=== PATIENT | male | born 1965 | race Caucasian/White ===

== ENCOUNTER 2019-10-28 17:57 | Emergency (ER) | payer MEDICARE, MEDICAID, SELFPAY ==
[2019-10-28] VITALS (8 sets, daily range): BP systolic 111–158; BP diastolic 80–90; PULSE 99–117; RESP 14–28; TEMP 37.2; O2SAT 93–99
--- NOTE | ~2019-10-28 | XR_ITS ---
EXAMINATION: XR chest 2V EXAM DATE: 10/28/2019 18:32 INDICATION: Shortness of breath, COPD, emphysema. TECHNIQUE: Frontal and lateral projections of the chest obtained and reviewed. Comparison is made to prior examination from 10/14/2019. FINDINGS: Near resolution of right middle lobe atelectasis previously seen. Lungs are moderately hype rinflated. No acute airspace disease, pneumothorax or pleural effusion. Cardiomediastinal silhouette is normal. IMPRESSION: Interval improvement of right middle lobe atelectasis. Hyperinflation. Reviewed, dictated and finalized at location A. MAKER IMPRESSION: Interval improvement of right middle lobe atelectasis. Hyperinflat ion.
--- NOTE | 2019-10-28 18:01 | ECG_ITS ---
Measurements Intervals [place] Rate: 116 P: 70 [place]: 116 QRS: 80 QRSD: 82 T: -60 QT: 302 QTc: 420 Interpretive Statements SINUS TACHYCARDIA WITH SHORT [place] INTERVAL DELAYED PRECORDIAL R/S TRANSITION NONSPECIFIC ST & T-WAVE ABNORMALITY- INF/LAT LEADS BASELINE ARTIFACT- I, II, III, AVR, AVL, AVF, V1-V2, V6 ABNORMAL ECG Electronically Signed On 10-29-2019 7:02:12 BUSINESS INTELLIGENCE DEVELOPER by Cal Carranza D.O.
[2019-10-28 18:25] LABS: Hematocrit 41.4 % (42.0-52.0); Hemoglobin 13.3 g/dL (14.0-18.0); Mean Corpuscular HGB Conc 32.1 g/dl (32-36); Mean Corpuscular Hemoglobin 34.6 pg (26-34); Mean Corpuscular Volume 107.8 fl (80-100); Mean Platelet Volume 11.1 fl (7.4-10.4); Platelet Count Result 127 k/mm3 (150-375); Red Blood Count 3.84 M/mm3 (4.6-6.20); Red Cell Distribution Width 15.7 % (11.5-14.5); White Blood Count 21.4 K/mm3 (4.5-10.0)
[2019-10-28 18:32] LABS: INR 0.9; Prothrombin Time 11.4 Seconds (11.1-14.7)
[2019-10-28 18:43] LABS: Band Neutrophils Percent 3 % (0-6); Lymphocytes Absolute Manual 1.07 K/mm3 (1.1-4.5); Monocytes Absolute Manual 0.21 K/mm3 (0.1-0.90); Monocytes Percent Manual 1 % (3-9); Neutrophils Absolute Manual 20.11 K/mm3 (1.3-6.7); Neutrophils Percent Manual 91 % (46-73); Nucleated Red Blood Cells 14 %; Total Cells Counted 100
[2019-10-28 18:44] LABS: Anisocytosis 2+ (NORMAL)
--- NOTE | 2019-10-28 18:47 | ED.SOB ---
HPI - SOB/Dyspnea General Chief Complaint: Shortness of Breath/Dyspnea Stated Complaint: SOB Time Seen by Provider: 10/28/19 18:34 Source: patient Mode of arrival: EMS Limitations: no limitations History of Present Illness HPI Narrative: A 54 y/o male presents to the ED, via EMS, with c/o SOB. Pt states that his lungs were not expanding at home today so he called EMS. He has a PMHx of COPD, emphysema, stem cell transplant, and home O2. Pt notes that he is on 3L home O2 during the day, 1-2L home O2 at night, and 5L home O2 during exertion. He was given 15L O2 en route and the patient states that his lungs now want to expand in the ED. Pt rates the SOB a 3/10 in severity in the ED. Dr. Khan is his as400 programmer. He reports BLE edema and urinary frequency. Pt takes Xarelto and Furosemide 20mg daily. He reports that he took double his dose of Furosemide today due to the BLE edema. MD elicited complaint: shortness of breath Pertinent past history: COPD and other (Emphysema, home O2) Timing: improved Relieving factors: oxygen Known history of: COPD and other (Emphysema, home O2) Associated symptoms: other (BLE edema, urinary frequency) Treatment prior to arrival: oxygen Related Data Home Medications Medication Instructions Recorded Confirmed Basaglar KwikPen U-100 Insulin 30 unit SUBCUT DAILY 09/17/19 10/15/19 Novolog Flexpen U-100 Insulin 9 unit SUBCUT TID 09/17/19 10/15/19 Xarelto 20 mg PO DAILY 09/17/19 10/15/19 acyclovir [Zovirax] 400 mg PO TID 09/17/19 10/15/19 albuterol sulfate 2.5 mg INHALATION Q6H PRN 09/17/19 10/15/19 albuterol sulfate [Ventolin HFA] 18 inh INHALATION QID 09/17/19 10/15/19 atorvastatin [Lipitor] 40 mg PO DAILY 09/17/19 10/15/19 furosemide [Lasix] 20 mg PO DAILY 09/17/19 10/15/19 gabapentin 100 mg PO DAILY PRN 09/17/19 10/15/19 gabapentin [Neurontin] 300 mg PO QID 09/17/19 10/15/19 guaifenesin 1,200 mg PO BID 09/17/19 10/15/19 insulin lispro [Humalog KwikPen 10 - 16 unit SUBCUT TID 09/17/19 10/15/19 Insulin] magnesium oxide [MagOx] 400 mg PO DAILY 09/17/19 10/15/19 montelukast [Singulair] 10 mg PO HS 09/17/19 10/15/19 mycophenolate mofetil [CellCept] 1,000 mg PO Q12H 09/17/19 10/15/19 ofloxacin [Ocuflox] 1 - 2 drp OPHTHALMIC (EYE) TID PRN 09/17/19 10/15/19 prednisone 20 mg PO DAILY 09/17/19 10/15/19 tacrolimus [Prograf] 0.5 mg PO EVERY OTHER DAY 09/17/19 10/15/19 sodium chloride 0.65 % nasal spray 2 spray NASAL QID PRN 10/06/19 10/15/19 aerosol Trelegy Ellipta See Rx Instructions .ROUTE .COMPLEX 10/15/19 10/15/19 nicotine [Nicoderm CQ] 1 patch TRANSDERMAL DAILY 10/15/19 10/15/19 tramadol 50 mg PO Q6H PRN MDD 3 10/15/19 10/15/19 Allergies Allergy/AdvReac Type Severity Reaction Status Date / Time adhesive Allergy Unknown Hives Verified 10/28/19 18:06 adhesive tape AdvReac Mild REDNESS Verified 10/28/19 18:06 AND IRRITATION Review of Systems Review of Systems: All systems reviewed & are unremarkable except as noted in HPI and below Cardiovascular: Cardiovascular: Reports edema (BLE) Respiratory: Respiratory: Reports dyspnea Genitourinary: Genitourinary: Reports urinary frequency [facility] Past Medical History Medical History (Updated 10/28/19 @ 20:49 by Wilbert Ayoub MD) Acute exacerbation of chronic obstructive airways disease Acute myeloid leukemia AML (acute myeloblastic leukemia) Anemia Anxiety Bilateral cataracts COPD (chronic obstructive pulmonary disease) Depression Diabetes 1.5, managed as type 2 DVT (deep venous thrombosis) Dysphagia Eczema Emphysema/COPD History of blood transfusion History of chemotherapy History of radiation therapy Hyperglycemia Hyperlipidemia Hypoxemic respiratory failure, chronic Left tibial fracture Liver failure MRSA (methicillin resistant staph aureus) culture positive On home O2 Peripheral neuropathy Peyronie's disease Pneumonia Pulmonary emboli Renal disease Renal failure Right middle lobe pulmonary infiltrate Tibia fracture Venous thr
[2019-10-28 18:55] LABS: Blood Urea Nitrogen 27 mg/dL (9-20); Calcium 8.1 mg/dL (8.4-10.2); Carbon Dioxide 31 mmol/L (22-30); Chloride 98 mmol/L (98-107); Estimated Glomerular Filt Rate > 60; Glucose 372 mg/dL (75-110); Potassium 3.7 mmol/L (3.4-5.0); Sodium 137 mmol/L (137-145)
[2019-10-28 19:05] LABS: NT Pro B Type Natriuretic Pept 526 PG/ML (5-100); Troponin I 0.022 ng/mL (0.000-0.034)
[2019-10-28] MEDS: BUMETANIDE INJ 1 MG/4 ML VIAL 2 MG IV PUSH (19:17)
[2019-10-28 19:20] LABS: Alveolar/Arterial O2 Gradient 77.7 mmHg; Base Excess ABG 6.5 mEq/l (+/-2.0); Device NASAL CANNULA; Fractional Inspired Oxygen 28 %; HCO3 ABG 32.5 mEq/l (22.0-26.0); Modified Allen's Test Pass; Oxygen Content ABG 17.7 %vol (16.0-22.0); Oxygen Saturation ABG 91.4 % (95.0-100.0); Oxyhemoglobin 88.9 % THb (90.0-100.0); PCO2 ABG 51.7 mmHg (35.0-45.0); PO2 ABG 60.9 mmHg (80.0-100.0); PO2 FiO2 Ratio Arterial Blood 2.17 %; Site Drawn RIGHT RADIAL; Total Hemoglobin 14.2 g/dL (12.0-18.0); pH ABG 7.416 (7.350-7.450)
[2019-10-28] MEDS: ALBUTEROL SULFATE NEB 2.5 MG/0.5 ML INH 5 MG INHALATION (19:24)
[2019-10-28] MEDS: IPRATROPIUM BR 0.02% INH SOLN 0.5 MG/2.5 ML VIAL INHALATION (19:24)
[2019-10-28 19:26] LABS: Hepatitis B Surface Antigen Negative (Negative)
[2019-10-28 19:43] LABS: HIV 1/2 Ab P24 Ag Result Negative (Negative); Hepatitis C Virus Antibody Negative (Negative)
[2019-10-28] MEDS: INSULIN HUMAN REGULAR (*BKC) 100 UNITS/ML 10 UNITS IV PUSH (21:01)
== END 2019-10-28 21:26 | disposition home or self-care (01) ==
PROVIDERS: Emergency Medicine; Emergency Provider Emergency Medicine; PCP Internal Medicine
DX: J44.9 Chronic obstructive pulmonary disease, unspecified (principal); E11.65 Type 2 diabetes mellitus with hyperglycemia; I27.81 Cor pulmonale (chronic); F17.210 Nicotine dependence, cigarettes, uncomplicated; Z94.84 Stem cells transplant status; Z99.81 Dependence on supplemental oxygen
CPT/HCPCS: 36415; 36600; 71046; 80048; 82805; 83880; 84484; 85025; 85610; 85730; 86703; 86803; 87340; 93005; 94640; 96374; 96375; 99284; G0432; J1815

== ENCOUNTER 2020-09-07 08:03 | Outpatient (CLI) | payer MEDICARE, MEDICAID, SELFPAY ==
[2020-09-07 08:45] VITALS: PULSE 96; O2SAT 93
[2020-09-07 08:50] VITALS: PULSE 137; O2SAT 92
[2020-09-07 09:15] VITALS: PULSE 98; O2SAT 93
--- NOTE | 2020-09-07 11:38 | HOMEO2EVAL ---
Home Oxygen Evaluation RC: Home Oxygen (O2) Evaluation Start: 09/07/20 11:33 Freq: Status: Active Protocol: RPE Activity Type Activity Date Activity User E-Sign Co-Sign Detail Recorded Client Recorded Date Recorded By Document 09/07/20 08:45 [email or web address] [email or web address] 09/07/20 11:37 DJO Document 09/07/20 08:50 [email or web address] [email or web address] 09/07/20 11:37 DJO Document 09/07/20 09:15 [email or web address] [email or web address] 09/07/20 11:37 DJO 09/07/20 09/07/20 09/07/20 08:45 08:50 09:15 Home O2 Evaluation Test Phase Resting Exercise Resting Oxygen Delivery Room Air Room Air Pulse Oximetry (90-100 %) 93 92 93 Pulse Rate (60-100 beats/min) 96 137 H 98 Ambulation Distance (feet) 1,000 Treatment Charges O2 Evaluation
== END 2020-09-07 08:04 | disposition home or self-care (01) ==
PROVIDERS: PCP Internal Medicine; Visit Provider Internal Medicine Critical Care Medicine
DX: J96.10 Chronic respiratory failure, unspecified whether with hypoxia or hypercapnia (principal)
CPT/HCPCS: 94618

== ENCOUNTER 2020-09-23 09:40 | Outpatient (CLI) | payer MEDICARE, MEDICAID, SELFPAY ==
[2020-09-23 10:22] VITALS: PULSE 96; O2SAT 98
[2020-09-23 10:26] VITALS: PULSE 115; O2SAT 92
[2020-09-23 10:35] VITALS: PULSE 103; O2SAT 98
--- NOTE | 2020-09-23 11:35 | HOMEO2EVAL ---
Home Oxygen Evaluation RC: Home Oxygen (O2) Evaluation Start: 09/23/20 11:29 Freq: Status: Active Protocol: RPE Activity Type Activity Date Activity User E-Sign Co-Sign Detail Recorded Client Recorded Date Recorded By Document 09/23/20 10:22 [email or web address] [email or web address] 09/23/20 11:30 KLA Document 09/23/20 10:26 [email or web address] [email or web address] 09/23/20 11:33 KLA Document 09/23/20 10:35 KLA [email or web address] 09/23/20 11:33 KLA 09/23/20 09/23/20 09/23/20 10:22 10:26 10:35 Home O2 Evaluation Test Phase Resting Exercise Resting Oxygen Delivery Room Air Room Air Room Air Pulse Oximetry (90-100 %) 98 92 98 Pulse Rate (60-100 beats/min) 96 115 H 103 H Ambulation Distance (feet) 400 Treatment Charges O2 Evaluation
== END 2020-09-23 09:41 | disposition home or self-care (01) ==
LOC: ANHPFT 09:41
PROVIDERS: PCP Internal Medicine; Visit Provider Nurse Practitioner Family
DX: J96.11 Chronic respiratory failure with hypoxia (principal)
CPT/HCPCS: 94618

== ENCOUNTER 2020-11-14 13:01 | Emergency (ER) | payer MEDICARE, MEDICAID, SELFPAY ==
--- NOTE | ~2020-11-14 | XR_ITS ---
XR chest 1V portable DATE: 11/14/2020 14:01 INDICATION: Palpitations TECHNIQUE: Portable upright AP views on 11/14/2020 at 1351 hours COMPARISON: AP and lateral views FINDINGS: Bilateral hyperinflation consistent with COPD. Minimal bilateral apical capping. No pulmona ry infiltrate or consolidation, pleural effusion or pulmonary vascular congestion or pneumothorax. No hilar or mediastinal enlargement. Aortic arch calcification. There is levoscoliosis of the upper thoracic spine. Diffuse osteopenia. IMPRESSION: COPD Reviewed, dictated and finalized at location A. AYS CONTROL SPECIALIST IMPRESSION: COPD
--- NOTE | 2020-11-14 13:15 | PC.NURSE ---
patient brought back to ED room 7 with c/o chest pressure and palpitations. HR 160's. alert. oriented. hx of COPD.
[2020-11-14 13:18] VITALS: BP 96/72; PULSE 101; RESP 20; TEMP 36.2; O2SAT 97
--- NOTE | 2020-11-14 13:28 | PC.NURSE ---
2nd EKG performed 1323, shown to CRYSTAL
--- NOTE | 2020-11-14 13:30 | PC.NURSE ---
patient converted to SR after valsalva maneuver per provider. NS continues. patient on quality assurance monitor body. alert. oriented. denies pain. aware of plan to monitor his heart rate and then plan for discharge. see provider notes for description of procedure.
--- NOTE | 2020-11-14 13:32 | ED.ARRPALP ---
HPI - Arrhythmia/Palpitations General Chief Complaint: Arrhythmia/Palpitations Stated Complaint: my heart rate is 165 Time Seen by Provider: 11/14/20 13:21 Source: patient Limitations: no limitations History of Present Illness HPI narrative: Patient is 55 years old white male was sitting on his bed this morning and suddenly noticed that his heart is running fast. Patient denies any fever, chills, nausea, vomiting, chest pain, shortness of breath, lightheadedness, back pain or headache. Patient had similar symptoms probably 2 years ago with a diagnosis of paroxysmal SVT. Patient denies any new medications. Patient did not take his regular medication in the morning prior to arrival. History of stem cell transplant over 10 years ago scheduled to see his oncologist next month for regular checkup. Related Data Home Medications Medication Instructions Recorded Confirmed Basaglar KwikPen U-100 Insulin 30 unit SUBCUT DAILY 09/17/19 08/08/20 Xarelto 20 mg PO DAILY 09/17/19 08/08/20 acyclovir [Zovirax] 400 mg PO TID 09/17/19 08/08/20 albuterol sulfate 2.5 mg INHALATION Q6H PRN 09/17/19 08/08/20 albuterol sulfate [Ventolin HFA] 18 inh INHALATION QID PRN 09/17/19 08/08/20 atorvastatin [Lipitor] 40 mg PO DAILY 09/17/19 08/08/20 gabapentin 100 mg PO DAILY PRN 09/17/19 08/08/20 gabapentin [Neurontin] 300 mg PO HS PRN 09/17/19 08/08/20 insulin lispro [Humalog KwikPen 10 - 16 unit SUBCUT TIDWM 09/17/19 08/08/20 Insulin] montelukast [Singulair] 10 mg PO HS 09/17/19 08/08/20 ofloxacin [Ocuflox] 1 - 2 drp OPHTHALMIC (EYE) BID PRN 09/17/19 08/08/20 tacrolimus [Prograf] 0.5 mg PO DAILY 09/17/19 08/08/20 sodium chloride 0.65 % nasal spray 2 spray NASAL QID PRN 10/06/19 08/08/20 aerosol Trelegy Ellipta See Rx Instructions .ROUTE .COMPLEX 10/15/19 08/08/20 Allergies Allergy/AdvReac Type Severity Reaction Status Date / Time adhesive Allergy Unknown Hives Verified 10/28/19 18:06 adhesive tape AdvReac Mild REDNESS Verified 10/28/19 18:06 AND IRRITATION Review of Systems Review of Systems: Narrative: CONSTITUTIONAL: Denies fever, chills, or sweats. EYES: Denies visual changes, redness, or discharge. ENT: Denies rhinorrhea, congestion, sore throat, or otalgia. CARDIOVASCULAR: Denies chest pain, palpitations, or edema. RESPIRATORY: Denies cough or dyspnea. GASTROINTESTINAL: Denies abdominal pain, nausea, vomiting, or diarrhea. GENITOURINARY: Denies dysuria or hematuria. SKIN: Denies rash or itching. MUSCULOSKELETAL: Denies back pain, joint pain, or myalgia. NEUROLOGIC: Denies headache, numbness, or weakness. PSYCHIATRIC: Denies anxiety or depression. [facility] Past Medical History Medical History (Updated 11/14/20 @ 13:50 by Desi Chambers MD) Acute exacerbation of chronic obstructive airways disease Acute myeloid leukemia AML (acute myeloblastic leukemia) Anemia Anxiety Bilateral cataracts COPD (chronic obstructive pulmonary disease) Depression Diabetes 1.5, managed as type 2 DVT (deep venous thrombosis) Dysphagia Eczema Emphysema/COPD History of blood transfusion History of chemotherapy History of radiation therapy Hyperglycemia Hyperlipidemia Hypoxemic respiratory failure, chronic Left tibial fracture Liver failure MRSA (methicillin resistant staph aureus) culture positive On home O2 Peripheral neuropathy Peyronie's disease Pneumonia Pulmonary emboli Renal disease Renal failure Right middle lobe pulmonary infiltrate Tibia fracture Venous thromboembolism Surgical History Surgical History History of orthopedic surgery Left tibia liz placement History of stem cell transplant Family History Family History Mother Acute myocardial infarction Father COPD (chronic obstructive pulmonary disease) Diabetes mellitus Alcohol abuse Social History Social History (Reviewed 11/14/20 @ 13:46 by Desi Chambers
[2020-11-14] MEDS: SODIUM CHLORIDE 0.9% IV 1,000 ML 999 ML (13:39)
[2020-11-14 13:40] LABS: Basophils Absolute Auto 0.1 K/mm3 (0.0-0.1); Basophils Percent Auto 1.1 % (0.2-1.2); Eosinophils Absolute Auto 0.6 K/mm3 (0-0.3); Eosinophils Percent Auto 6.5 % (0-4.4); Hematocrit 45.3 % (42.0-52.0); Hemoglobin 15.9 g/dL (14.0-18.0); Immature Granulocyte Absolute 0.03 K/mm3 (0.00-0.031); Immature Granulocyte Percent A 0.3 % (0-0.5); Lymphocytes Absolute Auto 4.87 K/mm3 (0.9-3.2); Lymphocytes Percent Auto 50.8 % (18.3-44.2); Mean Corpuscular HGB Conc 35.1 g/dl (32-36); Mean Corpuscular Hemoglobin 34.4 pg (26-34); Mean Corpuscular Volume 98.1 fl (80-100); Mean Platelet Volume 10.6 fl (7.4-10.4); Monocytes Absolute Auto 0.8 K/mm3 (0.1-0.6); Monocytes Percent Auto 8.4 % (2.6-8.5); Neutrophils Absolute Auto 3.2 K/mm3 (1.3-6.7); Neutrophils Percent Auto 32.9 % (45.5-73.1); Nucleated Red Blood Cells Perc 0.3 % (0.0-0.2); Platelet Count Result 321 k/mm3 (150-375); Red Blood Count 4.62 M/mm3 (4.6-6.20); Red Cell Distribution Width 13.5 % (11.5-14.5); White Blood Count 9.6 K/mm3 (4.5-10.0)
[2020-11-14 13:53] LABS: Alanine Aminotransferase 52 U/L (4-50); Albumin Level 4.1 g/dL (3.5-5.1); Alkaline Phosphatase 244 U/L (38-126); Anion Gap 8 mmol/L (8-16); Aspartate Amino Transferase 38 U/L (17-59); Bilirubin,Total 0.6 mg/dL (0.2-1.3); Blood Urea Nitrogen 15 mg/dL (9-20); Calcium 9.7 mg/dL (8.4-10.2); Carbon Dioxide 29 mmol/L (22-30); Chloride 96 mmol/L (98-107); Estimated CRCL calculation 88 ml/min; Estimated Glomerular Filt Rate > 60; Glucose 368 mg/dL (75-110); Potassium 4.7 mmol/L (3.4-5.0); Sodium 133 mmol/L (137-145)
[2020-11-14 14:05] LABS: Troponin I < 0.012 ng/mL (0.000-0.034)
--- NOTE | 2020-11-14 14:05 | ECG_ITS ---
Measurements Intervals [place] Rate: 169 P: [place]: 0 QRS: 95 QRSD: 104 T: 66 QT: 262 QTc: 439 Interpretive Statements SUPRAVENTRICULAR TACHYCARDIA RIGHT AXIS DEVIATION DELAYED PRECORDIAL R/S TRANSITION ST-T WAVE ABNORMALITY IN ANTEROLAT/INF LEADS- CONSIDER ISCHEMIA BASELINE ARTIFACT- V3 ABNORMAL ECG Electronically Signed On 11-14-2020 14:07:27 PAINT FORMULATOR by Cal Carranza D.O.
--- NOTE | 2020-11-14 14:06 | ECG_ITS ---
Measurements Intervals [place] Rate: 86 P: 89 [place]: 144 QRS: 99 QRSD: 90 T: 80 QT: 345 QTc: 414 Interpretive Statements SINUS RHYTHM RIGHT AXIS DEVIATION DELAYED PRECORDIAL R/S TRANSITION BASELINE ARTIFACT- I, III BORDERLINE ECG Electronically Signed On 11-14-2020 14:07:51 WILD LIFE PHOTOGRAPHER by Cal Carranza D.O.
--- NOTE | 2020-11-14 14:45 | PC.NURSE ---
repeat EKG done and given to provider. sitting on stretcher. on surveillance monitor. denies needs.
== END 2020-11-14 14:53 | disposition home or self-care (01) ==
PROVIDERS: Emergency Provider Emergency Medicine; PCP Internal Medicine
DX: I47.1 Supraventricular tachycardia (principal); E13.42 Other specified diabetes mellitus with diabetic polyneuropathy; Z79.4 Long term (current) use of insulin; Z85.6 Personal history of leukemia; Z92.21 Personal history of antineoplastic chemotherapy; Z92.3 Personal history of irradiation; E78.5 Hyperlipidemia, unspecified; J96.11 Chronic respiratory failure with hypoxia; K72.90 Hepatic failure, unspecified 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; N48.6 Induration penis plastica; J44.9 Chronic obstructive pulmonary disease, unspecified; Z86.718 Personal history of other venous thrombosis and embolism; Z86.2 Personal history of diseases of the blood and blood-forming organs and certain disorders involving the immune mechanism; R94.31 Abnormal electrocardiogram [ECG] [EKG]
CPT/HCPCS: 36415; 71045; 80053; 84484; 85025; 93005; 96360; 99284; J0153; J7030

== ENCOUNTER 2021-06-12 13:55 | Outpatient (CLI) | payer MEDICARE, MEDICAID, SELFPAY ==
--- NOTE | 2021-06-12 16:32 | WPDPFTINT ---
PFT Procedure Performed PFT Procedure Performed Spirometry with Pre/Post Bronchodilator Plethysmography (Lung Vol) Diffusing Cap (DLCO) Flow Vol Loop PFT Interpretation This is a pulmonary function test with pre and post-bronchodilator spirometry, plethysmography and diffusing capacity. The test was performed and results interpreted in accordance with the 2019 and 2005 ATS/ERS Task Force guidelines respectively using the Global Lung Function Initiative-2012 reference equations. Patient demonstrated good effort and cooperation. Reproducibility criteria were met. The quality of the pre bronchodilator spirometry maneuver was Grade A and post bronchodilator spirometry maneuver was Grade B. Findings: Spirometry: there is decreased maximal expiratory airflow at all lung volumes with a concave expiratory flow tracing. The contour the inspiratory flow tracing is normal. The pre bronchodilator FVC is 4.30 L, 86% predicted. The pre bronchodilator FEV1 is 1.24 L, 32% predicted. The FEV1: FVC ratio was 29%. The post bronchodilator FVC is 3.95 L, representing an 8% decrease. The post bronchodilator FEV1 is 1.29 L, representing a 5% increase. Plethysmography: The total lung capacity is 7.80 L, 109% predicted. Functional residual capacity is 6.76 L, 183% predicted. The residual volume is 3.51 L, 162% predicted. Diffusing capacity: The absolute diffusion capacity is 8.9, 29% predicted. The diffusing capacity corrected for alveolar volume is 1.80, 41% predicted. Impression: There is a very severe obstructive abnormality without significant improvement after inhaling a single dose of albuterol. The increase in residual volume is consistent with air trapping from an obstructive abnormality. Hyperinflation is present is demonstrated by the increase in functional residual capacity and is consistent with an obstructive abnormality. The absolute diffusing capacity is severely decreased and remains moderately decreased when corrected for alveolar volume. There are no prior studies for comparison
== END 2021-06-12 13:56 | disposition home or self-care (01) ==
LOC: ANHPFT 13:58
PROVIDERS: PCP Internal Medicine; Visit Provider Internal Medicine Pulmonary Disease
DX: R06.00 Dyspnea, unspecified (principal); R94.2 Abnormal results of pulmonary function studies
CPT/HCPCS: 94060; 94726; 94729

== ENCOUNTER 2021-08-30 20:41 | Emergency (ER) | payer MEDICARE, MEDICAID, SELFPAY ==
--- NOTE | ~2021-08-30 | XR_ITS ---
EXAMINATION: XR chest 2V DATE: 08/30/2021 22:03 INDICATION: Shortness of breath. TECHNIQUE: Frontal and lateral views of the chest were obtained. COMPARISON: Chest single view 11/06/2020, chest CT 07/14/2018 FINDINGS: The lungs are hyperexpanded with lucencies, consistent with emphysema. There is mild scarri ng at the lung apices. There is chronic atelectasis in right middle lobe. No pleural effusion or pneu mothorax. The heart size is normal. IMPRESSION: 1. Mild scarring at the lung apices. 2. Chronic atelectasis in right middle lobe. 3. Emphysema. Reviewed, dictated and finalized at location A.
--- NOTE | ~2021-08-30 | XR_ITS ---
EXAMINATION: XR chest 1V portable EXAM DATE: 08/31/2021 00:57 INDICATION: Shortness Of Breath TECHNIQUE: Portable AP frontal chest x-ray was obtained. Comparison is made to prior examination from 08/30/2021. FINDINGS: The lungs are hyperinflated which can be seen with chronic obstructive pulmonary disease (a clinical diagnosis of functional impairment), but is not diagnostic of it. The lungs are clear. The re are no pleural effusions. The cardiomediastinal silhouette silhouette narrowed from the hyperinfl ated lungs. There is no pneumothorax suspected. There is mild thoracic dextroscoliosis. IMPRESSION: 1. No acute cardiopulmonary findings. 2. Hyperinflation. Reviewed, dictated and finalized at location A.
[2021-08-30 21:26] VITALS: BP 120/95; PULSE 83; RESP 16; TEMP 36.1; O2SAT 98
--- NOTE | 2021-08-30 21:30 | ECG_ITS ---
Measurements Intervals [place] Rate: 85 P: 86 [place]: 137 QRS: 121 QRSD: 94 T: 76 QT: 362 QTc: 433 Interpretive Statements SINUS RHYTHM LIMB LEAD REVERSAL POSSIBLE RIGHT ATRIAL ENLARGEMENT POOR R WAVE PROGRESSION, ANTERIOR LEADS BASELINE ARTIFACT- I, III, AVF, V1 BORDERLINE ECG Electronically Signed On 08-31-2021 6:28:58 CDT by Cal Carranza D.O.
[2021-08-30 21:47] LABS: Basophils Absolute Auto 0.1 K/mm3 (0.0-0.1); Basophils Percent Auto 0.7 % (0.2-1.2); Eosinophils Absolute Auto 0.3 K/mm3 (0-0.3); Eosinophils Percent Auto 2.6 % (0-4.4); Hematocrit 42.9 % (42.0-52.0); Hemoglobin 14.7 g/dL (14.0-18.0); Immature Granulocyte Absolute 0.04 K/mm3 (0.00-0.031); Immature Granulocyte Percent A 0.3 % (0-0.5); Lymphocytes Percent Auto 49.6 % (18.3-44.2); Mean Corpuscular HGB Conc 34.3 g/dl (32-36); Mean Corpuscular Hemoglobin 34.5 pg (26-34); Mean Corpuscular Volume 100.7 fl (80-100); Mean Platelet Volume 9.9 fl (7.4-10.4); Monocytes Absolute Auto 1.1 K/mm3 (0.1-0.6); Monocytes Percent Auto 8.8 % (2.6-8.5); Neutrophils Absolute Auto 4.9 K/mm3 (1.3-6.7); Platelet Count Result 269 k/mm3 (150-375); Red Blood Count 4.26 M/mm3 (4.6-6.20); Red Cell Distribution Width 14.2 % (11.5-14.5); White Blood Count 12.9 K/mm3 (4.5-10.0)
[2021-08-30 22:29] LABS: Anion Gap 6 mmol/L (8-16); Blood Urea Nitrogen 14 mg/dL (9-20); Calcium 9.6 mg/dL (8.4-10.2); Carbon Dioxide 33 mmol/L (22-30); Chloride 98 mmol/L (98-107); Estimated CRCL calculation 82 ml/min; Estimated Glomerular Filt Rate > 60; Glucose 143 mg/dL (65-110); Potassium 4.4 mmol/L (3.4-5.0); Sodium 137 mmol/L (137-145)
[2021-08-30 23:44] VITALS: BP 117/85; PULSE 56; RESP 17; O2SAT 100
[2021-08-30 23:45] VITALS: O2SAT 99
--- NOTE | 2021-08-31 00:20 | ED.SOB ---
HPI - SOB/Dyspnea General Chief Complaint: Shortness of Breath/Dyspnea Stated Complaint: SOB/COPD Time Seen by Provider: 08/30/21 23:32 Source: patient Mode of arrival: ambulatory Limitations: no limitations History of Present Illness HPI Narrative: Patient is a 55-year-old male with a history of AML s/p stem cell transplant in 2008, COPD, chronic respiratory failure on 2 to 3 L home oxygen, DVT, anticoagulated on Xarelto, presenting for evaluation of shortness of breath. Patient states that he has felt short of breath over the past 36 hours with audible wheezing, productive cough. Patient states his oxygen requirement has been at baseline. He denies fever, chills, chest pain. He denies palpitations or pleuritic pain. No lower extremity edema, no calf pain, bruising, tenderness. Patient is compliant with his Xarelto. Has not missed any doses. Patient is still smoking. Patient's oncology patient navigator is Dr. Del Valle. States he tried 2 nebulizer treatments at home without much improvement in his symptoms. He has been congested as well. He denies recent sick contacts. He is vaccinated for COVID. Related Data Home Medications Medication Instructions Recorded Confirmed Basaglar KwikPen U-100 Insulin 30 unit SUBCUT DAILY 09/17/19 05/23/21 albuterol sulfate 2.5 mg INHALATION Q6H PRN 09/17/19 05/23/21 albuterol sulfate [Ventolin HFA] 18 inh INHALATION QID PRN 09/17/19 05/23/21 atorvastatin [Lipitor] 40 mg PO DAILY 09/17/19 05/23/21 gabapentin 100 mg PO DAILY PRN 09/17/19 05/23/21 gabapentin [Neurontin] 300 mg PO HS PRN 09/17/19 05/23/21 insulin lispro [Humalog KwikPen 10 - 16 unit SUBCUT TIDWM 09/17/19 05/23/21 Insulin] montelukast [Singulair] 10 mg PO HS 09/17/19 05/23/21 ofloxacin [Ocuflox] 1 - 2 drp OPHTHALMIC (EYE) BID PRN 09/17/19 05/23/21 tacrolimus [Prograf] 0.5 mg PO DAILY 09/17/19 05/23/21 sodium chloride 0.65 % nasal spray 2 spray NASAL QID PRN 10/06/19 05/23/21 aerosol Allergies Allergy/AdvReac Type Severity Reaction Status Date / Time adhesive Allergy Unknown Hives Verified 05/23/21 13:36 adhesive tape AdvReac Mild REDNESS Verified 05/23/21 13:36 AND IRRITATION Review of Systems Review of Systems: CONSTITUTIONAL: Denies fever, chills, or sweats. EYES: Denies visual changes, redness, or discharge. ENT: Reports rhinorrhea and congestion CARDIOVASCULAR: Denies chest pain, palpitations, or edema. RESPIRATORY: Reports cough and shortness of breath GASTROINTESTINAL: Denies abdominal pain, nausea, vomiting, or diarrhea. GENITOURINARY: Denies dysuria or hematuria. SKIN: Denies rash or itching. MUSCULOSKELETAL: Denies back pain, joint pain, or myalgia. NEUROLOGIC: Denies headache, numbness, or weakness. [facility] Past Medical History Medical History Acute exacerbation of chronic obstructive airways disease Acute myeloblastic leukemia, in remission Acute myeloid leukemia AML (acute myeloblastic leukemia) Anemia Anxiety Bilateral cataracts COPD (chronic obstructive pulmonary disease) Depression Diabetes 1.5, managed as type 2 DVT (deep venous thrombosis) Dysphagia Eczema Emphysema/COPD History of blood transfusion History of chemotherapy History of radiation therapy Hyperglycemia Hyperlipidemia Hypoxemic respiratory failure, chronic Left tibial fracture Liver failure MRSA (methicillin resistant staph aureus) culture positive On home O2 Peripheral neuropathy Peyronie's disease Pneumonia Pulmonary emboli Renal disease Renal failure Right middle lobe pulmonary infiltrate Tibia fracture Venous thromboembolism Surgical History Surgical History History of orthopedic surgery Left tibia liz placement History of stem cell transplant Family History Family History Mother Acute myocardial infarction Father COPD (chronic obstructive pu
[2021-08-31] MEDS: ALBUTEROL SULFATE NEB 2.5 MG/0.5 ML INH 5 MG INHALATION (00:54)
[2021-08-31] MEDS: IPRATROPIUM BR 0.02% INH SOLN 0.5 MG/2.5 ML VIAL INHALATION (00:54)
[2021-08-31 01:07] VITALS: PULSE 64; RESP 18
[2021-08-31 01:12] LABS: Alveolar/Arterial O2 Gradient 7.9 mmHg; Base Excess ABG 0.8 mEq/l (+/-2.0); Carboxyhemoglobin 1.4 % THb (0-2.0); Device NASAL CANNULA; Fractional Inspired Oxygen 24 %; Modified Allen's Test Pass; Oxygen Content ABG 19.8 %vol (16.0-22.0); Oxyhemoglobin 96.5 % THb (90.0-100.0); PCO2 ABG 43.6 mmHg (35.0-45.0); PO2 ABG 111.3 mmHg (80.0-100.0); PO2 FiO2 Ratio Arterial Blood 4.64 %; Reduced Hemoglobin 2.1 %THb (0-5.0); Site Drawn LEFT RADIAL; Total Hemoglobin 14.5 g/dL (12.0-18.0); pH ABG 7.393 (7.350-7.450)
[2021-08-31 01:14] VITALS: PULSE 65; RESP 18
[2021-08-31 01:49] VITALS: BP 129/80; PULSE 55; RESP 19; O2SAT 99
[2021-08-31] MEDS: SODIUM CHLORIDE 0.9% IV 500 ML 999 ML IV CONT (01:51)
[2021-08-31] MEDS: methylPREDNISolone SOD SUCC 125 MG VIAL IV PUSH (01:52)
[2021-08-31] MEDS: MAGNESIUM SULF 2 GM/WATER 50ML 2 GM/50 ML BAG IVPB (01:56)
[2021-08-31 03:14] VITALS: BP 134/70; PULSE 67; RESP 20; O2SAT 97
[2021-08-31 18:09] LABS: SARS-CoV-2 RNA PCR Negative
== END 2021-08-31 03:18 | disposition home or self-care (01) ==
PROVIDERS: Emergency Provider Emergency Medicine; PCP Internal Medicine
DX: J44.1 Chronic obstructive pulmonary disease with (acute) exacerbation (principal); J96.11 Chronic respiratory failure with hypoxia; Z99.81 Dependence on supplemental oxygen; C92.01 Acute myeloblastic leukemia, in remission; E78.5 Hyperlipidemia, unspecified; E11.42 Type 2 diabetes mellitus with diabetic polyneuropathy; N19 Unspecified kidney failure; K72.90 Hepatic failure, unspecified 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; Z86.2 Personal history of diseases of the blood and blood-forming organs and certain disorders involving the immune mechanism; Z79.4 Long term (current) use of insulin; Z86.718 Personal history of other venous thrombosis and embolism; Z92.3 Personal history of irradiation; Z92.21 Personal history of antineoplastic chemotherapy; Z86.14 Personal history of Methicillin resistant Staphylococcus aureus infection; Z86.711 Personal history of pulmonary embolism; Z87.01 Personal history of pneumonia (recurrent); Z94.84 Stem cells transplant status; Z87.891 Personal history of nicotine dependence; Z20.822 Contact with and (suspected) exposure to COVID-19
CPT/HCPCS: 36415; 36600; 71045; 71046; 80048; 82375; 82805; 83050; 85025; 93005; 94640; 96365; 96375; 99285; C9803; J2930; J3475; J7040; U0003; U0005

== ENCOUNTER 2021-09-03 18:18 | Emergency (ER) | payer MEDICARE, MEDICAID, SELFPAY ==
--- NOTE | ~2021-09-03 | XR_ITS ---
EXAMINATION: XR shoulder LT min 2V DATE: 09/03/2021 19:17 INDICATION: Left shoulder pain. TECHNIQUE: 6 views of left shoulder were obtained. COMPARISON: None. FINDINGS: Bone alignment is normal. No fracture. There is mild osteoarthritis of glenohumeral joint a nd acromioclavicular joint. IMPRESSION: 1. Mild polyarticular osteoarthritis. Reviewed, dictated and finalized at location A.
[2021-09-03 18:39] VITALS: BP 166/89; PULSE 56; RESP 18; TEMP 36.6; O2SAT 92
--- NOTE | 2021-09-03 20:32 | ED.GENADULT ---
HPI - General Adult General Chief complaint: Extremity Injury, Upper Stated complaint: L shoulder pain Time Seen by Provider: 09/03/21 19:02 Source: patient Mode of arrival: ambulatory Limitations: no limitations History of Present Illness HPI narrative: Patient with leukemia reports pain and tightness in the muscle to the left of his neck and shoulder which began when opening a soda. He states he took a tylenol which didn't help. He states he also took ibuprofen and it didn't help. He denies any falls or any other injuries. Related Data Home Medications Medication Instructions Recorded Confirmed Basaglar KwikPen U-100 Insulin 30 unit SUBCUT DAILY 09/17/19 05/23/21 albuterol sulfate 2.5 mg INHALATION Q6H PRN 09/17/19 05/23/21 albuterol sulfate [Ventolin HFA] 18 inh INHALATION QID PRN 09/17/19 05/23/21 atorvastatin [Lipitor] 40 mg PO DAILY 09/17/19 05/23/21 gabapentin 100 mg PO DAILY PRN 09/17/19 05/23/21 gabapentin [Neurontin] 300 mg PO HS PRN 09/17/19 05/23/21 insulin lispro [Humalog KwikPen 10 - 16 unit SUBCUT TIDWM 09/17/19 05/23/21 Insulin] montelukast [Singulair] 10 mg PO HS 09/17/19 05/23/21 ofloxacin [Ocuflox] 1 - 2 drp OPHTHALMIC (EYE) BID PRN 09/17/19 05/23/21 tacrolimus [Prograf] 0.5 mg PO DAILY 09/17/19 05/23/21 sodium chloride 0.65 % nasal spray 2 spray NASAL QID PRN 10/06/19 05/23/21 aerosol Allergies Allergy/AdvReac Type Severity Reaction Status Date / Time adhesive Allergy Unknown Hives Verified 05/23/21 13:36 adhesive tape AdvReac Mild REDNESS Verified 05/23/21 13:36 AND IRRITATION Review of Systems Review of Systems: CONSTITUTIONAL: Denies fever, chills, or sweats. EYES: Denies visual changes, redness, or discharge. ENT: Denies rhinorrhea, congestion, sore throat, or otalgia. CARDIOVASCULAR: Denies chest pain, palpitations, or edema. RESPIRATORY: Denies cough or dyspnea. GASTROINTESTINAL: Denies abdominal pain, nausea, vomiting, or diarrhea. GENITOURINARY: Denies dysuria or hematuria. SKIN: Denies rash or itching. MUSCULOSKELETAL: Reports muscle and shoulder pain Denies back pain, myalgia, or joint pain NEUROLOGIC: Denies headache, numbness, dizziness, or weakness. PSYCHIATRIC: Denies anxiety or depression. [facility] Past Medical History Medical History Acute exacerbation of chronic obstructive airways disease Acute myeloblastic leukemia, in remission Acute myeloid leukemia AML (acute myeloblastic leukemia) Anemia Anxiety Bilateral cataracts COPD (chronic obstructive pulmonary disease) Depression Diabetes 1.5, managed as type 2 DVT (deep venous thrombosis) Dysphagia Eczema Emphysema/COPD History of blood transfusion History of chemotherapy History of radiation therapy Hyperglycemia Hyperlipidemia Hypoxemic respiratory failure, chronic Left tibial fracture Liver failure MRSA (methicillin resistant staph aureus) culture positive On home O2 Peripheral neuropathy Peyronie's disease Pneumonia Pulmonary emboli Renal disease Renal failure Right middle lobe pulmonary infiltrate Tibia fracture Venous thromboembolism Surgical History Surgical History History of orthopedic surgery Left tibia liz placement History of stem cell transplant Family History Family History Mother Acute myocardial infarction Father COPD (chronic obstructive pulmonary disease) Diabetes mellitus Alcohol abuse Social History Social History Social History: Quit Smoking 09/29/2019 Smoking packs per day: 1 Smoking cigarettes per day: 20.0 Years smoked: 43 Smoking pack-years: 43.00 Smoking status: Current every day smoker Tobacco type: cigarettes Smoking end date: 09/29/19 Additional smoking assessment comments: has been trying to quit. Using ther patch
[2021-09-03 20:46] VITALS: BP 167/102; PULSE 48; RESP 16; TEMP 36.6; O2SAT 100
--- NOTE | 2021-09-03 21:02 | PC.NURSE ---
Pt here for c/o left shoulder pain after opening a bottle of soda this am. no obvious injury or deformity. wears 2L home O2. d/c in wc to wr by this RN. Pt verbalized understanding of d/c instructions, but needs reinforcement RE: tylenol/ibuprofen use - pt stated They don't work , warm/cold packs and gentle stretching/massage.
== END 2021-09-03 21:07 | disposition home or self-care (01) ==
PROVIDERS: Emergency Provider Emergency Medicine; PCP Internal Medicine
DX: M62.838 Other muscle spasm (principal); J43.9 Emphysema, unspecified; E11.9 Type 2 diabetes mellitus without complications; E78.5 Hyperlipidemia, unspecified; Z85.6 Personal history of leukemia; Z86.718 Personal history of other venous thrombosis and embolism; Z99.81 Dependence on supplemental oxygen; Z79.4 Long term (current) use of insulin; Z87.891 Personal history of nicotine dependence
CPT/HCPCS: 73030; 99283

== ENCOUNTER 2021-09-06 17:02 | Emergency (ER) | payer MEDICARE, MEDICAID, SELFPAY ==
[2021-09-06 17:31] VITALS: BP 144/77; PULSE 99; RESP 20; TEMP 35.9; O2SAT 98
[2021-09-06 17:50] LABS: Hematocrit 45.4 % (42.0-52.0); Hemoglobin 16.1 g/dL (14.0-18.0); Mean Corpuscular HGB Conc 35.5 g/dl (32-36); Mean Corpuscular Hemoglobin 34.6 pg (26-34); Mean Corpuscular Volume 97.6 fl (80-100); Mean Platelet Volume 10.5 fl (7.4-10.4); Platelet Count Result 183 k/mm3 (150-375); Red Blood Count 4.65 M/mm3 (4.6-6.20); White Blood Count 11.9 K/mm3 (4.5-10.0)
[2021-09-06 18:03] LABS: Albumin Level 3.9 g/dL (3.5-5.1); Alkaline Phosphatase 217 U/L (38-126); Anion Gap 13 mmol/L (8-16); Bilirubin,Total 3.5 mg/dL (0.2-1.3); Blood Urea Nitrogen 27 mg/dL (9-20); Calcium 9.5 mg/dL (8.4-10.2); Carbon Dioxide 22 mmol/L (22-30); Chloride 102 mmol/L (98-107); Estimated CRCL calculation 93 ml/min; Estimated Glomerular Filt Rate > 60; Glucose 127 mg/dL (65-110); Lipase 85 U/L (23-300); Potassium 4.2 mmol/L (3.4-5.0); Sodium 137 mmol/L (137-145)
[2021-09-06 18:14] LABS: Band Neutrophils Percent 3 % (0-6); Lymphocytes Absolute Manual 0.95 K/mm3 (1.1-4.5); Monocytes Absolute Manual 0.11 K/mm3 (0.1-0.90); Monocytes Percent Manual 1 % (3-9); Neutrophils Absolute Manual 10.82 K/mm3 (1.3-6.7); Neutrophils Percent Manual 88 % (46-73); Platelet Estimate Adequate (Adequate); Total Cells Counted 100
[2021-09-06 18:21] LABS: Alanine Aminotransferase > 3750 U/L (4-50); Aspartate Amino Transferase 2376 U/L (17-59)
== END 2021-09-07 02:31 | disposition left against medical advice (07) ==
PROVIDERS: Family Medicine; PCP Internal Medicine
DX: R11.2 Nausea with vomiting, unspecified (principal)
CPT/HCPCS: 36415; 80053; 83690; 85025; 99199

== ENCOUNTER 2021-09-19 13:07 | Outpatient (CLI) | payer MEDICARE, MEDICAID, SELFPAY ==
--- NOTE | ~2021-09-19 | XR_ITS ---
EXAMINATION: XR abdomen/kub 1V INDICATION: History of biliary duct stent placement TECHNIQUE: Supine views of the abdomen were obtained on 2 radiographs. COMPARISON: CT, 11/23/2017 FINDINGS: A right upper quadrant stent is present which may be in the common bile duct. There are no dilated loops of bowel. The visualized lung bases are clear. Lucencies in the bilateral sacral iliac wings likely reflect the sites of prior orthopedic hardware. IMPRESSION: 1. Right upper quadrant stent, otherwise unremarkable examination. Reviewed, dictated and finalized at location B.
[2021-09-19 15:07] LABS: Alanine Aminotransferase 91 U/L (4-50); Albumin Level 3.6 g/dL (3.5-5.1); Alkaline Phosphatase 334 U/L (38-126); Anion Gap 3 mmol/L (8-16); Aspartate Amino Transferase 34 U/L (17-59); Bilirubin,Total 0.9 mg/dL (0.2-1.3); Blood Urea Nitrogen 13 mg/dL (9-20); Calcium 8.4 mg/dL (8.4-10.2); Carbon Dioxide 39 mmol/L (22-30); Chloride 93 mmol/L (98-107); Estimated Glomerular Filt Rate > 60; Glucose 278 mg/dL (65-110); Potassium 3.9 mmol/L (3.4-5.0); Sodium 135 mmol/L (137-145)
== END 2021-09-19 13:08 | disposition home or self-care (01) ==
LOC: ANHIMG 13:13
PROVIDERS: PCP Internal Medicine
DX: Z98.890 Other specified postprocedural states (principal)
CPT/HCPCS: 36415; 74018; 80053

== ENCOUNTER 2021-11-27 00:18 | Emergency (ER) | payer MEDICARE, MEDICAID, SELFPAY ==
--- NOTE | ~2021-11-27 | CT_ITS ---
EXAMINATION: CT abdomen pelvis wo con DATE: 11/27/2021 03:23 INDICATION: Right flank pain. TECHNIQUE: Computed tomography (CT) of the abdomen and pelvis was performed without intravenous contr ast. Automated exposure control and iterative reconstruction technique were employed. The dose-length product was 248.62 mGy-cm. COMPARISON: CT abdomen and pelvis 11/23/2017 FINDINGS: The visualized portions of the lung bases demonstrate severe emphysema and mild atelectasis and scarring. No pleural effusion. The heart size is normal. There are coronary artery calcification s. No pericardial effusion. There is wall thickening of the distal esophagus. The liver is normal. Th e gallbladder is normal in size and contains gallstones. The spleen is small. The pancreas, adrenal g lands, and kidneys are normal. There is an umbilical hernia containing fat. There is diverticulosis o f the colon without evidence of diverticulitis. There are no dilated loops of bowel. The appendix is normal. There are no pathologically enlarged lymph nodes. There is no free intraperitoneal fluid. The re is a benign bone island in left ilium. There is mild lumbar spondylosis. IMPRESSION: 1. No urolithiasis. 2. Cholelithiasis. 3. Umbilical hernia containing fat. 4. Wall thickening of the distal esophagus, likely esophagitis. Reviewed, dictated and finalized at location B. T ORDER COOK
[2021-11-27 00:45] VITALS: BP 129/62; PULSE 91; RESP 18; TEMP 36.4; O2SAT 100
[2021-11-27] MEDS: CYCLOBENZAPRINE HCL 10 MG TABLET PO (03:38)
[2021-11-27] MEDS: KETOROLAC 30 MG/ML VIAL (*BKC) 15 MG IV PUSH (03:38)
[2021-11-27] MEDS: ONDANSETRON INJ 4 MG/2 ML VIAL (03:39)
[2021-11-27 03:42] VITALS: BP 157/75; PULSE 71; RESP 18; O2SAT 100
[2021-11-27 03:53] LABS: Basophils Absolute Auto 0.1 K/mm3 (0.0-0.1); Basophils Percent Auto 0.4 % (0.2-1.2); Eosinophils Absolute Auto 0.2 K/mm3 (0-0.3); Eosinophils Percent Auto 1.2 % (0-4.4); Hematocrit 40.9 % (42.0-52.0); Hemoglobin 14.2 g/dL (14.0-18.0); Immature Granulocyte Absolute 0.08 K/mm3 (0.00-0.031); Immature Granulocyte Percent A 0.5 % (0-0.5); Lymphocytes Absolute Auto 3.66 K/mm3 (0.9-3.2); Lymphocytes Percent Auto 22.7 % (18.3-44.2); Mean Corpuscular HGB Conc 34.7 g/dl (32-36); Mean Corpuscular Hemoglobin 36.5 pg (26-34); Mean Corpuscular Volume 105.1 fl (80-100); Mean Platelet Volume 10.3 fl (7.4-10.4); Monocytes Percent Auto 6.3 % (2.6-8.5); Neutrophils Absolute Auto 11.1 K/mm3 (1.3-6.7); Neutrophils Percent Auto 68.9 % (45.5-73.1); Platelet Count Result 255 k/mm3 (150-375); Red Blood Count 3.89 M/mm3 (4.6-6.20); Red Cell Distribution Width 13.5 % (11.5-14.5); White Blood Count 16.1 K/mm3 (4.5-10.0)
[2021-11-27 04:07] LABS: Alanine Aminotransferase 48 U/L (4-50); Albumin Level 4.2 g/dL (3.5-5.1); Alkaline Phosphatase 137 U/L (38-126); Anion Gap 8 mmol/L (8-16); Aspartate Amino Transferase 49 U/L (17-59); Blood Urea Nitrogen 22 mg/dL (9-20); Calcium 9.2 mg/dL (8.4-10.2); Carbon Dioxide 30 mmol/L (22-30); Chloride 96 mmol/L (98-107); Estimated CRCL calculation 87 ml/min; Estimated Glomerular Filt Rate > 60; Glucose 125 mg/dL (65-110); Potassium 3.8 mmol/L (3.4-5.0); Sodium 134 mmol/L (137-145)
--- NOTE | 2021-11-27 04:15 | ED.GENADULT ---
HPI - General Adult General Chief complaint: Back Pain/Injury Stated complaint: back, hip and leg pain Time Seen by Provider: 11/27/21 02:54 History of Present Illness HPI narrative: Patient is a 36-year-old gentleman who presents emerged from chief complaint of right flank pain and right sciatic area pain. The patient states pain began this evening states that sharp radiates down his right leg patient denies any bowel or bladder dysfunction denies foot drop denies paresthesias. Patient states the pain is a sharp type pain worse with movement. Related Data Home Medications Medication Instructions Recorded Confirmed Basaglar KwikPen U-100 Insulin 30 unit SUBCUT DAILY 09/17/19 05/23/21 albuterol sulfate 2.5 mg INHALATION Q6H PRN 09/17/19 05/23/21 albuterol sulfate [Ventolin HFA] 18 inh INHALATION QID PRN 09/17/19 05/23/21 atorvastatin [Lipitor] 40 mg PO DAILY 09/17/19 05/23/21 gabapentin 100 mg PO DAILY PRN 09/17/19 05/23/21 gabapentin [Neurontin] 300 mg PO HS PRN 09/17/19 05/23/21 insulin lispro [Humalog KwikPen 10 - 16 unit SUBCUT TIDWM 09/17/19 05/23/21 Insulin] montelukast [Singulair] 10 mg PO HS 09/17/19 05/23/21 ofloxacin [Ocuflox] 1 - 2 drp OPHTHALMIC (EYE) BID PRN 09/17/19 05/23/21 tacrolimus [Prograf] 0.5 mg PO DAILY 09/17/19 05/23/21 sodium chloride 0.65 % nasal spray 2 spray NASAL QID PRN 10/06/19 05/23/21 aerosol Allergies Allergy/AdvReac Type Severity Reaction Status Date / Time adhesive Allergy Unknown Hives Verified 05/23/21 13:36 adhesive tape AdvReac Mild REDNESS Verified 05/23/21 13:36 AND IRRITATION Review of Systems Review of Systems: A 10 system review of systems was completed on the patient and is negative except for what is stated in the HPI. Nursing and ancillary documentation was reviewed. [facility] Past Medical History Medical History Acute exacerbation of chronic obstructive airways disease Acute myeloblastic leukemia, in remission Acute myeloid leukemia AML (acute myeloblastic leukemia) Anemia Anxiety Bilateral cataracts COPD (chronic obstructive pulmonary disease) Depression Diabetes 1.5, managed as type 2 DVT (deep venous thrombosis) Dysphagia Eczema Emphysema/COPD History of blood transfusion History of chemotherapy History of radiation therapy Hyperglycemia Hyperlipidemia Hypoxemic respiratory failure, chronic Left tibial fracture Liver failure MRSA (methicillin resistant staph aureus) culture positive On home O2 Peripheral neuropathy Peyronie's disease Pneumonia Pulmonary emboli Renal disease Renal failure Right middle lobe pulmonary infiltrate Tibia fracture Venous thromboembolism Surgical History Surgical History History of orthopedic surgery Left tibia liz placement History of stem cell transplant Family History Family History Mother Acute myocardial infarction Father COPD (chronic obstructive pulmonary disease) Diabetes mellitus Alcohol abuse Social History Social History Social History: Quit Smoking 09/29/2019 Smoking packs per day: 1 Smoking cigarettes per day: 20.0 Years smoked: 43 Smoking pack-years: 43.00 Smoking status: Current every day smoker Tobacco type: cigarettes Smoking end date: 09/29/19 Additional smoking assessment comments: has been trying to quit. Using ther patch but smoked a few cigreetes the Alcohol intake: never Substance use: never Additional living arrangements comments: He lives with his roommate in [place]. Gender identity (if verbalized by the patient): Male Spiritual care concerns: No Agree to blood products: Yes Exam Narrative: GENERAL: Well-appearing, well-nourished, and in no acute distress. HEAD: Normoceph
[2021-11-27 05:47] LABS: Add Urine Microscopic? YES; Appearance Urine Clear (Clear); Bilirubin Urine Negative (Negative); Blood Urine 1+ (Negative); Color Urine Straw (Yellow); Glucose Urine UA Negative (Negative); Ketones Urine 1+ mg/dL (Negative); Leukocyte Esterase Ur Negative LEU/UL (Negative); Mucus Urine Rare /lpf; Nitrate Urine Negative (Negative); Protein Urine Negative (Negative); Specific Grav Ur 1.012 (1.001-1.035); Urobilinogen Urine Negative mg/dL (<2.0); WBC Urine 0-3 /hpf
[2021-11-27 07:19] VITALS: BP 140/75; PULSE 84; RESP 18; O2SAT 97
== END 2021-11-27 07:19 | disposition home or self-care (01) ==
PROVIDERS: Emergency Provider Emergency Medicine; PCP Internal Medicine
DX: M54.31 Sciatica, right side (principal); C92.01 Acute myeloblastic leukemia, in remission; D64.9 Anemia, unspecified; J43.9 Emphysema, unspecified; E78.5 Hyperlipidemia, unspecified; J96.11 Chronic respiratory failure with hypoxia; E11.42 Type 2 diabetes mellitus with diabetic polyneuropathy; N19 Unspecified kidney failure; N48.6 Induration penis plastica; H26.9 Unspecified cataract; F17.210 Nicotine dependence, cigarettes, uncomplicated; Z79.4 Long term (current) use of insulin; Z92.21 Personal history of antineoplastic chemotherapy; Z92.3 Personal history of irradiation; Z86.14 Personal history of Methicillin resistant Staphylococcus aureus infection; Z99.81 Dependence on supplemental oxygen; Z87.01 Personal history of pneumonia (recurrent); Z86.711 Personal history of pulmonary embolism; Z94.84 Stem cells transplant status
CPT/HCPCS: 36415; 74176; 80053; 81001; 85025; 96374; 96375; 99284; A9270; J1885; J2405

== ENCOUNTER 2022-01-25 13:14 | Emergency (ER) | payer MEDICARE, MEDICAID, SELFPAY ==
--- NOTE | ~2022-01-25 | XR_ITS ---
EXAMINATION: XR hip RT min 2V EXAM DATE: 01/25/2022 13:43 INDICATION: Initial encounter following injury, with pain of the right hip. TECHNIQUE: Right hip frontal, 'frog leg' projections for interpretation. Comparison is made to prior examination from 11/14/2016. FINDINGS: Smooth right hip femoral head contour, no radiographic evidence of avascular necrosis. The re is mild primary osteoarthritis. There are no acute fractures or dislocations identified. There is no subcutaneous gas. The soft tissue is unremarkable. There are no radiopaque foreign bodies. IMPRESSION: Mild right hip osteoarthritis. Reviewed, dictated and finalized at location A. WRITER
--- NOTE | ~2022-01-25 | XR_ITS ---
EXAMINATION: XR lumbar spine 2-3V, XR sacrum coccyx min 2V EXAM DATE: 01/25/2022 13:43 INDICATION: Initial encounter following injury, with pain of the lumbosacral region. TECHNIQUE: Frontal and lateral projections of the lumbar spine. Frontal, inlet, lateral projections of the sacrum/coccyx.. There is no prior study for comparison. FINDINGS: No acute lumbosacral fracture identified. Lumbar vertebral body heights are maintained. Mi ld to moderate disc disease L4-S1, mild at the other thoracolumbar levels. Small Schmorl's nodes. Mil d to moderate lumbar facet arthropathy. Mild aortic arterial sclerosis. Small metallic foreign body r ight midabdomen, could be something ingested. IMPRESSION: Mild to moderate lumbar spondylosis. Reviewed, dictated and finalized at location A. CLERK IMPRESSION: Mild to moderate lumbar spondylosis.
[2022-01-25 13:17] VITALS: BP 96/72; PULSE 64; RESP 14; TEMP 36.2; O2SAT 97
--- NOTE | 2022-01-25 13:45 | ED.FALL ---
HPI - Fall General Chief Complaint: Fall Stated Complaint: Right hip pain Time Seen by Provider: 01/25/22 13:26 Source: patient Mode of arrival: ambulatory Limitations: no limitations History of Present Illness HPI Narrative: Patient is a 56-year-old male complaining of right hip and tailbone pain, 8 out of 10, dull, worse with palpation movement after he fell off trying to sit on a barstool at home. Patient denies any head, neck, chest, abdomen, back or any other extremity pain/injury. Patient denies any loss of consciousness. Patient denies any symptoms prior to the fall. Related Data Home Medications Medication Instructions Recorded Confirmed atorvastatin [Lipitor] 40 mg PO DAILY 09/17/19 01/02/22 insulin lispro [Humalog KwikPen 10 - 16 unit SUBCUT TIDWM 09/17/19 01/02/22 Insulin] montelukast [Singulair] 10 mg PO HS 09/17/19 01/02/22 ofloxacin [Ocuflox] 1 - 2 drp OPHTHALMIC (EYE) BID PRN 09/17/19 01/02/22 gabapentin 300 mg capsule 300 mg PO QID PRN cap 12/25/21 01/02/22 acyclovir 400 mg tablet 400 mg PO TID 01/01/22 01/02/22 cholecalciferol (vitamin D3) 50 2,000 unit PO DAILY cap 01/01/22 01/02/22 mcg (2,000 unit) capsule ergocalciferol (vitamin D2) 1,250 50,000 unit PO WEEKLY cap 01/01/22 01/02/22 mcg (50,000 unit) capsule furosemide 20 mg tablet 10 mg PO QAM PRN 01/01/22 01/02/22 furosemide 40 mg tablet 40 mg PO QAM PRN 01/01/22 01/02/22 insulin glargine 100 unit/mL (3 30 unit SUBCUT QPM ml 01/01/22 01/02/22 mL) subcutaneous pen mycophenolate mofetil 500 mg tablet 1,000 mg PO Q12H 01/01/22 01/02/22 omega 5-atx-kkp-fish oil 100 2 cap PO DAILY cap 01/01/22 01/02/22 mg-160 mg-1,000 mg capsule rivaroxaban 20 mg tablet 20 mg PO DAILY 01/01/22 01/02/22 tacrolimus 0.5 mg capsule, 0.5 mg PO .qod cap 01/01/22 01/02/22 immediate-release voriconazole 200 mg tablet 200 mg PO Q12H 01/01/22 01/02/22 Allergies Allergy/AdvReac Type Severity Reaction Status Date / Time adhesive Allergy Unknown Hives Verified 01/02/22 09:28 adhesive tape AdvReac Mild REDNESS Verified 01/02/22 09:28 AND IRRITATION Review of Systems Review of Systems: Per HPI All systems reviewed & are unremarkable except as noted in HPI and below Constitutional: Constitutional: Denies body ache(s), Denies chills, Denies excessive sweating, Denies fatigue, Denies fever(s), Denies headache(s), Denies lethargy, Denies malaise, Denies weakness and Denies weight loss Eyes: Eyes: Denies blurry vision, Denies change in vision and Denies loss of vision ENT: Denies dizziness, Denies ear discharge, Denies headache(s), Denies lip swelling, Denies epistaxis, Denies nasal congestion, Denies neck pain, Denies throat swelling and Denies tongue swelling Cardiovascular: Cardiovascular: Denies chest pain, Denies chest pain at rest, Denies chest pain with activity, Denies diaphoresis, Denies rapid heart rate, Denies edema, Denies irregular heart rhythm, Denies lightheadedness, Denies palpitations, Denies dyspnea and Denies dyspnea on exertion Respiratory: Respiratory: Denies chest congestion, Denies cough, Denies hemoptysis, Denies dyspnea and Denies dyspnea on exertion Gastrointestinal: Gastrointestinal: Denies abdominal pain, Denies melena, Denies hematochezia, Denies diarrhea, Denies nausea, Denies vomiting and Denies hematemesis Musculoskeletal: Musculoskeletal: Denies abnormal gait, Denies deformity, Denies joint swelling, Denies neck pain and Denies numbness Neurologic: Denies Abnormal speech present, Denies abnormal gait, Denies confusion, Denies dizziness, Denies headache(s), Denies focal weakness, Denies loss of vision, Denies numbness, Denies Other visual disturbances, Denies Sensory deficit (Neuro) and Denies weakness Psychiatric: Psychiatric: Denies confusion, Denies depression, Denies auditory hallucinations, Denies homicidal ideation and Denies suicidal ideation Endocrine: Endocrine: Denies cold intolerance, Denies excessive sweating, Denies fa
[2022-01-25] MEDS: KETOROLAC 30 MG/ML VIAL (*BKC) IM (16:02)
[2022-01-25] MEDS: HYDROcodone/acetaminophen (*CRX) 7.5-325 MG TABLET 1 TAB PO (16:03)
== END 2022-01-25 16:18 | disposition home or self-care (01) ==
PROVIDERS: Emergency Provider Emergency Medicine; PCP Internal Medicine
DX: S76.011A Strain of muscle, fascia and tendon of right hip, initial encounter (principal); S30.0XXA Contusion of lower back and pelvis, initial encounter; C92.01 Acute myeloblastic leukemia, in remission; E13.42 Other specified diabetes mellitus with diabetic polyneuropathy; J43.9 Emphysema, unspecified; E78.5 Hyperlipidemia, unspecified; N19 Unspecified kidney failure; Z92.3 Personal history of irradiation; Z92.21 Personal history of antineoplastic chemotherapy; Z98.42 Cataract extraction status, left eye; Z98.41 Cataract extraction status, right eye; Z86.14 Personal history of Methicillin resistant Staphylococcus aureus infection; Z99.81 Dependence on supplemental oxygen; Z86.718 Personal history of other venous thrombosis and embolism; Z87.01 Personal history of pneumonia (recurrent); Z86.711 Personal history of pulmonary embolism; Z79.4 Long term (current) use of insulin; Z94.84 Stem cells transplant status; Z87.891 Personal history of nicotine dependence; M16.11 Unilateral primary osteoarthritis, right hip; M47.816 Spondylosis without myelopathy or radiculopathy, lumbar region; W08.XXXA Fall from other furniture, initial encounter
CPT/HCPCS: 72100; 72220; 73502; 96372; 99284; A9270; J1885

== ENCOUNTER 2022-02-05 15:33 | Emergency (ER) | payer MEDICARE, MEDICAID, SELFPAY ==
[2022-02-05] VITALS (7 sets, daily range): BP systolic 86–103; BP diastolic 63–72; PULSE 66–167; RESP 16–19; TEMP 36.7; O2SAT 97–100
--- NOTE | ~2022-02-05 | XR_ITS ---
EXAMINATION: XR chest 1V portable INDICATION: Shortness of breath TECHNIQUE: Portable AP chest at 1625 hours COMPARISON: 08/31/2021 FINDINGS: The lungs are hyperinflated but free of acute opacities. There is no pleural effusion or pn eumothorax. The cardiomediastinal silhouette is normal. IMPRESSION: 1. Hyperinflation without acute cardiopulmonary abnormality. Reviewed, dictated and finalized at location B.
--- NOTE | 2022-02-05 15:59 | ECG_ITS ---
Measurements Intervals [place] Rate: 168 P: MS: 0 QRS: 84 QRSD: 91 T: 64 QT: 255 QTc: 427 Interpretive Statements SUPRAVENTRICULAR TACHYCARDIA MODERATE ST DEPRESSION [0.05+ mV ST DEPRESSION] ABNORMAL ECG COMPARED TO ECG 08/30/2021 21:40:20 SUPRAVENTRICULAR TACHYCARDIA NOW PRESENT ST (T WAVE) DEVIATION NOW PRESENT Electronically Signed On 02-06-2022 17:09:19 CDT by Mark Simmons M.D.
--- NOTE | 2022-02-05 16:16 | ECG_ITS ---
Measurements Intervals [place] Rate: 98 P: 84 MN: 138 QRS: 85 QRSD: 94 T: 78 QT: 308 QTc: 393 Interpretive Statements SINUS RHYTHM POOR R-WAVE PROGRESSION ABNORMAL ECG COMPARED TO ECG 02/05/2022 16:07:00 SINUS RHYTHM NOW PRESENT Electronically Signed On 02-06-2022 17:09:59 CDT by Mark Simmons M.D.
[2022-02-05] MEDS: ADENOSINE IV SOLN 6 MG/2 ML VIAL IV PUSH (16:20)
[2022-02-05 16:40] LABS: Basophils Absolute Auto 0.1 K/mm3 (0.0-0.1); Basophils Percent Auto 0.6 % (0.2-1.2); Eosinophils Absolute Auto 0.2 K/mm3 (0-0.3); Eosinophils Percent Auto 1.6 % (0-4.4); Hematocrit 39.2 % (42.0-52.0); Hemoglobin 13.4 g/dL (14.0-18.0); Immature Granulocyte Absolute 0.03 K/mm3 (0.00-0.031); Immature Granulocyte Percent A 0.3 % (0-0.5); Lymphocytes Absolute Auto 2.71 K/mm3 (0.9-3.2); Lymphocytes Percent Auto 27.8 % (18.3-44.2); Mean Corpuscular HGB Conc 34.2 g/dl (32-36); Mean Corpuscular Hemoglobin 35.1 pg (26-34); Mean Corpuscular Volume 102.6 fl (80-100); Mean Platelet Volume 10.2 fl (7.4-10.4); Monocytes Absolute Auto 0.7 K/mm3 (0.1-0.6); Monocytes Percent Auto 7.3 % (2.6-8.5); Neutrophils Absolute Auto 6.1 K/mm3 (1.3-6.7); Neutrophils Percent Auto 62.4 % (45.5-73.1); Platelet Count Result 291 k/mm3 (150-375); Red Blood Count 3.82 M/mm3 (4.6-6.20); Red Cell Distribution Width 13.7 % (11.5-14.5); White Blood Count 9.8 K/mm3 (4.5-10.0)
[2022-02-05 16:48] LABS: Alanine Aminotransferase 55 U/L (4-50); Alkaline Phosphatase 161 U/L (38-126); Anion Gap 6 mmol/L (8-16); Aspartate Amino Transferase 59 U/L (17-59); Bilirubin,Total 0.7 mg/dL (0.2-1.3); Blood Urea Nitrogen 13 mg/dL (9-20); Carbon Dioxide 25 mmol/L (22-30); Chloride 101 mmol/L (98-107); Estimated CRCL calculation 67 ml/min; Estimated Glomerular Filt Rate > 60; Glucose 146 mg/dL (65-110); Potassium 4.2 mmol/L (3.4-5.0); Sodium 132 mmol/L (137-145)
--- NOTE | 2022-02-05 18:23 | ED.GENADULT ---
HPI - General Adult General Chief complaint: Shortness of Breath/Dyspnea Stated complaint: dyspnea Time Seen by Provider: 02/05/22 17:22 Source: patient Mode of arrival: ambulatory Limitations: no limitations History of Present Illness HPI narrative: Patient is 56 years old white male presented to the ED with fast heartbeat started 4 AM, patient had numerous similar symptoms, patient not on any medication for that, patient on chronic 2 L of oxygen for COPD. Patient also on Xarelto for deep vein thrombosis history of diabetes, smoking, deep vein thrombosis. Patient denies any fever, chills,, vomiting, chest pain or shortness of breath Related Data Home Medications Medication Instructions Recorded Confirmed atorvastatin [Lipitor] 40 mg PO DAILY 09/17/19 01/02/22 insulin lispro [Humalog KwikPen 10 - 16 unit SUBCUT TIDWM 09/17/19 01/02/22 Insulin] montelukast [Singulair] 10 mg PO HS 09/17/19 01/02/22 ofloxacin [Ocuflox] 1 - 2 drp OPHTHALMIC (EYE) BID PRN 09/17/19 01/02/22 gabapentin 300 mg capsule 300 mg PO QID PRN cap 12/25/21 01/02/22 acyclovir 400 mg tablet 400 mg PO TID 01/01/22 01/02/22 cholecalciferol (vitamin D3) 50 2,000 unit PO DAILY cap 01/01/22 01/02/22 mcg (2,000 unit) capsule ergocalciferol (vitamin D2) 1,250 50,000 unit PO WEEKLY cap 01/01/22 01/02/22 mcg (50,000 unit) capsule furosemide 20 mg tablet 10 mg PO QAM PRN 01/01/22 01/02/22 furosemide 40 mg tablet 40 mg PO QAM PRN 01/01/22 01/02/22 insulin glargine 100 unit/mL (3 30 unit SUBCUT QPM ml 01/01/22 01/02/22 mL) subcutaneous pen mycophenolate mofetil 500 mg tablet 1,000 mg PO Q12H 01/01/22 01/02/22 omega 7-aum-wrf-fish oil 100 2 cap PO DAILY cap 01/01/22 01/02/22 mg-160 mg-1,000 mg capsule rivaroxaban 20 mg tablet 20 mg PO DAILY 01/01/22 01/02/22 tacrolimus 0.5 mg capsule, 0.5 mg PO .qod cap 01/01/22 01/02/22 immediate-release voriconazole 200 mg tablet 200 mg PO Q12H 01/01/22 01/02/22 Allergies Allergy/AdvReac Type Severity Reaction Status Date / Time adhesive Allergy Unknown Hives Verified 02/05/22 16:28 adhesive tape AdvReac Mild REDNESS Verified 02/05/22 16:28 AND IRRITATION Review of Systems Review of Systems: CONSTITUTIONAL: Denies fever, chills, or sweats. EYES: Denies visual changes, redness, or discharge. ENT: Denies rhinorrhea, congestion, sore throat, or otalgia. CARDIOVASCULAR: Denies chest pain, palpitations, or edema. RESPIRATORY: Denies cough or dyspnea. GASTROINTESTINAL: Denies abdominal pain, nausea, vomiting, or diarrhea. GENITOURINARY: Denies dysuria or hematuria. SKIN: Denies rash or itching. MUSCULOSKELETAL: Denies back pain, joint pain, or myalgia. NEUROLOGIC: Denies headache, numbness, or weakness. PSYCHIATRIC: Denies anxiety or depression. [facility] Past Medical History Medical History Acute exacerbation of chronic obstructive airways disease Acute myeloblastic leukemia, in remission Acute myeloid leukemia AML (acute myeloblastic leukemia) Anemia Anxiety Bilateral cataracts Surgery 06/2021 and 07/2021 COPD (chronic obstructive pulmonary disease) Depression Diabetes 1.5, managed as type 2 DVT (deep venous thrombosis) Dysphagia Eczema Emphysema/COPD History of blood transfusion History of chemotherapy History of radiation therapy Hyperglycemia Hyperlipidemia Hypoxemic respiratory failure, chronic Left tibial fracture Liver failure MRSA (methicillin resistant staph aureus) culture positive On home O2 Peripheral neuropathy Peyronie's disease Pneumonia Pulmonary emboli Renal disease Renal failure Right middle lobe pulmonary infiltrate Sciatica Tibia fracture Venous thromboembolism Surgical History Surgical History History of orthopedic surgery Left tibia liz placement History of stem cell transplant Family History Family History (Reviewed 01/25/22 @ 13:47 by Brady Anaya
[2022-02-05 19:44] LABS: Troponin I < 0.012 ng/mL (0.000-0.034)
== END 2022-02-05 20:12 | disposition home or self-care (01) ==
PROVIDERS: Emergency Medicine; Emergency Provider Emergency Medicine; PCP Internal Medicine
DX: I47.1 Supraventricular tachycardia (principal); J43.9 Emphysema, unspecified; J96.11 Chronic respiratory failure with hypoxia; C92.01 Acute myeloblastic leukemia, in remission; E13.42 Other specified diabetes mellitus with diabetic polyneuropathy; N19 Unspecified kidney failure; N48.6 Induration penis plastica; Z98.42 Cataract extraction status, left eye; Z98.41 Cataract extraction status, right eye; Z86.718 Personal history of other venous thrombosis and embolism; Z99.81 Dependence on supplemental oxygen; Z92.3 Personal history of irradiation; Z92.21 Personal history of antineoplastic chemotherapy; Z86.14 Personal history of Methicillin resistant Staphylococcus aureus infection; Z87.01 Personal history of pneumonia (recurrent); Z86.711 Personal history of pulmonary embolism; Z79.4 Long term (current) use of insulin; Z79.01 Long term (current) use of 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
CPT/HCPCS: 36415; 71045; 80053; 84484; 85025; 93005; 96374; 99284; J0153

== ENCOUNTER 2022-09-23 10:42 | Observation (INO) | payer MEDICARE, MEDICAID, SELFPAY ==
[2022-09-23] VITALS (10 sets, daily range): BP systolic 94–135; BP diastolic 58–99; PULSE 73–104; RESP 14–20; TEMP 36.6–36.8; O2SAT 94–100; BMI 19.3; BMI 19.5
--- NOTE | ~2022-09-23 | XR_ITS ---
XR chest 2V DATE: 09/23/2022 11:53 INDICATION: Shortness of breath. History of COPD. TECHNIQUE: AP and lateral views COMPARISON: 02/05/2022 portable AP chest 08/30/2021 2 view chest 2 view chest FINDINGS: There is bilateral hyperinflation and flattening the diaphragm, consistent with COPD. There is chronic middle lobe atelectasis and/or scarring, present on 08/30/2021 as well is 11/13/2019 . No pulmonary infiltrate or consolidation, pleural effusion or pulmonary vascular congestion or pneumo thorax is noted otherwise. Osteopenia Mild thoracic scoliosis. IMPRESSION: COPD Chronic middle lobe atelectasis and/or scarring Aortic atherosclerosis Osteopenia Reviewed, dictated and finalized at location A. [facility] LOCATION
--- NOTE | 2022-09-23 10:59 | ECG_ITS ---
Measurements Intervals [place] Rate: 103 P: 87 LA: 125 QRS: 129 QRSD: 94 T: 77 QT: 345 QTc: 453 Interpretive Statements SINUS TACHYCARDIA ATRIAL PREMATURE COMPLEX RIGHT AXIS DEVIATION RIGHT ATRIAL ENLARGEMENT POOR R WAVE PROGRESSION, ANTERIOR LEADS BASELINE ARTIFACT- I, AVL ABNORMAL ECG COMPARED TO ECG 02/05/2022 16:21:05 SINUS TACHYCARDIA NOW PRESENT Electronically Signed On 09-23-2022 13:59:51 EQUIPMENT WORKER by Cal Carranza D.O.
[2022-09-23 11:18] LABS: Basophils Percent Auto 0.3 % (0.2-1.2); Eosinophils Absolute Auto 0.6 K/mm3 (0-0.3); Eosinophils Percent Auto 4.7 % (0-4.4); Hematocrit 43.3 % (42.0-52.0); Hemoglobin 14.9 g/dL (14.0-18.0); Immature Granulocyte Absolute 0.06 K/mm3 (0.00-0.031); Immature Granulocyte Percent A 0.5 % (0-0.5); Lymphocytes Absolute Auto 0.82 K/mm3 (0.9-3.2); Mean Corpuscular HGB Conc 34.4 g/dl (32-36); Mean Corpuscular Hemoglobin 35.4 pg (26-34); Mean Corpuscular Volume 102.9 fl (80-100); Mean Platelet Volume 9.7 fl (7.4-10.4); Monocytes Absolute Auto 0.5 K/mm3 (0.1-0.6); Monocytes Percent Auto 4.5 % (2.6-8.5); Neutrophils Absolute Auto 9.7 K/mm3 (1.3-6.7); Nucleated Red Blood Cells Perc 0.2 % (0.0-0.2); Platelet Count Result 244 k/mm3 (150-375); Red Blood Count 4.21 M/mm3 (4.6-6.20); Red Cell Distribution Width 13.2 % (11.5-14.5); White Blood Count 11.7 K/mm3 (4.5-10.0)
[2022-09-23 11:36] LABS: Alanine Aminotransferase 61 U/L (6-50); Albumin Level 4.5 g/dL (3.5-5.1); Alkaline Phosphatase 256 U/L (38-126); Anion Gap 19 mmol/L (8-16); Aspartate Amino Transferase 96 U/L (17-59); Bilirubin,Total 0.7 mg/dL (0.2-1.3); Blood Urea Nitrogen 33 mg/dL (9-20); Calcium 8.2 mg/dL (8.4-10.2); Carbon Dioxide 22 mmol/L (22-30); Chloride 93 mmol/L (98-107); Estimated CRCL calculation 60 ml/min; Estimated Glomerular Filt Rate > 60; Glucose 150 mg/dL (65-110); Potassium 3.7 mmol/L (3.4-5.0); Sodium 134 mmol/L (137-145)
--- NOTE | 2022-09-23 12:47 | ED.SOB ---
HPI - SOB/Dyspnea General Chief Complaint: Shortness of Breath/Dyspnea Stated Complaint: SOB Time Seen by Provider: 09/23/22 12:18 History of Present Illness HPI Narrative: Patient is a 56-year-old male with a history of COPD, diabetes, CHF, hyperlipidemia presenting with shortness of breath. Patient states that he has had a runny nose for the last several days. States that he has had worsening shortness of breath over the last week associated with chest tightness. He has tried his nebulizer several times with minimal relief. Reports a cough productive of clear sputum. He denies chest pain, lightheadedness, palpitations, fevers or chills, abdominal pain, nausea or vomiting, diarrhea, leg swelling. Related Data Home Medications Medication Instructions Recorded Confirmed atorvastatin 40 mg tablet (Lipitor) 40 mg PO DAILY 09/17/19 09/23/22 montelukast 10 mg tablet 10 mg PO HS 09/17/19 09/23/22 (Singulair) ofloxacin 0.3 % eye drops (Ocuflox) 1 - 2 drp ophthalmic (eye) BID PRN 09/17/19 09/23/22 SCRATCHED CORNEA pain gabapentin 300 mg capsule 300 mg PO QID PRN neuropathy pain 12/25/21 09/23/22 (Neurontin) acyclovir 400 mg tablet 400 mg PO TID 01/01/22 09/23/22 cholecalciferol (vitamin D3) 50 2,000 unit PO DAILY 01/01/22 09/23/22 mcg (2,000 unit) capsule ergocalciferol (vitamin D2) 1,250 50,000 unit PO WEEKLY 01/01/22 09/23/22 mcg (50,000 unit) capsule furosemide 20 mg tablet 10 mg PO QAM PRN Shortness Of 01/01/22 09/23/22 Breath mycophenolate mofetil 500 mg tablet 1,000 mg PO Q12H 01/01/22 09/23/22 omega 1-qme-zng-fish oil 100 2 cap PO DAILY 01/01/22 09/23/22 mg-160 mg-1,000 mg capsule (Fish Oil) rivaroxaban 20 mg tablet (Xarelto) 20 mg PO DAILY 01/01/22 09/23/22 tacrolimus 0.5 mg capsule, 0.5 mg PO .qod 01/01/22 09/23/22 immediate-release (Prograf) voriconazole 200 mg tablet 200 mg PO Q12H 01/01/22 09/23/22 Allergies Allergy/AdvReac Type Severity Reaction Status Date / Time adhesive Allergy Unknown Hives Verified 09/23/22 12:10 adhesive tape AdvReac Mild REDNESS Verified 09/23/22 12:10 AND IRRITATION Review of Systems Review of Systems: All systems reviewed & are unremarkable except as noted in HPI and below PMFSH Past Medical History Medical History (Updated 10/02/22 @ 12:14 by Bonnie Walker MD) Acute myeloid leukemia 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 Anemia Anxiety Chronic anticoagulation Chronic obstructive pulmonary disease Chronic respiratory failure with hypoxia On 5 liters nasal cannula at nighttime. Deep venous thrombosis Depression Eczema Emphysema/COPD Hyperglycemia Hyperlipidemia Immunocompromised patient Patient on anti rejection medications. Insulin dependent type 2 diabetes mellitus Peripheral neuropathy Peyronie's disease Positive nasal culture for methicillin resistant Staphylococcus aureus Pulmonary emboli Sciatica Surgical History Surgical History (Updated 09/23/22 @ 23:04 by Leyda Davila PA-C) History of bilateral cataract extraction History of orthopedic surgery Left tibia liz placement History of stem cell transplant Family History Family History Mother Acute myocardial infarction Father COPD (chronic obstructive pulmonary disease) Diabetes mellitus Alcohol abuse Social History Social History (Updated 09/23/22 @ 23:05 by Leyda Davila PA-C) Social History: Surrogate medical decision maker: Lissy Kaiser, friend/roommate. Code status: Full code. Smoking packs per day: 0.5 Smoking cigarettes per day: 10.0 Years smoked: 43 Smoking pack-years: 21.50 Smoking status: Current some day smoker Tobacco type: cigarettes Smoking end date: 08/07/22 Additional smoking assessment comments: on nicotine patches Alcohol intake: never Substance use: never Lack of Transportation: No L
[2022-09-23] MEDS: methylPREDNISolone SOD SUCC 125 MG VIAL IV PUSH (13:10)
[2022-09-23] MEDS: ALBUTEROL SULFATE NEB 2.5 MG/3 ML INH 10 MG INHALATION (13:12)
[2022-09-23] MEDS: IPRATROPIUM BR 0.02% INH SOLN 0.5 MG/2.5 ML VIAL INHALATION ×2 (13:13→21:34)
[2022-09-23 13:30] LABS: Troponin I 0.013 ng/mL (0.000-0.034)
[2022-09-23 13:52] LABS: Influenza A QL RT-PCR Negative (Negative); Influenza B QL RT-PCR Negative (Negative); SARS-CoV-2 RNA PCR Negative
[2022-09-23 14:39] LABS: Troponin I < 0.012 ng/mL (0.000-0.034)
--- NOTE | 2022-09-23 18:00 | PM.IMHP ---
H&P: HPI History of Present Illness Date/Time: 09/23/22 18:00 Chief Complaint: Shortness of breath. Narrative: This is a pleasant 56-year-old male smoker with COPD, diabetes, DVT/PE, and history of AML status post bone marrow transplant with chronic cyiql-rgeevt-dzre disease who presented to the emergency department from home for evaluation of shortness of breath. He has a chronic smoker's cough and dyspnea on exertion however over the last couple of days he has had an increasing cough productive of clear phlegm and worsening shortness of breath on lesser and lesser exertion. Last night he had chest tightness and felt as though he could not get in a deep breath. He did a continuous nebulizer and a 3rd nebulizer not long thereafter without much relief and he decided to come in today. Upon arrival he was given Solu-Medrol 125 milligrams IV push x1 and a nebulizer and he reports feeling a lot better. His wheezing has improved significantly any no longer has chest tightness. He still not moving a whole lot of air however and he is being admitted in this setting for further treatment. In addition to the cough and shortness of breath he has also had mild rhinorrhea. He denies fever, chills, sweats, exertional chest pain, pleuritic pain, palpitations, nausea, vomiting, and diarrhea. He has no known sick contacts. Review of Systems Review of Systems: Twelve systems were reviewed and are negative except for as per HPI. 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 Anemia Anxiety Chronic anticoagulation Chronic obstructive pulmonary disease Chronic respiratory failure with hypoxia On 5 liters nasal cannula at nighttime. Deep venous thrombosis Depression Eczema Emphysema/COPD Hyperglycemia Hyperlipidemia Immunocompromised patient Patient on anti rejection medications. Insulin dependent type 2 diabetes mellitus Peripheral neuropathy Peyronie's disease Positive nasal culture for methicillin resistant Staphylococcus aureus Pulmonary emboli Sciatica Surgical History Surgical History (Updated 09/23/22 @ 23:04 by Leyda Davila PA-C) History of bilateral cataract extraction History of orthopedic surgery Left tibia liz placement History of stem cell transplant Family History Family History Mother Acute myocardial infarction Father COPD (chronic obstructive pulmonary disease) Diabetes mellitus Alcohol abuse Social History Social History (Updated 09/23/22 @ 23:05 by Leyda Davila PA-C) Social History: Surrogate medical decision maker: Lissy Job, friend/roommate. Code status: Full code. Smoking packs per day: 0.5 Smoking cigarettes per day: 10.0 Years smoked: 43 Smoking pack-years: 21.50 Smoking status: Current some day smoker Tobacco type: cigarettes Smoking end date: 08/07/22 Additional smoking assessment comments: on nicotine patches Alcohol intake: never Substance use: never Has the Lack of Transportation Kept You From Medical Appointments or From Getting Medications?: No Within the Past 12 Months, Were You Worried Whether Your Food Would Run Out Before You Got Money to Buy More?: Never True What is Your Housing Situation Today?: I Have Housing Are You Worried That in the Next 2 Months, You May Not Have Your Own Housing to Live In?: No Do You Have Trouble Paying Your Heating Or Electricity Bill?: No Do You Have Trouble Paying For Medicines?: No Are You Currently Unemployed and Looking for Work?: No Highest Level of Education Completed: Decline to Answer Do You Have Trouble With Childcare or the Care of a Family Member?: No Additional living arrangements comments: He lives with his roommate in [place]. Spiritual care concerns: No Agree t
[2022-09-23 21:29] LABS: Glucose Point of Care 367 mg/dl (65-105)
[2022-09-23] MEDS: ALBUTEROL SULFATE NEB 2.5 MG/3 ML INH 5 MG INHALATION (21:34)
[2022-09-24] VITALS (10 sets, daily range): BP systolic 125–134; BP diastolic 71–79; PULSE 66–88; RESP 16–20; TEMP 36.5–36.7; O2SAT 93–96
[2022-09-24] MEDS: ALBUTEROL SULFATE NEB 2.5 MG/3 ML INH 5 MG INHALATION ×3 (02:53→21:07)
[2022-09-24] MEDS: IPRATROPIUM BR 0.02% INH SOLN 0.5 MG/2.5 ML VIAL INHALATION ×2 (02:53→21:07)
[2022-09-24] MEDS: GABAPENTIN 300 MG CAPSULE PO ×2 (03:05→21:31)
[2022-09-24 06:29] LABS: Hematocrit 38.8 % (42.0-52.0); Hemoglobin 13.4 g/dL (14.0-18.0); Mean Corpuscular HGB Conc 34.5 g/dl (32-36); Mean Corpuscular Hemoglobin 35.1 pg (26-34); Mean Corpuscular Volume 101.6 fl (80-100); Mean Platelet Volume 10.4 fl (7.4-10.4); Platelet Count Result 223 k/mm3 (150-375); Red Blood Count 3.82 M/mm3 (4.6-6.20); Red Cell Distribution Width 13.1 % (11.5-14.5); White Blood Count 5.9 K/mm3 (4.5-10.0)
[2022-09-24 06:37] LABS: Alanine Aminotransferase 47 U/L (6-50); Alkaline Phosphatase 207 U/L (38-126); Anion Gap 15 mmol/L (8-16); Aspartate Amino Transferase 57 U/L (17-59); Bilirubin,Total 0.4 mg/dL (0.2-1.3); Blood Urea Nitrogen 34 mg/dL (9-20); Calcium 8.2 mg/dL (8.4-10.2); Carbon Dioxide 26 mmol/L (22-30); Chloride 96 mmol/L (98-107); Estimated CRCL calculation 82 ml/min; Estimated Glomerular Filt Rate > 60; Glucose 286 mg/dL (65-110); Magnesium 2.2 mg/dL (1.6-2.3); Potassium 3.6 mmol/L (3.4-5.0); Sodium 137 mmol/L (137-145)
[2022-09-24 08:25] LABS: Hemoglobin A1C 7.2 % (<5.7)
[2022-09-24 08:39] LABS: Glucose Point of Care 223 mg/dl (65-105)
[2022-09-24] MEDS: mycophenolate mofetiL 250 MG CAPSULE 1000 MG PO ×2 (09:06→20:34)
[2022-09-24] MEDS: CHOLECALCIFEROL 1,000 UNITS TABLET 2000 UNITS PO (09:06)
[2022-09-24] MEDS: predniSONE 20 MG TABLET 40 MG PO (09:06)
[2022-09-24] MEDS: OMEGA 3 POLYUNSAT FATTY ACIDS 1 GM CAP 2 GM PO (09:06)
[2022-09-24] MEDS: AMOXICILLIN/CLAVULANATE K 875-125 MG TAB 1 TABLET PO ×2 (09:06→20:34)
[2022-09-24] MEDS: RIVAROXABAN 20 MG TABLET PO (09:06)
[2022-09-24] MEDS: TACROLIMUS 0.5 MG CAPSULE PO (09:06)
[2022-09-24] MEDS: INSULIN ASPART (*BKC) 100 UNITS/ML SUB-Q ×3 (09:08→17:09)
[2022-09-24 11:49] LABS: Glucose Point of Care 373 mg/dl (65-105)
[2022-09-24] MEDS: FLUTICASONE/UMECLIDIN/VILANTER 100-62.5-25 MCG ELLIPTA 1 PUFF INHALATION (13:53)
--- NOTE | 2022-09-24 14:57 | PM.IMPN ---
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 influenza and sars covid negative. received bronchodilators and steroid. improved. # acute copd exaceberbation: Steroid bronchodilators antibiotics as ordered # acute hypoxic respiratory failure on 4 L nasal cannula continued improve. Try to taper off oxygen. # history of bone marrow transplant with resultant chronic vwjas-abhuou-tmqu disease on immunosuppressant which is continued # insulin-dependent type 2 diabetes mellitus: Continue home medication adjust doses required on SSI . A1c at 7.2 # hyperlipidemia # hypertension # peripheral neuropathy # history of PE / DVT on rivaroxaban it is continue # long-term anticoagulant use # anxiety depression # chronic respiratory failure with hypoxia on 5 L nasal cannula at nighttime # DVT prophylaxis on Xarelto # code status full code Subjective Date/time seen: 09/24/22 14:57 Interval history: This is a pleasant 56-year-old male smoker with COPD, diabetes, DVT/PE, and history of AML status post bone marrow transplant with chronic ameqm-nmuthc-dpak disease who presented to the emergency department from home for evaluation of shortness of breath. He has a chronic smoker's cough and dyspnea on exertion however over the last couple of days he has had an increasing cough productive of clear phlegm and worsening shortness of breath on lesser and lesser exertion. Last night he had chest tightness and felt as though he could not get in a deep breath. He did a continuous nebulizer and a 3rd nebulizer not long thereafter without much relief and he decided to come in today. Upon arrival he was given Solu-Medrol 125 milligrams IV push x1 and a nebulizer and he reports feeling a lot better. His wheezing has improved significantly any no longer has chest tightness. He still not moving a whole lot of air however and he is being admitted in this setting for further treatment. In addition to the cough and shortness of breath he has also had mild rhinorrhea.? He denies fever, chills, sweats, exertional chest pain, pleuritic pain, palpitations, nausea, vomiting, and diarrhea. He has no known sick contacts. 09/24/2022: doing well. breathig is better. mild cough. denies any wheezing or sob. up and about. remains on oxygen. Review of Systems Review of Systems: All systems reviewed & are unremarkable except as noted in HPI and below Exam Narrative: General: Chronically ill-appearing gentleman sitting up in bed in no distress. HEENT: PERRL, EOMI. Sclera anicteric. Oral mucosa moist. Edentulous. Neck: Supple. No lymphadenopathy or JVD. Respiratory: Respirations are nonlabored and he is able to speak in full sentences. Lung sounds are diminished throughout without any wheezes today. Cardiovascular: Regular rate and rhythm with S1-S2. Gastrointestinal: Abdomen is soft, nontender, and nondistended with positive bowel sounds. Skin: Warm and dry. Faint hyperpigmentation of the lower legs bilaterally. Extremities: No cyanosis, clubbing, or edema. Radial and pedal pulses intact. Negative Karina sign bilaterally. Neurological: Alert. Cranial nerves 2-12 are grossly intact. No gross focal deficits to casual conversation. Psychiatric: Pleasant and coopera
--- NOTE | 2022-09-24 16:04 | PCRCNOTE ---
Home O2 on hold. Due to O2 requirements RN wants to titrate O2 before doing Home O2 eval.
[2022-09-24 17:04] LABS: Glucose Point of Care 314 mg/dl (65-105)
[2022-09-24 20:23] LABS: Glucose Point of Care 256 mg/dl (65-105)
[2022-09-24] MEDS: MONTELUKAST SODIUM 10 MG TABLET PO (20:34)
[2022-09-25] VITALS (10 sets, daily range): BP systolic 134; BP diastolic 79; PULSE 82–115; RESP 16–20; TEMP 36.4; O2SAT 85–95
[2022-09-25] MEDS: IPRATROPIUM BR 0.02% INH SOLN 0.5 MG/2.5 ML VIAL INHALATION ×2 (03:30→08:55)
[2022-09-25] MEDS: ALBUTEROL SULFATE NEB 2.5 MG/3 ML INH 5 MG INHALATION ×2 (03:30→08:55)
[2022-09-25 06:13] LABS: Basophils Percent Auto 0.3 % (0.2-1.2); Hematocrit 42.8 % (42.0-52.0); Hemoglobin 14.6 g/dL (14.0-18.0); Immature Granulocyte Absolute 0.25 K/mm3 (0.00-0.031); Immature Granulocyte Percent A 1.7 % (0-0.5); Lymphocytes Absolute Auto 1.85 K/mm3 (0.9-3.2); Lymphocytes Percent Auto 12.9 % (18.3-44.2); Mean Corpuscular HGB Conc 34.1 g/dl (32-36); Mean Corpuscular Hemoglobin 35.4 pg (26-34); Mean Corpuscular Volume 103.6 fl (80-100); Mean Platelet Volume 10.6 fl (7.4-10.4); Monocytes Absolute Auto 1.2 K/mm3 (0.1-0.6); Neutrophils Percent Auto 77.1 % (45.5-73.1); Nucleated Red Blood Cells Perc 0.3 % (0.0-0.2); Platelet Count Result 242 k/mm3 (150-375); Red Blood Count 4.13 M/mm3 (4.6-6.20); Red Cell Distribution Width 13.5 % (11.5-14.5); White Blood Count 14.3 K/mm3 (4.5-10.0)
[2022-09-25 06:27] LABS: Alanine Aminotransferase 39 U/L (6-50); Albumin Level 4.4 g/dL (3.5-5.1); Alkaline Phosphatase 210 U/L (38-126); Anion Gap 14 mmol/L (8-16); Aspartate Amino Transferase 44 U/L (17-59); Bilirubin,Total 0.6 mg/dL (0.2-1.3); Blood Urea Nitrogen 27 mg/dL (9-20); Calcium 8.7 mg/dL (8.4-10.2); Carbon Dioxide 30 mmol/L (22-30); Chloride 96 mmol/L (98-107); Estimated CRCL calculation 94 ml/min; Estimated Glomerular Filt Rate > 60; Glucose 309 mg/dL (65-110); Magnesium 2.2 mg/dL (1.6-2.3); Potassium 3.7 mmol/L (3.4-5.0); Sodium 140 mmol/L (137-145)
[2022-09-25 07:56] LABS: Glucose Point of Care 295 mg/dl (65-105)
[2022-09-25] MEDS: FLUTICASONE/UMECLIDIN/VILANTER 100-62.5-25 MCG ELLIPTA 1 PUFF INHALATION (08:56)
[2022-09-25] MEDS: predniSONE 20 MG TABLET 40 MG PO (09:31)
[2022-09-25] MEDS: AMOXICILLIN/CLAVULANATE K 875-125 MG TAB 1 TABLET PO (09:32)
[2022-09-25] MEDS: OMEGA 3 POLYUNSAT FATTY ACIDS 1 GM CAP 2 GM PO (09:32)
[2022-09-25] MEDS: RIVAROXABAN 20 MG TABLET PO (09:32)
[2022-09-25] MEDS: mycophenolate mofetiL 250 MG CAPSULE 1000 MG PO (09:32)
[2022-09-25] MEDS: CHOLECALCIFEROL 1,000 UNITS TABLET 2000 UNITS PO (09:32)
--- NOTE | 2022-09-25 10:50 | PM.DS ---
DS: Admitting Diagnosis Discharge Date 09/25/2022 Admitting Diagnosis shortness of breath DS: Summary Hospital Course Reason for hospitalization: This is a pleasant 56-year-old male smoker with COPD, diabetes, DVT/PE, and history of AML status post bone marrow transplant with chronic koqqz-folvyn-phlv disease who presented to the emergency department from home for evaluation of shortness of breath. He has a chronic smoker's cough and dyspnea on exertion however over the last couple of days he has had an increasing cough productive of clear phlegm and worsening shortness of breath on lesser and lesser exertion. Last night he had chest tightness and felt as though he could not get in a deep breath. He did a continuous nebulizer and a 3rd nebulizer not long thereafter without much relief and he decided to come in today. Upon arrival he was given Solu-Medrol 125 milligrams IV push x1 and a nebulizer and he reports feeling a lot better. His wheezing has improved significantly any no longer has chest tightness. He still not moving a whole lot of air however and he is being admitted in this setting for further treatment. In addition to the cough and shortness of breath he has also had mild rhinorrhea.? He denies fever, chills, sweats, exertional chest pain, pleuritic pain, palpitations, nausea, vomiting, and diarrhea. He has no known sick contacts. Hospital Course: # sob: cxr with chorinc findings no pna. influenza and sars covid negative. received bronchodilators and steroid. improved.sterodi tpaer at discharge. he had pseudomonas in the past. will send on levuin for copd exacerbation and possible resp infection. # acute copd exaceberbation: Steroid bronchodilators antibiotics as ordered. improved. still required oxygen at discharge. home oxygen eval was done at discharge. he rquired 2 l with activity. he already wears 5 l at night. # acute hypoxic respiratory failure on 4 L nasal cannula continued improve.? Try to taper off oxygen.? # history of bone marrow transplant with resultant chronic efcrt-dbjrww-bjoz disease on immunosuppressant which is continued # insulin-dependent type 2 diabetes mellitus:? Continue home medication adjust doses required on SSI .? A1c at 7.2 # hyperlipidemia # hypertension # peripheral neuropathy # history of PE / DVT on rivaroxaban it is continue # long-term anticoagulant use # anxiety depression # chronic respiratory failure with hypoxia on 5 L nasal cannula at nighttime # DVT prophylaxis on Xarelto # code status full code Time Spent with Patient Time attestation: Total time spent providing and/or coordinating discharge services:45 mins DS: Data Data Completed and Pending Labs on day of discharge: Labs from last 24 hours 09/25/22 09/25/22 09/25/22 07:37 05:32 05:32 WBC 14.3 H RBC 4.13 L Hgb 14.6 Hct 42.8 MCV 103.6 H MCH 35.4 H MCHC 34.1 RDW 13.5 Plt Count 242 MPV 10.6 H Immature Gran % (Auto) 1.7 H Neut % (Auto) 77.1 H Lymph % (Auto) 12.9 L Harris % (Auto) 8.0 Eos % (Auto) 0.0 Baso % (Auto) 0.3 Lymph # (Auto) 1.85 Harris # (Auto) 1.2 H Eos # (Auto) 0.0 Baso # (Auto) 0.0 Abs Immat Gran (auto) 0.25 H Absolute Neuts (auto) 11.0 H Absolute Nucleated RBC 0.0 Nucleated RBC % 0.3 H Sodium 140 Potassium 3.7 Chloride 96 L Carbon Dioxide 30 Anion Gap 14 BUN 27 H Creatinine 0.70 Estim Creat Clear Calc 94 Estimated GFR > 60 Glucose 309 H POC Capillary Glucose 295 H Calcium 8.7 Magnesium 2.2 Total Bilirubin 0.6 AST 44 ALT 39 Alkaline Phosphatase 210 H Total Protein 8.0 Albumin 4.4 09/24/22 09/24/22 09/24/22 20:21 16:53 11:34 WBC RBC Hgb Hct MCV MCH MCHC RDW Plt Count MPV Immature Gran % (Auto) Neut % (Auto) Lymph % (Auto) Harris % (Auto) Eos % (Auto) Baso % (Auto) Lymph # (Auto) Harris # (Auto) Eos # (Auto)
[2022-09-25 11:55] LABS: Glucose Point of Care 370 mg/dl (65-105)
[2022-09-25] MEDS: INSULIN ASPART (*BKC) 100 UNITS/ML SUB-Q (12:23)
--- NOTE | 2022-09-25 12:45 | HOMEO2EVAL ---
Evaluation was performed at [facility] Home Oxygen Evaluation RC: Home Oxygen (O2) Evaluation Start: 09/24/22 14:57 Freq: ONCE Status: Active Protocol: RPE Activity Type Activity Date Activity User E-sign Co-sign Detail Recorded Client Recorded Date Recorded By Document 09/25/22 12:30 FELIPE [email or web address] 09/25/22 12:45 FELIPE Document 09/25/22 12:33 FELIPE [email or web address] 09/25/22 12:45 FELIPE Document 09/25/22 12:34 FELIPE [email or web address] 09/25/22 12:45 FELIPE Document 09/25/22 12:35 FELIPE [email or web address] 09/25/22 12:45 FELIPE Document 09/25/22 12:45 FELIPE [email or web address] 09/25/22 12:45 FELIPE 09/25/22 09/25/22 09/25/22 12:30 12:33 12:34 Home O2 Evaluation [Oxygen] -Test Phase Resting Exercise Exercise -Oxygen Delivery Room Air Room Air Nasal Cannula -Oxygen Flow Rate (L/min) 1 [Pulse Oximetry] -Pulse Oximetry (90-100 %) 90 85 L 87 L [Pulse Rate] -Pulse Rate (60-100 beats/min) 88 115 H [Comments] -Home Oxygen Evaluation Comments [Charges] -Treatment Charges O2 Evaluation - Inpatient 09/25/22 09/25/22 12:35 12:45 Home O2 Evaluation [Oxygen] -Test Phase Exercise Resting -Oxygen Delivery Nasal Cannula Room Air -Oxygen Flow Rate (L/min) 2 [Pulse Oximetry] -Pulse Oximetry (90-100 %) 90 92 [Pulse Rate] -Pulse Rate (60-100 beats/min) 110 H 93 [Comments] -Home Oxygen Evaluation Comments PT REQUIRES 2 L WITH ACTIVITY [Charges] -Treatment Charges
--- NOTE | 2022-09-25 12:46 | PCRCNOTE ---
HOME O2 EVAL DONE, PT HAS HOME O2 WITH [facility]. REQUIRES 2 L WITH ACTIVITY. ALSO WEARS 5 L WITH SLEEP. PT HAS PORTABLE O2 TANKS AND IS READY FOR DISCHARGE
== END 2022-09-25 15:09 | disposition home or self-care (01) ==
LOC: ANHED 12:18 → ANH3MEDSUR 19:39
PROVIDERS: Emergency Medicine; Physician Assistant; Admitting Provider Internal Medicine; Emergency Provider Emergency Medicine; PCP Internal Medicine; Visit Provider Internal Medicine
DX: J44.1 Chronic obstructive pulmonary disease with (acute) exacerbation (principal); E11.9 Type 2 diabetes mellitus without complications; I50.9 Heart failure, unspecified; E78.5 Hyperlipidemia, unspecified; C92.01 Acute myeloblastic leukemia, in remission; F41.9 Anxiety disorder, unspecified; F32.A Depression, unspecified; J96.11 Chronic respiratory failure with hypoxia; J98.11 Atelectasis; Z20.822 Contact with and (suspected) exposure to COVID-19; I70.0 Atherosclerosis of aorta; D84.9 Immunodeficiency, unspecified; Z99.81 Dependence on supplemental oxygen; R94.31 Abnormal electrocardiogram [ECG] [EKG]; M85.80 Other specified disorders of bone density and structure, unspecified site; Z87.891 Personal history of nicotine dependence; Z86.718 Personal history of other venous thrombosis and embolism; Z92.21 Personal history of antineoplastic chemotherapy; Z92.3 Personal history of irradiation; Z79.4 Long term (current) use of insulin; Z79.899 Other long term (current) drug therapy; Z82.49 Family history of ischemic heart disease and other diseases of the circulatory system; Z83.6 Family history of other diseases of the respiratory system
CPT/HCPCS: 36415; 71046; 80053; 82948; 83036; 83735; 84484; 85025; 85027; 87636; 93005; 94618; 94640; 96374; 97161; 97165; 99285; A9270; G0378; J1815; J2930; J7512; J7517

== ENCOUNTER 2022-10-16 10:20 | Emergency (ER) | payer MEDICARE, MEDICAID, SELFPAY ==
--- NOTE | ~2022-10-16 | XR_ITS ---
XR chest 1V 10/16/2022 13:00 Indication: Dyspnea. COPD. Procedure: PA and lateral views of the chest Comparison: Comparison to multiple prior studies sequentially, with oldest reviewed study dated 08/18. Findings: There is emphysema. Heart size normal. No focal air space disease, pulmonary edema, pleural effusion or suspected pneumothorax. There are developing nodular densities in the lung bases. Impression: 1: No acute cardiopulmonary disease. 2: Developing nodular densities lower lung bases bilaterally. Recommend further evaluation with CT o n nonemergent basis. Reviewed, dictated and finalized at location A. BED WORKER Impression: 1: No acute cardiopulmonary disease. 2: Developing nodular densities lower lung bases bilaterally. Recommend furthe r evaluation with CT on nonemergent basis.
[2022-10-16 10:22] VITALS: BP 134/108; PULSE 87; RESP 20; TEMP 36.1; O2SAT 94
[2022-10-16 12:35] VITALS: BP 151/87; PULSE 80; TEMP 36.3; O2SAT 96
--- NOTE | 2022-10-16 12:43 | ECG_ITS ---
Measurements Intervals [place] Rate: 80 P: 89 MA: 120 QRS: 98 QRSD: 98 T: 81 QT: 384 QTc: 445 Interpretive Statements SINUS RHYTHM RIGHT AXIS DEVIATION BORDERLINE R WAVE PROGRESSION, ANTERIOR LEADS BASELINE ARTIFACT- I, II, III, AVR, AVL, AVF, V1-V6 BORDERLINE ECG COMPARED TO ECG 09/23/2022 11:03:14 SINUS RHYTHM NOW PRESENT Electronically Signed On 10-16-2022 14:09:26 NURSE ASSISTANT by Cal Carranza D.O.
[2022-10-16 12:46] LABS: Glucose Point of Care 117 mg/dl (65-105)
[2022-10-16 13:57] LABS: Basophils Percent Auto 0.3 % (0.2-1.2); Eosinophils Absolute Auto 0.2 K/mm3 (0-0.3); Eosinophils Percent Auto 2.6 % (0-4.4); Hematocrit 41.7 % (42.0-52.0); Immature Granulocyte Absolute 0.03 K/mm3 (0.00-0.031); Immature Granulocyte Percent A 0.3 % (0-0.5); Lymphocytes Absolute Auto 4.48 K/mm3 (0.9-3.2); Lymphocytes Percent Auto 48.6 % (18.3-44.2); Mean Corpuscular HGB Conc 33.6 g/dl (32-36); Mean Corpuscular Hemoglobin 35.4 pg (26-34); Mean Corpuscular Volume 105.6 fl (80-100); Mean Platelet Volume 10.5 fl (7.4-10.4); Monocytes Absolute Auto 0.7 K/mm3 (0.1-0.6); Monocytes Percent Auto 7.2 % (2.6-8.5); Neutrophils Absolute Auto 3.8 K/mm3 (1.3-6.7); Platelet Count Result 300 k/mm3 (150-375); Red Blood Count 3.95 M/mm3 (4.6-6.20); Red Cell Distribution Width 13.7 % (11.5-14.5); White Blood Count 9.2 K/mm3 (4.5-10.0)
[2022-10-16] MEDS: ALBUTEROL SULFATE NEB 2.5 MG/3 ML INH 15 MG INHALATION (14:04)
[2022-10-16] MEDS: IPRATROPIUM BR 0.02% INH SOLN 0.5 MG/2.5 ML VIAL 1.5 MG INHALATION (14:05)
--- NOTE | 2022-10-16 14:06 | ED.GENADULT ---
HPI - General Adult General Chief complaint: Shortness of Breath/Dyspnea Stated complaint: COPD Exacerbation again Time Seen by Provider: 10/16/22 13:36 History of Present Illness HPI narrative: This is a 56-year-old male with history of COPD On 5 L of oxygen at nightpresenting ED with difficulty breathing. Patient was DC from the hospital last week on a short course of steroids. He has been doing well since then however 4-5 days ago he noticed that his breathing was getting worse. He has had some increased sputum production and sputum has gone from clear to yellow. Patient denies fever, chills, chest pain, abdominal pain, nausea vomiting or diarrhea. patient denies sick contacts at home. Related Data Home Medications Medication Instructions Recorded Confirmed atorvastatin 40 mg tablet (Lipitor) 40 mg PO DAILY 09/17/19 09/23/22 montelukast 10 mg tablet 10 mg PO HS 09/17/19 09/23/22 (Singulair) ofloxacin 0.3 % eye drops (Ocuflox) 1 - 2 drp ophthalmic (eye) BID PRN 09/17/19 09/23/22 SCRATCHED CORNEA pain gabapentin 300 mg capsule 300 mg PO QID PRN neuropathy pain 12/25/21 09/23/22 (Neurontin) acyclovir 400 mg tablet 400 mg PO TID 01/01/22 09/23/22 cholecalciferol (vitamin D3) 50 2,000 unit PO DAILY 01/01/22 09/23/22 mcg (2,000 unit) capsule ergocalciferol (vitamin D2) 1,250 50,000 unit PO WEEKLY 01/01/22 09/23/22 mcg (50,000 unit) capsule furosemide 20 mg tablet 10 mg PO QAM PRN Shortness Of 01/01/22 09/23/22 Breath mycophenolate mofetil 500 mg tablet 1,000 mg PO Q12H 01/01/22 09/23/22 omega 4-zkj-avo-fish oil 100 2 cap PO DAILY 01/01/22 09/23/22 mg-160 mg-1,000 mg capsule (Fish Oil) rivaroxaban 20 mg tablet (Xarelto) 20 mg PO DAILY 01/01/22 09/23/22 tacrolimus 0.5 mg capsule, 0.5 mg PO .qod 01/01/22 09/23/22 immediate-release (Prograf) voriconazole 200 mg tablet 200 mg PO Q12H 01/01/22 09/23/22 Allergies Allergy/AdvReac Type Severity Reaction Status Date / Time adhesive Allergy Unknown Hives Verified 09/23/22 12:10 adhesive tape AdvReac Mild REDNESS Verified 09/23/22 12:10 AND IRRITATION Review of Systems Review of Systems: CONSTITUTIONAL: Denies night sweats. EYES: No eye pain ENT: Denies rhinorrhea CARDIOVASCULAR: Denies palpitations RESPIRATORY: Denies hemoptysis GASTROINTESTINAL: Denies hematemesis GENITOURINARY: Denies hematuria. SKIN: Denies rash MUSCULOSKELETAL: Denies myalgia. NEUROLOGIC: Denies weakness. 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 Anemia Anxiety Chronic anticoagulation Chronic obstructive pulmonary disease Chronic respiratory failure with hypoxia On 5 liters nasal cannula at nighttime. Deep venous thrombosis Depression Eczema Emphysema/COPD Hyperglycemia Hyperlipidemia Immunocompromised patient Patient on anti rejection medications. Insulin dependent type 2 diabetes mellitus Peripheral neuropathy Peyronie's disease Positive nasal culture for methicillin resistant Staphylococcus aureus Pulmonary emboli Sciatica Surgical History Surgical History History of bilateral cataract extraction History of orthopedic surgery Left tibia liz placement History of stem cell transplant Family History Family History Mother Acute myocardial infarction Father COPD (chronic obstructive pulmonary disease) Diabetes mellitus Alcohol abuse Social History Social History Social History: Surrogate medical decision maker: Lissy Kaiser, friend/roommate. Code status: Full code. Smoking packs per day: 0.5 Smoking cigarettes per day: 10.0 Years smoked: 43 Smoking pack-years: 21.
[2022-10-16 14:10] VITALS: PULSE 83; RESP 19
[2022-10-16 14:18] LABS: Anion Gap 8 mmol/L (8-16); Blood Urea Nitrogen 16 mg/dL (9-20); Calcium 8.5 mg/dL (8.4-10.2); Carbon Dioxide 30 mmol/L (22-30); Chloride 103 mmol/L (98-107); Estimated CRCL calculation 86 ml/min; Estimated Glomerular Filt Rate > 60; Glucose 155 mg/dL (65-110); Platelet Estimate Adequate (Adequate); Potassium 4.8 mmol/L (3.4-5.0); Sodium 141 mmol/L (137-145); Target Cells 1+ (NORMAL)
[2022-10-16 14:19] LABS: Anisocytosis 1+ (NORMAL)
[2022-10-16 14:20] LABS: Schistocytes None Seen (NORMAL); Tear Drop Cells 1+ (NORMAL)
[2022-10-16] MEDS: methylPREDNISolone SOD SUCC 125 MG VIAL IV PUSH (14:23)
[2022-10-16] MEDS: MAGNESIUM SULF 2 GM/WATER 50ML 2 GM/50 ML BAG IVPB (14:23)
[2022-10-16 14:26] LABS: NT Pro B Type Natriuretic Pept 218 pg/mL (5-100); Troponin I < 0.012 ng/mL (0.000-0.034)
[2022-10-16 14:34] LABS: Troponin I < 0.012 ng/mL (0.000-0.034)
[2022-10-16 14:46] LABS: Influenza A QL RT-PCR Negative (Negative); Influenza B QL RT-PCR Negative (Negative); SARS-CoV-2 RNA PCR Negative
[2022-10-16 15:14] VITALS: PULSE 88; RESP 24
[2022-10-16 15:22] VITALS: BP 151/96; PULSE 90; RESP 20; O2SAT 97
[2022-10-16 15:47] VITALS: BP 150/87; PULSE 85; RESP 18; O2SAT 97
== END 2022-10-16 15:52 | disposition home or self-care (01) ==
PROVIDERS: Emergency Provider Emergency Medicine; PCP Internal Medicine
DX: J43.9 Emphysema, unspecified (principal); Z20.822 Contact with and (suspected) exposure to COVID-19; J96.11 Chronic respiratory failure with hypoxia; C92.01 Acute myeloblastic leukemia, in remission; D64.9 Anemia, unspecified; E78.5 Hyperlipidemia, unspecified; E11.42 Type 2 diabetes mellitus with diabetic polyneuropathy; N48.6 Induration penis plastica; Z99.81 Dependence on supplemental oxygen; Z94.81 Bone marrow transplant status; Z94.84 Stem cells transplant status; Z98.42 Cataract extraction status, left eye; Z98.41 Cataract extraction status, right eye; Z86.718 Personal history of other venous thrombosis and embolism; Z86.711 Personal history of pulmonary embolism; Z87.891 Personal history of nicotine dependence; Z79.01 Long term (current) use of 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
CPT/HCPCS: 36415; 71045; 80048; 82948; 83880; 84484; 85025; 87636; 93005; 94640; 96365; 96375; 99284; J2930; J3475

== ENCOUNTER 2022-12-30 20:06 | Inpatient (IN) | payer MEDICARE, MEDICAID, SELFPAY ==
[2022-12-30] VITALS (7 sets, daily range): BP systolic 107–132; BP diastolic 73–109; PULSE 50–65; RESP 11–20; TEMP 36.4; O2SAT 96–100; BMI 22.3
--- NOTE | ~2022-12-30 | XR_ITS ---
EXAMINATION: XR chest 1V portable Exam Date/Time: 12/30/2022 20:25 COAT JOINER LOCKSTITCH HISTORY: chest pain. STEMI Comparison: 10/16/2022. RESULT: Lines, tubes, and devices: None. Lungs and pleura: Clear. Cardiomediastinal silhouette: Stable. Other: No acute osseous or upper abdominal finding. IMPRESSION: No acute cardiopulmonary process. Reviewed, dictated and finalized at location K. JOINER LOCKSTITCH
--- NOTE | 2022-12-30 20:10 | ECG_ITS ---
Measurements Intervals [place] Rate: 56 P: 87 MA: 153 QRS: 104 QRSD: 114 T: 84 QT: 426 QTc: 412 Interpretive Statements SINUS BRADYCARDIA POSSIBLE RIGHT VENTRICULAR HYPERTROPHY [SOME/ALL OF: PROMINENT R IN V1, LATE TRANSITION, RAD, ASYA, SSS] INFERIOR MYOCARDIAL INFARCTION , POSSIBLY ACUTE [40+ ms Q WAVE AND/OR ST/T ABNORMALITY IN II/aVF] ACUTE CO WARNING: DATA QUALITY MAY AFFECT INTERPRETATION COMPARED TO ECG 10/16/2022 13:59:04 ACUTE INFERIOR WALL CURRENT OF INJURY IS NOW EVIDENT Electronically Signed On 12-31-2022 12:04:25 SERGEANT AT ARMS by Cruz Breen M.D.
--- NOTE | 2022-12-30 20:19 | ED.CHESTPAIN ---
HPI - Chest Pain General Chief Complaint: Chest Pain Stated Complaint: Chest pains Time Seen by Provider: 12/30/22 20:14 History of Present Illness HPI narrative: Patient is a 57-year-old male who presents ER with chest pain. Began around 1 PM in the afternoon. He was emptying what a box that occurred. It was a throbbing pain at the time. Currently sharp and stabbing. No radiation. Cannot describe alleviating factors nor aggravating factors. Currently rates 04/27. No history of coronary disease or coronary stenting. He is on Xarelto due to history of PE/DVT. Patient has history of stem cell transplant in the past due to leukemia but is not currently getting treatment. Related Data Home Medications Medication Instructions Recorded Confirmed atorvastatin 40 mg tablet (Lipitor) 40 mg PO DAILY 09/17/19 11/06/22 montelukast 10 mg tablet 10 mg PO HS 09/17/19 11/06/22 (Singulair) ofloxacin 0.3 % eye drops (Ocuflox) 1 - 2 drp ophthalmic (eye) BID PRN 09/17/19 11/06/22 SCRATCHED CORNEA pain gabapentin 300 mg capsule 300 mg PO QID PRN neuropathy pain 12/25/21 11/06/22 (Neurontin) acyclovir 400 mg tablet 400 mg PO TID 01/01/22 11/06/22 cholecalciferol (vitamin D3) 50 2,000 unit PO DAILY 01/01/22 11/06/22 mcg (2,000 unit) capsule ergocalciferol (vitamin D2) 1,250 50,000 unit PO WEEKLY 01/01/22 11/06/22 mcg (50,000 unit) capsule furosemide 20 mg tablet 10 mg PO QAM PRN Shortness Of 01/01/22 11/06/22 Breath mycophenolate mofetil 500 mg tablet 1,000 mg PO Q12H 01/01/22 11/06/22 omega 2-dzv-txa-fish oil 100 2 cap PO DAILY 01/01/22 11/06/22 mg-160 mg-1,000 mg capsule (Fish Oil) rivaroxaban 20 mg tablet (Xarelto) 20 mg PO DAILY 01/01/22 11/06/22 tacrolimus 0.5 mg capsule, 0.5 mg PO .qod 01/01/22 11/06/22 immediate-release (Prograf) voriconazole 200 mg tablet 200 mg PO Q12H 01/01/22 11/06/22 Allergies Allergy/AdvReac Type Severity Reaction Status Date / Time adhesive Allergy Unknown Hives Verified 12/30/22 20:14 adhesive tape AdvReac Mild REDNESS Verified 12/30/22 20:14 AND IRRITATION Review of Systems Review of Systems: All systems reviewed & are unremarkable except as noted in HPI and below Constitutional: Constitutional: Denies chills, Denies fatigue and Denies fever(s) ENT: Denies nasal congestion and Denies sore throat Cardiovascular: Cardiovascular: Reports chest pain, Denies radiating jaw, neck or arm pain and Denies slow heart rate Respiratory: Respiratory: Reports cough (chronic) and Denies dyspnea Gastrointestinal: Gastrointestinal: Denies abdominal pain, Denies nausea and Denies vomiting PMFSH Past Medical History Medical History 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 Anemia Anxiety Chronic anticoagulation Chronic obstructive pulmonary disease Chronic respiratory failure with hypoxia On 5 liters nasal cannula at nighttime. Deep venous thrombosis Depression Eczema Emphysema/COPD Hyperglycemia Hyperlipidemia Immunocompromised patient Patient on anti rejection medications. Insulin dependent type 2 diabetes mellitus Peripheral neuropathy Peyronie's disease Positive nasal culture for methicillin resistant Staphylococcus aureus Pulmonary emboli Sciatica Surgical History Surgical History History of bilateral cataract extraction History of orthopedic surgery Left tibia liz placement History of stem cell transplant Family History Family History Mother Acute myocardial infarction Father COPD (chronic obstructive pulmonary disease) Diabetes mellitus Alcohol abuse Social History Social History Social History: Surrogate medical decision maker: Lissy Kaiser, friend/roomm
[2022-12-30] MEDS: ASPIRIN 81 MG CHEWABLE TABLET 324 MG PO (20:25)
[2022-12-30 20:27] LABS: Basophils Absolute Auto 0.1 K/mm3 (0.0-0.1); Basophils Percent Auto 0.8 % (0.2-1.2); Eosinophils Absolute Auto 0.3 K/mm3 (0-0.3); Eosinophils Percent Auto 2.5 % (0-4.4); Hemoglobin 14.8 g/dL (14.0-18.0); Immature Granulocyte Absolute 0.02 K/mm3 (0.00-0.031); Immature Granulocyte Percent A 0.2 % (0-0.5); Lymphocytes Absolute Auto 5.86 K/mm3 (0.9-3.2); Lymphocytes Percent Auto 56.4 % (18.3-44.2); Mean Corpuscular HGB Conc 33.6 g/dl (32-36); Mean Corpuscular Hemoglobin 35.6 pg (26-34); Mean Corpuscular Volume 105.8 fl (80-100); Mean Platelet Volume 9.7 fl (7.4-10.4); Monocytes Absolute Auto 0.9 K/mm3 (0.1-0.6); Monocytes Percent Auto 8.3 % (2.6-8.5); Neutrophils Absolute Auto 3.3 K/mm3 (1.3-6.7); Neutrophils Percent Auto 31.8 % (45.5-73.1); Platelet Count Result 300 k/mm3 (150-375); Red Blood Count 4.16 M/mm3 (4.6-6.20); White Blood Count 10.4 K/mm3 (4.5-10.0)
[2022-12-30] MEDS: TICAGRELOR 90 MG TABLET 180 MG PO (20:32)
[2022-12-30 20:35] LABS: Glucose Point of Care 210 mg/dl (65-105)
[2022-12-30] MEDS: HEPARIN SODIUM 5,000 UNITS/ML VIAL 4000 UNITS IV PUSH (20:35)
[2022-12-30] MEDS: MORPHINE SULFATE (*CRX) 4 MG/ML INJ IV PUSH (20:41)
[2022-12-30 20:44] LABS: Atypical Lymphocytes Present; Macrocytosis 1+ (NORMAL); Platelet Estimate Adequate (Adequate); Schistocytes None Seen (NORMAL)
[2022-12-30 20:45] LABS: Prothrombin Time 12.7 Seconds (11.1-14.7)
[2022-12-30 20:46] LABS: Partial Thromboplastin Time 32.1 SECONDS (22.3-36.8)
[2022-12-30 21:06] LABS: Alanine Aminotransferase 39 U/L (6-50); Albumin Level 4.2 g/dL (3.5-5.1); Alkaline Phosphatase 143 U/L (38-126); Anion Gap 4 mmol/L (8-16); Aspartate Amino Transferase 61 U/L (17-59); Bilirubin,Total 0.5 mg/dL (0.2-1.3); Blood Urea Nitrogen 11 mg/dL (9-20); Calcium 8.5 mg/dL (8.4-10.2); Carbon Dioxide 29 mmol/L (22-30); Chloride 101 mmol/L (98-107); Estimated CRCL calculation 86 ml/min; Estimated Glomerular Filt Rate > 60; Glucose 214 mg/dL (65-110); Lipase 253 U/L (23-300); Potassium 4.1 mmol/L (3.4-5.0); Sodium 134 mmol/L (137-145)
[2022-12-30 21:46] LABS: Activated Clotting Time 354 SEC (74-137)
--- NOTE | 2022-12-30 22:07 | PM.IMHP ---
H&P: HPI History of Present Illness Date/Time: 12/30/22 22:07 Chief Complaint: Chest pain Narrative: Patient is a 57-year-old male with COPD, diabetes, DVT/PE, and history of AML status post bone marrow transplant with chronic etcms-kwnygn-qkgg disease who presented to the ER with chest pain. Found to have inferior STEMI. cardiac cath lab technologist activated. Patient with active chest pain. Hemodynamically stable. Review of Systems Review of Systems: 12 point ROS obtained. Negative, unless stated in HPI. 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 Anemia Anxiety Chronic anticoagulation Chronic obstructive pulmonary disease Chronic respiratory failure with hypoxia On 5 liters nasal cannula at nighttime. Deep venous thrombosis Depression Eczema Emphysema/COPD Hyperglycemia Hyperlipidemia Immunocompromised patient Patient on anti rejection medications. Insulin dependent type 2 diabetes mellitus Peripheral neuropathy Peyronie's disease Positive nasal culture for methicillin resistant Staphylococcus aureus Pulmonary emboli Sciatica Surgical History Surgical History History of bilateral cataract extraction History of orthopedic surgery Left tibia liz placement History of stem cell transplant Family History Family History Mother Acute myocardial infarction Father COPD (chronic obstructive pulmonary disease) Diabetes mellitus Alcohol abuse Social History Social History Social History: Surrogate medical decision maker: Lissy Kaiser, friend/roommate. Code status: Full code. Smoking packs per day: 0.5 Smoking cigarettes per day: 10.0 Years smoked: 43 Smoking pack-years: 21.50 Smoking status: Current some day smoker Tobacco type: cigarettes Smoking end date: 08/07/22 Additional smoking assessment comments: on nicotine patches Alcohol intake: never Substance use: never Lack of Transportation: No Lack of Food: Never True Current Housing: I Have Housing Concerned About Future Housing: No Difficulty Paying Gas/Electric Bills: No Difficulty Paying for Meds: No Currently Unemployed: No Education: Decline to Answer Difficulty w/ Childcare or Family Care: No Living arrangements: with friend(s) Additional living arrangements comments: He lives with his roommate in [place]. Occupation/Education: unemployed Spiritual care concerns: No Agree to blood products: Yes Meds Home Medications and Allergies Home Medications Medication Instructions Recorded Confirmed Type atorvastatin 40 mg tablet (Lipitor) 40 mg PO DAILY 09/17/19 11/06/22 History montelukast 10 mg tablet 10 mg PO HS 09/17/19 11/06/22 History (Singulair) ofloxacin 0.3 % eye drops (Ocuflox) 1 - 2 drp ophthalmic (eye) BID PRN 09/17/19 11/06/22 History SCRATCHED CORNEA pain albuterol sulfate 90 mcg/actuation 1 inhalation inhalation Q4-6H PRN 08/31/21 11/06/22 Rx breath activated powder shortness of breath or wheezing #1 inhaler,sensor ea gabapentin 300 mg capsule 300 mg PO QID PRN neuropathy pain 12/25/21 11/06/22 History (Neurontin) acyclovir 400 mg tablet 400 mg PO TID 01/01/22 11/06/22 History cholecalciferol (vitamin D3) 50 2,000 unit PO DAILY 01/01/22 11/06/22 History mcg (2,000 unit) capsule ergocalciferol (vitamin D2) 1,250 50,000 unit PO WEEKLY 01/01/22 11/06/22 History mcg (50,000 unit) capsule furosemide 20 mg tablet 10 mg PO QAM PRN Shortness Of 01/01/22 11/06/22 History Breath mycophenolate mofetil 500 mg tablet 1,000 mg PO Q12H 01/01/22 11/06/22 History omega 2-tom-tac-fish oil 100 2 cap PO DAILY 01/01/22 11/06/22 History mg-160 mg-1,000 mg capsule (Fish
--- NOTE | 2022-12-30 22:15 | PC.NURSE ---
This patient, Brady Jones, was admitted to Intensive Care Unit-9. Patient/family oriented to hospital policies and general routines including ID bracelet, bed and alarms, visiting hours, pain management, procedures, bathroom and other care routines, personal items, smoking policy, room service/diet, and visiting hours. Information on how to activate the Rapid Response Team has been discussed. Patient/Family are encouraged to report perceived risks to care and to ask questions if they do not understand what they are told or what they should do.
--- NOTE | 2022-12-30 22:17 | WPDMODSED ---
Moderate Sedation Note-Pt Data Patient Data Diagnosis: STEMI Present Complaint: STEMI Procedure to be performed/Plan: Primary PCI Allergies Allergy/AdvReac Type Severity Reaction Status Date / Time adhesive Allergy Unknown Hives Verified 12/30/22 20:14 adhesive tape AdvReac Mild REDNESS Verified 12/30/22 20:14 AND IRRITATION Home Medications Medication Instructions Recorded Confirmed Type atorvastatin 40 mg tablet (Lipitor) 40 mg PO DAILY 09/17/19 11/06/22 History montelukast 10 mg tablet 10 mg PO HS 09/17/19 11/06/22 History (Singulair) ofloxacin 0.3 % eye drops (Ocuflox) 1 - 2 drp ophthalmic (eye) BID PRN 09/17/19 11/06/22 History SCRATCHED CORNEA pain albuterol sulfate 90 mcg/actuation 1 inhalation inhalation Q4-6H PRN 08/31/21 11/06/22 Rx breath activated powder shortness of breath or wheezing #1 inhaler,sensor ea gabapentin 300 mg capsule 300 mg PO QID PRN neuropathy pain 12/25/21 11/06/22 History (Neurontin) acyclovir 400 mg tablet 400 mg PO TID 01/01/22 11/06/22 History cholecalciferol (vitamin D3) 50 2,000 unit PO DAILY 01/01/22 11/06/22 History mcg (2,000 unit) capsule ergocalciferol (vitamin D2) 1,250 50,000 unit PO WEEKLY 01/01/22 11/06/22 History mcg (50,000 unit) capsule furosemide 20 mg tablet 10 mg PO QAM PRN Shortness Of 01/01/22 11/06/22 History Breath mycophenolate mofetil 500 mg tablet 1,000 mg PO Q12H 01/01/22 11/06/22 History omega 7-tox-wqj-fish oil 100 2 cap PO DAILY 01/01/22 11/06/22 History mg-160 mg-1,000 mg capsule (Fish Oil) rivaroxaban 20 mg tablet (Xarelto) 20 mg PO DAILY 01/01/22 11/06/22 History tacrolimus 0.5 mg capsule, 0.5 mg PO .qod 01/01/22 11/06/22 History immediate-release (Prograf) voriconazole 200 mg tablet 200 mg PO Q12H 01/01/22 11/06/22 History fluticasone fur. 100 mcg-umeclid 1 inh .Route DAILY 1 month #60 ea 08/21/22 11/06/22 Rx 62.5 mcg-vilant 25 mcg inhalat.powder (Trelegy Ellipta) albuterol sulfate 2.5 mg/3 mL See Rx Instructions .Route 10/08/22 11/06/22 Rx (0.083 %) solution for nebulization .COMPLEX #75 mL prednisone 10 mg tablet 10 mg PO DIRECTED #34 tabs 10/19/22 11/06/22 Rx Current Medications: Active Medications Aspirin (Aspirin 81 Mg Enteric Tablet) 81 mg PO QAM ROSA MARIA Atorvastatin Calcium (Atorvastatin 40 Mg Tablet) 80 mg PO DAILY ROSA MARIA Perflutren Lipid Microsphere (Perflutren Lipid Microspheres 1.5 Ml Vial Diluted To 10 Ml Total Volume) 0 ml IV PUSH ONCE PRN; Protocol PRN Reason: adequate visualization Stop: 01/01/23 22:04 Ticagrelor (Ticagrelor 90 Mg Tablet) 90 mg PO Q12HR ROSA MARIA Sedation/Anesthesia: No previous sedation/anesthesia problems (including family history). 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 Anemia Anxiety Chronic anticoagulation Chronic obstructive pulmonary disease Chronic respiratory failure with hypoxia On 5 liters nasal cannula at nighttime. Deep venous thrombosis Depression Eczema Emphysema/COPD Hyperglycemia Hyperlipidemia Immunocompromised patient Patient on anti rejection medications. Insulin dependent type 2 diabetes mellitus Peripheral neuropathy Peyronie's disease Positive nasal culture for methicillin resistant Staphylococcus aureus Pulmonary emboli Sciatica Surgical History Surgical History History of bilateral cataract extraction History of orthopedic surgery Left tibia liz placement History of stem cell transplant Family History Family History Mother Acute myocardial infarction Father COPD (chronic obstructive pulmonary disease) Diabetes mellitus Alcohol abuse Social History Social History Social History: S
--- NOTE | 2022-12-30 22:18 | WPDCARDPROC ---
Cardiac Cath Procedure Note Date of procedure:: 12/30/22 Performing physician:: CATHETERIZATION LABORATORY REPORT Procedure Date: 12/30/2022 Director Of Architecture: Chin La M.D., [facility]? Referring Physician: Dr. Alexander ([facility]) ? Anesthesia: Versed and Fentanyl were ordered and given in my presence at 21:17, procedure ended at 21:53. Supervision of nurse monitored moderate sedation with Versed and Fentanyl was provided for 46 minutes. Total of Versed 1mg and Fentanyl 25mcg were administered by the Credit Administration Specialist RN Claritza. Pre-op Diagnosis: Inferior STEMI Post-op Diagnosis: 1. Acute thrombotic 100% occlusion of the mid RCA s/p successful PCI with RACHEL x 1. Left coronary system with mild-moderate disease. 2. Left ventricular end-diastolic pressure of 11mmHg Procedure(s): 1. Moderate sedation 2. Ultrasound-guided access of the right common femoral artery 3. Coronary angiography 4. PCI of the RCA with placement of RACHEL x 1 5. Left heart cath 6. Angioseal closure of the right common femoral artery Access Site: Right common femoral artery. Of note, radial access was not pursued because we are out of TR bands and they are on back order. Brief History and Clinical Indications: Patient is a 57 year old male referred for emergent cardiac cath for inferior STEMI. All risks, benefits and alternatives to left heart catheterization with or without percutaneous coronary intervention was discussed at length with the patient. Risk of complications including but not limited to bleeding, infection, arrhythmia, stroke, worsening kidney function, blood loss, groin hematoma, limb loss, emergency coronary artery bypass grafting, and even were discussed with the patient and all questions were answered. The patient understood and wished to proceed. Time out called, patient name, date of , medical record number, allergies, procedure performed, identify Director Of Architecture, patient and staff member concurred with accurate data, procedure carried on. Findings: LEFT HEART CATHETERIZATION FINDINGS: 1. Left main: The left main coronary artery is widely patent without any significant obstructive disease. 2. Left anterior descending: The LAD has mild-moderate diffuse disease of the proximal-mid LAD. The remainder of the LAD has mild luminal irregularities. Diagonal branch is a very small vessel without obstructive disease. 3. Ramus: There is a large caliber Ramus branch with mild diffuse disease in its proximal portion. Remainder of the vessel has mild luminal irregularities. 4. Left circumflex: The left circumflex has mild diffuse disease with a focal 30-40% stenosis in its mid portion. 5. Right coronary artery: The RCA is the dominant vessel. There is an acute thrombotic 100% occlusion of the mid RCA. 6. Left ventricle: A. End-diastolic pressure 11mmHg. B. LV gram deferred. C. No significant gradient across aortic valve on catheter pullback. Description of Procedure and PCI: Informed consent signed and placed in the chart. Patient transferred to specialist employee labor relations room. Prepped and draped in usual sterile fashion. 2% lidocaine in right groin area. Micropuncture needle used to access right common femoral artery with Seldinger technique under fluoroscopic and ultrasound guidance. J wire advanced, micropuncture cannula placed. Right iliofemoral angiogram performed, access confirmed and micropuncture cannula exchanged for 6-FR sheath. 5F FL4 diagnostic catheter engaged Left Main Coronary Artery. Multiple orthogonal angiograms obtained and reviewed. Heparin was used for anticoagulation (ACT maintained above 250) Patient loaded with heparin at 70 units/kg. 6F JR 4 guide catheter was used to intubate the RCA 0.014 Kipp coronary wire was passed in to the distal RPLV The lesion was pre-dilated with a 2.5mm x 15mm balloon inflated to high DORIAN. Multiple balloon inflations done. The lesion was again pre-dilated with a 3.0mm x 15mm balloon inflated
--- NOTE | 2022-12-30 22:29 | ECG_ITS ---
Measurements Intervals [place] Rate: 49 P: 70 CA: 146 QRS: 75 QRSD: 104 T: 46 QT: 462 QTc: 417 Interpretive Statements SINUS BRADYCARDIA WITH OCCASIONAL VENTRICULAR PREMATURE COMPLEXES RECENT INFERIOR WALL HI BY PREVIOUS ECG REVIEW ABNORMAL ECG COMPARED TO ECG 12/30/2022 20:17:58 MARKED IMPROVEMENT IN ACUTE CURRENT OF INJURY FOLLOWING PCI Electronically Signed On 12-31-2022 12:06:06 CUT TO LENGTH OPERATOR by Cruz Breen M.D.
[2022-12-30] MEDS: NICOTINE (*PBKC) 21 MG PATCH 1 PATCH TRANSDERM (23:02)
--- NOTE | 2022-12-30 23:27 | PM.IMCN ---
Assessment and Plan Assessment and plan (1) ST elevation (STEMI) myocardial infarction: Code(s): I21.3 - ST elevation (STEMI) myocardial infarction of unspecified site Status: Acute Assessment and Plan: Status post left heart catheterization Admit to ICU Supportive care Continue to monitor Follow cardiology recommendations (2) Excwi-txkgpq-aldq disease: Code(s): D89.813 - Ojsvx-emobwp-ojgz disease, unspecified Status: Acute Assessment and Plan: Stable (3) Immunocompromised patient: Code(s): D84.9 - Immunodeficiency, unspecified Status: Acute Assessment and Plan: Continue tacrolimus and mycophenolate Continue to monitor (4) Insulin dependent type 2 diabetes mellitus: Code(s): E11.9 - Type 2 diabetes mellitus without complications; Z79.4 - prison (current) use of insulin Status: Acute Assessment and Plan: Accu-Cheks AC and HS Carb consistent diet Continue home meds (5) Acute myeloblastic leukemia, in remission: Code(s): C92.01 - Acute myeloblastic leukemia, in remission Status: Acute Assessment and Plan: Status post bone marrow transplant In remission Follow-up in outpatient setting (6) COPD (chronic obstructive pulmonary disease): Code(s): J44.9 - Chronic obstructive pulmonary disease, unspecified Status: Acute Assessment and Plan: Patient not actively wheezing Breathing treatments Q 6 hours p.r.n. (7) Tobacco dependence: Code(s): F17.200 - Nicotine dependence, unspecified, uncomplicated Status: Acute Assessment and Plan: Nicotine patch as needed (8) Acute myeloid leukemia: Code(s): C92.00 - Acute myeloblastic leukemia, not having achieved remission Status: Acute Assessment and Plan: In remission Follow-up in outpatient setting HPI Data of Consult Consult date: 12/31/22 Requesting Physician: Chin La MD Primary Care Provider: Kirt Lindsay, Consult Narrative Narrative: Brady Jones is a 57 year old male who is status post left heart catheterization with stent placement to RCA, AML status post bone transplant, khznm-uaiqfg-cbbf disease, chronic immunosuppressant therapy, whom the hospitalist group has been requested to see in consult. Patient initially came to the hospital with chest pain in the precordial area that lasted for several hours before deciding to come to the emergency room, patient denies any fevers, rigors, chills, cough, sputum production, nausea, vomiting states that his appetite her fluctuates, denies any syncope, near syncope, lightheadedness, diaphoresis had low blood sugar in the middle of the night at 69 which resolved after taking orange juice. Pain was localized to the precordial area he took Tylenol and went to rest in bed however pain was worse upon waking up and was brought to the emergency room by his significant other. Patient underwent left heart catheterization please see report elsewhere in this chart. Patient is now in intensive care unit. At the time of my visit patient denied any discomfort. Preliminary workup was significant for: Initial troponin was 1.270 repeat troponin was 12,500 Patient tested negative for influenza type A, influenza type B and COVID-19 A chest x-ray was reported as: IMPRESSION: No acute cardiopulmonary process. Initial EKG: SINUS BRADYCARDIA POSSIBLE RIGHT VENTRICULAR HYPERTROPHY [SOME/ALL OF: PROMINENT R IN V1, LATE TRANSITION, RAD, ASYA, SSS] POSSIBLE ANTERIOR MYOCARDIAL INFARCTION , PROBABLY OLD [30 ms Q WAVE IN V3/V4, OR R < 0.2 mV IN V4] INFERIOR MYOCARDIAL INFARCTION , POSSIBLY ACUTE [40+ ms Q WAVE AND/OR ST/T ABNORMALITY IN II/aVF] ACUTE VT WARNING: DATA QUALITY MAY AFFECT INTERPRETATION COMPARED TO ECG 10/16/2022 13:59:04 SINUS BRADYCARDIA NOW PRESENT MYOCARDIAL INFARCT FINDING NOW PRESENT Review of Systems Review of Systems: Chest pain, low blood sugars C
[2022-12-31] VITALS (21 sets, daily range): BP systolic 109–145; BP diastolic 71–92; PULSE 48–73; RESP 11–23; TEMP 36.4–36.6; O2SAT 95–100
--- NOTE | 2022-12-31 | ECHO_ITS ---
Patient Info Name: Brady Jones Age: 57 years : 1965 Gender: Male Ht: 70 in Wt: 150 lbs BSA: 1.83 m2 HR: 60 bpm BP: 111 / 71 mmHg Heart Rhythm: Sinus Rhythm Technical Quality: Fair Exam Date: 12/31/2022 9:49 AM Exam Location: [facility] Patient Status: Inpatient Admit Date: 12/30/2022 Staff Ordering Physician: Chin La MD (vashti/gilberto) Cash Processing Specialist: Taina Jefferson RDCS Attending Provider: Chin La MD (vashti/gilberto) Referring Physician: Abhinav VILLAVICENCIO; Exam Type: CA echo dop color flow w con Study Info Indications - stemi Complete two-dimensional, color flow and Doppler transthoracic echocardiogram is performed with contrast to opacify the left ventricle and to improve the deliniation of the left ventricle endocardial borders. Contrast/Agitated Saline Contrast/Ag. Saline: Definity Amount: 3.00 ml Administered By: Taina Jefferson RDCS Existing IV Access: Yes IV Access Condition: patent with no signs of infiltration Summary 1. Definity contrast injected to improve visualization. 2. Inferior akinesia with inferoseptal hypokinesia. 3. Mildly reduced overall ejection fraction. 4. No valvular dysfunction. 5. Normal appearing RV with normal RV function. Left Ventricle Left ventricular chamber dimension is mildly enlarged. Left ventricular systolic function is mildly reduced, estimated at 45-50%. The left ventricular diastolic function is grade I diastolic dysfunction. Right Ventricle Right ventricular chamber dimension is normal. Left Atria Left atrial chamber dimension is normal. Right Atria Right atrial chamber dimension is normal. Aortic Valve The aortic valve is normal. Pulmonic Valve The pulmonic valve is not well visualized. Mitral Valve The mitral valve has normal leaflets. There is no mitral valve regurgitation. Tricuspid Valve The tricuspid valve leaflets are normal. Pericardium/Pleural The pericardium appears normal. Aorta The aortic root size at the sinus of Valsalva is normal. Left Ventricular Outflow Tract Name Value Normal LVOT 2D LVOT Diameter 2.04 cm LVOT Doppler LVOT Peak Gradient 2 mmHg LVOT Mean Gradient 1 mmHg LVOT VTI 12.95 cm LVOT VTI/AV VTI Ratio 1.05 LVOT Stroke Volume 42.51 ml LVOT CO 2.56 l/min LVOT CI 1.40 L/min/m2 Pulmonic Valve Name Value Normal RVOT Doppler RVOT Peak Gradient 2 mmHg PV Doppler PV Peak Gradient 2 mmHg Mitral Valve
[2022-12-31 00:37] LABS: Alanine Aminotransferase 47 U/L (6-50); Albumin Level 3.8 g/dL (3.5-5.1); Alkaline Phosphatase 119 U/L (38-126); Anion Gap 2 mmol/L (8-16); Aspartate Amino Transferase 145 U/L (17-59); Bilirubin,Total 0.6 mg/dL (0.2-1.3); Blood Urea Nitrogen 11 mg/dL (9-20); Calcium 8.3 mg/dL (8.4-10.2); Carbon Dioxide 27 mmol/L (22-30); Chloride 100 mmol/L (98-107); Cholesterol 167 mg/dL (0-200); Estimated CRCL calculation 101 ml/min; Estimated Glomerular Filt Rate > 60; Glucose 167 mg/dL (65-110); HDL Direct 48 mg/dL; Potassium 3.8 mmol/L (3.4-5.0); Sodium 129 mmol/L (137-145); Triglycerides 77 mg/dL (<150)
[2022-12-31 00:47] LABS: LDL Cholesterol Direct 77 mg/dL
[2022-12-31 01:01] LABS: Hemoglobin A1C 8.2 % (<5.7)
[2022-12-31 03:20] LABS: Basophils Absolute Auto 0.1 K/mm3 (0.0-0.1); Basophils Percent Auto 0.7 % (0.2-1.2); Eosinophils Absolute Auto 0.2 K/mm3 (0-0.3); Eosinophils Percent Auto 2.2 % (0-4.4); Hematocrit 39.5 % (42.0-52.0); Hemoglobin 13.5 g/dL (14.0-18.0); Immature Granulocyte Absolute 0.04 K/mm3 (0.00-0.031); Immature Granulocyte Percent A 0.4 % (0-0.5); Lymphocytes Absolute Auto 4.66 K/mm3 (0.9-3.2); Mean Corpuscular HGB Conc 34.2 g/dl (32-36); Mean Corpuscular Hemoglobin 35.9 pg (26-34); Mean Corpuscular Volume 105.1 fl (80-100); Mean Platelet Volume 10.1 fl (7.4-10.4); Monocytes Absolute Auto 0.9 K/mm3 (0.1-0.6); Monocytes Percent Auto 8.8 % (2.6-8.5); Neutrophils Absolute Auto 4.2 K/mm3 (1.3-6.7); Neutrophils Percent Auto 41.9 % (45.5-73.1); Platelet Count Result 275 k/mm3 (150-375); Red Blood Count 3.76 M/mm3 (4.6-6.20); White Blood Count 10.1 K/mm3 (4.5-10.0)
[2022-12-31 03:37] LABS: Alanine Aminotransferase 53 U/L (6-50); Albumin Level 3.8 g/dL (3.5-5.1); Alkaline Phosphatase 118 U/L (38-126); Anion Gap 2 mmol/L (8-16); Aspartate Amino Transferase 200 U/L (17-59); Bilirubin,Total 0.5 mg/dL (0.2-1.3); Blood Urea Nitrogen 11 mg/dL (9-20); Calcium 8.2 mg/dL (8.4-10.2); Carbon Dioxide 30 mmol/L (22-30); Chloride 104 mmol/L (98-107); Estimated CRCL calculation 101 ml/min; Estimated Glomerular Filt Rate > 60; Glucose 197 mg/dL (65-110); Potassium 3.8 mmol/L (3.4-5.0); Sodium 136 mmol/L (137-145)
[2022-12-31] MEDS: FLUTICASONE/UMECLIDIN/VILANTER 100-62.5-25 MCG ELLIPTA 1 PUFF INHALATION (07:00)
[2022-12-31] MEDS: INSULIN ASPART (*BKC) 100 UNITS/ML SUB-Q ×2 (08:07→18:01)
[2022-12-31 08:18] LABS: Glucose Point of Care 224 mg/dl (65-105)
[2022-12-31] MEDS: OMEGA 3 POLYUNSAT FATTY ACIDS 1 GM CAP 2 GM PO (08:24)
[2022-12-31] MEDS: mycophenolate mofetiL 250 MG CAPSULE 500 MG PO ×2 (08:24→20:29)
[2022-12-31] MEDS: ACYCLOVIR 400 MG TABLET PO ×2 (08:24→20:29)
[2022-12-31] MEDS: CHOLECALCIFEROL 1,000 UNITS TABLET 2000 UNITS PO (08:24)
[2022-12-31] MEDS: TICAGRELOR 90 MG TABLET PO ×2 (08:25→20:30)
[2022-12-31] MEDS: TACROLIMUS 0.5 MG CAPSULE PO (08:25)
[2022-12-31] MEDS: ASPIRIN 81 MG ENTERIC TABLET PO (08:25)
[2022-12-31] MEDS: GABAPENTIN 300 MG CAPSULE PO ×2 (08:25→20:36)
--- NOTE | 2022-12-31 08:38 | WPDCNINT ---
Assessment and Plan Assessment and plan (1) ST elevation (STEMI) myocardial infarction: Code(s): I21.3 - ST elevation (STEMI) myocardial infarction of unspecified site Status: Acute Assessment and Plan: Status post PCI 1. Acute thrombotic 100% occlusion of the mid RCA s/p successful PCI with RACHEL x 1. Left coronary system with mild-moderate disease. 2. Left ventricular end-diastolic pressure of 11mmHg Currently chest pain-free Check echocardiogram Continue telemetry monitoring Continue aspirin statin Brilinta Beta-alyssa was not started due to bradycardia He is already on anticoagulation (2) COPD (chronic obstructive pulmonary disease): Code(s): J44.9 - Chronic obstructive pulmonary disease, unspecified Status: Acute Assessment and Plan: Continue p.r.n. albuterol and trelegy Oxygen as needed (3) Diabetes mellitus: Qualifiers: Diabetes mellitus type: type 2 Diabetes mellitus remote computer terminal operator insulin use: with remote computer terminal operator use Diabetes mellitus complication status: with other specified complication Qualified Code(s): E11.69 - Type 2 diabetes mellitus with other specified complication; Z79.4 - penitentiary (current) use of insulin Code(s): E11.9 - Type 2 diabetes mellitus without complications Status: Acute Assessment and Plan: Continue with meal insulin sliding scale Patient states that he has discontinued taking Lantus as per his discussion with his software developer consultant Continue home dose Neurontin for neuropathy (4) Chronic anticoagulation: Code(s): Z79.01 - long term care administrator (current) use of 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 Status: Acute Assessment and Plan: Continue Xarelto (5) Rmepq-xdvrhc-ptcc disease: Code(s): D89.813 - Zdjuh-cbzzdd-rqzc disease, unspecified Status: Acute Assessment and Plan: Continue tacrolimus, voriconazolet mycophenolate mofetil and acyclovir (6) Acute myeloblastic leukemia, in remission: Code(s): C92.01 - Acute myeloblastic leukemia, in remission Status: Acute Assessment and Plan: See above Plan DVT prophylaxis -Xarelto Nutrition -heart healthy diet Code Status - Full Code Transfer out of ICU today Expediter Service Order Consult Note Consult date: 12/31/22 Reason for consult: STEMI HPI: Brady Jones is a 57 year old male with past medical history of COPD, diabetes, DVT/PE, and history of AML status post bone marrow transplant with chronic kpbzc-bgnxgh-ltyh disease and on immunosuppressant who presented to the ER with chest pain last night. Patient states that he was feeling fine prior to that and rhythm middle of night he started having pain in left side of his chest. Pain was 9 out 10 severe and felt like someone poking a sharp needle into his chest. No radiation. No aggravating or relieving factors. No associated nausea vomiting shortness of breath palpitation dizziness or lightheadedness. During evaluation patient was found to be having inferior STEMI. Patient underwent emergent cardiac catheterization which showed 1. Acute thrombotic 100% occlusion of the mid RCA s/p successful PCI with RACHEL x 1. Left coronary system with mild-moderate disease. 2. Left ventricular end-diastolic pressure of 11mmHg Patient admitted to ICU postprocedure for further evaluation management. Currently denies any complaints and states his chest pain is resolved. Normal sinus rhythm on the monitor blood pressure except. Sheath has been removed Review of system is positive for chronic neuropathic pain in his feet and chronic cough from his COPD which he states is unchanged. 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
[2022-12-31] MEDS: ATORVASTATIN 40 MG TABLET 80 MG PO (08:55)
[2022-12-31] MEDS: PERFLUTREN LIPID MICROSPHERES 1.5 ML VIAL DILUTED TO 10 ML TOTAL VOLUME IV PUSH (10:25)
--- NOTE | 2022-12-31 10:26 | IVDEFINITY ---
Prior to administration of IV Definity the patient was educated on the risks and benefits of the imaging enhancing agent including potential adverse side effects. The patient verbalized understanding. Allergies were verified. No exclusion criteria were identified and at least one of the following inclusion criteria were met: 1) physician request, 2) patient technically difficult to image (per the [place] [employer] guidelines of two or more segments not discernable within the apical view), or 3) questionable left ventricular function. ?
--- NOTE | 2022-12-31 11:04 | PM.IMPN ---
Progress Note: A&P Assessment and Plan (1) ST elevation (STEMI) myocardial infarction: Code(s): I21.3 - ST elevation (STEMI) myocardial infarction of unspecified site Status: Acute Assessment and Plan: Status post PCI 1. Acute thrombotic 100% occlusion of the mid RCA s/p successful PCI with RACHEL x 1. Left coronary system with mild-moderate disease. 2. Left ventricular end-diastolic pressure of 11mmHg Currently chest pain-free Check echocardiogram Continue telemetry monitoring Continue aspirin statin Brilinta Beta-alyssa was not started due to bradycardia He is already on anticoagulation (2) COPD (chronic obstructive pulmonary disease): Code(s): J44.9 - Chronic obstructive pulmonary disease, unspecified Status: Acute Assessment and Plan: Continue p.r.n. albuterol and trelegy Oxygen as needed (3) Diabetes mellitus: Qualifiers: Diabetes mellitus type: type 2 Diabetes mellitus longterm insulin use: with intermission coordinator use Diabetes mellitus complication status: with other specified complication Qualified Code(s): E11.69 - Type 2 diabetes mellitus with other specified complication; Z79.4 - snf (current) use of insulin Code(s): E11.9 - Type 2 diabetes mellitus without complications Status: Acute Assessment and Plan: Continue with meal insulin sliding scale Patient states that he has discontinued taking Lantus as per his discussion with his digital art director Continue home dose Neurontin for neuropathy (4) Chronic anticoagulation: Code(s): Z79.01 - snf (current) use of 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 Status: Acute Assessment and Plan: Continue Xarelto (5) Mzfyx-wbvfmw-lzfg disease: Code(s): D89.813 - Nnmwy-cvepzw-eaec disease, unspecified Status: Acute Assessment and Plan: Continue tacrolimus, voriconazolet mycophenolate mofetil and acyclovir (6) Acute myeloblastic leukemia, in remission: Code(s): C92.01 - Acute myeloblastic leukemia, in remission Status: Acute Assessment and Plan: See above Plan DVT prophylaxis -Xarelto Nutrition -heart healthy diet Code Status - Full Code Transfer out of ICU today Subjective Date/time seen: 12/31/22 11:04 No new complaints Exam Narrative: General: Pt is alert awake and in NAD Lungs/Chest: Trachea central overall decreased air entry throughout likely from patient's COPD but no significant wheezing or crackles heard Cardiac: RRR. Normal S1 S2. No murmurs Circulation: Pedal pulses are intact and symmetrical. Abdomen: Normal bowel sounds.. Soft. NT. ND. Extremities: No clubbing, cyanosis or edema. Warm right groin at the site of cardiac catheterization the dressing is slightly bloody but otherwise no bruising tenderness or redness in that area : Llamas in place Neurologic: Follows commands. Moves all 4 extremities PERRL AO x3 Skin: No Rash Objective Data Vital Signs Vital Signs: Vital Signs - 24 hr 12/30/22 20:07 12/30/22 20:14 12/30/22 20:36 Temperature 97.5 F L Pulse Rate 65 65 55 L Respiratory Rate 16 20 Blood Pressure 107/73 121/77 Pulse Oximetry 96 96 Oxygen Delivery 12/30/22 21:00 12/30/22 22:30 12/30/22 23:00 Temperature Pulse Rate 56 L 50 L 50 L Respiratory Rate 12 11 L 15 Blood Pressure 123/109 H 120/81 118/83 Pulse Oximetry 97 99 99 Oxygen Delivery 12/30/22 23:30 12/30/22 22:30 12/31/22 00:00 Temperature Pulse Rate 50 L Respiratory Rate 13 Blood Pressure 132/84 Pulse Oximetry 100 Oxygen Delivery Room Air Room Air 12/31/22 00:30 12/31/22 00:00 12/31/22 00:01 Temperature 97.8 F Pulse Rate 68 48 L 48 L Respiratory Rate 17 15 Blood Pressure 134/92 H 131/80 Pulse Oximetry 100 100 Oxygen Delivery 12/31/22 01:30 12/31/22 02:30 12/31/22 03:30 Temperature Pulse Rate 61 64 53 L Respiratory Rate 13 21 H 15 Blood Pressure 137/86 115/71 109/71 Pulse Oximetry 99 99 98 Oxygen Delivery
[2022-12-31 11:41] LABS: Glucose Point of Care 83 mg/dl (65-105)
[2022-12-31 13:52] LABS: Glucose Point of Care 251 mg/dl (65-105)
--- NOTE | 2022-12-31 14:46 | PM.PNCARD ---
Progress Note: A&P Assessment and Plan (1) ST elevation (STEMI) myocardial infarction: Code(s): I21.3 - ST elevation (STEMI) myocardial infarction of unspecified site Status: Acute Assessment and Plan: S/p PCI to the RCA with 1 RACHEL. Remained hemodynamically stable overnight. Continue DAPT with ASA, Brilinta Continue high intensity statin Will start low dose beta alyssa, he has not had any significant bradycardia thus far today As patient is on Xarelto, can consider switching his Brilinta to Plavix later. Will plan to resume Xarelto tomorrow evening since he did have some oozing from arterial access site. TTE showed mildly reduced LVSF with EF 45-50%, inferior akinesia with inferoseptal hypokinesia Given his STEMI, recommend that patient be on triple therapy for at least 1 month (ASA + P2Y12 inhibitor + NOAC). After 1 month, can consider dropping the ASA and continue with P2Y12 inhibitor and NOAC. He can downgrade to IMU status Subjective Date/time seen: 12/31/22 11:46 Doing well this morning. Had some mild bleeding from groin arterial access site, pressure held for 10 min with no further oozing. No chest pain or shortness of breath. Exam Const: General: no acute distress HENMT: Mouth: Yes moist mucous membranes Eyes: General: appearance normal, both eyes and all related structures Sclera: sclerae normal Neck: Neck: supple Resp: Effort & Inspection: normal respiratory effort Auscultation: diminished lung sounds Cardio: Rate: bradycardic Rhythm: regular rhythm Heart sounds: no murmurs Skin: General skin exam: normal color Other: R groin arterial access site free from bleeding, hematoma, bruit. Neuro: Speech: normal speech Extrem: General: normal to inspection Psych: Mental Status: mental status grossly normal Affect: normal affect Objective Data Vital Signs Vital Signs: Vital Signs - 24 hr 12/30/22 20:07 12/30/22 20:14 12/30/22 20:36 Temperature 36.4 C L Pulse Rate 65 65 55 L Respiratory Rate 16 20 Blood Pressure 107/73 121/77 Pulse Oximetry 96 96 Oxygen Delivery 12/30/22 21:00 12/30/22 22:30 12/30/22 23:00 Temperature Pulse Rate 56 L 50 L 50 L Respiratory Rate 12 11 L 15 Blood Pressure 123/109 H 120/81 118/83 Pulse Oximetry 97 99 99 Oxygen Delivery 12/30/22 23:30 12/30/22 22:30 12/31/22 00:00 Temperature Pulse Rate 50 L Respiratory Rate 13 Blood Pressure 132/84 Pulse Oximetry 100 Oxygen Delivery Room Air Room Air 12/31/22 00:30 12/31/22 00:00 12/31/22 00:01 Temperature 36.6 C Pulse Rate 68 48 L 48 L Respiratory Rate 17 15 Blood Pressure 134/92 H 131/80 Pulse Oximetry 100 100 Oxygen Delivery 12/31/22 01:30 12/31/22 02:30 12/31/22 03:30 Temperature Pulse Rate 61 64 53 L Respiratory Rate 13 21 H 15 Blood Pressure 137/86 115/71 109/71 Pulse Oximetry 99 99 98 Oxygen Delivery 12/31/22 02:00 12/31/22 02:01 12/31/22 04:01 Temperature 36.4 C L Pulse Rate 50 L 50 L 65 Respiratory Rate 11 L 13 Blood Pressure 124/74 117/76 Pulse Oximetry 100 97 Oxygen Delivery 12/31/22 04:00 12/31/22 04:00 12/31/22 06:00 Temperature Pulse Rate 67 60 Respiratory Rate Blood Pressure Pulse Oximetry Oxygen Delivery Room Air 12/31/22 06:01 12/31/22 07:00 12/31/22 07:00 Temperature Pulse Rate 60 54 L 54 L Respiratory Rate 17 18 18 Blood Pressure 111/71 Pulse Oximetry 98 98 Oxygen Delivery Room Air 12/31/22 08:00 12/31/22 08:00 12/31/22 08:00 Temperature Pulse Rate 62 66 Respiratory Rate 17 Blood Pressure 130/82 Pulse Oximetry 100 Oxygen Delivery Room Air 12/31/22 10:00 12/31/22 10:00 12/31/22 12:00 Temperature Pulse Rate 60 57 L Respiratory Rate 17 Blood Pressure 130/82 Pulse Oximetry 97 Oxygen Delivery Room Air 12/31/22 12:00 12/31/22 12:00 12/31/22 14:00 Temperature 36.6 C Pulse Rate 73 68 69 Respiratory Rate 20 Blo
[2022-12-31 17:13] LABS: Glucose Point of Care 218 mg/dl (65-105)
[2022-12-31] MEDS: RIVAROXABAN 20 MG TABLET PO (18:02)
[2022-12-31] MEDS: NICOTINE (*PBKC) 21 MG PATCH 1 PATCH TRANSDERM (20:29)
[2022-12-31] MEDS: MONTELUKAST SODIUM 10 MG TABLET PO (20:29)
[2022-12-31 20:38] LABS: Glucose Point of Care 181 mg/dl (65-105)
[2023-01-01] VITALS (10 sets, daily range): BP systolic 117–129; BP diastolic 63–75; PULSE 58–93; RESP 18–23; TEMP 36.4–36.7; O2SAT 95–99
--- NOTE | 2023-01-01 02:03 | PC.NURSE ---
This patient, Brady Jones, was received from ICU 9 on 01/01/23 at 0203. Report received from BECKI Barnes. Patient/family oriented to unit policies and routines.
[2023-01-01] MEDS: FLUTICASONE/UMECLIDIN/VILANTER 100-62.5-25 MCG ELLIPTA 1 PUFF INHALATION (07:00)
[2023-01-01] MEDS: ATORVASTATIN 40 MG TABLET 80 MG PO (08:23)
[2023-01-01] MEDS: GABAPENTIN 300 MG CAPSULE PO (08:23)
[2023-01-01] MEDS: CHOLECALCIFEROL 1,000 UNITS TABLET 2000 UNITS PO (08:24)
[2023-01-01] MEDS: ACYCLOVIR 400 MG TABLET PO (08:26)
[2023-01-01] MEDS: OMEGA 3 POLYUNSAT FATTY ACIDS 1 GM CAP 2 GM PO (08:26)
[2023-01-01] MEDS: mycophenolate mofetiL 250 MG CAPSULE 500 MG PO (08:26)
[2023-01-01] MEDS: ASPIRIN 81 MG ENTERIC TABLET PO (08:26)
[2023-01-01] MEDS: TICAGRELOR 90 MG TABLET PO (08:26)
[2023-01-01] MEDS: METOPROLOL SUCCINATE EXT REL 12.5 MG TABCR PO (08:27)
--- NOTE | 2023-01-01 09:46 | PM.DS ---
DS: Admitting Diagnosis Discharge Date 01/01/23 Admitting Diagnosis Chest pain DS: Discharge Diagnosis Discharge Diagnosis (1) ST elevation (STEMI) myocardial infarction: Code(s): I21.3 - ST elevation (STEMI) myocardial infarction of unspecified site Status: Acute Assessment and Plan: S/p PCI to the RCA with 1 RACHEL. Remained hemodynamically stable overnight. Continue DAPT with ASA, Plavix Continue high intensity statin Will start low dose beta alyssa, he has not had any significant bradycardia thus far today As patient is on Xarelto, I am going to switch him to Plavix starting tomorrow with a loading dose of 600mg tomorrow, then 75mg daily thereafter Will plan to resume Xarelto tonight TTE showed mildly reduced LVSF with EF 45-50%, inferior akinesia with inferoseptal hypokinesia Given his STEMI, recommend that patient be on triple therapy for at least 1 month (ASA + P2Y12 inhibitor + NOAC). After 1 month, can consider dropping the ASA and continue with P2Y12 inhibitor and NOAC. OK for discharge home today DS: Summary Hospital Course Hospital Course: 12/30/22 presented to the ED with chest pain and was found to have an inferior STEMI. He was taken to the [facility] emerg[facility] where he was found to have a 100% occluded RCA. This was treated with standard balloon angioplasty and placement of RACHEL x1. Aside from some minor oozing from the arterial access site his recovery was unremarkable and he recovered as expected. He is stable and appropriate for discharge home today. Time Spent with Patient Time attestation: Total time spent providing and/or coordinating discharge services: Exam Const: General: no acute distress HENMT: Mouth: Yes moist mucous membranes Eyes: General: appearance normal, both eyes and all related structures Sclera: sclerae normal Neck: Neck: supple Resp: Effort & Inspection: normal respiratory effort Auscultation: diminished lung sounds Cardio: Rate: bradycardic Rhythm: regular rhythm Heart sounds: no murmurs Skin: General skin exam: normal color Other: R groin arterial access site free from bleeding, hematoma, bruit. Neuro: Speech: normal speech Extrem: General: normal to inspection Psych: Mental Status: mental status grossly normal Affect: normal affect DS: Data Data Completed and Pending Labs on day of discharge: Labs from last 24 hours 12/31/22 12/31/22 12/31/22 20:25 17:10 13:49 POC Capillary Glucose 181 H 218 H 251 H 12/31/22 11:38 POC Capillary Glucose 83 Discharge Plan Discharge Consulting providers: Say Del Cid V. Discharging Clinician: Manuela Olmedo Patient Disposition: Home, Self-Care Activity: other - see discharge instructions Diet: heart healthy Wound Care Instructions: other - see discharge instructions Discharge Instructions: [facility] [address] [facility] [address] [place] [id number] DISCHARGE INSTRUCTIONS - POST CARDIAC CATH Activity Restriction 1. No Driving for 24 hours 2. No lifting, pushing or pulling more than 10 LBS for 1 week 3. No strenuous activity or exercising for 1 week 4. Shower after 24 hours, do not soak in any water such as hot tubs or bath tubs Wound Care 1. Remove dressing 24 hours after your procedure prior to showering 2. Lather soap and water to puncture site and rinse then pat dry 3. You may apply a new band aid to the site
[2023-01-01 09:49] LABS: Glucose Point of Care 157 mg/dl (65-105)
--- NOTE | 2023-01-01 11:16 | PM.IMPN ---
Progress Note: A&P Assessment and Plan (1) ST elevation (STEMI) myocardial infarction: Code(s): I21.3 - ST elevation (STEMI) myocardial infarction of unspecified site Status: Acute Assessment and Plan: Status post PCI 1. Acute thrombotic 100% occlusion of the mid RCA s/p successful PCI with RACHEL x 1. Left coronary system with mild-moderate disease. 2. Left ventricular end-diastolic pressure of 11mmHg Currently chest pain-free Check echocardiogram Continue telemetry monitoring Continue aspirin statin Brilinta Beta-alyssa was not started due to bradycardia He is already on anticoagulation (2) COPD (chronic obstructive pulmonary disease): Code(s): J44.9 - Chronic obstructive pulmonary disease, unspecified Status: Acute Assessment and Plan: Continue p.r.n. albuterol and trelegy Oxygen as needed (3) Diabetes mellitus: Qualifiers: Diabetes mellitus type: type 2 Diabetes mellitus penitentiary insulin use: with buttermaker helper use Diabetes mellitus complication status: with other specified complication Qualified Code(s): E11.69 - Type 2 diabetes mellitus with other specified complication; Z79.4 - residential (current) use of insulin Code(s): E11.9 - Type 2 diabetes mellitus without complications Status: Acute Assessment and Plan: Continue with meal insulin sliding scale Patient states that he has discontinued taking Lantus as per his discussion with his senior treasury analyst Continue home dose Neurontin for neuropathy (4) Chronic anticoagulation: Code(s): Z79.01 - residential (current) use of 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 Status: Acute Assessment and Plan: Continue Xarelto (5) Hmmmd-hnqpcd-ugam disease: Code(s): D89.813 - Bomwy-vunnjo-epix disease, unspecified Status: Acute Assessment and Plan: Continue tacrolimus, voriconazolet mycophenolate mofetil and acyclovir (6) Acute myeloblastic leukemia, in remission: Code(s): C92.01 - Acute myeloblastic leukemia, in remission Status: Acute Assessment and Plan: See above Plan DVT prophylaxis -Xarelto Nutrition -heart healthy diet Code Status - Full Code Transfer out of ICU today Subjective Date/time seen: 01/01/23 11:16 No new complaints Exam Narrative: General: Pt is alert awake and in NAD Lungs/Chest: Trachea central overall decreased air entry throughout likely from patient's COPD but no significant wheezing or crackles heard Cardiac: RRR. Normal S1 S2. No murmurs Circulation: Pedal pulses are intact and symmetrical. Abdomen: Normal bowel sounds.. Soft. NT. ND. Extremities: No clubbing, cyanosis or edema. Warm right groin at the site of cardiac catheterization the dressing is slightly bloody but otherwise no bruising tenderness or redness in that area : Llamas in place Neurologic: Follows commands. Moves all 4 extremities PERRL AO x3 Skin: No Rash Objective Data Vital Signs Vital Signs: Vital Signs - 24 hr 12/31/22 12:00 12/31/22 12:00 12/31/22 12:00 Temperature 97.8 F Pulse Rate 73 68 Respiratory Rate 20 Blood Pressure 145/79 H Pulse Oximetry 95 Oxygen Delivery Room Air 12/31/22 14:00 12/31/22 16:00 12/31/22 16:00 Temperature Pulse Rate 69 62 Respiratory Rate Blood Pressure Pulse Oximetry Oxygen Delivery Room Air 12/31/22 18:00 12/31/22 16:00 12/31/22 20:00 Temperature 97.9 F 98 F Pulse Rate 62 69 65 Respiratory Rate 21 H 23 H Blood Pressure 119/75 136/78 Pulse Oximetry 98 97 Oxygen Delivery 12/31/22 20:00 12/31/22 20:00 12/31/22 22:00 Temperature Pulse Rate 70 70 61 Respiratory Rate 23 H Blood Pressure Pulse Oximetry 97 Oxygen Delivery Room Air 01/01/23 00:00 01/01/23 00:00 01/01/23 00:00 Temperature 98.1 F Pulse Rate 61 61 64 Respiratory Rate 23 H 20 Blood Pressure 117/63 Pulse Oximetry 97 95 Oxygen Delivery Room Air 01/01/23 02:05 01/01/23 03:26 01/01/23 04:00 Shaunna
[2023-01-01] MEDS: INSULIN ASPART (*BKC) 100 UNITS/ML SUB-Q (11:43)
[2023-01-01 16:26] LABS: Glucose Point of Care 270 mg/dl (65-105)
== END 2023-01-01 13:50 | disposition home or self-care (01) | DRG 247 ==
LOC: ANHED 20:42 → ANHICU 22:10 → ANHIMU 01-01 10:43 → ANHICU 01-02 15:41 → ANHIMU 01-02 15:41
PROVIDERS: Admitting Provider Internal Medicine; Emergency Provider Emergency Medicine; PCP Internal Medicine; Visit Provider Nurse Practitioner
PROC: 4A023N7 Measurement of Cardiac Sampling and Pressure, Left Heart, Percutaneous Approach (ICD-10-PCS; CPT 93452; principal; 2022-12-30 20:40)
PROC: 4A023N7 Measurement of Cardiac Sampling and Pressure, Left Heart, Percutaneous Approach (ICD-10-PCS; 2022-12-30 20:40)
PROC: 4A023N7 Measurement of Cardiac Sampling and Pressure, Left Heart, Percutaneous Approach (ICD-10-PCS; 2022-12-30 20:40)
DX: I21.3 ST elevation (STEMI) myocardial infarction of unspecified site (principal); C92.01 Acute myeloblastic leukemia, in remission; Z94.84 Stem cells transplant status; J96.11 Chronic respiratory failure with hypoxia; D89.811 Chronic graft-versus-host disease; D84.9 Immunodeficiency, unspecified; E11.42 Type 2 diabetes mellitus with diabetic polyneuropathy; E78.5 Hyperlipidemia, unspecified; F17.210 Nicotine dependence, cigarettes, uncomplicated; F32.9 Major depressive disorder, single episode, unspecified; F41.9 Anxiety disorder, unspecified; J43.9 Emphysema, unspecified; Z99.81 Dependence on supplemental oxygen; Z86.718 Personal history of other venous thrombosis and embolism; Z79.4 Long term (current) use of insulin; Z79.01 Long term (current) use of 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; Z86.711 Personal history of pulmonary embolism; Z86.14 Personal history of Methicillin resistant Staphylococcus aureus infection; Z98.41 Cataract extraction status, right eye; Z98.42 Cataract extraction status, left eye
CPT/HCPCS: 36415; 71045; 80053; 80061; 82948; 83036; 83690; 84443; 84484; 85025; 85610; 85730; 86850; 86900; 86901; 93005; 93458; 94640; 99291; A9270; C1725; C1760; C1769; C1874; C1887; C1894; C8929; C9606; G0269; J1644; J1815; J2250; J2270; J2370; J3010; J7040; J7517; Q9957

== ENCOUNTER 2023-01-24 11:38 | Outpatient (CLI) | payer MEDICARE, MEDICAID, SELFPAY ==
[2023-01-24 20:22] LABS: Basophils Absolute Auto 0.1 K/mm3 (0.0-0.1); Basophils Percent Auto 0.8 % (0.2-1.2); Eosinophils Absolute Auto 0.3 K/mm3 (0-0.3); Eosinophils Percent Auto 2.6 % (0-4.4); Hematocrit 43.6 % (42.0-52.0); Hemoglobin 14.5 g/dL (14.0-18.0); Immature Granulocyte Absolute 0.02 K/mm3 (0.00-0.031); Immature Granulocyte Percent A 0.2 % (0-0.5); Lymphocytes Absolute Auto 4.99 K/mm3 (0.9-3.2); Lymphocytes Percent Auto 45.5 % (18.3-44.2); Mean Corpuscular HGB Conc 33.3 g/dl (32-36); Mean Corpuscular Hemoglobin 35.7 pg (26-34); Mean Corpuscular Volume 107.4 fl (80-100); Mean Platelet Volume 10.3 fl (7.4-10.4); Monocytes Percent Auto 8.7 % (2.6-8.5); Neutrophils Absolute Auto 4.6 K/mm3 (1.3-6.7); Neutrophils Percent Auto 42.2 % (45.5-73.1); Platelet Count Result 302 k/mm3 (150-375); Red Blood Count 4.06 M/mm3 (4.6-6.20); Red Cell Distribution Width 13.6 % (11.5-14.5)
[2023-01-24 20:29] LABS: Alanine Aminotransferase 53 U/L (6-50); Albumin Level 4.5 g/dL (3.5-5.1); Alkaline Phosphatase 154 U/L (38-126); Anion Gap 7 mmol/L (8-16); Aspartate Amino Transferase 79 U/L (17-59); Bilirubin,Total 0.6 mg/dL (0.2-1.3); Blood Urea Nitrogen 21 mg/dL (9-20); Calcium 9.2 mg/dL (8.4-10.2); Carbon Dioxide 29 mmol/L (22-30); Chloride 104 mmol/L (98-107); Estimated Glomerular Filt Rate > 60; Glucose 105 mg/dL (65-110); Potassium 4.9 mmol/L (3.4-5.0); Sodium 140 mmol/L (137-145)
[2023-01-24 20:52] LABS: Prostate Specific Antigen 0.8 ng/mL (< OR = 4.0)
[2023-01-24 20:56] LABS: Anisocytosis 1+ (NORMAL); Macrocytosis 1+ (NORMAL); Platelet Estimate Adequate (Adequate); Schistocytes None Seen (NORMAL); Target Cells 1+ (NORMAL)
== END 2023-01-24 11:39 | disposition home or self-care (01) ==
LOC: ANHGOSHLAB 11:40
PROVIDERS: PCP Internal Medicine; Visit Provider Nurse Practitioner
DX: R74.01 Elevation of levels of liver transaminase levels (principal); Z12.5 Encounter for screening for malignant neoplasm of prostate; D64.9 Anemia, unspecified
CPT/HCPCS: 36415; 80053; 84153; 85025; G0103

== ENCOUNTER 2023-05-13 08:35 | Outpatient (CLI) | payer MEDICARE, MEDICAID, SELFPAY ==
--- NOTE | 2023-05-13 12:53 | WPDSIXMINUTE ---
Six Minute Walk Procedure Procedure Performed Pulmonary Stress Test (6 min walk) Six Minute Walk Six Minute Walk: This is a 6 minute walk test. The test was performed and interpreted in accordance with the 2014 ERS/ATS task force guidelines. Of note the patient used a walker for stability. Findings: The patient's resting room air oxygen saturation measured by pulse oximetry was 94% and heart rate was 72 bpm. Patient ambulated for 305 meters and oxygen saturation remained 93 to 94%. Heart rate at the end of the study was 103 bpm. The patient did not qualify for supplemental oxygen at rest or with ambulation. There are no prior studies for comparison.
== END 2023-05-13 08:36 | disposition home or self-care (01) ==
LOC: ANHPFT 08:36
PROVIDERS: PCP Internal Medicine; Visit Provider Internal Medicine Pulmonary Disease
DX: J44.9 Chronic obstructive pulmonary disease, unspecified (principal)
CPT/HCPCS: 94618

== ENCOUNTER 2023-07-11 11:00 | Outpatient (RCR) | payer MEDICARE, MEDICAID, SELFPAY ==
[2023-07-01 12:29] LABS: Glucose Point of Care 94 mg/dl (65-105)
== END 2023-07-25 11:11 | disposition home or self-care (01) ==
LOC: ANHCPREHAB 11:00
PROVIDERS: PCP Internal Medicine; Visit Provider Internal Medicine Cardiovascular Disease
DX: Z95.5 Presence of coronary angioplasty implant and graft (principal)
CPT/HCPCS: 93798

== ENCOUNTER 2023-07-26 10:51 | Emergency (ER) | payer MEDICARE, MEDICAID, SELFPAY ==
[2023-07-26] VITALS (20 sets, daily range): BP systolic 101–144; BP diastolic 63–85; PULSE 57–80; RESP 10–18; TEMP 36.3; O2SAT 95–100
--- NOTE | ~2023-07-26 | XR_ITS ---
EXAMINATION: XR chest 2V DATE: 07/26/2023 12:55 INDICATION: Shortness of breath. TECHNIQUE: Frontal and lateral views of the chest were obtained. COMPARISON: Chest single view 12/30/2022, CT abdomen and pelvis 11/27/2021, chest CT 07/14/2018 FINDINGS: The lungs are hyperexpanded, consistent with emphysema. There is mild scarring at the lung bases and in right upper lobe. Again seen is atelectasis in right middle lobe. No pleural effusion or pneumothorax. The heart size is normal. IMPRESSION: 1. Emphysema. 2. Mild scarring at the lung bases and in right upper lobe. 3. Atelectasis again seen in right middle lobe. Reviewed, dictated and finalized at location A.
--- NOTE | 2023-07-26 11:35 | ECG_ITS ---
Measurements Intervals [place] Rate: 73 P: 82 [place]: 130 QRS: 86 QRSD: 98 T: 95 QT: 399 QTc: 441 Interpretive Statements SINUS RHYTHM POSSIBLE LEFT ATRIAL ENLARGEMENT BORDERLINE R WAVE PROGRESSION, ANTERIOR LEADS BORDERLINE T WAVE ABNORMALITY- HIGH LATERAL LEADS BASELINE WANDER- V6 BORDERLINE ECG COMPARED TO ECG 12/30/2022 22:29:44 SINUS RHYTHM NOW PRESENT Electronically Signed On 07-26-2023 11:45:59 CDT by Cal Carranza D.O.
[2023-07-26 11:55] LABS: Basophils Absolute Auto 0.1 K/mm3 (0.0-0.1); Basophils Percent Auto 0.8 % (0.2-1.2); Hematocrit 43.7 % (42.0-52.0); Hemoglobin 14.6 g/dL (14.0-18.0); Immature Granulocyte Absolute 0.03 K/mm3 (0.00-0.031); Immature Granulocyte Percent A 0.5 % (0-0.5); Lymphocytes Absolute Auto 2.45 K/mm3 (0.9-3.2); Lymphocytes Percent Auto 40.1 % (18.3-44.2); Mean Corpuscular HGB Conc 33.4 g/dl (32-36); Mean Corpuscular Volume 104.8 fl (80-100); Monocytes Absolute Auto 0.4 K/mm3 (0.1-0.6); Monocytes Percent Auto 6.7 % (2.6-8.5); Neutrophils Absolute Auto 3.2 K/mm3 (1.3-6.7); Neutrophils Percent Auto 51.9 % (45.5-73.1); Platelet Count Result 287 k/mm3 (150-375); Red Blood Count 4.17 M/mm3 (4.6-6.20); White Blood Count 6.1 K/mm3 (4.5-10.0)
[2023-07-26 12:08] LABS: Alanine Aminotransferase 75 U/L (6-50); Albumin Level 4.2 g/dL (3.5-5.1); Alkaline Phosphatase 286 U/L (38-126); Anion Gap 7 mmol/L (8-16); Aspartate Amino Transferase 127 U/L (17-59); Bilirubin,Total 0.6 mg/dL (0.2-1.3); Blood Urea Nitrogen 18 mg/dL (9-20); Calcium 8.7 mg/dL (8.4-10.2); Carbon Dioxide 29 mmol/L (22-30); Chloride 97 mmol/L (98-107); Estimated Glomerular Filt Rate > 60; Glucose 159 mg/dL (65-110); Potassium 4.3 mmol/L (3.4-5.0); Sodium 133 mmol/L (137-145)
[2023-07-26] MEDS: IPRATROPIUM BR 0.02% INH SOLN 0.5 MG/2.5 ML VIAL INHALATION (12:20)
[2023-07-26] MEDS: ALBUTEROL SULFATE NEB 2.5 MG/3 ML INH INHALATION (12:21)
--- NOTE | 2023-07-26 12:40 | ED.GENADULT ---
HPI - General Adult General Chief complaint: Shortness of Breath/Dyspnea Stated complaint: shortness of breath - COPD on O2 Time Seen by Provider: 07/26/23 12:01 History of Present Illness HPI narrative: Patient is a 57-year-old male who presents ER with shortness of breath. Began last night. Used albuterol to improve his symptoms but he is currently out. No runny nose or sore throat or productive cough. No fevers or chills. No chest pain or chest pressure. Reports he wears oxygen chronically. Currently not wearing O2 and satting 95-100% on RA. No known sick contacts. No additional concerns. Has increased short of breath with exertion but has portable oxygen. Related Data Home Medications Medication Instructions Recorded Confirmed montelukast 10 mg tablet 10 mg PO HS 09/17/19 07/18/23 (Singulair) gabapentin 300 mg capsule 300 mg PO QID PRN muscle spasms 12/25/21 07/18/23 (Neurontin) acyclovir 400 mg tablet 400 mg PO Q12H 01/01/22 07/18/23 furosemide 20 mg tablet 10 - 20 mg PO QAM PRN Shortness Of 01/01/22 07/18/23 Breath mycophenolate mofetil 500 mg tablet 500 mg PO Q12H 01/01/22 07/18/23 tacrolimus 0.5 mg capsule, 0.5 mg PO EVERY OTHER DAY 01/01/22 07/18/23 immediate-release (Prograf) voriconazole 200 mg tablet 200 mg PO Q12H 01/01/22 07/18/23 albuterol sulfate 2.5 mg/3 mL See Rx Instructions .Route 12/30/22 07/18/23 (0.083 %) solution for nebulization .COMPLEX PRN Shortness Of Breath fluticasone fur. 100 mcg-umeclid 1 inh inhalation DAILY 12/30/22 07/18/23 62.5 mcg-vilant 25 mcg inhalat.powder (Trelegy Ellipta) insulin lispro 100 unit/mL 5 - 10 unit subcut TIDWM 12/31/22 07/18/23 subcutaneous pen (Humalog KwikPen (U-100) Insulin) rivaroxaban 20 mg tablet (Xarelto) 20 mg PO QPM 02/06/23 07/18/23 Allergies Allergy/AdvReac Type Severity Reaction Status Date / Time adhesive Allergy Unknown Hives Verified 07/26/23 10:51 adhesive tape AdvReac Mild REDNESS Verified 07/26/23 10:51 AND IRRITATION Review of Systems Review of Systems: All systems reviewed & are unremarkable except as noted in HPI and below Constitutional: Constitutional: Denies chills, Denies fatigue and Denies fever(s) ENT: Denies nasal congestion and Denies sore throat Cardiovascular: Cardiovascular: Denies chest pain, Denies rapid heart rate and Denies radiating jaw, neck or arm pain Respiratory: Respiratory: Denies cough, Reports dyspnea and Denies wheezing Gastrointestinal: Gastrointestinal: Denies abdominal pain, Denies diarrhea, Denies nausea and Denies vomiting Genitourinary: Genitourinary: Reports no additional male genitourinary complaints Musculoskeletal: Musculoskeletal: Reports no additional musculoskeletal complaints [facility] Past Medical History Medical History Acute myeloid leukemia 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 Anxiety Chronic anticoagulation Chronic obstructive pulmonary disease Chronic respiratory failure with hypoxia On 5 liters nasal cannula at nighttime. Deep venous thrombosis Depression Eczema Emphysema/COPD Hyperglycemia Hyperlipidemia Immunocompromised patient Patient on anti rejection medications. 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
== END 2023-07-26 14:13 | disposition home or self-care (01) ==
PROVIDERS: General Practice; Emergency Provider Emergency Medicine; PCP Internal Medicine
DX: J43.9 Emphysema, unspecified (principal); J96.11 Chronic respiratory failure with hypoxia; C92.00 Acute myeloblastic leukemia, not having achieved remission; D89.811 Chronic graft-versus-host disease; E11.42 Type 2 diabetes mellitus with diabetic polyneuropathy; E78.5 Hyperlipidemia, unspecified; N48.6 Induration penis plastica; Z94.81 Bone marrow transplant status; Z99.81 Dependence on supplemental oxygen; Z86.711 Personal history of pulmonary embolism; Z86.718 Personal history of other venous thrombosis and embolism; Z79.4 Long term (current) use of insulin; Z79.01 Long term (current) use of 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; Z79.02 Long term (current) use of antithrombotics/antiplatelets; R94.31 Abnormal electrocardiogram [ECG] [EKG]
CPT/HCPCS: 36415; 71046; 80053; 85025; 93005; 94640; 99283

== ENCOUNTER 2023-08-03 20:33 | Emergency (ER) | payer MEDICARE, MEDICAID, SELFPAY ==
[2023-08-03] VITALS (8 sets, daily range): BP systolic 157–188; BP diastolic 76–98; PULSE 60–80; RESP 15–22; TEMP 36.8; O2SAT 98–100
--- NOTE | ~2023-08-03 | CT_ITS ---
EXAMINATION: CT abdomen pelvis w con DATE: 08/04/2023 00:41 INDICATION: Upper abdominal pain. Nausea and vomiting. TECHNIQUE: Computed tomography (CT) of the abdomen and pelvis was performed with 100 mL Omnipaque 350 intravenous contrast. Automated exposure control and iterative reconstruction technique were employe d. The dose-length product was 303.54 mGy-cm. COMPARISON: CT abdomen and pelvis 11/27/21, 11/23/17 FINDINGS: The visualized portions of the lung bases demonstrate emphysema and chronic lung disease. T here are peripheral airspace opacities in the lower lobes. No pleural effusion. There is wall thicken ing of distal esophagus. The heart size is normal. There are coronary artery calcifications. No peric ardial effusion. The liver is normal. The gallbladder is absent. There is a 3.8 x 1.6 cm hypodense ma ss at the tail of the pancreas that measured 4.8 x 1.5 cm on 11/23/2017. There is a 1.8 x 1.1 cm hypode nse mass with hyperdense periphery adjacent to the head of the pancreas that measured 2.2 x 1.4 cm on 11/23/2017. The adrenal glands are normal. There is cortical thinning in the kidneys. There is a 5 mm cyst in left kidney. There is an umbilical hernia containing fat. There is calcified atherosclerosis of the aorta and many of the other arteries. There are no dilated loops of bowel. There is diverticul osis of the colon without evidence of diverticulitis. The appendix is normal. There are no pathologic ally enlarged lymph nodes. There is no free intraperitoneal fluid. There is severe lower lumbar spond ylosis. There is a benign bone island in L4 vertebral body. IMPRESSION: 1. Wall thickening of the distal esophagus, likely esophagitis. 2. Peripheral airspace opacities in the lower lobes, likely pneumonia. 3. Emphysema. 4. Umbilical hernia containing fat. 5. Peripancreatic masses with improvement from 11/23/2017, which may be chronic pancreatitis or treated malignancy (such as lymphoma if the patient has that clinical history). Reviewed, dictated and finalized at location E. IMPRESSION: 1. Wall thickening of the distal esophagus, likely esophagitis. 2. Peripheral airspace opacities in the lower lobes, likely pneumonia. 3. Emphysema. 4. Umbilical hernia containing fat. 5. Peripancreatic masses with improvement from 11/23/2017, which may be chronic p ancreatitis or treated malignancy (such as lymphoma if the patient has that cli nical history).
[2023-08-03 20:52] LABS: Basophils Percent Auto 0.5 % (0.2-1.2); Eosinophils Absolute Auto 0.1 K/mm3 (0-0.3); Hematocrit 40.3 % (42.0-52.0); Hemoglobin 14.2 g/dL (14.0-18.0); Immature Granulocyte Absolute 0.08 K/mm3 (0.00-0.031); Immature Granulocyte Percent A 1.3 % (0-0.5); Lymphocytes Percent Auto 38.6 % (18.3-44.2); Mean Corpuscular HGB Conc 35.2 g/dl (32-36); Mean Corpuscular Hemoglobin 35.1 pg (26-34); Mean Corpuscular Volume 99.5 fl (80-100); Mean Platelet Volume 11.9 fl (7.4-10.4); Monocytes Absolute Auto 0.2 K/mm3 (0.1-0.6); Monocytes Percent Auto 3.5 % (2.6-8.5); Neutrophils Absolute Auto 3.2 K/mm3 (1.3-6.7); Neutrophils Percent Auto 54.1 % (45.5-73.1); Nucleated Red Blood Cells Absolute Auto 0.1 K/mm3 (0.0-0.012); Nucleated Red Blood Cells Perc 1.2 % (0.0-0.2); Platelet Count Result 122 k/mm3 (150-375); Red Blood Count 4.05 M/mm3 (4.6-6.20); Red Cell Distribution Width 15.2 % (11.5-14.5)
[2023-08-03 21:02] LABS: Alanine Aminotransferase 85 U/L (6-50); Albumin Level 3.7 g/dL (3.5-5.1); Alkaline Phosphatase 466 U/L (38-126); Anion Gap 3 mmol/L (8-16); Aspartate Amino Transferase 56 U/L (17-59); Blood Urea Nitrogen 21 mg/dL (9-20); Calcium 8.8 mg/dL (8.4-10.2); Carbon Dioxide 34 mmol/L (22-30); Chloride 98 mmol/L (98-107); Estimated CRCL calculation 128 ml/min; Estimated Glomerular Filt Rate > 60; Glucose 328 mg/dL (65-110); Lipase 45 U/L (23-300); Potassium 4.5 mmol/L (3.4-5.0); Sodium 135 mmol/L (137-145)
[2023-08-04 00:01] VITALS: BP 173/92; PULSE 71; RESP 21; O2SAT 100
[2023-08-04] MEDS: BELLADONNA ALK/PHENOB ELIX 10 ML, MAG HYDROX/ALUMINUM HYD/SIMETH 30 ML, LIDOCAINE HCL 2... PO (00:15)
[2023-08-04] MEDS: MORPHINE SULFATE (*CRX) 2 MG/ML INJ IV PUSH (00:15)
[2023-08-04] MEDS: SODIUM CHLORIDE 0.9% IV 1,000 ML 999 ML IV CONT (00:15)
[2023-08-04] MEDS: ONDANSETRON INJ 4 MG/2 ML VIAL IV PUSH (00:15)
--- NOTE | 2023-08-04 00:20 | ED.NAVMDI ---
HPI - Nausea/Vomiting/Diarrhea General Chief complaint: Nausea/Vomiting/Diarrhea Stated complaint: Fever, nausea Time Seen by Provider: 08/03/23 23:01 Source: patient and old records reviewed Mode of arrival: ambulatory Limitations: no limitations History of Present Illness HPI Narrative: Patient is a 57-year-old male who presents to the ED with report of nausea and vomiting, upper abdominal pain. Patient reports he developed upper abdominal pain several hours ago. He states he feels extremely full. He began feeling nauseous and had several episodes of emesis, but states the fullness sensation has persisted. He has not tried anything for pain. He does still feel nauseous currently. He also reports increased belching, denies diarrhea, constipation, fevers, chest pain, shortness of breath. He does report having a fever several days ago, but none today. Patient chronically wears 5 L nasal cannula with exertion and at night. He denies worsening of this recently. He was recently seen in our facility for a COPD exacerbation and is currently on steroids. He has had a cough. Related Data Home Medications Medication Instructions Recorded Confirmed montelukast 10 mg tablet 10 mg PO HS 09/17/19 07/18/23 (Singulair) gabapentin 300 mg capsule 300 mg PO QID PRN muscle spasms 12/25/21 07/18/23 (Neurontin) acyclovir 400 mg tablet 400 mg PO Q12H 01/01/22 07/18/23 furosemide 20 mg tablet 10 - 20 mg PO QAM PRN Shortness Of 01/01/22 07/18/23 Breath mycophenolate mofetil 500 mg tablet 500 mg PO Q12H 01/01/22 07/18/23 tacrolimus 0.5 mg capsule, 0.5 mg PO EVERY OTHER DAY 01/01/22 07/18/23 immediate-release (Prograf) voriconazole 200 mg tablet 200 mg PO Q12H 01/01/22 07/18/23 albuterol sulfate 2.5 mg/3 mL See Rx Instructions .Route 12/30/22 07/18/23 (0.083 %) solution for nebulization .COMPLEX PRN Shortness Of Breath fluticasone fur. 100 mcg-umeclid 1 inh inhalation DAILY 12/30/22 07/18/23 62.5 mcg-vilant 25 mcg inhalat.powder (Trelegy Ellipta) insulin lispro 100 unit/mL 5 - 10 unit subcut TIDWM 12/31/22 07/18/23 subcutaneous pen (Humalog KwikPen (U-100) Insulin) rivaroxaban 20 mg tablet (Xarelto) 20 mg PO QPM 02/06/23 07/18/23 Allergies Allergy/AdvReac Type Severity Reaction Status Date / Time adhesive Allergy Unknown Hives Verified 07/26/23 10:51 adhesive tape AdvReac Mild REDNESS Verified 07/26/23 10:51 AND IRRITATION Review of Systems Review of Systems: CONSTITUTIONAL: Denies fever, chills, or sweats. CARDIOVASCULAR: Denies chest pain. RESPIRATORY: See HPI. GASTROINTESTINAL: See HPI. GENITOURINARY: Denies dysuria or hematuria. SKIN: Denies rash or itching. MUSCULOSKELETAL: Denies back pain, joint pain, or myalgia. NEUROLOGIC: Denies headache, numbness, or weakness. 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 Anxiety Chronic anticoagulation Chronic obstructive pulmonary disease Chronic respiratory failure with hypoxia On 5 liters nasal cannula at nighttime. Deep venous thrombosis Depression Eczema Emphysema/COPD Hyperglycemia Hyperlipidemia Immunocompromised patient Patient on anti rejection medications. 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
[2023-08-04 00:45] VITALS: BP 179/90; PULSE 78; RESP 20; O2SAT 100
[2023-08-04 00:54] LABS: Appearance Urine Clear (Clear); Bacteria Urine None Seen /hpf; Bilirubin Urine Negative (Negative); Blood Urine Negative (Negative); Color Urine Yellow (Yellow); Glucose Urine UA 3+ mg/dL (Negative); Ketones Urine Trace mg/dL (Negative); Leukocyte Esterase Ur Negative LEU/UL (Negative); Nitrate Urine Negative (Negative); Non Pathogenic Casts 0-2; Protein Urine 1+ mg/dL (Negative); RBC Urine 0-2 /hpf (0-2); Specific Grav Ur 1.029 (1.001-1.035); Squamous Epithelial Cell Urine None seen /hpf (Few); WBC Urine 0-5 /hpf; pH Urine 6.5 (5.0-9.0)
[2023-08-04 01:01] VITALS: BP 183/94; PULSE 81; RESP 16; O2SAT 100
[2023-08-04 01:15] LABS: Add Urine Microscopic? YES
[2023-08-04 01:59] VITALS: BP 140/84; PULSE 89; RESP 21; O2SAT 99
== END 2023-08-04 02:07 | disposition home or self-care (01) ==
PROVIDERS: Emergency Medicine; Emergency Provider Physician Assistant; PCP Internal Medicine
DX: J18.9 Pneumonia, unspecified organism (principal); E11.65 Type 2 diabetes mellitus with hyperglycemia; R11.2 Nausea with vomiting, unspecified; K20.90 Esophagitis, unspecified without bleeding; J96.11 Chronic respiratory failure with hypoxia; Z99.81 Dependence on supplemental oxygen; F17.210 Nicotine dependence, cigarettes, uncomplicated; F41.9 Anxiety disorder, unspecified; F32.A Depression, unspecified; Z79.4 Long term (current) use of insulin; J44.9 Chronic obstructive pulmonary disease, unspecified
CPT/HCPCS: 36415; 74177; 80053; 81001; 83690; 85025; 96361; 96374; 96375; 99284; A9270; J2270; J2405; J7030; Q9967

== ENCOUNTER 2023-08-15 10:03 | Outpatient (CLI) | payer MEDICARE, MEDICAID, SELFPAY ==
--- NOTE | ~2023-08-15 | CT_ITS ---
CT Scan of the Chest without Contrast: Clinical Indication: Lung cancer screening, personal history of nicotine dependence Technique: Contiguous sections were acquired throughout the chest without intravenous contrast. Dose reduction technique was used on this scan by utilizing automated exposure control and iterative recon struction technique. The dose-length product (DLP) was 73.18 mGy-cm. Findings: There is no evidence of any significant mediastinal, hilar or axillary lymphadenopathy. The mediastin al soft tissues appear normal. There is no evidence of pleural or pericardial effusion. There is advanced emphysema with right apical scarring. There is a 6 mm somewhat spiculated right upp er lobe nodule (axial image 64, sagittal image 37). There is a 6 mm right lower lobe pulmonary nodule (axial image 113). There are peripheral somewhat interstitial opacities at the right lung base. Ther e is probable left basilar focal scarring or atelectasis. There is a 4 mm left basilar pulmonary nodu le. There is a 7 mm left upper lobe pulmonary nodule (axial image 45). Images through the upper abdomen reveal no abnormalities. Impression: Lung RADS 3: Probably benign. Six-month follow-up screening CT advised. Advanced emphysema with biapical scarring. Reviewed, dictated and finalized at location . Impression: Lung RADS 3: Probably benign. Six-month follow-up screening CT advised. Advanced emphysema with biapical scarring.
--- NOTE | 2023-08-15 12:21 | WPDPFTINT ---
PFT Procedure Performed PFT Procedure Performed Spirometry with Pre/Post Bronchodilator Plethysmography (Lung Vol) Diffusing Cap (DLCO) Flow Vol Loop PFT Interpretation This is a pulmonary function test with pre and post-bronchodilator spirometry, plethysmography and diffusing capacity. The test was performed and results interpreted in accordance with the 2019 and 2005 ATS/ERS Task Force guidelines respectively using the Global Lung Function Initiative-2012 reference equations. Patient demonstrated good effort and cooperation. Reproducibility criteria were met. The quality of the pre bronchodilator spirometry maneuver was Grade A and post bronchodilator spirometry maneuver was Grade A. Of note, patient was only able to perform 1 plethysmography maneuver despite 3 attempts in good coaching. Findings: Spirometry: There is decreased maximal expiratory airflow at all lung volumes with concave expiratory flow tracing. The contour the inspiratory flow tracing is normal. The pre bronchodilator FVC is 3.62 L, 75% predicted. The pre bronchodilator FEV1 is 1.32 L, 35% predicted. The pre bronchodilator FEV1: FVC ratio is 36%. The post bronchodilator FVC is 3.90 L, representing an 8% increase. The post bronchodilator FEV1 is 1.32 L, representing no change. The post bronchodilator FEV1: FVC ratio is 34%. Plethysmography: The total lung capacity is 10.39 L, 148% predicted. The functional residual capacity is 7.47 L, 207% predicted. The residual volume is 6.77 L, 313% predicted. Diffusing capacity: The diffusing capacity unadjusted for hemoglobin and carboxyhemoglobin is 10.5, 36% predicted. The diffusing capacity adjusted for alveolar volume is 1.96, 45% predicted. In comparison to previous pulmonary function testing performed on 06/12/2021 the post bronchodilator FVC is unchanged from 3.95 L to 3.90 L. The post bronchodilator FEV1 is unchanged from 1.29 L to 1.32 L. The total lung capacity is increased from 7.80 L to 10.39 L. The functional residual capacity is unchanged from 6.76 L to 7.47 L. The residual volume is increased from 3.51 L to 6.77 L. The diffusing capacity unadjusted for hemoglobin and carboxyhemoglobin is increased from 8.9 to 10.5. The diffusing capacity adjusted for alveolar volume is unchanged from 1.80 to 1.96. Impression: There is a severe obstructive abnormality without significant improvement after inhaling a single dose of albuterol. The increase in residual volume is consistent with air trapping from an obstructive abnormality. Hyperinflation is present as demonstrated by the increase in functional residual capacity and total lung capacity and is consistent with an obstructive abnormality. The diffusing capacity unadjusted for hemoglobin and carboxyhemoglobin is severely decreased and remains moderately decreased when adjusted for alveolar volume. In comparison to previous pulmonary function testing on 06/12/2021 there has been a greater than anticipated time dependent increase in the total lung capacity, residual volume and diffusing capacity unadjusted for hemoglobin and carboxyhemoglobin with no significant change in the FVC, FEV1, functional residual capacity and diffusing capacity adjusted for alveolar volume. Clinical correlation is recommended.
== END 2023-08-15 10:04 | disposition home or self-care (01) ==
PROVIDERS: PCP Internal Medicine; Visit Provider Internal Medicine Pulmonary Disease
DX: Z12.2 Encounter for screening for malignant neoplasm of respiratory organs (principal); J43.9 Emphysema, unspecified; Z87.891 Personal history of nicotine dependence
CPT/HCPCS: 71271; 94060; 94726; 94729

== ENCOUNTER 2023-09-22 02:28 | Emergency (ER) | payer MEDICARE, MEDICAID, SELFPAY ==
--- NOTE | ~2023-09-22 | XR_ITS ---
EXAMINATION: XR chest 2V DATE: 09/22/2023 03:21 INDICATION: Shortness of breath TECHNIQUE: Frontal and lateral views of the chest are obtained COMPARISON: 07/26/2023 FINDINGS: The lungs are free of acute opacities. There is chronic atelectasis of the right middle lob e. Lucencies in the upper lung zones are consistent with emphysema. No pleural effusion or pneumothor ax. The cardiomediastinal silhouette is normal. The visualized bones and soft tissues are unremarkabl e. IMPRESSION: 1. No acute cardiopulmonary abnormality. Reviewed, dictated and finalized at location F. RANCE POLICY ISSUE CLERK
[2023-09-22 02:29] VITALS: BP 137/91; PULSE 105; RESP 22; O2SAT 96
--- NOTE | 2023-09-22 02:39 | ECG_ITS ---
Measurements Intervals [place] Rate: 104 P: 73 UT: 145 QRS: 94 QRSD: 96 T: 65 QT: 342 QTc: 450 Interpretive Statements SINUS TACHYCARDIA RIGHT AXIS DEVIATION BORDERLINE R WAVE PROGRESSION, ANTERIOR LEADS BASELINE ARTIFACT- I, II, III, AVR, AVL, V1 BORDERLINE ECG COMPARED TO ECG 07/26/2023 11:36:55 SINUS TACHYCARDIA NOW PRESENT Electronically Signed On 09-22-2023 6:53:38 BUS AND TROLLEY DISPATCHER by Cal Carranza D.O.
[2023-09-22] MEDS: ALBUTEROL SULFATE NEB 2.5 MG/3 ML INH INHALATION (02:45)
[2023-09-22] MEDS: IPRATROPIUM BR 0.02% INH SOLN 0.5 MG/2.5 ML VIAL INHALATION (02:45)
[2023-09-22 02:46] VITALS: PULSE 98; RESP 13
[2023-09-22 02:52] LABS: Basophils Absolute Auto 0.1 K/mm3 (0.0-0.1); Basophils Percent Auto 0.5 % (0.2-1.2); Eosinophils Absolute Auto 0.4 K/mm3 (0-0.3); Eosinophils Percent Auto 2.7 % (0-4.4); Hematocrit 36.9 % (42.0-52.0); Hemoglobin 11.9 g/dL (14.0-18.0); Immature Granulocyte Absolute 0.02 K/mm3 (0.00-0.031); Immature Granulocyte Percent A 0.2 % (0-0.5); Lymphocytes Absolute Auto 8.18 K/mm3 (0.9-3.2); Mean Corpuscular HGB Conc 32.2 g/dl (32-36); Mean Corpuscular Hemoglobin 35.2 pg (26-34); Mean Corpuscular Volume 109.2 fl (80-100); Mean Platelet Volume 9.6 fl (7.4-10.4); Monocytes Absolute Auto 1.2 K/mm3 (0.1-0.6); Monocytes Percent Auto 8.8 % (2.6-8.5); Neutrophils Absolute Auto 3.4 K/mm3 (1.3-6.7); Neutrophils Percent Auto 25.8 % (45.5-73.1); Nucleated Red Blood Cells Perc 0.2 % (0.0-0.2); Platelet Count Result 387 k/mm3 (150-375); Red Blood Count 3.38 M/mm3 (4.6-6.20); Red Cell Distribution Width 15.6 % (11.5-14.5); White Blood Count 13.2 K/mm3 (4.5-10.0)
--- NOTE | 2023-09-22 02:57 | ED.SOB ---
HPI - SOB/Dyspnea General Chief Complaint: Shortness of Breath/Dyspnea Stated Complaint: resp distress Time Seen by Provider: 09/22/23 02:45 History of Present Illness HPI Narrative: Patient is a 57-year-old male with history of COPD, on 3 L of oxygen at night, CAD, PE on Xarelto here with shortness of breath. Patient states that he felt well yesterday. Overnight tonight he woke up and felt sudden onset of worsened shortness of breath and wheezing. He states he ambulated to his living room and turned and oxygen tank up to 10 L and placed it on himself. He noted continued shortness of breath and an ambulance was called by his roommate. He notes that this feels very similar to his prior COPD exacerbations. He does continue to occasionally smoke cigarettes. He denies any associated chest pain. He has not missed any doses of his Xarelto. He denies any cough, congestion, fever, chills. No sick contacts. He has never been intubated for COPD in the past but he has been hospitalized. EMS started him on a continuous albuterol nebulizer and brought him into the emergency department. Related Data Home Medications Medication Instructions Recorded Confirmed montelukast 10 mg tablet 10 mg PO HS 09/17/19 07/18/23 (Singulair) gabapentin 300 mg capsule 300 mg PO QID PRN muscle spasms 12/25/21 07/18/23 (Neurontin) acyclovir 400 mg tablet 400 mg PO Q12H 01/01/22 07/18/23 furosemide 20 mg tablet 10 - 20 mg PO QAM PRN Shortness Of 01/01/22 07/18/23 Breath mycophenolate mofetil 500 mg tablet 500 mg PO Q12H 01/01/22 07/18/23 tacrolimus 0.5 mg capsule, 0.5 mg PO EVERY OTHER DAY 01/01/22 07/18/23 immediate-release (Prograf) voriconazole 200 mg tablet 200 mg PO Q12H 01/01/22 07/18/23 albuterol sulfate 2.5 mg/3 mL See Rx Instructions .Route 12/30/22 07/18/23 (0.083 %) solution for nebulization .COMPLEX PRN Shortness Of Breath fluticasone fur. 100 mcg-umeclid 1 inh inhalation DAILY 12/30/22 07/18/23 62.5 mcg-vilant 25 mcg inhalat.powder (Trelegy Ellipta) insulin lispro 100 unit/mL 5 - 10 unit subcut TIDWM 12/31/22 07/18/23 subcutaneous pen (Humalog KwikPen (U-100) Insulin) rivaroxaban 20 mg tablet (Xarelto) 20 mg PO QPM 02/06/23 07/18/23 Allergies Allergy/AdvReac Type Severity Reaction Status Date / Time adhesive Allergy Unknown Hives Verified 07/26/23 10:51 adhesive tape AdvReac Mild REDNESS Verified 07/26/23 10:51 AND IRRITATION Review of Systems Review of Systems: All systems reviewed & are unremarkable except as noted in HPI and below PMFSH Past Medical History Medical History 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 Anxiety Chronic anticoagulation Chronic obstructive pulmonary disease Chronic respiratory failure with hypoxia On 5 liters nasal cannula at nighttime. Deep venous thrombosis Depression Eczema Emphysema/COPD Hyperglycemia Hyperlipidemia Immunocompromised patient Patient on anti rejection medications. Infectious disease of immune system Insulin dependent type 2 diabetes mellitus Peripheral neuropathy Peyronie's disease Positive nasal culture for methicillin resistant Staphylococcus aureus Pulmonary emboli Sciatica Surgical History Surgical History History of bilateral cataract extraction History of orthopedic surgery Left tibia liz placement History of stem cell transplant Family History Family History Mother Acute myocardial infarction Father COPD (chronic obstructive pulmonary disease) Diabetes mellitus Alcohol abuse Social History Social History (Updated 07/18/23 @ 10:38 by Viv Akers MA) Social History: Surrogate medical decision maker: Lissy Kaiser, friend/roommate. Code status: Full code. Ye
[2023-09-22 02:58] VITALS: PULSE 96; RESP 20
[2023-09-22 03:16] LABS: Alanine Aminotransferase 16 U/L (6-50); Albumin Level 3.7 g/dL (3.5-5.1); Alkaline Phosphatase 127 U/L (38-126); Anion Gap 7 mmol/L (8-16); Aspartate Amino Transferase 27 U/L (17-59); Bilirubin,Total 0.5 mg/dL (0.2-1.3); Blood Urea Nitrogen 11 mg/dL (9-20); Calcium 8.4 mg/dL (8.4-10.2); Carbon Dioxide 28 mmol/L (22-30); Chloride 105 mmol/L (98-107); Estimated CRCL calculation 98 ml/min; Estimated Glomerular Filt Rate > 60; Glucose 156 mg/dL (65-110); Sodium 140 mmol/L (137-145)
[2023-09-22] MEDS: methylPREDNISolone SOD SUCC 125 MG VIAL IV PUSH (03:31)
[2023-09-22 03:34] VITALS: BP 142/84; PULSE 91; RESP 16; O2SAT 94
[2023-09-22 03:38] VITALS: O2SAT 95
[2023-09-22 03:40] LABS: Influenza A QL RT-PCR Negative (Negative); Influenza B QL RT-PCR Negative (Negative); RSV RNA, RT-PCR Negative (Negative); SARS-CoV-2 RNA PCR Negative (Negative)
[2023-09-22 04:22] LABS: Troponin I < 0.012 ng/mL (0.000-0.034)
[2023-09-22] MEDS: AMOXICILLIN/CLAVULANATE K 875-125 MG TAB 1 TABLET PO (04:47)
== END 2023-09-22 05:45 | disposition home or self-care (01) ==
PROVIDERS: Emergency Provider Student in an Organized Health Care Education/Training Program; PCP Internal Medicine
DX: J44.1 Chronic obstructive pulmonary disease with (acute) exacerbation (principal); I25.10 Atherosclerotic heart disease of native coronary artery without angina pectoris; E78.5 Hyperlipidemia, unspecified; E11.9 Type 2 diabetes mellitus without complications; F17.210 Nicotine dependence, cigarettes, uncomplicated; Z86.711 Personal history of pulmonary embolism; Z99.81 Dependence on supplemental oxygen; Z20.822 Contact with and (suspected) exposure to COVID-19
CPT/HCPCS: 36415; 71046; 80053; 84484; 85025; 87637; 93005; 94640; 96374; 99284; A9270; J2930

== ENCOUNTER 2023-10-25 07:48 | Outpatient (CLI) | payer MEDICARE, MEDICAID, SELFPAY ==
--- NOTE | 2023-10-29 10:11 | WPDSIXMINUTE ---
Six Minute Walk Procedure Procedure Performed Pulmonary Stress Test (6 min walk) Six Minute Walk Six Minute Walk: DATE OF SERVICE: 10/25/2023 REQUESTING: Dr. Cruz Del Valle REASON FOR TESTING: COPD SIX MINUTE WALK This test was conducted per ATS guidelines. The initial saturation was 96%, and initial heart rate was 81 beats per minute. The patient walked without stopping, completing 1000 ft/304.8 m. The saturation at the end of testing was 93%, and the heart rate was 120 beats per minute. IMPRESSION: This is a normal study. The patient did not require supplemental oxygen with exertion. the patient had sustained tachycardia over 100 beats per minute 5 minutes after resting. Clinical correlation recommended. Halie Khan MD
== END 2023-10-25 07:49 | disposition home or self-care (01) ==
LOC: ANHPFT 07:49
PROVIDERS: PCP Internal Medicine; Visit Provider Internal Medicine Pulmonary Disease
DX: J44.9 Chronic obstructive pulmonary disease, unspecified (principal)
CPT/HCPCS: 94618

== ENCOUNTER 2023-11-14 07:53 | Outpatient (CLI) | payer MEDICARE, MEDICAID, SELFPAY ==
--- NOTE | ~2023-11-14 | CT_ITS ---
EXAMINATION:CT diagnostic chest wo con DATE: 11/14/2023 08:18 INDICATION: Solitary pulmonary nodule. TECHNIQUE: Computed tomography (CT) of the chest was performed without intravenous contrast. Automate d exposure control and iterative reconstruction technique were employed. The dose-length product (DLP ) was 96.76 mGy-cm. COMPARISON: Chest CT 08/15/2023, 04/03/22 FINDINGS: There is severe emphysema. There are new peripheral airspace opacities in right lower lobe. There is chronic collapse of right middle lobe. There are worsened peripheral airspace opacities in right upper lobe with volume loss. There are a few scattered nodules in the lungs measuring up to 6 m m in left upper lobe. Many of these nodules are new. There is mild bronchiectasis in the upper lungs. No pleural effusion. The heart size is normal. There are coronary artery calcifications. There is a chronic small pericardial effusion. There are changes of cholecystectomy. There is mild thoracic spon dylosis. IMPRESSION: 1. Mild multifocal pneumonia. 2. Severe emphysema. Reviewed, dictated and finalized at location A. OR APPLICATION SOFTWARE ENGINEER
== END 2023-11-14 07:54 | disposition home or self-care (01) ==
PROVIDERS: PCP Internal Medicine; Visit Provider Internal Medicine Pulmonary Disease
DX: J43.9 Emphysema, unspecified (principal); J18.9 Pneumonia, unspecified organism
CPT/HCPCS: 71250

== ENCOUNTER 2024-01-15 18:03 | Inpatient (IN) | payer MEDICARE, MEDICAID, SELFPAY ==
[2024-01-15] VITALS (9 sets, daily range): BP systolic 79–153; BP diastolic 58–86; PULSE 95–131; RESP 16–23; TEMP 36.6; O2SAT 94–100
--- NOTE | ~2024-01-15 | CT_ITS ---
EXAMINATION: CT abdomen pelvis w con DATE: 01/16/2024 10:20 INDICATION: Abdominal pain TECHNIQUE: Computed tomography (CT) of the abdomen and pelvis was performed with 100 mL Omnipaque-350 intravenous contrast. Automated exposure control and iterative reconstruction technique were employe d. The dose-length product was 277.47 mGy-cm. COMPARISON: 08/04/2023 FINDINGS: Severe emphysema in the visualized lower lungs along with scattered mild atelectasis. There are few s mall nodular groundglass opacities in the bilateral lower lobes suspicious for pneumonia. Atelectasis in the visualized portion of the right middle lobe. Small right and trace left pleural effusions. He art size is normal. Atherosclerotic coronary artery calcifications and/or stenting. Minimal pericardi al effusion. Small sliding-type hiatal hernia. There is prominent circumferential low attenuation north matous wall thickening of the distal esophagus consistent with esophagitis. Small region of focal hep atic steatosis along the ligamentum teres. Status post cholecystectomy. Spleen is chronically small. Interval decrease in size of a previously 3.9 x 1.5 cm hypodense lesion along the tail of the pancrea s currently measuring 3.0 x 1.3 cm . Unchanged 1.7 x 1.1 cm hypodense lesion with thin peripheral cur vilinear calcification on the anterior margin of the head of the pancreas. Bilateral adrenal glands a re normal. Small region of mild cortical scarring at both kidneys likely sequela prior infection or i nfarction. There is residual oral contrast material scattered throughout the colon and distal small b owel. No bowel obstruction. There is moderate colonic diverticulosis with a sigmoid and descending co ofelia predominance and without adjacent inflammatory change to suggest diverticulitis. Normal appendix. Excreted oral contrast material within the normal bladder. No free intraperitoneal gas or fluid. No pathologically enlarged abdominal or pelvic lymphadenopathy. Small fat-containing umbilical hernia. M ild lumbar levocurvature with moderate to severe disc height loss at L5-S1 and mild to moderate spond ylosis and more cephalad lumbar and lower thoracic spine. IMPRESSION: 1. Severe emphysema with scattered small nodular and groundglass opacities at the bilateral lung base s with appearance versus patient for pneumonia or aspiration. 2. Small right and trace left pleural effusions. 3. Prominent edematous-appearing wall thickening of the distal esophagus consistent with esophagitis which may relate to reflux given the presence of a small sliding-type hiatal hernia. 4. A couple hypodense peripancreatic lesions, one at the tail the pancreas which is decreased slightl y since the prior study and the second at the head of the pancreas without interval change. Both have been present since 2018 which favors a benign etiology most likely sequela of chronic pancreatitis. 5. Diverticulosis. 6. Small fat-containing umbilical hernia. Reviewed, dictated and finalized at location L. OR TECHNICAL RECRUITER IMPRESSION: 1. Severe emphysema with scattered small nodular and groundglass opacities at t he bilateral lung bases with appearance versus patient for pneumonia or aspirat ion. 2. Small right and trace left pleural effusions. 3. Prominent edematous-appearing wall thickening of the distal esophagus consis tent with esophagitis which may relate to reflux given the presence of a small sliding-type hiatal hernia. 4. A couple hypodense peripancreatic lesions, one at the tail the pancreas whic h is decreased slightly since the prior study and the second at the head of the pancreas without interval change. Both have been present since 2018 which favo rs a benign etiology most likely sequela of chronic pancreatitis. 5. Diverticulosis. 6. Small fat-containing umbilical hernia.
--- NOTE | ~2024-01-15 | XR_ITS ---
EXAMINATION: XR chest 1V portable INDICATION: Hypoxia and shortness of breath TECHNIQUE: Portable AP chest at 1858 hours COMPARISON: 09/22/2023 FINDINGS: There is severe emphysema. There is a 7 mm nodule of the right upper lobe. No pleural effus ion or pneumothorax. The cardiac mediastinal silhouette is normal. IMPRESSION: 1. 7 mm nodule of the right upper lobe. Follow-up with nonemergent CT of the chest is recommended. Reviewed, dictated and finalized at location F. HAUL OR FARM CHARTER BUS DRIVER IMPRESSION: 1. 7 mm nodule of the right upper lobe. Follow-up with nonemergent CT of the ch est is recommended.
--- NOTE | ~2024-01-15 | CT_ITS ---
EXAMINATION: CTA chest PE protocol DATE: 01/15/2024 19:19 INDICATION: Shortness of breath, tachycardia TECHNIQUE: Computed tomography angiography (CTA) of the chest was performed with 100 mL Omnipaque-350 intravenous contrast timed to evaluate the pulmonary arteries. Coronal maximum intensity projection 3D-reconstructions were created by the technologist. The dose-length product (DLP) was 220.67 mGy-cm. Automated exposure control and iterative reconstruction technique were employed. COMPARISON: 11/14/2023 FINDINGS: The pulmonary arteries are well-opacified. No pulmonary embolism is identified. There is se jailyn emphysema. There is chronic collapse of the right middle lobe. There is an area of chronic scarr ing in the right lung apex. There are chronic peripheral airspace opacities laterally in the right lo wer lobe. There multiple new nodular airspace opacities in the upper lobes and left lower lobe. No pl eural effusion or pneumothorax. There is diffuse circumferential wall thickening of the esophagus. Th e heart size is normal. There are no pathologically enlarged thoracic lymph nodes. There is mild thor acic spondylosis. Changes of cholecystectomy are noted. IMPRESSION: 1. Multifocal pneumonia. 2. Severe emphysema. 3. Diffuse wall thickening of the esophagus which could reflect esophagitis. Reviewed, dictated and finalized at location F. GRAILS DEVELOPER
--- NOTE | 2024-01-15 18:05 | ECG_ITS ---
Measurements Intervals [place] Rate: 117 P: 87 SD: 125 QRS: 86 QRSD: 92 T: 84 QT: 340 QTc: 476 Interpretive Statements SINUS TACHYCARDIA POSSIBLE LEFT ATRIAL ENLARGEMENT [-0.1mV P WAVE IN V1/V2] POSSIBLE INFERIOR MYOCARDIAL INFARCTION , PROBABLY OLD [30 ms Q WAVE IN II/aVF] ABNORMAL RHYTHM ECG COMPARED TO ECG 09/22/2023 02:32:39 NO SIGNIFICANT CHANGES Electronically Signed On 01-16-2024 15:37:25 TUBE ROOM CASHIER by Chin La M.D.
--- NOTE | 2024-01-15 18:19 | ED.GENADULT ---
HPI - General Adult General Chief complaint: Shortness of Breath/Dyspnea <Willam Alexander MD - Last Filed: 01/15/24 18:31> Stated complaint: DYSPNEA <Willam Alexander MD - Last Filed: 01/15/24 18:31> Time Seen by Provider: 01/15/24 18:18 <Willam Alexander MD - Last Filed: 01/15/24 18:31> History of Present Illness HPI narrative: patient is a 58-year-old male with history of CHF and leukemia who presents ER with shortness of breath and weakness. Reports he has been feeling short of breath over last 2 days. Today he was unable stand up and walk because he was so short of breath he thought he is going to pass out. Patient has had no dark black stools. Reports he has not taken any of his medications for 2 days but does have history of Xarelto and Plavix use. No chest pain or chest pressure. Reports chronic cough that is unchanged. Patient wears 3 L of oxygen at night but does not require any oxygen when he exerts himself. Patient initial blood pressure is normal around 113 mmHg. He is tachycardic in the 130s. His blood pressure then dropped into the 60s for multiple tests. <Willam Alexander MD - Last Filed: 01/15/24 18:31> Related Data Home medications: Home Medications Medication Instructions Recorded Confirmed montelukast 10 mg tablet 10 mg PO HS 09/17/19 07/18/23 (Singulair) gabapentin 300 mg capsule 300 mg PO QID PRN muscle spasms 12/25/21 07/18/23 (Neurontin) acyclovir 400 mg tablet 400 mg PO Q12H 01/01/22 07/18/23 furosemide 20 mg tablet 10 - 20 mg PO QAM PRN Shortness Of 01/01/22 07/18/23 Breath mycophenolate mofetil 500 mg tablet 500 mg PO Q12H 01/01/22 07/18/23 tacrolimus 0.5 mg capsule, 0.5 mg PO EVERY OTHER DAY 01/01/22 07/18/23 immediate-release (Prograf) voriconazole 200 mg tablet 200 mg PO Q12H 01/01/22 07/18/23 fluticasone fur. 100 mcg-umeclid 1 inh inhalation DAILY 12/30/22 07/18/23 62.5 mcg-vilant 25 mcg inhalat.powder (Trelegy Ellipta) insulin lispro 100 unit/mL 5 - 10 unit subcut TIDWM 12/31/22 07/18/23 subcutaneous pen (Humalog KwikPen (U-100) Insulin) rivaroxaban 20 mg tablet (Xarelto) 20 mg PO QPM 02/06/23 07/18/23 <Willam Alexander MD - Last Filed: 01/15/24 18:31> Allergies/adverse reactions: Allergies Allergy/AdvReac Type Severity Reaction Status Date / Time adhesive Allergy Unknown Hives Verified 07/26/23 10:51 adhesive tape AdvReac Mild REDNESS Verified 07/26/23 10:51 AND IRRITATION <Willam Alexander MD - Last Filed: 01/15/24 18:31> Review of Systems Review of Systems: All systems reviewed & are unremarkable except as noted in HPI and below <Willam Alexander MD - Last Filed: 01/15/24 18:31> Constitutional: Constitutional: Denies chills, Reports fatigue and Denies fever(s) <Willam Alexander MD - Last Filed: 01/15/24 18:31> ENT: Reports system reviewed and no additional complaints, except as documented <Willam Alexander MD - Last Filed: 01/15/24 18:31> Cardiovascular: Cardiovascular: Reports no additional cardiovascular complaints <Willam Alexander MD - Last Filed: 01/15/24 18:31> Respiratory: Respiratory: Reports chest congestion, Reports cough, Reports dyspnea and Denies wheezing <Willam Alexander MD - Last Filed: 01/15/24 18:31> Gastrointestinal: Gastrointestinal: Reports no additional gastrointestinal complaints <Willam Alexander MD - Last Filed: 01/15/24 18:31> Musculoskeletal: Musculoskeletal: Reports no additional musculoskeletal complaints <Willam Alexander MD - Last Filed: 01/15/24 18:31> Integumentary/Breasts: Skin/Breast: Reports system reviewed and no additional complaints, except as docu <Willam Alexander MD - Last Filed: 01/15/24 18:31> PMFSH Past Medical History Medical History: Medical History (Updated 01/15/24 @ 20:28 by Marcos Burkett MD) 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
[2024-01-15] MEDS: SODIUM CHLORIDE 0.9% IV 1,000 ML 999 ML (18:21)
[2024-01-15 18:25] LABS: Hematocrit 37.1 % (42.0-52.0); Hemoglobin 12.4 g/dL (14.0-18.0); Mean Corpuscular HGB Conc 33.4 g/dl (32-36); Mean Corpuscular Hemoglobin 34.5 pg (26-34); Mean Corpuscular Volume 103.3 fl (80-100); Mean Platelet Volume 10.1 fl (7.4-10.4); Platelet Count Result 394 k/mm3 (150-375); Red Blood Count 3.59 M/mm3 (4.6-6.20); Red Cell Distribution Width 13.4 % (11.5-14.5); White Blood Count 21.1 K/mm3 (4.5-10.0)
[2024-01-15 18:35] LABS: Alanine Aminotransferase 59 U/L (6-50); Albumin Level 4.1 g/dL (3.5-5.1); Alkaline Phosphatase 128 U/L (38-126); Anion Gap 10 mmol/L (8-16); Aspartate Amino Transferase 33 U/L (17-59); Bilirubin,Total 0.8 mg/dL (0.2-1.3); Blood Urea Nitrogen 22 mg/dL (9-20); Calcium 12.2 mg/dL (8.4-10.2); Carbon Dioxide 32 mmol/L (22-30); Chloride 85 mmol/L (98-107); Estimated CRCL calculation 76 ml/min; Estimated Glomerular Filt Rate > 60; Glucose 193 mg/dL (65-110); Potassium 3.6 mmol/L (3.4-5.0); Prothrombin Time 13.3 Seconds (11.1-14.7); Sodium 127 mmol/L (137-145)
[2024-01-15 18:36] LABS: Partial Thromboplastin Time 42.2 SECONDS (22.3-36.8)
[2024-01-15 18:44] LABS: Lactic Acid Reflex 3.3 mmol/L (0.7-2.0)
[2024-01-15 18:45] LABS: Troponin I 0.013 ng/mL (0.000-0.034)
[2024-01-15 18:50] LABS: Alveolar/Arterial O2 Gradient 51.8 mmHg; Fractional Inspired Oxygen 21 %; HCO3 ABG 30.7 mEq/l (22.0-26.0); Oxygen Content ABG 15.3 %vol (16.0-22.0); Oxygen Saturation ABG 88.3 % (95.0-100.0); PCO2 ABG 40.3 mmHg (35.0-45.0); PO2 FiO2 Ratio Arterial Blood 2.37 %; Total Hemoglobin 12.7 g/dL (12.0-18.0)
[2024-01-15 18:52] LABS: PO2 ABG 49.7 mmHg (80.0-100.0)
[2024-01-15 18:53] LABS: Device ROOM AIR; Oxyhemoglobin 85.8 % THb (90.0-100.0); Site Drawn RIGHT BRACHIAL
[2024-01-15 18:54] LABS: Band Neutrophils Percent 1 % (0-6); Lymphocytes Absolute Manual 5.27 K/mm3 (1.1-4.5); Monocytes Absolute Manual 1.68 K/mm3 (0.1-0.90); Monocytes Percent Manual 8 % (3-9); Neutrophils Absolute Manual 14.13 K/mm3 (1.3-6.7); Neutrophils Percent Manual 66 % (46-73); Total Cells Counted 100
[2024-01-15 18:55] LABS: Platelet Estimate Increased (Adequate); Schistocytes None Seen (NORMAL)
[2024-01-15 18:56] LABS: Anisocytosis 1+ (NORMAL); Microcytosis 1+ (NORMAL)
[2024-01-15 19:23] LABS: Influenza A QL RT-PCR Negative (Negative); Influenza B QL RT-PCR Negative (Negative); RSV RNA, RT-PCR Negative (Negative); SARS-CoV-2 RNA PCR Negative (Negative)
[2024-01-15] MEDS: AZITHROMYCIN 500 MG/NS 250 ML 500 MG/250 ML BAG 250 MG IVPB (20:07)
[2024-01-15] MEDS: SODIUM CHLORIDE 0.9% IV 2,000 ML/1,000 ML BAG 999 ML IV CONT (20:07)
[2024-01-15] MEDS: CEFEPIME 2 GM/NS 50 ML 2 GM/50 ML BAG IVPB (21:08)
[2024-01-15] MEDS: diphenhydrAMINE HCl INJ 50 MG/ML VIAL IV PUSH (21:08)
[2024-01-15 21:28] LABS: Reflex Lactic Acid Yes or No Add Lactic
--- NOTE | 2024-01-15 21:55 | ADMGEN ---
This patient, Brady Jones, was admitted to IMU Room 231-01. Patient/family oriented to hospital policies and general routines including ID bracelet, bed and alarms, visiting hours, pain management, procedures, bathroom and other care routines, personal items, smoking policy, room service/diet, and visiting hours. Information on how to activate the Rapid Response Team has been discussed. Patient/Family are encouraged to report perceived risks to care and to ask questions if they do not understand what they are told or what they should do.
[2024-01-15] MEDS: SODIUM CHLORIDE 0.9% IV 1,000 ML 500 ML IV CONT (22:10)
[2024-01-15] MEDS: VANCOMYCIN 1,750 MG/NS 500 ML 1,750 MG/500 ML BAG 250 MG IVPB (22:12)
[2024-01-15 23:18] LABS: Lactic Acid 1.5 mmol/L (0.7-2.0)
--- NOTE | 2024-01-15 23:33 | PM.IMHP ---
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 The patient reports that he has had a cough productive of brown to greenish sputum for approximately 1 month. He had a follow-up with his livestock commission agent scheduled 01/14/2024 which he missed due to having loose stools. His symptoms have progressively worsened with increasing cough and shortness of breath. He is usually on 4 L nasal cannula at night and does not use oxygen during the day and less his as needed. He reports that he woke up this morning more short of breath and had increased his oxygen requirement. He took 2 of his home nebulizer treatments which briefly improved his symptoms. He then got up to go to the bathroom and whenever he went to stand up he reported that everything went white and he almost passed out. At that time his friend called EMS. He reports that his chest feels tight but denies any chest pain. He denies any fevers or chills. She has had decreased appetite. He reports that his weight is stable. He denies any urinary or bowel symptoms. He has not had any recent changes in his chronic immunosuppressive therapy. Review of Systems Review of Systems: 12 systems were reviewed with pertinent positives and negatives per HPI. Except as documented in the HPI, all other systems were reviewed and are negative. [facility] Past Medical History Medical History (Updated 01/16/24 @ 01:04 by Grecia Clifton DO) Acute myeloid leukemia (~2008) Status post bone marrow transplant with resultant chronic kkyyg-ksjwup-jcpz disease. Anxiety CAD (coronary artery disease) Chronic anticoagulation Chronic obstructive pulmonary disease Chronic respiratory failure with hypoxia On 5 liters nasal cannula at nighttime. Deep venous thrombosis Depression Eczema Emphysema/COPD Hyperglycemia Hyperlipidemia Immunocompromised patient Patient on anti rejection medications. 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 Peripheral neuropathy Peyronie's disease Peyronie's disease Positive nasal culture for methicillin resistant Staphylococcus aureus Pulmonary emboli Sciatica ST elevation (STEMI) myocardial infarction (12/30/22) Surgical History Surgical History (Updated 01/16/24 @ 00:59 by Grecia Clifton DO) History of heart artery stent 12/30/2022 100% occlusion mid RCA with drug-eluting stent, left coronary system with [id number] disease History of orthopedic surgery Left tibia liz placement History of stem cell transplant Status post cataract extraction of both eyes with insertion of intraocular lens Family History Family History (Updated 01/16/24 @ 00:57 by Grecia Clifton DO) Mother Acute myocardial infarction, Onset Age: 42 Father COPD (chronic obstructive pulmonary disease) Diabetes mellitus Alcohol abuse Social History Social History Social History: Surrogate medical decision maker: Lissy Kaiser, friend/roommate. Code status: Full code. Years smoked: 44 Smoking status: Current some day smoker Tobacco type: cigarettes Smoking end date: 08/07/22 Additional smoking assessment comments: on nicotine patches, states he is currently on patches Alcohol intake: never Substance use: never Do You Feel Safe in your Home?: Yes Lack of Transportation: No Lack of Food: Never True Current Housing: I Have Housing Concerned About Future Housing: No Difficulty Paying Gas/Electric Bills: No Difficulty Paying for Meds: No Currently Unemployed: No Education: Decline to Answ
[2024-01-15 23:59] LABS: MRSA (PCR) NOT DETECTED (NOT DETECTE)
[2024-01-15] MEDS: SODIUM CHLORIDE 0.9% IV 1,000 ML 125 ML IV CONT (23:59)
[2024-01-16] VITALS (21 sets, daily range): BP systolic 113–177; BP diastolic 67–86; PULSE 80–119; RESP 16–22; TEMP 36.1–37.4; O2SAT 94–100
[2024-01-16] MEDS: ONDANSETRON INJ 4 MG/2 ML VIAL IV PUSH (00:42)
[2024-01-16] MEDS: diphenhydrAMINE HCl CAP 25 MG CAPSULE PO ×2 (00:43→21:20)
[2024-01-16] MEDS: mycophenolate mofetiL 250 MG CAPSULE 1000 MG PO ×3 (00:43→21:20)
[2024-01-16] MEDS: TACROLIMUS 0.5 MG CAPSULE PO (00:43)
[2024-01-16] MEDS: ACETAMINOPHEN 500 MG TABLET PO ×2 (00:43→21:20)
[2024-01-16] MEDS: VORICONAZOLE 200 MG TABLET PO ×3 (00:43→21:20)
[2024-01-16] MEDS: ALBUTEROL SULFATE NEB 2.5 MG/3 ML INH 5 MG INHALATION ×4 (01:41→21:58)
[2024-01-16] MEDS: IPRATROPIUM BR 0.02% INH SOLN 0.5 MG/2.5 ML VIAL INHALATION ×4 (01:42→21:58)
[2024-01-16] MEDS: SODIUM CHLOR 3% 15 ML NEB (RESPIRATORY THERAPY) 6 ML INHALATION (05:12)
[2024-01-16 07:22] LABS: Basophils Absolute Auto 0.1 K/mm3 (0.0-0.1); Basophils Percent Auto 0.2 % (0.2-1.2); Hemoglobin 10.7 g/dL (14.0-18.0); Immature Granulocyte Absolute 0.14 K/mm3 (0.00-0.031); Immature Granulocyte Percent A 0.7 % (0-0.5); Lymphocytes Absolute Auto 2.63 K/mm3 (0.9-3.2); Lymphocytes Percent Auto 12.9 % (18.3-44.2); Mean Corpuscular HGB Conc 32.4 g/dl (32-36); Mean Corpuscular Hemoglobin 34.3 pg (26-34); Mean Corpuscular Volume 105.8 fl (80-100); Mean Platelet Volume 9.9 fl (7.4-10.4); Monocytes Absolute Auto 1.2 K/mm3 (0.1-0.6); Monocytes Percent Auto 5.7 % (2.6-8.5); Neutrophils Absolute Auto 16.4 K/mm3 (1.3-6.7); Neutrophils Percent Auto 80.5 % (45.5-73.1); Nucleated Red Blood Cells Perc 0.2 % (0.0-0.2); Platelet Count Result 345 k/mm3 (150-375); Red Blood Count 3.12 M/mm3 (4.6-6.20); Red Cell Distribution Width 13.7 % (11.5-14.5); White Blood Count 20.4 K/mm3 (4.5-10.0)
[2024-01-16 07:30] LABS: Glucose Point of Care 129 mg/dl (65-105)
[2024-01-16 07:34] LABS: Anion Gap 7 mmol/L (8-16); Blood Urea Nitrogen 18 mg/dL (9-20); Calcium 10.5 mg/dL (8.4-10.2); Carbon Dioxide 27 mmol/L (22-30); Chloride 98 mmol/L (98-107); Estimated CRCL calculation 90 ml/min; Estimated Glomerular Filt Rate > 60; Glucose 137 mg/dL (65-110); Potassium 3.6 mmol/L (3.4-5.0); Sodium 132 mmol/L (137-145)
[2024-01-16] MEDS: ATORVASTATIN 40 MG TABLET PO (08:45)
[2024-01-16] MEDS: METOPROLOL SUCCINATE EXT REL 25 MG TABCR PO (08:45)
[2024-01-16] MEDS: CEFEPIME 2 GM/NS 50 ML 2 GM/50 ML BAG IVPB ×2 (08:45→21:19)
[2024-01-16] MEDS: OMEGA 3 POLYUNSAT FATTY ACIDS 1 GM CAP 2 GM PO (08:46)
[2024-01-16] MEDS: CLOPIDOGREL BISULFATE 75 MG TABLET PO (08:46)
[2024-01-16] MEDS: FLUTICASONE/UMECLIDIN/VILANTER 100-62.5-25 MCG ELLIPTA 1 PUFF INHALATION (08:47)
[2024-01-16] MEDS: VANCOMYCIN 1,250 MG/NS 250 ML 1,250 MG/250 ML BAG 166.67 MG IVPB ×2 (09:02→22:42)
[2024-01-16 11:46] LABS: Glucose Point of Care 84 mg/dl (65-105)
[2024-01-16] MEDS: ACETAMINOPHEN 325 MG TABLET 650 MG PO (12:01)
[2024-01-16] MEDS: GABAPENTIN 300 MG CAPSULE PO (12:02)
--- NOTE | 2024-01-16 14:04 | PDONCCN ---
HPI - Date of Consult Date/Time: 01/16/24 14:04 Requesting Physician: Rob Schulz MD Primary Care Provider: Kirt Lindsay DO - Consult Narrative Reason for consult: AML Narrative: Brady Jones is a 58 year old male with a past medical history of CAD, COPD, DVT/PE, DM, and AML s/o BMT in 2008. He has been following with Dr. Del Valle's office at [facility] every 3 months. He was last seen by them in May 2023 and was supposed to follow up in Aug 2023, but states he was in the hospital during that time and missed his appt. He has a history of GVHD of lungs and eyes and remains on cellcept, tacrolimus every other day, and prednisone when he is wheezing or SOB. He is supposed to be on acyclovir TID and Voriconazole BID for infectious prophylaxis. He reports he was having shortness of breath, brown intermittent sputum production, and almost passed out yesterday before being admitted. CT shows multifactorial PNA, severe emphysema, and diffuse wall thickening consistent with esophagitis. He is refusing to eat because of abdominal pain. He is trying to make himself throw up to clear the brown sputum, but denies nausea. He is also requesting to have his beltran bag put back on for convenience to urinate. He is currently on 3L-4L NC which is his baseline. Denies bleeding. Denies blood in his stool, urine, or sputum. Denies any weight loss, frequent infections, or night sweats. 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 Anxiety CAD (coronary artery disease) Chronic anticoagulation Chronic obstructive pulmonary disease Chronic respiratory failure with hypoxia On 5 liters nasal cannula at nighttime. Deep venous thrombosis Depression Eczema Emphysema/COPD Hyperglycemia Hyperlipidemia Immunocompromised patient Patient on anti rejection medications. Infectious disease of immune system Onset Date: ~10/02/23 Insulin dependent type 2 diabetes mellitus Peripheral neuropathy Peyronie's disease Peyronie's disease Positive nasal culture for methicillin resistant Staphylococcus aureus Pulmonary emboli Sciatica ST elevation (STEMI) myocardial infarction Onset Date: 12/30/22 Surgical History: Surgical History (Last Updated 01/16/24 @ 00:59 by Grecia Clifton DO) History of heart artery stent 12/30/2022 100% occlusion mid RCA with drug-eluting stent, left coronary system with nsqd-oz-cetsvsmg disease History of orthopedic surgery Left tibia liz placement History of stem cell transplant Status post cataract extraction of both eyes with insertion of intraocular lens Family History: Family History (Last Updated 01/16/24 @ 00:58 by Grecia Clifton DO) Mother Acute myocardial infarction, Onset Age: 42 Father COPD (chronic obstructive pulmonary disease) Diabetes mellitus Alcohol abuse - Social History Social History: Social History (Last Reviewed 01/16/24 @ 00:59 by Grecia Clifton DO) Alcohol Use: Alcohol intake: never Substance Use: Substance use: never Others: Spiritual care concerns: No Agree to blood products: Yes Living Arrangements: Living arrangements: with friend(s) Oppucation/Education: Occupation/Education: unemployed Smoking Status: Smoking status: Current some day smoker Tobacco type: cigarettes Smoking end date: 08/07/22 Smoking Pack-years: Years smoked: 44 Comments: Additional smoking assessment comments: on nicotine patches, states he is currently on patches Social Determinants of Health: Do You Feel Safe in your Home?: Yes Has the Lack of Transportation Kept You From Medical Appointments or From Getting Medications?: No W
[2024-01-16 15:27] LABS: Lactate Dehydrogenase 130 U/L (120-246)
[2024-01-16 15:51] LABS: Iron 31 ug/dL (49-181)
[2024-01-16 16:00] LABS: Percent Iron Saturation 16 % (20-50)
[2024-01-16 16:27] LABS: Glucose Point of Care 114 mg/dl (65-105)
[2024-01-16 16:35] LABS: Folic Acid 5.3 ng/mL (2.76->20)
[2024-01-16] MEDS: RIVAROXABAN 20 MG TABLET PO (17:10)
[2024-01-16] MEDS: PANTOPRAZOLE 40 MG TABLET PO (17:10)
--- NOTE | 2024-01-16 18:08 | PM.IMPN ---
Progress Note: A&P Assessment and Plan (1) COPD exacerbation: Code(s): J44.1 - Chronic obstructive pulmonary disease with (acute) exacerbation Status: Acute (2) Hypercalcemia: Code(s): E83.52 - Hypercalcemia Status: Acute (3) Sepsis: Qualifiers: Sepsis type: sepsis due to unspecified organism Sepsis acute organ dysfunction status: with acute organ dysfunction Severe sepsis acute organ dysfunction type: acute respiratory failure Acute respiratory failure type: with hypoxia Severe sepsis shock status: without septic shock Qualified Code(s): A41.9 - Sepsis, unspecified organism; R65.20 - Severe sepsis without septic shock; J96.01 - Acute respiratory failure with hypoxia Code(s): A41.9 - Sepsis, unspecified organism Status: Acute (4) Acute hyponatremia: Code(s): E87.1 - Hypo-osmolality and hyponatremia Status: Acute (5) Pneumonia: Qualifiers: Laterality: bilateral Lung location: lower lobe of lung Pneumonia type: due to unspecified organism Qualified Code(s): J18.9 - Pneumonia, unspecified organism Code(s): J18.9 - Pneumonia, unspecified organism Status: Acute (6) Acute hypoxic respiratory failure: Code(s): J96.01 - Acute respiratory failure with hypoxia Status: Acute (7) Hypertension: Qualifiers: Hypertension type: primary hypertension Qualified Code(s): I10 - Essential (primary) hypertension Code(s): I10 - Essential (primary) hypertension Status: Acute (8) Infectious disease of immune system: Onset Date: ~10/02/23 Code(s): D89.89 - Other specified disorders involving the immune mechanism, not elsewhere classified; B99.9 - Unspecified infectious disease Status: Acute (9) Hyperlipidemia associated with type 2 diabetes mellitus: Code(s): E11.69 - Type 2 diabetes mellitus with other specified complication; E78.5 - Hyperlipidemia, unspecified Status: Acute (10) Diabetic peripheral neuropathy associated with type 2 diabetes mellitus: Code(s): E11.42 - Type 2 diabetes mellitus with diabetic polyneuropathy Status: Acute (11) Vasaz-kxhfup-mpxi disease: Code(s): D89.813 - Idpkh-wjravr-zlxh disease, unspecified Status: Acute (12) Chronic anticoagulation: Code(s): Z79.01 - buttermaker helper (current) use of 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 Status: Acute (13) Immunocompromised patient: Code(s): D84.9 - Immunodeficiency, unspecified Status: Acute (14) Insulin dependent type 2 diabetes mellitus: Code(s): E11.9 - Type 2 diabetes mellitus without complications; Z79.4 - buttermaker helper (current) use of insulin Status: Acute (15) Acute myeloblastic leukemia, in remission: Code(s): C92.01 - Acute myeloblastic leukemia, in remission Status: Acute (16) Chronic pain syndrome: Code(s): G89.4 - Chronic pain syndrome Status: Acute (17) Chronic anticoagulation: Code(s): Z79.01 - buttermaker helper (current) use of 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 Status: Acute (18) Leukocytosis: Code(s): D72.829 - Elevated white blood cell count, unspecified Status: Acute (19) Hyperlipidemia: Code(s): E78.5 - Hyperlipidemia, unspecified Status: Chronic (20) Right middle lobe pulmonary infiltrate: Code(s): R91.8 - Other nonspecific abnormal finding of lung field Status: Acute (21) Anxiety and depression: Code(s): F41.9 - Anxiety disorder, unspecified; F32.9 - Major depressive disorder, single episode, unspecified Status: Chronic (22) Tobacco dependence: Code(s): F17.200 - Nicotine dependence, unspecified, uncomplicated Status: Acute Plan Admit patient to IMU under full inpatient status He has history of GVHD of lungs and eyes prompting him to take CellCept, tacrolimus and prednisone on a regular basis Patient admitted with sepsis caused by multifocal pneumonia Patient received aggressive IV
--- NOTE | 2024-01-16 18:33 | PC.NURSE ---
patient arrived to the floor from IMU at 1816, got report from Genoveva CONNELL in IMU. patient is alert and oriented x4, denies pain. changed dressings on all 3 IV's, is in bed with urinal at bedside, bed alarm on. call light in reach. assessment completed.
[2024-01-16 21:09] LABS: Glucose Point of Care 130 mg/dl (65-105)
[2024-01-16] MEDS: guaiFENesin 600 MG/DEXTROMETHORPHAN 30 MG SR TAB 12 HR 1 TAB PO (21:20)
[2024-01-16] MEDS: ACYCLOVIR 400 MG TABLET PO (21:20)
[2024-01-16] MEDS: MONTELUKAST SODIUM 10 MG TABLET PO (21:20)
[2024-01-17] VITALS (15 sets, daily range): BP systolic 112–120; BP diastolic 69–89; PULSE 74–120; RESP 14–20; TEMP 36.4–36.6; O2SAT 91–99
[2024-01-17] MEDS: IPRATROPIUM BR 0.02% INH SOLN 0.5 MG/2.5 ML VIAL INHALATION ×4 (02:07→20:09)
[2024-01-17] MEDS: ALBUTEROL SULFATE NEB 2.5 MG/3 ML INH 5 MG INHALATION ×4 (02:07→20:09)
[2024-01-17] MEDS: SODIUM CHLOR 3% 15 ML NEB (RESPIRATORY THERAPY) 6 ML INHALATION (05:06)
[2024-01-17] MEDS: ACYCLOVIR 400 MG TABLET PO ×3 (06:54→20:48)
[2024-01-17] MEDS: FLUTICASONE/UMECLIDIN/VILANTER 100-62.5-25 MCG ELLIPTA 1 PUFF INHALATION (07:08)
[2024-01-17 08:07] LABS: Glucose Point of Care 101 mg/dl (65-105)
[2024-01-17] MEDS: CEFEPIME 2 GM/NS 50 ML 2 GM/50 ML BAG IVPB ×2 (09:27→20:50)
[2024-01-17] MEDS: CLOPIDOGREL BISULFATE 75 MG TABLET PO (09:27)
[2024-01-17] MEDS: guaiFENesin 600 MG/DEXTROMETHORPHAN 30 MG SR TAB 12 HR 1 TAB PO ×2 (09:28→20:48)
[2024-01-17] MEDS: METOPROLOL SUCCINATE EXT REL 25 MG TABCR PO (09:28)
[2024-01-17] MEDS: ATORVASTATIN 40 MG TABLET PO (09:30)
[2024-01-17] MEDS: IRON SUCROSE COMPLEX 500 MG in SODIUM CHLORIDE 0.9% IV 250 ML 79 MG IVPB (09:30)
[2024-01-17] MEDS: mycophenolate mofetiL 250 MG CAPSULE 1000 MG PO ×2 (09:31→20:48)
[2024-01-17] MEDS: OMEGA 3 POLYUNSAT FATTY ACIDS 1 GM CAP 2 GM PO (09:32)
[2024-01-17] MEDS: VORICONAZOLE 200 MG TABLET PO ×2 (09:32→20:48)
[2024-01-17 09:34] LABS: Basophils Absolute Auto 0.1 K/mm3 (0.0-0.1); Basophils Percent Auto 0.4 % (0.2-1.2); Eosinophils Absolute Auto 0.1 K/mm3 (0-0.3); Eosinophils Percent Auto 0.3 % (0-4.4); Hematocrit 30.2 % (42.0-52.0); Hemoglobin 9.7 g/dL (14.0-18.0); Immature Granulocyte Absolute 0.17 K/mm3 (0.00-0.031); Lymphocytes Absolute Auto 2.29 K/mm3 (0.9-3.2); Lymphocytes Percent Auto 13.7 % (18.3-44.2); Mean Corpuscular HGB Conc 32.1 g/dl (32-36); Mean Corpuscular Hemoglobin 34.3 pg (26-34); Mean Corpuscular Volume 106.7 fl (80-100); Mean Platelet Volume 9.7 fl (7.4-10.4); Monocytes Absolute Auto 1.2 K/mm3 (0.1-0.6); Neutrophils Percent Auto 77.6 % (45.5-73.1); Nucleated Red Blood Cells Perc 0.2 % (0.0-0.2); Platelet Count Result 314 k/mm3 (150-375); Red Blood Count 2.83 M/mm3 (4.6-6.20); Red Cell Distribution Width 14.1 % (11.5-14.5); White Blood Count 16.8 K/mm3 (4.5-10.0)
[2024-01-17] MEDS: FERROUS SULFATE 325 MG TABLET DR PO ×2 (09:35→17:16)
[2024-01-17 09:41] LABS: Anion Gap 8 mmol/L (8-16); Blood Urea Nitrogen 13 mg/dL (9-20); Calcium 9.3 mg/dL (8.4-10.2); Carbon Dioxide 25 mmol/L (22-30); Chloride 104 mmol/L (98-107); Estimated CRCL calculation 90 ml/min; Estimated Glomerular Filt Rate > 60; Glucose 115 mg/dL (65-110); Magnesium 1.5 mg/dL (1.6-2.3); Phosphorus 1.6 mg/dL (2.5-4.5); Potassium 3.3 mmol/L (3.4-5.0); Sodium 137 mmol/L (137-145)
[2024-01-17 10:03] LABS: Hypochromasia 1+ (NORMAL); Macrocytosis 1+ (NORMAL); Platelet Estimate Adequate (Adequate); Schistocytes None Seen (NORMAL)
[2024-01-17 10:46] LABS: Vancomycin Trough 21.5 ug/mL (10.0-20.0)
--- NOTE | 2024-01-17 11:19 | PM.CNPUL ---
Assessment and Plan Assessment and plan (1) COPD exacerbation: Code(s): J44.1 - Chronic obstructive pulmonary disease with (acute) exacerbation Status: Acute (2) Pneumonia: Qualifiers: Laterality: bilateral Lung location: lower lobe of lung Pneumonia type: due to unspecified organism Qualified Code(s): J18.9 - Pneumonia, unspecified organism Code(s): J18.9 - Pneumonia, unspecified organism Status: Acute Assessment and Plan: This 58-year-old male patient, who has a history of Acute Myeloid Leukemia and has been on immunosuppressive therapy after undergoing a bone marrow transplant years ago, suffers from graft versus host disease affecting his lungs. He has a history of severe centrilobular emphysema, as confirmed by a chest CT scan, and severe obstructive airway disease with a Forced Expiratory Volume in the first second of 1.32 L. His last Pulmonary Function Test conducted several months ago, showed severe air trapping and lung hyperinflation. He has been consistently using bronchodilators for his COPD exacerbations and requires oxygen at night. He recently presented with a one-day history of chest tightness. Diagnostic studies revealed new infiltrates, particularly in the posterior segments of the bilateral upper lobes. The patient is currently on antibiotics to cover potential cocci, as indicated by preliminary blood and sputum cultures. Considering his medical history and diagnostic results, especially the chest CT scan showing the distribution of new infiltrates and esophageal thickening, it's likely that the patient has aspiration pneumonia, which likely occurred while in a supine position. His physical exam showed no wheezing, and he has not been administered any IV steroids for COPD exacerbation. At this point, the treatment plan includes continuing the current regimen of short-acting bronchodilators and the patient's maintenance triple inhaler without the addition of steroids. Given the distribution of new infiltrates, it's likely he has aspiration pneumonia, and coverage for anaerobes should be considered. If final reports of blood and sputum cultures do not indicate the presence of Staphylococcus aureus, I recommend adding anaerobe coverage and discontinue vancomycin. MRSA screening is negative. I will continue to monitor the patient's condition closely in collaboration with you. (3) Acute hypoxic respiratory failure: Code(s): J96.01 - Acute respiratory failure with hypoxia Status: Acute Assessment and Plan: The patient is suffering from chronic hypoxemic respiratory failure, a condition linked to advanced emphysema. Both chest CT scans and pulmonary function tests confirm the presence of severe emphysema, characterized by hyperinflation of the lungs and air trapping. The patient has also been diagnosed with graft versus host disease, a condition that often presents as bronchiolitis obliterans. However, it's uncertain to what extent bronchiolitis obliterans is contributing to the patient's condition in addition to the advanced emphysema. This is because both diseases cause similar symptoms and can result in an obstructive pattern on pulmonary function testing. (4) Diabetic peripheral neuropathy associated with type 2 diabetes mellitus: Code(s): E11.42 - Type 2 diabetes mellitus with diabetic polyneuropathy Status: Acute (5) Anemia: Code(s): D64.9 - Anemia, unspecified Status: Acute (6) Dyeob-emqdam-ruvd disease: Code(s): D89.813 - Gzboi-nqndcq-tmdc disease, unspecified Status: Acute (7) Immunocompromised patient: Code(s): D84.9 - Immunodeficiency, unspecified Status: Acute (8) Tobacco dependence: Code(s): F17.200 - Nicotine dependence, unspecified, uncomplicated Status: Acute History of Present Illness History of Present Illness Consult date: 01/17/24 Chief complaint: Pneumonia,Hypoxic Respiratory Failure
[2024-01-17] MEDS: VANCOMYCIN 1,000 MG/NS 250 ML 1,000 MG/250 ML BAG 250 MG IVPB (14:06)
[2024-01-17] MEDS: RIVAROXABAN 20 MG TABLET PO (17:16)
--- NOTE | 2024-01-17 18:10 | PM.IMPN ---
Progress Note: A&P Assessment and Plan (1) COPD exacerbation: Code(s): J44.1 - Chronic obstructive pulmonary disease with (acute) exacerbation Status: Acute (2) Hypercalcemia: Code(s): E83.52 - Hypercalcemia Status: Acute (3) Sepsis: Qualifiers: Sepsis type: sepsis due to unspecified organism Sepsis acute organ dysfunction status: with acute organ dysfunction Severe sepsis acute organ dysfunction type: acute respiratory failure Acute respiratory failure type: with hypoxia Severe sepsis shock status: without septic shock Qualified Code(s): A41.9 - Sepsis, unspecified organism; R65.20 - Severe sepsis without septic shock; J96.01 - Acute respiratory failure with hypoxia Code(s): A41.9 - Sepsis, unspecified organism Status: Acute (4) Acute hyponatremia: Code(s): E87.1 - Hypo-osmolality and hyponatremia Status: Acute (5) Pneumonia: Qualifiers: Laterality: bilateral Lung location: lower lobe of lung Pneumonia type: due to unspecified organism Qualified Code(s): J18.9 - Pneumonia, unspecified organism Code(s): J18.9 - Pneumonia, unspecified organism Status: Acute (6) Acute hypoxic respiratory failure: Code(s): J96.01 - Acute respiratory failure with hypoxia Status: Acute (7) Hypertension: Qualifiers: Hypertension type: primary hypertension Qualified Code(s): I10 - Essential (primary) hypertension Code(s): I10 - Essential (primary) hypertension Status: Acute (8) Infectious disease of immune system: Onset Date: ~10/02/23 Code(s): D89.89 - Other specified disorders involving the immune mechanism, not elsewhere classified; B99.9 - Unspecified infectious disease Status: Acute (9) Hyperlipidemia associated with type 2 diabetes mellitus: Code(s): E11.69 - Type 2 diabetes mellitus with other specified complication; E78.5 - Hyperlipidemia, unspecified Status: Acute (10) Diabetic peripheral neuropathy associated with type 2 diabetes mellitus: Code(s): E11.42 - Type 2 diabetes mellitus with diabetic polyneuropathy Status: Acute (11) Qbfbd-djkqkw-lggr disease: Code(s): D89.813 - Kprzu-hqtwnz-mrhc disease, unspecified Status: Acute (12) Chronic anticoagulation: Code(s): Z79.01 - 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 Status: Acute (13) Immunocompromised patient: Code(s): D84.9 - Immunodeficiency, unspecified Status: Acute (14) Insulin dependent type 2 diabetes mellitus: Code(s): E11.9 - Type 2 diabetes mellitus without complications; Z79.4 - 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 Status: Acute (15) Acute myeloblastic leukemia, in remission: Code(s): C92.01 - Acute myeloblastic leukemia, in remission Status: Acute (16) Chronic pain syndrome: Code(s): G89.4 - Chronic pain syndrome Status: Acute (17) Leukocytosis: Code(s): D72.829 - Elevated white blood cell count, unspecified Status: Acute (18) Hyperlipidemia: Code(s): E78.5 - Hyperlipidemia, unspecified Status: Chronic (19) Right middle lobe pulmonary infiltrate: Code(s): R91.8 - Other nonspecific abnormal finding of lung field Status: Acute (20) Anxiety and depression: Code(s): F41.9 - Anxiety disorder, unspecified; F32.9 - Major depressive disorder, single episode, unspecified Status: Chronic (21) Tobacco dependence: Code(s): F17.200 - Nicotine dependence, unspecified, uncomplicated Status: Acute Plan Admit patient to IMU under full inpatient status He has history of GVHD of lungs and eyes prompting him to take CellCept, tacrolimus and prednisone on a regular basis Patient admitted with sepsis caused by multifocal pneumonia Patient received aggressive IV hydration 30 milligrams/kg based on sepsis protocol Patient received 1 dose of IV azithromycin in ED Continue with IV
[2024-01-17] MEDS: POTASSIUM CHLORIDE 20 MEQ ER TABLET 40 MEQ PO (18:18)
[2024-01-17] MEDS: ONDANSETRON INJ 4 MG/2 ML VIAL IV PUSH (20:43)
[2024-01-17] MEDS: MONTELUKAST SODIUM 10 MG TABLET PO (20:48)
[2024-01-17] MEDS: TACROLIMUS 0.5 MG CAPSULE PO (20:48)
[2024-01-17] MEDS: ACETAMINOPHEN 500 MG TABLET PO (20:48)
[2024-01-17] MEDS: diphenhydrAMINE HCl CAP 25 MG CAPSULE PO (20:48)
[2024-01-17 20:57] LABS: Glucose Point of Care 135 mg/dl (65-105)
[2024-01-18] VITALS (14 sets, daily range): BP systolic 115–135; BP diastolic 58–77; PULSE 67–86; RESP 16–20; TEMP 36.4–36.8; O2SAT 96–100
[2024-01-18] MEDS: ALBUTEROL SULFATE NEB 2.5 MG/3 ML INH 5 MG INHALATION ×4 (02:00→20:57)
[2024-01-18] MEDS: IPRATROPIUM BR 0.02% INH SOLN 0.5 MG/2.5 ML VIAL INHALATION ×4 (02:00→20:54)
[2024-01-18] MEDS: VANCOMYCIN 1,000 MG/NS 250 ML 1,000 MG/250 ML BAG 250 MG IVPB ×2 (03:59→14:38)
[2024-01-18] MEDS: SODIUM CHLORIDE 0.9% IV 100 ML (03:59)
[2024-01-18] MEDS: SODIUM CHLOR 3% 15 ML NEB (RESPIRATORY THERAPY) 6 ML INHALATION (05:14)
[2024-01-18] MEDS: ACYCLOVIR 400 MG TABLET PO ×3 (05:44→21:20)
[2024-01-18 06:27] LABS: Basophils Absolute Auto 0.1 K/mm3 (0.0-0.1); Basophils Percent Auto 0.6 % (0.2-1.2); Eosinophils Absolute Auto 0.3 K/mm3 (0-0.3); Eosinophils Percent Auto 2.3 % (0-4.4); Hematocrit 30.6 % (42.0-52.0); Hemoglobin 9.9 g/dL (14.0-18.0); Immature Granulocyte Absolute 0.04 K/mm3 (0.00-0.031); Immature Granulocyte Percent A 0.4 % (0-0.5); Lymphocytes Absolute Auto 4.53 K/mm3 (0.9-3.2); Lymphocytes Percent Auto 41.9 % (18.3-44.2); Mean Corpuscular HGB Conc 32.4 g/dl (32-36); Mean Corpuscular Hemoglobin 34.7 pg (26-34); Mean Corpuscular Volume 107.4 fl (80-100); Mean Platelet Volume 10.1 fl (7.4-10.4); Monocytes Absolute Auto 1.3 K/mm3 (0.1-0.6); Monocytes Percent Auto 11.7 % (2.6-8.5); Neutrophils Absolute Auto 4.7 K/mm3 (1.3-6.7); Neutrophils Percent Auto 43.1 % (45.5-73.1); Nucleated Red Blood Cells Absolute Auto 0.1 K/mm3 (0.0-0.012); Nucleated Red Blood Cells Perc 0.7 % (0.0-0.2); Platelet Count Result 353 k/mm3 (150-375); Red Blood Count 2.85 M/mm3 (4.6-6.20); Red Cell Distribution Width 14.2 % (11.5-14.5); White Blood Count 10.8 K/mm3 (4.5-10.0)
[2024-01-18 06:38] LABS: Anion Gap 4 mmol/L (8-16); Blood Urea Nitrogen 12 mg/dL (9-20); Calcium 8.9 mg/dL (8.4-10.2); Carbon Dioxide 29 mmol/L (22-30); Chloride 107 mmol/L (98-107); Estimated CRCL calculation 90 ml/min; Estimated Glomerular Filt Rate > 60; Glucose 182 mg/dL (65-110); Potassium 3.5 mmol/L (3.4-5.0); Sodium 140 mmol/L (137-145)
[2024-01-18] MEDS: FLUTICASONE/UMECLIDIN/VILANTER 100-62.5-25 MCG ELLIPTA 1 PUFF INHALATION (07:19)
[2024-01-18] MEDS: CEFEPIME 2 GM/NS 50 ML 2 GM/50 ML BAG IVPB ×2 (08:41→21:20)
[2024-01-18] MEDS: OMEGA 3 POLYUNSAT FATTY ACIDS 1 GM CAP 2 GM PO (08:42)
[2024-01-18] MEDS: CLOPIDOGREL BISULFATE 75 MG TABLET PO (08:43)
[2024-01-18] MEDS: guaiFENesin 600 MG/DEXTROMETHORPHAN 30 MG SR TAB 12 HR 1 TAB PO ×2 (08:43→21:20)
[2024-01-18] MEDS: METOPROLOL SUCCINATE EXT REL 25 MG TABCR PO (08:43)
[2024-01-18] MEDS: VORICONAZOLE 200 MG TABLET PO ×2 (08:43→21:20)
[2024-01-18] MEDS: ATORVASTATIN 40 MG TABLET PO (08:43)
[2024-01-18] MEDS: mycophenolate mofetiL 250 MG CAPSULE 1000 MG PO ×2 (08:43→21:20)
[2024-01-18] MEDS: FERROUS SULFATE 325 MG TABLET DR PO ×2 (08:44→17:03)
[2024-01-18] MEDS: MAGNESIUM SULF 2 GM/WATER 50ML 2 GM/50 ML BAG IVPB (09:25)
[2024-01-18] MEDS: POTASSIUM PHOS,M-BASIC-D-BASIC 20 MMOL in SODIUM CHLORIDE 0.9% IV 250 ML 64.17 MMOL IVPB (11:24)
[2024-01-18 11:44] LABS: Glucose Point of Care 270 mg/dl (65-105)
[2024-01-18] MEDS: INSULIN ASPART (*BKC) 100 UNITS/ML SUB-Q (11:58)
[2024-01-18 15:04] LABS: Glucose Point of Care 59 mg/dl (65-105)
[2024-01-18 15:05] LABS: Glucose Point of Care 89 mg/dl (65-105)
--- NOTE | 2024-01-18 15:26 | PC.NURSE ---
Patient complained of not feeling well. Checked blood sugar and it read 59. Gave patient apple juice and recheck sugar approximately 15 min later. Blood sugar was 89. Notified Dr. Schulz of readings. Offered patient another apple juice to which he drank. Will continue to monitor patient.
[2024-01-18 16:17] LABS: Glucose Point of Care 113 mg/dl (65-105)
[2024-01-18] MEDS: RIVAROXABAN 20 MG TABLET PO (17:03)
--- NOTE | 2024-01-18 18:05 | PM.IMPN ---
Progress Note: A&P Assessment and Plan (1) COPD exacerbation: Code(s): J44.1 - Chronic obstructive pulmonary disease with (acute) exacerbation Status: Acute (2) Hypercalcemia: Code(s): E83.52 - Hypercalcemia Status: Acute (3) Sepsis: Qualifiers: Sepsis type: sepsis due to unspecified organism Sepsis acute organ dysfunction status: with acute organ dysfunction Severe sepsis acute organ dysfunction type: acute respiratory failure Acute respiratory failure type: with hypoxia Severe sepsis shock status: without septic shock Qualified Code(s): A41.9 - Sepsis, unspecified organism; R65.20 - Severe sepsis without septic shock; J96.01 - Acute respiratory failure with hypoxia Code(s): A41.9 - Sepsis, unspecified organism Status: Acute (4) Acute hyponatremia: Code(s): E87.1 - Hypo-osmolality and hyponatremia Status: Acute (5) Pneumonia: Qualifiers: Laterality: bilateral Lung location: lower lobe of lung Pneumonia type: due to unspecified organism Qualified Code(s): J18.9 - Pneumonia, unspecified organism Code(s): J18.9 - Pneumonia, unspecified organism Status: Acute (6) Acute hypoxic respiratory failure: Code(s): J96.01 - Acute respiratory failure with hypoxia Status: Acute (7) Hypertension: Qualifiers: Hypertension type: primary hypertension Qualified Code(s): I10 - Essential (primary) hypertension Code(s): I10 - Essential (primary) hypertension Status: Acute (8) Infectious disease of immune system: Onset Date: ~10/02/23 Code(s): D89.89 - Other specified disorders involving the immune mechanism, not elsewhere classified; B99.9 - Unspecified infectious disease Status: Acute (9) Hyperlipidemia associated with type 2 diabetes mellitus: Code(s): E11.69 - Type 2 diabetes mellitus with other specified complication; E78.5 - Hyperlipidemia, unspecified Status: Acute (10) Diabetic peripheral neuropathy associated with type 2 diabetes mellitus: Code(s): E11.42 - Type 2 diabetes mellitus with diabetic polyneuropathy Status: Acute (11) Qckyz-mbeoxd-ogrd disease: Code(s): D89.813 - Hyybd-zasvkm-fjfu disease, unspecified Status: Acute (12) Chronic anticoagulation: Code(s): Z79.01 - superintendent container 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) 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 of 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 Status: Acute (13) Immunocompromised patient: Code(s): D84.9 - Immunodeficiency, unspecified Status: Acute (14) Insulin dependent type 2 diabetes mellitus: Code(s): E11.9 - Type 2 diabetes mellitus without complications; Z79.4 - superintendent container 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) use of insulin Status: Acute (15) Acute myeloblastic leukemia, in remission: Code(s): C92.01 - Acute myeloblastic leukemia, in remission Status: Acute (16) Chronic pain syndrome: Code(s): G89.4 - Chronic pain syndrome Status: Acute (17) Leukocytosis: Code(s): D72.829 - Elevated white blood cell count, unspecified Status: Acute (18) Hyperlipidemia: Code(s): E78.5 - Hyperlipidemia, unspecified Status: Chronic (19) Right middle lobe pulmonary infiltrate: Code(s): R91.8 - Other nonspecific abnormal finding of lung field Status: Acute (20) Anxiety and depression: Code(s): F41.9 - Anxiety disorder, unspecified; F32.9 - Major depressive disorder, single episode, unspecified Status: Chronic (21) Tobacco dependence: Code(s): F17.200 - Nicotine dependence, unspecified, uncomplicated Status: Acute Plan Admit patient to IMU under full inpatient status He has history of GVHD of lungs and eyes prompting him to take CellCept, tacrolimus and prednisone on a regular basis Patient admitted with sepsis caused by multifocal pneumonia Patient received aggressive IV hydration 30 milligrams/kg based on sepsis protocol Patient received 1 dose of IV azithromycin in ED Continue with IV
[2024-01-18] MEDS: POTASSIUM CHLORIDE 20 MEQ PACKET (FOR LIQUID) 40 MEQ PO (18:25)
--- NOTE | 2024-01-18 18:29 | PC.NURSE ---
Patient denied glucose monitoring for breakfast. Educated patient on importance of allowing staff to check his blood sugar. Patient stated his device was the most accurate way to check his sugar and refused the accu check. At lunch time his implanted device read 209, I discussed with the patient that I would need to use the hospital device in order to see the appropriate insulin dose. Patient agreed and allowed us to check his blood sugar. The glucometer read 270. Due to the large range the patient has agreed to allowing staff to continue with glucose checks using our glucometer. Dr Schulz aware that patient denied the glucose monitoring at 0800. Will continue to educate patient.
[2024-01-18 19:31] LABS: Toxigenic C. Diff NEGATIVE (NEGATIVE)
[2024-01-18 21:04] LABS: Glucose Point of Care 108 mg/dl (65-105)
[2024-01-18] MEDS: MONTELUKAST SODIUM 10 MG TABLET PO (21:20)
[2024-01-18] MEDS: ACETAMINOPHEN 500 MG TABLET PO (21:20)
[2024-01-18] MEDS: diphenhydrAMINE HCl CAP 25 MG CAPSULE PO (21:20)
[2024-01-19] VITALS (11 sets, daily range): BP systolic 100–143; BP diastolic 56–78; PULSE 77–152; RESP 16–20; TEMP 36.4–36.9; O2SAT 96–100
[2024-01-19 02:22] LABS: Basophils Absolute Auto 0.1 K/mm3 (0.0-0.1); Basophils Percent Auto 0.7 % (0.2-1.2); Eosinophils Absolute Auto 0.3 K/mm3 (0-0.3); Hematocrit 30.3 % (42.0-52.0); Hemoglobin 9.8 g/dL (14.0-18.0); Immature Granulocyte Absolute 0.05 K/mm3 (0.00-0.031); Immature Granulocyte Percent A 0.5 % (0-0.5); Lymphocytes Absolute Auto 3.73 K/mm3 (0.9-3.2); Lymphocytes Percent Auto 34.8 % (18.3-44.2); Mean Corpuscular HGB Conc 32.3 g/dl (32-36); Mean Corpuscular Hemoglobin 34.9 pg (26-34); Mean Corpuscular Volume 107.8 fl (80-100); Mean Platelet Volume 9.5 fl (7.4-10.4); Monocytes Absolute Auto 0.9 K/mm3 (0.1-0.6); Monocytes Percent Auto 8.1 % (2.6-8.5); Neutrophils Absolute Auto 5.7 K/mm3 (1.3-6.7); Neutrophils Percent Auto 52.9 % (45.5-73.1); Nucleated Red Blood Cells Absolute Auto 0.2 K/mm3 (0.0-0.012); Nucleated Red Blood Cells Perc 2.1 % (0.0-0.2); Platelet Count Result 343 k/mm3 (150-375); Red Blood Count 2.81 M/mm3 (4.6-6.20); Red Cell Distribution Width 14.8 % (11.5-14.5); White Blood Count 10.7 K/mm3 (4.5-10.0)
[2024-01-19 02:24] LABS: Methylmalonic Acid 138 nmol/L (87-318)
[2024-01-19 02:40] LABS: Platelet Estimate Adequate (Adequate)
[2024-01-19 02:42] LABS: Anion Gap 6 mmol/L (8-16); Anisocytosis 1+ (NORMAL); Blood Urea Nitrogen 10 mg/dL (9-20); Calcium 8.3 mg/dL (8.4-10.2); Carbon Dioxide 30 mmol/L (22-30); Chloride 103 mmol/L (98-107); Estimated CRCL calculation 90 ml/min; Estimated Glomerular Filt Rate > 60; Glucose 125 mg/dL (65-110); Magnesium 1.7 mg/dL (1.6-2.3); Phosphorus 1.8 mg/dL (2.5-4.5); Potassium 3.7 mmol/L (3.4-5.0); Schistocytes None Seen (NORMAL); Sodium 139 mmol/L (137-145); Target Cells 1+ (NORMAL)
[2024-01-19 02:49] LABS: Vancomycin Trough 16.9 ug/mL (10.0-20.0)
[2024-01-19] MEDS: IPRATROPIUM BR 0.02% INH SOLN 0.5 MG/2.5 ML VIAL INHALATION ×3 (03:01→20:19)
[2024-01-19] MEDS: ALBUTEROL SULFATE NEB 2.5 MG/3 ML INH 5 MG INHALATION ×3 (03:04→20:19)
[2024-01-19] MEDS: VANCOMYCIN 1,000 MG/NS 250 ML 1,000 MG/250 ML BAG 250 MG IVPB ×2 (04:06→16:05)
[2024-01-19] MEDS: ACYCLOVIR 400 MG TABLET PO ×3 (06:29→20:06)
[2024-01-19 07:48] LABS: Glucose Point of Care 150 mg/dl (65-105)
[2024-01-19] MEDS: POTASSIUM CHLORIDE 20 MEQ PACKET (FOR LIQUID) 40 MEQ PO (08:09)
[2024-01-19] MEDS: METOPROLOL SUCCINATE EXT REL 25 MG TABCR PO (08:10)
[2024-01-19] MEDS: OMEGA 3 POLYUNSAT FATTY ACIDS 1 GM CAP 2 GM PO (08:10)
[2024-01-19] MEDS: VORICONAZOLE 200 MG TABLET PO ×2 (08:10→20:06)
[2024-01-19] MEDS: mycophenolate mofetiL 250 MG CAPSULE 1000 MG PO ×2 (08:10→20:15)
[2024-01-19] MEDS: guaiFENesin 600 MG/DEXTROMETHORPHAN 30 MG SR TAB 12 HR 1 TAB PO ×2 (08:10→20:05)
[2024-01-19] MEDS: FERROUS SULFATE 325 MG TABLET DR PO ×2 (08:10→16:05)
[2024-01-19] MEDS: CEFEPIME 2 GM/NS 50 ML 2 GM/50 ML BAG IVPB ×2 (08:10→20:05)
[2024-01-19] MEDS: ATORVASTATIN 40 MG TABLET PO (08:12)
[2024-01-19] MEDS: CLOPIDOGREL BISULFATE 75 MG TABLET PO (08:12)
--- NOTE | 2024-01-19 08:49 | PCRCNOTE ---
MORNING NEB TX HELD DUE TO ELEVATED HEART RATE. R.N. NOTIFIED OF THE HEART RATE. INHALER NOT AVAILABLE; PHARMACY CALLED FOR A REFILL.
[2024-01-19] MEDS: MAGNESIUM OXIDE 400 MG TABLET PO (10:33)
[2024-01-19] MEDS: POTASSIUM PHOS,M-BASIC-D-BASIC 40 MMOL in SODIUM CHLORIDE 0.9% IV 250 ML 43.89 MMOL IVPB (10:43)
[2024-01-19 11:21] LABS: Glucose Point of Care 173 mg/dl (65-105)
--- NOTE | 2024-01-19 13:47 | PC.NURSE ---
Patient very cooperative and friendly. He is compliant with medications. HR slightly elevated at 102 with palpation during morning assessment. RT concerned and will not give treatment. HR checked again mid morning and it was 84. Trio rounds with MD and concerns were addressed. Patient to possibly DC tomorrow.
[2024-01-19] MEDS: FLUTICASONE/UMECLIDIN/VILANTER 100-62.5-25 MCG ELLIPTA 1 PUFF INHALATION (14:11)
[2024-01-19] MEDS: LOPERAMIDE HCL 2 MG CAPSULE PO (15:10)
--- NOTE | 2024-01-19 15:45 | P.PNIM_ITS ---
Progress Note: A&P Assessment and Plan (1) COPD exacerbation: Code(s): J44.1 - Chronic obstructive pulmonary disease with (acute) exacerbation Status: Acute (2) Hypercalcemia: Code(s): E83.52 - Hypercalcemia Status: Acute (3) Sepsis: Qualifiers: Sepsis type: sepsis due to unspecified organism Sepsis acute organ dysfunction status: with acute organ dysfunction Severe sepsis acute organ dysfunction type: acute respiratory failure Acute respiratory failure type: with hypoxia Severe sepsis shock status: without septic shock Qualified Code(s): A41.9 - Sepsis, unspecified organism; R65.20 - Severe sepsis without septic shock; J96.01 - Acute respiratory failure with hypoxia Code(s): A41.9 - Sepsis, unspecified organism Status: Acute (4) Acute hyponatremia: Code(s): E87.1 - Hypo-osmolality and hyponatremia Status: Acute (5) Pneumonia: Qualifiers: Laterality: bilateral Lung location: lower lobe of lung Pneumonia type: due to unspecified organism Qualified Code(s): J18.9 - Pneumonia, unspecified organism Code(s): J18.9 - Pneumonia, unspecified organism Status: Acute (6) Acute hypoxic respiratory failure: Code(s): J96.01 - Acute respiratory failure with hypoxia Status: Acute (7) Hypertension: Qualifiers: Hypertension type: primary hypertension Qualified Code(s): I10 - Essential (primary) hypertension Code(s): I10 - Essential (primary) hypertension Status: Acute (8) Infectious disease of immune system: Onset Date: ~10/02/23 Code(s): D89.89 - Other specified disorders involving the immune mechanism, not elsewhere classified; B99.9 - Unspecified infectious disease Status: Acute (9) Hyperlipidemia associated with type 2 diabetes mellitus: Code(s): E11.69 - Type 2 diabetes mellitus with other specified complication; E78.5 - Hyperlipidemia, unspecified Status: Acute (10) Diabetic peripheral neuropathy associated with type 2 diabetes mellitus: Code(s): E11.42 - Type 2 diabetes mellitus with diabetic polyneuropathy Status: Acute (11) Hxuys-zhpqrp-bmor disease: Code(s): D89.813 - Djqgt-ezxzeg-bigu disease, unspecified Status: Acute (12) Chronic anticoagulation: Code(s): 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 - 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 Status: Acute (13) Immunocompromised patient: Code(s): D84.9 - Immunodeficiency, unspecified Status: Acute (14) Insulin dependent type 2 diabetes mellitus: Code(s): E11.9 - Type 2 diabetes mellitus without complications; Z79.4 - bed bug exterminator (current) use of insulin Status: Acute (15) Acute myeloblastic leukemia, in remission: Code(s): C92.01 - Acute myeloblastic leukemia, in remission Status: Acute (16) Chronic pain syndrome: Code(s): G89.4 - Chronic pain syndrome Status: Acute (17) Leukocytosis: Code(s): D72.829 - Elevated white blood cell count, unspecified Status: Acute (18) Hyperlipidemia: Code(s): E78.5 - Hyperlipidemia, unspecified Status: Chronic (19) Right middle lobe pulmonary infiltrate: Code(s): R91.8 - Other nonspecific abnormal finding of lung field Status: Acute (20) Anxiety and depression: Code(s): F41.9 - Anxiety disorder, unspecified; F32.9 - Major depressive disorder, single episode, unspecified Status: Chronic (21) Tobacco dependence: Code(s): F17.200 - Nicotine dependence, unspecified, uncomplicated
[2024-01-19 16:48] LABS: Glucose Point of Care 128 mg/dl (65-105)
[2024-01-19] MEDS: CYANOCOBALAMIN INJ 1,000 MCG/ML VIAL 1000 MCG IM (17:24)
[2024-01-19] MEDS: RIVAROXABAN 20 MG TABLET PO (17:24)
[2024-01-19 18:55] LABS: Pneumococcal Antigen Urine Not Detected (Not Detected)
[2024-01-19] MEDS: ACETAMINOPHEN 500 MG TABLET PO (20:05)
[2024-01-19] MEDS: MONTELUKAST SODIUM 10 MG TABLET PO (20:05)
[2024-01-19] MEDS: diphenhydrAMINE HCl CAP 25 MG CAPSULE PO (20:06)
[2024-01-19 20:49] LABS: Glucose Point of Care 127 mg/dl (65-105)
[2024-01-19] MEDS: TACROLIMUS 0.5 MG CAPSULE PO (22:21)
[2024-01-20] VITALS (14 sets, daily range): BP systolic 119–126; BP diastolic 69–74; PULSE 78–104; RESP 16–18; TEMP 36.4–37.1; O2SAT 92–100
[2024-01-20] MEDS: ALBUTEROL SULFATE NEB 2.5 MG/3 ML INH 5 MG INHALATION ×2 (02:10→07:56)
[2024-01-20] MEDS: IPRATROPIUM BR 0.02% INH SOLN 0.5 MG/2.5 ML VIAL INHALATION ×2 (02:10→07:56)
[2024-01-20 02:37] LABS: Legionella pneumophila Ag Ur Not Detected (Not Detected)
[2024-01-20] MEDS: VANCOMYCIN 1,000 MG/NS 250 ML 1,000 MG/250 ML BAG 250 MG IVPB (02:45)
[2024-01-20] MEDS: ACYCLOVIR 400 MG TABLET PO ×3 (05:20→20:56)
[2024-01-20 07:33] LABS: Estimated CRCL calculation 92 ml/min; Estimated Glomerular Filt Rate > 60; Magnesium 1.7 mg/dL (1.6-2.3); Phosphorus 2.1 mg/dL (2.5-4.5)
[2024-01-20] MEDS: FLUTICASONE/UMECLIDIN/VILANTER 100-62.5-25 MCG ELLIPTA 1 PUFF INHALATION (07:57)
[2024-01-20 08:05] LABS: Glucose Point of Care 136 mg/dl (65-105)
[2024-01-20] MEDS: CEFEPIME 2 GM/NS 50 ML 2 GM/50 ML BAG IVPB ×2 (09:08→20:44)
[2024-01-20] MEDS: mycophenolate mofetiL 250 MG CAPSULE 1000 MG PO ×2 (09:08→20:43)
[2024-01-20] MEDS: CLOPIDOGREL BISULFATE 75 MG TABLET PO (09:09)
[2024-01-20] MEDS: VORICONAZOLE 200 MG TABLET PO ×2 (09:09→20:43)
[2024-01-20] MEDS: guaiFENesin 600 MG/DEXTROMETHORPHAN 30 MG SR TAB 12 HR 1 TAB PO ×2 (09:09→20:44)
[2024-01-20] MEDS: ATORVASTATIN 40 MG TABLET PO (09:09)
[2024-01-20] MEDS: OMEGA 3 POLYUNSAT FATTY ACIDS 1 GM CAP 2 GM PO (09:09)
[2024-01-20] MEDS: METOPROLOL SUCCINATE EXT REL 25 MG TABCR PO (09:09)
[2024-01-20] MEDS: POTASSIUM CHLORIDE 20 MEQ PACKET (FOR LIQUID) 40 MEQ PO (09:09)
[2024-01-20] MEDS: CYANOCOBALAMIN 1,000 MCG TABLET 1000 MCG PO (09:09)
[2024-01-20] MEDS: FERROUS SULFATE 325 MG TABLET DR PO ×2 (09:09→17:20)
[2024-01-20] MEDS: MAGNESIUM OXIDE 400 MG TABLET PO (09:09)
--- NOTE | 2024-01-20 09:15 | P.PNIM_ITS ---
Progress Note: A&P Assessment and Plan (1) COPD exacerbation: Code(s): J44.1 - Chronic obstructive pulmonary disease with (acute) exacerbation Status: Acute (2) Hypercalcemia: Code(s): E83.52 - Hypercalcemia Status: Acute (3) Sepsis: Qualifiers: Sepsis type: sepsis due to unspecified organism Sepsis acute organ dysfunction status: with acute organ dysfunction Severe sepsis acute organ dysfunction type: acute respiratory failure Acute respiratory failure type: with hypoxia Severe sepsis shock status: without septic shock Qualified Code(s): A41.9 - Sepsis, unspecified organism; R65.20 - Severe sepsis without septic shock; J96.01 - Acute respiratory failure with hypoxia Code(s): A41.9 - Sepsis, unspecified organism Status: Acute (4) Acute hyponatremia: Code(s): E87.1 - Hypo-osmolality and hyponatremia Status: Acute (5) Pneumonia: Qualifiers: Laterality: bilateral Lung location: lower lobe of lung Pneumonia type: due to unspecified organism Qualified Code(s): J18.9 - Pneumonia, unspecified organism Code(s): J18.9 - Pneumonia, unspecified organism Status: Acute (6) Acute hypoxic respiratory failure: Code(s): J96.01 - Acute respiratory failure with hypoxia Status: Acute (7) Hypertension: Qualifiers: Hypertension type: primary hypertension Qualified Code(s): I10 - Essential (primary) hypertension Code(s): I10 - Essential (primary) hypertension Status: Acute (8) Infectious disease of immune system: Onset Date: ~10/02/23 Code(s): D89.89 - Other specified disorders involving the immune mechanism, not elsewhere classified; B99.9 - Unspecified infectious disease Status: Acute (9) Hyperlipidemia associated with type 2 diabetes mellitus: Code(s): E11.69 - Type 2 diabetes mellitus with other specified complication; E78.5 - Hyperlipidemia, unspecified Status: Acute (10) Diabetic peripheral neuropathy associated with type 2 diabetes mellitus: Code(s): E11.42 - Type 2 diabetes mellitus with diabetic polyneuropathy Status: Acute (11) Wbnua-nasnwc-hcug disease: Code(s): D89.813 - Gnflb-viifjz-aprr disease, unspecified Status: Acute (12) Chronic anticoagulation: Code(s): Z79.01 - 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 Status: Acute (13) Immunocompromised patient: Code(s): D84.9 - Immunodeficiency, unspecified Status: Acute (14) Insulin dependent type 2 diabetes mellitus: Code(s): E11.9 - Type 2 diabetes mellitus without complications; Z79.4 - termite renewal inspector (current) use of insulin Status: Acute (15) Acute myeloblastic leukemia, in remission: Code(s): C92.01 - Acute myeloblastic leukemia, in remission Status: Acute (16) Chronic pain syndrome: Code(s): G89.4 - Chronic pain syndrome Status: Acute (17) Leukocytosis: Code(s): D72.829 - Elevated white blood cell count, unspecified Status: Acute (18) Hyperlipidemia: Code(s): E78.5 - Hyperlipidemia, unspecified Status: Chronic (19) Right middle lobe pulmonary infiltrate: Code(s): R91.8 - Other nonspecific abnormal finding of lung field Status: Acute (20) Anxiety and depression: Code(s): F41.9 - Anxiety disorder, unspecified; F32.9 - Major depressive disorder, single episode, unspecified Status: Chronic (21) Tobacco dependence: Code(s): F17.200 - Nicotine dependence, unspecified, uncomplicated
--- NOTE | 2024-01-20 10:21 | PCRCNOTE ---
Home O2 eval complete. Patient does not require Day time Home O2. RN notified.
[2024-01-20 11:35] LABS: Glucose Point of Care 159 mg/dl (65-105)
--- NOTE | 2024-01-20 12:58 | PM.PNPUL ---
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 He has a history of severe centrilobular emphysema, as confirmed by a chest CT scan, and severe obstructive airway disease with a Forced Expiratory Volume in the first second of 1.32 L. His last Pulmonary Function Test? conducted several months ago, showed severe air trapping and lung hyperinflation. He has been consistently using bronchodilators for his COPD exacerbations and requires oxygen at night. 01/17/24: He recently presented with a one-day history of chest tightness. Diagnostic studies revealed new infiltrates, particularly in the posterior segments of the bilateral upper lobes. The patient is currently on antibiotics to cover potential cocci, as indicated by preliminary blood and sputum cultures. Considering his medical history and diagnostic results, especially the chest CT scan showing the distribution of new infiltrates and esophageal thickening, it's likely that the patient has aspiration pneumonia, which likely occurred while in a supine position. His physical exam showed no wheezing, and he has not been administered any IV steroids for COPD exacerbation. Plan: At this point, the treatment plan includes continuing the current regimen of short-acting bronchodilators and the patient's maintenance triple inhaler without the addition of steroids.? Given the distribution of new infiltrates, it's likely he has aspiration pneumonia, and coverage for anaerobes should be considered. If final reports of blood and sputum cultures do not indicate the presence of Staphylococcus aureus, I recommend adding anaerobe coverage and discontinue vancomycin.? MRSA screening is negative.? I will continue to monitor the patient's condition closely in collaboration with you. 01/20/24: the patient tells me he is breathing near normal. He denies any phlegm production. No wheezing. White blood cell count 10.7, creatinine 0.7, saturations on 4 L nasal cannula oxygen 95%. Blood with staff will coccus epidermidis. Sputum on 01/16/2024 with pansensitive Pseudomonas. Sputum on 01/17/2024 with pansensitive Pseudomonas aeruginosa. Of note the patient had pansensitive Pseudomonas from 09/28/2019. Repeat blood cultures on 01/18/2024 no growth. he tells me is smoking 1-2 cigarettes a day. Plan: Patient has improved on day 6 vancomycin and cefepime. Will continue to complete 7 days with plan on discharge on 01/21/24 with Augmentin 875-125 at 1 b.i.d. X 3 days and levofloxacin 750 mg p.o. q.day x3 days. continue current trelegy 100, montelukast 10. home O2 assessment today demonstrated no supplemental oxygen needed at rest or with ambulation. [facility] If the patient remains clinically stable will plan for discharge on 01/21/2024 on these pulmonary medications: Augmentin 875-125 at 1 tablet b.i.d. x3 days. Levofloxacin 750 mg p.o. q.day x3 days. Trelegy 100- 62.5-25 at 1 puff q.day Albuterol 2 puffs q.4 hours p.r.n. shortness of breath or wheezing Montelukast 10 mg p.o. q.day No oxygen at rest or with ambulation Oxygen at night per nocturnal oximetry which I have ordered. Smoking cessation was provided. Discussed with Dr. Drake, will follow with you. Subjective Date/time seen: 01/20/24 12:58 Interval history: 01/17/24 New pulmonary consult for Pneumonia,Hypoxic Respiratory Failure Narrative: This 58-year-old male came in with a one-day history of
[2024-01-20] MEDS: metroNIDAZOLE 500 MG TABLET PO ×2 (14:16→20:56)
[2024-01-20 17:04] LABS: Glucose Point of Care 189 mg/dl (65-105)
[2024-01-20] MEDS: RIVAROXABAN 20 MG TABLET PO (17:19)
[2024-01-20] MEDS: diphenhydrAMINE HCl CAP 25 MG CAPSULE PO (20:44)
[2024-01-20] MEDS: ACETAMINOPHEN 500 MG TABLET PO (20:44)
[2024-01-20] MEDS: MONTELUKAST SODIUM 10 MG TABLET PO (20:44)
[2024-01-20 20:59] LABS: Glucose Point of Care 154 mg/dl (65-105)
[2024-01-21] MEDS: metroNIDAZOLE 500 MG TABLET PO (06:34)
[2024-01-21] MEDS: ACYCLOVIR 400 MG TABLET PO (06:34)
[2024-01-21 07:50] LABS: Glucose Point of Care 120 mg/dl (65-105)
[2024-01-21] MEDS: FLUTICASONE/UMECLIDIN/VILANTER 100-62.5-25 MCG ELLIPTA 1 PUFF INHALATION (07:50)
[2024-01-21 07:55] VITALS: O2SAT 94
--- NOTE | 2024-01-21 08:48 | PM.PNPUL ---
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 He has a history of severe centrilobular emphysema, as confirmed by a chest CT scan, and severe obstructive airway disease with a Forced Expiratory Volume in the first second of 1.32 L. His last Pulmonary Function Test? conducted several months ago, showed severe air trapping and lung hyperinflation. He has been consistently using bronchodilators for his COPD exacerbations and requires oxygen at night. 01/17/24: He recently presented with a one-day history of chest tightness. Diagnostic studies revealed new infiltrates, particularly in the posterior segments of the bilateral upper lobes. The patient is currently on antibiotics to cover potential cocci, as indicated by preliminary blood and sputum cultures. Considering his medical history and diagnostic results, especially the chest CT scan showing the distribution of new infiltrates and esophageal thickening, it's likely that the patient has aspiration pneumonia, which likely occurred while in a supine position. His physical exam showed no wheezing, and he has not been administered any IV steroids for COPD exacerbation. Plan: At this point, the treatment plan includes continuing the current regimen of short-acting bronchodilators and the patient's maintenance triple inhaler without the addition of steroids.? Given the distribution of new infiltrates, it's likely he has aspiration pneumonia, and coverage for anaerobes should be considered. If final reports of blood and sputum cultures do not indicate the presence of Staphylococcus aureus, I recommend adding anaerobe coverage and discontinue vancomycin.? MRSA screening is negative.? I will continue to monitor the patient's condition closely in collaboration with you. 01/20/24: the patient tells me he is breathing near normal. He denies any phlegm production. No wheezing. White blood cell count 10.7, creatinine 0.7, saturations on 4 L nasal cannula oxygen 95%. Blood with staff will coccus epidermidis. Sputum on 01/16/2024 with pansensitive Pseudomonas. Sputum on 01/17/2024 with pansensitive Pseudomonas aeruginosa. Of note the patient had pansensitive Pseudomonas from 09/28/2019. Repeat blood cultures on 01/18/2024 no growth. he tells me is smoking 1-2 cigarettes a day. Plan: Patient has improved on day 6 vancomycin and cefepime. Will continue to complete 7 days with plan on discharge on 01/21/24 with Augmentin 875-125 at 1 b.i.d. X 3 days and levofloxacin 750 mg p.o. q.day x3 days. continue current trelegy 100, montelukast 10. home O2 assessment today demonstrated no supplemental oxygen needed at rest or with ambulation. [facility] 01[facility]: patient tells me he feels good today is breathing back to his baseline he has no wheezing. Currently is on room air with saturations 93%. Patient wore overnight oximetry on 4 L last night with a recording duration of 5 hours and 44 minutes. Average saturation 99%. Low saturation 96%. Time with saturation less than or equal to 88% was 0 minutes. Oxygen desaturation index 0.2. If the patient remains clinically stable will plan for discharge on 01/21/2024 on these pulmonary medications: Augmentin 875-125 at 1 tablet b.i.d. x3 days. Levofloxacin 750 mg p.o. q.day x3 days. Trelegy 100- 62.5-25 at 1 puff q.day Albuterol 2 puffs q.4 hours p.r.n. shortness of breath or wheezing Montelukast 10 mg p.o. q.day No oxygen
--- NOTE | 2024-01-21 09:11 | PM.DS ---
DS: Admitting Diagnosis Discharge Date 01/21/2024 Admitting Diagnosis Shortness of breath DS: Discharge Diagnosis Discharge Diagnosis Plan Assessment and Plan (1) COPD exacerbation: ?Code(s): J44.1 - Chronic obstructive pulmonary disease with (acute) exacerbation ?Status:?Acute (2) Hypercalcemia: ?Code(s): E83.52 - Hypercalcemia ?Status:?Acute (3) Sepsis: ?Qualifiers: ?Sepsis type:?sepsis due to unspecified organism??Sepsis acute organ dysfunction status:?with acute organ dysfunction??Severe sepsis acute organ dysfunction type:?acute respiratory failure??Acute respiratory failure type:?with hypoxia??Severe sepsis shock status:?without septic shock? Qualified Code(s):?A41.9 - Sepsis, unspecified organism; R65.20 - Severe sepsis without septic shock; J96.01 - Acute respiratory failure with hypoxia ?Code(s): A41.9 - Sepsis, unspecified organism ?Status:?Acute (4) Acute hyponatremia: ?Code(s): E87.1 - Hypo-osmolality and hyponatremia ?Status:?Acute (5) Pneumonia: ?Qualifiers: ?Laterality:?bilateral??Lung location:?lower lobe of lung??Pneumonia type:?due to unspecified organism? Qualified Code(s):?J18.9 - Pneumonia, unspecified organism ?Code(s): J18.9 - Pneumonia, unspecified organism ?Status:?Acute (6) Acute hypoxic respiratory failure: ?Code(s): J96.01 - Acute respiratory failure with hypoxia ?Status:?Acute (7) Hypertension: ?Qualifiers: ?Hypertension type:?primary hypertension? Qualified Code(s):?I10 - Essential (primary) hypertension ?Code(s): I10 - Essential (primary) hypertension ?Status:?Acute (8) Infectious disease of immune system: ?Onset Date:?~10/02/23 ?Code(s): D89.89 - Other specified disorders involving the immune mechanism, not elsewhere classified; B99.9 - Unspecified infectious disease ?Status:?Acute (9) Hyperlipidemia associated with type 2 diabetes mellitus: ?Code(s): E11.69 - Type 2 diabetes mellitus with other specified complication; E78.5 - Hyperlipidemia, unspecified ?Status:?Acute (10) Diabetic peripheral neuropathy associated with type 2 diabetes mellitus: ?Code(s): E11.42 - Type 2 diabetes mellitus with diabetic polyneuropathy ?Status:?Acute (11) Ottgc-oupjlo-odwz disease: ?Code(s): D89.813 - Hvett-suwfra-qojz disease, unspecified ?Status:?Acute (12) Chronic anticoagulation: ?Code(s): 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Acute (18) Hyperlipidemia: ?Code(s): E78.5 - Hyperlipidemia, unspecified ?Status:?Chronic (19) Right middle lobe pulmonary infiltrate: ?Code(s): R91.8 - Other nonspecific abnormal finding of lung field ?Status:?Acute (20) Anxiety and depression: ?Code(s): F41.9 - Anxiety disorder, unspecified; F32.9 - Major depressive disorder, single episode, unspecified ?Status:?Chronic (21) Tobacco dependence: ?Code(s): F17.200 - Nicotine dependence, unspecified, uncomplicated ?Status:?Acute Plan Admit patient to IMU under full inpatient status He has history of GVHD of lungs and eyes prompting him to take CellCept, tacrolimus and prednisone on a regular basis Patient admitted with sepsis caused by multifocal pneumonia Patient received aggressive IV hydration
[2024-01-21] MEDS: VORICONAZOLE 200 MG TABLET PO (09:31)
[2024-01-21] MEDS: mycophenolate mofetiL 250 MG CAPSULE 1000 MG PO (09:31)
[2024-01-21] MEDS: OMEGA 3 POLYUNSAT FATTY ACIDS 1 GM CAP 2 GM PO (09:31)
[2024-01-21 09:32] VITALS: PULSE 96
[2024-01-21] MEDS: CYANOCOBALAMIN 1,000 MCG TABLET 1000 MCG PO (09:32)
[2024-01-21] MEDS: guaiFENesin 600 MG/DEXTROMETHORPHAN 30 MG SR TAB 12 HR 1 TAB PO (09:32)
[2024-01-21] MEDS: CLOPIDOGREL BISULFATE 75 MG TABLET PO (09:32)
[2024-01-21] MEDS: POTASSIUM CHLORIDE 20 MEQ PACKET (FOR LIQUID) 40 MEQ PO (09:32)
[2024-01-21] MEDS: METOPROLOL SUCCINATE EXT REL 25 MG TABCR PO (09:32)
[2024-01-21] MEDS: ATORVASTATIN 40 MG TABLET PO (09:32)
[2024-01-21] MEDS: MAGNESIUM OXIDE 400 MG TABLET PO (09:32)
[2024-01-21] MEDS: FERROUS SULFATE 325 MG TABLET DR PO (09:33)
[2024-01-21] MEDS: CEFEPIME 2 GM/NS 50 ML 2 GM/50 ML BAG IVPB (09:37)
[2024-01-21 11:25] LABS: Glucose Point of Care 156 mg/dl (65-105)
[2024-01-22 12:22] LABS: Soluble Transferrin Receptor 0.89 mg/L (0.76-1.76)
== END 2024-01-21 11:45 | disposition home health service (06) | DRG 871 ==
LOC: ANHED 20:28 → ANHIMU 21:04 → ANH3MEDSUR 01-17 16:19 → ANHIMU 01-22 15:58
PROVIDERS: Emergency Medicine; Family Medicine; Nurse Practitioner Family; Student in an Organized Health Care Education/Training Program; Admitting Provider Internal Medicine; Emergency Provider Emergency Medicine; PCP Internal Medicine; Visit Provider Internal Medicine
DX: A41.1 Sepsis due to other specified staphylococcus (principal); J69.0 Pneumonitis due to inhalation of food and vomit; J96.21 Acute and chronic respiratory failure with hypoxia; J44.0 Chronic obstructive pulmonary disease with (acute) lower respiratory infection; J44.1 Chronic obstructive pulmonary disease with (acute) exacerbation; E87.1 Hypo-osmolality and hyponatremia; C92.01 Acute myeloblastic leukemia, in remission; Z94.81 Bone marrow transplant status; D89.813 Graft-versus-host disease, unspecified; D84.821 Immunodeficiency due to drugs; R65.20 Severe sepsis without septic shock; I11.0 Hypertensive heart disease with heart failure; I50.9 Heart failure, unspecified; I95.9 Hypotension, unspecified; E83.52 Hypercalcemia; E83.42 Hypomagnesemia; E11.42 Type 2 diabetes mellitus with diabetic polyneuropathy; F32.A Depression, unspecified; F41.9 Anxiety disorder, unspecified; F17.210 Nicotine dependence, cigarettes, uncomplicated; I25.2 Old myocardial infarction; Z20.822 Contact with and (suspected) exposure to COVID-19; Z79.01 Long term (current) use of 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; Z99.81 Dependence on supplemental oxygen; Z86.718 Personal history of other venous thrombosis and embolism; Z79.4 Long term (current) use of insulin; Z86.711 Personal history of pulmonary embolism; Z95.5 Presence of coronary angioplasty implant and graft
CPT/HCPCS: 36415; 36600; 71045; 71275; 74177; 80048; 80053; 80202; 82565; 82607; 82728; 82746; 82805; 82948; 83540; 83550; 83605; 83615; 83735; 83921; 84100; 84238; 84484; 85025; 85610; 85730; 87040; 87070; 87077; 87181; 87184; 87186; 87205; 87449; 87493; 87637; 87641; 87899; 93005; 94618; 94640; 94762; 96361; 96365; 96368; 99285; A9270; J0456; J0692; J0696; J1200; J1756; J1815; J2405; J3370; J3420; J3475; J7030; J7050; J7517; Q9967

== ENCOUNTER 2024-01-27 12:10 | Outpatient (NON) | payer MEDICARE, MEDICAID, SELFPAY ==
[2024-01-27 13:09] LABS: Basophils Absolute Auto 0.1 K/mm3 (0.0-0.1); Basophils Percent Auto 0.6 % (0.2-1.2); Eosinophils Absolute Auto 0.2 K/mm3 (0-0.3); Hematocrit 31.9 % (42.0-52.0); Hemoglobin 10.2 g/dL (14.0-18.0); Immature Granulocyte Absolute 0.05 K/mm3 (0.00-0.031); Immature Granulocyte Percent A 0.5 % (0-0.5); Lymphocytes Absolute Auto 3.04 K/mm3 (0.9-3.2); Lymphocytes Percent Auto 30.9 % (18.3-44.2); Mean Corpuscular Hemoglobin 34.7 pg (26-34); Mean Corpuscular Volume 108.5 fl (80-100); Mean Platelet Volume 9.8 fl (7.4-10.4); Monocytes Absolute Auto 1.4 K/mm3 (0.1-0.6); Monocytes Percent Auto 14.2 % (2.6-8.5); Neutrophils Absolute Auto 5.1 K/mm3 (1.3-6.7); Neutrophils Percent Auto 51.8 % (45.5-73.1); Nucleated Red Blood Cells Perc 0.3 % (0.0-0.2); Platelet Count Result 387 k/mm3 (150-375); Red Blood Count 2.94 M/mm3 (4.6-6.20); Red Cell Distribution Width 14.9 % (11.5-14.5); White Blood Count 9.8 K/mm3 (4.5-10.0)
[2024-01-27 13:26] LABS: Alanine Aminotransferase 22 U/L (6-50); Albumin Level 3.5 g/dL (3.5-5.1); Alkaline Phosphatase 115 U/L (38-126); Anion Gap 3 mmol/L (8-16); Aspartate Amino Transferase 54 U/L (17-59); Bilirubin,Total 0.3 mg/dL (0.2-1.3); Blood Urea Nitrogen 17 mg/dL (9-20); Calcium 8.9 mg/dL (8.4-10.2); Carbon Dioxide 31 mmol/L (22-30); Chloride 99 mmol/L (98-107); Estimated Glomerular Filt Rate > 60; Glucose 169 mg/dL (65-110); Potassium 3.7 mmol/L (3.4-5.0); Sodium 133 mmol/L (137-145)
[2024-01-27 14:11] LABS: Hypochromasia 1+ (NORMAL); Platelet Estimate Adequate (Adequate); Schistocytes None Seen (NORMAL); Target Cells 1+ (NORMAL)
== END 2024-01-27 12:11 | disposition home or self-care (01) ==
PROVIDERS: PCP Internal Medicine; Visit Provider Internal Medicine
DX: A41.9 Sepsis, unspecified organism (principal); J44.1 Chronic obstructive pulmonary disease with (acute) exacerbation
CPT/HCPCS: 80053; 85025

== ENCOUNTER 2024-02-19 22:09 | Emergency (ER) | payer MEDICARE, MEDICAID, SELFPAY ==
[2024-02-19] VITALS (8 sets, daily range): BP systolic 106–174; BP diastolic 72–101; PULSE 108; RESP 22; TEMP 36.9; O2SAT 95–100
[2024-02-20] VITALS (32 sets, daily range): BP systolic 139–172; BP diastolic 75–111; PULSE 74; RESP 14; O2SAT 95–100
[2024-02-20] MEDS: ONDANSETRON INJ 4 MG/2 ML VIAL IV PUSH (00:27)
[2024-02-20] MEDS: FAMOTIDINE 20 MG/2 ML VIAL IV PUSH (00:27)
[2024-02-20] MEDS: GLUCAGON FOR INJ 1 MG VIAL IV PUSH (00:27)
[2024-02-20 00:53] LABS: Alanine Aminotransferase 20 U/L (6-50); Albumin Level 3.9 g/dL (3.5-5.1); Alkaline Phosphatase 128 U/L (38-126); Anion Gap 4 mmol/L (4-12); Aspartate Amino Transferase 43 U/L (17-59); Bilirubin,Total 0.6 mg/dL (0.2-1.3); Blood Urea Nitrogen 19 mg/dL (9-20); Calcium 9.2 mg/dL (8.4-10.2); Carbon Dioxide 33 mmol/L (22-30); Chloride 101 mmol/L (98-107); Estimated CRCL calculation 108 ml/min; Estimated Glomerular Filt Rate > 60; Glucose 136 mg/dL (65-110); Sodium 138 mmol/L (137-145)
--- NOTE | 2024-02-20 00:53 | ED.GENADULT ---
HPI - General Adult General Chief complaint: Unspecified <MARTITA Allen Last Filed: 02/20/24 17:16> Stated complaint: food bolus <MARTITA Allen Last Filed: 02/20/24 17:16> Time Seen by Provider: 02/20/24 00:12 <MARTITA Allen Last Filed: 02/20/24 17:16> Source: patient <MARTITA Allen Last Filed: 02/20/24 17:16> Mode of arrival: ambulatory <MARTITA Allen Last Filed: 02/20/24 17:16> Limitations: no limitations <MARTITA Allen Last Filed: 02/20/24 17:16> History of Present Illness HPI narrative: Patient presents to the emergency department for food bolus. Reports he was eating steak and felt like it got stuck. He has been vomiting since. Unable to tolerate p.o. intake. Reports some epigastric discomfort. <Delmy Smith PA-C - Last Filed: 02/20/24 17:16> Related Data Home medications: Home Medications Medication Instructions Recorded Confirmed rivaroxaban 20 mg tablet (Xarelto) 20 mg PO QPM 02/06/23 01/15/24 Oxygen 4 l Not Applicable 01/28/24 carbamide peroxide 6.5 % ear drops 5 drp EACH EAR Q12H 01/28/24 (Debrox) guaifenesin 1,200 mg tablet, 1,200 mg PO BID 01/28/24 extended release 12 hr (Mucinex) nicotine 21 mg/24 hr daily 1 patch transdermal DAILY 01/28/24 transdermal patch <MARTITA Allen Last Filed: 02/20/24 17:16> Allergies/adverse reactions: Allergies Allergy/AdvReac Type Severity Reaction Status Date / Time adhesive Allergy Unknown Hives Verified 07/26/23 10:51 adhesive tape Allergy Unknown PAPER Unverified 01/21/24 12:20 TAPE,REDNESS AND IRRITATION <MARTITA Allen Last Filed: 02/20/24 17:16> Review of Systems Review of Systems: CONSTITUTIONAL: Denies fever GASTROINTESTINAL: Reports abdominal pain, nausea, vomiting <Delmy Smith PA-C - Last Filed: 02/20/24 17:16> All systems reviewed & are unremarkable except as noted in HPI and below <Delmy Smith PA-C - Last Filed: 02/20/24 17:16> [facility] Past Medical History Medical History: Medical History (Updated 02/20/24 @ 03:02 by Delmy Smith PA-C) 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 Anxiety CAD (coronary artery disease) Chronic anticoagulation Chronic obstructive pulmonary disease Chronic respiratory failure with hypoxia On 5 liters nasal cannula at nighttime. Deep venous thrombosis Depression Eczema Emphysema/COPD Hyperglycemia Hyperlipidemia Immunocompromised patient Patient on anti rejection medications. 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 Peripheral neuropathy Peyronie's disease Peyronie's disease Positive nasal culture for methicillin resistant Staphylococcus aureus Pulmonary emboli Sciatica ST elevation (STEMI) myocardial infarction (12/30/22) <Delmy Smith PA-C - Last Filed: 02/20/24 17:16> Surgical History Surgical History: Surgical History (Updated 01/16/24 @ 14:08 by Betty Loyd APRN) History of heart artery stent 12/30/2022 100% occlusion mid RCA with drug-eluting stent, left coronary system with dnur-qp-gjnyihgt disease History of orthopedic surgery Left tibia liz placement History of stem cell transplant Status post cataract extraction of both eyes with insertion of intraocular lens <Delmy Smith PA-C - Last Filed: 02/20/24 17:16> Family History Family History: Family History (Updated 01/16/24 @ 00:58 by Grecia Clifton DO) Mother Acute myocardial infarction, Onset Age: 42 Father COPD (chronic obstructive pulmonary disease) Diabetes mellitus Alcohol abuse <Delmy Smith PA-C - Last Filed: 02/20/24 17:16> Social History Social History: Social History Social History: Surrogate medical decision
[2024-02-20 02:12] LABS: Basophils Absolute Auto 0.1 K/mm3 (0.0-0.1); Basophils Percent Auto 0.3 % (0.2-1.2); Eosinophils Absolute Auto 0.1 K/mm3 (0-0.3); Eosinophils Percent Auto 0.4 % (0-4.4); Hematocrit 35.5 % (42.0-52.0); Hemoglobin 11.7 g/dL (14.0-18.0); Immature Granulocyte Percent A 0.5 % (0-0.5); Lymphocytes Absolute Auto 4.77 K/mm3 (0.9-3.2); Lymphocytes Percent Auto 24.8 % (18.3-44.2); Mean Corpuscular Hemoglobin 34.8 pg (26-34); Mean Corpuscular Volume 105.7 fl (80-100); Monocytes Absolute Auto 1.3 K/mm3 (0.1-0.6); Monocytes Percent Auto 6.8 % (2.6-8.5); Neutrophils Percent Auto 67.2 % (45.5-73.1); Platelet Count Result 373 k/mm3 (150-375); Red Blood Count 3.36 M/mm3 (4.6-6.20); Red Cell Distribution Width 15.9 % (11.5-14.5); White Blood Count 19.3 K/mm3 (4.5-10.0)
[2024-02-20 02:30] LABS: Platelet Estimate Adequate (Adequate)
[2024-02-20 02:31] LABS: Anisocytosis 1+; Schistocytes None Seen; Target Cells 1+
--- NOTE | 2024-02-20 03:11 | PC.NURSE ---
Dr. Deleon [place] Hospitalist will accept transfer of pt. Pt will wait for a bed.
--- NOTE | 2024-02-20 03:15 | PC.NURSE ---
[facility] transfer line updated on vs, sliv.
--- NOTE | 2024-02-20 03:56 | PC.NURSE ---
Melissa kinney - 2mg morphine iv
[2024-02-20] MEDS: MORPHINE SULFATE (*CRX) 2 MG/ML INJ IV PUSH (04:05)
--- NOTE | 2024-02-20 05:04 | PC.NURSE ---
[facility] Disc [place] [id number] Bed A [phone] Nurse to Nurse report RN to RN called to [facility] Cama[facility]
--- NOTE | 2024-02-20 05:49 | PC.NURSE ---
EMS report given to [facility] at this time.
== END 2024-02-20 05:55 | disposition short-term general hospital (02) ==
PROVIDERS: Emergency Provider Physician Assistant; PCP Internal Medicine
DX: T18.8XXA Foreign body in other parts of alimentary tract, initial encounter (principal); I25.10 Atherosclerotic heart disease of native coronary artery without angina pectoris; I25.2 Old myocardial infarction; J43.9 Emphysema, unspecified; J96.11 Chronic respiratory failure with hypoxia; Z99.81 Dependence on supplemental oxygen; E78.5 Hyperlipidemia, unspecified; E11.42 Type 2 diabetes mellitus with diabetic polyneuropathy; N48.6 Induration penis plastica; Z94.81 Bone marrow transplant status; Z94.84 Stem cells transplant status; Z95.5 Presence of coronary angioplasty implant and graft; Z85.6 Personal history of leukemia; Z86.718 Personal history of other venous thrombosis and embolism; Z86.711 Personal history of pulmonary embolism; Z87.891 Personal history of nicotine dependence; Z96.1 Presence of intraocular lens; Z98.42 Cataract extraction status, left eye; Z98.41 Cataract extraction status, right eye; Z79.01 Long term (current) use of 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; Z79.4 Long term (current) use of insulin; W44.F3XA Food entering into or through a natural orifice, initial encounter
CPT/HCPCS: 36415; 80053; 85025; 96374; 96375; 99285; J1610; J2270; J2405

== ENCOUNTER 2024-05-28 11:28 | Outpatient (CLI) | payer MEDICARE, SELFPAY ==
--- NOTE | ~2024-05-28 | CT_ITS ---
CT Scan of the Chest without Contrast: Clinical Indication: Pulmonary nodule Technique: Contiguous sections were acquired throughout the chest without intravenous contrast. Dose reduction technique was used on this scan by utilizing automated exposure control and iterative recon struction technique. The dose-length product (DLP) was 136.75 mGy-cm. COMPARISON: 01/15/2024 Findings: There is no evidence of any significant mediastinal, hilar or axillary lymphadenopathy. The mediastin al soft tissues appear normal. There is no evidence of pleural or pericardial effusion. There is much more extensive right apical/right upper lobe consolidation, with areas of internal cavi tation or necrosis now present. There are 5 mm irregular lingular pulmonary nodules (axial images 116 , 113). There are additional scattered subcentimeter left upper lobe pulmonary nodules, largest measu ring 8-9 mm (axial image 54). There is an irregular area of consolidation in the posterior medial lef t upper lobe measuring 3.0 x 1.9 cm (axial image 38), new from prior exam. There is a 6 mm irregular nodule in the right middle lobe. Underlying advanced emphysema present. Images through the upper abdomen reveal no abnormalities. Impression: Much more extensive right apical/right upper lobe consolidation, now with internal cavitation or necr osis. Findings could reflect worsening necrotizing pneumonia versus possibly cavitating neoplasm. Cor relate clinically. Consider tissue sampling as indicated. New pleural-based irregular consolidation at the posterior medial left upper lobe, as detailed above, which could reflect additional pneumonia versus possibly atelectatic change, or even neoplasm. Additional irregular subcentimeter pulmonary nodules, as above, some of which are new as compared to prior exam, which could reflect infectious/inflammatory process versus neoplastic lesions. Advanced emphysema. Reviewed, dictated and finalized at [facility]. Impression: Much more extensive right apical/right upper lobe consolidation, now with inter nal cavitation or necrosis. Findings could reflect worsening necrotizing pneumo tanya versus possibly cavitating neoplasm. Correlate clinically. Consider tissue sampling as indicated. New pleural-based irregular consolidation at the posterior medial left upper lo be, as detailed above, which could reflect additional pneumonia versus possibly atelectatic change, or even neoplasm. Additional irregular subcentimeter pulmonary nodules, as above, some of which a re new as compared to prior exam, which could reflect infectious/inflammatory p rocess versus neoplastic lesions. Advanced emphysema.
== END 2024-05-28 11:29 | disposition home or self-care (01) ==
PROVIDERS: PCP Internal Medicine; Visit Provider Internal Medicine Pulmonary Disease
DX: R91.1 Solitary pulmonary nodule (principal); J43.9 Emphysema, unspecified; R91.8 Other nonspecific abnormal finding of lung field
CPT/HCPCS: 71250

== ENCOUNTER 2024-07-21 17:32 | Emergency (ER) | payer MEDICARE, SELFPAY ==
[2024-07-21] VITALS (31 sets, daily range): BP systolic 122–148; BP diastolic 79–99; PULSE 104–129; RESP 14–28; TEMP 36.6; O2SAT 99–100
--- NOTE | ~2024-07-21 | XR_ITS ---
EXAMINATION: XR chest 1V portable DATE: 07/22/2024 19:53 INDICATION: Dyspnea. TECHNIQUE: A single frontal view of the chest was obtained on 2 radiographs. COMPARISON: Chest single view 07/21/2024 FINDINGS: There are lucencies in the lungs, consistent with emphysema. There are airspace opacities w ith volume loss and cavitation in right upper lobe. There are mild airspace opacities in all of the o ther lung zones. No pleural effusion or pneumothorax. The heart size is normal. IMPRESSION: 1. Diffuse lung disease, worst in right upper lobe and stable from 07/21/2024, consistent with pneumoni a. 2. Emphysema. Reviewed, dictated and finalized at location A. IMPRESSION: 1. Diffuse lung disease, worst in right upper lobe and stable from 07/21/2024, co nsistent with pneumonia. 2. Emphysema.
--- NOTE | ~2024-07-21 | XR_ITS ---
EXAMINATION: XR chest 1V portable DATE: 07/21/2024 18:43 INDICATION: Shortness of breath. TECHNIQUE: A single frontal view of the chest was obtained on 2 radiographs. COMPARISON: Chest single view 01/15/2024, chest CT 05/28/2024 FINDINGS: There are lucencies in the lungs, consistent with emphysema. There are airspace opacities i n right upper lobe with cavitation and volume loss. There are airspace opacities in left upper lobe. No pleural effusion or pneumothorax. The heart size is normal. IMPRESSION: 1. Airspace opacities in the upper lobes, right worse than left with cavitation on the right, stable from 05/28/2024, consistent with pneumonia. 2. Emphysema. Reviewed, dictated and finalized at location A.
--- NOTE | ~2024-07-21 | CT_ITS ---
EXAMINATION: CTA chest PE protocol DATE: 07/21/2024 21:53 INDICATION: Shortness of breath. TECHNIQUE: Computed tomography angiography (CTA) of the chest was performed with 100 mL Omnipaque-350 intravenous contrast timed to evaluate the pulmonary arteries. Coronal maximum intensity projection 3D-reconstructions were created by the technologist. Automated exposure control and iterative reconst ruction technique were employed. The dose-length product was 501.49 mGy-cm. COMPARISON: Chest CT 05/28/2024 FINDINGS: There is moderate emphysema. There are airspace opacities with cavitation in right upper lo be. There are scattered smaller airspace opacities in the upper lobes and lower lobes. There is mucou s plugging in the left lower lobe. There is partial collapse of right middle lobe. No pleural effusio n. The heart size is normal. There are coronary artery calcifications. No pericardial effusion. There is no pulmonary embolus. There is mild thoracic spondylosis. IMPRESSION: 1. No pulmonary embolus. 2. Multifocal pneumonia, worsened from 05/28/2024. 3. Moderate emphysema. Reviewed, dictated and finalized at location A.
--- NOTE | 2024-07-21 17:51 | ECG_ITS ---
Test Date: 2024-07-21 22:39:07 Measurements Intervals [place] Rate: 110 P: 78 AL: 137 QRS: 97 QRSD: 93 T: 0 QT: 358 QTc: 485 Interpretive Statements SINUS TACHYCARDIA RIGHT AXIS DEVIATION DELAYED PRECORDIAL R/S TRANSITION NONSPECIFIC ST & T-WAVE ABNORMALITY- DIFFUSE LEADS ABNORMAL ECG No previous ECG available for comparison Electronically Signed On 07-22-2024 06:36:46 CDT by Cal Carranza D.O.
[2024-07-21] MEDS: ALBUTEROL SULFATE NEB 2.5 MG/3 ML INH 10 MG INHALATION (18:05)
[2024-07-21] MEDS: ALBUTEROL SULFATE NEB 2.5 MG/3 ML INH 10 MG (18:05)
[2024-07-21] MEDS: IPRATROPIUM BR 0.02% INH SOLN 0.5 MG/2.5 ML VIAL 1 MG INHALATION (18:05)
[2024-07-21] MEDS: IPRATROPIUM BR 0.02% INH SOLN 0.5 MG/2.5 ML VIAL 1 MG (18:05)
[2024-07-21 18:09] LABS: Hematocrit 29.4 % (42.0-52.0); Hemoglobin 9.2 g/dL (14.0-18.0); Mean Corpuscular HGB Conc 31.3 g/dl (32-36); Mean Corpuscular Hemoglobin 33.6 pg (26-34); Mean Corpuscular Volume 107.3 fl (80-100); Mean Platelet Volume 10.7 fl (7.4-10.4); Platelet Count Result 389 k/mm3 (150-375); Red Blood Count 2.74 M/mm3 (4.6-6.20); Red Cell Distribution Width 18.8 % (11.5-14.5); White Blood Count 14.9 K/mm3 (4.5-10.0)
[2024-07-21 18:14] LABS: Band Neutrophils Percent 4 % (0-6); Lymphocytes Absolute Manual 0.14 K/mm3 (1.1-4.5); Lymphocytes Percent Manual 1 % (18-44); Monocytes Absolute Manual 0.44 K/mm3 (0.1-0.90); Monocytes Percent Manual 3 % (3-9); Neutrophils Percent Manual 92 % (46-73); Total Cells Counted 100
[2024-07-21 18:15] LABS: Large Platelets Present; Ovalocytes 1+; Platelet Estimate Increased (Adequate); Schistocytes None Seen; Target Cells 1+
--- NOTE | 2024-07-21 18:17 | ED.SOB ---
HPI - SOB/Dyspnea General Chief Complaint: Shortness of Breath/Dyspnea <Delmy Smith PA-C - Last Filed: 07/24/24 09:31> Stated Complaint: SOB, recent pna dx <MARTITA Allen Last Filed: 07/24/24 09:31> Time Seen by Provider: 07/21/24 17:54 <Delmy Smith PA-C - Last Filed: 07/24/24 09:31> Source: patient <MARTITA Allen Last Filed: 07/24/24 09:31> Mode of arrival: EMS <MARTITA Allen Last Filed: 07/24/24 09:31> Limitations: no limitations <MARTITA Allen Last Filed: 07/24/24 09:31> History of Present Illness HPI Narrative: This is a 58 year old male that presents to the ER for shortness of breath. Worsening over the last 3 days. Reports recently being discharged from another ER with oral steroids without relief. History of COPD and CHF. Reports a chronic cough. Denies fevers. <Delmy Smith PA-C - Last Filed: 07/24/24 09:31> Related Data Home Medications: Home Medications Medication Instructions Recorded Confirmed rivaroxaban 20 mg tablet (Xarelto) 20 mg PO QAM 02/06/23 01/15/24 Oxygen 4 l Not Applicable 01/28/24 carbamide peroxide 6.5 % ear drops 5 drp EACH EAR Q12H 01/28/24 (Debrox) guaifenesin 1,200 mg tablet, 1,200 mg PO BID 01/28/24 extended release 12 hr (Mucinex) nicotine 21 mg/24 hr daily 1 patch transdermal DAILY PRN 01/28/24 transdermal patch Nicotine Cravings gabapentin 300 mg capsule 300 mg PO TID PRN muscle spasms 07/22/24 (Neurontin) <MARTITA Allen Last Filed: 07/24/24 09:31> Allergies/Adverse Reactions: Allergies Allergy/AdvReac Type Severity Reaction Status Date / Time adhesive Allergy Unknown Hives Verified 07/21/24 18:59 adhesive tape Allergy Unknown PAPER Verified 07/21/24 18:59 TAPE,REDNESS AND IRRITATION <Delmy Smith PA-C - Last Filed: 07/24/24 09:31> Review of Systems Review of Systems: CONSTITUTIONAL: Denies fever CARDIOVASCULAR: Reports edema. Denies chest pain RESPIRATORY: Reports cough and dyspnea. 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 Anxiety CAD (coronary artery disease) Chronic anticoagulation Chronic obstructive pulmonary disease Chronic respiratory failure with hypoxia On 5 liters nasal cannula at nighttime. Deep venous thrombosis Depression Eczema Emphysema/COPD Hyperglycemia Hyperlipidemia Immunocompromised patient Patient on anti rejection medications. 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 Peripheral neuropathy Peyronie's disease Peyronie's disease Positive nasal culture for methicillin resistant Staphylococcus aureus Pulmonary emboli Sciatica ST elevation (STEMI) myocardial infarction (12/30/22) <MARTITA Allen Last Filed: 07/24/24 09:31> Surgical History Surgical History: Surgical History (Updated 01/16/24 @ 14:08 by Betty Loyd APRN) History of heart artery stent 12/30/2022 100% occlusion mid RCA with drug-eluting stent, left coronary system with rxaa-ux-pevhleye disease History of orthopedic surgery Left tibia liz placement History of stem cell transplant Status post cataract extraction of both eyes with insertion of intraocular lens <MARTITA Allen Last Filed: 07/24/24 09:31> Family History Family History: Family History (Updated 01/16/24 @ 00:58 by Grecia Clifton DO) Mother Acute myocardial infarction, Onset Age: 42 Father COPD (chronic obstructive pulmonary disease) Diabetes mellitus Alcohol abuse <UMAIR Allen
[2024-07-21 18:24] LABS: Alanine Aminotransferase 26 U/L (6-50); Albumin Level 3.5 g/dL (3.5-5.1); Alkaline Phosphatase 139 U/L (38-126); Anion Gap 10 mmol/L (4-12); Aspartate Amino Transferase 56 U/L (17-59); Bilirubin,Total 0.3 mg/dL (0.2-1.3); Blood Urea Nitrogen 24 mg/dL (9-20); Calcium 8.2 mg/dL (8.4-10.2); Carbon Dioxide 31 mmol/L (22-30); Chloride 97 mmol/L (98-107); Estimated CRCL calculation 87 ml/min; Estimated Glomerular Filt Rate > 60; Glucose 387 mg/dL (65-110); Potassium 4.9 mmol/L (3.4-5.0); Sodium 138 mmol/L (137-145)
[2024-07-21] MEDS: MAGNESIUM SULF 2 GM/WATER 50ML 2 GM/50 ML BAG IVPB (18:29)
[2024-07-21] MEDS: methylPREDNISolone SOD SUCC 125 MG VIAL IV PUSH (18:29)
[2024-07-21 18:37] LABS: NT Pro B Type Natriuretic Pept > 30000 pg/mL (19.9-100)
[2024-07-21 18:38] LABS: CRP 3.9 mg/dL (<1.0)
[2024-07-21 18:43] LABS: Influenza A QL RT-PCR Negative (Negative); Influenza B QL RT-PCR Negative (Negative); RSV RNA, RT-PCR Negative (Negative); SARS-CoV-2 RNA PCR Negative (Negative)
[2024-07-21 18:59] LABS: Beta-Hydroxybutyrate/Acetoacetate 0.17 mmol/L (0.02-0.27)
[2024-07-21] MEDS: FUROSEMIDE INJ 40 MG/4 ML VIAL IV PUSH (19:10)
[2024-07-21 19:12] LABS: Magnesium 1.6 mg/dL (1.6-2.3); Phosphorus 3.9 mg/dL (2.5-4.5)
[2024-07-21 19:27] LABS: D Dimer 2.35 ug/mL (<0.48)
[2024-07-21 19:31] LABS: Lactic Acid Reflex 3.1 mmol/L (0.7-2.0)
[2024-07-21 19:37] LABS: Alveolar/Arterial O2 Gradient 164.5 mmHg; Carboxyhemoglobin 0.2 % THb (0-2.0); Fractional Inspired Oxygen 50 %; Methemoglobin ABG 0.1 %THb (0-1.5); Oxygen Content ABG 13.9 %vol (16.0-22.0); Oxygen Saturation ABG 98.6 % (95.0-100.0); Oxyhemoglobin 98.8 % THb (90.0-100.0); PCO2 ABG 52.4 mmHg (35.0-45.0); PO2 ABG 133.1 mmHg (80.0-100.0); PO2 FiO2 Ratio Arterial Blood 2.66 %; Reduced Hemoglobin 0.9 %THb (0-5.0); Total Hemoglobin 9.8 g/dL (12.0-18.0); pH ABG 7.375 (7.350-7.450)
[2024-07-21 19:38] LABS: Device NON-INVASIVE VENT; Modified Allen's Test Pass
[2024-07-21 19:39] LABS: Non-Invasive Expiratory Pressure 7 CMH2O; Non-Invasive Inspiratory Pressure 14 CMH2O; Non-Invasive Vent Rate 16 /MIN; Site Drawn LEFT RADIAL
[2024-07-21] MEDS: cefTRIAXone 2 GM/NS 100 ML 2 GM/100 ML BAG IVPB (19:43)
[2024-07-21 19:48] LABS: Troponin I 0.063 ng/mL (0.000-0.034)
--- NOTE | 2024-07-21 19:57 | PCRCNOTE ---
Pt was placed on a continuous nebulizer at 1813. ABG ordered while patient was on this treatment. RT waited until patient was completed with nebulizer treatment before drawing ABG. Pt on bipap at this time. MARTITA Smith, aware.
[2024-07-21] MEDS: AZITHROMYCIN 500 MG/NS 250 ML 500 MG/250 ML BAG 250 MG IVPB (20:11)
[2024-07-21 20:34] LABS: MRSA (PCR) NOT DETECTED (NOT DETECTE)
[2024-07-21] MEDS: VANCOMYCIN 1,500 MG/NS 500 ML 1,500 MG/500 ML BAG 250 MG IVPB (21:21)
--- NOTE | 2024-07-21 22:10 | ECG_ITS ---
Test Date: 2024-07-21 17:42:32 Measurements Intervals [place] Rate: 121 P: 71 CT: 141 QRS: 97 QRSD: 90 T: -85 QT: 338 QTc: 480 Interpretive Statements SINUS TACHYCARDIA RIGHT AXIS DEVIATION DELAYED PRECORDIAL R/S TRANSITION NONSPECIFIC ST-T WAVE ABNORMALITY- ANTEROLAT/INF LEADS BASELINE ARTIFACT- I, III, AVR, AVL, AVF, V1-V6 ABNORMAL ECG No previous ECG available for comparison Electronically Signed On 07-22-2024 08:27:25 CDT by Cal Carranza D.O.
[2024-07-21 22:20] LABS: Reflex Lactic Acid Yes or No Add Lactic
[2024-07-21] MEDS: ONDANSETRON INJ 4 MG/2 ML VIAL IV PUSH (22:25)
[2024-07-21] MEDS: PANTOPRAZOLE SODIUM IV 40 MG VIAL IV PUSH (22:25)
[2024-07-21 23:28] LABS: Lactic Acid 3.4 mmol/L (0.7-2.0)
[2024-07-21 23:48] LABS: Troponin I 0.069 ng/mL (0.000-0.034)
[2024-07-22] VITALS (67 sets, daily range): BP systolic 115–148; BP diastolic 74–99; PULSE 107–124; RESP 11–24; TEMP 36.7–37.1; O2SAT 18–100
--- NOTE | 2024-07-22 00:24 | PC.NURSE ---
[facility] access line states that pt is on [facility] wait list and will call back in the morning with a bed update.
[2024-07-22] MEDS: MORPHINE SULFATE (*CRX) 2 MG/ML INJ IV PUSH (00:45)
[2024-07-22 00:46] LABS: Lipase 286 U/L (23-300)
[2024-07-22] MEDS: IPRATROPIUM 0.5 MG/ALBUTEROL SULFATE 2.5 MG AMPUL.NEB 3 ML INHALATION ×3 (01:27→18:55)
--- NOTE | 2024-07-22 05:53 | ECG_ITS ---
Test Date: 2024-07-22 05:53:50 Measurements Intervals [place] Rate: 113 P: 76 NE: 133 QRS: 90 QRSD: 94 T: 0 QT: 270 QTc: 370 Interpretive Statements SINUS TACHYCARDIA DELAYED PRECORDIAL R/S TRANSITION NONSPECIFIC ST & T-WAVE ABNORMALITY- DIFFUSE LEADS BASELINE ARTIFACT- V4-V6 ABNORMAL ECG Compared to ECG 07/21/2024 22:39:07 NO SIGNIFICANT CHANGE Electronically Signed On 07-22-2024 08:26:07 CDT by Cal Carranza D.O.
[2024-07-22 06:20] LABS: Estimated CRCL calculation 87 ml/min; Estimated Glomerular Filt Rate > 60
[2024-07-22 06:36] LABS: Troponin I 0.059 ng/mL (0.000-0.034)
[2024-07-22] MEDS: ALBUTEROL SULFATE NEB 2.5 MG/3 ML INH INHALATION ×2 (07:53→14:10)
[2024-07-22] MEDS: FLUTICASONE/UMECLIDIN/VILANTER 200-62.5-25 MCG ELLIPTA 1 PUFF INHALATION (08:03)
[2024-07-22] MEDS: predniSONE 20 MG TABLET 60 MG PO (08:07)
[2024-07-22] MEDS: PANTOPRAZOLE 40 MG TABLET PO (08:08)
[2024-07-22] MEDS: CLOPIDOGREL BISULFATE 75 MG TABLET PO (08:08)
[2024-07-22] MEDS: ETHAMBUTOL HCL 400 MG TABLET 1200 MG PO (08:08)
[2024-07-22] MEDS: mycophenolate mofetiL 250 MG CAPSULE 1000 MG PO ×2 (08:08→21:26)
[2024-07-22] MEDS: VANCOMYCIN 1,250 MG/NS 250 ML 1,250 MG/250 ML BAG 166.67 MG IVPB ×2 (08:09→21:29)
[2024-07-22] MEDS: TACROLIMUS 0.5 MG CAPSULE PO (08:09)
[2024-07-22] MEDS: VORICONAZOLE 200 MG TABLET PO ×2 (08:09→21:26)
[2024-07-22] MEDS: CEFEPIME 2 GM/NS 50 ML 2 GM/50 ML BAG IVPB ×2 (11:13→18:47)
[2024-07-22] MEDS: ATORVASTATIN 40 MG TABLET PO (11:13)
[2024-07-22 12:44] LABS: Glucose Point of Care 414 mg/dl (65-105)
[2024-07-22] MEDS: FUROSEMIDE INJ 40 MG/4 ML VIAL IV PUSH (13:19)
--- NOTE | 2024-07-22 16:49 | PC.NURSE ---
pt blood sugar taken at this time. pt sugar in the 500s
[2024-07-22 16:50] LABS: Glucose Point of Care > 500 mg/dl (65-105)
[2024-07-22] MEDS: INSULIN HUMAN REGULAR (*BKC) 100 UNITS/ML 9 UNITS IV PUSH (16:58)
[2024-07-22] MEDS: RIVAROXABAN 20 MG TABLET PO (17:00)
[2024-07-22 18:04] LABS: Glucose Point of Care 456 mg/dl (65-105)
[2024-07-22] MEDS: NICOTINE (*PBKC) 21 MG PATCH 1 PATCH TRANSDERM (18:46)
[2024-07-22] MEDS: AZITHROMYCIN 500 MG/NS 250 ML 500 MG/250 ML BAG 250 MG IVPB (20:15)
[2024-07-22 20:53] LABS: Hematocrit 25.7 % (42.0-52.0); Hemoglobin 8.5 g/dL (14.0-18.0); Mean Corpuscular HGB Conc 33.1 g/dl (32-36); Mean Corpuscular Volume 102.8 fl (80-100); Mean Platelet Volume 10.9 fl (7.4-10.4); Platelet Count Result 347 k/mm3 (150-375); Red Cell Distribution Width 18.4 % (11.5-14.5); White Blood Count 14.6 K/mm3 (4.5-10.0)
[2024-07-22 21:07] LABS: Lymphocytes Absolute Manual 0.14 K/mm3 (1.1-4.5); Monocytes Absolute Manual 0.87 K/mm3 (0.1-0.90); Monocytes Percent Manual 6 % (3-9); Neutrophils Percent Manual 93 % (46-73); Nucleated Red Blood Cells 10 %; Total Cells Counted 100
[2024-07-22 21:08] LABS: Platelet Estimate Adequate (Adequate)
[2024-07-22 21:09] LABS: Anisocytosis 2+; Polychromasia 1+; Schistocytes None Seen
[2024-07-22 21:10] LABS: Macrocytosis 1+ (NORMAL)
[2024-07-22 21:13] LABS: Alanine Aminotransferase 26 U/L (6-50); Alkaline Phosphatase 120 U/L (38-126); Anion Gap 7 mmol/L (4-12); Aspartate Amino Transferase 37 U/L (17-59); Bilirubin,Total 0.3 mg/dL (0.2-1.3); Blood Urea Nitrogen 29 mg/dL (9-20); Calcium 7.4 mg/dL (8.4-10.2); Carbon Dioxide 37 mmol/L (22-30); Chloride 89 mmol/L (98-107); Estimated CRCL calculation 87 ml/min; Estimated Glomerular Filt Rate > 60; Glucose 363 mg/dL (65-110); Potassium 3.4 mmol/L (3.4-5.0); Sodium 133 mmol/L (137-145)
[2024-07-22 21:39] LABS: Glucose Point of Care 379 mg/dl (65-105)
--- NOTE | 2024-07-22 21:46 | PC.NURSE ---
talked to Tiffanie at [facility] transfer center. there is no bed yet. updated on pt status
[2024-07-22] MEDS: methylPREDNISolone SOD SUCC 125 MG VIAL 60 MG IV PUSH (22:54)
[2024-07-23] VITALS (30 sets, daily range): BP systolic 113–158; BP diastolic 76–97; PULSE 100–142; RESP 15–25; TEMP 36.4–36.9; O2SAT 91–100
[2024-07-23 00:30] LABS: Glucose Point of Care 360 mg/dl (65-105)
--- NOTE | 2024-07-23 00:33 | PC.NURSE ---
moody ray - order insulin sliding scale.
[2024-07-23] MEDS: INSULIN ASPART (*BKC) 100 UNITS/ML SUB-Q ×2 (00:48→12:24)
[2024-07-23] MEDS: IPRATROPIUM 0.5 MG/ALBUTEROL SULFATE 2.5 MG AMPUL.NEB 3 ML INHALATION ×3 (01:30→13:26)
--- NOTE | 2024-07-23 02:21 | PC.NURSE ---
ed RT notified pt wants to come off bipap.
--- NOTE | 2024-07-23 03:03 | PC.NURSE ---
Addendum entered by Fadia Gonzalez RN 07/23/24 03:04: dr ray Original Note: vrbo seroquel 50mg now
[2024-07-23] MEDS: CEFEPIME 2 GM/NS 50 ML 2 GM/50 ML BAG IVPB ×3 (03:07→17:30)
[2024-07-23] MEDS: QUEtiapine FUMARATE 25 MG TABLET 50 MG PO (03:09)
[2024-07-23] MEDS: methylPREDNISolone SOD SUCC 125 MG VIAL 60 MG IV PUSH ×3 (06:56→17:31)
--- NOTE | 2024-07-23 08:26 | PCRCNOTE ---
DPI NOT GIVEN AT THIS TIME, PT. ON CONT. BIPAP AT THE MOMENT.
[2024-07-23] MEDS: NICOTINE (*PBKC) 21 MG PATCH 1 PATCH TRANSDERM (08:31)
[2024-07-23] MEDS: PANTOPRAZOLE 40 MG TABLET PO (08:31)
[2024-07-23] MEDS: mycophenolate mofetiL 250 MG CAPSULE 1000 MG PO (08:31)
[2024-07-23] MEDS: VORICONAZOLE 200 MG TABLET PO (08:31)
[2024-07-23] MEDS: CLOPIDOGREL BISULFATE 75 MG TABLET PO (08:31)
[2024-07-23] MEDS: ATORVASTATIN 40 MG TABLET PO (08:31)
[2024-07-23] MEDS: ETHAMBUTOL HCL 400 MG TABLET 1200 MG PO (08:32)
[2024-07-23] MEDS: predniSONE 20 MG TABLET 60 MG PO (08:32)
--- NOTE | 2024-07-23 08:32 | ECG_ITS ---
Test Date: 2024-07-23 09:47:26 Measurements Intervals [place] Rate: 117 P: 89 [place]: 126 QRS: 96 QRSD: 97 T: -90 QT: 322 QTc: 450 Interpretive Statements SINUS TACHYCARDIA RIGHT AXIS DEVIATION DELAYED PRECORDIAL R/S TRANSITION BORDERLINE ST-T WAVE ABNORMALITY- DIFFUSE LEADS BASELINE ARTIFACT- I, II, III, AVR, AVL, AVF, V4 ABNORMAL ECG Compared to ECG 07/22/2024 05:53:50 NO SIGNIFICANT CHANGE Electronically Signed On 07-23-2024 11:04:59 CDT by Cal Carranza D.O.
[2024-07-23] MEDS: INSULIN HUMAN REGULAR (*BKC) 100 UNITS/ML 10 UNITS IV PUSH ×2 (08:43→10:48)
[2024-07-23 08:48] LABS: Glucose Point of Care 453 mg/dl (65-105)
[2024-07-23 08:56] LABS: Estimated CRCL calculation 100 ml/min; Estimated Glomerular Filt Rate > 60
--- NOTE | 2024-07-23 08:58 | PC.NURSE ---
ordered food tray at [phone]
--- NOTE | 2024-07-23 09:21 | PC.NURSE ---
pt given breakfast tray
--- NOTE | 2024-07-23 09:41 | PC.NURSE ---
934 called [facility] still waiting on bed could take a few days
[2024-07-23 09:53] LABS: Vancomycin Trough 22.5 ug/mL (10.0-20.0)
[2024-07-23 10:29] LABS: Glucose Point of Care 404 mg/dl (65-105)
--- NOTE | 2024-07-23 10:39 | PC.NURSE ---
pt blood glucose checked, result of [address] Osorio, verbal order of 10 units regular insulin IV given by Dr. Osorio
--- NOTE | 2024-07-23 11:18 | PC.NURSE ---
ordered lunch tray [id number]
[2024-07-23 12:09] LABS: Glucose Point of Care 357 mg/dl (65-105)
[2024-07-23] MEDS: INSULIN ASPART (*BKC) 100 UNITS/ML 6 UNITS SUB-Q ×2 (12:24→17:31)
--- NOTE | 2024-07-23 12:30 | PC.NURSE ---
pt given 11 units of Novolog subq pt had 6 units due t had 5 units for corrective dose
--- NOTE | 2024-07-23 12:32 | PC.NURSE ---
called dietary for update on pts tray. dietary states tray was never ordered, tray then ordered by this RN.
[2024-07-23 14:35] LABS: Glucose Point of Care 269 mg/dl (65-105)
--- NOTE | 2024-07-23 17:21 | PC.NURSE ---
order food tray at [phone]
[2024-07-23] MEDS: RIVAROXABAN 20 MG TABLET PO (17:31)
[2024-07-23 17:38] LABS: Glucose Point of Care 188 mg/dl (65-105)
--- NOTE | 2024-07-23 18:54 | PC.NURSE ---
1849 [facility] called with a bed 1852 called house moving supervisor for house truck to transfer [facility]
--- NOTE | 2024-07-23 19:32 | PC.NURSE ---
Yessenia Staton from [facility] transfer center states pt will be going to room 6232 at [facility]
--- NOTE | 2024-07-23 21:01 | PC.NURSE ---
EMS arrives to pickup patient
== END 2024-07-23 21:17 | disposition short-term general hospital (02) ==
PROVIDERS: Emergency Medicine; Emergency Provider Physician Assistant; PCP Internal Medicine
DX: J96.21 Acute and chronic respiratory failure with hypoxia (principal); J96.22 Acute and chronic respiratory failure with hypercapnia; J18.9 Pneumonia, unspecified organism; Z20.822 Contact with and (suspected) exposure to COVID-19; J43.9 Emphysema, unspecified; I50.9 Heart failure, unspecified; I25.2 Old myocardial infarction; I25.10 Atherosclerotic heart disease of native coronary artery without angina pectoris; Z99.81 Dependence on supplemental oxygen; E78.5 Hyperlipidemia, unspecified; E11.42 Type 2 diabetes mellitus with diabetic polyneuropathy; N48.6 Induration penis plastica; Z94.84 Stem cells transplant status; Z86.718 Personal history of other venous thrombosis and embolism; Z85.6 Personal history of leukemia; Z86.711 Personal history of pulmonary embolism; Z95.5 Presence of coronary angioplasty implant and graft; Z96.1 Presence of intraocular lens; Z98.42 Cataract extraction status, left eye; Z98.41 Cataract extraction status, right eye; Z87.891 Personal history of nicotine dependence; Z79.01 Long term (current) use of 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; R00.0 Tachycardia, unspecified; R94.31 Abnormal electrocardiogram [ECG] [EKG]
CPT/HCPCS: 36415; 36600; 71045; 71275; 80053; 80202; 82010; 82375; 82565; 82805; 82948; 83050; 83605; 83690; 83735; 83880; 84100; 84484; 85025; 85380; 86140; 87040; 87070; 87077; 87186; 87205; 87637; 87641; 93005; 94002; 94003; 94640; 96365; 96366; 96367; 96368; 96375; 96376; 99285; A9270; J0456; J0692; J0696; J1815; J1940; J2270; J2405; J2470; J2919; J3370; J3475; J7512; J7517; Q9967

== ENCOUNTER 2024-10-23 00:08 | Inpatient (IN) | payer MEDICARE, SELFPAY ==
[2024-10-23] VITALS (26 sets, daily range): BP systolic 111–156; BP diastolic 60–88; PULSE 68–120; RESP 12–26; TEMP 36.6–36.8; O2SAT 92–100; BMI 17.5; BMI 18.7
--- NOTE | ~2024-10-23 | XR_ITS ---
Portable chest x-ray Comparison: 07/22/2024 Clinical History: Dyspnea, COPD Findings: Stable right apical scarring and pleural thickening. COPD pattern of the lungs unchanged. Probable mild interstitial prominence left lung base, unchanged. Stable irregular focal opacity later al right midlung. Cardiomediastinal silhouette is stable. Bones and soft tissues are unremarkable. Impression: No interval change. COPD with stable extensive right apical consolidation and scarring/pleural thicke ceasar. Additional focal airspace opacity peripheral right midlung. Stable mild interstitial prominence left lung base, nonspecific. Reviewed, dictated and finalized at location [facility] Impression: No interval change. COPD with stable extensive right apical consolidation and s carring/pleural thickening. Additional focal airspace opacity peripheral right midlung. Stable mild interstitial prominence left lung base, nonspecific.
--- NOTE | ~2024-10-23 | CT_ITS ---
Clinical Indication: Pneumonia CT Scan of the Chest with Contrast: Technique: Contiguous sections were acquired throughout the chest after intravenous administration of 75 cc of Omnipaque 350. Dose reduction technique was used on this scan by utilizing automated exposu re control and iterative reconstruction technique. The dose-length product (DLP) was 177.42 mGy-cm. COMPARISON: 07/21/2024 Findings: There is no evidence of any significant mediastinal, hilar or axillary lymphadenopathy. There is no f illing defect in the pulmonary arterial tree to suggest pulmonary embolus. There is no evidence of ao rtic dissection or aneurysm. There is no evidence of pleural or pericardial effusion. Extensive irregular right apical consolidation with areas of cavitation versus bronchiectasis versus necrotic change are similar to prior exam. Stable focal pleural-based irregular consolidation in the posterior left lung apex. Stable small probable irregular pulmonary nodules more inferiorly in the ri ght upper lobe patchy airspace consolidation/opacities in the superior segment left lower lobe are st able to minimally improved. Stable focal scarring the posterior aspect of the right lower lobe (axial image 92). There is increased airspace consolidation at the left lung base posteriorly, which could reflect pneumonia versus atelectasis or scarring. Stable airspace consolidation at the right lung bas e. Additional scattered subcentimeter nodules in the lingula and left lower lobe are unchanged. There is advanced emphysema. Small amount of debris present dependently in the trachea. Images through the upper abdomen reveal no abnormalities. Impression: Extensive irregular right apical consolidation with areas of cavitation versus bronchiectasis or poss ibly necrotic change are similar to prior exam. Multiple additional areas of irregular consolidation and/or nodularity throughout the lungs, largely stable from prior exam, but with focal worsening at the left lung base. Vascular fact chronic postinf lammatory change with additional new infection or atelectasis or scarring at the left lung base. Clin ical correlation advised. Underlying advanced emphysema. Reviewed, dictated and finalized at location [facility]. [facility] Impression: Extensive irregular right apical consolidation with areas of cavitation versus bronchiectasis or possibly necrotic change are similar to prior exam. Multiple additional areas of irregular consolidation and/or nodularity througho ut the lungs, largely stable from prior exam, but with focal worsening at the l eft lung base. Vascular fact chronic postinflammatory change with additional ne w infection or atelectasis or scarring at the left lung base. Clinical correlat ion advised. Underlying advanced emphysema.
--- NOTE | 2024-10-23 00:14 | ECG_ITS ---
Test Date: 2024-10-23 00:15:29 Measurements Intervals [place] Rate: 110 P: 81 [place]: 139 QRS: 109 QRSD: 93 T: 102 QT: 378 QTc: 512 Interpretive Statements SINUS TACHYCARDIA WITH FREQUENT PVCs MARKED RIGHT AXIS DEVIATION [QRS AXIS > 100] BASELINE ARTIFACT LIMITS INTERPRETATION Compared to ECG 07/23/2024 09:47:26 PVCS NOW PRESENT Electronically Signed On 10-23-2024 12:44:30 [employer] by Chin La M.D.
--- NOTE | 2024-10-23 00:14 | ED_ITS ---
HPI - SOB/Dyspnea General Chief Complaint: Shortness of Breath/Dyspnea Stated Complaint: SOB Time Seen by Provider: 10/23/24 00:10 Source: patient Mode of arrival: EMS Limitations: no limitations History of Present Illness HPI Narrative: This is a 58-year-old male with COPD, diabetes type 2, leukemia who presents to the ED via EMS for chief complaint of sudden-onset shortness of breath this started this evening. Patient was getting up from bed to go to the restroom and started to feel extremely winded. He has been out of his albuterol for nebulizers for the past 2+ weeks. States that he has been dealing with a little bit of shortness of breath, however tonight it got much worse. Reports that he is normally on 3 L but will have to move up to 5 L O2 ever once in a while. He comes to the ER saturating 92% on 3 L. he was given DuoNeb and Decadron en route Related Data Home Medications Medication Instructions Recorded Confirmed rivaroxaban 20 mg tablet (Xarelto) 20 mg PO QAM 02/06/23 10/23/24 Oxygen 4 l Not Applicable 01/28/24 gabapentin 300 mg capsule 300 mg PO QID 07/22/24 10/23/24 (Neurontin) albuterol sulfate 2.5 mg/3 mL 2.5 mg inhalation Q6H PRN 10/23/24 10/23/24 (0.083 %) solution for nebulization Shortness Of Breath albuterol sulfate 90 mcg/actuation 1 puff inhalation Q4-6H PRN 10/23/24 10/23/24 aerosol inhaler Shortness Of Breath Or Wheezing atorvastatin 40 mg tablet (Lipitor) 40 mg PO HS 10/23/24 10/23/24 cholecalciferol (vitamin D3) 25 50 mcg PO DAILY 10/23/24 10/23/24 mcg (1,000 unit) tablet clofazimine 50 mg capsule 100 mg PO DAILY 10/23/24 10/23/24 cyanocobalamin (vitamin B-12) 1,000 mcg PO DAILY 10/23/24 10/23/24 1,000 mcg tablet empagliflozin 10 mg tablet 10 mg PO DAILY 10/23/24 10/23/24 (Jardiance) fluticasone fur. 200 mcg-umeclid 1 inh inhalation DAILY 10/23/24 10/23/24 62.5 mcg-vilant 25 mcg inhalat.powder (Trelegy Ellipta) guaifenesin 600 mg tablet, 600 mg PO Q12H 10/23/24 10/23/24 extended release 12 hr (Mucinex) metoprolol succinate 25 mg 12.5 mg PO DAILY 10/23/24 10/23/24 tablet,extended release 24 hr nicotine 21 mg/24 hr daily 1 patch transdermal DAILY 10/23/24 10/23/24 transdermal patch omega-3 acid ethyl esters 1 gram 1 cap PO DAILY 10/23/24 10/23/24 capsule (Lovaza) ondansetron 4 mg disintegrating 4 mg PO Q8H PRN Nausea And Vomiting 10/23/24 10/23/24 tablet pantoprazole 40 mg tablet,delayed 40 mg PO Q12H 10/23/24 10/23/24 release voriconazole 200 mg tablet 200 mg PO Q12H 10/23/24 10/23/24 Allergies Allergy/AdvReac Type Severity Reaction Status Date / Time adhesive tape AdvReac Unknown PAPER Verified 10/23/24 05:58 TAPE,REDNESS AND IRRITATION Review of Systems Review of Systems: All systems as dictated in [facility] Past Medical History Medical History 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 Anxiety CAD (coronary artery disease) Chronic anticoagulation Chronic obstructive pulmonary disease Chronic respiratory failure with hypoxia On 5 liters nasal cannula at nighttime. Deep venous thrombosis Depression Eczema Emphysema/COPD Hyperglycemia Hyperlipidemia Immunocompromised patient Patient on anti rejection medications. 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 Peripheral neuropathy Peyronie's disease Peyronie's disease Positive nasal culture for methicillin resistant Staphylococcus aureus Pulmonary emboli Sciatica ST elevation (STEMI) myocardial infarction (12/30/22) Surgical History Surgical History History of heart artery stent 12/30/2022 100% occlusion mid RCA with drug-eluting stent, left coronary system with siqk-th-xtzewmfb disease History of orthopedic surgery Left tibia liz placement History of stem cell transplant Status post cataract extraction of both eyes with insertion of intraocular lens Family History Family History Mother Acute myocardial infarction, Onset Age: 42 Father COPD (chronic obstructive pulmonary disease) Diabetes mellitus Alcohol abuse Social History Social History Social History: Surrogate medical decision maker: Lissy Kasier, friend/roommate. Code status: Full code. Years smoked: 44 Smoking status: Current some day smoker Tobacco type: cigarettes Smoking end date: 08/07/22 Additional smoking assessment comments: on nicotine patches, states he is currently on patches Alcohol intake: never Substance use: never Substance use type: does not use Do You Feel Safe in your Home?: Yes Lack of Transportation: No Lack of Food: Never True Current Housing: I Have Housing Concerned About Future Housing: No Difficulty Paying Gas/Electric Bills: YES Difficulty Paying for Meds: No Currently Unemployed: No Education: High School Diploma/GED Difficulty w/ Childcare or Family Care: No Living arrangements: with friend(s) Additional living arrangements comments: He lives with his roommate in [place]. Occupation/Education: unemployed Spiritual care concerns: No Agree to blood products: Yes Exam Narrative: GENERAL: Appears chronically ill. HEAD: Normocephalic, atraumatic. EYES: PERRLA and EOMI. ENT: Nares clear, no rhinorrhea or epistaxis. Mucous membranes moist. Oropharynx without tonsillar hypertrophy exudate or other lesions. NECK: Supple. No adenopathy or masses. CHEST: Increased work of breathing present. Abdominal muscle use and accessory muscle use present. Speaking in 2-3 word sentences. Bilateral wheezes heard. Prolonged expiratory phase HEART: Regular rate and rhythm. No murmur heard. Normal peripheral pulses. ABDOMEN: Soft, nontender, nondistended, normal active bowel sounds. MSK: Normal range of motion. No edema. SKIN: Warm, dry, no rash. NEURO: Alert and oriented x4. No focal deficits. PSYCH: Normal mood and affect. Course Reevaluation(s) Reevaluation #1: Patient is feeling slightly improved on the BiPAP. His work of breathing does seem decreased. He is now ventilating more. Date: 10/23/24 Time: 02:35 Vital Signs Vital signs: Vital Signs Temperature 98.1 F 10/23/24 00:08 Pulse Rate 68 10/23/24 00:08 Respiratory Rate 18 10/23/24 00:08 Blood Pressure 134/88 10/23/24 00:08 Pulse Oximetry 92 10/23/24 00:08 Oxygen Delivery Nasal Cannula 10/23/24 00:08 Oxygen Flow Rate 2 10/23/24 00:08 Temperature 97.9 F 10/24/24 00:00 Pulse Rate 87 10/24/24 02:38 Respiratory Rate 20 10/24/24 02:38 Blood Pressure 108/63 10/24/24 00:00 Pulse Oximetry 96 10/24/24 00:00 Oxygen Delivery Nasal Cannula 10/23/24 21:13 Oxygen Flow Rate 2 10/23/24 21:13 MDM - SOB/Dyspnea MDM Narrative Medical decision making narrative: This is a 58-year-old male who presents to the ED for COPD exacerbation. Vitals show initial tachycardia and hypoxia on room air. Exam shows labored breathing with accessory muscle use but maintaining saturations. Patient was started on BiPAP due to the increased work of breathing. Hour long nebulizers started. Lab work shows mildly elevated white count of 11.7. ABG shows some CO2 retention but no severe findings. CMP unremarkable overall. BNP unremarkable. Chest x-ray I initially showing some patchy infiltrate to the right upper lung. CT chest was added on and is pending stat read read. Discussed the patient with the hospitalist to recommends admission for observation to the IMU. Patient is understanding and agreeable with this plan. Admitted in stable condition. Lab Data 10/23/24 10:01 10/23/24 10:01 Labs: Lab Results 10/23/24 10/23/24 Range/Units 00:28 00:51 WBC 11.7 H (4.5-10.0) K/mm3 RBC 3.40 L (4.6-6.20) M/mm3 Hgb 11.9 L D (14.0-18.0) g/dL Hct 36.3 L (42.0-52.0) % MCV 106.8 H (80-100) fl MCH 35.0 H (26-34) pg MCHC 32.8 (32-36) g/dl RDW 13.6 (11.5-14.5) % Plt Count 415 H (150-375) k/mm3 MPV 10.4 (7.4-10.4) fl Immature Gran % (Auto) 0.4 (0-0.5) % Neut % (Auto) 58.8 (45.5-73.1) % Lymph % (Auto) 30.4 (18.3-44.2) % [place] % (Auto) 6.8 (2.6-8.5) % Eos % (Auto) 2.8 (0-4.4) % Baso % (Auto) 0.8 (0.2-1.2) % Lymph # (Auto) 3.55 H (0.9-3.2) K/mm3 [place] # (Auto) 0.8 H (0.1-0.6) K/mm3 Eos # (Auto) 0.3 (0-0.3) K/mm3 Baso # (Auto) 0.1 (0.0-0.1) K/mm3 Abs Immat Gran (auto) 0.05 H (0.00-0.031) K/mm3 Absolute Neuts (auto) 6.9 H (1.3-6.7) K/mm3 Absolute Nucleated RBC 0.000 (0.0-0.012) K/mm3 Nucleated RBC % 0.0 (0.0-0.2) % Expiratory Pressure 5 CMH2O Inspiratory Pressure 10 CMH2O Sodium 138 (137-145) mmol/L Potassium 4.2 (3.4-5.0) mmol/L Chloride 102 (98-107) mmol/L Carbon Dioxide 33 H (22-30) mmol/L Anion Gap 3 L (4-12) mmol/L BUN 16 D (9-20) mg/dL Creatinine 0.70 (0.7-1.3) mg/dL Estim Creat Clear Calc 68 ml/min Estimated GFR > 60 (59 - ) Glucose 189 H (65-110) mg/dL Calcium 9.4 (8.4-10.2) mg/dL Total Bilirubin 0.5 (0.2-1.3) mg/dL AST 48 (17-59) U/L ALT 26 (6-50) U/L Alkaline Phosphatase 182 H (38-126) U/L Troponin I < 0.012 (0.000-0.034) ng/mL NT-Pro-B Natriuret Pep 769 H (19.9-100) pg/mL Total Protein 8.0 (6.3-8.2) g/dL Albumin 4.0 (3.5-5.1) g/dL ABG Data ABG results: 10/23/24 00:28 Puncture Site Right brachial ABG pH 7.372 ABG pCO2 51.5 H ABG pO2 87.4 ABG PO2/FiO2 Ratio 2.50 ABG HCO3 29.2 H ABG O2 Saturation 96.3 ABG O2 Content 16.0 ABG Base Excess 3.1 A-a Gradient 102.3 Oxyhemoglobin 96.1 Total Hemoglobin 11.8 L O2 Delivery Device Non-invasive vent O2 Liters/Min Not Reportable Vent Rate 16 FiO2 35 Discharge Plan Discharge Clinical Impression: Acute exacerbation of chronic obstructive pulmonary disease Patient Disposition: Still a Patient Condition: Stable
[2024-10-23] MEDS: ALBUTEROL SULFATE NEB 2.5 MG/3 ML INH 10 MG INHALATION (00:38)
[2024-10-23] MEDS: IPRATROPIUM BR 0.02% INH SOLN 0.5 MG/2.5 ML VIAL 1 MG INHALATION (00:39)
[2024-10-23 00:46] LABS: Alveolar/Arterial O2 Gradient 102.3 mmHg; Base Excess ABG 3.1 mEq/l (+/-2.0); Fractional Inspired Oxygen 35 %; HCO3 ABG 29.2 mEq/l (22.0-26.0); Oxygen Saturation ABG 96.3 % (95.0-100.0); Oxyhemoglobin 96.1 % THb (90.0-100.0); PCO2 ABG 51.5 mmHg (35.0-45.0); PO2 ABG 87.4 mmHg (80.0-100.0); Site Drawn RIGHT BRACHIAL; Total Hemoglobin 11.8 g/dL (12.0-18.0); pH ABG 7.372 (7.350-7.450)
[2024-10-23 00:47] LABS: Device NON-INVASIVE VENT; Non-Invasive Expiratory Pressure 5 CMH2O; Non-Invasive Inspiratory Pressure 10 CMH2O; Non-Invasive Vent Rate 16 /MIN
[2024-10-23 01:20] LABS: Alanine Aminotransferase 26 U/L (6-50); Alkaline Phosphatase 182 U/L (38-126); Anion Gap 3 mmol/L (4-12); Aspartate Amino Transferase 48 U/L (17-59); Bilirubin,Total 0.5 mg/dL (0.2-1.3); Blood Urea Nitrogen 16 mg/dL (9-20); Calcium 9.4 mg/dL (8.4-10.2); Carbon Dioxide 33 mmol/L (22-30); Chloride 102 mmol/L (98-107); Estimated CRCL calculation 68 ml/min; Estimated Glomerular Filt Rate > 60; Glucose 189 mg/dL (65-110); Potassium 4.2 mmol/L (3.4-5.0); Sodium 138 mmol/L (137-145)
[2024-10-23 01:29] LABS: NT Pro B Type Natriuretic Pept 769 pg/mL (19.9-100); Troponin I < 0.012 ng/mL (0.000-0.034)
[2024-10-23 01:31] LABS: Basophils Absolute Auto 0.1 K/mm3 (0.0-0.1); Basophils Percent Auto 0.8 % (0.2-1.2); Eosinophils Absolute Auto 0.3 K/mm3 (0-0.3); Eosinophils Percent Auto 2.8 % (0-4.4); Hematocrit 36.3 % (42.0-52.0); Hemoglobin 11.9 g/dL (14.0-18.0); Immature Granulocyte Absolute 0.05 K/mm3 (0.00-0.031); Immature Granulocyte Percent A 0.4 % (0-0.5); Lymphocytes Absolute Auto 3.55 K/mm3 (0.9-3.2); Lymphocytes Percent Auto 30.4 % (18.3-44.2); Mean Corpuscular HGB Conc 32.8 g/dl (32-36); Mean Corpuscular Volume 106.8 fl (80-100); Mean Platelet Volume 10.4 fl (7.4-10.4); Monocytes Absolute Auto 0.8 K/mm3 (0.1-0.6); Monocytes Percent Auto 6.8 % (2.6-8.5); Neutrophils Absolute Auto 6.9 K/mm3 (1.3-6.7); Neutrophils Percent Auto 58.8 % (45.5-73.1); Platelet Count Result 415 k/mm3 (150-375); Red Cell Distribution Width 13.6 % (11.5-14.5); White Blood Count 11.7 K/mm3 (4.5-10.0)
[2024-10-23] MEDS: AZITHROMYCIN 500 MG/NS 250 ML 500 MG/250 ML BAG 250 MG IVPB (03:03)
[2024-10-23] MEDS: methylPREDNISolone SOD SUCC 125 MG VIAL 80 MG IV PUSH ×3 (03:32→21:11)
[2024-10-23 04:09] LABS: Influenza A QL RT-PCR Negative (Negative); Influenza B QL RT-PCR Negative (Negative); RSV RNA, RT-PCR Negative (Negative); SARS-CoV-2 RNA PCR Negative (Negative)
--- NOTE | 2024-10-23 04:39 | PM.IMHP ---
H&P: HPI History of Present Illness Date/Time: 10/23/24 04:39 Chief Complaint: Acute worsening shortness of breath Narrative: 58-year-old male well known to me from prior hospitalization with past medical coronary artery disease with STEMI December 2022, AML status post bone marrow transplant (2008) with chronic dqrhi-rroppg-jmrm disease, COPD with chronic hypoxic respiratory failure, DVT/PE and diabetes who presented to the ER from home via EMS due to increasing shortness of breath. The patient reported to ER staff they have been out of his nebulizer treatments for a couple of weeks. Tonight he became more short of breath when he was trying to ambulate from the restroom back to his bed. He received DuoNeb treatment and Decadron in the field. Patient's oxygen saturations were in the 60s initially on presentations patient's residence but improved up to the 80s with increasing oxygen up to 5 L nasal cannula. He reports that he has been out of his nebulizer treatments for a week or so. He reports that he last had is DuoNeb filled 3 months ago and he was waiting for the refill to be ready where his insurance would pay for it. He states that he will uses nebulizer treatment anywhere from once a day up to 3 or 4 times a day. He has not noticed any increased cough from baseline. He denies fevers or chills. He denies any nausea or vomiting. His weight is down about 3 kg compared to his hospital stay and July. He reports that his appetite is good and request food now. He reports that shortness of breath improved significantly after received nebulizer treatment and steroids in the ER. He has not been on any recent antibiotic therapy. Review of Systems Review of Systems: 12 systems were reviewed with pertinent positives and negatives per HPI. Except as documented in the HPI, all other systems were reviewed and are negative. 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 Anxiety CAD (coronary artery disease) Chronic anticoagulation Chronic obstructive pulmonary disease Chronic respiratory failure with hypoxia On 5 liters nasal cannula at nighttime. Deep venous thrombosis Depression Eczema Emphysema/COPD Hyperglycemia Hyperlipidemia Immunocompromised patient Patient on anti rejection medications. 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 Peripheral neuropathy Peyronie's disease Peyronie's disease Positive nasal culture for methicillin resistant Staphylococcus aureus Pulmonary emboli Sciatica ST elevation (STEMI) myocardial infarction (12/30/22) Surgical History Surgical History History of heart artery stent 12/30/2022 100% occlusion mid RCA with drug-eluting stent, left coronary system with mhfq-tz-txijjazh disease History of orthopedic surgery Left tibia liz placement History of stem cell transplant Status post cataract extraction of both eyes with insertion of intraocular lens Family History Family History Mother Acute myocardial infarction, Onset Age: 42 Father COPD (chronic obstructive pulmonary disease) Diabetes mellitus Alcohol abuse Social History Social History Social History: Surrogate medical decision maker: Lissy Kaiser, friend/roommate. Code status: Full code. Years smoked: 44 Smoking status: Current some day smoker Tobacco type: cigarettes Smoking end date: 08/07/22 Additional smoking assessment comments: on nicotine patches, states he is currently on patches Alcohol intake: never Substance use: never Substance use type: does not use Do You Feel Safe in your Home?: Yes Lack of Transportation: No Lack of Food: Never True Current Housing: I Have Housing Concerned About Future Housing: No Difficulty Paying Gas/Electric Bills: YES Difficulty Paying for Meds: No Currently Unemployed: No Education: High School Diploma/GED Difficulty w/ Childcare or Family Care: No Living arrangements: with friend(s) Additional living arrangements comments: He lives with his roommate in [place]. Occupation/Education: unemployed Spiritual care concerns: No Agree to blood products: Yes Meds Home Medications and Allergies Home Medications Medication Instructions Recorded Confirmed Type rivaroxaban 20 mg tablet (Xarelto) 20 mg PO QAM 02/06/23 10/23/24 History Oxygen 4 l Not Applicable 01/28/24 History acyclovir 400 mg tablet 400 mg PO TID #90 tabs 01/28/24 10/23/24 Rx clopidogrel 75 mg tablet 75 mg PO DAILY #90 tabs 01/28/24 10/23/24 Rx insulin lispro 100 unit/mL 5 - 10 unit (0.05 - 0.1 mL) subcut 01/28/24 10/23/24 Rx subcutaneous pen (Humalog KwikPen TIDWM #15 mL (U-100) Insulin) montelukast 10 mg tablet 10 mg PO HS #30 tabs 01/28/24 10/23/24 Rx (Singulair) mycophenolate mofetil 500 mg tablet 1,000 mg PO Q12H #10 tabs 01/28/24 10/23/24 Rx tacrolimus 0.5 mg capsule, 0.5 mg PO EVERY OTHER DAY #30 caps 01/28/24 10/23/24 Rx immediate-release (Prograf) gabapentin 300 mg capsule 300 mg PO QID 07/22/24 10/23/24 History (Neurontin) albuterol sulfate 2.5 mg/3 mL 2.5 mg inhalation Q6H PRN 10/23/24 10/23/24 History (0.083 %) solution for nebulization Shortness Of Breath albuterol sulfate 90 mcg/actuation 1 puff inhalation Q4-6H PRN 10/23/24 10/23/24 History aerosol inhaler Shortness Of Breath Or Wheezing atorvastatin 40 mg tablet (Lipitor) 40 mg PO HS 10/23/24 10/23/24 History cholecalciferol (vitamin D3) 25 50 mcg PO DAILY 10/23/24 10/23/24 History mcg (1,000 unit) tablet clofazimine 50 mg capsule 100 mg PO DAILY 10/23/24 10/23/24 History cyanocobalamin (vitamin B-12) 1,000 mcg PO DAILY 10/23/24 10/23/24 History 1,000 mcg tablet empagliflozin 10 mg tablet 10 mg PO DAILY 10/23/24 10/23/24 History (Jardiance) fluticasone fur. 200 mcg-umeclid 1 inh inhalation DAILY 10/23/24 10/23/24 History 62.5 mcg-vilant 25 mcg inhalat.powder (Trelegy Ellipta) guaifenesin 600 mg tablet, 600 mg PO Q12H 10/23/24 10/23/24 History extended release 12 hr (Mucinex) metoprolol succinate 25 mg 12.5 mg PO DAILY 10/23/24 10/23/24 History tablet,extended release 24 hr nicotine 21 mg/24 hr daily 1 patch transdermal DAILY 10/23/24 10/23/24 History transdermal patch omega-3 acid ethyl esters 1 gram 1 cap PO DAILY 10/23/24 10/23/24 History capsule (Lovaza) ondansetron 4 mg disintegrating 4 mg PO Q8H PRN Nausea And Vomiting 10/23/24 10/23/24 History tablet pantoprazole 40 mg tablet,delayed 40 mg PO Q12H 10/23/24 10/23/24 History release voriconazole 200 mg tablet 200 mg PO Q12H 10/23/24 10/23/24 History Allergies Allergy/AdvReac Type Severity Reaction Status Date / Time adhesive tape AdvReac Unknown PAPER Verified 10/23/24 05:58 TAPE,REDNESS AND IRRITATION Vital Signs Vital Signs - 24 hr 10/23/24 00:08 10/23/24 00:39 10/23/24 00:13 Temperature 98.1 F Pulse Rate 68 114 H 120 H Respiratory Rate 18 24 H 26 H Blood Pressure 134/88 Pulse Oximetry 92 95 Oxygen Delivery Nasal Cannula BiPAP Oxygen Flow Rate 2 10/23/24 02:29 10/23/24 02:35 10/23/24 02:05 Temperature Pulse Rate 102 H 103 H 103 H Respiratory Rate 18 19 19 Blood Pressure 138/82 Pulse Oximetry 99 96 Oxygen Delivery BiPAP Oxygen Flow Rate Exam Narrative: Weight 57 kg BMI 17.5 Const: Other: Chronically ill-appearing, thin body habitus, no acute distress, appears much older than stated age HENMT: Other: Mucous membranes are moist, edentulous in upper and lower jaw, head is normocephalic atraumatic Eyes: Other: Positive conjunctival pallor, no scleral icterus Neck: Other: No JVD, no thyromegaly, supple Resp: Other: Decreased breath sounds bilateral posterior lung leger, faint expiratory wheezing anterior leger Cardio: Other: Mildly tachycardic, regular rhythm, 2+ bilateral radial pedal pulses, no murmur GI: Other: Soft, nontender, nondistended, positive bowel sounds Back/Spine/Pelvis: Other: Normal alignment, no crepitus Skin: Other: Generalized pallor, non jaundice Neuro: Other: Alert oriented x4, speech is clear, no facial asymmetry, moves all extremities equally, no localizing neurologic deficits noted during the course of conversation Extrem: Other: No cyanosis, no edema, staining to the fingernails that her overgrown on both hands Psych: Other: Appropriate mood and affect, pleasant and cooperative, fair judgment and insight H&P: Results Labs Labs: Laboratory Tests 10/23/24 00:51 10/23/24 00:51 10/23/24 10/23/24 10/23/24 00:28 00:51 03:27 WBC 11.7 H RBC 3.40 L Hgb 11.9 L D Hct 36.3 L MCV 106.8 H MCH 35.0 H MCHC 32.8 RDW 13.6 Plt Count 415 H MPV 10.4 Immature Gran % (Auto) 0.4 Neut % (Auto) 58.8 Lymph % (Auto) 30.4 [place] % (Auto) 6.8 Eos % (Auto) 2.8 Baso % (Auto) 0.8 Lymph # (Auto) 3.55 H [place] # (Auto) 0.8 H Eos # (Auto) 0.3 Baso # (Auto) 0.1 Abs Immat Gran (auto) 0.05 H Absolute Neuts (auto) 6.9 H Absolute Nucleated RBC 0.000 Nucleated RBC % 0.0 Puncture Site Right brachial ABG pH 7.372 ABG pCO2 51.5 H ABG pO2 87.4 ABG PO2/FiO2 Ratio 2.50 ABG HCO3 29.2 H ABG O2 Saturation 96.3 ABG O2 Content 16.0 ABG Base Excess 3.1 A-a Gradient 102.3 Oxyhemoglobin 96.1 Total Hemoglobin 11.8 L O2 Delivery Device Non-invasive vent O2 Liters/Min Not Reportable Vent Rate 16 FiO2 35 Expiratory Pressure 5 Inspiratory Pressure 10 Sodium 138 Potassium 4.2 Chloride 102 Carbon Dioxide 33 H Anion Gap 3 L BUN 16 D Creatinine 0.70 Estim Creat Clear Calc 68 Estimated GFR > 60 Glucose 189 H Calcium 9.4 Total Bilirubin 0.5 AST 48 ALT 26 Alkaline Phosphatase 182 H Troponin I < 0.012 NT-Pro-B Natriuret Pep 769 H Total Protein 8.0 Albumin 4.0 Influenza A (RT-PCR) Negative Influenza B (RT-PCR) Negative RSV (RT-PCR) Negative SARS-CoV-2 RNA (RT-PCR) Negative Chest x-ray personally reviewed and interpreted radiologic interpretation pending. Demonstrated chronic right upper lobe infiltrate similar to prior imaging from July 2024. CT of the chest with contrast on my review demonstrated right upper lobe infiltrate similar to prior imaging at which time that imaging was worse than the imaging from December 2023. There is also few scattered opacities in the left lower lobe. 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 Likely due to COPD exacerbation. Cannot completely exclude underlying pneumonia. CT of the chest with contrast has been ordered and is pending. Patient was mildly tachycardic and is a acute on chronic hypoxia but patient is compliant with his Eliquis so pulmonary embolism is less likely. Patient's oxygen requirement has decreased after steroids and nebulizers. Will wean to home oxygen level and monitor. Will place patient on empiric antibiotic therapy with Rocephin and azithromycin until further imaging has returned. Patient does have some mild leukocytosis which could be acute or chronic. However given the patient's immunocompromised state I would prefer to cover for possible bacterial source. Will continue home anti rejection medications and antivirals as well as antifungals per patient's home baseline. Patient was requiring BiPAP in the ER but appears quite comfortable now on room air. Will continue nasal cannula oxygen with BiPAP as needed. The patient has type 2 diabetes with mild hyperglycemia. He reports that he takes 5 units of Lantus at home nightly and sliding scale insulin. Will continue patient's home Lantus and will place patient on low-dose sliding scale insulin with Accu-Cheks a.c. HS and continue home Jardiance. Will place patient on a consistent carbohydrate diet. Patient's blood pressure is stable. Will continue home id separate to a and anti-platelet medications with his history of coronary disease. He is not having any chest pain or acute cardiac symptoms. Will monitor on telemetry Patient has been admitted as observation status. Quality VTE Prophylaxis VTE prophylaxis: pharmacologic ordered (Continue home Xarelto.) Hospitalist MIPS Advance Care Plan I have confirmed that the patient's Advanced Care Plan is present, code status is documented, or surrogate decision maker is listed in patient medical record.: Yes Medication Reconciliation I have utilized all available resources to obtain, update and review the patients current medications (includes all prescriptions, OTC, herbals, cannabis, and nutritional supplements).: Yes
--- NOTE | 2024-10-23 04:44 | PC.NURSE ---
Report received from Radha CONNELL.
[2024-10-23] MEDS: IPRATROPIUM 0.5 MG/ALBUTEROL SULFATE 2.5 MG AMPUL.NEB 3 ML INHALATION ×3 (06:48→21:05)
[2024-10-23 08:06] LABS: Glucose Point of Care 283 mg/dl (65-105)
[2024-10-23] MEDS: mycophenolate mofetiL 250 MG CAPSULE 1000 MG PO ×2 (09:11→21:14)
[2024-10-23] MEDS: VORICONAZOLE 200 MG TABLET PO ×2 (09:12→21:11)
[2024-10-23] MEDS: TACROLIMUS 0.5 MG CAPSULE PO (09:12)
[2024-10-23] MEDS: PANTOPRAZOLE 40 MG TABLET PO ×2 (09:16→21:12)
[2024-10-23] MEDS: GABAPENTIN 300 MG CAPSULE PO ×4 (09:16→21:12)
[2024-10-23] MEDS: EMPAGLIFLOZIN 10 MG TABLET PO (09:16)
[2024-10-23] MEDS: guaiFENesin 12 HR 600 MG TABCR PO ×2 (09:16→21:12)
[2024-10-23] MEDS: METOPROLOL SUCCINATE EXT REL 12.5 MG TABCR PO (09:16)
[2024-10-23] MEDS: CHOLECALCIFEROL 1,000 UNITS TABLET 2000 UNITS PO (09:16)
[2024-10-23] MEDS: CYANOCOBALAMIN 1,000 MCG TABLET 1000 MCG PO (09:16)
[2024-10-23] MEDS: CLOPIDOGREL BISULFATE 75 MG TABLET PO (09:16)
[2024-10-23] MEDS: NICOTINE (*PBKC) 21 MG PATCH 1 PATCH TRANSDERM (09:17)
[2024-10-23] MEDS: OMEGA 3 POLYUNSAT FATTY ACIDS 1 GM CAP PO (09:17)
[2024-10-23] MEDS: ACYCLOVIR 400 MG TABLET PO ×3 (09:17→16:11)
[2024-10-23 10:07] LABS: Hematocrit 30.9 % (42.0-52.0); Mean Corpuscular HGB Conc 32.4 g/dl (32-36); Mean Corpuscular Hemoglobin 34.2 pg (26-34); Mean Corpuscular Volume 105.8 fl (80-100); Mean Platelet Volume 9.8 fl (7.4-10.4); Platelet Count Result 370 k/mm3 (150-375); Red Blood Count 2.92 M/mm3 (4.6-6.20); Red Cell Distribution Width 13.5 % (11.5-14.5); White Blood Count 4.4 K/mm3 (4.5-10.0)
[2024-10-23 10:34] LABS: Alanine Aminotransferase 32 U/L (6-50); Albumin Level 3.7 g/dL (3.5-5.1); Alkaline Phosphatase 133 U/L (38-126); Anion Gap 11 mmol/L (4-12); Aspartate Amino Transferase 45 U/L (17-59); Bilirubin,Total 0.4 mg/dL (0.2-1.3); Blood Urea Nitrogen 16 mg/dL (9-20); Calcium 9.1 mg/dL (8.4-10.2); Carbon Dioxide 23 mmol/L (22-30); Chloride 102 mmol/L (98-107); Estimated CRCL calculation 93 ml/min; Estimated Glomerular Filt Rate > 60; Glucose 403 mg/dL (65-110); Potassium 4.5 mmol/L (3.4-5.0); Sodium 136 mmol/L (137-145)
[2024-10-23] MEDS: INSULIN ASPART (*BKC) 100 UNITS/ML SUB-Q ×2 (11:41→16:11)
[2024-10-23 11:49] LABS: Glucose Point of Care 321 mg/dl (65-105)
--- NOTE | 2024-10-23 15:21 | PM.EVENT ---
Event Note Event Note Event Note: Patient seen and assessed by previous provider same day. Follow-up assessment patient in no acute distress weaned back to home oxygen of 2L NC with a oxygen saturation of 100. Patient denied any further CP, SOB, dizziness, N/V, fever, Chills, or palpitations. Patient did report he has been having difficulty swallowing food and having to vomit it back up because it feels like its getting stuck. Patient stated he had a EGD he thinks years ago. Will have GI evaluate can likely have scope outpatient if respiratory status stable tomorrow. Will continue with current treatment can down grade to med/tele.
[2024-10-23 16:04] LABS: Glucose Point of Care 212 mg/dl (65-105)
[2024-10-23] MEDS: RIVAROXABAN 20 MG TABLET PO (16:11)
--- NOTE | 2024-10-23 16:15 | P.CONGI_ITS ---
Assessment and Plan Assessment and plan (1) Dysphagia: Code(s): R13.10 - Dysphagia, unspecified Status: Acute Assessment and Plan: we can do egd Saturday if he stays in hospital to assess if ring, esophagitis, etc he is having difficulty with solids (2) Acute on chronic respiratory failure with hypoxia and hypercapnia: Code(s): J96.21 - Acute and chronic respiratory failure with hypoxia; J96.22 - Acute and chronic respiratory failure with hypercapnia Status: Acute Assessment and Plan: better with medical management (3) Acute exacerbation of chronic obstructive airways disease: Code(s): J44.1 - Chronic obstructive pulmonary disease with (acute) exacerbation Status: Acute (4) Type 2 diabetes mellitus with hyperglycemia, with long-term current use of insulin: Code(s): E11.65 - Type 2 diabetes mellitus with hyperglycemia; Z79.4 - care home (current) use of insulin Status: Acute (5) Immunocompromised patient: Code(s): D84.9 - Immunodeficiency, unspecified Status: Acute (6) Chronic anticoagulation: Code(s): Z79.01 - 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 He was diagnosed with copd exacerbation and he is slowly feeling better after treatment by primary team. Also he says that at least for last year notes that food sometimes will get stuck in chest and have to drink water in order to go down, recently even having more problem and few occassions had to bring up food. He thinks that had EGD in the past but unsure about result. Review of Systems Constitutional: Constitutional: Denies headache(s) Eyes: Eyes: Denies blurry vision ENT: Reports Normal hearing present, Denies headache(s) and Denies neck pain Cardiovascular: Cardiovascular: Reports dyspnea Respiratory: Respiratory: Reports cough and Reports dyspnea Gastrointestinal: Comments: dysphagia Genitourinary: Genitourinary: Denies dysuria Musculoskeletal: Musculoskeletal: Denies neck pain Integumentary/Breasts: Skin/Breast: Denies dry skin Neurologic: Reports Normal hearing present, Denies headache(s) and Denies weakness Psychiatric: Psychiatric: Denies behavioral changes [facility] Past Medical History Medical History Acute myeloid leukemia (~2008) Status post bone marrow transplant with resultant chronic deonl-cxzkqp-eplu disease. Anxiety CAD (coronary artery disease) Chronic anticoagulation Chronic obstructive pulmonary disease Chronic respiratory failure with hypoxia On 5 liters nasal cannula at nighttime. Deep venous thrombosis Depression Eczema Emphysema/COPD Hyperglycemia Hyperlipidemia Immunocompromised patient Patient on anti rejection medications. 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 Peripheral neuropathy Peyronie's disease Peyronie's disease Positive nasal culture for methicillin resistant Staphylococcus aureus Pulmonary emboli Sciatica ST elevation (STEMI) myocardial infarction (12/30/22) Surgical History Surgical History History of heart artery stent 12/30/2022 100% occlusion mid RCA with drug-eluting stent, left coronary system with brgl-tw-wyklyojy disease History of orthopedic surgery Left tibia liz placement History of stem cell transplant Status post cataract extraction of both eyes with insertion of intraocular lens Family History Family History Mother Acute myocardial infarction, Onset Age: 42 Father COPD (chronic obstructive pulmonary disease) Diabetes mellitus Alcohol abuse Social History Social History Social History: Surrogate medical decision maker: Lissy Kaiser, friend/roommate. Code status: Full code. Years smoked: 44 Smoking status: Current some day smoker Tobacco type: cigarettes Smoking end date: 08/07/22 Additional smoking assessment comments: on nicotine patches, states he is currently on patches Alcohol intake: never Substance use: never Substance use type: does not use Do You Feel Safe in your Home?: Yes Lack of Transportation: No Lack of Food: Never True Current Housing: I Have Housing Concerned About Future Housing: No Difficulty Paying Gas/Electric Bills: YES Difficulty Paying for Meds: No Currently Unemployed: No Education: High School Diploma/GED Difficulty w/ Childcare or Family Care: No Living arrangements: with friend(s) Additional living arrangements comments: He lives with his roommate in [place]. Occupation/Education: unemployed Spiritual care concerns: No Agree to blood products: Yes Meds Home Medications and Allergies Home Medications Medication Instructions Recorded Confirmed Type rivaroxaban 20 mg tablet (Xarelto) 20 mg PO QAM 02/06/23 10/23/24 History Oxygen 4 l Not Applicable 01/28/24 History acyclovir 400 mg tablet 400 mg PO TID #90 tabs 01/28/24 10/23/24 Rx clopidogrel 75 mg tablet 75 mg PO DAILY #90 tabs 01/28/24 10/23/24 Rx insulin lispro 100 unit/mL 5 - 10 unit (0.05 - 0.1 mL) subcut 01/28/24 10/23/24 Rx subcutaneous pen (Humalog KwikPen TIDWM #15 mL (U-100) Insulin) montelukast 10 mg tablet 10 mg PO HS #30 tabs 01/28/24 10/23/24 Rx (Singulair) mycophenolate mofetil 500 mg tablet 1,000 mg PO Q12H #10 tabs 01/28/24 10/23/24 Rx tacrolimus 0.5 mg capsule, 0.5 mg PO EVERY OTHER DAY #30 caps 01/28/24 10/23/24 Rx immediate-release (Prograf) gabapentin 300 mg capsule 300 mg PO QID 07/22/24 10/23/24 History (Neurontin) albuterol sulfate 2.5 mg/3 mL 2.5 mg inhalation Q6H PRN 10/23/24 10/23/24 History (0.083 %) solution for nebulization Shortness Of Breath albuterol sulfate 90 mcg/actuation 1 puff inhalation Q4-6H PRN 10/23/24 10/23/24 History aerosol inhaler Shortness Of Breath Or Wheezing atorvastatin 40 mg tablet (Lipitor) 40 mg PO HS 10/23/24 10/23/24 History cholecalciferol (vitamin D3) 25 50 mcg PO DAILY 10/23/24 10/23/24 History mcg (1,000 unit) tablet clofazimine 50 mg capsule 100 mg PO DAILY 10/23/24 10/23/24 History cyanocobalamin (vitamin B-12) 1,000 mcg PO DAILY 10/23/24 10/23/24 History 1,000 mcg tablet empagliflozin 10 mg tablet 10 mg PO DAILY 10/23/24 10/23/24 History (Jardiance) fluticasone fur. 200 mcg-umeclid 1 inh inhalation DAILY 10/23/24 10/23/24 History 62.5 mcg-vilant 25 mcg inhalat.powder (Trelegy Ellipta) guaifenesin 600 mg tablet, 600 mg PO Q12H 10/23/24 10/23/24 History extended release 12 hr (Mucinex) metoprolol succinate 25 mg 12.5 mg PO DAILY 10/23/24 10/23/24 History tablet,extended release 24 hr nicotine 21 mg/24 hr daily 1 patch transdermal DAILY 10/23/24 10/23/24 History transdermal patch omega-3 acid ethyl esters 1 gram 1 cap PO DAILY 10/23/24 10/23/24 History capsule (Lovaza) ondansetron 4 mg disintegrating 4 mg PO Q8H PRN Nausea And Vomiting 10/23/24 10/23/24 History tablet pantoprazole 40 mg tablet,delayed 40 mg PO Q12H 10/23/24 10/23/24 History release voriconazole 200 mg tablet 200 mg PO Q12H 10/23/24 10/23/24 History Allergies Allergy/AdvReac Type Severity Reaction Status Date / Time adhesive tape AdvReac Unknown PAPER Verified 10/23/24 05:58 TAPE,REDNESS AND IRRITATION Vital Signs Vital Signs - 24 hr 10/23/24 00:08 10/23/24 00:39 10/23/24 00:13 Temperature 98.1 F Pulse Rate 68 114 H 120 H Respiratory Rate 18 24 H 26 H Blood Pressure 134/88 Pulse Oximetry 92 95 Oxygen Delivery Nasal Cannula BiPAP Oxygen Flow Rate 2 10/23/24 02:29 10/23/24 02:35 10/23/24 02:05 Temperature Pulse Rate 102 H 103 H 103 H Respiratory Rate 18 19 19 Blood Pressure 138/82 Pulse Oximetry 99 96 Oxygen Delivery BiPAP Oxygen Flow Rate 10/23/24 04:43 10/23/24 05:00 10/23/24 06:00 Temperature 98.3 F Pulse Rate 100 100 100 Respiratory Rate 16 16 Blood Pressure 120/74 121/72 Pulse Oximetry 99 100 Oxygen Delivery Oxygen Flow Rate 10/23/24 05:00 10/23/24 07:14 10/23/24 06:45 Temperature 98.0 F Pulse Rate 108 H 72 Respiratory Rate 20 18 Blood Pressure 119/60 Pulse Oximetry 100 99 100 Oxygen Delivery Nasal Cannula Nasal Cannula Oxygen Flow Rate 2 2 10/23/24 06:45 10/23/24 06:55 10/23/24 09:16 Temperature Pulse Rate 72 75 104 H Respiratory Rate 18 18 Blood Pressure Pulse Oximetry Oxygen Delivery Oxygen Flow Rate 10/23/24 11:24 10/23/24 08:00 10/23/24 10:00 Temperature 98.3 F Pulse Rate 101 H 100 98 Respiratory Rate 20 Blood Pressure 111/61 Pulse Oximetry 99 Oxygen Delivery Oxygen Flow Rate 10/23/24 12:00 10/23/24 13:00 10/23/24 13:10 Temperature Pulse Rate 104 H 80 79 Respiratory Rate 20 18 Blood Pressure Pulse Oximetry Oxygen Delivery Oxygen Flow Rate 10/23/24 14:00 10/23/24 15:47 Temperature 98.0 F Pulse Rate 99 86 Respiratory Rate 20 Blood Pressure 122/69 Pulse Oximetry 100 Oxygen Delivery Oxygen Flow Rate Exam Const: Other: Chronically ill-appearing, thin body habitus, no acute distress HENMT: Face/Nose/Sinus: Normal nares present Eyes: Other: Positive conjunctival pallor, no scleral icterus Neck: Neck: no JVD Resp: Other: Decreased breath sounds bilateral posterior lung leger, faint expiratory wheezing anterior leger Cardio: Rhythm: regular rhythm GI: Other: Soft, nontender, nondistended, positive bowel sounds Back/Spine/Pelvis: Other: Normal alignment, no crepitus Skin: Other: Generalized pallor, non jaundice Neuro: Other: Alert oriented x4, speech is clear, no facial asymmetry, moves all extremities equally, no localizing neurologic deficits noted during the course of conversation Extrem: Other: No cyanosis, no edema Psych: Other: Appropriate mood and affect, pleasant and cooperative, fair judgment and insight Results Labs 10/23/24 10:01 10/23/24 10:01 Labs: Short CBC 10/23/24 10/23/24 Range/Units 00:51 10:01 WBC 11.7 H 4.4 L (4.5-10.0) K/mm3 Hgb 11.9 L D 10.0 L (14.0-18.0) g/dL Hct 36.3 L 30.9 L (42.0-52.0) % Plt Count 415 H 370 (150-375) k/mm3 BMP 10/23/24 10/23/24 00:51 10:01 Sodium 138 136 L Potassium 4.2 4.5 Chloride 102 102 Carbon Dioxide 33 H 23 BUN 16 D 16 Creatinine 0.70 0.60 L Glucose 189 H 403 H Calcium 9.4 9.1 Cardiac Enzymes 10/23/24 Range/Units 00:51 Troponin I < 0.012 (0.000-0.034) ng/mL Liver Function 10/23/24 10/23/24 Range/Units 00:51 10:01 Total Bilirubin 0.5 0.4 (0.2-1.3) mg/dL AST 48 45 (17-59) U/L ALT 26 32 (6-50) U/L Alkaline Phosphatase 182 H 133 H (38-126) U/L Albumin 4.0 3.7 (3.5-5.1) g/dL
[2024-10-23 17:19] LABS: Glucose Point of Care 193 mg/dl (65-105)
[2024-10-23 20:43] LABS: Glucose Point of Care 297 mg/dl (65-105)
[2024-10-23] MEDS: MONTELUKAST SODIUM 10 MG TABLET PO (21:13)
[2024-10-23] MEDS: ATORVASTATIN 40 MG TABLET PO (21:14)
[2024-10-23] MEDS: INSULIN GLARGINE (*BKC) 100 UNITS/ML SUB-Q (21:14)
--- NOTE | 2024-10-23 22:04 | PC.NURSE ---
Spoke with Juvenal Saucedo, regarding about location of patient's home medications. She states she will send up via tube system.
[2024-10-23] MEDS: MELATONIN 5 MG TABLET 10 MG PO (23:33)
[2024-10-24] VITALS (16 sets, daily range): BP systolic 101–132; BP diastolic 61–75; PULSE 60–110; RESP 12–20; TEMP 36.2–36.6; O2SAT 91–100
[2024-10-24] MEDS: INSULIN ASPART (*BKC) 100 UNITS/ML SUB-Q ×4 (00:11→20:59)
[2024-10-24] MEDS: IPRATROPIUM 0.5 MG/ALBUTEROL SULFATE 2.5 MG AMPUL.NEB 3 ML INHALATION ×4 (02:31→20:42)
[2024-10-24] MEDS: methylPREDNISolone SOD SUCC 125 MG VIAL 80 MG IV PUSH (04:11)
[2024-10-24 05:32] LABS: Glucose Point of Care 360 mg/dl (65-105)
[2024-10-24 06:12] LABS: Hematocrit 32.7 % (42.0-52.0); Hemoglobin 10.9 g/dL (14.0-18.0); Mean Corpuscular HGB Conc 33.3 g/dl (32-36); Mean Corpuscular Hemoglobin 35.6 pg (26-34); Mean Corpuscular Volume 106.9 fl (80-100); Mean Platelet Volume 10.2 fl (7.4-10.4); Platelet Count Result 399 k/mm3 (150-375); Red Blood Count 3.06 M/mm3 (4.6-6.20); Red Cell Distribution Width 14.2 % (11.5-14.5); White Blood Count 27.1 K/mm3 (4.5-10.0)
[2024-10-24 06:23] LABS: Alanine Aminotransferase 24 U/L (6-50); Alkaline Phosphatase 154 U/L (38-126); Anion Gap 6 mmol/L (4-12); Aspartate Amino Transferase 32 U/L (17-59); Bilirubin,Total 0.4 mg/dL (0.2-1.3); Blood Urea Nitrogen 24 mg/dL (9-20); Calcium 9.4 mg/dL (8.4-10.2); Carbon Dioxide 30 mmol/L (22-30); Chloride 102 mmol/L (98-107); Estimated CRCL calculation 83 ml/min; Estimated Glomerular Filt Rate > 60; Glucose 270 mg/dL (65-110); Potassium 3.6 mmol/L (3.4-5.0); Sodium 138 mmol/L (137-145)
[2024-10-24] MEDS: FLUTICASONE/UMECLIDIN/VILANTER 200-62.5-25 MCG ELLIPTA 1 PUFF INHALATION (07:28)
[2024-10-24 08:26] LABS: Glucose Point of Care 286 mg/dl (65-105)
[2024-10-24] MEDS: NICOTINE (*PBKC) 21 MG PATCH 1 PATCH TRANSDERM (08:58)
[2024-10-24] MEDS: EMPAGLIFLOZIN 10 MG TABLET PO (08:59)
[2024-10-24] MEDS: predniSONE 20 MG TABLET 40 MG PO (08:59)
[2024-10-24] MEDS: CHOLECALCIFEROL 1,000 UNITS TABLET 2000 UNITS PO (08:59)
[2024-10-24] MEDS: VORICONAZOLE 200 MG TABLET PO ×2 (08:59→20:58)
[2024-10-24] MEDS: CLOPIDOGREL BISULFATE 75 MG TABLET PO (08:59)
[2024-10-24] MEDS: OMEGA 3 POLYUNSAT FATTY ACIDS 1 GM CAP PO (08:59)
[2024-10-24] MEDS: mycophenolate mofetiL 250 MG CAPSULE 1000 MG PO ×2 (08:59→20:58)
[2024-10-24] MEDS: AZITHROMYCIN 250 MG TABLET PO (08:59)
[2024-10-24] MEDS: CYANOCOBALAMIN 1,000 MCG TABLET 1000 MCG PO (09:00)
[2024-10-24] MEDS: guaiFENesin 12 HR 600 MG TABCR PO ×2 (09:00→20:58)
[2024-10-24] MEDS: GABAPENTIN 300 MG CAPSULE PO ×4 (09:00→20:57)
[2024-10-24] MEDS: PANTOPRAZOLE 40 MG TABLET PO ×2 (09:00→20:57)
[2024-10-24] MEDS: METOPROLOL SUCCINATE EXT REL 12.5 MG TABCR PO (09:03)
[2024-10-24] MEDS: ACYCLOVIR 400 MG TABLET PO ×3 (09:08→17:04)
[2024-10-24 12:30] LABS: Glucose Point of Care 234 mg/dl (65-105)
--- NOTE | 2024-10-24 12:57 | P.PNGI_ITS ---
Progress Note: A&P Assessment and Plan (1) Dysphagia: Code(s): R13.10 - Dysphagia, unspecified Status: Acute Assessment and Plan: plan for egd saturday to assess esophagus given dysphagia to solids, ? 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 Status: Acute (5) Immunocompromised patient: Code(s): D84.9 - Immunodeficiency, unspecified Status: Acute Subjective Date/time seen: 10/24/24 12:57 Interval history: still hard to swallow solids meals, no major changes otherwise Review of Systems Review of Systems: All systems reviewed & are unremarkable except as noted in HPI and below Exam Const: Other: Chronically ill-appearing, thin body habitus, no acute distress HENMT: Face/Nose/Sinus: Normal nares present Eyes: Other: Positive conjunctival pallor, no scleral icterus Neck: Neck: no JVD Resp: Auscultation: no wheezes Cardio: Rhythm: regular rhythm GI: GI Palp: Yes Soft to palpation and No Tenderness to palpation present (GI) Auscultation: normal bowel sounds Back/Spine/Pelvis: Other: Normal alignment, no crepitus Skin: Other: Generalized pallor, non jaundice Neuro: Speech: normal speech Motor exam (neuro): 5/5 motor strength present throughout Extrem: Other: No cyanosis, no edema Psych: Other: Appropriate mood and affect, pleasant and cooperative, fair judgment and insight Objective Data Vital Signs Vital Signs: Vital Signs - 24 hr 10/23/24 13:00 10/23/24 13:10 10/23/24 14:00 Temperature Pulse Rate 80 79 99 Respiratory Rate 20 18 Blood Pressure Pulse Oximetry Oxygen Delivery Oxygen Flow Rate Fraction of Inspired Oxygen 10/23/24 15:47 10/23/24 16:00 10/23/24 20:00 Temperature 98.0 F 97.9 F Pulse Rate 86 87 96 Respiratory Rate 20 12 Blood Pressure 122/69 156/78 H Pulse Oximetry 100 100 Oxygen Delivery Oxygen Flow Rate Fraction of Inspired Oxygen 10/23/24 21:05 10/23/24 21:13 10/24/24 00:00 Temperature 97.9 F Pulse Rate 82 89 Respiratory Rate 20 12 Blood Pressure 108/63 Pulse Oximetry 98 96 Oxygen Delivery Nasal Cannula Oxygen Flow Rate 2 Fraction of Inspired Oxygen 10/23/24 20:00 10/24/24 02:31 10/23/24 21:15 Temperature Pulse Rate 91 83 Respiratory Rate 18 20 Blood Pressure Pulse Oximetry 96 Oxygen Delivery Nasal Cannula Oxygen Flow Rate 1 Fraction of Inspired Oxygen 10/24/24 02:38 10/24/24 04:00 10/24/24 07:24 Temperature 97.1 F L Pulse Rate 87 93 Respiratory Rate 20 12 Blood Pressure 112/61 Pulse Oximetry 99 96 Oxygen Delivery Nasal Cannula Oxygen Flow Rate 2 Fraction of Inspired Oxygen 28 10/24/24 07:24 10/24/24 07:38 10/24/24 09:03 Temperature Pulse Rate 91 93 105 H Respiratory Rate 20 20 Blood Pressure Pulse Oximetry Oxygen Delivery Oxygen Flow Rate Fraction of Inspired Oxygen 10/24/24 09:23 Temperature 97.3 F L Pulse Rate 100 Respiratory Rate 18 Blood Pressure 101/67 Pulse Oximetry 95 Oxygen Delivery Oxygen Flow Rate Fraction of Inspired Oxygen Intake/Output Intake/Output: Intake & Output 10/21/24 10/22/24 10/23/24 10/24/24 23:59 23:59 23:59 23:59 Intake Total 1380 830 Output Total 550 1900 Balance 830 -1070 Meds/Results Medications: Active Medications Generic Name Dose Route Start Last Admin Trade Name Freq PRN Reason Stop Dose Admin Acyclovir 400 mg 10/23/24 09:00 10/24/24 09:08 Acyclovir 400 Mg Tablet PO 400 mg TID ROSA MARIA Administration Albuterol/Ipratropium 3 ml 10/23/24 08:00 10/24/24 07:24 Ipratropium 0.5 Mg/Albuterol Sulfate 2.5 Mg Ampul.Neb 3 Ml INHALATION 3 ml Q6HRT ROSA MARIA Administration Atorvastatin Calcium 40 mg 10/23/24 21:00 10/23/24 21:14 Atorvastatin 40 Mg Tablet PO 40 mg HS ROSA MARIA Administration Azithromycin 250 mg 10/24/24 09:00 10/24/24 08:59 Azithromycin 250 Mg Tablet PO 10/27/24 09:01 250 mg DAILY ROSA MARIA Administration Clopidogrel Bisulfate 75 mg 10/23/24 09:00 10/24/24 08:59 Clopidogrel Bisulfate 75 Mg Tablet PO 75 mg DAILY ROSA MARIA Administration Cyanocobalamin 1,000 mcg 10/23/24 09:00 10/24/24 09:00 Cyanocobalamin 1,000 Mcg Tablet PO 1,000 mcg DAILY ROSA MARIA Administration Dextrose 12.5 gm 10/23/24 08:01 Dextrose 50% 25 Gm/50 Ml Syringe IV PUSH PRN PRN Hypoglycemia Protocol Empagliflozin 10 mg 10/23/24 09:00 10/24/24 08:59 Empagliflozin 10 Mg Tablet PO 10 mg DAILY ROSA MARIA Administration Fish Oil 1 gm 10/23/24 09:00 10/24/24 08:59 Coy 3 Polyunsat Fatty Acids 1 Gm Cap PO 1 gm DAILY ROSA MARIA Administration Fluticasone/Umeclidinium/Vilanterol 1 puff 10/23/24 08:00 10/24/24 07:28 Fluticasone/Umeclidin/Vilanter 200-62.5-25 Mcg Ellipta INHALATION 1 puff DAILYRT ROSA MARIA Administration Gabapentin 300 mg 10/23/24 09:00 10/24/24 09:00 Gabapentin 300 Mg Capsule PO 300 mg QID ROSA MARIA Administration Glucagon 1 mg 10/23/24 08:01 Glucagon For Inj 1 Mg Vial IM PRN PRN Hypoglycemia Protocol Glucose 15 gm 10/23/24 08:01 Glucose Oral Gel 15 Gm Of Glucse In 37.5 Gm Tube PO PRN PRN Hypoglycemia Protocol Guaifenesin 600 mg 10/23/24 09:00 10/24/24 09:00 Guaifenesin 12 Hr 600 Mg Tabcr PO 600 mg Q12HR ROSA MARIA Administration Dextrose 1,000 mls @ 100 mls/hr 10/23/24 08:01 Dextrose 5% 1,000 Ml IVPB PRN PRN Hypoglycemia Protocol Insulin Aspart 4 - 8 units 10/24/24 08:00 10/24/24 09:01 Insulin Aspart (*Bkc) 100 Units/Ml SUB-Q 5 units TIDWM ROSA MARIA Administration Protocol Insulin Aspart 2 - 4 units 10/24/24 21:00 Insulin Aspart (*Bkc) 100 Units/Ml SUB-Q HS ROSA MARIA Protocol Insulin Glargine 5 units 10/23/24 21:00 10/23/24 21:14 Insulin Glargine (*Bkc) 100 Units/Ml SUB-Q 5 units HS ROSA MARIA Administration Melatonin 10 mg 10/23/24 22:55 10/23/24 23:33 Melatonin 5 Mg Tablet PO 10 mg HS PRN Administration Insomnia Metoprolol Succinate 12.5 mg 10/23/24 09:00 10/24/24 09:03 Metoprolol Succinate Ext Rel 12.5 Mg Tabcr PO 12.5 mg DAILY ROSA MARIA Administration Montelukast Sodium 10 mg 10/23/24 21:00 10/23/24 21:13 Montelukast Sodium 10 Mg Tablet PO 10 mg HS ROSA MARIA Administration Mycophenolate Mofetil 1,000 mg 10/23/24 09:00 10/24/24 08:59 Mycophenolate Mofetil 250 Mg Capsule PO 1,000 mg Q12HR ROSA MARIA Administration Nicotine 1 patch 10/23/24 09:00 10/24/24 08:58 Nicotine (*Pbkc) 21 Mg Patch TRANSDERM 1 patch DAILY ROSA MARIA Administration Ondansetron HCl 4 mg 10/23/24 03:12 Ondansetron Inj 4 Mg/2 Ml Vial IV PUSH Q4H PRN Nausea Pantoprazole Sodium 40 mg 10/23/24 09:00 10/24/24 09:00 Pantoprazole 40 Mg Tablet PO 40 mg Q12HR ROSA MARIA Administration Prednisone 40 mg 10/24/24 08:00 10/24/24 08:59 Prednisone 20 Mg Tablet PO 40 mg DAILY@0800 ROSA MARIA Administration Rivaroxaban 20 mg 10/23/24 17:00 10/23/24 16:11 Rivaroxaban 20 Mg Tablet PO 20 mg DAILY@1700 ROSA MARIA Administration Tacrolimus 0.5 mg 10/23/24 09:00 10/23/24 09:12 Tacrolimus 0.5 Mg Capsule PO 0.5 mg Q48HR ROSA MARIA Administration Vitamin D 2,000 units 10/23/24 09:00 10/24/24 08:59 Cholecalciferol 1,000 Units Tablet PO 2,000 units DAILY ROSA MARIA Administration Voriconazole 200 mg 10/23/24 09:00 10/24/24 08:59 Voriconazole 200 Mg Tablet PO 200 mg Q12HR ROSA MARIA Administration Radiology Results: ITS Impressions Chest CT 10/23/24 06:04 Impression: Extensive irregular right apical consolidation with areas of cavitation versus bronchiectasis or possibly necrotic change are similar to prior exam. Multiple additional areas of irregular consolidation and/or nodularity throughout the lungs, largely stable from prior exam, but with focal worsening at the left lung base. Vascular fact chronic postinflammatory change with additional new infection or atelectasis or scarring at the left lung base. Clinical correlation advised. Underlying advanced emphysema. Chest X-Ray 10/23/24 06:15 Impression: No interval change. COPD with stable extensive right apical consolidation and scarring/pleural thickening. Additional focal airspace opacity peripheral right midlung. Stable mild interstitial prominence left lung base, nonspecific. Labs Labs: Laboratory Results - last 24 hr 10/23/24 10/23/24 10/23/24 15:46 17:08 20:34 WBC RBC Hgb Hct MCV MCH MCHC RDW Plt Count MPV Sodium Potassium Chloride Carbon Dioxide Anion Gap BUN Creatinine Estim Creat Clear Calc Estimated GFR Glucose POC Capillary Glucose 212 H 193 H 297 H Calcium Total Bilirubin AST ALT Alkaline Phosphatase Total Protein Albumin 10/23/24 10/24/24 10/24/24 23:36 05:39 08:21 WBC 27.1 H RBC 3.06 L Hgb 10.9 L Hct 32.7 L MCV 106.9 H MCH 35.6 H MCHC 33.3 RDW 14.2 Plt Count 399 H MPV 10.2 Sodium 138 Potassium 3.6 Chloride 102 Carbon Dioxide 30 Anion Gap 6 BUN 24 H Creatinine 0.70 Estim Creat Clear Calc 83 Estimated GFR > 60 Glucose 270 H POC Capillary Glucose 360 H 286 H Calcium 9.4 Total Bilirubin 0.4 AST 32 ALT 24 Alkaline Phosphatase 154 H Total Protein 8.0 Albumin 4.0 10/24/24 12:24 WBC RBC Hgb Hct MCV MCH MCHC RDW Plt Count MPV Sodium Potassium Chloride Carbon Dioxide Anion Gap BUN Creatinine Estim Creat Clear Calc Estimated GFR Glucose POC Capillary Glucose 234 H Calcium Total Bilirubin AST ALT Alkaline Phosphatase Total Protein Albumin
--- NOTE | 2024-10-24 13:33 | P.PNIM_ITS ---
Progress Note: A&P Assessment and Plan (1) COPD exacerbation: Code(s): J44.1 - Chronic obstructive pulmonary disease with (acute) exacerbation Status: Acute Assessment and Plan: Patient states he had been out of his inhalers and nebulizers for the last 2 weeks has had increased worsening shortness of breath patient is still currently smoking * Bronchodilators. * Chest x-ray/Chest CT reviewed stable from previous * incentive spirometry while awake. * steroids initiated transitioned to PO * azithromycin 500 x 1 day/250 daily/Rocephin * supplemental oxygen therapy to maintain oxygen 92%/Wears 3L NC at home * Smoking cessation counseling done * Follow-up with laboratory clerk as an outpatient (2) Acute on chronic respiratory failure with hypoxia and hypercapnia: Code(s): J96.21 - Acute and chronic respiratory failure with hypoxia; J96.22 - Acute and chronic respiratory failure with hypercapnia Status: Acute Assessment and Plan: * Likely secondary to COPD exacerbation * weaned 02 to 3L home oxygen * Bipap Prn * Encourage smoking cessation (3) Leukocytosis: Code(s): D72.829 - Elevated white blood cell count, unspecified Status: Acute Assessment and Plan: * WBC bumped from 4.4 to 27.1 overnight * likely reactive to 80mg IV steroids rather than infectious * has been on azithromycin and Rocephin * Trend his steroids to p.o. 40 days * Stat repeat CBC * Follow-up CBC in the a.m. (4) Dysphagia: Code(s): R13.10 - Dysphagia, unspecified Status: Acute Assessment and Plan: * Patient reports food getting stuck and he has to really regurgitate at times * Has weight loss in loss 2 months * Has had previous difficulties states he believes he had an EGD but did not results a few years ago * GI was consulted * Plan for EGD 10/26 evaluate for any esophageal strictures, mass, esophagitis * Soft diet (5) Type 2 diabetes mellitus with hyperglycemia, with long-term current use of insulin: Code(s): E11.65 - Type 2 diabetes mellitus with hyperglycemia; Z79.4 - nursing home (current) use of insulin Status: Acute Assessment and Plan: * Accu-Cheks a.c. 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 He is ambulatory own and plan is return discharge. Time Spent With Patient Time with patient: 15 - 25 minutes Subjective Date/time seen: 10/24/24 13:33 Interval history: Patient is a 58-year-old male who was admitted to IMU initially for acute on chronic respiratory failure with hypoxia who required BiPAP on admission wears chronic supplemental oxygen at home. 10/24/2024: Patient breathing better today has been weaned back to his home oxygen but still has complaints of dyspnea with excretion and difficulty swallowing his food without have to regurgitate it back up. Plan for EGD 10/26/24. Afebrile but WBC jump to 24 from 4.4 stat repeat pending could be reactive to the IV steroids. Review of Systems Review of Systems: 12 systems were reviewed with pertinent positives and negatives per HPI. Except as documented in the HPI, all other systems were reviewed and are negative. All systems reviewed & are unremarkable except as noted in HPI and below Exam Narrative: Weight 57 kg BMI 17.5 Const: Other: Chronically ill-appearing, thin body habitus, no acute distress, appears much older than stated age HENMT: Other: Mucous membranes are moist, edentulous in upper and lower jaw, head is normocephalic atraumatic Eyes: Other: Positive conjunctival pallor, no scleral icterus Neck: Other: No JVD, no thyromegaly, supple Resp: Other: Decreased breath sounds bilateral posterior lung leger, faint expiratory wheezing anterior leger Cardio: Other: Mildly tachycardic, regular rhythm, 2+ bilateral radial pedal pulses, no murmur GI: Other: Soft, nontender, nondistended, positive bowel sounds Back/Spine/Pelvis: Other: Normal alignment, no crepitus Skin: Other: Generalized pallor, non jaundice Neuro: Other: Alert oriented x4, speech is clear, no facial asymmetry, moves all extremities equally, no localizing neurologic deficits noted during the course of conversation Extrem: Other: No cyanosis, no edema, staining to the fingernails that her overgrown on both hands Psych: Other: Appropriate mood and affect, pleasant and cooperative, fair judgment and insight Objective Data Vital Signs Vital Signs: Vital Signs - 24 hr 10/23/24 14:00 10/23/24 15:47 10/23/24 16:00 Temperature 98.0 F Pulse Rate 99 86 87 Respiratory Rate 20 Blood Pressure 122/69 Pulse Oximetry 100 Oxygen Delivery Oxygen Flow Rate Fraction of Inspired Oxygen 10/23/24 20:00 10/23/24 21:05 10/23/24 21:13 Temperature 97.9 F Pulse Rate 96 82 Respiratory Rate 12 20 Blood Pressure 156/78 H Pulse Oximetry 100 98 Oxygen Delivery Nasal Cannula Oxygen Flow Rate 2 Fraction of Inspired Oxygen 10/24/24 00:00 10/23/24 20:00 10/24/24 02:31 Temperature 97.9 F Pulse Rate 89 91 Respiratory Rate 12 18 Blood Pressure 108/63 Pulse Oximetry 96 96 Oxygen Delivery Nasal Cannula Oxygen Flow Rate 1 Fraction of Inspired Oxygen 10/23/24 21:15 10/24/24 02:38 10/24/24 04:00 Temperature 97.1 F L Pulse Rate 83 87 93 Respiratory Rate 20 20 12 Blood Pressure 112/61 Pulse Oximetry 99 Oxygen Delivery Oxygen Flow Rate Fraction of Inspired Oxygen 10/24/24 07:24 10/24/24 07:24 10/24/24 07:38 Temperature Pulse Rate 91 93 Respiratory Rate 20 20 Blood Pressure Pulse Oximetry 96 Oxygen Delivery Nasal Cannula Oxygen Flow Rate 2 Fraction of Inspired Oxygen 28 10/24/24 09:03 10/24/24 09:23 Temperature 97.3 F L Pulse Rate 105 H 100 Respiratory Rate 18 Blood Pressure 101/67 Pulse Oximetry 95 Oxygen Delivery Oxygen Flow Rate Fraction of Inspired Oxygen Intake/Output Intake/Output: Intake & Output 10/21/24 10/22/24 10/23/24 10/24/24 23:59 23:59 23:59 23:59 Intake Total 1380 830 Output Total 550 1900 Balance 830 -1070 Meds/Results Medications: Active Medications Generic Name Dose Route Start Last Admin Trade Name Freq PRN Reason Stop Dose Admin Acyclovir 400 mg 10/23/24 09:00 10/24/24 13:18 Acyclovir 400 Mg Tablet PO 400 mg TID ROSA MARIA Administration Albuterol/Ipratropium 3 ml 10/23/24 08:00 10/24/24 07:24 Ipratropium 0.5 Mg/Albuterol Sulfate 2.5 Mg Ampul.Neb 3 Ml INHALATION 3 ml Q6HRT ROSA MARIA Administration Atorvastatin Calcium 40 mg 10/23/24 21:00 10/23/24 21:14 Atorvastatin 40 Mg Tablet PO 40 mg HS ROSA MARIA Administration Azithromycin 250 mg 10/24/24 09:00 10/24/24 08:59 Azithromycin 250 Mg Tablet PO 10/27/24 09:01 250 mg DAILY ROSA MARIA Administration Clopidogrel Bisulfate 75 mg 10/23/24 09:00 10/24/24 08:59 Clopidogrel Bisulfate 75 Mg Tablet PO 75 mg DAILY ROSA MARIA Administration Cyanocobalamin 1,000 mcg 10/23/24 09:00 10/24/24 09:00 Cyanocobalamin 1,000 Mcg Tablet PO 1,000 mcg DAILY ROSA MARIA Administration Dextrose 12.5 gm 10/23/24 08:01 Dextrose 50% 25 Gm/50 Ml Syringe IV PUSH PRN PRN Hypoglycemia Protocol Empagliflozin 10 mg 10/23/24 09:00 10/24/24 08:59 Empagliflozin 10 Mg Tablet PO 10 mg DAILY ROSA MARIA Administration Fish Oil 1 gm 10/23/24 09:00 10/24/24 08:59 Garrochales 3 Polyunsat Fatty Acids 1 Gm Cap PO 1 gm DAILY ROSA MARIA Administration Fluticasone/Umeclidinium/Vilanterol 1 puff 10/23/24 08:00 10/24/24 07:28 Fluticasone/Umeclidin/Vilanter 200-62.5-25 Mcg Ellipta INHALATION 1 puff DAILYRT ROSA MARIA Administration Gabapentin 300 mg 10/23/24 09:00 10/24/24 13:18 Gabapentin 300 Mg Capsule PO 300 mg QID ROSA MARIA Administration Glucagon 1 mg 10/23/24 08:01 Glucagon For Inj 1 Mg Vial IM PRN PRN Hypoglycemia Protocol Glucose 15 gm 10/23/24 08:01 Glucose Oral Gel 15 Gm Of Glucse In 37.5 Gm Tube PO PRN PRN Hypoglycemia Protocol Guaifenesin 600 mg 10/23/24 09:00 10/24/24 09:00 Guaifenesin 12 Hr 600 Mg Tabcr PO 600 mg Q12HR ROSA MARIA Administration Dextrose 1,000 mls @ 100 mls/hr 10/23/24 08:01 Dextrose 5% 1,000 Ml IVPB PRN PRN Hypoglycemia Protocol Insulin Aspart 4 - 8 units 10/24/24 08:00 10/24/24 13:17 Insulin Aspart (*Bkc) 100 Units/Ml SUB-Q 4 units TIDWM ROSA MARIA Administration Protocol Insulin Aspart 2 - 4 units 10/24/24 21:00 Insulin Aspart (*Bkc) 100 Units/Ml SUB-Q HS ROSA MARIA Protocol Insulin Glargine 5 units 10/23/24 21:00 10/23/24 21:14 Insulin Glargine (*Bkc) 100 Units/Ml SUB-Q 5 units HS ROSA MARIA Administration Melatonin 10 mg 10/23/24 22:55 10/23/24 23:33 Melatonin 5 Mg Tablet PO 10 mg HS PRN Administration Insomnia Metoprolol Succinate 12.5 mg 10/23/24 09:00 10/24/24 09:03 Metoprolol Succinate Ext Rel 12.5 Mg Tabcr PO 12.5 mg DAILY ROSA MARIA Administration Montelukast Sodium 10 mg 10/23/24 21:00 10/23/24 21:13 Montelukast Sodium 10 Mg Tablet PO 10 mg HS ROSA MARIA Administration Mycophenolate Mofetil 1,000 mg 10/23/24 09:00 10/24/24 08:59 Mycophenolate Mofetil 250 Mg Capsule PO 1,000 mg Q12HR ROSA MARIA Administration Nicotine 1 patch 10/23/24 09:00 10/24/24 08:58 Nicotine (*Pbkc) 21 Mg Patch TRANSDERM 1 patch DAILY ROSA MARIA Administration Ondansetron HCl 4 mg 10/23/24 03:12 Ondansetron Inj 4 Mg/2 Ml Vial IV PUSH Q4H PRN Nausea Pantoprazole Sodium 40 mg 10/23/24 09:00 10/24/24 09:00 Pantoprazole 40 Mg Tablet PO 40 mg Q12HR ROSA MARIA Administration Prednisone 40 mg 10/24/24 08:00 10/24/24 08:59 Prednisone 20 Mg Tablet PO 40 mg DAILY@0800 ROSA MARIA Administration Rivaroxaban 20 mg 10/23/24 17:00 10/23/24 16:11 Rivaroxaban 20 Mg Tablet PO 20 mg DAILY@1700 ROSA MARIA Administration Tacrolimus 0.5 mg 10/23/24 09:00 10/23/24 09:12 Tacrolimus 0.5 Mg Capsule PO 0.5 mg Q48HR ROSA MARIA Administration Vitamin D 2,000 units 10/23/24 09:00 10/24/24 08:59 Cholecalciferol 1,000 Units Tablet PO 2,000 units DAILY ROSA MARIA Administration Voriconazole 200 mg 10/23/24 09:00 10/24/24 08:59 Voriconazole 200 Mg Tablet PO 200 mg Q12HR ROSA MARIA Administration Radiology Results: ITS Impressions Chest CT 10/23/24 06:04 Impression: Extensive irregular right apical consolidation with areas of cavitation versus bronchiectasis or possibly necrotic change are similar to prior exam. Multiple additional areas of irregular consolidation and/or nodularity throughout the lungs, largely stable from prior exam, but with focal worsening at the left lung base. Vascular fact chronic postinflammatory change with additional new infection or atelectasis or scarring at the left lung base. Clinical correlation advised. Underlying advanced emphysema. Chest X-Ray 10/23/24 06:15 Impression: No interval change. COPD with stable extensive right apical consolidation and scarring/pleural thickening. Additional focal airspace opacity peripheral right midlung. Stable mild interstitial prominence left lung base, nonspecific. Labs Labs: Laboratory Results - last 24 hr 10/23/24 10/23/24 10/23/24 15:46 17:08 20:34 WBC RBC Hgb Hct MCV MCH MCHC RDW Plt Count MPV Sodium Potassium Chloride Carbon Dioxide Anion Gap BUN Creatinine Estim Creat Clear Calc Estimated GFR Glucose POC Capillary Glucose 212 H 193 H 297 H Calcium Total Bilirubin AST ALT Alkaline Phosphatase Total Protein Albumin 10/23/24 10/24/24 10/24/24 23:36 05:39 08:21 WBC 27.1 H RBC 3.06 L Hgb 10.9 L Hct 32.7 L MCV 106.9 H MCH 35.6 H MCHC 33.3 RDW 14.2 Plt Count 399 H MPV 10.2 Sodium 138 Potassium 3.6 Chloride 102 Carbon Dioxide 30 Anion Gap 6 BUN 24 H Creatinine 0.70 Estim Creat Clear Calc 83 Estimated GFR > 60 Glucose 270 H POC Capillary Glucose 360 H 286 H Calcium 9.4 Total Bilirubin 0.4 AST 32 ALT 24 Alkaline Phosphatase 154 H Total Protein 8.0 Albumin 4.0 10/24/24 12:24 WBC RBC Hgb Hct MCV MCH MCHC RDW Plt Count MPV Sodium Potassium Chloride Carbon Dioxide Anion Gap BUN Creatinine Estim Creat Clear Calc Estimated GFR Glucose POC Capillary Glucose 234 H Calcium Total Bilirubin AST ALT Alkaline Phosphatase Total Protein Albumin Quality VTE Prophylaxis VTE prophylaxis: pharmacologic ordered (Continue home Xarelto.) -Patient's previous records reviewed on admission -ER notes reviewed in detail on admission -discussed all findings and current treatment plan with patient/Family/POA -Consultations reviewed for recommendations -Patient's disposition for safe discharge discussed with trimming caser Dictation performed by [employer] direct speech recognition software, therefore sidehand variants and typographical errors may occur. Hospitalist MIPS Advance Care Plan I have confirmed that the patient's Advanced Care Plan is present, code status is documented, or surrogate decision maker is listed in patient medical record.: Yes Medication Reconciliation I have utilized all available resources to obtain, update and review the patients current medications (includes all prescriptions, OTC, herbals, cannabis, and nutritional supplements).: Yes The patient is not eligible for med reconciliation; the patient is in a emergent medical situation where delaying treatment would jeopardize the patients health.: No
[2024-10-24 14:08] LABS: Hematocrit 30.1 % (42.0-52.0); Hemoglobin 10.1 g/dL (14.0-18.0); Mean Corpuscular HGB Conc 33.6 g/dl (32-36); Mean Corpuscular Hemoglobin 35.3 pg (26-34); Mean Corpuscular Volume 105.2 fl (80-100); Mean Platelet Volume 9.8 fl (7.4-10.4); Platelet Count Result 389 k/mm3 (150-375); Red Blood Count 2.86 M/mm3 (4.6-6.20); Red Cell Distribution Width 14.4 % (11.5-14.5); White Blood Count 26.8 K/mm3 (4.5-10.0)
[2024-10-24 17:10] LABS: Glucose Point of Care 157 mg/dl (65-105)
[2024-10-24] MEDS: ATORVASTATIN 40 MG TABLET PO (20:58)
[2024-10-24] MEDS: MONTELUKAST SODIUM 10 MG TABLET PO (20:58)
[2024-10-24] MEDS: INSULIN GLARGINE (*BKC) 100 UNITS/ML SUB-Q (20:59)
[2024-10-24 21:38] LABS: Glucose Point of Care 272 mg/dl (65-105)
[2024-10-25] VITALS (14 sets, daily range): BP systolic 109–133; BP diastolic 67–77; PULSE 81–105; RESP 14–20; TEMP 36.3–36.6; O2SAT 93–100
[2024-10-25] MEDS: IPRATROPIUM 0.5 MG/ALBUTEROL SULFATE 2.5 MG AMPUL.NEB 3 ML INHALATION ×4 (02:20→20:13)
[2024-10-25 06:40] LABS: Hematocrit 30.4 % (42.0-52.0); Hemoglobin 10.1 g/dL (14.0-18.0); Mean Corpuscular HGB Conc 33.2 g/dl (32-36); Mean Corpuscular Hemoglobin 34.9 pg (26-34); Mean Corpuscular Volume 105.2 fl (80-100); Mean Platelet Volume 10.3 fl (7.4-10.4); Platelet Count Result 398 k/mm3 (150-375); Red Blood Count 2.89 M/mm3 (4.6-6.20); Red Cell Distribution Width 14.4 % (11.5-14.5); White Blood Count 22.7 K/mm3 (4.5-10.0)
[2024-10-25 06:46] LABS: Alanine Aminotransferase 21 U/L (6-50); Albumin Level 3.8 g/dL (3.5-5.1); Alkaline Phosphatase 137 U/L (38-126); Anion Gap 6 mmol/L (4-12); Aspartate Amino Transferase 31 U/L (17-59); Bilirubin,Total 0.4 mg/dL (0.2-1.3); Blood Urea Nitrogen 35 mg/dL (9-20); Calcium 8.9 mg/dL (8.4-10.2); Carbon Dioxide 30 mmol/L (22-30); Chloride 101 mmol/L (98-107); Estimated CRCL calculation 61 ml/min; Estimated Glomerular Filt Rate > 60; Glucose 228 mg/dL (65-110); Potassium 3.9 mmol/L (3.4-5.0); Sodium 137 mmol/L (137-145)
[2024-10-25 09:01] LABS: Glucose Point of Care 252 mg/dl (65-105)
[2024-10-25] MEDS: INSULIN ASPART (*BKC) 100 UNITS/ML SUB-Q ×2 (09:12→12:33)
[2024-10-25] MEDS: OMEGA 3 POLYUNSAT FATTY ACIDS 1 GM CAP PO (09:15)
[2024-10-25] MEDS: NICOTINE (*PBKC) 21 MG PATCH 1 PATCH TRANSDERM (09:15)
[2024-10-25] MEDS: predniSONE 20 MG TABLET 40 MG PO (09:15)
[2024-10-25] MEDS: CYANOCOBALAMIN 1,000 MCG TABLET 1000 MCG PO (09:15)
[2024-10-25] MEDS: CHOLECALCIFEROL 1,000 UNITS TABLET 2000 UNITS PO (09:15)
[2024-10-25] MEDS: GABAPENTIN 300 MG CAPSULE PO ×4 (09:15→20:28)
[2024-10-25] MEDS: mycophenolate mofetiL 250 MG CAPSULE 1000 MG PO ×2 (09:15→20:28)
[2024-10-25] MEDS: VORICONAZOLE 200 MG TABLET PO ×2 (09:16→20:28)
[2024-10-25] MEDS: METOPROLOL SUCCINATE EXT REL 12.5 MG TABCR PO (09:16)
[2024-10-25] MEDS: guaiFENesin 12 HR 600 MG TABCR PO ×2 (09:16→20:28)
[2024-10-25] MEDS: TACROLIMUS 0.5 MG CAPSULE PO (09:16)
[2024-10-25] MEDS: CLOPIDOGREL BISULFATE 75 MG TABLET PO (09:16)
[2024-10-25] MEDS: AZITHROMYCIN 250 MG TABLET PO (09:17)
[2024-10-25] MEDS: PANTOPRAZOLE 40 MG TABLET PO ×2 (09:17→20:28)
[2024-10-25] MEDS: ACYCLOVIR 400 MG TABLET PO ×3 (09:17→18:25)
[2024-10-25] MEDS: EMPAGLIFLOZIN 10 MG TABLET PO (09:18)
[2024-10-25 12:15] LABS: Glucose Point of Care 232 mg/dl (65-105)
--- NOTE | 2024-10-25 12:16 | P.PNIM_ITS ---
Progress Note: A&P Assessment and Plan (1) COPD exacerbation: Code(s): J44.1 - Chronic obstructive pulmonary disease with (acute) exacerbation Status: Acute Assessment and Plan: Patient states he had been out of his inhalers and nebulizers for the last 2 weeks has had increased worsening shortness of breath patient is still currently smoking * Bronchodilators. * Chest x-ray/Chest CT reviewed stable from previous * incentive spirometry while awake. * steroids initiated transitioned to PO * azithromycin 500 x 1 day/250 daily/Rocephin * supplemental oxygen therapy to maintain oxygen 92%/Wears 3L NC at home * Smoking cessation counseling done * Follow-up with shift superintendent caustic cresylate as an outpatient (2) Acute on chronic respiratory failure with hypoxia and hypercapnia: Code(s): J96.21 - Acute and chronic respiratory failure with hypoxia; J96.22 - Acute and chronic respiratory failure with hypercapnia Status: Acute Assessment and Plan: Patient last treated at [facility] of cavitary lesions and refractory infection was positive for Mycobacterium avium and stenotrophomonas patient received IV azithromycin, FM albuterol and Amikacin last sputum here at [place] grew Pseudomonas resistant to Levaquin 07/23/2024 time of transfer * follow-up CT cavitation lesion similar to prior exam but did show focal worsening of the left lung base could be post inflammatory change or possible new infection * WBC peaked at 27 * started on azithromycin and cefepime based off previous culture of Pseudomonas * Likely secondary to COPD exacerbation * weaned 02 to 3L home oxygen * Bipap Prn * Encourage smoking cessation (3) Leukocytosis: Code(s): D72.829 - Elevated white blood cell count, unspecified Status: Acute Assessment and Plan: * WBC bumped from 4.4 to 27.1 overnight * likely reactive to 80mg IV steroids rather than infectious * has been on azithromycin and Rocephin * Trend his steroids to p.o. 40 days * Stat repeat CBC * Follow-up CBC in the a.m. 10/25/2024: * added IV cefepime based on previous sputum of Pseudomonas resistant to Levaquin * CT with Vascular fact chronic postinflammatory change with additional new infection or atelectasis * Sputum culture pending * WBC 22 (4) Dysphagia: Code(s): R13.10 - Dysphagia, unspecified Status: Acute Assessment and Plan: * Patient reports food getting stuck and he has to really regurgitate at times * Has weight loss in loss 2 months * Has had previous difficulties states he believes he had an EGD but did not results a few years ago * GI was consulted * Plan for EGD 10/26 evaluate for any esophageal strictures, mass, esophagitis * Soft diet 10/25/2024: * NPO at midnight (5) Type 2 diabetes mellitus with hyperglycemia, with long-term current use of insulin: Code(s): E11.65 - Type 2 diabetes mellitus with hyperglycemia; Z79.4 - long term care pharmacist (current) use of insulin Status: Acute Assessment and Plan: * Accu-Cheks a.c. 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 He is ambulatory own and plan is return discharge. Time Spent With Patient Time with patient: 15 - 25 minutes Subjective Date/time seen: 10/25/24 12:16 Interval history: Patient is a 58-year-old male who was admitted to IMU initially for acute on chronic respiratory failure with hypoxia who required BiPAP on admission wears chronic supplemental oxygen at home. 10/25/2024: Patient feeling well today still with difficulty swallowing and now reports a productive cough. Denied CP, N/V, fever or chills. WBC slowly trending down started IV cefepime based on previous sputum. Review of Systems Review of Systems: 12 systems were reviewed with pertinent positives and negatives per HPI. Except as documented in the HPI, all other systems were reviewed and are negative. All systems reviewed & are unremarkable except as noted in HPI and below Exam Narrative: Weight 57 kg BMI 17.5 Const: Other: Chronically ill-appearing, thin body habitus, no acute distress, appears much older than stated age HENMT: Other: Mucous membranes are moist, edentulous in upper and lower jaw, head is normocephalic atraumatic Eyes: Other: Positive conjunctival pallor, no scleral icterus Neck: Other: No JVD, no thyromegaly, supple Resp: Other: Decreased breath sounds bilateral posterior lung leger, faint expiratory wheezing anterior leger Cardio: Other: Mildly tachycardic, regular rhythm, 2+ bilateral radial pedal pulses, no murmur GI: Other: Soft, nontender, nondistended, positive bowel sounds Back/Spine/Pelvis: Other: Normal alignment, no crepitus Skin: Other: Generalized pallor, non jaundice Neuro: Other: Alert oriented x4, speech is clear, no facial asymmetry, moves all extremities equally, no localizing neurologic deficits noted during the course of conversation Extrem: Other: No cyanosis, no edema, staining to the fingernails that her overgrown on both hands Psych: Other: Appropriate mood and affect, pleasant and cooperative, fair judgment and insight Objective Data Vital Signs Vital Signs: Vital Signs - 24 hr 10/24/24 13:37 10/24/24 14:05 10/24/24 14:05 Temperature 97.5 F L Pulse Rate 85 92 Respiratory Rate 18 20 Blood Pressure 110/65 Pulse Oximetry 94 93 Oxygen Delivery Room Air Oxygen Flow Rate Fraction of Inspired Oxygen 21 10/24/24 14:15 10/24/24 17:54 10/24/24 20:42 Temperature 97.5 F L Pulse Rate 94 82 Respiratory Rate 20 18 Blood Pressure 118/75 Pulse Oximetry 91 92 Oxygen Delivery Room Air Oxygen Flow Rate Fraction of Inspired Oxygen 10/24/24 20:42 10/24/24 20:53 10/24/24 20:00 Temperature 97.2 F L Pulse Rate 62 60 110 H Respiratory Rate 16 16 20 Blood Pressure 132/71 Pulse Oximetry 100 Oxygen Delivery Oxygen Flow Rate Fraction of Inspired Oxygen 10/24/24 20:00 10/25/24 02:20 10/25/24 02:25 Temperature Pulse Rate 84 94 Respiratory Rate 16 16 Blood Pressure Pulse Oximetry 96 Oxygen Delivery Nasal Cannula Oxygen Flow Rate 3 Fraction of Inspired Oxygen 10/25/24 02:40 10/25/24 06:00 10/25/24 07:51 Temperature 97.4 F L Pulse Rate 89 Respiratory Rate 20 Blood Pressure 109/67 Pulse Oximetry 96 98 94 Oxygen Delivery Nasal Cannula Room Air Oxygen Flow Rate 2 Fraction of Inspired Oxygen 10/25/24 07:51 10/25/24 08:09 10/25/24 09:16 Temperature Pulse Rate 88 81 105 H Respiratory Rate 16 16 Blood Pressure Pulse Oximetry Oxygen Delivery Oxygen Flow Rate Fraction of Inspired Oxygen Intake/Output Intake/Output: Intake & Output 10/22/24 10/23/24 10/24/24 10/25/24 23:59 23:59 23:59 23:59 Intake Total 1380 1850 790 Output Total 550 2600 1100 Balance 149 -984 -187 Meds/Results Medications: Active Medications Generic Name Dose Route Start Last Admin Trade Name Freq PRN Reason Stop Dose Admin Acyclovir 400 mg 10/23/24 09:00 10/25/24 09:17 Acyclovir 400 Mg Tablet PO 400 mg TID ROSA MARIA Administration Albuterol/Ipratropium 3 ml 10/23/24 08:00 10/25/24 07:51 Ipratropium 0.5 Mg/Albuterol Sulfate 2.5 Mg Ampul.Neb 3 Ml INHALATION 3 ml Q6HRT ROSA MARIA Administration Atorvastatin Calcium 40 mg 10/23/24 21:00 10/24/24 20:58 Atorvastatin 40 Mg Tablet PO 40 mg HS ROSA MARIA Administration Azithromycin 250 mg 10/24/24 09:00 10/25/24 09:17 Azithromycin 250 Mg Tablet PO 10/27/24 09:01 250 mg DAILY ROSA MARIA Administration Clopidogrel Bisulfate 75 mg 10/23/24 09:00 10/25/24 09:16 Clopidogrel Bisulfate 75 Mg Tablet PO 75 mg DAILY ROSA MARIA Administration Cyanocobalamin 1,000 mcg 10/23/24 09:00 10/25/24 09:15 Cyanocobalamin 1,000 Mcg Tablet PO 1,000 mcg DAILY ROSA MARIA Administration Dextrose 12.5 gm 10/23/24 08:01 Dextrose 50% 25 Gm/50 Ml Syringe IV PUSH PRN PRN Hypoglycemia Protocol Empagliflozin 10 mg 10/23/24 09:00 10/25/24 09:18 Empagliflozin 10 Mg Tablet PO 10 mg DAILY ROSA MARIA Administration Fish Oil 1 gm 10/23/24 09:00 10/25/24 09:15 [place] 3 Polyunsat Fatty Acids 1 Gm Cap PO 1 gm DAILY ROSA MARIA Administration Fluticasone/Umeclidinium/Vilanterol 1 puff 10/23/24 08:00 10/25/24 12:03 Fluticasone/Umeclidin/Vilanter 200-62.5-25 Mcg Ellipta INHALATION Not Given DAILYRT ROSA MARIA Gabapentin 300 mg 10/23/24 09:00 10/25/24 09:15 Gabapentin 300 Mg Capsule PO 300 mg QID ROSA MARIA Administration Glucagon 1 mg 10/23/24 08:01 Glucagon For Inj 1 Mg Vial IM PRN PRN Hypoglycemia Protocol Glucose 15 gm 10/23/24 08:01 Glucose Oral Gel 15 Gm Of Glucse In 37.5 Gm Tube PO PRN PRN Hypoglycemia Protocol Guaifenesin 600 mg 10/23/24 09:00 10/25/24 09:16 Guaifenesin 12 Hr 600 Mg Tabcr PO 600 mg Q12HR ROSA MARIA Administration Dextrose 1,000 mls @ 100 mls/hr 10/23/24 08:01 Dextrose 5% 1,000 Ml IVPB PRN PRN Hypoglycemia Protocol Insulin Aspart 4 - 8 units 10/24/24 08:00 10/25/24 09:12 Insulin Aspart (*Bkc) 100 Units/Ml SUB-Q 5 units TIDWM ROSA MARIA Administration Protocol Insulin Aspart 2 - 4 units 10/24/24 21:00 10/24/24 20:59 Insulin Aspart (*Bkc) 100 Units/Ml SUB-Q 2 units HS ROSA MARIA Administration Protocol Insulin Glargine 5 units 10/23/24 21:00 10/24/24 20:59 Insulin Glargine (*Bkc) 100 Units/Ml SUB-Q 5 units HS ROSA MARIA Administration Melatonin 10 mg 10/23/24 22:55 10/23/24 23:33 Melatonin 5 Mg Tablet PO 10 mg HS PRN Administration Insomnia Metoprolol Succinate 12.5 mg 10/23/24 09:00 10/25/24 09:16 Metoprolol Succinate Ext Rel 12.5 Mg Tabcr PO 12.5 mg DAILY ROSA MARIA Administration Montelukast Sodium 10 mg 10/23/24 21:00 10/24/24 20:58 Montelukast Sodium 10 Mg Tablet PO 10 mg HS ROSA MARIA Administration Mycophenolate Mofetil 1,000 mg 10/23/24 09:00 10/25/24 09:15 Mycophenolate Mofetil 250 Mg Capsule PO 1,000 mg Q12HR ROSA MARIA Administration Nicotine 1 patch 10/23/24 09:00 10/25/24 09:15 Nicotine (*Pbkc) 21 Mg Patch TRANSDERM 1 patch DAILY ROSA MARIA Administration Ondansetron HCl 4 mg 10/23/24 03:12 Ondansetron Inj 4 Mg/2 Ml Vial IV PUSH Q4H PRN Nausea Pantoprazole Sodium 40 mg 10/23/24 09:00 10/25/24 09:17 Pantoprazole 40 Mg Tablet PO 40 mg Q12HR ROSA MARIA Administration Prednisone 40 mg 10/24/24 08:00 10/25/24 09:15 Prednisone 20 Mg Tablet PO 40 mg DAILY@0800 ROSA MARIA Administration Rivaroxaban 20 mg 10/23/24 17:00 10/23/24 16:11 Rivaroxaban 20 Mg Tablet PO 20 mg DAILY@1700 ROSA MARIA Administration Tacrolimus 0.5 mg 10/23/24 09:00 10/25/24 09:16 Tacrolimus 0.5 Mg Capsule PO 0.5 mg Q48HR ROSA MARIA Administration Vitamin D 2,000 units 10/23/24 09:00 10/25/24 09:15 Cholecalciferol 1,000 Units Tablet PO 2,000 units DAILY ROSA MARIA Administration Voriconazole 200 mg 10/23/24 09:00 10/25/24 09:16 Voriconazole 200 Mg Tablet PO 200 mg Q12HR ROSA MARIA Administration Radiology Results: ITS Impressions Chest CT 10/23/24 06:04 Impression: Extensive irregular right apical consolidation with areas of cavitation versus bronchiectasis or possibly necrotic change are similar to prior exam. Multiple additional areas of irregular consolidation and/or nodularity throughout the lungs, largely stable from prior exam, but with focal worsening at the left lung base. Vascular fact chronic postinflammatory change with additional new infection or atelectasis or scarring at the left lung base. Clinical correlation advised. Underlying advanced emphysema. Chest X-Ray 10/23/24 06:15 Impression: No interval change. COPD with stable extensive right apical consolidation and scarring/pleural thickening. Additional focal airspace opacity peripheral right midlung. Stable mild interstitial prominence left lung base, nonspecific. Labs Labs: Laboratory Results - last 24 hr 10/24/24 10/24/24 10/24/24 12:24 13:55 17:00 WBC 26.8 H RBC 2.86 L Hgb 10.1 L Hct 30.1 L MCV 105.2 H MCH 35.3 H MCHC 33.6 RDW 14.4 Plt Count 389 H MPV 9.8 Sodium Potassium Chloride Carbon Dioxide Anion Gap BUN Creatinine Estim Creat Clear Calc Estimated GFR Glucose POC Capillary Glucose 234 H 157 H Calcium Total Bilirubin AST ALT Alkaline Phosphatase Total Protein Albumin 10/24/24 10/25/24 10/25/24 20:26 05:54 08:50 WBC 22.7 H RBC 2.89 L Hgb 10.1 L Hct 30.4 L MCV 105.2 H MCH 34.9 H MCHC 33.2 RDW 14.4 Plt Count 398 H MPV 10.3 Sodium 137 Potassium 3.9 Chloride 101 Carbon Dioxide 30 Anion Gap 6 BUN 35 H D Creatinine 1.00 Estim Creat Clear Calc 61 Estimated GFR > 60 Glucose 228 H POC Capillary Glucose 272 H 252 H Calcium 8.9 Total Bilirubin 0.4 AST 31 ALT 21 Alkaline Phosphatase 137 H Total Protein 7.0 Albumin 3.8 10/25/24 12:06 WBC RBC Hgb Hct MCV MCH MCHC RDW Plt Count MPV Sodium Potassium Chloride Carbon Dioxide Anion Gap BUN Creatinine Estim Creat Clear Calc Estimated GFR Glucose POC Capillary Glucose 232 H Calcium Total Bilirubin AST ALT Alkaline Phosphatase Total Protein Albumin Quality VTE Prophylaxis VTE prophylaxis: pharmacologic ordered (Continue home Xarelto.) -Patient's previous records reviewed on admission -ER notes reviewed in detail on admission -discussed all findings and current treatment plan with patient/Family/POA -Consultations reviewed for recommendations -Patient's disposition for safe discharge discussed with family preservation caseworker Dictation performed by [employer] direct speech recognition software, therefore filemaker developer variants and typographical errors may occur. Hospitalist MIPS Advance Care Plan I have confirmed that the patient's Advanced Care Plan is present, code status is documented, or surrogate decision maker is listed in patient medical record.: Yes Medication Reconciliation I have utilized all available resources to obtain, update and review the patients current medications (includes all prescriptions, OTC, herbals, cannabis, and nutritional supplements).: Yes The patient is not eligible for med reconciliation; the patient is in a emergent medical situation where delaying treatment would jeopardize the patients health.: No
[2024-10-25] MEDS: FLUTICASONE/UMECLIDIN/VILANTER 200-62.5-25 MCG ELLIPTA 1 PUFF INHALATION (13:52)
[2024-10-25] MEDS: CEFEPIME 1 GM/NS 50 ML 1 GM/50 ML BAG IVPB ×2 (14:52→20:28)
--- NOTE | 2024-10-25 15:28 | WPDGIPROGNO ---
Progress Note: A&P Assessment and Plan (1) Dysphagia: Code(s): R13.10 - Dysphagia, unspecified Status: Acute Assessment and Plan: EGD tomorrow to assess esophagus given dysphagia to solids, ? esophagitis/ring (2) Acute on chronic respiratory failure with hypoxia and hypercapnia: Code(s): J96.21 - Acute and chronic respiratory failure with hypoxia; J96.22 - Acute and chronic respiratory failure with hypercapnia Status: Acute Assessment and Plan: improved, he is breathing much better without oxygen (3) Acute exacerbation of chronic obstructive pulmonary disease: Code(s): J44.1 - Chronic obstructive pulmonary disease with (acute) exacerbation Status: Acute (4) Insulin dependent type 2 diabetes mellitus: Code(s): E11.9 - Type 2 diabetes mellitus without complications; Z79.4 - termite renewal inspector (current) use of insulin Status: Acute (5) Immunocompromised patient: Code(s): D84.9 - Immunodeficiency, unspecified Status: Acute Subjective Date/time seen: 10/25/24 15:28 Interval history: similar dysphagia, no changes, he is comfortable Review of Systems Review of Systems: All systems reviewed & are unremarkable except as noted in HPI and below Exam Const: Other: Chronically ill-appearing, thin body habitus, no acute distress good spirits HENMT: Face/Nose/Sinus: Normal nares present Eyes: Other: Positive conjunctival pallor, no scleral icterus Neck: Neck: no JVD Resp: Auscultation: no wheezes Cardio: Rhythm: regular rhythm GI: GI Palp: Yes Soft to palpation and No Tenderness to palpation present (GI) Auscultation: normal bowel sounds Back/Spine/Pelvis: Other: Normal alignment, no crepitus Skin: Other: Generalized pallor, non jaundice Neuro: Speech: normal speech Motor exam (neuro): 5/5 motor strength present throughout Extrem: Other: No cyanosis, no edema Psych: Other: Appropriate mood and affect, pleasant and cooperative, fair judgment and insight Objective Data Vital Signs Vital Signs: Vital Signs - 24 hr 10/24/24 17:54 10/24/24 20:42 10/24/24 20:42 Temperature 97.5 F L Pulse Rate 82 62 Respiratory Rate 18 16 Blood Pressure 118/75 Pulse Oximetry 91 92 Oxygen Delivery Room Air Oxygen Flow Rate 10/24/24 20:53 10/24/24 20:00 10/24/24 20:00 Temperature 97.2 F L Pulse Rate 60 110 H Respiratory Rate 16 20 Blood Pressure 132/71 Pulse Oximetry 100 96 Oxygen Delivery Nasal Cannula Oxygen Flow Rate 3 10/25/24 02:20 10/25/24 02:25 10/25/24 02:40 Temperature Pulse Rate 84 94 Respiratory Rate 16 16 Blood Pressure Pulse Oximetry 96 Oxygen Delivery Nasal Cannula Oxygen Flow Rate 2 10/25/24 06:00 10/25/24 07:51 10/25/24 07:51 Temperature 97.4 F L Pulse Rate 89 88 Respiratory Rate 20 16 Blood Pressure 109/67 Pulse Oximetry 98 94 Oxygen Delivery Room Air Oxygen Flow Rate 10/25/24 08:09 10/25/24 09:16 10/25/24 09:16 Temperature Pulse Rate 81 105 H Respiratory Rate 16 Blood Pressure Pulse Oximetry 98 Oxygen Delivery Room Air Oxygen Flow Rate 10/25/24 13:52 10/25/24 14:01 10/25/24 14:00 Temperature 97.8 F Pulse Rate 84 85 97 Respiratory Rate 16 16 16 Blood Pressure 133/76 Pulse Oximetry 98 Oxygen Delivery Oxygen Flow Rate Intake/Output Intake/Output: Intake & Output 10/22/24 10/23/24 10/24/24 10/25/24 23:59 23:59 23:59 23:59 Intake Total 1380 1850 1030 Output Total 550 2600 1615 Balance 244 -176 -385 Meds/Results Medications: Active Medications Generic Name Dose Route Start Last Admin Trade Name Freq PRN Reason Stop Dose Admin Acyclovir 400 mg 10/23/24 09:00 10/25/24 12:36 Acyclovir 400 Mg Tablet PO 400 mg TID ROSA MARIA Administration Albuterol/Ipratropium 3 ml 10/23/24 08:00 10/25/24 13:52 Ipratropium 0.5 Mg/Albuterol Sulfate 2.5 Mg Ampul.Neb 3 Ml INHALATION 3 ml Q6HRT ROSA MARIA Administration Atorvastatin Calcium 40 mg 10/23/24 21:00 10/24/24 20:58 Atorvastatin 40 Mg Tablet PO 40 mg HS ROSA MARIA Administration Azithromycin 250 mg 10/24/24 09:00 10/25/24 09:17 Azithromycin 250 Mg Tablet PO 10/27/24 09:01 250 mg DAILY ROSA MARIA Administration Clopidogrel Bisulfate 75 mg 10/23/24 09:00 10/25/24 09:16 Clopidogrel Bisulfate 75 Mg Tablet PO 75 mg DAILY ROSA MARIA Administration Cyanocobalamin 1,000 mcg 10/23/24 09:00 10/25/24 09:15 Cyanocobalamin 1,000 Mcg Tablet PO 1,000 mcg DAILY ROSA MARIA Administration Dextrose 12.5 gm 10/23/24 08:01 Dextrose 50% 25 Gm/50 Ml Syringe IV PUSH PRN PRN Hypoglycemia Protocol Empagliflozin 10 mg 10/23/24 09:00 10/25/24 09:18 Empagliflozin 10 Mg Tablet PO 10 mg DAILY ROSA MARIA Administration Fish Oil 1 gm 10/23/24 09:00 10/25/24 09:15 [place] 3 Polyunsat Fatty Acids 1 Gm Cap PO 1 gm DAILY ROSA MARIA Administration Fluticasone/Umeclidinium/Vilanterol 1 puff 10/23/24 08:00 10/25/24 13:52 Fluticasone/Umeclidin/Vilanter 200-62.5-25 Mcg Ellipta INHALATION 1 puff DAILYRT ROSA MARIA Administration Gabapentin 300 mg 10/23/24 09:00 10/25/24 12:36 Gabapentin 300 Mg Capsule PO 300 mg QID ROSA MARIA Administration Glucagon 1 mg 10/23/24 08:01 Glucagon For Inj 1 Mg Vial IM PRN PRN Hypoglycemia Protocol Glucose 15 gm 10/23/24 08:01 Glucose Oral Gel 15 Gm Of Glucse In 37.5 Gm Tube PO PRN PRN Hypoglycemia Protocol Guaifenesin 600 mg 10/23/24 09:00 10/25/24 09:16 Guaifenesin 12 Hr 600 Mg Tabcr PO 600 mg Q12HR ROSA MARIA Administration Dextrose 1,000 mls @ 100 mls/hr 10/23/24 08:01 Dextrose 5% 1,000 Ml IVPB PRN PRN Hypoglycemia Protocol Cefepime HCl 1 gm in 50 mls @ 100 mls/hr 10/25/24 13:00 10/25/24 14:52 Maxipime 1 Gm/Ns 50 Ml IVPB 100 mls/hr Q8HR ROSA MARIA Administration Insulin Aspart 4 - 8 units 10/24/24 08:00 10/25/24 12:33 Insulin Aspart (*Bkc) 100 Units/Ml SUB-Q 4 units TIDWM ROSA MARIA Administration Protocol Insulin Aspart 2 - 4 units 10/24/24 21:00 10/24/24 20:59 Insulin Aspart (*Bkc) 100 Units/Ml SUB-Q 2 units HS ROSA MARIA Administration Protocol Insulin Glargine 5 units 10/23/24 21:00 10/24/24 20:59 Insulin Glargine (*Bkc) 100 Units/Ml SUB-Q 5 units HS ROSA MARIA Administration Melatonin 10 mg 10/23/24 22:55 10/23/24 23:33 Melatonin 5 Mg Tablet PO 10 mg HS PRN Administration Insomnia Metoprolol Succinate 12.5 mg 10/23/24 09:00 10/25/24 09:16 Metoprolol Succinate Ext Rel 12.5 Mg Tabcr PO 12.5 mg DAILY ROSA MARIA Administration Montelukast Sodium 10 mg 10/23/24 21:00 10/24/24 20:58 Montelukast Sodium 10 Mg Tablet PO 10 mg HS ROSA MARIA Administration Mycophenolate Mofetil 1,000 mg 10/23/24 09:00 10/25/24 09:15 Mycophenolate Mofetil 250 Mg Capsule PO 1,000 mg Q12HR ROSA MARIA Administration Nicotine 1 patch 10/23/24 09:00 10/25/24 09:15 Nicotine (*Pbkc) 21 Mg Patch TRANSDERM 1 patch DAILY ROSA MARIA Administration Ondansetron HCl 4 mg 10/23/24 03:12 Ondansetron Inj 4 Mg/2 Ml Vial IV PUSH Q4H PRN Nausea Pantoprazole Sodium 40 mg 10/23/24 09:00 10/25/24 09:17 Pantoprazole 40 Mg Tablet PO 40 mg Q12HR ROSA MARIA Administration Prednisone 40 mg 10/24/24 08:00 10/25/24 09:15 Prednisone 20 Mg Tablet PO 40 mg DAILY@0800 ROSA MARIA Administration Rivaroxaban 20 mg 10/23/24 17:00 10/23/24 16:11 Rivaroxaban 20 Mg Tablet PO 20 mg DAILY@1700 ROSA MARIA Administration Tacrolimus 0.5 mg 10/23/24 09:00 10/25/24 09:16 Tacrolimus 0.5 Mg Capsule PO 0.5 mg Q48HR ROSA MARIA Administration Vitamin D 2,000 units 10/23/24 09:00 10/25/24 09:15 Cholecalciferol 1,000 Units Tablet PO 2,000 units DAILY ROSA MARIA Administration Voriconazole 200 mg 10/23/24 09:00 10/25/24 09:16 Voriconazole 200 Mg Tablet PO 200 mg Q12HR ROSA MARIA Administration Radiology Results: ITS Impressions Chest CT 10/23/24 06:04 Impression: Extensive irregular right apical consolidation with areas of cavitation versus bronchiectasis or possibly necrotic change are similar to prior exam. Multiple additional areas of irregular consolidation and/or nodularity throughout the lungs, largely stable from prior exam, but with focal worsening at the left lung base. Vascular fact chronic postinflammatory change with additional new infection or atelectasis or scarring at the left lung base. Clinical correlation advised. Underlying advanced emphysema. Chest X-Ray 10/23/24 06:15 Impression: No interval change. COPD with stable extensive right apical consolidation and scarring/pleural thickening. Additional focal airspace opacity peripheral right midlung. Stable mild interstitial prominence left lung base, nonspecific. Labs Labs: Laboratory Results - last 24 hr 10/24/24 10/24/24 10/25/24 17:00 20:26 05:54 WBC 22.7 H RBC 2.89 L Hgb 10.1 L Hct 30.4 L MCV 105.2 H MCH 34.9 H MCHC 33.2 RDW 14.4 Plt Count 398 H MPV 10.3 Sodium 137 Potassium 3.9 Chloride 101 Carbon Dioxide 30 Anion Gap 6 BUN 35 H D Creatinine 1.00 Estim Creat Clear Calc 61 Estimated GFR > 60 Glucose 228 H POC Capillary Glucose 157 H 272 H Calcium 8.9 Total Bilirubin 0.4 AST 31 ALT 21 Alkaline Phosphatase 137 H Total Protein 7.0 Albumin 3.8 10/25/24 10/25/24 08:50 12:06 WBC RBC Hgb Hct MCV MCH MCHC RDW Plt Count MPV Sodium Potassium Chloride Carbon Dioxide Anion Gap BUN Creatinine Estim Creat Clear Calc Estimated GFR Glucose POC Capillary Glucose 252 H 232 H Calcium Total Bilirubin AST ALT Alkaline Phosphatase Total Protein Albumin
[2024-10-25 17:20] LABS: Glucose Point of Care 135 mg/dl (65-105)
[2024-10-25] MEDS: MONTELUKAST SODIUM 10 MG TABLET PO (20:28)
[2024-10-25] MEDS: ATORVASTATIN 40 MG TABLET PO (20:28)
[2024-10-25] MEDS: MELATONIN 5 MG TABLET 10 MG PO (20:29)
[2024-10-25] MEDS: INSULIN GLARGINE (*BKC) 100 UNITS/ML 12 UNITS SUB-Q (20:31)
[2024-10-25 21:18] LABS: Glucose Point of Care 328 mg/dl (65-105)
[2024-10-26] VITALS (16 sets, daily range): BP systolic 75–146; BP diastolic 43–88; PULSE 52–95; RESP 14–23; TEMP 36.2–36.9; O2SAT 92–100
[2024-10-26] MEDS: IPRATROPIUM 0.5 MG/ALBUTEROL SULFATE 2.5 MG AMPUL.NEB 3 ML INHALATION ×4 (02:33→20:05)
[2024-10-26] MEDS: CEFEPIME 1 GM/NS 50 ML 1 GM/50 ML BAG IVPB (05:07)
[2024-10-26 05:46] LABS: Hematocrit 30.9 % (42.0-52.0); Hemoglobin 10.1 g/dL (14.0-18.0); Mean Corpuscular HGB Conc 32.7 g/dl (32-36); Mean Corpuscular Hemoglobin 34.6 pg (26-34); Mean Corpuscular Volume 105.8 fl (80-100); Mean Platelet Volume 9.9 fl (7.4-10.4); Platelet Count Result 378 k/mm3 (150-375); Red Blood Count 2.92 M/mm3 (4.6-6.20); Red Cell Distribution Width 14.5 % (11.5-14.5); White Blood Count 18.5 K/mm3 (4.5-10.0)
[2024-10-26 06:00] LABS: Alanine Aminotransferase 25 U/L (6-50); Albumin Level 3.5 g/dL (3.5-5.1); Alkaline Phosphatase 130 U/L (38-126); Anion Gap 5 mmol/L (4-12); Aspartate Amino Transferase 36 U/L (17-59); Bilirubin,Total 0.4 mg/dL (0.2-1.3); Blood Urea Nitrogen 38 mg/dL (9-20); Calcium 8.6 mg/dL (8.4-10.2); Carbon Dioxide 30 mmol/L (22-30); Chloride 102 mmol/L (98-107); Estimated CRCL calculation 75 ml/min; Estimated Glomerular Filt Rate > 60; Glucose 163 mg/dL (65-110); Potassium 3.6 mmol/L (3.4-5.0); Sodium 137 mmol/L (137-145)
[2024-10-26] MEDS: FLUTICASONE/UMECLIDIN/VILANTER 200-62.5-25 MCG ELLIPTA 1 PUFF INHALATION (07:20)
[2024-10-26 07:44] LABS: Hemoglobin A1C 6.3 % (<5.7)
--- NOTE | 2024-10-26 08:57 | P.PNIM_ITS ---
Progress Note: A&P Assessment and Plan (1) Pseudomonas pneumonia: Code(s): J15.1 - Pneumonia due to Pseudomonas Status: Acute Assessment and Plan: Patient last treated at [facility] of cavitary lesions and refractory infection was positive for Mycobacterium avium and stenotrophomonas patient received IV azithromycin, FM albuterol and Amikacin last sputum here at [place] grew Pseudomonas resistant to Levaquin 07/23/2024 time of transfer was never treated for a Pseudomonas at [place] * WBC bumped from 4.4 to 27.1 overnight * has been on azithromycin and Rocephin * transitioned his steroids to p.o. 40 days in case reactive * Stat repeat CBC * Follow-up CBC in the a.m. * Last sputum culture in 07/2024 Pseudomonas resistant to Levaquin 10/25/2024: * added IV cefepime based on previous sputum of Pseudomonas resistant to Levaquin * CT with Vascular fact chronic postinflammatory change with additional new infection or atelectasis * Sputum culture pending * WBC 22 10/26/2024: * WBC trending down * sputum pending * continue cefepime pending culture (2) COPD exacerbation: Code(s): J44.1 - Chronic obstructive pulmonary disease with (acute) exacerbation Status: Acute Assessment and Plan: Patient states he had been out of his inhalers and nebulizers for the last 2 weeks has had increased worsening shortness of breath patient is still currently smoking * Bronchodilators. * Chest x-ray/Chest CT reviewed stable from previous * incentive spirometry while awake. * steroids initiated transitioned to PO * azithromycin 500 x 1 day/250 daily/Rocephin * supplemental oxygen therapy to maintain oxygen 92%/Wears 3L NC at home * Smoking cessation counseling done * Follow-up with semiconductor technician as an outpatient (3) Acute on chronic respiratory failure with hypoxia and hypercapnia: Code(s): J96.21 - Acute and chronic respiratory failure with hypoxia; J96.22 - Acute and chronic respiratory failure with hypercapnia Status: Acute Assessment and Plan: Patient last treated at [facility] of cavitary lesions and refractory infection was positive for Mycobacterium avium and stenotrophomonas patient received IV azithromycin, FM albuterol and Amikacin last sputum here at [place] grew Pseudomonas resistant to Levaquin 07/23/2024 time of transfer * follow-up CT cavitation lesion similar to prior exam but did show focal worsening of the left lung base could be post inflammatory change or possible new infection * WBC peaked at 27 * started on azithromycin and cefepime based off previous culture of Pseudomona s * Likely secondary to COPD exacerbation * weaned 02 to 3L home oxygen * Bipap Prn * Encourage smoking cessation (4) Dysphagia: Code(s): R13.10 - Dysphagia, unspecified Status: Acute Assessment and Plan: * Patient reports food getting stuck and he has to really regurgitate at times * Has weight loss in loss 2 months * Has had previous difficulties states he believes he had an EGD but did not results a few years ago * GI was consulted * Plan for EGD 10/26 evaluate for any esophageal strictures, mass, esophagitis * Soft diet 10/25/2024: * NPO at midnight 10/26/2024 * EGD today (5) Type 2 diabetes mellitus with hyperglycemia, with long-term current use of insulin: Code(s): E11.65 - Type 2 diabetes mellitus with hyperglycemia; Z79.4 - superintendent 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) use of insulin Status: Acute Assessment and Plan: * Accu-Cheks a.c. 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 (7) Malnutrition of moderate degree: Code(s): E44.0 - Moderate protein-calorie malnutrition Status: Acute Assessment and Plan: * Dietitian consulted * Likely secondary to patient's dysphagia and recent hospitalizations * Add dietary supplements Plan Code status: Full code per patient DVT prophylaxis: Xarelto Stress ulcer prophylaxis: Protonix 40 daily PT/OT notes: Ambulatory Disposition: Patient continues admission to medical unit for acute on chronic respiratory failure with hypoxia will treat for possible new infection of the left lung base as well as dysphagia plan for EGD Friday 10/26 patient has been weaned back to his 3 L supplemental home oxygen. Treating for possible pneumonia with cefepime pending sputum culture He is ambulatory own and plan is return discharge. Time Spent With Patient Time with patient: 15 - 25 minutes Subjective Date/time seen: 10/26/24 1300 Interval history: Patient is a 58-year-old male who was admitted to IMU initially for acute on chronic respiratory failure with hypoxia who required BiPAP on admission wears chronic supplemental oxygen at home. 10/26/2024: Patient seen after his EGD tolerated well showing gastritis. Patient still reports some SOB with exertion but improving, also reports a more productive cough sputum pending. Denied any fevers, chills, CP, or N/V. tolerating oral intake will continue with soft diet. WBC improving Review of Systems Review of Systems: 12 systems were reviewed with pertinent positives and negatives per HPI. Except as documented in the HPI, all other systems were reviewed and are negative. All systems reviewed & are unremarkable except as noted in HPI and below Exam Narrative: Weight 57 kg BMI 17.5 Const: Other: Chronically ill-appearing, thin body habitus, no acute distress, appears much older than stated age HENMT: Other: Mucous membranes are moist, edentulous in upper and lower jaw, head is normocephalic atraumatic Eyes: Other: Positive conjunctival pallor, no scleral icterus Neck: Other: No JVD, no thyromegaly, supple Resp: Other: Decreased breath sounds bilateral posterior lung leger, faint expiratory wheezing anterior leger Cardio: Other: Mildly tachycardic, regular rhythm, 2+ bilateral radial pedal pulses, no murmur GI: Other: Soft, nontender, nondistended, positive bowel sounds Back/Spine/Pelvis: Other: Normal alignment, no crepitus Skin: Other: Generalized pallor, non jaundice Neuro: Other: Alert oriented x4, speech is clear, no facial asymmetry, moves all extremities equally, no localizing neurologic deficits noted during the course of conversation Extrem: Other: No cyanosis, no edema, staining to the fingernails that her overgrown on both hands Psych: Other: Appropriate mood and affect, pleasant and cooperative, fair judgment and insight Objective Data Vital Signs Vital Signs: Vital Signs - 24 hr 10/25/24 09:16 10/25/24 09:16 10/25/24 13:52 Temperature Pulse Rate 105 H 84 Respiratory Rate 16 Blood Pressure Pulse Oximetry 98 Oxygen Delivery Room Air Oxygen Flow Rate Fraction of Inspired Oxygen 10/25/24 14:01 10/25/24 14:00 10/25/24 19:54 Temperature 97.8 F 97.5 F L Pulse Rate 85 97 97 Respiratory Rate 16 16 18 Blood Pressure 133/76 128/77 Pulse Oximetry 98 95 Oxygen Delivery Oxygen Flow Rate Fraction of Inspired Oxygen 10/25/24 20:14 10/25/24 20:14 10/25/24 20:19 Temperature Pulse Rate 91 94 Respiratory Rate 14 14 Blood Pressure Pulse Oximetry 93 Oxygen Delivery Room Air Oxygen Flow Rate Fraction of Inspired Oxygen 10/25/24 20:00 10/26/24 02:34 10/26/24 02:34 Temperature Pulse Rate 82 Respiratory Rate 14 Blood Pressure Pulse Oximetry 100 98 Oxygen Delivery Room Air Nasal Cannula Oxygen Flow Rate 2 Fraction of Inspired Oxygen 10/26/24 02:40 10/26/24 03:35 10/26/24 07:18 Temperature 97.8 F Pulse Rate 80 83 Respiratory Rate 14 18 Blood Pressure 111/57 L Pulse Oximetry 100 93 Oxygen Delivery Room Air Oxygen Flow Rate Fraction of Inspired Oxygen 21 10/26/24 07:18 10/26/24 07:33 Temperature Pulse Rate 91 90 Respiratory Rate 18 18 Blood Pressure Pulse Oximetry Oxygen Delivery Oxygen Flow Rate Fraction of Inspired Oxygen Intake/Output Intake/Output: Intake & Output 10/23/24 10/24/24 10/25/24 10/26/24 23:59 23:59 23:59 23:59 Intake Total 1380 1850 1470 50 Output Total 550 2600 1865 800 Balance 900 -293 -367 -144 Meds/Results Medications: Active Medications Generic Name Dose Route Start Last Admin Trade Name Freq PRN Reason Stop Dose Admin Acyclovir 400 mg 10/23/24 09:00 10/26/24 08:01 Acyclovir 400 Mg Tablet PO Not Given TID ROSA MARIA Albuterol/Ipratropium 3 ml 10/23/24 08:00 10/26/24 07:18 Ipratropium 0.5 Mg/Albuterol Sulfate 2.5 Mg Ampul.Neb 3 Ml INHALATION 3 ml Q6HRT ROSA MARIA Administration Atorvastatin Calcium 40 mg 10/23/24 21:00 10/25/24 20:28 Atorvastatin 40 Mg Tablet PO 40 mg HS ROSA MARIA Administration Azithromycin 250 mg 10/24/24 09:00 10/26/24 08:01 Azithromycin 250 Mg Tablet PO 10/27/24 09:01 Not Given DAILY ROSA MARIA Clopidogrel Bisulfate 75 mg 10/23/24 09:00 10/26/24 08:01 Clopidogrel Bisulfate 75 Mg Tablet PO Not Given DAILY ROSA MARIA Cyanocobalamin 1,000 mcg 10/23/24 09:00 10/26/24 08:01 Cyanocobalamin 1,000 Mcg Tablet PO Not Given DAILY ROSA MARIA Dextrose 12.5 gm 10/23/24 08:01 Dextrose 50% 25 Gm/50 Ml Syringe IV PUSH PRN PRN Hypoglycemia Protocol Empagliflozin 10 mg 10/23/24 09:00 10/26/24 08:01 Empagliflozin 10 Mg Tablet PO Not Given DAILY ORSA MARIA Fish Oil 1 gm 10/23/24 09:00 10/26/24 08:02 Plain 3 Polyunsat Fatty Acids 1 Gm Cap PO Not Given DAILY ROSA MARIA Fluticasone/Umeclidinium/Vilanterol 1 puff 10/23/24 08:00 10/26/24 07:20 Fluticasone/Umeclidin/Vilanter 200-62.5-25 Mcg Ellipta INHALATION 1 puff DAILYRT [facility] Administration Gabapentin 300 mg 10/23/24 09:00 10/26/24 08:01 Gabapentin 300 Mg Capsule PO Not Given QID ROSA MARIA Glucagon 1 mg 10/23/24 08:01 Glucagon For Inj 1 Mg Vial IM PRN PRN Hypoglycemia Protocol Glucose 15 gm 10/23/24 08:01 Glucose Oral Gel 15 Gm Of Glucse In 37.5 Gm Tube PO PRN PRN Hypoglycemia Protocol Guaifenesin 600 mg 10/23/24 09:00 10/26/24 08:01 Guaifenesin 12 Hr 600 Mg Tabcr PO Not Given Q12HR ROSA MARIA Dextrose 1,000 mls @ 100 mls/hr 10/23/24 08:01 Dextrose 5% 1,000 Ml IVPB PRN PRN Hypoglycemia Protocol Cefepime HCl 1 gm in 50 mls @ 100 mls/hr 10/25/24 13:00 10/26/24 05:37 Maxipime 1 Gm/Ns 50 Ml IVPB Infused Q8HR [facility] Infusion Insulin Aspart 4 - 8 units 10/24/24 08:00 10/26/24 08:51 Insulin Aspart (*Bkc) 100 Units/Ml SUB-Q Not Given TIDWM ROSA MARIA Protocol Insulin Glargine 5 units 10/23/24 21:00 10/25/24 20:32 Insulin Glargine (*Bkc) 100 Units/Ml SUB-Q Not Given HS ROSA MARIA Insulin Glargine 12 units 10/25/24 21:00 10/25/24 20:31 Insulin Glargine (*Bkc) 100 Units/Ml 0.2 units/kg (12 units) 12 units SUB-Q Administration HS ROSA MARIA Melatonin 10 mg 10/23/24 22:55 10/25/24 20:29 Melatonin 5 Mg Tablet PO 10 mg HS PRN Administration Insomnia Metoprolol Succinate 12.5 mg 10/23/24 09:00 10/26/24 08:01 Metoprolol Succinate Ext Rel 12.5 Mg Tabcr PO Not Given DAILY ROSA MARIA Montelukast Sodium 10 mg 10/23/24 21:00 10/25/24 20:28 Montelukast Sodium 10 Mg Tablet PO 10 mg HS ROSA MARIA Administration Mycophenolate Mofetil 1,000 mg 10/23/24 09:00 10/26/24 08:02 Mycophenolate Mofetil 250 Mg Capsule PO Not Given Q12HR [facility] Nicotine 1 patch 10/23/24 09:00 10/25/24 09:15 Nicotine (*Pbkc) 21 Mg Patch TRANSDERM 1 patch DAILY ROSA MARIA Administration Ondansetron HCl 4 mg 10/23/24 03:12 Ondansetron Inj 4 Mg/2 Ml Vial IV PUSH Q4H PRN Nausea Pantoprazole Sodium 40 mg 10/23/24 09:00 10/26/24 08:02 Pantoprazole 40 Mg Tablet PO Not Given Q12HR ROSA MARIA Prednisone 40 mg 10/24/24 08:00 10/26/24 08:01 Prednisone 20 Mg Tablet PO Not Given DAILY@0800 [facility] Rivaroxaban 20 mg 10/23/24 17:00 10/23/24 16:11 Rivaroxaban 20 Mg Tablet PO 20 mg DAILY@1700 ROSA MARIA Administration Tacrolimus 0.5 mg 10/23/24 09:00 10/25/24 09:16 Tacrolimus 0.5 Mg Capsule PO 0.5 mg Q48HR ROSA MARIA Administration Vitamin D 2,000 units 10/23/24 09:00 10/26/24 08:01 Cholecalciferol 1,000 Units Tablet PO Not Given DAILY ROSA MARIA Voriconazole 200 mg 10/23/24 09:00 10/26/24 08:02 Voriconazole 200 Mg Tablet PO Not Given Q12HR ROSA MARIA Radiology Results: ITS Impressions Chest CT 10/23/24 06:04 Impression: Extensive irregular right apical consolidation with areas of cavitation versus bronchiectasis or possibly necrotic change are similar to prior exam. Multiple additional areas of irregular consolidation and/or nodularity throughout the lungs, largely stable from prior exam, but with focal worsening at the left lung base. Vascular fact chronic postinflammatory change with additional new infection or atelectasis or scarring at the left lung base. Clinical correlation advised. Underlying advanced emphysema. Chest X-Ray 10/23/24 06:15 Impression: No interval change. COPD with stable extensive right apical consolidation and scarring/pleural thickening. Additional focal airspace opacity peripheral right midlung. Stable mild interstitial prominence left lung base, nonspecific. Labs Labs: Laboratory Results - last 24 hr 10/25/24 10/25/24 10/25/24 08:50 12:06 17:06 WBC RBC Hgb Hct MCV MCH MCHC RDW Plt Count MPV Sodium Potassium Chloride Carbon Dioxide Anion Gap BUN Creatinine Estim Creat Clear Calc Estimated GFR Glucose POC Capillary Glucose 252 H 232 H 135 H Hemoglobin A1c Calcium Total Bilirubin AST ALT Alkaline Phosphatase Total Protein Albumin 10/25/24 10/26/24 19:58 05:19 WBC 18.5 H RBC 2.92 L Hgb 10.1 L Hct 30.9 L MCV 105.8 H MCH 34.6 H MCHC 32.7 RDW 14.5 Plt Count 378 H MPV 9.9 Sodium 137 Potassium 3.6 Chloride 102 Carbon Dioxide 30 Anion Gap 5 BUN 38 H Creatinine 0.80 Estim Creat Clear Calc 75 Estimated GFR > 60 Glucose 163 H POC Capillary Glucose 328 H Hemoglobin A1c 6.3 H Calcium 8.6 Total Bilirubin 0.4 AST 36 ALT 25 Alkaline Phosphatase 130 H Total Protein 7.0 Albumin 3.5 Quality VTE Prophylaxis VTE prophylaxis: pharmacologic ordered (Continue home Xarelto.) -Patient's previous records reviewed on admission -ER notes reviewed in detail on admission -discussed all findings and current treatment plan with patient/Family/POA -Consultations reviewed for recommendations -Patient's disposition for safe discharge discussed with bilingual patient support caseworker Dictation performed by [employer] direct speech recognition software, therefore dedicated regional driver variants and typographical errors may occur. Hospitalist [facility] Advance Care Plan I have confirmed that the patient's Advanced Care Plan is present, code status is documented, or surrogate decision maker is listed in patient medical record.: Yes Medication Reconciliation I have utilized all available resources to obtain, update and review the patients current medications (includes all prescriptions, OTC, herbals, cannabis, and nutritional supplements).: Yes The patient is not eligible for med reconciliation; the patient is in a emergent medical situation where delaying treatment would jeopardize the patients health.: No
[2024-10-26 09:01] LABS: Glucose Point of Care 193 mg/dl (65-105)
[2024-10-26] MEDS: NICOTINE (*PBKC) 21 MG PATCH 1 PATCH TRANSDERM (09:14)
[2024-10-26] MEDS: LACTATED RINGERS 1,000 ML 150 ML IV CONT (09:21)
--- NOTE | 2024-10-26 09:22 | PC.NURSE ---
Patient off of unit to GI lab
[2024-10-26 09:31] LABS: Glucose Point of Care 171 mg/dl (65-105)
--- NOTE | 2024-10-26 09:48 | WPDANESEPPF ---
Anes - Initial Pre Proc Eval Procedure: Operation Date: 10/26/24 12:30 Proposed Procedures p Esophagogastroduodenoscopy - Raymon Lambert MD Date/Time: 10/26/24 09:48 Surgeon: Fadia Willams APRN Pre Op Diagnosis: acute on chronic COPD exacerbations Patient Data Age: 58 Gender: M Height: 1.78 m Weight: 60.1 kg Last Vital Signs Temp 98.5 F 10/26/24 09:24 Pulse 90 10/26/24 09:24 Resp 20 10/26/24 09:24 BP 125/84 10/26/24 09:24 Pulse Ox 97 10/26/24 09:24 O2 Del Method Room Air 10/26/24 09:24 O2 Flow Rate 2 10/26/24 02:34 FiO2 21 10/26/24 07:18 Allergies Allergy/AdvReac Type Severity Reaction Status Date / Time adhesive tape AdvReac Unknown PAPER Verified 10/23/24 05:58 TAPE,REDNESS AND IRRITATION Home Medications Medication Instructions Recorded Confirmed Type rivaroxaban 20 mg tablet (Xarelto) 20 mg PO QAM 02/06/23 10/23/24 History acyclovir 400 mg tablet 400 mg PO TID #90 tabs 01/28/24 10/23/24 Rx clopidogrel 75 mg tablet 75 mg PO DAILY #90 tabs 01/28/24 10/23/24 Rx insulin lispro 100 unit/mL 5 - 10 unit (0.05 - 0.1 mL) subcut 01/28/24 10/23/24 Rx subcutaneous pen (Humalog KwikPen TIDWM #15 mL (U-100) Insulin) montelukast 10 mg tablet 10 mg PO HS #30 tabs 01/28/24 10/23/24 Rx (Singulair) mycophenolate mofetil 500 mg tablet 1,000 mg PO Q12H #10 tabs 01/28/24 10/23/24 Rx tacrolimus 0.5 mg capsule, 0.5 mg PO EVERY OTHER DAY #30 caps 01/28/24 10/23/24 Rx immediate-release (Prograf) gabapentin 300 mg capsule 300 mg PO QID 07/22/24 10/23/24 History (Neurontin) albuterol sulfate 2.5 mg/3 mL 2.5 mg inhalation Q6H PRN 10/23/24 10/23/24 History (0.083 %) solution for nebulization Shortness Of Breath albuterol sulfate 90 mcg/actuation 1 puff inhalation Q4-6H PRN 10/23/24 10/23/24 History aerosol inhaler Shortness Of Breath Or Wheezing atorvastatin 40 mg tablet (Lipitor) 40 mg PO HS 10/23/24 10/23/24 History cholecalciferol (vitamin D3) 25 50 mcg PO DAILY 10/23/24 10/23/24 History mcg (1,000 unit) tablet clofazimine 50 mg capsule 100 mg PO DAILY 10/23/24 10/23/24 History cyanocobalamin (vitamin B-12) 1,000 mcg PO DAILY 10/23/24 10/23/24 History 1,000 mcg tablet empagliflozin 10 mg tablet 10 mg PO DAILY 10/23/24 10/23/24 History (Jardiance) fluticasone fur. 200 mcg-umeclid 1 inh inhalation DAILY 10/23/24 10/23/24 History 62.5 mcg-vilant 25 mcg inhalat.powder (Trelegy Ellipta) guaifenesin 600 mg tablet, 600 mg PO Q12H 10/23/24 10/23/24 History extended release 12 hr (Mucinex) metoprolol succinate 25 mg 12.5 mg PO DAILY 10/23/24 10/23/24 History tablet,extended release 24 hr nicotine 21 mg/24 hr daily 1 patch transdermal DAILY 10/23/24 10/23/24 History transdermal patch omega-3 acid ethyl esters 1 gram 1 cap PO DAILY 10/23/24 10/23/24 History capsule (Lovaza) ondansetron 4 mg disintegrating 4 mg PO Q8H PRN Nausea And Vomiting 10/23/24 10/23/24 History tablet pantoprazole 40 mg tablet,delayed 40 mg PO Q12H 10/23/24 10/23/24 History release voriconazole 200 mg tablet 200 mg PO Q12H 10/23/24 10/23/24 History Laboratory Tests 10/25/24 10/25/24 10/25/24 12:06 17:06 19:58 WBC RBC Hgb Hct MCV MCH MCHC RDW Plt Count MPV Sodium Potassium Chloride Carbon Dioxide Anion Gap BUN Creatinine Estim Creat Clear Calc Estimated GFR Glucose POC Capillary Glucose 232 H mg/dl 135 H mg/dl 328 H mg/dl (65-105) (65-105) (65-105) Hemoglobin A1c Calcium Total Bilirubin AST ALT Alkaline Phosphatase Total Protein Albumin 10/26/24 10/26/24 10/26/24 05:19 08:45 09:27 WBC 18.5 H K/mm3 (4.5-10.0) RBC 2.92 L M/mm3 (4.6-6.20) Hgb 10.1 L g/dL (14.0-18.0) Hct 30.9 L % (42.0-52.0) MCV 105.8 H fl (80-100) MCH 34.6 H pg (26-34) MCHC 32.7 g/dl (32-36) RDW 14.5 % (11.5-14.5) Plt Count 378 H k/mm3 (150-375) MPV 9.9 fl (7.4-10.4) Sodium 137 mmol/L (137-145) Potassium 3.6 mmol/L (3.4-5.0) Chloride 102 mmol/L (98-107) Carbon Dioxide 30 mmol/L (22-30) Anion Gap 5 mmol/L (4-12) BUN 38 H mg/dL (9-20) Creatinine 0.80 mg/dL (0.7-1.3) Estim Creat Clear Calc 75 ml/min Estimated GFR > 60 (59 - ) Glucose 163 H mg/dL (65-110) POC Capillary Glucose 193 H mg/dl 171 H mg/dl (65-105) (65-105) Hemoglobin A1c 6.3 H % (<5.7) Calcium 8.6 mg/dL (8.4-10.2) Total Bilirubin 0.4 mg/dL (0.2-1.3) AST 36 U/L (17-59) ALT 25 U/L (6-50) Alkaline Phosphatase 130 H U/L (38-126) Total Protein 7.0 g/dL (6.3-8.2) Albumin 3.5 g/dL (3.5-5.1) Patient hx anesthesia problems: none Family hx anesthesia problems: none Results Review: All pre-operative results and documents have been reviewed as part of the pre-operative evaluation. 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 Anxiety CAD (coronary artery disease) Chronic anticoagulation Chronic obstructive pulmonary disease Chronic respiratory failure with hypoxia On 5 liters nasal cannula at nighttime. Deep venous thrombosis Depression Eczema Emphysema/COPD Hyperglycemia Hyperlipidemia Immunocompromised patient Patient on anti rejection medications. 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 Peripheral neuropathy Peyronie's disease Peyronie's disease Positive nasal culture for methicillin resistant Staphylococcus aureus Pulmonary emboli Sciatica ST elevation (STEMI) myocardial infarction (12/30/22) Surgical History Surgical History History of heart artery stent 12/30/2022 100% occlusion mid RCA with drug-eluting stent, left coronary system with [id number] disease History of orthopedic surgery Left tibia liz placement History of stem cell transplant Status post cataract extraction of both eyes with insertion of intraocular lens Family History Family History Mother Acute myocardial infarction, Onset Age: 42 Father COPD (chronic obstructive pulmonary disease) Diabetes mellitus Alcohol abuse Social History Social History Social History: Surrogate medical decision maker: Lissy Kaiser, friend/roommate. Code status: Full code. Years smoked: 44 Smoking status: Current some day smoker Tobacco type: cigarettes Smoking end date: 08/07/22 Additional smoking assessment comments: on nicotine patches, states he is currently on patches Alcohol intake: never Substance use: never Substance use type: does not use Do You Feel Safe in your Home?: Yes Lack of Transportation: No Lack of Food: Never True Current Housing: I Have Housing Concerned About Future Housing: No Difficulty Paying Gas/Electric Bills: YES Difficulty Paying for Meds: No Currently Unemployed: No Education: High School Diploma/GED Difficulty w/ Childcare or Family Care: No Living arrangements: with friend(s) Additional living arrangements comments: He lives with his roommate in [place]. Occupation/Education: unemployed Spiritual care concerns: No Agree to blood products: Yes Anes - Eval Final PreProcedure Day of Procedure 10/26/24 09:48 Patient weight: normal Heart: regular rate and rhythm Lungs: clear to auscultation Airway: Mallampati scale class III Neurological: alert and oriented Last oral intake: >/= 8 hours ASA classification: IV Emergent: no Anesthetic plan: proceed Anesthesia type and monitoring: general GIVS and standard monitoring Results Review: All pre-operative results and documents have been reviewed as part of the pre-operative evaluation. Informed Consent: The patient's anesthetic plan and its attendant risks and benefits were discussed with the patient/family/POA. Questions were solicited and answers provided to the satisfaction of the patient/family/POA.
--- NOTE | 2024-10-26 10:00 | S_PTH ---
PATIENT: Brady Jones LOC: [id number] U#:[id number] AGE/SX: 59/M ROOM: 342 RE10/25/[address]: Kimberly Santa APRN : 1965 BED: 01 DIS: 10/30/2024 SPEC #: [id number] RECD: 10/26/24 10:52 STATUS: MIHAELA REQ #: [id number] BEREKET: 10/26/24 10:[address]: Raymon Lambert DEPT: [facility] Surgical RECD BY: Carmen Kaiser ENTERED: 10/26/24 10:52 SP TYPE: Surgical OTHR DR: ARJUN Fay DO David B. Yablonsky, DO Tissues: A - Esophageal Biopsy Procedures: Hematoxylin and Eosin Stain Gross and Microscopic Level 4
[2024-10-26 10:23] LABS: Glucose Point of Care 160 mg/dl (65-105)
[2024-10-26 12:18] LABS: Glucose Point of Care 173 mg/dl (65-105)
[2024-10-26] MEDS: GABAPENTIN 300 MG CAPSULE PO ×3 (15:10→20:18)
[2024-10-26] MEDS: ACYCLOVIR 400 MG TABLET PO ×2 (15:10→18:09)
[2024-10-26] MEDS: CEFEPIME 2 GM/NS 50 ML 2 GM/50 ML BAG IVPB ×2 (15:10→20:25)
[2024-10-26 17:47] LABS: Glucose Point of Care 198 mg/dl (65-105)
[2024-10-26] MEDS: SUCRALFATE SUSP 100 MG/ML 10 ML UDC 1000 MG PO ×2 (18:09→20:16)
[2024-10-26] MEDS: RIVAROXABAN 20 MG TABLET PO (18:09)
[2024-10-26] MEDS: mycophenolate mofetiL 250 MG CAPSULE 1000 MG PO (20:16)
[2024-10-26] MEDS: MONTELUKAST SODIUM 10 MG TABLET PO (20:17)
[2024-10-26] MEDS: PANTOPRAZOLE 40 MG TABLET PO (20:18)
[2024-10-26] MEDS: MELATONIN 5 MG TABLET 10 MG PO (20:18)
[2024-10-26] MEDS: ATORVASTATIN 40 MG TABLET PO (20:18)
[2024-10-26] MEDS: guaiFENesin 12 HR 600 MG TABCR PO (20:18)
[2024-10-26] MEDS: VORICONAZOLE 200 MG TABLET PO (20:18)
[2024-10-26] MEDS: INSULIN GLARGINE (*BKC) 100 UNITS/ML 12 UNITS SUB-Q (20:19)
[2024-10-26 21:06] LABS: Glucose Point of Care 184 mg/dl (65-105)
[2024-10-27] VITALS (12 sets, daily range): BP systolic 115–121; BP diastolic 72–84; PULSE 85–105; RESP 18–20; TEMP 36.6–37.1; O2SAT 94–100
[2024-10-27] MEDS: IPRATROPIUM 0.5 MG/ALBUTEROL SULFATE 2.5 MG AMPUL.NEB 3 ML INHALATION ×4 (01:28→19:15)
[2024-10-27] MEDS: SUCRALFATE SUSP 100 MG/ML 10 ML UDC 1000 MG PO ×4 (05:59→20:53)
[2024-10-27] MEDS: CEFEPIME 2 GM/NS 50 ML 2 GM/50 ML BAG IVPB ×3 (05:59→21:11)
[2024-10-27 07:27] LABS: Hematocrit 35.5 % (42.0-52.0); Hemoglobin 11.6 g/dL (14.0-18.0); Mean Corpuscular HGB Conc 32.7 g/dl (32-36); Mean Corpuscular Hemoglobin 34.6 pg (26-34); Mean Platelet Volume 10.5 fl (7.4-10.4); Platelet Count Result 418 k/mm3 (150-375); Red Blood Count 3.35 M/mm3 (4.6-6.20); Red Cell Distribution Width 14.4 % (11.5-14.5); White Blood Count 16.5 K/mm3 (4.5-10.0)
[2024-10-27 08:16] LABS: Glucose Point of Care 113 mg/dl (65-105)
[2024-10-27 09:46] LABS: Alanine Aminotransferase 25 U/L (6-50); Albumin Level 3.7 g/dL (3.5-5.1); Alkaline Phosphatase 117 U/L (38-126); Anion Gap 4 mmol/L (4-12); Aspartate Amino Transferase 37 U/L (17-59); Bilirubin,Total 0.5 mg/dL (0.2-1.3); Blood Urea Nitrogen 30 mg/dL (9-20); Calcium 8.6 mg/dL (8.4-10.2); Carbon Dioxide 31 mmol/L (22-30); Chloride 102 mmol/L (98-107); Estimated CRCL calculation 84 ml/min; Estimated Glomerular Filt Rate > 60; Glucose 58 mg/dL (65-110); Potassium 3.9 mmol/L (3.4-5.0); Sodium 137 mmol/L (137-145)
[2024-10-27] MEDS: guaiFENesin 12 HR 600 MG TABCR PO ×2 (10:03→20:54)
[2024-10-27] MEDS: NICOTINE (*PBKC) 21 MG PATCH 1 PATCH TRANSDERM (10:03)
[2024-10-27] MEDS: AZITHROMYCIN 250 MG TABLET PO (10:03)
[2024-10-27] MEDS: mycophenolate mofetiL 250 MG CAPSULE 1000 MG PO ×2 (10:03→20:53)
[2024-10-27] MEDS: CYANOCOBALAMIN 1,000 MCG TABLET 1000 MCG PO (10:04)
[2024-10-27] MEDS: TACROLIMUS 0.5 MG CAPSULE PO (10:04)
[2024-10-27] MEDS: OMEGA 3 POLYUNSAT FATTY ACIDS 1 GM CAP PO (10:04)
[2024-10-27] MEDS: VORICONAZOLE 200 MG TABLET PO ×2 (10:04→20:54)
[2024-10-27] MEDS: PANTOPRAZOLE 40 MG TABLET PO ×2 (10:04→20:54)
[2024-10-27] MEDS: ACYCLOVIR 400 MG TABLET PO ×3 (10:04→17:45)
[2024-10-27] MEDS: GABAPENTIN 300 MG CAPSULE PO ×4 (10:04→20:54)
[2024-10-27] MEDS: predniSONE 20 MG TABLET 40 MG PO (10:04)
[2024-10-27] MEDS: CHOLECALCIFEROL 1,000 UNITS TABLET 2000 UNITS PO (10:04)
[2024-10-27] MEDS: EMPAGLIFLOZIN 10 MG TABLET PO (10:04)
[2024-10-27] MEDS: CLOPIDOGREL BISULFATE 75 MG TABLET PO (10:05)
[2024-10-27] MEDS: METOPROLOL SUCCINATE EXT REL 12.5 MG TABCR PO (10:05)
[2024-10-27 11:58] LABS: Glucose Point of Care 135 mg/dl (65-105)
--- NOTE | 2024-10-27 13:00 | P.PNIM_ITS ---
Progress Note: A&P Assessment and Plan (1) Pseudomonas pneumonia: Code(s): J15.1 - Pneumonia due to Pseudomonas Status: Acute Assessment and Plan: Patient last treated at [facility] of cavitary lesions and refractory infection was positive for Mycobacterium avium and stenotrophomonas patient received IV azithromycin, FM albuterol and Amikacin last sputum here at [place] grew Pseudomonas resistant to Levaquin 07/23/2024 time of transfer was never treated for a Pseudomonas at [place] * WBC bumped from 4.4 to 27.1 overnight * has been on azithromycin and Rocephin * transitioned his steroids to p.o. 40 days in case reactive * Stat repeat CBC * Follow-up CBC in the a.m. * Last sputum culture in 07/2024 Pseudomonas resistant to Levaquin likely colonized previous sputum 12/2023 Pseudomonas but will treat for acute infection 10/25/2024: * added IV cefepime based on previous sputum of Pseudomonas resistant to Levaquin * CT with Vascular fact chronic postinflammatory change with additional new infection or atelectasis * Sputum culture pending * WBC 22 10/26/2024: * WBC trending down * sputum pending * continue cefepime pending culture (2) COPD exacerbation: Code(s): J44.1 - Chronic obstructive pulmonary disease with (acute) exacerbation Status: Acute Assessment and Plan: Patient states he had been out of his inhalers and nebulizers for the last 2 weeks has had increased worsening shortness of breath patient is still currently smoking * Bronchodilators. * Chest x-ray/Chest CT reviewed stable from previous * incentive spirometry while awake. * steroids initiated transitioned to PO * azithromycin 500 x 1 day/250 daily/Rocephin * supplemental oxygen therapy to maintain oxygen 92%/Wears 3L NC at home * Smoking cessation counseling done * Follow-up with [facility] as an outpatient (3) Acute on chronic respiratory failure with hypoxia and hypercapnia: Code(s): J96.21 - Acute and chronic respiratory failure with hypoxia; J96.22 - Acute and chronic respiratory failure with hypercapnia Status: Acute Assessment and Plan: Patient last treated at [facility] of cavitary lesions and refractory infection was positive for Mycobacterium avium and stenotrophomonas patient received IV azithromycin, FM albuterol and Amikacin last sputum here at [place] grew Pseu domonas resistant to Levaquin 07/23/2024 time of transfer * follow-up CT cavitation lesion similar to prior exam but did show focal worsening of the left lung base could be post inflammatory change or possible new infection * WBC peaked at 27 * started on azithromycin and cefepime based off previous culture of Pseudomonas * Likely secondary to COPD exacerbation * weaned 02 to 3L home oxygen * Bipap Prn * Encourage smoking cessation (4) Dysphagia: Code(s): R13.10 - Dysphagia, unspecified Status: Acute Assessment and Plan: * Patient reports food getting stuck and he has to really regurgitate at times * Has weight loss in loss 2 months * Has had previous difficulties states he believes he had an EGD but did not results a few years ago * GI was consulted * Plan for EGD 10/26 evaluate for any esophageal strictures, mass, esophagitis * Soft diet 10/25/2024: * NPO at midnight 10/26/2024 * EGD today 10/27/24: * EGD report shows severe gastritis * continue with PPI * added Carafate (5) Type 2 diabetes mellitus with hyperglycemia, with long-term current use of insulin: Code(s): E11.65 - Type 2 diabetes mellitus with hyperglycemia; Z79.4 - detention (current) use of insulin Status: Acute Assessment and Plan: * Accu-Cheks a.c. 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 (7) Malnutrition of moderate degree: Code(s): E44.0 - Moderate protein-calorie malnutrition Status: Acute Assessment and Plan: * Dietitian consulted * Likely secondary to patient's dysphagia and recent hospitalizations * Add dietary supplements Plan Code status: Full code per patient DVT prophylaxis: Xarelto Stress ulcer prophylaxis: Protonix 40 daily PT/OT notes: Ambulatory Disposition: Patient continues admission to medical unit for acute on chronic respiratory failure with hypoxia will treat for possible new infection of the left lung base as well as dysphagia plan for EGD Friday 10/26 patient has been weaned back to his 3 L supplemental home oxygen. Treating for possible pneumonia Pseudomonas with cefepime pending sputum culture He is ambulatory own and plan is return home at discharge. can likely discharge home on oral Cipro pending sputum Time Spent With Patient Time with patient: 15 - 25 minutes Subjective Date/time seen: 10/27/24 13:00 Interval history: Patient is a 58-year-old male who was admitted to IMU initially for acute on chronic respiratory failure with hypoxia who required BiPAP on admission wears chronic supplemental oxygen at home. 10/27/2024: Patient doing well today states breathing has improved and he is swallowing easier with the addition of the Carafate. Denied any CP, Fever, chills, N/V but still with productive cough. Review of Systems Review of Systems: 12 systems were reviewed with pertinent positives and negatives per HPI. Except as documented in the HPI, all other systems were reviewed and are negative. All systems reviewed & are unremarkable except as noted in HPI and below Exam Narrative: Weight 57 kg BMI 17.5 Const: Other: Chronically ill-appearing, thin body habitus, no acute distress, appears much older than stated age HENMT: Other: Mucous membranes are moist, edentulous in upper and lower jaw, head is normocephalic atraumatic Eyes: Other: Positive conjunctival pallor, no scleral icterus Neck: Other: No JVD, no thyromegaly, supple Resp: Other: Decreased breath sounds bilateral posterior lung leger, faint expiratory wheezing anterior leger Cardio: Other: Mildly tachycardic, regular rhythm, 2+ bilateral radial pedal pulses, no murmur GI: Other: Soft, nontender, nondistended, positive bowel sounds Back/Spine/Pelvis: Other: Normal alignment, no crepitus Skin: Other: Generalized pallor, non jaundice Neuro: Other: Alert oriented x4, speech is clear, no facial asymmetry, moves all extremities equally, no localizing neurologic deficits noted during the course of conversation Extrem: Other: No cyanosis, no edema, staining to the fingernails that her overgrown on both hands Psych: Other: Appropriate mood and affect, pleasant and cooperative, fair judgment and insight Objective Data Vital Signs Vital Signs: Vital Signs - 24 hr 10/26/24 14:00 10/26/24 14:03 10/26/24 14:12 Temperature 97.2 F L Pulse Rate 52 L 87 86 Respiratory Rate 18 18 18 Blood Pressure 138/78 Pulse Oximetry 92 Oxygen Delivery Fraction of Inspired Oxygen 10/26/24 19:48 10/26/24 20:00 10/26/24 20:05 Temperature 97.7 F Pulse Rate 89 95 Respiratory Rate 18 Blood Pressure 146/88 H Pulse Oximetry 100 100 98 Oxygen Delivery Room Air Room Air Fraction of Inspired Oxygen 10/26/24 20:05 10/26/24 20:16 10/27/24 01:29 Temperature Pulse Rate 95 95 92 Respiratory Rate 20 20 20 Blood Pressure Pulse Oximetry Oxygen Delivery Fraction of Inspired Oxygen 10/27/24 01:39 10/27/24 07:19 10/27/24 07:19 Temperature Pulse Rate 95 96 Respiratory Rate 20 20 Blood Pressure Pulse Oximetry 94 Oxygen Delivery Room Air Fraction of Inspired Oxygen 21 10/27/24 07:28 10/27/24 10:04 10/27/24 10:05 Temperature Pulse Rate 94 105 H Respiratory Rate 20 Blood Pressure Pulse Oximetry Oxygen Delivery Room Air Fraction of Inspired Oxygen Intake/Output Intake/Output: Intake & Output 10/24/24 10/25/24 10/26/24 10/27/24 23:59 23:59 23:59 23:59 Intake Total 1850 1470 1420 530 Output Total 2600 1865 2450 Balance -578 -129 -1841 530 Meds/Results Medications: Active Medications Generic Name Dose Route Start Last Admin Trade Name Freq PRN Reason Stop Dose Admin Acyclovir 400 mg 10/23/24 09:00 10/27/24 10:04 Acyclovir 400 Mg Tablet PO 400 mg TID ROSA MARIA Administration Albuterol/Ipratropium 3 ml 10/23/24 08:00 10/27/24 07:16 Ipratropium 0.5 Mg/Albuterol Sulfate 2.5 Mg Ampul.Neb 3 Ml INHALATION 3 ml Q6HRT ROSA MARIA Administration Atorvastatin Calcium 40 mg 10/23/24 21:00 10/26/24 20:18 Atorvastatin 40 Mg Tablet PO 40 mg HS ROSA MARIA Administration Clopidogrel Bisulfate 75 mg 10/23/24 09:00 10/27/24 10:05 Clopidogrel Bisulfate 75 Mg Tablet PO 75 mg DAILY ROSA MARIA Administration Cyanocobalamin 1,000 mcg 10/23/24 09:00 10/27/24 10:04 Cyanocobalamin 1,000 Mcg Tablet PO 1,000 mcg DAILY ROSA MARIA Administration Dextrose 12.5 gm 10/23/24 08:01 Dextrose 50% 25 Gm/50 Ml Syringe IV PUSH PRN PRN Hypoglycemia Protocol Empagliflozin 10 mg 10/23/24 09:00 10/27/24 10:04 Empagliflozin 10 Mg Tablet PO 10 mg DAILY ROSA MARIA Administration Fish Oil 1 gm 10/23/24 09:00 10/27/24 10:04 [place] 3 Polyunsat Fatty Acids 1 Gm Cap PO 1 gm DAILY ROSA MARIA Administration Fluticasone/Umeclidinium/Vilanterol 1 puff 10/23/24 08:00 10/26/24 07:20 Fluticasone/Umeclidin/Vilanter 200-62.5-25 Mcg Ellipta INHALATION 1 puff DAILYRT ROSA MARIA Administration Gabapentin 300 mg 10/23/24 09:00 10/27/24 10:04 Gabapentin 300 Mg Capsule PO 300 mg QID ROSA MARIA Administration Glucagon 1 mg 10/23/24 08:01 Glucagon For Inj 1 Mg Vial IM PRN PRN Hypoglycemia Protocol Glucose 15 gm 10/23/24 08:01 Glucose Oral Gel 15 Gm Of Glucse In 37.5 Gm Tube PO PRN PRN Hypoglycemia Protocol Guaifenesin 600 mg 10/23/24 09:00 10/27/24 10:03 Guaifenesin 12 Hr 600 Mg Tabcr PO 600 mg Q12HR ROSA MARIA Administration Dextrose 1,000 mls @ 100 mls/hr 10/23/24 08:01 Dextrose 5% 1,000 Ml IVPB PRN PRN Hypoglycemia Protocol Cefepime HCl 2 gm in 50 mls @ 100 mls/hr 10/26/24 14:00 10/27/24 07:16 Maxipime 2 Gm/Ns 50 Ml IVPB Infused Q8HR ROSA MARIA Infusion Insulin Aspart 4 - 8 units 10/24/24 08:00 10/27/24 12:00 Insulin Aspart (*Bkc) 100 Units/Ml SUB-Q Not Given TIDWM [facility] Protocol Insulin Glargine 5 units 10/23/24 21:00 10/26/24 20:19 Insulin Glargine (*Bkc) 100 Units/Ml SUB-Q Not Given HS ROSA MARIA Insulin Glargine 12 units 10/25/24 21:00 10/26/24 20:19 Insulin Glargine (*Bkc) 100 Units/Ml 0.2 units/kg (12 units) 12 units SUB-Q Administration HS ROSA MARIA Melatonin 10 mg 10/23/24 22:55 10/26/24 20:18 Melatonin 5 Mg Tablet PO 10 mg HS PRN Administration Insomnia Metoprolol Succinate 12.5 mg 10/23/24 09:00 10/27/24 10:05 Metoprolol Succinate Ext Rel 12.5 Mg Tabcr PO 12.5 mg DAILY ROSA MARIA Administration Montelukast Sodium 10 mg 10/23/24 21:00 10/26/24 20:17 Montelukast Sodium 10 Mg Tablet PO 10 mg HS ROSA MARIA Administration Mycophenolate Mofetil 1,000 mg 10/23/24 09:00 10/27/24 10:03 Mycophenolate Mofetil 250 Mg Capsule PO 1,000 mg Q12HR ROSA MARIA Administration Nicotine 1 patch 10/23/24 09:00 10/27/24 10:03 Nicotine (*Pbkc) 21 Mg Patch TRANSDERM 1 patch DAILY ROSA MARIA Administration Ondansetron HCl 4 mg 10/23/24 03:12 Ondansetron Inj 4 Mg/2 Ml Vial IV PUSH Q4H PRN Nausea Pantoprazole Sodium 40 mg 10/23/24 09:00 10/27/24 10:04 Pantoprazole 40 Mg Tablet PO 40 mg Q12HR ROSA MARIA Administration Prednisone 40 mg 10/24/24 08:00 10/27/24 10:04 Prednisone 20 Mg Tablet PO 40 mg DAILY@0800 ROSA MARIA Administration Rivaroxaban 20 mg 10/23/24 17:00 10/26/24 18:09 Rivaroxaban 20 Mg Tablet PO 20 mg DAILY@1700 ROSA MARIA Administration Sucralfate 1,000 mg 10/26/24 16:30 10/27/24 10:09 Sucralfate Susp 100 Mg/Ml 10 Ml Udc PO 1,000 mg ACHS ROSA MARIA Administration Tacrolimus 0.5 mg 10/23/24 09:00 10/27/24 10:04 Tacrolimus 0.5 Mg Capsule PO 0.5 mg Q48HR ROSA MARIA Administration Vitamin D 2,000 units 10/23/24 09:00 10/27/24 10:04 Cholecalciferol 1,000 Units Tablet PO 2,000 units DAILY ROSA MARIA Administration Voriconazole 200 mg 10/23/24 09:00 10/27/24 10:04 Voriconazole 200 Mg Tablet PO 200 mg Q12HR ROSA MARIA Administration Radiology Results: ITS Impressions Chest CT 10/23/24 06:04 Impression: Extensive irregular right apical consolidation with areas of cavitation versus bronchiectasis or possibly necrotic change are similar to prior exam. Multiple additional areas of irregular consolidation and/or nodularity t hroughout the lungs, largely stable from prior exam, but with focal worsening at the left lung base. Vascular fact chronic postinflammatory change with additional new infection or atelectasis or scarring at the left lung base. Clinical correlation advised. Underlying advanced emphysema. Chest X-Ray 10/23/24 06:15 Impression: No interval change. COPD with stable extensive right apical consolidation and scarring/pleural thickening. Additional focal airspace opacity peripheral right midlung. Stable mild interstitial prominence left lung base, nonspecific. Labs Labs: Laboratory Results - last 24 hr 10/26/24 10/26/24 10/27/24 17:41 19:50 05:33 WBC 16.5 H RBC 3.35 L Hgb 11.6 L Hct 35.5 L MCV 106.0 H MCH 34.6 H MCHC 32.7 RDW 14.4 Plt Count 418 H MPV 10.5 H Sodium 137 Potassium 3.9 Chloride 102 Carbon Dioxide 31 H Anion Gap 4 BUN 30 H Creatinine 0.70 Estim Creat Clear Calc 84 Estimated GFR > 60 Glucose 58 L* POC Capillary Glucose 198 H 184 H Calcium 8.6 Total Bilirubin 0.5 AST 37 ALT 25 Alkaline Phosphatase 117 Total Protein 7.0 Albumin 3.7 10/27/24 10/27/24 08:14 11:53 WBC RBC Hgb Hct MCV MCH MCHC RDW Plt Count MPV Sodium Potassium Chloride Carbon Dioxide Anion Gap BUN Creatinine Estim Creat Clear Calc Estimated GFR Glucose POC Capillary Glucose 113 H 135 H Calcium Total Bilirubin AST ALT Alkaline Phosphatase Total Protein Albumin Quality VTE Prophylaxis VTE prophylaxis: pharmacologic ordered (Continue home Xarelto.) -Patient's previous records reviewed on admission -ER notes reviewed in detail on admission -discussed all findings and current treatment plan with patient/Family/POA -Consultations reviewed for recommendations -Patient's disposition for safe discharge discussed with case planner Dictation performed by [employer] direct speech recognition software, therefore production manager variants and typographical errors may occur. Hospitalist MIPS Advance Care Plan I have confirmed that the patient's Advanced Care Plan is present, code status is documented, or surrogate decision maker is listed in patient medical record.: Yes Medication Reconciliation I have utilized all available resources to obtain, update and review the patients current medications (includes all prescriptions, OTC, herbals, cannabis , and nutritional supplements).: Yes The patient is not eligible for med reconciliation; the patient is in a emergent medical situation where delaying treatment would jeopardize the patients health.: No
--- NOTE | 2024-10-27 13:50 | WPDANESPN ---
Anes - Prog Note Post-Op Date/Time: 10/27/24 13:50 Cardiovascular status: normal Respiratory status: normal Airway patency: baseline Mental status: baseline Post-Op hydration status: normal Vital Signs: Last Vital Signs Temp 97.7 F 10/26/24 19:48 Pulse 105 H 10/27/24 10:05 Resp 20 10/27/24 07:28 BP 146/88 H 10/26/24 19:48 Pulse Ox 94 10/27/24 07:19 O2 Del Method Room Air 10/27/24 10:04 O2 Flow Rate 2 10/26/24 02:34 FiO2 21 10/27/24 07:19 Pain Score (VAS): 0/10 I/O: Intake & Output 10/26/24 10/27/24 10/27/24 23:59 07:59 15:59 Intake Total 680 50 530 Output Total 400 Balance 280 50 530 Laboratory Tests 10/27/24 05:33 10/27/24 05:33 10/26/24 10/26/24 10/27/24 17:41 19:50 05:33 WBC 16.5 H RBC 3.35 L Hgb 11.6 L Hct 35.5 L MCV 106.0 H MCH 34.6 H MCHC 32.7 RDW 14.4 Plt Count 418 H MPV 10.5 H Sodium 137 Potassium 3.9 Chloride 102 Carbon Dioxide 31 H Anion Gap 4 BUN 30 H Creatinine 0.70 Estim Creat Clear Calc 84 Estimated GFR > 60 Glucose 58 L* POC Capillary Glucose 198 H 184 H Calcium 8.6 Total Bilirubin 0.5 AST 37 ALT 25 Alkaline Phosphatase 117 Total Protein 7.0 Albumin 3.7 10/27/24 10/27/24 08:14 11:53 WBC RBC Hgb Hct MCV MCH MCHC RDW Plt Count MPV Sodium Potassium Chloride Carbon Dioxide Anion Gap BUN Creatinine Estim Creat Clear Calc Estimated GFR Glucose POC Capillary Glucose 113 H 135 H Calcium Total Bilirubin AST ALT Alkaline Phosphatase Total Protein Albumin Microbiology 10/25/24 21:00 Sputum Sputum Culture - Preliminary Post-procedural complaints: none Patient Feedback: Patient satisfied with anesthetic care.
[2024-10-27 16:55] LABS: Glucose Point of Care 258 mg/dl (65-105)
--- NOTE | 2024-10-27 17:00 | WPDGIPROGNO ---
Progress Note: A&P Assessment and Plan (1) Dysphagia: Code(s): R13.10 - Dysphagia, unspecified Status: Acute Assessment and Plan: egd c/w pill esophagitis- confirmed with bx ppi daily he is eating will follow as needed (2) Pill esophagitis: Code(s): K20.80 - Other esophagitis without bleeding; T50.755Z - Adverse effect of unspecified drugs, medicaments and biological substances, initial encounter Status: Acute (3) Chronic anticoagulation: Code(s): Z79.01 - manager intermediate (current) use of 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 Status: Acute Assessment and Plan: ok to resume blood thinners (4) Hypertension: Qualifiers: Hypertension type: primary hypertension Qualified Code(s): I10 - Essential (primary) hypertension Code(s): I10 - Essential (primary) hypertension Status: Acute (5) Acute on chronic respiratory failure with hypoxia and hypercapnia: Code(s): J96.21 - Acute and chronic respiratory failure with hypoxia; J96.22 - Acute and chronic respiratory failure with hypercapnia Status: Acute (6) COPD exacerbation: Code(s): J44.1 - Chronic obstructive pulmonary disease with (acute) exacerbation Status: Acute Subjective Date/time seen: 10/27/24 17:00 Interval history: eating better egd c/w pill esophagitis, no stricture Review of Systems Review of Systems: All systems reviewed & are unremarkable except as noted in HPI and below Exam Const: Other: Chronically ill-appearing, thin body habitus, no acute distress good spirits HENMT: Face/Nose/Sinus: Normal nares present Eyes: Other: Positive conjunctival pallor, no scleral icterus Neck: Neck: no JVD Resp: Auscultation: no wheezes Cardio: Rhythm: regular rhythm GI: GI Palp: Yes Soft to palpation and No Tenderness to palpation present (GI) Auscultation: normal bowel sounds Back/Spine/Pelvis: Other: Normal alignment, no crepitus Skin: Other: Generalized pallor, non jaundice Neuro: Speech: normal speech Motor exam (neuro): 5/5 motor strength present throughout Extrem: Other: No cyanosis, no edema Psych: Other: Appropriate mood and affect, pleasant and cooperative, fair judgment and insight Objective Data Vital Signs Vital Signs: Vital Signs - 24 hr 10/26/24 19:48 10/26/24 20:00 10/26/24 20:05 Temperature 97.7 F Pulse Rate 89 95 Respiratory Rate 18 Blood Pressure 146/88 H Pulse Oximetry 100 100 98 Oxygen Delivery Room Air Room Air Fraction of Inspired Oxygen 10/26/24 20:05 10/26/24 20:16 10/27/24 01:29 Temperature Pulse Rate 95 95 92 Respiratory Rate 20 20 20 Blood Pressure Pulse Oximetry Oxygen Delivery Fraction of Inspired Oxygen 10/27/24 01:39 10/27/24 07:19 10/27/24 07:19 Temperature Pulse Rate 95 96 Respiratory Rate 20 20 Blood Pressure Pulse Oximetry 94 Oxygen Delivery Room Air Fraction of Inspired Oxygen 21 10/27/24 07:28 10/27/24 10:04 10/27/24 10:05 Temperature Pulse Rate 94 105 H Respiratory Rate 20 Blood Pressure Pulse Oximetry Oxygen Delivery Room Air Fraction of Inspired Oxygen 10/27/24 14:00 10/27/24 14:00 10/27/24 14:10 Temperature 97.9 F Pulse Rate 95 95 96 Respiratory Rate 20 18 20 Blood Pressure 115/72 Pulse Oximetry 100 Oxygen Delivery Fraction of Inspired Oxygen Intake/Output Intake/Output: Intake & Output 10/24/24 10/25/24 10/26/24 10/27/24 23:59 23:59 23:59 23:59 Intake Total 1850 1470 1420 820 Output Total 2600 1865 2450 Balance -750 395 1034 820 Meds/Results Medications: Active Medications Generic Name Dose Route Start Last Admin Trade Name Freq PRN Reason Stop Dose Admin Acyclovir 400 mg 10/23/24 09:00 10/27/24 13:03 Acyclovir 400 Mg Tablet PO 400 mg TID ROSA MARIA Administration Albuterol/Ipratropium 3 ml 10/23/24 08:00 10/27/24 14:00 Ipratropium 0.5 Mg/Albuterol Sulfate 2.5 Mg Ampul.Neb 3 Ml INHALATION 3 ml Q6HRT ROSA MARIA Administration Atorvastatin Calcium 40 mg 10/23/24 21:00 10/26/24 20:18 Atorvastatin 40 Mg Tablet PO 40 mg HS ROSA MARIA Administration Clopidogrel Bisulfate 75 mg 10/23/24 09:00 10/27/24 10:05 Clopidogrel Bisulfate 75 Mg Tablet PO 75 mg DAILY ROSA MARIA Administration Cyanocobalamin 1,000 mcg 10/23/24 09:00 10/27/24 10:04 Cyanocobalamin 1,000 Mcg Tablet PO 1,000 mcg DAILY ROSA MARIA Administration Dextrose 12.5 gm 10/23/24 08:01 Dextrose 50% 25 Gm/50 Ml Syringe IV PUSH PRN PRN Hypoglycemia Protocol Empagliflozin 10 mg 10/23/24 09:00 10/27/24 10:04 Empagliflozin 10 Mg Tablet PO 10 mg DAILY ROSA MARIA Administration Fish Oil 1 gm 10/23/24 09:00 10/27/24 10:04 [place] 3 Polyunsat Fatty Acids 1 Gm Cap PO 1 gm DAILY ROSA MARIA Administration Fluticasone/Umeclidinium/Vilanterol 1 puff 10/23/24 08:00 10/26/24 07:20 Fluticasone/Umeclidin/Vilanter 200-62.5-25 Mcg Ellipta INHALATION 1 puff DAILYRT ROSA MARIA Administration Gabapentin 300 mg 10/23/24 09:00 10/27/24 13:03 Gabapentin 300 Mg Capsule PO 300 mg QID ROSA MARIA Administration Glucagon 1 mg 10/23/24 08:01 Glucagon For Inj 1 Mg Vial IM PRN PRN Hypoglycemia Protocol Glucose 15 gm 10/23/24 08:01 Glucose Oral Gel 15 Gm Of Glucse In 37.5 Gm Tube PO PRN PRN Hypoglycemia Protocol Guaifenesin 600 mg 10/23/24 09:00 10/27/24 10:03 Guaifenesin 12 Hr 600 Mg Tabcr PO 600 mg Q12HR ROSA MARIA Administration Dextrose 1,000 mls @ 100 mls/hr 10/23/24 08:01 Dextrose 5% 1,000 Ml IVPB PRN PRN Hypoglycemia Protocol Cefepime HCl 2 gm in 50 mls @ 100 mls/hr 10/26/24 14:00 10/27/24 13:33 Maxipime 2 Gm/Ns 50 Ml IVPB Infused Q8HR ROSA MARIA Infusion Insulin Aspart 4 - 8 units 10/24/24 08:00 10/27/24 12:00 Insulin Aspart (*Bkc) 100 Units/Ml SUB-Q Not Given TIDWM [facility] Protocol Insulin Glargine 5 units 10/23/24 21:00 10/26/24 20:19 Insulin Glargine (*Bkc) 100 Units/Ml SUB-Q Not Given HS [facility] Insulin Glargine 12 units 10/25/24 21:00 10/26/24 20:19 Insulin Glargine (*Bkc) 100 Units/Ml 0.2 units/kg (12 units) 12 units SUB-Q Administration HS ROSA MARIA Melatonin 10 mg 10/23/24 22:55 10/26/24 20:18 Melatonin 5 Mg Tablet PO 10 mg HS PRN Administration Insomnia Metoprolol Succinate 12.5 mg 10/23/24 09:00 10/27/24 10:05 Metoprolol Succinate Ext Rel 12.5 Mg Tabcr PO 12.5 mg DAILY ROSA MARIA Administration Montelukast Sodium 10 mg 10/23/24 21:00 10/26/24 20:17 Montelukast Sodium 10 Mg Tablet PO 10 mg HS ROSA MARIA Administration Mycophenolate Mofetil 1,000 mg 10/23/24 09:00 10/27/24 10:03 Mycophenolate Mofetil 250 Mg Capsule PO 1,000 mg Q12HR ROSA MARIA Administration Nicotine 1 patch 10/23/24 09:00 10/27/24 10:03 Nicotine (*Pbkc) 21 Mg Patch TRANSDERM 1 patch DAILY ROSA MARIA Administration Ondansetron HCl 4 mg 10/23/24 03:12 Ondansetron Inj 4 Mg/2 Ml Vial IV PUSH Q4H PRN Nausea Pantoprazole Sodium 40 mg 10/23/24 09:00 10/27/24 10:04 Pantoprazole 40 Mg Tablet PO 40 mg Q12HR ROSA MARIA Administration Prednisone 40 mg 10/24/24 08:00 10/27/24 10:04 Prednisone 20 Mg Tablet PO 40 mg DAILY@0800 ROSA MARIA Administration Rivaroxaban 20 mg 10/23/24 17:00 10/26/24 18:09 Rivaroxaban 20 Mg Tablet PO 20 mg DAILY@1700 ROSA MARIA Administration Sucralfate 1,000 mg 10/26/24 16:30 10/27/24 10:09 Sucralfate Susp 100 Mg/Ml 10 Ml Udc PO 1,000 mg ACHS ROSA MARIA Administration Tacrolimus 0.5 mg 10/23/24 09:00 10/27/24 10:04 Tacrolimus 0.5 Mg Capsule PO 0.5 mg Q48HR ROSA MARIA Administration Vitamin D 2,000 units 10/23/24 09:00 10/27/24 10:04 Cholecalciferol 1,000 Units Tablet PO 2,000 units DAILY ROSA MARIA Administration Voriconazole 200 mg 10/23/24 09:00 10/27/24 10:04 Voriconazole 200 Mg Tablet PO 200 mg Q12HR ROSA MARIA Administration Radiology Results: ITS Impressions Chest CT 10/23/24 06:04 Impression: Extensive irregular right apical consolidation with areas of cavitation versus bronchiectasis or possibly necrotic change are similar to prior exam. Multiple additional areas of irregular consolidation and/or nodularity throughout the lungs, largely stable from prior exam, but with focal worsening at the left lung base. Vascular fact chronic postinflammatory change with additional new infection or atelectasis or scarring at the left lung base. Clinical correlation advised. Underlying advanced emphysema. Chest X-Ray 10/23/24 06:15 Impression: No interval change. COPD with stable extensive right apical consolidation and scarring/pleural thickening. Additional focal airspace opacity peripheral right midlung. Stable mild interstitial prominence left lung base, nonspecific. Labs Labs: Laboratory Results - last 24 hr 10/26/24 10/26/24 10/27/24 17:41 19:50 05:33 WBC 16.5 H RBC 3.35 L Hgb 11.6 L Hct 35.5 L MCV 106.0 H MCH 34.6 H MCHC 32.7 RDW 14.4 Plt Count 418 H MPV 10.5 H Sodium 137 Potassium 3.9 Chloride 102 Carbon Dioxide 31 H Anion Gap 4 BUN 30 H Creatinine 0.70 Estim Creat Clear Calc 84 Estimated GFR > 60 Glucose 58 L* POC Capillary Glucose 198 H 184 H Calcium 8.6 Total Bilirubin 0.5 AST 37 ALT 25 Alkaline Phosphatase 117 Total Protein 7.0 Albumin 3.7 10/27/24 10/27/24 10/27/24 08:14 11:53 16:52 WBC RBC Hgb Hct MCV MCH MCHC RDW Plt Count MPV Sodium Potassium Chloride Carbon Dioxide Anion Gap BUN Creatinine Estim Creat Clear Calc Estimated GFR Glucose POC Capillary Glucose 113 H 135 H 258 H Calcium Total Bilirubin AST ALT Alkaline Phosphatase Total Protein Albumin
--- NOTE | 2024-10-27 17:02 | PC.NURSE ---
RN was given a critical lab value at 0945 via telephone when the lab value was resulted in the computer at 0533. Critically low glucose was never treated due to lab not reporting it to mine shifter RN. Day shift RN had IT ADMIN take blood sugar before breakfast and it resulted as 113. call center agent and Hospitalist Fadia Willams aware.
[2024-10-27] MEDS: RIVAROXABAN 20 MG TABLET PO (17:44)
[2024-10-27] MEDS: INSULIN ASPART (*BKC) 100 UNITS/ML SUB-Q (17:46)
[2024-10-27] MEDS: ATORVASTATIN 40 MG TABLET PO (20:53)
[2024-10-27] MEDS: MONTELUKAST SODIUM 10 MG TABLET PO (20:54)
[2024-10-27] MEDS: MELATONIN 5 MG TABLET 10 MG PO (20:54)
[2024-10-27] MEDS: INSULIN GLARGINE (*BKC) 100 UNITS/ML 12 UNITS SUB-Q (21:04)
[2024-10-27 23:38] LABS: Glucose Point of Care 200 mg/dl (65-105)
[2024-10-28] VITALS (13 sets, daily range): BP systolic 121–142; BP diastolic 76–82; PULSE 75–91; RESP 16–20; TEMP 36.2–36.6; O2SAT 95–98
[2024-10-28] MEDS: IPRATROPIUM 0.5 MG/ALBUTEROL SULFATE 2.5 MG AMPUL.NEB 3 ML INHALATION ×4 (02:59→21:42)
[2024-10-28] MEDS: SUCRALFATE SUSP 100 MG/ML 10 ML UDC 1000 MG PO ×4 (05:48→20:56)
[2024-10-28] MEDS: CEFEPIME 2 GM/NS 50 ML 2 GM/50 ML BAG IVPB ×3 (05:48→21:02)
[2024-10-28 06:19] LABS: Hematocrit 34.6 % (42.0-52.0); Hemoglobin 11.5 g/dL (14.0-18.0); Mean Corpuscular HGB Conc 33.2 g/dl (32-36); Mean Corpuscular Hemoglobin 34.4 pg (26-34); Mean Corpuscular Volume 103.6 fl (80-100); Mean Platelet Volume 10.1 fl (7.4-10.4); Platelet Count Result 404 k/mm3 (150-375); Red Blood Count 3.34 M/mm3 (4.6-6.20); Red Cell Distribution Width 14.1 % (11.5-14.5); White Blood Count 10.1 K/mm3 (4.5-10.0)
[2024-10-28 06:32] LABS: Alanine Aminotransferase 27 U/L (6-50); Albumin Level 3.9 g/dL (3.5-5.1); Alkaline Phosphatase 121 U/L (38-126); Anion Gap 6 mmol/L (4-12); Aspartate Amino Transferase 36 U/L (17-59); Bilirubin,Total 0.5 mg/dL (0.2-1.3); Blood Urea Nitrogen 33 mg/dL (9-20); Calcium 9.1 mg/dL (8.4-10.2); Carbon Dioxide 28 mmol/L (22-30); Chloride 102 mmol/L (98-107); Estimated CRCL calculation 84 ml/min; Estimated Glomerular Filt Rate > 60; Glucose 158 mg/dL (65-110); Potassium 4.2 mmol/L (3.4-5.0); Sodium 136 mmol/L (137-145)
[2024-10-28 07:58] LABS: Glucose Point of Care 154 mg/dl (65-105)
[2024-10-28] MEDS: GABAPENTIN 300 MG CAPSULE PO ×4 (08:14→20:57)
[2024-10-28] MEDS: mycophenolate mofetiL 250 MG CAPSULE 1000 MG PO ×2 (08:14→20:56)
[2024-10-28] MEDS: EMPAGLIFLOZIN 10 MG TABLET PO (08:14)
[2024-10-28] MEDS: CHOLECALCIFEROL 1,000 UNITS TABLET 2000 UNITS PO (08:14)
[2024-10-28] MEDS: ACYCLOVIR 400 MG TABLET PO ×3 (08:14→17:58)
[2024-10-28] MEDS: CLOPIDOGREL BISULFATE 75 MG TABLET PO (08:15)
[2024-10-28] MEDS: VORICONAZOLE 200 MG TABLET PO ×2 (08:15→20:57)
[2024-10-28] MEDS: METOPROLOL SUCCINATE EXT REL 12.5 MG TABCR PO (08:15)
[2024-10-28] MEDS: PANTOPRAZOLE 40 MG TABLET PO ×2 (08:15→20:57)
[2024-10-28] MEDS: predniSONE 20 MG TABLET 40 MG PO (08:15)
[2024-10-28] MEDS: guaiFENesin 12 HR 600 MG TABCR PO ×2 (08:15→20:57)
[2024-10-28] MEDS: OMEGA 3 POLYUNSAT FATTY ACIDS 1 GM CAP PO (08:15)
[2024-10-28] MEDS: CYANOCOBALAMIN 1,000 MCG TABLET 1000 MCG PO (08:16)
[2024-10-28] MEDS: NICOTINE (*PBKC) 21 MG PATCH 1 PATCH TRANSDERM (08:16)
[2024-10-28] MEDS: FLUTICASONE/UMECLIDIN/VILANTER 200-62.5-25 MCG ELLIPTA 1 PUFF INHALATION (08:19)
--- NOTE | 2024-10-28 09:22 | PCNFU ---
Nutrition Follow-Up Complete: Moderate malnutrition related to swallowing difficulties as evidenced by weight loss 14%/8 months (not significant); intakes <75% needs >1 month; moderate muscle wasting; severe fat loss Goal: Adequate PO intake 75% or greater Patient is meeting goal. No new goal. Pt current nutrition is DBCC with Glucerna shakes BID. Last recorded weight is 60.1 kg, up from 57 kg on admit. Bowel Motility: Last reported BM 10/27 Labs Reviewed:Glu 158, Na 136, Hct 34.6, Hgb 11.5 Meds Noted: NovoLog, Prednisone, Jardiance, Vit D, Vit B12. Skin: WNL Additional Notes: Patient remains on a DBCC diet with Glucerna shakes BID. Intake has been > 75% of meals. Agree with diet orders. Monitoring intakes, weights, labs, supplement tolerance, plan of care Follow up in 7 days
--- NOTE | 2024-10-28 11:58 | ECG_ITS ---
Test Date: 2024-10-28 12:39:19 Measurements Intervals Alligator Rate: 67 P: 85 [place]: 147 QRS: 87 QRSD: 97 T: 123 QT: 412 QTc: 437 Interpretive Statements SINUS RHYTHM ST DEVIATION AND MODERATE T-WAVE ABNORMALITY, CONSIDER ANTEROLATERAL ISCHEMIA [-0.1+ mV T-WAVE IN V3-V6] Compared to ECG 10/23/2024 00:15:29 T-wave abnormality now present Possible ischemia now present Sinus tachycardia no longer present Ventricular premature complex(es) no longer present Right-axis deviation no longer present Electronically Signed On 10-28-2024 19:00:41 EMPLOYMENT INTERVIEWER by Michael Sapp
[2024-10-28 12:17] LABS: Glucose Point of Care 192 mg/dl (65-105)
--- NOTE | 2024-10-28 13:00 | P.PNIM_ITS ---
Progress Note: A&P Assessment and Plan (1) Pseudomonas pneumonia: Code(s): J15.1 - Pneumonia due to Pseudomonas Status: Acute Assessment and Plan: Patient last treated at [facility] of cavitary lesions and refractory infection was positive for Mycobacterium avium and Stenotrophomonas patient received IV azithromycin, FM albuterol and Amikacin last sputum here at [facility] grew Pseudomonas resistant to Levaquin 07/23/2024 time of transfer was never treated for a Pseudomonas at [facility] * WBC trending down * sputum culture pending * continue cefepime pending culture * Last sputum culture showed a Pseudomonas which was read resistant to Levaquin * Continue prednisone (2) COPD exacerbation: Code(s): J44.1 - Chronic obstructive pulmonary disease with (acute) exacerbation Status: Acute Assessment and Plan: Patient states he had been out of his inhalers and nebulizers for the last 2 weeks has had increased worsening shortness of breath patient is still currently smoking * Continue nebulizer breathing treatments * Chest x-ray/Chest CT reviewed stable from previous * incentive spirometry while awake. * Continue prednisone taper--long duration * Continue cefepime * supplemental oxygen therapy to maintain oxygen 92%/Wears 3L NC at home at night * Smoking cessation * Follow-up with delinquent tax collection assistant as an outpatient (3) Acute on chronic respiratory failure with hypoxia and hypercapnia: Code(s): J96.21 - Acute and chronic respiratory failure with hypoxia; J96.22 - Acute and chronic respiratory failure with hypercapnia Status: Acute Assessment and Plan: * Continue BiPAP at night (4) Dysphagia: Code(s): R13.10 - Dysphagia, unspecified Status: Acute Assessment and Plan: * EGD report shows severe gastritis * continue with PPI * Continue Carafate * GI has signed off (5) Type 2 diabetes mellitus with hyperglycemia, with long-term current use of insulin: Code(s): E11.65 - Type 2 diabetes mellitus with hyperglycemia; Z79.4 - custodial (current) use of insulin Status: Acute Assessment and Plan: * Blood sugars ranging 154-258 * Hgb A1C 6.3 * Accu checks AC/HS * High-dose SSI ordered * hypoglycemic protocol in place * Diabetic diet ordered (6) Immunocompromised patient: Code(s): D84.9 - Immunodeficiency, unspecified Status: Acute Assessment and Plan: * 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 Workup in the hospital included a chest CT which shown the extensive irregular right apical consolidation with areas of cavitation versus bronchiectasis or possible necrotic change, multiple additional areas of irregular consolidation and/or nodularity throughout the lungs, multiple additional areas of irregular consolidation and or nodularity throughout the lungs, large loose stable from prior exam but with focal worsening at the left lung base. Chest x-ray showed COPD with stable extensive right apical consolidation and scarring pleural thickness, stable mild interstitial prominent left lung base. Initial white blood cell count 27.1, hemoglobin 10.9, blood sugars 234-270, alkaline phosphate 154. Sputum culture obtained and pending. Previous sputum cultures showing Pseudomonas aeruginosa. Currently on Cefepime. Subjective: Patient denies any fever, chills, nausea, vomiting, diarrhea, abdominal pain, chest pain, or shortness of breath. Labs and imaging reviewed. Review of Systems Review of Systems: All systems reviewed & are unremarkable except as noted in HPI and below Constitutional: Constitutional: Reports as per HPI and Reports no additional constitutional complaints Eyes: Eyes: Reports as per HPI and Reports no additional eye complaints ENT: Reports system reviewed and no additional complaints, except as documented and Reports as per HPI Cardiovascular: Cardiovascular: Reports as per HPI and Reports no additional cardiovascular complaints Respiratory: Respiratory: Reports as per HPI and Reports no additional res piratory complaints Gastrointestinal: Gastrointestinal: Reports as per HPI and Reports no additional gastrointestinal complaints Genitourinary: Genitourinary: Reports no additional male genitourinary complaints and Reports as per HPI Musculoskeletal: Musculoskeletal: Reports no additional musculoskeletal complaints and Reports as per HPI Integumentary/Breasts: Skin/Breast: Reports system reviewed and no additional complaints, except as docu and Reports as per HPI Neurologic: Reports system reviewed and no additional complaints, except as documented and Reports as per HPI Psychiatric: Psychiatric: Reports no additional psychiatric complaints and Reports as per HPI Exam Narrative: General: In no acute distress, well nourished Head: atraumatic, no encephalopathy Eyes: PERRLA, sclera clear ENT: moist mucous membranes, nasal passages clear Neck: supple, no JVD, no adenopathy, trachea midline Cardiac: Normal S1 and S2. No murmur, gallops or friction rubs, peripheral pulses intact. Respiratory: Lungs clear to auscultation, diminished in bases, no adventitious lung sounds, currently on room air Gastrointestinal: soft, non-distended, non-tender, normoactive bowel sounds. : voiding without difficulty. Extremities: moves all extremities well, no edema, good ROM, strength 5/5 Skin: clean, dry, intact. No wounds or lesions. Neuro: Alert and oriented x4, cranial nerves intact, no neuro deficits. Psych: normal mood, normal affect, interactive Objective Data Vital Signs Vital Signs: Vital Signs - 24 hr 10/27/24 14:00 10/27/24 14:00 10/27/24 14:10 Temperature 97.9 F Pulse Rate 95 95 96 Respiratory Rate 20 18 20 Blood Pressure 115/72 Pulse Oximetry 100 Oxygen Delivery 10/27/24 19:16 10/27/24 19:20 10/27/24 19:26 Temperature Pulse Rate 85 86 Respiratory Rate 18 18 Blood Pressure Pulse Oximetry 96 Oxygen Delivery Room Air 10/27/24 20:00 10/27/24 20:54 10/28/24 03:00 Temperature 98.8 F Pulse Rate 86 86 Respiratory Rate 18 18 Blood Pressure 121/84 Pulse Oximetry 100 99 Oxygen Delivery Room Air 10/28/24 03:08 10/28/24 06:00 10/28/24 08:06 Temperature 97.9 F Pulse Rate 86 91 Respiratory Rate 18 16 Blood Pressure 142/82 H Pulse Oximetry 98 Oxygen Delivery Room Air 10/28/24 08:20 10/28/24 08:21 10/28/24 08:35 Temperature Pulse Rate 79 85 Respiratory Rate 18 18 Blood Pressure Pulse Oximetry 97 Oxygen Delivery Room Air Intake/Output Intake/Output: Intake & Output 10/25/24 10/26/24 10/27/24 10/28/24 23:59 23:59 23:59 23:59 Intake Total 1470 1420 2020 1340 Output Total 1865 2450 3000 1800 Balance -395 -1030 -980 -460 Meds/Results Medications: Active Medications Generic Name Dose Route Start Last Admin Trade Name Freq PRN Reason Stop Dose Admin Acyclovir 400 mg 10/23/24 09:00 10/28/24 12:29 Acyclovir 400 Mg Tablet PO 400 mg TID ROSA MARIA Administration Albuterol/Ipratropium 3 ml 10/23/24 08:00 10/28/24 08:19 Ipratropium 0.5 Mg/Albuterol Sulfate 2.5 Mg Ampul.Neb 3 Ml INHALATION 3 ml Q6HRT ROSA MARIA Administration Atorvastatin Calcium 40 mg 10/23/24 21:00 10/27/24 20:53 Atorvastatin 40 Mg Tablet PO 40 mg HS ROSA MARIA Administration Clopidogrel Bisulfate 75 mg 10/23/24 09:00 10/28/24 08:15 Clopidogrel Bisulfate 75 Mg Tablet PO 75 mg DAILY ROSA MARIA Administration Cyanocobalamin 1,000 mcg 10/23/24 09:00 10/28/24 08:16 Cyanocobalamin 1,000 Mcg Tablet PO 1,000 mcg DAILY ROSA MARIA Administration Dextrose 12.5 gm 10/23/24 08:01 Dextrose 50% 25 Gm/50 Ml Syringe IV PUSH PRN PRN Hypoglycemia Protocol Empagliflozin 10 mg 10/23/24 09:00 10/28/24 08:14 Empagliflozin 10 Mg Tablet PO 10 mg DAILY ROSA MARIA Administration Fish Oil 1 gm 10/23/24 09:00 10/28/24 08:15 [place] 3 Polyunsat Fatty Acids 1 Gm Cap PO 1 gm DAILY ROSA MARIA Administration Fluticasone/Umeclidinium/Vilanterol 1 puff 10/23/24 08:00 10/28/24 08:19 Fluticasone/Umeclidin/Vilanter 200-62.5-25 Mcg Ellipta INHALATION 1 puff DAILYRT ROSA MARIA Administration Gabapentin 300 mg 10/23/24 09:00 10/28/24 12:29 Gabapentin 300 Mg Capsule PO 300 mg QID ROSA MARIA Administration Glucagon 1 mg 10/23/24 08:01 Glucagon For Inj 1 Mg Vial IM PRN PRN Hypoglycemia Protocol Glucose 15 gm 10/23/24 08:01 Glucose Oral Gel 15 Gm Of Glucse In 37.5 Gm Tube PO PRN PRN Hypoglycemia Protocol Guaifenesin 600 mg 10/23/24 09:00 10/28/24 08:15 Guaifenesin 12 Hr 600 Mg Tabcr PO 600 mg Q12HR ROSA MARIA Administration Dextrose 1,000 mls @ 100 mls/hr 10/23/24 08:01 Dextrose 5% 1,000 Ml IVPB PRN PRN Hypoglycemia Protocol Cefepime HCl 2 gm in 50 mls @ 100 mls/hr 10/26/24 14:00 10/28/24 05:48 Maxipime 2 Gm/Ns 50 Ml IVPB 100 mls/hr Q8HR ROSA MARIA Administration Insulin Aspart 4 - 8 units 10/24/24 08:00 10/28/24 12:30 Insulin Aspart (*Bkc) 100 Units/Ml SUB-Q Not Given TIDWM [facility] Protocol Insulin Glargine 5 units 10/23/24 21:00 10/27/24 21:11 Insulin Glargine (*Bkc) 100 Units/Ml SUB-Q Not Given HS [facility] Insulin Glargine 12 units 10/25/24 21:00 10/27/24 21:04 Insulin Glargine (*Bkc) 100 Units/Ml 0.2 units/kg (12 units) 12 units SUB-Q Administration HS ROSA MARIA Melatonin 10 mg 10/23/24 22:55 10/27/24 20:54 Melatonin 5 Mg Tablet PO 10 mg HS PRN Administration Insomnia Metoprolol Succinate 12.5 mg 10/23/24 09:00 10/28/24 08:15 Metoprolol Succinate Ext Rel 12.5 Mg Tabcr PO 12.5 mg DAILY ROSA MARIA Administration Montelukast Sodium 10 mg 10/23/24 21:00 10/27/24 20:54 Montelukast Sodium 10 Mg Tablet PO 10 mg HS ROSA MARIA Administration Mycophenolate Mofetil 1,000 mg 10/23/24 09:00 10/28/24 08:14 Mycophenolate Mofetil 250 Mg Capsule PO 1,000 mg Q12HR ROSA MARIA Administration Nicotine 1 patch 10/23/24 09:00 10/28/24 08:16 Nicotine (*Pbkc) 21 Mg Patch TRANSDERM 1 patch DAILY ROSA MARIA Administration Ondansetron HCl 4 mg 10/23/24 03:12 Ondansetron Inj 4 Mg/2 Ml Vial IV PUSH Q4H PRN Nausea Pantoprazole Sodium 40 mg 10/23/24 09:00 10/28/24 08:15 Pantoprazole 40 Mg Tablet PO 40 mg Q12HR ROSA MARIA Administration Prednisone 40 mg 10/24/24 08:00 10/28/24 08:15 Prednisone 20 Mg Tablet PO 40 mg DAILY@0800 ROSA MARIA Administration Rivaroxaban 20 mg 10/23/24 17:00 10/27/24 17:44 Rivaroxaban 20 Mg Tablet PO 20 mg DAILY@1700 ROSA MARIA Administration Sucralfate 1,000 mg 10/26/24 16:30 10/28/24 12:29 Sucralfate Susp 100 Mg/Ml 10 Ml Udc PO 1,000 mg ACHS ROSA MARIA Administration Tacrolimus 0.5 mg 10/23/24 09:00 10/27/24 10:04 Tacrolimus 0.5 Mg Capsule PO 0.5 mg Q48HR ROSA MARIA Administration Vitamin D 2,000 units 10/23/24 09:00 10/28/24 08:14 Cholecalciferol 1,000 Units Tablet PO 2,000 units DAILY ROSA MARIA Administration Voriconazole 200 mg 10/23/24 09:00 10/28/24 08:15 Voriconazole 200 Mg Tablet PO 200 mg Q12HR ROSA MARIA Administration Radiology Results: ITS Impressions Chest CT 10/23/24 06:04 Impression: Extensive irregular right apical consolidation with areas of cavitation versus bronchiectasis or possibly necrotic change are similar to prior exam. Multiple additional areas of irregular consolidation and/or nodularity throughout the lungs, largely stable from prior exam, but with focal worsening at the left lung base. Vascular fact chronic postinflammatory change with additional new infection or atelectasis or scarring at the left lung base. Clinical correlation advised. Underlying advanced emphysema. Chest X-Ray 10/23/24 06:15 Impression: No interval change. COPD with stable extensive right apical consolidation and scarring/pleural thickening. Additional focal airspace opacity peripheral right midlung. Stable mild interstitial prominence left lung base, nonspecific. Labs Labs: Laboratory Results - last 24 hr 10/27/24 10/27/24 10/28/24 16:52 20:53 05:49 WBC 10.1 H RBC 3.34 L Hgb 11.5 L Hct 34.6 L MCV 103.6 H MCH 34.4 H MCHC 33.2 RDW 14.1 Plt Count 404 H MPV 10.1 Sodium 136 L Potassium 4.2 Chloride 102 Carbon Dioxide 28 Anion Gap 6 BUN 33 H Creatinine 0.70 Estim Creat Clear Calc 84 Estimated GFR > 60 Glucose 158 H POC Capillary Glucose 258 H 200 H Calcium 9.1 Total Bilirubin 0.5 AST 36 ALT 27 Alkaline Phosphatase 121 Total Protein 8.0 Albumin 3.9 10/28/24 10/28/24 07:55 12:11 WBC RBC Hgb Hct MCV MCH MCHC RDW Plt Count MPV Sodium Potassium Chloride Carbon Dioxide Anion Gap BUN Creatinine Estim Creat Clear Calc Estimated GFR Glucose POC Capillary Glucose 154 H 192 H Calcium Total Bilirubin AST ALT Alkaline Phosphatase Total Protein Albumin Quality VTE Prophylaxis VTE prophylaxis: pharmacologic ordered (Continue home Xarelto.)
[2024-10-28 16:22] LABS: Cholesterol 157 mg/dL (0-200); HDL Direct 63 mg/dL; Triglycerides 149 mg/dL (<150)
[2024-10-28 16:32] LABS: LDL Cholesterol Direct 59 mg/dL
[2024-10-28 16:54] LABS: Thyroid Stimulating Hormone 0.191 uIU/mL (0.465-4.680)
[2024-10-28 16:57] LABS: Glucose Point of Care 318 mg/dl (65-105)
[2024-10-28] MEDS: RIVAROXABAN 20 MG TABLET PO (17:58)
[2024-10-28] MEDS: INSULIN ASPART (*BKC) 100 UNITS/ML SUB-Q (17:58)
[2024-10-28 18:15] LABS: Hemoglobin A1C 6.4 % (<5.7)
[2024-10-28] MEDS: MONTELUKAST SODIUM 10 MG TABLET PO (20:57)
[2024-10-28] MEDS: ATORVASTATIN 40 MG TABLET PO (20:57)
[2024-10-28] MEDS: MELATONIN 5 MG TABLET 10 MG PO (20:57)
[2024-10-28 21:30] LABS: Glucose Point of Care 224 mg/dl (65-105)
[2024-10-28] MEDS: INSULIN GLARGINE (*BKC) 100 UNITS/ML 12 UNITS SUB-Q (22:40)
[2024-10-29] VITALS (12 sets, daily range): BP systolic 115–136; BP diastolic 51–84; PULSE 69–82; RESP 16–18; TEMP 36.1–36.4; O2SAT 94–100
[2024-10-29] MEDS: IPRATROPIUM 0.5 MG/ALBUTEROL SULFATE 2.5 MG AMPUL.NEB 3 ML INHALATION ×4 (03:30→22:37)
[2024-10-29 03:47] LABS: Glucose Point of Care 111 mg/dl (65-105)
[2024-10-29] MEDS: SUCRALFATE SUSP 100 MG/ML 10 ML UDC 1000 MG PO ×4 (06:32→23:56)
[2024-10-29] MEDS: CEFEPIME 2 GM/NS 50 ML 2 GM/50 ML BAG IVPB (06:33)
[2024-10-29 06:36] LABS: Hematocrit 31.5 % (42.0-52.0); Hemoglobin 10.4 g/dL (14.0-18.0); Mean Corpuscular Hemoglobin 34.4 pg (26-34); Mean Corpuscular Volume 104.3 fl (80-100); Mean Platelet Volume 9.6 fl (7.4-10.4); Platelet Count Result 371 k/mm3 (150-375); Red Blood Count 3.02 M/mm3 (4.6-6.20); Red Cell Distribution Width 14.4 % (11.5-14.5); White Blood Count 13.1 K/mm3 (4.5-10.0)
[2024-10-29 06:48] LABS: Alanine Aminotransferase 22 U/L (6-50); Albumin Level 3.4 g/dL (3.5-5.1); Alkaline Phosphatase 98 U/L (38-126); Anion Gap 4 mmol/L (4-12); Aspartate Amino Transferase 26 U/L (17-59); Bilirubin,Total 0.3 mg/dL (0.2-1.3); Blood Urea Nitrogen 36 mg/dL (9-20); Calcium 8.6 mg/dL (8.4-10.2); Carbon Dioxide 29 mmol/L (22-30); Chloride 104 mmol/L (98-107); Estimated CRCL calculation 59 ml/min; Estimated Glomerular Filt Rate > 60; Glucose 172 mg/dL (65-110); Potassium 3.8 mmol/L (3.4-5.0); Sodium 137 mmol/L (137-145)
[2024-10-29] MEDS: FLUTICASONE/UMECLIDIN/VILANTER 200-62.5-25 MCG ELLIPTA 1 PUFF INHALATION (07:43)
[2024-10-29 08:24] LABS: Glucose Point of Care 172 mg/dl (65-105)
[2024-10-29] MEDS: mycophenolate mofetiL 250 MG CAPSULE 1000 MG PO ×2 (08:34→23:55)
[2024-10-29] MEDS: GABAPENTIN 300 MG CAPSULE PO ×4 (08:34→23:59)
[2024-10-29] MEDS: CYANOCOBALAMIN 1,000 MCG TABLET 1000 MCG PO (08:34)
[2024-10-29] MEDS: CLOPIDOGREL BISULFATE 75 MG TABLET PO (08:35)
[2024-10-29] MEDS: NICOTINE (*PBKC) 21 MG PATCH 1 PATCH TRANSDERM (08:35)
[2024-10-29] MEDS: OMEGA 3 POLYUNSAT FATTY ACIDS 1 GM CAP PO (08:35)
[2024-10-29] MEDS: CHOLECALCIFEROL 1,000 UNITS TABLET 2000 UNITS PO (08:35)
[2024-10-29] MEDS: TACROLIMUS 0.5 MG CAPSULE PO (08:35)
[2024-10-29] MEDS: METOPROLOL SUCCINATE EXT REL 12.5 MG TABCR PO (08:35)
[2024-10-29] MEDS: ACYCLOVIR 400 MG TABLET PO ×3 (08:35→16:42)
[2024-10-29] MEDS: predniSONE 20 MG TABLET 40 MG PO (08:35)
[2024-10-29] MEDS: PANTOPRAZOLE 40 MG TABLET PO ×2 (08:35→23:55)
[2024-10-29] MEDS: EMPAGLIFLOZIN 10 MG TABLET PO (08:35)
[2024-10-29] MEDS: VORICONAZOLE 200 MG TABLET PO ×2 (08:35→23:55)
[2024-10-29] MEDS: guaiFENesin 12 HR 600 MG TABCR PO ×2 (08:35→23:55)
[2024-10-29 11:53] LABS: Glucose Point of Care 222 mg/dl (65-105)
[2024-10-29] MEDS: INSULIN ASPART (*BKC) 100 UNITS/ML SUB-Q ×2 (12:35→17:31)
--- NOTE | 2024-10-29 12:38 | P.PNIM_ITS ---
Progress Note: A&P Assessment and Plan (1) Pseudomonas pneumonia: Code(s): J15.1 - Pneumonia due to Pseudomonas Status: Acute Assessment and Plan: Patient last treated at [facility] of cavitary lesions and refractory infection was positive for Mycobacterium avium and Stenotrophomonas patient received IV azithromycin, FM albuterol and Amikacin last sputum here at [facility] grew Pseudomonas resistant to Levaquin 07/23/2024 time of transfer was never treated for a Pseudomonas at [facility] * WBC trending down * sputum culture pending * continue cefepime pending culture * Last sputum culture showed a Pseudomonas which was read resistant to Levaquin * Continue prednisone (2) COPD exacerbation: Code(s): J44.1 - Chronic obstructive pulmonary disease with (acute) exacerbation Status: Acute Assessment and Plan: Patient states he had been out of his inhalers and nebulizers for the last 2 weeks has had increased worsening shortness of breath patient is still currently smoking * Continue nebulizer breathing treatments * Chest x-ray/Chest CT reviewed stable from previous * incentive spirometry while awake. * Continue prednisone taper--long duration * Continue cefepime * supplemental oxygen therapy to maintain oxygen 92%/Wears 3L NC at home at night * Smoking cessation * Follow-up with clinical trial coordinator as an outpatient (3) Acute on chronic respiratory failure with hypoxia and hypercapnia: Code(s): J96.21 - Acute and chronic respiratory failure with hypoxia; J96.22 - Acute and chronic respiratory failure with hypercapnia Status: Acute Assessment and Plan: * Continue BiPAP at night (4) Dysphagia: Code(s): R13.10 - Dysphagia, unspecified Status: Acute Assessment and Plan: * EGD report shows severe gastritis * continue with PPI * Continue Carafate * GI has signed off (5) Type 2 diabetes mellitus with hyperglycemia, with long-term current use of insulin: Code(s): E11.65 - Type 2 diabetes mellitus with hyperglycemia; Z79.4 - long-term (current) use of insulin Status: Acute Assessment and Plan: * Blood sugars ranging 154-258 * Hgb A1C 6.3 * Accu checks AC/HS * High-dose SSI ordered * hypoglycemic protocol in place * Diabetic diet ordered (6) Immunocompromised patient: Code(s): D84.9 - Immunodeficiency, unspecified Status: Acute Assessment and Plan: * 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 Workup in the hospital included a chest CT which shown the extensive irregular right apical consolidation with areas of cavitation versus bronchiectasis or possible necrotic change, multiple additional areas of irre gular consolidation and/or nodularity throughout the lungs, multiple additional areas of irregular consolidation and or nodularity throughout the lungs, large loose stable from prior exam but with focal worsening at the left lung base. Chest x-ray showed COPD with stable extensive right apical consolidation and scarring pleural thickness, stable mild interstitial prominent left lung base. Initial white blood cell count 27.1, hemoglobin 10.9, blood sugars 234-270, alkaline phosphate 154. Sputum culture obtained and pending. Previous sputum cultures showing Pseudomonas aeruginosa. Currently on Cefepime. Subjective: Patient denies any fever, chills, nausea, vomiting, diarrhea, abdominal pain, chest pain, or shortness of breath. Labs and imaging reviewed. Review of Systems Review of Systems: 12 systems were reviewed with pertinent positives and negatives per HPI. Except as documented in the HPI, all other systems were reviewed and are negative. All systems reviewed & are unremarkable except as noted in HPI and below Constitutional: Constitutional: Reports as per HPI and Reports no additional constitutional complaints Eyes: Eyes: Reports as per HPI and Reports no additional eye complaints ENT: Reports system reviewed and no additional complaints, except as documented and Reports as per HPI Cardiovascular: Cardiovascular: Reports as per HPI and Reports no additional cardiovascular complaints Respiratory: Respiratory: Reports as per HPI and Reports no additional respiratory complaints Gastrointestinal: Gastrointestinal: Reports as per HPI and Reports no additional gastrointestinal complaints Genitourinary: Genitourinary: Reports no additional male genitourinary complaints and Reports as per HPI Musculoskeletal: Musculoskeletal: Reports no additional musculoskeletal complaints and Reports as per HPI Integumentary/Breasts: Skin/Breast: Reports system reviewed and no additional complaints, except as docu and Reports as per HPI Neurologic: Reports system reviewed and no additional complaints, except as documented and Reports as per HPI Psychiatric: Psychiatric: Reports no additional psychiatric complaints and Reports as per HPI Exam Narrative: General: In no acute distress, well nourished Head: atraumatic, no encephalopathy Eyes: PERRLA, sclera clear ENT: moist mucous membranes, nasal passages clear Neck: supple, no JVD, no adenopathy, trachea midline Cardiac: Normal S1 and S2. No murmur, gallops or friction rubs, peripheral pulses intact. Respiratory: Lungs clear to auscultation, diminished in bases, no adventitious lung sounds, currently on room air Gastrointestinal: soft, non-distended, non-tender, normoactive bowel sounds. : voiding without difficulty. Extremities: moves all extremities well, no edema, good ROM, strength 5/5 Skin: clean, dry, intact. No wounds or lesions. Neuro: Alert and oriented x4, cranial nerves intact, no neuro deficits. Psych: normal mood, normal affect, interactive Objective Data Vital Signs Vital Signs: Vital Signs - 24 hr 10/28/24 13:19 10/28/24 13:31 10/28/24 14:00 Temperature 97.9 F Pulse Rate 84 88 85 Respiratory Rate 20 20 18 Blood Pressure 121/81 Pulse Oximetry 98 Oxygen Delivery Oxygen Flow Rate Fraction of Inspired Oxygen 10/28/24 20:00 10/28/24 20:05 10/28/24 21:46 Temperature 97.2 F L Pulse Rate 75 83 Respiratory Rate 18 18 Blood Pressure 124/76 Pulse Oximetry 95 Oxygen Delivery Room Air Oxygen Flow Rate Fraction of Inspired Oxygen 10/28/24 21:48 10/28/24 21:55 10/29/24 03:32 Temperature Pulse Rate 89 80 Respiratory Rate 19 18 Blood Pressure Pulse Oximetry 98 Oxygen Delivery Nasal Cannula Oxygen Flow Rate 2 Fraction of Inspired Oxygen 10/29/24 03:42 10/29/24 04:12 10/29/24 07:43 Temperature 97.6 F Pulse Rate 82 78 Respiratory Rate 18 16 Blood Pressure 122/76 Pulse Oximetry 100 98 Oxygen Delivery Nasal Cannula Oxygen Flow Rate 2.5 Fraction of Inspired Oxygen 30 10/29/24 07:43 10/29/24 07:57 10/29/24 08:45 Temperature Pulse Rate 80 77 Respiratory Rate 16 16 Blood Pressure Pulse Oximetry Oxygen Delivery Room Air Oxygen Flow Rate Fraction of Inspired Oxygen Intake/Output Intake/Output: Intake & Output 10/26/24 10/27/24 10/28/2410/29/24 23:59 23:59 23:59 23:59 Intake Total 1420 2019 3270 440 Output Total 2450 3000 1800 1500 Balance -1030 -980 1470 -1060 Meds/Results Medications: Active Medications Generic Name Dose Route Start Last Admin Trade Name Freq PRN Reason Stop Dose Admin Acyclovir 400 mg 10/23/24 09:00 10/29/24 12:35 Acyclovir 400 Mg Tablet PO 400 mg TID ROSA MARIA Administration Albuterol/Ipratropium 3 ml 10/23/24 08:00 10/29/24 07:41 Ipratropium 0.5 Mg/Albuterol Sulfate 2.5 Mg Ampul.Neb 3 Ml INHALATION 3 ml Q6HRT ROSA MARIA Administration Atorvastatin Calcium 40 mg 10/23/24 21:00 10/28/24 20:57 Atorvastatin 40 Mg Tablet PO 40 mg HS ROSA MARIA Administration Clopidogrel Bisulfate 75 mg 10/23/24 09:00 10/29/24 08:35 Clopidogrel Bisulfate 75 Mg Tablet PO 75 mg DAILY ROSA MARIA Administration Cyanocobalamin 1,000 mcg 10/23/24 09:00 10/29/24 08:34 Cyanocobalamin 1,000 Mcg Tablet PO 1,000 mcg DAILY ROSA MARIA Administration Dextrose 12.5 gm 10/23/24 08:01 Dextrose 50% 25 Gm/50 Ml Syringe IV PUSH PRN PRN Hypoglycemia Protocol Empagliflozin 10 mg 10/23/24 09:00 10/29/24 08:35 Empagliflozin 10 Mg Tablet PO 10 mg DAILY ROSA MARIA Administration Fish Oil 1 gm 10/23/24 09:00 10/29/24 08:35 Willis 3 Polyunsat Fatty Acids 1 Gm Cap PO 1 gm DAILY ROSA MARIA Administration Fluticasone/Umeclidinium/Vilanterol 1 puff 10/23/24 08:00 10/29/24 07:43 Fluticasone/Umeclidin/Vilanter 200-62.5-25 Mcg Ellipta INHALATION 1 puff DAILYRT ROSA MARIA Administration Gabapentin 300 mg 10/23/24 09:00 10/29/24 12:35 Gabapentin 300 Mg Capsule PO 300 mg QID ROSA MARIA Administration Glucagon 1 mg 10/23/24 08:01 Glucagon For Inj 1 Mg Vial IM PRN PRN Hypoglycemia Protocol Glucose 15 gm 10/23/24 08:01 Glucose Oral Gel 15 Gm Of Glucse In 37.5 Gm Tube PO PRN PRN Hypoglycemia Protocol Guaifenesin 600 mg 10/23/24 09:00 10/29/24 08:35 Guaifenesin 12 Hr 600 Mg Tabcr PO 600 mg Q12HR ROSA MARIA Administration Dextrose 1,000 mls @ 100 mls/hr 10/23/24 08:01 Dextrose 5% 1,000 Ml IVPB PRN PRN Hypoglycemia Protocol Cefepime HCl 2 gm in 50 mls @ 100 mls/hr 10/26/24 14:00 10/29/24 06:33 Maxipime 2 Gm/Ns 50 Ml IVPB 100 mls/hr Q8HR ROSA MARIA Administration Insulin Aspart 4 - 8 units 10/24/24 08:00 10/29/24 12:35 Insulin Aspart (*Bkc) 100 Units/Ml SUB-Q 4 units TIDWM ROSA MARIA Administration Protocol Insulin Glargine 12 units 10/28/24 22:40 10/28/24 22:40 Insulin Glargine (*Bkc) 100 Units/Ml SUB-Q 12 units HS ROSA MARIA Administration Melatonin 10 mg 10/23/24 22:55 10/28/24 20:57 Melatonin 5 Mg Tablet PO 10 mg HS PRN Administration Insomnia Metoprolol Succinate 12.5 mg 10/23/24 09:00 10/29/24 08:35 Metoprolol Succinate Ext Rel 12.5 Mg Tabcr PO 12.5 mg DAILY ROSA MARIA Administration Montelukast Sodium 10 mg 10/23/24 21:00 10/28/24 20:57 Montelukast Sodium 10 Mg Tablet PO 10 mg HS ROSA MARIA Administration Mycophenolate Mofetil 1,000 mg 10/23/24 09:00 10/29/24 08:34 Mycophenolate Mofetil 250 Mg Capsule PO 1,000 mg Q12HR ROSA MARIA Administration Nicotine 1 patch 10/23/24 09:00 10/29/24 08:35 Nicotine (*Pbkc) 21 Mg Patch TRANSDERM 1 patch DAILY ROSA MARIA Administration Ondansetron HCl 4 mg 10/23/24 03:12 Ondansetron Inj 4 Mg/2 Ml Vial IV PUSH Q4H PRN Nausea Pantoprazole Sodium 40 mg 10/23/24 09:00 10/29/24 08:35 Pantoprazole 40 Mg Tablet PO 40 mg Q12HR ROSA MARIA Administration Prednisone 30 mg 10/30/24 08:00 Prednisone 10 Mg Tablet PO DAILY@0800 [facility] Rivaroxaban 20 mg 10/23/24 17:00 10/28/24 17:58 Rivaroxaban 20 Mg Tablet PO 20 mg DAILY@1700 ROSA MARIA Administration Sucralfate 1,000 mg 10/26/24 16:30 10/29/24 11:42 Sucralfate Susp 100 Mg/Ml 10 Ml Udc PO 1,000 mg ACHS ROSA MARIA Administration Tacrolimus 0.5 mg 10/23/24 09:00 10/29/24 08:35 Tacrolimus 0.5 Mg Capsule PO 0.5 mg Q48HR ROSA MARIA Administration Vitamin D 2,000 units 10/23/24 09:00 10/29/24 08:35 Cholecalciferol 1,000 Units Tablet PO 2,000 units DAILY ROSA MARIA Administration Voriconazole 200 mg 10/23/24 09:00 10/29/24 08:35 Voriconazole 200 Mg Tablet PO 200 mg Q12HR ROSA MARIA Administration Radiology Results: ITS Impressions Chest CT 10/23/24 06:04 Impression: Extensive irregular right apical consolidation with areas of cavitation versus bronchiectasis or possibly necrotic change are similar to prior exam. Multiple additional areas of irregular consolidation and/or nodularity throughout the lungs, largely stable from prior exam, but with focal worsening at the left lung base. Vascular fact chronic postinflammatory change with additional new infection or atelectasis or scarring at the left lung base. Clinical correlation advised. Underlying advanced emphysema. Chest X-Ray 10/23/24 06:15 Impression: No interval change. COPD with stable extensive right apical consolidation and scarring/pleural thickening. Additional focal airspace opacity peripheral right midlung. Stable mild interstitial prominence left lung base, nonspecific. Labs Labs: Laboratory Results - last 24 hr 10/28/24 10/28/24 10/28/24 14:16 16:54 20:11 WBC RBC Hgb Hct MCV MCH MCHC RDW Plt Count MPV Sodium Potassium Chloride Carbon Dioxide Anion Gap BUN Creatinine Estim Creat Clear Calc Estimated GFR Glucose POC Capillary Glucose 318 H 224 H Hemoglobin A1c 6.4 H Calcium Total Bilirubin AST ALT Alkaline Phosphatase Total Protein Albumin Triglycerides 149 Cholesterol 157 LDL Cholesterol Direct 59 HDL Direct 63 TSH 0.191 L 10/29/24 10/29/24 10/29/24 03:39 06:16 08:19 WBC 13.1 H RBC 3.02 L Hgb 10.4 L Hct 31.5 L MCV 104.3 H MCH 34.4 H MCHC 33.0 RDW 14.4 Plt Count 371 MPV 9.6 Sodium 137 Potassium 3.8 Chloride 104 Carbon Dioxide 29 Anion Gap 4 BUN 36 H Creatinine 1.00 Estim Creat Clear Calc 59 Estimated GFR > 60 Glucose 172 H POC Capillary Glucose 111 H 172 H Hemoglobin A1c Calcium 8.6 Total Bilirubin 0.3 AST 26 ALT 22 Alkaline Phosphatase 98 Total Protein 7.0 Albumin 3.4 L Triglycerides Cholesterol LDL Cholesterol Direct HDL Direct TSH 10/29/24 11:50 WBC RBC Hgb Hct MCV MCH MCHC RDW Plt Count MPV Sodium Potassium Chloride Carbon Dioxide Anion Gap BUN Creatinine Estim Creat Clear Calc Estimated GFR Glucose POC Capillary Glucose 222 H Hemoglobin A1c Calcium Total Bilirubin AST ALT Alkaline Phosphatase Total Protein Albumin Triglycerides Cholesterol LDL Cholesterol Direct HDL Direct TSH Quality VTE Prophylaxis VTE prophylaxis: pharmacologic ordered (Continue home Xarelto.)
--- NOTE | 2024-10-29 16:25 | P.DS_ITS ---
DS: Admitting Diagnosis Discharge Date 10/30/24 Admitting Diagnosis COPD exacerbation Acute on chronic respiratory failure with hypoxia hypercapnia Type 2 diabetes mellitus with hyper glycemia Immuno compromised patient DS: Discharge Diagnosis Discharge Diagnosis (1) Pseudomonas pneumonia: Code(s): J15.1 - Pneumonia due to Pseudomonas Status: Acute (2) COPD exacerbation: Code(s): J44.1 - Chronic obstructive pulmonary disease with (acute) exacerbation Status: Acute (3) Acute on chronic respiratory failure with hypoxia and hypercapnia: Code(s): J96.21 - Acute and chronic respiratory failure with hypoxia; J96.22 - Acute and chronic respiratory failure with hypercapnia Status: Acute (4) Dysphagia: Code(s): R13.10 - Dysphagia, unspecified Status: Acute (5) Type 2 diabetes mellitus with hyperglycemia, with long-term current use of insulin: Code(s): E11.65 - Type 2 diabetes mellitus with hyperglycemia; Z79.4 - long-term (current) use of insulin Status: Acute (6) Immunocompromised patient: Code(s): D84.9 - Immunodeficiency, unspecified Status: Acute (7) Malnutrition of moderate degree: Code(s): E44.0 - Moderate protein-calorie malnutrition Status: Acute DS: Summary Hospital Course Reason for hospitalization: COPD exacerbation Acute on chronic respiratory failure with hypoxia hypercapnia Type 2 diabetes mellitus with hyper glycemia Immuno compromised patient Hospital Course: This is 58 year old male who presented to the hospital with acute worsening shortness of breath. Workup in the hospital included a chest CT which shown the extensive irregular right apical consolidation with areas of cavitation versus bronchiectasis or possible necrotic change, multiple additional areas of irregular consolidation and/or nodularity throughout the lungs, multiple additional areas of irregular consolidation and or nodularity throughout the lungs, large loose stable from prior exam but with focal worsening at the left lung base. Chest x-ray showed COPD with stable extensive right apical consolidation and scarring pleural thickness, stable mild interstitial prominent left lung base. Initial white blood cell count 27.1, hemoglobin 10.9, blood sugars 234-270, alkaline phosphate 154. Sputum culture obtained and pending. Previous sputum cultures showing Pseudomonas aeruginosa. Patient was started on cefepime and then transitioned to Cipro. We will continue to watch this sputum culture as this can take upwards of 21 days according to [facility]. He is stable for discharge at this time. He will need to follow up with his supervisor riprap placing in 1-2 weeks. He would benefit from an allergy test if he has not had this previously. Final diagnosis: Acute on chronic respiratory failure with hypoxia and hypercapnia, COPD exacerbation, Pseudomonas pneumonia Status at Discharge Cognitive/behavioral status at discharge: Alert oriented x4 Functional status at discharge: independent ambulation Overall status at discharge: patient is progressing back to baseline Time Spent with Patient Time attestation: Total time spent providing and/or coordinating discharge services: Time spent: Greater than 30 minutes Exam Narrative: General: In no acute distress Cardiac: Normal S1 and S2. No murmur, gallops or friction rubs, peripheral pulses intact. Respiratory: Lungs clear to auscultation, diminished in bases, no adventitious lung sounds, currently on room air Gastrointestinal: soft, non-distended, non-tender, normoactive bowel sounds. : voiding without difficulty. Neuro: Alert and oriented x4 DS: Data Data Completed and Pending Completed studies during hospitalization: Pending at discharge Chest x-ray Chest CT Pending studies at discharge: Sputum culture 10/26/24 10:00 Surgical [PTH] Routine Labs on day of discharge: Labs from last 24 hours 10/29/24 10/29/24 10/29/24 11:50 08:19 06:16 WBC 13.1 H RBC 3.02 L Hgb 10.4 L Hct 31.5 L MCV 104.3 H MCH 34.4 H MCHC 33.0 RDW 14.4 Plt Count 371 MPV 9.6 Sodium 137 Potassium 3.8 Chloride 104 Carbon Dioxide 29 Anion Gap 4 BUN 36 H Creatinine 1.00 Estim Creat Clear Calc 59 Estimated GFR > 60 Glucose 172 H POC Capillary Glucose 222 H 172 H Hemoglobin A1c Calcium 8.6 Total Bilirubin 0.3 AST 26 ALT 22 Alkaline Phosphatase 98 Total Protein 7.0 Albumin 3.4 L LDL Cholesterol Direct TSH 10/29/24 10/28/24 10/28/24 03:39 20:11 16:54 WBC RBC Hgb Hct MCV MCH MCHC RDW Plt Count MPV Sodium Potassium Chloride Carbon Dioxide Anion Gap BUN Creatinine Estim Creat Clear Calc Estimated GFR Glucose POC Capillary Glucose 111 H 224 H 318 H Hemoglobin A1c Calcium Total Bilirubin AST ALT Alkaline Phosphatase Total Protein Albumin LDL Cholesterol Direct TSH 10/28/24 14:16 WBC RBC Hgb Hct MCV MCH MCHC RDW Plt Count MPV Sodium Potassium Chloride Carbon Dioxide Anion Gap BUN Creatinine Estim Creat Clear Calc Estimated GFR Glucose POC Capillary Glucose Hemoglobin A1c 6.4 H Calcium Total Bilirubin AST ALT Alkaline Phosphatase Total Protein Albumin LDL Cholesterol Direct 59 TSH 0.191 L Preliminary micro results at discharge 10/25/24 21:00 Sputum Culture - Preliminary Sputum Procedures/Treatments: None Discharge Plan Discharge Attending physician on discharge: Osito Carlos Consulting providers: Raymon Lambert Discharging Clinician: Kimberly Santa Anticipated Discharge Date/Time: 10/30/24 08:11 Patient Disposition: Home, Self-Care Activity: as tolerated Diet: as tolerated Discharge Instructions: * Continue Cipro for next 5 days. * Finish Steroid taper as directed * Follow up with primary care doctor in 2 weeks. * You would benefit from allergy testing, talk this over with your supervisor riprap placing Dr. Del Valle. Follow up with him in 2 weeks. Phone number listed below. [phone] Specialty: Pulmonology Office Address: [address] [place] [address] [address] Add'l Address Info: [place] [address] Patient Instructions: Antibiotic Form, Rivaroxaban (By mouth), Heart Failure (DC), How to Stop Smoking (DC) Patient Language: Romanian Stand Alone Forms: General Discharge Information Follow-up/Referrals: Kirt Lindsay DO [Primary Care Provider] - 2 Weeks Discharge Medications: New sucralfate 100 mg/mL Suspension 1,000 mg PO ACHS Qty: 300 0RF ciprofloxacin HCl [Cipro] 500 mg tablet 500 mg PO Q12H Qty: 10 0RF prednisone 10 mg tablet 10 mg PO DAILY Qty: 18 0RF Rx Instructions: Take 30 mg (3 tabs) daily for next 3 days, start tomorrow Then decrease to 20 mg (2 tabs) for next 3 days, Then decrease to 10 mg (1 tab) daily for next 3 days Then discontinue Continued Xarelto 20 mg tablet 20 mg PO QAM Rx Instructions: must administer with evening meal gabapentin [Neurontin] 300 mg capsule 300 mg PO QID cyanocobalamin (vitamin B-12) 1,000 mcg Tablet 1,000 mcg PO DAILY pantoprazole 40 mg tablet,delayed release (DR/EC) 40 mg PO Q12H nicotine 21 mg/24 hr Patch 24 Hour 1 patch TRANSDERMAL DAILY clofazimine 50 mg Capsule 100 mg PO DAILY metoprolol succinate 25 mg tablet extended release 24 hr 12.5 mg PO DAILY ondansetron 4 mg tablet,disintegrating 4 mg PO Q8H PRN (Reason: Nausea And Vomiting) omega-3 acid ethyl esters [Lovaza] 1 gram Capsule 1 cap PO DAILY cholecalciferol (vitamin D3) 25 mcg (1,000 unit) Tablet 50 mcg PO DAILY guaifenesin [Mucinex] 600 mg Tablet Extended Release 12hr 600 mg PO Q12H Jardiance 10 mg tablet 10 mg PO DAILY Trelegy Ellipta 200-62.5-25 mcg blister with device 1 inh INHALATION DAILY atorvastatin [Lipitor] 40 mg tablet 40 mg PO HS Rx Instructions: LAST REFILL UNTIL SEEN albuterol sulfate 2.5 mg /3 mL (0.083 %) solution for nebulization 2.5 mg inhalation Q6H PRN (Reason: Shortness Of Breath) albuterol sulfate 90 mcg/actuation HFA aerosol inhaler 1 puff INHALATION Q4-6H PRN (Reason: Shortness Of Breath Or Wheezing) voriconazole 200 mg tablet 200 mg PO Q12H acyclovir 400 mg tablet 400 mg PO TID Qty: 90 0RF clopidogrel 75 mg tablet 75 mg PO DAILY Qty: 90 0RF insulin lispro [Humalog KwikPen Insulin] 100 unit/mL insulin pen 5 - 10 unit SUBCUT TIDWM Qty: 15 0RF montelukast [Singulair] 10 mg tablet 10 mg PO HS Qty: 30 0RF mycophenolate mofetil 500 mg tablet 1,000 mg PO Q12H Qty: 10 0RF Rx Instructions: Please call your Oncology to send prescription for this medication and adjust the dose tacrolimus [Prograf] 0.5 mg capsule 0.5 mg PO EVERY OTHER DAY Qty: 30 0RF Date of admission: 10/25/24 15:24 Primary Care Provider: Kirt Lindsay Admitting Provider: Grecia Clifton Attending physician on admission: Kimberly Santa Condition: Improved Quality VTE Prophylaxis VTE prophylaxis: pharmacologic ordered (Continue home Xarelto.) Hospitalist MIPS Heart Failure (Exclusion) Patient has history of Heart Transplant or Left Ventricular Assistive Device?: No IF YES, STOP HERE Heart Failure (Qualifier) Patient has current or prior documentation of LVEF less than or equal to 40%, or mod/servere depressed LVSF?: No IF NO, STOP HERE
[2024-10-29] MEDS: RIVAROXABAN 20 MG TABLET PO (16:42)
[2024-10-29 16:45] LABS: Glucose Point of Care 306 mg/dl (65-105)
[2024-10-29 21:46] LABS: Glucose Point of Care 105 mg/dl (65-105)
--- NOTE | 2024-10-29 22:01 | PC.NURSE ---
Manager Protein arrived at shift change, patient was refusing discharge , stating he felt dinner food was stuck somewhere in throat. No distress noted, breathing and all vitals WNL. Hospitalist made aware and discharge canceled for this evening. Manager Protein will continue to monitor.
[2024-10-29] MEDS: ATORVASTATIN 40 MG TABLET PO (23:55)
[2024-10-29] MEDS: MONTELUKAST SODIUM 10 MG TABLET PO (23:55)
[2024-10-30 02:50] VITALS: PULSE 77; RESP 18
[2024-10-30] MEDS: IPRATROPIUM 0.5 MG/ALBUTEROL SULFATE 2.5 MG AMPUL.NEB 3 ML INHALATION ×2 (02:55→07:01)
[2024-10-30 03:00] VITALS: PULSE 75; RESP 18
[2024-10-30] MEDS: SUCRALFATE SUSP 100 MG/ML 10 ML UDC 1000 MG PO ×2 (05:21→10:55)
[2024-10-30 05:54] LABS: Hematocrit 34.9 % (42.0-52.0); Hemoglobin 11.4 g/dL (14.0-18.0); Mean Corpuscular HGB Conc 32.7 g/dl (32-36); Mean Corpuscular Hemoglobin 35.3 pg (26-34); Mean Platelet Volume 10.1 fl (7.4-10.4); Platelet Count Result 383 k/mm3 (150-375); Red Blood Count 3.23 M/mm3 (4.6-6.20); Red Cell Distribution Width 14.8 % (11.5-14.5); White Blood Count 16.7 K/mm3 (4.5-10.0)
[2024-10-30 06:00] VITALS: BP 141/72; PULSE 68; RESP 18; TEMP 36.6; O2SAT 94
[2024-10-30 06:03] LABS: Alanine Aminotransferase 47 U/L (6-50); Alkaline Phosphatase 122 U/L (38-126); Anion Gap 7 mmol/L (4-12); Aspartate Amino Transferase 52 U/L (17-59); Bilirubin,Total 0.5 mg/dL (0.2-1.3); Blood Urea Nitrogen 41 mg/dL (9-20); Carbon Dioxide 28 mmol/L (22-30); Chloride 101 mmol/L (98-107); Estimated CRCL calculation 82 ml/min; Estimated Glomerular Filt Rate > 60; Glucose 185 mg/dL (65-110); Potassium 3.8 mmol/L (3.4-5.0); Sodium 136 mmol/L (137-145)
[2024-10-30 07:00] VITALS: PULSE 67; RESP 18; O2SAT 99
[2024-10-30] MEDS: FLUTICASONE/UMECLIDIN/VILANTER 200-62.5-25 MCG ELLIPTA 1 PUFF INHALATION ×2 (07:01)
[2024-10-30 07:10] VITALS: PULSE 70; RESP 18
--- NOTE | 2024-10-30 08:08 | P.PNIM_ITS ---
Progress Note: A&P Assessment and Plan (1) Pseudomonas pneumonia: Code(s): J15.1 - Pneumonia due to Pseudomonas Status: Acute Assessment and Plan: Patient last treated at [facility] of cavitary lesions and refractory infection was positive for Mycobacterium avium and Stenotrophomonas patient received IV azithromycin, FM albuterol and Amikacin last sputum here at [facility] grew Pseudomonas resistant to Levaquin 07/23/2024 time of transfer was never treated for a Pseudomonas at [place] * WBC trending down * sputum culture pending * continue cefepime pending culture * Last sputum culture showed a Pseudomonas which was read resistant to Levaquin * Continue prednisone (2) COPD exacerbation: Code(s): J44.1 - Chronic obstructive pulmonary disease with (acute) exacerbation Status: Acute Assessment and Plan: Patient states he had been out of his inhalers and nebulizers for the last 2 weeks has had increased worsening shortness of breath patient is still currently smoking * Continue nebulizer breathing treatments * Chest x-ray/Chest CT reviewed stable from previous * incentive spirometry while awake. 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 (3) Acute on chronic respiratory failure with hypoxia and hypercapnia: Code(s): J96.21 - Acute and chronic respiratory failure with hypoxia; J96.22 - Acute and chronic respiratory failure with hypercapnia Status: Acute Assessment and Plan: * Continue BiPAP at night (4) Dysphagia: Code(s): R13.10 - Dysphagia, unspecified Status: Acute Assessment and Plan: * EGD report shows severe gastritis * continue with PPI * Continue Carafate * GI has signed off (5) Type 2 diabetes mellitus with hyperglycemia, with long-term current use of insulin: Code(s): E11.65 - Type 2 diabetes mellitus with hyperglycemia; Z79.4 - senior living (current) use of insulin Status: Acute Assessment and Plan: * Blood sugars ranging 154-258 * Hgb A1C 6.3 * Accu checks AC/HS * High-dose SSI ordered * hypoglycemic protocol in place * Diabetic diet ordered (6) Immunocompromised patient: Code(s): D84.9 - Immunodeficiency, unspecified Status: Acute Assessment and Plan: * 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 Workup in the hospital included a chest CT which shown the extensive irregular right apical consolidation with areas of cavitation versus bronchiectasis or possible necrotic change, multiple additional areas of irregular consolidation and/or nodularity throughout the lungs, multiple additional areas of irregular consolidation and or nodularity throughout the lungs, large loose stable from prior exam but with focal worsening at the left lung base. Chest x-ray showed COPD with stable extensive right apical consolidation and scarring pleural thickness, stable mild interstitial prominent left lung base. Initial white blood cell count 27.1, hemoglobin 10.9, blood sugars 234-270, alkaline phosphate 154. Sputum culture obtained and pending. Previous sputum cultures showing Pseudomonas aeruginosa. Currently on Cefepime. Subjective: Patient denies any new complaints overnight. Labs and imaging reviewed. Review of Systems Review of Systems: 12 systems were reviewed with pertinent positives and negatives per HPI. Except as documented in the HPI, all other systems were reviewed and are negative. Exam Narrative: General: In no acute distress Cardiac: Normal S1 and S2. No murmur, gallops or friction rubs, peripheral pulses intact. Respiratory: Lungs clear to auscultation, diminished in bases, no adventitious lung sounds, currently on room air Gastrointestinal: soft, non-distended, non-tender, normoactive bowel sounds. : voiding without difficulty. Neuro: Alert and oriented x4 Objective Data Vital Signs Vital Signs: Vital Signs - 24 hr 10/29/24 08:45 10/29/24 14:00 10/29/24 14:11 Temperature 97.2 F L Pulse Rate 69 78 Respiratory Rate 16 18 Blood Pressure 136/84 Pulse Oximetry 94 Oxygen Delivery Room Air Oxygen Flow Rate 10/29/24 14:20 10/29/24 20:38 10/29/24 22:39 Temperature 97 F L Pulse Rate 76 80 77 Respiratory Rate 18 18 18 Blood Pressure 115/51 L Pulse Oximetry 96 Oxygen Delivery Oxygen Flow Rate 10/29/24 22:45 10/29/24 22:51 10/30/24 02:50 Temperature Pulse Rate 75 77 Respiratory Rate 18 18 Blood Pressure Pulse Oximetry 98 Oxygen Delivery Nasal Cannula Oxygen Flow Rate 2.5 10/30/24 03:00 10/30/24 06:00 10/30/24 07:00 Temperature 97.8 F Pulse Rate 75 68 67 Respiratory Rate 18 18 18 Blood Pressure 141/72 H Pulse Oximetry 94 99 Oxygen Delivery Nasal Cannula Oxygen Flow Rate 2 10/30/24 07:00 10/30/24 07:10 Temperature Pulse Rate 67 70 Respiratory Rate 18 18 Blood Pressure Pulse Oximetry Oxygen Delivery Oxygen Flow Rate Intake/Output Intake/Output: Intake & Output 10/27/24 10/28/24 10/29/24 10/30/24 23:59 23:59 23:59 23:59 Intake Total 2019 3270 1760 550 Output Total 3000 1800 3500 Balance -980 1470 -1740 550 Meds/Results Medications: Active Medications Generic Name Dose Route Start Last Admin Trade Name Freq PRN Reason Stop Dose Admin Acyclovir 400 mg 10/23/24 09:00 10/29/24 16:42 Acyclovir 400 Mg Tablet PO 400 mg TID ROSA MARIA Administration Albuterol/Ipratropium 3 ml 10/23/24 08:00 10/30/24 07:01 Ipratropium 0.5 Mg/Albuterol Sulfate 2.5 Mg Ampul.Neb 3 Ml INHALATION 3 ml Q6HRT ROSA MARIA Administration Atorvastatin Calcium 40 mg 10/23/24 21:00 10/29/24 23:55 Atorvastatin 40 Mg Tablet PO 40 mg HS ROSA MARIA Administration Ciprofloxacin 500 mg 10/30/24 09:00 Ciprofloxacin 500 Mg Tab PO Q12HR ROSA MARIA Clopidogrel Bisulfate 75 mg 10/23/24 09:00 10/29/24 08:35 Clopidogrel Bisulfate 75 Mg Tablet PO 75 mg DAILY ROSA MARIA Administration Cyanocobalamin 1,000 mcg 10/23/24 09:00 10/29/24 08:34 Cyanocobalamin 1,000 Mcg Tablet PO 1,000 mcg DAILY ROSA MARIA Administration Dextrose 12.5 gm 10/23/24 08:01 Dextrose 50% 25 Gm/50 Ml Syringe IV PUSH PRN PRN Hypoglycemia Protocol Empagliflozin 10 mg 10/23/24 09:00 10/29/24 08:35 Empagliflozin 10 Mg Tablet PO 10 mg DAILY ROSA MARIA Administration Fish Oil 1 gm 10/23/24 09:00 10/29/24 08:35 Bruno 3 Polyunsat Fatty Acids 1 Gm Cap PO 1 gm DAILY ROSA MARIA Administration Fluticasone/Umeclidinium/Vilanterol 1 puff 10/23/24 08:00 10/30/24 07:01 Fluticasone/Umeclidin/Vilanter 200-62.5-25 Mcg Ellipta INHALATION 1 puff DAILYRT ROSA MARIA Administration Gabapentin 300 mg 10/23/24 09:00 10/29/24 23:59 Gabapentin 300 Mg Capsule PO 300 mg QID ROSA MARIA Administration Glucagon 1 mg 10/23/24 08:01 Glucagon For Inj 1 Mg Vial IM PRN PRN Hypoglycemia Protocol Glucose 15 gm 10/23/24 08:01 Glucose Oral Gel 15 Gm Of Glucse In 37.5 Gm Tube PO PRN PRN Hypoglycemia Protocol Guaifenesin 600 mg 10/23/24 09:00 10/29/24 23:55 Guaifenesin 12 Hr 600 Mg Tabcr PO 600 mg Q12HR ROSA MARIA Administration Dextrose 1,000 mls @ 100 mls/hr 10/23/24 08:01 Dextrose 5% 1,000 Ml IVPB PRN PRN Hypoglycemia Protocol Insulin Aspart 4 - 8 units 10/24/24 08:00 10/29/24 17:31 Insulin Aspart (*Bkc) 100 Units/Ml SUB-Q 6 units TIDWM ROSA MARIA Administration Protocol Insulin Glargine 12 units 10/28/24 22:40 10/29/24 20:46 Insulin Glargine (*Bkc) 100 Units/Ml SUB-Q Not Given HS ROSA MARIA Melatonin 10 mg 10/23/24 22:55 10/28/24 20:57 Melatonin 5 Mg Tablet PO 10 mg HS PRN Administration Insomnia Metoprolol Succinate 12.5 mg 10/23/24 09:00 10/29/24 08:35 Metoprolol Succinate Ext Rel 12.5 Mg Tabcr PO 12.5 mg DAILY ROSA MARIA Administration Montelukast Sodium 10 mg 10/23/24 21:00 10/29/24 23:55 Montelukast Sodium 10 Mg Tablet PO 10 mg HS ROSA MARIA Administration Mycophenolate Mofetil 1,000 mg 10/23/24 09:00 10/29/24 23:55 Mycophenolate Mofetil 250 Mg Capsule PO 1,000 mg Q12HR ROSA MARIA Administration Nicotine 1 patch 10/23/24 09:00 10/29/24 08:35 Nicotine (*Pbkc) 21 Mg Patch TRANSDERM 1 patch DAILY ROSA MARIA Administration Ondansetron HCl 4 mg 10/23/24 03:12 Ondansetron Inj 4 Mg/2 Ml Vial IV PUSH Q4H PRN Nausea Pantoprazole Sodium 40 mg 10/23/24 09:00 10/29/24 23:55 Pantoprazole 40 Mg Tablet PO 40 mg Q12HR ROSA MARIA Administration Prednisone 30 mg 10/30/24 08:00 Prednisone 10 Mg Tablet PO DAILY@0800 ROSA MARIA Rivaroxaban 20 mg 10/23/24 17:00 10/29/24 16:42 Rivaroxaban 20 Mg Tablet PO 20 mg DAILY@1700 ROSA MARIA Administration Sucralfate 1,000 mg 10/26/24 16:30 10/30/24 05:21 Sucralfate Susp 100 Mg/Ml 10 Ml Udc PO 1,000 mg ACHS ROSA MARIA Administration Tacrolimus 0.5 mg 10/23/24 09:00 10/29/24 08:35 Tacrolimus 0.5 Mg Capsule PO 0.5 mg Q48HR ROSA MARIA Administration Vitamin D 2,000 units 10/23/24 09:00 10/29/24 08:35 Cholecalciferol 1,000 Units Tablet PO 2,000 units DAILY ROSA MARIA Administration Voriconazole 200 mg 10/23/24 09:00 10/29/24 23:55 Voriconazole 200 Mg Tablet PO 200 mg Q12HR ROSA MARIA Administration Radiology Results: ITS Impressions Chest CT 10/23/24 06:04 Impression: Extensive irregular right apical consolidation with areas of cavitation versus bronchiectasis or possibly necrotic change are similar to prior exam. Multiple additional areas of irregular consolidation and/or nodularity throughout the lungs, largely stable from prior exam, but with focal worsening at the left lung base. Vascular fact chronic postinflammatory change with additional new infection or atelectasis or scarring at the left lung base. Clinical correlation advised. Underlying advanced emphysema. Chest X-Ray 10/23/24 06:15 Impression: No interval change. COPD with stable extensive right apical consolidation and scarring/pleural thickening. Additional focal airspace opacity peripheral right midlung. Stable mild interstitial prominence left lung base, nonspecific. Labs Labs: Laboratory Results - last 24 hr 10/29/24 10/29/24 10/29/24 08:19 11:50 16:42 WBC RBC Hgb Hct MCV MCH MCHC RDW Plt Count MPV Sodium Potassium Chloride Carbon Dioxide Anion Gap BUN Creatinine Estim Creat Clear Calc Estimated GFR Glucose POC Capillary Glucose 172 H 222 H 306 H Calcium Total Bilirubin AST ALT Alkaline Phosphatase Total Protein Albumin 10/29/24 10/30/24 20:45 05:21 WBC 16.7 H RBC 3.23 L Hgb 11.4 L Hct 34.9 L MCV 108.0 H MCH 35.3 H MCHC 32.7 RDW 14.8 H Plt Count 383 H MPV 10.1 Sodium 136 L Potassium 3.8 Chloride 101 Carbon Dioxide 28 Anion Gap 7 BUN 41 H Creatinine 0.70 Estim Creat Clear Calc 82 Estimated GFR > 60 Glucose 185 H POC Capillary Glucose 105 Calcium 9.0 Total Bilirubin 0.5 AST 52 ALT 47 Alkaline Phosphatase 122 Total Protein 8.0 Albumin 4.0 Quality VTE Prophylaxis VTE prophylaxis: pharmacologic ordered (Continue home Xarelto.)
[2024-10-30 08:57] LABS: Glucose Point of Care 149 mg/dl (65-105)
[2024-10-30] MEDS: GABAPENTIN 300 MG CAPSULE PO (09:06)
[2024-10-30] MEDS: OMEGA 3 POLYUNSAT FATTY ACIDS 1 GM CAP PO (09:06)
[2024-10-30] MEDS: CIPROFLOXACIN 500 MG TAB PO (09:06)
[2024-10-30] MEDS: PANTOPRAZOLE 40 MG TABLET PO (09:07)
[2024-10-30] MEDS: NICOTINE (*PBKC) 21 MG PATCH 1 PATCH TRANSDERM (09:07)
[2024-10-30] MEDS: CLOPIDOGREL BISULFATE 75 MG TABLET PO (09:07)
[2024-10-30] MEDS: predniSONE 10 MG TABLET 30 MG PO (09:07)
[2024-10-30] MEDS: METOPROLOL SUCCINATE EXT REL 12.5 MG TABCR PO (09:07)
[2024-10-30] MEDS: CHOLECALCIFEROL 1,000 UNITS TABLET 2000 UNITS PO (09:07)
[2024-10-30] MEDS: ACYCLOVIR 400 MG TABLET PO (09:07)
[2024-10-30] MEDS: CYANOCOBALAMIN 1,000 MCG TABLET 1000 MCG PO (09:08)
[2024-10-30] MEDS: VORICONAZOLE 200 MG TABLET PO (09:08)
[2024-10-30] MEDS: guaiFENesin 12 HR 600 MG TABCR PO (09:08)
[2024-10-30] MEDS: EMPAGLIFLOZIN 10 MG TABLET PO (09:08)
[2024-10-30] MEDS: mycophenolate mofetiL 250 MG CAPSULE 1000 MG PO (10:29)
== END 2024-10-30 10:55 | disposition home or self-care (01) | DRG 178 ==
LOC: ANHED 00:14 → ANHIMU 04:24 → ANH3MED 16:53
PROVIDERS: Internal Medicine Gastroenterology; Nurse Practitioner Family; Admitting Provider Internal Medicine; Emergency Provider Physician Assistant; PCP Internal Medicine; Visit Provider Nurse Practitioner Acute Care
PROC: 0DJ08ZZ Inspection of Upper Intestinal Tract, Via Natural or Artificial Opening Endoscopic (ICD-10-PCS; principal; 2024-10-26 12:30)
DX: J15.1 Pneumonia due to Pseudomonas (principal); C95.90 Leukemia, unspecified not having achieved remission; J44.1 Chronic obstructive pulmonary disease with (acute) exacerbation; D84.821 Immunodeficiency due to drugs; D89.813 Graft-versus-host disease, unspecified; Z94.81 Bone marrow transplant status; J44.0 Chronic obstructive pulmonary disease with (acute) lower respiratory infection; E44.0 Moderate protein-calorie malnutrition; I25.10 Atherosclerotic heart disease of native coronary artery without angina pectoris; E11.65 Type 2 diabetes mellitus with hyperglycemia; E11.42 Type 2 diabetes mellitus with diabetic polyneuropathy; E78.5 Hyperlipidemia, unspecified; K20.80 Other esophagitis without bleeding; K31.89 Other diseases of stomach and duodenum; R13.10 Dysphagia, unspecified; T50.905A Adverse effect of unspecified drugs, medicaments and biological substances, initial encounter; F32.A Depression, unspecified; Z20.822 Contact with and (suspected) exposure to COVID-19; Z99.81 Dependence on supplemental oxygen; Z79.01 Long term (current) use of 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; Z86.718 Personal history of other venous thrombosis and embolism; Z86.711 Personal history of pulmonary embolism; I25.2 Old myocardial infarction; Z95.5 Presence of coronary angioplasty implant and graft; Z72.0 Tobacco use
CPT/HCPCS: 36415; 36600; 71045; 71260; 80053; 80061; 82805; 82948; 83036; 83880; 84443; 84484; 85018; 85025; 85027; 87070; 87186; 87205; 87637; 88305; 93005; 94002; 94640; 96365; 96367; 96375; 99285; A9270; G0378; J0456; J0692; J0696; J1815; J2003; J2704; J2919; J7120; J7512; J7517; Q9967

== ENCOUNTER 2024-11-15 11:52 | Emergency (ER) | payer MEDICARE, MEDICAID, SELFPAY ==
[2024-11-15] VITALS (9 sets, daily range): BP systolic 103–132; BP diastolic 75–105; PULSE 67–99; RESP 15–19; TEMP 36.3; O2SAT 100
--- NOTE | 2024-11-15 12:26 | ECG_ITS ---
Test Date: 2024-11-15 12:37:09 Measurements Intervals [place] Rate: 93 P: 88 MO: 142 QRS: 115 QRSD: 84 T: 88 QT: 330 QTc: 411 Interpretive Statements SINUS RHYTHM POSSIBLE RIGHT ATRIAL ENLARGEMENT [0.25mV P WAVE] RIGHT VENTRICULAR HYPERTROPHY [SOME/ALL OF: PROMINENT R IN V1, LATE TRANSITION, RAD, ASYA, SSS] POSSIBLE ANTERIOR MYOCARDIAL INFARCTION , PROBABLY OLD [30 ms Q WAVE IN V3/V4, OR R < 0.2 mV IN V4] ABNORMAL ECG Electronically Signed On 11-15-2024 13:50:31 CLINICAL SERVICES DIRECTOR by Mark Simmons M.D.
--- NOTE | 2024-11-15 12:44 | ED.GENADULT ---
HPI - General Adult General Chief complaint: Abdominal Pain Stated complaint: there's food stuck in my throat Time Seen by Provider: 11/15/24 12:16 Source: patient, RN notes reviewed and old records reviewed Mode of arrival: ambulatory Limitations: no limitations History of Present Illness HPI narrative: THis is a 59 year old male with history of chronic respiratory failure on 3 L NC oxygen, leukemia who presents for evaluation of a food bolus. HE states he was eating chicken yesterday when he felt it get stuck. He states he feels like it is stuck at epigastrium. He denies abdominal pain. He reports he is unable to eat, or drink without vomiting . He reports he is unable to tolerate his secretions as well.He denies any worsening shortness of breath. Related Data Home Medications ?Medication ?Instructions ?Recorded ?Confirmed ?Last Taken ?Type rivaroxaban 20 mg tablet (Xarelto) 20 mg PO QAM 02/06/23 10/23/24 10/21/24 History gabapentin 300 mg capsule 300 mg PO QID 07/22/24 10/23/24 10/21/24 History (Neurontin) albuterol sulfate 90 mcg/actuation 1 puff inhalation Q4-6H PRN 10/23/24 10/23/24 Unknown History aerosol inhaler Shortness Of Breath Or Wheezing atorvastatin 40 mg tablet (Lipitor) 40 mg PO HS 10/23/24 10/23/24 10/21/24 History cholecalciferol (vitamin D3) 25 50 mcg PO DAILY 10/23/24 10/23/24 10/21/24 History mcg (1,000 unit) tablet clofazimine 50 mg capsule 100 mg PO DAILY 10/23/24 10/23/24 10/21/24 History cyanocobalamin (vitamin B-12) 1,000 mcg PO DAILY 10/23/24 10/23/24 10/21/24 History 1,000 mcg tablet empagliflozin 10 mg tablet 10 mg PO DAILY 10/23/24 10/23/24 10/21/24 History (Jardiance) fluticasone fur. 200 mcg-umeclid 1 inh inhalation DAILY 10/23/24 10/23/24 10/22/24 09:00 History 62.5 mcg-vilant 25 mcg inhalat.powder (Trelegy Ellipta) guaifenesin 600 mg tablet, 600 mg PO Q12H 10/23/24 10/23/24 10/21/24 History extended release 12 hr (Mucinex) metoprolol succinate 25 mg 12.5 mg PO DAILY 10/23/24 10/23/24 10/21/24 History tablet,extended release 24 hr nicotine 21 mg/24 hr daily 1 patch transdermal DAILY 10/23/24 10/23/24 Unknown History transdermal patch omega-3 acid ethyl esters 1 gram 1 cap PO DAILY 10/23/24 10/23/24 10/21/24 History capsule (Lovaza) ondansetron 4 mg disintegrating 4 mg PO Q8H PRN Nausea And Vomiting 10/23/24 10/23/24 Unknown History tablet pantoprazole 40 mg tablet,delayed 40 mg PO Q12H 10/23/24 10/23/24 Unknown History release voriconazole 200 mg tablet 200 mg PO Q12H 10/23/24 10/23/24 10/21/24 History Allergies Allergy/AdvReac Type Severity Reaction Status Date / Time adhesive tape AdvReac Unknown PAPER Verified 10/23/24 05:58 TAPE,REDNESS AND IRRITATION PMF Past Medical History Medical History Pill esophagitis Peyronie's disease CAD (coronary artery disease) Infectious disease of immune system (~10/02/23) ST elevation (STEMI) myocardial infarction (12/30/22) Chronic anticoagulation Immunocompromised patient Patient on anti rejection medications. Positive nasal culture for methicillin resistant Staphylococcus aureus Deep venous thrombosis Insulin dependent type 2 diabetes mellitus Chronic respiratory failure with hypoxia On 5 liters nasal cannula at nighttime. 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 Peripheral neuropathy Pulmonary emboli Hyperlipidemia Hyperglycemia Surgical History Surgical History Status post cataract extraction of both eyes with insertion of intraocular lens History of heart artery stent 12/30/2022 100% occlusion mid RCA with drug-eluting stent, left coronary system with [id number] disease History of stem cell transplant History of orthopedic surgery Left tibia liz placement Family History Family History Mother Acute myocardial infarction, Onset Age: 42 Father COPD (chronic obstructive pulmonary disease) Diabetes mellitus Alcohol abuse Social History Social History Social History: Surrogate medical decision maker: Lissy Kaiser, friend/roommate. Code status: Full code. Years smoked: 44 Smoking status: Current some day smoker Tobacco type: cigarettes Smoking end date: 08/07/22 Additional smoking assessment comments: on nicotine patches, states he is currently on patches Alcohol intake: never Substance use: never Substance use type: does not use Do You Feel Safe in your Home?: Yes Lack of Transportation: No Lack of Food: Never True Current Housing: I Have Housing Concerned About Future Housing: No Difficulty Paying Gas/Electric Bills: YES Difficulty Paying for Meds: No Currently Unemployed: No Education: High School Diploma/GED Difficulty w/ Childcare or Family Care: No Living arrangements: with friend(s) Additional living arrangements comments: He lives with his roommate in [place]. Occupation/Education: unemployed Spiritual care concerns: No Agree to blood products: Yes Exam Const: General: alert and ill appearing chronically Nutritional Appearance: thin Orientation/consciousness: patient oriented x3 HENMT: Head: normal to inspection Eyes: EOM: EOMs intact bilaterally Resp: Effort & Inspection: normal respiratory effort Auscultation: clear to auscultation bilaterally Cardio: Rate: regular rate Rhythm: regular rhythm Heart sounds: no murmurs GI: GI Palp: Yes Soft to palpation, No Tenderness to palpation present (GI), No Guarding due to palpation present (GI) and No Rigid due to palpation Auscultation: normal bowel sounds Skin: General skin exam: normal color Rashes: no rashes Neuro: General: patient oriented x3 and moves all extremities Course Reevaluation(s) Reevaluation #1: Patient was given glucagon 1 mg but still unable to eat or drink. Vomited after drinking water. Date: 11/15/24 Time: 15:30 Consultations Consultation #1: I spoke with GI Dr. Trevino who accepts patient to [facility] . I Spoke with EDP in [facility] ER. Date: 11/15/24 Time: 15:45 Vital Signs Vital signs: Vital Signs Temperature 97.3 F L 11/15/24 11:55 Pulse Rate 93 11/15/24 11:55 Respiratory Rate 16 11/15/24 11:55 Blood Pressure 125/105 H 11/15/24 11:55 Pulse Oximetry 100 11/15/24 11:55 Oxygen Delivery Nasal Cannula 11/15/24 11:55 Oxygen Flow Rate 3 11/15/24 11:55 Temperature 97.3 F L 11/15/24 11:55 Pulse Rate 95 11/15/24 16:00 Respiratory Rate 16 11/15/24 16:00 Blood Pressure 132/75 11/15/24 15:46 Pulse Oximetry 100 11/15/24 16:00 Oxygen Delivery Nasal Cannula 11/15/24 12:00 Oxygen Flow Rate 3 11/15/24 12:00 Medical Decision Making Medical Records Medical records reviewed: Yes I reviewed the external patient's medical records. Vital Signs Vital Signs: Vital Signs Temperature 97.3 F L 11/15/24 11:55 Pulse Rate 93 11/15/24 11:55 Respiratory Rate 16 11/15/24 11:55 Blood Pressure 125/105 H 11/15/24 11:55 Pulse Oximetry 100 11/15/24 11:55 Oxygen Delivery Nasal Cannula 11/15/24 11:55 Oxygen Flow Rate 3 11/15/24 11:55 Temperature 97.3 F L 11/15/24 11:55 Pulse Rate 95 11/15/24 16:00 Respiratory Rate 16 11/15/24 16:00 Blood Pressure 132/75 11/15/24 15:46 Pulse Oximetry 100 11/15/24 16:00 Oxygen Delivery Nasal Cannula 11/15/24 12:00 Oxygen Flow Rate 3 11/15/24 12:00 Lab Data Lab results reviewed: Yes I reviewed the patient's lab results. 11/15/24 12:57 11/15/24 12:57 Labs: Lab Results 11/15/24 Range/Units 12:57 WBC 7.8 (4.5-10.0) K/mm3 RBC 3.58 L (4.6-6.20) M/mm3 Hgb 12.8 L (14.0-18.0) g/dL Hct 39.1 L (42.0-52.0) % MCV 109.2 H (80-100) fl MCH 35.8 H (26-34) pg MCHC 32.7 (32-36) g/dl RDW 15.3 H (11.5-14.5) % Plt Count 311 (150-375) k/mm3 MPV 10.1 (7.4-10.4) fl Immature Gran % (Auto) 0.3 (0-0.5) % Neut % (Auto) 49.2 (45.5-73.1) % Lymph % (Auto) 35.9 (18.3-44.2) % [place] % (Auto) 9.7 H (2.6-8.5) % Eos % (Auto) 4.3 (0-4.4) % Baso % (Auto) 0.6 (0.2-1.2) % Lymph # (Auto) 2.78 (0.9-3.2) K/mm3 [place] # (Auto) 0.8 H (0.1-0.6) K/mm3 Eos # (Auto) 0.3 (0-0.3) K/mm3 Baso # (Auto) 0.1 (0.0-0.1) K/mm3 Abs Immat Gran (auto) 0.02 (0.00-0.031) K/mm3 Absolute Neuts (auto) 3.8 (1.3-6.7) K/mm3 Absolute Nucleated RBC 0.000 (0.0-0.012) K/mm3 Nucleated RBC % 0.0 (0.0-0.2) % Platelet Estimate Adequate (Adequate) Anisocytosis 1+ Schistocytes None seen PT 12.1 (11.1-14.7) Seconds INR 0.9 APTT 35.0 (22.3-36.8) Seconds Sodium 138 (137-145) mmol/L Potassium 4.5 (3.4-5.0) mmol/L Chloride 100 (98-107) mmol/L Carbon Dioxide 37 H (22-30) mmol/L Anion Gap 1 L (4-12) mmol/L BUN 20 D (9-20) mg/dL Creatinine 0.60 L (0.7-1.3) mg/dL Estim Creat Clear Calc 95 ml/min Estimated GFR > 60 (59 - ) Glucose 152 H (65-110) mg/dL Calcium 9.6 (8.4-10.2) mg/dL Magnesium 1.7 (1.6-2.3) mg/dL Total Bilirubin 0.8 (0.2-1.3) mg/dL AST 36 (17-59) U/L ALT 76 H (6-50) U/L Alkaline Phosphatase 180 H (38-126) U/L Total Protein 8.0 (6.3-8.2) g/dL Albumin 4.1 (3.5-5.1) g/dL Lipase 43 (23-300) U/L Critical Care Time Critical Care Time Critical Care Time: Yes Total Critical Care Time: 35 Discharge Plan Discharge Clinical Impression: Food impaction of esophagus Patient Disposition: Acute Care Hospital Condition: Stable Instructions: Antibiotic Form Patient Language: Indonesian Prescriptions: No Action Xarelto 20 mg tablet 20 mg PO QAM Rx Instructions: must administer with evening meal gabapentin [Neurontin] 300 mg capsule 300 mg PO QID cyanocobalamin (vitamin B-12) 1,000 mcg Tablet 1,000 mcg PO DAILY pantoprazole 40 mg tablet,delayed release (DR/EC) 40 mg PO Q12H nicotine 21 mg/24 hr Patch 24 Hour 1 patch TRANSDERMAL DAILY clofazimine 50 mg Capsule 100 mg PO DAILY metoprolol succinate 25 mg tablet extended release 24 hr 12.5 mg PO DAILY ondansetron 4 mg tablet,disintegrating 4 mg PO Q8H PRN (Reason: Nausea And Vomiting) omega-3 acid ethyl esters [Lovaza] 1 gram Capsule 1 cap PO DAILY cholecalciferol (vitamin D3) 25 mcg (1,000 unit) Tablet 50 mcg PO DAILY guaifenesin [Mucinex] 600 mg Tablet Extended Release 12hr 600 mg PO Q12H Jardiance 10 mg tablet 10 mg PO DAILY Trelegy Ellipta 200-62.5-25 mcg blister with device 1 inh INHALATION DAILY atorvastatin [Lipitor] 40 mg tablet 40 mg PO HS Rx Instructions: LAST REFILL UNTIL SEEN albuterol sulfate 90 mcg/actuation HFA aerosol inhaler 1 puff INHALATION Q4-6H PRN (Reason: Shortness Of Breath Or Wheezing) voriconazole 200 mg tablet 200 mg PO Q12H sucralfate 100 mg/mL Suspension 1,000 mg PO ACHS Qty: 300 0RF ciprofloxacin HCl [Cipro] 500 mg tablet 500 mg PO Q12H Qty: 10 0RF prednisone 10 mg tablet 10 mg PO DAILY Qty: 18 0RF Rx Instructions: Take 30 mg (3 tabs) daily for next 3 days, start tomorrow Then decrease to 20 mg (2 tabs) for next 3 days, Then decrease to 10 mg (1 tab) daily for next 3 days Then discontinue acyclovir 400 mg tablet 400 mg PO TID Qty: 90 0RF clopidogrel 75 mg tablet 75 mg PO DAILY Qty: 90 0RF insulin lispro [Humalog KwikPen Insulin] 100 unit/mL insulin pen 5 - 10 unit SUBCUT TIDWM Qty: 15 0RF montelukast [Singulair] 10 mg tablet 10 mg PO HS Qty: 30 0RF mycophenolate mofetil 500 mg tablet 1,000 mg PO Q12H Qty: 10 0RF Rx Instructions: Please call your Oncology to send prescription for this medication and adjust the dose tacrolimus [Prograf] 0.5 mg capsule 0.5 mg PO EVERY OTHER DAY Qty: 30 0RF albuterol sulfate 2.5 mg /3 mL (0.083 %) solution for nebulization 2.5 mg inhalation Q6H PRN (Reason: Shortness Of Breath) Qty: 180 0RF Follow-up/Referrals: Kirt Lindsay, [Primary Care Provider] -
[2024-11-15 13:02] LABS: Basophils Absolute Auto 0.1 K/mm3 (0.0-0.1); Basophils Percent Auto 0.6 % (0.2-1.2); Eosinophils Absolute Auto 0.3 K/mm3 (0-0.3); Eosinophils Percent Auto 4.3 % (0-4.4); Hematocrit 39.1 % (42.0-52.0); Hemoglobin 12.8 g/dL (14.0-18.0); Immature Granulocyte Absolute 0.02 K/mm3 (0.00-0.031); Immature Granulocyte Percent A 0.3 % (0-0.5); Lymphocytes Absolute Auto 2.78 K/mm3 (0.9-3.2); Lymphocytes Percent Auto 35.9 % (18.3-44.2); Mean Corpuscular HGB Conc 32.7 g/dl (32-36); Mean Corpuscular Hemoglobin 35.8 pg (26-34); Mean Corpuscular Volume 109.2 fl (80-100); Mean Platelet Volume 10.1 fl (7.4-10.4); Monocytes Absolute Auto 0.8 K/mm3 (0.1-0.6); Monocytes Percent Auto 9.7 % (2.6-8.5); Neutrophils Absolute Auto 3.8 K/mm3 (1.3-6.7); Neutrophils Percent Auto 49.2 % (45.5-73.1); Platelet Count Result 311 k/mm3 (150-375); Red Blood Count 3.58 M/mm3 (4.6-6.20); Red Cell Distribution Width 15.3 % (11.5-14.5); White Blood Count 7.8 K/mm3 (4.5-10.0)
[2024-11-15 13:12] LABS: Alanine Aminotransferase 76 U/L (6-50); Albumin Level 4.1 g/dL (3.5-5.1); Alkaline Phosphatase 180 U/L (38-126); Anion Gap 1 mmol/L (4-12); Aspartate Amino Transferase 36 U/L (17-59); Bilirubin,Total 0.8 mg/dL (0.2-1.3); Blood Urea Nitrogen 20 mg/dL (9-20); Calcium 9.6 mg/dL (8.4-10.2); Carbon Dioxide 37 mmol/L (22-30); Chloride 100 mmol/L (98-107); Estimated CRCL calculation 95 ml/min; Estimated Glomerular Filt Rate > 60; Glucose 152 mg/dL (65-110); Lipase 43 U/L (23-300); Magnesium 1.7 mg/dL (1.6-2.3); Potassium 4.5 mmol/L (3.4-5.0); Sodium 138 mmol/L (137-145)
[2024-11-15 13:14] LABS: INR 0.9; Prothrombin Time 12.1 Seconds (11.1-14.7)
[2024-11-15 13:23] LABS: Anisocytosis 1+; Platelet Estimate Adequate (Adequate); Schistocytes None Seen
[2024-11-15] MEDS: SODIUM CHLORIDE 0.9% IV 500 ML 999 ML IV CONT (14:37)
[2024-11-15] MEDS: GLUCAGON FOR INJ 1 MG VIAL IV PUSH (14:37)
--- NOTE | 2024-11-15 16:01 | PC.NURSE ---
report given to BECKI Turner at [facility] ER
--- NOTE | 2024-11-15 16:17 | PC.NURSE ---
[facility] ems arrives at 1610 to transfer pt. pt leaves on stretcher with belongings, chart, and on 3L O2
--- OUTSIDE RECORDS SUMMARY | 2024-11-22 10:43 | XMS_ITS | Clinical Summary ---
Author Organization [facility] Address [address] [place] [address] Care Team Providers Care Gluer Machine Setup Operator Name Role Phone Josué Del Valle MD PhD Unavailable [phone] Kirt Lindsay DO Primary Care Provider [phone] Cal Carranza DO Unavailable [phone] Halie Khan MD Unavailable [phone] Wilfred Kinsey MD Unavailable Allergies Active Allergy Reactions Criticality Noted Date Comments Adhesive Redness Low burn Medications omega-3 fatty acids (LOVAZA) 1 gram capsule Take 1 capsule (1 g total) by mouth daily 2020 Active oxygen Administer 2 L/min into each nostril nightly Nightly and PRN Active cholecalciferol (VITAMIN D-3) 25 mcg (1,000 unit) tablet Take 2 tablets (2,000 Units total) by mouth every morning 2020 Active flash glucose scanning reader (FreeStyle Evaristo 2 [place] [facility] [place] blood glucose continuously 1 each 1 2022 Active flash glucose sensor (FreeStyle Evaristo 2 Sensor) kitIndications:Type 2 diabetes mellitus with hyperosmolarity 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, with long-term current use of insulin ([facility]) Change sensor every 14 days 2 kit 2023 Active cyanocobalamin (Vitamin B-12) 1,000 mcg tablet Take 1 tablet (1,000 mcg total) by mouth every morning 2023 Active guaiFENesin ER (MUCINEX) 600 mg 12 hr tablet Take 1 tablet (600 mg total) by mouth 2 (two) times a day Active albuterol 2.5 mg /3 mL (0.083 %) nebulizer solution Take 3 mL (2.5 mg total) by nebulization every 6 (six) hours as needed for wheezing or shortness of breath Active Xarelto 20 mg tabletIndications:Acut e myeloblastic leukemia, in remission ([facility]) TAKE ONE TABLET BY MOUTH DAILY AT 9 AM 30 tablet 11 2023 Active tacrolimus 0.5 mg immediate-release capsuleIndications:Acu te myeloblastic leukemia, in remission ([facility]) TAKE ONE CAPSULE BY MOUTH EVERY OTHER DAY 15 capsule 2023 Active acyclovir (ZOVIRAX) 400 mg tabletIndications:Prop hylaxis, Medical Take 1 tablet (400 mg total) by mouth 3 (three) times a day 2023 Active empagliflozin (JARDIANCE) 10 mg tabletIndications:hear t failure associated with type 2 diabetes mellitus Take 1 tablet (10 mg total) by mouth daily 30 tablet 2023 Active metoprolol XL (TOPROL-XL) 25 mg extended release tablet Take 0.5 tablets (12.5 mg total) by mouth daily 15 tablet 2023 Active clopidogreL (PLAVIX) 75 mg tablet Take 1 tablet (75 mg total) by mouth daily 30 tablet 2023 Active atorvastatin (LIPITOR) 40 mg tabletIndications:AML (acute myeloid leukemia) in remission ([facility]),Type 2 diabetes mellitus with hyperglycemia, with long-term current use of insulin ([facility]),Hrunj-uklkrb-dze t disease ([facility]),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[facility]),Pure hypercholesterolemia TAKE ONE TABLET (40MG) BY MOUTH DAILY AT 5 PM LAST REFILL UNTIL SEEN 30 tablet 11 2023 Active mycophenolate mofetil (CELLCEPT) 500 mg tabletIndications:Haim i-kvjbjv-ysyv disease, unspecified (HCC),Acute myeloblastic leukemia, in remission (HCC) TAKE TWO TABLETS BY MOUTH TWICE DAILY 180 tablet 11 2023 Active INV-[facility] clofazimine, LAMPRENE, (2017-11-147) 50 mg capsule capsule Take 2 capsules (100 mg total) by mouth daily 2023 Active fluticasone-umeclidin- vilanter (Trelegy Ellipta) 200-62.5-25 mcg inhalerIndications:Chr onic obstructive pulmonary disease, unspecified (HCC) INHALE 1 PUFF BY MOUTH DAILY (BULK) 1 each 11 2023 Active montelukast (SINGULAIR) 10 mg tabletIndications:Acut e myeloblastic leukemia, in remission (HCC) Take 1 tablet (10 mg total) by mouth nightly 30 tablet 3 2023 Active ondansetron ODT (ZOFRAN-ODT) 4 mg disintegrating tablet Take 1 tablet (4 mg total) by mouth every 8 (eight) hours as needed for nausea or vomiting 20 tablet 2024 Active omeprazole (PriLOSEC) 40 mg capsule Take 1 capsule (40 mg total) by mouth 2 (two) times a day 60 capsule 2024 Active oxyCODONE (ROXICODONE) 5 mg immediate release tabletIndications:Pain Take 1 tablet (5 mg total) by mouth every 4 (four) hours as needed for pain 20 tablet 2024 Active sucralfate (CARAFATE) 1 gram tablet Take 1 tablet (1 g total) by mouth 4 (four) times a day (with meals and nightly) 11/18 Active isavuconazonium (Cresemba) 186 mg capsuleIndications:Pro phylaxis, Medical Take 2 capsules (372 mg total) by mouth daily 2024 Active gabapentin (NEURONTIN) 300 mg capsuleIndications:Acu te myeloblastic leukemia, in remission (HCC) Take 1 capsule (300 mg total) by mouth 4 (four) times a day as needed (pain) 2024 Active azithromycin (ZITHROMAX) 500 mg tabletIndications:Myco bacteriosis Take 1 tablet (500 mg total) by mouth daily 2024 Active ethambutoL (MYAMBUTOL) 400 mg tabletIndications:Myco bacteriosis Take 3 tablets (1,200 mg total) by mouth daily 2024 Active insulin aspart (NovoLOG) 100 unit/mL (3 mL) pen for injection Resume home sliding scale 2024 Active montelukast (SINGULAIR) 10 mg tablet Take 1 tablet (10 mg total) by mouth nightly 11/02 Discontinued( Reorder) nicotine (NICODERM CQ) [address] 1 patch on the skin daily 30 patch 1 11/18 Discontinued( Stop Taking at Discharge) gabapentin (NEURONTIN) 300 mg capsuleIndications:Acu te myeloblastic leukemia, in remission (HCC) TAKE ONE CAPSULE BY MOUTH FOUR TIMES DAILY @ [id number] M 120 capsule 11 11/18 Discontinued sodium chloride 3 % nebulizer solutionIndications:ai rway clearanc Take 4 mL by nebulization 2 (two) times a day Use albuterol in nebulizer first, then saline, then Aerobika 240 mL 3 11/04 ondansetron ODT (ZOFRAN-ODT) 4 mg disintegrating tablet Take 1 tablet (4 mg total) by mouth every 8 (eight) hours as needed for nausea or vomiting 20 tablet 11/[address] (PROTONIX) 40 mg EC tablet TAKE 1 TABLET(40 MG) BY MOUTH TWICE DAILY 180 tablet 11/18 Discontinued( Stop Taking at Discharge) Active Problems Patient Care Coordination No te Formatting of this note is d ifferent from the original. BMT Inpatient Care Coordination Overview Diagnosis AML Floor [address] Treatment Plan Clinical Trial Reason for Admission Food impaction of esophagus Transplant/IEC Planning BMT/IEC Plan S/p sib allo 11/09/2009- gvhd to eyes HLA typing/IDMs Insurance Approvals/Issues Discharge Planning Anticipated Discharge Date 08/03 Patient Education Completed Issue to be Resolved Before Discharge Discharge Disposition Home Requests Sent to Case Management and/or Medical Assistants CM: for IV amicasin Post-Discharge Follow-Up Living Situation/Distance from [facility] [place] (local) Caregiver Lab/Transfusion Frequency Phone: Fax: Venous Access & Care peripheral Local Oncologist Contact Phone: Fax: Post-Discharge Office Visit (H30) CASSANDRA 12/09 w/ UTILITY PIPE LAYER Jame Miscellaneous Notes: Problem Noted Date Diagnosed Date 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 CAD (coronary artery disease) 11/16/2024 Assessment & Plan (11/18/2024 10:42 AM ONLINE FACILITATOR): S/p PCI to RCA in 2022 -cont plavix, atorvastatin Food bolus obstruction of intestine 11/15/2024 Hypocalcemia 07/25/2024 Assessment & Plan (07/25/2024 12:05 PM CDT): Ca 8.1. Due to hypoalbumin, Ca is wnl with hypoalbuminemia correction. -continue to monitor and treat as indicated History of esophagitis 07/24/2024 Assessment & Plan (07/24/2024 12:18 AM CDT): - Continue protonix. Has a chronic globus sensation and mech soft diet at baseline per pt. Appears was seen by speech during last OSH stay Acute on chronic respiratory failure (CMS/HCC) 0 07/23/2024 Assessment & Plan (07/26/2024 11:51 AM CDT): Hx Mycoplasma avium and cavitary lung disease, hx Stenotrophamonas PNA 05/2024, HFpEF, COPD on chronic O2. Presenting for 4d of worsening SOB. Presented to [facility] ED 07/19 for SOB and treated for COPD exac with pred course. Presented to [place] on 07/21 for worsening SOB. CXR and CTPE with cf worsening mulifocal PNA prompting transfer. Was needing bipap but now has been weaned to home oxygen requirements. Ddx includes infectious, COPD, CHF, GVHD though was remote. Has had ~5d of steroids without much improvement. No wheezing on exam. Echo 07/24 with worsening LVEF to 30%. RVP neg. - Nominated OSH CT with reading: c/w cavitary mycobacterial disease superimposed on emphysema appear worse than 05/28, Lower lob mucus plugging with nodularity suspicious for aspiration pneumonia. - seen by speech at OSH, okay for soft diet - sputum culture ordered, has not been obtained - on home oxygen requirements - ID: more likely progression of MAC, COPD, and CHF over new infection. See separate problems for further management. 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 On NTM therapy since 07/07/24 NTMLD regimen as of 08/18/24: ---Azithromycin 500 mg PO daily [07/07/24- ---Ethambutol 1200 mg PO daily [07/07/24- ---Amikacin 700 mg IV on MWF [07/22/24- ?] -Baker ct 11/16 showed non TB mycobacterial infection in lung, slightly improved since jul. -It appears patient was getting Amikacin infusions with ID; last note said to continue azithromycin and ethambutol; however these are not on patient's dispense report and he was not a great historian regarding his ID meds. Also he was supposed to receive clofazimine via mail which he says he has not. -In addition; he was previously on voriconazole ppx however this was stopped due to QTc (switched to isavuconazole) -- however voriconazole is on his dispense report 10/29/24; so we need to clarify which antifungal he should be on as well - hold these ID medications; recommend sending staff message to his ID doctor (Kimberly Frazier, [place]) regarding his actual current regimen - alternatively can discuss with pharmacy to confirm Assessment & Plan (07/26/2024 11:52 AM CDT): - Dx 05/2024 admission with cavitary RUL mass. S/p BAL. Cx with M avium - follows with Dr. Nova in ED - currently on Azithro/Ethambutol. Plan has been for amikacin MWF x6 weeks and clofazimine when able - ID consulted: increase azith to 500, continue ethambutol, start amikacin MWF (likely 4-6 weeks), amikacin trough after 3rd dose - consulted audiology - check EKG iso h/o QTc prolongation, check mag daily Assessment & Plan (07/08/2024 4:01 PM CDT): Cavitary RUL disease with M avium. Susceptibilities are pending. Spoke with laboratory who states that these will take ~3wks to return once submitted. Organism is being subcultured now with expectation of submitting this to [facility] lab on ~07/13. Beginning empiric therapy therapy pending susceptibilities given these delays and severity of disease. Avoiding rifamycin because of need for voriconazole prophylaxis. Evaluations and interventions as noted above. Follow up in 1 month here (or in combined ID/Pulm NTM clinic depending on scheduling availability). Assessment & Plan (06/19/2024 6:09 PM CDT): Immunocompromised man with history of COPD, numerous respiratory infections with progressive scarring of the lungs on imaging, and low body mass index; all of which are risk factors for development of non tuberculosis mycobacterial disease of the lung. AFB smear was positive after BAL. PCR for Mycobacterium tuberculosis was negative. Progression of disease on lung imaging is concerning for a rapidly growing mycobacterium (abscessus, chelonae, fortuitum). He has no signs of more disseminated disease at this time. If there is a rapidly growing mycobacterium, would expect cultures to start growing within the next week. However, it may take several weeks for susceptibility testing. While NTMB is a series disease, there is no need for emergent treatment. We recommend this patient follow-up in our NTMB clinic. There is no need to remain hospitalized for this condition. He does not need to quarantine at home, and there is no risk of spreading this to his cohabitants. Recommendations: - ID will follow-up culture and susceptibility testing - ID will set up follow-up in our NTMB clinic (Dr. Pinzon) Protein-calorie malnutrition, severe (CMS/HCC) 0 06/16/2024 Assessment & Plan (11/17/2024 12:22 PM ONLINE FACILITATOR): RD following Assessment & Plan (07/24/2024 1:02 PM CDT): BMI 18.14, appears malnourished. RD to evaluate with recommendations Right sided lung infiltrate 06/15/2024 Assessment & Plan (06/18/2024 12:55 PM CDT): Likely secondary to non-TB mycobacterial infection and Steno -Infectious work up with 06/16 BAL with + AFB, negative TB PCR, Steno+, RVP neg -F/u sensitivities -Receiving Vancomycin (06/16-06/18, MRSA neg), Zosyn (06/16- ), and Azithromycin (06/16- ) Assessment & Plan (06/16/2024 2:33 PM CDT): Concerning for infectious pneumonia with radiographic appearance and recent MSSA bacteremia Status post bronch with BAL 06/16 and doing well post-procedure Pulmonary will sign off. I defer antimicrobials to primary service so initiation of broad-spectrum antibiotics including anaerobic coverage is reasonable pending results of bronchoscopy Please call if other issues/questions during hospitalization He does not require outpatient pulmonary follow up with us after discharge Assessment & Plan (06/16/2024 3:01 PM CDT): Persistent/worsening lung infiltrate since 04/10,a after being treated for multifocal pneumonia with underlying h/o AlloSCT and GVHD on immunosuppressants. Differentials include cryptogenic pna, but can also be related to Pulmonary GVHD ( though taking Cellcept and tacro and unilateral picture favour against worsening Pulmonary GVHD). Other possibility includes pneumonia form Viral bacterial or fungal etiology (given his immunosuppressed status) and malignancy Plan: Follow histo ag/ab, Blast, crypto, aspergillus Ab, MRSA swab Follow RSV Pneumonia PCR Duonebs nebulization QID Pulmonology consultation, and recommendations on steroid dose and imaging if needed and or bronchoscopy. Underwent bronch on 06/16 on which parent material seen concern for infection. Started on broad-spectrum antibiotics with vanco and Zosyn 06/16 COPD with Pulmonary emphysema 06/15/2024 Assessment & Plan (06/18/2024 12:56 PM CDT): H/O COPD with emphysema, continues to smoke. Treat for exacerbation -Continue trelegy ellipta -Duo nebs QID -Continue prednisone 40mg for 5 days and azithromycin 500mg Assessment & Plan (06/15/2024 12:48 PM CDT): H/O COPD with emphysema, continues to smoke. Continue trelegy ellipta or alternative Duo nebs QID Respiratory therapy protocol Acute on chronic hypoxic respiratory failure Assessment & Plan (06/18/2024 12:45 PM CDT): 2/2 mucus plugging, worsening infection vs COPD exacerbation -Transferred to ICU on BiPap for resp distress -Off BiPAP 06/17 am -Currently on NC 2L, titrate to keep sats > 92% -Continue prednisone 40mg PO for 5 days and azithromycin 500mg PO for possible COPD exacerbation -Continue bronchodilators Assessment & Plan (06/15/2024 12:50 PM CDT): Likely in the setting of COPD, H/O PE and now worsening lung disease. Uses 3l of oxygen at rest and uotp 5L on exertion Continue o2 supplementation with goal O2: >90% History of leukemia 04/02/2024 Hypotension 04/02/2024 Multifocal pneumonia 03/28/2024 MSSA bacteremia 03/28/2024 Pericardial effusion 03/28/2024 Hyponatremia 03/28/2024 Dysphagia 02/20/2024 Food impaction of esophagus 02/20/2024 Assessment & Plan (11/18/2024 10:43 AM ONLINE FACILITATOR): After eating chicken/spaghetti on 11/14 felt pressure/stuck sensation in his lower esophagus and was unable to tolerate further PO intake (including liquids). Prior EGDs during a similar presentation showed esophagitis (02/2024) and no food bolus in the esophagus -S/p EGD 11/16, chicken and beans in middle third of esophagus, removed. Had stasis esophagitis. Also nodular mucosa at GEJ, biopsied showing intestinal metaplasia, no dysplasia -high dose PPI BID, caralfate, small bites, esophageal soft diet. -repeat EGD in 3mo to check healing and consider empiric dilation as patient experiences dysphagia intermittently. Possible smooth muscle GVHD causing this problem repeatedly; will try to schedule outpt with Dr. Centeno. CAP (community acquired pneumonia) 02/13/2022 COPD (chronic obstructive pulmonary disease) Assessment & Plan (11/17/2024 12:17 PM ONLINE FACILITATOR): He has Ventolin inhaler, Trelegy inhaler, albuterol inhaler, and Singulair 10 a day. On 3L oxygen at home Biliary sludge 12/20/2021 Overview (12/20/2021): Added automatically from request for surgery [id number] Other osteoporosis without current pathological fracture 11/23/2021 Encounter for removal of biliary stent Overview (10/03/2021): Added automatically from request for surgery [id number] Elevated LFTs 09/08/2021 Assessment & Plan (09/10/2021 9:19 AM CDT): -acute hepatitis panel negative/Improving after ERCP -ERCP findings as above -status post biliary stent placement. -ALk getting worse sent GGT to investigate contributory etiology -monitor LFTs: AST and ALT improving -trend lipase: normalized -IV fluids History of DVT (deep vein thrombosis) 09/08/2021 Assessment & Plan (09/08/2021 12:13 PM CDT): History of PE/DVT -history of DVT 2012, 2017, PE in 2012 -hold Xarelto due to GI bleed History of pulmonary embolism 09/08/2021 Assessment & Plan (07/24/2024 12:13 AM CDT): - DVT and PE in 2013. Had IJ DVT 2018 - Continues on Xarelto Assessment & Plan (09/08/2021 12:16 PM CDT): History of PE/DVT -history of DVT 2012, 2018, PE in 2012 -hold Xarelto due to GI bleed Abdominal pain 09/07/2021 Overview (09/07/2021): Added automatically from request for surgery [id number] Assessment & Plan (07/25/2024 12:01 PM CDT): - Recent hx pancreatitis admission without obvious source. Pain was slowly recurring in the last few days. Lipase was WNL at LFTs wnl at OSH and wnl on repeat here. Improving. - Pain control. - Tolerating mechanical soft diet Upper GI bleed 09/07/2021 Overview (09/07/2021): Added automatically from request for surgery [id number] Assessment & Plan (09/10/2021 9:18 AM CDT): Endoscopy showed nonbleeding duodenal ulcer, esophagitis, coffee-ground like material in the entire stomach. -IV PPI b.i.d. -hold Xarelto -monitor blood counts -H.pylori was not send, ordered another one as positive results confirm the diagnosis regardless of PPI -Will advance diet accordingly: soft mechanical advanced to full for this noon s/p CE/IOL OS 08/01/21 08/02/2021 Assessment & Plan (08/09/2021 10:26 AM CDT): POW #1 s/p CE/PCIOL - Doing well, vision and IOP as expected - Stop ofloxacin - Slow taper of PF given had likely rebound OD. - Reviewed signs/symptoms endophthalmitis, RT/RD; patient to call immediately if any worsening vision, pain, redness, flashes/floaters/curtains - No lifting/bending/swimming. Champagne shield while sleeping, protective eyewear during day. - Restrictions released. - RTC 3 week Assessment & Plan (08/02/2021 8:39 AM CDT): POD #1 s/p CE/PCIOL - Doing well, vision and IOP as expected - Prednisolone QID - Ofloxacin QID - Reviewed signs/symptoms endophthalmitis, RT/RD; patient to call immediately if any worsening vision, pain, redness, flashes/floaters/curtains - No lifting/bending/swimming. Champagne shield while sleeping, protective eyewear during day. - RTC 1 week s/p CE/PCIOL OD 05/12/21 03/30/2021 Overview (03/30/2021): Added automatically from request for surgery [id number] Assessment & Plan (08/09/2021 10:27 AM CDT): POM#3 status post (s/p) cataract extraction (CE)/IOL right eye (OD) 05/12/21 TODAY: -Doing well, central PCO present. 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 -Overall looks quiet Plan: - Continue PF BID x 3 weeks then stop Assessment & Plan (08/02/2021 8:40 AM CDT): POM#3 status post (s/p) cataract extraction (CE)/IOL right eye (OD) 05/12/21 TODAY: -Doing well, BCVA much improved 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 -Overall looks quiet Plan: -Ok to stop Ofloxacin -Decrease PF to BID x 1 month then stop Assessment & Plan (06/14/2021 11:36 AM CDT): POM#1 status post (s/p) cataract extraction (CE)/IOL right eye (OD) 05/12/21 TODAY: -Doing well, BCVA much improved 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 -Overall looks quiet Plan: -Ok to stop Ofloxacin -Start pred forte (PF) taper TIDx 1 week, BID x 1 week, daily x 1week, then stop -Consider cataract extraction (CE)/IOL left eye in near future Assessment & Plan (05/17/2021 1:46 PM CDT): POW1 s/p CE/PCIOL right eye (OD) Dense NS OS Doing well, with less k edema and AC cells Better vision and stable IOP No sig wound edema Start ?? PF QID OD ?? Ofloxacin QID OD ?? [place] QID OD RTC 1 month Assessment & Plan (05/13/2021 8:28 AM CDT): POD1 s/p CE/PCIOL OD Doing well, with moderate k edema and AC cell No sig wound edema Start ?? PF QID OD ?? Ofloxacin QID OD ?? 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 Bronch with BAL growing stenotrophomonas susceptible to minocycline. Infection with this bacteria is often found setting of dysbiosis due to disruption of normal lalito with history of antibiotic exposure. Recommend continuing minocycline for a 10 day course given severity of lung disease. Also being treated with piperacillin-tazobactam. No other organisms identified in BAL, which was done prior to the initiation of antibiotics. It would be reasonable to finish a 5 day course of this antibiotic. Recommendations: - minocycline 10 days (06/16-06/25) - piperacillin-tazobactam 5 days (06/16-06/20) Assessment & Plan (11/26/2019 10:45 AM ONLINE FACILITATOR): POA. Possibly community-acquired and/or 2/[address] Strep pneumoniae pos sputum cx. See SOB problem. Shortness of breath 11/20/2019 Assessment & Plan (11/27/2019 12:14 PM ONLINE FACILITATOR): Concern for poss GVHD and/or poss COPD exacerbation, HF, infection. - Recently admitted to OSH with similar symptoms, discharged on pred taper, home O2. Admitted with increased O2 requirement, increased MILLER. - TTE (09/2019) EF 55%. - RVP neg. Bld Cx NGTD - Rpt TTE w/ EF 65% - CT chest 11/20/19: Scattered tree-in-bud and nodular opacities throughout both lungs suggestive of an acute infectious process. ??Thickened and debris-filled bronchi which are focally worse in the left lower lobe may indicate superimposed aspiration pneumonitis. - Sputum cx 11/21: strep pneumoniae, susceptible to Azithro, Ceftriaxone, pcn, vanc - On Cefe/Vanc (11/20 - 11/27), change to augmentin 11/27 to continue through 12/04 to complete 14-day course - Continue immunosuppresives. - Pulm toilet?? - Walking O2 assessment CHF (congestive heart failure) ([facility]) 020 Assessment & Plan (11/16/2024 3:06 AM ONLINE FACILITATOR): Euvolemic on exam currently; no new SOB - continue metop, jardiance Assessment & Plan (07/26/2024 11:49 AM CDT): TTE 03/2024 with LVEF 50-55%. Pro BNP at OSH >30k. Last adm here 1012. Appears euvolemic. S/p Lasix at OSH and [place] [address] - repeat TTE 07/24: LVEF 30%, moderate global hypokinesis, mild RV enlargement, grade 2 diastolic dysfunction, PA systolic pressure 33, dilated inferior vena cava - BP around 120-80s, HR 80s-90s. - initiate GDMT: carvedilol 3.125 bid, aldactone 25 every day, lasix 20 every day - monitor BP and HR closely, BP soft overnight, hold off on further addition or titration today - if continues to be stable will start low dose lisinopril and further titrations Assessment & Plan (06/18/2024 12:57 PM CDT): TTE: 03/28/24: EF: 50-55%, low normal Systolic function, small pericardial effusion, BNP 1012 -Monitor volume status, appears euvolemic on exam Assessment & Plan (06/16/2024 2:53 PM CDT): TTE: 03/28/24: EF: 50-55%, low normal Systolic function, small pericardial effusion On examination, euvolemic Nt-PROBNP 1012 Assessment & Plan (11/28/2019 10:27 AM ONLINE FACILITATOR): Closely monitor blood sugar to avoid hypoglycemia Assessment & Plan (11/27/2019 1:35 PM ONLINE FACILITATOR): Closely monitor blood sugar to avoid hypoglycemia Assessment & Plan (11/26/2019 5:32 PM ONLINE FACILITATOR): Closely monitor blood sugar to avoid hypoglycemia Assessment & Plan (11/25/2019 4:51 PM ONLINE FACILITATOR): Closely monitor blood sugar to avoid hypoglycemia Assessment & Plan (11/24/2019 4:57 PM ONLINE FACILITATOR): Closely monitor blood sugar to avoid hypoglycemia Assessment & Plan (11/23/2019 2:01 PM ONLINE FACILITATOR): Closely monitor blood sugar to avoid hypoglycemia Assessment & Plan (11/24/2019 10:51 AM ONLINE FACILITATOR): With diastolic dysfunction, new diagnosis. -Continue Lasix. -(11/23) Rpt TTE showed EF 65%, unable to measure PA pressure, normal diastolic function. Peripheral neuropathy 11/20/2019 Assessment & Plan (07/24/2024 12:13 AM CDT): - Continue gabapentin Assessment & Plan (06/16/2024 6:39 PM CDT): Continue gabapentin Assessment & Plan (06/15/2024 1:01 PM CDT): Continue gabapentin Assessment & Plan (02/12/2022 6:44 AM CDT): - Continue home dose gabapentin 300 mg TID Assessment & Plan (11/20/2019 4:17 PM ONLINE FACILITATOR): Continue gabapentin Tobacco abuse 11/20/2019 Assessment & Plan (06/16/2024 6:44 PM CDT): Encourage cessation Assessment & Plan (11/20/2019 4:18 PM ONLINE FACILITATOR): Nicotine patch Depressed mood 11/24/2018 Assessment & Plan (11/24/2018 4:56 PM ONLINE FACILITATOR): With feelings of depressed mood prior to admission. Outpt team with concerns for pt's wellbeing as he was more noncompliant and down over the phone prior to admit. -Consulted [facility] 11/24, will plan to see him on AM of 11/25 at 0900. -Also consulted psychiatry, but felt that counseling service was appropriate first step and would only see him if they recommended pharm therapy. DVT (deep venous thrombosis) ([facility]) 9 Assessment & Plan (11/18/2024 10:42 AM ONLINE FACILITATOR): DVT lower ext 2012, DVT IJ 2017, PE 02/02/2013. - He is on Xarelto 20 mg a day Assessment & Plan (06/18/2024 12:57 PM CDT): DVT lower ext 2012, DVT IJ 2017, PE 02/02/2013. -Continue Xarelto 20 mg a day Assessment & Plan (06/16/2024 2:52 PM CDT): DVT lower ext 2012, DVT IJ 2017, PE 02/02/2013. He remains on Xarelto 20 mg a day (Last dose 06/14). On hold for bronch. Distant hx of DVT/PE. Continue to hold for now till no procedure anticipated Assessment & Plan (02/12/2022 6:46 AM CDT): - History of DVT 2012, 2017, PE??in 2012. He takes Xaralto at home - Continue to take Xaralto 20 mg Po daily. Assessment & Plan (08/17/2021 12:28 PM CDT): 2 events of PE/DVT and only DVT in 2012 and 2017 Resume home Xeralto Assessment & Plan (11/20/2019 3:57 PM ONLINE FACILITATOR): Continue xarelto Assessment & Plan (11/23/2018 11:32 AM ONLINE FACILITATOR): Cont Xarelto. Sinusitis 11/22/2018 Assessment & Plan (11/24/2018 4:48 PM ONLINE FACILITATOR): Chronic issue over last 2 months. -With improved symptoms. Previous to admit, had some frontal sinus pain and subjective fevers -s/p cefe/vanco (11/22-11/24), transitioned to Levaquin for 10d. -Low risk of fungal sinusitis in s/o multiple immunosuppressants, but ENT consulted. Saw no e/o acute sinusitis, bedside scope revealed no c/f fungal infection. Recommended nasal saline irrigations, f/u ENT clinic. -Also with cerumen impaction, and ENT rec disimpaction in clinic. -To note, Sinus CT 11/22 shows maxillary, sphenoid sinusitis. Head CT 11/22 shows no PE-->no pneumonia. COPD with exacerbation ([facility]) 11/22/2018 Assessment & Plan (07/24/2024 1:00 PM CDT): - Hx COPD on trelegy and albuterol at home. Intermittent ongoing smoking - Reports exacerbation starting ~07/19. Now s/p 5d steroids - No wheezing at present - Continue nebs as PRN. Hold further steroids for now Assessment & Plan (02/12/2022 6:45 AM CDT): - Patient is being admitted for COPD exacerbation. On 3-5 L of oxygen at home at baseline - Received prednisone 60 mg and azithromycin once in ED once. Continue albuterol and Atrovent inhaler - Started on ceftriaxone with concern for possible CAP pneumonia. Once symptoms improve can deescalate. - CT chest showed No acute pulmonary embolism. New indeterminate subcentimeter nodule concerning for neoplastic process. Recommend further evaluation with tissue sampling or short-term interval follow-up. Ground glass opacification in the right upper lobe and tree-in-bud nodularity is noted in the bilateral lungs which are favored to be infectious or inflammatory in etiology. Possible mild thickening of the esophagus which may represent esophagitis. Assessment & Plan (09/08/2021 12:12 PM CDT): -history of chronic hypoxic respiratory failure -on 3-5 L of oxygen at home at baseline -O2 requirements at baseline -continue home dose of bronchodilator therapy. Albuterol p.r.n., Trelegy Ellipta -continue home dose of montelukast ?? Assessment & Plan (08/19/2021 9:48 AM CDT): On albuterol prn, trelegy Ellipta and LTOT at 3 lpm via NC at night and during exertion at home RPP is + rhino/entero virus BCx neg UA neg Afebrile here Started 5 days pred 08/17 - DuaNeb Azithromycin and cefepime 08/17 - Mucinex Last TTE from 11/2019 is unremarkable, pt denies any PND, chest pain, + BL le swelling is chronic and probably related to venous insufficiency==> no indication to repeat given improvement in his breathing with the current regimen Much better now Back to baseline O2, on RA at rest and 2-3 lpm at night and during exertion Assessment & Plan (11/20/2019 4:16 PM ONLINE FACILITATOR): Continue inhalers Assessment & Plan (11/23/2018 11:29 AM ONLINE FACILITATOR): Continues to smoke >1 ppd. -Cont steroids at current dose. -Cont Advair diskus BID, cont albuterol inh QID. -Encourage smoking cessation. Cont nicotine patch. Cough 10/17/2018 Pure hypercholesterolemia 08/04/2018 Assessment & Plan (02/12/2022 6:02 AM CDT): - continue home dose atorvastatin 40 mg PO daily Assessment & Plan (01/15/2020 3:22 PM ONLINE FACILITATOR): -LDL at goal -will continue atorvastatin 40 mg daily Assessment & Plan (11/28/2019 10:27 AM ONLINE FACILITATOR): On atorvastatin 40 mg daily Assessment & Plan (11/27/2019 1:35 PM ONLINE FACILITATOR): On atorvastatin 40 mg daily Assessment & Plan (11/26/2019 5:32 PM ONLINE FACILITATOR): On atorvastatin 40 mg daily Assessment & Plan (11/25/2019 4:50 PM ONLINE FACILITATOR): On atorvastatin 40 mg daily Assessment & Plan (11/24/2019 4:57 PM ONLINE FACILITATOR): On atorvastatin 40 mg daily Assessment & Plan (11/23/2019 2:02 PM ONLINE FACILITATOR): On atorvastatin 40 mg daily Assessment & Plan (11/20/2019 4:18 PM ONLINE FACILITATOR): Continue statin Assessment & Plan (08/07/2019 1:35 PM CDT): -LDL at goal -will continue atorvastatin 40 mg daily Assessment & Plan (06/01/2019 4:14 PM CDT): -LDL at goal -will continue atorvastatin 40 mg daily Assessment & Plan (08/04/2018 3:36 PM CDT): -LDL at goal -will continue atorvastatin 40 mg daily Vitamin D deficiency 08/04/2018 Assessment & Plan (08/18/2021 2:04 PM CDT): Apparently has been on 50 units/weeks for a while - will switch to maintenance and check level Assessment & Plan (01/15/2020 3:22 PM ONLINE FACILITATOR): -vitamin D levels still low, unclear compliance -will continue current regimen Assessment & Plan (11/28/2019 10:29 AM ONLINE FACILITATOR): Last vitamin-D level low at 16. Continue vitamin D2 46669 units weekly and vitamin D3 2000 units daily Assessment & Plan (11/27/2019 1:35 PM ONLINE FACILITATOR): Last vitamin-D level low at 16. Continue vitamin D2 09554 units weekly and vitamin D3 2000 units daily Assessment & Plan (11/26/2019 5:32 PM ONLINE FACILITATOR): Last vitamin-D level low at 16. Continue vitamin D2 54602 units weekly and vitamin D3 2000 units daily Assessment & Plan (11/25/2019 4:51 PM ONLINE FACILITATOR): Last vitamin-D level low at 16. Continue vitamin D2 82134 units weekly and vitamin D3 2000 units daily Assessment & Plan (11/24/2019 4:57 PM ONLINE FACILITATOR): Last vitamin-D level low at 16. Continue vitamin D2 08190 units weekly and vitamin D3 2000 units daily Assessment & Plan (11/23/2019 2:02 PM ONLINE FACILITATOR): Last vitamin-D level low at 16. Continue vitamin D2 60393 units weekly and vitamin D3 2000 units daily Assessment & Plan (08/07/2019 1:34 PM CDT): -vitamin D levels improving -will continue current regimen Assessment & Plan (06/01/2019 4:11 PM CDT): -vitamin D levels very low -will order weekly ergocalciferol and ask him to start vitamin D3 2000 IU daily Assessment & Plan (08/04/2018 3:39 PM CDT): -vitamin D level still below normal - I asked him to restart and be compliant with vitamin D3 1000 IU daily AML s/p Allo SCT in 200805/06/2018 Assessment & Plan (11/18/2024 10:41 AM ONLINE FACILITATOR): AML. S/p 7+3 and hidac consolidation x3, decitabine [place] [address] protocol. Had relapse s/p AMD/MEC. 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 -Last seen by Dr. Del Valle 06/12/23, in remission - acyclovir 400 t.i.d and antifungal ppx with voriconazole vs cresemba. Plan med rec w Business Analyst Consultant today Assessment & Plan (06/17/2024 3:28 PM CDT): Follows Dr. Bauman, last seen in clinic on 06/09/2023 -AML diagnosed in 2008 s/p 7+3 and HiDAC consolidation x3 followed by Decitabine maintenance on the [place] 57695 protocol. -Followed by Relapsed disease, status post alloSCT sister 08/27 match D): 11/09/2009. 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 voriconazole 200 b.i.d -BMT following Assessment & Plan (06/15/2024 12:57 PM CDT): Follows Dr. Bauman Last seen in clinic on 06/09/2023 S/pO Allo sibling SCT in 2008 AML diagnosed in 2008 s/p 7+3 and HiDAC consolidation x3 followed by Decitabine maintenance on the [place]GB 32592 protocol. 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 voriconazole 200 b.i.d Assessment & Plan (09/10/2021 9:20 AM CDT): -S/p Busulfan and Cytoxan on the [facility] allogeneic study with his sister, 08/27 match; with day 0 on 11/09/2009??after induction with 7+3 and HiDAC consolidation x3.??Followed by??Decitabine maintenance on the [place]GB 29435 protocol??and relapsed disease, status post AMD/MEC. -??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Most recent BMBx in our records is from 12/12/2017 with neg path and flow -OI prophylaxis, acyclovir Assessment & Plan (08/17/2021 3:45 PM CDT): S/p Busulfan and Cytoxan on the [facility] allogeneic study with his sister, 08/27 match; with day 0 on 11/09/2009 after induction with 7+3 and HiDAC consolidation x3. Followed by Decitabine maintenance on the CALGB 07990 protocol and relapsed disease, status post AMD/MEC. 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 -??Relapsed disease,??status post an allogeneic transplant with busulfan and Cytoxan on the [facility] allogeneic study with his sister, 08/27 match; with day 0 on 11/09/2009.?? - Currently in remission. Follows with Dr. Del Valle - On tacro, cellcept - OI ppx: Cont acyclovir. Added vori and bactrim (pt stated he was no longer taking at home). Assessment & Plan (11/23/2018 11:24 AM ONLINE FACILITATOR): -s/p sibling allo SCT on 11/09/09, now in CR with no e/o recurrence. 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 -Cont OI ppx with Bactrim, acyclovir. Type 2 diabetes mellitus 05/06/2018 Assessment & Plan (11/18/2024 10:43 AM ONLINE FACILITATOR): On lantus/humalog at home (he reports taking 12 units of lantus and SSI) - will give lantus 4 units now + SSI; titrate as needed - continue gabapentin - pt takes tid prn Assessment & Plan (07/26/2024 11:47 AM CDT): reports only a sliding scale at home. Hyperglycemic at OSH with steroid - euglycemic overnights, hyperglycemic during the day - Continue SSI for now per pt request as he believes it will improve now that he is off steroids - strongly consider adding basal/bolus if continues to be hyperglycemic Assessment & Plan (06/17/2024 3:30 PM CDT): -A1c checked 6.7 -NPO, start accuchecks and SSI Q4H Assessment & Plan (06/16/2024 2:51 PM CDT): At home he uses humalog sliding scale only Plan: A1c checked 6.7 Start ISS and adjust according to need Assessment & Plan (02/12/2022 6:02 AM CDT): - Continue Lantus 10 units and Sliding scale for diabetic control. Assessment & Plan (09/09/2021 8:52 AM CDT): Insulin-dependent diabetes mellitus -patient's home doses 15 units of Lantus nightly, 10 units of lispro pre meal and sliding scale insulin. -patient is on mechanical soft diet, dose reduced Lantus to 10 units due to pervious diet; Will increase accordingly -lispro 5 units t.i.d. pre meal -sliding scale insulin. -frequent point of care glucose checks. Assessment & Plan (08/19/2021 9:47 AM CDT): Resume home insulin regimen Will increase his long acting and short acting insulin given worsening glycemia in setting of steroids Assessment & Plan (01/15/2020 3:24 PM ONLINE FACILITATOR): -poorly controlled, exacerbated by prednisone use -Hgb A1C very high; difficult to manage due to noncompliance -prednisone decreased to 10 mg daily -will increase Basaglar to 40 units QAM -will take Ademlog 20 units with meals + ISS -monofilament exam 05/2019: absent sensation in 2nd and 3rd toes of R foot, normal sensation in L foot -no retinopathy, has cataracts -BP at goal Assessment & Plan (11/28/2019 10:29 AM ONLINE FACILITATOR): Patient has uncontrolled type 2 diabetes with an A1c of 13.5%. At home he takes Basaglar 30 units in the morning and NovoLog 10 units with meals. His diabetes control is complicated by high doses of steroids. His prednisone is reduced to 20 mg once daily. Anticipate improved glycemic control with reduced steroids. Over the past 24 hours his blood sugar has ranged 201-312 He received 126 units of insulin yesterday. Discharge Recommendations: - Increase Lantus 40 units at night -> 45U QHS - Humalog 15 units with meals -> 20U TID meals - Discontinue NPH to 15 units with prednisone 20 mg on discharge (to be covered with additional Lantus and Humalog) - HDSSI with meals, bedtime - Carb consistent diet - Continue Humalog 6 units every 6 hours PRN snacks - we have requested follow up with Dr. Elizondo and diabetes education. Assessment & Plan (11/27/2019 1:35 PM ONLINE FACILITATOR): Patient has uncontrolled type 2 diabetes with an A1c of 13.5%. At home he takes Basaglar 30 units in the morning and NovoLog 10 units with meals. His diabetes control is complicated by high doses of steroids. His prednisone is reduced to 20 mg once daily. Anticipate improved glycemic control with reduced steroids. Over the past 24 hours his blood sugar has ranged 201-312 He received 126 units of insulin yesterday. Recommend: - Lantus 40 units at night - Humalog 15 units with meals - NPH to 15 units with prednisone 20 mg - HDSSI with meals, bedtime and 2 am - Carb consistent diet - Continue Humalog 6 units every 6 hours PRN snacks - Please have diabetes education see patient. Discharge: We will see how he does today with this regimen. If he does well, anticipate discharge with: Lantus 40 units daily Humalog 20 units with meals (adding meal time coverage instead of discharging with NPH) Mid dose sliding scale *This regimen is for prednisone 20 mg daily. If the prednisone is changed, he will need to discuss the insulin doses with Dr. Elizondo. I requested follow up with Dr. Elizondo and diabetes education. Assessment & Plan (11/26/2019 5:32 PM ONLINE FACILITATOR): Patient has uncontrolled type 2 diabetes with an A1c of 13.5%. At home he takes Basaglar 30 units in the morning and NovoLog 10 units with meals. His diabetes control is complicated by high doses of steroids. His prednisone is reduced to 20 mg twice daily. Anticipate improved glycemic control with reduced steroids. Over the past 24 hours his blood sugar has ranged 121-312. He received 126 units of insulin yesterday. Recommend: - Lantus 40 units at night - Humalog 15 units with meals - Increase NPH to 15 units with prednisone 20 mg - please hold if prednisone is being held - HDSSI with meals, bedtime and 2 am - Carb consistent diet - Continue Humalog 6 units every 6 hours PRN snacks Discharge: basal/bolus, doses pending. Follows with endocrinology here. Assessment & Plan (11/25/2019 4:50 PM ONLINE FACILITATOR): Patient has uncontrolled type 2 diabetes with an A1c of 13.5%. At home he takes Basaglar 30 units in the morning and NovoLog 10 units with meals. His diabetes control is complicated by high doses of steroids. His prednisone is reduced to 20 mg twice daily. Anticipate improved glycemic control with reduced steroids. Over the past 24 hours his blood sugar has ranged 121-528. He received 187 units of insulin yesterday. His elevated BG overnight was likely from snacking on high carb foods. Recommend: - Lantus 40 units at night - Humalog 15 units with meals - NPH 10 units twice daily to be given WITH prednisone 20 mg - please hold if prednisone is held - HDSSI with meals, bedtime and 2 am - Carb consistent diet - Please add Humalog 6 units every 6 hours PRN snacks Discharge: basal/bolus, doses pending. Follows with endocrinology here. Assessment & Plan (11/24/2019 4:57 PM ONLINE FACILITATOR): Patient has uncontrolled type 2 diabetes with an A1c of 13.5%. At home he takes Basaglar 30 units in the morning and NovoLog 10 units with meals. His diabetes control is complicated by high doses of steroids. His prednisone is reduced to 20 mg twice daily today. Anticipate improved glycemic control with reduced steroids. Over the past 24 hours his blood sugar has ranged 211-473. He received 127 units of insulin yesterday. Recommend: - Lantus 40 units at night - Humalog 15 units with meals - NPH 10 units twice daily to be given WITH prednisone 20 mg - please hold if prednisone is held - HDSSI - Carb consistent diet Discharge: basal/bolus, doses pending. Follows with endocrinology here. Assessment & Plan (11/23/2019 2:01 PM ONLINE FACILITATOR): Patient has uncontrolled type 2 diabetes with an A1c of 13.5%. At home he takes Basaglar 30 units in the morning and NovoLog 10 units with meals. His diabetes control is complicated by high doses of steroids. Today, his prednisone will be decreased to 20 mg twice daily. His blood sugar has been quite elevated to the 400s and started on an insulin drip today. While on high doses of steroids were start with a weight based regimen of around 1 unit/kilogram. We will then add additional NPH coverage for prednisone. Recommend: - NPH 15 units x 1 now and can stop the insulin drip in 2 hours - this will be basal coverage to bridge to Lantus tonight - Lantus 40 units starting tonight - Humalog 15 units with meals - NPH 15 units twice daily to be given WITH prednisone 20 mg - please hold if prednisone is held - HDSSI - Carb consistent diet Discharge: basal/bolus, doses pending. Follows with endocrinology here. Assessment & Plan (11/28/2019 9:33 AM ONLINE FACILITATOR): On basaglar 30 units AM and novolog 10 units TID with meals and SSI at home. No longer taking metformin at home. Follows with endocrine outpatient, however he has missed multiple appointments. - BG >400 on admit (pt stated he did not take his AM insulin). - Required Insulin gtt on 11/23, transitioned to 40U Lantus qHS, 15U NPH w/ steroids, 15U Lispro with meals, HD SSI. - Discharge regimen: 45U lantus qHs + 20U TID AC + HD SSI - Endocrine following, appreciate recs - Hgb A1C 13 on admit. Assessment & Plan (08/07/2019 1:33 PM CDT): -poorly controlled, exacerbated by prednisone use -Hgb A1C very high; difficult to manage due to noncompliance -prednisone remains at 20 mg BID -will increase Basaglar to 30 units QAM -will take Novolog 10 units with meals + ISS -monofilament exam 05/2019: absent sensation in 2nd and 3rd toes of R foot, normal sensation in L foot - no retinopathy, has cataracts -BP at goal Assessment & Plan (06/02/2019 10:52 AM CDT): -poorly controlled, exacerbated by prednisone use -Hgb A1C very high; difficult to manage due to noncompliance -prednisone decreased to 20 mg daily -will start NPH 15 units daily with prednsione -will continue metformin 1000 mg BID -monofilament exam 05/2019: absent sensation in 2nd and 3rd toes of R foot, normal sensation in L foot - no retinopathy, has cataracts -BP at goal Assessment & Plan (11/24/2018 4:59 PM ONLINE FACILITATOR): -Poorly controlled, recently stopped checking glucose as ran out of strip per pt. -HgbA1c 14.2 on 11/23. -At home, was taking metformin 500 mg BID and Novolog pen PRN , and pt states he was not using insulin often. -Recommend increasing metformin 1000 mg BID and prescribing Novolog pen with mid range SSI. Will ask pt to record glucose levels and bring to office when he sees Michaell this month. Set up appt for 12/16/18. States previously he was on Lantus and became hypoglycemic. -In house, metformin on hold, on Lantus 13u daily, Lispro 5 u TID, Lispro SSI. -Consulted diabetes education. Will meet with pt in AM of 11/25. -Prescribed extra Novolog pen, increased dose metformin, pen needles and sent e-script to [facility] in [place] on 11/24. Pt has script for glucose strips waiting there as well. 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 Currently takes tacrolimus 0.5 mg every 48 hours and Cellcept 1000 mg BID. - tacrolimus levels random ordered. Last dose received was 02/10. Patient also takes acyclovir and voriconazole for medical ppx [id number] disease 07/08/2012 Assessment & Plan (06/18/2024 12:56 PM CDT): -Continue cellcept 100mg BID and tacrolimus 0.5 mg every other day. Assessment & Plan (06/15/2024 12:51 PM CDT): Continue cellcept 100mg BID and tacrolimus 0,5 mg every other day. Assessment & Plan (02/12/2022 6:30 AM CDT): - Continue home dose tacrolimus and Cellcept. - Follow tarco level random Assessment & Plan (09/10/2021 9:20 AM CDT): Of the eyes and lung Resume??Cellcept 1 g b.i.d. and tacro 2.5 mg every other day, Tacrolimus level in a.m. normal range Continue PF eye drops Assessment & Plan (08/17/2021 3:50 PM CDT): Of the eyes and lung Resume Cellcept and tactro Continue PF eye drops Assessment & Plan (06/14/2021 11:37 AM CDT): Hx GVHD without current disease activitiy TODAY: -Exam quiet, no new disease activity Plan: -Continue Cellcept 500 BID and tacrolimus 0.5 mg daily Assessment & Plan (11/28/2019 10:27 AM ONLINE FACILITATOR): Prednisone decreased to 20 mg daily Assessment & Plan (11/27/2019 1:32 PM ONLINE FACILITATOR):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 random glucose >/= 200 mg/dl is diagnostic for diabetes. In the absence of unequivocal hyperglycemia, results should be confirmed by repeat testing. The classification and Diagnosis of Diabetes Diabetes Care 2021; 46: S19-S40. Current interpretive data was last revised 2022. Calcium 8.3(L) 8.5 - 10.3 mg/dL [facility] Blood 11/18/2024 2:38 AM ONLINE FACILITATOR 11/18/2024 3:24 AM ONLINE FACILITATOR Narrative [facility] - 11/18/2024 3:55 AM ONLINE FACILITATOR Daily except Saturday and . Morning draw. Josué Del Valle MD PhD LAB BLOOD ORDERABLES Fin al Result Performing Organization Address [facility] Co de Phone Number [facility] [place] [address] * POCT glucose (11/18/2024 12:47 AM ONLINE FACILITATOR) Glucose, POC 125 70 - 199 mg/dL Blood 11/18/2024 12:4 7 AM ONLINE FACILITATOR 11/18/2024 12:47 AM ONLINE FACILITATOR Cruz Redding MD PhD LAB POCT ORDERABLES - DEVICE Final Result Performing Organization Address [facility] de Phone Number [facility] [place] [address] * POCT glucose (11/17/2024 8:11 PM ONLINE FACILITATOR) Glucose, POC 135 70 - 199 mg/dL Blood 11/17/2024 8:11 PM ONLINE FACILITATOR 11/17/2024 8:11 PM ONLINE FACILITATOR Cruz Redding MD PhD LAB POCT ORDERABLES - DEVICE Final Result Performing Organization Address [facility] de Phone Number [facility] [employer] [place] [address] * (ABNORMAL) POCT glucose (11/17/2024 5:32 PM ONLINE FACILITATOR) Glucose, POC 229(H) 70 - 199 mg/dL Blood 11/17/2024 5:32 PM ONLINE FACILITATOR 11/17/2024 5:32 PM ONLINE FACILITATOR Cruz Redding MD PhD LAB POCT ORDERABLES - DEVICE Final Result Performing Organization Address City/[facility] Co de Phone Number [facility] [employer] [place] [address] * POCT glucose (11/17/2024 12:03 PM ONLINE FACILITATOR) Glucose, POC 156 70 - 199 mg/dL Blood 11/17/2024 12:0 3 PM ONLINE FACILITATOR 11/17/2024 12:03 PM ONLINE FACILITATOR Cruz Redding MD PhD LAB POCT ORDERABLES - DEVICE Final Result Performing Organization Address [facility] [place] [address] * POCT glucose (11/17/2024 11:14 AM ONLINE FACILITATOR) Glucose, POC 174 70 - 199 mg/dL Blood 11/17/2024 11:1 4 AM ONLINE FACILITATOR 11/17/2024 11:14 AM ONLINE FACILITATOR us Cruz Redding MD PhD LAB POCT ORDERABLES - DEVICE Final Result Performing Organization Address [facility] Co de Phone Number [facility] [employer] [place] [address] * POCT glucose (11/17/2024 7:19 AM ONLINE FACILITATOR) Glucose, POC 126 70 - 199 mg/dL Blood 11/17/2024 7:19 AM ONLINE FACILITATOR 11/17/2024 7:19 AM ONLINE FACILITATOR Cruz Redding MD PhD LAB POCT ORDERABLES - DEVICE Final Result Performing Organization Address City/[facility]/ZIP Co de Phone Number [facility] [employer] [place] [address] * POCT glucose (11/17/2024 4:32 AM ONLINE FACILITATOR) Glucose, POC 159 70 - 199 mg/dL Blood 11/17/2024 4:32 AM ONLINE FACILITATOR 11/17/2024 4:32 AM ONLINE FACILITATOR Cruz Redding MD PhD LAB POCT ORDERABLES - DEVICE Final Result Performing Organization Address [facility] de Phone Number [facility] Department [place] [address] * POCT glucose (11/17/2024 12:33 AM ONLINE FACILITATOR) Glucose, POC 178 70 - 199 mg/dL Blood 11/17/2024 12:3 3 AM ONLINE FACILITATOR 11/17/2024 12:33 AM ONLINE FACILITATOR Cruz Redding MD PhD LAB POCT ORDERABLES - DEVICE Final Result Performing Organization Address [facility] de Phone Number [facility] Department [place] [address] * eGFR (11/17/2024 12:31 AM ONLINE FACILITATOR) Pathologist [facility] eGFR >90 >=60 mL/min/1. 73 m2 Comment: Interpretive Data Reference Interval Normal ?>/= 90 mL/min/1.73m2 Mildly decreased* ? 60 - 89 mL/min/1.73m2 Mildly to moderately decreased ?45 - 59 mL/min/1.73m2 Moderately to severely decreased ??30 - 44 mL/min/1.73m2 Severely decreased ?15 - 29 mL/min/1.73m2 Kidney Failure ?< 15 ??mL/min/1.73m2 *Relative to young adult level Estimated glomerular filtration rate is determined by the 2020 CKD-EPI equation recommended by the National Kidney Foundation (A Unifying Approach to GFR Estimation: Recommendations of the NKF-ASK Task Force on Reassessing the Inclusion of Race in Diagnosing Kidney Disease, JASN 2020). The CKD-EPI equation should not be used for patients with unstable renal function and has not been validated in children and those over 70. Current interpretive data was last reviewed 2021. Blood 11/17/2024 12:3 1 AM ONLINE FACILITATOR 11/17/2024 12:53 AM ONLINE FACILITATOR us Josué Del Valle MD PhD LAB BLOOD ORDERABLES Fin al Result [facility] Department [place] [address] * (ABNORMAL) Manual Differential (11/17/2024 12:31 AM ONLINE FACILITATOR) Differential Manual [facility] Neutrophil abs 3.4 1.5 - 6.5 K/cumm [facility] Imm gran abs 0.1 0.0 - 0.1 K/cumm [facility] Lymphocyte abs 2.3 0.8 - 3.3 K/cumm [facility] Monocyte abs 0.6 0.2 - 0.8 K/cumm [facility] Eosinophil abs 0.2 0.0 - 0.5 K/cumm [facility] Neutrophil pct 50.9 % [facility] Comment: Interpretive Data Percent cell count reference ranges are not reported, since discordance with absolute values may lead to misinterpretation of CBC data. Current Interpretive Data was last revised on 2018. Lymphocyte pct 35.1 % [facility] Comment: Interpretive Data Percent cell count reference ranges are not reported, since discordance with absolute values may lead to misinterpretation of CBC data. Current Interpretive Data was last revised on 2018. Monocyte pct 9.6 % [facility] Comment: Interpretive Data Percent cell count reference ranges are not reported, since discordance with absolute values may lead to misinterpretation of CBC data. Current Interpretive Data was last revised on 2018. Eosinophil pct 3.5 % [facility] Comment: Interpretive Data Percent cell count reference ranges are not reported, since discordance with absolute values may lead to misinterpretation of CBC data. Current Interpretive Data was last revised on 2018. Promyelocyte pct 0.9 % [facility] RBC morphology Present(A) [facility] Anisocytosis Marked(A) [facility] Macrocytes > 15/HPF(A) [facility] Platelet estimate Adequate [facility] Blood 11/17/2024 12:3 1 AM ONLINE FACILITATOR 11/17/2024 12:49 AM ONLINE FACILITATOR us Josué Del Valle MD PhD LAB BLOOD ORDERABLES Arun tamiko Result - Final [facility] One [facility] Department [place] [address] * (ABNORMAL) CBC without differential (11/17/2024 12:31 AM ONLINE FACILITATOR) WBC 6.6 3.8 - 9.9 K/cumm Hgb 11.6(L) 13.0 - 17.5 g/dL [facility] Hct 35.3(L) 38.9 - 50.3 % [facility] Plt 307 150 - 400 K/cumm [facility] MPV 10.5 9.1 - 12.3 fL [facility] RBC 3.38(L) 4.30 - 5.80 M/cumm [facility] MCV 104.4(H) 81.3 - 96.4 fL [facility] MCH 34.3(H) 27.1 - 33.3 pg [facility] MCHC 32.9 32.3 - 35.7 g/dL [facility] RDW CV 14.7 11.1 - 14.9 % [facility] RDW SD 56.7(H) 35.7 - 48.1 fL [facility] NRBC abs 0.00 0.00 - 0.01 K/cumm [facility] Blood 11/17/2024 12:3 1 AM ONLINE FACILITATOR 11/17/2024 12:49 AM ONLINE FACILITATOR Josué Del Valle MD PhD LAB BLOOD ORDERABLES Fin al Result Performing Organization Address City/[facility] Co de Phone Number [facility] [employer] [place] [address] * Uric acid (11/17/2024 12:31 AM ONLINE FACILITATOR) Uric acid 6.0 3.0 - 8.0 mg/dL Blood 11/17/2024 12:3 1 AM ONLINE FACILITATOR 11/17/2024 12:46 AM ONLINE FACILITATOR us Cruz Redding MD PhD LAB BLOOD ORDERABLE S Final Result Performing Organization Address [facility] [place] [address] * Phosphorus (11/17/2024 12:31 AM ONLINE FACILITATOR) Phosphorus, pl 2.7 2.3 - 4.5 mg/dL Blood 11/17/2024 12:3 1 AM ONLINE FACILITATOR 11/17/2024 12:46 AM ONLINE FACILITATOR Josué Del Valle MD PhD LAB BLOOD ORDERABLES Fin al Result Performing Organization Address [facility] de Phone Number [facility] Department [place] [address] * Magnesium (11/17/2024 12:31 AM ONLINE FACILITATOR) Magnesium 1.9 1.4 - 2.5 mg/dL Blood 11/17/2024 12:3 1 AM ONLINE FACILITATOR 11/17/2024 12:46 AM ONLINE FACILITATOR Josué Del Valle MD PhD LAB BLOOD ORDERABLES Fin al Result Performing Organization Address City/[facility] Co de Phone Number [facility] Department [place] [address] * Lactate dehydrogenase (LD) (11/17/2024 12:31 AM ONLINE FACILITATOR) Pathologist [facility] Lactate dehydrogenase (LDH) 220 100 - 250 Units/L Blood 11/17/2024 12:3 1 AM ONLINE FACILITATOR 11/17/2024 12:46 AM ONLINE FACILITATOR Cruz Redding MD PhD LAB BLOOD ORDERABLE S Final Result Performing Organization Address [facility] Co de Phone Number [facility] [place] [address] * (ABNORMAL) Hemoglobin A1c (11/17/2024 12:31 AM ONLINE FACILITATOR) [facility] Hgb A1C 6.0(H) 4.0 - 5.6 % Estimated Average Glucose 126 mg/dL [facility] Comment: The ADA recommends reporting an estimated Average Glucose (eAG) with all Hemoglobin A1c results using the equation derived from a study of 507 normal and diabetic adults. ??Minority populations were underrepresented and children were not included. ?? (Diabetes Care 2020; 43(S1): S66-S76). ??The eAG is not equivalent to a fasting glucose. Blood 11/17/2024 12:3 1 AM ONLINE FACILITATOR 11/17/2024 12:52 AM ONLINE FACILITATOR Narrative [facility] - 11/17/2024 5:28 PM ONLINE FACILITATOR Reflex Cruz Redding MD PhD LAB BLOOD ORDERABLE S Final Result Performing Organization Address [facility] Co de Phone Number [facility] Department [place] [address] * (ABNORMAL) Basic metabolic panel (11/17/2024 12:31 AM ONLINE FACILITATOR) Pathologist [facility] Sodium 142 135 - 145 mmol/L Potassium, pl 3.9 3.3 - 4.9 mmol/L [facility] Chloride 101 97 - 110 mmol/L [facility] CO2 33(H) 22 - 32 mmol/L [facility] Anion gap 8 2 - 15 mmol/L [facility] BUN 20 6 - 25 mg/dL [facility] Creatinine 0.66(L) 0.80 - 1.30 mg/dL [facility] Glucose 166 70 - 199 mg/dL [facility] Comment: Interpretive Data Fasting glucose >/= 126 mg/dl is diagnostic for diabetes. ?? Fasting is defined as no caloric intake for at least 8 hours. Fasting glucose between 100 mg/dl to 125 mg/dl is diagnostic of prediabetes. In a patient with classic symptoms of hyperglycemia or hyperglycemic crisis, a random glucose >/= 200 mg/dl is diagnostic for diabetes. In the absence of unequivocal hyperglycemia, results should be confirmed by repeat testing. The classification and Diagnosis of Diabetes Diabetes Care 2021; 46: S19-S40. Current interpretive data was last revised 2022. Calcium 9.4 8.5 - 10.3 mg/dL [facility] Blood 11/17/2024 12:3 1 AM ONLINE FACILITATOR 11/17/2024 12:46 AM ONLINE FACILITATOR Narrative [facility] - 11/17/2024 1:32 AM ONLINE FACILITATOR Daily except Saturday and . Morning draw. us Josué Del Valle MD PhD LAB BLOOD ORDERABLES Fin al Result Performing Organization Address City/[facility]/ZIP Co de Phone Number [facility] Department [place] [employer] [place] [address] * (ABNORMAL) POCT glucose (11/16/2024 8:43 PM ONLINE FACILITATOR) [facility] Glucose, POC 231(H) 70 - 199 mg/dL Blood 11/16/2024 8:43 PM ONLINE FACILITATOR 11/16/2024 8:43 PM ONLINE FACILITATOR us Cruz Redding MD PhD LAB POCT ORDERABLES - DEVICE Final Result Performing Organization Address [facility] Co de Phone Number [facility] Department [place] [address] * POCT glucose (11/16/2024 5:06 PM ONLINE FACILITATOR) Glucose, POC 120 70 - 199 mg/dL Blood 11/16/2024 5:06 PM ONLINE FACILITATOR 11/16/2024 5:06 PM ONLINE FACILITATOR us Cruz Redding MD PhD LAB POCT ORDERABLES - DEVICE Final Result [facility] Department [place] [address] * Surgical pathology (11/16/2024 4:53 PM ONLINE FACILITATOR) Tissue (Esophageal biopsy) 11/16/2024 4:53 PM ONLINE FACILITATOR Narrative PATHOLOGY [facility] - 11/17/2024 3:51 PM ONLINE FACILITATOR EPIC results best viewed via link to PDF [facility] [place] [address] Note to Patients: This report may contain a detailed description of human tissue sent by a health care provider to the laboratory for pathologic evaluation. The content of this report is essential for diagnosis and may provide important critical findings. This information may be unfamiliar to patients to review without a medical professional present. It is advised that the patient review this report in the presence of a health care provider who can answer questions and explain the details. SURGICAL PATHOLOGY REPORT FINAL Patient Name: ?? BRI JONES Gender: ??M : ??1965 (Age: 59) Address: ??[address] [place], [place] ??[address] Hospital #: ??[id number] Taken:11/16/2024 Received:11/16/2024 Reported: 11/17/2024 Patient Type: BJ Inpatient ?? Service: Gastroenterology Location: [facility] ??[address] Physician(s): ??MD Kirt Romero, Casi Fernandez.D. Diagnosis: A. ??Esophagus, distal, biopsy ? - Cardia-type gastric mucosa with intestinal metaplasia ? - Negative for dysplasia clma/11/17/2024 13:31 By this signature, I attest that the above diagnosis is based upon my personal examination of the slides(and/or other material indicated in the diagnosis). Reno Redd M.D. Report Electronically Reviewed and Signed Out By ??Reno Redd M.D. 11/17/2024 15:51:18 Ajay Arvizu D.O. History: The patient is a 59-year-old man presenting with food impaction of esophagus, initial encounter. ??Operative procedure: ??Upper endoscopy with removal foreign body and biopsy. Specimen(s) Received: A: Distal esophageal nodule bxs Gross Description: Received in formalin, labeled with the patient? ? s identifiers and distal esophageal nodule ??and consists of a single freed-pink fragment(s) of soft tissue measuring 0.6 cm in greatest dimension. ?Labeled A1. Jar 0. ?? sxst/11/16/2024 18:50 PA(s): Dora Hsu By this signature, I attest that the above diagnosis is based upon my personal examination of the slides(and/or other material). Addenda/Procedures The performance characteristics of some immunohistochemical stains, fluorescence in-situ hybridization tests and immunophenotyping by flow cytometry cited in this report (if any) were determined by the Surgical Pathology and Flow Cytometry Departments at [facility] as part of an ongoing quality control head program and in compliance with federally mandated regulations drawn from the Clinical Laboratory Improvement Act of 1988 (CLIA '88). ??Some of these tests rely on the use of analyte specific reagents and are subject to specific labeling requirements by the US Food and Drug Administration. ??Such diagnostic tests may only be performed in a facility that is certified by the Department of Health and Human Services as a high complexity laboratory under CLIA '88. ??The FDA has determined that such clearance or approval is not necessary. ??This test is used for clinical purposes. ??It should not be regarded as investigational or for research. ??Nevertheless, federal rules concerning the medical use of analyte specific reagents require that the following disclaimer be attached to the report: This test was developed and its performance characteristics determined by the Surgical Pathology and Flow Cytometry Departments of [facility]. ??It has not been cleared or approved by the U. S. Food and Drug Administration. IMAGES AND SCANNED DOCUMENTS, IF INCLUDED, ONLY VIEWABLE IN PDF VERSION OF REPORT Hany Martinez MD LAB PATHOLOGY ORDERABLES Final Result PATHOLOGY [facility] 3rd Floor [place], [place] [phone] * EGD (11/16/2024 4:05 PM ONLINE FACILITATOR) Anatomical Region Laterality Modality Other Narrative Procedure Note Hany Martinez MD - 11/16/2024 4:05 PM [facility] Patient Name: Bri Jones Procedure Date: 11/16/2024 4:05 PM Date of : 1965 Admit Type: Outpatient Age: 59 Gender: Male Attending MD: Hany Martinez M.D. Room: [facility] ENDOSCOPY Note Status: Finalized Procedure: Upper GI endoscopy Indications: Foreign body in the esophagus, (food impaction) Referring MD: Oksana Meyers, Cruz Redding M.D. Providers: Hany Martinez M.D., Mark Bates M.D. Medicines: Monitored Anesthesia Care Complications: No immediate complications. Estimated Blood Loss: Estimated blood loss: none. Procedure: Pre-Anesthesia Assessment: - Prior to the procedure, a History and Physicalwas performed, and patient medications, allergies and sensitivities were reviewed. The patient'stolerance of previous anesthesia was reviewed. The benefits, risks, and alternatives to theprocedure and sedation were discussed and informed consentwas obtained. The scope was passed under direct vision. The [id number] [id number] endoscope was introduced through the mouth, and advanced to the second partof duodenum. The upper GI endoscopy was accomplished without difficulty. The patient tolerated the procedure well. Findings: Food (chicken and beans) was found in the middle third of theesophagus. The endoscope was removed, and an overtube with cap was fitted. The scope and overtube were then reinserted via the mouth and advanced to the esophagus to aid in foreign body removal. Removal wasaccomplished with a three prong grasper. Stasis esophagitis with no bleeding was found 35 cm from theincisors. No strictures were noted in the esophagus. Nodular mucosa was found at the gastroesophageal junction. Biopsieswere taken with a cold forceps for histology. The entire examined stomach was normal. The examined duodenum was normal. Impression: - Food in the middle third of the esophagus.Removal was successful. - Stasis esophagitis in the mid esophagus. - Nodular mucosa at the GE junction. Biopsied. - Normal stomach. - Normal examined duodenum. - An overtube with cap was used to aid in foreignbody removal. Recommendation: - [facility]. - Use a proton pump inhibitor PO BID. - Use sucralfate suspension 1 gram PO BID. - Repeat upper endoscopy in 3 months to checkhealing and consider empiric dilation as patientexperiences dysphagia intermittently. - Await pathology results. Electronically signed by Hany Martinez MD Hany Martinez M.D. 11/16/2024 5:05:44 PM Number of Addenda: 0 Note Initiated On: 11/16/2024 4:05 PM us Hany Martinez MD ENDOSCOPY PROCEDURES Final Res ult * POCT glucose (11/16/2024 3:54 PM ONLINE FACILITATOR) Glucose, POC 118 70 - 199 mg/dL Blood 11/16/2024 3:54 PM ONLINE FACILITATOR 11/16/2024 3:54 PM ONLINE FACILITATOR Cruz Redding MD PhD LAB POCT ORDERABLES - DEVICE Final Result Performing Organization Address [facility] Co de Phone Number [facility] [place] [employer] [place] [address] * POCT glucose (11/16/2024 11:37 AM ONLINE FACILITATOR) Glucose, POC 129 70 - 199 mg/dL Blood 11/16/2024 11:3 7 AM ONLINE FACILITATOR 11/16/2024 11:37 AM ONLINE FACILITATOR Cruz Redding MD PhD LAB POCT ORDERABLES - DEVICE Final Result Performing Organization Address [facility] Co de Phone Number [facility] [place] [employer] [place] [address] * CT Chest Abdomen W Contrast (11/16/2024 10:32 AM ONLINE FACILITATOR) Anatomical Region Laterality Modality Body N/A Computed Tomogra phy 11/16/2024 11:0 1 AM ONLINE FACILITATOR Impressions 11/16/2024 11:01 AM ONLINE FACILITATOR 1. ??Two areas of segmental thickening of the midthoracic and lower thoracic esophagus, with areas of fluid/debris above the levels of thickened esophagus, likely corresponding to the reported symptoms of impaction in setting of esophagitis. ??There is also a large amount of debris in the midthoracic trachea, which places the patient at risk for aspiration. 2. ??Redemonstrated findings of nontuberculous mycobacterial infection with cavitary changes in the right upper lobe and multiple additional areas of scarring, consolidation and tree-in-bud nodularity. ??The consolidation in the right upper lobe and superior segment of the left lower lobe are slightly improved compared to 07/21/2024. 3. ??No acute findings in the abdomen. Electronically signed by: Dominique Richmond M.D. 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 ??Patient has erosive esophagitis presenting with food impaction. ?? TECHNIQUE: ??Transaxial computed tomographic images of the chest and abdomen were obtained with intravenous contrast according to the standard protocol after the uneventful administration of 70 mL Opti-Ray 350 intravenous contrast. COMPARISON: CT 07/21/2024, 12/12/2021 FINDINGS: ?? There is scarring in the right upper lobe with multiple thick-walled cavities in the posterior right upper lobe, which is similar to 07/21/2024. ??There is slightly decreased consolidation in the right upper lobe compared to 07/21/2024 (series 4, image 55). ??A spiculated 6 mm right upper lobe nodule is unchanged (series 3, image 58). There are slightly increased tree-in-bud nodularity in the lateral right upper lobe (series 3, image 64). ??Chronic partial right middle lobe collapse is unchanged. ??Pulmonary nodules in the right lower lobe are stable to slightly decreased in size. ??Spiculated nodules and scarring in the right lung base is unchanged. ??Scarring in the posterior left upper lobe is unchanged. ??A spiculated 7 mm left upper lobe nodule is unchanged (series 3, image 58). ??A cavitary 1 cm left upper lobe nodule is unchanged (series 3, image 79). ??Tree-in-bud nodularity in the lingula is unchanged. ??Multiple areas of scarring and tree-in-bud nodularity in the posterior left lower lobe are stable, with slight improvement in the superior segment of the left lower lobe. There is debris seen in the trachea (series 3, image 29). ??There is a fluid-filled and patulous esophagus, which placed the patient at risk for aspiration. ??There is mild thickening of the mid thoracic esophagus and a 2nd area of mild thickening of the distal thoracic esophagus. The thyroid is normal. ??No supraclavicular or axillary lymphadenopathy. ??Subcentimeter mediastinal lymph nodes are unchanged and likely reactive. ??No hilar lymphadenopathy. ??The thoracic aorta is normal in caliber with conventional three-vessel arch. ??Heart size is normal without pericardial effusion. ??Mild calcified atherosclerosis of the coronary arteries. ??Bilateral gynecomastia. Focal fat deposition adjacent to the falciform ligament. ??No suspicious liver lesion. ??No biliary duct dilation. ??Cholecystectomy. Portal vein, superior mesenteric vein and splenic vein are patent. High attenuation material in the cystic duct remnant is unchanged. 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 ??There is unchanged splenic atrophy with small size of the spleen. Normal adrenal glands. ??Right upper pole renal cortical scarring. Left renal cortical scarring. ??Multiple hypoattenuating renal lesions are too small to characterize but likely represent cysts. ??No hydronephrosis. ??Subcentimeter mesenteric and retroperitoneal lymph nodes are unchanged and likely reactive. ??Circumaortic left renal vein. ??There is a replaced left hepatic artery from the left gastric. Abdominal aorta is normal caliber with mild calcified atherosclerosis. ??Normal appendix. ??Colonic diverticulosis. ??No bowel obstruction. ??Small bowel is normal in caliber. ??Stomach and duodenal sweep are normal. ??No acute fracture or suspicious osseous lesion. 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 Patient has erosive esophagitis presenting with food impaction. TECHNIQUE: Transaxial computed tomographic images of the chest and abdomen were obtained with intravenous contrast according to the standard protocol after the uneventful administration of 70 mL Opti-Ray 350 intravenous contrast. COMPARISON: CT 07/21/2024, 12/12/2021 FINDINGS: There is scarring in the right upper lobe with multiple thick-walled cavities in the posterior right upper lobe, which is similar to 07/21/2024. There is slightly decreased consolidation in the right upper lobe compared to 07/21/2024 (series 4, image 55). A spiculated 6 mm right upper lobe nodule is unchanged (series 3, image 58). There are slightly increased tree-in-bud nodularity in the lateral right upper lobe (series 3, image 64). Chronic partial right middle lobe collapse is unchanged. Pulmonary nodules in the right lower lobe are stable to slightly decreased in size. Spiculated nodules and scarring in the right lung base is unchanged. Scarring in the posterior left upper lobe is unchanged. A spiculated 7 mm left upper lobe nodule is unchanged (series 3, image 58). A cavitary 1 cm left upper lobe nodule is unchanged (series 3, image 79). Tree-in-bud nodularity in the lingula is unchanged. Multiple areas of scarring and tree-in-bud nodularity in the posterior left lower lobe are stable, with slight improvement in the superior segment of the left lower lobe. There is debris seen in the trachea (series 3, image 29). There is a fluid-filled and patulous esophagus, which placed the patient at risk for aspiration. There is mild thickening of the mid thoracic esophagus and a 2nd area of mild thickening of the distal thoracic esophagus. The thyroid is normal. No supraclavicular or axillary lymphadenopathy. Subcentimeter mediastinal lymph nodes are unchanged and likely reactive. No hilar lymphadenopathy. The thoracic aorta is normal in caliber with conventional three-vessel arch. Heart size is normal without pericardial effusion. Mild calcified atherosclerosis of the coronary arteries. Bilateral gynecomastia. Focal fat deposition adjacent to the falciform ligament. No suspicious liver lesion. No biliary duct dilation. Cholecystectomy. Portal vein, superior mesenteric vein and splenic vein are patent. High attenuation material in the cystic duct remnant is unchanged. 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 There is unchanged splenic atrophy with small size of the spleen. Normal adrenal glands. Right upper pole renal cortical scarring. Left renal cortical scarring. Multiple hypoattenuating renal lesions are too small to characterize but likely represent cysts. No hydronephrosis. Subcentimeter mesenteric and retroperitoneal lymph nodes are unchanged and likely reactive. Circumaortic left renal vein. There is a replaced left hepatic artery from the left gastric. Abdominal aorta is normal caliber with mild calcified atherosclerosis. Normal appendix. Colonic diverticulosis. No bowel obstruction. Small bowel is normal in caliber. Stomach and duodenal sweep are normal. No acute fracture or suspicious osseous lesion. IMPRESSION: 1. Two areas of segmental thickening of the midthoracic and lower thoracic esophagus, with areas of fluid/debris above the levels of thickened esophagus, likely corresponding to the reported symptoms of impaction in setting of esophagitis. There is also a large amount of debris in the midthoracic trachea, which places the patient at risk for aspiration. 2. 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 The consolidation in the right upper lobe and superior segment of the left lower lobe are slightly improved compared to 07/21/2024. 3. No acute findings in the abdomen. Electronically signed by: Dominique Richmond M.D. Ron Weinberg MD IMG CT PROCEDURES Final Resul t * POCT glucose (11/16/2024 7:57 AM ONLINE FACILITATOR) Glucose, POC 118 70 - 199 mg/dL Blood 11/16/2024 7:57 AM ONLINE FACILITATOR 11/16/2024 7:57 AM ONLINE FACILITATOR Cruz Redding MD PhD LAB POCT ORDERABLES - DEVICE Final Result ZULEMA DENT [facility] [place] [address] * POCT glucose (11/16/2024 3:55 AM ONLINE FACILITATOR) Glucose, POC 123 70 - 199 mg/dL Blood 11/16/2024 3:55 AM ONLINE FACILITATOR 11/16/2024 3:55 AM ONLINE FACILITATOR us Josué Del Valle MD PhD LAB POCT ORDERABLES - DE VICE Final Result Performing Organization Address [facility] de Phone Number ZULEMA DENT [facility] Department [place] [address] * eGFR (11/16/2024 3:38 AM ONLINE FACILITATOR) eGFR >90 >=60 mL/min/1. 73 m2 Comment: Interpretive Data Reference Interval Normal ?>/= 90 mL/min/1.73m2 Mildly decreased* ? 60 - 89 mL/min/1.73m2 Mildly to moderately decreased ?45 - 59 mL/min/1.73m2 Moderately to severely decreased ??30 - 44 mL/min/1.73m2 Severely decreased ?15 - 29 mL/min/1.73m2 Kidney Failure ?< 15 ??mL/min/1.73m2 *Relative to young adult level Estimated glomerular filtration rate is determined by the 2020 CKD-EPI equation recommended by the National Kidney Foundation (A Unifying Approach to GFR Estimation: Recommendations of the NKF-ASK Task Force on Reassessing the Inclusion of Race in Diagnosing Kidney Disease, JASN 2020). The CKD-EPI equation should not be used for patients with unstable renal function and has not been validated in children and those over 70. Current interpretive data was last reviewed 2021. Blood 11/16/2024 3:38 AM ONLINE FACILITATOR 11/16/2024 4:26 AM ONLINE FACILITATOR us Josué Del Valle MD PhD LAB BLOOD ORDERABLES Fin al Result Performing Organization Address [facility] [place] [address] * aPTT (11/16/2024 3:38 AM ONLINE FACILITATOR) aPTT 36 28 - 38 sec Comment: Interpretive Data Heparin therapeutic range: 66.0 - 100.0 seconds. Range based on correlation with therapeutic heparin activity range of 0.3 - 0.7 Units/mL. Current interpretive data was last revised on 2023. Blood 11/16/2024 3:38 AM ONLINE FACILITATOR 11/16/2024 4:24 AM ONLINE FACILITATOR Josué Del Valle MD PhD LAB BLOOD ORDERABLES Fin al Result Performing Organization Address [facility] [place] [address] * (ABNORMAL) Fibrinogen (11/16/2024 3:38 AM ONLINE FACILITATOR) Fibrinogen 771(H) 170 - 400 mg/dL Blood 11/16/2024 3:38 AM ONLINE FACILITATOR 11/16/2024 4:24 AM ONLINE FACILITATOR Josué Del Valle MD PhD LAB BLOOD ORDERABLES Fin al Result Performing Organization Address [facility] Co de Phone Number [facility] [place] [address] * Type and screen (11/16/2024 3:38 AM ONLINE FACILITATOR) Ursula, indirect Negative ABO Rh A Positive [facility] Blood 11/16/2024 3:38 AM ONLINE FACILITATOR 11/16/2024 4:18 AM ONLINE FACILITATOR Narrative [facility] - 11/16/2024 5:10 AM ONLINE FACILITATOR Has the patient had Daratumumab or Isatuximab in the past 6 months?->Unknown Josué Del Valle MD PhD LAB BLOOD BANK TEST ORDRoxanne VILLEGAS Final Result Performing Organization Address [facility] Co de Phone Number [facility] [employer] [place] [address] * Uric acid (11/16/2024 3:38 AM ONLINE FACILITATOR) Uric acid 5.8 3.0 - 8.0 mg/dL Blood 11/16/2024 3:38 AM ONLINE FACILITATOR 11/16/2024 4:26 AM ONLINE FACILITATOR Josué Del Valle MD PhD LAB BLOOD ORDERABLES Fin al Result Performing Organization Address [facility] Co de Phone Number [facility] [employer] [place] [address] * Phosphorus (11/16/2024 3:38 AM ONLINE FACILITATOR) Phosphorus, pl 2.9 2.3 - 4.5 mg/dL Blood 11/16/2024 3:38 AM ONLINE FACILITATOR 11/16/2024 4:26 AM ONLINE FACILITATOR Josué Del Valle MD PhD LAB BLOOD ORDERABLES Fin al Result Performing Organization Address [facility] de Phone Number [facility] [employer] [place] [address] * Magnesium (11/16/2024 3:38 AM ONLINE FACILITATOR) Magnesium 1.9 1.4 - 2.5 mg/dL Blood 11/16/2024 3:38 AM ONLINE FACILITATOR 11/16/2024 4:26 AM ONLINE FACILITATOR Josué Del Valle MD PhD LAB BLOOD ORDERABLES Fin al Result Performing Organization Address [facility] Co de Phone Number [facility] [place] [address] * Lactate dehydrogenase (LD) (11/16/2024 3:38 AM ONLINE FACILITATOR) Lactate dehydrogenase (LDH) 205 100 - 250 Units/L Blood 11/16/2024 3:38 AM ONLINE FACILITATOR 11/16/2024 4:26 AM ONLINE FACILITATOR Josué Del Valle MD PhD LAB BLOOD ORDERABLES Fin al Result [facility] Department [place] [address] * (ABNORMAL) Comprehensive metabolic panel (11/16/2024 3:38 AM ONLINE FACILITATOR) Pathologist [facility] Sodium 142 135 - 145 mmol/L Potassium, pl 4.1 3.3 - 4.9 mmol/L [facility] Chloride 100 97 - 110 mmol/L [facility] CO2 32 22 - 32 mmol/L [facility] Anion gap 10 2 - 15 mmol/L [facility] BUN 20 6 - 25 mg/dL [facility] Creatinine 0.67(L) 0.80 - 1.30 mg/dL [facility] Glucose 129 70 - 199 mg/dL [facility] Comment: Interpretive Data Fasting glucose >/= 126 mg/dl is diagnostic for diabetes. ?? Fasting is defined as no caloric intake for at least 8 hours. Fasting glucose between 100 mg/dl to 125 mg/dl is diagnostic of prediabetes. In a patient with classic symptoms of hyperglycemia or hyperglycemic crisis, a random glucose >/= 200 mg/dl is diagnostic for diabetes. In the absence of unequivocal hyperglycemia, results should be confirmed by repeat testing. The classification and Diagnosis of Diabetes Diabetes Care 202; 46: S19-S40. Current interpretive data was last revised 2022. Calcium 9.9 8.5 - 10.3 mg/dL [facility] Bilirubin, total 0.4 0.1 - 1.2 mg/dL [facility] Protein, pl 7.7 6.5 - 8.5 g/dL [facility] Albumin 4.0 3.5 - 5.0 g/dL [facility] Alk phos 180(H) 40 - 130 Units/L [facility] ALT 54 7 - 55 Units/L [facility] AST 30 10 - 50 Units/L [facility] Blood 11/16/2024 3:38 AM ONLINE FACILITATOR 11/16/2024 4:26 AM ONLINE FACILITATOR Narrative ZULE[facility] DENT - 11/16/2024 4:58 AM ONLINE FACILITATOR Saturday and only. Morning draw. us Josué Del Valle MD PhD LAB BLOOD ORDERABLES Fin al Result [facility] Department [place] [address] * eGFR (11/16/2024 12:13 AM ONLINE FACILITATOR) eGFR >90 >=60 mL/min/1. 73 m2 Comment: Interpretive Data Reference Interval Normal ?>/= 90 mL/min/1.73m2 Mildly decreased* ? 60 - 89 mL/min/1.73m2 Mildly to moderately decreased ?45 - 59 mL/min/1.73m2 Moderately to severely decreased ??30 - 44 mL/min/1.73m2 Severely decreased ?15 - 29 mL/min/1.73m2 Kidney Failure ?< 15 ??mL/min/1.73m2 *Relative to young adult level Estimated glomerular filtration rate is determined by the 2020 CKD-EPI equation recommended by the National Kidney Foundation (A Unifying Approach to GFR Estimation: Recommendations of the NKF-ASK Task Force on Reassessing the Inclusion of Race in Diagnosing Kidney Disease, JASN 2020). The CKD-EPI equation should not be used for patients with unstable renal function and has not been validated in children and those over 70. Current interpretive data was last reviewed 2021. Blood 11/16/2024 12:1 3 AM ONLINE FACILITATOR 11/16/2024 12:32 AM ONLINE FACILITATOR us Mark Figueroa MD PhD LAB BLOOD ORDERABLE S Final Result [facility] Department [place] [address] * Differential, auto (11/16/2024 12:13 AM ONLINE FACILITATOR) Neutrophil abs 3.6 1.5 - 6.5 K/cumm Imm gran abs 0.0 0.0 - 0.1 K/cumm [facility] Lymphocyte abs 2.8 0.8 - 3.3 K/cumm [facility] Monocyte abs 0.7 0.2 - 0.8 K/cumm [facility] Eosinophil abs 0.2 0.0 - 0.5 K/cumm [facility] Basophil abs 0.1 0.0 - 0.1 K/cumm [facility] Neutrophil pct 49.1 % [facility] Comment: Interpretive Data Percent cell count reference ranges are not reported, since discordance with absolute values may lead to misinterpretation of CBC data. Current Interpretive Data was last revised on 2018. Imm gran pct 0.4 % [facility] Comment: Interpretive Data Percent cell count reference ranges are not reported, since discordance with absolute values may lead to misinterpretation of CBC data. Current Interpretive Data was last revised on 2018. Lymphocyte pct 37.9 % [facility] Comment: Interpretive Data Percent cell count reference ranges are not reported, since discordance with absolute values may lead to misinterpretation of CBC data. Current Interpretive Data was last revised on 2018. Monocyte pct 8.9 % [facility] Comment: Interpretive Data Percent cell count reference ranges are not reported, since discordance with absolute values may lead to misinterpretation of CBC data. Current Interpretive Data was last revised on 2018. Eosinophil pct 3.0 % [facility] Comment: Interpretive Data Percent cell count reference ranges are not reported, since discordance with absolute values may lead to misinterpretation of CBC data. Current Interpretive Data was last revised on 2018. Basophil pct 0.7 % [facility] Comment: Interpretive Data Percent cell count reference ranges are not reported, since discordance with absolute values may lead to misinterpretation of CBC data. Current Interpretive Data was last revised on 2018. Blood 11/16/2024 12:1 3 AM ONLINE FACILITATOR 11/16/2024 12:32 AM ONLINE FACILITATOR us Mark Figueroa MD PhD LAB BLOOD ORDERABLE S Final Result Performing Organization Address City/[facility]/ZIP Co de Phone Number [facility] Department [place] [address] * (ABNORMAL) CBC with auto differential (11/16/2024 12:13 AM ONLINE FACILITATOR) WBC 7.3 3.8 - 9.9 K/cumm Hgb 13.1 13.0 - 17.5 g/dL [facility] Hct 39.0 38.9 - 50.3 % [facility] Plt 314 150 - 400 K/cumm [facility] MPV 10.4 9.1 - 12.3 fL [facility] RBC 3.69(L) 4.30 - 5.80 M/cumm [facility] MCV 105.7(H) 81.3 - 96.4 fL [facility] MCH 35.5(H) 27.1 - 33.3 pg [facility] MCHC 33.6 32.3 - 35.7 g/dL [facility] RDW CV 15.1(H) 11.1 - 14.9 % [facility] RDW SD 58.9(H) 35.7 - 48.1 fL [facility] NRBC abs 0.02(H) 0.00 - 0.01 K/cumm [facility] Blood 11/16/2024 12:1 3 AM ONLINE FACILITATOR 11/16/2024 12:32 AM ONLINE FACILITATOR us Mark Figueroa MD PhD LAB BLOOD ORDERABLE S Final Result Performing Organization Address [facility]/ZIP Co de Phone Number [facility] Department [place] [address] * Protime-INR (11/16/2024 12:13 AM ONLINE FACILITATOR) PT 10.6 9.7 - 13.0 sec INR 0.98 0.90 - 1.20 [facility] Comment: Interpretive data Oral anticoagulant therapeutic ranges: Venous thromboembolism prophylaxis or treatment: 2.0-3.0 CARDIOLOGY Standard range: 2.0-3.0 High-intensity range: 2.5-3.5 Refer to indication-specific guidelines for appropriate target ranges for prosthetic heart valve replacement. Current interpretive data was last revised on 2019. Blood 11/16/2024 12:1 3 AM ONLINE FACILITATOR 11/16/2024 12:35 AM ONLINE FACILITATOR us Mark Figueroa MD PhD LAB BLOOD ORDERABLE S Final Result [facility] Department [place] [address] * (ABNORMAL) Basic metabolic panel (11/16/2024 12:13 AM ONLINE FACILITATOR) Pathologist [facility] Sodium 140 135 - 145 mmol/L Potassium, pl 4.8 3.3 - 4.9 mmol/L [facility] Comment:Hemolyzed; Potassium value may be falsely elevated by as much as 0.3-0.5 mmol/L. Suggest redraw and reanalysis. Chloride 100 97 - 110 mmol/L [facility] CO2 28 22 - 32 mmol/L [facility] Anion gap 12 2 - 15 mmol/L [facility] BUN 19 6 - 25 mg/dL [facility] Creatinine 0.63(L) 0.80 - 1.30 mg/dL [facility] Glucose 133 70 - 199 mg/dL [facility] Comment: Interpretive Data Fasting glucose >/= 126 mg/dl is diagnostic for diabetes. ?? Fasting is defined as no caloric intake for at least 8 hours. Fasting glucose between 100 mg/dl to 125 mg/dl is diagnostic of prediabetes. In a patient with classic symptoms of hyperglycemia or hyperglycemic crisis, a random glucose >/= 200 mg/dl is diagnostic for diabetes. In the absence of unequivocal hyperglycemia, results should be confirmed by repeat testing. The classification and Diagnosis of Diabetes Diabetes Care 202; 46: S19-S40. Current interpretive data was last revised 2022. Calcium 9.9 8.5 - 10.3 mg/dL [facility] Blood 11/16/2024 12:1 3 AM ONLINE FACILITATOR 11/16/2024 12:32 AM ONLINE FACILITATOR us Mark Figueroa MD PhD LAB BLOOD ORDERABLE S Final Result Performing Organization Address [facility] Co de Phone Number [facility] Department [place] [employer] [place] [address] * POCT glucose (11/16/2024 12:12 AM ONLINE FACILITATOR) Glucose, POC 130 70 - 199 mg/dL Blood 11/16/2024 12:1 2 AM ONLINE FACILITATOR 11/16/2024 12:12 AM ONLINE FACILITATOR Josué Del Valle MD PhD LAB POCT ORDERABLES - DE VICE Final Result Performing Organization Address [facility] Co de Phone Number [facility] Department [place] [employer] [place] [address] * Lipid panel (07/14/2024 6:22 PM CDT) Cholesterol 89 30 - 199 mg/dL Comment: Interpretive Data Ages < or = 19 years ??Acceptable: ? <170 mg/dL ??Borderline high: ??170-199 mg/dL ??High: ? >or= 200 mg/dL Ages > or = 20 years ??Desirable: ?<200 mg/dL ??Borderline high: ??200-239 mg/dL ??High: ? >or= 240 mg/dL Literature References: 1. Expert Panel on Integrated Guidelines for Cardiovascular Health and Risk Reduction in Children and Adolescents. Pediatrics 2011;128:S213 2. NCEP Expert Panel. Circulation 2004;110:227 Current Interpretive Data was last revised on 2018. Triglycerides 89 <=149 mg/dL [facility] Comment: Interpretive Data Ages < or = 9 years ??Acceptable: ? <75 mg/dL ??Borderline high: ??75-99 mg/dL ??High: ? >or= 100 mg/dL Ages 10 to 20 years ??Acceptable: ? <90 mg/dL ??Borderline high: ??90-129 mg/dL ??High: ? >or= 130 mg/dL Ages > or = 20 years ??Desirable: ?<150 mg/dL ??Borderline high: ??150-199 mg/dL ??High: ? 200-499 mg/dL ?Very high: ?? >or= 499 mg/dL Literature References: 1. Expert Panel on Integrated Guidelines for Cardiovascular Health and Risk Reduction in Children and Adolescents. Pediatrics 2011;128:S213 2. NCEP Expert Panel. Circulation 2004;110:227 Current Interpretive Data was last revised on 2018. HDL 48 >=40 mg/dL [facility] Comment: Interpretive Data Ages < or = 19 years ??Acceptable: ? >45 mg/dL ??Borderline low: ?? 40-45 mg/dL ??Low: ? <40 mg/dL Ages > or = 20 years ??Desirable: ?>or= 60 mg/dL ??Low: ? <40 mg/dL Literature References: 1. Expert Panel on Integrated Guidelines for Cardiovascular Health and Risk Reduction in Children and Adolescents. Pediatrics 2011;128:S213 2. NCEP Expert Panel. Circulation 2004;110:227 Current Interpretive Data was last revised on 2018. LDL, calculated 23 <=129 mg/dL [facility] Comment: Interpretive Data Ages < or = 19 years ??Acceptable: ? <110 mg/dL ??Borderline high: ??110-129 mg/dL ??High: ?>or= 130 mg/dL Ages > or = 20 years ??Optimal: ? <100 mg/dL ??Near optimal: ?100-129 mg/dL ??Borderline high: ?? 130-159 mg/dL ??High: ?>160 mg/dL Calculated using the Pedro Luis LDL-C estimating equation. This equation was implemented on 2024. Prior to this date LDL-C was estimated using the Friedewald equation. Literature References: 1. Expert Panel on Integrated Guidelines for Cardiovascular Health and Risk Reduction in Children and Adolescents. Pediatrics 2011;128:S213 2. NCEP Expert Panel. Circulation 2004;110:227 3. Pedro Luis Lance et al. CÉSAR Cardiol. 2020 March 18;5(5):540-548. doi: 10.1001/jamacardio.2020.0013 Current Interpretive Data was last revised on 2024. Non-HDL Cholesterol 41 mg/dL [facility] Comment: Interpretive Data Ages < or = 19 years ??Acceptable: ?<120 mg/dL ??Borderline high: ??120-144 mg/dL ??High: ?>145 mg/dL Ages > or = 20 years ??When triglycerides are >200 mg/dL, Non-HDL cholesterol is a secondary target of ? therapy with treatment goals that are 30 mg/dL greater than the LDL cholesterol target. ? Literature References: 1. Expert Panel on Integrated Guidelines for Cardiovascular Health and Risk Reduction in Children and Adolescents. Pediatrics 2011;128:S213 2. NCEP Expert Panel. Circulation 2004;110:227 Current Interpretive Data was last revised on 2018. Chol/HDL ratio 2 [facility] Blood 07/14/2024 6:22 PM CDT 07/14/2024 9:07 PM CDT Cameron Pierce PA LAB BLOOD ORDERABLES Final R esult Performing Organization Address [facility] Co de Phone Number [facility] [address] [facility] Department [place] [address] * Albumin Creatinine Ratio, Urine (02/28/2022 8:57 AM CDT) Albumin Ur <12.0 mg/L [facility] Comment: Interpretive Data No reference range established. Current interpretive data was last revised 2019. Creatinine Ur 42.0 mg/dL [facility] Comment: Interpretive Data No reference range established. Current interpretive data was last revised 2019. Albumin Creatinine Ratio, Ur <29 1 - 29 mg/g [facility] Urine 02/28/2022 8:57 AM CDT 02/28/2022 1:[address] Montejo MD LAB URINE ORDERABLES Final Resu lt Performing Organization Address [facility] de Phone Number [facility] [address] [facility] Department [place] [address] * Hepatitis panel, acute (09/07/2021 4:28 AM CDT) Pathologist [facility] Hep A IgM Nonreactive Nonreactive [facility] Comment: Interpretive Data: If Hep A IgM Ab is reported as Equivocal, a new sample should be drawn in two weeks for testing. Current interpretive data was last revised on 20. Hep B core IgM Nonreactive Nonreactive [facility] Comment: Interpretive Data If HepB Core IgM Ab is reported as Equivocal, a new sample should be drawn in two weeks for testing. Current interpretive data was last revised on 20. Hep C Ab Nonreactive Nonreactive [facility] Comment:Antibodies to HCV no t detected. Does NOT exclude the possibility of recent exposure to HCV. HepBsAg Nonreactive Nonreactive [facility] Blood 09/07/2021 4:28 AM CDT 09/07/2021 4:44 AM CDT us Anaid Kruse MD LAB MICROBIOL OGY - GENERAL ORDERABLES Edited Result - Final [facility] Department [place] [address] * PSA screen (02/04/2017 8:36 AM CDT) PSA-Total 0.7 0.1 - 4.0 ng/mL [facility] Blood specimen (specimen) 02/04/2017 8:36 AM CDT 02/04/2017 9:05 AM CDT us Josué Del Valle MD PhD LAB BLOOD ORDERABLES Fin al Result Performing Organization Address [facility] Co de Phone Number [facility] Department [place] [address] from Last 3 Months or Most Recently Relevant to Health Maintenance Additional Health Concerns Infection Onset 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 Insurance MEDICARE [employer] MEDICARE [employer] Advance Directives For more information, please contact: [phone] * Full Code (Latest Code Status on File) Date Activated Date Inactivated Comments 11/16/2024 3:43 PM 11/18/2024 6:47 PM * Full Code Date Activated Date Inactivated Comments 11/16/2024 2:30 AM 11/16/2024 3:43 PM * Full Code Date Activated Date Inactivated Comments 07/23/2024 11:09 PM 08/02/2024 3:41 PM * Full Code Date Activated Date Inactivated Comments 07/15/2024 1:59 AM 07/17/2024 6:22 PM * Full Code Date Activated Date Inactivated Comments 06/15/2024 11:29 AM 06/24/2024 11:01 PM Care Teams Gluer Machine Setup Operator Relationship Specialty Start Date End Date Kirt Lindsay DO PCP - General Internal Medicine 02/02/21 Josué Del Valle MD PhD Medical Oncologist/Clearance Coordinator Medical Oncology 08/26/19 Cal Carranza DO [address] [address] Wood Setter Internal Medicine 06/12/23 Halie Khan MD [address] [facility] [address] [place] [address] Hearing Healthcare Practitioner Critical Care Med 06/12/23 Wilfred Kinsey MD [address] [address] Consulting Physician Gastroenterology 03/02/24
--- OUTSIDE RECORDS SUMMARY | 2024-11-22 10:43 | XMS_ITS | Referral Summary ---
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 Procedures Procedure Name Priority Date/Time Associated Diagnosis Comments POCT GLUCOSE DEVICE Routine 11/18/2024 11:20 AM INSURANCE CLAIMS SUPERVISOR POCT GLUCOSE DEVICE Routine 11/18/2024 7:30 AM INSURANCE CLAIMS SUPERVISOR POCT GLUCOSE DEVICE Routine 11/18/2024 4:25 AM INSURANCE CLAIMS SUPERVISOR EGFR Routine 11/18/2024 2:38 AM INSURANCE CLAIMS SUPERVISOR MANUAL DIFFERENTIAL Routine 11/18/2024 2:38 AM INSURANCE CLAIMS SUPERVISOR CBC WITHOUT DIFFERENTIAL Routine 2:38 AM INSURANCE CLAIMS SUPERVISOR BASIC METABOLIC PANEL Routine 11/18/2024 2:38 AM INSURANCE CLAIMS SUPERVISOR PHOSPHORUS Routine 11/18/2024 2:38 AM INSURANCE CLAIMS SUPERVISOR MAGNESIUM Routine 11/18/2024 2:38 AM INSURANCE CLAIMS SUPERVISOR BMT CBC Routine 11/18/2024 2:38 AM INSURANCE CLAIMS SUPERVISOR POCT GLUCOSE DEVICE Routine 11/18/2024 12:47 AM INSURANCE CLAIMS SUPERVISOR POCT GLUCOSE DEVICE Routine 11/17/2024 8:11 PM INSURANCE CLAIMS SUPERVISOR POCT GLUCOSE DEVICE Routine 11/17/2024 5:32 PM INSURANCE CLAIMS SUPERVISOR POCT GLUCOSE DEVICE Routine 11/17/2024 12:03 PM INSURANCE CLAIMS SUPERVISOR POCT GLUCOSE DEVICE Routine 11/17/2024 11:14 AM INSURANCE CLAIMS SUPERVISOR POCT GLUCOSE DEVICE Routine 11/17/2024 7:19 AM INSURANCE CLAIMS SUPERVISOR POCT GLUCOSE DEVICE Routine 11/17/2024 4:32 AM INSURANCE CLAIMS SUPERVISOR POCT GLUCOSE DEVICE Routine 11/17/2024 12:33 AM INSURANCE CLAIMS SUPERVISOR HEMOGLOBIN A1C Routine 11/17/2024 12:31 AM INSURANCE CLAIMS SUPERVISOR URIC ACID Routine 11/17/2024 12:31 AM INSURANCE CLAIMS SUPERVISOR EGFR Routine 11/17/2024 12:31 AM INSURANCE CLAIMS SUPERVISOR LACTATE DEHYDROGENASE Routine 11/17/2024 12:31 AM INSURANCE CLAIMS SUPERVISOR MANUAL DIFFERENTIAL Routine 11/17/2024 12:31 AM INSURANCE CLAIMS SUPERVISOR CBC WITHOUT DIFFERENTIAL Routine 12:31 AM INSURANCE CLAIMS SUPERVISOR BASIC METABOLIC PANEL Routine 11/17/2024 12:31 AM INSURANCE CLAIMS SUPERVISOR PHOSPHORUS Routine 11/17/2024 12:31 AM INSURANCE CLAIMS SUPERVISOR MAGNESIUM Routine 11/17/2024 12:31 AM INSURANCE CLAIMS SUPERVISOR BMT CBC Routine 11/17/2024 12:31 AM INSURANCE CLAIMS SUPERVISOR POCT GLUCOSE DEVICE Routine 11/16/2024 8:43 PM INSURANCE CLAIMS SUPERVISOR POCT GLUCOSE DEVICE Routine 11/16/2024 5:06 PM INSURANCE CLAIMS SUPERVISOR SURGICAL PATHOLOGY Routine 11/16/2024 4:53 PM INSURANCE CLAIMS SUPERVISOR Food impaction of esophagus, initial encounter ENDO ADD ON ESOPHAGOGASTRODUODENOSCOPY BIOPSY 11/16/2024 4:15 PM INSURANCE CLAIMS SUPERVISOR Food impaction of esophagus, initial encounter ESOPHAGOGASTRODUODENOSCOPY WITH REMOVAL FOREIGN BODY 11/16/2024 4:15 PM INSURANCE CLAIMS SUPERVISOR Food impaction of esophagus, initial encounter EGD 11/16/2024 4:05 PM INSURANCE CLAIMS SUPERVISOR POCT GLUCOSE DEVICE Routine 11/16/2024 3:54 PM INSURANCE CLAIMS SUPERVISOR POCT GLUCOSE DEVICE Routine 11/16/2024 11:[address] INSURANCE CLAIMS SUPERVISOR CT CHEST ABDOMEN W CONTRAST ED Urgent/IP Urgent 11/16/2024 10:32 AM INSURANCE CLAIMS SUPERVISOR POCT GLUCOSE DEVICE Routine 11/16/2024 7:57 AM INSURANCE CLAIMS SUPERVISOR POCT GLUCOSE DEVICE Routine 11/16/2024 3:55 AM INSURANCE CLAIMS SUPERVISOR EGFR Routine 11/16/2024 3:38 AM INSURANCE CLAIMS SUPERVISOR URIC ACID STAT 11/16/2024 3:38 AM INSURANCE CLAIMS SUPERVISOR LACTATE DEHYDROGENASE STAT 11/16/2024 3:38 AM INSURANCE CLAIMS SUPERVISOR PHOSPHORUS STAT 11/16/2024 3:38 AM INSURANCE CLAIMS SUPERVISOR MAGNESIUM STAT 11/16/2024 3:38 AM INSURANCE CLAIMS SUPERVISOR APTT Routine 11/16/2024 3:38 AM INSURANCE CLAIMS SUPERVISOR COMPREHENSIVE METABOLIC PANEL Routine 3:38 AM INSURANCE CLAIMS SUPERVISOR FIBRINOGEN STAT 11/16/2024 3:38 AM INSURANCE CLAIMS SUPERVISOR TYPE AND SCREEN STAT 11/16/2024 3:38 AM INSURANCE CLAIMS SUPERVISOR EGFR STAT 11/16/2024 12:13 AM INSURANCE CLAIMS SUPERVISOR DIFFERENTIAL AUTO STAT 11/16/2024 12:13 AM INSURANCE CLAIMS SUPERVISOR PROTIME-INR STAT 11/16/2024 12:13 AM INSURANCE CLAIMS SUPERVISOR BASIC METABOLIC PANEL STAT 11/16/2024 12:13 AM INSURANCE CLAIMS SUPERVISOR CBC WITH AUTO DIFFERENTIAL STAT 11/16 12:13 AM INSURANCE CLAIMS SUPERVISOR POCT GLUCOSE DEVICE Routine 11/16/2024 12:12 AM INSURANCE CLAIMS SUPERVISOR LIPID PANEL Add-On 07/14/2024 6:22 PM CDT ALBUMIN CREATININE RATIO, URINE STAT 02/28/2022 8:57 AM CDT Type 2 diabetes mellitus with hyperosmolarity 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, with long-term current use of insulin (CMS/HCC) (HCC) Vitamin D deficiency Icsbq-ccxqkm-nsgz disease (HCC) Other osteoporosis without current pathological fracture Screening for thyroid disorder HEPATITIS PANEL, ACUTE STAT 4:28 AM CDT PSA SCREEN Routine Gen Lab 02/04/2017 8:36 AM CDT from Last 3 Months or Most Recently Relevant to Health Maintenance Results * (ABNORMAL) POCT glucose (11/18/2024 11:20 AM INSURANCE CLAIMS SUPERVISOR) Glucose, POC 201(H) 70 - 199 mg/dL Comment:Glu2: RN/ Notified Glucose comment 1 Glu2: BECKI/ Notified [facility] Blood 11/18/2024 11:2 0 AM INSURANCE CLAIMS SUPERVISOR 11/18/2024 11:20 AM INSURANCE CLAIMS SUPERVISOR us Cruz Redding MD PhD LAB POCT ORDERABLES - DEVICE Final Result Performing Organization Address [facility] de Phone Number [facility] [address] [place] [address] * POCT glucose (11/18/2024 7:30 AM INSURANCE CLAIMS SUPERVISOR) Glucose, POC 148 70 - 199 mg/dL Blood 11/18/2024 7:30 AM INSURANCE CLAIMS SUPERVISOR 11/18/2024 7:30 AM INSURANCE CLAIMS SUPERVISOR us Cruz Redding MD PhD LAB POCT ORDERABLES - DEVICE Final Result Performing Organization Address [facility] de Phone Number [facility] Department [place] [address] [place] [address] * POCT glucose (11/18/2024 4:25 AM INSURANCE CLAIMS SUPERVISOR) Glucose, POC 146 70 - 199 mg/dL Blood 11/18/2024 4:25 AM INSURANCE CLAIMS SUPERVISOR 11/18/2024 4:25 AM INSURANCE CLAIMS SUPERVISOR us Cruz Redding MD PhD LAB POCT ORDERABLES - DEVICE Final Result Performing Organization Address [facility] Phone Number [facility] [place] [address] [place] [address] * eGFR (11/18/2024 2:38 AM INSURANCE CLAIMS SUPERVISOR) eGFR >90 >=60 mL/min/1. 73 m2 Comment: [...] last reviewed 2021. Blood 11/18/2024 2:38 AM INSURANCE CLAIMS SUPERVISOR 11/18/2024 3:24 AM INSURANCE CLAIMS SUPERVISOR us Josué Del Valle MD PhD LAB BLOOD ORDERABLES Fin al Result [facility] [place] [address] * (ABNORMAL) Manual Differential (11/18/2024 2:38 AM INSURANCE CLAIMS SUPERVISOR) Differential Manual Cells Counted 116 [facility] Neutrophil abs 3.4 1.5 - 6.5 K/cumm [facility] Imm gran abs 0.0 0.0 - 0.1 K/cumm [facility] Lymphocyte abs 2.2 0.8 - 3.3 K/cumm [facility] Monocyte abs 0.3 0.2 - 0.8 K/cumm [facility] Eosinophil abs 0.5 0.0 - 0.5 K/cumm [facility] Basophil abs 0.1 0.0 - 0.1 K/cumm [facility] Neutrophil pct 52.6 % [facility] Comment: Interpretive Data Percent cell count reference ranges are not reported, since discordance with absolute values may lead to misinterpretation of CBC data. Current Interpretive Data was last revised on 2018. Lymphocyte pct 33.6 % [facility] Comment: Interpretive Data Percent cell count reference ranges are not reported, since discordance with absolute values may lead to misinterpretation of CBC data. Current Interpretive Data was last revised on 2018. Monocyte pct 4.3 % [facility] Comment: Interpretive Data Percent cell count reference ranges are not reported, since discordance with absolute values may lead to misinterpretation of CBC data. Current Interpretive Data was last revised on 2018. Eosinophil pct 7.8 % [facility] Comment: Interpretive Data Percent cell count reference ranges are not reported, since discordance with absolute values may lead to misinterpretation of CBC data. Current Interpretive Data was last revised on 2018. Basophil pct 1.7 % [facility] Comment: Interpretive Data Percent cell count reference ranges are not reported, since discordance with absolute values may lead to misinterpretation of CBC data. Current Interpretive Data was last revised on 2018. RBC morphology Present(A) [facility] Anisocytosis Slight(A) [facility] Macrocytes 3-7/HPF(A) [facility] Platelet estimate Adequate [facility] Blood 11/18/2024 2:38 AM INSURANCE CLAIMS SUPERVISOR 11/18/2024 3:24 AM INSURANCE CLAIMS SUPERVISOR us Josué Del Valle MD PhD LAB BLOOD ORDERABLES Fin al Result [facility] [place] [address] * (ABNORMAL) CBC without differential (11/18/2024 2:38 AM INSURANCE CLAIMS SUPERVISOR) WBC 6.4 3.8 - 9.9 K/cumm Hgb 9.9(L) 13.0 - 17.5 g/dL [facility] Hct 30.0(L) 38.9 - 50.3 % [facility] Plt 254 150 - 400 K/cumm [facility] MPV 10.5 9.1 - 12.3 fL [facility] RBC 2.83(L) 4.30 - 5.80 M/cumm [facility] MCV 106.0(H) 81.3 - 96.4 fL [facility] MCH 35.0(H) 27.1 - 33.3 pg [facility] MCHC 33.0 32.3 - 35.7 g/dL [facility] RDW CV 14.8 11.1 - 14.9 % [facility] RDW SD 58.4(H) 35.7 - 48.1 fL [facility] NRBC abs 0.00 0.00 - 0.01 K/cumm [facility] Blood 11/18/2024 2:38 AM INSURANCE CLAIMS SUPERVISOR 11/18/2024 3:24 AM INSURANCE CLAIMS SUPERVISOR Josué Del Valle MD PhD LAB BLOOD ORDERABLES Fin al Result Performing Organization Address [facility] Co de Phone Number [facility] [place] [address] [place] [address] * Phosphorus (11/18/2024 2:38 AM INSURANCE CLAIMS SUPERVISOR) Phosphorus, pl 3.2 2.3 - 4.5 mg/dL Blood 11/18/2024 2:38 AM INSURANCE CLAIMS SUPERVISOR 11/18/2024 3:24 AM INSURANCE CLAIMS SUPERVISOR Josué Del Valle MD PhD LAB BLOOD ORDERABLES Fin al Result Performing Organization Address [facility] de Phone Number [facility] Department [place] [address] [place] [address] * Magnesium (11/18/2024 2:38 AM INSURANCE CLAIMS SUPERVISOR) Magnesium 1.9 1.4 - 2.5 mg/dL Blood 11/18/2024 2:38 AM INSURANCE CLAIMS SUPERVISOR 11/18/2024 3:24 AM INSURANCE CLAIMS SUPERVISOR Josué Del Valle MD PhD LAB BLOOD ORDERABLES Fin al Result Performing Organization Address [facility] Co de Phone Number [facility] [place] [address] * (ABNORMAL) Basic metabolic panel (11/18/2024 2:38 AM INSURANCE CLAIMS SUPERVISOR) Sodium 143 135 - 145 mmol/L Potassium, pl 4.1 3.3 - 4.9 mmol/L [facility] Chloride 104 97 - 110 mmol/L [facility] CO2 32 22 - 32 mmol/L [facility] Anion gap 7 2 - 15 mmol/L [facility] BUN 20 6 - 25 mg/dL [facility] Creatinine 0.78(L) 0.80 - 1.30 mg/dL [facility] Glucose 117 70 - 199 mg/dL [facility] Comment: Interpretive Data Fasting glucose >/= 126 [...] 2022. Calcium 8.3(L) 8.5 - 10.3 mg/dL [facility] Blood 11/18/2024 2:38 AM INSURANCE CLAIMS SUPERVISOR 11/18/2024 3:24 AM INSURANCE CLAIMS SUPERVISOR Narrative [facility] - 11/18/2024 3:55 AM INSURANCE CLAIMS SUPERVISOR Daily except Saturday and . Morning draw. us Josué Del Valle MD PhD LAB BLOOD ORDERABLES Fin al Result [facility] Department [place] [address] * POCT glucose (11/18/2024 12:47 AM INSURANCE CLAIMS SUPERVISOR) Glucose, POC 125 70 - 199 mg/dL Blood 11/18/2024 12:4 7 AM INSURANCE CLAIMS SUPERVISOR 11/18/2024 12:47 AM INSURANCE CLAIMS SUPERVISOR us Cruz Redding MD PhD LAB POCT ORDERABLES - DEVICE Final Result Performing Organization Address [facility] Co de Phone Number [facility] [address] [place] [address] * POCT glucose (11/17/2024 8:11 PM INSURANCE CLAIMS SUPERVISOR) Glucose, POC 135 70 - 199 mg/dL Blood 11/17/2024 8:11 PM INSURANCE CLAIMS SUPERVISOR 11/17/2024 8:11 PM INSURANCE CLAIMS SUPERVISOR us Cruz Redding MD PhD LAB POCT ORDERABLES - DEVICE Final Result Performing Organization Address [facility] Co de Phone Number [facility] [address] [place] [address] * (ABNORMAL) POCT glucose (11/17/2024 5:32 PM INSURANCE CLAIMS SUPERVISOR) Glucose, POC 229(H) 70 - 199 mg/dL Blood 11/17/2024 5:32 PM INSURANCE CLAIMS SUPERVISOR 11/17/2024 5:32 PM INSURANCE CLAIMS SUPERVISOR Cruz Redding MD PhD LAB POCT ORDERABLES - DEVICE Final Result Performing Organization Address [facility] Co de Phone Number [facility] [address] [place] [address] * POCT glucose (11/17/2024 12:03 PM INSURANCE CLAIMS SUPERVISOR) Glucose, POC 156 70 - 199 mg/dL Blood 11/17/2024 12:0 3 PM INSURANCE CLAIMS SUPERVISOR 11/17/2024 12:03 PM INSURANCE CLAIMS SUPERVISOR Cruz Redding MD PhD LAB POCT ORDERABLES - DEVICE Final Result Performing Organization Address [facility] Co de Phone Number [facility] [address] [place] [address] * POCT glucose (11/17/2024 11:14 AM INSURANCE CLAIMS SUPERVISOR) Glucose, POC 174 70 - 199 mg/dL Blood 11/17/2024 11:1 4 AM INSURANCE CLAIMS SUPERVISOR 11/17/2024 11:14 AM INSURANCE CLAIMS SUPERVISOR Cruz Redding MD PhD LAB POCT ORDERABLES - DEVICE Final Result Performing Organization Address [facility] de Phone Number [facility] Department [place] [address] [place] [address] * POCT glucose (11/17/2024 7:19 AM INSURANCE CLAIMS SUPERVISOR) Glucose, POC 126 70 - 199 mg/dL Blood 11/17/2024 7:19 AM INSURANCE CLAIMS SUPERVISOR 11/17/2024 7:19 AM INSURANCE CLAIMS SUPERVISOR Cruz Redding MD PhD LAB POCT ORDERABLES - DEVICE Final Result Performing Organization Address [facility] de Phone Number [facility] [place] [address] [place] [address] * POCT glucose (11/17/2024 4:32 AM INSURANCE CLAIMS SUPERVISOR) Glucose, POC 159 70 - 199 mg/dL Blood 11/17/2024 4:32 AM INSURANCE CLAIMS SUPERVISOR 11/17/2024 4:32 AM INSURANCE CLAIMS SUPERVISOR Cruz Redding MD PhD LAB POCT ORDERABLES - DEVICE Final Result Performing Organization Address [facility] de Phone Number [facility] [address] [place] [address] * POCT glucose (11/17/2024 12:33 AM INSURANCE CLAIMS SUPERVISOR) Glucose, POC 178 70 - 199 mg/dL Blood 11/17/2024 12:3 3 AM INSURANCE CLAIMS SUPERVISOR 11/17/2024 12:33 AM INSURANCE CLAIMS SUPERVISOR us Cruz Redding MD PhD LAB POCT ORDERABLES - DEVICE Final Result Performing Organization Address [facility] Co de Phone Number [facility] Department [place] [address] [place] [address] * eGFR (11/17/2024 12:31 AM INSURANCE CLAIMS SUPERVISOR) eGFR >90 >=60 mL/min/1. 73 m2 Comment: [...] of Race in Diagnosing Kidney Disease, JASN 202). The CKD-EPI equation should not be used for patients with unstable renal function and has not been validated in children and those over 70. Current interpretive data was last reviewed 2021. Blood 11/17/2024 12:3 1 AM INSURANCE CLAIMS SUPERVISOR 11/17/2024 12:53 AM INSURANCE CLAIMS SUPERVISOR us Josué Del Valle MD PhD LAB BLOOD ORDERABLES Fin al Result Performing Organization Address [facility]/ZIP Co de Phone Number [facility]LEMA [facility] [place] [address] * (ABNORMAL) Manual Differential (11/17/2024 12:31 AM INSURANCE CLAIMS SUPERVISOR) Differential Manual Cells Counted 114 [facility] Neutrophil abs 3.4 1.5 - 6.5 K/cumm [facility] Imm gran abs 0.1 0.0 - 0.1 K/cumm [facility] Lymphocyte abs 2.3 0.8 - 3.3 K/cumm [facility] Monocyte abs 0.6 0.2 - 0.8 K/cumm [facility] Eosinophil abs 0.2 0.0 - 0.5 K/cumm [facility] Neutrophil pct 50.9 % [facility] Comment: Interpretive Data Percent cell count reference ranges are not reported, since discordance with absolute values may lead to misinterpretation of CBC data. Current Interpretive Data was last revised on 2018. Lymphocyte pct 35.1 % [facility] Comment: Interpretive Data Percent cell count reference ranges are not reported, since discordance with absolute values may lead to misinterpretation of CBC data. Current Interpretive Data was last revised on 2018. Monocyte pct 9.6 % [facility] Comment: Interpretive Data Percent cell count reference ranges are not reported, since discordance with absolute values may lead to misinterpretation of CBC data. Current Interpretive Data was last revised on 2018. Eosinophil pct 3.5 % [facility] Comment: Interpretive Data Percent cell count reference ranges are not reported, since discordance with absolute values may lead to misinterpretation of CBC data. Current Interpretive Data was last revised on 2018. Promyelocyte pct 0.9 % [facility] RBC morphology Present(A) [facility] Anisocytosis Marked(A) [facility] Macrocytes > 15/HPF(A) [facility] Platelet estimate Adequate [facility] Blood 11/17/2024 12:3 1 AM INSURANCE CLAIMS SUPERVISOR 11/17/2024 12:49 AM INSURANCE CLAIMS SUPERVISOR us Josué Del Valle MD PhD LAB BLOOD ORDERABLES Arun tamiko Result - Final [facility] [place] [address] * (ABNORMAL) CBC without differential (11/17/2024 12:31 AM INSURANCE CLAIMS SUPERVISOR) WBC 6.6 3.8 - 9.9 K/cumm Hgb 11.6(L) 13.0 - 17.5 g/dL [facility] Hct 35.3(L) 38.9 - 50.3 % [facility] Plt 307 150 - 400 K/cumm [facility] MPV 10.5 9.1 - 12.3 fL [facility] RBC 3.38(L) 4.30 - 5.80 M/cumm [facility] MCV 104.4(H) 81.3 - 96.4 fL [facility] MCH 34.3(H) 27.1 - 33.3 pg [facility] MCHC 32.9 32.3 - 35.7 g/dL [facility] RDW CV 14.7 11.1 - 14.9 % [facility] RDW SD 56.7(H) 35.7 - 48.1 fL [facility] NRBC abs 0.00 0.00 - 0.01 K/cumm [facility] Blood 11/17/2024 12:3 1 AM INSURANCE CLAIMS SUPERVISOR 11/17/2024 12:49 AM INSURANCE CLAIMS SUPERVISOR us Josué Del Valle MD PhD LAB BLOOD ORDERABLES Fin al Result Performing Organization Address City/[facility]/ZIP Co de Phone Number [facility] Department [place] [address] [place] [address] * Uric acid (11/17/2024 12:31 AM INSURANCE CLAIMS SUPERVISOR) Pathologist [facility] Uric acid 6.0 3.0 - 8.0 mg/dL Blood 11/17/2024 12:3 1 AM INSURANCE CLAIMS SUPERVISOR 11/17/2024 12:46 AM INSURANCE CLAIMS SUPERVISOR us Cruz Redding MD PhD LAB BLOOD ORDERABLE S Final Result Performing Organization Address [facility]/ZIP Co de Phone Number [facility] [place] [address] * Phosphorus (11/17/2024 12:31 AM INSURANCE CLAIMS SUPERVISOR) Pathologist [facility] Phosphorus, pl 2.7 2.3 - 4.5 mg/dL Blood 11/17/2024 12:3 1 AM INSURANCE CLAIMS SUPERVISOR 11/17/2024 12:46 AM INSURANCE CLAIMS SUPERVISOR Josué Del Valle MD PhD LAB BLOOD ORDERABLES Fin al Result Performing Organization Address [facility] Co de Phone Number [facility] [address] [place] [address] * Magnesium (11/17/2024 12:31 AM INSURANCE CLAIMS SUPERVISOR) [facility] Magnesium 1.9 1.4 - 2.5 mg/dL Blood 11/17/2024 12:3 1 AM INSURANCE CLAIMS SUPERVISOR 11/17/2024 12:46 AM INSURANCE CLAIMS SUPERVISOR Josué Del Valle MD PhD LAB BLOOD ORDERABLES Fin al Result Performing Organization Address [facility] de Phone Number [facility] [address] [place] [address] * Lactate dehydrogenase (LD) (11/17/2024 12:31 AM INSURANCE CLAIMS SUPERVISOR) [facility] Lactate dehydrogenase (LDH) 220 100 - 250 Units/L Blood 11/17/2024 12:3 1 AM INSURANCE CLAIMS SUPERVISOR 11/17/2024 12:46 AM INSURANCE CLAIMS SUPERVISOR Cruz Redding MD PhD LAB BLOOD ORDERABLE S Final Result Performing Organization Address [facility] Co de Phone Number [facility] [address] [place] [address] * (ABNORMAL) Hemoglobin A1c (11/17/2024 12:31 AM INSURANCE CLAIMS SUPERVISOR) [facility] Hgb A1C 6.0(H) 4.0 - 5.6 % Estimated Average Glucose 126 mg/dL [facility] Comment: The ADA recommends reporting an estimated Average Glucose (eAG) with all Hemoglobin A1c results using the equation derived from a study of 507 normal and diabetic adults. ??Minority populations were underrepresented and children were not included. ?? (Diabetes Care 2020; 43(S1): S66-S76). ??The eAG is not equivalent to a fasting glucose. Blood 11/17/2024 12:3 1 AM INSURANCE CLAIMS SUPERVISOR 11/17/2024 12:52 AM INSURANCE CLAIMS SUPERVISOR Narrative [facility] - 11/17/2024 5:28 PM INSURANCE CLAIMS SUPERVISOR Reflex us Cruz Redding MD PhD LAB BLOOD ORDERABLE S Final Result [facility] [place] [address] * (ABNORMAL) Basic metabolic panel (11/17/2024 12:31 AM INSURANCE CLAIMS SUPERVISOR) Sodium 142 135 - 145 mmol/L Potassium, pl 3.9 3.3 - 4.9 mmol/L [facility] Chloride 101 97 - 110 mmol/L [facility] CO2 33(H) 22 - 32 mmol/L [facility] Anion gap 8 2 - 15 mmol/L [facility] BUN 20 6 - 25 mg/dL [facility] Creatinine 0.66(L) 0.80 - 1.30 mg/dL [facility] Glucose 166 70 - 199 mg/dL [facility] Comment: Interpretive Data Fasting glucose >/= 126 [...] 2022. Calcium 9.4 8.5 - 10.3 mg/dL [facility] Blood 11/17/2024 12:3 1 AM INSURANCE CLAIMS SUPERVISOR 11/17/2024 12:46 AM INSURANCE CLAIMS SUPERVISOR Narrative [facility] - 11/17/2024 1:32 AM INSURANCE CLAIMS SUPERVISOR Daily except Saturday and . Morning draw. us Josué Del Valle MD PhD LAB BLOOD ORDERABLES Fin al Result Performing Organization Address [facility] Co de Phone Number [facility] Department [place] [address] * (ABNORMAL) POCT glucose (11/16/2024 8:43 PM INSURANCE CLAIMS SUPERVISOR) Glucose, POC 231(H) 70 - 199 mg/dL Blood 11/16/2024 8:43 PM INSURANCE CLAIMS SUPERVISOR 11/16/2024 8:43 PM INSURANCE CLAIMS SUPERVISOR Cruz Redding MD PhD LAB POCT ORDERABLES - DEVICE Final Result Performing Organization Address [facility] de Phone Number [facility] [place] [address] * POCT glucose (11/16/2024 5:06 PM INSURANCE CLAIMS SUPERVISOR) Glucose, POC 120 70 - 199 mg/dL Blood 11/16/2024 5:06 PM INSURANCE CLAIMS SUPERVISOR 11/16/2024 5:06 PM INSURANCE CLAIMS SUPERVISOR Cruz Redding MD PhD LAB POCT ORDERABLES - DEVICE Final Result Performing Organization Address [facility] de Phone Number [place] [address] * Surgical pathology (11/16/2024 4:53 PM INSURANCE CLAIMS SUPERVISOR) Tissue (Esophageal biopsy) 11/16/2024 4:53 PM INSURANCE CLAIMS SUPERVISOR Narrative PATHOLOGY [facility] - 11/17/2024 3:51 PM INSURANCE CLAIMS SUPERVISOR EPIC results best viewed via link to PDF [facility] Ramonita Jaramillo Laboratory of Surgical Pathology [facility], [place] [address] Note to Patients: This report may contain [...] ??1965 (Age: 59) Address: ??[address] [place], [place] ??[address] Hospital #: ??[id number] Taken:11/16/2024 Received:11/16/2024 Reported: 11/17/2024 Patient Type: [facility] Inpatient ?? Service: Gastroenterology Location: [facility] ??[id number] Physician(s): ??MD Kirt Romero DO Kellie Hughes, M.D. Diagnosis: A. ??Esophagus, distal, biopsy ? - [...] Surgical Pathology and Flow Cytometry Departments at [facility] as part of an ongoing quality technician fiberglass program and in compliance with federally mandated [...] Surgical Pathology and Flow Cytometry Departments of [facility]. ??It has not been cleared or approved by the U. S. Food and Drug Administration. IMAGES AND SCANNED DOCUMENTS, IF INCLUDED, ONLY VIEWABLE IN PDF VERSION OF REPORT us Hany Martinez MD LAB PATHOLOGY ORDERABLES Final Result [facility] 3rd Floor [place], [place] [phone] * EGD (11/16/2024 4:05 PM INSURANCE CLAIMS SUPERVISOR) Anatomical Region Laterality Modality Other Narrative Procedure Note Hany Martinez MD - 11/16/2024 4:05 PM [facility] Patient Name: Bri Jones Procedure Date: 11/16/2024 4:05 PM Date of : 1965 Admit Type: Outpatient Age: 59 Gender: Male Attending MD: Hany Martinez M.D. Room: [facility] ENDOSCOPY Note Status: Finalized Procedure: Upper GI endoscopy Indications: Foreign body in the esophagus, (food impaction) Referring MD: Cruz Cordero M.D. Providers: Hany Martinez M.D., Mark Bates [...] passed under direct vision. The [id number] [id number] endoscope was introduced through the mouth, and [...] ult * POCT glucose (11/16/2024 3:54 PM INSURANCE CLAIMS SUPERVISOR) Glucose, POC 118 70 - 199 mg/dL Blood 11/16/2024 3:54 PM INSURANCE CLAIMS SUPERVISOR 11/16/2024 3:54 PM INSURANCE CLAIMS SUPERVISOR us Cruz Redding MD PhD LAB POCT ORDERABLES - DEVICE Final Result [facility] Department [place] [address] * POCT glucose (11/16/2024 11:37 AM INSURANCE CLAIMS SUPERVISOR) Glucose, POC 129 70 - 199 mg/dL Blood 11/16/2024 11:3 7 AM INSURANCE CLAIMS SUPERVISOR 11/16/2024 11:37 AM INSURANCE CLAIMS SUPERVISOR us Cruz Redding MD PhD LAB POCT ORDERABLES - DEVICE Final Result [facility] [place] [address] * CT Chest Abdomen W Contrast (11/16/2024 10:32 AM INSURANCE CLAIMS SUPERVISOR) Anatomical Region Laterality Modality Body N/A Computed Tomogra phy 11/16/2024 11:0 1 AM INSURANCE CLAIMS SUPERVISOR Impressions 11/16/2024 11:01 AM INSURANCE CLAIMS SUPERVISOR 1. ??Two areas of segmental thickening of [...] Dominique Richmond M.D. 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 ??Patient has erosive esophagitis presenting with [...] post stem cell transplant in 2008 with uxswf-dvdevq-ktxh disease. Patient has erosive esophagitis presenting with [...] unchanged from 2022 (series 2, image 22). There is unchanged [...] t * POCT glucose (11/16/2024 7:57 AM INSURANCE CLAIMS SUPERVISOR) Glucose, POC 118 70 - 199 mg/dL Blood 11/16/2024 7:57 AM INSURANCE CLAIMS SUPERVISOR 11/16/2024 7:57 AM INSURANCE CLAIMS SUPERVISOR Cruz Redding MD PhD LAB POCT ORDERABLES - DEVICE Final Result Performing Organization Address [facility] de Phone Number [facility] Department [place] [address] [place] [address] * POCT glucose (11/16/2024 3:55 AM INSURANCE CLAIMS SUPERVISOR) [facility] Signature Glucose, POC 123 70 - 199 mg/dL Blood 11/16/2024 3:55 AM INSURANCE CLAIMS SUPERVISOR 11/16/2024 3:55 AM INSURANCE CLAIMS SUPERVISOR Josué Del Valle MD PhD LAB POCT ORDERABLES - DE VICE Final Result Performing Organization Address [facility] de Phone Number [facility] [place] [address] [place] [address] * eGFR (11/16/2024 3:38 AM INSURANCE CLAIMS SUPERVISOR) eGFR >90 >=60 mL/min/1. 73 m2 Comment: [...] last reviewed 2021. Blood 11/16/2024 3:38 AM INSURANCE CLAIMS SUPERVISOR 11/16/2024 4:26 AM INSURANCE CLAIMS SUPERVISOR us Josué Del Valle MD PhD LAB BLOOD ORDERABLES Fin al Result Performing Organization Address [facility] de Phone Number [facility] [place] [address] * aPTT (11/16/2024 3:38 AM INSURANCE CLAIMS SUPERVISOR) aPTT 36 28 - 38 sec Comment: Interpretive Data Heparin therapeutic range: 66.0 - 100.0 seconds. Range based on correlation with therapeutic heparin activity range of 0.3 - 0.7 Units/mL. Current interpretive data was last revised on 2023. Blood 11/16/2024 3:38 AM INSURANCE CLAIMS SUPERVISOR 11/16/2024 4:24 AM INSURANCE CLAIMS SUPERVISOR Josué Del Valle MD PhD LAB BLOOD ORDERABLES Fin al Result Performing Organization Address [facility] Co de Phone Number [facility] [place] [address] [place] [address] * (ABNORMAL) Fibrinogen (11/16/2024 3:38 AM INSURANCE CLAIMS SUPERVISOR) Pathologist [facility] Fibrinogen 771(H) 170 - 400 mg/dL Blood 11/16/2024 3:38 AM INSURANCE CLAIMS SUPERVISOR 11/16/2024 4:24 AM INSURANCE CLAIMS SUPERVISOR Josué Del Valle MD PhD LAB BLOOD ORDERABLES Fin al Result Performing Organization Address [facility] Co de Phone Number [facility] [place] [address] * Type and screen (11/16/2024 3:38 AM INSURANCE CLAIMS SUPERVISOR) Pathologist [facility] Ursula, indirect Negative ABO Rh A Positive [facility] Blood 11/16/2024 3:38 AM INSURANCE CLAIMS SUPERVISOR 11/16/2024 4:18 AM INSURANCE CLAIMS SUPERVISOR Narrative [facility] - 11/16/2024 5:10 AM INSURANCE CLAIMS SUPERVISOR Has the patient had Daratumumab or Isatuximab in the past 6 months?->Unknown Josué Del Valle MD PhD LAB BLOOD BANK TEST ORDE RABLES Final Result Performing Organization Address [facility] de Phone Number [facility] [place] [address] * Uric acid (11/16/2024 3:38 AM INSURANCE CLAIMS SUPERVISOR) [facility] Uric acid 5.8 3.0 - 8.0 mg/dL Blood 11/16/2024 3:38 AM INSURANCE CLAIMS SUPERVISOR 11/16/2024 4:26 AM INSURANCE CLAIMS SUPERVISOR Josué Del Valle MD PhD LAB BLOOD ORDERABLES Fin al Result Performing Organization Address [facility] Co de Phone Number [facility] [place] [address] * Phosphorus (11/16/2024 3:38 AM INSURANCE CLAIMS SUPERVISOR) [facility] Phosphorus, pl 2.9 2.3 - 4.5 mg/dL Blood 11/16/2024 3:38 AM INSURANCE CLAIMS SUPERVISOR 11/16/2024 4:26 AM INSURANCE CLAIMS SUPERVISOR Josué Del Valle MD PhD LAB BLOOD ORDERABLES Fin al Result Performing Organization Address [facility] de Phone Number [facility] [place] [address] [place] [address] * Magnesium (11/16/2024 3:38 AM INSURANCE CLAIMS SUPERVISOR) [facility] Magnesium 1.9 1.4 - 2.5 mg/dL Blood 11/16/2024 3:38 AM INSURANCE CLAIMS SUPERVISOR 11/16/2024 4:26 AM INSURANCE CLAIMS SUPERVISOR Josué Del Valle MD PhD LAB BLOOD ORDERABLES Fin al Result Performing Organization Address [facility] de Phone Number [facility] [place] [address] [place] [address] * Lactate dehydrogenase (LD) (11/16/2024 3:38 AM INSURANCE CLAIMS SUPERVISOR) [facility] Lactate dehydrogenase (LDH) 205 100 - 250 Units/L Blood 11/16/2024 3:38 AM INSURANCE CLAIMS SUPERVISOR 11/16/2024 4:26 AM INSURANCE CLAIMS SUPERVISOR Josué Del Valle MD PhD LAB BLOOD ORDERABLES Fin al Result Performing Organization Address [facility] de Phone Number [facility] [address] [place] [address] * (ABNORMAL) Comprehensive metabolic panel (11/16/2024 3:38 AM INSURANCE CLAIMS SUPERVISOR) [facility] Sodium 142 135 - 145 mmol/L Potassium, pl 4.1 3.3 - 4.9 mmol/L [facility] Chloride 100 97 - 110 mmol/L [facility] CO2 32 22 - 32 mmol/L [facility] Anion gap 10 2 - 15 mmol/L [facility] BUN 20 6 - 25 mg/dL [facility] Creatinine 0.67(L) 0.80 - 1.30 mg/dL [facility] Glucose 129 70 - 199 mg/dL [facility] Comment: Interpretive Data Fasting glucose >/= 126 [...] 2022. Calcium 9.9 8.5 - 10.3 mg/dL [facility] Bilirubin, total 0.4 0.1 - 1.2 mg/dL [facility] Protein, pl 7.7 6.5 - 8.5 g/dL [facility] Albumin 4.0 3.5 - 5.0 g/dL [facility] Alk phos 180(H) 40 - 130 Units/L [facility] ALT 54 7 - 55 Units/L [facility] AST 30 10 - 50 Units/L [facility] Blood 11/16/2024 3:38 AM INSURANCE CLAIMS SUPERVISOR 11/16/2024 4:26 AM INSURANCE CLAIMS SUPERVISOR Narrative [facility] - 11/16/2024 4:58 AM INSURANCE CLAIMS SUPERVISOR Saturday and only. Morning draw. us Josué DelV alle MD PhD LAB BLOOD ORDERABLES Fin al Result [facility] Department [place] [address] * eGFR (11/16/2024 12:13 AM INSURANCE CLAIMS SUPERVISOR) eGFR >90 >=60 mL/min/1. 73 m2 Comment: [...] reviewed 2021. Blood 11/16/2024 12:1 3 AM INSURANCE CLAIMS SUPERVISOR 11/16/2024 12:32 AM INSURANCE CLAIMS SUPERVISOR us Mark Figueroa MD PhD LAB BLOOD ORDERABLE S Final Result Performing Organization Address City/[facility] Co de Phone Number [facility] [place] [address] * Differential, auto (11/16/2024 12:13 AM INSURANCE CLAIMS SUPERVISOR) Neutrophil abs 3.6 1.5 - 6.5 K/cumm Imm gran abs 0.0 0.0 - 0.1 K/cumm [facility] Lymphocyte abs 2.8 0.8 - 3.3 K/cumm [facility] Monocyte abs 0.7 0.2 - 0.8 K/cumm [facility] Eosinophil abs 0.2 0.0 - 0.5 K/cumm [facility] Basophil abs 0.1 0.0 - 0.1 K/cumm [facility] Neutrophil pct 49.1 % [facility] Comment: Interpretive Data Percent cell count reference ranges are not reported, since discordance with absolute values may lead to misinterpretation of CBC data. Current Interpretive Data was last revised on 2018. Imm gran pct 0.4 % [facility] Comment: Interpretive Data Percent cell count reference ranges are not reported, since discordance with absolute values may lead to misinterpretation of CBC data. Current Interpretive Data was last revised on 2018. Lymphocyte pct 37.9 % [facility] Comment: Interpretive Data Percent cell count reference ranges are not reported, since discordance with absolute values may lead to misinterpretation of CBC data. Current Interpretive Data was last revised on 2018. Monocyte pct 8.9 % [facility] Comment: Interpretive Data Percent cell count reference ranges are not reported, since discordance with absolute values may lead to misinterpretation of CBC data. Current Interpretive Data was last revised on 2018. Eosinophil pct 3.0 % [facility] Comment: Interpretive Data Percent cell count reference ranges are not reported, since discordance with absolute values may lead to misinterpretation of CBC data. Current Interpretive Data was last revised on 2018. Basophil pct 0.7 % [facility] Comment: Interpretive Data Percent cell count reference ranges are not reported, since discordance with absolute values may lead to misinterpretation of CBC data. Current Interpretive Data was last revised on 2018. Blood 11/16/2024 12:1 3 AM INSURANCE CLAIMS SUPERVISOR 11/16/2024 12:32 AM INSURANCE CLAIMS SUPERVISOR us Mark Figueroa MD PhD LAB BLOOD ORDERABLE S Final Result [facility] Department of Laboratories [place], [place] [id number] * (ABNORMAL) CBC with auto differential (11/16/2024 12:13 AM INSURANCE CLAIMS SUPERVISOR) WBC 7.3 3.8 - 9.9 K/cumm Hgb 13.1 13.0 - 17.5 g/dL [facility] Hct 39.0 38.9 - 50.3 % [facility] Plt 314 150 - 400 K/cumm [facility] MPV 10.4 9.1 - 12.3 fL [facility] RBC 3.69(L) 4.30 - 5.80 M/cumm [facility] MCV 105.7(H) 81.3 - 96.4 fL [facility] MCH 35.5(H) 27.1 - 33.3 pg [facility] MCHC 33.6 32.3 - 35.7 g/dL [facility] RDW CV 15.1(H) 11.1 - 14.9 % [facility] RDW SD 58.9(H) 35.7 - 48.1 fL [facility] NRBC abs 0.02(H) 0.00 - 0.01 K/cumm [facility] Blood 11/16/2024 12:1 3 AM INSURANCE CLAIMS SUPERVISOR 11/16/2024 12:32 AM INSURANCE CLAIMS SUPERVISOR us Mark Figueroa MD PhD LAB BLOOD ORDERABLE S Final Result Performing Organization Address City/State/[facility] Co de Phone Number [facility] [place] [address] * Protime-INR (11/16/2024 12:13 AM INSURANCE CLAIMS SUPERVISOR) PT 10.6 9.7 - 13.0 sec INR 0.98 0.90 - 1.20 [facility] Comment: Interpretive data Oral anticoagulant therapeutic ranges: Venous thromboembolism prophylaxis or treatment: 2.0-3.0 CARDIOLOGY Standard range: 2.0-3.0 High-intensity range: 2.5-3.5 Refer to indication-specific guidelines for appropriate target ranges for prosthetic heart valve replacement. Current interpretive data was last revised on 2019. Blood 11/16/2024 12:1 3 AM INSURANCE CLAIMS SUPERVISOR 11/16/2024 12:35 AM INSURANCE CLAIMS SUPERVISOR Mark Figueroa MD PhD LAB BLOOD ORDERABLE S Final Result [facility] [place] [address] * (ABNORMAL) Basic metabolic panel (11/16/2024 12:13 AM INSURANCE CLAIMS SUPERVISOR) Pathologist [facility] Sodium 140 135 - 145 mmol/L Potassium, pl 4.8 3.3 - 4.9 mmol/L [facility] Comment:Hemolyzed; Potassium value may be falsely elevated by as much as 0.3-0.5 mmol/L. Suggest redraw and reanalysis. Chloride 100 97 - 110 mmol/L [facility] CO2 28 22 - 32 mmol/L [facility] Anion gap 12 2 - 15 mmol/L [facility] BUN 19 6 - 25 mg/dL [facility] Creatinine 0.63(L) 0.80 - 1.30 mg/dL [facility] Glucose 133 70 - 199 mg/dL [facility] Comment: Interpretive Data Fasting glucose >/= 126 [...] 2022. Calcium 9.9 8.5 - 10.3 mg/dL [facility] Blood 11/16/2024 12:1 3 AM INSURANCE CLAIMS SUPERVISOR 11/16/2024 12:32 AM INSURANCE CLAIMS SUPERVISOR us Mark Figueroa MD PhD LAB BLOOD ORDERABLE S Final Result [facility] [place] [address] * POCT glucose (11/16/2024 12:12 AM INSURANCE CLAIMS SUPERVISOR) Glucose, POC 130 70 - 199 mg/dL Blood 11/16/2024 12:1 2 AM INSURANCE CLAIMS SUPERVISOR 11/16/2024 12:12 AM INSURANCE CLAIMS SUPERVISOR us Josué Del Valle MD PhD LAB POCT ORDERABLES - DE VICE Final Result [facility] [place] [address] * Lipid panel (07/14/2024 6:22 PM CDT) Pathologist [facility] Cholesterol 89 30 - 199 mg/dL Comment: [...] on 2018. Triglycerides 89 <=149 mg/dL [facility] Comment: Interpretive Data Ages [...] Lance et al. CÉSAR Cardiol. 2020 March 18;5(5):540545. doi: 10.1001/jamacardio.2020.0013 Current Interpretive Data was last revised on 2024. Non-HDL Cholesterol 41 mg/dL [facility] Comment: Interpretive Data Ages < [...] revised on 2018. Chol/HDL ratio 2 [facility] Blood 07/14/2024 6:22 PM CDT 07/14/2024 9:07 PM CDT us Cameron BERNAL LAB BLOOD ORDERABLES Final R esult [facility] [address] [facility] Department of Laboratories [place], [place] [id number] * Albumin Creatinine Ratio, Urine (02/28/2022 8:57 AM CDT) Albumin Ur <12.0 mg/L [facility] Comment: Interpretive Data No reference range established. Current interpretive data was last revised 2019. Creatinine Ur 42.0 mg/dL [facility] Comment: Interpretive Data No reference range established. Current interpretive data was last revised 2019. Albumin Creatinine Ratio, Ur <29 1 - 29 mg/g [facility] Urine 02/28/2022 8:57 AM CDT 02/28/2022 1:[address] Montejo MD LAB URINE ORDERABLES Final Resu lt Performing Organization Address [facility]/ZIP Co de Phone Number [facility] [place] [address] [place] [address] * Hepatitis panel, acute (09/07/2021 4:28 AM CDT) Hep A IgM Nonreactive Nonreactive [facility] Comment: Interpretive Data: If Hep A IgM [...] on 20. Hep C Ab Nonreactive Nonreactive [facility] Comment:Antibodies to HCV no t detected. Does NOT exclude the possibility of recent exposure to HCV. HepBsAg Nonreactive Nonreactive [facility] Blood 09/07/2021 4:28 AM CDT 09/07/2021 4:44 AM CDT Anaid Kruse MD LAB MICROBIOL OGY - GENERAL ORDERABLES Edited Result - Final Performing Organization Address [facility] Co de Phone Number [facility] [address] [place] [address] * PSA screen (02/04/2017 8:36 AM CDT) PSA-Total 0.7 0.1 - 4.0 ng/mL [facility] Blood specimen (specimen) 02/04/2017 8:36 AM CDT 02/04/2017 9:05 AM CDT Josué Del Valle MD PhD LAB BLOOD ORDERABLES Fin al Result Performing Organization Address [facility] Co de Phone Number [facility] [place] [address] from Last 3 Months or Most Recently Relevant to Health Maintenance Additional Health Concerns Infection Onset 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 Insurance MEDICARE [employer] MEDICARE SOLUTIONS [facility] MEDICARE SOLUTIONS MEDICARE SOLUTIONS IDPA Advance Directives For more information, please contact: [phone] * Full Code (Latest Code Status on [...] 11:29 AM 06/24/2024 11:01 PM Care Teams Compliance Representative Relationship Specialty Start Date End Date Kirt Lindsay, PCP - General Internal Medicine 02/02/21 Josué Del Valle MD PhD Medical Oncologist/Oncology Rep Specialist Medical Oncology 08/26/19 Cal Carranza DO [address] [place] [address] [id number] Artificial Stone Applicator Internal Medicine 06/12/23 Halie Khan MD [address] [place] [address] Inspection And Testing Supervisor Critical Care Med 06/12/23 Wilfred Kinsey MD [address] [address] Consulting Physician Gastroenterology 03/02/24
--- OUTSIDE RECORDS SUMMARY | 2024-11-22 10:44 | XMS_ITS | Encounter Summary ---
Author Organization [facility] Address [address] [facility] [address] [place] [address] Phone Care Team Providers Care Almond Grinder Name Role Phone Josué Del Valle MD PhD Unavailable [phone] Kirt Lindsay DO Primary Care Provider [phone] Cal Carranza DO Unavailable Halie Khan MD Unavailable [phone] Wilfred Kinsey MD Unavailable Encounter Details Date Type Department Care Team (Late st Contact Info) Description 08/24/[address] [facility] Infectious Diseases [address] [place] [id number] aPge Marsh Social History Tobacco Use Types Packs/Day Years Used Date Smoking Tobacco: Some Days Cigarettes 0.5 40.4 Started: 1985 Smokeless Tobacco: Never Comments:pt states tried to quit; smoking 5 cigs/wk [facility] Utilities Answer Date Recorded In the past 12 months has [employer] electric, gas, oil, or water company threatened to shut off services in your home? No 07/24/2024 Social Connection and Isolation Panel [NHANES] A nswer Date Recorded In a typical week, how many times do you talk on the phone with family, friends, or neighbors? Twice a week 07/24/2024 How often do you get together with friends or re latives? Once a week 07/24/2024 How often do you attend bahai or evangelical serv ices? Never 07/24/2024 Do you belong to any clubs o r organizations such as bahai groups, unions, fraternal or athletic groups, or school groups? No 07/24/2024 How often do you attend meet ings of the clubs or organizations you belong to? Never 07/24/2024 Are you , , di vorced, , never , or living with a partner? 07/24/2024 AUDIT-C Answer Date Recorded Q1: How often [...] medical care, and heating? Not very hard 07/24/2024 PHQ-2 Answer Date Recorded PHQ-2 Total Score 0 07/24/2024 Hunger Vital Sign Answer Date Recorded Within the past 12 months, y ou worried that your food would run out before you got the money to buy more. Never true 07/24/20 24 Within the past 12 months, t he food you bought just didn't last and you didn't have money to get more. Never true 07/24/2024 PRAPARE - Transportation Answer Date Re corded In the past 12 months, has l ack of transportation kept you from medical appointments or from getting medications? No 04/2024 In the past 12 months, has l ack of transportation kept you from meetings, work, or from getting things needed for daily living? No 07/24/2024 Housing Stability Vital Sign Answer [place] [...] place to sleep or slept in a nursing home (including now)? No 03/30/2024 Housing Stability Vital Sign Answer [place] e Recorded In the last 12 months, was t here a time when you were not able to pay the mortgage or rent on time? No 07/24/2024 In the past 12 months, how m any times have you moved where you were living? 0 07/24/2024 At any time in the past 12 m ont, were you homeless or living in a nursing home (including now)? No 07/24/2024 Personal Safety Answer Date Recorded Have you ever been in or are you currently in a harmful physical or emotional relationship or is someone making you feel afraid or unsafe? 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 documented as of this encounter Care Teams Almond Grinder Relationship Specialty Start Date End Date Kirt Lindsay DO PCP - General Internal Medicine 02/02/21 Josué Del Valle MD PhD Medical Oncologist/Cylinder Valve Repairer Medical Oncology 08/26/19 Cal Carranza DO [address] [address] Sales Driver Internal Medicine 06/12/23 Halie Khan MD [address] [facility] [address] [address] Allocation Analyst Critical Care Med 06/12/23 Wilfred Kinsey MD [address] [address] Consulting Physician Gastroenterology 03/02/24 documented as of this encounter
--- OUTSIDE RECORDS SUMMARY | 2024-11-22 10:44 | XMS_ITS | Encounter Summary ---
Author Organization [facility] Address [address] [facility] [address] [place] [address] Phone Care Team Providers Care Neck Band Setter Name Role Phone Josué Del Valle MD PhD Unavailable Kirt Lindsay DO Primary Care Provider [phone] Cal Carranza DO Unavailable [phone] Halie Khan MD Unavailable [phone] Wilfred Kinsey MD Unavailable Encounter Details Date Type Department Care Team (Late st Contact Info) Description 08/24/2024 Documentation [facility] Infectious Diseases [address] [place] [id number] Page Marsh Social History Tobacco Use Types Packs/Day Years Used Date Smoking Tobacco: Some Days Cigarettes 0.5 40.4 Started: 1985 Smokeless Tobacco: Never Comments:pt states tried to quit; smoking 5 cigs/wk [facility] Utilities Answer Date Recorded In the past 12 months has [employer] electric, gas, oil, or water company threatened [...] week 07/24/2024 How often do you attend catholic or christianity serv ices? Never 07/24/2024 Do you belong to any clubs o r organizations such as catholic groups, unions, fraternal or athletic groups, or [...] place to sleep or slept in a skilled nursing (including now)? No 03/30/2024 Housing Stability Vital [...] were you homeless or living in a skilled nursing (including now)? No 07/24/2024 Personal Safety Answer Date Recorded Have you ever been in or are you currently in a harmful physical or emotional relationship or is someone making you feel afraid or unsafe? 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 Gender Identity Not on file Sexual Orientation Not on file documented as of this encounter Progress Notes * Page Marsh - 08/24/2024 11:23 AM CDT ID OPAT Progress/Monitoring Note Antimicrobials Care Coordination Monitoring/Events Comments OPAT Comments 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
--- OUTSIDE RECORDS SUMMARY | 2024-11-22 10:44 | XMS_ITS | Encounter Summary ---
Author Organization [facility] Address [address] [place] [address] Phone Care Team Providers Care Marble Chip Terrazzo Worker Name Role Phone Josué Del Valle MD PhD Unavailable Kirt Lindsay DO Primary Care Provider [phone] Cal Carranza DO Unavailable [phone] Halie Khan MD Unavailable [phone] Wilfred Kinsey MD Unavailable Encounter Details Date Type Department Care Team (Late st Contact Info) Description 08/19/2024 Telephone [facility] Bone Marrow Transplant [address] [facility] Advanced Medicine 7th Floor, [place] [address] Josué Del Valle MD PhD [address] DIV IM BONE MARROW TRANSPLANT, [address] [place] [address] Social History Tobacco Use Types Packs/Day Years Used Date Smoking Tobacco: Some Days Cigarettes 0.5 40.4 Started: 1985 Smokeless Tobacco: Never Comments:pt states tried to quit; smoking 5 cigs/wk [facility] Utilities Answer Date Recorded In the past 12 months has th e electric, gas, oil, or water company threatened [...] week 07/24/2024 How often do you attend congregation or pentecostal serv ices? Never 07/24/2024 Do you belong to any clubs o r organizations such as congregation groups, unions, fraternal or athletic groups, or [...] place to sleep or slept in a detention (including now)? No 03/30/2024 Housing Stability Vital Sign Answer Mor[place] e Recorded In the last 12 months, was t here a time when you were not able to pay the mortgage or rent on time? No 07/24/2024 In the past 12 months, how m any times have you moved where you were living? 0 07/24/2024 At any time in the past 12 m [facility], were you homeless or living in a detention (including now)? No 07/24/2024 Personal Safety Answer Date Recorded Have you ever been in or are you currently in a harmful physical or emotional relationship or is someone making you feel afraid or unsafe? 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 Please call to reschedule. 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 documented as of this encounter Care Teams Marble Chip Terrazzo Worker Relationship Specialty Start Date End Date Kirt Lindsay DO PCP - General Internal Medicine 02/02/21 Josué Del Valle MD PhD Medical Oncologist/Slp Teacher Medical Oncology 08/26/19 Cal Carranza DO [address] [id number] Mixer Foam Rubber Internal Medicine 06/12/23 Halie Khan MD [address] [id number] Dumpling Machine Operator Critical Care Med 06/12/23 Wilfred Kinsey MD [address] [address] Consulting Physician Gastroenterology 03/02/24 documented as of this encounter
--- OUTSIDE RECORDS SUMMARY | 2024-11-22 10:44 | XMS_ITS ---
Author Organization [facility] Address [address] [place] [address] Care Team Providers Care Resp Therapist Name Role Phone Josué Del Valle MD PhD Unavailable Kirt Lindsay DO Primary Care Provider [phone] Cal Carranza DO Unavailable [phone] Halie Khan MD Unavailable [phone] Wilfred Kinsey MD Unavailable Active Problems Patient Care Coordination No te Formatting of this note is d ifferent from the original. 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 HLA typing/IDMs Insurance Approvals/Issues Discharge Planning Anticipated Discharge Date 08/03 Patient Education Completed Issue to be Resolved Before Discharge Discharge Disposition Home Requests Sent to Case Management and/or Medical Assistants CM: for IV amicasin Post-Discharge Follow-Up Living Situation/Distance from [place], [place] (local) Caregiver Lab/Transfusion Frequency Phone: Fax: Venous Access & Care peripheral Local Oncologist Contact Phone: Fax: Post-Discharge Office Visit (H30) JFD 12/09 w/ WATCH AND CLOCK MAKER AND REPAIRER Jame Miscellaneous Notes: Problem Noted Date Diagnosed Date 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 CAD (coronary artery disease) 11/16/2024 Assessment & Plan (11/18/2024 10:42 AM MANAGER CRITICAL CARE UNIT): S/p PCI to RCA in 2022 -cont [...] for 4d of worsening SOB. Presented to [facility] ED 07/19 for SOB and treated for COPD exac with pred course. Presented to [place] on 07/21 for worsening SOB. CXR and [...] 06/19/2024 Assessment & Plan (11/17/2024 12:22 PM MANAGER CRITICAL CARE UNIT): Follows with ID; last seen in clinic [...] staff message to his ID doctor (Kimberly Frazier NP) regarding his actual current regimen - alternatively [...] now with expectation of submitting this to [facility] lab on ~07/13. Beginning empiric therapy therapy [...] 06/16/2024 Assessment & Plan (11/17/2024 12:22 PM MANAGER CRITICAL CARE UNIT): RD following Assessment & Plan (07/24/2024 1:02 [...] 02/20/2024 Assessment & Plan (11/18/2024 10:43 AM MANAGER CRITICAL CARE UNIT): After eating chicken/spaghetti on 11/14 felt pressure/stuck [...] disease) Assessment & Plan (11/17/2024 12:17 PM MANAGER CRITICAL CARE UNIT): He has Ventolin inhaler, Trelegy inhaler, albuterol inhaler, and Singulair 10 a day. On 3L oxygen at home Biliary sludge 12/20/2021 Overview (12/20/2021): Added automatically from request for surgery [id number] Other osteoporosis without current pathological fracture 11/23/2021 Encounter for removal of biliary stent Overview (10/03/2021): Added automatically from request for surgery [id number] Elevated LFTs 09/08/2021 Assessment & Plan (09/10/2021 [...] and PE in 2012. Had IJ DVT 2018 - Continues on Xarelto Assessment & Plan (09/08/2021 12:16 PM CDT): History of PE/DVT -history of DVT 2012, 2018, PE in 2012 -hold Xarelto due to GI bleed Abdominal pain 09/07/2021 Overview (09/07/2021): Added automatically from request for surgery [id number] Assessment & Plan (07/25/2024 12:01 PM CDT): - Recent hx pancreatitis admission without obvious source. Pain was slowly recurring in the last few days. Lipase was WNL at LFTs wnl at OSH and wnl on repeat here. Improving. - Pain control. - Tolerating mechanical soft diet Upper GI bleed 09/07/2021 Overview (09/07/2021): Added automatically from request for surgery [id number] Assessment & Plan (09/10/2021 9:18 AM CDT): [...] (03/30/2021): Added automatically from request for surgery [id number] Assessment & Plan (08/09/2021 10:27 AM CDT): [...] (06/16-06/20) Assessment & Plan (11/26/2019 10:45 AM MANAGER CRITICAL CARE UNIT): POA. Possibly community-acquired and/or 2/[address] Strep pneumoniae pos sputum cx. See SOB problem. Shortness of breath 11/20/2019 Assessment & Plan (11/27/2019 12:14 PM MANAGER CRITICAL CARE UNIT): Concern for poss GVHD and/or poss COPD [...] Walking O2 assessment CHF (congestive heart failure) ([facility]) 020 Assessment & Plan (11/16/2024 3:06 AM MANAGER CRITICAL CARE UNIT): Euvolemic on exam currently; no new SOB - continue metop, jardiance Assessment & Plan (07/26/2024 11:49 AM CDT): TTE 03/2024 with LVEF 50-55%. Pro BNP at OSH >30k. Last adm here 1012. Appears euvolemic. S/p Lasix at OSH and [place] [address] - repeat TTE 07/24: LVEF 30%, moderate [...] 1012 Assessment & Plan (11/28/2019 10:27 AM MANAGER CRITICAL CARE UNIT): Closely monitor blood sugar to avoid hypoglycemia Assessment & Plan (11/27/2019 1:35 PM MANAGER CRITICAL CARE UNIT): Closely monitor blood sugar to avoid hypoglycemia Assessment & Plan (11/26/2019 5:32 PM MANAGER CRITICAL CARE UNIT): Closely monitor blood sugar to avoid hypoglycemia Assessment & Plan (11/25/2019 4:51 PM MANAGER CRITICAL CARE UNIT): Closely monitor blood sugar to avoid hypoglycemia Assessment & Plan (11/24/2019 4:57 PM MANAGER CRITICAL CARE UNIT): Closely monitor blood sugar to avoid hypoglycemia Assessment & Plan (11/23/2019 2:01 PM MANAGER CRITICAL CARE UNIT): Closely monitor blood sugar to avoid hypoglycemia Assessment & Plan (11/24/2019 10:51 AM MANAGER CRITICAL CARE UNIT): With diastolic dysfunction, new diagnosis. -Continue Lasix. [...] TID Assessment & Plan (11/20/2019 4:17 PM MANAGER CRITICAL CARE UNIT): Continue gabapentin Tobacco abuse 11/20/2019 Assessment & Plan (06/16/2024 6:44 PM CDT): Encourage cessation Assessment & Plan (11/20/2019 4:18 PM MANAGER CRITICAL CARE UNIT): Nicotine patch Depressed mood 11/24/2018 Assessment & Plan (11/24/2018 4:56 PM MANAGER CRITICAL CARE UNIT): With feelings of depressed mood prior to [...] recommended pharm therapy. DVT (deep venous thrombosis) ([facility]) 9 Assessment & Plan (11/18/2024 10:42 AM MANAGER CRITICAL CARE UNIT): DVT lower ext 2012, DVT IJ 2018, PE 02/02/2013. - He is on Xarelto [...] Xeralto Assessment & Plan (11/20/2019 3:57 PM MANAGER CRITICAL CARE UNIT): Continue xarelto Assessment & Plan (11/23/2018 11:32 AM MANAGER CRITICAL CARE UNIT): Cont Xarelto. Sinusitis 11/22/2018 Assessment & Plan (11/24/2018 4:48 PM MANAGER CRITICAL CARE UNIT): Chronic issue over last 2 months. -With [...] shows no PE-->no pneumonia. COPD with exacerbation ([facility]) 11/22/2018 Assessment & Plan (07/24/2024 1:00 [...] exertion Assessment & Plan (11/20/2019 4:16 PM MANAGER CRITICAL CARE UNIT): Continue inhalers Assessment & Plan (11/23/2018 11:29 AM MANAGER CRITICAL CARE UNIT): Continues to smoke >1 ppd. -Cont steroids at current dose. -Cont Advair diskus BID, cont albuterol inh QID. -Encourage smoking cessation. Cont nicotine patch. Cough 10/17/2018 Pure hypercholesterolemia 08/04/2018 Assessment & Plan (02/12/2022 6:02 AM CDT): - continue home dose atorvastatin 40 mg PO daily Assessment & Plan (01/15/2020 3:22 PM MANAGER CRITICAL CARE UNIT): -LDL at goal -will continue atorvastatin 40 mg daily Assessment & Plan (11/28/2019 10:27 AM MANAGER CRITICAL CARE UNIT): On atorvastatin 40 mg daily Assessment & Plan (11/27/2019 1:35 PM MANAGER CRITICAL CARE UNIT): On atorvastatin 40 mg daily Assessment & Plan (11/26/2019 5:32 PM MANAGER CRITICAL CARE UNIT): On atorvastatin 40 mg daily Assessment & Plan (11/25/2019 4:50 PM MANAGER CRITICAL CARE UNIT): On atorvastatin 40 mg daily Assessment & Plan (11/24/2019 4:57 PM MANAGER CRITICAL CARE UNIT): On atorvastatin 40 mg daily Assessment & Plan (11/23/2019 2:02 PM MANAGER CRITICAL CARE UNIT): On atorvastatin 40 mg daily Assessment & Plan (11/20/2019 4:18 PM MANAGER CRITICAL CARE UNIT): Continue statin Assessment & Plan (08/07/2019 1:35 [...] level Assessment & Plan (01/15/2020 3:22 PM MANAGER CRITICAL CARE UNIT): -vitamin D levels still low, unclear compliance -will continue current regimen Assessment & Plan (11/28/2019 10:29 AM MANAGER CRITICAL CARE UNIT): Last vitamin-D level low at 16. Continue vitamin D2 07745 units weekly and vitamin D3 2000 units daily Assessment & Plan (11/27/2019 1:35 PM MANAGER CRITICAL CARE UNIT): Last vitamin-D level low at 16. Continue vitamin D2 18335 units weekly and vitamin D3 2000 units daily Assessment & Plan (11/26/2019 5:32 PM MANAGER CRITICAL CARE UNIT): Last vitamin-D level low at 16. Continue vitamin D2 52288 units weekly and vitamin D3 2000 units daily Assessment & Plan (11/25/2019 4:51 PM MANAGER CRITICAL CARE UNIT): Last vitamin-D level low at 16. Continue vitamin D2 92690 units weekly and vitamin D3 2000 units daily Assessment & Plan (11/24/2019 4:57 PM MANAGER CRITICAL CARE UNIT): Last vitamin-D level low at 16. Continue vitamin D2 45313 units weekly and vitamin D3 2000 units daily Assessment & Plan (11/23/2019 2:02 PM MANAGER CRITICAL CARE UNIT): Last vitamin-D level low at 16. Continue vitamin D2 72495 units weekly and vitamin D3 2000 units [...] 200805/06/2018 Assessment & Plan (11/18/2024 10:41 AM MANAGER CRITICAL CARE UNIT): AML. S/p 7+3 and hidac consolidation x3, decitabine maintenance on [place] [address]148 protocol. Had relapse s/p AMD/MEC. 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 -Last seen by Dr. Del Valle 06/12/23, in remission - acyclovir 400 t.i.d and antifungal ppx with voriconazole vs cresemba. Plan med rec w Coordinate Measuring Machine Technician today Assessment & Plan (06/17/2024 3:28 PM CDT): Follows Dr. Bauman, last seen in clinic on 06/09/2023 -AML diagnosed in 2008 s/p 7+3 and HiDAC consolidation x3 followed by Decitabine maintenance on the CALGB [address]6030 protocol. -Followed by Relapsed disease, status post [...] followed by Decitabine maintenance on the CALGB [address]27[address] protocol. 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 voriconazole 200 b.i.d Assessment & Plan (09/10/2021 9:20 AM CDT): -S/p Busulfan and Cytoxan on the AMD allogeneic study with his sister, 10 match; with day 0 on 11/09/2009??after induction with 7+3 and HiDAC consolidation x3.??Followed by??Decitabine maintenance on the CALGB 98296 protocol??and relapsed disease, status post AMD/MEC. -??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Most recent BMBx in our records is from 12/12/2017 with neg path and flow -OI prophylaxis, acyclovir Assessment & Plan (08/17/2021 3:45 PM CDT): S/p Busulfan and Cytoxan on the [facility] allogeneic study with his sister, 08/27 match; with day 0 on 11/09/2009 after induction with 7+3 and HiDAC consolidation x3. Followed by Decitabine maintenance on the CALGB 34595 protocol and relapsed disease, status post AMD/MEC. 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 -??Relapsed disease,??status post an allogeneic transplant with busulfan and Cytoxan on the [facility] allogeneic study with his sister, 08/27 match; with day 0 on 11/09/2009.?? - Currently in remission. Follows with Dr. Del Valle - On tacro, cellcept - OI ppx: Cont acyclovir. Added vori and bactrim (pt stated he was no longer taking at home). Assessment & Plan (11/23/2018 11:24 AM MANAGER CRITICAL CARE UNIT): -s/p sibling allo SCT on 11/09/09, now in CR with no e/o recurrence. 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 -Cont OI ppx with Bactrim, acyclovir. Type 2 diabetes mellitus 05/06/2018 Assessment & Plan (11/18/2024 10:43 AM MANAGER CRITICAL CARE UNIT): On lantus/humalog at home (he reports taking [...] steroids Assessment & Plan (01/15/2020 3:24 PM MANAGER CRITICAL CARE UNIT): -poorly controlled, exacerbated by prednisone use -Hgb [...] goal Assessment & Plan (11/28/2019 10:29 AM MANAGER CRITICAL CARE UNIT): Patient has uncontrolled type 2 diabetes with [...] education. Assessment & Plan (11/27/2019 1:35 PM MANAGER CRITICAL CARE UNIT): Patient has uncontrolled type 2 diabetes with [...] education. Assessment & Plan (11/26/2019 5:32 PM MANAGER CRITICAL CARE UNIT): Patient has uncontrolled type 2 diabetes with [...] here. Assessment & Plan (11/25/2019 4:50 PM MANAGER CRITICAL CARE UNIT): Patient has uncontrolled type 2 diabetes with [...] here. Assessment & Plan (11/24/2019 4:57 PM MANAGER CRITICAL CARE UNIT): Patient has uncontrolled type 2 diabetes with [...] here. Assessment & Plan (11/23/2019 2:01 PM MANAGER CRITICAL CARE UNIT): Patient has uncontrolled type 2 diabetes with [...] here. Assessment & Plan (11/28/2019 9:33 AM MANAGER CRITICAL CARE UNIT): On basaglar 30 units AM and novolog [...] goal Assessment & Plan (11/24/2018 4:59 PM MANAGER CRITICAL CARE UNIT): -Poorly controlled, recently stopped checking glucose as [...] needles and sent e-script to [facility] in [place] on 11/24. Pt has script for glucose [...] takes acyclovir and voriconazole for medical ppx Qhyth-ljwqzl-vavp disease 07/08/2012 Assessment & Plan (06/18/2024 12:56 [...] daily Assessment & Plan (11/28/2019 10:27 AM MANAGER CRITICAL CARE UNIT): Prednisone decreased to 20 mg daily Assessment & Plan (11/27/2019 1:32 PM MANAGER CRITICAL CARE UNIT): Prednisone decreased to 20 mg daily Assessment & Plan (11/26/2019 5:31 PM MANAGER CRITICAL CARE UNIT): Plan to taper prednisone to 20 mg daily Assessment & Plan (11/25/2019 4:49 PM MANAGER CRITICAL CARE UNIT): He is on prednisone 20 mg BID Assessment & Plan (11/24/2019 4:54 PM MANAGER CRITICAL CARE UNIT): He is on prednisone 20 mg BID Assessment & Plan (11/23/2019 2:01 PM MANAGER CRITICAL CARE UNIT): Starting on prednisone 20 twice daily today Assessment & Plan (11/27/2019 12:13 PM MANAGER CRITICAL CARE UNIT): Continue cellcept 1 g BID and tacrolimus??0.5 [...] 3x/weekly Assessment & Plan (11/24/2018 11:50 AM MANAGER CRITICAL CARE UNIT): cGVHD of eyes, mouth, 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 -Cont pred 10 mg BID, MMF 1g BID, tacrolimus 0.5 mg QOD. -F/u tac trough (due 1/8 AM). Osteopenia 11/27/2011 Assessment & Plan (01/15/2020 3:23 PM MANAGER CRITICAL CARE UNIT): -DEXA scan done 07/2019 revealed stable BMD -will continue vitamin D supplementation and dietary calcium Assessment & Plan (11/20/2019 3:55 PM MANAGER CRITICAL CARE UNIT): Continue home vitamin D and dietary calcium [...] the importance of smoking cessation and exercise Current Oncology Plans BMT Adult Blood and Platelet Administration for Inpatient* Plan Start Date: 11/16/2024 Plan Provider:Brina Gandara MD Linked Problems 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) Treatment Medications No medications scheduled. Past Plans Line Care Plan Name Start Date Discontinue Date Treatment Medications Discontinue Reason Plan Provider IV MAINTENANCE THERAPY PLAN 08/22/2019 01/28/2024 No medications scheduled. Automatic discontinuation of dormant plans Josué Del Valle MD PhD Radiation Treatments * No radiation treatments are documented for this patient in [facility]. Treatments may have been administered in another system. Lifetime Dose Tracking * Chemical Lifetime Dose Automatic Entry Manual Entr y Radiation 190 mSv 190 mSv 0 mSv Fluoro Time 4.4 minutes 4.4 minutes 0 minutes Air kerma at the reference point (Ka,r) 145 mGy 1 45 mGy 0 mGy DLP 4,795 mGycm 4,795 mGycm 0 mGycm Resolved Problems Problem Noted Date Diagnosed Date Resolved Date Beltran catheter in place 07/24/202405/2024 Assessment & Plan (07/24/2024 1:14 PM CDT): Noted beltran catheter in place. Unsure of reason of beltran placement overnight. Without urinary retention or incomplete emptying. No beltran cath placement order found. -remove beltran today with voiding trial
--- OUTSIDE RECORDS SUMMARY | 2024-11-22 10:44 | XMS_ITS | Encounter Summary ---
Author Organization [facility] Healthcare Address [address] [place] [address] Care Team Providers Care Landscape Designer Name Role Phone Josué Del Valle MD PhD Unavailable [phone] Kirt Lindsay DO Primary Care Provider [phone] Cal Carranza DO Unavailable [phone] Halie Khan MD Unavailable [phone] Wilfred Kinsey MD Unavailable Encounter Details Date Type Department Care Team (Late st Contact Info) Description 09/01/2024 Orders Only [facility] Home Care Services [address] [place] [address] Birgit Waldron, [facility] Social History Tobacco Use Types Packs/Day Years Used Date Smoking Tobacco: Some Days Cigarettes 0.5 40.4 Started: 1985 Smokeless Tobacco: Never Comments:pt states tried to quit; smoking 5 cigs/wk [facility] Utilities Answer Date Recorded In the past [...] week 07/24/2024 How often do you attend buddhist or druze serv ices? Never 07/24/2024 Do you belong to any clubs o r organizations such as buddhist groups, unions, fraternal or athletic groups, or [...] place to sleep or slept in a chcf (including now)? No 03/30/2024 Housing Stability Vital [...] were you homeless or living in a chcf (including now)? No 07/24/2024 Personal Safety Answer Date Recorded Have you ever been in or are you currently in a harmful physical or emotional relationship or is someone making you feel afraid or unsafe? 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 documented as of this encounter Care Teams Landscape Designer Relationship Specialty Start Date End Date Kirt Lindsay DO PCP - General Internal Medicine 02/02/21 Josué Del Valle MD PhD Medical Oncologist/Cut Off Saw Operator Metal Medical Oncology 08/26/19 Cal Carranza DO [address] [address] Body Trimmer Upholsterer Internal Medicine 06/12/23 Halie Khan MD [address] [facility] [address] [place] [address] Human Resource Management Instructor Critical Care Med 06/12/23 Wilfred Kinsey MD [address] [address] Consulting Physician Gastroenterology 03/02/24 documented as of this encounter
--- OUTSIDE RECORDS SUMMARY | 2024-11-22 10:44 | XMS_ITS | Encounter Summary ---
Author Organization [facility] Healthcare Address [address] [place] [address] Care Team Providers Care Advice Clerk Name Role Phone Josué Del Valle MD PhD Unavailable [phone] Kirt Lindsay DO Primary Care Provider [phone] Cal Carranza DO Unavailable [phone] Halie Khan MD Unavailable [phone] Wilfred Kinsey MD Unavailable Encounter Details Date Type Department Care Team (Latest Contact Info) Description 08/18/2024 10:57 AM CDT - 08/18/2024 11:59 PM CDT Hospital Encounter [address] [address] AML s/p Allo SCT in 2009 Discharge Disposition: Discharge to home or self care Social History Tobacco Use Types Packs/Day Years Used Date Smoking Tobacco: Some Days Cigarettes 0.5 40.4 Started: 1985 Smokeless Tobacco: Never Comments:pt states tried to quit; smoking 5 cigs/wk [facility] Utilities Answer Date Recorded In the past 12 months has [employer], gas, oil, or water company threatened to [...] week 07/24/2024 How often do you attend gnosticism or anabaptist serv ices? Never 07/24/2024 Do you belong to any clubs o r organizations such as gnosticism groups, unions, fraternal or athletic groups, or [...] place to sleep or slept in a halfway (including now)? No 03/30/2024 Housing Stability Vital Sign Answer Morro e Recorded In the last 12 months, was t here a time when you were not able to pay the mortgage or rent on time? No 07/24/2024 In the past 12 months, how m any times have you moved where you were living? 0 07/24/2024 At any time in the past 12 m [facility], were you homeless or living in a halfway (including now)? No 07/24/2024 Personal Safety Answer Date Recorded Have you ever been in or are you currently in a harmful physical or emotional relationship or is someone making you feel afraid or unsafe? 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 Gender Identity Not on file Sexual Orientation Not on file documented as of this encounter Medications at Time of Discharge acyclovir (ZOVIRAX) 400 mg tabletIndications:Prophy laxis, Medical Take 1 tablet (400 mg total) by mouth 3 (three) times a day 07/31/20 24 albuterol 2.5 mg /3 mL (0.083 %) nebulizer solution Take 3 mL (2.5 mg total) by nebulization every 6 (six) hours as needed for wheezing or shortness of breath atorvastatin (LIPITOR) 40 mg tabletIndications: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),Type 2 diabetes mellitus with hyperglycemia, with long-term current use of insulin (HCC),Vzlfr-tzvkvs-yncq disease (HCC),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HCC),Pure hypercholesterolemia TAKE ONE TABLET (40MG) BY MOUTH DAILY AT 5 PM LAST REFILL UNTIL SEEN 30 tablet 11 08/07/20 24 cholecalciferol (VITAMIN D-3) 25 mcg (1,000 unit) tablet Take 2 tablets (2,000 Units total) by mouth every morning 11/13/20 21 clopidogreL (PLAVIX) 75 mg tablet Take 1 tablet (75 mg total) by mouth daily 30 tablet 08/02/20 24 cyanocobalamin (Vitamin B-12) 1,000 mcg tablet Take 1 tablet (1,000 mcg total) by mouth every morning 01/31/20 24 empagliflozin (JARDIANCE) 10 mg tabletIndications:heart failure associated with type 2 diabetes mellitus Take 1 tablet (10 mg total) by mouth daily 30 tablet 07/31/20 24 flash glucose scanning reader (FreeStyle Evaristo 2 [place]) [facility] Use to test blood glucose continuously 1 each 1 03/17/20 23 flash glucose sensor (FreeStyle Evaristo 2 Sensor) kitIndications:Type 2 diabetes mellitus with hyperosmolarity 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, with long-term current use of insulin ([facility]) Change sensor every 14 days 2 kit 02/10/20 24 guaiFENesin ER (MUCINEX) 600 mg 12 hr tablet Take 1 tablet (600 mg total) by mouth 2 (two) times a day metoprolol XL (TOPROL-XL) 25 mg extended release tablet Take 0.5 tablets (12.5 mg total) by mouth daily 15 tablet 07/31/20 24 mycophenolate mofetil (CELLCEPT) 500 mg tabletIndications: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, unspecified (HCC),Acute myeloblastic leukemia, in remission (HCC) TAKE TWO TABLETS BY MOUTH TWICE DAILY 180 tablet 11 08/17/20 24 omega-3 fatty acids (LOVAZA) 1 gram capsule Take 1 capsule (1 g total) by mouth daily 02/10/20 21 oxygen Administer 2 L/min into each nostril nightly Nightly and PRN tacrolimus 0.5 mg immediate-release capsuleIndications:Acute myeloblastic leukemia, in remission (HCC) TAKE ONE CAPSULE BY MOUTH EVERY OTHER DAY 15 capsule 11 07/03/20 24 Xarelto 20 mg tabletIndications:Acute myeloblastic leukemia, in remission (HCC) TAKE ONE TABLET BY MOUTH DAILY AT 9 AM 30 tablet 11 06/09/20 24 azithromycin (ZITHROMAX) 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 Take 1 tablet (500 mg total) by mouth daily for 30 doses 30 tablet 08/02/20 24 024 ethambutoL (MYAMBUTOL) 400 mg tabletIndications:Mycoba cteriosis Take 3 tablets (1,200 mg total) by mouth daily 90 tablet 08/02/20 24 024 isavuconazonium (CRESEMBA) 186 mg capsuleIndications:Proph ylaxis, Medical Take 2 capsules (372 mg total) by mouth daily 60 capsule 08/02/20 24 024 sodium chloride 3 % nebulizer solutionIndications:airw ay clearanc Take 4 mL by nebulization 2 (two) times a day Use albuterol in nebulizer first, then saline, then Aerobika 240 mL 3 07/07/20 24 024 amikacin IV syringe 25 mg/mLIndications:Upper Respiratory/HEENT Infection Infuse 28 mL (700 mg total) into a venous catheter 3 (three) times a week 07/31/20 24 024 nnqwnnnzhmn-ghbdasrpb-tv lanter (Trelegy Ellipta) 200-62.5-25 mcg inhaler Inhale 1 puff daily 024 gabapentin (NEURONTIN) 300 mg capsuleIndications:Acute myeloblastic leukemia, in remission (HCC) TAKE ONE CAPSULE BY MOUTH FOUR TIMES DAILY @ [id number]-9PM 120 capsule 11 05/13/20 24 025 heparin 10 unit/mL syringeIndications:Maint ain Patency of Indwelling Vascular Catheter Administer 5 mL (50 Units total) into catheter daily For each lumen 200 mL 08/02/20 24 024 montelukast (SINGULAIR) 10 mg tablet Take 1 tablet (10 mg total) by mouth nightly 024 nicotine (NICODERM CQ) [address] 1 patch on the skin daily 30 patch 1 03/02/20 24 025 ondansetron ODT (ZOFRAN-ODT) 4 mg disintegrating tablet Take 1 tablet (4 mg total) by mouth every 8 (eight) hours as needed for nausea or vomiting 20 tablet 07/17/[address] (PROTONIX) 40 mg EC tablet TAKE 1 TABLET(40 MG) BY MOUTH TWICE DAILY 180 tablet 07/17/20 24 025 sodium chloride 0.9% injection Administer 5-10 mL into catheter daily For each lumen 200 mL 08/02/20 24 024 documented as of this encounter Discharge Disposition Disposition Code Departure Means Destination Discharge to home or self care documented in this encounter Plan of Treatment Not on file documented as of this encounter Procedures Procedure Name Priority Date/Time Associated Diagnosis Comments GLUCOSE, RANDOM (OUTREACH) Routine 08/18/2024 9:46 AM CDT EGFR Routine 08/18/2024 9:46 AM CDT COMPREHENSIVE METABOLIC PANEL WITHOUT GLUCOSE (OUTREACH) Routine 08/18/2024 9:46 AM CDT documented in this encounter Results * eGFR (08/18/2024 9:46 AM CDT) eGFR >90 >=60 mL/min/1. 73 m2 Comment: [...] interpretive data was last reviewed 2021. Blood 08/18/2024 9:46 AM CDT 08/18/2024 12:41 PM CDT Josué Del Valle MD PhD LAB BLOOD ORDERABLES Fin al Result Performing Organization Address [facility] Co de Phone Number [facility] [place] [address] * Glucose, random (Outreach) (08/18/2024 9:46 AM CDT) Glucose 137 70 - 199 mg/dL Comment: Interpretive Data Fasting glucose >/= 126 [...] Current interpretive data was last revised 2022. Blood 08/18/2024 9:46 AM CDT 08/18/2024 12:29 PM CDT Josué Del Valle MD PhD LAB BLOOD ORDERABLES Fin al Result Performing Organization Address [facility] de Phone Number [facility] [place] [address] * (ABNORMAL) Comprehensive metabolic panel, without glucose (Outreach) (08/18/2024 9:46 AM CDT) Sodium 140 135 - 145 mmol/L Potassium, pl 4.4 3.3 - 4.9 mmol/L [facility] Chloride 103 97 - 110 mmol/L [facility] CO2 26 22 - 32 mmol/L [facility] Anion gap 11 2 - 15 mmol/L [facility] BUN 11 6 - 25 mg/dL [facility] Creatinine 0.78(L) 0.80 - 1.30 mg/dL [facility] Calcium 9.2 8.5 - 10.3 mg/dL [facility] Protein, pl 7.0 6.5 - 8.5 g/dL [facility] Albumin 3.1(L) 3.5 - 5.0 g/dL [facility] Bilirubin, total 0.2 0.1 - 1.2 mg/dL [facility] Alk phos 192(H) 40 - 130 Units/L [facility] AST 32 10 - 50 Units/L [facility] ALT 24 7 - 55 Units/L [facility] Blood 08/18/2024 9:46 AM CDT 08/18/2024 12:29 PM CDT Josué Del Valle MD PhD LAB BLOOD ORDERABLES Fin al Result [facility] [place] [address] documented in this encounter Visit Diagnoses Diagnosis AML s/p Allo SCT in 2008 documented in this encounter Additional Health Concerns Infection Onset Date 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 documented as of this encounter Care Teams Advice Clerk Relationship Specialty Start Date End Date Kirt Lindsay DO PCP - General Internal Medicine 02/02/21 Josué Del Valle MD PhD Medical Oncologist/Event Promoter Medical Oncology 08/26/19 Cal Carranza DO [address] [place] [address] Consultant In Ergonomics And Safety Internal Medicine 06/12/23 Halie Khan MD [address] [place] [address] Technical Stenographer Critical Care Med 06/12/23 Wilfred Kinsey MD [address] [facility] [address] [place] [id number] Consulting Physician Gastroenterology 03/02/24 documented as of this encounter
--- OUTSIDE RECORDS SUMMARY | 2024-11-22 10:44 | XMS_ITS | Encounter Summary ---
Author Organization [facility] Address [address] [facility] [address] [place] [address] Phone Care Team Providers Care Chemical Worker Name Role Phone Josué Del Valle MD PhD Unavailable [phone] Kirt Lindsay DO Primary Care Provider [phone] Cal Carranza DO Unavailable [phone] Halie Khan MD Unavailable [phone] Wilfred Kinsey MD Unavailable Encounter Details Date Type Department Care Team (Late st Contact Info) Description 08/26/2024 Documentation [facility] Infectious Diseases [address] [place] [id number] Page Marsh Social History Tobacco Use Types Packs/Day Years Used Date Smoking Tobacco: Some Days Cigarettes 0.5 40.4 Started: 1985 Smokeless Tobacco: Never Comments:pt states tried to quit; smoking 5 cigs/wk [facility] Utilities Answer Date Recorded In the past 12 months has [employer], gas, oil, or water company threatened [...] week 07/24/2024 How often do you attend baptism or mandaeism serv ices? Never 07/24/2024 Do you belong to any clubs o r organizations such as baptism groups, unions, fraternal or athletic groups, or [...] place to sleep or slept in a custodial (including now)? No 03/30/2024 Housing Stability Vital Sign Answer [place] e Recorded In the last 12 months, was t here a time when you were not able to pay the mortgage or rent on time? No 07/24/2024 In the past 12 months, how m any times have you moved where you were living? 0 07/24/2024 At any time in the past 12 m [facility], were you homeless or living in a custodial (including now)? No 07/24/2024 Personal Safety Answer Date Recorded Have you ever been in or are you currently in a harmful physical or emotional relationship or is someone making you feel afraid or unsafe? 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 Gender Identity Not on file Sexual Orientation Not on file documented as of this encounter Progress Notes * Page Marsh - 08/26/2024 9:59 AM CDT ID OPAT Progress/Monitoring Note Antimicrobials Care Coordination Monitoring/Events Adverse Events Antibiotic adverse event requiring action: High aminoglycoside peak/trough Action: contacted Comments OPAT Comments Comments: Amikacin PK 35.2 Time Spent Time Spent Time Spent: 20 Time Spent Role : RN documented in this encounter Miscellaneous Notes * Summary of Treatment Recommendations Non-Billable - Page Marsh - 08/26/2024 9:59 AM CDT ID OPAT Progress/Monitoring Note Monitoring/Events Adverse Events Antibiotic adverse event requiring action: High aminoglycoside peak/trough Action: contacted Comments OPAT Comments Comments: Amikacin PK 35.2 Time Spent Time Spent Time Spent: 20 Time Spent Role : RN 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 documented as of this encounter Care Teams Chemical Worker Relationship Specialty Start Date End Date Kirt Lindsay DO PCP - General Internal Medicine 02/02/21 Josué Del Valle MD PhD Medical Oncologist/Camp Boss Medical Oncology 08/26/19 Cal Carranza DO [address] [place] [address] Watch Train Assembler Internal Medicine 06/12/23 Halie Khan MD [address] [place], [place] [id number] Aircrewman Critical Care Med 06/12/23 Wilfred Kinsey MD [address] [facility] [place] [address] Consulting Physician Gastroenterology 03/02/24 documented as of this encounter
--- OUTSIDE RECORDS SUMMARY | 2024-11-22 10:44 | XMS_ITS | Encounter Summary ---
Author Organization [facility] Address [address] [facility] [address] [place] [address] Phone Care Team Providers Care Director Of Flight Operations Name Role Phone Josué Del Valle MD PhD Unavailable [phone] Kirt Lindsay DO Primary Care Provider [phone] Cal Carranza DO Unavailable [phone] Halie Khan MD Unavailable [phone] Wilfred Kinsey MD Unavailable Reason for Visit * Reason Onset Date Comments OPAT Sign-Off 08/19/2024 Encounter Details Date Type Department Care Team (Late st Contact Info) Description 08/19/2024 Telephone [facility] Infectious Diseases [address] [place] [address] [address] [place] [address] Kimberly Frazier, ARM[facility] [address] [address] [address] [place] [address] OPAT Sign-Off Social History Tobacco Use Types Packs/Day Years Used Date Smoking Tobacco: Some Days Cigarettes 0.5 40.4 Started: 1985 Smokeless Tobacco: Never Comments:pt states tried to quit; smoking 5 cigs/wk [facility] Utilities Answer Date Recorded In the past [...] week 07/24/2024 How often do you attend evangelical or mormon serv ices? Never 07/24/2024 Do you belong to any clubs o r organizations such as evangelical groups, unions, fraternal or athletic groups, or [...] place to sleep or slept in a longterm (including now)? No 03/30/2024 Housing Stability Vital Sign Answer [place] e Recorded In the last 12 months, was t here a time when you were not able to pay the mortgage or rent on time? No 07/24/2024 In the past 12 months, how m any times have you moved where you were living? 0 07/24/2024 At any time in the past 12 m [facility], were you homeless or living in a longterm (including now)? No 07/24/2024 Personal Safety Answer Date Recorded Have you ever been in or are you currently in a harmful physical or emotional relationship or is someone making you feel afraid or unsafe? 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 Trough before dose PEAK is most important 30 min after infusion completed on Saturday Please see restart order Thanks Ashley * Telephone Encounter - Kimberly Frazier NP - 08/19/2024 8:58 AM CDT Labs from yesterday show creatinine has returned to baseline. 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
--- OUTSIDE RECORDS SUMMARY | 2024-11-22 10:44 | XMS_ITS | Encounter Summary ---
Author Organization [facility] Address [address] [facility] [address] [place] [address] Phone Care Team Providers Care Convention Services Manager Name Role Phone Josué Del Valle MD PhD Unavailable [phone] Kirt Lindsay DO Primary Care Provider [phone] Cal Carranza DO Unavailable [phone] Halie Khan MD Unavailable [phone] Wilfred Kinsey MD Unavailable Reason for Visit * Reason Onset Date Comments opat monitoring note 08/31/2024 Encounter Details Date Type Department Care Team (Late st Contact Info) Description 08/31/2024 Documentation [facility] Infectious Diseases [address] [place] [address] [address] [place] [address] Page Marsh opat monitoring note Social History Tobacco Use Types Packs/Day Years Used Date Smoking Tobacco: Some Days Cigarettes 0.5 40.4 Started: 1985 Smokeless Tobacco: Never Comments:pt states tried to quit; smoking 5 cigs/wk [facility] Utilities Answer Date Recorded In the past 12 months has [employer], gas, oil, or water [employer] threatened to shut off services in your home? No 07/24/2024 Social Connection and Isolation Panel [NHANES] A nswer Date Recorded In a typical week, how many times do you talk on the phone with family, friends, or neighbors? Twice a week 07/24/2024 How often do you get together with friends or re latives? Once a week 07/24/2024 How often do you attend scientology or latter-day serv ices? Never 07/24/2024 Do you belong to any clubs o r organizations such as scientology groups, unions, fraternal or athletic groups, or [...] place to sleep or slept in a jail (including now)? No 03/30/2024 Housing Stability Vital Sign Answer Morro e Recorded In the last 12 months, was t here a time when you were not able to pay the mortgage or rent on time? No 07/24/2024 In the past 12 months, how m any times have you moved where you were living? 0 07/24/2024 At any time in the past 12 m [facility], were you homeless or living in a jail (including now)? No 07/24/2024 Personal Safety Answer Date Recorded Have you ever been in or are you currently in a harmful physical or emotional relationship or is someone making you feel afraid or unsafe? 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 Gender Identity Not on file Sexual Orientation Not on file documented as of this encounter Progress Notes * Page Marsh - 08/31/2024 3:20 PM CDT OPAT Monitoring NOTE Seen 10/ MM/DD/YY : [Y/N] ID appt 12/3 MM/DD/YY: Tx END Inpt [facility] IDENTITY MANAGEMENT CONSULTANT/Attg: AshleyP - Sonia Pina / Bharti Outpt: [place]: [facility] ([phone]) HH: Dx: Mycobacterial disease Abx: Amikacin 700mg MWF Labs: CBC with diff, CMP, and Amik PK/TR Imaging: none Access: PICC FYI: Events: Labs: Date WBC ANC Eos Plt SCr AST/ALT Assessment/Plan: - DATE Time spent: documented in this encounter Miscellaneous Notes * Summary of Treatment Recommendations Non-Billable - Page Marsh - 08/31/2024 3:20 PM CDT Images from the original note were not included. Attempted to reach pt, unable to leave vm, mailbox is full ----- Message from Kimberly Frazier NP sent at 08/31/2024 4:11 PM CDT ----- Regarding: RE: amikacin level Yes hold amikacin, make sure he doesn???t have any hearing changes ----- Message ----- From: Page Marsh Sent: 08/31/2024 3:48 PM CDT To: Martín Pinzon MD; Kimberly Frazier NP; # Subject: FW: amikacin level It looks like this was drawn on time. Dr Pinzon/Kimberly I assume we are holding the Amikacin, any other recs? His Scr 0.79 ----- Message ----- From: Cinthia Garcia Sent: 08/31/2024 3:21 PM CDT To: Page Marsh Subject: FW: amikacin level ----- Message ----- From: Birgit Waldron [facility] Sent: 08/31/2024 3:17 PM CDT To: Joni Coates Id Nurse Pool Subject: amikacin level Fyi, amikacin level from 08/28 was 49.2 Infectious Diseases ID OPAT Progress/Monitoring Note External Labs 08/28 Lab Monitoring WBC: 10 ANC: 3890 Abs Eos: 450 Plt: 422 Potassium: 4.5 CR: 0.79 AST: 35 ALT: 25 Other: Normal (amikacin trough <2.5) Monitoring/Events Adverse Events Antibiotic adverse event requiring action: No adverse event requiring action Action: No action taken (no abnormality) Comments OPAT Comments Time Spent Time Spent Time Spent: 10 Time Spent Role : RN 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 documented as of this encounter Care Teams Convention Services Manager Relationship Specialty Start Date End Date Kirt Lindsay DO PCP - General Internal Medicine 02/02/21 Josué Del Valle MD PhD Medical Oncologist/Blending Supervisor Medical Oncology 08/26/19 Cal Carranza DO [address] [facility] 202 [place], [place] [id number] Seasonal Sales Associate Internal Medicine 06/12/23 Halie Khan MD [address] [facility] [address] [place], [place] [id number] Area Mechanic Critical Care Med 06/12/23 Wilfred Kinsey MD [address] [address] Consulting Physician Gastroenterology 03/02/24 documented as of this encounter
--- OUTSIDE RECORDS SUMMARY | 2024-11-22 10:44 | XMS_ITS | Encounter Summary ---
Author Organization [facility] Address [address] [place] [address] Phone Care Team Providers Care Mine Safety Manager Name Role Phone Josué Del Valle MD PhD Unavailable [phone] Kirt Lindsay DO Primary Care Provider [phone] Cal Carranza DO Unavailable Halie Khan MD Unavailable [phone] Wilfred Kinsey MD Unavailable Reason for Visit * Reason Onset Date Comments Follow-up 10/30/2024 Encounter Details Date Type Department Care Team (Late st Contact Info) Description 10/30/2024 Telephone [facility] Endocrinology Metabolism and Lipid [address] [facility] Medicine 13th [place] [address] [place] [address] Bela Orellana, BECKI Follow-up Social History Tobacco Use Types Packs/Day Years Used Date Smoking Tobacco: Some Days Cigarettes 0.5 40.4 Started: 1985 Smokeless Tobacco: Never Comments:pt states tried to quit; smoking 5 cigs/wk [facility] Utilities Answer Date Recorded In the past 12 months has th e electric, gas, oil, or water [employer] threatened to shut off services in your home? No 07/24/2024 Social Connection and Isolation Panel [NHANES] A nswer Date Recorded In a typical week, how many times do you talk on the phone with family, friends, or neighbors? Twice a week 07/24/2024 How often do you get together with friends or re latives? Once a week 07/24/2024 How often do you attend orthodoxy or baptist serv ices? Never 07/24/2024 Do you belong to any clubs o r organizations such as orthodoxy groups, unions, fraternal or athletic groups, or [...] any time in the past 12 m [facility], were you homeless or living in a halfway (including now)? No 07/24/2024 Personal Safety Answer Date Recorded Have you ever been in or are you currently in a harmful physical or emotional relationship or is someone making you feel afraid or unsafe? 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 Male 10:48 AM HAND GLASS CUTTER Gender Identity Not on file Sexual Orientation Not on file documented as of this encounter Miscellaneous Notes * Telephone Encounter - Bela Orellana RN - 10/30/2024 2:45 PM HAND GLASS CUTTER Patient left voicemail to catch up with Dr. Montejo, recently discharged from hospital and states he has had a lot going on. Attempted to call back, no answer and VM box full. Hands message sent. 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 documented as of this encounter Care Teams Mine Safety Manager Relationship Specialty Start Date End Date Kirt Lindsay DO PCP - General Internal Medicine 3/18/21 Josué Del Valle MD PhD Medical Oncologist/Elementary School Tutor Medical Oncology 08/26/[address] [address] Box Sealing Machine Catcher Internal Medicine 06/12/23 Halie Khan MD [address] [address] Roofing Technician Critical Care Med 06/12/23 Wilfred Kinsey MD [address] [address] Consulting Physician Gastroenterology 03/02/24 documented as of this encounter
--- OUTSIDE RECORDS SUMMARY | 2024-11-22 10:44 | XMS_ITS | Encounter Summary ---
Author Organization [facility] Address [address] [facility] [address] [place] [address] Phone Care Team Providers Care Telemarketing Representative Name Role Phone Josué Del Valle MD PhD Unavailable [phone] Kirt Lindsay DO Primary Care Provider [phone] Cal Carranza DO Unavailable [phone] Halie Khan MD Unavailable [phone] Wilfred Kinsey MD Unavailable Encounter Details Date Type Department Care Team (Late st Contact Info) Description 11/12/2024 Telephone [facility] Infectious Diseases [address] [place] [address] Anjana Waller LCSW Social History Tobacco Use Types Packs/Day Years Used Date Smoking Tobacco: Some Days Cigarettes 0.5 40.4 Started: 1985 Smokeless Tobacco: Never Comments:pt states tried to quit; smoking 5 cigs/wk [facility] Utilities Answer Date Recorded In the past 12 months has [employer] electric, gas, oil, or water company threatened [...] week 07/24/2024 How often do you attend christian or moravian serv ices? Never 07/24/2024 Do you belong to any clubs o r organizations such as christian groups, unions, fraternal or athletic groups, or [...] place to sleep or slept in a intermediate (including now)? No 03/30/2024 Housing Stability Vital [...] time in the past 12 m [facility], were you homeless or living in a intermediate (including now)? No 07/24/2024 Personal Safety Answer Date Recorded Have you ever been in or are you currently in a harmful physical or emotional relationship or is someone making you feel afraid or unsafe? 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 Male 10:48 AM PANEL 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 Gender Identity Not on file Sexual Orientation Not on file documented as of this encounter Miscellaneous Notes * Telephone Encounter - Page Marsh - 11/12/2024 1:36 PM CST Return call, lvm L 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 * Telephone Encounter - Anjana Waller LCSW - 11/12/2024 10:28 AM PANEL 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 Patient is asking about his nebulizer medication(?). 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 documented as of this encounter Care Teams Telemarketing Representative Relationship Specialty Start Date End Date Kirt Lindsay DO PCP - General Internal Medicine 02/02/21 Josué Del Valle MD PhD Medical Oncologist/Processing Spec Medical Oncology 08/26/19 Cal Carranza DO [address] [facility] [address] [place] [address] Die Sinking Machine Operator Internal Medicine 06/12/23 Halie Khan MD [address] [facility] [address] [place] [address] Web Marketing Coordinator Critical Care Med 06/12/23 Wilfred Kinsey MD [address] [address] Consulting Physician Gastroenterology 03/02/24 documented as of this encounter
--- OUTSIDE RECORDS SUMMARY | 2024-11-22 10:44 | XMS_ITS | Encounter Summary ---
Author Organization [facility] Address [address] [facility] [address] [place] [address] Phone Care Team Providers Care Zinc Plate Cutter Name Role Phone Josué Del Valle MD PhD Unavailable [phone] Kirt Lindsay DO Primary Care Provider [phone] Cal Carranza DO Unavailable [phone] Halie Khan MD Unavailable [phone] Wilfred Kinsey MD Unavailable Encounter Details Date Type Department Care Team (Late st Contact Info) Description 09/01/2024 Orders Only [facility] Infectious Diseases [address] [place] [address] Page Marsh Social History Tobacco Use Types Packs/Day Years Used Date Smoking Tobacco: Some Days Cigarettes 0.5 40.4 Started: 1985 Smokeless Tobacco: Never Comments:pt states tried to quit; smoking 5 cigs/wk [facility] Utilities Answer Date Recorded In the past 12 months has [employer] electric, gas, oil, or water company threatened [...] week 07/24/2024 How often do you attend roman catholic or taoism serv ices? Never 07/24/2024 Do you belong to any clubs o r organizations such as roman catholic groups, unions, fraternal or athletic groups, [...] any time in the past 12 m [facility], were you homeless or living in a alf (including now)? No 07/24/2024 Personal Safety Answer Date Recorded Have you ever been in or are you currently in a harmful physical or emotional relationship or is someone making you feel afraid or unsafe? 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 Male 10:48 AM DOCUMENT REVIEWER Gender Identity Not on file Sexual Orientation Not on file documented as of this encounter Plan of Treatment Not on file documented as of this encounter Visit Diagnoses Not on filedocumented in this encounter Discontinued Medications Medication Sig Discontinue Reason Start Date End Da te amikacin IV syringe 25 mg/mLIndications:Upper Respiratory/HEENT Infection Infuse 28 mL (700 mg total) into a venous catheter 3 (three) times a week Therapy completed 07/31/2024 09/01/2024 sodium chloride 0.9% injection Administer 5-10 mL into catheter daily For each lumen Therapy completed 08/02/2024 09/01/2024 heparin 10 unit/mL syringeIndications:Evelin ntain Patency of Indwelling Vascular Catheter Administer 5 mL (50 Units total) into catheter daily For each lumen Therapy completed 08/02/2024 09/01/2024 documented as of this encounter Additional Health Concerns Infection Onset Date 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 documented as of this encounter Care Teams Zinc Plate Cutter Relationship Specialty Start Date End Date Kirt Lindsay DO PCP - General Internal Medicine 02/02/21 Josué Del Valle MD PhD Medical Oncologist/Infantry Officer Medical Oncology 08/26/19 Dillon Calreed Dorado DO [address] [id number] Station Manager Internal Medicine 06/12/23 Halie Khan MD [address] [facility] [address] [place], [place] [id number] Wireless Telegrapher Critical Care Med 06/12/23 Wilfred Kinsey MD [address] [address] Consulting Physician Gastroenterology 03/02/24 documented as of this encounter
--- OUTSIDE RECORDS SUMMARY | 2024-11-22 10:44 | XMS_ITS | Encounter Summary ---
Author Organization [facility] Address [address] [place] [address] Phone Care Team Providers Care Marketing Manager Health Communications Name Role Phone Josué Del Valle MD PhD Unavailable [phone] Kirt Lindsay DO Primary Care Provider [phone] Cal Carranza DO Unavailable Halie Khan MD Unavailable [phone] Wilfred Kinsey MD Unavailable Reason for Referral * Consultation (Routine) - Pending Review Specialty Diagnoses / Procedures Referred By Contac t Referred To Contact Pulmonary Disease / Pulmonology Diagnoses Acute myeloblastic leukemia, in remission (HCC) COPD exacerbation (HCC) Josué Del Valle MD PhD [address] DIV IM BONE MARROW TRANSPLANT, [address] [place] [address] Phone: tel: fax: Michael Garner MD [address] [facility] [place] [address] [place] [address] Phone: tel: fax: Referral ID Status Reason Start Date Expiration Date Visits Requested Visits Authorized [id number] Pending Review Specialty Services Required 12/03/2025 1 1 Question Answer Please select the performing region: [facility] (All Locations) [167] # of visits: 1 Comments [employer] ISH PROFESSOR Encounter Details Date Type Department Care Team (Late st Contact Info) Description 11/03/2024 Telephone [facility] Bone Marrow Transplant [address] [facility] Floor 6 [place] [address] Josué Del Valle MD PhD [address] DIV IM BONE MARROW TRANSPLANT[address] [place] [address] Social History Tobacco Use Types Packs/Day Years Used Date Smoking Tobacco: Some Days Cigarettes 0.5 40.4 Started: 1985 Smokeless Tobacco: Never Comments:pt states tried to quit; smoking 5 cigs/wk [facility] Utilities Answer Date Recorded In the past 12 months has [employer] electric, gas, oil, or water [employer] threatened to shut off services in your [...] How often do you attend bahai or scientology serv ices? Never 07/24/2024 Do you belong [...] place to sleep or slept in a retirement (including now)? No 03/30/2024 Housing Stability Vital Sign Answer Morro e Recorded In the last 12 months, was t here a time when you were not able to pay the mortgage or rent on time? No 07/24/2024 In the past 12 months, how m any times have you moved where you were living? 0 07/24/2024 At any time in the past 12 m [facility], were you homeless or living in a retirement (including now)? No 07/24/2024 Personal Safety Answer Date Recorded Have you ever been in or are you currently in a harmful physical or emotional relationship or is someone making you feel afraid or unsafe? 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 Male 10:48 AM ENGLISH PROFESSOR Gender Identity Not on file Sexual Orientation Not on file documented as of this encounter Miscellaneous Notes * Telephone Encounter - Marisa Mcdermott - 11/03/2024 2:59 PM CST Patient calling for a referral to a assistant office manager at [facility] ISH PROFESSOR documented in this encounter Plan of Treatment Scheduled Referrals Name Type Priority Associated Diagnoses Orde r Schedule Ambulatory referral to Pulmonology Outpatient Referral Routine Acute myeloblastic leukemia, in remission (HCC) COPD exacerbation (HCC) Expected: 11/17/2024 (Approximate), Expires: 11/03/2025 documented as of this encounter Visit Diagnoses Diagnosis Acute myeloblastic leukemia, in remission (HCC)- Primary COPD exacerbation (HCC) Obstructive chronic bronchitis with exacerbation documented in this encounter Additional Health Concerns Infection Onset Date 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 documented as of this encounter Care Teams Marketing Manager Health Communications Relationship Specialty Start Date End Date Kirt Lindsay DO PCP - General Internal Medicine 02/02/21 Josué Del Valle MD PhD Medical Oncologist/Retail Business Manager Medical Oncology 08/26/19 Cal Carranza DO [address] [place] [address] [employer] Internal Medicine 06/12/23 Halie Khan MD [address] [facility] [address] [place] [address] Mine Geologist Critical Care Med 06/12/23 Wilfred Kinsey MD [address] [address] Consulting Physician Gastroenterology 03/02/24 documented as of this encounter
--- OUTSIDE RECORDS SUMMARY | 2024-11-22 10:44 | XMS_ITS | Encounter Summary ---
Author Organization [facility] Address [address] [facility] [address] [place] [address] Phone Care Team Providers Care Dry Mill Operator Name Role Phone Josué Del Valle MD PhD Unavailable [phone] Kirt Lindsay DO Primary Care Provider [phone] Cal Carranza DO Unavailable [phone] Halie Khan MD Unavailable [phone] Wilfred Kinsey MD Unavailable Reason for Visit * Reason Onset Date Comments opat monitoring note 09/01/2024 Encounter Details Date Type Department Care Team (Late st Contact Info) Description 09/01/2024 Documentation [facility] Infectious Diseases [address] [place] [address] [address] [place] [address] Page Marsh opat monitoring note Social History Tobacco Use Types Packs/Day Years Used Date Smoking Tobacco: Some Days Cigarettes 0.5 40.4 Started: 1985 Smokeless Tobacco: Never Comments:pt states tried to quit; smoking 5 cigs/wk [facility] Utilities Answer Date Recorded In the past 12 months has [employer], gas, oil, or water [employer] threatened to shut off services in your home? No 07/24/2024 Social Connection and Isolation Panel [NHANES] A nswer Date Recorded In a typical week, how many times do you talk on the phone with family, friends, or neighbors? Twice a week 07/24/2024 How often do you get together with friends or re latives? Once a week 07/24/2024 How often do you attend hindu or voodoo serv ices? Never 07/24/2024 Do you belong to any clubs o r organizations such as hindu groups, unions, fraternal or athletic groups, or [...] any time in the past 12 m [facility], were you homeless or living in [...] on file Legal Sex Male 10:48 AM TRAINING CONSULTANT Gender Identity Not on file Sexual Orientation Not on file documented as of this encounter Progress Notes * Page Marsh - 09/01/2024 10:49 AM CDT OPAT Monitor note Stopped IV Amikacin, will dc PICC pt will continue on oral medications 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 documented as of this encounter Care Teams Dry Mill Operator Relationship Specialty Start Date End Date Kirt Lindsay DO PCP - General Internal Medicine 02/02/21 Josué Del Valle MD PhD Medical Oncologist/Db2 Developer Medical Oncology 08/26/19 Cal Carranza DO [address] [facility] [address] [place] [address] Variety Performer Internal Medicine 06/12/23 Halie Khan MD [address] [facility] [address] [place] [address] Sweatband Maker Critical Care Med 06/12/23 Wilfred Kinsey MD [address] [address] Consulting Physician Gastroenterology 03/02/24 documented as of this encounter
--- OUTSIDE RECORDS SUMMARY | 2024-11-22 10:44 | XMS_ITS | Encounter Summary ---
Author Organization [facility] Address [address] [facility] [address] [place] [address] Phone Care Team Providers Care Apprentice Photographer Name Role Phone Josué Del Valle MD PhD Unavailable Kirt Lindsay DO Primary Care Provider [phone] Cal Carranza DO Unavailable [phone] Halie Khan MD Unavailable [phone] Wilfred Kinsey MD Unavailable Encounter Details Date Type Department Care Team (Late st Contact Info) Description 08/24/2024 Telephone [facility] Infectious Diseases [address] [place] [phone] Page Marsh Social History Tobacco Use Types Packs/Day Years Used Date Smoking Tobacco: Some Days Cigarettes 0.5 40.4 Started: 1985 Smokeless Tobacco: Never Comments:pt states tried to quit; smoking 5 cigs/wk [facility] Utilities Answer Date Recorded In the past 12 months has [employer] electric, gas, oil, or water company threatened [...] week 07/24/2024 How often do you attend taoism or mormonism serv ices? Never 07/24/2024 Do you belong to any clubs o r organizations such as taoism groups, unions, fraternal or athletic groups, or [...] place to sleep or slept in a senior care (including now)? No 03/30/2024 Housing Stability Vital [...] were you homeless or living in a senior care (including now)? No 07/24/2024 Personal Safety Answer Date Recorded Have you ever been in or are you currently in a harmful physical or emotional relationship or is someone making you feel afraid or unsafe? 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 Male 10:48 AM IN STORE DEMONSTRATOR Gender Identity Not on file Sexual Orientation Not on file documented as of this encounter Miscellaneous Notes * Telephone Encounter - Page Marsh - 08/24/2024 8:28 AM CDT Mailed clofazimine to pt with instructions. 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 documented as of this encounter Care Teams Apprentice Photographer Relationship Specialty Start Date End Date Kirt Lindsay DO PCP - General Internal Medicine 02/02/21 Josué Del Valle MD PhD Medical Oncologist/Integrated Circuit Design Engineer Medical Oncology 08/26/19 Cal Carranza DO [address] [address] Rn Building Internal Medicine 06/12/23 Halie Khan MD [address] [address] Steward/Stewardess Lounge Critical Care Med 06/12/23 Wilfred Kinsey MD [address] [address] Consulting Physician Gastroenterology 03/02/24 documented as of this encounter
--- OUTSIDE RECORDS SUMMARY | 2024-11-22 10:44 | XMS_ITS | Encounter Summary ---
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) Procedures ECG 12 lead Kimberly Frazier NP [address] [place] [address] Phone: tel: fax: [facility] (All Locations) Referral ID Status Reason Start Date Expiration Date V isits Requested Visits Authorized [id number] Authorized 08/18/2024 09/17/2025 1 1 Reason for Visit * Reason Comments Follow-up * Consultation (Routine) - Authorized Specialty Diagnoses / Procedures Referred By Ana M anderson Referred To Contact Infectious Diseases Diagnoses 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[facility]) Krista Hay DO [address] [facility] [address] [place] [address] Phone: tel: fax: [facility] (All Locations) Referral ID Status Reason Start Date Expiration Date Visits Requested Visits Authorized [id number] Authorized Specialty Services Required 07/28/2024 08/27/2025 3 3 Encounter Details Date Type Department Care Team (Latest Contact Info) Description 08/18/2024 9:00 AM CDT Office Visit [facility] Infectious Diseases [address] [place] [phone] Kimberly Frazier NP [address] [address] 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[facility]) Social History Tobacco Use Types Packs/Day Years Used Date Smoking Tobacco: Some Days Cigarettes 0.5 40.4 Started: 1985 Smokeless Tobacco: Never Comments:pt states tried to quit; smoking 5 cigs/wk [facility] Utilities Answer Date Recorded In the past 12 months has [employer], gas, oil, or water [employer] threatened to shut off services in your home? No 07/24/2024 Social Connection and Isolation Panel [NHANES] A nswer Date Recorded In a typical week, how many times do you talk on the phone with family, friends, or neighbors? Twice a week 07/24/2024 How often do you get together with friends or re latives? Once a week 07/24/2024 How often do you attend uatsdin or jainism serv ices? Never 07/24/2024 Do you belong to any clubs o r organizations such as uatsdin groups, unions, fraternal or athletic groups, or [...] any time in the past 12 m [facility], were you homeless or living in a custodial (including now)? No 07/24/2024 Personal Safety Answer Date Recorded Have you ever been in or are you currently in a harmful physical or emotional relationship or is someone making you feel afraid or unsafe? 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 Gender Identity Not on file Sexual Orientation Not on file documented as of this encounter Last Filed Vital Signs Vital Sign Reading Time Taken Comments Blood Pressure 93/70 08/18/2024 9:31 AM CDT Pulse 99 08/18/2024 9:01 AM CDT Temperature 36.4 ??C (97.5 ??F) 08/18/2024 9:01 AM CD T Respiratory Rate - - Oxygen Saturation 99% 08/18/2024 9:01 AM CDT Inhaled Oxygen Concentration - - Weight - - Height 180.3 cm (5' 10.98 ) 08/18/2024 9:01 AM C DT Body Mass Index - - documented in this encounter Progress Notes * Kimberly Frazier, ARMEN - 08/18/2024 9:00 AM CDT Images from the original note were not included. General Infectious Diseases Post Hospital Visit Patient Name: Brady Jones [facility] INFECTIOUS DISEASES [address] [place] [phone] Subjective Chief complaint of pulmonary mycobacterial infection HPI: Brady Jones is a 58 y.o. 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 He also has a hx of MSSA bacteremia 02/2024, felt to be either from pulmonary or intravascular source s/p 6 weeks of IV cefazolin. He has had tree-in-bud changes on chest imaging since 11/2019. CT chest 05/2024 noted worsening cavitary changes to R lung therefore he underwent BAL 06/16/24 which showed +MAC. Fungal serologies and fungal cultures negative. BAL culture also grew Stenotrophomonas for which he received a course of minocycline. He followed up in ID clinic on 07/07/24 and was started on azithromycin 500 mg daily and ethambutol 1200 mg daily. He was also consented for clofazimine. IV amikacin also recommended due to cavitary disease which was started during admission 07/24/24 with plans for 4-6 week course. He was noted to have prolonged QTc therefore voriconazole prophylaxis was switched to isavuconazole. Baseline a udiology exam showed mild to moderate hearing loss in R ear, mild to severe loss in L ear. Interval History: Patent presents to ID clinic today for post hospital follow up. His amikacin has been on hold (lastdose on Saturday) due to increase in his creatinine. Home health has not drawn amikacin peaks or troughs since discharge home. He reports no hearing changes. He remains on azithromycin and ethambutol. Denies any vision changes. He reports no fevers, chills, or night sweats. Has chronics shortness of breath that is at his baseline. He has a good appetite and is eating well. Review of systems: Review of Systems Constitutional: Negative for chills, fatigue and fever. Eyes: Negative for visual disturbance. Respiratory: Positive for cough (chronic) and shortness of breath (at baseline). Gastrointestinal: Negative for abdominal pain, diarrhea, nausea and vomiting. Skin: Negative for rash and wound. Psychiatric/Behavioral: Negative for confusion. Objective Medical Conditions Diagnosis Osteopenia Ybdfo-bnteqx-oqxp disease (HCC) 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HCC) AML s/p Allo SCT in 2008 Type 2 diabetes mellitus ([facility]) Pure hypercholesterolemia Vitamin D deficiency Cough Sinusitis COPD with exacerbation ([facility]/HCC) ([facility]) DVT (deep venous thrombosis) ([facility]/HCC) ([facility]) Depressed mood Shortness of breath CHF (congestive heart failure) ([facility]) ([facility]) Peripheral neuropathy Tobacco abuse Pneumonia due to stenotrophomonas Combined form of senile cataract of both eyes s/p CE/PCIOL OD 05/12/21 s/p CE/IOL OS 08/01/21 Abdominal pain Upper GI bleed Elevated LFTs History of DVT (deep vein thrombosis) History of pulmonary embolism Encounter for removal of biliary stent Other osteoporosis without current pathological fracture Biliary sludge COPD exacerbation (HCC) CAP (community acquired pneumonia) Dysphagia Food impaction of esophagus Multifocal pneumonia MSSA bacteremia Pericardial effusion Hyponatremia History of leukemia Hypotension Right sided lung infiltrate COPD with Pulmonary emphysema (HCC) Acute on chronic hypoxic respiratory failure (HCC) Severe protein-calorie malnutrition (CMS/HCC) (HCC) 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) Acute pancreatitis without infection or necrosis, unspecified pancreatitis type Pulmonary nodules Gastroduodenitis Troponin level elevated Acute on chronic respiratory failure (CMS/HCC) (HCC) History of esophagitis Hypocalcemia Allergies: Adhesive HOME MEDICATIONS : acyclovir (ZOVIRAX) 400 mg tablet albuterol 2.5 mg /3 mL (0.083 %) nebulizer solution amikacin IV syringe 25 mg/mL atorvastatin (LIPITOR) 40 mg tablet azithromycin (ZITHROMAX) 500 mg tablet cholecalciferol (VITAMIN D-3) 25 mcg (1,000 unit) tablet clopidogreL (PLAVIX) 75 mg tablet cyanocobalamin (Vitamin B-12) 1,000 mcg tablet empagliflozin (JARDIANCE) 10 mg tablet ethambutoL (MYAMBUTOL) 400 mg tablet flash glucose scanning reader ([employer] Evaristo 2 Alexander) [facility] flash glucose sensor ([employer] Evaristo 2 Sensor) kit xmtersefxiz-odwvwlltw-xnynbuxt (Trelegy Ellipta) 200-62.5-25 mcg inhaler gabapentin (NEURONTIN) 300 mg capsule guaiFENesin ER (MUCINEX) 600 mg 12 hr tablet heparin 10 unit/mL syringe isavuconazonium (CRESEMBA) 186 mg capsule metoprolol XL (TOPROL-XL) 25 mg extended release tablet montelukast (SINGULAIR) 10 mg tablet mycophenolate mofetil (CELLCEPT) 500 mg tablet nicotine (NICODERM CQ) 21 mg omega-3 fatty acids (LOVAZA) 1 gram capsule ondansetron ODT (ZOFRAN-ODT) 4 mg disintegrating tablet oxygen pantoprazole DR (PROTONIX) 40 mg EC tablet sodium chloride 0.9% injection sodium chloride 3 % nebulizer solution tacrolimus 0.5 mg immediate-release capsule Xarelto 20 mg tablet Vitals: Most Recent : Vitals BP 93/70 (BP Location: Left arm) Pulse 99 Temp 36.4 ??C (97.5 ??F) (Oral) Ht 180.3 cm (5' 10.98 ) SpO2 99% BMI 17.57 kg/m?? Physical Exam Constitutional: General: He is not in acute distress. Appearance: He is underweight. He is ill-appearing (chronic). HENT: Head: Normocephalic and atraumatic. Eyes: Extraocular Movements: Extraocular movements intact. Cardiovascular: Rate and Rhythm: Normal rate and regular rhythm. Heart sounds: Normal heart sounds. No murmur heard. Pulmonary: Effort: Pulmonary effort is normal. No respiratory distress. Breath sounds: Decreased breath sounds present. Skin: General: Skin is warm and dry. Findings: No rash. Comments: PICC to RUE without abnormality at insertion site Neurological: General: No focal deficit present. Mental Status: He is alert and oriented to person, place, and time. Mental status is at baseline. Psychiatric: Mood and Affect: Mood normal. Behavior: Behavior normal. Thought Content: Thought content normal. Judgment: Judgment normal. Lab/Microbiology/Radiology/Diagnostic Review Lab Results Component Value Date WBC 11.0 (H) 08/02/2024 HGB 9.3 (L) 08/02/2024 HCT 28.3 (L) 08/02/2024 MCV 102.5 (H) 08/02/2024 LABPLAT 308 08/02/2024 Lab Results Component Value Date GLUCOSE 137 08/18/2024 CALCIUM 9.2 08/18/2024 SODIUM 140 08/18/2024 POTASSIUM 4.4 08/18/2024 CO2 26 08/18/2024 CHLORIDE 103 08/18/2024 BUNSER 11 08/18/2024 CREATININE 0.78 (L) 08/18/2024 Lab Results Component Value Date ALT 24 08/18/2024 AST 32 08/18/2024 ALKPHOS 192 (H) 08/18/2024 BILITOT 0.2 08/18/2024 Lab Results Component Value Date CRP 82.8 (H) 07/15/2024 Lab Results Component Value Date SEDRATE 115 (H) 07/17/2024 Routine ID screening: Lab Results Component Value Date [id number] Nonreactive 03/04/2024 HEPCAB Nonreactive 09/07/2021 Micro: 06/16/24 BAL culture: Assessment/Plan Summary: 58 y.o. male with a hx of AML s/p sib-allo SCT 2008 c/b GVHD and severe COPD along with cavitary pulmonary MAC. Chest CT: 05/28/24- cavitary RUL 07/14/24- large R apex cavity, scatted coarse nodular opacities throughout First/last positive AFB culture: 06/16/24---> First negative AFB culture: n/a AFB-susceptibility: 06/16/24- susceptible to clarithromycin and amikacin (IV and inhaled) PFTs: no recent study On NTM therapy since 07/07/24 Current NTMLD regimen: ---Azithromycin 500 mg PO daily [07/07/24- ---Ethambutol 1200 mg PO daily [07/07/24- ---Amikacin 700 mg IV on MWF [07/22/24- (currently on hold) Recommendations: - Clinically doing well on exam today. His amikacin is currently on hold due to elevated creatinine. His respiratory symptoms are currently at his baseline. He is still smoking but states only a fewpuffs a day . - Will recheck labs today (CBC and CMP). If creatinine has returned to baseline will restart IV amikacin. Home health notified that we will need peak levels drawn 30 minutes after completing amikacininfusion with target peak of 30-35. Also recommend troughs be drawn just prior to infusion with goal of <1. Plan for at least 2-3 more weeks of IV amikacin - Continue ethambutol and azithromycin - EKG today with significant improvement in QTc, now at 373. Prolonged QTc likely due to voriconazole since improvement after switching to isavuconazole - Plan to start clofazimine given normal QTc. Clofazimine has been ordered but has not yet arrived.He was previously consented by Dr. Pinzon at visit in June. Will plan to repeat EKG after starting clofazimine - Follow up with audiology regularly while on IV amikacin given potential for ototoxicity. Call with any hearing changes. - Ishihara test normal today. Call with vision changes - Continue airway clearance at least once daily. He is using Aerobika but not hypertonic saline. I asked him to use hypertonic saline prior to Aerobika to assist with airway clearance - F/u with pulmonology on 08/24 as scheduled Follow up: - Return in about 8 weeks (around 10/13/2024). Visit Diagnosis: 1. 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 Pinzon. 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 documented as of this encounter Care Teams Airline Dispatcher Relationship Specialty Start Date End Date Kirt Lindsay DO PCP - General Internal Medicine 02/02/21 Josué Del Valle MD PhD Medical Oncologist/Therapist Physical Medical Oncology 08/26/19 Cal Carranza DO [address] [place] [address] Speech Language Pathologist Travel Internal Medicine 06/12/23 Halie Khan MD [address] [place] [address] Timber Hand Critical Care Med 06/12/23 Wilfred Kinsey MD [address] [facility] [address] [place] [phone] Consulting Physician Gastroenterology 03/02/24 documented as of this encounter
--- OUTSIDE RECORDS SUMMARY | 2024-11-22 10:44 | XMS_ITS | Encounter Summary ---
Author Organization [facility] Address [address] [place] [address] Phone Care Team Providers Care Operational Risk Analyst Name Role Phone Josué Del Valle MD PhD Unavailable [phone] Kirt Lindsay DO Primary Care Provider [phone] Cal Carranza DO Unavailable [phone] Halie Khan MD Unavailable [phone] Wilfred Kinsey MD Unavailable Reason for Visit * Reason Onset Date Comments OPAT Sign-Off 08/27/2024 Encounter Details Date Type Department Care Team (Late st Contact Info) Description 08/27/2024 Documentation [facility] Infectious Diseases [address] [place] [phone] Page Marsh OPAT Sign-Off Social History Tobacco Use Types Packs/Day Years Used Date Smoking Tobacco: Some Days Cigarettes 0.5 40.4 Started: 1985 Smokeless Tobacco: Never Comments:pt states tried to quit; smoking 5 cigs/wk [facility] Utilities Answer Date Recorded In the past 12 months has [employer], gas, oil, or water company threatened to [...] week 07/24/2024 How often do you attend yazdanism or scientology serv ices? Never 07/24/2024 Do you belong to any clubs o r organizations such as yazdanism groups, unions, fraternal or athletic groups, or [...] to sleep or slept in a senior living (including now)? No 03/30/2024 Housing Stability Vital Sign Answer [place] Recorded In the last 12 months, was t here a time when you were not able to pay the mortgage or rent on time? No 07/24/2024 In the past 12 months, how m any times have you moved where you were living? 0 07/24/2024 At any time in the past 12 m [facility], were you homeless or living in a senior living (including now)? No 07/24/2024 Personal Safety Answer Date Recorded Have you ever been in or are you currently in a harmful physical or emotional relationship or is someone making you feel afraid or unsafe? 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 Infectious Diseases ID OPAT Progress/Monitoring Note Monitoring/Events Comments OPAT Comments Comments: Will continue amikacin at current dose. Will repeat levels with next lab draw. 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 documented as of this encounter Care Teams Operational Risk Analyst Relationship Specialty Start Date End Date Kirt Lindsay DO PCP - General Internal Medicine 02/02/21 Josué Del Valle MD PhD Medical Oncologist/Pinsetter Mechanic Helper Medical Oncology 08/26/19 Cal Carranza DO [address] [facility] [address] [place] [address] Foot Doctor Internal Medicine 06/12/23 Halie Khan MD [address] [address] Cripple Cutter Critical Care Med 06/12/23 Wilfred Kinsey MD [address] [address] Consulting Physician Gastroenterology 03/02/24 documented as of this encounter
--- OUTSIDE RECORDS SUMMARY | 2024-11-22 10:44 | XMS_ITS | Encounter Summary ---
Author Organization [facility] [place] Address [address] [facility] [address] [place] [address] Phone Care Team Providers Care Air Grinder Name Role Phone Josué Del Valle MD PhD Unavailable [phone] Kirt Lindsay DO Primary Care Provider [phone] Cal Carranza DO Unavailable Halie Khan MD Unavailable [phone] Wilfred Kinsey MD Unavailable Encounter Details Date Type Department Care Team (Late st Contact Info) Description 08/31/2024 Telephone [facility] Infectious Diseases [address] [place] [address] Page Marsh Social History Tobacco Use Types Packs/Day Years Used Date Smoking Tobacco: Some Days Cigarettes 0.5 40.4 Started: 1985 Smokeless Tobacco: Never Comments:pt states tried to quit; smoking 5 cigs/wk [facility] Utilities Answer Date Recorded In the past 12 months has [employer] electric, gas, oil, or water company threatened [...] week 07/24/2024 How often do you attend restorationism or orthodoxy serv ices? Never 07/24/2024 Do you belong to any clubs o r organizations such as restorationism groups, unions, fraternal or athletic groups, or [...] place to sleep or slept in a usp (including now)? No 03/30/2024 Housing Stability Vital [...] were you homeless or living in a usp (including now)? No 07/24/2024 Personal Safety Answer Date Recorded Have you ever been in or are you currently in a harmful physical or emotional relationship or is someone making you feel afraid or unsafe? 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 Gender Identity Not on file Sexual Orientation Not on file documented as of this encounter Miscellaneous Notes * Telephone Encounter - Page Marsh - 08/31/2024 4:19 PM CDT Attempted to reach pt, unable to leave , mailbox is full ----- Message from Kimberly [...] amikacin level ----- Message ----- From: Birgit Waldron, [facility] Sent: 08/31/2024 3:17 PM CDT To: Joni Dennis Nurse Pool Subject: amikacin level Brian, amikacin level from 08/28 was 49.2 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 documented as of this encounter Care Teams Air Grinder Relationship Specialty Start Date End Date Kirt Lindsay DO PCP - General Internal Medicine 02/02/21 Josué Del Valle MD PhD Medical Oncologist/Automotive Parts Counterperson Medical Oncology 08/26/19 Cal Carranza DO [address] [address] Aircraft Systems Repairer Internal Medicine 06/12/23 Halie Khan MD [address] [facility] [address] [place] [address] Pharmacoepidemiologist Critical Care Med 06/12/23 Wilfred Kinsey MD [address] [address] Consulting Physician Gastroenterology 03/02/24 documented as of this encounter
--- OUTSIDE RECORDS SUMMARY | 2024-11-22 10:44 | XMS_ITS | Encounter Summary ---
Author Organization [facility] Address [address] [facility] [address] [place] [address] Phone Care Team Providers Care Transfusion Aide Name Role Phone Josué Del Valle MD PhD Unavailable [phone] Kirt Lindsay DO Primary Care Provider [phone] Cal Carranza DO Unavailable [phone] Halie Khan MD Unavailable [phone] Wilfred Kinsey MD Unavailable Reason for Visit * Reason Onset Date Comments OPAT Sign-Off 08/17/2024 Encounter Details Date Type Department Care Team (Late st Contact Info) Description 08/17/2024 Telephone [facility] Infectious Diseases [address] [place] [address] [address] [place] [address] Page Marsh OPAT Sign-Off Social History Tobacco Use Types Packs/Day Years Used Date Smoking Tobacco: Some Days Cigarettes 0.5 40.4 Started: 1985 Smokeless Tobacco: Never Comments:pt states tried to quit; smoking 5 cigs/wk [facility] Utilities Answer Date Recorded In the past 12 months has [employer], gas, oil, or water company threatened to [...] week 07/24/2024 How often do you attend taoist or hoahaoism serv ices? Never 07/24/2024 Do you belong to any clubs o r organizations such as taoist groups, unions, fraternal or athletic groups, or [...] in the past 12 m [facility], were you homeless or living in a alf (including now)? No 07/24/2024 Personal Safety Answer Date Recorded Have you ever been in or are you currently in a harmful physical or emotional relationship or is someone making you feel afraid or unsafe? 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0 6.6 0.3 308 0.82 43/28 08/10 9.6 6240 374 405 1.43 69/86 08/13 9.5 4969 656 414 0.93 Assessment/Plan: - 08/07/24 - no change in abx plan -08/13 labs received from [facility] and sent to Dr Pinzon, will hold amikacin. Requested serum lactate level. 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 documented as of this encounter Care Teams Transfusion Aide Relationship Specialty Start Date End Date Kirt Lindsay DO PCP - General Internal Medicine 02/02/21 Josué Del Valle MD PhD Medical Oncologist/Filling Layer Up Medical Oncology 08/26/19 Cal Carranza DO [address] [facility] [address] [place] [address] Assistant Paralegal Internal Medicine 06/12/23 Halie Khan MD [address] [facility] [address] [place], [place] [id number] Window And Door Installer Critical Care Med 06/12/23 Wilfred Kinsey MD [address] [facility] [address] [address] Consulting Physician Gastroenterology 03/02/24 documented as of this encounter
--- OUTSIDE RECORDS SUMMARY | 2024-11-22 10:44 | XMS_ITS | Encounter Summary ---
Author Organization [facility] Address [address] [facility] [address] [place] [address] Phone Care Team Providers Care Pump Machine Operator Name Role Phone Josué Del Valle MD PhD Unavailable [phone] Kirt Lindsay DO Primary Care Provider [phone] Cal Carranza DO Unavailable [phone] Halie Khan MD Unavailable [phone] Wilfred Kinsey MD Unavailable Encounter Details Date Type Department Care Team (Late st Contact Info) Description 08/13/2024 Telephone [facility] Infectious Diseases [address] [place] [address] Page Marsh Social History Tobacco Use Types Packs/Day Years Used Date Smoking Tobacco: Some Days Cigarettes 0.5 40.4 Started: 1985 Smokeless Tobacco: Never Comments:pt states tried to quit; smoking 5 cigs/wk [facility] Utilities Answer Date Recorded In the past 12 months has [employer] electric, gas, oil, or water company threatened [...] week 07/24/2024 How often do you attend yazidi or pentecostal serv ices? Never 07/24/2024 Do you belong to any clubs o r organizations such as yazidi groups, unions, fraternal or athletic groups, or [...] any time in the past 12 m [facility], were you homeless or living in a group home (including now)? No 07/24/2024 Personal Safety Answer Date Recorded Have you ever been in or are you currently in a harmful physical or emotional relationship or is someone making you feel afraid or unsafe? 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 Male 10:48 AM PIN SORTER AND BAGGER Gender Identity Not on file Sexual Orientation Not on file documented as of this encounter Miscellaneous Notes * Telephone Encounter - Page Marsh - 08/13/2024 1:11 PM CDT Attempted to reach pt and caregiver to discuss. Lvm at both numbers ----- Message from Birgit Goodman sent at 08/13/2024 9:44 AM CDT ----- Regarding: RE: Labs I have faxed over the labs we have, see below the labs that were ordered on the referral to home health. No amikacin peak? Added the amikacin peak. Infusion Services: Labs (Infusion) Labs: CMP Labs: CBC with Differential CBC frequency: Once a week (on Mondays) CMP frequency: Once a week (on Mondays) Date to Start Labs: 08/03/2024 ----- Message ----- From: Page Marsh Sent: 08/13/2024 7:53 AM CDT To: Martín Pinzon MD; Page Marsh; # Subject: RE: Labs Shawn Please see below from Dr Pinzon ----- Message ----- From: Martín Pinzon MD Sent: 08/12/2024 10:37 PM CDT To: Page Marsh Subject: RE: Labs Where are these labs? I don't see anything since 08/02. What is the bicarb and albumin? Hold the amikacin. Please check a serum lactate level. How often are we checking labs? Should be atleast twice weekly. ----- Message ----- From: Page Marsh Sent: 08/12/2024 4:13 PM CDT To: Martín Pinzon MD; Page Marsh Subject: FW: Labs Increase in Scr from 08/02 0.82 Increase in liver enzymes too Please advise if any changes, amikacin level not drawn with these labs ----- Message ----- From: Bassem Hernandez Jr., RN Sent: 08/12/2024 4:09 PM CDT To: Page Marsh Subject: FW: Labs ----- Message ----- From: Birgit Waldron RPh Sent: 08/12/2024 4:07 PM CDT To: Joni Id Nurse Pool Subject: Labs Fyi, labs from 08/10/24 Scr 1.43, bun 26, na 132, Cl 96, alk phos 185, ast/alt 69/86, plt 405 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 documented as of this encounter Care Teams Pump Machine Operator Relationship Specialty Start Date End Date Kirt Lindsay DO PCP - General Internal Medicine 02/02/21 Josué Del Valle MD PhD Medical Oncologist/B2B Managed Service Sales Exec Medical Oncology 08/26/19 Cal Carranza DO [address] [facility] [address] [place], [place] [id number] Repairer General Internal Medicine 06/12/23 Halie Khan MD [address] [facility] [address] [place] [address] History Instructor Critical Care Med 06/12/23 Wilfred Kinsey MD [address] [address] Consulting Physician Gastroenterology 03/02/24 documented as of this encounter
--- OUTSIDE RECORDS SUMMARY | 2024-11-22 10:44 | XMS_ITS | Encounter Summary ---
Author Organization [facility] Address [address] [facility] [address] [place] [address] Phone Care Team Providers Care Performance Improvement Analyst Name Role Phone Josué Del Valle MD PhD Unavailable [phone] Kirt Lindsay DO Primary Care Provider [phone] Cal Carranza DO Unavailable [phone] Halie Khan MD Unavailable [phone] Wilfred Kinsey MD Unavailable Encounter Details Date Type Department Care Team (Late st Contact Info) Description 08/24/2024 Documentation [facility] Infectious Diseases [address] [place] [phone] Page Marsh Social History Tobacco Use Types Packs/Day Years Used Date Smoking Tobacco: Some Days Cigarettes 0.5 40.4 Started: 1985 Smokeless Tobacco: Never Comments:pt states tried to quit; smoking 5 cigs/wk [facility] Utilities Answer Date Recorded In the past 12 months has [employer] electric, gas, oil, or water company threatened [...] How often do you attend orthodoxy or advent serv ices? Never 07/24/2024 Do you belong [...] place to sleep or slept in a long term (including now)? No 03/30/2024 Housing Stability Vital [...] were you homeless or living in a long term (including now)? No 07/24/2024 Personal Safety Answer Date Recorded Have you ever been in or are you currently in a harmful physical or emotional relationship or is someone making you feel afraid or unsafe? 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 documented as of this encounter Care Teams Performance Improvement Analyst Relationship Specialty Start Date End Date Kirt Lindsay DO PCP - General Internal Medicine 02/02/21 Josué Del Valle MD PhD Medical Oncologist/Lab Support Technician Medical Oncology 08/26/19 Cal Carranza DO [address] [place] [address] Cooler Service Supervisor Internal Medicine 06/12/23 Halie Khan MD [address] [facility] [address] [place] [address] Dairy Manufacturing Technologist Critical Care Med 06/12/23 Wilfred Kinsey MD [address] [address] Consulting Physician Gastroenterology 03/02/24 documented as of this encounter
--- OUTSIDE RECORDS SUMMARY | 2024-11-22 10:44 | XMS_ITS | Encounter Summary ---
Author Organization [facility] Address [address] [place] [address] Phone Care Team Providers Care Manager Long Term Care Name Role Phone Josué Del Valle MD PhD Unavailable Kirt Lindsay DO Primary Care Provider [phone] Cal Carranza DO Unavailable [phone] Halie Khan MD Unavailable [phone] Wilfred Kinsey MD Unavailable Encounter Details Date Type Department Care Team (Late st Contact Info) Description 11/02/2024 Telephone [facility] Bone Marrow Transplant [address] [facility] [address] [place] [address] Josué Del Valle MD PhD [address] DIV IM BONE MARROW TRANSPLANT, [address] [place] [address] Social History Tobacco Use Types Packs/Day Years Used Date Smoking Tobacco: Some Days Cigarettes 0.5 40.4 Started: 1985 Smokeless Tobacco: Never Comments:pt states tried to quit; smoking 5 cigs/wk [facility] Utilities Answer Date Recorded In the [...] How often do you attend hindu or buddhist serv ices? Never 07/24/2024 Do you belong [...] any time in the past 12 m [facility], were you homeless or living in a usp (including now)? No 07/24/2024 Personal Safety Answer Date Recorded Have you ever been in or are you currently in a harmful physical or emotional relationship or is someone making you feel afraid or unsafe? 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 Male 10:48 AM HOSPITAL RECEPTIONIST Gender Identity Not on file Sexual Orientation Not on file documented as of this encounter Ordered Prescriptions Prescription Sig Dispense Quantity Refills Last Filled Start Date End Date montelukast (SINGULAIR) 10 mg tabletIndications: Acute myeloblastic leukemia, in remission (HCC) Take 1 tablet (10 mg total) by mouth nightly 30 tablet 3 11/02/2024 documented in this encounter Miscellaneous Notes * Telephone Encounter - Josué Rice RN - 11/02/2024 11:40 AM CST Refill sent ITAL RECEPTIONIST * Telephone Encounter - Marisa Mcdermott - 11/02/2024 11:23 AM CST Patient calling for a refill for his [facility] to [facility] ITAL RECEPTIONIST documented in this encounter Plan of Treatment Not on file documented as of this encounter Visit Diagnoses Diagnosis Acute myeloblastic leukemia, in remission (HCC)- Primary documented in this encounter Discontinued Medications Medication Sig Discontinue Reason Start Date End Da te montelukast (SINGULAIR) 10 mg tablet Take 1 tablet (10 mg total) by mouth nightly Reorder 11/02/2024 documented as of this encounter Additional Health Concerns Infection Onset Date 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 documented as of this encounter Care Teams Manager Long Term Care Relationship Specialty Start Date End Date Kirt Lindsay DO PCP - General Internal Medicine 02/02/21 Josué Del Valle MD PhD Medical Oncologist/Waxing Machine Operator Helper Medical Oncology 08/26/19 Cal Carranza DO [address] [place] [address] Coal Digger Internal Medicine 06/12/23 Halie Khan MD [address] [facility] [address] [place] [address] Movement Assembler Critical Care Med 06/12/23 Wilfred Kinsey MD [address] [address] Consulting Physician Gastroenterology 03/02/24 documented as of this encounter
--- OUTSIDE RECORDS SUMMARY | 2024-11-22 10:44 | XMS_ITS | Encounter Summary ---
Author Organization [facility] Address [address] [place] [address] Phone Care Team Providers Care Welding Machine Operator Thermit Name Role Phone Josué Del Valle MD PhD Unavailable [phone] Kirt Lindsay DO Primary Care Provider [phone] Cal Carranza DO Unavailable [phone] Halie Khan MD Unavailable [phone] Wilfred Kinsey MD Unavailable Encounter Details Date Type Department Care Team (Late st Contact Info) Description 08/24/2024 Orders Only [facility] Infectious Diseases [address] [place] [address] [address] [place] [address] Martín Pinzon MD [address] [place] [address] Social History Tobacco Use Types Packs/Day Years Used Date Smoking Tobacco: Some Days Cigarettes 0.5 40.4 Started: 1985 Smokeless Tobacco: Never Comments:pt states tried to quit; smoking 5 cigs/wk [facility] Utilities Answer Date Recorded In the past 12 months has th e electric, gas, oil, or water [employer] threatened to shut off services in your home? No 07/24/2024 Social Connection and Isolation Panel [NHANES] A nswer Date Recorded In a typical week, how many times do you talk on the phone with family, friends, or neighbors? Twice a week 07/24/2024 How often do you get together with friends or re latives? Once a week 07/24/2024 How often do you attend buddhism or alevism serv ices? Never 07/24/2024 Do you belong to any clubs o r organizations such as buddhism groups, unions, fraternal or athletic groups, or [...] place to sleep or slept in a mcfp (including now)? No 03/30/2024 Housing Stability Vital Sign Answer [place] Recorded In the last 12 months, was t here a time when you were not able to pay the mortgage or rent on time? No 07/24/2024 In the past 12 months, how m any times have you moved where you were living? 0 07/24/2024 At any time in the past 12 m [facility], were you homeless or living in a mcfp (including now)? No 07/24/2024 Personal Safety Answer Date Recorded Have you ever been in or are you currently in a harmful physical or emotional relationship or is someone making you feel afraid or unsafe? 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 Male 10:48 AM MUSHROOM PICKER Gender Identity Not on file Sexual Orientation Not on file documented as of this encounter Ordered Prescriptions Prescription Sig Dispense Quantity Refills Last Filled Start Date End Date [facility] clobirdieziVICTORINA barron, (2017-11-147) 50 mg capsule capsule Take 2 capsules (100 mg total) by mouth daily 08/24/2024 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 documented as of this encounter Care Teams Welding Machine Operator Thermit Relationship Specialty Start Date End Date Kirt Lindsay DO PCP - General Internal Medicine 02/02/21 Josué Del Valle MD PhD Medical Oncologist/Advertising Production Manager Medical Oncology 08/26/19 Cal Carranza DO [address] [facility] [address] [place] [address] Bag Adjuster Internal Medicine 06/12/23 Halie Khan MD [address] [facility] [address] [place] [address] Claim Agent Critical Care Med 06/12/23 Wilfred Kinsey MD [address] [address] Consulting Physician Gastroenterology 03/02/24 documented as of this encounter
--- OUTSIDE RECORDS SUMMARY | 2024-11-22 10:45 | XMS_ITS | Encounter Summary ---
Author Organization [facility] Address [address] [facility] [address] [place] [address] Phone Care Team Providers Care Disbursing Officer Name Role Phone Josué Del Valle MD PhD Unavailable [phone] Kirt Lindsay DO Primary Care Provider [phone] Cal Carranza DO Unavailable [phone] Halie Khan MD Unavailable [phone] Wilfred Kinsey MD Unavailable Encounter Details Date Type Department Care Team (Late st Contact Info) Description 08/11/2024 Telephone [facility] Infectious Diseases [address] [place] [address] Page Marsh Social History Tobacco Use Types Packs/Day Years Used Date Smoking Tobacco: Some Days Cigarettes 0.5 40.4 Started: 1985 Smokeless Tobacco: Never Comments:pt states tried to quit; smoking 5 cigs/wk [facility] Utilities Answer Date Recorded In the past 12 months has [employer], gas, oil, or water company threatened [...] week 07/24/2024 How often do you attend amish or roman catholic serv ices? Never 07/24/2024 Do you belong to any clubs o r organizations such as amish groups, unions, fraternal or athletic groups, or [...] place to sleep or slept in a mcc (including now)? No 03/30/2024 Housing Stability Vital [...] were you homeless or living in a mcc (including now)? No 07/24/2024 Personal Safety Answer Date Recorded Have you ever been in or are you currently in a harmful physical or emotional relationship or is someone making you feel afraid or unsafe? 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 Male 10:48 AM CABLE ENGINEER OUTSIDE PLANT Gender Identity Not on file Sexual Orientation Not on file documented as of this encounter Miscellaneous Notes * Telephone Encounter - Page Marsh - 08/11/2024 8:26 AM CDT [facility] Can we please add amikacin pk to his lab orders? 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 documented as of this encounter Care Teams Disbursing Officer Relationship Specialty Start Date End Date Kirt Lindsay DO PCP - General Internal Medicine 02/02/21 Josué Del Valle MD PhD Medical Oncologist/Supplier Engineer Medical Oncology 08/26/19 Cal Carranza DO [address] [facility] [address] [place], [place] [id number] Intraoperative Neuro Tech Internal Medicine 06/12/23 Halie Khan MD [address] [facility] [address] [place], [place] [id number] Refractory Furnace Designer Critical Care Med 06/12/23 Wilfred Kinsey MD [address] [address] Consulting Physician Gastroenterology 03/02/24 documented as of this encounter
--- OUTSIDE RECORDS SUMMARY | 2024-11-22 10:45 | XMS_ITS | Encounter Summary ---
Author Organization [facility] Healthcare Address [address] [place] [address] Care Team Providers Care Machinist General Name Role Phone Josué Del Valle MD PhD Unavailable [phone] Kirt Lindsay DO Primary Care Provider [phone] Cal Carranza DO Unavailable [phone] Halie Khan MD Unavailable [phone] Wilfred Kinsey MD Unavailable Encounter Details Date Type Department Care Team (Late st Contact Info) Description 08/11/2024 Orders Only [facility] Home Care Services [address] [place] [address] Birgit Waldron, [facility] Social History Tobacco Use Types Packs/Day Years Used Date Smoking Tobacco: Some Days Cigarettes 0.5 40.4 Started: 1985 Smokeless Tobacco: Never Comments:pt states tried to quit; smoking 5 cigs/wk [facility] Utilities Answer Date Recorded In the [...] How often do you attend restorationism or jewish serv ices? Never 07/24/2024 Do you belong [...] any time in the past 12 m [facility], were you homeless or living in a chcf (including now)? No 07/24/2024 Personal Safety Answer Date Recorded Have you ever been in or are you currently in a harmful physical or emotional relationship or is someone making you feel afraid or unsafe? 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 Male 10:48 AM LIGHT BULB REPLACER Gender Identity Not on file Sexual Orientation Not on file documented as of this encounter Progress Notes * Birgit Waldron RPh - 08/11/2024 10:02 AM CDT Updated orders. FOC Dr Martín Pinzon/ Sonia Pina, ARMEN/ Alejandro KhalilD Following pharmacist: Shawn Waldron Maintain IV access PICC Line with 10ml normal saline and 5ml heparin 50units/5ml for patency per established protocol. Amikacin 700mg (100mL) IV over 60 minutes three times per week on Saturday, Saturday and by Elastomeric device at 100mL/hr. Labs: CBC with diff, CMP and amikacin peak weekly Please fax labs to ID [phone] and [facility] Homecare [phone] LOT: indef? 1 SNV every week for 7 weeks for patient assessment, teaching, IV catheter care, lab work. 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
--- OUTSIDE RECORDS SUMMARY | 2024-11-22 10:45 | XMS_ITS | Encounter Summary ---
Author Organization [facility] Healthcare Address [address] [place] [address] Care Team Providers Care Makeup Editor Name Role Phone Josué Del Valle MD PhD Unavailable Kirt Lindsay DO Primary Care Provider [phone] Cal Carranza DO Unavailable [phone] Halie Khan MD Unavailable [phone] Wilfred Kinsey MD Unavailable Encounter Details Date Type Department Care Team (Late st Contact Info) Description 08/07/2024 Documentation [facility] Isolation Infection [address] [place] [address] Sonia Pina, DIGITAL INTERN [address] [place] [address] Social History Tobacco Use Types Packs/Day Years Used Date Smoking Tobacco: Some Days Cigarettes 0.5 40.4 Started: 1985 Smokeless Tobacco: Never Comments:pt states tried to quit; smoking 5 cigs/wk [facility] Utilities Answer Date Recorded In the past 12 months has [employer], gas, oil, or water [employer] threatened to shut off services in your home? No 07/24/2024 Social Connection and Isolation Panel [NHANES] A nswer Date Recorded In a typical week, how many times do you talk on the phone with family, friends, or neighbors? Twice a week 07/24/2024 How often do you get together with friends or re latives? Once a week 07/24/2024 How often do you attend alevism or episcopalian serv ices? Never 07/24/2024 Do you belong to any clubs o r organizations such as alevism groups, unions, fraternal or athletic groups, or [...] time in the past 12 m [facility], were you homeless or living in a alf (including now)? No 07/24/2024 Personal Safety Answer Date Recorded Have you ever been in or are you currently in a harmful physical or emotional relationship or is someone making you feel afraid or unsafe? 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 Male 10:48 AM MUNICIPAL BOND TRADER Gender Identity Not on file Sexual Orientation Not on file documented as of this encounter Progress Notes * Sonia Pina NP - 08/07/2024 11:17 AM CDT OPAT Monitoring NOTE 08/18 : ID appt TBD: Tx END Inpt DIGITAL INTERN/Attg: AshleyP - Sonia Pina / Carlos Outpt: [place] HI: [facility] Home Infusion ([phone]) HH: Justin WALDRON Dx: Mycobacterial disease Abx: Amikacin , Ethambutol, Azithro Labs: CBC with diff and CMP Imaging: none Access: PICC FYI: Events: Labs: Date WBC ANC Eos Plt SCr AST/ALT 08/02 11.0 6.6 0.3 308 0.82 Assessment/Plan: - 08/07/24 - no change in abx plan Time spent: 10 minutes 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 documented as of this encounter Care Teams Makeup Editor Relationship Specialty Start Date End Date Kirt Lindsay DO PCP - General Internal Medicine 02/02/21 Josué Del Valle MD PhD Medical Oncologist/Facilities Maintenance Supervisor Medical Oncology 08/26/19 Cal Carranza DO [address] [place] [address] Red Leader Internal Medicine 06/12/23 Halie Khan MD [address] [place] [address] Research Soil Scientist Critical Care Med 06/12/23 Wilfred Kinsey MD [address] [address] Consulting Physician Gastroenterology 03/02/24 documented as of this encounter
--- OUTSIDE RECORDS SUMMARY | 2024-11-22 10:45 | XMS_ITS | Encounter Summary ---
Author Organization [facility] Address [address] [facility] [address] [place] [address] Phone Care Team Providers Care Carpet Installation Specialist Name Role Phone Josué Del Valle MD PhD Unavailable [phone] Kirt Lindsay DO Primary Care Provider [phone] Cal Carranza DO Unavailable Halie Khan MD Unavailable [phone] Wilfred Kinsey MD Unavailable Reason for Visit * Reason Onset Date Comments OPAT Sign-Off 08/13/2024 Encounter Details Date Type Department Care Team (Late st Contact Info) Description 08/13/2024 Telephone [facility] Infectious Diseases [address] [place] [address] [address] [place] [address] Page Marsh OPAT Sign-Off Social History Tobacco Use Types Packs/Day Years Used Date Smoking Tobacco: Some Days Cigarettes 0.5 40.4 Started: 1985 Smokeless Tobacco: Never Comments:pt states tried to quit; smoking 5 cigs/wk [facility] Utilities Answer Date Recorded In the past 12 months has [employer], gas, oil, or water company threatened to [...] week 07/24/2024 How often do you attend holiness or restorationism serv ices? Never 07/24/2024 Do you belong to any clubs o r organizations such as holiness groups, unions, fraternal or athletic groups, or [...] place to sleep or slept in a assisted (including now)? No 03/30/2024 Housing Stability Vital [...] time in the past 12 m [facility], were you homeless or living in a assisted (including now)? No 07/24/2024 Personal Safety Answer Date Recorded Have you ever been in or are you currently in a harmful physical or emotional relationship or is someone making you feel afraid or unsafe? 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 Male 10:48 AM CREDIT ADMINISTRATION MANAGER Gender Identity Not on file Sexual Orientation Not on file documented as of this encounter Miscellaneous Notes * Telephone Encounter - Page Marsh - 08/13/2024 1:07 PM CDT OPAT Monitoring NOTE 08/18 : ID appt TBD: Tx END Inpt SOLAR FABRICATION TECHNICIAN/Attg: AshleyP - Sonia Pina / Carlos Outpt: [place] HI: [facility] Home Infusion ([phone]) HH: Justin WALDRON Dx: Mycobacterial disease Abx: Amikacin , Ethambutol, Azithro Labs: CBC with diff and CMP amikacin pk Imaging: none Access: PICC FYI: Events:08/12 amikacin on hold Labs: Date WBC ANC Eos Plt SCr AST/ALT Amik Pk 08/02 11.0 6.6 0.3 308 0.82 43/28 08/10 9.6 6240 374 405 1.43 69/86 Assessment/Plan: - 08/07/24 - no change in abx plan -08/13 labs received from [facility] and sent to Dr Pinzon, will hold amikacin. Requested serum lactate level. 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
--- OUTSIDE RECORDS SUMMARY | 2024-11-22 10:45 | XMS_ITS | Encounter Summary ---
Author Organization [facility] Address [address] [facility] [address] [place] [address] Phone Care Team Providers Care Health Promotion Specialist Name Role Phone Josué Del Valle MD PhD Unavailable [phone] Kirt Lindsay DO Primary Care Provider [phone] Cal Carranza DO Unavailable [phone] Halie Khan MD Unavailable [phone] Wilfred Kinsey MD Unavailable Encounter Details Date Type Department Care Team (Late st Contact Info) Description 08/13/2024 Telephone [facility] Infectious Diseases [address] [place] [address] Page Marsh Social History Tobacco Use Types Packs/Day Years Used Date Smoking Tobacco: Some Days Cigarettes 0.5 40.4 Started: 1985 Smokeless Tobacco: Never Comments:pt states tried to quit; smoking 5 cigs/wk [facility] Utilities Answer Date Recorded In the past 12 months has [employer], gas, oil, or water company threatened [...] week 07/24/2024 How often do you attend mu-ism or cheondoism serv ices? Never 07/24/2024 Do you belong to any clubs o r organizations such as mu-ism groups, unions, fraternal or athletic groups, or [...] any time in the past 12 m onths, were you homeless or living in a mcc (including now)? No 07/24/2024 Personal Safety Answer Date Recorded Have you ever been in or are you currently in a harmful physical or emotional relationship or is someone making you feel afraid or unsafe? 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 Gender Identity Not on file Sexual Orientation Not on file documented as of this encounter Miscellaneous Notes * Telephone Encounter - Page Marsh - 08/13/2024 8:39 AM CDT ----- Message from Nurse Page Perkins sent at 08/13/2024 7:52 AM CDT ----- Regarding: RE: Labs Shawn Please see below from Dr Pinzon ----- Message ----- From: Martín Pinozn MD Sent: 08/12/2024 10:37 PM CDT To: [...] Labs ----- Message ----- From: Birgit Waldron [facility] Sent: 08/12/2024 4:07 PM CDT To: Joni Coates Id Nurse Pool Subject: Labs Fyi, labs [...] documented as of this encounter Care Teams Health Promotion Specialist Relationship Specialty Start Date End Date Kirt Lindsay DO PCP - General Internal Medicine 02/02/21 Josué Del Valle MD PhD Medical Oncologist/Dial Buffer Medical Oncology 08/26/19 Cal Carranza DO [address] [address] Mobile Heavy Equipment Mechanic Internal Medicine 06/12/23 Halie Khan MD [address] [address] Electrician Third Critical Care Med 06/12/23 Wilfred Kinsey MD [address] [address] Consulting Physician Gastroenterology 03/02/24 documented as of this encounter
--- OUTSIDE RECORDS SUMMARY | 2024-11-22 10:45 | XMS_ITS | Encounter Summary ---
Author Organization [facility] Address [address] [place] [address] Phone Care Team Providers Care Manager Of Selection And Assessment Name Role Phone Josué Del Valle MD PhD Unavailable [phone] Kirt Lindsay DO Primary Care Provider [phone] Cal Carranza DO Unavailable [phone] Halie Khan MD Unavailable [phone] Wilfred Kinsey MD Unavailable Encounter Details Date Type Department Care Team (Late st Contact Info) Description 08/04/2024 Telephone [facility] Bone Marrow Transplant [address] [facility] 7th Floor, [place] [address] Josué Rice RN Social History Tobacco Use Types Packs/Day Years Used Date Smoking Tobacco: Some Days Cigarettes 0.5 40.4 Started: 1985 Smokeless Tobacco: Never Comments:pt states tried to quit; smoking 5 cigs/wk [facility] Utilities Answer Date Recorded In the past 12 months has [employer] electric, gas, oil, or water company threatened [...] week 07/24/2024 How often do you attend pentecostal or uatsdin serv ices? Never 07/24/2024 Do you belong to any clubs o r organizations such as pentecostal groups, unions, fraternal or athletic groups, or [...] place to sleep or slept in a half-way (including now)? No 03/30/2024 Housing Stability Vital Sign Answer [place] Recorded In the last 12 months, was t here a time when you were not able to pay the mortgage or rent on time? No 07/24/2024 In the past 12 months, how m any times have you moved where you were living? 0 07/24/2024 At any time in the past 12 m [facility], were you homeless or living in a half-way (including now)? No 07/24/2024 Personal Safety Answer Date Recorded Have you ever been in or are you currently in a harmful physical or emotional relationship or is someone making you feel afraid or unsafe? 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 Male 10:48 AM PROCUREMENT INTERNSHIP Gender Identity Not on file Sexual Orientation Not on file documented as of this encounter Miscellaneous Notes * Telephone Encounter - Josué Rice RN - 08/04/2024 10:20 AM CDT Transitional Care Management Discharged from [facility] on 08/02/24 to Home. Contact: Attempted 2 contacts (phone, EverySignalhart message) Current Outpatient Medications Medication Sig Dispense Refill acyclovir (ZOVIRAX) 400 mg tablet Take 1 tablet (400 mg total) by mouth 3 (three) times a day albuterol 2.5 mg /3 mL (0.083 %) nebulizer solution Take 3 mL (2.5 mg total) by nebulization every 6 (six) hours as needed for wheezing or shortness of breath amikacin IV syringe 25 mg/mL Infuse 28 mL (700 mg total) into a venous catheter 3 (three) times a week atorvastatin (LIPITOR) 40 mg tablet TAKE ONE TABLET (40 MG) BY MOUTH DAILY AT 5 PM LAST REFILL UNTIL SEEN 30 tablet 0 azithromycin (ZITHROMAX) 500 mg tablet Take 1 tablet (500 mg total) by mouth daily for 30 doses 30 tablet 0 cholecalciferol (VITAMIN D-3) 25 mcg (1,000 unit) tablet Take 2 tablets (2,000 Units total) by mouth every morning clopidogreL (PLAVIX) 75 mg tablet Take 1 tablet (75 mg total) by mouth daily 30 tablet 0 cyanocobalamin (Vitamin B-12) 1,000 mcg tablet Take 1 tablet (1,000 mcg total) by mouth every morning empagliflozin (JARDIANCE) 10 mg tablet Take 1 tablet (10 mg total) by mouth daily 30 tablet 0 ethambutoL (MYAMBUTOL) 400 mg tablet Take 3 tablets (1,200 mg total) by mouth daily 90 tablet 0 flash glucose scanning reader (Bagels and BeanStyle Evaristo 2 [place]) [facility] Use to test blood glucose continuously 1 each 1 flash glucose sensor (FreeStyle Evaristo 2 Sensor) kit Change sensor every 14 days 2 kit 0 tfecckepddo-esryteove-rdcpzibp (Trelegy Ellipta) 200-62.5-25 mcg inhaler Inhale 1 puff daily gabapentin (NEURONTIN) 300 mg capsule TAKE ONE CAPSULE BY MOUTH FOUR TIMES DAILY @ [id number] 120 capsule 11 guaiFENesin ER (MUCINEX) 600 mg 12 hr tablet Take 1 tablet (600 mg total) by mouth 2 (two) times a day heparin 10 unit/mL syringe Administer 5 mL (50 Units total) into catheter daily For each lumen 200 mL 0 isavuconazonium (CRESEMBA) 186 mg capsule Take 2 capsules (372 mg total) by mouth daily 60 capsule 0 metoprolol XL (TOPROL-XL) 25 mg extended release tablet Take 0.5 tablets (12.5 mg total) by mouth daily 15 tablet 0 montelukast (SINGULAIR) 10 mg tablet Take 1 tablet (10 mg total) by mouth nightly mycophenolate mofetil (CELLCEPT) 500 mg tablet Take 2 tablets (1,000 mg total) by mouth 2 (two) times a day nicotine (NICODERM CQ) [address] 1 patch on the skin daily 30 patch 1 omega-3 fatty acids (LOVAZA) 1 gram capsule Take 1 capsule (1 g total) by mouth daily ondansetron ODT (ZOFRAN-ODT) 4 mg disintegrating tablet Take 1 tablet (4 mg total) by mouth every 8(eight) hours as needed for nausea or vomiting 20 tablet 0 oxyCODONE (ROXICODONE) 5 mg immediate release tablet Take 1 tablet (5 mg total) by mouth every 4 (four) hours as needed for pain for up to 5 days 30 tablet 0 oxygen Administer 2 L/min into each nostril nightly Nightly and PRN pantoprazole DR (PROTONIX) 40 mg EC tablet TAKE 1 TABLET(40 MG) BY MOUTH TWICE DAILY 180 tablet 0 sodium chloride 0.9% injection Administer 5-10 mL into catheter daily For each lumen 200 mL 0 sodium chloride 3 % nebulizer solution Take 4 mL by nebulization 2 (two) times a day Use albuterol in nebulizer first, then saline, then Aerobika 240 mL 3 tacrolimus 0.5 mg immediate-release capsule TAKE ONE CAPSULE BY MOUTH EVERY OTHER DAY 15 capsule 11 Xarelto 20 mg tablet TAKE ONE TABLET BY MOUTH DAILY AT 9 AM 30 tablet 11 No current facility-administered medications for this visit. 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 documented as of this encounter Care Teams Manager Of Selection And Assessment Relationship Specialty Start Date End Date Kirt Lindsay DO PCP - General Internal Medicine 02/02/21 Josué Del Valle MD PhD Medical Oncologist/Patent Lawyer Medical Oncology 08/26/19 Cal Carranza DO [address] [place] [address] Investigator Utility Bill Complaints Internal Medicine 06/12/23 Halie Khan MD [address] [place] [address] Senior Software Development Manager Critical Care Med 06/12/23 Wilfred Kinsey MD [address] [facility] [address] [address] Consulting Physician Gastroenterology 03/02/24 documented as of this encounter
--- OUTSIDE RECORDS SUMMARY | 2024-11-22 10:45 | XMS_ITS | Encounter Summary ---
Author Organization [facility] Address [address] [facility] [address] [place] [address] Phone Care Team Providers Care Retort Condenser Attendant Name Role Phone Josué Del Valle MD PhD Unavailable [phone] Kirt Lindsay DO Primary Care Provider [phone] Cal Carranza DO Unavailable [phone] Halie Khan MD Unavailable [phone] Wilfred Kinsey MD Unavailable Encounter Details Date Type Department Care Team (Late st Contact Info) Description 08/12/2024 Telephone [facility] Scheduling [address] [place] [address] Irina Conrad Social History Tobacco Use Types Packs/Day Years Used Date Smoking Tobacco: Some Days Cigarettes 0.5 40.4 Started: 1985 Smokeless Tobacco: Never Comments:pt states tried to quit; smoking 5 cigs/wk [facility] Utilities Answer Date Recorded In the past 12 months has e electric, gas, oil, or water company [...] How often do you attend amish or evangelical serv ices? Never 07/24/2024 Do [...] place to sleep or slept in a correction (including now)? No 03/30/2024 Housing Stability Vital [...] in the past 12 m [facility], were you homeless or living in a correction (including now)? No 07/24/2024 Personal Safety Answer Date Recorded Have you ever been in or are you currently in a harmful physical or emotional relationship or is someone making you feel afraid or unsafe? 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 documented as of this encounter Care Teams Retort Condenser Attendant Relationship Specialty Start Date End Date Kirt Lindsay DO PCP - General Internal Medicine 02/02/21 Josué Del Valle MD PhD Medical Oncologist/Anesthesiology Crna Medical Oncology 08/26/19 Cal Carranza DO [address] [address] Waiter And Cashier Internal Medicine 06/12/23 Halie Khan MD [address] [facility] [address] [place] [address] Drink Waiter Critical Care Med 06/12/23 Wilfred Kinsey MD [address] [facility] [address] [id number] Consulting Physician Gastroenterology 03/02/24 documented as of this encounter
--- OUTSIDE RECORDS SUMMARY | 2024-11-22 10:46 | XMS_ITS | Encounter Summary ---
Author Organization [facility] Address [address] [facility] [address] [place] [address] Phone Care Team Providers Care Digital Marketing Coordinator Name Role Phone Josué Del Valle MD PhD Unavailable [phone] Kirt Lindsay DO Primary Care Provider [phone] Cal Carranza DO Unavailable [phone] Halie Khan MD Unavailable [phone] Wilfred Kinsey MD Unavailable Encounter Details Date Type Department Care Team (Late st Contact Info) Description 07/14/2024 Telephone [facility] Infectious Diseases [address] [place] [address] Page Marsh Social History Tobacco Use Types Packs/Day Years Used Date Smoking Tobacco: Some Days Cigarettes 0.5 40.4 Started: 1985 Smokeless Tobacco: Never Comments:pt states tried to quit [facility] Utilities Answer Date Recorded In the past 12 months has th e electric, gas, oil, or water company threatened to shut off services in your home? No 07/15/2024 Social Connection and Isolation Panel [NHANES] A nswer Date Recorded In a typical week, how many times do you talk on the phone with family, friends, or neighbors? Twice a week 07/15/2024 How often do you get together with friends or re latives? Once a week 07/15/2024 How often do you attend jainism or orthodox serv ices? Never 07/15/2024 Do you belong to any clubs o r organizations such as jainism groups, unions, fraternal or athletic groups, or school groups? Yes 07/15/2024 How often do you attend meet ings of the clubs or organizations you belong to? Never 07/15/2024 Are you , , di vorced, , never , or living with a partner? 07/15/2024 AUDIT-C Answer Date Recorded Q1: How often [...] medical care, and heating? Not very hard 07/15/2024 PHQ-2 Answer Date Recorded PHQ-2 Total Score 0 06/16/2024 Hunger Vital Sign Answer Date Recorded Within the past 12 months, y ou worried that your food would run out before you got the money to buy more. Never true 07/15/20 24 Within the past 12 months, t he food you bought just didn't last and you didn't have money to get more. Never true 07/15/2024 PRAPARE - Transportation Answer Date Re corded In the past 12 months, has l ack of transportation kept you from medical appointments or from getting medications? No 06/19 In the past 12 months, has l ack of transportation kept you from meetings, work, or from getting things needed for daily living? No 07/15/2024 Housing Stability Vital Sign Answer Morro e [...] the mortgage or rent on time? No 07/15/2024 In the past 12 months, how m any times have you moved where you were living? 0 07/15/2024 At any time in the past 12 m [facility], were you homeless or living in a mcc (including now)? No 07/15/2024 Personal Safety Answer Date Recorded Have you ever been in or are you currently in a harmful physical or emotional relationship or is someone making you feel afraid or unsafe? Denies 06/15/2024 Sex and Gender Information Value Date Recorded Sex Assigned at Not on file Legal Sex Male 10:48 AM ARMOURED CAR ESCORT Gender Identity Not on file Sexual Orientation Not on file documented as of this encounter Miscellaneous Notes * Telephone Encounter - Page Marsh - 07/14/2024 9:38 AM CDT Letter sent via #waywire and mailed to patient regarding scheduling appts. 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 documented as of this encounter Care Teams Digital Marketing Coordinator Relationship Specialty Start Date End Date Kirt Lindsay DO PCP - General Internal Medicine 02/02/21 Josué Del Valle MD PhD Medical Oncologist/Micro Lab Analyst Medical Oncology 08/26/19 Cal Carranza DO [address] [address] Procurement Inspector Internal Medicine 06/12/23 Halie Khan MD [address] [facility] [address] [address] Excavator Backhoe Operator Critical Care Med 06/12/23 Wilfred Kinsey MD [address] [address] Consulting Physician Gastroenterology 03/02/24 documented as of this encounter
--- OUTSIDE RECORDS SUMMARY | 2024-11-22 10:46 | XMS_ITS | Encounter Summary ---
Author Organization [facility] Address [address] [facility] [address] [place] [address] Phone Care Team Providers Care Water Resource Engineer Name Role Phone Josué Del Valle MD PhD Unavailable [phone] Kirt Lindsay DO Primary Care Provider [phone] Cal Carranza DO Unavailable [phone] Halie Khan MD Unavailable [phone] Wilfred Kinsey MD Unavailable Encounter Details Date Type Department Care Team (Late st Contact Info) Description 07/13/2024 Telephone [facility] Infectious Diseases [address] [place] [phone] Page Marsh Social History Tobacco Use Types Packs/Day Years Used Date Smoking Tobacco: Some Days Cigarettes 0.5 40.4 Started: 1985 Smokeless Tobacco: Never Comments:pt states tried to quit [facility] Utilities Answer Date Recorded In the past 12 months has th e electric, gas, oil, or water company threatened to shut off services in your home? No 06/16/2024 Social Connection and Isolation Panel [NHANES] A nswer Date Recorded In a typical week, how many times do you talk on the phone with family, friends, or neighbors? Twice a week 06/16/2024 How often do you get together with friends or re latives? Once a week 06/16/2024 How often do you attend judaism or taoist serv ices? Never 06/16/2024 Do you belong to any clubs o r organizations such as judaism groups, unions, fraternal or athletic groups, or school groups? Yes 06/16/2024 How often do you attend meet ings of the clubs or organizations you belong to? Never 06/16/2024 Are you , , di vorced, , never , or living with a partner? 06/16/2024 AUDIT-C Answer Date Recorded Q1: How often do you have a drink containing alc ohol? Never 01/12/2022 Average Number of Drinks Not on file 022 Frequency of Binge Drinking Not on file 12/20 Overall Financial Resource Strain (CARDIA) Answe r Date Recorded How hard is it for you to pa y for the very basics like food, housing, medical care, and heating? Not very hard 06/16/2024 PHQ-2 Answer Date Recorded PHQ-2 Total Score 0 06/16/2024 Hunger Vital Sign Answer Date Recorded Within the past 12 months, y ou worried that your food would run out before you got the money to buy more. Never true 06/16/20 24 Within the past 12 months, t he food you bought just didn't last and you didn't have money to get more. Never true 06/16/2024 PRAPARE - Transportation Answer Date Re corded In the past 12 months, has l ack of transportation kept you from medical appointments or from getting medications? No 05/20 In the past 12 months, has l ack of transportation kept you from meetings, work, or from getting things needed for daily living? No 06/16/2024 Housing Stability Vital Sign Answer Morro e [...] the mortgage or rent on time? No 06/16/2024 In the past 12 months, how m any times have you moved where you were living? 0 06/16/2024 At any time in the past 12 m [facility], were you homeless or living in a intermediate (including now)? No 06/16/2024 Personal Safety Answer Date Recorded Have you ever been in or are you currently in a harmful physical or emotional relationship or is someone making you feel afraid or unsafe? Denies 06/15/2024 Sex and Gender Information Value Date Recorded Sex Assigned at Not on file Legal Sex Male 10:48 AM MEDICAL LAB SPECIALIST Gender Identity Not on file Sexual Orientation Not on file documented as of this encounter Miscellaneous Notes * Telephone Encounter - Page Marsh - 07/13/2024 10:33 AM CDT Lvm with pt, requesting call back to discuss setting up IV amikacin. 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 documented as of this encounter Care Teams Water Resource Engineer Relationship Specialty Start Date End Date Kirt Lindsay DO PCP - General Internal Medicine 02/02/21 Josué Del Valle MD PhD Medical Oncologist/Pitch Gatherer Medical Oncology 08/26/19 Cal Carranza DO [address] [place] [address] Back Order Clerk Internal Medicine 06/12/23 Halie Khan MD [address] [facility] [address] [place] [address] Semiconductor Wafer Inspector Critical Care Med 06/12/23 Wilfred Kinsey MD [address] [address] Consulting Physician Gastroenterology 03/02/24 documented as of this encounter
--- OUTSIDE RECORDS SUMMARY | 2024-11-22 10:46 | XMS_ITS | Encounter Summary ---
Author Organization [facility] Address [address] [place] [address] Phone Care Team Providers Care Sugar Refinery Supervisor Name Role Phone Josué Del Valle MD PhD Unavailable [phone] Kirt Lindsay DO Primary Care Provider [phone] Cal Carranza DO Unavailable [phone] Halie Khan MD Unavailable Wilfred Kinsey MD Unavailable Encounter Details Date Type Department Care Team (Late st Contact Info) Description 07/08/2024 Orders Only [facility] Infectious Diseases [address] [place] [phone] Page Marsh Social History Tobacco Use Types Packs/Day Years Used Date Smoking Tobacco: Some Days Cigarettes 0.5 40.4 Started: 1985 Smokeless Tobacco: Never Comments:pt states tried to quit [facility] Utilities Answer Date Recorded In the past [...] week 06/16/2024 How often do you attend yazdanism or muslim serv ices? Never 06/16/2024 Do you belong [...] any time in the past 12 m [facility], were you homeless or living in a [facility] (including now)? No 06/16/2024 Personal Safety Answer Date Recorded Have you ever been in or are you currently in a harmful physical or emotional relationship or is someone making you feel afraid or unsafe? 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 documented as of this encounter Care Teams Sugar Refinery Supervisor Relationship Specialty Start Date End Date Kirt Lindsay DO PCP - General Internal Medicine 02/02/21 Josué Del Valle MD PhD Medical Oncologist/Sawmill Production Worker Medical Oncology 08/26/19 Cal Carranza DO [address] [place] [address] Diesel Electrician Internal Medicine 06/12/23 Halie Khan MD [address] [place] [address] Used Car Salesperson Critical Care Med 06/12/23 Wilfred Kinsey MD [address] [facility] [place] [address] Consulting Physician Gastroenterology 03/02/24 documented as of this encounter
--- OUTSIDE RECORDS SUMMARY | 2024-11-22 10:46 | XMS_ITS | Encounter Summary ---
Author Organization [facility] Address [address] [place] [address] Phone Care Team Providers Care Supplier Quality Specialist Name Role Phone Josué Del Valle MD PhD Unavailable Kirt Lindsay DO Primary Care Provider [phone] Cal Carranza DO Unavailable [phone] Halie Khan MD Unavailable [phone] Wilfred Kinsey MD Unavailable Encounter Details Date Type Department Care Team (Late st Contact Info) Description 07/31/[address] 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 Never 07/24/2024 Do you belong to any clubs o r organizations such as caodaism groups, unions, fraternal or athletic groups, or [...] any time in the past 12 m [facility], were you homeless or living in a halfway (including now)? No 07/24/2024 Personal Safety Answer Date Recorded Have you ever been in or are you currently in a harmful physical or emotional relationship or is someone making you feel afraid or unsafe? 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 Gender Identity Not on file Sexual Orientation Not on file documented as of this encounter Miscellaneous Notes * Addendum Note - Gregorio Lee RMA - 07/31/2024 12:53 PM CDTAddended by: GREGORIO LEE on: 08/18/2024 09:46 AM Modules accepted: Orders * Addendum Note - Gregorio Lee RMA - 07/31/2024 12:53 PM CDTAddended by: GREGORIO LEE on: 08/18/2024 09:46 AM Modules accepted: Orders * Addendum Note - Gregorio Lee RMA - 07/31/2024 12:53 PM CDTAddended by: GREGORIO LEE on: 08/18/2024 09:47 AM Modules accepted: Orders documented in this encounter Plan of Treatment Scheduled Orders Name Type Priority Associated Diagnoses Orde r Schedule Lactate dehydrogenase (LD) Lab STAT AML s/p Allo SCT in 2008 Expected: 09/09/2024, Expires: 07/31/2025 Type and screen Lab STAT AML s/p Allo SCT in 2008 Expected: 09/09/2024, Expires: 07/31/2025 CBC with auto differential Lab STAT AML s/p Allo SCT in 2008 Expected: 09/09/2024, Expires: 07/31/2025 documented as of this encounter Visit Diagnoses Diagnosis AML s/p Allo SCT in 2008- Primary documented in this encounter Additional Health Concerns Infection Onset Date 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 documented as of this encounter Care Teams Supplier Quality Specialist Relationship Specialty Start Date End Date Kirt Lindsay DO PCP - General Internal Medicine 02/02/21 Josué Del Valle MD PhD Medical Oncologist/Glass Ribbon Machine Operator Assistant Medical Oncology 08/26/19 Cal Carranza DO [address] [address] Shading Painter Internal Medicine 06/12/23 Halie Khan MD [address] [id number] Special Education Associate Critical Care Med 06/12/23 Wilfred Kinsey MD [address] [address] Consulting Physician Gastroenterology 03/02/24 documented as of this encounter
--- OUTSIDE RECORDS SUMMARY | 2024-11-22 10:46 | XMS_ITS | Encounter Summary ---
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 33.[address] [facility] MCHC 32.5 32.3 - 35.7 g/dL [facility] RDW CV 16.9(H) 11.1 - 14.9 % [facility] RDW SD 60.6(H) 35.7 - 48.[address] [facility] NRBC abs 0.07(H) 0.00 - 0.01 K/cumm [facility] Blood (Blood, Venous) 07/19/2024 2:23 AM CDT 07/19/2024 2:33 AM CDT Jordan Colby DO LAB BLOOD ORDERABLES Final Res ult [facility] [address] [facility] Department [place] [address] documented in this encounter Visit Diagnoses Diagnosis COPD exacerbation (HCC)- Primary Obstructive chronic bronchitis with exacerbation Abdominal pain, generalized documented in this encounter Administered Medications Inactive Administered Medications - up to 3 most recent administrations Medication Order MAR Action Action Date Dose Rate Site amoxicillin-clavulanate (AUGMENTIN) 875-125 mg per tablet 875 mg of amoxicillin 875 mg of amoxicillin, oral, 2 times daily, First dose on 07/19/24 at 0900, Indications: PneumoniaIndications:Pneu monia Given 07/19/2024 7:18 AM CDT 875 mg of amoxicillin ipratropium-albuteroL (DUO-NEB) 0.5-2.5 mg/3 mL nebulizer solution 3 mL 3 mL, nebulization, Once, On 07/19/24 at 0648, For 1 dose, Indications: Chronic Obstructive Pulmonary Disease with BronchospasmsIndications: Chronic Obstructive Pulmonary Disease with Bronchospasms Given 07/19/2024 6:54 AM CDT 3 mL oxyCODONE (ROXICODONE) tablet 5 mg 5 mg, oral, Once, On 07/19/24 at 0648, For 1 dose, Indications: PainIndications:Pain Given 07/19/2024 6:51 AM CDT 5 mg documented in this encounter Active and Recently Administered Medications Times are shown in CDT. Scheduled Medication Order 07/17/2024 07/18/2024 07/19/2024 amoxicillin-clavulanate (AUGMENTIN) 875-125 mg per tablet 875 mg of amoxicillin 875 mg of amoxicillin, oral, 2 times daily, First dose on 07/19/24 at 0900, Indications: Pneumonia 0718 (Given - Provid er: Fadia Neff RN - Comment: Pt up for discharge, giving meds prior to discharge.) ipratropium-albuteroL (DUO-NEB) 0.5-2.5 mg/3 mL nebulizer solution 3 mL (COMPLETED) 3 mL, nebulization, Once, On 07/19/24 at 0648, For 1 dose, Indications: Chronic Obstructive Pulmonary Disease with Bronchospasms 0654 (Given - Provid er: Court Neff, BRANDEN) oxyCODONE (ROXICODONE) tablet 5 mg (COMPLETED) 5 mg, oral, Once, On 07/19/24 at 0648, For 1 dose, Indications: Pain 0651 (Given - Provid er: Gurinder Scott RN) documented in this encounter Orders Nursing Count Last Ordered Date First Orde red Date MISCELLANEOUS NURSING CARE ORDER (SPECIFY) 07/19/2024 IV Count Last Ordered Date First Orde red Date SALINE LOCK IV 1 07/19/2024 documented in this encounter Additional Health Concerns Infection Onset Date 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 documented as of this encounter Care Teams Talent Development Specialist Relationship Specialty Start Date End Date Kirt Lindsay DO PCP - General Internal Medicine 02/02/21 Josué Del Valle MD PhD Medical Oncologist/Technology Architect Medical Oncology 08/26/19 Cal Carranza DO [address] [facility] [address] [place] [address] Welcome [facility] Agent Internal Medicine 06/12/23 Halie Khan MD [address] [facility] [address] [place] [address] Sofa Cover Inspector Critical Care Med 06/12/23 Wilfred Kinsey MD [address] [address] Consulting Physician Gastroenterology 03/02/24 documented as of this encounter
--- OUTSIDE RECORDS SUMMARY | 2024-11-22 10:46 | XMS_ITS | Encounter Summary ---
Author Organization [facility] Address [address] [place] [address] Phone Care Team Providers Care Garage Mechanic Name Role Phone Josué Del Valle MD PhD Unavailable [phone] Kirt Lindsay DO Primary Care Provider [phone] Cal Carranza DO Unavailable [phone] Halie Khan MD Unavailable [phone] Wilfred Kinsey MD Unavailable Reason for Referral * Consultation (Routine) - Authorized Specialty Diagnoses / Procedures Referred By Contac t Referred To Contact Audiology Diagnoses 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 No # of visits: 1 Comments Amikacin monitoring * Cardiology (Routine) - Pending Review Specialty Diagnoses / Procedures Referred By Ana M anderson Referred To Contact Diagnoses 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) Procedures ECG 12 lead Martín Pinzon MD [address] [place] [address] Phone: tel: fax: [facility] (All Locations) Referral ID Status Reason Start Date Expiration Date V isits Requested Visits Authorized [id number] Pending Review 07/07/2024 08/06/2025 1 1 Reason for Visit * Consultation (Routine) - Pending Review Specialty Diagnoses / Procedures Referred By Ana M anderson Referred To Contact Infectious Diseases Diagnoses 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) Pneumonia due to other aerobic gram-negative bacteria, unspecified laterality, unspecified part of lung ([facility]) Martín Pinzon MD [address] [place] [address] Phone: tel: fax: [facility] (All Locations) Referral ID Status Reason Start Date Expiration Date Visits Requested Visits Authorized [id number] Pending Review Specialty Services Required 06/23/2024 07/23/2025 6 6 Encounter Details Date Type Department Care Team (Latest Contact Info) Description 07/07/2024 10:40 AM CDT Office Visit [facility] Infectious Diseases [address] [place] [address] [address] [place] [address] Martín Pinzon MD [address] [place] [address] 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) (Primary Dx); Tobacco abuse; Panlobular emphysema (HCC); Moderate malnutrition (CMS/HCC); AML s/p Allo SCT in 2008; History of pulmonary embolism; Gastroesophageal reflux disease, unspecified whether esophagitis present; Pneumonia due to other aerobic gram-negative bacteria, unspecified laterality, unspecified part of lung (HCC) Social History Tobacco Use Types Packs/Day Years Used Date Smoking Tobacco: Some Days Cigarettes 0.5 40.4 Started: 1985 Smokeless Tobacco: Never Tobacco Cessation:Ready to Q uit: Not Asked; Counseling Given: Not Answered Comments:pt states tried to quit [facility] Utilities Answer Date Recorded In the past 12 months has th e Wattpad, gas, oil, or water [employer] threatened to shut off services in your home? No 06/16/2024 Social Connection and Isolation Panel [NHANES] A nswer Date Recorded In a typical week, how many times do you talk on the phone with family, friends, or neighbors? Twice a week 06/16/2024 How often do you get together with friends or re latives? Once a week 06/16/2024 How often do you attend buddhism or jainism serv ices? Never 06/16/2024 Do you belong [...] any time in the past 12 m [facility], were you homeless or living in a assisted (including now)? No 06/16/2024 Personal Safety Answer Date Recorded Have you ever been in or are you currently in a harmful physical or emotional relationship or is someone making you feel afraid or unsafe? Denies 06/15/2024 Sex and Gender Information Value Date Recorded Sex Assigned at Not on file Legal Sex Male 10:48 AM [employer] CONSULT[employer] Gender Identity Not on file Sexual Orientation Not on file documented as of this encounter Last Filed Vital Signs Vital Sign Reading Time Taken Comments Blood Pressure 100/65 07/07/2024 10:45 AM CDT Pulse 110 07/07/2024 10:45 AM CDT Temperature - - Respiratory Rate 18 07/07/2024 10:45 AM CDT Oxygen Saturation 97% 07/07/2024 10:45 AM CDT Inhaled Oxygen Concentration - - Weight 58.2 kg (128 lb 4.8 oz) 07/07/2024 10:45 AM CDT Height - - Body Mass Index 17.89 06/16/2024 3:00 PM CDT documented in this encounter Patient Instructions * Patient Instructions* Martín Pinzon MD - 07/07/2024 10:40 AM CDT Start azithromycin 250 mg po daily. If tolerated, we will increase to 500 mg po daily. Start ethambutol 1200 mg po daily. We have ordered a PICC line for amikacin 800 mg IV -- x 6 weeks We have ordered clofazimine 100 mg daily from [employer]. This will take a couple weeks. Consent signed today. Will need baseline audiometry and again at end of amikacin therapy Check color vision once monthly while on ethambutol [email or web address] We will order clofazimine 100 mg po daily (consent signed today) Use your nebulizer for airway clearance: albuterol-->3% saline (ordered)-->Aerobika twice daily Continue working on achieving total abstinence from smoking (good progress so far) We have made a referral to the combined ID/Pulmonary ID Clinic (Where Dr Pinzon will also follow you). Until that appt is established, we will follow you in the ID clinic. Call us with any questions or concerns, or contact through [employer]. documented in this encounter Ordered Prescriptions Prescription Sig Dispense Quantity Refills Last Filled Start Date End Date ethambutoL (MYAMBUTOL) 400 mg tabletIndications :Mycobacteriosis Take 3 tablets (1,200 mg total) by mouth daily 90 tablet 11 07/07/2024 4 azithromycin (ZITHROMAX) 250 mg tablet Take 1 tablet (250 mg total) by mouth daily 30 tablet 11 07/07/2024 4 sodium chloride 3 % nebulizer solutionIndicatio ns:airway clearanc Take 4 mL by nebulization 2 (two) times a day Use albuterol in nebulizer first, then saline, then Aerobika 240 mL 3 07/07/2024 4 documented in this encounter Progress Notes * Martín Pinzon MD - 07/07/2024 10:40 AM CDT Infectious Disease Outpatient Follow Up Note Subjective Chief Complaint: Cavitary pulmonary M avium infection HPI: The patient is a 58 y.o. male Medically complicated with smear positive,cavitary pulmonary M avium disease documented by bronchoscopy with BAL and BW cultures on 06/16/24, in setting of 02 requiring (at night) severe COPD, current smoking (down to a few puffs a week ), GERD w/HH and erosive esophagitis, possible aspiration, HSCT for AML (2008) in remission, Hx of GVHD, insulin requiring DM. Hx ofazithromycin monotherapy for prophylaxis in setting of GVHD. Josué Del Valle follows him for the oncology issues. Hx of MSSA bacteremia in February 2024 felt to be either pulmonary or intravascular source, treated with 6 wks of cefazolin. Recent hospitalization for Stenotrophomonas pneumonia. Has chronic productive cough w/o hemoptysis. Not using airway clearance, but has a home nebulizer for albuterol and an Aerobika that he isn't using. Chronically underweight, which he states has been the case since high school. Previously followed by Halie Khan, but now is follwed by Cruz Molina. The patient states that Dr Molina told him to come here for M avium treatment. He is on voriconazole for antifungal prophylaxis. Wants to proceed with treatment for M avium with pending susceptibilities, which will likely not be available for 3-4 weeks due to need for subculturing before sending out, anticipated to be 07/13 per the lab. Objective Vitals: Most Recent : BP 100/65 Pulse 110 Resp 18 Wt 58.2 kg (128 lb 4.8 oz) SpO2 97% BMI 17.89 kg/m?? Physical Exam: Physical Exam Vitals reviewed. Constitutional: General: He is not in acute distress. Appearance: He is ill-appearing. He is not toxic-appearing. Comments: Chronically ill appearing. Cachectic. Coughing. HENT: Mouth/Throat: Pharynx: Oropharynx is clear. Eyes: General: No scleral icterus. Cardiovascular: Rate and Rhythm: Tachycardia present. Heart sounds: Normal heart sounds. No murmur heard. Pulmonary: Comments: Decreased BS bilaterally. No wheezes. Abdominal: General: Abdomen is flat. Palpations: Abdomen is soft. Tenderness: There is no abdominal tenderness. Musculoskeletal: General: No swelling. Right lower leg: No edema. Left lower leg: No edema. Skin: Coloration: Skin is not jaundiced. Findings: No rash. Neurological: General: No focal deficit present. Mental Status: He is oriented to person, place, and time. Psychiatric: Mood and Affect: Mood normal. Lab/Radiology/Diagnostic Review: I reviewed the following laboratory and imaging result(s). Micro: Lab Results Component Value Date MICROBIOLOGY (.) 06/19/2024 Final Report: Enterococcus species, vancomycin resistant MICROBIOLOGY Final Report: No growth 06/16/2024 MICROBIOLOGY Final Report: No growth 06/16/2024 MICROBIOLOGY (.) 06/16/2024 Preliminary Report: Growth in broth only Mycobacterium avium Susceptibility testing performed only upon physician request. Please contact the laboratory at [phone] if susceptibility testing is needed. MICROBIOLOGY Preliminary Report: No growth of fungus to date 06/16/2024 MICROBIOLOGY 06/16/2024 Direct Stain Examination - Final: Negative for: Pneumocystis jirovecii MICROBIOLOGY (.) 06/16/2024 Final Report: Greater than or equal to 1,000 colonies/ml of Stenotrophomonas maltophilia For susceptibility results, refer to accession number [id number] on the bronch wash culture from06/16/24 Plus growth of clinically insignificant bacterial lalito. MICROBIOLOGY Final Report: Target not detected 06/16/2024 MICROBIOLOGY (.) 06/16/2024 Preliminary Report: Growth in broth only Mycobacterium avium Susceptibility testing results to follow. MICROBIOLOGY Preliminary Report: No growth of fungus to date 06/16/2024 MICROBIOLOGY (.) 06/16/2024 Final Report: 10,000 to 100,000 colonies/mL of Stenotrophomonas maltophilia Plus growth of clinically insignificant bacterial lalito. MICROBIOLOGY Final Report: Target not detected 06/16/2024 MICROBIOLOGY Final Report: Target not detected 06/16/2024 MICROBIOLOGY Final Report: Target not detected 06/16/2024 Urinalysis: Resulted in the Past 12 Months 06/16/24 1603 COLORU Straw CLARITYU Clear SPECGRAVU 1.019 PHURINE 6.0 PROTURQL Negative GLUCOSEUR Negative KETONESU Negative BLOODUR Negative NITRITEU Negative LEUKESTUR Negative Hematology/Chemistry: CBC: Lab Results Component Value Date WBC 15.7 (H) 06/24/2024 HGB 10.7 (L) 06/24/2024 HCT 32.8 (L) 06/24/2024 LABPLAT 395 06/24/2024 NEUTOPHILPCT 55.1 06/24/2024 LYMPHOPCT 27.6 06/24/2024 MONOPCT 14.7 06/24/2024 EOSPCT 2.6 06/24/2024 CMP: Lab Results Component Value Date SODIUM 140 06/24/2024 POTASSIUM 4.7 06/24/2024 CHLORIDE 98 06/24/2024 CO2 34 (H) 06/24/2024 ANIONGAP 8 06/24/2024 GLUCOSE 139 06/24/2024 BUNSER 30 (H) 06/24/2024 CREATININE 0.71 (L) 06/24/2024 BCR NOT APPLICABLE 04/05/2016 CALCIUM 9.1 06/24/2024 PROTEIN 7.2 12/14/2016 ALBUMIN 3.0 (L) 06/22/2024 ALKPHOS 170 (H) 06/22/2024 ALT 65 (H) 06/22/2024 AST 57 (H) 06/22/2024 BILITOT 0.2 06/22/2024 Creatinine:Estimated Creatinine Clearance: 108.8 mL/min (A) (by Cockcroft-Gault based on SCr of 0.71 mg/dL (L)). Resulted in the Past 12 Months 06/24/24 0356 06/23/24 0334 06/22/24 0439 CREATININE 0.71* 0.79* 0.79* Inflammatory Markers: No results for input(s): SEDRATE , CRP in the last 8736 hours. Screening Results RPR:No results found for: LABRPR GC: No results found for: CTRACHOMATIS , NGONORRHOEAE Hepatitis Serologies: Lab Results Component Value Date HEPAIGM Nonreactive 09/07/2021 HEPBSAG Nonreactive 09/07/2021 HEPBCAB Nonreactive 09/07/2021 HEPCAB Nonreactive 09/07/2021 Virologic Testing: HIV Screen: Lab Results Component Value Date [id number] Nonreactive 03/04/2024 CD4: Lab Results Component Value Date CD4ABS 1,435 (H) 02/28/2022 CD4PCT 35 02/28/2022 Common Virologic Results: Lab Results Component Value Date CD4ABS 1,435 (H) 02/28/2022 CD4PCT 35 02/28/2022 Diagnostics: EKG: Lab Results Component Value Date VR 97 06/15/2024 AR 97 06/15/2024 PRIMSEC 138 06/15/2024 QRSIMSEC 78 06/15/2024 QTIMSEC 350 06/15/2024 QT 444 06/15/2024 PA 85 06/15/2024 RA 88 06/15/2024 TA 10 06/15/2024 DIAG 06/15/2024 Normal sinus rhythm Possible Inferior infarct , age undetermined Nonspecific ST and T wave abnormality Abnormal ECG When compared with ECG of 15-JUN-2024 17:16, (unconfirmed) Vent. rate has decreased BY 60 BPM Borderline criteria for Inferior infarct are now Present ST no longer elevated in Inferior leads T wave inversion no longer evident in Anterior leads Confirmed by SOHAM WINTERS M.D ([id number]) on 06/17/2024 11:43:02 AM Echo:Results for orders placed during the hospital encounter of 03/27/24 Transthoracic Echo (TTE) Limited/Followup Narrative Adult Echocardiogram + + :Name: BRI JONES Study Date: 03/28/2024 Status: MHB : : Patient Location: [address]^[id number]^MHBHeight: 71 in : : Weight: 134 lbBP: 118/73 mmHg: :: 1965 Gender: Male BSA: 1.8 m2 : :Reason For Study: pericardial effusion : :Ordering Physician: : :ADY NEAL : : : :Performed By: Ashley : :ZAFAR Hutton : + + Procedure A two-dimensional transthoracic echocardiogram with color flow and Doppler was performed in limited views only. Limited echo for Pericardial effusion. Left Ventricle The left ventricle is normal in size. There is normal left ventricular wall thickness. Left ventricular systolic function is low normal. Ejection Fraction = 50-55%. Mitral Valve There is no mitral valve stenosis. Aortic Valve The aortic valve opens well. Great Vessels IVC appears normal in size. IVC collapses normally with inspiration. Pericardium Small pericardial effusion. The echo/Doppler findings are inconclusive for cardiac tamponade. Pleural effusion noted. Interpretation Summary The left ventricle is normal in size. There is normal left ventricular wall thickness. Left ventricular systolic function is low normal. Ejection Fraction = 50-55%. Small pericardial effusion. The echo/Doppler findings are inconclusive for cardiac tamponade. Pleural effusion noted. + + :Measurements with Normals : :IVSd: 0.82 cm (0.6-1.2 cm)LVIDd: 4.8 cm(3.5-5.7 cm) : :LVPWd: 0.86 cm(0.6-1.1 cm)LVIDs: 3.5 cm(3.1-4.6 cm) : + + MMode/2D Measurements & Calculations FS: 26.5 % EDV(Teich): 107.0 ml ESV(Teich): 51.6 ml Doppler Measurements & Calculations RAP systole: 3.0 mmHg Electronically signed by: Rico Duff MD 03/28/2024 07:18 PM Imaging: My review of the image reference below: RUL cavitary infiltrate, progressed from 03/27/24. Will discuss with radiology. Results for orders placed during the hospital encounter of 06/12/24 CT Body Outside Consult Narrative EXAMINATION: RADIOLOGY CONSULTATION ON OUTSIDE IMAGING STUDY STUDY INITIALLY PERFORMED: 05/28/2024 at [facility]. TYPE OF STUDY: Multiple CT images of the chest without contrast are provided at the time of this interpretation. CONTRAST ROUTE: No contrast was administered. The protocol was adequate to address the clinical question. The outside final report was not available at the time of this second opinion interpretation. TYPE OF CONSULTATION: Consult on outside imaging study with images submitted through Outside Image Sharing Service DATE OF CONSULTATION: 06/13/2024 10:36 AM HISTORY: History of AML status post allogenic stem cell transplant 2009 complicated by [id number]. Diagnosed with pneumonia 03/27/2024 and completed antibiotic therapy. COMPARISON: CT chest with contrast 03/27/2024. FINDINGS: Centrilobular emphysema with dominant blebs in the anterior right hemithorax. Consolidation within the apices of the right lobe are stable to mildly improved from CT 03/27/2024. Left upper lobe posterior consolidation is mildly improved from 03/27/2024. New focal area of consolidation within the left upper lobe (table position -75.0). Previously imaged nodules in the left upper lobe measuring 0.8 centimeters (table position -32.5), right middle lobe measuring 0.7 cm (table position -65.0), and right lower lobe measuring 0.4 cm (table position 100.0) are stable. Subcentimeter right supra clavicular lymphadenopathy. No mediastinal or axillary lymphadenopathy. Heart size is normal. Pericardial effusion present. Mild multivessel coronary artery disease. Thoracic aorta is normal caliber. No acute processes within the imaged portion of the noncontrast evaluated upper abdomen. No suspicious osseous lesions. Impression 1. Stable to mild improvement in previously imaged bilateral upper lobe pulmonary consolidations; however, there is a new consolidation in the left upper lobe. Imaging appearance could be consistent with organizing pneumonia. 2. Stable pulmonary nodules. The findings, conclusions and recommendations within this report do not replace the initial findings, conclusions and recommendations made at the facility where the study was performed based upon the imaging and clinical condition at that time. Comparison with the prior report and clinical history is necessary. The provided images may or may not represent the [place] source data set and thus may contain changes that may lower the accuracy of this second-opinion interpretation. Dictated by: Carlos Eduardo Ma M.D. The radiology attending physician has personally reviewed this study, and had reviewed and/or edited this written report and agrees with it. Electronically signed by: John Paul Crenshaw M.D. FVC PRE Date Value Ref Range Status 2018 3.85 0 - 12 Liters Final FVC %PRE PRED Date Value Ref Range Status 2018 78 0 - 300 % Final FEV1 PRE Date Value Ref Range Status 2018 1.17 0 - 12 Liters Final FEV1 %PRE PRED Date Value Ref Range Status 2018 30 0 - 300 % Final Summary: Medically complicated 58 yo man with smear positive,cavitary pulmonary M avium disease is setting of 02 requiring severe COPD, current smoking, GERD w/HH and erosive esophagitis, possible aspiration, HSCT for AML (2008) in remission, Hx of GVHD, insulin requiring DM. Hx of MSSA bacteremia and Stenotrophomomas pneumonia. Hx of azithromycin monotherapy for prophylaxis in setting of GVHD. Chest CT: 05/28/24 Cavitary RUL (note reading appears to be in error. Have contacted radiology to revisit this) First/last positive AFB culture: 06/16/24 First negative AFB culture: Not achieved AFB-susceptibility: pending PFTs: None on record here since 2018 On NTM therapy since Not started Current NTMLD regimen: None Recommendations: Further evaluations: Baseline Ishihara (100%) Baseline EKG (Qtc 442) Quantitative immunoglobulins (last checked 3 years ago) Pneumococcal type specific abs Baseline audiometry and at end of amikacin Review May [address] in multidisciplinary conference on 07/08/24 (canceled due to technical issues) NC Chest CT in 4 months Monthly sputum exams for AFB stain and culture Interventions: Airway clearance measures with nebulized albuterol-->nebulized 3% saline and PEP device twice daily [id number] Smoking cessation Place PICC for amikacin (800 mg M-W-F x 6 wks) Amikacin peak/trough after 3rd dose Azithromycin 250 mg po daily. Increase to 500 mg daily if tolerated. Clofazimine 100 mg po daily (consented today. Request submitted to [facility] Ethambutol 1200 mg po daily Discuss non-steroid or low dose steroid inhaler with pulmonary Referral to combined Pulmonary/ID NTM clinic Assessment/Plan Diagnoses and all orders for this visit: 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) (A31.0) (Primary) Assessment & Plan: Cavitary RUL disease with M avium. Susceptibilities are pending. Spoke with laboratory who states that these will take ~3wks to return once submitted. Organism is being subcultured now with expectation of submitting this to [facility] lab on ~07/13. Beginning empiric therapy therapy pending susceptibilities given these delays and severity of disease. Avoiding rifamycin because of need for voriconazole prophylaxis. Evaluations and interventions as noted above. Follow up in 1 month here (or in combined ID/Pulm NTM clinic. Tobacco abuse (Z72.0) Panlobular emphysema (HCC) (J43.1) Moderate malnutrition (CMS/HCC) (E44.0) AML s/p Allo SCT in 2008 (C92.01) History of pulmonary embolism (Z86.711) Gastroesophageal reflux disease, unspecified whether esophagitis present (K21.9) Return in about 4 weeks (around 08/04/2024). documented in this encounter Miscellaneous Notes * Assessment & Plan Note - Martín Pinzon MD - 07/06/2024 11:57 AM CDT Associated Problem(s): Nontuberculous mycobacterial disease of lung ([facility]) ([facility]) Cavitary RUL disease with M avium. Susceptibilities are pending. Spoke with laboratory who states that these will take ~3wks to return once submitted. Organism is being subcultured now with expectation of submitting this to [facility] lab on ~07/13. Beginning empiric therapy therapy pending susceptibilities given these delays and severity of disease. Avoiding rifamycin because of need for voriconazole prophylaxis. Evaluations and interventions as noted above. Follow up in 1 month here (or in combined ID/Pulm NTM clinic depending on scheduling availability). documented in this encounter Plan of Treatment Scheduled Orders Name Type Priority Associated Diagnoses Orde r Schedule ECG 12 lead ECG Routine 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) ([facility]) Expected: 07/07/2024, Expires: 07/07/2025 Scheduled Referrals Name Type Priority Associated Diagnoses Orde r Schedule Ambulatory referral to Audiology (ADULT) Outpatient Referral Routine Nontuberculous mycobacterial disease of lung ([facility]) ([facility]) Expected: 07/21/2024 (Approximate), Expires: 07/07/2025 documented as of this encounter Visit Diagnoses Diagnosis 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) ([facility])- Primary Tobacco abuse Tobacco use disorder Panlobular emphysema ([facility]) Other emphysema Moderate malnutrition ([facility]) AML s/p Allo SCT in 2008 History of pulmonary embolism Personal history of venous thrombosis and embolism Gastroesophageal reflux disease, unspecified whether esophagitis present Pneumonia due to other aerobic gram-negative bacteria, unspecified laterality, unspecified part of lung ([facility]) documented in this encounter Orders Outpatient Referral Count Last Ordered Date Fir st Ordered Date AMB REFERRAL TO INFECTIOUS DISEASE 1 2023 documented in this encounter Additional Health Concerns Infection Onset Date 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 documented as of this encounter Care Teams Garage Mechanic Relationship Specialty Start Date End Date Kirt Lindsay DO PCP - General Internal Medicine 02/02/21 Josué Del Valle MD PhD Medical Oncologist/Auto Salvage Worker Medical Oncology 08/26/19 Cal Carranza DO [address] [place] [address] [employer] Internal Medicine 06/12/23 Halie Khan MD [address] [place], [place] [id number] Jewel Waxer Critical Care Med 06/12/23 Wilfred Kinsey MD [address] [address] Consulting Physician Gastroenterology 03/02/24 documented as of this encounter
--- OUTSIDE RECORDS SUMMARY | 2024-11-22 10:46 | XMS_ITS | Encounter Summary ---
Author Organization [facility] Address [address] [place] [address] Phone Care Team Providers Care Digital Content Specialist Name Role Phone Josué Del Valle MD PhD Unavailable [phone] Kirt Lindsay DO Primary Care Provider [phone] Cal Carranza DO Unavailable [phone] Halie Khan MD Unavailable [phone] Wilfred Kinsey MD Unavailable Encounter Details Date Type Department Care Team (Late st Contact Info) Description 07/29/2024 Telephone [facility] Infectious Diseases [address] [place] [phone] Justine Raygoza BS Social History Tobacco Use Types Packs/Day Years Used Date Smoking Tobacco: Some Days Cigarettes 0.5 40.4 Started: 1985 Smokeless Tobacco: Never Comments:pt states tried to quit; smoking 5 cigs/wk [facility] Utilities Answer Date Recorded In the past 12 months has th [employer] electric, gas, oil, or water company threatened [...] week 07/24/2024 How often do you attend tenriism or synagogue serv ices? Never 07/24/2024 Do you belong to any clubs o r organizations such as tenriism groups, unions, fraternal or athletic groups, or [...] any time in the past 12 m [facility], were you homeless or living in [...] on file Legal Sex Male 10:48 AM [employer] Gender Identity Not on file Sexual Orientation Not on file documented as of this encounter Miscellaneous Notes * Telephone Encounter - Ashley Mccarthy - 07/29/2024 3:09 PM CDT Advised that I am not sure if ID is following at this time since he has not discharged * Telephone Encounter - Justine Raygoza BS - 07/29/2024 1:02 PM CDT Mildred from [facility] visiting nurses calling to confirm Kimberly will be following pt for iv abx Mildred @ [phone] 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 documented as of this encounter Care Teams Digital Content Specialist Relationship Specialty Start Date End Date Kirt Lindsay, DO PCP - General Internal Medicine 02/02/21 Josué Del Valle MD PhD Medical Oncologist/Institutional Commodity Analyst Medical Oncology 08/26/19 Cal Carranza DO [address] [place] [address] Monorail Operator Internal Medicine 06/12/23 Halie Khan MD [address] [place] [address] Black Powder Glazing Operator Critical Care Med 06/12/23 Wilfred Kinsey MD [address] [address] Consulting Physician Gastroenterology 03/02/24 documented as of this encounter
--- OUTSIDE RECORDS SUMMARY | 2024-11-22 10:46 | XMS_ITS | Encounter Summary ---
Author Organization [facility] Address [address] [facility] [address] [place] [address] Phone Care Team Providers Care Boating Safety Officer Name Role Phone Josué Del Valle MD PhD Unavailable Kirt Lindsay DO Primary Care Provider [phone] Cal Carranza DO Unavailable [phone] Halie Khan MD Unavailable [phone] Wilfred Kinsey MD Unavailable Encounter Details Date Type Department Care Team (Late st Contact Info) Description 07/31/2024 Telephone [facility] Infectious Diseases [address] [place] [phone] Lenka Baez, [facility] Social History Tobacco Use Types Packs/Day Years Used Date Smoking Tobacco: Some Days Cigarettes 0.5 40.4 Started: 1985 Smokeless Tobacco: Never Comments:pt states tried to quit; smoking 5 cigs/wk [facility] Utilities Answer Date Recorded In the past 12 months has [employer] electric, gas, oil, or water company threatened [...] How often do you attend buddhism or baptism serv ices? 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 Pinzon will continue to place orders * Telephone Encounter - Lenka Baez CMA - 07/31/2024 2:[address] Martín Pinzon follow this patient for IV Therapy at Home? Please call Ms. Hunt and confirm please. The contact number is [phone]. 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 documented as of this encounter Care Teams Boating Safety Officer Relationship Specialty Start Date End Date Kirt Lindsay DO PCP - General Internal Medicine 02/02/21 Josué Del Valle MD PhD Medical Oncologist/Electrocardiographic Technician Medical Oncology 08/26/19 Cal Carranza DO [address] [place] [address] Can Cutter Internal Medicine 06/12/23 Halie Khan MD [address] [address] Sports Manager Critical Care Med 06/12/23 Wilfred Kinsey MD [address] [address] Consulting Physician Gastroenterology 03/02/24 documented as of this encounter
--- OUTSIDE RECORDS SUMMARY | 2024-11-22 10:46 | XMS_ITS | Encounter Summary ---
Author Organization [facility] Address [address] [facility] [address] [place] [address] Phone Care Team Providers Care Junior Programmer Analyst Name Role Phone Josué Del Valle MD PhD Unavailable [phone] Kirt Lindsay DO Primary Care Provider [phone] Cal Carranza DO Unavailable [phone] Halie Khan MD Unavailable [phone] Wilfred Kinsey MD Unavailable Encounter Details Date Type Department Care Team (Late st Contact Info) Description 07/08/2024 Telephone [facility] Infectious Diseases [address] [place] [phone] Page Marsh Social History Tobacco Use Types Packs/Day Years Used Date Smoking Tobacco: Some Days Cigarettes 0.5 40.4 Started: 1985 Smokeless Tobacco: Never Comments:pt states tried to quit [facility] Utilities Answer Date Recorded In the past [...] week 06/16/2024 How often do you attend bahai or hindu serv ices? Never 06/16/2024 Do you belong [...] any time in the past 12 m [facility], were you homeless or living in a [facility] (including now)? No 06/16/2024 Personal Safety Answer Date Recorded Have you ever been in or are you currently in a harmful physical or emotional relationship or is someone making you feel afraid or unsafe? 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 Need to discuss with pt setting up PICC and IV Amikacin, labs and other testing. 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
--- OUTSIDE RECORDS SUMMARY | 2024-11-22 10:46 | XMS_ITS | Encounter Summary ---
Author Organization [facility] Address [address] [place] [address] Phone Care Team Providers Care Margin Analyst Name Role Phone Josué Del Valle MD PhD Unavailable [phone] Kirt Lindsay DO Primary Care Provider [phone] Cal Carranza DO Unavailable [phone] Halie Khan MD Unavailable [phone] Wilfred Kinsey MD Unavailable Encounter Details Date Type Department Care Team (Late st Contact Info) Description 07/15/2024 Telephone [facility] Infectious Diseases [address] [place] [phone] Justine Raygoza BS Social History Tobacco Use Types Packs/Day Years Used Date Smoking Tobacco: Some Days Cigarettes 0.5 40.4 Started: 1985 Smokeless Tobacco: Never Comments:pt states tried to quit; smoking 5 cigs/wk [facility] Utilities Answer Date Recorded In the past 12 months has th [employer] electric, gas, oil, or water company threatened [...] week 07/15/2024 How often do you attend episcopal or jain serv ices? Never 07/15/2024 Do you belong to any clubs o r organizations such as episcopal groups, unions, fraternal or athletic groups, or [...] place to sleep or slept in a prison (including now)? No 03/30/2024 Housing Stability Vital [...] were you homeless or living in a prison (including now)? No 07/15/2024 Personal Safety Answer Date Recorded Have you ever been in or are you currently in a harmful physical or emotional relationship or is someone making you feel afraid or unsafe? 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 documented as of this encounter Care Teams Margin Analyst Relationship Specialty Start Date End Date Kirt Lindsay DO PCP - General Internal Medicine 02/02/21 Josué Del Valle MD PhD Medical Oncologist/Knitting Machine Operator Medical Oncology 08/26/19 Dillon Calreed Dorado DO [address] [address] Environmental Analyst Internal Medicine 06/12/23 Halie Khan MD [address] [address] Developmental Mathematics Professor Critical Care Med 06/12/23 Wilfred Kinsey MD [address] [address] Consulting Physician Gastroenterology 03/02/24 documented as of this encounter
--- OUTSIDE RECORDS SUMMARY | 2024-11-22 10:46 | XMS_ITS | Encounter Summary ---
Author Organization [facility] Address [address] [facility] [address] [place] [address] Phone Care Team Providers Care Yarn Dyer Name Role Phone Josué Del Valle MD PhD Unavailable [phone] Kirt Lindsay DO Primary Care Provider [phone] Cal Carranza DO Unavailable Halie Khan MD Unavailable [phone] Wilfred Kinsey MD Unavailable Encounter Details Date Type Department Care Team (Late st Contact Info) Description 07/08/2024 Telephone [facility] Infectious Diseases [address] [place] [phone] Page Marsh Social History Tobacco Use Types Packs/Day Years Used Date Smoking Tobacco: Some Days Cigarettes 0.5 40.4 Started: 1985 Smokeless Tobacco: Never Comments:pt states tried to quit [facility] Utilities Answer Date Recorded In the [...] week 06/16/2024 How often do you attend hindu or mandaen serv ices? Never 06/16/2024 Do you belong [...] place to sleep or slept in a [place] (including now)? No 03/30/2024 Housing Stability Vital Sign Answer [place] Recorded In the last 12 months, was t here a time when you were not able to pay the mortgage or rent on time? No 06/16/2024 In the past 12 months, how m any times have you moved where you were living? 0 06/16/2024 At any time in the past 12 m [facility], were you homeless or living in a [place] [facility] [place] (including now)? No 06/16/2024 Personal Safety Answer Date Recorded Have you ever been in or are you currently in a harmful physical or emotional relationship or is someone making you feel afraid or unsafe? 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
--- OUTSIDE RECORDS SUMMARY | 2024-11-22 10:46 | XMS_ITS | Encounter Summary ---
Author Organization [facility] Healthcare Address [address] [place] [address] Care Team Providers Care Career Services Coordinator Name Role Phone Josué Del Valle MD PhD Unavailable [phone] Kirt Lindsay DO Primary Care Provider [phone] Cal Carranza DO Unavailable [phone] Halie Khan MD Unavailable [phone] Wilfred Kinsey MD Unavailable Reason for Referral * Home Health (Routine) - Closed Specialty Diagnoses / Procedures Referred By Controberta t Referred To Contact Home Health Services / Home Health and Hospice Diagnoses Mycobacterium avium infection (HCC) Francis Gordon MD [address] [place] [address] Phone: tel: fax: [facility] [address] [place] [address] Phone: tel: fax: Referral ID Status Reason Start Date Expiration Date V isits Requested Visits Authorized [id number] Closed Specialty Services Required 07/28/2024 08/27/2025 1 1 Question Answer [id number] Home Health and Infusion Primary disciplines requested: [facility] IV Catheter Maintenance IV Catheter Types: Non-Tunneled Central Line Number of Lumens: 2 IV Catheter Flush Care Instructions: Evaluate and manage the IV catheter to maintain patency IV Catheter Dressing Change Instructions: Evaluate, manage, and change the dressing weekly Infusion Services Infusion Therapy, IV Catheter Maintenance (Infusion), Labs (Infusion) Labs: CMP, CBC with Differential CBC frequency: Once a week - on Mondays CMP frequency: Once a week - on Mondays Date to Start Labs: 08/03/2024 Infusion Therapy: Antibiotic Therapy How many antibiotic therapies: 1 ABX Medication 1: amikacin ABX Dose 1: 700 mg ABX Route 1: IV ABX Frequency 1: once a day on Saturday, Saturday, Saturday ABX Therapy Duration 1: 6 weeks (07/24 - 09/04) Physician to follow patient's care (the person listed here will be responsible for signing ongoing orders): Other Comment: Martín Pinzon (infectious disease) Requested Start of Care Date: 24-48 hours I certify that, based on my findings, the following services are medically necessary skilled home health services: IV Catheter Maintenance I certify that, based on my findings, the following services are medically necessary skilled home infusion services: IV Catheter Maintenance (Infusion), Infusion Therapy, Labs (Infusion) I attest that I or another qualified licensed provider saw the patient 90 days prior to or 30 days post admission and this face to face encounter meets the necessary Home Health requirements. The face to face encounter occurred on (date): 07/28/2024 The encounter with the patient was in whole, or in part, for the following medical condition, which is the primary reason for home health care. (List medical condition): mycobacterium avium infection Clinical findings that support the need for home care: Medical condition requiring skilled assessment/education I certify that my clinical findings support patient's homebound status. Homebound criteria met because: Requires assistance of another to leave home safely Referral/ Patient Comments fax lab results to [phone] (address to Dr. Martín Nova, infectious disease) Reason for Visit * Auth/Cert Specialty Diagnoses / Procedures Referred By Contac t Referred To Contact Diagnoses pneumonia- MED POOL Procedures na Referral ID Status Reason Start Date Expiration Date Visits Re quested Visits Authorized [id number] 1 1 Encounter Details Date Type Department Care Team (Latest Contact Info) Description 07/23/2024 10:00 PM CDT - 08/02/2024 11:36 AM CDT Hospital Encounter [facility] [address] [place] [address] Brittny Escalera MD [address] [place] [address] Octavia Lemus MD [address] [place] [address] Lee Morales MD [address] [employer] [place] [address] Cruz Pederson MD [address] [place] [address] Wilbert Strickland MD [address] [place] [address] Chronic systolic congestive heart failure (CMS/HCC) (HCC) (Primary Dx); Mycobacterium avium infection (HCC) Discharge Disposition: Discharge to home, home health skilled care Social History Tobacco Use Types Packs/Day Years Used Date Smoking Tobacco: Some Days Cigarettes 0.5 40.4 Started: 1985 Smokeless Tobacco: Never Comments:pt states tried to quit; smoking 5 cigs/wk [facility] Utilities Answer Date Recorded In the past 12 months has th [employer], gas, oil, or water [employer] threatened to shut off services in your home? No 07/24/2024 Social Connection and Isolation Panel [NHANES] A nswer Date Recorded In a typical week, how many times do you talk on the phone with family, friends, or neighbors? Twice a week 07/24/2024 How often do you get together with friends or re latives? Once a week 07/24/2024 How often do you attend sabianist or mu-ism serv ices? Never 07/24/2024 Do you belong to any clubs o r organizations such as sabianist groups, unions, fraternal or athletic groups, or [...] in the past 12 m [facility], were you homeless or living [...] on file Legal Sex Male 10:48 AM [employer]. [employer] Gender Identity Not on file Sexual Orientation Not on file documented as of this encounter Last Filed Vital Signs Vital Sign Reading Time Taken Comments Blood Pressure 99/68 08/02/2024 8:16 AM CDT Pulse 69 08/02/2024 8:16 AM CDT Temperature 36.9 ??C (98.4 ??F) 08/02/2024 8:16 AM CD T Respiratory Rate 18 08/02/2024 5:50 AM CDT Oxygen Saturation 97% 08/02/2024 8:16 AM CDT Inhaled Oxygen Concentration - - Weight 57.1 kg (125 lb 14.4 oz) 08/01/2024 8:34 PM CDT Height 180.3 cm (5' 11 ) 07/23/2024 10: 25 PM CDT Body Mass Index 17.56 07/23/2024 10:25 PM CDT documented in this encounter Discharge Summaries * Francis Gordon MD - 07/31/2024 10:00 AM CDT Inpatient Discharge Summary BRIEF OVERVIEW Admitting Provider: Wilbert Strickland MD Discharge Provider: No att. 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 Strickland: Bri Jones is a 58 y.o. 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 for worsening SOB. He was last adm to [facility] 06/15. He was found to have a RUL cavitary lesion. Underwent BAL that was + for M avium and Stenotrophomonas. He was reported baseline 2L at that point and walk test prior to DCwithout requirement. He was treated with A combination of abx and ultimately 10d course of minocycline for the Steno. Dc with plans to follow up in ID clinic for treatment of non-TB mycobacterial infection. He was seen in ID clinic on 07/07 and started on Azithromycin and ethambutol with plans for Amikacin MWF x6 weeks and clofazimine when approved. He was admitted to [facility] 07/14-07/16 for acute pancreatitis tx with IVF and Prn pain meds. CT at that time with increase since march of nodular opacities and was prescribed a course of augmentin for possible superimposed PNA. Was seen in the ED on 07/19 at [facility] for worsening SOB and continued abdominal pain. Was treated for COPD exacerbation and dc with pred 20 BID x5 days. Current presentation originated with ED visit to [facility] in [place], [place] on 07/21. He presented for worsening SOB since the 07/19 ED visit. He noted an ongoing chronic, non-productive cough. No significant improvement with the steroid course. No fevers, edema, coughing/choking. Has been using 3L at night and 3L rest/5L exertion during the day. He has had continued abd pain in the last few days after being nearly resolved since the 07/14 admission. Denies recent alcohol use. Notes intermittent cigarette smoking. 1x N/V episode last week. Intermittent loose stools with the antibiotics, but had a more formed on today. In the [facility] ED was placed on bipap initially for increased WOB then later weaned to 3-6L. BP normotensive and had tachycardia to 120s. Lab workup with WBC 14.9 (ANC 14.3), hgb 9.2, plt 389. CRP 3.9 (nml <1). Lactate 3.1 -> 3.4. Normal T bili/AST/ALT. Lipase 286 (23-300). Flu/RSV/COVID negative. BSG 200->500. Scr wnl. Troponin 0.063 -> 0.069 -> 0.059. Pro BNP >30,000. Abg 7.375/52.4/133 on BiPAP. CXR with airspace opacities in upper lobes R>L with cavitation on R stable from 05/28/24 consistent with PNA. CTPE with no PE, multifocal PNA worsened from 05/28/24, and moderate emphysema. MAR of meds not in the OSH records, but per report was given solumedrol, mag, nebs, CTX, azithro, Vanc, and lasix. He was subsequently transferred to [facility] for further management. Hospital Course: MAC infection: Patient noted to have bilateral R>L cavitary lung consolidation in May 2024. Previous bronch 06/16/24 was positive for mycobacterium avium and Stenotrophomonas. Stenotrophomonas was previously treated with minocycline. Patient was started on ethambutol on azithromycin 07/07/24 by ID prior to admis [facility]. Patient presented this admission with complaints of shortness of breath. CT chest 07/24/24 showed similar appearing cavitary lesions c/f refractory infection. ID was consulted. Patient was started on IV amikacin as well as continued on azithro + ethambutol. Amikacin was adjusted to 700 mg basedon peak levels. EKG 07/27/24 monitoring showed Qtc 517 on amikacin + vori, which patient was taking for mold prophylaxis. Vori was switched to cresemba 07/29/24 given prolonged QT. Baseline audiology exam performed 07/27/24. ID recommended 6 weeks of IV amikacin. PICC line placed 07/29/24 for amikacin access OP. Patient received bedside teaching performed by nurses for PICC flushes. Patient will continue OP follow-up with ID. Patient was discharged on his home baseline 3L O2 requirement. Acute systolic heart failure: TTE 07/24/24 showed new depressed EF of 30% as part of dyspnea work-up. Cards was consulted. Patient was noted to have prior STEMI in Dec 2022 w/ PCI to RCA thought to be possible cause. Cardiology recommended medical management. Due to intermittent low BP coreg was switched to metoprolol. Losartan and aldactone were trialed but stopped due to intermittent low blood pressure and hyperkalemia. Cardiology recommended continuing plavix and xarelto for CAD. Patient was started on jardiance for GDMT (0$ copay) AML: S/p matched sib allo (D0 = 11/09/2009) w/ remission. C/b chronic GVHD eyes and lungs. Patient was continued on GVHD ppx w/ tacro and cellcept. As above, vori prophylaxis was switched to cresemba due to prolonged QT w/ vori + amikacin. History of PE: DVT and PE in 2012. Had IJ DVT 2017. Patient continued on xarelto at discharge. COPD: continue trelegy ellipta & PRN albuterol Diabetes: A1c 6.7%. Jardiance at discharge Active Issues Requiring Follow-up: -MAC -heart failure & CAD -post-transplant care Test Results Pending at Discharge: Pending Labs Order Current Status Phosphorus In process Miscellaneous Test Sendout Chemistry Preliminary result Operative Procedures Performed: none Pertinent Test Results: EXAMINATION: RADIOLOGY CONSULTATION ON OUTSIDE IMAGING STUDY STUDY INITIALLY PERFORMED: 07/21/2024 at unknown. TYPE OF STUDY: Multiple CTA images of the chest with PE protocol are provided at the time of this interpretation. CONTRAST ROUTE: Contrast was administered via the intravenous route. The protocol was adequate to address the clinical question. The outside final report was not available at the time of this second opinion interpretation. 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 COMPARISON: CT chest with contrast dated 07/14/2024. FINDINGS: No central, segmental, or subsegmental pulmonary embolism. Mild coronary artery calcifications. There is mucous plugging and debris throughout the bilateral tracheobronchial trees, likely aspiration. There is a large cavity in the right lung apex with internal frond-like contents, not significantly changed. There is a general background of emphysema throughout the lungs. There are additional peribronchial vascular opacities, some of which are slightly improved from CT dated 07/14/2024, for instance in the medial right upper lobe, but remain persistent. There are additional irregular nodules throughout the lungs, which are predominantly new when compared with the 05/28/2024 exam. There are no new pulmonary nodule seen. No pleural effusion or pneumothorax. No acute CT findings in the imaged upper abdomen. Severe atherosclerosis of the upper abdominal aorta. No suspicious osseous lesions. Impression: 1. 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 These findings are not significant changed from CT dated 07/14/2024, but remain worse than CT dated 05/28/2024. 2. Lower lobe mucus plugging with nodularity suspicious for superimposed aspiration pneumonia, which is new from CT dated 05/28/2024. Discharge Details Physical Exam at Discharge: Discharge Condition: fair Pulse: 69 Resp: 18 BP: 99/68 Temp: 36.9 ??C (98.4 ??F) Weight: 57.1 kg (125 lb 14.4 oz) Pertinent Exam Findings at Discharge: see daily progress note Discharge Disposition: Discharge to home, home health skilled care Code Status at Discharge: full code Discharge Instructions: Activity Instructions Discharge activity: Resume normal activity Discharge activity: Resume normal activity Diet Instructions Adult Discharge Diet Diet Type: Return to previous diet Adult Discharge Diet Diet Type: Return to previous diet Malnutrition is an imbalance between the nutrients your body needs to function and the nutrients itgets. Nutrients include protein, fat, carbohydrates, vitamins, and minerals. The following recommendations can help you take in more calories every day to stop the weight loss and restore your appetite. Calorie-Boosting Tips: Eat 3 meals and 3 snacks a daily. Drink only small amounts of liquids at meals, which can make you feel full faster. Drink supplements or shakes if you do not eat at least half of your meal or with a snack between meals. Consider drinking nutrition supplements, such as Ensure or Boost to provide additional calories andprotein. Drink supplements or shakes with a snack between meals instead of at meals. Set up schedule of times to eat or set timer for reminders to eat. Eat largest meal when appetite is strongest. Increase the portion of milk to drink and change to whole milk if able for more calories. Eat small meals more frequently throughout the day. Have favorite snacks available at all times and keep visual for reminders to eat. Make the meal experience pleasant--for example, eat with others, increase aesthetic appeal. Add butter or margarine to soups, veggies, potatoes, cooked cereal, pasta, bread, and crackers. Spread cream cheese on bread, rolls, bagels, or use it as a fruit dip. Add raisins, dates, or chopped nuts to hot cereal and desserts. Top meat, vegetables, or bread with gravy. Mix fruit, nuts, granola, honey, or dry cereal with yogurt. Protein-Boosting Tips: Add dry milk powder to milk, cereal, soup, gravy, casseroles, and desserts. Use milk to replace water in recipes. Add meat to soups, casseroles, pasta dishes, or vegetables. Mix cheese in sauces, soups, or vegetables. Melt cheese over bread, vegetables, potatoes, on sandwiches. Add shredded cheese to soups and salads. Eat peanut butter on crackers, bread, toast, waffles, or celery sticks. May also add to milkshakes or desserts. Add nuts to desserts or eat as snacks. Have yogurt and/or cottage cheese as a snack or paired with fruit. Consider drinking nutrition supplements, such as Ensure or Boost to provide additional calories andprotein. Mix protein powder, nut butter, almond/nut milk, non-fat dry milk, or Marshallese yogurt to shakes and smoothies. Eat a well-balanced diet. A well-balanced diet helps you get the vitamins and minerals that your body needs. Include grains, fruit and vegetables, dairy and protein servings at every meal. Your health care provider may prescribe a multivitamin/mineral supplement if nutritional deficiencies are suspected. If so, make sure you take them as prescribed. Consider drinking an oral nutrition supplement such as Ensure, Glucerna, or Boost 1-2 times daily as able to increase calories and protein intake. Oral nutrition supplements can be bought online, at grocery stores, and pharmacies. Find support. If you cannot buy or prepare the right kinds of foods, talk to your healthcare provider. Ask for information about community programs that can help you. [facility] a Registered Dietitian. Other Instructions Ambulatory referral to Home Health Service Line: Home Health and Infusion Primary disciplines requested: [facility]: IV Catheter Maintenance IV Catheter Types: Non-Tunneled Central Line Number of Lumens: 2 IV Catheter Flush Care Instructions: Evaluate and manage the IV catheter to maintain patency IV Catheter Dressing Change Instructions: Evaluate, manage, and change the dressing weekly Infusion Services: Infusion Therapy IV Catheter Maintenance (Infusion) Labs (Infusion) Labs: CMP CBC with Differential CBC frequency: Once a week Comment - on Mondays CMP frequency: Once a week Comment - on Mondays Date to Start Labs: 08/03/2024 Infusion Therapy: Antibiotic Therapy How many antibiotic therapies: 1 ABX Medication 1: amikacin ABX Dose 1: 700 mg ABX Route 1: IV ABX Frequency 1: once a day on Saturday, Saturday, Saturday ABX Therapy Duration 1: 6 weeks (07/24 - 09/04) Physician to follow patient's care (the person listed here will be responsible for signing ongoing orders): Other Comment: Martín Pinzon (infectious disease) Requested Start of Care Date: 24-48 hours I certify that, based on my findings, the following services are medically necessary skilled home health services: IV Catheter Maintenance I certify that, based on my findings, the following services are medically necessary skilled home infusion services: IV Catheter Maintenance (Infusion) Infusion Therapy Labs (Infusion) I attest that I or another qualified licensed provider saw the patient 90 days prior to or 30 days post admission and this face to face encounter meets the necessary Home Health requirements. The face to face encounter occurred on (date): 07/28/2024 The encounter with the patient was in whole, or in part, for the following medical condition, whichis the primary reason for home health care. (List medical condition): mycobacterium avium infection Clinical findings that support the need for home care: Medical condition requiring skilled assessment/education I certify that my clinical findings support patient's homebound status. Homebound criteria met because: Requires assistance of another to leave home safely Referral/ Patient Comments: fax lab results to [phone] (address to Dr. Martín Nova, infectious disease) Call provider for: Temperature -Temperature greater than 101 degrees F Call provider for: Temperature -Temperature greater than 101 degrees F Call provider for: difficulty breathing or chest pain Call provider for: difficulty breathing or chest pain Call provider for: extreme fatigue Call provider for: extreme fatigue Call provider for: hives Call provider for: hives Call provider for: persistent dizziness or light-headedness Call provider for: persistent dizziness or light-headedness Call provider for: persistent nausea or vomiting Call provider for: persistent nausea or vomiting Call provider for: redness, tenderness, or signs of infection (pain, swelling, redness, odor or green/yellow discharge around incision site) Call provider for: redness, tenderness, or signs of infection (pain, swelling, redness, odor or green/yellow discharge around incision site) Call provider for: severe uncontrolled pain Call provider for: severe uncontrolled pain Call provider for: headache, visual disturbances, weakness and speech changes Call provider for: headache, visual disturbances, weakness and speech changes [facility] Home Infusion will supply IV medication and supplies, if any questions [phone] [facility] will provide residential. If you are not contacted by your nurse within 24 Hours from your hospital discharge, please call [phone] Discharge Medications: Current Medications TAKE these medications acyclovir 400 mg tablet Take 1 tablet (400 mg total) by mouth 3 (three) times a day For: Prophylaxis, Medical Commonly known as: ZOVIRAX albuterol 2.5 mg /3 mL (0.083 %) nebulizer solution Take 3 mL (2.5 mg total) by nebulization every 6 (six) hours as needed for wheezing or shortness of breath amikacin IV syringe 25 mg/mL Infuse 28 mL (700 mg total) into a venous catheter 3 (three) times a week For: Upper Respiratory/HEENT Infection atorvastatin 40 mg tablet TAKE ONE TABLET (40 MG) BY MOUTH DAILY AT 5 PM LAST REFILL UNTIL SEEN Commonly known as: LIPITOR azithromycin 500 mg tablet Take 1 tablet (500 mg total) by mouth daily for 30 doses For: an infection by Mycobacteria Commonly known as: ZITHROMAX cholecalciferol 25 mcg (1,000 unit) tablet Take 2 tablets (2,000 Units total) by mouth every morning Commonly known as: VITAMIN D-3 clopidogreL 75 mg tablet Take 1 tablet (75 mg total) by mouth daily Commonly known as: PLAVIX cyanocobalamin 1,000 mcg tablet Take 1 tablet (1,000 mcg total) by mouth every morning Commonly known as: Vitamin B-12 empagliflozin 10 mg tablet Take 1 tablet (10 mg total) by mouth daily For: heart failure associated with type 2 diabetes mellitus Commonly known as: JARDIANCE ethambutoL 400 mg tablet Take 3 tablets (1,200 mg total) by mouth daily For: an infection by Mycobacteria Commonly known as: MYAMBUTOL FreeStyle Evaristo 2 [facility] Use to test blood glucose continuously Generic drug: flash glucose scanning reader FreeStyle Evaristo 2 Sensor kit Change sensor every 14 days Generic drug: flash glucose sensor gabapentin 300 mg capsule TAKE ONE CAPSULE BY MOUTH FOUR TIMES DAILY @ [id number] Commonly known as: NEURONTIN guaiFENesin ER 600 mg 12 hr tablet Take 1 tablet (600 mg total) by mouth 2 (two) times a day Commonly known as: MUCINEX heparin 10 unit/mL syringe Administer 5 mL (50 Units total) into catheter daily For each lumen For: prevent clot from blocking an intravenous catheter isavuconazonium 186 mg capsule Take 2 capsules (372 mg total) by mouth daily For: Prophylaxis, Medical Commonly known as: CRESEMBA metoprolol XL 25 mg extended release tablet Take 0.5 tablets (12.5 mg total) by mouth daily Commonly known as: TOPROL-XL montelukast 10 mg tablet Take 1 tablet (10 mg total) by mouth nightly Commonly known as: SINGULAIR mycophenolate mofetil 500 mg tablet Take 2 tablets (1,000 mg total) by mouth 2 (two) times a day Commonly known as: CELLCEPT nicotine [address] 1 patch on the skin daily Commonly known as: NICODERM CQ omega-3 fatty acids 1 gram capsule Take 1 capsule (1 g total) by mouth daily Commonly known as: LOVAZA ondansetron ODT 4 mg disintegrating tablet Take 1 tablet (4 mg total) by mouth every 8 (eight) hours as needed for nausea or vomiting Commonly known as: ZOFRAN-ODT oxyCODONE 5 mg immediate release tablet Take 1 tablet (5 mg total) by mouth every 4 (four) hours as needed for pain for up to 5 days For: pain Commonly known as: ROXICODONE oxygen Administer 2 L/min into each nostril nightly Nightly and PRN pantoprazole DR 40 mg EC tablet TAKE 1 TABLET(40 MG) BY MOUTH TWICE DAILY Commonly known as: PROTONIX sodium chloride 0.9% injection Administer 5-10 mL into catheter daily For each lumen sodium chloride 3 % nebulizer solution Take 4 mL by nebulization 2 (two) times a day Use albuterol in nebulizer first, then saline, then Aerobika For: airway clearanc tacrolimus 0.5 mg immediate-release capsule TAKE ONE CAPSULE BY MOUTH EVERY OTHER DAY Trelegy Ellipta 200-62.5-25 mcg inhaler Inhale 1 puff daily Generic drug: tgofbjouitb-xanpuwkkf-lihqezhd Xarelto 20 mg tablet TAKE ONE TABLET BY MOUTH DAILY AT 9 AM Generic drug: rivaroxaban Outpatient Follow-Up: Future Appointments Date Time Provider Department Center 08/12/2024 10:30 AM LAB, [facility] ON[facility] 7 ONC LAB CAM7 [facility] ONC LAB 08/12/2024 11:40 AM Narcisa Kilgore NP BMT CAM 7 BMT 08/18/2024 9:00 AM Kimberly Frazier NP ID TABEX 100 [facility] Inf Dis 08/24/2024 1:45 PM Brenda Callahan MD MG PLM 200 [facility] Specialty Contact Information for Follow-ups [facility] (All Locations) Next Steps: Follow up Comments: Heart failure clinic Questions: Please select the performing region: [facility] (All Locations) Is this referral for the Valve Clinic?: No # of visits: 1 Referral Status: Do Not Schedule [facility] Home Care Services Specialty: Home Health and Hospice [id number] [facility] [id number] Next Steps: Follow up Questions: Service Line: Home Health and Infusion Primary disciplines requested: [facility] Services: IV Catheter Maintenance IV Catheter Types: Non-Tunneled Central Line Number of Lumens: 2 IV Catheter Flush Care Instructions: Evaluate and manage the IV catheter to maintain patency IV Catheter Dressing Change Instructions: Evaluate, manage, and change the dressing weekly Infusion Services: Infusion Therapy IV Catheter Maintenance (Infusion) Labs (Infusion) Labs: CMP CBC with Differential CBC frequency: Once a week Comment - on Mondays CMP frequency: Once a week Comment - on Mondays Date to Start Labs: 08/03/2024 Infusion Therapy: Antibiotic Therapy How many antibiotic therapies: 1 ABX Medication 1: amikacin ABX Dose 1: 700 mg ABX Route 1: IV ABX Frequency 1: once a day on Saturday, Saturday, Saturday ABX Therapy Duration 1: 6 weeks (07/24 - 09/04) Physician to follow patient's care (the person listed here will be responsible for signing ongoing orders): Other Comment: Martín Pinzon (infectious disease) Requested Start of Care Date: 24-48 hours I certify that, based on my findings, the following services are medically necessary skilled home health services: IV Catheter Maintenance I certify that, based on my findings, the following services are medically necessary skilled home infusion services: IV Catheter Maintenance (Infusion) Infusion Therapy Labs (Infusion) I attest that I or another qualified licensed provider saw the patient 90 days prior to or 30 days post admission and this face to face encounter meets the necessary Home Health requirements. The face to face encounter occurred on (date): 07/28/2024 The encounter with the patient was in whole, or in part, for the following medical condition, whichis the primary reason for home health care. (List medical condition): mycobacterium avium infection Clinical findings that support the need for home care: Medical condition requiring skilled assessment/education I certify that my clinical findings support patient's homebound status. Homebound criteria met because: Requires assistance of another to leave home safely Referral/ Patient Comments: fax lab results to [phone] (address to Dr. Martín Nova, infectious disease) Referral Status: Pending Authorization Kirt Lindsay DO Specialty: Internal Medicine Relationship: PCP - General [address] [address] [place] [address] Next Steps: Follow up Home O2: documented in this encounter Discharge Instructions * Discharge Instr - Diet* Silva Dominguez, RD - 07/24/2024 12:32 PM CDT Malnutrition is an imbalance between the nutrients your body needs to function and the nutrients itgets. Nutrients include protein, fat, carbohydrates, vitamins, and minerals. The following recommendations can help you take in more calories every day to stop the weight loss and restore your appetite. Calorie-Boosting Tips: Eat 3 meals and 3 snacks a daily. Drink only small amounts of liquids at meals, which can make you feel full faster. Drink supplements or shakes if you do not eat at least half of your meal or with a snack between meals. Consider drinking nutrition supplements, such as Ensure or Boost to provide additional calories andprotein. Drink supplements or shakes with a snack between meals instead of at meals. Set up schedule of times to eat or set timer for reminders to eat. Eat largest meal when appetite is strongest. Increase the portion of milk to drink and change to whole milk if able for more calories. Eat small meals more frequently throughout the day. Have favorite snacks available at all times and keep visual for reminders to eat. Make the meal experience pleasant--for example, eat with others, increase aesthetic appeal. Add butter or margarine to soups, veggies, potatoes, cooked cereal, pasta, bread, and crackers. Spread cream cheese on bread, rolls, bagels, or use it as a fruit dip. Add raisins, dates, or chopped nuts to hot cereal and desserts. Top meat, vegetables, or bread with gravy. Mix fruit, nuts, granola, honey, or dry cereal with yogurt. Protein-Boosting Tips: Add dry milk powder to milk, cereal, soup, gravy, casseroles, and desserts. Use milk to replace water in recipes. Add meat to soups, casseroles, pasta dishes, or vegetables. Mix cheese in sauces, soups, or vegetables. Melt cheese over bread, vegetables, potatoes, on sandwiches. Add shredded cheese to soups and salads. Eat peanut butter on crackers, bread, toast, waffles, or celery sticks. May also add to milkshakes or desserts. Add nuts to desserts or eat as snacks. Have yogurt and/or cottage cheese as a snack or paired with fruit. Consider drinking nutrition supplements, such as Ensure or Boost to provide additional calories andprotein. Mix protein powder, nut butter, almond/nut milk, non-fat dry milk, or Marshallese yogurt to shakes and smoothies. Eat a well-balanced diet. A well-balanced diet helps you get the vitamins and minerals that your body needs. Include grains, fruit and vegetables, dairy and protein servings at every meal. Your health care provider may prescribe a multivitamin/mineral supplement if nutritional deficiencies are suspected. If so, make sure you take them as prescribed. Consider drinking an oral nutrition supplement such as Ensure, Glucerna, or Boost 1-2 times daily as able to increase calories and protein intake. Oral nutrition supplements can be bought online, at grocery stores, and pharmacies. Find support. If you cannot buy or prepare the right kinds of foods, talk to your healthcare provider. Ask for information about community programs that can help you. [facility] ask about seeing a Registered Dietitian. * Discharge Instr - Other Orders* Brittany Lagos RN - 07/29/2024 3:45 PM CDT [facility] Home Infusion will supply IV medication and supplies, if any questions [phone] [facility] will provide residential. If you are not contacted by your nurse within 24 Hours from your hospital discharge, please call [phone] documented in this encounter Medications at Time [...] flash glucose scanning reader (FreeStyle Evaristo 2 [place] [facility] [place] test blood glucose continuously 1 each 1 03/17/20 23 flash glucose sensor (FreeStyle Evaristo 2 Sensor) kitIndications:Type 2 diabetes mellitus with hyperosmolarity 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, with long-term current use of insulin (HCC) Change sensor every 14 days 2 kit 02/10/20 24 guaiFENesin ER (MUCINEX) 600 mg 12 hr tablet Take 1 tablet (600 mg total) by mouth 2 (two) times a day metoprolol XL (TOPROL-XL) 25 mg extended release tablet Take 0.5 tablets (12.5 mg total) by mouth daily 15 tablet 07/31/20 24 omega-3 fatty acids (LOVAZA) 1 gram capsule Take 1 capsule (1 g total) by mouth daily 02/10/20 21 oxygen Administer 2 L/min into each nostril nightly Nightly and PRN tacrolimus 0.5 mg immediate-release capsuleIndications:Acute myeloblastic leukemia, in remission (HCC) TAKE ONE CAPSULE BY MOUTH EVERY OTHER DAY 15 capsule 07/03/20 24 Xarelto 20 mg tabletIndications:Acute myeloblastic [...] mouth daily 60 capsule 08/02/20 24 024 oxyCODONE (ROXICODONE) 5 mg immediate release tabletIndications:Pain Take 1 tablet (5 mg total) by mouth every 4 (four) hours as needed for pain for up to 5 days 30 tablet 08/02/20 24 024 sodium chloride 3 % nebulizer solutionIndications:airw ay clearanc Take 4 mL by nebulization 2 (two) times a day Use albuterol in nebulizer first, then saline, then Aerobika 240 mL 3 07/07/20 24 024 amikacin IV syringe 25 mg/mLIndications:Upper Respiratory/HEENT Infection Infuse 28 mL (700 mg total) into a venous catheter 3 (three) times a week 07/31/20 24 024 atorvastatin (LIPITOR) 40 mg tabletIndications:AML (acute myeloid leukemia) in remission ([facility]),Type 2 diabetes mellitus with hyperglycemia, with long-term current use of insulin ([facility]),Bxsyv-ijcrre-edwh disease (HCC),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[facility]),Pure hypercholesterolemia TAKE ONE TABLET (40 MG) BY MOUTH DAILY AT 5 PM LAST REFILL UNTIL SEEN 30 tablet 07/30/20 24 024 hsbugoelmvd-jckfugdux-bq lanter (Trelegy Ellipta) 200-62.5-25 mcg inhaler Inhale 1 puff daily 024 gabapentin (NEURONTIN) 300 mg capsuleIndications:Acute myeloblastic leukemia, in remission (HCC) TAKE ONE CAPSULE BY MOUTH FOUR TIMES DAILY @ [id number] 120 capsule 11 05/13/20 24 025 heparin [...] daily For each lumen 200 mL 08/02/20 024 documented as of this encounter Ordered Prescriptions Prescription Sig Dispense Quantity Refills Last Filled Start Date End Date clopidogreL (PLAVIX) 75 mg tablet Take 1 tablet (75 mg total) by mouth daily 30 tablet 08/02/2024 metoprolol XL (TOPROL-XL) 25 mg extended release tablet Take 0.5 tablets (12.5 mg total) by mouth daily 15 tablet 07/31/2024 empagliflozin (JARDIANCE) 10 mg tabletIndications: heart failure associated with type 2 diabetes mellitus Take 1 tablet (10 mg total) by mouth daily 30 tablet 07/31/2024 acyclovir (ZOVIRAX) 400 mg tabletIndications: Prophylaxis, Medical Take 1 tablet (400 mg total) by mouth 3 (three) times a day 07/31/2024 azithromycin (ZITHROMAX) 500 mg tabletIndications: Mycobacteriosis Take 1 tablet (500 mg total) by mouth daily for 30 doses 30 tablet 08/02/2024 4 ethambutoL (MYAMBUTOL) 400 mg tabletIndications: Mycobacteriosis Take 3 tablets (1,200 mg total) by mouth daily 90 tablet 08/02/2024 4 oxyCODONE (ROXICODONE) 5 mg immediate release tabletIndications: Pain Take 1 tablet (5 mg total) by mouth every 4 (four) hours as needed for pain for up to 5 days 30 tablet 08/02/2024 4 heparin 10 unit/mL syringeIndications :Maintain Patency of Indwelling Vascular Catheter Administer 5 mL (50 Units total) into catheter daily For each lumen 200 mL 08/02/2024 4 sodium chloride 0.9% injection Administer 5-10 mL into catheter daily For each lumen 200 mL 08/02/2024 4 isavuconazonium (CRESEMBA) 186 mg capsuleIndications :Prophylaxis, Medical Take 2 capsules (372 mg total) by mouth daily 60 capsule 08/02/2024 4 heparin 10 unit/mL syringeIndications :Maintain Patency of Indwelling Vascular Catheter Administer 5 mL (50 Units total) into catheter daily For each lumen 200 mL 07/31/2024 4 sodium chloride 0.9% injection Administer 5-10 mL into catheter daily For each lumen 200 mL 07/31/2024 4 metoprolol tartrate (LOPRESSOR) 25 mg immediate release tablet Take 0.25 tablets (6.25 mg total) by mouth 2 (two) times a day 15 tablet 07/31/2024 4 isavuconazonium (CRESEMBA) 186 mg capsuleIndications :Prophylaxis, Medical Take 2 capsules (372 mg total) by mouth daily 60 capsule 08/01/2024 4 clopidogreL (PLAVIX) 75 mg tablet Take 1 tablet (75 mg total) by mouth daily 30 tablet 08/01/2024 4 amikacin IV syringe 25 mg/mLIndications:U pper Respiratory/HEENT Infection Infuse 28 mL (700 mg total) into a venous catheter 3 (three) times a week 07/31/2024 4 ethambutoL (MYAMBUTOL) 400 mg tabletIndications: Mycobacteriosis Take 3 tablets (1,200 mg total) by mouth daily 07/31/2024 4 azithromycin (ZITHROMAX) 500 mg tabletIndications: Mycobacteriosis Take 1 tablet (500 mg total) by mouth daily for 30 doses 30 tablet 08/01/2024 4 empagliflozin (JARDIANCE) 10 mg tabletIndications: heart failure associated with type 2 diabetes mellitus Take 1 tablet (10 mg total) by mouth daily 30 tablet 07/30/2024 4 dapagliflozin propanediol (Farxiga) 5 mg tabletIndications: heart failure associated with type 2 diabetes mellitus Take 2 tablets (10 mg total) by mouth daily 60 tablet 07/30/2024 4 isavuconazonium (CRESEMBA) 186 mg capsuleIndications :Prophylaxis, Medical Take 2 capsules (372 mg total) by mouth daily 60 capsule 07/29/2024 4 dapagliflozin propanediol (Farxiga) 5 mg tabletIndications: heart failure associated with type 2 diabetes mellitus Take 2 tablets (10 mg total) by mouth daily 60 tablet 07/28/2024 4 empagliflozin (JARDIANCE) 10 mg tabletIndications: heart failure associated with type 2 diabetes mellitus Take 1 tablet (10 mg total) by mouth daily 30 tablet 07/28/2024 4 documented in this encounter Discharge Disposition Disposition Code Departure Means Destination Comment s Discharge to home, home health skilled care documented in this encounter Progress Notes * Francis Gordon MD - 08/02/2024 11:36 AM CDT Hospitalist Consult Daily Progress Note as requested by BMT Physician Division of Hospital Medicine Name: Bri Jones : 1965 Today's Date: August 02, 2024 Age: 58 y.o. male Admission: 07/23/2024 Bed: [id number] LOS: 10 days BMT Day: Subjective Chief complaint: Patient states pain is controlled and dyspnea feels unchanged. We discussed that home infusion is set up to deliver amikacin tomorrow and that it could take significant time for symptoms to improve. Roommate Lissy was present in room this morning. Interval History No acute events overnight Objective Scheduled Meds PRN Meds Infusions No current facility-administered medications for this encounter. Vitals Most Recent Vitals: T 36.9 ??C (98.4 ??F), HR 69, BP 99/68, RR 18, SpO2 97 %. 24hr Min/Max: Temp Min: 36.7 ??C (98.1 ??F) Max: 37 ??C (98.6 ??F) Pulse Min: 69 Max: 88 BP Min: 99/68 Max: 117/80 Resp Min: 18 Max: 18 SpO2 Min: 95 % Max: 100 % Intake/Output Summary (Last 24 hours) at 08/02/2024 1718 Last data filed at 08/02/2024 0550 Gross per 24 hour Intake 250 ml Output 450 ml Net -200 ml ICE Score: No data found. Baseline ICE Score: CRS and ICANS Grading: No data found. Physical Exam Vitals reviewed. Constitutional: General: He is not in acute distress. Appearance: Normal appearance. HENT: Head: Normocephalic. Mouth/Throat: Mouth: Mucous membranes are moist. Eyes: General: No scleral icterus. Extraocular Movements: Extraocular movements intact. Conjunctiva/sclera: Conjunctivae normal. Cardiovascular: Rate and Rhythm: Normal rate and regular rhythm. Pulses: Normal pulses. Heart sounds: Normal heart sounds. Pulmonary: Effort: Pulmonary effort is normal. Comments: Coarse breath sound Abdominal: General: Abdomen is flat. There is no distension. Palpations: Abdomen is soft. Tenderness: There is no abdominal tenderness. Musculoskeletal: Right lower leg: No edema. Left lower leg: No edema. Skin: General: Skin is warm and dry. Neurological: General: No focal deficit present. Mental Status: He is alert and oriented to person, place, and time. Mental status is at baseline. Psychiatric: Mood and Affect: Mood normal. Behavior: Behavior normal. Judgment: Judgment normal. Lines, Drains, Airways PICC Double Lumen 07/29/24 Non-tunneled Power #1 Red, Right Basilic;Upper arm (Active) Labs/Diagnostic Review CBC: Recent Labs Lab Units 08/02/24 0126 WBC K/cumm 11.0* HEMOGLOBIN g/dL 9.3* HEMATOCRIT % 28.3* MCV fL 102.5* MCH pg 33.7* MCHC g/dL 32.9 RDW CV % 20.6* RDWSD fL 74.6* MPV fL 10.7 NEUTROS ABS K/cumm 6.6* LYMPHS PCT % 19.4 CMP: Recent Labs Lab Units 08/02/24 0802 08/02/24 0549 08/02/24 0126 SODIUM mmol/L -- -- 133* POTASSIUM PLASMA mmol/L -- -- 4.6 CO2 mmol/L -- -- 34* BUN SERUM mg/dL -- -- 24 GLUCOSE mg/dL -- -- 234* POC GLUCOSE MONITOR mg/dL 200* < > -- CREATININE mg/dL -- -- 0.82 CALCIUM mg/dL -- -- 8.8 CHLORIDE mmol/L -- -- 95* ALBUMIN g/dL -- -- 3.0* AST Units/L -- -- 43 ALT Units/L -- -- 28 ALK PHOS Units/L -- -- 178* BILIRUBIN TOTAL mg/dL -- -- <0.2 TOTAL PROTEIN g/dL -- -- 6.5 ANIONGAP mmol/L -- -- 4 < > = values in this interval not displayed. LDH: INR - Uric Acid:- Tacrolimus level:- Sirolimus level: - Cyclosporine level: - (Labs above are the most recent result obtained in the last 24 hours unless otherwise specified. For additional labs/trends, see Epic.) I have reviewed the laboratory results. Imaging Review No results found. Assessment/Plan MAC infection: Noted to have bilateral R>L cavitary lung consolidation in May 2024. Bronch 06/16/24 was positive for mycobacterium avium and Stenotrophomonas. Stenotrophomonas was treated with minocycline. Patient started on ethambutol on azithromycin 07/07/24. -CT chest 07/24/24 showed similar appearing cavitary lesions c/f refractory infection -ID consulted. Continue amikacin, azithro, ethambutol. Amikacin adjusted to 700 mg based on peak levels. -EKG 07/27/24 showed Qtc 517 on amikacin + vori. Vori was switched to cresemba 07/29/24 -baseline audiology exam performed 07/27/24 -PICC placed 07/29/24 for amikacin access OP -bedside teaching performed by nurses for PICC flushes Hypoxemia: -secondary to MAC infection -patient is on baseline 3L O2 Acute systolic heart failure: new depressed EF of 30% seen on TTE 07/24/24 -Cards consulted. Patient noted to have prior STEMI in Dec 2022 w/ PCI to RCA thought to be possible cause. Recommended for medical management -coreg switched to metop due to borderline low BP -losartan & aldactone held for hyperkalemia & borderline low BP -jardiance prescribed at discharge for GDMT w/ 0$ co-pay -continue plavix for history of RCA STEMI AML: S/p matched sib allo (D0 = 11/09/2009) w/ remission. C/b chronic GVHD eyes and lungs. -GVHD ppx: tacro every other day, mycophenolate -OI px: cresemba (prolonged QT on vori + amikacin), acyclovir History of PE: DVT and PE in 2012. Had IJ DVT 2017 -resume xarelto 08/02 COPD: -continue trelegy ellipta & PRN duonebs Diabetes: -A1c 6.7%. Jardiance at discharge Hyponatremia Code status : Prior Diet : Adult Discharge Diet Adult Discharge Diet PT/OT Dispo Rec : PT Recommendation/Plan: Home Health PT, Home with intermittent assist / OT Recommendation: (S) Home with intermittent assist Supplementary Attestation Today, I am treating the patient for MAC which is in severe exacerbation, progression, or experiencing treatment side effects as evidenced by CT scan, as described in the note. Independently interpreted CBC which shows stable anemia. Discussed management of MAC with ID & Dr. Pederson. The patient is being intensively monitored for drug toxicity from ethambutol & amikacin by checking drug levels. Francis Gordon MD * Cruz Pederson MD - 08/01/2024 9:06 PM CDT BMT Progress Note BMT Day: Chief Complaint: Patient is a 58 y.o. male with chief complaint of worsening SOB. Subjective Patient is now on 3L and feels close to baseline. Patient asking to go home tomorrow. Otherwise stable. Active Treatment & Therapy Plans for Bri Jones Robert A does not have any active plans of the following types: Oncology Chemotherapy Treatment, Oncology Treatment (2), Oncology Treatment (3), Oncology Supportive Care, Specialty InfusionTreatment, Blood Products, BMT, Hematology Allergies Allergen Reactions Adhesive Redness burn Current Facility-Administered Medications: acetaminophen (TYLENOL) tablet 650 mg, 650 mg, oral, Q4H PRN, Wilbert Strickland MD acyclovir (ZOVIRAX) tablet 400 mg, 400 mg, oral, TID, Francis Gordon MD, 400 mg at 08/01/24 1530 amikacin (AMIKIN) 700 mg in sodium chloride 0.9% 28 mL (25 mg/mL) IV syringe, 700 mg, intravenous, Once per day on Saturday, Francis Gordon MD, Stopped at 07/31/24 1000 ascorbic acid (VITAMIN C) tablet 500 mg, 500 mg, oral, Daily, Wilbert Strickland MD, 500 mg at 08/01/24826 atorvastatin (LIPITOR) tablet 40 mg, 40 mg, oral, Daily, Wilbert Strickland MD, 40 mg at 08/01/24826 azithromycin (ZITHROMAX) tablet 500 mg, 500 mg, oral, Daily, Caroline Marai PA, 500 mg at 08/01/24826 cholecalciferol (VITAMIN D-3) capsule 2,000 Units, 2,000 Units, oral, DENNIS, Wilbert Strickland MD, 2,000 Units at 08/01/24826 clopidogreL (PLAVIX) tablet 75 mg, 75 mg, oral, Daily, Francis Gordon MD, 75 mg at 08/01/24827 cyanocobalamin (Vitamin B-12) tablet 1,000 mcg, 1,000 mcg, oral, DENNIS, Wilbert Strickland MD, 1,000 mcg at 08/01/24825 dextrose gel in packet 15 g, 15 g, oral, Q15 Min PRN OR dextrose (D10W) 10% bolus 250 mL, 250 mL, intravenous, Q15 Min PRN, Wilbert Strickland MD ethambutoL (MYAMBUTOL) tablet 1,200 mg, 1,200 mg, oral, Daily, Wilbert Strickland MD, 1,200 mg at 08/01/24826 frqibwhnwgp-iqfqvalty-qbehckha (TRELEGY ELLIPTA) 200-62.5-25 mcg inhaler 1 puff, 1 puff, inhalation, Daily, Octavia Lemus MD, 1 puff at 08/01/24827 gabapentin (NEURONTIN) capsule 400 mg, 400 mg, oral, TID, Francis Gordon MD, 400 mg at 08/01/24 152 glucagon injection 1 mg, 1 mg, intramuscular, Q30 Min PRN, Wilbert Strickland MD guaiFENesin ER (MUCINEX) extended release tablet 600 mg, 600 mg, oral, BID, Wilbert Strickland MD, 600 mg at 08/01/24 0828 heparin 10 unit/mL flush 50 Units, 5 mL, intra-catheter, Q12H ROSA MARIA, Francis Gordon MD, 50 Units at 07/31/242111 HYDROmorphone (DILAUDID) injection 0.5 mg, 0.5 mg, intravenous, Q4H PRN, Wilbert Strickland MD, 0.5 mg at 07/24/24 0411 insulin glargine (LANTUS, SEMGLEE) 100 unit/mL injection 9 Units, 0.15 Units/kg, subcutaneous, Nightly, Stephani Reddy MD, 9 Units at 07/31/242110 insulin lispro (HumaLOG, ADMELOG) 100 unit/mL injection 0-4 Units, 0-4 Units, subcutaneous, Nightly, Stephani Reddy MD, 1 Units at 07/30/242155 insulin lispro (HumaLOG, ADMELOG) 100 unit/mL injection 0-5 Units, 0-5 Units, subcutaneous, TID with meals, Stephani Reddy MD, 2 Units at 08/01/241714 insulin lispro (HumaLOG, ADMELOG) 100 unit/mL injection 3 Units, 0.05 Units/kg, subcutaneous, TID with meals, Stephani Reddy MD, 3 Units at 08/01/24 171 ipratropium-albuteroL (DUO-NEB) 0.5-2.5 mg/3 mL nebulizer solution 3 mL, 3 mL, nebulization, Q4H PRN (RT), Wilbert Strickland MD, 3 mL at 07/31/24 0618 isavuconazonium (CRESEMBA) capsule 372 mg, 372 mg, oral, Daily, Francis Gordon MD, 372 mg at 08/01/24 0826 metoprolol tartrate immediate release capsule 6.25 mg, 6.25 mg, oral, BID, Francis Gordon MD, 6.25 mg at 08/01/24826 montelukast (SINGULAIR) tablet 10 mg, 10 mg, oral, Nightly, Wilbert Strickland MD, 10 mg at 07/31/242110 mycophenolate mofetil (CELLCEPT) tablet 1,000 mg, 1,000 mg, oral, BID, Caroline Maria PA, 1,000 mg at 08/01/24826 nicotine (NICODERM CQ) 21 mg patch 24 hour 1 patch, 1 patch, transdermal, Daily, Wilbert Strickland MD, 1 patch at 08/01/24826 ondansetron (ZOFRAN) injection 4 mg, 4 mg, intravenous, Q6H PRN, Wilbert Strickland MD oxyCODONE (ROXICODONE) tablet 5 mg, 5 mg, oral, Q4H PRN, Wilbert Strickland MD, [address] (PROTONIX) extended release tablet 40 mg, 40 mg, oral, BID, Wilbert Strickland MD, 40 mg at 08/01/24827 polyvinyl alcohol-povidone (REFRESH CLASSIC) 1.4-0.6 % ophthalmic solution 2 drop, 2 drop, each eye, TID PRN, Papi Muir MD, 2 drop at 08/01/24312 ramelteon (ROZEREM) tablet 8 mg, 8 mg, oral, Nightly PRN, Wilbert Strickland MD, 8 mg at 07/31/242110 rivaroxaban (XARELTO) tablet 20 mg, 20 mg, oral, Daily, Francis Gordon MD, 20 mg at 07/31/2453 sodium chloride 0.9% flush 5-10 mL, 5-10 mL, intra-catheter, Q12H ROSA MARIA, Francis Gordon MD, 10 mL at 07/31/242112 sodium chloride 0.9% flush 5-20 mL, 5-20 mL, intra-catheter, PRN, Francis Gordon MD tacrolimus immediate-release capsule 0.5 mg, 0.5 mg, oral, Every other day, Wilbert Strickland MD, 0.5 mg at 08/01/24 0829 Objective Vitals: 24hr Min/Max: Temp Min: 36.4 ??C (97.5 ??F) Max: 36.9 ??C (98.4 ??F) Pulse Min: 60 Max: 82 BP Min: 93/68 Max: 119/67 Resp Min: 16 Max: 20 SpO2 Min: 91 % Max: 100 % Most Recent : Vitals: 08/01/242034 BP: 105/48 BP Location: Patient Position: Pulse: 75 Resp: Temp: 36.9 ??C (98.4 ??F) TempSrc: SpO2: 100% Weight: I/O last 2 completed shifts: In: 600 [P.O.:590; I.V.:10] Out: 1600 [Urine:1600] Physical exam: Unless otherwise noted above General: Well appearing, NAD, appears stated age Skin: no rash, normal color and turgor HEENT: normocephalic, PERRLA, EOMI, no mucositis Abdomen: Soft, NTND, +BS Extremities: Atraumatic, acyanotic, no TTP, no edema Neuro: AAOx3, CN II-XI grossly intact, normal speech Psych: Appropriate mood, affect, and judgement. Lab/Radiology/Diagnostic Review: I have reviewed and interpreted the laboratory, radiologic, and diagnostic results from today. CBC: Recent Labs Lab Units 08/01/24 0054 WBC K/cumm 10.6* HEMOGLOBIN g/dL 9.1* HEMATOCRIT % 28.5* MCV fL 103.6* MCH pg 33.1 MCHC g/dL 31.9* RDW CV % 21.0* RDWSD fL 78.4* MPV fL 11.0 NEUTROS ABS K/cumm 5.5 LYMPHS PCT % 26.5 CMP: Recent Labs Lab Units 08/01/24203508/01/24 0712 08/01/24 0054 SODIUM mmol/L -- -- 134* POTASSIUM PLASMA mmol/L -- -- 5.4* CO2 mmol/L -- -- 34* BUN SERUM mg/dL -- -- 25 GLUCOSE mg/dL -- -- 166 POC GLUCOSE MONITOR mg/dL 70 < > -- CREATININE mg/dL -- -- 0.92 CALCIUM mg/dL -- -- 8.8 CHLORIDE mmol/L -- -- 95* ALBUMIN g/dL -- -- 3.2* AST Units/L -- -- 36 ALT Units/L -- -- 28 ALK PHOS Units/L -- -- 138* BILIRUBIN TOTAL mg/dL -- -- 0.2 TOTAL PROTEIN g/dL -- -- 6.4* ANIONGAP mmol/L -- -- 5 < > = values in this interval not displayed. LDH: Uric Acid: Tacrolimus level: Recent Labs Lab Units 07/30/24 0802 TACROLIMUS RANDOM ng/mL 1.2 Sirolimus level: Cyclosporine level: PT: PTT: Radiology: XR Chest 1 View Narrative: EXAMINATION: 1 view chest radiograph Impression: The current study is compared with the prior radiograph dated 07/19/2024. Unchanged hyperinflated lungs. There is relatively unchanged appearance of right upper lobe consolidation and cavitation consistent with previously noted atypical mycobacterial infection, better seen on CT dated 07/21/2024. Unchanged mild bibasilar atelectasis. No pleural effusion or pneumothorax. Cardiomediastinal silhouette is stable. Dictated by: Josué Jones M.D. The radiology attending physician has personally reviewed this study, and had reviewed and/or edited this written report and agrees with it. Electronically signed by: Derrell Ochoa M.D. Assessment/Plan #cGVHD -continue tacrolimus, MMF -OI ppx with acyclovir. Switch voriconazole to isavuconazonium givne prolonged QTc #MAC pulmonary infection -transplant ID on board -on amicakin (peak on 07/29/2024), azithromycin, ethambutol -needs ID follow up on discharge -PICC today, HH to start on Saturday for home infusion #New HFrEF - EF 30% -gentle diuresis -cardiology consulted -uptitrate GDMT as able #Chest pain - reportedly chronic but only mentioned to team on 07/31 -EKG with T wave changes, present since admission -Troponin WNL -Monitor symptoms overnight The patient was directly discussed with hospital medicine x ray consultant caring for patient and I personally reviewed their note. Cruz Pederson MD, [employer] Division of Oncology, Section of Leukemia and Bone Marrow Transplant [facility] in [place] * Francis Gordon MD - 08/01/2024 12:36 PM CDT Hospitalist Consult Daily Progress Note as requested by BMT Physician Division of Hospital Medicine Name: Bri Jones : 1965 Today's Date: August 01, 2024 Age: 58 y.o. male Admission: 07/23/2024 Bed: [id number] LOS: 9 days BMT Day: Subjective Chief complaint: Patient reports feeling okay this morning. No changes in dyspnea. Patient okay with discharge today. Does not have ride until after 6 pm. Interval History No acute events overnight Objective Scheduled Meds PRN Meds Infusions acyclovir, 400 mg, oral, TID amikacin, 700 mg, intravenous, Once per day on Saturday ascorbic acid, 500 mg, oral, Daily atorvastatin, 40 mg, oral, Daily azithromycin, 500 mg, oral, Daily cholecalciferol, 2,000 Units, oral, QAM clopidogreL, 75 mg, oral, Daily cyanocobalamin, 1,000 mcg, oral, QAM ethambutoL, 1,200 mg, oral, Daily hxngobjsgph-mhafxidul-rpkowrjf, 1 puff, inhalation, Daily gabapentin, 400 mg, oral, TID guaiFENesin ER, 600 mg, oral, BID heparin flush (porcine), 5 mL, intra-catheter, Q12H ROSA MARIA insulin glargine, 0.15 Units/kg, subcutaneous, Nightly insulin lispro, 0-4 Units, subcutaneous, Nightly insulin lispro, 0-5 Units, subcutaneous, TID with meals insulin lispro, 0.05 Units/kg, subcutaneous, TID with meals isavuconazonium, 372 mg, oral, Daily metoprolol tartrate, 6.25 mg, oral, BID montelukast, 10 mg, oral, Nightly mycophenolate mofetil, 1,000 mg, oral, BID nicotine, 1 patch, transdermal, Daily pantoprazole DR, 40 mg, oral, BID [Held by Provider] rivaroxaban, 20 mg, oral, Daily sodium chloride 0.9%, 5-10 mL, intra-catheter, Q12H ROSA MARIA tacrolimus, 0.5 mg, oral, Every other day acetaminophen, 650 mg, oral, Q4H PRN dextrose, 15 g, oral, Q15 Min PRN OR dextrose, 250 mL, intravenous, Q15 Min PRN glucagon, 1 mg, intramuscular, Q30 Min PRN HYDROmorphone, 0.5 mg, intravenous, Q4H PRN ipratropium-albuteroL, 3 mL, nebulization, Q4H PRN (RT) ondansetron, 4 mg, intravenous, Q6H PRN oxyCODONE, 5 mg, oral, Q4H PRN polyvinyl alcohol-povidone, 2 drop, each eye, TID PRN ramelteon, 8 mg, oral, Nightly PRN sodium chloride 0.9%, 5-20 mL, intra-catheter, PRN Vitals Most Recent Vitals: T 36.5 ??C (97.7 ??F), HR 61, BP 107/63, RR 18, SpO2 94 %. 24hr Min/Max: Temp Min: 36.4 ??C (97.5 ??F) Max: 37.1 ??C (98.7 ??F) Pulse Min: 60 Max: 89 BP Min: 90/60 Max: 119/67 Resp Min: 16 Max: 20 SpO2 Min: 91 % Max: 100 % Intake/Output Summary (Last 24 hours) at 08/01/2024 1236 Last data filed at 08/01/2024 0622 Gross per 24 hour Intake 900 ml Output 1500 ml Net -600 ml ICE Score: No data found. Baseline ICE Score: CRS and ICANS Grading: No data found. Physical Exam Vitals reviewed. Constitutional: General: He is not in acute distress. Appearance: Normal appearance. HENT: Head: Normocephalic. Mouth/Throat: Mouth: Mucous membranes are moist. Eyes: General: No scleral icterus. Extraocular Movements: Extraocular movements intact. Conjunctiva/sclera: Conjunctivae normal. Cardiovascular: Rate and Rhythm: Normal rate and regular rhythm. Pulses: Normal pulses. Heart sounds: Normal heart sounds. Pulmonary: Effort: Pulmonary effort is normal. Comments: Coarse breath sound Abdominal: General: Abdomen is flat. There is no distension. Palpations: Abdomen is soft. Tenderness: There is no abdominal tenderness. Musculoskeletal: Right lower leg: No edema. Left lower leg: No edema. Skin: General: Skin is warm and dry. Neurological: General: No focal deficit present. Mental Status: He is alert and oriented to person, place, and time. Mental status is at baseline. Psychiatric: Mood and Affect: Mood normal. Behavior: Behavior normal. Judgment: Judgment normal. Lines, Drains, Airways PICC Double Lumen 07/29/24 Non-tunneled Power #1 Red, Right Basilic;Upper arm (Active) Labs/Diagnostic Review CBC: Recent Labs Lab Units 08/01/24 0054 WBC K/cumm 10.6* HEMOGLOBIN g/dL 9.1* HEMATOCRIT % 28.5* MCV fL 103.6* MCH pg 33.1 MCHC g/dL 31.9* RDW CV % 21.0* RDWSD fL 78.4* MPV fL 11.0 NEUTROS ABS K/cumm 5.5 LYMPHS PCT % 26.5 CMP: Recent Labs Lab Units 08/01/24 0712 08/01/24 0054 SODIUM mmol/L -- 134* POTASSIUM PLASMA mmol/L -- 5.4* CO2 mmol/L -- 34* BUN SERUM mg/dL -- 25 GLUCOSE mg/dL -- 166 POC GLUCOSE MONITOR mg/dL 204* -- CREATININE mg/dL -- 0.92 CALCIUM mg/dL -- 8.8 CHLORIDE mmol/L -- 95* ALBUMIN g/dL -- 3.2* AST Units/L -- 36 ALT Units/L -- 28 ALK PHOS Units/L -- 138* BILIRUBIN TOTAL mg/dL -- 0.2 TOTAL PROTEIN g/dL -- 6.4* ANIONGAP mmol/L -- 5 LDH: INR - Uric Acid:- Tacrolimus level:- Sirolimus level: - Cyclosporine level: - (Labs above are the most recent result obtained in the last 24 hours unless otherwise specified. For additional labs/trends, see Epic.) I have reviewed the laboratory results. Imaging Review XR Chest 1 View Result Date: 07/31/2024 The current study is compared with the prior radiograph dated 07/19/2024. Unchanged hyperinflated lungs. There is relatively unchanged appearance of right upper lobe consolidation and cavitation consistent with previously noted atypical mycobacterial infection, better seen on CT dated 07/21/2024. Unchanged mild bibasilar atelectasis. No pleural effusion or pneumothorax. Cardiomediastinal silhouette is stable. Dictated by: Josué Jones M.D. The radiology attending physician has personally reviewed this study, and had reviewed and/or edited this written report and agrees with it. Electronically signed by: Derrell Ochoa M.D. Assessment/Plan MAC infection: Noted to have bilateral R>L cavitary lung consolidation in May 2024. Bronch 06/16/24 was positive for mycobacterium avium and Stenotrophomonas. Stenotrophomonas was treated with minocycline. Patient started on ethambutol on azithromycin 07/07/24. -CT chest 07/24/24 showed similar appearing cavitary lesions c/f refractory infection -ID consulted. Continue amikacin, azithro, ethambutol. Amikacin adjusted to 700 mg based on peak levels. -EKG 07/27/24 showed Qtc 517 on amikacin + vori. Vori was switched to cresemba 07/29/24 -baseline audiology exam performed 07/27/24 -PICC placed 07/29/24 for amikacin access OP Hypoxemia: -secondary to MAC infection Acute systolic heart failure: new depressed EF of 30% seen on TTE 07/24/24 -Cards consulted. Patient noted to have prior STEMI in Dec 2022 w/ PCI to RCA thought to be possible cause. Recommended for medical management -coreg switched to metop due to borderline low BP -losartan & aldactone held for hyperkalemia & borderline low BP -jardiance prescribed at discharge for GDMT w/ 0$ co-pay -continue plavix for history of RCA STEMI AML: S/p matched sib allo (D0 = 11/09/2009) w/ remission. C/b chronic GVHD eyes and lungs. -GVHD ppx: tacro every other day, mycophenolate -OI px: cresemba (prolonged QT on vori + amikacin), acyclovir History of PE: DVT and PE in 2012. Had IJ DVT 2017 -resume xarelto 08/02 COPD: -continue trelegy ellipta & PRN duonebs Diabetes: -A1c 6.7%. Jardiance at discharge Hyperkalemia Code status : Full Code Diet : Adult Diet Restricted; Mechanical Soft; Consistent Carbohydrate Adult Discharge Diet PT/OT Dispo Rec : PT Recommendation/Plan: Home Health PT, Home with intermittent assist / OT Recommendation: (S) Home with intermittent assist Supplementary Attestation Today, I am treating the patient for MAC which is in severe exacerbation, progression, or experiencing treatment side effects as evidenced by CT scan, as described in the note. Independently interpreted BMP which shows hyperkalemia. Discussed management of MAC with ID & Dr. Pederson. The patient is being intensively monitored for drug toxicity from ethambutol & amikacin by checking drug levels. Francis Gordon MD * Cruz Pederson MD - 07/31/2024 9:42 PM CDT BMT Progress Note BMT Day: Chief Complaint: Patient is a 58 y.o. male with chief complaint of worsening SOB. Subjective Patient is now on 3L and feels close to baseline. Plan was for discharge today, but near time of discharge patient reported chest pain that is worse with inspiration and not worse with exertion. Stated this has been present for several days, but not previously mentioned the clinical team. Dischargedelayed for evaluation. Active Treatment & Therapy Plans for Bri Jones Robert A does not have any active plans of the following types: Oncology Chemotherapy Treatment, Oncology Treatment (2), Oncology Treatment (3), Oncology Supportive Care, Specialty InfusionTreatment, Blood Products, BMT, Hematology Allergies Allergen Reactions Adhesive Redness burn Current Facility-Administered Medications: acetaminophen (TYLENOL) tablet 650 mg, 650 mg, oral, Q4H PRN, Wilbert Strickland MD acyclovir (ZOVIRAX) tablet 400 mg, 400 mg, oral, TID, Francis Gordon MD, 400 mg at 07/31/24 2111 amikacin (AMIKIN) 700 mg in sodium chloride 0.9% 28 mL (25 mg/mL) IV syringe, 700 mg, intravenous, Once per day on Saturday, Francis Gordon MD, Stopped at 07/31/24 1000 ascorbic acid (VITAMIN C) tablet 500 mg, 500 mg, oral, Daily, Wilbert Strickland MD, 500 mg at 07/31/24 0853 atorvastatin (LIPITOR) tablet 40 mg, 40 mg, oral, Daily, Wilbert Strickland MD, 40 mg at 07/31/24 08 azithromycin (ZITHROMAX) tablet 500 mg, 500 mg, oral, Daily, Caroline Maria PA, 500 mg at 07/31/24 08 cholecalciferol (VITAMIN D-3) capsule 2,000 Units, 2,000 Units, oral, QACasi, Wilbert Strickland MD, 2,000 Units at 07/31/24 08 clopidogreL (PLAVIX) tablet 75 mg, 75 mg, oral, Daily, Francis Gordon MD, 75 mg at 07/31/24852 cyanocobalamin (Vitamin B-12) tablet 1,000 mcg, 1,000 mcg, oral, QACasi, Wilbert Strickland MD, 1,000 mcg at 07/31/24852 dextrose gel in packet 15 g, 15 g, oral, Q15 Min PRN OR dextrose (D10W) 10% bolus 250 mL, 250 mL, intravenous, Q15 Min PRN, Wilbert Strickland MD ethambutoL (MYAMBUTOL) tablet 1,200 mg, 1,200 mg, oral, Daily, Wilbert Strickland MD, 1,200 mg at 07/31/24 08 wcjuhzbujhz-qcedeuooo-hcrtkiul (TRELEGY ELLIPTA) 200-62.5-25 mcg inhaler 1 puff, 1 puff, inhalation, Daily, Octavia Leums MD, 1 puff at 07/31/24 08 gabapentin (NEURONTIN) capsule 400 mg, 400 mg, oral, TID, Francis Gordon MD, 400 mg at 07/31/242110 glucagon injection 1 mg, 1 mg, intramuscular, Q30 Min PRN, Wilbert Strickland MD guaiFENesin ER (MUCINEX) extended release tablet 600 mg, 600 mg, oral, BID, Wilbert Strickland MD, 600 mg at 07/31/242110 heparin 10 unit/mL flush 50 Units, 5 mL, intra-catheter, Q12H ROSA MARIA, Francis Gordon MD, 50 Units at 07/31/242111 HYDROmorphone (DILAUDID) injection 0.5 mg, 0.5 mg, intravenous, Q4H PRN, Wilbert Strickland MD, 0.5 mg at 07/24/241 insulin glargine (LANTUS, SEMGLEE) 100 unit/mL injection 9 Units, 0.15 Units/kg, subcutaneous, Nightly, Stephani Reddy MD, 9 Units at 07/31/242110 insulin lispro (HumaLOG, ADMELOG) 100 unit/mL injection 0-4 Units, 0-4 Units, subcutaneous, Nightly, Stephani Reddy MD, 1 Units at 07/30/242155 insulin lispro (HumaLOG, ADMELOG) 100 unit/mL injection 0-5 Units, 0-5 Units, subcutaneous, TID with meals, Stephani Reddy MD, 2 Units at 07/31/241840 insulin lispro (HumaLOG, ADMELOG) 100 unit/mL injection 3 Units, 0.05 Units/kg, subcutaneous, TID with meals, Stephani Reddy MD, 3 Units at 07/31/241840 ipratropium-albuteroL (DUO-NEB) 0.5-2.5 mg/3 mL nebulizer solution 3 mL, 3 mL, nebulization, Q4H PRN (RT), Wilbert Strickland MD, 3 mL at 07/31/24 0618 isavuconazonium (CRESEMBA) capsule 372 mg, 372 mg, oral, Daily, Francis Gordon MD, 372 mg at 07/31/24 0853 metoprolol tartrate immediate release capsule 6.25 mg, 6.25 mg, oral, BID, Francis Gordon MD, 6.25 mg at 07/31/242110 montelukast (SINGULAIR) tablet 10 mg, 10 mg, oral, Nightly, Wilbert Strickland MD, 10 mg at 07/31/242110 mycophenolate mofetil (CELLCEPT) tablet 1,000 mg, 1,000 mg, oral, BID, Caroline Maria PA, 1,000 mg at 07/31/242110 nicotine (NICODERM CQ) 21 mg patch 24 hour 1 patch, 1 patch, transdermal, Daily, Wilbert Strickland MD, 1 patch at 07/31/24 0856 ondansetron (ZOFRAN) injection 4 mg, 4 mg, intravenous, Q6H PRN, Wilbert Strickland MD oxyCODONE (ROXICODONE) tablet 5 mg, 5 mg, oral, Q4H PRN, Wilbert Strickland MD, 5 mg at [address] (PROTONIX) extended release tablet 40 mg, 40 mg, oral, BID, Wilbert Strickland MD, 40 mg at 07/31/242110 ramelteon (ROZEREM) tablet 8 mg, 8 mg, oral, Nightly PRN, Wilbert Strickland MD, 8 mg at 07/31/242110 [Held by Provider] rivaroxaban (XARELTO) tablet 20 mg, 20 mg, oral, Daily, Francis Gordon MD, 20mg at 07/31/24 0853 sodium chloride 0.9% flush 5-10 mL, 5-10 mL, intra-catheter, Q12H ROSA MARIA, Francis Gordon MD, 10 mL at 07/31/242112 sodium chloride 0.9% flush 5-20 mL, 5-20 mL, intra-catheter, PRN, Francis Gordon MD tacrolimus immediate-release capsule 0.5 mg, 0.5 mg, oral, Every other day, Wilbert Strickland MD, 0.5 mg at 07/30/24 0745 Objective Vitals: 24hr Min/Max: Temp Min: 36.2 ??C (97.2 ??F) Max: 37.1 ??C (98.8 ??F) Pulse Min: 56 Max: 89 BP Min: 90/60 Max: 117/57 Resp Min: 16 Max: 20 SpO2 Min: 92 % Max: 100 % Most Recent : Vitals: 07/31/242110 BP: 93/68 BP Location: Patient Position: Pulse: 82 Resp: Temp: TempSrc: SpO2: Weight: I/O last 2 completed shifts: In: 790 [P.O.:790] Out: 2024 [Urine:2024] Physical exam: Unless otherwise noted above General: Well appearing, NAD, appears stated age Skin: no rash, normal color and turgor HEENT: normocephalic, PERRLA, EOMI, no mucositis Abdomen: Soft, NTND, +BS Extremities: Atraumatic, acyanotic, no TTP, no edema Neuro: AAOx3, CN II-XI grossly intact, normal speech Psych: Appropriate mood, affect, and judgement. Lab/Radiology/Diagnostic Review: I have reviewed and interpreted the laboratory, radiologic, and diagnostic results from today. CBC: Recent Labs Lab Units 07/31/24 0056 WBC K/cumm 10.4* HEMOGLOBIN g/dL 8.9* HEMATOCRIT % 27.0* MCV fL 103.4* MCH pg 34.1* MCHC g/dL 33.0 RDW CV % 20.4* RDWSD fL 77.3* MPV fL 11.1 NEUTROS ABS K/cumm 5.6 LYMPHS PCT % 25.9 CMP: Recent Labs Lab Units 07/31/24 2124 07/31/24 0723 07/31/24 0056 SODIUM mmol/L -- -- 134* POTASSIUM PLASMA mmol/L -- -- 5.1* CO2 mmol/L -- -- 35* BUN SERUM mg/dL -- -- 23 GLUCOSE mg/dL -- -- 146 POC GLUCOSE MONITOR mg/dL 171 < > -- CREATININE mg/dL -- -- 0.86 CALCIUM mg/dL -- -- 9.0 CHLORIDE mmol/L -- -- 92* ALBUMIN g/dL -- -- 3.3* AST Units/L -- -- 35 ALT Units/L -- -- 24 ALK PHOS Units/L -- -- 116 BILIRUBIN TOTAL mg/dL -- -- 0.2 TOTAL PROTEIN g/dL -- -- 6.4* ANIONGAP mmol/L -- -- 7 < > = values in this interval not displayed. LDH: Uric Acid: Tacrolimus level: Recent Labs Lab Units 07/30/24 0802 TACROLIMUS RANDOM ng/mL 1.2 Sirolimus level: Cyclosporine level: PT: PTT: Radiology: XR Chest 1 View Narrative: EXAMINATION: 1 view chest radiograph Impression: The current study is compared with the prior radiograph dated 07/19/2024. Unchanged hyperinflated lungs. There is relatively unchanged appearance of right upper lobe consolidation and cavitation consistent with previously noted atypical mycobacterial infection, better seen on CT dated 07/21/2024. Unchanged mild bibasilar atelectasis. No pleural effusion or pneumothorax. Cardiomediastinal silhouette is stable. Dictated by: Josué Jones M.D. The radiology attending physician has personally reviewed this study, and had reviewed and/or edited this written report and agrees with it. Electronically signed by: Derrell Ochoa M.D. Assessment/Plan #cGVHD -continue tacrolimus, MMF -OI ppx with acyclovir. Switch voriconazole to isavuconazonium givne prolonged QTc #MAC pulmonary infection -transplant ID on board -on amicakin (peak on 07/29/2024), azithromycin, ethambutol -needs ID follow up on discharge -PICC today, HH to start on Saturday for home infusion #New HFrEF - EF 30% -gentle diuresis -cardiology consulted -uptitrate GDMT as able #Chest pain - reportedly chronic but only mentioned to team on 07/31 -EKG with T wave changes, present since admission -Troponin WNL -Monitor symptoms overnight The patient was directly discussed with hospital medicine x ray consultant caring for patient and I personally reviewed their note. Cruz Pederson MD, [employer] Division of Oncology, Section of Leukemia and Bone Marrow Transplant [facility] in [place] * Francis Gordon MD - 07/31/2024 2:06 PM CDT Hospitalist Consult Daily Progress Note as requested by BMT Physician Division of Hospital Medicine Name: Bri Jones : 1965 Today's Date: July 31, 2024 Age: 58 y.o. male Admission: 07/23/2024 Bed: [id number] LOS: 8 days BMT Day: Subjective Chief complaint: Patient reports feeling okay this morning. No changes in dyspnea. Patient okay with discharge today. Does not have ride until after 6 pm. Interval History No acute events overnight Objective Scheduled Meds PRN Meds Infusions acyclovir, 400 mg, oral, TID amikacin, 700 mg, intravenous, Once per day on Saturday ascorbic acid, 500 mg, oral, Daily atorvastatin, 40 mg, oral, Daily azithromycin, 500 mg, oral, Daily cholecalciferol, 2,000 Units, oral, QAM clopidogreL, 75 mg, oral, Daily cyanocobalamin, 1,000 mcg, oral, QAM ethambutoL, 1,200 mg, oral, Daily juectsytskz-zxatusbvi-lnklills, 1 puff, inhalation, Daily gabapentin, 400 mg, oral, TID guaiFENesin ER, 600 mg, oral, BID heparin flush (porcine), 5 mL, intra-catheter, Q12H ROSA MARIA insulin glargine, 0.15 Units/kg, subcutaneous, Nightly insulin lispro, 0-4 Units, subcutaneous, Nightly insulin lispro, 0-5 Units, subcutaneous, TID with meals insulin lispro, 0.05 Units/kg, subcutaneous, TID with meals isavuconazonium, 372 mg, oral, Daily metoprolol tartrate, 6.25 mg, oral, BID montelukast, 10 mg, oral, Nightly mycophenolate mofetil, 1,000 mg, oral, BID nicotine, 1 patch, transdermal, Daily pantoprazole DR, 40 mg, oral, BID rivaroxaban, 20 mg, oral, Daily sodium chloride 0.9%, 5-10 mL, intra-catheter, Q12H ROSA MARIA tacrolimus, 0.5 mg, oral, Every other day acetaminophen, 650 mg, oral, Q4H PRN dextrose, 15 g, oral, Q15 Min PRN OR dextrose, 250 mL, intravenous, Q15 Min PRN glucagon, 1 mg, intramuscular, Q30 Min PRN HYDROmorphone, 0.5 mg, intravenous, Q4H PRN ipratropium-albuteroL, 3 mL, nebulization, Q4H PRN (RT) ondansetron, 4 mg, intravenous, Q6H PRN oxyCODONE, 5 mg, oral, Q4H PRN ramelteon, 8 mg, oral, Nightly PRN sodium chloride 0.9%, 5-20 mL, intra-catheter, PRN Vitals Most Recent Vitals: T 36.2 ??C (97.2 ??F), HR 67, BP 117/57, RR 16, SpO2 99 %. 24hr Min/Max: Temp Min: 36.2 ??C (97.2 ??F) Max: 37.1 ??C (98.8 ??F) Pulse Min: 56 Max: 78 BP Min: 92/55 Max: 117/57 Resp Min: 16 Max: 20 SpO2 Min: 92 % Max: 100 % Intake/Output Summary (Last 24 hours) at 07/31/2024 1406 Last data filed at 07/31/2024 0943 Gross per 24 hour Intake 1470 ml Output 3075 ml Net -1605 ml ICE Score: No data found. Baseline ICE Score: CRS and ICANS Grading: No data found. Physical Exam Vitals reviewed. Constitutional: General: He is not in acute distress. Appearance: Normal appearance. HENT: Head: Normocephalic. Mouth/Throat: Mouth: Mucous membranes are moist. Eyes: General: No scleral icterus. Extraocular Movements: Extraocular movements intact. Conjunctiva/sclera: Conjunctivae normal. Cardiovascular: Rate and Rhythm: Normal rate and regular rhythm. Pulses: Normal pulses. Heart sounds: Normal heart sounds. Pulmonary: Effort: Pulmonary effort is normal. Comments: Coarse breath sound Abdominal: General: Abdomen is flat. There is no distension. Palpations: Abdomen is soft. Tenderness: There is no abdominal tenderness. Musculoskeletal: Right lower leg: No edema. Left lower leg: No edema. Skin: General: Skin is warm and dry. Neurological: General: No focal deficit present. Mental Status: He is alert and oriented to person, place, and time. Mental status is at baseline. Psychiatric: Mood and Affect: Mood normal. Behavior: Behavior normal. Judgment: Judgment normal. Lines, Drains, Airways PICC Double Lumen 07/29/24 Non-tunneled Power #1 Red, Right Basilic;Upper arm (Active) Labs/Diagnostic Review CBC: Recent Labs Lab Units 07/31/24 0056 WBC K/cumm 10.4* HEMOGLOBIN g/dL 8.9* HEMATOCRIT % 27.0* MCV fL 103.4* MCH pg 34.1* MCHC g/dL 33.0 RDW CV % 20.4* RDWSD fL 77.3* MPV fL 11.1 NEUTROS ABS K/cumm 5.6 LYMPHS PCT % 25.9 CMP: Recent Labs Lab Units 07/31/24 1227 07/31/24 0723 07/31/24 0056 SODIUM mmol/L -- -- 134* POTASSIUM PLASMA mmol/L -- -- 5.1* CO2 mmol/L -- -- 35* BUN SERUM mg/dL -- -- 23 GLUCOSE mg/dL -- -- 146 POC GLUCOSE MONITOR mg/dL 105 < > -- CREATININE mg/dL -- -- 0.86 CALCIUM mg/dL -- -- 9.0 CHLORIDE mmol/L -- -- 92* ALBUMIN g/dL -- -- 3.3* AST Units/L -- -- 35 ALT Units/L -- -- 24 ALK PHOS Units/L -- -- 116 BILIRUBIN TOTAL mg/dL -- -- 0.2 TOTAL PROTEIN g/dL -- -- 6.4* ANIONGAP mmol/L -- -- 7 < > = values in this interval not displayed. LDH: INR - Uric Acid:- Tacrolimus level:1.2 Sirolimus level: - Cyclosporine level: - (Labs above are the most recent result obtained in the last 24 hours unless otherwise specified. For additional labs/trends, see Epic.) I have reviewed the laboratory results. Imaging Review No results found. Assessment/Plan MAC infection: Noted to have bilateral R>L cavitary lung consolidation in May 2024. Bronch 06/16/24 was positive for mycobacterium avium and Stenotrophomonas. Stenotrophomonas was treated with minocycline. Patient started on ethambutol on azithromycin 07/07/24. -CT chest 07/24/24 showed similar appearing cavitary lesions c/f refractory infection -ID consulted. Continue amikacin, azithro, ethambutol. Amikacin adjusted to 700 mg based on peak levels. -EKG 07/27/24 showed Qtc 517 on amikacin + vori. Vori was switched to cresemba 07/29/24 -baseline audiology exam performed 07/27/24 -PICC placed 07/29/24 for amikacin access OP Hypoxemia: -secondary to MAC infection Acute systolic heart failure: new depressed EF of 30% seen on TTE 07/24/24 -Cards consulted. Patient noted to have prior STEMI in Dec 2022 w/ PCI to RCA thought to be possible cause. Recommended for medical management -coreg switched to metop due to borderline low BP -losartan & aldactone held for hyperkalemia & borderline low BP -jardiance prescribed at discharge for GDMT w/ 0$ co-pay -continue plavix for history of RCA STEMI AML: in remission -GVHD ppx: tacro every other day, mycophenolate -OI px: cresemba (prolonged QT on vori + amikacin), acyclovir History of PE: DVT and PE in 2012. Had IJ DVT 2017 -continue xarelto COPD: -continue trelegy ellipta & PRN duonebs Hyperkalemia Code status : Full Code Diet : Adult Diet Restricted; Mechanical Soft; Consistent Carbohydrate Adult Discharge Diet PT/OT Dispo Rec : PT Recommendation/Plan: Home Health PT, Home with intermittent assist / OT Recommendation: (S) Home with intermittent assist Supplementary Attestation Today, I am treating the patient for MAC which is in severe exacerbation, progression, or experiencing treatment side effects as evidenced by CT scan, as described in the note. Independently interpreted BMP which shows hyperkalemia. Discussed management of MAC with ID & Dr. Pederson. The patient is being intensively monitored for drug toxicity from ethambutol & amikacin by checking drug levels. 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Part D will need drug to run for copay Send AOB with delivery * Cruz Pederson MD - 07/30/2024 9:52 PM CDT BMT Progress Note BMT Day: Chief Complaint: Patient is a 58 y.o. male with chief complaint of worsening SOB. Subjective Patient is now on 3L and feels close to baseline. Doing okay. Active Treatment & Therapy Plans for Bri Jones Robert A does not have any active plans of the following types: Oncology Chemotherapy Treatment, Oncology Treatment (2), Oncology Treatment (3), Oncology Supportive Care, Specialty InfusionTreatment, Blood Products, BMT, Hematology Allergies Allergen Reactions Adhesive Redness burn Current Facility-Administered Medications: acetaminophen (TYLENOL) tablet 650 mg, 650 mg, oral, Q4H PRN, Wilbert Strickland MD acyclovir (ZOVIRAX) tablet 400 mg, 400 mg, oral, TID, Francis Gordon MD, 400 mg at 07/30/24 1731 [START ON 07/31/2024] amikacin (AMIKIN) 700 mg in sodium chloride 0.9% 28 mL (25 mg/mL) IV syringe, 700 mg, intravenous, Once per day on Saturday, Francis Gordon MD ascorbic acid (VITAMIN C) tablet 500 mg, 500 mg, oral, Daily, Wilbert Strickland MD, 500 mg at 07/30/24 0747 atorvastatin (LIPITOR) tablet 40 mg, 40 mg, oral, Daily, Wilbert Strickland MD, 40 mg at 07/30/24 0745 azithromycin (ZITHROMAX) tablet 500 mg, 500 mg, oral, Daily, Caroline Maria PA, 500 mg at 07/30/24 0745 cholecalciferol (VITAMIN D-3) capsule 2,000 Units, 2,000 Units, oral, QACasi, Wilbert Strickland MD, 2,000 Units at 07/30/24 0745 clopidogreL (PLAVIX) tablet 75 mg, 75 mg, oral, Daily, Francis Gordon MD, 75 mg at 07/30/24 0745 cyanocobalamin (Vitamin B-12) tablet 1,000 mcg, 1,000 mcg, oral, DENNIS, Wilbert Strickland MD, 1,000 mcg at 07/30/24 0747 dextrose gel in packet 15 g, 15 g, oral, Q15 Min PRN OR dextrose (D10W) 10% bolus 250 mL, 250 mL, intravenous, Q15 Min PRN, Wilbert Strickland MD ethambutoL (MYAMBUTOL) tablet 1,200 mg, 1,200 mg, oral, Daily, Wilbert Strickland MD, 1,200 mg at 07/30/24 0747 uvagvgbkyaw-qfjzszaip-tglxdgau (TRELEGY ELLIPTA) 200-62.5-25 mcg inhaler 1 puff, 1 puff, inhalation, Daily, Octavia Lemus MD, 1 puff at 07/30/24 0748 gabapentin (NEURONTIN) capsule 400 mg, 400 mg, oral, TID, Francis Gordon MD, 400 mg at 07/30/24 1731 glucagon injection 1 mg, 1 mg, intramuscular, Q30 Min PRN, Wilbert Strickland MD guaiFENesin ER (MUCINEX) extended release tablet 600 mg, 600 mg, oral, BID, Wilbert Strickland MD, 600 mg at 07/30/24 0745 HYDROmorphone (DILAUDID) injection 0.5 mg, 0.5 mg, intravenous, Q4H PRN, Wilbert Strickland MD, 0.5 mg at 07/24/24 0411 insulin glargine (LANTUS, SEMGLEE) 100 unit/mL injection 9 Units, 0.15 Units/kg, subcutaneous, Nightly, Stephani Reddy MD, 9 Units at 07/29/242042 insulin lispro (HumaLOG, ADMELOG) 100 unit/mL injection 0-4 Units, 0-4 Units, subcutaneous, Nightly, Stephani Reddy MD insulin lispro (HumaLOG, ADMELOG) 100 unit/mL injection 0-5 Units, 0-5 Units, subcutaneous, TID with meals, Stephani Reddy MD, 2 Units at 07/30/24 183 insulin lispro (HumaLOG, ADMELOG) 100 unit/mL injection 3 Units, 0.05 Units/kg, subcutaneous, TID with meals, Stephani Reddy MD, 3 Units at 07/30/24 1840 ipratropium-albuteroL (DUO-NEB) 0.5-2.5 mg/3 mL nebulizer solution 3 mL, 3 mL, nebulization, Q4H PRN (RT), Wilbert Strickland MD, 3 mL at 07/29/24 1412 isavuconazonium (CRESEMBA) capsule 372 mg, 372 mg, oral, TID, Francis Gordon MD, 372 mg at 07/30/24 1731 [START ON 07/31/2024] isavuconazonium (CRESEMBA) capsule 372 mg, 372 mg, oral, Daily, Francis Gordon MD metoprolol tartrate immediate release capsule 6.25 mg, 6.25 mg, oral, BID, Francis Gordon MD, 6.25 mg at 07/30/24 1027 montelukast (SINGULAIR) tablet 10 mg, 10 mg, oral, Nightly, Wilbert Strickland MD, 10 mg at 07/29/24 204 mycophenolate mofetil (CELLCEPT) tablet 1,000 mg, 1,000 mg, oral, BID, Caroline Maria PA, 1,000 mg at 07/30/24 0747 nicotine (NICODERM CQ) 21 mg patch 24 hour 1 patch, 1 patch, transdermal, Daily, Wilbert Strickland MD, 1 patch at 07/30/24 0900 ondansetron (ZOFRAN) injection 4 mg, 4 mg, intravenous, Q6H PRN, Wilbert Strickland MD oxyCODONE (ROXICODONE) tablet 5 mg, 5 mg, oral, Q4H PRN, Wilbert Strickland MD, 5 mg at [address] (PROTONIX) extended release tablet 40 mg, 40 mg, oral, BID, Wilbert Strickland MD, 40 mg at 07/30/24 0745 ramelteon (ROZEREM) tablet 8 mg, 8 mg, oral, Nightly PRN, Wilbert Strickland MD, 8 mg at 07/29/24 2352 rivaroxaban (XARELTO) tablet 20 mg, 20 mg, oral, Daily, Francis Gordon MD, 20 mg at 07/30/24 1027 sodium chloride 0.9% flush 5-10 mL, 5-10 mL, intra-catheter, Q12H ROSA MARIA, Francis Gordon MD, 10 mL at 07/30/24 1027 sodium chloride 0.9% flush 5-20 mL, 5-20 mL, intra-catheter, PRN, Francis Gordon MD tacrolimus immediate-release capsule 0.5 mg, 0.5 mg, oral, Every other day, Wilbert Strickland MD, 0.5 mg at 07/30/24 0745 Objective Vitals: 24hr Min/Max: Temp Min: 36.2 ??C (97.2 ??F) Max: 37 ??C (98.6 ??F) Pulse Min: 69 Max: 89 BP Min: 95/50 Max: 119/65 Resp Min: 20 Max: 20 SpO2 Min: 96 % Max: 99 % Most Recent : Vitals: 07/30/242012 BP: 105/58 BP Location: Left arm Patient Position: HOB 30 degrees Pulse: 77 Resp: 20 Temp: 36.2 ??C (97.2 ??F) TempSrc: Oral SpO2: 98% Weight: 59 kg (130 lb 1.6 oz) I/O last 2 completed shifts: In: 1999 [P.O.:1960; I.V.:40] Out: 3155 [Urine:3155] Physical exam: Unless otherwise noted above General: Well appearing, NAD, appears stated age Skin: no rash, normal color and turgor HEENT: normocephalic, PERRLA, EOMI, no mucositis Abdomen: Soft, NTND, +BS Extremities: Atraumatic, acyanotic, no TTP, no edema Neuro: AAOx3, CN II-XI grossly intact, normal speech Psych: Appropriate mood, affect, and judgement. Lab/Radiology/Diagnostic Review: I have reviewed and interpreted the laboratory, radiologic, and diagnostic results from today. CBC: Recent Labs Lab Units 07/29/24 2357 WBC K/cumm 12.3* HEMOGLOBIN g/dL 8.7* HEMATOCRIT % 26.7* MCV fL 101.5* MCH pg 33.1 MCHC g/dL 32.6 RDW CV % 20.7* RDWSD fL 76.9* MPV fL 11.2 NEUTROS ABS K/cumm 7.1* LYMPHS PCT % 23.5 CMP: Recent Labs Lab Units 07/30/24 2105 07/30/24 0714 07/29/24 2357 SODIUM mmol/L -- -- 135 POTASSIUM PLASMA mmol/L -- -- 5.3* CO2 mmol/L -- -- 36* BUN SERUM mg/dL -- -- 23 GLUCOSE mg/dL -- -- 233* POC GLUCOSE MONITOR mg/dL 230* < > -- CREATININE mg/dL -- -- 0.78* CALCIUM mg/dL -- -- 8.6 CHLORIDE mmol/L -- -- 93* ALBUMIN g/dL -- -- 3.0* AST Units/L -- -- 34 ALT Units/L -- -- 23 ALK PHOS Units/L -- -- 108 BILIRUBIN TOTAL mg/dL -- -- 0.2 TOTAL PROTEIN g/dL -- -- 6.0* ANIONGAP mmol/L -- -- 6 < > = values in this interval not displayed. LDH: Uric Acid: Tacrolimus level: Recent Labs Lab Units 07/30/24 0802 TACROLIMUS RANDOM ng/mL 1.2 Sirolimus level: Cyclosporine level: PT: Recent Labs Lab Units 07/24/24 0028 PROTIME (PT) sec 36.7* PTT: Recent Labs Lab Units 07/24/2427 APTT sec 36 Radiology: Transthoracic Echo (TTE) Complete W Doppler/CF Patient name: Bri Jones Date of test: 07/24/2024 Type of test: TTE w/Doppler Hospital #: 0 Date of : 1965 (M) Plastic Surgery Coordinator: Mariah Peters RDCS, RCCS Referring Physician: CAROLINE MARIA MD Contrast Agent: 0.8 ml Optison Administered, (2.2 ml wasted). Contrast Administered by: Sidra Garcia RN Supervised/Interpreted by: Bladimir Henao MD Diagnosis: Location: [facility] Reason for test: H/o CHF, worsening BNP and SOB MV Structure: Normal, MV Motion: Normal, Mitral Annulus: Normal AV Structure: tricuspid and is Normal, AV Motion: Normal Aotic root: Normal, TM: Normal, PV: Normal Valvular Vegetations: none seen, Mass/Thrombi: none seen RA: Normal Measurements: M-Mode Normal Aotic Root: <3.8 LA: <4.0 RV: <2.8 LV(ED): <5.7 LV(ES): Variable 2D Linear Normal Aotic Root: 3.1 cm <4.0 Ao Indexed: 1.8 cm/M2 <2.0 LA: <4.0 RV: 5.0 cm <4.2 LV(ED): 4.4 cm <5.9 LV(ES): 3.5 cm <4.0 2D Vol. Normal Indexed Indexed Normal RA: 30.0 ml 17.1 ml/M2 11-39 LA: 43.0 ml 24.5 ml/M2 16-34 RV: <12.7 LV(ED): 114.0 ml 62-150 64.9 ml/M2 <75 LV(ES): 21-61 <32 3D Vol. Indexed Normal LV(ED): <75 LV(ES): <32 LV EF: 30 % (Normal: >=52%) LV Septum: 0.9 cm (Normal: <1.0 cm) Wall Motion Scoring (1=Normal 2=Hypo 3=Akinetic 4=Dyskin./Aneurysm 0=Not visualized) Parasternal Long [place]:MAS=2 BAS=2 MIL=2 KEN=2 Parasternal Short [place]:MAS=2 MIS=2 TN=2 MIL=2 MAL=2 MA=2 Apical 4 Chambers:=2 MIS=2 BIS=2 BAL=2 MAL=2 AL=2 AC=2 Apical 2 Chambers:AI=2 TN=2 BI=2 BA=2 MA=2 AA=2 AC=2 LV Global Longitudinal Strain: -8.8% (Normal <-17%) RV Global Longitudinal Strain: -12% (Normal <-17%) LV Function: Moderate Global reduction in LV Ejection Fraction (EF=30-40%); EF 30%via visual assessment RV Function: mild global hypokinesis Septal Motion: Normal Pericardial Effusion: Trivial Atrial Septum: Normal DOPPLER/COLOR FLOW DOPPLER RESULTS: Diastolic Function: Grade II, increased mean LA pres. Tricuspid Valve: normal TV Pulmonic Valve: normal PV AV Regurgitation: No AR seen AV Stenosis: no AV Area: cm2 AV Pressure Gradient (mmHg): Mean: 0, Peak:0 MV Regurgitation: Mild-moderate MR MV Stenosis: no MS MV Area: cm2 MV Pressure Gradient (mmHg): Mean: 0 MV ERO: cm Regurg. Vol.: ml/beat Regurg. Frac.: % PA Pressure: 33+RA mmHg DOPPLER/COLOR FOLOW DOPPLER COMMENTS: No AR seen, Mild-moderate MR, no , no MS, normal TV, normal PV. Diastolic function: Grade II, increased mean LA pres. CONTRAST: 0.8 ml Optison Administered, (2.2 ml wasted). SUMMARY: TDS. Poor acoustic window. LV cavity size is normal with moderate global hypokinesis. LVEF visually estimated 30%. CI 1.07 l/min/m2. LA is normal. Mild RV cavity enlargement with moderate dysfunction. Mild-moderate MR. Grade II diastolic function characterized by elevated mean LA pressure. Estimated PA systolic pressure 33+RA(15) mmHg. Dilated inferior vena cava. Reduced global LV strain (-8.8%). Normal aorta. Changes noted. Confirmed on 07/24/2024 - 18:22:00 by Bladimir Henao MD By signing this report, the attending supervisor assembly room certifies that he or she has personally supervised and interpreted the echocardiogram and has reviewed and or edited and agrees with the written comments contained within the report. CT Body Outside Consult Narrative: EXAMINATION: RADIOLOGY CONSULTATION ON OUTSIDE IMAGING STUDY STUDY INITIALLY PERFORMED: 07/21/2024 at unknown. TYPE OF STUDY: Multiple CTA images of the chest with PE protocol are provided at the time of this interpretation. CONTRAST ROUTE: Contrast was administered via the intravenous route. The protocol was adequate to address the clinical question. The outside final report was not available at the time of this second opinion interpretation. 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 COMPARISON: CT chest with contrast dated 07/14/2024. FINDINGS: No central, segmental, or subsegmental pulmonary embolism. Mild coronary artery calcifications. There is mucous plugging and debris throughout the bilateral tracheobronchial trees, likely aspiration. There is a large cavity in the right lung apex with internal frond-like contents, not significantly changed. There is a general background of emphysema throughout the lungs. There are additional peribronchial vascular opacities, some of which are slightly improved from CT dated 07/14/2024, for instance in the medial right upper lobe, but remain persistent. There are additional irregular nodules throughout the lungs, which are predominantly new when compared with the 05/28/2024 exam. There are no new pulmonary nodule seen. No pleural effusion or pneumothorax. No acute CT findings in the imaged upper abdomen. Severe atherosclerosis of the upper abdominal aorta. No suspicious osseous lesions. Impression: 1. 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 These findings are not significant changed from CT dated 07/14/2024, but remain worse than CT dated 05/28/2024. 2. Lower lobe mucus plugging with nodularity suspicious for superimposed aspiration pneumonia, which is new from CT dated 05/28/2024. The findings, conclusions and recommendations within this report do not replace the initial findings, conclusions and recommendations made at the facility where the study was performed based upon the imaging and clinical condition at that time. Comparison with the prior report and clinical history is necessary. The provided images may or may not represent the [employer] source data set and thus may contain changes that may lower the accuracy of this second-opinion interpretation. Dictated by: Slick Guzman M.D. The radiology attending physician has personally reviewed this study, and had reviewed and/or edited this written report and agrees with it. Electronically signed by: Cameron Lenz M.D. XR Outside Reference Narrative: EXAMINATION: Images For Reference Purposes Only Impression: These images are for Reference purposes only and have not been reviewed by [facility] Radiology. There will be no report generated by a [facility] Radiologist. Assessment/Plan #cGVHD -continue tacrolimus, MMF -OI ppx with acyclovir. Switch voriconazole to isavuconazonium givne prolonged QTc #MAC pulmonary infection -transplant ID on board -on amicakin (peak on 07/29/2024), azithromycin, ethambutol -needs ID follow up on discharge -PICC today, HH to start on Saturday for home infusion #New HFrEF - EF 30% -gentle diuresis -cardiology consulted -uptitrate GDMT as able The patient was directly discussed with hospital medicine x ray consultant caring for patient and I personally reviewed their note. Cruz Pederson MD, [employer] Division of Oncology, Section of Leukemia and Bone Marrow Transplant [facility] [employer] [facility] in [place] * Francis Gordon MD - 07/30/2024 3:39 PM CDT Hospitalist Consult Daily Progress Note as requested by BMT Physician Division of Hospital Medicine Name: Bri Jones : 1965 Today's Date: July 30, 2024 Age: 58 y.o. male Admission: 07/23/2024 Bed: [id number] LOS: 7 days BMT Day: Subjective Chief complaint: Patient reports feeling okay. Reports no improvement in breathing. Interval History BP improved today. Metop started for GDMT Objective Scheduled Meds PRN Meds Infusions acyclovir, 400 mg, oral, TID [START ON 07/31/2024] amikacin, 700 mg, intravenous, Once per day on Saturday ascorbic acid, 500 mg, oral, Daily atorvastatin, 40 mg, oral, Daily azithromycin, 500 mg, oral, Daily cholecalciferol, 2,000 Units, oral, QAM clopidogreL, 75 mg, oral, Daily cyanocobalamin, 1,000 mcg, oral, QAM ethambutoL, 1,200 mg, oral, Daily idnttmxpzub-ynpncsnya-namgagrx, 1 puff, inhalation, Daily gabapentin, 400 mg, oral, TID guaiFENesin ER, 600 mg, oral, BID insulin glargine, 0.15 Units/kg, subcutaneous, Nightly insulin lispro, 0-4 Units, subcutaneous, Nightly insulin lispro, 0-5 Units, subcutaneous, TID with meals insulin lispro, 0.05 Units/kg, subcutaneous, TID with meals isavuconazonium, 372 mg, oral, TID [START ON 07/31/2024] isavuconazonium, 372 mg, oral, Daily metoprolol tartrate, 6.25 mg, oral, BID montelukast, 10 mg, oral, Nightly mycophenolate mofetil, 1,000 mg, oral, BID nicotine, 1 patch, transdermal, Daily pantoprazole DR, 40 mg, oral, BID rivaroxaban, 20 mg, oral, Daily sodium chloride 0.9%, 5-10 mL, intra-catheter, Q12H ROSA MARIA tacrolimus, 0.5 mg, oral, Every other day acetaminophen, 650 mg, oral, Q4H PRN dextrose, 15 g, oral, Q15 Min PRN OR dextrose, 250 mL, intravenous, Q15 Min PRN glucagon, 1 mg, intramuscular, Q30 Min PRN HYDROmorphone, 0.5 mg, intravenous, Q4H PRN ipratropium-albuteroL, 3 mL, nebulization, Q4H PRN (RT) ondansetron, 4 mg, intravenous, Q6H PRN oxyCODONE, 5 mg, oral, Q4H PRN ramelteon, 8 mg, oral, Nightly PRN sodium chloride 0.9%, 5-20 mL, intra-catheter, PRN Vitals Most Recent Vitals: T 36.8 ??C (98.2 ??F), HR 74, BP 95/50, RR 20, SpO2 99 %. 24hr Min/Max: Temp Min: 36.7 ??C (98.1 ??F) Max: 37.2 ??C (99 ??F) Pulse Min: 72 Max: 89 BP Min: 95/50 Max: 119/65 Resp Min: 20 Max: 20 SpO2 Min: 96 % Max: 99 % Intake/Output Summary (Last 24 hours) at 07/30/2024 1539 Last data filed at 07/30/2024 1210 Gross per 24 hour Intake 1520 ml Output 2355 ml Net -835 ml ICE Score: No data found. Baseline ICE Score: CRS and ICANS Grading: No data found. Physical Exam Vitals reviewed. Constitutional: General: He is not in acute distress. Appearance: Normal appearance. HENT: Head: Normocephalic. Mouth/Throat: Mouth: Mucous membranes are moist. Eyes: General: No scleral icterus. Extraocular Movements: Extraocular movements intact. Conjunctiva/sclera: Conjunctivae normal. Cardiovascular: Rate and Rhythm: Normal rate and regular rhythm. Pulses: Normal pulses. Heart sounds: Normal heart sounds. Pulmonary: Effort: Pulmonary effort is normal. Comments: Coarse breath sound Abdominal: General: Abdomen is flat. There is no distension. Palpations: Abdomen is soft. Tenderness: There is no abdominal tenderness. Musculoskeletal: Right lower leg: No edema. Left lower leg: No edema. Skin: General: Skin is warm and dry. Neurological: General: No focal deficit present. Mental Status: He is alert and oriented to person, place, and time. Mental status is at baseline. Psychiatric: Mood and Affect: Mood normal. Behavior: Behavior normal. Judgment: Judgment normal. Lines, Drains, Airways PICC Double Lumen 07/29/24 Non-tunneled Power #1 Red, Right Basilic;Upper arm (Active) Labs/Diagnostic Review CBC: Recent Labs Lab Units 07/29/24 2357 WBC K/cumm 12.3* HEMOGLOBIN g/dL 8.7* HEMATOCRIT % 26.7* MCV fL 101.5* MCH pg 33.1 MCHC g/dL 32.6 RDW CV % 20.7* RDWSD fL 76.9* MPV fL 11.2 NEUTROS ABS K/cumm 7.1* LYMPHS PCT % 23.5 CMP: Recent Labs Lab Units 07/30/24 1156 07/30/24 0714 07/29/24 2357 SODIUM mmol/L -- -- 135 POTASSIUM PLASMA mmol/L -- -- 5.3* CO2 mmol/L -- -- 36* BUN SERUM mg/dL -- -- 23 GLUCOSE mg/dL -- -- 233* POC GLUCOSE MONITOR mg/dL 164 < > -- CREATININE mg/dL -- -- 0.78* CALCIUM mg/dL -- -- 8.6 CHLORIDE mmol/L -- -- 93* ALBUMIN g/dL -- -- 3.0* AST Units/L -- -- 34 ALT Units/L -- -- 23 ALK PHOS Units/L -- -- 108 BILIRUBIN TOTAL mg/dL -- -- 0.2 TOTAL PROTEIN g/dL -- -- 6.0* ANIONGAP mmol/L -- -- 6 < > = values in this interval not displayed. LDH: INR - Uric Acid:- Tacrolimus level:1.2 Sirolimus level: - Cyclosporine level: - (Labs above are the most recent result obtained in the last 24 hours unless otherwise specified. For additional labs/trends, see Epic.) I have reviewed the laboratory results. Imaging Review No results found. Assessment/Plan MAC infection: Noted to have bilateral R>L cavitary lung consolidation in May 2024. Bronch 06/16/24 was positive for mycobacterium avium and Stenotrophomonas. Stenotrophomonas was treated with minocycline. Patient started on ethambutol on azithromycin 07/07/24. -CT chest 07/24/24 showed similar appearing cavitary lesions c/f refractory infection -ID consulted. Continue amikacin, azithro, ethambutol. Amikacin adjusted to 700 mg based on peak levels. -EKG 07/27/24 showed Qtc 517 on amikacin + vori. Vori was switched to cresemba 07/29/24 -baseline audiology exam performed 07/27/24 -PICC placed 07/29/24 for amikacin access OP Hypoxemia: -secondary to MAC infection Acute systolic heart failure: new depressed EF of 30% seen on TTE 07/24/24 -Cards consulted. Patient noted to have prior STEMI in Dec 2022 w/ PCI to RCA thought to be possible cause. Recommended for medical management -coreg switched to metop due to borderline low BP -losartan & aldactone held for hyperkalemia & borderline low BP -continue plavix for history of RCA STEMI AML: in remission -GVHD ppx: tacro every other day, mycophenolate -OI px: cresemba (prolonged QT on vori + amikacin), acyclovir History of PE: DVT and PE in 2012. Had IJ DVT 2017 -continue xarelto COPD: -continue trelegy ellipta & PRN duonebs Code status : Full Code Diet : Adult Diet Restricted; Mechanical Soft; Consistent Carbohydrate PT/OT Dispo Rec : PT Recommendation/Plan: Home Health PT, Home with intermittent assist / OT Recommendation: (S) Home with intermittent assist Supplementary Attestation Today, I am treating the patient for MAC which is in severe exacerbation, progression, or experiencing treatment side effects as evidenced by CT scan, as described in the note. Independently interpreted CT scan which shows cavitary lung consolidation. Discussed management of MAC with ID & Dr. Pederson. The patient is being intensively monitored for drug toxicity from ethambutol & amikacin by checking drug levels. Francis Gordon MD * Cruz Pederson MD - 07/29/2024 8:48 PM CDT BMT Progress Note BMT Day: Chief Complaint: Patient is a 58 y.o. male with chief complaint of worsening SOB. Subjective Patient is now on 3L and feels close to baseline. Pressure soft today, held BP medications. Active Treatment & Therapy Plans for Jones Bri Bertin Jones Bri Denton does not have any active plans of the following types: Oncology Chemotherapy Treatment, Oncology Treatment (2), Oncology Treatment (3), Oncology Supportive Care, Specialty InfusionTreatment, Blood Products, BMT, Hematology Allergies Allergen Reactions Adhesive Redness burn Current Facility-Administered Medications: acetaminophen (TYLENOL) tablet 650 mg, 650 mg, oral, Q4H PRN, Wilbert Strickland MD acyclovir (ZOVIRAX) tablet 400 mg, 400 mg, oral, TID, Francis Gordon MD, 400 mg at 07/29/242040 amikacin (AMIKIN) 900 mg in sodium chloride 0.9% 36 mL (25 mg/mL) IV syringe, 15 mg/kg, intravenous, Once per day on Saturday, Caroline Maria PA, Stopped at 07/29/24 1040 ascorbic acid (VITAMIN C) tablet 500 mg, 500 mg, oral, Daily, Wilbert Strickland MD, 500 mg at 07/29/24908 atorvastatin (LIPITOR) tablet 40 mg, 40 mg, oral, Daily, Wilbert Strickland MD, 40 mg at 07/29/24909 azithromycin (ZITHROMAX) tablet 500 mg, 500 mg, oral, Daily, Caroline Maria PA, 500 mg at 07/29/24908 [Held by Provider] carvediloL (COREG) tablet 3.125 mg, 3.125 mg, oral, BID with meals (bkfst, dinner), Caroline Maria PA, 3.125 mg at 07/28/24 1734 cholecalciferol (VITAMIN D-3) capsule 2,000 Units, 2,000 Units, oral, Marco A COLLINS Mark Alan, MD, 2,000 Units at 07/29/24908 clopidogreL (PLAVIX) tablet 75 mg, 75 mg, oral, Daily, Francis Gordon MD, 75 mg at 07/29/24909 cyanocobalamin (Vitamin B-12) tablet 1,000 mcg, 1,000 mcg, oral, QAM, Wilbert Strickland MD, 1,000 mcg at 07/29/24 09 dextrose gel in packet 15 g, 15 g, oral, Q15 Min PRN OR dextrose (D10W) 10% bolus 250 mL, 250 mL, intravenous, Q15 Min PRN, Wilbert Strickland MD ethambutoL (MYAMBUTOL) tablet 1,200 mg, 1,200 mg, oral, Daily, Wilbert Strickland MD, 1,200 mg at 07/29/24 0909 wmnbnugnwcn-tdcxczdll-bfzhaxrd (TRELEGY ELLIPTA) 200-62.5-25 mcg inhaler 1 puff, 1 puff, inhalation, Daily, Octavia Lemus MD, 1 puff at 07/29/24 09 [Held by Provider] furosemide (LASIX) tablet 20 mg, 20 mg, oral, Daily, Caroline Maria PA,20 mg at 07/28/24 08 gabapentin (NEURONTIN) capsule 400 mg, 400 mg, oral, TID, Francis Gordon MD, 400 mg at 07/29/242039 glucagon injection 1 mg, 1 mg, intramuscular, Q30 Min PRN, Wilbert Strickland MD guaiFENesin ER (MUCINEX) extended release tablet 600 mg, 600 mg, oral, BID, Wilbert Strickland MD, 600 mg at 07/29/242039 HYDROmorphone (DILAUDID) injection 0.5 mg, 0.5 mg, intravenous, Q4H PRN, Wilbert Strickland MD, 0.5 mg at 07/24/24410 insulin glargine (LANTUS, SEMGLEE) 100 unit/mL injection 9 Units, 0.15 Units/kg, subcutaneous, Nightly, Stephani Reddy MD, 9 Units at 07/29/242042 insulin lispro (HumaLOG, ADMELOG) 100 unit/mL injection 0-4 Units, 0-4 Units, subcutaneous, Nightly, Stephani Reddy MD insulin lispro (HumaLOG, ADMELOG) 100 unit/mL injection 0-5 Units, 0-5 Units, subcutaneous, TID with meals, Stephani Reddy MD, 1 Units at 07/29/24 182 insulin lispro (HumaLOG, ADMELOG) 100 unit/mL injection 3 Units, 0.05 Units/kg, subcutaneous, TID with meals, Stephani Reddy MD, 3 Units at 07/29/24 182 ipratropium-albuteroL (DUO-NEB) 0.5-2.5 mg/3 mL nebulizer solution 3 mL, 3 mL, nebulization, Q4H PRN (RT), Wilbert Strickland MD, 3 mL at 07/29/24 1412 isavuconazonium (CRESEMBA) capsule 372 mg, 372 mg, oral, TID, Francis Gordon MD, 372 mg at 07/29/242040 [START ON 07/31/2024] isavuconazonium (CRESEMBA) capsule 372 mg, 372 mg, oral, Daily, Francis Gordon MD lidocaine (PF) (XYLOCAINE) 10 mg/mL (1 %) preservative free injection 10-20 mg, 1-2 mL, subcutaneous, Once, Francis Gordon MD [Held by Provider] losartan (COZAAR) tablet 12.5 mg, 12.5 mg, oral, Daily, Francis Gordon MD, 12.5 mg at 07/28/24 173 montelukast (SINGULAIR) tablet 10 mg, 10 mg, oral, Nightly, Wilbert Strickland MD, 10 mg at 07/29/242040 mycophenolate mofetil (CELLCEPT) tablet 1,000 mg, 1,000 mg, oral, BID, Caroline Maria PA, 1,000 mg at 07/29/242039 nicotine (NICODERM CQ) 21 mg patch 24 hour 1 patch, 1 patch, transdermal, Daily, Wilbert Strickland MD, 1 patch at 07/29/24 09 ondansetron (ZOFRAN) injection 4 mg, 4 mg, intravenous, Q6H PRN, Wilbert Strickland MD oxyCODONE (ROXICODONE) tablet 5 mg, 5 mg, oral, Q4H PRN, Wilbert Strickland MD, [address] (PROTONIX) extended release tablet 40 mg, 40 mg, oral, BID, Wilbert Strickland MD, 40 mg at 07/29/242040 ramelteon (ROZEREM) tablet 8 mg, 8 mg, oral, Nightly PRN, Wilbert Strickland MD, 8 mg at 07/28/242106 [Held by Provider] rivaroxaban (XARELTO) tablet 20 mg, 20 mg, oral, Daily, Wilbert Strickland MD, 20 mg at 07/28/24 08 sodium chloride 0.9% flush 5-10 mL, 5-10 mL, intra-catheter, Q12H ROSA MARIA, Francis Gordon MD, 10 mL at 07/29/242041 sodium chloride 0.9% flush 5-20 mL, 5-20 mL, intra-catheter, PRN, Francis Gordon MD [Held by Provider] spironolactone (ALDACTONE) tablet 25 mg, 25 mg, oral, Daily, Caroline Maria PA, 25 mg at 07/28/24 0807 tacrolimus immediate-release capsule 0.5 mg, 0.5 mg, oral, Every other day, Wilbert Strickland MD, 0.5 mg at 07/28/24 0806 Objective Vitals: 24hr Min/Max: Temp Min: 36.8 ??C (98.2 ??F) Max: 37.7 ??C (99.9 ??F) Pulse Min: 76 Max: 97 BP Min: 64/34 Max: 100/36 Resp Min: 16 Max: 20 SpO2 Min: 89 % Max: 100 % Most Recent : Vitals: 07/29/241954 BP: 97/54 BP Location: Right arm Patient Position: Sitting Pulse: 88 Resp: 20 Temp: 37.2 ??C (99 ??F) TempSrc: Oral SpO2: 96% Weight: 61.6 kg (135 lb 11.2 oz) I/O last 2 completed shifts: In: 1571 [P.O.:1535; IV Piggyback:36] Out: 3300 [Urine:3300] Physical exam: Unless otherwise noted above General: Well appearing, NAD, appears stated age Skin: no rash, normal color and turgor HEENT: normocephalic, PERRLA, EOMI, no mucositis Abdomen: Soft, NTND, +BS Extremities: Atraumatic, acyanotic, no TTP, no edema Neuro: AAOx3, CN II-XI grossly intact, normal speech Psych: Appropriate mood, affect, and judgement. Lab/Radiology/Diagnostic Review: I have reviewed and interpreted the laboratory, radiologic, and diagnostic results from today. CBC: Recent Labs Lab Units 07/28/24 2221 WBC K/cumm 15.0* HEMOGLOBIN g/dL 10.2* HEMATOCRIT % 31.7* MCV fL 103.6* MCH pg 33.3 MCHC g/dL 32.2* RDW CV % 20.3* RDWSD fL 76.8* MPV fL 10.9 NEUTROS ABS K/cumm 10.4* LYMPHS PCT % 14.9 CMP: Recent Labs Lab Units 07/29/24 1705 07/29/24 0729 07/28/24 2221 SODIUM mmol/L -- -- 137 POTASSIUM PLASMA mmol/L -- -- 5.4* CO2 mmol/L -- -- 41* BUN SERUM mg/dL -- -- 20 GLUCOSE mg/dL -- -- 178 POC GLUCOSE MONITOR mg/dL 198 < > -- CREATININE mg/dL -- -- 0.70* CALCIUM mg/dL -- -- 9.1 CHLORIDE mmol/L -- -- 91* ALBUMIN g/dL -- -- 3.1* AST Units/L -- -- 44 ALT Units/L -- -- 28 ALK PHOS Units/L -- -- 113 BILIRUBIN TOTAL mg/dL -- -- 0.2 TOTAL PROTEIN g/dL -- -- 6.8 ANIONGAP mmol/L -- -- 5 < > = values in this interval not displayed. LDH: Uric Acid: Tacrolimus level: Recent Labs Lab Units 07/28/24 0740 TACROLIMUS RANDOM ng/mL 1.6 Sirolimus level: Cyclosporine level: PT: Recent Labs Lab Units 07/24/24 0028 PROTIME (PT) sec 36.7* PTT: Recent Labs Lab Units 07/24/24 0028 APTT sec 36 Radiology: Transthoracic Echo (TTE) Complete W Doppler/CF Patient name: Bri Jones Date of test: 07/24/2024 Type of test: TTE w/Doppler Hospital #: 0 Date of : 1965 (M) Plastic Surgery Coordinator: Mariah Peters RDCS, [facility] Referring Physician: CAROLINE MARIA MD Contrast Agent: 0.8 ml Optison Administered, (2.2 ml wasted). Contrast Administered by: Sidra Garcia RN Supervised/Interpreted by: Bladimir Henao MD Diagnosis: Location: [facility] Reason for test: H/o CHF, worsening BNP and SOB MV Structure: Normal, MV Motion: Normal, Mitral Annulus: Normal AV Structure: tricuspid and is Normal, AV Motion: Normal Aotic root: Normal, TM: Normal, PV: Normal Valvular Vegetations: none seen, Mass/Thrombi: none seen RA: Normal Measurements: M-Mode Normal Aotic Root: <3.8 LA: <4.0 RV: <2.8 LV(ED): <5.7 LV(ES): Variable 2D Linear Normal Aotic Root: 3.1 cm <4.0 Ao Indexed: 1.8 cm/M2 <2.0 LA: <4.0 RV: 5.0 cm <4.2 LV(ED): 4.4 cm <5.9 LV(ES): 3.5 cm <4.0 2D Vol. Normal Indexed Indexed Normal RA: 30.0 ml 17.1 ml/M2 11-39 LA: 43.0 ml 24.5 ml/M2 16-34 RV: <12.7 LV(ED): 114.0 ml 62-150 64.9 ml/M2 <75 LV(ES): 21-61 <32 3D Vol. Indexed Normal LV(ED): <75 LV(ES): <32 LV EF: 30 % (Normal: >=52%) LV Septum: 0.9 cm (Normal: <1.0 cm) Wall Motion Scoring (1=Normal 2=Hypo 3=Akinetic 4=Dyskin./Aneurysm 0=Not visualized) Parasternal Long [place]:MAS=2 BAS=2 MIL=2 KEN=2 Parasternal Short [place]:MAS=2 MIS=2 TN=2 MIL=2 MAL=2 MA=2 Apical 4 Chambers:=2 MIS=2 BIS=2 BAL=2 MAL=2 AL=2 AC=2 Apical 2 Chambers:AI=2 TN=2 BI=2 BA=2 MA=2 AA=2 AC=2 LV Global Longitudinal Strain: -8.8% (Normal <-17%) RV Global Longitudinal Strain: -12% (Normal <-17%) LV Function: Moderate Global reduction in LV Ejection Fraction (EF=30-40%); EF 30%via visual assessment RV Function: mild global hypokinesis Septal Motion: Normal Pericardial Effusion: Trivial Atrial Septum: Normal DOPPLER/COLOR FLOW DOPPLER RESULTS: Diastolic Function: Grade II, increased mean LA pres. Tricuspid Valve: normal TV Pulmonic Valve: normal PV AV Regurgitation: No AR seen AV Stenosis: no AV Area: cm2 AV Pressure Gradient (mmHg): Mean: 0, Peak:0 MV Regurgitation: Mild-moderate MR MV Stenosis: no MS MV Area: cm2 MV Pressure Gradient (mmHg): Mean: 0 MV ERO: cm Regurg. Vol.: ml/beat Regurg. Frac.: % PA Pressure: 33+RA mmHg DOPPLER/COLOR FOLOW DOPPLER COMMENTS: No AR seen, Mild-moderate MR, no , no MS, normal TV, normal PV. Diastolic function: Grade II, increased mean LA pres. CONTRAST: 0.8 ml Optison Administered, (2.2 ml wasted). SUMMARY: TDS. Poor acoustic window. LV cavity size is normal with moderate global hypokinesis. LVEF visually estimated 30%. CI 1.07 l/min/m2. LA is normal. Mild RV cavity enlargement with moderate dysfunction. Mild-moderate MR. Grade II diastolic function characterized by elevated mean LA pressure. Estimated PA systolic pressure 33+RA(15) mmHg. Dilated inferior vena cava. Reduced global LV strain (-8.8%). Normal aorta. Changes noted. Confirmed on 07/24/2024 - 18:22:00 by Bladimir Henao MD By signing this report, the attending supervisor assembly room certifies that he or she has personally supervised and interpreted the echocardiogram and has reviewed and or edited and agrees with the written comments contained within the report. CT Body Outside Consult Narrative: EXAMINATION: RADIOLOGY CONSULTATION ON OUTSIDE IMAGING STUDY STUDY INITIALLY PERFORMED: 07/21/2024 at unknown. TYPE OF STUDY: Multiple CTA images of the chest with PE protocol are provided at the time of this interpretation. CONTRAST ROUTE: Contrast was administered via the intravenous route. The protocol was adequate to address the clinical question. The outside final report was not available at the time of this second opinion interpretation. 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 COMPARISON: CT chest with contrast dated 07/14/2024. FINDINGS: No central, segmental, or subsegmental pulmonary embolism. Mild coronary artery calcifications. There is mucous plugging and debris throughout the bilateral tracheobronchial trees, likely aspiration. There is a large cavity in the right lung apex with internal frond-like contents, not significantly changed. There is a general background of emphysema throughout the lungs. There are additional peribronchial vascular opacities, some of which are slightly improved from CT dated 07/14/2024, for instance in the medial right upper lobe, but remain persistent. There are additional irregular nodules throughout the lungs, which are predominantly new when compared with the 05/28/2024 exam. There are no new pulmonary nodule seen. No pleural effusion or pneumothorax. No acute CT findings in the imaged upper abdomen. Severe atherosclerosis of the upper abdominal aorta. No suspicious osseous lesions. Impression: 1. 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 These findings are not significant changed from CT dated 07/14/2024, but remain worse than CT dated 05/28/2024. 2. Lower lobe mucus plugging with nodularity suspicious for superimposed aspiration pneumonia, which is new from CT dated 05/28/2024. The findings, conclusions and recommendations within this report do not replace the initial findings, conclusions and recommendations made at the facility where the study was performed based upon the imaging and clinical condition at that time. Comparison with the prior report and clinical history is necessary. The provided images may or may not represent the [employer] source data set and thus may contain changes that may lower the accuracy of this second-opinion interpretation. Dictated by: Slick Guzman M.D. The radiology attending physician has personally reviewed this study, and had reviewed and/or edited this written report and agrees with it. Electronically signed by: Cameron Lenz M.D. XR Outside Reference Narrative: EXAMINATION: Images For Reference Purposes Only Impression: These images are for Reference purposes only and have not been reviewed by [facility] Radiology. There will be no report generated by a [facility] Radiologist. Assessment/Plan #cGVHD -continue tacrolimus, MMF -OI ppx with acyclovir. Switch voriconazole to isavuconazonium givne prolonged QTc #MAC pulmonary infection -transplant ID on board -on amicakin (peak on 07/29/2024), azithromycin, ethambutol -needs ID follow up on discharge -PICC today, HH to start on Saturday for home infusion #New HFrEF - EF 30% -gentle diuresis -cardiology consulted -uptitrate GDMT as able The patient was directly discussed with hospital medicine x ray consultant caring for patient and I personally reviewed their note. Cruz Pederson MD, [employer] Division of Oncology, Section of Leukemia and Bone Marrow Transplant [facility] [employer] in [place] * Francis Gordon MD - 07/29/2024 4:14 PM CDT Hospitalist Consult Daily Progress Note as requested by BMT Physician Division of Hospital Medicine Name: Bri Jones : 1965 Today's Date: July 29, 2024 Age: 58 y.o. male Admission: 07/23/2024 Bed: [id number] LOS: 6 days BMT Day: Subjective Chief complaint: BP noted 90/40 today after starting losartan yesterday in addition to aldactone, coreg, lasix. Patient denied any light-headedness or dizziness. No fevers. Interval History Coreg, losartan, aldactone, lasix were held this AM Objective Scheduled Meds PRN Meds Infusions acyclovir, 400 mg, oral, TID amikacin, 15 mg/kg, intravenous, Once per day on Saturday ascorbic acid, 500 mg, oral, Daily atorvastatin, 40 mg, oral, Daily azithromycin, 500 mg, oral, Daily [Held by Provider] carvediloL, 3.125 mg, oral, BID with meals (bkfst, dinner) cholecalciferol, 2,000 Units, oral, QAM clopidogreL, 75 mg, oral, Daily cyanocobalamin, 1,000 mcg, oral, QAM ethambutoL, 1,200 mg, oral, Daily lwojdflwjho-dfvjmsrvg-nwrqfqnk, 1 puff, inhalation, Daily [Held by Provider] furosemide, 20 mg, oral, Daily gabapentin, 300 mg, oral, QID guaiFENesin ER, 600 mg, oral, BID insulin glargine, 0.15 Units/kg, subcutaneous, Nightly insulin lispro, 0-4 Units, subcutaneous, Nightly insulin lispro, 0-5 Units, subcutaneous, TID with meals insulin lispro, 0.05 Units/kg, subcutaneous, TID with meals isavuconazonium, 372 mg, oral, TID [START ON 07/31/2024] isavuconazonium, 372 mg, oral, Daily lidocaine, 1-2 mL, subcutaneous, Once [Held by Provider] losartan, 12.5 mg, oral, Daily montelukast, 10 mg, oral, Nightly mycophenolate mofetil, 1,000 mg, oral, BID nicotine, 1 patch, transdermal, Daily pantoprazole DR, 40 mg, oral, BID [Held by Provider] rivaroxaban, 20 mg, oral, Daily sodium chloride 0.9%, 5-10 mL, intra-catheter, Q12H ROSA MARIA [Held by Provider] spironolactone, 25 mg, oral, Daily tacrolimus, 0.5 mg, oral, Every other day acetaminophen, 650 mg, oral, Q4H PRN dextrose, 15 g, oral, Q15 Min PRN OR dextrose, 250 mL, intravenous, Q15 Min PRN glucagon, 1 mg, intramuscular, Q30 Min PRN HYDROmorphone, 0.5 mg, intravenous, Q4H PRN ipratropium-albuteroL, 3 mL, nebulization, Q4H PRN (RT) ondansetron, 4 mg, intravenous, Q6H PRN oxyCODONE, 5 mg, oral, Q4H PRN ramelteon, 8 mg, oral, Nightly PRN sodium chloride 0.9%, 5-20 mL, intra-catheter, PRN Vitals Most Recent Vitals: T 37.1 ??C (98.7 ??F), HR 85, BP 94/53, RR 16, SpO2 96 %. 24hr Min/Max: Temp Min: 37 ??C (98.6 ??F) Max: 37.7 ??C (99.9 ??F) Pulse Min: 76 Max: 97 BP Min: 64/34 Max: 103/56 Resp Min: 16 Max: 16 SpO2 Min: 89 % Max: 100 % Intake/Output Summary (Last 24 hours) at 07/29/2024 1614 Last data filed at 07/29/2024 1345 Gross per 24 hour Intake 1071 ml Output 3050 ml Net -1979 ml ICE Score: No data found. Baseline ICE Score: CRS and ICANS Grading: No data found. Physical Exam Vitals reviewed. Constitutional: General: He is not in acute distress. Appearance: Normal appearance. HENT: Head: Normocephalic. Mouth/Throat: Mouth: Mucous membranes are moist. Eyes: General: No scleral icterus. Extraocular Movements: Extraocular movements intact. Conjunctiva/sclera: Conjunctivae normal. Cardiovascular: Rate and Rhythm: Normal rate and regular rhythm. Pulses: Normal pulses. Heart sounds: Normal heart sounds. Pulmonary: Effort: Pulmonary effort is normal. Breath sounds: Normal breath sounds. Abdominal: General: Abdomen is flat. There is no distension. Palpations: Abdomen is soft. Tenderness: There is no abdominal tenderness. Musculoskeletal: Right lower leg: No edema. Left lower leg: No edema. Skin: General: Skin is warm and dry. Neurological: General: No focal deficit present. Mental Status: He is alert and oriented to person, place, and time. Mental status is at baseline. Psychiatric: Mood and Affect: Mood normal. Behavior: Behavior normal. Judgment: Judgment normal. Lines, Drains, Airways PICC Double Lumen 07/29/24 Non-tunneled Power #1 Red, Right Basilic;Upper arm (Active) Labs/Diagnostic Review CBC: Recent Labs Lab Units 07/28/24 2221 WBC K/cumm 15.0* HEMOGLOBIN g/dL 10.2* HEMATOCRIT % 31.7* MCV fL 103.6* MCH pg 33.3 MCHC g/dL 32.2* RDW CV % 20.3* RDWSD fL 76.8* MPV fL 10.9 NEUTROS ABS K/cumm 10.4* LYMPHS PCT % 14.9 CMP: Recent Labs Lab Units 07/29/24 1140 07/29/24 0729 07/28/24 2221 SODIUM mmol/L -- -- 137 POTASSIUM PLASMA mmol/L -- -- 5.4* CO2 mmol/L -- -- 41* BUN SERUM mg/dL -- -- 20 GLUCOSE mg/dL -- -- 178 POC GLUCOSE MONITOR mg/dL 170 < > -- CREATININE mg/dL -- -- 0.70* CALCIUM mg/dL -- -- 9.1 CHLORIDE mmol/L -- -- 91* ALBUMIN g/dL -- -- 3.1* AST Units/L -- -- 44 ALT Units/L -- -- 28 ALK PHOS Units/L -- -- 113 BILIRUBIN TOTAL mg/dL -- -- 0.2 TOTAL PROTEIN g/dL -- -- 6.8 ANIONGAP mmol/L -- -- 5 < > = values in this interval not displayed. LDH: INR - Uric Acid:- Tacrolimus level:1.6 Sirolimus level: - Cyclosporine level: - (Labs above are the most recent result obtained in the last 24 hours unless otherwise specified. For additional labs/trends, see Epic.) I have reviewed the laboratory results. Imaging Review No results found. Assessment/Plan MAC infection: Noted to have bilateral R>L cavitary lung consolidation in May 2024. Bronch 06/16/24 was positive for mycobacterium avium and Stenotrophomonas. Stenotrophomonas was treated with minocycline. Patient started on ethambutol on azithromycin 07/07/24. -CT chest 07/24/24 with concern for refractory infection and progression -ID consulted. Continue amikacin, azithro, ethambutol. Amikacin adjusted to 700 mg based on peak levels. -EKG 07/27/24 showed Qtc 517 on amikacin + vori. Vori was switched to cresemba 07/29/24 -baseline audiology exam performed 07/27/24 -PICC placement 07/29/24 for amikacin access Hypoxemia: -secondary to MAC infection Acute systolic heart failure: new depressed EF of 30% seen on TTE 07/24/24 -Cards consulted. Appreciate recs -Losartan, coreg, aldactone, lasix held for hypotension -continue plavix for history of RCA STEMI -resume xarelto after PICC placement AML: in remission -GVHD ppx: tacro every other day, mycophenolate -OI px: cresemba (prolonged QT on vori + amikacin), acyclovir History of PE: DVT and PE in 2012. Had IJ DVT 2017 -resume xarelto after PICC placement COPD: -continue trelegy ellipta & PRN duonebs Code status : Full Code Diet : Adult Diet Restricted; Mechanical Soft; Consistent Carbohydrate PT/OT Dispo Rec : PT Recommendation/Plan: Home Health PT, Home with intermittent assist / OT Recommendation: (S) Home with intermittent assist Supplementary Attestation Today, I am treating the patient for MAC which is in severe exacerbation, progression, or experiencing treatment side effects as evidenced by CT scan, as described in the note. Independently interpreted CT scan which shows cavitary lung consolidation. Discussed management of MAC with ID & Dr. Pederson. The patient is being intensively monitored for drug toxicity from amikacin by checking drug levels. Francis Gordon MD * Marry Abreu RN - 07/29/2024 1:18 PM CDT Prior authorization requested for cresemba 186 mg capsules - Take 2 capsules = 372 mg by mouth daily QTY 60 for 30 day supply, 0 refills. [employer] Rx ID [id number]. Diagnosis: C92.01 AMLin remission and prophylaxis of choice due to QT prolongation I45.81 with voriconazole. Faxed at 1:50 PM to [employer] appeals department at pending response. Reference # [id number]. * Zita Teixeira OT - 07/29/2024 9:51 AM CDT Occupational Therapy Progress Note NOTE: This is a summary note of the feliz components of the treatment session. For full details, review chart for all flowsheets documented on by this occupational therapy clinician on this date. Vitalsigns documented in vital signs flowsheet. Care plan progress documented in Care Plan Activity. For questions, please review the treatment team and contact the occupational therapist currently assigned to this patient. If an occupational therapist is not assigned to this patient, please call [phone]. 07/29/24 0951 General Session Type Treatment OT Received On 07/29/24 Safe Environment Arm band checked;Patient found in supine;Session completed bedside;Gait belt utilized for all out of bed mobility Subjective Agreeable to Therapy Family/Caregiver Present No Precautions Precautions Fall risk Pain Assessment Pain Assessment No/denies pain Static Sitting Balance Static Sitting-Balance Support No upper extremity supported;Feet supported Static Sitting-Sitting Surface Bed Static Sitting-Level of Assistance Independent Dynamic Sitting Balance Dynamic Sitting-Balance Support No upper extremity supported;Feet supported Dynamic Sitting-Balance Lateral lean;Forward lean Dynamic Sitting-Sitting Surface (toilet) Dynamic Sitting-Level of Assistance Close supervision Static Standing Balance Static Standing-Balance Support No upper extremity supported Static Standing-Standing Surface Floor Static Standing-Level of Assistance Contact guard Dynamic Standing Balance Dynamic Standing-Balance Support No upper extremity supported Dynamic Standing-Balance Lateral lean;Forward lean Dynamic Standing-Standing Surface Floor Dynamic Standing-Level of Assistance Contact guard ADL ADLS (WDL) X Grooming Grooming: Where assessed Edge of bed (d/t orthostatic hypertension) Grooming: Level of assistance Moderate Assist (set-up sitting EOB, mod A balacne) Toileting Toileting: Where assessed Bedside Commode Toileting: Level of assistance Standby Assist Toileting: Assistance with Perineal hygiene;Balance (pt completed chris-cares seated on toilet) Bed Mobility 1 Bed Mobility From 1 Supine Bed Mobility Type 1 To and from Bed Mobility to 1 Edge of bed Level of Assistance 1 Standby Assist Transfer 1 Transfer From 1 Sit Transfer Type 1 To and from Transfer to 1 Stand Technique 1 Sit to stand;Stand to sit Transfer Device 1 Hand held assist Transfer Level of Assistance 1 Contact Guard Assist Toilet Transfers Toilet Transfer From Bed Toilet Transfer Type To and from Toilet Transfer to Standard bedside commode Toilet Transfer Technique Stand pivot Toilet Transfer: Equipment Hand hold Toilet Transfers Contact guard Cognition Arousal/Alertness Alert;Appropriate responses to stimuli Attention Span Age appropriate;Appears intact Memory Appears intact Current communication Appears Intact Orientation Oriented X4 (person, place, time, situation) Following Commands Follows all commands and directions without difficulty Safety Judgment Good awareness of safety precautions Awareness of Errors Good awareness of errors made Insight Fully aware of deficits Problem Solving Able to problem solve independently Compliance/Behavior Easy to engage Perseveration Not present Other Comments Comments Bri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 - Ribs, Lower Back, Midaxillary Line: Patient not able to participate Muscle Loss [place] - Temporalis Muscle: Hollowing, scooping, depression Clavicle Bone Region - Pectoralis Major, Deltoid, Trapezius Muscles: Visible in male, some protrusion in female Clavicle and Acromion Bone Region - Deltoid Muscle: Acromion process may slightly protrude Scapular Bone Region - Trapezius, Supraspinus, Infraspinus Muscles: Patient not able to participate Dorsal Hand - Interosseous Muscle: Slightly depressed Anterior Thigh and Patellar Region - Quadricep Muscle: Minimal to no muscle tone/resistance Posterior Calf Region - Gastrocnemius Muscle: Not well developed NUTRITION DIAGNOSIS: Nutrition Diagnosis 1: Protein-Calorie Malnutrition - Severe Related to: Chronic illness/injury Evidenced by: Physical finding, Weight loss INTERVENTION(S): Summary: Assess for nutrition changes, Education, nutrition, Encouragement, Initial assessment, Meals and snacks, Follow up per policy, Medical food supplement, NFPE, Regular weights Discussed the importance of consuming adequate calories and protein to help prevent weight loss andpreserve lean body mass. Encouraged continued intake as tolerated. Encouraged continued use of Glucerna to improve protein/calorie intake. RD following. Hannah Ennis RD GOAL(S): Adequate nutrition to meet estimated needs by next assessment MONITORING/EVALUATION: Appetite, PO intake, Blood glucoses, Diet advancement, Diet-related questions, Labs, Plan of care, Supplement tolerance, Weight changes Diet Instructions Malnutrition is an imbalance between the nutrients your body needs to function and the nutrients itgets. Nutrients include protein, fat, carbohydrates, vitamins, and minerals. The following recommendations can help you take in more calories every day to stop the weight loss and restore your appetite. Calorie-Boosting Tips: Eat 3 meals and 3 snacks a daily. Drink only small amounts of liquids at meals, which can make you feel full faster. Drink supplements or shakes if you do not eat at least half of your meal or with a snack between meals. Consider drinking nutrition supplements, such as Ensure or Boost to provide additional calories andprotein. Drink supplements or shakes with a snack between meals instead of at meals. Set up schedule of times to eat or set timer for reminders to eat. Eat largest meal when appetite is strongest. Increase the portion of milk to drink and change to whole milk if able for more calories. Eat small meals more frequently throughout the day. Have favorite snacks available at all times and keep visual for reminders to eat. Make the meal experience pleasant--for example, eat with others, increase aesthetic appeal. Add butter or margarine to soups, veggies, potatoes, cooked cereal, pasta, bread, and crackers. Spread cream cheese on bread, rolls, bagels, or use it as a fruit dip. Add raisins, dates, or chopped nuts to hot cereal and desserts. Top meat, vegetables, or bread with gravy. Mix fruit, nuts, granola, honey, or dry cereal with yogurt. Protein-Boosting Tips: Add dry milk powder to milk, cereal, soup, gravy, casseroles, and desserts. Use milk to replace water in recipes. Add meat to soups, casseroles, pasta dishes, or vegetables. Mix cheese in sauces, soups, or vegetables. Melt cheese over bread, vegetables, potatoes, on sandwiches. Add shredded cheese to soups and salads. Eat peanut butter on crackers, bread, toast, waffles, or celery sticks. May also add to milkshakes or desserts. Add nuts to desserts or eat as snacks. Have yogurt and/or cottage cheese as a snack or paired with fruit. Consider drinking nutrition supplements, such as Ensure or Boost to provide additional calories andprotein. Mix protein powder, nut butter, almond/nut milk, non-fat dry milk, or [place] yogurt to shakes and smoothies. Eat a well-balanced diet. A well-balanced diet helps you get the vitamins and minerals that your body needs. Include grains, fruit and vegetables, dairy and protein servings at every meal. Your health care provider may prescribe a multivitamin/mineral supplement if nutritional deficiencies are suspected. If so, make sure you take them as prescribed. Consider drinking an oral nutrition supplement such as Ensure, Glucerna, or Boost 1-2 times daily as able to increase calories and protein intake. Oral nutrition supplements can be bought online, at grocery stores, and pharmacies. Find support. If you cannot buy or prepare the right kinds of foods, talk to your healthcare provider. Ask for information about community programs that can help you. [facility] ask about seeing a Registered Dietitian. * Francis Gordon MD - 07/28/2024 4:37 PM CDT Hospitalist Consult Daily Progress Note as requested by [facility] Physician Division of Hospital Medicine Name: Bri Jones : 1965 Today's Date: July 28, 2024 Age: 58 y.o. male Admission: 07/23/2024 Bed: [id number] LOS: 5 days BMT Day: Subjective Chief complaint: Patient reports breathing feels okay. Interval History No acute events overnight Objective Scheduled Meds PRN Meds Infusions acyclovir, 400 mg, oral, Q8H amikacin, 15 mg/kg, intravenous, Once per day on Saturday ascorbic acid, 500 mg, oral, Daily atorvastatin, 40 mg, oral, Daily azithromycin, 500 mg, oral, Daily carvediloL, 3.125 mg, oral, BID with meals (bkfst, dinner) cholecalciferol, 2,000 Units, oral, QAM cyanocobalamin, 1,000 mcg, oral, QAM ethambutoL, 1,200 mg, oral, Daily pwivgaswrxt-ofjxulpwa-mggqncrq, 1 puff, inhalation, Daily furosemide, 20 mg, oral, Daily gabapentin, 300 mg, oral, QID guaiFENesin ER, 600 mg, oral, BID insulin glargine, 0.15 Units/kg, subcutaneous, Nightly insulin lispro, 0-4 Units, subcutaneous, Nightly insulin lispro, 0-5 Units, subcutaneous, TID with meals insulin lispro, 0.05 Units/kg, subcutaneous, TID with meals montelukast, 10 mg, oral, Nightly mycophenolate mofetil, 1,000 mg, oral, BID nicotine, 1 patch, transdermal, Daily pantoprazole DR, 40 mg, oral, BID rivaroxaban, 20 mg, oral, Daily spironolactone, 25 mg, oral, Daily tacrolimus, 0.5 mg, oral, Every other day voriCONAZOLE, 200 mg, oral, BID acetaminophen, 650 mg, oral, Q4H PRN dextrose, 15 g, oral, Q15 Min PRN OR dextrose, 250 mL, intravenous, Q15 Min PRN glucagon, 1 mg, intramuscular, Q30 Min PRN HYDROmorphone, 0.5 mg, intravenous, Q4H PRN ipratropium-albuteroL, 3 mL, nebulization, Q4H PRN (RT) ondansetron, 4 mg, intravenous, Q6H PRN oxyCODONE, 5 mg, oral, Q4H PRN ramelteon, 8 mg, oral, Nightly PRN Vitals Most Recent Vitals: T 36.8 ??C (98.2 ??F), HR 73, BP 102/56, RR 16, SpO2 98 %. 24hr Min/Max: Temp Min: 36.3 ??C (97.4 ??F) Max: 36.8 ??C (98.2 ??F) Pulse Min: 69 Max: 90 BP Min: 100/61 Max: 131/86 Resp Min: 16 Max: 20 SpO2 Min: 97 % Max: 100 % Intake/Output Summary (Last 24 hours) at 07/28/2024 1637 Last data filed at 07/28/2024 1627 Gross per 24 hour Intake 1540 ml Output 3080 ml Net -1540 ml ICE Score: No data found. Baseline ICE Score: CRS and ICANS Grading: No data found. Physical Exam Vitals reviewed. Constitutional: General: He is not in acute distress. Appearance: Normal appearance. HENT: Head: Normocephalic. Mouth/Throat: Mouth: Mucous membranes are moist. Eyes: General: No scleral icterus. Extraocular Movements: Extraocular movements intact. Conjunctiva/sclera: Conjunctivae normal. Cardiovascular: Rate and Rhythm: Normal rate and regular rhythm. Pulses: Normal pulses. Heart sounds: Normal heart sounds. Pulmonary: Effort: Pulmonary effort is normal. Breath sounds: Normal breath sounds. Abdominal: General: Abdomen is flat. There is no distension. Palpations: Abdomen is soft. Tenderness: There is no abdominal tenderness. Musculoskeletal: Right lower leg: No edema. Left lower leg: No edema. Skin: General: Skin is warm and dry. Neurological: General: No focal deficit present. Mental Status: He is alert and oriented to person, place, and time. Mental status is at baseline. Psychiatric: Mood and Affect: Mood normal. Behavior: Behavior normal. Judgment: Judgment normal. Lines, Drains, Airways Peripheral IV 07/26/24 22 G Anterior;Proximal;Right Forearm (Active) Labs/Diagnostic Review CBC: Recent Labs Lab Units 07/27/242027 WBC K/cumm 12.0* HEMOGLOBIN g/dL 10.2* HEMATOCRIT % 31.6* MCV fL 102.6* MCH pg 33.1 MCHC g/dL 32.3 RDW CV % 19.4* RDWSD fL 71.3* MPV fL 11.3 NEUTROS ABS K/cumm 9.4* LYMPHS PCT % 10.0 CMP: Recent Labs Lab Units 07/28/24 1146 07/28/24 0731 07/27/248 SODIUM mmol/L -- -- 138 POTASSIUM PLASMA mmol/L -- -- 4.7 CO2 mmol/L -- -- 42* BUN SERUM mg/dL -- -- 17 GLUCOSE mg/dL -- -- 93 POC GLUCOSE MONITOR mg/dL 263* < > 129 CREATININE mg/dL -- -- 0.72* CALCIUM mg/dL -- -- 9.3 CHLORIDE mmol/L -- -- 90* ALBUMIN g/dL -- -- 3.7 AST Units/L -- -- 38 ALT Units/L -- -- 30 ALK PHOS Units/L -- -- 127 BILIRUBIN TOTAL mg/dL -- -- 0.2 TOTAL PROTEIN g/dL -- -- 7.3 ANIONGAP mmol/L -- -- 6 < > = values in this interval not displayed. LDH: INR - Uric Acid:- Tacrolimus level:1.6 Sirolimus level: - Cyclosporine level: - (Labs above are the most recent result obtained in the last 24 hours unless otherwise specified. For additional labs/trends, see Epic.) I have reviewed the laboratory results. Imaging Review No results found. Assessment/Plan MAC infection: -ID consulted. Continue amikacin, azithro, ethambutol. Monitoring amikacin peaks. 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 Appreciate recs -Losartan, coreg, aldactone, lasix -continue plavix for history of RCA STEMI -hold xarelto for need for line placement for antibiotics AML: in remission -GVHD ppx: tacro every other day, mycophenolate -OI px: vori, acyclovir History of PE: in 2012 -hold xarelto for need for line placement for antibiotics Code status : Full Code Diet : Adult Diet Restricted; Mechanical Soft; Consistent Carbohydrate PT/OT Dispo Rec : PT Recommendation/Plan: Home Health PT, Home with intermittent assist / OT Recommendation: [facility] (pending further evaluation of mobility) Supplementary Attestation Today, I am treating the patient for MAC which is in severe exacerbation, progression, or experiencing treatment side effects as evidenced by CT scan, as described in the note. Independently interpreted CT scan which shows cavitary lung consolidation. Discussed management of MAC with ID & Dr. Pederson. The patient is being intensively monitored for drug toxicity from amikacin by checking drug levels. Francis Gordon MD * Cruz Pederson MD - 07/27/2024 9:24 PM CDT BMT Progress Note BMT Day: Chief Complaint: Patient is a 58 y.o. male with chief complaint of worsening SOB. Subjective Patient reports that he still feels not quite at his baseline and is on 4L now at rest, with 3L being his baseline at home. Chest still feels abnormal and wet and he feels SOB when he lies down, but no LE swelling. Appetite okay. Dry mouth today. Active Treatment & Therapy Plans for Bri Jones Robert A does not have any active plans of the following types: Oncology Chemotherapy Treatment, Oncology Treatment (2), Oncology Treatment (3), Oncology Supportive Care, Specialty InfusionTreatment, Blood Products, BMT, Hematology Allergies Allergen Reactions Adhesive Redness burn Current Facility-Administered Medications: acetaminophen (TYLENOL) tablet 650 mg, 650 mg, oral, Q4H PRN, Wilbert Strickland MD acyclovir (ZOVIRAX) tablet 400 mg, 400 mg, oral, Q8H, Wilbert Strickland MD, 400 mg at 07/27/24 1610 amikacin (AMIKIN) 900 mg in sodium chloride 0.9% 36 mL (25 mg/mL) IV syringe, 15 mg/kg, intravenous, Once per day on Saturday, Caroline Maria PA, Stopped at 07/27/24 0937 ascorbic acid (VITAMIN C) tablet 500 mg, 500 mg, oral, Daily, Wilbert Strickland MD, 500 mg at 07/27/24 0808 atorvastatin (LIPITOR) tablet 40 mg, 40 mg, oral, Daily, Wilbert Strickland MD, 40 mg at 07/27/24 0808 azithromycin (ZITHROMAX) tablet 500 mg, 500 mg, oral, Daily, Caroline Maria PA, 500 mg at 07/27/24 0808 carvediloL (COREG) tablet 3.125 mg, 3.125 mg, oral, BID with meals (bkfst, dinner), Caroline Maria PA, 3.125 mg at 07/27/24 1714 cholecalciferol (VITAMIN D-3) capsule 2,000 Units, 2,000 Units, oral, QACasi, Wilbert Strickland MD, 2,000 Units at 07/27/24 0808 cyanocobalamin (Vitamin B-12) tablet 1,000 mcg, 1,000 mcg, oral, QAM, Wilbert Strickland MD, 1,000 mcg at 07/27/24 0812 dextrose gel in packet 15 g, 15 g, oral, Q15 Min PRN OR dextrose (D10W) 10% bolus 250 mL, 250 mL, intravenous, Q15 Min PRN, Wilbert Strickland MD ethambutoL (MYAMBUTOL) tablet 1,200 mg, 1,200 mg, oral, Daily, Wilbert Strickland MD, 1,200 mg at 07/27/24 0808 jwozwlutyhd-mrvxmbyiv-ggbxcwgb (TRELEGY ELLIPTA) 200-62.5-25 mcg inhaler 1 puff, 1 puff, inhalation, Daily, Octavia Lemus MD, 1 puff at 07/27/24 0813 furosemide (LASIX) tablet 20 mg, 20 mg, oral, Daily, Caroline Maria PA, 20 mg at 07/27/24 0809 gabapentin (NEURONTIN) capsule 300 mg, 300 mg, oral, QID, Wilbert Strickland MD, 300 mg at 07/27/24 2030 glucagon injection 1 mg, 1 mg, intramuscular, Q30 Min PRN, Wilbert Strickland MD guaiFENesin ER (MUCINEX) extended release tablet 600 mg, 600 mg, oral, BID, Wilbert Strickland MD, 600 mg at 07/27/242029 HYDROmorphone (DILAUDID) injection 0.5 mg, 0.5 mg, intravenous, Q4H PRN, Wilbert Strickland MD, 0.5 mg at 07/24/24 0411 insulin glargine (LANTUS, SEMGLEE) 100 unit/mL injection 9 Units, 0.15 Units/kg, subcutaneous, Nightly, Stephani Reddy MD, 9 Units at 07/27/242029 insulin lispro (HumaLOG, ADMELOG) 100 unit/mL injection 0-4 Units, 0-4 Units, subcutaneous, Nightly, Stephani Reddy MD insulin lispro (HumaLOG, ADMELOG) 100 unit/mL injection 0-5 Units, 0-5 Units, subcutaneous, TID with meals, Stephani Reddy MD insulin lispro (HumaLOG, ADMELOG) 100 unit/mL injection 3 Units, 0.05 Units/kg, subcutaneous, TID with meals, Stephani Reddy MD, 3 Units at 07/27/24 1714 ipratropium-albuteroL (DUO-NEB) 0.5-2.5 mg/3 mL nebulizer solution 3 mL, 3 mL, nebulization, Q4H PRN (RT), Wilbert Strickland MD, 3 mL at 07/26/242204 montelukast (SINGULAIR) tablet 10 mg, 10 mg, oral, Nightly, Wilbert Strickland MD, 10 mg at 07/27/242029 mycophenolate mofetil (CELLCEPT) tablet 1,000 mg, 1,000 mg, oral, BID, Caroline Maria PA, 1,000 mg at 07/27/242029 nicotine (NICODERM CQ) 21 mg patch 24 hour 1 patch, 1 patch, transdermal, Daily, Wilbert Strickland MD, 1 patch at 07/27/24 0813 ondansetron (ZOFRAN) injection 4 mg, 4 mg, intravenous, Q6H PRN, Wilbert Strickland MD oxyCODONE (ROXICODONE) tablet 5 mg, 5 mg, oral, Q4H PRN, Wilbert Strickland MD, [address] (PROTONIX) extended release tablet 40 mg, 40 mg, oral, BID, Wilbert Strickland MD, 40 mg at 07/27/242029 ramelteon (ROZEREM) tablet 8 mg, 8 mg, oral, Nightly PRN, Wilbert Strickland MD, 8 mg at 07/26/242001 rivaroxaban (XARELTO) tablet 20 mg, 20 mg, oral, Daily, Wilbert Strickland MD, 20 mg at spironolactone (ALDACTONE) tablet 25 mg, 25 mg, oral, Daily, Caroline Maria PA, 25 mg at 07/27/24811 tacrolimus immediate-release capsule 0.5 mg, 0.5 mg, oral, Every other day, Wilbert Strickland MD, 0.5 mg at 07/26/2438 voriCONAZOLE (VFEND) tablet 200 mg, 200 mg, oral, BID, Wilbert Strickland MD, 200 mg at Objective Vitals: 24hr Min/Max: Temp Min: 36.5 ??C (97.7 ??F) Max: 36.7 ??C (98.1 ??F) Pulse Min: 64 Max: 90 BP Min: 81/52 Max: 116/77 Resp Min: 18 Max: 18 SpO2 Min: 96 % Max: 100 % Most Recent : Vitals: 07/27/242024 BP: BP Location: Patient Position: Pulse: Resp: Temp: TempSrc: SpO2: Weight: 62.9 kg (138 lb 9.6 oz) I/O last 2 completed shifts: In: 1410 [P.O.:1410] Out: 2200 [Urine:2200] Physical exam: Unless otherwise noted above General: Well appearing, NAD, appears stated age Skin: no rash, normal color and turgor HEENT: normocephalic, PERRLA, EOMI, no mucositis Abdomen: Soft, NTND, +BS Extremities: Atraumatic, acyanotic, no TTP, no edema Neuro: AAOx3, CN II-XI grossly intact, normal speech Psych: Appropriate mood, affect, and judgement. Lab/Radiology/Diagnostic Review: I have reviewed and interpreted the laboratory, radiologic, and diagnostic results from today. CBC: Recent Labs Lab Units 07/27/242027 WBC K/cumm 12.0* HEMOGLOBIN g/dL 10.2* HEMATOCRIT % 31.6* MCV fL 102.6* MCH pg 33.1 MCHC g/dL 32.3 RDW CV % 19.4* RDWSD fL 71.3* MPV fL 11.3 NEUTROS ABS K/cumm 9.4* LYMPHS PCT % 10.0 CMP: Recent Labs Lab Units 07/27/242027 SODIUM mmol/L 138 POTASSIUM PLASMA mmol/L 4.7 CO2 mmol/L 42* BUN SERUM mg/dL 17 GLUCOSE mg/dL 93 POC GLUCOSE MONITOR mg/dL 129 CREATININE mg/dL 0.72* CALCIUM mg/dL 9.3 CHLORIDE mmol/L 90* ALBUMIN g/dL 3.7 AST Units/L 38 ALT Units/L 30 ALK PHOS Units/L 127 BILIRUBIN TOTAL mg/dL 0.2 TOTAL PROTEIN g/dL 7.3 ANIONGAP mmol/L 6 LDH: Uric Acid: Tacrolimus level: Recent Labs Lab Units 07/24/24 0028 TACROLIMUS RANDOM ng/mL 1.7 Sirolimus level: Cyclosporine level: PT: Recent Labs Lab Units 07/24/24 0028 PROTIME (PT) sec 36.7* PTT: Recent Labs Lab Units 07/24/24 0028 APTT sec 36 Radiology: Transthoracic Echo (TTE) Complete W Doppler/CF Patient name: Bri Jones Date of test: 07/24/2024 Type of test: TTE w/Doppler Hospital #: 0 Date of : 1965 (M) Plastic Surgery Coordinator: Mariah Peters RDCS, RCCS Referring Physician: CAROLINE MARIA MD Contrast Agent: 0.8 ml Optison Administered, (2.2 ml wasted). Contrast Administered by: Sidra Garcia RN Supervised/Interpreted by: Bladimir Henao MD Diagnosis: Location: [facility] Reason for test: H/o CHF, worsening BNP and SOB MV Structure: Normal, MV Motion: Normal, Mitral Annulus: Normal AV Structure: tricuspid and is Normal, AV Motion: Normal Aotic root: Normal, TM: Normal, PV: Normal Valvular Vegetations: none seen, Mass/Thrombi: none seen RA: Normal Measurements: M-Mode Normal Aotic Root: <3.8 LA: <4.0 RV: <2.8 LV(ED): <5.7 LV(ES): Variable 2D Linear Normal Aotic Root: 3.1 cm <4.0 Ao Indexed: 1.8 cm/M2 <2.0 LA: <4.0 RV: 5.0 cm <4.2 LV(ED): 4.4 cm <5.9 LV(ES): 3.5 cm <4.0 2D Vol. Normal Indexed Indexed Normal RA: 30.0 ml 17.1 ml/M2 11-39 LA: 43.0 ml 24.5 ml/M2 16-34 RV: <12.7 LV(ED): 114.0 ml 62-150 64.9 ml/M2 <75 LV(ES): 21-61 <32 3D Vol. Indexed Normal LV(ED): <75 LV(ES): <32 LV EF: 30 % (Normal: >=52%) LV Septum: 0.9 cm (Normal: <1.0 cm) Wall Motion Scoring (1=Normal 2=Hypo 3=Akinetic 4=Dyskin./Aneurysm 0=Not visualized) Parasternal Long [place]:MAS=2 BAS=2 MIL=2 KEN=2 Parasternal Short [place]:MAS=2 MIS=2 TN=2 MIL=2 MAL=2 MA=2 Apical 4 Chambers:=2 MIS=2 BIS=2 BAL=2 MAL=2 AL=2 AC=2 Apical 2 Chambers:AI=2 TN=2 BI=2 BA=2 MA=2 AA=2 AC=2 LV Global Longitudinal Strain: -8.8% (Normal <-17%) RV Global Longitudinal Strain: -12% (Normal <-17%) LV Function: Moderate Global reduction in LV Ejection Fraction (EF=30-40%); EF 30%via visual assessment RV Function: mild global hypokinesis Septal Motion: Normal Pericardial Effusion: Trivial Atrial Septum: Normal DOPPLER/COLOR FLOW DOPPLER RESULTS: Diastolic Function: Grade II, increased mean LA pres. Tricuspid Valve: normal TV Pulmonic Valve: normal PV AV Regurgitation: No AR seen AV Stenosis: no AV Area: cm2 AV Pressure Gradient (mmHg): Mean: 0, Peak:0 MV Regurgitation: Mild-moderate MR MV Stenosis: no MS MV Area: cm2 MV Pressure Gradient (mmHg): Mean: 0 MV ERO: cm Regurg. Vol.: ml/beat Regurg. Frac.: % PA Pressure: 33+RA mmHg DOPPLER/COLOR FOLOW DOPPLER COMMENTS: No AR seen, Mild-moderate MR, no , no MS, normal TV, normal PV. Diastolic function: Grade II, increased mean LA pres. CONTRAST: 0.8 ml Optison Administered, (2.2 ml wasted). SUMMARY: TDS. Poor acoustic window. LV cavity size is normal with moderate global hypokinesis. LVEF visually estimated 30%. CI 1.07 l/min/m2. LA is normal. Mild RV cavity enlargement with moderate dysfunction. Mild-moderate MR. Grade II diastolic function characterized by elevated mean LA pressure. Estimated PA systolic pressure 33+RA(15) mmHg. Dilated inferior vena cava. Reduced global LV strain (-8.8%). Normal aorta. Changes noted. Confirmed on 07/24/2024 - 18:22:00 by Bladimir Henao MD By signing this report, the attending supervisor assembly room certifies that he or she has personally supervised and interpreted the echocardiogram and has reviewed and or edited and agrees with the written comments contained within the report. CT Body Outside Consult Narrative: EXAMINATION: RADIOLOGY CONSULTATION ON OUTSIDE IMAGING STUDY STUDY INITIALLY PERFORMED: 07/21/2024 at unknown. TYPE OF STUDY: Multiple CTA images of the chest with PE protocol are provided at the time of this interpretation. CONTRAST ROUTE: Contrast was administered via the intravenous route. The protocol was adequate to address the clinical question. The outside final report was not available at the time of this second opinion interpretation. 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 COMPARISON: CT chest with contrast dated 07/14/2024. FINDINGS: No central, segmental, or subsegmental pulmonary embolism. Mild coronary artery calcifications. There is mucous plugging and debris throughout the bilateral tracheobronchial trees, likely aspiration. There is a large cavity in the right lung apex with internal frond-like contents, not significantly changed. There is a general background of emphysema throughout the lungs. There are additional peribronchial vascular opacities, some of which are slightly improved from CT dated 07/14/2024, for instance in the medial right upper lobe, but remain persistent. There are additional irregular nodules throughout the lungs, which are predominantly new when compared with the 05/28/2024 exam. There are no new pulmonary nodule seen. No pleural effusion or pneumothorax. No acute CT findings in the imaged upper abdomen. Severe atherosclerosis of the upper abdominal aorta. No suspicious osseous lesions. Impression: 1. 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 These findings are not significant changed from CT dated 07/14/2024, but remain worse than CT dated 05/28/2024. 2. Lower lobe mucus plugging with nodularity suspicious for superimposed aspiration pneumonia, which is new from CT dated 05/28/2024. The findings, conclusions and recommendations within this report do not replace the initial findings, conclusions and recommendations made at the facility where the study was performed based upon the imaging and clinical condition at that time. Comparison with the prior report and clinical history is necessary. The provided images may or may not represent the [employer] source data set and thus may contain changes that may lower the accuracy of this second-opinion interpretation. Dictated by: Slick Guzman M.D. The radiology attending physician has personally reviewed this study, and had reviewed and/or edited this written report and agrees with it. Electronically signed by: Cameron Lenz M.D. XR Outside Reference Narrative: EXAMINATION: Images For Reference Purposes Only Impression: These images are for Reference purposes only and have not been reviewed by [facility] Radiology. There will be no report generated by a [facility] Radiologist. Assessment/Plan #cGVHD -continue tacrolimus, MMF -OI ppx with acyclovir, voriconazole #MAC pulmonary infection -transplant ID on board -on amicakin (peak on 07/29/2024), azithromycin, ethambutol -needs ID follow up on discharge #New HFrEF - EF 30% -gentle diuresis -cardiology consult -uptitrated GDMT as able The patient was directly discussed with hospital medicine x ray consultant caring for patient and I personally reviewed their note. Cruz Pederson MD, [facility] [employer] Division of Oncology, Section of Leukemia and Bone Marrow Transplant [facility] in [place] * J Carlos Frazier, OT - 07/27/2024 9:51 AM CDT Occupational Therapy Occupational Therapy Evaluation Note NOTE: This is a summary note of the feliz components of the evaluation session. For full details, review chart for all flowsheets documented on by this occupational therapy clinician on this date. Vital signs are documented in vital signs flowsheet. For questions, please review the treatment team and contact the occupational therapist currently assigned to this patient. If an occupational therapist is not assigned to this patient, please call [phone]. 07/27/24 0958 General Chart Reviewed Yes Session Type Evaluation OT Received On 07/27/24 Safe Environment Arm band checked;Session completed bedside;Patient found sitting at edge of bed;Gait belt utilized for all out of bed mobility Subjective Agreeable to Therapy Family/Caregiver Present No Occupational Therapy-Patient Goal Pt is agreeable to goals set by OT in the acute care setting Precautions Precautions Fall risk;Safety Home Living Type of Home Mobile Home Home Layout One level;Performs ADLs on one level;Able to live on main level with bedroom/bathroom (laundry on the main floor) Home Access Stairs to enter with rails Entrance Stairs-Rails Both Entrance Stairs-Number of Steps 5 Bathroom Shower/Tub Tub/shower unit Bathroom Toilet Standard Bathroom Equipment Shower chair Bathroom Accessibility Accessible via walker Home Mobility Equipment-Available 4-Wheeled walker Home Mobility Equipment-Currently Using 4-Wheeled walker (prn use when I feel weak ) Prior Function Level of [place] Independent with ambulation;Independent functional transfers;Independent withADLs Lives With Other (Comment) (Roomate (Lissy Kaiser)) Receives Help From Friend(s) (forming department end finder care from roommate Lissy ) Driving No Mode of Transportation Driven by others;Friends (or medical transport) ADL Assistance Independent Instrumental ADL (IADL) Assistance Needs assistance Meal Prep Independent Laundry Independent Cleaning Independent Shopping (Roommate completes task) Block Cleaner Independent Medical Management Independent Vocational/Occupation On disability Fall within the last 6 months Yes Fall within the last 6 months comment 1 due to tripping ADL ADLS (WDL) X Grooming Grooming: Where assessed Edge of bed Grooming: Level of assistance Moderate Assist Grooming: Assistance with Balance (set up for task; total for balance) LE Dressing LE Dressing: Where assessed Edge of bed LE Dressing: Level of assistance Standby Assist LE Dressing: Assistance with Balance Toileting Toileting: Where assessed (use of urinal EOB) Toileting: Level of assistance Standby Assist Toileting: Assistance with Balance Room Mobility Room Mobility comment Unable to safely assess 2/2 [place] Toilet Transfers Toilet Transfers Comments Unable to safely assess 2/2 OH Pain Assessment Pain Assessment 0-10 Pain Score 9 Pain Location Chest Pain Orientation Generalized Pain Interventions (RN present and aware) Activity Tolerance Endurance Tolerates 10 - 20 min activity with multiple rests Vision-Basic Assessment Current Vision Wears glasses only for reading Cognition Arousal/Alertness Alert;Appropriate responses to stimuli Attention Span Appears intact Memory Decreased short term memory (as observed via SBT results.) Current communication Appears Intact Orientation Oriented X4 (person, place, time, situation) Following Commands Follows all commands and directions without difficulty Safety Judgment Good awareness of safety precautions Awareness of Errors Good awareness of errors made Insight Fully aware of deficits Problem Solving Able to problem solve independently Compliance/Behavior Easy to engage Perseveration Not present Cognitive Tests Cognitive Tests Yes Short Blessed Test What year is it now? 0 What month is it now? 0 Repeat this name and address after me Josué Neff [address] [place] [address] Without looking at the clock, tell me what time it is 3 Count aloud backwards from 20-1 0 Say the months of the year backwards in reverse order 0 Repeat the name and address I asked you to remember 4 Short Blessed Total Score 7 Short Blessed Comments Scores of 7 and higher indicate need for further cognitive testing to rule out a dementing disorder. Sensation Light Touch WFL Numbness/Tingling Yes (reports numbness in b/l feet) Sensation Comments 1+ edema noted in pt's BLE/BUEs Motor Planning Motor Planning Appears intact Coordination Movements Are Fluid and Coordinated 1 Fine Motor WFL Serial Opposition WFL Hand Preference Hand Preference Right Hand Function Coordination Functional Gross Grasp Functional Reach/Grasp RUE Grasp Gross grasp (5/5) LUE Grasp Gross grasp (5/5) Balance Tests Balance Tests Yes Tinetti Sitting Balance 1 Arises 0 Attempts to Arise 0 Immediate Standing Balance (First 5 Seconds) 0 Standing Balance 1 Nudged 0 Eyes Closed 0 Turned 360 Degrees: Steadiness 0 Turned 360 Degrees: Continuity of Steps 0 Sitting Down 0 Balance Score 2 Balance Balance Yes Static Sitting Balance Static Sitting-Balance Support Feet supported;No upper extremity supported Static Sitting-Sitting Surface Bed Static Sitting-Level of Assistance Independent Dynamic Sitting Balance Dynamic Sitting-Balance Support Feet supported;No upper extremity supported Dynamic Sitting-Balance Lateral lean;Forward lean;Reaching for objects;Reaching across midline Dynamic Sitting-Sitting Surface Bed Dynamic Sitting-Level of Assistance Distant supervision Static Standing Balance Static Standing-Balance Support No upper extremity supported Static Standing-Standing Surface Floor Static Standing-Level of Assistance Close supervision Dynamic Standing Balance Dynamic Standing-Balance Support No upper extremity supported Dynamic Standing-Balance Lateral lean;Forward lean;Reaching for objects;Reaching across midline Dynamic Standing-Standing Surface Floor Dynamic Standing-Level of Assistance Close supervision Bed Mobility Bed Mobility Yes Bed Mobility 1 Bed Mobility From 1 Edge of bed Bed Mobility Type 1 To and from Bed Mobility to 1 Supine Level of Assistance 1 Modified Independent Bed Mobility Comments 1 HOB elevated Transfers Transfer Yes Transfer 1 Transfer From 1 Sit Transfer Type 1 To and from Transfer to 1 Stand Technique 1 Sit to stand;Stand to sit Transfer Device 1 No device Transfer Level of Assistance 1 Standby Assist Trials/Comments 1 Pt required assistance due to impaired balance, decreased force production, to block knees to prevent buckling, and to control descent. RUE Assessment RUE Assessment WFL LUE Assessment LUE Assessment WFL Other Comments Comments Pt educated on discharge recommendations of home with supervision and intermittent assistance as well as the OT POC for while in the acute care setting. Pt is agreeable to recommendaitons atthis time. Daily Activity - 6 Clicks Putting on and taking off regular lower body clothing 3 Bathing 3 Toileting 3 Putting on and taking off upper body clothing 3 Personal Grooming 3 Eating Meals 4 Total Score (range 6-24) 19 Score Interpretation 40.22 Safe Environment End of Therapy Session Safe Environment End of Therapy Session Call light within reach;Overbed table within reach;RN notified;Patient left supine in bed Assessment Problem List Decreased endurance;Decreased fine motor control;Decreased functional mobility;Decreased ADL independence;Decreased IADL independence;Pain Barriers to Discharge Current Mobility Status;Current ADL Status Barrier Comments Pt is a fall risk Plan Plan If this is the last note, consider this the discharge summary;Plan of care initiated Recommendation/Plan OT Recommendation [facility] Facility (pending further evaluation of mobility) Patient at high risk for Falls;Readmission;Injury due to balance deficits;Prolonged dependence for self care tasks;Developing secondary complications: poor health management;Injury due to decreased ability to care for self;Injury due to reduced functional status;Injury at home as patient has not returned to prior level of function Recommend SNF due to Risk of injury at home;Unable to safely care for self in the home;Skilled therapy needed to address care for self in the home;Skilled therapy needed to address functional deficits;Skilled therapy needed for patient to return to prior level of independence OT Frequency during current admission 2-3x/wk Treatment/Interventions during current admission ADL/IADL retraining;Balance Training;Bed mobility;Compensatory technique education;Endurance training;Functional activity;Functional mobility training;Functional transfer training;Therapeutic activity;Strengthening;Therapeutic exercise;Transfer traini ng;Parent/caregiver training and education OT - Next Appointment 07/29/24 OT - OK to Discharge No OT Evaluation Complete Yes Time Calculation Start Time 0951 Stop Time 1020 Time Calculation (min) 29 min Multi-Disciplinary Problems (from Occupational Therapy) Active Problems Problem: Dressings Lower Extremities Start Date: 07/27/24 Goal Start Date Expected End Date End Date STG - Patient to complete lower body dressing with modified independence 07/27/24 08/10/24 -- Problem: Grooming Start Date: 07/27/24 Goal Start Date Expected End Date End Date STG - Patient will complete grooming with modified independence standing at the sink 07/27/24 08/10/24 -- Problem: Toileting Start Date: 07/27/24 Goal Start Date Expected End Date End Date STG - Patient will complete toileting tasks with modified independence 07/27/24 08/10/24 -- Problem: Transfers Start Date: 07/27/24 Goal Start Date Expected End Date End Date STG - Patient will perform toilet transfer with modified independence 07/27/24 08/10/24 -- Problem: OT Misc Start Date: 07/27/24 Goal Start Date Expected End Date End Date OT LTG - Pt will complete ADLs/functional mobility with independence. 07/27/24 08/26/24 -- * Estefani Dolan, PT - 07/27/2024 8:58 AM CDT Physical Therapy Evaluation Note NOTE: This is a summary note of the feliz components of the evaluation session. For full details, review chart for all flowsheets documented on by this physical therapy clinician on this date. Vital signs are documented in the vital signs flowsheet. For questions, please review the treatment team and contact the PT or SALES DEMONSTRATOR currently assigned to this patient. If a physical therapy clinician is not assigned to this patient, please call [phone]. 07/27/24 0858 General Chart Reviewed Yes Session Type Evaluation PT Received On 07/27/24 Safe Environment Arm band checked;Patient found in supine;Gait belt utilized for all out of bed mobility Subjective Agreeable to Therapy Family/Caregiver Present No Physical Therapy-Patient Goal to go home Home Living Type of Home Mobile Home Home Layout One level Home Access Stairs to enter with rails Entrance Stairs-Rails Both Entrance Stairs-Number of Steps 5 Home Mobility Equipment-Available 4-Wheeled walker;Wheeled walker Home Mobility Equipment-Currently Using 4-Wheeled walker (in community only) Prior Function Level of [place] Independent functional transfers;Independent with ambulation Lives With Other (Comment) (Roommate) Receives Help From Friend(s) (Roommate available forming department end finder) Fall within the last 6 months Yes Fall within the last 6 months comment pt reports a few falls due to tripping Activity Tolerance Activity Tolerance Comments marci rated somewhat hard Cognition Arousal/Alertness Alert;Appropriate responses to stimuli Orientation Oriented X4 (person, place, time, situation) Following Commands Follows all commands and directions without difficulty Bed Mobility 1 Bed Mobility From 1 Supine Bed Mobility Type 1 To Bed Mobility to 1 Edge of bed Level of Assistance 1 Modified Independent Bed Mobility Comments 1 increased time required Transfer 1 Transfer From 1 Sit Transfer Type 1 To and from Transfer to 1 Stand Technique 1 Sit to stand;Stand to sit Transfer Device 1 4 wheeled walker Transfer Level of Assistance 1 Standby Assist Trials/Comments 1 increased time required Ambulation 1 Distance (ft) 1 130 Surface 1 Level tile Device 1 Wheeled walker Assistance 1 Standby Assist Gait: Requires verbal cues to 1 Pace activity;Improve upright posture Gait Deviations 1 Base of support - decreased;Harini - decreased;Heel strike - decreased;Step length - decreased RLE Assessment RLE Assessment WFL LLE Assessment LLE Assessment WFL Basic Mobility - 6 Click How much difficulty does the patient have: Turning over in bed 4 How much difficulty does the patient currently have: Sitting down and standing up from a chair witharms? 3 How much difficulty does the patient have: Moving from lying on back to sitting on the side of the bed? 4 How much difficulty does the patient have: Moving to and from a bed to a chair including wheelchair? 3 How much help does the patient currently need: Walk in hospital room? 3 How much help from another person does the patient currently need: Climbing 3-5 steps with a railing? 3 Total 6 Click Score (range 6-24) 20 Score Interpretation 41.05 Safe Environment End of Therapy Session Safe Environment End of Therapy Session RN notified;Call light within reach;Overbed table within reach;Patient left sitting at edge of bed Assessment Prognosis Good Problem List Gait deviations;Decreased strength;Decreased endurance;Impaired balance;Decreased mobility Problem List Comments PT Diagnosis: Pt's SOB, VRE results in above listed activity deficits and impairments which prevent full participation in home and community mobility Plan Plan Plan of care initiated;If this is the last note, consider this the discharge summary Recommendation/Plan PT Recommendation/Plan Home Health PT;Home with intermittent assist Patient at high risk for Falls;Readmission PT Frequency during current admission 3-5x/wk Treatment/Interventions during current admission Balance Training;Bed mobility;Endurance training;Gait training;Stair training PT Equipment Recommended None PT - Next Appointment 07/28/24 PT Evaluation Complete Yes Time Calculation Start Time 857 Stop Time 935 Time Calculation (min) 38 min Multi-Disciplinary Problems (from Physical Therapy) Active Problems Problem: Mobility Start Date: 07/27/24 Goal Start Date Expected End Date End Date STG - Patient will ambulate 300 feet with rollator and modified independence 07/27/24 08/10/24 -- Goal Start Date Expected End Date End Date STG - Patient will ascend and descend four to six stairs With stand by assist 07/27/24 08/10/24 -- Problem: Transfers Start Date: 07/27/24 Goal Start Date Expected End Date End Date STG - Patient will transfer sit to and from stand With modified independence 07/27/24 08/10/24 -- * Stephani Reddy MD - 07/27/2024 7:43 AM CDT Hospitalist Consult Daily Progress Note as requested by BMT Physician Division of Hospital Medicine Name: Bri Jones : 1965 Today's Date: July 27, 2024 Age: 58 y.o. male Admission: 07/23/2024 Bed: [id number] LOS: 4 days BMT Day: Subjective Chief complaint: MAC pneumonia Interval History Blood sugars elevated overnight. Received IV insulin Seen and examined at bedside. Reports doing well this a.m.. Denies any shortness of breath, chest pain, fever, chills. Remains on 4 L via nasal cannula. WBC 12.1<< 16.7, hemoglobin 9.2, creatinine 0.79, Mag 1.4 Objective Scheduled Meds PRN Meds Infusions acyclovir, 400 mg, oral, Q8H amikacin, 15 mg/kg, intravenous, Once per day on Saturday ascorbic acid, 500 mg, oral, Daily atorvastatin, 40 mg, oral, Daily azithromycin, 500 mg, oral, Daily carvediloL, 3.125 mg, oral, BID with meals (bkfst, dinner) cholecalciferol, 2,000 Units, oral, QAM cyanocobalamin, 1,000 mcg, oral, QAM ethambutoL, 1,200 mg, oral, Daily jozekpsopim-riaplisvl-nahvsngo, 1 puff, inhalation, Daily furosemide, 20 mg, oral, Daily gabapentin, 300 mg, oral, QID guaiFENesin ER, 600 mg, oral, BID insulin lispro, 0-10 Units, subcutaneous, TID with meals insulin lispro, 0-5 Units, subcutaneous, Nightly insulin regular, 5 Units, intravenous, Once montelukast, 10 mg, oral, Nightly mycophenolate mofetil, 1,000 mg, oral, BID nicotine, 1 patch, transdermal, Daily pantoprazole DR, 40 mg, oral, BID rivaroxaban, 20 mg, oral, Daily spironolactone, 25 mg, oral, Daily tacrolimus, 0.5 mg, oral, Every other day voriCONAZOLE, 200 mg, oral, BID acetaminophen, 650 mg, oral, Q4H PRN dextrose, 15 g, oral, Q15 Min PRN OR dextrose, 250 mL, intravenous, Q15 Min PRN glucagon, 1 mg, intramuscular, Q30 Min PRN HYDROmorphone, 0.5 mg, intravenous, Q4H PRN ipratropium-albuteroL, 3 mL, nebulization, Q4H PRN (RT) ondansetron, 4 mg, intravenous, Q6H PRN oxyCODONE, 5 mg, oral, Q4H PRN ramelteon, 8 mg, oral, Nightly PRN Vitals Most Recent Vitals: T 36.7 ??C (98.1 ??F), HR 89, BP 116/77, RR 18, SpO2 100 %. 24hr Min/Max: Temp Min: 36.6 ??C (97.9 ??F) Max: 36.7 ??C (98.1 ??F) Pulse Min: 65 Max: 93 BP Min: 94/57 Max: 116/77 Resp Min: 18 Max: 18 SpO2 Min: 99 % Max: 100 % Intake/Output Summary (Last 24 hours) at 07/27/2024 0743 Last data filed at 07/26/2024 2200 Gross per 24 hour Intake 420 ml Output 2050 ml Net -1630 ml ICE Score: No data found. Baseline ICE Score: CRS and ICANS Grading: No data found. Physical Exam Constitutional: NAD Pulmonary: Diminished air entry bilaterally with expiratory rales/crackles Cardiovascular: RRR, normal S1 and S2, no murmurs GI: Soft, non-tender, non-distended Skin: No new rashes, lesions or bruises on visible skin Extremities: Normal without edema or cyanosis Neurologic: AOx4, speech normal, follows commands Psychiatric: Normal affect and mood I have reviewed the patient's vital signs. Lines, Drains, Airways Peripheral IV 07/26/24 22 G Anterior;Proximal;Right Forearm (Active) Labs/Diagnostic Review CBC: Recent Labs Lab Units 07/26/24 2142 WBC K/cumm 12.1* HEMOGLOBIN g/dL 9.2* HEMATOCRIT % 28.5* MCV fL 105.9* MCH pg 34.2* MCHC g/dL 32.3 RDW CV % 19.7* RDWSD fL 75.8* MPV fL 11.1 NEUTROS ABS K/cumm 8.7* LYMPHS PCT % 15.9 CMP: Recent Labs Lab Units 07/27/24 0722 07/26/24 2142 SODIUM mmol/L -- 134* POTASSIUM PLASMA mmol/L -- 4.2 CO2 mmol/L -- 41* BUN SERUM mg/dL -- 18 GLUCOSE mg/dL -- 288* POC GLUCOSE MONITOR mg/dL 389* -- CREATININE mg/dL -- 0.79* CALCIUM mg/dL -- 7.9* CHLORIDE mmol/L -- 90* ALBUMIN g/dL -- 2.7* AST Units/L -- 25 ALT Units/L -- 24 ALK PHOS Units/L -- 106 BILIRUBIN TOTAL mg/dL -- 0.2 TOTAL PROTEIN g/dL -- 5.6* ANIONGAP mmol/L -- 3 LDH: INR - Uric Acid:- Tacrolimus level:- Sirolimus level: - Cyclosporine level: - (Labs above are the most recent result obtained in the last 24 hours unless otherwise specified. For additional labs/trends, see Epic.) I have reviewed the laboratory results. Imaging Review No results found. Assessment/Plan Acute on chronic respiratory failure ([facility]) ([facility]) Assessment & Plan Hx Mycoplasma avium and cavitary lung disease, hx Stenotrophamonas PNA 05/2024, HFpEF, COPD on chronic O2. Presented to [facility] ED 07/19 for SOB and treated for COPD exac with pred course. Presented to [facility] on 07/21 for worsening SOB. CXR and CTPE with cf worsening mulifocal PNA prompting transfer. Was needing bipap but now has been weaned to home oxygen requirements. Ddx includes infectious, COPD, CHF, GVHD though was remote. Has had ~5d of steroids without much improvement. Echo 07/24 with worsening LVEF to 30%. RVP neg. -Nominated OSH CT with reading: c/w cavitary mycobacterial disease superimposed on emphysema appearworse than 05/28, Lower lob mucus plugging with nodularity suspicious for aspiration pneumonia. -seen by speech at OSH, okay for soft diet -on home oxygen requirements -ID: more likely progression of MAC, COPD, and CHF over new infection. See separate problems for further management. -continue supplemental oxygen as needed to maintain oxygen sats > 88%, currently on 4 L Nontuberculous mycobacterial disease of lung ([facility]) ([facility]) Assessment & Plan -Dx 05/2024 admission with cavitary RUL mass. S/p BAL. Cx with M avium -follows with Dr. Nova in ED -currently on Azithro/Ethambutol. Plan has been for amikacin MWF x6 weeks and clofazimine when able -ID consulted: increased azith to 500, continue ethambutol, started amikacin (07/24-) MWF (likely 4-6weeks), amikacin trough after 3rd dose -consulted audiology -check EKG iso h/o QTc prolongation(EKG 07/27: Qtc 438) ,check mag daily Abdominal pain Assessment & Plan -Recent hx pancreatitis admission without obvious source. Pain was slowly recurring in the last fewdays. Lipase was WNL at LFTs wnl at OSH and wnl on repeat here. -Improving. -Tolerating mechanical soft diet CHF (congestive heart failure) ([facility]) ([facility]) Assessment & Plan TTE 03/2024 with LVEF 50-55%. Pro BNP at OSH >30k. Last adm here 1012. Appears euvolemic. S/p Lasix at OSH and [place] [address] -repeat TTE 07/24: LVEF 30%, moderate global hypokinesis, mild RV enlargement, grade 2 diastolic dysfunction, PA systolic pressure 33, dilated inferior vena cava -initiated GDMT: carvedilol 3.125 bid, aldactone 25 every day, lasix 20 every day -monitor BP and HR closely, BP soft overnight, hold off on further addition or titration today -if continues to be stable will start low dose lisinopril and further titrations COPD with exacerbation ([facility]) ([facility]) Assessment & Plan -Hx COPD on trelegy and albuterol at home. Intermittent ongoing smoking -Reports exacerbation starting ~07/19. Now s/p 5d steroids -No wheezing at present -Continue Trelegy Ellipta daily, nebs as PRN. 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 Has a chronic globus sensation and mech soft diet at baseline per pt. Severe protein-calorie malnutrition ([facility]) ([facility]) Assessment & Plan BMI 18.14, appears malnourished. RD to evaluate with recommendations History of pulmonary embolism Assessment & Plan -DVT and PE in 2012. Had IJ DVT 2017 -Continues on Xarelto Peripheral neuropathy Assessment & Plan -Continue gabapentin Type 2 diabetes mellitus ([facility]) Assessment & Plan Reports only a sliding scale at home. Hyperglycemic at OSH with steroid Elevated blood sugars requiring IV insulin and lispro pushes Start basal/bolus insulin, continue sliding scale insulin, low carb diet HbA1c 6.7(06/15/24) Service: Bone Marrow Transplant Code status : Full Code Diet : Adult Diet Restricted; Mechanical Soft; Consistent Carbohydrate PT/OT Dispo Rec : / Supplementary Attestation My total encounter time on this service date was 40 minutes which was spent performing a cuul-wl-jryl encounter and personally completing the provider-level activities documented in the note. This includes time spent prior to the visit and after the visit in direct care of the patient. This time does not include time spent in any separately reportable services. Stephani Reddy MD * Caroline Maria PA - 07/26/2024 7:32 AM CDT Daily Progress Note Division of Hospital Medicine Name: Bri Jones : 1965 Today's Date: July 26, 2024 Age: 58 y.o. male Admission: 07/23/2024 Bed: [id number] LOS: 3 days Subjective Interval History BP overnight noted to be 92/57 and on recheck was 107/69, patient asymptomatic. Afebrile, HDS on 3-4L of NCO2. Glucose overnight wnl, hyperglycemia during the day, patient wants to continue sliding scale for now. WBC 17.4->16.7. Hgb 9.1- >9.4. Mag wnl. Patient reports significantly improved abdominal pain, shortness of breath mildly improves. Continues to have productive cough and coarse breath sounds. Patient reports that he follows with a supervisor assembly room in [place]. Plan: check EKG, hold off on further GDMT addition and titration with blood pressure, audiology to see patient, Abx per ID, BMT following still has active transfer order to BMT Objective Scheduled Meds PRN Meds Infusions acyclovir, 400 mg, oral, Q8H amikacin, 15 mg/kg, intravenous, Once per day on Saturday ascorbic acid, 500 mg, oral, Daily atorvastatin, 40 mg, oral, Daily azithromycin, 500 mg, oral, Daily carvediloL, 3.125 mg, oral, BID with meals (bkfst, dinner) cholecalciferol, 2,000 Units, oral, QAM cyanocobalamin, 1,000 mcg, oral, QAM ethambutoL, 1,200 mg, oral, Daily girqqmzgvsf-evdiodgyr-kmdlfene, 1 puff, inhalation, Daily furosemide, 20 mg, oral, Daily gabapentin, 300 mg, oral, QID guaiFENesin ER, 600 mg, oral, BID insulin lispro, 0-10 Units,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 possible DC home, safety [employer] Patient Centered Goal for Treatment: d/c Summary: * Plan of Care - Laly Olivas RN - 08/02/2024 2:40 AM CDT Goals: Clinical Goals for the Shift: VSS, safety, rest Mcfp Patient Centered Goal for Treatment: d/c Summary: Problem: Lack of Knowledge Goal: Ability to describe self care measures that may prevent or decrease complications related to Type 1 Diabetes will improve Outcome: Progressing Goal: Ability to describe self care measures that may prevent or decrease complications related to Type 2 Diabetes will improve Outcome: Progressing Problem: Infection Goal: Absence of infection during hospitalization Outcome: Progressing Problem: Discharge Planning Goal: Understanding discharge needs will improve Outcome: Progressing Problem: Isolation Lack of Knowledge Goal: Knowledge of risk factors and measures for prevention of condition will improve Outcome: Progressing Problem: Isolation Physical Regulation Goal: Isolation- Spread of further infection will be prevented Outcome: Progressing Goal: Isolation- Complications related to the disease process, condition, or treatment will be avoided or minimized. Outcome: Progressing Problem: Fall Risk Goal: Ability to state ways to decrease the risk of falls will improve Outcome: Progressing Goal: Will remain free from falls Outcome: Progressing Goal: Will remain free from injury from falls Outcome: Progressing Problem: Lack of Knowledge Goal: Ability to develop a pain control plan will improve Outcome: Progressing Problem: Medication Goal: Satisfaction with pain management medication regimen will improve Outcome: Progressing Problem: Sensory Goal: Ability to identify factors that increase pain levels will improve while working to decrease the patient's pain levels Outcome: Progressing Problem: Coping Goal: Ability to cope will improve Outcome: Progressing Problem: Health Behavior Goal: Identification of resources available to assist in meeting health care needs will improve Outcome: Progressing Problem: Skin Integrity Impairment Risk Goal: Mobility will improve Outcome: Progressing Goal: Understanding of ways to prevent future skin breakdown will improve Outcome: Progressing Goal: Nutritional status will improve Outcome: Progressing Goal: Risk for impaired skin integrity will decrease Outcome: Progressing Problem: Respiratory Goal: Achieves optimal ventilation and oxygenation Outcome: Progressing Goal: Ability to maintain a clear airway will improve Outcome: Progressing Problem: Cardiovascular Goal: Cardiovascular status will improve Outcome: Progressing Problem: Skin/Tissue Integrity Goal: Skin integrity remains intact Outcome: Progressing Goal: Oral mucous membranes remain intact Description: Outcome: Progressing Problem: Musculoskeletal Goal: Return ADL status to a safe level of function Outcome: Progressing Goal: Ability to perform activities at highest level will improve Outcome: Progressing Problem: Genitourinary Goal: Urinary catheter remains patent Outcome: Progressing Problem: Neurosensory Goal: Achieves stable or improved neurological status Outcome: Progressing Goal: Achieves maximal functionality and self care Outcome: Progressing * Plan of [place] - Halie Hoskins RN - 08/01/2024 12:08 PM CDT Discharge plan discussed with Dr Gordon. Patient is not medically ready for discharge today. Weekend [facility] Home Infusion coordinator notified. CM will continue to follow for discharge needs. For weekend assistance, please contact the on-call weekend case managers. * Plan of Care - Anaid Burrell RN - 08/01/2024 8:57 AM CDT Problem: Lack of Knowledge Goal: Ability to describe self care measures that may prevent or decrease complications related to Type 1 Diabetes will improve Outcome: Progressing Goal: Ability to describe self care measures that may prevent or decrease complications related to Type 2 Diabetes will improve Outcome: Progressing Problem: Infection Goal: Absence of infection during hospitalization Outcome: Progressing Problem: Discharge Planning Goal: Understanding discharge needs will improve Outcome: Progressing Problem: Isolation Lack of Knowledge Goal: Knowledge of risk factors and measures for prevention of condition will improve Outcome: Progressing Problem: Isolation Physical Regulation Goal: Isolation- Spread of further infection will be prevented Outcome: Progressing Goal: Isolation- Complications related to the disease process, condition, or treatment will be avoided or minimized. Outcome: Progressing Problem: Fall Risk Goal: Ability to state ways to decrease the risk of falls will improve Outcome: Progressing Goal: Will remain free from falls Outcome: Progressing Goal: Will remain free from injury from falls Outcome: Progressing Problem: Lack of Knowledge Goal: Ability to develop a pain control plan will improve Outcome: Progressing Problem: Medication Goal: Satisfaction with pain management medication regimen will improve Outcome: Progressing Problem: Sensory Goal: Ability to identify factors that increase pain levels will improve while working to decrease the patient's pain levels Outcome: Progressing Problem: Coping Goal: Ability to cope will improve Outcome: Progressing Problem: Health Behavior Goal: Identification of resources available to assist in meeting health care needs will improve Outcome: Progressing Problem: Skin Integrity Impairment Risk Goal: Mobility will improve Outcome: Progressing Goal: Understanding of ways to prevent future skin breakdown will improve Outcome: Progressing Goal: Nutritional status will improve Outcome: Progressing Goal: Risk for impaired skin integrity will decrease Outcome: Progressing Problem: Respiratory Goal: Achieves optimal ventilation and oxygenation Outcome: Progressing Goal: Ability to maintain a clear airway will improve Outcome: Progressing Problem: Cardiovascular Goal: Cardiovascular status will improve Outcome: Progressing Problem: Skin/Tissue Integrity Goal: Skin integrity remains intact Outcome: Progressing Goal: Oral mucous membranes remain intact Description: Outcome: Progressing Problem: Musculoskeletal Goal: Return ADL status to a safe level of function Outcome: Progressing Goal: Ability to perform activities at highest level will improve Outcome: Progressing Problem: Genitourinary Goal: Urinary catheter remains patent Outcome: Progressing Problem: Neurosensory Goal: Achieves stable or improved neurological status Outcome: Progressing Goal: Achieves maximal functionality and self care Outcome: Progressing Goals: Clinical Goals for the Shift: patient remains safe, vss Mcfp Patient Centered Goal for Treatment: d/c Summary: * Plan of Care - Esther Ayala RN - 07/31/2024 10:31 PM CDT Goals: Clinical Goals for the Shift: VSS, rest, BG management, pain control Mcfp Patient Centered Goal for Treatment: d/c Problem: Lack of Knowledge Goal: Ability to describe self care measures that may prevent or decrease complications related to Type 1 Diabetes will improve Outcome: Progressing Goal: Ability to describe self care measures that may prevent or decrease complications related to Type 2 Diabetes will improve Outcome: Progressing Problem: Infection Goal: Absence of infection during hospitalization Outcome: Progressing Problem: Discharge Planning Goal: Understanding discharge needs will improve Outcome: Progressing Problem: Isolation Lack of Knowledge Goal: Knowledge of risk factors and measures for prevention of condition will improve Outcome: Progressing Problem: Isolation Physical Regulation Goal: Isolation- Spread of further infection will be prevented Outcome: Progressing Goal: Isolation- Complications related to the disease process, condition, or treatment will be avoided or minimized. Outcome: Progressing Problem: Fall Risk Goal: Ability to state ways to decrease the risk of falls will improve Outcome: Progressing Goal: Will remain free from falls Outcome: Progressing Goal: Will remain free from injury from falls Outcome: Progressing Problem: Lack of Knowledge Goal: Ability to develop a pain control plan will improve Outcome: Progressing Problem: Medication Goal: Satisfaction with pain management medication regimen will improve Outcome: Progressing Problem: Sensory Goal: Ability to identify factors that increase pain levels will improve while working to decrease the patient's pain levels Outcome: Progressing Problem: Coping Goal: Ability to cope will improve Outcome: Progressing Problem: Health Behavior Goal: Identification of resources available to assist in meeting health care needs will improve Outcome: Progressing Problem: Skin Integrity Impairment Risk Goal: Mobility will improve Outcome: Progressing Goal: Understanding of ways to prevent future skin breakdown will improve Outcome: Progressing Goal: Nutritional status will improve Outcome: Progressing Goal: Risk for impaired skin integrity will decrease Outcome: Progressing Problem: Respiratory Goal: Achieves optimal ventilation and oxygenation Outcome: Progressing Goal: Ability to maintain a clear airway will improve Outcome: Progressing Problem: Cardiovascular Goal: Cardiovascular status will improve Outcome: Progressing Problem: Skin/Tissue Integrity Goal: Skin integrity remains intact Outcome: Progressing Goal: Oral mucous membranes remain intact Description: Outcome: Progressing Problem: Musculoskeletal Goal: Return ADL status to a safe level of function Outcome: Progressing Goal: Ability to perform activities at highest level will improve Outcome: Progressing Problem: Genitourinary Goal: Urinary catheter remains patent Outcome: Progressing Problem: Neurosensory Goal: Achieves stable or improved neurological status Outcome: Progressing Goal: Achieves maximal functionality and self care Outcome: Progressing * Plan of [place] - Anaid Miranda RN - 07/31/2024 4:22 PM CDT Per Medical Chart/Rounds/IDR: Not medically ready for discharge. ADD: 08/01/24 Plan/referrals made/in place: [facility] Home Infusion Agency: [facility] Following Pharmacist: [facility] Home Health Agency (phone/fax): [facility] [phone] [Type of line/Active LDAs/Wounds and ORDERS: DL PICC Support following discharge: Cannot discharge until 6:30 pm as needs roommate to be at home to assist him into the home. Transportation: Will Need MTM transport set up for 6:30pm F/U Appointments: Scheduled by nurse coordinator. Plan for weekend discharge: Will discharge on 08/01 will need MTM transport. Portable oxygen tank atbedside for transport. For weekend assistance, please check the treatment team in [facility] for the assigned case managers or contact the weekend Case Management phone. * Plan of Care - Anaid Miranda, RN - 07/31/2024 3:47 PM CDT 07/31/24 7017 Communications Important Message from Medicare notice given to patient? Yes IM letter completed with patient/phlebotomy services representative at bedside. Patient/phlebotomy services representative were informed ofthe planned discharge date, the date the beneficiary's financial liability begins, the beneficiary's appeal rights, and how and when to initiate an appeal. Patient/phlebotomy services representative were provided a copy of the IM letter and IM letter was placed in unit???s designated medical record bin to be uploaded into the patient???s chart. E. Dori Miranda, MSN, RN, [employer] [phone]. * Plan of Care - Brittany Lagos RN - 07/31/2024 12:03 PM CDT Spoke with patient and had discussion regarding home infusion patient/caregiver responsibilities. Patient verbalizes understanding and agreeable to managing infusions at home again. Benefits discussed and agreeable to cost. Waiting final recommendations. [facility] has accepted the patient. [facility] accepted for residential with soc 08/03 Brittany/Milana Lagos piercing artistHole Filler, [facility] home care [phone] * Plan of Care - Esther Ayala RN - 07/31/2024 12:23 AM CDT Goals: Clinical Goals for the Shift: VSS, BG management, rest Mcfp Patient Centered Goal for Treatment: d/c Problem: Lack of Knowledge Goal: Ability to describe self care measures that may prevent or decrease complications related to Type 1 Diabetes will improve Outcome: Progressing Goal: Ability to describe self care measures that may prevent or decrease complications related to Type 2 Diabetes will improve Outcome: Progressing Problem: Infection Goal: Absence of infection during hospitalization Outcome: Progressing Problem: Discharge Planning Goal: Understanding discharge needs will improve Outcome: Progressing Problem: Isolation Lack of Knowledge Goal: Knowledge of risk factors and measures for prevention of condition will improve Outcome: Progressing Problem: Isolation Physical Regulation Goal: Isolation- Spread of further infection will be prevented Outcome: Progressing Goal: Isolation- Complications related to the disease process, condition, or treatment will be avoided or minimized. Outcome: Progressing Problem: Fall Risk Goal: Ability to state ways to decrease the risk of falls will improve Outcome: Progressing Goal: Will remain free from falls Outcome: Progressing Goal: Will remain free from injury from falls Outcome: Progressing Problem: Lack of Knowledge Goal: Ability to develop a pain control plan will improve Outcome: Progressing Problem: Medication Goal: Satisfaction with pain management medication regimen will improve Outcome: Progressing Problem: Sensory Goal: Ability to identify factors that increase pain levels will improve while working to decrease the patient's pain levels Outcome: Progressing Problem: Coping Goal: Ability to cope will improve Outcome: Progressing Problem: Health Behavior Goal: Identification of resources available to assist in meeting health care needs will improve Outcome: Progressing Problem: Skin Integrity Impairment Risk Goal: Mobility will improve Outcome: Progressing Goal: Understanding of ways to prevent future skin breakdown will improve Outcome: Progressing Goal: Nutritional status will improve Outcome: Progressing Goal: Risk for impaired skin integrity will decrease Outcome: Progressing Problem: Respiratory Goal: Achieves optimal ventilation and oxygenation Outcome: Progressing Goal: Ability to maintain a clear airway will improve Outcome: Progressing Problem: Cardiovascular Goal: Cardiovascular status will improve Outcome: Progressing Problem: Skin/Tissue Integrity Goal: Skin integrity remains intact Outcome: Progressing Goal: Oral mucous membranes remain intact Description: Outcome: Progressing Problem: Musculoskeletal Goal: Return ADL status to a safe level of function Outcome: Progressing Goal: Ability to perform activities at highest level will improve Outcome: Progressing Problem: Genitourinary Goal: Urinary catheter remains patent Outcome: Progressing Problem: Neurosensory Goal: Achieves stable or improved neurological status Outcome: Progressing Goal: Achieves maximal functionality and self care Outcome: Progressing * Plan of Care - Zoe Oneil RN - 07/30/2024 5:49 PM CDT Problem: Respiratory Goal: Achieves optimal ventilation and oxygenation Outcome: Progressing Flowsheets (Taken 07/30/2024 1556) Achieves optimal ventilation and oxygenation: Assess for changes in respiratory status Manage oxygen therapy Goals: Clinical Goals for the Shift: Maintain stable vitals , adequate oxygenation, promote safety and comfort. Stacker Straightener Patient Centered Goal for Treatment: d/c Summary: pt. Has maintained good sats on 3L of o2 per [place]. Pt. Ready for DC home tomorrow. * Plan of Care - Anaid Miranda RN - 07/30/2024 3:56 PM CDT 07/30/24 1555 Discharge Planning Support System Friends/neighbors Anticipated discharge level of long term health care Type of Transportation Private vehicle Private Vehicle Information Friend Has discharge transport been arranged? No Post Acute Care Plan Home Care Services Yes Type of Home Care Services Home infusion;Home therapies Home Care Services Name and Phone Number [facility] HI OP Services N/A DME N/A Post Acute Care Facility N/A CM Progression of Care Update Per Medical Chart/Rounds/IDR: Patient not medically ready for discharge. ADD: 07/31/24 Discharge Barriers: None noted at this time. Education Needs Identified (plan): Nurse coordinator will educate patient on s/s of infection, complications, necessity of scheduled lab draws, and when to call BMT & Cellular Therapy. Patient isexpected to discharge to home with family. If throughout hospitalization additional needs arise, CMwill assist with discharge needs as necessary to ensure a safe discharge. F/U Appointments: Will be scheduled by nurse coordinator. Patient's Identified Problem/Goal Problem:?Ensure acute medical needs are met and that patient has a safe discharge plan. Goal:?Secure a discharge plan that patient/family are agreeable with?and ensure patient has continuum of care. Patient and/or family are agreeable with plan. lift manager will continue to follow and assist with discharge planning as needed. If any further discharge needs arise, please contact the covering case managers. Dori Miranda, MSN, RN [facility], [facility] [employer] [phone] * Plan of Care - Matilde Burnett RN - 07/30/2024 5:12 AM CDT Problem: Lack of Knowledge Goal: Ability to describe self care measures that may prevent or decrease complications related to Type 1 Diabetes will improve Outcome: Progressing Goal: Ability to describe self care measures that may prevent or decrease complications related to Type 2 Diabetes will improve Outcome: Progressing Problem: Infection Goal: Absence of infection during hospitalization Outcome: Progressing Problem: Respiratory Goal: Achieves optimal ventilation and oxygenation Outcome: Progressing Goal: Ability to maintain a clear airway will improve Outcome: Progressing Problem: Cardiovascular Goal: Cardiovascular status will improve Outcome: Progressing Problem: Skin/Tissue Integrity Goal: Skin integrity remains intact Outcome: Progressing Goal: Oral mucous membranes remain intact Description: Outcome: Progressing Problem: Musculoskeletal Goal: Return ADL status to a safe level of function Outcome: Progressing Goal: Ability to perform activities at highest level will improve Outcome: Progressing Problem: Genitourinary Goal: Urinary catheter remains patent Outcome: Progressing Problem: Neurosensory Goal: Achieves stable or improved neurological status Outcome: Progressing Goal: Achieves maximal functionality and self care Outcome: Progressing Problem: Discharge Planning Goal: Understanding discharge needs will improve Outcome: Progressing Problem: Isolation Physical Regulation Goal: Isolation- Spread of further infection will be prevented Outcome: Progressing Goal: Isolation- Complications related to the disease process, condition, or treatment will be avoided or minimized. Outcome: Progressing Problem: Skin Integrity Impairment Risk Goal: Mobility will improve Outcome: Progressing Goal: Understanding of ways to prevent future skin breakdown will improve Outcome: Progressing Goal: Nutritional status will improve Outcome: Progressing Goal: Risk for impaired skin integrity will decrease Outcome: Progressing Problem: Lack of Knowledge Goal: Ability to develop a pain control plan will improve Outcome: Progressing Problem: Medication Goal: Satisfaction with pain management medication regimen will improve Outcome: Progressing Problem: Sensory Goal: Ability to identify factors that increase pain levels will improve while working to decrease the patient's pain levels Outcome: Progressing Problem: Coping Goal: Ability to cope will improve Outcome: Progressing Problem: Health Behavior Goal: Identification of resources available to assist in meeting health care needs will improve Outcome: Progressing Goals: Clinical Goals for the Shift: Maintain stable vitals , adequate oxygenation, promote safety and comfort. Stacker Straightener Patient Centered Goal for Treatment: d/c Summary: Vital signs stable, on 4L of Oxyggen via NC , pain well controlled * Plan of Care - Anahi Ruff RRT - 07/29/2024 2:17 PM CDT Respiratory Medication Plan Situation: Patient is currently scheduled to receive Duo-Neb (Albuterol/Ipratropium), Q4 PRN. Home Medications: Current Outpatient Medications Medication Instructions acyclovir (ZOVIRAX) 400 mg, oral, Every 8 hours albuterol HFA (PROVENTIL HFA,VENTOLIN HFA,PROAIR HFA) 90 mcg/actuation inhaler 2 puffs, inhalation,Every 6 hours PRN albuterol 2.5 mg, nebulization, Every 6 hours PRN ascorbic acid (VITAMIN C) 500 mg, oral, Daily atorvastatin (LIPITOR) 40 mg, oral, Daily azithromycin (ZITHROMAX) 250 mg, oral, Daily cholecalciferol (VITAMIN D-3) 2,000 Units, oral, Every morning cyanocobalamin (VITAMIN B-12) 1,000 mcg, oral, Every morning dapagliflozin propanediol (FARXIGA) 10 mg, oral, Daily empagliflozin (JARDIANCE) 10 mg, oral, Daily ethambutoL (MYAMBUTOL) 1,200 mg, oral, Daily flash glucose scanning reader (BenchlingStyle Evaristo 2 [place]) [facility] [place] test blood glucose continuously flash glucose sensor (FreeStyle Evaristo 2 Sensor) kit Change sensor every 14 days qyfsenfugpm-ciijpxtkk-rvhiyoot (Trelegy Ellipta) 200-62.5-25 mcg inhaler 1 puff, inhalation, Daily gabapentin (NEURONTIN) 300 mg capsule TAKE ONE CAPSULE BY MOUTH FOUR TIMES DAILY @ [id number] guaiFENesin ER (MUCINEX) 600 mg, oral, 2 times daily isavuconazonium (CRESEMBA) 372 mg, oral, Daily magnesium oxide (MAG-OX) 250 mg, oral, Every other day montelukast (SINGULAIR) 10 mg, oral, Nightly mycophenolate mofetil (CELLCEPT) 1,000 mg, oral, 2 times daily nicotine (NICODERM CQ) 21 mg 1 patch, transdermal, Daily omega-3 fatty acids (LOVAZA) 1 g, oral, Daily ondansetron ODT (ZOFRAN-ODT) 4 mg, oral, Every 8 hours PRN oxyCODONE (ROXICODONE) 5 mg, oral, Every 4 hours PRN oxygen 2 L/min, each nostril, Nightly, Nightly and PRN pantoprazole DR (PROTONIX) 40 mg, oral, 2 times daily sodium chloride 3 % nebulizer solution 4 mL, nebulization, 2 times daily, Use albuterol in nebulizer first, then saline, then Aerobika sucralfate (CARAFATE) 1 g, oral, 4 times daily (with meals and nightly) tacrolimus 0.5 mg immediate-release capsule TAKE ONE CAPSULE BY MOUTH EVERY OTHER DAY voriCONAZOLE (VFEND) 200 mg, oral, 2 times daily Xarelto 20 mg tablet TAKE ONE TABLET BY MOUTH DAILY AT 9 AM zinc gluconate 50 mg, oral, Daily Bronchodilator Assessment Score: 8 Pulmonary Status Pulmonary Impairment (Acute or Chronic) Surgical Status No Surgery Chest X-Ray Infiltrates, Lung Mass, Atelectasis, Pleural Effusion, CHF, Pulm Edema Resp Pattern Regular, Respiratory Rate less than or equal to 20 Mental Status Alert, Oriented, Cooperative Cough Strong, Non-Productive Breath Sounds Decreased Bilaterally/Coarse Level of Activity Ambulatory O2 Requirement 1-3 Liters or < 35% Oxygen therapy: SpO2 96 % O2 Therapy Supplemental oxygen Pulse Rate: Pre Treatment 62 bpm Post Treatment 60 Respiratory Rate: Pre Treatment 18 bpm Post Treatment 18 Respiratory Assessment: Resp Effort Unlabored Depth & Rhythm Regular Assessment Symmetrical BRONCHODILATOR EVALUATION /ASSESSMENT SCORE 0-6 Q4 PRN Therapy* or Home Regimen, Intermittent wheezing, or SOB 7-13 QID Therapy Wheezing or periodic SOB 14-19 Q6 Therapy Increased wheezing and/or SOB 20-26 Q4 Therapy Increased wheezing and/or SOB, Difficulty sleeping >26 Contact MD/SAJI Severe Wheezing, SOB, Difficulty sleeping Note: Score gives a general indication of pulmonary risk. Clinical judgement may yield a different recommended frequency. Toleration: Patient tolerated treatment well. Plan: I have spoken with the patient, and we have agreed to keep the current orders, without change. RT will continue to monitor the patient's progress. * Plan of Care - Quiana Rai, BECKI - 07/29/2024 11:35 AM CDT Goals: Clinical Goals for the Shift: vss, safety Mcfp Patient Centered Goal for Treatment: d/c Problem: Infection Goal: Absence of infection during hospitalization Outcome: Progressing Flowsheets (Taken 07/29/2024 1135) Absence of infection during hospitalization: Assess and monitor for signs and symptoms of infection Monitor lab/diagnostic results Monitor all insertion sites i.e., indwelling lines, tubes and drains and evaluate for need daily Administer medications as ordered Summary: * Plan of Care - Brittany Lagos RN - 07/29/2024 11:17 AM CDT Infusion referral received. Will need to assess patient and/or family for home infusion appropriateness, verify benefits for home infusion, and educate patient/family on home infusion process. Referrals are processed between 8am - 4:30pm Saturday - Saturday. For after hour emergencies please call [phone]. Any referrals received after 4pm will be processed the next day. For discharge planning purposes please keep in mind that referrals can take 24 or more hours to process. Thank You Brittany/Milana Lagos piercing artistHole Filler, [facility] home care [phone] * Plan of Care - Celso Teran - 07/29/2024 4:41 AM CDT Problem: Infection Goal: Absence of infection during hospitalization Outcome: Progressing Problem: Cardiovascular Goal: Cardiovascular status will improve Outcome: Progressing Goals: Clinical Goals for the Shift: vss, safety Mcfp Patient Centered Goal for Treatment: d/c Summary: * Provider Query - Stephani Reddy MD - 07/28/2024 8:31 PM CDT THIS IS A VALIDATION QUERY - ADDITIONAL CLINICAL INFORMATION REQUESTED Based on the [facility] approved criteria for respiratory failure (see below), verify if this documented diagnosis is still accurate. ___ Acute hypoxic Respiratory Failure ruled out ___ Acute Hypoxic Respiratory Failure present and treated, document detailed rationale and clinicalimpression in provider response below _X__ Hypoxemia on admit with chr.hypoxic resp failure poa ___ Chronic Respiratory Failure only poa ___ Other- specify below Additional Provider Response: Clinical Indicators/Treatments: O2 sat 96-100 since admit to [facility] H/P 6 L O2 in ED at admit, 4 L @home 07/23-07/27 Acute on chronic respiratory failure (Hx Mycoplasma avium and cavitary lung disease, on home oxygen requirements 07/24 ID: more likely progression of MAC, COPD, and CHF over new infection. per vs graph O2 [id number] on 07/23, RR range 16-19, no documented BIPAP @ [facility] References: Respiratory Failure Screening Criteria Acute Respiratory Failure PATIENT DOES NOT NEED TO MEET ALL CRITERIA, INTUBATION IS NOT REQUIRED. Supplemental Oxygen New supplemental O2 greater than or equal to 40 percent (5 liters/minute per nasal cannula) or New oxygen requirement in setting of 1 or more of the below results or vitals, Results or Vitals (1 or more of the following) pCO2 greater than 50 and pH less than 7.35 pO2 at or below 55 mmHg or SpO2 (pulse oximetry) less than 88% on RA pO2 decrease or pCO2 increase by 10 mmHg from baseline if known P/F ratio (pO2/FiO2) less than 300 Other signs and symptoms may include: Tachypnea, dyspnea, shortness of breath, wheezing Air hunger Use of accessory muscles of respiration Inability to speak in full sentences Cyanosis or pallor Anxiety or restlessness Positioning of the patient???s body (for example, tripod breathing) Chronic Respiratory Failure Dependence on continuous (24 hours a day) home O2 or non-invasive mechanical ventilation (BiPAP, AVAPS, etc.) Acute on Chronic Respiratory Failure Exacerbation or decompensation of chronic respiratory failure recognized by any of the following: pCO2 greater than 50 mmHg + pH less than 7.35 Increase in baseline pCO2 (if known) by 10 mmHg or more pO2 less than 55 mmHg or SpO2 less than 88% on patient???s baseline oxygen rate or higher Worsening dyspnea requiring an increase in chronic supplemental oxygen Greater hypoxemia (decreased pO2 or SpO2 from baseline, if known) If provider believes patient has respiratory failure in the absence of above clinical indicators, please document rationale and clinical impression in detail Respiratory Failure References [employer] Hospitalist Sep 2013 Coding Clinics: 3rd Q 1987, p 7 and 2nd Q 1989, p.20 [email or web address]-[email or web address] [email or web address]-[email or web address]-[email or web address]-text-only.[email or web address] From the ICD-10-CM Coding Guidelines, use of terms such as likely, suspected, possible, or probable(associated with a specific diagnosis that is being evaluated, monitored, or treated as if it exists) are acceptable and can be coded in the inpatient setting when documented at the time of discharge. This documentation will become part of the patient's medical record. Thank you! Ernestine Pardo RN CDIS Clinical Documentation Integrity [phone] [email or web address] * Plan of Care - Sudha Chowdhury RN - 07/28/2024 3:55 PM CDT Neuro: x4. Resp: 3L NC. Cardiac: VSS. Skin: Generalized bruising. GI/: Voiding in urinal. BM on shift in BSC. Activity:SBA. Pain: Denies pain on shift. * [facility]IN Note - Anaid Miranda RN - 07/28/2024 3:38 PM CDT Images from the original note were not included. Patient Information: OT Eval and Treat Last 72 Hours OT Evaluation Row Name 07/27/24 1000 07/27/24 0958 Chart Reviewed -- Yes -CO Session Type -- Evaluation -CO OT Received On -- 07/27/24 -CO Safe Environment -- Arm band checked;Session completed bedside;Patient found sitting at edge of bed;Gait belt utilized for all out of bed mobility -CO Subjective -- Agreeable to Therapy -CO Family/Caregiver Present -- No -CO Occupational Therapy-Patient Goal -- Pt is agreeable to goals set by OT in the acute care setting -CO Precautions -- Fall risk;Safety -CO Type of Home -- Mobile Home -CO Home Layout -- One level;Performs ADLs on one level;Able to live on main level with bedroom/bathroom laundry on the main floor -CO Home Access -- Stairs to enter with rails -CO Entrance Stairs-Rails -- Both -CO Entrance Stairs-Number of Steps -- 5 -CO Bathroom Shower/Tub -- Tub/shower unit -CO Bathroom Toilet -- Standard -CO Bathroom Equipment -- Shower chair -CO Bathroom Accessibility -- Accessible via walker -CO Home Mobility Equipment-Available -- 4-Wheeled walker -CO Home Mobility Equipment-Currently Using -- 4-Wheeled walker prn use when I feel weak -CO Level of [place] -- Independent with ambulation;Independent functional transfers;Independent with ADLs -CO Lives With -- Other (Comment) Roomate (Lissy Job) -CO Receives Help From -- Friend(s) forming department end finder care from roommate Lissy -CO Driving -- No -CO Mode of Transportation -- Driven by others;Friends or medical transport -CO ADL Assistance -- Independent -CO Instrumental ADL (IADL) Assistance -- Needs assistance -CO Meal Prep -- Independent -CO Laundry -- Independent -CO Cleaning -- Independent -CO Shopping -- -- Roommate completes task -CO Block Cleaner -- Independent -CO Medical Management -- Independent -CO Vocational/Occupation -- On disability -CO Fall within the last 6 months -- Yes -CO Fall within the last 6 months comment -- 1 due to tripping -CO ADLS (WDL) -- X -CO Grooming: Where assessed -- Edge of bed -CO Grooming: Level of assistance -- Moderate Assist -CO Grooming: Assistance with -- Balance set up for task; total for balance -CO LE Dressing: Where assessed -- Edge of bed -CO LE Dressing: Level of assistance -- Standby Assist -CO LE Dressing: Assistance with -- Balance -CO Toileting: Where assessed -- -- use of urinal EOB -CO Toileting: Level of assistance -- Standby Assist -CO Toileting: Assistance with -- Balance -CO Room Mobility comment -- Unable to safely assess 2/2 [place] -CO Toilet Transfers Comments -- Unable to safely assess 2/2 [place] -CO Pain Assessment -- 0-10 -CO Pain Score -- 9 -CO Pain Location -- Chest -CO Pain Orientation -- Generalized -CO Pain Interventions -- -- RN present and aware -CO Endurance -- Tolerates 10 - 20 min activity with multiple rests -CO Current Vision -- Wears glasses only for reading -CO Arousal/Alertness -- Alert;Appropriate responses to stimuli -CO Attention Span -- Appears intact -CO Memory -- Decreased short term memory as observed via SBT results. -CO Current communication -- Appears Intact -CO Orientation -- Oriented X4 (person, place, time, situation) -CO Following Commands -- Follows all commands and directions without difficulty -CO Safety Judgment -- Good awareness of safety precautions -CO Awareness of Errors -- Good awareness of errors made -CO Insight -- Fully aware of deficits -CO Problem Solving -- Able to problem solve independently -CO Compliance/Behavior -- Easy to engage -CO Perseveration -- Not present -CO Cognitive Tests -- Yes -CO What year is it now? -- 0 -CO What month is it now? -- 0 -CO Repeat this name and address after me -- Josué Neff [address] [place] [address] -CO Without looking at the clock, tell me what time it is -- 3 -CO Count aloud backwards from 20-1 -- 0 -CO Say the months of the year backwards in reverse order -- 0 -CO Repeat the name and address I asked you to remember -- 4 -CO Short Blessed Total Score -- 7 -CO Short Blessed Comments -- Scores of 7 and higher indicate need for further cognitive testing to rule out a dementing disorder. -CO Light Touch -- WFL -CO Numbness/Tingling -- Yes reports numbness in b/l feet -CO Sensation Comments -- 1+ edema noted in pt's BLE/BUEs -CO Motor Planning -- Appears intact -CO Movements Are Fluid and Coordinated -- 1 -CO Fine Motor -- WFL -CO Serial Opposition -- WFL -CO Hand Preference -- Right -CO Coordination -- Functional -CO Gross Grasp -- Functional -CO RUE Grasp -- Gross grasp 5/5 -CO LUE Grasp -- Gross grasp 5/5 -CO Balance Tests -- Yes -CO Sitting Balance -- 1 -CO Arises -- 0 -CO Attempts to Arise -- 0 -CO Immediate Standing Balance (First 5 Seconds) -- 0 -CO Standing Balance -- 1 -CO Nudged -- 0 -CO Eyes Closed -- 0 -CO Turned 360 Degrees: Steadiness -- 0 -CO Turned 360 Degrees: Continuity of Steps -- 0 -CO Sitting Down -- 0 -CO Balance Score -- 2 -CO Balance -- Yes -CO Static Sitting-Balance Support -- Feet supported;No upper extremity supported -CO Static Sitting-Sitting Surface -- Bed -CO Static Sitting-Level of Assistance -- Independent -CO Dynamic Sitting-Balance Support -- Feet supported;No upper extremity supported -CO Dynamic Sitting-Balance -- Lateral lean;Forward lean;Reaching for objects;Reaching across midline -CO Dynamic Sitting-Sitting Surface -- Bed -CO Dynamic Sitting-Level of Assistance -- Distant supervision -CO Static Standing-Balance Support -- No upper extremity supported -CO Static Standing-Standing Surface -- Floor -CO Static Standing-Level of Assistance -- Close supervision -CO Dynamic Standing-Balance Support -- No upper extremity supported -CO Dynamic Standing-Balance -- Lateral lean;Forward lean;Reaching for objects;Reaching across midline -CO Dynamic Standing-Standing Surface -- Floor -CO Dynamic Standing-Level of Assistance -- Close supervision -CO Bed Mobility -- Yes -CO Bed Mobility From 1 -- -CO Edge of bed -CO Bed Mobility Type 1 -- -CO To and from -CO Bed Mobility to 1 -- -CO Supine -CO Level of Assistance 1 -- -CO Modified Independent -CO Bed Mobility Comments 1 -- -CO HOB elevated -CO Transfer -- -CO Yes -CO Transfer From 1 -- -CO Sit -CO Transfer Type 1 -- -CO To and from -CO Transfer to 1 -- -CO Stand -CO Technique 1 -- -CO Sit to stand;Stand to sit -CO Transfer Device 1 -- -CO No device -CO Transfer Level of Assistance 1 -- -CO Standby Assist -CO Trials/Comments 1 -- -CO Pt required assistance due to impaired balance, decreased force production, to block knees to prevent buckling, and to control descent. -CO RUE Assessment WFL -CO WFL -CO LUE Assessment WFL -CO WFL -CO Comments -- Pt educated on discharge recommendations of home with supervision and intermittent assistance as well as the OT POC for while in the acute care setting. Pt is agreeable to recommendaitonsat this time. -CO Putting on and taking off regular lower body clothing -- 3 -CO Bathing -- 3 -CO Toileting -- 3 -CO Putting on and taking off upper body clothing -- 3 -CO Personal Grooming -- 3 -CO Eating Meals -- 4 -CO Total Score (range 6-24) -- 19 -CO Score Interpretation -- 40.22 -CO Safe Environment End of Therapy Session -- Call light within reach;Overbed table within reach;RN notified;Patient left supine in bed -CO Problem List -- Decreased endurance;Decreased fine motor control;Decreased functional mobility;Decreased ADL independence;Decreased IADL independence;Pain -CO Barriers to Discharge -- Current Mobility Status;Current ADL Status -CO Barrier Comments -- Pt is a fall risk -CO Plan -- If this is the last note, consider this the discharge summary;Plan of care initiated -CO OT Recommendation -- [facility] Facility pending further evaluation of mobility -CO Patient at high risk for -- Falls;Readmission;Injury due to balance deficits;Prolonged dependence for self care tasks;Developing secondary complications: poor health management;Injury due to decreased ability to care for self;Injury due to reduced functional status;Injury at home as patient has notreturned to prior level of function -CO Recommend SNF due to -- Risk of injury at home;Unable to safely care for self in the home;Skilled therapy needed to address care for self in the home;Skilled therapy needed to address functional deficits;Skilled therapy needed for patient to return to prior level of independence -CO OT Frequency during current admission -- 2-3x/wk -CO Treatment/Interventions during current admission -- ADL/IADL retraining;Balance Training;Bed mobility;Compensatory technique education;Endurance training;Functional activity;Functional mobility training;Functional transfer training;Therapeutic activity;Strengthening;Therapeutic exercise;Transfer tra ining;Parent/caregiver training and education -CO OT - Next Appointment -- 07/29/24 -CO OT - OK to Discharge -- No -CO OT Evaluation Complete -- Yes -CO Start Time -- 950 -CO Stop Time -- 1020 -CO Time Calculation (min) -- 29 min -CO User Feliz (r) = Recorded By, (t) = Taken By, (c) = Cosigned By Initials Name Effective Dates CO J Carlos Frazier, OT 08/10/19 - OT Treatment No documentation. OT Notes 07/27/2024 12:02 PM Progress Notes signed by J Carlos Frazier, OT , OT Eval and Treat Last Documented OT ASSESSMENT FLOWSHEET LAST DOCUMENTED (most recent) OT Evaluation - 07/28/24 1514 Bathing Bath Bathed/showered with chlorhexidine (CHG) OT TREATMENT FLOWSHEET LAST DOCUMENTED (most recent) OT Treatment - 07/28/24 1514 Bathing Bath Bathed/showered with chlorhexidine (CHG) OT Notes 07/27/2024 12:02 PM Progress Notes signed by J Carlos Frazier, OT , PT Eval and Treat Last 72 Hours PT Evaluation Row Name 07/27/24 0832 Chart Reviewed Yes -KD Session Type Evaluation -KD Safe Environment Arm band checked;Patient found in supine;Gait belt utilized for all out of bed mobility -KD Subjective Agreeable to Therapy -KD Family/Caregiver Present No -KD Physical Therapy-Patient Goal to go home -KD Type of Home Mobile Home -KD Home Layout One level -KD Home Access Stairs to enter with rails -KD Entrance Stairs-Rails Both -KD Entrance Stairs-Number of Steps 5 -KD Home Mobility Equipment-Available 4-Wheeled walker;Wheeled walker -KD Home Mobility Equipment-Currently Using 4-Wheeled walker in community only -KD Level of [place] Independent functional transfers;Independent with ambulation -KD Lives With Other (Comment) Roommate -KD Receives Help From Friend(s) Roommate available forming department end finder -KD Fall within the last 6 months Yes -KD Fall within the last 6 months comment pt reports a few falls due to tripping -KD Activity Tolerance Comments marci rated somewhat hard -KD Arousal/Alertness Alert;Appropriate responses to stimuli -KD Orientation Oriented X4 (person, place, time, situation) -KD Following Commands Follows all commands and directions without difficulty -KD Bed Mobility From 1 Supine -KD Bed Mobility Type 1 To -KD Bed Mobility to 1 Edge of bed -KD Level of Assistance 1 Modified Independent -KD Bed Mobility Comments 1 increased time required -KD Transfer From 1 Sit -KD Transfer Type 1 To and from -KD Transfer to 1 Stand -KD Technique 1 Sit to stand;Stand to sit -KD Transfer Device 1 4 wheeled walker -KD Transfer Level of Assistance 1 Standby Assist -KD Trials/Comments 1 increased time required -KD Distance (ft) 1 130 -KD Surface 1 Level tile -KD Device 1 Wheeled walker -KD Assistance 1 Standby Assist -KD Gait: Requires verbal cues to 1 Pace activity;Improve upright posture -KD Gait Deviations 1 Base of support - decreased;Harini - decreased;Heel strike - decreased;Step length - decreased -KD RLE Assessment WFL -KD LLE Assessment WFL -KD How much difficulty does the patient have: Turning over in bed 4 -KD How much difficulty does the patient currently have: Sitting down and standing up from a chair witharms? 3 -KD How much difficulty does the patient have: Moving from lying on back to sitting on the side of the bed? 4 -KD How much difficulty does the patient have: Moving to and from a bed to a chair including wheelchair? 3 -KD How much help does the patient currently need: Walk in hospital room? 3 -KD How much help from another person does the patient currently need: Climbing 3-5 steps with a railing? 3 -KD Total 6 Click Score (range 6-24) 20 -KD Score Interpretation 41.05 -KD Safe Environment End of Therapy Session RN notified;Call light within reach;Overbed table within reach;Patient left sitting at edge of bed -KD Prognosis Good -KD Problem List Gait deviations;Decreased strength;Decreased endurance;Impaired balance;Decreased mobility -KD Problem List Comments PT Diagnosis: Pt's SOB, VRE results in above listed activity deficits and impairments which prevent full participation in home and community mobility -KD Plan Plan of care initiated;If this is the last note, consider this the discharge summary -KD PT Recommendation/Plan Home Health PT;Home with intermittent assist -KD Patient at high risk for Falls;Readmission -KD PT Frequency during current admission 3-5x/wk -KD Treatment/Interventions during current admission Balance Training;Bed mobility;Endurance training;Gait training;Stair training -KD PT Equipment Recommended None -KD PT Evaluation Complete Yes -KD Start Time 857 -KD Stop Time 935 -KD Time Calculation (min) 38 min -KD User Feliz (r) = Recorded By, (t) = Taken By, (c) = Cosigned By Initials Name Effective Dates KD Estefani Dolan, PT 10/19/19 - PT TREATMENT (Last 168 Hours) PT Treatment No documentation. PT Notes 07/27/2024 11:47 AM Progress Notes signed by Estefani Dolan, PT , PT Eval and Treat Last Documented OT ASSESSMENT FLOWSHEET LAST DOCUMENTED (most recent) PT Evaluation - 07/28/24 1514 Bathing Bath Bathed/showered with chlorhexidine (CHG) PT TREATMENT (most recent) PT Treatment - 07/28/24 0905 Pain Assessment Pain Assessment No/denies pain PT Notes 07/27/2024 11:47 AM Progress Notes signed by Estefani Dolan PT * Plan of Care - Anaid Miranda RN - 07/28/2024 3:23 PM CDT 07/28/24 1522 Discharge Planning Support System Friends/neighbors Anticipated discharge level of long term health care Does the patient need discharge transport arranged? No Type of Transportation Private vehicle Private Vehicle Information Friend Has discharge transport been arranged? No Post Acute Care Plan Home Care Services Yes Type of Home Care Services Home therapies Home Care Services Name and Phone Number Patient has not chosen agency at this time. OP Services N/A DME N/A Post Acute Care Facility N/A CM Progression of Care Update Per Medical Chart/Rounds/IDR: Patient not medically ready for discharge. ADD: 07/30/24 Discharge Barriers: None noted at this time. Education Needs Identified (plan): Nurse coordinator will educate patient on s/s of infection, complications, necessity of scheduled lab draws, and when to call BMT & Cellular Therapy. Patient isexpected to discharge to home with family. If throughout hospitalization additional needs arise, CMwill assist with discharge needs as necessary to ensure a safe discharge. Has PT rec for PT. List provided to patient. Currently under review. CM will continue to follow to place referrals. F/U Appointments: Will be scheduled by nurse coordinator. Patient's Identified Problem/Goal Problem:?Ensure acute medical needs are met and that patient has a safe discharge plan. Goal:?Secure a discharge plan that patient/family are agreeable with?and ensure patient has continuum of care. Patient and/or family are agreeable with plan. lift manager will continue to follow and assist with discharge planning as needed. If any further discharge needs arise, please contact the covering case managers. Dori Miranda, MSN, RN [facility], [facility] [employer] [phone] * Summary of Treatment Recommendations Non-Billable - Sonia Pina, VAMP STITCHER - 07/28/2024 12:17 PM CDT Images from the original note were not included. Infectious Diseases Sign Off Recommendations for Patients on Stacker Straightener IV Antibiotics Diagnosis: M. Avium pneumonia Retained Infected Hardware: No Site of Infection(s): lung Organism(s): M. 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 Pt was recently started on tx for M. Avium lung infection. Bronch (06/16) grewStenotroph and M. Avium. Pt was treated for Stenotroph with Brian x 10 days. Was seen in ID clinic (07/17) & was started on Azithro & Ethambutol (07/08), planned Amikacin & clofazimine. CT (07/21) showed unchanged cavitary mycobacterial disease and lower lobe mucus plugging with nodularity suspicious for superimposed aspiration pneumonia. Pt has been afebrile but did have leukocytosis(though he was started on Pred 20mg BID x 5 days on 07/19 for COPD exacerbation). Pt was continued on Azithro and Ethambutol. Amikacin was started (07/24). Audiology evaluation was performed for baseline measures - Mild-mod hearing loss in R ear, mild-severe loss in L ear. Clofazimine being investigated by outpt ID clinic. Awaiting M. Avium susceptibilities. Ethambutol peak drawn (07/28) - f/u results. QTc (07/26) 514. Follow Up Plan: fax results to [phone], follow up with Dr. Pinzon in 3 wks, After discharge additional questions can be directed to the clinic at [phone], Patient has been educated about the risks and benefits of IV antibiotics (OPAT), and ID clinic will arrange f/u. Important Information for Healthcare Providers: Antibiotic Plan: Antibiotics: Amikacin IV Ethambutol Azithromycin Anticipated stop date for IV antibiotics: indefinite at present Infectious disease physician that saw the patient during hospital admission: Jigar Hay Recommended Laboratory Monitoring: Weekly CBC, CMP ALL RESULTS SHOULD BE FAXED TO INFECTIOUS DISEASE CLINIC AT: [phone] PLEASE CALL THE INFECTIOUS DISEASES CLINIC WITH ANY QUESTIONS AT: [phone] Leaving the Hospital on IV Antibiotics Information for Patients and Families Infectious Diseases Because of your infection, you must be treated with antibiotics by vein (IV). Timing is important! You should receive antibiotics on a regular schedule and not skip doses. This will give your body enough antibiotic to fight your infection. Finishing is important! You must finish all antibiotics unless told otherwise by your doctor. Taking all of your antibiotics will help get rid of your infection and prevent resistance to antibiotics. What to expect Labs: A nurse will draw your blood about 1-2 times each week. Labs help us monitor your infection and watch out for antibiotic side effects. Telephone calls: You will be receiving lots of phone calls! People who will need to contact you include the infectious disease clinic, home health nurses, home infusion team (antibiotic providers), pharmacists, and doctors. Please make sure we have a working phone number for you so you can receive these calls that are important for your health Please make sure your voicemail is set up AND has space for us to leave a message (just in case we miss you!) Catheter and Wound care Always wash hands with antibacterial soap and use alcohol-based hand cytogenetics technologist before touching yourcatheter or changing wound dressings. When drying hands, only use a clean paper towel. Don't forget to scrub the ???hub?? (tip of your catheter)! Do this with an alcohol wipe before each use. Scrub for 30 seconds (minimum) and allow to dry without blowing on it or waving your hand across it. Refer to your home care service's instructions for taking care of your IV line and hooking up your antibiotics. Follow-up Appointment Keeping your follow-up appointment is very important! Below are things that may happen or be decided at your infectious diseases clinic appointment. Look at the infection site and IV to look for problems Determine how long you need to be on IV antibiotics Prescribe oral (pill) antibiotics after finishing IV antibiotics if needed Depending on how you are doing, we may order additional blood work or imaging tests to evaluate your infection Arrange for your IV line to be removed when the IV antibiotics are completed Questions or Concerns?? Below are reasons to call the Infectious Diseases Clinic RIGHT AWAY! 1. Watery diarrhea more than 3 times in 24 hours. 2. Nausea, vomiting, and/or belly pain 3. Rash and/or itching 4. Chills 5. Drenching night sweats 6. Fever >100.3 7. Increasing redness and/or drainage from a wound 8. Confusion or personality changes 9. Antibiotic catheter problems. Based on your symptoms, we may be able to help you over the phone or have your home health nurse help you. In some cases, you may need to go to the Emergency Room. Contact Infectious Diseases Clinic: Toll-free: [phone] Hospital ID Doctor: Bharti Whitley [facility] Infectious Diseases Offices [facility] [place] [facility] [address], [address] [place] [address] Patient parking available north of [facility] General Infectious Diseases and [facility] Offices [facility] ID Clinic [address] [place] [address] [facility] ID Clinic [address], [address] [place] [address] * Plan of Care - Snow Alfonso RN - 07/27/2024 10:49 PM CDT Problem: Lack of Knowledge Goal: Ability to describe self care measures that may prevent or decrease complications related to Type 1 Diabetes will improve Outcome: Progressing Goal: Ability to describe self care measures that may prevent or decrease complications related to Type 2 Diabetes will improve Outcome: Progressing Problem: Infection Goal: Absence of infection during hospitalization Outcome: Progressing Problem: Discharge Planning Goal: Understanding discharge needs will improve Outcome: Progressing Problem: Isolation Lack of Knowledge Goal: Knowledge of risk factors and measures for prevention of condition will improve Outcome: Progressing Problem: Isolation Physical Regulation Goal: Isolation- Spread of further infection will be prevented Outcome: Progressing Goal: Isolation- Complications related to the disease process, condition, or treatment will be avoided or minimized. Outcome: Progressing Problem: Fall Risk Goal: Ability to state ways to decrease the risk of falls will improve Outcome: Progressing Goal: Will remain free from falls Outcome: Progressing Goal: Will remain free from injury from falls Outcome: Progressing Problem: Lack of Knowledge Goal: Ability to develop a pain control plan will improve Outcome: Progressing Problem: Medication Goal: Satisfaction with pain management medication regimen will improve Outcome: Progressing Problem: Sensory Goal: Ability to identify factors that increase pain levels will improve while working to decrease the patient's pain levels Outcome: Progressing Problem: Coping Goal: Ability to cope will improve Outcome: Progressing Problem: Health Behavior Goal: Identification of resources available to assist in meeting health care needs will improve Outcome: Progressing Problem: Skin Integrity Impairment Risk Goal: Mobility will improve Outcome: Progressing Goal: Understanding of ways to prevent future skin breakdown will improve Outcome: Progressing Goal: Nutritional status will improve Outcome: Progressing Goal: Risk for impaired skin integrity will decrease Outcome: Progressing Problem: Respiratory Goal: Achieves optimal ventilation and oxygenation Outcome: Progressing Goal: Ability to maintain a clear airway will improve Outcome: Progressing Problem: Cardiovascular Goal: Cardiovascular status will improve Outcome: Progressing Problem: Skin/Tissue Integrity Goal: Skin integrity remains intact Outcome: Progressing Goal: Oral mucous membranes remain intact Description: Outcome: Progressing Problem: Musculoskeletal Goal: Return ADL status to a safe level of function Outcome: Progressing Goal: Ability to perform activities at highest level will improve Outcome: Progressing Problem: Genitourinary Goal: Urinary catheter remains patent Outcome: Progressing Problem: Neurosensory Goal: Achieves stable or improved neurological status Outcome: Progressing Goal: Achieves maximal functionality and self care Outcome: Progressing Goals: Clinical Goals for the Shift: VSS, remain free from falls/injury Summary: * Consults, Subsequent - Krista Hay DO - 07/27/2024 7:31 PM CDT Infectious Disease Subsequent Consult Note Infectious Disease Team: Transplant Contact Information: Please see [facility] Treatment Team listing for up-to-date contact information. Subjective Chief complaint: Pulmonary MAC Interval History: - NAEO. AFVSS on 4L NC. - WBC 12.1, Hgb 9.2, Plt 305 - QTc 484 on 07/26 - Baseline hearing exam completed today with Audiology. Mild-mod hearing loss in R ear, mild-severeloss in L ear. - No complaints this morning. Objective Anti-infectives (From admission, onward) Start Dose/Rate Route Frequency Ordered Stop 07/25/24 09 azithromycin (ZITHROMAX) tablet 500 mg 500 mg oral Daily 07/24/24 1616 07/03/25 0859 07/24/24 1700 amikacin (AMIKIN) 900 mg in sodium chloride 0.9% 36 mL (25 mg/mL) IV syringe 15 mg/kg ?? 59 kg 36 mL/hr over 60 Minutes intravenous Once per day on Saturday07/24/24 16207/24/24 0900 ethambutoL (MYAMBUTOL) tablet 1,200 mg 1,200 mg oral Daily 07/23/249 07/03/25 0859 07/24/24 0000 acyclovir (ZOVIRAX) tablet 400 mg 400 mg oral Every 8 hours 07/23/24231807/24/24 0000 voriCONAZOLE (VFEND) tablet 200 mg 200 mg oral 2 times daily 07/23/24 2319 Vitals: 24hr Min/Max: Temp Min: 36.5 ??C (97.7 ??F) Max: 36.7 ??C (98.1 ??F) Pulse Min: 64 Max: 93 BP Min: 81/52 Max: 116/77 Resp Min: 18 Max: 18 SpO2 Min: 96 % Max: 100 % Most Recent : Vitals: 07/27/24 1714 BP: Pulse: 69 Resp: Temp: SpO2: I/O last 2 completed shifts: In: 1410 [P.O.:1410] Out: 2200 [Urine:2200] Active LDAs: Peripheral IV 07/24/24 20 G Anterior;Left Brachial (Active) Number of days: 1 Physical Exam: Constitutional: NAD, thin appearing Eyes: EOMI, anicteric. HENT: NCAT. Lungs: Decreased air movement bilaterally, unlabored, no expiratory wheezes, respiring comfortably on 4L NC Cardiovascular: RRR, normal S1 and S2, no murmurs GI: Soft, non-tender, non-distended, bowel sounds positive Skin: No rashes, lesions or bruises Extremities: Normal without edema or cyanosis Neurologic: AOx4, no gross neurologic deficits Psychiatric: Appropriate affect and mood. Pleasant and conversational. Lab/Radiology/Diagnostic Review: Lab Results Component Value Date MICROBIOLOGY (.) 07/15/2024 Final Report: Growth indicates upper respiratory lalito. MICROBIOLOGY Final Report: No growth 07/14/2024 MICROBIOLOGY Final Report: No growth 07/14/2024 MICROBIOLOGY (.) 06/19/2024 Final Report: Enterococcus species, vancomycin resistant MICROBIOLOGY Final Report: No growth 06/16/2024 MICROBIOLOGY Final Report: No growth 06/16/2024 Radiology results were reviewed. CT Body Outside Consult Result Date: 07/24/2024 1. 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 These findings are not significant changed from CT dated 07/14/2024, but remain worse than CT dated 05/28/2024. 2. Lower lobe mucus plugging with nodularity suspicious for superimposed aspiration pneumonia, which is new from CT dated 05/28/2024. The findings, conclusions and recommendations within thisreport do not replace the initial findings, conclusions and recommendations made at the facility where the study was performed based upon the imaging and clinical condition at that time. Comparison with the prior report and clinical history is necessary. The provided images may or may not representthe match-e-be-nash-she-wish band source data set and thus may contain changes that may lower the accuracy of this second-opinion interpretation. Dictated by: Slick Guzman M.D. The radiology attending physician has personally reviewed this study, and had reviewed and/or edited this written report and agrees with it.Electronically signed by: Cameron Lenz M.D. XR Outside Reference Result Date: 07/24/2024 These images are for Reference purposes only and have not been reviewed by [facility] Radiology. There will be no report generated by a [facility] Radiologist. No results found. Assessment/Plan Patient is a 58 y.o. male with severe emphysematous COPD requiring oxygen support, intermittent tobacco use, malnutrition, AML s/p alloHSCT (2008) in remission, and recent smear-proven pulmonary MAC infection (dx'd 06/16/2024) on azithromycin and ethambutol, here for acute on chronic respiratory failure with worsening pulmonary disease on CT imaging. ID is consulted for management recommendations. 1) Pulmonary Mycobacterium avium infection - CT chest wo (05/28): stable bilateral upper lobe consolidations and new JASEN consolidation - Bronchoscosopy with BAL (06/16): culture positive for abundant Mycobacterium avium (sensitivities pending) - Established care with Dr. Pinzon on 07/07. Started on Azithromycin + Ethambutol with plan to startamikacin and clofazimine pending follow up. Rifamycin deferred due to voriconazole ddi. - CT-PE (07/21): progressive cavitary mycobacterial disease compared to prior (05/28) imaging - QTc (07/26) 484, following increased azithromycin dose Recommendations: - Continue ethambutol 1200mg daily. Please obtain 2-3 hr peak level. - Continue azithromcyin 500mg daily - Continue amikacin 15 mg/kg on -- with target peak of 30-35. Check trough/peak level after third dose (07/29). Anticipate 4-6 week course. - Will consider adding clofazimine while outpatient since QTc <500 - Baseline audiology exam completed 07/27. Will need recheck every two weeks while on amikacin. Thank you for the opportunity to participate in the care of your patient. We will continue to follow. Please contact the Transplant ID fellow as listed on Dread with any questions or concerns. Patient was seen and discussed with Dr. Hay who helped formulate above plan. Today, I am treating the patient for pulmonary mycobacterial avium infection which can cause respiratory failure, sepsis, and in the short-term future in the absence of appropriate treatment, as described in the note. Bony Ochoa MD PhD Infectious Diseases Fellow I have seen and examined the patient on 07/27/24. I agree with the findings and plan of care as documented in the resident's/fellow's note.. Krista Hay DO * Plan of Care - Iza Beltran RN - 07/27/2024 4:17 PM CDT Problem: Lack of Knowledge Goal: Ability to describe self care measures that may prevent or decrease complications related to Type 1 Diabetes will improve Outcome: Progressing Goal: Ability to describe self care measures that may prevent or decrease complications related to Type 2 Diabetes will improve Outcome: Progressing Problem: Infection Goal: Absence of infection during hospitalization Outcome: Progressing Problem: Respiratory Goal: Achieves optimal ventilation and oxygenation Outcome: Progressing Goal: Ability to maintain a clear airway will improve Outcome: Progressing Problem: Cardiovascular Goal: Cardiovascular status will improve Outcome: Progressing Problem: Skin/Tissue Integrity Goal: Skin integrity remains intact Outcome: Progressing Goal: Oral mucous membranes remain intact Description: Outcome: Progressing Problem: Musculoskeletal Goal: Return ADL status to a safe level of function Outcome: Progressing Goal: Ability to perform activities at highest level will improve Outcome: Progressing Problem: Genitourinary Goal: Urinary catheter remains patent Outcome: Progressing Problem: Neurosensory Goal: Achieves stable or improved neurological status Outcome: Progressing Goal: Achieves maximal functionality and self care Outcome: Progressing Problem: Discharge Planning Goal: Understanding discharge needs will improve Outcome: Progressing Problem: Isolation Lack of Knowledge Goal: Knowledge of risk factors and measures for prevention of condition will improve Outcome: Progressing Problem: Isolation Physical Regulation Goal: Isolation- Spread of further infection will be prevented Outcome: Progressing Goal: Isolation- Complications related to the disease process, condition, or treatment will be avoided or minimized. Outcome: Progressing Problem: Fall Risk Goal: Ability to state ways to decrease the risk of falls will improve Outcome: Progressing Goal: Will remain free from falls Outcome: Progressing Goal: Will remain free from injury from falls Outcome: Progressing Problem: Skin Integrity Impairment Risk Goal: Mobility will improve Outcome: Progressing Goal: Understanding of ways to prevent future skin breakdown will improve Outcome: Progressing Goal: Nutritional status will improve Outcome: Progressing Goal: Risk for impaired skin integrity will decrease Outcome: Progressing Problem: Lack of Knowledge Goal: Ability to develop a pain control plan will improve Outcome: Progressing Problem: Medication Goal: Satisfaction with pain management medication regimen will improve Outcome: Progressing Summary: VSS. BP soft side, + orthos. BG and diet orders adjusted d/t hyperglycemia. Remains 4L NC.Audiology seen. Pain control w/ PRN's. Pt updated on plan of care. Iso maintained. WCTM. * Initial Assessments - Anaid Miranda, RN - 07/27/2024 3:56 PM CDT CM Initial Assessment Interview Note Information Obtained From: Patient (07/27/241550) In person assessment conducted in patient room. Admission Source: Home Impression: 58 yo male with mycoplasma avium and cavitary lung disease, hx Stenotrophamonas PNA 05/2024, HFpEF, COPD on chronic O2. Plan Includes: Evaluation by medical team and in coordination with PT/OT and any other appropriate disciplines. Anticipate patient will discharge to home when medically stable. CM to follow for d/c planning and referrals as needed. Primary Source of Transportation: Does the patient need discharge transport arranged?: No Has discharge transport been arranged?: No (07/27/24 1551) Health Insurance Coverage: [facility] Medicare Solutions and [place] Medicaid Prescription Coverage: Yes Pharmacy: [facility] #[id number] - [place] - [address] AT [address] [place] [id number] [facility] [place] - [facility] [place] - [address] [id number] Primary Care Provider: Kirt Lindsay DO Prior to Admission: Functional Status: Minimal assist with ADLs Primary Caregiver: Self Support System: Other (Comment) (Room mate Billy Kaiser provides support [phone]) Home Care Services: No Outpatient Services: No Durable Medical Equipment: Walker (wheeled), Oxygen Oxygen Detail: 4L/NC Provider is [facility] Patient Living Arrangements: Friends Type of Residence: Private residence Steps in home?: Yes, Outside of home Number of steps outside: 5 steps Medication management: Independent (07/27/24 155) Potential discharge needs include: Home Health: None (07/27/24 155) OP Services: No Dialysis: No Behavioral Health Services: Behavioral Health Services: No (07/27/24 155) Anticipated Level of Care: Anticipated discharge level of care: Private residence Pt/Family agrees with Anticipated Level of Care: Yes (07/27/24 155) Patient expects to be Discharged to: Private residence, (07/24/24 0100) Additional Information: Address, , Insurance and PCP verified to face sheet. Patient's Identified Problem/Goal Problem: Ensure acute medical needs are met and that patient has a safe discharge plan. Goal: Secure a discharge plan that patient/family are agreeable with and ensure patient has continuum of care. Case management will follow for discharge planning and send referrals as needed. Goals include: To assure continuity of care, To maximize coping skills, To assure patient is in a safe environment and To assure access to community resources. Plan includes: 1. Collaboration with Patient, Provider, Direct Care Nurse, Health Analytics Consultant, and other members of theHealth Care Team to assure needed interventions completed. 2. Return patient to optimal level of self-care post discharge. 3. [employer] will follow for Discharge Planning - interventions as needed 4. Anticipated level of care at discharge 5. Planned Discharge Disposition Anaid D. Upshur, RN * Plan of Care - Aaron Reyes RN - 07/26/2024 9:39 PM CDT Problem: Lack of Knowledge Goal: Ability to describe self care measures that may prevent or decrease complications related to Type 1 Diabetes will improve Outcome: Progressing Goal: Ability to describe self care measures that may prevent or decrease complications related to Type 2 Diabetes will improve Outcome: Progressing Problem: Infection Goal: Absence of infection during hospitalization Outcome: Progressing Flowsheets (Taken 07/26/20242008) Absence of infection during hospitalization: Assess and monitor for signs and symptoms of infection Monitor lab/diagnostic results Identify and instruct in appropriate isolation precautions for identified infection/condition Problem: Discharge Planning Goal: Understanding discharge needs will improve Outcome: Progressing Problem: Isolation Lack of Knowledge Goal: Knowledge of risk factors and measures for prevention of condition will improve Outcome: Progressing Problem: Isolation Physical Regulation Goal: Isolation- Spread of further infection will be prevented Outcome: Progressing Goal: Isolation- Complications related to the disease process, condition, or treatment will be avoided or minimized. Outcome: Progressing Problem: Fall Risk Goal: Ability to state ways to decrease the risk of falls will improve Outcome: Progressing Flowsheets (Taken 07/26/20242008) Ability to state ways to decrease the risk of falls will improve: Teach fall prevention measures Teach information regarding appropriate enviornmental changes Goal: Will remain free from falls Outcome: Progressing Flowsheets (Taken 07/26/20242008) Will remain free from falls: Assess risk factors for falls Implement fall prevention measures Collaborate with other disciplines Goal: Will remain free from injury from falls Outcome: Progressing Flowsheets (Taken 07/26/20242008) Will remain free from injury from falls: Provide safe environment for conduction of activities of daily living in hospital environment Problem: Lack of Knowledge Goal: Ability to develop a pain control plan will improve Outcome: Progressing Flowsheets (Taken 07/26/20242008) Ability to develop a pain control plan will improve: Explain causes of pain and how long pain can be expected to last Teach information regarding pain management Educate pain scale for assessing level of pain Teach notification to healthcare provider of episodes of pain Problem: Medication Goal: Satisfaction with pain management medication regimen will improve Outcome: Progressing Flowsheets (Taken 07/26/20242008) Satisfaction with pain management medication regimen will improve: Assess satisfaction with pain management regimen Problem: Sensory Goal: Ability to identify factors that increase pain levels will improve while working to decrease the patient's pain levels Outcome: Progressing Flowsheets (Taken 07/26/20242008) Ability to identify factors that increase pain levels will improve while working to decrease patients pain levels: Assess pain status Explore factors that precipitate, worsens, or relieves pain or discomfort Assess effects of pain control measures Problem: Coping Goal: Ability to cope will improve Outcome: Progressing Problem: Health Behavior Goal: Identification of resources available to assist in meeting health care needs will improve Outcome: Progressing Problem: Skin Integrity Impairment Risk Goal: Mobility will improve Outcome: Progressing Goal: Understanding of ways to prevent future skin breakdown will improve Outcome: Progressing Goal: Nutritional status will improve Outcome: Progressing Goal: Risk for impaired skin integrity will decrease Outcome: Progressing Problem: Respiratory Goal: Achieves optimal ventilation and oxygenation Outcome: Progressing Flowsheets (Taken 07/26/20242008) Achieves optimal ventilation and oxygenation: Assess for changes in respiratory status Position to facilitate oxygenation and minimize respiratory effort Oxygen supplementation based on oxygen saturation or arterial blood gases Encourage broncho-pulmonary hygiene including cough, deep breathing, incentive spirometry Assess and instruct to report shortness of breath or any respiratory difficulty Manage oxygen therapy Goal: Ability to maintain a clear airway will improve Outcome: Progressing Flowsheets (Taken 07/26/20242008) Ability to maintain a clear airway will improve: Evaluate breath sounds Problem: Cardiovascular Goal: Cardiovascular status will improve Outcome: Progressing Flowsheets (Taken 07/26/20242008) Cardiovascular status will improve: Monitor for signs and symptoms of chest pain Problem: Skin/Tissue Integrity Goal: Skin integrity remains intact Outcome: Progressing Flowsheets (Taken 07/26/20242008) Skin integrity remains intact: Assess and document skin integrity Goal: Oral mucous membranes remain intact Description: Outcome: Progressing Flowsheets (Taken 07/26/20242008) Oral mucous membranes remain intact: Assess oral mucosa and hygiene practices Problem: Musculoskeletal Goal: Return ADL status to a safe level of function Outcome: Progressing Flowsheets (Taken 07/26/20242008) Return activities of daily living status to a safe level of function: Assess patient's activities of daily living deficits and provide assistive devices as needed Goal: Ability to perform activities at highest level will improve Outcome: Progressing Problem: Genitourinary Goal: Urinary catheter remains patent Outcome: Progressing Goals: Clinical Goals for the Shift: vital signs, medications, labs, comfort and safety, breathing treatment, free from fall and injury Summary: monitored vital signs all throughout the shift. Blood sugar monitored and insulin given asper sliding scale. All due medications given as per MAR. Provided comfort and safety. Remained freefrom fall and injury. Report was given to the [facility] [place]note 2[place] nurse. Transferred the patient to [facility] [place]note 2[place] via stretcher with all his belongings in stable condition for continuity of care. * Plan of Care - Dee Dee Ramírez RN - 07/26/2024 10:25 AM CDT Problem: Lack of Knowledge Goal: Ability to describe self care measures that may prevent or decrease complications related to Type 2 Diabetes will improve Outcome: Progressing Flowsheets (Taken 07/25/2024 1036) Ability to describe self care measures that may prevent or decrease complications related to Type 2Diabetes will improve: Discuss diabetic foot care Teach signs and symptoms of hyperglycemia Teach signs and symptoms of hypoglycemia Teach risks of complications of diabetes Teach blood glucose measurement Discuss diabetes sick day management Problem: Fall Risk Goal: Will remain free from falls Outcome: Progressing Flowsheets (Taken 07/26/2024 1023) Will remain free from falls: Implement fall prevention measures Assess risk factors for falls Collaborate with other disciplines Problem: Health Behavior Goal: Identification of resources available to assist in meeting health care needs will improve Outcome: Progressing Flowsheets (Taken 07/26/2024 1023) Identification of resources available to assist in meeting health care needs will improve: Collaborate with all therapies Problem: Skin Integrity Impairment Risk Goal: Understanding of ways to prevent future skin breakdown will improve Outcome: Progressing Flowsheets (Taken 07/26/2024 1023) Understanding of ways to prevent future skin breakdown will improve: Discuss treatment plan for related conditions Discuss treatments to protect skin integrity Goal: Nutritional status will improve Outcome: Progressing Flowsheets (Taken 07/26/2024 1023) Nutritional status will improve: Assess nutritional status Assist with appropriate dietary choices Encourage nutritional intake Monitor intake and output Encourage fluid intake * Hospital Course - Francis Gordon MD - 07/25/2024 7:54 PM CDT MAC infection: Patient noted to have bilateral R>L cavitary lung consolidation in May 2024. Previous bronch 06/16/24 was positive for mycobacterium avium and Stenotrophomonas. Stenotrophomonas was previously treated with minocycline. Patient was started on ethambutol on azithromycin 07/07/24 by ID prior to admis [facility]. Patient presented this admission with complaints of shortness of breath. CT chest 07/24/24 showed similar appearing cavitary lesions c/f refractory infection. ID was consulted. Patient was started on IV amikacin as well as continued on azithro + ethambutol. Amikacin was adjusted to 700 mg basedon peak levels. EKG 07/27/24 monitoring showed Qtc 517 on amikacin + vori, which patient was taking for mold prophylaxis. Vori was switched to cresemba 07/29/24 given prolonged QT. Baseline audiology exam performed 07/27/24. ID recommended 6 weeks of IV amikacin. PICC line placed 07/29/24 for amikacin access OP. Patient received bedside teaching performed by nurses for PICC flushes. Patient will continue OP follow-up with ID. Patient was discharged on his home baseline 3L O2 requirement. Acute systolic heart failure: TTE 07/24/24 showed new depressed EF of 30% as part of dyspnea work-up. Cards was consulted. Patient was noted to have prior STEMI in Dec 2022 w/ PCI to RCA thought to be possible cause. Cardiology recommended medical management. Due to intermittent low BP coreg was switched to metoprolol. Losartan and aldactone were trialed but stopped due to intermittent low blood pressure and hyperkalemia. Cardiology recommended continuing plavix and xarelto for CAD. Patient was started on jardiance for GDMT (0$ copay) AML: S/p matched sib allo (D0 = 11/09/2009) w/ remission. C/b chronic GVHD eyes and lungs. Patient was continued on GVHD ppx w/ tacro and cellcept. As above, vori prophylaxis was switched to cresemba due to prolonged QT w/ vori + amikacin. History of PE: DVT and PE in 2012. Had IJ DVT 2017. Patient continued on xarelto at discharge. COPD: continue trelegy ellipta & PRN albuterol Diabetes: A1c 6.7%. Jardiance at discharge * Assessment & Plan Note - Caroline Maria PA - 07/25/2024 12:05 PM CDT Associated Problem(s): Hypocalcemia Ca 8.1. Due to hypoalbumin, Ca is wnl with hypoalbuminemia correction. -continue to monitor and treat as indicated * Consults, Subsequent - Bony Ochoa MD - 07/25/2024 11:33 AM CDT Infectious Disease Subsequent Consult Note Infectious Disease Team: Transplant Contact Information: Please see EPIC Treatment Team listing for up-to-date contact information. Subjective Chief complaint: Pulmonary MAC Interval History: - NAEO. AFVSS on 3L NC. - WBC 17.4, Hgb 9.1, Plt 338 - Azithromycin increased to 500mg daily - Received first dose of Amikacin - Audiology attempted to see yesterday but not in room - TTE with EF 30%, no vegetations, poor acoustic windows - No active complaints this morning. Still having some mild chest tightness but much improved. Objective Anti-infectives (From admission, onward) Start Dose/Rate Route Frequency Ordered Stop 07/25/24 09 azithromycin (ZITHROMAX) tablet 500 mg 500 mg oral Daily 07/24/24 1616 07/03/25 0859 07/24/24 1700 amikacin (AMIKIN) 900 mg in sodium chloride 0.9% 36 mL (25 mg/mL) IV syringe 15 mg/kg ?? 59 kg 36 mL/hr over 60 Minutes intravenous Once per day on Saturday07/24/24 1621 07/24/24 0900 ethambutoL (MYAMBUTOL) tablet 1,200 mg 1,200 mg oral Daily 07/23/249 07/03/25 0859 07/24/24 0000 acyclovir (ZOVIRAX) tablet 400 mg 400 mg oral Every 8 hours 07/23/249 07/24/24 0000 voriCONAZOLE (VFEND) tablet 200 mg 200 mg oral 2 times daily 07/23/249 Vitals: 24hr Min/Max: Temp Min: 36.4 ??C (97.6 ??F) Max: 36.8 ??C (98.2 ??F) Pulse Min: 82 Max: 94 BP Min: 122/77 Max: 128/79 Resp Min: 17 Max: 18 SpO2 Min: 97 % Max: 100 % Most Recent : Vitals: 07/25/24 0800 BP: 122/77 Pulse: 94 Resp: 17 Temp: 36.4 ??C (97.6 ??F) SpO2: 97% I/O last 2 completed shifts: In: 910 [P.O.:910] Out: 1600 [Urine:1600] Active LDAs: Peripheral IV 07/24/24 20 G Anterior;Left Brachial (Active) Number of days: 1 Physical Exam: Constitutional: NAD, thin appearing Eyes: EOMI, anicteric. HENT: NCAT. Lungs: Clear to auscultation in all lung leger, unlabored, no wheezes, respiring comfortably on 3LNC Cardiovascular: RRR, normal S1 and S2, no murmurs GI: Soft, non-tender, non-distended, bowel sounds positive Skin: No rashes, lesions or bruises Extremities: Normal without edema or cyanosis Neurologic: AOx4, no gross neurologic deficits Psychiatric: Appropriate affect and mood. Pleasant and conversational. Lab/Radiology/Diagnostic Review: Lab Results Component Value Date MICROBIOLOGY (.) 07/15/2024 Final Report: Growth indicates upper respiratory lalito. MICROBIOLOGY Final Report: No growth 07/14/2024 MICROBIOLOGY Final Report: No growth 07/14/2024 MICROBIOLOGY (.) 06/19/2024 Final Report: Enterococcus species, vancomycin resistant MICROBIOLOGY Final Report: No growth 06/16/2024 MICROBIOLOGY Final Report: No growth 06/16/2024 Radiology results were reviewed. CT Body Outside Consult Result Date: 07/24/2024 1. 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 These findings are not significant changed from CT dated 07/14/2024, but remain worse than CT dated 05/28/2024. 2. Lower lobe mucus plugging with nodularity suspicious for superimposed aspiration pneumonia, which is new from CT dated 05/28/2024. The findings, conclusions and recommendations within thisreport do not replace the initial findings, conclusions and recommendations made at the facility where the study was performed based upon the imaging and clinical condition at that time. Comparison with the prior report and clinical history is necessary. The provided images may or may not representthe [employer] source data set and thus may contain changes that may lower the accuracy of this second-opinion interpretation. Dictated by: Slick Guzman M.D. The radiology attending physician has personally reviewed this study, and had reviewed and/or edited this written report and agrees with it.Electronically signed by: Cameron Lenz M.D. XR Outside Reference Result Date: 07/24/2024 These images are for Reference purposes only and have not been reviewed by [facility] Radiology. There will be no report generated by a [facility] Radiologist. CT Body Outside Consult Result Date: 07/24/2024 1. 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 These findings are not significant changed from CT dated 07/14/2024, but remain worse than CT dated 05/28/2024. 2. Lower lobe mucus plugging with nodularity suspicious for superimposed aspiration pneumonia, which is new from CT dated 05/28/2024. The findings, conclusions and recommendations within thisreport do not replace the initial findings, conclusions and recommendations made at the facility where the study was performed based upon the imaging and clinical condition at that time. Comparison with the prior report and clinical history is necessary. The provided images may or may not representthe [employer] source data set and thus may contain changes that may lower the accuracy of this second-opinion interpretation. Dictated by: Slick Guzman M.D. The radiology attending physician has personally reviewed this study, and had reviewed and/or edited this written report and agrees with it.Electronically signed by: Cameron Lenz M.D. XR Outside Reference Result Date: 07/24/2024 These images are for Reference purposes only and have not been reviewed by [facility] Radiology. There will be no report generated by a [facility] Radiologist. Assessment/Plan Patient is a 58 y.o. male with severe emphysematous COPD requiring oxygen support, intermittent tobacco use, malnutrition, AML s/p alloHSCT (2008) in remission, and recent smear-proven pulmonary MAC infection (dx'd 06/16/2024) on azithromycin and ethambutol, here for acute on chronic respiratory failure with worsening pulmonary disease on CT imaging. ID is consulted for management recommendations. 1) Pulmonary Mycobacterium avium infection - CT chest wo (05/28): stable bilateral upper lobe consolidations and new JASEN consolidation - Bronchoscosopy with BAL (06/16): culture positive for abundant Mycobacterium avium (sensitivities pending) - Established care with Dr. Pinzon on 07/07. Started on Azithromycin + Ethambutol with plan to startamikacin and clofazimine pending follow up. Rifamycin deferred due to voriconazole ddi. - CT-PE (07/21): progressive cavitary mycobacterial disease compared to prior (05/28) imaging Recommendations: - Continue ethambutol 1200mg daily and azithromcyin 500mg daily - Continue amikacin 15 mg/kg on with target peak of 30-35. Check trough/peak level after third dose. Anticipate 4-6 week course. - Please obtain EKG this afternoon/evening. If QTc <500 on higher azithromycin dose, will consider addition of clofazimine. If high could consider switching fungal ppx to isavuconazole. - Pending baseline audiology exam. Will need recheck every two weeks while on amikacin. Thank you for the opportunity to participate in the care of your patient. We will continue to follow. Please contact the Transplant ID fellow as listed on Amion with any questions or concerns. Patient was seen and discussed with Dr. Gonzalez who helped formulate above plan. Today, I am treating the patient for pulmonary mycobacterial avium infection which can cause respiratory failure, sepsis, and in the short-term future in the absence of appropriate treatment, as described in the note. Bony Ochoa MD PhD Infectious Diseases Fellow Cosigned by Ga Gonzalez MD at 07/26/2024 12:28 PM CDT Associated attestation - Ga Gonzalez MD - 07/26/2024 12:28 PM CDT The resident/fellow saw and examined the patient, we discussed their findings, and I am in agreement with the plan based on the discussion with the resident/fellow. I did not personally examine the patient. * Plan of Care - Dee Dee Ramírez RN - 07/25/2024 10:38 AM CDT Problem: Lack of Knowledge Goal: Ability to describe self care measures that may prevent or decrease complications related to Type 1 Diabetes will improve Outcome: Progressing Goal: Ability to describe self care measures that may prevent or decrease complications related to Type 2 Diabetes will improve Outcome: Progressing Flowsheets (Taken 07/25/2024 1036) Ability to describe self care measures that may prevent or decrease complications related to Type 2Diabetes will improve: Discuss diabetic foot care Teach signs and symptoms of hyperglycemia Teach signs and symptoms of hypoglycemia Teach risks of complications of diabetes Teach blood glucose measurement Discuss diabetes sick day management Problem: Infection Goal: Absence of infection during hospitalization Outcome: Progressing Flowsheets (Taken 07/24/2024 1440) Absence of infection during hospitalization: Assess and monitor for signs and symptoms of infection Monitor lab/diagnostic results Instruct and encourage patient and family to use good hand hygiene technique Identify and instruct in appropriate isolation precautions for identified infection/condition Problem: Fall Risk Goal: Ability to state ways to decrease the risk of falls will improve Outcome: Progressing Flowsheets (Taken 07/25/2024 1036) Ability to state ways to decrease the risk of falls will improve: Teach information regarding appropriate enviornmental changes Teach fall prevention measures Goal: Will remain free from falls Outcome: Progressing Flowsheets (Taken 07/25/2024 1036) Will remain free from falls: Implement fall prevention measures Assess risk factors for falls Collaborate with other disciplines Problem: Medication Goal: Satisfaction with pain management medication regimen will improve Outcome: Progressing Flowsheets (Taken 07/25/2024 1036) Satisfaction with pain management medication regimen will improve: Evaluate medication effects Report inadequate pain control to healthcare provider Provide administration of medications prior to painful activities Assess satisfaction with pain management regimen Problem: Sensory Goal: Ability to identify factors that increase pain levels will improve while working to decrease the patient's pain levels Outcome: Progressing Flowsheets (Taken 07/25/2024 1036) Ability to identify factors that increase pain levels will improve while working to decrease patients pain levels: Assess pain status Explore factors that precipitate, worsens, or relieves pain or discomfort Encourage distraction activities Observe non-verbal cues of discomfort, such as restlessness, muscle tension, or altered vital signs Assess effects of pain control measures Explore alternative treatments for pain from the patient's culture Problem: Respiratory Goal: Achieves optimal ventilation and oxygenation Outcome: Progressing Flowsheets (Taken 07/24/2024 1440) Achieves optimal ventilation and oxygenation: Assess for changes in respiratory status Assess for changes in mentation and behavior Position to facilitate oxygenation and minimize respiratory effort Initiate smoking cessation protocol as indicated Manage oxygen therapy Goal: Ability to maintain a clear airway will improve Outcome: Progressing Flowsheets (Taken 07/24/2024 1440) Ability to maintain a clear airway will improve: Implement actions to maintain a patent airway Evaluate breath sounds Problem: Cardiovascular Goal: Cardiovascular status will improve Outcome: Progressing * Plan of Care - Maren Godoy - 07/24/2024 11:26 PM CDT Problem: Lack of Knowledge Goal: Ability to describe self care measures that may prevent or decrease complications related to Type 1 Diabetes will improve Outcome: Progressing Goal: Ability to describe self care measures that may prevent or decrease complications related to Type 2 Diabetes will improve Outcome: Progressing Problem: Infection Goal: Absence of infection during hospitalization Outcome: Progressing Problem: Discharge Planning Goal: Understanding discharge needs will improve Outcome: Progressing Problem: Isolation Lack of Knowledge Goal: Knowledge of risk factors and measures for prevention of condition will improve Outcome: Progressing Problem: Isolation Physical Regulation Goal: Isolation- Spread of further infection will be prevented Outcome: Progressing Goal: Isolation- Complications related to the disease process, condition, or treatment will be avoided or minimized. Outcome: Progressing Problem: Fall Risk Goal: Ability to state ways to decrease the risk of falls will improve Outcome: Progressing Goal: Will remain free from falls Outcome: Progressing Goal: Will remain free from injury from falls Outcome: Progressing Problem: Lack of Knowledge Goal: Ability to develop a pain control plan will improve Outcome: Progressing Problem: Medication Goal: Satisfaction with pain management medication regimen will improve Outcome: Progressing Problem: Sensory Goal: Ability to identify factors that increase pain levels will improve while working to decrease the patient's pain levels Outcome: Progressing Problem: Coping Goal: Ability to cope will improve Outcome: Progressing Problem: Health Behavior Goal: Identification of resources available to assist in meeting health care needs will improve Outcome: Progressing Problem: Skin Integrity Impairment Risk Goal: Mobility will improve Outcome: Progressing Goal: Understanding of ways to prevent future skin breakdown will improve Outcome: Progressing Goal: Nutritional status will improve Outcome: Progressing Goal: Risk for impaired skin integrity will decrease Outcome: Progressing Problem: Respiratory Goal: Achieves optimal ventilation and oxygenation Outcome: Progressing Goal: Ability to maintain a clear airway will improve Outcome: Progressing Problem: Cardiovascular Goal: Cardiovascular status will improve Outcome: Progressing Problem: Skin/Tissue Integrity Goal: Skin integrity remains intact Outcome: Progressing Goal: Oral mucous membranes remain intact Description: Outcome: Progressing Problem: Musculoskeletal Goal: Return ADL status to a safe level of function Outcome: Progressing Goal: Ability to perform activities at highest level will improve Outcome: Progressing Problem: Genitourinary Goal: Urinary catheter remains patent Outcome: Progressing Goals: Clinical Goals for the Shift: Monitor: Perfusion, Medication, Labs, Vitals and Safety Summary: Pt Alert and oriented x4. Denies SOB, chest pain, nausea or vomiting. BG monitored insulingiven per ordered. Vital sign taken on RA. Uses call light appropriately. Call light within reach. * Plan of Care - Dee Dee Ramírez RN - 07/24/2024 2:42 PM CDT Problem: Lack of Knowledge Goal: Ability to describe self care measures that may prevent or decrease complications related to Type 1 Diabetes will improve Outcome: Progressing Flowsheets (Taken 07/24/2024 1440) Ability to describe self care measures that may prevent or decrease complications related to Type 1Diabetes will improve: Teach risks of complications of diabetes Teach blood glucose measurement Teach/demonstrate insulin injections Discuss signs/symptoms/risks of Diabetic Ketoacidosis (DKA) Problem: Infection Goal: Absence of infection during hospitalization Outcome: Progressing Flowsheets (Taken 07/24/2024 1440) Absence of infection during hospitalization: Assess and monitor for signs and symptoms of infection Monitor lab/diagnostic results Instruct and encourage patient and family to use good hand hygiene technique Identify and instruct in appropriate isolation precautions for identified infection/condition Problem: Respiratory Goal: Achieves optimal ventilation and oxygenation Outcome: Progressing Flowsheets (Taken 07/24/2024 1440) Achieves optimal ventilation and oxygenation: Assess for changes in respiratory status Assess for changes in mentation and behavior Position to facilitate oxygenation and minimize respiratory effort Initiate smoking cessation protocol as indicated Manage oxygen therapy Goal: Ability to maintain a clear airway will improve Outcome: Progressing Flowsheets (Taken 07/24/2024 1440) Ability to maintain a clear airway will improve: Implement actions to maintain a patent airway Evaluate breath sounds Problem: Musculoskeletal Goal: Return ADL status to a safe level of function Outcome: Progressing Flowsheets (Taken 07/24/2024 1440) Return activities of daily living status to a safe level of function: Obtain PT/OT consults as needed Assess patient's activities of daily living deficits and provide assistive devices as needed * Initial Assessments - Katherine DomMS tiaraW - 07/24/2024 2:39 PM CDT Social Work Assessment Clinical Dx: No primary diagnosis found. Past Medical History: Date of last inpatient admission: Previous admit date: 07/15/2024 Number of inpatient admissions in past year: 7 Reason for Current Hospitalization (Pt/Caregiver Stated): Pneumonia (07/24/241429) Patient Information: Information Obtained From: Patient Marital Status: Does Pt have Legal Guardian, Surrogate Decision Maker or Healthcare Agent? 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 (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/241429) Legal History: Legal History Legal Information : No legal issues (07/24/241429) Support Systems and Spirituality: Support Systems and Spirituality Support System: Children, Life partner Life Partner Name/Contact Information: (Partner) Lissy Job ([phone]) Children Name/Contact Information: (Son) Bri Robert Bowman (#UNKNOWN) Participation from Patient's Support System: Patient lives with Lissy who provides support as needed Do you have a Jain Preference or Affiliation?: Yes Preference/Affiliation : Christaian Are there any Jain Practices that are important to maintain while admitted?: No Do you have Cultural Factors that are important to you?: No Description of Childhood: [place] History of physical abuse? : No History of physically abusing others? : No History of sexual abuse?: No History of sexually abusing others? : No History of Mental/Emotional Abuse? 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 Hope and Strength during Difficult Times: Good food Does Pt have access to Employee Assistance Program: No Patient Barriers : Dependent on others for completion of ADL's, Poor physical health Current Stressors: Chronic illness (07/24/24 1430) SDOH Transportation Needs: No Transportation Needs (07/24/2024) PRAPARE - Transportation Lack of Transportation (Medical): No Lack of Transportation (Non-Medical): No Financial Resource Strain: Low Risk (07/24/2024) Overall Financial Resource Strain (CARDIA) Difficulty of Paying Living Expenses: Not very hard Housing Stability: Low Risk (07/24/2024) Housing Stability Vital Sign Unable to Pay for Housing in the Last Year: No Number of Times Moved in the Last Year: 0 Homeless in the Last Year: No Social Connections: Socially Isolated (07/24/2024) Social Connection and Isolation Panel [NHANES] Frequency of Communication with Friends and Family: Twice a week Frequency of Social Gatherings with Friends and Family: Once a week Attends Jain Services: Never Active Member of Clubs or Organizations: No Attends Club or Organization Meetings: Never Marital Status: Food Insecurity: No Food Insecurity (07/24/2024) Hunger Vital Sign Worried About Running Out of Food in the Last Year: Never true Ran Out of Food in the Last Year: Never true Tobacco Use: High Risk (07/19/2024) Patient History Smoking Tobacco Use: Some Days Smokeless Tobacco Use: Never Passive Exposure: Not on file Alcohol Use: Not At Risk (07/15/2024) AUDIT-C Frequency of Alcohol Consumption: Monthly or less Average Number of Drinks: 1 or 2 Frequency of Binge Drinking: Never PHQ Screening Over the last 2 weeks, how often have you been bothered by any of the following problems? Little Interest or Pleasure in Doing Things: Not at all Feeling Down, Depressed, or Hopeless: Not at all PHQ-2 Total Score (If total score is 3 or more points, staff should administer the PHQ-9): 0 Over the past 2 weeks, how often have you been bothered by any of the following problems? Little Interest or Pleasure in Doing Things: Not at all Feeling Down, Depressed, or Hopeless: Not at all PHQ-2 Total Score (If total score is 3 or more points, staff should administer the PHQ-9): 0 If you checked off any problems, how difficult have these problems made it for you to do your work,take care of things at home, or get along with other people?: Not difficult at all Current/Former Smokers - Passive Exposure Questions Responses Current/Former Smoker - passive exposure (e.g., household member smoking)? Yes E-Cigarette/Vaping Questions Responses E-cigarette/Vaping Use Never User Substance Abuse, Mental Health, and Trauma History: Chemical Dependency, Mental Health & Trauma History Chemical Dependency: No detail provided of history Mental Health: No detail provided of history (07/24/24 1430) Risk to Self and Others: Risk to Self and Others Violence risk to self in past 6 months? : No Self Harm/Suicidal Ideation Plan: No Previous Self Harm/Suicidal Attempts: No Violence risk to others in past 6 months? : No Any lifetime risk of violence to others? : No Current Plans to Harm Another: No Previous Plans to Harm Another: No (07/24/24 1430) Impressions and Recommendations: Social Work was consulted due to high readmission risk (38%), readmission within 30 days, number ofinpatient admissions (#7) within the year. Pt (Bri Jones) (1965) is a male, who was admitted to [facility] on 07/23/2024 for Acute on chronic respiratory failure (CMS/HCC) (HCC) [J96.20]. Current address is [address] [facility] [address]. Current phone number is [phone] (home) . SW informed patient of chart review and asked patient to confirm information. SW met with patient at bedside. Patient amenable to assessment and presented as A&Ox4 with appropriate affect. Patient had appropriate eye contact and was good historian. Pt identified his partner Lissy as a strong support systems and acting senior physician at home. Pt reported Lissy will assist with his transportation needs. Pt did not identify any concerns with housing, financial strain, or food insecurity. Pt has the insurance [facility] Medicare. Social work confirmed with patient that he does have a DPOA. Patient verified their DPOA/surrogate decision-maker (Partner) Lissy Kaiser ([phone]) as the point of contact if needed. No further Social Work interventions identified. Social Work will sign off. Previous Admissions: 07/14/2024 - Acute pancreatitis without infection or necrosis, unspecified pancreatitis type 06/15/2024 - Right sided lung infiltrate 03/27/2024 - Multifocal pneumonia 02/20/2024 - Dysphagia Readmission Risk: Predictive Model Details 38% (High Risk) Factor Value Calculated 07/24/2024 12:02 23% Number of active inpatient medication orders 52 Risk of Unplanned Readmission Model 13% Number of hospitalizations in last year 4 11% Number of ED visits in last six months 3 7% Diagnosis of cancer present 6% ECG/EKG order present in last 6 months 6% Latest calcium low (8.1 mg/dL) 5% Charlson Comorbidity Index 7 5% Encounter of ten days or longer in last year present 5% Diagnosis of electrolyte disorder present 4% Imaging order present in last 6 months 4% Latest hemoglobin low (8.5 g/dL) 3% Age 58 3% Active anticoagulant inpatient medication order present 3% Active corticosteroid inpatient medication order present 1% Future appointment scheduled 1% Active ulcer inpatient medication order present 0% Current length of stay 0.585 days Social Work to work with [facility] for discharge planning and social concerns as needed. Dom Murphy LMSW Please see [facility] Treatment Team for contact information. * Plan of Care - Paty Cummings RRT - 07/24/2024 2:03 PM CDT Respiratory Medication Plan Situation: Patient is currently scheduled to receive Trelegy , Daily. Home Medications: Current Outpatient Medications Medication Instructions acyclovir (ZOVIRAX) 400 mg, oral, Every 8 hours albuterol HFA (PROVENTIL HFA,VENTOLIN HFA,PROAIR HFA) 90 mcg/actuation inhaler 2 puffs, inhalation,Every 6 hours PRN albuterol 2.5 mg, nebulization, Every 6 hours PRN ascorbic acid (VITAMIN C) 500 mg, oral, Daily atorvastatin (LIPITOR) 40 mg, oral, Daily azithromycin (ZITHROMAX) 250 mg, oral, Daily cholecalciferol (VITAMIN D-3) 2,000 Units, oral, Every morning cyanocobalamin (VITAMIN B-12) 1,000 mcg, oral, Every morning ethambutoL (MYAMBUTOL) 1,200 mg, oral, Daily flash glucose scanning reader (RIWIyle Evaristo 2 [facility]) [facility] [place] test blood glucose continuously flash glucose sensor (BenchlingStyle Evaristo 2 Sensor) kit Change sensor every 14 days msjztekbrot-oaetogrrx-duzasigy (Trelegy Ellipta) 200-62.5-25 mcg inhaler 1 puff, inhalation, Daily gabapentin (NEURONTIN) 300 mg capsule TAKE ONE CAPSULE BY MOUTH FOUR TIMES DAILY @ [id number]-[id number] guaiFENesin ER (MUCINEX) 600 mg, oral, 2 times daily magnesium oxide (MAG-OX) 250 mg, oral, Every other day montelukast (SINGULAIR) 10 mg, oral, Nightly mycophenolate mofetil (CELLCEPT) 1,000 mg, oral, 2 times daily nicotine (NICODERM CQ) 21 mg 1 patch, transdermal, Daily omega-3 fatty acids (LOVAZA) 1 g, oral, Daily ondansetron ODT (ZOFRAN-ODT) 4 mg, oral, Every 8 hours PRN oxyCODONE (ROXICODONE) 5 mg, oral, Every 4 hours PRN oxygen 2 L/min, each nostril, Nightly, Nightly and PRN pantoprazole DR (PROTONIX) 40 mg, oral, 2 times daily predniSONE (DELTASONE) 20 mg, oral, 2 times daily sodium chloride 3 % nebulizer solution 4 mL, nebulization, 2 times daily, Use albuterol in nebulizer first, then saline, then Aerobika sucralfate (CARAFATE) 1 g, oral, 4 times daily (with meals and nightly) tacrolimus 0.5 mg immediate-release capsule TAKE ONE CAPSULE BY MOUTH EVERY OTHER DAY voriCONAZOLE (VFEND) 200 mg, oral, 2 times daily Xarelto 20 mg tablet TAKE ONE TABLET BY MOUTH DAILY AT 9 AM zinc gluconate 50 mg, oral, Daily Bronchodilator Assessment Score: Pulmonary Status Surgical Status Chest X-Ray Resp Pattern Mental Status Cough Breath Sounds Level of Activity O2 Requirement Oxygen therapy: SpO2 100 % O2 Therapy Supplemental oxygen Pulse Rate: Pre Treatment Post Treatment Respiratory Rate: Pre Treatment Post Treatment Respiratory Assessment: Resp Effort Depth & Rhythm Assessment BRONCHODILATOR EVALUATION /ASSESSMENT SCORE 0-6 Q4 PRN Therapy* or Home Regimen, Intermittent wheezing, or SOB 7-13 QID Therapy Wheezing or periodic SOB 14-19 Q6 Therapy Increased wheezing and/or SOB 20-26 Q4 Therapy Increased wheezing and/or SOB, Difficulty sleeping >26 Contact MD/SAJI Severe Wheezing, SOB, Difficulty sleeping Note: Score gives a general indication of pulmonary risk. Clinical judgement may yield a different recommended frequency. Toleration: Patient tolerated treatment well. Plan: I have spoken with the patient, and we have agreed to stay with the current home regimen. The medication has been put to bedside as the patient is able to administer their own MDIs. RN has been notified to remind and chart. * Assessment & Plan Note - Caroline Maria PA - 07/24/2024 1:13 PM CDT Associated Problem(s): Llamas catheter in place (Resolved 07/25/2024) Noted llamas catheter in place. Unsure of reason of llamas placement overnight. Without urinary retention or incomplete emptying. No llamas cath placement order found. -remove llamas today with voiding trial * Assessment & Plan Note - Caroline Maria PA - 07/24/2024 1:02 PM CDT Associated Problem(s): Protein-calorie malnutrition, severe (CMS/HCC) (HCC) BMI 18.14, appears malnourished. RD to evaluate with recommendations * Assessment & Plan Note - Wilbert Strickland MD - 07/24/2024 12:18 AM CDT Associated Problem(s): History of esophagitis - Continue protonix. Has a chronic globus sensation and mech soft diet at baseline per pt. 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 Pain was slowly recurring in the last few days. Lipase was WNL at LFTs wnl at OSH and wnl on repeat here. Improving. - Pain control. - Tolerating mechanical soft diet * Assessment & Plan Note - Wilbert Strickland MD - 07/24/2024 12:14 AM CDT Associated Problem(s): CHF (congestive heart failure) (CMS/HCC) (HCC) TTE 03/2024 with LVEF 50-55%. Pro BNP at OSH >30k. Last adm here 1012. Appears euvolemic. S/p Lasix at OSH and [place] [address] - repeat TTE 07/24: LVEF 30%, moderate [...] start low dose lisinopril and further titrations * Assessment & Plan Note - Wilbert Strickland MD - 07/24/2024 12:13 AM CDT Associated Problem(s): History of pulmonary embolism - DVT and PE in 2013. Had IJ DVT 2018 - Continues on Xarelto * Assessment & Plan Note - Wilbert Strickland MD - 07/24/2024 12:13 AM CDT Associated Problem(s): Peripheral neuropathy - Continue gabapentin * Assessment & Plan Note - Wilbert Strickland MD - 07/24/2024 12:13 AM CDT Associated Problem(s): COPD with exacerbation (CMS/HCC) (HCC) - Hx COPD on trelegy and albuterol at home. Intermittent ongoing smoking - Reports exacerbation starting ~07/19. Now s/p 5d steroids - No wheezing at present - Continue nebs as PRN. Hold further steroids for now * Assessment & Plan Note - Wilbert Strickland MD - 07/24/2024 12:12 AM CDT Associated Problem(s): Type 2 diabetes mellitus (HCC) reports only a sliding scale at home. 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 Presenting for 4d of worsening SOB. Presented to [facility] ED 07/19 for SOB and treated for COPD exac with pred course. Presented to [facility] on 07/21 for worsening SOB. CXR and CTPE withcf worsening mulifocal PNA prompting transfer. Was needing [...] will place transfer order to BMT floor * Significant Event - Brittny Escalera MD - 07/22/2024 12:27 AM CDT Outside Hospital Transfer Note Division of Hospital Medicine Call Participants Referring hospital or service: [facility] ED Referring provider: ED PA Clinical Info Reason for Transfer: Specialist Consult and Overall Complexity History: PMH smear positive,cavitary pulmonary M avium disease documented by bronchoscopy with BAL and BW cultures on 06/16/24, in setting of 02 requiring (at night) severe COPD, current smoking (down to a few puffs a week ), GERD w/HH and erosive esophagitis, possible aspiration, HSCT for AML (2008) in remission, Hx of GVHD, insulin requiring DM. Presented with a few days of progressive dyspnea after recent admit at [place] for pancreatitis,?PNA. Placed on bipap in ED initially for work of breathing. Able to de-escalate back to home 3L NC. Afebrile, BP stable, tachy 120->110s. Labs notable for WBC 14k, HGB 9.2, lactate 3.1, BNP>30k, trop 0.06, elevated d-dimer, covid neg. CTA showed multifocal PNA worse since May, no PE. Given solumedrol, mag, nebs, azithro, ctx, vanc, lasix. Hospitalist there recommended transfer due to complexity and given he follows with [facility]. Does patient consent to transfer: yes Is the patient established with any [facility] providers?: yes; ID Dr Pinzon Problem list and anticipated needs upon transfer: 1. PNA, acute on chronic respiratory failure Outcome Primary service: [facility] [place] Urgency: Routine Information reflected above was gathered from referring provider and/or chart review. I have not seen or examined this patient. Brittny Escalera MD Medicine Triage Attending documented in this encounter Plan of Treatment Pending Results Name Type Priority Associated Diagnoses Date /Time Phosphorus Lab Routine 08/01/2024 12: 54 AM CDT Scheduled Orders Name Type Priority Associated Diagnoses Orde r Schedule Phosphorus Lab Routine Once for 1 Occ urrences starting 08/01/2024 until 08/01/2024 Scheduled Referrals Name Type Priority Associated Diagnoses Order Schedule Ambulatory referral to Home Health Outpatient Referral Routine Mycobacterium avium infection (HCC) 1 Occurrences starting 07/30/2024 until 01/25/2025 documented as of this encounter Procedures Procedure Name Priority Date/Time Associated Diagnosis Comments POCT GLUCOSE DEVICE Routine 08/02/2024 8 :02 AM CDT POCT GLUCOSE DEVICE Routine 08/02/2024 5 :49 AM CDT EGFR Routine 08/02/2024 1:26 AM CDT DIFFERENTIAL AUTO Routine 08/02/2024 1:2 6 AM CDT CBC WITH AUTO DIFFERENTIAL Routine 08/02/2024 1:26 AM CDT MAGNESIUM Routine 08/02/2024 1:26 AM CDT COMPREHENSIVE METABOLIC PANEL Routine 08/02/2024 1:26 AM CDT POCT GLUCOSE DEVICE Routine 08/01/2024 8 :36 PM CDT POCT GLUCOSE DEVICE Routine 08/01/2024 5 :01 PM CDT POCT GLUCOSE DEVICE Routine 08/01/2024 1 :22 PM CDT PEP THERAPY Routine 08/01/2024 8:00 AM CDT POCT GLUCOSE DEVICE Routine 08/01/2024 7 :12 AM CDT EGFR Routine 08/01/2024 12:54 AM CDT DIFFERENTIAL AUTO Routine 08/01/2024 12: 54 AM CDT CBC WITH AUTO DIFFERENTIAL Routine 08/01/2024 12:54 AM CDT PHOSPHORUS Routine 08/01/2024 12:54 AM CDT MAGNESIUM Routine 08/01/2024 12:54 AM CDT COMPREHENSIVE METABOLIC PANEL Routine 08/01/2024 12:54 AM CDT POCT GLUCOSE DEVICE Routine 07/31/2024 9 :24 PM CDT POCT GLUCOSE DEVICE Routine 07/31/2024 6 :09 PM CDT XR CHEST 1 VIEW ED Urgent/IP Urgent 07/31/2024 4:32 PM CDT TROPONIN I HIGH-SENSITIVITY STAT 07/31/2024 4:05 PM CDT POCT GLUCOSE DEVICE Routine 07/31/2024 1 2:27 PM CDT POCT GLUCOSE DEVICE Routine 07/31/2024 7 :23 AM CDT EGFR Routine 07/31/2024 12:56 AM CDT DIFFERENTIAL AUTO Routine 07/31/2024 12: 56 AM CDT CBC WITH AUTO DIFFERENTIAL Routine 07/31/2024 12:56 AM CDT MAGNESIUM Routine 07/31/2024 12:56 AM CDT COMPREHENSIVE METABOLIC PANEL Routine 07/31/2024 12:56 AM CDT POCT GLUCOSE DEVICE Routine 07/30/2024 9 :05 PM CDT PEP THERAPY Routine 07/30/2024 6:00 PM CDT POCT GLUCOSE DEVICE Routine 07/30/2024 5 :52 PM CDT PEP THERAPY Routine 07/30/2024 1:00 PM CDT POCT GLUCOSE DEVICE Routine 07/30/2024 1 1:56 AM CDT MISCELLANEOUS TEST SENDOUT CHEMISTRY Routine 07/30/2024 10:25 AM CDT TACROLIMUS LEVEL, RANDOM Routine 07/30/2024 8:02 AM CDT PEP THERAPY Routine 07/30/2024 8:00 AM CDT POCT GLUCOSE DEVICE Routine 07/30/2024 7 :14 AM CDT EGFR Routine 07/29/2024 11:57 PM CDT DIFFERENTIAL AUTO Routine 07/29/2024 11: 57 PM CDT CBC WITH AUTO DIFFERENTIAL Routine 07/29/2024 11:57 PM CDT MAGNESIUM Routine 07/29/2024 11:57 PM CDT COMPREHENSIVE METABOLIC PANEL Routine 07/29/2024 11:57 PM CDT POCT GLUCOSE DEVICE Routine 07/29/2024 8 :37 PM CDT PEP THERAPY Routine 07/29/2024 6:00 PM CDT POCT GLUCOSE DEVICE Routine 07/29/2024 5 :05 PM CDT POCT GLUCOSE DEVICE Routine 07/29/2024 1 1:40 AM CDT AMIKACIN LEVEL PEAK Timed 07/29/2024 1 0:46 AM CDT ECG 12-LEAD Routine 07/29/2024 9:55 AM CDT AMIKACIN LEVEL TROUGH Timed 07/29/2024 9:08 AM CDT LACTATE, WHOLE BLOOD STAT 07/29/2024 9:08 AM CDT POCT GLUCOSE DEVICE Routine 07/29/2024 7 :29 AM CDT EGFR Routine 07/28/2024 10:21 PM CDT DIFFERENTIAL AUTO Routine 07/28/2024 10: 21 PM CDT CBC WITH AUTO DIFFERENTIAL Routine 07/28/2024 10:21 PM CDT MAGNESIUM Routine 07/28/2024 10:21 PM CDT COMPREHENSIVE METABOLIC PANEL Routine 07/28/2024 10:21 PM CDT POCT GLUCOSE DEVICE Routine 07/28/2024 5 :00 PM CDT PEP THERAPY Routine 07/28/2024 1:00 PM CDT POCT GLUCOSE DEVICE Routine 07/28/2024 1 1:46 AM CDT MISCELLANEOUS TEST SENDOUT CHEMISTRY Routine 07/28/2024 10:45 AM CDT PEP THERAPY Routine 07/28/2024 8:00 AM CDT TACROLIMUS LEVEL, RANDOM Routine 07/28/2024 7:40 AM CDT POCT GLUCOSE DEVICE Routine 07/28/2024 7 :31 AM CDT EGFR Routine 07/27/2024 8:28 PM CDT DIFFERENTIAL AUTO Routine 07/27/2024 8:2 8 PM CDT POCT GLUCOSE DEVICE Routine 07/27/2024 8 :28 PM CDT CBC WITH AUTO DIFFERENTIAL Routine 07/27/2024 8:28 PM CDT MAGNESIUM Routine 07/27/2024 8:28 PM CDT COMPREHENSIVE METABOLIC PANEL Routine 07/27/2024 8:28 PM CDT PEP THERAPY Routine 07/27/2024 6:00 PM CDT POCT GLUCOSE DEVICE Routine 07/27/2024 5 :08 PM CDT POCT GLUCOSE DEVICE Routine 07/27/2024 3 :22 PM CDT PEP THERAPY Routine 07/27/2024 1:00 PM CDT POCT GLUCOSE DEVICE Routine 07/27/2024 1 2:46 PM CDT POCT GLUCOSE DEVICE Routine 07/27/2024 1 0:44 AM CDT POCT GLUCOSE DEVICE Routine 07/27/2024 9 :15 AM CDT PEP THERAPY Routine 07/27/2024 8:00 AM CDT POCT GLUCOSE DEVICE Routine 07/27/2024 7 :22 AM CDT EGFR Routine 07/26/2024 9:42 PM CDT DIFFERENTIAL AUTO Routine 07/26/2024 9:4 2 PM CDT CBC WITH AUTO DIFFERENTIAL Routine 07/26/2024 9:42 PM CDT MAGNESIUM Routine 07/26/2024 9:42 PM CDT COMPREHENSIVE METABOLIC PANEL Routine 07/26/2024 9:42 PM CDT POCT GLUCOSE DEVICE Routine 07/26/2024 7 :58 PM CDT PEP THERAPY Routine 07/26/2024 6:00 PM CDT POCT GLUCOSE DEVICE Routine 07/26/2024 5 :26 PM CDT ECG 12-LEAD Routine 07/26/2024 4:20 PM CDT PEP THERAPY Routine 07/26/2024 1:00 PM CDT POCT GLUCOSE DEVICE Routine 07/26/2024 1 1:38 AM CDT PEP THERAPY Routine 07/26/2024 8:00 AM CDT POCT GLUCOSE DEVICE Routine 07/26/2024 7 :38 AM CDT EGFR Routine 07/25/2024 9:39 PM CDT DIFFERENTIAL AUTO Routine 07/25/2024 9:3 9 PM CDT CBC WITH AUTO DIFFERENTIAL Routine 07/25/2024 9:39 PM CDT MAGNESIUM Routine 07/25/2024 9:39 PM CDT COMPREHENSIVE METABOLIC PANEL Routine 07/25/2024 9:39 PM CDT POCT GLUCOSE DEVICE Routine 07/25/2024 9 :26 PM CDT POCT GLUCOSE DEVICE Routine 07/25/2024 5 :29 PM CDT POCT GLUCOSE DEVICE Routine 07/25/2024 1 2:09 PM CDT POCT GLUCOSE DEVICE Routine 07/25/2024 7 :59 AM CDT POCT GLUCOSE DEVICE Routine 07/25/2024 2 :04 AM CDT EGFR Routine 07/24/2024 9:39 PM CDT DIFFERENTIAL AUTO Routine 07/24/2024 9:3 9 PM CDT CBC WITH AUTO DIFFERENTIAL Routine 07/24/2024 9:39 PM CDT MAGNESIUM Routine 07/24/2024 9:39 PM CDT COMPREHENSIVE METABOLIC PANEL Routine 07/24/2024 9:39 PM CDT POCT GLUCOSE DEVICE Routine 07/24/2024 8 :47 PM CDT POCT GLUCOSE DEVICE Routine 07/24/2024 5 :10 PM CDT TRANSTHORACIC ECHO (TTE) COMPLETE W DOPPLER/CF W CONTRAST Routine 07/24/2024 5:01 PM CDT POCT GLUCOSE DEVICE Routine 07/24/2024 1 2:23 PM CDT POCT GLUCOSE DEVICE Routine 07/24/2024 8 :33 AM CDT POCT GLUCOSE DEVICE Routine 07/24/2024 6 :34 AM CDT RESPIRATORY PATHOGEN PANEL STAT 07/24/2024 2:35 AM CDT POCT GLUCOSE DEVICE Routine 07/24/2024 1 :[address] BODY OUTSIDE CONSULT Routine 07/24/2024 1:53 AM CDT XR TRANSFER OF OUTSIDE FILMS Routine 07/24/2024 1:50 AM CDT PEP THERAPY Routine 07/24/2024 12:33 AM CDT EGFR STAT 07/24/2024 12:28 AM CDT DIFFERENTIAL AUTO STAT 07/24/2024 12: 28 AM CDT PRO B-TYPE NATRIURETIC PEPTIDE STAT 07/24/2024 12:28 AM CDT CBC WITH AUTO DIFFERENTIAL STAT 07/24/2024 12:28 AM CDT TACROLIMUS LEVEL, RANDOM STAT 07/24/2024 12:28 AM CDT APTT STAT 07/24/2024 12:28 AM CDT PROTIME-INR STAT 07/24/2024 12:28 AM CDT TYPE AND SCREEN STAT 07/24/2024 12:28 AM CDT LIPASE STAT 07/24/2024 12:28 AM CDT BLOOD GAS, VENOUS STAT 07/24/2024 12: 28 AM CDT HEPATIC FUNCTION PANEL STAT 07/24/2024 12:28 AM CDT BASIC METABOLIC PANEL STAT 07/24/2024 12:28 AM CDT SPUTUM INDUCTION Routine 07/23/2024 11:3 2 PM CDT POCT GLUCOSE DEVICE Routine 07/23/2024 1 0:33 PM CDT documented in this encounter Results * (ABNORMAL) POCT glucose (08/02/2024 8:02 AM CDT) Glucose, POC 200(H) 70 - 199 mg/dL Blood 08/02/2024 8:02 AM CDT 08/02/2024 8:02 AM CDT us Cruz Pederson MD LAB POCT ORDERABLES - DE VICE Final Result [facility] Department of check[address] [place] [address] * (ABNORMAL) POCT glucose (08/02/2024 5:49 AM CDT) Glucose, POC 266(H) 70 - 199 mg/dL Blood 08/02/2024 5:49 AM CDT 08/02/2024 5:49 AM CDT us Cruz Pederson MD LAB POCT ORDERABLES - DE VICE Final Result [facility] Department of [address] [place] [address] * eGFR (08/02/2024 1:26 AM CDT) eGFR >90 >=60 mL/min/1. 73 [...] interpretive data was last reviewed 2021. Blood 08/02/2024 1:26 AM CDT 08/02/2024 1:43 AM CDT Caroline BERNAL LAB BLOOD ORDERABLES nal Result [facility] Department of Laboratories [place], [place] [id number] * (ABNORMAL) Differential, auto (08/02/2024 1:26 AM CDT) Neutrophil abs 6.6(H) 1.5 - 6.5 K/cumm Imm gran abs 0.1 0.0 - 0.1 K/cumm [facility] Lymphocyte abs 2.1 0.8 - 3.3 K/cumm [facility] Monocyte abs 1.9(H) 0.2 - 0.8 K/cumm [facility] Eosinophil abs 0.3 0.0 - 0.5 K/cumm [facility] Basophil abs 0.0 0.0 - 0.1 K/cumm [facility] Neutrophil pct 60.0 % [facility] Comment: Interpretive Data Percent cell count reference ranges are not reported, since discordance with absolute values may lead to misinterpretation of CBC data. Current Interpretive Data was last revised on 2018. Imm gran pct 0.5 % [facility] Comment: Interpretive Data Percent cell count reference ranges are not reported, since discordance with absolute values may lead to misinterpretation of CBC data. Current Interpretive Data was last revised on 2018. Lymphocyte pct 19.4 % [facility] Comment: Interpretive Data Percent cell count reference ranges are not reported, since discordance with absolute values may lead to misinterpretation of CBC data. Current Interpretive Data was last revised on 2018. Monocyte pct 17.3 % [facility] Comment: Interpretive Data Percent cell count reference ranges are not reported, since discordance with absolute values may lead to misinterpretation of CBC data. Current Interpretive Data was last revised on 2018. Eosinophil pct 2.6 % [facility] Comment: Interpretive Data Percent cell count reference ranges are not reported, since discordance with absolute values may lead to misinterpretation of CBC data. Current Interpretive Data was last revised on 2018. Basophil pct 0.2 % [facility] Comment: Interpretive Data Percent cell count reference ranges are not reported, since discordance with absolute values may lead to misinterpretation of CBC data. Current Interpretive Data was last revised on 2018. Blood 08/02/2024 1:26 AM CDT 08/02/2024 1:43 AM CDT us Caroline BERNAL LAB BLOOD ORDERABLES Fi nal Result [facility] Department [place] [address] * (ABNORMAL) Comprehensive metabolic panel (08/02/2024 1:26 AM CDT) Sodium 133(L) 135 - 145 mmol/L Potassium, pl 4.6 3.3 - 4.9 mmol/L [facility] Chloride 95(L) 97 - 110 mmol/L [facility] CO2 34(H) 22 - 32 mmol/L [facility] Anion gap 4 2 - 15 mmol/L [facility] BUN 24 6 - 25 mg/dL [facility] Creatinine 0.82 0.80 - 1.30 mg/dL [facility] Glucose 234(H) 70 - 199 mg/dL [facility] Comment: Interpretive Data Fasting glucose [...] interpretive data was last revised 2022. Calcium 8.8 8.5 - 10.3 mg/dL [facility] Bilirubin, total <0.2 0.1 - 1.2 mg/dL [facility] Comment:Repeated and Verifie d Protein, pl 6.5 6.5 - 8.5 g/dL [facility] Albumin 3.0(L) 3.5 - 5.0 g/dL [facility] Alk phos 178(H) 40 - 130 Units/L [facility] ALT 28 7 - 55 Units/L [facility] AST 43 10 - 50 Units/L [facility] Blood 08/02/2024 1:26 AM CDT 08/02/2024 1:43 AM CDT us Caroline BERNAL LAB BLOOD ORDERABLES Fi nal Result [facility] Department [place] [address] * (ABNORMAL) CBC with auto differential (08/02/2024 1:26 AM CDT) WBC 11.0(H) 3.8 - 9.9 K/cumm Hgb 9.3(L) 13.0 - 17.5 g/dL [facility] Hct 28.3(L) 38.9 - 50.3 % [facility] Plt 308 150 - 400 K/cumm [facility] MPV 10.7 9.1 - 12.3 fL [facility] RBC 2.76(L) 4.30 - 5.80 M/cumm [facility] MCV 102.5(H) 81.3 - 96.4 fL [facility] MCH 33.7(H) 27.1 - 33.3 pg [facility] MCHC 32.9 32.3 - 35.7 g/dL [facility] RDW CV 20.6(H) 11.1 - 14.9 % [facility] RDW SD 74.6(H) 35.7 - 48.1 fL [facility] NRBC abs 0.04(H) 0.00 - 0.01 K/cumm [facility] Blood 08/02/2024 1:26 AM CDT 08/02/2024 1:43 AM CDT Caroline BERNAL LAB BLOOD ORDERABLES Fi nal Result Performing Organization Address [facility] Co de Phone Number [facility] of [address] [place] [address] * Magnesium (08/02/2024 1:26 AM CDT) Magnesium 1.6 1.4 - 2.5 mg/dL Blood 08/02/2024 1:26 AM CDT 08/02/2024 1:43 AM CDT Caroline BERNAL LAB BLOOD ORDERABLES Fi nal Result [facility] of [address] [place] [address] * POCT glucose (08/01/2024 8:36 PM CDT) Glucose, POC 70 70 - 199 mg/dL Blood 08/01/2024 8:36 PM CDT 08/01/2024 8:36 PM CDT us Cruz Pederson MD LAB POCT ORDERABLES - DE VICE Final Result Performing Organization Address City/[facility] Co de Phone Number [facility] [place] [address] * (ABNORMAL) POCT glucose (08/01/2024 5:01 PM CDT) Glucose, POC 236(H) 70 - 199 mg/dL Blood 08/01/2024 5:01 PM CDT 08/01/2024 5:01 PM CDT Cruz Pederson MD LAB POCT ORDERABLES - DE VICE Final Result Performing Organization Address [facility] Co de Phone Number [facility] [address] [place] [address] * POCT glucose (08/01/2024 1:22 PM CDT) Glucose, POC 144 70 - 199 mg/dL Comment:Glu2: RN/MD Notified Glucose comment 1 Glu2: RN/MD Notified [facility] Blood 08/01/2024 1:22 PM CDT 08/01/2024 1:22 PM CDT Curz Pederson MD LAB POCT ORDERABLES - DE VICE Final Result Performing Organization Address [facility] [place] [address] * (ABNORMAL) POCT glucose (08/01/2024 7:12 AM CDT) [facility] Glucose, POC 204(H) 70 - 199 mg/dL Comment:Glu2: RN/MD Notified Glucose comment 1 Glu2: RN/MD Notified [facility] Blood 08/01/2024 7:12 AM CDT 08/01/2024 7:12 AM CDT Cruz Pederson MD LAB POCT ORDERABLES - DE VICE Final Result Performing Organization Address [facility] Phone Number [facility] [place] [address] * Phosphorus (08/01/2024 12:54 AM CDT) [facility] Phosphorus, pl 3.8 2.3 - 4.5 mg/dL Blood 08/01/2024 12:5 4 AM CDT 08/01/2024 1:45 AM CDT Cruz Pederson MD LAB BLOOD ORDERABLES Fin al Result Performing Organization Address [facility] Phone Number [facility] [address] [place] [address] * eGFR (08/01/2024 12:54 AM CDT) [facility] eGFR >90 >=60 mL/min/1. 73 m2 Comment: [...] interpretive data was last reviewed 2021. Blood 08/01/2024 12:5 4 AM CDT 08/01/2024 1:45 AM CDT us Caroline BERNAL LAB BLOOD ORDERABLES Fi nal Result [facility] Department [place] [address] * (ABNORMAL) Differential, auto (08/01/2024 12:54 AM CDT) Pathologist [facility] Neutrophil abs 5.5 1.5 - 6.5 K/cumm Imm gran abs 0.1 0.0 - 0.1 K/cumm [facility] Lymphocyte abs 2.8 0.8 - 3.3 K/cumm [facility] Monocyte abs 1.9(H) 0.2 - 0.8 K/cumm [facility] Eosinophil abs 0.3 0.0 - 0.5 K/cumm [facility] Basophil abs 0.0 0.0 - 0.1 K/cumm [facility] Neutrophil pct 51.4 % [facility] Comment: Interpretive Data Percent cell count reference ranges are not reported, since discordance with absolute values may lead to misinterpretation of CBC data. Current Interpretive Data was last revised on 2018. Imm gran pct 0.8 % [facility] Comment: Interpretive Data Percent cell count reference ranges are not reported, since discordance with absolute values may lead to misinterpretation of CBC data. Current Interpretive Data was last revised on 2018. Lymphocyte pct 26.5 % [facility] Comment: Interpretive Data Percent cell count reference ranges are not reported, since discordance with absolute values may lead to misinterpretation of CBC data. Current Interpretive Data was last revised on 2018. Monocyte pct 18.3 % [facility] Comment: Interpretive Data Percent cell count reference ranges are not reported, since discordance with absolute values may lead to misinterpretation of CBC data. Current Interpretive Data was last revised on 2018. Eosinophil pct 2.8 % [facility] Comment: Interpretive Data Percent cell count reference ranges are not reported, since discordance with absolute values may lead to misinterpretation of CBC data. Current Interpretive Data was last revised on 2018. Basophil pct 0.2 % [facility] Comment: Interpretive Data Percent cell count reference ranges are not reported, since discordance with absolute values may lead to misinterpretation of CBC data. Current Interpretive Data was last revised on 2018. Blood 08/01/2024 12:5 4 AM CDT 08/01/2024 1:45 AM CDT us Caroline BERNAL LAB BLOOD ORDERABLES nal Result [facility] Department [place] [address] * (ABNORMAL) Comprehensive metabolic panel (08/01/2024 12:54 AM CDT) Sodium 134(L) 135 - 145 mmol/L Potassium, pl 5.4(H) 3.3 - 4.9 mmol/L [facility] Chloride 95(L) 97 - 110 mmol/L [facility] CO2 34(H) 22 - 32 mmol/L [facility] Anion gap 5 2 - 15 mmol/L [facility] BUN 25 6 - 25 mg/dL [facility] Creatinine 0.92 0.80 - 1.30 mg/dL [facility] Glucose 166 70 - 199 mg/dL [facility] Comment: Interpretive Data Fasting glucose [...] interpretive data was last revised 2022. Calcium 8.8 8.5 - 10.3 mg/dL [facility] Bilirubin, total 0.2 0.1 - 1.2 mg/dL [facility] Protein, pl 6.4(L) 6.5 - 8.5 g/dL [facility] Albumin 3.2(L) 3.5 - 5.0 g/dL [facility] Alk phos 138(H) 40 - 130 Units/L [facility] ALT 28 7 - 55 Units/L [facility] AST 36 10 - 50 Units/L [facility] Blood 08/01/2024 12:5 4 AM CDT 08/01/2024 1:45 AM CDT us Caroline BERNAL LAB BLOOD ORDERABLES Fi nal Result [facility] Department [place] [address] * (ABNORMAL) CBC with auto differential (08/01/2024 12:54 AM CDT) WBC 10.6(H) 3.8 - 9.9 K/cumm Hgb 9.1(L) 13.0 - 17.5 g/dL [facility] Hct 28.5(L) 38.9 - 50.3 % [facility] Plt 319 150 - 400 K/cumm [facility] MPV 11.0 9.1 - 12.3 fL [facility] RBC 2.75(L) 4.30 - 5.80 M/cumm [facility] MCV 103.6(H) 81.3 - 96.4 fL [facility] MCH 33.1 27.1 - 33.3 pg [facility] MCHC 31.9(L) 32.3 - 35.7 g/dL [facility] RDW CV 21.0(H) 11.1 - 14.9 % [facility] RDW SD 78.4(H) 35.7 - 48.1 fL [facility] NRBC abs 0.04(H) 0.00 - 0.01 K/cumm [facility] Blood 08/01/2024 12:5 4 AM CDT 08/01/2024 1:45 AM CDT Caroline BERNAL LAB BLOOD ORDERABLES Fi nal Result [facility] of [address] [place] [address] * Magnesium (08/01/2024 12:54 AM CDT) Magnesium 1.8 1.4 - 2.5 mg/dL Blood 08/01/2024 12:5 4 AM CDT 08/01/2024 1:45 AM CDT Caroline BERNAL LAB BLOOD ORDERABLES Fi nal Result Performing Organization Address City/[facility]/ZIP Co de Phone Number [facility] Department of [address] [place] [address] * POCT glucose (07/31/2024 9:24 PM CDT) Glucose, POC 171 70 - 199 mg/dL Blood 07/31/2024 9:24 PM CDT 07/31/2024 9:24 PM CDT Cruz Pederson MD LAB POCT ORDERABLES - DE VICE Final Result Performing Organization Address City/[facility]/ZIP Co de Phone Number [facility] [place] [address] * (ABNORMAL) POCT glucose (07/31/2024 6:09 PM CDT) Glucose, POC 222(H) 70 - 199 mg/dL Comment:Glu2: RN/MD Notified Glucose comment 1 Glu2: RN/MD Notified [facility] Blood 07/31/2024 6:09 PM CDT 07/31/2024 6:09 PM CDT us Cruz Pederson MD LAB POCT ORDERABLES - DE VICE Final Result [facility] Department [place] [address] * XR Chest 1 View (07/31/2024 4:32 PM CDT) Anatomical Region Laterality Modality Body, Chest N/A Computed Radiogr aphy 07/31/2024 5:18 PM CDT Impressions 07/31/2024 5:18 PM CDT The current study is compared with the prior radiograph dated 07/19/2024. Unchanged hyperinflated lungs. ??There is relatively unchanged appearance of right upper lobe consolidation and cavitation consistent with previously noted atypical mycobacterial infection, better seen on CT dated 07/21/2024. ??Unchanged mild bibasilar atelectasis. ??No pleural effusion or pneumothorax. ??Cardiomediastinal silhouette is stable. Dictated by: Josué Jones M.D. The radiology attending physician has personally reviewed this study, and had reviewed and/or edited this written report and agrees with it. Electronically signed by: Derrell Ochoa M.D. Narrative 07/31/2024 5:18 PM CDT EXAMINATION: 1 view chest radiograph Procedure Note Derrell Ochoa MD - 07/31/2024 EXAMINATION: 1 view chest radiograph IMPRESSION: The current study is compared with the prior radiograph dated 07/19/2024. Unchanged hyperinflated lungs. There is relatively unchanged appearance of right upper lobe consolidation and cavitation consistent with previously noted atypical mycobacterial infection, better seen on CT dated 07/21/2024. Unchanged mild bibasilar atelectasis. No pleural effusion or pneumothorax. Cardiomediastinal silhouette is stable. Dictated by: Josué Jones M.D. The radiology attending physician has personally reviewed this study, and had reviewed and/or edited this written report and agrees with it. Electronically signed by: Derrell Ochoa M.D. us Francis Gordon MD IMG XR PROCEDURES Final Resul t * Troponin I high-sensitivity (07/31/2024 4:05 PM CDT) Pathologist [facility] [place] Trop I hs 11 <=35 ng/L Comment: Interpretive Data For further hscTnI resources including the diagnostic algorithm and an aid in interpretation, copy and paste this link: [email or web address] Current Interpretive Data last revised 2020. Blood 07/31/2024 4:05 PM CDT 07/31/2024 4:24 PM CDT us Francis Gordon MD LAB BLOOD ORDERABLES Final Re sult Performing Organization Address City/[facility]/ZIP Co de Phone Number [facility] Department of [address] [place] [address] * POCT glucose (07/31/2024 12:27 PM CDT) Glucose, POC 105 70 - 199 mg/dL Comment:Glu2: RN/MD Notified Glucose comment 1 Glu2: RN/MD Notified [facility] Blood 07/31/2024 12:2 7 PM CDT 07/31/2024 12:27 PM CDT Cruz Pederson MD LAB POCT ORDERABLES - DE VICE Final Result Performing Organization Address City/[facility]/ZIP Co de Phone Number [facility] of [address] [place] [address] * (ABNORMAL) POCT glucose (07/31/2024 7:23 AM CDT) Glucose, POC 356(H) 70 - 199 mg/dL Comment:Glu2: RN/MD Notified Glucose comment 1 Glu2: RN/MD Notified [facility] Blood 07/31/2024 7:23 AM CDT 07/31/2024 7:23 AM CDT us Cruz Pederson MD LAB POCT ORDERABLES - DE VICE Final Result [facility] Department [place] [address] * eGFR (07/31/2024 12:56 AM CDT) eGFR >90 >=60 mL/min/1. 73 [...] interpretive data was last reviewed 2021. Blood 07/31/2024 12:5 6 AM CDT 07/31/2024 1:55 AM CDT us Caroline BERNAL LAB BLOOD ORDERABLES Fi nal Result [facility] Department [place] [address] * (ABNORMAL) Differential, auto (07/31/2024 12:56 AM CDT) Neutrophil abs 5.6 1.5 - 6.5 K/cumm Imm gran abs 0.1 0.0 - 0.1 K/cumm [facility] Lymphocyte abs 2.7 0.8 - 3.3 K/cumm [facility] Monocyte abs 1.7(H) 0.2 - 0.8 K/cumm [facility] Eosinophil abs 0.3 0.0 - 0.5 K/cumm [facility] Basophil abs 0.0 0.0 - 0.1 K/cumm [facility] Neutrophil pct 54.1 % [facility] Comment: Interpretive Data Percent cell count reference ranges are not reported, since discordance with absolute values may lead to misinterpretation of CBC data. Current Interpretive Data was last revised on 2018. Imm gran pct 0.6 % [facility] Comment: Interpretive Data Percent cell count reference ranges are not reported, since discordance with absolute values may lead to misinterpretation of CBC data. Current Interpretive Data was last revised on 2018. Lymphocyte pct 25.9 % [facility] Comment: Interpretive Data Percent cell count reference ranges are not reported, since discordance with absolute values may lead to misinterpretation of CBC data. Current Interpretive Data was last revised on 2018. Monocyte pct 16.7 % [facility] Comment: Interpretive Data Percent cell count reference ranges are not reported, since discordance with absolute values may lead to misinterpretation of CBC data. Current Interpretive Data was last revised on 2018. Eosinophil pct 2.5 % [facility] Comment: Interpretive Data Percent cell count reference ranges are not reported, since discordance with absolute values may lead to misinterpretation of CBC data. Current Interpretive Data was last revised on 2018. Basophil pct 0.2 % [facility] Comment: Interpretive Data Percent cell count reference ranges are not reported, since discordance with absolute values may lead to misinterpretation of CBC data. Current Interpretive Data was last revised on 2018. Blood 07/31/2024 12:5 6 AM CDT 07/31/2024 1:55 AM CDT Caroline BERNAL LAB BLOOD ORDERABLES Fi nal Result [facility] Department [place] [address] * (ABNORMAL) Comprehensive metabolic panel (07/31/2024 12:56 AM CDT) Sodium 134(L) 135 - 145 mmol/L Potassium, pl 5.1(H) 3.3 - 4.9 mmol/L [facility] Chloride 92(L) 97 - 110 mmol/L [facility] CO2 35(H) 22 - 32 mmol/L [facility] Anion gap 7 2 - 15 mmol/L [facility] BUN 23 6 - 25 mg/dL [facility] Creatinine 0.86 0.80 - 1.30 mg/dL [facility] Glucose 146 70 - 199 mg/dL [facility] Comment: Interpretive Data Fasting glucose [...] interpretive data was last revised 2022. Calcium 9.0 8.5 - 10.3 mg/dL [facility] Bilirubin, total 0.2 0.1 - 1.2 mg/dL [facility] Protein, pl 6.4(L) 6.5 - 8.5 g/dL [facility] Albumin 3.3(L) 3.5 - 5.0 g/dL [facility] Alk phos 116 40 - 130 Units/L [facility] ALT 24 7 - 55 Units/L [facility] AST 35 10 - 50 Units/L [facility] Blood 07/31/2024 12:5 6 AM CDT 07/31/2024 1:55 AM CDT Caroline BERNAL LAB BLOOD ORDERABLES Fi nal Result [facility] Department [place] [address] * (ABNORMAL) CBC with auto differential (07/31/2024 12:56 AM CDT) WBC 10.4(H) 3.8 - 9.9 K/cumm Hgb 8.9(L) 13.0 - 17.5 g/dL [facility] Hct 27.0(L) 38.9 - 50.3 % [facility] Plt 304 150 - 400 K/cumm [facility] MPV 11.1 9.1 - 12.3 fL [facility] RBC 2.61(L) 4.30 - 5.80 M/cumm [facility] MCV 103.4(H) 81.3 - 96.4 fL [facility] MCH 34.1(H) 27.1 - 33.3 pg [facility] MCHC 33.0 32.3 - 35.7 g/dL [facility] RDW CV 20.4(H) 11.1 - 14.9 % [facility] CENTER RDW SD 77.3(H) 35.7 - 48.1 fL [facility] NRBC abs 0.05(H) 0.00 - 0.01 K/cumm [facility] Blood 07/31/2024 12:5 6 AM CDT 07/31/2024 1:55 AM CDT Caroline BERNAL LAB BLOOD ORDERABLES Fi nal Result Performing Organization Address City/[facility]/ZIP Co de Phone Number [facility] check[address] [place] [address] * Magnesium (07/31/2024 12:56 AM CDT) Magnesium 1.7 1.4 - 2.5 mg/dL Blood 07/31/2024 12:5 6 AM CDT 07/31/2024 1:55 AM CDT Caroline BERNAL LAB BLOOD ORDERABLES Fi nal Result Performing Organization Address [facility] Co de Phone Number [facility] check[address] [place] [address] * (ABNORMAL) POCT glucose (07/30/2024 9:05 PM CDT) Glucose, POC 230(H) 70 - 199 mg/dL Blood 07/30/2024 9:05 PM CDT 07/30/2024 9:05 PM CDT Cruz Pederson MD LAB POCT ORDERABLES - DE VICE Final Result Performing Organization Address [facility] Co de Phone Number [facility] [address] [place] [address] * (ABNORMAL) POCT glucose (07/30/2024 5:52 PM CDT) Glucose, POC 211(H) 70 - 199 mg/dL Blood 07/30/2024 5:52 PM CDT 07/30/2024 5:52 PM CDT Cruz Pederson MD LAB POCT ORDERABLES - DE VICE Final Result Performing Organization Address City/[facility]/ZIP Co de Phone Number [facility] [address] [place] [address] * POCT glucose (07/30/2024 11:56 AM CDT) Glucose, POC 164 70 - 199 mg/dL Blood 07/30/2024 11:5 6 AM CDT 07/30/2024 11:56 AM CDT Cruz Pederson MD LAB POCT ORDERABLES - DE VICE Final Result Performing Organization Address [facility] Phone Number [facility] [place] [address] * Miscellaneous Test Sendout Chemistry (07/30/2024 10:25 AM CDT) Test name Ethambutol Peak Result 1 Specimen Type: Blood Result: See scanned result in Medical Record. [facility] Blood 07/30/2024 10:2 5 AM CDT 07/30/2024 4:45 PM CDT Narrative [facility] - 08/02/2024 2:05 PM CDT 1.7 mls serum frozen Cruz Pederson MD LAB BLOOD ORDERABLES Fin al Result Performing Organization Address [facility] Phone Number [facility] Department [place] [address] * Tacrolimus level random (07/30/2024 8:02 AM CDT) Pathologist [facility] [place] Tacrolimus random 1.2 ng/mL Comment: Interpretive Data Testing performed by liquid chromatography-tandem mass spectrometry. ??Therapeutic concentrations vary depending on type of transplanted organ and time elapsed since transplant. ??Typical trough concentrations range from 5-15 ng/mL. ??This test was developed and its performance characteristics determined by the [facility] consistent with CLIA requirements. ??This test has not been cleared or approved by the [place] Food and Drug administration. ??Current interpretive data last reviewed 2020. Blood 07/30/2024 8:02 AM CDT 07/30/2024 9:15 AM CDT us Caroline BERNAL LAB BLOOD ORDERABLES Fi nal Result Performing Organization Address [facility]/ZIP Co de Phone Number [facility] Department [place] [address] * (ABNORMAL) POCT glucose (07/30/2024 7:14 AM CDT) Glucose, POC 300(H) 70 - 199 mg/dL Blood 07/30/2024 7:14 AM CDT 07/30/2024 7:14 AM CDT us Cruz Pederson MD LAB POCT ORDERABLES - DE VICE Final Result Performing Organization Address [facility] Phone Number ZULEMA [facility] Department [place] [address] * eGFR (07/29/2024 11:57 PM CDT) eGFR >90 >=60 mL/min/1. 73 m2 [...] interpretive data was last reviewed 2021. Blood 07/29/2024 11:5 7 PM CDT 07/30/2024 12:15 AM CDT us Caroline BERNAL LAB BLOOD ORDERABLES Fi nal Result [facility] Department [place] [address] * (ABNORMAL) Differential, auto (07/29/2024 11:57 PM CDT) Neutrophil abs 7.1(H) 1.5 - 6.5 K/cumm Imm gran abs 0.1 0.0 - 0.1 K/cumm [facility] Lymphocyte abs 2.9 0.8 - 3.3 K/cumm [facility] Monocyte abs 1.9(H) 0.2 - 0.8 K/cumm [facility] Eosinophil abs 0.3 0.0 - 0.5 K/cumm [facility] Basophil abs 0.0 0.0 - 0.1 K/cumm [facility] Neutrophil pct 57.6 % [facility] Comment: Interpretive Data Percent cell count reference ranges are not reported, since discordance with absolute values may lead to misinterpretation of CBC data. Current Interpretive Data was last revised on 2018. Imm gran pct 0.7 % [facility] Comment: Interpretive Data Percent cell count reference ranges are not reported, since discordance with absolute values may lead to misinterpretation of CBC data. Current Interpretive Data was last revised on 2018. Lymphocyte pct 23.5 % [facility] Comment: Interpretive Data Percent cell count reference ranges are not reported, since discordance with absolute values may lead to misinterpretation of CBC data. Current Interpretive Data was last revised on 2018. Monocyte pct 15.7 % [facility] Comment: Interpretive Data Percent cell count reference ranges are not reported, since discordance with absolute values may lead to misinterpretation of CBC data. Current Interpretive Data was last revised on 2018. Eosinophil pct 2.4 % [facility] Comment: Interpretive Data Percent cell count reference ranges are not reported, since discordance with absolute values may lead to misinterpretation of CBC data. Current Interpretive Data was last revised on 2018. Basophil pct 0.1 % [facility] Comment: Interpretive Data Percent cell count reference ranges are not reported, since discordance with absolute values may lead to misinterpretation of CBC data. Current Interpretive Data was last revised on 2018. Blood 07/29/2024 11:5 7 PM CDT 07/30/2024 12:15 AM CDT Caroline BERNAL LAB BLOOD ORDERABLES Fi nal Result [facility] Department [place] [address] * (ABNORMAL) Comprehensive metabolic panel (07/29/2024 11:57 PM CDT) Sodium 135 135 - 145 mmol/L Potassium, pl 5.3(H) 3.3 - 4.9 mmol/L [facility] Chloride 93(L) 97 - 110 mmol/L [facility] CO2 36(H) 22 - 32 mmol/L [facility] Anion gap 6 2 - 15 mmol/L [facility] BUN 23 6 - 25 mg/dL [facility] Creatinine 0.78(L) 0.80 - 1.30 mg/dL [facility] Glucose 233(H) 70 - 199 mg/dL [facility] Comment: Interpretive Data Fasting glucose [...] interpretive data was last revised 2022. Calcium 8.6 8.5 - 10.3 mg/dL [facility] Bilirubin, total 0.2 0.1 - 1.2 mg/dL [facility] Protein, pl 6.0(L) 6.5 - 8.5 g/dL [facility] Albumin 3.0(L) 3.5 - 5.0 g/dL [facility] Alk phos 108 40 - 130 Units/L [facility] ALT 23 7 - 55 Units/L [facility] AST 34 10 - 50 Units/L [facility] Blood 07/29/2024 11:5 7 PM CDT 07/30/2024 12:15 AM CDT us Caroline BERNAL LAB BLOOD ORDERABLES nal Result [facility] Department [place] [address] * (ABNORMAL) CBC with auto differential (07/29/2024 11:57 PM CDT) WBC 12.3(H) 3.8 - 9.9 K/cumm Hgb 8.7(L) 13.0 - 17.5 g/dL [facility] Hct 26.7(L) 38.9 - 50.3 % [facility] Plt 283 150 - 400 K/cumm [facility] MPV 11.2 9.1 - 12.3 fL [facility] RBC 2.63(L) 4.30 - 5.80 M/cumm [facility] MCV 101.5(H) 81.3 - 96.4 fL [facility] MCH 33.1 27.1 - 33.3 pg [facility] MCHC 32.6 32.3 - 35.7 g/dL [facility] RDW CV 20.7(H) 11.1 - 14.9 % [facility] RDW SD 76.9(H) 35.7 - 48.1 fL [facility] NRBC abs 0.08(H) 0.00 - 0.01 K/cumm [facility] Blood 07/29/2024 11:5 7 PM CDT 07/30/2024 12:15 AM CDT Caroline BERNAL LAB BLOOD ORDERABLES Fi nal Result [facility] [address] [place] [address] * Magnesium (07/29/2024 11:57 PM CDT) Magnesium 1.4 1.4 - 2.5 mg/dL Blood 07/29/2024 11:5 7 PM CDT 07/30/2024 12:15 AM CDT Caroline BERNAL LAB BLOOD ORDERABLES Fi nal Result Performing Organization Address City/[facility]/ZIP Co de Phone Number [facility] [address] [place] [address] * POCT glucose (07/29/2024 8:37 PM CDT) Glucose, POC 180 70 - 199 mg/dL Blood 07/29/2024 8:37 PM CDT 07/29/2024 8:37 PM CDT Cruz Pederson MD LAB POCT ORDERABLES - DE VICE Final Result Performing Organization Address City/[facility]/ZIP Co de Phone Number [facility] [address] [place] [address] * POCT glucose (07/29/2024 5:05 PM CDT) Glucose, POC 198 70 - 199 mg/dL Blood 07/29/2024 5:05 PM CDT 07/29/2024 5:05 PM CDT Cruz Pederson MD LAB POCT ORDERABLES - DE VICE Final Result Performing Organization Address City/[facility]/ZIP Co de Phone Number [facility] Department [place] [address] * POCT glucose (07/29/2024 11:40 AM CDT) Glucose, POC 170 70 - 199 mg/dL Blood 07/29/2024 11:4 0 AM CDT 07/29/2024 11:40 AM CDT Cruz Pederson MD LAB POCT ORDERABLES - DE VICE Final Result Performing Organization Address [facility] Co de Phone Number [facility] Department [place] [address] * (ABNORMAL) Amikacin level peak (07/29/2024 10:46 AM CDT) Amikacin peak 47.2(H) 10.0 - 35.0 mcg/mL Comment: Repeated on dilution. Interpretive Data Therapeutic Range: UTI: 10-15 mcg/mL Systemic illness: 20-25 mcg/mL Sepsis: 25-30 mcg/mL Mycobacterial infections: 25-35 mcg/mL (daily dosing) or 65-80 mcg/mL (three times/week dosing) Current interpretive data was last revised on 21. Testing performed by: [facility], [place]., [address] Blood 07/29/2024 10:4 6 AM CDT 07/29/2024 11:23 AM CDT Narrative [facility] - 07/29/2024 12:56 PM CDT Please obtain 30 minutes after completion of the amikacin infusion Bony Ochoa MD LAB BLOOD ORDERABLES Ed ited Result - Final Performing Organization Address City/[facility]/ZIP Co de Phone Number [facility] Department [place] [address] * ECG 12 lead (07/29/2024 9:55 AM CDT) [facility] Ventricular Rate EKG/Min 83 BPM [facility] Atrial Rate 83 BPM [facility] UT-Interval (MSEC) 128 ms [facility] QRS-Interval (MSEC) 88 ms [facility] QT-Interval (MSEC) 420 ms [facility] QTc 493 ms [facility] P [place] 81 degrees [facility] R [place] 97 degrees [facility] T [place] 248 degrees [facility] Diagnosis Normal sinus rhythm Rightward axis Pulmonary disease pattern ST & T wave abnormality, consider inferolateral ischemia Prolonged QT Abnormal ECG Confirmed by Sunil PIERCE [facility] ([id number]) on 07/30/2024 3:01:05 PM [facility] 07/29/2024 9:55 AM CDT 07/30/2024 3:01 PM CDT us Francis Gordon MD ECG ORDERABLES Final Result [facility] * Lactate, whole blood (07/29/2024 9:08 AM CDT) [facility] Lactate, bld 1.2 0.7 - 2.0 mmol/L Blood 07/29/2024 9:08 AM CDT 07/29/2024 9:29 AM CDT us Francis Gordon MD LAB BLOOD ORDERABLES Final Re sult [facility] Department [place] [address] * Amikacin level trough (07/29/2024 9:08 AM CDT) [facility] Amikacin trough <1.0 0.0 - 7.9 mcg/mL Comment: Repeated and Verified Interpretive Data Therapeutic Range: ?UTI: <4.0 mcg/mL ?Systemic illness: <4.0 mcg/mL ?Sepsis: <8.0 mcg/mL ?Mycobacterial infections: <4.0 mcg/mL(daily dosing)or ?<1.0 mcg/mL(three times/week dosing) Current Interpretive Data was last revised on 2021. Testing performed by: [facility], [place]., [address] Blood 07/29/2024 9:08 AM CDT 07/29/2024 10:39 AM CDT Narrative [facility] - 07/29/2024 12:03 PM CDT Please draw prior to administering amikacin Bony Ochoa MD LAB BLOOD ORDERABLES Fi nal Result Performing Organization Address [facility] Co de Phone Number [facility] Department of check[address] [place] [address] * (ABNORMAL) POCT glucose (07/29/2024 7:29 AM CDT) Glucose, POC 274(H) 70 - 199 mg/dL Blood 07/29/2024 7:29 AM CDT 07/29/2024 7:29 AM CDT Cruz Pederson MD LAB POCT ORDERABLES - DE VICE Final Result Performing Organization Address [facility] [place] [address] * eGFR (07/28/2024 10:21 PM CDT) eGFR >90 >=60 mL/min/1. 73 m2 [...] interpretive data was last reviewed 2021. Blood 07/28/2024 10:2 1 PM CDT 07/28/2024 10:30 PM CDT us Caroline BERNAL LAB BLOOD ORDERABLES Fi nal Result [facility] Department [place] [address] * (ABNORMAL) Differential, auto (07/28/2024 10:21 PM CDT) Neutrophil abs 10.4(H) 1.5 - 6.5 K/cumm Imm gran abs 0.1 0.0 - 0.1 K/cumm [facility] Lymphocyte abs 2.2 0.8 - 3.3 K/cumm [facility] Monocyte abs 1.8(H) 0.2 - 0.8 K/cumm [facility] Eosinophil abs 0.4 0.0 - 0.5 K/cumm [facility] Basophil abs 0.0 0.0 - 0.1 K/cumm [facility] Neutrophil pct 69.7 % [facility] Comment: Interpretive Data Percent cell count reference ranges are not reported, since discordance with absolute values may lead to misinterpretation of CBC data. Current Interpretive Data was last revised on 2018. Imm gran pct 0.6 % [facility] Comment: Interpretive Data Percent cell count reference ranges are not reported, since discordance with absolute values may lead to misinterpretation of CBC data. Current Interpretive Data was last revised on 2018. Lymphocyte pct 14.9 % [facility] Comment: Interpretive Data Percent cell count reference ranges are not reported, since discordance with absolute values may lead to misinterpretation of CBC data. Current Interpretive Data was last revised on 2018. Monocyte pct 11.8 % [facility] Comment: Interpretive Data Percent cell count reference ranges are not reported, since discordance with absolute values may lead to misinterpretation of CBC data. Current Interpretive Data was last revised on 2018. Eosinophil pct 2.9 % [facility] Comment: Interpretive Data Percent cell count reference ranges are not reported, since discordance with absolute values may lead to misinterpretation of CBC data. Current Interpretive Data was last revised on 2018. Basophil pct 0.1 % [facility] Comment: Interpretive Data Percent cell count reference ranges are not reported, since discordance with absolute values may lead to misinterpretation of CBC data. Current Interpretive Data was last revised on 2018. Blood 07/28/2024 10:2 1 PM CDT 07/28/2024 10:29 PM CDT us Caroline BERNAL LAB BLOOD ORDERABLES nal Result [facility] [place] [address] * (ABNORMAL) Comprehensive metabolic panel (07/28/2024 10:21 PM CDT) Sodium 137 135 - 145 mmol/L Potassium, pl 5.4(H) 3.3 - 4.9 mmol/L [facility] Comment:Hemolyzed; Potassium value may be falsely elevated by as much as 0.6-1.0 mmol/L. Suggest redraw and reanalysis. Chloride 91(L) 97 - 110 mmol/L [facility] CO2 41(H) 22 - 32 mmol/L [facility] Anion gap 5 2 - 15 mmol/L [facility] BUN 20 6 - 25 mg/dL [facility] Creatinine 0.70(L) 0.80 - 1.30 mg/dL [facility] Glucose 178 70 - 199 mg/dL [facility] Comment: Interpretive Data Fasting glucose [...] interpretive data was last revised 2022. Calcium 9.1 8.5 - 10.3 mg/dL [facility] Bilirubin, total 0.2 0.1 - 1.2 mg/dL [facility] Protein, pl 6.8 6.5 - 8.5 g/dL [facility] Albumin 3.1(L) 3.5 - 5.0 g/dL [facility] Alk phos 113 40 - 130 Units/L [facility] ALT 28 7 - 55 Units/L [facility] AST 44 10 - 50 Units/L [facility] Comment:Hemolyzed; result ma y be falsely elevated Blood 07/28/2024 10:2 1 PM CDT 07/28/2024 10:30 PM CDT us Caroline BERNAL LAB BLOOD ORDERABLES Fi nal Result [facility] Department of Laboratories [place], [place] [id number] * (ABNORMAL) CBC with auto differential (07/28/2024 10:21 PM CDT) WBC 15.0(H) 3.8 - 9.9 K/cumm Hgb 10.2(L) 13.0 - 17.5 g/dL [facility] Hct 31.7(L) 38.9 - 50.3 % [facility] Plt 307 150 - 400 K/cumm [facility] MPV 10.9 9.1 - 12.3 fL [facility] RBC 3.06(L) 4.30 - 5.80 M/cumm [facility] MCV 103.6(H) 81.3 - 96.4 fL [facility] MCH 33.3 27.1 - 33.3 pg [facility] MCHC 32.2(L) 32.3 - 35.7 g/dL [facility] RDW CV 20.3(H) 11.1 - 14.9 % [facility] RDW SD 76.8(H) 35.7 - 48.1 fL [facility] NRBC abs 0.16(H) 0.00 - 0.01 K/cumm [facility] Blood 07/28/2024 10:2 1 PM CDT 07/28/2024 10:29 PM CDT Caroline BERNAL LAB BLOOD ORDERABLES Fi nal Result Performing Organization Address City/[facility] Co de Phone Number [facility] Department [place] [address] * Magnesium (07/28/2024 10:21 PM CDT) [facility] Magnesium 1.4 1.4 - 2.5 mg/dL Blood 07/28/2024 10:2 1 PM CDT 07/28/2024 10:30 PM CDT Caroline BERNAL LAB BLOOD ORDERABLES Fi nal Result [facility] Department [place] [address] * POCT glucose (07/28/2024 5:00 PM CDT) Glucose, POC 170 70 - 199 mg/dL Blood 07/28/2024 5:00 PM CDT 07/28/2024 5:00 PM CDT Cruz Pederson MD LAB POCT ORDERABLES - DE VICE Final Result Performing Organization Address [facility] Co or Phone Number [facility] [place] [address] * (ABNORMAL) POCT glucose (07/28/2024 11:46 AM CDT) [facility] Glucose, POC 263(H) 70 - 199 mg/dL Comment:Glu2: RN/MD Notified Glucose comment 1 Glu2: RN/MD Notified [facility] Blood 07/28/2024 11:4 6 AM CDT 07/28/2024 11:46 AM CDT Cruz Pederson MD LAB POCT ORDERABLES - DE VICE Final Result Performing Organization Address [facility] [place] [address] * Miscellaneous Test Sendout Chemistry (07/28/2024 10:45 AM CDT) [facility] Test name Ethambutol Peak Result 1 Specimen Type: Serum Result: See scanned result in Medical Record. [facility] Blood 07/28/2024 10:4 5 AM CDT 07/28/2024 11:49 AM CDT Cruz Pederson MD LAB BLOOD ORDERABLES Fin al Result Performing Organization Address City/[facility] Co de Phone Number [facility] [place] [address] * Tacrolimus level random (07/28/2024 7:40 AM CDT) Tacrolimus random 1.6 ng/mL Comment: Interpretive Data Testing performed by liquid chromatography-tandem mass spectrometry. ??Therapeutic concentrations vary depending on type of transplanted organ and time elapsed since transplant. ??Typical trough concentrations range from 5-15 ng/mL. ??This test was developed and its performance characteristics determined by the [facility] consistent with CLIA requirements. ??This test has not been cleared or approved by the [place] Food and Drug administration. ??Current interpretive data last reviewed 2020. Blood 07/28/2024 7:40 AM CDT 07/28/2024 7:58 AM CDT Caroline BERNAL LAB BLOOD ORDERABLES Fi nal Result Performing Organization Address City/[facility]/ZIP Co de Phone Number [facility] Department [place] [address] * (ABNORMAL) POCT glucose (07/28/2024 7:31 AM CDT) Pathologist [facility] Glucose, POC 294(H) 70 - 199 mg/dL Blood 07/28/2024 7:31 AM CDT 07/28/2024 7:31 AM CDT Cruz Pederson MD LAB POCT ORDERABLES - DE VICE Final Result Performing Organization Address City/[facility] Co de Phone Number [facility] Department of check[address] [place] [address] * eGFR (07/27/2024 8:28 PM CDT) eGFR >90 >=60 mL/min/1. 73 m2 [...] interpretive data was last reviewed 2021. Blood 07/27/2024 8:28 PM CDT 07/27/2024 8:48 PM CDT Caroline BERNAL LAB BLOOD ORDERABLES Fi nal Result [facility] Department [place] [address] * (ABNORMAL) Differential, auto (07/27/2024 8:28 PM CDT) Neutrophil abs 9.4(H) 1.5 - 6.5 K/cumm Imm gran abs 0.1 0.0 - 0.1 K/cumm [facility] Lymphocyte abs 1.2 0.8 - 3.3 K/cumm [facility] Monocyte abs 1.0(H) 0.2 - 0.8 K/cumm [facility] Eosinophil abs 0.3 0.0 - 0.5 K/cumm [facility] Basophil abs 0.0 0.0 - 0.1 K/cumm [facility] Neutrophil pct 78.3 % [facility] Comment: Interpretive Data Percent cell count reference ranges are not reported, since discordance with absolute values may lead to misinterpretation of CBC data. Current Interpretive Data was last revised on 2018. Imm gran pct 0.9 % [facility] Comment: Interpretive Data Percent cell count reference ranges are not reported, since discordance with absolute values may lead to misinterpretation of CBC data. Current Interpretive Data was last revised on 2018. Lymphocyte pct 10.0 % [facility] Comment: Interpretive Data Percent cell count reference ranges are not reported, since discordance with absolute values may lead to misinterpretation of CBC data. Current Interpretive Data was last revised on 2018. Monocyte pct 8.3 % [facility] Comment: Interpretive Data Percent cell count reference ranges are not reported, since discordance with absolute values may lead to misinterpretation of CBC data. Current Interpretive Data was last revised on 2018. Eosinophil pct 2.4 % [facility] Comment: Interpretive Data Percent cell count reference ranges are not reported, since discordance with absolute values may lead to misinterpretation of CBC data. Current Interpretive Data was last revised on 2018. Basophil pct 0.1 % [facility] Comment: Interpretive Data Percent cell count reference ranges are not reported, since discordance with absolute values may lead to misinterpretation of CBC data. Current Interpretive Data was last revised on 2018. Blood 07/27/2024 8:28 PM CDT 07/27/2024 8:42 PM CDT us Caroline BERNAL LAB BLOOD ORDERABLES Fi nal Result [facility] Department [place] [address] * POCT glucose (07/27/2024 8:28 PM CDT) Glucose, POC 129 70 - 199 mg/dL Comment:Glu2: RN/ Notified Glucose comment 1 Glu2: RN/ Notified [facility] Blood 07/27/2024 8:28 PM CDT 07/27/2024 8:28 PM CDT us Cruz Pederson MD LAB POCT ORDERABLES - DE VICE Final Result [facility] Department [place] [address] * (ABNORMAL) Comprehensive metabolic panel (07/27/2024 8:28 PM CDT) Sodium 138 135 - 145 mmol/L Potassium, pl 4.7 3.3 - 4.9 mmol/L [facility] Comment:Hemolyzed; Potassium value may be falsely elevated by as much as 0.3-0.5 mmol/L. Suggest redraw and reanalysis. Chloride 90(L) 97 - 110 mmol/L [facility] CO2 42(H) 22 - 32 mmol/L [facility] Anion gap 6 2 - 15 mmol/L [facility] BUN 17 6 - 25 mg/dL [facility] Creatinine 0.72(L) 0.80 - 1.30 mg/dL [facility] Glucose 93 70 - 199 mg/dL [facility] Comment: Interpretive Data Fasting glucose [...] interpretive data was last revised 2022. Calcium 9.3 8.5 - 10.3 mg/dL [facility] Bilirubin, total 0.2 0.1 - 1.2 mg/dL [facility] Protein, pl 7.3 6.5 - 8.5 g/dL [facility] Albumin 3.7 3.5 - 5.0 g/dL [facility] Alk phos 127 40 - 130 Units/L [facility] ALT 30 7 - 55 Units/L [facility] AST 38 10 - 50 Units/L [facility] Comment:Hemolyzed; result ma y be falsely elevated Blood 07/27/2024 8:28 PM CDT 07/27/2024 8:42 PM CDT Caroline BERNAL LAB BLOOD ORDERABLES Fi nal Result Performing Organization Address [facility] de Phone Number [facility] Department [place] [address] * (ABNORMAL) CBC with auto differential (07/27/2024 8:28 PM CDT) Pathologist [facility] WBC 12.0(H) 3.8 - 9.9 K/cumm Hgb 10.2(L) 13.0 - 17.5 g/dL [facility] Hct 31.6(L) 38.9 - 50.3 % [facility] Plt 322 150 - 400 K/cumm [facility] MPV 11.3 9.1 - 12.3 fL [facility] RBC 3.08(L) 4.30 - 5.80 M/cumm [facility] MCV 102.6(H) 81.3 - 96.4 fL [facility] MCH 33.1 27.1 - 33.3 pg [facility] MCHC 32.3 32.3 - 35.7 g/dL [facility] RDW CV 19.4(H) 11.1 - 14.9 % [facility] RDW SD 71.3(H) 35.7 - 48.1 fL [facility] NRBC abs 0.35(H) 0.00 - 0.01 K/cumm [facility] Blood 07/27/2024 8:28 PM CDT 07/27/2024 8:42 PM CDT Caroline BERNAL LAB BLOOD ORDERABLES Fi nal Result Performing Organization Address [facility] Co de Phone Number [facility] Department [place] [address] * Magnesium (07/27/2024 8:28 PM CDT) Pathologist [facility] Magnesium 1.5 1.4 - 2.5 mg/dL Blood 07/27/2024 8:28 PM CDT 07/27/2024 8:42 PM CDT Caroline BERNAL LAB BLOOD ORDERABLES Fi nal Result Performing Organization Address [facility] Phone Number [facility] [place] [address] * POCT glucose (07/27/2024 5:08 PM CDT) Glucose, POC 87 70 - 199 mg/dL Blood 07/27/2024 5:08 PM CDT 07/27/2024 5:08 PM CDT Cruz Pederson MD LAB POCT ORDERABLES - DE VICE Final Result Performing Organization Address [facility] Phone Number [facility] [address] [place] [address] * POCT glucose (07/27/2024 3:22 PM CDT) Glucose, POC 162 70 - 199 mg/dL Blood 07/27/2024 3:22 PM CDT 07/27/2024 3:22 PM CDT Cruz Pederson MD LAB POCT ORDERABLES - DE VICE Final Result Performing Organization Address [facility] Phone Number [facility] [address] [place] [address] * (ABNORMAL) POCT glucose (07/27/2024 12:46 PM CDT) Glucose, POC 342(H) 70 - 199 mg/dL Blood 07/27/2024 12:4 6 PM CDT 07/27/2024 12:46 PM CDT Cruz Pederson MD LAB POCT ORDERABLES - DE VICE Final Result Performing Organization Address [facility] Co de Phone Number [facility] [address] [place] [address] * (ABNORMAL) POCT glucose (07/27/2024 10:44 AM CDT) Glucose, POC 382(H) 70 - 199 mg/dL Blood 07/27/2024 10:4 4 AM CDT 07/27/2024 10:44 AM CDT Lee Morales MD LAB POCT ORDERABLES - DEVICE Fi nal Result Performing Organization Address [facility] [place] [address] * (ABNORMAL) POCT glucose (07/27/2024 9:15 AM CDT) Glucose, POC 430(H) 70 - 199 mg/dL Blood 07/27/2024 9:15 AM CDT 07/27/2024 9:15 AM CDT Lee Morales MD LAB POCT ORDERABLES - DEVICE Fi nal Result Performing Organization Address [facility] Co de Phone Number [facility] [address] [place] [address] * (ABNORMAL) POCT glucose (07/27/2024 7:22 AM CDT) Glucose, POC 389(H) 70 - 199 mg/dL Blood 07/27/2024 7:22 AM CDT 07/27/2024 7:22 AM CDT Lee Morales MD LAB POCT ORDERABLES - DEVICE Fi nal Result Performing Organization Address City/[facility] Co de Phone Number [facility] [place] [address] * eGFR (07/26/2024 9:42 PM CDT) eGFR >90 >=60 mL/min/1. 73 m2 [...] interpretive data was last reviewed 2021. Blood 07/26/2024 9:42 PM CDT 07/26/2024 10:23 PM CDT us Caroline BERNAL LAB BLOOD ORDERABLES Fi nal Result [facility] Department [place] [address] * (ABNORMAL) Differential, auto (07/26/2024 9:42 PM CDT) Neutrophil abs 8.7(H) 1.5 - 6.5 K/cumm Imm gran abs 0.1 0.0 - 0.1 K/cumm [facility] Lymphocyte abs 1.9 0.8 - 3.3 K/cumm [facility] Monocyte abs 1.1(H) 0.2 - 0.8 K/cumm [facility] Eosinophil abs 0.3 0.0 - 0.5 K/cumm [facility] Basophil abs 0.0 0.0 - 0.1 K/cumm [facility] Neutrophil pct 71.4 % [facility] Comment: Interpretive Data Percent cell count reference ranges are not reported, since discordance with absolute values may lead to misinterpretation of CBC data. Current Interpretive Data was last revised on 2018. Imm gran pct 0.9 % [facility] Comment: Interpretive Data Percent cell count reference ranges are not reported, since discordance with absolute values may lead to misinterpretation of CBC data. Current Interpretive Data was last revised on 2018. Lymphocyte pct 15.9 % [facility] Comment: Interpretive Data Percent cell count reference ranges are not reported, since discordance with absolute values may lead to misinterpretation of CBC data. Current Interpretive Data was last revised on 2018. Monocyte pct 9.1 % [facility] Comment: Interpretive Data Percent cell count reference ranges are not reported, since discordance with absolute values may lead to misinterpretation of CBC data. Current Interpretive Data was last revised on 2018. Eosinophil pct 2.6 % [facility] Comment: Interpretive Data Percent cell count reference ranges are not reported, since discordance with absolute values may lead to misinterpretation of CBC data. Current Interpretive Data was last revised on 2018. Basophil pct 0.1 % [facility] Comment: Interpretive Data Percent cell count reference ranges are not reported, since discordance with absolute values may lead to misinterpretation of CBC data. Current Interpretive Data was last revised on 2018. Blood 07/26/2024 9:42 PM CDT 07/26/2024 10:23 PM CDT us Caroline BERNAL LAB BLOOD ORDERABLES Fi nal Result [facility] Department [place] [address] * (ABNORMAL) Comprehensive metabolic panel (07/26/2024 9:42 PM CDT) Sodium 134(L) 135 - 145 mmol/L Potassium, pl 4.2 3.3 - 4.9 mmol/L [facility] Chloride 90(L) 97 - 110 mmol/L [facility] CO2 41(H) 22 - 32 mmol/L [facility] Anion gap 3 2 - 15 mmol/L [facility] BUN 18 6 - 25 mg/dL [facility] Creatinine 0.79(L) 0.80 - 1.30 mg/dL [facility] Glucose 288(H) 70 - 199 mg/dL [facility] Comment: Interpretive Data Fasting glucose [...] interpretive data was last revised 2022. Calcium 7.9(L) 8.5 - 10.3 mg/dL [facility] Bilirubin, total 0.2 0.1 - 1.2 mg/dL [facility] Protein, pl 5.6(L) 6.5 - 8.5 g/dL [facility] Albumin 2.7(L) 3.5 - 5.0 g/dL [facility] Alk phos 106 40 - 130 Units/L [facility] ALT 24 7 - 55 Units/L [facility] AST 25 10 - 50 Units/L [facility] Blood 07/26/2024 9:42 PM CDT 07/26/2024 10:23 PM CDT Caroline BERNAL LAB BLOOD ORDERABLES Fi nal Result [facility] Department [place] [address] * (ABNORMAL) CBC with auto differential (07/26/2024 9:42 PM CDT) WBC 12.1(H) 3.8 - 9.9 K/cumm Hgb 9.2(L) 13.0 - 17.5 g/dL [facility] Hct 28.5(L) 38.9 - 50.3 % [facility] Plt 305 150 - 400 K/cumm [facility] MPV 11.1 9.1 - 12.3 fL [facility] RBC 2.69(L) 4.30 - 5.80 M/cumm [facility] MCV 105.9(H) 81.3 - 96.4 fL [facility] MCH 34.2(H) 27.1 - 33.3 pg [facility] MCHC 32.3 32.3 - 35.7 g/dL [facility] RDW CV 19.7(H) 11.1 - 14.9 % [facility] RDW SD 75.8(H) 35.7 - 48.1 fL [facility] NRBC abs 0.81(H) 0.00 - 0.01 K/cumm [facility] Blood 07/26/2024 9:42 PM CDT 07/26/2024 10:23 PM CDT Caroline BERNAL LAB BLOOD ORDERABLES Fi nal Result [facility] Department [place] [address] * Magnesium (07/26/2024 9:42 PM CDT) Pathologist [facility] Magnesium 1.4 1.4 - 2.5 mg/dL Blood 07/26/2024 9:42 PM CDT 07/26/2024 10:23 PM CDT Caroline BERNAL LAB BLOOD ORDERABLES Fi nal Result Performing Organization Address City/[facility]/ZIP Co de Phone Number [facility] [address] [place] [address] * (ABNORMAL) POCT glucose (07/26/2024 7:58 PM CDT) Glucose, POC 250(H) 70 - 199 mg/dL Blood 07/26/2024 7:58 PM CDT 07/26/2024 7:58 PM CDT Octavia Lemus MD LAB POCT O RDERABLES - DEVICE Final Result Performing Organization Address [facility] Co de [place] [address] * POCT glucose (07/26/2024 5:26 PM CDT) [facility] Signature Glucose, POC 123 70 - 199 mg/dL Blood 07/26/2024 5:26 PM CDT 07/26/2024 5:26 PM CDT Octavia Lemus MD LAB POCT O RDERABLES - DEVICE Final Result Performing Organization Address City/[facility]/ZIP Co de Phone Number [facility] [place] [address] * ECG 12 lead (07/26/2024 4:20 PM CDT) Ventricular Rate EKG/Min 68 BPM [facility] Atrial Rate 68 BPM [facility] UT-Interval (MSEC) 120 ms [facility] QRS-Interval (MSEC) 92 ms [facility] QT-Interval (MSEC) 484 ms [facility] QTc 514 ms [facility] P [place] 75 degrees [facility] R [place] 97 degrees [facility] T [place] 232 degrees [facility] Diagnosis Normal sinus rhythm Rightward axis Poor r wave progression associated with abnormal lead placement, obesity, pulmonary disease, anterior infarction. (cited on or before 14-JUL-2024) ST & T wave abnormality, consider inferolateral ischemia Prolonged QT Abnormal ECG When compared with ECG of 19-JUL-2024 02:31, Vent. rate has decreased BY ??35 BPM Serial changes of Anterior infarct Present Confirmed by SOHAM WINTERS M.D ([id number]) on 07/28/2024 11:27:24 AM [facility] 07/26/2024 4:20 PM CDT 07/28/2024 11:27 AM CDT us Caroline BERNAL ECG ORDERABLES Final R esult Performing Organization Address City/[facility]/ZIP Co de Phone Number [facility] [employer] [facility] * (ABNORMAL) POCT glucose (07/26/2024 11:38 AM CDT) Glucose, POC 225(H) 70 - 199 mg/dL Blood 07/26/2024 11:3 8 AM CDT 07/26/2024 11:38 AM CDT Octavia Lemus MD LAB POCT O RDERABLES - DEVICE Final Result Performing Organization Address [facility] Co de Phone Number [facility] Department of [address] [place] [address] * (ABNORMAL) POCT glucose (07/26/2024 7:38 AM CDT) Glucose, POC 334(H) 70 - 199 mg/dL Blood 07/26/2024 7:38 AM CDT 07/26/2024 7:38 AM CDT Octavia Lemus MD LAB POCT O RDERABLES - DEVICE Final Result Performing Organization Address [facility] Co de Phone Number [facility] Department [place] [address] * eGFR (07/25/2024 9:39 PM CDT) eGFR >90 >=60 mL/min/1. 73 m2 [...] interpretive data was last reviewed 2021. Blood 07/25/2024 9:39 PM CDT 07/25/2024 10:19 PM CDT us Caroline BERNAL LAB BLOOD ORDERABLES Fi nal Result [facility] Department [place] [address] * (ABNORMAL) Differential, auto (07/25/2024 9:39 PM CDT) Neutrophil abs 13.0(H) 1.5 - 6.5 K/cumm Imm gran abs 0.2(H) 0.0 - 0.1 K/cumm [facility] Lymphocyte abs 2.2 0.8 - 3.3 K/cumm [facility] Monocyte abs 1.2(H) 0.2 - 0.8 K/cumm [facility] Eosinophil abs 0.0 0.0 - 0.5 K/cumm [facility] Basophil abs 0.0 0.0 - 0.1 K/cumm [facility] Neutrophil pct 78.0 % [facility] Comment: Confirmed by smear review Interpretive Data Percent cell count reference ranges are not reported, since discordance with absolute values may lead to misinterpretation of CBC data. Current Interpretive Data was last revised on 2018. Imm gran pct 1.1 % [facility] Comment: Interpretive Data Percent cell count reference ranges are not reported, since discordance with absolute values may lead to misinterpretation of CBC data. Current Interpretive Data was last revised on 2018. Lymphocyte pct 13.3 % [facility] Comment: Interpretive Data Percent cell count reference ranges are not reported, since discordance with absolute values may lead to misinterpretation of CBC data. Current Interpretive Data was last revised on 2018. Monocyte pct 7.4 % [facility] Comment: Interpretive Data Percent cell count reference ranges are not reported, since discordance with absolute values may lead to misinterpretation of CBC data. Current Interpretive Data was last revised on 2018. Eosinophil pct 0.1 % [facility] Comment: Interpretive Data Percent cell count reference ranges are not reported, since discordance with absolute values may lead to misinterpretation of CBC data. Current Interpretive Data was last revised on 2018. Basophil pct 0.1 % [facility] Comment: Interpretive Data Percent cell count reference ranges are not reported, since discordance with absolute values may lead to misinterpretation of CBC data. Current Interpretive Data was last revised on 2018. Blood 07/25/2024 9:39 PM CDT 07/25/2024 10:19 PM CDT us Caroline BERNAL LAB BLOOD ORDERABLES Fi nal Result [facility] Department [place] [address] * (ABNORMAL) Comprehensive metabolic panel (07/25/2024 9:39 PM CDT) Sodium 140 135 - 145 mmol/L Potassium, pl 4.1 3.3 - 4.9 mmol/L [facility] Chloride 96(L) 97 - 110 mmol/L [facility] CO2 41(H) 22 - 32 mmol/L [facility] Anion gap 3 2 - 15 mmol/L [facility] BUN 20 6 - 25 mg/dL [facility] Creatinine 0.75(L) 0.80 - 1.30 mg/dL [facility] Glucose 157 70 - 199 mg/dL [facility] Comment: Interpretive Data Fasting glucose [...] interpretive data was last revised 2022. Calcium 8.0(L) 8.5 - 10.3 mg/dL [facility] Bilirubin, total 0.2 0.1 - 1.2 mg/dL [facility] Protein, pl 6.0(L) 6.5 - 8.5 g/dL [facility] Albumin 2.8(L) 3.5 - 5.0 g/dL [facility] Alk phos 111 40 - 130 Units/L [facility] ALT 23 7 - 55 Units/L [facility] AST 31 10 - 50 Units/L [facility] Blood 07/25/2024 9:39 PM CDT 07/25/2024 10:19 PM CDT us Caroline BERNAL LAB BLOOD ORDERABLES Fi nal Result [facility] Department [place] [address] * (ABNORMAL) CBC with auto differential (07/25/2024 9:39 PM CDT) WBC 16.7(H) 3.8 - 9.9 K/cumm Hgb 9.4(L) 13.0 - 17.5 g/dL [facility] Hct 29.2(L) 38.9 - 50.3 % [facility] Plt 296 150 - 400 K/cumm [facility] MPV 11.4 9.1 - 12.3 fL [facility] RBC 2.82(L) 4.30 - 5.80 M/cumm [facility] MCV 103.5(H) 81.3 - 96.4 fL [facility] MCH 33.3 27.1 - 33.3 pg [facility] MCHC 32.2(L) 32.3 - 35.7 g/dL [facility] RDW CV 19.9(H) 11.1 - 14.9 % [facility] RDW SD 70.4(H) 35.7 - 48.1 fL [facility] NRBC abs 2.27(H) 0.00 - 0.01 K/cumm [facility] Blood 07/25/2024 9:39 PM CDT 07/25/2024 10:19 PM CDT Caroline BERNAL LAB BLOOD ORDERABLES Ed ited Result - Final [facility] Department [place] [address] * Magnesium (07/25/2024 9:39 PM CDT) [facility] Magnesium 1.5 1.4 - 2.5 mg/dL Blood 07/25/2024 9:39 PM CDT 07/25/2024 10:19 PM CDT Caroline BERNAL LAB BLOOD ORDERABLES Fi nal Result Performing Organization Address [facility]/ZIP Co de Phone Number [facility] [place] [address] * POCT glucose (07/25/2024 9:26 PM CDT) Glucose, POC 187 70 - 199 mg/dL Blood 07/25/2024 9:26 PM CDT 07/25/2024 9:26 PM CDT us Octavia Lemus MD LAB POCT O RDERABLES - DEVICE Final Result Performing Organization Address [facility] Co de Phone Number [facility] [place] [address] * (ABNORMAL) POCT glucose (07/25/2024 5:29 PM CDT) Glucose, POC 270(H) 70 - 199 mg/dL Blood 07/25/2024 5:29 PM CDT 07/25/2024 5:29 PM CDT us Octavia Lemus MD LAB POCT O RDERABLES - DEVICE Final Result Performing Organization Address [facility] Co de Phone Number [facility] [place] [address] * (ABNORMAL) POCT glucose (07/25/2024 12:09 PM CDT) Glucose, POC 324(H) 70 - 199 mg/dL Blood 07/25/2024 12:0 9 PM CDT 07/25/2024 12:09 PM CDT us Octavia Lemus MD LAB POCT O RDERABLES - DEVICE Final Result Performing Organization Address City/[facility]/ZIP Co de Phone Number [facility] Department [place] [address] * (ABNORMAL) POCT glucose (07/25/2024 7:59 AM CDT) [facility] Glucose, POC 288(H) 70 - 199 mg/dL Blood 07/25/2024 7:59 AM CDT 07/25/2024 7:59 AM CDT Octavia Lemus MD LAB POCT O RDERABLES - DEVICE Final Result [facility] [place] [address] * POCT glucose (07/25/2024 2:04 AM CDT) [facility] Glucose, POC 145 70 - 199 mg/dL Blood 07/25/2024 2:04 AM CDT 07/25/2024 2:04 AM CDT Octavia Lemus MD LAB POCT O RDERABLES - DEVICE Final Result Performing Organization Address City/[facility]/ZIP Co de Phone Number [facility] Department [place] [address] * eGFR (07/24/2024 9:39 PM CDT) [facility] eGFR >90 >=60 mL/min/1. 73 m2 Comment: [...] interpretive data was last reviewed 2021. Blood 07/24/2024 9:39 PM CDT 07/24/2024 10:37 PM CDT Caroline BERNAL LAB BLOOD ORDERABLES [facility] Result [facility] [place] [address] * (ABNORMAL) Differential, auto (07/24/2024 9:39 PM CDT) Pathologist [facility] Neutrophil abs 15.7(H) 1.5 - 6.5 K/cumm Imm gran abs 0.2(H) 0.0 - 0.1 K/cumm [facility] Lymphocyte abs 0.3(L) 0.8 - 3.3 K/cumm [facility] Monocyte abs 1.2(H) 0.2 - 0.8 K/cumm [facility] Eosinophil abs 0.0 0.0 - 0.5 K/cumm [facility] Basophil abs 0.0 0.0 - 0.1 K/cumm [facility] Neutrophil pct 90.0 % [facility] Comment: Confirmed by smear review Interpretive Data Percent cell count reference ranges are not reported, since discordance with absolute values may lead to misinterpretation of CBC data. Current Interpretive Data was last revised on 2018. Imm gran pct 1.4 % [facility] Comment: Interpretive Data Percent cell count reference ranges are not reported, since discordance with absolute values may lead to misinterpretation of CBC data. Current Interpretive Data was last revised on 2018. Lymphocyte pct 1.7 % [facility] Comment: Interpretive Data Percent cell count reference ranges are not reported, since discordance with absolute values may lead to misinterpretation of CBC data. Current Interpretive Data was last revised on 2018. Monocyte pct 6.8 % [facility] Comment: Interpretive Data Percent cell count reference ranges are not reported, since discordance with absolute values may lead to misinterpretation of CBC data. Current Interpretive Data was last revised on 2018. Eosinophil pct 0.0 % [facility] Comment: Interpretive Data Percent cell count reference ranges are not reported, since discordance with absolute values may lead to misinterpretation of CBC data. Current Interpretive Data was last revised on 2018. Basophil pct 0.1 % [facility] Comment: Interpretive Data Percent cell count reference ranges are not reported, since discordance with absolute values may lead to misinterpretation of CBC data. Current Interpretive Data was last revised on 2018. Blood 07/24/2024 9:39 PM CDT 07/24/2024 10:35 PM CDT Caroline BERNAL LAB BLOOD ORDERABLES Fi nal Result [facility] Department [place] [address] * (ABNORMAL) Comprehensive metabolic panel (07/24/2024 9:39 PM CDT) Sodium 140 135 - 145 mmol/L Potassium, pl 3.7 3.3 - 4.9 mmol/L [facility] Chloride 96(L) 97 - 110 mmol/L [facility] CO2 33(H) 22 - 32 mmol/L [facility] Anion gap 11 2 - 15 mmol/L [facility] BUN 22 6 - 25 mg/dL [facility] Creatinine 0.64(L) 0.80 - 1.30 mg/dL [facility] Glucose 162 70 - 199 mg/dL [facility] Comment: Interpretive Data Fasting glucose [...] interpretive data was last revised 2022. Calcium 8.1(L) 8.5 - 10.3 mg/dL [facility] Bilirubin, total 0.2 0.1 - 1.2 mg/dL [facility] Protein, pl 6.9 6.5 - 8.5 g/dL [facility] Albumin 3.2(L) 3.5 - 5.0 g/dL [facility] Alk phos 122 40 - 130 Units/L [facility] ALT 27 7 - 55 Units/L [facility] AST 43 10 - 50 Units/L [facility] Blood 07/24/2024 9:39 PM CDT 07/24/2024 10:37 PM CDT us Caroline BERNAL LAB BLOOD ORDERABLES Fi nal Result [facility] Department [place] [address] * (ABNORMAL) CBC with auto differential (07/24/2024 9:39 PM CDT) Pathologist [facility] WBC 17.4(H) 3.8 - 9.9 K/cumm Hgb 9.1(L) 13.0 - 17.5 g/dL [facility] Hct 28.7(L) 38.9 - 50.3 % [facility] Plt 338 150 - 400 K/cumm [facility] MPV 11.1 9.1 - 12.3 fL [facility] RBC 2.77(L) 4.30 - 5.80 M/cumm [facility] MCV 103.6(H) 81.3 - 96.4 fL [facility] MCH 32.9 27.1 - 33.3 pg [facility] MCHC 31.7(L) 32.3 - 35.7 g/dL [facility] RDW CV 19.3(H) 11.1 - 14.9 % [facility] RDW SD 69.0(H) 35.7 - 48.1 fL [facility] NRBC abs 2.61(H) 0.00 - 0.01 K/cumm [facility] Blood 07/24/2024 9:39 PM CDT 07/24/2024 10:35 PM CDT Result [facility] Caroline BERNAL LAB BLOOD ORDERABLES Ed ited Result - Final Performing Organization Address City/[facility]/ZIP Co de Phone Number [facility] Department [place] [address] * Magnesium (07/24/2024 9:39 PM CDT) Magnesium 1.9 1.4 - 2.5 mg/dL Blood 07/24/2024 9:39 PM CDT 07/24/2024 10:36 PM CDT Result [facility] Caroline BERNAL LAB BLOOD ORDERABLES Fi nal Result Performing Organization Address City/[facility]/ZIP Co de Phone Number [facility] Department [place] [address] * (ABNORMAL) POCT glucose (07/24/2024 8:47 PM CDT) Glucose, POC 217(H) 70 - 199 mg/dL Blood 07/24/2024 8:47 PM CDT 07/24/2024 8:47 PM CDT Octavia Lemus MD LAB POCT O RDERABLES - DEVICE Final Result Performing Organization Address City/[facility]/ZIP Co de Phone Number [facility] Department [place] [address] * (ABNORMAL) POCT glucose (07/24/2024 5:10 PM CDT) Glucose, POC 251(H) 70 - 199 mg/dL Blood 07/24/2024 5:10 PM CDT 07/24/2024 5:10 PM CDT us Octavia Lemus MD LAB POCT O RDERABLES - DEVICE Final Result Performing Organization Address [facility] Co de Phone Number [facility] [place] [address] * TRANSTHORACIC ECHO (TTE) COMPLETE W DOPPLER/CF W CONTRAST (07/24/2024 5:01 PM CDT) [facility] LV EF 30 % [facility] Anatomical Region Laterality Modality Ultrasound 07/24/2024 2:15 PM CDT Narrative 07/24/2024 6:22 PM CDT Patient name: Bri Jones Date of test: 07/24/2024 Type of test: TTE w/Doppler Hospital #: 0 Date of : 1965 (M) Plastic Surgery Coordinator: Mariah Peters RDCS, [facility] Referring Physician: CAROLINE MARIA MD Contrast Agent: 0.8 ml Optison Administered, (2.2 ml wasted). Contrast Administered by: Sidra Garcia RN Supervised/Interpreted by: Bladimir Henao MD Diagnosis: Location: [facility] Reason for test: H/o CHF, worsening BNP and SOB MV Structure: Normal, ?MV Motion: Normal, ?? Mitral Annulus: Normal AV Structure: tricuspid and is Normal, ?? AV Motion: Normal Aotic root: Normal, ?TM: Normal, ?? PV: Normal Valvular Vegetations: none seen, ?Mass/Thrombi: none seen RA: Normal Measurements: ?M-Mode ?Normal ? Aotic Root: ? <3.8 ? LA: ? <4.0 ? RV: ? <2.8 ? LV(ED): ? <5.7 ? LV(ES): ? Variable ?2D Linear Normal ? Aotic Root: 3.1 cm ?<4.0 ? Ao Indexed: 1.8 cm/M2 <2.0 ? LA: ? <4.0 ? RV: ? 5.0 cm ?<4.2 ? LV(ED): ? 4.4 cm ?<5.9 ? LV(ES): ? 3.5 cm ?<4.0 ?2D Vol. ?? Normal ?Indexed ?? Indexed Normal RA: ? 30.0 ml ? 17.1 ml/M2 ?11-39 ? LA: ? 43.0 ml ? 24.5 ml/M2 ?16-34 ? RV: ? <12.7 ? LV(ED): ? 114.0 ml ??62-150 ?64.9 ml/M2 ?<75 ? LV(ES): ? 21-61 ? <32 ?3D Vol. ? Indexed Normal LV(ED): ?<75 ? LV(ES): ?<32 ? LV EF: 30 % ?? (Normal: >=52%) ?? LV Septum: 0.9 cm ?(Normal: <1.0 cm) Wall Motion Scoring (1=Normal 2=Hypo 3=Akinetic 4=Dyskin./Aneurysm 0=Not visualized) Parasternal Long [place]:MAS=2 BAS=2 MIL=2 KEN=2 Parasternal Short [place]:MAS=2 MIS=2 TN=2 MIL=2 MAL=2 MA=2 Apical 4 Chambers:=2 MIS=2 BIS=2 BAL=2 MAL=2 AL=2 AC=2 Apical 2 Chambers:AI=2 TN=2 BI=2 BA=2 MA=2 AA=2 AC=2 LV Global Longitudinal Strain: -8.8% ??(Normal <-17%) RV Global Longitudinal Strain: -12% ??(Normal <-17%) LV Function: Moderate Global reduction in LV Ejection Fraction (EF=30-40%); EF 30%via visual assessment RV Function: mild global hypokinesis Septal Motion: Normal Pericardial Effusion: Trivial Atrial Septum: Normal DOPPLER/COLOR FLOW DOPPLER RESULTS: Diastolic Function: Grade II, increased mean LA pres. Tricuspid Valve: normal TV Pulmonic Valve: normal PV AV Regurgitation: No AR seen AV Stenosis: no AV Area: ??cm2 AV Pressure Gradient (mmHg): Mean: 0, Peak:0 MV Regurgitation: Mild-moderate MR MV Stenosis: no MS MV Area: ??cm2 MV Pressure Gradient (mmHg): Mean: 0 MV ERO: ??cm Regurg. Vol.: ??ml/beat Regurg. Frac.: ??% PA Pressure: 33+RA mmHg DOPPLER/COLOR FOLOW DOPPLER COMMENTS: No AR seen, Mild-moderate MR, no , no MS, normal TV, normal PV. Diastolic function: Grade II, increased mean LA pres. CONTRAST: 0.8 ml Optison Administered, (2.2 ml wasted). SUMMARY: TDS. Poor acoustic window. ??LV cavity size is normal with moderate global hypokinesis. LVEF visually estimated 30%. CI 1.07 l/min/m2. ??LA is normal. Mild RV cavity enlargement with moderate dysfunction. Mild-moderate MR. Grade II diastolic function characterized by elevated mean LA pressure. ??Estimated PA systolic pressure 33+RA(15) mmHg. ??Dilated inferior vena cava. Reduced global LV strain (-8.8%). ?? Normal aorta. Changes noted. Confirmed on ??07/24/2024 - 18:22:00 by Bladimir Henao MD By signing this report, the attending supervisor assembly room certifies that he or she has personally supervised and interpreted the echocardiogram and has reviewed and or edited and agrees with the written comments contained within the report. Procedure Note Cristobal, Bladimir Casey MD - 07/24/2024 Patient name: Bri Jones Date of test: 07/24/2024 Type of test: TTE w/Doppler Hospital #: 0 Date of : 1965 (M) Plastic Surgery Coordinator: Mariah Peters, ZAFAR, [facility] Referring Physician: CAROLINE MARIA MD Contrast Agent: 0.8 ml Optison Administered, (2.2 ml wasted). Contrast Administered by: Sidra Garcia RN Supervised/Interpreted by: Bladimir Henao MD Diagnosis: Location: [facility] Reason for test: H/o CHF, worsening BNP and SOB MV Structure: Normal, MV Motion: Normal, Mitral Annulus: Normal AV Structure: tricuspid and is Normal, AV Motion: Normal Aotic root: Normal, TM: Normal, PV: Normal Valvular Vegetations: none seen, Mass/Thrombi: none seen RA: Normal Measurements: M-Mode Normal Aotic Root: <3.8 LA: <4.0 RV: <2.8 LV(ED): <5.7 LV(ES): Variable 2D Linear Normal Aotic Root: 3.1 cm <4.0 Ao Indexed: 1.8 cm/M2 <2.0 LA: <4.0 RV: 5.0 cm <4.2 LV(ED): 4.4 cm <5.9 LV(ES): 3.5 cm <4.0 2D Vol. Normal Indexed Indexed Normal RA: 30.0 ml 17.1 ml/M2 11-39 LA: 43.0 ml 24.5 ml/M2 16-34 RV: <12.7 LV(ED): 114.0 ml 62-150 64.9 ml/M2 <75 LV(ES): 21-61 <32 3D Vol. Indexed Normal LV(ED): <75 LV(ES): <32 LV EF: 30 % (Normal: >=52%) LV Septum: 0.9 cm (Normal: <1.0 cm) Wall Motion Scoring (1=Normal 2=Hypo 3=Akinetic 4=Dyskin./Aneurysm 0=Not visualized) Parasternal Long [place]:MAS=2 BAS=2 MIL=2 KEN=2 Parasternal Short [place]:MAS=2 MIS=2 TN=2 MIL=2 MAL=2 MA=2 Apical 4 Chambers:=2 MIS=2 BIS=2 BAL=2 MAL=2 AL=2 AC=2 Apical 2 Chambers:AI=2 TN=2 BI=2 BA=2 MA=2 AA=2 AC=2 LV Global Longitudinal Strain: -8.8% (Normal <-17%) RV Global Longitudinal Strain: -12% (Normal <-17%) LV Function: Moderate Global reduction in LV Ejection Fraction (EF=30-40%); EF 30%via visual assessment RV Function: mild global hypokinesis Septal Motion: Normal Pericardial Effusion: Trivial Atrial Septum: Normal DOPPLER/COLOR FLOW DOPPLER RESULTS: Diastolic Function: Grade II, increased mean LA pres. Tricuspid Valve: normal TV Pulmonic Valve: normal PV AV Regurgitation: No AR seen AV Stenosis: no AV Area: cm2 AV Pressure Gradient (mmHg): Mean: 0, Peak:0 MV Regurgitation: Mild-moderate MR MV Stenosis: no MS MV Area: cm2 MV Pressure Gradient (mmHg): Mean: 0 MV ERO: cm Regurg. Vol.: ml/beat Regurg. Frac.: % PA Pressure: 33+RA mmHg DOPPLER/COLOR FOLOW DOPPLER COMMENTS: No AR seen, Mild-moderate MR, no , no MS, normal TV, normal PV. Diastolic function: Grade II, increased mean LA pres. CONTRAST: 0.8 ml Optison Administered, (2.2 ml wasted). SUMMARY: TDS. Poor acoustic window. LV cavity size is normal with moderate global hypokinesis. LVEF visually estimated 30%. CI 1.07 l/min/m2. LA is normal. Mild RV cavity enlargement with moderate dysfunction. Mild-moderate MR. Grade II diastolic function characterized by elevated mean LA pressure. Estimated PA systolic pressure 33+RA(15) mmHg. Dilated inferior vena cava. Reduced global LV strain (-8.8%). Normal aorta. Changes noted. Confirmed on 07/24/2024 - 18:22:00 by Bladimir Henao MD By signing this report, the attending supervisor assembly room certifies that he or she has personally supervised and interpreted the echocardiogram and has reviewed and or edited and agrees with the written comments contained within the report. Caroline BERNAL CV ECHO PROCEDURES Pilar l Result * (ABNORMAL) POCT glucose (07/24/2024 12:23 PM CDT) Glucose, POC 321(H) 70 - 199 mg/dL Blood 07/24/2024 12:2 3 PM CDT 07/24/2024 12:23 PM CDT Octavia Lemus MD LAB POCT O RDERABLES - DEVICE Final Result [facility] [place] [address] * (ABNORMAL) POCT glucose (07/24/2024 8:33 AM CDT) Glucose, POC 330(H) 70 - 199 mg/dL Blood 07/24/2024 8:33 AM CDT 07/24/2024 8:33 AM CDT Octavia Lemus MD LAB POCT O RDERABLES - DEVICE Final Result [facility] Department [place] [address] * (ABNORMAL) POCT glucose (07/24/2024 6:34 AM CDT) [facility] Glucose, POC 305(H) 70 - 199 mg/dL Blood 07/24/2024 6:34 AM CDT 07/24/2024 6:34 AM CDT Octavia Lemus MD LAB POCT O RDERABLES - DEVICE Final Result Performing Organization Address City/[facility] Co de Phone Number [facility] Department [place] [address] * Respiratory pathogen panel Nasopharyngeal (07/24/2024 2:35 AM CDT) [facility] Influenza A RNA Not Detected Not Detected Influenza B RNA Not Detected Not Detected [facility] RSV RNA Not Detected Not Detected [facility] COVID-19 RNA Not Detected Not Detected [facility] Coronavirus 229E RNA Not Detected Not Detected [facility] Coronavirus HKU1 RNA Not Detected Not Detected [facility] Coronavirus NL63 RNA Not Detected Not Detected [facility] Coronavirus OC43 RNA Not Detected Not Detected [facility] Adenovirus DNA Not Detected Not Detected [facility] Metapneumovirus RNA Not Detected Not Detected [facility] Rhinovirus/Enterov irus RNA Not Detected Not Detected [facility] Parainfluenza 1 RNA Not Detected Not Detected [facility] Parainfluenza 2 RNA Not Detected Not Detected [facility] Parainfluenza 3 RNA Not Detected Not Detected [facility] Parainfluenza 4 RNA Not Detected Not Detected [facility] B. pertussis DNA Not Detected Not Detected [facility] B. parapertussis DNA Not Detected Not Detected [facility] C. pneumoniae DNA Not Detected Not Detected [facility] M. pneumoniae DNA Not Detected Not Detected [facility] Nasopharyngeal 07/24/2024 2: 35 AM CDT 07/24/2024 3:44 AM CDT Carlos A POOLE BJ - 07/24/2024 4:48 AM CDT Is the Patient experiencing symptoms consistent with COVID?->Yes Surveillance testing for transplant patient?->No ??Interpretive Data The [employer] FilmArray Respiratory Panel (RP2.1) assay is a multiplexed real-time PCR based nucleic acid test capable of simultaneous qualitative detection and identification of multiple respiratory viral and bacterial nucleic acids, including SARS Coronavirus 2 (the causative agent of COVID-19). The following bacteria, viruses and virus subtypes can be identified using the FilmArray RP2.1 assay: Bordetella pertussis, Bordetella parapertussis, Chlamydia pneumoniae, Mycoplasma pneumoniae, Adenovirus, SARS Coronavirus 2, seasonal coronaviruses (Coronavirus HKU1, Coronavirus NL63, Coronavirus 229E, and Coronavirus OC43), Influenza A, Influenza A subtype H1, Influenza A subtype H3, Influenza A subtype 2009 H1, Influenza B, Metapneumovirus, Parainfluenza 1, Parainfluenza 2, Parainfluenza 3, Parainfluenza 4, RSV, Rhinovirus/Enterovirus. Due to the genetic similarity between human Rhinovirus and Enterovirus, the FilmArray RP2.1 assay cannot reliably differentiate them. Coronavirus OC43 may cross-react with some isolates of Coronavirus HKU1. ??A dual positive result may be due to cross-reactivity or may indicate a co-infection. The detection and identification of specific viral and bacterial nucleic acids from individuals exhibiting signs and symptoms of a respiratory infection aids in the diagnosis of respiratory infection if used in conjunction with other clinical and epidemiological information. ??The results of this test should not be used as the sole basis for diagnosis, treatment, or other management decisions. ??Negative results in the setting of a respiratory illness may be due to infection with pathogens that are not detected by this test. ??Positive results do not rule out infection/co-infection with other organisms. ??The agent(s) detected by the FilmArray RP2.1 may not be the definite cause of disease. ??Additional testing (lab, imaging, etc.) may be necessary when evaluating a patient with possible respiratory tract infection. The FilmArray RP2.1 assay has FDA clearance for testing of VAMP STITCHER swabs. ??The performance of additional specimen types has been assessed by the performing laboratory. ??The performance characteristics of this assay have been determined by [facility]. Current interpretive data was last revised on 22. us Wilbert Strickland MD LAB MICROBIOLOGY - GENERA L ORDERABLES Final Result Performing Organization Address City/[facility]/ZIP Co de Phone Number [facility] Department [place] [address] * (ABNORMAL) POCT glucose (07/24/2024 1:58 AM CDT) Glucose, POC 373(H) 70 - 199 mg/dL Blood 07/24/2024 1:58 AM CDT 07/24/2024 1:58 AM CDT Brittny Escalera MD LAB POCT ORDERABLES - DEVICE Final Result Performing Organization Address [facility] Co de Phone Number [facility] Department [place] [address] [place] [address] * CT Body Outside Consult (07/24/2024 1:53 AM CDT) Anatomical Region Laterality Modality Body N/A Computed Tomogra phy 07/24/2024 9:28 AM CDT Impressions 07/24/2024 3:30 PM CDT 1. 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 ??These findings are not significant changed from CT dated 07/14/2024, but remain worse than CT dated 05/28/2024. 2. Lower lobe mucus plugging with nodularity suspicious for superimposed aspiration pneumonia, which is new from CT dated 05/28/2024. The findings, conclusions and recommendations within this report do not replace the initial findings, conclusions ??and recommendations made at the facility where the study was performed based upon the imaging and clinical condition at that time. ??Comparison with the prior report and clinical history is necessary. ??The provided images may or may not represent the [employer] source data set and thus may contain changes that may lower the accuracy of this second-opinion interpretation. Dictated by: Slick Guzman M.D. The radiology attending physician has personally reviewed this study, and had reviewed and/or edited this written report and agrees with it. Electronically signed by: Cameron Lenz M.D. Narrative 07/24/2024 3:30 PM CDT EXAMINATION: RADIOLOGY CONSULTATION ON OUTSIDE IMAGING STUDY STUDY INITIALLY PERFORMED: 07/21/2024 at unknown. TYPE OF STUDY: Multiple CTA images of the chest with PE protocol are provided at the time of this interpretation. CONTRAST ROUTE: Contrast was administered via the intravenous route. The protocol was adequate to address the clinical question. The outside final report was not available at the time of this second opinion interpretation. 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 COMPARISON: CT chest with contrast dated 07/14/2024. FINDINGS: No central, segmental, or subsegmental pulmonary embolism. ??Mild coronary artery calcifications. ??There is mucous plugging and debris throughout the bilateral tracheobronchial trees, likely aspiration. There is a large cavity in the right lung apex with internal frond-like contents, not significantly changed. ??There is a general background of emphysema throughout the lungs. ??There are additional peribronchial vascular opacities, some of which are slightly improved from CT dated 07/14/2024, for instance in the medial right upper lobe, but remain persistent. ??There are additional irregular nodules throughout the lungs, which are predominantly new when compared with the 05/28/2024 exam. There are no new pulmonary nodule seen. No pleural effusion or pneumothorax. No acute CT findings in the imaged upper abdomen. Severe atherosclerosis of the upper abdominal aorta. No suspicious osseous lesions. Procedure Note aCmeron Lenz MD - 07/24/2024 EXAMINATION: RADIOLOGY CONSULTATION ON OUTSIDE IMAGING STUDY STUDY INITIALLY PERFORMED: 07/21/2024 at unknown. TYPE OF STUDY: Multiple CTA images of the chest with PE protocol are provided at the time of this interpretation. CONTRAST ROUTE: Contrast was administered via the intravenous route. The protocol was adequate to address the clinical question. The outside final report was not available at the time of this second opinion interpretation. 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 COMPARISON: CT chest with contrast dated 07/14/2024. FINDINGS: No central, segmental, or subsegmental pulmonary embolism. Mild coronary artery calcifications. There is mucous plugging and debris throughout the bilateral tracheobronchial trees, likely aspiration. There is a large cavity in the right lung apex with internal frond-like contents, not significantly changed. There is a general background of emphysema throughout the lungs. There are additional peribronchial vascular opacities, some of which are slightly improved from CT dated 07/14/2024, for instance in the medial right upper lobe, but remain persistent. There are additional irregular nodules throughout the lungs, which are predominantly new when compared with the 05/28/2024 exam. There are no new pulmonary nodule seen. No pleural effusion or pneumothorax. No acute CT findings in the imaged upper abdomen. Severe atherosclerosis of the upper abdominal aorta. No suspicious osseous lesions. IMPRESSION: 1. 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 These findings are not significant changed from CT dated 07/14/2024, but remain worse than CT dated 05/28/2024. 2. Lower lobe mucus plugging with nodularity suspicious for superimposed aspiration pneumonia, which is new from CT dated 05/28/2024. The findings, conclusions and recommendations within this report do not replace the initial findings, conclusions and recommendations made at the facility where the study was performed based upon the imaging and clinical condition at that time. Comparison with the prior report and clinical history is necessary. The provided images may or may not represent the match-e-[employer]-nash-she-wish band source data set and thus may contain changes that may lower the accuracy of this second-opinion interpretation. Dictated by: Slick Guzman M.D. The radiology attending physician has personally reviewed this study, and had reviewed and/or edited this written report and agrees with it. Electronically signed by: Cameron Lenz M.D. us Wilbert Strickland MD IMG CT PROCEDURES Final R esult * XR Outside Reference (07/24/2024 1:50 AM CDT) Impressions RAD_PACS[facility] - 07/24/2024 1:50 AM CDT These images are for Reference purposes only and have not been reviewed by [facility] Radiology. ??There will be no report generated by a [facility] Radiologist. Narrative RAD_PACS_[facility] - 07/24/2024 1:50 AM CDT EXAMINATION: ??Images For Reference Purposes Only us Wilbert Strickland MD IMG XR PROCEDURES Final R esult [facility] * eGFR (07/24/2024 12:28 AM CDT) eGFR >90 >=60 mL/min/1. 73 [...] interpretive data was last reviewed 2021. Blood 07/24/2024 12:2 8 AM CDT 07/24/2024 12:45 AM CDT us Wilbert Strickland MD LAB BLOOD ORDERABLES Pilar pawel Result [facility] Department [place] [address] * (ABNORMAL) Differential, auto (07/24/2024 12:28 AM CDT) Neutrophil abs 16.5(H) 1.5 - 6.5 K/cumm Imm gran abs 0.3(H) 0.0 - 0.1 K/cumm [facility] Lymphocyte abs 0.0(L) 0.8 - 3.3 K/cumm [facility] Monocyte abs 0.5 0.2 - 0.8 K/cumm [facility] Eosinophil abs 0.0 0.0 - 0.5 K/cumm [facility] Basophil abs 0.0 0.0 - 0.1 K/cumm [facility] Neutrophil pct 95.4 % [facility] Comment: Confirmed by smear review Interpretive Data Percent cell count reference ranges are not reported, since discordance with absolute values may lead to misinterpretation of CBC data. Current Interpretive Data was last revised on 2018. Imm gran pct 1.4 % [facility] Comment: Interpretive Data Percent cell count reference ranges are not reported, since discordance with absolute values may lead to misinterpretation of CBC data. Current Interpretive Data was last revised on 2018. Lymphocyte pct 0.0 % [facility] Comment: Interpretive Data Percent cell count reference ranges are not reported, since discordance with absolute values may lead to misinterpretation of CBC data. Current Interpretive Data was last revised on 2018. Monocyte pct 3.1 % [facility] Comment: Interpretive Data Percent cell count reference ranges are not reported, since discordance with absolute values may lead to misinterpretation of CBC data. Current Interpretive Data was last revised on 2018. Eosinophil pct 0.0 % [facility] Comment: Interpretive Data Percent cell count reference ranges are not reported, since discordance with absolute values may lead to misinterpretation of CBC data. Current Interpretive Data was last revised on 2018. Basophil pct 0.1 % [facility] Comment: Interpretive Data Percent cell count reference ranges are not reported, since discordance with absolute values may lead to misinterpretation of CBC data. Current Interpretive Data was last revised on 2018. Blood 07/24/2024 12:2 8 AM CDT 07/24/2024 12:45 AM CDT Wilbert Strickland MD LAB BLOOD ORDERABLES Pilar l Result Performing Organization Address [facility] de Phone Number [facility] of [address] [place] [address] * (ABNORMAL) Blood gas, venous (07/24/2024 12:28 AM CDT) pH, Venous 7.41 7.32 - 7.43 PCO2, Venous 54(H) 40 - 50 mmHg [facility] PO2, Venous 58 mmHg [facility] Comment: Interpretive Data No Reference Range Established Current Interpretive Data was last revised on 2018. HCO3 Venous, Calculated 36(H) 20 - 30 mmol/L [facility] BE, venous 8 mmol/L [facility] Comment: Interpretive Data No Reference Range Established Current Interpretive Data was last revised on 2018. Blood 07/24/2024 12:2 8 AM CDT 07/24/2024 12:36 AM CDT Wilbert Strickland MD LAB BLOOD ORDERABLES Pilar l Result Performing Organization Address [facility] Co de Phone Number [facility] [address] [place] [address] * Tacrolimus level random (07/24/2024 12:28 AM CDT) Tacrolimus random 1.7 ng/mL Comment: Interpretive Data Testing performed by liquid chromatography-tandem mass spectrometry. ??Therapeutic concentrations vary depending on type of transplanted organ and time elapsed since transplant. ??Typical trough concentrations range from 5-15 ng/mL. ??This test was developed and its performance characteristics determined by the [facility] consistent with CLIA requirements. ??This test has not been cleared or approved by the [place] Food and Drug administration. ??Current interpretive data last reviewed 2020. Blood 07/24/2024 12:2 8 AM CDT 07/24/2024 12:45 AM CDT us Wilbert Strickland MD LAB BLOOD ORDERABLES Pilar armas Result [facility] Department [place] [address] * (ABNORMAL) Pro B-type natriuretic peptide (07/24/2024 12:28 AM CDT) NT-proBNP 36,400(H) <=300 pg/mL Comment: Repeated on Dilution Interpretive Comments: A. Dyspnea in Acute Care Setting All Ages: ?< 300 pg/ml, acute heart failure unlikely. < 50 yrs: ?300 - 450 pg/ml, further investigation warranted. ? > 450 pg/ml, acute heart failure likely. 50 - 74 yrs: ? 300 - 900 pg/ml, further investigation warranted. ? > 900 pg/ml, acute heart failure likely . > or = 75 yrs: ? 450 - 1800 pg/ml, further investigation warranted. ? > 1800 pg/ml, acute heart failure likely. B. Non-acute Setting < 75 yrs ? < 125 pg/ml, rules out heart failure. ? > or = 125 pg/ml, further investigation warranted. > or = 75 yrs ?< 450 pg/ml, rules out heart failure. ? > or = 450 pg/ml, further investigation warranted. - Knowledge of each individual patient's NT-proBNP range may be more useful than using similar cut-points for every patient. Please note that marked elevations in NT-proBNP levels may be observed in state other than Left Ventricular Congestive Failure, including: acute coronary syndromes, right heart strain/failure (including pulmonary embolism and cor pulmonale), critical illness, renal failure, as well as advanced age. - References: 1. Saad GARCIA et.al. Eur Heart J. 2006:27:330-337. 2. Asia CASTREJON, Holden ALFARO. J. AM Kizzy Cardiol: Cardiovasc Imag. 2009;2: 216- 225. Interpretive Data Last Revised Date: 2018. Blood 07/24/2024 12:2 8 AM CDT 07/24/2024 12:45 AM CDT us Wilbert Strickland MD LAB BLOOD ORDERABLES Pilar l Result Performing Organization Address [facility] de Phone Number [facility] Department of [address] [place] [address] * Lipase (07/24/2024 12:28 AM CDT) Lipase 45 10 - 99 Units/L Blood 07/24/2024 12:2 8 AM CDT 07/24/2024 12:45 AM CDT Wilbert Strickland MD LAB BLOOD ORDERABLES Pilar l Result Performing Organization Address [facility] de Phone Number [facility] Department [place] [address] * aPTT (07/24/2024 12:28 AM CDT) aPTT 36 28 - 38 sec Comment: Interpretive Data Heparin therapeutic range: 66.0 - 100.0 seconds. Range based on correlation with therapeutic heparin activity range of 0.3 - 0.7 Units/mL. Current interpretive data was last revised on 2023. Blood 07/24/2024 12:2 8 AM CDT 07/24/2024 1:03 AM CDT Wilbert Strickland MD LAB BLOOD ORDERABLES Pilar l Result Performing Organization Address [facility] Co de Phone Number [facility] [place] [address] * (ABNORMAL) Protime-INR (07/24/2024 12:28 AM CDT) PT 36.7(H) 9.7 - 13.0 sec INR 3.32(H) 0.90 - 1.20 [facility] Comment: Interpretive data Oral anticoagulant therapeutic ranges: Venous thromboembolism prophylaxis or treatment: 2.0-3.0 CARDIOLOGY Standard range: 2.0-3.0 High-intensity range: 2.5-3.5 Refer to indication-specific guidelines for appropriate target ranges for prosthetic heart valve replacement. Current interpretive data was last revised on 2019. Blood 07/24/2024 12:2 8 AM CDT 07/24/2024 1:03 AM CDT Wilbert Strickland MD LAB BLOOD ORDERABLES Pilar l Result Performing Organization Address City/[facility] Co de Phone Number [facility] [place] [address] * Type and screen (07/24/2024 12:28 AM CDT) ABO Rh A Positive Ursula, indirect Negative [facility] Blood 07/24/2024 12:2 8 AM CDT 07/24/2024 12:41 AM CDT Narrative [facility] - 07/24/2024 1:41 AM CDT Has the patient had Daratumumab or Isatuximab in the past 6 months?->Unknown Wilbert Strickland MD LAB BLOOD BANK TEST ORDER SUBHA Final Result [facility] Department [place] [address] * (ABNORMAL) CBC with auto differential (07/24/2024 12:28 AM CDT) WBC 17.3(H) 3.8 - 9.9 K/cumm Hgb 8.5(L) 13.0 - 17.5 g/dL [facility] Hct 26.6(L) 38.9 - 50.3 % [facility] Plt 357 150 - 400 K/cumm [facility] MPV 11.1 9.1 - 12.3 fL [facility] RBC 2.61(L) 4.30 - 5.80 M/cumm [facility] MCV 101.9(H) 81.3 - 96.4 fL [facility] MCH 32.6 27.1 - 33.3 pg [facility] MCHC 32.0(L) 32.3 - 35.7 g/dL [facility] RDW CV 19.2(H) 11.1 - 14.9 % [facility] RDW SD 65.4(H) 35.7 - 48.1 fL [facility] NRBC abs 2.53(H) 0.00 - 0.01 K/cumm [facility] Blood 07/24/2024 12:2 8 AM CDT 07/24/2024 12:45 AM CDT us Wilbert Strickland MD LAB BLOOD ORDERABLES Edit ed Result - Final [facility] Department [place] [address] * (ABNORMAL) Hepatic function panel (07/24/2024 12:28 AM CDT) [facility] Bilirubin, total 0.3 0.1 - 1.2 mg/dL Bilirubin, direct <0.2 0.1 - 0.3 mg/dL [facility] Protein, pl 6.5 6.5 - 8.5 g/dL [facility] Albumin 3.0(L) 3.5 - 5.0 g/dL [facility] Alk phos 114 40 - 130 Units/L [facility] ALT 20 7 - 55 Units/L [facility] AST 29 10 - 50 Units/L [facility] Blood 07/24/2024 12:2 8 AM CDT 07/24/2024 12:45 AM CDT Wilbert Strickland MD LAB BLOOD ORDERABLES Pilar l Result [facility] Department [place] [address] * (ABNORMAL) Basic metabolic panel (07/24/2024 12:28 AM CDT) [facility] Sodium 137 135 - 145 mmol/L Potassium, pl 3.8 3.3 - 4.9 mmol/L [facility] Chloride 95(L) 97 - 110 mmol/L [facility] CO2 33(H) 22 - 32 mmol/L [facility] Anion gap 9 2 - 15 mmol/L [facility] BUN 25 6 - 25 mg/dL [facility] Creatinine 0.68(L) 0.80 - 1.30 mg/dL [facility] Glucose 372(H) 70 - 199 mg/dL [facility] Comment: Interpretive Data Fasting glucose [...] interpretive data was last revised 2022. Calcium 8.1(L) 8.5 - 10.3 mg/dL [facility] Blood 07/24/2024 12:2 8 AM CDT 07/24/2024 12:45 AM CDT us Wilbert Strickland MD LAB BLOOD ORDERABLES Pilar l Result Performing Organization Address City/[facility]/ZIP Co de Phone Number [facility] Department [place] [address] * (ABNORMAL) POCT glucose (07/23/2024 10:33 PM CDT) [facility] Signature Glucose, POC 344(H) 70 - 199 mg/dL Blood 07/23/2024 10:3 3 PM CDT 07/23/2024 10:33 PM CDT us Brittny Escalera MD LAB POCT ORDERABLES - DEVICE Final Result Performing Organization Address City/[facility] Co de Phone Number [facility] Department of [address] [place] [address] documented in this encounter Visit Diagnoses Diagnosis Acute on chronic respiratory failure (CMS/HCC) (HCC)- Primary Chronic systolic congestive heart failure (CMS/HCC) (HCC) Mycobacterium avium infection (HCC) 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HCC) Type 2 diabetes mellitus (HCC) COPD with exacerbation (CMS/HCC) (HCC) Peripheral neuropathy Unspecified hereditary and idiopathic peripheral neuropathy History of pulmonary embolism Personal history of venous thrombosis and embolism CHF (congestive heart failure) (CMS/HCC) (HCC) Congestive heart failure, unspecified Abdominal pain Abdominal pain, unspecified site 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) History of esophagitis Severe protein-calorie malnutrition (CMS/HCC) (HCC) Other severe protein-calorie malnutrition Llamas catheter in place Other postprocedural status Hypocalcemia documented in this encounter Admitting Diagnoses Diagnosis Acute on chronic respiratory failure (CMS/HCC) (HCC) documented in this encounter Administered Medications Inactive Administered Medications - up to 3 most recent administrations Medication Order MAR Action Action Date Dose Rate Site acetaminophen (TYLENOL) tablet 650 mg 650 mg, oral, Every 4 hours PRN, 1st line for pain, Starting on Sat07/23/24 at 2322 acyclovir (ZOVIRAX) tablet 400 mg 400 mg, oral, Every 8 hours, First dose on Sat07/24/24 at 0000, Indications: Prophylaxis, MedicalIndications:Prophylaxis, Medical Given 07/28/2024 4:41 PM CDT 400 mg Given 07/28/2024 8:07 AM CDT 400 mg Given 07/28/2024 12:04 AM CDT 400 mg acyclovir (ZOVIRAX) tablet 400 mg 400 mg, oral, 3 times daily, First dose (after last modification) on Sat07/28/24 at 2100, Indications: Prophylaxis, MedicalIndications:Prophylaxis, Medical Given 08/02/2024 8:15 AM CDT 400 mg Given 08/01/2024 9:52 PM CDT 400 mg Given 08/01/2024 3:30 PM CDT 400 mg amikacin (AMIKIN) 700 mg in sodium chloride 0.9% 28 mL (25 mg/mL) IV syringe 700 mg, intravenous, at 28 mL/hr, Administer over 60 Minutes, 3 times weekly (Once per day on Saturday), First dose (after last modification) on Sat07/31/24 at 0900, Indications: Upper Respiratory/HEENT InfectionIndications:Upper Respiratory/HEENT Infection New Bag 07/31/2024 9:00 AM CDT 700 mg 28 mL/hr amikacin (AMIKIN) 900 mg in sodium chloride 0.9% 36 mL (25 mg/mL) IV syringe 900 mg (rounded from 885 mg = 15 mg/kg ? 59 kg), intravenous, at 36 mL/hr, Administer over 60 Minutes, 3 times weekly (Once per day on Saturday), First dose on Sat07/24/24 at 1700, Indications: Upper Respiratory/HEENT InfectionIndications:Upper Respiratory/HEENT Infection New Bag 07/29/2024 9:26 AM CDT 900 mg 36 mL/hr New Bag 07/27/2024 8:27 AM CDT 900 mg 36 mL/hr New Bag 07/24/2024 7:34 PM CDT 900 mg 36 mL/hr ascorbic acid (VITAMIN C) tablet 500 mg 500 mg, oral, Daily, First dose on Sat07/24/24 at 0900 Given 08/02/2024 8:16 AM CDT 500 mg Given 08/01/2024 8:27 AM CDT 500 mg Given 07/31/2024 8:53 AM CDT 500 mg atorvastatin (LIPITOR) tablet 40 mg 40 mg, oral, Daily, First dose on Sat07/24/24 at 0900 Given 08/02/2024 8:16 AM CDT 40 mg Given 08/01/2024 8:27 AM CDT 40 mg Given 07/31/2024 8:53 AM CDT 40 mg azithromycin (ZITHROMAX) tablet 250 mg 250 mg, oral, Daily, First dose on Sat07/24/24 at 0900, For 344 days, Indications: MycobacteriosisIndications:Mycobacteriosis Given 07/24/2024 8:51 AM CDT 2 50 mg azithromycin (ZITHROMAX) tablet 500 mg 500 mg, oral, Daily, First dose (after last modification) on Sat07/25/24 at 0900, For 343 doses, Indications: MycobacteriosisIndications:Mycobacteriosis Given 08/02/2024 8:15 AM CDT 5 00 mg Given 08/01/2024 8:27 AM CDT 500 mg Given 07/31/2024 8:53 AM CDT 500 mg carvediloL (COREG) tablet 3.125 mg 3.125 mg, oral, 2 times daily with meals (bkfst, dinner), First dose (after last modification) on Sat07/25/24 at 0800, Indications: HFrEF, On hold since Sat07/29/2024 at 0802 until manually unheldIndications:HFrEF Given 07/28/2024 5:34 PM CDT 3.125 mg Given 07/28/2024 8:06 AM CDT 3.125 mg Given 07/27/2024 5:14 PM CDT 3.125 mg cholecalciferol (VITAMIN D-3) capsule 2,000 Units 2,000 Units, oral, Every morning, First dose on Sat07/24/24 at 0900, Each capsule contains 1,000 units (25 mcg) of cholecalciferol. Given 08/02/2024 8:16 AM CDT 2,000 Units Given 08/01/2024 8:27 AM CDT 2,000 Units Given 07/31/2024 8:53 AM CDT 2,000 Units clopidogreL (PLAVIX) tablet 75 mg 75 mg, oral, Daily, First dose on Sat07/28/24 at 1730 Given 08/02/2024 8:15 AM CDT 75 mg Given 08/01/2024 8:28 AM CDT 75 mg Given 07/31/2024 8:53 AM CDT 75 mg cyanocobalamin (Vitamin B-12) tablet 1,000 mcg 1,000 mcg, oral, Every morning, First dose on Sat07/24/24 at 0900 Given 08/02/2024 8:15 AM CDT 1,000 mcg Given 08/01/2024 8:26 AM CDT 1,000 mcg Given 07/31/2024 8:53 AM CDT 1,000 mcg dextrose (D10W) 10% bolus 250 mL 250 mL, intravenous, at 1,000 mL/hr, Administer over 15 Minutes, Every 15 min PRN, blood glucose less than 70 mg/dL and UNABLE to swallow/take PO glucose/juice., Starting on Sat07/23/24 at 2301, After treatment for hypoglycemia, recheck BG followed by treatment every 15 minutes until the BG is greater than 100 mg/dL. Then check BG 1 hour post treatment. If BG is less than 100 mg/dL, repeat Q15 minute BG checks and treatment. Call MD for each episode of hypoglycemia., Indications: hypoglycemic disorderIndications:hypoglycemic disorder dextrose gel in packet 15 g 15 g, oral, Every 15 min PRN, low blood sugar, blood glucose less than 70 mg/dL, Starting on Sat07/23/24 at 2301, If patient is alert and able to eat/drink, give 15 gm glucose or one juice (4 fluid ounces) NOT ORANGE JUICE. After treatment for hypoglycemia, recheck BG followed by treatment every 15 minutes until the BG is greater than 100 mg/dL. Then check BG 1 hour post-treatment. If BG is less than 100 mg/dL, repeat Q15 minute BG checks and treatment. Call MD for each episode of hypoglycemia., Indications: hypoglycemic disorderIndications:hypoglycemic disorder ethambutoL (MYAMBUTOL) tablet 1,200 mg 1,200 mg, oral, Daily, First dose on Sat07/24/24 at 0900, For 344 days, Indications: MycobacteriosisIndications:Mycobacteriosis Given 08/02/2024 8:16 A M CDT 1,200 mg Given 08/01/2024 8:27 AM CDT 1,200 mg Given 07/31/2024 8:53 AM CDT 1,200 mg omyxqjrzwib-yamdgmzdo-putpgyro (TRELEGY ELLIPTA) 200-62.5-25 mcg inhaler 1 puff 1 puff, inhalation, Daily (legislative correspondent), First dose (after last modification) on Sat07/24/24 at 0900, Rinse mouth with water after use. Do not swallow. Given 07/24/2024 8:41 AM CDT 1 puff ibdpivuqatw-yvowxnkwg-zltnsakk (TRELEGY ELLIPTA) 200-62.5-25 mcg inhaler 1 puff 1 puff, inhalation, Daily, First dose (after last modification) on Sat07/25/24 at 0900, Rinse mouth with water after use. Do not swallow. Given 08/02/2024 8:20 AM CDT 1 puff Given 08/01/2024 8:28 AM CDT 1 puff Given 07/31/2024 8:56 AM CDT 1 puff furosemide (LASIX) tablet 20 mg 20 mg, oral, Daily, First dose on Sat07/25/24 at 1115, On hold since Sat07/29/2024 at 0802 until manually unheld Given 07/28/2024 8:07 AM CDT 20 mg Given 07/27/2024 8:09 AM CDT 20 mg Given 07/26/2024 8:39 AM CDT 20 mg gabapentin (NEURONTIN) capsule 300 mg 300 mg, oral, 4 times daily, First dose on Sat07/24/24 at 0800 Given 07/29/2024 12:52 PM CDT 300 mg Given 07/29/2024 9:10 AM CDT 300 mg Given 07/28/2024 9:05 PM CDT 300 mg gabapentin (NEURONTIN) capsule 400 mg 400 mg, oral, 3 times daily, First dose (after last modification) on Sat07/29/24 at 2100 Given 08/02/2024 8:16 AM CDT 400 mg Given 08/01/2024 9:51 PM CDT 400 mg Given 08/01/2024 3:29 PM CDT 400 mg glucagon injection 1 mg 1 mg, intramuscular, Every 30 min PRN, low blood sugar, blood glucose less than 70 mg/dL AND no IV access AND unable to take PO glucose/juice., Starting on Sat07/23/24 at 2301, After Glucagon is administered, position patient on side if possible to avoid aspiration. Obtain IV access. Follow glucagon treatment with glucose treatment or IV dextrose. After treatment for hypoglycemia, recheck BG followed by treatment every 15 minutes until the BG is greater than 100 mg/dL. Then check BG 1 hour post treatment. If BG is less than 100 mg/dL, repeat Q15 minute BG checks and treatment. Call MD for each episode of hypoglycemia. Reconstitute 1 mg vial with 1 mL SWFI. Use immediately following reconstitution. guaiFENesin ER (MUCINEX) extended release tablet 600 mg 600 mg, oral, 2 times daily, First dose on Sat07/24/24 at 0900, Do not crush, chew, cut, dissolve, open or otherwise manipulate tablet/capsule. Given 08/02/2024 8:16 AM CDT 600 mg Given 08/01/2024 9:51 PM CDT 600 mg Given 08/01/2024 8:28 AM CDT 600 mg heparin 10 unit/mL flush 50 Units 50 Units (5 mL), intra-catheter, Every 12 hours scheduled, First dose on Sat07/31/24 at 1100, Do not use with Groshong catheter., Indications: Maintain Patency of Indwelling Vascular CatheterIndications:Maintain Patency of Indwelling Vascular Catheter Given 07/31/2024 9:12 PM CDT 50 Units HYDROmorphone (DILAUDID) injection 0.5 mg 0.5 mg, intravenous, Administer over 2 Minutes, Every 4 hours PRN, 3rd line for pain, Starting on Sat07/23/24 at 2322 Given 07/24/2024 4:11 AM CDT 0.5 mg Given 07/24/2024 12:40 AM CDT 0.5 mg insulin glargine (LANTUS, SEMGLEE) 100 unit/mL injection 9 Units 9 Units (rounded from 8.85 Units = 0.15 Units/kg ? 59 kg), subcutaneous, Nightly, First dose on Sat07/27/24 at 2100, Do not hold if NPO. Do not mix with other insulins, Indications: Diabetes MellitusIndications:Diabetes Mellitus Given 07/31/2024 9:11 PM CDT 9 Units Left Upper Abdomen Given 07/30/2024 9:56 PM CDT 9 Units Le ft Upper Abdomen Given 07/29/2024 8:43 PM CDT 9 Units Le ft Lower Abdomen insulin lispro (HumaLOG, ADMELOG) 100 unit/mL injection 0-10 Units 0-10 Units, subcutaneous, 3 times daily with meals, First dose on Sat07/24/24 at 0800, Blood glucose mg/dL: 149 or less: No insulin 150-199: add 2 unit 200-249: add 4 units 250-299: add 6 units 300-349: add 8 units and notify physician for adjustment of insulin orders. 350-399: add 10 units and notify physician for adjustment of insulin orders. Over 400: Notify physician for adjustment of insulin orders. Do NOT hold for NPO Status, Indications: Diabetes MellitusIndications:Diabetes Mellitus Given 07/26/2024 12:16 PM CDT 4 Units Left Lower Abdomen Given 07/26/2024 8:39 AM CDT 8 Units Le ft Lower Abdomen Given 07/25/2024 5:36 PM CDT 6 Units Le ft Lower Abdomen insulin lispro (HumaLOG, ADMELOG) 100 unit/mL injection 0-4 Units 0-4 Units, subcutaneous, Nightly, First dose on Sat07/27/24 at 2100, Blood glucose mg/dL: 199 or less: No insulin 200-249: add 1 unit 250-299: add 2 units 300-349: add 3 units and notify physician for adjustment of insulin orders. 350-399: add 4 units and notify physician for adjustment of insulin orders. Over 400: Notify physician for adjustment of insulin orders. Do NOT hold for NPO Status, Indications: Diabetes MellitusIndications:Diabetes Mellitus Given 07/30/2024 9:56 PM CDT 1 Units Left Upper Abdomen insulin lispro (HumaLOG, ADMELOG) 100 unit/mL injection 0-5 Units 0-5 Units, subcutaneous, Nightly, First dose on Angy 07/23/24 at 2345, Blood glucose mg/dL: 149 or less: No insulin 150-199: add 1 unit 200-249: add 2 units 250-299: add 3 units 300-349: add 4 units and notify physician for adjustment of insulin orders. 350-399: add 5 units and notify physician for adjustment of insulin orders. Over 400: Notify physician for adjustment of insulin orders. Do NOT hold for NPO Status, Indications: Diabetes MellitusIndications:Diabetes Mellitus Given 07/26/2024 8:05 PM CDT 3 Units Left Lower Abdomen Given 07/25/2024 9:34 PM CDT 1 Units Ri ght Hand Given 07/24/2024 9:11 PM CDT 2 Units Le ft Lower Abdomen insulin lispro (HumaLOG, ADMELOG) 100 unit/mL injection 0-5 Units 0-5 Units, subcutaneous, 3 times daily with meals, First dose on Sat07/27/24 at 1800, Blood glucose mg/dL: 149 or less: No insulin 150-199: add 1 unit 200-249: add 2 units 250-299: add 3 units 300-349: add 4 units and notify physician for adjustment of insulin orders. 350-399: add 5 units and notify physician for adjustment of insulin orders. Over 400: Notify physician for adjustment of insulin orders. Do NOT hold for NPO Status, Indications: Diabetes MellitusIndications:Diabetes Mellitus Given 08/02/2024 8:20 AM CDT 2 Units Left Lower Abdomen Given 08/01/2024 5:15 PM CDT 2 Units Le ft Lower Abdomen Given 08/01/2024 8:29 AM CDT 2 Units Le ft Lower Abdomen insulin lispro (HumaLOG, ADMELOG) 100 unit/mL injection 10 Units 10 Units, subcutaneous, Once, On 07/27/24 at 1345, For 1 dose, Indications: HyperglycemiaIndications:Hyp erglycemia Given 07/27/2024 1:19 PM CDT 10 Units Left Lower Abdomen insulin lispro (HumaLOG, ADMELOG) 100 unit/mL injection 14 Units 14 Units, subcutaneous, Once, On Sat07/31/24 at 0845, For 1 dose, Indications: HyperglycemiaIndications:Hyp erglycemia Given 07/31/2024 8:56 AM CDT 14 Units Left Upper Arm insulin lispro (HumaLOG, ADMELOG) 100 unit/mL injection 3 Units 3 Units, subcutaneous, Once, On Sat07/24/24 at 0300, For 1 dose, Indications: HyperglycemiaIndications:Hyp erglycemia Given 07/24/2024 2:33 AM CDT 3 Units Left Upper Arm insulin lispro (HumaLOG, ADMELOG) 100 unit/mL injection 3 Units 3 Units (rounded from 2.95 Units = 0.05 Units/kg ? 59 kg), subcutaneous, 3 times daily with meals, First dose on Sat07/27/24 at 1800, If BG greater than or equal to 100 mg/dL, give dose with meals when tray arrives in the room. If BG less than 100 mg/dL or history of poor intake, give after meals. If patient eating less than 50% of meal, call MD for holding or reducing meal insulin dose. Hold prandial insulin if NPO, unable to eat, or if BG less than 70 mg/dL., Indications: Diabetes MellitusIndications:Diabetes Mellitus Given 08/02/2024 8:20 AM CDT 3 Units Left Lower Abdomen Given 08/01/2024 5:15 PM CDT 3 Units Le ft Lower Abdomen Given 08/01/2024 1:24 PM CDT 3 Units Le ft Lower Abdomen insulin regular (HumuLIN R, NovoLIN R) 100 unit/mL injection 5 Units 5 Units, intravenous, Once, On Sat07/27/24 at 0815, For 1 dose, Indications: HyperglycemiaIndications:Hyperglycemia Given 07/27/2024 8:16 AM CDT 5 Uni ts insulin regular (HumuLIN R, NovoLIN R) 100 unit/mL injection 7 Units 7 Units, intravenous, Once, On Sat07/27/24 at 1000, For 1 dose, Indications: HyperglycemiaIndications:Hyperglycemia Given 07/27/2024 9:45 AM CDT 7 Uni ts ipratropium-albuteroL (DUO-NEB) 0.5-2.5 mg/3 mL nebulizer solution 3 mL 3 mL, nebulization, Every 4 hours PRN (legislative correspondent), wheezing, shortness of breath, Starting on Angy 07/23/24 at 2331, Indications: Chronic Obstructive Pulmonary Disease with BronchospasmsIndications:Chronic Obstructive Pulmonary Disease with Bronchospasms Given 07/31/2024 6:18 AM CDT 3 mL Given 07/29/2024 2:12 PM CDT 3 mL Given 07/26/2024 10:05 PM CDT 3 mL isavuconazonium (CRESEMBA) capsule 372 mg 372 mg, oral, 3 times daily, First dose (after last modification) on Sat07/29/24 at 1230, For 6 doses, [facility] appropriate use criteria for isavuconazonium are limited to the following below options. It is recommended that therapy for infections outside of these indications is discussed with infectious diseases, if available. Aspergillosis prophylaxis, Indications: Prophylaxis, MedicalIndications:Prophylaxis, Medical Given 07/30/2024 9:54 PM CDT 372 mg Given 07/30/2024 5:31 PM CDT 372 mg Given 07/30/2024 7:44 AM CDT 372 mg isavuconazonium (CRESEMBA) capsule 372 mg 372 mg, oral, Daily, First dose (after last modification) on Sat07/31/24 at 0900, [facility] appropriate use criteria for isavuconazonium are limited to the following below options. It is recommended that therapy for infections outside of these indications is discussed with infectious diseases, if available. Aspergillosis prophylaxis, Indications: Prophylaxis, MedicalIndications:Prophylaxis, Medical Given 08/02/2024 8:16 AM CDT 372 mg Given 08/01/2024 8:26 AM CDT 372 mg Given 07/31/2024 8:53 AM CDT 372 mg lisinopriL (PRINIVIL,ZESTRIL) tablet 2.5 mg 2.5 mg, oral, Daily, First dose (after last modification) on Sat07/25/24 at 0900, Indications: chronic heart failureIndications:chronic heart failure Given 07/25/2024 8:57 AM CDT 2.5 mg losartan (COZAAR) tablet 12.5 mg 12.5 mg, oral, Daily, First dose on Sat07/28/24 at 1730, On hold since Sat07/29/2024 at 0802 until manually unheld Given 07/28/2024 5:35 PM CDT 12.5 mg metoprolol tartrate immediate release capsule 6.25 mg 6.25 mg, oral, 2 times daily, First dose on Sat07/30/24 at 0845 Given 08/02/2024 8:16 AM CDT 6.25 mg Given 08/01/2024 9:51 PM CDT 6.25 mg Given 08/01/2024 8:27 AM CDT 6.25 mg montelukast (SINGULAIR) tablet 10 mg 10 mg, oral, Nightly, First dose on Sat07/24/24 at 0000 Given 08/01/2024 9:52 PM CDT 10 mg Given 07/31/2024 9:11 PM CDT 10 mg Given 07/30/2024 9:54 PM CDT 10 mg mycophenolate mofetil (CELLCEPT) tablet 1,000 mg 1,000 mg, oral, 2 times daily, First dose on Sat07/24/24 at 0000, Do not crush, chew, cut, dissolve, open or otherwise manipulate tablet/capsule. Given 08/02/2024 8:16 AM CDT 1,000 mg Given 08/01/2024 9:51 PM CDT 1,000 mg Given 08/01/2024 8:27 AM CDT 1,000 mg nicotine (NICODERM CQ) 21 mg patch 24 hour 1 patch 1 patch, transdermal, Administer over 24 Hours, Daily, First dose on Sat07/24/24 at 0900, Apply a new patch every 24 hours to a clean, dry, hairless site on the upper arm or hip. Rotate site. Medication Applied 08/02/2024 8:16 AM CDT 1 patch Right Shoulder Medication Applied 08/01/2024 8:27 AM CDT 1 patch Left Shoulder Medication Applied 07/31/2024 8:56 AM CDT 1 patch Right Shoulder oxyCODONE (ROXICODONE) tablet 5 mg 5 mg, oral, Every 4 hours PRN, 2nd line for pain, Starting on Sat07/23/24 at 2322, Indications: PainIndications:Pain Given 08/02/2024 8:26 AM CDT 5 mg Given 08/02/2024 2:02 AM CDT 5 mg Given 08/01/2024 9:59 PM CDT [address] (PROTONIX) extended release tablet 40 mg 40 mg, oral, 2 times daily, First dose on Sat07/24/24 at 0000, Do not crush, chew, cut, dissolve, open or otherwise manipulate tablet/capsule., Indications: Treatment of Non-Bleeding Gastric DisorderIndications:Treatment of Non-Bleeding Gastric Disorder Given 08/02/2024 8:16 AM CDT 40 mg Given 08/01/2024 9:51 PM CDT 40 mg Given 08/01/2024 8:28 AM CDT 40 mg perflutren protein-a (OPTISON) 3 mL in sodium chloride 0.9% 8 mL syringe 1-8 mL, intravenous, Once in imaging, contrast, Starting on Sat07/24/24 at 1547, For 1 dose, Intra-Procedure (CV) Contrast Given 07/24/2024 5:01 PM CDT 2 mL polyvinyl alcohol-povidone (REFRESH CLASSIC) 1.4-0.6 % ophthalmic solution 2 drop 2 drop, each eye, 3 times daily PRN, dry eyes, Starting on 08/01/24 at 0300 Given 08/01/2024 3:13 AM CDT 2 drops ramelteon (ROZEREM) tablet 8 mg 8 mg, oral, Nightly PRN, sleep, Starting on Sat07/23/24 at 2303, Indications: Sleep-Onset InsomniaIndications:Sleep-Onset Insomnia Given 08/01/2024 9:59 PM CDT 8 mg Given 07/31/2024 9:11 PM CDT 8 mg Given 07/30/2024 9:54 PM CDT 8 mg rivaroxaban (XARELTO) tablet 20 mg 20 mg, oral, Daily, First dose on Sat07/24/24 at 0900, Nurse to discontinue heparin infusion order and associated bolus at first administration of rivaroxaban using 'order condition met' order source. If patient is eating, administer doses of 15 mg or greater with food. If patient is not eating, still administer dose unless instructed differently by provider., Indications: Venous ThrombosisIndications:Venous Thrombosis Given 08/02/2024 8:16 AM CDT 20 m g Given 07/31/2024 8:53 AM CDT 20 mg Given 07/30/2024 10:27 AM CDT 20 mg sodium chloride 0.9% flush 5-10 mL 5-10 mL, intra-catheter, Every 12 hours scheduled, First dose on Sat07/29/24 at 1100, Flush volume based on line type, size, and protocol. Given 07/31/2024 9:13 PM CDT 10 mL Given 07/30/2024 10:02 PM CDT 10 mL Given 07/30/2024 10:27 AM CDT 10 mL sodium chloride 0.9% flush 5-20 mL 5-20 mL, intra-catheter, As needed, line care, with each use, Starting on Sat07/29/24 at 1015, Flush volume based on line type, size, and protocol. sodium zirconium cyclosilicate (LOKELMA) packet 10 g 10 g, oral, Once, On Sat08/01/24 at 0330, For 1 dose, Adjust medication timing to ensure other oral medications are administered at least 2 hours before or 2 hours after sodium zirconium cyclosilicate. Empty packet(s) into a glass with 3 tablespoons (45 mL) of water. Stir and administer immediately. Repeat until no powder remains in glass., Indications: hyperkalemiaIndications:hyperkalemia Given 08/01/2024 3:13 AM CDT 10 g spironolactone (ALDACTONE) tablet 25 mg 25 mg, oral, Daily, First dose on Sat07/25/24 at 1115, On hold since Sat07/29/2024 at 0802 until manually unheld Given 07/28/2024 8:07 AM CDT 25 mg Given 07/27/2024 8:12 AM CDT 25 mg Given 07/26/2024 8:39 AM CDT 25 mg tacrolimus immediate-release capsule 0.5 mg 0.5 mg, oral, Every other day, First dose on Sat07/24/24 at 0900, Avoid grapefruit juice Given 08/01/2024 8:29 AM CDT 0 .5 mg Given 07/30/2024 7:45 AM CDT 0.5 mg Given 07/28/2024 8:06 AM CDT 0.5 mg voriCONAZOLE (VFEND) tablet 200 mg 200 mg, oral, 2 times daily, First dose on Sat07/24/24 at 0000, Indications: Prophylaxis, MedicalIndications:Prophylaxis, Medical Given 07/29/2024 9:10 AM CDT 200 mg Given 07/28/2024 9:05 PM CDT 200 mg Given 07/28/2024 8:06 AM CDT 200 mg documented in this encounter Discontinued Medications Medication Sig Discontinue Reason Start Date End Da te acetaminophen (TYLENOL) 500 mg tablet Take 2 tablets (1,000 mg total) by mouth 2 (two) times a day as needed for pain Therapy completed 07/23/2024 empagliflozin (JARDIANCE) 10 mg tabletIndications:hear t failure associated with type 2 diabetes mellitus Take 1 tablet (10 mg total) by mouth daily 07/28/2024 07/30/2024 dapagliflozin propanediol (Farxiga) 5 mg tabletIndications:hear t failure associated with type 2 diabetes mellitus Take 2 tablets (10 mg total) by mouth daily 07/28/2024 07/30/2024 isavuconazonium (CRESEMBA) 186 mg capsuleIndications:Pro phylaxis, Medical Take 2 capsules (372 mg total) by mouth daily Other 07/29/2024 07/30/2024 dapagliflozin propanediol (Farxiga) 5 mg tabletIndications:hear t failure associated with type 2 diabetes mellitus Take 2 tablets (10 mg total) by mouth daily Stop Taking at Discharge 07/30/2024 07/31/2024 ethambutoL (MYAMBUTOL) 400 mg tabletIndications:Myco bacteriosis Take 3 tablets (1,200 mg total) by mouth daily 07/07/2024 07/31/2024 empagliflozin (JARDIANCE) 10 mg tabletIndications:hear t failure associated with type 2 diabetes mellitus Take 1 tablet (10 mg total) by mouth daily 07/30/2024 07/31/2024 metoprolol tartrate (LOPRESSOR) 25 mg immediate release tablet Take 0.25 tablets (6.25 mg total) by mouth 2 (two) times a day Stop Taking at Discharge 07/31/2024 07/31/2024 oxyCODONE (ROXICODONE) 5 mg immediate release tabletIndications:Pain Take 1 tablet (5 mg total) by mouth every 4 (four) hours as needed for pain 07/17/2024 08/02/2024 azithromycin (ZITHROMAX) 500 mg tabletIndications:Myco bacteriosis Take 1 tablet (500 mg total) by mouth daily for 30 doses 08/01/2024 08/02/2024 ethambutoL (MYAMBUTOL) 400 mg tabletIndications:Myco bacteriosis Take 3 tablets (1,200 mg total) by mouth daily 07/31/2024 08/02/2024 clopidogreL (PLAVIX) 75 mg tablet Take 1 tablet (75 mg total) by mouth daily 08/01/2024 08/02/2024 isavuconazonium (CRESEMBA) 186 mg capsuleIndications:Pro phylaxis, Medical Take 2 capsules (372 mg total) by mouth daily 08/01/2024 08/02/2024 sodium chloride 0.9% injection Administer 5-10 mL into catheter daily For each lumen 07/31/2024 08/02/2024 heparin 10 unit/mL syringeIndications:Evelin ntain Patency of Indwelling Vascular Catheter Administer 5 mL (50 Units total) into catheter daily For each lumen 07/31/2024 08/02/2024 albuterol HFA (PROVENTIL HFA,VENTOLIN HFA,PROAIR HFA) 90 mcg/actuation inhalerIndications:Chr onic obstructive pulmonary disease, unspecified COPD type (HCC) Inhale 2 puffs every 6 (six) hours as needed for wheezing Stop Taking at Discharge 01/15/2024 08/02/2024 acyclovir (ZOVIRAX) 400 mg tablet Take 1 tablet (400 mg total) by mouth every 8 (eight) hours Stop Taking at Discharge 08/02/2024 sucralfate (CARAFATE) suspension 1 gram/10 mL Take 10 mL (1 g total) by mouth 4 (four) times a day (with meals and nightly) for 240 doses Stop Taking at Discharge 03/02/2024 08/02/2024 magnesium oxide (MAG-OX) 250 mg (150.8 mg elemental) tablet Take 1 tablet (250 mg total) by mouth every other day Stop Taking at Discharge 08/02/2024 zinc gluconate 50 mg tablet Take 1 tablet (50 mg total) by mouth daily Stop Taking at Discharge 08/02/2024 ascorbic acid 500 mg tablet,chewable Take 1 tablet/chew tab (500 mg total) by mouth daily Stop Taking at Discharge 08/02/2024 voriCONAZOLE (VFEND) 200 mg tabletIndications:Acut e myeloblastic leukemia, in remission (HCC) TAKE ONE TABLET BY MOUTH TWICE DAILY Stop Taking at Discharge 05/05/2024 08/02/2024 azithromycin (ZITHROMAX) 250 mg tablet Take 1 tablet (250 mg total) by mouth daily Stop Taking at Discharge 07/07/2024 08/02/2024 predniSONE (DELTASONE) 10 mg tablet Take 2 tablets (20 mg) by mouth 2 (two) times a day for 5 days Stop Taking at Discharge 07/19/2024 08/02/2024 documented as of this encounter Active and Recently Administered Medications Times are shown in CDT. Scheduled Medication Order 07/31/2024 08/01/2024 08/02/2024 acyclovir (ZOVIRAX) tablet 400 mg 400 mg, oral, 3 times daily, First dose (after last modification) on Sat07/28/24 at 2100, Indications: Prophylaxis, Medical 0853 (Given - Provider: Dora Karimi, BECKI)1601 (Given - Provider: Jayashree Garcia RN)2111 (Given - Provider: Esther Ayala RN) 0828 (Given - Provider: Anaid Burrell, BECKI)1530 (Given - Provider: Anaid Burrell, BECKI)2152 (Given - Provider: Laly Olivas, BECKI) 0815 (Given - Provider: Dora Toth, BECKI) amikacin (AMIKIN) 700 mg in sodium chloride 0.9% 28 mL (25 mg/mL) IV syringe 700 mg, intravenous, at 28 mL/hr, Administer over 60 Minutes, 3 times weekly (Once per day on Saturday), First dose (after last modification) on Sat07/31/24 at 0900, Indications: Upper Respiratory/HEENT Infection 0900 (New Bag - Provider: Dora Karimi RN)1000 (Stopped - Provider: Dora Karimi RN) ascorbic acid (VITAMIN C) tablet 500 mg 500 mg, oral, Daily, First dose on Sat07/24/24 at 0900 0853 (Given - Provider: Dora Karimi RN) 0827 (Given - Provider: Anaid Burrell, BECKI) 0816 (Given - Provider: Dora Toth RN) atorvastatin (LIPITOR) tablet 40 mg 40 mg, oral, Daily, First dose on Sat07/24/24 at 0900 0853 (Given - Provider: Dora Karimi RN) 0827 (Given - Provider: Anaid Burrell RN) 0816 (Given - Provider: Dora Toth RN) azithromycin (ZITHROMAX) tablet 500 mg 500 mg, oral, Daily, First dose (after last modification) on Sat07/25/24 at 0900, For 343 doses, Indications: Mycobacteriosis 0853 (Given - Provider: Dora Karimi RN) 0827 (Given - Provider: Anaid Burrell RN) 0815 (Given - Provider: Dora Toth RN) cholecalciferol (VITAMIN D-3) capsule 2,000 Units 2,000 Units, oral, Every morning, First dose on Sat07/24/24 at 0900, Each capsule contains 1,000 units (25 mcg) of cholecalciferol. 0853 (Given - Provider: Dora Karimi RN) 0827 (Given - Provider: Anaid Burrell RN) 0816 (Given - Provider: Dora Toth RN) clopidogreL (PLAVIX) tablet 75 mg 75 mg, oral, Daily, First dose on Sat07/28/24 at 1730 0853 (Given - Provider: Dora Karimi RN) 0828 (Given - Provider: Anaid Burrell RN) 0815 (Given - Provider: Dora Toth RN) cyanocobalamin (Vitamin B-12) tablet 1,000 mcg 1,000 mcg, oral, Every morning, First dose on Sat07/24/24 at 0900 0853 (Given - Provider: Dora Karimi RN) 0826 (Given - Provider: Anaid Burrell RN) 0815 (Given - Provider: Dora Toth RN) ethambutoL (MYAMBUTOL) tablet 1,200 mg 1,200 mg, oral, Daily, First dose on Sat07/24/24 at 0900, For 344 days, Indications: Mycobacteriosis 0853 (Given - Provider: Dora Karimi RN) 0827 (Given - Provider: Anaid Brurell RN) 0816 (Given - Provider: Dora Toth, BECKI) ydzsnlhideb-nnmfrbowp-gda anter (TRELEGY ELLIPTA) 200-62.5-25 mcg inhaler 1 puff 1 puff, inhalation, Daily, First dose (after last modification) on Sat07/25/24 at 0900, Rinse mouth with water after use. Do not swallow. 0856 (Given - Provider: Dora Karimi RN) 0828 (Given - Provider: Anaid Burrell RN) 0820 (Given - Provider: Dora Toth, BECKI) gabapentin (NEURONTIN) capsule 400 mg 400 mg, oral, 3 times daily, First dose (after last modification) on Sat07/29/24 at 2100 0853 (Given - Provider: Dora Karimi RN)1601 (Given - Provider: Jayashree Garcia RN)2110 (Given - Provider: Esther Ayala RN) 0827 (Given - Provider: Anaid Burrell RN)152 (Given - Provider: Anaid Burrell RN)215 (Given - Provider: Laly Olivas, BECKI) 0816 (Given - Provider: Dora Toth, BECKI) guaiFENesin ER (MUCINEX) extended release tablet 600 mg 600 mg, oral, 2 times daily, First dose on Sat07/24/24 at 0900, Do not crush, chew, cut, dissolve, open or otherwise manipulate tablet/capsule. 0853 (Given - Provider: Dora Karimi RN)211 (Given - Provider: Esther Ayala RN) 0828 (Given - Provider: Anaid Burrell RN)215 (Given - Provider: Laly Olivas, BECKI) 0816 (Given - Provider: Dora Toth, BECKI) heparin 10 unit/mL flush 50 Units 50 Units (5 mL), intra-catheter, Every 12 hours scheduled, First dose on Sat07/31/24 at 1100, Do not use with Groshong catheter., Indications: Maintain Patency of Indwelling Vascular Catheter 1147 (Lab Draw - Provider: Jayashree Garcia, BECKI)2111 (Given - Provider: Esther Ayala RN) 828 (Not Given - Provider: Anaid Burrell RN - Reason: Patient/family refused)2158 (Not Given - Provider: Laly Olivas RN - Reason: Other) 819 (Not Given - Provider: Dora Toth RN - Reason: Order parameters not met) insulin glargine (LANTUS, SEMGLEE) 100 unit/mL injection 9 Units 9 Units (rounded from 8.85 Units = 0.15 Units/kg ? 59 kg), subcutaneous, Nightly, First dose on Sat07/27/24 at 2100, Do not hold if NPO. Do not mix with other insulins, Indications: Diabetes Mellitus 2110 (Given - Provider: Esther Ayala RN) 2151 (Not Given - Provider: Laly Olivas RN - Reason: Patient/family refused) insulin lispro (HumaLOG, ADMELOG) 100 unit/mL injection 0-4 Units 0-4 Units, subcutaneous, Nightly, First dose on Sat07/27/24 at 2100, Blood glucose mg/dL: 199 or less: No insulin 200-249: add 1 unit 250-299: add 2 units 300-349: add 3 units and notify physician for adjustment of insulin orders. 350-399: add 4 units and notify physician for adjustment of insulin orders. Over 400: Notify physician for adjustment of insulin orders. Do NOT hold for NPO Status, Indications: Diabetes Mellitus 2125 (Not Given - Provider: Esther Ayala RN - Reason: Order parameters not met - Comment: BG 171) 2146 (Not Given - Provider: Laly Olivas RN - Reason: Order parameters not met) insulin lispro (HumaLOG, ADMELOG) 100 unit/mL injection 0-5 Units 0-5 Units, subcutaneous, 3 times daily with meals, First dose on Sat07/27/24 at 1800, Blood glucose mg/dL: 149 or less: No insulin 150-199: add 1 unit 200-249: add 2 units 250-299: add 3 units 300-349: add 4 units and notify physician for adjustment of insulin orders. 350-399: add 5 units and notify physician for adjustment of insulin orders. Over 400: Notify physician for adjustment of insulin orders. Do NOT hold for NPO Status, Indications: Diabetes Mellitus 0852 (Not Given - Provider: Dora Karimi RN - Reason: See Provider Order)1235 (Not Given - Provider: Jayashree Garcia RN - Reason: Order parameters not met)1841 (Given - Provider: Jayashree Garcia RN) 0829 (Given - Provider: Anaid Burrell RN)1324 (Not Given - Provider: Anaid Burrell RN - Reason: Order parameters not met)1715 (Given - Provider: Anaid Burrell RN) 0820 (Given - Provider: Dora Toth RN) insulin lispro (HumaLOG, ADMELOG) 100 unit/mL injection 14 Units (COMPLETED) 14 Units, subcutaneous, Once, On Sat07/31/24 at 0845, For 1 dose, Indications: Hyperglycemia 0856 (Given - Provider: Dora Karimi RN) insulin lispro (HumaLOG, ADMELOG) 100 unit/mL injection 3 Units 3 Units (rounded from 2.95 Units = 0.05 Units/kg ? 59 kg), subcutaneous, 3 times daily with meals, First dose on Sat07/27/24 at 1800, If BG greater than or equal to 100 mg/dL, give dose with meals when tray arrives in the room. If BG less than 100 mg/dL or history of poor intake, give after meals. If patient eating less than 50% of meal, call MD for holding or reducing meal insulin dose. Hold prandial insulin if NPO, unable to eat, or if BG less than 70 mg/dL., Indications: Diabetes Mellitus 0852 (Not Given - Provider: Dora Karimi RN - Reason: See Provider Order)1306 (Not Given - Provider: Jayashree Garcia RN - Reason: Patient/family refused)1841 (Given - Provider: Jayashree Garcia RN) 0829 (Given - Provider: Anaid Burrell RN)1324 (Given - Provider: Anaid Burrell RN)1715 (Given - Provider: Anaid Burrell RN) 0820 (Given - Provider: Dora Toth RN) isavuconazonium (CRESEMBA) capsule 372 mg 372 mg, oral, Daily, First dose (after last modification) on Sat07/31/24 at 0900, [facility] appropriate use criteria for isavuconazonium are limited to the following below options. It is recommended that therapy for infections outside of these indications is discussed with infectious diseases, if available. Aspergillosis prophylaxis, Indications: Prophylaxis, Medical 0853 (Given - Provider: Dora Karimi RN) 0826 (Given - Provider: Anaid Burrell RN) 0816 (Given - Provider: Dora Toth RN) metoprolol tartrate immediate release capsule 6.25 mg 6.25 mg, oral, 2 times daily, First dose on Sat07/30/24 at 0845 0853 (Given - Provider: Dora Karimi RN)2110 (Given - Provider: Esther Ayala RN) 826 (Given - Provider: Anaid Burrell RN)2150 (Given - Provider: Laly Olivas RN) 0816 (Given - Provider: Dora Toth RN) montelukast (SINGULAIR) tablet 10 mg 10 mg, oral, Nightly, First dose on Sat07/24/24 at 0000 2110 (Given - Provider: Esther Ayala RN) 2151 (Given - Provider: Laly Olivas RN) mycophenolate mofetil (CELLCEPT) tablet 1,000 mg 1,000 mg, oral, 2 times daily, First dose on Sat07/24/24 at 0000, Do not crush, chew, cut, dissolve, open or otherwise manipulate tablet/capsule. 0853 (Given - Provider: Dora Karimi RN)2110 (Given - Provider: Esther Ayala RN) 08 (Given - Provider: Anaid Burrell RN)2150 (Given - Provider: Laly Olivas RN) 0816 (Given - Provider: oDra Toth RN) nicotine (NICODERM CQ) 21 mg patch 24 hour 1 patch 1 patch, transdermal, Administer over 24 Hours, Daily, First dose on Sat07/24/24 at 0900, Apply a new patch every 24 hours to a clean, dry, hairless site on the upper arm or hip. Rotate site. 0853 (Medication Removed - Provider: Dora Karimi RN)0856 (Medication Applied - Provider: Dora Karimi RN) 0827 (Medication Applied - Provider: Anaid Burrell, BECKI)2202 (Patch Verify - Provider: Laly Olivas, BECKI) 0816 (Medication Applied - Provider: Dora Toth, BECKI)1136 (Due: Medication Removed - Provider: Automatic Discharge Provider - Comment: Time automatically adjusted from order being discontinued) pantoprazole DR (PROTONIX) extended release tablet 40 mg 40 mg, oral, 2 times daily, First dose on Sat07/24/24 at 0000, Do not crush, chew, cut, dissolve, open or otherwise manipulate tablet/capsule., Indications: Treatment of Non-Bleeding Gastric Disorder 0853 (Given - Provider: Dora Karimi RN)2111 (Given - Provider: Esther Ayala RN) 0828 (Given - Provider: Anaid Burrell, BECKI)2151 (Given - Provider: Laly Olivas, BECKI) 0816 (Given - Provider: Dora Toth, BECKI) rivaroxaban (XARELTO) tablet 20 mg 20 mg, oral, Daily, First dose on Sat07/24/24 at 0900, Nurse to discontinue heparin infusion order and associated bolus at first administration of rivaroxaban using 'order condition met' order source. If patient is eating, administer doses of 15 mg or greater with food. If patient is not eating, still administer dose unless instructed differently by provider., Indications: Venous Thrombosis 0853 (Given - Provider: Dora Karimi RN)1656 (Held by Provider - Provider: Francis Gordon MD - Reason: Change in Patient Status) 0900 (Dose Auto Held - Provider: Francis Gordon MD)1300 (Unheld by Provider - Provider: Francis Gordon MD) 0816 (Given - Provider: Dora Toth, BECKI) sodium chloride 0.9% flush 5-10 mL 5-10 mL, intra-catheter, Every 12 hours scheduled, First dose on Sat07/29/24 at 1100, Flush volume based on line type, size, and protocol. 0856 (Not Given - Provider: Dora Karimi RN - Reason: Order parameters not met)2112 (Given - Provider: Esther Ayala RN) 0829 (Not Given - Provider: Anaid Burrell RN - Reason: Patient/family refused)2158 (Not Given - Provider: Laly Olivas RN - Reason: Other) 0818 (Not Given - Provider: Dora Toth RN - Reason: Order parameters not met) sodium zirconium cyclosilicate (LOKELMA) packet 10 g (COMPLETED) 10 g, oral, Once, On Sat08/01/24 at 0330, For 1 dose, Adjust medication timing to ensure other oral medications are administered at least 2 hours before or 2 hours after sodium zirconium cyclosilicate. Empty packet(s) into a glass with 3 tablespoons (45 mL) of water. Stir and administer immediately. Repeat until no powder remains in glass., Indications: hyperkalemia 0313 (Given - Provider: Esther Ayala RN) tacrolimus immediate-release capsule 0.5 mg 0.5 mg, oral, Every other day, First dose on Sat07/24/24 at 0900, Avoid grapefruit juice 08 (Given - Provider: Anaid Burrell, BECKI) PRN Medication Order 07/31/2024 08/01/2024 08/02/2024 acetaminophen (TYLENOL) tablet 650 mg 650 mg, oral, Every 4 hours PRN, 1st line for pain, Starting on Sat07/23/24 at 2322 0120 (Canceled Entry - Provider: Laly Olivas, BECKI) dextrose (D10W) 10% bolus 250 mL(Linked Group 1) 250 mL, intravenous, at 1,000 mL/hr, Administer over 15 Minutes, Every 15 min PRN, blood glucose less than 70 mg/dL and UNABLE to swallow/take PO glucose/juice., Starting on Sat07/23/24 at 2301, After treatment for hypoglycemia, recheck BG followed by treatment every 15 minutes until the BG is greater than 100 mg/dL. Then check BG 1 hour post treatment. If BG is less than 100 mg/dL, repeat Q15 minute BG checks and treatment. Call MD for each episode of hypoglycemia., Indications: hypoglycemic disorder dextrose gel in packet 15 g(Linked Group 1) 15 g, oral, Every 15 min PRN, low blood sugar, blood glucose less than 70 mg/dL, Starting on Sat07/23/24 at 2301, If patient is alert and able to eat/drink, give 15 gm glucose or one juice (4 fluid ounces) NOT ORANGE JUICE. After treatment for hypoglycemia, recheck BG followed by treatment every 15 minutes until the BG is greater than 100 mg/dL. Then check BG 1 hour post-treatment. If BG is less than 100 mg/dL, repeat Q15 minute BG checks and treatment. Call MD for each episode of hypoglycemia., Indications: hypoglycemic disorder glucagon injection 1 mg 1 mg, intramuscular, Every 30 min PRN, low blood sugar, blood glucose less than 70 mg/dL AND no IV access AND unable to take PO glucose/juice., Starting on Sat07/23/24 at 2301, After Glucagon is administered, position patient on side if possible to avoid aspiration. Obtain IV access. Follow glucagon treatment with glucose treatment or IV dextrose. After treatment for hypoglycemia, recheck BG followed by treatment every 15 minutes until the BG is greater than 100 mg/dL. Then check BG 1 hour post treatment. If BG is less than 100 mg/dL, repeat Q15 minute BG checks and treatment. Call MD for each episode of hypoglycemia. Reconstitute 1 mg vial with 1 mL SWFI. Use immediately following reconstitution. HYDROmorphone (DILAUDID) injection 0.5 mg 0.5 mg, intravenous, Administer over 2 Minutes, Every 4 hours PRN, 3rd line for pain, Starting on Sat07/23/24 at 2322 ipratropium-albuteroL (DUO-NEB) 0.5-2.5 mg/3 mL nebulizer solution 3 mL 3 mL, nebulization, Every 4 hours PRN (legislative correspondent), wheezing, shortness of breath, Starting on Sat07/23/24 at 2331, Indications: Chronic Obstructive Pulmonary Disease with Bronchospasms 0618 (Given - Provider: Chad Oliveira, SHALLOT CLEANER) ondansetron (ZOFRAN) injection 4 mg 4 mg, intravenous, Administer over 2 Minutes, Every 6 hours PRN, nausea, vomiting, Starting on Sat07/23/24 at 2318 oxyCODONE (ROXICODONE) tablet 5 mg 5 mg, oral, Every 4 hours PRN, 2nd line for pain, Starting on Sat07/23/24 at 2322, Indications: Pain 1601 (Given - Provider: Jayashree Garcia, RN)2128 (Given - Provider: Esther Ayala RN) 020 (Given - Provider: Esther Ayala RN)2158 (Given - Provider: Laly Olivas, BECKI) 020 (Given - Provider: Laly Olivas, BECKI)0826 (Given - Provider: Dora Toth, BECKI) polyvinyl alcohol-povidone (REFRESH CLASSIC) 1.4-0.6 % ophthalmic solution 2 drop 2 drop, each eye, 3 times daily PRN, dry eyes, Starting on 08/01/24 at 0300 0313 (Given - Provider: Esther Ayala RN) ramelteon (ROZEREM) tablet 8 mg 8 mg, oral, Nightly PRN, sleep, Starting on Sat07/23/24 at 2303, Indications: Sleep-Onset Insomnia 2110 (Given - Provider: Esther Ayala RN) 2158 (Given - Provider: Laly Olivas, BECKI) sodium chloride 0.9% flush 5-20 mL 5-20 mL, intra-catheter, As needed, line care, with each use, Starting on Sat07/29/24 at 1015, Flush volume based on line type, size, and protocol. Linked Groups Order Group 1: dextrose gel in packet 15 gJump to med 15 g, oral, Every 15 min PRN, low blood sugar, blood glucose less than 70 mg/dL, Starting on Sat07/23/24 at 2301, If patient is alert and able to eat/drink, give 15 gm glucose or one juice (4 fluid ounces) NOT ORANGE JUICE. After treatment for hypoglycemia, recheck BG followed by treatment every 15 minutes until the BG is greater than 100 mg/dL. Then check BG 1 hour post-treatment. If BG is less than 100 mg/dL, repeat Q15 minute BG checks and treatment. Call MD for each episode of hypoglycemia., Indications: hypoglycemic disorder Or dextrose (D10W) 10% bolus 250 mLJump to med 250 mL, intravenous, at 1,000 mL/hr, Administer over 15 Minutes, Every 15 min PRN, blood glucose less than 70 mg/dL and UNABLE to swallow/take PO glucose/juice., Starting on Angy 07/23/24 at 2301, After treatment for hypoglycemia, recheck BG followed by treatment every 15 minutes until the BG is greater than 100 mg/dL. Then check BG 1 hour post treatment. If BG is less than 100 mg/dL, repeat Q15 minute BG checks and treatment. Call MD for each episode of hypoglycemia., Indications: hypoglycemic disorder documented in this encounter Orders Medications Ordered That Girma ht Not Have Been Administered Count Last Ordered Date First Ordered Date lisinopriL (PRINIVIL,ZESTRIL ) tablet 2.5 mg 2 07/30/2024 07/24/2024 isavuconazonium (CRESEMBA) capsule 372 mg 3 07/29/2024 lidocaine (PF) (XYLOCAINE) 1 0 mg/mL (1 %) preservative free injection 10-20 mg 1 07/29/2024 sodium chloride 0.9% flush 5-20 mL 1 2023 carvediloL (COREG) tablet 3.125 mg 1 2023 cefepime (MAXIPIME) 2,000 mg /20 mL in sterile water (premix) 2,000 mg 1 07/24/2024 acetaminophen (TYLENOL) tablet 650 mg 1 03/2024 dextrose (D10W) 10% bolus 250 mL 07/23/20 dextrose gel in packet 15 g 1 07/23/2024 nhveypzwcgw-ewkzpxyal-kdvcks er (TRELEGY ELLIPTA) 200-62.5-25 mcg inhaler 1 puff 1 07/23/2024 glucagon injection 1 mg 1 07/23/2024 ondansetron (ZOFRAN) injection 4 mg 1 07/23 Lab Orders Without Results Count Last Ordered D ate First Ordered Date PHOSPHORUS 1 08/02/2024 POCT GLUCOSE DEVICE 50 08/02/2024 07/24/20 Imaging Orders Without Results Count Last Order ed Date First Ordered Date PEP THERAPY/AIRWAY CLEARANCE 14 08/01/2024 07/24/2024 SPUTUM INDUCTION 1 07/23/2024 Diet Count Last Ordered Date First Orde red Date ADULT DISCHARGE DIET 2 08/02/2024 024 Nursing Count Last Ordered Date First Orde red Date DISCHARGE ACTIVITY 2 08/02/2024 DISCHARGE CALL PROVIDER 16 08/02/202407/19 DISCHARGE INSTRUCTIONS 2 08/02/202407/31 WEIGH PATIENT 1 07/23/2024 Consult Count Last Ordered Date First Orde red Date IP CONSULT TO VASCULAR ACCESS TEAM 1 2023 CONSULT TO CARDIO-ONCOLOGY 1 07/28/2024 IP CONSULT TO AUDIOLOGY 1 07/24/2024 CONSULT TO TRANSPLANT INFECTIOUS DISEASE 1 07/23/2024 Isolation Count Last Ordered Date First Orde red Date INITIATE CONTACT ISOLATION 1 07/23/2024 INITIATE DROPLET ISOLATION 1 07/23/2024 Admission Count Last Ordered Date First Orde red Date ADMIT TO INPATIENT 1 07/23/2024 Transfer Count Last Ordered Date First Orde red Date TRANSFER PATIENT TO NEW UNIT 1 07/24/2024 Discharge Count Last Ordered Date First Orde red Date DISCHARGE PATIENT 1 08/02/2024 CORE MEASURES Count Last Ordered Date First Ord ered Date REASON FOR NO VTE PROPHYLAXIS AT ADMISSION 1 07/23/2024 documented in this encounter Additional Health Concerns Infection Onset Date 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 07/23/2024 07/24/2024 07/24/2024 4:49 AM CDT documented as of this encounter Care Teams Career Services Coordinator Relationship Specialty Start Date End Date Kirt Lindsay DO PCP - General Internal Medicine 02/02/21 Josué Del Valle MD PhD Medical Oncologist/Case Managers Medical Oncology 08/26/19 Cal Carranza DO [address] [address] Marine Electrician Internal Medicine 06/12/23 Halie Khan MD [address] [facility] [address] [place] [address] Well Drill Operator Cable Tool Critical Care Med 06/12/23 Wilfred Kinsey MD [address] [facility] [address] [place] [address] Consulting Physician Gastroenterology 03/02/24 documented as of this encounter
--- OUTSIDE RECORDS SUMMARY | 2024-11-22 10:46 | XMS_ITS | Encounter Summary ---
Author Organization [facility] Address [address] [place] [address] Phone Care Team Providers Care Carding Doubler Name Role Phone Josué Del Valle MD PhD Unavailable [phone] Kirt Lindsay DO Primary Care Provider [phone] Cal Carranza DO Unavailable [phone] Halie Khan MD Unavailable [phone] Wilfred Kinsey MD Unavailable Reason for Visit * Reason Onset Date Comments [place]ANG ([place]) 07/21/2024 Encounter Details Date Type Department Care Team (Late st Contact Info) Description 07/21/2024 Telephone [facility] Endocrinology Metabolism and Lipid [address] [facility] Advanced Medicine 13th [place] [address] [place] [address] Bela Orellana, RN [place] ([place]) Social History Tobacco Use Types Packs/Day Years Used Date Smoking Tobacco: Some Days Cigarettes 0.5 40.4 Started: 1984 Smokeless Tobacco: Never Comments:pt states tried to quit; smoking 5 cigs/wk [facility] Utilities Answer Date Recorded In the past 12 months has th e electric, gas, oil, or water [employer] threatened to shut off services in your home? No 07/24/2024 Social Connection and Isolation Panel [NHANES] A nswer Date Recorded In a typical week, how many times do you talk on the phone with family, friends, or neighbors? Twice a week 07/24/2024 How often do you get together with friends or re latives? Once a week 07/24/2024 How often do you attend orthodox or quaker serv ices? 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 Faxed most recent chart notes from February 2023. * Telephone Encounter - Bela Orellana RN - 07/21/2024 2:56 PM CDT Images from the original note were not included. Received below fax, no chart notes within past 6 months to submit. 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 07/23/2024 07/24/2024 07/24/2024 4:49 AM CDT documented as of this encounter Care Teams Carding Doubler Relationship Specialty Start Date End Date Kirt Lindsay DO PCP - General Internal Medicine 02/02/21 Josué Del Valle MD PhD Medical Oncologist/Blacktop Spreader Medical Oncology 08/26/19 Cal Carranza DO [address] [place], [place] [id number] Mail Clerk Bills Internal Medicine 06/12/23 Halie Khan MD [address] [address] Galvanometer Assembler Critical Care Med 06/12/23 Wilfred Kinsey MD [address] [address] Consulting Physician Gastroenterology 03/02/24 documented as of this encounter
--- OUTSIDE RECORDS SUMMARY | 2024-11-22 10:46 | XMS_ITS | Encounter Summary ---
Author Organization [facility] Address [address] [place] [address] Phone Care Team Providers Care Strategic Sourcing Consultant Name Role Phone Josué Del Valle MD PhD Unavailable Kirt Lindsay DO Primary Care Provider [phone] Cal Carranza DO Unavailable [phone] Halie Khan MD Unavailable [phone] Wilfred Kinsey MD Unavailable Encounter Details Date Type Department Care Team (Late st Contact Info) Description 07/08/2024 Orders Only [facility] Bone Marrow Transplant [address] [facility] Advanced Medicine 7th Floor, [place] [address] Josué Del Valle MD PhD [address] DIV IM BONE MARROW TRANSPLANT[address] [place] [address] Acute myeloblastic leukemia, in remission (HCC) (Primary Dx) Social History Tobacco Use Types Packs/Day Years Used Date Smoking Tobacco: Some Days Cigarettes 0.5 40.4 Started: 1984 Smokeless Tobacco: Never Comments:pt states tried to quit [facility] Utilities Answer Date Recorded In [...] week 06/16/2024 How often do you attend alevism or baptism serv ices? Never 06/16/2024 Do you belong [...] any time in the past 12 m [facility], were you homeless or living in a alf (including now)? No 06/16/2024 Personal Safety Answer Date Recorded Have you ever been in or are you currently in a harmful physical or emotional relationship or is someone making you feel afraid or unsafe? 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 Gender Identity Not on file Sexual Orientation Not on file documented as of this encounter Plan of Treatment Not on file documented as of this encounter Visit Diagnoses Diagnosis Acute myeloblastic leukemia, in remission (HCC)- Primary documented in this encounter Orders Appointment Requests Count Last Ordered Date Fi rst Ordered Date [facility] CLINIC APPOINTMENT REQUEST 1 024 [facility] LAB APPOINTMENT 1 07/08/2024 documented in this encounter Additional Health Concerns Infection Onset Date 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 documented as of this encounter Care Teams Strategic Sourcing Consultant Relationship Specialty Start Date End Date Kirt Lindsay DO PCP - General Internal Medicine 02/02/21 Josué Del Valle MD PhD Medical Oncologist/Butadiene Converter Utility Operator Medical Oncology 08/26/19 Cal Carranza DO [address] [facility] [address] [place] [address] Automotive Painter Helper Internal Medicine 06/12/23 Halie Khan MD [address] [facility] [address] [place] [address] Mmd Unit Teacher Critical Care Med 06/12/23 Wilfred Kinsey MD [address] [address] Consulting Physician Gastroenterology 03/02/24 documented as of this encounter
--- OUTSIDE RECORDS SUMMARY | 2024-11-22 10:46 | XMS_ITS | Encounter Summary ---
Author Organization [facility] Address [address] [place] [address] Care Team Providers Care Flour Blender Helper Name Role Phone Josué Del Valle MD PhD Unavailable Kirt Lindsay DO Primary Care Provider [phone] Cal Carranza DO Unavailable Halie Khan MD Unavailable [phone] Wilfred Kinsey MD Unavailable Reason for Visit * Reason Comments Abdominal Pain * Auth/Cert (Routine) Specialty Diagnoses / Procedures Referred By Contac t Referred To Contact Diagnoses Gastroduodenitis Pulmonary nodules Acute pancreatitis without infection or necrosis, unspecified pancreatitis type Procedures NA Referral ID Status Reason Start Date Expiration Date Visits Re quested Visits Authorized [id number] 1 1 Encounter Details Date Type Department Care Team (Latest Contact Info) Description 07/14/2024 8:44 PM CDT - 07/17/2024 2:16 PM CDT Hospital Encounter [address] [address] James Bruno MD [address] [place] [address] [phone] Michael Mckeon MD [address] [facility] [place] [address] Acute pancreatitis without infection or necrosis, unspecified pancreatitis type (Primary Dx); Gastroduodenitis; Pulmonary nodules Discharge Disposition: Discharge to home or self care Social History Tobacco Use Types Packs/Day Years Used Date Smoking Tobacco: Some Days Cigarettes 0.5 40.4 Started: 1985 Smokeless Tobacco: Never Tobacco Cessation:Ready to Q uit: Not Asked; Counseling Given: Not Answered Comments:pt states tried to quit; smoking 5 cigs/wk [facility] Utilities Answer Date Recorded In the past 12 months has [employer], gas, oil, or water company threatened to [...] week 07/15/2024 How often do you attend adventism or roman catholic serv ices? Never 07/15/2024 Do you belong to any clubs o r organizations such as adventism groups, unions, fraternal or athletic groups, or [...] place to sleep or slept in a fci (including now)? No 03/30/2024 Housing Stability Vital Sign Answer [place] Recorded In the last 12 months, was t here a time when you were not able to pay the mortgage or rent on time? No 07/15/2024 In the past 12 months, how m any times have you moved where you were living? 0 07/15/2024 At any time in the past 12 m [facility], were you homeless or living in a fci (including now)? No 07/15/2024 Personal Safety Answer Date Recorded Have you ever been in or are you currently in a harmful physical or emotional relationship or is someone making you feel afraid or unsafe? Denies 06/15/2024 Sex and Gender Information Value Date Recorded Sex Assigned at Not on file Legal Sex Male 10:48 AM [employer] Gender Identity Not on file Sexual Orientation Not on file documented as of this encounter Last Filed Vital Signs Vital Sign Reading Time Taken Comments Blood Pressure 98/68 07/17/2024 11:22 AM CDT Pulse 93 07/17/2024 11:22 AM CDT Temperature 37.6 ??C (99.7 ??F) 07/17/2024 11:22 AM C DT Respiratory Rate 24 07/17/2024 11:22 AM CDT Oxygen Saturation 99% 07/17/2024 11:22 AM CDT Inhaled Oxygen Concentration - - Weight 61.4 kg (135 lb 6.4 oz) 07/17/2024 5:09 A M CDT Height 180.3 cm (5' 11 ) 07/15/2024 4:01 AM CDT Body Mass Index 18.88 07/15/2024 4:01 AM CDT documented in this encounter Discharge Summaries * Michael Mckeon MD - 07/17/2024 10:56 AM CDT Inpatient Discharge Summary Patient Name - Brady Jones Patient Age - 58 yrs Patient - [id number] CSN - [id number] Document Creation Date: 07/17/2024 Admitting Provider, MD: James Bruno MD Discharge Provider, MD: Micahel Mckeon MD Primary Care Physician at Discharge: Kirt Lindsay, Admission Date: 07/14/2024 Discharge Date/time: 07/17/2024 Admission Location: [facility] LOS - LOS: 2 days Hospital Problems/Diagnoses Principal Problem: Acute pancreatitis without infection or necrosis, unspecified pancreatitis type Active Problems: Type 2 diabetes mellitus (HCC) CHF (congestive heart failure) (CMS/HCC) (HCC) Tobacco abuse Abdominal pain History of leukemia COPD with Pulmonary emphysema (HCC) Moderate malnutrition (CMS/HCC) 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 Lipase 501, ETOH <10. Ca normal. TG 89. Trop 128 > 137 > 121 > 192 > 134. BNP 12k. CT AP w/ New peripancreatic fat stranding involving the head up to the mid body of the pancreas consistent with acute pancreatitis. Stable peripancreatic fluid collection at the tail of the pancreas. No suspicious pancreatic lesion or ductal dilatation. Abnormal wall thickening of the gastric pylorus and duodenum consistent with acute gastroduodenitis, likely reactive to the adjacent pancreatitis. No evidence of acute bowel obstruction. CT Chest Scattered coarse nodular opacities throughout the lower lobes have increased since 03/27/2024, favored to be infectious/inflammatory. The large cavitary right apex mass and scattered opacities in the left upper lobe are stable to decreased inextent. Pulmonary arteries are clear. #acute pancreatitis #hx of esophagitis and globus sensation s/p EGD x2 in 02/2024 - Treated with IV fluids and prn pain meds during admit. - Pain and nausea improved. Hungry and wanting to advance diet AM 07/16. Tolerating eggs, mash potatoes, green beans. Then had episode of emesis after being told he could likely go home soon and reported he felt the food possibly getting stuck in throat. Vomited then felt better. Speech recommends mechanical soft with ground meat. Observed overnight and tolerating po intake. Okay to discharge on 07/17. #hx of recent MAC #COPD - on azithromycin/ethambutol for MAC - follow up outpt w/ ID - ID here did not think patient had superimposed pna but pulm thought he may. Added augmentin to regimen for short course. - cont home oxygen as needed #hx of chronic GVHD - Continue MMF, tacro - OI PPx - acyclovir and voriconazole #hx of VTE - lovenox while here then can go back to home Xarelto on discharge Discharge Details Physical Exam at Discharge: Discharge Condition: stable Pulse: 97 Resp: 24 BP: 104/91 Temp: 36.4 ??C (97.5 ??F) Weight: 61.4 kg (135 lb 6.4 oz) Pertinent Exam Findings at Discharge: NAD, thin, frail, and chronically ill appearing. Breathing nonlabored. Nondistended. Discharge Disposition: Discharge to home or self care Code Status at Discharge: Full Code Allergies: Adhesive Discharge Medications: Your medication list START taking these medications Instructions Last Dose Given Next Dose Due amoxicillin-clavulanate 875-125 mg per tablet Commonly known as: AUGMENTIN 875 mg of amoxicillin, oral, 2 times daily ondansetron ODT 4 mg disintegrating tablet Commonly known as: ZOFRAN-ODT 4 mg, oral, Every 8 hours PRN oxyCODONE 5 mg immediate release tablet Commonly known as: ROXICODONE 5 mg, oral, Every 4 hours PRN CONTINUE taking these medications Instructions Last Dose Given Next Dose Due acetaminophen 500 mg tablet Commonly known as: TYLENOL 1,000 mg, oral, 2 times daily PRN acyclovir 400 mg tablet Commonly known as: ZOVIRAX 400 mg, oral, Every 8 hours albuterol HFA 90 mcg/actuation inhaler Commonly known as: PROVENTIL HFA,VENTOLIN HFA,PROAIR HFA 2 puffs, inhalation, Every 6 hours PRN albuterol 2.5 mg /3 mL (0.083 %) nebulizer solution 2.5 mg, nebulization, Every 6 hours PRN ascorbic acid 500 mg tablet,chewable Commonly known as: VITAMIN C 500 mg, oral, Daily atorvastatin 40 mg tablet Commonly known as: LIPITOR 40 mg, oral, Daily azithromycin 250 mg tablet Commonly known as: ZITHROMAX 250 mg, oral, Daily cholecalciferol 25 mcg (1,000 unit) tablet Commonly known as: VITAMIN D-3 2,000 Units, oral, Every morning cyanocobalamin 1,000 mcg tablet Commonly known as: Vitamin B-12 1,000 mcg, oral, Every morning ethambutoL 400 mg tablet Commonly known as: MYAMBUTOL 1,200 mg, oral, Daily FreeStyle Evaristo 2 [facility] Doctor's comments: Dx: , tests blood glucose 4 times daily, injects insulin 4 times daily Generic drug: flash glucose scanning reader Use to test blood glucose continuously FreeStyle Evaristo 2 Sensor kit Doctor's comments: Patient needs appointment for future refills Generic drug: flash glucose sensor Change sensor every 14 days gabapentin 300 mg capsule Commonly known as: NEURONTIN TAKE ONE CAPSULE BY MOUTH FOUR TIMES DAILY @ 5AU-[id number]-9PM guaiFENesin ER 600 mg 12 hr tablet Commonly known as: MUCINEX 600 mg, oral, 2 times daily magnesium oxide 250 mg (150.8 mg elemental) tablet Commonly known as: MAG-OX 250 mg, oral, Every other day montelukast 10 mg tablet Commonly known as: SINGULAIR 10 mg, oral, Nightly mycophenolate mofetil 500 mg tablet Commonly known as: CELLCEPT 1,000 mg, oral, 2 times daily nicotine 21 mg Commonly known as: NICODERM CQ 1 patch, transdermal, Daily omega-3 fatty acids 1 gram capsule Commonly known as: LOVAZA 1 g, oral, Daily oxygen 2 L/min, each nostril, Nightly, Nightly and PRN pantoprazole DR 40 mg EC tablet Commonly known as: PROTONIX 40 mg, oral, 2 times daily sodium chloride 3 % nebulizer solution 4 mL, nebulization, 2 times daily, Use albuterol in nebulizer first, then saline, then Aerobika sucralfate 100 mg/mL suspension Commonly known as: CARAFATE 1 g, oral, 4 times daily (with meals and nightly) tacrolimus 0.5 mg immediate-release capsule Doctor's comments: This prescription was filled on 07/03/2024. Any refills authorized will be placedon file. TAKE ONE CAPSULE BY MOUTH EVERY OTHER DAY Trelegy Ellipta 200-62.5-25 mcg inhaler Generic drug: gyaiaohlicg-cxilvmpcq-gyvvhhro 1 puff, inhalation, Daily voriCONAZOLE 200 mg tablet Commonly known as: VFEND 200 mg, oral, 2 times daily Xarelto 20 mg tablet Generic drug: rivaroxaban TAKE ONE TABLET BY MOUTH DAILY AT 9 AM zinc gluconate 50 mg tablet 50 mg, oral, Daily STOP taking these medications diphenhydrAMINE-acetaminophen 25-500 mg tablet Commonly known as: TYLENOL PM insulin glargine 100 unit/mL vial for injection Commonly known as: LANTUS, SEMGLEE insulin lispro 100 unit/mL pen for injection Commonly known as: HumaLOG, ADMELOG Where to Get Your Medications These medications were sent to [id number] - [place] - [address] [address] amoxicillin-clavulanate 875-125 mg per tablet ondansetron ODT 4 mg disintegrating tablet oxyCODONE 5 mg immediate release tablet pantoprazole DR 40 mg EC tablet Time Spent in Discharge Process: I have spent 36 minutes on discharge planning activities. Time spent was on Coordination of care, Follow up , Counselling with patient/family, discharge exam, and parent/patient education Test Results Pending at Discharge (If Blank, None Found): Pending Labs Order Current Status IgE In process Blood culture Blood Peripheral Preliminary result Blood culture Blood Peripheral Preliminary result Pneumonia PCR with aerobic culture and Gram stain Sputum Preliminary result Operative Procedures Performed (If Blank, None Found): Outpatient Follow-Up: Contact Information for Follow-ups [facility] Infectious Diseases Specialty: Infectious Diseases [address] [facility] 8th Floor, [address] [facility] [address] Next Steps: Schedule an appointment as soon as possible for a visit Kirt Lindsay DO Specialty: Internal Medicine Relationship: PCP - General [address] [place] [address] [facility] [address] Next Steps: Schedule an appointment as soon as possible for a visit Please schedule an appointment with the following provider(s): [facility] Infectious Diseases [facility] 8th Floor, [address] [facility] [phone] Schedule an appointment as soon as possible for a visit Kirt Lindsay DO [address] [place] [address] [place] [phone] Schedule an appointment as soon as possible for a visit ANCILLARY INFORMATION Other Procedures & Diagnostic Tests: CT Chest W Contrast Result Date: 07/14/2024 EXAM DESCRIPTION: CT CHEST W CONTRAST REASON FOR STUDY: CT abdomen pelvis evidence of new multiple bilateral pulmonary nodules mostly in tree-in-bud distribution and endobronchial filling defects likely mucous plugs or lesion; CT chest w/ contrast recommended; pt has hsitory of leukemia, COPD Pt reports epigastric pain that started at around 2 pm to day. Pt reports it feels like something is jabbing my stomach that is causing me to be nauseous.. pt reports pain is at 8/10 on pain scale. Pt alsohas a slightly productive cough, ct chest recommended on abd scan TECHNIQUE: CT scan of the chest performed with intravenous contrast using helical scanning technique with dynamic intravenous contrast injection. Reconstructed coronal and sagittal MPR images reviewed. All images stored on PACS. Automated exposure control was used as a dose optimization technique for this examination. CONTRAST TYPE/DOSE: 100mL of IOVERSOL 350 MG IODINE/ML INTRAVENOUS SYRINGE injected via intravenous COMPARISON: 03/27/2024 REFERENCE: Per ACR white paper recommendations, unless otherwise specified no follow-up imaging is recommended for incidental renal and adrenal lesions per consensus recommendations based onimaging criteria. Further lab evaluation could be pursued based on clinical findings. FINDINGS: LUNGS: Coarse cavitary process in the right lung apex shows no significant overall change since March. Smaller posterior coarse opacity in the left apex slightly decreased in size. The nodule on image 39/130 in the left upper lung shows no definite change. New scattered coarse nodular opacities are present throughout the left lower lobe and in the superior segment right lower lobe and dependent right lower lobe. Advanced background emphysema. Bronchiectasis. Trachea and major airways are grossly patent. No effusion. HEART/MEDIASTINUM/AIMEE: Heart size slightly small reflecting hyperinflation. Coronary artery calcifications/stents. Thoracic inlet unremarkable. UPPER ABDOMEN: Haziness around the pancreatic head reviewed separately. MUSCULOSKELETAL: Small healing left posterior 11th rib fracture appears new from the prior. CHEST WALL: Unremarkable. IMPRESSION: 1. Scattered coarse nodular opacities throughout the lower lobes have increased since 03/27/2024, favored to be infectious/inflammatory.2. The large cavitary right apex mass and scattered opacities in the left upper lobe are stable to decreased in extent. 3. Pulmonary arteries are clear. THIS IS AN ELECTRONICALLY VERIFIED FINAL REPORT 07/14/2024 11:24 PM - Electronically signed by Kaushik FERREIRA T: Report ID: [id number] Reading Location: [place] [address] CT Abdomen Pelvis W Contrast Result Date: 07/14/2024 EXAM DESCRIPTION: CT ABDOMEN PELVIS W CONTRAST REASON FOR STUDY: Epigastric pain, elevated lipase I woke up this morning and I had bad pain in my stomach. I started throwing up and now there is a severe pain in the top center of my stomach. Hx: leukemia TECHNIQUE: CT scan of the abdomen and pelvis performed with intravenous and without oral contrast using helical scanning technique with dynamicintravenous contrast injection. Reconstructed coronal and sagittal MPR images reviewed. All images stored on PACS. Automated exposure control was used as a dose optimization technique for this examination. CONTRAST TYPE/DOSE: 100mL of IOVERSOL 350 MG IODINE/ML INTRAVENOUS SYRINGE injected via intravenous COMPARISON: CT abdomen and pelvis 12/12/2021, outside hospital CT chest 05/28/2024 FINDINGS: LOWER CHEST: There are multiple new endobronchial filling defects which may represent mucous plugs or endobronchial lesions in the visualized left lower lobe (3/1-14). Multiple new bilateral pulmonarynodules mostly in tree-in-bud distribution visualized in the lower lobes, suspicious for multifocalinfectious process. New large irregular 2.4 x 1.4 cm nodule in the right lung base (3/17) and 1.4 x1.9 cm nodule in the left lung base raise the suspicion for possible metastatic disease. LIVER: Normal size. No identified cystic or solid masses. GALLBLADDER: Surgically absent. BILE DUCTS: No intrah epatic or extrahepatic ductal dilatation. SPLEEN: Normal size. No focal lesions. PANCREAS: There isdiffuse peripancreatic fat stranding predominantly in the mid body and head of the pancreas consistent with acute pancreatitis. Redemonstration of peripancreatic fluid collection at the tail, unchanged. No suspicious pancreatic lesion or ductal dilatation. Inflammatory changes extends into the adjacent duodenum and gastric pylorus. ADRENALS: Normal. KIDNEYS/URINARY TRACT: No identified significant cystic or solid masses. No visualized stones. No hydronephrosis or hydroureter. Symmetric enhancement. Urinary bladder is unremarkable. GI: Oral contrast traverses the bowel loops up to the descending colon. There is abnormal bowel wall thickening of the duodenum and gastric pylorus, consistent with acute gastroduodenitis, likely reactive to adjacent pancreatitis. No abnormal bowel dilatation tosuggest obstruction. Uncomplicated colonic diverticulosis. Normal appendix. PERITONEUM: No ascites or free air. RETROPERITONEUM: No mass or adenopathy. REPRODUCTIVE: No significant abnormality. VASCULATURE: Atherosclerotic disease in the aorta, aortic branches, and iliacs MUSCULOSKELETAL: Multilevel degenerative changes are present without fracture. No concerning lesions are present. OTHER: No other abnormality. IMPRESSION: New peripancreatic fat stranding involving the head up to the mid body of the pancreas consistent with acute pancreatitis. Stable peripancreatic fluid collection at the tail of the pancreas. No suspicious pancreatic lesion or ductal dilatation. Abnormal wall thickening of the gastric pylorus and duodenum consistent with acute gastroduodenitis, likely reactive to the adjacent pancreatitis. No evidence of acute bowel obstruction. Partial visualization of the chest demonstrates new multiple bilateral pulmonary nodules mostly in tree-in-bud distribution and endobronchial filling defects likely mucous plugs or lesion. This may represent multifocal infectious process. New largest nodule in the lung base measures up to 2.4 cm, raising suspicion for underlying lung malignancy. Recommend further evaluation with dedicated CT chest with contrast for better comparison with outside hospital CT or recommend PET-CT. THIS IS AN ELECTRONICALLY VERIFIED FINAL REPORT 07/14/2024 9:30 PM - Electronically signed by Mandy Ng M.D. FT T: Report ID: [id number] Reading Location: [place] [address] Recent Labs: Recent Labs Lab Units 07/17/24 0538 07/16/24 0653 07/15/24 0327 WBC K/cumm 8.4 15.3* 8.7 HEMOGLOBIN g/dL 9.1* 9.2* 9.8* HEMATOCRIT % 27.7* 28.5* 30.0* PLATELETS K/cumm 364 384 441* Recent Labs Lab Units 07/17/24 0538 07/16/24 0653 07/15/24 0327 WBC K/cumm 8.4 15.3* 8.7 HEMOGLOBIN g/dL 9.1* 9.2* 9.8* HEMATOCRIT % 27.7* 28.5* 30.0* PLATELETS K/cumm 364 384 441* NEUTROS PCT % 60.8 67.1 63.8 LYMPHS PCT % 28.4 23.0 27.3 MONOS PCT % 9.1 7.7 7.2 EOS PCT % 1.1 1.3 1.1 Recent Labs Lab Units 07/17/24 0727 07/17/24 0538 07/16/24 0747 07/16/24 0653 07/15/24 0431 07/15/24 0327 07/15/24 0020 07/14/24 1622 SODIUM mmol/L -- 136 -- 140 -- 137 -- 136 POTASSIUM PLASMA mmol/L -- 3.6 -- 3.9 -- 3.8 -- 3.9 CHLORIDE mmol/L -- 99 -- 101 -- 103 -- 97 CO2 mmol/L -- 30 -- 28 -- 25 -- 28 BUN SERUM mg/dL -- 8 -- 10 -- 11 -- 13 CREATININE mg/dL -- 0.77* -- 0.84 -- 0.62* -- 0.75* SEP-KRO-IWNHEGD mL/min/1.73 m2 -- >90 -- >90 -- >90 -- >90 GLUCOSE mg/dL -- 113 -- 95 -- 131 -- 155 POC GLUCOSE MONITOR mg/dL 113 -- < > -- < > -- < > -- CALCIUM mg/dL -- 8.2* -- 8.4* -- 8.7 -- 9.7 ALBUMIN g/dL -- 3.0* -- 2.7* -- -- -- 3.4* PHOSPHORUS PLASMA mg/dL -- -- -- -- -- 3.0 -- -- < > = values in this interval not displayed. Recent Labs Lab Units 07/17/24 0727 07/17/24 0538 07/17/24 0442 07/16/24 0747 07/16/24 0653 07/15/24 0431 07/15/24 0327 07/15/24 0020 07/14/24 1622 SODIUM mmol/L -- 136 -- -- 140 -- 137 -- 136 POTASSIUM PLASMA mmol/L -- 3.6 -- -- 3.9 -- 3.8 -- 3.9 CHLORIDE mmol/L -- 99 -- -- 101 -- 103 -- 97 CO2 mmol/L -- 30 -- -- 28 -- 25 -- 28 ANIONGAP mmol/L -- 7 -- -- 11 -- 9 -- 11 GLUCOSE mg/dL -- 113 -- -- 95 -- 131 -- 155 POC GLUCOSE MONITOR mg/dL 113 -- 110 < > -- < > -- < > -- BUN SERUM mg/dL -- 8 -- -- 10 -- 11 -- 13 CREATININE mg/dL -- 0.77* -- -- 0.84 -- 0.62* -- 0.75* CALCIUM mg/dL -- 8.2* -- -- 8.4* -- 8.7 -- 9.7 ALBUMIN g/dL -- 3.0* -- -- 2.7* -- -- -- 3.4* ALK PHOS Units/L -- 170* -- -- 164* -- -- -- 210* ALT Units/L -- 6* -- -- <5* -- -- -- 11 AST Units/L -- 23 -- -- 23 -- -- -- 20 BILIRUBIN TOTAL mg/dL -- 0.2 -- -- 0.2 -- -- -- 0.3 < > = values in this interval not displayed. Recent Labs Lab Units 07/17/24 0538 07/16/24 0653 07/14/24 1622 ALK PHOS Units/L 170* 164* 210* BILIRUBIN TOTAL mg/dL 0.2 0.2 0.3 BILIRUBIN DIRECT mg/dL <0.2 <0.2 -- TOTAL PROTEIN g/dL 6.6 6.3* 7.9 ALT Units/L 6* <5* 11 AST Units/L 23 23 20 Recent Labs Lab Units 07/17/24 0538 07/16/24 0653 07/15/24 0327 MAGNESIUM mg/dL 1.5 1.8 1.3* Lab Results Component Value Date GLUCOSE 113 07/17/2024 GLUCOSE 113 07/17/2024 GLUCOSE 110 07/17/2024 Implant: Implants Bone Titanium Maynor - Implanted (Left) Leg As of 11/22/2018 Status: Implanted Lens [employer] [id number].170 Acrysof Iq Natural Stableforce Acrysert 6mm 13mm 1 Piece Foldable - [id number] - [id number] - Implanted (Right) Lens Inventory item: [employer] Acrysof Iq Natural Stableforce Acrysert 6mm 13mm 1 Piece Foldable SN60WF.170 Model/Cat number: [id number] Serial number: [id number] Deployment Technician: [employer] Device identifier: [id number] Device identifier type: GS1 As of 05/12/2021 Status: Implanted [employer] [id number].170 Acrysof Iq Natural Stableforce Acrysert 6mm 13mm 1 Piece Foldable - [id number] - [id number] - Implanted (Left) Eye Inventory item: [employer] Acrysof Iq Natural Stableforce Acrysert 6mm 13mm 1 Piece Foldable SN60WF.170 Model/Cat number: [id number] Serial number: [id number] Deployment Technician: [employer] Lot number: 0 Device identifier: [id number] Device identifier type: GS1 As of 08/01/2021 Status: Implanted General Precautions (If Blank, None Found): Isolation Status: Contact Nutritional Status and in-house recommendations: Dietary Orders (From admission, onward) Start Ordered 07/16/24 1539 Adult Diet Restricted; Mechanical Soft with Ground Meat Diet effective now Comments: Please send extra gravies or sauces Question Answer Comment (MHB/MHE) Diet type Restricted Modified Consistency: Mechanical Soft with Ground Meat 07/16/24 1540 07/16/24 1100 Oral Nutrition Supplements (B/MHE) Select Supplement: Ensure High Protein - Vanilla, Ensure High Protein - Chocolate; Quantity (# of cans): 1 can All Meals Question Answer Comment (MHB/MHE) Select Supplement: Ensure High Protein - Vanilla (B/MHE) Select Supplement: Ensure High Protein - Chocolate Quantity (# of cans): 1 can 07/16/24 0830 07/15/24 2100 Bedtime snack At bedtime Comments: If bedtime BG is less than 100mg/dl, give patient a 15 gram carbohydrate snack. 07/15/24 0325 Anticoagulation Indication: INR: 06/22/2024: 1.86 (H) Warfarin Administrations (last 168 hours) None Oxygen Status: O2 Therapy for the past 12 hrs: O2 Therapy O2 Flow Rate (L/min) 07/17/24 0838 Supplemental oxygen 3 L/min 07/17/24 0727 Supplemental oxygen 3 L/min 07/17/24 0439 Supplemental oxygen 3 L/min 07/17/24 0353 Supplemental oxygen 2 L/min 07/17/24 0036 None (Room air) 3 L/min Wound Care Instructions Active LDAs (If Blank, None Found): Peripheral IV 07/14/24 20 G Right Antecubital (Active) Placement Date/Time: 07/14/24 1620 Type: Angiocath Size (Gauge): 20 G Location Orientation: Right Location: Antecubital Peripheral IV 07/16/24 22 G Anterior;Left Forearm (Active) Placement Date/Time: 07/16/24 1413 Type: Angiocath Length of Catheter: 2.25 in Size (Gauge): 22 G Location Orientation: Anterior;Left Location: Forearm Site Prep: Chlorhexidine Comfort Measures: Position of comfort Local Anesthetic: None Fela... Patient Emergency Contact: Primary Emergency Contact: Tyler Kaiser, Krishna Immunization Status at Discharge Immunization History Administered Date(s) Administered Influenza,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 COMPARISON: 03/27/2024 REFERENCE: Per ACR white paper recommendations, unless otherwise specified no fo llow-up imaging is recommended for incidental renal and adrenal lesions per consensus recommendations based on imaging criteria. Further lab evaluation could be pursued based on clinical findings. FINDINGS: LUNGS: Coarse cavitary process in the right lung apex shows no significant overall change since March. Smaller posterior coarse opacity in the left apex slightly decreased in size. The nodule onimage 39/130 in the left upper lung shows no definite change. New scattered coarse nodular opacities are present throughout the left lower lobe and in the superior segment right lower lobe and dependent right lower lobe. Advanced background emphysema. Bronchiectasis. Trachea and major airways are gr ossly patent. No effusion. HEART/MEDIASTINUM/AIMEE: Heart size slightly small reflecting hyperinflation. Coronary artery calcifications/stents. Thoracic inlet unremarkable. UPPER ABDOMEN: Haziness around the pancreatic head reviewed separately. MUSCULOSKELETAL: Small healing left posterior 11th rib fracture appears new from the prior. CHEST WALL: Unremarkable. IMPRESSION: 1. Scattered coarse nodular opacities throughout the lower lobes have increased since 03/27/2024, favored to be infectious/inflammatory. 2. The large cavitary right apex mass and scattered opacities in the left upper lobe arestable to decreased in extent. 3. Pulmonary arteries are clear. THIS IS AN ELECTRONICALLY VERIFIED F INAL REPORT 07/14/2024 11:24 PM - Electronically signed by Kaushik FERREIRA T: Report ID: [id number] Reading Location: [id number] CT Abdomen Pelvis W Contrast Result Date: 07/14/2024 Narrative: EXAM DESCRIPTION: CT ABDOMEN PELVIS W CONTRAST REASON FOR STUDY: Epigastric pain, elevated lipase I woke up this morning and I had bad pain in my stomach. I started throwing up and now there is a severe pain in the top center of my stomach. Hx: leukemia TECHNIQUE: CT scan of the abdomen and pelvis performed with intravenous and without oral contrast using helical scanning technique with dynamic intravenous contrast injection. Reconstructed coronal and sagittal MPR images reviewed.All images stored on PACS. Automated exposure control was used as a dose optimization technique forthis examination. CONTRAST TYPE/DOSE: 100mL of IOVERSOL 350 MG IODINE/ML INTRAVENOUS SYRINGE injected via intravenous COMPARISON: CT abdomen and pelvis 12/12/2021, outside hospital CT chest 05/28/2024 FINDINGS: LOWER CHEST: There are multiple new endobronchial filling defects which may represent mucous plugs or endobronchial lesions in the visualized left lower lobe (3/1-14). Multiple new bilateral pulmonary nodules mostly in tree-in-bud distribution visualized in the lower lobes, suspicious for multifocal infectious process. New large irregular 2.4 x 1.4 cm nodule in the right lung base (3/17) and 1.4 x 1.9 cm nodule in the left lung base raise the suspicion for possible metastatic disease. LIVER: Normal size. No identified cystic or solid masses. GALLBLADDER: Surgically absent. BILE DUCTS: No intrahepatic or extrahepatic ductal dilatation. SPLEEN: Normal size. No focal lesions. PANCREAS: There is diffuse peripancreatic fat stranding predominantly in the mid body and head of the pancreas consistent with acute pancreatitis. Redemonstration of peripancreatic fluid collection at the tail, unchanged. No suspicious pancreatic lesion or ductal dilatation. Inflammatory changes extends into the adjacent duodenum and gastric pylorus. ADRENALS: Normal. KIDNEYS/URINARY TRACT: No identified significant cystic or solid masses. No visualized stones. No hydronephrosis or hydroureter. Symmetric enhancement. Urinary bladder is unremarkable. GI: Oral contrast traverses the bowel loops up tothe descending colon. There is abnormal bowel wall thickening of the duodenum and gastric pylorus, consistent with acute gastroduodenitis, likely reactive to adjacent pancreatitis. No abnormal bowel dilatation to suggest obstruction. Uncomplicated colonic diverticulosis. Normal appendix. PERITONEUM: No ascites or free air. RETROPERITONEUM: No mass or adenopathy. REPRODUCTIVE: No significant abnormality. VASCULATURE: Atherosclerotic disease in the aorta, aortic branches, and iliacs MUSCULOSKELETAL: Multilevel degenerative changes are present without fracture. No concerning lesions are present.OTHER: No other abnormality. IMPRESSION: New peripancreatic fat stranding involving the head up to the mid body of the pancreas consistent with acute pancreatitis. Stable peripancreatic fluid collection at the tail of the pancreas. No suspicious pancreatic lesion or ductal dilatation. Abnormal wallthickening of the gastric pylorus and duodenum consistent with acute gastroduodenitis, likely reactive to the adjacent pancreatitis. No evidence of acute bowel obstruction. Partial visualization of the chest demonstrates new multiple bilateral pulmonary nodules mostly in tree-in-bud distribution and endobronchial filling defects likely mucous plugs or lesion. This may represent multifocal infectious process. New largest nodule in the lung base measures up to 2.4 cm, raising suspicion for underlying lung malignancy. Recommend further evaluation with dedicated CT chest with contrast for better comparison with outside hospital CT or recommend PET-CT. THIS IS AN ELECTRONICALLY VERIFIED FINAL REPORT 07/14/2024 9:30 PM - Electronically signed by Mandy Ng M.D. FT T: Report ID: [id number] Reading Location: [place] [address] XR Chest 1 View Result Date: 06/16/2024 Narrative: EXAMINATION: 1 view chest radiograph Impression: The current study is compared with the prior radiograph dated 06/15/2024. Increased lung volumes. There is large area of masslike consolidation with cavitation in the right upper lobe . This remains concerning either for a cavitary pneumonia including typical or atypical mycobacteria ora cavitary lung cancer. The cardiac mediastinal silhouette is unchanged. There is no pleural effusion or pneumothorax. Dictated by: Alfonso Hernandez M.D. The radiology attending physician has personallyreviewed this study, and had reviewed and/or edited this written report and agrees with it. Electronically signed by: Pearl Carvalho M.D. Assessment and Plan: Increased shortness breath, cough, fatigue and chest tightness secondary to COPD exacerbation and community-acquired pneumonia, continue Rocephin, Zithromax, and ethambutol, continue Symbicort twice daily, Spiriva Respimat, 2.5 mcg 2 puffs daily, albuterol 4 times a day, check CRP and pneumoniae byPCR. 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 Acute pancreatitis, continue pain management, monitor amylase and lipase. Allergic rhinitis, continue Singulair and Flonase, check IgE. Fifty-five pack-year history smoking, patient is still actively smoking, patient was counseled to quit smoking for 5 minutes, continue nicotine patch. CT scan of the chest was independently interpreted by me showed chronic upper lobe cavitary lesion and scarring with nodularity in both lower lobes has increased. Oxygen supplement keep saturation more than 92%, he is on 3 liters/minute of oxygen. Head of bed elevation, aspiration precaution, incentive spirometry, physical therapy, out of bed tochair, ambulation, pulmonary toilet, pep valve, DVT and stress ulcer prophylaxis. History of AML status post bone marrow transplant, MSSA bacteremia, treated in March of 2024. Chronic prophylaxis with voriconazole. Patient condition is guarded, case discussed with hospitalist. 07/16 -continue Zithromax, ethambutol, add Rocephin, day 1., Spiriva Respimat 2 puffs daily, Symbicort twice daily, albuterol 4 times a day, Singulair, Flonase, head of bed elevation, aspiration precaution, nicotine patch, incentive spirometry, physical therapy, out of bed to the chair, ambulation, pulmonary toilet, pep valve, DVT and stress ulcer prophylaxis, continue voriconazole, continue oxygen supplement ox saturation more than 92%, he is on 3 liter/minute of oxygen, wean as tolerated, continue nutritional supplement, continue pain management, patient condition is guarded, will repeat chest x-ray on the patient and CRP. Patient condition is guarded, case discussed with hospitalist, 07/17 -Rocephin is day 2., Zithromax ethambutol will continue, continue Spiriva Respimat 2 puffs daily, Symbicort 2 puffs twice a day, albuterol 4 times a day, pep valve, pulmonary toilet, Mucinex hypertonic saline, Singulair, Flonase, head of bed elevation, aspiration precaution, incentive spirometry, physical therapy, out of bed to chair, ambulation DVT stress continue acyclovir, voriconazole, continue oxygen supplement keep saturation 92% he is still on 3 liters/minute. Continue tacrolimus and CellCept. Continue pain management, continue melatonin, head of bed elevation, aspiration precaution, incentive spirometry, physical therapy, out of bed to the chair, ambulation, pulmonary toilet, pep valve, DVT and stress ulcer prophylaxis. Chest x-ray showed stable cavitary lesion in the right upper lobe, nodular infiltrate in both bases, hyperinflation bilaterally. Continue advancing diet as tolerated, Patient condition is guarded, case discussed with hospitalist. Rendering Provider & Department: Brenda Callahan MD This note was created in part with the assistance of [employer] voice recognition software. Mainframe Developer variances may occur. For patients or family members viewing this note through [employer]: This note was written as a communication tool between healthcare providers and may contain technical language, terminology and abbreviations that is difficult to interpret without advanced medical training. If you have questions or concerns regarding what is written in this note, please request to speak with the healthcare provider taking care of you or your family member. * Michael Mckeon MD - 07/16/2024 2:34 PM CDT Hospitalist Daily Progress Note Subjective Interval History: - advance diet as tolerated - continue IV fluids - prn pain meds - Hungry and wanting to advance diet this morning. Tolerating eggs, mash potatoes, green beans thismorning. Then had episode of emesis after being told he could likely go home soon and reported he felt the food possibly getting stuck in throat. Vomited then felt better. Speech recommends mechanical soft with ground meat. Objective Vitals: 24hr Min/Max: Temp Min: 36.3 ??C (97.3 ??F) Max: 37.2 ??C (99 ??F) Pulse Min: 93 Max: 103 BP Min: 91/59 Max: 113/61 Resp Min: 18 Max: 24 SpO2 Min: 98 % Max: 100 % Most Recent : Vitals: 07/16/24 1109 BP: 106/71 Pulse: 102 Resp: 24 Temp: 37 ??C (98.6 ??F) SpO2: 100% I/O last 2 completed shifts: In: 2240 [P.O.:1210; I.V.:1020; IV Piggyback:10] Out: 750 [Urine:750] I/O this shift: In: 480 [P.O.:480] Out: 250 [Urine:250] Gen: NAD HEENT: EOMI, PERRL, sclerae anicteric. Resp: nonlabored CV: RRR GI: ND Ext: No edema Neuro: A/Ox3, non-focal Lab/Radiology/Diagnostic Review: Laboratory review: Lab results in the last 24 hours: Recent Results (from the past 24 hour(s)) Pneumonia PCR with aerobic culture and Gram stain Sputum Collection Time: 07/15/24 4:00 PM Specimen: Sputum Result Value Ref Range Direct Specimen Exam Molecular Analysis: 10^6 copies/mL Klebsiella pneumoniae group Correlation of molecular analysis with final culture results is recommended. Direct Specimen Exam Stain: Few polymorphonuclear leukocytes seen. No squamous epithelial cells seen. Rare mixed bacterial oscar seen on Gram stain. Report Preliminary Report: Culture results pending. (.) Pneumonia PCR Sputum Collection Time: 07/15/24 4:00 PM Specimen: Sputum Result Value Ref Range C. pneumoniae DNA Not Detected Not Detected Legionella pneumophila DNA Not Detected Not Detected M. pneumoniae DNA Not Detected Not Detected Adenovirus DNA Not Detected Not Detected Coronavirus (229E, OC43, HKU1, NL63) RNA Not Detected Not Detected Metapneumovirus RNA Not Detected Not Detected Rhinovirus/Enterovirus RNA Not Detected Not Detected Influenza A RNA Not Detected Not Detected Influenza B RNA Not Detected Not Detected Parainfluenza virus (1-4) RNA Not Detected Not Detected RSV RNA Not Detected Not Detected POCT glucose Collection Time: 07/15/24 4:11 PM Result Value Ref Range Glucose, POC 119 70 - 199 mg/dL Glucose comment 1 Use This Result Glucose comment 2 RN/MD Notified POCT glucose Collection Time: 07/15/24 8:19 PM Result Value Ref Range Glucose, POC 90 70 - 199 mg/dL POCT glucose Collection Time: 07/16/24 12:28 AM Result Value Ref Range Glucose, POC 81 70 - 199 mg/dL POCT glucose Collection Time: 07/16/24 2:24 AM Result Value Ref Range Glucose, POC 85 70 - 199 mg/dL POCT glucose Collection Time: 07/16/24 2:57 AM Result Value Ref Range Glucose, POC 93 70 - 199 mg/dL POCT glucose Collection Time: 07/16/24 4:28 AM Result Value Ref Range Glucose, POC 122 70 - 199 mg/dL CBC with auto differential Collection Time: 07/16/24 6:53 AM Result Value Ref Range WBC 15.3 (H) 3.8 - 9.9 K/cumm Hgb 9.2 (L) 13.0 - 17.5 g/dL Hct 28.5 (L) 38.9 - 50.3 % Plt 384 150 - 400 K/cumm MPV 10.4 9.1 - 12.3 fL RBC 2.76 (L) 4.30 - 5.80 M/cumm MCV 103.3 (H) 81.3 - 96.4 fL MCH 33.3 27.1 - 33.3 pg MCHC 32.3 32.3 - 35.7 g/dL RDW CV 16.3 (H) 11.1 - 14.9 % RDW SD 59.7 (H) 35.7 - 48.1 fL NRBC abs 0.06 (H) 0.00 - 0.01 K/cumm Hepatic function panel Collection Time: 07/16/24 6:53 AM Result Value Ref Range Bilirubin, total 0.2 0.1 - 1.2 mg/dL Bilirubin, direct <0.2 0.1 - 0.3 mg/dL Protein, pl 6.3 (L) 6.5 - 8.5 g/dL Albumin 2.7 (L) 3.5 - 5.0 g/dL Alk phos 164 (H) 40 - 130 Units/L ALT <5 (L) 7 - 55 Units/L AST 23 10 - 50 Units/L Basic metabolic panel Collection Time: 07/16/24 6:53 AM Result Value Ref Range Sodium 140 135 - 145 mmol/L Potassium, pl 3.9 3.3 - 4.9 mmol/L Chloride 101 97 - 110 mmol/L CO2 28 22 - 32 mmol/L Anion gap 11 2 - 15 mmol/L BUN 10 6 - 25 mg/dL Creatinine 0.84 0.80 - 1.30 mg/dL Glucose 95 70 - 199 mg/dL Calcium 8.4 (L) 8.5 - 10.3 mg/dL Magnesium Collection Time: 07/16/24 6:53 AM Result Value Ref Range Magnesium 1.8 1.4 - 2.5 mg/dL Lipase Collection Time: 07/16/24 6:53 AM Result Value Ref Range Lipase 297 (H) 10 - 99 Units/L IgG Collection Time: 07/16/24 6:53 AM Result Value Ref Range Immunoglobulin G 1,526 700 - 1,600 mg/dL IgM Collection Time: 07/16/24 6:53 AM Result Value Ref Range Immunoglobulin M 125 40 - 230 mg/dL Differential, auto Collection Time: 07/16/24 6:53 AM Result Value Ref Range Neutrophil abs 10.3 (H) 1.5 - 6.5 K/cumm Imm gran abs 0.1 0.0 - 0.1 K/cumm Lymphocyte abs 3.5 (H) 0.8 - 3.3 K/cumm Monocyte abs 1.2 (H) 0.2 - 0.8 K/cumm Eosinophil abs 0.2 0.0 - 0.5 K/cumm Basophil abs 0.1 0.0 - 0.1 K/cumm Neutrophil pct 67.1 % Imm gran pct 0.5 % Lymphocyte pct 23.0 % Monocyte pct 7.7 % Eosinophil pct 1.3 % Basophil pct 0.4 % eGFR Collection Time: 07/16/24 6:53 AM Result Value Ref Range eGFR >90 >=60 mL/min/1.73 m2 POCT glucose Collection Time: 07/16/24 7:47 AM Result Value Ref Range Glucose, POC 86 70 - 199 mg/dL Glucose comment 1 RN/MD Notified Glucose comment 2 Use This Result POCT glucose Collection Time: 07/16/24 11:11 AM Result Value Ref Range Glucose, POC 131 70 - 199 mg/dL Glucose comment 1 Use This Result Glucose comment 2 RN/MD Notified Assessment and Plan 58y M with h/o AML, s/p allo SCT in 2008, chronic GVHD of lung, recent cavitary lung lesion hx on treatment w/ ID Dr Pinzon for non-TB mycobacterial disease M Av[facility] (on azithromycin/ethambutol for empiric coverage with follow up at end of July), COPD, prior PE on xarelto, chronic HFpEF, hx of esophagitis and globus sensation s/p EGD x2 in 02/2024 who presented on 07/15 for severe abd pain and vomiting. Lipase 501, ETOH <10. Ca normal. TG 89. Trop 128 > 137 > 121 > 192 > 134. BNP 12k. CT AP w/ New peripancreatic fat stranding involving the head up to the mid body of the pancreas consistent with acute pancreatitis. Stable peripancreatic fluid collection at the tail of the pancreas. No suspicious pancreatic lesion or ductal dilatation. Abnormal wall thickening of the gastric pylorus and duodenum consistent with acute gastroduodenitis, likely reactive to the adjacent pancreatitis. No evidence of acute bowel obstruction. CT Chest Scattered coarse nodular opacities throughout the lower lobes have increased since 03/27/2024, favored to be infectious/inflammatory. The large cavitary right apex mass and scattered opacities in the left upper lobe are stable to decreased inextent. Pulmonary arteries are clear. #acute pancreatitis #hx of esophagitis and globus sensation s/p EGD x2 in 02/2024 - advance diet as tolerated - continue IV fluids - prn pain meds - Hungry and wanting to advance diet this morning. Tolerating eggs, mash potatoes, green beans thismorning. Then had episode of emesis after being told he could likely go home soon and reported he felt the food possibly getting stuck in throat. Vomited then felt better. Speech recommends mechanical soft with ground meat. #hx of recent MAC - on azithromycin/ethambutol for MAC - follow up outpt w/ ID #hx of chronic GVHD - Continue MMF, tacro, check tac trough - OI PPx - acyclovir and voriconazole #hx of VTE - lovenox while here then can go back to home Xarelto on discharge My total encounter time on 07/16/2024 was 36 minutes which was spent in the activities documented inthe note. This includes time spent prior to the visit and after the visit in direct care of the patient. This time does not include time spent in any separately reportable services. * Osmar Orta MD - 07/16/2024 11:31 AM CDT Progress Note Infectious Diseases Chief complaint: Pulmonary MAC. Acute pancreatitis. AML with bone marrow transplant Subjective Slight improvement of abdominal pain. Minimal cough. Objective Vitals: 07/16/24 1109 BP: 106/71 Pulse: 102 Resp: 24 Temp: 37 ??C (98.6 ??F) SpO2: 100% Constitutional: Alert, oriented x3. In no distress. Eyes: Sclerae anicteric, no conjunctival erythema Lungs: Clear breath sounds, no crackles, no wheezes Heart: Regular rate and rhythm, no murmurs Abdomen: Bowel sounds present, soft, Some tenderness epigastric area no rebound or guarding. Skin: Warm and dry, No rashes Extremities: No edema Neuro: No motor deficit Psych: No anxiety Current Medications: Current Facility-Administered Medications Medication Dose Route Frequency Provider Last Rate Last Admin acyclovir (ZOVIRAX) capsule 400 mg 400 mg oral Q8H Michael Mckeon MD 400 mg at 07/16/24 0939 albuterol HFA (PROVENTIL HFA,VENTOLIN HFA,PROAIR HFA) 90 mcg/actuation inhaler 2 puff 2 puff inhalation Q6H PRN (RT) Rukhsana Collins NP 2 puff at 07/15/24 1742 azithromycin (ZITHROMAX) tablet 250 mg 250 mg oral Daily Michael Mckeon MD 250 mg at 07/16/24 0939 budesonide-formoteroL (SYMBICORT) 160-4.5 mcg/actuation inhaler 2 puff 2 puff inhalation BID (RT) Rukhsana Collins NP 2 puff at 07/16/24 0919 cyanocobalamin (Vitamin B-12) tablet 1,000 mcg 1,000 mcg oral QAM Michael Mckeon MD 1,000 mcg at 07/16/24 0939 dextrose (GLUTOSE) 40 % gel 15 g 15 g oral Q15 Min PRN Rukhsana Collins NP Or dextrose (D10W) 10% bolus 250 mL 250 mL intravenous Q15 Min PRN Rukhsana Collins, ARMEN enoxaparin (LOVENOX) syringe 60 mg 1 mg/kg subcutaneous Q12H [facility] Michael Mckeon MD 60 mg at 07/15/242032 ethambutoL (MYAMBUTOL) tablet 1,200 mg 1,200 mg oral Daily Michael Mckeon MD 1,200 mg at 07/16/2439 fluticasone propionate (FLONASE) 50 mcg/actuation nasal spray 1 spray 1 spray each nostril Daily Jaki Reynolds NP 1 spray at 07/15/24 120 gabapentin (NEURONTIN) capsule 300 mg 300 mg oral QID Michael Mckeon MD 300 mg at 939 glucagon injection 1 mg 1 mg intramuscular Q30 Min PRN Rukhsana Collins NP guaiFENesin (ROBITUSSIN) 20 mg/mL oral liquid 200 mg 200 mg oral Q4H PRN Jaki Reynolds NP HYDROmorphone (DILAUDID) injection 0.5 mg 0.5 mg intravenous Q4H PRN Michael Mckeon MD 0.5mg at 07/16/24 0348 insulin lispro (HumaLOG, ADMELOG) 100 unit/mL injection 0-5 Units 0-5 Units subcutaneous Q4H [facility] Rukhsana Collins NP ipratropium-albuteroL (DUO-NEB) 0.5-2.5 mg/3 mL nebulizer solution 3 mL 3 mL nebulization Q6H [facility] (RT) Michael Mckeon MD 3 mL at 07/16/24 09 Lactated Ringer's (LR) infusion 75 mL/hr intravenous Continuous Michael Mckeon MD 75 mL/hrat 07/16/24 0524 75 mL/hr at 07/16/24 0524 montelukast (SINGULAIR) tablet 10 mg 10 mg oral Nightly Michael Mckeon MD 10 mg at 07/15/242032 mycophenolate mofetil (CELLCEPT) tablet 1,000 mg 1,000 mg oral BID Michael Mckeon MD 1,000mg at 07/16/24938 nicotine (NICODERM CQ) 7 mg patch 24 hour 1 patch 1 patch transdermal Daily PRN KristenL. Collins NP ondansetron (ZOFRAN) injection 4 mg 4 mg intravenous Q12H PRN Rukhsana Collins NP oxyCODONE (ROXICODONE) tablet 5 mg 5 mg oral Q4H PRN Michael Mckeon MD 5 mg at 07/16/24 0949 pantoprazole (PROTONIX) 40 mg in sodium chloride 0.9% 10 mL IV Syringe 40 mg intravenous BID Rukhsana Collins NP 40 mg at 07/16/24 0937 sodium chloride (OCEAN) 0.65 % nasal spray 1 spray 1 spray each nostril BID PRN Jaki Reynolds NP sodium chloride 0.9% flush 0.5-20 mL 0.5-20 mL intra-catheter Q8H [facility] Rukhsana Collins NP 10mL at 07/16/24 0524 sodium chloride 0.9% flush 0.5-20 mL 0.5-20 mL intra-catheter PRN Rukhsana Collins NP tacrolimus immediate-release capsule 0.5 mg 0.5 mg oral Every other day Michael Mckeon MD 0.5 mg at 07/15/24 1031 [Held by Provider] tiotropium bromide (SPIRIVA RESPIMAT) 2.5 mcg/actuation inhaler 2 puff 2 puff inhalation Daily (RT) Rukhsana Collins NP 2 puff at 07/15/24 1057 voriCONAZOLE (VFEND) tablet 200 mg 200 mg oral BID Michael Mckeon MD 200 mg at 07/15/242032 Allergies Allergen Reactions Adhesive Redness burn Social History Tobacco Use Smoking status: Some [...] or 2 Frequency of Binge Drinking: Never WBC count 15.3. Creatinine of 0.8. Lipase of 297. Sputum PCR 10>6 copies per mL of Klebsiella pneumoniae grew cultures are pending. sputum PCR for respiratory panel nonreactive MRSA screening negative Blood cultures x2 sets day 2 no growth. Assessment/Plan Acute pancreatitis associated with abdominal pain and nausea and vomiting. Some improvement of abdominal pain with pancreatic enzymes trending down. Continue pain management with hydration. 2. Pulmonary MAC diagnosed approximately 2 months ago at [facility] after bronchoscopy. Patient was on azithromycin and ethambutol currently month 2. Currently restarted orally and tolerating. No nausea or vomiting. 3. History of AML with allogeneic bone marrow transplant in remission. Patient is currently on tacrolimus and mycophenolate. Patient is also on voriconazole prophylaxis. 4. History of MSSA bacteremia completed treatment in March of 2024. Repeat blood cultures are negative 5. Pulmonary nodules with large cavitary right apex mass with recent bronchoscopy at [facility]. Cytology from 06/16/2024 was negative for malignancy. 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 Osmar Orta MD [facility] [place] Infectious Disease [place] Office [phone] * Ketty Saxena, OT - 07/16/2024 10:08 AM CDT Occupational Therapy 07/16/24 1008 General Chart Reviewed Yes Session Type Evaluation OT Received On 07/16/24 Safe Environment Arm band checked;Patient found in supine;Session completed bedside;Gait belt utilized for all out of bed mobility Subjective Agreeable to Therapy Subjective Comment Pt stated, I use my easley for support in my house; sometimes I'm unsteady. Additional Pertinent History 58 yo male with PMHx of DM2, CHF, COPD, HLD, and DVT that presented tothe ED with c/o abdominal pain. Admitted for pancreatitis. Family/Caregiver Present No Occupational Therapy-Patient Goal [place] at [place] Current Functional Status OT Functional Mobility Pt is lying in bed upon OT arrival. Pt performs supine > sitting EOB indep'ly. Pt transfers sit>stand from bed with CGA for balance/safety. Pt performs functional mobility to/from bathroom and completes all aspects of toileting with CGA for balance/safety. MIN cues on hand placement and overall safety awareness. LOB occurs 2x with mobility. Recommend use of ww for support with mobility. OT Self Care Pt dons socks indep'ly while seated EOB. Pt completes toilet transfer and all aspects of toileting with CGA for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 signed by: Pearl Carvalho M.D. XR Chest 1 View Result Date: 06/15/2024 Narrative: EXAMINATION: 1 view chest radiograph Impression: The current study is compared with the prior radiograph dated 03/31/2024. Again seen are cavitary upper lobe predominant areas of consolidation. These involve both the right upper lobe and the left upper lobe. Involvement in the right upper lobe is much more extensive than in the left up per lobe. While there is no interval change from 03/31/2024, there is apparent worsening compared to earlier films from 02/22/2024 and 02/27/2024. In this patient who may be immunosuppressed, consider opportunistic infection including tuberculosis. The Critical results were discussed with Dr Grace . by Dr. Carvalho on 06/15/2024 at 2:00 PM Electronically signed by: Pearl Carvalho M.D. ED COURSE/MEDICAL DECISION MAKING Differential diagnosis included but not limited to cholecystitis, cholangitis, pancreatitis, colitis, GERD, gastritis, diverticulitis, appendicitis. Patient's medical records were reviewed. ED Course as of 07/15/24 0009 Time: 07/14 338 Comment: Hemoglobin 10.7. Baseline for patient. Platelets 473. Lipase 501. Troponin delta equivocal. Patient denies chest pain or shortness of breath. CT abdomen/pelvis evidence of pancreatitis. Patient denies history of pancreatitis. Denies alcohol use. Normal lipid panel. CT of abdomen reveals partial visualization of the chest with new multiple bilateral pulmonary nodules. CT chest was obtained to further evaluate. There is scattered coarse nodular opacities throughout the lower lobes which have increased since 03/27/2024 concerning for infectious/inflammatory process. The large cavitary right apex mass and scattered opacities in the left upper lobe are stable to decreased in extent. Low suspicion for acute infection patient does not have worsening cough, shortness of breath, chest pain, fever, leukocytosis. Patient re-evaluated. He does report slight improvement of pain from 9/10 to 7/10 after morphine. He is requesting more pain medication. IV Dilaudid ordered. Discussed all results with patient. Discussed inpatient versus outpatient management. Will admit for pancreatitis and pain control. By: Stan, Cameron Mike, PA Time: 07/15 8 Comment: Discussed patient case with Dr. Bruno who accepts patient for admission. By: Cameron Pierce PA Procedures FINAL IMPRESSION Acute pancreatitis without infection or necrosis, unspecified pancreatitis type Gastroduodenitis Pulmonary nodules DISPOSITION: Admit PATIENT INSTRUCTED TO FOLLOW UP No follow-up provider specified. DISCHARGE MEDICATIONS Your medication list CONTINUE taking these medications Instructions Last Dose Given Next Dose Due FreeStyle Evaristo 2 [facility] Doctor's comments: Dx: , tests blood glucose 4 times daily, injects insulin 4 times daily Generic drug: flash glucose scanning reader Use to test blood glucose continuously FreeStyle Evaristo 2 Sensor kit Doctor's comments: Patient needs appointment for future refills Generic drug: flash glucose sensor Change sensor every 14 days ASK your doctor about these medications Instructions Last Dose Given Next Dose Due acetaminophen 500 mg tablet Commonly known as: TYLENOL 1,000 mg, oral, 2 times daily PRN acyclovir 400 mg tablet Commonly known as: ZOVIRAX 400 mg, oral, Every 8 hours albuterol HFA 90 mcg/actuation inhaler Commonly known as: PROVENTIL HFA,VENTOLIN HFA,PROAIR HFA 2 puffs, inhalation, Every 6 hours PRN albuterol 2.5 mg /3 mL (0.083 %) nebulizer solution 2.5 mg, nebulization, Every 6 hours PRN ascorbic acid 500 mg tablet,chewable Commonly known as: VITAMIN C 500 mg, oral, Daily atorvastatin 40 mg tablet Commonly known as: LIPITOR 40 mg, oral, Daily azithromycin 250 mg tablet Commonly known as: ZITHROMAX 250 mg, oral, Daily cholecalciferol 25 mcg (1,000 unit) tablet Commonly known as: VITAMIN D-3 2,000 Units, oral, Every morning cyanocobalamin 1,000 mcg tablet Commonly known as: Vitamin B-12 1,000 mcg, oral, Every morning diphenhydrAMINE-acetaminophen 25-500 mg tablet Commonly known as: TYLENOL PM 2 tablets, oral, Nightly PRN ethambutoL 400 mg tablet Commonly known as: MYAMBUTOL 1,200 mg, oral, Daily gabapentin 300 mg capsule Commonly known as: NEURONTIN TAKE ONE CAPSULE BY MOUTH FOUR TIMES DAILY @ [id number] guaiFENesin ER 600 mg 12 hr tablet Commonly known as: MUCINEX 600 mg, oral, 2 times daily insulin glargine 100 unit/mL vial for injection Commonly known as: LANTUS, SEMGLEE 5 Units, subcutaneous, Nightly insulin lispro 100 unit/mL pen for injection Commonly known as: HumaLOG, ADMELOG 5-10 Units, subcutaneous, 3 times daily before meals, INJECT 5-10 UNITS TID WITH MEALS PLUS SLIDINGSCALE. TDD OF 35 UNITS. magnesium oxide 250 mg (150.8 mg elemental) tablet Commonly known as: MAG-OX 250 mg, oral, Every other day montelukast 10 mg tablet Commonly known as: SINGULAIR 10 mg, oral, Nightly mycophenolate mofetil 500 mg tablet Commonly known as: CELLCEPT 1,000 mg, oral, 2 times daily nicotine 21 mg Commonly known as: NICODERM CQ 1 patch, transdermal, Daily omega-3 fatty acids 1 gram capsule Commonly known as: LOVAZA 1 g, oral, Daily oxygen 2 L/min, each nostril, Nightly, Nightly and PRN pantoprazole DR 40 mg EC tablet Commonly known as: PROTONIX 40 mg, oral, 2 times daily sodium chloride 3 % nebulizer solution 4 mL, nebulization, 2 times daily, Use albuterol in nebulizer first, then saline, then Aerobika sucralfate 100 mg/mL suspension Commonly known as: CARAFATE 1 g, oral, 4 times daily (with meals and nightly) tacrolimus 0.5 mg immediate-release capsule Doctor's comments: This prescription was filled on 07/03/2024. Any refills authorized will be placedon file. TAKE ONE CAPSULE BY MOUTH EVERY OTHER DAY Trelegy Ellipta 200-62.5-25 mcg inhaler Generic drug: sikcfxuouqu-stnhyzriw-dgsrxuqp 1 puff, inhalation, Daily voriCONAZOLE 200 mg tablet Commonly known as: VFEND 200 mg, oral, 2 times daily Xarelto 20 mg tablet Generic drug: rivaroxaban TAKE ONE TABLET BY MOUTH DAILY AT 9 AM zinc gluconate 50 mg tablet 50 mg, oral, Daily This examination was transcribed using the [employer] voice recognition system without human carbon sequestration plant manager. In an effort to expedite patient care, this report has not been adjusted for typographical, grammatical, and syntax by a trained territory sales manager medical. Cameron Pierce PA 07/16/24 0144 Cosigned by Antonia Lennon DO at 07/18/2024 3:49 AM CDT Associated attestation - Antonia Lennon DO - 07/18/2024 3:49 AM CDT ED Attestation I did not see this patient. I was personally available for consultation in the ED for this patient if the Advanced Practice Provider (SAJI) needed any assistance. The SAJI evaluated the patient independently and completed their own examination, documentation, and disposition. * Yared Parker RN - 07/14/2024 4:03 PM CDT I woke up this morning and I had bad pain in my stomach. I started throwing up and now there is a severe pain in the top center of my stomach. A&OX4 documented in this encounter Miscellaneous Notes * Plan of Care - Dora Laws RN - 07/17/2024 11:43 AM CDT 07/17/24 1142 Discharge Summary Discharge Disposition Private residence Does Actual Level of Care Match Care Team Recommendation? Yes Post Acute Care Plan Type of Home Care Services personal care worker Home Care Services Name and Phone Number tyler/ room mate + care management specialist Discharge Additional Assistance Does the patient need discharge transport arranged? No Has discharge transport been arranged? Yes Details of Transportation tyler D/C Transport Anticipated Date 07/17/24 D/C Transport Anticipated Time 1900 Post Discharge Care Provider Post Discharge Care Plan DC Summary has been faxed to next level of care provider (see Follow Up Providers) [facility] to deliver o2 tank for trip home Dora Laws RN Case Manager 07/17/2024 11:43 AM * Provider Query - Michael Mckeon MD - 07/17/2024 9:31 AM CDT Please specify a diagnosis that reflects the patient???s nutritional status, and document in the medical record and on the form below. _x__ Moderate Malnutrition ___ Malnutrition, unable to determine severity ___ Other explanation of clinical findings, specify below Additional Provider Response: Clinical Indicators/Treatments: 58 yo male with medical hx of type 2 diabetes, CHF, COPD (wears 02 at HS), hyperlipidemia, and DVT that presented to the ED with complaints of abdominal pain. 07/15/24 RD Assessment: Please see excerpts below: Patient meets criteria for moderate chronic malnutrition, reference ASPEN guidelines. Present on Admission: Yes ASPEN MALNUTRITION ASSESSMENT: Date of completion: 07/15/24 ASPEN/AND Malnutrition Screening: Chronic illness or injury mild/moderate Subcutaneous Fat Loss Severity: Mild/Moderate Muscle Mass Loss Severity: Mild/Moderate Patient Meets Criteria for Moderate Malnutrition: Yes NUTRITION DIAGNOSIS: Nutrition Diagnosis 1: Protein-Calorie Malnutrition - Moderate Related to: Chronic illness/injury Evidenced by: BMI 17-18.4, Muscle loss, Subcutaneous fat loss, Patient interview, Physical finding INTERVENTION(S): Summary: Assess for nutrition changes, Education, nutrition, Initial assessment, NFPE, Medical foodsupplement, Encouragement Monitor for diet advancement. Recommend Mechanical Soft per patient preference. Will add chocolate or vanilla Ensure Plus High Protein with all meals when medically able References: Adult Malnutrition Screening Criteria Criteria for Moderate and Severe Malnutrition: Minimum of 2 of 6 characteristics recommended Characteristics Malnutrition in the Context of ACUTE Illness or Injury < 3 months Malnutrition in the Context of CHRONIC Illness or Injury > 3 months Malnutrition in the Context of Social or Environmental Circumstances Moderate Malnutrition Severe Malnutrition Moderate Malnutrition Severe Malnutrition Moderate Malnutrition Severe Malnutrition 1: Energy intake (as a % of estimated energy requirements) < 75% of estimated energy requirement for >7 days <= 50% of estimated energy requirement for >= 5 days < 75% of estimated energy requirement for >= 1 month <= 75% of estimated energy requirement for >= 1 month < 75% of estimated energy requirement for >= 3 months <= 50% of estimated energy requirement for >= 1 month 2: Weight loss (as a % of weight lost from baseline) 1-2% in 1 wk 5% in 1 mo 7.5% in 3 mo >2% in 1 wk >5% in 1 mo >7.5% in 3 mo 5% in 1 mo 7.5% in 3 mo 10% in 6 mo 20% in 1 yr >5% in 1 mo >7.5% in 3 mo >10% in 6 mo >20% in 1 yr 5% in 1 mo 7.5% in 3 mo 10% in 6 mo 20% in 1 yr >5% in 1 mo >7.5% in 3 mo >10% in 6 mo >20% in 1 yr Physical Findings of 3: Loss of body fat 4: Loss of muscle mass or 5: Fluid accumulation Mild Findings: ? sub q fat ? muscle ? fluid/edema Moderate Findings: ? sub q fat ? muscle ? fluid/edema Mild Findings: ? sub q fat ? muscle ? fluid/edema Severe Findings: ? sub q fat ? muscle ? fluid/edema Mild Findings: ? sub q fat ? muscle ? fluid/edema Severe Findings: ? sub q fat ? muscle ? fluid/edema 6: Reduced Assembler Gold Frame Strength n/a Measurably reduced per device standards n/a Measurably reduced per device standards n/a Measurably reduced per device standards Note: Mild Malnutrition has not been defined by ASPEN. Mild malnutrition is a subjective assessmentwith characteristics of malnutrition greater than ???none?? but less than ???moderate.?? Mild malnutrition could be defined as one characteristic outlined above with the established moderate or severe parameters. From the ICD-10-CM Coding Guidelines, use of terms such as likely, suspected, possible, or probable(associated with a specific diagnosis that is being evaluated, monitored, or treated as if it exists) are acceptable and can be coded in the inpatient setting when documented at the time of discharge. This documentation will become part of the patient???s medical record. Sincerely, Kat HIGHTOWER, RN * Plan of Care - Neil Lucas RN - 07/17/2024 5:20 AM CDT Goals: pain control Clinical Goals for the Shift: NPO, IVF, pain control Jail Patient Centered Goal for Treatment: d/c home Summary: Patient alert and oriented and resting comfortably in bed. Patient afebrile and on 3L NC. Patient up independently. Lovenox for VTE. Patient complains of pain. Medication given. Problem: Discharge Planning Goal: Understanding discharge needs will improve Outcome: Progressing Flowsheets (Taken 07/17/2024 0582) Understanding of discharge needs will improve: Discuss information regarding discharge instructions Problem: Lack of Knowledge Goal: Ability to [...] care needs will improve Outcome: Progressing Problem: Chronic Obstructive Pulmonary Disease (COPD) Goal: Patient's ability to manage health related needs with COPD will improve Outcome: Progressing Goal: Ability to implement measures to reduce episodes of fatigue will improve Outcome: Progressing * Plan of Care - Haritha Bryson RRT - 07/16/2024 9:42 AM CDT Problem: Chronic Obstructive Pulmonary Disease (COPD) Goal: Patient's ability to manage health related needs with COPD will improve Outcome: Progressing Goal: Ability to implement measures to reduce episodes of fatigue will improve Outcome: Progressing * Plan of Shannon - Neil Lucas RN - 07/16/2024 6:15 AM CDT Goals: monitor breathing, pain control Clinical Goals for the Shift: NPO, IVF, pain control Jail Patient Centered Goal for Treatment: d/c home Summary: Patient alert and oriented and resting comfortably in bed. Patient afebrile and on 3L NC .Patient up independently. IV fluids. Lovenox for VTE. Patient complains of pain. Medication given. Problem: Discharge Planning Goal: Understanding discharge needs will improve Outcome: Progressing Flowsheets (Taken 07/16/2024 0615) Understanding of discharge needs will improve: Discuss information regarding discharge instructions Problem: Lack of Knowledge Goal: Ability to [...] care needs will improve Outcome: Progressing Problem: Chronic Obstructive Pulmonary Disease (COPD) Goal: Patient's ability to manage health related needs with COPD will improve Outcome: Progressing Goal: Ability to implement measures to reduce episodes of fatigue will improve Outcome: Progressing * Plan of Care - Cha Burch RRT - 07/15/2024 9:00 PM CDT Problem: Chronic Obstructive Pulmonary Disease (COPD) Goal: Patient's ability to manage health related needs with COPD will improve Outcome: Progressing Goal: Ability to implement measures to reduce episodes of fatigue will improve Outcome: Progressing * Initial Assessments - Dora Laws RN - 07/15/2024 2:35 PM CDT CM Initial Assessment Interview Note Admission Source: ED from home Impression: pancreatitis, recent pulmonary MAC- pulm & ID following, hx AML Plan Includes: he will return home with his caregiver Tyler who assists with most of his care. Hehas o2 hs at home. Tyler reports she can transport on dc Primary Source of Transportation: Does the patient need discharge transport arranged?: No (07/15/24 1429) Health Insurance Coverage: [facility] Prescription Coverage: yes Pharmacy: [id number] - [place], [place] - [address] [place] [id number] [facility] [place] - [facility] [place] - [address] [facility] [address] [facility] [place] Primary Care Provider: Kirt Lindsay DO Prior to Admission: Functional Status: Moderate assist with ADLs Primary Caregiver: Private caregiver Support System: Other (Comment) (tyler/ care management specialist) Home Care Services: No Outpatient Services: No Durable Medical Equipment: Nebulizer, Oxygen, Shower chair Oxygen Detail: viet[place] home Living Arrangements: Friends Type of Residence: Private residence Steps in home?: Yes, Outside of home Number of steps outside: 5 steps (07/15/240) SDOH: Transportation: In the past 12 months, has lack of transportation kept you from medical appointments or from getting medications?: No In the past 12 months, has lack of transportation kept you from meetings, work, or from getting things needed for daily living?: No (07/15/241431) Financial Resource: How hard is it for you to pay for the very basics like food, housing, medical care, and heating?: Not very hard (07/15/241431) Housing: In the last 12 months, was there a time when you were not able to pay the mortgage or rent on time?: No In the past 12 months, how many times have you moved where you were living?: 0 At any time in the past 12 months, were you homeless or living in a fci (including now)?: No (07/15/241431) Utilities: No, (07/15/241431) Social Connections: In a typical week, how many times do you talk on the phone with family, friends, or neighbors?: Twice a week How often do you get together with friends or relatives?: Once a week How often do you attend adventism or roman catholic services?: Never Do you belong to any clubs or organizations such as adventism groups, unions, fraternal or athletic groups, or school groups?: Yes How often do you attend meetings of the clubs or organizations you belong to?: Never Are you , , , , never , or living with a partner?: (07/15/241431) Food Insecurity: Within the past 12 months, you worried that your food would run out before you got the money to buymore.: Never true Within the past 12 months, the food you bought just didn't last and you didn't have money to get more.: Never true (07/15/241431) Potential discharge needs include: Home Health: None (07/15/241428) Anticipated Level of Care: Anticipated discharge level of care: Private residence Pt/Family agrees with Anticipated Level of Care: Yes (07/15/241428) Patient expects to be Discharged to: Private residence, (07/15/241428) Dora Laws RN Case Manager 07/15/2024 2:37 PM * Significant Event - Michael Mckeon MD - 07/15/2024 1:18 PM CDT See H&P by Rukhsana Collins NP from same day. 58y M with h/o AML, s/p allo SCT in 2008, chronic GVHD of lung, recent cavitary lung lesion hx on treatment w/ ID Dr Pinzon for non-TB mycobacterial disease M Avium (on azithromycin/ethambutol for empiric coverage with follow up at end of July), COPD, prior PE on xarelto, chronic HFpEF who presented on 07/15 for severe abd pain and vomiting. Lipase 501, ETOH <10. Ca normal. TG 89. Trop 128> 137 > 121 > 192 > 134. BNP 12k. CT AP w/ New peripancreatic fat stranding involving the head up to the mid body of the pancreas consistent with acute pancreatitis. Stable peripancreaticfluid collection at the tail of the pancreas. No suspicious pancreatic lesion or ductal dilatation.Abnormal wall thickening of the gastric pylorus and duodenum consistent with acute gastroduodenitis, likely reactive to the adjacent pancreatitis. No evidence of acute bowel obstruction. CT Chest Scattered coarse nodular opacities throughout the lower lobes have increased since 03/27/2024, favored to be infectious/inflammatory. The large cavitary right apex mass and scattered opacities in the left upper lobe are stable to decreased in extent. Pulmonary arteries are clear. #acute pancreatitis - advance diet as tolerated - cont IV fluids - prn pain meds #hx of recent MAC - on azithromycin/ethambutol for MAC - follow up outpt w/ ID #hx of chronic GVHD - Continue MMF, tacro, check tac trough - OI PPx - acyclovir and voriconazole #hx of VTE - lovenox while here then can go back to home Xarelto on discharge * Plan of Care - Arleen Loving RN - 07/15/2024 12:54 PM CDT Goals: Clinical Goals for the Shift: NPO, IVF, pain control Jail Patient Centered Goal for Treatment: d/c home Summary: Problem: Discharge Planning Goal: Understanding discharge needs will improve Outcome: Progressing Problem: Lack of Knowledge Goal: [...] health care needs will improve Outcome: Progressing * Plan of Care - Matilde Olivares RN - 07/15/2024 5:46 AM CDT Goals: Summary:Pain improved with analgesia. Lungs coarse sounding. Blood sugars within normal limits. Will monitor documented in this encounter Plan of Treatment Not on file documented as of this encounter Procedures Procedure Name Priority Date/Time Associated Diagnosis Comments POCT GLUCOSE DEVICE Routine 07/17/2024 1 1:25 AM CDT IGE Routine 07/17/2024 10:36 AM CDT POCT GLUCOSE DEVICE Routine 07/17/2024 7 :27 AM CDT XR CHEST 1 VIEW IP Routine 07/17/2024 5:51 AM CDT EGFR Routine 07/17/2024 5:38 AM CDT DIFFERENTIAL AUTO Routine 07/17/2024 5:3 8 AM CDT PRO B-TYPE NATRIURETIC PEPTIDE Routine 07/17/2024 5:38 AM CDT CBC WITH AUTO DIFFERENTIAL Routine 07/17/2024 5:38 AM CDT ERYTHROCYTE SEDIMENTATION RATE Routine 07/17/2024 5:38 AM CDT MAGNESIUM Routine 07/17/2024 5:38 AM CDT LIPASE Routine 07/17/2024 5:38 AM CDT HEPATIC FUNCTION PANEL Routine 07/17/2024 5:38 AM CDT BASIC METABOLIC PANEL Routine 07/17/2024 5:38 AM CDT POCT GLUCOSE DEVICE Routine 07/17/2024 4 :42 AM CDT POCT GLUCOSE DEVICE Routine 07/17/2024 1 2:41 AM CDT POCT GLUCOSE DEVICE Routine 07/16/2024 8 :02 PM CDT POCT GLUCOSE DEVICE Routine 07/16/2024 4 :20 PM CDT POCT GLUCOSE DEVICE Routine 07/16/2024 1 1:11 AM CDT POCT GLUCOSE DEVICE Routine 07/16/2024 7 :47 AM CDT EGFR Routine 07/16/2024 6:53 AM CDT DIFFERENTIAL AUTO Routine 07/16/2024 6:5 3 AM CDT CBC WITH AUTO DIFFERENTIAL Routine 07/16/2024 6:53 AM CDT MAGNESIUM Routine 07/16/2024 6:53 AM CDT LIPASE Routine 07/16/2024 6:53 AM CDT IGM Routine 07/16/2024 6:53 AM CDT IGG Routine 07/16/2024 6:53 AM CDT HEPATIC FUNCTION PANEL Routine 07/16/2024 6:53 AM CDT BASIC METABOLIC PANEL Routine 07/16/2024 6:53 AM CDT POCT GLUCOSE DEVICE Routine 07/16/2024 4 :28 AM CDT POCT GLUCOSE DEVICE Routine 07/16/2024 2 :57 AM CDT POCT GLUCOSE DEVICE Routine 07/16/2024 2 :24 AM CDT POCT GLUCOSE DEVICE Routine 07/16/2024 1 2:28 AM CDT POCT GLUCOSE DEVICE Routine 07/15/2024 8 :19 PM CDT POCT GLUCOSE DEVICE Routine 07/15/2024 4 :11 PM CDT PNEUMONIA PCR Routine 07/15/2024 4:00 PM CDT PNEUMONIA PCR WITH AEROBIC CULTURE AND GRAM STAIN Routine 07/15/2024 4:00 PM CDT ERYTHROCYTE SEDIMENTATION RATE Routine 07/15/2024 12:35 PM CDT CRP (ACUTE PHASE) Routine 07/15/2024 12: 35 PM CDT MRSA ONLY (STAPHYLOCOCCUS AUREUS) PCR Routine 07/15/2024 12:09 PM CDT TROPONIN T HIGH-SENSITIVITY Timed 07/15/2024 11:33 AM CDT POCT GLUCOSE DEVICE Routine 07/15/2024 1 0:36 AM CDT PRO B-TYPE NATRIURETIC PEPTIDE Routine 07/15/2024 9:55 AM CDT POCT GLUCOSE DEVICE Routine 07/15/2024 7 :26 AM CDT POCT GLUCOSE DEVICE Routine 07/15/2024 4 :31 AM CDT TROPONIN T HIGH-SENSITIVITY Routine 07/15/2024 3:27 AM CDT SEPSIS LACTATE WITH REFLEX Timed 07/15/2024 3:27 AM CDT EGFR Routine 07/15/2024 3:27 AM CDT DIFFERENTIAL AUTO Routine 07/15/2024 3:2 7 AM CDT PRO B-TYPE NATRIURETIC PEPTIDE Routine 07/15/2024 3:27 AM CDT CBC WITH AUTO DIFFERENTIAL Routine 07/15/2024 3:27 AM CDT PHOSPHORUS Routine 07/15/2024 3:27 AM CDT MAGNESIUM Routine 07/15/2024 3:27 AM CDT LIPASE Routine 07/15/2024 3:27 AM CDT BASIC METABOLIC PANEL Routine 07/15/2024 3:27 AM CDT POCT GLUCOSE DEVICE Routine 07/15/2024 1 2:20 AM CDT URINALYSIS AND REFLEX TO MICROSCOPIC AND CULTURE STAT 07/14/2024 11:34 PM CDT URINALYSIS, MICROSCOPIC ONLY STAT 07/14/2024 11:34 PM CDT PTH STAT 07/14/2024 11:30 PM CDT BLOOD CULTURE STAT 07/14/2024 10:53 PM CDT TROPONIN T HIGH-SENSITIVITY 6-HOUR Timed 07/14/2024 10:50 PM CDT SEPSIS LACTATE WITH REFLEX STAT 07/14/2024 10:50 PM CDT BLOOD CULTURE STAT 07/14/2024 10:[address] CHEST W CONTRAST ED 07/14/2024 1 0:[address] ABDOMEN PELVIS W CONTRAST ED 07/14/2024 8:49 PM CDT TROPONIN T HIGH-SENSITIVITY 2-HOUR Timed 07/14/2024 6:22 PM CDT LIPID PANEL Add-On 07/14/2024 6:22 PM CDT ECG 12-LEAD Routine 07/14/2024 4:24 PM CDT TROPONIN T HIGH-SENSITIVITY SERIES (BASELINE, 2HR, 4HR, 6HR) STAT 07/14/2024 4:22 PM CDT EGFR STAT 07/14/2024 4:22 PM CDT DIFFERENTIAL AUTO STAT 07/14/2024 4:2 2 PM CDT CBC WITH AUTO DIFFERENTIAL STAT 07/14/2024 4:22 PM CDT LIPASE STAT 07/14/2024 4:22 PM CDT ETHANOL STAT 07/14/2024 4:22 PM CDT COMPREHENSIVE METABOLIC PANEL STAT 07/14/2024 4:22 PM CDT documented in this encounter Results * POCT glucose (07/17/2024 11:25 AM CDT) [facility] Glucose, POC 182 70 - 199 mg/dL Glucose comment 1 Use This Result [facility] Glucose comment 2 RN/MD Notified [facility] Blood 07/17/2024 11:2 5 AM CDT 07/17/2024 11:25 AM CDT Michael Mckeon MD LAB POCT ORDERABLES - D EVICE Final Result [place] [address] [facility] [place] [address] * IgE (07/17/2024 10:36 AM CDT) [facility] IgE 3 <=100 IUnits/mL Blood 07/17/2024 10:3 6 AM CDT 07/17/2024 10:49 AM CDT us Brenda Callahan MD LAB BLOOD ORDERABLES Final Result [place] [address] [facility] [employer] [place] [address] * POCT glucose (07/17/2024 7:27 AM CDT) Glucose, POC 113 70 - 199 mg/dL Glucose comment 1 Use This Result [facility] Glucose comment 2 RN/MD Notified [facility] Blood 07/17/2024 7:27 AM CDT 07/17/2024 7:27 AM CDT us Michael Mckeon MD LAB POCT ORDERABLES - D EVICE Final Result [facility] [address] [facility] Department [place] [address] * XR Chest 1 View (07/17/2024 5:51 AM CDT) Anatomical Region Laterality Modality Body, Chest N/A Computed Radiogr aphy 07/17/2024 6:54 AM CDT Narrative 07/17/2024 6:56 AM CDT EXAM DESCRIPTION: XR CHEST 1 VIEW REASON FOR STUDY: Shortness of breath ?? 58y M with h/o AML, s/p allo SCT in 2008, chronic GVHD of lung, recent cavitary lung lesion hx on treatment w/ ID Dr Pinzon for non-TB mycobacterial disease M Avium (on azithromycin/ethambutol for empiric coverage with follow up at end of July), ?? COPD, prior PE on xarelto, chronic HFpEF, hx of esophagitis and globus sensation s/p EGD x2 in 02/2024 who presented on 07/15 for severe abd pain and vomiting. ?? Admitted 07/15/24 ?? TECHNIQUE: Single frontal ??radiographic view(s) of the chest. COMPARISON: 07/14/2024 FINDINGS: The heart size is stable. ??The pulmonary vasculature and mediastinum are grossly stable. ??There is no definite evidence of a pneumothorax. ??There is a grossly stable cavitary consolidation in the right lung apex. ??There is redemonstration of additional patchy airspace opacities in the left lung and right lung base, which are overall similar to the prior study. ??There is no definite evidence of a pleural effusion. The osseous structures are acutely grossly stable. IMPRESSION: Grossly stable cavitary consolidation in the right lung apex. Redemonstration of additional patchy airspace opacities in the left lung and right lung base, which are overall similar to the prior study. THIS IS AN ELECTRONICALLY VERIFIED FINAL REPORT 07/17/2024 6:56 AM - Electronically signed by ??Aron Mock D.O. PS D: ??07/17/2024 6:56 AM T: Report ID: [id number] Reading Location: ??[id number] Procedure Note Aron Mock, DO - 07/17/2024 EXAM DESCRIPTION: XR CHEST 1 VIEW REASON FOR STUDY: Shortness of breath 58y M with h/o AML, s/p allo SCT in 2008, chronic GVHD of lung, recent cavitary lung lesion hx on treatment w/ ID Dr Pinzon for non-TBmycobacterial disease M Avium (on azithromycin/ethambutol for empiric coverage withfollow up at end of July), COPD, prior PE on xarelto, chronic HFpEF, hx of esophagitis and globus sensation s/p EGD x2 in 02/2024 who presented on07/15 for severe abd pain and vomiting. Admitted 07/15/24 TECHNIQUE: Single frontal radiographic view(s) of the chest. COMPARISON: 07/14/2024 FINDINGS: The heart size is stable. The pulmonary vasculature andmediastinum are grossly stable. There is no definite evidence of a pneumothorax.There is a grossly stable cavitary consolidation in the right lung apex. Thereis redemonstration of additional patchy airspace opacities in the left lungand right lung base, which are overall similar to the prior study. There isno definite evidence of a pleural effusion. The osseous structures are acutely grossly stable. IMPRESSION: Grossly stable cavitary consolidation in the right lung apex. Redemonstration of additional patchy airspace opacities in the left lungand right lung base, which are overall similar to the prior study. THIS IS AN ELECTRONICALLY VERIFIED FINAL REPORT 07/17/2024 6:56 AM - Electronically signed by Aron Mock D.O. PS T: Report ID: [id number] Reading Location: [id number] us Brenda Callahan MD IMG XR PROCEDURES Final Res ult * eGFR (07/17/2024 5:38 AM CDT) Pathologist [facility] eGFR >90 >=60 mL/min/1. 73 m2 Comment: [...] interpretive data was last reviewed 2021. Blood 07/17/2024 5:38 AM CDT 07/17/2024 6:19 AM CDT us Michael Mckeon MD LAB BLOOD ORDERABLES Fi nal Result [facility] [address] [employer] [facility] Department [place] [address] * Differential, auto (07/17/2024 5:38 AM CDT) Pathologist [facility] Neutrophil abs 5.1 1.5 - 6.5 K/cumm Imm gran abs 0.0 0.0 - 0.1 K/cumm [facility] Lymphocyte abs 2.4 0.8 - 3.3 K/cumm [facility] Monocyte abs 0.8 0.2 - 0.8 K/cumm [facility] Eosinophil abs 0.1 0.0 - 0.5 K/cumm [facility] Basophil abs 0.0 0.0 - 0.1 K/cumm [facility] Neutrophil pct 60.8 % [facility] Comment: Interpretive Data Percent cell count reference ranges are not reported, since discordance with absolute values may lead to misinterpretation of CBC data. Current Interpretive Data was last revised on 2018. Imm gran pct 0.4 % [facility] Comment: Interpretive Data Percent cell count reference ranges are not reported, since discordance with absolute values may lead to misinterpretation of CBC data. Current Interpretive Data was last revised on 2018. Lymphocyte pct 28.4 % [facility] Comment: Interpretive Data Percent cell count reference ranges are not reported, since discordance with absolute values may lead to misinterpretation of CBC data. Current Interpretive Data was last revised on 2018. Monocyte pct 9.1 % [facility] Comment: Interpretive Data Percent cell count reference ranges are not reported, since discordance with absolute values may lead to misinterpretation of CBC data. Current Interpretive Data was last revised on 2018. Eosinophil pct 1.1 % [facility] Comment: Interpretive Data Percent cell count reference ranges are not reported, since discordance with absolute values may lead to misinterpretation of CBC data. Current Interpretive Data was last revised on 2018. Basophil pct 0.2 % [facility] Comment: Interpretive Data Percent cell count reference ranges are not reported, since discordance with absolute values may lead to misinterpretation of CBC data. Current Interpretive Data was last revised on 2018. Blood 07/17/2024 5:38 AM CDT 07/17/2024 6:19 AM CDT us Michael Mckeon MD LAB BLOOD ORDERABLES Fi nal Result [facility] [address] [facility] Department [place] [address] * (ABNORMAL) Erythrocyte sedimentation rate (07/17/2024 5:38 AM CDT) [facility] Erythrocyte sedimentation rate 115(H) 1 - 20 mm/hr Comment:Testing performed by : [facility], [address] [place] [address]., [id number] Blood 07/17/2024 5:38 AM CDT 07/17/2024 6:19 AM CDT us Brenda Callahan MD LAB BLOOD ORDERABLES Final Result [facility] [address] [facility] [place] [address] * (ABNORMAL) Pro B-type natriuretic peptide (07/17/2024 5:38 AM CDT) [facility] NT-proBNP 14,955(H) <=300 pg/mL Comment: Interpretive Comments: A. Dyspnea in Acute Care [...] et.al. Eur Heart J. 2006:27:330-337. 2. Asia RW, Holden ALFARO. J. AM Kizzy Cardiol: Cardiovasc Imag. 2009;2: 216- 225. Interpretive Data Last Revised Date: 2018. Blood 07/17/2024 5:38 AM CDT 07/17/2024 6:03 AM CDT us Brenda Callahan MD LAB BLOOD ORDERABLES Final Result Performing Organization Address [facility] de Phone Number LES[address] [place] [address] * (ABNORMAL) Lipase (07/17/2024 5:38 AM CDT) Lipase 103(H) 10 - 99 Units/L Blood 07/17/2024 5:38 AM CDT 07/17/2024 6:03 AM CDT us Michael Mckeon MD LAB BLOOD ORDERABLES Fi nal Result Performing Organization Address [facility] Co de Phone Number [address] [place] [address] * Magnesium (07/17/2024 5:38 AM CDT) Magnesium 1.5 1.4 - 2.5 mg/dL Blood 07/17/2024 5:38 AM CDT 07/17/2024 6:03 AM CDT Michael Mckeon MD LAB BLOOD ORDERABLES Fi nal Result Performing Organization Address [facility] Co de Phone Number [address] [address] * (ABNORMAL) Basic metabolic panel (07/17/2024 5:38 AM CDT) Pathologist [facility] Sodium 136 135 - 145 mmol/L Potassium, pl 3.6 3.3 - 4.9 mmol/L [facility] Chloride 99 97 - 110 mmol/L [facility] CO2 30 22 - 32 mmol/L [facility] Anion gap 7 2 - 15 mmol/L [facility] BUN 8 6 - 25 mg/dL [facility] Creatinine 0.77(L) 0.80 - 1.30 mg/dL [facility] Glucose 113 70 - 199 mg/dL [facility] Comment: Interpretive Data Fasting glucose [...] 2022. Calcium 8.2(L) 8.5 - 10.3 mg/dL [facility] Blood 07/17/2024 5:38 AM CDT 07/17/2024 6:03 AM CDT Michael Mckeon MD LAB BLOOD ORDERABLES Fi nal Result Performing Organization Address [facility] Co de Phone Number [address] [address] * (ABNORMAL) Hepatic function panel (07/17/2024 5:38 AM CDT) [facility] Bilirubin, total 0.2 0.1 - 1.2 mg/dL Bilirubin, direct <0.2 0.1 - 0.3 mg/dL [facility] Protein, pl 6.6 6.5 - 8.5 g/dL [facility] Albumin 3.0(L) 3.5 - 5.0 g/dL [facility] Alk phos 170(H) 40 - 130 Units/L [facility] ALT 6(L) 7 - 55 Units/L [facility] AST 23 10 - 50 Units/L [facility] Blood 07/17/2024 5:38 AM CDT 07/17/2024 6:03 AM CDT us Michael Mckeon MD LAB BLOOD ORDERABLES Fi nal Result [facility] [address] [facility] Department [place] [address] * (ABNORMAL) CBC with auto differential (07/17/2024 5:38 AM CDT) [facility] WBC 8.4 3.8 - 9.9 K/cumm Hgb 9.1(L) 13.0 - 17.5 g/dL [facility] Hct 27.7(L) 38.9 - 50.3 % [facility] Plt 364 150 - 400 K/cumm [facility] MPV 10.4 9.1 - 12.3 fL [facility] RBC 2.75(L) 4.30 - 5.80 M/cumm [facility] MCV 100.7(H) 81.3 - 96.4 fL [facility] MCH 33.1 27.1 - 33.3 pg [facility] MCHC 32.9 32.3 - 35.7 g/dL [facility] RDW CV 16.5(H) 11.1 - 14.9 % [facility] RDW SD 59.5(H) 35.7 - 48.1 fL [facility] NRBC abs 0.03(H) 0.00 - 0.01 K/cumm [facility] Blood 07/17/2024 5:38 AM CDT 07/17/2024 6:19 AM CDT Michael Mckeon MD LAB BLOOD ORDERABLES Fi nal Result Performing Organization Address City/[facility] Co de Phone Number [facility] [address] [place] [address] * POCT glucose (07/17/2024 4:42 AM CDT) Glucose, POC 110 70 - 199 mg/dL Glucose comment 1 Use This Result [facility] Blood 07/17/2024 4:42 AM CDT 07/17/2024 4:42 AM CDT Michael Mckeon MD LAB POCT ORDERABLES - D EVICE Final Result Performing Organization Address [facility] Co de Phone Number [facility] [address] [place] [address] * POCT glucose (07/17/2024 12:41 AM CDT) Glucose, POC 144 70 - 199 mg/dL Glucose comment 1 Use This Result [facility] Blood 07/17/2024 12:4 1 AM CDT 07/17/2024 12:41 AM CDT Michael Mckeon MD LAB POCT ORDERABLES - D EVICE Final Result Performing Organization Address City/[facility] Co de Phone Number [facility] [address] [place] [address] * POCT glucose (07/16/2024 8:02 PM CDT) Glucose, POC 138 70 - 199 mg/dL Blood 07/16/2024 8:02 PM CDT 07/16/2024 8:02 PM CDT Michael Mckeon MD LAB POCT ORDERABLES - D EVICE Final Result Performing Organization Address City/[facility]/ZIP Co de Phone Number [facility] [address] [address] * POCT glucose (07/16/2024 4:20 PM CDT) Glucose, POC 142 70 - 199 mg/dL Glucose comment 1 Use This Result [facility] Gl[facility] comment 2 RN/MD Notified [facility] Blood 07/16/2024 4:20 PM CDT 07/16/2024 4:20 PM CDT us Mihcael Mckeon MD LAB POCT ORDERABLES - D EVICE Final Result Performing Organization Address [facility] Co de Phone Number [facility] [address] [address] * POCT glucose (07/16/2024 11:11 AM CDT) Glucose, POC 131 70 - 199 mg/dL Glucose comment 1 Use This Result [facility] Glucose comment 2 RN/MD Notified [facility] Blood 07/16/2024 11:1 1 AM CDT 07/16/2024 11:11 AM CDT us Michael Mckeon MD LAB POCT ORDERABLES - D EVICE Final Result Performing Organization Address [facility] Co de Phone Number LES[address] [address] * POCT glucose (07/16/2024 7:47 AM CDT) Glucose, POC 86 70 - 199 mg/dL Glucose comment 1 RN/MD Notified [facility] Glucose comment 2 Use This Result [facility] Blood 07/16/2024 7:47 AM CDT 07/16/2024 7:47 AM CDT us Michael Mckeon MD LAB POCT ORDERABLES - D EVICE Final Result Performing Organization Address City/[facility]/ZIP Co de Phone Number [facility] [address] [facility] Department [place] [address] * eGFR (07/16/2024 6:53 AM CDT) [facility] eGFR >90 >=60 mL/min/1. 73 m2 Comment: [...] interpretive data was last reviewed 2021. Blood 07/16/2024 6:53 AM CDT 07/16/2024 7:07 AM CDT us Michael Mckeon MD LAB BLOOD ORDERABLES Fi nal Result [facility] [address] [facility] Department [place] [address] * (ABNORMAL) Differential, auto (07/16/2024 6:53 AM CDT) [facility] Neutrophil abs 10.3(H) 1.5 - 6.5 K/cumm Imm gran abs 0.1 0.0 - 0.1 K/cumm [facility] Lymphocyte abs 3.5(H) 0.8 - 3.3 K/cumm [facility] Monocyte abs 1.2(H) 0.2 - 0.8 K/cumm [facility] Eosinophil abs 0.2 0.0 - 0.5 K/cumm [facility] Basophil abs 0.1 0.0 - 0.1 K/cumm [facility] Neutrophil pct 67.1 % [facility] Comment: Interpretive Data Percent cell count reference ranges are not reported, since discordance with absolute values may lead to misinterpretation of CBC data. Current Interpretive Data was last revised on 2018. Imm gran pct 0.5 % [facility] Comment: Interpretive Data Percent cell count reference ranges are not reported, since discordance with absolute values may lead to misinterpretation of CBC data. Current Interpretive Data was last revised on 2018. Lymphocyte pct 23.0 % [facility] Comment: Interpretive Data Percent cell count reference ranges are not reported, since discordance with absolute values may lead to misinterpretation of CBC data. Current Interpretive Data was last revised on 2018. Monocyte pct 7.7 % [facility] Comment: Interpretive Data Percent cell count reference ranges are not reported, since discordance with absolute values may lead to misinterpretation of CBC data. Current Interpretive Data was last revised on 2018. Eosinophil pct 1.3 % [facility] Comment: Interpretive Data Percent cell count reference ranges are not reported, since discordance with absolute values may lead to misinterpretation of CBC data. Current Interpretive Data was last revised on 2018. Basophil pct 0.4 % [facility] Comment: Interpretive Data Percent cell count reference ranges are not reported, since discordance with absolute values may lead to misinterpretation of CBC data. Current Interpretive Data was last revised on 2018. Blood 07/16/2024 6:53 AM CDT 07/16/2024 7:07 AM CDT us Michael Mckeon MD LAB BLOOD ORDERABLES Fi nal Result [address] [address] * (ABNORMAL) Lipase (07/16/2024 6:53 AM CDT) [facility] Lipase 297(H) 10 - 99 Units/L Blood 07/16/2024 6:53 AM CDT 07/16/2024 7:07 AM CDT Michael Mckeon MD LAB BLOOD ORDERABLES Fi nal Result Performing Organization Address City/[facility] Co de Phone Number [address] [place] [address] * Magnesium (07/16/2024 6:53 AM CDT) [facility] Magnesium 1.8 1.4 - 2.5 mg/dL Blood 07/16/2024 6:53 AM CDT 07/16/2024 7:07 AM CDT Michael Mckeon MD LAB BLOOD ORDERABLES Fi nal Result Performing Organization Address [facility] Co de Phone Number [address] [address] * (ABNORMAL) Basic metabolic panel (07/16/2024 6:53 AM CDT) [facility] Sodium 140 135 - 145 mmol/L Potassium, pl 3.9 3.3 - 4.9 mmol/L [facility] Chloride 101 97 - 110 mmol/L [facility] CO2 28 22 - 32 mmol/L [facility] Anion gap 11 2 - 15 mmol/L [facility] BUN 10 6 - 25 mg/dL [facility] Creatinine 0.84 0.80 - 1.30 mg/dL [facility] Glucose 95 70 - 199 mg/dL [facility] Comment: Interpretive Data Fasting glucose [...] interpretive data was last revised 2022. Calcium 8.4(L) 8.5 - 10.3 mg/dL [facility] Blood 07/16/2024 6:53 AM CDT 07/16/2024 7:07 AM CDT Michael Mckeon MD LAB BLOOD ORDERABLES Fi nal Result [address] [place] [address] * (ABNORMAL) Hepatic function panel (07/16/2024 6:53 AM CDT) Pathologist [facility] Bilirubin, total 0.2 0.1 - 1.2 mg/dL Bilirubin, direct <0.2 0.1 - 0.3 mg/dL [facility] Protein, pl 6.3(L) 6.5 - 8.5 g/dL [facility] Albumin 2.7(L) 3.5 - 5.0 g/dL [facility] Alk phos 164(H) 40 - 130 Units/L [facility] ALT <5(L) 7 - 55 Units/L [facility] AST 23 10 - 50 Units/L [facility] Blood 07/16/2024 6:53 AM CDT 07/16/2024 7:07 AM CDT Michael Mckeon MD LAB BLOOD ORDERABLES Fi nal Result [address] [place] [address] * (ABNORMAL) CBC with auto differential (07/16/2024 6:53 AM CDT) Pathologist [facility] WBC 15.3(H) 3.8 - 9.9 K/cumm Hgb 9.2(L) 13.0 - 17.5 g/dL [facility] Hct 28.5(L) 38.9 - 50.3 % [facility] Plt 384 150 - 400 K/cumm [facility] MPV 10.4 9.1 - 12.3 fL [facility] RBC 2.76(L) 4.30 - 5.80 M/cumm [facility] MCV 103.3(H) 81.3 - 96.4 fL [facility] MCH 33.3 27.1 - 33.3 pg [facility] MCHC 32.3 32.3 - 35.7 g/dL [facility] RDW CV 16.3(H) 11.1 - 14.9 % [facility] RDW SD 59.7(H) 35.7 - 48.1 fL [facility] NRBC abs 0.06(H) 0.00 - 0.01 K/cumm [facility] Blood 07/16/2024 6:53 AM CDT 07/16/2024 7:07 AM CDT us Michael Mckeon MD LAB BLOOD ORDERABLES Fi nal Result Performing Organization Address [facility] Co de Phone Number [address] [place] [address] * IgM (07/16/2024 6:53 AM CDT) Pathologist [facility] Immunoglobulin M 125 40 - 230 mg/dL Blood 07/16/2024 6:53 AM CDT 07/16/2024 7:07 AM CDT us Osmar Orta MD LAB BLOOD ORDERABLES Final R esult Performing Organization Address City/[facility] Co de Phone Number [address] [place] [address] * IgG (07/16/2024 6:53 AM CDT) Pathologist [facility] Immunoglobulin G 1,526 700 - 1,600 mg/dL Blood 07/16/2024 6:53 AM CDT 07/16/2024 7:07 AM CDT us Osmar Orta MD LAB BLOOD ORDERABLES Final R esult Performing Organization Address [facility] Co de Phone Number LESLIE[address] [place] [address] * POCT glucose (07/16/2024 4:28 AM CDT) Glucose, POC 122 70 - 199 mg/dL Blood 07/16/2024 4:28 AM CDT 07/16/2024 4:28 AM CDT us Michael Mckeon MD LAB POCT ORDERABLES - D EVICE Final Result Performing Organization Address [facility] de Phone Number LES[address] [address] * POCT glucose (07/16/2024 2:57 AM CDT) Glucose, POC 93 70 - 199 mg/dL Blood 07/16/2024 2:57 AM CDT 07/16/2024 2:57 AM CDT us Michael Mckeon MD LAB POCT ORDERABLES - D EVICE Final Result Performing Organization Address [facility] Co de Phone Number LESL[address] [address] * POCT glucose (07/16/2024 2:24 AM CDT) Glucose, POC 85 70 - 199 mg/dL Blood 07/16/2024 2:24 AM CDT 07/16/2024 2:24 AM CDT Michael Mckeon MD LAB POCT ORDERABLES - D EVICE Final Result Performing Organization Address City/[facility]/ZIP Co de Phone Number ZULEMA [address] [address] * POCT glucose (07/16/2024 12:28 AM CDT) Glucose, POC 81 70 - 199 mg/dL Blood 07/16/2024 12:2 8 AM CDT 07/16/2024 12:28 AM CDT Michael Mckeon MD LAB POCT ORDERABLES - D EVICE Final Result Performing Organization Address [facility] Co de Phone Number ZULEMA [address] [address] * POCT glucose (07/15/2024 8:19 PM CDT) Glucose, POC 90 70 - 199 mg/dL Blood 07/15/2024 8:19 PM CDT 07/15/2024 8:19 PM CDT Michael Mckeon MD LAB POCT ORDERABLES - D EVICE Final Result Performing Organization Address [facility] Co de Phone Number [address] [address] * POCT glucose (07/15/2024 4:11 PM CDT) Glucose, POC 119 70 - 199 mg/dL Glucose comment 1 Use This Result [facility] Glucose comment 2 RN/MD Notified [facility] Blood 07/15/2024 4:11 PM CDT 07/15/2024 4:11 PM CDT Michael Mckeon MD LAB POCT ORDERABLES - D EVICE Final Result Performing Organization Address City/[facility]/ZIP Co de Phone Number [address] [address] * Pneumonia PCR Sputum (07/15/2024 4:00 PM CDT) C. pneumoniae DNA Not Detected Not Detected Comment:Testing performed by : [facility], 1 [place] [address] Legionella pneumophila DNA Not Detected Not Detected CERAVTAR Comment:Testing performed by : [facility], [address] [place]., [address] M. pneumoniae DNA Not Detected Not Detected CERAVTAR Comment:Testing performed by : [facility], 1 [facility], [address] Adenovirus DNA Not Detected Not Detected CERAVTAR Comment:Testing performed by : [facility], [address] [place]., [address] Coronavirus (229E, OC43, HKU1, NL63) RNA Not Detected Not Detected CERAVTAR Comment:Testing performed by : [facility], [address] [place]., [address] Metapneumovirus RNA Not Detected Not Detected CERAVTAR Comment:Testing performed by : [facility], [address] [place]., [address] Rhinovirus/Enterov irus RNA Not Detected Not Detected CERAVTAR Comment:Testing performed by : [facility], 1 [facility], [address] Influenza A RNA Not Detected Not Detected CERAVTAR Comment:Testing performed by : [facility], 1 [place]., [address] Influenza B RNA Not Detected Not Detected CERAVTAR Comment:Testing performed by : [facility], [address] [place]., [address] Parainfluenza virus (1-4) RNA Not Detected Not Detected CERAVTAR Comment:Testing performed by : [facility], 1 [facility], [address] RSV RNA Not Detected Not Detected CERAVTAR Comment:Testing performed by : [facility], 1 [place]., [address] Sputum 07/15/2024 4:00 PM CDT 07/15/2024 8:55 PM CDT Narrative ZULEMA - 07/15/2024 10:18 PM CDT The [employer] Pneumonia Panel is a multiplexed nucleic acid test capable of simultaneous detection and identification of multiple respiratory viruses and bacteria. ??This panel detects Adenovirus, coronaviruses (Coronavirus HKU1, Coronavirus NL63, Coronavirus 229E, and Coronavirus OC43), Influenza A, Influenza B, Human metapneumovirus, Parainfluenza (1-4), RSV, Rhinovirus/Enterovirus, Chlamydia pneumoniae, Mycoplasma pneumoniae, and Legionella pneumophila. Additional aerobic bacterial targets are reported with the accompanying culture results with the same accession number. Rhinovirus and Enterovirus are genetically similar and cannot be reliably differentiated with this method. Negative adenovirus results should be confirmed by an alternative methodology (i.e. standalone PCR) if the suspicion for adenovirus infection is high. ??The results of this test must be considered in the clinical context of the patient and should not be used as the sole basis for diagnosis, treatment, or other management decisions. ??Negative results in the setting of a respiratory illness may be due to infection with pathogens that are not detected by this test. ??Positive results do not rule out infection/co-infection with other organisms. The [employer] Pneumonia Panel is FDA cleared for lower respiratory tract specimens. The performance characteristics of this assay have been determined by [facility]. Current interpretive data was last revised on 2024. Jaki Reynolds MANAGER BAR LAB MICROBIOLOGY - GENERAL ORDER SUBHA Final Result ZULEMA [address] [facility] Department [place] [address] * (ABNORMAL) Pneumonia PCR with aerobic culture and Gram stain Sputum (07/15/2024 4:00 PM CDT) Direct Specimen Exam Molecular Analysis: 10^6 copies/mL Klebsiella pneumoniae group Correlation of molecular analysis with final culture results is recommended. Comment:Testing performed by : [facility], 1 [place]., [address] Direct Specimen Exam Stain: Few polymorphonuclear leukocytes seen. No squamous epithelial cells seen. Rare mixed bacterial oscar seen on Gram stain. ZULEMA CHAVEZ Comment:Testing performed by : [facility], [address] [place]., [address] Report Final Report: Growth indicates upper respiratory oscar. (.) ZULEMA Comment:Testing performed by : [facility], [address] [place]., [address] Organism GROWTH INDICATES UPPER RESPIRATORY OSCAR. ZULEMA Sputum 07/15/2024 4:00 PM CDT 07/15/2024 7:36 PM CDT Narrative [facility] - 07/19/2024 2:43 PM CDT When rapid molecular testing results are reported, testing completed using the [employer] Pneumonia Panel. ??This molecular assay detects: Acinetobacter calcoaceticus-baumannii complex, Enterobacter cloacae complex, Escherichia coli, Haemophilus influenzae, Enterobacter (Klebsiella) aerogenes, ??Klebsiella oxytoca, Klebsiella pneumoniae group, Moraxella catarrhalis, Proteus spp., Pseudomonas aeruginosa, Serratia marcescens, Staphylococcus aureus, Streptococcus agalactiae, Streptococcus pneumoniae, and Streptococcus pyogenes. ?? These bacteria are detected and reported semi-quantitatively with bins representing approximately 10^4, 10^5, 10^6, or greater than or equal to 10^7 genomic copies of bacterial nucleic acid per mL (copies/mL) of specimen. ??These quantities are reported to aid in estimating the relative abundance of organism(s) detected within the specimen and to correlate these results with culture results. ?? For Staphylococcus aureus, mecA/C and MREJ genes are evaluated to predict methicillin resistance or susceptibility. ??For Gram-negative bacteria, the beta-lactamases CTX-M, IMP, KPC, NDM, VIM and OXA-48-like are evaluated and reported if detected. ??For Gram-negative organisms, the absence of detection of resistance markers does not exclude resistance. ?? Correlation with final culture results and susceptibility testing is recommended. The [employer] Pneumonia Panel is cleared by the [place] Food and Drug Administration and its performance characteristics have been confirmed by the [facility]. ??The performance of the [employer] Pneumonia Panel has not been established for monitoring treatment of infection and bacterial nucleic acids may persist independent of organism viability. [facility] LAB MICROBIOLOGY - GENERAL ORDER SUBHA Final Result Performing Organization Address [facility] Co de Phone Number ZULEMA [address] [address] * (ABNORMAL) CRP (acute phase) (07/15/2024 12:35 PM CDT) Pathologist [facility] CRP 82.8(H) <=10.0 mg/L Blood 07/15/2024 12:3 5 PM CDT 07/15/2024 12:53 PM CDT [facility] LAB BLOOD ORDERABLES Final Resul t Performing Organization Address [facility] de Phone Number LES[address] [address] * (ABNORMAL) Erythrocyte sedimentation rate (07/15/2024 12:35 PM CDT) Pathologist [facility] Erythrocyte sedimentation rate 72(H) 1 - 20 mm/hr Comment:Testing performed by : [facility], [address] [place] [address]., [address] Blood 07/15/2024 12:3 5 PM CDT 07/15/2024 12:53 PM CDT [facility] LAB BLOOD ORDERABLES Final Resul t Performing Organization Address [facility] Co de Phone Number LESL[address] [address] * MRSA Only (Staphylococcus aureus) PCR Nasal (07/15/2024 12:09 PM CDT) Pathologist [facility] PCR Scrn, Methicillin resistant Staphylococcus aureus (MRSA) Not Detected Not Detected Comment: Interpretive Data Testing performed using Nucleic Acid Amplification with the [employer] Xpert MRSA NxG Assay. This assay detects target DNA from mecA, mecC and the SCCmec insertion site of Staphylococcus aureus using Real-Time PCR and has been cleared by the FDA. Performance characteristics have been verified by the [facility]. Current Interpretive Data was last revised on 2023 Nasal 07/15/2024 12:0 9 PM CDT 07/15/2024 12:15 PM CDT Jaki Reynolds NP LAB MICROBIOLOGY - GENERAL ORDER SUBHA Final Result Performing Organization Address City/[facility] Co de Phone Number LESL[address] [address] * (ABNORMAL) Troponin T high-sensitivity (07/15/2024 11:33 AM CDT) Trop T hs 134(H) <=22 ng/L Comment: Interpretive Data For further hscTnT resources including the diagnostic algorithm and an aid in interpretation, copy and paste this link: https://nrl.testcatalog.org/show/hsTrop Current Interpretive Data last revised 2020. Blood 07/15/2024 11:3 3 AM CDT 07/15/2024 11:49 AM CDT Result [facility] Michael Mckeon MD LAB BLOOD ORDERABLES Fi nal Result Performing Organization Address [facility] Co de Phone Number [address] [place] [address] * POCT glucose (07/15/2024 10:36 AM CDT) Glucose, POC 93 70 - 199 mg/dL Glucose comment 1 Use This Result [facility] Glucose comment 2 RN/MD Notified ZULEMA Blood 07/15/2024 10:3 6 AM CDT 07/15/2024 10:36 AM CDT Michael Mckeon MD LAB POCT ORDERABLES - D EVICE Final Result Performing Organization Address City/[facility] Co de Phone Number [address] [place] [address] * (ABNORMAL) Pro B-type natriuretic peptide (07/15/2024 9:55 AM CDT) NT-proBNP 18,269(H) <=300 pg/mL Comment: Interpretive Comments: A. Dyspnea in Acute Care [...] Interpretive Data Last Revised Date: 2018. Blood 07/15/2024 9:55 AM CDT 07/15/2024 10:27 AM CDT Rukhsana Collins MANAGER BAR LAB BLOOD ORDERABLES Fi nal Result Performing Organization Address [facility] Co de Phone Number [address] [place] [address] * POCT glucose (07/15/2024 7:26 AM CDT) Glucose, POC 106 70 - 199 mg/dL Glucose comment 1 Use This Result [facility] Glucose comment 2 RN/MD Notified [facility] Blood 07/15/2024 7:26 AM CDT 07/15/2024 7:26 AM CDT us Michael Mckeon MD LAB POCT ORDERABLES - D EVICE Final Result Performing Organization Address [facility] de Phone Number [address] [address] * POCT glucose (07/15/2024 4:31 AM CDT) Glucose, POC 120 70 - 199 mg/dL Blood 07/15/2024 4:31 AM CDT 07/15/2024 4:31 AM CDT James Bruno MD LAB POCT ORDERA BLES - DEVICE Final Result Performing Organization Address [facility] Co de Phone Number [address] [place] [address] * eGFR (07/15/2024 3:27 AM CDT) eGFR >90 >=60 mL/min/1. 73 [...] interpretive data was last reviewed 2021. Blood 07/15/2024 3:27 AM CDT 07/15/2024 3:34 AM CDT Rukhsana Collins MANAGER BAR LAB BLOOD ORDERABLES Fi nal Result Performing Organization Address City/State/[facility] Co de Phone Number [facility] [address] [facility] Department [place] [address] * Differential, auto (07/15/2024 3:27 AM CDT) Pathologist [facility] Neutrophil abs 5.5 1.5 - 6.5 K/cumm Imm gran abs 0.0 0.0 - 0.1 K/cumm [facility] Lymphocyte abs 2.4 0.8 - 3.3 K/cumm [facility] Monocyte abs 0.6 0.2 - 0.8 K/cumm [facility] Eosinophil abs 0.1 0.0 - 0.5 K/cumm [facility] Basophil abs 0.0 0.0 - 0.1 K/cumm [facility] Neutrophil pct 63.8 % [facility] Comment: Interpretive Data Percent cell count reference ranges are not reported, since discordance with absolute values may lead to misinterpretation of CBC data. Current Interpretive Data was last revised on 2018. Imm gran pct 0.3 % [facility] Comment: Interpretive Data Percent cell count reference ranges are not reported, since discordance with absolute values may lead to misinterpretation of CBC data. Current Interpretive Data was last revised on 2018. Lymphocyte pct 27.3 % [facility] Comment: Interpretive Data Percent cell count reference ranges are not reported, since discordance with absolute values may lead to misinterpretation of CBC data. Current Interpretive Data was last revised on 2018. Monocyte pct 7.2 % [facility] Comment: Interpretive Data Percent cell count reference ranges are not reported, since discordance with absolute values may lead to misinterpretation of CBC data. Current Interpretive Data was last revised on 2018. Eosinophil pct 1.1 % [facility] Comment: Interpretive Data Percent cell count reference ranges are not reported, since discordance with absolute values may lead to misinterpretation of CBC data. Current Interpretive Data was last revised on 2018. Basophil pct 0.3 % [facility] Comment: Interpretive Data Percent cell count reference ranges are not reported, since discordance with absolute values may lead to misinterpretation of CBC data. Current Interpretive Data was last revised on 2018. Blood 07/15/2024 3:27 AM CDT 07/15/2024 3:34 AM CDT us Rukhsana Collins MANAGER BAR LAB BLOOD ORDERABLES Fi nal Result [facility] [address] [facility] Department [place] [address] * (ABNORMAL) Pro B-type natriuretic peptide (07/15/2024 3:27 AM CDT) NT-proBNP 12,856(H) <=300 pg/mL Comment: Interpretive Comments: A. Dyspnea in Acute Care [...] et.al. Eur Heart J. 2006:27:330-337. 2. Asia RW, Holden AM. J. AM Kizzy Cardiol: Cardiovasc Imag. 2009;2: 216- 225. Interpretive Data Last Revised Date: 2018. Blood 07/15/2024 3:27 AM CDT 07/15/2024 3:34 AM CDT Rukhsana Collins MANAGER BAR LAB BLOOD ORDERABLES Fi nal Result Performing Organization Address City/State/[facility] Co de Phone Number ZULEMA [address] [address] * (ABNORMAL) Lipase (07/15/2024 3:27 AM CDT) Lipase 865(H) 10 - 99 Units/L Blood 07/15/2024 3:27 AM CDT 07/15/2024 3:34 AM CDT us Rukhsana Collins MANAGER BAR LAB BLOOD ORDERABLES Fi nal Result Performing Organization Address [facility] de Phone Number ZULEMA [address] [address] * (ABNORMAL) Troponin T high-sensitivity (07/15/2024 3:27 AM CDT) Trop T hs 192(H) <=22 ng/L Comment: Interpretive Data For further hscTnT resources including the diagnostic algorithm and an aid in interpretation, copy and paste this link: https://nrl.testcatalog.org/show/hsTrop Current Interpretive Data last revised 2020. Blood 07/15/2024 3:27 AM CDT 07/15/2024 3:34 AM CDT us Rukhsana Collins MANAGER BAR LAB BLOOD ORDERABLES Fi nal Result Performing Organization Address [facility] Co de Phone Number ZULEMA [address] [address] * Phosphorus (07/15/2024 3:27 AM CDT) Pathologist [facility] Phosphorus, pl 3.0 2.3 - 4.5 mg/dL Blood 07/15/2024 3:27 AM CDT 07/15/2024 3:34 AM CDT us Rukhsana Collins MANAGER BAR LAB BLOOD ORDERABLES Fi nal Result Performing Organization Address [facility] Co de Phone Number LESLIE[address] [address] * (ABNORMAL) Magnesium (07/15/2024 3:27 AM CDT) [facility] Magnesium 1.3(L) 1.4 - 2.5 mg/dL Blood 07/15/2024 3:2 7 AM CDT 07/15/2024 3:34 AM CDT Rukhsana Collins MANAGER BAR LAB BLOOD ORDERABLES Fi nal Result Performing Organization Address [facility] Co de Phone Number [address] [address] * (ABNORMAL) Basic metabolic panel (07/15/2024 3:27 AM CDT) [facility] Sodium 137 135 - 145 mmol/L Potassium, pl 3.8 3.3 - 4.9 mmol/L [facility] Chloride 103 97 - 110 mmol/L [facility] CO2 25 22 - 32 mmol/L [facility] Anion gap 9 2 - 15 mmol/L [facility] BUN 11 6 - 25 mg/dL [facility] Creatinine 0.62(L) 0.80 - 1.30 mg/dL [facility] Glucose 131 70 - 199 mg/dL [facility] Comment: Interpretive Data Fasting glucose [...] interpretive data was last revised 2022. Calcium 8.7 8.5 - 10.3 mg/dL [facility] Blood 07/15/2024 3:27 AM CDT 07/15/2024 3:34 AM CDT Rukhsana Collins MANAGER BAR LAB BLOOD ORDERABLES Fi nal Result Performing Organization Address City/[facility] Co de Phone Number ZULEMA [facility] [place] [address] * (ABNORMAL) CBC with auto differential (07/15/2024 3:27 AM CDT) Pathologist [facility] WBC 8.7 3.8 - 9.9 K/cumm Hgb 9.8(L) 13.0 - 17.5 g/dL [facility] Hct 30.0(L) 38.9 - 50.3 % [facility] Plt 441(H) 150 - 400 K/cumm [facility] MPV 10.1 9.1 - 12.3 fL [facility] RBC 2.97(L) 4.30 - 5.80 M/cumm [facility] MCV 101.0(H) 81.3 - 96.4 fL [facility] MCH 33.0 27.1 - 33.3 pg [facility] MCHC 32.7 32.3 - 35.7 g/dL [facility] RDW CV 15.6(H) 11.1 - 14.9 % [facility] RDW SD 57.1(H) 35.7 - 48.1 fL [facility] NRBC abs 0.05(H) 0.00 - 0.01 K/cumm [facility] Blood 07/15/2024 3:27 AM CDT 07/15/2024 3:34 AM CDT Rukhsana Collins MANAGER BAR LAB BLOOD ORDERABLES Fi nal Result ZULEMA [address] [employer] [place] [address] * Sepsis Lactate w/ Reflex (07/15/2024 3:27 AM CDT) Pathologist [facility] Sepsis Lactate 0.8 0.7 - 2.0 mmol/L Blood 07/15/2024 3:27 AM CDT 07/15/2024 3:32 AM CDT Cameron BERNAL LAB BLOOD ORDERABLES Final R esult Performing Organization Address [facility] Co de Phone Number [address] [place] [address] * POCT glucose (07/15/2024 12:20 AM CDT) Glucose, POC 111 70 - 199 mg/dL Glucose comment 1 Use This Result [facility] Blood 07/15/2024 12:2 0 AM CDT 07/15/2024 12:20 AM CDT James Bruno MD LAB POCT ORDERA BLES - DEVICE Final Result Performing Organization Address [facility] de Phone Number [address] [place] [address] * (ABNORMAL) Urinalysis, microscopic only (07/14/2024 11:34 PM CDT) WBC, ur 6-10(A) 0 - 5 /HPF RBC, ur 6-10(A) 0 - 2 /HPF ZULEMA Mucous, ur Present(A) ZULEMA Hyaline casts, ur 1-5 0 - 10 /LPF [facility] Culture Reflex Comment Reflex conditions for urine culture (WBC >10) not met. ZULEMA Urine 07/14/2024 11:3 4 PM CDT 07/14/2024 11:37 PM CDT James Bruno MD LAB URINE ORDER SUBHA Final Result Performing Organization Address [facility] Co de Phone Number [address] [employer] [place], [place] [id number] * (ABNORMAL) Urinalysis reflex to microscopic and culture Urine (07/14/2024 11:34 PM CDT) Color, ur Yellow Yellow Clarity, ur Clear Clear [facility] Specific gravity, ur 1.045(H) 1.003 - 1.030 [facility] pH, urine 6.0 [facility] Comment: Interpretive Data ? Urine pH is affected by diet, medications, systemic acid-base disturbances, and renal tubular function. ??pH may affect urinary stone formation. ??For example, urine pH below 6.0 may help reduce the tendency for calcium phosphate stones and pH greater than 6.0 may reduce the tendency for uric acid stone formation. Source: [facility] Current Interpretive Data was last revised on 2017 Protein, ur ql Negative Negative [facility] Glucose, ur ql Negative Negative [facility] Ketones, ur Negative Negative [facility] Bilirubin, ur Negative Negative [facility] Blood, ur 2+(A) Negative [facility] Urobilinogen, ur <2.0 <2.0 mg/dL [facility] Nitrite, ur Negative Negative [facility] Leukocyte esterase, ur Negative Negative [facility] UA reflex comment Reflex to microscopic UA will be performed. [facility] Urine 07/14/2024 11:3 4 PM CDT 07/14/2024 11:37 PM CDT us James Bruno MD LAB MICROBIOLOG Y - GENERAL ORDERABLES Final Result Performing Organization Address City/[facility]/ZIP Co de Phone Number ZULEMA [address] [facility] Department [place] [address] * PTH (07/14/2024 11:30 PM CDT) PTH 18 15 - 65 pg/mL Blood 07/14/2024 11:3 0 PM CDT 07/14/2024 11:33 PM CDT us Cameron BERNAL LAB BLOOD ORDERABLES Final R esult Performing Organization Address City/[facility]/ZIP Co de Phone Number ZULEMA [address] [facility] Department [place] [address] * Blood culture Blood Peripheral (07/14/2024 10:53 PM CDT) Report Final Report: No growth Comment:Testing performed by : [facility], [address] [facility], [place]., [address] Blood (Peripheral) 07/14/2024 10:53 PM CDT 07/15/2024 4:57 AM CDT Narrative ZULEMA CHAVEZ - 07/19/2024 7:01 AM CDT From a different site than #1. Draw Blood cultures before administration of Antibiotics Collection->Peripheral 1. ?Blood cultures are incubated for 4 days on a continuously monitored blood culture system. The first report of a negative culture is issued within 24 hours of receipt of the specimen in the laboratory. 2. ?Positive culture results are reported as soon as they are detected. 3. ?The most important factor for detection of microbes in the setting of bloodstream infection is the volume of blood submitted for culture. Failure to collect an optimal blood volume can result in false negative blood cultures. For pediatric patients, the recommended blood volume to collect is 1 mL of blood per year of patient age (up to 20 mL) per blood culture set. For adult patients, 20 mL of blood, divided equally between aerobic and anaerobic blood culture bottles, is recommended for each blood culture set. 4. ?For blood cultures with Gram-positive cocci, a rapid molecular test for organism identification may be performed using the [employer] Gram-Positive Blood Culture Assay. This assay detects microbial DNA in positive blood culture broth via hybridization of target DNA to capture oligonucleotides on a microarray. This assay has been cleared by the [place] Food and Drug Administration and its performance characteristics have been verified by the [facility]. 5. ?For questions about this culture, contact the Microbiology Laboratory at [phone]. Interpretive data was last revised on 2020. us Cameron BERNAL LAB MICROBIOLOGY - GENERAL O RDERABLES Final Result ZULEMA CHAVEZ [address] [employer] [facility] Department [place] [address] * Blood culture Blood Peripheral (07/14/2024 10:50 PM CDT) Report Final Report: No growth Comment:Testing performed by : [facility], [address] [facility], [place]., [address] Blood (Peripheral) 07/14/2024 10:50 PM CDT 07/15/2024 4:57 AM CDT Carlos A CHAVEZ - 07/19/2024 7:01 AM CDT Draw Blood cultures before administration of Antibiotics Collection->Peripheral 1. ?Blood cultures are incubated for 4 days on a continuously monitored blood culture system. The first report of a negative culture is issued within 24 hours of receipt of the specimen in the laboratory. 2. ?Positive culture results are reported as soon as they are detected. 3. ?The most important factor for detection of microbes in the setting of bloodstream infection is the volume of blood submitted for culture. Failure to collect an optimal blood volume can result in false negative blood cultures. For pediatric patients, the recommended blood volume to collect is 1 mL of blood per year of patient age (up to 20 mL) per blood culture set. For adult patients, 20 mL of blood, divided equally between aerobic and anaerobic blood culture bottles, is recommended for each blood culture set. 4. ?For blood cultures with Gram-positive cocci, a rapid molecular test for organism identification may be performed using the [employer] Gram-Positive Blood Culture Assay. This assay detects microbial DNA in positive blood culture broth via hybridization of target DNA to capture oligonucleotides on a microarray. This assay has been cleared by the [place] Food and Drug Administration and its performance characteristics have been verified by the [facility] Microbiology Laboratory. 5. ?For questions about this culture, contact the Microbiology Laboratory at [phone]. Interpretive data was last revised on 2020. us Cameron BERNAL LAB MICROBIOLOGY - GENERAL O RDERABLES Final Result ZULEMA CHAVEZ [address] [facility] Department [place] [address] * (ABNORMAL) Sepsis Lactate w/ Reflex (07/14/2024 10:50 PM CDT) Sepsis Lactate 2.6(C) 0.7 - 2.0 mmol/L Comment:Critical Result call ed to and read back by [email or web address], DATE: 2024-07-14 23:40:31 BY: [email or web address] Blood 07/14/2024 10:5 0 PM CDT 07/14/2024 11:10 PM CDT us Cameron Pierce PA LAB BLOOD ORDERABLES Final R esult Performing Organization Address [facility] Co de Phone Number LESLIE[address] [place] [address] * (ABNORMAL) Troponin T high-sensitivity 6-hour (07/14/2024 10:50 PM CDT) Trop T hs 121(H) <=22 ng/L Comment: Interpretive Data For further hscTnT resources including the diagnostic algorithm and an aid in interpretation, copy and paste this link: https://nrl.testcatalog.org/show/hsTrop Current Interpretive Data last revised 2020. Trop T hs interp Equivocal [facility] Blood 07/14/2024 10:5 0 PM CDT 07/14/2024 11:10 PM CDT us Willam Bryant MD LAB BLOOD ORDERABLES Final Result Performing Organization Address [facility] de Phone Number [address] [place] [address] * CT Chest W Contrast (07/14/2024 10:34 PM CDT) Anatomical Region Laterality Modality Body N/A Computed Tomogra phy 07/14/2024 11:1 8 PM CDT Narrative 07/14/2024 11:24 PM CDT EXAM DESCRIPTION: CT CHEST W CONTRAST REASON FOR STUDY: CT abdomen pelvis evidence of new multiple bilateral ?? pulmonary nodules mostly in tree-in-bud distribution and endobronchial filling defects likely mucous plugs or lesion; CT chest w/ contrast recommended; pt has hsitory of leukemia, COPD ?? Pt reports epigastric pain that started ??at around 2 pm to day. Pt reports it feels like something is jabbing my stomach that is causing me to be nauseous.. pt reports pain is at 8/10 on pain scale. ?Pt also has a slightly productive cough, ct chest recommended on abd scan ? TECHNIQUE: CT scan of the chest performed with intravenous contrast using helical scanning technique with dynamic intravenous contrast injection. ?? Reconstructed coronal and sagittal MPR images reviewed. All images stored on PACS. ??Automated exposure control was used as a dose optimization technique for this examination. CONTRAST TYPE/DOSE: 100mL of IOVERSOL 350 MG IODINE/ML INTRAVENOUS SYRINGE ?? injected via ??intravenous COMPARISON: 03/27/2024 REFERENCE: Per ACR white paper recommendations, unless otherwise specified no follow-up imaging is recommended for incidental renal and adrenal lesions per consensus recommendations based on imaging criteria. Further lab evaluation could be pursued based on clinical findings. FINDINGS: LUNGS: ??Coarse cavitary process in the right lung apex shows no significant overall change since March. ??Smaller posterior coarse opacity in the left apex slightly decreased in size. ??The nodule on image 39/130 in the left upper lung shows no definite change. ??New scattered coarse nodular opacities are present throughout the left lower lobe and in the superior segment right lower lobe and dependent right lower lobe. ??Advanced background emphysema. ?? Bronchiectasis. ??Trachea and major airways are grossly patent. ??No effusion. ?? HEART/MEDIASTINUM/AIMEE: ??Heart size slightly small reflecting hyperinflation. ?? Coronary artery calcifications/stents. ??Thoracic inlet unremarkable. UPPER ABDOMEN: ??Haziness around the pancreatic head reviewed separately. MUSCULOSKELETAL: ??Small healing left posterior 11th rib fracture appears new from the prior. ?? CHEST WALL: ??Unremarkable. ?? IMPRESSION: 1. ?? Scattered coarse nodular opacities throughout the lower lobes have increased since 03/27/2024, favored to be infectious/inflammatory. 2. ?? The large cavitary right apex mass and scattered opacities in the left upper lobe are stable to decreased in extent. 3. ?? Pulmonary arteries are clear. ? THIS IS AN ELECTRONICALLY VERIFIED FINAL REPORT 07/14/2024 11:24 PM - Electronically signed by ??Kaushik Nur M.D. AR D: ??07/14/2024 11:24 PM T: Report ID: [id number] Reading Location: ??[id number] Procedure Note Kaushik Nur MD - 07/14/2024 EXAM DESCRIPTION: CT CHEST W CONTRAST REASON FOR STUDY: CT abdomen pelvis evidence of new multiple bilateral pulmonary nodules mostly in tree-in-bud distribution and endobronchialfilling defects likely mucous plugs or lesion; CT chest w/ contrast recommended;pt has hsitory of leukemia, COPD Pt reports epigastric pain that started at around 2 pm to day. Pt reportsit feels like something is jabbing my stomach that is causing me to benauseous.. pt reports pain is at 8/10 on pain scale. Pt also has a slightlyproductive cough, ct chest recommended on abd scan TECHNIQUE: CT scan of the chest performed with intravenous contrast using helical scanning technique with dynamic intravenous contrast injection. Reconstructed coronal and sagittal MPR images reviewed. All images storedon PACS. Automated exposure control was used as a dose optimizationtechnique for this examination. CONTRAST TYPE/DOSE: 100mL of IOVERSOL 350 MG IODINE/ML INTRAVENOUS SYRINGE injected via intravenous COMPARISON: 03/27/2024 REFERENCE: Per ACR white paper recommendations, unless otherwise specifiedno follow-up imaging is recommended for incidental renal and adrenal lesionsper consensus recommendations based on imaging criteria. Further labevaluation could be pursued based on clinical findings. FINDINGS: LUNGS: Coarse cavitary process in the right lung apex shows nosignificant overall change since March. Smaller posterior coarse opacity in the leftapex slightly decreased in size. The nodule on image 39/130 in the left upperlung shows no definite change. New scattered coarse nodular opacities arepresent throughout the left lower lobe and in the superior segment right lowerlobe and dependent right lower lobe. Advanced background emphysema. Bronchiectasis. Trachea and major airways are grossly patent. Noeffusion. HEART/MEDIASTINUM/AIMEE: Heart size slightly small reflectinghyperinflation. Coronary artery calcifications/stents. Thoracic inlet unremarkable. UPPER ABDOMEN: Haziness around the pancreatic head reviewed separately. MUSCULOSKELETAL: Small healing left posterior 11th rib fracture appearsnew from the prior. CHEST WALL: Unremarkable. IMPRESSION: 1. Scattered coarse nodular opacities throughout the lower lobes have increased since 03/27/2024, favored to be infectious/inflammatory. 2. The large cavitary right apex mass and scattered opacities in theleft upper lobe are stable to decreased in extent. 3. Pulmonary arteries are clear. THIS IS AN ELECTRONICALLY VERIFIED FINAL REPORT 07/14/2024 11:24 PM - Electronically signed by Kaushik FERREIRA T: Report ID: [id number] Reading Location: [place] [address] PROCEDURES Final Resu lt * CT Abdomen Pelvis W Contrast (07/14/2024 8:49 PM CDT) Anatomical Region Laterality Modality Body N/A Computed Tomogra phy 07/14/2024 9:12 PM CDT Narrative 07/14/2024 9:30 PM CDT EXAM DESCRIPTION: ?? CT ABDOMEN PELVIS W CONTRAST REASON FOR STUDY: ?? Epigastric pain, elevated lipase ?? I woke up this morning and I had bad pain in my stomach. I started throwing up and now there is a severe pain in the top center of my stomach. ??Hx: leukemia ?? TECHNIQUE: CT scan of the abdomen and pelvis performed with intravenous and ?? without ??oral contrast using helical scanning technique with dynamic intravenous contrast injection. Reconstructed coronal and sagittal MPR images reviewed. All images stored on PACS. Automated exposure control was used as a dose optimization technique for this examination. CONTRAST TYPE/DOSE: ?? 100mL of IOVERSOL 350 MG IODINE/ML INTRAVENOUS SYRINGE ?? injected via ?? intravenous COMPARISON: ?? CT abdomen and pelvis 12/12/2021, outside hospital CT chest 05/28/2024 FINDINGS: LOWER CHEST: ?? There are multiple new endobronchial filling defects which may represent mucous plugs or endobronchial lesions in the visualized left lower lobe (01/16-14). ??Multiple new bilateral pulmonary nodules mostly in tree-in-bud distribution visualized in the lower lobes, suspicious for multifocal infectious process. ??New large irregular 2.4 x 1.4 cm nodule in the right lung base (02/01) and 1.4 x 1.9 cm nodule in the left lung base raise the suspicion for possible metastatic disease. LIVER: ?? Normal size. ??No identified cystic or solid masses. GALLBLADDER: ?? Surgically absent. BILE DUCTS: ?? No intrahepatic or extrahepatic ductal dilatation. SPLEEN: ?? Normal size. ??No focal lesions. PANCREAS: ?? There is diffuse peripancreatic fat stranding predominantly in the mid body and head of the pancreas consistent with acute pancreatitis. ?? Redemonstration of peripancreatic fluid collection at the tail, unchanged. ??No suspicious pancreatic lesion or ductal dilatation. ??Inflammatory changes extends into the adjacent duodenum and gastric pylorus. ?? ADRENALS: ?? Normal. KIDNEYS/URINARY TRACT: ?? No identified significant cystic or solid masses. No visualized stones. No hydronephrosis or hydroureter. Symmetric enhancement. ? Urinary bladder is unremarkable. GI: ?? Oral contrast traverses the bowel loops up to the descending colon. ?? There is abnormal bowel wall thickening of the duodenum and gastric pylorus, consistent with acute gastroduodenitis, likely reactive to adjacent pancreatitis. ??No abnormal bowel dilatation to suggest obstruction. ?? Uncomplicated colonic diverticulosis. ??Normal appendix. PERITONEUM: ?? No ascites or free air. RETROPERITONEUM: ?? No mass or adenopathy. REPRODUCTIVE: ?? No significant abnormality. VASCULATURE: ?? Atherosclerotic disease in the aorta, aortic branches, and iliacs MUSCULOSKELETAL: ?? Multilevel degenerative changes are present without fracture. No concerning lesions are present. OTHER: ?? No other abnormality. IMPRESSION: ?? New peripancreatic fat stranding involving the head up to the mid body of the pancreas consistent with acute pancreatitis. Stable peripancreatic fluid collection at the tail of the pancreas. ??No suspicious pancreatic lesion or ductal dilatation. Abnormal wall thickening of the gastric pylorus and duodenum consistent with acute gastroduodenitis, likely reactive to the adjacent pancreatitis. ??No evidence of acute bowel obstruction. Partial visualization of the chest demonstrates new multiple bilateral pulmonary nodules mostly in tree-in-bud distribution and endobronchial filling defects likely mucous plugs or lesion. ??This may represent multifocal infectious process. ??New largest nodule in the lung base measures up to 2.4 cm, raising suspicion for underlying lung malignancy. ??Recommend further evaluation with dedicated CT chest with contrast for better comparison with outside hospital CT or recommend PET-CT. THIS IS AN ELECTRONICALLY VERIFIED FINAL REPORT 07/14/2024 9:30 PM - Electronically signed by ??Mandy Ng M.D. FT D: ??07/14/2024 9:27 PM T: Report ID: [id number] Reading Location: ??[id number] Procedure Note Mandy Hawthorne MD - 07/14/2024 EXAM DESCRIPTION: CT ABDOMEN PELVIS W CONTRAST REASON FOR STUDY: Epigastric pain, elevated lipase I woke up this morning and I had bad pain in my stomach. I startedthrowing up and now there is a severe pain in the top center of my stomach. Hx: leukemia TECHNIQUE: CT scan of the abdomen and pelvis performed with intravenousand without oral contrast using helical scanning technique with dynamic intravenous contrast injection. Reconstructed coronal and sagittal MPRimages reviewed. All images stored on PACS. Automated exposure control was usedas a dose optimization technique for this examination. CONTRAST TYPE/DOSE: 100mL of IOVERSOL 350 MG IODINE/ML INTRAVENOUSSYRINGE injected via intravenous COMPARISON: CT abdomen and pelvis 12/12/2021, outside hospital CT chest 05/28/2024 FINDINGS: LOWER CHEST: There are multiple new endobronchial fillingdefects which may represent mucous plugs or endobronchial lesions in thevisualized left lower lobe (3/-14). Multiple new bilateral pulmonary nodules mostlyin tree-in-bud distribution visualized in the lower lobes, suspicious for multifocal infectious process. New large irregular 2.4 x 1.4 cm nodule inthe right lung base (3/17) and 1.4 x 1.9 cm nodule in the left lung base raisethe suspicion for possible metastatic disease. LIVER: Normal size. No identified cystic or solid masses. GALLBLADDER: Surgically absent. BILE DUCTS: No intrahepatic or extrahepatic ductal dilatation. SPLEEN: Normal size. No focal lesions. PANCREAS: There is diffuse peripancreatic fat stranding predominantly inthe mid body and head of the pancreas consistent with acute pancreatitis. Redemonstration of peripancreatic fluid collection at the tail, unchanged.No suspicious pancreatic lesion or ductal dilatation. Inflammatory changes extends into the adjacent duodenum and gastric pylorus. ADRENALS: Normal. KIDNEYS/URINARY TRACT: No identified significant cystic or solid masses.No visualized stones. No hydronephrosis or hydroureter. Symmetricenhancement. Urinary bladder is unremarkable. GI: Oral contrast traverses the bowel loops up to the descending colon. There is abnormal bowel wall thickening of the duodenum and gastricpylorus, consistent with acute gastroduodenitis, likely reactive to adjacent pancreatitis. No abnormal bowel dilatation to suggest obstruction. Uncomplicated colonic diverticulosis. Normal appendix. PERITONEUM: No ascites or free air. RETROPERITONEUM: No mass or adenopathy. REPRODUCTIVE: No significant abnormality. VASCULATURE: Atherosclerotic disease in the aorta, aortic branches, and iliacs MUSCULOSKELETAL: Multilevel degenerative changes are present without fracture. No concerning lesions are present. OTHER: No other abnormality. IMPRESSION: New peripancreatic fat stranding involving the head up to the mid bodyof the pancreas consistent with acute pancreatitis. Stable peripancreatic fluid collection at the tail of the pancreas. No suspicious pancreatic lesion or ductal dilatation. Abnormal wall thickening of the gastric pylorus and duodenum consistentwith acute gastroduodenitis, likely reactive to the adjacent pancreatitis. No evidence of acute bowel obstruction. Partial visualization of the chest demonstrates new multiple bilateral pulmonary nodules mostly in tree-in-bud distribution and endobronchialfilling defects likely mucous plugs or lesion. This may represent multifocal infectious process. New largest nodule in the lung base measures up to2.4 cm, raising suspicion for underlying lung malignancy. Recommend further evaluation with dedicated CT chest with contrast for better comparisonwith outside hospital CT or recommend PET-CT. THIS IS AN ELECTRONICALLY VERIFIED FINAL REPORT 07/14/2024 9:30 PM - Electronically signed by Mandy Ng M.D. FT T: Report ID: [id number] Reading Location: [place] [address] PROCEDURES Final Resu lt * Lipid panel (07/14/2024 6:22 PM CDT) [...] BERNAL LAB BLOOD ORDERABLES Final R esult Performing Organization Address City/[facility]/ZIP Co de Phone Number ZULEMA [address] [address] * (ABNORMAL) Troponin T high-sensitivity 2-hour (07/14/2024 6:22 PM CDT) Trop T hs 137(H) <=22 ng/L Comment: Interpretive Data For further hscTnT resources including the diagnostic algorithm and an aid in interpretation, copy and paste this link: https://nrl.testcatalog.org/show/hsTrop Current Interpretive Data last revised 2020. Trop T hs pct delta 7 % [facility] Trop T hs interp Equivocal [facility] Blood 07/14/2024 6:22 PM CDT 07/14/2024 6:25 PM CDT us Willam Bryant MD LAB BLOOD ORDERABLES Final Result Performing Organization Address [facility] Co de Phone Number ZULEMA [address] [address] * ECG 12 lead (07/14/2024 4:24 PM CDT) Ventricular Rate EKG/Min 91 BPM [facility] Atrial Rate 91 BPM [facility] HI-Interval (MSEC) 132 ms [facility] QRS-Interval (MSEC) 78 ms [facility] QT-Interval (MSEC) 454 ms [facility] QTc 558 ms [facility] P [place] 83 degrees [facility] R [place] 95 degrees [facility] T [place] 78 degrees [facility] Diagnosis Sinus rhythm with occasional Premature ventricular complexes Rightward axis Anterior infarct , age undetermined Abnormal ECG When compared with ECG of 15-JUN-2024 17:29, Significant changes have occurred Confirmed by KATYA MARTINEZ M.D. ([id number]) on 07/15/2024 12:34:29 PM [facility] 07/14/2024 4:24 PM CDT 07/15/2024 12:34 PM CDT us James Bruno MD ECG ORDERABLES Final Result [facility] * eGFR (07/14/2024 4:22 PM CDT) eGFR >90 >=60 mL/min/1. 73 [...] interpretive data was last reviewed 2021. Blood 07/14/2024 4:22 PM CDT 07/14/2024 4:33 PM CDT us James Bruno MD LAB BLOOD ORDER SUBHA Final Result ZULEMA [address] [facility] Department [place] [address] * Differential, auto (07/14/2024 4:22 PM CDT) Pathologist [facility] Neutrophil abs 3.3 1.5 - 6.5 K/cumm Imm gran abs 0.0 0.0 - 0.1 K/cumm [facility] Lymphocyte abs 2.3 0.8 - 3.3 K/cumm [facility] Monocyte abs 0.6 0.2 - 0.8 K/cumm [facility] Eosinophil abs 0.1 0.0 - 0.5 K/cumm [facility] Basophil abs 0.0 0.0 - 0.1 K/cumm [facility] Neutrophil pct 51.9 % [facility] Comment: Interpretive Data Percent cell count reference ranges are not reported, since discordance with absolute values may lead to misinterpretation of CBC data. Current Interpretive Data was last revised on 2018. Imm gran pct 0.3 % [facility] Comment: Interpretive Data Percent cell count reference ranges are not reported, since discordance with absolute values may lead to misinterpretation of CBC data. Current Interpretive Data was last revised on 2018. Lymphocyte pct 37.2 % [facility] Comment: Interpretive Data Percent cell count reference ranges are not reported, since discordance with absolute values may lead to misinterpretation of CBC data. Current Interpretive Data was last revised on 2018. Monocyte pct 9.1 % [facility] Comment: Interpretive Data Percent cell count reference ranges are not reported, since discordance with absolute values may lead to misinterpretation of CBC data. Current Interpretive Data was last revised on 2018. Eosinophil pct 1.0 % [facility] Comment: Interpretive Data Percent cell count reference ranges are not reported, since discordance with absolute values may lead to misinterpretation of CBC data. Current Interpretive Data was last revised on 2018. Basophil pct 0.5 % [facility] Comment: Interpretive Data Percent cell count reference ranges are not reported, since discordance with absolute values may lead to misinterpretation of CBC data. Current Interpretive Data was last revised on 2018. Blood 07/14/2024 4:22 PM CDT 07/14/2024 4:33 PM CDT us James Bruno MD LAB BLOOD ORDER SUBHA Final Result Performing Organization Address City/[facility]/ZIP Co de Phone Number ZULEMA [address] [address] * Ethanol (07/14/2024 4:22 PM CDT) Ethanol <10 <=10 mg/dL Comment: Interpretive Data Legal limit of intoxication > or = 80 mg/dL Levels > or = 400 mg/dL are potentially TOXIC. Current interpretive data was last revised on 2019. Blood 07/14/2024 4:22 PM CDT 07/14/2024 4:33 PM CDT James Bruno MD LAB BLOOD ORDER SUBHA Final Result Performing Organization Address [facility] de Phone Number ZULEMA [address] [address] * (ABNORMAL) Troponin T high-sensitivity series (baseline, 2hr, 4hr, 6hr) (07/14/2024 4:22 PM CDT) Pathologist [facility] Trop T hs 128(H) <=22 ng/L Comment: Interpretive Data For further hscTnT resources including the diagnostic algorithm and an aid in interpretation, copy and paste this link: https://nrl.testcatalog.org/show/[email or web address] Current Interpretive Data last revised 2020. Blood 07/14/2024 4:22 PM CDT 07/14/2024 4:33 PM CDT James Bruno MD LAB BLOOD ORDER SUBHA Final Result Performing Organization Address City/[facility] Co de Phone Number ZULEMA [address] [address] * (ABNORMAL) Lipase (07/14/2024 4:22 PM CDT) Pathologist [facility] Lipase 501(H) 10 - 99 Units/L Blood (Blood, Venous) 07/14/2024 4:22 PM CDT 07/14/2024 4:33 PM CDT James Bruno MD LAB BLOOD ORDER SUBHA Final Result [facility] [address] [facility] Department [place] [address] * (ABNORMAL) Comprehensive metabolic panel (07/14/2024 4:22 PM CDT) Pathologist [facility] Sodium 136 135 - 145 mmol/L Potassium, pl 3.9 3.3 - 4.9 mmol/L [facility] Chloride 97 97 - 110 mmol/L [facility] CO2 28 22 - 32 mmol/L [facility] Anion gap 11 2 - 15 mmol/L [facility] BUN 13 6 - 25 mg/dL [facility] Creatinine 0.75(L) 0.80 - 1.30 mg/dL [facility] Glucose 155 70 - 199 mg/dL [facility] Comment: Interpretive Data Fasting glucose [...] interpretive data was last revised 2022. Calcium 9.7 8.5 - 10.3 mg/dL [facility] Bilirubin, total 0.3 0.1 - 1.2 mg/dL [facility] Protein, pl 7.9 6.5 - 8.5 g/dL [facility] Albumin 3.4(L) 3.5 - 5.0 g/dL [facility] Alk phos 210(H) 40 - 130 Units/L [facility] ALT 11 7 - 55 Units/L [facility] AST 20 10 - 50 Units/L [facility] Blood 07/14/2024 4:22 PM CDT 07/14/2024 4:33 PM CDT James Bruno MD LAB BLOOD ORDER SUBHA Final Result Performing Organization Address [facility] Co de Phone Number ZULEMA [address] [place] [address] * (ABNORMAL) CBC with auto differential (07/14/2024 4:22 PM CDT) Pathologist [facility] WBC 6.3 3.8 - 9.9 K/cumm Hgb 10.7(L) 13.0 - 17.5 g/dL [facility] Hct 33.0(L) 38.9 - 50.3 % [facility] Plt 473(H) 150 - 400 K/cumm [facility] MPV 10.3 9.1 - 12.3 fL [facility] RBC 3.31(L) 4.30 - 5.80 M/cumm [facility] MCV 99.7(H) 81.3 - 96.4 fL [facility] MCH 32.3 27.1 - 33.3 pg [facility] MCHC 32.4 32.3 - 35.7 g/dL [facility] RDW CV 15.5(H) 11.1 - 14.9 % [facility] RDW SD 56.2(H) 35.7 - 48.1 fL [facility] NRBC abs 0.02(H) 0.00 - 0.01 K/cumm [facility] Blood (Blood, Venous) 07/14/2024 4:22 PM CDT 07/14/2024 4:33 PM CDT James Bruno MD LAB BLOOD ORDER SUBHA Final Result Performing Organization Address City/[facility]/ZIP Co de Phone Number ZULEMA [address] [place] [address] documented in this encounter Visit Diagnoses Diagnosis Acute pancreatitis without infection or necrosis, unspecified pancreatitis type- Primary Acute pancreatitis without infection or necrosis, unspecified pancreatitis type Gastroduodenitis Unspecified gastritis and gastroduodenitis without mention of hemorrhage Pulmonary nodules Other diseases of lung, not elsewhere classified CHF (congestive heart failure) (CMS/HCC) (HCC) Congestive heart failure, unspecified COPD with Pulmonary emphysema (HCC) Other emphysema Type 2 diabetes mellitus (HCC) Tobacco abuse Tobacco use disorder Pulmonary nodules Other diseases of lung, not elsewhere classified Gastroduodenitis Unspecified gastritis and gastroduodenitis without mention of hemorrhage 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) History of leukemia Personal history of unspecified leukemia Troponin level elevated Other abnormal blood chemistry Abdominal pain Abdominal pain, unspecified site Moderate malnutrition (CMS/HCC) documented in this encounter Admitting Diagnoses Diagnosis Acute pancreatitis without infection or necrosis, unspecified pancreatitis type Pulmonary nodules Other diseases of lung, not elsewhere classified Gastroduodenitis Unspecified gastritis and gastroduodenitis without mention of hemorrhage documented in this encounter Administered Medications Inactive Administered Medications - up to 3 most recent administrations Medication Order MAR Action Action Date Dose Rate Site acyclovir (ZOVIRAX) capsule 400 mg 400 mg, oral, Every 8 hours, First dose on Sat07/15/24 at 0800, Indications: Chronic SuppressionIndications:Chronic Suppression Given 07/17/2024 9:41 AM CDT 400 mg Given 07/17/2024 12:12 AM CDT 400 mg Given 07/16/2024 3:28 PM CDT 400 mg albuterol HFA (PROVENTIL HFA,VENTOLIN HFA,PROAIR HFA) 90 mcg/actuation inhaler 2 puff 2 puff, inhalation, Every 6 hours 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 Do not swallow. Given 07/17/2024 8:38 AM CDT 2 puffs Given 07/16/2024 9:52 PM CDT 2 puffs Given 07/16/2024 9:19 AM CDT 2 puffs cefTRIAXone (ROCEPHIN) 2,000 mg/20 mL in sterile water (premix) 2,000 mg 2,000 mg, intravenous, at 240 mL/hr, Administer over 5 Minutes, Every 24 hours scheduled, First dose (after last modification) on Angy 07/16/24 at 1915, Indications: Pneumonia, Community AcquiredIndications:Pneumonia, Community Acquired Given 07/17/2024 9:42 AM CDT 2,000 mg 240 mL/hr Given 07/16/2024 8:28 PM CDT 2,000 mg 240 mL/hr cyanocobalamin (Vitamin B-12) tablet 1,000 mcg 1,000 mcg, oral, Every morning, First dose on Sat07/15/24 at 0900 Given 07/17/2024 9:41 AM CDT 1,000 mcg Given 07/16/2024 9:39 AM CDT 1,000 mcg Given 07/15/2024 10:27 AM CDT 1,000 mcg dextrose (D10W) 10% bolus 250 mL 250 mL, intravenous, at 1,000 mL/hr, Administer over 15 Minutes, Every 15 min PRN, blood glucose less than 70 mg/dL and UNABLE to swallow/take PO glucose/juice., Starting on Sat07/15/24 at 0324, After treatment for hypoglycemia, recheck BG followed by treatment every 15 minutes until the BG is greater than 100 mg/dL. Then check BG 1 hour post treatment. If BG is less than 100 mg/dL, repeat Q15 minute BG checks and treatment. Call MD for each episode of hypoglycemia., Indications: hypoglycemic disorderIndications:hypoglycem ic disorder dextrose (GLUTOSE) 40 % gel 15 g 15 g, oral, Every 15 min PRN, low blood sugar, blood glucose less than 70 mg/dL, Starting on Sat07/15/24 at 0324, If patient is alert and able to [...] Call MD for each episode of hypoglycemia. CUSTOMS VERIFIER STATES GLUTOSE-15 CONTAINS GLUCOSE 40% W/W (50% W/V), Indications: hypoglycemic disorderIndications:hypoglycem ic disorder enoxaparin (LOVENOX) syringe 60 mg 60 mg (rounded from 58.7 mg = 1 mg/kg ? 58.7 kg), subcutaneous, Every 12 hours scheduled, First dose on Sat07/15/24 at 2100, Indications: Venous ThrombosisIndications:Venous Thrombosis Given 07/17/2024 9:43 AM CDT 60 mg Right Lower Abdomen Given 07/16/2024 8:27 PM CDT 60 mg Le ft Lower Abdomen Given 07/16/2024 3:19 PM CDT 60 mg Le ft Upper Abdomen ethambutoL (MYAMBUTOL) tablet 1,200 mg 1,200 mg, oral, Daily, First dose on Sat07/15/24 at 0900, Indications: MycobacteriosisIndications:Mycobacteriosis Given 07/17/2024 9:41 A M CDT 1,200 mg Given 07/16/2024 9:39 AM CDT 1,200 mg Given 07/15/2024 10:29 AM CDT 1,200 mg fluticasone propionate (FLONASE) 50 mcg/actuation nasal spray 1 spray 1 spray, each nostril, Daily, First dose on Sat07/15/24 at 1200 Given 07/17/2024 9:43 AM CDT 1 spray Given 07/16/2024 9:00 AM CDT 1 spray Given 07/15/2024 12:03 PM CDT 1 spray gabapentin (NEURONTIN) capsule 300 mg 300 mg, oral, 4 times daily, First dose on Sat07/15/24 at 0800 Given 07/17/2024 12:31 PM CDT 300 mg Given 07/17/2024 9:41 AM CDT 300 mg Given 07/16/2024 8:26 PM CDT 300 mg glucagon injection 1 mg 1 mg, intramuscular, Every 30 min PRN, low blood sugar, blood glucose less than 70 mg/dL AND no IV access AND unable to take PO glucose/juice., Starting on Sat07/15/24 at 0324, After Glucagon is administered, position patient on [...] mL SWFI. Use immediately following reconstitution. guaiFENesin (ROBITUSSIN) 20 mg/mL oral liquid 200 mg 200 mg, oral, Every 4 hours PRN, cough, congestion, Starting on Sat07/15/24 at 1129 Given 07/17/2024 9:40 AM C DT 200 mg Given 07/16/2024 3:19 PM CDT 200 mg guaiFENesin ER (MUCINEX) extended release tablet 600 mg 600 mg, oral, 2 times daily, First dose on Sat07/17/24 at 1000, Do not crush, chew, cut, dissolve, open or otherwise manipulate tablet/capsule. Given 07/17/2024 9:41 AM CDT 600 mg HYDROmorphone (DILAUDID) injection 0.5 mg 0.5 mg, intravenous, Administer over 2 Minutes, Every 3 hours PRN, 1st line for pain, Starting on Sat07/15/24 at 0200, For 1 day Given 07/15/2024 3:10 AM CDT 0.5 mg HYDROmorphone (DILAUDID) injection 0.5 mg 0.5 mg, intravenous, Administer over 2 Minutes, Every 4 hours PRN, 2nd line for pain, Starting on Sat07/15/24 at 0720, This is 2nd line. Should be getting oxycodone 1st line before receiving IV dilaudid. Given 07/16/2024 3:48 AM CDT 0.5 mg Given 07/15/2024 8:33 PM CDT 0.5 mg Given 07/15/2024 11:43 AM CDT 0.5 mg insulin lispro (HumaLOG, ADMELOG) 100 unit/mL injection 0-5 Units 0-5 Units, subcutaneous, Every 4 hours scheduled, First dose on Sat07/15/24 at 0400, Blood glucose mg/dL: 149 or less: No insulin 150-199: add 1 unit 200-249: add 2 units 250-299: add 3 units 300-349: add 4 units and notify physician for adjustment of insulin orders. 350-399: add 5 units and notify physician for adjustment of insulin orders. Over 400: Notify physician for adjustment of insulin orders. Do NOT hold for NPO Status, Indications: Diabetes MellitusIndications:Diabet es Mellitus Given 07/17/2024 12:30 PM CDT 1 Units Left Lower Abdomen ioversoL (OPTIRAY 350) syringe 100 mL 100 mL, intravenous, Once in imaging, contrast, Starting on Sat07/14/24 at 2050, For 1 dose Contrast Given 07/14/2024 8:50 PM CDT 100 mL ioversoL (OPTIRAY 350) syringe 100 mL 100 mL, intravenous, Once in imaging, contrast, Starting on Sat07/14/24 at 2234, For 1 dose Contrast Given 07/14/2024 10:34 PM CDT 100 mL ipratropium-albuteroL (DUO-NEB) 0.5-2.5 mg/3 mL nebulizer solution 3 mL 3 mL, nebulization, Every 4 hours PRN (respite worker), wheezing, shortness of breath, Starting on Sat07/15/24 at 1204, Indications: Chronic Obstructive Pulmonary Disease with BronchospasmsIndications:C hronic Obstructive Pulmonary Disease with Bronchospasms Given 07/15/2024 8:54 PM CDT 3 mL Given 07/15/2024 12:38 PM CDT 3 mL ipratropium-albuteroL (DUO-NEB) 0.5-2.5 mg/3 mL nebulizer solution 3 mL 3 mL, nebulization, Every 6 hours (respite worker), First dose (after last modification) on Sat07/15/24 at 2215, Indications: Chronic Obstructive Pulmonary Disease with BronchospasmsIndications:Chronic Obstructive Pulmonary Disease with Bronchospasms Given 07/17/2024 1:00 PM CDT 3 mL Given 07/17/2024 8:38 AM CDT 3 mL Given 07/17/2024 3:53 AM CDT 3 mL Lactated Ringer's (LR) infusion 75 mL/hr, intravenous, Continuous, Starting on Sat07/15/24 at 0800, For 2 days 11 hours New Bag 07/16/2024 5:24 AM CDT 75 mL/hr 75 mL/hr New Bag 07/15/2024 1:42 PM CDT 75 mL/hr 75 mL/hr magnesium sulfate 4 g/100 mL in water (premix) 4 g 4 g, intravenous, Administer over 120 Minutes, Once, On Sat07/15/24 at 0900, For 1 dose New Bag 07/15/2024 10:32 AM CDT 4 g metoclopramide (REGLAN) 5 mg/mL injection 10 mg 10 mg, intravenous, Once, On Sat07/14/24 at 2106, For 1 dose Given 07/14/2024 9:19 PM CDT 10 mg montelukast (SINGULAIR) tablet 10 mg 10 mg, oral, Nightly, First dose on Sat07/15/24 at 2100 Given 07/16/2024 8:26 PM CDT 10 mg Given 07/15/2024 8:33 PM CDT 10 mg morphine injection 4 mg 4 mg, intravenous, Administer over 4 Minutes, Once, On Sat07/14/24 at 2106, For 1 dose Given 07/14/2024 9:20 PM CDT 4 mg mycophenolate mofetil (CELLCEPT) tablet 1,000 mg 1,000 mg, oral, 2 times daily, First dose on Sat07/15/24 at 0900, Do not crush, chew, cut, dissolve, open or otherwise manipulate tablet/capsule. Given 07/17/2024 9:41 AM CDT 1,000 mg Given 07/16/2024 8:26 PM CDT 1,000 mg Given 07/16/2024 9:39 AM CDT 1,000 mg nicotine (NICODERM CQ) 7 mg patch 24 hour 1 patch 1 patch, transdermal, Administer over 24 Hours, Daily PRN, smoking cessation, Starting on Sat07/15/24 at 0319, Apply a new patch every 24 hours to a clean, dry, hairless site on the upper arm or hip. Rotate site. Medication Applied 07/17/2024 9:42 AM CDT 1 patch Right Arm ondansetron (ZOFRAN) injection 4 mg 4 mg, intravenous, Administer over 2 Minutes, Once, On Sat07/14/24 at 1608, For 1 dose Given 07/14/2024 4:22 PM CDT 4 mg ondansetron (ZOFRAN) injection 4 mg 4 mg, intravenous, Administer over 2 Minutes, Every 12 hours PRN, nausea, vomiting, Starting on Sat07/15/24 at 0601, Indications: Nausea and VomitingIndications:Nausea and Vomiting oxyCODONE (ROXICODONE) tablet 5 mg 5 mg, oral, Every 4 hours PRN, 1st line for pain, Starting on Sat07/15/24 at 0721, Indications: PainIndications:Pain Given 07/17/2024 9:42 AM CDT 5 mg Given 07/16/2024 8:26 PM CDT 5 mg Given 07/16/2024 3:28 PM CDT 5 mg pantoprazole (PROTONIX) 40 mg in sodium chloride 0.9% 10 mL IV Syringe 40 mg, intravenous, at 300 mL/hr, Administer over 2 Minutes, Once, On Sat07/14/24 at 2341, For 1 dose, For IV administration, reconstitute 40 mg vial with 10 mL sodium chloride 0.9% for injection for a final concentration of 4 mg/mL, Indications: Treatment of Non-Bleeding Gastric DisorderIndications:Treatment of Non-Bleeding Gastric Disorder Given 07/14/2024 11:54 PM CDT 40 mg 300 mL/hr pantoprazole (PROTONIX) 40 mg in sodium chloride 0.9% 10 mL IV Syringe 40 mg, intravenous, at 300 mL/hr, Administer over 2 Minutes, 2 times daily, First dose on Sat07/15/24 at 0900, For IV administration, reconstitute 40 mg vial with 10 mL sodium chloride 0.9% for injection for a final concentration of 4 mg/mL, Indications: Treatment of Non-Bleeding Gastric DisorderIndications:Treatment of Non-Bleeding Gastric Disorder Given 07/17/2024 9:40 AM CDT 40 mg 3 00 mL/hr Given 07/16/2024 8:29 PM CDT 40 mg 300 mL/hr Given 07/16/2024 9:37 AM CDT 40 mg 300 mL/hr ramelteon (ROZEREM) tablet 8 mg 8 mg, oral, Nightly PRN, sleep, Starting on Sat07/16/24 at 2149, Indications: Sleep-Onset InsomniaIndications:Sleep-Onset Insomnia Given 07/16/2024 10:09 PM CDT 8 mg sodium chloride (OCEAN) 0.65 % nasal spray 1 spray 1 spray, each nostril, 2 times daily PRN, congestion, rhinitis, Starting on Sat07/15/24 at 1129 sodium chloride 0.9% bolus 1,000 mL 1,000 mL, intravenous, at 1,000 mL/hr, Administer over 1 Hours, Once, On Sat07/14/24 at 2106, For 1 dose New Bag 07/14/2024 9:19 PM CDT 1,000 mL 1000 mL/hr sodium chloride 0.9% bolus 1,000 mL 1,000 mL, intravenous, at 1,000 mL/hr, Administer over 1 Hours, Once, On Sat07/14/24 at 2344, For 1 dose New Bag 07/14/2024 11:53 PM CDT 1,000 mL 1000 mL/hr sodium chloride 0.9% flush 0.5-20 mL 0.5-20 mL, intra-catheter, Every 8 hours scheduled, First dose on Sat07/15/24 at 0600, Flush volume based on line type and size. Given 07/17/2024 6:26 AM CDT 10 mL Given 07/16/2024 8:29 PM CDT 10 mL Given 07/16/2024 2:00 PM CDT 10 mL sodium chloride 0.9% flush 0.5-20 mL 0.5-20 mL, intra-catheter, As needed, line care, Starting on Sat07/15/24 at 0157, Flush volume based on line type and size. Flush before and after each use. sodium chloride 0.9% infusion 75 mL/hr, intravenous, Continuous, Starting on Sat07/15/24 at 0245, For 10 hours New Bag 07/15/2024 2:32 AM CDT 75 mL/hr 75 mL/hr sodium chloride 7 % nebulizer solution 1.5 mL 1.5 mL, nebulization, 2 times daily (respite worker), First dose on Sat07/17/24 at 1000 tacrolimus immediate-release capsule 0.5 mg 0.5 mg, oral, Every other day, First dose on Sat07/15/24 at 0900, Avoid grapefruit juice Given 07/17/2024 9:41 AM CDT 0.5 mg Given 07/15/2024 10:31 AM CDT 0.5 mg tiotropium bromide (SPIRIVA RESPIMAT) 2.5 mcg/actuation inhaler 2 puff 2 puff, inhalation, Daily (respite worker), First dose on Sat07/15/24 at 0900, On hold since Sat07/15/2024 at 2132 until manually unheld Given 07/15/2024 10:57 AM CDT 2 puffs voriCONAZOLE (VFEND) tablet 200 mg 200 mg, oral, 2 times daily, First dose on Sat07/15/24 at 0900, Indications: Prophylaxis, MedicalIndications:Prophylaxis, Medical Given 07/17/2024 9:41 AM CDT 200 mg Given 07/16/2024 8:27 PM CDT 200 mg Given 07/16/2024 3:19 PM CDT 200 mg documented in this encounter Discontinued Medications Medication Sig Discontinue Reason Start Date End Da te pantoprazole DR (PROTONIX) 40 mg EC tabletIndications:Stres s Ulcer Prophylaxis Take 1 tablet (40 mg total) by mouth 2 (two) times a day for 120 doses 03/02/2024 07/17/2024 diphenhydrAMINE-acetami nophen (TYLENOL PM) 25-500 mg tablet Take 2 tablets by mouth nightly as needed for sleep Stop Taking at Discharge 07/17/2024 insulin lispro (HumaLOG, ADMELOG) 100 unit/mL pen for injection Inject 5-10 Units under the skin 3 (three) times a day before meals INJECT 5-10 UNITS TID WITH MEALS PLUS SLIDING SCALE. TDD OF 35 UNITS. Stop Taking at Discharge 07/17/2024 insulin glargine (LANTUS, SEMGLEE) 100 unit/mL vial for injectionIndications:Di abetes Mellitus Inject 5 Units under the skin nightly Stop Taking at Discharge 06/24/2024 07/17/2024 documented as of this encounter Active and Recently Administered Medications Times are shown in CDT. Scheduled Medication Order 07/15/2024 07/16/2024 07/17/2024 acyclovir (ZOVIRAX) capsule 400 mg 400 mg, oral, Every 8 hours, First dose on Sat07/15/24 at 0800, Indications: Chronic Suppression 1132 (Not Given - Provider: Arleen Loving RN - Reason: Medication not available)1614 (Given - Provider: Arleen Loving RN) 0221 (Given - Provider: Neil Lucas RN)0939 (Given - Provider: Chelsey Varner, BECKI)1528 (Given - Provider: Chelsey Varner, BECKI) 0012 (Given - Provider: Neil Lucas RN)0941 (Given - Provider: Magdalena Lopez, BECKI) azithromycin (ZITHROMAX) tablet 250 mg 250 mg, oral, Daily, First dose on Sat07/15/24 at 0900, For 352 days, Indications: Mycobacteriosis 1027 (Given - Provider: Arleen Loving RN) 0939 (Given - Provider: Chelsey Varner, BECKI) 0941 (Given - Provider: Magdalena Lopez RN) budesonide-formoteroL (SYMBICORT) 160-4.5 mcg/actuation inhaler 2 puff 2 puff, inhalation, 2 times daily (respite worker), First dose on Sat07/15/24 at 0800, Rinse mouth with water after use. Do not swallow. 0822 (Not Given - Provider: Elle Martin RRT - Reason: Medication not available)1056 (Given - Provider: Elle Martin, BRANDEN)2050 (Given - Provider: Cha Burch, BRANDEN) 09 (Given - Provider: Haritha Bryson, BRANDEN)215 (Given - Provider: Cielo Ocampo, BRANDEN) 0838 (Given - Provider: Pat Busby, ADVANCED PRACTICE PROVIDER) cefTRIAXone (ROCEPHIN) 2,000 mg/20 mL in sterile water (premix) 2,000 mg 2,000 mg, intravenous, at 240 mL/hr, Administer over 5 Minutes, Every 24 hours scheduled, First dose (after last modification) on Angy 07/16/24 at 1915, Indications: Pneumonia, Community Acquired 2027 (Given - Provider: Neil Lucas RN) 0942 (Given - Provider: Magdalena Lopez RN) cyanocobalamin (Vitamin B-12) tablet 1,000 mcg 1,000 mcg, oral, Every morning, First dose on Sat07/15/24 at 0900 1027 (Given - Provider: Arleen Loving RN) 0939 (Given - Provider: Chelsey Varner RN) 0941 (Given - Provider: Magdalena Lopez RN) enoxaparin (LOVENOX) syringe 60 mg 60 mg (rounded from 58.7 mg = 1 mg/kg ? 58.7 kg), subcutaneous, Every 12 hours scheduled, First dose on Sat07/15/24 at 2100, Indications: Venous Thrombosis 2032 (Given - Provider: Neil Lucas, BECKI) 151 (Given - Provider: Chelsey Varner RN)2026 (Given - Provider: Neil Lucas RN) 0943 (Given - Provider: Magdalena Lopez RN) ethambutoL (MYAMBUTOL) tablet 1,200 mg 1,200 mg, oral, Daily, First dose on Sat07/15/24 at 0900, Indications: Mycobacteriosis 1029 (Given - Provider: Arleen Loving RN) 0939 (Given - Provider: Chelsey Varner RN) 0941 (Given - Provider: Magdalena Lopez RN) fluticasone propionate (FLONASE) 50 mcg/actuation nasal spray 1 spray 1 spray, each nostril, Daily, First dose on Sat07/15/24 at 1200 1203 (Given - Provider: Arleen Loving RN) 09 (Given - Provider: Chelsey Varner RN) 0943 (Given - Provider: Magdalena Lopez RN) gabapentin (NEURONTIN) capsule 300 mg 300 mg, oral, 4 times daily, First dose on Sat07/15/24 at 0800 1027 (Given - Provider: Arleen Loving RN)1203 (Given - Provider: Arleen Loving RN)1710 (Given - Provider: Arleen Loving RN)2033 (Given - Provider: Neil Lucas RN) 0939 (Given - Provider: Chelsey Varner RN)1519 (Given - Provider: Chelsey Varner RN)1734 (Given - Provider: Chelsey Varner, BECKI)202 (Given - Provider: Neil Lucas RN) 0941 (Given - Provider: Magdalena Lopez, BECKI)1231 (Given - Provider: Magdalena Lopez, BECKI) guaiFENesin ER (MUCINEX) extended release tablet 600 mg 600 mg, oral, 2 times daily, First dose on Sat07/17/24 at 1000, Do not crush, chew, cut, dissolve, open or otherwise manipulate tablet/capsule. 0941 (Given - Provider: Magdalena Lopez RN) insulin lispro (HumaLOG, ADMELOG) 100 unit/mL injection 0-5 Units 0-5 Units, subcutaneous, Every 4 hours scheduled, First dose on Sat07/15/24 at 0400, Blood glucose mg/dL: 149 or less: No insulin 150-199: add 1 unit 200-249: add 2 units 250-299: add 3 units 300-349: add 4 units and notify physician for adjustment of insulin orders. 350-399: add 5 units and notify physician for adjustment of insulin orders. Over 400: Notify physician for adjustment of insulin orders. Do NOT hold for NPO Status, Indications: Diabetes Mellitus 0451 (Not Given - Provider: Matilde Olivares RN - Reason: Order parameters not met)1031 (Not Given - Provider: Arleen Loving RN - Reason: Order parameters not met)1133 (Not Given - Provider: Arleen Loving RN - Reason: Order parameters not met)1614 (Not Given - Provider: Arleen Loving RN - Reason: Order parameters not met)202 (Not Given - Provider: Neil Lucas RN - Reason: Order parameters not met - Comment: bs 90) 0000 (Not Given - Provider: Neil Lucas RN - Reason: Order parameters not met)0503 (Not Given - Provider: Neil Lucas RN - Reason: Order parameters not met - Comment: bs [phone] (Not Given - Provider: Chelsey Lori Liefer, RN - Reason: Order parameters not met)1520 (Not Given - Provider: Chelsey Varner RN - Reason: Order parameters not met)1735 (Not Given - Provider: Chelsey Varner RN - Reason: Order parameters not met)2019 (Not Given - Provider: Neil Lucas RN - Reason: Order parameters not met - Comment: bs 138) 0043 (Not Given - Provider: Neil Lucas RN - Reason: Order parameters not met - Comment: bs [phone] (Not Given - Provider: Neil Lucas RN - Reason: Order parameters not met - Comment: bs [phone] (Not Given - Provider: Magdalena Lopez RN - Reason: Order parameters not met)1230 (Given - Provider: Magdalena Lopez RN) ipratropium-albuteroL (DUO-NEB) 0.5-2.5 mg/3 mL nebulizer solution 3 mL 3 mL, nebulization, Every 6 hours (respite worker), First dose (after last modification) on Sat07/15/24 at 2215, Indications: Chronic Obstructive Pulmonary Disease with Bronchospasms 2131 (Hold - Provider: Shaye Talbert RRT - Reason: Contraindicated - Comment: pt given prn 2051) 0306 (Given - Provider: Shaye Talbert, BRANDEN)0919 (Given - Provider: Haritha Bryson, CUSTOMER AGENT)1504 (Given - Provider: Haritha Bryson, BRANDEN)2151 (Given - Provider: Cielo Ocampo, BRANDEN) 0353 (Given - Provider: Cielo Ocampo RRT)0838 (Given - Provider: Pat Busby CRTT)1300 (Given - Provider: Pat Busby CRTT) magnesium sulfate 4 g/100 mL in water (premix) 4 g (COMPLETED) 4 g, intravenous, Administer over 120 Minutes, Once, On Sat07/15/24 at 0900, For 1 dose 1032 (New Bag - Provider: Arleen Loving, BECKI) montelukast (SINGULAIR) tablet 10 mg 10 mg, oral, Nightly, First dose on Sat07/15/24 at 2100 2032 (Given - Provider: Neil Lucas RN) 2025 (Given - Provider: Neil Lucas RN) mycophenolate mofetil (CELLCEPT) tablet 1,000 mg 1,000 mg, oral, 2 times daily, First dose on Sat07/15/24 at 0900, Do not crush, chew, cut, dissolve, open or otherwise manipulate tablet/capsule. 1029 (Given - Provider: Arleen Loving RN)2032 (Given - Provider: Neil Lucas RN) 0939 (Given - Provider: Chelsey Varner, BECKI)2025 (Given - Provider: Neil Lucas RN) 0941 (Given - Provider: Magdalena Lopez RN) pantoprazole (PROTONIX) 40 mg in sodium chloride 0.9% 10 mL IV Syringe 40 mg, intravenous, at 300 mL/hr, Administer over 2 Minutes, 2 times daily, First dose on Sat07/15/24 at 0900, For IV administration, reconstitute 40 mg vial with 10 mL sodium chloride 0.9% for injection for a final concentration of 4 mg/mL, Indications: Treatment of Non-Bleeding Gastric Disorder 1030 (Given - Provider: Arleen Loving RN)2031 (Given - Provider: Neil Lucas RN) 0937 (Given - Provider: Chelsey Varner, BECKI)2028 (Given - Provider: Neil Lucas RN) 0940 (Given - Provider: Magdalena Lopez RN) sodium chloride 0.9% flush 0.5-20 mL 0.5-20 mL, intra-catheter, Every 8 hours scheduled, First dose on Sat07/15/24 at 0600, Flush volume based on line type and size. 0600 (Due)1602 (Given - Provider: Arleen Loving RN)2041 (Given - Provider: Neil Lucas RN) 0524 (Given - Provider: Neil Lucas RN)1400 (Given - Provider: Chelsey Varner, BECKI)2028 (Given - Provider: Neil Lucas RN) 0626 (Given - Provider: Neil Lucas RN)1243 (Not Given - Provider: Magdalena Lopez, BECKI - Reason: Loss of IV access - Comment: Discharge) sodium chloride 7 % nebulizer solution 1.5 mL 1.5 mL, nebulization, 2 times daily (respite worker), First dose on Sat07/17/24 at 1000 1001 (Not Given - Provider: Shaye Yarbrough RRT - Reason: Contraindicated - Comment: pt already received bronchodilator to accompany this treatment this AM ; will administer @ next regularly scheduled due time with bronchodilator) tacrolimus immediate-release capsule 0.5 mg 0.5 mg, oral, Every other day, First dose on Sat07/15/24 at 0900, Avoid grapefruit juice 1031 (Given - Provider: Arleen Loving RN) 0941 (Given - Provider: Magdalena Lopez RN) tiotropium bromide (SPIRIVA RESPIMAT) 2.5 mcg/actuation inhaler 2 puff 2 puff, inhalation, Daily (respite worker), First dose on Sat07/15/24 at 0900, On hold since Sat07/15/2024 at 2132 until manually unheld 0823 (Not Given - Provider: Elle Martin RRT - Reason: Medication not available)1057 (Given - Provider: Elle Martin, BRANDEN)2132 (Held by Provider - Provider: Michael Mckeon MD - Reason: Other - Comment: Scheduled duonebs;spiriva contraindicated) 0900 (Dose Auto Held - Provider: Michael Mckeon MD) 0900 (Dose Auto Held - Provider: Michael Mckeon MD)1817 (Unheld by Provider - Provider: Automatic Discharge Provider) voriCONAZOLE (VFEND) tablet 200 mg 200 mg, oral, 2 times daily, First dose on Sat07/15/24 at 0900, Indications: Prophylaxis, Medical 1031 (Given - Provider: Arleen Loving RN)2033 (Given - Provider: Neil Lucas RN) 1519 (Given - Provider: Chelsey Varner RN)2027 (Given - Provider: Neil Lucas RN) 0941 (Given - Provider: Magdalena Lopez RN) Continuous Medication Order 07/15/2024 07/16/2024 07/17/2024 Lactated Ringer's (LR) infusion 75 mL/hr, intravenous, Continuous, Starting on Sat07/15/24 at 0800, For 2 days 11 hours 0800 (Due)1342 (New Bag - Provider: Arleen Loving RN) 0524 (New Bag - Provider: Neil Lucas RN) 1817 (Due: Stopped) sodium chloride 0.9% infusion (CANCELED) 75 mL/hr, intravenous, Continuous, Starting on Sat07/15/24 at 0245, For 10 hours 0232 (New Bag - Provider: Matilde Olivares RN)1049 (Stopped - Provider: Arleen Loving RN) PRN Medication Order 07/15/2024 07/16/2024 07/17/2024 albuterol HFA (PROVENTIL HFA,VENTOLIN HFA,PROAIR HFA) 90 mcg/actuation inhaler 2 puff 2 puff, inhalation, Every 6 hours PRN (respite worker), wheezing, Starting on Sat07/15/24 at 0329 1742 (Given - Provider: Elle Martin, CUSTOMER AGENT) dextrose (D10W) 10% bolus 250 mL(Linked Group 1) 250 mL, intravenous, at 1,000 mL/hr, Administer over 15 Minutes, Every 15 min PRN, blood glucose less than 70 mg/dL and UNABLE to swallow/take PO glucose/juice., Starting on Sat07/15/24 at 0324, After treatment for hypoglycemia, recheck BG followed by treatment every 15 minutes until the BG is greater than 100 mg/dL. Then check BG 1 hour post treatment. If BG is less than 100 mg/dL, repeat Q15 minute BG checks and treatment. Call MD for each episode of hypoglycemia., Indications: hypoglycemic disorder 1132 (Not Given - Provider: Arleen Loving RN - Reason: Other - Comment: pt drank juice) dextrose (GLUTOSE) 40 % gel 15 g(Linked Group 1) 15 g, oral, Every 15 min PRN, low blood sugar, blood glucose less than 70 mg/dL, Starting on Sat07/15/24 at 0324, If patient is alert and able to [...] Call MD for each episode of hypoglycemia. CUSTOMS VERIFIER STATES GLUTOSE-15 CONTAINS GLUCOSE 40% W/W (50% W/V), Indications: hypoglycemic disorder 1132 (See Alternative - Provider: Arleen Loving RN) glucagon injection 1 mg 1 mg, intramuscular, Every 30 min PRN, low blood sugar, blood glucose less than 70 mg/dL AND no IV access AND unable to take PO glucose/juice., Starting on Sat07/15/24 at 0324, After Glucagon is administered, position patient on [...] mL SWFI. Use immediately following reconstitution. guaiFENesin (ROBITUSSIN) 20 mg/mL oral liquid 200 mg 200 mg, oral, Every 4 hours PRN, cough, congestion, Starting on Sat07/15/24 at 1129 1519 (Given - Provider: Chelsey Varner RN) 0940 (Given - Provider: Magdalena Lopez RN) HYDROmorphone (DILAUDID) injection 0.5 mg (CANCELED) 0.5 mg, intravenous, Administer over 2 Minutes, Every 3 hours PRN, 1st line for pain, Starting on Sat07/15/24 at 0200, For 1 day 0310 (Given - Provider: Matilde Olivares RN) HYDROmorphone (DILAUDID) injection 0.5 mg 0.5 mg, intravenous, Administer over 2 Minutes, Every 4 hours PRN, 2nd line for pain, Starting on Sat07/15/24 at 0720, This is 2nd line. Should be getting oxycodone 1st line before receiving IV dilaudid. 1143 (Given - Provider: Arleen Loving, BECKI)2032 (Given - Provider: Neil Lucas, BECKI) 347 (Given - Provider: Neil Lucas, BECKI) ipratropium-albuteroL (DUO-NEB) 0.5-2.5 mg/3 mL nebulizer solution 3 mL (CANCELED) 3 mL, nebulization, Every 4 hours PRN (respite worker), wheezing, shortness of breath, Starting on Sat07/15/24 at 1204, Indications: Chronic Obstructive Pulmonary Disease with Bronchospasms 1238 (Given - Provider: Elle Martin, BRANDEN)2053 (Given - Provider: Cha Burch, BRANDEN) nicotine (NICODERM CQ) 7 mg patch 24 hour 1 patch 1 patch, transdermal, Administer over 24 Hours, Daily PRN, smoking cessation, Starting on Sat07/15/24 at 0319, Apply a new patch every 24 hours to a clean, dry, hairless site on the upper arm or hip. Rotate site. 0942 (Medication Applied - Provider: Magdalena Lopez RN)1416 (Due: Medication Removed - Provider: Automatic Discharge Provider - Comment: Time automatically adjusted from order being discontinued) ondansetron (ZOFRAN) injection 4 mg 4 mg, intravenous, Administer over 2 Minutes, Every 12 hours PRN, nausea, vomiting, Starting on Sat07/15/24 at 0601, Indications: Nausea and Vomiting oxyCODONE (ROXICODONE) tablet 5 mg 5 mg, oral, Every 4 hours PRN, 1st line for pain, Starting on Sat07/15/24 at 0721, Indications: Pain 0949 (Given - Provider: Chelsey Varner, BECKI)1528 (Given - Provider: Chelsey Varner RN)2025 (Given - Provider: Neil Lucas, BECKI) 0942 (Given - Provider: Magdalena Lopez, BECKI) ramelteon (ROZEREM) tablet 8 mg 8 mg, oral, Nightly PRN, sleep, Starting on Sat07/16/24 at 2149, Indications: Sleep-Onset Insomnia 2208 (Given - Provider: Neil Lucas RN) sodium chloride (OCEAN) 0.65 % nasal spray 1 spray 1 spray, each nostril, 2 times daily PRN, congestion, rhinitis, Starting on Sat07/15/24 at 1129 sodium chloride 0.9% flush 0.5-20 mL 0.5-20 mL, intra-catheter, As needed, line care, Starting on Sat07/15/24 at 0157, Flush volume based on line type and size. Flush before and after each use. Linked Groups Order Group 1: dextrose (GLUTOSE) 40 % gel 15 gJump to med 15 g, oral, Every 15 min PRN, low blood sugar, blood glucose less than 70 mg/dL, Starting on Sat07/15/24 at 0324, If patient is alert and able to [...] Call MD for each episode of hypoglycemia. CUSTOMS VERIFIER STATES GLUTOSE-15 CONTAINS GLUCOSE 40% W/W (50% W/V), Indications: hypoglycemic disorder Or dextrose (D10W) 10% bolus 250 mLJump to med 250 mL, intravenous, at 1,000 mL/hr, Administer over 15 Minutes, Every 15 min PRN, blood glucose less than 70 mg/dL and UNABLE to swallow/take PO glucose/juice., Starting on Sat07/15/24 at 0324, After treatment for hypoglycemia, recheck BG followed [...] Count Last Ordered Date First Ordered Date sodium chloride 7 % nebulize r solution 1.5 mL 1 07/17/2024 cefTRIAXone (ROCEPHIN) 1,000 mg/10 mL in sterile water (premix) 1,000 mg 1 07/16/2024 albuterol HFA (PROVENTIL HFA ,VENTOLIN HFA,PROAIR HFA) 90 mcg/actuation inhaler 2 puff 1 07/15/2024 dextrose (D10W) 10% bolus 250 mL 1 07/15/20 dextrose (GLUTOSE) 40 % gel 15 g 1 07/15/20 zptysexpqet-vjqblsptk-pmafyj er (TRELEGY ELLIPTA) 200-62.5-25 mcg inhaler 1 puff 1 07/15/2024 glucagon injection 1 mg 1 07/15/2024 insulin glargine (LANTUS, SE MGLEE) 100 unit/mL injection 6 Units 1 07/15/2024 magnesium sulfate 2 g/50 mL in water (premix) 2 g 1 07/15/2024 ondansetron (ZOFRAN) injection 4 mg 2 07/15 sodium chloride (OCEAN) 0.65 % nasal spray 1 spray 1 07/15/2024 sodium chloride 0.9% flush 0.5-20 mL 1 06/19 HYDROmorphone (DILAUDID) injection 0.5 mg 1 07/14/2024 Lab Orders Without Results Count Last Ordered D ate First Ordered Date POCT GLUCOSE DEVICE 1 07/15/2024 Consult Count Last Ordered Date First Orde red Date IP CONSULT TO VASCULAR ACCESS TEAM 1 2023 IP CONSULT TO INFECTIOUS DISEASES 1 024 IV Count Last Ordered Date First Orde red Date SALINE LOCK IV 1 07/14/2024 Admission Count Last Ordered Date First Orde red Date ADMIT TO INPATIENT 1 07/15/2024 Discharge Count Last Ordered Date First Orde red Date DISCHARGE PATIENT 1 07/17/2024 CORE MEASURES Count Last Ordered Date First Ord ered Date REASON FOR NO VTE PROPHYLAXIS AT ADMISSION 1 07/15/2024 documented in this encounter Additional Health Concerns Infection Onset Date 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 documented as of this encounter Care Teams Flour Blender Helper Relationship Specialty Start Date End Date Kirt Lindsay DO PCP - General Internal Medicine 02/02/21 Josué Del Valle MD PhD Medical Oncologist/Seafood Team Member Medical Oncology 08/26/19 Cal Carranza DO [address] [facility] [address] [place] [id number] Horn Player Internal Medicine 06/12/23 Halie Khan MD [address] [facility] [address] [place] [address] Senior Medical Transcriptionist Critical Care Med 06/12/23 Wilfred Kinsey MD [address] [address] Consulting Physician Gastroenterology 03/02/24 documented as of this encounter
--- OUTSIDE RECORDS SUMMARY | 2024-11-22 10:47 | XMS_ITS | Encounter Summary ---
Author Organization [facility] Address [address] [place] [address] Phone Care Team Providers Care Lumber Driver Name Role Phone Josué Del Valle MD PhD Unavailable Kirt Lindsay DO Primary Care Provider [phone] Cal Carranza DO Unavailable [phone] Halie Khan MD Unavailable [phone] Wilfred Kinsey MD Unavailable Encounter Details Date Type Department Care Team (Late st Contact Info) Description 07/02/2024 Telephone [facility] Bone Marrow Transplant [address] [facility] Advanced Medicine 7th Floor, [place] [address] Josué Del Valle MD PhD [address]ARR[address]ANS[address] [place] [address] Social History Tobacco Use Types Packs/Day Years Used Date Smoking Tobacco: Some Days Cigarettes 0.5 40 Started: 1984 Smokeless Tobacco: Never Comments:pt states tried to quit [facility] Utilities Answer Date Recorded In the past [...] week 06/16/2024 How often do you attend baptism or religion serv ices? Never 06/16/2024 Do you belong [...] any time in the past 12 m [facility], were you homeless or living in a fci (including now)? No 06/16/2024 Personal Safety Answer Date Recorded Have you ever been in or are you currently in a harmful physical or emotional relationship or is someone making you feel afraid or unsafe? Denies 06/15/2024 Sex and Gender Information Value Date Recorded Sex Assigned at Not on file Legal Sex Male 10:48 AM OUTDOOR ADVENTURE GUIDES Gender Identity Not on file Sexual Orientation Not on file documented as of this encounter Miscellaneous Notes * Telephone Encounter - Josué Rice RN - 07/02/2024 8:24 AM CDT Talked with patients friend lissy, patient unable to get out of bed with temps and chills, advised to call ambulance to get to ED. 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
--- OUTSIDE RECORDS SUMMARY | 2024-11-22 10:47 | XMS_ITS | Encounter Summary ---
Author Organization [facility] Address [address] [place] [address] Phone Care Team Providers Care Skidder Operator Name Role Phone Josué Del Valle MD PhD Unavailable [phone] Kirt Lindsay DO Primary Care Provider [phone] Cal Carranza DO Unavailable [phone] Halie Khan MD Unavailable [phone] Wilfred Kinsey MD Unavailable Encounter Details Date Type Department Care Team (Late st Contact Info) Description 06/25/2024 Telephone [facility] Bone Marrow Transplant [address] [facility] Advanced Medicine 7th Floor, [place] [address] Josué Rice RN Social History Tobacco Use Types Packs/Day Years Used Date Smoking Tobacco: Some Days Cigarettes 0.5 40 Started: 1985 Smokeless Tobacco: Never Comments:pt states tried to quit [facility] Utilities Answer Date Recorded In the past 12 months has th [employer] electric, gas, oil, or water company threatened [...] week 06/16/2024 How often do you attend confucianist or sikh serv ices? Never 06/16/2024 Do you belong [...] place to sleep or slept in a long-term (including now)? No 03/30/2024 Housing Stability Vital Sign Answer [place] Recorded In the last 12 months, was t here a time when you were not able to pay the mortgage or rent on time? No 06/16/2024 In the past 12 months, how m any times have you moved where you were living? 0 06/16/2024 At any time in the past 12 m [facility], were you homeless or living in a long-term (including now)? No 06/16/2024 Personal Safety Answer Date Recorded Have you ever been in or are you currently in a harmful physical or emotional relationship or is someone making you feel afraid or unsafe? 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 Contact: Completed telephone contact Discharge Planning Review Care Coordination Note Reviewed: Yes New equipment: n/a New Treatment: na Patient received growth factor? No growth factor ordered. Appointments reviewed with patient. Next return office visit: Eligible for TCV (within 14 days). Issues with: Side Effects: no complaints Discharge Planning: No Finances: Financial toxicitiy: Denied Medication Review completed with Friend Received all discharge medications: No, Describe going to pear picker the Midocin from local pharmacy and gargalin today. Changes include: no change Antiemetics available: NA research study with an oral medication: : N/A Current Outpatient Medications Medication Sig Dispense Refill [...] total) by mouth daily 30 tablet 6 cholecalciferol (VITAMIN D-3) 25 mcg (1,000 unit) tablet Take 2 tablets (2,000 Units total) by mouth every morning cyanocobalamin (Vitamin B-12) 1,000 mcg tablet Take 1 tablet (1,000 mcg total) by mouth every morning diphenhydrAMINE-acetaminophen (TYLENOL PM) 25-500 mg tablet Take 2 tablets by mouth nightly as needed for sleep flash glucose scanning reader (FreeStyle Evaristo 2 [place]) [facility] Use to test blood glucose continuously 1 each 1 flash glucose sensor (FreeStyle Evaristo 2 Sensor) kit Change sensor every 14 days 2 kit 0 abkkillzmli-yglgxvbqb-yshhzgnk (Trelegy Ellipta) 200-62.5-25 mcg inhaler Inhale 1 puff daily gabapentin (NEURONTIN) 300 mg capsule TAKE ONE CAPSULE BY MOUTH FOUR TIMES DAILY @ 0MB-5NT-0GB-9PM 120 capsule 11 guaiFENesin ER (MUCINEX) 600 [...] mg total) by mouth every other day minocycline (MINOCIN,DYNACIN) 100 mg capsule Take 2 capsules (200 mg total) by mouth 2 (two) times a day for 7 doses 7 capsule 0 montelukast (SINGULAIR) 10 mg tablet Take [...] a dayfor 120 doses 60 tablet 1 sucralfate (CARAFATE) suspension 1 gram/10 mL Take 10 mL (1 g total) by mouth 4 (four) times a day (with meals and nightly) for 240 doses 1200 mL 1 tacrolimus 0.5 mg immediate-release capsule Take 1 capsule (0.5 mg total) by mouth every other day voriCONAZOLE (VFEND) 200 mg tablet TAKE ONE TABLET BY MOUTH TWICE DAILY 60 tablet 11 Xarelto 20 mg tablet TAKE ONE TABLET BY MOUTH DAILY AT 9 AM 30 tablet 11 zinc gluconate 50 mg tablet Take 1 tablet (50 mg total) by mouth daily No current facility-administered medications for this visit. 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 documented as of this encounter Care Teams Skidder Operator Relationship Specialty Start Date End Date Kirt Lindsay DO PCP - General Internal Medicine 02/02/21 Josué Del Valle MD PhD Medical Oncologist/Engineering Group Leader Medical Oncology 08/26/19 Cal Carranza DO [address] [place] [address] Senior Microstrategy Developer Internal Medicine 06/12/23 Halie Khan MD [address] [facility] [address] [place] [address] Telephone Sales Agent Critical Care Med 06/12/23 Wilfred Kinsey MD [address] [address] Consulting Physician Gastroenterology 03/02/24 documented as of this encounter
--- OUTSIDE RECORDS SUMMARY | 2024-11-22 10:47 | XMS_ITS | Encounter Summary ---
Author Organization [facility] Address [address] [place] [address] Care Team Providers Care Skein Washer Name Role Phone Josué Del Valle MD PhD Unavailable iKrt Lindsay DO Primary Care Provider [phone] Cal Carranza DO Unavailable [phone] Halie Khan MD Unavailable [phone] Wilfred Kinsey MD Unavailable Encounter Details Date Type Department Care Team (Late st Contact Info) Description 07/06/2024 Documentation [facility] Social Work [address] [place] [address] Anna Vaughn LCSW Social History Tobacco Use Types Packs/Day Years Used Date Smoking Tobacco: Some Days Cigarettes 0.5 40 Started: 1984 Smokeless Tobacco: Never Comments:pt states tried to quit [facility] Utilities Answer Date Recorded In the [...] week 06/16/2024 How often do you attend sabianism or tenriism serv ices? Never 06/16/2024 Do you belong to any clubs o r organizations such as sabianism groups, unions, fraternal or athletic groups, or [...] living in a halfway (including now)? No 06/16/2024 Personal Safety Answer Date Recorded Have you ever been in or are you currently in a harmful physical or emotional relationship or is someone making you feel afraid or unsafe? 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 She also requested a copy of AD/DPOA paperwork, which SW sent via email. PARESH called [employer] Advantage plan and was informed he does not have transportation benefits.Call reference number [id number]. Lissy explained he is not able to use his transportation through [place] because he has not met his spenddown. PARESH submitted referral to Medicaid Spenddown Advocate through [facility] and informed her that Brady can provide any medical bills from up to 6 months ago or proof he has paid his Medicare insurance premium to his local Medicaid Office: [facility] in [place] Address: [address] [place] [address] Or by uploading online to [facility] Medicaid Benefits website. PARESH also shared information about the [employer] Road to Recovery Program - [phone] in case it is helpful. PARESH will continue to follow. 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 documented as of this encounter Care Teams Skein Washer Relationship Specialty Start Date End Date Kirt Lindsay DO PCP - General Internal Medicine 02/02/21 Josué Del Valle MD PhD Medical Oncologist/Glass Smoother Medical Oncology 08/26/19 Cal Carranza DO [address] [place] [address] Nut Roaster Internal Medicine 06/12/23 Halie Khan MD [address] [place] [address] Water Use Inspector Critical Care Med 06/12/23 Wilfred Kinsey MD [address] [facility] [address] [place] [id number] Consulting Physician Gastroenterology 03/02/24 documented as of this encounter
--- OUTSIDE RECORDS SUMMARY | 2024-11-22 10:48 | XMS_ITS | Encounter Summary ---
Author Organization [facility] Healthcare Address [address] [place] [address] Care Team Providers Care Acls Specialist Name Role Phone Josué Del Valle MD PhD Unavailable [phone] Kirt Lindsay DO Primary Care Provider [phone] Cal Carranza DO Unavailable [phone] Halie Khan MD Unavailable [phone] Wilfred Kinsey MD Unavailable Encounter Details Date Type Department Care Team (Latest Contact Info) Description 06/12/2024 3:21 PM CDT - 06/12/2024 11:59 PM CDT Hospital Encounter [facility]) [address] [place] [id number] Discharge Disposition: Discharge to home or self care Social History Tobacco Use Types Packs/Day Years Used Date Smoking Tobacco: Some Days Cigarettes 0.5 40 Started: 1985 Smokeless Tobacco: Never Comments:pt states tried to quit [facility] Utilities Answer Date Recorded In the past 12 months has th e electric, gas, oil, or water company threatened to shut off services in your home? No 03/30/2024 Social Connection and Isolation Panel [NHANES] A nswer Date Recorded In a typical week, how many times do you talk on the phone with family, friends, or neighbors? Twice a week 03/30/2024 How often do you get together with friends or re latives? Once a week 03/30/2024 How often do you attend islam or mormon serv ices? Never 03/30/2024 Do you belong to any clubs o r organizations such as islam groups, unions, fraternal or athletic groups, or school groups? Yes 03/30/2024 How often do you attend meet ings of the clubs or organizations you belong to? Never 03/30/2024 Are you , , di vorced, , never , or living with a partner? 03/30/2024 AUDIT-C Answer Date Recorded Q1: How often do you have a drink containing alc ohol? Never 01/12/2022 Average Number of Drinks Not on file 022 Frequency of Binge Drinking Not on file 12/20 Overall Financial Resource Strain (CARDIA) Answe r Date Recorded How hard is it for you to pa y for the very basics like food, housing, medical care, and heating? Not hard at all 03/30/2024 Hunger Vital Sign Answer Date Recorded Within the past 12 months, y ou worried that your food would run out before you got the money to buy more. Never true 03/30/20 24 Within the past 12 months, t he food you bought just didn't last and you didn't have money to get more. Never true 03/30/2024 PRAPARE - Transportation Answer Date Re corded In the past 12 months, has l ack of transportation kept you from medical appointments or from getting medications? No 03/18 In the past 12 months, has l ack of transportation kept you from meetings, work, or from getting things needed for daily living? No 03/30/2024 Housing Stability Vital Sign Answer [...] place to sleep or slept in a residential (including now)? No 03/30/2024 Personal Safety Answer Date Recorded Have you ever been in or are you currently in a harmful physical or emotional relationship or is someone making you feel afraid or unsafe? 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 Gender Identity Not on file Sexual Orientation [...] flash glucose scanning reader (FreeStyle Evaristo 2 [place]) [facility] [...] into each nostril nightly Nightly and PRN Xarelto 20 mg tabletIndications:Acute myeloblastic leukemia, in remission (HCC) TAKE ONE TABLET BY MOUTH DAILY AT 9 AM 30 tablet 11 06/09/20 24 minocycline (MINOCIN,DYNACIN) 100 mg capsuleIndications:Pneum onia, Hospital Acquired Take 2 capsules (200 mg total) by mouth 2 (two) times a day for 7 doses 7 capsule 06/24/20 24 024 acetaminophen (TYLENOL) 500 mg tablet Take 2 tablets (1,000 mg total) by mouth 2 (two) times a day as needed for pain 024 acyclovir (ZOVIRAX) 400 mg tablet Take 1 tablet (400 mg total) by mouth every 8 (eight) hours 024 albuterol HFA (PROVENTIL HFA,VENTOLIN HFA,PROAIR HFA) 90 mcg/actuation inhalerIndications:Chron ic obstructive pulmonary disease, unspecified COPD type ([facility]) Inhale 2 puffs every 6 (six) hours as needed for wheezing 6.7 g 3 01/15/20 24 024 ascorbic acid 500 mg tablet,chewable Take 1 tablet/chew tab (500 mg total) by mouth daily 024 atorvastatin (LIPITOR) 40 mg tabletIndications:AML (acute myeloid leukemia) in remission ([facility]),Type 2 diabetes mellitus with hyperglycemia, with long-term current use of insulin ([facility]),Tfqda-kriims-gjwd disease ([facility]),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[facility]),Pure hypercholesterolemia Take 1 tablet (40 mg total) by mouth daily 30 tablet 6 01/15/20 024 diphenhydrAMINE-acetamin ophen (TYLENOL PM) 25-500 mg tablet Take 2 tablets by mouth nightly as needed for sleep 024 ixcnhfvyhqi-kfkctzptq-mu lanter (Trelegy Ellipta) 200-62.5-25 mcg inhaler Inhale 1 puff daily 024 gabapentin (NEURONTIN) 300 mg capsuleIndications:Acute myeloblastic leukemia, in remission ([facility]) TAKE ONE CAPSULE BY MOUTH FOUR TIMES DAILY @ [id number]-9PM 120 capsule 11 05/13/20 24 025 insulin glargine (LANTUS, SEMGLEE) 100 unit/mL vial for injectionIndications:Margaret betes Mellitus Inject 5 Units under the skin nightly 1.5 mL 1 06/24/20 24 024 insulin glargine 100 unit/mL (3 mL) pen for injection Inject 10 Units under the skin nightly 024 insulin lispro (HumaLOG, ADMELOG) 100 unit/mL pen for injection Inject 5-10 Units under the skin 3 (three) times a day before meals INJECT 5-10 UNITS TID WITH MEALS PLUS SLIDING SCALE. TDD OF 35 UNITS. magnesium oxide (MAG-OX) 250 mg (150.8 mg elemental) tablet Take 1 tablet (250 mg total) by mouth every other day minocycline (MINOCIN,DYNACIN) 100 mg capsuleIndications:Pneum onia, Hospital Acquired Take 2 capsules (200 mg total) by mouth 2 (two) times a day for 9 doses 7 capsule 06/24/20 24 montelukast (SINGULAIR) 10 mg tablet Take 1 tablet (10 mg total) by mouth nightly mycophenolate mofetil (CELLCEPT) 500 mg tablet Take 2 tablets (1,000 mg total) by mouth 2 (two) times a day nicotine (NICODERM CQ) [address] 1 patch on the skin daily 30 patch 1 03/02/[address] (PROTONIX) 40 mg EC tabletIndications:Stress Ulcer Prophylaxis Take 1 tablet (40 mg total) by mouth 2 (two) times a day for 120 doses 60 tablet 1 03/02/20 24 sucralfate (CARAFATE) suspension 1 gram/10 mL Take 10 mL (1 g total) by mouth 4 (four) times a day (with meals and nightly) for 240 doses 1200 mL 1 03/02/20 24 tacrolimus 0.5 mg immediate-release capsule Take 1 capsule (0.5 mg total) by mouth every other day UNKNOWN TO PATIENT Take 500 mg by mouth daily Patient endorses taking unknown 500 mg Iron product UNKNOWN TO PATIENT Take 1 capsule by mouth daily Probiotic voriCONAZOLE (VFEND) 200 mg tabletIndications:Acute myeloblastic leukemia, in remission (HCC) TAKE ONE TABLET BY MOUTH TWICE DAILY 60 tablet 11 05/05/20 24 zinc gluconate 50 mg tablet Take 1 tablet (50 mg total) by mouth daily documented as of this encounter Discharge Disposition Disposition Code Departure Means Destination Discharge to home or self care documented in this encounter Plan of Treatment Not on file documented as of this encounter Procedures Procedure Name Priority Date/Time Associated Diagnosis Comments CT BODY OUTSIDE REFERENCE Routine 06/12/2024 3:21 PM CDT documented in this encounter Results * CT Body Outside Reference (06/12/2024 3:21 PM CDT) Impressions RAD_PACS[facility] - 06/12/2024 3:21 PM CDT These images are for Reference purposes only and have not been reviewed by [facility] Radiology. ??There will be no report generated by a [facility] Radiologist. Narrative RAD_PACS[facility] - 06/12/2024 3:21 PM CDT EXAMINATION: ??Images For Reference Purposes Only us Josué Del Valle MD PhD IMG CT PROCEDURES Final Result [facility] documented in this encounter Visit Diagnoses Not on filedocumented in this encounter Care Teams Acls Specialist Relationship Specialty Start Date End Date Kirt Lindsay DO PCP - General Internal Medicine 02/02/21 Josué Del Valle MD PhD Medical Oncologist/Back Grinder Medical Oncology 08/26/19 Cal Carranza DO [address] [address] Presales Consultant Internal Medicine 06/12/23 Halie Khan MD [address] [id number] Lithographer Helper Critical Care Med 06/12/23 Wilfred Kinsey MD [address] [address] Consulting Physician Gastroenterology 03/02/24 documented as of this encounter
--- OUTSIDE RECORDS SUMMARY | 2024-11-22 10:48 | XMS_ITS | Encounter Summary ---
Author Organization [facility] Address [address] [place] [address] Phone Care Team Providers Care Blockman Name Role Phone Josué Del Valle MD PhD Unavailable Kirt Lindsay DO Primary Care Provider [phone] Cal Carranza DO Unavailable [phone] Halie Khan MD Unavailable [phone] Wilfred Kinsey MD Unavailable Encounter Details Date Type Department Care Team (Late st Contact Info) Description 06/22/[address] [facility] Bone Marrow Transplant [address] [facility] Advanced Medicine 7th Floor, [place] [address] Josué Del Valle MD PhD [address] DIV IM BONE MARROW TRANSPLANT, [address] [place] [address] AML s/p Allo SCT in 2008 (Primary Dx) Social History Tobacco Use Types Packs/Day Years Used Date Smoking Tobacco: Some Days Cigarettes 0.5 40 Started: 1985 Smokeless Tobacco: Never Comments:pt states tried to quit [facility] Utilities Answer Date Recorded In [...] week 06/16/2024 How often do you attend jain or catholic serv ices? Never 06/16/2024 Do you belong to any clubs o r organizations such as jain groups, unions, fraternal or athletic groups, or [...] in a residential (including now)? No 03/30/2024 Housing Stability Vital Sign Answer [place] Recorded In the last 12 months, was t here a time when you were not able to pay the mortgage or rent on time? No 06/16/2024 In the past 12 months, how m any times have you moved where you were living? 0 06/16/2024 At any time in the past 12 m [facility], were you homeless or living in a residential (including now)? No 06/16/2024 Personal Safety Answer Date Recorded Have you ever been in or are you currently in a harmful physical or emotional relationship or is someone making you feel afraid or unsafe? 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 Gender Identity Not on file Sexual Orientation Not on file documented as of this encounter Plan of Treatment Scheduled Orders Name Type Priority Associated Diagnoses Orde r Schedule CBC with auto differential Lab STAT AML s/p Allo SCT in 2008 Expected: 07/15/2024, Expires: 06/22/2025 Comprehensive metabolic panel Lab STAT AML s/p Allo SCT in 2008 Expected: 07/15/2024, Expires: 06/22/2025 Cytomegalovirus (CMV) DNA PCR, quantitative Blood Microbiology STAT AML s/p Allo SCT in 2008 Expected: 09/09/2024, Expires: 06/22/2025 Lactate dehydrogenase (LD) Lab STAT AML s/p Allo SCT in 2008 Expected: 09/09/2024, Expires: 06/22/2025 Magnesium Lab STAT AML s/p Allo SCT in 2008 Expected: 09/09/2024, Expires: 06/22/2025 Uric acid Lab STAT AML s/p Allo SCT in 2008 Expected: 09/09/2024, Expires: 06/22/2025 documented as of this encounter Visit Diagnoses Diagnosis AML s/p Allo SCT in 2008- Primary documented in this encounter Additional Health Concerns Infection Onset Date 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 documented as of this encounter Care Teams Blockman Relationship Specialty Start Date End Date Kirt Lindsay DO PCP - General Internal Medicine 02/02/21 Josué Del Valle MD PhD Medical Oncologist/Sorter/Assay Tech Medical Oncology 08/26/19 Cal Carranza DO [address] [place] [address] Supervisor Fruit Grading Internal Medicine 06/12/23 aHlie Khan MD [address] [place] [address] Metal Pattern Maker Critical Care Med 06/12/23 Wilfred Kinsey MD [address] [address] Consulting Physician Gastroenterology 03/02/24 documented as of this encounter
--- OUTSIDE RECORDS SUMMARY | 2024-11-22 10:48 | XMS_ITS | Encounter Summary ---
Author Organization [facility] Address [address] [place] [address] Phone Care Team Providers Care Adjunct Instructor Chemistry Name Role Phone Josué Del Valle MD PhD Unavailable [phone] Kirt Lindsay DO Primary Care Provider [phone] Cal Carranza DO Unavailable [phone] Halie Khan MD Unavailable [phone] Wilfred Kinsey MD Unavailable Encounter Details Date Type Department Care Team (Late st Contact Info) Description 06/15/2024 Telephone [facility]row Trans[facility] [address] [facility] Advanced Medicine 7th Floor, [place] [address] Josué Rice RN Social History Tobacco Use Types Packs/Day Years Used Date Smoking Tobacco: Some Days Cigarettes 0.5 40 Started: 1985 Smokeless Tobacco: Never Comments:pt states tried to quit [facility] Utilities Answer Date Recorded In the past 12 months has th [employer] electric, gas, oil, or water company threatened [...] week 06/16/2024 How often do you attend jehovah's witness or hinduism serv ices? 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 [place]. [place] [id number] documented in this encounter Plan of Treatment Not on file documented as of this encounter Visit Diagnoses Not on filedocumented in this encounter Care Teams Adjunct Instructor Chemistry Relationship Specialty Start Date End Date Kirt Lindsay DO PCP - General Internal Medicine 02/02/21 Josué Del Valle MD PhD Medical Oncologist/Cold Strip Feeder Medical Oncology 08/26/19 Cal Carranza DO [address] [place] [address] Costing Analyst Internal Medicine 06/12/23 Halie Khan MD [address] [facility] [address] [place] [address] Director Strategic Account Management Critical Care Med 06/12/23 Wilfred Kinsey MD [address] [address] Consulting Physician Gastroenterology 03/02/24 documented as of this encounter
--- OUTSIDE RECORDS SUMMARY | 2024-11-22 10:48 | XMS_ITS | Encounter Summary ---
Author Organization [facility] Address [address] [place] [address] Phone Care Team Providers Care End Lathe Operator Name Role Phone Josué Del Valle MD PhD Unavailable [phone] Kirt Lindsay DO Primary Care Provider [phone] Cal Carranza DO Unavailable Halie Khan MD Unavailable [phone] Wilfred Kinsey MD Unavailable Encounter Details Date Type Department Care Team (Late st Contact Info) Description 06/11/2024 Telephone [facility] [address] [facility] Advanced Medicine 7th Floor, [place] [address] Josué Del Valle MD PhD [address] IM BONE MARROW TRANSPLANT, [address] [place] [address] Social History Tobacco Use Types Packs/Day Years Used Date Smoking Tobacco: Some Days Cigarettes 0.5 40 Started: 1985 Smokeless Tobacco: Never Comments:pt states tried to quit [facility] Utilities Answer Date Recorded In [...] week 03/30/2024 How often do you attend scientology or hindu serv ices? Never 03/30/2024 Do you belong [...] in a jail (including now)? No 03/30/2024 Personal Safety Answer Date Recorded Have you ever been in or are you currently in a harmful physical or emotional relationship or is someone making you feel afraid or unsafe? 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 Patient has no fever, chills, chest pain, and SOB is normal as he has COPD but no worse than normal. Patient knows to go toED if fever or new symptoms start. Will await call for bed. * Telephone Encounter - Marisa Mcdermott - 06/11/2024 2:02 PM CDT Patient had a recent CT at [facility] and is asking for it to be reviewed and someone call him back to discuss it. documented in this encounter Plan of Treatment Not on file documented as of this encounter Visit Diagnoses Not on filedocumented in this encounter Care Teams End Lathe Operator Relationship Specialty Start Date End Date Kirt Lindsay DO PCP - General Internal Medicine 02/02/21 Josué Del Valle MD PhD Medical Oncologist/Block Press Operator Medical Oncology 08/26/19 Cal Carranza DO [address] [facility] [address] [place] [address] Operations Research Manager Internal Medicine 06/12/23 Halie Khan MD [address] [facility] [address] [place] [address] Local Driver Critical Care Med 06/12/23 Wilfred Kinsey MD [address] [address] Consulting Physician Gastroenterology 03/02/24 documented as of this encounter
--- OUTSIDE RECORDS SUMMARY | 2024-11-22 10:48 | XMS_ITS | Encounter Summary ---
Author Organization [facility] Healthcare Address [address] [place] [address] Care Team Providers Care Pool Hand Name Role Phone Josué Del Valle MD PhD Unavailable [phone] Kirt Lindsay DO Primary Care Provider [phone] Cal Carranza DO Unavailable [phone] Halie Khan MD Unavailable [phone] Wilfred Kinsey MD Unavailable Encounter Details Date Type Department Care Team (Latest Contact Info) Description 06/12/2024 3:33 PM CDT - 06/12/2024 11:59 PM CDT Hospital Encounter [facility]) [address] [place] [address] Discharge Disposition: Discharge to home or self care Social History Tobacco Use Types Packs/Day Years Used Date Smoking Tobacco: Some Days Cigarettes 0.5 40 Started: 1985 Smokeless Tobacco: Never Comments:pt states tried to quit [facility] Utilities Answer Date Recorded [...] week 03/30/2024 How often do you attend pentecostalism or yarsanism serv ices? Never 03/30/2024 Do you belong to any clubs o r organizations such as pentecostalism groups, unions, fraternal or athletic groups, or [...] in a usp (including now)? No 03/30/2024 Personal Safety Answer Date Recorded Have you ever been in or are you currently in a harmful physical or emotional relationship or is someone making you feel afraid or unsafe? 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 Gender Identity Not on file Sexual Orientation [...] flash glucose scanning reader (FreeStyle Evaristo 2 [place]) [facility] Use to test blood glucose continuously 1 [...] ic obstructive pulmonary disease, unspecified COPD type ([facility]) Inhale 2 puffs every 6 (six) hours as needed for wheezing 6.7 g 3 01/15/20 24 024 ascorbic acid 500 mg tablet,chewable Take 1 tablet/chew tab (500 mg total) by mouth daily 024 atorvastatin (LIPITOR) 40 mg tabletIndications:AML (acute myeloid leukemia) in remission ([facility]),Type 2 diabetes mellitus with hyperglycemia, with long-term current use of insulin ([facility]),Dalou-qgfpeu-wiux disease ([facility]),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[facility]),Pure hypercholesterolemia Take 1 tablet (40 mg total) by mouth daily 30 tablet 6 01/15/20 024 diphenhydrAMINE-acetamin ophen (TYLENOL PM) 25-500 mg tablet Take 2 tablets by mouth nightly as needed for sleep 024 opjgqwiqwhb-nytidymmc-uz lanter (Trelegy Ellipta) 200-62.5-25 mcg inhaler Inhale 1 puff daily 024 gabapentin (NEURONTIN) 300 mg capsuleIndications:Acute myeloblastic leukemia, in remission ([facility]) TAKE ONE CAPSULE BY MOUTH FOUR TIMES DAILY @ [id number]-9PM 120 capsule 11 05/13/20 24 025 insulin [...] Comments CT BODY OUTSIDE REFERENCE Routine 06/12/2024 3:33 PM CDT documented in this encounter Results * CT Body Outside Reference (06/12/2024 3:33 PM CDT) Impressions RAD_P[facility] - 06/12/2024 3:33 PM CDT These images are for Reference purposes only and have not been reviewed by [facility] Radiology. ??There will be no report generated by a [facility] Radiologist. Narrative RAD_PACS[facility] - 06/12/2024 3:33 PM CDT EXAMINATION: ??Images For Reference Purposes Only us Josué Del Valle MD PhD IMG CT PROCEDURES Final Result [facility] documented in this encounter Visit Diagnoses Not on filedocumented in this encounter Care Teams Pool Hand Relationship Specialty Start Date End Date Kirt Lindsay DO PCP - General Internal Medicine 02/02/21 Josué Del Valle MD PhD Medical Oncologist/Siding Installer Medical Oncology 08/26/19 Cal Carranza DO [address] [address] [place] Hydraulic Press Operator Internal Medicine 06/12/23 Halie Khan MD [address] [id number] Consumer Education Specialist Critical Care Med 06/12/23 Wilfred Kinsey MD [address] [address] Consulting Physician Gastroenterology 03/02/24 documented as of this encounter
--- OUTSIDE RECORDS SUMMARY | 2024-11-22 10:48 | XMS_ITS | Encounter Summary ---
Author Organization [facility] Healthcare Address [address] [place] [address] Care Team Providers Care Contract Preparer Name Role Phone Josué Del Valle MD PhD Unavailable [phone] Kirt Lindsay DO Primary Care Provider [phone] Cal Carranza DO Unavailable [phone] Halie Khan MD Unavailable Wilfred Kinsey MD Unavailable Encounter Details Date Type Department Care Team (Late st Contact Info) Description 06/11/2024 1:37 PM CDT - 06/12/2024 1:04 PM CDT Emergency [facility] Emergency Department [address] [place] [id number] Discharge Disposition: ED Dismiss - Never Arrived Social History Tobacco Use Types Packs/Day Years Used Date Smoking Tobacco: Some Days Cigarettes 0.5 40 Started: 1985 Smokeless Tobacco: Never Comments:pt states tried to quit [facility] Utilities Answer Date Recorded In the past [...] week 03/30/2024 How often do you attend taoist or rastafarian serv ices? Never 03/30/2024 Do you belong [...] No 03/30/2024 Housing Stability Vital Sign Answer Mroro e Recorded In the last 12 months, [...] a senior living (including now)? No 03/30/2024 Personal Safety Answer Date Recorded Have you ever been in or are you currently in a harmful physical or emotional relationship or is someone making you feel afraid or unsafe? 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 Gender Identity Not on file Sexual Orientation [...] flash glucose scanning reader (FreeStyle Evaristo 2 [place]) [facility] [place] to test blood glucose continuously 1 [...] ic obstructive pulmonary disease, unspecified COPD type ([facility]) Inhale 2 puffs every 6 (six) hours as needed for wheezing 6.7 g 3 01/15/20 24 024 ascorbic acid 500 mg tablet,chewable Take 1 tablet/chew tab (500 mg total) by mouth daily 024 atorvastatin (LIPITOR) 40 mg tabletIndications:AML (acute myeloid leukemia) in remission ([facility]),Type 2 diabetes mellitus with hyperglycemia, with long-term current use of insulin ([facility]),Rxcon-xnqmhe-rnih disease ([facility]),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 TDD OF 35 UNITS. 024 magnesium oxide (MAG-OX) 250 mg (150.8 mg elemental) tablet Take 1 tablet (250 mg total) by mouth every other day minocycline (MINOCIN,DYNACIN) 100 mg capsuleIndications:Pneum onia, Hospital Acquired Take 2 capsules (200 mg total) by mouth 2 (two) times a day for 9 doses 7 capsule 06/24/20 24 024 montelukast (SINGULAIR) 10 mg tablet [...] Discharge Disposition Disposition Code Departure Means Destination ED Dismiss - Never Arrived documented in this encounter Miscellaneous Notes * ED Pre-Arrival Note - Romana De La Fuente RN - 06/11/2024 1:38 PM CDT Pre-Arrival Note Pt called in by PMD Dr. Alex Molina who has not seen him since 07/18/23, pt also followed byDr. Queen(sp) from [facility] and has had a tx. On immunosuppressants, seen at OSH in February for bacteremia, March for pneumonia and had CT done at [facility] on 05/28 and has large mass to R upper lobe and reports productive cough. Romana De La Fuente RN documented in this encounter Plan of Treatment Not on file documented as of this encounter Visit Diagnoses Not on filedocumented in this encounter Care Teams Contract Preparer Relationship Specialty Start Date End Date Kirt Lindsay DO PCP - General Internal Medicine 02/02/21 Josué Del Valle MD PhD Medical Oncologist/Kitchen Mechanic Medical Oncology 08/26/19 Cal Carranza DO [address] [address] [employer]wood Layup Line Back Feeder Internal Medicine 06/12/23 Halie Khan MD [address] [address] Foundry Melt Supervisor Critical Care Med 06/12/23 Wilfred Kinsey MD [address] [address] Consulting Physician Gastroenterology 03/02/24 documented as of this encounter
--- OUTSIDE RECORDS SUMMARY | 2024-11-22 10:48 | XMS_ITS | Encounter Summary ---
Author Organization [facility] Healthcare Address [address] [place] [address] Care Team Providers Care School Psychology Specialist Name Role Phone Josué Del Valle MD PhD Unavailable [phone] Kirt Lindsay DO Primary Care Provider [phone] Cal Carranza DO Unavailable [phone] Halie Khan MD Unavailable [phone] Wilfred Kinsey MD Unavailable Encounter Details Date Type Department Care Team (Latest Contact Info) Description 06/12/2024 3:01 PM CDT - 06/12/2024 11:59 PM CDT Hospital Encounter [facility] [place] [address] Diagnosis unknown Discharge Disposition: Discharge to home or self care Social History Tobacco Use Types Packs/Day Years Used Date Smoking Tobacco: Some Days Cigarettes 0.5 40 Started: 1985 Smokeless Tobacco: Never Comments:pt states tried to quit [facility] Utilities Answer Date Recorded In the past [...] week 03/30/2024 How often do you attend temple or zoroastrian serv ices? Never 03/30/2024 Do you belong to any clubs o r organizations such as temple groups, unions, fraternal or athletic groups, or [...] in a prison (including now)? No 03/30/2024 Personal Safety Answer Date Recorded Have you ever been in or are you currently in a harmful physical or emotional relationship or is someone making you feel afraid or unsafe? 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 Gender Identity Not on file Sexual Orientation [...] flash glucose scanning reader (FreeStyle Evaristo 2 [place]) [facility] [place] Use to test blood glucose continuously 1 [...] pulmonary disease, unspecified COPD type ([facility]) Inhale 2 puffs every 6 (six) hours as needed for wheezing 6.7 g 3 01/15/20 24 024 ascorbic acid 500 mg tablet,chewable Take 1 tablet/chew tab (500 mg total) by mouth daily 024 atorvastatin (LIPITOR) 40 mg tabletIndications:AML (acute myeloid leukemia) in remission ([facility]),Type 2 diabetes mellitus with hyperglycemia, with long-term current use of insulin ([facility]),Hdbjm-uicugk-hsml disease ([facility]),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[facility]),Pure hypercholesterolemia Take 1 tablet (40 mg total) by mouth daily 30 tablet 6 01/15/20 024 diphenhydrAMINE-acetamin ophen (TYLENOL PM) 25-500 mg tablet Take 2 tablets by mouth nightly as needed for sleep 024 ulopznztihw-oimohpwet-mp lanter (Trelegy Ellipta) 200-62.5-25 mcg inhaler Inhale 1 puff daily 024 gabapentin (NEURONTIN) 300 mg capsuleIndications:Acute myeloblastic leukemia, in remission ([facility]) TAKE ONE CAPSULE BY MOUTH FOUR TIMES DAILY @ [id number]-9PM 120 capsule 11 05/13/20 24 025 insulin [...] Date/Time Associated Diagnosis Comments CT BODY OUTSIDE CONSULT Routine 06/12/2024 3:01 PM CDT Diagnosis unknown documented in this encounter Results * CT Body Outside Consult (06/12/2024 3:01 PM CDT) Anatomical Region Laterality Modality Body N/A Computed Tomogra phy 06/13/2024 11:3 8 AM CDT Impressions 06/13/2024 4:32 PM CDT 1. ??Stable to mild improvement in previously imaged bilateral upper lobe pulmonary consolidations; however, there is a new consolidation in the left upper lobe. ??Imaging appearance could be consistent with organizing pneumonia. 2. ??Stable pulmonary nodules. The findings, conclusions and recommendations within this report do not replace the initial findings, conclusions ??and recommendations made at the facility where the study was performed based upon the imaging and clinical condition at that time. ??Comparison with the prior report and clinical history is necessary. ??The provided images may or may not represent the [place] source data set and thus may contain changes that may lower the accuracy of this second-opinion interpretation. Dictated by: Carlos Eduardo Ma M.D. The radiology attending physician has personally reviewed this study, and had reviewed and/or edited this written report and agrees with it. Electronically signed by: John Paul Crenshaw M.D. Narrative 06/13/2024 4:32 PM CDT EXAMINATION: RADIOLOGY CONSULTATION ON OUTSIDE IMAGING STUDY STUDY INITIALLY PERFORMED: 05/28/2024 at [facility]. TYPE OF STUDY: Multiple CT images of [...] allogenic stem cell transplant 2009 complicated by gssrc-yybyst-ctuf. ??Diagnosed with pneumonia 03/27/2024 and completed antibiotic therapy. COMPARISON: CT chest with contrast 03/27/2024. FINDINGS: Centrilobular emphysema with dominant blebs in the anterior right hemithorax. ??Consolidation within the apices of the right lobe are stable to mildly improved from CT 03/27/2024. ??Left upper lobe posterior consolidation is mildly improved from 03/27/2024. ??New focal area of consolidation within the left upper lobe (table position -75.0). ??Previously imaged nodules in the left upper lobe measuring 0.8 centimeters (table position -32.5), right middle lobe measuring 0.7 cm (table position -65.0), and right lower lobe measuring 0.4 cm (table position 100.0) are stable. Subcentimeter right supra clavicular lymphadenopathy. ??No mediastinal or axillary lymphadenopathy. ??Heart size is normal. ??Pericardial effusion present. ??Mild multivessel coronary artery disease. Thoracic aorta is normal caliber. No acute processes within the imaged portion of the noncontrast evaluated upper abdomen. No suspicious osseous lesions. Procedure Note John Paul Crenshaw MD - 06/13/2024 EXAMINATION: RADIOLOGY CONSULTATION ON OUTSIDE IMAGING STUDY STUDY INITIALLY PERFORMED: 05/28/2024 at [facility]. TYPE OF STUDY: Multiple CT images of [...] allogenic stem cell transplant 2009 complicated by pvswj-quwohx-mvlz. Diagnosed with pneumonia 03/27/2024 and completed antibiotic [...] evaluated upper abdomen. No suspicious osseous lesions. IMPRESSION: 1. Stable to mild improvement in previously [...] images may or may not represent the [place] source data set and thus may contain changes that may lower the accuracy of this second-opinion interpretation. Dictated by: Carlos Eduardo Ma M.D. The radiology attending physician has personally reviewed this study, and had reviewed and/or edited this written report and agrees with it. Electronically signed by: John Paul Crenshaw M.D. Josué Del Valle MD PhD IMG CT PROCEDURES Final Result documented in this encounter Visit Diagnoses Diagnosis Diagnosis unknown documented in this encounter Care Teams School Psychology Specialist Relationship Specialty Start Date End Date Kirt Lindsay DO PCP - General Internal Medicine 02/02/21 Josué Del Valle MD PhD Medical Oncologist/District Plant Superintendent Medical Oncology 08/26/19 Cal Carranza DO [address] [facility] [address] [place] [address] Foot Caster Internal Medicine 06/12/23 Halie Khan MD [address] [facility] [address] [place] [address] Flexible Babysitter Critical Care Med 06/12/23 Wilfred Kinsey MD [address] [facility] [address] [place] [address] Consulting Physician Gastroenterology 03/02/24 documented as of this encounter
--- OUTSIDE RECORDS SUMMARY | 2024-11-22 10:48 | XMS_ITS | Encounter Summary ---
Author Organization [facility] Address [address] [place] [address] Phone Care Team Providers Care Cap Inspector Name Role Phone Josué Del Valle MD PhD Unavailable [phone] Kirt Lindsay DO Primary Care Provider [phone] Cal Carranza DO Unavailable [phone] Halie Khan MD Unavailable [phone] Wilfred Kinsey MD Unavailable Encounter Details Date Type Department Care Team (Late st Contact Info) Description 06/15/2024 Telephone [facility] Transplant [address] [facility] 7th Floor, [place] [address] Josué Rice RN Social History Tobacco Use Types Packs/Day Years Used Date Smoking Tobacco: Some Days Cigarettes 0.5 40 Started: 1985 Smokeless Tobacco: Never Comments:pt states tried to quit [facility] Utilities Answer Date Recorded In the past 12 months has th [employer], gas, oil, or water company threatened [...] week 06/16/2024 How often do you attend catholic or latter day serv ices? Never 06/16/2024 Do you belong [...] place to sleep or slept in a penitentiary (including now)? No 03/30/2024 Housing Stability Vital [...] the past [address] [facility], were you homeless or living in a penitentiary (including now)? No 06/16/2024 Personal Safety Answer Date Recorded Have you ever been in or are you currently in a harmful physical or emotional relationship or is someone making you feel afraid or unsafe? 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 documented in this encounter Plan of Treatment Not on file documented as of this encounter Visit Diagnoses Not on filedocumented in this encounter Care Teams Cap Inspector Relationship Specialty Start Date End Date Kirt Lindsay DO PCP - General Internal Medicine 02/02/21 Josué Del Valle MD PhD Medical Oncologist/Health Safety Engineer Medical Oncology 08/26/19 Cal Carranza DO [address] [facility] [address] [place] [address] Maintenance Equipment Operator Internal Medicine 06/12/23 Halie Khan MD [address] [facility] [address] [place] [address] Hardwood Flooring Specialist Critical Care Med 06/12/23 Wilfred Kinsey MD [address] [facility] [address] [place] [address] Consulting Physician Gastroenterology 03/02/24 documented as of this encounter
--- OUTSIDE RECORDS SUMMARY | 2024-11-22 10:48 | XMS_ITS | Encounter Summary ---
Author Organization [facility] Healthcare Address [address] [place] [address] Care Team Providers Care Panelboard Assembler Name Role Phone Josué Del Valle MD PhD Unavailable [phone] Kirt Lindsay DO Primary Care Provider [phone] Cal Cararnza DO Unavailable [phone] Halie Khan MD Unavailable [phone] Wilfred Kinsey MD Unavailable Reason for Referral * (Routine) - Pending Review Specialty Diagnoses / Procedures Referred By Ana M anderson Referred To Contact Diagnoses Increased weakness when ambulating Procedures Miscellaneous DME Marcela Silva MD [address] IM BONE MARROW TRANSPLANT[address] [place] [address] Phone: tel: fax: Referral ID Status Reason Start Date Expiration Date V isits Requested Visits Authorized [id number] Pending Review 06/22/2024 07/22/2025 1 1 Reason for Visit * Auth/Cert Specialty Diagnoses / Procedures Referred By Contac t Referred To Contact Diagnoses 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 [address] [place] [address] Josué Del Valle MD PhD [address] [employer], [address] [place] [address] Kirt Hernandez MD PhD [address] [place] [address] Parviz Hannon MD PhD [address] [place] [address] Marcela Silva MD [address] DIV [employer], [address] [place] [address] Anthony Grace MD [address] [place] [address] AML s/p Allo SCT in 2008 (Primary Dx); Hypomagnesemia; Increased weakness when ambulating; Type 2 diabetes mellitus with hyperosmolarity 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, with long-term current use of insulin (HCC); Hypokalemia; Pneumonia of right upper lobe due to infectious organism Discharge Disposition: Discharge to home or self care Social History Tobacco Use Types Packs/Day Years Used Date Smoking Tobacco: Some Days Cigarettes 0.5 40 Started: 1985 Smokeless Tobacco: Never Comments:pt states tried to quit [facility] Utilities Answer Date Recorded In the past 12 months has [employer], gas, oil, or water [employer] threatened to shut off services in your home? No 06/16/2024 Social Connection and Isolation Panel [NHANES] A nswer Date Recorded In a typical week, how many times do you talk on the phone with family, friends, or neighbors? Twice a week 06/16/2024 How often do you get together with friends or re latives? Once a week 06/16/2024 How often do you attend restoration or pres[employer]ian serv ices? Never 06/16/2024 Do you belong to any clubs o r organizations such as restoration groups, unions, fraternal or athletic groups, or [...] any time in the past 12 m [facility], were you homeless or living in a usp (including now)? No 06/16/2024 Personal Safety Answer Date Recorded Have you ever been in or are you currently in a harmful physical or emotional relationship or is someone making you feel afraid or unsafe? Denies 06/15/2024 Sex and Gender Information Value Date Recorded Sex Assigned at Not on file Legal Sex Male 10:48 AM [employer] Gender Identity Not on file Sexual Orientation Not on file documented as of this encounter Last Filed Vital Signs Vital Sign Reading Time Taken Comments Blood Pressure 107/64 06/24/2024 11:34 AM CDT Pulse 95 06/24/2024 11:34 AM CDT Temperature 36.7 ??C (98.1 ??F) 06/24/2024 11:34 AM C DT Respiratory Rate 16 06/24/2024 11:34 AM CDT Oxygen Saturation 97% 06/24/2024 11:34 AM CDT Inhaled Oxygen Concentration - - Weight 67 kg (147 lb 11.3 oz) 06/18/2024 7:40 PM CDT Height 180.3 cm (5' 11 ) 06/16/2024 3:00 PM CDT Body Mass Index 20.6 06/16/2024 3:00 PM CDT documented in this encounter Discharge Summaries * Esthela Fowler MD - 06/24/2024 1:25 PM CDT Inpatient Discharge Summary BRIEF OVERVIEW Admitting Provider: Anthony Grace MD Discharge Provider: Marcela Silva MD Primary Care Physician at Discharge: Kirt Lindsay DO [phone] Admission Date: 06/15/2024 Discharge Date: 06/24/2024 Admission Location: [facility] Hospital Problems/Diagnoses: Principal Problem: Right sided lung infiltrate Active Problems: Vlgnt-etuzgy-kvus disease (HCC) AML s/p Allo SCT in 2009 Type 2 diabetes mellitus (HCC) DVT (deep venous thrombosis) ([facility]) (HCC) CHF (congestive heart failure) ([facility]) ([facility]) Peripheral neuropathy Tobacco abuse Pneumonia due to stenotrophomonas COPD with Pulmonary emphysema (HCC) Acute on chronic hypoxic respiratory failure ([facility]) Moderate malnutrition ([facility]) Nontuberculous mycobacterial disease of lung ([facility]) ([facility]) Resolved Problems: No resolved hospital problems. 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 He was evaluated by pulmonary and had a bronchoscopy this AM. Post procedure, pt was doing well, able to eat. He reports developing acute shortness of breath. An ACT was called due to dyspnea, RR 38 and accessory muscle use. He treat with a neb without improved, was placed on NRB and brought to ICU. He was placed on BIPap, HR 130s on admission to ICU. Pt is awake and alert, able to answer questions and follow commands. Due to BiPap, unable to full gather history from pt, information gathered from chart. Prior to admission, he required 02 more frequently at home, using 3L 02 at rest and 5L 02 with exertion. He uses 3 pillows to sleep, has had weight loss of 20lbs in last year. He has persistent coughwith yellow phlegm, which is unchanged. He was recently hospitalized at [facility] (03/27-04/03) with shortness of breath, with CT evidence of dense multifocal airspace consolidations right upper lobe and to a lesser extentposterior left lower lobe co stable bilateral pulmonary nodules and managed for multifocal pneumonia with 7 days of cefepime and 3 days of azithromycin. Prior to this he was hospitalized for MSSA bacteremia and 42 day course of Ancef therapy. Hospital Course: # Acute on chronic hypoxic respiratory failure # Right-sided lung infiltrate # Non-TB mycobacterial infection # Stenotrophomonas infection # COPD exacerbation Patient was admitted for right upper lobe cavitary lesion. He became acutely hypoxic requiring ICU transfer for BiPAP, but was quickly weaned back to his baseline 2L NC. Pulmonology performed BAL on 06/16 while in ICU. This was notable for non-TB mycobacterium and Stenotrophomonas. Additional infectious workup (CMV, RVP, PJP, Crypto, galactomannan, Blasto, Histo) were negative. The patient received prednisone (06/16 - 06/20) and azithromycin (06/16 - 06/18) for COPD exacerbation; vancomycin (06/16 - 06/18) was discontinued on negative MRSA nares; Zosyn (06/16 - 06/20) for pneumonia; and minocycline (06/18 -06/27) for Stenotrophomonas. Patient's home Trelegy Ellipta daily and montelukast were continued during admission, and patient also received DuoNebs and anti-tussives PRN. Transplant ID was consulted and provided recommendations on Zosyn and minocycline as above. Patient will follow with Dr. Pinzon for further management of non-TB mycobacterial infection. On walk test, respiratory therapy determined that the patient did not need oxygen with rest or with walking. # AML s/p allo-SCT [address] Del Valle. Dx in 2008 s/p 7+3 and HiDAC consolidation x3 followed by decitabine maintenance on CALGB 31643 protocol. He relapsed then underwent allo-SCT from sister 08/27 match D0 = 11/09/09. 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 OI ppx with acyclovir, voriconazole were continued. # Heart failure with preserved ejection fraction: TTE 03/28/24 LVEF 50-55%, low- normal systolic function, small pericardial effusion. NT-proBNP 1012 on admission. Euvolemic during admission. # Type 2 diabetes mellitus: A1c 6.7%, managed with SSI and NPH with steroids. #Peripheral neuropathy: Continued home gabapentin 300 mg QID. #Hx DVT: Continued home rivaroxaban 20 mg daily. #Erosive esophagitis / #Stress ulcer prophylaxis: Continued home pantoprazole 40 mg BID #Hyperlipidemia: Continued home atorvastatin 40 mg daily #Tobacco use disorder: 0.5 ppd x 40 years, still smokes. Managed with nicotine replacement therapy while admitted. Active Issues Requiring Follow-up: Please follow-up with Infectious Disease within 2-3 weeks. Test Results Pending at Discharge: Pending Labs Order Current Status Pro B-type natriuretic peptide In process Mycobacteriology (AFB) culture and acid-fast stain Bronchial washing Bronchial Preliminary result Mycobacteriology (AFB) culture and acid-fast stain Bronchoalveolar lavage Bronchial Preliminary result Mycology (fungal) culture Bronchial washing Bronchial Preliminary result Mycology (fungal) culture Bronchoalveolar lavage Bronchial Preliminary result Operative Procedures Performed: None Other Procedures: 06/16 BAL in ICU Pertinent Test Results: As above Discharge Details Physical Exam at Discharge: Discharge Condition: fair Pulse: 95 Resp: 16 BP: 107/64 Temp: 36.7 ??C (98.1 ??F) Weight: 67 kg (147 lb 11.3 oz) Pertinent Exam Findings at Discharge: See day of discharge progress note Discharge Disposition: Discharge to home or self care Code Status at Discharge: Full Discharge Instructions: Dear Bri Jones, You were admitted to the hospital for a lung infection for which you are taking antibiotics. Beforeyou left, the respiratory therapists did a walk test and found that you do not need oxygen with rest or with exercise; please continue your nightly oxygen. Please continue to take MINOCYCLINE 200mg two times per day through 06/27. Please follow-up in ID clinic in 2-3 weeks; ID will call you to set up an appointment. It is very important that you take your medications as directed in your medication list. Important new medications and changes are as follows: New medications START taking minocycline (Minocin) 200 mg two times daily for Stenotrophomonas infection through 06/27 Changes to old medications Please start taking Glargine 5 units before bedtime. Continue your insulin slide with meals. Follow-up appointments It is very important that you attend these follow-up appointments. Please follow up with Dr. Martín Pinzon in Infectious Diseases who specializes in mycobacterial infections If you have any questions or concerns, please make sure to contact your healthcare provider. When to Call - Hematologic Malignancies Program call Right Away if you have: A temperature of 100.5?? F or 38?? C DO NOT take Acetaminophen (Tylenol), Aspirin, or Ibuprofen (Motrin, Advil) unless your physician tells you to Shaking Chills A hard time breathing - shortness of breath at rest or after minimal exertion Vomiting that is not controlled by your anti-nausea medicine Nausea that prevents you from eating, drinking, or taking medicine, and is not being controlled by your anti-nausea medicine Unusual or heavy bleeding (saturating one dressing/pad an hour) Blood in urine, black/bright red blood in stool, or nosebleeds Feeling confused or very sleepy - Weakness or dizziness Pain of increased intensity or development of new pain, including strong headaches Central Line Pulled Out or Cut Saturday-Saturday and let them know it's urgent between the hours of 8 AM and 5 PM After Hours Call our exchange at and ask for the oncology on-call provider Weekends, Hols, & after 5 PM Saturday-Fridays Leave a message for: General Questions Appointment Changes If you are unable to get your medicine at the pharmacy Pain or skin changes at the drug injection site Diarrhea for more than 2 days that is not controlled by anti-diarrhea medicine Watery diarrhea, stomach cramps, or nausea that doesn't go away No bowel movement for 2 or more days Frequent and/or painful urinating Persistent cough or a cough producing yellow or green mucous Mouth sores Skin rash Avoid taking any non-prescription medicine without your doctor's approval Saturday-Saturday Via Polleverywhere or between the hours of 8 AM and 5 PM Refills Please contact your pharmacy directly for refills or send requests via Polleverywhere. Please allow at least 2 business days for processing your requests. Narcotics cannot be refilled over after hours/s/holidays. Other Instructions Miscellaneous DME Name/type: 2 wheeled walker The yrzf-ij-psqc evaluation was performed on: 06/22/2024 Additional providers who completed a hbfq-us-scod evaluation of the patient: MARCELA SILVA DME services provided by: [facility] Office: [facility] [place] Medical Equipment (2 wheeled walker) [phone] Discharge Medications: Current Medications TAKE these medications acetaminophen 500 mg tablet Take 2 tablets (1,000 mg total) by mouth 2 (two) times a day as needed for pain Commonly known as: TYLENOL acyclovir 400 mg tablet Take 1 tablet (400 mg total) by mouth every 8 (eight) hours Commonly known as: ZOVIRAX * albuterol HFA 90 mcg/actuation inhaler Inhale 2 puffs every 6 (six) hours as needed for wheezing Commonly known as: PROVENTIL HFA,VENTOLIN HFA,PROAIR HFA * albuterol 2.5 mg /3 mL (0.083 %) nebulizer solution Take 3 mL (2.5 mg total) by nebulization every 6 (six) hours as needed for wheezing or shortness of breath ascorbic acid 500 mg tablet,chewable Take 1 tablet/chew tab (500 mg total) by mouth daily Commonly known as: VITAMIN C atorvastatin 40 mg tablet Take 1 tablet (40 mg total) by mouth daily Commonly known as: LIPITOR cholecalciferol 25 mcg (1,000 unit) tablet Take 2 tablets (2,000 Units total) by mouth every morning Commonly known as: VITAMIN D-3 cyanocobalamin 1,000 mcg tablet Take 1 tablet (1,000 mcg total) by mouth every morning Commonly known as: Vitamin B-12 diphenhydrAMINE-acetaminophen 25-500 mg tablet Take 2 tablets by mouth nightly as needed for sleep Commonly known as: TYLENOL PM FreeStyle Evaristo 2 [place] [employer] Use to test blood glucose continuously Generic drug: flash glucose scanning reader FreeStyle Evaristo 2 Sensor kit Change sensor every 14 days Generic drug: flash glucose sensor gabapentin 300 mg capsule TAKE ONE CAPSULE BY MOUTH FOUR TIMES DAILY @ [id number]-9PM Commonly known as: NEURONTIN guaiFENesin ER 600 mg 12 hr tablet Take 1 tablet (600 mg total) by mouth 2 (two) times a day Commonly known as: MUCINEX insulin glargine 100 unit/mL vial for injection Inject 5 Units under the skin nightly For: diabetes Commonly known as: LANTUS, SEMGLEE insulin lispro 100 unit/mL pen for injection Inject 5-10 Units under the skin 3 (three) times a day before meals INJECT 5-10 UNITS TID WITH MEALS PLUS SLIDING SCALE. TDD OF 35 UNITS. Commonly known as: HumaLOG, ADMELOG magnesium oxide 250 mg (150.8 mg elemental) tablet Take 1 tablet (250 mg total) by mouth every other day Commonly known as: MAG-OX minocycline 100 mg capsule Take 2 capsules (200 mg total) by mouth 2 (two) times a day for 7 doses For: Pneumonia, Hospital Acquired Commonly known as: MINOCIN,DYNACIN montelukast 10 mg tablet Take 1 tablet [...] by mouth daily Commonly known as: LOVAZA oxygen Administer 2 L/min into each nostril nightly Nightly and PRN pantoprazole DR 40 mg EC tablet Take 1 tablet (40 mg total) by mouth 2 (two) times a day for 120 doses For: Stress Ulcer Prophylaxis Commonly known as: PROTONIX sucralfate 100 mg/mL suspension Take 10 mL (1 g total) by mouth 4 (four) times a day (with meals and nightly) for 240 doses Commonly known as: CARAFATE tacrolimus 0.5 mg immediate-release capsule Take 1 capsule (0.5 mg total) by mouth every other day Trelegy Ellipta 200-62.5-25 mcg inhaler Inhale 1 puff daily Generic drug: hlicnylivyq-izewqlsvm-vadhigjb voriCONAZOLE 200 mg tablet TAKE ONE TABLET BY MOUTH TWICE DAILY Commonly known as: VFEND Xarelto 20 mg tablet TAKE ONE TABLET BY MOUTH DAILY AT 9 AM Generic drug: rivaroxaban zinc gluconate 50 mg tablet Take 1 tablet (50 mg total) by mouth daily * This list has 2 medication(s) that are the same as other medications prescribed for you. Read the directions carefully, and ask your doctor or other care provider to review them with you. Outpatient Follow-Up: Future Appointments Date Time Provider Department Center 07/01/2024 9:30 AM CANDELARIO GAMA IM ONC CAM 7 ONC LAB CAM7 [facility] [facility] 07/01/2024 10:20 AM Narcisa Kilgore NP BMT CAM 7 BMT 07/07/2024 10:40 AM Martín Pinzon MD ID TABEX 100 [facility] Inf Dis Cosigned by Marcela Silva MD at 06/24/2024 1:43 PM CDT documented in this encounter Discharge Instructions * Discharge Instructions* Esthela Fowler MD - 06/15/2024 5:34 PM CDT Dear Bri Jones, You were admitted to the hospital for a lung infection for which you are taking antibiotics. Beforeyou left, the respiratory therapists did a walk test and found that you do not need oxygen with rest or with exercise; please continue your nightly oxygen. Please continue to take MINOCYCLINE 200mg two times per day through 06/27. Please follow-up in ID clinic in 2-3 weeks; ID will call you to set up an appointment. It is very important that you take your medications as directed in your medication list. Important new medications and changes are as follows: New medications START taking minocycline (Minocin) 200 mg two times daily for Stenotrophomonas infection through 06/27 Changes to old medications Please start taking Glargine 5 units before bedtime. Continue your insulin slide with meals. Follow-up appointments It is very important that you attend these follow-up appointments. Please follow up with Dr. Martín Pinzon in Infectious Diseases who specializes in mycobacterial infections If you have any questions or concerns, please make sure to contact your healthcare provider. When to Call - Hematologic Malignancies Program call Right Away if you have: A temperature of 100.5?? F or 38?? C DO NOT take Acetaminophen (Tylenol), Aspirin, or Ibuprofen (Motrin, Advil) unless your physician tells you to Shaking Chills A hard time breathing - shortness of breath at rest or after minimal exertion Vomiting that is not controlled by your anti-nausea medicine Nausea that prevents you from eating, drinking, or taking medicine, and is not being controlled by your anti-nausea medicine Unusual or heavy bleeding (saturating one dressing/pad an hour) Blood in urine, black/bright red blood in stool, or nosebleeds Feeling confused or very sleepy - Weakness or dizziness Pain of increased intensity or development of new pain, including strong headaches Central Line Pulled Out or Cut Saturday-Saturday {[facility]:[id number]:: } and let them know it's urgent between the hours of 8 AM and 5 PM After Hours Call our exchange at and ask for the oncology on-call provider Weekends, Holidays, & after 5 PM Saturday-Fridays Leave a message for: General Questions Appointment Changes If you are unable to get your medicine at the pharmacy Pain or skin changes at the drug injection site Diarrhea for more than 2 days that is not controlled by anti-diarrhea medicine Watery diarrhea, stomach cramps, or nausea that doesn't go away No bowel movement for 2 or more days Frequent and/or painful urinating Persistent cough or a cough producing yellow or green mucous Mouth sores Skin rash Avoid taking any non-prescription medicine without your doctor's approval Saturday-Saturday Via Polleverywhere or between the hours of 8 AM and 5 PM Refills Please contact your pharmacy directly for refills or send requests via Polleverywhere. Please allow at least 2 business days for processing your requests. Narcotics cannot be refilled over after hours/weekends/holidays. * Discharge Instr - Other Orders* Marry Abreu RN - 06/16/2024 12:10 PM CDT [employer] [place] [facility] Office: [facility] [place] Medical Equipment (2 wheeled walker) [phone] documented in this encounter Medications at Time [...] flash glucose scanning reader (FreeStyle Evaristo 2 [place]) [facility] Use to test blood glucose continuously 1 each 1 03/17/20 23 flash glucose sensor (FreeStyle Evaristo 2 Sensor) kitIndications:Type 2 diabetes mellitus with hyperosmolarity 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, with long-term current use of insulin ([facility]) Change sensor every 14 days 2 kit [...] for 7 doses 7 capsule 06/24/20 24 acetaminophen (TYLENOL) 500 mg tablet Take 2 tablets (1,000 mg total) by mouth 2 (two) times a day as needed for pain acyclovir (ZOVIRAX) 400 mg tablet Take 1 tablet (400 mg total) by mouth every 8 (eight) hours 024 albuterol HFA (PROVENTIL HFA,VENTOLIN HFA,PROAIR HFA) 90 mcg/actuation inhalerIndications:Chron ic obstructive pulmonary disease, unspecified COPD type ([facility]) Inhale 2 puffs every 6 (six) hours as needed for wheezing 6.7 g 3 01/15/20 24 024 ascorbic acid 500 mg tablet,chewable Take 1 tablet/chew tab (500 mg total) by mouth daily 024 atorvastatin (LIPITOR) 40 mg tabletIndications:AML (acute myeloid leukemia) in remission ([facility]),Type 2 diabetes mellitus with hyperglycemia, with long-term current use of insulin ([facility]),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[facility]),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[facility]),Pure hypercholesterolemia Take 1 tablet (40 mg total) by mouth daily 30 tablet 6 01/15/20 024 diphenhydrAMINE-acetamin ophen (TYLENOL PM) 25-500 mg tablet Take 2 tablets by mouth nightly as needed for sleep 024 frkgigcoxpn-helkztdac-hx lanter (Trelegy Ellipta) 200-62.5-25 mcg inhaler Inhale 1 puff daily 024 gabapentin (NEURONTIN) 300 mg capsuleIndications:Acute myeloblastic leukemia, in remission ([facility]) TAKE ONE CAPSULE BY MOUTH FOUR TIMES DAILY @ [id number]-9PM 120 capsule 11 05/13/20 24 025 insulin glargine (LANTUS, SEMGLEE) 100 unit/mL vial for injectionIndications:Margaret betes Mellitus Inject 5 Units under the skin nightly 1.5 mL 1 06/24/20 24 024 insulin lispro (HumaLOG, ADMELOG) 100 unit/mL [...] daily 30 patch 1 03/02/[address] (PROTONIX) 40 mg EC tabletIndications:Stress Ulcer Prophylaxis Take 1 tablet (40 mg total) by mouth 2 (two) times a day for 120 doses 60 tablet 1 03/02/20 24 024 sucralfate (CARAFATE) suspension 1 gram/10 mL Take 10 mL (1 g total) by mouth 4 (four) times a day (with meals and nightly) for 240 doses 1200 mL 03/02/20 24 024 tacrolimus 0.5 mg immediate-release capsule Take 1 capsule (0.5 mg total) by mouth every other day 024 voriCONAZOLE (VFEND) 200 mg tabletIndications:Acute myeloblastic leukemia, in remission (HCC) TAKE ONE TABLET BY MOUTH TWICE DAILY 60 tablet 05/05/20 24 024 zinc gluconate 50 mg tablet Take 1 tablet (50 mg total) by mouth daily 024 documented as of this encounter Ordered Prescriptions Prescription Sig Dispense Quantity Refills Last Filled Start Date End Date minocycline (MINOCIN,DYNACIN) 100 mg capsuleIndications :Pneumonia, Hospital Acquired Take 2 capsules (200 mg total) by mouth 2 (two) times a day for 7 doses 7 capsule 06/24/2024 4 insulin glargine (LANTUS, SEMGLEE) 100 unit/mL vial for injectionIndicatio ns:Diabetes Mellitus Inject 5 Units under the skin nightly 1.5 mL 1 06/24/2024 4 minocycline (MINOCIN,DYNACIN) 100 mg capsuleIndications :Pneumonia, Hospital Acquired Take 2 capsules (200 mg total) by mouth 2 (two) times a day for 9 doses 7 capsule 06/24/2024 4 documented in this encounter Discharge Disposition Disposition Code Departure Means Destination Comment s Discharge to home or self care documented in this encounter Progress Notes * Teresa Yoder RN - 06/24/2024 11:19 AM CDT 06/24/24 1113 Discharge Summary Discharge Disposition Private residence Recommended Discharge Level of Care Private residence Actual Discharge Level of Care Private residence Does Actual Level of Care Match Care Team Recommendation? Yes Post Acute Care Plan Home Care Services N/A OP Services N/A DME Yes Durable Medical Equipment Oxygen;Walker (wheeled) Oxygen Detail [facility] DME Name and Contact Number [phone] Post Acute Care Facility N/A Discharge Additional Assistance Financial assistance Cab voucher needed Does the patient need discharge transport arranged? Yes Type of Transportation Cab Has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 xymgvnbgi-xubpxmqlowp-oaiquhlmvfywiha-lidocaine bacitracin-polymyxin B camphor-menthoL dextrose OR dextrose glucagon heparin flush (porcine) loperamide lubricant ramelteon sodium chloride sodium chloride 0.9% sodium chloride 0.9% sodium chloride 0.9% sodium chloride 0.9% Recent Labs Lab Units 06/22/24 0439 06/21/24 0232 06/20/24 0359 SODIUM mmol/L 140 141 141 POTASSIUM PLASMA mmol/L 3.5 3.3 3.3 CHLORIDE mmol/L 99 97 102 CO2 mmol/L 35* 34* 34* BUN SERUM mg/dL 35* 20 19 CREATININE mg/dL 0.79* 0.59* 0.60* [id number]-[id number] mL/min/1.73 m2 >90 >90 >90 CALCIUM mg/dL 8.9 8.9 8.4* ALBUMIN g/dL 3.0* -- 3.1* PHOSPHORUS PLASMA mg/dL 3.5 2.2* 1.7* MAGNESIUM mg/dL 1.3* 1.5 1.5 Recent Labs Lab Units 06/22/24 0740 06/22/24 0439 06/21/24 2137 06/21/24 1946 06/21/24 1353 06/21/24 0725 06/21/24 0232 GLUCOSE mg/dL -- 203* -- -- -- -- 240* POC GLUCOSE MONITOR mg/dL 190 -- 122 264* 157 160 -- ALT Date Value Ref Range Status 06/22/2024 65 (H) 7 - 55 Units/L Final AST Date Value Ref Range Status 06/22/2024 57 (H) 10 - 50 Units/L Final Alk phos Date Value Ref Range Status 06/22/2024 170 (H) 40 - 130 Units/L Final Lab Results Component Value Date HGBA1C 6.7 (H) 06/15/2024 HDL 82 02/28/2024 LDLCALC 37 02/28/2024 CHOL 152 02/28/2024 TRIG 163 (H) 02/28/2024 NURSING ASSESSMENT: Last BM Date: 06/21/24 Bowel Sounds (All Quadrants): Audible Rolf Scale Score: 20 Skin Integrity: Bruising Vital Signs BP: 112/60 Temp: 37.1 ??C (98.8 ??F) Pulse: 87 Resp: 18 SpO2: 97 % Intake/Output Summary (Last 24 hours) at 06/22/2024 1111 Last data filed at 06/22/2024 0934 Gross per 24 hour Intake 1630 ml Output 1525 ml Net 105 ml Adult Malnutrition Scoring Tool (MST) What diet do you follow at home?: Regular Have You Recently Lost Weight Without Trying?: [...] to get more.: Never true Anthropometrics Weight: 67 kg (147 lb 11.3 oz) Admission Weight : 58.2 kg Weight Change: 3.10 kg (6.83 lbs) IBW/kg (Calculated) : 78 kg Height: 180.3 cm (5' 11 ) Weight in (lb) to have BMI = 25: 178.9 BMI (Calculated): 20.6 Wt Readings from Last 10 Encounters: 06/18/24 67 kg (147 lb 11.3 oz) 03/28/24 61 kg (134 lb 8 oz) 03/05/24 62.4 kg (137 lb 9.6 oz) 06/12/23 67.5 kg (148 lb 12.8 oz) 05/22/23 66.5 kg (146 lb 8 oz) 02/18/23 65.1 kg (143 lb 9.6 oz) 02/18/23 64.1 kg (141 lb 6.4 oz) 10/22/22 65.4 kg (144 lb 3.2 oz) 02/28/22 65.8 kg (145 lb) 02/14/22 65.8 kg (145 lb) ESTIMATED NEEDS: . Dietary Orders (From admission, onward) Start Ordered 06/20/24 193 Adult Diet Restricted; Mechanical Soft; Consistent Carbohydrate Diet effective now Question Answer Comment ([facility]) Diet type Restricted Modified Consistency: Mechanical Soft Diabetic: Consistent Carbohydrate 06/20/24 1935 06/16/24 1700 Oral Nutrition Supplements ([facility]) Select Supplement: Ensure PLUS High Protein - Chocolate All Meals Question: ([facility]) Select Supplement: Answer: Ensure PLUS High Protein - Chocolate 06/16/24 1324 06/15/24 2100 Bedtime snack At bedtime Comments: If bedtime BG is less than 100mg/dl, give patient a 15 gram carbohydrate snack. 06/15/24 1631 Allergies: Reviewed. IMPRESSION: Pt seen for follow up. Pt ate 100% of breakfast this morning. Pt reports hx of food getting stuck , ate steak recently that got stuck and required a scope. Pt rpeorts he doesn't have his dentures with him and because of hx of food getting stuck, requested mechanical soft diet. Pt reports loose BMs, BM x 4 - taking imodium. Pt denied n/v. Low mag (1.3) Reported UBW of 140 lbs. Weight hx reviewed. Pt weighed 137 lbs on 03/05/24. His current weight is 129 lbs. This is a 5.9% weight loss x approximately 3 months. He has visible fat loss and muscle wasting. ASPEN MALNUTRITION ASSESSMENT: Date of completion: 06/16/24 ASPEN/AND Malnutrition Screening: Chronic illness or injury mild/moderate Subcutaneous Fat Loss Severity: Mild/Moderate Muscle Mass Loss Severity: Mild/Moderate Patient Meets Criteria for Moderate Malnutrition: Yes NUTRITION FOCUSED PHYSICAL EXAM: Completed. Subcutaneous Fat Loss Orbital Region - Surrounding the Eye: Dark circles Cheek Region - Buccal Fat: Somewhat sunken appearance Upper Arm Region - Triceps/Biceps: Some depth pinch but not ample Muscle Loss [facility] - Temporalis Muscle: Slight depression Clavicle Bone Region - Pectoralis Major, Deltoid, Trapezius Muscles: Not visible in male, visible but not prominent in female Clavicle and Acromion Bone Region - Deltoid Muscle: Shoulder to arm joint looks square NUTRITION DIAGNOSIS: Nutrition Diagnosis 1: Protein-Calorie Malnutrition - Moderate Related to: Chronic illness/injury Evidenced by: Subcutaneous fat loss, Weight loss, Muscle loss INTERVENTION(S): Summary: Assess for nutrition changes, Meals and snacks, Medical food supplement Continue mechanical soft diet Initiate Ensure Plus HP with meals (chocolate flavor). Discussed foods that can help add bulk to the stool Monitor intake, weight, labs, and tolerance to diet. GOAL(S): Adequate nutrition to meet estimated needs by next assessment MONITORING/EVALUATION: Appetite, Stool patterns, I/O, Labs, Weight changes Delmy Reddy MS, RD, LD Cell: Weekend On-Call: [phone] * Esthela Fowler MD - 06/22/2024 7:37 AM CDT Hospitalist Consult Daily Progress Note as requested by BMT Physician Division of Hospital Medicine Name: Bri Jones : 1965 Today's Date: June 22, 2024 Age: 58 y.o. male Admission: 06/15/2024 Bed: [id number] LOS: 7 days Subjective Chief complaint: no complaints. Identifier: Bri Jones is a 58 y.o. 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 Interval History No other events overnight. Afebrile, VSS, on 2.5L NC. Eating well this am with mechanical soft - Cr 0.79, CO2 35, stable, Phos 2.2>3.5, Mg 1.3 s/p 4mg IV - Slightly elevated LFTs today ALP 221>170, AST 57/ALT 65 - WBC 13.2, Plt 403 - Plan for walking O2 test; likely DC to home (roommate home tomorrow) - Patient with difficulty ambulating with cane, ordered OP DME for 2 wheeled walker to assist with ambulation at home per patient preference; Patient has roommate at home to assist as well Objective Scheduled Meds PRN Meds Infusions acyclovir, 400 mg, oral, Q8H atorvastatin, 40 mg, oral, Daily nxcwerdcljc-ucjtjnwmf-vbohviju, 1 puff, inhalation, Daily gabapentin, 300 mg, oral, QID guaiFENesin ER, 1,200 mg, oral, BID heparin flush (porcine), 5 mL, intra-catheter, BID insulin lispro, 0-10 Units, subcutaneous, TID with meals insulin lispro, 0-5 Units, subcutaneous, Nightly ipratropium-albuteroL, 3 mL, nebulization, QID (RT) minocycline, 200 mg, oral, BID - special montelukast, 10 mg, oral, Nightly mycophenolate mofetil, 1,000 mg, oral, BID nicotine, 1 patch, transdermal, Daily pantoprazole DR, 40 mg, oral, BID ramelteon, 8 mg, oral, Nightly rivaroxaban, 20 mg, oral, Daily with dinner sodium chloride 0.9%, 0.5-20 mL, intra-catheter, Q8H ROSA MARIA sodium chloride 0.9%, 0.5-20 mL, intra-catheter, Q8H ROSA MARIA sodium chloride 0.9%, 30 mL, swish & spit, QID tacrolimus, 0.5 mg, oral, Every other day voriCONAZOLE, 200 mg, oral, BID acetaminophen, 650 mg, oral, Q6H PRN aluminum & magnesium wmvkknpzp-eajoirfpytn-wansnqwwqqrigsx-lidocaine, 15 mL, swish & swallow, QID PRN bacitracin-polymyxin B, 1 Application, topical, Q4H PRN camphor-menthoL, , topical, Q2H PRN dextrose, 15 g, oral, Q15 Min PRN OR dextrose, 250 mL, intravenous, Q15 Min PRN glucagon, 1 mg, intramuscular, Q30 Min PRN heparin flush (porcine), 2-5 mL, intra-catheter, PRN loperamide, 2 mg, oral, TID PRN lubricant, 2 drop, each eye, Q4H PRN ramelteon, 8 mg, oral, Nightly PRN sodium chloride, 2 spray, each nostril, Q1H PRN sodium chloride 0.9%, 0.5-20 mL, intra-catheter, PRN sodium chloride 0.9%, 0.5-20 mL, intra-catheter, PRN sodium chloride 0.9%, 30 mL/hr, intravenous, Continuous PRN sodium chloride 0.9%, 0-250 mL, intravenous, PRN sodium chloride 0.9%, 30 mL/hr, Last Rate: 30 mL/hr (06/22/24 0751) sodium chloride 0.9%, 0-250 mL Vitals Most Recent Vitals: T 37.1 ??C (98.8 ??F), HR 87, BP 112/60, RR 18, SpO2 97 %. 24hr Min/Max: Temp Min: 36.3 ??C (97.3 ??F) Max: 37.1 ??C (98.8 ??F) Pulse Min: 84 Max: 96 BP Min: 100/57 Max: 129/80 Resp Min: 16 Max: 18 SpO2 Min: 95 % Max: 100 % Intake/Output Summary (Last 24 hours) at 06/22/2024 1103 Last data filed at 06/22/2024 0934 Gross per 24 hour Intake 1630 ml Output 1525 ml Net 105 ml ICE Score: No data found. Baseline ICE Score: CRS and ICANS Grading: No data found. Physical Exam Vital signs and recent nursing notes reviewed. GENERAL: no acute distress. THROAT: oral mucosa moist. No lesions appreciated CV: RRR, no murmurs. No LE edema. PULM: decreased breath sounds, mild ronchi. GI: BS+, non distended, non tender : deferred MSK: no joint swelling SKIN: no new rashes NEURO: Alert and oriented. Moves all extremities. No focal defects appreciated Lines, Drains, Airways Peripheral IV 06/22/24 20 G Left Antecubital (Active) Labs/Diagnostic Review CBC: Recent Labs Lab Units 06/22/24 0439 WBC K/cumm 13.2* HEMOGLOBIN g/dL 10.2* HEMATOCRIT % 29.8* MCV fL 98.7* MCH pg 33.8* MCHC g/dL 34.2 RDW CV % 15.1* RDWSD fL 54.9* MPV fL 9.9 NEUTROS ABS K/cumm 7.4* LYMPHS PCT % 23.9 CMP: Recent Labs Lab Units 06/22/24 0740 06/22/24 0439 SODIUM mmol/L -- 140 POTASSIUM PLASMA mmol/L -- 3.5 CO2 mmol/L -- 35* BUN SERUM mg/dL -- 35* GLUCOSE mg/dL -- 203* POC GLUCOSE MONITOR mg/dL 190 -- CREATININE mg/dL -- 0.79* CALCIUM mg/dL -- 8.9 CHLORIDE mmol/L -- 99 ALBUMIN g/dL -- 3.0* AST Units/L -- 57* ALT Units/L -- 65* ALK PHOS Units/L -- 170* BILIRUBIN TOTAL mg/dL -- 0.2 TOTAL PROTEIN g/dL -- 6.8 ANIONGAP mmol/L -- 6 LDH: Recent Labs Lab Units 06/22/24 0439 LACTATE DEHYDROGENASE (LDH) Units/L 272* INR 1.86 Uric Acid:3.0 Tacrolimus level:- Sirolimus level: - Cyclosporine level: - (Labs above are the most recent result obtained in the last 24 hours unless otherwise specified. For additional labs/trends, see Epic.) I have reviewed the laboratory results. Imaging Review No results found. I have independently reviewed and interpreted OSH CT chest 05/28, CXR 06/16. RUL cavitary lesion. Bilateral emphysematous changes. Assessment/Plan Bri Jones is a 58 y.o. 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 # Acute on chronic hypoxic respiratory failure # Right-sided lung infiltrate # Non-TB mycobacterial infection # Stenotrophomonas infection # COPD exacerbation Patient is admitted for worsening right upper lobe lung disease with cavitary lesion. He became acutely hypoxic after admission requiring transfer to the ICU for BiPAP. He improved quickly and was weaned to 2L NC by transfer to BMT floor. Pulmonology performed BAL on 06/16 notable for mycobacterium (non-TB by PCR) and stenotrophomonas. Likely multifactorial with primarily infectious process with contributions from emphysematous COPD and subsequent mucus plugging with evidence of bronchiectasis on imaging. Diagnostics: - 06/12 CMV negative - 06/15 RVP negative - 06/16 BAL AFB stain with moderate acid-fast bacilli - 06/16 BAL AFB culture NGTD - 06/16 BAL TB PCR negative - 06/16 BAL culture with Stenotrophomonas maltophila, susceptible to Bactrim, levofloxacin, and minocycline - 06/16 BAL Pneumocystis DFA negative - 06/16 Fungal serologies (Crypto, galactomannan, Blasto) negative - 06/16 Fungal cultures NGTD - 06/16 BCx NG - 06/19 Urine Histo antigen pending Plan: - Transplant ID c/s, appreciate recs - Prednisone 40 mg PO daily (06/16 - 06/20) for COPD exacerbation - Azithromycin 500 mg daily (06/16 - 06/18) for COPD exacerbation - Vancomycin (06/16 - 06/18), MRSA nares negative - Pip-tazo 4.5 g QID (06/16 - 06/20) for pneumonia - Minocycline 200 mg BID x 10 days (06/18 - 06/27) for Steno - Trelegy Ellipta daily - DuoNebs QID - Home montelukast 10 mg daily - Anti-tussives/expectorants PRN - Outpatient follow-up with Dr. Pinzon for non-TB mycobacterium # AML s/p allo-SCT [address] Del Valle. Diagnosed in 2008 s/p 7+3 and HiDAC consolidation x3 followed by decitabine maintenance on [facility] [id number] protocol. Relapsed s/p allo- SCT from sister 08/27 match D0 = 11/09/09. Complicated by potential GVHD of eyes and lungs on MMF 1 g BID, tacrolimus 0.5 mg every other day. - MMF 1 g BID - Tacrolimus 0.5 every other day - OI ppx: acyclovir 400 mg TID, voriconazole 200 mg BID # Heart failure with preserved ejection fraction TTE 03/28/24 LVEF 50-55%, low-normal systolic function, small pericardial effusion. NT-proBNP 1012 on admission. - CTM # Type 2 diabetes mellitus A1c 6.7% - SSI with POCT BG - NPH with steroids # Peripheral neuropathy - Home gabapentin 300 mg QID # DVT DVT lower extremity in 2012, IJ 2017, with history of PE in 01/2013. - Home rivaroxaban 20 mg daily # Erosive esophagitis # Stress ulcer prophylaxis - Pantoprazole 40 mg BID # Hyperlipidemia - Atorvastatin 40 mg daily # Tobacco use disorder 0.5 ppd x 40 years, still smokes. - Nicotine replacement therapy Code status : Full Code Diet : Adult Diet Restricted; Mechanical Soft; Consistent Carbohydrate PT/OT Dispo Rec : PT Recommendation/Plan: Home with intermittent assist / Supplementary Attestation My total encounter time on this service date was 48 minutes which was spent performing a [id number] encounter and personally completing the provider-level activities documented in the note. This includes time spent prior to the visit and after the visit in direct care of the patient. This time does not include time spent in any separately reportable services. Esthela Fowler MD Cosigned by Marcela Silva MD at 06/22/2024 3:19 PM CDT Associated attestation - Marcela Silva MD - 06/22/2024 3:19 PM CDT I have seen and examined the patient on 06/22/24. I agree with the findings and plan of care as documented in the resident/fellow's note. No new issues. Home tomorrow. Marcela Silva MD * Marcela Silva MD - 06/21/2024 3:45 PM CDT B[employer] MARROW TRANSPLANT PROGRESS NOTE Name: Bri Jones : 1965 Today's Date: June 21, 2024 Age: 58 y.o. male Admit Date: 06/15/2024 Bed: [id number] LOS: 6 days SUBJECTIVE CHIEF COMPLAINT Right upper lobe cavitary lesion INTERVAL HISTORY No new issues. Doing fine overall. OBJECTIVE Scheduled Meds PRN Meds acyclovir, 400 mg, oral, Q8H atorvastatin, 40 mg, oral, Daily hsqmbewiqfh-tylzsiiue-zfrqhsnx, 1 puff, inhalation, Daily gabapentin, 300 mg, oral, QID guaiFENesin ER, 1,200 mg, oral, BID heparin flush (porcine), 5 mL, intra-catheter, BID insulin lispro, 0-10 Units, subcutaneous, TID with meals insulin lispro, 0-5 Units, subcutaneous, Nightly ipratropium-albuteroL, 3 mL, nebulization, QID (RT) minocycline, 200 mg, oral, BID - special montelukast, 10 mg, oral, Nightly mycophenolate mofetil, 1,000 mg, oral, BID nicotine, 1 patch, transdermal, Daily pantoprazole DR, 40 mg, oral, BID ramelteon, 8 mg, oral, Nightly rivaroxaban, 20 mg, oral, Daily with dinner sodium chloride 0.9%, 0.5-20 mL, intra-catheter, Q8H ROSA MARIA sodium chloride 0.9%, 0.5-20 mL, intra-catheter, Q8H ROSA MARIA sodium chloride 0.9%, 30 mL, swish & spit, QID tacrolimus, 0.5 mg, oral, Every other day voriCONAZOLE, 200 mg, oral, BID ??? acetaminophen, 650 mg ? ? aluminum & magnesium fxhufoiuh-akuzvbpdrnb-vpcyktyvvcikarn-lidocaine, 15 mL ??? bacitracin-polymyxin B, 1 Application ??? camphor-menthoL, ??? dextrose, 15 g OR dextrose, 250 mL ??? glucagon, 1 mg ??? heparin flush (porcine), 2-5 mL ??? lubricant, 2 drop, 2 drop at 06/16/242125 ??? ramelteon, 8 mg, 8 mg at 06/19/242326 ??? sodium chloride, 2 spray ??? sodium chloride 0.9%, 0.5-20 mL ??? sodium chloride 0.9%, 0.5-20 mL ??? sodium chloride 0.9%, 30 mL/hr, Last Rate: 30 mL/hr at 06/18/241832, 30 mL/hr at 06/18/241832 ??? sodium chloride 0.9%, 0-250 mL Infusions sodium chloride 0.9%, 30 mL/hr, Last Rate: 30 mL/hr (06/18/241832) sodium chloride 0.9%, 0-250 mL VITALS Most Recent Vitals: T 36.3 ??C (97.3 ??F), HR 84, BP 111/68, RR 16, SpO2 100 %. 24hr Min/Max: Temp Min: 36.3 ??C (97.3 ??F) Max: 36.6 ??C (97.8 ??F) Pulse Min: 76 Max: 93 BP Min: 111/68 Max: 134/85 Resp Min: 16 Max: 18 SpO2 Min: 99 % Max: 100 % Intake/Output Summary (Last 24 hours) at 06/21/2024 1545 Last data filed at 06/21/2024 1358 Gross per 24 hour Intake 1775 ml Output 1825 ml Net -50 ml Weight: Weight: 67 kg (147 lb 11.3 oz) PHYSICAL EXAM Constitutional: NAD, chronically ill-appearing Eyes: PERRL, EOMI, anicteric HENT: NCAT. Oropharynx normal, moist mucus membranes, poor/missing dentition Lungs: Rhonchi in bilateral lower lung leger, improved from prior Cardiovascular: RRR, normal S1 and S2 GI: Soft, non-tender, non-distended, bowel sounds positive Skin: No rashes, lesions or bruises Extremities: Normal without edema or cyanosis Neurologic: AOx4, no gross neurologic deficits Psychiatric: Appropriate affect and mood LINES/DRAINS/AIRWAYS Peripheral IV 06/16/24 20 G Right Antecubital (Active) Peripheral IV 06/16/24 20 G Left Antecubital (Active) LABS/DIAGNOSTICS CBC Recent Labs Lab Units 06/21/24 0232 WBC K/cumm 14.0* HEMOGLOBIN g/dL 10.5* HEMATOCRIT % 32.2* MCV fL 99.4* MCH pg 32.4 MCHC g/dL 32.6 RDW CV % 15.0* RDWSD fL 55.0* MPV fL 10.2 NEUTROS ABS K/cumm 9.7* LYMPHS PCT % 19.3 CMP Recent Labs Lab Units 06/21/24 1353 06/21/24 0725 06/21/24 0232 06/20/24 0736 06/20/24 0359 SODIUM mmol/L -- -- 141 -- 141 POTASSIUM PLASMA mmol/L -- -- 3.3 -- 3.3 CO2 mmol/L -- -- 34* -- 34* BUN SERUM mg/dL -- -- 20 -- 19 GLUCOSE mg/dL -- -- 240* -- 271* POC GLUCOSE MONITOR mg/dL 157 < > -- < > -- CREATININE mg/dL -- -- 0.59* -- 0.60* CALCIUM mg/dL -- -- 8.9 -- 8.4* CHLORIDE mmol/L -- -- 97 -- 102 ALBUMIN g/dL -- -- -- -- 3.1* AST Units/L -- -- -- -- 48 ALT Units/L -- -- -- -- 38 ALK PHOS Units/L -- -- -- -- 212* BILIRUBIN TOTAL mg/dL -- -- -- -- 0.2 TOTAL PROTEIN g/dL -- -- -- -- 7.2 ANIONGAP mmol/L -- -- 10 -- 5 < > = values in this interval not displayed. LDH Recent Labs Lab Units 06/18/24 0356 LACTATE DEHYDROGENASE (LDH) Units/L 238 INR - Uric Acid - IMAGING No results found. MICROBIOLOGY Lab Results Component Value Date MICROBIOLOGY (.) 06/19/2024 Final Report: Enterococcus species, vancomycin resistant MICROBIOLOGY Final Report: No growth 06/16/2024 MICROBIOLOGY Final Report: No growth 06/16/2024 MICROBIOLOGY (.) 06/16/2024 Preliminary Report: No growth of acid-fast bacilli to date MICROBIOLOGY Preliminary Report: No growth of fungus to date 06/16/2024 MICROBIOLOGY 06/16/2024 Direct Stain Examination - Final: Negative for: Pneumocystis jirovecii MICROBIOLOGY (.) 06/16/2024 Final Report: Greater than or equal to 1,000 colonies/ml of Stenotrophomonas maltophilia For susceptibility results, refer to accession number [id number] on the bronch wash culture from06/16/24 Plus growth of clinically insignificant bacterial oscar. MICROBIOLOGY Final Report: Target not detected 06/16/2024 MICROBIOLOGY (.) 06/16/2024 Preliminary Report: Growth in broth only Acid Fast Bacilli Negative for Mycobacterium tuberculosis complex using the Xpert MTB PCR assay. This assay has been cleared by the [place] Food and Drug Administration and its analytical performance characterisitics verified by the [facility]. Additional testing to follow. MICROBIOLOGY Preliminary Report: No growth of fungus to date 06/16/2024 MICROBIOLOGY (.) 06/16/2024 Preliminary Report - Final Review Pendin,000 to 100,000 colonies/mL of Stenotrophomonas maltophilia Plus growth of clinically insignificant bacterial oscar. MICROBIOLOGY Final Report: Target not detected 06/16/2024 MICROBIOLOGY Final Report: Target not detected 06/16/2024 MICROBIOLOGY Final Report: Target not detected 06/16/2024 I have reviewed the imaging and lab results above. ASSESSMENT & PLAN Bri Jones is a 58 y.o. 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 # Acute on chronic hypoxic respiratory failure # Right-sided lung infiltrate # Non-TB mycobacterial infection # Stenotrophomonas infection # COPD exacerbation Patient is admitted for worsening right upper lobe lung disease with cavitary lesion. He became acutely hypoxic after admission requiring transfer to the ICU for BiPAP. He improved quickly and was weaned to 2L NC by transfer to BMT floor. Pulmonology performed BAL on 06/16 notable for mycobacterium (non-TB by PCR) and stenotrophomonas. Likely multifactorial with primarily infectious process with contributions from emphysematous COPD and subsequent mucus plugging with evidence of bronchiectasis on imaging. Diagnostics: - 06/12 CMV negative - 06/15 RVP negative - 06/16 BAL AFB stain with moderate acid-fast bacilli - 06/16 BAL AFB culture NGTD - 06/16 BAL TB PCR negative - 06/16 BAL culture with Stenotrophomonas maltophila, susceptible to Bactrim, levofloxacin, and minocycline - 06/16 BAL Pneumocystis DFA negative - 06/16 Fungal serologies (Crypto, galactomannan, Blasto) negative - 06/16 Fungal cultures NGTD - 06/16 BCx NGTD - 06/19 Urine Histo antigen pending Plan: - Transplant ID c/s, appreciate recs - Prednisone 40 mg PO daily (06/16 - 06/20) for COPD exacerbation - Azithromycin 500 mg daily (06/16 - 06/18) for COPD exacerbation - Vancomycin (06/16 - 06/18), MRSA nares negative - Pip-tazo 4.5 g QID (06/16 - 06/20) for pneumonia - Minocycline 200 mg BID (06/18 - 06/27) for Steno - Trelegy Ellipta daily - DuoNebs QID - Home montelukast 10 mg daily - Anti-tussives/expectorants PRN - Outpatient follow-up with Dr. Pinzon for non-TB mycobacterium # AML s/p allo-SCT [address] Del Valle. Diagnosed in 2008 s/p 7+3 and HiDAC consolidation x3 followed by decitabine maintenance on [facility] [address] protocol. Relapsed s/p allo- SCT from sister 08/27 match D0 = 11/09/09. Complicated by potential GVHD of eyes and lungs on MMF 1 g BID, tacrolimus 0.5 mg every other day. - MMF 1 g BID - Tacrolimus 0.5 every other day - OI ppx: acyclovir 400 mg TID, voriconazole 200 mg BID # Heart failure with preserved ejection fraction TTE 03/28/24 LVEF 50-55%, low-normal systolic function, small pericardial effusion. NT-proBNP 1012 on admission. - CTM # Type 2 diabetes mellitus A1c 6.7% - SSI with POCT BG - NPH with steroids # Peripheral neuropathy - Home gabapentin 300 mg QID # DVT DVT lower extremity in 2012, IJ 2018, with history of PE in 01/2013. - Home rivaroxaban 20 mg daily # Erosive esophagitis # Stress ulcer prophylaxis - Pantoprazole 40 mg BID # Hyperlipidemia - Atorvastatin 40 mg daily # Tobacco use disorder 0.5 ppd x 40 years, still smokes. - Nicotine replacement therapy Marcela Silva MD 06/21/2024 3:45 PM * Sarbjit Velez MD - 06/21/2024 7:22 AM CDT Hospitalist Consult Daily Progress Note as requested by BMT Physician Division of Hospital Medicine Name: Bri Jones : 1965 Today's Date: June 21, 2024 Age: 58 y.o. male Admission: 06/15/2024 Bed: [place] [id number] LOS: 6 days BMT Day: Subjective Chief complaint: no complaints. 0 Interval History Patient had difficulty swallowing food, getting stuck, passed with water sips, changed diet to [employer]. No other events overnight. Afebrile, VSS, on 4 L HFNC. Patient states feeling better. Having some loose BM. Cr 0.59 CO2 34, stable Phos 1.7 > 2.2 WBc 14.0, Plt 440 Objective Scheduled Meds PRN Meds Infusions acyclovir, 400 mg, oral, Q8H atorvastatin, 40 mg, oral, Daily iqihlvmjdin-uplwifahf-ifuzqmyx, 1 puff, inhalation, Daily gabapentin, 300 mg, oral, QID guaiFENesin ER, 1,200 mg, oral, BID heparin flush (porcine), 5 mL, intra-catheter, BID insulin lispro, 0-10 Units, subcutaneous, TID with meals insulin lispro, 0-5 Units, subcutaneous, Nightly ipratropium-albuteroL, 3 mL, nebulization, QID (RT) minocycline, 200 mg, oral, BID - special montelukast, 10 mg, oral, Nightly mycophenolate mofetil, 1,000 mg, oral, BID nicotine, 1 patch, transdermal, Daily pantoprazole DR, 40 mg, oral, BID ramelteon, 8 mg, oral, Nightly rivaroxaban, 20 mg, oral, Daily with dinner sodium chloride 0.9%, 0.5-20 mL, intra-catheter, Q8H ROSA MARIA sodium chloride 0.9%, 0.5-20 mL, intra-catheter, Q8H ROSA MARIA sodium chloride 0.9%, 30 mL, swish & spit, QID tacrolimus, 0.5 mg, oral, Every other day voriCONAZOLE, 200 mg, oral, BID acetaminophen, 650 mg, oral, Q6H PRN aluminum & magnesium dvahdegxe-zwhlgfgrpod-ptuzrvjfnhpfmje-lidocaine, 15 mL, swish & swallow, QID PRN bacitracin-polymyxin B, 1 Application, topical, Q4H PRN camphor-menthoL, , topical, Q2H PRN dextrose, 15 g, oral, Q15 Min PRN OR dextrose, 250 mL, intravenous, Q15 Min PRN glucagon, 1 mg, intramuscular, Q30 Min PRN heparin flush (porcine), 2-5 mL, intra-catheter, PRN lubricant, 2 drop, each eye, Q4H PRN ramelteon, 8 mg, oral, Nightly PRN sodium chloride, 2 spray, each nostril, Q1H PRN sodium chloride 0.9%, 0.5-20 mL, intra-catheter, PRN sodium chloride 0.9%, 0.5-20 mL, intra-catheter, PRN sodium chloride 0.9%, 30 mL/hr, intravenous, Continuous PRN sodium chloride 0.9%, 0-250 mL, intravenous, PRN sodium chloride 0.9%, 30 mL/hr, Last Rate: 30 mL/hr (06/18/24 1833) sodium chloride 0.9%, 0-250 mL Vitals Most Recent Vitals: T 36.3 ??C (97.3 ??F), HR 76, BP 133/86, RR 16, SpO2 100 %. 24hr Min/Max: Temp Min: 36.3 ??C (97.3 ??F) Max: 36.6 ??C (97.8 ??F) Pulse Min: 62 Max: 93 BP Min: 102/85 Max: 160/93 Resp Min: 16 Max: 18 SpO2 Min: 97 % Max: 100 % Intake/Output Summary (Last 24 hours) at 06/21/2024 0723 Last data filed at 06/21/2024 0630 Gross per 24 hour Intake 2884 ml Output 3500 ml Net -616 ml ICE Score: No data found. Baseline ICE Score: CRS and ICANS Grading: No data found. Physical Exam Vital signs and recent nursing notes reviewed. GENERAL: no acute distress. THROAT: oral mucosa moist. No lesions appreciated CV: RRR, no murmurs. No LE edema. PULM: decreased breath sounds, mild ronchi. GI: BS+, non distended, non tender : deferred MSK: no joint swelling SKIN: no new rashes NEURO: Alert and oriented. Moves all extremities. No focal defects appreciated Lines, Drains, Airways Peripheral IV 06/16/24 20 G Right Antecubital (Active) Peripheral IV 06/16/24 20 G Left Antecubital (Active) Labs/Diagnostic Review CBC: Recent Labs Lab Units 06/21/24 0232 WBC K/cumm 14.0* HEMOGLOBIN g/dL 10.5* HEMATOCRIT % 32.2* MCV fL 99.4* MCH pg 32.4 MCHC g/dL 32.6 RDW CV % 15.0* RDWSD fL 55.0* MPV fL 10.2 NEUTROS ABS K/cumm 9.7* LYMPHS PCT % 19.3 CMP: Recent Labs Lab Units 06/21/24 0232 06/20/24 0736 06/20/24 0359 SODIUM mmol/L 141 -- 141 POTASSIUM PLASMA mmol/L 3.3 -- 3.3 CO2 mmol/L 34* -- 34* BUN SERUM mg/dL 20 -- 19 GLUCOSE mg/dL 240* -- 271* POC GLUCOSE MONITOR -- < > -- CREATININE mg/dL 0.59* -- 0.60* CALCIUM mg/dL 8.9 -- 8.4* CHLORIDE mmol/L 97 -- 102 ALBUMIN g/dL -- -- 3.1* AST Units/L -- -- 48 ALT Units/L -- -- 38 ALK PHOS Units/L -- -- 212* BILIRUBIN TOTAL mg/dL -- -- 0.2 TOTAL PROTEIN g/dL -- -- 7.2 ANIONGAP mmol/L 10 -- 5 < > = values in this interval not displayed. LDH: Recent Labs Lab Units 06/18/24 0356 LACTATE DEHYDROGENASE (LDH) Units/L 238 INR - Uric Acid:- Tacrolimus level:- Sirolimus level: - Cyclosporine level: - (Labs above are the most recent result obtained in the last 24 hours unless otherwise specified. For additional labs/trends, see Epic.) I have reviewed the laboratory results. Imaging Review No results found. I have independently reviewed and interpreted OSH CT chest 05/28, CXR 06/16. RUL cavitary lesion. Bilateral emphysematous changes. Assessment/Plan Bri Jones is a 58 y.o. 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 # Acute on chronic hypoxic respiratory failure # Right-sided lung infiltrate # Non-TB mycobacterial infection # Stenotrophomonas infection # COPD exacerbation Patient is admitted for worsening right upper lobe lung disease with cavitary lesion. He became acutely hypoxic after admission requiring transfer to the ICU for BiPAP. He improved quickly and was weaned to 2L NC by transfer to BMT floor. Pulmonology performed BAL on 06/16 notable for mycobacterium (non-TB by PCR) and stenotrophomonas. Likely multifactorial with primarily infectious process with contributions from emphysematous COPD and subsequent mucus plugging with evidence of bronchiectasis on imaging. Diagnostics: - 06/12 CMV negative - 06/15 RVP negative - 06/16 BAL AFB stain with moderate acid-fast bacilli - 06/16 BAL AFB culture NGTD - 06/16 BAL TB PCR negative - 06/16 BAL culture with Stenotrophomonas maltophila, susceptible to Bactrim, levofloxacin, and minocycline - 06/16 BAL Pneumocystis DFA negative - 06/16 Fungal serologies (Crypto, galactomannan, Blasto) negative - 06/16 Fungal cultures NGTD - 06/16 BCx NG - 06/19 Urine Histo antigen pending Plan: - Transplant ID c/s, appreciate recs - Prednisone 40 mg PO daily (06/16 - 06/20) for COPD exacerbation - Azithromycin 500 mg daily (06/16 - 06/18) for COPD exacerbation - Vancomycin (06/16 - 06/18), MRSA nares negative - Pip-tazo 4.5 g QID (06/16 - 06/20) for pneumonia - Minocycline 200 mg BID x 10 days (06/18 - 06/27) for Steno - Trelegy Ellipta daily - DuoNebs QID - Home montelukast 10 mg daily - Anti-tussives/expectorants PRN - Outpatient follow-up with Dr. Pinzon for non-TB mycobacterium # AML s/p allo-SCT [address] Del Valle. Diagnosed in 2008 s/p 7+3 and HiDAC consolidation x3 [facility]. Relapsed s/p allo- SCT from sister 08/27 match D0 = 11/09/09. Complicated by potential GVHD of eyes and lungs on MMF 1 g BID, tacrolimus 0.5 mg every other day. - MMF 1 g BID - Tacrolimus 0.5 every other day - OI ppx: acyclovir 400 mg TID, voriconazole 200 mg BID # Heart failure with preserved ejection fraction TTE 03/28/24 LVEF 50-55%, low-normal systolic function, small pericardial effusion. NT-proBNP 1012 on admission. - CTM # Type 2 diabetes mellitus A1c 6.7% - SSI with POCT BG - NPH with steroids # Peripheral neuropathy - Home gabapentin 300 mg QID # DVT DVT lower extremity in 2012, IJ 2018, with history of PE in 01/2013. - Home rivaroxaban 20 mg daily # Erosive esophagitis # Stress ulcer prophylaxis - Pantoprazole 40 mg BID # Hyperlipidemia - Atorvastatin 40 mg daily # Tobacco use disorder 0.5 ppd x 40 years, still smokes. - Nicotine replacement therapy Code status : Full Code Diet : Adult Diet Restricted; Mechanical Soft; Consistent Carbohydrate PT/OT Dispo Rec : PT Recommendation/Plan: Home with intermittent assist / Supplementary Attestation My total encounter time on this service date was 48 minutes which was spent performing a tkyf-en-hyth encounter and personally completing the provider-level activities documented in the note. This includes time spent prior to the visit and after the visit in direct care of the patient. This time does not include time spent in any separately reportable services. Sarbjit Davenport MD * Rafiq Cedeno MD - 06/20/2024 7:39 AM CDT [employer] PROGRESS NOTE Resident Physician Name: Bri Denton Jones : 1965 Today's Date: June 20, 2024 Age: 58 y.o. male Admit Date: 06/15/2024 Bed: [id number] LOS: 5 days SUBJECTIVE CHIEF COMPLAINT Right upper lobe cavitary lesion INTERVAL HISTORY - Endorses improvement in breathing, would like to defer discharge to Saturday as his roommate returns to town then. Wants to make sure he gets everything healed up before discharging. - Had loose watery stool overnight, C. Diff checked but negative - Per ID, minocycline x10d, Zosyn x5d, f/u in Dr. Pinzon's [facility] for myco - BGs elevated to 200-300s, WBCs 23 -> 17, Hgb 9.0, Plt 454 OBJECTIVE Scheduled Meds PRN Meds acyclovir, 400 mg, oral, Q8H atorvastatin, 40 mg, oral, Daily bzxtjdgedqn-uzjxhlkqh-vwmzcybo, 1 puff, inhalation, Daily gabapentin, 300 mg, oral, QID guaiFENesin ER, 600 mg, oral, BID heparin flush (porcine), 5 mL, intra-catheter, BID insulin lispro, 0-10 Units, subcutaneous, TID with meals insulin lispro, 0-5 Units, subcutaneous, Nightly insulin NPH, 8 Units, subcutaneous, Daily ipratropium-albuteroL, 3 mL, nebulization, QID (RT) minocycline, 200 mg, oral, BID - special montelukast, 10 mg, oral, Nightly mycophenolate mofetil, 1,000 mg, oral, BID nicotine, 1 patch, transdermal, Daily pantoprazole DR, 40 mg, oral, BID piperacillin-tazobactam, 4.5 g, intravenous, Q6H ROSA MARIA predniSONE, 40 mg, oral, Daily ramelteon, 8 mg, oral, Nightly rivaroxaban, 20 mg, oral, Daily with dinner sodium chloride 0.9%, 0.5-20 mL, intra-catheter, Q8H ROSA MARIA sodium chloride 0.9%, 0.5-20 mL, intra-catheter, Q8H ROSA MARIA sodium chloride 0.9%, 30 mL, swish & spit, QID tacrolimus, 0.5 mg, oral, Every other day voriCONAZOLE, 200 mg, oral, BID ??? acetaminophen, 650 mg ? ? aluminum & magnesium cqzythmib-ffhtlzffgfq-gmngzhupwgiysle-lidocaine, 15 mL ??? bacitracin-polymyxin B, 1 Application ??? camphor-menthoL, ??? dextrose, 15 g OR dextrose, 250 mL ??? glucagon, 1 mg ??? heparin flush (porcine), 2-5 mL ??? lubricant, 2 drop, 2 drop at 06/16/242125 ??? ramelteon, 8 mg, 8 mg at 06/19/247 ??? sodium chloride, 2 spray ??? sodium chloride 0.9%, 0.5-20 mL ??? sodium chloride 0.9%, 0.5-20 mL ??? sodium chloride 0.9%, 30 mL/hr, Last Rate: 30 mL/hr at 06/18/241832, 30 mL/hr at 06/18/241832 ??? sodium chloride 0.9%, 0-250 mL Infusions sodium chloride 0.9%, 30 mL/hr, Last Rate: 30 mL/hr (06/18/241832) sodium chloride 0.9%, 0-250 mL VITALS Most Recent Vitals: T 36.3 ??C (97.3 ??F), HR 88, BP 144/87, RR 20, SpO2 100 %. 24hr Min/Max: Temp Min: 36.3 ??C (97.3 ??F) Max: 36.6 ??C (97.9 ??F) Pulse Min: 68 Max: 95 BP Min: 141/87 Max: 154/87 Resp Min: 16 Max: 22 SpO2 Min: 92 % Max: 100 % Intake/Output Summary (Last 24 hours) at 06/20/2024 0739 Last data filed at 06/20/2024 0135 Gross per 24 hour Intake 840 ml Output 2450 ml Net -1610 ml Weight: Weight: 67 kg (147 lb 11.3 oz) PHYSICAL EXAM Constitutional: NAD, chronically ill-appearing Eyes: PERRL, EOMI, anicteric HENT: NCAT. Oropharynx normal, moist mucus membranes, poor/missing dentition Lungs: Rhonchi in bilateral lower lung leger, improved from prior Cardiovascular: RRR, normal S1 and S2 GI: Soft, non-tender, non-distended, bowel sounds positive Skin: No rashes, lesions or bruises Extremities: Normal without edema or cyanosis Neurologic: AOx4, no gross neurologic deficits Psychiatric: Appropriate affect and mood LINES/DRAINS/AIRWAYS Peripheral IV 06/16/24 20 G Right Antecubital (Active) Peripheral IV 06/16/24 20 G Left Antecubital (Active) Urethral Catheter Straight-tip (Active) LABS/DIAGNOSTICS CBC Recent Labs Lab Units 06/20/24 0302 WBC K/cumm 17.2* HEMOGLOBIN g/dL 9.0* HEMATOCRIT % 27.0* MCV fL 100.7* MCH pg 33.6* MCHC g/dL 33.3 RDW CV % 15.6* RDWSD fL 58.3* MPV fL 10.8 NEUTROS ABS K/cumm 15.0* LYMPHS PCT % 9.6 CMP Recent Labs Lab Units 06/20/24 0736 06/20/24 0359 SODIUM mmol/L -- 141 POTASSIUM PLASMA mmol/L -- 3.3 CO2 mmol/L -- 34* BUN SERUM mg/dL -- 19 GLUCOSE mg/dL -- 271* POC GLUCOSE MONITOR mg/dL 280* -- CREATININE mg/dL -- 0.60* CALCIUM mg/dL -- 8.4* CHLORIDE mmol/L -- 102 ALBUMIN g/dL -- 3.1* AST Units/L -- 48 ALT Units/L -- 38 ALK PHOS Units/L -- 212* BILIRUBIN TOTAL mg/dL -- 0.2 TOTAL PROTEIN g/dL -- 7.2 ANIONGAP mmol/L -- 5 LDH Recent Labs Lab Units 06/18/24 0356 LACTATE DEHYDROGENASE (LDH) Units/L 238 INR - Uric Acid - IMAGING No results found. MICROBIOLOGY Lab Results Component Value Date MICROBIOLOGY Preliminary Report: No growth to date. 06/16/2024 MICROBIOLOGY Preliminary Report: No growth to date. 06/16/2024 MICROBIOLOGY (.) 06/16/2024 Preliminary Report: No growth of acid-fast bacilli to date MICROBIOLOGY Preliminary Report: No growth of fungus to date 06/16/2024 MICROBIOLOGY 06/16/2024 Direct Stain Examination - Final: Negative for: Pneumocystis jirovecii MICROBIOLOGY (.) 06/16/2024 Final Report: Greater than or equal to 1,000 colonies/ml of Stenotrophomonas maltophilia For susceptibility results, refer to accession number [id number] on the bronch wash culture from06/16/24 Plus growth of clinically insignificant bacterial oscar. MICROBIOLOGY Final Report: Target not detected 06/16/2024 MICROBIOLOGY (.) 06/16/2024 Preliminary Report: No growth of acid-fast bacilli to date MICROBIOLOGY Preliminary Report: No growth of fungus to date 06/16/2024 MICROBIOLOGY (.) 06/16/2024 Preliminary Report - Final Review Pendin,000 to 100,000 colonies/mL of Stenotrophomonas maltophilia Plus growth of clinically insignificant bacterial oscar. MICROBIOLOGY Final Report: Target not detected 06/16/2024 MICROBIOLOGY Final Report: Target not detected 06/16/2024 MICROBIOLOGY Final Report: Target not detected 06/16/2024 I have reviewed the imaging and lab results above. ASSESSMENT & PLAN Bri Jones is a 58 y.o. 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 # Acute on chronic hypoxic respiratory failure # Right-sided lung infiltrate # Non-TB mycobacterial infection # Stenotrophomonas infection # COPD exacerbation Patient is admitted for worsening right upper lobe lung disease with cavitary lesion. He became acutely hypoxic after admission requiring transfer to the ICU for BiPAP. He improved quickly and was weaned to 2L NC by transfer to BMT floor. Pulmonology performed BAL on 06/16 notable for mycobacterium (non-TB by PCR) and stenotrophomonas. Likely multifactorial with primarily infectious process with contributions from emphysematous COPD and subsequent mucus plugging with evidence of bronchiectasis on imaging. Diagnostics: - 06/12 CMV negative - 06/15 RVP negative - 06/16 BAL AFB stain with moderate acid-fast bacilli - 06/16 BAL AFB culture NGTD - 06/16 BAL TB PCR negative - 06/16 BAL culture with Stenotrophomonas maltophila, susceptible to Bactrim, levofloxacin, and minocycline - 06/16 BAL Pneumocystis DFA negative - 06/16 Fungal serologies (Crypto, galactomannan, Blasto) negative - 06/16 Fungal cultures NGTD - 06/16 BCx NGTD - 06/19 Urine Histo antigen pending Plan: - Transplant ID c/s, appreciate recs - Prednisone 40 mg PO daily (06/16 - 06/20) for COPD exacerbation - Azithromycin 500 mg daily (06/16 - 06/18) for COPD exacerbation - Vancomycin (06/16 - 06/18), MRSA nares negative - Pip-tazo 4.5 g QID (06/16 - 06/20) for pneumonia - Minocycline 200 mg BID (06/18 - 06/27) for Steno - Trelegy Ellipta daily - DuoNebs QID - Home montelukast 10 mg daily - Anti-tussives/expectorants PRN - Outpatient follow-up with Dr. Pinzon for non-TB mycobacterium # AML s/p allo-SCT [address] Del Valle. Diagnosed in 2008 s/p 7+3 and HiDAC consolidation x3 followed by decitabine maintenance on [facility] [address]486 protocol. Relapsed s/p allo- SCT from sister 08/27 match D0 = 11/09/09. Complicated by potential GVHD of eyes and lungs on MMF 1 g BID, tacrolimus 0.5 mg every other day. - MMF 1 g BID - Tacrolimus 0.5 every other day - OI ppx: acyclovir 400 mg TID, voriconazole 200 mg BID # Heart failure with preserved ejection fraction TTE 03/28/24 LVEF 50-55%, low-normal systolic function, small pericardial effusion. NT-proBNP 1012 on admission. - CTM # Type 2 diabetes mellitus A1c 6.7% - SSI with POCT BG - NPH with steroids # Peripheral neuropathy - Home gabapentin 300 mg QID # DVT DVT lower extremity in 2012, IJ 2017, with history of PE in 01/2013. - Home rivaroxaban 20 mg daily # Erosive esophagitis # Stress ulcer prophylaxis - Pantoprazole 40 mg BID # Hyperlipidemia - Atorvastatin 40 mg daily # Tobacco use disorder 0.5 ppd x 40 years, still smokes. - Nicotine replacement therapy Code status : Full Code Diet : Adult Diet Restricted; Consistent Carbohydrate PT/OT Dispo Rec : PT Recommendation/Plan: Home with intermittent assist / Rafiq Cedeno MD Internal Medicine PGY-2 06/20/2024 7:39 AM Cosigned by Marcela Silva MD at 06/20/2024 11:03 AM CDT Associated attestation - Marcela Silva MD - 06/20/2024 11:03 AM CDT I have seen and examined the patient on 06/20/24. I agree with the findings and plan of care as documented in the resident/fellow's note. Marcela Silva MD * Rafiq Cedeno MD - 06/19/2024 7:38 AM CDT [employer] PROGRESS NOTE Resident Physician Name: Bri Jones : 1965 Today's Date: June 19, 2024 Age: 58 y.o. male Admit Date: 06/15/2024 Bed: [id number] LOS: 4 days SUBJECTIVE CHIEF COMPLAINT Right upper lobe cavitary lesion INTERVAL HISTORY - Endorses shortness of breath slightly worse than baseline and baseline chronic cough. Denies fevers/chills, nausea/vomiting, chest pain, abdominal pain. Feels like he is improving. Would like to know if he will need to isolate at home. - BGs elevated to 200-300s, WBCs 27.9 -> 23.7, Hgb 9.1, Plt 413 OBJECTIVE Scheduled Meds PRN Meds acyclovir, 400 mg, oral, Q8H atorvastatin, 40 mg, oral, Daily bfaozbanxgc-gchvdjzce-zxoerkvu, 1 puff, inhalation, Daily gabapentin, 300 mg, oral, QID guaiFENesin ER, 600 mg, oral, BID heparin flush (porcine), 5 mL, intra-catheter, BID insulin lispro, 0-10 Units, subcutaneous, TID with meals insulin lispro, 0-5 Units, subcutaneous, Nightly insulin NPH, 5 Units, subcutaneous, Daily ipratropium-albuteroL, 3 mL, nebulization, QID (RT) minocycline, 200 mg, oral, BID - special montelukast, 10 mg, oral, Nightly mycophenolate mofetil, 1,000 mg, oral, BID nicotine, 1 patch, transdermal, Daily pantoprazole DR, 40 mg, oral, BID piperacillin-tazobactam, 4.5 g, intravenous, Q6H ROSA MARIA predniSONE, 40 mg, oral, Daily ramelteon, 8 mg, oral, Nightly rivaroxaban, 20 mg, oral, Daily with dinner sodium chloride 0.9%, 0.5-20 mL, intra-catheter, Q8H ROSA MARIA sodium chloride 0.9%, 0.5-20 mL, intra-catheter, Q8H ROSA MARIA sodium chloride 0.9%, 30 mL, swish & spit, QID tacrolimus, 0.5 mg, oral, Every other day voriCONAZOLE, 200 mg, oral, BID ??? acetaminophen, 650 mg ? ? aluminum & magnesium euanyjvvn-gdrmvilmjkl-afdvcyggfvhrsxn-lidocaine, 15 mL ??? bacitracin-polymyxin B, 1 Application ??? camphor-menthoL, ??? dextrose, 15 g OR dextrose, 250 mL ??? glucagon, 1 mg ??? heparin flush (porcine), 2-5 mL ??? lubricant, 2 drop, 2 drop at 06/16/242125 ??? ramelteon, 8 mg, 8 mg at 06/19/24 0020 ??? sodium chloride, 2 spray ??? sodium chloride 0.9%, 0.5-20 mL ??? sodium chloride 0.9%, 0.5-20 mL ??? sodium chloride 0.9%, 30 mL/hr, Last Rate: 30 mL/hr at 06/18/241832, 30 mL/hr at 06/18/241832 ??? sodium chloride 0.9%, 0-250 mL Infusions sodium chloride 0.9%, 30 mL/hr, Last Rate: 30 mL/hr (06/18/241832) sodium chloride 0.9%, 0-250 mL VITALS Most Recent Vitals: T 36.7 ??C (98.1 ??F), HR 98, BP 143/89, RR 18, SpO2 98 %. 24hr Min/Max: Temp Min: 36.4 ??C (97.5 ??F) Max: 36.8 ??C (98.2 ??F) Pulse Min: 76 Max: 104 BP Min: 113/61 Max: 148/88 Resp Min: 15 Max: 26 SpO2 Min: 93 % Max: 100 % Intake/Output Summary (Last 24 hours) at 06/19/2024 0738 Last data filed at 06/19/2024 0610 Gross per 24 hour Intake 2161 ml Output 2650 ml Net -489 ml Weight: Weight: 67 kg (147 lb 11.3 oz) PHYSICAL EXAM Constitutional: NAD, chronically ill-appearing Eyes: PERRL, EOMI, anicteric HENT: NCAT. Oropharynx normal, moist mucus membranes, poor/missing dentition Lungs: Rhonchi in bilateral lower lung leger, improved from prior Cardiovascular: RRR, normal S1 and S2 GI: Soft, non-tender, non-distended, bowel sounds positive Skin: No rashes, lesions or bruises Extremities: Normal without edema or cyanosis Neurologic: AOx4, no gross neurologic deficits Psychiatric: Appropriate affect and mood LINES/DRAINS/AIRWAYS Peripheral IV 06/16/24 20 G Right Antecubital (Active) Peripheral IV 06/16/24 20 G Left Antecubital (Active) Urethral Catheter Straight-tip (Active) LABS/DIAGNOSTICS CBC Recent Labs Lab Units 06/19/24 0441 WBC K/cumm 23.7* HEMOGLOBIN g/dL 9.1* HEMATOCRIT % 27.8* MCV fL 101.8* MCH pg 33.3 MCHC g/dL 32.7 RDW CV % 15.5* RDWSD fL 58.0* MPV fL 10.2 NEUTROS ABS K/cumm 22.7* LYMPHS PCT % 3.5 CMP Recent Labs Lab Units 06/19/24 0441 06/18/24 0357 06/18/24 0356 SODIUM mmol/L 142 -- 141 POTASSIUM PLASMA mmol/L 3.9 -- 3.4 CO2 mmol/L 29 -- 28 BUN SERUM mg/dL 20 -- 22 GLUCOSE mg/dL 246* -- 70 POC GLUCOSE MONITOR -- < > -- CREATININE mg/dL 0.82 -- 0.91 CALCIUM mg/dL 8.8 -- 9.2 CHLORIDE mmol/L 104 -- 104 ALBUMIN g/dL -- -- 3.4* AST Units/L -- -- 46 ALT Units/L -- -- 29 ALK PHOS Units/L -- -- 273* BILIRUBIN TOTAL mg/dL -- -- 0.2 TOTAL PROTEIN g/dL -- -- 8.1 ANIONGAP mmol/L 9 -- 9 < > = values in this interval not displayed. LDH Recent Labs Lab Units 06/18/24 0356 LACTATE DEHYDROGENASE (LDH) Units/L 238 INR - Uric Acid 3.2 IMAGING No results found. MICROBIOLOGY Lab Results Component Value Date MICROBIOLOGY Preliminary Report: No growth to date. 06/16/2024 MICROBIOLOGY Preliminary Report: No growth to date. 06/16/2024 MICROBIOLOGY (.) 06/16/2024 Preliminary Report: No growth of acid-fast bacilli to date MICROBIOLOGY Preliminary Report: No growth of fungus to date 06/16/2024 MICROBIOLOGY 06/16/2024 Direct Stain Examination - Final: Negative for: Pneumocystis jirovecii MICROBIOLOGY (.) 06/16/2024 Final Report: Greater than or equal to 1,000 colonies/ml of Stenotrophomonas maltophilia For susceptibility results, refer to accession number [id number] on the bronch wash culture from7/30/24 Plus growth of clinically insignificant bacterial oscar. MICROBIOLOGY Final Report: Target not detected 06/16/2024 MICROBIOLOGY (.) 06/16/2024 Preliminary Report: No growth of acid-fast bacilli to date MICROBIOLOGY Preliminary Report: No growth of fungus to date 06/16/2024 MICROBIOLOGY (.) 06/16/2024 Preliminary Report: 10,000 to 100,000 colonies/mL of Stenotrophomonas maltophilia Susceptibility testing results to follow. Plus growth of clinically insignificant bacterial oscar. MICROBIOLOGY Final Report: Target not detected 06/16/2024 MICROBIOLOGY Final Report: Target not detected 06/16/2024 MICROBIOLOGY Final Report: Target not detected 06/16/2024 I have reviewed the imaging and lab results above. ASSESSMENT & PLAN Bri Jones is a 58 y.o. 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 # Acute on chronic hypoxic respiratory failure # Right-sided lung infiltrate # Non-TB mycobacterial infection # Stenotrophomonas infection # COPD exacerbation Patient is admitted for worsening right upper lobe lung disease with cavitary lesion. He became acutely hypoxic after admission requiring transfer to the ICU for BiPAP. He improved quickly and was weaned to 2L NC by transfer to BMT floor. Pulmonology performed BAL on 06/16 notable for mycobacterium (non-TB by PCR) and stenotrophomonas. Likely multifactorial with primarily infectious process with contributions from emphysematous COPD and subsequent mucus plugging with evidence of bronchiectasis on imaging. Diagnostics: - 06/12 CMV negative - 06/15 RVP negative - 06/16 BAL AFB stain with moderate acid-fast bacilli - 06/16 BAL AFB culture NGTD - 06/16 BAL TB PCR negative - 06/16 BAL culture with Stenotrophomonas maltophila, susceptibilities pending - 06/16 BAL Pneumocystis DFA negative - 06/16 Fungal serologies (Crypto, galactomannan, Blasto) negative - 06/16 Fungal cultures NGTD - 06/16 BCx NGTD - 06/19 Urine Histo antigen ordered Plan: - Transplant ID c/s, appreciate recs - Prednisone 40 mg PO daily (06/16 - 06/20) for COPD exacerbation - Azithromycin 500 mg daily (06/16 - 06/18) for COPD exacerbation - Vancomycin (06/16 - 06/18), MRSA nares negative - Pip-tazo 4.5 g QID (06/16 - ) for pneumonia - Minocycline 200 mg BID (06/18 - ) for Steno - Trelegy Ellipta daily - DuoNebs QID - Home montelukast 10 mg daily - Anti-tussives/expectorants PRN # AML s/p allo-SCT [address] Del Valle. Diagnosed in 2008 s/p 7+3 and HiDAC consolidation x3 followed by decitabine maintenance on [facility] [address] protocol. Relapsed s/p allo- SCT from sister 08/27 match D0 = 11/09/09. Complicated by potential GVHD of eyes and lungs on MMF 1 g BID, tacrolimus 0.5 mg every other day. - MMF 1 g BID - Tacrolimus 0.5 every other day - OI ppx: acyclovir 400 mg TID, voriconazole 200 mg BID # Heart failure with preserved ejection fraction TTE 03/28/24 LVEF 50-55%, low-normal systolic function, small pericardial effusion. NT-proBNP 1012 on admission. - CTM # Type 2 diabetes mellitus A1c 6.7% - SSI with POCT BG - NPH with steroids # Peripheral neuropathy - Home gabapentin 300 mg QID # DVT DVT lower extremity in 2012, IJ 2017, with history of PE in 01/2013. - Home rivaroxaban 20 mg daily # Erosive esophagitis # Stress ulcer prophylaxis - Pantoprazole 40 mg BID # Hyperlipidemia - Atorvastatin 40 mg daily # Tobacco use disorder 0.5 ppd x 40 years, still smokes. - Nicotine replacement therapy Code status : Full Code Diet : Adult Diet Restricted; Consistent Carbohydrate PT/OT Dispo Rec : PT Recommendation/Plan: Home with intermittent assist / Rafiq Cedeno MD Internal Medicine PGY-2 06/19/2024 7:38 AM Cosigned by Marcela Silva MD at 06/19/2024 2:24 PM CDT Associated attestation - Marcela Silva MD - 06/19/2024 2:24 PM CDT I have seen and examined the patient on 06/19/24. I agree with the findings and plan of care as documented in the resident/fellow's note. Marcela Silva MD * Rafiq Cedeno MD - 06/18/2024 3:50 PM CDT [employer] PROGRESS NOTE Resident Physician Name: Bri Jones : 1965 Today's Date: June 18, 2024 Age: 58 y.o. male Admit Date: 06/15/2024 Bed: [id number] LOS: 3 days SUBJECTIVE CHIEF COMPLAINT Right upper lobe cavitary lesion SUMMARY OF ADMISSION Bri Jones is a 58 y.o. 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 He was previously admitted to outside hospital in 03/2024 for pneumonia and received cefepime x7d, azithromycin x3d and found to have MSSA bacteremia s/p 6 weeks of IV cefazolin. He followed up with his clerk secretary with worsening RUL pulmonary process on CT chest. As a result, he was admitted to BMT ICU. He underwent BAL on 06/16 but developed acute shortness of breath for which an ACT was calledand he was transferred to the ICU for BiPAP. He was started on empiric prednisone 40 mg daily x5d (06/16 - 06/20) and azithromycin 500 mg PO x3d (06/16 - 06/18) for COPD exacerbation and empiric vancomycin(06/16 - 06/18, MRSA negative), pip-tazo (06/16 - ), and azithromycin (06/16 - 06/18) and was titrated quickly to 2L NC. BAL was notable for positive AFB (non-TB by PCR) and stenotrophomonas. On arrival to the floor, vitals T 36.6 ??C (97.9 ??F), BP 139/80, HR 94, RR 23, SpO2 100 % on 2 L/min. Patient reports difficulty sleeping and chronic cough but otherwise denies fevers/chills, shortness of breath, chest pain, abdominal pain, nausea/vomiting, constipation/diarrhea. INTERVAL HISTORY - Arrived on BMT floor with no acute concerns OBJECTIVE Scheduled Meds PRN Meds acyclovir, 400 mg, oral, Q8H atorvastatin, 40 mg, oral, Daily uecywhtowll-yakazgipw-ijulwosu, 1 puff, inhalation, Daily gabapentin, 300 mg, oral, QID guaiFENesin ER, 600 mg, oral, BID heparin flush (porcine), 5 mL, intra-catheter, BID insulin lispro, 0-10 Units, subcutaneous, TID with meals insulin lispro, 0-5 Units, subcutaneous, Nightly insulin NPH, 5 Units, subcutaneous, Daily ipratropium-albuteroL, 3 mL, nebulization, QID (RT) minocycline, 200 mg, oral, BID - special montelukast, 10 mg, oral, Nightly mycophenolate mofetil, 1,000 mg, oral, BID nicotine, 1 patch, transdermal, Daily pantoprazole DR, 40 mg, oral, BID piperacillin-tazobactam, 4.5 g, intravenous, Q6H ROSA MARIA predniSONE, 40 mg, oral, Daily rivaroxaban, 20 mg, oral, Daily with dinner sodium chloride 0.9%, 0.5-20 mL, intra-catheter, Q8H ROSA MARIA sodium chloride 0.9%, 0.5-20 mL, intra-catheter, Q8H ROSA MARIA sodium chloride 0.9%, 30 mL, swish & spit, QID tacrolimus, 0.5 mg, oral, Every other day voriCONAZOLE, 200 mg, oral, BID ??? acetaminophen, 650 mg ? ? aluminum & magnesium mtkmaiwpd-tktgqolyprp-bbircyjguhrgcuj-lidocaine, 15 mL ??? bacitracin-polymyxin B, 1 Application ??? camphor-menthoL, ??? dextrose, 15 g OR dextrose, 250 mL ??? glucagon, 1 mg ??? heparin flush (porcine), 2-5 mL ??? lubricant, 2 drop, 2 drop at 06/16/242125 ??? ramelteon, 8 mg, 8 mg at 06/15/242240 ??? sodium chloride, 2 spray ??? sodium chloride 0.9%, 0.5-20 mL ??? sodium chloride 0.9%, 0.5-20 mL ??? sodium chloride 0.9%, 30 mL/hr, Last Rate: 30 mL/hr at 06/16/24625, 30 mL/hr at 06/16/24625 ??? sodium chloride 0.9%, 0-250 mL Infusions sodium chloride 0.9%, 30 mL/hr, Last Rate: 30 mL/hr (06/16/24625) sodium chloride 0.9%, 0-250 mL VITALS Most Recent Vitals: T 36.6 ??C (97.9 ??F), HR 94, BP 139/80, RR 23, SpO2 100 %. 24hr Min/Max: Temp Min: 36.4 ??C (97.5 ??F) Max: 36.8 ??C (98.2 ??F) Pulse Min: 76 Max: 104 BP Min: 98/44 Max: 144/81 Resp Min: 15 Max: 26 SpO2 Min: 93 % Max: 100 % Intake/Output Summary (Last 24 hours) at 06/18/2024 1550 Last data filed at 06/18/2024 1345 Gross per 24 hour Intake 1860 ml Output 2080 ml Net -220 ml Weight: Weight: 59 kg (130 lb 1.1 oz) PHYSICAL EXAM Constitutional: NAD, chronically ill-appearing Eyes: PERRL, EOMI, anicteric HENT: NCAT. Oropharynx normal, moist mucus membranes, poor/missing dentition Lungs: Rhonchi in all lung leger Cardiovascular: RRR, normal S1 and S2 GI: Soft, non-tender, non-distended, bowel sounds positive Skin: No rashes, lesions or bruises Extremities: Normal without edema or cyanosis Neurologic: AOx4, no gross neurologic deficits Psychiatric: Appropriate affect and mood LINES/DRAINS/AIRWAYS Peripheral IV 06/16/24 20 G Right Antecubital (Active) Peripheral IV 06/16/24 20 G Left Antecubital (Active) Urethral Catheter Straight-tip (Active) LABS/DIAGNOSTICS CBC Recent Labs Lab Units 06/18/24 0356 WBC K/cumm 27.9* HEMOGLOBIN g/dL 9.3* HEMATOCRIT % 28.6* MCV fL 102.5* MCH pg 33.3 MCHC g/dL 32.5 RDW CV % 15.5* RDWSD fL 58.1* MPV fL 10.1 NEUTROS ABS K/cumm 25.2* LYMPHS PCT % 4.4 CMP Recent Labs Lab Units 06/18/24 1121 06/18/24 0357 06/18/24 0356 SODIUM mmol/L -- -- 141 POTASSIUM PLASMA mmol/L -- -- 3.4 CO2 mmol/L -- -- 28 BUN SERUM mg/dL -- -- 22 GLUCOSE mg/dL -- -- 70 POC GLUCOSE MONITOR mg/dL 216* < > -- CREATININE mg/dL -- -- 0.91 CALCIUM mg/dL -- -- 9.2 CHLORIDE mmol/L -- -- 104 ALBUMIN g/dL -- -- 3.4* AST Units/L -- -- 46 ALT Units/L -- -- 29 ALK PHOS Units/L -- -- 273* BILIRUBIN TOTAL mg/dL -- -- 0.2 TOTAL PROTEIN g/dL -- -- 8.1 ANIONGAP mmol/L -- -- 9 < > = values in this interval not displayed. LDH Recent Labs Lab Units 06/18/24 0356 LACTATE DEHYDROGENASE (LDH) Units/L 238 INR - Uric Acid 3.2 IMAGING No results found. MICROBIOLOGY Lab Results Component Value Date MICROBIOLOGY Preliminary Report: No growth to date. 06/16/2024 MICROBIOLOGY Preliminary Report: No growth to date. 06/16/2024 MICROBIOLOGY (.) 06/16/2024 Preliminary Report: No growth of acid-fast bacilli to date MICROBIOLOGY Preliminary Report: No growth of fungus to date 06/16/2024 MICROBIOLOGY 06/16/2024 Direct Stain Examination - Final: Negative for: Pneumocystis jirovecii MICROBIOLOGY (.) 06/16/2024 Final Report: Greater than or equal to 1,000 colonies/ml of Stenotrophomonas maltophilia For susceptibility results, refer to accession number [id number] on the bronch wash culture from7/30/24 Plus growth of clinically insignificant bacterial oscar. MICROBIOLOGY Final Report: Target not detected 06/16/2024 MICROBIOLOGY (.) 06/16/2024 Preliminary Report: No growth of acid-fast bacilli to date MICROBIOLOGY Preliminary Report: No growth of fungus to date 06/16/2024 MICROBIOLOGY (.) 06/16/2024 Preliminary Report: 10,000 to 100,000 colonies/mL of Stenotrophomonas maltophilia Susceptibility testing results to follow. Plus growth of clinically insignificant bacterial oscar. MICROBIOLOGY Final Report: Target not detected 06/16/2024 MICROBIOLOGY Final Report: Target not detected 06/16/2024 MICROBIOLOGY Final Report: Target not detected 06/16/2024 I have reviewed the imaging and lab results above. ASSESSMENT & PLAN Bri oJnes is a 58 y.o. 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 # Acute on chronic hypoxic respiratory failure # Right-sided lung infiltrate # Non-TB mycobacterial infection # Stenotrophomonas infection # COPD exacerbation Patient is admitted for worsening right upper lobe lung disease with cavitary lesion. He became acutely hypoxic after admission requiring transfer to the ICU for BiPAP. He improved quickly and was weaned to 2L NC by transfer to BMT floor. Pulmonology performed BAL on 06/16 notable for mycobacterium (non-TB by PCR) and stenotrophomonas. Likely multifactorial with primarily infectious process with contributions from emphysematous COPD and subsequent mucus plugging with evidence of bronchiectasis on imaging. Diagnostics: - 06/12 CMV negative - 06/15 RVP negative - 06/16 BAL AFB stain with moderate acid-fast bacilli - 06/16 BAL AFB culture NGTD - 06/16 BAL TB PCR negative - 06/16 BAL culture with Stenotrophomonas maltophila, susceptibilities pending - 06/16 BAL Pneumocystis DFA negative - 06/16 Fungal serologies (Crypto, galactomannan, Blasto) negative - 06/16 Fungal cultures NGTD - 06/16 BCx NGTD Plan: - Infectious disease consult in AM - Prednisone 40 mg PO daily (06/16 - 8/3) for COPD exacerbation - Azithromycin 500 mg daily (06/16 - 06/18) for COPD exacerbation - Vancomycin (06/16 - 06/18), MRSA nares negative - Pip-tazo 4.5 g QID (06/16 - ) for pneumonia - Minocycline 200 mg BID (06/18 - ) for Steno - Trelegy Ellipta daily - DuoNebs QID - Home montelukast 10 mg daily - Anti-tussives/expectorants PRN # AML s/p allo-SCT [address] Del Valle. Diagnosed in 2008 s/p 7+3 and HiDAC consolidation x3 followed by decitabine maintenance on [facility] [address] protocol. Relapsed s/p allo- SCT from sister 08/27 match D0 = 11/09/09. Complicated by potential GVHD of eyes and lungs on MMF 1 g BID, tacrolimus 0.5 mg every other day. - MMF 1 g BID - Tacrolimus 0.5 every other day - OI ppx: acyclovir 400 mg TID, voriconazole 200 mg BID # Heart failure with preserved ejection fraction TTE 03/28/24 LVEF 50-55%, low-normal systolic function, small pericardial effusion. NT-proBNP 1012 on admission. - CTM # Type 2 diabetes mellitus A1c 6.7% - SSI with POCT BG - NPH with steroids # Peripheral neuropathy - Home gabapentin 300 mg QID # DVT DVT lower extremity in 2012, IJ 2017, with history of PE in 01/2013. - Home rivaroxaban 20 mg daily # Erosive esophagitis # Stress ulcer prophylaxis - Pantoprazole 40 mg BID # Hyperlipidemia - Atorvastatin 40 mg daily # Tobacco use disorder 0.5 ppd x 40 years, still smokes. - Nicotine replacement therapy Code status : Full Code Diet : Adult Diet Restricted; Consistent Carbohydrate DVT prophylaxis : Therapeutic Xarelto PT/OT Dispo Rec : PT Recommendation/Plan: Home with intermittent assist / Rafiq Cedeno MD Internal Medicine PGY-2 06/18/2024 3:50 PM Cosigned by Boom Cody MD PhD at 06/18/2024 6:26 PM CDT Associated attestation - Day, Boom Loja MD PhD - 06/18/2024 6:26 PM CDT I have seen and examined the patient on 06/18/24 in conjunction with the resident/fellow. I agree with the findings and plan of care as documented in the resident/fellow's note. Patient with RUL cavitary lesion, with BAL+ for non-TB AFB and Steno. Currently on azithro, Zosyn, michael. Consult ID recs in AM for antibiotic plan. 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 Interval History: Continued off BiPAP. BAL + non-TB acid fast bacilli Scheduled Medications: acyclovir, 400 mg, oral, Q8H atorvastatin, 40 mg, oral, Daily jvhoetidlny-qeqnabrxc-fkyitvih, 1 puff, inhalation, Daily gabapentin, 300 mg, oral, QID guaiFENesin ER, 600 mg, oral, BID heparin flush (porcine), 5 mL, intra-catheter, BID insulin lispro, 0-10 Units, subcutaneous, TID with meals insulin lispro, 0-5 Units, subcutaneous, Nightly insulin NPH, 5 Units, subcutaneous, Daily ipratropium-albuteroL, 3 mL, nebulization, QID (RT) minocycline, 200 mg, oral, BID - special montelukast, 10 mg, oral, Nightly mycophenolate mofetil, 1,000 mg, oral, BID nicotine, 1 patch, transdermal, Daily pantoprazole DR, 40 mg, oral, BID piperacillin-tazobactam, 4.5 g, intravenous, Q6H ROSA MARIA predniSONE, 40 mg, oral, Daily rivaroxaban, 20 mg, oral, Daily with dinner sodium chloride 0.9%, 0.5-20 mL, intra-catheter, Q8H ROSA MARIA sodium chloride 0.9%, 0.5-20 mL, intra-catheter, Q8H ROSA MARIA sodium chloride 0.9%, 30 mL, swish & spit, QID tacrolimus, 0.5 mg, oral, Every other day voriCONAZOLE, 200 mg, oral, BID Continuous Medications: sodium chloride 0.9%, 30 mL/hr, Last Rate: 30 mL/hr (06/16/24 0626) sodium chloride 0.9%, 0-250 mL PRN Medications: acetaminophen aluminum & magnesium aimdarsnh-tyymhhcjppo-flybdlxejgldmjl-lidocaine bacitracin-polymyxin B camphor-menthoL dextrose OR dextrose glucagon heparin flush (porcine) lubricant ramelteon sodium chloride sodium chloride 0.9% sodium chloride 0.9% sodium chloride 0.9% sodium chloride 0.9% Objective Vitals: Most Recent: BP 136/81 Pulse 103 Temp 36.5 ??C (97.7 ??F) Resp 20 Ht 180.3 cm (5' 11 ) Wt 59 kg (130 lb 1.1 oz) SpO2 100% BMI 18.14 kg/m?? 24hr Min/Max: Temp Min: 35.7 ??C (96.3 ??F) Max: 36.8 ??C (98.2 ??F) Pulse Min: 73 Max: 103 BP Min: 98/44 Max: 136/81 Resp Min: 15 Max: 26 SpO2 Min: 93 % Max: 100 % Vent settings: / /50 %/ Mode of Oxygenation: Oxygen Therapy SpO2: 100 % PaO2 from Lab: (!) 159 P/F Ratio: 318 Pulse Oximetry Type: Continuous pCO2 (TCOM, mmHg): 50 mmHg Patient Activity: At rest O2 Therapy: Supplemental oxygen O2 Del Method: Nasal cannula Skin Intact: Yes FiO2 (%): 50 % O2 Flow Rate (L/min): 2 L/min SpO2 Alarm Limit High: 100 SpO2 Alarm Limit Low: 90 Oximetry Probe Site Changed: Yes (06/16/24 0940) I/O: Date 06/17/24699 - 06/18/2465806/18/24699 - 06/19/2459 Shift 1570-9562 0252-0072 24 Hour Total 2758-1636 2967-3985 24 Hour Total INTAKE P.O. 985 367 8475 420 420 IV Piggyback 320 320 Shift Total(mL/kg) 1160(19.7) 420(7.1) 1580(26.8) 420(7.1) 420(7.1) OUTPUT Urine(mL/kg/hr) 1085(1.5) 770(1.1) 1855(1.3) 825 825 Shift Total(mL/kg) 1085(18.4) 770(13.1) 1855(31.4) 825(14) 825(14) NET 75 -350 -275 -405 -405 Weight (kg) 59 59 59 59 59 59 Physical Exam: General: resting comfortably with no visible signs of distress HEENT: Moist mucus membranes, no evidence of lymphadenopathy Neuro: A&Ox3, follows commands, PERRL Cardiovascular: Audible S1, S2, RRR, no murmurs, gallops, rubs, +2 pulses, trace edema Lungs: lung sounds course and diminished bilaterally Abdomen: soft, nondistended, nontender, bowel sounds positive Skin: warm, dry, intact Musculoskeletal: moves all extremities Lab/Radiology/Diagnostic Review: Lab results in the last 24 hours: Recent Results (from the past 24 hour(s)) POCT glucose Collection Time: 06/17/24 4:00 PM Result Value Ref Range Glucose, POC 294 (H) 70 - 199 mg/dL Glucose comment 1 Glu2: BECKI/ Notified POCT glucose Collection Time: 06/17/24 8:49 PM Result Value Ref Range Glucose, POC 456 (Critical) 70 - 199 mg/dL Glucose comment 1 Glu2: RN/ Notified POCT glucose Collection Time: 06/17/24 8:51 PM Result Value Ref Range Glucose, POC 519 (Critical) 70 - 199 mg/dL Glucose comment 1 Glu2: Basic metabolic panel Collection Time: 06/17/24 9:20 PM Result Value Ref Range Sodium 139 135 - 145 mmol/L Potassium, pl 3.4 3.3 - 4.9 mmol/L Chloride 102 97 - 110 mmol/L CO2 26 22 - 32 mmol/L Anion gap 11 2 - 15 mmol/L BUN 20 6 - 25 mg/dL Creatinine 0.91 0.80 - 1.30 mg/dL Glucose 462 (Critical) 70 - 199 mg/dL Calcium 8.7 8.5 - 10.3 mg/dL eGFR Collection Time: 06/17/24 9:20 PM Result Value Ref Range eGFR >90 >=60 mL/min/1.73 m2 Critical Result Callback Chemistry Collection Time: 06/17/24 9:20 PM Result Value Ref Range Date Notified [id number] Time Notified 2207 TestName Glucose Called/Read Back Yuriy Brown Credentials RN Called By aris POCT glucose Collection Time: 06/17/24 10:06 PM Result Value Ref Range Glucose, POC 475 (Critical) 70 - 199 mg/dL Glucose comment 1 Glu2: RN/ Notified Vancomycin level trough Draw trough 30 minutes prior to 4th dose. Collection Time: 06/17/24 11:15 PM Result Value Ref Range Vancomycin trough 21.2 (H) 10.0 - 20.0 mcg/mL POCT glucose Collection Time: 06/17/24 11:15 PM Result Value Ref Range Glucose, POC 335 (H) 70 - 199 mg/dL Glucose comment 1 Glu2: RN/ Notified POCT glucose Collection Time: 06/18/24 12:04 AM Result Value Ref Range Glucose, POC 337 (H) 70 - 199 mg/dL Magnesium Collection Time: 06/18/24 3:56 AM Result Value Ref Range Magnesium 2.1 1.4 - 2.5 mg/dL Phosphorus Collection Time: 06/18/24 3:56 AM Result Value Ref Range Phosphorus, pl 2.1 (L) 2.3 - 4.5 mg/dL Type and screen Collection Time: 06/18/24 3:56 AM Result Value Ref Range Ursula, indirect Negative ABO Rh A Positive Comprehensive metabolic panel Collection Time: 06/18/24 3:56 AM Result Value Ref Range Sodium 141 135 - 145 mmol/L Potassium, pl 3.4 3.3 - 4.9 mmol/L Chloride 104 97 - 110 mmol/L CO2 28 22 - 32 mmol/L Anion gap 9 2 - 15 mmol/L BUN 22 6 - 25 mg/dL Creatinine 0.91 0.80 - 1.30 mg/dL Glucose 70 70 - 199 mg/dL Calcium 9.2 8.5 - 10.3 mg/dL Bilirubin, total 0.2 0.1 - 1.2 mg/dL Protein, pl 8.1 6.5 - 8.5 g/dL Albumin 3.4 (L) 3.5 - 5.0 g/dL Alk phos 273 (H) 40 - 130 Units/L ALT 29 7 - 55 Units/L AST 46 10 - 50 Units/L Uric acid Collection Time: 06/18/24 3:56 AM Result Value Ref Range Uric acid 3.2 3.0 - 8.0 mg/dL Lactate dehydrogenase (LD) Collection Time: 06/18/24 3:56 AM Result Value Ref Range Lactate dehydrogenase (LDH) 238 100 - 250 Units/L CBC without differential Collection Time: 06/18/24 3:56 AM Result Value Ref Range WBC 27.9 (H) 3.8 - 9.9 K/cumm Hgb 9.3 (L) 13.0 - 17.5 g/dL Hct 28.6 (L) 38.9 - 50.3 % Plt 377 150 - 400 K/cumm MPV 10.1 9.1 - 12.3 fL RBC 2.79 (L) 4.30 - 5.80 M/cumm MCV 102.5 (H) 81.3 - 96.4 fL MCH 33.3 27.1 - 33.3 pg MCHC 32.5 32.3 - 35.7 g/dL RDW CV 15.5 (H) 11.1 - 14.9 % RDW SD 58.1 (H) 35.7 - 48.1 fL NRBC abs 0.04 (H) 0.00 - 0.01 K/cumm Manual Differential Collection Time: 06/18/24 3:56 AM Result Value Ref Range Differential Manual Cells Counted 114 Neutrophil abs 25.2 (H) 1.5 - 6.5 K/cumm Imm gran abs 0.0 0.0 - 0.1 K/cumm Lymphocyte abs 1.2 0.8 - 3.3 K/cumm Monocyte abs 1.5 (H) 0.2 - 0.8 K/cumm Neutrophil pct 90.3 % Lymphocyte pct 4.4 % Monocyte pct 5.3 % RBC morphology Present (A) Anisocytosis Marked (A) Macrocytes > 15/HPF (A) Platelet estimate Adequate eGFR Collection Time: 06/18/24 3:56 AM Result Value Ref Range eGFR >90 >=60 mL/min/1.73 m2 POCT glucose Collection Time: 06/18/24 3:57 AM Result Value Ref Range Glucose, POC 76 70 - 199 mg/dL POCT glucose Collection Time: 06/18/24 5:09 AM Result Value Ref Range Glucose, POC 125 70 - 199 mg/dL POCT glucose Collection Time: 06/18/24 7:10 AM Result Value Ref Range Glucose, POC 129 70 - 199 mg/dL POCT glucose Collection Time: 06/18/24 11:21 AM Result Value Ref Range Glucose, POC 216 (H) 70 - 199 mg/dL Glucose comment 1 Glu2: RN/MD Notified Radiology Review: XR Chest 1 View Result Date: 06/16/2024 [...] it. Electronically signed by: Pearl Carvalho M.D. No valid procedures specified. LDA: Urethral Catheter Straight-tip (Active) Placement Date/Time: 06/17/24 1215 Inserted by: KAILEE Catheter Type: Straight-tip Tube Size (Fr.): 16 Fr Catheter Balloon Size: 10 mL Urine Returned: Yes Number of days: 0 Assessment/Plan Acute on chronic hypoxic respiratory failure (HCC) Assessment & Plan 2/2 mucus plugging, worsening infection vs COPD exacerbation -Transferred to ICU on BiPap for resp distress -Off BiPAP 06/17 am -Currently on NC 2L, titrate to keep sats > 92% -Continue prednisone 40mg PO for 5 days and azithromycin 500mg PO for possible COPD exacerbation -Continue bronchodilators COPD with Pulmonary emphysema (HCC) Assessment & Plan H/O COPD with emphysema, continues to smoke. Treat for exacerbation -Continue trelegy ellipta -Duo nebs QID -Continue prednisone 40mg for 5 days and azithromycin 500mg AML s/p Allo SCT in 2008 Assessment & Plan Follows Dr. Bauman, last seen in clinic on 06/09/2023 -AML diagnosed in 2008 s/p 7+3 and HiDAC consolidation x3 followed by Decitabine maintenance on [facility] [address] protocol. -Followed by Relapsed disease, status post alloSCT sister 08/27 match D): 11/09/2009. 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 voriconazole 200 b.i.d -BMT following * Right sided lung infiltrate Assessment & Plan Likely secondary to non-TB mycobacterial infection and Steno -Infectious work up with 06/16 BAL with + AFB, negative TB PCR, Steno+, RVP neg -F/u sensitivities -Receiving Vancomycin (06/16-06/18, MRSA neg), Zosyn (06/16- ), and Azithromycin (06/16- ) Tobacco abuse Assessment & Plan Encourage cessation Peripheral neuropathy Assessment & Plan Continue gabapentin CHF (congestive heart failure) ([facility]) ([facility]) Assessment & Plan TTE: 03/28/24: EF: 50-55%, low normal Systolic function, small pericardial effusion, BNP 1012 -Monitor volume status, appears euvolemic on exam DVT (deep venous thrombosis) ([facility]) ([facility]) Assessment & Plan DVT lower ext 2012, DVT IJ 2017, PE 02/02/2013. -Continue Xarelto 20 mg a day Type 2 diabetes mellitus ([facility]) Assessment & Plan -A1c checked 6.7 -NPO, start accuchecks and SSI Q4H Pdmjh-lvadnx-rxux disease ([facility]) Assessment & Plan -Continue cellcept 100mg BID and tacrolimus 0.5 mg every other day. FEN: Monitor and replete electrolytes, Access: PIV Ppx: [email or web address] Code status: Full Code Lluvia Arguello NP * Ish De Dios, PT - 06/17/2024 1:29 PM CDT Physical Therapy Evaluation Note NOTE: This is a summary note of the feliz components of the evaluation session. For full details, review chart for all flowsheets documented on by this physical therapy clinician on this date. Vital signs are documented in the vital signs flowsheet. For questions, please review the treatment team and contact the PT or [employer]S ASSEMBLER currently assigned to this patient. If a physical therapy clinician is not assigned to this patient, please call [phone]. 06/17/24 6928 General Chart Reviewed Yes Session Type Evaluation PT Received On 06/17/24 Safe Environment Arm band checked;Patient found in supine;Gait belt utilized for all out of bed mobility Subjective Agreeable to Therapy Family/Caregiver Present No Physical Therapy-Patient Goal Return home, walk without an AD Precautions Precautions Fall risk Home Living Type of Home Mobile Home Home Layout One level Home Access Stairs to enter with rails Entrance Stairs-Rails Both Entrance Stairs-Number of Steps 5 Home Mobility Equipment-Available 4-Wheeled walker Home Mobility Equipment-Currently Using 4-Wheeled walker (only using rollator for long, long walks ) Prior Function Level of [place] Independent with ADLs;Independent functional transfers;Independent with ambulation;Independent with homemaking with ambulation Lives With Friend(s) Receives Help From Family (roommate can provide vp corporate partnerships assist) Fall within the last 6 months Yes Fall within the last 6 months comment 1 fall when my feet just fell out. Activity Tolerance Activity Tolerance Comments [place]: somewhat hard Pain Assessment Pain Assessment No/denies pain Cognition Arousal/Alertness Alert;Appropriate responses to stimuli Orientation Oriented X4 (person, place, time, situation) Following Commands Follows all commands and directions without difficulty Safety Judgment Good awareness of safety precautions Sensation Light Touch Partial deficits in the RLE;Partial deficits in the LLE (no sensation in toes bilaterally.) Sensation Comments Skin integrity intact with no edema noted for BLEs distal to knees. Static Sitting Balance Static Sitting-Balance Support Feet supported;No upper extremity supported Static Sitting-Sitting Surface Bed Static Sitting-Level of Assistance Independent Dynamic Sitting Balance Dynamic Sitting-Balance Support Feet supported;No upper extremity supported Dynamic Sitting-Balance Lateral lean;Forward lean Dynamic Sitting-Sitting Surface Bed Dynamic Sitting-Level of Assistance Independent Static Standing Balance Static Standing-Balance Support Bilateral upper extremity supported (holding the back of a w/c) Static Standing-Standing Surface Floor Static Standing-Level of Assistance Close supervision Static Standing-Comment/# of Minutes sup for safety ICU Mobility Scale ICU Mobility Scale 8 FSS-ICU Functional Status Score (ICU scale) Rolling 5 Supine to Sit 5 Sitting 7 Sit to Stand 5 Ambulation or Wheelchair Mobility? Ambulation Ambulation 4 Score (Out of 35) 26 Bed Mobility 1 Bed Mobility From 1 Supine Bed Mobility Type 1 To and from Bed Mobility to 1 Short sit;Edge of bed Level of Assistance 1 Standby Assist Bed Mobility Comments 1 sup for safety and line management Transfer 1 Transfer From 1 Sit Transfer Type 1 To and from Transfer to 1 Stand Technique 1 Sit to stand;Stand to sit Transfer Device 1 Other (comments) (holding the back of a w/c) Transfer Level of Assistance 1 Standby Assist Trials/Comments 1 sup for safety Ambulation 1 Distance (ft) 1 210 Surface 1 Level tile Device 1 Other (comments) (pushing a w/c) Assistance 1 Minimum Assist Gait: Requires assist with 1 Maintaining balance Gait: Requires verbal cues to 1 Improve upright posture;Increase step length;Pace activity Gait Deviations 1 Harini - decreased;Posture - flexed;Step length - decreased Ambulation Comments 1 10 MWT: 15 seconds. 2 standing rests 2/2 SOB, pt ambulated on 3 lpm with SpO2>90%. 2 instances of lateral LOB during turns requiring min A to stabilize. Stairs Stairs No RLE Assessment RLE Assessment WFL LLE Assessment [...] sitting on the side of the bed? 3 How much difficulty does the patient have: Moving to and from a bed to a chair including wheelchair? 3 How much help does the patient currently need: Walk in hospital room? 3 How much help from another person does the patient currently need: Climbing 3-5 steps with a railing? 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 Plan Plan Plan of care initiated;If this is the last note, consider this the discharge summary Recommendation/Plan PT Recommendation/Plan Home with intermittent assist PT Frequency during current admission 2-3x/wk Treatment/Interventions during current admission Balance Training;Bed mobility;Functional transfer training;Gait training;Endurance training;Stair training;Therapeutic activity;Therapeutic exercise PT Equipment Recommended None PT - Next Appointment 06/19/24 PT Evaluation Complete Yes Time Calculation Start Time 1329 Stop Time 1400 Time Calculation (min) 31 min Multi-Disciplinary Problems (from Physical Therapy) Active Problems Problem: Mobility Start Date: 06/17/24 Goal Start Date Expected End Date End Date LTG - Patient will ambulate community distance 06/17/24 07/17/24 -- Goal Details: With modified independence with a rollator. Goal Start Date Expected End Date End Date STG - Patient will ambulate 06/17/24 07/03/24 -- Goal Details: 150 feet with supervision without an assistive device with vitals stable. Goal Start Date Expected End Date End Date STG - Patient will ascend and descend five stairs 06/17/24 07/03/24 -- Goal Details: With supervision with a handrail. Problem: Transfers Start Date: 06/17/24 Goal Start Date Expected End Date End Date STG - Patient to transfer to and from sit to supine 06/17/24 07/03/24 -- Goal Details: With modified independence. Goal Start Date Expected End Date End Date STG - Patient will transfer sit to and from stand 06/17/24 07/03/24 -- Goal Details: With modified independence. * Amada Ruth, BRIAN - 06/17/2024 1:11 PM CDT Speech Language/Pathology 06/17/24 1310 General MEDICAL CHARGE ENTRY SPECIALIST Missed Visit Reason Other (comment) (Pt passed nursing dysphagia screen and is on a regular diet. CONFERENCE DIRECTOR said MEDICAL CHARGE ENTRY SPECIALIST can d/c orders. 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 Interval History: Wore BiPAP overnight. Trial off this am. . Scheduled Medications: acyclovir, 400 mg, oral, Q8H atorvastatin, 40 mg, oral, Daily azithromycin, 500 mg, oral, Daily sdqrtpwhlcx-fwucyyzzs-mkhhhzoj, 1 puff, inhalation, Daily gabapentin, 300 mg, oral, QID guaiFENesin ER, 600 mg, oral, BID heparin flush (porcine), 5 mL, intra-catheter, BID insulin lispro, 0-10 Units, subcutaneous, TID with meals insulin lispro, 0-5 Units, subcutaneous, Nightly insulin NPH, 5 Units, subcutaneous, Daily ipratropium-albuteroL, 3 mL, nebulization, QID (RT) montelukast, 10 mg, oral, Nightly mycophenolate mofetil, 1,000 mg, oral, BID nicotine, 1 patch, transdermal, Daily pantoprazole DR, 40 mg, oral, BID piperacillin-tazobactam, 4.5 g, intravenous, Q6H ROSA MARIA [START ON 06/18/2024] predniSONE, 40 mg, oral, Daily rivaroxaban, 20 mg, oral, Daily with dinner sodium chloride 0.9%, 0.5-20 mL, intra-catheter, Q8H ROSA MARIA sodium chloride 0.9%, 0.5-20 mL, intra-catheter, Q8H ROSA MARIA sodium chloride 0.9%, 30 mL, swish & spit, QID tacrolimus, 0.5 mg, oral, Every other day vancomycin, 15 mg/kg, intravenous, Q12H voriCONAZOLE, 200 mg, oral, BID Continuous Medications: sodium chloride 0.9%, 30 mL/hr, Last Rate: 30 mL/hr (06/16/24 0626) sodium chloride 0.9%, 0-250 mL PRN Medications: acetaminophen aluminum & magnesium cgqgwefgn-buztrgzetez-dxretaelzmowubu-lidocaine bacitracin-polymyxin B camphor-menthoL dextrose OR dextrose glucagon heparin flush (porcine) lubricant ramelteon sodium chloride sodium chloride 0.9% sodium chloride 0.9% sodium chloride 0.9% sodium chloride 0.9% Objective Vitals: Most Recent: BP 115/71 (BP Location: Right arm, Patient Position: Lying;HOB 30 degrees) Pulse 94 Temp (!) 35.8 ??C (96.4 ??F) Resp 18 Ht 180.3 cm (5' 11 ) Wt 59 kg (130 lb 1.1 oz) SpO2 97% BMI 18.14kg/m?? 24hr Min/Max: Temp Min: 35.7 ??C (96.3 ??F) Max: 36.7 ??C (98.1 ??F) Pulse Min: 57 Max: 104 BP Min: 94/50 Max: 117/66 Resp Min: 10 Max: 25 SpO2 Min: 96 % Max: 100 % Vent settings: / /50 %/ Mode of Oxygenation: Oxygen Therapy SpO2: 97 % PaO2 from Lab: (!) 159 P/F Ratio: 318 Pulse Oximetry Type: Continuous pCO2 (TCOM, mmHg): 50 mmHg Patient Activity: Other (Comment) (followign PT session) O2 Therapy: Supplemental oxygen O2 Del Method: High flow nasal cannula Skin Intact: Yes FiO2 (%): 50 % O2 Flow Rate (L/min): 2 L/min SpO2 Alarm Limit High: 100 SpO2 Alarm Limit Low: 90 Oximetry Probe Site Changed: No (06/16/24 0940) I/O: Date 06/16/24699 - 06/17/2465806/17/24699 - 06/18/24 0659 Shift 24 Hour Total 0187-6593 6172-7890 24 Hour Total INTAKE I.V.(mL/kg) 400(6.8) 30(0.5) 430(7.3) IV Piggyback 440 440 320 320 Shift Total(mL/kg) 400(6.8) 470(8) 870(14.7) 320(5.4) 320(5.4) OUTPUT Urine(mL/kg/hr) 200(0.3) 200(0.1) 850 850 Shift Total(mL/kg) 200(3.4) 200(3.4) 850(14.4) 850(14.4) NET 200 470 670 -530 -530 Weight (kg) 59 59 59 59 59 59 Physical Exam: General: resting comfortably with no visible signs of distress HEENT: Moist mucus membranes, no evidence of lymphadenopathy Neuro: A&Ox3, follows commands, PERRL Cardiovascular: Audible S1, S2, RRR, no murmurs, gallops, rubs, +2 pulses, trace edema Lungs: lung sounds course and diminished bilaterally Abdomen: soft, nondistended, nontender, bowel sounds positive Skin: warm, dry, intact Musculoskeletal: moves all extremities Lab/Radiology/Diagnostic Review: Lab results in the last 24 hours: Recent Results (from the past 24 hour(s)) Urinalysis reflex to microscopic and culture Urine Collection Time: 06/16/24 4:03 PM Specimen: Urine Result Value Ref Range Color, ur Straw Yellow Clarity, ur Clear Clear Specific gravity, ur 1.019 1.003 - 1.030 pH, urine 6.0 Protein, ur ql Negative Negative Glucose, ur ql Negative Negative Ketones, ur Negative Negative Bilirubin, ur Negative Negative Blood, ur Negative Negative Urobilinogen, ur <2.0 <2.0 mg/dL Nitrite, ur Negative Negative Leukocyte esterase, ur Negative Negative UA reflex comment Reflex conditions for microscopic UA and culture not met. Drugs of Abuse Screen, Urine with Reflex Confirmation Collection Time: 06/16/24 4:03 PM Result Value Ref Range Amphetamine, ur Not Detected CutOff 500ng/mL Barbiturates, ur Not Detected CutOff 200ng/mL Benzodiazepines, ur Screen Positive, presumptive (A) CutOff 100ng/mL Cannabinoids, ur Not Detected CutOff 50 ng/mL Cocaine, ur Not Detected CutOff 150ng/mL Fentanyl, Ur Screen Positive, presumptive (A) CutOff 5 ng/mL Methadone, ur Not Detected CutOff 300ng/mL Opiates, ur Not Detected CutOff 300ng/mL Oxycodone, ur Not Detected CutOff 100ng/mL Phencyclidine, ur Not Detected CutOff 25 ng/mL Urine Creatinine 66 mg/dL Fentanyl Confirmation, Urine Collection Time: 06/16/24 4:03 PM Result Value Ref Range Fentanyl Conf, Ur Confirmed Positive (A) Cutoff 0.3ng/mL Acetylfentanyl Conf, Ur Does Not Confirm Cutoff 1 ng/mL Acrylfentanyl Conf, Ur Does Not Confirm Cutoff 1 ng/mL Furanylfentanyl Conf, Ur Does Not Confirm Cutoff 1 ng/mL Fentanyl Metabolite (Norfentanyl) Conf, Ur Confirmed Positive (A) CutOff 5 ng/mL Xylazine MS Does Not Confirm Cutoff 1 ng/mL POCT glucose Collection Time: 06/16/24 4:42 PM Result Value Ref Range Glucose, POC 156 70 - 199 mg/dL Basic metabolic panel Collection Time: 06/16/24 4:43 PM Result Value Ref Range Sodium 137 135 - 145 mmol/L Potassium, pl 4.9 3.3 - 4.9 mmol/L Chloride 101 97 - 110 mmol/L CO2 29 22 - 32 mmol/L Anion gap 7 2 - 15 mmol/L BUN 14 6 - 25 mg/dL Creatinine 0.97 0.80 - 1.30 mg/dL Glucose 143 70 - 199 mg/dL Calcium 8.9 8.5 - 10.3 mg/dL eGFR Collection Time: 06/16/24 4:43 PM Result Value Ref Range eGFR >90 >=60 mL/min/1.73 m2 POCT glucose Collection Time: 06/16/24 5:46 PM Result Value Ref Range Glucose, POC 157 70 - 199 mg/dL POCT glucose Collection Time: 06/16/24 7:17 PM Result Value Ref Range Glucose, POC 174 70 - 199 mg/dL POCT glucose Collection Time: 06/16/24 11:23 PM Result Value Ref Range Glucose, POC 224 (H) 70 - 199 mg/dL POCT glucose Collection Time: 06/17/24 3:36 AM Result Value Ref Range Glucose, POC 222 (H) 70 - 199 mg/dL Magnesium Collection Time: 06/17/24 4:05 AM Result Value Ref Range Magnesium 2.2 1.4 - 2.5 mg/dL Phosphorus Collection Time: 06/17/24 4:05 AM Result Value Ref Range Phosphorus, pl 2.5 2.3 - 4.5 mg/dL Basic metabolic panel Collection Time: 06/17/24 4:05 AM Result Value Ref Range Sodium 138 135 - 145 mmol/L Potassium, pl 4.6 3.3 - 4.9 mmol/L Chloride 101 97 - 110 mmol/L CO2 28 22 - 32 mmol/L Anion gap 9 2 - 15 mmol/L BUN 17 6 - 25 mg/dL Creatinine 0.88 0.80 - 1.30 mg/dL Glucose 202 (H) 70 - 199 mg/dL Calcium 8.5 8.5 - 10.3 mg/dL CBC without differential Collection Time: 06/17/24 4:05 AM Result Value Ref Range WBC 27.3 (H) 3.8 - 9.9 K/cumm Hgb 9.4 (L) 13.0 - 17.5 g/dL Hct 29.2 (L) 38.9 - 50.3 % Plt 409 (H) 150 - 400 K/cumm MPV 10.2 9.1 - 12.3 fL RBC 2.84 (L) 4.30 - 5.80 M/cumm MCV 102.8 (H) 81.3 - 96.4 fL MCH 33.1 27.1 - 33.3 pg MCHC 32.2 (L) 32.3 - 35.7 g/dL RDW CV 14.9 11.1 - 14.9 % RDW SD 56.4 (H) 35.7 - 48.1 fL NRBC abs 0.00 0.00 - 0.01 K/cumm Manual Differential Collection Time: 06/17/24 4:05 AM Result Value Ref Range Differential Manual Cells Counted 116 Neutrophil abs 26.8 (H) 1.5 - 6.5 K/cumm Imm gran abs 0.2 (H) 0.0 - 0.1 K/cumm Lymphocyte abs 0.0 (L) 0.8 - 3.3 K/cumm Monocyte abs 0.2 0.2 - 0.8 K/cumm Neutrophil pct 98.2 % Monocyte pct 0.9 % Promyelocyte pct 0.9 % RBC morphology Present (A) Anisocytosis Marked (A) Macrocytes > 15/HPF (A) Platelet estimate Adequate eGFR Collection Time: 06/17/24 4:05 AM Result Value Ref Range eGFR >90 >=60 mL/min/1.73 m2 POCT glucose Collection Time: 06/17/24 7:10 AM Result Value Ref Range Glucose, POC 206 (H) 70 - 199 mg/dL Glucose comment 1 Glu2: RN/ Notified Tacrolimus level trough Collection Time: 06/17/24 8:30 AM Result Value Ref Range Tacrolimus trough <1.0 ng/mL POCT glucose Collection Time: 06/17/24 11:33 AM Result Value Ref Range Glucose, POC 133 70 - 199 mg/dL Radiology Review: XR Chest 1 View Result Date: 06/16/2024 [...] it. Electronically signed by: Pearl Carvalho M.D. No valid procedures specified. LDA: Urethral Catheter Straight-tip (Active) Placement Date/Time: 06/17/24 1215 Inserted by: KAILEE Catheter Type: Straight-tip Tube Size (Fr.): 16 Fr Catheter Balloon Size: 10 mL Urine Returned: Yes Number of days: 0 Assessment/Plan Acute on chronic hypoxic respiratory failure (HCC) Assessment & Plan 2/2 mucus plugging, worsening infection vs COPD exacerbation -transferred to ICU on BiPap for resp distress -had bronch 06/16, will f/u labs -trial off BiPAP this am, keep off as able. -continue prednisone 40mg PO for 5 days and azithromycin 500mg PO for possible COPD exacerbation -continue vancomycin and zosyn (06/16-) -Continue bronchodilators COPD with Pulmonary emphysema (HCC) Assessment & Plan H/O COPD with emphysema, continues to smoke. -Continue trelegy ellipta -Duo nebs QID -Continue prednisone 40mg and azithromycin 500mg AML s/p Allo SCT in 2008 Assessment & Plan Follows Dr. Bauman, last seen in clinic on 06/09/2023 -AML diagnosed in 2008 s/p 7+3 and HiDAC consolidation x3 [facility] -Followed by Relapsed disease, status post alloSCT sister 08/27 match D): 11/09/2009. 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 voriconazole 200 b.i.d -BMT following * Right sided lung infiltrate Assessment & Plan Persistent/worsening lung infiltrate since 04/10,a after being treated for multifocal pneumonia withunderlying h/o AlloSCT and GVHD on immunosuppressants. Differentials include cryptogenic pna, but can also be related to Pulmonary GVHD ( though taking Cellcept and tacro and unilateral picture favour against worsening Pulmonary GVHD). 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 RVP -f/u bronch -Duonebs nebulization QID -continue on broad-spectrum antibiotics with vanco and Zosyn (06/16-) Tobacco abuse Assessment & Plan Encourage cessation Peripheral neuropathy Assessment & Plan Continue gabapentin CHF (congestive heart failure) ([facility]) ([facility]) Assessment & Plan TTE: 03/28/24: EF: 50-55%, low normal Systolic function, small pericardial effusion, BNP 1012 -monitor volume status, appears euvolemic on exam DVT (deep venous thrombosis) ([facility]) ([facility]) Assessment & Plan DVT lower ext 2012, DVT IJ 2017, PE 02/02/2013. -Restart Xarelto 20 mg a day (Last dose 06/14). Type 2 diabetes mellitus ([facility]) Assessment & Plan -A1c checked 6.7 -NPO, start accuchecks and SSI Q4H Upbyk-wgbdjy-gkap disease ([facility]) Assessment & Plan -Continue cellcept 100mg BID and tacrolimus 0.5 mg every other day. -tacro level < 0.1 FEN: Monitor and replete electrolytes, Access: PIV Ppx: xarelto Code status: Full Code Lluvia Arguello NP Cosigned by Parviz Hannon MD PhD at 06/18/2024 12:54 PM CDT Associated attestation - Parviz Hannon MD PhD - 06/18/2024 12:54 PM CDT Critical care time: I have spent 30 minutes in attendance of this patient making frequent reassessments and decisions regarding this patient's complex medical care in addition and separately from theNPP(non physician provider). Critical care was necessary to treat or prevent imminent or life-threatening deterioration of the following conditions. Respiratory failure R lung cavitary lesion Pulmonary GVHD Attending Physician Documentation: History: No acute events. Weaned to 2L O2 this morning. PE: Gen: NAD HEENT: anicteric, EOMI Neck: supple Resp: CTAB CV: RRR Abd: soft, nt Ext: WWP Lab: Labs and imaging reviewed A&P: 1) Acute respiratory failure: with underlying severe obstruction, acute onset post-bronchoscopy. -Continue current antibiotic coverage -Nebs, steroids, azithromycin -Wean BIPAP as tolerated -Pulmonary toilet -follow culture data 2) Cavitary lung lesion: -AFB + with negative TB PCR -follow bronch cultures -continue broad spectrum antibiotics. 3) AML:s/p allo c/b GVHD: -Continue MMF, tacro, check tac trough -OI PPx -BMT following 4) DVT/PE: restart xarelto FEN: NPO PPx: resume xarelto in AM Code: full I have seen and examined this patient on day of service. I have reviewed and confirmed the history,physical exam, laboratory and radiographic data with the NPP (non-physician provider) as documentedin the NPP note. I have reviewed and discussed my treatment plan with the ICU team and NPP. * Estefani Dolan, PT - 06/16/2024 4:56 PM CDT Physical Therapy 06/16/24 1600 General PT Missed Visit Reason Change in medical status (cx: ICU transfer for respiratory failure this date) * Kirt Hernandez MD PhD - 06/16/2024 2:19 PM CDT Hematologic Malignancies Progress Note Chief Complaint: Patient is a 58 y.o. male with chief complaint of pulmonary infiltrate. Subjective Patient not examined or interviewed due to being at bronchoscopy. Objective Vitals: 24hr Min/Max: Temp Min: 36.2 ??C (97.2 ??F) Max: 36.8 ??C (98.2 ??F) Pulse Min: 73 Max: 161 BP Min: 77/62 Max: 164/97 Resp Min: 13 Max: 32 SpO2 Min: 88 % Max: 100 % I/O last 2 completed shifts: In: - Out: 700 [Urine:700] Lab/Radiology/Diagnostic Review: Labs reviewed by me in [facility] CBC BMP, Magnesium, phosphorous notable for: Lab Results Component Value Date WBC 10.8 (H) 06/16/2024 HGB 10.2 (L) 06/16/2024 LABPLAT 435 (H) 06/16/2024 NEUTROABS 6.5 06/16/2024 CREATININE 0.97 06/16/2024 MAGNESIUM 1.5 06/16/2024 PHOS 2.5 06/16/2024 . CBC: Recent Labs Lab Units 06/16/24 033 WBC K/cumm 10.8* HEMOGLOBIN g/dL 10.2* HEMATOCRIT % 31.3* MCV fL 102.3* PLATELETS K/cumm 435* MCH pg 33.3 MCHC g/dL 32.6 RDW CV % 15.2* RDWSD fL 56.7* MPV fL 10.3 NEUTROS ABS K/cumm 6.5 LYMPHS PCT % 28.7 CMP: Recent Labs Lab Units 06/16/24 1018 06/16/24 0337 06/15/24 2231 06/15/24 1324 SODIUM mmol/L -- 137 -- 139 POTASSIUM PLASMA mmol/L -- 4.2 -- 4.3 CO2 mmol/L -- 28 -- 27 BUN SERUM mg/dL -- 17 -- 13 GLUCOSE mg/dL -- 90 -- 119 POC GLUCOSE MONITOR mg/dL 82 -- < > -- CREATININE mg/dL -- 0.97 -- 0.80 CALCIUM mg/dL -- 8.8 -- 9.6 CHLORIDE mmol/L -- 101 -- 101 ALBUMIN g/dL -- -- -- 3.3* AST Units/L -- -- -- 29 ALT Units/L -- -- -- 13 ALK PHOS Units/L -- -- -- 143* BILIRUBIN TOTAL mg/dL -- -- -- 0.2 TOTAL PROTEIN g/dL -- -- -- 8.4 ANIONGAP mmol/L -- 8 -- 11 < > = values in this interval not displayed. Assessment/Plan 58 yo M w/ progressive lung infiltrate # R lung infiltrate - worse since March 2024 - broad ddx given h/o SCT, tobacco use, immunosuppression, GVHD - Pulm consulted, s/p bronch, transferring to ICU for closer monitoring # AML - s/p alloSCT 2008 - continue MMF, tacro - continue acyclovir, vori Kirt Hernandez MD/PhD * Cruz Schaeffer, FRONT END DRUPAL DEVELOPER - 06/16/2024 9:38 AM CDT 2% 8 mls 1% 20 mls WASH 40 mls EBL 0 mls IV fluid 400 mls BAL 150 / 35 RML VERSED 4 mg given WASTED 1 mg RETURNED 5 mg FENTANYL 100 mcg given WASTED 0 mcg RETURNED 100 mcg LAST LIDO GIVEN / SCOPE IN 0857 NOTHING TO EAT ARE DRINK UNTIL PATIENT AWAKE A GAG REFLEX HAS RETURNED TO NORMAL. SCOPE OUT 0910 TOTAL SCOPE TIME 13 min FREQUENT VITALS NEEDED ON FLOOR. Q 15 X 2, Q 30 X 2, THEN Q ONE HOUR X 2. * Ramos Mercado MD - 06/16/2024 7:26 AM CDT Daily Progress Note Division of Hospital Medicine Name: Bri Jones : 1965 Today's Date: June 16, 2024 Age: 58 y.o. male Admission: 06/15/2024 Bed: [id number] LOS: 1 days Subjective Chief complaint: Right lung lesion Interval History Seen after bronchoscopy. Reporting throat itching/irritation and having cough from it. No change inoxygen requirements for some time. Denies any chest pain, fever, chills, nausea, vomiting or any other issues. Later cough worsened became tachypneic, tachycardic and hypoxic needing oxygen to go up. Was given breathing treatment. Chest x-ray obtained. RT and acting more than later eyes are contracted and transferred to MICU Objective Scheduled Meds PRN Meds Infusions acyclovir, 400 mg, oral, Q8H atorvastatin, 40 mg, oral, Daily icgadbttzoy-qmlkxqmdc-icqtduit, 1 puff, inhalation, Daily gabapentin, 300 mg, oral, QID guaiFENesin ER, 600 mg, oral, BID heparin flush (porcine), 5 mL, intra-catheter, BID ipratropium-albuteroL, 3 mL, nebulization, QID (RT) montelukast, 10 mg, oral, Nightly mycophenolate mofetil, 1,000 mg, oral, BID nicotine, 1 patch, transdermal, Daily pantoprazole DR, 40 mg, oral, BID piperacillin-tazobactam, 4.5 g, intravenous, Q6H ROSA MARIA [Held by Provider] rivaroxaban, 20 mg, oral, Daily with dinner sodium chloride 0.9%, 0.5-20 mL, intra-catheter, Q8H ROSA MARIA sodium chloride 0.9%, 0.5-20 mL, intra-catheter, Q8H ROSA MARIA sodium chloride 0.9%, 30 mL, swish & spit, QID tacrolimus, 0.5 mg, oral, Every other day vancomycin, 15 mg/kg, intravenous, Q12H voriCONAZOLE, 200 mg, oral, BID acetaminophen, 650 mg, oral, Q6H PRN aluminum & magnesium qkbxepoof-ggikmbxbick-ecohxofmavmxpsc-lidocaine, 15 mL, swish & swallow, QID PRN bacitracin-polymyxin B, 1 Application, topical, Q4H PRN camphor-menthoL, , topical, Q2H PRN sodium chloride 0.9%, 30 mL, intravenous, PRN sodium chloride 0.9%, 30 mL, intravenous, PRN cefepime, 1,000 mg, intravenous, Once PRN dextrose, 15 g, oral, Q15 Min PRN OR dextrose, 250 mL, intravenous, Q15 Min PRN glucagon, 1 mg, intramuscular, Q30 Min PRN heparin flush (porcine), 2-5 mL, intra-catheter, PRN loperamide, 2 mg, oral, Q1H PRN magnesium sulfate, 4 g, intravenous, Q4H PRN magnesium sulfate, 6 g, intravenous, Q4H PRN metoprolol, 2.5 mg, intravenous, Once PRN lubricant, 2 drop, each eye, Q4H PRN potassium chloride ER, 40 mEq, oral, Q2H PRN ramelteon, 8 mg, oral, Nightly PRN sodium chloride, 2 spray, each nostril, Q1H PRN sodium chloride 0.9%, 0.5-20 mL, intra-catheter, PRN sodium chloride 0.9%, 0.5-20 mL, intra-catheter, PRN sodium chloride 0.9%, 30 mL/hr, intravenous, Continuous PRN sodium chloride 0.9%, 0-250 mL, intravenous, PRN sodium phosphate - potassium phosphate, 500 mg, oral, Daily PRN white petrolatum-mineral oiL, , topical, Q2H PRN sodium chloride 0.9%, 30 mL/hr, Last Rate: 30 mL/hr (06/16/24 0626) sodium chloride 0.9%, 0-250 mL Vitals Most Recent Vitals: T 36.8 ??C (98.2 ??F), HR (!) 131, BP 152/88, RR 28, SpO2 100 %. 24hr Min/Max: Temp Min: 36.2 ??C (97.2 ??F) Max: 36.8 ??C (98.2 ??F) Pulse Min: 73 Max: 161 BP Min: 77/62 Max: 164/97 Resp Min: 13 Max: 32 SpO2 Min: 88 % Max: 100 % Intake/Output Summary (Last 24 hours) at 06/16/2024 1501 Last data filed at 06/16/2024 0922 Gross per 24 hour Intake 400 ml Output 700 ml Net -300 ml Physical Exam Vital signs and recent nursing notes reviewed. GENERAL: chronically ill appearing male, no acute distress. THROAT: oral mucosa moist. No lesions appreciated CV: RRR, no murmurs. No LE edema. PULM: CTAB anteriorely, 3 LPM O2 GI: BS+, non distended, non tender MSK: no joint swelling SKIN: no new rashes NEURO: Alert and oriented. Moves all extremities. No focal defects appreciated Lines, Drains, Airways Peripheral IV 06/15/24 22 G Left;Posterior Hand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 dense opacifications and cavitation worsening since recent admission in mid-March during which he was treated for CAP w/ IV antibiotics. 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 On review of chest films,process appears to have been developing since December 2023 in a RUL focus. Other notable symptoms in this interval: productive cough, unintentional weight loss, fatigue. DDx w/ cavitary lesion (TB, non-tuberculous mycobacterium, MRSA, klebsiella, fungal etiology - histo, blasto, coccidio, nocardia), malignant disease, worsening GVHD, CAP of typical microbial etiology inadequately treated previously, septic emboli (recent MSSA bacteremia - no AYUSH performed, or PE). Our team will arrange for bronchoscopy tomorrow w/ BAL to evaluate for infectious etiology. Given history of malignancy and appearance on CT, pulmonary malignancy of concern as well - may pursue repeat bronch on this admission w/endobronchial biopsy but last dose of Xarelto yesterday so will defer decision to later this week. Primary team should initiate broad, empiric antibiotics covering for likely pathogens (gram negatives, MRSA, anaerobes given cavitation) tomorrow after bronch. Recommendations: - please hold empiric antibiotics for now to increase yield for bronch studies tomorrow - place TB precautions (airborne) - please keep NPO after MN and will arrange for bronchoscopy tomorrow, likely mid-morning - will send broad infectious workup from BAL - agree with admission RVP, blood cultures, MRSA nares, urine histo, serum blasto antibody, Coccidiodes antibody, aspergillus galactomannan - will defer immunosuppression management to primary team - cont holding all therapeutic anticoagulation Ajay Chilel MD PGY-3 Internal Medicine This patient was staffed with Dr. Cameron Russell (Pulmonology). Cosigned by Cameron Russell MD at 06/15/2024 4:43 PM CDT Associated attestation - Cameron Russell MD - 06/15/2024 4:43 PM CDT Attending Documentation I have seen and examined the patient on 06/15/24. I agree with the findings and plan of care as documented in the resident's/fellow's note. 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 Recent chest imaging showed persistent upper lobe cavitary lesion, that has progressed in size compared to his prior film. He has had ongoing weight loss, but otherwise denies infectious symptoms. Given these radiographic findings, a bronchoscopy with lavage is reasonable. He recently received his Xarelto, and a biopsy will be deferred for now. He is on the schedule for tomorrow morning, and please ensure patient is NPO after midnight. Supplementary Attestation Today, I am treating the patient for cavitary pneumonia which is in severe exacerbation, progression, or experiencing treatment side effects as evidenced by symptoms and imaging, as described in the note. Independently interpreted test(s) including CT chest which shows increased upper lobe opacity with cavitation concerning for cavitary pneumonia. Discussed management of lung disease with primary service. Cameron Russell MD documented in this encounter Nursing Notes * Krystal Mitchell RN - 06/24/2024 1:48 PM CDT 06/24/24 1339 Pre-Education Assessment Time In 1200 Time Out 1300 Units of Service 4 Visit Type Initial Introduction ID verified;Alert/ oriented x 4;Education provided with patient approval;Patient present and able to participate (T2D admitted for Right lung lesion) Treatment Prior To Admission Blood glucose monitoring;Insulin (Lantus and Novolog) Knowledge Base Experienced Hemaglobin A1c Knows value (6.7%. Educator discussed how diet, exercise, meds, and monitoring can help manage DM) Home Testing Greater than 2 times per day Adherence To Insulin regimen;Blood Glucose Testing Regimen;Seldom misses Exercise Habits Sedentary Hypoglycemia Hardly ever (Educator discussed the s/s, treatments, and preventions of hypo and hyperglycemia, as well as sickday interventions.) Home Supplies Unknown Inpatient Recommendations RN to practice with patient Injections RN to reinforce with patient Consistent carb diet;Insulin injection site rotation Discharge Recommendations Insulin Pen Novalog FlexPen (pkg of 5);Lantus Solostar Pre-filled Pen (pkg of 5) (Educator discussed the role of insulin and B/SSI. Pt correctly demo'd how to use insulin pen by injecting a saline filled demo pen, into a demo pillow.) Pen [place] Ultra fine 4 mm Glucometer (Pt wears a Edi.iostyle Evaristo 2 CGM, and also has a back up meter w/ supplies at home.) Blood Glucose Testing Regimen 4 times per day (before meals, HS, and PRN.) Additional Recommendations Glucagon Emergency kit (if appropriate) Educator taught pt Diabetes info, Self Care Management, skills, and adherence with verbal and written instructions/info. During practice of a sliding scale, pt was able to determine correct doses, but he also stated that he uses a formula (not prescribed by MD) to calculate SSI doses. Educator informed pt of the importance of adhering to the prescribed med regimen. Pt verbalized understanding of info. Pt was also encouraged to f/u w/ PCP, Endo, and outpt teaching for further diabetes mgmt. * Kimberly Potter RN - 06/18/2024 6:02 PM CDT No wounds on transfer * Kimberly Guevara RN - 06/18/2024 11:58 AM CDT Assumed care of patient from now until 19:00. Will continue to monitor patient per order. * Michelle Hameed RN - 06/17/2024 8:25 AM CDT The [place] Swallow Protocol was administered to Bri Jones on 06/17/2024 at 0825 . This swallow screening is validated tool comprised of a brief cognitive screen, basic assessment oforal function and a 3 oz water swallow challenge. If passed, a diet is to be initiated per providerorder. If failed, the patient is to remain NPO until a formal swallow evaluation is completed by speech-language pathology. The patient passed the [place] Swallow Screen.. * Michelle Hameed RN - 06/16/2024 3:48 PM CDT Security to bedside to collect to pocket knifes x2, informed patient belongings to be sent with security, patient in agreement. Property receipt in chart. * Dora Bryant RN - 06/16/2024 2:38 PM CDT In to see pt around 1320 and SW in to talk w/ pt. Pt had blanket up over his head as he has most ofthe afternoon per pt to help him sleep. HR 100s and O2 sat mid 90s on CTM on 4L/NC. After pt finished speaking w SW, had increase in worsening of wet cough that he had prior to bronch, but appears dinorah exacerbated s/p bronch. Pt trying to talk but very gaspy and c/o chest tightness. Dr Mercado notified and sylvia morfin MD to bedside. RT in to assist with neb. HR 130s, RR 30s, and pt requesting O2 to be increased. Sats 90s on 6L/min but pt not having any symptomatic relief. Cough persistent. ACT Rns to bedside. CXR performed at bedside. Deemed necessary to transfer pt 7800 for respiratory dis tress. Pt remained A&OX4 throughout episode. Transferred to 7816. documented in this encounter Miscellaneous Notes * Provider Query - Marcela Silva MD - 06/24/2024 7:00 PM CDT Specify the diagnosis, after study, that best reflects the clinical condition being monitored, evaluated, or treated. Document in the medical record and on the form below. ___ Supraventricular tachycardia, POA _x__ Supraventricular tachycardia, not clinically significant ___ Other, specify below Additional Provider Response: Clinical Indicators/Treatments: ECG 12 lead Collection Time: 06/15/24 5:01 PM Result Value Ref Range Ventricular Rate EKG/Min 156 BPM Atrial Rate 156 BPM QRS-Interval (MSEC) 74 ms QT-Interval (MSEC) 288 ms QTc 464 ms R [place] 89 degrees T [place] -43 degrees Diagnosis Supraventricular tachycardia ST & T wave abnormality, consider inferolateral ischemia Abnormal ECG When compared with ECG of 15-JUN-2024 10:30, (unconfirmed) MANUAL COMPARISON REQUIRED PREVIOUS ECG IS INCOMPATIBLE ECG 12 lead Collection Time: 06/15/24 5:16 PM Result Value Ref Range Ventricular Rate EKG/Min 157 BPM Atrial Rate 79 BPM QRS-Interval (MSEC) 66 ms QT-Interval (MSEC) 324 ms QTc 523 ms R [place] 94 degrees T [place] -28 degrees Diagnosis Supraventricular tachycardia Rightward axis Anterior infarct , age undetermined ST & T wave abnormality, consider inferolateral ischemia Abnormal ECG When compared with ECG of 15-JUN-2024 17:01, (unconfirmed) T wave inversion more evident in Lateral leads JAN 22: adenosine Monitoring: VS and telemetry References: From the ICD-10-CM Official Guidelines for Coding and Reporting, use of terms such as likely, suspected, possible, or probable (associated with a specific diagnosis that is being evaluated, monitored, or treated as if it exists) are acceptable and can be coded in the inpatient setting when documented at the time of discharge. This documentation will become part of the patient???s medical record. Sincerely, Dali Jasso RN Clinical Documentation Developmental Therapist [facility] Payroll Clerk [email or web address] Provider Query - Anthony Graec MD - 06/24/2024 7:00 PM CDT Conflicting documentation is present in the medical record. Specify the appropriate diagnosis and document on the form below. 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 _x__ History of stem cell transplant ___ History of bone marrow transplant ___ History of both stem cell transplant and bone marrow transplant ___ Other explanation of clinical findings, specify below Additional Provider Response: Clinical Indicators/Treatments: 58 yr old male with AML, chronic GVHD of lungs, admitted for right upper lobe cavitary lesion. Pulmonology performed BAL on 06/16 while in ICU. This was notable for non-TB mycobacterium and Stenotrophomonas. The documentation in the chart alternates between a history of stem cell transplant and a history of bone marrow transplant. Clarification is needed for accurate coding. References: From the ICD-10-CM Coding Guidelines, use of terms such as likely, suspected, possible, or probable(associated with a specific diagnosis that is being evaluated, monitored, or treated as if it exists) are acceptable and can be coded in the inpatient setting when documented at the time of discharge. This documentation will become part of the patient???s medical record. Sincerely, Anaid Quinn Health Information Management * Plan of Care - Silva Rasheed RN - 06/24/2024 2:55 PM CDT Problem: Discharge Planning Goal: Understanding discharge needs will improve Outcome: Adequate for Discharge Problem: Isolation Lack of Knowledge Goal: Knowledge of risk factors and measures for prevention of condition will improve Outcome: Adequate for Discharge Problem: Isolation Physical Regulation Goal: Isolation- Spread of further infection will be prevented Outcome: Adequate for Discharge Goal: Isolation- Complications related to the disease process, condition, or treatment will be avoided or minimized. Outcome: Adequate for Discharge Problem: Fall Risk Goal: Ability to state ways to decrease the risk of falls will improve Outcome: Adequate for Discharge Goal: Will remain free from falls Outcome: Adequate for Discharge Goal: Will remain free from injury from falls Outcome: Adequate for Discharge Problem: Respiratory Goal: Ability to maintain a clear airway will improve Outcome: Adequate for Discharge Goal: Mechanical Ventilation will be safely managed Outcome: Adequate for Discharge Problem: Cardiovascular Goal: Maintains optimal cardiac output and hemodynamic stability Outcome: Adequate for Discharge Goal: Absence of cardiac dysrhythmias or at baseline Outcome: Adequate for Discharge Goal: Cardiovascular status will improve Outcome: Adequate for Discharge Problem: Skin/Tissue Integrity Goal: Skin integrity remains intact Outcome: Adequate for Discharge Goal: Incisions, wounds, or drain sites healing without S/S of infection Outcome: Adequate for Discharge Goal: Oral mucous membranes remain intact Description: Outcome: Adequate for Discharge Problem: Musculoskeletal Goal: Return mobility to safest level of function Outcome: Adequate for Discharge Goal: Maintain proper alignment of affected body part Outcome: Adequate for Discharge Goal: Return ADL status to a safe level of function Outcome: Adequate for Discharge Goal: Ability to perform activities at highest level will improve Outcome: Adequate for Discharge Goal: Mobility, ROM and muscle strength will improve Outcome: Adequate for Discharge Problem: Skin Integrity Impairment Risk Goal: Mobility will improve Outcome: Adequate for Discharge Goal: Understanding of ways to prevent future skin breakdown will improve Outcome: Adequate for Discharge Goal: Nutritional status will improve Outcome: Adequate for Discharge Goal: Risk for impaired skin integrity will decrease Outcome: Adequate for Discharge Problem: Neurosensory Goal: Achieves stable or improved neurological status Outcome: Adequate for Discharge Problem: Gastrointestinal Goal: Minimal or absence of nausea and vomiting Outcome: Adequate for Discharge Goal: Maintains or returns to baseline bowel function Outcome: Adequate for Discharge Problem: Lack of Knowledge Goal: Ability to develop a pain control plan will improve Outcome: Adequate for Discharge Problem: Medication Goal: Satisfaction with pain management medication regimen will improve Outcome: Adequate for Discharge Problem: Sensory Goal: Ability to identify factors that increase pain levels will improve while working to decrease the patient's pain levels Outcome: Adequate for Discharge Problem: Coping Goal: Ability to cope will improve Outcome: Adequate for Discharge Problem: Health Behavior Goal: Identification of resources available to assist in meeting health care needs will improve Outcome: Adequate for Discharge Problem: Genitourinary Goal: Urinary catheter remains patent Outcome: Adequate for Discharge Problem: Infection Goal: Absence of fever/infection during anticipated neutropenic period Outcome: Adequate for Discharge Problem: Discharge Planning Goal: Understanding discharge needs will improve Outcome: Adequate for Discharge Problem: Isolation Lack of Knowledge Goal: Knowledge of risk factors and measures for prevention of condition will improve Outcome: Adequate for Discharge Problem: Isolation Physical Regulation Goal: Isolation- Spread of further infection will be prevented Outcome: Adequate for Discharge Goal: Isolation- Complications related to the disease process, condition, or treatment will be avoided or minimized. Outcome: Adequate for Discharge Problem: Fall Risk Goal: Ability to state ways to decrease the risk of falls will improve Outcome: Adequate for Discharge Goal: Will remain free from falls Outcome: Adequate for Discharge Goal: Will remain free from injury from falls Outcome: Adequate for Discharge Problem: Respiratory Goal: Ability to maintain a clear airway will improve Outcome: Adequate for Discharge Goal: Mechanical Ventilation will be safely managed Outcome: Adequate for Discharge Problem: Cardiovascular Goal: Maintains optimal cardiac output and hemodynamic stability Outcome: Adequate for Discharge Goal: Absence of cardiac dysrhythmias or at baseline Outcome: Adequate for Discharge Goal: Cardiovascular status will improve Outcome: Adequate for Discharge Problem: Skin/Tissue Integrity Goal: Skin integrity remains intact Outcome: Adequate for Discharge Goal: Incisions, wounds, or drain sites healing without S/S of infection Outcome: Adequate for Discharge Goal: Oral mucous membranes remain intact Description: Outcome: Adequate for Discharge Problem: Musculoskeletal Goal: Return mobility to safest level of function Outcome: Adequate for Discharge Goal: Maintain proper alignment of affected body part Outcome: Adequate for Discharge Goal: Return ADL status to a safe level of function Outcome: Adequate for Discharge Goal: Ability to perform activities at highest level will improve Outcome: Adequate for Discharge Goal: Mobility, ROM and muscle strength will improve Outcome: Adequate for Discharge Problem: Skin Integrity Impairment Risk Goal: Mobility will improve Outcome: Adequate for Discharge Goal: Understanding of ways to prevent future skin breakdown will improve Outcome: Adequate for Discharge Goal: Nutritional status will improve Outcome: Adequate for Discharge Goal: Risk for impaired skin integrity will decrease Outcome: Adequate for Discharge Problem: Neurosensory Goal: Achieves stable or improved neurological status Outcome: Adequate for Discharge Problem: Gastrointestinal Goal: Minimal or absence of nausea and vomiting Outcome: Adequate for Discharge Goal: Maintains or returns to baseline bowel function Outcome: Adequate for Discharge Problem: Lack of Knowledge Goal: Ability to develop a pain control plan will improve Outcome: Adequate for Discharge Problem: Medication Goal: Satisfaction with pain management medication regimen will improve Outcome: Adequate for Discharge Problem: Sensory Goal: Ability to identify factors that increase pain levels will improve while working to decrease the patient's pain levels Outcome: Adequate for Discharge Problem: Coping Goal: Ability to cope will improve Outcome: Adequate for Discharge Problem: Health Behavior Goal: Identification of resources available to assist in meeting health care needs will improve Outcome: Adequate for Discharge Problem: Genitourinary Goal: Urinary catheter remains patent Outcome: Adequate for Discharge Problem: Infection Goal: Absence of fever/infection during anticipated neutropenic period Outcome: Adequate for Discharge Goals: Clinical Goals for the Shift: vss, remain free from falls, manage symptoms Summary: Patient's vss, patient remains free from falls. Patient discharged to home via cab at 1850. Discharge education complete, all personal belongings sent home with patient. * Plan of Care - Teresa Yoder RN - 06/24/2024 11:06 AM CDT ADMISSION FORM Encounter # MR# Enc Start Date Time 06/15/2024-1100 Pt Location [id number] [facility] 8800 CSN# LOC Clin Svc PAT Enc Type [id number] Acute Bone Marrow Transplant Inpatient Adm Dx CodeDesc 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 AML in remission w pneum* Inf Dis Visitor Restriction Confidential Adm Type Adm Source Last Enc Date No Urgent 1 Date - Age Race Ethnicity [place] Name 1965 (58 yrs) White Non- Gender Marital Holiness Soc Sec # Male MU-ISM [id number] Health Care Proxy [facility] Patient Living Will Status [place] Patient Name Address, Phone Employer Name, Address, Phone [facility] [address] [place] [address] Home: Work: DISABLED , Guarantor Name, Pt Rel, Address, Phone Guarantor Empr, Address, Phone [employer]AM[employer] Denton [address] [facility] Self SS#: [id number] , [place] [address] Work: [employer] Name Home Phone Work Phone Mobile Phone Relationship Lgl GrLAMAR Morrison [phone] Friend Insurance 1 Name, Address, Phone Policy Number Group Number SubscriberDOB JONESBRI Bertin 1965 Subscriber Employer [employer] [id number] [address] [address] Referral/Authorization # [place] [address] Eff. Date Pre-Cert. Phone Verified? 08/18/2020 Insurance 2 Name, Address, Phone Policy Number Group Number SubscriberDOB Subscriber Employer / Referral/Authorization # , Eff. Date Pre-Cert. Phone Verified? Insurance 3 Name, Address, Phone Policy Number Group Number SubscriberDOB Subscriber Employer / Referral/Authorization # , Eff. Date Pre-Cert. Phone Verified? Insurance 4 Name, Address, Phone Policy Number Group Number SubscriberDOB Subscriber Employer / Referral/Authorization # , Eff. Date Pre-Cert. Phone Verified? Primary Physician Referring Physician Admitting Physician, ID Attending Physician, Kirt Miranda, MD Ricardo Ricketts Nathan Amar, MD * Plan of Care - Anahi Ruff, BRANDEN - 06/24/2024 8:34 AM CDT Respiratory Medication Plan Situation: Patient is currently scheduled to receive Duo-Neb (Albuterol/Ipratropium), QID. Home Medications: Current Outpatient Medications Medication Instructions acetaminophen (TYLENOL) 1,000 mg, oral, 2 times daily PRN acyclovir (ZOVIRAX) 400 mg, oral, Every 8 hours albuterol HFA (PROVENTIL HFA,VENTOLIN HFA,PROAIR HFA) 90 mcg/actuation inhaler 2 puffs, inhalation,Every 6 hours PRN albuterol 2.5 mg, nebulization, Every 6 hours PRN ascorbic acid (VITAMIN C) 500 mg, oral, Daily atorvastatin (LIPITOR) 40 mg, oral, Daily cholecalciferol (VITAMIN D-3) 2,000 Units, oral, Every morning cyanocobalamin (VITAMIN B-12) 1,000 mcg, oral, Every morning diphenhydrAMINE-acetaminophen (TYLENOL PM) 25-500 mg tablet 2 tablets, oral, Nightly PRN flash glucose scanning reader (Edi.ioStyle Evaristo 2 [place]) [facility] Use to test blood glucose continuously flash glucose sensor (FreeStyle Evaristo 2 Sensor) kit Change sensor every 14 days aefdwqjaijg-pbxsxrqxt-tudpciyp (Trelegy Ellipta) 200-62.5-25 mcg inhaler 1 puff, inhalation, Daily gabapentin (NEURONTIN) 300 mg capsule TAKE ONE CAPSULE BY MOUTH FOUR TIMES DAILY @ [id number] guaiFENesin ER (MUCINEX) 600 mg, oral, 2 times daily insulin glargine (LANTUS, BASAGLAR, SEMGLEE) 10 Units, Nightly insulin lispro (HUMALOG, ADMELOG) 5-10 Units, subcutaneous, 3 times daily before meals, INJECT 5-10UNITS TID WITH MEALS PLUS SLIDING SCALE. TDD OF 35 UNITS. magnesium oxide (MAG-OX) 250 mg, oral, Every other day montelukast (SINGULAIR) 10 mg, oral, Nightly mycophenolate mofetil (CELLCEPT) 1,000 mg, oral, 2 times daily nicotine (NICODERM CQ) 21 mg 1 patch, transdermal, Daily omega-3 fatty acids (LOVAZA) 1 g, oral, Daily oxygen 2 L/min, each nostril, Nightly, Nightly and PRN pantoprazole DR (PROTONIX) 40 mg, oral, 2 times daily sucralfate (CARAFATE) 1 g, oral, 4 times daily (with meals and nightly) tacrolimus 0.5 mg, oral, Every other day UNKNOWN TO PATIENT 500 mg, oral, Daily, Patient endorses taking unknown 500 mg Iron product UNKNOWN TO PATIENT 1 capsule, oral, Daily, Probiotic
voriCONAZOLE (VFEND) 200 mg, oral, 2 times daily Xarelto 20 mg tablet TAKE ONE TABLET BY MOUTH DAILY AT 9 AM zinc gluconate 50 mg, oral, Daily Bronchodilator Assessment Score: 10 Pulmonary Status Smoking greater than or equal to 1 PPD, FEV1 < 65% predicted Surgical Status No Surgery Chest X-Ray Infiltrates in More Than One Lobe, Acute Interstitial Changes Resp Pattern Regular, Respiratory Rate less than or equal to 20 Mental Status Alert, Oriented, Cooperative Cough Strong, Non-Productive Breath Sounds Crackles in Bases, Wheezes, Unilaterally Absent Level of Activity Ambulatory with Assistance O2 Requirement 1-3 Liters or < 35% Oxygen therapy: SpO2 97 % O2 Therapy Supplemental oxygen Pulse Rate: Pre Treatment 84 bpm Post Treatment 86 Respiratory Rate: Pre Treatment 18 bpm Post [...] patient's progress. * Plan of Care - Narcisa Alva, BECKI - 06/24/2024 5:13 AM CDT Problem: Discharge Planning Goal: Understanding discharge needs [...] from injury from falls Outcome: Progressing Problem: Respiratory Goal: Ability to maintain a clear airway will improve Outcome: Progressing Goal: Mechanical Ventilation will be safely managed Outcome: Progressing Problem: Cardiovascular Goal: Maintains optimal cardiac output and hemodynamic stability Outcome: Progressing Goal: Absence of cardiac dysrhythmias or at baseline Outcome: Progressing Goal: Cardiovascular status will improve Outcome: Progressing Problem: Skin/Tissue Integrity Goal: Skin integrity remains intact Outcome: Progressing Goal: Incisions, wounds, or drain sites healing without S/S of infection Outcome: Progressing Goal: Oral mucous membranes remain intact Description: Outcome: Progressing Problem: Musculoskeletal Goal: Return mobility to safest level of function Outcome: Progressing Goal: Maintain proper alignment of affected body part Outcome: Progressing Goal: Return ADL status to a safe level of function Outcome: Progressing Goal: Ability to perform activities at highest level will improve Outcome: Progressing Goal: Mobility, ROM and muscle strength will improve Outcome: Progressing Problem: Skin Integrity Impairment Risk Goal: Mobility will improve Outcome: Progressing Goal: Understanding of ways to prevent future skin breakdown will improve Outcome: Progressing Goal: Nutritional status will improve Outcome: Progressing Goal: Risk for impaired skin integrity will decrease Outcome: Progressing Problem: Neurosensory Goal: Achieves stable or improved neurological status Outcome: Progressing Problem: Gastrointestinal Goal: Minimal or absence of nausea and vomiting Outcome: Progressing Goal: Maintains or returns to baseline bowel function Outcome: Progressing Problem: Lack of Knowledge Goal: [...] care needs will improve Outcome: Progressing Problem: Genitourinary Goal: Urinary catheter remains patent Outcome: Progressing Problem: Infection Goal: Absence of fever/infection during anticipated neutropenic period Outcome: Progressing Goals: Clinical Goals for the Shift: VSS, remain free from falls, walking o2 test, pain control, rest, monitor blood sugars Summary: VSS. No sleeping much throughout the night even with multiple sleep aids. No complaints ofpain or nausea. On 1 L NC throughout the night. Continues to have good po intake. No complaints of diarrhea. * Plan of Care - Cruz Flood RRT - 06/23/2024 5:21 PM CDT No changes in patient's respiratory status. Plan is to continue current therapy as ordered. * Plan of Care - Marry Abreu RN - 06/23/2024 4:10 PM CDT 06/16/24 1020 Discharge Planning Support System Other (Comment) (caregiver Lamar [phone]) Anticipated discharge level of care Private residence Does the patient need discharge transport arranged? 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 Shower chair at home. Caregiver assists with dressing, meal prep, patient bathes, feeds, and transfers self but unsteady gait OP Services N/A DME Resume Durable Medical Equipment Oxygen;Nebulizer;Walker (wheeled) Oxygen Detail 2L via NC at night. 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 ADD: 06-24-24 Plan & referrals made/in place: Plan to discharge home with caregiver Lamar [phone]. Shower chair at home. Caregiver assists with dressing, meal prep, patient bathes, feeds, and transfers self but unsteady gait. [facility] established 2L via [place] at night ; fax discharge summary to [phone] (specify [place] patient). RT note reports no oxygen need for home, MD states patient can resume nightly oxygen. 2 wheeled walker delivered 06-23-24 to bedside by Pat BUSBY. Discharge barriers: n/a Support following discharge: caregiver Lamar Transportation: caregiver Lamar F/U Appointments: Scheduled by BMT coordinator prior to discharge Patient's Identified Problem/Goal Problem: Ensure acute medical needs are met and that patient has a safe discharge plan. Goal: Secure a discharge plan that patient/family are agreeable with and ensure patient has continuum of care. Patient and/or family are agreeable with plan. vessel manager will continue to follow and assist with discharge planning as needed. If any further discharge needs arise, please contact the covering top case assembler. * ECIN Note - Marry Abreu RN - 06/23/2024 3:30 PM CDT Images from the original note were not included. Ethel Dee, FRONT END DRUPAL DEVELOPER Respiratory Therapist Respiratory Therapy Progress Notes Signed Date of Service: 06/23/2024 1:56 PM Signed Pulmonary Rehab 06/23/24 1300 Resting Information Resting HR. 90 bpm Resting SPO2 94 % Oxygen Setting RA Delivery Device none Ambulation Trials to Assess Desaturation to 88% Activity 1: Ambulated (feet) 350 feet (using a walker with 4 rest breaks) Oxygen Setting #1 RA SPO2 (%) #1 92 % Post Ambulation Assessment HR Post Assessment 106 bpm RR Post Assessment 22 breaths/m Post Assessment Recommendation RA @ rest and with activity SpO2 of 88% on room air must be documented. Then titrate FiO2 to keep SpO2 above 90%. Rest SpO2 94% HR 90 Resting on Room Air Exertion Patient ambulated 350 feet using a walker with 4 rest breaks SpO2 92% HR 109 while ambulating on room air Recommendations 0 LNC at rest 0 LNC with exertion Patient required > 4 LPM oxygen No * Plan of Care - Dora Patel RN - 06/23/2024 1:33 PM CDT Goals: Clinical Goals for the Shift: VSS, remain free from falls, walking o2 test, pain control, rest, monitor blood sugars Summary: continue plan of care. Problem: Discharge Planning Goal: Understanding discharge needs will improve Outcome: Progressing Problem: Isolation Lack of Knowledge Goal: Knowledge of risk factors and measures for prevention of condition will improve Outcome: Progressing Problem: Fall Risk Goal: Ability to state ways to decrease the risk of falls will improve Outcome: Progressing Goal: Will remain free from falls Outcome: Progressing Goal: Will remain free from injury from falls Outcome: Progressing * Summary of Treatment Recommendations Non-Billable - Sonia Pina NP - 06/23/2024 11:27 AM CDT Images from the original note were not included. Infectious Diseases Disharge Recommendations Diagnosis: Pneumonia - stenotroph & AFB Retained Infected Hardware : No Site of Infection(s): Lung Organism(s): Stenotroph and AFB Antibiotics Start Date: Steno - 06/17/24 PMD: BMT Infectious Disease Team: Transplant Infectious Disease Attending: Guillermo Medication Recommendations: Drug(s): Minocycline 200mg PO BID thru 06/27/24 Firm Stop (Yes/No): Yes Labs/Frequency to be Monitored: per primary team Imaging Recommended Before Follow Up: No Summary of Consultation: 58 yo male with AML s/p sib-allo SCT 2008 c/b GVHD admitted for R lung cavitary lesion. Pt has COPDand chronic resp failure requiring home O2. Pt continues to smoke. Pt was previously admitted at [facility] in March for SOB and CT noted dense multifocal airspace consolidations. He was tx' d with Cefe 7 days, Azithro 3 days, and pred taper. Pt does have h/o MSSA bacteremia in February. Bronch was performed (06/16) with cloudy fluid returned after lavage and noted presence of mucous plugs. Bronch washing (06/16) Stenotroph, AFB (neg MTB complex) BAL (06/16) Stenotroph. Few AFB seen on AFB direct exam - NO AFB to date on cx Fungal serologies were negative (serum Histo, urine Histo, Galactomannan, Blasto, serum Crypto). During admission pt received Zosyn (06/16-06/20), Azithro x 3 days, Pred taper, and Michael was started (06/18) for stenotroph will plans to complete 10 days. Will continue to monitor bronch cx's and AFB results. Will have pt f/u in ID clinic. Follow Up Plan: follow up with Dr. Pinzon in 2-3 wks, After discharge additional questions can be directed to the clinic at [phone], and ID clinic will arrange f/u Important Information for Healthcare Providers: Antibiotic Plan: Antibiotics: Minocycline thru 06/27/24 Infectious disease physician that saw the patient during hospital admission: Guillermo PLEASE CALL THE INFECTIOUS DISEASES CLINIC WITH ANY QUESTIONS AT: [phone] Leaving the Hospital on Oral Antibiotics Information for Patients and Families Infectious Diseases Because of your infection, you must be treated with antibiotics by mouth Timing is important! You should take your antibiotics on a regular schedule and not skip doses. This will give your bodyenough antibiotic to fight your infection. Finishing is important! You must finish all antibiotics unless told otherwise by your doctor. Taking all of your antibiotics will help get rid of your infection and prevent resistance to antibiotics. What to expect Labs: The infectious disease clinic may call you to instruct you to go to get labs drawn. Labs help us monitor your infection and watch out for antibiotic side effects. Telephone calls: You may receive lots of phone calls! People who may need to contact you include the infectious disease clinic, pharmacists, and doctors. Please make sure we have a working phone number for you so you can receive these calls that are important for your health Please make sure your voicemail is set up AND has space for us to leave a message (just in case we miss you!) Wound care Always wash hands with antibacterial soap and use alcohol-based hand admitting manager before touching or changing wound dressings. When drying hands, only use a clean paper towel. Follow-up Appointment Keeping your follow-up appointment is very important! Below are things that may happen or be decided at your infectious diseases clinic appointment. Look at the infection site to look for problems Determine how long you need to be on antibiotics Changing antibiotics after if needed Depending on how you are doing, we may order additional blood work or imaging tests to evaluate your infection Questions or Concerns?? Below are reasons to call the Infectious Diseases Clinic RIGHT AWAY! 1. Watery diarrhea more than 3 times in 24 hours. 2. Nausea, vomiting, and/or belly pain 3. Rash and/or itching 4. Chills 5. Drenching night sweats 6. Fever >100.3 7. Increasing redness and/or drainage from a wound 8. Confusion or personality changes Based on your symptoms, we may be able to help you over the phone or have your home health nurse help you. In some cases, you may need to go to the Emergency Room. What if my antibiotics are too expensive? If for any reason you are having trouble affording your oral antibiotics after discharge from the hospital, please call our infectious diseases clinic. Taking your oral antibiotics is very important to cure your infection, and if you are having trouble filling your prescription, we may be able to review your case to see if other oral antibiotic options might be cheaper, or work with our infectious diseases pharmacy ([phone]) to identify if there are any patient assistance programs that could help with cost. Contact Infectious Diseases Clinic: Toll-free: [phone] Hospital ID Doctor: Guillermo [facility] Infectious Diseases Offices [facility] [address], [address] [place] [address] Patient parking available north of [facility] Infectious Diseases and [facility] Offices [facility] ID Clinic [address], [address] [place] [address] [facility] ID Clinic [address], [address] [place] [address] * Plan of Care - Narcisa Alva RN - 06/23/2024 6:45 AM CDT Problem: Discharge Planning Goal: Understanding discharge needs [...] from injury from falls Outcome: Progressing Problem: Respiratory Goal: Ability to maintain a clear airway will improve Outcome: Progressing Goal: Mechanical Ventilation will be safely managed Outcome: Progressing Problem: Cardiovascular Goal: Maintains optimal cardiac output and hemodynamic stability Outcome: Progressing Goal: Absence of cardiac dysrhythmias or at baseline Outcome: Progressing Goal: Cardiovascular status will improve Outcome: Progressing Problem: Skin/Tissue Integrity Goal: Skin integrity remains intact Outcome: Progressing Goal: Incisions, wounds, or drain sites healing without S/S of infection Outcome: Progressing Goal: Oral mucous membranes remain intact Description: Outcome: Progressing Problem: Musculoskeletal Goal: Return mobility to safest level of function Outcome: Progressing Goal: Maintain proper alignment of affected body part Outcome: Progressing Goal: Return ADL status to a safe level of function Outcome: Progressing Goal: Ability to perform activities at highest level will improve Outcome: Progressing Goal: Mobility, ROM and muscle strength will improve Outcome: Progressing Problem: Skin Integrity Impairment Risk Goal: Mobility will improve Outcome: Progressing Goal: Understanding of ways to prevent future skin breakdown will improve Outcome: Progressing Goal: Nutritional status will improve Outcome: Progressing Goal: Risk for impaired skin integrity will decrease Outcome: Progressing Problem: Neurosensory Goal: Achieves stable or improved neurological status Outcome: Progressing Problem: Gastrointestinal Goal: Minimal or absence of nausea and vomiting Outcome: Progressing Goal: Maintains or returns to baseline bowel function Outcome: Progressing Problem: Lack of Knowledge Goal: [...] care needs will improve Outcome: Progressing Problem: Genitourinary Goal: Urinary catheter remains patent Outcome: Progressing Problem: Infection Goal: Absence of fever/infection during anticipated neutropenic period Outcome: Progressing Goals: Clinical Goals for the Shift: Patient will maintain stable vitals, bathe, ambulate, maintain PO intake and remain free of falls and injury. Summary: vss. No complaints of pain or nausea. Good po intake. * Plan of Care - Marisa Willams CRTT - 06/22/2024 2:14 PM CDT Patient with AML, GVHD, COPD, DM, CHF. He is resting in bed on a 2 L cannula.He was given DUO-NEB, which he tolerated well. Will continue treatments as ordered. * ECIN Note - Marry Abreu RN - 06/22/2024 12:11 PM CDT Images from the original note were not included. Esthela Fowler MD Resident Bone Marrow Transplant Progress Notes Cosign Needed Date of Service: 06/22/2024 7:37 AM Cosign Needed Expand All Collapse All[]Expand All by Default Hospitalist Consult Daily Progress Note as requested by BMT Physician Division of Hospital Medicine Name: Bri Jones : 1965 Today's Date: June 22, 2024 Age: 58 y.o. male Admission: 06/15/2024 Bed: [id number] LOS: 7 days Subjective Chief complaint: no complaints. Identifier: Bri Jones is a 58 y.o. male with PMH of AML s/p sibling allo-SCT 2008 with relapsed disease s/p salvage chemotherapy (AMD/[facility]) c/b GVHD (eyes, lungs?) in 2008 on tacrolimus and MMF, erosive esophagitis, DVT/PE on rivaroxaban, T2DM, HLD, CHF, COPD (baseline 3L O2) admitted for right upper lobe cavitary lesion. Interval History No other events overnight. Afebrile, VSS, on 2.5L NC. Eating well this am with mechanical soft - Cr 0.79, CO2 35, stable, Phos 2.2>3.5, Mg 1.3 s/p 4mg IV - Slightly elevated LFTs today ALP 221>170, AST 57/ALT 65 - WBC 13.2, Plt 403 - Plan for walking O2 test; likely DC to home (roommate home tomorrow) - Patient with difficulty ambulating with cane, ordered OP DME for 2 wheeled walker to assist with ambulation at home per patient preference; Patient has roommate at home to assist as well Objective Scheduled Meds PRN Meds Infusions Scheduled Medications acyclovir, 400 mg, oral, Q8H atorvastatin, 40 mg, oral, Daily kmluqpkzdae-mcgavgagn-brrmnsaf, 1 puff, inhalation, Daily gabapentin, 300 mg, oral, QID guaiFENesin ER, 1,200 mg, oral, BID heparin flush (porcine), 5 mL, intra-catheter, BID insulin lispro, 0-10 Units, subcutaneous, TID with meals insulin lispro, 0-5 Units, subcutaneous, Nightly ipratropium-albuteroL, 3 mL, nebulization, QID (RT) minocycline, 200 mg, oral, BID - special montelukast, 10 mg, oral, Nightly mycophenolate mofetil, 1,000 mg, oral, BID nicotine, 1 patch, transdermal, Daily pantoprazole DR, 40 mg, oral, BID ramelteon, 8 mg, oral, Nightly rivaroxaban, 20 mg, oral, Daily with dinner sodium chloride 0.9%, 0.5-20 mL, intra-catheter, Q8H ROSA MARIA sodium chloride 0.9%, 0.5-20 mL, intra-catheter, Q8H ROSA MARIA sodium chloride 0.9%, 30 mL, swish & spit, QID tacrolimus, 0.5 mg, oral, Every other day voriCONAZOLE, 200 mg, oral, BID PRN Meds acetaminophen, 650 mg, oral, Q6H PRN aluminum & magnesium storsroxk-wetanlcbqhe-gwyvyahtpngtjvt-lidocaine, 15 mL, swish & swallow, QID PRN bacitracin-polymyxin B, 1 Application, topical, Q4H PRN camphor-menthoL, , topical, Q2H PRN dextrose, 15 g, oral, Q15 Min PRN OR dextrose, 250 mL, intravenous, Q15 Min PRN glucagon, 1 mg, intramuscular, Q30 Min PRN heparin flush (porcine), 2-5 mL, intra-catheter, PRN loperamide, 2 mg, oral, TID PRN lubricant, 2 drop, each eye, Q4H PRN ramelteon, 8 mg, oral, Nightly PRN sodium chloride, 2 spray, each nostril, Q1H PRN sodium chloride 0.9%, 0.5-20 mL, intra-catheter, PRN sodium chloride 0.9%, 0.5-20 mL, intra-catheter, PRN sodium chloride 0.9%, 30 mL/hr, intravenous, Continuous PRN sodium chloride 0.9%, 0-250 mL, intravenous, PRN Infusion Meds sodium chloride 0.9%, 30 mL/hr, Last Rate: 30 mL/hr (06/22/24 0751) sodium chloride 0.9%, 0-250 mL Vitals Most Recent Vitals: T 37.1 ??C (98.8 ??F), HR 87, BP 112/60, RR 18, SpO2 97 %. 24hr Min/Max: Temp Min: 36.3 ??C (97.3 ??F) Max: 37.1 ??C (98.8 ??F) Pulse Min: 84 Max: 96 BP Min: 100/57 Max: 129/80 Resp Min: 16 Max: 18 SpO2 Min: 95 % Max: 100 % Intake/Output Summary (Last 24 hours) at 06/22/2024 1103 Last data filed at 06/22/2024 0934 Gross per 24 hour Intake 1630 ml Output 1525 ml Net 105 ml ICE Score: No data found. Baseline ICE Score: CRS and ICANS Grading: No data found. Physical Exam Vital signs and recent nursing notes reviewed. GENERAL: no acute distress. THROAT: oral mucosa moist. No lesions appreciated CV: RRR, no murmurs. No LE edema. PULM: decreased breath sounds, mild ronchi. GI: BS+, non distended, non tender : deferred MSK: no joint swelling SKIN: no new rashes NEURO: Alert and oriented. Moves all extremities. No focal defects appreciated Lines, Drains, Airways Peripheral IV 06/22/24 20 G Left Antecubital (Active) Labs/Diagnostic Review CBC: Recent Labs Lab Units 06/22/24 0439 WBC K/cumm 13.2* HEMOGLOBIN g/dL 10.2* HEMATOCRIT % 29.8* MCV fL 98.7* MCH pg 33.8* MCHC g/dL 34.2 RDW CV % 15.1* RDWSD fL 54.9* MPV fL 9.9 NEUTROS ABS K/cumm 7.4* LYMPHS PCT % 23.9 CMP: Recent Labs Lab Units 06/22/24 0740 06/22/24 0439 SODIUM mmol/L -- 140 POTASSIUM PLASMA mmol/L -- 3.5 CO2 mmol/L -- 35* BUN SERUM mg/dL -- 35* GLUCOSE mg/dL -- 203* POC GLUCOSE MONITOR mg/dL 190 -- CREATININE mg/dL -- 0.79* CALCIUM mg/dL -- 8.9 CHLORIDE mmol/L -- 99 ALBUMIN g/dL -- 3.0* AST Units/L -- 57* ALT Units/L -- 65* ALK PHOS Units/L -- 170* BILIRUBIN TOTAL mg/dL -- 0.2 TOTAL PROTEIN g/dL -- 6.8 ANIONGAP mmol/L -- 6 LDH: Recent Labs Lab Units 06/22/24 0439 LACTATE DEHYDROGENASE (LDH) Units/L 272* INR 1.86 Uric Acid:3.0 Tacrolimus level:- Sirolimus level: - Cyclosporine level: - (Labs above are the most recent result obtained in the last 24 hours unless otherwise specified. For additional labs/trends, see Epic.) I have reviewed the laboratory results. Imaging Review No results found. I have independently reviewed and interpreted OSH CT chest 05/28, CXR 06/16. RUL cavitary lesion. Bilateral emphysematous changes. Assessment/Plan Bri Jones is a 58 y.o. 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 # Acute on chronic hypoxic respiratory failure # Right-sided lung infiltrate # Non-TB mycobacterial infection # Stenotrophomonas infection # COPD exacerbation Patient is admitted for worsening right upper lobe lung disease with cavitary lesion. He became acutely hypoxic after admission requiring transfer to the ICU for BiPAP. He improved quickly and was weaned to 2L NC by transfer to BMT floor. Pulmonology performed BAL on 06/16 notable for mycobacterium (non-TB by PCR) and stenotrophomonas. Likely multifactorial with primarily infectious process with contributions from emphysematous COPD and subsequent mucus plugging with evidence of bronchiectasis on imaging. Diagnostics: - 06/12 CMV negative - 06/15 RVP negative - 06/16 BAL AFB stain with moderate acid-fast bacilli - 06/16 BAL AFB culture NGTD - 06/16 BAL TB PCR negative - 06/16 BAL culture with Stenotrophomonas maltophila, susceptible to Bactrim, levofloxacin, and minocycline - 06/16 BAL Pneumocystis DFA negative - 06/16 Fungal serologies (Crypto, galactomannan, Blasto) negative - 06/16 Fungal cultures NGTD - 06/16 BCx NG - 06/19 Urine Histo antigen pending Plan: - Transplant ID c/s, appreciate recs - Prednisone 40 mg PO daily (06/16 - 06/20) for COPD exacerbation - Azithromycin 500 mg daily (06/16 - 06/18) for COPD exacerbation - Vancomycin (06/16 - 06/18), MRSA nares negative - Pip-tazo 4.5 g QID (06/16 - 06/20) for pneumonia - Minocycline 200 mg BID x 10 days (06/18 - 06/27) for Steno - Trelegy Ellipta daily - DuoNebs QID - Home montelukast 10 mg daily - Anti-tussives/expectorants PRN - Outpatient follow-up with Dr. Pinzon for non-TB mycobacterium # AML s/p allo-SCT [address] Del Valle. Diagnosed in 2008 s/p 7+3 and HiDAC consolidation x3 followed by decitabine maintenance on [facility] [id number] protocol. Relapsed s/p allo- SCT from sister 08/27 match D0 = 11/09/09. Complicated by potential GVHD of eyes and lungs on MMF 1 g BID, tacrolimus 0.5 mg every other day. - MMF 1 g BID - Tacrolimus 0.5 every other day - OI ppx: acyclovir 400 mg TID, voriconazole 200 mg BID # Heart failure with preserved ejection fraction TTE 03/28/24 LVEF 50-55%, low-normal systolic function, small pericardial effusion. NT-proBNP 1012 on admission. - CTM # Type 2 diabetes mellitus A1c 6.7% - SSI with POCT BG - NPH with steroids # Peripheral neuropathy - Home gabapentin 300 mg QID # DVT DVT lower extremity in 2012, IJ 2017, with history of PE in 01/2013. - Home rivaroxaban 20 mg daily # Erosive esophagitis # Stress ulcer prophylaxis - Pantoprazole 40 mg BID # Hyperlipidemia - Atorvastatin 40 mg daily # Tobacco use disorder 0.5 ppd x 40 years, still smokes. - Nicotine replacement therapy Code status : Full Code Diet : Adult Diet Restricted; Mechanical Soft; Consistent Carbohydrate PT/OTDispo Rec: PT Recommendation/Plan: Home with intermittent assist / Supplementary Attestation My total encounter time on this service date was 48 minutes which was spent performing a [id number]-iz-[id number] encounter and personally completing the provider-level activities documented in the note. This includes time spent prior to the visit and after the visit in direct care of the patient. This time does not include time spent in any separately reportable services. Esthela Fowler MD Revision History * [facility] Note - Marry Abreu RN - 06/22/2024 11:32 AM CDT Images from the original note were not included. ADMISSION FORM Encounter # MR# Enc Start Date Time 06/15/2024-1100 Pt Location [id number] [facility] [id number] CSN# LOC Clin Svc PAT Enc Type [id number] Acute Bone Marrow Transplant Inpatient Adm Dx CodeDesc 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 AML in remission w pneum* Inf Dis Visitor Restriction Confidential Adm Type Adm Source Last Enc Date No Urgent 1 Date - Age Race Ethnicity [place] Name 1965 (58 yrs) White Non- Gender Marital Holiness Soc Sec # Male MU-ISM [id number] Health Care Proxy [facility] Patient Living Will Status [place] Patient Name Address, Phone Employer Name, Address, Phone Emplm BRI Dupree Bertin [address] [place] [address] Home: Work: DISABLED , Guarantor Name, Pt Rel, Address, Phone Guarantor Empr, Address, Phone Emplm [facility] BRI JONES Bertin [address] [facility] Self SS#: [id number] , [place] [address] Work: [employer] Name Home Phone Work Phone Mobile Phone Relationship Lgl LAMAR Johns [phone] Friend Insurance 1 Name, Address, Phone Policy Number Group Number SubscriberDOB BRI JONES 1965 Subscriber Employer [employer] [id number] [address] [address] Referral/Authorization # [place] [address] Eff. Date Pre-Cert. Phone Verified? 08/18/2020 Insurance 2 Name, Address, Phone Policy Number Group Number SubscriberDOB Subscriber Employer / Referral/Authorization # , Eff. Date Pre-Cert. Phone Verified? Insurance 3 Name, Address, Phone Policy Number Group Number SubscriberDOB Subscriber Employer / Referral/Authorization # , Eff. Date Pre-Cert. Phone Verified? Insurance 4 Name, Address, Phone Policy Number Group Number SubscriberDOB Subscriber Employer / Referral/Authorization # , Eff. Date Pre-Cert. Phone Verified? Primary Physician Referring Physician Admitting Physician, ID Attending Physician, Kirt Miranda, DO [phone] MD Ricardo Ricketts Nathan Amar, MD Incident Date Incident Type Inc St/Prov Incident Description / Location FOR EMS ONLY: * Plan of Care - Kimberly Guevara RN - 06/22/2024 9:16 AM CDT Problem: Discharge Planning Goal: Understanding discharge needs will improve Outcome: Ongoing Problem: Isolation Lack of Knowledge Goal: Knowledge of risk factors and measures for prevention of condition will improve Outcome: Ongoing Problem: Isolation Physical Regulation Goal: Isolation- Spread of further infection will be prevented Outcome: Ongoing Goal: Isolation- Complications related to the disease process, condition, or treatment will be avoided or minimized. Outcome: Ongoing Problem: Fall Risk Goal: Ability to state ways to decrease the risk of falls will improve Outcome: Ongoing Goal: Will remain free from falls Outcome: Ongoing Goal: Will remain free from injury from falls Outcome: Ongoing Problem: Respiratory Goal: Ability to maintain a clear airway will improve Outcome: Ongoing Goal: Mechanical Ventilation will be safely managed Outcome: Ongoing Problem: Cardiovascular Goal: Maintains optimal cardiac output and hemodynamic stability Outcome: Ongoing Goal: Absence of cardiac dysrhythmias or at baseline Outcome: Ongoing Goal: Cardiovascular status will improve Outcome: Ongoing Problem: Infection Goal: Absence of fever/infection during anticipated neutropenic period Outcome: Ongoing Problem: Lack of Knowledge Goal: Ability to develop a pain control plan will improve Outcome: Ongoing Goals: Clinical Goals for the Shift: Patient will maintain stable vitals, bathe, ambulate, maintain PO intake and remain free of falls and injury. Summary: patient resting in bed and in good spirits this morning. Patient denies pain and is tolerating breakfast this morning. Oxygen requirements are at baseline.will continue to monitor patient progression. * Plan of Care - Narcisa Alva RN - 06/22/2024 5:49 AM CDT Problem: Discharge Planning Goal: Understanding discharge needs will improve 06/22/2024 0549 by Narcisa lAva, RN Outcome: Partially Met 06/22/2024 0549 by Narcisa Alva RN Outcome: Progressing Problem: Isolation Lack of Knowledge Goal: Knowledge of risk factors and measures for prevention of condition will improve 06/22/2024548 by Narcisa Alva RN Outcome: Partially Met 06/22/2024548 by Narcisa Alva RN Outcome: Progressing Problem: Isolation Physical Regulation Goal: Isolation- Spread of further infection will be prevented 06/22/2024548 by Narcisa Alva RN Outcome: Partially Met 06/22/2024548 by Narcisa Alva RN Outcome: Progressing Goal: Isolation- Complications related to the disease process, condition, or treatment will be avoided or minimized. 06/22/2024548 by Narcisa Alva RN Outcome: Partially Met 06/22/2024548 by Narcisa Alva RN Outcome: Progressing Problem: Fall Risk Goal: Ability to state ways to decrease the risk of falls will improve 06/22/2024548 by Narcisa Alva RN Outcome: Partially Met 06/22/2024548 by Narcisa Alva RN Outcome: Progressing Goal: Will remain free from falls 06/22/2024548 by Narcisa Alva RN Outcome: Partially Met 06/22/2024548 by Narcisa Alva RN Outcome: Progressing Goal: Will remain free from injury from falls 06/22/2024548 by Narcisa Alva RN Outcome: Partially Met 06/22/2024548 by Narcisa Alva RN Outcome: Progressing Problem: Respiratory Goal: Ability to maintain a clear airway will improve 06/22/2024548 by Narcisa Alva RN Outcome: Partially Met 06/22/2024548 by Narcisa Alva RN Outcome: Progressing Goal: Mechanical Ventilation will be safely managed 06/22/2024548 by Narcisa Alva RN Outcome: Partially Met 06/22/2024548 by Narcisa Alva RN Outcome: Progressing Problem: Cardiovascular Goal: Maintains optimal cardiac output and hemodynamic stability 06/22/2024548 by Narcisa Alva RN Outcome: Partially Met 06/22/2024548 by Nacrisa Alva RN Outcome: Progressing Goal: Absence of cardiac dysrhythmias or at baseline 06/22/2024548 by Narcisa Alva RN Outcome: Partially Met 06/22/2024548 by Narcisa Alva RN Outcome: Progressing Goal: Cardiovascular status will improve 06/22/2024548 by Narcisa Alva RN Outcome: Partially Met 06/22/2024548 by Narcisa Alva RN Outcome: Progressing Problem: Skin/Tissue Integrity Goal: Skin integrity remains intact 06/22/2024548 by Narcisa Alva RN Outcome: Partially Met 06/22/2024548 by Narcisa Alva RN Outcome: Progressing Goal: Incisions, wounds, or drain sites healing without S/S of infection 06/22/2024548 by Narcisa Alva RN Outcome: Partially Met 06/22/2024548 by Narcisa Alva RN Outcome: Progressing Goal: Oral mucous membranes remain intact Description: 06/22/2024548 by Narcisa Alva RN Outcome: Partially Met 06/22/2024548 by Narcisa Alva RN Outcome: Progressing Problem: Musculoskeletal Goal: Return mobility to safest level of function 06/22/2024548 by Narcisa Alva RN Outcome: Partially Met 06/22/2024548 by Narcisa Alva RN Outcome: Progressing Goal: Maintain proper alignment of affected body part 06/22/2024548 by Narcisa Alva RN Outcome: Partially Met 06/22/2024548 by Narcisa Alva RN Outcome: Progressing Goal: Return ADL status to a safe level of function 06/22/2024548 by Narcisa Alva RN Outcome: Partially Met 06/22/2024548 by Narcisa Alva RN Outcome: Progressing Goal: Ability to perform activities at highest level will improve 06/22/2024548 by Narcisa Alva RN Outcome: Partially Met 06/22/2024548 by Narcisa Alva RN Outcome: Progressing Goal: Mobility, ROM and muscle strength will improve 06/22/2024548 by Narcisa Alva RN Outcome: Partially Met 06/22/2024548 by Narcisa Alva RN Outcome: Progressing Problem: Skin Integrity Impairment Risk Goal: Mobility will improve 06/22/2024548 by Narcisa Alva RN Outcome: Partially Met 06/22/2024548 by Narcisa Alva RN Outcome: Progressing Goal: Understanding of ways to prevent future skin breakdown will improve 06/22/2024548 by Narcisa Alva RN Outcome: Partially Met 06/22/2024548 by Narcisa Alva RN Outcome: Progressing Goal: Nutritional status will improve 06/22/2024548 by Narcisa Alva RN Outcome: Partially Met 06/22/2024548 by Narcisa Alva RN Outcome: Progressing Goal: Risk for impaired skin integrity will decrease 06/22/2024548 by Narcisa Alva RN Outcome: Partially Met 06/22/2024548 by Narcisa Alva RN Outcome: Progressing Problem: Neurosensory Goal: Achieves stable or improved neurological status 06/22/2024548 by Narcisa Alva RN Outcome: Partially Met 06/22/2024548 by Narcisa Alva RN Outcome: Progressing Problem: Gastrointestinal Goal: Minimal or absence of nausea and vomiting 06/22/2024548 by Narcisa Alva RN Outcome: Partially Met 06/22/2024548 by Narcisa Alva RN Outcome: Progressing Goal: Maintains or returns to baseline bowel function 06/22/2024548 by Narcisa Alva RN Outcome: Partially Met 06/22/2024548 by Narcisa Alva RN Outcome: Progressing Problem: Lack of Knowledge Goal: Ability to develop a pain control plan will improve 06/22/2024548 by Narcisa Alva RN Outcome: Partially Met 06/22/2024548 by Narcisa Alva RN Outcome: Progressing Problem: Medication Goal: Satisfaction with pain management medication regimen will improve 06/22/2024548 by Narcisa Alva RN Outcome: Partially Met 06/22/2024548 by Narcisa Alva RN Outcome: Progressing Problem: Sensory Goal: Ability to identify factors that increase pain levels will improve while working to decrease the patient's pain levels 06/22/2024548 by Narcisa Alva RN Outcome: Partially Met 06/22/2024548 by Narcisa Alva RN Outcome: Progressing Problem: Coping Goal: Ability to cope will improve 06/22/2024548 by Narcisa Alva RN Outcome: Partially Met 06/22/2024548 by Narcisa Alva RN Outcome: Progressing Problem: Health Behavior Goal: Identification of resources available to assist in meeting health care needs will improve 06/22/2024548 by Narcisa Alva RN Outcome: Partially Met 06/22/2024548 by Narcisa Alva RN Outcome: Progressing Problem: Genitourinary Goal: Urinary catheter remains patent 06/22/2024548 by Narcisa Alva RN Outcome: Partially Met 06/22/2024548 by Narcisa Alva RN Outcome: Progressing Goals: Clinical Goals for the Shift: Patient will maintain stable vitals, bathe, ambulate, maintain PO intake and remain free of falls and injury. Summary: vss. Sleep well overnight. Remain free of pain and nausea. * Plan of Care - Sudha Houston RN - 06/21/2024 6:46 PM CDT Goals: Clinical Goals for the Shift: Patient will maintain stable vitals, bathe, ambulate, maintain PO intake and remain free of falls and injury. Problem: Discharge Planning Goal: Understanding discharge needs [...] from injury from falls Outcome: Progressing Problem: Respiratory Goal: Ability to maintain a clear airway will improve Outcome: Progressing Goal: Mechanical Ventilation will be safely managed Outcome: Progressing Problem: Cardiovascular Goal: Maintains optimal cardiac output and hemodynamic stability Outcome: Progressing Goal: Absence of cardiac dysrhythmias or at baseline Outcome: Progressing Goal: Cardiovascular status will improve Outcome: Progressing Problem: Skin/Tissue Integrity Goal: Skin integrity remains intact Outcome: Progressing Goal: Incisions, wounds, or drain sites healing without S/S of infection Outcome: Progressing Goal: Oral mucous membranes remain intact Description: Outcome: Progressing Problem: Musculoskeletal Goal: Return mobility to safest level of function Outcome: Progressing Goal: Maintain proper alignment of affected body part Outcome: Progressing Goal: Return ADL status to a safe level of function Outcome: Progressing Goal: Ability to perform activities at highest level will improve Outcome: Progressing Goal: Mobility, ROM and muscle strength will improve Outcome: Progressing Problem: Skin Integrity Impairment Risk Goal: Mobility will improve Outcome: Progressing Goal: Understanding of ways to prevent future skin breakdown will improve Outcome: Progressing Goal: Nutritional status will improve Outcome: Progressing Goal: Risk for impaired skin integrity will decrease Outcome: Progressing Problem: Neurosensory Goal: Achieves stable or improved neurological status Outcome: Progressing Problem: Gastrointestinal Goal: Minimal or absence of nausea and vomiting Outcome: Progressing Goal: Maintains or returns to baseline bowel function Outcome: Progressing Problem: Lack of Knowledge Goal: [...] care needs will improve Outcome: Progressing Problem: Genitourinary Goal: Urinary catheter remains patent Outcome: Progressing Summary: Patient maintained stable vitals, bathed, only got up to stand bedside to urinate, and PO intake good. Patient prepared to discharge tomorrow or Saturday. * Plan of Care - Shelly Khan RN - 06/21/2024 6:45 AM CDT Problem: Discharge Planning Goal: Understanding discharge needs [...] from injury from falls Outcome: Progressing Problem: Respiratory Goal: Ability to maintain a clear airway will improve Outcome: Progressing Goal: Mechanical Ventilation will be safely managed Outcome: Progressing Problem: Cardiovascular Goal: Maintains optimal cardiac output and hemodynamic stability Outcome: Progressing Goal: Absence of cardiac dysrhythmias or at baseline Outcome: Progressing Goal: Cardiovascular status will improve Outcome: Progressing Problem: Skin/Tissue Integrity Goal: Skin integrity remains intact Outcome: Progressing Goal: Incisions, wounds, or drain sites healing without S/S of infection Outcome: Progressing Goal: Oral mucous membranes remain intact Description: Outcome: Progressing Problem: Musculoskeletal Goal: Return mobility to safest level of function Outcome: Progressing Goal: Maintain proper alignment of affected body part Outcome: Progressing Goal: Return ADL status to a safe level of function Outcome: Progressing Goal: Ability to perform activities at highest level will improve Outcome: Progressing Goal: Mobility, ROM and muscle strength will improve Outcome: Progressing Problem: Skin Integrity Impairment Risk Goal: Mobility will improve Outcome: Progressing Goal: Understanding of ways to prevent future skin breakdown will improve Outcome: Progressing Goal: Nutritional status will improve Outcome: Progressing Goal: Risk for impaired skin integrity will decrease Outcome: Progressing Problem: Neurosensory Goal: Achieves stable or improved neurological status Outcome: Progressing Problem: Gastrointestinal Goal: Minimal or absence of nausea and vomiting Outcome: Progressing Goal: Maintains or returns to baseline bowel function Outcome: Progressing Problem: Lack of Knowledge Goal: [...] care needs will improve Outcome: Progressing Problem: Genitourinary Goal: Urinary catheter remains patent Outcome: Progressing Goals: Clinical Goals for the Shift: vss, remain free from falls and injuries, sx mgmt Summary: Pt's VS were WNL during shift. Pt remained free from falls and injuries during shift. Sx managed w/ medications during shift. * Plan of Care - Sudha Houston RN - 06/20/2024 6:49 PM CDT Goals: Clinical Goals for the Shift: Patient will maintain stable vitals, bathe, ambulate, increase PO intake and remain free of falls and injury. Problem: Discharge Planning Goal: Understanding discharge needs [...] from injury from falls Outcome: Progressing Problem: Respiratory Goal: Ability to maintain a clear airway will improve Outcome: Progressing Goal: Mechanical Ventilation will be safely managed Outcome: Progressing Problem: Cardiovascular Goal: Maintains optimal cardiac output and hemodynamic stability Outcome: Progressing Goal: Absence of cardiac dysrhythmias or at baseline Outcome: Progressing Goal: Cardiovascular status will improve Outcome: Progressing Problem: Skin/Tissue Integrity Goal: Skin integrity remains intact Outcome: Progressing Goal: Incisions, wounds, or drain sites healing without S/S of infection Outcome: Progressing Goal: Oral mucous membranes remain intact Description: Outcome: Progressing Problem: Musculoskeletal Goal: Return mobility to safest level of function Outcome: Progressing Goal: Maintain proper alignment of affected body part Outcome: Progressing Goal: Return ADL status to a safe level of function Outcome: Progressing Goal: Ability to perform activities at highest level will improve Outcome: Progressing Goal: Mobility, ROM and muscle strength will improve Outcome: Progressing Problem: Skin Integrity Impairment Risk Goal: Mobility will improve Outcome: Progressing Goal: Understanding of ways to prevent future skin breakdown will improve Outcome: Progressing Goal: Nutritional status will improve Outcome: Progressing Goal: Risk for impaired skin integrity will decrease Outcome: Progressing Problem: Neurosensory Goal: Achieves stable or improved neurological status Outcome: Progressing Problem: Gastrointestinal Goal: Minimal or absence of nausea and vomiting Outcome: Progressing Goal: Maintains or returns to baseline bowel function Outcome: Progressing Problem: Lack of Knowledge Goal: [...] care needs will improve Outcome: Progressing Problem: Genitourinary Goal: Urinary catheter remains patent Outcome: Progressing Summary: Patient maintained stable vitals, bathed, ambulated minimally within room and had decent PO intake. Patient struggled with glucose control this shift maxing out at 405 before dinner. Patientwill discharge Saturday with abx at home. * Plan of Care - Dora Garza RRT - 06/20/2024 4:35 PM CDT Respiratory Medication Plan Situation: Patient is currently scheduled to receive Duo-Neb (Albuterol/Ipratropium), QID. Home Medications: Current Outpatient Medications Medication Instructions acetaminophen (TYLENOL) 1,000 mg, oral, 2 times daily PRN acyclovir (ZOVIRAX) 400 mg, oral, Every 8 hours albuterol HFA (PROVENTIL HFA,VENTOLIN HFA,PROAIR HFA) 90 mcg/actuation inhaler 2 puffs, inhalation,Every 6 hours PRN albuterol 2.5 mg, nebulization, Every 6 hours PRN ascorbic acid (VITAMIN C) 500 mg, oral, Daily atorvastatin (LIPITOR) 40 mg, oral, Daily cholecalciferol (VITAMIN D-3) 2,000 Units, oral, Every morning cyanocobalamin (VITAMIN B-12) 1,000 mcg, oral, Every morning diphenhydrAMINE-acetaminophen (TYLENOL PM) 25-500 mg tablet 2 tablets, oral, Nightly PRN flash glucose scanning reader (Edi.ioStyle Evaristo 2 [place]) [facility] Use to test blood glucose continuously flash glucose sensor (FreeStyle Evaristo 2 Sensor) kit Change sensor every 14 days mhyfsmkzpop-zwbwedfqo-dlufryvw (Trelegy Ellipta) 200-62.5-25 mcg inhaler 1 puff, inhalation, Daily gabapentin (NEURONTIN) 300 mg capsule TAKE ONE CAPSULE BY MOUTH FOUR TIMES DAILY @ [id number] guaiFENesin ER (MUCINEX) 600 mg, oral, 2 times daily insulin glargine (LANTUS, BASAGLAR, SEMGLEE) 10 Units, Nightly insulin lispro (HUMALOG, ADMELOG) 5-10 Units, subcutaneous, 3 times daily before meals, INJECT 5-10UNITS TID WITH MEALS PLUS SLIDING SCALE. TDD OF 35 UNITS. magnesium oxide (MAG-OX) 250 mg, oral, Every other day montelukast (SINGULAIR) 10 mg, oral, Nightly mycophenolate mofetil (CELLCEPT) 1,000 mg, oral, 2 times daily nicotine (NICODERM CQ) 21 mg 1 patch, transdermal, Daily omega-3 fatty acids (LOVAZA) 1 g, oral, Daily oxygen 2 L/min, each nostril, Nightly, Nightly and PRN pantoprazole DR (PROTONIX) 40 mg, oral, 2 times daily sucralfate (CARAFATE) 1 g, oral, 4 times daily (with meals and nightly) tacrolimus 0.5 mg, oral, Every other day UNKNOWN TO PATIENT 500 mg, oral, Daily, Patient endorses taking unknown 500 mg Iron product UNKNOWN TO PATIENT 1 capsule, oral, Daily, Probiotic
voriCONAZOLE (VFEND) 200 mg, oral, 2 times daily Xarelto 20 mg tablet TAKE ONE TABLET BY MOUTH DAILY AT 9 AM zinc gluconate 50 mg, oral, Daily Bronchodilator Assessment Score: 10 Pulmonary Status Severe or Chronic with Exacerbation, Trach/Intubated Surgical Status No Surgery Chest X-Ray Infiltrates in More Than One Lobe, Acute Interstitial Changes Resp Pattern Regular, Respiratory Rate less than or equal to 20 Mental Status Alert, Oriented, Cooperative Cough Strong, Non-Productive Breath Sounds Decreased Bilaterally/Coarse Level of Activity Ambulatory O2 Requirement 1-3 Liters or < 35% Oxygen therapy: SpO2 99 % O2 Therapy Supplemental oxygen Pulse Rate: Pre Treatment 96 bpm Post Treatment 81 Respiratory Rate: Pre Treatment 20 bpm Post Treatment 20 Respiratory Assessment: Resp Effort Unlabored Depth & [...] patient's progress. * Plan of Care - Elena Lorenzo - 06/20/2024 4:17 AM CDT Goals: Clinical Goals for the Shift: pain control, receive antibx, monitor respiratory status Problem: Discharge Planning Goal: Understanding discharge needs will improve Outcome: Progressing Flowsheets (Taken 06/20/2024412) Understanding of discharge needs will improve: Discuss information regarding discharge instructions Arrange for needed discharge resources and transportation as appropriate Identify discharge barriers Identify discharge learning needs (meds, wound care, etc.) Collaborate with case management interdisciplinary team Collaborate with language interpretation Problem: Fall Risk Goal: Ability to state ways to decrease the risk of falls will improve Outcome: Progressing Flowsheets (Taken 06/20/2024412) Ability to state ways to decrease the risk of falls will improve: Teach fall prevention measures Teach information regarding appropriate enviornmental changes Goal: Will remain free from falls Outcome: Progressing Flowsheets (Taken 06/20/2024412) Will remain free from falls: Assess risk factors for falls Implement fall prevention measures Collaborate with other disciplines Goal: Will remain free from injury from falls Outcome: Progressing Flowsheets (Taken 06/20/2024412) Will remain free from injury from falls: Provide safe environment for conduction of activities of daily living in hospital environment Problem: Skin/Tissue Integrity Goal: Skin integrity remains intact Outcome: Progressing Flowsheets (Taken 06/20/2024412) Skin integrity remains intact: Assess and document risk factors for pressure injury development Monitor for areas of redness and/or skin breakdown Assess and document skin integrity Problem: Musculoskeletal Goal: Return mobility to safest level of function Outcome: Progressing Flowsheets (Taken 06/20/2024412) Return mobility to safest level of function: Instruct patient/family in ordered activity level Assess patient stability and activity tolerance for standing, transferring and ambulating with or without assistive devices Ensure adequate protection for wounds/incisions during mobilization Obtain PT/OT consults as needed Assist with transfers and ambulation using safe patient handling equipment as needed Problem: Skin Integrity Impairment Risk Goal: Mobility will improve Outcome: Progressing Flowsheets (Taken 06/20/2024412) Mobility will improve: Encourage ambulation Encourage mobilization to extent of ability, assist with range of motion as needed Encourage turning and repositioning, assist as needed Collaborate with physical therapy Assess circulation, sensation and/or motion of extremity Problem: Neurosensory Goal: Achieves stable or improved neurological status Outcome: Progressing Flowsheets (Taken 06/20/2024412) Achieves Stable or Improved Neurological Status: Assess for and report changes in neurological status Maintain blood pressure and fluid volume within ordered parameters to optimize cerebral perfusion and minimize risk of hemorrhage Monitor temperature, glucose, and sodium. Initiate appropriate interventions as ordered Problem: Lack of Knowledge Goal: Ability to develop a pain control plan will improve Outcome: Progressing Flowsheets (Taken 06/20/2024412) Ability to develop a pain control plan will improve: Explain causes of pain and how long pain can be expected to last Educate pain scale for assessing level of pain Teach information regarding pain management Teach notification to healthcare provider of episodes of pain Problem: Coping Goal: Ability to cope will improve Outcome: Progressing Flowsheets (Taken 06/20/2024412) Ability to cope will Improve: Assess beliefs of pain Encourage vebalization of feelings surrounding pain Provide emotional support * Assessment & Plan Note - Katherine Wong MD PhD - 06/19/2024 6:06 PM CDTAssociated Problem(s): 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 Pinzon) * Assessment & Plan Note - Katherine Wong MD PhD - 06/19/2024 5:56 PM CDTAssociated Problem(s): Pneumonia due to stenotrophomonas Recent history of several courses of antibiotics including an MSSA bacteremia on cefazolin and pneumonia treated with cefepime and azithromycin. Bronch with BAL growing stenotrophomonas susceptible to minocycline. Infection with this bacteria is often found setting of dysbiosis due to disruption ofnormal oscar with history of antibiotic exposure. Recommend continuing minocycline for a 10 day course given severity of lung disease. Also being treated with piperacillin- tazobactam. No other organisms identified in BAL, which was done prior to the initiation of antibiotics. It would be reasonableto finish a 5 day course of this antibiotic. Recommendations: - minocycline 10 days (06/16-06/25) - piperacillin-tazobactam 5 days (06/16-06/20) * Hospital Course - Esthela Fowler MD - 06/19/2024 5:05 PM CDT # Acute on chronic hypoxic respiratory failure # Right-sided lung infiltrate # Non-TB mycobacterial infection # Stenotrophomonas infection # COPD exacerbation Patient was admitted for right upper lobe cavitary lesion. He became acutely hypoxic requiring ICU transfer for BiPAP, but was quickly weaned back to his baseline 2L NC. Pulmonology performed BAL on 06/16 while in ICU. This was notable for non-TB mycobacterium and Stenotrophomonas. Additional infectious workup (CMV, RVP, PJP, Crypto, galactomannan, Blasto, Histo) were negative. The patient received prednisone (06/16 - 06/20) and azithromycin (06/16 - 06/18) for COPD exacerbation; vancomycin (06/16 - 06/18) was discontinued on negative MRSA nares; Zosyn (06/16 - 06/20) for pneumonia; and minocycline (06/18 -06/27) for Stenotrophomonas. Patient's home Trelegy Ellipta daily and montelukast were continued during admission, and patient also received DuoNebs and anti-tussives PRN. Transplant ID was consulted and provided recommendations on Zosyn and minocycline as above. Patient will follow with Dr. Pinzon for further management of non-TB mycobacterial infection. On walk test, respiratory therapy determined that the patient did not need oxygen with rest or with walking. # AML s/p allo-SCT [address] Del Valle. Dx in 2008 s/p 7+3 and HiDAC consolidation x3 followed by decitabine maintenance on [facility] 69337 protocol. He relapsed then underwent allo-SCT from sister 08/27 match D0 = 11/09/09. 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 OI ppx with acyclovir, voriconazole were continued. # Heart failure with preserved ejection fraction: TTE 03/28/24 LVEF 50-55%, low- normal systolic function, small pericardial effusion. NT-proBNP 1012 on admission. Euvolemic during admission. # Type 2 diabetes mellitus: A1c 6.7%, managed with SSI and NPH with steroids. #Peripheral neuropathy: Continued home gabapentin 300 mg QID. #Hx DVT: Continued home rivaroxaban 20 mg daily. #Erosive esophagitis / #Stress ulcer prophylaxis: Continued home pantoprazole 40 mg BID #Hyperlipidemia: Continued home atorvastatin 40 mg daily #Tobacco use disorder: 0.5 ppd x 40 years, still smokes. Managed with nicotine replacement therapy while admitted. * Plan of Care - Kimberly Guevara RN - 06/19/2024 1:10 PM CDT Problem: Discharge Planning Goal: Understanding discharge needs will improve Outcome: Ongoing Problem: Isolation Lack of Knowledge Goal: Knowledge of risk factors and measures for prevention of condition will improve Outcome: Ongoing Problem: Isolation Physical Regulation Goal: Isolation- Spread of further infection will be prevented Outcome: Ongoing Goal: Isolation- Complications related to the disease process, condition, or treatment will be avoided or minimized. Outcome: Ongoing Problem: Fall Risk Goal: Ability to state ways to decrease the risk of falls will improve Outcome: Ongoing Goal: Will remain free from falls Outcome: Ongoing Goal: Will remain free from injury from falls Outcome: Ongoing Problem: Skin Integrity Impairment Risk Goal: Mobility will improve Outcome: Ongoing Goal: Understanding of ways to prevent future skin breakdown will improve Outcome: Ongoing Goal: Nutritional status will improve Outcome: Ongoing Goal: Risk for impaired skin integrity will decrease Outcome: Ongoing Problem: Cardiovascular Goal: Maintains optimal cardiac output and hemodynamic stability Outcome: Ongoing Goal: Absence of cardiac dysrhythmias or at baseline Outcome: Ongoing Goal: Cardiovascular status will improve Outcome: Ongoing Problem: Neurosensory Goal: Achieves stable or improved neurological status Outcome: Ongoing Problem: Gastrointestinal Goal: Minimal or absence of nausea and vomiting Outcome: Ongoing Goal: Maintains or returns to baseline bowel function Outcome: Ongoing Goals: Clinical Goals for the Shift: Remain free from falls, VSS, get adequate rest Summary: patient resting in bed and continued oxygen support. Patient denies any pain. Will continue to monitor frequency of bowel movements. * Plan of Care - Dariana Reese RN - 06/19/2024 6:00 AM CDT Problem: Discharge Planning Goal: Understanding discharge needs [...] from injury from falls Outcome: Progressing Problem: Respiratory Goal: Ability to maintain a clear airway will improve Outcome: Progressing Goal: Mechanical Ventilation will be safely managed Outcome: Progressing Problem: Cardiovascular Goal: Maintains optimal cardiac output and hemodynamic stability Outcome: Progressing Goal: Absence of cardiac dysrhythmias or at baseline Outcome: Progressing Goal: Cardiovascular status will improve Outcome: Progressing Problem: Skin/Tissue Integrity Goal: Skin integrity remains intact Outcome: Progressing Goal: Incisions, wounds, or drain sites healing without S/S of infection Outcome: Progressing Goal: Oral mucous membranes remain intact Description: Outcome: Progressing Problem: Musculoskeletal Goal: Return mobility to safest level of function Outcome: Progressing Goal: Maintain proper alignment of affected body part Outcome: Progressing Goal: Return ADL status to a safe level of function Outcome: Progressing Goal: Ability to perform activities at highest level will improve Outcome: Progressing Goal: Mobility, ROM and muscle strength will improve Outcome: Progressing Problem: Skin Integrity Impairment Risk Goal: Mobility will improve Outcome: Progressing Goal: Understanding of ways to prevent future skin breakdown will improve Outcome: Progressing Goal: Nutritional status will improve Outcome: Progressing Goal: Risk for impaired skin integrity will decrease Outcome: Progressing Problem: Neurosensory Goal: Achieves stable or improved neurological status Outcome: Progressing Problem: Gastrointestinal Goal: Minimal or absence of nausea and vomiting Outcome: Progressing Goal: Maintains or returns to baseline bowel function Outcome: Progressing Goals: Clinical Goals for the Shift: Remain free from falls, VSS, get adequate rest Summary: Remains free from falls, VSS, slept well overnight. No c/o NVD or pain * Plan of Care - Kimberly Potter RN - 06/18/2024 6:02 PM CDT Problem: Discharge Planning Goal: Understanding discharge needs [...] from injury from falls Outcome: Progressing Problem: Respiratory Goal: Ability to maintain a clear airway will improve Outcome: Progressing Goal: Mechanical Ventilation will be safely managed Outcome: Progressing Problem: Cardiovascular Goal: Maintains optimal cardiac output and hemodynamic stability Outcome: Progressing Goal: Absence of cardiac dysrhythmias or at baseline Outcome: Progressing Goal: Cardiovascular status will improve Outcome: Progressing Problem: Skin/Tissue Integrity Goal: Skin integrity remains intact Outcome: Progressing Goal: Incisions, wounds, or drain sites healing without S/S of infection Outcome: Progressing Goal: Oral mucous membranes remain intact Description: Outcome: Progressing Problem: Musculoskeletal Goal: Return mobility to safest level of function Outcome: Progressing Goal: Maintain proper alignment of affected body part Outcome: Progressing Goal: Return ADL status to a safe level of function Outcome: Progressing Goal: Ability to perform activities at highest level will improve Outcome: Progressing Goal: Mobility, ROM and muscle strength will improve Outcome: Progressing Problem: Skin Integrity Impairment Risk Goal: Mobility will improve Outcome: Progressing Goal: Understanding of ways to prevent future skin breakdown will improve Outcome: Progressing Goal: Nutritional status will improve Outcome: Progressing Goal: Risk for impaired skin integrity will decrease Outcome: Progressing Problem: Neurosensory Goal: Achieves stable or improved neurological status Outcome: Progressing Problem: Gastrointestinal Goal: Minimal or absence of nausea and vomiting Outcome: Progressing Goal: Maintains or returns to baseline bowel function Outcome: Progressing Goals: Clinical Goals for the Shift: VS, Pain control, Monitor I/O, Labs, Monitor respiratory status, Safety, Education Summary: vss, pain controlled, no fall/injury * Significant Event - HirLluvia cuevas NP - 06/18/2024 3:04 PM CDT Transfer Note: 7800 BMT/Onc ICU to BMT floor 58 y o male with PMhx of AML s/p sibling allogenic BMT in 2008 w/ relapsed disease s/p salvage chemotherapy (AMD/MEC) 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 Mr Jones was admitted to an OSH in for treatment of pneumonia s/p 7 days of cefepime + 3 days of azithromycin and MSSA bacteremia, s/p 6 weeks of IV ancef. He followed with his pulmonologistwith CT chest with worsening RUL pulmonary process. Also noted to have increased O2 requirements, worsening SOB, and reported weight loss. He was a direct admited to BMT floor for work up. Pulmonary consulted. They completed a BAL on 06/16. Post procedure, he was doing well, able to eat. He reports developing acute shortness of breath. An ACT was called due to dyspnea, RR 38 and accessory muscle use. He received a neb without improvement. Placed on NRB and brought to ICU. He was placed on BIPap,HR 130s on admission to ICU. In the ICU, started treatment for COPD exacerbation and contined empiric antibiotics. He was able to hold BIPAP the following am and titrated down NC to 2L. BAL resulteld with positive AFB, negative TB and stenotrop. Plan in the ICU. Acute on chronic hypoxic respiratory failure (HCC) Assessment & Plan 2/2 mucus plugging, worsening infection vs COPD exacerbation -Transferred to ICU on BiPap for resp distress -Off BiPAP 06/17 am -Currently on NC 2L, titrate to keep sats > 92% -Continue prednisone 40mg PO for 5 days and azithromycin 500mg PO for possible COPD exacerbation -Continue bronchodilators COPD with Pulmonary emphysema (HCC) Assessment & Plan H/O COPD with emphysema, continues to smoke. Treat for exacerbation -Continue trelegy ellipta -Duo nebs QID -Continue prednisone 40mg for 5 days and azithromycin 500mg AML s/p Allo SCT in 2008 Assessment & Plan Follows Dr. Bauman, last seen in clinic on 06/09/2023 -AML diagnosed in 2008 s/p 7+3 and HiDAC consolidation x3 followed by Decitabine maintenance on [facility] [address] protocol. -Followed by Relapsed disease, status post alloSCT sister 08/27 match D): 11/09/2009. 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 voriconazole 200 b.i.d -BMT following * Right sided lung infiltrate Assessment & Plan Likely secondary to non-TB mycobacterial infection and Steno -Infectious work up with 06/16 BAL with + AFB, negative TB PCR, Steno+, RVP neg -F/u sensitivities -Receiving Vancomycin (06/16-06/18, MRSA neg), Zosyn (06/16- ), and Azithromycin (06/16- ) Tobacco abuse Assessment & Plan Encourage cessation Peripheral neuropathy Assessment & Plan Continue gabapentin CHF (congestive heart failure) ([facility]) ([facility]) Assessment & Plan TTE: 03/28/24: EF: 50-55%, low normal Systolic function, small pericardial effusion, BNP 1012 -Monitor volume status, appears euvolemic on exam DVT (deep venous thrombosis) ([facility]) ([facility]) Assessment & Plan DVT lower ext 2012, DVT IJ 2017, PE 02/02/2013. -Continue Xarelto 20 mg a day Type 2 diabetes mellitus ([facility]) Assessment & Plan -A1c checked 6.7 -NPO, start accuchecks and SSI Q4H Mpexq-letjkl-pdxr disease ([facility]) Assessment & Plan -Continue cellcept 100mg BID and tacrolimus 0.5 mg every other day. * Provider Query - Lluvia Arguello NP - 06/18/2024 2:35 PM CDT Specify a diagnosis that reflects the patient???s lab findings and document in the medical record and on the form below. _x__ Respiratory acidosis _x__ Acute ___Unspecified ___ Acidosis, unspecified type ___ Abnormal laboratory findings, inconclusive diagnosis ___ Clinically insignificant abnormal laboratory findings ___ Other, specify below Additional Provider Response: Clinical Indicators/Treatments: MICU H&P 06/16 @ 1434 (red): acute on chronic hypoxemic respiratory failure with underlying severe obstruction, acute onset post-bronchoscopy; placed on NRBM @ 1417; ABG's @ 1445; placed on BiPAP @ 1454; transferred to MICU on BiPAP 06/16/24 14:45 pO2, Art POC 159 (H) SO2 (juan josé) arterial 100 (H) pH, Art 7.28 (L) PCO2 56 (H) Monitoring VS, O2 Sat, physical exam, weaning BiPAP as tolerated References: From the ICD-10-CM Official Guidelines for Coding and Reporting, use of terms such as likely, suspected, possible, or probable (associated with a specific diagnosis that is being evaluated, monitored, or treated as if it exists) are acceptable and can be coded in the inpatient setting when documented at the time of discharge. Acidosis Screening Criteria Acidemia is a low arterial pH (<7.35) which can result from a metabolic acidosis, respiratory acidosis, or both. Acidosis is the umbrella term for any process that lowers the pH (either by fall in bicarbonate or elevation in PCO2). It can be further characterized by metabolic/respiratory and then even further delineated by gap or non-gap (if metabolic) There can be multiple acid/base disorders in one patient, therefore the HCO3, the CO2, and the pH alone cannot always be used to diagnose a metabolic disorder. The whole clinical picture is necessaryto make the diagnosis. Metabolic Acidosis Metabolic Acidosis serum HCO3-< 22 mEq/L (< 22 mmol/L) or serum CO2 <22 Acidosis can be diagnosed with a low serum CO2. Serum CO2 may be measured in lieu of serum bicarbonate as serum bicarbonate comprises ??95% of CO2 measurement pH may be high, low, or normal Anion gap can be normal, normal high, or high Causes: Elevated gap: Renal failure, DKA, lactic acidosis, toxic alcohol ingestion Normal gap: GI loss, RTA, interstitial renal disease, ureterosigmoid loop, acetazolamide Lactic Acidosis is a type of metabolic acidosis While no definitive concentration of lactate has been established for the diagnosis of lactic acidosis, lactate concentrations > 4 mmol/L are generally considered indicative of significant lactic acidosis. Less extreme lactate and pH changes are referred to as hyperlacticemia (>2 mmol/L). Lactic acid > 4 mmol/L supports the diagnosis of lactic acidosis, even in the setting of normal CO2 and HCO3 values. (Neither anion gap or pH is a reliable criteria for lactic acidosis.) Lactic acidosis is not integral to sepsis and may be documented and coded as an additional diagnosis, when appropriate Respiratory Acidosis Respiratory Acidosis (Acute) Pco2> 45 mm Hg caused by hypoventilation with or without compensatory increase in bicarbonate (HCO3-) pH is usually low but may be near normal Causes: COPD, interstitial lung disease, obstructive sleep apnea Obstruction of larynx or trachea Abnormalities of chest muscles: polio, myasthenia, Guillain-Furman MANAGER OF RADIOLOGY depression due to drugs, anesthesia, obesity hypoventilation If provider believes patient has acidosis in the absence of above laboratory values, please document rationale and clinical impression in detail Acidosis References Zack CD, Stefania SWANSON. Lactic Acidosis. [Updated 2018Oct 12]. In: [employer] [Internet]. [facility]): [employer]; 2019-. Available from: https://www.ncbi.nlm.nih.gov/books/VLQ911166/ https://www.[employer]/contents/kicfjp-te-gegoem-acidosis https://www.[employer]/professional/oebnsqjca-ynm-odxrkelor-disorders/acid -nfds-hnfkqasjxw-cvu-disorders/metabolic-acidosis https://www.[employer]/professional/isubfjcnk-ger-razsqbguy-disorders/acid -sdxl-dkphtwpfvr-oot-disorders/respiratory-acidosis https://www.[employer]/professional/icnjwoayw-wmp-hjkuoaasv-disorders/acid -dmvb-tvudodxenz-tnc-disorders/lactic-acidosis Guide to Clinical Validation, Documentation and Coding, 2019 Edition, [employer] As of August 18, 2022, IPPS Final Rule updates, if acute respiratory acidosis is documented, the code for acute respiratory failure with hypercapnia will be reported. If chronic respiratory acidosis is documented, the code for chronic respiratory failure with hypercapnia. The diagnosis of acute respiratory acidosis is valid when it meets the criteria listed in this guideline and when appropriately documented by the provider. This documentation will become part of the patient???s medical record. Sincerely, Dali Jasso RN Clinical Documentation Developmental Therapist [facility] Payroll Clerk [email or web address] * Provider Query - Lluvia Arguello NP - 06/18/2024 2:34 PM CDT Please specify the TYPE and ACUITY of Heart Failure, and document in the medical record and on the form below. Type ___Diastolic: Includes HFpEF (preserved) (LVEF >/= 50%) with consistent findings on echo___ _x__ Clinically unable to determine Acuity _x__ Chronic (Compensated) ___ Acute on Chronic (Decompensated/Exacerbated) Additional Provider Response: Clinical Indicators/Treatments: Patient is a 58 y.o. 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 H&P 06/15 (tasha): PMH CHF; TTE: 03/28/24: EF: 50-55%, low normal Systolic function, small pericardial effusion 06/15 Consult (holland): team should initiate broad, empiric antibiotics covering for likely pathogens(gram negatives, MRSA, anaerobes given cavitation) tomorrow after bronch. NT-proBNP 1012 SEN 06/16 (bill): He had a bronch this AM for an enlarging cavitary lesion. Per report RN stated 150mL sterile saline was instilled but only 30 mL able to be suctioned out during BAL. ICU H&P (ashutosh): Pt had a bronchoscopy this AM. Post procedure, pt was doing well, able to eat. He reports developing acute shortness of breath. An ACT was called due to dyspnea, RR 38 and accessory muscle use. He treat with a neb without improved, was placed on NRB and brought to ICU. He was placed on BIPap, HR 130s on admission to ICU Continuing to monitor: I/O, CXR, telemetry, VS, O2 Sat, physical exam References: CHF Diagnostic Criteria CHF The commonly used [place] Diagnostic Criteria for Heart Failure requires the presence of 2 major criteria or 1 major and 2 minor criteria to make the diagnosis of heart failure. MAJOR CRITERIA MINOR CRITERIA Acute Pulmonary Edema Cardiomegaly Hepatojugular Reflux Neck Vein Distention Paroxysmal Nocturnal Dyspnea/Orthopnea Ankle Edema Dyspnea on Exertion Hepatomegaly Nocturnal Cough Pleural Effusion Tachycardia: HR>120 bpm This diagnostic tool is highly sensitive for the diagnosis of heart failure but has a relatively low specificity There is no single, noninvasive diagnostic test that serves as a gold standard for HF, since it is largely a clinical diagnosis based upon a careful history, physical examination, laboratory, and imaging data. Diastolic dysfunction or systolic dysfunction without mention of heart failure is not considered heart failure. If a provider believes patient has CHF in the absence of above clinical indicators, please documentrationale and clinical impression in detail. If acute or acute/chronic CHF is suspected and no IV diuretics are provided, please provide detailed rationale regarding acuity. General CHF Documentation Practices To be reported accurately, all instances of CHF require documentation of both ACUITY and TYPE Acuity: Acute-- rapid onset of new or worsening signs and symptoms of HF Chronic Acute on Chronic (may also be documented as ???exacerbated?? or ???decompensated?? ) Type: Systolic Includes HFrEF (LVEF </= 40%) and HFmrEF (LVEF 40-49%) Diastolic (or HFpEF)--LVEF >/= 50% with consistent findings on echo or an elevated LVEDP in the presence of a normal or reduced LVEDV on cardiac catheterization Combined systolic and diastolic Right-sided HF-- may be due to systolic left-sided HF, RV cardiomyopathy, valvular disease or lung disease such as pulmonary HTN, PE, or COPD Document any of the following if applicable: Biventricular failure End stage heart failure (AHA/ACC classification stage D) Left ventricular heart failure Rheumatic heart failure CHF References: Heart failure: Clinical manifestations and diagnosis in adults - UpToDate The epidemiology of congestive heart failure: the [place] Heart Study perspective - PMC (nih.gov) Congestive Heart Failure - StatPearls - NCBI [facility] (nih.gov) Acute Heart Failure: Definition, Classification and Epidemiology - [facility] (nih.gov) From the ICD-10-CM Coding Guidelines, use of terms such as likely, suspected, possible, or probable(associated with a specific diagnosis that is being evaluated, monitored, or treated as if it exists) are acceptable and can be coded in the inpatient setting when documented at the time of discharge. This documentation will become part of the patient???s medical record. Sincerely, Dali Jasso RN Clinical Documentation Developmental Therapist [facility] Payroll Clerk [email or web address] * Plan of Care - Kimberly Guevara RN - 06/18/2024 1:56 PM CDT Problem: Discharge Planning Goal: Understanding discharge needs will improve Outcome: Ongoing Problem: Isolation Lack of Knowledge Goal: Knowledge of risk factors and measures for prevention of condition will improve Outcome: Ongoing Problem: Isolation Physical Regulation Goal: Isolation- Spread of further infection will be prevented Outcome: Ongoing Goal: Isolation- Complications related to the disease process, condition, or treatment will be avoided or minimized. Outcome: Ongoing Problem: Fall Risk Goal: Ability to state ways to decrease the risk of falls will improve Outcome: Ongoing Goal: Will remain free from falls Outcome: Ongoing Goal: Will remain free from injury from falls Outcome: Ongoing Problem: Respiratory Goal: Ability to maintain a clear airway will improve Outcome: Ongoing Goal: Mechanical Ventilation will be safely managed Outcome: Ongoing Problem: Musculoskeletal Goal: Return mobility to safest level of function Outcome: Ongoing Goal: Maintain proper alignment of affected body part Outcome: Ongoing Goal: Return ADL status to a safe level of function Outcome: Ongoing Goal: Ability to perform activities at highest level will improve Outcome: Ongoing Goal: Mobility, ROM and muscle strength will improve Outcome: Ongoing Goals: Clinical Goals for the Shift: VS, Pain control, Monitor I/O, Labs, Monitor respiratory status, Safety, Education Summary: patient resting in bed with no complaints and in good spirits. Will continue to monitor vitals, respiratory status and await transfer to floor ready when ready * Provider Query - Lluvia Arguello NP - 06/18/2024 6:05 AM CDT Descriptive findings stated in the physical exam cannot be coded unless the provider further documents the condition as a diagnosis. Specify a diagnosis that reflects the patient???s physical exam findings. Document in the medical record and on the form below. ___ Cachexia, specify etiology if known _x__ Findings clinically insignificant ___ Other, specify below Additional Provider Response: Clinical Indicators/Treatments: Patient is a 58 y.o. 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 NUTRITION FOCUSED PHYSICAL EXAM: Completed. 06/16/24 ([facility]) Subcutaneous Fat Loss Orbital Region - Surrounding the Eye: Dark circles Cheek Region - Buccal Fat: Somewhat sunken appearance Upper Arm Region - Triceps/Biceps: Some depth pinch but not ample Muscle Loss [facility] - Temporalis Muscle: Slight depression Clavicle Bone Region - Pectoralis Major, Deltoid, Trapezius Muscles: Not visible in male, visible but not prominent in female Clavicle and Acromion Bone Region - Deltoid Muscle: Shoulder to arm joint looks square RD monitoring appetite, diet tolerance, weight changes, References: From the ICD-10-CM Official Guidelines for Coding and Reporting, use of terms such as likely, suspected, possible, or probable (associated with a specific diagnosis that is being evaluated, monitored, or treated as if it exists) are acceptable and can be coded in the inpatient setting when documented at the time of discharge. [employer] for Parenteral and Enteral Nutrition Cachexia Cachexia defined as: Complex medical syndrome associated with underlying illness and characterized by loss of muscle mass with or without loss of fat mass Potential Causes May Include: Malignancy (usually metastatic with an extensive tumor burden) Chronic Inflammatory Disorders (e.g., chronic infections, inflammatory bowel disease, and collagen vascular disorders) Organ Failure (e.g., cardiac, pulmonary [chronic obstructive pulmonary disease], and renal) Reference: Nutrition in Clinical Practice; Volume 36, No 5; August 2021; pp [phone]; 2020 [facility] for Parenteral and Enteral Nutrition. This documentation will become part of the patient???s medical record. Sincerely, Dali Jasso RN Clinical Documentation Developmental Therapist [facility] Payroll Clerk [email or web address] * Provider Query - Lluvia Arguello NP - 06/18/2024 6:04 AM CDT Specify a diagnosis that reflects the patient???s nutritional status, and document in the medical record and on the form below. _x__ Moderate Malnutrition ___ Malnutrition, unable to determine severity ___ Other explanation of clinical findings, specify below Additional Provider Response: Clinical Indicators/Treatments: Patient is a 58 y.o. 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 Dietitian assessment states: Patient meets criteria for Chronic Moderate Malnutrition based on ASPEN consensus criteria. ASPEN MALNUTRITION ASSESSMENT: Date of completion: 06/16/24 ([facility]) ASPEN/AND Malnutrition Screening: Chronic illness or injury mild/moderate Subcutaneous Fat Loss Severity: Mild/Moderate Muscle Mass Loss Severity: Mild/Moderate Patient Meets Criteria for Moderate Malnutrition: Yes Current Weight: 129 lbs BMI: 18.7 Energy intake %: Recent weight loss: 8 lbs in 3 months = 5.9% body weight Co-morbid conditions: DM, CHF, COPD Other (risk factors): Nutritional Supplements/stimulants: Ensure Plus HP /c meals RD Monitoring intake, diet tolerance, weight changes References: Adult Malnutrition Screening Criteria Criteria for [...] fat ? muscle ? 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 Sincerely, Dali Jasso RN Clinical Documentation Developmental Therapist [facility] Payroll Clerk [email or web address] * Plan of Care - Alfred Dolan, BRANDEN - 06/18/2024 3:59 AM CDT NPPV - STANDBY Situation: The patient was ordered on NPPV for Respiratory Distress. The patient is resting comfortably with no signs of distress, their respiratory status is within expected parameters; a hospital-provided NPPV machine is on standby at the bedside.. Plan: Continue to monitor the patient's respiratory status and place them on their bedside hospital-provided NPPV machine if they develop signs of respiratory distress.. * Plan of Care - Mat Brown RN - 06/18/2024 1:31 AM CDT Problem: Discharge Planning Goal: Understanding discharge needs will improve Outcome: Ongoing Problem: Isolation Lack of Knowledge Goal: Knowledge of risk factors and measures for prevention of condition will improve Outcome: Ongoing Problem: Isolation Physical Regulation Goal: Isolation- Spread of further infection will be prevented Outcome: Ongoing Goal: Isolation- Complications related to the disease process, condition, or treatment will be avoided or minimized. Outcome: Ongoing Problem: Fall Risk Goal: Ability to state ways to decrease the risk of falls will improve Outcome: Ongoing Goal: Will remain free from falls Outcome: Ongoing Goal: Will remain free from injury from falls Outcome: Ongoing Problem: Respiratory Goal: Ability to maintain a clear airway will improve Outcome: Ongoing Goal: Mechanical Ventilation will be safely managed Outcome: Ongoing Problem: Cardiovascular Goal: Maintains optimal cardiac output and hemodynamic stability Outcome: Ongoing Goal: Absence of cardiac dysrhythmias or at baseline Outcome: Ongoing Goal: Cardiovascular status will improve Outcome: Ongoing Problem: Skin/Tissue Integrity Goal: Skin integrity remains intact Outcome: Ongoing Goal: Incisions, wounds, or drain sites healing without S/S of infection Outcome: Ongoing Goal: Oral mucous membranes remain intact Description: Outcome: Ongoing Problem: Musculoskeletal Goal: Return mobility to safest level of function Outcome: Ongoing Goal: Maintain proper alignment of affected body part Outcome: Ongoing Goal: Return ADL status to a safe level of function Outcome: Ongoing Goal: Ability to perform activities at highest level will improve Outcome: Ongoing Goal: Mobility, ROM and muscle strength will improve Outcome: Ongoing Problem: Skin Integrity Impairment Risk Goal: Mobility will improve Outcome: Ongoing Goal: Understanding of ways to prevent future skin breakdown will improve Outcome: Ongoing Goal: Nutritional status will improve Outcome: Ongoing Goal: Risk for impaired skin integrity will decrease Outcome: Ongoing Goals: Clinical Goals for the Shift: VS, Pain control, Monitor I/O, Labs, Monitor respiratory status, Safety, Education Summary: Patient verbalizes understanding of clinical goals and is willing and able to work throughabove goals with staff. Plan of care and progression through clinical goals continues. * Plan of Care - Paty Cummings, BRANDEN - 06/17/2024 11:05 AM CDT Respiratory Medication Plan Situation: Patient is currently scheduled to receive Duo-Neb (Albuterol/Ipratropium), QID. Home Medications: Current Outpatient Medications Medication Instructions acetaminophen (TYLENOL) 1,000 mg, oral, 2 times daily PRN acyclovir (ZOVIRAX) 400 mg, oral, Every 8 hours albuterol HFA (PROVENTIL HFA,VENTOLIN HFA,PROAIR HFA) 90 mcg/actuation inhaler 2 puffs, inhalation,Every 6 hours PRN albuterol 2.5 mg, nebulization, Every 6 hours PRN ascorbic acid (VITAMIN C) 500 mg, oral, Daily atorvastatin (LIPITOR) 40 mg, oral, Daily cholecalciferol (VITAMIN D-3) 2,000 Units, oral, Every morning cyanocobalamin (VITAMIN B-12) 1,000 mcg, oral, Every morning diphenhydrAMINE-acetaminophen (TYLENOL PM) 25-500 mg tablet 2 tablets, oral, Nightly PRN flash glucose scanning reader (FreeStyle Evaristo 2 [place]) [facility] Use to test blood glucose continuously flash glucose sensor (FreeStyle Evaristo 2 Sensor) kit Change sensor every 14 days bwmvjcffmkn-zxqszzrmy-nevhwyjj (Trelegy Ellipta) 200-62.5-25 mcg inhaler 1 puff, inhalation, Daily gabapentin (NEURONTIN) 300 mg capsule TAKE ONE CAPSULE BY MOUTH FOUR TIMES DAILY @ [id number]-9PM guaiFENesin ER (MUCINEX) 600 mg, oral, 2 times daily insulin glargine (LANTUS, BASAGLAR, SEMGLEE) 10 Units, Nightly insulin lispro (HUMALOG, ADMELOG) 5-10 Units, subcutaneous, 3 times daily before meals, INJECT 5-10UNITS TID WITH MEALS PLUS SLIDING SCALE. TDD OF 35 UNITS. magnesium oxide (MAG-OX) 250 mg, oral, Every other day montelukast (SINGULAIR) 10 mg, oral, Nightly mycophenolate mofetil (CELLCEPT) 1,000 mg, oral, 2 times daily nicotine (NICODERM CQ) 21 mg 1 patch, transdermal, Daily omega-3 fatty acids (LOVAZA) 1 g, oral, Daily oxygen 2 L/min, each nostril, Nightly, Nightly and PRN pantoprazole DR (PROTONIX) 40 mg, oral, 2 times daily sucralfate (CARAFATE) 1 g, oral, 4 times daily (with meals and nightly) tacrolimus 0.5 mg, oral, Every other day UNKNOWN TO PATIENT 500 mg, oral, Daily, Patient endorses taking unknown 500 mg Iron product UNKNOWN TO PATIENT 1 capsule, oral, Daily, Probiotic
voriCONAZOLE (VFEND) 200 mg, oral, 2 times daily Xarelto 20 mg tablet TAKE ONE TABLET BY MOUTH DAILY AT 9 AM zinc gluconate 50 mg, oral, Daily Bronchodilator Assessment Score: 12 Pulmonary Status Severe or Chronic with Exacerbation, Trach/Intubated Surgical Status No Surgery Chest X-Ray Infiltrates, Lung Mass, Atelectasis, Pleural Effusion, CHF, Pulm Edema Resp Pattern Increased Respiratory Rate 21-25 Mental Status Alert, Oriented, Cooperative Cough Strong, Productive Breath Sounds Decreased Bilaterally/Coarse Level of Activity Ambulatory with Assistance O2 Requirement 1-3 Liters or < 35% Oxygen therapy: SpO2 99 % O2 Therapy Supplemental oxygen Pulse Rate: Pre Treatment 82 bpm Post Treatment 107 Respiratory Rate: Pre Treatment 22 bpm Post Treatment 22 Respiratory Assessment: Resp Effort Unlabored Depth & [...] monitor the patient's progress. * Plan of Shannon - Mark Bean RN - 06/16/2024 10:20 PM CDT Problem: Discharge Planning Goal: Understanding discharge needs will improve Outcome: Ongoing Problem: Isolation Lack of Knowledge Goal: Knowledge of risk factors and measures for prevention of condition will improve Outcome: Ongoing Problem: Isolation Physical Regulation Goal: Isolation- Spread of further infection will be prevented Outcome: Ongoing Goal: Isolation- Complications related to the disease process, condition, or treatment will be avoided or minimized. Outcome: Ongoing Problem: Fall Risk Goal: Ability to state ways to decrease the risk of falls will improve Outcome: Ongoing Goal: Will remain free from falls Outcome: Ongoing Goal: Will remain free from injury from falls Outcome: Ongoing Problem: Respiratory Goal: Ability to maintain a clear airway will improve Outcome: Ongoing Goal: Mechanical Ventilation will be safely managed Outcome: Ongoing Problem: Cardiovascular Goal: Maintains optimal cardiac output and hemodynamic stability Outcome: Ongoing Goal: Absence of cardiac dysrhythmias or at baseline Outcome: Ongoing Goal: Cardiovascular status will improve Outcome: Ongoing Problem: Skin/Tissue Integrity Goal: Skin integrity remains intact Outcome: Ongoing Goal: Incisions, wounds, or drain sites healing without S/S of infection Outcome: Ongoing Goal: Oral mucous membranes remain intact Description: Outcome: Ongoing Problem: Musculoskeletal Goal: Return mobility to safest level of function Outcome: Ongoing Goal: Maintain proper alignment of affected body part Outcome: Ongoing Goal: Return ADL status to a safe level of function Outcome: Ongoing Goal: Ability to perform activities at highest level will improve Outcome: Ongoing Goal: Mobility, ROM and muscle strength will improve Outcome: Ongoing Problem: Skin Integrity Impairment Risk Goal: Mobility will improve Outcome: Ongoing Goal: Understanding of ways to prevent future skin breakdown will improve Outcome: Ongoing Goal: Nutritional status will improve Outcome: Ongoing Goal: Risk for impaired skin integrity will decrease Outcome: Ongoing Goals: Clinical Goals for the Shift: VSS, BiPAP, monitor respiratory, NPO, trend labs, promote sleep, safety and comfort * Assessment & Plan Note - Fadia Red NP - 06/16/2024 6:46 PM CDT Associated Problem(s): Right sided lung infiltrate Likely secondary to non-TB mycobacterial infection and Steno -Infectious work up with 06/16 BAL with + AFB, negative TB PCR, Steno+, RVP neg -F/u sensitivities -Receiving Vancomycin (06/16-06/18, MRSA neg), Zosyn (06/16- ), and Azithromycin (06/16- ) * Assessment & Plan Note - Fadia Red NP - 06/16/2024 6:44 PM CDT Associated Problem(s): Tobacco abuse Encourage cessation * Assessment & Plan Note - Fadia Red NP - 06/16/2024 6:43 PM CDT Associated Problem(s): CHF (congestive heart failure) (CMS/HCC) (HCC) TTE: 03/28/24: EF: 50-55%, low normal Systolic function, small pericardial effusion, BNP 1012 -Monitor volume status, appears euvolemic on exam * Assessment & Plan Note - Fadia Red NP - 06/16/2024 6:41 PM CDT Associated Problem(s): Type 2 diabetes mellitus (HCC) -A1c checked 6.7 -NPO, start accuchecks and SSI Q4H * Assessment & Plan Note - Fadia Red NP - 06/16/2024 6:39 PM CDT Associated Problem(s): Peripheral neuropathy Continue gabapentin * Assessment & Plan Note - Fadia Red NP - 06/16/2024 6:38 PM CDT Associated Problem(s): Ngulg-bnejlf-fowh disease (HCC) -Continue cellcept 100mg BID and tacrolimus 0.5 mg every other day. * Assessment & Plan Note - Fadia Red NP - 06/16/2024 6:37 PM CDT Associated Problem(s): DVT (deep venous thrombosis) ([facility]/HCC) (HCC) DVT lower ext 2012, DVT IJ 2017, PE 02/02/2013. -Continue Xarelto 20 mg a day * Assessment & Plan Note - Fadia Red NP - 06/16/2024 6:36 PM CDT Associated Problem(s): COPD with Pulmonary emphysema (HCC) H/O COPD with emphysema, continues to smoke. Treat for exacerbation -Continue trelegy ellipta -Duo nebs QID -Continue prednisone 40mg for 5 days and azithromycin 500mg * Assessment & Plan Note - Fadia Red NP - 06/16/2024 6:34 PM CDT Associated Problem(s): AML s/p Allo SCT in [address] Bauman, last seen in clinic on 06/09/2023 -AML diagnosed in 2008 s/p 7+3 and HiDAC consolidation x3 followed by Decitabine maintenance on [facility] [address] protocol. -Followed by Relapsed disease, status post alloSCT sister 08/27 match D): 11/09/2009. 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 voriconazole 200 b.i.d -BMT following * Assessment & Plan Note - Fadia Red NP - 06/16/2024 6:32 PM CDT Associated Problem(s): Acute on chronic hypoxic respiratory failure (HCC) 2/2 mucus plugging, worsening infection vs COPD exacerbation -Transferred to ICU on BiPap for resp distress -Off BiPAP 06/17 am -Currently on NC 2L, titrate to keep sats > 92% -Continue prednisone 40mg PO for 5 days and azithromycin 500mg PO for possible COPD exacerbation -Continue bronchodilators * Plan of Care - Dora Garza RRT - 06/16/2024 5:38 PM CDT Respiratory Medication Plan Situation: Patient is currently scheduled to receive Duo-Neb (Albuterol/Ipratropium), QID. Home Medications: Current Outpatient Medications Medication Instructions acetaminophen (TYLENOL) 1,000 mg, oral, 2 times daily PRN acyclovir (ZOVIRAX) 400 mg, oral, Every 8 hours albuterol HFA (PROVENTIL HFA,VENTOLIN HFA,PROAIR HFA) 90 mcg/actuation inhaler 2 puffs, inhalation,Every 6 hours PRN albuterol 2.5 mg, nebulization, Every 6 hours PRN ascorbic acid (VITAMIN C) 500 mg, oral, Daily atorvastatin (LIPITOR) 40 mg, oral, Daily cholecalciferol (VITAMIN D-3) 2,000 Units, oral, Every morning cyanocobalamin (VITAMIN B-12) 1,000 mcg, oral, Every morning diphenhydrAMINE-acetaminophen (TYLENOL PM) 25-500 mg tablet 2 tablets, oral, Nightly PRN flash glucose scanning reader (Edi.ioStyle Evaristo 2 [place]) [facility] Use to test blood glucose continuously flash glucose sensor (FreeStyle Evaristo 2 Sensor) kit Change sensor every 14 days hhjjiwqjdua-qlmqaggtr-tujaqngz (Trelegy Ellipta) 200-62.5-25 mcg inhaler 1 puff, inhalation, Daily gabapentin (NEURONTIN) 300 mg capsule TAKE ONE CAPSULE BY MOUTH FOUR TIMES DAILY @ [id number]-[id number]-9PM guaiFENesin ER (MUCINEX) 600 mg, oral, 2 times daily insulin glargine (LANTUS, BASAGLAR, SEMGLEE) 10 Units, Nightly insulin lispro (HUMALOG, ADMELOG) 5-10 Units, subcutaneous, 3 times daily before meals, INJECT 5-10UNITS TID WITH MEALS PLUS SLIDING SCALE. TDD OF 35 UNITS. magnesium oxide (MAG-OX) 250 mg, oral, Every other day montelukast (SINGULAIR) 10 mg, oral, Nightly mycophenolate mofetil (CELLCEPT) 1,000 mg, oral, 2 times daily nicotine (NICODERM CQ) 21 mg 1 patch, transdermal, Daily omega-3 fatty acids (LOVAZA) 1 g, oral, Daily oxygen 2 L/min, each nostril, Nightly, Nightly and PRN pantoprazole DR (PROTONIX) 40 mg, oral, 2 times daily sucralfate (CARAFATE) 1 g, oral, 4 times daily (with meals and nightly) tacrolimus 0.5 mg, oral, Every other day UNKNOWN TO PATIENT 500 mg, oral, Daily, Patient endorses taking unknown 500 mg Iron product UNKNOWN TO PATIENT 1 capsule, oral, Daily, Probiotic
voriCONAZOLE (VFEND) 200 mg, oral, 2 times daily Xarelto 20 mg tablet TAKE ONE TABLET BY MOUTH DAILY AT 9 AM zinc gluconate 50 mg, oral, Daily Bronchodilator Assessment Score: 19 Pulmonary Status Severe or Chronic with Exacerbation, Trach/Intubated Surgical Status No Surgery Chest X-Ray Infiltrates in More Than One Lobe, Acute Interstitial Changes Resp Pattern Increased Respiratory Rate 21-25 Mental Status Lethargic, Disoriented, Follows Commands Cough Weak, Non-Productive Breath Sounds Severe Wheezes and/or Rhonchi, Bilaterally Absent Level of Activity Non-Ambulatory O2 Requirement 4-6 Liters, or greater than or equal to 35% to 50% Oxygen therapy: SpO2 100 % O2 Therapy Supplemental oxygen Pulse Rate: Pre Treatment 108 bpm Post Treatment 107 Respiratory Rate: Pre Treatment 27 bpm Post Treatment 22 Respiratory Assessment: Resp Effort Labored Depth & Rhythm Tachypnea Assessment Symmetrical BRONCHODILATOR EVALUATION /ASSESSMENT SCORE 0-6 [...] been notified to remind and chart. * Significant Event - Fadia Valadez RN - 06/16/2024 2:57 PM CDT ACT RN [id number] - [id number] RN called for resp distress. 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 He hada bronch this AM for an enlarging cavitary lesion. Per report RN stated 150mL sterile saline was instilled but only 30 mL able to be suctioned out during BAL. On ACT RN arrival primary RN and MD @ BS. Pt is dyspneic, RR 38, accessory muscle use noted. 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 Neb treatment givenby RT w/o improvement. He is tachy to 130s, spo2 99% on 6L HFNC, he is unable to speak more than 1-2 words. Stat portable CXR obtained. Coughing continuously. He was placed on 15L NRB and taken to 7816, on monitor, VSS throughout. SBAR to MICU staff. JH * Significant Event - Ramos Mercado MD - 06/16/2024 2:41 PM CDT Critical Care Event Note Division of Hospital Medicine Name: Bri Jones : 1965 Service Date: June 16, 2024 Age: 58 y.o. male Admit Date: 06/15/2024 Bed: [id number] LOS: 1 days Date/Time of event: 06/16/24 2:41 PM The patient required Critical Care to treat or prevent imminent or life- threatening deterioration of the following medical problems or diagnoses: Acute on chronic hypoxic respiratory failure Critical Care provided: Serial bedside exams, STAT imaging ordered, Administration of supplemental oxygen, and ICU contacted to discuss transfer of care Post bronchoscopy patient developed throat irritation and wet cough, not bringing much and did wellfor some time but later developed worsening shortness of breathing requiring oxygen to go up on 6 LPM to maintain saturation. Mentation at baseline. Denied any chest pain. On vitals afebrile, Tachycardic between 110 to 130s and tachypneic. On lung exam does not have significant crackles or wheezing. Given nebulization with minimal benefit. Chest x-ray obtained. Was already started on broad-spectrum antibiotic with vanco and Zosyn earlier. Per report during bronch 150 mL fluid instilled and only30 returned and purulence noted suggestive of infection. ACT and RT were involved and later ICU triage called due to no improvement in patient condition and need for close monitoring and patient was accepted to MICU for further management. I spent a total of 60 minutes in full attendance of this critically ill patient making frequent bed-side assessments and coordinating medical care. Critical care time was exclusive of any separately billed procedures or teaching time. I have reviewed and confirmed the patient's history, physical exam, laboratory, and radiographic data. Ramos Mercado MD * Consults, Subsequent - Cameron Russell MD - 06/16/2024 2:31 PM CDT Pulmonary Subsequent Consult Subjective Chief complaint of cavitary pneumonia. Interval History: He feels about the same today. Bronchoscopy was performed, and although he is coughing up more after the procedure, is feeling stable. Scheduled Meds:acyclovir, 400 mg, oral, Q8H atorvastatin, 40 mg, oral, Daily vkgdxjextxh-cmlktsfzz-mdzkeyku, 1 puff, inhalation, Daily gabapentin, 300 mg, oral, QID guaiFENesin ER, 600 mg, oral, BID heparin flush (porcine), 5 mL, intra-catheter, BID montelukast, 10 mg, oral, Nightly mycophenolate mofetil, 1,000 mg, oral, BID nicotine, 1 patch, transdermal, Daily pantoprazole DR, 40 mg, oral, BID piperacillin-tazobactam, 4.5 g, intravenous, Q6H ROSA MARIA [Held by Provider] rivaroxaban, 20 mg, oral, Daily with dinner sodium chloride 0.9%, 0.5-20 mL, intra-catheter, Q8H ROSA MARIA sodium chloride 0.9%, 0.5-20 mL, intra-catheter, Q8H ROSA MARIA sodium chloride 0.9%, 30 mL, swish & spit, QID tacrolimus, 0.5 mg, oral, Every other day vancomycin, 15 mg/kg, intravenous, Q12H voriCONAZOLE, 200 mg, oral, BID Continuous Infusions:sodium chloride 0.9%, 30 mL/hr, Last Rate: 30 mL/hr (06/16/24 0626) sodium chloride 0.9%, 0-250 mL PRN Meds:. acetaminophen aluminum & magnesium kwbehvgik-psjhvfnnszp-hakhhfavrwxbtgf-lidocaine bacitracin-polymyxin B camphor-menthoL sodium chloride 0.9% sodium chloride 0.9% cefepime dextrose OR dextrose glucagon heparin flush (porcine) ipratropium-albuteroL loperamide magnesium sulfate magnesium sulfate metoprolol lubricant potassium chloride ER ramelteon sodium chloride sodium chloride 0.9% sodium chloride 0.9% sodium chloride 0.9% sodium chloride 0.9% sodium phosphate - potassium phosphate white petrolatum-mineral oiL I/O last 2 completed shifts: In: - Out: 700 [Urine:700] Objective Vitals: Vitals: 06/16/24 1417 BP: 164/97 Pulse: (!) 129 Resp: (!) 32 Temp: SpO2: 100% Physical Exam: General: No acute distress HEENT: Normocephalic and atraumatic Cardiovascular: Tachycardic Chest: Diminished Abdomen: Soft Extremities: Acyanotic Data: I have reviewed labs from last 24 hours. Pertinent findings include: Bronchoscopy studies are pending. Cultures are no growth to date Recent Results (from the past 24 hour(s)) ECG 12 lead Collection Time: 06/15/24 5:01 PM Result Value Ref Range Ventricular Rate EKG/Min 156 BPM Atrial Rate 156 BPM QRS-Interval (MSEC) 74 ms QT-Interval (MSEC) 288 ms QTc 464 ms R [place] 89 degrees T [place] -43 degrees Diagnosis Supraventricular tachycardia ST & T wave abnormality, consider inferolateral ischemia Abnormal ECG When compared with ECG of 15-JUN-2024 10:30, (unconfirmed) MANUAL COMPARISON REQUIRED PREVIOUS ECG IS INCOMPATIBLE ECG 12 lead Collection Time: 06/15/24 5:16 PM Result Value Ref Range Ventricular Rate EKG/Min 157 BPM Atrial Rate 79 BPM QRS-Interval (MSEC) 66 ms QT-Interval (MSEC) 324 ms QTc 523 ms R [place] 94 degrees T [place] -28 degrees Diagnosis Supraventricular tachycardia Rightward axis Anterior infarct , age undetermined ST & T wave abnormality, consider inferolateral ischemia Abnormal ECG When compared with ECG of 15-JUN-2024 17:01, (unconfirmed) T wave inversion more evident in Lateral leads Hemoglobin A1c Collection Time: 06/15/24 5:18 PM Result Value Ref Range Hgb A1C 6.7 (H) 4.0 - 5.6 % Estimated Average Glucose 146 mg/dL ECG 12 lead Collection Time: 06/15/24 5:29 PM Result Value Ref Range Ventricular Rate EKG/Min 97 BPM Atrial Rate 97 BPM GA-Interval (MSEC) 138 ms QRS-Interval (MSEC) 78 ms QT-Interval (MSEC) 350 ms QTc 444 ms P [place] 85 degrees R [place] 88 degrees T [place] 10 degrees Diagnosis Normal sinus rhythm Possible Inferior infarct , age undetermined Abnormal ECG When compared with ECG of 15-JUN-2024 17:16, (unconfirmed) Vent. rate has decreased BY 60 BPM Borderline criteria for Inferior infarct are now Present ST no longer elevated in Inferior leads T wave inversion no longer evident in Anterior leads POCT glucose Collection Time: 06/15/24 10:31 PM Result Value Ref Range Glucose, POC 145 70 - 199 mg/dL Magnesium Collection Time: 06/16/24 3:37 AM Result Value Ref Range Magnesium 1.5 1.4 - 2.5 mg/dL Phosphorus Collection Time: 06/16/24 3:37 AM Result Value Ref Range Phosphorus, pl 2.5 2.3 - 4.5 mg/dL Basic metabolic panel Collection Time: 06/16/24 3:37 AM Result Value Ref Range Sodium 137 135 - 145 mmol/L Potassium, pl 4.2 3.3 - 4.9 mmol/L Chloride 101 97 - 110 mmol/L CO2 28 22 - 32 mmol/L Anion gap 8 2 - 15 mmol/L BUN 17 6 - 25 mg/dL Creatinine 0.97 0.80 - 1.30 mg/dL Glucose 90 70 - 199 mg/dL Calcium 8.8 8.5 - 10.3 mg/dL CBC without differential Collection Time: 06/16/24 3:37 AM Result Value Ref Range WBC 10.8 (H) 3.8 - 9.9 K/cumm Hgb 10.2 (L) 13.0 - 17.5 g/dL Hct 31.3 (L) 38.9 - 50.3 % Plt 435 (H) 150 - 400 K/cumm MPV 10.3 9.1 - 12.3 fL RBC 3.06 (L) 4.30 - 5.80 M/cumm MCV 102.3 (H) 81.3 - 96.4 fL MCH 33.3 27.1 - 33.3 pg MCHC 32.6 32.3 - 35.7 g/dL RDW CV 15.2 (H) 11.1 - 14.9 % RDW SD 56.7 (H) 35.7 - 48.1 fL NRBC abs 0.00 0.00 - 0.01 K/cumm Manual Differential Collection Time: 06/16/24 3:37 AM Result Value Ref Range Differential Manual Cells Counted 115 Neutrophil abs 6.5 1.5 - 6.5 K/cumm Imm gran abs 0.0 0.0 - 0.1 K/cumm Lymphocyte abs 3.1 0.8 - 3.3 K/cumm Monocyte abs 0.9 (H) 0.2 - 0.8 K/cumm Eosinophil abs 0.3 0.0 - 0.5 K/cumm Neutrophil pct 60.0 % Lymphocyte pct 28.7 % Monocyte pct 8.7 % Eosinophil pct 2.6 % RBC morphology Present (A) Anisocytosis Moderate (A) Macrocytes 8-15/HPF (A) Platelet estimate Adequate eGFR Collection Time: 06/16/24 3:37 AM Result Value Ref Range eGFR >90 >=60 mL/min/1.73 m2 Aerobic culture and gram stain Bronchoalveolar lavage Bronchial Collection Time: 06/16/24 9:24 AM Specimen: Bronchial; Bronchoalveolar lavage Result Value Ref Range Direct Specimen Exam Stain: Cytospin Gram stain shows: Rare polymorphonuclear leukocytes seen. No squamous epithelial cells seen. No organisms seen. Cell count w/rflx diff, body fluid Collection Time: 06/16/24 9:24 AM Result Value Ref Range Specimen type, fld Bronchial Body site, fld Bronch Lavage Color, fld Straw Clarity, fld Clear Clear Nucleated cells, fld 71 /cumm RBC, fld 0 /cumm Aerobic culture and gram stain Bronchial washing Bronchial Collection Time: 06/16/24 9:24 AM Specimen: Bronchial washing Result Value Ref Range Direct Specimen Exam Stain: Cytospin Gram stain shows: Moderate polymorphonuclear leukocytes seen. No squamous epithelial cells seen. Other cellular material present. Moderate mixed bacterial oscar seen on Gram stain. Cell Differential, Body Fluid Collection Time: 06/16/24 9:24 AM Result Value Ref Range Total cells diffed 100 cells Neutrophils, fld 89 % Lymphs, fld 6 % Eosinophils, fld 5 % POCT glucose Collection Time: 06/16/24 10:18 AM Result Value Ref Range Glucose, POC 82 70 - 199 mg/dL POCT glucose Collection Time: 06/16/24 2:07 PM Result Value Ref Range Glucose, POC 156 70 - 199 mg/dL I have reviewed independently radiology images from last 24 hours: Pertinent findings include: No new imaging Assessment/Plan * Right sided lung infiltrate Assessment & Plan Concerning for infectious pneumonia with radiographic appearance [...] pulmonary follow up with us after discharge Supplementary Attestation Today, I am treating the patient for cavitary PNA which is in severe exacerbation, progression, or experiencing treatment side effects as evidenced by Sx and imaging, as described in the note. Independently interpreted test(s) including Cx which shows NGTD. Discussed management of PNA with primary service. Cameron Russell MD * Assessment & Plan Note - Cameron Russell MD - 06/16/2024 2:31 PM CDT Associated Problem(s): Right sided lung infiltrate Concerning for infectious pneumonia with radiographic appearance [...] pulmonary follow up with us after discharge * Initial Assessments - Jazmine Reza MSW - 06/16/2024 2:15 PM CDT Social Work Assessment Clinical Dx: No primary diagnosis found. Past Medical History: Date of last inpatient admission: Previous admit date: 03/28/2024 Number of inpatient admissions in past year: 4 Reason for Current Hospitalization (Pt/Caregiver Stated): pulmonary infiltrate (06/16/241447) Patient Information: Information Obtained From: Patient Marital Status: Does Pt have Legal Guardian, Surrogate Decision Maker or Healthcare Agent? : Yes-patient stated Patient Stated Surrogate Name/Phone: Lamar Kaiser (Friend) [phone] (M) Employment Status: Disabled Payor Source: Medicare advantage Race: White/ Ethnicity: Non- Gender Identity: Male Service : [facility] (06/16/241447) Current Situation: Current Situation Living Arrangements: Other (Comment) (with caregiver/friend, Lamar) Type of Residence: Private residence Income: SSD/SSI Financial assistance: Other (comment) (Pt expressed concerns with Ameren bill and medical bills) Education Level : Unable to assess How do you Pay for Medication: Insurance Current Transportation: Family/friends (06/16/241447) Legal History: Legal History Legal Information : No legal issues (06/16/241447) Support Systems and Spirituality: Support Systems and Spirituality Support System: Friends/neighbors Friends/Neighbors Name/Contact Information: Lamar Kaiser (Friend) [phone] (M) Participation from Patient's Support System: Patient's friend and caregiver appears actively involved in patient's care Support Contact Name/Number: Above Do you have a Latter Day Preference or Affiliation?: Yes Preference/Affiliation : Cheondoism Are there any Latter Day Practices that are important to maintain while admitted?: No Do you have Cultural Factors that are important to you?: No History of physical abuse? : Unable to answer History of physically abusing others? : Unable to answer History of sexual abuse?: Unable to answer History of sexually abusing others? : Unable to answer History of Mental/Emotional Abuse? : Unable to answer (06/16/24 1448) Strengths, Assets, Liabilities and Stressors: Strengths, Assets, Liabilities, and Stressors Strengths (Must Choose Two): Interpersonal relationships and supports,i.e., family, friends, peers,Access to housing/residential stability Patient Assets: Disability income, Home, Insured, Transportation, Supportive friends Does Pt have access to Employee Assistance Program: No Patient Barriers : Poor physical health Current Stressors: Chronic illness (06/16/24 1448) SDOH Transportation Needs: No Transportation Needs (06/16/2024) PRAPARE - Transportation Lack of Transportation (Medical): No Lack of Transportation (Non-Medical): No Financial Resource Strain: Low Risk (06/16/2024) Overall Financial Resource Strain (CARDIA) Difficulty of Paying Living Expenses: Not very hard Housing Stability: Low Risk (06/16/2024) Housing Stability Vital Sign Unable to Pay for Housing in the Last Year: No Number of Times Moved in the Last Year: 0 Homeless in the Last Year: No Social Connections: Moderately Isolated (06/16/2024) Social Connection and Isolation Panel [NHANES] Frequency of Communication with Friends and Family: Twice a week Frequency of Social Gatherings with Friends and Family: Once a week Attends Latter Day Services: Never Active Member of Clubs or Organizations: Yes Attends Club or Organization Meetings: Never Marital Status: Food Insecurity: No Food Insecurity (06/16/2024) Hunger Vital Sign Worried About Running Out of Food in the Last Year: Never true Ran Out of Food in the Last Year: Never true Tobacco Use: High Risk (06/15/2024) Patient History Smoking Tobacco Use: Some Days Smokeless Tobacco Use: Never Passive Exposure: Not on file Alcohol Use: Not At Risk (01/12/2022) AUDIT-C Frequency of Alcohol Consumption: Never Average Number of Drinks: Not on file Frequency of Binge Drinking: Not on file PHQ Screening Over the last 2 weeks, [...] points, staff should administer the PHQ-9): 0 Current/Former Smokers - Passive Exposure Questions Responses Current/Former Smoker - passive exposure (e.g., household member smoking)? Yes E-Cigarette/Vaping Questions Responses E-cigarette/Vaping Use Never User Substance Abuse, Mental Health, and Trauma History: Chemical Dependency, Mental Health & Trauma History Chemical Dependency: None reported Mental Health: None reported (06/16/24 1448) Risk to Self and Others: Risk to Self and Others Violence risk to self in past 6 months? : No Self Harm/Suicidal Ideation Plan: No Previous Self Harm/Suicidal Attempts: No Violence risk to others in past 6 months? : No Any lifetime risk of violence to others? : No Current Plans to Harm Another: No (06/16/24 1448) Impressions and Recommendations: Predictive Model Details 33% (High Risk) Factor Value Calculated 06/16/2024 12:02 37% Number of active inpatient medication orders 77 Risk of Unplanned Readmission Model 7% Diagnosis of cancer present 7% Number of hospitalizations in last year 2 7% ECG/EKG order present in last 6 months 6% Charlson Comorbidity Index 7 5% Encounter of ten days or longer in last year present 5% Diagnosis of electrolyte disorder present 5% Imaging order present in last 6 months 4% Latest hemoglobin low (10.2 g/dL) 4% Phosphorous result present 4% Number of ED visits in last six months 1 3% Age 58 3% Active anticoagulant inpatient medication order present 1% Future appointment scheduled 1% Current length of stay 1.043 days 1% Active ulcer inpatient medication order present Impressions and Recommendations: Patient is a 58yr old male here for pulmonary infiltrate. Social Work assessment completed due to high readmission risk (33%) and number of inpatient admissions (4) within the year. Social Work met with patient at bedside. Patient amenable to assessment andpresented as A&Ox3 with appropriate affect. Patient had appropriate eye contact and was good historian. Social Work informed patient of chart review and asked patient to confirm information. Social Work discussed SDOH (finances, food, transportation, housing, and social supports). Patient endorsed concerns with paying for Ameren bill and medical bills. SW submitted several referrals for utility bill payment assistance through [employer] with patient's consent. [facility] and [employer] financial aid administrator information in patient's AVS. Patient lives with caregiver/friend, Lamar Kaiser, who he reports is a good source of support to him. Patient denied MH or substance use concerns. Patient does not have an advanced directive on file but verbally nominated Lamar Kaiser (Friend) [phone] (M) as surrogate decision maker in the event that he becomes unable to make medical decisions for himself. Patient interested in completing POA paperwork. Paperwork explained and provided at bedside. Patient stated they have no additional concerns or needs for Social Work to address. Social Work encouraged patient to inform nurse if patient has any new needs identified. Case Management to follow for discharge planning needs. BRIGID Cruz * Plan of Care - Dora Bryant RN - 06/16/2024 12:38 PM CDT Problem: Discharge Planning Goal: Understanding discharge needs [...] risk of falls will improve Outcome: Progressing Problem: Cardiovascular Goal: Maintains optimal cardiac output and hemodynamic stability Outcome: Progressing Goals: Pt would like to have decreased O2 demands. Summary: Pt A&OX4. Denies n/v or worsening SOB. Has a more wet cough s/p bronch today. Up with assist x1. O2 on at 4L/NC and tele intact with O2 sensor. 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 Plan Includes: Plan to discharge home with caregiver Lamar [phone]. Shower chair at home. Caregiver assists with dressing, meal prep, patient bathes, feeds, and transfers self but unsteady gait. [facility] Patient oxygen 3-5L via [place] continuous ; fax: [phone] (specify [facility] patient). Requests new walk test before discharge. Requesting 2 wheeled walker Primary Source of Transportation: Does the patient need discharge transport arranged?: No (06/16/24 1020) Health Insurance Coverage: [facility] medicare Prescription Coverage: yes Pharmacy: [facility] mobile pharmacy for discharge medications [id number] - [place], [place] - [address] AT [address] [place] [address] Primary Care Provider: Kirt Lindsay, - verified Prior to Admission: Functional Status: Moderate assist with ADLs Primary Caregiver: Private caregiver (Caregiver Lamar Kaiser [phone]) Support System: None Home Care Services: No Durable Medical Equipment: Shower chair, Oxygen Oxygen Detail: [facility] 3-5L via [place] continuous DME Name and Contact Number: [place] office: [phone]; fax: [phone] (specify [place] patient) Living Arrangements: Other (Comment) (caregiver Lamar) Type of Residence: Private residence Steps in home?: Yes, Outside of home Number of steps outside: 5 steps Medication management: Independent (06/16/24 1020) Potential discharge needs include: Home Health: None (06/16/24 1020) OP Services: oncology Dialysis: n/a Behavioral Health Services: Behavioral Health Services: No (06/16/24 1020) Anticipated Level of Care: Anticipated discharge level of care: Private residence Pt/Family agrees with Anticipated Level of Care: Yes (06/16/24 1020) Patient expects to be Discharged to: Private residence, (06/16/24 1020) Additional Information: CM spoke with patient's caregiver Lamar via telephone [phone] to complete initial assessment. Address and phone number verified with face sheet. Patient lives at home with caregiver Lamar and is moderate assistance with activities of daily living. No home health. Shower chair for durable medical equipment. Caregiver assists with dressing, meal prep, patient bathes, feeds, and transfers self but unsteady gait. [facility] Patient oxygen 3-5L via [place] continuous ; fax: [phone] (specify [place] patient). Requesting 2 wheeled walker. Remarketing Manager role explained. Patient's Identified Problem/Goal Problem: Ensure acute medical [...] Collaboration with Patient, Provider, Direct Care Nurse, Membership Coordinator, and other members of theHealth Care Team to assure needed interventions completed. 2. Return patient to optimal level of self-care post discharge. 3. Remarketing Manager will follow for Discharge Planning - interventions as needed 4. Anticipated level of care at discharge 5. Planned Discharge Disposition Marry Abreu RN * Pre-Sedation Documentation - Cameron Russell MD - 06/16/2024 8:41 AM CDT Pre-Procedure/Pre-Sedation Assessment Planned Procedure: Bronchoscopy with lavage Reason for Procedure: cavitary pneumonia The patient has been NPO for the appropriate amount of time. Past medical history per consultation/office notes. Prescribed use of blood thinner: Yes Prescribed use of antiplatelet agent: No History of thrombocytopenia or bleeding disorder: No Allergies: Allergies Allergen Reactions Adhesive Redness burn Physical Exam: General: No acute distress Airway Mallampati Score: 2 Cardiovascular: RRR Pulmonary/Chest: coarse Labs: Lab Results Component Value Date WBC 10.8 (H) 06/16/2024 HGB 10.2 (L) 06/16/2024 HCT 31.3 (L) 06/16/2024 MCV 102.3 (H) 06/16/2024 LABPLAT 435 (H) 06/16/2024 Lab Results Component Value Date CREATININE 0.97 06/16/2024 Lab Results Component Value Date INR 1.10 06/15/2024 No results found for: PTT ASA SCORE: 3 SEDATION/ANESTHESIA PLAN: Moderate sedation Informed Consent: Benefits, risks, alternatives discussed; patient/associate financial representative accepts/agrees tosedation/anesthesia plan and to the procedure. Patient has tolerated sedation in the past without complication. Post Procedure Monitoring Plan: Floor * Plan of Care - Millicent Belle RN - 06/15/2024 11:19 PM CDT Problem: Discharge Planning Goal: Understanding discharge needs [...] from injury from falls Outcome: Progressing Problem: Respiratory Goal: Ability to maintain a clear airway will improve Outcome: Progressing Goal: Mechanical Ventilation will be safely managed Outcome: Progressing Problem: Cardiovascular Goal: Maintains optimal cardiac output and hemodynamic stability Outcome: Progressing Goal: Absence of cardiac dysrhythmias or at baseline Outcome: Progressing Goal: Cardiovascular status will improve Outcome: Progressing Problem: Skin/Tissue Integrity Goal: Skin integrity remains intact Outcome: Progressing Goal: Incisions, wounds, or drain sites healing without S/S of infection Outcome: Progressing Goal: Oral mucous membranes remain intact Description: Outcome: Progressing Problem: Musculoskeletal Goal: Return mobility to safest level of function Outcome: Progressing Goal: Maintain proper alignment of affected body part Outcome: Progressing Goal: Return ADL status to a safe level of function Outcome: Progressing Goal: Ability to perform activities at highest level will improve Outcome: Progressing Goal: Mobility, ROM and muscle strength will improve Outcome: Progressing Goals: Clinical Goals for the Shift: vss, o2 support, meds, labs, NPO at midnight Summary: pt progressing toward goals * Assessment & Plan Note - Anthony Grace MD - 06/15/2024 1:01 PM CDT Associated Problem(s): Peripheral neuropathy Continue gabapentin * Assessment & Plan Note - Ramos Mercado MD - 06/15/2024 1:00 PM CDTAssociated Problem(s): DVT (deep venous thrombosis) ([facility]/HCC) ([facility]) DVT lower ext 2012, DVT IJ 2017, PE 02/02/2013. He remains on Xarelto 20 mg a day (Last dose 06/14). On hold for bronch. Distant hx of DVT/PE. Continue to hold for now till no procedure anticipated * Assessment & Plan Note - Ramos Mercado MD - 06/15/2024 12:59 PM CDTAssociated Problem(s): CHF (congestive heart failure) (CMS/HCC) (HCC) TTE: 03/28/24: EF: 50-55%, low normal Systolic function, small pericardial effusion On examination, euvolemic Nt-PROBNP 1012 * Assessment & Plan Note - Ramos Mercado MD - 06/15/2024 12:58 PM CDTAssociated Problem(s): Type 2 diabetes mellitus (HCC) At home he uses humalog sliding scale only Plan: A1c checked 6.7 Start ISS and adjust according to need * Assessment & Plan Note - Anthony Grace MD - 06/15/2024 12:52 PM CDT Associated Problem(s): AML s/p Allo SCT in [address] Bauman Last seen in clinic on 06/09/2023 S/pO Allo sibling SCT in 2008 AML diagnosed in 2008 s/p 7+3 and HiDAC consolidation x3 followed by Decitabine maintenance on the CALGB 82906 protocol. 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 voriconazole 200 b.i.d * Assessment & Plan Note - Anthony Grace MD - 06/15/2024 12:51 PM CDT Associated Problem(s): Zqckj-fllvbs-pdoz disease (HCC) Continue cellcept 100mg BID and tacrolimus 0,5 mg every other day. * Assessment & Plan Note - Anthony Grace MD - 06/15/2024 12:50 PM CDT Associated Problem(s): Acute on chronic hypoxic respiratory failure (HCC) Likely in the setting of COPD, H/O PE and now worsening lung disease. Uses 3l of oxygen at rest and uotp 5L on exertion Continue o2 supplementation with goal O2: >90% * Assessment & Plan Note - Anthony Grace MD - 06/15/2024 12:48 PM CDT Associated Problem(s): COPD with Pulmonary emphysema (HCC) H/O COPD with emphysema, continues to smoke. Continue trelegy ellipta or alternative Duo nebs QID Respiratory therapy protocol * Assessment & Plan Note - Ramos Mercado MD - 06/15/2024 12:47 PM CDTAssociated Problem(s): Right sided lung infiltrate Persistent/worsening lung infiltrate since 04/10,a after being treated for multifocal pneumonia withunderlying h/o AlloSCT and GVHD on immunosuppressants. Differentials [...] broad-spectrum antibiotics with vanco and Zosyn 06/16 * Teleconsult - Sidra Mcghee RN - 06/14/2024 10:28 AM CDT Called pt to follow up about admission reservation. Voice message left for him to call back to Patient Placement. * Teleconsu - Sidra Mcghee RN - 06/13/2024 1:51 PM CDT Called pt regarding admission reservation. Voice message left to inform Bri we have a bed for his admission. Number left for him to return call. documented in this encounter Plan of Treatment Pending Results Name Type Priority Associated Diagnoses Date /Time Pro B-type natriuretic peptide Lab STAT 06/15/2024 1:24 PM CDT Scheduled Orders Name Type Priority Associated Diagnoses Orde r Schedule Pro B-type natriuretic peptide Lab STAT Once for 1 Occur rences starting 06/15/2024 until 06/15/2024 documented as of this encounter Procedures Procedure Name Priority Date/Time Associated Diagnosis Comments POCT GLUCOSE DEVICE Routine 06/24/2024 6 :01 PM CDT POCT GLUCOSE DEVICE Routine 06/24/2024 12:58 PM CDT POCT GLUCOSE DEVICE Routine 06/24/2024 7 :42 AM CDT BMT CBC Routine 06/24/2024 3:56 AM CDT EGFR Routine 06/24/2024 3:56 AM CDT MANUAL DIFFERENTIAL Routine 06/24/2024 3 :56 AM CDT CBC WITHOUT DIFFERENTIAL Routine 06/24/2024 3:56 AM CDT PHOSPHORUS Routine 06/24/2024 3:56 AM CDT MAGNESIUM Routine 06/24/2024 3:56 AM CDT BASIC METABOLIC PANEL Routine 06/24/2024 3:56 AM CDT POCT GLUCOSE DEVICE Routine 06/23/2024 8 :22 PM CDT PEP THERAPY Routine 06/23/2024 6:00 PM CDT POCT GLUCOSE DEVICE Routine 06/23/2024 4 :43 PM CDT PEP THERAPY Routine 06/23/2024 1:00 PM CDT POCT GLUCOSE DEVICE Routine 06/23/2024 11:26 AM CDT POCT GLUCOSE DEVICE Routine 06/23/2024 8 :03 AM CDT PEP THERAPY Routine 06/23/2024 8:00 AM CDT BMT CBC Routine 06/23/2024 3:34 AM CDT EGFR Routine 06/23/2024 3:34 AM CDT MANUAL DIFFERENTIAL Routine 06/23/2024 3 :34 AM CDT CBC WITHOUT DIFFERENTIAL Routine 06/23/2024 3:34 AM CDT PHOSPHORUS Routine 06/23/2024 3:34 AM CDT MAGNESIUM Routine 06/23/2024 3:34 AM CDT BASIC METABOLIC PANEL Routine 06/23/2024 3:34 AM CDT POCT GLUCOSE DEVICE Routine 06/22/2024 8 :43 PM CDT PEP THERAPY Routine 06/22/2024 6:00 PM CDT POCT GLUCOSE DEVICE Routine 06/22/2024 5 :15 PM CDT PEP THERAPY Routine 06/22/2024 1:00 PM CDT POCT GLUCOSE DEVICE Routine 06/22/2024 11:35 AM CDT SIX MINUTE WALK Routine 06/22/2024 10:14 AM CDT PEP THERAPY Routine 06/22/2024 8:00 AM CDT POCT GLUCOSE DEVICE Routine 06/22/2024 7 :40 AM CDT BMT CBC Routine 06/22/2024 4:39 AM CDT EGFR Routine 06/22/2024 4:39 AM CDT MANUAL DIFFERENTIAL Routine 06/22/2024 4 :39 AM CDT APTT Routine 06/22/2024 4:39 AM CDT PROTIME-INR Routine 06/22/2024 4:39 AM CDT CBC WITHOUT DIFFERENTIAL Routine 06/22/2024 4:39 AM CDT TYPE AND SCREEN Timed 06/22/2024 4:39 AM CDT URIC ACID Routine 06/22/2024 4:39 AM CDT PHOSPHORUS Routine 06/22/2024 4:39 AM CDT MAGNESIUM Routine 06/22/2024 4:39 AM CDT LACTATE DEHYDROGENASE Routine 06/22/2024 4:39 AM CDT COMPREHENSIVE METABOLIC PANEL Routine 06/22/2024 4:39 AM CDT POCT GLUCOSE DEVICE Routine 06/21/2024 9 :37 PM CDT POCT GLUCOSE DEVICE Routine 06/21/2024 7 :46 PM CDT PEP THERAPY Routine 06/21/2024 6:00 PM CDT POCT GLUCOSE DEVICE Routine 06/21/2024 1 :53 PM CDT PEP THERAPY Routine 06/21/2024 1:00 PM CDT PEP THERAPY Routine 06/21/2024 8:00 AM CDT POCT GLUCOSE DEVICE Routine 06/21/2024 7 :25 AM CDT BMT CBC Routine 06/21/2024 2:32 AM CDT EGFR Routine 06/21/2024 2:32 AM CDT MANUAL DIFFERENTIAL Routine 06/21/2024 2 :32 AM CDT CBC WITHOUT DIFFERENTIAL Routine 06/21/2024 2:32 AM CDT PHOSPHORUS Routine 06/21/2024 2:32 AM CDT MAGNESIUM Routine 06/21/2024 2:32 AM CDT BASIC METABOLIC PANEL Routine 06/21/2024 2:32 AM CDT POCT GLUCOSE DEVICE Routine 06/20/2024 9 :16 PM CDT POCT GLUCOSE DEVICE Routine 06/20/2024 9 :09 PM CDT POCT GLUCOSE DEVICE Routine 06/20/2024 5 :12 PM CDT POCT GLUCOSE DEVICE Routine 06/20/2024 1 :01 PM CDT POCT GLUCOSE DEVICE Routine 06/20/2024 7 :36 AM CDT EGFR STAT 06/20/2024 3:59 AM CDT PHOSPHORUS STAT 06/20/2024 3:59 AM CDT MAGNESIUM STAT 06/20/2024 3:59 AM CDT COMPREHENSIVE METABOLIC PANEL STAT 06/20/2024 3:59 AM CDT BMT CBC Routine 06/20/2024 3:02 AM CDT EGFR Routine 06/20/2024 3:02 AM CDT MANUAL DIFFERENTIAL Routine 06/20/2024 3 :02 AM CDT CBC WITHOUT DIFFERENTIAL Routine 06/20/2024 3:02 AM CDT PHOSPHORUS Routine 06/20/2024 3:02 AM CDT MAGNESIUM Routine 06/20/2024 3:02 AM CDT BASIC METABOLIC PANEL Routine 06/20/2024 3:02 AM CDT C. DIFFICILE TESTING Routine 06/19/2024 10:00 PM CDT INFECTION PREVENTION VRE CULTURE Routine 06/19/2024 10:00 PM CDT POCT GLUCOSE DEVICE Routine 06/19/2024 8 :27 PM CDT POCT GLUCOSE DEVICE Routine 06/19/2024 5 :41 PM CDT POCT GLUCOSE DEVICE Routine 06/19/2024 12:20 PM CDT HISTOPLASMA ANTIGEN Routine 06/19/2024 10:04 AM CDT POCT GLUCOSE DEVICE Routine 06/19/2024 8 :18 AM CDT BMT CBC Routine 06/19/2024 4:41 AM CDT EGFR Routine 06/19/2024 4:41 AM CDT MANUAL DIFFERENTIAL Routine 06/19/2024 4 :41 AM CDT CBC WITHOUT DIFFERENTIAL Routine 06/19/2024 4:41 AM CDT PHOSPHORUS Routine 06/19/2024 4:41 AM CDT MAGNESIUM Routine 06/19/2024 4:41 AM CDT BASIC METABOLIC PANEL Routine 06/19/2024 4:41 AM CDT POCT GLUCOSE DEVICE Routine 06/18/2024 8 :58 PM CDT PEP THERAPY Routine 06/18/2024 6:00 PM CDT POCT GLUCOSE DEVICE Routine 06/18/2024 5 :57 PM CDT PEP THERAPY Routine 06/18/2024 1:00 PM CDT PEP THERAPY Routine 06/18/2024 11:47 AM CDT PEP THERAPY Routine 06/18/2024 11:47 AM CDT PEP THERAPY Routine 06/18/2024 11:47 AM CDT POCT GLUCOSE DEVICE Routine 06/18/2024 11:21 AM CDT POCT GLUCOSE DEVICE Routine 06/18/2024 7 :10 AM CDT POCT GLUCOSE DEVICE Routine 06/18/2024 5 :09 AM CDT POCT GLUCOSE DEVICE Routine 06/18/2024 3 :57 AM CDT BMT CBC Routine 06/18/2024 3:56 AM CDT EGFR Routine 06/18/2024 3:56 AM CDT MANUAL DIFFERENTIAL Routine 06/18/2024 3 :56 AM CDT CBC WITHOUT DIFFERENTIAL Routine 06/18/2024 3:56 AM CDT TYPE AND SCREEN Timed 06/18/2024 3:56 AM CDT URIC ACID Routine 06/18/2024 3:56 AM CDT PHOSPHORUS Routine 06/18/2024 3:56 AM CDT MAGNESIUM Routine 06/18/2024 3:56 AM CDT LACTATE DEHYDROGENASE Routine 06/18/2024 3:56 AM CDT COMPREHENSIVE METABOLIC PANEL Routine 06/18/2024 3:56 AM CDT POCT GLUCOSE DEVICE Routine 06/18/2024 12:04 AM CDT POCT GLUCOSE DEVICE Routine 06/17/2024 11:15 PM CDT VANCOMYCIN LEVEL TROUGH Timed 06/17/20 11:15 PM CDT POCT GLUCOSE DEVICE Routine 06/17/2024 10:06 PM CDT EGFR STAT 06/17/2024 9:20 PM CDT CRITICAL RESULT CALLBACK CHEMISTRY STAT 06/17/2024 9:20 PM CDT BASIC METABOLIC PANEL STAT 06/17/2024 9:20 PM CDT POCT GLUCOSE DEVICE Routine 06/17/2024 8 :51 PM CDT POCT GLUCOSE DEVICE Routine 06/17/2024 8 :49 PM CDT POCT GLUCOSE DEVICE Routine 06/17/2024 4 :00 PM CDT POCT GLUCOSE DEVICE Routine 06/17/2024 11:33 AM CDT TACROLIMUS LEVEL, TROUGH Timed 06/17/2024 8:30 AM CDT POCT GLUCOSE DEVICE Routine 06/17/2024 7 :10 AM CDT BMT CBC Routine 06/17/2024 4:05 AM CDT EGFR Routine 06/17/2024 4:05 AM CDT MANUAL DIFFERENTIAL Routine 06/17/2024 4 :05 AM CDT CBC WITHOUT DIFFERENTIAL Routine 06/17/2024 4:05 AM CDT PHOSPHORUS Routine 06/17/2024 4:05 AM CDT MAGNESIUM Routine 06/17/2024 4:05 AM CDT BASIC METABOLIC PANEL Routine 06/17/2024 4:05 AM CDT POCT GLUCOSE DEVICE Routine 06/17/2024 3 :36 AM CDT POCT GLUCOSE DEVICE Routine 06/16/2024 11:23 PM CDT POCT GLUCOSE DEVICE Routine 06/16/2024 7 :17 PM CDT POCT GLUCOSE DEVICE Routine 06/16/2024 5 :46 PM CDT EGFR STAT 06/16/2024 4:43 PM CDT BASIC METABOLIC PANEL STAT 06/16/2024 4:43 PM CDT POCT GLUCOSE DEVICE Routine 06/16/2024 4 :42 PM CDT FENTANYL CONFIRMATION, MS URINE Routine 06/16/2024 4:03 PM CDT DRUGS OF ABUSE SCREEN, URINE WITH REFLEX CONFIRMATION Routine 06/16/2024 4:03 PM CDT URINALYSIS AND REFLEX TO MICROSCOPIC AND CULTURE Routine 06/16/2024 4:03 PM CDT CBC WITHOUT DIFFERENTIAL STAT 06/16/2024 3:06 PM CDT TROPONIN I HIGH-SENSITIVITY STAT 06/16/2024 3:05 PM CDT LACTATE STAT 06/16/2024 3:05 PM CDT EGFR STAT 06/16/2024 3:05 PM CDT CRITICAL RESULT CALLBACK CHEMISTRY STAT 06/16/2024 3:05 PM CDT PRO B-TYPE NATRIURETIC PEPTIDE STAT 06/16/2024 3:05 PM CDT BLOOD CULTURE Routine 06/16/2024 3:05 PM CDT BLOOD CULTURE Routine 06/16/2024 3:05 PM CDT PHOSPHORUS STAT 06/16/2024 3:05 PM CDT MAGNESIUM STAT 06/16/2024 3:05 PM CDT COMPREHENSIVE METABOLIC PANEL STAT 06/16/2024 3:05 PM CDT POC BLOOD GAS AND CHEMISTRIES, ARTERIAL Routine 06/16/2024 2:45 PM CDT POCT GLUCOSE DEVICE Routine 06/16/2024 2 :34 PM CDT XR CHEST 1 VIEW Critical/Life-T hreatening 06/16/2024 2:11 PM CDT POCT GLUCOSE DEVICE Routine 06/16/2024 2 :07 PM CDT POCT GLUCOSE DEVICE Routine 06/16/2024 10:18 AM CDT CELL DIFFERENTIAL, BODY FLUID Routine 06/16/2024 9:24 AM CDT CELL COUNT W/REFLEX DIFFERENTIAL, BODY FLUID Routine 06/16/2024 9:24 AM CDT AEROBIC CULTURE AND GRAM STAIN Routine 06/16/2024 9:24 AM CDT AEROBIC CULTURE AND GRAM STAIN Routine 06/16/2024 9:24 AM CDT MYCOLOGY (FUNGAL) CULTURE Routine 06/16/2024 9:24 AM CDT MYCOLOGY (FUNGAL) CULTURE Routine 06/16/2024 9:24 AM CDT MYCOBACTERIUM TUBERCULOSIS PCR Routine 06/16/2024 9:24 AM CDT MYCOBACTERIUM TUBERCULOSIS PCR Routine 06/16/2024 9:24 AM CDT MYCOBACTERIUM TUBERCULOSIS PCR Routine 06/16/2024 9:24 AM CDT MYCOBACTERIUM TUBERCULOSIS PCR Routine 06/16/2024 9:24 AM CDT MYCOBACTERIOLOGY AFB CULTURE AND ACID-FAST STAIN Routine 06/16/2024 9:24 AM CDT MYCOBACTERIOLOGY AFB CULTURE AND ACID-FAST STAIN Routine 06/16/2024 9:24 AM CDT PNEUMOCYSTIS DFA Routine 06/16/2024 9:24 AM CDT CYTOLOGY Routine 06/16/2024 9:12 AM CDT BRONCHOSCOPY Routine 06/16/2024 8:32 AM CDT BMT CBC Routine 06/16/2024 3:37 AM CDT EGFR Routine 06/16/2024 3:37 AM CDT MANUAL DIFFERENTIAL Routine 06/16/2024 3 :37 AM CDT CBC WITHOUT DIFFERENTIAL Routine 06/16/2024 3:37 AM CDT PHOSPHORUS Routine 06/16/2024 3:37 AM CDT MAGNESIUM Routine 06/16/2024 3:37 AM CDT BASIC METABOLIC PANEL Routine 06/16/2024 3:37 AM CDT POCT GLUCOSE DEVICE Routine 06/15/2024 10:31 PM CDT ECG 12-LEAD STAT 06/15/2024 5:29 PM CDT HISTOPLASMA ANTIBODY Routine 06/15/2024 5:18 PM CDT BLASTOMYCES ANTIBODY, EIA, S Routine 06/15/2024 5:18 PM CDT CRYPTOCOCCAL ANTIGEN, SERUM Routine 06/15/2024 5:18 PM CDT ASPERGILLUS GALACTOMANNAN ANTIGEN Routine 06/15/2024 5:18 PM CDT INFECTION PREVENTION MRSA ONLY (STAPHYLOCOCCUS AUREUS) CULTURE Routine 06/15/2024 5:18 PM CDT HEMOGLOBIN A1C Routine 06/15/2024 5:18 PM CDT ECG 12-LEAD STAT 06/15/2024 5:16 PM CDT ECG 12-LEAD STAT 06/15/2024 5:01 PM CDT BMT CBC STAT 06/15/2024 1:24 PM CDT EGFR STAT 06/15/2024 1:24 PM CDT PRO B-TYPE NATRIURETIC PEPTIDE STAT 06/15/2024 1:24 PM CDT RESPIRATORY PATHOGEN PANEL Routine 06/15/2024 1:24 PM CDT MANUAL DIFFERENTIAL STAT 06/15/2024 1 :24 PM CDT APTT STAT 06/15/2024 1:24 PM CDT PROTIME-INR STAT 06/15/2024 1:24 PM CDT FIBRINOGEN STAT 06/15/2024 1:24 PM CDT CBC WITHOUT DIFFERENTIAL STAT 06/15/2024 1:24 PM CDT TYPE AND SCREEN STAT 06/15/2024 1:24 PM CDT URIC ACID STAT 06/15/2024 1:24 PM CDT PHOSPHORUS STAT 06/15/2024 1:24 PM CDT MAGNESIUM STAT 06/15/2024 1:24 PM CDT LACTATE DEHYDROGENASE STAT 06/15/2024 1:24 PM CDT COMPREHENSIVE METABOLIC PANEL STAT 06/15/2024 1:24 PM CDT XR CHEST 1 VIEW ED Urgent/IP Urgent 06/15/2024 12:02 PM CDT ECG 12-LEAD STAT 06/15/2024 10:29 AM CDT documented in this encounter Results * POCT glucose (06/24/2024 6:01 PM CDT) Glucose, POC 139 70 - 199 mg/dL Blood 06/24/2024 6:01 PM CDT 06/24/2024 6:01 PM CDT us Marcela Silva MD LAB POCT ORDERABLES - DEVIC E Final Result [facility] [place] [address] * POCT glucose (06/24/2024 12:58 PM CDT) Glucose, POC 191 70 - 199 mg/dL Blood 06/24/2024 12:5 8 PM CDT 06/24/2024 12:58 PM CDT us Marcela Silva MD LAB POCT ORDERABLES - DEVIC E Final Result Performing Organization Address [facility] de Phone Number [facility] [place] [address] * POCT glucose (06/24/2024 7:42 AM CDT) [facility] Glucose, POC 143 70 - 199 mg/dL Blood 06/24/2024 7:42 AM CDT 06/24/2024 7:42 AM CDT us Marcela Silva MD LAB POCT ORDERABLES - DEVIC E Final Result Performing Organization Address [facility] de Phone Number [facility] [place] [address] * eGFR (06/24/2024 3:56 AM CDT) [facility] eGFR >90 >=60 mL/min/1. 73 m2 [...] interpretive data was last reviewed 2021. Blood 06/24/2024 3:56 AM CDT 06/24/2024 4:15 AM CDT us Parviz Hannon MD PhD LAB BLOOD ORDERABLES Final Result [facility] Department [place] [address] * (ABNORMAL) Manual Differential (06/24/2024 3:56 AM CDT) Differential Manual Cells Counted 116 [facility] Neutrophil abs 8.6(H) 1.5 - 6.5 K/cumm [facility] Imm gran abs 0.0 0.0 - 0.1 K/cumm [facility] Lymphocyte abs 4.3(H) 0.8 - 3.3 K/cumm [facility] Monocyte abs 2.3(H) 0.2 - 0.8 K/cumm [facility] Eosinophil abs 0.4 0.0 - 0.5 K/cumm [facility] Neutrophil pct 55.1 % [facility] Comment: Interpretive Data Percent cell count reference ranges are not reported, since discordance with absolute values may lead to misinterpretation of CBC data. Current Interpretive Data was last revised on 2018. Lymphocyte pct 27.6 % [facility] Comment: Interpretive Data Percent cell count reference ranges are not reported, since discordance with absolute values may lead to misinterpretation of CBC data. Current Interpretive Data was last revised on 2018. Monocyte pct 14.7 % [facility] Comment: Interpretive Data Percent cell count reference ranges are not reported, since discordance with absolute values may lead to misinterpretation of CBC data. Current Interpretive Data was last revised on 2018. Eosinophil pct 2.6 % [facility] Comment: Interpretive Data Percent cell count reference ranges are not reported, since discordance with absolute values may lead to misinterpretation of CBC data. Current Interpretive Data was last revised on 2018. RBC morphology Present(A) [facility] Anisocytosis Marked(A) [facility] Macrocytes > 15/HPF(A) [facility] Platelet estimate Adequate [facility] Blood 06/24/2024 3:56 AM CDT 06/24/2024 4:15 AM CDT us Parviz Hannon MD PhD LAB BLOOD ORDERABLES Edited Result - Final [facility] Department [place] [address] * (ABNORMAL) CBC without differential (06/24/2024 3:56 AM CDT) WBC 15.7(H) 3.8 - 9.9 K/cumm Hgb 10.7(L) 13.0 - 17.5 g/dL [facility] Hct 32.8(L) 38.9 - 50.3 % [facility] Plt 395 150 - 400 K/cumm [facility] MPV 10.4 9.1 - 12.3 fL [facility] RBC 3.30(L) 4.30 - 5.80 M/cumm [facility] MCV 99.4(H) 81.3 - 96.4 fL [facility] MCH 32.4 27.1 - 33.3 pg [facility] MCHC 32.6 32.3 - 35.7 g/dL [facility] RDW CV 15.7(H) 11.1 - 14.9 % [facility] RDW SD 57.4(H) 35.7 - 48.1 fL [facility] NRBC abs 0.39(H) 0.00 - 0.01 K/cumm [facility] Blood 06/24/2024 3:56 AM CDT 06/24/2024 4:15 AM CDT Parviz Hannon MD PhD LAB BLOOD ORDERABLES Final Result [facility] [place] [address] * (ABNORMAL) Basic metabolic panel (06/24/2024 3:56 AM CDT) Sodium 140 135 - 145 mmol/L Potassium, pl 4.7 3.3 - 4.9 mmol/L [facility] Chloride 98 97 - 110 mmol/L [facility] CO2 34(H) 22 - 32 mmol/L [facility] Anion gap 8 2 - 15 mmol/L [facility] BUN 30(H) 6 - 25 mg/dL [facility] Creatinine 0.71(L) 0.80 - 1.30 mg/dL [facility] Glucose 119 70 - 199 mg/dL [facility] Comment: Interpretive Data Fasting glucose >/= 126 [...] 2022. Calcium 9.1 8.5 - 10.3 mg/dL [facility] Blood 06/24/2024 3:56 AM CDT 06/24/2024 4:15 AM CDT Narrative [facility] - 06/24/2024 4:45 AM CDT Daily except Saturday and . Morning draw. Parviz Hannon MD PhD LAB BLOOD ORDERABLES Final Result Performing Organization Address [facility] de Phone Number [facility] [place] [address] * Phosphorus (06/24/2024 3:56 AM CDT) Phosphorus, pl 2.8 2.3 - 4.5 mg/dL Blood 06/24/2024 3:56 AM CDT 06/24/2024 4:15 AM CDT Parviz Hannon MD PhD LAB BLOOD ORDERABLES Final Result Performing Organization Address [facility] de Phone Number [facility] [place] [address] * Magnesium (06/24/2024 3:56 AM CDT) Magnesium 1.8 1.4 - 2.5 mg/dL Blood 06/24/2024 3:56 AM CDT 06/24/2024 4:15 AM CDT Parviz Hannon MD PhD LAB BLOOD ORDERABLES Final Result Performing Organization Address [facility] de Phone Number [facility] [place] [address] * POCT glucose (06/23/2024 8:22 PM CDT) Glucose, POC 150 70 - 199 mg/dL Blood 06/23/2024 8:22 PM CDT 06/23/2024 8:22 PM CDT Marcela Silva MD LAB POCT ORDERABLES - DEVIC E Final Result Performing Organization Address [facility] Co de Phone Number [facility] [place] [address] * (ABNORMAL) POCT glucose (06/23/2024 4:43 PM CDT) Glucose, POC 274(H) 70 - 199 mg/dL Blood 06/23/2024 4:43 PM CDT 06/23/2024 4:43 PM CDT us Marcela Silva MD LAB POCT ORDERABLES - DEVIC E Final Result Performing Organization Address [facility] [place] [address] * (ABNORMAL) POCT glucose (06/23/2024 11:26 AM CDT) [facility] Glucose, POC 222(H) 70 - 199 mg/dL Blood 06/23/2024 11:2 6 AM CDT 06/23/2024 11:26 AM CDT us Marcela Silva MD LAB POCT ORDERABLES - DEVIC E Final Result Performing Organization Address [facility] [place] [address] * POCT glucose (06/23/2024 8:03 AM CDT) [facility] Glucose, POC 152 70 - 199 mg/dL Blood 06/23/2024 8:03 AM CDT 06/23/2024 8:03 AM CDT us Marcela Silva MD LAB POCT ORDERABLES - DEVIC E Final Result Performing Organization Address [facility] Co de Phone Number [facility] [place] [address] * eGFR (06/23/2024 3:34 AM CDT) [facility] eGFR >90 >=60 mL/min/1. 73 m2 [...] interpretive data was last reviewed 2021. Blood 06/23/2024 3:34 AM CDT 06/23/2024 3:58 AM CDT Parviz Hannon MD PhD LAB BLOOD ORDERABLES Final Result [facility] Department of Laboratories [place], [place] [id number] * (ABNORMAL) Manual Differential (06/23/2024 3:34 AM CDT) [facility] Differential Manual Cells Counted 114 [facility] Neutrophil abs 7.9(H) 1.5 - 6.5 K/cumm [facility] Imm gran abs 0.0 0.0 - 0.1 K/cumm [facility] Lymphocyte abs 4.0(H) 0.8 - 3.3 K/cumm [facility] Monocyte abs 2.0(H) 0.2 - 0.8 K/cumm [facility] Eosinophil abs 0.4 0.0 - 0.5 K/cumm [facility] Neutrophil pct 55.3 % [facility] Comment: Interpretive Data Percent cell count reference ranges are not reported, since discordance with absolute values may lead to misinterpretation of CBC data. Current Interpretive Data was last revised on 2018. Lymphocyte pct 28.1 % [facility] Comment: Interpretive Data Percent cell count reference ranges are not reported, since discordance with absolute values may lead to misinterpretation of CBC data. Current Interpretive Data was last revised on 2018. Monocyte pct 14.0 % [facility] Comment: Interpretive Data Percent cell count reference ranges are not reported, since discordance with absolute values may lead to misinterpretation of CBC data. Current Interpretive Data was last revised on 2018. Eosinophil pct 2.6 % [facility] Comment: Interpretive Data Percent cell count reference ranges are not reported, since discordance with absolute values may lead to misinterpretation of CBC data. Current Interpretive Data was last revised on 2018. RBC morphology Present(A) [facility] Anisocytosis Marked(A) [facility] Macrocytes > 15/HPF(A) [facility] Platelet estimate Adequate [facility] Blood 06/23/2024 3:34 AM CDT 06/23/2024 3:58 AM CDT us Parviz Hannon MD PhD LAB BLOOD ORDERABLES Edited Result - Final [facility] Department [place] [address] * (ABNORMAL) CBC without differential (06/23/2024 3:34 AM CDT) WBC 14.3(H) 3.8 - 9.9 K/cumm Hgb 9.3(L) 13.0 - 17.5 g/dL [facility] Hct 27.1(L) 38.9 - 50.3 % [facility] Plt 358 150 - 400 K/cumm [facility] MPV 10.5 9.1 - 12.3 fL [facility] RBC 2.75(L) 4.30 - 5.80 M/cumm [facility] MCV 98.5(H) 81.3 - 96.4 fL [facility] MCH 33.8(H) 27.1 - 33.3 pg [facility] MCHC 34.3 32.3 - 35.7 g/dL [facility] RDW CV 15.3(H) 11.1 - 14.9 % [facility] RDW SD 54.9(H) 35.7 - 48.1 fL [facility] NRBC abs 0.60(H) 0.00 - 0.01 K/cumm [facility] Blood 06/23/2024 3:34 AM CDT 06/23/2024 3:58 AM CDT Parviz Hannon MD PhD LAB BLOOD ORDERABLES Final Result [facility] Department [place] [address] * (ABNORMAL) Basic metabolic panel (06/23/2024 3:34 AM CDT) Sodium 141 135 - 145 mmol/L Potassium, pl 3.4 3.3 - 4.9 mmol/L [facility] Chloride 99 97 - 110 mmol/L [facility] CO2 35(H) 22 - 32 mmol/L [facility] Anion gap 7 2 - 15 mmol/L [facility] BUN 34(H) 6 - 25 mg/dL [facility] Creatinine 0.79(L) 0.80 - 1.30 mg/dL [facility] Glucose 136 70 - 199 mg/dL [facility] Comment: Interpretive Data Fasting glucose >/= 126 [...] 2022. Calcium 8.7 8.5 - 10.3 mg/dL [facility] Blood 06/23/2024 3:34 AM CDT 06/23/2024 3:58 AM CDT Narrative [facility] - 06/23/2024 4:29 AM CDT Daily except Saturday and . Morning draw. Parviz Hannon MD PhD LAB BLOOD ORDERABLES Final Result Performing Organization Address [facility] de Phone Number [facility] Department [place] [address] * Phosphorus (06/23/2024 3:34 AM CDT) Phosphorus, pl 3.7 2.3 - 4.5 mg/dL Blood 06/23/2024 3:34 AM CDT 06/23/2024 3:58 AM CDT Parviz Hannon MD PhD LAB BLOOD ORDERABLES Final Result Performing Organization Address [facility] de Phone Number [facility] Department [place] [address] * Magnesium (06/23/2024 3:34 AM CDT) Magnesium 1.7 1.4 - 2.5 mg/dL Blood 06/23/2024 3:34 AM CDT 06/23/2024 3:58 AM CDT Parviz Hannon MD PhD LAB BLOOD ORDERABLES Final Result Performing Organization Address [facility] [place] [address] * (ABNORMAL) POCT glucose (06/22/2024 8:43 PM CDT) Glucose, POC 233(H) 70 - 199 mg/dL Blood 06/22/2024 8:43 PM CDT 06/22/2024 8:43 PM CDT us Marcela Silva MD LAB POCT ORDERABLES - [place] [address] * POCT glucose (06/22/2024 5:15 PM CDT) Glucose, POC 161 70 - 199 mg/dL Blood 06/22/2024 5:15 PM CDT 06/22/2024 5:15 PM CDT us Marcela Silva MD LAB POCT ORDERABLES - DEVIC E Final Result Performing Organization Address City/[facility]/[place] [address] * (ABNORMAL) POCT glucose (06/22/2024 11:35 AM CDT) Glucose, POC 307(H) 70 - 199 mg/dL Blood 06/22/2024 11:3 5 AM CDT 06/22/2024 11:35 AM CDT us Marcela Silva MD LAB POCT ORDERABLES - DEVIC E Final Result [facility] [place] [address] * POCT glucose (06/22/2024 7:40 AM CDT) Glucose, POC 190 70 - 199 mg/dL Blood 06/22/2024 7:40 AM CDT 06/22/2024 7:40 AM CDT us Marcela Silva MD LAB POCT ORDERABLES - DEVIC E Final Result Performing Organization Address City/State/[facility] Co de Phone Number [facility] Department [place] [address] * eGFR (06/22/2024 4:39 AM CDT) eGFR >90 >=60 mL/min/1. 73 [...] interpretive data was last reviewed 2021. Blood 06/22/2024 4:39 AM CDT 06/22/2024 4:50 AM CDT us Parviz Hannon MD PhD LAB BLOOD ORDERABLES Final Result ZULEMA DENT Daniela [facility] Department [place] [address] * (ABNORMAL) Manual Differential (06/22/2024 4:39 AM CDT) Differential Manual Cells Counted 117 [facility] Neutrophil abs 7.4(H) 1.5 - 6.5 K/cumm [facility] Imm gran abs 0.1 0.0 - 0.1 K/cumm [facility] Lymphocyte abs 3.2 0.8 - 3.3 K/cumm [facility] Monocyte abs 2.5(H) 0.2 - 0.8 K/cumm [facility] Neutrophil pct 56.4 % [facility] Comment: Interpretive Data Percent cell count reference ranges are not reported, since discordance with absolute values may lead to misinterpretation of CBC data. Current Interpretive Data was last revised on 2018. Lymphocyte pct 23.9 % [facility] Comment: Interpretive Data Percent cell count reference ranges are not reported, since discordance with absolute values may lead to misinterpretation of CBC data. Current Interpretive Data was last revised on 2018. Monocyte pct 18.8 % [facility] Comment: Interpretive Data Percent cell count reference ranges are not reported, since discordance with absolute values may lead to misinterpretation of CBC data. Current Interpretive Data was last revised on 2018. Metamyelocyte pct 0.9 % [facility] RBC morphology Present(A) [facility] Anisocytosis Moderate(A) [facility] Macrocytes 8-15/HPF(A) [facility] Target cells 3-7/HPF(A) [facility] Platelet estimate Adequate [facility] Blood 06/22/2024 4:39 AM CDT 06/22/2024 4:50 AM CDT us Parviz Hannon MD PhD LAB BLOOD ORDERABLES Edited Result - Final ZULEMA Suarez [facility] Department [place] [address] * (ABNORMAL) CBC without differential (06/22/2024 4:39 AM CDT) [facility] WBC 13.2(H) 3.8 - 9.9 K/cumm Hgb 10.2(L) 13.0 - 17.5 g/dL [facility] Hct 29.8(L) 38.9 - 50.3 % [facility] Plt 403(H) 150 - 400 K/cumm [facility] MPV 9.9 9.1 - 12.3 fL [facility] RBC 3.02(L) 4.30 - 5.80 M/cumm [facility] MCV 98.7(H) 81.3 - 96.4 fL [facility] MCH 33.8(H) 27.1 - 33.3 pg [facility] MCHC 34.2 32.3 - 35.7 g/dL [facility] RDW CV 15.1(H) 11.1 - 14.9 % [facility] RDW SD 54.9(H) 35.7 - 48.1 fL [facility] NRBC abs 0.54(H) 0.00 - 0.01 K/cumm [facility] Blood 06/22/2024 4:39 AM CDT 06/22/2024 4:50 AM CDT us Parviz Hannon MD PhD LAB BLOOD ORDERABLES Final Result Z[facility]MA [facility] Department [place] [address] * (ABNORMAL) Protime-INR (06/22/2024 4:39 AM CDT) [facility] PT 20.3(H) 9.7 - 13.0 sec INR 1.86(H) 0.90 - 1.20 [facility] Comment: Interpretive data Oral anticoagulant therapeutic ranges: Venous thromboembolism prophylaxis or treatment: 2.0-3.0 CARDIOLOGY Standard range: 2.0-3.0 High-intensity range: 2.5-3.5 Refer to indication-specific guidelines for appropriate target ranges for prosthetic heart valve replacement. Current interpretive data was last revised on 2019. Blood 06/22/2024 4:39 AM CDT 06/22/2024 5:07 AM CDT Parviz Hannon MD PhD LAB BLOOD ORDERABLES Final Result Performing Organization Address [facility] de Phone Number [facility] [place] [address] * aPTT (06/22/2024 4:39 AM CDT) aPTT 37 28 - 38 sec Comment: Interpretive Data Heparin therapeutic range: 66.0 - 100.0 seconds. Range based on correlation with therapeutic heparin activity range of 0.3 - 0.7 Units/mL. Current interpretive data was last revised on 2023. Blood 06/22/2024 4:39 AM CDT 06/22/2024 5:07 AM CDT Parviz Hannon MD PhD LAB BLOOD ORDERABLES Final Result Performing Organization Address [facility] de Phone Number [facility] [place] [address] * (ABNORMAL) Lactate dehydrogenase (LD) (06/22/2024 4:39 AM CDT) Lactate dehydrogenase (LDH) 272(H) 100 - 250 Units/L Blood 06/22/2024 4:39 AM CDT 06/22/2024 4:50 AM CDT Narrative [facility] - 06/22/2024 5:21 AM CDT Saturday and only. Morning draw. Parviz Hannon MD PhD LAB BLOOD ORDERABLES Final Result Performing Organization Address [facility]/ZIP Co de Phone Number [facility] Department [place] [address] * Uric acid (06/22/2024 4:39 AM CDT) [facility] Uric acid 3.0 3.0 - 8.0 mg/dL Blood 06/22/2024 4:39 AM CDT 06/22/2024 4:[address] [facility] 06/22/2024 5:21 AM CDT Saturday and only. Morning draw. . us Parviz Hannon MD PhD LAB BLOOD ORDERABLES Final Result Performing Organization Address [facility] de Phone Number [facility] [place] [address] * (ABNORMAL) Comprehensive metabolic panel (06/22/2024 4:39 AM CDT) [facility] Sodium 140 135 - 145 mmol/L Potassium, pl 3.5 3.3 - 4.9 mmol/L [facility] Chloride 99 97 - 110 mmol/L [facility] CO2 35(H) 22 - 32 mmol/L [facility] Anion gap 6 2 - 15 mmol/L [facility] BUN 35(H) 6 - 25 mg/dL [facility] Creatinine 0.79(L) 0.80 - 1.30 mg/dL [facility] Glucose 203(H) 70 - 199 mg/dL [facility] Comment: Interpretive Data Fasting glucose >/= 126 [...] interpretive data was last revised 2022. Calcium 8.9 8.5 - 10.3 mg/dL [facility] Bilirubin, total 0.2 0.1 - 1.2 mg/dL [facility] Protein, pl 6.8 6.5 - 8.5 g/dL [facility] Albumin 3.0(L) 3.5 - 5.0 g/dL [facility] Alk phos 170(H) 40 - 130 Units/L [facility] ALT 65(H) 7 - 55 Units/L [facility] AST 57(H) 10 - 50 Units/L [facility] Blood 06/22/2024 4:39 AM CDT 06/22/2024 4:50 AM CDT Narrative [facility] - 06/22/2024 5:21 AM CDT Saturday and only. Morning draw. Parviz Hannon MD PhD LAB BLOOD ORDERABLES Final Result Performing Organization Address City/[facility] Co de Phone Number [facility] [place] [address] * Type and screen (06/22/2024 4:39 AM CDT) ABO Rh A Positive Ursula, indirect Negative [facility] Blood 06/22/2024 4:39 AM CDT 06/22/2024 5:43 AM CDT Narrative [facility] - 06/22/2024 6:44 AM CDT Has the patient had Daratumumab or Isatuximab in the past 6 months?->Unknown Parviz Hannon MD PhD LAB BLOOD BANK TEST ORDERABLES Final Result Performing Organization Address City/[facility]/ZIP Co de Phone Number [facility] [place] [address] * Phosphorus (06/22/2024 4:39 AM CDT) Phosphorus, pl 3.5 2.3 - 4.5 mg/dL Blood 06/22/2024 4:39 AM CDT 06/22/2024 4:50 AM CDT Parviz Hannon MD PhD LAB BLOOD ORDERABLES Final Result Performing Organization Address [facility] de Phone Number [facility] Department [place] [address] * (ABNORMAL) Magnesium (06/22/2024 4:39 AM CDT) Magnesium 1.3(L) 1.4 - 2.5 mg/dL Blood 06/22/2024 4:39 AM CDT 06/22/2024 4:50 AM CDT us Parviz Hannon MD PhD LAB BLOOD ORDERABLES Final Result Performing Organization Address [facility] de Phone Number [facility] [place] [address] * POCT glucose (06/21/2024 9:37 PM CDT) Glucose, POC 122 70 - 199 mg/dL Blood 06/21/2024 9:37 PM CDT 06/21/2024 9:37 PM CDT us Marcela Silva MD LAB POCT ORDERABLES - DEVIC E Final Result Performing Organization Address [facility] de Phone Number [facility] [place] [address] * (ABNORMAL) POCT glucose (06/21/2024 7:46 PM CDT) Glucose, POC 264(H) 70 - 199 mg/dL Blood 06/21/2024 7:46 PM CDT 06/21/2024 7:46 PM CDT us Marcela Silva MD LAB POCT ORDERABLES - DEVIC E Final Result Performing Organization Address [facility] de Phone Number [facility] [place] [address] * POCT glucose (06/21/2024 1:53 PM CDT) Glucose, POC 157 70 - 199 mg/dL Blood 06/21/2024 1:53 PM CDT 06/21/2024 1:53 PM CDT us Marcela Silva MD LAB POCT ORDERABLES - DEVIC E Final Result Performing Organization Address [facility] de Phone Number [facility] [place] [address] * POCT glucose (06/21/2024 7:25 AM CDT) Glucose, POC 160 70 - 199 mg/dL Blood 06/21/2024 7:25 AM CDT 06/21/2024 7:25 AM CDT Marcela Silva MD LAB POCT ORDERABLES - DEVIC E Final Result Performing Organization Address [facility] de Phone Number [facility] [place] [address] * eGFR (06/21/2024 2:32 AM CDT) eGFR >90 >=60 mL/min/1. 73 [...] interpretive data was last reviewed 2021. Blood 06/21/2024 2:32 AM CDT 06/21/2024 2:55 AM CDT Parviz Hannon MD PhD LAB BLOOD ORDERABLES Final Result [facility] Department [place] [address] * (ABNORMAL) Manual Differential (06/21/2024 2:32 AM CDT) Differential Manual Cells Counted 114 [facility] Neutrophil abs 9.7(H) 1.5 - 6.5 K/cumm [facility] Imm gran abs 0.0 0.0 - 0.1 K/cumm [facility] Lymphocyte abs 2.7 0.8 - 3.3 K/cumm [facility] Monocyte abs 1.6(H) 0.2 - 0.8 K/cumm [facility] Neutrophil pct 69.3 % [facility] Comment: Interpretive Data Percent cell count reference ranges are not reported, since discordance with absolute values may lead to misinterpretation of CBC data. Current Interpretive Data was last revised on 2018. Lymphocyte pct 19.3 % [facility] Comment: Interpretive Data Percent cell count reference ranges are not reported, since discordance with absolute values may lead to misinterpretation of CBC data. Current Interpretive Data was last revised on 2018. Monocyte pct 11.4 % [facility] Comment: Interpretive Data Percent cell count reference ranges are not reported, since discordance with absolute values may lead to misinterpretation of CBC data. Current Interpretive Data was last revised on 2018. RBC morphology Present(A) [facility] Anisocytosis Marked(A) [facility] Macrocytes > 15/HPF(A) [facility] Platelet estimate Adequate [facility] Blood 06/21/2024 2:32 AM CDT 06/21/2024 2:55 AM CDT us Parviz Hannon MD PhD LAB BLOOD ORDERABLES Edited Result - Final [facility] [place] [address] * (ABNORMAL) CBC without differential (06/21/2024 2:32 AM CDT) WBC 14.0(H) 3.8 - 9.9 K/cumm Hgb 10.5(L) 13.0 - 17.5 g/dL [facility] Hct 32.2(L) 38.9 - 50.3 % [facility] Plt 440(H) 150 - 400 K/cumm [facility] MPV 10.2 9.1 - 12.3 fL [facility] RBC 3.24(L) 4.30 - 5.80 M/cumm [facility] MCV 99.4(H) 81.3 - 96.4 fL [facility] MCH 32.4 27.1 - 33.3 pg [facility] MCHC 32.6 32.3 - 35.7 g/dL [facility] RDW CV 15.0(H) 11.1 - 14.9 % [facility] RDW SD 55.0(H) 35.7 - 48.1 fL [facility] NRBC abs 0.22(H) 0.00 - 0.01 K/cumm [facility] Blood 06/21/2024 2:32 AM CDT 06/21/2024 2:55 AM CDT Parviz Hannon MD PhD LAB BLOOD ORDERABLES Final Result [facility] Department [place] [address] * (ABNORMAL) Basic metabolic panel (06/21/2024 2:32 AM CDT) [facility] Sodium 141 135 - 145 mmol/L Potassium, pl 3.3 3.3 - 4.9 mmol/L [facility] Chloride 97 97 - 110 mmol/L [facility] CO2 34(H) 22 - 32 mmol/L [facility] Anion gap 10 2 - 15 mmol/L [facility] BUN 20 6 - 25 mg/dL [facility] Creatinine 0.59(L) 0.80 - 1.30 mg/dL [facility] Glucose 240(H) 70 - 199 mg/dL [facility] Comment: Interpretive Data Fasting glucose >/= 126 [...] interpretive data was last revised 2022. Calcium 8.9 8.5 - 10.3 mg/dL [facility] Blood 06/21/2024 2:32 AM CDT 06/21/2024 2:55 AM CDT Narrative [facility] - 06/21/2024 3:25 AM CDT Daily except Saturday and . Morning draw. Parviz Hannon MD PhD LAB BLOOD ORDERABLES Final Result [facility] [place] [address] * (ABNORMAL) Phosphorus (06/21/2024 2:32 AM CDT) [facility] Phosphorus, pl 2.2(L) 2.3 - 4.5 mg/dL Blood 06/21/2024 2:32 AM CDT 06/21/2024 2:55 AM CDT Parviz Hannon MD PhD LAB BLOOD [place] [address] * Magnesium (06/21/2024 2:32 AM CDT) [facility] Magnesium 1.5 1.4 - 2.5 mg/dL Blood 06/21/2024 2:32 AM CDT 06/21/2024 2:55 AM CDT Parviz Hannon MD PhD LAB BLOOD ORDERABLES Final Result Performing Organization Address City/[facility]/[place] [address] * (ABNORMAL) POCT glucose (06/20/2024 9:16 PM CDT) [facility] Glucose, POC 371(H) 70 - 199 mg/dL Blood 06/20/2024 9:16 PM CDT 06/20/2024 9:16 PM CDT us Marcela Silva MD LAB POCT ORDERABLES - DEVIC E Final Result Performing Organization Address City/[facility]/[place] [address] * (ABNORMAL) POCT glucose (06/20/2024 9:09 PM CDT) Glucose, POC 393(H) 70 - 199 mg/dL Blood 06/20/2024 9:09 PM CDT 06/20/2024 9:09 PM CDT us Marcela Silva MD LAB POCT ORDERABLES - DEVIC E Final Result Performing Organization Address City/[facility] Co de Phone Number [facility] [place] [address] * (ABNORMAL) POCT glucose (06/20/2024 5:12 PM CDT) Glucose, POC 405(H) 70 - 199 mg/dL Blood 06/20/2024 5:12 PM CDT 06/20/2024 5:12 PM CDT us Marcela Silva MD LAB POCT ORDERABLES - DEVIC E Final Result Performing Organization Address City/[facility] Co de Phone Number [facility] [place] [address] * POCT glucose (06/20/2024 1:01 PM CDT) Glucose, POC 159 70 - 199 mg/dL Blood 06/20/2024 1:01 PM CDT 06/20/2024 1:01 PM CDT us Marcela Silva MD LAB POCT ORDERABLES - DEVIC E Final Result Performing Organization Address City/[facility] Co de Phone Number [facility] [place] [address] * (ABNORMAL) POCT glucose (06/20/2024 7:36 AM CDT) Glucose, POC 280(H) 70 - 199 mg/dL Blood 06/20/2024 7:36 AM CDT 06/20/2024 7:36 AM CDT us Marcela Silva MD LAB POCT ORDERABLES - DEVIC E Final Result Performing Organization Address [facility] de Phone Number [facility] [place] [address] * eGFR (06/20/2024 3:59 AM CDT) eGFR >90 >=60 mL/min/1. 73 [...] interpretive data was last reviewed 2021. Blood 06/20/2024 3:59 AM CDT 06/20/2024 4:06 AM CDT us Marcela Silva MD LAB BLOOD ORDERABLES Final Result Performing Organization Address [facility] Co de Phone Number CERNER [facility] [address] * (ABNORMAL) Phosphorus (06/20/2024 3:59 AM CDT) [facility] Phosphorus, pl 1.7(L) 2.3 - 4.5 mg/dL Blood 06/20/2024 3:59 AM CDT 06/20/2024 4:06 AM CDT Narrative [facility] - 06/20/2024 4:37 AM CDT redraw us Marcela Silva MD LAB BLOOD ORDERABLES Final Result [facility] [place] [address] * Magnesium (06/20/2024 3:59 AM CDT) [facility] Magnesium 1.5 1.4 - 2.5 mg/dL Blood 06/20/2024 3:59 AM CDT 06/20/2024 4:06 AM CDT Narrative [facility] 06/20/2024 4:37 AM CDT redraw us Marcela Silva MD LAB BLOOD ORDERABLES Final Result [facility] Department [place] [address] * (ABNORMAL) Comprehensive metabolic panel (06/20/2024 3:59 AM CDT) [facility] Sodium 141 135 - 145 mmol/L Potassium, pl 3.3 3.3 - 4.9 mmol/L [facility] Chloride 102 97 - 110 mmol/L [facility] CO2 34(H) 22 - 32 mmol/L [facility] Anion gap 5 2 - 15 mmol/L [facility] BUN 19 6 - 25 mg/dL [facility] Creatinine 0.60(L) 0.80 - 1.30 mg/dL [facility] Glucose 271(H) 70 - 199 mg/dL [facility] Comment: Interpretive Data Fasting glucose >/= 126 [...] 2022. Calcium 8.4(L) 8.5 - 10.3 mg/dL [facility] Bilirubin, total 0.2 0.1 - 1.2 mg/dL [facility] Protein, pl 7.2 6.5 - 8.5 g/dL [facility] Albumin 3.1(L) 3.5 - 5.0 g/dL [facility] Alk phos 212(H) 40 - 130 Units/L [facility] ALT 38 7 - 55 Units/L [facility] AST 48 10 - 50 Units/L [facility] Blood 06/20/2024 3:59 AM CDT 06/20/2024 4:06 AM CDT Narrative [facility] - 06/20/2024 4:37 AM CDT redraw Marcela Silva MD LAB BLOOD ORDERABLES Final Result [facility] [place] [address] * eGFR (06/20/2024 3:02 AM CDT) [facility] eGFR >90 >=60 mL/min/1. 73 m2 [...] interpretive data was last reviewed 2021. Blood 06/20/2024 3:02 AM CDT 06/20/2024 3:14 AM CDT us Parviz Hannon MD PhD LAB BLOOD ORDERABLES Final Result [facility] [place] [address] * (ABNORMAL) Manual Differential (06/20/2024 3:02 AM CDT) Differential Manual Cells Counted 115 [facility] Neutrophil abs 15.0(H) 1.5 - 6.5 K/cumm [facility] Imm gran abs 0.0 0.0 - 0.1 K/cumm [facility] Lymphocyte abs 1.6 0.8 - 3.3 K/cumm [facility] Monocyte abs 0.6 0.2 - 0.8 K/cumm [facility] Neutrophil pct 86.9 % [facility] Comment: Interpretive Data Percent cell count reference ranges are not reported, since discordance with absolute values may lead to misinterpretation of CBC data. Current Interpretive Data was last revised on 2018. Lymphocyte pct 9.6 % [facility] Comment: Interpretive Data Percent cell count reference ranges are not reported, since discordance with absolute values may lead to misinterpretation of CBC data. Current Interpretive Data was last revised on 2018. Monocyte pct 3.5 % [facility] Comment: Interpretive Data Percent cell count reference ranges are not reported, since discordance with absolute values may lead to misinterpretation of CBC data. Current Interpretive Data was last revised on 2018. RBC morphology Normal [facility] Platelet estimate Increased( A) [facility] Blood 06/20/2024 3:02 AM CDT 06/20/2024 3:14 AM CDT us Parviz Hannon MD PhD LAB BLOOD ORDERABLES Edited Result - Final [facility] [place] [address] * (ABNORMAL) CBC without differential (06/20/2024 3:02 AM CDT) WBC 17.2(H) 3.8 - 9.9 K/cumm Hgb 9.0(L) 13.0 - 17.5 g/dL [facility] Hct 27.0(L) 38.9 - 50.3 % [facility] Plt 454(H) 150 - 400 K/cumm [facility] MPV 10.8 9.1 - 12.3 fL [facility] RBC 2.68(L) 4.30 - 5.80 M/cumm [facility] MCV 100.7(H) 81.3 - 96.4 fL [facility] MCH 33.6(H) 27.1 - 33.3 pg [facility] MCHC 33.3 32.3 - 35.7 g/dL [facility] RDW CV 15.6(H) 11.1 - 14.9 % [facility] RDW SD 58.3(H) 35.7 - 48.1 fL [facility] NRBC abs 0.07(H) 0.00 - 0.01 K/cumm [facility] Blood 06/20/2024 3:02 AM CDT 06/20/2024 3:14 AM CDT Parviz Hannon MD PhD LAB BLOOD ORDERABLES Final Result [facility] [place] [address] * (ABNORMAL) Basic metabolic panel (06/20/2024 3:02 AM CDT) [facility] Sodium 141 135 - 145 mmol/L Potassium, pl 4.1 3.3 - 4.9 mmol/L [facility] Comment:Hemolyzed; Potassium value may be falsely elevated by as much as 1.1-1.6 mmol/L. Suggest redraw and reanalysis. Chloride 102 97 - 110 mmol/L [facility] CO2 34(H) 22 - 32 mmol/L [facility] Anion gap 5 2 - 15 mmol/L [facility] BUN 19 6 - 25 mg/dL [facility] Creatinine 0.56(L) 0.80 - 1.30 mg/dL [facility] Glucose 267(H) 70 - 199 mg/dL [facility] Comment: Interpretive Data Fasting glucose >/= 126 [...] 2022. Calcium 8.3(L) 8.5 - 10.3 mg/dL [facility] Blood 06/20/2024 3:02 AM CDT 06/20/2024 3:14 AM CDT Narrative [facility] - 06/20/2024 3:43 AM CDT Daily except Saturday and . Morning draw. Parviz Hannon MD PhD LAB BLOOD ORDERABLES Final Result Performing Organization Address [facility] Co de Phone Number [facility] [place] [address] * (ABNORMAL) Phosphorus (06/20/2024 3:02 AM CDT) Phosphorus, pl 1.7(L) 2.3 - 4.5 mg/dL Blood 06/20/2024 3:02 AM CDT 06/20/2024 3:14 AM CDT Parviz Hannon MD PhD LAB BLOOD ORDERABLES Final Result Performing Organization Address [facility] de Phone Number [facility] [place] [address] * Magnesium (06/20/2024 3:02 AM CDT) Magnesium 1.5 1.4 - 2.5 mg/dL Blood 06/20/2024 3:02 AM CDT 06/20/2024 3:14 AM CDT Parviz Hannon MD PhD LAB BLOOD ORDERABLES Final Result Performing Organization Address [facility] de Phone Number [facility] [place] [address] * (ABNORMAL) Infection Prevention VRE Culture Stool (06/19/2024 10:00 PM CDT) Report Final Report: Enterococcus species, vancomycin resistant (.) Organism ENTEROCOCCUS SPECIES, VANCOMYCIN RESISTANT [place] [facility] Stool 06/19/2024 10:0 0 PM CDT 06/20/2024 5:06 AM CDT Narrative [facility] - 06/21/2024 10:32 AM CDT Surveillance culture for Infection Prevention purposes only; results indicate colonization, not infection requiring treatment. Testing performed by [facility] ([phone]). us Marcela Silva MD LAB MICROBIOLOGY - GENERAL ORDERABLES Final Result Performing Organization Address [facility] Co de Phone Number [facility] Department [place] [address] * C. difficile testing Stool (06/19/2024 10:00 PM CDT) [facility] Result Negative Negative Toxin Result Negative Negative [facility] C. diff result Negative, free toxin Negative, free toxin [facility] C. diff interp Negative for toxigenic Clostridioides (Clostridium) difficile. Analysis was performed using a glutamate dehydrogenase antigen detection assay combined with a C. difficile toxin detection assay. [facility] Stool 06/19/2024 10:0 0 PM CDT 06/20/2024 12:43 AM CDT us Marcela Silva MD LAB MICROBIOLOGY - GENERAL ORDERABLES Final Result Performing Organization Address [facility] de Phone Number [facility] [place] [address] * (ABNORMAL) POCT glucose (06/19/2024 8:27 PM CDT) [facility] Glucose, POC 263(H) 70 - 199 mg/dL Blood 06/19/2024 8:27 PM CDT 06/19/2024 8:27 PM CDT Parviz Hannon MD PhD LAB POCT ORDERABLES - DEVICE Final Result Performing Organization Address [facility] [place] [address] * (ABNORMAL) POCT glucose (06/19/2024 5:41 PM CDT) [facility] Glucose, POC 268(H) 70 - 199 mg/dL Blood 06/19/2024 5:41 PM CDT 06/19/2024 5:41 PM CDT Parviz Hannon MD PhD LAB POCT ORDERABLES - DEVICE Final Result Performing Organization Address [facility] de Phone Number [facility] [place] [address] * POCT glucose (06/19/2024 12:20 PM CDT) Pathologist [facility] Glucose, POC 126 70 - 199 mg/dL Blood 06/19/2024 12:2 0 PM CDT 06/19/2024 12:20 PM CDT Parviz Hannon MD PhD LAB POCT ORDERABLES - DEVICE Final Result Performing Organization Address [facility] [place] [address] * Histoplasma Antigen Urine (06/19/2024 10:04 AM CDT) [facility] Histo Ag Ur result None Detected None Detected Histo Ag Ur interp Negative Negative [facility] Comment: Result Interpretation: Reference interval: None Detected Results reported as ng/mL in 0.20 - 20.00 ng/mL range Results above 20.00 ng/mL are reported as 'Positive, Above the Limit of Quantification' Testing Performed by: [employer], [address] [place] [address] [place] [address]. This test was developed and its performance characteristics determined by [employer]. It has not been cleared or approved by the FDA; however, FDA clearance or approval is not currently required for clinical use. The results are not intended to be used as the sole means for clinical diagnosis or patient management decisions. Interpretative data updated 01/16/2021 Urine 06/19/2024 10:0 4 AM CDT 06/19/2024 11:29 AM CDT us Marcela Silva MD LAB MICROBIOLOGY - GENERAL ORDERABLES Final Result Performing Organization Address [facility] Co de Phone Number [facility] [place] [address] * (ABNORMAL) POCT glucose (06/19/2024 8:18 AM CDT) Glucose, POC 252(H) 70 - 199 mg/dL Blood 06/19/2024 8:18 AM CDT 06/19/2024 8:18 AM CDT us Parviz Hannon MD PhD LAB POCT ORDERABLES - DEVICE Final Result Performing Organization Address [facility] de Phone Number [facility] [place] [address] * eGFR (06/19/2024 4:41 AM CDT) eGFR >90 >=60 mL/min/1. 73 [...] Inclusion of Race in Diagnosing Kidney Disease, PETEYSN 2020). The CKD-EPI equation should not be used for patients with unstable renal function and has not been validated in children and those over 70. Current interpretive data was last reviewed 2021. Blood 06/19/2024 4:41 AM CDT 06/19/2024 5:02 AM CDT Anthony Grace MD LAB BLOOD ORDERABLES Final Result [facility] Department [place] [address] * (ABNORMAL) Manual Differential (06/19/2024 4:41 AM CDT) Differential Manual Cells Counted 115 [facility] Neutrophil abs 22.7(H) 1.5 - 6.5 K/cumm [facility] Imm gran abs 0.0 0.0 - 0.1 K/cumm [facility] Lymphocyte abs 0.8 0.8 - 3.3 K/cumm [facility] Monocyte abs 0.2 0.2 - 0.8 K/cumm [facility] Neutrophil pct 95.6 % [facility] Comment: Interpretive Data Percent cell count reference ranges are not reported, since discordance with absolute values may lead to misinterpretation of CBC data. Current Interpretive Data was last revised on 2018. Lymphocyte pct 3.5 % [facility] Comment: Interpretive Data Percent cell count reference ranges are not reported, since discordance with absolute values may lead to misinterpretation of CBC data. Current Interpretive Data was last revised on 2018. Monocyte pct 0.9 % [facility] Comment: Interpretive Data Percent cell count reference ranges are not reported, since discordance with absolute values may lead to misinterpretation of CBC data. Current Interpretive Data was last revised on 2018. RBC morphology Present(A) [facility] Anisocytosis Moderate(A) [facility] Macrocytes 8-15/HPF(A) [facility] Platelet estimate Adequate [facility] Blood 06/19/2024 4:41 AM CDT 06/19/2024 5:02 AM CDT Anthony Grace MD LAB BLOOD ORDERABLES Edited Result - Final Performing Organization Address [facility]/ZIP Co de Phone Number [facility] Department [place] [address] * (ABNORMAL) CBC without differential (06/19/2024 4:41 AM CDT) WBC 23.7(H) 3.8 - 9.9 K/cumm Hgb 9.1(L) 13.0 - 17.5 g/dL [facility] Hct 27.8(L) 38.9 - 50.3 % [facility] Plt 413(H) 150 - 400 K/cumm [facility] MPV 10.2 9.1 - 12.3 fL [facility] RBC 2.73(L) 4.30 - 5.80 M/cumm [facility] MCV 101.8(H) 81.3 - 96.4 fL [facility] MCH 33.3 27.1 - 33.3 pg [facility] MCHC 32.7 32.3 - 35.7 g/dL [facility] RDW CV 15.5(H) 11.1 - 14.9 % [facility] RDW SD 58.0(H) 35.7 - 48.1 fL [facility] NRBC abs 0.06(H) 0.00 - 0.01 K/cumm [facility] Blood 06/19/2024 4:41 AM CDT 06/19/2024 5:02 AM CDT us Anthony Grace MD LAB BLOOD ORDERABLES Final Result [facility] [place] [address] * (ABNORMAL) Basic metabolic panel (06/19/2024 4:41 AM CDT) Sodium 142 135 - 145 mmol/L Potassium, pl 3.9 3.3 - 4.9 mmol/L [facility] Chloride 104 97 - 110 mmol/L [facility] CO2 29 22 - 32 mmol/L [facility] Anion gap 9 2 - 15 mmol/L [facility] BUN 20 6 - 25 mg/dL [facility] Creatinine 0.82 0.80 - 1.30 mg/dL [facility] Glucose 246(H) 70 - 199 mg/dL [facility] Comment: Interpretive Data Fasting glucose >/= 126 [...] 2022. Calcium 8.8 8.5 - 10.3 mg/dL [facility] Blood 06/19/2024 4:41 AM CDT 06/19/2024 5:02 AM CDT Narrative [facility] - 06/19/2024 5:33 AM CDT Daily except Saturday and . Morning draw. Parviz Hannon MD PhD LAB BLOOD ORDERABLES Final Result Performing Organization Address City/[facility]/ZIP Co de Phone Number [facility] Department [place] [address] * Phosphorus (06/19/2024 4:41 AM CDT) [facility] Phosphorus, pl 2.4 2.3 - 4.5 mg/dL Blood 06/19/2024 4:41 AM CDT 06/19/2024 5:02 AM CDT Parviz Hannon MD PhD LAB BLOOD ORDERABLES Final Result [facility] [place] [address] * Magnesium (06/19/2024 4:41 AM CDT) Magnesium 1.7 1.4 - 2.5 mg/dL Blood 06/19/2024 4:41 AM CDT 06/19/2024 5:02 AM CDT Parviz Hannon MD PhD LAB BLOOD ORDERABLES Final Result Performing Organization Address [facility] [place] [address] * (ABNORMAL) POCT glucose (06/18/2024 8:58 PM CDT) [facility] Glucose, POC 307(H) 70 - 199 mg/dL Blood 06/18/2024 8:58 PM CDT 06/18/2024 8:58 PM CDT Parviz Hannon MD PhD LAB POCT ORDERABLES - DEVICE Final Result Performing Organization Address [facility] de Phone Number [facility] [place] [address] * (ABNORMAL) POCT glucose (06/18/2024 5:57 PM CDT) Glucose, POC 240(H) 70 - 199 mg/dL Blood 06/18/2024 5:57 PM CDT 06/18/2024 5:57 PM CDT Parviz Hannon MD PhD LAB POCT ORDERABLES - DEVICE Final Result Performing Organization Address [facility] Co de Phone Number [facility] [place] [address] * (ABNORMAL) POCT glucose (06/18/2024 11:21 AM CDT) Glucose, POC 216(H) 70 - 199 mg/dL Comment:Glu2: RN/MD Notified Glucose comment 1 Glu2: RN/MD Notified [facility] Blood 06/18/2024 11:2 1 AM CDT 06/18/2024 11:21 AM CDT Parviz Hannon MD PhD LAB POCT ORDERABLES - DEVICE Final Result Performing Organization Address City/[facility]/[place] [address] * POCT glucose (06/18/2024 7:10 AM CDT) Glucose, POC 129 70 - 199 mg/dL Blood 06/18/2024 7:10 AM CDT 06/18/2024 7:10 AM CDT Parviz Hannon MD PhD LAB POCT ORDERABLES - DEVICE Final Result Performing Organization Address City/[facility] Co de Phone Number [facility] [place] [address] * POCT glucose (06/18/2024 5:09 AM CDT) Glucose, POC 125 70 - 199 mg/dL Blood 06/18/2024 5:09 AM CDT 06/18/2024 5:09 AM CDT Parviz Hannon MD PhD LAB POCT ORDERABLES - DEVICE Final Result Performing Organization Address City/[facility] Co de Phone Number [facility] [place] [address] * POCT glucose (06/18/2024 3:57 AM CDT) Glucose, POC 76 70 - 199 mg/dL Blood 06/18/2024 3:57 AM CDT 06/18/2024 3:57 AM CDT us Parviz Hannon MD PhD LAB POCT ORDERABLES - DEVICE Final Result Performing Organization Address City/State/[facility] Co wi Phone Number [facility] [place] [address] * eGFR (06/18/2024 3:56 AM CDT) Pathologist [facility] eGFR [...] interpretive data was last reviewed 2021. Blood 06/18/2024 3:56 AM CDT 06/18/2024 4:11 AM CDT us Anthony Grace MD LAB BLOOD ORDERABLES Final Result Performing Organization Address City/[facility]/ZIP Co de Phone Number [facility]ULEMA DENT Daniela [facility] [place] [address] * (ABNORMAL) Manual Differential (06/18/2024 3:56 AM CDT) Differential Manual Cells Counted 114 [facility] Neutrophil abs 25.2(H) 1.5 - 6.5 K/cumm [facility] Imm gran abs 0.0 0.0 - 0.1 K/cumm [facility] Lymphocyte abs 1.2 0.8 - 3.3 K/cumm [facility] Monocyte abs 1.5(H) 0.2 - 0.8 K/cumm [facility] Neutrophil pct 90.3 % [facility] Comment: Interpretive Data Percent cell count reference ranges are not reported, since discordance with absolute values may lead to misinterpretation of CBC data. Current Interpretive Data was last revised on 2018. Lymphocyte pct 4.4 % [facility] Comment: Interpretive Data Percent cell count reference ranges are not reported, since discordance with absolute values may lead to misinterpretation of CBC data. Current Interpretive Data was last revised on 2018. Monocyte pct 5.3 % [facility] Comment: Interpretive Data Percent cell count reference ranges are not reported, since discordance with absolute values may lead to misinterpretation of CBC data. Current Interpretive Data was last revised on 2018. RBC morphology Present(A) [facility] Anisocytosis Marked(A) [facility] Macrocytes > 15/HPF(A) [facility] Platelet estimate Adequate [facility] Blood 06/18/2024 3:56 AM CDT 06/18/2024 4:11 AM CDT Anthony Grace MD LAB BLOOD ORDERABLES Edited Result - Final Performing Organization Address City/[facility]/ZIP Co de Phone Number ZULEMA DENT Daniela [facility] Department [place] [address] * (ABNORMAL) CBC without differential (06/18/2024 3:56 AM CDT) WBC 27.9(H) 3.8 - 9.9 K/cumm Hgb 9.3(L) 13.0 - 17.5 g/dL [facility] Hct 28.6(L) 38.9 - 50.3 % [facility] Plt 377 150 - 400 K/cumm [facility] MPV 10.1 9.1 - 12.3 fL [facility] RBC 2.79(L) 4.30 - 5.80 M/cumm [facility] MCV 102.5(H) 81.3 - 96.4 fL [facility] MCH 33.3 27.1 - 33.3 pg [facility] MCHC 32.5 32.3 - 35.7 g/dL [facility] RDW CV 15.5(H) 11.1 - 14.9 % [facility] RDW SD 58.1(H) 35.7 - 48.1 fL [facility] NRBC abs 0.04(H) 0.00 - 0.01 K/cumm [facility] Blood 06/18/2024 3:56 AM CDT 06/18/2024 4:11 AM CDT us Anthony Grace MD LAB BLOOD ORDERABLES Final Result Performing Organization Address [facility] de Phone Number [facility] [place] [address] * Lactate dehydrogenase (LD) (06/18/2024 3:56 AM CDT) Lactate dehydrogenase (LDH) 238 100 - 250 Units/L Blood 06/18/2024 3:56 AM CDT 06/18/2024 4:11 AM CDT Narrative [facility] - 06/18/2024 4:44 AM CDT Saturday and only. Morning draw. us Parviz Hannon MD PhD LAB BLOOD ORDERABLES Final Result [facility] [place] [address] * Uric acid (06/18/2024 3:56 AM CDT) [facility] Uric acid 3.2 3.0 - 8.0 mg/dL Blood 06/18/2024 3:56 AM CDT 06/18/2024 4:11 AM CDT [facility] - 06/18/2024 4:44 AM CDT Saturday and only. Morning draw. . Parviz Hannon MD PhD LAB BLOOD ORDERABLES Final Result Performing Organization Address [facility] de Phone Number [facility] [place] [address] * (ABNORMAL) Comprehensive metabolic panel (06/18/2024 3:56 AM CDT) [facility] Sodium 141 135 - 145 mmol/L Potassium, pl 3.4 3.3 - 4.9 mmol/L [facility] Chloride 104 97 - 110 mmol/L [facility] CO2 28 22 - 32 mmol/L [facility] Anion gap 9 2 - 15 mmol/L [facility] BUN 22 6 - 25 mg/dL [facility] Creatinine 0.91 0.80 - 1.30 mg/dL [facility] Glucose 70 70 - 199 mg/dL [facility] Comment: Interpretive Data Fasting glucose >/= 126 [...] interpretive data was last revised 2022. Calcium 9.2 8.5 - 10.3 mg/dL [facility] Bilirubin, total 0.2 0.1 - 1.2 mg/dL [facility] Protein, pl 8.1 6.5 - 8.5 g/dL [facility] Albumin 3.4(L) 3.5 - 5.0 g/dL [facility] Alk phos 273(H) 40 - 130 Units/L [facility] ALT 29 7 - 55 Units/L [facility] AST 46 10 - 50 Units/L [facility] Blood 06/18/2024 3:56 AM CDT 06/18/2024 4:11 AM CDT Narrative [facility] - 06/18/2024 4:44 AM CDT Saturday and only. Morning draw. Parviz Hannon MD PhD LAB BLOOD ORDERABLES Final Result Performing Organization Address City/[facility]/ZIP Co de Phone Number [facility] [place] [address] * Type and screen (06/18/2024 3:56 AM CDT) Ursula, indirect Negative ABO Rh A Positive [facility] Blood 06/18/2024 3:56 AM CDT 06/18/2024 4:08 AM CDT Narrative [facility] - 06/18/2024 5:35 AM CDT Has the patient had Daratumumab or Isatuximab in the past 6 months?->Unknown Parviz Hannon MD PhD LAB BLOOD BANK TEST ORDERABLES Final Result [facility] [place] [address] * (ABNORMAL) Phosphorus (06/18/2024 3:56 AM CDT) Phosphorus, pl 2.1(L) 2.3 - 4.5 mg/dL Blood 06/18/2024 3:56 AM CDT 06/18/2024 4:11 AM CDT Parviz Hannon MD PhD LAB BLOOD ORDERABLES Final Result Performing Organization Address [facility] de Phone Number [facility] [place] [address] * Magnesium (06/18/2024 3:56 AM CDT) Magnesium 2.1 1.4 - 2.5 mg/dL Blood 06/18/2024 3:56 AM CDT 06/18/2024 4:11 AM CDT Parviz Hannon MD PhD LAB BLOOD ORDERABLES Final Result Performing Organization Address [facility] de Phone Number [facility] [place] [address] * (ABNORMAL) POCT glucose (06/18/2024 12:04 AM CDT) Glucose, POC 337(H) 70 - 199 mg/dL Blood 06/18/2024 12:0 4 AM CDT 06/18/2024 12:04 AM CDT Parviz Hannon MD PhD LAB POCT ORDERABLES - DEVICE Final Result Performing Organization Address [facility] de Phone Number [facility] [place] [address] * (ABNORMAL) POCT glucose (06/17/2024 11:15 PM CDT) Glucose, POC 335(H) 70 - 199 mg/dL Comment:Glu2: RN/MD Notified Glucose comment 1 Glu2: RN/MD Notified [facility] Blood 06/17/2024 11:1 5 PM CDT 06/17/2024 11:15 PM CDT us Parviz Hannon MD PhD LAB POCT ORDERABLES - DEVICE Final Result Performing Organization Address [facility] Co de Phone Number [facility] [place] [address] * (ABNORMAL) Vancomycin level trough Draw trough 30 minutes prior to 4th dose. (06/17/2024 11:15 PM CDT) Pathologist [facility] Vancomycin trough 21.2(H) 10.0 - 20.0 mcg/mL Blood 06/17/2024 11:1 5 PM CDT 06/17/2024 11:33 PM CDT Narrative [facility] - 06/18/2024 12:03 AM CDT Draw trough 30 minutes prior to 4th dose. us Lluvia Arguello CONFERENCE DIRECTOR LAB BLOOD ORDERABLES Final R esult Performing Organization Address [facility] Co de Phone Number [facility] [place] [address] * (ABNORMAL) POCT glucose (06/17/2024 10:06 PM CDT) Pathologist [facility] Glucose, POC 475(C) 70 - 199 mg/dL Comment:Glu2: RN/MD Notified Glucose comment 1 Glu2: RN/MD Notified [facility] Blood 06/17/2024 10:0 6 PM CDT 06/17/2024 10:06 PM CDT us Parviz Hannon MD PhD LAB POCT ORDERABLES - DEVICE Final Result Performing Organization Address [facility] Co de Phone Number [facility] [place] [address] * Critical Result Callback Chemistry (06/17/2024 9:20 PM CDT) Date Notified [id number] Time Notified [id number] [facility] TestName Glucose [facility] Called/Read Back Yuriy [facility] Credentials RN [facility] Called By mesha [facility] Blood 06/17/2024 9:20 PM CDT 06/17/2024 9:32 PM CDT us Kurt Stephenson CONFERENCE DIRECTOR LAB BLOOD ORDERABLES Final R esult [facility] [place] [address] * eGFR (06/17/2024 9:20 PM CDT) eGFR >90 >=60 mL/min/1. 73 [...] interpretive data was last reviewed 2021. Blood 06/17/2024 9:20 PM CDT 06/17/2024 9:32 PM CDT us Kurt Stephenson CONFERENCE DIRECTOR LAB BLOOD ORDERABLES Final R esult [facility] [place] [address] * (ABNORMAL) Basic metabolic panel (06/17/2024 9:20 PM CDT) [facility] Sodium 139 135 - 145 mmol/L Potassium, pl 3.4 3.3 - 4.9 mmol/L [facility] Chloride 102 97 - 110 mmol/L [facility] CO2 26 22 - 32 mmol/L [facility] Anion gap 11 2 - 15 mmol/L [facility] BUN 20 6 - 25 mg/dL [facility] Creatinine 0.91 0.80 - 1.30 mg/dL [facility] Glucose 462(C) 70 - 199 mg/dL [facility] Comment: reviewed Interpretive Data Fasting glucose >/= 126 mg/dl [...] 2022. Calcium 8.7 8.5 - 10.3 mg/dL [facility] Blood 06/17/2024 9:20 PM CDT 06/17/2024 9:32 PM CDT us Kurt Stephenson CONFERENCE DIRECTOR LAB BLOOD ORDERABLES Final R esult [facility] [place] [address] * (ABNORMAL) POCT glucose (06/17/2024 8:51 PM CDT) Glucose, POC 519(C) 70 - 199 mg/dL Comment:Glu2: Glucose comment 1 Glu2: [facility] Blood 06/17/2024 8:51 PM CDT 06/17/2024 8:51 PM CDT Parviz Hannon MD PhD LAB POCT ORDERABLES - DEVICE Final Result Performing Organization Address [facility] Co de Phone Number [facility] [place] [address] * (ABNORMAL) POCT glucose (06/17/2024 8:49 PM CDT) Glucose, POC 456(C) 70 - 199 mg/dL Comment:Glu2: RN/MD Notified Glucose comment 1 Glu2: RN/MD Notified [facility] Blood 06/17/2024 8:49 PM CDT 06/17/2024 8:49 PM CDT Parviz Hannon MD PhD LAB POCT ORDERABLES - DEVICE Final Result Performing Organization Address [facility] de Phone Number [facility] [place] [address] * (ABNORMAL) POCT glucose (06/17/2024 4:00 PM CDT) Glucose, POC 294(H) 70 - 199 mg/dL Comment:Glu2: RN/MD Notified Glucose comment 1 Glu2: RN/MD Notified [facility] Blood 06/17/2024 4:00 PM CDT 06/17/2024 4:00 PM CDT Parviz Hannon MD PhD LAB POCT ORDERABLES - DEVICE Final Result Performing Organization Address City/[facility] Co de Phone Number [facility] [place] [address] * POCT glucose (06/17/2024 11:33 AM CDT) Glucose, POC 133 70 - 199 mg/dL [facility] Blood 06/17/2024 11:3 3 AM CDT 06/17/2024 11:33 AM CDT Parviz Hannon MD PhD LAB POCT ORDERABLES - DEVICE Final Result Performing Organization Address [facility] de Phone Number [facility] [place] [address] * Tacrolimus level trough (06/17/2024 8:30 AM CDT) Pathologist [facility] Tacrolimus trough <1.0 ng/mL Comment: Undetectable. ??Please verify that the correct immunosuppressant test was requested. Interpretive Data Testing performed by liquid chromatography-tandem mass spectrometry. ??Therapeutic concentrations vary depending on type of transplanted organ and time elapsed since transplant. ??Typical trough concentrations range from 5-15 ng/mL. ??This test was developed and its performance characteristics determined by the [facility] consistent with CLIA requirements. ??This test has not been cleared or approved by the [place] Food and Drug administration. ??Current interpretive data last reviewed 2020. Blood 06/17/2024 8:30 AM CDT 06/17/2024 8:55 AM CDT us Kirt Hernandez MD PhD LAB BLOOD ORD ERABLES Final Result Performing Organization Address [facility] de Phone Number [facility] [place] [address] * (ABNORMAL) POCT glucose (06/17/2024 7:10 AM CDT) Glucose, POC 206(H) 70 - 199 mg/dL Comment:Glu2: RN/ Notified Glucose comment 1 Glu2: RN/ Notified [facility] Blood 06/17/2024 7:10 AM CDT 06/17/2024 7:10 AM CDT us Parviz Hannon MD PhD LAB POCT ORDERABLES - DEVICE Final Result Performing Organization Address [facility] de Phone Number ZULEMA DENT Daniela [facility] Department [place] [address] * eGFR (06/17/2024 4:05 AM CDT) eGFR >90 >=60 mL/min/1. 73 [...] interpretive data was last reviewed 2021. Blood 06/17/2024 4:05 AM CDT 06/17/2024 4:25 AM CDT us Anthony Grace MD LAB BLOOD ORDERABLES Final Result Performing Organization Address [facility] Co de Phone Number ZULEMA DENT Daniela [facility] Department [place] [address] * (ABNORMAL) Manual Differential (06/17/2024 4:05 AM CDT) Pathologist [facility] Differential Manual Cells Counted 116 [facility] Neutrophil abs 26.8(H) 1.5 - 6.5 K/cumm [facility] Imm gran abs 0.2(H) 0.0 - 0.1 K/cumm [facility] Lymphocyte abs 0.0(L) 0.8 - 3.3 K/cumm [facility] Monocyte abs 0.2 0.2 - 0.8 K/cumm [facility] Neutrophil pct 98.2 % [facility] Comment: Interpretive Data Percent cell count reference ranges are not reported, since discordance with absolute values may lead to misinterpretation of CBC data. Current Interpretive Data was last revised on 2018. Monocyte pct 0.9 % [facility] Comment: Interpretive Data Percent cell count reference ranges are not reported, since discordance with absolute values may lead to misinterpretation of CBC data. Current Interpretive Data was last revised on 2018. Promyelocyte pct 0.9 % [facility] RBC morphology Present(A) [facility] Anisocytosis Marked(A) [facility] Macrocytes > 15/HPF(A) [facility] Platelet estimate Adequate [facility] Blood 06/17/2024 4:05 AM CDT 06/17/2024 4:26 AM CDT us Anthony Grace MD LAB BLOOD ORDERABLES Edited Result - Final ZULEMA DENT [facility] Department [place] [address] * (ABNORMAL) CBC without differential (06/17/2024 4:05 AM CDT) Pathologist [facility] WBC 27.3(H) 3.8 - 9.9 K/cumm Hgb 9.4(L) 13.0 - 17.5 g/dL [facility] Hct 29.2(L) 38.9 - 50.3 % [facility] Plt 409(H) 150 - 400 K/cumm [facility] MPV 10.2 9.1 - 12.3 fL [facility] RBC 2.84(L) 4.30 - 5.80 M/cumm [facility] MCV 102.8(H) 81.3 - 96.4 fL [facility] MCH 33.1 27.1 - 33.3 pg [facility] MCHC 32.2(L) 32.3 - 35.7 g/dL [facility] RDW CV 14.9 11.1 - 14.9 % [facility] RDW SD 56.4(H) 35.7 - 48.1 fL [facility] NRBC abs 0.00 0.00 - 0.01 K/cumm [facility] Blood 06/17/2024 4:05 AM CDT 06/17/2024 4:26 AM CDT Anthony Grace MD LAB BLOOD ORDERABLES Final Result [facility] Department [place] [address] * (ABNORMAL) Basic metabolic panel (06/17/2024 4:05 AM CDT) Sodium 138 135 - 145 mmol/L Potassium, pl 4.6 3.3 - 4.9 mmol/L [facility] Comment:Hemolyzed; Potassium value may be falsely elevated by as much as 0.6-1.0 mmol/L. Suggest redraw and reanalysis. Chloride 101 97 - 110 mmol/L [facility] CO2 28 22 - 32 mmol/L [facility] Anion gap 9 2 - 15 mmol/L [facility] BUN 17 6 - 25 mg/dL [facility] Creatinine 0.88 0.80 - 1.30 mg/dL [facility] Glucose 202(H) 70 - 199 mg/dL [facility] Comment: Interpretive Data Fasting glucose >/= 126 [...] interpretive data was last revised 2022. Calcium 8.5 8.5 - 10.3 mg/dL [facility] Blood 06/17/2024 4:05 AM CDT 06/17/2024 4:25 AM CDT Narrative [facility] - 06/17/2024 4:51 AM CDT Daily except Saturday and . Morning draw. Parviz Hannon MD PhD LAB BLOOD ORDERABLES Final Result Performing Organization Address City/[facility]/ZIP Co de Phone Number [facility] Department [place] [address] * Phosphorus (06/17/2024 4:05 AM CDT) Phosphorus, pl 2.5 2.3 - 4.5 mg/dL Blood 06/17/2024 4:05 AM CDT 06/17/2024 4:25 AM CDT Parviz Hannon MD PhD LAB BLOOD ORDERABLES Final Result [facility] [place] [address] * Magnesium (06/17/2024 4:05 AM CDT) Magnesium 2.2 1.4 - 2.5 mg/dL Blood 06/17/2024 4:05 AM CDT 06/17/2024 4:25 AM CDT Parviz Hannon MD PhD LAB BLOOD ORDERABLES Final Result Performing Organization Address [facility] [place] [address] * (ABNORMAL) POCT glucose (06/17/2024 3:36 AM CDT) Glucose, POC 222(H) 70 - 199 mg/dL Blood 06/17/2024 3:36 AM CDT 06/17/2024 3:36 AM CDT Parviz Hannon MD PhD LAB POCT ORDERABLES - DEVICE Final Result Performing Organization Address [facility] [place] [address] * (ABNORMAL) POCT glucose (06/16/2024 11:23 PM CDT) Glucose, POC 224(H) 70 - 199 mg/dL Blood 06/16/2024 11:2 3 PM CDT 06/16/2024 11:23 PM CDT us Parviz Hannon MD PhD LAB POCT ORDERABLES - DEVICE Final Result Performing Organization Address [facility] Co de Phone Number [facility] [place] [address] * POCT glucose (06/16/2024 7:17 PM CDT) Glucose, POC 174 70 - 199 mg/dL Blood 06/16/2024 7:17 PM CDT 06/16/2024 7:17 PM CDT us Parviz Hannon MD PhD LAB POCT ORDERABLES - DEVICE Final Result Performing Organization Address [facility] Co de Phone Number [facility] [place] [address] * POCT glucose (06/16/2024 5:46 PM CDT) Glucose, POC 157 70 - 199 mg/dL Blood 06/16/2024 5:46 PM CDT 06/16/2024 5:46 PM CDT Parviz Hannon MD PhD LAB POCT ORDERABLES - DEVICE Final Result ZULEMA DENT [facility] [place] [address] * eGFR (06/16/2024 4:43 PM CDT) eGFR >90 >=60 mL/min/1. 73 [...] interpretive data was last reviewed 2021. Blood 06/16/2024 4:43 PM CDT 06/16/2024 5:01 PM CDT Fadia Red CONFERENCE DIRECTOR LAB BLOOD ORDERABLES Final Result Performing Organization Address City/[facility]/ZIP Co de Phone Number [facility] Department [place] [address] * Basic metabolic panel (06/16/2024 4:43 PM CDT) Pathologist [facility] Sodium 137 135 - 145 mmol/L Comment:Repeated and Verifie d Potassium, pl 4.9 3.3 - 4.9 mmol/L [facility] Chloride 101 97 - 110 mmol/L [facility] Comment:Repeated and Verifie d CO2 29 22 - 32 mmol/L [facility] Anion gap 7 2 - 15 mmol/L [facility] Comment:Repeated and Verifie d BUN 14 6 - 25 mg/dL [facility] Creatinine 0.97 0.80 - 1.30 mg/dL [facility] Glucose 143 70 - 199 mg/dL [facility] Comment: Interpretive Data Fasting glucose >/= 126 [...] interpretive data was last revised 2022. Calcium 8.9 8.5 - 10.3 mg/dL [facility] Blood 06/16/2024 4:43 PM CDT 06/16/2024 5:01 PM CDT Fadia Red CONFERENCE DIRECTOR LAB BLOOD ORDERABLES Final Result Performing Organization Address [facility]/ZIP Co de Phone Number [facility] [place] [address] * POCT glucose (06/16/2024 4:42 PM CDT) Glucose, POC 156 70 - 199 mg/dL Blood 06/16/2024 4:42 PM CDT 06/16/2024 4:42 PM CDT Parviz Hannon MD PhD LAB POCT ORDERABLES - DEVICE Final Result Performing Organization Address [facility] de Phone Number [facility] [place] [address] * (ABNORMAL) Fentanyl Confirmation, Urine (06/16/2024 4:03 PM CDT) Pathologist [facility] Fentanyl Conf, Ur Confirmed Positive(A) Cutoff 0.3ng/mL Acetylfentanyl Conf, Ur Does Not Confirm Cutoff 1 ng/mL [facility] Acrylfentanyl Conf, Ur Does Not Confirm Cutoff 1 ng/mL [facility] Furanylfentanyl Conf, Ur Does Not Confirm Cutoff 1 ng/mL [facility] Fentanyl Metabolite (Norfentanyl) Conf, Ur Confirmed Positive(A) CutOff 5 ng/mL [facility] Xylazine MS Does Not Confirm Cutoff 1 ng/mL [facility] Comment: Interpretive Data This test detects the presence or absence of drug compounds using LC Tandem mass spectrometry and is not intended to assess compliance with prescribed medications. While this test is highly specific, false positive and false negative results may occur in very rare circumstances. Contact the laboratory for consultation, if needed. Performance characteristics were determined by the [facility] in a manner consistent with CLIA requirement and has not been cleared or approved by the U.S. Food and Drug Administration. Current interpretive data was last revised 2021. Urine 06/16/2024 4:03 PM CDT 06/16/2024 5:29 PM CDT us Fadia Red CONFERENCE DIRECTOR LAB URINE ORDERABLES Final Result Performing Organization Address [facility]/ZIP Co de Phone Number [facility] Department [place] [address] * (ABNORMAL) Drugs of Abuse Screen, Urine with Reflex Confirmation (06/16/2024 4:03 PM CDT) Pathologist [facility] Amphetamine, ur Not Detected CutOff 500ng/mL Comment: Interpretive Data - Amphetamines: ??Samples containing greater than 500 ng/mL d-methamphetamine ??or other cross-reacting amphetamine compounds are reported as positive. ??Amphetamine immunoassays are subject to significant false positive rates due to cross-reactivity of non-amphetamine drugs. Confirmatory testing required for definitive results. Current Interpretive Data was last reviewed 2023. Barbiturates, ur Not Detected CutOff 200ng/mL [facility] Comment: Interpretive Data - Barbiturates: ??Samples containing greater than 200 ng/mL secobarbital or other cross-reacting barbiturate compounds are reported as positive. ??False positive and false negative results are possible. Confirmatory testing required for definitive results. Current Interpretive Data was last reviewed 2023. Benzodiazepines, ur Screen Positive, presumptive (A) CutOff 100ng/mL [facility] Comment: Interpretive Data - Benzodiazepines: ??Samples containing greater than 100 ng/mL nordiazepam or other cross-reacting compounds are reported as positive. False positive and false negative results are possible. Confirmatory testing required for definitive results. Current Interpretive Data was last reviewed 2023. Cannabinoids, ur Not Detected CutOff 50 ng/mL [facility] Comment: Interpretive Data - Cannabinoids: ??Samples containing greater than 50 ng/mL delta-9 THC -COOH or other cross-reacting compounds are reported as positive. ??False positive and false negative results are possible. ??Confirmatory testing required for definitive results. Current Interpretive Data was last reviewed 2023. Cocaine, ur Not Detected CutOff 150ng/mL [facility] Comment: Interpretive Data - Cocaine: ??Samples containing greater than 150 ng/mL benzoylecgonine or other cross-reacting compounds are reported as positive. False positive and false negative results are possible. Confirmatory testing required for definitive results. Current Interpretive Data was last reviewed 2023. Fentanyl, Ur Screen Positive, presumptive (A) CutOff 5 ng/mL [facility] Comment: Interpretive Data - Fentanyl: ?? Samples containing greater than 5 ng/mL norfentanyl, fentanyl, or other cross-reacting fentanyl compounds are reported as positive. False positive and false negative results are possible. Confirmatory testing required for definitive results. Current Interpretive Data was last reviewed 2024. Methadone, ur Not Detected CutOff 300ng/mL [facility] Comment: Interpretive Data - Methadone: ??Samples containing greater than 300 ng/mL d,l-methadone or other cross-reacting compounds are reported as positive. ??False positive and false negative results are possible. Confirmatory testing required for definitive results. Current Interpretive Data was last reviewed 2023. Opiates, ur Not Detected CutOff 300ng/mL [facility] Comment: Interpretive Data - Opiates: ??Samples containing greater than 300 ng/mL morphine or other cross-reacting compounds are reported as positive. ??False positive and false negative results are possible. Confirmatory testing required for definitive results. Current Interpretive Data was last reviewed 2023. Oxycodone, ur Not Detected CutOff 100ng/mL [facility] Comment: Interpretive Data - Oxycodone: ??Samples containing greater than 100 ng/mL oxycodone or other cross-reacting compounds are reported as ??positive. ??False positive and false negative results are possible. Confirmatory testing required for definitive results. Current Interpretive Data was last reviewed 2023. Phencyclidine, ur Not Detected CutOff 25 ng/mL [facility] Comment: Interpretive Data - Phencyclidine: ??Samples containing greater than 25 ng/mL phencyclidine or other cross-reacting compounds are reported as positive. ??False positive and false negative results are possible. Confirmatory testing required for definitive results. Current Interpretive Data was last reviewed 2023. Urine Creatinine 66 mg/dL [facility] Comment: Interpretive Data Urine Creatinine: < 10 mg/dL is extremely dilute = or > 10 but < 20 mg/dL is dilute = or > 20 mg/dL is normal Current Interpretive Data was last revised on 2018. Urine 06/16/2024 4:03 PM CDT 06/16/2024 5:29 PM CDT Narrative [facility] - 06/16/2024 6:02 PM CDT Drug of Abuse screening is performed by immunoassay for medical purposes only. ??This is not to be used for Pain Management purposes. ??If Detected, confirmation testing will be performed for Amphetamines, Cocaine, Fentanyl, Methadone, Opiates, Oxycodone or Phencyclidine. Fadia Red NP LAB URINE ORDERABLES Final Result Performing Organization Address [facility] Co de Phone Number [facility] Department [place] [address] * Urinalysis reflex to microscopic and culture Urine (06/16/2024 4:03 PM CDT) Color, ur Straw Yellow Clarity, ur Clear Clear [facility] Specific gravity, ur 1.019 1.003 - 1.030 [facility] pH, urine 6.0 [facility] Comment: Interpretive Data ? Urine pH is affected by diet, medications, systemic acid-base disturbances, and renal tubular function. ??pH may affect urinary stone formation. ??For example, urine pH below 6.0 may help reduce the tendency for calcium phosphate stones and pH greater than 6.0 may reduce the tendency for uric acid stone formation. Source: [facility] Current Interpretive Data was last revised on 2017 Protein, ur ql Negative Negative [facility] Glucose, ur ql Negative Negative [facility] Ketones, ur Negative Negative [facility] Bilirubin, ur Negative Negative [facility] Blood, ur Negative Negative [facility] Urobilinogen, ur <2.0 <2.0 mg/dL [facility] Nitrite, ur Negative Negative [facility] Leukocyte esterase, ur Negative Negative [facility] UA reflex comment Reflex conditions for microscopic UA and culture not met. [facility] Urine 06/16/2024 4:03 PM CDT 06/16/2024 5:19 PM CDT us Fadia Red NP LAB MICROBIOLOGY - GENERAL ORDERABLES Final Result Performing Organization Address [facility]/ZIP Co de Phone Number [facility] [place] [address] * (ABNORMAL) CBC without differential (06/16/2024 3:06 PM CDT) WBC 15.8(H) 3.8 - 9.9 K/cumm Hgb 8.6(L) 13.0 - 17.5 g/dL [facility] Hct 26.9(L) 38.9 - 50.3 % [facility] Plt 324 150 - 400 K/cumm [facility] MPV 10.7 9.1 - 12.3 fL [facility] RBC 2.56(L) 4.30 - 5.80 M/cumm [facility] MCV 105.1(H) 81.3 - 96.4 fL [facility] MCH 33.6(H) 27.1 - 33.3 pg [facility] MCHC 32.0(L) 32.3 - 35.7 g/dL [facility] RDW CV 14.9 11.1 - 14.9 % [facility] RDW SD 57.6(H) 35.7 - 48.1 fL [facility] NRBC abs 0.00 0.00 - 0.01 K/cumm [facility] Blood 06/16/2024 3:06 PM CDT 06/16/2024 3:31 PM CDT Rukhsana Nunez NP LAB BLOOD ORDERABLES F inal Result [facility] [place] [address] * Critical Result Callback Chemistry (06/16/2024 3:05 PM CDT) Date Notified [id number] Time Notified 16[facility] TestName Sodium, Glucose [facility] Called/Read Back Lupis Beam [facility] Credentials RN [facility] Called By KG [facility] Blood 06/16/2024 3:05 PM CDT 06/16/2024 3:31 PM CDT us Rukhsana Nunez NP LAB BLOOD ORDERABLES F inal Result ZULEMA BJMaddie [facility] [place] [address] * eGFR (06/16/2024 3:05 PM CDT) eGFR See Comment >=60 Comment: Credited: Sample investigated and is suggestive of an improper collection (e.g., IV fluid contamination, improper tube type). Deleted at the Request of Lupis CARLOS) on 06/16/2024 16:40:25 CDT by KG . Interpretive Data Reference Interval Normal ?>/= 90 [...] interpretive data was last reviewed 2021. Blood 06/16/2024 3:05 PM CDT 06/16/2024 3:31 PM CDT us Rukhsana Nunez NP LAB BLOOD ORDERABLES E dited Result - Final Performing Organization Address City/[facility]/ZIP Co de Phone Number ZULEMA DENT Daniela [facility] Department [place] [address] * Blood culture Blood (06/16/2024 3:05 PM CDT) Report Final Report: No growth Blood 06/16/2024 3:05 PM CDT 06/16/2024 4:07 PM CDT Narrative ZULEMA DENT - 06/21/2024 7:01 AM CDT From a different site than #1. Collection->Peripheral 1. ?Blood cultures are incubated for [...] organism identification may be performed using the [employer] BVigene Gram-Positive Blood Culture Assay. This assay detects microbial DNA in positive blood culture broth via hybridization of target DNA to capture oligonucleotides on a microarray. This assay has been cleared by the [place] Food and Drug Administration and its performance characteristics have been verified by the [facility]. 5. ?For questions about this culture, contact the Microbiology Laboratory at [phone]. Interpretive data was last revised on 2020. Rukhsana Nunez NP LAB MICROBIOLOGY - GEN ERAL ORDERABLES Final Result Performing Organization Address City/[facility]/ZIP Co de Phone Number ZULEMA DENT [facility] Department [place] [address] * Blood culture Blood (06/16/2024 3:05 PM CDT) Report Final Report: No growth Blood 06/16/2024 3:05 PM CDT 06/16/2024 4:07 PM CDT Narrative ZULEMA DENT - 06/21/2024 7:00 AM CDT Collection->Peripheral 1. ?Blood cultures are incubated for [...] organism identification may be performed using the [employer]igene Gram-Positive Blood Culture Assay. This assay detects microbial DNA in positive blood culture broth via hybridization of target DNA to capture oligonucleotides on a microarray. This assay has been cleared by the [place] Food and Drug Administration and its performance characteristics have been verified by the [facility]. 5. ?For questions about this culture, contact the Microbiology Laboratory at [phone]. Interpretive data was last revised on 2020. Rukhsana Nunez NP LAB MICROBIOLOGY - GEN ERAL ORDERABLES Final Result [facility]MA DENT [facility] [place] [address] * Troponin I high-sensitivity (06/16/2024 3:05 PM CDT) Trop I hs <4 <=35 ng/L Comment: Interpretive Data For further hscTnI resources including the diagnostic algorithm and an aid in interpretation, copy and paste this link: https://bjhlab.testcatalog.org/show/[email or web address] Current Interpretive Data last revised 2020. Blood 06/16/2024 3:05 PM CDT 06/16/2024 3:32 PM CDT us Rukhsana Nunez CONFERENCE DIRECTOR LAB BLOOD ORDERABLES F inal Result [facility] [place] [address] * Pro B-type natriuretic peptide (06/16/2024 3:05 PM CDT) NT-proBNP See Comment <=300 pg/mL Comment: Sample investigated and found to be analytically accurate. If results do not match clinical presentation, improper collection (e.g., IV fluid contamination, improper tube type, mislabel) should be considered and re-collection recommended. Credited: Sample investigated and is suggestive of an improper collection (e.g., IV fluid contamination, improper tube type). Deleted at the Request of Lupis CARLOS) on 06/16/2024 16:40:25 CDT by KG . Interpretive Comments: A. Dyspnea in Acute Care [...] Interpretive Data Last Revised Date: 2018. Blood 06/16/2024 3:05 PM CDT 06/16/2024 3:31 PM CDT Rukhsana Nunez NP LAB BLOOD ORDERABLES E dited Result - Final Performing Organization Address City/State/[facility] Co de Phone Number [facility] [place] [address] * Comprehensive metabolic panel (06/16/2024 3:05 PM CDT) Sodium See Comment 135 - 145 mmol/L Comment: Repeated and Verified Telephone report made to: Lupis CARLOS) on 06/16/2024 16:36:32 CDT by KG . Sample investigated and found to be analytically accurate. If results do not match clinical presentation, improper collection (e.g., IV fluid contamination, improper tube type, mislabel) should be considered and re-collection recommended. Credited: Sample investigated and is suggestive of an improper collection (e.g., IV fluid contamination, improper tube type). Deleted at the Request of Lupis CARLOS) on 06/16/2024 16:40:25 CDT by KG . Potassium, pl See Comment 3.3 - 4.9 mmol/L [facility] Comment: Sample investigated and found to be analytically accurate. If results do not match clinical presentation, improper collection (e.g., IV fluid contamination, improper tube type, mislabel) should be considered and re-collection recommended. Credited: Sample investigated and is suggestive of an improper collection (e.g., IV fluid contamination, improper tube type). Deleted at the Request of Lupis CARLOS) on 06/16/2024 16:40:25 CDT by KG . Chloride See Comment 97 - 110 mmol/L [facility] Comment: Repeated and Verified Sample investigated and found to be analytically accurate. If results do not match clinical presentation, improper collection (e.g., IV fluid contamination, improper tube type, mislabel) should be considered and re-collection recommended. Credited: Sample investigated and is suggestive of an improper collection (e.g., IV fluid contamination, improper tube type). Deleted at the Request of Lupis CARLOS) on 06/16/2024 16:40:25 CDT by KG . CO2 See Comment 22 - 32 mmol/L [facility] Comment: Sample investigated and found to be analytically accurate. If results do not match clinical presentation, improper collection (e.g., IV fluid contamination, improper tube type, mislabel) should be considered and re-collection recommended. Credited: Sample investigated and is suggestive of an improper collection (e.g., IV fluid contamination, improper tube type). Deleted at the Request of Lupis CARLOS) on 06/16/2024 16:40:25 CDT by KG . Anion gap See Comment 2 - 15 mmol/L [facility] Comment: Sample investigated and found to be analytically accurate. If results do not match clinical presentation, improper collection (e.g., IV fluid contamination, improper tube type, mislabel) should be considered and re-collection recommended. Credited: Sample investigated and is suggestive of an improper collection (e.g., IV fluid contamination, improper tube type). Deleted at the Request of Lupis CARLOS) on 06/16/2024 16:40:25 CDT by KG . BUN See Comment 6 - 25 mg/dL [facility] Comment: Sample investigated and found to be analytically accurate. If results do not match clinical presentation, improper collection (e.g., IV fluid contamination, improper tube type, mislabel) should be considered and re-collection recommended. Credited: Sample investigated and is suggestive of an improper collection (e.g., IV fluid contamination, improper tube type). Deleted at the Request of Lupsi CARLOS) on 06/16/2024 16:40:25 CDT by KG . Creatinine See Comment 0.80 - 1.30 mg/dL [facility] Comment: Sample investigated and found to be analytically accurate. If results do not match clinical presentation, improper collection (e.g., IV fluid contamination, improper tube type, mislabel) should be considered and re-collection recommended. Credited: Sample investigated and is suggestive of an improper collection (e.g., IV fluid contamination, improper tube type). Deleted at the Request of Lupis CARLOS) on 06/16/2024 16:40:25 CDT by KG . Glucose See Comment 70 - 199 mg/dL [facility] Comment: Telephone report made to: Lupis CARLOS) on 06/16/2024 16:36:32 CDT by KG . Sample investigated and found to be analytically accurate. If results do not match clinical presentation, improper collection (e.g., IV fluid contamination, improper tube type, mislabel) should be considered and re-collection recommended. Credited: Sample investigated and is suggestive of an improper collection (e.g., IV fluid contamination, improper tube type). Deleted at the Request of Lupis CARLOS) on 06/16/2024 16:40:25 CDT by KG . Interpretive Data Fasting glucose >/= 126 mg/dl [...] interpretive data was last revised 2022. Calcium See Comment 8.5 - 10.3 mg/dL [facility] Comment: Sample investigated and found to be analytically accurate. If results do not match clinical presentation, improper collection (e.g., IV fluid contamination, improper tube type, mislabel) should be considered and re-collection recommended. Credited: Sample investigated and is suggestive of an improper collection (e.g., IV fluid contamination, improper tube type). Deleted at the Request of Lupis CARLOS) on 06/16/2024 16:40:25 CDT by KG . Bilirubin, total See Comment 0.1 - 1.2 mg/dL [facility] Comment: Sample investigated and found to be analytically accurate. If results do not match clinical presentation, improper collection (e.g., IV fluid contamination, improper tube type, mislabel) should be considered and re-collection recommended. Credited: Sample investigated and is suggestive of an improper collection (e.g., IV fluid contamination, improper tube type). Deleted at the Request of Lupis CARLOS) on 06/16/2024 16:40:25 CDT by KG . Protein, pl See Comment 6.5 - 8.5 g/dL [facility] Comment: Sample investigated and found to be analytically accurate. If results do not match clinical presentation, improper collection (e.g., IV fluid contamination, improper tube type, mislabel) should be considered and re-collection recommended. Credited: Sample investigated and is suggestive of an improper collection (e.g., IV fluid contamination, improper tube type). Deleted at the Request of Lupis CARLOS) on 06/16/2024 16:40:25 CDT by KG . Albumin See Comment 3.5 - 5.0 g/dL [facility] Comment: Sample investigated and found to be analytically accurate. If results do not match clinical presentation, improper collection (e.g., IV fluid contamination, improper tube type, mislabel) should be considered and re-collection recommended. Credited: Sample investigated and is suggestive of an improper collection (e.g., IV fluid contamination, improper tube type). Deleted at the Request of Lupis CARLOS) on 06/16/2024 16:40:25 CDT by KG . Alk phos See Comment 40 - 130 Units/L [facility] Comment: Sample investigated and found to be analytically accurate. If results do not match clinical presentation, improper collection (e.g., IV fluid contamination, improper tube type, mislabel) should be considered and re-collection recommended. Credited: Sample investigated and is suggestive of an improper collection (e.g., IV fluid contamination, improper tube type). Deleted at the Request of Lupis CARLOS) on 06/16/2024 16:40:25 CDT by KG . ALT See Comment 7 - 55 Units/L [facility] Comment: Sample investigated and found to be analytically accurate. If results do not match clinical presentation, improper collection (e.g., IV fluid contamination, improper tube type, mislabel) should be considered and re-collection recommended. Credited: Sample investigated and is suggestive of an improper collection (e.g., IV fluid contamination, improper tube type). Deleted at the Request of Lupis CARLOS) on 06/16/2024 16:40:25 CDT by KG . AST See Comment 10 - 50 Units/L [facility] Comment: Sample investigated and found to be analytically accurate. If results do not match clinical presentation, improper collection (e.g., IV fluid contamination, improper tube type, mislabel) should be considered and re-collection recommended. Credited: Sample investigated and is suggestive of an improper collection (e.g., IV fluid contamination, improper tube type). Deleted at the Request of Lupis CARLOS) on 06/16/2024 16:40:25 CDT by KG . Blood 06/16/2024 3:05 PM CDT 06/16/2024 3:31 PM CDT Rukhsana Nunez NP LAB BLOOD ORDERABLES E dited Result - Final [facility] Department [place] [address] * Lactate (06/16/2024 3:05 PM CDT) Pathologist [facility] Lactate 1.4 0.7 - 2.0 mmol/L Blood 06/16/2024 3:05 PM CDT 06/16/2024 3:31 PM CDT Rukhsana Nunez NP LAB BLOOD ORDERABLES F inal Result Performing Organization Address [facility] Phone Number [facility] [place] [address] * Phosphorus (06/16/2024 3:05 PM CDT) Pathologist [facility] Phosphorus, pl See Comment 2.3 - 4.5 mg/dL Comment: Sample investigated and found to be analytically accurate. If results do not match clinical presentation, improper collection (e.g., IV fluid contamination, improper tube type, mislabel) should be considered and re-collection recommended. Credited: Sample investigated and is suggestive of an improper collection (e.g., IV fluid contamination, improper tube type). Deleted at the Request of Lupis CARLOS) on 06/16/2024 16:40:25 CDT by KG . Blood 06/16/2024 3:05 PM CDT 06/16/2024 3:31 PM CDT Rukhsana Nunez NP LAB BLOOD ORDERABLES E dited Result - Final Performing Organization Address [facility] de Phone Number [facility] [place] [address] * Magnesium (06/16/2024 3:05 PM CDT) Pathologist [facility] Magnesium See Comment 1.4 - 2.5 mg/dL Comment: Sample investigated and found to be analytically accurate. If results do not match clinical presentation, improper collection (e.g., IV fluid contamination, improper tube type, mislabel) should be considered and re-collection recommended. Credited: Sample investigated and is suggestive of an improper collection (e.g., IV fluid contamination, improper tube type). Deleted at the Request of Lupis CARLOS) on 06/16/2024 16:40:25 CDT by KG . Blood 06/16/2024 3:05 PM CDT 06/16/2024 3:31 PM CDT Rukhsanakendall Nunez NP LAB BLOOD ORDERABLES E dited Result - Final [facility] Department [place] [address] * (ABNORMAL) POC Blood Gas and Chemistries, Arterial - (06/16/2024 2:45 PM CDT) pH, Art POC 7.28(L) 7.35 - 7.45 pCO2, Art POC 56(H) 35 - 45 mmHg [facility] pO2, Art POC 159(H) 83 - 108 mmHg [facility] Na, POC 138 135 - 145 mmol/L [facility] K POC 4.9 3.3 - 4.9 mmol/L [facility] Comment: Interpretive Data Not all point of care methods assess for hemolysis. Confirm with instrument and retest K+ if not consistent with clinical signs and symptoms. Current Interpretive Data was last revised on 2024. Cl, POC 106 97 - 110 mmol/L [facility] Ionized Ca, POC 4.91 4.50 - 5.10 mg/dL [facility] Glucose, POC 193 70 - 199 mg/dL [facility] Lactate, POC 1.3 0.7 - 2.2 mmol/L [facility] SO2 (juan josé) arterial 100(H) 90 - 95 % [facility] Base excess, POC -1.1 mmol/L [facility] HCO3, Art POC 26 20 - 30 mmol/L [facility] Hct, POC 33.0(L) 41.4 - 51.6 % [facility] Total Hb, POC 11.0(L) 13.8 - 17.2 g/dL [facility] Blood 06/16/2024 2:45 PM CDT 06/16/2024 2:45 PM CDT Kirt Hernandez MD PhD LAB POCT ORDE RABLES - DEVICE Final Result Performing Organization Address City/[facility]/ZIP Co de Phone Number [facility] Department [place] [address] * POCT glucose (06/16/2024 2:34 PM CDT) Glucose, POC 139 70 - 199 mg/dL Blood 06/16/2024 2:34 PM CDT 06/16/2024 2:34 PM CDT Kirt Hernandez MD PhD LAB POCT ORDE RABLES - DEVICE Final Result Performing Organization Address [facility] Co de Phone Number [facility] [place] [address] * XR Chest 1 View (06/16/2024 2:11 PM CDT) Anatomical Region Laterality Modality Body, Chest N/A Computed Radiogr aphy 06/16/2024 3:11 PM CDT Impressions 06/16/2024 3:42 PM CDT The current study is compared with the prior radiograph dated 06/15/2024. Increased lung volumes. ??There is large area of masslike consolidation with cavitation in the right upper lobe . ??This remains concerning either for a cavitary pneumonia including typical or atypical mycobacteria or a cavitary lung cancer. ??The cardiac mediastinal silhouette is unchanged. ??There is no pleural effusion or pneumothorax. Dictated by: Alfonso Hernandez M.D. The radiology attending physician has personally reviewed this study, and had reviewed and/or edited this written report and agrees with it. Electronically signed by: Pearl Carvalho M.D. Narrative 06/16/2024 3:42 PM CDT EXAMINATION: 1 view chest radiograph Procedure Note Pearl Carvalho MD - 07/30/2024 EXAMINATION: 1 view chest radiograph IMPRESSION: The [...] it. Electronically signed by: Pearl Carvalho M.D. us Ramos Mercado MD IMG XR PROCEDURES Final Result * POCT glucose (06/16/2024 2:07 PM CDT) Glucose, POC 156 70 - 199 mg/dL Blood 06/16/2024 2:07 PM CDT 06/16/2024 2:07 PM CDT us Kirt Hernandez MD PhD LAB POCT ORDE RABLES - DEVICE Final Result Performing Organization Address City/[facility]/ZIP Co de Phone Number [facility] [place] [address] * POCT glucose (06/16/2024 10:18 AM CDT) Glucose, POC 82 70 - 199 mg/dL Blood 06/16/2024 10:1 8 AM CDT 06/16/2024 10:18 AM CDT Kirt Hernandez MD PhD LAB POCT ORDE RABLES - DEVICE Final Result Performing Organization Address City/[facility]/ZIP Co de Phone Number [facility] Department [place] [address] * Mycobacterium tuberculosis PCR Bronchoalveolar lavage (06/16/2024 9:24 AM CDT) Report Final Report: Target not detected Organism TARGET NOT DETECTED [facility] Bronchoalveolar lavage 06/16 9:24 AM CDT 06/17/2024 2:01 PM CDT Narrative [facility] - 06/17/2024 5:44 PM CDT 1. Nucleic acid amplification for detection of Mycobacterium tuberculosis complex is performed using the [employer] GeneXpert MTB/RIF assay. ??This assay has been approved by the [place] Food and Drug administration for detection of M. tuberculosis in sputum samples. ??The performance characteristics of this test have been verified by the [facility] laboratory for sputum samples and lower respiratory tract samples. ?? 2. A negative result does not rule out an infection with Mycobacterium tuberculosis complex. ?? 3. During clinical trials, this assay was found to be 99% sensitive for detection of M. tuberculosis in smear positive samples and 76% sensitive for detection of M. tuberculosis in smear negative samples. ??Sensitivity is enhanced by testing up to three specimens obtained on separate days. ?? 4. This test should not be used to test samples from patients who have received greater than three days of anti-tuberculous therapy. ?? 5. This assay detects Mycobacterium tuberculosis complex, which includes: M. tuberculosis, M. bovis, M. africanum, M. canettii, M. microti, M. caprae, M. pinnipedi, M. mungi, and M. orygis. ?? 6. All samples will be reflexed to culture-based analysis. ?? 7. This assay has not been evaluated for use with samples from pediatric patients. ?? Current interpretive data was last revised on 2014. us Parviz Hannon MD PhD LAB MICROBIOLOGY - G ENERAL ORDERABLES Final Result [facility] Department [place] [address] * Mycobacterium tuberculosis PCR Bronchial washing (06/16/2024 9:24 AM CDT) Report Final Report: Target not detected Organism TARGET NOT DETECTED [facility] Bronchial washing 06/16/2024 9:24 AM CDT 06/17/2024 1:59 PM CDT Narrative [facility] - 06/17/2024 5:44 PM CDT 1. Nucleic acid amplification for detection of Mycobacterium tuberculosis complex is performed using the [employer] GeneXpert MTB/RIF assay. ??This assay has been approved by the [place] Food and Drug administration for detection of M. tuberculosis in sputum samples. ??The performance characteristics of this test have been verified by the [facility] laboratory for sputum samples and lower respiratory tract samples. ?? 2. A negative result does not rule out an infection with Mycobacterium tuberculosis complex. ?? 3. During clinical trials, this assay was found to be 99% sensitive for detection of M. tuberculosis in smear positive samples and 76% sensitive for detection of M. tuberculosis in smear negative samples. ??Sensitivity is enhanced by testing up to three specimens obtained on separate days. ?? 4. This test should not be used to test samples from patients who have received greater than three days of anti-tuberculous therapy. ?? 5. This assay detects Mycobacterium tuberculosis complex, which includes: M. tuberculosis, M. bovis, M. africanum, M. canettii, M. microti, M. caprae, M. pinnipedi, M. mungi, and M. orygis. ?? 6. All samples will be reflexed to culture-based analysis. ?? 7. This assay has not been evaluated for use with samples from pediatric patients. ?? Current interpretive data was last revised on 2014. Parviz Hannon MD PhD LAB MICROBIOLOGY - [facility] ORDERABLES Final Result [facility] Department [place] [address] * Cell Differential, Body Fluid (06/16/2024 9:24 AM CDT) Total cells diffed 100 cells Comment: Interpretive Data Unless otherwise specified, the reference range and other method performance specifications have not been established for CSF/Body Fluid tests. ??The test results should be integrated into the clinical context for interpretation. Current interpretive data was last revised on 2019. Neutrophils, fld 89 % [facility] Lymphs, fld 6 % [facility] Eosinophils, fld 5 % [facility] Fluid 06/16/2024 9:24 AM CDT 06/16/2024 10:42 AM CDT Cameron Russell MD LAB BODY FLUIDS AND STOOLS O RDERABLES Final Result [facility] Department [place] [address] * Mycobacterium tuberculosis PCR Bronchial washing (06/16/2024 9:24 AM CDT) Report Final Report: Target not detected Organism TARGET NOT DETECTED [facility] Bronchial washing 06/16/2024 9:24 AM CDT 06/16/2024 10:45 AM CDT Narrative [facility] - 06/16/2024 7:04 PM CDT 1. Nucleic acid amplification for detection of Mycobacterium tuberculosis complex is performed using the [employer] GeneXpert MTB/RIF assay. ??This assay has been approved by the [place] Food and Drug administration for detection of M. tuberculosis in sputum samples. ??The performance characteristics of this test have been verified by the [facility] laboratory for sputum samples and lower respiratory tract samples. ?? 2. A negative result does not rule out an infection with Mycobacterium tuberculosis complex. ?? 3. During clinical trials, this assay was found to be 99% sensitive for detection of M. tuberculosis in smear positive samples and 76% sensitive for detection of M. tuberculosis in smear negative samples. ??Sensitivity is enhanced by testing up to three specimens obtained on separate days. ?? 4. This test should not be used to test samples from patients who have received greater than three days of anti-tuberculous therapy. ?? 5. This assay detects Mycobacterium tuberculosis complex, which includes: M. tuberculosis, M. bovis, M. africanum, M. canettii, M. microti, M. caprae, M. pinnipedi, M. mungi, and Abdirahman bledsoe. ?? 6. All samples will be reflexed to culture-based analysis. ?? 7. This assay has not been evaluated for use with samples from pediatric patients. ?? Current interpretive data was last revised on 2014. Cameron Russell MD LAB MICROBIOLOGY - GENERAL O RDERABLES Final Result Performing Organization Address City/[facility]/ZIP Co de Phone Number [facility] Department [place] [address] * (ABNORMAL) Aerobic culture and gram stain Bronchial washing Bronchial (06/16/2024 9:24 AM CDT) Direct Specimen Exam Stain: Cytospin Gram stain shows: Moderate polymorphonuclear leukocytes seen. No squamous epithelial cells seen. Other cellular material present. Moderate mixed bacterial oscar seen on Gram stain. Report Final Report: 10,000 to 100,000 colonies/mL of Stenotrophomonas maltophilia Plus growth of clinically insignificant bacterial oscar. (.) [facility] Organism PLUS GROWTH OF CLINICALLY INSIGNIFICANT OSCAR. [facility] Organism STENOTROPHOMONAS MALTOPHILIA [facility] Bronchial washing (Bronchial) 06/16/2024 9:24 AM CDT 06/16/2024 10:45 AM CDT Narrative [facility] - 06/22/2024 10:28 AM CDT Testing performed by [facility] Laboratory ([phone]) Specimens submitted from normally sterile body sites will have all bacterial morphotypes identified. ??Specimens that contain grossly mixed oscar and/or are from body sites that are not normally sterile will be examined for Staphylococcus aureus, Pseudomonas aeruginosa, beta-hemolytic strep, vancomycin-resistant Enterococcus and fungus. ??If any of these are isolated, the organism will be reported. Current interpretive data was last revised on 2017. Organism Antibiotic Method Susceptibility Stenotrophomonas maltophilia Trimethopri m with Sulfamethoxazole INTERPRETATION Susceptible Stenotrophomonas maltophilia Minocycline INTERPRETATI ON Susceptible Stenotrophomonas maltophilia Levofloxacin INTERPRETATI ON Susceptible Cameron Russell MD LAB MICROBIOLOGY - GENERAL O RDERABLES Final Result Performing Organization Address [facility]/ZIP Co de Phone Number [facility] Daniela [facility] Department [place] [address] * Mycology (fungal) culture Bronchial washing Bronchial (06/16/2024 9:24 AM CDT) Report Final Report: No growth of fungus Bronchial washing (Bronchial) 06/16/2024 9:24 AM CDT 06/16/2024 10:45 AM CDT Narrative [facility] - 07/14/2024 7:43 AM CDT Testing performed by [facility] ([phone]). us Cameron Russell MD LAB MICROBIOLOGY - GENERAL O RDERABLES Final Result [facility] Daniela [facility] Department [place] [address] * (ABNORMAL) Mycobacteriology (AFB) culture and acid-fast stain Bronchial washing Bronchial (06/16/2024 9:24 AM CDT) Direct Specimen Exam Stain: Moderate Acid Fast Bacilli Seen Report Final Report: Growth in broth only Mycobacterium avium * ??* ??* ??* ??* ??* ??* ??* ??* ??* ??* ??* ??* ??* ??* ??* ??* ??* ??* ??* For Mycobacterium avium susceptibility results, see attached scanned report. * ??* ??* ??* ??* ??* ??* ??* ??* ??* ??* ??* ??* ??* ??* ??* ??* ??* ??* ??* Susceptibility performed by the [facility], [address] [place] [address] [address], [place], [place] [address] (.) [facility] Organism MYCOBACTERIUM AVIUM [facility] Bronchial washing (Bronchial) 06/16/2024 9:24 AM CDT 06/16/2024 10:45 AM CDT Narrative [facility] - 08/19/2024 10:57 AM CDT Testing performed by [facility] ([phone]). Cameron Russell MD LAB MICROBIOLOGY - GENERAL O RDERABLES Final Result [facility] [place] [address] * Mycobacterium tuberculosis PCR Bronchoalveolar lavage (06/16/2024 9:24 AM CDT) Report Final Report: Target not detected Organism TARGET NOT DETECTED [facility] Bronchoalveolar lavage 06/16 9:24 AM CDT 06/16/2024 10:46 AM CDT Narrative [facility] - 06/16/2024 7:05 PM CDT 1. Nucleic acid amplification for detection of Mycobacterium tuberculosis complex is performed using the [employer] GeneXpert MTB/RIF assay. ??This assay has been approved by the [place] Food and Drug administration for detection of M. tuberculosis in sputum samples. ??The performance characteristics of this test have been verified by the [facility] laboratory for sputum samples and lower respiratory tract samples. ?? 2. A negative result does not rule out an infection with Mycobacterium tuberculosis complex. ?? 3. During clinical trials, this assay was found to be 99% sensitive for detection of M. tuberculosis in smear positive samples and 76% sensitive for detection of M. tuberculosis in smear negative samples. ??Sensitivity is enhanced by testing up to three specimens obtained on separate days. ?? 4. This test should not be used to test samples from patients who have received greater than three days of anti-tuberculous therapy. ?? 5. This assay detects Mycobacterium tuberculosis complex, which includes: M. tuberculosis, M. bovis, M. africanum, M. canettii, M. microti, M. caprae, M. pinnipedi, M. mungi, and M. orygis. ?? 6. All samples will be reflexed to culture-based analysis. ?? 7. This assay has not been evaluated for use with samples from pediatric patients. ?? Current interpretive data was last revised on 2014. us Cameron Russell MD LAB MICROBIOLOGY - GENERAL O MARIELLA Final Result Performing Organization Address [facility] Co de Phone Number ZULEMA SOMMERS [facility] Department [place] [address] * Cell count w/rflx diff, body fluid (06/16/2024 9:24 AM CDT) Specimen type, fld Bronchial Body site, fld Bronch Lavage [facility] Color, fld Straw [facility] Clarity, fld Clear Clear [facility] Nucleated cells, fld 71 /cumm [facility] Comment: Interpretive Data Unless otherwise specified, the reference range and other method performance specifications have not been established for CSF/Body Fluid tests. ??The test results should be integrated into the clinical context for interpretation. Current interpretive data was last revised on 2019. RBC, fld 0 /cumm [facility] Fluid 06/16/2024 9:24 AM CDT 06/16/2024 10:42 AM CDT Cameron Russell MD LAB BODY FLUIDS AND STOOLS O MARIELLA Final Result Performing Organization Address [facility] Co de Phone Number ZULEMA Suarez [facility] Department [place] [address] * (ABNORMAL) Aerobic culture and gram stain Bronchoalveolar lavage Bronchial (06/16/2024 9:24 AM CDT) Direct Specimen Exam Stain: Cytospin Gram stain shows: Rare polymorphonuclear leukocytes seen. No squamous epithelial cells seen. No organisms seen. Report Final Report: Greater than or equal to 1,000 colonies/ml of Stenotrophomonas maltophilia For susceptibility results, refer to accession number [id number] on the bronch wash culture from 06/16/24 Plus growth of clinically insignificant bacterial oscar. (.) [facility] Organism PLUS GROWTH OF CLINICALLY INSIGNIFICANT OSCAR. [facility] Organism STENOTROPHOMONAS MALTOPHILIA [facility] Bronchoalveolar lavage (Bronchial) 06/16/2024 9:24 AM CDT 06/16/2024 10:46 AM CDT Narrative ZULEMA [facility] - 06/18/2024 10:37 AM CDT Testing performed by [facility] ([phone]) Specimens submitted from normally sterile body sites will have all bacterial morphotypes identified. ??Specimens that contain grossly mixed oscar and/or are from body sites that are not normally sterile will be examined for Staphylococcus aureus, Pseudomonas aeruginosa, beta-hemolytic strep, vancomycin-resistant Enterococcus and fungus. ??If any of these are isolated, the organism will be reported. Current interpretive data was last revised on 2017. Cameron Russell MD LAB MICROBIOLOGY - GENERAL O RDERABLES Final Result Performing Organization Address [facility] de Phone Number [facility] Department [place] [address] * Pneumocystis DFA Bronchoalveolar lavage (06/16/2024 9:24 AM CDT) Report Direct Stain Examination - Final: Negative for: Pneumocystis jirovecii Bronchoalveolar lavage 06/16 9:24 AM CDT 06/16/2024 10:46 AM CDT Narrative ZULEMA [facility] - 06/17/2024 3:06 PM CDT The Pneumocystis organisms found in humans were originally referred to as P. carinii f. sp. Hominis, the subspecies name used to distinguish the Pneumocystis organisms found in humans from the Pneumocystis organisms found in other mammals. ??Recently the Pneumocystis organisms found in humans was recognized as a distinct species and renamed Pneumocystis jirovecii. Current interpretive data was last revised on 07. Cameron Russell MD LAB MICROBIOLOGY - GENERAL O RDERABLES Final Result Performing Organization Address [facility] Co de Phone Number [facility] Department [place] [address] * Mycology (fungal) culture Bronchoalveolar lavage Bronchial (06/16/2024 9:24 AM CDT) Report Final Report: No growth of fungus Bronchoalveolar lavage (Bronchial) 06/16/2024 9:24 AM CDT 06/16/2024 10:46 AM CDT Narrative ZULEMA DENT - 07/14/2024 7:44 AM CDT Testing performed by [facility] ([phone]). us Cameron Russell MD LAB MICROBIOLOGY - GENERAL O RDERABLES Final Result Performing Organization Address City/[facility]/ZIP Co de Phone Number ZULEMA [facility] [place] [address] * (ABNORMAL) Mycobacteriology (AFB) culture and acid-fast stain Bronchoalveolar lavage Bronchial (06/16/2024 9:24 AM CDT) Direct Specimen Exam Stain: Few Acid Fast Bacilli Seen Notification of: Acid Fast Bacilli called to and read back by: Sonia Figueroa NP ([phone]) and [facility] ([phone]) on 06/17/2024 14:19:35 by: Stefany Bianchi MLS Report Final Report: Abundant Mycobacterium avium For susceptibility results, refer to accession number [id number] on the Bronch wash culture from 06/16/24 9:24 (.) ZULEMA [facility] Organism MYCOBACTERIUM AVIUM ZULEMA [facility] Bronchoalveolar lavage (Bronchial) 06/16/2024 9:24 AM CDT 06/16/2024 10:46 AM CDT Narrative ZULEMA DENT - 07/29/2024 9:45 AM CDT Testing performed by [facility] ([phone]). Cameron Russell MD LAB MICROBIOLOGY - GENERAL O RDERABLES Final Result Performing Organization Address City/[facility]/ZIP Co de Phone Number ZULEMA [facility] [place] [address] * Cytology (06/16/2024 9:12 AM CDT) Fluid (Bronch Lavage (Cytology)) 06/16/2024 9:12 AM CDT 06/16/2024 11:01 AM CDT Narrative PATHOLOGY [facility] - 06/17/2024 5:30 PM CDT EPIC results best viewed via link to PDF [facility] [place] [address] Note to Patients: This report may contain [...] can answer questions and explain the details. CYTOPATHOLOGY REPORT FINAL Patient Name: ?? BRI JONESAngelito Gender: ??M : ??1965 (Age: 58) Address: ??[address] [place], [place] ??[address] Hospital #: ??[id number] Taken:06/16/2024 Received:06/16/2024 Reported: 06/17/2024 Patient Type: [facility] Inpatient ?? Service: [facility] Location: [address] [place] Physician(s): ??Cameron Russell M.D. Kirt Lindsay, DO FINAL DIAGNOSIS A. ??Lung, right, bronchoalveolar lavage: ? - Negative for malignancy ? - Acute inflammation and mucoid inflammatory debris present pedraza/06/16/2024 15:43 By this signature, I attest that the above diagnosis is based upon my personal examination of the slides(and/or other material indicated in the diagnosis). Abena Pradhan M.D. Report Electronically Reviewed and Signed Out By ??Abena Pradhan M.D. 06/17/2024 17:30:13 Josué Fuentesnayla, SCT(ASCP) Gross Description A. ??Lung, right, bronchoalveolar lavage: ??10 ml cloudy fluid - 1 Pap stained ThinPrep. 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 REPORT IMAGES AND SCANNED DOCUMENTS, IF INCLUDED, ONLY VIEWABLE IN PDF VERSION OF REPORT The performance characteristics of some immunohistochemical stains, in-situ hybridization and fluorescence in-situ hybridization tests and immunophenotyping by flow cytometry cited in this report (if any) were determined by the Surgical Pathology and Flow Cytometry Departments at [facility] as part of an ongoing cloth tester quality program and in compliance with federally mandated [...] following disclaimer be attached to the report: ??This test was developed and its performance characteristics determined by the Surgical Pathology and Flow Cytometry Departments of [facility]. ??It has not been cleared or approved by the [place]. [place]. Food and Drug Administration. Cameron Russell MD LAB CYTOLOGY ORDERABLES Pilar armas Result PATHOLOGY [facility] 3rd Floor [place], [place] [phone] * Bronchoscopy - (06/16/2024 8:32 AM CDT) Anatomical Region Laterality Modality Other Narrative Procedure Note Cameron Russell MD - 06/16/2024 8:32 AM CDT [facility] Respiratory Care Patient Name: Bri Jones Procedure Date: 06/16/2024 8:32 AM Date of : 1965 Admit Type: Inpatient Age: 58 Room: [facility] Gender: Male Note Status: Finalized Procedure: Bronchoscopy Indications: Right upper lobe pneumonia Comorbidities Per chart Providers: Cameron Russell M.D., Quiana Lopez M.D. (Fellow) Referring MD: Quiana Lopez M.D. Medicines: Lidocaine 2% Nebulizer 4 mL, Lidocaine 2% appliedto cords 4 mL, Lidocaine 1% subglottic space 20 mL, Midazolam 4 mg IV, Fentanyl 100 mcg IV Complications: No immediate complications Estimated Blood Loss: Estimated blood loss: none. Procedure: Patient identification and proposed procedurewere verified prior to the procedure by the physicianand clinical staff in the exam room. The The 6.2mm bronchoscope, (403) was introduced through themouth and advanced to the tracheobronchial tree of both lungs. The procedure was accomplished without difficulty. The patient tolerated the procedurewell. Findings: The oropharynx appears normal. The larynx appears normal. The vocal cords appear normal. The subglottic space is normal. The trachea isof normal caliber. The katheryn is sharp. The tracheobronchial tree was examined to at least the first subsegmental level. Bronchial mucosaand anatomy are normal; there are no endobronchial lesions, and no secretions. The bronchoscope was advanced until wedged at the desired locationfor bronchoalveolar lavage. BAL was performed in the RUL apical segment(B1) of the lung and sent for cell count, bacterial culture, and fungal &AFB analysis and cytology. 150 mL of fluid were instilled. 30 mL were returned. The return was cloudy. Mucous plugs were present in thereturn fluid. Washings were obtained in the entire tracheobronchial tree and sentfor bacterial culture, and fungal & AFB analysis. The return wascloudy. Therapeutic suctioning was performed in the entire tracheobronchial tree. Mucus was removed from the airway and the airway was cleared. Moderate Sedation: Conscious sedation note: I personally provided direct [id number] monitoring of conscious sedation administered by an independently trained respiratorytherapist or nurse using fentanyl and versed for 22 minutes. Impression: - Right upper lobe pneumonia - The airway examination was normal. - Bronchoalveolar lavage was performed. - Washings were obtained. - Therapeutic suctioning was performed. Recommendation: - Await test results. Attending Participation: I was present and participated during the entire procedure, including non-feliz portions. Electronically signed by Cameron Russell M.D. Cameron Russell M.D. 06/16/2024 9:17:34 AM Number of Addenda: 0 Note Initiated On: 06/16/2024 6:53 AM us Quiana Lopez MD BRONCH ORDERABL ES Final Result * eGFR (06/16/2024 3:37 AM CDT) eGFR >90 >=60 mL/min/1. 73 [...] interpretive data was last reviewed 2021. Blood 06/16/2024 3:37 AM CDT 06/16/2024 3:58 AM CDT us Anthony Grace MD LAB BLOOD ORDERABLES Final Result [facility] Department [place] [address] * (ABNORMAL) Manual Differential (06/16/2024 3:37 AM CDT) Differential Manual Cells Counted [facility] Neutrophil abs 6.5 1.5 - 6.5 K/cumm [facility] Imm gran abs 0.0 0.0 - 0.1 K/cumm [facility] Lymphocyte abs 3.1 0.8 - 3.3 K/cumm [facility] Monocyte abs 0.9(H) 0.2 - 0.8 K/cumm [facility] Eosinophil abs 0.3 0.0 - 0.5 K/cumm [facility] Neutrophil pct 60.0 % [facility] Comment: Interpretive Data Percent cell count reference ranges are not reported, since discordance with absolute values may lead to misinterpretation of CBC data. Current Interpretive Data was last revised on 2018. Lymphocyte pct 28.7 % [facility] Comment: Interpretive Data Percent cell count reference ranges are not reported, since discordance with absolute values may lead to misinterpretation of CBC data. Current Interpretive Data was last revised on 2018. Monocyte pct 8.7 % [facility] Comment: Interpretive Data Percent cell count reference ranges are not reported, since discordance with absolute values may lead to misinterpretation of CBC data. Current Interpretive Data was last revised on 2018. Eosinophil pct 2.6 % [facility] Comment: Interpretive Data Percent cell count reference ranges are not reported, since discordance with absolute values may lead to misinterpretation of CBC data. Current Interpretive Data was last revised on 2018. RBC morphology Present(A) [facility] Anisocytosis Moderate(A) [facility] Macrocytes 8-15/HPF(A) [facility] Platelet estimate Adequate [facility] Blood 06/16/2024 3:37 AM CDT 06/16/2024 3:58 AM CDT us Anthony Grace MD LAB BLOOD ORDERABLES Edited Result - Final [facility] Department [place] [address] * (ABNORMAL) CBC without differential (06/16/2024 3:37 AM CDT) WBC 10.8(H) 3.8 - 9.9 K/cumm Hgb 10.2(L) 13.0 - 17.5 g/dL [facility] Hct 31.3(L) 38.9 - 50.3 % [facility] Plt 435(H) 150 - 400 K/cumm [facility] MPV 10.3 9.1 - 12.3 fL [facility] RBC 3.06(L) 4.30 - 5.80 M/cumm [facility] MCV 102.3(H) 81.3 - 96.4 fL [facility] MCH 33.3 27.1 - 33.3 pg [facility] MCHC 32.6 32.3 - 35.7 g/dL [facility] RDW CV 15.2(H) 11.1 - 14.9 % [facility] RDW SD 56.7(H) 35.7 - 48.1 fL [facility] NRBC abs 0.00 0.00 - 0.01 K/cumm [facility] Blood 06/16/2024 3:37 AM CDT 06/16/2024 3:58 AM CDT us Anthony Grace MD LAB BLOOD ORDERABLES Final Result [facility] [place] [address] * Basic metabolic panel (06/16/2024 3:37 AM CDT) Sodium 137 135 - 145 mmol/L Potassium, pl 4.2 3.3 - 4.9 mmol/L [facility] Chloride 101 97 - 110 mmol/L [facility] CO2 28 22 - 32 mmol/L [facility] Anion gap 8 2 - 15 mmol/L [facility] BUN 17 6 - 25 mg/dL [facility] Creatinine 0.97 0.80 - 1.30 mg/dL [facility] Glucose 90 70 - 199 mg/dL [facility] Comment: Interpretive Data Fasting glucose >/= 126 [...] 2022. Calcium 8.8 8.5 - 10.3 mg/dL [facility] Blood 06/16/2024 3:37 AM CDT 06/16/2024 3:58 AM CDT Narrative [facility] - 06/16/2024 4:28 AM CDT Daily except Saturday and . Morning draw. Parviz Hannon MD PhD LAB BLOOD ORDERABLES Final Result Performing Organization Address [facility] Co de Phone Number [facility] [place] [address] * Phosphorus (06/16/2024 3:37 AM CDT) Phosphorus, pl 2.5 2.3 - 4.5 mg/dL Blood 06/16/2024 3:37 AM CDT 06/16/2024 3:58 AM CDT Parviz Hannon MD PhD LAB BLOOD ORDERABLES Final Result Performing Organization Address [facility] de Phone Number [facility] [place] [address] * Magnesium (06/16/2024 3:37 AM CDT) Magnesium 1.5 1.4 - 2.5 mg/dL Blood 06/16/2024 3:37 AM CDT 06/16/2024 3:58 AM CDT Parviz Hannon MD PhD LAB BLOOD ORDERABLES Final Result Performing Organization Address City/[facility] de Phone Number [facility] [place] [address] * POCT glucose (06/15/2024 10:31 PM CDT) Glucose, POC 145 70 - 199 mg/dL Blood 06/15/2024 10:3 1 PM CDT 06/15/2024 10:31 PM CDT Kirt Hernandez MD PhD LAB POCT ZAC BRANNONLES - DEVICE Final Result Performing Organization Address City/[facility]/ZIP Co de Phone Number [facility] [place] [address] * ECG 12 lead (06/15/2024 5:29 PM CDT) Ventricular Rate EKG/Min 97 BPM [facility] Atrial Rate 97 BPM [facility] GA-Interval (MSEC) 138 ms [facility] QRS-Interval (MSEC) 78 ms [facility] QT-Interval (MSEC) 350 ms [facility] QTc 444 ms [facility] P [place] 85 degrees [facility] R [place] 88 degrees [facility] T [place] 10 degrees [facility] Diagnosis Normal sinus rhythm Possible Inferior infarct , age undetermined Nonspecific ST and T wave abnormality Abnormal ECG When compared with ECG of 15-JUN-2024 17:16, (unconfirmed) Vent. rate has decreased BY ??60 BPM Borderline criteria for Inferior infarct are now Present ST no longer elevated in Inferior leads T wave inversion no longer evident in Anterior leads Confirmed by SOHAM WINTERS M.D ([id number]) on 06/17/2024 11:43:02 AM [facility] 06/15/2024 5:29 PM CDT 06/17/2024 11:43 AM CDT us Anthony Grace MD ECG ORDERABLES Final Resul t Performing Organization Address [facility]/ZIP Co de Phone Number [facility] * Infection Prevention MRSA Only (Staphylococcus aureus) Culture Nasal (06/15/2024 5:18 PM CDT) Report Final Report: Negative Nasal 06/15/2024 5:18 PM CDT 06/15/2024 5:30 PM CDT Narrative ZULEMA [facility] - 06/16/2024 5:52 PM CDT Testing performed by [facility] ([phone]). us Anthony Grace MD LAB MICROBIOLOGY - GENERAL ORDERABLES Final Result Performing Organization Address [facility] [place] [address] * (ABNORMAL) Hemoglobin A1c (06/15/2024 5:18 PM CDT) [facility] Hgb A1C 6.7(H) 4.0 - 5.6 % Estimated Average Glucose 146 mg/dL [facility] Comment: The ADA recommends reporting an estimated Average Glucose (eAG) with all Hemoglobin A1c results using the equation derived from a study of 507 normal and diabetic adults. ??Minority populations were underrepresented and children were not included. ?? (Diabetes Care 2020; 43(S1): S66-S76). ??The eAG is not equivalent to a fasting glucose. Blood 06/15/2024 5:18 PM CDT 06/15/2024 5:38 PM CDT Anthony Grace MD LAB BLOOD ORDERABLES Final Result Performing Organization Address [facility] de Phone Number [facility] [place] [address] * Cryptococcal Antigen, Serum Blood (06/15/2024 5:18 PM CDT) [facility] Cryptococcus ag, Serum Negative Negative Comment: The cryptococcal antigen test was performed using the [employer] CrAg Lateral Flow Assay. This assay is FDA cleared for serum and CSF specimens and for the detection of Cryptococcus neoformans and Cryptococcus gattii. If the result is positive, the specimen will be titered and reported from less than 1:5 to greater than or equal to 1:2560. This assay does not distinguish between C. neoformans and C. gattii. Testing hemolyzed serum samples may lead to false negatives. Current interpretive data last revised 2019. Blood 06/15/2024 5:18 PM CDT 06/15/2024 5:30 PM CDT Anthony Grace MD LAB MICROBIOLOGY - GENERAL ORDERABLES Final Result Performing Organization Address [facility] Co [place] [address] * Blastomyces antibody, EIA, serum Blood (06/15/2024 5:18 PM CDT) Pathologist [facility] Blastomyces Antibody Negative Negative [facility] Comment: A single negative result does not exclude the diagnosis of blastomycosis. ??Repeat testing on a new sample in 7-14 days if clinically indicated. Test Performed by: [place] [address] Hopper Filler: Cayden Orellana Ph.D.; CLIA# [id number] Blood 06/15/2024 5:18 PM CDT 06/15/2024 6:30 PM CDT Anthony Grace MD LAB MICROBIOLOGY - GENERAL ORDERABLES Final Result Performing Organization Address [facility] Co de Phone Number [facility] [place] [address] [facility] * Aspergillus galactomannan antigen Blood (06/15/2024 5:18 PM CDT) Pathologist [facility] Aspergillus galactomannan Ag <0.500 <0.5 Index [facility] Comment: ADDITIONAL INFORMATION This is a qualitative test and the resulted index value is not indicative of disease severity. ??Serial testing is recommended for patients at high risk for invasive aspergillosis. This assay was performed using the FDA-cleared [employer] Aspergillus Galactomannan EIA. Test Performed by: [place] [address] Hopper Filler: Cayden Orellana Ph.D.; CLIA# [id number] Blood 06/15/2024 5:18 PM CDT 06/15/2024 5:30 PM CDT Anthony Grace MD LAB MICROBIOLOGY - GENERAL ORDERABLES Final Result Performing Organization Address [facility] Co de Phone Number ZULEMA [facility] [place] [address] [facility] * Histoplasma Antibody Blood (06/15/2024 5:18 PM CDT) Pathologist [facility] Histoplasma Ab, yeast CF Negative Negative [facility] Histoplasma Ab, Immunodiffusion Negative Negative [facility] Comment: A negative complement fixation and immunodiffusion (CF/ID) result does not exclude the diagnosis of histoplasmosis. ?? Repeat testing by CF/ID in 1-2 weeks if clinically indicated. Test Performed by: [facility] [address] [place] [address] Hopper Filler: Cayden Orellana Ph.D.; CLIA# [id number] Blood 06/15/2024 5:18 PM CDT 06/15/2024 6:00 PM CDT Anthony Grace MD LAB MICROBIOLOGY - GENERAL ORDERABLES Final Result Performing Organization Address [facility] Co de Phone Number ZULEMA [facility] [place] [address] [facility] * ECG 12 lead (06/15/2024 5:16 PM CDT) Pathologist [facility] Ventricular Rate EKG/Min 157 BPM [facility] Atrial Rate 79 BPM [facility] QRS-Interval (MSEC) 66 ms [facility] QT-Interval (MSEC) 324 ms [facility] QTc 523 ms [facility] R [place] 94 degrees [facility] T [place] -28 degrees [facility] Diagnosis Supraventricular tachycardia Rightward axis ST & T wave abnormality, consider inferolateral ischemia Abnormal ECG When compared with ECG of 15-JUN-2024 17:01, (unconfirmed) T wave inversion more evident in Lateral leads Confirmed by SOHAM WINTERS M.D ([id number]) on 06/17/2024 11:42:34 AM [facility] 06/15/2024 5:16 PM CDT 06/17/2024 11:42 AM CDT Anthony Grace MD ECG ORDERABLES Final Resul t Performing Organization Address [facility] Phone Number [facility] * ECG 12 lead (06/15/2024 5:01 PM CDT) Ventricular Rate EKG/Min 156 BPM [facility] Atrial Rate 156 BPM [facility] QRS-Interval (MSEC) 74 ms [facility] QT-Interval (MSEC) 288 ms [facility] QTc 464 ms [facility] R [place] 89 degrees [facility] T [place] -43 degrees [facility] Diagnosis Supraventricular tachycardia ST & T wave abnormality, consider inferolateral ischemia Abnormal ECG When compared with ECG of 15-JUN-2024 10:30, (unconfirmed) dupraventricular tachycardia has appeared Confirmed by SOHAM WINTERS M.D ([id number]) on 06/17/2024 11:41:50 AM [facility] 06/15/2024 5:01 PM CDT 06/17/2024 11:41 AM CDT Anthony Grace MD ECG ORDERABLES Final Resul t Performing Organization Address [facility] Phone Number [facility] * (ABNORMAL) Pro B-type natriuretic peptide (06/15/2024 1:24 PM CDT) NT-proBNP 1,012(H) <=300 pg/mL Comment: Interpretive Comments: A. Dyspnea [...] Interpretive Data Last Revised Date: 2018. Blood 06/15/2024 1:24 PM CDT 06/15/2024 1:36 PM CDT us Josué Del Valle MD PhD LAB BLOOD ORDERABLES Fin al Result [facility] Department of Laboratories [place], [place] [id number] * eGFR (06/15/2024 1:24 PM CDT) eGFR >90 >=60 mL/min/1. 73 [...] interpretive data was last reviewed 2021. Blood 06/15/2024 1:24 PM CDT 06/15/2024 1:36 PM CDT us Anthony Grace MD LAB BLOOD ORDERABLES Final Result Performing Organization Address City/State/[facility] Co de Phone Number [facility] Department [place] [address] * (ABNORMAL) Manual Differential (06/15/2024 1:24 PM CDT) Differential Manual Cells Counted 115 [facility] Neutrophil abs 6.0 1.5 - 6.5 K/cumm [facility] Imm gran abs 0.0 0.0 - 0.1 K/cumm [facility] Lymphocyte abs 2.1 0.8 - 3.3 K/cumm [facility] Monocyte abs 0.9(H) 0.2 - 0.8 K/cumm [facility] Eosinophil abs 0.7(H) 0.0 - 0.5 K/cumm [facility] Neutrophil pct 61.7 % [facility] Comment: Interpretive Data Percent cell count reference ranges are not reported, since discordance with absolute values may lead to misinterpretation of CBC data. Current Interpretive Data was last revised on 2018. Lymphocyte pct 21.7 % [facility] Comment: Interpretive Data Percent cell count reference ranges are not reported, since discordance with absolute values may lead to misinterpretation of CBC data. Current Interpretive Data was last revised on 2018. Monocyte pct 9.6 % [facility] Comment: Interpretive Data Percent cell count reference ranges are not reported, since discordance with absolute values may lead to misinterpretation of CBC data. Current Interpretive Data was last revised on 2018. Eosinophil pct 7.0 % [facility] Comment: Interpretive Data Percent cell count reference ranges are not reported, since discordance with absolute values may lead to misinterpretation of CBC data. Current Interpretive Data was last revised on 2018. RBC morphology Present(A) [facility] Anisocytosis Moderate(A ) [facility] Macrocytes 8-15/HPF(A ) [facility] Platelet estimate Increased( A) [facility] Blood 06/15/2024 1:24 PM CDT 06/15/2024 1:36 PM CDT us Anthony Grace MD LAB BLOOD ORDERABLES Final Result [facility] Department [place] [address] * (ABNORMAL) CBC without differential (06/15/2024 1:24 PM CDT) WBC 9.8 3.8 - 9.9 K/cumm Hgb 10.9(L) 13.0 - 17.5 g/dL [facility] Hct 33.6(L) 38.9 - 50.3 % [facility] Plt 471(H) 150 - 400 K/cumm [facility] MPV 10.3 9.1 - 12.3 fL [facility] RBC 3.30(L) 4.30 - 5.80 M/cumm [facility] MCV 101.8(H) 81.3 - 96.4 fL [facility] MCH 33.0 27.1 - 33.3 pg [facility] MCHC 32.4 32.3 - 35.7 g/dL [facility] RDW CV 14.7 11.1 - 14.9 % [facility] RDW SD 55.0(H) 35.7 - 48.1 fL [facility] NRBC abs 0.00 0.00 - 0.01 K/cumm [facility] Blood 06/15/2024 1:24 PM CDT 06/15/2024 1:36 PM CDT Anthony Grace MD LAB BLOOD ORDERABLES Final Result Performing Organization Address City/State/[facility] de Phone Number [facility] Department [place] [address] * Respiratory pathogen panel Nasopharyngeal (06/15/2024 1:24 PM CDT) Pathologist [facility] Influenza A RNA Not Detected Not Detected Influenza B RNA Not Detected Not Detected [facility] RSV RNA Not Detected Not Detected [facility] COVID-19 RNA Not Detected Not Detected [facility] Coronavirus 229E RNA Not Detected Not Detected [facility] Coronavirus HKU1 RNA Not Detected Not Detected [facility] Coronavirus NL63 RNA Not Detected Not Detected [facility] Coronavirus OC43 RNA Not Detected Not Detected [facility] Adenovirus DNA Not Detected Not Detected [facility] Metapneumovirus RNA Not Detected Not Detected [facility] Rhinovirus/Enterov irus RNA Not Detected Not Detected [facility] Parainfluenza 1 RNA Not Detected Not Detected [facility] Parainfluenza 2 RNA Not Detected Not Detected [facility] Parainfluenza 3 RNA Not Detected Not Detected [facility] Parainfluenza 4 RNA Not Detected Not Detected [facility] B. pertussis DNA Not Detected Not Detected [facility] B. parapertussis DNA Not Detected Not Detected [facility] C. pneumoniae DNA Not Detected Not Detected [facility] M. pneumoniae DNA Not Detected Not Detected [facility] Nasopharyngeal 06/15/2024 1: 24 PM CDT 06/15/2024 1:51 PM CDT Narrative [facility] - 06/15/2024 3:06 PM CDT Is the Patient experiencing symptoms consistent with COVID?->Yes Surveillance testing for transplant patient?->No ??Interpretive Data The [employer] FilmArray Respiratory Panel (RP2.1) assay is a [...] assay has FDA clearance for testing of CONFERENCE DIRECTOR swabs. ??The performance of additional specimen types has been assessed by the performing laboratory. ??The performance characteristics of this assay have been determined by [facility] Molecular Infectious Disease Laboratory. Current interpretive data was last revised on 22. Anthony Grace MD LAB MICROBIOLOGY - GENERAL ORDERABLES Final Result Performing Organization Address [facility] [place] [address] * (ABNORMAL) Fibrinogen (06/15/2024 1:24 PM CDT) Pathologist [facility] Fibrinogen 770(H) 170 - 400 mg/dL Blood 06/15/2024 1:24 PM CDT 06/15/2024 1:40 PM CDT Result [facility] Anthony Grace MD LAB BLOOD ORDERABLES Final Result Performing Organization Address [facility] [place] [address] * Type and screen (06/15/2024 1:24 PM CDT) Pathologist [facility] ABO Rh A Positive Ursula, indirect Negative [facility] Blood 06/15/2024 1:24 PM CDT 06/15/2024 1:38 PM CDT Narrative [facility] - 06/15/2024 2:31 PM CDT Has the patient had Daratumumab or Isatuximab in the past 6 months?->Unknown Result [facility] Anthony Grace MD LAB BLOOD BANK TEST ORDERAB LES Final Result Performing Organization Address [facility] [place] [address] * aPTT (06/15/2024 1:24 PM CDT) aPTT 38 28 - 38 sec Comment: Interpretive Data Heparin therapeutic range: 66.0 - 100.0 seconds. Range based on correlation with therapeutic heparin activity range of 0.3 - 0.7 Units/mL. Current interpretive data was last revised on 2023. Blood 06/15/2024 1:24 PM CDT 06/15/2024 1:40 PM CDT Anthony Grace MD LAB BLOOD ORDERABLES Final Result Performing Organization Address [facility] Co de Phone Number [facility] [employer] [place] [address] * Protime-INR (06/15/2024 1:24 PM CDT) PT 11.9 9.7 - 13.0 sec INR 1.10 0.90 - 1.20 [facility] Comment: Interpretive data Oral anticoagulant therapeutic ranges: Venous thromboembolism prophylaxis or treatment: 2.0-3.0 CARDIOLOGY Standard range: 2.0-3.0 High-intensity range: 2.5-3.5 Refer to indication-specific guidelines for appropriate target ranges for prosthetic heart valve replacement. Current interpretive data was last revised on 2019. Blood 06/15/2024 1:24 PM CDT 06/15/2024 1:40 PM CDT Anthony Grace MD LAB BLOOD ORDERABLES Final Result Performing Organization Address [facility] Co de Phone Number [facility] [place] [address] * Uric acid (06/15/2024 1:24 PM CDT) Uric acid 5.7 3.0 - 8.0 mg/dL Blood 06/15/2024 1:24 PM CDT 06/15/2024 1:36 PM CDT Anthony Grace MD LAB BLOOD ORDERABLES Final Result Performing Organization Address [facility] de Phone Number [facility] [place] [address] * (ABNORMAL) Lactate dehydrogenase (LD) (06/15/2024 1:24 PM CDT) Lactate dehydrogenase (LDH) 251(H) 100 - 250 Units/L Blood 06/15/2024 1:24 PM CDT 06/15/2024 1:36 PM CDT Anthony Grace MD LAB BLOOD ORDERABLES Final Result Performing Organization Address [facility] Phone Number [facility] [place] [address] * Phosphorus (06/15/2024 1:24 PM CDT) Phosphorus, pl 2.8 2.3 - 4.5 mg/dL Blood 06/15/2024 1:24 PM CDT 06/15/2024 1:36 PM CDT Anthony Grace MD LAB BLOOD ORDERABLES Final Result Performing Organization Address [facility] de Phone Number [facility] [place] [address] * Magnesium (06/15/2024 1:24 PM CDT) Magnesium 1.5 1.4 - 2.5 mg/dL Blood 06/15/2024 1:24 PM CDT 06/15/2024 1:36 PM CDT Anthony Grace MD LAB BLOOD ORDERABLES Final Result Performing Organization Address [facility]/ZIP Co de Phone Number [facility] Department [place] [address] * (ABNORMAL) Comprehensive metabolic panel (06/15/2024 1:24 PM CDT) Sodium 139 135 - 145 mmol/L Potassium, pl 4.3 3.3 - 4.9 mmol/L [facility] Chloride 101 97 - 110 mmol/L [facility] CO2 27 22 - 32 mmol/L [facility] Anion gap 11 2 - 15 mmol/L [facility] BUN 13 6 - 25 mg/dL [facility] Creatinine 0.80 0.80 - 1.30 mg/dL [facility] Glucose 119 70 - 199 mg/dL [facility] Comment: Interpretive Data Fasting glucose >/= 126 [...] interpretive data was last revised 2022. Calcium 9.6 8.5 - 10.3 mg/dL [facility] Bilirubin, total 0.2 0.1 - 1.2 mg/dL [facility] Protein, pl 8.4 6.5 - 8.5 g/dL [facility] Albumin 3.3(L) 3.5 - 5.0 g/dL [facility] Alk phos 143(H) 40 - 130 Units/L [facility] ALT 13 7 - 55 Units/L [facility] AST 29 10 - 50 Units/L [facility] Blood 06/15/2024 1:24 PM CDT 06/15/2024 1:36 PM CDT us Anthony Grace MD LAB BLOOD ORDERABLES Final Result [facility] [place] [address] * XR Chest 1 View (06/15/2024 12:02 PM CDT) Anatomical Region Laterality Modality Body, Chest N/A Computed Radiogr aphy 06/15/2024 3:21 PM CDT Impressions 06/15/2024 3:21 PM CDT The current study is compared with the prior radiograph dated ??03/31/2024. ??Again seen are cavitary upper lobe predominant areas of consolidation. ??These involve both the right upper lobe and the left upper lobe. ??Involvement in the right upper lobe is much more extensive than in the left upper lobe. ??While there is no interval change from 03/31/2024, there is apparent worsening compared to earlier films from 02/22/2024 and 02/27/2024. ??In this patient who may be immunosuppressed, consider opportunistic infection including tuberculosis. The Critical results were discussed with ??Dr Grace . ??by Dr. Carvalho on 06/15/2024 at 2:00 PM Electronically signed by: Pearl Carvalho M.D. Narrative 06/15/2024 3:21 PM CDT EXAMINATION: 1 view chest radiograph Procedure Note Pearl Carvalho MD - 06/15/2024 EXAMINATION: 1 view chest radiograph IMPRESSION: The [...] PM Electronically signed by: Pearl Carvalho M.D. Anthony Grace MD IMG XR PROCEDURES Final Res ult * ECG 12 lead (06/15/2024 10:29 AM CDT) Ventricular Rate EKG/Min 92 BPM [facility] Atrial Rate 92 BPM [facility] GA-Interval (MSEC) 132 ms [facility] QRS-Interval (MSEC) 86 ms [facility] QT-Interval (MSEC) 368 ms [facility] QTc 455 ms [facility] P [place] 86 degrees [facility] R [place] 91 degrees [facility] T [place] 70 degrees [facility] Diagnosis Sinus rhythm with frequent Premature ventricular complexes Low voltage limb leads: consider pericardial effusions, ??pulm disease, pleural effusion, ??obesity ??or cardiomyopathy Rightward axis Cannot rule out Inferior infarct , age undetermined Abnormal ECG When compared with ECG of 27-MAR-2024 21:22, Premature ventricular complexes are now Present Premature atrial complexes are no longer Present Confirmed by SOHAM WINTERS M.D ([id number]) on 06/17/2024 11:40:57 AM [facility] 06/15/2024 10:2 9 AM CDT 06/17/2024 11:40 AM CDT Anthony Grace MD ECG ORDERABLES Final Resul t [facility] documented in this encounter Visit Diagnoses Diagnosis Right sided lung infiltrate- Primary Swelling, mass, or lump in chest AML s/p Allo SCT in 2008 Hypomagnesemia Disorders of magnesium metabolism Increased weakness when ambulating Type 2 diabetes mellitus with hyperosmolarity 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, with long-term current use of insulin (HCC) Hypokalemia Hypopotassemia Pneumonia of right upper lobe due to infectious organism COPD with Pulmonary emphysema (HCC) Other emphysema Acute on chronic hypoxic respiratory failure (HCC) Yogcj-ckoljo-ldql disease (HCC) AML s/p Allo SCT in 2008 Type 2 diabetes mellitus (HCC) CHF (congestive heart failure) (CMS/HCC) (HCC) Congestive heart failure, unspecified DVT (deep venous thrombosis) (CMS/HCC) (HCC) Acute venous embolism and thrombosis of unspecified deep vessels of lower extremity Peripheral neuropathy Unspecified hereditary and idiopathic peripheral neuropathy Moderate malnutrition (CMS/HCC) Tobacco abuse Tobacco use disorder Pneumonia due to stenotrophomonas Pneumonia, organism unspecified 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[facility]) documented in this encounter Admitting Diagnoses Diagnosis Lung mass Swelling, mass, or lump in chest documented in this encounter Administered Medications Inactive Administered Medications - up to 3 most recent administrations Medication Order MAR Action Action Date Dose Rate Site acetaminophen (TYLENOL) tablet 650 mg 650 mg, oral, Every 6 hours PRN, fever, and all platelet transfusions, Starting on Sat06/15/24 at 1125 acetaminophen (TYLENOL) tablet 650 mg 650 mg, oral, Once, On Sat06/19/24 at 0745, For 1 dose Given 06/19/2024 7:16 AM CDT 650 mg acyclovir (ZOVIRAX) tablet 400 mg 400 mg, oral, Every 8 hours, First dose on Sat06/15/24 at 1345, Indications: Prophylaxis, MedicalIndications:Prophylaxis, Medical Given 06/24/2024 3:05 PM CDT 400 mg Given 06/24/2024 9:35 AM CDT 400 mg Given 06/23/2024 11:25 PM CDT 400 mg adenosine (ADENOCARD) 3 mg/mL injection 6 mg 6 mg, intravenous, Once, On Sat06/15/24 at 1845, For 1 dose Given 06/15/2024 6:25 PM CDT 6 mg aluminum & magnesium pofslvokq-trkiicvsepp-rotkblxztmgiwtq-lidocain e (MAGIC MOUTHWASH) oral suspension 1-1-1 15 mL 15 mL, swish & swallow, 4 times daily PRN, other, mucositis, Starting on Sat06/15/24 at 1125, Indications: Chemotherapy-Induced MucositisIndications:Chemotherapy-Induced Mucositis atorvastatin (LIPITOR) tablet 40 mg 40 mg, oral, Daily, First dose on Sat06/15/24 at 1345 Given 06/24/2024 9:31 AM CDT 40 mg Given 06/23/2024 8:06 AM CDT 40 mg Given 06/22/2024 8:01 AM CDT 40 mg azithromycin (ZITHROMAX) tablet 500 mg 500 mg, oral, Daily, First dose on Sat06/16/24 at 1700, For 3 days, Indications: COPD ExacerbationIndications:COPD Exacerbation Given 06/18/2024 8:50 AM CDT 500 mg Given 06/17/2024 8:32 AM CDT 500 mg Given 06/16/2024 6:02 PM CDT 500 mg bacitracin-polymyxin B (POLYSPORIN) 500-10,000 unit/gram ointment tube 1 Application 1 Application, topical, Every 4 hours PRN, wound care, Starting on Sat06/15/24 at 1125, Apply to affected area: other, Indications: Minor Bacterial Skin InfectionsIndications:Minor Bacterial Skin Infections camphor-menthoL (SARNA) 0.5-0.5 % lotion topical, Every 2 hours PRN, itching, Starting on Sat06/15/24 at 1125, Apply to affected area: other, Indications: Pruritus of SkinIndications:Pruritus of Skin dextrose (D10W) 10% bolus 250 mL 250 mL, intravenous, at 1,000 mL/hr, Administer over 15 Minutes, Every 15 min PRN, blood glucose less than 70 mg/dL and UNABLE to swallow/take PO glucose/juice., Starting on Sat06/22/24 at 1336, After treatment for hypoglycemia, recheck BG followed [...] glucose less than 70 mg/dL, Starting on Sat06/22/24 at 1336, If patient is alert and able to [...] episode of hypoglycemia., Indications: hypoglycemic disorderIndications:hypoglycemic disorder fentaNYL (SUBLIMAZE) preservative free injection Code/trauma/sedation medication, Starting on Sat06/16/24 at 0848 Given 06/16/2024 8:55 AM CDT 50 mcg Given 06/16/2024 8:48 AM CDT 50 mcg gyeyuzgkfwt-fupgzhlaw-ytghadvh (TRELEGY ELLIPTA) 200-62.5-25 mcg inhaler 1 puff 1 puff, inhalation, Daily, First dose on Sat06/15/24 at 1345, Rn to administer. Rinse mouth with water after use. Do not swallow. Given 06/24/2024 9:35 AM C DT 1 puff Given 06/23/2024 8:07 AM CDT 1 puff Given 06/22/2024 8:02 AM CDT 1 puff gabapentin (NEURONTIN) capsule 300 mg 300 mg, oral, 3 times daily, First dose on Sat06/15/24 at 1600 Given 06/15/2024 2:15 PM CDT 300 mg gabapentin (NEURONTIN) capsule 300 mg 300 mg, oral, 4 times daily, First dose (after last modification) on Sat06/15/24 at 1715 Given 06/24/2024 5:14 PM CDT 300 mg Given 06/24/2024 12:53 PM CDT 300 mg Given 06/24/2024 9:35 AM CDT 300 mg glucagon injection 1 mg 1 mg, intramuscular, Every 30 min PRN, low blood sugar, blood glucose less than 70 mg/dL AND no IV access AND unable to take PO glucose/juice., Starting on Sat06/22/24 at 1336, After Glucagon is administered, position patient on [...] with 1 mL SWFI. Use immediately following reconstitution.Indications:Type 2 diabetes mellitus with hyperosmolarity 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, with long-term current use of insulin (HCC) guaiFENesin ER (MUCINEX) extended release tablet 1,200 mg 1,200 mg, oral, 2 times daily, First dose (after last modification) on Sat06/20/24 at 2200, Do not crush, chew, cut, dissolve, open or otherwise manipulate tablet/capsule. Given 06/24/2024 9:31 AM CDT 1,200 mg Given 06/23/2024 8:24 PM CDT 1,200 mg Given 06/23/2024 8:06 AM CDT 1,200 mg guaiFENesin ER (MUCINEX) extended release tablet 600 mg 600 mg, oral, 2 times daily, First dose on Sat06/15/24 at 1345, Do not crush, chew, cut, dissolve, open or otherwise manipulate tablet/capsule. Given 06/20/2024 7:40 AM CDT 600 mg Given 06/19/2024 8:47 PM CDT 600 mg Given 06/19/2024 8:19 AM CDT 600 mg heparin 10 unit/mL flush 20-50 Units 20-50 Units (2-5 mL), intra-catheter, As needed, line care, with each use, Starting on Sat06/15/24 at 1125, Do not use with Groshong catheter. Do not use with peripheral IV Flush volume based on line type, size, and protocol., Indications: Maintain Patency of Indwelling Vascular CatheterIndications:Maintain Patency of Indwelling Vascular Catheter heparin 10 unit/mL flush 50 Units 50 Units (5 mL), intra-catheter, 2 times daily, First dose on Sat06/15/24 at 1600, Do not use with Groshong catheter. Do not use with peripheral IV., Indications: Maintain Patency of Indwelling Vascular CatheterIndications:Maintain Patency of Indwelling Vascular Catheter insulin glargine (LANTUS, SEMGLEE) 100 unit/mL injection 5 Units 5 Units, subcutaneous, Nightly, First dose on Sat06/22/24 at 2100, Do not hold if NPO. Do not mix with other insulins, Indications: Diabetes MellitusIndications:Diabetes Mellitus Given 06/23/2024 8:24 PM CDT 5 Units Left Lower Abdomen Given 06/22/2024 8:38 PM CDT 5 Units Ri ght Lower Abdomen insulin lispro (HumaLOG, ADMELOG) 100 unit/mL injection 0-10 Units 0-10 Units, subcutaneous, 3 times daily with meals, First dose on Sat06/17/24 at 1245, Blood glucose mg/dL: 149 or less: No [...] NPO Status, Indications: Diabetes MellitusIndications:Diabetes Mellitus Given 06/24/2024 1:04 PM CDT 4 Units Left Upper Abdomen Given 06/23/2024 4:44 PM CDT 6 Units Le ft Upper Arm Given 06/23/2024 11:26 AM CDT 4 Units R ight Upper Arm insulin lispro (HumaLOG, ADMELOG) 100 unit/mL injection 0-5 Units 0-5 Units, subcutaneous, Every 4 hours scheduled, First dose on Sat06/16/24 at 2000, Blood glucose mg/dL: 149 or less: No [...] NPO Status, Indications: Diabetes MellitusIndications:Diabetes Mellitus Given 06/17/2024 8:32 AM CDT 2 Units Right Upper Arm Given 06/17/2024 3:58 AM CDT 2 Units Le ft Upper Arm Given 06/16/2024 11:40 PM CDT 2 Units R ight Upper Arm insulin lispro (HumaLOG, ADMELOG) 100 unit/mL injection 0-5 Units 0-5 Units, subcutaneous, Nightly, First dose on Sat06/17/24 at 2100, Blood glucose mg/dL: 149 or less: No [...] NPO Status, Indications: Diabetes MellitusIndications:Diabetes Mellitus Given 06/23/2024 8:24 PM CDT 1 Units Right Lower Abdomen Given 06/22/2024 8:43 PM CDT 2 Units Le ft Lower Abdomen Given 06/20/2024 9:19 PM CDT 5 Units Le ft Lower Abdomen insulin lispro (HumaLOG, ADMELOG) 100 unit/mL injection 5 Units 5 Units, subcutaneous, Once, On Sat06/17/24 at 2300, For 1 dose, Indications: HyperglycemiaIndications:Hype rglycemia Given 06/17/2024 11:02 PM CDT 5 Units Left Lower Abdomen insulin lispro (HumaLOG, ADMELOG) 100 unit/mL injection 5 Units 5 Units, subcutaneous, Once, On Angy 06/18/24 at 0100, For 1 dose, Indications: HyperglycemiaIndications:Hype rglycemia Given 06/18/2024 1:28 AM CDT 5 Units Left Lower Abdomen insulin NPH (HumuLIN N, NovoLIN N) 100 unit/mL injection 5 Units 5 Units, subcutaneous, Daily, First dose on Sat06/17/24 at 1245, Reason for prescribing NPH: with steroids, Additional Instructions: Administer with steroids. Hold if steroids held or discontinued. Notify MD if steroid dose changes or held. Given 06/19/2024 8:18 AM CDT 5 Units Left Upper Abdomen Given 06/18/2024 8:50 AM CDT 5 Units Ri ght Upper Arm Given 06/17/2024 12:40 PM CDT 5 Units L eft Upper Arm insulin NPH (HumuLIN N, NovoLIN N) 100 unit/mL injection 8 Units 8 Units, subcutaneous, Daily, First dose (after last modification) on 06/20/24 at 0900, For 1 dose, Reason for prescribing NPH: with steroids, Additional Instructions: Administer with steroids. Hold if steroids held or discontinued. Notify MD if steroid dose changes or held. Given 06/20/2024 7:41 AM CDT 8 Units Left Lower Abdomen insulin regular (HumuLIN R, NovoLIN R) 100 unit/mL injection 10 Units 10 Units, intravenous, Once, On Sat06/17/24 at 2130, For 1 dose, Indications: HyperglycemiaIndications:Hyper glycemia Given 06/17/2024 9:15 PM CDT 10 Units ipratropium-albuteroL (DUO-NEB) 0.5-2.5 mg/3 mL nebulizer solution 3 mL 3 mL, nebulization, 4 times daily (staff respiratory therapist), First dose on Sat06/15/24 at 1215, Indications: Chronic Obstructive Pulmonary Disease with BronchospasmsIndications:Chron ic Obstructive Pulmonary Disease with Bronchospasms Given 06/15/2024 11:53 AM CDT 3 mL ipratropium-albuteroL (DUO-NEB) 0.5-2.5 mg/3 mL nebulizer solution 3 mL 3 mL, nebulization, Every 4 hours PRN (staff respiratory therapist), wheezing, shortness of breath, Starting on Sat06/15/24 at 1315, Indications: Chronic Obstructive Pulmonary Disease with BronchospasmsIndications:Chron ic Obstructive Pulmonary Disease with Bronchospasms Given 06/16/2024 1:43 PM CDT 3 mL Given 06/15/2024 10:13 PM CDT 3 mL ipratropium-albuteroL (DUO-NEB) 0.5-2.5 mg/3 mL nebulizer solution 3 mL 3 mL, nebulization, 4 times daily (staff respiratory therapist), First dose (after last modification) on Sat06/16/24 at 1700, Indications: Chronic Obstructive Pulmonary Disease with BronchospasmsIndications:Chronic Obstructive Pulmonary Disease with Bronchospasms Given 06/24/2024 10:55 AM CDT 3 mL Given 06/24/2024 8:31 AM CDT 3 mL Given 06/23/2024 8:34 PM CDT 3 mL lidocaine (PF) (XYLOCAINE) 20 mg/mL (2 %) preservative free injection 4 mL 4 mL, other, Once (staff respiratory therapist), On Sat06/16/24 at 0915, For 1 dose, Pre-Op, Bronchoscopy staff to administer via catheter topically to vocal cords., Indications: Administration of Local AnesthesiaIndications:Administration of Local Anesthesia Given 06/16/2024 8:35 AM CDT 4 mL lidocaine (PF) (XYLOCAINE) 20 mg/mL (2 %) preservative free injection 4 mL 4 mL, nebulization, Once (staff respiratory therapist), On Sat06/16/24 at 0915, For 1 dose, Pre-Op, Bronchoscopy staff to administer prior to procedure via nebulization., Indications: Administration of Local AnesthesiaIndications:Administration of Local Anesthesia Given 06/16/2024 8:30 AM CDT 4 mL lidocaine (XYLOCAINE) 10 mg/mL (1 %) injection Code/trauma/sedation medication, Starting on Sat06/16/24 at 0857, Indications: Administration of Local AnesthesiaIndications:Administration of Local Anesthesia Given 06/16/2024 8:57 AM CDT 20 mL lidocaine (XYLOCAINE) 20 mg/mL (2 %) injection Code/trauma/sedation medication, Starting on Sat06/16/24 at 0849, Indications: Administration of Local AnesthesiaIndications:Administration of Local Anesthesia Given 06/16/2024 8:49 AM CDT 4 mL loperamide (IMODIUM) capsule 2 mg 2 mg, oral, Once, On Sat06/19/24 at 2100, For 1 dose, Maximum recommended dose 16 mg/dayIndications: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) Given 06/19/2024 8:48 PM CDT 2 mg loperamide (IMODIUM) capsule 2 mg 2 mg, oral, 3 times daily PRN, diarrhea, Starting on Sat06/21/24 at 2255, Maximum recommended dose 16 mg/day Given 06/21/2024 10:30 PM CDT 2 mg magnesium sulfate 2 g/50 mL in water (premix) 2 g 2 g, intravenous, Administer over 60 Minutes, Once, On Sat06/24/24 at 0800, For 1 doseIndications:Hypomagnesemia New Bag 06/24/2024 9:32 AM CDT 2 g magnesium sulfate 4 g/100 mL in water (premix) 4 g 4 g, intravenous, Administer over 90 Minutes, Every 4 hours PRN, magnesium replacement, Starting on Sat06/15/24 at 1128, For magnesium level of 1.2-1.5 mg/dL, Indications: hypomagnesemiaIndications:hypomagnesemia New Bag 06/16/2024 6:26 AM CDT 4 g magnesium sulfate 4 g/100 mL in water (premix) 4 g 4 g, intravenous, Administer over 90 Minutes, Once, On Sat06/22/24 at 0815, For 1 doseIndications:Hypomagnesemia New Bag 06/22/2024 7:56 AM CDT 4 g magnesium sulfate 4 g/100 mL in water (premix) 4 g 4 g, intravenous, Administer over 90 Minutes, Once, On Sat06/23/24 at 0815, For 1 doseIndications:Hypomagnesemia New Bag 06/23/2024 8:09 AM CDT 4 g midazolam (VERSED) 1 mg/mL injection intravenous, Code/trauma/sedation medication, Starting on Sat06/16/24 at 0848 Given 06/16/2024 8:55 AM CDT 1 mg Given 06/16/2024 8:51 AM CDT 2 mg Given 06/16/2024 8:48 AM CDT 1 mg minocycline (MINOCIN,DYNACIN) 100 mg in sodium chloride 0.9% 250 mL IVPB 100 mg, intravenous, at 255 mL/hr, Administer over 60 Minutes, Every 12 hours scheduled, First dose (after last modification) on Sat06/17/24 at 1700, Indications: Pneumonia, Hospital AcquiredIndications:Pneumonia, Hospital Acquired New Bag 06/18/2024 8:56 AM CDT 100 mg 255 mL/hr New Bag 06/17/2024 4:54 PM CDT 100 mg 255 mL/hr minocycline (MINOCIN,DYNACIN) capsule 200 mg 200 mg, oral, 2 times daily (for quinolones,etc), First dose on Sat06/18/24 at 1800, For 19 doses, Do not crush, break, or open. Give 2 hrs before or 2 hrs after MVI, antacids, or other products containing sucralfate, magnesium, aluminum, iron, or zinc. May be taken without regard to meals., Indications: Pneumonia, Hospital AcquiredIndications:Pneumonia, Hospital Acquired Given 06/24/2024 5:14 PM CDT 200 mg Given 06/24/2024 6:10 AM CDT 200 mg Given 06/23/2024 4:44 PM CDT 200 mg montelukast (SINGULAIR) tablet 10 mg 10 mg, oral, Nightly, First dose on Sat06/15/24 at 2100 Given 06/23/2024 8:23 PM CDT 10 mg Given 06/22/2024 8:37 PM CDT 10 mg Given 06/21/2024 9:03 PM CDT 10 mg mycophenolate mofetil (CELLCEPT) tablet 1,000 mg 1,000 mg, oral, 2 times daily, First dose on Sat06/15/24 at 1345, Do not crush, chew, cut, dissolve, open or otherwise manipulate tablet/capsule. Given 06/24/2024 9:31 AM CDT 1,000 mg Given 06/23/2024 8:24 PM CDT 1,000 mg Given 06/23/2024 8:06 AM CDT 1,000 mg nicotine (NICODERM CQ) 21 mg patch 24 hour 1 patch 1 patch, transdermal, Administer over 24 Hours, Daily, First dose on Sat06/15/24 at 1345, Apply a new patch every 24 hours to a clean, dry, hairless site on the upper arm or hip. Rotate site. Medication Applied 06/24/2024 9:31 AM CDT 1 patch Right Arm Medication Applied 06/23/2024 8:06 AM CDT 1 patch Left Arm Medication Applied 06/22/2024 7:56 AM CDT 1 patch Right Arm pantoprazole DR (PROTONIX) extended release tablet 40 mg 40 mg, oral, 2 times daily, First dose on Sat06/15/24 at 1345, Do not crush, chew, cut, dissolve, open or otherwise manipulate tablet/capsule., Indications: Stress Ulcer ProphylaxisIndications:Stress Ulcer Prophylaxis Given 06/24/2024 9:31 AM CDT 40 mg Given 06/23/2024 8:24 PM CDT 40 mg Given 06/23/2024 8:06 AM CDT 40 mg piperacillin-tazobactam (ZOSYN) 4.5 gram/120 mL in sodium chloride 0.9% (premix) 4.5 g 4.5 g, intravenous, at 240 mL/hr, Administer over 0.5 Hours, Every 6 hours scheduled, First dose on Sat06/16/24 at 1215, For 18 doses, Indications: Pneumonia, Community AcquiredIndications:Pneumonia, Community Acquired New Bag 06/20/2024 5:13 PM CDT 4.5 g 240 mL/hr New Bag 06/20/2024 12:16 PM CDT 4.5 g 240 mL/hr New Bag 06/20/2024 6:03 AM CDT 4.5 g 240 mL/hr polyvinyl alcohol-povidone (REFRESH CLASSIC) 1.4-0.6 % ophthalmic solution 2 drop 2 drop, each eye, Every 4 hours PRN, dry eyes, Starting on Sat06/15/24 at 1125, Indications: Dry EyeIndications:Dry Eye Given 06/16/2024 9:[address] george potassium chloride ER (KLOR-CON) extended release tablet 40 mEq 40 mEq, oral, Once, On Sat06/23/24 at 0815, For 1 dose, Tablets should not be crushed, chewed, dissolved, or otherwise manipulated. Capsules may be opened and sprinkled on a spoonful of applesauce or pudding, but the contents of the capsule should not be crushed or chewed.Indications:Hypokalemia Given 06/23/2024 8:05 AM CDT 40 mEq predniSONE (DELTASONE) tablet 40 mg 40 mg, oral, Daily, First dose on Sat06/16/24 at 1700 Given 06/17/2024 8:31 AM CDT 40 mg Given 06/16/2024 6:02 PM CDT 40 mg predniSONE (DELTASONE) tablet 40 mg 40 mg, oral, Daily, First dose (after last modification) on Sat06/18/24 at 0900, For 3 doses Given 06/20/2024 7:40 AM CDT 40 mg Given 06/19/2024 8:19 AM CDT 40 mg Given 06/18/2024 8:50 AM CDT 40 mg ramelteon (ROZEREM) tablet 8 mg 8 mg, oral, Nightly PRN, sleep, Starting on Sat06/15/24 at 1656, Indications: Sleep-Onset InsomniaIndications:Sleep-Onset Insomnia Given 06/24/2024 1:33 AM CDT 8 m g Given 06/19/2024 11:27 PM CDT 8 mg Given 06/19/2024 12:20 AM CDT 8 mg ramelteon (ROZEREM) tablet 8 mg 8 mg, oral, Nightly, First dose on Sat06/18/24 at 2100, Indications: Sleep-Onset InsomniaIndications:Sleep-Onset Insomnia Given 06/23/2024 8:23 PM CDT 8 m g Given 06/22/2024 8:37 PM CDT 8 mg Given 06/21/2024 9:03 PM CDT 8 mg rivaroxaban (XARELTO) tablet 20 mg 20 mg, oral, Daily with dinner, First dose on Sat06/15/24 at 1800, Nurse to discontinue heparin infusion order and associated bolus at first administration of rivaroxaban using 'order condition met' order source. If patient is eating, administer doses of 15 mg or greater with food. If patient is not eating, still administer dose unless instructed differently by provider., Indications: Venous ThrombosisIndications:Venous Thrombosis Given 06/24/2024 5:14 PM CDT 20 m g Given 06/23/2024 4:44 PM CDT 20 mg Given 06/22/2024 5:20 PM CDT 20 mg sodium chloride (OCEAN) 0.65 % nasal spray 2 spray 2 spray, each nostril, Every 1 hour PRN, other, dryness, Starting on Sat06/15/24 at 1125, Indications: Dry NoseIndications:Dry Nose sodium chloride 0.9% flush 0.5-20 mL 0.5-20 mL, intra-catheter, Every 8 hours scheduled, First dose on Sat06/15/24 at 1400, Flush volume based on line type and size. Given 06/23/2024 12:09 PM CDT 1 0 mL Given 06/20/2024 6:05 AM CDT 20 mL Given 06/18/2024 12:10 PM CDT 10 mL sodium chloride 0.9% flush 0.5-20 mL 0.5-20 mL, intra-catheter, As needed, line care, Starting on Sat06/15/24 at 1128, Flush volume based on line type and size. Flush before and after each use. sodium chloride 0.9% flush 0.5-20 mL 0.5-20 mL, intra-catheter, Every 8 hours scheduled, First dose on Sat06/15/24 at 1400, Flush volume based on line type and size. Given 06/19/2024 8:50 PM CDT 10 mL Given 06/18/2024 12:10 PM CDT 10 mL Given 06/17/2024 9:07 PM CDT 10 mL sodium chloride 0.9% flush 0.5-20 mL 0.5-20 mL, intra-catheter, As needed, line care, Starting on Sat06/15/24 at 1128, Flush volume based on line type and size. Flush before and after each use. sodium chloride 0.9% infusion 30 mL/hr, intravenous, Continuous PRN, KVO for medication administrations, Starting on Sat06/15/24 at 1125 New Bag 06/22/2024 7:51 AM CDT 30 mL/hr 30 mL/hr New Bag 06/18/2024 6:33 PM CDT 30 mL/hr 30 mL/hr New Bag 06/16/2024 6:26 AM CDT 30 mL/hr 30 mL/hr sodium chloride 0.9% irrigation 30 mL 30 mL, swish & spit, 4 times daily, First dose on Sat06/15/24 at 1200, Use as mouth rinse for oral care. Given 06/24/2024 4:04 PM CDT 30 mL Given 06/24/2024 1:16 PM CDT 30 mL Given 06/24/2024 9:32 AM CDT 30 mL sodium chloride 0.9% IVPB 0-250 mL 0-250 mL, intravenous, As needed, flush tubing for blood product administration, Starting on Sat06/15/24 at 1125, Prime blood tubing and administer amount needed to clear line (usually 50-100 mL) after transfusion complete. tacrolimus immediate-release capsule 0.5 mg 0.5 mg, oral, Every other day, First dose on Sat06/15/24 at 1345, Avoid grapefruit juice Given 06/23/2024 8:06 AM C DT 0.5 mg Given 06/21/2024 7:30 AM CDT 0.5 mg Given 06/19/2024 8:19 AM CDT 0.5 mg traZODone (DESYREL) tablet 50 mg 50 mg, oral, Once, On Sat06/21/24 at 2200, For 1 dose Given 06/21/2024 9:38 PM CDT 50 mg traZODone (DESYREL) tablet 50 mg 50 mg, oral, Once, On Sat06/22/24 at 2115, For 1 dose Given 06/23/2024 3:35 AM CDT 50 mg traZODone (DESYREL) tablet 50 mg 50 mg, oral, Nightly PRN, sleep, Starting on Sat06/23/24 at 2015 Given 06/23/2024 11:25 PM CDT 50 mg vancomycin 1,000 mg/200 mL in dextrose 5% (premix) 1,000 mg 1,000 mg (rounded from 877.5 mg = 15 mg/kg ? 58.5 kg), intravenous, Administer over 60 Minutes, Every 12 hours, First dose on Sat06/16/24 at 1215, Indications: Pneumonia, Community AcquiredIndications:Pneumonia, Community Acquired New Bag 06/18/2024 12:04 AM CDT 1,000 mg New Bag 06/17/2024 12:05 PM CDT 1,000 mg New Bag 06/17/2024 12:20 AM CDT 1,000 mg voriCONAZOLE (VFEND) tablet 200 mg 200 mg, oral, 2 times daily, First dose on Sat06/15/24 at 1345, Indications: Prophylaxis, MedicalIndications:Prophylaxis, Medical Given 06/24/2024 9:31 AM CDT 200 mg Given 06/23/2024 8:23 PM CDT 200 mg Given 06/23/2024 8:06 AM CDT 200 mg documented in this encounter Discontinued Medications Medication Sig Discontinue Reason Start Date End Da te minocycline (MINOCIN,DYNACIN) 100 mg capsuleIndications:Pn [place], Hospital Acquired Take 2 capsules (200 mg total) by mouth 2 (two) times a day for 9 doses 06/24/2024 06/24/2024 insulin glargine 100 unit/mL (3 mL) pen for injection Inject 10 Units under the skin nightly Stop Taking at Discharge 06/24/2024 UNKNOWN TO PATIENT Take 500 mg by mouth daily Patient endorses taking unknown 500 mg Iron product Stop Taking at Discharge 06/24/2024 UNKNOWN TO PATIENT Take 1 capsule by mouth daily Probiotic Stop Taking at Discharge 06/24/2024 documented as of this encounter Active and Recently Administered Medications Times are shown in CDT. Scheduled Medication Order 06/22/2024 06/23/2024 06/24/2024 acyclovir (ZOVIRAX) tablet 400 mg 400 mg, oral, Every 8 hours, First dose on Sat06/15/24 at 1345, Indications: Prophylaxis, Medical 0801 (Given - Provider: Kimberly Guevara RN)1554 (Given - Provider: Kimberly Guevara RN)2335 (Given - Provider: Chad Zendejas, BECKI) 0806 (Given - Provider: Dora Patel RN)1644 (Given - Provider: Dora Paetl RN)2325 (Given - Provider: Chad Zendejas RN) 0935 (Given - Provider: Silva Rasheed RN)1505 (Given - Provider: Silva Rasheed, BECKI) atorvastatin (LIPITOR) tablet 40 mg 40 mg, oral, Daily, First dose on Sat06/15/24 at 1345 0801 (Given - Provider: Kimberly Guevara RN) 0806 (Given - Provider: Dora Patel, BECKI) 0931 (Given - Provider: Silva Rasheed, BECKI) rilbfundkrm-cscqktxvs-c ilanter (TRELEGY ELLIPTA) 200-62.5-25 mcg inhaler 1 puff 1 puff, inhalation, Daily, First dose on Sat06/15/24 at 1345, Rn to administer. Rinse mouth with water after use. Do not swallow. 0802 (Given - Provider: Kimberly Guevara RN) 0807 (Given - Provider: Dora Patel, BECKI) 0935 (Given - Provider: Silva Rasheed, BECKI) gabapentin (NEURONTIN) capsule 300 mg 300 mg, oral, 4 times daily, First dose (after last modification) on Sat06/15/24 at 1715 0801 (Given - Provider: Kimberly Guevara RN)1148 (Given - Provider: Kimberly Guevara RN)1720 (Given - Provider: Kimberly Guevara RN)2037 (Given - Provider: Chad Zendejas RN) 0806 (Given - Provider: Dora Patel RN)1126 (Given - Provider: Dora Patel RN)1644 (Given - Provider: Dora Patel, BECKI)2023 (Given - Provider: Chad Zendejas, BECKI) 0935 (Given - Provider: Silva Rasheed, BECKI)1253 (Given - Provider: Silva Rasheed, BECKI)1714 (Given - Provider: Silva Rasheed, BECKI) guaiFENesin ER (MUCINEX) extended release tablet 1,200 mg 1,200 mg, oral, 2 times daily, First dose (after last modification) on Sat06/20/24 at 2200, Do not crush, chew, cut, dissolve, open or otherwise manipulate tablet/capsule. 800 (Given - Provider: Kimberly Guevara RN)2036 (Given - Provider: Chad Zendejas, RN) 0806 (Given - Provider: Dora Patel, BECKI)2023 (Given - Provider: Chad Zendejas, RN) 0931 (Given - Provider: Silva Rasheed, BECKI) heparin 10 unit/mL flush 50 Units 50 Units (5 mL), intra-catheter, 2 times daily, First dose on Sat06/15/24 at 1600, Do not use with Groshong catheter. Do not use with peripheral IV., Indications: Maintain Patency of Indwelling Vascular Catheter 0533 (Not Given - Provider: Narcisa Alva RN - Reason: Order parameters not met)1555 (Hold - Provider: Kimberly Guevara RN - Reason: Contraindicated - Comment: peripheral IV) 0552 (Not Given - Provider: Narcisa Alva RN - Reason: Order parameters not met)1440 (Canceled Entry - Provider: Dora Patel, BECKI) 0515 (Not Given - Provider: Narcisa Alva RN - Reason: Order parameters not met)1505 (Not Given - Provider: Silva Rahseed RN - Reason: See Provider Order) insulin glargine (LANTUS, SEMGLEE) 100 unit/mL injection 5 Units 5 Units, subcutaneous, Nightly, First dose on Sat06/22/24 at 2100, Do not hold if NPO. Do not mix with other insulins, Indications: Diabetes Mellitus 2037 (Given - Provider: Chad Zendejas, BECKI) 2023 (Given - Provider: Chad Zendejas, BECKI) insulin lispro (HumaLOG, ADMELOG) 100 unit/mL injection 0-10 Units 0-10 Units, subcutaneous, 3 times daily with meals, First dose on Sat06/17/24 at 1245, Blood glucose mg/dL: 149 or less: No insulin 150-199: add 2 unit 200-249: add 4 units 250-299: add 6 units 300-349: add 8 units and notify physician for adjustment of insulin orders. 350-399: add 10 units and notify physician for adjustment of insulin orders. Over 400: Notify physician for adjustment of insulin orders. Do NOT hold for NPO Status, Indications: Diabetes Mellitus 0801 (Given - Provider: Kimberly Guevara RN)1149 (Given - Provider: Kimberly Guevara, RN)1721 (Given - Provider: Kimberly Guevara, RN) 0804 (Given - Provider: Dora Patel, BECKI)1126 (Given - Provider: Dora Patel RN)1644 (Given - Provider: Dora Patel RN) 0750 (Not Given - Provider: Silva Rasheed, BECKI - Reason: See Provider Order)1304 (Given - Provider: Romana Ordonez RN)1822 (Not Given - Provider: Silva Rasheed RN - Reason: See Provider Order) insulin lispro (HumaLOG, ADMELOG) 100 unit/mL injection 0-5 Units 0-5 Units, subcutaneous, Nightly, First dose on Sat06/17/24 at 2100, Blood glucose mg/dL: 149 or less: No insulin 150-199: add 1 unit 200-249: add 2 units 250-299: add 3 units 300-349: add 4 units and notify physician for adjustment of insulin orders. 350-399: add 5 units and notify physician for adjustment of insulin orders. Over 400: Notify physician for adjustment of insulin orders. Do NOT hold for NPO Status, Indications: Diabetes Mellitus 2042 (Given - Provider: Chad Zendejas, BECKI) 2023 (Given - Provider: Chad Zendejas, BECKI) ipratropium-albuteroL (DUO-NEB) 0.5-2.5 mg/3 mL nebulizer solution 3 mL 3 mL, nebulization, 4 times daily (staff respiratory therapist), First dose (after last modification) on Sat06/16/24 at 1700, Indications: Chronic Obstructive Pulmonary Disease with Bronchospasms 0900 (Given - Provider: Marisa Willams, BENZENE WASHER OPERATOR)141 (Given - Provider: Marisa Willams CRTT)170 (Given - Provider: Marisa Willams CRTT)2012 (Given - Provider: Abby Hassan, BRANDEN) 0819 (Given - Provider: Cruz Flood, FRONT END DRUPAL DEVELOPER)1214 (Given - Provider: Curz Flood, FRONT END DRUPAL DEVELOPER)1720 (Given - Provider: Cruz Flood, BRANDEN)2034 (Given - Provider: Chad Oliveira, BRANDEN) 0831 (Given - Provider: Anahi Ruff, FRONT END DRUPAL DEVELOPER)1055 (Given - Provider: Anahi Ruff, BRANDEN - Comment: PT REQUEST)1617 (Not Given - Provider: Anahi Ruff, BRANDEN - Reason: Patient/family refused - Comment: PT GOING HOME) magnesium sulfate 2 g/50 mL in water (premix) 2 g (COMPLETED) 2 g, intravenous, Administer over 60 Minutes, Once, On Sat06/24/24 at 0800, For 1 dose 0932 (New Bag - Provider: Silva Rasheed RN)1032 (Stopped - Provider: Silva Rasheed RN) magnesium sulfate 4 g/100 mL in water (premix) 4 g (COMPLETED) 4 g, intravenous, Administer over 90 Minutes, Once, On Sat06/22/24 at 0815, For 1 dose 0756 (New Bag - Provider: Kimberly Guevara RN)0934 (Stopped - Provider: Kimberly Guevara RN) magnesium sulfate 4 g/100 mL in water (premix) 4 g (COMPLETED) 4 g, intravenous, Administer over 90 Minutes, Once, On Sat06/23/24 at 0815, For 1 dose 0809 (New Bag - Provider: Dora Patel RN)0951 (Stopped - Provider: Dora Patel RN) minocycline (MINOCIN,DYNACIN) capsule 200 mg 200 mg, oral, 2 times daily (for quinolones,etc), First dose on Angy 06/18/24 at 1800, For 19 doses, Do not crush, break, or open. Give 2 hrs before or 2 hrs after MVI, antacids, or other products containing sucralfate, magnesium, aluminum, iron, or zinc. May be taken without regard to meals., Indications: Pneumonia, Hospital Acquired 0440 (Given - Provider: Narcisa Alva, RN)1720 (Given - Provider: Kimberly Guevara RN) 0524 (Given - Provider: Chad Zendejas, BECKI)1644 (Given - Provider: Dora Patel, BECKI) 0610 (Given - Provider: Chad Zendejas RN)171 (Given - Provider: Silva Rasheed, BECKI) montelukast (SINGULAIR) tablet 10 mg 10 mg, oral, Nightly, First dose on Sat06/15/24 at 2100 2036 (Given - Provider: Chad Zendejas RN) 2022 (Given - Provider: Chad Zendejas, RN) mycophenolate mofetil (CELLCEPT) tablet 1,000 mg 1,000 mg, oral, 2 times daily, First dose on Sat06/15/24 at 1345, Do not crush, chew, cut, dissolve, open or otherwise manipulate tablet/capsule. 0801 (Given - Provider: Kimbrely Guevara RN)2036 (Given - Provider: Chad Zendejas RN) 0806 (Given - Provider: Dora Patel, BECKI)2023 (Given - Provider: Chad Zendejas RN) 0931 (Given - Provider: Silva Rasheed, BECKI) nicotine (NICODERM CQ) 21 mg patch 24 hour 1 patch 1 patch, transdermal, Administer over 24 Hours, Daily, First dose on Sat06/15/24 at 1345, Apply a new patch every 24 hours to a clean, dry, hairless site on the upper arm or hip. Rotate site. 0730 (Medication Removed - Provider: Kimberly Guevara RN)0756 (Medication Applied - Provider: Kimberly Guevara RN) 0806 (Medication Applied - Provider: Dora Patel, BECKI)0807 (Medication Removed - Provider: Dora Patel, BECKI) 0931 (Medication Applied - Provider: Silva Rasheed, BECKI)0932 (Medication Removed - Provider: Silva Rasheed, BECKI)1900 (Due: Medication Removed - Provider: Automatic Discharge Provider - Comment: Time automatically adjusted from order being discontinued) pantoprazole DR (PROTONIX) extended release tablet 40 mg 40 mg, oral, 2 times daily, First dose on Sat06/15/24 at 1345, Do not crush, chew, cut, dissolve, open or otherwise manipulate tablet/capsule., Indications: Stress Ulcer Prophylaxis 0801 (Given - Provider: Kimberly Guevara RN)2036 (Given - Provider: Chad Zendejas, BECKI) 08 (Given - Provider: Dora Patel, BECKI)2023 (Given - Provider: Chad Zendejas RN) 09 (Given - Provider: Silva Rasheed, RN) potassium chloride ER (KLOR-CON) extended release tablet 40 mEq (COMPLETED) 40 mEq, oral, Once, On Sat06/23/24 at 0815, For 1 dose, Tablets should not be crushed, chewed, dissolved, or otherwise manipulated. Capsules may be opened and sprinkled on a spoonful of applesauce or pudding, but the contents of the capsule should not be crushed or chewed. 0805 (Given - Provider: Dora Patel RN) ramelteon (ROZEREM) tablet 8 mg 8 mg, oral, Nightly, First dose on Sat06/18/24 at 2100, Indications: Sleep-Onset Insomnia 2036 (Given - Provider: Chad Zendejas RN) 2022 (Given - Provider: Chad Zendejas, BECKI) rivaroxaban (XARELTO) tablet 20 mg 20 mg, oral, Daily with dinner, First dose on Sat06/15/24 at 1800, Nurse to discontinue heparin infusion order and associated bolus at first administration of rivaroxaban using 'order condition met' order source. If patient is eating, administer doses of 15 mg or greater with food. If patient is not eating, still administer dose unless instructed differently by provider., Indications: Venous Thrombosis 1720 (Given - Provider: Kimberly Guevara RN) 164 (Given - Provider: Dora Patel RN) 171 (Given - Provider: Silva Rasheed, BECKI) sodium chloride 0.9% flush 0.5-20 mL 0.5-20 mL, intra-catheter, Every 8 hours scheduled, First dose on Sat06/15/24 at 1400, Flush volume based on line type and size. 0550 (Lab Draw - Provider: Narcisa Alva RN)1419 (Hold - Provider: Kimberly Guevara RN - Reason: Other - Comment: flushed with new IV start) 0643 (Lab Draw - Provider: Narcisa Alva RN)0644 (Not Given - Provider: Narcisa Alva RN - Reason: Other)1209 (Given - Provider: Dora Patel RN)2304 (Lab Draw - Provider: Narcisa Alva RN) 0519 (Not Given - Provider: Narcisa Alva RN - Reason: Other)1400 (Canceled Entry - Provider: Silva Rasheed RN) sodium chloride 0.9% irrigation 30 mL 30 mL, swish & spit, 4 times daily, First dose on Sat06/15/24 at 1200, Use as mouth rinse for oral care. 0802 (Hold - Provider: Kimberly Guevara RN - Reason: Patient/family refused)1117 (Hold - Provider: Kimberly Guevara RN - Reason: Patient/family refused)1600 (Hold - Provider: Kimberly Guevara RN - Reason: Patient/family refused) 0644 (Not Given - Provider: Narcisa Alva RN - Reason: Other)0754 (Canceled Entry - Provider: Dora Patel RN)1105 (Canceled Entry - Provider: Dora Patel RN)1644 (Canceled Entry - Provider: Dora Patel RN)2304 (Not Given - Provider: Narcisa Alva RN - Reason: Other) 0932 (Given - Provider: Silva Rasheed, BECKI)1316 (Given - Provider: Silva Rasheed, BECKI)1604 (Given - Provider: Silva Rasheed, BECKI) tacrolimus immediate-release capsule 0.5 mg 0.5 mg, oral, Every other day, First dose on Sat06/15/24 at 1345, Avoid grapefruit juice 0806 (Given - Provider: Dora Patel RN) traZODone (DESYREL) tablet 50 mg (COMPLETED) 50 mg, oral, Once, On Sat06/22/24 at 2115, For 1 dose 0335 (Given - Provider: Narcisa Alva, BECKI) voriCONAZOLE (VFEND) tablet 200 mg 200 mg, oral, 2 times daily, First dose on Sat06/15/24 at 1345, Indications: Prophylaxis, Medical 0801 (Given - Provider: Kimberly Guevara, RN)2036 (Given - Provider: Chad Zendejas, RN) 08 (Given - Provider: Dora Patel RN)2022 (Given - Provider: Chad Zendejas, RN) 0931 (Given - Provider: Silva Rasheed, BECKI) PRN Medication Order 06/22/2024 06/23/2024 06/24/2024 acetaminophen (TYLENOL) tablet 650 mg 650 mg, oral, Every 6 hours PRN, fever, and all platelet transfusions, Starting on Sat06/15/24 at 1125 aluminum & magnesium xwkixzvmp-eactshnddwz-j iphenhydramine-lidocain e (MAGIC MOUTHWASH) oral suspension 1-1-1 15 mL 15 mL, swish & swallow, 4 times daily PRN, other, mucositis, Starting on Sat06/15/24 at 1125, Indications: Chemotherapy-Induced Mucositis bacitracin-polymyxin B (POLYSPORIN) 500-10,000 unit/gram ointment tube 1 Application 1 Application, topical, Every 4 hours PRN, wound care, Starting on Sat06/15/24 at 1125, Apply to affected area: other, Indications: Minor Bacterial Skin Infections camphor-menthoL (SARNA) 0.5-0.5 % lotion topical, Every 2 hours PRN, itching, Starting on Sat06/15/24 at 1125, Apply to affected area: other, Indications: Pruritus of Skin dextrose (D10W) 10% bolus 250 mL(Linked Group 1) 250 mL, intravenous, at 1,000 mL/hr, Administer over 15 Minutes, Every 15 min PRN, blood glucose less than 70 mg/dL and UNABLE to swallow/take PO glucose/juice., Starting on Sat06/22/24 at 1336, After treatment for hypoglycemia, recheck BG followed [...] glucose less than 70 mg/dL, Starting on Sat06/22/24 at 1336, If patient is alert and able to [...] unable to take PO glucose/juice., Starting on Sat06/22/24 at 1336, After Glucagon is administered, position patient on [...] 1 mL SWFI. Use immediately following reconstitution. heparin 10 unit/mL flush 20-50 Units 20-50 Units (2-5 mL), intra-catheter, As needed, line care, with each use, Starting on Sat06/15/24 at 1125, Do not use with Groshong catheter. Do not use with peripheral IV Flush volume based on line type, size, and protocol., Indications: Maintain Patency of Indwelling Vascular Catheter loperamide (IMODIUM) capsule 2 mg 2 mg, oral, 3 times daily PRN, diarrhea, Starting on Sat06/21/24 at 2255, Maximum recommended dose 16 mg/day polyvinyl alcohol-povidone (REFRESH CLASSIC) 1.4-0.6 % ophthalmic solution 2 drop 2 drop, each eye, Every 4 hours PRN, dry eyes, Starting on Sat06/15/24 at 1125, Indications: Dry Eye ramelteon (ROZEREM) tablet 8 mg 8 mg, oral, Nightly PRN, sleep, Starting on Sat06/15/24 at 1656, Indications: Sleep-Onset Insomnia 0133 (Given - Provider: Narcisa Alva, BECKI) sodium chloride (OCEAN) 0.65 % nasal spray 2 spray 2 spray, each nostril, Every 1 hour PRN, other, dryness, Starting on Sat06/15/24 at 1125, Indications: Dry Nose sodium chloride 0.9% flush 0.5-20 mL 0.5-20 mL, intra-catheter, As needed, line care, Starting on Sat06/15/24 at 1128, Flush volume based on line type and size. Flush before and after each use. sodium chloride 0.9% flush 0.5-20 mL 0.5-20 mL, intra-catheter, As needed, line care, Starting on Sat06/15/24 at 1128, Flush volume based on line type and size. Flush before and after each use. sodium chloride 0.9% infusion 30 mL/hr, intravenous, Continuous PRN, KVO for medication administrations, Starting on Sat06/15/24 at 1125 0751 (New Bag - Provider: Kimberly Guevara RN) 2301 (Due: Stopped) sodium chloride 0.9% IVPB 0-250 mL 0-250 mL, intravenous, As needed, flush tubing for blood product administration, Starting on Sat06/15/24 at 1125, Prime blood tubing and administer amount needed to clear line (usually 50-100 mL) after transfusion complete. traZODone (DESYREL) tablet 50 mg 50 mg, oral, Nightly PRN, sleep, Starting on Sat06/23/24 at 2015 2325 (Given - Provider: Chad Zendejas, BECKI) Linked Groups Order Group 1: dextrose gel in packet 15 gJump to med 15 g, oral, Every 15 min PRN, low blood sugar, blood glucose less than 70 mg/dL, Starting on Sat06/22/24 at 1336, If patient is alert and able to [...] UNABLE to swallow/take PO glucose/juice., Starting on Sat06/22/24 at 1336, After treatment for hypoglycemia, recheck BG followed [...] Count Last Ordered Date First Ordered Date dextrose (D10W) 10% bolus 250 mL 3 06/22/20 24 06/15/2024 dextrose gel in packet 15 g 3 06/22/2024 06/15/2024 glucagon injection 1 mg 3 06/22/202405/19 guaiFENesin ER (MUCINEX) ext ended release tablet 1,200 mg 1 06/20/2024 minocycline (MINOCIN,DYNACIN ) 100 mg in sodium chloride 0.9% 250 mL IVPB 1 06/17/2024 sodium bicarbonate 8.4 % (1 mEq/mL) injection - ADS Override Pull 1 06/17/2024 albuterol HFA (PROVENTIL HFA ,VENTOLIN HFA,PROAIR HFA) 90 mcg/actuation inhaler 2 puff 1 06/16/2024 acetaminophen (TYLENOL) tablet 650 mg albuterol 2.5 mg/0.5 mL nebu lizer solution 2.5 mg 1 06/15/2024 aluminum & magnesium wffaqlhzc-kflydkkykqf-ziskvyreldmcptb-lido aida (MAGIC MOUTHWASH) oral suspension 1-1-1 15 mL 1 06/15/2024 bacitracin-polymyxin B (POLY SPORIN) 500-10,000 unit/gram ointment tube 1 Application 1 06/15/2024 camphor-menthoL (SARNA) 0.5-0.5 % lotion 1 06/15/2024 Carrier Fluids for Secondary Infusion - 0.9% Sodium Chloride 2 06/15/2024 cefepime (MAXIPIME) 1,000 mg /10 mL in sterile water (premix) 1,000 mg 1 06/15/2024 heparin 10 unit/mL flush 20-50 Units 1 05/19 heparin 10 unit/mL flush 50 Units 1 loperamide (IMODIUM) capsule 2 mg 1 024 magnesium sulfate 6 g in sod ium chloride 0.9% 250 mL IVPB 1 06/15/2024 metoprolol (LOPRESSOR) injection 2.5 mg 1 0 06/15/2024 potassium chloride ER (KLOR- CON) extended release tablet 40 mEq 1 06/15/2024 sodium chloride (OCEAN) 0.65 % nasal spray 2 spray 1 06/15/2024 sodium chloride 0.9% flush 0.5-20 mL 2 05/19 sodium chloride 0.9% IVPB 0-250 mL 1 2023 sodium phosphate - potassium phosphate (K-PHOS NEUTRAL) tablet 500 mg 1 06/15/2024 white petrolatum-mineral oiL (EUCERIN) cream 1 06/15/2024 Lab Orders Without Results Count Last Ordered D ate First Ordered Date POCT GLUCOSE DEVICE 30 06/24/2024 06/16/20 24 Imaging Orders Without Results Count Last Order ed Date First Ordered Date PEP THERAPY/AIRWAY CLEARANCE 14 06/23/2024 06/18/2024 SIX MINUTE WALK 1 06/22/2024 EKG Orders Without Results Count Last Ordered D ate First Ordered Date ECG 12-LEAD 1 06/16/2024 General Supply Count Last Ordered Date First Or dered Date MISCELLANEOUS DME 1 06/22/2024 WALKER W/ WHEELS (LESS THAN 350 LBS.) 1 Nursing Count Last Ordered Date First Orde red Date INSERT KIDD CATHETER 1 06/17/2024 NURSING COMMUNICATION 1 06/16/2024 VERIFY INFORMED CONSENT 1 06/16/2024 WEIGH PATIENT 1 06/16/2024 Consult Count Last Ordered Date First Orde red Date IP CONSULT TO CELLULOSE INSULATION HELPER 1 4 CONSULT TO TRANSPLANT INFECTIOUS DISEASE 1 06/19/2024 IP CONSULT TO NUTRITION SERVICES 1 06/15/20 24 IP CONSULT TO PULMONOLOGY 1 06/15/2024 IP CONSULT TO VASCULAR ACCESS TEAM 1 2023 Admission Count Last Ordered Date First Orde red Date ADMIT TO INPATIENT 1 06/15/2024 Transfer Count Last Ordered Date First Orde red Date TRANSFER PATIENT TO NEW UNIT 1 06/18/2024 Discharge Count Last Ordered Date First Orde red Date DISCHARGE PATIENT 1 06/24/2024 CORE MEASURES Count Last Ordered Date First Ord ered Date REASON FOR NO VTE PROPHYLAXIS AT ADMISSION 2 06/16/2024 06/15/2024 ADT Patient Update Count Last Ordered Date Firs t Ordered Date PROVIDER TREATMENT TEAM 1 06/15/2024 documented in this encounter Additional Health Concerns Infection Onset Date Last Indicated Resolved Time COVID: Suspected 06/15/2024 06/15/2024 06/15/2024 3:07 PM CDT Tuberculosis (rule out) Comment:06/18/2024 IP Review: case reviewed by IP epi, ok to come off precautions. Lamar Johnson RN +AFB stain 06/17/2024 06/17/2024 06/18/2024 10:45 AM CDT C. 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 documented as of this encounter Care Teams Panelboard Assembler Relationship Specialty Start Date End Date Kirt Lindsay DO PCP - General Internal Medicine 02/02/21 Josué Del Valle MD PhD Medical Oncologist/Flake Drier Medical Oncology 08/26/19 Cal Carranza DO [address] [place] [address] Conventional Mortgage Underwriter Internal Medicine 06/12/23 Halie Khan MD [address] [facility] [address] [place] [id number] Sports Photographer Critical Care Med 06/12/23 Wilfred Kinsey MD [address] [address] Consulting Physician Gastroenterology 03/02/24 documented as of this encounter
--- OUTSIDE RECORDS SUMMARY | 2024-11-22 10:49 | XMS_ITS | Encounter Summary ---
Author Organization [facility] Healthcare Address [address] [place] [address] Care Team Providers Care Airline Station Agent Name Role Phone Josué Del Valle MD PhD Unavailable [phone] Kirt Lindsay DO Primary Care Provider [phone] Cal Carranza DO Unavailable [phone] Halie Khan MD Unavailable [phone] Wilfred Kinsey MD Unavailable Encounter Details Date Type Department Care Team (Late st Contact Info) Description 05/04/2024 TCC Subsequent Outreach [facility] [address] [place] [id number] Steve Tobin, RN Social History Tobacco Use Types Packs/Day Years Used Date Smoking Tobacco: Some Days Cigarettes 0.5 40 Started: 1984 Smokeless Tobacco: Never Comments:pt states tried to quit [facility] Utilities Answer Date Recorded In the [...] week 03/30/2024 How often do you attend congregational or hoahaoism serv ices? Never 03/30/2024 Do you belong to any clubs o r organizations such as congregational groups, unions, fraternal or athletic groups, or [...] in a mcc (including now)? No 03/30/2024 Personal Safety Answer Date Recorded Have you ever been in or are you currently in a harmful physical or emotional relationship or is someone making you feel afraid or unsafe? 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 CTA chest did not show evidence of pulmonary embolus. Notable for emphysema with bullous changes in the anterior right lower lobe, dense multifocal airspace consolidations right upper lobe and to a lesser extent posterior left lower lobe co stable bilateral pulmonary nodules, will 0.3 pericardial effusion. Patient found to have multifocal pneumonia and completed 7 days of cefepime and 3 days of azithromycin. Patient is on chronic prophylactic therapy with voriconazole and acyclovir. Patient's respiratory status improved throughout hospitalization. Patient also completed 42 day Ancef therapy for prior MSSA bacteremia. PICC line has been discontinued at time of discharge. Patient will need to follow up with his PCP within a week of discharge TCC Outreach: Called at the number listed and LM for a return call. The monitoring period has been completed and this episode resolved. No future appointments. documented in this encounter Plan of Treatment Not on file documented as of this encounter Visit Diagnoses Not on filedocumented in this encounter Care Teams Airline Station Agent Relationship Specialty Start Date End Date YaKirt casas DO PCP - General Internal Medicine 02/02/21 Josué Del Valle MD PhD Medical Oncologist/Four Horse Hitch Driver Medical Oncology 08/26/19 Cal Carranza DO [address] [place] [address] Correctional Nurse Internal Medicine 06/12/23 Halie Khan MD [address] [address] Complex Case Manager Critical Care Med 06/12/23 Wilfred Kinsey MD [address] [address] Consulting Physician Gastroenterology 03/02/24 documented as of this encounter
--- OUTSIDE RECORDS SUMMARY | 2024-11-22 10:49 | XMS_ITS | Encounter Summary ---
Author Organization [facility] Healthcare Address [address] [place] [address] Care Team Providers Care Factory Worker Name Role Phone Josué Del Valle MD PhD Unavailable [phone] Kirt Lindsay DO Primary Care Provider [phone] Cal Carranza DO Unavailable [phone] Halie Khan MD Unavailable [phone] Wilfred Kinsey MD Unavailable Encounter Details Date Type Department Care Team (Late st Contact Info) Description 04/14/2024 TCC Subsequent Outreach [facility] [address] [place] [id number] Steve Tobin, RN Social History Tobacco Use Types Packs/Day Years Used Date Smoking Tobacco: Some Days Cigarettes 0.5 40 Started: 1985 Smokeless Tobacco: Never Comments:pt states tried to quit [facility] Utilities Answer Date Recorded In [...] week 03/30/2024 How often do you attend judaism or restorationist serv ices? Never 03/30/2024 Do you belong [...] in a intermediate (including now)? No 03/30/2024 Personal Safety Answer Date Recorded Have you ever been in or are you currently in a harmful physical or emotional relationship or is someone making you feel afraid or unsafe? 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 CTA [...] of discharge TCC Outreach: Called at the [facility] and for a return call. 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 documented in this encounter Plan of Treatment Not on file documented as of this encounter Visit Diagnoses Not on filedocumented in this encounter Care Teams Factory Worker Relationship Specialty Start Date End Date Kirt Lindsay DO PCP - General Internal Medicine 02/02/21 Josué Del Valle MD PhD Medical Oncologist/Bookkeeping Assistant Medical Oncology 08/26/19 Cal Carranza DO [address] [place] [address] Whipped Topping Mixer Internal Medicine 06/12/23 Halie Khan MD [address] [place] [address] Director Data Critical Care Med 06/12/23 Wilfred Kinsey MD [address] [address] Consulting Physician Gastroenterology 03/02/24 documented as of this encounter
--- OUTSIDE RECORDS SUMMARY | 2024-11-22 10:49 | XMS_ITS | Encounter Summary ---
Author Organization [facility] Address [address] [place] [address] Care Team Providers Care Yarn Spinner Name Role Phone Josué Del Valle MD PhD Unavailable [phone] Kirt Lindsay DO Primary Care Provider [phone] Cal Carranza DO Unavailable [phone] Halie Khan MD Unavailable [phone] Wilfred Kinsey MD Unavailable Encounter Details Date Type Department Care Team (Late st Contact Info) Description 04/14/2024 TCC Subsequent Outreach [facility] [address] [place] [address] Vijaya Valencia, RN Social History Tobacco Use Types Packs/Day Years Used Date Smoking Tobacco: Some Days Cigarettes 0.5 40 Started: 1985 Smokeless Tobacco: Never Comments:pt states tried to quit [facility] Utilities Answer Date Recorded In [...] week 03/30/2024 How often do you attend anabaptism or oriental orthodox serv ices? Never 03/30/2024 Do you belong to any clubs o r organizations such as anabaptism groups, unions, fraternal or athletic groups, or [...] in a halfway (including now)? No 03/30/2024 Personal Safety Answer Date Recorded Have you ever been in or are you currently in a harmful physical or emotional relationship or is someone making you feel afraid or unsafe? Denies 03/27/2024 Sex and Gender Information Value Date Recorded Sex Assigned at Not on file Legal Sex Male 10:48 AM INTERVENTIONAL CARDIOLOGIST Gender Identity Not on file Sexual Orientation Not on file documented as of this encounter Progress Notes * Vijaya Valencia RN - 04/14/2024 4:21 PM CDT Phone Call for Transitional Care Clinic (TCC) Discharge Date: 04/03/[address]: Discharge to home or self care Diagnosis: PNA Patient's preferred phone number: [phone] Return call from patient. He states he is doing great. He has his medications and appointments. No future appointments. documented in this encounter Plan of Treatment Not on file documented as of this encounter Visit Diagnoses Not on filedocumented in this encounter Care Teams Yarn Spinner Relationship Specialty Start Date End Date Kirt Lindsay DO PCP - General Internal Medicine 02/02/21 Josué Del Valle MD PhD Medical Oncologist/Block Press Operator Medical Oncology 08/26/19 Cal Carranza DO [address] [address] Coremaker Machine Internal Medicine 06/12/23 Halie Khan MD [address] [address] Gifted Program Teacher Critical Care Med 06/12/23 Wilfred Kinsey MD [address] [facility] [place] [address] Consulting Physician Gastroenterology 03/02/24 documented as of this encounter
--- OUTSIDE RECORDS SUMMARY | 2024-11-22 10:49 | XMS_ITS | Encounter Summary ---
Author Organization [facility] Healthcare Address [address] [place] [address] Care Team Providers Care Visitor Service Assistant Name Role Phone Josué Del Valle MD PhD Unavailable [phone] Kirt Lindsay DO Primary Care Provider [phone] Cal Carranza DO Unavailable [phone] Halie Khan MD Unavailable [phone] Wilfred Kinsey MD Unavailable Encounter Details Date Type Department Care Team (Late st Contact Info) Description 03/07/2024 Orders Only [facility] Home Care Services [address] [place] [address] Fela Graham RPh Social History Tobacco Use Types Packs/Day Years Used Date Smoking Tobacco: Some Days Cigarettes 0.5 40 Started: 1985 Smokeless Tobacco: Never Comments:pt states tried to quit [facility] Utilities Answer Date Recorded In the past 12 months has e electric, gas, oil, or water company threatened to shut off services in your home? No 02/20/2024 Social Connection and Isolation Panel [NHANES] A nswer Date Recorded In a typical week, how many times do you talk on the phone with family, friends, or neighbors? Three times a week 02/20/2024 How often do you get togethe r with friends or relatives? Three times a week 02/20/2024 How often do you attend chur ch or advent services? Never 02/20/2024 Do you belong to any clubs o r organizations such as nondenominational groups, unions, fraternal or athletic groups, or school groups? No 02/20/2024 How often do you attend meet ings of the clubs or organizations you belong to? Never 02/20/2024 Are you , , di vorced, , never , or living with a partner? 02/20/2024 AUDIT-C Answer Date Recorded Q1: How often [...] medical care, and heating? Not very hard 02/20/2024 Hunger Vital Sign Answer Date Recorded Within the past 12 months, y ou worried that your food would run out before you got the money to buy more. Never true 02/20/20 24 Within the past 12 months, t he food you bought just didn't last and you didn't have money to get more. Never true 02/20/2024 PRAPARE - Transportation Answer Date Re corded In the past 12 months, has l ack of transportation kept you from medical appointments or from getting medications? No 02/2024 In the past 12 months, has l ack of transportation kept you from meetings, work, or from getting things needed for daily living? No 02/20/2024 Housing Stability Vital Sign Answer [place] Recorded In the last 12 months, was t here a time when you were not able to pay the mortgage or rent on time? No 02/20/2024 In the last 12 months, how many places have you lived? 1 02/20/2024 In the last 12 months, was t here a time when you did not have a steady place to sleep or slept in a mcc (including now)? No 02/20/2024 Personal Safety Answer Date Recorded Have you ever been in or are you currently in a harmful physical or emotional relationship or is someone making you feel afraid or unsafe? 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 Osmar Orta/Dr. Abdirahman Dey/Fela Graham PharmD Following Pharmacist: Summer Huston Maintain IV access PICC Line with 10ml normal saline and 5ml heparin 50units/5ml for patency per established protocol. Cefazolin 2gm in Sterile Water 20mL, infuse intravenously over 5 minutes every 8 hours by slow IV push. LOT: ~04/02/24 - no firm stop Labs: Weekly CBC w diff, CMP, CRP, ESR 1 SNV every week for 5 weeks for patient assessment, teaching, IV catheter care, lab work. 6 PRN visits for additional teaching, line care, labs or other symptom management documented in this encounter Plan of Treatment Not on file documented as of this encounter Visit Diagnoses Not on filedocumented in this encounter Care Teams Visitor Service Assistant Relationship Specialty Start Date End Date Kirt Lindsay DO PCP - General Internal Medicine 02/02/21 Josué Del Valle MD PhD Medical Oncologist/Animal Rides Manager Medical Oncology 08/26/19 Cal Carranza DO [address] [place] [address] Director Of Exhibit Development Internal Medicine 06/12/23 Halie Khan MD [address] [facility] [address] [place] [address] Load Out Person Critical Care Med 06/12/23 Wilfred Kinsey MD [address] [address] Consulting Physician Gastroenterology 03/02/24 documented as of this encounter
--- OUTSIDE RECORDS SUMMARY | 2024-11-22 10:49 | XMS_ITS | Encounter Summary ---
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 [[id number]] Ordering Provider: Damian Snow MD Status: Completed (Past End Date/Time) Ordered On: 03/27/242127 Starts/Ends: 03/27/242128 - 03/27/242238 Ordered Dose (Remaining/Total): 1,000 mL (0/1) Route: intravenous Frequency: Once Ordered Rate/Order Duration: -- / -- Line Med Link Info Comment Peripheral IV 03/27/24 18 G Anterior;Left Forearm 03/27/242138 by Sherita Rabago RN -- Timestamps Action Dose Route Other Information 03/27/242138 New Bag 1,000 mL intravenous Performed by: Sherita Rabago RN Scanned Package: 7160-2005-46 vancomycin 1500 mg/250 mL in sodium chloride 0.9% (premix) 1,500 mg [[id number]] Ordering Provider: Damian Snow MD Status: Completed (Past End Date/Time) Ordered On: 03/27/242137 Starts/Ends: 03/27/242138 - 03/28/24 0100 Ordered Dose (Remaining/Total): 1,500 mg (0/1) Route: intravenous Frequency: Once Ordered Rate/Order Duration: -- / 90 Minutes Line Med Link Info Comment Peripheral IV 03/27/24 18 G Anterior;Left Forearm 03/27/242329 by Sherita Rabago RN -- Timestamps Action Dose / Duration Route Other Information 03/27/242329 New Bag 1,500 mg 90 Minutes intravenous Performed by: Sherita Rabago RN Comments: medication not compatible Scanned Package: 0358-1537-91, 7797-1598-01 cefepime (MAXIPIME) 2,000 mg in sodium chloride 0.9% 100 mL IVPB [[id number]] Ordering Provider: Damian Snow MD Status: Completed (Past End Date/Time) Ordered On: 03/27/242137 Starts/Ends: 03/27/242138 - 03/27/242252 Ordered Dose (Remaining/Total): 2,000 mg (0/1) Route: intravenous Frequency: Once Ordered Rate/Order Duration: 200 mL/hr / 30 Minutes Admin Instructions: Mini-Bag Plus bag Line Med Link Info Comment Peripheral IV 03/27/24 18 G Anterior;Left Forearm 03/27/242222 by Sherita Rabago RN -- Timestamps Action Dose / Rate / Duration Route Other Information 03/27/242222 New Bag 2,000 mg 200 mL/hr 30 Minutes intravenous Performed by: Sherita Rabago RN Scanned Package: [address]-9, 2545-4374-13 azithromycin (ZITHROMAX) 500 mg/250 mL in sodium chloride 0.9% (premix) 500 mg [[id number]] Ordering Provider: Damian Snow MD Status: Completed (Past End Date/Time) Ordered On: 03/27/242137 Starts/Ends: 03/27/242144 - 03/27/242329 Ordered Dose (Remaining/Total): 500 mg (0/1) Route: intravenous Frequency: Once Ordered Rate/Order Duration: 250 mL/hr / 60 Minutes Line Med Link Info Comment Peripheral IV 03/27/24 18 G Anterior;Left Forearm 03/27/242222 by Sherita Rabago RN -- Timestamps Action Dose / Rate / Duration Route Other Information 03/27/242222 New Bag 500 mg 250 mL/hr 60 Minutes intravenous Performed by: Sherita Rabago RN Scanned Package: 20719-298-55, 0132-8344-55 albuterol 2.5 mg/0.5 mL nebulizer solution 10 mg [[id number]] Ordering Provider: Damian Snow MD Status: Completed (Past End Date/Time) Ordered On: 03/27/242138 Starts/Ends: 03/27/242139 - 03/27/242202 Ordered Dose (Remaining/Total): 10 mg (0/1) Route: nebulization Frequency: Once Ordered Rate/Order Duration: -- / -- Timestamps Action Dose Route Other Information 03/27/242202 Given 10 mg nebulization Performed by: Cha Burch, BRANDEN Scanned Package: 5075-1172-59, 8214-3358-16, 9396-1946-56, 4234-2298-25 ipratropium (ATROVENT) 0.02 % nebulizer solution 0.5 mg [[id number]] Ordering Provider: Damian Snow MD Status: Completed (Past End Date/Time) Ordered On: 03/27/242138 Starts/Ends: 03/27/24213903/27/242202 Ordered Dose (Remaining/Total): 0.5 mg (0/1) Route: nebulization Frequency: Once Ordered Rate/Order Duration: -- / -- Timestamps Action Dose Route Other Information 03/27/242202 Given 0.5 mg nebulization Performed by: Cha Burch, TENANT RELATIONS COORDINATOR Scanned Package: 5293-2132-88 predniSONE (DELTASONE) tablet 50 mg [[id number]] Ordering Provider: Damian Snow MD Status: Completed (Past End Date/Time) Ordered On: 03/27/242138 Starts/Ends: 03/27/242139 - 03/27/242299 Ordered Dose (Remaining/Total): 50 mg (0/1) Route: oral Frequency: Once Ordered Rate/Order Duration: -- / -- Timestamps Action Dose Route Other Information 03/27/242299 Given 50 mg oral Performed by: Sherita Rabago RN Comments: breathing treatment Scanned Package: 9495-1740-27, 76944-816-97, 23809-518-74 sodium chloride 0.9% bolus 1,000 mL [[id number]] Ordering Provider: Damian Snow MD Status: Completed (Past End Date/Time) Ordered On: 03/27/242138 Starts/Ends: 03/27/242139 - 03/28/2413 Ordered Dose (Remaining/Total): 1,000 mL (0/1) Route: intravenous Frequency: Once Ordered Rate/Order Duration: -- / -- Line Med Link Info Comment Peripheral IV 03/27/24 18 G Anterior;Left Forearm 03/27/242313 by Sherita Rabago RN -- Timestamps Action Dose Route Other Information 03/27/242313 New Bag 1,000 mL intravenous Performed by: Sherita Rabago RN Scanned Package: 5126-8303-91 sodium chloride 0.9 % nebulizer solution - ADS Override Pull [[id number]] Status: Dispensed (Past End Date/Time) Ordered On: 03/27/242149 Starts/Ends: 03/27/242149 - 03/28/24951 Ordered Dose (Remaining/Total): -- (11/18) Route: -- Frequency: -- Ordered Rate/Order Duration: -- / -- Admin Instructions: Created by cabinet override Note to pharmacy: Created by cabinet override (No admins scheduled or recorded for this medication) ioversoL (OPTIRAY 350) syringe 100 mL [[id number]] Ordering Provider: Damian Snow MD Status: Completed (Past End Date/Time) Ordered On: 03/27/242200 Starts/Ends: 03/27/242200 - 03/27/242202 Ordered Dose (Remaining/Total): 100 mL (0/1) Route: intravenous Frequency: Once in imaging Ordered Rate/Order Duration: -- / -- Line Med Link Info Comment Peripheral IV 03/27/24 18 G Anterior;Left Forearm 03/27/242202 by Aleah Arnold, RT -- Timestamps Action Dose Route / Site Other Information 03/27/242202 Contrast Given 80 mL intravenous Left Forearm Performed by: Aleah Arnold, RT Comments: PE r/o Scanned Package: 8890-5862-18 sodium chloride 0.9% bolus 100 mL [[id number]] Ordering Provider: Damian Snow MD Status: Completed (Past End Date/Time) Ordered On: 03/27/242200 Starts/Ends: 03/27/242200 - 03/27/242204 Ordered Dose (Remaining/Total): 100 mL (0/1) Route: intravenous Frequency: Once in imaging Ordered Rate/Order Duration: -- / -- Line Med Link Info Comment Peripheral IV 03/27/24 18 G Anterior;Left Forearm 03/27/242203 by Aleah Arnold, RT -- Timestamps Action Dose Route / Site Other Information 03/27/242203 New Bag 100 mL intravenous Left Forearm Performed by: Aleah Arnold, RT Scanned Package: 9897-5004-52 acyclovir (ZOVIRAX) capsule 400 mg [[id number]] Ordering Provider: Ady Neal MD Status: Dispensed Ordered On: 03/28/24242 Start: 03/28/24 06 Ordered Dose (Remaining/Total): 400 mg (--/--) Route: oral Frequency: Every 8 hours scheduled Ordered Rate/Order Duration: -- / -- Timestamps Action Dose Route Other Information 03/31/24 0521 Given 400 mg oral Performed by: Nadia Mancia RN Scanned Package: 9038-7734-12, 6470-3880-59 atorvastatin (LIPITOR) tablet 40 mg [[id number]] Ordering Provider: Ady Neal MD Status: Dispensed Ordered On: 03/28/24 0243 Start: 03/28/24 0900 Ordered Dose (Remaining/Total): 40 mg (--/--) Route: oral Frequency: Daily Ordered Rate/Order Duration: -- / -- Timestamps Action Dose Route Other Information 03/31/24 0829 Given 40 mg oral Performed by: Jenifer Alcantar RN Scanned Package: 20167-355-92 cholecalciferol (VITAMIN D-3) tablet 2,000 Units [[id number]] Ordering Provider: Ady Neal MD Status: Dispensed Ordered On: 03/28/24242 Start: 03/28/24 0900 Ordered Dose (Remaining/Total): 2,000 Units (--/--) Route: oral Frequency: Every morning Ordered Rate/Order Duration: -- / -- Admin Instructions: Each tablet contains 1,000 units (25 mcg) of cholecalciferol. Timestamps Action Dose Route Other Information 03/31/24828 Given 2,000 Units oral Performed by: Jenifer Alcantar RN Scanned Package: [id number], [id number] cyanocobalamin (Vitamin B-12) tablet 1,000 mcg [[id number]] Ordering Provider: Ady Neal MD Status: Dispensed Ordered On: 03/28/24242 Start: 03/28/24899 Ordered Dose (Remaining/Total): 1,000 mcg (--/--) Route: oral Frequency: Every morning Ordered Rate/Order Duration: -- / -- Timestamps Action Dose Route Other Information 03/31/24828 Given 1,000 mcg oral Performed by: Jenifer Alcantar RN Scanned Package: [id number], [id number] gabapentin (NEURONTIN) capsule 300 mg [[id number]] Ordering Provider: Ady Neal MD Status: Dispensed Ordered On: 03/28/24242 Start: 03/28/24 08 Ordered Dose (Remaining/Total): 300 mg (--/--) Route: oral Frequency: 4 times daily Ordered Rate/Order Duration: -- / -- Timestamps Action Dose Route Other Information 03/31/24 120 Given 300 mg oral Performed by: Jenifer Alcantar RN Scanned Package: 63240-222-09 guaiFENesin (ROBITUSSIN) 20 mg/mL oral liquid 100 mg [[id number]] Ordering Provider: Ady Neal MD Status: Dispensed Ordered On: 03/28/24242 Start: 03/28/24240 Ordered Dose (Remaining/Total): 100 mg (--/--) Route: oral Frequency: 3 times daily PRN Ordered Rate/Order Duration: -- / -- Timestamps Action Dose Route Other Information 03/30/24 0352 Given 100 mg oral Performed by: Ashley Rios RN Scanned Package: 3631-9351-01 guaiFENesin ER (MUCINEX) extended release tablet 600 mg [[id number]] Ordering Provider: Ady Neal MD Status: Dispensed Ordered On: 03/28/24242 Start: 03/28/24899 Ordered Dose (Remaining/Total): 600 mg (--/--) Route: oral Frequency: 2 times daily Ordered Rate/Order Duration: -- / -- Admin Instructions: Do not crush, chew, cut, dissolve, open or otherwise manipulate tablet/capsule. Timestamps Action Dose Route Other Information 03/31/24827 Given 600 mg oral Performed by: Jenifer Alcantar RN Scanned Package: 15359-235-[address] (PROTONIX) extended release tablet 40 mg [[id number]] Ordering Provider: Ady Neal MD Status: Dispensed Ordered On: 03/28/24242 Start: 03/28/24899 Ordered Dose (Remaining/Total): 40 mg (--/--) Route: oral Frequency: 2 times daily Ordered Rate/Order Duration: -- / -- Admin Instructions: Do not crush, chew, cut, dissolve, open or otherwise manipulate tablet/capsule. Timestamps Action Dose Route Other Information 03/31/24828 Given 40 mg oral Performed by: Jenifer Alcantar RN Scanned Package: 05724-590-88 rivaroxaban (XARELTO) tablet 20 mg [[id number]] Ordering Provider: Ady Neal MD Status: Dispensed Ordered On: 03/28/24242 Start: 03/28/24799 Ordered Dose (Remaining/Total): 20 mg (--/--) Route: oral Frequency: Daily with breakfast Ordered Rate/Order Duration: -- / -- Admin Instructions: Nurse to discontinue heparin infusion order and associated bolus at first administration of rivaroxaban using 'order condition met' order source. If patient is eating, administer doses of 15 mg or greater with food. If patient is not eating, still administer dose unless instructed differently by provider. Timestamps Action Dose Route Other Information 03/31/24827 Given 20 mg oral Performed by: Jenifer Alcantar RN Scanned Package: 77274-218-86 sucralfate (CARAFATE) 100 mg/mL oral suspension 1 g [[id number]] Ordering Provider: Ady Neal MD Status: Dispensed Ordered On: 03/28/24242 Start: 03/28/24 08 Ordered Dose (Remaining/Total): 1 g (--/--) Route: oral Frequency: 4 times daily (with meals and nightly) Ordered Rate/Order Duration: -- / -- Timestamps Action Dose Route Other Information 03/31/241201 Given 1 g oral Performed by: Jenifer Alcantar RN Scanned Package: 53106-586-11 voriCONAZOLE (VFEND) tablet 200 mg [[id number]] Ordering Provider: Ady Neal MD Status: Dispensed Ordered On: 03/28/24242 Start: 03/28/24899 Ordered Dose (Remaining/Total): 200 mg (--/--) Route: oral Frequency: 2 times daily Ordered Rate/Order Duration: -- / -- Timestamps Action Dose Route Other Information 03/31/24827 Given 200 mg oral Performed by: Jenifer Alcantar RN Scanned Package: 42302-060-20, 60755-123-51 acetaminophen (TYLENOL) tablet 650 mg [[id number]] Ordering Provider: Ady Neal MD Status: Verified Ordered On: 03/28/24242 Start: 03/28/24241 Ordered Dose (Remaining/Total): 650 mg (--/--) Route: oral Frequency: Every 4 hours PRN Ordered Rate/Order Duration: -- / -- Admin Instructions: Administer if patient can swallow tablets. (No admins scheduled or recorded for this medication) acetaminophen (TYLENOL) 32 mg/mL oral liquid 650 mg [[id number]] Ordering Provider: Ady Neal MD Status: Verified Ordered On: 03/28/24242 Start: 03/28/24241 Ordered Dose (Remaining/Total): 650 mg (--/--) Route: feeding tube Frequency: Every 4 hours PRN Ordered Rate/Order Duration: -- / -- Admin Instructions: Administer if patient receiving meds per tube. (No admins scheduled or recorded for this medication) acetaminophen (TYLENOL) suppository 650 mg [[id number]] Ordering Provider: Ady Neal MD Status: Verified Ordered On: 03/28/24242 Start: 03/28/24241 Ordered Dose (Remaining/Total): 650 mg (--/--) Route: rectal Frequency: Every 4 hours PRN Ordered Rate/Order Duration: -- / -- Admin Instructions: Administer if patient cannot tolerate enteral route. (No admins scheduled or recorded for this medication) ramelteon (ROZEREM) tablet 8 mg [[id number]] Ordering Provider: Ady Neal MD Status: Dispensed Ordered On: 03/28/24242 Start: 03/28/24241 Ordered Dose (Remaining/Total): 8 mg (--/--) Route: oral Frequency: Nightly PRN Ordered Rate/Order Duration: -- / -- Timestamps Action Dose Route Other Information 03/29/242027 Given 8 mg oral Performed by: Ashley Rios RN Scanned Package: 47213-085-02 ondansetron ODT (ZOFRAN-ODT) disintegrating tablet 4 mg [[id number]] Ordering Provider: Ady Neal MD Status: Verified Ordered On: 03/28/24242 Start: 03/28/24241 Ordered Dose (Remaining/Total): 4 mg (--/--) Route: oral Frequency: Every 6 hours PRN Ordered Rate/Order Duration: -- / -- (No admins scheduled or recorded for this medication) ondansetron (ZOFRAN) injection 4 mg [[id number]] Ordering Provider: Ady Neal MD Status: Verified Ordered On: 03/28/24242 Start: 03/28/24241 Ordered Dose (Remaining/Total): 4 mg (--/--) Route: intravenous Frequency: Every 6 hours PRN Ordered Rate/Order Duration: -- / 2 Minutes (No admins scheduled or recorded for this medication) polyethylene glycol (MIRALAX) packet 17 g [[id number]] Ordering Provider: Ady Neal MD Status: Verified Ordered On: 03/28/24242 Start: 03/28/24241 Ordered Dose (Remaining/Total): 17 g (--/--) Route: oral Frequency: Daily PRN Ordered Rate/Order Duration: -- / -- (No admins scheduled or recorded for this medication) bisacodyl EC (DULCOLAX EC) tablet 10 mg [[id number]] Ordering Provider: Ady Neal MD Status: Verified Ordered On: 03/28/24242 Start: 03/28/24241 Ordered Dose (Remaining/Total): 10 mg (--/--) Route: oral Frequency: Daily PRN Ordered Rate/Order Duration: -- / -- Admin Instructions: Administer if tolerating PO. Do not crush, chew, cut, dissolve, open or otherwise manipulate tablet/capsule. (No admins scheduled or recorded for this medication) bisacodyL (DULCOLAX) suppository 10 mg [[id number]] Ordering Provider: Ady Neal MD Status: Verified Ordered On: 03/28/24242 Start: 03/28/24241 Ordered Dose (Remaining/Total): 10 mg (--/--) Route: rectal Frequency: Daily PRN Ordered Rate/Order Duration: -- / -- Admin Instructions: Administer if not tolerating PO. (No admins scheduled or recorded for this medication) albuterol HFA (PROVENTIL HFA,VENTOLIN HFA,PROAIR HFA) 90 mcg/actuation inhaler 2 puff [[id number]] Ordering Provider: Ady Neal MD Status: Verified Ordered On: 03/28/24300 Start: 03/28/24300 Ordered Dose (Remaining/Total): 2 puff (--/--) Route: inhalation Frequency: Every 6 hours PRN (respiratory assistant) Ordered Rate/Order Duration: -- / -- Timestamps Action Dose Route Other Information 03/29/24 0855 Given 2 puff inhalation Performed by: Zita Vázquez, BRANDEN Scanned Package: 05634-582-47 cefepime (MAXIPIME) 1,000 mg in sodium chloride 0.9% 100 mL IVPB [[id number]] Ordering Provider: Ady Neal MD Status: Dispensed Ordered On: 03/28/24311 Start: 03/28/24 0500 Ordered Dose (Remaining/Total): 1,000 mg (--/--) Route: intravenous Frequency: Every 6 hours scheduled Ordered Rate/Order Duration: 200 mL/hr / 30 Minutes Admin Instructions: Mini-Bag Plus bag Line Med Link Info Comment Peripheral IV 03/27/24 18 G Anterior;Left Forearm 03/28/24 1734 by Arleen Loving RN -- Timestamps Action Dose / Rate / Duration Route Other Information 03/31/24 1202 New Bag 1,000 mg 200 mL/hr 30 Minutes intravenous Performed by: Jenifer Alcantar RN Scanned Package: [address]-3, 7675-0130-13 diphenhydrAMINE (BENADRYL) tab/cap 50 mg [[id number]] Ordering Provider: Ady Neal MD Status: Verified Ordered On: 03/28/24319 Start: 03/28/24317 Ordered Dose (Remaining/Total): 50 mg (--/--) Route: oral Frequency: Nightly PRN Ordered Rate/Order Duration: -- / -- Admin Instructions: Formulary sub for Tylenol PM Note to pharmacy: For doses of 1/2 tab, ensure tablets are dispensed or have order changed to liquid formulation (No admins scheduled or recorded for this medication) acetaminophen (TYLENOL) tablet 975 mg [[id number]] Ordering Provider: Ady Neal MD Status: Verified Ordered On: 03/28/24319 Start: 03/28/24318 Ordered Dose (Remaining/Total): 975 mg (--/--) Route: oral Frequency: Nightly PRN Ordered Rate/Order Duration: -- / -- Admin Instructions: Formulary sub for Tylenol PM (No admins scheduled or recorded for this medication) benzonatate (TESSALON) capsule 100 mg [[id number]] Ordering Provider: Ady Neal MD Status: Dispensed Ordered On: 03/28/24611 Start: 03/28/24611 Ordered Dose (Remaining/Total): 100 mg (--/--) Route: oral Frequency: 3 times daily PRN Ordered Rate/Order Duration: -- / -- Admin Instructions: Do not crush, chew, cut, dissolve, open or otherwise manipulate tablet/capsule. Timestamps Action Dose Route Other Information 03/29/242027 Given 100 mg oral Performed by: Ashley Rios RN Scanned Package: 20075-181-25 dextrose (GLUTOSE) 40 % gel 15 g [[id number]] Ordering Provider: Jhonny Cordova MD Status: Verified Ordered On: 03/28/24925 Start: 03/28/24924 Ordered Dose (Remaining/Total): 15 g (--/--) Route: oral Frequency: Every 15 min PRN Ordered Rate/Order Duration: -- / -- Admin Instructions: If patient is alert and able to eat/drink, give 15 gm glucose or one juice (4 fluid ounces) NOT ORANGE JUICE. After treatment for hypoglycemia, recheck BG followed by treatment every 15 minutes until the BG is greater than 100 mg/dL. Then check BG 1 hour post-treatment. If BG isless than 100 mg/dL, repeat Q15 minute BG checks and treatment. Call MD for each episode of hypoglycemia. DRY END OPERATOR STATES GLUTOSE-15 CONTAINS GLUCOSE 40% W/W (50% W/V) (No admins scheduled or recorded for this medication) dextrose (D10W) 10% bolus 250 mL [[id number]] Ordering Provider: Jhonny Cordova MD Status: Verified Ordered On: 03/28/24925 Start: 03/28/24924 Ordered Dose (Remaining/Total): 250 mL (--/--) Route: intravenous Frequency: Every 15 min PRN Ordered Rate/Order Duration: 1,000 mL/hr / 15 Minutes Admin Instructions: After treatment for hypoglycemia, recheck BG followed by treatment every 15 minutes until the BG is greater than 100 mg/dL. Then check BG 1 hour post treatment. If BG is less [id number] mg/dL, repeat Q15 minute BG checks and treatment. Call MD for each episode of hypoglycemia. (No admins scheduled or recorded for this medication) glucagon injection 1 mg [[id number]] Ordering Provider: Jhonny Cordova MD Status: Verified Ordered On: 03/28/24925 Start: 03/28/24924 Ordered Dose (Remaining/Total): 1 mg (--/--) Route: intramuscular Frequency: Every 30 min PRN Ordered Rate/Order Duration: -- / -- Admin Instructions: After Glucagon is administered, position patient on side if possible to avoid aspiration. Obtain IV access. Follow glucagon treatment with glucose treatment or IV dextrose. After treatment for hypoglycemia, recheck BG followed by treatment every 15 minutes until the BG isgreater than 100 mg/dL. Then check BG 1 hour post treatment. If BG is less than 100 mg/dL, repeat Q15 minute BG checks and treatment. Call MD for each episode of hypoglycemia. Reconstitute 1 mg vial with 1 mL SWFI. Use immediately following reconstitution. (No admins scheduled or recorded for this medication) azithromycin (ZITHROMAX) 500 mg/250 mL in sodium chloride 0.9% (premix) 500 mg [[id number]] Ordering Provider: Jhonny Cordova MD Status: Completed (Past End Date/Time) Ordered On: 03/28/24931 Starts/Ends: 03/28/241199 - 03/29/24936 Ordered Dose (Remaining/Total): 500 mg (0/2) Route: intravenous Frequency: Every 24 hours scheduled Ordered Rate/Order Duration: 250 mL/hr / 60 Minutes Line Med Link Info Comment Peripheral IV 03/27/24 18 G Anterior;Left Forearm 03/29/24836 by Merry Armas RN -- Timestamps Action Dose / Rate / Duration Route Other Information 03/29/24836 New Bag 500 mg 250 mL/hr 60 Minutes intravenous Performed by: Merry Armas RN Scanned Package: 08188-798-38, 5314-7669-03 loperamide (IMODIUM) capsule 2 mg [[id number]] Ordering Provider: Jhonny Cordova MD Status: Dispensed Ordered On: 03/28/241403 Start: 03/28/241403 Ordered Dose (Remaining/Total): 2 mg (--/--) Route: oral Frequency: 4 times daily PRN Ordered Rate/Order Duration: -- / -- Admin Instructions: Maximum recommended dose 16 mg/day Timestamps Action Dose Route Other Information 03/29/242036 Given 2 mg oral Performed by: Ashley Rios RN Scanned Package: 40782-299-86 nicotine (NICODERM CQ) 21 mg patch 24 hour 1 patch [[id number]] Ordering Provider: Rukhsana Collins NP Status: Dispensed Ordered On: 03/28/241956 Start: 03/28/242099 Ordered Dose (Remaining/Total): 1 patch (--/--) Route: transdermal Frequency: Nightly Ordered Rate/Order Duration: -- / 24 Hours Admin Instructions: Apply a new patch every 24 hours to a clean, dry, hairless site on the upper arm or hip. Rotate site. Timestamps Action Dose / Duration Route / Site Other Information 03/30/242041 Medication Applied 1 patch 24 Hours transdermal Left Shoulder Performed by: Nadia Mancia RN Scanned Package: 77253-24746 insulin lispro (HumaLOG, ADMELOG) 100 unit/mL injection 3 Units [[id number]] Ordering Provider: Rukhsana Collins NP Status: Completed (Past End Date/Time) Ordered On: 03/29/2434 Starts/Ends: 03/29/24 0115 - 03/29/24 0039 Ordered Dose (Remaining/Total): 3 Units (0/1) Route: subcutaneous Frequency: Once Ordered Rate/Order Duration: -- / -- Timestamps Action Dose Route / Site Other Information 03/29/24 0039 Given 3 Units subcutaneous Left Lower Abdomen Performed by: Ashley Rios RN Scanned Package: 1811-6159-39 insulin lispro (HumaLOG, ADMELOG) 100 unit/mL injection 3 Units [[id number]] Ordering Provider: Rukhsana Collins NP Status: Completed (Past End Date/Time) Ordered On: 03/29/24 0304 Starts/Ends: 03/29/24 0345 - 03/29/24 0311 Ordered Dose (Remaining/Total): 3 Units (0/1) Route: subcutaneous Frequency: Once Ordered Rate/Order Duration: -- / -- Timestamps Action Dose Route / Site Other Information 03/29/24 0311 Given 3 Units subcutaneous Right Lower Abdomen Performed by: Ashley Rios RN Scanned Package: 2595-5209-76 hydrOXYzine (ATARAX) tablet 25 mg [[id number]] Ordering Provider: Rukhsana Collins NP Status: Completed (Past End Date/Time) Ordered On: 03/29/24344 Starts/Ends: 03/29/24 0430 - 03/29/24348 Ordered Dose (Remaining/Total): 25 mg (0/1) Route: oral Frequency: Once Ordered Rate/Order Duration: -- / -- Timestamps Action Dose Route Other Information 03/29/24348 Given 25 mg oral Performed by: Ashley Rios RN Scanned Package: 9891-3850-53 potassium chloride ER (KLOR-CON) extended release tablet 40 mEq [[id number]] Ordering Provider: Rukhsana Collins NP Status: Completed (Past End Date/Time) Ordered On: 03/29/24605 Starts/Ends: 03/29/24 0645 - 03/29/24 0612 Ordered Dose (Remaining/Total): 40 mEq (0/1) Route: oral Frequency: Once Ordered Rate/Order Duration: -- / -- Admin Instructions: Do not crush, chew, cut, dissolve, open or otherwise manipulate tablet/capsule. Timestamps Action Dose Route Other Information 03/29/24611 Given 40 mEq oral Performed by: Ashley Rios RN Scanned Package: 6371-2168-23, 8414-3433-19 potassium chloride ER (KLOR-CON) extended release tablet 20 mEq [[id number]] Ordering Provider: Rukhsana Collins NP Status: Completed (Past End Date/Time) Ordered On: 03/29/24605 Starts/Ends: 03/29/24 1015 - 03/29/24 0842 Ordered Dose (Remaining/Total): 20 mEq (0/1) Route: oral Frequency: Once Ordered Rate/Order Duration: -- / -- Admin Instructions: Administer 4 hours after first dose of supplemental potassium chloride. Do not crush, chew, cut, dissolve, open or otherwise manipulate tablet/capsule. Timestamps Action Dose Route Other Information 03/29/24 0842 Given 20 mEq oral Performed by: Merry Armas RN Scanned Package: 6182-5994-41 magnesium sulfate 2 g/50 mL in water (premix) 2 g [[id number]] Ordering Provider: Rukhsana Collins NP Status: Completed (Past End Date/Time) Ordered On: 03/29/24 0606 Starts/Ends: 03/29/24 0645 - 03/29/24 0712 Ordered Dose (Remaining/Total): 2 g (0/1) Route: intravenous Frequency: Once Ordered Rate/Order Duration: -- / 60 Minutes Timestamps Action Dose / Duration Route Other Information 03/29/24 0612 New Bag 2 g 60 Minutes intravenous Performed by: Ashley Rios RN Scanned Package: 61627-969-64 ipratropium-albuteroL (DUO-NEB) 0.5-2.5 mg/3 mL nebulizer solution 3 mL [[id number]] Ordering Provider: Jhonny Cordova MD Status: Dispensed Ordered On: 03/29/24 1014 Start: 03/29/24 1045 Ordered Dose (Remaining/Total): 3 mL (--/--) Route: nebulization Frequency: Every 6 hours while awake (respiratory assistant) Ordered Rate/Order Duration: -- / -- Timestamps Action Dose Route Other Information 03/31/24 0713 Given 3 mL nebulization Performed by: Elle Martin, BRANDEN Scanned Package: 5216-5235-91 morphine injection 2 mg [[id number]] Ordering Provider: Jhonny Cordova MD Status: Dispensed Ordered On: 03/29/24 1218 Start: 03/29/24 1217 Ordered Dose (Remaining/Total): 2 mg (--/--) Route: intravenous Frequency: Every 4 hours PRN Ordered Rate/Order Duration: -- / 4 Minutes Line Med Link Info Comment Peripheral IV 03/27/24 18 G Anterior;Left Forearm 03/29/24 1246 by Merry Armas RN -- Timestamps Action Dose / Duration Route Other Information 03/30/24 0340 Given 2 mg 4 Minutes intravenous Performed by: Ashley Rios RN Scanned Package: 0241-9572-54 insulin lispro (HumaLOG, ADMELOG) 100 unit/mL injection 0-5 Units [[id number]] Ordering Provider: Jhonny Cordova MD Status: Dispensed Ordered On: 03/29/241218 Start: 03/29/24 1300 Ordered Dose (Remaining/Total): 0-5 Units (--/--) Route: subcutaneous Frequency: 3 times daily with meals Ordered Rate/Order Duration: -- / -- Admin Instructions: Blood glucose mg/dL: 149 or less: No insulin 150-199: add 1 unit 200-249: add 2 units 250-299: add 3 units 300-349: add 4 units and notify physician for adjustment of insulin orders. 350-399: add 5 units and notify physician for adjustment of insulin orders. Over 400: Notify physician for adjustment of insulin orders. Do NOT hold for NPO Status Timestamps Action Dose Route / Site Other Information 03/31/24 0829 Given 1 Units subcutaneous Left Upper Arm Performed by: Jenifer Alcantar RN Scanned Package: 7491-2452-96 insulin lispro (HumaLOG, ADMELOG) 100 unit/mL injection 0-4 Units [[id number]] Ordering Provider: Jhonny Cordova MD Status: Dispensed Ordered On: 03/29/241218 Start: 03/29/24 2100 Ordered Dose (Remaining/Total): 0-4 Units (--/--) Route: subcutaneous Frequency: Nightly Ordered Rate/Order Duration: -- / -- Admin Instructions: Blood glucose mg/dL: 199 or less: No insulin 200-249: add 1 unit 250-299: add 2 units 300-349: add 3 units and notify physician for adjustment of insulin orders. 350- 399: add 4 units and notify physician for adjustment of insulin orders. Over 400: Notify physician for adjustment of insulin orders. Do NOT hold for NPO Status Timestamps Action Dose Route / Site Other Information 03/30/242041 Given 2 Units subcutaneous Left Lower Abdomen Performed by: Nadia Mancia RN Scanned Package: 4387-0389-34 insulin lispro (HumaLOG, ADMELOG) 100 unit/mL injection 2 Units [[id number]] Ordering Provider: Rukhsana Collins NP Status: Completed (Past End Date/Time) Ordered On: 03/29/242017 Starts/Ends: 03/29/242099 - 03/29/242027 Ordered Dose (Remaining/Total): 2 Units (0/1) Route: subcutaneous Frequency: Once Ordered Rate/Order Duration: -- / -- Timestamps Action Dose Route / Site Other Information 03/29/242027 Given 2 Units subcutaneous Left Lower Abdomen Performed by: Ashley Rios RN Scanned Package: 1913-3746-69 insulin lispro (HumaLOG, ADMELOG) 100 unit/mL injection 8 Units [[id number]] Ordering Provider: Ady Devries NP Status: Completed (Past End Date/Time) Ordered On: 03/29/242239 Starts/Ends: 03/29/242314 - 03/29/242245 Ordered Dose (Remaining/Total): 8 Units (0/1) Route: subcutaneous Frequency: Once Ordered Rate/Order Duration: -- / -- Timestamps Action Dose Route / Site Other Information 03/29/242245 Given 8 Units subcutaneous Right Lower Abdomen Performed by: Ashley Rios RN Scanned Package: 6606-1947-47 Carrier Fluids for Secondary Infusion - 0.9% Sodium Chloride [[id number]] Ordering Provider: Jhonny Cordova MD Status: Dispensed Ordered On: 03/29/242248 Start: 03/29/242248 Ordered Dose (Remaining/Total): 30 mL (--/--) Route: intravenous Frequency: As needed Ordered Rate/Order Duration: -- / -- Admin Instructions: 0-250ml/hr to flush line after IV infusions when no maintenance IV ordered. Infuse 30mL at the same rate as the secondary infusion. Run as primary IV, not intended for KVO Timestamps Action Dose Route Other Information 03/29/242253 Given 30 mL intravenous Performed by: Ashley Rios RN Scanned Package: 2802-9920-21 insulin lispro (HumaLOG, ADMELOG) 100 unit/mL injection 5 Units [[id number]] Ordering Provider: Jhonny Cordova MD Status: Dispensed Ordered On: 03/30/24 0906 Start: 03/30/24 1200 Ordered Dose (Remaining/Total): 5 Units (--/--) Route: subcutaneous Frequency: 3 times daily with meals Ordered Rate/Order Duration: -- / -- Admin Instructions: If BG greater than or equal to [...] eat, or if BG less than 70 mg/dL. Timestamps Action Dose Route / Site Other Information 03/31/24 1202 Given 5 Units subcutaneous Left Lower Abdomen Performed by: Jenifer Alcantar RN Scanned Package: 9172-5036-00 insulin glargine (LANTUS, SEMGLEE) 100 unit/mL injection 3 Units [[id number]] Ordering Provider: Jhonny Cordova MD Status: Completed (Past End Date/Time) Ordered On: 03/30/24 0908 Starts/Ends: 03/30/24 0945 - 03/30/24 0937 Ordered Dose (Remaining/Total): 3 Units (0/1) Route: subcutaneous Frequency: Once Ordered Rate/Order Duration: -- / -- Admin Instructions: Do not mix with other insulins Timestamps Action Dose Route / Site Other Information 03/30/24 0937 Given 3 Units subcutaneous Right Upper Abdomen Performed by: Ciara Rockwell RN Scanned Package: 7980-4126-48 insulin lispro (HumaLOG, ADMELOG) 100 unit/mL injection 2 Units [[id number]] Ordering Provider: Jhonny Cordova MD Status: Completed (Past End Date/Time) Ordered On: 03/30/24 1158 Starts/Ends: 03/30/24 1230 - 03/30/24 1201 Ordered Dose (Remaining/Total): 2 Units (0/1) Route: subcutaneous Frequency: Once Ordered Rate/Order Duration: -- / -- Timestamps Action Dose Route / Site Other Information 03/30/24 120 Given 2 Units subcutaneous Left Lower Abdomen Performed by: Ciara Rockwell RN Scanned Package: 8536-9438-21 mycophenolate mofetil (CELLCEPT) tablet 1,000 mg [[id number]] Ordering Provider: Jhonny Cordova MD Status: Dispensed Ordered On: 03/30/24 1306 Start: 03/30/24 1345 Ordered Dose (Remaining/Total): 1,000 mg (--/--) Route: oral Frequency: 2 times daily Ordered Rate/Order Duration: -- / -- Admin Instructions: Do not crush, chew, cut, dissolve, open or otherwise manipulate tablet/capsule. Timestamps Action Dose Route Other Information 03/31/24 0829 Given 1,000 mg oral Performed by: Jenifer Alcantar RN Scanned Package: 31565-875-12, 06867-601-04 tacrolimus immediate-release capsule 0.5 mg [[id number]] Ordering Provider: Jhonny Cordova MD Status: Dispensed Ordered On: 03/30/24 1306 Start: 03/30/24 1345 Ordered Dose (Remaining/Total): 0.5 mg (--/--) Route: oral Frequency: Every other day Ordered Rate/Order Duration: -- / -- Admin Instructions: Avoid grapefruit juice Timestamps Action Dose Route Other Information 03/30/24 1442 Given 0.5 mg oral Performed by: Ciara Rockwell RN Scanned Package: 22912-745-95 predniSONE (DELTASONE) tablet 10 mg [[id number]] Ordering Provider: Jhonny Cordova MD Status: Dispensed Ordered On: 03/30/24 1409 Start: 03/31/24 0900 Ordered Dose (Remaining/Total): 10 mg (--/--) Route: oral Frequency: Daily Ordered Rate/Order Duration: -- / -- Timestamps Action Dose Route Other Information 03/31/24 0828 Given 10 mg oral Performed by: Jenifer Alcantar RN Scanned Package: 84748-927-39 insulin lispro (HumaLOG, ADMELOG) 100 unit/mL injection 3 Units [[id number]] Ordering Provider: Rukhsana Collins NP Status: Completed (Past End Date/Time) Ordered On: 03/31/24 0259 Starts/Ends: 03/31/24 0330 - 03/31/24 0305 Ordered Dose (Remaining/Total): 3 Units (0/1) Route: subcutaneous Frequency: Once Ordered Rate/Order Duration: -- / -- Timestamps Action Dose Route / Site Other Information 03/31/24 0305 Given 3 Units subcutaneous Left Upper Arm Performed by: Nadia Mancia RN Scanned Package: 6358-8134-98 insulin glargine (LANTUS, SEMGLEE) 100 unit/mL injection 14 Units [[id number]] Ordering Provider: Yrn Suarez MD Status: Dispensed Ordered On: 03/31/24 0740 Start: 03/31/24 0900 Ordered Dose (Remaining/Total): 14 Units (--/--) Route: subcutaneous Frequency: Every morning Ordered Rate/Order Duration: -- / -- Admin Instructions: Do not hold if NPO. Do not mix with other insulins Timestamps Action Dose Route / Site Other Information 03/31/24 0829 Given 14 Units subcutaneous Right Upper Arm Performed by: Jenifer Alcantar RN Scanned Package: 20717-270-12 , OT Eval and Treat Last Documented OT ASSESSMENT FLOWSHEET LAST DOCUMENTED (most recent) OT Evaluation - 03/31/24 1038 Bathing Bath Bathed/showered with chlorhexidine (CHG) OT TREATMENT FLOWSHEET LAST DOCUMENTED (most recent) OT Treatment - 03/31/24 1038 Bathing Bath Bathed/showered with chlorhexidine (CHG) OT Notes Notes from 03/29/24 through 03/31/24 No notes of this type exist for this encounter. , PT Eval and Treat Last Documented OT ASSESSMENT FLOWSHEET LAST DOCUMENTED (most recent) PT Evaluation - 03/31/24 1038 Bathing Bath Bathed/showered with chlorhexidine (CHG) PT TREATMENT (most recent) PT Treatment - 03/30/24 2030 Pain Assessment Pain Assessment No/denies pain Pain Score 0 - No pain Cognition Orientation Oriented X4 (person, place, time, situation) PT Notes Notes from 03/29/24 through 03/31/24 No notes of this type exist for this encounter. * Plan of Care - Dora Linn RN - 03/31/2024 11:00 AM CDT [facility] will reaccept pt back for HH at time of discharge. Dora Linn RN 03/31/24 11:32 AM * Plan of Care - Nadia Mancia RN - 03/30/2024 10:23 PM CDT Problem: Discharge Planning Goal: Understanding discharge needs will improve Outcome: Progressing Problem: Fall Risk Goal: Ability to state ways to decrease the risk of falls will improve Outcome: Progressing Goal: Will remain free from falls Outcome: Progressing Goal: Will remain free from injury from falls Outcome: Progressing Problem: Respiratory Goal: Achieves optimal ventilation and oxygenation Outcome: Progressing Goal: Ability to maintain a clear airway will improve Outcome: Progressing Problem: Infection Goal: Absence of infection during hospitalization Outcome: Progressing Problem: Lack of Knowledge Goal: [...] Outcome: Progressing * Plan of Care - Ciara Rockwell RN - 03/30/2024 5:33 PM CDT Problem: Fall Risk Goal: Ability to state ways to decrease the risk of falls will improve Outcome: Progressing Flowsheets (Taken 03/30/2024 1733) Ability to state ways to decrease the risk of falls will improve: Teach fall prevention measures Teach information regarding appropriate environmental changes Problem: Respiratory Goal: Achieves optimal ventilation and oxygenation Outcome: Progressing Flowsheets (Taken 03/30/2024 1733) Achieves optimal ventilation and oxygenation: Assess for changes in respiratory status Position to facilitate oxygenation and minimize respiratory effort Goals: Summary: Patient denied any pain this shift. Ambulated in room independently. Oxygen saturations maintained on room air but patient wears oxygen for comfort. Patient reported nose bleed but was stopped with pressure and humidified oxygen. VSS. No other changes noted. * Initial Assessments - Dora Linn RN - 03/30/2024 10:00 AM CDT CM Initial Assessment Interview Note Information Obtained From: Patient (03/30/24 1000) Admission Source: Home Impression: Pneumonia, Chronic COPD recently treated for Pneumonia d/c home w/ [facility] Plan Includes: Pt to discharge home with support of room-mate, Lissy, who will transport pt at time of discharge. Pt already established with [facility], referral sent for re-acceptance, pending still. Primary Source of Transportation: Does the patient need discharge transport arranged?: No (Friend to transport) (03/30/24 1000) Health Insurance Coverage: [facility] Medicare Prescription Coverage: same Pharmacy: [id number] - [place] - [address] AT [address] [place] [address] Primary Care Provider: Gama Lindsay, DO Prior to Admission: Functional Status: Independent with ADLs Primary Caregiver: Self Support System: Spouse/Significant Other Home Care Services: Yes Type of Home Care Services: Nurse visit Home care service name and phone number: [facility] Home Health Outpatient Services: No Durable Medical Equipment: Oxygen, Rollator Oxygen Detail: 3L [place], [place] Home Patient Living Arrangements: Friends Type of Residence: Apartment Steps in home?: Yes, Outside of home Number of steps outside: 5 steps Medication management: Independent (03/30/24 1000) SDOH: Transportation: In the past 12 months, has lack of transportation kept you from medical appointments or from getting medications?: No In the past 12 months, has lack of transportation kept you from meetings, work, or from getting things needed for daily living?: No (03/30/24 1000) Financial Resource: How hard is it for you to pay for the very basics like food, housing, medical care, and heating?: Not hard at all (03/30/24 1000) Housing: In the last 12 months, was there a time when you were not able to pay the mortgage or rent on time?: No In the last 12 months, how many places have you lived?: 1 In the last 12 months, was there a time when you did not have a steady place to sleep or slept in ashelter (including now)?: No (03/30/24 1208) Utilities: No, (03/30/24 1000) Social Connections: In a typical week, how many times do you talk on the phone with family, friends, or neighbors?: Twice a week How often do you get together with friends or relatives?: Once a week How often do you attend jewish or taoism services?: Never Do you belong to any clubs or organizations such as jewish groups, unions, fraternal or athletic groups, or school groups?: Yes How often do you attend meetings of the clubs or organizations you belong to?: Never Are you , , , , never , or living with a partner?: (03/30/24 1207) Food Insecurity: Within the past 12 months, you worried that your food would run out before you got the money to buymore.: Never true Within the past 12 months, the food you bought just didn't last and you didn't have money to get more.: Never true (03/30/24 1208) Potential discharge needs include: Home Health: penitentiary (03/30/24 1000) Behavioral Health Services: Behavioral Health Services: No (03/30/24 1000) Anticipated Level of Care: Anticipated discharge level of care: Private residence Pt/Family agrees with Anticipated Level of Care: Yes (03/30/24 1000) Patient expects to be Discharged to: Private residence, (03/30/24 1000) Patient's Identified Problem/Goal Problem: Ensure acute medical [...] Collaboration with Patient, Provider, Direct Care Nurse, Wafer Line Worker, and other members of theHealth Care Team to assure needed interventions completed. 2. Return patient to optimal level of self-care post discharge. 3. Ethnographic Materials Conservator will follow for Discharge Planning - interventions as needed 4. Anticipated level of care at discharge 5. Planned Discharge Disposition Dora Linn RN * Plan of Care - Zita Vázquez RRT - 03/30/2024 7:21 AM CDT Problem: Respiratory Goal: Achieves optimal ventilation and oxygenation Outcome: Progressing Goal: Ability to maintain a clear airway will improve Outcome: Progressing * Plan of Care - Tasia Abreu RRT - 03/29/2024 8:34 PM CDT Problem: Respiratory Goal: Achieves optimal ventilation and oxygenation 03/29/20242033 by Tasia Abreu RRT Outcome: Progressing 03/29/20242020 by Tasia Abreu RRT Outcome: Progressing Goal: Ability to maintain a clear airway will improve 03/29/20242033 by Tasia Abreu RRT Outcome: Progressing 03/29/20242020 by Tasia Abreu RRT Outcome: Progressing * Plan of Care - Tasia Abreu RRT - 03/29/2024 8:21 PM CDT Problem: Respiratory Goal: Achieves optimal ventilation and oxygenation Outcome: Progressing Goal: Ability to maintain a clear airway will improve Outcome: Progressing * Plan of Care - Zita Vázquez RRT - 03/29/2024 8:59 AM CDT Problem: Respiratory Goal: Achieves optimal ventilation and oxygenation Outcome: Progressing Goal: Ability to maintain a clear airway will improve Outcome: Progressing * Plan of Care - Merry Armas RN - 03/29/2024 8:02 AM CDT Problem: Discharge Planning Goal: Understanding discharge needs will improve Outcome: Ongoing Flowsheets (Taken 03/29/2024826) Understanding of discharge needs will improve: Discuss information regarding discharge instructions Collaborate with case management interdisciplinary team Identify discharge barriers Identify discharge learning needs (meds, wound care, etc.) Arrange for needed discharge resources and transportation as appropriate Problem: Fall Risk Goal: Ability to state ways to decrease the risk of falls will improve Outcome: Ongoing Flowsheets (Taken 03/29/2024826) Ability to state ways to decrease the risk of falls will improve: Teach fall prevention measures Teach information regarding appropriate enviornmental changes Goal: Will remain free from falls Outcome: Ongoing Flowsheets (Taken 03/29/2024826) Will remain free from falls: Assess risk factors for falls Implement fall prevention measures Collaborate with other disciplines Goal: Will remain free from injury from falls Outcome: Ongoing Flowsheets (Taken 03/29/2024826) Will remain free from injury from falls: Provide safe environment for conduction of activities of daily living in hospital environment * Plan of Care - Arleen Loving RN - 03/28/2024 6:38 PM CDT Goals: CHG baths for PICC line, safety, ATB therapy, lomital for loose stool, stool collection Summary * Incidental Note - Jhonny Cordova MD - 03/28/2024 3:47 PM CDT I have seen and examined the patient today. Patient came for pneumonia. Patient was recently discharged home for bacteremia was on cefazolin. Antibiotic was changed to cefepime. Stop vancomycin as MRSA is negative. Will continue pneumonia. * Plan of Care - Angella Acosta RN - 03/28/2024 2:22 PM CDT Problem: Discharge Planning Goal: Understanding discharge needs will improve Outcome: Progressing Problem: Fall Risk Goal: Ability to state ways to decrease the risk of falls will improve Outcome: Progressing Goal: Will remain free from falls Outcome: Progressing Goal: Will remain free from injury from falls Outcome: Progressing Problem: Respiratory Goal: Achieves optimal ventilation and oxygenation Outcome: Progressing Goal: Ability to maintain a clear airway will improve Outcome: Progressing Problem: Infection Goal: Absence of infection during hospitalization Outcome: Progressing Goals: Summary: Plan of care discussed with patient. * ED Re-evaluation Note - Maik Brar MD - 03/27/2024 10:10 PM CDT ED Re-evaluation Care assumed from Dr. Ledesma Briefly, this is a 58 y.o. 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 Pt has a hx of leukemia (currently in remission). Pt has a current PICC line for antibiotics and does not know why. Please refer to previous provider's note for further details. BP 98/76 Pulse (!) 127 Temp 36.5 ??C (97.7 ??F) (Oral) Resp 22 SpO2 99% ED Course: ED Course as of 03/28/24 0050 Time: 03/27 2219 Comment: 02/26/24 Interpretation Summary The left ventricle is normal in size. There is normal left ventricular wall thickness. Left ventricular systolic function is normal. Ejection Fraction = 55-60%. Compared with echo 11/23/2019, no significant change. No mitral valve vegetation seen. Aortic, tricuspid, and pulmonic valves not well visualized. By: Maik Brar MD Time: 03/27 2245 Comment: CT CHEST PE pelvis IMPRESSION: No CT evidence for pulmonary embolus. Emphysema with bullous changes in the anterior right lower lobe. Dense multifocal airspace consolidation in the right upper lobe and to a lesser extent the posterior left upper lobe characteristic of bilateral pneumonia. Stable bilateral pulmonary nodules compared with 03/02/2024. Per Fleischner Society Guidelines, non-contrast chest CT at 3-6 months is recommended. If the nodules are stable at time of repeat CT, then future CT at 18-24 months (from today's scan) is considered optional for low-risk patients, but is recommended for high-risk patients. 1.3 cm pericardial effusion. Coronary artery calcification. Recommend clinical correlation for coronary artery disease. Surgical absence of the gallbladder. By: Maik Brar MD Time: 03/276 Comment: Paged the hospitalist x1 By: Maik Brar MD Time: 03/27 2251 Comment: Pt was hypotensive, tachycardic, leukocytosis. 3/4 SIRS criteria. Covered by vanc, cefepime on arrival By: Maik Brar MD Time: 03/27 2307 Comment: Dr. Neal states to call back after COVID/FLU/RSV has resulted. Did not take admission at this time. By: Maik Brar MD Time: 03/28 13 Value: Influenza A/B, RSV, and COVID-19 PCR Nasopharyngeal: COVID-19 RNA Negative Influenza A RNA Negative Influenza B RNA Negative RSV RNA Negative Comment: (Reviewed) By: Maik Brar MD Time: 03/28 13 Comment: [facility] By: Maik Brar MD Time: 03/28 38 Comment: [facility] [place] ist x 3 By: Maik Brar MD Diagnosis: 1. Shortness of breath 2. Pneumonia of right upper lobe due to infectious organism 3. COPD exacerbation (HCC) 4. Hypotension, unspecified hypotension type 5. History of leukemia 6. Leukocytosis, unspecified type Disposition: Admit Maik Brar MD 03/28/24 0050 documented in this encounter Plan of Treatment Pending Results Name Type Priority Associated Diagnoses Date /Time Magnesium Lab Routine 03/29/2024 4:5 9 AM CDT Magnesium Lab Routine 04/01/2024 5:0 2 AM CDT Scheduled Orders Name Type Priority Associated Diagnoses Orde r Schedule Pneumonia PCR with aerobic culture and Gram stain Sputum Microbiology Routine Once for 1 Occ urrences starting 03/28/2024 until 03/28/2024 Magnesium Lab Routine Once for 1 Occ urrences starting 03/29/2024 until 03/29/2024 Magnesium Lab Routine Once for 1 Occ urrences starting 04/01/2024 until 04/01/2024 documented as of this encounter Procedures Procedure Name Priority Date/Time Associated Diagnosis Comments POCT GLUCOSE DEVICE Routine 04/03/2024 1 1:18 AM CDT EGFR Routine 04/03/2024 7:45 AM CDT CBC WITH AUTO DIFFERENTIAL Routine 04/03/2024 7:45 AM CDT MANUAL DIFFERENTIAL Routine 04/03/2024 7 :45 AM CDT BASIC METABOLIC PANEL Routine 04/03/2024 7:45 AM CDT POCT GLUCOSE DEVICE Routine 04/03/2024 7 :32 AM CDT POCT GLUCOSE DEVICE Routine 04/03/2024 3 :16 AM CDT POCT GLUCOSE DEVICE Routine 04/02/2024 1 1:43 PM CDT POCT GLUCOSE DEVICE Routine 04/02/2024 8 :03 PM CDT POCT GLUCOSE DEVICE Routine 04/02/2024 4 :32 PM CDT POCT GLUCOSE DEVICE Routine 04/02/2024 1 1:08 AM CDT CBC WITH AUTO DIFFERENTIAL Routine 04/02/2024 8:29 AM CDT MANUAL DIFFERENTIAL Routine 04/02/2024 8 :29 AM CDT POCT GLUCOSE DEVICE Routine 04/02/2024 7 :17 AM CDT POCT GLUCOSE DEVICE Routine 04/01/2024 7 :20 PM CDT POCT GLUCOSE DEVICE Routine 04/01/2024 4 :31 PM CDT POCT GLUCOSE DEVICE Routine 04/01/2024 1 1:11 AM CDT POCT GLUCOSE DEVICE Routine 04/01/2024 7 :28 AM CDT EGFR Routine 04/01/2024 5:02 AM CDT DIFFERENTIAL AUTO Routine 04/01/2024 5:0 2 AM CDT CBC WITH AUTO DIFFERENTIAL Routine 04/01/2024 5:02 AM CDT MAGNESIUM Routine 04/01/2024 5:02 AM CDT BASIC METABOLIC PANEL Routine 04/01/2024 5:02 AM CDT POCT GLUCOSE DEVICE Routine 04/01/2024 3 :45 AM CDT POCT GLUCOSE DEVICE Routine 03/31/2024 7 :44 PM CDT POCT GLUCOSE DEVICE Routine 03/31/2024 6 :30 PM CDT POCT GLUCOSE DEVICE Routine 03/31/2024 4 :00 PM CDT XR CHEST 1 VIEW IP Routine 03/31/2024 3:23 PM CDT POCT GLUCOSE DEVICE Routine 03/31/2024 1 1:19 AM CDT POCT GLUCOSE DEVICE Routine 03/31/2024 7 :07 AM CDT EGFR Routine 03/31/2024 3:09 AM CDT MAGNESIUM Routine 03/31/2024 3:09 AM CDT BASIC METABOLIC PANEL Routine 03/31/2024 3:09 AM CDT POCT GLUCOSE DEVICE Routine 03/31/2024 2 :46 AM CDT POCT GLUCOSE DEVICE Routine 03/30/2024 1 0:24 PM CDT POCT GLUCOSE DEVICE Routine 03/30/2024 7 :50 PM CDT POCT GLUCOSE DEVICE Routine 03/30/2024 5 :05 PM CDT POCT GLUCOSE DEVICE Routine 03/30/2024 3 :59 PM CDT POCT GLUCOSE DEVICE Routine 03/30/2024 1 1:14 AM CDT POCT GLUCOSE DEVICE Routine 03/30/2024 7 :39 AM CDT DIFFERENTIAL AUTO Routine 03/30/2024 4:0 2 AM CDT CBC WITH AUTO DIFFERENTIAL Routine 03/30/2024 4:02 AM CDT POCT GLUCOSE DEVICE Routine 03/30/2024 3 :52 AM CDT POCT GLUCOSE DEVICE Routine 03/30/2024 1 2:55 AM CDT POCT GLUCOSE DEVICE Routine 03/29/2024 1 0:29 PM CDT POCT GLUCOSE DEVICE Routine 03/29/2024 7 :32 PM CDT POCT GLUCOSE DEVICE Routine 03/29/2024 4 :14 PM CDT POCT GLUCOSE DEVICE Routine 03/29/2024 1 1:48 AM CDT POCT GLUCOSE DEVICE Routine 03/29/2024 7 :48 AM CDT EGFR Routine 03/29/2024 4:59 AM CDT MAGNESIUM Routine 03/29/2024 4:59 AM CDT BASIC METABOLIC PANEL Routine 03/29/2024 4:59 AM CDT STREP PNEUMONIAE AG, URINE Routine 03/29/2024 3:13 AM CDT LEGIONELLA ANTIGEN, URINE Routine 03/29/2024 3:13 AM CDT POCT GLUCOSE DEVICE Routine 03/29/2024 2 :46 AM CDT POCT GLUCOSE DEVICE Routine 03/29/2024 1 2:20 AM CDT POCT GLUCOSE DEVICE Routine 03/28/2024 8 :21 PM CDT POCT GLUCOSE DEVICE Routine 03/28/2024 4 :12 PM CDT TRANSTHORACIC ECHO (TTE) LIMITED/FOLLOW UP W LTD DOPPLER/CF WO CONTRAST Routine 03/28/2024 3:22 PM CDT POCT GLUCOSE DEVICE Routine 03/28/2024 1 :53 PM CDT POCT GLUCOSE DEVICE Routine 03/28/2024 1 1:06 AM CDT POCT GLUCOSE DEVICE Routine 03/28/2024 7 :37 AM CDT EGFR Routine 03/28/2024 7:29 AM CDT CBC WITHOUT DIFFERENTIAL Routine 03/28/2024 7:29 AM CDT BASIC METABOLIC PANEL Routine 03/28/2024 7:29 AM CDT POCT GLUCOSE DEVICE Routine 03/28/2024 3 :03 AM CDT MRSA ONLY (STAPHYLOCOCCUS AUREUS) PCR Routine 03/28/2024 2:56 AM CDT POCT GLUCOSE DEVICE Routine 03/28/2024 1 :24 AM CDT URINALYSIS AND REFLEX TO MICROSCOPIC AND CULTURE STAT 03/27/2024 11:34 PM CDT INFLUENZA A/B, RSV, AND COVID-19 PCR STAT 03/27/2024 11:[address] CHEST PE W CONTRAST ED 03/27/2024 10:03 PM CDT BLOOD CULTURE STAT 03/27/2024 9:49 PM CDT BLOOD CULTURE STAT 03/27/2024 9:41 PM CDT MD CRITICAL CARE ILL/INJURED PATIENT INIT 30-74 MIN Routine 03/27/2024 9:29 PM CDT POCT GLUCOSE DEVICE Routine 03/27/2024 9 :25 PM CDT ECG 12-LEAD Routine 03/27/2024 9:22 PM CDT XR CHEST 1 VIEW ED 03/27/2024 9:13 PM CDT SEPSIS LACTATE WITH REFLEX Routine 03/27/2024 9:06 PM CDT EGFR STAT 03/27/2024 9:06 PM CDT DIFFERENTIAL AUTO STAT 03/27/2024 9:0 6 PM CDT CBC WITH AUTO DIFFERENTIAL STAT 03/27/2024 9:06 PM CDT MANUAL DIFFERENTIAL STAT 03/27/2024 9 :06 PM CDT COMPREHENSIVE METABOLIC PANEL STAT 03/27/2024 9:06 PM CDT ECG 12-LEAD Routine 03/27/2024 8:56 PM CDT documented in this encounter Results * POCT glucose (04/03/2024 11:18 AM CDT) Pathologist [facility] [place] Glucose, POC 166 70 - 199 mg/dL Glucose comment 1 Use This Result [facility] Glucose comment 2 RN/MD Notified ZULEMA Blood 04/03/2024 11:1 8 AM CDT 04/03/2024 11:18 AM CDT Eric Menon MD LAB POCT ORDERABLES - DEVICE Final Result ZULEMA [address] [facility] Department [place] [address] * eGFR (04/03/2024 7:45 AM CDT) [facility] eGFR >90 >=60 mL/min/1. 73 m2 [...] interpretive data was last reviewed 2021. Blood 04/03/2024 7:45 AM CDT 04/03/2024 8:02 AM CDT Eric Menon MD LAB BLOOD ORDERABLES Final Result [place] [id number] [facility] Department [place] [address] * (ABNORMAL) Manual Differential (04/03/2024 7:45 AM CDT) Differential Manual Cells Counted 100 [facility] Neutrophil abs 9.1(H) 1.5 - 6.5 K/cumm [facility] Imm gran abs 0.2(H) 0.0 - 0.1 K/cumm [facility] Lymphocyte abs 5.5(H) 0.8 - 3.3 K/cumm [facility] Monocyte abs 1.3(H) 0.2 - 0.8 K/cumm [facility] Eosinophil abs 0.2 0.0 - 0.5 K/cumm [facility] Neutrophil pct 56.0 % [facility] Comment: Interpretive Data Percent cell count reference ranges are not reported, since discordance with absolute values may lead to misinterpretation of CBC data. Current Interpretive Data was last revised on 2018. Lymphocyte pct 34.0 % [facility] Comment: Interpretive Data Percent cell count reference ranges are not reported, since discordance with absolute values may lead to misinterpretation of CBC data. Current Interpretive Data was last revised on 2018. Monocyte pct 8.0 % [facility] Comment: Interpretive Data Percent cell count reference ranges are not reported, since discordance with absolute values may lead to misinterpretation of CBC data. Current Interpretive Data was last revised on 2018. Eosinophil pct 1.0 % [facility] Comment: Interpretive Data Percent cell count reference ranges are not reported, since discordance with absolute values may lead to misinterpretation of CBC data. Current Interpretive Data was last revised on 2018. Metamyelocyte pct 1.0 % [facility] RBC morphology Consistent with RBC Indicies [facility] Poikilocytosis Moderate(A) [facility] Macrocytes 8-15/HPF(A) [facility] Target cells 3-7/HPF(A) [facility] Platelet estimate Automated Count Confirmed [facility] Blood 04/03/2024 7:45 AM CDT 04/03/2024 8:02 AM CDT Eric Menon MD LAB BLOOD ORDERABLES Final Result [place] [id number] [facility] Department [place] [address] * (ABNORMAL) Basic metabolic panel (04/03/2024 7:45 AM CDT) Sodium 138 135 - 145 mmol/L Potassium, pl 4.5 3.3 - 4.9 mmol/L [facility] Chloride 100 97 - 110 mmol/L [facility] CO2 30 22 - 32 mmol/L [facility] Anion gap 8 2 - 15 mmol/L [facility] BUN 30(H) 6 - 25 mg/dL [facility] Creatinine 0.76(L) 0.80 - 1.30 mg/dL [facility] Glucose 194 70 - 199 mg/dL [facility] Comment: Interpretive Data Fasting glucose [...] 2022. Calcium 8.7 8.5 - 10.3 mg/dL [facility] Blood 04/03/2024 7:45 AM CDT 04/03/2024 8:02 AM CDT Eric Menon MD LAB BLOOD ORDERABLES Final Result ZULEMA [address] [place] [address] * (ABNORMAL) CBC with auto differential (04/03/2024 7:45 AM CDT) WBC 16.3(H) 3.8 - 9.9 K/cumm Hgb 9.9(L) 13.0 - 17.5 g/dL [facility] Hct 29.5(L) 38.9 - 50.3 % [facility] Plt 509(H) 150 - 400 K/cumm [facility] MPV 10.3 9.1 - 12.3 fL [facility] RBC 2.78(L) 4.30 - 5.80 M/cumm [facility] MCV 106.1(H) 81.3 - 96.4 fL [facility] MCH 35.6(H) 27.1 - 33.3 pg [facility] MCHC 33.6 32.3 - 35.7 g/dL [facility] RDW CV 16.6(H) 11.1 - 14.9 % [facility] RDW SD 62.2(H) 35.7 - 48.1 fL [facility] NRBC abs 0.98(H) 0.00 - 0.01 K/cumm [facility] Blood 04/03/2024 7:45 AM CDT 04/03/2024 8:02 AM CDT Eric Menon MD LAB BLOOD ORDERABLES Edited Result - Final [address] [address] * POCT glucose (04/03/2024 7:32 AM CDT) Glucose, POC 191 70 - 199 mg/dL Glucose comment 1 Use This Result [facility] Glucose comment 2 RN/ Notified ZULEMA Blood 04/03/2024 7:32 AM CDT 04/03/2024 7:32 AM CDT Eric Menon MD LAB POCT ORDERABLES - DEVICE Final Result Performing Organization Address City/[facility]/ZIP Co de Phone Number ZULEMA [address] [address] * POCT glucose (04/03/2024 3:16 AM CDT) Glucose, POC 82 70 - 199 mg/dL Glucose comment 1 Use This Result [facility] Glucose comment 2 RN/ Notified ZULEMA Blood 04/03/2024 3:16 AM CDT 04/03/2024 3:16 AM CDT Eric Menon MD LAB POCT ORDERABLES - DEVICE Final Result Performing Organization Address City/[facility] Co de Phone Number [address] [address] * (ABNORMAL) POCT glucose (04/02/2024 11:43 PM CDT) Glucose, POC 220(H) 70 - 199 mg/dL Glucose comment 1 Use This Result [facility] Glucose comment 2 RN/ Notified ZULEMA Blood 04/02/2024 11:4 3 PM CDT 04/02/2024 11:43 PM CDT Eric Menon MD LAB POCT ORDERABLES - DEVICE Final Result Z[facility] [address] [address] * POCT glucose (04/02/2024 8:03 PM CDT) Glucose, POC 147 70 - 199 mg/dL Glucose comment 1 Use This Result [facility] Glucose comment 2 RN/MD Notified ZULEMA Blood 04/02/2024 8:03 PM CDT 04/02/2024 8:03 PM CDT Eric Menon MD LAB POCT ORDERABLES - DEVICE Final Result [facility] [address] [address] * (ABNORMAL) POCT glucose (04/02/2024 4:32 PM CDT) Glucose, POC 200(H) 70 - 199 mg/dL Glucose comment 1 Use This Result [facility] Blood 04/02/2024 4:32 PM CDT 04/02/2024 4:32 PM CDT Eric Menon MD LAB POCT ORDERABLES - DEVICE Final Result Performing Organization Address City/[facility]/ZIP Co de Phone Number ZULEMA [address] [address] * POCT glucose (04/02/2024 11:08 AM CDT) Glucose, POC 98 70 - 199 mg/dL Glucose comment 1 Use This Result [facility] Blood 04/02/2024 11:0 8 AM CDT 04/02/2024 11:08 AM CDT Eric Menon MD LAB POCT ORDERABLES - DEVICE Final Result [facility] [place] [address] * (ABNORMAL) Manual Differential (04/02/2024 8:29 AM CDT) Differential Manual Cells Counted 100 [facility] Neutrophil abs 10.9(H) 1.5 - 6.5 K/cumm [facility] Lymphocyte abs 3.8(H) 0.8 - 3.3 K/cumm [facility] Monocyte abs 1.0(H) 0.2 - 0.8 K/cumm [facility] Eosinophil abs 0.3 0.0 - 0.5 K/cumm [facility] Neutrophil pct 68.0 % [facility] Comment: Interpretive Data Percent cell count reference ranges are not reported, since discordance with absolute values may lead to misinterpretation of CBC data. Current Interpretive Data was last revised on 2018. Lymphocyte pct 24.0 % [facility] Comment: Interpretive Data Percent cell count reference ranges are not reported, since discordance with absolute values may lead to misinterpretation of CBC data. Current Interpretive Data was last revised on 2018. Monocyte pct 6.0 % [facility] Comment: Interpretive Data Percent cell count reference ranges are not reported, since discordance with absolute values may lead to misinterpretation of CBC data. Current Interpretive Data was last revised on 2018. Eosinophil pct 2.0 % [facility] Comment: Interpretive Data Percent cell count reference ranges are not reported, since discordance with absolute values may lead to misinterpretation of CBC data. Current Interpretive Data was last revised on 2018. RBC morphology Present(A) [facility] Poikilocytosis Moderate(A) [facility] Macrocytes 8-15/HPF(A) [facility] Target cells 8-15/HPF(A) [facility] Platelet estimate Automated Count Confirmed [facility] Blood 04/02/2024 8:29 AM CDT 04/02/2024 8:43 AM CDT us Eric Menon MD LAB BLOOD ORDERABLES Final Result [facility] [address] [facility] Department [place] [address] * (ABNORMAL) CBC with auto differential (04/02/2024 8:29 AM CDT) WBC 16.0(H) 3.8 - 9.9 K/cumm Hgb 10.4(L) 13.0 - 17.5 g/dL [facility] Hct 31.3(L) 38.9 - 50.3 % [facility] Plt 510(H) 150 - 400 K/cumm [facility] MPV 10.1 9.1 - 12.3 fL [facility] RBC 2.99(L) 4.30 - 5.80 M/cumm [facility] MCV 104.7(H) 81.3 - 96.4 fL [facility] MCH 34.8(H) 27.1 - 33.3 pg [facility] MCHC 33.2 32.3 - 35.7 g/dL [facility] RDW CV 16.4(H) 11.1 - 14.9 % [facility] RDW SD 61.8(H) 35.7 - 48.1 fL [facility] NRBC abs 0.91(H) 0.00 - 0.01 K/cumm [facility] Blood 04/02/2024 8:29 AM CDT 04/02/2024 8:43 AM CDT Eric Menon MD LAB BLOOD ORDERABLES Final Result Performing Organization Address [facility] Co de Phone Number [address] [place] [address] * POCT glucose (04/02/2024 7:17 AM CDT) Pathologist [facility] [place] Glucose, POC 136 70 - 199 mg/dL Glucose comment 1 Use This Result [facility] Blood 04/02/2024 7:17 AM CDT 04/02/2024 7:17 AM CDT Eric Menon MD LAB POCT ORDERABLES - DEVICE Final Result Performing Organization Address City/[facility] Co de Phone Number [address] [place] [address] * POCT glucose (04/01/2024 7:20 PM CDT) Glucose, POC 121 70 - 199 mg/dL Glucose comment 1 Use This Result [facility] Glucose comment 2 RN/MD Notified ZULEMA Blood 04/01/2024 7:20 PM CDT 04/01/2024 7:20 PM CDT Yrn Suarez MD LAB POCT ORDERABLES - DEVIC E Final Result [facility] [place] [address] * POCT glucose (04/01/2024 4:31 PM CDT) Glucose, POC 165 70 - 199 mg/dL Glucose comment 1 Use This Result [facility] Glucose comment 2 RN/ Notified ZULEMA Blood 04/01/2024 4:31 PM CDT 04/01/2024 4:31 PM CDT Yrn Suarez MD LAB POCT ORDERABLES - DEVIC E Final Result Performing Organization Address [facility] Co de Phone Number [address] [place] [address] * (ABNORMAL) POCT glucose (04/01/2024 11:11 AM CDT) Glucose, POC 201(H) 70 - 199 mg/dL Glucose comment 1 Use This Result [facility] Glucose comment 2 RN/MD Notified ZULEMA Blood 04/01/2024 11:1 1 AM CDT 04/01/2024 11:11 AM CDT Yrn Suarez MD LAB POCT ORDERABLES - DEVIC E Final Result [address] [place] [address] * (ABNORMAL) POCT glucose (04/01/2024 7:28 AM CDT) Pathologist [facility] [place] Glucose, POC 202(H) 70 - 199 mg/dL Glucose comment 1 Use This Result [facility] Glucose comment 2 RN/MD Notified ZULEMA Blood 04/01/2024 7:28 AM CDT 04/01/2024 7:28 AM CDT us Yrn Suarez MD LAB POCT ORDERABLES - DEVIC E Final Result [facility] [address] [facility] Department [place] [address] * eGFR (04/01/2024 5:02 AM CDT) Pathologist [facility] [place] eGFR >90 >=60 mL/min/1. 73 m2 Comment: [...] interpretive data was last reviewed 2021. Blood 04/01/2024 5:02 AM CDT 04/01/2024 5:10 AM CDT Yrn Suarez MD LAB BLOOD ORDERABLES Final Result Performing Organization Address City/[facility]/ZIP Co de Phone Number ZULEMA [address] [address] * Magnesium (04/01/2024 5:02 AM CDT) Pathologist [facility] [place] Magnesium 1.8 1.4 - 2.5 mg/dL Blood 04/01/2024 5:02 AM CDT 04/01/2024 5:10 AM CDT Yrn Suarez MD LAB BLOOD ORDERABLES Final Result Performing Organization Address City/[facility] Co de Phone Number [address] [address] * (ABNORMAL) Differential, auto (04/01/2024 5:02 AM CDT) Pathologist [facility] [place] Neutrophil abs 9.9(H) 1.5 - 6.5 K/cumm Imm gran abs 0.2(H) 0.0 - 0.1 K/cumm [facility] Lymphocyte abs 4.9(H) 0.8 - 3.3 K/cumm [facility] Monocyte abs 1.5(H) 0.2 - 0.8 K/cumm [facility] Eosinophil abs 0.0 0.0 - 0.5 K/cumm [facility] Basophil abs 0.0 0.0 - 0.1 K/cumm [facility] Neutrophil pct 60.3 % [facility] Comment: Interpretive Data Percent cell count reference ranges are not reported, since discordance with absolute values may lead to misinterpretation of CBC data. Current Interpretive Data was last revised on 2018. Imm gran pct 1.1 % [facility] Comment: Interpretive Data Percent cell count reference ranges are not reported, since discordance with absolute values may lead to misinterpretation of CBC data. Current Interpretive Data was last revised on 2018. Lymphocyte pct 29.6 % [facility] Comment: Interpretive Data Percent cell count reference ranges are not reported, since discordance with absolute values may lead to misinterpretation of CBC data. Current Interpretive Data was last revised on 2018. Monocyte pct 8.8 % [facility] Comment: Interpretive Data Percent cell count reference ranges are not reported, since discordance with absolute values may lead to misinterpretation of CBC data. Current Interpretive Data was last revised on 2018. Eosinophil pct 0.1 % [facility] Comment: Interpretive Data Percent cell count reference ranges are not reported, since discordance with absolute values may lead to misinterpretation of CBC data. Current Interpretive Data was last revised on 2018. Basophil pct 0.1 % [facility] Comment: Interpretive Data Percent cell count reference ranges are not reported, since discordance with absolute values may lead to misinterpretation of CBC data. Current Interpretive Data was last revised on 2018. Blood 04/01/2024 5:02 AM CDT 04/01/2024 5:10 AM CDT us Yrn Suarez MD LAB BLOOD ORDERABLES Final Result [facility] [address] [facility] [place] [address] * (ABNORMAL) CBC with auto differential (04/01/2024 5:02 AM CDT) WBC 16.4(H) 3.8 - 9.9 K/cumm Hgb 9.6(L) 13.0 - 17.5 g/dL [facility] Hct 28.0(L) 38.9 - 50.3 % [facility] Plt 494(H) 150 - 400 K/cumm [facility] MPV 10.0 9.1 - 12.3 fL [facility] RBC 2.75(L) 4.30 - 5.80 M/cumm [facility] MCV 101.8(H) 81.3 - 96.4 fL [facility] MCH 34.9(H) 27.1 - 33.3 pg [facility] MCHC 34.3 32.3 - 35.7 g/dL [facility] RDW CV 15.9(H) 11.1 - 14.9 % [facility] RDW SD 59.4(H) 35.7 - 48.1 fL [facility] NRBC abs 0.68(H) 0.00 - 0.01 K/cumm [facility] Blood 04/01/2024 5:02 AM CDT 04/01/2024 5:10 AM CDT Yrn Suarez MD LAB BLOOD ORDERABLES Final Result [facility] [address] [facility] [place] [address] * (ABNORMAL) Basic metabolic panel (04/01/2024 5:02 AM CDT) Sodium 137 135 - 145 mmol/L Potassium, pl 4.6 3.3 - 4.9 mmol/L [facility] Chloride 100 97 - 110 mmol/L [facility] CO2 30 22 - 32 mmol/L [facility] Anion gap 7 2 - 15 mmol/L [facility] BUN 28(H) 6 - 25 mg/dL [facility] Creatinine 0.74(L) 0.80 - 1.30 mg/dL [facility] Glucose 183 70 - 199 mg/dL [facility] Comment: Delta - Results Reviewed Interpretive Data Fasting glucose >/= 126 mg/dl [...] 2022. Calcium 8.5 8.5 - 10.3 mg/dL [facility] Blood 04/01/2024 5:02 AM CDT 04/01/2024 5:10 AM CDT Yrn Suarez MD LAB BLOOD ORDERABLES Final Result Performing Organization Address City/[facility]/ZIP Co de Phone Number [address] [place] [address] * POCT glucose (04/01/2024 3:45 AM CDT) Glucose, POC 177 70 - 199 mg/dL Glucose comment 1 Use This Result [facility] Glucose comment 2 RN/MD Notified [facility] Blood 04/01/2024 3:45 AM CDT 04/01/2024 3:45 AM CDT Result [facility] Yrn Suarez MD LAB POCT ORDERABLES - DEVIC E Final Result Performing Organization Address [facility] Co de Phone Number [address] [place] [address] * (ABNORMAL) POCT glucose (03/31/2024 7:44 PM CDT) Glucose, POC 308(H) 70 - 199 mg/dL Glucose comment 1 Use This Result [facility] Glucose comment 2 RN/MD Notified ZULEMA Blood 03/31/2024 7:44 PM CDT 03/31/2024 7:44 PM CDT Result [facility] Yrn Suarez MD LAB POCT ORDERABLES - DEVIC E Final Result Performing Organization Address City/[facility] Co de Phone Number [address] [place] [address] * (ABNORMAL) POCT glucose (03/31/2024 6:30 PM CDT) Glucose, POC 285(H) 70 - 199 mg/dL Glucose comment 1 Use This Result [facility] Glucose comment 2 Critical Value [facility] Blood 03/31/2024 6:30 PM CDT 03/31/2024 6:30 PM CDT Yrn Suarez MD LAB POCT ORDERABLES - DEVIC E Final Result Performing Organization Address City/[facility]/ZIP Co de Phone Number [facility] [place] [address] * (ABNORMAL) POCT glucose (03/31/2024 4:00 PM CDT) Glucose, POC 414(H) 70 - 199 mg/dL Glucose comment 1 Use This Result [facility] Glucose comment 2 Critical Value [facility] Blood 03/31/2024 4:00 PM CDT 03/31/2024 4:00 PM CDT Yrn Suarez MD LAB POCT ORDERABLES - DEVIC E Final Result Performing Organization Address [facility] Co de Phone Number [facility] [place] [address] * XR Chest 1 View (03/31/2024 3:23 PM CDT) Anatomical Region Laterality Modality Body, Chest N/A Computed Radiogr aphy 03/31/2024 6:24 PM CDT Narrative 03/31/2024 6:26 PM CDT EXAM DESCRIPTION: XR CHEST 1 VIEW REASON FOR STUDY: pneumonia ?? Per Order: Pneumonia. ?? TECHNIQUE: 2 ??radiographic view(s) of the chest. COMPARISON: 03/27/2024 FINDINGS: LUNGS: ??Emphysematous changes are suspected of the hyperexpansion of the lungs. ??Coarse abnormal density at the right apex is similar to findings on the prior CT and plain film study. ??Minor density is again seen in the left apex. ??No pneumothorax is identified. ?? HEART/MEDIASTINUM: ??Cardiac silhouette normal in size. Mediastinal and hilar contours appear normal. LINES/TUBES: ??Right right-sided PICC line is again noted. BONES: ??No acute osseous abnormality. IMPRESSION: Findings are similar to recent prior studies with hyperexpanded lungs and abnormal density in the apices particularly on the right THIS IS AN ELECTRONICALLY VERIFIED FINAL REPORT 03/31/2024 6:26 PM - Electronically signed by ??Dallas Abbott M.D. KH D: ??03/31/2024 6:25 PM T: Report ID: [id number] Reading Location: ??[id number] Procedure Note Dallas Abbott MD - 03/31/2024 EXAM DESCRIPTION: XR CHEST 1 VIEW REASON FOR STUDY: pneumonia Per Order: Pneumonia. TECHNIQUE: 2 radiographic view(s) of the chest. COMPARISON: 03/27/2024 FINDINGS: LUNGS: Emphysematous changes are suspected of thehyperexpansion of the lungs. Coarse abnormal density at the right apex is similar tofindings on the prior CT and plain film study. Minor density is again seen in theleft apex. No pneumothorax is identified. HEART/MEDIASTINUM: Cardiac silhouette normal in size. Mediastinal andhilar contours appear normal. LINES/TUBES: Right right-sided PICC line is again noted. BONES: No acute osseous abnormality. IMPRESSION: Findings are similar to recent prior studies withhyperexpanded lungs and abnormal density in the apices particularly on the right THIS IS AN ELECTRONICALLY VERIFIED FINAL REPORT 03/31/2024 6:26 PM - Electronically signed by Dallas FENG T: Report ID: [id number] Reading Location: [id number] us Yrn Suarez MD IMG XR PROCEDURES Final Res ult * POCT glucose (03/31/2024 11:19 AM CDT) Glucose, POC 123 70 - 199 mg/dL Glucose comment 1 Use This Result [facility] Blood 03/31/2024 11:1 9 AM CDT 03/31/2024 11:19 AM CDT us Yrn Suarez MD LAB POCT ORDERABLES - DEVIC E Final Result [facility] [address] [facility] [place] [address] * POCT glucose (03/31/2024 7:07 AM CDT) Glucose, POC 164 70 - 199 mg/dL Glucose comment 1 Use This Result [facility] Blood 03/31/2024 7:07 AM CDT 03/31/2024 7:07 AM CDT Yrn Suarez MD LAB POCT ORDERABLES - DEVIC E Final Result [facility] [address] [facility] [place] [address] * eGFR (03/31/2024 3:09 AM CDT) eGFR >90 >=60 mL/min/1. 73 [...] interpretive data was last reviewed 2021. Blood 03/31/2024 3:09 AM CDT 03/31/2024 3:50 AM CDT us Jhonny Cordova MD LAB BLOOD ORDERABLES Final Result Performing Organization Address City/[facility]/ZIP Co de Phone Number [address] [address] * Magnesium (03/31/2024 3:09 AM CDT) Pathologist [facility] Magnesium 1.9 1.4 - 2.5 mg/dL Blood 03/31/2024 3:09 AM CDT 03/31/2024 3:50 AM CDT Jhonny Cordova MD LAB BLOOD ORDERABLES Final Result Performing Organization Address [facility] de Phone Number [address] [address] * (ABNORMAL) Basic metabolic panel (03/31/2024 3:09 AM CDT) [facility] Sodium 137 135 - 145 mmol/L Potassium, pl 4.4 3.3 - 4.9 mmol/L [facility] Comment:Delta - Results Revi ewed Chloride 98 97 - 110 mmol/L [facility] CO2 29 22 - 32 mmol/L [facility] Anion gap 10 2 - 15 mmol/L [facility] BUN 24 6 - 25 mg/dL [facility] Creatinine 0.78(L) 0.80 - 1.30 mg/dL [facility] Glucose 337(H) 70 - 199 mg/dL [facility] Comment: Interpretive Data Fasting glucose [...] 2022. Calcium 8.9 8.5 - 10.3 mg/dL [facility] Blood 03/31/2024 3:09 AM CDT 03/31/2024 3:50 AM CDT Jhonny Cordova MD LAB BLOOD ORDERABLES Final Result Performing Organization Address City/[facility] Co de Phone Number [address] [place] [address] * (ABNORMAL) POCT glucose (03/31/2024 2:46 AM CDT) Glucose, POC 337(H) 70 - 199 mg/dL Blood 03/31/2024 2:46 AM CDT 03/31/2024 2:46 AM CDT Jhonny Cordova MD LAB POCT ORDERABLES - JULIO CE Final Result Performing Organization Address City/[facility] Co de Phone Number [address] [place] [address] * (ABNORMAL) POCT glucose (03/30/2024 10:24 PM CDT) Glucose, POC 294(H) 70 - 199 mg/dL Blood 03/30/2024 10:2 4 PM CDT 03/30/2024 10:24 PM CDT Jhonny Cordova MD LAB POCT ORDERABLES - JULIO CE Final Result Performing Organization Address City/[facility] Co de Phone Number [address] [place] [address] * (ABNORMAL) POCT glucose (03/30/2024 7:50 PM CDT) Glucose, POC 298(H) 70 - 199 mg/dL Blood 03/30/2024 7:50 PM CDT 03/30/2024 7:50 PM CDT Jhonny Cordova MD LAB POCT ORDERABLES - JULIO CE Final Result Performing Organization Address [facility] de Phone Number ZULEMA [address] [place] [address] * (ABNORMAL) POCT glucose (03/30/2024 5:05 PM CDT) Glucose, POC 302(H) 70 - 199 mg/dL Blood 03/30/2024 5:05 PM CDT 03/30/2024 5:05 PM CDT Jhonny Cordova MD LAB POCT ORDERABLES - JULIO CE Final Result Performing Organization Address [facility] de Phone Number ZULEMA [address] [place] [address] * (ABNORMAL) POCT glucose (03/30/2024 3:59 PM CDT) Glucose, POC 260(H) 70 - 199 mg/dL Glucose comment 1 Use This Result [facility] Blood 03/30/2024 3:59 PM CDT 03/30/2024 3:59 PM CDT Jhonny Cordova MD LAB POCT ORDERABLES - JULIO CE Final Result Performing Organization Address [facility] de Phone Number LESLIE[address] [place] [address] * (ABNORMAL) POCT glucose (03/30/2024 11:14 AM CDT) Glucose, POC 383(H) 70 - 199 mg/dL Glucose comment 1 Use This Result [facility] Blood 03/30/2024 11:1 4 AM CDT 03/30/2024 11:14 AM CDT Jhonny Cordova MD LAB POCT ORDERABLES - JULIO CE Final Result Performing Organization Address [facility] de Phone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 less than 70 mg/dL AND no IV access AND unable to take PO glucose/juice., Starting on 03/28/24 at 0925, After Glucagon is administered, position patient on [...] reconstitution. guaiFENesin (ROBITUSSIN) 20 mg/mL oral liquid 100 mg 100 mg, oral, 3 times daily PRN, cough, congestion, Starting on 03/28/24 at 0241 Given 03/30/2024 3:52 AM C DT 100 mg guaiFENesin ER (MUCINEX) extended release tablet 600 mg 600 mg, oral, 2 times daily, First dose on 03/28/24 at 0900, Do not crush, chew, cut, dissolve, open or otherwise manipulate tablet/capsule. Given 04/03/2024 8:18 AM CDT 600 mg Given 04/02/2024 8:39 PM CDT 600 mg Given 04/02/2024 8:47 AM CDT 600 mg hydrOXYzine (ATARAX) tablet 25 mg 25 mg, oral, Once, On Sat03/29/24 at 0430, For 1 dose Given 03/29/2024 3:49 AM CDT 25 mg insulin glargine (LANTUS, SEMGLEE) 100 unit/mL injection 10 Units 10 Units, subcutaneous, Every morning, First dose (after last modification) on Sat04/01/24 at 0900, Do not hold if NPO. Do not mix with other insulins, Indications: Diabetes MellitusIndications:Diabetes Mellitus Given 04/03/2024 8:21 AM CDT 10 Units Left Upper Abdomen Given 04/02/2024 8:49 AM CDT 10 Units Le ft Lower Abdomen Given 04/01/2024 8:34 AM CDT 10 Units Le ft Lower Abdomen insulin glargine (LANTUS, SEMGLEE) 100 unit/mL injection 12 Units 12 Units, subcutaneous, Every morning, First dose (after last modification) on Sat03/28/24 at 1000, Do not hold if NPO. Do not mix with other insulins, Indications: Diabetes MellitusIndications:Diabetes Mellitus Given 03/29/2024 8:01 AM CDT 12 Units Left Upper Arm Given 03/28/2024 9:39 AM CDT 12 Units Le ft Lower Abdomen insulin glargine (LANTUS, SEMGLEE) 100 unit/mL injection 14 Units 14 Units, subcutaneous, Every morning, First dose (after last modification) on Sat03/31/24 at 0900, Do not hold if NPO. Do not mix with other insulins, Indications: Diabetes MellitusIndications:Diabetes Mellitus Given 03/31/2024 8:29 AM CDT 14 Units Right Upper Arm insulin glargine (LANTUS, SEMGLEE) 100 unit/mL injection 3 Units 3 Units, subcutaneous, Once, On Sat03/30/24 at 0945, For 1 dose, Do not mix with other insulins Given 03/30/2024 9:37 AM CDT 3 Units Right Upper Abdomen insulin glargine (LANTUS, SEMGLEE) 100 unit/mL injection 6 Units 6 Units, subcutaneous, Once, On Sat03/31/24 at 1700, For 1 dose, Do not mix with other insulins Given 03/31/2024 4:39 PM CDT 6 Units Left Lower Abdomen insulin glargine (LANTUS, SEMGLEE) 100 unit/mL injection 9 Units 9 Units (rounded from 9.15 Units = 0.15 Units/kg ? 61 kg), subcutaneous, Every morning, First dose on 03/29/24 at 1300, Do not hold if NPO. Do not mix with other insulins, Indications: Diabetes MellitusIndications:Diabetes Mellitus Given 03/30/2024 8:37 AM CDT 9 Units Right Lower Abdomen insulin lispro (HumaLOG, ADMELOG) 100 unit/mL injection 0-4 Units 0-4 Units, subcutaneous, Nightly, First dose on 03/29/24 at 2100, Blood glucose mg/dL: 199 or less: No insulin 200-249: add 1 unit 250-299: add 2 units 300-349: add 3 units and notify physician for adjustment of insulin orders. 350-399: add 4 units and notify physician for adjustment of insulin orders. Over 400: Notify physician for adjustment of insulin orders. Do NOT hold for NPO Status, Indications: Diabetes MellitusIndications:Diabetes Mellitus Given 03/31/2024 8:06 PM CDT 3 Units Left Lower Abdomen Given 03/30/2024 8:42 PM CDT 2 Units Le ft Lower Abdomen Given 03/29/2024 8:29 PM CDT 4 Units Le ft Lower Abdomen insulin lispro (HumaLOG, ADMELOG) 100 unit/mL injection 0-5 Units 0-5 Units, subcutaneous, 3 times daily with meals, First dose on 03/28/24 at 1200, Blood glucose mg/dL: 149 or less: No [...] NPO Status, Indications: Diabetes MellitusIndications:Diabetes Mellitus Given 03/29/2024 12:05 PM CDT 1 Units Left Upper Arm Given 03/29/2024 8:02 AM CDT 3 Units Le ft Upper Arm Given 03/28/2024 5:33 PM CDT 3 Units Le ft Upper Abdomen insulin lispro (HumaLOG, ADMELOG) 100 unit/mL injection 0-5 Units 0-5 Units, subcutaneous, 3 times daily with meals, First dose on Sat03/29/24 at 1300, Blood glucose mg/dL: 149 or less: No [...] NPO Status, Indications: Diabetes MellitusIndications:Diabetes Mellitus Given 04/03/2024 11:57 AM CDT 1 Units Left Upper Abdomen Given 04/03/2024 8:19 AM CDT 1 Units Le ft Upper Abdomen Given 04/02/2024 5:04 PM CDT 2 Units Le ft Lower Abdomen insulin lispro (HumaLOG, ADMELOG) 100 unit/mL injection 10 Units 10 Units, subcutaneous, 3 times daily with meals, First dose (after last modification) on Sat03/31/24 at 1800, If BG greater than or [...] 70 mg/dL., Indications: Diabetes MellitusIndications:Diabetes Mellitus Given 04/03/2024 11:57 AM CDT 10 Units Left Upper Abdomen Given 04/03/2024 8:20 AM CDT 10 Units Le ft Upper Abdomen Given 04/02/2024 5:05 PM CDT 10 Units Le ft Upper Abdomen insulin lispro (HumaLOG, ADMELOG) 100 unit/mL injection 2 Units 2 Units, subcutaneous, Once, On Sat03/29/24 at 2100, For 1 dose Given 03/29/2024 8:28 PM CDT 2 Units Left Lower Abdomen insulin lispro (HumaLOG, ADMELOG) 100 unit/mL injection 2 Units 2 Units, subcutaneous, Once, On Sat03/30/24 at 1230, For 1 dose Given 03/30/2024 12:01 PM CDT 2 Units Left Lower Abdomen insulin lispro (HumaLOG, ADMELOG) 100 unit/mL injection 3 Units 3 Units, subcutaneous, Once, On Sat03/29/24 at 0115, For 1 dose Given 03/29/2024 12:39 AM CDT 3 Units Left Lower Abdomen insulin lispro (HumaLOG, ADMELOG) 100 unit/mL injection 3 Units 3 Units, subcutaneous, Once, On Sat03/29/24 at 0345, For 1 dose Given 03/29/2024 3:11 AM CDT 3 Units Right Lower Abdomen insulin lispro (HumaLOG, ADMELOG) 100 unit/mL injection 3 Units 3 Units (rounded from 3.05 Units = 0.05 Units/kg ? 61 kg), subcutaneous, 3 times daily with meals, First dose on Sat03/29/24 at 1300, If BG greater than or equal to [...] 70 mg/dL., Indications: Diabetes MellitusIndications:Diabetes Mellitus Given 03/30/2024 8:38 AM CDT 3 Units Right Lower Abdomen Given 03/29/2024 4:30 PM CDT 3 Units Le ft Upper Arm insulin lispro (HumaLOG, ADMELOG) 100 unit/mL injection 3 Units 3 Units, subcutaneous, Once, On Sat03/31/24 at 0330, For 1 dose Given 03/31/2024 3:05 AM CDT 3 Units Left Upper Arm insulin lispro (HumaLOG, ADMELOG) 100 unit/mL injection 5 Units 5 Units, subcutaneous, 3 times daily with meals, First dose (after last modification) on 03/28/24 at 1200, If BG greater than or equal to [...] 70 mg/dL., Indications: Diabetes MellitusIndications:Diabetes Mellitus Given 03/29/2024 12:05 PM CDT 5 Units Left Upper Arm Given 03/29/2024 8:02 AM CDT 5 Units Le ft Upper Arm Given 03/28/2024 5:31 PM CDT 5 Units Le ft Upper Abdomen insulin lispro (HumaLOG, ADMELOG) 100 unit/mL injection 5 Units 5 Units, subcutaneous, 3 times daily with meals, First dose (after last modification) on Sat03/30/24 at 1200, If BG greater than or equal to [...] 70 mg/dL., Indications: Diabetes MellitusIndications:Diabetes Mellitus Given 03/31/2024 12:02 PM CDT 5 Units Left Lower Abdomen Given 03/31/2024 8:30 AM CDT 5 Units Le ft Upper Arm Given 03/30/2024 5:09 PM CDT 5 Units Le ft Lower Abdomen insulin lispro (HumaLOG, ADMELOG) 100 unit/mL injection 8 Units 8 Units, subcutaneous, Once, On Sat03/29/24 at 2315, For 1 dose Given 03/29/2024 10:46 PM CDT 8 Units Right Lower Abdomen ioversoL (OPTIRAY 350) syringe 100 mL 100 mL, intravenous, Once in imaging, contrast, Starting on Sat03/27/24 at 2201, For 1 dose Contrast Given 03/27/2024 10:03 PM CDT 80 mL Left Forearm ipratropium (ATROVENT) 0.02 % nebulizer solution 0.5 mg 0.5 mg, nebulization, Once, On Sat03/27/24 at 2140, For 1 dose Given 03/27/2024 10:03 PM CDT 0.5 mg ipratropium-albuteroL (DUO-NEB) 0.5-2.5 mg/3 mL nebulizer solution 3 mL 3 mL, nebulization, Every 6 hours while awake (respiratory assistant), First dose on 03/29/24 at 1045, Indications: Chronic Obstructive Pulmonary Disease with BronchospasmsIndications:C hronic Obstructive Pulmonary Disease with Bronchospasms Given 03/31/2024 8:03 PM CDT 3 mL Given 03/31/2024 2:23 PM CDT 3 mL Given 03/31/2024 7:13 AM CDT 3 mL ipratropium-albuteroL (DUO-NEB) 0.5-2.5 mg/3 mL nebulizer solution 3 mL 3 mL, nebulization, Every 6 hours PRN (respiratory assistant), wheezing, shortness of breath, Starting on Sat04/01/24 at 0715, Indications: Chronic Obstructive Pulmonary Disease with BronchospasmsIndications:Chronic Obstructive Pulmonary Disease with Bronchospasms Given 04/03/2024 10:14 AM CDT 3 mL loperamide (IMODIUM) capsule 2 mg 2 mg, oral, 4 times daily PRN, diarrhea, Starting on 03/28/24 at 1404, Maximum recommended dose 16 mg/day Given 03/29/2024 8:37 PM CDT 2 mg Given 03/28/2024 6:09 PM CDT 2 mg Given 03/28/2024 2:52 PM CDT 2 mg magnesium sulfate 2 g/50 mL in water (premix) 2 g 2 g, intravenous, Administer over 60 Minutes, Once, On 03/29/24 at 0645, For 1 dose New Bag 03/29/2024 6:12 AM CDT 2 g methylPREDNISolone sodium succinate (SOLU-medrol) preservative free injection 40 mg 40 mg, intravenous, Administer over 3 Minutes, Every 24 hours scheduled, First dose on 03/29/24 at 1215, Administer 125 mg or less over 3 minutes Given 03/30/2024 8:37 AM CDT 40 mg Given 03/29/2024 12:05 PM CDT 40 mg morphine injection 2 mg 2 mg, intravenous, Administer over 4 Minutes, Every 4 hours PRN, 3rd line for pain, Starting on 03/29/24 at 1217, Indications: PainIndications:Pain Given 04/02/2024 10:42 AM CDT 2 mg Given 04/01/2024 8:17 PM CDT 2 mg Given 03/31/2024 8:16 PM CDT 2 mg mycophenolate mofetil (CELLCEPT) tablet 1,000 mg 1,000 mg, oral, 2 times daily, First dose on 03/30/24 at 1345, Do not crush, chew, cut, dissolve, open or otherwise manipulate tablet/capsule. Given 04/03/2024 8:24 AM CDT 1,000 mg Given 04/02/2024 8:39 PM CDT 1,000 mg Given 04/02/2024 8:47 AM CDT 1,000 mg nicotine (NICODERM CQ) 21 mg patch 24 hour 1 patch 1 patch, transdermal, Administer over 24 Hours, Nightly, First dose on 03/28/24 at 2100, Apply a new patch every 24 hours to a clean, dry, hairless site on the upper arm or hip. Rotate site. Medication Applied 04/02/2024 8:38 PM CDT 1 patch Right Arm Medication Applied 04/01/2024 8:16 PM CDT 1 patch Left Shoulder Medication Applied 03/31/2024 8:06 PM CDT 1 patch Right Shoulder ondansetron (ZOFRAN) injection 4 mg 4 mg, intravenous, Administer over 2 Minutes, Every 6 hours PRN, nausea, vomiting, if not tolerating PO, Starting on 03/28/24 at 0242, Indications: Nausea and VomitingIndications:Nausea and Vomiting ondansetron ODT (ZOFRAN-ODT) disintegrating tablet 4 mg 4 mg, oral, Every 6 hours PRN, nausea, vomiting, Starting on 03/28/24 at 0242, Indications: Nausea and VomitingIndications:Nausea and Vomiting pantoprazole DR (PROTONIX) extended release tablet 40 mg 40 mg, oral, 2 times daily, First dose on 03/28/24 at 0900, Do not crush, chew, cut, dissolve, open or otherwise manipulate tablet/capsule., Indications: Stress Ulcer ProphylaxisIndications:Stress Ulcer Prophylaxis Given 04/03/2024 8:24 AM CDT 40 mg Given 04/02/2024 8:39 PM CDT 40 mg Given 04/02/2024 8:47 AM CDT 40 mg potassium chloride ER (KLOR-CON) extended release tablet 20 mEq 20 mEq, oral, Once, On 03/29/24 at 1015, For 1 dose, Administer 4 hours after first dose of supplemental potassium chloride. Do not crush, chew, cut, dissolve, open or otherwise manipulate tablet/capsule., Indications: hypokalemiaIndications:hypokalemia Given 03/29/2024 8:42 AM CDT 20 mEq potassium chloride ER (KLOR-CON) extended release tablet 40 mEq 40 mEq, oral, Once, On 03/29/24 at 0645, For 1 dose, Do not crush, chew, cut, dissolve, open or otherwise manipulate tablet/capsule., Indications: hypokalemiaIndications:hypokalemia Given 03/29/2024 6:12 AM CDT 40 mEq predniSONE (DELTASONE) tablet 10 mg 10 mg, oral, Daily, First dose (after last modification) on Sat03/31/24 at 0900 Given 04/03/2024 8:18 AM CDT 10 mg Given 04/02/2024 8:48 AM CDT 10 mg Given 04/01/2024 8:33 AM CDT 10 mg predniSONE (DELTASONE) tablet 50 mg 50 mg, oral, Once, On Sat03/27/24 at 2140, For 1 dose Given 03/27/2024 11:00 PM CDT 50 mg ramelteon (ROZEREM) tablet 8 mg 8 mg, oral, Nightly PRN, sleep, Starting on 03/28/24 at 0242, Indications: Sleep-Onset InsomniaIndications:Sleep-Onset Insomnia Given 04/02/2024 8:39 PM CDT 8 m g Given 03/31/2024 8:16 PM CDT 8 mg Given 03/29/2024 8:28 PM CDT 8 mg rivaroxaban (XARELTO) tablet 20 mg 20 mg, oral, Daily with breakfast, First dose on 03/28/24 at 0800, Nurse to discontinue heparin infusion order and associated bolus at first administration of rivaroxaban using 'order condition met' order source. If patient is eating, administer doses of 15 mg or greater with food. If patient is not eating, still administer dose unless instructed differently by provider. , Indications: Venous ThrombosisIndications:Venous Thrombosis Given 04/03/2024 8:18 AM CDT 20 m g Given 04/02/2024 8:48 AM CDT 20 mg Given 04/01/2024 8:33 AM CDT 20 mg sodium chloride 0.9% bolus 1,000 mL 1,000 mL, intravenous, Once, On Sat03/27/24 at 2129, For 1 dose New Bag 03/27/2024 9:39 PM CDT 1,000 mL sodium chloride 0.9% bolus 1,000 mL 1,000 mL, intravenous, Once, On Sat03/27/24 at 2140, For 1 dose New Bag 03/27/2024 11:14 PM CDT 1,000 mL sodium chloride 0.9% bolus 100 mL 100 mL, intravenous, Once in imaging, other, Line flush, Starting on Sat03/27/24 at 2201, For 1 dose New Bag 03/27/2024 10:04 PM CDT 100 mL Left Forearm sucralfate (CARAFATE) 100 mg/mL oral suspension 1 g 1 g, oral, 4 times daily (with meals and nightly), First dose on Sat03/28/24 at 0800 Given 04/03/2024 11:56 AM CDT 1 g Given 04/03/2024 8:19 AM CDT 1 g Given 04/02/2024 8:39 PM CDT 1 g tacrolimus immediate-release capsule 0.5 mg 0.5 mg, oral, Every other day, First dose on Sat03/30/24 at 1345, Avoid grapefruit juice Given 04/03/2024 8:24 AM C DT 0.5 mg Given 04/01/2024 8:34 AM CDT 0.5 mg Given 03/30/2024 2:42 PM CDT 0.5 mg vancomycin 1500 mg/250 mL in sodium chloride 0.9% (premix) 1,500 mg 1,500 mg, intravenous, Administer over 90 Minutes, Once, On Sat03/27/24 at 2139, For 1 dose, Indications: SepsisIndications:Sepsis New Bag 03/27/2024 11:30 PM CDT 1,500 mg voriCONAZOLE (VFEND) tablet 200 mg 200 mg, oral, 2 times daily, First dose on Sat03/28/24 at 0900, Indications: Prophylaxis, MedicalIndications:Prophylaxis, Medical Given 04/03/2024 8:25 AM CDT 200 mg Given 04/02/2024 9:48 PM CDT 200 mg Given 04/02/2024 8:53 AM CDT 200 mg documented in this encounter Discontinued Medications Medication Sig Discontinue Reason Start Date End Da te guaiFENesin (ROBITUSSIN) syrup 100 mg/5 mL Take 5 mL (100 mg total) by mouth 3 (three) times a day as needed for cough or congestion Therapy completed 03/30/2024 ceFAZolin (ANCEF) 2,000 mg/50 mL IVPB Infuse 50 mL (2 g total) into a venous catheter every 8 (eight) hours for 26 days Stop Taking at Discharge 03/07/2024 04/03/2024 documented as of this encounter Historical Medications * This list may reflect changes made after this encounter. albuterol 2.5 mg /3 mL (0.083 %) nebulizer solution Take 3 mL (2.5 mg total) by nebulization every 6 (six) hours as needed for wheezing or shortness of breath UNKNOWN TO PATIENT Take 1 capsule by mouth daily Probiotic 4 UNKNOWN TO PATIENT Take 500 mg by mouth daily Patient endorses taking unknown 500 mg Iron product 4 ascorbic acid 500 mg tablet,chewable Take 1 tablet/chew tab (500 mg total) by mouth daily 4 zinc gluconate 50 mg tablet Take 1 tablet (50 mg total) by mouth daily 4 magnesium oxide (MAG-OX) 250 mg (150.8 mg elemental) tablet Take 1 tablet (250 mg total) by mouth every other day 4 added in this encounter Active and Recently Administered Medications Times are shown in CDT. Scheduled Medication Order 04/01/2024 04/02/2024 04/03/2024 acyclovir (ZOVIRAX) capsule 400 mg 400 mg, oral, Every 8 hours scheduled, First dose on 03/28/24 at 0600, Indications: Prophylaxis, Medical 0542 (Given - Provider: Jared Heller RN)1407 (Given - Provider: Jenifer Alcantar RN)2015 (Given - Provider: Nadia Mancia RN) 0550 (Given - Provider: Nadia Mancia RN)1351 (Given - Provider: Gamaliel Morin)2039 (Given - Provider: Vianey Colon RN) 0533 (Given - Provider: Vianey Colon RN)1311 (Given - Provider: Gamaliel Morin) atorvastatin (LIPITOR) tablet 40 mg 40 mg, oral, Daily, First dose on 03/28/24 at 0900 0833 (Given - Provider: Jenifer Alcantar RN) 0847 (Given - Provider: Gamaliel Morin) 0818 (Given - Provider: Gamaliel Morin) cefepime (MAXIPIME) 1,000 mg in sodium chloride 0.9% 100 mL IVPB (COMPLETED) 1,000 mg, intravenous, at 200 mL/hr, Administer over 30 Minutes, Every 6 hours scheduled, First dose (after last reorder) on 03/28/24 at 0500, For 26 doses, Mini-Bag Plus bag, Indications: Pneumonia, Community Acquired 0542 (New Bag - Provider: Jared Heller RN)1219 (New Bag - Provider: Jenifer lAcantar RN)1702 (New Bag - Provider: Jenifer Alcantar RN)2316 (New Bag - Provider: Nadia Mancia RN) 0550 (New Bag - Provider: Nadia Mancia RN)1127 (New Bag - Provider: Gamaliel Morin)1705 (New Bag - Provider: Gamaliel Morin)2346 (New Bag - Provider: Vianey Colon RN) 0533 (New Bag - Provider: Vianey Colon RN)1156 (New Bag - Provider: Gamaliel Morin) cholecalciferol (VITAMIN D-3) tablet 2,000 Units 2,000 Units, oral, Every morning, First dose on 03/28/24 at 0900, Each tablet contains 1,000 units (25 mcg) of cholecalciferol. 0833 (Given - Provider: Jenifer Alcantar RN) 0848 (Given - Provider: Gamaliel Morin) 0818 (Given - Provider: Gamaliel Morin) cyanocobalamin (Vitamin B-12) tablet 1,000 mcg 1,000 mcg, oral, Every morning, First dose on 03/28/24 at 0900 0833 (Given - Provider: Jenifer Alcantar RN) 0847 (Given - Provider: Gamailel Morin) 0818 (Given - Provider: Gamaliel Morin) gabapentin (NEURONTIN) capsule 300 mg 300 mg, oral, 4 times daily, First dose on 03/28/24 at 0800 0833 (Given - Provider: Jenifer Alcantar RN)1219 (Given - Provider: Jenifer Alcantar RN)170 (Given - Provider: Jenifer Alcantar RN)2016 (Given - Provider: Nadia Mancia RN) 0847 (Given - Provider: Gamaliel Morin)112 (Given - Provider: Gamaliel Morin)1705 (Given - Provider: Gamaliel Morin)2038 (Given - Provider: Vianey Colon RN) 0818 (Given - Provider: Gamaliel Morin)1156 (Given - Provider: Gamaliel Morin) guaiFENesin ER (MUCINEX) extended release tablet 600 mg 600 mg, oral, 2 times daily, First dose on 03/28/24 at 0900, Do not crush, chew, cut, dissolve, open or otherwise manipulate tablet/capsule. 0833 (Given - Provider: Jenifer Alcantar RN)2016 (Given - Provider: Nadia Mancia RN) 0847 (Given - Provider: Gamaliel Morin)2038 (Given - Provider: Vianey Colon, BECKI) 0818 (Given - Provider: Gamaliel Morin) insulin glargine (LANTUS, SEMGLEE) 100 unit/mL injection 10 Units 10 Units, subcutaneous, Every morning, First dose (after last modification) on Sat04/01/24 at 0900, Do not hold if NPO. Do not mix with other insulins, Indications: Diabetes Mellitus 0834 (Given - Provider: Jenifer Alcantar RN) 0849 (Given - Provider: Gamaliel Morin) 0821 (Given - Provider: Gamaliel Morin) insulin lispro (HumaLOG, ADMELOG) 100 unit/mL injection 0-4 Units 0-4 Units, subcutaneous, Nightly, First dose on 5/12/24 at 2100, Blood glucose mg/dL: 199 or less: No insulin 200-249: add 1 unit 250-299: add 2 units 300-349: add 3 units and notify physician for adjustment of insulin orders. 350-399: add 4 units and notify physician for adjustment of insulin orders. Over 400: Notify physician for adjustment of insulin orders. Do NOT hold for NPO Status, Indications: Diabetes Mellitus 192 (Not Given - Provider: Nadai Mancia RN - Reason: Order parameters not met) 2039 (Not Given - Provider: Vianey Colon RN - Reason: Order parameters not met) insulin lispro (HumaLOG, ADMELOG) 100 unit/mL injection 0-5 Units 0-5 Units, subcutaneous, 3 times daily with meals, First dose on Sat03/29/24 at 1300, Blood glucose mg/dL: 149 or less: No insulin 150-199: add 1 unit 200-249: add 2 units 250-299: add 3 units 300-349: add 4 units and notify physician for adjustment of insulin orders. 350-399: add 5 units and notify physician for adjustment of insulin orders. Over 400: Notify physician for adjustment of insulin orders. Do NOT hold for NPO Status, Indications: Diabetes Mellitus 0834 (Given - Provider: Jenifer Alcantar RN)1219 (Given - Provider: Jenifer Alcantar RN)1702 (Given - Provider: Jenifer Alcantar RN) 0755 (Not Given - Provider: Gamaliel Morin - Reason: Order parameters not met)1113 (Not Given - Provider: Gamaliel Morin - Reason: Order parameters not met)1704 (Given - Provider: Gamaliel Morin) 0819 (Given - Provider: Gamaliel Morin)1157 (Given - Provider: Gamaliel Morin) insulin lispro (HumaLOG, ADMELOG) 100 unit/mL injection 10 Units 10 Units, subcutaneous, 3 times daily with meals, First dose (after last modification) on Sat03/31/24 at 1800, If BG greater than or [...] less than 70 mg/dL., Indications: Diabetes Mellitus 0834 (Given - Provider: Jenifer Alcantar RN)1219 (Given - Provider: Jenifer Alcantar RN)1703 (Given - Provider: Jenifer Alcantar RN) 0849 (Given - Provider: Gamaliel Morin)1159 (Given - Provider: Gamaliel Morin)1705 (Given - Provider: Gamaliel Morin) 0820 (Given - Provider: Gamaliel Morin)1157 (Given - Provider: Gamaliel Morin) mycophenolate mofetil (CELLCEPT) tablet 1,000 mg 1,000 mg, oral, 2 times daily, First dose on 03/30/24 at 1345, Do not crush, chew, cut, dissolve, open or otherwise manipulate tablet/capsule. 0833 (Given - Provider: Jenifer Aclantar RN)2015 (Given - Provider: Nadia Mancia RN) 0847 (Given - Provider: Gamaliel Morin)2038 (Given - Provider: Vianey Colon RN) 08 (Given - Provider: Gamaliel Morin) nicotine (NICODERM CQ) 21 mg patch 24 hour 1 patch 1 patch, transdermal, Administer over 24 Hours, Nightly, First dose on 03/28/24 at 2100, Apply a new patch every 24 hours to a clean, dry, hairless site on the upper arm or hip. Rotate site. 2015 (Medication Applied - Provider: Nadia Mancia RN)2016 (Medication Removed - Provider: Nadia Mancia RN) 2037 (Medication Applied - Provider: Vianey Colon RN)2039 (Medication Removed - Provider: Vianey Colon RN) 144 (Due: Medication Removed - Provider: Automatic Discharge Provider - Comment: Time automatically adjusted from order being discontinued) pantoprazole DR (PROTONIX) extended release tablet 40 mg 40 mg, oral, 2 times daily, First dose on 03/28/24 at 0900, Do not crush, chew, cut, dissolve, open or otherwise manipulate tablet/capsule., Indications: Stress Ulcer Prophylaxis 0833 (Given - Provider: Jenifer Alcantar RN)2017 (Given - Provider: Nadia Mancia, BECKI) 0847 (Given - Provider: Gamaliel Morin)2038 (Given - Provider: Vianey Colon, RN) 0824 (Given - Provider: Gamaliel Morin) predniSONE (DELTASONE) tablet 10 mg 10 mg, oral, Daily, First dose (after last modification) on Sat03/31/24 at 0900 0833 (Given - Provider: Jenifer Alcantar RN) 0848 (Given - Provider: Gamaliel Morin) 0818 (Given - Provider: Gamaliel Morin) rivaroxaban (XARELTO) tablet 20 mg 20 mg, oral, Daily with breakfast, First dose on 03/28/24 at 0800, Nurse to discontinue heparin infusion order and associated bolus at first administration of rivaroxaban using 'order condition met' order source. If patient is eating, administer doses of 15 mg or greater with food. If patient is not eating, still administer dose unless instructed differently by provider. , Indications: Venous Thrombosis 0833 (Given - Provider: Jenifer Alcantar RN) 0848 (Given - Provider: Gamaliel Morin) 0818 (Given - Provider: Gamaliel Morin) sucralfate (CARAFATE) 100 mg/mL oral suspension 1 g 1 g, oral, 4 times daily (with meals and nightly), First dose on 03/28/24 at 0800 0833 (Given - Provider: Jenifer Alcantar RN)1219 (Given - Provider: Jenifer Alcantar RN)1702 (Given - Provider: Jenifer Alcantar RN)2017 (Given - Provider: Nadia Mancia, BECKI) 0848 (Given - Provider: Gamaliel Morin)1127 (Given - Provider: Gamaliel Morin)170 (Given - Provider: Gamaliel Morin)2038 (Given - Provider: Vianey Colon, RN) 0819 (Given - Provider: Gamaliel Morin)1156 (Given - Provider: Gamaliel Morin) tacrolimus immediate-release capsule 0.5 mg 0.5 mg, oral, Every other day, First dose on Sat03/30/24 at 1345, Avoid grapefruit juice 0834 (Given - Provider: Jenifer Alcantar, BECKI) 0824 (Given - Provider: Gamaliel Morin) voriCONAZOLE (VFEND) tablet 200 mg 200 mg, oral, 2 times daily, First dose on 03/28/24 at 0900, Indications: Prophylaxis, Medical 0834 (Given - Provider: Jenifer Alcantar, BECKI)2015 (Given - Provider: Nadia Mancia RN) 0853 (Given - Provider: Gamaliel Morin)2147 (Given - Provider: Vianey Colon RN) 08 (Given - Provider: Gamaliel Morin) PRN Medication Order 04/01/2024 04/02/2024 04/03/2024 acetaminophen (TYLENOL) 32 mg/mL oral liquid 650 mg(Linked Group 1) 650 mg, feeding tube, Every 4 hours PRN, 1st line for pain, fever, Starting on 03/28/24 at 0242, Administer if patient receiving meds per tube., Indications: Fever, Pain acetaminophen (TYLENOL) suppository 650 mg(Linked Group 1) 650 mg, rectal, Every 4 hours PRN, 1st line for pain, fever, Starting on 03/28/24 at 0242, Administer if patient cannot tolerate enteral route., Indications: Fever, Pain acetaminophen (TYLENOL) tablet 650 mg(Linked Group 1) 650 mg, oral, Every 4 hours PRN, 1st line for pain, fever, Starting on 03/28/24 at 0242, Administer if patient can swallow tablets., Indications: Fever, Pain acetaminophen (TYLENOL) tablet 975 mg(Linked Group 2) 975 mg (rounded from 1,000 mg), oral, Nightly PRN, other, sleep, Starting on 03/28/24 at 0319, Formulary sub for Tylenol PM albuterol HFA (PROVENTIL HFA,VENTOLIN HFA,PROAIR HFA) 90 mcg/actuation inhaler 2 puff 2 puff, inhalation, Every 6 hours PRN (respiratory assistant), wheezing, Starting on 03/28/24 at 0301 benzonatate (TESSALON) capsule 100 mg 100 mg, oral, 3 times daily PRN, cough, Starting on 03/28/24 at 0612, Do not crush, chew, cut, dissolve, open or otherwise manipulate tablet/capsule., Indications: Cough bisacodyL (DULCOLAX) suppository 10 mg(Linked Group 3) 10 mg, rectal, Daily PRN, constipation, if no results 24 hours after polyethylene glycol administration, Starting on 03/28/24 at 0242, Administer if not tolerating PO., Indications: constipation bisacodyl EC (DULCOLAX EC) tablet 10 mg(Linked Group 3) 10 mg, oral, Daily PRN, constipation, if no results 24 hours after polyethylene glycol administration, Starting on 03/28/24 at 0242, Administer if tolerating PO. Do not crush, chew, cut, dissolve, open or otherwise manipulate tablet/capsule., Indications: constipation Carrier Fluids for Secondary Infusion - 0.9% Sodium Chloride 30 mL, intravenous, As needed, For priming tubing and/or flushing, Starting on 03/29/24 at 2249, 0-250ml/hr to flush line after IV infusions when no maintenance IV ordered. Infuse 30mL at the same rate as the secondary infusion. Run as primary IV, not intended for O 0014 (Given - Provider: Nadia Mancia RN) dextrose (D10W) 10% bolus 250 mL(Linked Group 4) 250 mL, intravenous, at 1,000 mL/hr, Administer over 15 Minutes, Every 15 min PRN, blood glucose less than 70 mg/dL and UNABLE to swallow/take PO glucose/juice., Starting on 03/28/24 at 0925, After treatment for hypoglycemia, recheck BG followed by treatment every 15 minutes until the BG is greater than 100 mg/dL. Then check BG 1 hour post treatment. If BG is less than 100 mg/dL, repeat Q15 minute BG checks and treatment. Call MD for each episode of hypoglycemia., Indications: hypoglycemic disorder dextrose (GLUTOSE) 40 % gel 15 g(Linked Group 4) 15 g, oral, Every 15 min PRN, low blood sugar, blood glucose less than 70 mg/dL, Starting on 03/28/24 at 0925, If patient is alert and able to [...] Call MD for each episode of hypoglycemia. DRY END OPERATOR STATES GLUTOSE-15 CONTAINS GLUCOSE 40% W/W (50% W/V), Indications: hypoglycemic disorder diphenhydrAMINE (BENADRYL) tab/cap 50 mg(Linked Group 2) 50 mg, oral, Nightly PRN, sleep, Starting on Sat03/28/24 at 0318, Formulary sub for Tylenol PM 2016 (Given - Provider: Nadia Mancia RN) glucagon injection 1 mg 1 mg, intramuscular, Every 30 min PRN, low blood sugar, blood glucose less than 70 mg/dL AND no IV access AND unable to take PO glucose/juice., Starting on Sat03/28/24 at 0925, After Glucagon is administered, position patient on [...] reconstitution. guaiFENesin (ROBITUSSIN) 20 mg/mL oral liquid 100 mg 100 mg, oral, 3 times daily PRN, cough, congestion, Starting on Sat03/28/24 at 0241 ipratropium-albuteroL (DUO-NEB) 0.5-2.5 mg/3 mL nebulizer solution 3 mL 3 mL, nebulization, Every 6 hours PRN (respiratory assistant), wheezing, shortness of breath, Starting on Sat04/01/24 at 0715, Indications: Chronic Obstructive Pulmonary Disease with Bronchospasms 1014 (Given - Provider: Shaye Yarbrough, TENANT RELATIONS COORDINATOR) loperamide (IMODIUM) capsule 2 mg 2 mg, oral, 4 times daily PRN, diarrhea, Starting on Sat03/28/24 at 1404, Maximum recommended dose 16 mg/day morphine injection 2 mg 2 mg, intravenous, Administer over 4 Minutes, Every 4 hours PRN, 3rd line for pain, Starting on 03/29/24 at 1217, Indications: Pain 2016 (Given - Provider: Nadia Mancia, RN) 104 (Given - Provider: Gamaliel Morin) ondansetron (ZOFRAN) injection 4 mg(Linked Group 5) 4 mg, intravenous, Administer over 2 Minutes, Every 6 hours PRN, nausea, vomiting, if not tolerating PO, Starting on 03/28/24 at 0242, Indications: Nausea and Vomiting ondansetron ODT (ZOFRAN-ODT) disintegrating tablet 4 mg(Linked Group 5) 4 mg, oral, Every 6 hours PRN, nausea, vomiting, Starting on 03/28/24 at 0242, Indications: Nausea and Vomiting polyethylene glycol (MIRALAX) packet 17 g 17 g, oral, Daily PRN, constipation, Starting on 03/28/24 at 0242, Indications: constipation ramelteon (ROZEREM) tablet 8 mg 8 mg, oral, Nightly PRN, sleep, Starting on 03/28/24 at 0242, Indications: Sleep-Onset Insomnia 2038 (Given - Provider: Vianey Colon RN) Linked Groups Order Group 1: acetaminophen (TYLENOL) tablet 650 mgJump to med 650 mg, oral, Every 4 hours PRN, 1st line for pain, fever, Starting on 03/28/24 at 0242, Administer if patient can swallow tablets., Indications: Fever, Pain Or acetaminophen (TYLENOL) 32 mg/mL oral liquid 650 mgJump to med 650 mg, feeding tube, Every 4 hours PRN, 1st line for pain, fever, Starting on 03/28/24 at 0242, Administer if patient receiving meds per tube., Indications: Fever, Pain Or acetaminophen (TYLENOL) suppository 650 mgJump to med 650 mg, rectal, Every 4 hours PRN, 1st line for pain, fever, Starting on 03/28/24 at 0242, Administer if patient cannot tolerate enteral route., Indications: Fever, Pain Group 2: diphenhydrAMINE (BENADRYL) tab/cap 50 mgJump to med 50 mg, oral, Nightly PRN, sleep, Starting on 03/28/24 at 0318, Formulary sub for Tylenol PM And acetaminophen (TYLENOL) tablet 975 mgJump to med 975 mg (rounded from 1,000 mg), oral, Nightly PRN, other, sleep, Starting on 03/28/24 at 0319, Formulary sub for Tylenol PM Group 3: bisacodyl EC (DULCOLAX EC) tablet 10 mgJump to med 10 mg, oral, Daily PRN, constipation, if no results 24 hours after polyethylene glycol administration, Starting on 03/28/24 at 0242, Administer if tolerating PO. Do not crush, chew, cut, dissolve, open or otherwise manipulate tablet/capsule., Indications: constipation Or bisacodyL (DULCOLAX) suppository 10 mgJump to med 10 mg, rectal, Daily PRN, constipation, if no results 24 hours after polyethylene glycol administration, Starting on 03/28/24 at 0242, Administer if not tolerating PO., Indications: constipation Group 4: dextrose (GLUTOSE) 40 % gel 15 gJump to med 15 g, oral, Every 15 min PRN, low blood sugar, blood glucose less than 70 mg/dL, Starting on 03/28/24 at 0925, If patient is alert and able to [...] Call MD for each episode of hypoglycemia. DRY END OPERATOR STATES GLUTOSE-15 CONTAINS GLUCOSE 40% W/W (50% W/V), Indications: hypoglycemic disorder Or dextrose (D10W) 10% bolus 250 mLJump to med 250 mL, intravenous, at 1,000 mL/hr, Administer over 15 Minutes, Every 15 min PRN, blood glucose less than 70 mg/dL and UNABLE to swallow/take PO glucose/juice., Starting on 03/28/24 at 0925, After treatment for hypoglycemia, recheck BG followed by treatment every 15 minutes until the BG is greater than 100 mg/dL. Then check BG 1 hour post treatment. If BG is less than 100 mg/dL, repeat Q15 minute BG checks and treatment. Call MD for each episode of hypoglycemia., Indications: hypoglycemic disorder Group 5: ondansetron ODT (ZOFRAN-ODT) disintegrating tablet 4 mgJump to med 4 mg, oral, Every 6 hours PRN, nausea, vomiting, Starting on 03/28/24 at 0242, Indications: Nausea and Vomiting Or ondansetron (ZOFRAN) injection 4 mgJump to med 4 mg, intravenous, Administer over 2 Minutes, Every 6 hours PRN, nausea, vomiting, if not tolerating PO, Starting on 03/28/24 at 0242, Indications: Nausea and Vomiting documented in this encounter Orders Medications Ordered That Girma ht Not Have Been Administered Count Last Ordered Date First Ordered Date insulin glargine (LANTUS, SE MGLEE) 100 unit/mL injection 20 Units 1 03/31/2024 insulin glargine (LANTUS, SE MGLEE) 100 unit/mL injection 12 Units 1 03/30/2024 predniSONE (DELTASONE) tablet 20 mg 1 03/30 dextrose (D10W) 10% bolus 250 mL 2 03/29/20 24 03/28/2024 dextrose (GLUTOSE) 40 % gel 15 g 2 03/29/20 24 03/28/2024 glucagon injection 1 mg 2 03/29/202403/18 ipratropium-albuteroL (DUO-N EB) 0.5-2.5 mg/3 mL nebulizer solution - ADS Override Pull 1 03/29/2024 acetaminophen (TYLENOL) 32 m g/mL oral liquid 650 mg 1 03/28/2024 acetaminophen (TYLENOL) suppository 650 mg 1 03/28/2024 acetaminophen (TYLENOL) tablet 650 mg 1 09/2024 acetaminophen (TYLENOL) tablet 975 mg 1 09/2024 albuterol HFA (PROVENTIL HFA ,VENTOLIN HFA,PROAIR HFA) 90 mcg/actuation inhaler 2 puff 1 03/28/2024 bisacodyL (DULCOLAX) suppository 10 mg 1 bisacodyl EC (DULCOLAX EC) tablet 10 mg 1 0 03/28/2024 cefepime (MAXIPIME) 1,000 mg in sodium chloride 0.9% 100 mL IVPB 1 03/28/2024 diphenhydrAMINE-acetaminophe n (TYLENOL PM) 25-500 mg per tablet 2 tablet 1 03/28/2024 insulin glargine (LANTUS, SE MGLEE) 100 unit/mL injection 9 Units 1 03/28/2024 insulin lispro (HumaLOG, ADM ELOG) 100 unit/mL injection 0-4 Units 1 03/28/2024 insulin lispro (HumaLOG, ADM ELOG) 100 unit/mL injection 3 Units 1 03/28/2024 ondansetron (ZOFRAN) injection 4 mg 1 03/28 ondansetron ODT (ZOFRAN-ODT) disintegrating tablet 4 mg 1 03/28/2024 polyethylene glycol (MIRALAX) packet 17 g 1 03/28/2024 sodium chloride 0.9 % nebuli zer solution - ADS Override Pull 1 03/27/2024 Lab Orders Without Results Count Last Ordered D ate First Ordered Date POCT GLUCOSE DEVICE 30 04/03/2024 03/27/20 24 Nursing Count Last Ordered Date First Orde red Date DISCHARGE ACTIVITY 1 04/03/2024 DISCHARGE INSTRUCTIONS 1 04/03/2024 FOLLOW UP WITH ESTABLISHED PROVIDER 1 04/03 Consult Count Last Ordered Date First Orde red Date IP CONSULT TO INFECTIOUS DISEASES 1 024 CONSULT TO TRANSITIONAL CARE 1 03/30/2024 Admission Count Last Ordered Date First Orde red Date ADMIT TO INPATIENT 1 03/28/2024 Discharge Count Last Ordered Date First Orde red Date DISCHARGE PATIENT 1 04/03/2024 CORE MEASURES Count Last Ordered Date First Ord ered Date REASON FOR NO VTE PROPHYLAXIS AT ADMISSION 1 03/28/2024 documented in this encounter Additional Health Concerns Infection Onset Date Last Indicated Resolved Time COVID: Suspected 03/27/2024 03/27/2024 03/28/2024 12:07 AM CDT documented as of this encounter Care Teams Commissioned Fire Officer Relationship Specialty Start Date End Date Gama Lindsay DO PCP - General Internal Medicine 02/02/21 Josué Del Valle MD PhD Medical Oncologist/Analog Device Designer Medical Oncology 08/26/19 Cal Carranza DO [address] [facility] [address] [place] [address] Optical Design Engineer Internal Medicine 06/12/23 Halie Khan MD [address] [facility] [address] [place] [address] Main Line Assembler Critical Care Med 06/12/23 Wilfred Kinsey MD [address] [address] Consulting Physician Gastroenterology 03/02/24 documented as of this encounter
--- OUTSIDE RECORDS SUMMARY | 2024-11-22 10:49 | XMS_ITS | Encounter Summary ---
Author Organization [facility] Address [address] [place] [address] Phone Care Team Providers Care Household Cook Name Role Phone Josué Del Valle MD PhD Unavailable [phone] Kirt Lindsay DO Primary Care Provider [phone] Cal Carranza DO Unavailable [phone] Halie Khan MD Unavailable [phone] Wilfred Kinsey MD Unavailable Encounter Details Date Type Department Care Team (Late st Contact Info) Description 04/01/2024 Telephone [facility] Bone Marrow Transplant [address] [facility] Advanced Medicine 7th Floor, [place] [address] Josué Del Valle MD PhD [address] BONE MARROW TRANSPLANT[address] [place] [address] Social History Tobacco Use Types Packs/Day Years Used Date Smoking Tobacco: Some Days Cigarettes 0.5 40 Started: 1985 Smokeless Tobacco: Never Comments:pt states tried to quit [facility] Utilities Answer Date Recorded In the [...] week 03/30/2024 How often do you attend faith or pentecostalism serv ices? Never 03/30/2024 Do you belong to any clubs o r organizations such as faith groups, unions, fraternal or athletic groups, or [...] place to sleep or slept in a snf (including now)? No 03/30/2024 Personal Safety Answer Date Recorded Have you ever been in or are you currently in a harmful physical or emotional relationship or is someone making you feel afraid or unsafe? 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 * Telephone Encounter - Marisa Mcdermott - 04/01/2024 12:10 PM CDT [facility] ([phone]) calling for refill for Levofloxacin documented in this encounter Plan of Treatment Not on file documented as of this encounter Visit Diagnoses Not on filedocumented in this encounter Care Teams Household Cook Relationship Specialty Start Date End Date Kirt Lindsay DO PCP - General Internal Medicine 02/02/21 Josué Del Valle MD PhD Medical Oncologist/Debarker Operator Medical Oncology 08/26/19 Cal Carranza DO [address] [place] [address] Material Expediter Internal Medicine 06/12/23 Halie Khan MD [address] [facility] [address] [place] [address] Airport Operations Specialist Critical Care Med 06/12/23 Wilfred Kinsey MD [address] [facility] [address] [place] [address] Consulting Physician Gastroenterology 03/02/24 documented as of this encounter
--- OUTSIDE RECORDS SUMMARY | 2024-11-22 10:49 | XMS_ITS | Encounter Summary ---
Author Organization [facility] Address [address] [place] [address] Care Team Providers Care Service Line Coordinator Name Role Phone Josué Del Valle MD PhD Unavailable [phone] Kirt Lindsay DO Primary Care Provider [phone] Cal Carranza DO Unavailable [phone] Halie Khan MD Unavailable [phone] Wilfred Kinsey MD Unavailable Encounter Details Date Type Department Care Team (Late st Contact Info) Description 03/30/2024 T[facility] Initial Eligibility Review [facility] [address] [place] [address] Regi Lagos, TEST TECHNICIAN [address] [place] [address] Social History Tobacco Use Types Packs/Day Years Used Date Smoking Tobacco: Some Days Cigarettes 0.5 40 Started: 1985 Smokeless Tobacco: Never Comments:pt states tried to quit [facility] Utilities Answer Date Recorded In [...] week 03/30/2024 How often do you attend mu-ism or judaism serv ices? 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 Gender Identity Not on file Sexual Orientation Not on file documented as of this encounter Plan of Treatment Not on file documented as of this encounter Visit Diagnoses Not on filedocumented in this encounter Care Teams Service Line Coordinator Relationship Specialty Start Date End Date Kirt Lindsay DO PCP - General Internal Medicine 02/02/21 Josué Del Valle MD PhD Medical Oncologist/Production Welder Medical Oncology 08/26/19 Cal Carranza DO [address] [address] Rate Manager Internal Medicine 06/12/23 Halie Khan MD [address] [id number] Nnp Critical Care Med 06/12/23 Wilfred Kinsey MD [address] [address] Consulting Physician Gastroenterology 03/02/24 documented as of this encounter
--- OUTSIDE RECORDS SUMMARY | 2024-11-22 10:49 | XMS_ITS | Encounter Summary ---
Author Organization [facility] Address [address] [place] [address] Care Team Providers Care Biological Technician Name Role Phone Josué Del Valle MD PhD Unavailable [phone] Kirt Lindsay DO Primary Care Provider [phone] Cal Carranza DO Unavailable [phone] Halie Khan MD Unavailable [phone] Wilfred Kinsey MD Unavailable Encounter Details Date Type Department Care Team (Late st Contact Info) Description 04/06/2024 [facility] Initial Outreach [facility] [address] [place] [address] Vijaya Valencia, RN Social History Tobacco Use Types Packs/Day Years Used Date Smoking Tobacco: Some Days Cigarettes 0.5 40 Started: 1985 Smokeless Tobacco: Never Comments:pt states tried to quit [facility] Utilities Answer Date Recorded In [...] week 03/30/2024 How often do you attend alevism or zoroastrianism serv ices? Never 03/30/2024 Do you belong [...] in a longterm (including now)? No 03/30/2024 Personal Safety Answer Date Recorded Have you ever been in or are you currently in a harmful physical or emotional relationship or is someone making you feel afraid or unsafe? 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 No answer. Voice message left with TCC contact asking or return call.If patient returns call or on next outreach, please address the following: Per AVS: Follow up with Kirt Lindsay DO Specialty: Internal Medicine Follow up with established provider: 1 week Kirt Lindsay DO [address] [facility] [address] [place] [address] supervisor functional testing these medications from [id number] - [place], [place] - [address] Discharge Summary per on 04/03/24: Hospital Course: 58 y.o. 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 [...] his PCP within a week of discharge No future appointments. documented in this encounter Plan of Treatment Not on file documented as of this encounter Visit Diagnoses Not on filedocumented in this encounter Care Teams Biological Technician Relationship Specialty Start Date End Date Kirt Lindsay DO PCP - General Internal Medicine 02/02/21 Josué Del Valle MD PhD Medical Oncologist/Bander And Cellophaner Helper Machine Medical Oncology 08/26/19 Cal Carranza DO [address] [address] Corn Husker Internal Medicine 06/12/23 Halie Khan MD [address] [address] Product Manager [employer] Critical Care Med 06/12/23 Wilfred Kinsey MD [address] [address] Consulting Physician Gastroenterology 03/02/24 documented as of this encounter
--- OUTSIDE RECORDS SUMMARY | 2024-11-22 10:50 | XMS_ITS | Encounter Summary ---
Author Organization [facility] Address [address] [place] [address] Phone Care Team Providers Care Elementary Principal Name Role Phone Josué Del Valle MD PhD Unavailable [phone] Kirt Lindsay DO Primary Care Provider [phone] Cal Carranza DO Unavailable [phone] Halie Khan MD Unavailable [phone] Wilfred Kinsey MD Unavailable Encounter Details Date Type Department Care Team (Late st Contact Info) Description 03/06/2024 Telephone [facility] Oncology [address] [facility] Advanced Medicine 7th [place] [address] Irina Conrad Social History Tobacco Use Types Packs/Day Years Used Date Smoking Tobacco: Some Days Cigarettes 0.5 40 Started: 1985 Smokeless Tobacco: Never Comments:pt states tried to quit [facility] Utilities Answer Date Recorded In the [...] often do you attend chur ch or yarsanism services? Never 02/20/2024 Do you belong to any clubs o r organizations such as anglican groups, unions, fraternal or athletic groups, or [...] in a group home (including now)? No 02/20/2024 Personal Safety Answer Date Recorded Have you ever been in or are you currently in a harmful physical or emotional relationship or is someone making you feel afraid or unsafe? 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 Lissy Johnson RN +AFB stain 06/17/2024 06/17/2024 06/18/2024 10:45 AM CDT C. 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 07/23/2024 07/24/2024 07/24/2024 4:49 AM CDT documented as of this encounter Care Teams Elementary Principal Relationship Specialty Start Date End Date Kirt Lindsay DO PCP - General Internal Medicine 02/02/21 Josué Del Valle MD PhD Medical Oncologist/Oracle Consultant Medical Oncology 08/26/19 Cal Carranza DO [address] [place] [address] Suction Operator Internal Medicine 06/12/23 Halie Khan MD [address] [facility] [address] [place] [address] Certified Health Education Specialist Critical Care Med 06/12/23 Wilfred Kinsey MD [address] [address] Consulting Physician Gastroenterology 03/02/24 documented as of this encounter
--- OUTSIDE RECORDS SUMMARY | 2024-11-22 10:50 | XMS_ITS | Encounter Summary ---
Author Organization [facility] Address [address] [place] [address] Phone Care Team Providers Care Hearing Aid Repair Technician Name Role Phone Josué Del Valle MD PhD Unavailable [phone] Kirt Lindsay DO Primary Care Provider [phone] Cal Carranza DO Unavailable [phone] Halie Khan MD Unavailable [phone] Wilfred Kinsey MD Unavailable Encounter Details Date Type Department Care Team (Late st Contact Info) Description 03/02/2024 Telephone [facility] Oncology [address] [facility] Advanced [facility] 7th [place] [address] [place] [id number] Irina Conrad Social History Tobacco Use Types Packs/Day Years Used Date Smoking Tobacco: Some Days Cigarettes 0.5 40 Started: 1985 Smokeless Tobacco: Never Comments:pt states tried to quit [facility] Utilities Answer Date Recorded In the [...] often do you attend chur ch or restorationist services? 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 documented in this encounter Plan of Treatment Not on file documented as of this encounter Visit Diagnoses Not on filedocumented in this encounter Care Teams Hearing Aid Repair Technician Relationship Specialty Start Date End Date Kirt Lindsay DO PCP - General Internal Medicine 02/02/21 Josué Del Valle MD PhD Medical Oncologist/Bariatric Surgeon Medical Oncology 08/26/19 Cal Carranza DO [address] [id number] Acid Patroller Internal Medicine 06/12/23 Halie Khan MD [address] [phone] Charge Entry Specialist Critical Care Med 06/12/23 Wilfred Kinsey MD [address] [address] Consulting Physician Gastroenterology 03/02/24 documented as of this encounter
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
--- OUTSIDE RECORDS SUMMARY | 2024-11-22 10:50 | XMS_ITS | Encounter Summary ---
Author Organization [facility] Healthcare Address [address] [place] [address] Care Team Providers Care Railroad [employer] Name Role Phone Josué Del Valle MD PhD Unavailable [phone] Gama Lindsay DO Primary Care Provider [phone] Cal Carranza DO Unavailable [phone] Halie Khan MD Unavailable [phone] Wilfred Byrd MD Unavailable Reason for Visit * Auth/Cert Specialty Diagnoses / Procedures Referred By Contac t Referred To Contact Diagnoses Vomiting Procedures NA Referral ID Status Reason Start Date Expiration Date Visits Re quested Visits Authorized [id number] 1 1 Encounter Details Date Type Department Care Team (Latest Contact Info) Description 02/20/2024 7:35 AM CDT - 03/07/2024 2:50 PM CDT Hospital Encounter [address] [id number] Roderick Deleon MD [address] [place] [address] [address] [place] [place], [place] [id number] Pacheco Quintanilla MD [address] [place] [address] [place] [address] Corbin Cole MD [address] [place] [address] [place] [address] Diana Rivera DO [address] [place] [address] [place] [address] Gianna Dey MD [address] [place] [address] [place] [address] Dysphagia, unspecified type (Primary Dx); Food impaction of esophagus, initial encounter; 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 Never 02/20/2024 Do you belong to [...] in a senior living (including now)? No 02/20/2024 Personal Safety Answer Date Recorded Have you ever been in or are you currently in a harmful physical or emotional relationship or is someone making you feel afraid or unsafe? 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 Gender Identity Not on file Sexual Orientation Not on file documented as of this encounter Last Filed Vital Signs Vital Sign Reading Time Taken Comments Blood Pressure 132/64 03/07/2024 10:29 AM CDT Pulse 93 03/07/2024 10:29 AM CDT Temperature 38.1 ??C (100.6 ??F) 03/07/2024 10:29 AM CDT Respiratory Rate 18 03/07/2024 10:29 AM CDT Oxygen Saturation 100% 03/07/2024 10:29 AM CDT Inhaled Oxygen Concentration - - Weight 62.4 kg (137 lb 9.6 oz) 03/05/2024 5:00 A M CDT Height 180.3 cm (5' 11 ) 02/24/2024 5:25 PM CDT Body Mass Index 19.19 02/24/2024 5:25 PM CDT documented in this encounter Discharge Summaries * Gianna Dey MD - 03/07/2024 9:36 AM CDT Inpatient Discharge Summary BRIEF OVERVIEW Admitting Provider: Gee Mcdaniel MD Discharge Provider: Gianna Dey MD Primary Care Physician at Discharge: Gama Lindsay DO [phone] Admission Date: 02/20/2024 Discharge Date: 03/07/2024 Admission Location: [facility] Problems/Diagnoses: Principal Problem: Dysphagia Active Problems: Food impaction of esophagus Resolved Problems: No resolved hospital problems. DETAILS OF HOSPITAL STAY Presenting Problem/History of Present Illness: Weakness Hospital Course: HPI/Summary: 58 y/o M w/ PMHx of COPD, chronic hypoxic respiratory failure on 3 L O2, AML s/p marrow transplant, chronic lnbmj-tzvdks-rqvs disease, type 2 diabetes mellitus, and hiatal hernia who presented for food getting stuck in throat w/ inability for oral intake w/ reported vomiting. GI consulted w/ EGD pursued and notable for severe erosive esophagitis w/o bleeding and gastritis. Patient's diet was advanced slowly and tolerated. GI recommended PPI and sucralfate x8 weeks w/ planned outpatient follow-up. Hospital course complicated by incidental findings of positive blood cultures on work-up for pneumonia seen on CXR. ID consulted for recommendations and patient started on Ancef for MSSA bacteremia. TTE negative for vegetations on mitral valve w/ aortic, tricuspid, and pulmonic not well visualized. ID recommending OTIS. Cardiology asking for GI clearance to pursue OTIS. GI completed repeat EGD w/ continued mild severe esophagitis signs, recommended holding off on OTIS. ID recommend 6 weeks of Ancef. Had episode of hypoglycemia medication adjusted diet adjusted commenting that he is a brittle diabetic. plan for long course of IV abx w/ PICC ordered . All questions answered, no other new issues. #Severe Esophagitis #Gastritis #Nausea w/ Vomiting - Resolved #Dysphagia - Improving - EGD completed showing severe erosive esophagitis w/ gastritis - GI recommend PPI BID x8 weeks w/ 1 gram sucralfate QID x8 weeks, plan for repeat EGD in 3 months and follow-up in clinic in 4 weeks - patient tolerated PO diet graduation w/o issue. C/w mechanical soft diet - c/w pantoprazole 40mg BID, sucralfate - pathology biopsies notable for negative H. Pylori, active esophagitis w/ ulceration w/ negative dysplasia/malignancy, fungal organisms, or viral inclusions -reviewed CBC CMP EGD chest x-ray continue ppi follow-up with GI as outpatient Findings: Mildly severe esophagitis with no bleeding was found 35 to 45 cm from the incisors. A medium amount of solid food (residue) was found in the gastric body. The procedure was aborted. Impression: - Mildly severe esophagitis with no bleeding. - A medium amount of solid food (residue) in the stomach. Procedure aborted. - No specimens collected. Recommendation: - [facility]. - Advance diet as tolerated. - Use Protonix (pantoprazole) 40 mg PO BID for 8 weeks. - Use sucralfate suspension 1 gram PO QID for 8 weeks. - Repeat upper endoscopy in 8 weeks to check healing. - Return to GI clinic in 3 weeks. #Community Acquired Pneumonia #MSSA Bacteremia #COPD Exacerbation - Resolved #Chronic Hypoxemic Respiratory Failure - on RA this AM, baseline 3L NC reported. Remains off O2 >4 days - c/w Ancef w/ ID following, soriano-sensitive. Day 8 of appropriate coverage - TTE completed, notable for EF 55-60%, only mitral valve commented on w/ no vegetation. AV, TV, PVnot well visualized. ID recommended OTIS for further evaluation to r/o endocarditis. - GI completed repeat EGD w/ continued severe esophagitis and recommended against OTIS. ID recommend6 weeks of IV Abx for treatment. - PICC ordered for placement, patient will need home IV Abx education prior to dc, anticipate 03/02 - repeat blood cultures 02/23 finalized no growth - respiratory panel negative - on steroid taper for possible COPD exacerbation per previous provider notes. Currently on 20mg, steroid taper finishes 03/02 w/ 10mg dose - c/w Symbicort and Spiriva, Mucinex Reviewed CBC CMP blood culture continue IV antibiotics reviewed echo chest x-ray Pneumonia completed 7 days of IV cefepime patient will continue on Ancef follow- up with ID as outpatient in 1 week #Hx of AML s/p BMT #Hx of VTE - c/w Xarelto 20mg daily - continue home antiviral -continue home CellCept -continue home voriconazole -continue home tacrolimus - blood counts stable. WBC 12.4, Hgb 11.2, Plt 365. Follow CBC Q48H follow with Heme-Onc as outpatient #HLD - c/w atorvastatin 40mg daily Continue current treatment #DM - A1C: 6.7% 02/2024 - continue current treatment avoid hypoglycemia monitor Test Results Pending at Discharge: Pending Labs Order Current Status Lipid panel In process Blood culture Blood Preliminary result Blood culture Blood Arm, left Preliminary result Operative Procedures Performed: Procedure(s): ESOPHAGOGASTRODUODENOSCOPY Discharge Details Physical Exam at Discharge: Discharge Condition: fair Pulse: 84 Resp: 18 BP: 131/86 Temp: 37.1 ??C (98.8 ??F) Weight: 62.4 kg (137 lb 9.6 oz) Pertinent Exam Findings at Discharge: Alert Chest clear to auscultation bilateral Abdomen nontender nondistended CVS S1-S2 Neural moves extremities Discharge Disposition: Discharge to home, home health skilled care Code Status at Discharge: Full code Discharge Instructions: Diet Instructions Adult Discharge Diet Diet Type: Low fat intake Other (specify) Explanatory Comment: Diabetic diet Diabetic diet Continue to follow a consistent carbohydrate diet upon discharge. Avoid concentrated sweets such ascookies, cake, candy and ice cream. Also, avoid sugar-sweetened beverages such as lemonade, sweet tea, regular soda, juice and Gatorade. Eat 75 g of carbohydrates at each meal. Eat 3 meals per day and try to eat at consistent times. If interested, ask your doctor for referral to outpatient nutrition counseling. Call [facility] Dietitian's office at [phone] for questions about your diet. Additional resources available from the [employer] can be found at www.diabetes.org/nutrition Other Instructions Ambulatory referral to Home Health Service Line: Home Health and Infusion Primary disciplines requested: Detention Physical Therapy Secondary disciplines requested: Occupational Therapy Home Health Services: Therapy to Eval/Tx IV Catheter Maintenance Labs Therapy instructions: Evaluation/treatment IV Catheter Types: PICC Line Number of Lumens: 1 IV Catheter Flush Care Instructions: Evaluate and manage the IV catheter to maintain patency IV Catheter Dressing Change Instructions: Evaluate, manage, and change the dressing weekly Labs: CBC with Differential CMP CRP ESR (Sedimentation Rate) CBC frequency: Once a week CMP frequency: Once a week CRP frequency: Once a week ESR (Sedimentation Rate) frequency: Once a week Date to Start Labs: 03/09/2024 Infusion Services: IV Catheter Maintenance (Infusion) Labs (Infusion) Infusion Therapy Infusion Therapy: Antibiotic Therapy How many antibiotic therapies: 1 ABX Medication 1: ancef ABX Dose 1: 2g ABX Route 1: iv ABX Frequency 1: q8h ABX Therapy Duration 1: 26 more days Physician to follow patient's care (the person listed here will be responsible for signing ongoing orders): PCP Requested Start of Care Date: 24-48 hours I certify that, based on my findings, the following services are medically necessary skilled home health services: IV Catheter Maintenance Labs Therapy to Eval/Tx I certify that, based on my findings, the following services are medically necessary skilled home infusion services: IV Catheter Maintenance (Infusion) Labs (Infusion) I attest that I or another qualified licensed provider saw the patient 90 days prior to or 30 days post admission and this face to face encounter meets the necessary Home Health requirements. The face to face encounter occurred on (date): 03/06/2024 The encounter with the patient was in whole, or in part, for the following medical condition, whichis the primary reason for home health care. (List medical condition): mssa bactremia Clinical findings that support the need for home care: Medical condition requiring skilled assessment/education I certify that my clinical findings support patient's homebound status. Homebound criteria met because: Poor endurance Special Instructions Due to esophagus and stomach inflammation please avoid spicy food, citrus, garlic, agustina, chocolate, caffeine, alcohol. Please avoid using ibuprofen and other NSAIDs. Please take Protonix and Carafate as prescribed. For COPD exacerbation please complete steroid taper/prednisone taper as prescribed please take Protonix while on steroids to avoid gastrointestinal bleed. Please use home inhalers and cough medications as prescribed For pneumonia please complete azithromycin and cefdinir as prescribed. Special Instructions Please follow up with primary care physician, ui developer with angular js, oncologist/bone Marrow transplantteam [facility] Home Infusion will supply IV medication and supplies, if any questions [phone] [facility] Home Health will provide usp. If you are not contacted by your nurse within 24 Hours from your hospital discharge, please call [phone] Discharge Medications: Current Medications TAKE these medications acetaminophen 500 mg tablet Take 2 tablets (1,000 mg total) by mouth 2 (two) times a day as needed for pain Commonly known as: TYLENOL acyclovir 400 mg tablet Take 1 tablet (400 mg total) by mouth every 8 (eight) hours Commonly known as: ZOVIRAX albuterol HFA 90 mcg/actuation inhaler Inhale 2 puffs every 6 (six) hours as needed for wheezing Commonly known as: PROVENTIL HFA,VENTOLIN HFA,PROAIR HFA atorvastatin 40 mg tablet Take 1 tablet (40 mg total) by mouth daily Commonly known as: LIPITOR benzonatate 200 mg capsule Take 1 capsule (200 mg total) by mouth 3 (three) times a day for 15 days For: cough Commonly known as: TESSALON cholecalciferol 25 mcg (1,000 unit) tablet Take 2 tablets (2,000 Units total) by mouth every morning Commonly known as: VITAMIN D-3 cyanocobalamin 1,000 mcg tablet Take 1 tablet (1,000 mcg total) by mouth every morning Commonly known as: Vitamin B-12 diphenhydrAMINE-acetaminophen 25-500 mg tablet Take 2 tablets by mouth nightly as needed for sleep Commonly known as: TYLENOL PM FreeStyle Evaristo 2 [facility] Use to test blood glucose continuously Generic drug: flash glucose scanning reader FreeStyle Evaristo 2 Sensor kit Change sensor every 14 days Generic drug: flash glucose sensor gabapentin 300 mg capsule Take 1 capsule (300 mg total) by mouth 4 (four) times a day @[id number] Commonly known as: NEURONTIN * guaiFENesin ER 600 mg 12 hr tablet Take 1 tablet (600 mg total) by mouth 2 (two) times a day Commonly known as: MUCINEX * guaiFENesin 20 mg/mL syrup Take 5 mL (100 mg total) by mouth 3 (three) times a day as needed for cough or congestion Commonly known as: ROBITUSSIN insulin glargine 100 unit/mL (3 mL) pen for injection Inject 10 Units under the skin nightly Commonly known as: LANTUS, BASAGLAR, SEMGLEE insulin lispro 100 unit/mL pen for injection Inject 5-10 Units under the skin 3 (three) times a day before meals INJECT 5-10 UNITS TID WITH MEALS PLUS SLIDING SCALE. TDD OF 35 UNITS. Commonly known as: HumaLOG, ADMELOG montelukast 10 mg tablet Take 1 tablet [...] Stress Ulcer Prophylaxis Commonly known as: PROTONIX rivaroxaban 20 mg tablet Take 1 tablet (20 mg total) by mouth daily with breakfast Commonly known as: XARELTO sucralfate 100 mg/mL suspension Take 10 mL (1 g total) by mouth 4 (four) times a day (with meals and nightly) for 240 doses Commonly known as: CARAFATE tacrolimus 0.5 mg immediate-release capsule Take 1 capsule (0.5 mg total) by mouth every other day Trelegy Ellipta 200-62.5-25 mcg inhaler Inhale 1 puff daily Generic drug: uwzdzxaqpts-mtlxdipvc-zcljtirm voriCONAZOLE 200 mg tablet Take 1 tablet (200 mg total) by mouth 2 (two) times a day @9am & 5pm Commonly known as: VFEND * This list has 2 medication(s) that are the same as other medications prescribed for you. Read the directions carefully, and ask your doctor or other care provider to review them with you. Outpatient Follow-Up: Contact Information for Follow-ups Gama Lindsay DO Specialty: Internal Medicine [address] [place] [address] [address] [place] [id number] Next Steps: Follow up Comments: Follow up with established provider: 1 week Questions: To provider: GAMA LINDSAY Anuj, MD Specialty: Gastroenterology, Internal Medicine Relationship: Consulting Physician [address] [facility] [address] [facility] [address] Next Steps: Call in 3 day(s) Comments: Follow up with established provider: 4 weeks for clinic follow up and 8 weeks to repeat endoscopy to evaluate healing on medications. Questions: To provider: WILFRED BYRD Omer M., MD Specialty: Infectious Diseases, Internal Medicine [address] [facility] [address] [facility] [address] Next Steps: Call in 3 day(s) 35 minute was spent on discharge today * Gianna Dey MD - 03/03/2024 10:40 AM CDT Inpatient Discharge Summary BRIEF OVERVIEW Admitting Provider: Gee Mcdaniel MD Discharge Provider: Gianna Dey MD Primary Care Physician at Discharge: Gama Lindsay, Admission Date: 02/20/2024 Discharge Date: 03/03/2024 Admission Location: [facility] Problems/Diagnoses: Principal Problem: Dysphagia Active Problems: Food impaction of esophagus Resolved Problems: No resolved hospital problems. DETAILS OF HOSPITAL STAY Presenting Problem/History of Present Illness: Weakness Hospital Course: HPI/Summary: 58 y/o M w/ PMHx of COPD, chronic hypoxic respiratory failure on 3 L O2, AML s/p marrow transplant, chronic pzacs-zjkyhh-fona disease, type 2 diabetes mellitus, and hiatal hernia who presented for food getting stuck in throat w/ inability for oral intake w/ reported vomiting. GI consulted w/ EGD pursued and notable for severe erosive esophagitis w/o bleeding and gastritis. Patient's diet was advanced slowly and tolerated. GI recommended PPI and sucralfate x8 weeks w/ planned outpatient follow-up. Hospital course complicated by incidental findings of positive blood cultures on work-up for pneumonia seen on CXR. ID consulted for recommendations and patient started on Ancef for MSSA bacteremia. TTE negative for vegetations on mitral valve w/ aortic, tricuspid, and pulmonic not well visualized. ID recommending OTIS. Cardiology asking for GI clearance to pursue OTIS. GI completed repeat EGD w/ continued mild severe esophagitis signs, recommended holding off on OTIS. ID recommend 6 weeks of Ancef. Had episode of hypoglycemia medication adjusted diet adjusted commenting that he is a brittle diabetic. plan for long course of IV abx w/ PICC ordered . All questions answered, no other new issues. Patient will need home IV abx education prior to dc. Anticipate d/c 03/02. #Severe Esophagitis #Gastritis #Nausea w/ Vomiting - Resolved #Dysphagia - Improving - EGD completed showing severe erosive esophagitis w/ gastritis - GI recommend PPI BID x8 weeks w/ 1 gram sucralfate QID x8 weeks, plan for repeat EGD in 3 months and follow-up in clinic in 4 weeks - patient tolerated PO diet graduation w/o issue. C/w mechanical soft diet - c/w pantoprazole 40mg BID, sucralfate - pathology biopsies notable for negative H. Pylori, active esophagitis w/ ulceration w/ negative dysplasia/malignancy, fungal organisms, or viral inclusions -reviewed CBC CMP EGD chest x-ray continue ppi follow-up with GI as outpatient Findings: Mildly severe esophagitis with no bleeding was found 35 to 45 cm from the incisors. A medium amount of solid food (residue) was found in the gastric body. The procedure was aborted. Impression: - Mildly severe esophagitis with no bleeding. - A medium amount of solid food (residue) in the stomach. Procedure aborted. - No specimens collected. Recommendation: - [facility]. - Advance diet as tolerated. - Use Protonix (pantoprazole) 40 mg PO BID for 8 weeks. - Use sucralfate suspension 1 gram PO QID for 8 weeks. - Repeat upper endoscopy in 8 weeks to check healing. - Return to GI clinic in 3 weeks. #Community Acquired Pneumonia #MSSA Bacteremia #COPD Exacerbation - Resolved #Chronic Hypoxemic Respiratory Failure - on RA this AM, baseline 3L NC reported. Remains off O2 >4 days - c/w Ancef w/ ID following, soriano-sensitive. Day 8 of appropriate coverage - TTE completed, notable for EF 55-60%, only mitral valve commented on w/ no vegetation. AV, TV, PVnot well visualized. ID recommended OTIS for further evaluation to r/o endocarditis. - GI completed repeat EGD w/ continued severe esophagitis and recommended against OTIS. ID recommend6 weeks of IV Abx for treatment. - PICC ordered for placement, patient will need home IV Abx education prior to dc, anticipate 03/02 - repeat blood cultures 02/23 finalized no growth - respiratory panel negative - on steroid taper for possible COPD exacerbation per previous provider notes. Currently on 20mg, steroid taper finishes 03/02 w/ 10mg dose - c/w Symbicort and Spiriva, Mucinex Reviewed CBC CMP blood culture continue IV antibiotics reviewed echo chest x-ray #Hx of AML s/p BMT #Hx of VTE - c/w Xarelto 20mg daily - continue home antiviral -continue home CellCept -continue home voriconazole -continue home tacrolimus - blood counts stable. WBC 12.4, Hgb 11.2, Plt 365. Follow CBC Q48H follow with Heme-Onc as outpatient #HLD - c/w atorvastatin 40mg daily Continue current treatment #DM - A1C: 6.7% 02/2024 - continue current treatment avoid hypoglycemia monitor Test Results Pending at Discharge: Pending Labs Order Current Status Lipid panel In process Operative Procedures Performed: Procedure(s): ESOPHAGOGASTRODUODENOSCOPY Discharge Details Physical Exam at Discharge: Discharge Condition: fair Pulse: 78 Resp: 20 BP: 138/84 Temp: 36.5 ??C (97.7 ??F) Weight: 62.1 kg (136 lb 14.5 oz) Pertinent Exam Findings at Discharge: Alert Chest clear to auscultation bilateral Abdomen nontender nondistended CVS S1-S2 Neural moves extremities Discharge Disposition: Discharge to home, home health skilled care Code Status at Discharge: Full code Discharge Instructions: Diet Instructions Adult Discharge Diet Diet Type: Low fat intake Other (specify) Explanatory Comment: Diabetic diet Diabetic diet Continue to follow a consistent carbohydrate diet upon discharge. Avoid concentrated sweets such ascookies, cake, candy and ice cream. Also, avoid sugar-sweetened beverages such as lemonade, sweet tea, regular soda, juice and Gatorade. Eat 75 g of carbohydrates at each meal. Eat 3 meals per day and try to eat at consistent times. If interested, ask your doctor for referral to outpatient nutrition counseling. Call [facility] Dietitian's office at [phone] for questions about your diet. Additional resources available from the [place] [employer] can be found at www.diabetes.org/nutrition Other Instructions Special Instructions Due to esophagus and stomach inflammation please avoid spicy food, citrus, garlic, agustina, chocolate, caffeine, alcohol. Please avoid using ibuprofen and other NSAIDs. Please take Protonix and Carafate as prescribed. For COPD exacerbation please complete steroid taper/prednisone taper as prescribed please take Protonix while on steroids to avoid gastrointestinal bleed. Please use home inhalers and cough medications as prescribed For pneumonia please complete azithromycin and cefdinir as prescribed. Special Instructions Please follow up with primary care physician, ui developer with angular js, oncologist/bone Marrow transplantteam [facility] Home Infusion will supply IV medication and supplies, if any questions [phone] [facility] Home Health will provide usp. If you are not contacted by your nurse within 24 Hours from your hospital discharge, please call [phone] Discharge Medications: Current Medications TAKE these medications acetaminophen 500 mg tablet Take 2 tablets (1,000 mg total) by mouth 2 (two) times a day as needed for pain Commonly known as: TYLENOL acyclovir 400 mg tablet Take 1 tablet (400 mg total) by mouth every 8 (eight) hours Commonly known as: ZOVIRAX albuterol HFA 90 mcg/actuation inhaler Inhale 2 puffs every 6 (six) hours as needed for wheezing Commonly known as: PROVENTIL HFA,VENTOLIN HFA,PROAIR HFA atorvastatin 40 mg tablet Take 1 tablet (40 mg total) by mouth daily Commonly known as: LIPITOR azithromycin 500 mg tablet Take 1 tablet (500 mg total) by mouth daily for 1 day Commonly known as: ZITHROMAX benzonatate 200 mg capsule Take 1 capsule (200 mg total) by mouth 3 (three) times a day for 15 days For: cough Commonly known as: TESSALON cefdinir 300 mg capsule Take 1 capsule (300 mg total) by mouth 2 (two) times a day for 3 days Commonly known as: OMNICEF cholecalciferol 25 mcg (1,000 unit) tablet Take 2 tablets (2,000 Units total) by mouth every morning Commonly known as: VITAMIN D-3 cyanocobalamin 1,000 mcg tablet Take 1 tablet (1,000 mcg total) by mouth every morning Commonly known as: Vitamin B-12 diphenhydrAMINE-acetaminophen 25-500 mg tablet Take 2 tablets by mouth nightly as needed for sleep Commonly known as: TYLENOL PM FreeStyle Evaristo 2 Squire misc Use to test blood glucose continuously Generic drug: flash glucose scanning reader FreeStyle Evaristo 2 Sensor kit Change sensor every 14 days Generic drug: flash glucose sensor gabapentin 300 mg capsule Take 1 capsule (300 mg total) by mouth 4 (four) times a day @[id number]-9PM Commonly known as: NEURONTIN * guaiFENesin ER 600 mg 12 hr tablet Take 1 tablet (600 mg total) by mouth 2 (two) times a day Commonly known as: MUCINEX * guaiFENesin 20 mg/mL syrup Take 5 mL (100 mg total) by mouth 3 (three) times a day as needed for cough or congestion Commonly known as: ROBITUSSIN insulin glargine 100 unit/mL (3 mL) pen for injection Inject 10 Units under the skin nightly Commonly known as: LANTUS, BASAGLAR, SEMGLEE insulin lispro 100 unit/mL pen for injection Inject 5-10 Units under the skin 3 (three) times a day before meals INJECT 5-10 UNITS TID WITH MEALS PLUS SLIDING SCALE. TDD OF 35 UNITS. Commonly known as: HumaLOG, ADMELOG montelukast 10 mg tablet Take 1 tablet [...] Stress Ulcer Prophylaxis Commonly known as: PROTONIX rivaroxaban 20 mg tablet Take 1 tablet (20 mg total) by mouth daily with breakfast Commonly known as: XARELTO sucralfate 100 mg/mL suspension Take 10 mL (1 g total) by mouth 4 (four) times a day (with meals and nightly) for 240 doses Commonly known as: CARAFATE tacrolimus 0.5 mg immediate-release capsule Take 1 capsule (0.5 mg total) by mouth every other day Trelegy Ellipta 200-62.5-25 mcg inhaler Inhale 1 puff daily Generic drug: hwqtmdpskrl-ktbuyqgsz-pjjvdntz voriCONAZOLE 200 mg tablet Take 1 tablet (200 mg total) by mouth 2 (two) times a day @9am & 5pm Commonly known as: VFEND * This list has 2 medication(s) that are the same as other medications prescribed for you. Read the directions carefully, and ask your doctor or other care provider to review them with you. Outpatient Follow-Up: Contact Information for Follow-ups aGma Lindsay DO Specialty: Internal Medicine [address] [place] [address] [address] [facility] [id number] Next Steps: Follow up Comments: Follow up with established provider: 1 week Questions: To provider: GAMA LINDSAY Anuj, MD Specialty: Gastroenterology, Internal Medicine Relationship: Consulting Physician [address] [place] [address] [address] [place] [id number] Next Steps: Follow up Comments: Follow up with established provider: 4 weeks for clinic follow up and 8 weeks to repeat endoscopy to evaluate healing on medications. Questions: To provider: WILFRED BYRD Omer M., MD Specialty: Infectious Diseases, Internal Medicine [address] [facility] [address] [facility] [address] Next Steps: Call in 3 day(s) * Gianna Dey MD - 03/02/2024 11:05 AM CDT Inpatient Discharge Summary BRIEF OVERVIEW Admitting Provider: Gee Mcdaniel MD Discharge Provider: Gianna Dey MD Primary Care Physician at Discharge: Gama Lindsay, Admission Date: 02/20/2024 Discharge Date: 03/02/2024 Admission Location: [facility] Problems/Diagnoses: Principal Problem: Dysphagia Active Problems: Food impaction of esophagus Resolved Problems: No resolved hospital problems. DETAILS OF HOSPITAL STAY Presenting Problem/History of Present Illness: Weakness Hospital Course: HPI/Summary: 58 y/o M w/ PMHx of COPD, chronic hypoxic respiratory failure on 3 L O2, AML s/p marrow transplant, chronic zrtpl-otpvnl-blca disease, type 2 diabetes mellitus, and hiatal hernia who presented for food getting stuck in throat w/ inability for oral intake w/ reported vomiting. GI consulted w/ EGD pursued and notable for severe erosive esophagitis w/o bleeding and gastritis. Patient's diet was advanced slowly and tolerated. GI recommended PPI and sucralfate x8 weeks w/ planned outpatient follow-up. Hospital course complicated by incidental findings of positive blood cultures on work-up for pneumonia seen on CXR. ID consulted for recommendations and patient started on Ancef for MSSA bacteremia. TTE negative for vegetations on mitral valve w/ aortic, tricuspid, and pulmonic not well visualized. ID recommending OTIS. Cardiology asking for GI clearance to pursue OTIS. GI completed repeat EGD w/ continued mild severe esophagitis signs, recommended holding off on OTIS. ID recommend 6 weeks of Ancef. Had episode of hypoglycemia medication adjusted diet adjusted commenting that he is a brittle diabetic. plan for long course of IV abx w/ PICC ordered . All questions answered, no other new issues. Patient will need home IV abx education prior to dc. Anticipate d/c 03/02. #Severe Esophagitis #Gastritis #Nausea w/ Vomiting - Resolved #Dysphagia - Improving - EGD completed showing severe erosive esophagitis w/ gastritis - GI recommend PPI BID x8 weeks w/ 1 gram sucralfate QID x8 weeks, plan for repeat EGD in 3 months and follow-up in clinic in 4 weeks - patient tolerated PO diet graduation w/o issue. C/w mechanical soft diet - c/w pantoprazole 40mg BID, sucralfate - pathology biopsies notable for negative H. Pylori, active esophagitis w/ ulceration w/ negative dysplasia/malignancy, fungal organisms, or viral inclusions -reviewed CBC CMP EGD chest x-ray continue ppi follow-up with GI as outpatient Findings: Mildly severe esophagitis with no bleeding was found 35 to 45 cm from the incisors. A medium amount of solid food (residue) was found in the gastric body. The procedure was aborted. Impression: - Mildly severe esophagitis with no bleeding. - A medium amount of solid food (residue) in the stomach. Procedure aborted. - No specimens collected. Recommendation: - Return patient to [facility] for ongoing care. - Advance diet as tolerated. - Use Protonix (pantoprazole) 40 mg PO BID for 8 weeks. - Use sucralfate suspension 1 gram PO QID for 8 weeks. - Repeat upper endoscopy in 8 weeks to check healing. - Return to GI clinic in 3 weeks. #Community Acquired Pneumonia #MSSA Bacteremia #COPD Exacerbation - Resolved #Chronic Hypoxemic Respiratory Failure - on RA this AM, baseline 3L NC reported. Remains off O2 >4 days - c/w Ancef w/ ID following, soriano-sensitive. Day 8 of appropriate coverage - TTE completed, notable for EF 55-60%, only mitral valve commented on w/ no vegetation. AV, TV, PVnot well visualized. ID recommended OTIS for further evaluation to r/o endocarditis. - GI completed repeat EGD w/ continued severe esophagitis and recommended against OTIS. ID recommend6 weeks of IV Abx for treatment. - PICC ordered for placement, patient will need home IV Abx education prior to dc, anticipate 03/02 - repeat blood cultures 02/23 finalized no growth - respiratory panel negative - on steroid taper for possible COPD exacerbation per previous provider notes. Currently on 20mg, steroid taper finishes 03/02 w/ 10mg dose - c/w Symbicort and Spiriva, Mucinex Reviewed CBC CMP blood culture continue IV antibiotics reviewed echo chest x-ray #Hx of AML s/p BMT #Hx of VTE - c/w Xarelto 20mg daily - continue home antiviral -continue home CellCept -continue home voriconazole -continue home tacrolimus - blood counts stable. WBC 12.4, Hgb 11.2, Plt 365. Follow CBC Q48H follow with Heme-Onc as outpatient #HLD - c/w atorvastatin 40mg daily Continue current treatment #DM - A1C: 6.7% 02/2024 - continue current treatment avoid hypoglycemia monitor Test Results Pending at Discharge: Pending Labs Order Current Status Lipid panel In process Operative Procedures Performed: Procedure(s): ESOPHAGOGASTRODUODENOSCOPY Discharge Details Physical Exam at Discharge: Discharge Condition: fair Pulse: 84 Resp: 18 BP: 111/68 Temp: 36.5 ??C (97.7 ??F) Weight: 62.1 kg (136 lb 14.5 oz) Pertinent Exam Findings at Discharge: Alert Chest clear to auscultation bilateral Abdomen nontender nondistended CVS S1-S2 Neural moves extremities Discharge Disposition: Discharge to home, home health skilled care Code Status at Discharge: Full code Discharge Instructions: Diet Instructions Adult Discharge Diet Diet Type: Low fat intake Other (specify) Explanatory Comment: Diabetic diet Diabetic diet Continue to follow a consistent carbohydrate diet upon discharge. Avoid concentrated sweets such ascookies, cake, candy and ice cream. Also, avoid sugar-sweetened beverages such as lemonade, sweet tea, regular soda, juice and Gatorade. Eat 75 g of carbohydrates at each meal. Eat 3 meals per day and try to eat at consistent times. If interested, ask your doctor for referral to outpatient nutrition counseling. Call [facility] Dietitian's office at [phone] for questions about your diet. Additional resources available from the [place] [employer] can be found at www.diabetes.org/nutrition Other Instructions Special Instructions Due to esophagus and stomach inflammation please avoid spicy food, citrus, garlic, agustina, chocolate, caffeine, alcohol. Please avoid using ibuprofen and other NSAIDs. Please take Protonix and Carafate as prescribed. For COPD exacerbation please complete steroid taper/prednisone taper as prescribed please take Protonix while on steroids to avoid gastrointestinal bleed. Please use home inhalers and cough medications as prescribed For pneumonia please complete azithromycin and cefdinir as prescribed. Special Instructions Please follow up with primary care physician, ui developer with angular js, oncologist/bone Marrow transplantteam [facility] Home Infusion will supply IV medication and supplies, if any questions [phone] [facility] will provide usp. If you are not contacted by your nurse within 24 Hours from your hospital discharge, please call [phone] Discharge Medications: Current Medications TAKE these medications acetaminophen 500 mg tablet Take 2 tablets (1,000 mg total) by mouth 2 (two) times a day as needed for pain Commonly known as: TYLENOL acyclovir 400 mg tablet Take 1 tablet (400 mg total) by mouth every 8 (eight) hours Commonly known as: ZOVIRAX albuterol HFA 90 mcg/actuation inhaler Inhale 2 puffs every 6 (six) hours as needed for wheezing Commonly known as: PROVENTIL HFA,VENTOLIN HFA,PROAIR HFA atorvastatin 40 mg tablet Take 1 tablet (40 mg total) by mouth daily Commonly known as: LIPITOR azithromycin 500 mg tablet Take 1 tablet (500 mg total) by mouth daily for 1 day Commonly known as: ZITHROMAX benzonatate 200 mg capsule Take 1 capsule (200 mg total) by mouth 3 (three) times a day for 15 days For: cough Commonly known as: TESSALON cefdinir 300 mg capsule Take 1 capsule (300 mg total) by mouth 2 (two) times a day for 3 days Commonly known as: OMNICEF cholecalciferol 25 mcg (1,000 unit) tablet Take 2 tablets (2,000 Units total) by mouth every morning Commonly known as: VITAMIN D-3 cyanocobalamin 1,000 mcg tablet Take 1 tablet (1,000 mcg total) by mouth every morning Commonly known as: Vitamin B-12 diphenhydrAMINE-acetaminophen 25-500 mg tablet Take 2 tablets by mouth nightly as needed for sleep Commonly known as: TYLENOL PM FreeStyle Evaristo 2 [facility] Use to test blood glucose continuously Generic drug: flash glucose scanning reader FreeStyle Evaristo 2 Sensor kit Change sensor every 14 days Generic drug: flash glucose sensor gabapentin 300 mg capsule Take 1 capsule (300 mg total) by mouth 4 (four) times a day @[id number]-9PM Commonly known as: NEURONTIN * guaiFENesin ER 600 mg 12 hr tablet Take 1 tablet (600 mg total) by mouth 2 (two) times a day Commonly known as: MUCINEX * guaiFENesin 20 mg/mL syrup Take 5 mL (100 mg total) by mouth 3 (three) times a day as needed for cough or congestion Commonly known as: ROBITUSSIN insulin glargine 100 unit/mL (3 mL) pen for injection Inject 10 Units under the skin nightly Commonly known as: LANTUS, BASAGLAR, SEMGLEE insulin lispro 100 unit/mL pen for injection Inject 5-10 Units under the skin 3 (three) times a day before meals INJECT 5-10 UNITS TID WITH MEALS PLUS SLIDING SCALE. TDD OF 35 UNITS. Commonly known as: HumaLOG, ADMELOG montelukast 10 mg tablet Take 1 tablet [...] Stress Ulcer Prophylaxis Commonly known as: PROTONIX rivaroxaban 20 mg tablet Take 1 tablet (20 mg total) by mouth daily with breakfast Commonly known as: XARELTO sucralfate 100 mg/mL suspension Take 10 mL (1 g total) by mouth 4 (four) times a day (with meals and nightly) for 240 doses Commonly known as: CARAFATE tacrolimus 0.5 mg immediate-release capsule Take 1 capsule (0.5 mg total) by mouth every other day Trelegy Ellipta 200-62.5-25 mcg inhaler Inhale 1 puff daily Generic drug: udwaxldwafi-rzifzirex-qrlbswyj voriCONAZOLE 200 mg tablet Take 1 tablet (200 mg total) by mouth 2 (two) times a day @9am & 5pm Commonly known as: VFEND * This list has 2 medication(s) that are the same as other medications prescribed for you. Read the directions carefully, and ask your doctor or other care provider to review them with you. Outpatient Follow-Up: Contact Information for Follow-ups Gama Lindsay DO Specialty: Internal Medicine [address] [place] [address] [address] [facility] [address] Next Steps: Follow up Comments: Follow up with established provider: 1 week Questions: To provider: GAMA LINDSAY Anuj, MD Specialty: Gastroenterology, Internal Medicine Relationship: Consulting Physician [address] [place] [address] [address] [facility] [address] Next Steps: Follow up Comments: Follow up with established provider: 4 weeks for clinic follow up and 8 weeks to repeat endoscopy to evaluate healing on medications. Questions: To provider: WILFRED BYRD documented in this encounter Discharge Instructions * Discharge Instructions* Ethel De Jesus RN - 03/07/2024 1:40 PM CDT YOU WILL NEED A REPEAT OTIS. SPEAK WITH YOUR PRIMARY CARE PHYSICIAN TO GET THIS SCHEDULED. * Discharge Instr - Diet* Gini Gaming RD - 02/21/2024 11:06 AM CDT Continue to follow a consistent carbohydrate diet upon discharge. Avoid concentrated sweets such ascookies, cake, candy and ice cream. Also, avoid sugar-sweetened beverages such as lemonade, sweet tea, regular soda, juice and Gatorade. Eat 75 g of carbohydrates at each meal. Eat 3 meals per day and try to eat at consistent times. If interested, ask your doctor for referral to outpatient nutrition counseling. Call [facility] Dietitian's office at [phone] for questions about your diet. Additional resources available from the [place] [employer] can be found at www.diabetes.org/nutrition * Discharge Instr - Other Orders* Arleen Lagos RN - 02/28/2024 1:34 PM CDT [facility] Home Infusion will supply IV medication and supplies, if any questions [phone] [facility] Home Health will provide usp. If you are not contacted by your nurse within 24 Hours from your hospital discharge, please call [phone] * Attachments The following attachments cannot be sent through Care Everywhere. * Upper Endoscopy (General Information) (Eritrean) * Pneumonia (General Information) (Eritrean) * Transesophageal Echocardiogram (General Information) (Eritrean) * PICC (Peripherally Inserted Central Catheter) (General Information) (Eritrean) documented in this encounter Medications at Time of Discharge cholecalciferol (VITAMIN D-3) 25 mcg (1,000 unit) tablet Take 2 tablets (2,000 Units total) by mouth every morning 11/13/20 21 cyanocobalamin (Vitamin B-12) 1,000 mcg tablet Take 1 tablet (1,000 mcg total) by mouth every morning 01/31/20 24 flash glucose scanning reader (Goal ZeroStyle Evaristo 2 Squire) [facility] Use to test blood glucose continuously 1 each 1 03/17/20 23 flash glucose sensor (FreeStyle Evaristo 2 Sensor) kitIndications:Type 2 diabetes mellitus with hyperosmolarity 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, with long-term current use of insulin ([facility]) Change sensor every 14 days 2 kit 02/10/20 24 guaiFENesin ER (MUCINEX) 600 mg 12 hr tablet Take 1 tablet (600 mg total) by mouth 2 (two) times a day omega-3 fatty acids (LOVAZA) 1 gram capsule Take 1 capsule (1 g total) by mouth daily 02/10/20 21 oxygen Administer 2 L/min into each nostril nightly Nightly and PRN benzonatate (TESSALON) 200 mg capsuleIndications:Cough Take 1 capsule (200 mg total) by mouth 3 (three) times a day for 15 days 45 capsule 03/02/20 24 024 acetaminophen (TYLENOL) 500 mg tablet Take 2 tablets (1,000 mg total) by mouth 2 (two) times a day as needed for pain 024 acyclovir (ZOVIRAX) 400 mg tablet Take 1 tablet (400 mg total) by mouth every 8 (eight) hours 024 albuterol HFA (PROVENTIL HFA,VENTOLIN HFA,PROAIR HFA) 90 mcg/actuation inhalerIndications:Chron ic obstructive pulmonary disease, unspecified COPD type ([facility]) Inhale 2 puffs every 6 (six) hours as needed for wheezing 6.7 g 3 01/15/20 24 024 atorvastatin (LIPITOR) 40 mg tabletIndications: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),Type 2 diabetes mellitus with hyperglycemia, with long-term current use of insulin (HCC),Bhuly-xybvjc-jrlx disease (HCC),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HCC),Pure hypercholesterolemia Take 1 tablet (40 mg total) by mouth daily 30 tablet 6 01/15/20 20 024 ceFAZolin (ANCEF) 2,000 mg/50 mL IVPB Infuse 50 mL (2 g total) into a venous catheter every 8 (eight) hours for 26 days 3900 mL 03/07/20 24 024 diphenhydrAMINE-acetamin ophen (TYLENOL PM) 25-500 mg tablet Take 2 tablets by mouth nightly as needed for sleep 024 ldssbhiical-gvzspsevc-ow lanter (Trelegy Ellipta) 200-62.5-25 mcg inhaler Inhale 1 puff daily 024 gabapentin (NEURONTIN) 300 mg capsule Take 1 capsule (300 mg total) by mouth 4 (four) times a day @[id number]-9PM 024 guaiFENesin (ROBITUSSIN) syrup 100 mg/5 mL Take 5 mL (100 mg total) by mouth 3 (three) times a day as needed for cough or congestion 024 insulin glargine 100 unit/mL (3 mL) pen for injection Inject 10 Units under the skin nightly 024 insulin lispro (HumaLOG, ADMELOG) 100 unit/mL pen for injection Inject 5-10 Units under the skin 3 (three) times a day before meals INJECT 5-10 UNITS TID WITH MEALS PLUS SLIDING SCALE. TDD OF 35 UNITS. 024 montelukast (SINGULAIR) 10 mg tablet Take [...] doses 60 tablet 1 03/02/20 24 024 rivaroxaban (XARELTO) 20 mg tablet Take 1 tablet (20 mg total) by mouth daily with breakfast 024 sucralfate (CARAFATE) suspension 1 gram/10 mL Take 10 mL (1 g total) by mouth 4 (four) times a day (with meals and nightly) for 240 doses 1200 mL 1 03/02/20 24 024 tacrolimus 0.5 mg immediate-release capsule Take 1 capsule (0.5 mg total) by mouth every other day 024 voriCONAZOLE (VFEND) 200 mg tablet Take 1 tablet (200 mg total) by mouth 2 (two) times a day @9am & 5pm 024 documented as of this encounter Ordered Prescriptions Prescription Sig Dispense Quantity Refills Last Filled Start Date End Date ceFAZolin (ANCEF) 2,000 mg/50 mL IVPB Infuse 50 mL (2 g total) into a venous catheter every 8 (eight) hours for 26 days 3900 mL 03/07/2024 4 rivaroxaban (Xarelto) 20 mg tabletIndications: 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) PCP to address as outpatient 03/02/2024 4 sucralfate (CARAFATE) suspension 1 gram/10 mL Take 10 mL (1 g total) by mouth 4 (four) times a day (with meals and nightly) for 240 doses 1200 mL 1 03/02/[address] (PROTONIX) 40 mg EC tabletIndications: Stress Ulcer Prophylaxis Take 1 tablet (40 mg total) by mouth 2 (two) times a day for 120 doses 60 tablet 1 03/02/2024 4 nicotine (NICODERM CQ) [address] 1 patch on the skin daily 30 patch 1 03/02/2024 5 cefdinir (OMNICEF) 300 mg capsule Take 1 capsule (300 mg total) by mouth 2 (two) times a day for 3 days 6 capsule 03/02/2024 4 benzonatate (TESSALON) 200 mg capsuleIndications :Cough Take 1 capsule (200 mg total) by mouth 3 (three) times a day for 15 days 45 capsule 03/02/2024 4 azithromycin (ZITHROMAX) 500 mg tablet Take 1 tablet (500 mg total) by mouth daily for 1 day 1 tablet 03/02/2024 4 documented in this encounter Discharge Disposition Disposition Code Departure Means Destination Comment s Discharge to home, home health skilled care documented in this encounter Progress Notes * Arleen Lagos RN - 03/07/2024 11:41 AM CDT Illness Severity/Patient Summary [ ] Following MD: Osmar Orta MD [ ] Diagnosis: community acquired pneumonia [ ] Covid +: No [ ] Anticipated DC: 03/07/21 [ ] Anticipated SOC: 03/08/24 [ ] Medication: Ancef 2GM IV Q8hrs [ ] Delivery to home or room: home [ ] couples therapist: No Action Items/To Do [ ] Infusion Agency: [facility] [ ] [facility] Following Pharmacist: [facility] [ ] Home Health Agency (phone/fax) [facility] [phone] [ ] Type of line/Active LDAs/Wounds and ORDERS: SL PICC [ ] Caregiver (name/phone #): Lissy Kaiser (friend) [phone] [ ] Patient Interview: Yes [ ] Patient education: Yes [ ] Admin method taught: IV Push Situational Awareness/Contingency Planning Arleen Lagos [ ] Delivery Address: [address] [place] [address] [ ] Benefits: Eff 11-18-23 [facility] medicare Ded $0 plan pays 100%, OOP $8,850(not met) and once met, planpays 100%, unltd life max, SNV/auth req. Eff 02-28-24 IDPA and active. ancef 2g Q8 $1.55 copay for a7 day dispense [ ] Concerns: No * Gianna Dey MD - 03/06/2024 10:33 AM CDT General Medicine Daily Progress Subjective Interval History: Patient seen and examined Cough and shortness breath has improved I discussed with infectious disease Plan for discharge in a.m. Patient denies chest pain fever or chills I am seeing the patient for sepsis Objective Vitals: 24hr Min/Max: Temp Min: 36.4 ??C (97.5 ??F) Max: 38 ??C (100.4 ??F) Pulse Min: 66 Max: 101 BP Min: 107/72 Max: 127/66 Resp Min: 18 Max: 20 SpO2 Min: 97 % Max: 100 % Most Recent : Vitals: 03/05/24 1918 03/05/24 2351 03/06/24 0413 03/06/24 0730 BP: 114/62 127/66 118/75 107/72 BP Location: Left arm Left arm Left arm Patient Position: Lying Sitting Lying Pulse: 101 82 66 73 Resp: 18 18 20 18 Temp: (!) 38 ??C (100.4 ??F) 36.8 ??C (98.2 ??F) 36.4 ??C (97.5 ??F) 36.4 ??C (97.5 ??F) TempSrc: Oral Oral Oral SpO2: 99% 98% 98% 97% Weight: Height: Physical Exam: Alert Chest clear to auscultation bilateral Abdomen nontender nondistended CVS S1-S2 Neural moves extremities Lab/Radiology/Diagnostic Review: Lab Results Component Value Date WBC 13.2 (H) 03/06/2024 HGB 10.7 (L) 03/06/2024 HCT 31.9 (L) 03/06/2024 MCV 106.0 (H) 03/06/2024 LABPLAT 237 03/06/2024 Chemistry Lab Results Component Value Date SODIUM 136 03/06/2024 POTASSIUM 4.7 03/06/2024 CHLORIDE 101 03/06/2024 CO2 27 03/06/2024 ANIONGAP 8 03/06/2024 BUNSER 23 03/06/2024 CREATININE 0.94 03/06/2024 GLUCOSE 194 03/06/2024 URICACID 5.2 02/13/2022 CALCIUM 8.6 03/06/2024 BILITOT 0.3 03/05/2024 PROTEIN 7.2 12/14/2016 ALBUMIN 3.3 (L) 03/05/2024 GFRNAA >90 03/06/2024 GFRAA 94 04/05/2016 ALKPHOS 148 (H) 03/05/2024 AST 64 (H) 03/05/2024 ALT 36 03/05/2024 PHOS 3.7 02/14/2022 MAGNESIUM 2.1 02/21/2024 Recent Labs Lab Units 03/06/24 0505 03/05/24 0749 03/04/24 0511 WBC K/cumm 13.2* 14.0* 17.0* HEMOGLOBIN g/dL 10.7* 11.8* 12.0* HEMATOCRIT % 31.9* 35.7* 35.6* PLATELETS K/cumm 237 281 321 . Recent Labs Lab Units 03/06/24 0815 03/06/24 0411 03/06/24 0141 03/06/24 0016 03/05/24 1110 03/05/24 0749 03/04/24 0742 03/04/24 0511 03/03/24 0430 03/03/24 0423 SODIUM mmol/L -- -- -- 136 -- 136 -- 136 < > 138 POTASSIUM PLASMA mmol/L -- -- -- 4.7 -- 4.3 -- 5.4* < > 4.5 CHLORIDE mmol/L -- -- -- 101 -- 101 -- 98 < > 102 CO2 mmol/L -- -- -- 27 -- 27 -- 29 < > 25 CREATININE mg/dL -- -- -- 0.94 -- 0.98 -- 0.96 < > 0.82 GLUCOSE mg/dL -- -- -- 182 -- 93 -- 145 < > 53* POC GLUCOSE MONITOR mg/dL 194 267* 286* -- < > -- < > -- < > -- CALCIUM mg/dL -- -- -- 8.6 -- 8.9 -- 9.2 < > 9.0 ALBUMIN g/dL -- -- -- -- -- 3.3* -- 3.6 -- 3.6 < > = values in this interval not displayed. Scheduled Meds:acyclovir, 400 mg, oral, TID albuterol HFA, 2 puff, inhalation, Q6H While awake (RT) atorvastatin, 40 mg, oral, Daily benzonatate, 200 mg, oral, TID budesonide-formoteroL, 2 puff, inhalation, BID (RT) And tiotropium bromide, 2 puff, inhalation, Daily (RT) cefepime, 1,000 mg, intravenous, Q6H ROSA MARIA gabapentin, 300 mg, oral, QID guaiFENesin ER, 1,200 mg, oral, BID insulin glargine, 12 Units, subcutaneous, Nightly insulin lispro, 0-4 Units, subcutaneous, Nightly insulin lispro, 0-5 Units, subcutaneous, TID with meals montelukast, 10 mg, oral, Nightly mycophenolate mofetil, 1,000 mg, oral, BID nicotine, 1 patch, transdermal, Daily pantoprazole DR, 40 mg, oral, BID rivaroxaban, 20 mg, oral, Daily with breakfast sodium chloride 0.9%, 0.5-20 mL, intra-catheter, Q8H ROSA MARIA sodium chloride 0.9%, 5-10 mL, intra-catheter, Q12H ROSA MARIA sucralfate, 1 g, oral, QID (with meals & nightly) tacrolimus, 0.5 mg, oral, Every other day voriCONAZOLE, 200 mg, oral, BID Continuous Infusions: PRN Meds:. acetaminophen albuterol sodium chloride 0.9% dextrose OR dextrose glucagon morphine ondansetron ODT OR ondansetron lubricant ramelteon sodium chloride 0.9% sodium chloride 0.9% Assessment/Plan Principal Problem: Dysphagia Active Problems: Food impaction of esophagus No problem-specific Assessment & Plan notes found for this encounter. Plan #Severe Esophagitis #Gastritis #Nausea w/ Vomiting - Resolved #Dysphagia - Improving - EGD completed showing severe erosive esophagitis w/ gastritis - GI recommend PPI BID x8 weeks w/ 1 gram sucralfate QID x8 weeks, plan for repeat EGD in 3 months and follow-up in clinic in 4 weeks - patient tolerated PO diet graduation w/o issue. C/w mechanical soft diet - c/w pantoprazole 40mg BID, sucralfate - pathology biopsies notable for negative H. Pylori, active esophagitis w/ ulceration w/ negative dysplasia/malignancy, fungal organisms, or viral inclusions -reviewed CBC CMP EGD chest x-ray continue ppi follow-up with GI as outpatient Findings: Mildly severe esophagitis with no bleeding was found 35 to 45 cm from the incisors. A medium amount of solid food (residue) was found in the gastric body. The procedure was aborted. Impression: - Mildly severe esophagitis with no bleeding. - A medium amount of solid food (residue) in the stomach. Procedure aborted. - No specimens collected. Recommendation: - [facility] - Advance diet as tolerated. - Use Protonix (pantoprazole) 40 mg PO BID for 8 weeks. - Use sucralfate suspension 1 gram PO QID for 8 weeks. - Repeat upper endoscopy in 8 weeks to check healing. - Return to GI clinic in 3 weeks. Reviewed CBC CMP discussed with Infectious Disease discussed with case management plan for discharge in a.m. reviewed chest x-ray antibiotic medication will be adjusted tomorrow per ID recommendation #Community Acquired Pneumonia #MSSA Bacteremia #COPD Exacerbation - Resolved #Chronic Hypoxemic Respiratory Failure - on RA this AM, baseline 3L NC reported. Remains off O2 >4 days - c/w Ancef w/ ID following, soriano-sensitive. Day 8 of appropriate coverage - TTE completed, notable for EF 55-60%, only mitral valve commented on w/ no vegetation. AV, TV, PVnot well visualized. ID recommended OTIS for further evaluation to r/o endocarditis. - GI completed repeat EGD w/ continued severe esophagitis and recommended against OTIS. ID recommend6 weeks of IV Abx for treatment. - PICC ordered for placement, patient will need home IV Abx education prior to dc, anticipate 03/02 - repeat blood cultures 02/23 finalized no growth - respiratory panel negative - on steroid taper for possible COPD exacerbation per previous provider notes. 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 WBC 12.4, Hgb 11.2, Plt 365. Follow CBC Q48H Reviewed CBC and CMP continue to monitor #HLD Continue atorvastatin #DM - A1C: 6.7% 02/2024 Continue insulin sliding Abnormal LFT follow CMP Anticipate discharge in a.m. Voice recognition software [employer] was used dictate and transcribe this document. Home Care Provider variances may occur. Despite proofreading, typographical errors may occur. For patients or family members viewing this note through [employer]: This note was written as a communication tool between healthcare providers and may contain technical language, terminology and abbreviations that is difficult to interpret without advanced medical training. If you have questions or concerns regarding what is written in this note, please request to speak with the primary medical team taking care of you or your family member. * Gianna Dey MD - 03/05/2024 10:55 AM CDT General Medicine Daily Progress Subjective Interval History: Patient seen and examined Patient requested PFT but patient has pneumonia now will get PFT after pneumonia resolved patient to continue antibiotic to Saturday in evaluate final antibiotic before discharge on Saturday Discussed with clinical social work therapist id recommendation appreciated plan to switch to Ancef in the next 48 hours Patient denies chest pain fever or chills I am seeing the patient for sepsis Objective Vitals: 24hr Min/Max: Temp Min: 36.6 ??C (97.9 ??F) Max: 37.7 ??C (99.9 ??F) Pulse Min: 80 Max: 105 BP Min: 110/68 Max: 134/90 Resp Min: 16 Max: 20 SpO2 Min: 97 % Max: 98 % Most Recent : Vitals: 03/05/24 0000 03/05/24 0400 03/05/24 0500 03/05/24 0730 BP: 110/68 111/67 113/79 BP Location: Left arm Left arm Left arm Patient Position: Sitting Sitting HOB 30 degrees Pulse: 105 80 80 Resp: 18 18 16 Temp: 37.7 ??C (99.9 ??F) 37 ??C (98.6 ??F) 36.9 ??C (98.4 ??F) TempSrc: Oral Oral Oral SpO2: 97% 98% 97% Weight: 62.4 kg (137 lb 9.6 oz) Height: Physical Exam: Alert Chest clear to auscultation bilateral Abdomen nontender nondistended CVS S1-S2 Neural moves extremities Lab/Radiology/Diagnostic Review: Lab Results Component Value Date WBC 14.0 (H) 03/05/2024 HGB 11.8 (L) 03/05/2024 HCT 35.7 (L) 03/05/2024 MCV 107.9 (H) 03/05/2024 LABPLAT 281 03/05/2024 Chemistry Lab Results Component Value Date SODIUM 136 03/05/2024 POTASSIUM 4.3 03/05/2024 CHLORIDE 101 03/05/2024 CO2 27 03/05/2024 ANIONGAP 8 03/05/2024 BUNSER 25 03/05/2024 CREATININE 0.98 03/05/2024 GLUCOSE 93 03/05/2024 URICACID 5.2 02/13/2022 CALCIUM 8.9 03/05/2024 BILITOT 0.3 03/05/2024 PROTEIN 7.2 12/14/2016 ALBUMIN 3.3 (L) 03/05/2024 GFRNAA 90 03/05/2024 GFRAA 94 04/05/2016 ALKPHOS 148 (H) 03/05/2024 AST 64 (H) 03/05/2024 ALT 36 03/05/2024 PHOS 3.7 02/14/2022 MAGNESIUM 2.1 02/21/2024 Recent Labs Lab Units 03/05/24 0749 03/04/24 0511 03/03/24 0423 WBC K/cumm 14.0* 17.0* 20.8* HEMOGLOBIN g/dL 11.8* 12.0* 11.6* HEMATOCRIT % 35.7* 35.6* 36.1* PLATELETS K/cumm 281 321 324 . Recent Labs Lab Units 03/05/24 0749 03/05/24 0737 03/05/24 0036 03/04/24 0742 03/04/24 0511 03/04/24 0005 03/03/24 0430 03/03/24 0423 SODIUM mmol/L 136 -- -- -- 136 136 -- 138 POTASSIUM PLASMA mmol/L 4.3 -- -- -- 5.4* 5.1* -- 4.5 CHLORIDE mmol/L 101 -- -- -- 98 98 -- 102 CO2 mmol/L 27 -- -- -- 29 27 -- 25 CREATININE mg/dL 0.98 -- -- -- 0.96 1.12 -- 0.82 GLUCOSE mg/dL 93 -- -- -- 145 158 -- 53* POC GLUCOSE MONITOR mg/dL -- 110 147 < > -- -- < > -- CALCIUM mg/dL 8.9 -- -- -- 9.2 9.2 -- 9.0 ALBUMIN g/dL 3.3* -- -- -- 3.6 -- -- 3.6 < > = values in this interval not displayed. Scheduled Meds:acyclovir, 400 mg, oral, TID albuterol HFA, 2 puff, inhalation, Q6H While awake (RT) atorvastatin, 40 mg, oral, Daily benzonatate, 200 mg, oral, TID budesonide-formoteroL, 2 puff, inhalation, BID (RT) And tiotropium bromide, 2 puff, inhalation, Daily (RT) cefepime, 1,000 mg, intravenous, Q6H ROSA MARIA gabapentin, 300 mg, oral, QID guaiFENesin ER, 1,200 mg, oral, BID insulin glargine, 12 Units, subcutaneous, Nightly insulin lispro, 0-4 Units, subcutaneous, Nightly insulin lispro, 0-5 Units, subcutaneous, TID with meals montelukast, 10 mg, oral, Nightly mycophenolate mofetil, 1,000 mg, oral, BID nicotine, 1 patch, transdermal, Daily pantoprazole DR, 40 mg, oral, BID rivaroxaban, 20 mg, oral, Daily with breakfast sodium chloride 0.9%, 0.5-20 mL, intra-catheter, Q8H ROSA MARIA sodium chloride 0.9%, 5-10 mL, intra-catheter, Q12H ROSA MARIA sucralfate, 1 g, oral, QID (with meals & nightly) tacrolimus, 0.5 mg, oral, Every other day voriCONAZOLE, 200 mg, oral, BID Continuous Infusions: PRN Meds:. acetaminophen albuterol sodium chloride 0.9% dextrose OR dextrose glucagon morphine ondansetron ODT OR ondansetron lubricant ramelteon sodium chloride 0.9% sodium chloride 0.9% Assessment/Plan Principal Problem: Dysphagia Active Problems: Food impaction of esophagus No problem-specific Assessment & Plan notes found for this encounter. Plan #Severe Esophagitis #Gastritis #Nausea w/ Vomiting - Resolved #Dysphagia - Improving - EGD completed showing severe erosive esophagitis w/ gastritis - GI recommend PPI BID x8 weeks w/ 1 gram sucralfate QID x8 weeks, plan for repeat EGD in 3 months and follow-up in clinic in 4 weeks - patient tolerated PO diet graduation w/o issue. C/w mechanical soft diet - c/w pantoprazole 40mg BID, sucralfate - pathology biopsies notable for negative H. Pylori, active esophagitis w/ ulceration w/ negative dysplasia/malignancy, fungal organisms, or viral inclusions -reviewed CBC CMP EGD chest x-ray continue ppi follow-up with GI as outpatient Findings: Mildly severe esophagitis with no bleeding was found 35 to 45 cm from the incisors. A medium amount of solid food (residue) was found in the gastric body. The procedure was aborted. Impression: - Mildly severe esophagitis with no bleeding. - A medium amount of solid food (residue) in the stomach. Procedure aborted. - No specimens collected. Recommendation: - [facility]. - Advance diet as tolerated. - Use Protonix (pantoprazole) 40 mg PO BID for 8 weeks. - Use sucralfate suspension 1 gram PO QID for 8 weeks. - Repeat upper endoscopy in 8 weeks to check healing. - Return to GI clinic in 3 weeks. Continue above treatment discussed with the manager of case reviewed CBC CMP #Community Acquired Pneumonia #MSSA Bacteremia #COPD Exacerbation - Resolved #Chronic Hypoxemic Respiratory Failure - on RA this AM, baseline 3L NC reported. Remains off O2 >4 days - c/w Ancef w/ ID following, soriano-sensitive. Day 8 of appropriate coverage - TTE completed, notable for EF 55-60%, only mitral valve commented on w/ no vegetation. AV, TV, PVnot well visualized. ID recommended OTIS for further evaluation to r/o endocarditis. - GI completed repeat EGD w/ continued severe esophagitis and recommended against OTIS. ID recommend6 weeks of IV Abx for treatment. - PICC ordered for placement, patient will need home IV Abx education prior to dc, anticipate 03/02 - repeat blood cultures 02/23 finalized no growth - respiratory panel negative - on steroid taper for possible COPD exacerbation per previous provider notes. Currently on 20mg, steroid taper finishes 03/02 w/ 10mg dose - c/w Symbicort and Spiriva, Mucinex Complicated decision benefit outweighed the risk still have significant leukocytosis reviewed CBC continue IV antibiotics #Hx of AML s/p BMT #Hx of VTE - c/w Xarelto 20mg daily - continue home antiviral -continue home CellCept -continue home voriconazole -continue home tacrolimus - blood counts stable. WBC 12.4, Hgb 11.2, Plt 365. Follow CBC Q48H Continue to monitor continue current treatment #HLD Continue atorvastatin #DM - A1C: 6.7% 02/2024 Avoid hypoglycemia continue insulin sliding scale Abnormal LFT continue to monitor repeat in a.m. Anticipate discharge on Saturday Voice recognition software [employer] was used dictate and transcribe this document. Home Care Provider variances may occur. Despite proofreading, typographical errors may occur. For patients or family members viewing this note through [employer]: This note was written as a communication tool between healthcare providers and may contain technical language, terminology and abbreviations that is difficult to interpret without advanced medical training. If you have questions or concerns regarding what is written in this note, please request to speak with the primary medical team taking care of you or your family member. * Osmar Orta MD - 03/05/2024 9:52 AM CDT Progress Note Infectious Diseases Chief complaint: MSSA bacteremia. Pneumonia. Immunocompromised state. Subjective Minimal cough. No shortness of breath. No fever. Objective Vitals: 03/05/24 0730 BP: 113/79 Pulse: 80 Resp: 16 Temp: 36.9 ??C (98.4 ??F) SpO2: 97% Constitutional: Alert, oriented x3. In no distress. Eyes: Sclerae anicteric, no conjunctival erythema Lungs: Scattered rhonchi at the bases stable. Heart: Regular rate and rhythm, no murmurs Abdomen: Bowel sounds present, soft, nontender Skin: Warm and dry, No rashes Extremities: No edema Neuro: No motor deficit Psych: No anxiety Current Medications: Current Facility-Administered Medications Medication Dose Route Frequency Provider Last Rate Last Admin acetaminophen (TYLENOL) tablet 650 mg 650 mg oral Q4H PRN Josefa Taylor NP 650 mgat 03/01/24 2228 acyclovir (ZOVIRAX) capsule 400 mg 400 mg oral TID Josefa Taylor NP 400 mg at 03/05/24 0807 albuterol 2.5 mg/0.5 mL nebulizer solution 2.5 mg 2.5 mg nebulization Q4H PRN (RT) Gianna Dey MD 2.5 mg at 03/04/24 0712 albuterol HFA (PROVENTIL HFA,VENTOLIN HFA,PROAIR HFA) 90 mcg/actuation inhaler 2 puff 2 puff inhalation Q6H While awake (RT) Gianna Dey MD 2 puff at 03/05/24 0830 atorvastatin (LIPITOR) tablet 40 mg 40 mg oral Daily Josefa Taylor NP 40 mg at 03/05/24 0807 benzonatate (TESSALON) capsule 200 mg 200 mg oral TID Rufin, Daniele Tabeduardo, WEB SITE SPECIALIST 200 mg at 03/05/24 0807 budesonide-formoteroL (SYMBICORT) 160-4.5 mcg/actuation inhaler 2 puff 2 puff inhalation BID (RT) Josefa Taylor NP 2 puff at 03/05/24 0825 And tiotropium bromide (SPIRIVA RESPIMAT) 2.5 mcg/actuation inhaler 2 puff 2 puff inhalation Daily (RT)Josefa Taylor NP 2 puff at 03/05/24 0830 Carrier Fluids for Secondary Infusion - 0.9% Sodium Chloride 30 mL intravenous PRN Josefa Taylor, WEB SITE SPECIALIST cefepime (MAXIPIME) 1,000 mg in sodium chloride 0.9% 100 mL IVPB 1,000 mg intravenous Q6H Osamr Arguello MD 200 mL/hr at 03/05/24 0631 1,000 mg at 03/05/24 0631 dextrose (GLUTOSE) 40 % gel 15 g 15 g oral Q15 Min PRN Corbin Cole MD Or dextrose (D10W) 10% bolus 250 mL 250 mL intravenous Q15 Min PRN Corbin Cole MD gabapentin (NEURONTIN) capsule 300 mg 300 mg oral QID Josefa Taylor NP 300 mg at 03/05/24 0806 glucagon injection 1 mg 1 mg intramuscular Q30 Min PRN Corbin Cole MD guaiFENesin ER (MUCINEX) extended release tablet 1,200 mg 1,200 mg oral BID Corbin Cole MD 1,200 mg at 03/05/24 0806 insulin glargine (LANTUS, SEMGLEE) 100 unit/mL injection 12 Units 12 Units subcutaneous Nightly Rivera, Saim, DO 12 Units at 03/04/242124 insulin lispro (HumaLOG, ADMELOG) 100 unit/mL injection 0-4 Units 0-4 Units subcutaneous Nightly Rivera, Saim, DO 1 Units at 03/04/242124 insulin lispro (HumaLOG, ADMELOG) 100 unit/mL injection 0-5 Units 0-5 Units subcutaneous TID with meals Rivera, Saim, DO 1 Units at 03/04/24 182 montelukast (SINGULAIR) tablet 10 mg 10 mg oral Nightly Josefa Taylor NP 10 mg at03/04/242124 morphine injection 2 mg 2 mg intravenous Q3H PRN Pacheco Quintanilla MD 2 mg at 03/04/24 0050 mycophenolate mofetil (CELLCEPT) tablet 1,000 mg 1,000 mg oral BID Josefa Taylor NP 1,000 mg at 03/05/24 0808 nicotine (NICODERM CQ) 21 mg patch 24 hour 1 patch 1 patch transdermal Daily Corbin Cole MD 1 patch at 03/05/24 0808 ondansetron ODT (ZOFRAN-ODT) disintegrating tablet 4 mg 4 mg oral Q6H PRN Josefa Taylor NP Or ondansetron (ZOFRAN) injection 4 mg 4 mg intravenous Q6H PRN Josefa Taylor NP pantoprazole DR (PROTONIX) extended release tablet 40 mg 40 mg oral BID Corbin Cole MD 40 mg at 03/05/24 0806 peg [id number] (ARTIFICAL TEARS) 1-0.2-0.2 % ophthalmic solution 1 drop 1 drop each eye TID PRN Rivera, Saim, DO 1 drop at 02/29/24 1622 ramelteon (ROZEREM) tablet 8 mg 8 mg oral Nightly PRN Josefa Taylor NP 8 mg at 03/01/24 0005 rivaroxaban (XARELTO) tablet 20 mg 20 mg oral Daily with breakfast Josefa Taylor NP 20 mg at 03/05/24 0806 sodium chloride 0.9% flush 0.5-20 mL 0.5-20 mL intra-catheter Q8H ROSA MARIA Josefa Taylor NP 10 mL at 03/04/24 1256 sodium chloride 0.9% flush 0.5-20 mL 0.5-20 mL intra-catheter PRN Josefa Taylor NP sodium chloride 0.9% flush 5-10 mL 5-10 mL intra-catheter Q12H ROSA MARIA Rivera, Saim, DO 10 mL at 03/05/24 0809 sodium chloride 0.9% flush 5-20 mL 5-20 mL intra-catheter PRN Rivera, Saim, DO sucralfate (CARAFATE) 100 mg/mL oral suspension 1 g 1 g oral QID (with meals & nightly) Corbin Cole MD 1 g at 03/05/24 0806 tacrolimus immediate-release capsule 0.5 mg 0.5 mg oral Every other day Josefa Taylor NP 0.5 mg at 03/04/24 0923 voriCONAZOLE (VFEND) tablet 200 mg 200 mg oral BID Josefa Taylor NP 200 mg at 03/05/24 0808 Allergies Allergen Reactions Adhesive Redness burn Social [...] Binge Drinking: Not on file WBC count of 14. Creatinine of 0.8. Blood cultures day 3 no growth. Assessment/Plan MSSA bacteremia likely pulmonary source. Endovascular infection is a concern also unfortunately teewas not done due to severe esophagitis. Patient is currently on cefepime day 3 of 5. Total antibiotics day 14 of 42 days. Plan to transition back to Ancef in the next 48 hours planning 27 more days of Ancef as an outpatient 2. Right lung pneumonia progressively improving. MRSA screening was negative. Currently on cefepimeday 3 of 5. White count is trending down. No hypoxia. 3. Leukocytosis suspect secondary to ongoing pneumonia. Improved with cefepime day 3 of 5. Continue2 more days of cefepime and subsequently transitioned back to Ancef 4. History of AML with stem cell transplant. History of mild [id number]-hcvv reaction on chronic suppressive therapy including CellCept and tacrolimus. Patient is also on voriconazole and acyclovircontinue. 5. Severe esophagitis seen on EGD. No nausea or vomiting. No dysphagia Osmar Orta MD [facility] [place] Infectious Disease [place] Office [phone] * Osmar Orta MD - 03/04/2024 12:18 PM CDT Progress Note Infectious Diseases Chief complaint: MSSA bacteremia. Pneumoniae. Immunocompromised state. Esophagitis Subjective No fever or chills. Minimal cough. No chest pain. To loose stool without diarrhea. Objective Vitals: 03/04/24 1142 BP: 115/74 Pulse: 80 Resp: 18 Temp: 36.6 ??C (97.9 ??F) SpO2: 97% Constitutional: Alert, oriented x3. In no distress. Eyes: Sclerae anicteric, no conjunctival erythema Lungs: Good bilateral air entry minimal scattered rhonchi at the bases. Heart: Regular rate and rhythm, no murmurs Abdomen: Bowel sounds present, soft, nontender Skin: Warm and dry, No rashes. Right upper extremity PICC line in place. No bleeding or induration. Extremities: No edema Neuro: No motor deficit Psych: No anxiety Current Medications: Current Facility-Administered Medications Medication Dose Route Frequency Provider Last Rate Last Admin acetaminophen (TYLENOL) tablet 650 mg 650 mg oral Q4H PRN Josefa Taylor NP 650 mgat 03/01/24 2228 acyclovir (ZOVIRAX) capsule 400 mg 400 mg oral TID Josefa Taylor NP 400 mg at 03/04/24 0923 albuterol 2.5 mg/0.5 mL nebulizer solution 2.5 mg 2.5 mg nebulization Q4H PRN (RT) Gianna Dey MD 2.5 mg at 03/04/24 0712 albuterol HFA (PROVENTIL HFA,VENTOLIN HFA,PROAIR HFA) 90 mcg/actuation inhaler 2 puff 2 puff inhalation Q6H While awake (RT) Gianna Dey MD 2 puff at 03/03/24 1529 atorvastatin (LIPITOR) tablet 40 mg 40 mg oral Daily Josefa Taylor NP 40 mg at 03/04/24 0924 benzonatate (TESSALON) capsule 200 mg 200 mg oral TID Alonzo Hullo ARMEN Bowen 200 mg at 03/04/24 0923 budesonide-formoteroL (SYMBICORT) 160-4.5 mcg/actuation inhaler 2 puff 2 puff inhalation BID (RT) Josefa Taylor NP 2 puff at 03/04/24 0712 And tiotropium bromide (SPIRIVA RESPIMAT) 2.5 mcg/actuation inhaler 2 puff 2 puff inhalation Daily (RT)Josefa Taylor NP 2 puff at 03/04/24 0712 Carrier Fluids for Secondary Infusion - 0.9% Sodium Chloride 30 mL intravenous PRN Josefa Taylor NP cefepime (MAXIPIME) 1,000 mg in sodium chloride 0.9% 100 mL IVPB 1,000 mg intravenous Q6H Osmar Arguello MD 200 mL/hr at 03/04/24 0553 1,000 mg at 03/04/24 0553 dextrose (GLUTOSE) 40 % gel 15 g 15 g oral Q15 Min PRN Corbin Cole MD Or dextrose (D10W) 10% bolus 250 mL 250 mL intravenous Q15 Min PRN Corbin Cole MD gabapentin (NEURONTIN) capsule 300 mg 300 mg oral QID Josefa Taylor NP 300 mg at 03/04/24 0924 glucagon injection 1 mg 1 mg intramuscular Q30 Min PRN Corbin Cole MD guaiFENesin ER (MUCINEX) extended release tablet 1,200 mg 1,200 mg oral BID TelemCorbin crespo MD 1,200 mg at 03/04/24 0923 insulin glargine (LANTUS, SEMGLEE) 100 unit/mL injection 12 Units 12 Units subcutaneous Nightly Rivera, Saim, DO 12 Units at 03/03/242020 insulin lispro (HumaLOG, ADMELOG) 100 unit/mL injection 0-4 Units 0-4 Units subcutaneous Nightly Rivera, Saim, DO 1 Units at 03/03/242020 insulin lispro (HumaLOG, ADMELOG) 100 unit/mL injection 0-5 Units 0-5 Units subcutaneous TID with meals Rivera, Saim, DO 1 Units at 03/03/24 1736 montelukast (SINGULAIR) tablet 10 mg 10 mg oral Nightly Josefa Taylor NP 10 mg at03/03/24 2020 morphine injection 2 mg 2 mg intravenous Q3H PRN Pacheco Quintanilla MD 2 mg at 03/04/24 0050 mycophenolate mofetil (CELLCEPT) tablet 1,000 mg 1,000 mg oral BID Josefa Taylor NP 1,000 mg at 03/04/24 0924 nicotine (NICODERM CQ) 21 mg patch 24 hour 1 patch 1 patch transdermal Daily Corbin Cole MD 1 patch at 03/04/24 0924 ondansetron ODT (ZOFRAN-ODT) disintegrating tablet 4 mg 4 mg oral Q6H PRN Josefa Taylor NP Or ondansetron (ZOFRAN) injection 4 mg 4 mg intravenous Q6H PRN Josefa Taylor NP pantoprazole DR (PROTONIX) extended release tablet 40 mg 40 mg oral BID Corbin Cole MD 40 mg at 03/04/24 0923 peg [id number] (ARTIFICAL TEARS) 1-0.2-0.2 % ophthalmic solution 1 drop 1 drop each eye TID PRN Rivera, Saim, DO 1 drop at 02/29/24 1622 polyethylene glycol (MIRALAX) packet 17 g 17 g oral Daily PRN Josefa Taylor NP ramelteon (ROZEREM) tablet 8 mg 8 mg oral Nightly PRN Josefa Taylor NP 8 mg at 03/01/24 0005 rivaroxaban (XARELTO) tablet 20 mg 20 mg oral Daily with breakfast Josefa Taylor NP 20 mg at 03/04/24 0923 sodium chloride 0.9% flush 0.5-20 mL 0.5-20 mL intra-catheter Q8H ROSA MARIA Josefa Taylor, WEB SITE SPECIALIST 10 mL at 03/04/24 0552 sodium chloride 0.9% flush 0.5-20 mL 0.5-20 mL intra-catheter PRN Josefa Taylor, WEB SITE SPECIALIST sodium chloride 0.9% flush 5-10 mL 5-10 mL intra-catheter Q12H ROSA MARIA Rivera, Saim, DO 10 mL at 03/04/24 0924 sodium chloride 0.9% flush 5-20 mL 5-20 mL intra-catheter PRN Rivera, Saim, DO sucralfate (CARAFATE) 100 mg/mL oral suspension 1 g 1 g oral QID (with meals & nightly) Corbin Cole MD 1 g at 03/04/24 0924 tacrolimus immediate-release capsule 0.5 mg 0.5 mg oral Every other day Josefa Taylor NP 0.5 mg at 03/04/24 0923 voriCONAZOLE (VFEND) tablet 200 mg 200 mg oral BID Josefa Taylor NP 200 mg at 03/04/24 0924 Allergies Allergen Reactions Adhesive Redness burn Social [...] Binge Drinking: Not on file WBC count 17. Creatinine of 0.9. Blood cultures x2 sets day 2 no growth. Assessment/Plan 1. MSSA bacteremia likely pulmonary source. Transthoracic echocardiogram was a poor study OTIS was not done due to severe esophagitis. Currently on cefepime day 2 total antibiotics day 13 of 42 days. Patient Ancef was transitioned to cefepime while treating will return to Ancef once treatment is completed. 2. Right lung pneumonia with leukocytosis and worsening infiltrate. Currently on cefepime day 2. MRSA screening was negative. If no improvement may consider bronchoscopy. 3. Leukocytosis suspect secondary to ongoing pneumonia. No diarrhea. Referral IV access as well as PICC line inspected. No induration or erythema. 4. History of AML with stem cell transplant with mild hgywn-iwuzpi-sxau reaction on chronic suppressive therapy including CellCept and tacrolimus. Patient is also acyclovir and voriconazole 5. Severe esophagitis seen on EGD. Nausea or vomiting. No pain. Osmar Orta MD [facility] Infectious Disease [place] Office [phone] * Gianna Dey MD - 03/04/2024 11:35 AM CDT General Medicine Daily Progress Subjective Interval History: Patient seen and examined Patient requested PFT but patient has pneumonia now will get PFT after pneumonia resolved patient to continue antibiotic to Saturday in evaluate final antibiotic before discharge on Saturday Patient denies chest pain fever or chills I am seeing the patient for sepsis Objective Vitals: 24hr Min/Max: Temp Min: 36.5 ??C (97.7 ??F) Max: 37.2 ??C (99 ??F) Pulse Min: 76 Max: 98 BP Min: 110/67 Max: 155/74 Resp Min: 18 Max: 20 SpO2 Min: 96 % Max: 99 % Most Recent : Vitals: 03/04/24 0316 03/04/24 0535 03/04/24 0707 03/04/24 0712 BP: 130/84 110/67 BP Location: Left arm Patient Position: Lying Pulse: 89 83 Resp: 18 20 Temp: 37.2 ??C (99 ??F) 36.8 ??C (98.2 ??F) TempSrc: Oral SpO2: 98% 98% 98% Weight: 62 kg (136 lb 11.2 oz) Height: Physical Exam: Alert Chest clear to auscultation bilateral Abdomen nontender nondistended CVS S1-S2 Neural moves extremities Lab/Radiology/Diagnostic Review: Lab Results Component Value Date WBC 17.0 (H) 03/04/2024 HGB 12.0 (L)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 infectious markers. 02/22 Overnight patient afebrile hemodynamically stable maintaining oxygen saturation on room air. Glucose on chemistries 239 repeat point of care glucose in 100s. 02/23 Overnight patient afebrile hemodynamically stable maintaining SaO2 on room air. Hyperglycemia notedon chemistries. Repeat point of care glucose improved. Modified long-acting insulin. Blood culturesfrom 02/21 resulted we 2/2 indicating Gram-positive bacteremia. 1/2 growing MSSA bacteremia. Vancomycin started. Infectious Disease consulted. Echo ordered. Mild leukocytosis noted on labs. Patient reporting diarrhea 3 loose bowel movements this morning. Imodium ordered. OBJECTIVE Vitals: 24hr Min/Max: Temp Min: 36.2 ??C (97.2 ??F) Max: 36.8 ??C (98.2 ??F) Pulse Min: 77 Max: 91 BP Min: 127/80 Max: 158/89 Resp Min: 16 Max: 25 SpO2 Min: 98 % Max: 100 % Most Recent : Vitals: 02/24/24 1150 BP: 142/89 Pulse: 87 Resp: 16 Temp: 36.5 ??C (97.7 ??F) SpO2: 99% I/O last 2 completed shifts: In: 2430 [P.O.:2400; I.V.:30] Out: 2350 [Urine:2350] I/O this shift: In: 550 [P.O.:550] Out: 1000 [Urine:1000] O2 Therapy for the past 12 hrs: O2 Therapy O2 Flow Rate (L/min) 02/24/24 1150 None (Room air) -- 02/24/24 0820 Supplemental oxygen 3 L/min 02/24/24 0411 -- 3 L/min Physical Exam: Vitals reviewed Constitutional: NAD, comfortable, in bed Eyes: anicteric, vision grossly intact ENT: MMM Lungs: Normal depth and effort of breathing, improved wheezing and pulmonary congestion room air Heart: Regular, no murmur, no ankle edema Abd: +BS, Non Tender, Non distended : no indwelling beltran catheter Neuro: No new deficits appreciated Musculoskeletal: ROM grossly intact Skin: warm dry Psychiatric: alert, oriented Lab/Current Medication Review: Recent Results (from the past 24 hour(s)) POCT glucose Collection Time: 02/23/24 4:48 PM Result Value Ref Range Glucose, POC 245 (H) 70 - 199 mg/dL Glucose comment 1 Use This Result Glucose comment 2 RN/MD Notified POCT glucose Collection Time: 02/23/24 8:19 PM Result Value Ref Range Glucose, POC 336 (H) 70 - 199 mg/dL Glucose comment 1 Use This Result Glucose comment 2 RN/MD Notified POCT glucose Collection Time: 02/24/24 12:00 AM Result Value Ref Range Glucose, POC 115 70 - 199 mg/dL POCT glucose Collection Time: 02/24/24 4:14 AM Result Value Ref Range Glucose, POC 345 (H) 70 - 199 mg/dL Glucose comment 1 Use This Result Glucose comment 2 RN/MD Notified Basic metabolic panel Collection Time: 02/24/24 4:56 AM Result Value Ref Range Sodium 137 135 - 145 mmol/L Potassium, pl 4.0 3.3 - 4.9 mmol/L Chloride 98 97 - 110 mmol/L CO2 30 22 - 32 mmol/L Anion gap 9 2 - 15 mmol/L BUN 19 6 - 25 mg/dL Creatinine 0.67 (L) 0.80 - 1.30 mg/dL Glucose 288 (H) 70 - 199 mg/dL Calcium 9.0 8.5 - 10.3 mg/dL CBC without differential Collection Time: 02/24/24 4:56 AM Result Value Ref Range WBC 11.7 (H) 3.8 - 9.9 K/cumm Hgb 11.3 (L) 13.0 - 17.5 g/dL Hct 34.2 (L) 38.9 - 50.3 % Plt 382 150 - 400 K/cumm MPV 10.3 9.1 - 12.3 fL RBC 3.23 (L) 4.30 - 5.80 M/cumm MCV 105.9 (H) 81.3 - 96.4 fL MCH 35.0 (H) 27.1 - 33.3 pg MCHC 33.0 32.3 - 35.7 g/dL RDW CV 15.9 (H) 11.1 - 14.9 % RDW SD 61.6 (H) 35.7 - 48.1 fL NRBC abs 0.03 (H) 0.00 - 0.01 K/cumm eGFR Collection Time: 02/24/24 4:56 AM Result Value Ref Range eGFR >90 >=60 mL/min/1.73 m2 POCT glucose Collection Time: 02/24/24 8:22 AM Result Value Ref Range Glucose, POC 112 70 - 199 mg/dL Glucose comment 1 Use This Result POCT glucose Collection Time: 02/24/24 11:51 AM Result Value Ref Range Glucose, POC 105 70 - 199 mg/dL Glucose comment 1 Use This Result No results found. A/P: Principal Problem: Dysphagia Active Problems: Food impaction of esophagus Resolved Problems: No resolved hospital problems. Gram-positive bacteremia 2/2 cultures growing Gram-positive organisms 1/2 MSSA -started vancomycin, consult Infectious Disease, ordered echo to rule out endocarditis. Repeated blood cultures -telemetry Esophagitis Nausea and vomiting -EGD today with no food bolus in the esophagus -moderately severe esophagitis noted -pantoprazole b.i.d. for 8 weeks -sucralfate q.i.d. 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 We will advance to regular as tolerated. Modified insulin regimen due to hyperglycemia. Anticipate discharge 02/21 once medically optimized 02/21 Hyperglycemia noted. Modified insulin regimen. Leukocytosis noted. Ordered blood cultures. Lactate ordered. We will c/w inhalers, antitussives, pulmonary toilet. Reports increased sputum production. Baseline wheezing, shortness breast on baseline oxygen. Chest Xray 02/21 indicated findings concerning for right apical airspace opacity concerning for pneumonia. Started empirical antibiotics. Startedsteroids for possible COPD exacerbation setting of pneumonia. Follow up lactate, MRSA, Legionella, mycoplasma pneumonia, strep pneumoniae. Chest X-rays 02/12 marked underlining emphysematous changes. Increased patchiness in right lateral mid lung opacity persistent opacity overlying the right infrahilar area concerning for pneumonia or aspiration. No pneumothorax. Possibly resolving previous pneumonia. However implement antibiotics given worsening sputum production and increase in infectious markers. We will monitor clinical improvement on antibiotics and sores. We will monitor blood sugars onsteroids and modify insulin regimen to optimize hyperglycemia. c/w pulmonary toilet. Ordered respiratory panel negative. 02/22 We will c/w empirical antibiotics and steroids. Continue inhalers. Patient clinically improving treatment pneumonia and COPD exacerbation. Blood sugars optimized on insulin. We will evaluate 02/23 for possible discharge if patient clinically optimized. /8 Noted to have positive bacteremia on blood cultures from 02/21. 11/19 growing MSSA. Infectious Disease consulted. Started vancomycin. Ordered echo to evaluate for endocarditis. She has been repeat blood cultures. Increase Lantus from 22 >>26 to optimize hyperglycemia. Ordered Imodium for waterydiarrhea. We will continue to monitor frequency of stools and consider further testing if warranted. Code status: Full Code DVT prophylaxis: Xarelto Diet: Mechanical soft PT/OT: Pending Case discussed Intertype Operator Bedside nurse [facility] moderate Voice recognition software MModal Fluency Direct may have been used dictate and transcribe this document. Home Care Provider variances may occur. Despite proofreading, typographical errors may occur. Corbin Cole MD [facility] Internal Medicine * Aneudy Quevedo, OT - 02/24/2024 9:38 AM CDT Occupational Therapy 02/24/24 0938 General Chart Reviewed Yes Session Type Evaluation OT Received On 02/24/24 Safe Environment Arm band checked;Patient found in supine;Gait belt utilized for all out of bed mobility Subjective Agreeable to Therapy Subjective Comment Oh, I have been walking to the bathroom Additional Pertinent History Dx: dysphagia, food impaction PMH: osteopenia, 3 L of 02 at home, DM,DVT Family/Caregiver Present No Occupational Therapy-Patient Goal Pt. would like to return home with roomate Current Functional Status OT Functional Mobility Indep for bed mobility OT Self Care SBA to don socks and walk to bathroom with IV pole OT Cognition WFL OT Communication WFL Precautions Precautions Fall risk Precaution Comments 3 L, IV, tele Home Living Type of Home Mobile Home Home Layout One level Home Access Stairs to enter with rails Entrance Stairs-Number of Steps 5 Home Mobility Equipment-Available 4-Wheeled walker Additional Comments Pt. indep at home with mobility and ADL's. Pt. has walk in shower, RTS Prior Function Level of [place] Independent with ADLs;Independent functional transfers;Independent with ambulation;Needs assistance with homemaking Lives With Significant other Receives Help From Spouse/Significant other Driving No Mode of Transportation Driven by others Prior Function Comments Pt. has assistance with meals, cleaning and laundry from roomate Pain Assessment Pain Assessment No/denies pain Activity Tolerance Endurance Tolerates 10 - 20 min activity with multiple rests Activity Tolerance Comments Pt. does have to take rest breaks, can get fatigued with continuous activity. Cognition Cognition Comments A/O x4 Overall Cognitive Status WFL Arousal/Alertness Alert Attention Span Appears intact Memory Appears intact Current communication Appears Intact Orientation Oriented X4 (person, place, time, situation) Following Commands Follows all commands and directions without difficulty Safety Judgment Good awareness of safety precautions Awareness of Errors Good awareness of errors made Problem Solving Able to problem solve independently Proprioception Proprioception No apparent deficits Motor Planning Motor Planning Appears intact Coordination Movements Are Fluid and Coordinated 1 Hand Function Coordination Functional Gross Grasp Functional Reach/Grasp RUE Reach WFL LUE Reach WFL RUE Grasp Gross grasp LUE Grasp Gross grasp Bed Mobility 1 Bed Mobility Comments 1 indep for bed mobility Transfer 1 Trials/Comments 1 SBA for transfer and mobility to bathroom with IV pole RUE Assessment RUE Assessment WFL LUE Assessment LUE Assessment WFL RLE Assessment RLE Assessment WFL LLE Assessment LLE Assessment WFL OT Treatment/Exercise Comments OT Treatment/Exercise Comments pt. able to don socks I'ly, complete mobility around room and toileting activity with SB Safe Environment End of Therapy Session Safe Environment End of Therapy Session Patient left sitting at edge of bed Assessment Prognosis Good Problem List Decreased endurance;Decreased IADL independence Plan Plan Plan of care initiated Recommendation/Plan OT Recommendation Home with family OT Frequency during current admission 3-5x/wk OT - Next Appointment 03/09/24 OT Evaluation Complete Yes Pt will benefit from skilled OT in order to increase safety and independence with ADL/IADls, decrease fall risk, promote healing, return to PLOF, decrease pain, and increase quality of life. Multi-Disciplinary Problems (from Occupational Therapy) Active Problems Problem: OT Misc Start Date: 02/24/24 Goal Start Date Expected End Date End Date OT [facility] [place] [facility] [place] 03/02/24 -- Goal Details: 1)Pt. Will be Indep with med mgnt activity. Goal Start Date Expected End Date End Date [place] [facility] [place] [facility] [place]24[place] 03/02/24 -- Goal Details: 2) Pt. Will be able to stand for 4-5 minutes to complete BUE exercises or ADL. Goal Start Date Expected End Date End Date OT [facility] [place] [facility] [place]24[place]24 03/02/24 -- Goal Details: 3) Pt. Will complete item retrieval from high/low surfaces I'ly, * Corbin Cole MD - 02/23/2024 8:52 AM CDT Images from the original note were not included. General Medicine Daily Progress HPI Presents to [facility] with a chief complaint of feeling like food was stuck in his esophagus. Patient is a 58 y.o. male with a PMHx significant for COPD, chronic hypoxic respiratory failure on 3 L O2, AML s/p marrow transplant, chronic admhn-hxuxjq-rbkn disease, type 2 diabetes mellitus, and hiatal hernia. Patient presented to outside hospital with complaints of feeling like food was stuck in his esophagus, he had been eating steak and felt like it did not pass fully. He he was unable to tolerate oral intake and vomited at water prior to arrival here. He was transferred to our facility because the outside facility did not have GI services. He did not have any imaging done prior to transfer. GI was consulted on arrival and he was taken for EGD. EGD showed moderately severe erosive esophagitis without bleeding or food bolus in the esophagus, gastritis was also noted with normal 1st and 2nd portions of the duodenum. Biopsies were taken and pathology is pending. He is cleared to advance his diet to a clear liquid diet and will need to remain on pantoprazole 40 mg b.i.d. for 8 weeks as well as sucralfate 1 g p.o. q.i.d. for 8 weeks with repeat scope in 3 months and outpatient follow-up with GI in 4 weeks. INTERVAL HISTORY 02/20 Overnight patient afebrile hemodynamically stable. Maintaining SaO2 on 1 L. CBC and chemistries stable. Advancing diet as tolerated. Hyperglycemia noted modified insulin regimen. 02/21 Overnight patient afebrile hemodynamically stable maintaining SaO2 on room air. Hyperglycemia noted. Modified insulin regimen. Leukocytosis noted. Ordered blood cultures. Lactate ordered. We will c/winhalers, antitussives, pulmonary toilet. Reports increased sputum production. Baseline wheezing, shortness of breath on baseline oxygen. Chest Xray 02/21 indicated findings concerning for right apical airspace opacity concerning for pneumonia. Started empirical antibiotics. Started steroids for possible COPD exacerbation setting of pneumonia. Follow up lactate, MRSA, Legionella, mycoplasma pneumonia, strep pneumoniae. Respiratory pathogen panel negative. Chest X-rays 02/12 marked underlining emphysematous changes. Increased patchiness in right lateral mid lung opacity persistent opacity overlying the right infrahilar area concerning for pneumonia or aspiration. No pneumothorax. Possibly resolving previous pneumonia. However implement antibiotics given worsening sputum production and increase in infectious markers. 02/22 Overnight patient afebrile hemodynamically stable maintaining oxygen saturation on room air. Glucose on chemistries 239 repeat point of care glucose in 100s. OBJECTIVE Vitals: 24hr Min/Max: Temp Min: 36.3 ??C (97.3 ??F) Max: 36.7 ??C (98.1 ??F) Pulse Min: 69 Max: 80 BP Min: 122/70 Max: 160/92 Resp Min: 16 Max: 20 SpO2 Min: 94 % Max: 100 % Most Recent : Vitals: 02/23/24 0733 BP: 154/84 Pulse: 71 Resp: 18 Temp: SpO2: 100% I/O last 2 completed shifts: In: 650 [P.O.:360; I.V.:20; IV Piggyback:270] Out: 1600 [Urine:1600] I/O this shift: In: 250 [P.O.:240; I.V.:10] Out: - O2 Therapy for the past 12 hrs: O2 Therapy O2 Flow Rate (L/min) 02/23/24 0733 Supplemental oxygen 3 L/min 02/23/24 0717 Supplemental oxygen 2 L/min 02/23/24 0343 Supplemental oxygen 3 L/min 02/22/24 2322 Supplemental oxygen 3 L/min Physical Exam: Vitals reviewed Constitutional: NAD, comfortable, in bed Eyes: anicteric, vision grossly intact ENT: MMM Lungs: Normal depth and effort of breathing, wheezing , improving 3L Heart: Regular, no murmur, no ankle edema Abd: +BS, Non Tender, Non distended : no indwelling beltran catheter Neuro: No new deficits appreciated Musculoskeletal: ROM grossly intact Skin: warm dry Psychiatric: alert, oriented Lab/Current Medication Review: Recent Results (from the past 24 hour(s)) Blood culture Blood Collection Time: 02/22/24 10:21 AM Specimen: Blood Result Value Ref Range Report Preliminary Report: No growth to date. Blood culture Blood Collection Time: 02/22/24 10:26 AM Specimen: Blood Result Value Ref Range Report Preliminary Report: No growth to date. POCT glucose Collection Time: 02/22/24 11:38 AM Result Value Ref Range Glucose, POC 247 (H) 70 - 199 mg/dL Glucose comment 1 Use This Result Lactate Collection Time: 02/22/24 2:27 PM Result Value Ref Range Lactate 2.0 0.7 - 2.0 mmol/L Respiratory pathogen panel Nasopharyngeal Collection Time: 02/22/24 3:05 PM Specimen: Nasopharyngeal Result Value Ref Range Influenza [...] M. pneumoniae DNA Not Detected Not Detected MRSA Only (Staphylococcus aureus) PCR Nasal Collection Time: 02/22/24 3:05 PM Specimen: Nasal Result Value Ref Range PCR Scrn, Methicillin resistant Staphylococcus aureus (MRSA) Not Detected Not Detected Legionella antigen Urine Collection Time: 02/22/24 3:05 PM Specimen: Urine Result Value Ref Range Legionella Ag Negative Negative Strep pneumoniae antigen, urine Urine Collection Time: 02/22/24 3:05 PM Specimen: Urine Result Value Ref Range S. pneumoniae Ag Negative Negative POCT glucose Collection Time: 02/22/24 5:21 PM Result Value Ref Range Glucose, POC 176 70 - 199 mg/dL POCT glucose Collection Time: 02/22/24 7:17 PM Result Value Ref Range Glucose, POC 186 70 - 199 mg/dL Glucose comment 1 Use This Result Glucose comment 2 RN/MD Notified Basic metabolic panel Collection Time: 02/23/24 6:31 AM Result Value Ref Range Sodium 135 135 - 145 mmol/L Potassium, pl 4.2 3.3 - 4.9 mmol/L Chloride 98 97 - 110 mmol/L CO2 28 22 - 32 mmol/L Anion gap 9 2 - 15 mmol/L BUN 15 6 - 25 mg/dL Creatinine 0.62 (L) 0.80 - 1.30 mg/dL Glucose 239 (H) 70 - 199 mg/dL Calcium 8.3 (L) 8.5 - 10.3 mg/dL CBC without differential Collection Time: 02/23/24 6:31 AM Result Value Ref Range WBC 7.7 3.8 - 9.9 K/cumm Hgb 10.5 (L) 13.0 - 17.5 g/dL Hct 31.5 (L) 38.9 - 50.3 % Plt 339 150 - 400 K/cumm MPV 9.9 9.1 - 12.3 fL RBC 3.01 (L) 4.30 - 5.80 M/cumm MCV 104.7 (H) 81.3 - 96.4 fL MCH 34.9 (H) 27.1 - 33.3 pg MCHC 33.3 32.3 - 35.7 g/dL RDW CV 15.5 (H) 11.1 - 14.9 % RDW SD 59.8 (H) 35.7 - 48.1 fL NRBC abs 0.00 0.00 - 0.01 K/cumm eGFR Collection Time: 02/23/24 6:31 AM Result Value Ref Range eGFR >90 >=60 mL/min/1.73 m2 POCT glucose Collection Time: 02/23/24 7:36 AM Result Value Ref Range Glucose, POC 159 70 - 199 mg/dL Glucose comment 1 Use This Result No results found. A/P: Principal Problem: Dysphagia Active Problems: Food impaction of esophagus Resolved Problems: No resolved hospital problems. Esophagitis Nausea and vomiting -EGD today with no food bolus in the esophagus -moderately severe esophagitis noted -pantoprazole b.i.d. for 8 weeks -sucralfate q.i.d. 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 We will advance to regular as tolerated. Modified insulin regimen due to hyperglycemia. Anticipate discharge 02/21 once medically optimized 02/21 Hyperglycemia noted. Modified insulin regimen. Leukocytosis noted. Ordered blood cultures. Lactate ordered. We will c/w inhalers, antitussives, pulmonary toilet. Reports increased sputum production. Baseline wheezing, shortness breast on baseline oxygen. Chest Xray 02/21 indicated findings concerningfor right apical airspace opacity concerning for pneumonia. Started empirical antibiotics. Started steroids for possible COPD exacerbation setting of pneumonia. Follow up lactate, MRSA, Legionella, mycoplasma pneumonia, strep pneumoniae. Chest X-rays 02/12 marked underlining emphysematous changes. Increased patchiness in right lateral mid lung opacity persistent opacity overlying the right infrahilar area concerning for pneumonia or aspiration. No pneumothorax. Possibly resolving previous pneumonia. However implement antibiotics given worsening sputum production and increase in infectious markers. We will monitor clinical improvement on antibiotics and sores. We will monitor blood sugars on steroids and modify insulin regimen to optimize hyperglycemia. c/w pulmonary toilet. Ordered respiratory panel negative. 02/22 We will c/w empirical antibiotics and steroids. Continue inhalers. Patient clinically improving treatment pneumonia and COPD exacerbation. Blood sugars optimized on insulin. We will evaluate 02/23 for possible discharge if patient clinically optimized. Code status: Full Code DVT prophylaxis: Xarelto Diet: Mechanical soft PT/OT: Pending Case discussed Intertype Operator Bedside nurse [facility] low Voice recognition software MModal Fluency Direct may have been used dictate and transcribe this document. Home Care Provider variances may occur. Despite proofreading, typographical errors may occur. Corbin Cole MD [facility] * Michelle Mckeon, PT - 02/22/2024 10:07 AM CDT Physical Therapy 02/22/24 09 General Chart Reviewed Yes Session Type Evaluation PT Received On 02/22/24 Safe Environment Arm band checked;Patient found sitting at edge of bed Subjective Agreeable to Therapy Additional Pertinent History Patient is a 58 year old male presenting to hospital with dysphagia. He has a PMH of AML with bone marrow transplant (in remission), graft vs host disease, DM, COPD, CHF,PN, osteoporosis, osteopenia, chronic hypoxia with home O2 use, and hital hernia. Physical Therapy-Patient Goal None stated Precautions Precaution Comments 2 L O2 in room (pateint states that he only needs O2 when exerting himself and does not wear it all the time.) Home Living Type of Home Mobile Home Home Layout One level Home Access Stairs to enter with rails Entrance Stairs-Number of Steps 5 Home Mobility Equipment-Available 4-Wheeled walker Home Mobility Equipment-Currently Using None;4-Wheeled walker (Pateint can get by without AD most of the time. Has rollator for long distance community ambulation.) Prior Function Level of [place] Independent with ADLs;Independent functional transfers;Independent with ambulation Lives With Other (Comment) ([place] and her 2 kids, they have 2 dogs and 9 cats all together.) Receives Help From Other (Comment) (Roomate will help push him in rollator for long distances at times and will help with driving, reading pill bottles as needed. Patient has vision deficits and cataracts.) Driving No Mode of Transportation Driven by others Vocational/Occupation On disability Fall within the last 6 months No Prior Function Comments Patient is independent with ADLs he will use his O2 when doing more taxing tasks such as sweeping, mopping, and doing laundry. Uses 3 L of O2 during the day and 5 L at night when sleeping. Needs some help reading pills bottles at times and will need help driving at times. States that he can drive himself. Pain Assessment Pain Score 8 (Chest pain from coughing) Cognition Orientation Oriented X4 (person, place, time, situation) Transfer 1 Transfer From 1 Sit Transfer Type 1 To and from Transfer to 1 Stand Technique 1 Sit to stand;Stand to sit Transfer Device 1 No device Transfer Level of Assistance 1 Independent Ambulation 1 Distance (ft) 1 200 Surface 1 Level tile Device 1 No device Assistance 1 Independent Quality of Gait 1 increased ER of R foot and wide NANCY. Ambulation Comments 1 Pateint wished to ambulate without O2, he was provided with 1 standing rest break and SPO2 was 95% afterwards and O2 was placed back on. RUE Assessment RUE Assessment WFL LUE Assessment LUE Assessment WFL RLE Assessment RLE Assessment WFL LLE Assessment LLE Assessment WFL Safe Environment End of Therapy Session Safe Environment End of Therapy Session Patient left sitting at edge of bed;Call light within reach Assessment Prognosis Good Problem List Gait deviations;Decreased endurance Barriers to Discharge None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 Taylor NP [Transfer Hold] alyewxmybfp-kxnzyjhtp-mhbdrioy (TRELEGY ELLIPTA) 200-62.5-25 mcg inhaler 1 puff, 1 puff, inhalation, Daily (RT), Josefa Taylor NP [Transfer Hold] gabapentin (NEURONTIN) capsule 300 mg, 300 mg, oral, QID, Josefa Taylor NP [Transfer Hold] glucagon injection 1 mg, 1 mg, intramuscular, Q30 Min PRN, Josefa Taylor NP [Transfer Hold] insulin lispro (HumaLOG, ADMELOG) 100 unit/mL injection 0-5 Units, 0-5 Units, subcutaneous, Q4H ROSA MARIA, Josefa Taylor NP Lactated Ringer's (LR) infusion, 75 mL/hr, intravenous, Continuous, Josefa Taylor NP Lactated Ringer's (LR) infusion, 50 mL/hr, intravenous, Continuous, Will Umana MD [Transfer Hold] montelukast (SINGULAIR) tablet 10 mg, 10 mg, oral, Daily, Josefa Taylor NP [Transfer Hold] morphine injection 2 mg, 2 mg, intravenous, Q3H PRN, Pacheco Quintanilla MD [Transfer Hold] mycophenolate mofetil (CELLCEPT) tablet 1,000 mg, 1,000 mg, oral, BID, Josefa Taylor NP [Transfer Hold] ondansetron ODT (ZOFRAN-ODT) disintegrating tablet 4 mg, 4 mg, oral, Q6H PRN OR[Transfer Hold] ondansetron (ZOFRAN) injection 4 mg, 4 mg, intravenous, Q6H PRN, Josefa Taylor NP [Transfer Hold] polyethylene glycol (MIRALAX) packet 17 g, 17 g, oral, Daily PRN, Josefa Taylor NP [Transfer Hold] ramelteon (ROZEREM) tablet 8 mg, 8 mg, oral, Nightly PRN, Josefa Taylor NP [Transfer Hold] rivaroxaban (XARELTO) tablet 20 mg, 20 mg, oral, Daily with dinner, Josefa Taylor NP [Transfer Hold] sodium chloride 0.9% flush 0.5-20 mL, 0.5-20 mL, intra-catheter, Q8H ROSA MARIA, Josefa Taylor NP [Transfer Hold] sodium chloride 0.9% flush 0.5-20 mL, 0.5-20 mL, intra-catheter, PRN, Josefa Taylor NP [Transfer Hold] sodium chloride 0.9% flush 0.5-20 mL, 0.5-20 mL, intra-catheter, PRN, Gee Mcdaniel MD sodium chloride 0.9% infusion, 30 mL/hr, intravenous, Continuous, Gee Guevara MD [Transfer Hold] tacrolimus immediate-release capsule 0.5 mg, 0.5 mg, oral, Every other day, Josefa Taylor NP [Transfer Hold] traMADoL (ULTRAM) tablet 50 mg, 50 mg, oral, Q6H, Josefa Taylor NP [Transfer Hold] voriCONAZOLE (VFEND) tablet 200 mg, 200 mg, oral, BID, Josefa Taylor NP [Transfer Hold] acetaminophen [Transfer Hold] albuterol HFA [Transfer Hold] sodium chloride 0.9% [Transfer Hold] dextrose OR [Transfer Hold] dextrose [Transfer Hold] glucagon [Transfer Hold] morphine [Transfer Hold] ondansetron ODT OR [Transfer Hold] ondansetron [Transfer Hold] polyethylene glycol [Transfer Hold] ramelteon [Transfer Hold] sodium chloride 0.9% [Transfer Hold] sodium chloride 0.9% Lactated Ringer's, 75 mL/hr Lactated Ringer's, 50 mL/hr sodium chloride 0.9%, 30 mL/hr Family History Problem Relation Age of Onset Heart disease Mother Family history of cardiac disorder - (Added by TW Conv) Anesthesia problems Neg Hx Social History Tobacco [...] Frequency of Binge Drinking: Not on file Allergies Allergen Reactions Adhesive Redness burn Review of Systems Twelve point review of systems is negative except as per HPI Exam Vitals: 02/20/24 0648 02/20/24 0745 02/20/24 1148 02/20/24 1241 BP: 165/93 135/99 133/74 120/78 BP Location: Right arm Right arm Right arm Patient Position: Lying Pulse: 82 83 58 68 Resp: 16 17 18 16 Temp: 36.8 ??C (98.2 ??F) 36.6 ??C (97.9 ??F) 36.6 ??C (97.9 ??F) TempSrc: Oral Oral Oral SpO2: 99% 100% 100% 95% Weight: 65.8 kg (145 lb) Height: 180.3 cm (5' 11 ) Objective General appearance: alert, cooperative, no distress Eyes: PEERLA, no icterus HEENT: oral mucosa is moist. No ulcers Neck: supple, no jvd Skin: no rash or lesions Lungs: breath sounds normal and symmetric; no rales or wheezes Heart: regular rhythm, normal S1 and S2, without murmurs, gallops or rubs Abdomen: soft without mass, non-tender and non distended, with normal bowel sounds Back: no asymmetry or tenderness : No CVA tenderness Extremities: no clubbing, cyanosis or edema Neurological: No focal deficits. Speech is fluent. Assessment and plan 1. Food bolus impaction - differentials include esophageal stricture and impingement from a large hiatal hernia. - we will proceed with emergent upper endoscopy for evaluation. - keep NPO. - continue IV pantoprazole 40 mg b.i.d. - hold anticoagulation. Gee Mcdaniel MD documented in this encounter Nursing Notes * Ethel De Jesus RN - 03/07/2024 2:34 PM CDT Discharge instructions printed and explained to patient and caregiver. .States will be compliant with changes and follow up appointments recommended. * Toya Albright RN - 02/28/2024 12:00 AM CDT ARMEN Devries informed that pt's blood sugars have been running...340- HS, Refused the Lantus but took the4u of Novolog, 140 then 97 so far. He called me stating his sugar was 67 per his meter that's when mine registered 97. I gave him a snack and will recheck him at 0030. He remains asymptomatic. documented in this encounter Miscellaneous Notes * Plan of Care - Tasia Abreu RRT - 03/06/2024 9:08 PM CDT Problem: Chronic Obstructive Pulmonary Disease (COPD) Goal: Patient's ability to manage health related needs with COPD will improve 03/06/[id number] by Tasia Abreu RRT Outcome: Progressing 03/06/[id number] by Tasia Abreu RRT Outcome: Progressing Problem: Respiratory Goal: Achieves optimal ventilation and oxygenation Outcome: Progressing * Plan of Care - Sidra Parks RN - 03/06/2024 10:22 AM CDT Problem: Discharge Planning Goal: Understanding discharge needs will improve Outcome: Progressing Flowsheets (Taken 03/06/2024 1022) Understanding of discharge needs will improve: Collaborate with case management interdisciplinary team Problem: Lack of Knowledge Goal: Ability to [...] episodes of fatigue will improve Outcome: Progressing Problem: Lack of Knowledge Goal: Ability to describe self care measures that may prevent or decrease complications related to Type 2 Diabetes will improve Outcome: Progressing Problem: Health Nutrition Goal: Nutritional intake and knowledge related to Diabetes will improve Outcome: Progressing Problem: Respiratory Goal: Achieves optimal ventilation and oxygenation Outcome: Progressing Goal: Ability to maintain a clear airway will improve Outcome: Progressing Problem: Cardiovascular Goal: Maintains optimal cardiac output and hemodynamic stability Outcome: Progressing Goal: Absence of cardiac dysrhythmias or at baseline Outcome: Progressing Problem: Metabolic/Fluid and Electrolytes Goal: Electrolytes maintained within normal limits Outcome: Progressing Goal: Hemodynamic stability and optimal renal function maintained Outcome: Progressing Goal: Glucose maintained within prescribed range Outcome: Progressing Problem: Fall Risk Goal: Ability to state ways to decrease the risk of falls will improve Outcome: Progressing Goal: Will remain free from falls Outcome: Progressing Goal: Will remain free from injury from falls Outcome: Progressing Goals: Clinical Goals for the Shift: continued symptom management Signs And Displays Salesperson Patient Centered Goal for Treatment: back to baseline, retirement abx after discharge Summary: * Plan of Care - Bela Pizano RN - 03/06/2024 9:17 AM CDT CARE COORDINATION DISCHARGE PLANNING HOME: Patient will d/c home with support from room mate, friends. Transportation home provided by friend. Patient/Family denies needs or barriers to care. [facility] infusion has been arranged for pt to discharge with ancef TID. Dr. Orta's note yesterday states pt may be ready in 48 hrs, which would put discharge on Saturday. Pt will need first two doses of ancef here at hospital, as delivery of medications can not be until evening. Milana, with [facility] infusions has placed extension on picc line and teaching has done for patient to administer ancef at home per self. HOME HEALTH: Home Healthcare needed: HHC list provided, and patient preferences taken. C has been set up with: [facility] [address] [place] [address] Above [facility] has accepted patient. With plan for start of care on 24-48 hrs after discharge.. Pt/family aware. HHC info added to AVS. Home health/infusion order pended to MD for signature. Bedside RN to fax order and AVS to above fax number at d/c. ANTICIPATED D/C DATE:03/06/2024-03/08/2024 CM will continue to follow for progression of care, if further needs for discharge or barriers to care arise, please reach out to care management team. Bela Pizano RN 03/06/2024 9:17 AM * Plan of Care - Arleen Lagos RN - 03/06/2024 8:30 AM CDT Second teach and return demo complete Education and demo provided for IV Ancef admin via IV Push device, including storage, preparation, administration, troubleshooting, aseptic technique, followup appts, where to call/what to do for problems. Extension and clave added to SL PICC line flushes easily 10ML NS with good blood return noted. Patient able to return demonstrate flushing PICC line correctly. Arleen/Milana Lagos RN [facility], [facility] care [phone] * Plan of Care - Page Bunch CRTT - 03/06/2024 8:11 AM CDT Problem: Chronic Obstructive Pulmonary Disease (COPD) Goal: Patient's ability to manage health related needs with COPD will improve Outcome: Progressing * Plan of Care - Toya Albright RN - 03/06/2024 3:54 AM CDT Problem: Lack of Knowledge Goal: Ability to develop a pain control plan will improve Outcome: Ongoing Flowsheets (Taken 03/06/2024353) Ability to develop a pain control plan will improve: Educate pain scale for assessing level of pain Explain causes of pain and how long pain can be expected to last Problem: Lack of Knowledge Goal: Ability to describe self care measures that may prevent or decrease complications related to Type 2 Diabetes will improve Outcome: Ongoing Flowsheets (Taken 03/06/2024 035) Ability to describe self care measures that may prevent or decrease complications related to Type 2Diabetes will improve: Teach risks of complications of diabetes Teach/demonstrate insulin injections Problem: Respiratory Goal: Ability to maintain a clear airway will improve Outcome: Ongoing Flowsheets (Taken 03/06/2024353) Ability to maintain a clear airway will improve: Evaluate breath sounds Goals: Clinical Goals for the Shift: continued symptom management [facility] Patient Centered Goal for Treatment: back to baseline, retirement abx after discharge Summary: continued symptom management * Plan of Care - Anaid Marsh CRTT - 03/05/2024 7:57 PM CDT Problem: Chronic Obstructive Pulmonary Disease (COPD) Goal: Patient's ability to manage health related needs with COPD will improve Outcome: Progressing Goal: Ability to implement measures to reduce episodes of fatigue will improve Outcome: Progressing Problem: Respiratory Goal: Achieves optimal ventilation and oxygenation Outcome: Progressing Goal: Ability to maintain a clear airway will improve Outcome: Progressing * Plan of Care - Page Bunch CRTT - 03/05/2024 8:31 AM CDT Problem: Chronic Obstructive Pulmonary Disease (COPD) Goal: Ability to implement measures to reduce episodes of fatigue will improve Outcome: Progressing * Plan of Care - Aditi Hazel RN - 03/05/2024 8:09 AM CDT Goals: Clinical Goals for the Shift: VSS, comfort, safety, monitor BS, monitor PICC Signs And Displays Salesperson Patient Centered Goal for Treatment: back to baseline, 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 computer terminal 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 after discharge Problem: Discharge Planning Goal: Understanding discharge needs will improve Outcome: Ongoing Flowsheets (Taken 03/05/2024 0808) Understanding of discharge needs will improve: Identify discharge barriers Arrange for needed discharge resources and transportation as appropriate Collaborate with case management interdisciplinary team Identify discharge learning needs (meds, wound care, etc.) Discuss information regarding discharge instructions Problem: Metabolic/Fluid and Electrolytes Goal: Electrolytes maintained within normal limits Outcome: Ongoing Flowsheets (Taken 03/05/2024 0808) Electrolytes maintained within normal limits: Monitor labs and assess patient for signs and symptoms of electrolyte imbalances Administer electrolyte replacement as ordered Monitor response to electrolyte replacements, including repeat lab results as appropriate Problem: Fall Risk Goal: Will remain free from falls Outcome: Ongoing Flowsheets (Taken 03/05/2024 0808) Will remain free from falls: Assess risk factors for falls * Plan of Care - Tasia Abreu RRT - 03/04/2024 8:29 PM CDT Problem: Respiratory Goal: Achieves optimal ventilation and oxygenation Outcome: Progressing * Plan of Care - Aditi Hazel RN - 03/04/2024 11:33 AM CDT Goals: Clinical Goals for the Shift: PICC line placement and discharged planning Signs And Displays Salesperson Patient Centered Goal for Treatment: Back to baseline Problem: Discharge Planning Goal: Understanding discharge needs will improve Outcome: Ongoing Flowsheets (Taken 03/04/2024 1132) Understanding of discharge needs will improve: Identify discharge learning needs (meds, wound care, etc.) Collaborate with case management interdisciplinary team Arrange for needed discharge resources and transportation as appropriate Identify discharge barriers Problem: Lack of Knowledge Goal: Ability to develop a pain control plan will improve Outcome: Ongoing Flowsheets (Taken 03/04/2024 1132) Ability to develop a pain control plan will improve: Explain causes of pain and how long pain can be expected to last Teach information regarding pain management Problem: Coping Goal: Ability to cope will improve Outcome: Ongoing Flowsheets (Taken 03/04/2024 1132) Ability to cope will Improve: Encourage vebalization of feelings surrounding pain Problem: Fall Risk Goal: Ability to state ways to decrease the risk of falls will improve Outcome: Ongoing Flowsheets (Taken 03/04/2024 1132) Ability to state ways to decrease the risk of falls will improve: Teach fall prevention measures * Plan of Care - Zita Vázquez RRT - 03/04/2024 7:15 AM CDT Problem: Chronic Obstructive Pulmonary Disease (COPD) Goal: Patient's ability to manage health related needs with COPD will improve Outcome: Progressing Goal: Ability to implement measures to reduce episodes of fatigue will improve Outcome: Progressing Problem: Respiratory Goal: Achieves optimal ventilation and oxygenation Outcome: Progressing Goal: Ability to maintain a clear airway will improve Outcome: Progressing * Plan of Care - Shaye Talbert RRT - 03/03/2024 9:05 PM CDT Problem: Chronic Obstructive Pulmonary Disease (COPD) Goal: Patient's ability to manage health related needs with COPD will improve Outcome: Progressing Goal: Ability to implement measures to reduce episodes of fatigue will improve Outcome: Progressing * Plan of Care - Porsha Watts RN - 03/03/2024 10:32 AM CDT Problem: Discharge Planning Goal: Understanding discharge needs will improve Outcome: Progressing Problem: Lack of Knowledge Goal: Ability to develop a pain control plan will improve Outcome: Progressing Problem: Coping Goal: Ability to cope will improve Outcome: Progressing Problem: Lack of Knowledge Goal: Ability to describe self care measures that may prevent or decrease complications related to Type 2 Diabetes will improve Outcome: Progressing Problem: Respiratory Goal: Achieves optimal ventilation and oxygenation Outcome: Progressing Problem: Cardiovascular Goal: Maintains optimal cardiac output and hemodynamic stability Outcome: Progressing Goals: Clinical Goals for the Shift: PICC line placement and discharged planning [facility] Patient Centered Goal for Treatment: Back to baseline * Plan of Care - Bela Pizano RN - 03/03/2024 8:16 AM CDT CARE COORDINATION DISCHARGE PLANNING HOME: Patient will d/c home with support from room mate/family. Transportation home provided by friend. Patient/Family denies needs or barriers to care. IV antibiotics have been arranged via [facility] infusion. Second teaching to be done this am. Pt able to discharge home for 3rd dose this evening. Pt has picc line in Right arm. Home health as arranged [facility] infusion. ANTICIPATED D/C DATE:03/03/2024 CM will continue to follow for progression of care, if further needs for discharge or barriers to care arise, please reach out to care management team. Bela Pizano RN 03/03/2024 8:16 AM * Plan of Care - Arleen Lagos RN - 03/02/2024 10:18 AM CDT First teach and return demo complete. Education and demo provided for IV Anceff admin via IV Push device, including storage, preparation, administration, troubleshooting, aseptic technique, followup appts, where to call/what to do for problems. Patient instructed and able to verbalize all information presented. Patient able to return demonstrate correctly. Second teach/return demo scheduled for 03/03/24 Arleen/Milana Lagos RN [facility], [facility] home care [phone] * Plan of Care - Shaye Yarbrough RRT - 03/02/2024 7:18 AM CDT Problem: Chronic Obstructive Pulmonary Disease (COPD) Goal: Patient's ability to manage health related needs with COPD will improve Outcome: Progressing Goal: Ability to implement measures to reduce episodes of fatigue will improve Outcome: Progressing * Plan of Care - Fadia Dejesus LPN - 03/01/2024 10:15 AM CDT Goals: Clinical Goals for the Shift: remain free from falls, stable blood glucose, stable VS Signs And Displays Salesperson Patient Centered Goal for Treatment: Back to baseline Summary: Problem: Discharge Planning Goal: Understanding discharge [...] episodes of fatigue will improve Outcome: Progressing Problem: Lack of Knowledge Goal: Ability to describe self care measures that may prevent or decrease complications related to Type 2 Diabetes will improve Outcome: Progressing Problem: Health Nutrition Goal: Nutritional intake and knowledge related to Diabetes will improve Outcome: Progressing Problem: Respiratory Goal: Achieves optimal ventilation and oxygenation Outcome: Progressing Goal: Ability to maintain a clear airway will improve Outcome: Progressing Problem: Cardiovascular Goal: Maintains optimal cardiac output and hemodynamic stability Outcome: Progressing Goal: Absence of cardiac dysrhythmias or at baseline Outcome: Progressing Problem: Metabolic/Fluid and Electrolytes Goal: Electrolytes maintained within normal limits Outcome: Progressing Goal: Hemodynamic stability and optimal renal function maintained Outcome: Progressing Goal: Glucose maintained within prescribed range Outcome: Progressing Problem: Fall Risk Goal: Ability to state ways to decrease the risk of falls will improve Outcome: Progressing Goal: Will remain free from falls Outcome: Progressing Goal: Will remain free from injury from falls Outcome: Progressing * Plan of Care - Porsha Watts RN - 02/29/2024 10:05 AM CDT Problem: Discharge Planning Goal: Understanding [...] Ability to cope will improve Outcome: Progressing Goals: Clinical Goals for the Shift: Remain free from falls, reduced pain, stable VS Signs And Displays Salesperson Patient Centered Goal for Treatment: Back to baseline Summary: patient has no complaints of pain. Needs were addressed * Plan of Care - Tamiko Tavera RN - 02/29/2024 5:53 AM CDT Goals: Clinical Goals for the Shift: Remain free from falls, reduced pain, stable VS Signs And Displays Salesperson Patient Centered Goal for Treatment: Back to baseline Summary: PRN pain medication given (see MAR) to full effect. Patient had hypoglycemic episode around midnight (see flowsheets). WEB SITE SPECIALIST contacted and lantus dose changed. Patient asymptomatic. Patient currently resting in bed with call light within reach. Problem: Discharge Planning Goal: Understanding discharge needs will improve Outcome: Progressing Flowsheets (Taken 02/28/2024 035 by Toya Albright, RN) Understanding of discharge needs will improve: Identify discharge barriers Problem: Lack of Knowledge Goal: Ability to develop a pain control plan will improve Outcome: Progressing Flowsheets (Taken 02/23/2024 225 by Carmel Dudley, RN) Ability to develop a pain control plan will improve: Explain causes of pain and how long pain can be expected to last Educate pain scale for assessing level of pain Problem: Medication Goal: Satisfaction with pain management medication regimen will improve Outcome: Progressing Flowsheets (Taken 02/28/20242248) Satisfaction with pain management medication regimen will improve: Assess satisfaction with pain management regimen Evaluate medication effects Report inadequate pain control to healthcare provider Problem: Sensory Goal: Ability to identify factors that increase pain levels will improve while working to decrease the patient's pain levels Outcome: Progressing Flowsheets (Taken 02/28/2024 0355 by Toya Albright, RN) Ability to identify factors that increase pain levels will improve while working to decrease patients pain levels: Observe non-verbal cues of discomfort, such as restlessness, muscle tension, or altered vital signs Assess pain status Encourage distraction activities Problem: Coping Goal: Ability to cope will improve Outcome: Progressing Flowsheets (Taken 02/27/2024 1048 by Ethel De Jesus, RN) Ability to cope will Improve: Encourage vebalization of feelings surrounding pain Problem: Health Behavior Goal: Identification of resources available to assist in meeting health care needs will improve Outcome: Progressing Problem: Chronic Obstructive Pulmonary Disease (COPD) Goal: Patient's ability to manage health related needs with COPD will improve Outcome: Progressing Flowsheets (Taken 02/28/20242248) Patient's ability to manage health related needs with COPD will improve: Support pulmonary rehabilitation Support exploration of health care options Encourage patient and family involvement in discharge planning Goal: Ability to implement measures to reduce episodes of fatigue will improve Outcome: Progressing Flowsheets (Taken 02/28/20242248) Ability to implement measures to reduce episodes of fatigue will improve: Assist scheduling of activities to allow for periods of rest Ability to perform activities at highest level will improve Encourage energy conservation techniques Assist with scheduling periods of activity and rest Problem: Lack of Knowledge Goal: Ability to describe self care measures that may prevent or decrease complications related to Type 2 Diabetes will improve Outcome: Progressing Flowsheets (Taken 02/28/20242248) Ability to describe self care measures that may prevent or decrease complications related to Type 2Diabetes will improve: Teach risks of complications of diabetes Teach blood glucose measurement Teach signs and symptoms of hyperglycemia Teach signs and symptoms of hypoglycemia Discuss diabetes sick day management Teach/demonstrate insulin injections Problem: Health Nutrition Goal: Nutritional intake and knowledge related to Diabetes will improve Outcome: Progressing Flowsheets (Taken 02/28/20242248) Nutritional intake and knowledge related to Diabetes will improve: Instruct on counting carbohydrates Discuss benefits of regular exercise as it is related to blood glucose lowering effect and overall weight loss goals Problem: Respiratory Goal: Achieves optimal ventilation and oxygenation Outcome: Progressing Flowsheets (Taken 02/23/2024 07 by Zaria Grajeda, [employer]) Achieves optimal ventilation and oxygenation: Assess for changes in respiratory status Evaluate effectiveness and side effects of inhalation therapy and medications Manage oxygen therapy Goal: Ability to maintain a clear airway will improve Outcome: Progressing Flowsheets (Taken 02/28/20242248) Ability to maintain a clear airway will improve: Evaluate breath sounds Problem: Cardiovascular Goal: Maintains optimal cardiac output and hemodynamic stability Outcome: Progressing Flowsheets (Taken 02/28/20242248) Maintain optimal cardiac output and hemodynamic Stability: Monitor for bleeding, hypotension and signs of decreased cardiac output Monitor vital signs, rhythm, and trends Assess quality of pulses, skin color and temperature Assess for signs of decreased coronary artery perfusion - ex. angina Goal: Absence of cardiac dysrhythmias or at baseline Outcome: Progressing Flowsheets (Taken 02/28/2024 0355 by Toya Albright, RN) Absence of cardiac dysrhythmias or at baseline: Initiate emergency measures for life threatening arrhythmias Administer antiarrhythmic and heart rate control medications as ordered Problem: Metabolic/Fluid and Electrolytes Goal: Electrolytes maintained within normal limits Outcome: Progressing Flowsheets (Taken 02/24/2024 1508 by Aditi Hazel RN) Electrolytes maintained within normal limits: Monitor labs and assess patient for signs and symptoms of electrolyte imbalances Administer electrolyte replacement as ordered Monitor response to electrolyte replacements, including repeat lab results as appropriate Goal: Hemodynamic stability and optimal renal function maintained Outcome: Progressing Flowsheets (Taken 02/28/20242248) Hemodynamic stability and optimal renal function maintained: Monitor labs and assess for signs and symptoms of volume excess or deficit Goal: Glucose maintained within prescribed range Outcome: Progressing Flowsheets (Taken 02/28/20242248) Glucose maintained within prescribed range: Assess for signs and symptoms of hyperglycemia and hypoglycemia, monitor glucose as ordered Administer ordered medications to maintain glucose within target range Assess barriers to adequate nutritional intake and initiate nutrition consult as needed Instruct patient on self management of diabetes and initiate consult as needed Problem: Fall Risk Goal: Ability to state ways to decrease the risk of falls will improve Outcome: Progressing Flowsheets (Taken 02/28/20242248) Ability to state ways to decrease the risk of falls will improve: Teach fall prevention measures Goal: Will remain free from falls Outcome: Progressing Flowsheets (Taken 02/28/20242248) Will remain free from falls: Assess risk factors for falls Goal: Will remain free from injury from falls Outcome: Progressing Flowsheets (Taken 02/28/20242248) Will remain free from injury from falls: Provide safe environment for conduction of activities of daily living in hospital environment Problem: Lack of Knowledge Goal: Knowledge of risk factors and measures for prevention condition will improve Outcome: Completed Problem: Physical Regulation Goal: Spread of further infection will be prevented Outcome: Completed Goal: Complications related to the disease process, condition, or treatment will be avoided or minimized Outcome: Completed Problem: Lack of Knowledge Goal: Knowledge of risk factors and measures for prevention of condition will improve Outcome: Completed Problem: Physical Regulation Goal: Spread of further infection will be prevented Outcome: Completed Goal: Complications related to the disease process, condition, or treatment will be avoided or minimized Outcome: Completed * Plan of Care - Arleen Lagos RN - 02/28/2024 3:07 PM CDT Left patient a voicemail that this nurse coordinator will see the patient in the hospital room Saturday morning for bedside teaching, encouraged if patient has a caregiver to be present as well for theteaching that would beneficial. My contact information given for any questions or concerns. Arleen/Milana Lagos RN [facility], [facility] care [phone] * Plan of Care - Sidra Parks RN - 02/28/2024 10:07 AM CDT Problem: Discharge Planning Goal: Understanding [...] episodes of fatigue will improve Outcome: Progressing Problem: Lack of Knowledge Goal: Ability to describe self care measures that may prevent or decrease complications related to Type 2 Diabetes will improve Outcome: Progressing Problem: Health Nutrition Goal: Nutritional intake and knowledge related to Diabetes will improve Outcome: Progressing Problem: Respiratory Goal: Achieves optimal ventilation and oxygenation Outcome: Progressing Goal: Ability to maintain a clear airway will improve Outcome: Progressing Problem: Cardiovascular Goal: Maintains optimal cardiac output and hemodynamic stability Outcome: Progressing Goal: Absence of cardiac dysrhythmias or at baseline Outcome: Progressing Problem: Lack of Knowledge Goal: Knowledge of risk factors and measures for prevention condition will improve Outcome: Progressing Problem: Physical Regulation Goal: Spread of further infection will be prevented Outcome: Progressing Goal: Complications related to the disease process, condition, or treatment will be avoided or minimized Outcome: Progressing Problem: Lack of Knowledge Goal: Knowledge of risk factors and measures for prevention of condition will improve Outcome: Progressing Problem: Physical Regulation Goal: Spread of further infection will be prevented Outcome: Progressing Goal: Complications related to the disease process, condition, or treatment will be avoided or minimized Outcome: Progressing Problem: Metabolic/Fluid and Electrolytes Goal: Electrolytes maintained within normal limits Outcome: Progressing Goal: Hemodynamic stability and optimal renal function maintained Outcome: Progressing Goal: Glucose maintained within prescribed range Outcome: Progressing Problem: Fall Risk Goal: Ability to state ways to decrease the risk of falls will improve Outcome: Progressing Goal: Will remain free from falls Outcome: Progressing Goal: Will remain free from injury from falls Outcome: Progressing Goals: Clinical Goals for the Shift: safety and care/treatment compliance Signs And Displays Salesperson Patient Centered Goal for Treatment: Back to baseline Summary: * Plan of Care - Bela Pizano RN - 02/28/2024 8:50 AM CDT Care Management Weekly Progression of Care Review Pt originally admitted for Dysphagia [R13.10] PCP: Gama Lindsay DO Current Plan of Care Includes: ID recommending OTIS. Will need GI clearance due to erosive esophagitis. If cleared, OTIS can be performed, if not, he will likely need remote computer terminal operator antibiotics for 6 weeks and follow up with OTIS outpatient. Awaiting GI and ID recs. PT/OT Recommendations: home Barriers to Discharge: Waiting GI clearance for OTIS, if not cleared, anticipate retirement antibiotics. Anticipate Discharge Plan/Needs: Potentially need remote computer terminal operator antibiotics. Referral sent to [facility] home infusion(pending ID recs) Expected Discharge Date: Next week. Bela Pizano RN 02/28/2024 8:50 AM * Plan of Care - Arleen Lagos RN - 02/28/2024 8:44 AM CDT Infusion referral received. Will need to assess patient and/or family for home infusion appropriateness, verify benefits for home infusion, and educate patient/family on home infusion process. Referrals are processed between 8am - 4:30pm Saturday - Saturday. For after hour emergencies please call [phone]. Any referrals received after 4pm will be processed the next day. For discharge planning purposes please keep in mind that referrals can take 24 or more hours to process. Thank You Arleen/Milana Lagos RN [facility], [facility] care [phone] * Plan of Care - Toya Albright RN - 02/28/2024 3:56 AM CDT Problem: Discharge Planning Goal: Understanding discharge needs will improve Outcome: Ongoing Flowsheets (Taken 02/28/2024354) Understanding of discharge needs will improve: Identify discharge barriers Problem: Sensory Goal: Ability to identify factors that increase pain levels will improve while working to decrease the patient's pain levels Outcome: Ongoing Flowsheets (Taken 02/28/2024354) Ability to identify factors that increase pain levels will improve while working to decrease patients pain levels: Observe non-verbal cues of discomfort, such as restlessness, muscle tension, or altered vital signs Assess pain status Encourage distraction activities Problem: Chronic Obstructive Pulmonary Disease (COPD) Goal: Patient's ability to manage health related needs with COPD will improve Outcome: Ongoing Flowsheets (Taken 02/28/2024354) Patient's ability to manage health related needs with COPD will improve: Support exploration of health care options Problem: Cardiovascular Goal: Absence of cardiac dysrhythmias or at baseline Outcome: Ongoing Flowsheets (Taken 02/28/2024354) Absence of cardiac dysrhythmias or at baseline: Initiate emergency measures for life threatening arrhythmias Administer antiarrhythmic and heart rate control medications as ordered Goals: Clinical Goals for the Shift: safety and care/treatment compliance [facility] Patient Centered Goal for Treatment: Back to baseline Summary: Continued education re above stated goals as planning towards discharge continues * Plan of Care - Logan Sage MD - 02/27/2024 5:40 PM CDT Cardiology service consulted for OTIS to evaluate for infective endocarditis in the setting of MSSA bacteremia, per Infectious Disease recommendations. Patient with history of COPD and chronic hypoxic respiratory failure on 3 L oxygen, AML status postbone marrow transplant, hiatal hernia, dysphagia who underwent EGD with GI and was found to have severe erosive esophagitis and gastritis all of which would severely increased the risk of transesophageal echocardiogram, especially if transgastric views were needed to optimally visualized valves. Have requested formal GI clearance prior to OTIS If OTIS performed,would need to be done under general anesthesia. Please keep NPO tonight Would consider empiric 6 week trial of IV Abx for suspected IE, and reeval for OTIS once esophagitisresolved Logan Sage MD 02/27/2024 [facility] [place] Inpatient Cardiology Office: [phone] Please secure chat with questions * Plan of Care - Ethel De Jesus RN - 02/27/2024 10:50 AM CDT Goals: Clinical Goals for the Shift: comfort, safety, no shortess of breath [facility] Patient Cent[facility] Goal for Treatment: Back to baseline Summary: room air, denies pain, remains safe from falls * Plan of Care - Page Bunch CRTT - 02/27/2024 8:26 AM CDT Problem: Chronic Obstructive Pulmonary Disease (COPD) Goal: Patient's ability to manage health related needs with COPD will improve Outcome: Progressing * Plan of Care - Sidra Godoy RRT - 02/26/2024 10:17 PM CDT Problem: Chronic Obstructive Pulmonary Disease (COPD) Goal: Patient's ability to manage health related needs with COPD will improve Outcome: Progressing Goal: Ability to implement measures to reduce episodes of fatigue will improve Outcome: Progressing Problem: Respiratory Goal: Achieves optimal ventilation and oxygenation Outcome: Progressing Goal: Ability to maintain a clear airway will improve Outcome: Progressing * Plan of Care - Porsha Watts RN - 02/26/2024 8:00 AM CDT Problem: Discharge Planning Goal: Understanding discharge needs will improve Outcome: Progressing Problem: Lack of Knowledge Goal: Ability to develop a pain control plan will improve Outcome: Progressing Problem: Medication Goal: Satisfaction with pain management medication regimen will improve Outcome: Progressing Problem: Coping Goal: Ability to cope will improve Outcome: Progressing Problem: Lack of Knowledge Goal: Ability to describe self care measures that may prevent or decrease complications related to Type 2 Diabetes will improve Outcome: Progressing Goals: Clinical Goals for the Shift: stable VS, comfort, safety [facility] Patient Centered Goal for Treatment: Back to baseline * Plan of Care - Bela Pizano RN - 02/25/2024 3:00 PM CDT Care Management Weekly Progression of Care Review Pt originally admitted for Dysphagia [R13.10] PCP: Gama Lindsay DO Current Plan of Care Includes: Pt had positive blood cultures- MSSA bacteremia. Repeat blood cultures negative. CXR showing right apical airspace opacity. Ancef day 3(total 5). Echo pending. PT/OT Recommendations: home with family Barriers to Discharge: Not medically ready, on day 3 IV ancef. Pending ID to see if can transition to PO. Anticipate Discharge Plan/Needs: Home no needs Expected Discharge Date: Next few days, pending ID Bela Pizano RN 02/26/2024 7:55 AM * Plan of Care - Porsha Watts RN - 02/25/2024 10:36 AM CDT Problem: Discharge Planning Goal: Understanding discharge needs will improve Outcome: Progressing Problem: Lack of Knowledge Goal: Ability to develop a pain control plan will improve Outcome: Progressing Problem: Sensory Goal: Ability to identify factors that increase pain levels will improve while working to decrease the patient's pain levels Outcome: Progressing Problem: Coping Goal: Ability to cope will improve Outcome: Progressing Problem: Chronic Obstructive Pulmonary Disease (COPD) Goal: Patient's ability to manage health related needs with COPD will improve Outcome: Progressing Problem: Respiratory Goal: Achieves optimal ventilation and oxygenation Outcome: Progressing Goals: Clinical Goals for the Shift: stable VS, comfort, safety [facility] Patient Centered Goal for Treatment: Back to baseline Summary: patient sitting in bed. No pain or complaints * Plan of Care - Sylvia Arita RRT - 02/25/2024 7:11 AM CDT Problem: Chronic Obstructive Pulmonary Disease (COPD) Goal: Patient's ability to manage health related needs with COPD will improve Outcome: Progressing Goal: Ability to implement measures to reduce episodes of fatigue will improve Outcome: Progressing Problem: Respiratory Goal: Achieves optimal ventilation and oxygenation Outcome: Progressing Goal: Ability to maintain a clear airway will improve Outcome: Progressing * Plan of Care - Aditi Hazel RN - 02/24/2024 3:09 PM CDT Goals: Clinical Goals for the Shift: stable VS, comfort, safety [facility] Patient Centered Goal for Treatment: Back to baseline Problem: Discharge Planning Goal: Understanding discharge needs will improve Outcome: Ongoing Flowsheets (Taken 02/24/2024 1508) Understanding of discharge needs will improve: Collaborate with case management interdisciplinary team Identify discharge learning needs (meds, wound care, etc.) Problem: Metabolic/Fluid and Electrolytes Goal: Electrolytes maintained within normal limits Outcome: Ongoing Flowsheets (Taken 02/24/2024 1508) Electrolytes maintained within normal limits: Monitor labs and assess patient for signs and symptoms of electrolyte imbalances Administer electrolyte replacement as ordered Monitor response to electrolyte replacements, including repeat lab results as appropriate Problem: Coping Goal: Ability to cope will improve Outcome: Progressing Flowsheets (Taken 02/24/2024 1508) Ability to cope will Improve: Provide emotional support Problem: Chronic Obstructive Pulmonary Disease (COPD) Goal: Ability to implement measures to reduce episodes of fatigue will improve Outcome: Progressing Flowsheets (Taken 02/24/2024 1508) Ability to implement measures to reduce episodes of fatigue will improve: Assist scheduling of activities to allow for periods of rest Encourage energy conservation techniques Assist with scheduling periods of activity and rest Problem: Lack of Knowledge Goal: Knowledge of risk factors and measures for prevention of condition will improve Outcome: Progressing Flowsheets (Taken 02/24/2024 1508) Knowledge of risk factors and measures for prevention of condition will improve: Discuss risk of infection Discuss signs and symptoms of infection Teach significant others hand washing technique Discuss infection prevention measures Discuss good hand hygiene Use teach-back technique to assess learning * Plan of Care - Page Bunch CRTT - 02/24/2024 7:17 AM CDT Problem: Chronic Obstructive Pulmonary Disease (COPD) Goal: Patient's ability to manage health related needs with COPD will improve Outcome: Progressing * Plan of Care - Anaid Marsh CRTT - 02/23/2024 10:35 PM CDT Problem: Chronic Obstructive Pulmonary Disease (COPD) Goal: Patient's ability to manage health related needs with COPD will improve Outcome: Progressing Goal: Ability to implement measures to reduce episodes of fatigue will improve Outcome: Progressing Problem: Respiratory Goal: Achieves optimal ventilation and oxygenation Outcome: Progressing Goal: Ability to maintain a clear airway will improve Outcome: Progressing * Plan of Care - Anaid Reid RN - 02/23/2024 11:34 AM CDT Problem: Lack of Knowledge Goal: [...] episodes of fatigue will improve Outcome: Progressing Problem: Lack of Knowledge Goal: Ability to describe self care measures that may prevent or decrease complications related to Type 2 Diabetes will improve Outcome: Progressing Problem: Health Nutrition Goal: Nutritional intake and knowledge related to Diabetes will improve Outcome: Progressing Problem: Respiratory Goal: Achieves optimal ventilation and oxygenation Outcome: Progressing Goal: Ability to maintain a clear airway will improve Outcome: Progressing Problem: Cardiovascular Goal: Maintains optimal cardiac output and hemodynamic stability Outcome: Progressing Goal: Absence of cardiac dysrhythmias or at baseline Outcome: Progressing Problem: Metabolic/Fluid and Electrolytes Goal: Electrolytes maintained within normal limits Outcome: Progressing Goal: Hemodynamic stability and optimal renal function maintained Outcome: Progressing Goal: Glucose maintained within prescribed range Outcome: Progressing Problem: Lack of Knowledge Goal: Knowledge of risk factors and measures for prevention condition will improve Outcome: Progressing Problem: Discharge Planning Goal: Understanding discharge needs will improve Outcome: Progressing Goals: Clinical Goals for the Shift: stable VS, comfort, safety [facility] Patient Centered Goal for Treatment: Back to baseline * Plan of Care - Zaria Grajeda, CLOTH TESTER [employer]ITY - 02/23/2024 7:21 AM CDT Problem: Chronic Obstructive Pulmonary Disease (COPD) Goal: Patient's ability to manage health related needs with COPD will improve Outcome: Progressing Goal: Ability to implement measures to reduce episodes of fatigue will improve Outcome: Progressing Problem: Respiratory Goal: Achieves optimal ventilation and oxygenation Outcome: Progressing Flowsheets (Taken 02/23/2024 2221) Achieves optimal ventilation and oxygenation: Assess for changes in respiratory status Evaluate effectiveness and side effects of inhalation therapy and medications Manage oxygen therapy Goal: Ability to maintain a clear airway will improve Outcome: Progressing Flowsheets (Taken 02/23/2024 0721) Ability to maintain a clear airway will improve: Evaluate breath sounds * Plan of Care - Anaid Marsh CRTT - 02/22/2024 7:58 PM CDT Problem: Chronic Obstructive Pulmonary Disease (COPD) Goal: Patient's ability to manage health related needs with COPD will improve Outcome: Progressing Goal: Ability to implement measures to reduce episodes of fatigue will improve Outcome: Progressing Problem: Respiratory Goal: Achieves optimal ventilation and oxygenation Outcome: Progressing Goal: Ability to maintain a clear airway will improve Outcome: Progressing * Plan of Care - Ethel De Jesus RN - 02/22/2024 1:13 PM CDT Goals: Clinical Goals for the Shift: stable VS, comfort, safety [facility] Patient Centered Goal for Treatment: Back to baseline Summary: compliant with care, denies pain, VSS * Plan of Care - Zaria Grajeda RRT - 02/22/2024 7:28 AM CDT Problem: Chronic Obstructive Pulmonary Disease (COPD) Goal: Patient's ability to manage health related needs with COPD will improve Outcome: Progressing Goal: Ability to implement measures to reduce episodes of fatigue will improve Outcome: Progressing * Plan of Care - Dayron Taylor RN - 02/21/2024 1:42 PM CDT Goals: Problem: Discharge Planning Goal: Understanding discharge needs [...] health care needs will improve Outcome: Progressing Clinical Goals for the Shift: VSS, comfort, safety and pain management Signs And Displays Salesperson Patient Centered Goal for Treatment: Back to baseline * Plan of Care - Bela Pizano RN - 02/21/2024 9:00 AM CDT CARE COORDINATION DISCHARGE PLANNING HOME: Patient will d/c home with support from roommate/friends. Transportation home provided by room mate. Patient/Family denies needs or barriers to care. Pt currently on clear liquids, needs to advance as tolerated. If tolerates well, can possibly discharge home. ANTICIPATED D/C DATE:02/21/2024-02/22/2024 CM will continue to follow for progression of care, if further needs for discharge or barriers to care arise, please reach out to care management team. Bela Pizano RN 02/21/2024 9:00 AM * Plan of Care - Romana Hendricks RN - 02/21/2024 6:00 AM CDT Goals: Clinical Goals for the Shift: VSS, comfort, safety and pain management [facility] Patient Cent[facility] Goal for Treatment: Back to baseline Summary: Pt VSS and rested comfortably. No reports of acute or discomfort at this time. Safety precautions maintained. * Perioperative Nursing Note - Abby Draper RN - 02/20/2024 1:[address] Umana for patients non productive cough post procedure. New orders received, Respiratory contacted for breathing treatment. Patient cough decreasing, report called and transport put in. Patient states he is starting to feelbetter. * Initial Assessments - Bela Pizano RN - 02/20/2024 12:00 PM CDT CM Initial Assessment Interview Note Information Obtained From: Patient (02/20/24 0956) Admission Source: Transfer from [facility], originally from home . Impression: Feeling of food getting caught in throat. Transferred for GI consult. EGD scheduled forfood bolus impaction. Plan Includes: Patient plans to return home with room mate at time of discharge. Patient does not anticipate any needs. Pt wears 3 L 02 continuously at home. Primary Source of Transportation: Does the patient need discharge transport arranged?: No (02/20/24 1006) Health Insurance Coverage: Primary Coverage Payor Plan Insurance Group Employer/Plan Group [facility] MEDICARE MEDICARE SOLUTIONS [id number] Payor Plan Address Payor Plan Phone Number Payor Plan Fax Number Effective Dates [address] [address] 08/18/2020 - None Entered [facility] [address] Subscriber Name Subscriber Date Member ID BRI JONES 1965 [id number] Secondary Coverage Payor Plan Insurance Group [place]er/[place] Payor Plan Address Payor Plan Phone Number Payor Plan Fax Number Effective Dates [address] [address] 02/17/2024 - 02/20/2024 [place] [address] Subscriber Name Subscriber Date Member ID BRI JONES 1965 [id number] Tertiary Coverage Payor Plan Insurance Group Employer/Plan Group IDPA IDPA Payor Plan Address Payor Plan Phone Number Payor Plan Fax Number Effective Dates [address] [address] 05/18/2019 - None Entered [facility] [address] Subscriber Name Subscriber Date Member ID BRI JONES 1965 [id number] Pharmacy: [id number] - [place], [place] - [address] AT [address] OF [address] [place] [address] [id number] - [place] [address] [place] [address] [facility] [place] - [place], [place] - [address] [facility] [address] [facility] [address] Primary Care Provider: Gama Lindsay DO Prior to Admission: Functional Status: Independent with ADLs Primary Caregiver: Self Support System: Friends/neighbors Home Care Services: No Outpatient Services: No Durable Medical Equipment: Oxygen Oxygen Detail: 3 L continuous DME Name and Contact Number: [facility] Living Arrangements: Friends Type of Residence: Private residence Steps in home?: Yes, Outside of home Number of steps outside: 5 steps Medication management: Independent (02/20/24 0956) SDOH: Transportation: In the past 12 months, has lack of transportation kept you from medical appointments or from getting medications?: No In the past 12 months, has lack of transportation kept you from meetings, work, or from getting things needed for daily living?: No (02/20/24 100) Financial Resource: How hard is it for you to pay for the very basics like food, housing, medical care, and heating?: Not very hard (02/20/24 1003) Housing: In the last 12 months, was there a time when you were not able to pay the mortgage or rent on time?: No In the last 12 months, how many places have you lived?: 1 In the last 12 months, was there a time when you did not have a steady place to sleep or slept in ashelter (including now)?: No (02/20/24 1004) Utilities: No, (02/20/24 1003) Social Connections: In a typical week, how many times do you talk on the phone with family, friends, or neighbors?: Three times a week How often do you get together with friends or relatives?: Three times a week How often do you attend yazidi or jew services?: Never Do you belong to any clubs or organizations such as yazidi groups, unions, fraternal or athletic groups, or school groups?: No How often do you attend meetings of the clubs or organizations you belong to?: Never Are you , , , , never , or living with a partner?: (02/20/24 1003) Food Insecurity: Within the past 12 months, you worried that your food would run out before you got the money to buymore.: Never true Within the past 12 months, the food you bought just didn't last and you didn't have money to get more.: Never true (02/20/24 1004) Potential discharge needs include: Home Health: None (02/20/24 0956) Behavioral Health Services: Behavioral Health Services: No (02/20/24 0956) Patient expects to be Discharged to: Private residence, (02/20/24 1006) Patient's Identified Problem/Goal Problem: Ensure acute medical needs are met and that patient has a safe discharge plan. Goal: Secure a discharge plan that patient/family are agreeable with and ensure patient has continuum of care. Case management will follow for discharge planning and send referrals as needed. Bela Pizano RN * Plan of Care - Dayron Taylor RN - 02/20/2024 10:26 AM CDT Goals: Problem: Discharge Planning Goal: Understanding discharge needs will improve Outcome: Progressing Pt resting in bed with call light in reach. documented in this encounter Plan of Treatment Pending Results Name Type Priority Associated Diagnoses Date /Time Lipid panel Lab Timed 02/28/2024 5: 26 AM CDT Scheduled Orders Name Type Priority Associated Diagnoses Orde r Schedule Lipid panel Lab Timed Once for 1 Oc currences starting 02/28/2024 until 02/28/2024 CBC without differential Lab Routine Food impaction of esophagus, initial encounter CAP (community acquired pneumonia) Expected: 03/02/2024, Expires: 02/23/2025 documented as of this encounter Procedures Procedure Name Priority Date/Time Associated Diagnosis Comments POCT GLUCOSE DEVICE Routine 03/07/2024 11:41 AM CDT POCT GLUCOSE DEVICE Routine 03/07/2024 7:53 AM CDT POCT GLUCOSE DEVICE Routine 03/07/2024 3:56 AM CDT POCT GLUCOSE DEVICE Routine 03/06/2024 11:31 PM CDT POCT GLUCOSE DEVICE Routine 03/06/2024 8:03 PM CDT POCT GLUCOSE DEVICE Routine 03/06/2024 5:49 PM CDT POCT GLUCOSE DEVICE Routine 03/06/2024 11:31 AM CDT POCT GLUCOSE DEVICE Routine 03/06/2024 8:15 AM CDT PEP THERAPY Routine 03/06/2024 6:00 AM CDT CBC WITHOUT DIFFERENTIAL Timed 5:05 AM CDT POCT GLUCOSE DEVICE Routine 03/06/2024 4:11 AM CDT POCT GLUCOSE DEVICE Routine 03/06/2024 1:41 AM CDT EGFR Timed 03/06/2024 12:16 AM CDT BASIC METABOLIC PANEL Timed 03/06/2024 12:16 AM CDT PEP THERAPY Routine 03/06/2024 12:00 AM CDT POCT GLUCOSE DEVICE Routine 03/05/2024 11:49 PM CDT POCT GLUCOSE DEVICE Routine 03/05/2024 8:23 PM CDT PEP THERAPY Routine 03/05/2024 6:00 PM CDT POCT GLUCOSE DEVICE Routine 03/05/2024 4:25 PM CDT PEP THERAPY Routine 03/05/2024 12:00 PM CDT POCT GLUCOSE DEVICE Routine 03/05/2024 11:10 AM CDT EGFR Routine 03/05/2024 7:49 AM CDT CBC WITH AUTO DIFFERENTIAL Routine 03/05 7:49 AM CDT MANUAL DIFFERENTIAL Routine 03/05/2024 7:49 AM CDT COMPREHENSIVE METABOLIC PANEL Routine 7:49 AM CDT POCT GLUCOSE DEVICE Routine 03/05/2024 7:37 AM CDT POCT GLUCOSE DEVICE Routine 03/05/2024 12:36 AM CDT POCT GLUCOSE DEVICE Routine 03/04/2024 8:50 PM CDT PEP THERAPY Routine 03/04/2024 6:00 PM CDT POCT GLUCOSE DEVICE Routine 03/04/2024 4:49 PM CDT HIV 1/2 ANTIBODY PLUS P24 ANTIGEN Routine 03/04/2024 12:58 PM CDT PEP THERAPY Routine 03/04/2024 12:00 PM CDT POCT GLUCOSE DEVICE Routine 03/04/2024 11:56 AM CDT POCT GLUCOSE DEVICE Routine 03/04/2024 7:42 AM CDT PEP THERAPY Routine 03/04/2024 6:00 AM CDT EGFR Routine 03/04/2024 5:11 AM CDT CBC WITH AUTO DIFFERENTIAL Routine 03/04 5:11 AM CDT MANUAL DIFFERENTIAL Routine 03/04/2024 5:11 AM CDT COMPREHENSIVE METABOLIC PANEL Routine 5:11 AM CDT EGFR Timed 03/04/2024 12:05 AM CDT BASIC METABOLIC PANEL Timed 03/04/2024 12:05 AM CDT POCT GLUCOSE DEVICE Routine 03/03/2024 11:07 PM CDT POCT GLUCOSE DEVICE Routine 03/03/2024 7:06 PM CDT URINALYSIS AND REFLEX TO MICROSCOPIC Routine 03/03/2024 6:14 PM CDT PEP THERAPY Routine 03/03/2024 6:00 PM CDT POCT GLUCOSE DEVICE Routine 03/03/2024 5:05 PM CDT BLOOD CULTURE STAT 03/03/2024 4:57 PM CDT BLOOD CULTURE STAT 03/03/2024 4:11 PM CDT PEP THERAPY Routine 03/03/2024 12:00 PM CDT MRSA ONLY (STAPHYLOCOCCUS AUREUS) PCR Routine 03/03/2024 11:56 AM CDT POCT GLUCOSE DEVICE Routine 03/03/2024 11:55 AM CDT POCT GLUCOSE DEVICE Routine 03/03/2024 7:38 AM CDT PEP THERAPY Routine 03/03/2024 6:00 AM CDT POCT GLUCOSE DEVICE Routine 03/03/2024 5:53 AM CDT POCT GLUCOSE DEVICE Routine 03/03/2024 4:30 AM CDT EGFR Routine 03/03/2024 4:23 AM CDT CBC WITH AUTO DIFFERENTIAL Routine 03/03 4:23 AM CDT MANUAL DIFFERENTIAL Routine 03/03/2024 4:23 AM CDT COMPREHENSIVE METABOLIC PANEL Routine 4:23 AM CDT POCT GLUCOSE DEVICE Routine 03/03/2024 12:54 AM CDT PEP THERAPY Routine 03/03/2024 12:00 AM CDT POCT GLUCOSE DEVICE Routine 03/02/2024 7:[address] CHEST WO CONTRAST IP Routine 03/02/2024 6:51 PM CDT PEP THERAPY Routine 03/02/2024 6:00 PM CDT POCT GLUCOSE DEVICE Routine 03/02/2024 4:56 PM CDT POCT GLUCOSE DEVICE Routine 03/02/2024 12:48 PM CDT PEP THERAPY Routine 03/02/2024 12:00 PM CDT POCT GLUCOSE DEVICE Routine 03/02/2024 8:07 AM CDT PEP THERAPY Routine 03/02/2024 6:00 AM CDT MANUAL DIFFERENTIAL Timed 03/02/2024 5:24 AM CDT CBC WITHOUT DIFFERENTIAL Timed 024 5:24 AM CDT EGFR Timed 03/01/2024 11:38 PM CDT BASIC METABOLIC PANEL Timed 03/01/2024 11:38 PM CDT POCT GLUCOSE DEVICE Routine 03/01/2024 10:22 PM CDT POCT GLUCOSE DEVICE Routine 03/01/2024 7:23 PM CDT PEP THERAPY Routine 03/01/2024 6:00 PM CDT POCT GLUCOSE DEVICE Routine 03/01/2024 4:53 PM CDT PEP THERAPY Routine 03/01/2024 12:00 PM CDT POCT GLUCOSE DEVICE Routine 03/01/2024 11:52 AM CDT POCT GLUCOSE DEVICE Routine 03/01/2024 8:02 AM CDT POCT GLUCOSE DEVICE Routine 03/01/2024 3:46 AM CDT POCT GLUCOSE DEVICE Routine 03/01/2024 12:02 AM CDT POCT GLUCOSE DEVICE Routine 02/29/2024 7:30 PM CDT POCT GLUCOSE DEVICE Routine 02/29/2024 6:12 PM CDT POCT GLUCOSE DEVICE Routine 02/29/2024 4:33 PM CDT POCT GLUCOSE DEVICE Routine 02/29/2024 11:20 AM CDT CBC WITHOUT DIFFERENTIAL Routine 7:34 AM CDT POCT GLUCOSE DEVICE Routine 02/29/2024 7:18 AM CDT PEP THERAPY Routine 02/29/2024 6:00 AM CDT POCT GLUCOSE DEVICE Routine 02/29/2024 2:06 AM CDT POCT GLUCOSE DEVICE Routine 02/29/2024 1:00 AM CDT POCT GLUCOSE DEVICE Routine 02/29/2024 12:43 AM CDT POCT GLUCOSE DEVICE Routine 02/29/2024 12:08 AM CDT PEP THERAPY Routine 02/29/2024 12:00 AM CDT POCT GLUCOSE DEVICE Routine 02/28/2024 8:40 PM CDT PEP THERAPY Routine 02/28/2024 6:00 PM CDT POCT GLUCOSE DEVICE Routine 02/28/2024 4:55 PM CDT POCT GLUCOSE DEVICE Routine 02/28/2024 12:39 PM CDT POCT GLUCOSE DEVICE Routine 02/28/2024 12:02 PM CDT PEP THERAPY Routine 02/28/2024 12:00 PM CDT EGD 02/28/2024 11:38 AM CDT ESOPHAGOGASTRODUODENOSCOPY 02/27 11:37 AM CDT Dysphagia, unspecified type POCT GLUCOSE DEVICE Routine 02/28/2024 8:02 AM CDT PEP THERAPY Routine 02/28/2024 6:00 AM CDT EGFR Timed 02/28/2024 5:26 AM CDT CBC WITHOUT DIFFERENTIAL Routine 024 5:26 AM CDT LIPID PANEL Timed 02/28/2024 5:26 AM CDT BASIC METABOLIC PANEL Timed 02/28/2024 5:26 AM CDT POCT GLUCOSE DEVICE Routine 02/28/2024 4:09 AM CDT POCT GLUCOSE DEVICE Routine 02/28/2024 4:08 AM CDT POCT GLUCOSE DEVICE Routine 02/28/2024 12:34 AM CDT PEP THERAPY Routine 02/28/2024 12:00 AM CDT POCT GLUCOSE DEVICE Routine 02/27/2024 11:46 PM CDT POCT GLUCOSE DEVICE Routine 02/27/2024 11:17 PM CDT POCT GLUCOSE DEVICE Routine 02/27/2024 8:56 PM CDT XR CHEST PA LATERAL 2 VIEWS IP Routine 02/16 6:05 PM CDT PEP THERAPY Routine 02/27/2024 6:00 PM CDT POCT GLUCOSE DEVICE Routine 02/27/2024 5:04 PM CDT POCT GLUCOSE DEVICE Routine 02/27/2024 12:01 PM CDT PEP THERAPY Routine 02/27/2024 12:00 PM CDT POCT GLUCOSE DEVICE Routine 02/27/2024 8:00 AM CDT CBC WITHOUT DIFFERENTIAL Routine 024 6:10 AM CDT PEP THERAPY Routine 02/27/2024 6:00 AM CDT POCT GLUCOSE DEVICE Routine 02/27/2024 3:51 AM CDT POCT GLUCOSE DEVICE Routine 02/27/2024 2:15 AM CDT PEP THERAPY Routine 02/27/2024 12:00 AM CDT POCT GLUCOSE DEVICE Routine 02/26/2024 11:49 PM CDT POCT GLUCOSE DEVICE Routine 02/26/2024 8:36 PM CDT PEP THERAPY Routine 02/26/2024 6:00 PM CDT POCT GLUCOSE DEVICE Routine 02/26/2024 4:39 PM CDT PEP THERAPY Routine 02/26/2024 12:00 PM CDT POCT GLUCOSE DEVICE Routine 02/26/2024 11:39 AM CDT POCT GLUCOSE DEVICE Routine 02/26/2024 10:53 AM CDT POCT GLUCOSE DEVICE Routine 02/26/2024 10:30 AM CDT POCT GLUCOSE DEVICE Routine 02/26/2024 7:34 AM CDT PEP THERAPY Routine 02/26/2024 6:00 AM CDT EGFR Routine 02/26/2024 5:42 AM CDT CBC WITHOUT DIFFERENTIAL Routine 5:42 AM CDT BASIC METABOLIC PANEL Routine 02/26/2024 5:42 AM CDT POCT GLUCOSE DEVICE Routine 02/26/2024 4:22 AM CDT POCT GLUCOSE DEVICE Routine 02/26/2024 12:14 AM CDT PEP THERAPY Routine 02/26/2024 12:00 AM CDT POCT GLUCOSE DEVICE Routine 02/25/2024 7:22 PM CDT PEP THERAPY Routine 02/25/2024 6:00 PM CDT POCT GLUCOSE DEVICE Routine 02/25/2024 4:26 PM CDT TRANSTHORACIC ECHO (TTE) COMPLETE W DOPPLER/CF W CONTRAST Routine 02/25/2024 2:03 PM CDT PEP THERAPY Routine 02/25/2024 12:00 PM CDT POCT GLUCOSE DEVICE Routine 02/25/2024 11:47 AM CDT POCT GLUCOSE DEVICE Routine 02/25/2024 7:57 AM CDT PEP THERAPY Routine 02/25/2024 6:00 AM CDT POCT GLUCOSE DEVICE Routine 02/25/2024 4:21 AM CDT EGFR Routine 02/25/2024 2:22 AM CDT DIFFERENTIAL AUTO Routine 02/25/2024 2:22 AM CDT CBC WITH AUTO DIFFERENTIAL Routine 02/24 2:22 AM CDT COMPREHENSIVE METABOLIC PANEL Routine 2:22 AM CDT POCT GLUCOSE DEVICE Routine 02/25/2024 2:15 AM CDT PEP THERAPY Routine 02/25/2024 12:00 AM CDT POCT GLUCOSE DEVICE Routine 02/24/2024 11:22 PM CDT POCT GLUCOSE DEVICE Routine 02/24/2024 7:32 PM CDT PEP THERAPY Routine 02/24/2024 6:00 PM CDT POCT GLUCOSE DEVICE Routine 02/24/2024 4:57 PM CDT BLOOD CULTURE STAT 02/24/2024 1:18 PM CDT BLOOD CULTURE STAT 02/24/2024 12:56 PM CDT PEP THERAPY Routine 02/24/2024 12:00 PM CDT POCT GLUCOSE DEVICE Routine 02/24/2024 11:51 AM CDT POCT GLUCOSE DEVICE Routine 02/24/2024 8:22 AM CDT PEP THERAPY Routine 02/24/2024 6:00 AM CDT EGFR Routine 02/24/2024 4:56 AM CDT CBC WITHOUT DIFFERENTIAL Routine 4:56 AM CDT BASIC METABOLIC PANEL Routine 02/24/2024 4:56 AM CDT POCT GLUCOSE DEVICE Routine 02/24/2024 4:14 AM CDT POCT GLUCOSE DEVICE Routine 02/24/2024 12:00 AM CDT POCT GLUCOSE DEVICE Routine 02/23/2024 8:19 PM CDT PEP THERAPY Routine 02/23/2024 6:00 PM CDT POCT GLUCOSE DEVICE Routine 02/23/2024 4:48 PM CDT PEP THERAPY Routine 02/23/2024 12:00 PM CDT POCT GLUCOSE DEVICE Routine 02/23/2024 11:30 AM CDT MYCOPLASMA PNEUMONIAE PCR Routine 2023 8:53 AM CDT POCT GLUCOSE DEVICE Routine 02/23/2024 7:36 AM CDT EGFR Routine 02/23/2024 6:31 AM CDT CBC WITHOUT DIFFERENTIAL Routine 024 6:31 AM CDT BASIC METABOLIC PANEL Routine 02/23/2024 6:31 AM CDT PEP THERAPY Routine 02/23/2024 6:00 AM CDT POCT GLUCOSE DEVICE Routine 02/22/2024 7:17 PM CDT PEP THERAPY Routine 02/22/2024 6:00 PM CDT POCT GLUCOSE DEVICE Routine 02/22/2024 5:21 PM CDT STREP PNEUMONIAE AG, URINE Routine 02/21 3:05 PM CDT RESPIRATORY PATHOGEN PANEL Routine 02/21 3:05 PM CDT MRSA ONLY (STAPHYLOCOCCUS AUREUS) PCR Routine 02/22/2024 3:05 PM CDT LEGIONELLA ANTIGEN, URINE Routine 2023 3:05 PM CDT PEP THERAPY Routine 02/22/2024 2:32 PM CDT PEP THERAPY Routine 02/22/2024 2:32 PM CDT PEP THERAPY Routine 02/22/2024 2:32 PM CDT PEP THERAPY Routine 02/22/2024 2:32 PM CDT LACTATE STAT 02/22/2024 2:27 PM CDT XR CHEST PA LATERAL 2 VIEWS IP Routine 04/2024 12:46 PM CDT POCT GLUCOSE DEVICE Routine 02/22/2024 11:38 AM CDT BLOOD CULTURE STAT 02/22/2024 10:26 AM CDT BLOOD CULTURE STAT 02/22/2024 10:21 AM CDT POCT GLUCOSE DEVICE Routine 02/22/2024 7:46 AM CDT EGFR Routine 02/22/2024 5:18 AM CDT CBC WITHOUT DIFFERENTIAL Routine 024 5:18 AM CDT BASIC METABOLIC PANEL Routine 02/22/2024 5:18 AM CDT POCT GLUCOSE DEVICE Routine 02/22/2024 4:24 AM CDT POCT GLUCOSE DEVICE Routine 02/22/2024 1:58 AM CDT POCT GLUCOSE DEVICE Routine 02/22/2024 12:04 AM CDT POCT GLUCOSE DEVICE Routine 02/21/2024 7:44 PM CDT POCT GLUCOSE DEVICE Routine 02/21/2024 6:26 PM CDT POCT GLUCOSE DEVICE Routine 02/21/2024 4:04 PM CDT POCT GLUCOSE DEVICE Routine 02/21/2024 11:27 AM CDT EGFR Routine 02/21/2024 8:37 AM CDT CBC WITHOUT DIFFERENTIAL Routine 024 8:37 AM CDT MAGNESIUM Routine 02/21/2024 8:37 AM CDT BASIC METABOLIC PANEL Routine 02/21/2024 8:37 AM CDT POCT GLUCOSE DEVICE Routine 02/21/2024 8:01 AM CDT POCT GLUCOSE DEVICE Routine 02/20/2024 8:39 PM CDT POCT GLUCOSE DEVICE Routine 02/20/2024 7:25 PM CDT POCT GLUCOSE DEVICE Routine 02/20/2024 6:34 PM CDT SURGICAL PATHOLOGY Routine 02/20/2024 12:58 PM CDT Dysphagia, unspecified type Food impaction of esophagus, initial encounter POCT GLUCOSE DEVICE Routine 02/20/2024 12:43 PM CDT EGD 02/20/2024 12:37 PM CDT ESOPHAGOGASTRODUODENOSCOPY BIOPSY 02/20/2024 12:34 PM CDT Dysphagia, unspecified type Food impaction of esophagus, initial encounter EGFR Timed 02/20/2024 11:39 AM CDT THYROID FUNCTION CASCADE Routine 11:39 AM CDT CBC WITHOUT DIFFERENTIAL Timed 11:39 AM CDT T3, FREE Routine 02/20/2024 11:39 AM CDT T4, FREE Routine 02/20/2024 11:39 AM CDT MAGNESIUM Timed 02/20/2024 11:39 AM CDT HEMOGLOBIN A1C Routine 02/20/2024 11:39 AM CDT BASIC METABOLIC PANEL Timed 02/20/2024 11:39 AM CDT documented in this encounter Results * POCT glucose (03/07/2024 11:41 AM CDT) Glucose, POC 196 70 - 199 mg/dL Glucose comment 1 Use This Result [facility] Blood 03/07/2024 11:4 1 AM CDT 03/07/2024 11:41 AM CDT Gianna Dey MD LAB POCT ORDERABLES - DEVICE Final Result Performing Organization Address [facility] Co de Phone Number ZULE[facility] [address] [place] [address] * POCT glucose (03/07/2024 7:53 AM CDT) Glucose, POC 123 70 - 199 mg/dL Glucose comment 1 Use This Result [facility] Blood 03/07/2024 7:53 AM CDT 03/07/2024 7:53 AM CDT Gianna Dey MD LAB POCT ORDERABLES - DEVICE Final Result Performing Organization Address [facility] Co de Phone Number [address] [place] [address] * POCT glucose (03/07/2024 3:56 AM CDT) Glucose, POC 199 70 - 199 mg/dL Glucose comment 1 Use This Result [facility] Glucose comment 2 RN/MD Notified [facility] Blood 03/07/2024 3:56 AM CDT 03/07/2024 3:56 AM CDT Gianna Dey MD LAB POCT ORDERABLES - DEVICE Final Result Performing Organization Address [facility] Co de Phone Number [address] [place] [address] * POCT glucose (03/06/2024 11:31 PM CDT) Glucose, POC 195 70 - 199 mg/dL Glucose comment 1 Use This Result [facility] Glucose comment 2 RN/MD Notified ZULEMA Blood 03/06/2024 11:3 1 PM CDT 03/06/2024 11:31 PM CDT Gianna Dey MD LAB POCT ORDERABLES - DEVICE Final Result ZULEMA [address] [address] * POCT glucose (03/06/2024 8:03 PM CDT) Glucose, POC 154 70 - 199 mg/dL Glucose comment 1 Use This Result [facility] Glucose comment 2 RN/ Notified [facility] Blood 03/06/2024 8:03 PM CDT 03/06/2024 8:03 PM CDT Gianna Dey MD LAB POCT ORDERABLES - DEVICE Final Result [facility] [place] [address] * POCT glucose (03/06/2024 5:49 PM CDT) Glucose, POC 175 70 - 199 mg/dL Glucose comment 1 Use This Result [facility] Blood 03/06/2024 5:49 PM CDT 03/06/2024 5:49 PM CDT Gianna Dey MD LAB POCT ORDERABLES - DEVICE Final Result [address] [place] [address] * (ABNORMAL) POCT glucose (03/06/2024 11:31 AM CDT) Glucose, POC 246(H) 70 - 199 mg/dL Glucose comment 1 Use This Result [facility] Glucose comment 2 RN/MD Notified [facility] Blood 03/06/2024 11:3 1 AM CDT 03/06/2024 11:31 AM CDT Gianna Dey MD LAB POCT ORDERABLES - DEVICE Final Result Performing Organization Address [facility] Co de Phone Number [address] [place] [address] * POCT glucose (03/06/2024 8:15 AM CDT) [facility] Glucose, POC 194 70 - 199 mg/dL Glucose comment 1 Use This Result [facility] Glucose comment 2 RN/ Notified [facility] Blood 03/06/2024 8:15 AM CDT 03/06/2024 8:15 AM CDT Gianna Dey MD LAB POCT ORDERABLES - DEVICE Final Result Performing Organization Address [facility] [[email or web address]] de Phone Number [address] [address] * (ABNORMAL) CBC without differential (03/06/2024 5:05 AM CDT) [facility] WBC 13.2(H) 3.8 - 9.9 K/cumm Hgb 10.7(L) 13.0 - 17.5 g/dL [facility] Hct 31.9(L) 38.9 - 50.3 % [facility] Plt 237 150 - 400 K/cumm [facility] MPV 9.9 9.1 - 12.3 fL [facility] RBC 3.01(L) 4.30 - 5.80 M/cumm [facility] MCV 106.0(H) 81.3 - 96.4 fL [facility] MCH 35.5(H) 27.1 - 33.3 pg [facility] MCHC 33.5 32.3 - 35.7 g/dL [facility] RDW CV 17.2(H) 11.1 - 14.9 % [facility] RDW SD 67.2(H) 35.7 - 48.1 fL [facility] NRBC abs 0.12(H) 0.00 - 0.01 K/cumm [facility] Blood 03/06/2024 5:05 AM CDT 03/06/2024 5:16 AM CDT Diana Rivera DO LAB BLOOD ORDERABLES Final Resul t Performing Organization Address [facility] Co de Phone Number Z[facility]LE[facility] [address] [place] [address] * (ABNORMAL) POCT glucose (03/06/2024 4:11 AM CDT) Glucose, POC 267(H) 70 - 199 mg/dL Glucose comment 1 Use This Result [facility] Blood 03/06/2024 4:11 AM CDT 03/06/2024 4:11 AM CDT Gianna Dey MD LAB POCT ORDERABLES - DEVICE Final Result Performing Organization Address [facility] [[email or web address]] de Phone Number ZULEMA [address] [place] [address] * (ABNORMAL) POCT glucose (03/06/2024 1:41 AM CDT) Glucose, POC 286(H) 70 - 199 mg/dL Glucose comment 1 Use This Result [facility] Blood 03/06/2024 1:41 AM CDT 03/06/2024 1:41 AM CDT us Gianna Dey MD LAB POCT ORDERABLES - DEVICE Final Result Performing Organization Address [facility] Co de Phone Number ZULE[facility] [address] [place] [address] * eGFR (03/06/2024 12:16 AM CDT) Pathologist [facility] eGFR >90 >=60 mL/min/1. 73 m2 Comment: [...] interpretive data was last reviewed 2021. Blood 03/06/2024 12:1 6 AM CDT 03/06/2024 12:39 AM CDT us Diana Rivera DO LAB BLOOD ORDERABLES Final Resul t [facility] [address] [facility] [place] [employer] [address] * Basic metabolic panel (03/06/2024 12:16 AM CDT) [facility] Sodium 136 135 - 145 mmol/L Potassium, pl 4.7 3.3 - 4.9 mmol/L [facility] Chloride 101 97 - 110 mmol/L [facility] CO2 27 22 - 32 mmol/L [facility] Anion gap 8 2 - 15 mmol/L [facility] BUN 23 6 - 25 mg/dL [facility] Creatinine 0.94 0.80 - 1.30 mg/dL [facility] Glucose 182 70 - 199 mg/dL [facility] Comment: Interpretive Data Fasting glucose [...] 2022. Calcium 8.6 8.5 - 10.3 mg/dL [facility] Blood 03/06/2024 12:1 6 AM CDT 03/06/2024 12:39 AM CDT us Diana Rivera DO LAB BLOOD ORDERABLES Final Resul t Performing Organization Address City/[facility]/ZIP Co de Phone Number [facility] [address] [address] * (ABNORMAL) POCT glucose (03/05/2024 11:49 PM CDT) [facility] Glucose, POC 212(H) 70 - 199 mg/dL Glucose comment 1 Use This Result [facility] Blood 03/05/2024 11:4 9 PM CDT 03/05/2024 11:49 PM CDT Gianna Dey MD LAB POCT ORDERABLES - DEVICE Final Result Performing Organization Address City/State/[facility] Co de Phone Number [address] [place] [address] * (ABNORMAL) POCT glucose (03/05/2024 8:23 PM CDT) Glucose, POC 222(H) 70 - 199 mg/dL Blood 03/05/2024 8:23 PM CDT 03/05/2024 8:23 PM CDT Gianna Dey MD LAB POCT ORDERABLES - DEVICE Final Result Performing Organization Address [facility] Co de Phone Number [address] [place] [address] * POCT glucose (03/05/2024 4:25 PM CDT) Glucose, POC 185 70 - 199 mg/dL Glucose comment 1 Use This Result [facility] Glucose comment 2 RN/MD Notified [facility] Blood 03/05/2024 4:25 PM CDT 03/05/2024 4:25 PM CDT Gianna Dey MD LAB POCT ORDERABLES - DEVICE Final Result Performing Organization Address [facility] [facility] [[email or web address]] de Phone Number [address] [place] [address] * POCT glucose (03/05/2024 11:10 AM CDT) Glucose, POC 83 70 - 199 mg/dL Blood 03/05/2024 11:1 0 AM CDT 03/05/2024 11:10 AM CDT Gianna Dey MD LAB POCT ORDERABLES - DEVICE Final Result Performing Organization Address [facility] Co de Phone Number [address] [place] [address] * (ABNORMAL) Manual Differential (03/05/2024 7:49 AM CDT) Pathologist [facility] Differential Manual Cells Counted 100 [facility] Neutrophil abs 10.2(H) 1.5 - 6.5 K/cumm [facility] Lymphocyte abs 2.4 0.8 - 3.3 K/cumm [facility] Monocyte abs 1.3(H) 0.2 - 0.8 K/cumm [facility] Eosinophil abs 0.1 0.0 - 0.5 K/cumm [facility] Neutrophil pct 73.0 % [facility] Comment: Interpretive Data Percent cell count reference ranges are not reported, since discordance with absolute values may lead to misinterpretation of CBC data. Current Interpretive Data was last revised on 2018. Lymphocyte pct 16.0 % [facility] Comment: Interpretive Data Percent cell count reference ranges are not reported, since discordance with absolute values may lead to misinterpretation of CBC data. Current Interpretive Data was last revised on 2018. Monocyte pct 9.0 % [facility] Comment: Interpretive Data Percent cell count reference ranges are not reported, since discordance with absolute values may lead to misinterpretation of CBC data. Current Interpretive Data was last revised on 2018. Eosinophil pct 1.0 % [facility] Comment: Interpretive Data Percent cell count reference ranges are not reported, since discordance with absolute values may lead to misinterpretation of CBC data. Current Interpretive Data was last revised on 2018. Variant lymph pct 1.0(H) 0.0 - 0.0 % [facility] RBC morphology Present(A) [facility] Polychromasia 3-7/HPF(A) [facility] Poikilocytosis Moderate(A) [facility] Macrocytes 8-15/HPF(A) [facility] Elliptocytes 3-7/HPF(A) [facility] Platelet estimate Automated Count Confirmed [facility] Blood 03/05/2024 7:49 AM CDT 03/05/2024 8:30 AM CDT us Osmar Orta MD LAB BLOOD ORDERABLES Final R esult [facility] [address] [facility] Department [place] [address] * eGFR (03/05/2024 7:49 AM CDT) eGFR 90 >=60 mL/min/1. 73 m2 Comment: Interpretive Data [...] interpretive data was last reviewed 2021. Blood 03/05/2024 7:49 AM CDT 03/05/2024 8:30 AM CDT Osmar Orta MD LAB BLOOD ORDERABLES Final R esult [facility] [address] [facility] Department [place] [address] * (ABNORMAL) Comprehensive metabolic panel (03/05/2024 7:49 AM CDT) Sodium 136 135 - 145 mmol/L Potassium, pl 4.3 3.3 - 4.9 mmol/L [facility] Chloride 101 97 - 110 mmol/L [facility] CO2 27 22 - 32 mmol/L [facility] Anion gap 8 2 - 15 mmol/L [facility] BUN 25 6 - 25 mg/dL [facility] Creatinine 0.98 0.80 - 1.30 mg/dL [facility] Glucose 93 70 - 199 mg/dL [facility] Comment: Interpretive Data Fasting glucose [...] 8.9 8.5 - 10.3 mg/dL [facility] Bilirubin, total 0.3 0.1 - 1.2 mg/dL [facility] Protein, pl 6.9 6.5 - 8.5 g/dL [facility] Albumin 3.3(L) 3.5 - 5.0 g/dL [facility] Alk phos 148(H) 40 - 130 Units/L [facility] ALT 36 7 - 55 Units/L [facility] AST 64(H) 10 - 50 Units/L [facility] Blood 03/05/2024 7:49 AM CDT 03/05/2024 8:30 AM CDT us Osmar Orta MD LAB BLOOD ORDERABLES Final R esult [facility] [address] [facility] Department [place] [address] * (ABNORMAL) CBC with auto differential (03/05/2024 7:49 AM CDT) Pathologist [facility] WBC 14.0(H) 3.8 - 9.9 K/cumm Hgb 11.8(L) 13.0 - 17.5 g/dL [facility] Hct 35.7(L) 38.9 - 50.3 % [facility] Plt 281 150 - 400 K/cumm [facility] MPV 9.9 9.1 - 12.3 fL [facility] RBC 3.31(L) 4.30 - 5.80 M/cumm [facility] MCV 107.9(H) 81.3 - 96.4 fL [facility] MCH 35.6(H) 27.1 - 33.3 pg [facility] MCHC 33.1 32.3 - 35.7 g/dL [facility] RDW CV 17.7(H) 11.1 - 14.9 % [facility] RDW SD 69.6(H) 35.7 - 48.1 fL [facility] NRBC abs 0.26(H) 0.00 - 0.01 K/cumm [facility] Blood 03/05/2024 7:49 AM CDT 03/05/2024 8:30 AM CDT us Osmar Orta MD LAB BLOOD ORDERABLES Final R esult Performing Organization Address [facility] Co de Phone Number [address] [place] [address] * POCT glucose (03/05/2024 7:37 AM CDT) Glucose, POC 110 70 - 199 mg/dL Blood 03/05/2024 7:37 AM CDT 03/05/2024 7:37 AM CDT Gianna Dey MD LAB POCT ORDERABLES - DEVICE Final Result Performing Organization Address [facility] Co de Phone Number [address] [place] [address] * POCT glucose (03/05/2024 12:36 AM CDT) Glucose, POC 147 70 - 199 mg/dL Glucose comment 1 Use This Result [facility] Glucose comment 2 RN/MD Notified [facility] Blood 03/05/2024 12:3 6 AM CDT 03/05/2024 12:36 AM CDT Gianna Dey MD LAB POCT ORDERABLES - DEVICE Final Result Performing Organization Address [facility] Co de Phone Number Z[facility]LE[facility] [address] [place] [address] * (ABNORMAL) POCT glucose (03/04/2024 8:50 PM CDT) Glucose, POC 231(H) 70 - 199 mg/dL Blood 03/04/2024 8:50 PM CDT 03/04/2024 8:50 PM CDT Gianna Dey MD LAB POCT ORDERABLES - DEVICE Final Result Performing Organization Address [facility] Co de Phone Number ZULEMA [address] [place] [address] * POCT glucose (03/04/2024 4:49 PM CDT) Glucose, POC 173 70 - 199 mg/dL Glucose comment 1 Use This Result [facility] Blood 03/04/2024 4:49 PM CDT 03/04/2024 4:49 PM CDT Gianna Dey MD LAB POCT ORDERABLES - DEVICE Final Result Performing Organization Address [facility] Co de Phone Number [address] [place] [address] * HIV 1/2 Antibody plus p24 Antigen Blood (03/04/2024 12:58 PM CDT) Pathologist [facility] HIV 1/2 ab + p24 ag Nonreactive Nonreactive Comment:Nonreactive for HIV- 1 antigen and HIV-1/HIV-2 antibodies. No laboratory evidence of HIV infection. If acute HIV infection is suspected, consider testing for HIV-1 RNA. Current interpretive data was last revised on 22. Blood 03/04/2024 12:5 8 PM CDT 03/04/2024 1:22 PM CDT us Osmar Orta MD LAB MICROBIOLOGY - GENERAL O RDERABLES Final Result Performing Organization Address [facility] [[email or web address]] de Phone Number [address] [address] * (ABNORMAL) POCT glucose (03/04/2024 11:56 AM CDT) Glucose, POC 232(H) 70 - 199 mg/dL Glucose comment 1 Use This Result [facility] Blood 03/04/2024 11:5 6 AM CDT 03/04/2024 11:56 AM CDT Gianna Dey MD LAB POCT ORDERABLES - DEVICE Final Result Performing Organization Address [facility] [[email or web address]] de Phone Number [address] [address] * POCT glucose (03/04/2024 7:42 AM CDT) Glucose, POC 117 70 - 199 mg/dL Glucose comment 1 Use This Result [facility] Blood 03/04/2024 7:42 AM CDT 03/04/2024 7:42 AM CDT Gianna Dey MD LAB POCT ORDERABLES - DEVICE Final Result Performing Organization Address [facility] [[email or web address]] de Phone Number [address] [place] [address] * eGFR (03/04/2024 5:11 AM CDT) eGFR >90 >=60 mL/min/1. 73 [...] interpretive data was last reviewed 2021. Blood 03/04/2024 5:11 AM CDT 03/04/2024 5:26 AM CDT us Osmar Orta MD LAB BLOOD ORDERABLES Final R esult [facility] [address] [facility] Department [place] [address] * (ABNORMAL) Manual Differential (03/04/2024 5:11 AM CDT) Differential Manual Cells Counted 100 [facility] Neutrophil abs 10.0(H) 1.5 - 6.5 K/cumm [facility] Imm gran abs 0.2(H) 0.0 - 0.1 K/cumm [facility] Lymphocyte abs 6.3(H) 0.8 - 3.3 K/cumm [facility] Monocyte abs 0.3 0.2 - 0.8 K/cumm [facility] Basophil abs 0.2(H) 0.0 - 0.1 K/cumm [facility] Neutrophil pct 59.0 % [facility] Comment: Interpretive Data Percent cell count reference ranges are not reported, since discordance with absolute values may lead to misinterpretation of CBC data. Current Interpretive Data was last revised on 2018. Lymphocyte pct 37.0 % [facility] Comment: Interpretive Data Percent cell count reference ranges are not reported, since discordance with absolute values may lead to misinterpretation of CBC data. Current Interpretive Data was last revised on 2018. Monocyte pct 2.0 % [facility] Comment: Interpretive Data Percent cell count reference ranges are not reported, since discordance with absolute values may lead to misinterpretation of CBC data. Current Interpretive Data was last revised on 2018. Basophil pct 1.0 % [facility] Comment: Interpretive Data Percent cell count reference ranges are not reported, since discordance with absolute values may lead to misinterpretation of CBC data. Current Interpretive Data was last revised on 2018. Metamyelocyte pct 1.0 % [facility] Anisocytosis Marked(A) [facility] Poikilocytosis Moderate(A) [facility] Macrocytes > 15/HPF(A) [facility] Elliptocytes 3-7/HPF(A) [facility] Target cells 3-7/HPF(A) [facility] Platelet estimate Automated Count Confirmed [facility] Blood 03/04/2024 5:11 AM CDT 03/04/2024 5:26 AM CDT us Osmar Orta MD LAB BLOOD ORDERABLES Final R esult [facility] [address] [facility] Department of Laboratories [place], [place] [id number] * (ABNORMAL) CBC with auto differential (03/04/2024 5:11 AM CDT) WBC 17.0(H) 3.8 - 9.9 K/cumm Hgb 12.0(L) 13.0 - 17.5 g/dL [facility] Hct 35.6(L) 38.9 - 50.3 % [facility] Plt 321 150 - 400 K/cumm [facility] MPV 9.6 9.1 - 12.3 fL [facility] RBC 3.35(L) 4.30 - 5.80 M/cumm [facility] MCV 106.3(H) 81.3 - 96.4 fL [facility] MCH 35.8(H) 27.1 - 33.3 pg [facility] MCHC 33.7 32.3 - 35.7 g/dL [facility] RDW CV 17.7(H) 11.1 - 14.9 % [facility] RDW SD 68.4(H) 35.7 - 48.1 fL [facility] NRBC abs 0.51(H) 0.00 - 0.01 K/cumm [facility] Blood 03/04/2024 5:11 AM CDT 03/04/2024 5:26 AM CDT us Osmar Orta MD LAB BLOOD ORDERABLES Edited Result - Final [facility] [address] [facility] Department [place] [address] * (ABNORMAL) Comprehensive metabolic panel (03/04/2024 5:11 AM CDT) Sodium 136 135 - 145 mmol/L Potassium, pl 5.4(H) 3.3 - 4.9 mmol/L [facility] Comment:Hemolyzed; Potassium value may be falsely elevated by as much as 1.0 mmol/L. Suggest redraw and reanalysis. Chloride 98 97 - 110 mmol/L [facility] CO2 29 22 - 32 mmol/L [facility] Anion gap 9 2 - 15 mmol/L [facility] BUN 23 6 - 25 mg/dL [facility] Creatinine 0.96 0.80 - 1.30 mg/dL [facility] Glucose 145 70 - 199 mg/dL [facility] Comment: Interpretive Data Fasting glucose [...] 2022. Calcium 9.2 8.5 - 10.3 mg/dL [facility] Bilirubin, total 0.2 0.1 - 1.2 mg/dL [facility] Protein, pl 7.4 6.5 - 8.5 g/dL [facility] Albumin 3.6 3.5 - 5.0 g/dL [facility] Alk phos 132(H) 40 - 130 Units/L [facility] ALT 26 7 - 55 Units/L [facility] AST 58(H) 10 - 50 Units/L [facility] Comment:Hemolyzed; result ma y be falsely elevated Blood 03/04/2024 5:11 AM CDT 03/04/2024 5:26 AM CDT us Osmar Orta MD LAB BLOOD ORDERABLES Final R esult [facility] [address] [facility] Department [place] [address] * eGFR (03/04/2024 12:05 AM CDT) eGFR 77 >=60 mL/min/1. 73 m2 Comment: Interpretive Data [...] Inclusion of Race in Diagnosing Kidney Disease, JOANNE 2020). The CKD-EPI equation should not be used for patients with unstable renal function and has not been validated in children and those over 70. Current interpretive data was last reviewed 2021. Blood 03/04/2024 12:0 5 AM CDT 03/04/2024 12:33 AM CDT Diana Rivera DO LAB BLOOD ORDERABLES Final Resul t [facility] [address] [facility] Department [place] [address] * (ABNORMAL) Basic metabolic panel (03/04/2024 12:05 AM CDT) Sodium 136 135 - 145 mmol/L Potassium, pl 5.1(H) 3.3 - 4.9 mmol/L [facility] Comment:Hemolyzed; Potassium value may be falsely elevated by as much as 1.0 mmol/L. Suggest redraw and reanalysis. Chloride 98 97 - 110 mmol/L [facility] CO2 27 22 - 32 mmol/L [facility] Anion gap 11 2 - 15 mmol/L [facility] BUN 25 6 - 25 mg/dL [facility] Creatinine 1.12 0.80 - 1.30 mg/dL [facility] Glucose 158 70 - 199 mg/dL [facility] Comment: Delta - Results Reviewed Interpretive Data [...] 2022. Calcium 9.2 8.5 - 10.3 mg/dL [facility] Blood 03/04/2024 12:0 5 AM CDT 03/04/2024 12:33 AM CDT Diana Rivera DO LAB BLOOD ORDERABLES Final Resul t Performing Organization Address [facility] [[email or web address]] de Phone Number [address] [address] * POCT glucose (03/03/2024 11:07 PM CDT) Glucose, POC 154 70 - 199 mg/dL Glucose comment 1 Use This Result [facility] Glucose comment 2 RN/MD Notified [facility] Blood 03/03/2024 11:0 7 PM CDT 03/03/2024 11:07 PM CDT Gianna Dey MD LAB POCT ORDERABLES - DEVICE Final Result Performing Organization Address [facility] de Phone Number [address] [address] * (ABNORMAL) POCT glucose (03/03/2024 7:06 PM CDT) Glucose, POC 225(H) 70 - 199 mg/dL Blood 03/03/2024 7:06 PM CDT 03/03/2024 7:06 PM CDT Gianna Dey MD LAB POCT ORDERABLES - DEVICE Final Result Performing Organization Address [facility] [[email or web address]] de Phone Number [address] [address] * Urinalysis reflex to microscopic (03/03/2024 6:14 PM CDT) Color, ur Straw Yellow Clarity, ur Clear Clear [facility] Specific gravity, ur 1.008 1.003 - 1.030 [facility] pH, urine 7.0 [facility] Comment: Interpretive Data ? Urine pH is affected by diet, medications, systemic acid-base disturbances, and renal tubular function. ??pH may affect urinary stone formation. ??For example, urine pH below 6.0 may help reduce the tendency for calcium phosphate stones and pH greater than 6.0 may reduce the tendency for uric acid stone formation. Source: [facility] Current Interpretive Data was last revised on 2017 Protein, ur ql Negative Negative [facility] Glucose, ur ql Negative Negative [facility] Ketones, ur Negative Negative [facility] Bilirubin, ur Negative Negative [facility] Blood, ur Negative Negative [facility] Urobilinogen, ur <2.0 <2.0 mg/dL [facility] Nitrite, ur Negative Negative [facility] Leukocyte esterase, ur Negative Negative [facility] UA reflex comment Reflex conditions for microscopic UA not met. [facility] Urine 03/03/2024 6:14 PM CDT 03/03/2024 6:38 PM CDT Osmar Orta MD LAB URINE ORDERABLES Final R esult Performing Organization Address [facility] Co de Phone Number [address] [place] [address] * POCT glucose (03/03/2024 5:05 PM CDT) Glucose, POC 183 70 - 199 mg/dL Glucose comment 1 Use This Result [facility] Blood 03/03/2024 5:05 PM CDT 03/03/2024 5:05 PM CDT us Gianna Dey MD LAB POCT ORDERABLES - DEVICE Final Result Performing Organization Address [facility] Co de Phone Number [address] [place] [address] * Blood culture Blood (03/03/2024 4:57 PM CDT) Report Final Report: No growth Comment:Testing performed by : [facility], [address], [place]., [address] Blood 03/03/2024 4:57 PM CDT 03/03/2024 7:51 PM CDT Narrative ZULEMA CHAVEZ - 03/08/2024 7:00 AM CDT From a different site than [...] organism identification may be performed using the [employer] Gram-Positive Blood Culture Assay. This assay detects microbial DNA in positive blood culture broth via hybridization of target DNA to capture oligonucleotides on a microarray. This assay has been cleared by the [place] Food and Drug Administration and its performance characteristics have been verified by the [facility] Microbiology Laboratory. 5. ?For questions about this culture, contact the Microbiology Laboratory at [phone]. Interpretive data was last revised on 2020. Osmar Orta MD LAB MICROBIOLOGY - GENERAL O YONYERABLES Final Result [facility] [address] [facility] Department [place] [address] * Blood culture Blood Arm, left (03/03/2024 4:11 PM CDT) Report Final Report: No growth Comment:Testing performed by : [facility], [address], [place]., [address] Blood (Arm, left) 03/03/2024 4:11 PM CDT 03/03/2024 6:23 PM CDT Narrative ZULEMA CHAVEZ - 03/08/2024 7:00 AM CDT Collection->Peripheral 1. ?Blood cultures [...] organism identification may be performed using the [employer] Gram-Positive Blood Culture Assay. This assay detects microbial DNA in positive blood culture broth via hybridization of target DNA to capture oligonucleotides on a microarray. This assay has been cleared by the [place] Food and Drug Administration and its performance characteristics have been verified by the [facility] Microbiology Laboratory. 5. ?For questions about this culture, contact the Microbiology Laboratory at [phone]. Interpretive data was last revised on 2020. Osmar Orta MD LAB MICROBIOLOGY - GENERAL O RDERABLES Final Result [facility] [address] [facility] Department of Laboratories [place], [place] [id number] * MRSA Only (Staphylococcus aureus) PCR Nasal (03/03/2024 11:56 AM CDT) [facility] PCR Scrn, Methicillin resistant Staphylococcus aureus (MRSA) Not Detected Not Detected Comment: Interpretive Data Testing performed using Nucleic Acid Amplification with the [employer] Xpert MRSA NxG Assay. This assay detects target DNA from mecA, mecC and the SCCmec insertion site of Staphylococcus aureus using Real-Time PCR and has been cleared by the FDA. Performance characteristics have been verified by the [facility] Laboratory. Current Interpretive Data was last revised on 2023 Nasal 03/03/2024 11:5 6 AM CDT 03/03/2024 12:24 PM CDT Osmar Orta MD LAB MICROBIOLOGY - GENERAL O RDERABLES Final Result Performing Organization Address [facility] Co de Phone Number [address] [address] * POCT glucose (03/03/2024 11:55 AM CDT) Glucose, POC 169 70 - 199 mg/dL Glucose comment 1 Use This Result [facility] Blood 03/03/2024 11:5 5 AM CDT 03/03/2024 11:55 AM CDT Gianna Dey MD LAB POCT ORDERABLES - DEVICE Final Result Performing Organization Address [facility] Co de Phone Number [address] [address] * POCT glucose (03/03/2024 7:38 AM CDT) Glucose, POC 172 70 - 199 mg/dL Glucose comment 1 Use This Result [facility] Blood 03/03/2024 7:38 AM CDT 03/03/2024 7:38 AM CDT Gianna Dey MD LAB POCT ORDERABLES - DEVICE Final Result Performing Organization Address [facility] Co de Phone Number [address] [address] * POCT glucose (03/03/2024 5:53 AM CDT) Glucose, POC 96 70 - 199 mg/dL Glucose comment 1 Use This Result [facility] Blood 03/03/2024 5:53 AM CDT 03/03/2024 5:53 AM CDT Gianna Dey MD LAB POCT ORDERABLES - DEVICE Final Result Performing Organization Address [facility]/ZIP Co de Phone Number ZULEMA [address] [place] [address] * POCT glucose (03/03/2024 4:30 AM CDT) Pathologist [facility] Glucose, POC 112 70 - 199 mg/dL Glucose comment 1 Use This Result [facility] Blood 03/03/2024 4:30 AM CDT 03/03/2024 4:30 AM CDT Gianna Dey MD LAB POCT ORDERABLES - DEVICE Final Result Performing Organization Address [facility] Co de Phone Number ZULEMA [address] [address] * eGFR (03/03/2024 4:23 AM CDT) Pathologist [facility] eGFR >90 >=60 mL/min/1. 73 m2 Comment: [...] interpretive data was last reviewed 2021. Blood 03/03/2024 4:23 AM CDT 03/03/2024 5:21 AM CDT us Osmar Orta MD LAB BLOOD ORDERABLES Final R esult [facility] [address] [facility] Department [place] [address] * (ABNORMAL) Manual Differential (03/03/2024 4:23 AM CDT) Differential Manual Cells Counted 100 [facility] Neutrophil abs 11.0(H) 1.5 - 6.5 K/cumm [facility] Lymphocyte abs 8.1(H) 0.8 - 3.3 K/cumm [facility] Monocyte abs 1.7(H) 0.2 - 0.8 K/cumm [facility] Neutrophil pct 53.0 % [facility] Comment: Interpretive Data Percent cell count reference ranges are not reported, since discordance with absolute values may lead to misinterpretation of CBC data. Current Interpretive Data was last revised on 2018. Lymphocyte pct 39.0 % [facility] Comment: Interpretive Data Percent cell count reference ranges are not reported, since discordance with absolute values may lead to misinterpretation of CBC data. Current Interpretive Data was last revised on 2018. Monocyte pct 8.0 % [facility] Comment: Interpretive Data Percent cell count reference ranges are not reported, since discordance with absolute values may lead to misinterpretation of CBC data. Current Interpretive Data was last revised on 2018. RBC morphology Consistent with RBC Indicies [facility] Platelet estimate Automated Count Confirmed [facility] Blood 03/03/2024 4:2 3 AM CDT 03/03/2024 5:21 AM CDT us Osmar Orta MD LAB BLOOD ORDERABLES Final R esult [facility] [address] [facility] Department [place] [address] * (ABNORMAL) Comprehensive metabolic panel (03/03/2024 4:23 AM CDT) Sodium 138 135 - 145 mmol/L Potassium, pl 4.5 3.3 - 4.9 mmol/L [facility] Comment:Hemolyzed; Potassium value may be falsely elevated by as much as 1.0 mmol/L. Suggest redraw and reanalysis. Chloride 102 97 - 110 mmol/L [facility] CO2 25 22 - 32 mmol/L [facility] Anion gap 11 2 - 15 mmol/L [facility] BUN 26(H) 6 - 25 mg/dL [facility] Creatinine 0.82 0.80 - 1.30 mg/dL [facility] Glucose 53(C) 70 - 199 mg/dL [facility] Comment: Delta - Results Reviewed ??Critical Result called to and read back by [email or web address], DATE: 2024-03-03 06:18:02 BY: [email or web address] Interpretive Data Fasting glucose >/= 126 mg/dl [...] 9.0 8.5 - 10.3 mg/dL [facility] Bilirubin, total 0.2 0.1 - 1.2 mg/dL [facility] Protein, pl 6.7 6.5 - 8.5 g/dL [facility] Albumin 3.6 3.5 - 5.0 g/dL [facility] Alk phos 122 40 - 130 Units/L [facility] ALT 18 7 - 55 Units/L [facility] AST 56(H) 10 - 50 Units/L [facility] Comment:Hemolyzed; result ma y be falsely elevated Blood 03/03/2024 4:23 AM CDT 03/03/2024 5:21 AM CDT Osmar Orta MD LAB BLOOD ORDERABLES Final R esult Performing Organization Address [facility] Co de Phone Number [facility] [address] [place] [address] * (ABNORMAL) CBC with auto differential (03/03/2024 4:23 AM CDT) [facility] WBC 20.8(H) 3.8 - 9.9 K/cumm Hgb 11.6(L) 13.0 - 17.5 g/dL [facility] Hct 36.1(L) 38.9 - 50.3 % [facility] Plt 324 150 - 400 K/cumm [facility] MPV 9.9 9.1 - 12.3 fL [facility] RBC 3.31(L) 4.30 - 5.80 M/cumm [facility] MCV 109.1(H) 81.3 - 96.4 fL [facility] MCH 35.0(H) 27.1 - 33.3 pg [facility] MCHC 32.1(L) 32.3 - 35.7 g/dL [facility] RDW CV 17.6(H) 11.1 - 14.9 % [facility] RDW SD 70.2(H) 35.7 - 48.1 fL [facility] NRBC abs 0.63(H) 0.00 - 0.01 K/cumm [facility] Blood 03/03/2024 4:23 AM CDT 03/03/2024 5:21 AM CDT Osmar Orta MD LAB BLOOD ORDERABLES Final R esult Performing Organization Address [facility]/ZIP Co de Phone Number ZULEMA [address] [place] [address] * POCT glucose (03/03/2024 12:54 AM CDT) Glucose, POC 157 70 - 199 mg/dL Glucose comment 1 Use This Result [facility] Blood 03/03/2024 12:5 4 AM CDT 03/03/2024 12:54 AM CDT Gianna Dey MD LAB POCT ORDERABLES - DEVICE Final Result Performing Organization Address [email or web address]] de Phone Number LESLIE[address] [place] [address] * POCT glucose (03/02/2024 7:14 PM CDT) Glucose, POC 170 70 - 199 mg/dL Glucose comment 1 Use This Result [facility] Blood 03/02/2024 7:14 PM CDT 03/02/2024 7:14 PM CDT Gianna Dey MD LAB POCT ORDERABLES - DEVICE Final Result Performing Organization Address [facility] [[email or web address]] de Phone Number LESLIE[address] [address] * CT Chest WO Contrast (03/02/2024 6:51 PM CDT) Anatomical Region Laterality Modality Body N/A Computed Tomogra phy 03/02/2024 7:37 PM CDT Narrative 03/02/2024 7:43 PM CDT EXAM DESCRIPTION: ?? CT CHEST WO CONTRAST REASON FOR STUDY: ?? Leukocytosis status post pneumoniae and MSSA bacteremia. ?? Immunosuppressed state ?? Leukocytosis status post pneumoniae and MSSA bacteremia. ??Immunosuppressed state ? TECHNIQUE: CT scan of the chest performed without intravenous contrast using helical scanning technique. Reconstructed coronal and sagittal MPR images reviewed. ??All images stored on PACS. ??Automated exposure control was used as a dose optimization technique for this examination. COMPARISON: ?? 04/03/2022 REFERENCE: Per ACR white paper recommendations, unless otherwise specified no follow-up imaging is recommended for incidental renal and adrenal lesions per consensus recommendations based on imaging criteria. Further lab evaluation could be pursued based on clinical findings. FINDINGS: LUNGS: ??Coarse opacity in the wjlcg-quczymh-half-upper lungs are new since 04/03/2022, superimposed on scarring in the right apex. ??These are favored to be infectious/inflammatory. ??Spiculated nodule in the anterior right mid lung previously on image 72/188, now on image 54/132 appears slightly smaller compared to the prior. ??New small nodule in the posterior left lung image 43/132 measures 7 x 5 mm and is slightly spiculated. ??Advanced background emphysema. ??Small amount of dependent debris in the left greater than right mainstem bronchi. ?? HEART/MEDIASTINUM/AIMEE: ??Small heart size reflects hyperinflation. ??Coronary artery calcification mild wall thickening/haziness of the mid esophagus may be similar to the prior. ??Thoracic inlet unremarkable. UPPER ABDOMEN: ??Cholecystectomy MUSCULOSKELETAL: ??Unremarkable. ?? CHEST WALL: ??Unremarkable. ?? IMPRESSION: Coarse opacities in the cptxw-nhkakxb-daza-upper lungs are new since 04/03/2022, favored to be infectious/inflammatory. Spiculated nodule in the anterior right mid lung appears slightly smaller compared to the prior. New small nodule in the posterior left lung measures 7 x 5 mm and is slightly spiculated. 3 month follow-up recommended. Mild wall thickening/haziness of the mid esophagus may be similar to the prior. EGD correlation could be considered. Pulmonary nodule recommendation: Per Fleischner Society Guidelines, non-contrast chest CT at 3-6 months is recommended. If the nodules are stable at time of repeat CT, then future CT at 18-24 months (from today's scan) is considered optional for low-risk patients, but is recommended for high-risk patients. ? THIS IS AN ELECTRONICALLY VERIFIED FINAL REPORT 03/02/2024 7:43 PM - Electronically signed by ??Kaushik FERREIRA D: ??03/02/2024 7:43 PM T: Report ID: [id number] Reading Location: ??[id number] Procedure Note Kaushik Nur MD - 03/02/2024 EXAM DESCRIPTION: CT CHEST WO CONTRAST REASON FOR STUDY: Leukocytosis status post pneumoniae and MSSAbacteremia. Immunosuppressed state Leukocytosis status post pneumoniae and MSSA bacteremia. Immunosuppressed state TECHNIQUE: CT scan of the chest performed without intravenous contrastusing helical scanning technique. Reconstructed coronal and sagittal [...] findings. FINDINGS: LUNGS: Coarse opacity in the cafcy-cixizvy-rgqu-upper lungs are new since 04/03/2022, superimposed on scarring in the right apex. These are favoredto be infectious/inflammatory. Spiculated nodule in the anterior right midlung previously on image 72/188, now on image 54/132 appears slightly smaller compared to the prior. New small nodule in the posterior left lung image 43/132 measures 7 x 5 mm and is slightly spiculated. Advanced background emphysema. Small amount of dependent debris in the left greater thanright mainstem bronchi. HEART/MEDIASTINUM/AIMEE: Small heart size reflects hyperinflation.Coronary artery calcification mild wall thickening/haziness of the mid esophagusmay be similar to the prior. Thoracic inlet unremarkable. UPPER ABDOMEN: Cholecystectomy MUSCULOSKELETAL: Unremarkable. CHEST WALL: Unremarkable. IMPRESSION: Coarse opacities in the onkit-zmljaan-dejg-upper lungs are new since 04/03/2022, favored to be infectious/inflammatory. Spiculated nodule in the anterior right mid lung appears slightly smaller compared to the prior. New small nodule in the posterior left lung measures 7 x 5 mm and isslightly spiculated. 3 month follow-up recommended. Mild wall thickening/haziness of the mid esophagus may be similar to the prior. EGD correlation could be considered. Pulmonary nodule recommendation: Per Fleischner Society Guidelines, non-contrast chest CT at 3-6 months is recommended. If the nodules arestable at time of repeat CT, then future CT at 18-24 months (from today's scan)is considered optional for low-risk patients, but is recommended forhigh-risk patients. THIS IS AN ELECTRONICALLY VERIFIED FINAL REPORT 03/02/2024 7:43 PM - Electronically signed by Kaushik Nur M.D. AR T: Report ID: [id number] Reading Location: [place] [address] Osmar Orta MD IMG CT PROCEDURES Final Resu lt * (ABNORMAL) POCT glucose (03/02/2024 4:56 PM CDT) Glucose, POC 308(H) 70 - 199 mg/dL Glucose comment 1 Use This Result [facility] Glucose comment 2 RN/MD Notified [facility] Blood 03/02/2024 4:56 PM CDT 03/02/2024 4:56 PM CDT Gianna Dey MD LAB POCT ORDERABLES - DEVICE Final Result Performing Organization Address [email or web address]] de Phone Number [address] [place] [address] * (ABNORMAL) POCT glucose (03/02/2024 12:48 PM CDT) Glucose, POC 335(H) 70 - 199 mg/dL Glucose comment 1 Use This Result [facility] Glucose comment 2 RN/ Notified [facility] Blood 03/02/2024 12:4 8 PM CDT 03/02/2024 12:48 PM CDT Gianna Dey MD LAB POCT ORDERABLES - DEVICE Final Result Performing Organization Address [facility] Co de Phone Number [address] [place] [address] * POCT glucose (03/02/2024 8:07 AM CDT) Glucose, POC 121 70 - 199 mg/dL Glucose comment 1 Use This Result [facility] Glucose comment 2 RN/ Notified [facility] Blood 03/02/2024 8:07 AM CDT 03/02/2024 8:07 AM CDT us Gianna Dey MD LAB POCT ORDERABLES - DEVICE Final Result Performing Organization Address [facility]/ZIP Co de Phone Number ZULEMA CHAVEZ [address] [facility] Department [place] [address] * (ABNORMAL) Manual Differential (03/02/2024 5:24 AM CDT) Differential Manual Cells Counted 100 [facility] Neutrophil abs 8.3(H) 1.5 - 6.5 K/cumm [facility] Lymphocyte abs 7.6(H) 0.8 - 3.3 K/cumm [facility] Monocyte abs 0.3 0.2 - 0.8 K/cumm [facility] Neutrophil pct 51.0 % [facility] Comment: Interpretive Data Percent cell count reference ranges are not reported, since discordance with absolute values may lead to misinterpretation of CBC data. Current Interpretive Data was last revised on 2018. Lymphocyte pct 47.0 % [facility] Comment: Interpretive Data Percent cell count reference ranges are not reported, since discordance with absolute values may lead to misinterpretation of CBC data. Current Interpretive Data was last revised on 2018. Monocyte pct 2.0 % [facility] Comment: Interpretive Data Percent cell count reference ranges are not reported, since discordance with absolute values may lead to misinterpretation of CBC data. Current Interpretive Data was last revised on 2018. RBC morphology Present(A) [facility] Polychromasia 3-7/HPF(A) [facility] Hypochromasia 3-7/HPF(A) [facility] Anisocytosis Slight(A) [facility] Macrocytes 3-7/HPF(A) [facility] Teardrop cells 3-7/HPF(A) [facility] Gaitan-[place] bodies Present(A) [facility] Platelet estimate Adequate [facility] Blood 03/02/2024 5:24 AM CDT 03/02/2024 5:48 AM CDT us Diana Rivera DO LAB BLOOD ORDERABLES Final Resul t Performing Organization Address [facility]/ZIP Co de Phone Number ZULEMA CHAVEZ [address] [facility] [place] [address] * (ABNORMAL) CBC without differential (03/02/2024 5:24 AM CDT) [facility] WBC 16.2(H) 3.8 - 9.9 K/cumm Hgb 11.4(L) 13.0 - 17.5 g/dL [facility] Hct 35.2(L) 38.9 - 50.3 % [facility] Plt 346 150 - 400 K/cumm [facility] MPV 9.8 9.1 - 12.3 fL [facility] RBC 3.24(L) 4.30 - 5.80 M/cumm [facility] MCV 108.6(H) 81.3 - 96.4 fL [facility] MCH 35.2(H) 27.1 - 33.3 pg [facility] MCHC 32.4 32.3 - 35.7 g/dL [facility] RDW CV 17.2(H) 11.1 - 14.9 % [facility] RDW SD 68.5(H) 35.7 - 48.1 fL [facility] NRBC abs 0.37(H) 0.00 - 0.01 K/cumm [facility] Blood 03/02/2024 5:24 AM CDT 03/02/2024 5:48 AM CDT us Diana Rivera DO LAB BLOOD ORDERABLES Edited Resu lt - Final ZULEMA [address] [facility] [place] [employer] [place] [address] * eGFR (03/01/2024 11:38 PM CDT) [facility] eGFR >90 >=60 mL/min/1. 73 m2 [...] interpretive data was last reviewed 2021. Blood 03/01/2024 11:3 8 PM CDT 03/01/2024 11:49 PM CDT us Diana Rivera DO LAB BLOOD ORDERABLES Final Resul t [facility] [address] [facility] Department [place] [address] * Basic metabolic panel (03/01/2024 11:38 PM CDT) Sodium 137 135 - 145 mmol/L Potassium, pl 4.2 3.3 - 4.9 mmol/L [facility] Chloride 101 97 - 110 mmol/L [facility] CO2 29 22 - 32 mmol/L [facility] Anion gap 7 2 - 15 mmol/L [facility] BUN 24 6 - 25 mg/dL [facility] Creatinine 0.82 0.80 - 1.30 mg/dL [facility] Glucose 159 70 - 199 mg/dL [facility] Comment: Interpretive Data Fasting glucose [...] 2022. Calcium 8.6 8.5 - 10.3 mg/dL [facility] Blood 03/01/2024 11:3 8 PM CDT 03/01/2024 11:49 PM CDT Diana Rivera DO LAB BLOOD ORDERABLES Final Resul t Performing Organization Address [facility] Co de Phone Number ZULEMA [address] [place] [address] * POCT glucose (03/01/2024 10:22 PM CDT) Glucose, POC 150 70 - 199 mg/dL Blood 03/01/2024 10:2 2 PM CDT 03/01/2024 10:22 PM CDT Gianna Dey MD LAB POCT ORDERABLES - DEVICE Final Result Performing Organization Address [facility] Co de Phone Number [address] [place] [address] * (ABNORMAL) POCT glucose (03/01/2024 7:23 PM CDT) Glucose, POC 332(H) 70 - 199 mg/dL Glucose comment 1 Use This Result [facility] Blood 03/01/2024 7:23 PM CDT 03/01/2024 7:23 PM CDT Gianna Dey MD LAB POCT ORDERABLES - DEVICE Final Result Performing Organization Address [facility] Co de Phone Number [address] [place] [address] * (ABNORMAL) POCT glucose (03/01/2024 4:53 PM CDT) Glucose, POC 344(H) 70 - 199 mg/dL Glucose comment 1 Use This Result [facility] Glucose comment 2 RN/ Notified [facility] Blood 03/01/2024 4:53 PM CDT 03/01/2024 4:53 PM CDT Gianna Dey MD LAB POCT ORDERABLES - DEVICE Final Result [address] [place] [address] * POCT glucose (03/01/2024 11:52 AM CDT) Glucose, POC 178 70 - 199 mg/dL Glucose comment 1 Use This Result [facility] Glucose comment 2 RN/ Notified [facility] Blood 03/01/2024 11:5 2 AM CDT 03/01/2024 11:52 AM CDT Gianna Dey MD LAB POCT ORDERABLES - DEVICE Final Result Performing Organization Address [facility] Co de Phone Number [address] [place] [address] * (ABNORMAL) POCT glucose (03/01/2024 8:02 AM CDT) Glucose, POC 226(H) 70 - 199 mg/dL Glucose comment 1 Use This Result [facility] Glucose comment 2 RN/ Notified [facility] Blood 03/01/2024 8:02 AM CDT 03/01/2024 8:02 AM CDT Gianna Dey MD LAB POCT ORDERABLES - DEVICE Final Result Performing Organization Address [facility]/ZIP Co de Phone Number [address] [place] [address] * (ABNORMAL) POCT glucose (03/01/2024 3:46 AM CDT) Glucose, POC 202(H) 70 - 199 mg/dL Glucose comment 1 Use This Result [facility] Glucose comment 2 RN/MD Notified [facility] Blood 03/01/2024 3:46 AM CDT 03/01/2024 3:46 AM CDT Saim Rivera DO LAB POCT ORDERABLES - DEVICE Fin al Result Performing Organization Address [facility] Co de Phone Number LESLIE[address] [place] [address] * POCT glucose (03/01/2024 12:02 AM CDT) Glucose, POC 173 70 - 199 mg/dL Blood 03/01/2024 12:0 2 AM CDT 03/01/2024 12:02 AM CDT Saim Rivera DO LAB POCT ORDERABLES - DEVICE Fin al Result Performing Organization Address [facility] Co de Phone Number [address] [place] [address] * POCT glucose (02/29/2024 7:30 PM CDT) Glucose, POC 164 70 - 199 mg/dL Glucose comment 1 Use This Result [facility] Blood 02/29/2024 7:30 PM CDT 02/29/2024 7:30 PM CDT SaN2Careafa DO LAB POCT ORDERABLES - DEVICE Fin al Result Performing Organization Address [facility] Co de Phone Number [address] [place] [address] * (ABNORMAL) POCT glucose (02/29/2024 6:12 PM CDT) Glucose, POC 254(H) 70 - 199 mg/dL Blood 02/29/2024 6:12 PM CDT 02/29/2024 6:12 PM CDT Saim Rivera DO LAB POCT ORDERABLES - DEVICE Fin al Result Performing Organization Address [email or web address]] de Phone Number [address] [place] [address] * (ABNORMAL) POCT glucose (02/29/2024 4:33 PM CDT) Glucose, POC 373(H) 70 - 199 mg/dL Blood 02/29/2024 4:33 PM CDT 02/29/2024 4:33 PM CDT [facility] Rivera DO LAB POCT ORDERABLES - DEVICE Fin al Result Performing Organization Address [facility] de Phone Number [address] [place] [address] * POCT glucose (02/29/2024 11:20 AM CDT) Pathologist [facility] Glucose, POC 144 70 - 199 mg/dL Blood 02/29/2024 11:2 0 AM CDT 02/29/2024 11:20 AM CDT [facility] Rivera DO LAB POCT ORDERABLES - DEVICE Fin al Result Performing Organization Address [facility] [[email or web address]] de Phone Number [address] [place] [address] * (ABNORMAL) CBC without differential (02/29/2024 7:34 AM CDT) Pathologist [facility] WBC 12.4(H) 3.8 - 9.9 K/cumm Hgb 11.2(L) 13.0 - 17.5 g/dL [facility] Hct 34.0(L) 38.9 - 50.3 % [facility] Plt 365 150 - 400 K/cumm [facility] MPV 9.9 9.1 - 12.3 fL [facility] RBC 3.17(L) 4.30 - 5.80 M/cumm [facility] MCV 107.3(H) 81.3 - 96.4 fL [facility] MCH 35.3(H) 27.1 - 33.3 pg [facility] MCHC 32.9 32.3 - 35.7 g/dL [facility] RDW CV 17.2(H) 11.1 - 14.9 % [facility] RDW SD 67.0(H) 35.7 - 48.1 fL [facility] NRBC abs 0.27(H) 0.00 - 0.01 K/cumm [facility] Blood 02/29/2024 7:34 AM CDT 02/29/2024 8:13 AM CDT Josefa Taylor NP LAB BLOOD ORDERABLES Pilar l Result Performing Organization Address [facility]/ZIP Co de Phone Number [address] [place] [address] * POCT glucose (02/29/2024 7:18 AM CDT) Glucose, POC 123 70 - 199 mg/dL Blood 02/29/2024 7:18 AM CDT 02/29/2024 7:18 AM CDT Diana Rivera DO LAB POCT ORDERABLES - DEVICE Fin al Result Performing Organization Address [facility] Co de Phone Number [address] [place] [address] * POCT glucose (02/29/2024 2:06 AM CDT) Glucose, POC 150 70 - 199 mg/dL Glucose comment 1 Use This Result [facility] Glucose comment 2 RN/MD Notified [facility] Blood 02/29/2024 2:06 AM CDT 02/29/2024 2:06 AM CDT us Saim Rivera DO LAB POCT ORDERABLES - DEVICE Fin al Result Performing Organization Address [email or web address]] de Phone Number ZULEMA [address] [address] * POCT glucose (02/29/2024 1:00 AM CDT) Glucose, POC 100 70 - 199 mg/dL Blood 02/29/2024 1:00 AM CDT 02/29/2024 1:00 AM CDT us Saim Rivera DO LAB POCT ORDERABLES - DEVICE Fin al Result Performing Organization Address [facility] de Phone Number ZULEMA [address] [address] * (ABNORMAL) POCT glucose (02/29/2024 12:43 AM CDT) Glucose, POC 59(L) 70 - 199 mg/dL Blood 02/29/2024 12:4 3 AM CDT 02/29/2024 12:43 AM CDT us Saim Rivera DO LAB POCT ORDERABLES - DEVICE Fin al Result Performing Organization Address [facility] de Phone Number ZULEMA [address] [address] * (ABNORMAL) POCT glucose (02/29/2024 12:08 AM CDT) Glucose, POC 56(L) 70 - 199 mg/dL Glucose comment 1 Use This Result [facility] Glucose comment 2 RN/MD Notified [facility] Blood 02/29/2024 12:0 8 AM CDT 02/29/2024 12:08 AM CDT us Saim Rivera DO LAB POCT ORDERABLES - DEVICE Fin al Result Performing Organization Address [facility] Co de Phone Number ZULEMA [address] [address] * (ABNORMAL) POCT glucose (02/28/2024 8:40 PM CDT) Glucose, POC 296(H) 70 - 199 mg/dL Glucose comment 1 Use This Result [facility] Glucose comment 2 RN/MD Notified [facility] Blood 02/28/2024 8:40 PM CDT 02/28/2024 8:40 PM CDT us Saim Rivera DO LAB POCT ORDERABLES - DEVICE Fin al Result Performing Organization Address [facility] Co de Phone Number LESLIE[address] [address] * (ABNORMAL) POCT glucose (02/28/2024 4:55 PM CDT) Glucose, POC 248(H) 70 - 199 mg/dL Glucose comment 1 Use This Result [facility] Blood 02/28/2024 4:55 PM CDT 02/28/2024 4:55 PM CDT us Saim Rivera DO LAB POCT ORDERABLES - DEVICE Fin al Result Performing Organization Address [facility] Co de Phone Number LESLIE[address] [place] [address] * POCT glucose (02/28/2024 12:39 PM CDT) Glucose, POC 163 70 - 199 mg/dL Glucose comment 1 Use This Result [facility] Blood 02/28/2024 12:3 9 PM CDT 02/28/2024 12:39 PM CDT us Saim Rivera DO LAB POCT ORDERABLES - DEVICE Fin al Result Performing Organization Address [facility] Co de Phone Number [address] [place] [address] * POCT glucose (02/28/2024 12:02 PM CDT) Glucose, POC 173 70 - 199 mg/dL Blood 02/28/2024 12:0 2 PM CDT 02/28/2024 12:02 PM CDT us Diana Rivera DO LAB POCT ORDERABLES - DEVICE Fin al Result [facility] Department [place] [address] * EGD (02/28/2024 11:38 AM CDT) Anatomical Region Laterality Modality Other Narrative Procedure Note Gee Mcdaniel MD - 02/28/2024 11:38 AM CDT [facility] GI ENDOSCOPY Patient Name: Bri Jones Procedure Date: 02/28/2024 11:38 AM Date of : 1965 Admit Type: Inpatient Age: 58 Gender: Male Attending MD: Gee Ravi M.D. Room: [facility] ENDOSCOPY ROOM [facility] Note Status: Finalized Procedure: Upper GI endoscopy Indications: Follow-up of esophagitis in anticipation of transesophageal echocardiogram Referring MD: Diana Rivera D.O. Providers: Gee Mcdaniel M.D. Medicines: Monitored Anesthesia Care Complications: No immediate complications. Estimated Blood Loss: Estimated blood loss: none. Procedure: Pre-Anesthesia Assessment: - Prior to the procedure, a History and Physicalwas performed, and patient medications and allergieswere reviewed. The patient is competent. The risks and benefits of the procedure and the sedation optionsand risks were discussed with the patient. Allquestions were answered and informed consent was obtained. Patient identification and proposed procedure were verified by the physician and the nurse in the procedure room. Mental Status Examination: normal. Prophylactic Antibiotics: The patient does notrequire prophylactic antibiotics. Prior Anticoagulants: The patient has taken Xarelto (rivaroxaban), last dosewas day of procedure. ASA Grade Assessment: III - A patient with severe systemic disease. Afterreviewing the risks and benefits, the patient was deemed in satisfactory condition to undergo the procedure.The anesthesia plan was to use monitored anesthesiacare (MAC). Immediately prior to administration of medications, the patient was re-assessed foradequacy to receive sedatives. The heart rate, respiratory rate, oxygen saturations, blood pressure, adequacyof pulmonary ventilation, and response to care were monitored throughout the procedure. The physical status of the patient was re-assessed after the procedure. The benefits, risks, and alternatives to theprocedure and sedation were discussed and informed consentwas obtained. The scope was passed under direct vision. The GIF-H190 Upper endoscope was introduced through the mouth, with the intention of advancing to the duodenum. The scope was advanced to the gastricbody before the procedure was aborted. Medications were given. The upper GI endoscopy was accomplishedwithout difficulty. The patient tolerated the procedurewell. Findings: Mildly severe esophagitis with no bleeding was found 35 to 45 cm from the incisors. A medium amount of solid food (residue) was found in the gastricbody. The procedure was aborted. Impression: - Mildly severe esophagitis with no bleeding. - A medium amount of solid food (residue) in the stomach. Procedure aborted. - No specimens collected. Recommendation: - [facility] - Advance diet as tolerated. - Use Protonix (pantoprazole) 40 mg PO BID for 8weeks. - Use sucralfate suspension 1 gram PO QID for 8weeks. - Repeat upper endoscopy in 8 weeks to checkhealing. - Return to GI clinic in 3 weeks. Gee Mcdaniel M.D. Gee Mcdaniel M.D. 02/28/2024 1:45:20 PM . Number of Addenda: 0 Note Initiated On: 02/28/2024 11:38 AM Recognized by the [employer] for promoting quality in endoscopy Gee Mcdaniel MD ENDOSCOPY P ROCEDURES Final Result * POCT glucose (02/28/2024 8:02 AM CDT) Glucose, POC 118 70 - 199 mg/dL Glucose comment 1 Use This Result ZULEMA Blood 02/28/2024 8:02 AM CDT 02/28/2024 8:02 AM CDT Diana Rivera DO LAB POCT ORDERABLES - DEVICE Fin al Result ZULEMA [address] [facility] Department [place] [address] * (ABNORMAL) Lipid panel (02/28/2024 5:26 AM CDT) Cholesterol 152 30 - 199 mg/dL Comment: Interpretive Data [...] Data was last revised on 2018. Triglycerides 163(H) <=149 mg/dL ZULEMA CHAVEZ Comment: Interpretive Data [...] Data was last revised on 2018. HDL 82 >=40 mg/dL ZULEMA CHAVEZ Comment: Interpretive Data Ages [...] was last revised on 2018. LDL, calculated 37 <=129 mg/dL ZULEMA CHAVEZ Comment: Interpretive Data Ages < or = 19 years ??Acceptable: ? <110 mg/dL ??Borderline high: ??110-129 mg/dL ??High: ?>or= 130 mg/dL Ages > or = 20 years ??Optimal: ? <100 mg/dL ??Near optimal: ?100-129 mg/dL ??Borderline high: ?? 130-159 mg/dL ??High: ?>160 mg/dL Literature References: 1. Expert Panel on Integrated Guidelines for Cardiovascular Health and Risk Reduction in Children and Adolescents. Pediatrics 2011;128:S213 2. NCEP Expert Panel. Circulation 2004;110:227 Current Interpretive Data was last revised on 2018. Non-HDL Cholesterol 70 mg/dL ZULEMA CHAVEZ Comment: Interpretive Data Ages [...] 2018. Chol/HDL ratio 2 ZULEMA CHAVEZ Blood 02/28/2024 5:26 AM CDT 02/28/2024 6:30 AM CDT us Saim Rivera DO LAB BLOOD ORDERABLES Final Resul t Performing Organization Address [facility]/ZIP Co de Phone Number ZULEMA [address] [place] [address] * eGFR (02/28/2024 5:26 AM CDT) [facility] eGFR >90 >=60 mL/min/1. 73 m2 [...] interpretive data was last reviewed 2021. Blood 02/28/2024 5:26 AM CDT 02/28/2024 6:30 AM CDT Saim Rivera DO LAB BLOOD ORDERABLES Final Resul t ZULEMA [facility] [place] [employer] [place] [address] * (ABNORMAL) Basic metabolic panel (02/28/2024 5:26 AM CDT) [facility] Sodium 136 135 - 145 mmol/L Potassium, pl 4.3 3.3 - 4.9 mmol/L [facility] Comment:Hemolyzed; Potassium value may be falsely elevated by as much as 1.0 mmol/L. Suggest redraw and reanalysis. Chloride 98 97 - 110 mmol/L [facility] CO2 28 22 - 32 mmol/L [facility] Anion gap 10 2 - 15 mmol/L [facility] BUN 28(H) 6 - 25 mg/dL [facility] Creatinine 0.78(L) 0.80 - 1.30 mg/dL [facility] Glucose 164 70 - 199 mg/dL [facility] Comment: Interpretive Data Fasting glucose [...] 8.7 8.5 - 10.3 mg/dL [facility] Blood 02/28/2024 5:26 AM CDT 02/28/2024 6:30 AM CDT us Diana Rivera DO LAB BLOOD ORDERABLES Final Resul t [facility] [address] [facility] Department [place] [address] * (ABNORMAL) CBC without differential (02/28/2024 5:26 AM CDT) [facility] WBC 13.6(H) 3.8 - 9.9 K/cumm Hgb 11.4(L) 13.0 - 17.5 g/dL [facility] Hct 33.9(L) 38.9 - 50.3 % [facility] Plt 378 150 - 400 K/cumm [facility] MPV 9.8 9.1 - 12.3 fL [facility] RBC 3.26(L) 4.30 - 5.80 M/cumm [facility] MCV 104.0(H) 81.3 - 96.4 fL [facility] MCH 35.0(H) 27.1 - 33.3 pg [facility] MCHC 33.6 32.3 - 35.7 g/dL [facility] RDW CV 16.5(H) 11.1 - 14.9 % [facility] RDW SD 62.6(H) 35.7 - 48.1 fL [facility] NRBC abs 0.42(H) 0.00 - 0.01 K/cumm [facility] Blood 02/28/2024 5:26 AM CDT 02/28/2024 6:30 AM CDT Josefa Taylor WEB SITE SPECIALIST LAB BLOOD ORDERABLES Pilar l Result Performing Organization Address [facility] Co de Phone Number [address] [place] [address] * POCT glucose (02/28/2024 4:09 AM CDT) Glucose, POC 184 70 - 199 mg/dL Glucose comment 1 Use This Result [facility] Glucose comment 2 RN/MD Notified [facility] Blood 02/28/2024 4:09 AM CDT 02/28/2024 4:09 AM CDT Diana Rivera DO LAB POCT ORDERABLES - DEVICE Fin al Result Performing Organization Address [facility]/ZIP Co de Phone Number [address] [place] [address] * (ABNORMAL) POCT glucose (02/28/2024 4:08 AM CDT) Glucose, POC 202(H) 70 - 199 mg/dL Blood 02/28/2024 4:08 AM CDT 02/28/2024 4:08 AM CDT us Saim Rivera DO LAB POCT ORDERABLES - DEVICE Fin al Result Performing Organization Address [facility] Co de Phone Number ZULEMA [address] [address] * POCT glucose (02/28/2024 12:34 AM CDT) Glucose, POC 132 70 - 199 mg/dL Glucose comment 1 Use This Result [facility] Glucose comment 2 RN/MD Notified ZULEMA Blood 02/28/2024 12:3 4 AM CDT 02/28/2024 12:34 AM CDT us Saim Rivera DO LAB POCT ORDERABLES - DEVICE Fin al Result Performing Organization Address [facility] Co de Phone Number ZULEMA [address] [place] [address] * POCT glucose (02/27/2024 11:46 PM CDT) Glucose, POC 97 70 - 199 mg/dL Glucose comment 1 Use This Result [facility] Glucose comment 2 RN/ Notified Z[facility] Blood 02/27/2024 11:4 6 PM CDT 02/27/2024 11:46 PM CDT us Saim Rivera DO LAB POCT ORDERABLES - DEVICE Fin al Result Performing Organization Address [facility] Co de Phone Number ZULEMA [address] [place] [address] * POCT glucose (02/27/2024 11:17 PM CDT) Glucose, POC 128 70 - 199 mg/dL Glucose comment 1 Use This Result [facility] Glucose comment 2 RN/MD Notified Z[facility] Blood 02/27/2024 11:1 7 PM CDT 02/27/2024 11:17 PM CDT us Saim Rivera DO LAB POCT ORDERABLES - DEVICE Fin al Result Performing Organization Address [facility] Co de Phone Number ZULEMA [address] [facility] [place] [address] * (ABNORMAL) POCT glucose (02/27/2024 8:56 PM CDT) Glucose, POC 340(H) 70 - 199 mg/dL Glucose comment 1 Use This Result [facility] Glucose comment 2 RN/MD Notified [facility] Blood 02/27/2024 8:56 PM CDT 02/27/2024 8:56 PM CDT Diaan Rivera DO LAB POCT ORDERABLES - DEVICE Fin al Result Performing Organization Address [facility] Co de Phone Number ZULEMA [address] [facility] [place] [address] * XR Chest PA Lateral 2 Views (02/27/2024 6:05 PM CDT) Anatomical Region Laterality Modality Body, Chest N/A Computed Radiogr aphy 02/28/2024 5:50 AM CDT Narrative 02/28/2024 5:53 AM CDT EXAM DESCRIPTION: XR CHEST PA LATERAL 2 VIEWS REASON FOR STUDY: Immunosuppressed state pneumoniae ?? Evaluate immunosupressed pneumoniae. ?? TECHNIQUE: PA and lateral ??radiographic view(s) of the chest. COMPARISON: [id number]. FINDINGS: LUNGS: ??There is apical opacity on the right, similar to prior examination. ??Opacity at the left apex appears slightly improved. ??There is hyperinflation of the lungs. ??Linear scarring or atelectasis in the right middle lobe. ??No effusion or pneumothorax. HEART/MEDIASTINUM: ??Cardiac silhouette is normal in size. ??Mediastinal contours are similar. LINES/TUBES: ??None. BONES: ??Degenerative changes. ??No acute abnormality IMPRESSION: 1. ?? Biapical opacities, right greater than left. ??Right-sided consolidation, similar. ??Slight interval improvement on the left. ??Continued follow-up recommended 2. ?? Hyperinflation of the lungs THIS IS AN ELECTRONICALLY VERIFIED FINAL REPORT 02/28/2024 5:53 AM - Electronically signed by ??Vianey Mares M.D. TW D: ??02/28/2024 5:53 AM T: Report ID: [id number] Reading Location: ??[id number] Procedure Note Vianey Mares MD - 02/28/2024 EXAM DESCRIPTION: XR CHEST PA LATERAL 2 VIEWS REASON FOR STUDY: Immunosuppressed state pneumoniae Evaluate immunosupressed pneumoniae. TECHNIQUE: PA and lateral radiographic view(s) of the chest. COMPARISON: [id number]. FINDINGS: LUNGS: There is apical opacity on the right, similar to prior examination. Opacity at the left apex appears slightly improved. Thereis hyperinflation of the lungs. Linear scarring or atelectasis in the right middle lobe. No effusion or pneumothorax. HEART/MEDIASTINUM: Cardiac silhouette is normal in size. Mediastinal contours are similar. LINES/TUBES: None. BONES: Degenerative changes. No acute abnormality IMPRESSION: 1. Biapical opacities, right greater than left. Right-sidedconsolidation, similar. Slight interval improvement on the left. Continued follow-up recommended 2. Hyperinflation of the lungs THIS IS AN ELECTRONICALLY VERIFIED FINAL REPORT 02/28/2024 5:53 AM - Electronically signed by Vianey Mares M.D. TW T: Report ID: [id number] Reading Location: [id number] us Osmar Orta MD IMG XR PROCEDURES Final Resu lt * POCT glucose (02/27/2024 5:04 PM CDT) Glucose, POC 123 70 - 199 mg/dL Blood 02/27/2024 5:04 PM CDT 02/27/2024 5:04 PM CDT us Diana Rivera DO LAB POCT ORDERABLES - DEVICE Fin al Result ZULEMA [address] [place] [address] * POCT glucose (02/27/2024 12:01 PM CDT) [facility] Glucose, POC 151 70 - 199 mg/dL Blood 02/27/2024 12:0 1 PM CDT 02/27/2024 12:01 PM CDT Saim Rivera DO LAB POCT ORDERABLES - DEVICE Fin al Result Performing Organization Address [facility] Co de Phone Number [address] [address] * (ABNORMAL) POCT glucose (02/27/2024 8:00 AM CDT) [facility] Glucose, POC 59(L) 70 - 199 mg/dL Blood 02/27/2024 8:00 AM CDT 02/27/2024 8:00 AM CDT [facility] Rivera LAB POCT ORDERABLES - DEVICE Fin al Result Performing Organization Address [facility] Co de Phone Number [address] [address] * (ABNORMAL) CBC without differential (02/27/2024 6:10 AM CDT) [facility] WBC 14.4(H) 3.8 - 9.9 K/cumm Hgb 10.4(L) 13.0 - 17.5 g/dL [facility] Hct 31.7(L) 38.9 - 50.3 % [facility] Plt 358 150 - 400 K/cumm [facility] MPV 9.9 9.1 - 12.3 fL [facility] RBC 3.05(L) 4.30 - 5.80 M/cumm [facility] MCV 103.9(H) 81.3 - 96.4 fL [facility] MCH 34.1(H) 27.1 - 33.3 pg [facility] MCHC 32.8 32.3 - 35.7 g/dL [facility] RDW CV 16.3(H) 11.1 - 14.9 % [facility] RDW SD 62.5(H) 35.7 - 48.1 fL [facility] NRBC abs 0.44(H) 0.00 - 0.01 K/cumm [facility] Blood 02/27/2024 6:10 AM CDT 02/27/2024 6:20 AM CDT Josefa Taylor WEB SITE SPECIALIST LAB BLOOD ORDERABLES Pilar l Result Performing Organization Address [facility] Co de Phone Number [address] [place] [address] * POCT glucose (02/27/2024 3:51 AM CDT) Glucose, POC 148 70 - 199 mg/dL Glucose comment 1 Use This Result [facility] Glucose comment 2 RN/MD Notified [facility] Blood 02/27/2024 3:51 AM CDT 02/27/2024 3:51 AM CDT Saim Rivera DO LAB POCT ORDERABLES - DEVICE Fin al Result Performing Organization Address [email or web address]] de Phone Number [address] [place] [address] * POCT glucose (02/27/2024 2:15 AM CDT) Glucose, POC 87 70 - 199 mg/dL Glucose comment 1 Use This Result [facility] Glucose comment 2 RN/MD Notified [facility] Blood 02/27/2024 2:15 AM CDT 02/27/2024 2:15 AM CDT Saim Rivera DO LAB POCT ORDERABLES - DEVICE Fin al Result Performing Organization Address [facility] Co de Phone Number [address] [place] [address] * POCT glucose (02/26/2024 11:49 PM CDT) Glucose, POC 178 70 - 199 mg/dL Glucose comment 1 Use This Result [facility] Glucose comment 2 RN/MD Notified ZULEMA Blood 02/26/2024 11:4 9 PM CDT 02/26/2024 11:49 PM CDT Saim Rivera DO LAB POCT ORDERABLES - DEVICE Fin al Result Performing Organization Address [facility] Co de Phone Number ZULEMA [address] [place] [address] * POCT glucose (02/26/2024 8:36 PM CDT) Glucose, POC 190 70 - 199 mg/dL Glucose comment 1 Use This Result [facility] Glucose comment 2 RN/MD Notified [facility] Blood 02/26/2024 8:36 PM CDT 02/26/2024 8:36 PM CDT Saim Rivera DO LAB POCT ORDERABLES - DEVICE Fin al Result Performing Organization Address [facility] [[email or web address]] de Phone Number LESLIE[address] [place] [address] * (ABNORMAL) POCT glucose (02/26/2024 4:39 PM CDT) Glucose, POC 384(H) 70 - 199 mg/dL Glucose comment 1 Use This Result [facility] Blood 02/26/2024 4:39 PM CDT 02/26/2024 4:39 PM CDT Saim Rivera DO LAB POCT ORDERABLES - DEVICE Fin al Result Performing Organization Address [facility] [[email or web address]] de Phone Number LESLIE[address] [place] [address] * POCT glucose (02/26/2024 11:39 AM CDT) Glucose, POC 97 70 - 199 mg/dL Glucose comment 1 Use This Result ZULEMA Blood 02/26/2024 11:3 9 AM CDT 02/26/2024 11:39 AM CDT Saim Rivera DO LAB POCT ORDERABLES - DEVICE Fin al Result Performing Organization Address [facility] Co de Phone Number ZULEMA [address] [place] [address] * POCT glucose (02/26/2024 10:53 AM CDT) Glucose, POC 111 70 - 199 mg/dL Glucose comment 1 Use This Result [facility] Blood 02/26/2024 10:5 3 AM CDT 02/26/2024 10:53 AM CDT Saim Rivera DO LAB POCT ORDERABLES - DEVICE Fin al Result Performing Organization Address [facility] [[email or web address]] de Phone Number LESLIE[address] [place] [address] * (ABNORMAL) POCT glucose (02/26/2024 10:30 AM CDT) Glucose, POC 61(L) 70 - 199 mg/dL Glucose comment 1 Use This Result [facility] Glucose comment 2 RN/MD Notified ZULEMA Blood 02/26/2024 10:3 0 AM CDT 02/26/2024 10:30 AM CDT Saim Rivera DO LAB POCT ORDERABLES - DEVICE Fin al Result Performing Organization Address [facility] Co de Phone Number LESLIE[address] [place] [address] * POCT glucose (02/26/2024 7:34 AM CDT) Glucose, POC 163 70 - 199 mg/dL Glucose comment 1 Use This Result [facility] Blood 02/26/2024 7:34 AM CDT 02/26/2024 7:34 AM CDT us Savalencia Rivera DO LAB POCT ORDERABLES - DEVICE Fin al Result Performing Organization Address [facility] Co de Phone Number ZULEMA [address] Department [place] [address] * eGFR (02/26/2024 5:42 AM CDT) eGFR >90 >=60 mL/min/1. 73 [...] interpretive data was last reviewed 2021. Blood 02/26/2024 5:42 AM CDT 02/26/2024 6:50 AM CDT Josefa Taylor NP LAB BLOOD ORDERABLES Pilar l Result Performing Organization Address [facility]/ZIP Co de Phone Number ZULEMA [address] Department [place] [address] * (ABNORMAL) CBC without differential (02/26/2024 5:42 AM CDT) [facility] WBC 13.4(H) 3.8 - 9.9 K/cumm Hgb 11.6(L) 13.0 - 17.5 g/dL [facility] Hct 34.7(L) 38.9 - 50.3 % [facility] Plt 418(H) 150 - 400 K/cumm [facility] MPV 10.1 9.1 - 12.3 fL [facility] RBC 3.31(L) 4.30 - 5.80 M/cumm [facility] MCV 104.8(H) 81.3 - 96.4 fL [facility] MCH 35.0(H) 27.1 - 33.3 pg [facility] MCHC 33.4 32.3 - 35.7 g/dL [facility] RDW CV 16.2(H) 11.1 - 14.9 % [facility] RDW SD 62.5(H) 35.7 - 48.1 fL [facility] NRBC abs 0.25(H) 0.00 - 0.01 K/cumm [facility] Blood 02/26/2024 5:42 AM CDT 02/26/2024 6:49 AM CDT Josefa Taylor NP LAB BLOOD ORDERABLES Pilar armas Result ZULEMA [facility] Department [place] [address] * Basic metabolic panel (02/26/2024 5:42 AM CDT) [facility] Sodium 139 135 - 145 mmol/L Potassium, pl 3.6 3.3 - 4.9 mmol/L [facility] Chloride 99 97 - 110 mmol/L [facility] CO2 31 22 - 32 mmol/L [facility] Anion gap 9 2 - 15 mmol/L [facility] BUN 24 6 - 25 mg/dL [facility] Creatinine 0.81 0.80 - 1.30 mg/dL [facility] Glucose 140 70 - 199 mg/dL [facility] Comment: Interpretive Data Fasting glucose [...] 2022. Calcium 9.1 8.5 - 10.3 mg/dL [facility] Blood 02/26/2024 5:42 AM CDT 02/26/2024 6:50 AM CDT Josefa Taylor WEB SITE SPECIALIST LAB BLOOD ORDERABLES Pilar l Result Performing Organization Address [facility]/ZIP Co de Phone Number [address] [address] * POCT glucose (02/26/2024 4:22 AM CDT) Glucose, POC 125 70 - 199 mg/dL Glucose comment 1 Use This Result [facility] Blood 02/26/2024 4:22 AM CDT 02/26/2024 4:22 AM CDT Diana Rivera DO LAB POCT ORDERABLES - DEVICE Fin al Result Performing Organization Address [facility]/ZIP Co de Phone Number [address] [place] [address] * POCT glucose (02/26/2024 12:14 AM CDT) Glucose, POC 121 70 - 199 mg/dL Blood 02/26/2024 12:1 4 AM CDT 02/26/2024 12:14 AM CDT Saim Rivera DO LAB POCT ORDERABLES - DEVICE Fin al Result Performing Organization Address [facility] [[email or web address]] de Phone Number ZULEMA [address] [address] * (ABNORMAL) POCT glucose (02/25/2024 7:22 PM CDT) Glucose, POC 362(H) 70 - 199 mg/dL Glucose comment 1 Use This Result [facility] Glucose comment 2 RN/MD Notified [facility] Blood 02/25/2024 7:22 PM CDT 02/25/2024 7:22 PM CDT Saim Rivera DO LAB POCT ORDERABLES - DEVICE Fin al Result Performing Organization Address [facility] [[email or web address]] de Phone Number LESLIE[address] [address] * POCT glucose (02/25/2024 4:26 PM CDT) Glucose, POC 152 70 - 199 mg/dL Glucose comment 1 Use This Result [facility] Blood 02/25/2024 4:26 PM CDT 02/25/2024 4:26 PM CDT Saim Rivera DO LAB POCT ORDERABLES - DEVICE Fin al Result Performing Organization Address [facility] [[email or web address]] de Phone Number [address] [place] [address] * TRANSTHORACIC ECHO (TTE) COMPLETE W DOPPLER/CF W CONTRAST (02/25/2024 2:03 PM CDT) Anatomical Region Laterality Modality Ultrasound 02/25/2024 2:03 PM CDT Narrative 02/26/2024 4:01 PM CDT ? Adult Echocardiogram + ----- + :Name: BRI JONES Bertin ??Study Date: 02/25/2024 ?Status: [facility] ?: : ?Patient Location: [facility]^[id number]^Height: 71 in ?: : ?Weight: 142 lbBP: 142/89 mmHg: :: 1965 ? Gender: Male ?BSA: 1.8 m2 ?: :Reason For Study: Endocarditis ? : :Ordering Physician: ?: :TELEMAQUE, KEMUEL ?: :Referring Physician: NO, ? : :PHYSICIAN ?: :Performed By: Kaylee ?: :Andrea, RDCS ?: + ----- + Procedure A two-dimensional transthoracic echocardiogram with color flow and Doppler was performed. The study was technically difficult due to patient's 'underlying lung condition'. A contrast injection of Definity was performed to improve assessment of LV function. Definity lot # is ' [id number] '. Left Ventricle The left ventricle is normal in size. There is normal left ventricular wall thickness. Left ventricular systolic function is normal. Ejection Fraction = 55-60%. No regional wall motion abnormalities noted. There is no thrombus. Right Ventricle The right ventricle is normal in size and function. There is normal right ventricular wall thickness. The right ventricular systolic function is normal. No regional wall motion abnormalities are noted. Atria The left atrial size is normal. Right atrial size is normal. The interatrial septum is intact with no evidence for an atrial septal defect. Mitral Valve The mitral valve leaflets appear normal. There is no evidence of stenosis, fluttering, or prolapse. There is no vegetation seen on the mitral valve. There is no mitral valve stenosis. There is trace to mild mitral regurgitation. Tricuspid Valve The tricuspid valve is not well visualized. There is no tricuspid stenosis. There is trace tricuspid regurgitation. Right ventricular systolic pressure is normal. Right ventricular systolic pressure is '34' mm/HG. Aortic Valve The aortic valve is not well visualized. No aortic stenosis . No aortic regurgitation is present. Pulmonic Valve The pulmonic valve is not well visualized. There is no pulmonic valvular stenosis. Trace to mild pulmonic valvular regurgitation. Great Vessels The aortic root is not well visualized but is probably normal size. The pulmonary artery is not well visualized, but is probably normal size. IVC appears 'normal' in size. IVC collapses normally with inspiration. Pericardium There is no pericardial effusion. Diastology E/E prime ratio is 8 -15 which is in the indeterminate zone. Interpretation Summary The left ventricle is normal in size. There is normal left ventricular wall thickness. Left ventricular systolic function is normal. Ejection Fraction = 55-60%. Compared with echo 11/23/2019, no significant change. No mitral valve vegetation seen. Aortic, tricuspid, and pulmonic valves not well visualized. + + :Measurements with Normals ?: :IVSd: ?(0.6-1.2 ?? LVIDd: ?(3.5-5.7 ?? Ao root diam: ?(2.0-3.7 ?? : :0.88 cm ?cm) ?4.6 cm ?cm) ?3.2 cm ? cm) ?: :LVPWd: ? (0.6-1.1 ?? LVIDs: ?(3.1-4.6 ?? LA dimension: ?(1.9-4.0 ?? : :0.81 cm ?cm) ?3.3 cm ?cm) ?3.5 cm ? cm) ?: + + MMode/2D Measurements & Calculations FS: 28.4 % ?Ao root area: 8.0 cm2 ? LVOT diam: 2.1 cm EDV(Teich): 98.3 ml ? LVOT area: 3.5 cm2 ESV(Teich): 44.5 ml Doppler Measurements & Calculations MV E max andrew: ? MV dec time: ? Ao V2 max: ? LV V1 max P.5 cm/sec ? 0.19 sec ? 130.0 cm/sec ? 3.0 mmHg MV A max andrew: ?Ao max P.8 mmHgLV V1 max: 91.2 cm/sec ?BALA(V,D): 2.3 cm2 ??86.8 cm/sec MV E/A: 0.87 ? TV V2 max: ?PA V2 max: ? RV V1 max: ? TR max andrew: 59.7 cm/sec ? 102.0 cm/sec ? 83.4 cm/sec ?271.0 cm/sec TV max P.4 mmHg PA max P.2 mmHg ? TR max PG: ?29.4 mmHg ?RVSP(TR): 32.4 mmHg ? RAP systole: 3.0 mmHg Electronically signed by: Josué Alfonso MD 02/26/2024 04:01 PM Procedure Note Josué Alfonso MD - 02/26/2024 Adult Echocardiogram + ----- + :Name: BRI JONES Study Date: 02/25/2024Status: B : : Patient Location: [address]^[id number]^Height: 71 in : : : 142 lbBP: 142/89 mmHg: :: 1965 Gender: MaleBSA: 1.8 m2 : :Reason For Study: Endocarditis: :Ordering Physician:: :CORBIN COLE: :Referring Physician: FLORENCE,: :PHYSICIAN: :Performed By: Kaylee: :ZAFAR Andrea: + ----- + Procedure A two-dimensional transthoracic echocardiogram with color flow and Dopplerwas performed. The study was technically difficult due to patient's'underlying lung condition'. A contrast injection of Definity was performed toimprove assessment of LV function. Definity lot # is ' [id number] '. Left Ventricle The left ventricle is normal in size. There is normal left ventricularwall thickness. Left ventricular systolic function is normal. Ejection Fraction= 55-60%. No regional wall motion abnormalities noted. There is nothrombus. Right Ventricle The right ventricle is normal in size and function. There is normalright ventricular wall thickness. The right ventricular systolic function isnormal. No regional wall motion abnormalities are noted. Atria The left atrial size is normal. Right atrial size is normal. Theinteratrial septum is intact with no evidence for an atrial septal defect. Mitral Valve The mitral valve leaflets appear normal. There is no evidence ofstenosis, fluttering, or prolapse. There is no vegetation seen on the mitralvalve. There is no mitral valve stenosis. There is trace to mild mitral regurgitation. Tricuspid Valve The tricuspid valve is not well visualized. There is no tricuspidstenosis. There is trace tricuspid regurgitation. Right ventricular systolicpressure is normal. Right ventricular systolic pressure is '34' mm/HG. Aortic Valve The aortic valve is not well visualized. No aortic stenosis . No aortic regurgitation is present. Pulmonic Valve The pulmonic valve is not well visualized. There is no pulmonic valvular stenosis. Trace to mild pulmonic valvular regurgitation. Great Vessels The aortic root is not well visualized but is probably normal size. The pulmonary artery is not well visualized, but is probably normal size.IVC appears 'normal' in size. IVC collapses normally with inspiration. Pericardium There is no pericardial effusion. Diastology E/E prime ratio is 8 -15 which is in the indeterminate zone. Interpretation Summary The left ventricle is normal in size. There is normal left ventricular wall thickness. Left ventricular systolic function is normal. Ejection Fraction = 55-60%. Compared with echo 11/23/2019, no significant change. No mitral valve vegetation seen. Aortic, tricuspid, and pulmonic valves not wellvisualized. + + :Measurements with Normals: :IVSd: (0.6-1.2 LVIDd: (3.5-5.7 Ao root diam:(2.0-3.7 : :0.88 cm cm) 4.6 cm cm) 3.2 cm cm): :LVPWd: (0.6-1.1 LVIDs: (3.1-4.6 LA dimension:(1.9-4.0 : :0.81 cm cm) 3.3 cm cm) 3.5 cm cm): + + MMode/2D Measurements & Calculations FS: 28.4 % Ao root area: 8.0 cm2 LVOT diam: 2.1 cm EDV(Teich): 98.3 ml LVOT area: 3.5 cm2 ESV(Teich): 44.5 ml Doppler Measurements & Calculations MV E max andrew: MV dec time: Ao V2 max: LV V1 max P.5 cm/sec 0.19 sec 130.0 cm/sec 3.0 mmHg MV A max andrew: Ao max P.8 mmHgLV V1 max: 91.2 cm/sec BALA(V,D): 2.3 cm2 86.8 cm/sec MV E/A: 0.87 TV V2 max: PA V2 max: RV V1 max: TR max andrew: 59.7 cm/sec 102.0 cm/sec 83.4 cm/sec 271.0 cm/sec TV max P.4 mmHg PA max P.2 mmHg TR max P.4 mmHg RVSP(TR): 32.4mmHg RAP systole: 3.0 mmHg Electronically signed by: Josué Alfonso MD 02/26/2024 04:01 PM us Corbin Davidue CV ECHO PROCEDURES F inal Result * POCT glucose (02/25/2024 11:47 AM CDT) Glucose, POC 198 70 - 199 mg/dL Glucose comment 1 Use This Result ZULEMA Glucose comment 2 RN/ Notified ZULEMA CHAVEZ Blood 02/25/2024 11:4 7 AM CDT 02/25/2024 11:47 AM CDT Saim Rivera DO LAB POCT ORDERABLES - DEVICE Fin al Result Performing Organization Address [facility] [[email or web address]] de Phone Number ZULEMA [address] [address] * POCT glucose (02/25/2024 7:57 AM CDT) Glucose, POC 99 70 - 199 mg/dL Glucose comment 1 Use This Result [facility] Glucose comment 2 RN/MD Notified ZULEMA Blood 02/25/2024 7:57 AM CDT 02/25/2024 7:57 AM CDT Saim Rivera DO LAB POCT ORDERABLES - DEVICE Fin al Result Performing Organization Address [facility] de Phone Number LESLIE[address] [address] * (ABNORMAL) POCT glucose (02/25/2024 4:21 AM CDT) Glucose, POC 218(H) 70 - 199 mg/dL Glucose comment 1 Use This Result ZULEMA Blood 02/25/2024 4:21 AM CDT 02/25/2024 4:21 AM CDT Corbin Cole MD LAB POCT ORDERABLES - DEVICE Final Result Performing Organization Address [facility] [[email or web address]] de Phone Number LESLIE[address] [address] * eGFR (02/25/2024 2:22 AM CDT) eGFR >90 >=60 mL/min/1. 73 [...] interpretive data was last reviewed 2021. Blood 02/25/2024 2:22 AM CDT 02/25/2024 3:28 AM CDT us Osmar Orta MD LAB BLOOD ORDERABLES Final R esult ZULEMA [address] [facility] Department [place] [address] * (ABNORMAL) Differential, auto (02/25/2024 2:22 AM CDT) Neutrophil abs 10.0(H) 1.5 - 6.5 K/cumm Imm gran abs 0.1 0.0 - 0.1 K/cumm [facility] Lymphocyte abs 4.0(H) 0.8 - 3.3 K/cumm [facility] Monocyte abs 1.2(H) 0.2 - 0.8 K/cumm [facility] Eosinophil abs 0.0 0.0 - 0.5 K/cumm [facility] Basophil abs 0.0 0.0 - 0.1 K/cumm [facility] Neutrophil pct 65.4 % [facility] Comment: Interpretive Data Percent cell count reference ranges are not reported, since discordance with absolute values may lead to misinterpretation of CBC data. Current Interpretive Data was last revised on 2018. Imm gran pct 0.7 % [facility] Comment: Interpretive Data Percent cell count reference ranges are not reported, since discordance with absolute values may lead to misinterpretation of CBC data. Current Interpretive Data was last revised on 2018. Lymphocyte pct 26.0 % [facility] Comment: Interpretive Data Percent cell count reference ranges are not reported, since discordance with absolute values may lead to misinterpretation of CBC data. Current Interpretive Data was last revised on 2018. Monocyte pct 7.8 % [facility] Comment: Interpretive Data Percent cell count reference ranges are not reported, since discordance with absolute values may lead to misinterpretation of CBC data. Current Interpretive Data was last revised on 2018. Eosinophil pct 0.0 % [facility] Comment: Interpretive Data Percent cell count reference ranges are not reported, since discordance with absolute values may lead to misinterpretation of CBC data. Current Interpretive Data was last revised on 2018. Basophil pct 0.1 % [facility] Comment: Interpretive Data Percent cell count reference ranges are not reported, since discordance with absolute values may lead to misinterpretation of CBC data. Current Interpretive Data was last revised on 2018. Blood 02/25/2024 2:22 AM CDT 02/25/2024 3:28 AM CDT us Osmar Orta MD LAB BLOOD ORDERABLES Final R esult [facility] [address] [facility] Department [place] [address] * Comprehensive metabolic panel (02/25/2024 2:22 AM CDT) Sodium 140 135 - 145 mmol/L Potassium, pl 3.9 3.3 - 4.9 mmol/L [facility] Chloride 102 97 - 110 mmol/L [facility] CO2 28 22 - 32 mmol/L [facility] Anion gap 10 2 - 15 mmol/L [facility] BUN 22 6 - 25 mg/dL [facility] Creatinine 0.90 0.80 - 1.30 mg/dL [facility] Glucose 71 70 - 199 mg/dL [facility] Comment: Delta - Results Reviewed Interpretive Data [...] 8.9 8.5 - 10.3 mg/dL [facility] Bilirubin, total 0.2 0.1 - 1.2 mg/dL [facility] Protein, pl 7.4 6.5 - 8.5 g/dL [facility] Albumin 3.5 3.5 - 5.0 g/dL [facility] Alk phos 113 40 - 130 Units/L [facility] ALT 27 7 - 55 Units/L [facility] AST 22 10 - 50 Units/L [facility] Blood 02/25/2024 2:22 AM CDT 02/25/2024 3:28 AM CDT us Osmar Orta MD LAB BLOOD ORDERABLES Final R esult [facility] [address] [facility] Department [place] [address] * (ABNORMAL) CBC with auto differential (02/25/2024 2:22 AM CDT) WBC 15.2(H) 3.8 - 9.9 K/cumm Hgb 11.1(L) 13.0 - 17.5 g/dL [facility] Hct 33.6(L) 38.9 - 50.3 % [facility] Plt 405(H) 150 - 400 K/cumm [facility] MPV 10.2 9.1 - 12.3 fL [facility] RBC 3.17(L) 4.30 - 5.80 M/cumm [facility] MCV 106.0(H) 81.3 - 96.4 fL [facility] MCH 35.0(H) 27.1 - 33.3 pg [facility] MCHC 33.0 32.3 - 35.7 g/dL [facility] RDW CV 15.9(H) 11.1 - 14.9 % [facility] RDW SD 62.0(H) 35.7 - 48.1 fL [facility] NRBC abs 0.09(H) 0.00 - 0.01 K/cumm [facility] Blood 02/25/2024 2:22 AM CDT 02/25/2024 3:28 AM CDT Osmar Orta MD LAB BLOOD ORDERABLES Final R esult Performing Organization Address [facility] Co de Phone Number LESLIE[address] [place] [address] * POCT glucose (02/25/2024 2:15 AM CDT) Glucose, POC 78 70 - 199 mg/dL Blood 02/25/2024 2:15 AM CDT 02/25/2024 2:15 AM CDT Corbin Cole MD LAB POCT ORDERABLES - DEVICE Final Result Performing Organization Address [facility]/ZIP Co de Phone Number [address] [place] [address] * POCT glucose (02/24/2024 11:22 PM CDT) Glucose, POC 152 70 - 199 mg/dL Glucose comment 1 Use This Result [facility] Blood 02/24/2024 11:2 2 PM CDT 02/24/2024 11:22 PM CDT Corbin Cole MD LAB POCT ORDERABLES - DEVICE Final Result Performing Organization Address [facility] Co de Phone Number ZULEMA [address] [address] * (ABNORMAL) POCT glucose (02/24/2024 7:32 PM CDT) Glucose, POC 229(H) 70 - 199 mg/dL Glucose comment 1 Use This Result ZULEMA Blood 02/24/2024 7:32 PM CDT 02/24/2024 7:32 PM CDT Corbin Cole MD LAB POCT ORDERABLES - DEVICE Final Result Performing Organization Address [facility] Co de Phone Number [address] [address] * POCT glucose (02/24/2024 4:57 PM CDT) Glucose, POC 131 70 - 199 mg/dL Glucose comment 1 Use This Result LESLIEAVTAR Blood 02/24/2024 4:57 PM CDT 02/24/2024 4:57 PM CDT Corbin Cole MD LAB POCT ORDERABLES - DEVICE Final Result Performing Organization Address [facility] Co de Phone Number [address] [address] * Blood culture Blood Arm, right (02/24/2024 1:18 PM CDT) Report Final Report: No growth Comment:Testing performed by : [facility], [address] [facility], [place]., [address] Blood (Arm, right) 02/24/2024 1:18 PM CDT 02/24/2024 3:58 PM CDT Narrative ZULEMA - 02/28/2024 4:01 PM CDT From a different site than #1. [...] organism identification may be performed using the [employer] Gram-Positive Blood Culture Assay. This assay detects microbial DNA in positive blood culture broth via hybridization of target DNA to capture oligonucleotides on a microarray. This assay has been cleared by the [place] Food and Drug Administration and its performance characteristics have been verified by the [facility] Microbiology Laboratory. 5. ?For questions about this culture, contact the Microbiology Laboratory at [phone]. Interpretive data was last revised on 2020. Corbin Cole MD LAB MICROBIOLOGY - [facility] ORDERABLES Final Result [facility] [address] [facility] Department [place] [address] * Blood culture Blood Arm, right (02/24/2024 12:56 PM CDT) Report Final Report: No growth Comment:Testing performed by : [facility], [address] [facility] [address], [place]., [address] Blood (Arm, right) 02/24/2024 12:56 PM CDT 02/24/2024 3:55 PM CDT Carlos A POOLE - 02/28/2024 4:01 PM CDT Collection->Peripheral 1. ?Blood cultures are incubated [...] organism identification may be performed using the [employer] Gram-Positive Blood Culture Assay. This assay detects microbial DNA in positive blood culture broth via hybridization of target DNA to capture oligonucleotides on a microarray. This assay has been cleared by the [place] Food and Drug Administration and its performance characteristics have been verified by the [facility] Microbiology [facility]. 5. ?For questions about this culture, contact the Microbiology Laboratory at [phone]. Interpretive data was last revised on 2020. Corbin Cole MD LAB MICROBIOLOGY - G ENERAL ORDERABLES Final Result Performing Organization Address [facility]/ZIP Co de Phone Number LESLIEAVTAR [facility] Department [place] [address] * POCT glucose (02/24/2024 11:51 AM CDT) [facility] Signature Glucose, POC 105 70 - 199 mg/dL Glucose comment 1 Use This Result ZULEMA CHAVEZ Blood 02/24/2024 11:5 1 AM CDT 02/24/2024 11:51 AM CDT Corbin Cole MD LAB POCT ORDERABLES - DEVICE Final Result Performing Organization Address [facility]/ZIP Co de Phone Number ZULEMA Richardson0 [facility] [place] [address] * POCT glucose (02/24/2024 8:22 AM CDT) [facility] Glucose, POC 112 70 - 199 mg/dL Glucose comment 1 Use This Result ZULEMA CHAVEZ Blood 02/24/2024 8:22 AM CDT 02/24/2024 8:22 AM CDT Corbin Cole MD LAB POCT ORDERABLES - DEVICE Final Result ZULEMA Dylan0 [facility] [place] [address] * eGFR (02/24/2024 4:56 AM CDT) [facility] eGFR >90 >=60 mL/min/1. 73 m2 [...] interpretive data was last reviewed 2021. Blood 02/24/2024 4:56 AM CDT 02/24/2024 6:09 AM CDT Josefaflori Taylor LAB BLOOD ORDERABLES Pilar armas Result Performing Organization Address [facility]/ZIP Co de Phone Number [address] [place] [address] * (ABNORMAL) CBC without differential (02/24/2024 4:56 AM CDT) Pathologist [facility] WBC 11.7(H) 3.8 - 9.9 K/cumm Hgb 11.3(L) 13.0 - 17.5 g/dL [facility] Hct 34.2(L) 38.9 - 50.3 % [facility] Plt 382 150 - 400 K/cumm [facility] MPV 10.3 9.1 - 12.3 fL [facility] RBC 3.23(L) 4.30 - 5.80 M/cumm [facility] MCV 105.9(H) 81.3 - 96.4 fL [facility] MCH 35.0(H) 27.1 - 33.3 pg [facility] MCHC 33.0 32.3 - 35.7 g/dL [facility] RDW CV 15.9(H) 11.1 - 14.9 % [facility] RDW SD 61.6(H) 35.7 - 48.1 fL [facility] NRBC abs 0.03(H) 0.00 - 0.01 K/cumm [facility] Blood 02/24/2024 4:56 AM CDT 02/24/2024 6:09 AM CDT Josefa Taylor NP LAB BLOOD ORDERABLES Pilar armas Result [address] [place] [address] * (ABNORMAL) Basic metabolic panel (02/24/2024 4:56 AM CDT) [facility] Sodium 137 135 - 145 mmol/L Potassium, pl 4.0 3.3 - 4.9 mmol/L [facility] Chloride 98 97 - 110 mmol/L [facility] CO2 30 22 - 32 mmol/L [facility] Anion gap 9 2 - 15 mmol/L [facility] BUN 19 6 - 25 mg/dL [facility] Creatinine 0.67(L) 0.80 - 1.30 mg/dL [facility] Glucose 288(H) 70 - 199 mg/dL [facility] Comment: Interpretive Data Fasting glucose [...] 9.0 8.5 - 10.3 mg/dL [facility] Blood 02/24/2024 4:56 AM CDT 02/24/2024 6:09 AM CDT Josefa Taylor [employer] LAB BLOOD ORDERABLES Pilar l Result Performing Organization Address [facility]/ZIP Co de Phone Number [address] Department [place] [address] * (ABNORMAL) POCT glucose (02/24/2024 4:14 AM CDT) [facility] Glucose, POC 345(H) 70 - 199 mg/dL Glucose comment 1 Use This Result [facility] Glucose comment 2 RN/MD Notified [facility] Blood 02/24/2024 4:14 AM CDT 02/24/2024 4:14 AM CDT Corbin Cole MD LAB POCT ORDERABLES - DEVICE Final Result Performing Organization Address [facility]/ZIP Co de Phone Number CERNER [address] [address] * POCT glucose (02/24/2024 12:00 AM CDT) Glucose, POC 115 70 - 199 mg/dL Blood 02/24/2024 02/24/2024 12: 00 AM CDT Corbin Cole MD LAB POCT ORDERABLES - DEVICE Final Result ZULEMA [address] [address] * (ABNORMAL) POCT glucose (02/23/2024 8:19 PM CDT) Glucose, POC 336(H) 70 - 199 mg/dL Glucose comment 1 Use This Result [facility] Glucose comment 2 RN/MD Notified ZULEMA Blood 02/23/2024 8:19 PM CDT 02/23/2024 8:19 PM CDT Corbin Cole MD LAB POCT ORDERABLES - DEVICE Final Result Performing Organization Address [facility] Co de Phone Number ZULEMA [address] [place] [address] * (ABNORMAL) POCT glucose (02/23/2024 4:48 PM CDT) Glucose, POC 245(H) 70 - 199 mg/dL Glucose comment 1 Use This Result [facility] Glucose comment 2 RN/MD Notified ZULEMA Blood 02/23/2024 4:48 PM CDT 02/23/2024 4:48 PM CDT us Corbin Cole MD LAB POCT ORDERABLES - DEVICE Final Result Performing Organization Address [facility]/ZIP Co de Phone Number LESLIE[address] [place] [address] * POCT glucose (02/23/2024 11:30 AM CDT) Glucose, POC 118 70 - 199 mg/dL Glucose comment 1 Use This Result ZULEMA Blood 02/23/2024 11:3 0 AM CDT 02/23/2024 11:30 AM CDT Corbin Cole MD LAB POCT ORDERABLES - DEVICE Final Result ZULEMA [address] [facility] Department [place] [address] * Mycoplasma pneumoniae PCR Sputum (02/23/2024 8:53 AM CDT) [facility] M. pneumoniae DNA Not Detected Not Detected [facility] Comment: Interpretive Data: This assay tests for the presence of Mycoplasma pneumoniae. ?? This test is laboratory developed and its performance characteristics were determined by the performing laboratory in a manner consistent with CLIA requirements. This test has not been cleared or approved by the [place].S. Food and Drug Administration. Current Interpretive Data was last revised on 2020. Testing performed by: [facility], [address] [place] [address] Sputum 02/23/2024 8:53 AM CDT 02/23/2024 7:05 PM CDT Corbin Cole MD LAB MICROBIOLOGY - G ENERAL ORDERABLES Final Result ZULEMA [address] [facility] Department [place] [address] [facility] * POCT glucose (02/23/2024 7:36 AM CDT) Glucose, POC 159 70 - 199 mg/dL Glucose comment 1 Use This Result ZULEMA Blood 02/23/2024 7:36 AM CDT 02/23/2024 7:36 AM CDT us Corbin Cole MD LAB POCT ORDERABLES - DEVICE Final Result Performing Organization Address [facility] [[email or web address]] de Phone Number ZULEMA [address] [place] [address] [place] [address] * eGFR (02/23/2024 6:31 AM CDT) eGFR >90 >=60 mL/min/1. 73 [...] interpretive data was last reviewed 2021. Blood 02/23/2024 6:31 AM CDT 02/23/2024 7:19 AM CDT us Josefa Taylor NP LAB BLOOD ORDERABLES Pilar l Result Performing Organization Address [facility] Co de Phone Number ZULEMA [address] [facility] [place] [address] * (ABNORMAL) CBC without differential (02/23/2024 6:31 AM CDT) [facility] WBC 7.7 3.8 - 9.9 K/cumm Hgb 10.5(L) 13.0 - 17.5 g/dL [facility] Hct 31.5(L) 38.9 - 50.3 % [facility] Plt 339 150 - 400 K/cumm [facility] MPV 9.9 9.1 - 12.3 fL [facility] RBC 3.01(L) 4.30 - 5.80 M/cumm [facility] MCV 104.7(H) 81.3 - 96.4 fL [facility] MCH 34.9(H) 27.1 - 33.3 pg [facility] MCHC 33.3 32.3 - 35.7 g/dL [facility] RDW CV 15.5(H) 11.1 - 14.9 % [facility] RDW SD 59.8(H) 35.7 - 48.1 fL [facility] NRBC abs 0.00 0.00 - 0.01 K/cumm [facility] Blood 02/23/2024 6:31 AM CDT 02/23/2024 7:19 AM CDT Josefa Taylor NP LAB BLOOD ORDERABLES Pilar armas Result [facility] [address] [facility] Department [place] [address] * (ABNORMAL) Basic metabolic panel (02/23/2024 6:31 AM CDT) [facility] Sodium 135 135 - 145 mmol/L Potassium, pl 4.2 3.3 - 4.9 mmol/L [facility] Chloride 98 97 - 110 mmol/L [facility] CO2 28 22 - 32 mmol/L [facility] Anion gap 9 2 - 15 mmol/L [facility] BUN 15 6 - 25 mg/dL [facility] Creatinine 0.62(L) 0.80 - 1.30 mg/dL [facility] Glucose 239(H) 70 - 199 mg/dL [facility] Comment: Interpretive Data Fasting glucose [...] 2022. Calcium 8.3(L) 8.5 - 10.3 mg/dL [facility] Blood 02/23/2024 6:31 AM CDT 02/23/2024 7:19 AM CDT Josefa Taylor NP LAB BLOOD ORDERABLES Pilar l Result Performing Organization Address [facility] Co de Phone Number [address] [place] [address] * POCT glucose (02/22/2024 7:17 PM CDT) Glucose, POC 186 70 - 199 mg/dL Glucose comment 1 Use This Result [facility] Glucose comment 2 RN/MD Notified [facility] Blood 02/22/2024 7:17 PM CDT 02/22/2024 7:17 PM CDT Result [facility] Corbin Cole MD LAB POCT ORDERABLES - DEVICE Final Result Performing Organization Address [facility]/ZIP Co de Phone Number [place] [phone] [facility] [place] [address] * POCT glucose (02/22/2024 5:21 PM CDT) Glucose, POC 176 70 - 199 mg/dL Blood 02/22/2024 5:21 PM CDT 02/22/2024 5:21 PM CDT Corbin Cole MD LAB POCT ORDERABLES - DEVICE Final Result Performing Organization Address [facility] Co de Phone Number ZULEMA [address] [address] * Strep pneumoniae antigen, urine Urine (02/22/2024 3:05 PM CDT) S. pneumoniae Ag Negative Negative Comment: [...] Data was last revised on 2023 Urine 02/22/2024 3:05 PM CDT 02/22/2024 5:25 PM CDT Corbin Cole MD LAB MICROBIOLOGY - G ENERAL ORDERABLES Final Result Performing Organization Address [facility] Co de Phone Number LESLIE[address] [address] * Legionella antigen Urine (02/22/2024 3:05 PM CDT) Legionella Ag Negative Negative Comment: Interpretive Data This test detects only Legionella pneumophila serogroup 1 antigen. Testing performed by [facility] ([phone]). Current interpretive data was last revised on 2020. Testing performed by: [facility], [address] [facility], [place]., [address] Urine 02/22/2024 3:05 PM CDT 02/22/2024 7:06 PM CDT Corbin Cole MD LAB MICROBIOLOGY - G ENERAL ORDERABLES Final Result Performing Organization Address City[facility]/ZIP Co de Phone Number ZULEMA [facility] [place] [address] * MRSA Only (Staphylococcus aureus) PCR Nasal (02/22/2024 3:05 PM CDT) Pathologist [facility] PCR Scrn, Methicillin resistant Staphylococcus aureus (MRSA) Not Detected Not Detected Comment: Interpretive Data Testing performed using Nucleic Acid Amplification with the Coferon Xpert MRSA NxG Assay. This assay detects target DNA from mecA, mecC and the SCCmec insertion site of Staphylococcus aureus using Real-Time PCR and has been cleared by the FDA. Performance characteristics have been verified by the [facility]. Current Interpretive Data was last revised on 2023 Nasal 02/22/2024 3:05 PM CDT 02/22/2024 3:30 PM CDT Corbin Cole MD LAB MICROBIOLOGY - G ENERAL ORDERABLES Final Result ZULEMA [address] [facility] Department [place] [address] * Respiratory pathogen panel Nasopharyngeal (02/22/2024 3:05 PM CDT) [facility] Influenza A RNA Not Detected Not Detected Comment:Testing performed by : [facility], [address] [place]., [address] Influenza B RNA Not Detected Not Detected ZULEMA CHAVEZ Comment:Testing performed by : [facility], [address] [place] [address] RSV RNA Not Detected Not Detected ZULEMA CHAVEZ Comment:Testing performed by : [facility], [address] [place] [address] COVID-19 RNA Not Detected Not Detected ZULEMA CHAVEZ Comment:Testing performed by : [facility], [address] [place] [address] Coronavirus 229E RNA Not Detected Not Detected ZULEMA CHAVEZ Comment:Testing performed by : [facility], [address] [place] [address] Coronavirus HKU1 RNA Not Detected Not Detected ZULEMA CHAVEZ Comment:Testing performed by : [facility], [address] [place]., [address] Coronavirus NL63 RNA Not Detected Not Detected CERNER Comment:Testing performed by : [facility], [address] [facility], [address] Coronavirus OC43 RNA Not Detected Not Detected CERNER Comment:Testing performed by : [facility], [address] [facility], [address] Adenovirus DNA Not Detected Not Detected CERNER Comment:Testing performed by : [facility], [address] [facility], [address] Metapneumovirus RNA Not Detected Not Detected CERNER Comment:Testing performed by : [facility], [address] [facility], [address] Rhinovirus/Enterov irus RNA Not Detected Not Detected CERNER Comment:Testing performed by : [facility], [address] [facility], [address] Parainfluenza 1 RNA Not Detected Not Detected CERNER Comment:Testing performed by : [facility], [address] [place]., [address] Parainfluenza 2 RNA Not Detected Not Detected CERNER Comment:Testing performed by : [facility], [address] [place]., [address] Parainfluenza 3 RNA Not Detected Not Detected CERNER Comment:Testing performed by : [facility], [address] [place]., [address] Parainfluenza 4 RNA Not Detected Not Detected CERNER Comment:Testing performed by : [facility], [address] [facility], [address] B. pertussis DNA Not Detected Not Detected CERAVTAR Comment:Testing performed by : [facility], [address] [place]., [address] B. parapertussis DNA Not Detected Not Detected CERNER Comment:Testing performed by : [facility], [address] [place]., [address] C. pneumoniae DNA Not Detected Not Detected ZULEMA CHAVEZ Comment:Testing performed by : [facility], [address] [place]., [address] M. pneumoniae DNA Not Detected Not Detected ZULEMA CHAVEZ Comment:Testing performed by : [facility], [address] [place]., [address] Nasopharyngeal 02/22/2024 3: 05 PM CDT 02/22/2024 4:56 PM CDT Narrative ZULEMA - 02/22/2024 5:56 PM CDT Is the Patient experiencing symptoms consistent with COVID?->Yes Surveillance testing for transplant patient?->No ??Interpretive Data The F[employer]ix FilmArray Respiratory Panel (RP2.1) assay is a [...] assay has FDA clearance for testing of WEB SITE SPECIALIST swabs. ??The performance of additional specimen types has been assessed by the performing laboratory. ??The performance characteristics of this assay have been determined by [facility] Molecular Infectious Disease Laboratory. Current interpretive data was last revised on 22. us Corbin Cole MD LAB MICROBIOLOGY - G ENERAL ORDERABLES Final Result Performing Organization Address [facility] Co de Phone Number ZULEMA [facility] [place] [address] * Lactate (02/22/2024 2:27 PM CDT) Lactate 2.0 0.7 - 2.0 mmol/L Blood 02/22/2024 2:27 PM CDT 02/22/2024 2:31 PM CDT Corbin Cole MD LAB BLOOD ORDERABLES Final Result Performing Organization Address [facility] Co de Phone Number ZULEMA [facility] [place] [address] * XR Chest PA Lateral 2 Views (02/22/2024 12:46 PM CDT) Anatomical Region Laterality Modality Body, Chest N/A Computed Radiogr aphy 02/22/2024 2:02 PM CDT Narrative 02/22/2024 2:09 PM CDT EXAM DESCRIPTION: XR CHEST PA LATERAL 2 VIEWS REASON FOR STUDY: SOB, cough ?? Pt has complaints of cough and sob x3days ? TECHNIQUE: 2 ??radiographic view(s) of the chest. COMPARISON: 02/12/2022 FINDINGS: LUNGS: ??Consolidative airspace opacity in the right apex. HEART/MEDIASTINUM: ??Cardiac silhouette normal in size. Mediastinal and hilar contours appear normal. LINES/TUBES: ??None. BONES: ??No acute osseous abnormality. IMPRESSION: Right apical airspace opacity, suggestive of pneumonia. THIS IS AN ELECTRONICALLY VERIFIED FINAL REPORT 02/22/2024 2:09 PM - Electronically signed by ??Dallas MCCALL D: ??02/22/2024 2:09 PM T: Report ID: [id number] Reading Location: ??[id number] Procedure Note Dallas Gonzalez MD - 02/22/2024 EXAM DESCRIPTION: XR CHEST PA LATERAL 2 VIEWS REASON FOR STUDY: SOB, cough Pt has complaints of cough and sob x3days TECHNIQUE: 2 radiographic view(s) of the chest. COMPARISON: 02/12/2022 FINDINGS: LUNGS: Consolidative airspace opacity in the right apex. HEART/MEDIASTINUM: Cardiac silhouette normal in size. Mediastinal andhilar contours appear normal. LINES/TUBES: None. BONES: No acute osseous abnormality. IMPRESSION: Right apical airspace opacity, suggestive of pneumonia. THIS IS AN ELECTRONICALLY VERIFIED FINAL REPORT 02/22/2024 2:09 PM - Electronically signed by Dallas MCCALL T: Report ID: [id number] Reading Location: [id number] Corbin Cole MD IMG XR PROCEDURES Fi nal Result * (ABNORMAL) POCT glucose (02/22/2024 11:38 AM CDT) Glucose, POC 247(H) 70 - 199 mg/dL Glucose comment 1 Use This Result ZULEMA Blood 02/22/2024 11:3 8 AM CDT 02/22/2024 11:38 AM CDT Corbin Cole MD LAB POCT ORDERABLES - DEVICE Final Result ZULEMA [address] [facility] Department [place] [address] * (ABNORMAL) Blood culture Blood (02/22/2024 10:26 AM CDT) Direct Specimen Exam Stain: Gram Positive Cocci in clusters Time to culture positivity (aerobic media): 36.2 hours Comment:Testing performed by : [facility], [address] [place] [address]., [id number] Report Final Report: Staphylococcus aureus For susceptibility results, refer to accession number [id number] on the blood culture from 02/22/2024 (.) ZULEMA Comment:Testing performed by : [facility], [address] [place] [address]., [id number] Organism STAPHYLOCOCCUS AUREUS ZULEMA Blood 02/22/2024 10:2 6 AM CDT 02/22/2024 1:27 PM CDT Narrative ZULEMA - 02/29/2024 2:09 PM CDT From a different site than #1. [...] organism identification may be performed using the ConsumerBelligene Gram-Positive Blood Culture Assay. This assay detects microbial DNA in positive blood culture broth via hybridization of target DNA to capture oligonucleotides on a microarray. This assay has been cleared by the [place] Food and Drug Administration and its performance characteristics have been verified by the [facility]biology [facility]. 5. ?For questions about this culture, contact the Microbiology Laboratory at [phone]. Interpretive data was last revised on 2020. Corbin Cole MD LAB MICROBIOLOGY - G ENERAL ORDERABLES Final Result ZULEMA CHAVEZ [address] [facility] Department [place] [address] * (ABNORMAL) Blood culture Blood (02/22/2024 10:21 AM CDT) Direct Specimen Exam Molecular Analysis: Staphylococcus aureus, methicillin susceptible (MSSA) detected by the Verigene Blood Culture Nucleic Acid Test. This test does not exclude the possibility of a mixed bacterial infection. Notification of: Staphylococcus aureus, methicillin susceptible (MSSA) called to and read back by: Gareth Suárez MT ([phone]) on 02/23/2024 17:09:44 by: Anjelica Zayas MT Comment:Testing performed by : [facility], [address] [place] [address]., [id number] Direct Specimen Exam Stain: Gram Positive Cocci in clusters Time to culture positivity (aerobic media): 23.8 hours Notification of: Gram Positive Cocci in clusters called to and read back by: Irish Dee MT [phone] on 02/23/2024 13:58:10 by: Quiana Pierre MLS Test result called to and read back by [email or web address] on 02/23/2024 14:08:19 by [email or web address] ZULEMA CHAVEZ Comment:Testing performed by : [facility], [address] [place] [address]., [address] Report Final Report: Staphylococcus aureus Methicillin susceptible (MSSA) by penicillin binding protein 2a (PBP2a) testing. (.) ZULEMA CHAVEZ Comment:Testing performed by : [address] [address] Organism STAPHYLOCOCCUS AUREUS ZULEMA CHAVEZ Blood 02/22/2024 10:2 1 AM CDT 02/22/2024 1:27 PM CDT Narrative ZULEMA CHAVEZ - 02/29/2024 2:09 PM CDT Collection->Peripheral 1. ?Blood cultures are incubated [...] organism identification may be performed using the Consumer[employer]ene Gram-Positive Blood Culture Assay. This assay detects microbial DNA in positive blood culture broth via hybridization of target DNA to capture oligonucleotides on a microarray. This assay has been cleared by the [place] Food and Drug Administration and its performance characteristics have been verified by the [facility]. 5. ?For questions about this culture, contact the Microbiology Laboratory at [phone]. Interpretive data was last revised on 2020. Organism Antibiotic Method Susceptibility Staphylococcus aureus Doxycycline (REYNOLD) INTERPRETATIO N Susceptible Staphylococcus aureus Linezolid (REYNOLD) INTERPRETATIO N Susceptible Staphylococcus aureus Trimethoprim with Sulfamethoxazole (REYNOLD) INTERPRETATION Susceptible Staphylococcus aureus Clindamycin (REYNOLD) INTERPRETATIO N Susceptible Staphylococcus aureus Erythromycin (REYNOLD) INTERPRETATIO N Susceptible Staphylococcus aureus Vancomycin (REYNOLD) INTERPRETATIO N Susceptible Staphylococcus aureus Oxacillin (REYNOLD) INTERPRETATIO N Susceptible Staphylococcus aureus Cefazolin (REYNOLD) INTERPRETATIO N Susceptible Staphylococcus aureus Ceftriaxone (REYNOLD) INTERPRETATIO N Susceptible Corbin Cole MD LAB MICROBIOLOGY - G ENERAL ORDERABLES Final Result Performing Organization Address [facility]/ZIP Co de Phone Number ZULEMA [facility] [place] [address] * POCT glucose (02/22/2024 7:46 AM CDT) [facility] Glucose, POC 191 70 - 199 mg/dL Glucose comment 1 Use This Result ZULEMA Blood 02/22/2024 7:46 AM CDT 02/22/2024 7:46 AM CDT Corbin Cole MD LAB POCT ORDERABLES - DEVICE Final Result Performing Organization Address [facility] Co de Phone Number ZULEMA [address] [facility] [place] [employer] [address] * eGFR (02/22/2024 5:18 AM CDT) [facility] eGFR >90 >=60 mL/min/1. 73 m2 [...] interpretive data was last reviewed 2021. Blood 02/22/2024 5:18 AM CDT 02/22/2024 5:48 AM CDT [facility] LAB BLOOD ORDERABLES Pilar l Result Performing Organization Address [facility] Co de Phone Number [address] [place] [address] * (ABNORMAL) CBC without differential (02/22/2024 5:18 AM CDT) WBC 17.1(H) 3.8 - 9.9 K/cumm Hgb 9.6(L) 13.0 - 17.5 g/dL [facility] Hct 28.6(L) 38.9 - 50.3 % [facility] Plt 317 150 - 400 K/cumm [facility] MPV 10.0 9.1 - 12.3 fL [facility] RBC 2.73(L) 4.30 - 5.80 M/cumm [facility] MCV 104.8(H) 81.3 - 96.4 fL [facility] MCH 35.2(H) 27.1 - 33.3 pg [facility] MCHC 33.6 32.3 - 35.7 g/dL [facility] RDW CV 15.6(H) 11.1 - 14.9 % [facility] RDW SD 59.9(H) 35.7 - 48.1 fL [facility] NRBC abs 0.03(H) 0.00 - 0.01 K/cumm [facility] Blood 02/22/2024 5:18 AM CDT 02/22/2024 5:48 AM CDT Josefaflori Taylor LAB BLOOD ORDERABLES Pilar l Result Performing Organization Address [facility]/ZIP Co de Phone Number LESLIE[address] [place] [place] [address] * (ABNORMAL) Basic metabolic panel (02/22/2024 5:18 AM CDT) Sodium 134(L) 135 - 145 mmol/L Potassium, pl 3.7 3.3 - 4.9 mmol/L [facility] Chloride 97 97 - 110 mmol/L [facility] CO2 29 22 - 32 mmol/L [facility] Anion gap 8 2 - 15 mmol/L [facility] BUN 18 6 - 25 mg/dL [facility] Creatinine 0.75(L) 0.80 - 1.30 mg/dL [facility] Glucose 235(H) 70 - 199 mg/dL [facility] Comment: Interpretive Data Fasting glucose [...] interpretive data was last revised 2022. Calcium 7.8(L) 8.5 - 10.3 mg/dL [facility] Blood 02/22/2024 5:18 AM CDT 02/22/2024 5:48 AM CDT Josefa Taylor NP LAB BLOOD ORDERABLES Pilar l Result [facility] [address] [facility] Department [place] [address] * (ABNORMAL) POCT glucose (02/22/2024 4:24 AM CDT) Glucose, POC 279(H) 70 - 199 mg/dL Glucose comment 1 Use This Result [facility] Blood 02/22/2024 4:24 AM CDT 02/22/2024 4:24 AM CDT Corbin Cole MD LAB POCT ORDERABLES - DEVICE Final Result Performing Organization Address [facility] [[email or web address]] de Phone Number ZULEMA [address] [address] * (ABNORMAL) POCT glucose (02/22/2024 1:58 AM CDT) Glucose, POC 272(H) 70 - 199 mg/dL Glucose comment 1 Use This Result ZULEMA Glucose comment 2 Will Notify Nurse LESLIEAVTAR Blood 02/22/2024 1:58 AM CDT 02/22/2024 1:58 AM CDT us Corbin Cole MD LAB POCT ORDERABLES - DEVICE Final Result Performing Organization Address [facility] de Phone Number ZULEMA [address] [address] * (ABNORMAL) POCT glucose (02/22/2024 12:04 AM CDT) Glucose, POC 262(H) 70 - 199 mg/dL Glucose comment 1 Use This Result LESLIEAVTAR Blood 02/22/2024 12:0 4 AM CDT 02/22/2024 12:04 AM CDT us Corbin Cole MD LAB POCT ORDERABLES - DEVICE Final Result Performing Organization Address [facility] de Phone Number ZULEMA [address] [address] * POCT glucose (02/21/2024 7:44 PM CDT) Glucose, POC 184 70 - 199 mg/dL Glucose comment 1 Use This Result ZULEMA Blood 02/21/2024 7:44 PM CDT 02/21/2024 7:44 PM CDT us Corbin Cole MD LAB POCT ORDERABLES - DEVICE Final Result Performing Organization Address [facility] Co de Phone Number ZULEMA [address] [place] [address] * (ABNORMAL) POCT glucose (02/21/2024 6:26 PM CDT) Glucose, POC 217(H) 70 - 199 mg/dL Glucose comment 1 Use This Result [facility] Glucose comment 2 RN/MD Notified ZULEMA Blood 02/21/2024 6:26 PM CDT 02/21/2024 6:26 PM CDT Corbin Cole MD LAB POCT ORDERABLES - DEVICE Final Result Performing Organization Address [facility] Co de Phone Number LESLIE[address] [address] * POCT glucose (02/21/2024 4:04 PM CDT) Glucose, POC 118 70 - 199 mg/dL Glucose comment 1 Use This Result [facility] Glucose comment 2 RN/MD Notified LESLIEAVTAR Blood 02/21/2024 4:04 PM CDT 02/21/2024 4:04 PM CDT Corbin Cole MD LAB POCT ORDERABLES - DEVICE Final Result Performing Organization Address [facility] Co de Phone Number ZULEMA [address] [place] [address] * (ABNORMAL) POCT glucose (02/21/2024 11:27 AM CDT) Glucose, POC 330(H) 70 - 199 mg/dL Blood 02/21/2024 11:2 7 AM CDT 02/21/2024 11:27 AM CDT us Corbin Cole MD LAB POCT ORDERABLES - DEVICE Final Result Performing Organization Address [facility]/ZIP Co de Phone Number ZULEMA [address] [place] [address] * eGFR (02/21/2024 8:37 AM CDT) Pathologist [facility] eGFR >90 >=60 mL/min/1. 73 m2 Comment: [...] interpretive data was last reviewed 2021. Blood 02/21/2024 8:37 AM CDT 02/21/2024 8:52 AM CDT us Josefa Taylor NP LAB BLOOD ORDERABLES Pilar pawel Result LESLIEUOJ [address] [facility] Department [place] [address] * (ABNORMAL) CBC without differential (02/21/2024 8:37 AM CDT) Pathologist [facility] WBC 9.6 3.8 - 9.9 K/cumm Hgb 12.3(L) 13.0 - 17.5 g/dL [facility] Hct 37.7(L) 38.9 - 50.3 % [facility] Plt 392 150 - 400 K/cumm [facility] MPV 9.9 9.1 - 12.3 fL [facility] RBC 3.50(L) 4.30 - 5.80 M/cumm [facility] MCV 107.7(H) 81.3 - 96.4 fL [facility] MCH 35.1(H) 27.1 - 33.3 pg [facility] MCHC 32.6 32.3 - 35.7 g/dL [facility] RDW CV 15.5(H) 11.1 - 14.9 % [facility] RDW SD 61.1(H) 35.7 - 48.1 fL [facility] NRBC abs 0.00 0.00 - 0.01 K/cumm [facility] Blood 02/21/2024 8:37 AM CDT 02/21/2024 8:52 AM CDT Josefa Taylor WEB SITE SPECIALIST LAB BLOOD ORDERABLES Pilar armas Result [facility] [address] [facility] Department [place] [address] * (ABNORMAL) Basic metabolic panel (02/21/2024 8:37 AM CDT) Sodium 137 135 - 145 mmol/L Potassium, pl 4.0 3.3 - 4.9 mmol/L [facility] Chloride 98 97 - 110 mmol/L [facility] CO2 29 22 - 32 mmol/L [facility] Anion gap 10 2 - 15 mmol/L [facility] BUN 15 6 - 25 mg/dL [facility] Creatinine 0.54(L) 0.80 - 1.30 mg/dL [facility] Glucose 205(H) 70 - 199 mg/dL [facility] Comment: Interpretive Data Fasting glucose [...] 2022. Calcium 8.9 8.5 - 10.3 mg/dL ZULEMA Blood 02/21/2024 8:37 AM CDT 02/21/2024 8:52 AM CDT Josefa Taylor NP LAB BLOOD ORDERABLES Pilar l Result Performing Organization Address [facility]/ZIP Co de Phone Number [address] [place] [address] * Magnesium (02/21/2024 8:37 AM CDT) [facility] Magnesium 2.1 1.4 - 2.5 mg/dL Blood 02/21/2024 8:37 AM CDT 02/21/2024 8:52 AM CDT Josefa Taylor NP LAB BLOOD ORDERABLES Pilar l Result Performing Organization Address [facility] Co de Phone Number [address] [place] [address] * POCT glucose (02/21/2024 8:01 AM CDT) [facility] Glucose, POC 174 70 - 199 mg/dL Blood 02/21/2024 8:01 AM CDT 02/21/2024 8:01 AM CDT Corbin Cole MD LAB POCT ORDERABLES - DEVICE Final Result Performing Organization Address [facility] Co de Phone Number [address] [place] [address] * (ABNORMAL) POCT glucose (02/20/2024 8:39 PM CDT) Glucose, POC 271(H) 70 - 199 mg/dL Glucose comment 1 Use This Result [facility] Glucose comment 2 RN/MD Notified [facility] Blood 02/20/2024 8:39 PM CDT 02/20/2024 8:39 PM CDT us Pacheco Quintanilla MD LAB POCT ORDERABLES - DEV ICE Final Result Performing Organization Address [facility] Co de Phone Number [address] [place] [address] * (ABNORMAL) POCT glucose (02/20/2024 7:25 PM CDT) Glucose, POC 203(H) 70 - 199 mg/dL Glucose comment 1 Use This Result [facility] Glucose comment 2 RN/ Notified [facility] Blood 02/20/2024 7:25 PM CDT 02/20/2024 7:25 PM CDT us Pacheco Quintanilla MD LAB POCT ORDERABLES - DEV ICE Final Result Performing Organization Address [facility] Co de Phone Number [address] [place] [address] * POCT glucose (02/20/2024 6:34 PM CDT) Glucose, POC 181 70 - 199 mg/dL Blood 02/20/2024 6:34 PM CDT 02/20/2024 6:34 PM CDT Pacheco Quintanilla MD LAB POCT ORDERABLES - DEV ICE Final Result Performing Organization Address [facility] Co de Phone Number [address] [address] * Surgical pathology (02/20/2024 12:58 PM CDT) Tissue (Gastric/Stomach biopsy) 02/20/2024 12:58 PM CDT Tissue (Esophageal biopsy) 02/20/2024 12:59 PM CDT Narrative PATHOLOGY [facility] - 02/27/2024 12:23 PM CDT [facility] Department of Pathology [address] [place] [address] ?? Note to Patients: ??This report may contain a detailed description of human tissue sent by a health care provider to the laboratory for pathologic evaluation. ??The content of this report is essential for diagnosis and may provide important critical findings. ??This information may be unfamiliar to patients to review without a medical professional present. ?? It is advised that the patient review this report in the presence of a health care provider who can answer questions and explain the details. Final Report Patient Name: BRI JONES : ??1965 (Age: 58) Gender: ??M Address: ??[address] [place], [place] [address] [facility] #: [id number] Service: Medical Location: Patient Type: [facility] INPATIENT ? Taken: 02/20/2024 Received: 02/20/2024 Accessioned: 02/20/2024 Reported: 02/27/2024 Physician(s): Toño Hillman, DO Diagnosis: A. Stomach, biopsy ? - Antral mucosa with features suggestive of chemical/reactive gastropathy ? - Normal oxyntic mucosa ? - No H. pylori organisms are identified by H&E examination B. Esophagus, biopsy ? - Active esophagitis with ulceration ? - Mildly inflamed cardiofundic mucosa ? - No evidence of intestinal metaplasia, dysplasia, or malignancy ? - No fungal organisms are identified by GMS ? - CMV, HSV1, and HSV2 immunostains are negative for viral inclusions Drea Cisneros MD Report Electronically Reviewed and Signed Out By ??Drea Cisneros MD 02/27/2024 12:23:09 Specimen(s) Received: A: Gastric biopsy B: Esophagus biopsy Microscopic Description: Unless gross-only is specified, the final diagnosis for each specimen is based on a microscopic examination of each tissue sample. Clinical History: The patient is a 58-year-old man with unspecified dysphagia and food impaction of the esophagus. ??Operative procedure: ??Upper GI endoscopy with biopsy. Gross Description Received in two formalin jars labeled with the patient's identifiers. A. ??Labeled gastric biopsy and consists of four freed-pink tissue fragments ranging from 0.2-0.6 cm. ??Entirely submitted. ?? Labeled A1. Jar 0. B. ??Labeled esophagus biopsy rule out EOE and consists of three freed-pink, friable tissue fragments ranging from 0.2-0.3 cm. ??Entirely submitted. ?? Labeled B1. Jar 0. ?? jjmhb/02/20/2024 14:23 DOMITILA Conrad, [facility] Microscopic slide review and interpretation for this case was performed at [facility], Department of Surgical Pathology, [address] [facility], [place] [id number], ??[place], [place] ??[address] ?? CLIA # [id number] The Herpes Simplex Virus I test was performed at [facility], Department of Surgical Pathology, [address] [place], [place] ??[address]. The Herpes Simplex Virus II test was performed at [facility], Department of Surgical Pathology, [address] [place], [place] ??[address]. The Cytomegalovirus test was performed at [facility], Department of Surgical Pathology, [address] [place], [place] ??[address]. Gee Mcdaniel MD LAB PATHOLO GY ORDERABLES Final Result PATHOLOGY [facility] * POCT glucose (02/20/2024 12:43 PM CDT) Glucose, POC 126 70 - 199 mg/dL Blood 02/20/2024 12:4 3 PM CDT 02/20/2024 12:43 PM CDT us Pacheco Quintanilla MD LAB POCT ORDERABLES - DEV ICE Final Result [facility] Department [place] [address] * EGD (02/20/2024 12:37 PM CDT) Anatomical Region Laterality Modality Other Narrative Procedure Note Gee Mcdaniel MD - 02/20/2024 12:37 PM CDT [facility] GI ENDOSCOPY Patient Name: Bri Jones Procedure Date: 02/20/2024 12:37 PM Date of : 1965 Admit Type: Inpatient Age: 58 Gender: Male Attending MD: Gee Ravi M.D. Room: [facility] ENDOSCOPY ROOM 09 [facility] Note Status: Finalized Procedure: Upper GI endoscopy Indications: Dysphagia, Food bolus in the esophagus Referring MD: Physician Florence Providers: Gee Mcdaniel M.D. Medicines: General Anesthesia Complications: No immediate complications. Estimated Blood Loss: Estimated blood loss: none. Procedure: Pre-Anesthesia Assessment: - Prior to the procedure, a History and Physicalwas performed, and patient medications and allergieswere reviewed. The patient is competent. The risks and benefits of the procedure and the sedation optionsand risks were discussed with the patient. Allquestions were answered and informed consent was obtained. Patient identification and proposed procedure were verified by the physician and the nurse in the procedure room. Mental Status Examination: normal. Prophylactic Antibiotics: The patient does notrequire prophylactic antibiotics. Prior Anticoagulants: The patient has taken Xarelto (rivaroxaban), last dosewas 3 days prior to procedure. ASA Grade Assessment:III - A patient with severe systemic disease. After reviewing the risks and benefits, the patient was deemed in satisfactory condition to undergo the procedure. The anesthesia plan was to use general anesthesia. Immediately prior to administration of medications, the patient was re-assessed foradequacy to receive sedatives. The heart rate, respiratory rate, oxygen saturations, blood pressure, adequacyof pulmonary ventilation, and response to care were monitored throughout the procedure. The physical status of the patient was re-assessed after the procedure. The benefits, risks, and alternatives to theprocedure and sedation were discussed and informed consentwas obtained. The scope was passed under direct vision. The GIF-H190 Upper endoscope was introduced through the mouth, and advanced to the second part of duodenum. The upper GI endoscopy was accomplished without difficulty. The patient tolerated the procedure well. Findings: Moderately severe esophagitis with no bleeding was found 33 to 41 cm from the incisors. Biopsies were taken with a cold forceps for histology. Food bolus not present in the esophagus. The Z-line was regular and was found 41 cm from the incisors. There is no endoscopic evidence of hiatal hernia or stricture in the entire esophagus. Patchy mild inflammation characterized by congestion (edema),erosions and erythema was found in the gastric body and in the gastric antrum. Biopsies were taken with a cold forceps for histology. The first portion of the duodenum and second portion of the duodenum were normal. Impression: - Moderately severe erosive esophagitis with no bleeding. Biopsied. No food bolus in theesophagus. - Z-line regular, 41 cm from the incisors. - Gastritis. Biopsied. - Normal first portion of the duodenum and second portion of the duodenum. Recommendation: - [facility]. - Clear liquid diet. Advance as tolerated to mechanical soft diet. - Use Protonix (pantoprazole) 40 mg PO BID for 8weeks. - Use sucralfate suspension 1 gram PO QID for 8weeks. - Repeat upper endoscopy in 3 months to checkhealing. - Await pathology results. - Return to GI clinic in 4 weeks. Gee Mcdaniel M.D. Gee Mcdaniel M.D. 02/20/2024 4:35:34 PM . Number of Addenda: 0 Note Initiated On: 02/20/2024 12:37 PM Recognized by the [employer] for promoting quality in endoscopy Gee Mcdaniel MD ENDOSCOPY P ROCEDURES Final Result * T3, free (02/20/2024 11:39 AM CDT) Free T3 2.6 2.0 - 4.4 pg/mL Blood 02/20/2024 11:3 9 AM CDT 02/20/2024 11:44 AM CDT Narrative ZULEMA - 02/20/2024 2:24 PM CDT This test was reflexed from a Free T4 result. Josefa Taylor NP LAB BLOOD ORDERABLES Pilar l Result LESLIEAVTAR [address] [facility] Department [place] [address] * eGFR (02/20/2024 11:39 AM CDT) eGFR >90 >=60 mL/min/1. 73 [...] interpretive data was last reviewed 2021. Blood 02/20/2024 11:3 9 AM CDT 02/20/2024 11:44 AM CDT Josefa Taylor NP LAB BLOOD ORDERABLES Pilar l Result ZULEMA [address] [facility] Department [place] [address] * T4, free (02/20/2024 11:39 AM CDT) Free T4 1.13 0.90 - 1.70 ng/dL Blood 02/20/2024 11:3 9 AM CDT 02/20/2024 11:44 AM CDT Narrative ZULEMA - 02/20/2024 1:50 PM CDT This test was reflexed from a TSH result. [facility] LAB BLOOD ORDERABLES Pilar l Result Performing Organization Address [facility] Co de Phone Number LESLIE[address] [place] [address] * (ABNORMAL) Thyroid Function [place] (02/20/2024 11:39 AM CDT) TSH 0.17(L) 0.30 - 4.20 mcIUnit/mL Blood 02/20/2024 11:3 9 AM CDT 02/20/2024 11:44 AM CDT Result [facility] NP LAB BLOOD ORDERABLES Pilar l Result Performing Organization Address [facility] de Phone Number [address] [address] * (ABNORMAL) Hemoglobin A1c (02/20/2024 11:39 AM CDT) Hgb A1C 6.7(H) 4.0 - 5.6 % Estimated Average Glucose 146 mg/dL ZULEMA Comment: The ADA recommends reporting an estimated Average Glucose (eAG) with all Hemoglobin A1c results using the equation derived from a study of 507 normal and diabetic adults. ??Minority populations were underrepresented and children were not included. ?? (Diabetes Care 31:1437-0638, 2008). ??The eAG is not equivalent to a fasting glucose. Blood 02/20/2024 11:3 9 AM CDT 02/20/2024 11:44 AM CDT [facility] NP LAB BLOOD ORDERABLES Pilar l Result Performing Organization Address [facility] Co de Phone Number [address] [place] [address] * (ABNORMAL) CBC without differential (02/20/2024 11:39 AM CDT) [facility] WBC 11.9(H) 3.8 - 9.9 K/cumm Hgb 12.0(L) 13.0 - 17.5 g/dL [facility] Hct 35.8(L) 38.9 - 50.3 % [facility] Plt 359 150 - 400 K/cumm [facility] MPV 10.0 9.1 - 12.3 fL [facility] RBC 3.41(L) 4.30 - 5.80 M/cumm [facility] MCV 105.0(H) 81.3 - 96.4 fL [facility] MCH 35.2(H) 27.1 - 33.3 pg [facility] MCHC 33.5 32.3 - 35.7 g/dL [facility] RDW CV 16.1(H) 11.1 - 14.9 % [facility] RDW SD 62.1(H) 35.7 - 48.1 fL [facility] NRBC abs 0.02(H) 0.00 - 0.01 K/cumm [facility] Blood 02/20/2024 11:3 9 AM CDT 02/20/2024 11:44 AM CDT Josefa Taylor NP LAB BLOOD ORDERABLES Pilar armas Result [facility] [address] [facility] Department of Laboratories [place], [place] [id number] * (ABNORMAL) Basic metabolic panel (02/20/2024 11:39 AM CDT) [facility] Sodium 138 135 - 145 mmol/L Potassium, pl 4.0 3.3 - 4.9 mmol/L [facility] Chloride 99 97 - 110 mmol/L [facility] CO2 31 22 - 32 mmol/L [facility] Anion gap 8 2 - 15 mmol/L [facility] BUN 17 6 - 25 mg/dL [facility] Creatinine 0.64(L) 0.80 - 1.30 mg/dL [facility] Glucose 138 70 - 199 mg/dL [facility] Comment: Interpretive Data Fasting glucose [...] 2022. Calcium 8.6 8.5 - 10.3 mg/dL [facility] Blood 02/20/2024 11:3 9 AM CDT 02/20/2024 11:44 AM CDT Josefaflori Taylor LAB BLOOD ORDERABLES Pilar l Result Performing Organization Address [email or web address] de Phone Number [address] [address] * Magnesium (02/20/2024 11:39 AM CDT) Magnesium 1.9 1.4 - 2.5 mg/dL Blood 02/20/2024 11:3 9 AM CDT 02/20/2024 11:44 AM CDT [facility] LAB BLOOD ORDERABLES Pilar l Result Performing Organization Address [facility] [[email or web address]] de Phone Number [address] [place] [address] documented in this encounter Visit Diagnoses Diagnosis Dysphagia- Primary Dysphagia, unspecified type Food impaction of esophagus, initial encounter 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) CAP (community acquired pneumonia) Pneumonia, organism unspecified Food impaction of esophagus documented in this encounter Admitting Diagnoses Diagnosis Dysphagia Food impaction of esophagus documented in this encounter Administered Medications Inactive Administered Medications - up to 3 most recent administrations Medication Order MAR Action Action Date Dose Rate Site acetaminophen (TYLENOL) tablet 650 mg 650 mg, oral, Every 4 hours PRN, 1st line for pain, fever, fever greater than 38.3 C, Starting on Sat02/20/24 at 1126, Indications: Fever, PainIndications:Fever,Pain Given 03/06/2024 4:33 PM CDT 650 mg Given 03/05/2024 10:29 PM CDT 650 mg Given 03/05/2024 5:45 PM CDT 650 mg acyclovir (ZOVIRAX) capsule 400 mg 400 mg, oral, 3 times daily, First dose on Sat02/20/24 at 1600, Indications: Prophylaxis, MedicalIndications:Prophylaxis, Medical Given 03/07/2024 9:02 AM CDT 400 mg Given 03/06/2024 8:49 PM CDT 400 mg Given 03/06/2024 4:33 PM CDT 400 mg albuterol 2.5 mg /3 mL (0.083 %) nebulizer solution 2.5 mg 2.5 mg, nebulization, Every 4 hours (responder), First dose on Angy 02/20/24 at 1415 Given 02/20/2024 1:58 PM CDT 2.5 mg albuterol 2.5 mg/0.5 mL nebulizer solution 2.5 mg 2.5 mg, nebulization, 4 times daily (responder), First dose (after last modification) on Sat02/20/24 at 1900 Given 02/21/2024 7:59 AM CDT 2.5 mg Given 02/20/2024 5:50 PM CDT 2.5 mg albuterol 2.5 mg/0.5 mL nebulizer solution 2.5 mg 2.5 mg, nebulization, Every 6 hours while awake (responder), First dose (after last modification) on Sat02/21/24 at 1500 Given 03/02/2024 2:36 PM CDT 2.5 mg Given 03/02/2024 7:15 AM CDT 2.5 mg Given 03/01/2024 8:40 PM CDT 2.5 mg albuterol 2.5 mg/0.5 mL nebulizer solution 2.5 mg 2.5 mg, nebulization, Every 4 hours PRN (responder), wheezing, Starting on Sat03/02/24 at 2100 Given 03/05/2024 1:38 PM CDT 2.5 mg Given 03/04/2024 7:12 AM CDT 2.5 mg Given 03/03/2024 7:49 PM CDT 2.5 mg albuterol 2.5 mg/0.5 mL nebulizer solution 2.5 mg 2.5 mg, nebulization, Every 6 hours PRN (responder), wheezing, Starting on Sat03/05/24 at 1342 Given 03/05/2024 7:51 PM CDT 2.5 mg albuterol HFA (PROVENTIL HFA,VENTOLIN HFA,PROAIR HFA) 90 mcg/actuation inhaler 2 puff 2 puff, inhalation, Every 6 hours PRN (responder), wheezing, Starting on Sat02/20/24 at 1725 Given 03/02/2024 8:41 PM CDT 2 puffs Given 02/22/2024 11:17 AM CDT 2 puffs Given 02/22/2024 1:37 AM CDT 2 puffs albuterol HFA (PROVENTIL HFA,VENTOLIN HFA,PROAIR HFA) 90 mcg/actuation inhaler 2 puff 2 puff, inhalation, Every 6 hours while awake (responder), First dose (after last modification) on Sat03/03/24 at 0900 Given 03/07/2024 2:12 PM CDT 2 puffs Given 03/07/2024 7:02 AM CDT 2 puffs Given 03/06/2024 9:03 PM CDT 2 puffs atorvastatin (LIPITOR) tablet 40 mg 40 mg, oral, Daily, First dose on Sat02/21/24 at 0900 Given 03/07/2024 9:02 AM CDT 40 mg Given 03/06/2024 8:38 AM CDT 40 mg Given 03/05/2024 8:07 AM CDT 40 mg azithromycin (ZITHROMAX) 500 mg/250 mL in sodium chloride 0.9% (premix) 500 mg 500 mg, intravenous, at 250 mL/hr, Administer over 60 Minutes, Every 24 hours scheduled, First dose on Sat02/22/24 at 1500, Indications: Pneumonia, Community AcquiredIndications:Pneumonia, Community Acquired New Bag 02/23/2024 9:26 AM CDT 500 mg 250 mL/hr New Bag 02/22/2024 4:14 PM CDT 500 mg 250 mL/hr azithromycin (ZITHROMAX) 500 mg/250 mL in sodium chloride 0.9% (premix) 500 mg 500 mg, intravenous, at 250 mL/hr, Administer over 60 Minutes, Once, On Sat02/24/24 at 0900, For 1 dose, Indications: Pneumonia, Community AcquiredIndications:Pneumonia, Community Acquired New Bag 02/24/2024 8:42 AM CDT 500 mg 250 mL/hr benzonatate (TESSALON) capsule 200 mg 200 mg, oral, 3 times daily, First dose on Sat02/22/24 at 0615, Do not crush, chew, cut, dissolve, open or otherwise manipulate tablet/capsule., Indications: CoughIndications:Cough Given 03/07/2024 9:02 AM CDT 200 mg Given 03/06/2024 8:49 PM CDT 200 mg Given 03/06/2024 4:33 PM CDT 200 mg budesonide-formoteroL (SYMBICORT) 160-4.5 mcg/actuation inhaler 2 puff 2 puff, inhalation, 2 times daily (responder), First dose on Sat02/20/24 at 2000, Rinse mouth with water after use. Do not swallow. Given 03/07/2024 7:03 AM CDT 2 puffs Given 03/06/2024 9:03 PM CDT 2 puffs Given 03/06/2024 8:10 AM CDT 2 puffs ceFAZolin (ANCEF) 2,000 mg/20 mL in sterile water (premix) 2,000 mg 2,000 mg, intravenous, at 400 mL/hr, Administer over 3 Minutes, Every 8 hours scheduled, First dose on Sat02/24/24 at 1400, Indications: Blood Stream/Endovascular InfectionIndications:Blood Stream/Endovascular Infection Given 03/03/2024 5:49 AM CDT 2,000 mg 4 00 mL/hr Given 03/02/2024 10:39 PM CDT 2,000 mg 400 mL/hr Given 03/02/2024 2:52 PM CDT 2,000 mg 400 mL/hr cefepime (MAXIPIME) 1,000 mg in sodium chloride 0.9% 100 mL IVPB 1,000 mg, intravenous, at 200 mL/hr, Administer over 30 Minutes, Every 6 hours scheduled, First dose on Sat03/03/24 at 1700, Mini-Bag Plus bag, Indications: Pneumonia, Hospital AcquiredIndications:Pneumonia, Hospital Acquired New Bag 03/07/2024 12:40 PM CDT 1,000 mg 200 mL/hr New Bag 03/07/2024 5:23 AM CDT 1,000 mg 200 mL/hr New Bag 03/06/2024 11:29 PM CDT 1,000 mg 200 mL/hr cefepime (MAXIPIME) 2,000 mg in sodium chloride 0.9% 100 mL IVPB 2,000 mg, intravenous, at 200 mL/hr, Administer over 30 Minutes, Once, On Sat03/03/24 at 1100, For 1 dose, Mini-Bag Plus bag, Indications: Pneumonia, Hospital AcquiredIndications:Pneumonia, Hospital Acquired New Bag 03/03/2024 11:49 AM CDT 2,000 mg 200 mL/hr cefTRIAXone (ROCEPHIN) 2,000 mg/20 mL in sterile water (premix) 2,000 mg 2,000 mg, intravenous, at 240 mL/hr, Administer over 5 Minutes, Every 24 hours scheduled, First dose on Sat02/22/24 at 1500, Indications: Pneumonia, Community AcquiredIndications:Pneumonia, Community Acquired Given 02/24/2024 8:42 AM CDT 2,000 mg 240 mL/hr Given 02/23/2024 9:26 AM CDT 2,000 mg 240 mL/hr Given 02/22/2024 4:14 PM CDT 2,000 mg 240 mL/hr dextrose (D10W) 10% bolus 250 mL 250 mL, intravenous, at 1,000 mL/hr, Administer over 15 Minutes, Every 15 min PRN, blood glucose less than 70 mg/dL and UNABLE to swallow/take PO glucose/juice., Starting on Sat02/21/24 at 1438, After treatment for hypoglycemia, recheck BG followed [...] glucose less than 70 mg/dL, Starting on Sat02/21/24 at 1438, If patient is alert and able to [...] Call MD for each episode of hypoglycemia. BOSOM PRESSER STATES GLUTOSE-15 CONTAINS GLUCOSE 40% W/W (50% W/V), Indications: hypoglycemic disorderIndications:hypoglycemic disorder gabapentin (NEURONTIN) capsule 300 mg 300 mg, oral, 4 times daily, First dose (after last reorder) on Angy 02/20/24 at 1745 Given 03/07/2024 9:02 AM CDT 3 00 mg Given 03/06/2024 8:49 PM CDT 300 mg Given 03/06/2024 4:33 PM CDT 300 mg glucagon injection 1 mg 1 mg, intramuscular, Every 30 min PRN, low blood sugar, blood glucose less than 70 mg/dL AND no IV access AND unable to take PO glucose/juice., Starting on Sat02/21/24 at 1438, After Glucagon is administered, position patient on [...] reconstitution. guaiFENesin ER (MUCINEX) extended release tablet 1,200 mg 1,200 mg, oral, 2 times daily, First dose on [facility] 02/22/24 at 1045, Do not crush, chew, cut, dissolve, open or otherwise manipulate tablet/capsule. Given 03/07/2024 9:02 AM CDT 1,200 mg Given 03/06/2024 8:48 PM CDT 1,200 mg Given 03/06/2024 8:37 AM CDT 1,200 mg hydrocortisone (Solu-CORTEF) preservative free injection 100 mg 100 mg, intravenous, Once, On Angy 02/20/24 at 1415, For 1 dose, For adults rapid IV push administer over 30 seconds Given 02/20/2024 1:51 PM CDT 100 mg insulin glargine (LANTUS, SEMGLEE) 100 unit/mL injection 10 Units 10 Units (rounded from 9.87 Units = 0.15 Units/kg ? 65.8 kg), subcutaneous, Nightly, First dose on Sat02/21/24 at 2100, Do not hold if NPO. Do not mix with other insulins, Indications: Diabetes MellitusIndications:Diabetes Mellitus Given 02/21/2024 8:23 PM CDT 10 Units Right Upper Arm insulin glargine (LANTUS, SEMGLEE) 100 unit/mL injection 12 Units 12 Units, subcutaneous, Nightly, First dose (after last modification) on 02/29/24 at 2100, Do not hold if NPO. Do not mix with other insulins, Indications: Diabetes MellitusIndications:Diabetes Mellitus Given 03/06/2024 8:50 PM CDT 12 Units Left Upper Arm Given 03/05/2024 9:24 PM CDT 12 Units Le ft Forearm Given 03/04/2024 9:25 PM CDT 12 Units Le ft Upper Abdomen insulin glargine (LANTUS, SEMGLEE) 100 unit/mL injection 18 Units 18 Units, subcutaneous, Nightly, First dose (after last modification) on Sat02/28/24 at 2100, Do not hold if NPO. Do not mix with other insulins, Indications: Diabetes MellitusIndications:Diabetes Mellitus Given 02/28/2024 8:58 PM CDT 18 Units Left Upper Arm insulin glargine (LANTUS, SEMGLEE) 100 unit/mL injection 22 Units 22 Units, subcutaneous, Nightly, First dose (after last modification) on 02/22/24 at 2100, Do not hold if NPO. Do not mix with other insulins, Indications: Diabetes MellitusIndications:Diabetes Mellitus Given 02/23/2024 9:15 PM CDT 22 Units Left Lower Abdomen Given 02/22/2024 10:14 PM CDT 22 Units L eft Lower Abdomen insulin glargine (LANTUS, SEMGLEE) 100 unit/mL injection 22 Units 22 Units, subcutaneous, Nightly, First dose (after last modification) on Sat02/26/24 at 2100, Do not hold if NPO. Do not mix with other insulins, Indications: Diabetes MellitusIndications:Diabete s Mellitus Given 02/26/2024 9:34 PM CDT 22 Units Left Lower Abdomen insulin glargine (LANTUS, SEMGLEE) 100 unit/mL injection 26 Units 26 Units, subcutaneous, Nightly, First dose (after last modification) on Sat02/24/24 at 2100, Do not hold if NPO. Do not mix with other insulins, Indications: Diabetes MellitusIndications:Diabete s Mellitus Given 02/25/2024 8:13 PM CDT 26 Units Right Lower Abdomen Given 02/24/2024 8:30 PM CDT 26 Units Le ft Upper Abdomen insulin glargine (LANTUS, SEMGLEE) 100 unit/mL injection 5 Units 5 Units, subcutaneous, Once, On Sat02/22/24 at 0930, For 1 dose, Do not mix with other insulins Given 02/22/2024 10:17 AM CDT 5 Units Left Lower Abdomen insulin lispro (HumaLOG, ADMELOG) 100 unit/mL injection 0-10 Units 0-10 Units, subcutaneous, 3 times daily with meals, First dose on Sat02/27/24 at 1200, Blood glucose mg/dL: 149 or [...] NPO Status, Indications: Diabetes MellitusIndications:Diabetes Mellitus Given 02/28/2024 5:33 PM CDT 4 Units Right Lower Abdomen Given 02/28/2024 1:06 PM CDT 2 Units Ri ght Upper Arm insulin lispro (HumaLOG, ADMELOG) 100 unit/mL injection 0-4 Units 0-4 Units, subcutaneous, Nightly, First dose on Sat02/21/24 at 2100, Blood glucose mg/dL: 199 or less: No insulin 200-249: add 1 unit 250-299: add 2 units 300-349: add 3 units and notify physician for adjustment of insulin orders. 350-399: add 4 units and notify physician for adjustment of insulin orders. Over 400: Notify physician for adjustment of insulin orders. Do NOT hold for NPO Status, Indications: Diabetes MellitusIndications:Diabetes Mellitus Given 02/25/2024 8:13 PM CDT 4 Units Right Lower Abdomen Given 02/24/2024 8:30 PM CDT 1 Units Le ft Upper Abdomen Given 02/23/2024 9:14 PM CDT 3 Units Le ft Lower Abdomen insulin lispro (HumaLOG, ADMELOG) 100 unit/mL injection 0-4 Units 0-4 Units, subcutaneous, Nightly, First dose on 02/29/24 at 2100, Blood glucose mg/dL: 199 or less: No insulin 200-249: add 1 unit 250-299: add 2 units 300-349: add 3 units and notify physician for adjustment of insulin orders. 350-399: add 4 units and notify physician for adjustment of insulin orders. Over 400: Notify physician for adjustment of insulin orders. Do NOT hold for NPO Status, Indications: Diabetes MellitusIndications:Diabetes Mellitus Given 03/05/2024 9:25 PM CDT 1 Units Left Lower Abdomen Given 03/04/2024 9:25 PM CDT 1 Units Ri ght Lower Abdomen Given 03/03/2024 8:21 PM CDT 1 Units Le ft Lower Abdomen insulin lispro (HumaLOG, ADMELOG) 100 unit/mL injection 0-5 Units 0-5 Units, subcutaneous, 4 times daily before meals & nightly, First dose (after last modification) on Angy 02/20/24 at 1745, Blood glucose mg/dL: 149 or less: No [...] NPO Status, Indications: Diabetes MellitusIndications:Diabetes Mellitus Given 02/21/2024 12:41 PM CDT 4 Units Right Lower Abdomen Given 02/21/2024 8:41 AM CDT 1 Units Ri ght Lower Abdomen Given 02/20/2024 9:16 PM CDT 3 Units Ri ght Upper Arm insulin lispro (HumaLOG, ADMELOG) 100 unit/mL injection 0-5 Units 0-5 Units, subcutaneous, 3 times daily with meals, First dose on Sat02/21/24 at 1800, Blood glucose mg/dL: 149 or [...] NPO Status, Indications: Diabetes MellitusIndications:Diabetes Mellitus Given 02/26/2024 5:12 PM CDT 5 Units Left Upper Arm Given 02/26/2024 8:17 AM CDT 1 Units Ri ght Upper Arm Given 02/25/2024 5:49 PM CDT 1 Units Le ft Upper Arm insulin lispro (HumaLOG, ADMELOG) 100 unit/mL injection 0-5 Units 0-5 Units, subcutaneous, Nightly, First dose on Sat02/27/24 at 2100, Blood glucose mg/dL: 149 or [...] NPO Status, Indications: Diabetes MellitusIndications:Diabetes Mellitus Given 02/28/2024 8:58 PM CDT 3 Units Left Upper Arm Given 02/27/2024 9:37 PM CDT 4 Units Le ft Forearm insulin lispro (HumaLOG, ADMELOG) 100 unit/mL injection 0-5 Units 0-5 Units, subcutaneous, 3 times daily with meals, First dose on Sat02/29/24 at 0815, Blood glucose mg/dL: 149 or less: No [...] NPO Status, Indications: Diabetes MellitusIndications:Diabetes Mellitus Given 03/07/2024 12:41 PM CDT 1 Units Righ t Upper Arm Given 03/06/2024 5:57 PM CDT 1 Units Le ft Lower Abdomen Given 03/06/2024 12:35 PM CDT 2 Units R ight Upper Abdomen insulin lispro (HumaLOG, ADMELOG) 100 unit/mL injection 3 Units 3 Units (rounded from 3.29 Units = 0.05 Units/kg ? 65.8 kg), subcutaneous, 3 times daily with meals, First dose on Sat02/21/24 at 1800, If BG greater than or [...] 70 mg/dL., Indications: Diabetes MellitusIndications:Diabetes Mellitus Given 02/22/2024 1:00 PM CDT 3 Units Right Upper Arm Given 02/21/2024 6:29 PM CDT 3 Units Ri ght Lower Abdomen insulin lispro (HumaLOG, ADMELOG) 100 unit/mL injection 4 Units 4 Units, subcutaneous, 3 times daily with meals, First dose (after last modification) on Sat02/26/24 at 1200, If BG greater than or [...] 70 mg/dL., Indications: Diabetes MellitusIndications:Diabetes Mellitus Given 02/26/2024 5:12 PM CDT 4 Units Left Upper Arm Given 02/26/2024 12:33 PM CDT 4 Units L eft Upper Arm insulin lispro (HumaLOG, ADMELOG) 100 unit/mL injection 5 Units 5 Units, subcutaneous, Once, On Sat02/23/24 at 2115, For 1 dose Given 02/23/2024 9:14 PM CDT 5 Units Left Lower Abdomen insulin lispro (HumaLOG, ADMELOG) 100 unit/mL injection 5 Units 5 Units, subcutaneous, Once, On Sat02/24/24 at 0500, For 1 dose Given 02/24/2024 4:48 AM CDT 5 Units Left Lower Abdomen insulin lispro (HumaLOG, ADMELOG) 100 unit/mL injection 6 Units 6 Units, subcutaneous, 3 times daily with meals, First dose (after last modification) on 02/22/24 at 1800, If BG greater than or [...] 70 mg/dL., Indications: Diabetes MellitusIndications:Diabetes Mellitus Given 02/26/2024 8:17 AM CDT 6 Units Right Upper Arm Given 02/25/2024 5:49 PM CDT 6 Units Le ft Upper Arm Given 02/25/2024 12:25 PM CDT 6 Units L eft Lower Abdomen insulin lispro (HumaLOG, ADMELOG) 100 unit/mL injection 8 Units 8 Units, subcutaneous, Once, On [place] 03/01/24 at 2030, For 1 dose Given 03/01/2024 8:24 PM CDT 8 Units Right Lower Abdomen Lactated Ringer's (LR) infusion 50 mL/hr, intravenous, Continuous, Starting on Angy 02/20/24 at 1315, Pre-Op New Bag 02/20/2024 1:40 PM CDT 50 mL/hr 50 mL/hr lidocaine (XYLOCAINE) 10 mg/mL (1 %) injection 100 mg 100 mg (10 mL), subcutaneous, Once, On Sat03/02/24 at 1200, For 1 dose, PICC Insertion, Indications: Administration of Local AnesthesiaIndications:Admi nistration of Local Anesthesia Given 03/02/2024 11:22 AM CDT 10 mg Left Upper Arm loperamide (IMODIUM) capsule 2 mg 2 mg, oral, Once, On Sat02/24/24 at 1100, For 1 dose, Maximum recommended dose 16 mg/day Given 02/24/2024 11:42 AM CDT 2 mg LORazepam (ATIVAN) tablet 0.5 mg 0.5 mg, oral, Once, On Sat02/24/24 at 1700, For 1 dose, Indications: anxietyIndications:anxiety Given 02/24/2024 6:00 PM CDT 0.5 mg methylPREDNISolone sodium succinate (SOLU-medrol) preservative free injection 40 mg 40 mg, intravenous, Administer over 3 Minutes, Every 24 hours scheduled, First dose on Sat02/22/24 at 1500, Administer 125 mg or less over 3 minutes Given 02/23/2024 8:42 AM CDT 40 mg Given 02/22/2024 4:13 PM CDT 40 mg montelukast (SINGULAIR) tablet 10 mg 10 mg, oral, Nightly, First dose on Sat02/20/24 at 2100 Given 03/06/2024 8:49 PM CDT 10 mg Given 03/05/2024 9:23 PM CDT 10 mg Given 03/04/2024 9:25 PM CDT 10 mg morphine injection 2 mg 2 mg, intravenous, Administer over 4 Minutes, Every 3 hours PRN, 1st line for pain, Starting on Sat02/20/24 at 1206, Indications: PainIndications:Pain Given 03/06/2024 9:03 PM CDT 2 mg Given 03/05/2024 9:31 PM CDT 2 mg Given 03/04/2024 12:50 AM CDT 2 mg mycophenolate mofetil (CELLCEPT) tablet 1,000 mg 1,000 mg, oral, 2 times daily, First dose (after last reorder) on Sat02/20/24 at 1830, Do not crush, chew, cut, dissolve, open or otherwise manipulate tablet/capsule. Given 03/07/2024 9:02 AM CDT 1,00 0 mg Given 03/06/2024 4:33 PM CDT 1,000 mg Given 03/06/2024 8:39 AM CDT 1,000 mg nicotine (NICODERM CQ) 21 mg patch 24 hour 1 patch 1 patch, transdermal, Administer over 24 Hours, Daily, First dose on Sat02/22/24 at 0900, Apply a new patch every 24 hours to a clean, dry, hairless site on the upper arm or hip. Rotate site. Medication Applied 03/07/2024 9:03 AM CDT 1 patch Left Shoulder Medication Applied 03/06/2024 8:44 AM CDT 1 patch Right Arm Medication Applied 03/05/2024 8:08 AM CDT 1 patch Left Shoulder ondansetron (ZOFRAN) injection 4 mg 4 mg, intravenous, Administer over 2 Minutes, Every 6 hours PRN, nausea, vomiting, if not tolerating PO, Starting on Angy 02/20/24 at 1126, Indications: Nausea and VomitingIndications:Nausea and Vomiting ondansetron ODT (ZOFRAN-ODT) disintegrating tablet 4 mg 4 mg, oral, Every 6 hours PRN, nausea, vomiting, Starting on Angy 02/20/24 at 1126, Indications: Nausea and VomitingIndications:Nausea and Vomiting pantoprazole DR (PROTONIX) extended release tablet 40 mg 40 mg, oral, 2 times daily, First dose (after last modification) on Sat02/24/24 at 0900, For 60 days, Do not crush, chew, cut, dissolve, open or otherwise manipulate tablet/capsule., Indications: Stress Ulcer ProphylaxisIndications:Stress Ulcer Prophylaxis Given 03/07/2024 9:02 AM CDT 40 mg Given 03/06/2024 8:49 PM CDT 40 mg Given 03/06/2024 8:38 AM CDT 40 mg peg [id number] (ARTIFICAL TEARS) 1-0.2-0.2 % ophthalmic solution 1 drop 1 drop, each eye, 3 times daily PRN, dry eyes, Starting on 02/29/24 at 1227 Given 02/29/2024 4:22 PM CDT 1 drop perflutren lipid (DEFINITY) 1.5 mL in sodium chloride 0.9% 10 mL syringe 1-10 mL, intravenous, Once in imaging, contrast, Starting on Tu02/25/24 at 1446, For 1 dose, Intra-Procedure (CV) Contrast Given 02/25/2024 2:47 PM CDT 2 mL predniSONE (DELTASONE) tablet 10 mg 10 mg, oral, Daily, First dose on Sat03/01/24 at 0900, For 2 doses Given 03/02/2024 8:25 AM CDT 10 mg Given 03/01/2024 8:35 AM CDT 10 mg predniSONE (DELTASONE) tablet 20 mg 20 mg, oral, Daily, First dose on Sat02/28/24 at 0900, For 2 doses Given 02/29/2024 8:36 AM CDT 20 mg Given 02/28/2024 8:52 AM CDT 20 mg predniSONE (DELTASONE) tablet 30 mg 30 mg, oral, Daily, First dose on Sat02/26/24 at 0900, For 2 doses Given 02/27/2024 9:41 AM CDT 30 mg Given 02/26/2024 8:17 AM CDT 30 mg predniSONE (DELTASONE) tablet 40 mg 40 mg, oral, Daily, First dose on Sat02/24/24 at 0900, For 2 doses Given 02/25/2024 9:16 AM CDT 40 mg Given 02/24/2024 8:36 AM CDT 40 mg ramelteon (ROZEREM) tablet 8 mg 8 mg, oral, Nightly PRN, sleep, Starting on Sat02/20/24 at 1126, Indications: Sleep-Onset InsomniaIndications:Sleep-Onset Insomnia Given 03/06/2024 8:49 PM CDT 8 m g Given 03/05/2024 9:27 PM CDT 8 mg Given 03/01/2024 12:05 AM CDT 8 mg rivaroxaban (XARELTO) tablet 20 mg 20 mg, oral, Daily with breakfast, First dose on Sat02/20/24 at 1745, Nurse to discontinue heparin infusion order and associated bolus at first administration of rivaroxaban using 'order condition met' order source. If patient is eating, administer doses of 15 mg or greater with food. If patient is not eating, still administer dose unless instructed differently by provider. , Indications: Prevention of Recurrent Venous Thrombosis in MalignancyIndications:Prevention of Recurrent Venous Thrombosis in Malignancy Given 03/07/2024 9:02 AM CDT 20 mg Given 03/06/2024 8:38 AM CDT 20 mg Given 03/05/2024 8:06 AM CDT 20 mg sodium chloride 0.9 % nebulizer solution - ADS Override Pull Starting on Sat02/21/24 at 1522, For 1 dose, Created by cabinet override Given 02/21/2024 8:06 PM CDT 3 mL sodium chloride 0.9 % nebulizer solution - ADS Override Pull Starting on 02/22/24 at 0706, For 1 dose, Created by cabinet override Given 02/22/2024 7:20 AM CDT 3 mL sodium chloride 0.9 % nebulizer solution - ADS Override Pull Starting on 02/22/24 at 1514, For 1 dose, Created by cabinet override Given 02/22/2024 3:16 PM CDT 3 mL sodium chloride 0.9 % nebulizer solution - ADS Override Pull Starting on 02/22/24 at 1948, For 1 dose, Created by cabinet override Given 02/22/2024 7:51 PM CDT 3 mL sodium chloride 0.9 % nebulizer solution - ADS Override Pull Starting on 02/23/24 at 0715, For 1 dose, Created by cabinet override Given 02/23/2024 7:18 AM CDT 3 mL sodium chloride 0.9 % nebulizer solution - ADS Override Pull Starting on 02/23/24 at 1446, For 1 dose, Created by cabinet override Given 02/23/2024 2:50 PM CDT sodium chloride 0.9 % nebulizer solution - ADS Override Pull Starting on 02/23/24 at 2224, For 1 dose, Created by cabinet override Given 02/23/2024 10:26 PM CDT 3 mL sodium chloride 0.9 % nebulizer solution - ADS Override Pull Starting on 02/24/24 at 0713, For 1 dose, Created by cabinet override Given by Other 02/24/2024 8:41 AM CDT sodium chloride 0.9 % nebulizer solution - ADS Override Pull Starting on Sat02/24/24 at 1309, For 1 dose, Created by cabinet override Given 02/24/2024 1:11 PM CDT 3 mL sodium chloride 0.9 % nebulizer solution - ADS Override Pull Starting on Sat02/25/24 at 0659, For 1 dose, Created by cabinet override Given 02/25/2024 7:07 AM CDT 3 mL sodium chloride 0.9 % nebulizer solution - ADS Override Pull Starting on Sat02/25/24 at 1401, For 1 dose, Created by cabinet override Given 02/25/2024 3:06 PM CDT 3 mL sodium chloride 0.9 % nebulizer solution - ADS Override Pull Starting on Sat02/25/24 at 2051, For 1 dose, Created by cabinet override Given 02/25/2024 9:58 PM CDT sodium chloride 0.9 % nebulizer solution - ADS Override Pull Starting on Sat02/26/24 at 0740, For 1 dose, Created by cabinet override Given 02/26/2024 7:42 AM CDT 3 mL sodium chloride 0.9 % nebulizer solution - ADS Override Pull Starting on Sat02/26/24 at 1408, For 1 dose, Created by cabinet override Given 02/26/2024 2:10 PM CDT 3 mL sodium chloride 0.9 % nebulizer solution - ADS Override Pull Starting on Sat02/27/24 at 0819, For 1 dose, Created by cabinet override Given by Other 02/27/2024 4:57 PM CDT sodium chloride 0.9 % nebulizer solution - ADS Override Pull Starting on Sat02/27/24 at 0819, For 1 dose, Created by cabinet override Given by Other 02/27/2024 4:57 PM CDT sodium chloride 0.9 % nebulizer solution - ADS Override Pull Starting on Sat02/27/24 at 1436, For 1 dose, Created by cabinet override Given by Other 02/27/2024 4:59 PM CDT sodium chloride 0.9 % nebulizer solution - ADS Override Pull Starting on Sat02/28/24 at 0736, For 1 dose, Created by cabinet override Given 02/28/2024 7:38 AM CDT 3 mL sodium chloride 0.9 % nebulizer solution - ADS Override Pull Starting on Sat02/28/24 at 1408, For 1 dose, Created by cabinet override Given 02/28/2024 2:12 PM CDT 3 mL sodium chloride 0.9 % nebulizer solution - ADS Override Pull Starting on Sat02/28/24 at 1949, For 1 dose, Created by cabinet override Given 02/28/2024 7:53 PM CDT 3 mL sodium chloride 0.9 % nebulizer solution - ADS Override Pull Starting on 02/29/24 at 0715, For 1 dose, Created by cabinet override Given 02/29/2024 7:17 AM CDT 3 mL sodium chloride 0.9 % nebulizer solution - ADS Override Pull Starting on 03/01/24 at 0730, For 1 dose, Created by cabinet override Given 03/01/2024 7:32 AM CDT 3 mL sodium chloride 0.9 % nebulizer solution - ADS Override Pull Starting on 03/01/24 at 1406, For 1 dose, Created by cabinet override Given 03/01/2024 2:08 PM CDT 3 mL sodium chloride 0.9 % nebulizer solution - ADS Override Pull Starting on 03/02/24 at 0713, For 1 dose, Created by cabinet override Given 03/02/2024 7:16 AM CDT 3 mL sodium chloride 0.9 % nebulizer solution - ADS Override Pull Starting on 03/02/24 at 1432, For 1 dose, Created by cabinet override Given 03/02/2024 2:37 PM CDT 3 mL sodium chloride 0.9 % nebulizer solution - ADS Override Pull Starting on 03/03/24 at 1946, For 1 dose, Created by cabinet override Given by Other 03/03/2024 8:49 PM CDT sodium chloride 0.9 % nebulizer solution - ADS Override Pull Starting on Sat03/04/24 at 0708, For 1 dose, Created by cabinet override Given 03/04/2024 7:12 AM CDT 3 mL sodium chloride 0.9 % nebulizer solution - ADS Override Pull Starting on Angy 03/05/24 at 1337, For 1 dose, Created by cabinet override Given by Other 03/05/2024 3:17 PM CDT sodium chloride 0.9 % nebulizer solution - ADS Override Pull Starting on Angy 03/05/24 at 1949, For 1 dose, Created by cabinet override Given 03/05/2024 7:51 PM CDT 3 mL sodium chloride 0.9% flush 0.5-20 mL 0.5-20 mL, intra-catheter, Every 8 hours scheduled, First dose on Angy 02/20/24 at 1400, Flush volume based on line type and size. Given 03/07/2024 5:24 AM CDT 10 mL Given 03/06/2024 8:50 PM CDT 10 mL Given 03/06/2024 12:31 PM CDT 10 mL sodium chloride 0.9% flush 5-10 mL 5-10 mL, intra-catheter, Every 12 hours scheduled, First dose on 02/29/24 at 0900, Flush volume based on line type, size, and protocol. Given 03/07/2024 9:04 AM CDT 20 mL Given 03/06/2024 8:50 PM CDT 10 mL Given 03/06/2024 8:44 AM CDT 10 mL sodium chloride 0.9% flush 5-20 mL 5-20 mL, intra-catheter, As needed, line care, with each use, Starting on 02/29/24 at 0739, Flush volume based on line type, size, and protocol. sodium chloride 0.9% infusion 30 mL/hr, intravenous, Continuous, Starting on Sat02/28/24 at 1145, Pre-Procedure (GI) Rate/Dose Verify 02/28/2024 11:41 AM CDT 30 mL/hr New Bag 02/28/2024 11:24 AM CDT 30 mL/hr 30 mL/hr sucralfate (CARAFATE) 100 mg/mL oral suspension 1 g 1 g, oral, 4 times daily (with meals and nightly), First dose on Angy 02/20/24 at 1800 Given 02/23/2024 9:17 PM CDT 1 g Given 02/23/2024 5:38 PM CDT 1 g Given 02/23/2024 12:19 PM CDT 1 g sucralfate (CARAFATE) 100 mg/mL oral suspension 1 g 1 g, oral, 4 times daily (with meals and nightly), First dose (after last modification) on Sat02/24/24 at 1200, For 60 days Given 03/07/2024 12:40 PM CDT 1 g Given 03/07/2024 9:02 AM CDT 1 g Given 03/06/2024 8:49 PM CDT 1 g tacrolimus immediate-release capsule 0.5 mg 0.5 mg, oral, Every other day, First dose on Sat02/21/24 at 0900, Avoid grapefruit juice Given 03/06/2024 8:37 AM CDT 0 .5 mg Given 03/04/2024 9:23 AM CDT 0.5 mg Given 03/02/2024 8:25 AM CDT 0.5 mg tiotropium bromide (SPIRIVA RESPIMAT) 2.5 mcg/actuation inhaler 2 puff 2 puff, inhalation, Daily (responder), First dose on Sat02/21/24 at 0900, Trelegy subs to Symbicort + Spiriva Given 03/07/2024 7:03 AM CDT 2 puffs Given 03/06/2024 8:10 AM CDT 2 puffs Given 03/05/2024 8:30 AM CDT 2 puffs voriCONAZOLE (VFEND) tablet 200 mg 200 mg, oral, 2 times daily, First dose (after last reorder) on Sat02/20/24 at 1830, Indications: Prophylaxis, MedicalIndications:Prophylaxis, Medical Given 03/07/2024 9:02 AM CDT 200 mg Given 03/06/2024 4:33 PM CDT 200 mg Given 03/06/2024 8:38 AM CDT 200 mg documented in this encounter Discontinued Medications Medication Sig Discontinue Reason Start Date End Da te acyclovir (ZOVIRAX) 400 mg tabletIndications: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) TAKE 1 TABLET(400 MG) BY MOUTH EVERY 8 HOURS Error 06/11/2022 02/20/2024 acetaminophen (TYLENOL) 500 mg tablet Take 2 tablets (1,000 mg total) by mouth every 6 (six) hours as needed for pain Error 01/12/2022 02/20/2024 aspirin 81 mg enteric coated tablet Take 1 tablet (81 mg total) by mouth every morning Error 01/01/2023 02/20/2024 blood-glucose meter miscIndications:Type 2 diabetes mellitus with hyperosmolarity 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, with long-term current use of insulin (HCC) 1 Device 3 (three) times a day Error 05/29/2019 02/20/2024 calcium carbonate (TUMS) 500 mg (215 mg elemental) tablet,chewableIndicatio ns:Heartburn Take 20 tablets (10,000 mg total) by mouth 2 (two) times a day as needed Error 02/20/2024 docusate sodium (COLACE) 100 mg capsuleIndications:const ipation Take 1 capsule (100 mg total) by mouth 2 (two) times a day with a glass of water Error 01/12/2022 02/20/2024 ergocalciferol (VITAMIN D) 50,000 unit capsuleIndications:AML (acute myeloid leukemia) in remission ([facility]),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 Error 02/03/2021 02/20/2024 insulin lispro (HumaLOG, ADMELOG) 100 unit/mL pen for injectionIndications:Typ e 2 diabetes mellitus with hyperosmolarity 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, with long-term current use of insulin ([facility]) INJECT 5-10 UNITS TID WITH MEALS PLUS SLIDING SCALE. TDD OF 35 UNITS. Error 02/03/2021 02/20/2024 levalbuterol (XOPENEX HFA) 45 mcg/actuation inhalerIndications:AML (acute myeloid leukemia) in remission ([facility]) Error 06/11/2023 02/20/2024 montelukast (SINGULAIR) 10 mg tabletIndications:AML (acute myeloid leukemia) in remission ([facility]),Llsnz-sdhbpf-bgiz disease (HCC) Take 1 tablet (10 mg total) by mouth daily Error 06/26/2022 02/20/2024 mupirocin (BACTROBAN) 2 % ointmentIndications:Loca l skin infection Apply topically 3 (three) times a day Error 05/22/2023 02/20/2024 mycophenolate mofetil (CELLCEPT) 500 mg tabletIndications: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),Jumzm-uzside-bsqs disease (HCC) TAKE TWO TABLETS BY MOUTH TWICE DAILY @9am & 5pm Error 08/16/2023 02/20/2024 predniSONE (DELTASONE) 10 mg tabletIndications:Chroni c obstructive pulmonary disease, unspecified COPD type (HCC) Take 40mg (4 tablets) daily for 5 days. THEN take 30mg (3 tablets) daily for 5 days. THEN Take 20mg (2 tablets) daily for 5 days. THEN take 10mg (1 tablet) for 5 days. THEN stop. Error 05/02/2023 02/20/2024 ondansetron ODT (ZOFRAN-ODT) 4 mg disintegrating tabletIndications:Preven tion of Post-Operative Nausea and Vomiting Take 1 tablet (4 mg total) by mouth every 8 (eight) hours as needed for nausea or vomiting Error 01/12/2022 02/20/2024 tacrolimus (PROGRAF) 0.5 mg immediate-release capsuleIndications: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) TAKE ONE CAPSULE BY MOUTH EVERY OTHER DAY @ 9AM (VIAL) Error 07/15/2023 02/20/2024 traMADoL (ULTRAM) 50 mg tablet Take 1 tablet (50 mg total) by mouth every 6 (six) hours Error 01/12/2022 02/20/2024 Trelegy Ellipta 200-62.5-25 mcg inhalerIndications:Chron ic obstructive pulmonary disease, unspecified COPD type (HCC) INHALE 1 PUFF BY MOUTH DAILY (BULK) Error 09/16/2023 02/20/2024 voriCONAZOLE (VFEND) 200 mg tabletIndications: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) TAKE ONE TABLET BY MOUTH TWICE DAILY @9am & 5pm Error 05/29/2023 02/20/2024 Xarelto 20 mg tabletIndications: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) TAKE ONE TABLET BY MOUTH DAILY AT 9 AM Error 06/17/2023 02/20/2024 furosemide (LASIX) 20 mg tabletIndications:Type 2 diabetes mellitus with hyperosmolarity 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, with long-term current use of insulin (HCC) Take 1 tablet (20 mg total) by mouth daily As needed. Error 01/15/2020 02/20/2024 rivaroxaban (Xarelto) 20 mg tabletIndications: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) PCP to address as outpatient Stop Taking at Discharge 03/02/2024 03/02/2024 azithromycin (ZITHROMAX) 500 mg tablet Take 1 tablet (500 mg total) by mouth daily for 1 day Stop Taking at Discharge 03/02/2024 03/07/2024 cefdinir (OMNICEF) 300 mg capsule Take 1 capsule (300 mg total) by mouth 2 (two) times a day for 3 days Stop Taking at Discharge 03/02/2024 03/07/2024 documented as of this encounter Historical Medications * This list may reflect changes made after this encounter. guaiFENesin ER (MUCINEX) 600 mg 12 hr tablet Take 1 tablet (600 mg total) by mouth 2 (two) times a day cyanocobalamin (Vitamin B-12) 1,000 mcg tablet Take 1 tablet (1,000 mcg total) by mouth every morning 01/31/2024 guaiFENesin (ROBITUSSIN) syrup 100 mg/5 mL Take 5 mL (100 mg total) by mouth 3 (three) times a day as needed for cough or congestion 4 rivaroxaban (XARELTO) 20 mg tablet Take 1 tablet (20 mg total) by mouth daily with breakfast 4 insulin lispro (HumaLOG, ADMELOG) 100 unit/mL pen for injection Inject 5-10 Units under the skin 3 (three) times a day before meals INJECT 5-10 UNITS TID WITH MEALS PLUS SLIDING SCALE. TDD OF 35 UNITS. 4 voriCONAZOLE (VFEND) 200 mg tablet Take 1 tablet (200 mg total) by mouth 2 (two) times a day @9am & 5pm 4 fluticasone-umec lidin-vilanter (Trelegy Ellipta) 200-62.5-25 mcg inhaler Inhale 1 puff daily 4 tacrolimus 0.5 mg immediate-releas e capsule Take 1 capsule (0.5 mg total) by mouth every other day 4 mycophenolate mofetil (CELLCEPT) 500 mg tablet Take 2 tablets (1,000 mg total) by mouth 2 (two) times a day 4 montelukast (SINGULAIR) 10 mg tablet Take 1 tablet (10 mg total) by mouth nightly 4 insulin glargine 100 unit/mL (3 mL) pen for injection Inject 10 Units under the skin nightly 4 gabapentin (NEURONTIN) 300 mg capsule Take 1 capsule (300 mg total) by mouth 4 (four) times a day @[id number]-9PM 4 acyclovir (ZOVIRAX) 400 mg tablet Take 1 tablet (400 mg total) by mouth every 8 (eight) hours 4 diphenhydrAMINE- acetaminophen (TYLENOL PM) 25-500 mg tablet Take 2 tablets by mouth nightly as needed for sleep 4 acetaminophen (TYLENOL) 500 mg tablet Take 2 tablets (1,000 mg total) by mouth 2 (two) times a day as needed for pain 4 added in this encounter Active and Recently Administered Medications Times are shown in CDT. Scheduled Medication Order 03/05/2024 03/06/2024 03/07/2024 acyclovir (ZOVIRAX) capsule 400 mg 400 mg, oral, 3 times daily, First dose on Sat02/20/24 at 1600, Indications: Prophylaxis, Medical 0807 (Given - Provider: Mary Ann Garcia)1616 (Given - Provider: Aditi Hazel RN)2123 (Given - Provider: Toya Albright RN) 0838 (Given - Provider: Sidra Parks RN)1633 (Given - Provider: Hayley Dykes, BECKI)2049 (Given - Provider: Bonnie Wick, BECKI) 0902 (Given - Provider: Ethel De Jesus RN) albuterol HFA (PROVENTIL HFA,VENTOLIN HFA,PROAIR HFA) 90 mcg/actuation inhaler 2 puff 2 puff, inhalation, Every 6 hours while awake (responder), First dose (after last modification) on Sat03/03/24 at 0900 0830 (Given - Provider: Page Bunch, ALL SOURCE COLLECTION MANAGER)1340 (Not Given - Provider: Page Bunch, ALL SOURCE COLLECTION MANAGER - Reason: Contraindicated)1950 (Not Given - Provider: Anaid Marsh, ALL SOURCE COLLECTION MANAGER - Reason: Patient/family refused - Comment: Pt wanted the albuterol neb because he said it worked better for him) 0810 (Given - Provider: Page Bunch, ALL SOURCE COLLECTION MANAGER)1351 (Given - Provider: Page Bunch, ALL SOURCE COLLECTION MANAGER)2103 (Given - Provider: Tasia Abreu, CLOTH TESTER QUALITY) 0702 (Given - Provider: Pat Busby, ALL SOURCE COLLECTION MANAGER)1412 (Given - Provider: Pat Busby, ALL SOURCE COLLECTION MANAGER) atorvastatin (LIPITOR) tablet 40 mg 40 mg, oral, Daily, First dose on Sat02/21/24 at 0900 0807 (Given - Provider: Mary Ann Garcia) 0838 (Given - Provider: Sidra Parks RN) 0902 (Given - Provider: Ethel De Jesus, BECKI) benzonatate (TESSALON) capsule 200 mg 200 mg, oral, 3 times daily, First dose on Sat02/22/24 at 0615, Do not crush, chew, cut, dissolve, open or otherwise manipulate tablet/capsule., Indications: Cough 0807 (Given - Provider: Mary Ann Garcia)1615 (Given - Provider: Aditi Hazel, BECKI)2123 (Given - Provider: Toya Albright RN) 0837 (Given - Provider: Sidra Parks RN)1633 (Given - Provider: Hayley Dykes, BECKI)2049 (Given - Provider: Bonnie Wick, BECKI) 0902 (Given - Provider: Ethel De Jesus, BECKI) budesonide-formoteroL (SYMBICORT) 160-4.5 mcg/actuation inhaler 2 puff(Linked Group 1) 2 puff, inhalation, 2 times daily (responder), First dose on Angy 02/20/24 at 2000, Rinse mouth with water after use. Do not swallow. 0825 (Given - Provider: Page Bunch, ALL SOURCE COLLECTION MANAGER)1950 (Given - Provider: Anaid Marsh, ALL SOURCE COLLECTION MANAGER) 0810 (Given - Provider: Page Bunch, ALL SOURCE COLLECTION MANAGER)2103 (Given - Provider: Tasia Abreu, CLOTH TESTER QUALITY) 0703 (Given - Provider: Pat Busby, ALL SOURCE COLLECTION MANAGER) cefepime (MAXIPIME) 1,000 mg in sodium chloride 0.9% 100 mL IVPB 1,000 mg, intravenous, at 200 mL/hr, Administer over 30 Minutes, Every 6 hours scheduled, First dose on Sat03/03/24 at 1700, Mini-Bag Plus bag, Indications: Pneumonia, Hospital Acquired 0041 (New Bag - Provider: Denia Ruffin, BECKI)0631 (New Bag - Provider: Denia Ruffin RN)1216 (New Bag - Provider: Mary Ann Garcia)1743 (New Bag - Provider: Aditi Hazel, BECKI)2322 (New Bag - Provider: Toya Albright, BECKI) 0508 (New Bag - Provider: Toya Albright RN)1227 (New Bag - Provider: Sidra Parks, BECKI)1756 (New Bag - Provider: Hayley Dykes, BECKI)2329 (New Bag - Provider: Bonnie Wick, BECKI) 0523 (New Bag - Provider: Bonine Wick RN)1240 (New Bag - Provider: Ethel De Jesus, BECKI) gabapentin (NEURONTIN) capsule 300 mg 300 mg, oral, 4 times daily, First dose (after last reorder) on Sat02/20/24 at 1745 0806 (Given - Provider: Mary Ann Garcia)1217 (Given - Provider: Mary Ann Garcia)1616 (Given - Provider: Aditi Hazel, BECKI)2123 (Given - Provider: Toya Albright, BECKI) 0838 (Given - Provider: Sidra Parks, BECKI)1225 (Given - Provider: Sidra Parks, BECKI)1633 (Given - Provider: Hayley Dykes, BECKI)2049 (Given - Provider: Bonnie Wick, BECKI) 0902 (Given - Provider: Ethel De Jesus, BECKI)1300 (Due) guaiFENesin ER (MUCINEX) extended release tablet 1,200 mg 1,200 mg, oral, 2 times daily, First dose on 02/22/24 at 1045, Do not crush, chew, cut, dissolve, open or otherwise manipulate tablet/capsule. 805 (Given - Provider: Mary Ann Garcia)2122 (Given - Provider: Toya Albright, BECKI) 836 (Given - Provider: Sidra Parks RN)2047 (Given - Provider: Bonnie Wick, BECKI) 901 (Given - Provider: Ethel De Jesus, BECKI) insulin glargine (LANTUS, SEMGLEE) 100 unit/mL injection 12 Units 12 Units, subcutaneous, Nightly, First dose (after last modification) on 02/29/24 at 2100, Do not hold if NPO. Do not mix with other insulins, Indications: Diabetes Mellitus 2123 (Given - Provider: Toya Albright RN) 2049 (Given - Provider: Bonnie Wick, BECKI) insulin lispro (HumaLOG, ADMELOG) 100 unit/mL injection 0-4 Units 0-4 Units, subcutaneous, Nightly, First dose on 02/29/24 at 2100, Blood glucose mg/dL: 199 or less: No insulin 200-249: add 1 unit 250-299: add 2 units 300-349: add 3 units and notify physician for adjustment of insulin orders. 350-399: add 4 units and notify physician for adjustment of insulin orders. Over 400: Notify physician for adjustment of insulin orders. Do NOT hold for NPO Status, Indications: Diabetes Mellitus 2124 (Given - Provider: Toya Albright RN) 2040 (Not Given - Provider: Bonnie Wick, BECKI - Reason: Order parameters not met) insulin lispro (HumaLOG, ADMELOG) 100 unit/mL injection 0-5 Units 0-5 Units, subcutaneous, 3 times daily with meals, First dose on 02/29/24 at 0815, Blood glucose mg/dL: 149 or less: No insulin 150-199: add 1 unit 200-249: add 2 units 250-299: add 3 units 300-349: add 4 units and notify physician for adjustment of insulin orders. 350-399: add 5 units and notify physician for adjustment of insulin orders. Over 400: Notify physician for adjustment of insulin orders. Do NOT hold for NPO Status, Indications: Diabetes Mellitus 0748 (Not Given - Provider: Aditi Hazel RN - Reason: Order parameters not met)1147 (Not Given - Provider: Aditi Hazel RN - Reason: Order parameters not met)1743 (Given - Provider: Aditi Hazel RN) 0839 (Given - Provider: Sidra Parks RN)1235 (Given - Provider: Sidra Parks, BECKI)1757 (Given - Provider: Hayley Dykes, BECKI) 0830 (Not Given - Provider: Ethel De Jesus, BECKI - Reason: Order parameters not met)1241 (Given - Provider: Ethel De Jesus, BECKI) montelukast (SINGULAIR) tablet 10 mg 10 mg, oral, Nightly, First dose on Angy 02/20/24 at 2100 2123 (Given - Provider: Toya Albright RN) 2049 (Given - Provider: Bonnie Wick, BECKI) mycophenolate mofetil (CELLCEPT) tablet 1,000 mg 1,000 mg, oral, 2 times daily, First dose (after last reorder) on Angy 02/20/24 at 1830, Do not crush, chew, cut, dissolve, open or otherwise manipulate tablet/capsule. 0808 (Given - Provider: Mary Ann Garcia)1616 (Given - Provider: Aditi Hazel RN) 0839 (Given - Provider: Sidra Parks, BECKI)1633 (Given - Provider: Hayley Dykes, BECKI) 0902 (Given - Provider: Ethel De Jesus, BECKI) nicotine (NICODERM CQ) 21 mg patch 24 hour 1 patch 1 patch, transdermal, Administer over 24 Hours, Daily, First dose on 02/22/24 at 0900, Apply a new patch every 24 hours to a clean, dry, hairless site on the upper arm or hip. Rotate site. 0807 (Medication Removed - Provider: Mary Ann Garcia - Comment: removed from right shoulder)0808 (Medication Applied - Provider: Mary Ann Garcia) 0842 (Medication Removed - Provider: Sidra Parks RN)0844 (Medication Applied - Provider: Sidra Parks RN) 09 (Medication Applied - Provider: Ethel De Jesus, BECKI)09 (Medication Removed - Provider: Ethel De Jesus, BECKI)1450 (Due: Medication Removed - Provider: Automatic Discharge Provider - Comment: Time automatically adjusted from order being discontinued) pantoprazole DR (PROTONIX) extended release tablet 40 mg 40 mg, oral, 2 times daily, First dose (after last modification) on Sat02/24/24 at 0900, For 60 days, Do not crush, chew, cut, dissolve, open or otherwise manipulate tablet/capsule., Indications: Stress Ulcer Prophylaxis 805 (Given - Provider: Mary Ann Garcia)2122 (Given - Provider: Toya Albright, BECKI) 08 (Given - Provider: Sidra Parks, BECKI)2048 (Given - Provider: Bonnie Wick RN) 09 (Given - Provider: Ethel De Jesus RN) rivaroxaban (XARELTO) tablet 20 mg 20 mg, oral, Daily with breakfast, First dose on Angy 02/20/24 at 1745, Nurse to discontinue heparin infusion order and associated bolus at first administration of rivaroxaban using 'order condition met' order source. If patient is eating, administer doses of 15 mg or greater with food. If patient is not eating, still administer dose unless instructed differently by provider. , Indications: Prevention of Recurrent Venous Thrombosis in Malignancy 08 (Given - Provider: Mary Ann Garcia) 08 (Given - Provider: Sidra Parks RN) 09 (Given - Provider: Ethel De Jesus, BECKI) sodium chloride 0.9% flush 0.5-20 mL 0.5-20 mL, intra-catheter, Every 8 hours scheduled, First dose on Angy 02/20/24 at 1400, Flush volume based on line type and size. 0632 (Not Given - Provider: Denia Ruffin RN - Reason: Other)1254 (Given - Provider: Aditi Hazel RN)2222 (Given - Provider: Toya Albright RN) 0508 (Given - Provider: Toya Albright RN)1231 (Given - Provider: Sidra Parks, BECKI)205 (Given - Provider: Bonnie Wick, BECKI) 0524 (Given - Provider: Bonnie Wick RN)1400 (Due) sodium chloride 0.9% flush 5-10 mL 5-10 mL, intra-catheter, Every 12 hours scheduled, First dose on Sat02/29/24 at 0900, Flush volume based on line type, size, and protocol. 0809 (Given - Provider: Mary Ann Garcia)212 (Given - Provider: Toya Albright RN) 0844 (Given - Provider: Sidra Parks, BECKI)2049 (Given - Provider: Bonnie Wick, BECKI) 0904 (Given - Provider: Ethel De Jesus RN - Comment: additional extension tubing present) sucralfate (CARAFATE) 100 mg/mL oral suspension 1 g 1 g, oral, 4 times daily (with meals and nightly), First dose (after last modification) on Sat02/24/24 at 1200, For 60 days 0806 (Given - Provider: Mary Ann Garcia)1217 (Given - Provider: Mary Ann Garcia)1743 (Given - Provider: Aditi Hazel, BECKI)2124 (Given - Provider: Toya Albright RN) 0839 (Given - Provider: Sidra Parks, BECKI)1226 (Given - Provider: Sidra Parks, BECKI)1756 (Given - Provider: Hayley Dykes RN)2049 (Given - Provider: Bonnie Wick, BECKI) 0902 (Given - Provider: Ethel De Jesus, BECKI)1240 (Given - Provider: Ethel De Jesus, BECKI) tacrolimus immediate-release capsule 0.5 mg 0.5 mg, oral, Every other day, First dose on Sat02/21/24 at 0900, Avoid grapefruit juice 0837 (Given - Provider: Sidra Parks RN) tiotropium bromide (SPIRIVA RESPIMAT) 2.5 mcg/actuation inhaler 2 puff(Linked Group 1) 2 puff, inhalation, Daily (responder), First dose on Sat02/21/24 at 0900, Trelegy subs to Symbicort + Spiriva 0830 (Given - Provider: Page Bunch ALL SOURCE COLLECTION MANAGER) 0810 (Given - Provider: Page Bunch ALL SOURCE COLLECTION MANAGER) 0703 (Given - Provider: Pat Busby, ALL SOURCE COLLECTION MANAGER) voriCONAZOLE (VFEND) tablet 200 mg 200 mg, oral, 2 times daily, First dose (after last reorder) on Sat02/20/24 at 1830, Indications: Prophylaxis, Medical 0808 (Given - Provider: Mary Ann Garcia)1616 (Given - Provider: Aditi Hazel, BECKI) 0838 (Given - Provider: Sidra Parks, BECKI)1633 (Given - Provider: Hayley Dykes, BECKI) 0902 (Given - Provider: Ethel De Jesus, BECKI) PRN Medication Order 03/05/2024 03/06/2024 03/07/2024 acetaminophen (TYLENOL) tablet 650 mg 650 mg, oral, Every 4 hours PRN, 1st line for pain, fever, fever greater than 38.3 C, Starting on Sat02/20/24 at 1126, Indications: Fever, Pain 1745 (Given - Provider: Aditi Hazel, BECKI)2229 (Given - Provider: Toya Albright, BECKI) 1633 (Given - Provider: Hayley Dykes, BECKI) albuterol 2.5 mg/0.5 mL nebulizer solution 2.5 mg (CANCELED) 2.5 mg, nebulization, Every 4 hours PRN (responder), wheezing, Starting on Sat03/02/24 at 2100 1338 (Given - Provider: Paeg Bunch, ALL SOURCE COLLECTION MANAGER) albuterol 2.5 mg/0.5 mL nebulizer solution 2.5 mg 2.5 mg, nebulization, Every 6 hours PRN (responder), wheezing, Starting on Sat03/05/24 at 1342 1951 (Given - Provider: Anaid Marsh, ALL SOURCE COLLECTION MANAGER) Carrier Fluids for Secondary Infusion - 0.9% Sodium Chloride 30 mL, intravenous, As needed, For priming tubing and/or flushing, Starting on Sat02/20/24 at 1125, 0-250 ml/hr to flush line after IV infusions when no maintenance IV ordered. Infuse 30mL at the same rate as the secondary infusion. Run as primary IV, not intended for KVO. dextrose (D10W) 10% bolus 250 mL(Linked Group 2) 250 mL, intravenous, at 1,000 mL/hr, Administer over 15 Minutes, Every 15 min PRN, blood glucose less than 70 mg/dL and UNABLE to swallow/take PO glucose/juice., Starting on Sat02/21/24 at 1438, After treatment for hypoglycemia, recheck BG followed by treatment every 15 minutes until the BG is greater than 100 mg/dL. Then check BG 1 hour post treatment. If BG is less than 100 mg/dL, repeat Q15 minute BG checks and treatment. Call MD for each episode of hypoglycemia., Indications: hypoglycemic disorder dextrose (GLUTOSE) 40 % gel 15 g(Linked Group 2) 15 g, oral, Every 15 min PRN, low blood sugar, blood glucose less than 70 mg/dL, Starting on Sat02/21/24 at 1438, If patient is alert and able to [...] Call MD for each episode of hypoglycemia. BOSOM PRESSER STATES GLUTOSE-15 CONTAINS GLUCOSE 40% W/W (50% W/V), Indications: hypoglycemic disorder glucagon injection 1 mg 1 mg, intramuscular, Every 30 min PRN, low blood sugar, blood glucose less than 70 mg/dL AND no IV access AND unable to take PO glucose/juice., Starting on Sat02/21/24 at 1438, After Glucagon is administered, position patient on [...] 1 mL SWFI. Use immediately following reconstitution. morphine injection 2 mg 2 mg, intravenous, Administer over 4 Minutes, Every 3 hours PRN, 1st line for pain, Starting on Angy 02/20/24 at 1206, Indications: Pain 2130 (Given - Provider: Toya Albright, RN) 2102 (Given - Provider: Bonnie Wick, RN) ondansetron (ZOFRAN) injection 4 mg(Linked Group 3) 4 mg, intravenous, Administer over 2 Minutes, Every 6 hours PRN, nausea, vomiting, if not tolerating PO, Starting on Angy 02/20/24 at 1126, Indications: Nausea and Vomiting ondansetron ODT (ZOFRAN-ODT) disintegrating tablet 4 mg(Linked Group 3) 4 mg, oral, Every 6 hours PRN, nausea, vomiting, Starting on Angy 02/20/24 at 1126, Indications: Nausea and Vomiting peg 532-pldhnaklivcy-aghfalym (ARTIFICAL TEARS) 1-0.2-0.2 % ophthalmic solution 1 drop 1 drop, each eye, 3 times daily PRN, dry eyes, Starting on 02/29/24 at 1227 ramelteon (ROZEREM) tablet 8 mg 8 mg, oral, Nightly PRN, sleep, Starting on Angy 02/20/24 at 1126, Indications: Sleep-Onset Insomnia 2126 (Given - Provider: Toya Albright, RN) 2048 (Given - Provider: Bonnie Wick, RN) sodium chloride 0.9% flush 0.5-20 mL 0.5-20 mL, intra-catheter, As needed, line care, Starting on Angy 02/20/24 at 1125, Flush volume based on line type and size. Flush before and after each use. sodium chloride 0.9% flush 5-20 mL 5-20 mL, intra-catheter, As needed, line care, with each use, Starting on 02/29/24 at 0739, Flush volume based on line type, size, and protocol. No Frequency Medication Order 03/05/2024 03/06/2024 03/07/2024 sodium chloride 0.9 % nebulizer solution - ADS Override Pull (COMPLETED) Starting on Angy 03/05/24 at 1337, For 1 dose, Created by cabinet override 1517 (Given by Other - Provider: Aditi Hazel RN) sodium chloride 0.9 % nebulizer solution - ADS Override Pull (COMPLETED) Starting on Sat03/05/24 at 1949, For 1 dose, Created by cabinet override 1950 (Given - Provider: Anaid Marsh CRTT) Linked Groups Order Group 1: budesonide-formoteroL (SYMBICORT) 160-4.5 mcg/actuation inhaler 2 puffJump to med 2 puff, inhalation, 2 times daily (responder), First dose on Sat02/20/24 at 2000, Rinse mouth with water after use. Do not swallow. And tiotropium bromide (SPIRIVA RESPIMAT) 2.5 mcg/actuation inhaler 2 puffJump to med 2 puff, inhalation, Daily (responder), First dose on Sat02/21/24 at 0900, Trelegy subs to Symbicort + Spiriva Group 2: dextrose (GLUTOSE) 40 % gel 15 gJump to med 15 g, oral, Every 15 min PRN, low blood sugar, blood glucose less than 70 mg/dL, Starting on Sat02/21/24 at 1438, If patient is alert and able to [...] Call MD for each episode of hypoglycemia. BOSOM PRESSER STATES GLUTOSE-15 CONTAINS GLUCOSE 40% W/W (50% W/V), Indications: hypoglycemic disorder Or dextrose (D10W) 10% bolus 250 mLJump to med 250 mL, intravenous, at 1,000 mL/hr, Administer over 15 Minutes, Every 15 min PRN, blood glucose less than 70 mg/dL and UNABLE to swallow/take PO glucose/juice., Starting on Sat02/21/24 at 1438, After treatment for hypoglycemia, recheck BG followed by treatment every 15 minutes until the BG is greater than 100 mg/dL. Then check BG 1 hour post treatment. If BG is less than 100 mg/dL, repeat Q15 minute BG checks and treatment. Call MD for each episode of hypoglycemia., Indications: hypoglycemic disorder Group 3: ondansetron ODT (ZOFRAN-ODT) disintegrating tablet 4 mgJump to med 4 mg, oral, Every 6 hours PRN, nausea, vomiting, Starting on Angy 02/20/24 at 1126, Indications: Nausea and Vomiting Or ondansetron (ZOFRAN) injection 4 mgJump to med 4 mg, intravenous, Administer over 2 Minutes, Every 6 hours PRN, nausea, vomiting, if not tolerating PO, Starting on Angy 02/20/24 at 1126, Indications: Nausea and Vomiting documented in this encounter Orders Medications Ordered That Girma ht Not Have Been Administered Count Last Ordered Date First Ordered Date lidocaine-EPINEPHrine (XYLOC NEVIN with EPI) 1 %-1:100,000 injection 10 mL 1 03/02/2024 insulin glargine (LANTUS, SE MGLEE) 100 unit/mL injection 15 Units 2 02/29/2024 02/22/2024 lidocaine (PF) (XYLOCAINE) 1 0 mg/mL (1 %) preservative free injection 10-20 mg 1 02/29/2024 sodium chloride 0.9 % nebuli zer solution - ADS Override Pull 5 02/29/2024 02/20/2024 sodium chloride 0.9% flush 5-20 mL 1 2023 simethicone (MYLICON) 66.7 m g/mL oral drops 1 02/28/2024 sodium chloride 0.9% flush 0.5-20 mL 3 02/1602/20/[address] (PROTONIX) e xtended release tablet 40 mg 1 02/24/2024 predniSONE (DELTASONE) tablet 5 mg 1 2023 vancomycin 1,000 mg/250 mL i n sodium chloride 0.9% (premix) 1,000 mg 1 02/24/2024 vancomycin 1500 mg/250 mL in sodium chloride 0.9% (premix) 1,500 mg 1 02/24/2024 dextrose (D10W) 10% bolus 250 mL 2 02/21/20 24 02/20/2024 dextrose (GLUTOSE) 40 % gel 15 g 2 02/21/20 24 02/20/2024 glucagon injection 1 mg 2 02/21/2024 04/0 02/2024 albuterol HFA (PROVENTIL HFA ,VENTOLIN HFA,PROAIR HFA) 90 mcg/actuation inhaler 2 puff 1 02/20/2024 aspirin enteric coated tablet 81 mg 1 02/19 Carrier Fluids for Secondary Infusion - 0.9% Sodium Chloride 1 02/20/2024 diphenhydrAMINE (BENADRYL) 5 0 mg/mL injection 12.5 mg 1 02/20/2024 docusate sodium (COLACE) capsule 100 mg 1 0 02/20/2024 fentaNYL (SUBLIMAZE) preserv ative free injection 25 mcg 1 02/20/2024 tfcdryiqqjx-wxrbzjebx-vygsws er (TRELEGY ELLIPTA) 200-62.5-25 mcg inhaler 1 puff 1 02/20/2024 gabapentin (NEURONTIN) capsule 300 mg 1 02/2024 hydrALAZINE (APRESOLINE) injection 5 mg 1 0 02/20/2024 HYDROmorphone (DILAUDID) injection 0.2 mg 1 02/20/2024 HYDROmorphone (DILAUDID) injection 0.4 mg 1 02/20/2024 insulin lispro (HumaLOG, ADM ELOG) 100 unit/mL injection 0-5 Units 1 02/20/2024 labetaloL (NORMODYNE,TRANDAT E) injection 5 mg 1 02/20/2024 Lactated Ringer's (LR) infusion 2 meperidine (DEMEROL) preserv ative free injection 25 mg 1 02/20/2024 metoclopramide (REGLAN) 5 mg /mL injection 10 mg 1 02/20/2024 mycophenolate mofetil (CELLC EPT) tablet 1,000 mg 1 02/20/2024 naloxone (NARCAN) 0.4 mg/mL injection 0.04-0.4 mg 1 02/20/2024 ondansetron (ZOFRAN) injection 4 mg 2 02/19 ondansetron ODT (ZOFRAN-ODT) disintegrating tablet 4 mg 1 02/20/2024 polyethylene glycol (MIRALAX) packet 17 g 1 02/20/2024 sodium chloride 0.9% infusion 1 02/20/2024 traMADoL (ULTRAM) tablet 50 mg 1 02/20/2024 voriCONAZOLE (VFEND) tablet 200 mg 1 2023 Lab Orders Without Results Count Last Ordered D ate First Ordered Date POCT GLUCOSE DEVICE 136 03/07/2024 02/20/20 Imaging Orders Without Results Count Last Order ed Date First Ordered Date PEP THERAPY/AIRWAY CLEARANCE 45 03/06/2024 02/22/2024 Diet Count Last Ordered Date First Orde red Date ADULT DISCHARGE DIET 1 03/02/2024 Nursing Count Last Ordered Date First Orde red Date DISCHARGE INSTRUCTIONS 2 03/02/2024 FOLLOW UP WITH ESTABLISHED PROVIDER 2 03/02 VERIFY INFORMED CONSENT 3 02/28/2024 04/02/2024 WEIGH PATIENT 1 02/20/2024 Consult Count Last Ordered Date First Orde red Date IP CONSULT TO VASCULAR ACCESS TEAM 1 2023 IP CONSULT TO NUTRITION SERVICES 2 02/24/20 24 02/20/2024 IP CONSULT TO GASTROENTEROLOGY 1 02/20/2024 Isolation Count Last Ordered Date First Orde red Date INITIATE CONTACT ISOLATION 1 02/22/2024 INITIATE DROPLET ISOLATION 1 02/22/2024 Admission Count Last Ordered Date First Orde red Date ADMIT TO INPATIENT 1 02/20/2024 Discharge Count Last Ordered Date First Orde red Date DISCHARGE PATIENT 1 03/07/2024 CORE MEASURES Count Last Ordered Date First Ord ered Date REASON FOR NO VTE PROPHYLAXIS AT ADMISSION 1 02/20/2024 Case Request Count Last Ordered Date First Orde red Date CASE REQUEST GI 2 02/28/2024 02/20/2024 documented in this encounter Additional Health Concerns Infection Onset Date Last Indicated Resolved Time COVID: Suspected 02/22/2024 02/22/2024 02/22/2024 5:57 PM CDT documented as of this encounter 

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
--- OUTSIDE RECORDS SUMMARY | 2024-11-22 10:51 | XMS_ITS | Encounter Summary ---
Author Organization [facility] Address [address] [place] [address] Phone Care Team Providers Care Principal System Software Engineer Name Role Phone Josué Del Valle MD PhD Unavailable [phone] Kirt Lindsay DO Primary Care Provider [phone] Cal Carranza DO Unavailable [phone] Halie Khan MD Unavailable [phone] Reason for Visit * Reason Onset Date Comments Warning Letter 02/25/2024 Encounter Details Date Type Department Care Team (Late st Contact Info) Description 02/25/2024 Telephone [facility] Endocrinology Metabolism and Lipid [address] [facility] Advanced [facility] 13[address] [place] [address] [place] [id number] Arleen Camejo RMA Warning Letter Social History Tobacco Use Types Packs/Day Years Used Date Smoking Tobacco: Some Days Cigarettes 0.5 40 Started: 1985 Smokeless Tobacco: Never Comments:pt states tried to quit [facility] Utilities Answer Date [...] often do you attend chur ch or church services? Never 02/20/2024 Do you belong to any clubs o r organizations such as latter-day groups, unions, fraternal or athletic groups, or [...] in a skilled nursing (including now)? No 02/20/2024 Personal Safety Answer Date Recorded Have you ever been in or are you currently in a harmful physical or emotional relationship or is someone making you feel afraid or unsafe? 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 Male 10:48 AM RISK MANAGEMENT DIRECTOR Gender Identity Not on file Sexual Orientation Not on file documented as of this encounter Miscellaneous Notes * Telephone Encounter - Arleen Camejo RMA - 02/25/2024 3:02 PM CDT Warning letter mailed to patient. See Media for letter. documented in this encounter Plan of Treatment Not on file documented as of this encounter Visit Diagnoses Not on filedocumented in this encounter Care Teams Principal System Software Engineer Relationship Specialty Start Date End Date Kirt Lindsay DO PCP - General Internal Medicine 02/02/21 Josué Del Valle MD PhD Medical Oncologist/Polysomnograph Tech Medical Oncology 08/26/19 Cal Carranza DO [address] [place], [place] [id number] Clerk Internal Medicine 06/12/23 Halie Khan MD [address] [place] [address] [facility] 06/12/23 documented as of this encounter
--- OUTSIDE RECORDS SUMMARY | 2024-11-22 10:51 | XMS_ITS | Encounter Summary ---
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 [facility] Glucose 182 70 - 199 mg/dL [facility] Comment: Interpretive Data Fasting glucose [...] 2022. Calcium 8.6 8.5 - 10.3 mg/dL [facility] [place] Blood 03/06/2024 12:1 6 AM CDT 03/06/2024 12:39 AM CDT Diana Rivera DO LAB BLOOD ORDERABLES Final Resul t Performing Organization Address [facility] Co de Phone Number [address] [place] [address] * (ABNORMAL) POCT glucose (03/05/2024 11:49 PM CDT) Glucose, POC 212(H) 70 - 199 mg/dL Glucose comment 1 Use This Result [facility] Blood 03/05/2024 11:4 9 PM CDT 03/05/2024 11:49 PM CDT Gianna Dey MD LAB POCT ORDERABLES - DEVICE Final Result Performing Organization Address [facility] de Phone Number [address] [address] * (ABNORMAL) POCT glucose (03/05/2024 8:23 PM CDT) Glucose, POC 222(H) 70 - 199 mg/dL Blood 03/05/2024 8:23 PM CDT 03/05/2024 8:23 PM CDT Gianna Dey MD LAB POCT ORDERABLES - DEVICE Final Result Performing Organization Address [facility] Co de Phone Number [address] [place] [address] * POCT glucose (03/05/2024 4:25 PM CDT) Glucose, POC 185 70 - 199 mg/dL Glucose comment 1 Use This Result [facility] Glucose comment 2 RN/MD Notified [facility] Blood 03/05/2024 4:25 PM CDT 03/05/2024 4:25 PM CDT Gianna Dey MD LAB POCT ORDERABLES - DEVICE Final Result Performing Organization Address [facility] Co de Phone Number [address] [place] [address] * POCT glucose (03/05/2024 11:10 AM CDT) [facility] Glucose, POC 83 70 - 199 mg/dL Blood 03/05/2024 11:1 0 AM CDT 03/05/2024 11:10 AM CDT Gianna Dey MD LAB POCT ORDERABLES - DEVICE Final Result Performing Organization Address [facility] de Phone Number [address] [place] [address] * (ABNORMAL) Manual Differential (03/05/2024 7:49 AM CDT) [facility] Differential Manual Cells Counted 100 [facility] Neutrophil abs 10.2(H) 1.5 - 6.5 K/cumm [facility] Lymphocyte abs 2.4 0.8 - 3.3 K/cumm [facility] Monocyte abs 1.3(H) 0.2 - 0.8 K/cumm [facility] Eosinophil abs 0.1 0.0 - 0.5 K/cumm [facility] Neutrophil pct 73.0 % [facility] Comment: Interpretive Data Percent cell count reference ranges are not reported, since discordance with absolute values may lead to misinterpretation of CBC data. Current Interpretive Data was last revised on 2018. Lymphocyte pct 16.0 % [facility] Comment: Interpretive Data Percent cell count reference ranges are not reported, since discordance with absolute values may lead to misinterpretation of CBC data. Current Interpretive Data was last revised on 2018. Monocyte pct 9.0 % [facility] Comment: Interpretive Data Percent cell count reference ranges are not reported, since discordance with absolute values may lead to misinterpretation of CBC data. Current Interpretive Data was last revised on 2018. Eosinophil pct 1.0 % [facility] Comment: Interpretive Data Percent cell count reference ranges are not reported, since discordance with absolute values may lead to misinterpretation of CBC data. Current Interpretive Data was last revised on 2018. Variant lymph pct 1.0(H) 0.0 - 0.0 % [facility] RBC morphology Present(A) [facility] Polychromasia 3-7/HPF(A) [facility] Poikilocytosis Moderate(A) [facility] Macrocytes 8-15/HPF(A) [facility] Elliptocytes 3-7/HPF(A) [facility] Platelet estimate Automated Count Confirmed [facility] Blood 03/05/2024 7:49 AM CDT 03/05/2024 8:30 AM CDT us Osmar Orta MD LAB BLOOD ORDERABLES Final R esult [facility] [address] [facility] Department [place] [address] * eGFR (03/05/2024 7:49 AM CDT) eGFR [...] MD LAB BLOOD ORDERABLES Final R esult [facility] [address] [facility] Department [place] [address] * (ABNORMAL) Comprehensive metabolic panel (03/05/2024 7:49 AM CDT) Sodium 136 135 - 145 mmol/L Potassium, pl 4.3 3.3 - 4.9 mmol/L [facility] Chloride 101 97 - 110 mmol/L [facility] CO2 27 22 - 32 mmol/L [facility] Anion gap 8 2 - 15 mmol/L [facility] BUN 25 6 - 25 mg/dL [facility] Creatinine 0.98 0.80 - 1.30 mg/dL [facility] Glucose 93 70 - 199 mg/dL [facility] Comment: Interpretive Data Fasting glucose [...] 2022. Calcium 8.9 8.5 - 10.3 mg/dL [facility] Bilirubin, total 0.3 0.1 - 1.2 mg/dL [facility] Protein, pl 6.9 6.5 - 8.5 g/dL [facility] Albumin 3.3(L) 3.5 - 5.0 g/dL [facility] Alk phos 148(H) 40 - 130 Units/L [facility] ALT 36 7 - 55 Units/L [facility] AST 64(H) 10 - 50 Units/L [facility] Blood 03/05/2024 7:49 AM CDT 03/05/2024 8:30 AM CDT us Osmar Orta MD LAB BLOOD ORDERABLES Final R esult [facility] [address] [facility] Department [place] [address] * (ABNORMAL) CBC with auto differential (03/05/2024 7:49 AM CDT) WBC 14.0(H) 3.8 - 9.9 K/cumm Hgb 11.8(L) 13.0 - 17.5 g/dL [facility] Hct 35.7(L) 38.9 - 50.3 % [facility] Plt 281 150 - 400 K/cumm [facility] MPV 9.9 9.1 - 12.3 fL [facility] RBC 3.31(L) 4.30 - 5.80 M/cumm [facility] MCV 107.9(H) 81.3 - 96.4 fL [facility] MCH 35.6(H) 27.1 - 33.3 pg [facility] MCHC 33.1 32.3 - 35.7 g/dL [facility] RDW CV 17.7(H) 11.1 - 14.9 % [facility] RDW SD 69.6(H) 35.7 - 48.1 fL [facility] NRBC abs 0.26(H) 0.00 - 0.01 K/cumm [facility] Blood 03/05/2024 7:49 AM CDT 03/05/2024 8:30 AM CDT Osmar Orta MD LAB BLOOD ORDERABLES Final R esult Performing Organization Address [facility] Co de Phone Number LESLIE[address] [place] [address] * POCT glucose (03/05/2024 7:37 AM CDT) Glucose, POC 110 70 - 199 mg/dL Blood 03/05/2024 7:37 AM CDT 03/05/2024 7:37 AM CDT Gianna Dey MD LAB POCT ORDERABLES - DEVICE Final Result Performing Organization Address [facility] de Phone Number LESLIE[address] [place] [address] * POCT glucose (03/05/2024 12:36 AM CDT) Glucose, POC 147 70 - 199 mg/dL Glucose comment 1 Use This Result [facility] Glucose comment 2 RN/MD Notified [facility] Blood 03/05/2024 12:3 6 AM CDT 03/05/2024 12:36 AM CDT Gianna Dey MD LAB POCT ORDERABLES - DEVICE Final Result Performing Organization Address [facility] de Phone Number [address] [place] [address] * (ABNORMAL) POCT glucose (03/04/2024 8:50 PM CDT) Glucose, POC 231(H) 70 - 199 mg/dL Blood 03/04/2024 8:50 PM CDT 03/04/2024 8:50 PM CDT Gianna Dey MD LAB POCT ORDERABLES - DEVICE Final Result Performing Organization Address [facility] Co de Phone Number LESLIE[address] [address] * POCT glucose (03/04/2024 4:49 PM CDT) Glucose, POC 173 70 - 199 mg/dL Glucose comment 1 Use This Result [facility] Blood 03/04/2024 4:49 PM CDT 03/04/2024 4:49 PM CDT us Gianna Dey MD LAB POCT ORDERABLES - DEVICE Final Result Performing Organization Address [facility] de Phone Number [address] [address] * HIV 1/2 Antibody plus p24 Antigen Blood (03/04/2024 12:58 PM CDT) [facility] HIV 1/2 ab + p24 ag Nonreactive [...] O RDERABLES Final Result Performing Organization Address [facility] Co de Phone Number [address] [address] * (ABNORMAL) POCT glucose (03/04/2024 11:56 AM CDT) Glucose, POC 232(H) 70 - 199 mg/dL Glucose comment 1 Use This Result [facility] Blood 03/04/2024 11:5 6 AM CDT 03/04/2024 11:56 AM CDT Gianna Dey MD LAB POCT ORDERABLES - DEVICE Final Result Performing Organization Address City/[facility]/ZIP Co de Phone Number ZULEMA [address] [place] [address] * POCT glucose (03/04/2024 7:42 AM CDT) Pathologist [facility] Glucose, POC 117 70 - 199 mg/dL Glucose comment 1 Use This Result [facility] [place] 2[facility] Blood 03/04/2024 7:42 AM CDT 03/04/2024 7:42 AM CDT Gianna Dey MD LAB POCT ORDERABLES - DEVICE Final Result Performing Organization Address [facility] de Phone Number ZULEMA [facility] [place] [address] * eGFR (03/04/2024 5:11 AM CDT) Pathologist [facility] eGFR >90 >=60 mL/min/1. 73 m2 Comment: [...] MD LAB BLOOD ORDERABLES Final R esult [facility] [address] [facility] Department [place] [address] * (ABNORMAL) Manual Differential (03/04/2024 5:11 AM CDT) Differential Manual Cells Counted 100 [facility] Neutrophil abs 10.0(H) 1.5 - 6.5 K/cumm [facility] Imm gran abs 0.2(H) 0.0 - 0.1 K/cumm [facility] Lymphocyte abs 6.3(H) 0.8 - 3.3 K/cumm [facility] Monocyte abs 0.3 0.2 - 0.8 K/cumm [facility] Basophil abs 0.2(H) 0.0 - 0.1 K/cumm [facility] Neutrophil pct 59.0 % [facility] Comment: Interpretive Data Percent cell count reference ranges are not reported, since discordance with absolute values may lead to misinterpretation of CBC data. Current Interpretive Data was last revised on 2018. Lymphocyte pct 37.0 % [facility] Comment: Interpretive Data Percent cell count reference ranges are not reported, since discordance with absolute values may lead to misinterpretation of CBC data. Current Interpretive Data was last revised on 2018. Monocyte pct 2.0 % [facility] Comment: Interpretive Data Percent cell count reference ranges are not reported, since discordance with absolute values may lead to misinterpretation of CBC data. Current Interpretive Data was last revised on 2018. Basophil pct 1.0 % [facility] Comment: Interpretive Data Percent cell count reference ranges are not reported, since discordance with absolute values may lead to misinterpretation of CBC data. Current Interpretive Data was last revised on 2018. Metamyelocyte pct 1.0 % [facility] Anisocytosis Marked(A) [facility] Poikilocytosis Moderate(A) [facility] Macrocytes > 15/HPF(A) [facility] Elliptocytes 3-7/HPF(A) [facility] Target cells 3-7/HPF(A) [facility] Platelet estimate Automated Count Confirmed [facility] Blood 03/04/2024 5:11 AM CDT 03/04/2024 5:26 AM CDT us Osmar Orta MD LAB BLOOD ORDERABLES Final R esult [facility]ANN[facility] Department [place] [address] * (ABNORMAL) CBC with auto differential (03/04/2024 5:11 AM CDT) WBC 17.0(H) 3.8 - 9.9 K/cumm Hgb 12.0(L) 13.0 - 17.5 g/dL [facility] Hct 35.6(L) 38.9 - 50.3 % [facility] Plt 321 150 - 400 K/cumm [facility] MPV 9.6 9.1 - 12.3 fL [facility] RBC 3.35(L) 4.30 - 5.80 M/cumm [facility] MCV 106.3(H) 81.3 - 96.4 fL [facility] MCH 35.8(H) 27.1 - 33.3 pg [facility] MCHC 33.7 32.3 - 35.7 g/dL [facility] RDW CV 17.7(H) 11.1 - 14.9 % [facility] RDW SD 68.4(H) 35.7 - 48.1 fL [facility] NRBC abs 0.51(H) 0.00 - 0.01 K/cumm [facility] Blood 03/04/2024 5:11 AM CDT 03/04/2024 5:26 AM CDT us Osmar Orta MD LAB BLOOD ORDERABLES Edited Result - Final [facility] [address] [facility] Department [place] [address] * (ABNORMAL) Comprehensive metabolic panel (03/04/2024 5:11 AM CDT) Sodium 136 135 - 145 mmol/L Potassium, pl 5.4(H) 3.3 - 4.9 mmol/L [facility] Comment:Hemolyzed; Potassium value may be falsely elevated by as much as 1.0 mmol/L. Suggest redraw and reanalysis. Chloride 98 97 - 110 mmol/L [facility] CO2 29 22 - 32 mmol/L [facility] Anion gap 9 2 - 15 mmol/L [facility] BUN 23 6 - 25 mg/dL [facility] Creatinine 0.96 0.80 - 1.30 mg/dL [facility] Glucose 145 70 - 199 mg/dL [facility] Comment: Interpretive Data Fasting glucose [...] 2022. Calcium 9.2 8.5 - 10.3 mg/dL [facility] Bilirubin, total 0.2 0.1 - 1.2 mg/dL [facility] Protein, pl 7.4 6.5 - 8.5 g/dL [facility] Albumin 3.6 3.5 - 5.0 g/dL [facility] Alk phos 132(H) 40 - 130 Units/L [facility] ALT 26 7 - 55 Units/L [facility] AST 58(H) 10 - 50 Units/L [facility] Comment:Hemolyzed; result ma y be falsely elevated Blood 03/04/2024 5:11 AM CDT 03/04/2024 5:26 AM CDT us Osmar Orta MD LAB BLOOD ORDERABLES Final R esult Performing Organization Address City/[facility] Co de Phone Number ZULEMA [address] [facility] [place] [address] * eGFR (03/04/2024 12:05 AM CDT) eGFR [...] 5 AM CDT 03/04/2024 12:33 AM CDT us Diana Rivera DO LAB BLOOD ORDERABLES Final Resul t Performing Organization Address [facility] Co de Phone Number ZULEMA [address] [facility] [place] [address] * (ABNORMAL) Basic metabolic panel (03/04/2024 12:05 AM CDT) Pathologist [facility] Sodium 136 135 - 145 mmol/L Potassium, pl 5.1(H) 3.3 - 4.9 mmol/L [facility] Comment:Hemolyzed; Potassium value may be falsely elevated by as much as 1.0 mmol/L. Suggest redraw and reanalysis. Chloride 98 97 - 110 mmol/L [facility] CO2 27 22 - 32 mmol/L [facility] Anion gap 11 2 - 15 mmol/L [facility] BUN 25 6 - 25 mg/dL [facility] Creatinine 1.12 0.80 - 1.30 mg/dL [facility] Glucose 158 70 - 199 mg/dL [facility] Comment: Delta - Results Reviewed [...] 2022. Calcium 9.2 8.5 - 10.3 mg/dL [facility] Blood 03/04/2024 12:0 5 AM CDT 03/04/2024 12:33 AM CDT us Diana Rivera DO LAB BLOOD ORDERABLES Final Resul t [facility] [address] [facility] Department [place] [address] * POCT glucose (03/03/2024 11:07 PM CDT) Glucose, POC 154 70 - 199 mg/dL Glucose comment 1 Use This Result [facility] Glucose comment 2 RN/MD Notified [facility] Blood 03/03/2024 11:0 7 PM CDT 03/03/2024 11:07 PM CDT Gianna Dey MD LAB POCT ORDERABLES - DEVICE Final Result Performing Organization Address City/[facility] Co de Phone Number ZULEMA [address] [address] * (ABNORMAL) POCT glucose (03/03/2024 7:06 PM CDT) Glucose, POC 225(H) 70 - 199 mg/dL Blood 03/03/2024 7:06 PM CDT 03/03/2024 7:06 PM CDT Gianna Dey MD LAB POCT ORDERABLES - DEVICE Final Result Performing Organization Address [facility] de Phone Number ZULEMA [address] [address] * Urinalysis reflex to microscopic (03/03/2024 6:14 PM CDT) Color, ur Straw Yellow Clarity, ur Clear Clear [facility] Specific gravity, ur 1.008 1.003 - 1.030 [facility] pH, urine 7.0 [facility] Comment: Interpretive Data ? Urine pH is affected by diet, medications, systemic acid-base disturbances, and renal tubular function. ??pH may affect urinary stone formation. ??For example, urine pH below 6.0 may help reduce the tendency for calcium phosphate stones and pH greater than 6.0 may reduce the tendency for uric acid stone formation. Source: [facility] Current Interpretive Data was last revised on 2017 Protein, ur ql Negative Negative [facility] Glucose, ur ql Negative Negative [facility] Ketones, ur Negative Negative [facility] Bilirubin, ur Negative Negative [facility] Blood, ur Negative Negative [facility] Urobilinogen, ur <2.0 <2.0 mg/dL [facility] Nitrite, ur Negative Negative [facility] Leukocyte esterase, ur Negative Negative [facility] UA reflex comment Reflex conditions for microscopic UA not met. ZULEMA Urine 03/03/2024 6:14 PM CDT 03/03/2024 6:38 PM CDT us Osmar Orta MD LAB URINE ORDERABLES Final R esult ZULEMA [facility] [place] [address] * POCT glucose (03/03/2024 5:05 PM CDT) Glucose, POC 183 70 - 199 mg/dL Glucose comment 1 Use This Result [facility] [place] Blood 03/03/2024 5:05 PM CDT 03/03/2024 5:05 PM CDT us Gianna Dey MD LAB POCT ORDERABLES - DEVICE Final Result Performing Organization Address [facility] Co de Phone Number [place] [address] [place] [address] * Blood culture Blood (03/03/2024 4:57 PM CDT) Pathologist [facility] Report Final Report: No growth Comment:Testing performed by : [facility], [address] [facility], [place]., [address] Blood 03/03/2024 4:57 PM CDT 03/03/2024 7:51 PM CDT Narrative [facility] - 03/08/2024 7:00 AM CDT From a [...] organism identification may be performed using the [employer] Gram-Positive Blood Culture Assay. This assay detects microbial DNA in positive blood culture broth via hybridization of target DNA to capture oligonucleotides on a microarray. This assay has been cleared by the [place] Food and Drug Administration and its performance characteristics have been verified by the [facility] Microbiology Laboratory. 5. ?For questions about this culture, contact the Microbiology Laboratory at [phone]. Interpretive data was last revised on 2020. Osmar Orta MD LAB MICROBIOLOGY - GENERAL O RDERABLES Final Result ZULEMA [address] [facility] Department [place] [address] * Blood culture Blood Arm, left (03/03/2024 4:11 PM CDT) Report Final Report: No growth Comment:Testing performed by : [facility], [address] [facility] [place] [address] Blood (Arm, left) 03/03/2024 4:11 PM CDT 03/03/2024 6:23 PM CDT Carlos A POOLE - 03/08/2024 7:00 AM CDT Collection->Peripheral 1. [...] organism identification may be performed using the Verigene Gram-Positive Blood Culture Assay. This assay detects microbial DNA in positive blood culture broth via hybridization of target DNA to capture oligonucleotides on a microarray. This assay has been cleared by the [place] Food and Drug Administration and its performance characteristics have been verified by the [facility] Microbiology Laboratory. 5. ?For questions about this culture, contact the Microbiology Laboratory at [phone]. Interpretive data was last revised on 2020. Osmar Orta MD LAB MICROBIOLOGY - GENERAL O RDERABLES Final Result Performing Organization Address [facility] Co de Phone Number ZULEMA [address] [place] [address] * MRSA Only (Staphylococcus aureus) PCR Nasal (03/03/2024 11:56 AM CDT) [facility] PCR Scrn, Methicillin resistant Staphylococcus aureus (MRSA) Not Detected Not Detected Comment: Interpretive Data Testing performed using Nucleic Acid Amplification with the MetaLINCS Xpert MRSA NxG Assay. This assay detects target DNA from mecA, mecC and the SCCmec insertion site of Staphylococcus aureus using Real-Time PCR and has been cleared by the FDA. Performance characteristics have been verified by the [facility]. Current Interpretive Data was last revised on 2023 Nasal 03/03/2024 11:5 6 AM CDT 03/03/2024 12:24 PM CDT Osmar Orta MD LAB MICROBIOLOGY - GENERAL O RDERABLES Final Result Performing Organization Address [facility] Co de Phone Number ZULEMA [address] [address] * POCT glucose (03/03/2024 11:55 AM CDT) Glucose, POC 169 70 - 199 mg/dL Glucose comment 1 Use This Result ZULEMA Blood 03/03/2024 11:5 5 AM CDT 03/03/2024 11:55 AM CDT Gianna Dey MD LAB POCT ORDERABLES - DEVICE Final Result Performing Organization Address [facility] de Phone Number LESLIE[address] [place] [address] * POCT glucose (03/03/2024 7:38 AM CDT) Glucose, POC 172 70 - 199 mg/dL Glucose comment 1 Use This Result [facility] [place] Blood 03/03/2024 7:38 AM CDT 03/03/2024 7:38 AM CDT Gianna Dey MD LAB POCT ORDERABLES - DEVICE Final Result Performing Organization Address [facility] de Phone Number [address] [place] [address] * POCT glucose (03/03/2024 5:53 AM CDT) Glucose, POC 96 70 - 199 mg/dL Glucose comment 1 Use This Result [facility] [place] Blood 03/03/2024 5:53 AM CDT 03/03/2024 5:53 AM CDT Gianna Dey MD LAB POCT ORDERABLES - DEVICE Final Result Performing Organization Address [facility] de Phone Number [address] [place] [address] * POCT glucose (03/03/2024 4:30 AM CDT) Glucose, POC 112 70 - 199 mg/dL Glucose comment 1 Use This Result [facility] [place] Blood 03/03/2024 4:30 AM CDT 03/03/2024 4:30 AM CDT us Gianna Dey MD LAB POCT ORDERABLES - DEVICE Final Result Performing Organization Address [facility] de Phone Number ZULEMA [address] [place] [address] * eGFR (03/03/2024 4:23 AM CDT) eGFR >90 >=60 mL/min/1. 73 [...] AM CDT 03/03/2024 5:21 AM CDT us Omsar Orta MD LAB BLOOD ORDERABLES Final R esult Performing Organization Address [facility] Co de Phone Number ZULEMA [address] [place] [address] * (ABNORMAL) Manual Differential (03/03/2024 4:23 AM CDT) Pathologist [facility] Differential Manual Cells Counted 100 [facility] Neutrophil abs 11.0(H) 1.5 - 6.5 K/cumm [facility] Lymphocyte abs 8.1(H) 0.8 - 3.3 K/cumm [facility] Monocyte abs 1.7(H) 0.2 - 0.8 K/cumm [facility] Neutrophil pct 53.0 % [facility] Comment: Interpretive Data Percent cell count reference ranges are not reported, since discordance with absolute values may lead to misinterpretation of CBC data. Current Interpretive Data was last revised on 2018. Lymphocyte pct 39.0 % [facility] Comment: Interpretive Data Percent cell count reference ranges are not reported, since discordance with absolute values may lead to misinterpretation of CBC data. Current Interpretive Data was last revised on 2018. Monocyte pct 8.0 % [facility] Comment: Interpretive Data Percent cell count reference ranges are not reported, since discordance with absolute values may lead to misinterpretation of CBC data. Current Interpretive Data was last revised on 2018. RBC morphology Consistent with RBC Indicies [facility] Platelet estimate Automated Count Confirmed [facility] Blood 03/03/2024 4:23 AM CDT 03/03/2024 5:21 AM CDT us Osmar Orta MD LAB BLOOD ORDERABLES Final R esult [facility] [address] [facility] Department [place] [address] * (ABNORMAL) Comprehensive metabolic panel (03/03/2024 4:23 AM CDT) [facility] Sodium 138 135 - 145 mmol/L Potassium, pl 4.5 3.3 - 4.9 mmol/L [facility] Comment:Hemolyzed; Potassium value may be falsely elevated by as much as 1.0 mmol/L. Suggest redraw and reanalysis. Chloride 102 97 - 110 mmol/L [facility] CO2 25 22 - 32 mmol/L [facility] Anion gap 11 2 - 15 mmol/L [facility] BUN 26(H) 6 - 25 mg/dL [facility] Creatinine 0.82 0.80 - 1.30 mg/dL [facility] Glucose 53(C) 70 - 199 mg/dL [facility] Comment: Delta - Results Reviewed ??Critical Result called to and read back by [email or web address], DATE: 2024-03-03 06:18:02 BY: [email or web address] Interpretive Data Fasting glucose >/= 126 mg/dl [...] 2022. Calcium 9.0 8.5 - 10.3 mg/dL [facility] Bilirubin, total 0.2 0.1 - 1.2 mg/dL [facility] Protein, pl 6.7 6.5 - 8.5 g/dL [facility] Albumin 3.6 3.5 - 5.0 g/dL [facility] Alk phos 122 40 - 130 Units/L [facility] ALT 18 7 - 55 Units/L [facility] AST 56(H) 10 - 50 Units/L [facility] Comment:Hemolyzed; result ma y be falsely elevated Blood 03/03/2024 4:23 AM CDT 03/03/2024 5:21 AM CDT us Osmar Orta MD LAB BLOOD ORDERABLES Final R esult [facility] [address] [facility] Department [place] [address] * (ABNORMAL) CBC with auto differential (03/03/2024 4:23 AM CDT) WBC 20.8(H) 3.8 - 9.9 K/cumm Hgb 11.6(L) 13.0 - 17.5 g/dL [facility] Hct 36.1(L) 38.9 - 50.3 % [facility] Plt 324 150 - 400 K/cumm [facility] MPV 9.9 9.1 - 12.3 fL [facility] RBC 3.31(L) 4.30 - 5.80 M/cumm [facility] MCV 109.1(H) 81.3 - 96.4 fL [facility] MCH 35.0(H) 27.1 - 33.3 pg [facility] MCHC 32.1(L) 32.3 - 35.7 g/dL [facility] RDW CV 17.6(H) 11.1 - 14.9 % [facility] RDW SD 70.2(H) 35.7 - 48.1 fL [facility] NRBC abs 0.63(H) 0.00 - 0.01 K/cumm [facility] Blood 03/03/2024 4:23 AM CDT 03/03/2024 5:21 AM CDT us Osmar Orta MD LAB BLOOD ORDERABLES Final R esult Performing Organization Address City/[facility]/ZIP Co de Phone Number ZULEMA [address] [place] [address] * POCT glucose (03/03/2024 12:54 AM CDT) Glucose, POC 157 70 - 199 mg/dL Glucose comment 1 Use This Result [facility] Blood 03/03/2024 12:5 4 AM CDT 03/03/2024 12:54 AM CDT Gianna Dey MD LAB POCT ORDERABLES - DEVICE Final Result Performing Organization Address City/[facility]/ZIP Co de Phone Number LESLIE[address] [place] [address] * POCT glucose (03/02/2024 7:14 PM CDT) Glucose, POC 170 70 - 199 mg/dL Glucose comment 1 Use This Result ZULEMA CHAVEZ Blood 03/02/2024 7:14 PM CDT 03/02/2024 7:14 PM CDT Gianna Dey MD LAB POCT ORDERABLES - DEVICE Final Result ZULEMA CHAVEZ [address] [facility] Department [place] [address] * CT Chest WO Contrast (03/02/2024 6:51 [...] findings. FINDINGS: LUNGS: ??Coarse opacity in the gomzp-npfkyri-hkck-upper lungs are new since 04/03/2022, superimposed on [...] ??Unremarkable. ?? IMPRESSION: Coarse opacities in the ucisd-ihtwooq-qimt-upper lungs are new since 04/03/2022, favored to [...] 7:43 PM - Electronically signed by ??Kaushik Nur M.D. AR D: ??03/02/2024 7:43 PM T: Report ID: [id number] Reading Location: ??[id number] Procedure Note Kaushik Nur MD - 03/02/2024 [...] findings. FINDINGS: LUNGS: Coarse opacity in the mabnu-gljgwlb-zqpz-upper lungs are new since 04/03/2022, superimposed on [...] WALL: Unremarkable. IMPRESSION: Coarse opacities in the qckhz-nuskjqr-dagz-upper lungs are new since 04/03/2022, favored to [...] 7:43 PM - Electronically signed by Kaushik FERREIRA T: Report ID: [id number] Reading Location: [id number] us Osmar Orta MD IMG CT PROCEDURES Final Resu lt * (ABNORMAL) POCT glucose (03/02/2024 4:56 PM CDT) Glucose, POC 308(H) 70 - 199 mg/dL Glucose comment 1 Use This Result ZULEMA CHAVEZ Glucose comment 2 RN/MD Notified ZULEMA CHAVEZ Blood 03/02/2024 4:56 PM CDT 03/02/2024 4:56 PM CDT Gianna Dey MD LAB POCT ORDERABLES - DEVICE Final Result Performing Organization Address [facility] de Phone Number ZULEMA [address] [address] * (ABNORMAL) POCT glucose (03/02/2024 12:48 PM CDT) Glucose, POC 335(H) 70 - 199 mg/dL Glucose comment 1 Use This Result [facility] Glucose comment 2 RN/MD Notified [facility] Blood 03/02/2024 12:4 8 PM CDT 03/02/2024 12:48 PM CDT Gianna Dey MD LAB POCT ORDERABLES - DEVICE Final Result Performing Organization Address [facility] de Phone Number [address] [address] * POCT glucose (03/02/2024 8:07 AM CDT) Glucose, POC 121 70 - 199 mg/dL Glucose comment 1 Use This Result [facility] Glucose comment 2 RN/MD Notified [facility] Blood 03/02/2024 8:07 AM CDT 03/02/2024 8:07 AM CDT Gianna Dey MD LAB POCT ORDERABLES - DEVICE Final Result Performing Organization Address City/[facility] Co de Phone Number [address] [address] * (ABNORMAL) Manual Differential (03/02/2024 5:24 AM CDT) Differential Manual Cells Counted 100 [facility] Neutrophil abs 8.3(H) 1.5 - 6.5 K/cumm [facility] Lymphocyte abs 7.6(H) 0.8 - 3.3 K/cumm [facility] Monocyte abs 0.3 0.2 - 0.8 K/cumm [facility] Neutrophil pct 51.0 % [facility] Comment: Interpretive Data Percent cell count reference ranges are not reported, since discordance with absolute values may lead to misinterpretation of CBC data. Current Interpretive Data was last revised on 2018. Lymphocyte pct 47.0 % [facility] Comment: Interpretive Data Percent cell count reference ranges are not reported, since discordance with absolute values may lead to misinterpretation of CBC data. Current Interpretive Data was last revised on 2018. Monocyte pct 2.0 % [facility] Comment: Interpretive Data Percent cell count reference ranges are not reported, since discordance with absolute values may lead to misinterpretation of CBC data. Current Interpretive Data was last revised on 2018. RBC morphology Present(A) [facility] Polychromasia 3-7/HPF(A) [facility] Hypochromasia 3-7/HPF(A) [facility] Anisocytosis Slight(A) [facility] Macrocytes 3-7/HPF(A) [facility] Teardrop cells 3-7/HPF(A) [facility] [place] bodies Present(A) [facility] Platelet estimate Adequate [facility] Blood 03/02/2024 5:24 AM CDT 03/02/2024 5:48 AM CDT us Saim Rivera DO LAB BLOOD ORDERABLES Final Resul t [place] [id number] [facility] Department of Laboratories [place], [place] [id number] * (ABNORMAL) CBC without differential (03/02/2024 5:24 AM CDT) WBC 16.2(H) 3.8 - 9.9 K/cumm Hgb 11.4(L) 13.0 - 17.5 g/dL [facility] Hct 35.2(L) 38.9 - 50.3 % [facility] Plt 346 150 - 400 K/cumm [facility] MPV 9.8 9.1 - 12.3 fL [facility] RBC 3.24(L) 4.30 - 5.80 M/cumm [facility] MCV 108.6(H) 81.3 - 96.4 fL ZULEMA MCH 35.2(H) 27.1 - 33.3 pg ZULEMA MCHC 32.4 32.3 - 35.7 g/dL ZULEMA RDW CV 17.2(H) 11.1 - 14.9 % ZULEMA RDW SD 68.5(H) 35.7 - 48.1 fL ZULEMA NRBC abs 0.37(H) 0.00 - 0.01 K/cumm ZULEMA Blood 03/02/2024 5:24 AM CDT 03/02/2024 5:48 AM CDT us Diana Rivera DO LAB BLOOD ORDERABLES Edited Resu lt - Final ZULEMA CHAVEZ [address] [facility] Department of Laboratories [place], [place] [id number] * eGFR (03/01/2024 11:38 PM CDT) eGFR >90 >=60 mL/min/1. 73 [...] 8 PM CDT 03/01/2024 11:49 PM CDT [facility] Rivera DO LAB BLOOD ORDERABLES Final Resul t Performing Organization Address [facility] Co de Phone Number [address] Department [place] [address] * Basic metabolic panel (03/01/2024 11:38 PM CDT) Pathologist [facility] Sodium 137 135 - 145 mmol/L Potassium, pl 4.2 3.3 - 4.9 mmol/L [facility] Chloride 101 97 - 110 mmol/L [facility] CO2 29 22 - 32 mmol/L [facility] Anion gap 7 2 - 15 mmol/L [facility] BUN 24 6 - 25 mg/dL [facility] Creatinine 0.82 0.80 - 1.30 mg/dL [facility] Glucose 159 70 - 199 mg/dL [facility] Comment: Interpretive Data Fasting glucose [...] 2022. Calcium 8.6 8.5 - 10.3 mg/dL [facility] Blood 03/01/2024 11:3 8 PM CDT 03/01/2024 11:49 PM CDT Sa Rivera DO LAB BLOOD ORDERABLES Final Resul t Performing Organization Address [facility] Co de Phone Number [address] [address] * POCT glucose (03/01/2024 10:22 PM CDT) Glucose, POC 150 70 - 199 mg/dL Blood 03/01/2024 10:2 2 PM CDT 03/01/2024 10:22 PM CDT Gianna Dey MD LAB POCT ORDERABLES - DEVICE Final Result Performing Organization Address City/[facility] Co de Phone Number [address] [address] * (ABNORMAL) POCT glucose (03/01/2024 7:23 PM CDT) Glucose, POC 332(H) 70 - 199 mg/dL Glucose comment 1 Use This Result [facility] Blood 03/01/2024 7:23 PM CDT 03/01/2024 7:23 PM CDT Gianna Dey MD LAB POCT ORDERABLES - DEVICE Final Result Performing Organization Address [facility] Co de Phone Number [address] [address] * (ABNORMAL) POCT glucose (03/01/2024 4:53 PM CDT) Glucose, POC 344(H) 70 - 199 mg/dL Glucose comment 1 Use This Result [facility] Glucose comment 2 RN/MD Notified [facility] [place] Blood 03/01/2024 4:53 PM CDT 03/01/2024 4:53 PM CDT Gianna Dey MD LAB POCT ORDERABLES - DEVICE Final Result Performing Organization Address [facility]/ZIP Co de Phone Number [address] [address] * POCT glucose (03/01/2024 11:52 AM CDT) Glucose, POC 178 70 - 199 mg/dL Glucose comment 1 Use This Result [facility] Glucose comment 2 RN/MD Notified [facility] Blood 03/01/2024 11:5 2 AM CDT 03/01/2024 11:52 AM CDT Gianna Dey MD LAB POCT ORDERABLES - DEVICE Final Result Performing Organization Address [facility]/ZIP Co de Phone Number [address] [place] [address] * (ABNORMAL) POCT glucose (03/01/2024 8:02 AM CDT) Glucose, POC 226(H) 70 - 199 mg/dL Glucose comment 1 Use This Result [facility] Glucose comment 2 RN/ Notified [facility] Blood 03/01/2024 8:02 AM CDT 03/01/2024 8:02 AM CDT Gianna Dey MD LAB POCT ORDERABLES - DEVICE Final Result Performing Organization Address [facility] Co de Phone Number [address] [place] [address] * (ABNORMAL) POCT glucose (03/01/2024 3:46 AM CDT) Glucose, POC 202(H) 70 - 199 mg/dL Glucose comment 1 Use This Result [facility] Glucose comment 2 RN/ Notified [facility] Blood 03/01/2024 3:46 AM CDT 03/01/2024 3:46 AM CDT Diana Rivera DO LAB POCT ORDERABLES - DEVICE Fin al Result Performing Organization Address [facility]/ZIP Co de Phone Number [address] [place] [address] * POCT glucose (03/01/2024 12:02 AM CDT) Glucose, POC 173 70 - 199 mg/dL Blood 03/01/2024 12:0 2 AM CDT 03/01/2024 12:02 AM CDT Saim Rivera DO LAB POCT ORDERABLES - DEVICE Fin al Result Performing Organization Address [facility] Co de Phone Number LESLIE[address] [place] [address] * POCT glucose (02/29/2024 7:30 PM CDT) Glucose, POC 164 70 - 199 mg/dL Glucose comment 1 Use This Result [facility] [place] Blood 02/29/2024 7:30 PM CDT 02/29/2024 7:30 PM CDT [facility] DO LAB POCT ORDERABLES - DEVICE Fin al Result Performing Organization Address [facility] Co de Phone Number [address] [place] [address] * (ABNORMAL) POCT glucose (02/29/2024 6:12 PM CDT) Glucose, POC 254(H) 70 - 199 mg/dL Blood 02/29/2024 6:12 PM CDT 02/29/2024 6:12 PM CDT [facility] DO LAB POCT ORDERABLES - DEVICE Fin al Result Performing Organization Address [facility] Co de Phone Number [address] [address] * (ABNORMAL) POCT glucose (02/29/2024 4:33 PM CDT) Glucose, POC 373(H) 70 - 199 mg/dL Blood 02/29/2024 4:33 PM CDT 02/29/2024 4:33 PM CDT Saim Rivera DO LAB POCT ORDERABLES - DEVICE Fin al Result Performing Organization Address [facility] Co de Phone Number ZULEMA [address] [address] * POCT glucose (02/29/2024 11:20 AM CDT) [facility] Glucose, POC 144 70 - 199 mg/dL Blood 02/29/2024 11:2 0 AM CDT 02/29/2024 11:20 AM CDT [facility] Rivera DO LAB POCT ORDERABLES - DEVICE Fin al Result Performing Organization Address [facility] de Phone Number [address] [address] * (ABNORMAL) CBC without differential (02/29/2024 7:34 AM CDT) [facility] WBC 12.4(H) 3.8 - 9.9 K/cumm Hgb 11.2(L) 13.0 - 17.5 g/dL [facility] Hct 34.0(L) 38.9 - 50.3 % [facility] Plt 365 150 - 400 K/cumm [facility] MPV 9.9 9.1 - 12.3 fL [facility] RBC 3.17(L) 4.30 - 5.80 M/cumm [facility] MCV 107.3(H) 81.3 - 96.4 fL [facility] MCH 35.3(H) 27.1 - 33.3 pg [facility] MCHC 32.9 32.3 - 35.7 g/dL [facility] RDW CV 17.2(H) 11.1 - 14.9 % [facility] RDW SD 67.0(H) 35.7 - 48.1 fL [facility] NRBC abs 0.27(H) 0.00 - 0.01 K/cumm [facility] Blood 02/29/2024 7:34 AM CDT 02/29/2024 8:13 AM CDT [address]fa Taylor [address] OPERATIONS CLERK LAB BLOOD ORDERABLES Pilar l Result Performing Organization Address [facility] Co de Phone Number ZULEMA [address] [place] [address] * POCT glucose (02/29/2024 7:18 AM CDT) Glucose, POC 123 70 - 199 mg/dL Blood 02/29/2024 7:18 AM CDT 02/29/2024 7:18 AM CDT Saim Rivera DO LAB POCT ORDERABLES - DEVICE Fin al Result Performing Organization Address [facility] Co de Phone Number [address] [place] [address] * POCT glucose (02/29/2024 2:06 AM CDT) Glucose, POC 150 70 - 199 mg/dL Glucose comment 1 Use This Result [facility] Glucose comment 2 RN/MD Notified [facility] Blood 02/29/2024 2:06 AM CDT 02/29/2024 2:06 AM CDT Saim Rivera DO LAB POCT ORDERABLES - DEVICE Fin al Result Performing Organization Address [facility] Co de Phone Number [address] [place] [address] * POCT glucose (02/29/2024 1:00 AM CDT) Glucose, POC 100 70 - 199 mg/dL Blood 02/29/2024 1:00 AM CDT 02/29/2024 1:00 AM CDT Saim Rivera DO LAB POCT ORDERABLES - DEVICE Fin al Result Performing Organization Address [facility] Co de Phone Number ZULEMA [address] [address] * (ABNORMAL) POCT glucose (02/29/2024 12:43 AM CDT) Glucose, POC 59(L) 70 - 199 mg/dL Blood 02/29/2024 12:4 3 AM CDT 02/29/2024 12:43 AM CDT Saim Rivera DO LAB POCT ORDERABLES - DEVICE Fin al Result Performing Organization Address [facility] Co de Phone Number ZULEMA [address] [address] * (ABNORMAL) POCT glucose (02/29/2024 12:08 AM CDT) Glucose, POC 56(L) 70 - 199 mg/dL Glucose comment 1 Use This Result [facility] Glucose comment 2 RN/MD Notified [facility] [place] Blood 02/29/2024 12:0 8 AM CDT 02/29/2024 12:08 AM CDT [facility] Rivera DO LAB POCT ORDERABLES - DEVICE Fin al Result Performing Organization Address [facility] Co de Phone Number ZULEMA [address] [address] * (ABNORMAL) POCT glucose (02/28/2024 8:40 PM CDT) Glucose, POC 296(H) 70 - 199 mg/dL Glucose comment 1 Use This Result [facility] Glucose comment 2 RN/MD Notified [facility] Blood 02/28/2024 8:40 PM CDT 02/28/2024 8:40 PM CDT Saim Rivera DO LAB POCT ORDERABLES - DEVICE Fin al Result Performing Organization Address [facility] Co de Phone Number LESLIE[address] [address] * (ABNORMAL) POCT glucose (02/28/2024 4:55 PM CDT) Glucose, POC 248(H) 70 - 199 mg/dL Glucose comment 1 Use This Result ZULEMA Blood 02/28/2024 4:55 PM CDT 02/28/2024 4:55 PM CDT us Saim Rivera DO LAB POCT ORDERABLES - DEVICE Fin al Result Performing Organization Address [facility] de Phone Number LESLIE[address] [address] * POCT glucose (02/28/2024 12:39 PM CDT) Glucose, POC 163 70 - 199 mg/dL Glucose comment 1 Use This Result ZU[facility]MA Blood 02/28/2024 12:3 9 PM CDT 02/28/2024 12:39 PM CDT us Saim Rivera DO LAB POCT ORDERABLES - DEVICE Fin al Result Performing Organization Address [facility] Co de Phone Number [address] [place] [address] * POCT glucose (02/28/2024 12:02 PM CDT) Glucose, POC 173 70 - 199 mg/dL Blood 02/28/2024 12:0 2 PM CDT 02/28/2024 12:02 PM CDT us Saim Rivera DO LAB POCT ORDERABLES - DEVICE Fin al Result Performing Organization Address [facility] Co de Phone Number [address] [place] [address] * EGD (02/28/2024 11:38 AM CDT) Anatomical Region Laterality Modality Other Narrative Procedure Note Gee Mcdaniel MD - 02/28/2024 11:38 AM CDT [facility] GI ENDOSCOPY Patient Name: Bri Jones Procedure Date: 02/28/2024 11:38 AM Date of : 1965 Admit Type: Inpatient Age: 58 Gender: Male Attending MD: Gee Ravi M.D. Room: [facility] ENDOSCOPY ROOM [facility] Note Status: Finalized Procedure: Upper GI [...] On: 02/28/2024 11:38 AM Recognized by the [employer] for promoting quality in endoscopy Gee Mcdaniel MD ENDOSCOPY P ROCEDURES Final Result * POCT glucose (02/28/2024 8:02 AM CDT) Glucose, POC 118 70 - 199 mg/dL Glucose comment 1 Use This Result ZULEMA CHAVEZ Blood 02/28/2024 8:02 AM CDT 02/28/2024 8:02 AM CDT Diana Rivera DO LAB POCT ORDERABLES - DEVICE Fin al Result Performing Organization Address City/State/[facility] Co de Phone Number ZULEMA [address] [facility] Department [place] [address] * (ABNORMAL) Lipid panel (02/28/2024 [...] on 2018. Non-HDL Cholesterol 70 mg/dL ZULEMA Comment: Interpretive Data Ages < [...] on 2018. Chol/HDL ratio 2 ZULEMA Blood 02/28/2024 5:26 AM CDT 02/28/2024 6:30 AM CDT us Diana Rivera DO LAB BLOOD ORDERABLES Final Resul t ZULEMA [address] [facility] Department [place] [address] * eGFR (02/28/2024 5:26 AM CDT) eGFR >90 >=60 mL/min/1. 73 [...] LAB BLOOD ORDERABLES Final Resul t ZULEMA [address] [facility] [place] [address] * (ABNORMAL) Basic metabolic panel (02/28/2024 5:26 AM CDT) Sodium 136 135 - 145 mmol/L Potassium, pl 4.3 3.3 - 4.9 mmol/L [facility] Comment:Hemolyzed; Potassium value may be falsely elevated by as much as 1.0 mmol/L. Suggest redraw and reanalysis. Chloride 98 97 - 110 mmol/L [facility] CO2 28 22 - 32 mmol/L [facility] Anion gap 10 2 - 15 mmol/L [facility] BUN 28(H) 6 - 25 mg/dL [facility] Creatinine 0.78(L) 0.80 - 1.30 mg/dL [facility] Glucose 164 70 - 199 mg/dL [facility] Comment: Interpretive Data Fasting glucose [...] 2022. Calcium 8.7 8.5 - 10.3 mg/dL [facility] Blood 02/28/2024 5:26 AM CDT 02/28/2024 6:30 AM CDT us Diana Christensena DO LAB BLOOD ORDERABLES Final Resul t [facility] [address] [facility] Department [place] [address] * (ABNORMAL) CBC without differential (02/28/2024 5:26 AM CDT) WBC 13.6(H) 3.8 - 9.9 K/cumm Hgb 11.4(L) 13.0 - 17.5 g/dL [facility] Hct 33.9(L) 38.9 - 50.3 % [facility] Plt 378 150 - 400 K/cumm [facility] MPV 9.8 9.1 - 12.3 fL [facility] RBC 3.26(L) 4.30 - 5.80 M/cumm [facility] MCV 104.0(H) 81.3 - 96.4 fL [facility] MCH 35.0(H) 27.1 - 33.3 pg [facility] MCHC 33.6 32.3 - 35.7 g/dL [facility] RDW CV 16.5(H) 11.1 - 14.9 % [facility] RDW SD 62.6(H) 35.7 - 48.1 fL [facility] NRBC abs 0.42(H) 0.00 - 0.01 K/cumm [facility] Blood 02/28/2024 5:26 AM CDT 02/28/2024 6:30 AM CDT Josefa Taylor LAB BLOOD ORDERABLES Pilar l Result Performing Organization Address [facility] Co de Phone Number LESLIE[address] [address] * POCT glucose (02/28/2024 4:09 AM CDT) Glucose, POC 184 70 - 199 mg/dL Glucose comment 1 Use This Result [facility] Glucose comment 2 RN/MD Notified [facility] [place] Blood 02/28/2024 4:09 AM CDT 02/28/2024 4:09 AM CDT Saim Rivera DO LAB POCT ORDERABLES - DEVICE Fin al Result Performing Organization Address [facility] Co de Phone Number [address] [place] [address] * (ABNORMAL) POCT glucose (02/28/2024 4:08 AM CDT) Glucose, POC 202(H) 70 - 199 mg/dL Blood 02/28/2024 4:08 AM CDT 02/28/2024 4:08 AM CDT Saim Rivera DO LAB POCT ORDERABLES - DEVICE Fin al Result Performing Organization Address [facility] Co de Phone Number [address] [place] [address] * POCT glucose (02/28/2024 12:34 AM CDT) Glucose, POC 132 70 - 199 mg/dL Glucose comment 1 Use This Result [facility] Glucose comment 2 RN/MD Notified ZULEMA Blood 02/28/2024 12:3 4 AM CDT 02/28/2024 12:34 AM CDT us Saim Rivera DO LAB POCT ORDERABLES - DEVICE Fin al Result Performing Organization Address [facility] Co de Phone Number ZULEMA [address] [place] [address] * POCT glucose (02/27/2024 11:46 PM CDT) Glucose, POC 97 70 - 199 mg/dL Glucose comment 1 Use This Result [facility] Glucose comment 2 RN/MD Notified ZULEMA Blood 02/27/2024 11:4 6 PM CDT 02/27/2024 11:46 PM CDT Saim Rivera DO LAB POCT ORDERABLES - DEVICE Fin al Result Performing Organization Address [facility] Co de Phone Number ZULEMA [address] [place] [address] * POCT glucose (02/27/2024 11:17 PM CDT) Glucose, POC 128 70 - 199 mg/dL Glucose comment 1 Use This Result [facility] [place] Glucose comment 2 RN/ Notified ZULEMA Blood 02/27/2024 11:1 7 PM CDT 02/27/2024 11:17 PM CDT us Saim Rivera DO LAB POCT ORDERABLES - DEVICE Fin al Result Performing Organization Address City/[facility] Co de Phone Number LESLIE[address] [place] [address] * (ABNORMAL) POCT glucose (02/27/2024 8:56 PM CDT) Glucose, POC 340(H) 70 - 199 mg/dL Glucose comment 1 Use This Result [facility] Glucose comment 2 RN/ Notified ZULEMA Blood 02/27/2024 8:56 PM CDT 02/27/2024 8:56 PM CDT us Saim Rivera DO LAB POCT ORDERABLES - DEVICE Fin al Result ZULEMA [address] [facility] Department [place] [address] * XR Chest PA Lateral 2 Views (02/27/2024 6:05 PM CDT) Anatomical Region Laterality Modality Body, Chest N/A Computed Radiogr aphy 02/28/2024 5:50 AM CDT Narrative 02/28/2024 5:53 AM CDT EXAM DESCRIPTION: XR CHEST PA LATERAL 2 VIEWS REASON FOR STUDY: Immunosuppressed state pneumoniae ?? Evaluate immunosupressed pneumoniae. ?? TECHNIQUE: PA and lateral ??radiographic view(s) of the chest. COMPARISON: [id number]. FINDINGS: LUNGS: ??There is apical opacity on [...] D: ??02/28/2024 5:53 AM T: Report ID: [id number] Reading Location: ??[id number] Procedure Note Vianey Mares MD - 02/28/2024 EXAM DESCRIPTION: XR CHEST PA LATERAL 2 VIEWS REASON FOR STUDY: Immunosuppressed state pneumoniae Evaluate immunosupressed pneumoniae. TECHNIQUE: PA and lateral radiographic view(s) of the chest. COMPARISON: [id number]. FINDINGS: LUNGS: There is apical opacity on [...] Vianey Mares M.D. TW T: Report ID: [id number] Reading Location: [place] [address] Osmar Orta MD IMG XR PROCEDURES Final Resu lt * POCT glucose (02/27/2024 5:04 PM CDT) Glucose, POC 123 70 - 199 mg/dL Blood 02/27/2024 5:04 PM CDT 02/27/2024 5:04 PM CDT Saim Rivera DO LAB POCT ORDERABLES - DEVICE Fin al Result Performing Organization Address [facility] de Phone Number [address] [place] [address] * POCT glucose (02/27/2024 12:01 PM CDT) Glucose, POC 151 70 - 199 mg/dL Blood 02/27/2024 12:0 1 PM CDT 02/27/2024 12:01 PM CDT Saim Rivera DO LAB POCT ORDERABLES - DEVICE Fin al Result Performing Organization Address [facility] Co de Phone Number [address] [place] [address] * (ABNORMAL) POCT glucose (02/27/2024 8:00 AM CDT) Glucose, POC 59(L) 70 - 199 mg/dL Blood 02/27/2024 8:00 AM CDT 02/27/2024 8:00 AM CDT Diana Rowellafa DO LAB POCT ORDERABLES - DEVICE Fin al Result Performing Organization Address [facility] Co de Phone Number ZULEMA [address] [place] [address] * (ABNORMAL) CBC without differential (02/27/2024 6:10 AM CDT) [facility] WBC 14.4(H) 3.8 - 9.9 K/cumm Hgb 10.4(L) 13.0 - 17.5 g/dL [facility] Hct 31.7(L) 38.9 - 50.3 % [facility] Plt 358 150 - 400 K/cumm [facility] MPV 9.9 9.1 - 12.3 fL [facility] RBC 3.05(L) 4.30 - 5.80 M/cumm [facility] MCV 103.9(H) 81.3 - 96.4 fL [facility] MCH 34.1(H) 27.1 - 33.3 pg [facility] MCHC 32.8 32.3 - 35.7 g/dL [facility] RDW CV 16.3(H) 11.1 - 14.9 % [facility] RDW SD 62.5(H) 35.7 - 48.1 fL [facility] NRBC abs 0.44(H) 0.00 - 0.01 K/cumm [facility] Blood 02/27/2024 6:10 AM CDT 02/27/2024 6:20 AM CDT Josefa Taylor NP LAB BLOOD ORDERABLES Pilar l Result Performing Organization Address City/[facility]/ZIP Co de Phone Number LESLIE[address] [address] * POCT glucose (02/27/2024 3:51 AM CDT) Glucose, POC 148 70 - 199 mg/dL Glucose comment 1 Use This Result [facility] Glucose comment 2 RN/MD Notified ZULEMA Blood 02/27/2024 3:51 AM CDT 02/27/2024 3:51 AM CDT us Saim Rivera DO LAB POCT ORDERABLES - DEVICE Fin al Result Performing Organization Address City/[facility] Co de Phone Number LESLIE[address] [place] [address] * POCT glucose (02/27/2024 2:15 AM CDT) Glucose, POC 87 70 - 199 mg/dL Glucose comment 1 Use This Result [facility] Glucose comment 2 RN/MD [facility] [place] Blood 02/27/2024 2:15 AM CDT 02/27/2024 2:15 AM CDT Saim Rivera DO LAB POCT ORDERABLES - DEVICE Fin al Result Performing Organization Address [facility] Co de Phone Number [address] [place] [address] * POCT glucose (02/26/2024 11:49 PM CDT) Glucose, POC 178 70 - 199 mg/dL Glucose comment 1 Use This Result [facility] Glucose comment 2 RN/MD Notified ZULEMA Blood 02/26/2024 11:4 9 PM CDT 02/26/2024 11:49 PM CDT Saim Rivera DO LAB POCT ORDERABLES - DEVICE Fin al Result Performing Organization Address City/[facility] Co de Phone Number [address] [place] [address] * POCT glucose (02/26/2024 8:36 PM CDT) Glucose, POC 190 70 - 199 mg/dL Glucose comment 1 Use This Result [facility] Glucose comment 2 RN/MD Notified [facility] Blood 02/26/2024 8:36 PM CDT 02/26/2024 8:36 PM CDT us Saim Rivera DO LAB POCT ORDERABLES - DEVICE Fin al Result Performing Organization Address City/[facility] Co de Phone Number ZULEMA [address] [place] [address] * (ABNORMAL) POCT glucose (02/26/2024 4:39 PM CDT) Glucose, POC 384(H) 70 - 199 mg/dL Glucose comment 1 Use This Result [facility] Blood 02/26/2024 4:39 PM CDT 02/26/2024 4:39 PM CDT Saim Rivera DO LAB POCT ORDERABLES - DEVICE Fin al Result Performing Organization Address [facility] de Phone Number ZULEMA [address] [place] [address] * POCT glucose (02/26/2024 11:39 AM CDT) Glucose, POC 97 70 - 199 mg/dL Glucose comment 1 Use This Result [facility] Blood 02/26/2024 11:3 9 AM CDT 02/26/2024 11:39 AM CDT Saim Rivera DO LAB POCT ORDERABLES - DEVICE Fin al Result Performing Organization Address [facility] Co de Phone Number LESLIE[address] [place] [address] * POCT glucose (02/26/2024 10:53 AM CDT) Glucose, POC 111 70 - 199 mg/dL Glucose comment 1 Use This Result [facility] Blood 02/26/2024 10:5 3 AM CDT 02/26/2024 10:53 AM CDT Saim Rivera DO LAB POCT ORDERABLES - DEVICE Fin al Result Performing Organization Address [facility] Co de Phone Number ZULEMA [address] [place] [address] * (ABNORMAL) POCT glucose (02/26/2024 10:30 AM CDT) Glucose, POC 61(L) 70 - 199 mg/dL Glucose comment 1 Use This Result [facility] Glucose comment 2 RN/MD Notified Z[facility]LE[facility] Blood 02/26/2024 10:3 0 AM CDT 02/26/2024 10:30 AM CDT Saim Rivera DO LAB POCT ORDERABLES - DEVICE Fin al Result Performing Organization Address [facility] de Phone Number ZULEMA [address] [address] * POCT glucose (02/26/2024 7:34 AM CDT) Glucose, POC 163 70 - 199 mg/dL Glucose comment 1 Use This Result [facility] Blood 02/26/2024 7:34 AM CDT 02/26/2024 7:34 AM CDT Saim Rivera DO LAB POCT ORDERABLES - DEVICE Fin al Result Performing Organization Address [facility] de Phone Number ZULEMA [address] [address] * eGFR (02/26/2024 5:42 AM CDT) eGFR [...] NP LAB BLOOD ORDERABLES Pilar armas Result [facility] [address] [facility] Department of Laboratories [place], [place] [id number] * (ABNORMAL) CBC without differential (02/26/2024 5:42 AM CDT) Pathologist [facility] WBC 13.4(H) 3.8 - 9.9 K/cumm Hgb 11.6(L) 13.0 - 17.5 g/dL [facility] Hct 34.7(L) 38.9 - 50.3 % [facility] Plt 418(H) 150 - 400 K/cumm [facility] MPV 10.1 9.1 - 12.3 fL [facility] RBC 3.31(L) 4.30 - 5.80 M/cumm [facility] MCV 104.8(H) 81.3 - 96.4 fL [facility] MCH 35.0(H) 27.1 - 33.3 pg [facility] MCHC 33.4 32.3 - 35.7 g/dL [facility] RDW CV 16.2(H) 11.1 - 14.9 % [facility] RDW SD 62.5(H) 35.7 - 48.1 fL [facility] NRBC abs 0.25(H) 0.00 - 0.01 K/cumm [facility] Blood 02/26/2024 5:42 AM CDT 02/26/2024 6:49 AM CDT Josefa Taylor NP LAB BLOOD ORDERABLES Pilar armas Result [facility] [address] [facility] Department [place] [address] * Basic metabolic panel (02/26/2024 5:42 AM CDT) Pathologist [facility] Sodium 139 135 - 145 mmol/L Potassium, pl 3.6 3.3 - 4.9 mmol/L [facility] Chloride 99 97 - 110 mmol/L [facility] CO2 31 22 - 32 mmol/L [facility] Anion gap 9 2 - 15 mmol/L [facility] BUN 24 6 - 25 mg/dL [facility] Creatinine 0.81 0.80 - 1.30 mg/dL [facility] Glucose 140 70 - 199 mg/dL [facility] Comment: Interpretive Data Fasting glucose [...] 2022. Calcium 9.1 8.5 - 10.3 mg/dL [facility] Blood 02/26/2024 5:42 AM CDT 02/26/2024 6:50 AM CDT Josefa Escaleragardner LAB BLOOD ORDERABLES Pilar l Result Performing Organization Address [facility] de Phone Number LESLIE[address] [place] [address] * POCT glucose (02/26/2024 4:22 AM CDT) Glucose, POC 125 70 - 199 mg/dL Glucose comment 1 Use This Result [facility] Blood 02/26/2024 4:22 AM CDT 02/26/2024 4:22 AM CDT [facility] PO[facility] ORDERABLES - DEVICE Fin al Result Performing Organization Address [facility] de Phone Number [address] [place] [address] * POCT glucose (02/26/2024 12:14 AM CDT) Glucose, POC 121 70 - 199 mg/dL Blood 02/26/2024 12:1 4 AM CDT 02/26/2024 12:14 AM CDT Sa Rivera DO LAB POCT ORDERABLES - DEVICE Fin al Result Performing Organization Address [facility] de Phone Number [address] [place] [address] * (ABNORMAL) POCT glucose (02/25/2024 7:22 PM CDT) Glucose, POC 362(H) 70 - 199 mg/dL Glucose comment 1 Use This Result [facility] Glucose comment 2 RN/MD Notified [facility] Blood 02/25/2024 7:22 PM CDT 02/25/2024 7:22 PM CDT Diana Rivera DO LAB POCT ORDERABLES - DEVICE Fin al Result Performing Organization Address [facility] de Phone Number ZULEMA [address] [address] * POCT glucose (02/25/2024 4:26 PM CDT) [facility] Glucose, POC 152 70 - 199 mg/dL Glucose comment 1 Use This Result [facility] Blood 02/25/2024 4:26 PM CDT 02/25/2024 4:26 PM CDT Diana Rivera DO LAB POCT ORDERABLES - DEVICE Fin al Result Performing Organization Address [facility] de Phone Number ZULEMA [address] [address] * TRANSTHORACIC ECHO (TTE) COMPLETE W DOPPLER/CF W CONTRAST (02/25/2024 2:03 PM CDT) Anatomical Region Laterality Modality Ultrasound 02/25/2024 2:03 PM CDT Narrative 02/26/2024 4:01 PM CDT ? Adult Echocardiogram + ----- + :Name: BRI JONES ??Study Date: 02/25/2024 ?Status: MHB ?: : ?Patient Location: [facility]^[id number]^Height: 71 in ?: : ?Weight: 142 lbBP: 142/89 mmHg: :: 1965 ? Gender: Male ?BSA: 1.8 m2 ?: :Reason For Study: Endocarditis ? : :Ordering Physician: ?: :TELEMAQUE, KEMUEL ?: :Referring Physician: NO, ? : :PHYSICIAN ?: :Performed By: Kaylee ?: :Zully, ZAFAR ?: + ----- + Procedure A two-dimensional transthoracic echocardiogram with color flow and Doppler was performed. The study was technically difficult due to patient's 'underlying lung condition'. A contrast injection of Definity was performed to improve assessment of LV function. Definity lot # is ' [id number] '. Left Ventricle The left ventricle is [...] + :Name: BRI JONES Study Date: 02/25/2024Status: MHB : : Patient Location: [address]^[id number]^Height: 71 in : : : 142 lbBP: 142/89 mmHg: :: 1965 Gender: MaleBSA: 1.8 m2 : :Reason For Study: Endocarditis: :Ordering Physician:: :CORBIN COLE: :Referring Physician: MAGDALENA,: :PHYSICIAN: :Performed By: Kaylee: :ZAFAR Andrea: + [...] Alfonso MD 02/26/2024 04:01 PM us Corbin Cole MD CV ECHO PROCEDURES F inal Result * POCT glucose (02/25/2024 11:47 AM CDT) Glucose, POC 198 70 - 199 mg/dL Glucose comment 1 Use This Result [facility] Glucose comment 2 RN/MD Notified [facility] Blood 02/25/2024 11:4 7 AM CDT 02/25/2024 11:47 AM CDT us Diana Rivera DO LAB POCT ORDERABLES - DEVICE Fin al Result [facility] [address] [facility] Department [place] [address] * POCT glucose (02/25/2024 7:57 AM CDT) Glucose, POC 99 70 - 199 mg/dL Glucose comment 1 Use This Result [facility] Glucose comment 2 RN/MD Notified [facility] Blood 02/25/2024 7:57 AM CDT 02/25/2024 7:57 AM CDT Diana Rivera DO LAB POCT ORDERABLES - DEVICE Fin al Result Performing Organization Address [facility] de Phone Number [address] [address] * (ABNORMAL) POCT glucose (02/25/2024 4:21 AM CDT) Glucose, POC 218(H) 70 - 199 mg/dL Glucose comment 1 Use This Result [facility] Blood 02/25/2024 4:21 AM CDT 02/25/2024 4:21 AM CDT Corbin Cole MD LAB POCT ORDERABLES - DEVICE Final Result Performing Organization Address [facility] de Phone Number [address] [address] * eGFR (02/25/2024 2:22 AM CDT) Pathologist [facility] eGFR >90 >=60 mL/min/1. 73 m2 Comment: Interpretive Data Reference Interval Normal ?>/= 90 mL/min/1.73m2 Mildly decreased* ? 60 - 89 mL/min/1.73m2 Mildly to moderately decreased ?45 - 59 mL/min/1.73m2 Moderately to severely decreased ??30 - 44 mL/min/1.73m2 Severely decreased ?15 - 29 mL/min/1.73m2 Kidney Failure ?< 15 ??mL/min/1.73m2 *Relative to young adult level Estimated glomerular filtration rate is determined by the 2021 CKD-EPI equation recommended by the National Kidney [...] MD LAB BLOOD ORDERABLES Final R esult [facility] [address] [facility] Department [place] [address] * (ABNORMAL) Differential, auto (02/25/2024 2:22 AM CDT) Pathologist [facility] Neutrophil abs 10.0(H) 1.5 - 6.5 K/cumm Imm gran abs 0.1 0.0 - 0.1 K/cumm [facility] Lymphocyte abs 4.0(H) 0.8 - 3.3 K/cumm [facility] Monocyte abs 1.2(H) 0.2 - 0.8 K/cumm [facility] Eosinophil abs 0.0 0.0 - 0.5 K/cumm [facility] Basophil abs 0.0 0.0 - 0.1 K/cumm [facility] Neutrophil pct 65.4 % [facility] Comment: Interpretive Data Percent cell count reference ranges are not reported, since discordance with absolute values may lead to misinterpretation of CBC data. Current Interpretive Data was last revised on 2018. Imm gran pct 0.7 % [facility] Comment: Interpretive Data Percent cell count reference ranges are not reported, since discordance with absolute values may lead to misinterpretation of CBC data. Current Interpretive Data was last revised on 2018. Lymphocyte pct 26.0 % [facility] Comment: Interpretive Data Percent cell count reference ranges are not reported, since discordance with absolute values may lead to misinterpretation of CBC data. Current Interpretive Data was last revised on 2018. Monocyte pct 7.8 % [facility] Comment: Interpretive Data Percent cell count reference ranges are not reported, since discordance with absolute values may lead to misinterpretation of CBC data. Current Interpretive Data was last revised on 2018. Eosinophil pct 0.0 % [facility] Comment: Interpretive Data Percent cell count reference ranges are not reported, since discordance with absolute values may lead to misinterpretation of CBC data. Current Interpretive Data was last revised on 2018. Basophil pct 0.1 % [facility] Comment: Interpretive Data Percent cell count reference ranges are not reported, since discordance with absolute values may lead to misinterpretation of CBC data. Current Interpretive Data was last revised on 2018. Blood 02/25/2024 2:22 AM CDT 02/25/2024 3:28 AM CDT us Osmar Orta MD LAB BLOOD ORDERABLES Final R esult [place] [id number] [facility] Department [place] [address] * Comprehensive metabolic panel (02/25/2024 2:22 AM CDT) Sodium 140 135 - 145 mmol/L Potassium, pl 3.9 3.3 - 4.9 mmol/L [facility] Chloride 102 97 - 110 mmol/L [facility] CO2 28 22 - 32 mmol/L [facility] Anion gap 10 2 - 15 mmol/L [facility] BUN 22 6 - 25 mg/dL [facility] Creatinine 0.90 0.80 - 1.30 mg/dL [facility] Glucose 71 70 - 199 mg/dL [facility] Comment: Delta - Results Reviewed [...] 2022. Calcium 8.9 8.5 - 10.3 mg/dL [facility] Bilirubin, total 0.2 0.1 - 1.2 mg/dL [facility] Protein, pl 7.4 6.5 - 8.5 g/dL [facility] Albumin 3.5 3.5 - 5.0 g/dL [facility] Alk phos 113 40 - 130 Units/L [facility] ALT 27 7 - 55 Units/L [facility] AST 22 10 - 50 Units/L [facility] Blood 02/25/2024 2:22 AM CDT 02/25/2024 3:28 AM CDT us Osmar Orta MD LAB BLOOD ORDERABLES Final R esult [facility] [address] [facility] Department of Laboratories [place], [place] [id number] * (ABNORMAL) CBC with auto differential (02/25/2024 2:22 AM CDT) WBC 15.2(H) 3.8 - 9.9 K/cumm Hgb 11.1(L) 13.0 - 17.5 g/dL [facility] Hct 33.6(L) 38.9 - 50.3 % [facility] Plt 405(H) 150 - 400 K/cumm [facility] MPV 10.2 9.1 - 12.3 fL [facility] RBC 3.17(L) 4.30 - 5.80 M/cumm [facility] MCV 106.0(H) 81.3 - 96.4 fL [facility] MCH 35.0(H) 27.1 - 33.3 pg [facility] MCHC 33.0 32.3 - 35.7 g/dL [facility] RDW CV 15.9(H) 11.1 - 14.9 % [facility] RDW SD 62.0(H) 35.7 - 48.1 fL [facility] NRBC abs 0.09(H) 0.00 - 0.01 K/cumm [facility] Blood 02/25/2024 2:22 AM CDT 02/25/2024 3:28 AM CDT us Osmar Orta MD LAB BLOOD ORDERABLES Final R esult Performing Organization Address [facility] Co de Phone Number ZULEMA [address] [place] [address] * POCT glucose (02/25/2024 2:15 AM CDT) Glucose, POC 78 70 - 199 mg/dL Blood 02/25/2024 2:15 AM CDT 02/25/2024 2:15 AM CDT us Corbin Cole MD LAB POCT ORDERABLES - DEVICE Final Result Performing Organization Address [facility] de Phone Number LESLIE[address] [place] [address] * POCT glucose (02/24/2024 11:22 PM CDT) Glucose, POC 152 70 - 199 mg/dL Glucose comment 1 Use This Result [facility] Blood 02/24/2024 11:2 2 PM CDT 02/24/2024 11:22 PM CDT Corbin Cole MD LAB POCT ORDERABLES - DEVICE Final Result Performing Organization Address [facility] Co de Phone Number ZULEMA [address] [place] [address] * (ABNORMAL) POCT glucose (02/24/2024 7:32 PM CDT) Glucose, POC 229(H) 70 - 199 mg/dL Glucose comment 1 Use This Result ZULEMA Blood 02/24/2024 7:32 PM CDT 02/24/2024 7:32 PM CDT us Corbin Cole MD LAB POCT ORDERABLES - DEVICE Final Result ZULEMA [address] [facility] [place] [address] * POCT glucose (02/24/2024 4:57 PM CDT) Glucose, POC 131 70 - 199 mg/dL Glucose comment 1 Use This Result ZULMEA Blood 02/24/2024 4:57 PM CDT 02/24/2024 4:57 PM CDT Corbin Cole MD LAB POCT ORDERABLES - DEVICE Final Result Performing Organization Address [facility] Co de Phone Number ZULEMA [address] [place] [address] * Blood culture Blood Arm, right (02/24/2024 1:18 PM CDT) Report Final Report: No growth Comment:Testing performed by : [facility], [address] [facility], [place]., [address] Blood (Arm, right) 02/24/2024 1:18 PM CDT [...] organism identification may be performed using the Verigene Gram-Positive Blood Culture Assay. This assay detects microbial DNA in positive blood culture broth via hybridization of target DNA to capture oligonucleotides on a microarray. This assay has been cleared by the [place] Food and Drug Administration and its performance characteristics have been verified by the [facility] Microbiology Laboratory. 5. ?For questions about this culture, contact the Microbiology Laboratory at [phone]. Interpretive data was last revised on 2020. Corbin Cole MD LAB MICROBIOLOGY - [facility] ORDERABLES Final Result ZULEMA [address] [facility] Department [place] [address] * Blood culture Blood Arm, right (02/24/2024 12:56 PM CDT) Report Final Report: No growth Comment:Testing performed by : [facility], [address] [facility], [place]., [address] Blood (Arm, right) 02/24/2024 12:56 PM CDT 02/24/2024 3:55 PM CDT Carlos A OPOLE - 02/28/2024 4:01 PM CDT Collection->Peripheral 1. [...] organism identification may be performed using the Verigene Gram-Positive Blood Culture Assay. This assay detects microbial DNA in positive blood culture broth via hybridization of target DNA to capture oligonucleotides on a microarray. This assay has been cleared by the [place] Food and Drug Administration and its performance characteristics have been verified by the [facility] Microbiology Laboratory. 5. ?For questions about this culture, contact the Microbiology Laboratory at [phone]. Interpretive data was last revised on 2020. Corbin Cole MD LAB MICROBIOLOGY - G ENERAL ORDERABLES Final Result Performing Organization Address City/[facility] Co de Phone Number ZULEMA [address] [place] [address] * POCT glucose (02/24/2024 11:51 AM CDT) Glucose, POC 105 70 - 199 mg/dL Glucose comment 1 Use This Result ZULEMA Blood 02/24/2024 11:5 1 AM CDT 02/24/2024 11:51 AM CDT Result [facility] Corbin Cole MD LAB POCT ORDERABLES - DEVICE Final Result Performing Organization Address [facility] de Phone Number ZULEMA [address] [place] [address] * POCT glucose (02/24/2024 8:22 AM CDT) Glucose, POC 112 70 - 199 mg/dL Glucose comment 1 Use This Result ZULEMA Blood 02/24/2024 8:22 AM CDT 02/24/2024 8:22 AM CDT Result [facility] Corbin Cole MD LAB POCT ORDERABLES - DEVICE Final Result Performing Organization Address [facility] de Phone Number LESLIE[address] [place] [address] * eGFR (02/24/2024 4:56 AM CDT) Pathologist [facility] eGFR >90 >=60 mL/min/1. 73 m2 Comment: [...] NP LAB BLOOD ORDERABLES Pilar pawel Result ZULEMA [address] [facility] [place] [address] * (ABNORMAL) CBC without differential (02/24/2024 4:56 AM CDT) [facility] WBC 11.7(H) 3.8 - 9.9 K/cumm Hgb 11.3(L) 13.0 - 17.5 g/dL [facility] Hct 34.2(L) 38.9 - 50.3 % [facility] Plt 382 150 - 400 K/cumm [facility] MPV 10.3 9.1 - 12.3 fL [facility] RBC 3.23(L) 4.30 - 5.80 M/cumm [facility] MCV 105.9(H) 81.3 - 96.4 fL [facility] MCH 35.0(H) 27.1 - 33.3 pg [facility] MCHC 33.0 32.3 - 35.7 g/dL [facility] RDW CV 15.9(H) 11.1 - 14.9 % [facility] RDW SD 61.6(H) 35.7 - 48.1 fL [facility] NRBC abs 0.03(H) 0.00 - 0.01 K/cumm [facility] Blood 02/24/2024 4:56 AM CDT 02/24/2024 6:09 AM CDT Josefa Taylor NP LAB BLOOD ORDERABLES Pilar l Result [facility] [address] [facility] Department [place] [address] * (ABNORMAL) Basic metabolic panel (02/24/2024 4:56 AM CDT) Sodium 137 135 - 145 mmol/L Potassium, pl 4.0 3.3 - 4.9 mmol/L [facility] Chloride 98 97 - 110 mmol/L [facility] CO2 30 22 - 32 mmol/L [facility] Anion gap 9 2 - 15 mmol/L [facility] BUN 19 6 - 25 mg/dL [facility] Creatinine 0.67(L) 0.80 - 1.30 mg/dL [facility] Glucose 288(H) 70 - 199 mg/dL [facility] Comment: Interpretive Data Fasting glucose [...] 2022. Calcium 9.0 8.5 - 10.3 mg/dL [facility] Blood 02/24/2024 4:56 AM CDT 02/24/2024 6:09 AM CDT Josefa Taylor NP LAB BLOOD ORDERABLES Pilar l Result Performing Organization Address [facility] Co de Phone Number [address] [place] [address] * (ABNORMAL) POCT glucose (02/24/2024 4:14 AM CDT) Glucose, POC 345(H) 70 - 199 mg/dL Glucose comment 1 Use This Result [facility] Glucose comment 2 RN/MD Notified [facility] Blood 02/24/2024 4:14 AM CDT 02/24/2024 4:14 AM CDT Corbin Cole MD LAB POCT ORDERABLES - DEVICE Final Result Performing Organization Address [facility] Co de Phone Number [address] [place] [address] * POCT glucose (02/24/2024 12:00 AM CDT) Glucose, POC 115 70 - 199 mg/dL Blood 02/24/2024 02/24/2024 12: 00 AM CDT Corbin Cole MD LAB POCT ORDERABLES - DEVICE Final Result Performing Organization Address City/[facility] Co de Phone Number [address] [place] [address] * (ABNORMAL) POCT glucose (02/23/2024 8:19 PM CDT) Glucose, POC 336(H) 70 - 199 mg/dL Glucose comment 1 Use This Result [facility] Glucose comment 2 RN/MD Notified ZULEMA Blood 02/23/2024 8:19 PM CDT 02/23/2024 8:19 PM CDT Corbin Cole MD LAB POCT ORDERABLES - DEVICE Final Result Performing Organization Address [facility] Co de Phone Number [address] [place] [address] * (ABNORMAL) POCT glucose (02/23/2024 4:48 PM CDT) Glucose, POC 245(H) 70 - 199 mg/dL Glucose comment 1 Use This Result [facility] Glucose comment 2 RN/MD Notified [facility] [place] Blood 02/23/2024 4:48 PM CDT 02/23/2024 4:48 PM CDT Corbin Cole MD LAB POCT ORDERABLES - DEVICE Final Result Performing Organization Address [facility] Co de Phone Number [address] [place] [address] * POCT glucose (02/23/2024 11:30 AM CDT) Glucose, POC 118 70 - 199 mg/dL Glucose comment 1 Use This Result [facility] [place] Blood 02/23/2024 11:3 0 AM CDT 02/23/2024 11:30 AM CDT Corbin Cole MD LAB POCT ORDERABLES - DEVICE Final Result Performing Organization Address [facility] Co de Phone Number [address] [place] [address] * Mycoplasma pneumoniae PCR Sputum (02/23/2024 8:53 AM CDT) Pathologist [facility] M. pneumoniae DNA Not Detected Not Detected [facility] Comment: Interpretive Data: This assay tests for the presence of Mycoplasma pneumoniae. ?? This test is laboratory developed and its performance characteristics were determined by the performing laboratory in a manner consistent with CLIA requirements. This test has not been cleared or approved by the U.S. Food and Drug Administration. Current Interpretive Data was last revised on 2020. Testing performed by: [facility], [address] [facility] [place] [address] Sputum 02/23/2024 8:53 AM CDT 02/23/2024 7:05 PM CDT Corbin Cole MD LAB MICROBIOLOGY - G ENERAL ORDERABLES Final Result Performing Organization Address [facility] Co de Phone Number [place] [address] [facility] [place] [address] [facility] * POCT glucose (02/23/2024 7:36 AM CDT) [facility] Glucose, POC 159 70 - 199 mg/dL Glucose comment 1 Use This Result [facility] Blood 02/23/2024 7:36 AM CDT 02/23/2024 7:36 AM CDT Corbin Cole MD LAB POCT ORDERABLES - DEVICE Final Result Performing Organization Address [facility] de Phone Number [place] [address] [facility] [place] [address] * eGFR (02/23/2024 6:31 AM CDT) Pathologist [facility] eGFR >90 >=60 mL/min/1. 73 m2 Comment: [...] NP LAB BLOOD ORDERABLES Pilar armas Result [facility] [address] [facility] Department [place] [address] * (ABNORMAL) CBC without differential (02/23/2024 6:31 AM CDT) WBC 7.7 3.8 - 9.9 K/cumm Hgb 10.5(L) 13.0 - 17.5 g/dL [facility] Hct 31.5(L) 38.9 - 50.3 % [facility] Plt 339 150 - 400 K/cumm [facility] MPV 9.9 9.1 - 12.3 fL [facility] RBC 3.01(L) 4.30 - 5.80 M/cumm [facility] MCV 104.7(H) 81.3 - 96.4 fL [facility] MCH 34.9(H) 27.1 - 33.3 pg [facility] MCHC 33.3 32.3 - 35.7 g/dL [facility] RDW CV 15.5(H) 11.1 - 14.9 % [facility] RDW SD 59.8(H) 35.7 - 48.1 fL [facility] NRBC abs 0.00 0.00 - 0.01 K/cumm [facility] Blood 02/23/2024 6:31 AM CDT 02/23/2024 7:19 AM CDT Josefa Taylor NP LAB BLOOD ORDERABLES Pilar armas Result [facility] [address] [facility] Department [place] [address] * (ABNORMAL) Basic metabolic panel (02/23/2024 6:31 AM CDT) Sodium 135 135 - 145 mmol/L Potassium, pl 4.2 3.3 - 4.9 mmol/L [facility] Chloride 98 97 - 110 mmol/L [facility] CO2 28 22 - 32 mmol/L [facility] Anion gap 9 2 - 15 mmol/L [facility] BUN 15 6 - 25 mg/dL [facility] Creatinine 0.62(L) 0.80 - 1.30 mg/dL [facility] Glucose 239(H) 70 - 199 mg/dL [facility] Comment: Interpretive Data Fasting glucose [...] 2022. Calcium 8.3(L) 8.5 - 10.3 mg/dL [facility] Blood 02/23/2024 6:31 AM CDT 02/23/2024 7:19 AM CDT Josefa Taylor NP LAB BLOOD ORDERABLES Pilar l Result Performing Organization Address [facility] Co de Phone Number [address] [address] * POCT glucose (02/22/2024 7:17 PM CDT) Glucose, POC 186 70 - 199 mg/dL Glucose comment 1 Use This Result [facility] Glucose comment 2 RN/MD Notified [facility] Blood 02/22/2024 7:17 PM CDT 02/22/2024 7:17 PM CDT Corbin Cole MD LAB POCT ORDERABLES - DEVICE Final Result Performing Organization Address [facility] de Phone Number [address] [address] * POCT glucose (02/22/2024 5:21 PM CDT) Glucose, POC 176 70 - 199 mg/dL Blood 02/22/2024 5:21 PM CDT 02/22/2024 5:21 PM CDT Corbin Cole MD LAB POCT ORDERABLES - DEVICE Final Result Performing Organization Address [facility] de Phone Number [address] [address] * Strep pneumoniae antigen, urine Urine (02/22/2024 3:05 PM CDT) [facility] S. pneumoniae Ag Negative Negative Comment: Interpretive [...] ENERAL ORDERABLES Final Result Performing Organization Address [facility] Co de Phone Number LESLIE[address] [address] * Legionella antigen Urine (02/22/2024 3:05 PM CDT) Legionella Ag Negative Negative Comment: Interpretive Data This test detects only Legionella pneumophila serogroup 1 antigen. Testing performed by [facility] Microbiology Laboratory ([phone]). Current interpretive data was last revised on 2020. Testing performed by: [facility], [address] [place]., [address] Urine 02/22/2024 3:05 PM CDT 02/22/2024 7:06 PM CDT Corbin Cole MD LAB MICROBIOLOGY - ENERAL ORDERABLES Final Result Performing Organization Address [facility] Co de Phone Number [place] [address] [place] [address] * MRSA Only (Staphylococcus aureus) PCR Nasal (02/22/2024 3:05 PM CDT) PCR Scrn, Methicillin resistant Staphylococcus aureus (MRSA) Not Detected Not Detected Comment: Interpretive Data Testing performed using Nucleic Acid Amplification with the MetaLINCS Xpert MRSA NxG Assay. This assay detects target DNA from mecA, mecC and the SCCmec insertion site of Staphylococcus aureus using Real-Time PCR and has been cleared by the FDA. Performance characteristics have been verified by the [facility]. Current Interpretive Data was last revised on 2023 Nasal 02/22/2024 3:05 PM CDT 02/22/2024 3:30 PM CDT us Corbin Cole MD LAB MICROBIOLOGY - G ENERAL ORDERABLES Final Result ZULEMA CHAVEZ [address] [facility] Department [place] [address] * Respiratory pathogen panel Nasopharyngeal (02/22/2024 3:05 PM CDT) Influenza A RNA Not Detected Not Detected Comment:Testing performed by : [facility], [address] [place]., [address] Influenza B RNA Not Detected Not Detected ZULEMA Comment:Testing performed by : [facility], [address] [place]., [address] RSV RNA Not Detected Not Detected ZULEMA Comment:Testing performed by : [facility], [address] [place]., [address] COVID-19 RNA Not Detected Not Detected ZULEMA Comment:Testing performed by : [facility], [address] [facility] [place] [address] Coronavirus 229E RNA Not Detected Not Detected ZULEMA Comment:Testing performed by : [facility], [address] [facility] [place] [address] Coronavirus HKU1 RNA Not Detected Not Detected ZULEMA Comment:Testing performed by : [facility], [address] [facility] [place] [address] Coronavirus NL63 RNA Not Detected Not Detected ZULEMA Comment:Testing performed by : [facility], [address] [facility] [place] [address] Coronavirus OC43 RNA Not Detected Not Detected ZULEMA Comment:Testing performed by : [facility], [address] [facility] [place] [address] Adenovirus DNA Not Detected Not Detected ZULEMA Comment:Testing performed by : [facility], [address] [facility] [place] [address] Metapneumovirus RNA Not Detected Not Detected ZULEMA Comment:Testing performed by : [facility], [address] [facility], [address] Rhinovirus/Enterov irus RNA Not Detected Not Detected ZULEMA Comment:Testing performed by : [facility], [address] [facility], [address] Parainfluenza 1 RNA Not Detected Not Detected ZULEMA Comment:Testing performed by : [facility], [address] [facility], [address] Parainfluenza 2 RNA Not Detected Not Detected ZULEMA Comment:Testing performed by : [facility], [address] [facility], [address] Parainfluenza 3 RNA Not Detected Not Detected ZULEMA Comment:Testing performed by : [facility], [address] [facility], [address] Parainfluenza 4 RNA Not Detected Not Detected BANNERELLY Comment:Testing performed by : [facility], [address] [facility], [address] B. pertussis DNA Not Detected Not Detected ZULEMA Comment:Testing performed by : [facility], [address] [facility], [address] B. parapertussis DNA Not Detected Not Detected ZULEMA Comment:Testing performed by : [facility], [address] [place] [address], [address] C. pneumoniae DNA Not Detected Not Detected BANNERELLY Comment:Testing performed by : [facility], [address] [place] [address], [address] M. pneumoniae DNA Not Detected Not Detected BANNERELLY Comment:Testing performed by : [facility], [address] [place] [address], [address] Nasopharyngeal 02/22/2024 3: 05 PM CDT 02/22/2024 4:56 PM CDT Narrative [facility] - 02/22/2024 5:56 PM CDT Is the Patient experiencing symptoms consistent with COVID?->Yes Surveillance testing for transplant patient?->No ??Interpretive Data The [employer] FilmArray Respiratory Panel (RP2.1) assay is a [...] assay has FDA clearance for testing of COURT OPERATIONS CLERK swabs. ??The performance of additional specimen types has been assessed by the performing laboratory. ??The performance characteristics of this assay have been determined by [facility] Molecular Infectious Disease Laboratory. Current interpretive data was last revised on 22. us Corbin Cole MD LAB MICROBIOLOGY - G ENERAL ORDERABLES Final Result Performing Organization Address City/[facility]/ZIP Co de Phone Number ZULEMA [facility] [place] [address] * Lactate (02/22/2024 2:27 PM CDT) Lactate 2.0 0.7 - 2.0 mmol/L Blood 02/22/2024 2:27 PM CDT 02/22/2024 2:31 PM CDT Corbin Cole MD LAB BLOOD ORDERABLES Final Result Performing Organization Address [facility] Phone Number ZULEMA [address] [address] * XR Chest PA Lateral 2 Views [...] D: ??02/22/2024 2:09 PM T: Report ID: [id number] Reading Location: ??[id number] Procedure Note Dallas Gonzalez MD - 02/22/2024 [...] Dallas Gonzalez M.D. KR T: Report ID: [id number] Reading Location: [place] [address] Corbin Cole MD IMG XR PROCEDURES Fi nal Result * (ABNORMAL) POCT glucose (02/22/2024 11:38 AM CDT) Glucose, POC 247(H) 70 - 199 mg/dL Glucose comment 1 Use This Result ZULEMA CHAVEZ Blood 02/22/2024 11:3 8 AM CDT 02/22/2024 11:38 AM CDT Corbin Cole MD LAB POCT ORDERABLES - DEVICE Final Result ZULEMA [address] [facility] Department [place] [address] * (ABNORMAL) Blood culture Blood (02/22/2024 10:26 AM CDT) Direct Specimen Exam Stain: Gram Positive Cocci in clusters Time to culture positivity (aerobic media): 36.2 hours Comment:Testing performed by : [facility], [address] [facility], [place]., [address] Report Final Report: Staphylococcus aureus For susceptibility results, refer to accession number [id number] on the blood culture from 02/22/2024 (.) ZULEMA CHAVEZ Comment:Testing performed by : [facility], [address] [place]., [address] Organism STAPHYLOCOCCUS AUREUS ZULEMA CHAVEZ Blood 02/22/2024 10:2 6 AM CDT 02/22/2024 1:27 PM CDT Narrative ZULEMA CHAVEZ - 02/29/2024 2:09 PM CDT From a [...] organism identification may be performed using the Bol[employer] Trevorigene Gram-Positive Blood Culture Assay. This assay detects microbial DNA in positive blood culture broth via hybridization of target DNA to capture oligonucleotides on a microarray. This assay has been cleared by the [place] Food and Drug Administration and its performance characteristics have been verified by the [facility] Microbiology Laboratory. 5. ?For questions about this culture, contact the Microbiology Laboratory at [phone]. Interpretive data was last revised on 2020. Corbin Cole MD LAB MICROBIOLOGY - G ENERAL ORDERABLES Final Result ZULEMA CHAVEZ [address] [facility] Department [place] [address] * (ABNORMAL) Blood culture Blood (02/22/2024 10:21 AM CDT) Direct Specimen Exam Molecular Analysis: Staphylococcus aureus, methicillin susceptible (MSSA) detected by the Verigene Blood Culture Nucleic Acid Test. This test does not exclude the possibility of a mixed bacterial infection. Notification of: Staphylococcus aureus, methicillin susceptible (MSSA) called to and read back by: Gareth Suárez MT ([phone]) on 02/23/2024 17:09:44 by: Anjelica Zayas MT Comment:Testing performed by : [facility], [address] [place] [address]., [id number] Direct Specimen Exam Stain: Gram Positive Cocci in clusters Time to culture positivity (aerobic media): 23.8 hours Notification of: Gram Positive Cocci in clusters called to and read back by: Irish Dee MT [phone] on 02/23/2024 13:58:10 by: Quiana Pierre MLS Test result called to and read back by [email or web address] on 02/23/2024 14:08:19 by [email or web address] ZULEMA Comment:Testing performed by : [facility], [address] [place] [address]., [id number] Report Final Report: Staphylococcus aureus Methicillin susceptible (MSSA) by penicillin binding protein 2a (PBP2a) testing. (.) ZULEMA Comment:Testing performed by : [facility], [address] [place] [address], [id number] Organism STAPHYLOCOCCUS AUREUS ZULEMA Blood 02/22/2024 10:2 1 AM CDT 02/22/2024 1:27 PM CDT Narrative ZULEMA - 02/29/2024 2:09 PM CDT Collection->Peripheral 1. [...] organism identification may be performed using the Bol[employer] Trevorigene Gram-Positive Blood Culture Assay. This assay detects microbial DNA in positive blood culture broth via hybridization of target DNA to capture oligonucleotides on a microarray. This assay has been cleared by the [place] Food and Drug Administration and its performance characteristics have been verified by the [facility] Microbiology Laboratory. 5. ?For questions about this culture, contact the Microbiology Laboratory at [phone]. Interpretive data was last revised on 2020. [...] MICROBIOLOGY - G ENERAL ORDERABLES Final Result LESLIEELLY CHAVEZ [address] [facility] Department [place] [address] * POCT glucose (02/22/2024 7:46 AM CDT) [facility] Glucose, POC 191 70 - 199 mg/dL Glucose comment 1 Use This Result ZULEMA CHAVEZ Blood 02/22/2024 7:46 AM CDT 02/22/2024 7:46 AM CDT Corbin Cole MD LAB POCT ORDERABLES - DEVICE Final Result Performing Organization Address City/[facility] Co de Phone Number ZULEMA [address] [facility] [place] [address] * eGFR (02/22/2024 5:18 AM CDT) [facility] eGFR >90 >=60 mL/min/1. 73 m2 [...] ORDERABLES Pilar l Result Performing Organization Address City/[facility]/ZIP Co de Phone Number ZULEMA [address] [facility] [place] [address] * (ABNORMAL) CBC without differential (02/22/2024 5:18 AM CDT) [facility] WBC 17.1(H) 3.8 - 9.9 K/cumm Hgb 9.6(L) 13.0 - 17.5 g/dL [facility] Hct 28.6(L) 38.9 - 50.3 % [facility] Plt 317 150 - 400 K/cumm [facility] MPV 10.0 9.1 - 12.3 fL [facility] RBC 2.73(L) 4.30 - 5.80 M/cumm [facility] MCV 104.8(H) 81.3 - 96.4 fL [facility] [facility] MCH 35.2(H) 27.1 - 33.3 pg [facility] MCHC 33.6 32.3 - 35.7 g/dL [facility] RDW CV 15.6(H) 11.1 - 14.9 % [facility] RDW SD 59.9(H) 35.7 - 48.1 fL [facility] NRBC abs 0.03(H) 0.00 - 0.01 K/cumm [facility] Blood 02/22/2024 5:18 AM CDT 02/22/2024 5:48 AM CDT Josefa Taylor NP LAB BLOOD ORDERABLES Pilar armas Result [place] [id number] [facility] Department [place] [address] * (ABNORMAL) Basic metabolic panel (02/22/2024 5:18 AM CDT) [facility] Sodium 134(L) 135 - 145 mmol/L Potassium, pl 3.7 3.3 - 4.9 mmol/L [facility] Chloride 97 97 - 110 mmol/L [facility] CO2 29 22 - 32 mmol/L [facility] Anion gap 8 2 - 15 mmol/L [facility] BUN 18 6 - 25 mg/dL [facility] Creatinine 0.75(L) 0.80 - 1.30 mg/dL [facility] Glucose 235(H) 70 - 199 mg/dL [facility] Comment: Interpretive Data Fasting glucose [...] 2022. Calcium 7.8(L) 8.5 - 10.3 mg/dL [facility] Blood 02/22/2024 5:18 AM CDT 02/22/2024 5:48 AM CDT Josefa Taylor NP LAB BLOOD ORDERABLES Pilar l Result Performing Organization Address City/[facility]/ZIP Co de Phone Number ZULEMA [address] [place] [address] * (ABNORMAL) POCT glucose (02/22/2024 4:24 AM CDT) Glucose, POC 279(H) 70 - 199 mg/dL Glucose comment 1 Use This Result [facility] Blood 02/22/2024 4:24 AM CDT 02/22/2024 4:24 AM CDT Result [facility] Corbin Cole MD LAB POCT ORDERABLES - DEVICE Final Result Performing Organization Address City/[facility]/ZIP Co de Phone Number [address] [place] [address] * (ABNORMAL) POCT glucose (02/22/2024 1:58 AM CDT) Glucose, POC 272(H) 70 - 199 mg/dL Glucose comment 1 Use This Result [facility] Glucose comment 2 Will Notify Nurse [facility] Blood 02/22/2024 1:58 AM CDT 02/22/2024 1:58 AM CDT Corbin Cole MD LAB POCT ORDERABLES - DEVICE Final Result Performing Organization Address [facility] de Phone Number ZULEMA [address] [address] * (ABNORMAL) POCT glucose (02/22/2024 12:04 AM CDT) Glucose, POC 262(H) 70 - 199 mg/dL Glucose comment 1 Use This Result [facility] Blood 02/22/2024 12:0 4 AM CDT 02/22/2024 12:04 AM CDT Corbin Cole MD LAB POCT ORDERABLES - DEVICE Final Result Performing Organization Address [facility] de Phone Number ZULEMA [address] [address] * POCT glucose (02/21/2024 7:44 PM CDT) Glucose, POC 184 70 - 199 mg/dL Glucose comment 1 Use This Result [facility] Blood 02/21/2024 7:44 PM CDT 02/21/2024 7:44 PM CDT Corbin Cole MD LAB POCT ORDERABLES - DEVICE Final Result Performing Organization Address [facility] de Phone Number ZULEMA [address] [address] * (ABNORMAL) POCT glucose (02/21/2024 6:26 PM CDT) Glucose, POC 217(H) 70 - 199 mg/dL Glucose comment 1 Use This Result [facility] Glucose comment 2 RN/MD Notified [facility] Blood 02/21/2024 6:26 PM CDT 02/21/2024 6:26 PM CDT us Corbin Cole MD LAB POCT ORDERABLES - DEVICE Final Result Performing Organization Address [facility] de Phone Number ZULEMA [address] [address] * POCT glucose (02/21/2024 4:04 PM CDT) [facility] Glucose, POC 118 70 - 199 mg/dL Glucose comment 1 Use This Result [facility] Glucose comment 2 RN/MD Notified [facility] Blood 02/21/2024 4:04 PM CDT 02/21/2024 4:04 PM CDT Corbin Cole MD LAB POCT ORDERABLES - DEVICE Final Result Performing Organization Address [facility] de Phone Number ZULEMA [address] [place] [address] * (ABNORMAL) POCT glucose (02/21/2024 11:27 AM CDT) [facility] Glucose, POC 330(H) 70 - 199 mg/dL Blood 02/21/2024 11:2 7 AM CDT 02/21/2024 11:27 AM CDT Corbin Cole MD LAB POCT ORDERABLES - DEVICE Final Result Performing Organization Address [facility] de Phone Number ZULEMA [address] [place] [address] * eGFR (02/21/2024 8:37 AM CDT) [facility] eGFR >90 >=60 mL/min/1. 73 m2 [...] NP LAB BLOOD ORDERABLES Pilar armas Result [facility] [address] [facility] Department [place] [address] * (ABNORMAL) CBC without differential (02/21/2024 8:37 AM CDT) WBC 9.6 3.8 - 9.9 K/cumm Hgb 12.3(L) 13.0 - 17.5 g/dL [facility] Hct 37.7(L) 38.9 - 50.3 % [facility] Plt 392 150 - 400 K/cumm [facility] MPV 9.9 9.1 - 12.3 fL [facility] RBC 3.50(L) 4.30 - 5.80 M/cumm [facility] MCV 107.7(H) 81.3 - 96.4 fL [facility] MCH 35.1(H) 27.1 - 33.3 pg [facility] MCHC 32.6 32.3 - 35.7 g/dL [facility] RDW CV 15.5(H) 11.1 - 14.9 % [facility] RDW SD 61.1(H) 35.7 - 48.1 fL [facility] NRBC abs 0.00 0.00 - 0.01 K/cumm [facility] Blood 02/21/2024 8:37 AM CDT 02/21/2024 8:52 AM CDT [facility] NP LAB BLOOD ORDERABLES Pilar l Result Performing Organization Address [facility] de Phone Number [address] [place] [address] * (ABNORMAL) Basic metabolic panel (02/21/2024 8:37 AM CDT) Pathologist [facility] Sodium 137 135 - 145 mmol/L Potassium, pl 4.0 3.3 - 4.9 mmol/L [facility] Chloride 98 97 - 110 mmol/L [facility] CO2 29 22 - 32 mmol/L [facility] Anion gap 10 2 - 15 mmol/L [facility] BUN 15 6 - 25 mg/dL [facility] Creatinine 0.54(L) 0.80 - 1.30 mg/dL [facility] Glucose 205(H) 70 - 199 mg/dL [facility] Comment: Interpretive Data Fasting glucose [...] 2022. Calcium 8.9 8.5 - 10.3 mg/dL [facility] Blood 02/21/2024 8:37 AM CDT 02/21/2024 8:52 AM CDT [facility] NP LAB BLOOD ORDERABLES Pilar l Result Performing Organization Address [facility] Co de Phone Number [address] [address] * Magnesium (02/21/2024 8:37 AM CDT) Magnesium 2.1 1.4 - 2.5 mg/dL Blood 02/21/2024 8:37 AM CDT 02/21/2024 8:52 AM CDT Josefa Taylor NP LAB BLOOD ORDERABLES Pilar l Result [address] [address] * POCT glucose (02/21/2024 8:01 AM CDT) Glucose, POC 174 70 - 199 mg/dL Blood 02/21/2024 8:01 AM CDT 02/21/2024 8:01 AM CDT Corbin Cole MD LAB POCT ORDERABLES - DEVICE Final Result Performing Organization Address [facility] Co de Phone Number [address] [address] * (ABNORMAL) POCT glucose (02/20/2024 8:39 PM CDT) Pathologist [facility] Glucose, POC 271(H) 70 - 199 mg/dL Glucose comment 1 Use This Result [facility] Glucose comment 2 RN/MD Notified [facility] Blood 02/20/2024 8:39 PM CDT 02/20/2024 8:39 PM CDT Pacheco Quintanilla MD LAB POCT ORDERABLES - DEV ICE Final Result Performing Organization Address City/[facility]/ZIP Co de Phone Number [address] [address] * (ABNORMAL) POCT glucose (02/20/2024 7:25 PM CDT) Glucose, POC 203(H) 70 - 199 mg/dL Glucose comment 1 Use This Result [facility] Glucose comment 2 RN/MD Notified [facility] Blood 02/20/2024 7:25 PM CDT 02/20/2024 7:25 PM CDT Pacheco Quintanilla MD LAB POCT ORDERABLES - DEV ICE Final Result Performing Organization Address [facility] Co de Phone Number [address] Department [place] [address] * POCT glucose (02/20/2024 6:34 PM CDT) Glucose, POC 181 70 - 199 mg/dL Blood 02/20/2024 6:34 PM CDT 02/20/2024 6:34 PM CDT Pacheco Quintanilla MD LAB POCT ORDERABLES - DEV ICE Final Result Performing Organization Address [facility] Co de Phone Number [address] [place] [address] * Surgical pathology (02/20/2024 12:58 PM CDT) Tissue (Gastric/Stomach biopsy) 02/20/2024 12:58 PM CDT Tissue (Esophageal biopsy) 02/20/2024 12:59 PM CDT Narrative PATHOLOGY [facility] - 02/27/2024 12:23 PM CDT [facility] Department of Pathology [address] [place] [id number] ?? Note to Patients: ??This report may [...] 58) Gender: ??M Address: ??[address] [place], [place] [address] [facility] #: [id number] Service: Medical Location: Patient Type: [facility] INPATIENT ? Taken: 02/20/2024 Received: 02/20/2024 Accessioned: [...] 0. ?? jjmhb/02/20/2024 14:23 DOMITILA Conrad, [facility] Microscopic slide review and interpretation for this case was performed at [facility], Department of Surgical Pathology, [address] [facility], [place] [id number], ??[place], [place] ??[address] ?? CLIA # [id number] The Herpes Simplex Virus I test was performed at [facility] Department of Surgical Pathology, [address] [place], [place] ??[address]. The Herpes Simplex Virus II test was performed at [facility] Department of Surgical Pathology, [address] [place], [place] ??[address]. The Cytomegalovirus test was performed at [facility], Department of Surgical Pathology, [address] [place], [place] ??[address]. us Gee Mcdaniel MD LAB PATHOLO GY ORDERABLES Final Result Performing Organization Address [facility] Co de Phone Number [facility] * POCT glucose (02/20/2024 12:43 PM CDT) Glucose, POC 126 70 - 199 mg/dL Blood 02/20/2024 12:4 3 PM CDT 02/20/2024 12:43 PM CDT us Pacheco Quintanilla MD LAB POCT ORDERABLES - DEV ICE Final Result Performing Organization Address [facility]/ZIP Co de Phone Number [facility] [place] 2[facility] [address] [facility] Department [place] [address] * EGD (02/20/2024 12:37 PM CDT) Anatomical Region Laterality Modality Other Narrative Procedure Note Gee Mcdaniel MD - 02/20/2024 12:37 PM CDT [facility] GI ENDOSCOPY Patient Name: Bri Jones Procedure Date: 02/20/2024 12:37 PM Date of : 1965 Admit Type: Inpatient Age: 58 Gender: Male Attending MD: Gee Ravi M.D. Room: [facility] ENDOSCOPY ROOM [facility] Note Status: Finalized Procedure: Upper GI [...] On: 02/20/2024 12:37 PM Recognized by the [employer] for promoting quality [...] NP LAB BLOOD ORDERABLES Pilar armas Result [facility] [address] [facility] Department [place] [address] * eGFR (02/20/2024 11:39 AM [...] Pilar l Result Performing Organization Address [facility] Co de Phone Number LESLIE[address] [place] [address] * T4, free (02/20/2024 11:39 AM CDT) Free T4 1.13 0.90 - 1.70 ng/dL Blood 02/20/2024 11:3 9 AM CDT 02/20/2024 11:44 AM CDT Narrative [facility] - 02/20/2024 1:50 PM CDT This test was reflexed from a TSH result. [facility]fl[facility]Honor[facility] LAB BLOOD ORDERABLES Pilar l Result Performing Organization Address [facility] de Phone Number [address] [place] [address] * (ABNORMAL) Thyroid Function [place] (02/20/2024 11:39 AM CDT) TSH 0.17(L) 0.30 - 4.20 mcIUnit/mL Blood 02/20/2024 11:3 9 AM CDT 02/20/2024 11:44 AM CDT Josefa Taylor NP LAB BLOOD ORDERABLES Pilar l Result Performing Organization Address [facility] de Phone Number ZULEMA [address] [address] * (ABNORMAL) Hemoglobin A1c (02/20/2024 11:39 AM CDT) [facility] Hgb A1C 6.7(H) 4.0 - 5.6 % Estimated Average Glucose 146 mg/dL [facility] Comment: The ADA recommends reporting an estimated Average Glucose (eAG) with all Hemoglobin A1c results using the equation derived from a study of 507 normal and diabetic adults. ??Minority populations were underrepresented and children were not included. ?? (Diabetes Care 31:4828-5916, 2008). ??The eAG is not equivalent to a fasting glucose. Blood 02/20/2024 11:3 9 AM CDT 02/20/2024 11:44 AM CDT Josefa Taylor NP LAB BLOOD ORDERABLES Pilar l Result Performing Organization Address [facility] de Phone Number [address] [address] * (ABNORMAL) CBC without differential (02/20/2024 11:39 AM CDT) [facility] WBC 11.9(H) 3.8 - 9.9 K/cumm Hgb 12.0(L) 13.0 - 17.5 g/dL [facility] Hct 35.8(L) 38.9 - 50.3 % [facility] Plt 359 150 - 400 K/cumm [facility] MPV 10.0 9.1 - 12.3 fL [facility] RBC 3.41(L) 4.30 - 5.80 M/cumm [facility] MCV 105.0(H) 81.3 - 96.4 fL [facility] MCH 35.2(H) 27.1 - 33.3 pg [facility] MCHC 33.5 32.3 - 35.7 g/dL [facility] RDW CV 16.1(H) 11.1 - 14.9 % [facility] RDW SD 62.1(H) 35.7 - 48.1 fL [facility] NRBC abs 0.02(H) 0.00 - 0.01 K/cumm [facility] Blood 02/20/2024 11:3 9 AM CDT 02/20/2024 11:44 AM CDT Josefa Taylor NP LAB BLOOD ORDERABLES Pilar armas Result [facility] [address] [facility] Department [place] [address] * (ABNORMAL) Basic metabolic panel (02/20/2024 11:39 AM CDT) Sodium 138 135 - 145 mmol/L Potassium, pl 4.0 3.3 - 4.9 mmol/L [facility] Chloride 99 97 - 110 mmol/L [facility] CO2 31 22 - 32 mmol/L [facility] Anion gap 8 2 - 15 mmol/L [facility] BUN 17 6 - 25 mg/dL [facility] Creatinine 0.64(L) 0.80 - 1.30 mg/dL [facility] Glucose 138 70 - 199 mg/dL [facility] Comment: Interpretive Data Fasting glucose [...] 2022. Calcium 8.6 8.5 - 10.3 mg/dL [facility] Blood 02/20/2024 11:3 9 AM CDT 02/20/2024 11:44 AM CDT [address]fa Esc[address]ardner [address] OPERATIONS CLERK LAB BLOOD ORDERABLES Pilar l Result Performing Organization Address [facility] Co de Phone Number ZULEMA [address] [address] * Magnesium (02/20/2024 11:39 AM CDT) Magnesium 1.9 1.4 - 2.5 mg/dL Blood 02/20/2024 11:3 9 AM CDT 02/20/2024 11:44 AM CDT Josefaflori DewittBrandon NP LAB BLOOD ORDERABLES Pilar armas Result Performing Organization Address [facility] de Phone Number ZULEMA [address] [address] documented in this encounter Visit Diagnoses Diagnosis Dysphagia- Primary Dysphagia, unspecified type Food impaction of esophagus, initial encounter 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) CAP (community acquired pneumonia) Pneumonia, organism unspecified Food impaction of esophagus Dysphagia, unspecified type documented in this encounter Admitting Diagnoses Diagnosis [...] 4:33 PM CDT 400 mg albuterol 2.5 mg/0.5 mL nebulizer solution 2.5 mg 2.5 mg, nebulization, Every 6 hours PRN (respiratory support technician), wheezing, Starting on Sat03/05/24 at 1342 Given 03/05/2024 7:51 PM CDT 2.5 mg albuterol HFA (PROVENTIL HFA,VENTOLIN HFA,PROAIR HFA) 90 mcg/actuation inhaler 2 puff 2 puff, inhalation, Every 6 hours while awake (respiratory support technician), First dose (after last modification) on Sat03/03/24 [...] Given 03/05/2024 8:07 AM CDT 40 mg benzonatate (TESSALON) capsule 200 mg 200 mg, [...] puff 2 puff, inhalation, 2 times daily (respiratory support technician), First dose on Sat02/20/24 at 2000, Rinse mouth with water after use. Do not swallow. Given 03/07/2024 7:03 AM CDT 2 puffs Given 03/06/2024 9:03 PM CDT 2 puffs Given 03/06/2024 8:10 AM CDT 2 puffs cefepime (MAXIPIME) 1,000 mg in sodium chloride [...] 11:29 PM CDT 1,000 mg 200 mL/hr dextrose (D10W) 10% bolus 250 mL [...] Call MD for each episode of hypoglycemia. STONE REPAIRER STATES GLUTOSE-15 CONTAINS GLUCOSE 40% W/W (50% [...] Given 03/06/2024 8:37 AM CDT 1,200 mg insulin glargine (LANTUS, SEMGLEE) 100 unit/mL [...] 12 Units Le ft Upper Abdomen insulin lispro [...] CDT 2 Units R ight Upper Abdomen montelukast (SINGULAIR) tablet 10 mg 10 mg, oral, Nightly, First dose on Angy 02/20/24 at 2100 Given 03/06/2024 8:49 PM CDT [...] 03/06/2024 8:38 AM CDT 40 mg peg [id number]-tusewbpd (ARTIFICAL TEARS) 1-0.2-0.2 % ophthalmic solution 1 drop 1 drop, each eye, 3 times daily PRN, dry eyes, Starting on 02/29/24 at 1227 Given 02/29/2024 4:22 PM CDT 1 drop ramelteon (ROZEREM) tablet 8 mg 8 mg, [...] Given 03/05/2024 8:06 AM CDT 20 mg simethicone (MYLICON) 66.7 mg/mL oral drops As needed, Starting on Sat02/28/24 at 1146, Intra-Op Given 02/28/2024 11:46 AM CDT 0.6 mL GI Tract sodium chloride 0.9% flush 0.5-20 mL 0.5-20 mL, intra-catheter, Every 8 hours scheduled, First dose on Sat02/20/24 at 1400, Flush volume based on line [...] based on line type, size, and protocol. sucralfate (CARAFATE) 100 mg/mL oral suspension 1 [...] inhaler 2 puff 2 puff, inhalation, Daily (respiratory support technician), First dose on Sat02/21/24 at 0900, Trelegy subs to Symbicort + Spiriva Given 03/07/2024 7:03 AM CDT 2 puffs Given 03/06/2024 8:10 AM CDT 2 puffs Given 03/05/2024 8:30 AM CDT 2 puffs voriCONAZOLE (VFEND) tablet 200 mg 200 mg, oral, 2 times daily, First dose (after last reorder) on Angy 02/20/24 at 1830, Indications: Prophylaxis, MedicalIndications:Prophylaxis, Medical Given 03/07/2024 9:02 AM CDT 200 mg Given 03/06/2024 4:33 PM CDT 200 mg Given 03/06/2024 8:38 AM CDT 200 mg documented in this encounter Discontinued Medications Medication Sig Discontinue Reason Start Date End Da te acyclovir (ZOVIRAX) 400 mg tabletIndications:AML (acute myeloid leukemia) in remission ([facility]) TAKE 1 TABLET(400 MG) BY MOUTH EVERY [...] coma, with long-term current use of insulin ([facility]) 1 Device 3 (three) times a day [...] unit capsuleIndications:AML (acute myeloid leukemia) in remission ([facility]),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[facility]),Vitamin D deficiency TAKE 1 CAPSULE BY MOUTH ONCE A WEEK DIRECTED Error 10/24/2021 02/20/2024 gabapentin (NEURONTIN) 300 mg capsuleIndications:AML (acute myeloid leukemia) in remission ([facility]) TAKE ONE CAPSULE BY MOUTH FOUR TIMES DAILY @4RP-1ZP-2BP-9PM Error 05/20/2023 02/20/2024 insulin glargine (LANTUS, BASAGLAR) 100 unit/mL (3 mL) pen for injectionIndications:Typ e 2 diabetes mellitus with hyperosmolarity 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, with long-term current use of insulin ([facility]) INJECT 15 UNITS NIGHTLY SUB-Q. Error 02/03/2021 02/20/2024 insulin lispro (HumaLOG, ADMELOG) 100 unit/mL pen for injectionIndications:Typ e 2 diabetes mellitus with hyperosmolarity 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, with long-term current use of insulin ([facility]) INJECT 5-10 UNITS TID WITH MEALS PLUS SLIDING SCALE. TDD OF 35 UNITS. 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),Ccgpm-pxhrpw-bgza disease (HCC) Take 1 tablet (10 mg total) by mouth daily Error 06/26/2022 02/20/2024 mupirocin (BACTROBAN) 2 % ointmentIndications:Loca l skin infection Apply topically 3 (three) times a day Error 05/22/2023 02/20/2024 mycophenolate mofetil (CELLCEPT) 500 mg tabletIndications:AML (acute myeloid leukemia) in remission ([facility]),Uycep-exhvqi-sacs disease (HCC) TAKE TWO TABLETS BY MOUTH TWICE DAILY @9am & 5pm Error 08/16/2023 02/20/2024 predniSONE (DELTASONE) 10 mg tabletIndications:Chroni c obstructive pulmonary disease, unspecified COPD type ([facility]) Take 40mg (4 tablets) daily for 5 [...] immediate-release capsuleIndications:AML (acute myeloid leukemia) in remission ([facility]) TAKE ONE CAPSULE BY MOUTH EVERY OTHER DAY @ 9AM (VIAL) Error 07/15/2023 02/20/2024 traMADoL (ULTRAM) 50 mg tablet Take 1 tablet (50 mg total) by mouth every 6 (six) hours Error 01/12/2022 02/20/2024 Terrie Ellipta 200-62.5-25 mcg inhalerIndications:Chron ic obstructive pulmonary disease, unspecified COPD type (HCC) INHALE 1 PUFF BY MOUTH DAILY (BULK) Error 09/16/2023 02/20/2024 voriCONAZOLE (VFEND) 200 mg tabletIndications:AML (acute myeloid leukemia) in remission ([facility]) TAKE ONE TABLET BY MOUTH TWICE DAILY @9am & 5pm Error 05/29/2023 02/20/2024 Xarelto 20 mg tabletIndications:AML (acute myeloid leukemia) in remission ([facility]) TAKE ONE TABLET BY MOUTH DAILY AT 9 AM Error 06/17/2023 02/20/2024 furosemide (LASIX) 20 mg tabletIndications:Type 2 diabetes mellitus with hyperosmolarity 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, with long-term current use of insulin ([facility]) Take 1 tablet (20 mg total) by mouth daily As needed. Error 01/15/2020 02/20/2024 rivaroxaban (Xarelto) 20 mg tabletIndications:AML (acute myeloid leukemia) in remission ([facility]) PCP to address as outpatient Stop Taking [...] day as needed for cough or congestion rivaroxaban (XARELTO) 20 mg tablet Take 1 [...] by mouth 4 (four) times a day @[id number]-9PM 4 acyclovir (ZOVIRAX) 400 mg tablet Take [...] oral, 3 times daily, First dose on Angy 02/20/24 at 1600, Indications: Prophylaxis, Medical 0807 (Given - Provider: Mary Ann Garcia)1616 (Given - Provider: Aditi Hazel, BECKI)2123 (Given - Provider: Toya Albright, BECKI) 0838 (Given - Provider: Sidra Parks, BECKI)1633 (Given - Provider: Hayley Dykes, RN)204 (Given - Provider: Bonnie Wick, RN) 0902 (Given - Provider: Ethel De Jesus, BECKI) albuterol HFA (PROVENTIL HFA,VENTOLIN HFA,PROAIR HFA) 90 mcg/actuation inhaler 2 puff 2 puff, inhalation, Every 6 hours while awake (respiratory support technician), First dose (after last modification) on Sat03/03/24 at 0900 0830 (Given - Provider: Page Bunch, SENIOR DATA WAREHOUSE DEVELOPER)1340 (Not Given - Provider: Page Bunch, SENIOR DATA WAREHOUSE DEVELOPER - Reason: Contraindicated)1950 (Not Given - Provider: Anaid Marsh, SENIOR DATA WAREHOUSE DEVELOPER - Reason: Patient/family refused - Comment: Pt wanted the albuterol neb because he said it worked better for him) 0810 (Given - Provider: Page Bunch, SENIOR DATA WAREHOUSE DEVELOPER)1351 (Given - Provider: Page Bunch, SENIOR DATA WAREHOUSE DEVELOPER)2103 (Given - Provider: Tasia Abreu, SPOUT WORKER) 0702 (Given - Provider: Pat Busby, SENIOR DATA WAREHOUSE DEVELOPER)1412 (Given - Provider: Pat Busby, SENIOR DATA WAREHOUSE DEVELOPER) atorvastatin (LIPITOR) tablet 40 mg 40 mg, oral, Daily, First dose on Sat02/21/24 at 0900 0807 (Given - Provider: Mary Ann Garcia) 0838 (Given - Provider: Sidra Parks, BECKI) 0902 (Given - Provider: Ethel De Jesus, BECKI) benzonatate (TESSALON) capsule 200 mg 200 mg, oral, 3 times daily, First dose on Sat02/22/24 at 0615, Do not crush, chew, cut, dissolve, open or otherwise manipulate tablet/capsule., Indications: Cough 0807 (Given - Provider: Mary Ann Garcia)1615 (Given - Provider: Aditi Hazel, RN)2123 (Given - Provider: Toya Albright, RN) 0837 (Given - Provider: Sidra Parks, RN)1633 (Given - Provider: Hayley Dykes, RN)2049 (Given - Provider: Bonnie Wick, RN) 0902 (Given - Provider: Ethel De Jesus, BECKI) budesonide-formoteroL (SYMBICORT) 160-4.5 mcg/actuation inhaler 2 puff(Linked Group 1) 2 puff, inhalation, 2 times daily (respiratory support technician), First dose on Sat02/20/24 at 2000, Rinse mouth with water after use. Do not swallow. 0825 (Given - Provider: Page Bunch, SENIOR DATA WAREHOUSE DEVELOPER)1950 (Given - Provider: Anaid Marsh, SENIOR DATA WAREHOUSE DEVELOPER) 0810 (Given - Provider: Page Bunch, SENIOR DATA WAREHOUSE DEVELOPER)2103 (Given - Provider: Tasia Abreu, SPOUT WORKER) 0703 (Given - Provider: Pat Busby, SENIOR DATA WAREHOUSE DEVELOPER) cefepime (MAXIPIME) 1,000 mg in sodium chloride 0.9% 100 mL IVPB 1,000 mg, intravenous, at 200 mL/hr, Administer over 30 Minutes, Every 6 hours scheduled, First dose on Sat03/03/24 at 1700, Mini-Bag Plus bag, Indications: Pneumonia, Hospital Acquired 0041 (New Bag - Provider: Denia Ruffin RN)0631 (New Bag - Provider: Denia Ruffin RN)1216 (New Bag - Provider: Mary Ann Garcia)1743 (New Bag - Provider: Aditi Hazel, RN)2322 (New Bag - Provider: Toya Albright, BECKI) 0508 (New Bag - Provider: Toya Albright, BECKI)1227 (New Bag - Provider: Sidra Parks, RN)1756 (New Bag - Provider: Hayley Dykes, RN)2329 (New Bag - Provider: Bonnie Wick, BECKI) 0523 (New Bag - Provider: Bonnie Wick, BECKI)1240 (New Bag - Provider: Ethel De Jesus, BECKI) gabapentin (NEURONTIN) capsule 300 mg 300 mg, oral, 4 times daily, First dose (after last reorder) on Angy 02/20/24 at 1745 0806 (Given - Provider: Mary Ann Garcia)1217 (Given - Provider: Mary Ann Garcia)1616 (Given - Provider: Aditi Hazel, RN)212 (Given - Provider: Toya Albright RN) 0838 (Given - Provider: Sidra Parks, BECKI)1225 (Given - Provider: Sidra Parks, BECKI)1633 (Given - Provider: Hayley Dykes, BECKI)204 (Given - Provider: Bonnie Wick, BECKI) 0902 (Given - Provider: Ethel De Jesus, BECKI)1300 (Due) guaiFENesin ER (MUCINEX) extended release tablet 1,200 mg 1,200 mg, oral, 2 times daily, First dose on 02/22/24 at 1045, Do not crush, chew, cut, dissolve, open or otherwise manipulate tablet/capsule. 0806 (Given - Provider: Mary Ann Garcia)2122 (Given - Provider: Toya Albright RN) 0837 (Given - Provider: Sidra Parks, BECKI)204 (Given - Provider: Bonnie Wick, BECKI) 0902 (Given - Provider: Ethel De Jesus, BECKI) insulin glargine (LANTUS, SEMGLEE) 100 unit/mL injection 12 Units 12 Units, subcutaneous, Nightly, First dose (after last modification) on 02/29/24 at 2100, Do not hold if NPO. Do not mix with other insulins, Indications: Diabetes Mellitus 2123 (Given - Provider: Toya Albright, BECKI) 2049 (Given - Provider: Bonnie Wick, BECKI) [...] Diabetes Mellitus 2124 (Given - Provider: Toya Albright, BECKI) 2040 (Not Given - Provider: Bonnie Wick, RN - Reason: Order parameters not met) [...] RN) 0839 (Given - Provider: Sidra Parks, BECKI)1235 (Given - Provider: Sidra Parks, BECKI)1757 (Given - Provider: Hayley Dykes, BECKI) 0830 (Not Given - Provider: Ethel De Jesus, BECKI - Reason: Order parameters not met)1241 (Given - Provider: Ethel De Jesus, BECKI) montelukast (SINGULAIR) tablet 10 mg 10 mg, oral, Nightly, First dose on Angy 02/20/24 at 2100 2122 (Given - Provider: Toya Albright, BECKI) 2048 (Given - Provider: Bonnie Wick, BECKI) mycophenolate mofetil (CELLCEPT) tablet 1,000 mg 1,000 mg, oral, 2 times daily, First dose (after last reorder) on Angy 02/20/24 at 1830, Do not crush, chew, cut, dissolve, open or otherwise manipulate tablet/capsule. 0808 (Given - Provider: Mary Ann Garcia)1616 (Given - Provider: Aditi Hazel, BECKI) 0839 (Given - Provider: Sidra Parks, BECKI)1633 (Given - Provider: Hayley Dykes, RN) 0902 (Given - Provider: Ethel De Jesus, RN) nicotine (NICODERM CQ) 21 mg patch [...] Garcia) 0842 (Medication Removed - Provider: Sidra Parks, BECKI)0844 (Medication Applied - Provider: Sidra Parks, BECKI) 0903 (Medication Applied - Provider: Ethel De Jesus, BECKI)0904 (Medication Removed - Provider: Ethel De Jesus, BECKI)1450 (Due: Medication Removed - Provider: Automatic Discharge Provider - Comment: Time automatically adjusted from order being discontinued) pantoprazole DR (PROTONIX) extended release tablet 40 mg 40 mg, oral, 2 times daily, First dose (after last modification) on 02/24/24 at 0900, For 60 days, Do not crush, chew, cut, dissolve, open or otherwise manipulate tablet/capsule., Indications: Stress Ulcer Prophylaxis 0806 (Given - Provider: Mary Ann Garcia)2122 (Given - Provider: Toya Albright, BECKI) 0838 (Given - Provider: Sidra Parks, BECKI)204 (Given - Provider: Bonnie Wick, BECKI) 0902 (Given - Provider: Ethel De Jesus, BECKI) rivaroxaban (XARELTO) tablet 20 mg 20 [...] Prevention of Recurrent Venous Thrombosis in Malignancy 0806 (Given - Provider: Mary Ann Garcia) 0838 (Given - Provider: Sidra Parks, BECKI) 09 (Given - Provider: Ethel De Jesus, RN) sodium chloride 0.9% flush 0.5-20 mL 0.5-20 mL, intra-catheter, Every 8 hours scheduled, First dose on Angy 02/20/24 at 1400, Flush volume based on line type and size. 0632 (Not Given - Provider: Denia Ruffin RN - Reason: Other)1254 (Given - Provider: Aditi Hazel, BECKI)2222 (Given - Provider: Toya Albright RN) 0508 (Given - Provider: Toya Albright RN)1231 (Given - Provider: Sidra Parks, BECKI)2049 (Given - Provider: Bonnie Wick RN) 0524 (Given - Provider: Bonine Wick RN)1400 (Due) sodium chloride 0.9% flush 5-10 mL 5-10 mL, intra-catheter, Every 12 hours scheduled, First dose on 02/29/24 at 0900, Flush volume based on line type, size, and protocol. 0809 (Given - Provider: Mary Ann Garcia)2123 (Given - Provider: Toya Albright RN) 08 (Given - Provider: Sidra Parks RN)2049 (Given - Provider: Bonnie Wick, BECKI) 09 (Given - Provider: Ethel De Jesus, BECKI - Comment: additional extension tubing present) sucralfate (CARAFATE) 100 mg/mL oral suspension 1 g 1 g, oral, 4 times daily (with meals and nightly), First dose (after last modification) on Sat02/24/24 at 1200, For 60 days 0806 (Given - Provider: Mary Ann Garcia)1217 (Given - Provider: Mary Ann Garcia)1743 (Given - Provider: Aditi Hazel, BECKI)2123 (Given - Provider: Toya Albright RN) 0839 (Given - Provider: Sidra Parks RN)1226 (Given - Provider: Sidra Parks, BECKI)1756 (Given - Provider: Hayley Dykes, BECKI)2049 (Given - Provider: Bonnie Wick, BECKI) 0902 (Given - Provider: Ethel De Jesus, RN)1240 (Given - Provider: Ethel De Jesus, RN) tacrolimus immediate-release capsule 0.5 mg 0.5 mg, oral, Every other day, First dose on Sat02/21/24 at 0900, Avoid grapefruit juice 0837 (Given - Provider: Sidra Parks RN) tiotropium bromide (SPIRIVA RESPIMAT) 2.5 mcg/actuation inhaler 2 puff(Linked Group 1) 2 puff, inhalation, Daily (respiratory support technician), First dose on Sat02/21/24 at 0900, Trelegy subs to Symbicort + Spiriva 0830 (Given - Provider: Page Bunch, SENIOR DATA WAREHOUSE DEVELOPER) 0810 (Given - Provider: Page Bunch, SENIOR DATA WAREHOUSE DEVELOPER) 0703 (Given - Provider: Pat Busby, SENIOR DATA WAREHOUSE DEVELOPER) voriCONAZOLE (VFEND) tablet 200 mg 200 mg, oral, 2 times daily, First dose (after last reorder) on Angy 02/20/24 at 1830, Indications: Prophylaxis, Medical 0808 (Given - Provider: Mary Ann Garcia)1616 (Given - Provider: Aditi Hazel RN) 0838 (Given - Provider: Sidra Parks RN)1633 (Given - Provider: Hayley Dykes, BECKI) 0902 (Given - Provider: Ethel De Jesus, BECKI) PRN Medication Order 03/05/2024 03/06/2024 03/07/2024 acetaminophen (TYLENOL) tablet 650 mg 650 mg, oral, Every 4 hours PRN, 1st line for pain, fever, fever greater than 38.3 C, Starting on Angy 02/20/24 at 1126, Indications: Fever, Pain 1745 (Given - Provider: Aditi Hazel RN)2229 (Given - Provider: Toya Albright RN) 1633 (Given - Provider: Hayley Dykes, RN) albuterol 2.5 mg/0.5 mL nebulizer solution 2.5 mg (CANCELED) 2.5 mg, nebulization, Every 4 hours PRN (respiratory support technician), wheezing, Starting on Sat03/02/24 at 2100 1338 (Given - Provider: Page Bunch, SENIOR DATA WAREHOUSE DEVELOPER) albuterol 2.5 mg/0.5 mL nebulizer solution 2.5 mg 2.5 mg, nebulization, Every 6 hours PRN (respiratory support technician), wheezing, Starting on Sat03/05/24 at 1342 1951 (Given - Provider: Anaid Marsh, SENIOR DATA WAREHOUSE DEVELOPER) Carrier Fluids for Secondary Infusion - 0.9% [...] Call MD for each episode of hypoglycemia. STONE REPAIRER STATES GLUTOSE-15 CONTAINS GLUCOSE 40% W/W (50% [...] Pain 2130 (Given - Provider: Toya Albright, BECKI) 2102 (Given - Provider: Bonnie Wick RN) ondansetron (ZOFRAN) injection 4 mg(Linked Group [...] at 1126, Indications: Nausea and Vomiting peg 080-ugkxyuknyear-sokytiap (ARTIFICAL TEARS) 1-0.2-0.2 % ophthalmic solution 1 drop 1 drop, each eye, 3 times daily PRN, dry eyes, Starting on 02/29/24 at 1227 ramelteon (ROZEREM) tablet 8 mg 8 mg, oral, Nightly PRN, sleep, Starting on Angy 02/20/24 at 1126, Indications: Sleep-Onset Insomnia 2126 (Given - Provider: Toya Albright, BECKI) 2049 (Given - Provider: Bonnie Wick, BECKI) sodium chloride 0.9% flush 0.5-20 mL [...] Override Pull (COMPLETED) Starting on Sat03/05/24 at 1337, For 1 dose, Created by cabinet override 1517 (Given by Other - Provider: Aditi Hazel RN) sodium chloride 0.9 % nebulizer solution - ADS Override Pull (COMPLETED) Starting on Sat03/05/24 at 1949, For 1 dose, Created by cabinet override 195 (Given - Provider: Anaid Marsh SENIOR DATA WAREHOUSE DEVELOPER) Linked Groups Order Group 1: budesonide-formoteroL (SYMBICORT) 160-4.5 mcg/actuation inhaler 2 puffJump to med 2 puff, inhalation, 2 times daily (respiratory support technician), First dose on Sat02/20/24 at 2000, Rinse mouth with water after use. Do not swallow. And tiotropium bromide (SPIRIVA RESPIMAT) 2.5 mcg/actuation inhaler 2 puffJump to med 2 puff, inhalation, Daily (respiratory support technician), First dose on Sat02/21/24 at 0900, Trelegy [...] Call MD for each episode of hypoglycemia. STONE REPAIRER STATES GLUTOSE-15 CONTAINS GLUCOSE 40% W/W (50% [...] 6 hours PRN, nausea, vomiting, Starting on Sat02/20/24 at 1126, Indications: Nausea and Vomiting Or ondansetron (ZOFRAN) injection 4 mgJump to med 4 mg, intravenous, Administer over 2 Minutes, Every 6 hours PRN, nausea, vomiting, if not tolerating PO, Starting on Sat02/20/24 at 1126, Indications: Nausea and Vomiting documented in this encounter Orders Medications Ordered That Girma ht Not Have Been Administered Count Last Ordered Date First Ordered Date albuterol 2.5 mg/0.5 mL nebu lizer solution 2.5 mg 4 03/05/2024 02/20/2024 sodium chloride 0.9 % nebuli zer solution - ADS Override Pull 34 03/05/2024 02/20/2024 cefepime (MAXIPIME) 1,000 mg in sodium chloride 0.9% 100 mL IVPB 1 03/03/2024 cefepime (MAXIPIME) 2,000 mg in sodium chloride 0.9% 100 mL IVPB 1 03/03/2024 albuterol HFA (PROVENTIL HFA ,VENTOLIN HFA,PROAIR HFA) 90 mcg/actuation inhaler 2 puff 3 03/02/2024 02/20/2024 lidocaine (XYLOCAINE) 10 mg/ mL (1 %) injection 100 mg 1 03/02/2024 lidocaine-EPINEPHrine (XYLOC NEVIN with EPI) 1 %-1:100,000 injection 10 mL 1 03/02/2024 insulin lispro (HumaLOG, ADM ELOG) 100 unit/mL injection 8 Units 1 03/01/2024 insulin glargine (LANTUS, SE MGLEE) 100 unit/mL injection 12 Units 1 02/29/2024 insulin glargine (LANTUS, SE MGLEE) 100 unit/mL injection 15 Units 2 02/29/2024 02/22/2024 insulin lispro (HumaLOG, ADM ELOG) 100 unit/mL injection 0-4 Units 2 02/29/2024 02/21/2024 insulin lispro (HumaLOG, ADM ELOG) 100 unit/mL injection 0-5 Units 5 02/29/2024 02/20/2024 lidocaine (PF) (XYLOCAINE) 1 0 mg/mL (1 %) preservative free injection 10-20 mg 1 02/29/2024 peg 433-dsmkuzqvsmxr-aecpvsw n (ARTIFICAL TEARS) 1-0.2-0.2 % ophthalmic solution 1 drop 1 02/29/2024 sodium chloride 0.9% flush 5-10 mL 1 2023 sodium chloride 0.9% flush 5-20 mL 1 2023 insulin glargine (LANTUS, SE MGLEE) 100 unit/mL injection 18 Units 1 02/28/2024 sodium chloride 0.9% flush 0.5-20 mL 4 02/1602/20/2024 sodium chloride 0.9% infusion 2 02/28/2024 02/20/2024 insulin lispro (HumaLOG, ADM ELOG) 100 unit/mL injection 0-10 Units 1 02/27/2024 insulin glargine (LANTUS, SE MGLEE) 100 unit/mL injection 22 Units 2 02/26/2024 02/22/2024 insulin lispro (HumaLOG, ADM ELOG) 100 unit/mL injection 4 Units 1 02/26/2024 perflutren lipid (DEFINITY) 1.5 mL in sodium chloride 0.9% 10 mL syringe 1 02/25/2024 ceFAZolin (ANCEF) 2,000 mg/2 0 mL in sterile water (premix) 2,000 mg 1 02/24/2024 insulin glargine (LANTUS, SE MGLEE) 100 unit/mL injection 26 Units 1 02/24/2024 insulin lispro (HumaLOG, ADM ELOG) 100 unit/mL injection 5 Units 2 02/24/2024 02/23/2024 loperamide (IMODIUM) capsule 2 mg 1 024 LORazepam (ATIVAN) tablet 0.5 mg 1 02/24/[address] (PROTONIX) e xtended release tablet 40 mg 2 02/24/2024 predniSONE (DELTASONE) tablet 10 mg 1 02/23 predniSONE (DELTASONE) tablet 20 mg 1 02/23 predniSONE (DELTASONE) tablet 30 mg 02/23 predniSONE (DELTASONE) tablet 40 mg 02/23 predniSONE (DELTASONE) tablet 5 mg 1 2023 sucralfate (CARAFATE) 100 mg /mL oral suspension 1 g 2 02/24/2024 02/20/2024 vancomycin 1,000 mg/250 mL i n sodium chloride 0.9% (premix) 1,000 mg 1 02/24/2024 vancomycin 1500 mg/250 mL in sodium chloride 0.9% (premix) 1,500 mg 1 02/24/2024 azithromycin (ZITHROMAX) 500 mg/250 mL in sodium chloride 0.9% (premix) 500 mg 2 02/23/202404/2024 benzonatate (TESSALON) capsule 200 mg 1 04/2024 cefTRIAXone (ROCEPHIN) 2,000 mg/20 mL in sterile water (premix) 2,000 mg 1 02/22/2024 guaiFENesin ER (MUCINEX) ext ended release tablet 1,200 mg 1 02/22/2024 insulin glargine (LANTUS, SE MGLEE) 100 unit/mL injection 5 Units 1 02/22/2024 insulin lispro (HumaLOG, ADM ELOG) 100 unit/mL injection 6 Units 1 02/22/2024 methylPREDNISolone sodium pedraza ccinate (SOLU-medrol) preservative free injection 40 mg 1 02/22/2024 nicotine (NICODERM CQ) 21 mg patch 24 hour 1 patch 1 02/22/2024 dextrose (D10W) 10% bolus 250 mL 2 02/21/20 24 02/20/2024 dextrose (GLUTOSE) 40 % gel 15 g 2 02/21/20 24 02/20/2024 glucagon injection 1 mg 2 02/21/2024 04/0 02/2024 insulin glargine (LANTUS, [facility]) 100 unit/mL injection 10 Units 1 02/21/2024 insulin lispro (HumaLOG, [facility]) 100 unit/mL injection 3 Units 1 02/21/2024 acetaminophen (TYLENOL) tablet 650 mg 1 02/2024 acyclovir (ZOVIRAX) capsule 400 mg 1 2023 albuterol 2.5 mg /3 mL (0.08 3 %) nebulizer solution 2.5 mg 1 02/20/2024 aspirin enteric coated tablet 81 mg 1 02/19 atorvastatin (LIPITOR) tablet 40 mg 1 02/19 budesonide-formoteroL (SYMBI GIANNA) 160-4.5 mcg/actuation inhaler 2 puff 1 02/20/2024 Carrier Fluids for Secondary Infusion - 0.9% Sodium Chloride 1 02/20/2024 diphenhydrAMINE (BENADRYL) 5 0 mg/mL injection 12.5 mg 1 02/20/2024 docusate sodium (COLACE) capsule 100 mg 1 0 02/20/2024 fentaNYL (SUBLIMAZE) preserv ative free injection 25 mcg 1 02/20/2024 varjimbxanv-yttofopyf-ftyqli er (TRELEGY ELLIPTA) 200-62.5-25 mcg inhaler 1 puff 1 02/20/2024 gabapentin (NEURONTIN) capsule 300 mg 2 02/2024 hydrALAZINE (APRESOLINE) injection 5 mg 1 0 02/20/2024 hydrocortisone (Solu-CORTEF) preservative free injection 100 mg 1 02/20/2024 HYDROmorphone (DILAUDID) injection 0.2 mg 1 02/20/2024 HYDROmorphone (DILAUDID) injection 0.4 mg 1 02/20/2024 labetaloL (NORMODYNE,TRANDAT E) injection 5 mg 1 02/20/2024 Lactated Ringer's (LR) infusion 3 meperidine (DEMEROL) preserv ative free injection 25 mg 1 02/20/2024 metoclopramide (REGLAN) 5 mg /mL injection 10 mg 1 02/20/2024 montelukast (SINGULAIR) tablet 10 mg 1 02/2024 morphine injection 2 mg 1 02/20/2024 mycophenolate mofetil (CELLC EPT) tablet 1,000 mg 2 02/20/2024 naloxone (NARCAN) 0.4 mg/mL injection 0.04-0.4 mg 1 02/20/2024 ondansetron (ZOFRAN) injection 4 mg 2 02/19 ondansetron ODT (ZOFRAN-ODT) disintegrating tablet 4 mg 1 02/20/2024 polyethylene glycol (MIRALAX) packet 17 g 1 02/20/2024 ramelteon (ROZEREM) tablet 8 mg 1 rivaroxaban (XARELTO) tablet 20 mg 1 2023 tacrolimus immediate-release capsule 0.5 mg 1 02/20/2024 tiotropium bromide (SPIRIVA RESPIMAT) 2.5 mcg/actuation inhaler 2 puff 1 02/20/2024 traMADoL (ULTRAM) tablet 50 mg 1 02/20/2024 voriCONAZOLE (VFEND) tablet 200 mg 2 2023 Lab Orders Without Results Count Last [...] 2 03/02 VERIFY INFORMED CONSENT 3 02/28/2024 0402/2024 WEIGH PATIENT 1 02/20/2024 Consult Count Last [...] documented as of this encounter Care Teams Loan Review Officer Relationship Specialty Start Date End Date Gama Lindsay DO PCP - General Internal Medicine 02/02/21 Josué Del Valle MD PhD Medical Oncologist/Electro Mechanical Designer Medical Oncology 08/26/19 Cal Carranza DO [address] [place] [address] Clinical Psychologist Internal Medicine 06/12/23 Halie Khan MD [address] [place] [address] Distribution Field Technician Critical Care Med 06/12/23 documented as of this encounter
--- OUTSIDE RECORDS SUMMARY | 2024-11-22 10:52 | XMS_ITS | Encounter Summary ---
Author Organization [facility] Address [address] [place] [address] Phone Care Team Providers Care Activity Coordinator Name Role Phone Josué Del Valle MD PhD Unavailable [phone] Kirt Lindsay DO Primary Care Provider [phone] Tay Charlton MD Unavailable [phone] Halie Khan MD Unavailable [phone] Apple CreekAnt MD Unavailable [phone] Reason for Visit * Episode Based Medications (Routine) - Closed Specialty Diagnoses / Procedures Referred By Contac t Referred To Contact Diagnoses 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HCC) Other osteoporosis without current pathological fracture Ave Montejo MD [address] [place] [address] Phone: tel: fax: [facility] Infusion Therapy [address] [place] [address] [place] [address] Phone: tel: fax: Referral ID Status Reason Start Date Expiration Date Visits Re quested Visits Authorized [id number] Closed 03/13/2023 03/13/2024 2 2 Encounter Details Date Type Department Care Team (Late st Contact Info) Description 03/25/2023 12:45 PM CDT Infusion [facility] Infusion Therapy [address] [place] [address] [place] [address] Other osteoporosis without current pathological fracture (Primary Dx); 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HCC) Social History Tobacco Use Types Packs/Day Years Used Date Smoking Tobacco: Some Days Cigarettes 0.5 40 Started: 1985 Smokeless Tobacco: Never Comments:pt states tried to quit AUDIT-C Answer Date Recorded Q1: How often do you have a drink containing alc ohol? 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 Labs drawn per md order. Denied any dental issues or mouth pain. No dental procedures done in the past week and has none planned for the future. Confirmed taking vit d and calcium supplements as prescribed and has been hydrating well prior to infusion and will continue to do so the next week. No s/s of adverse reaction. VSS. No follow up appt needed at this time documented in this encounter Plan of Treatment Not on file documented as of this encounter Procedures Procedure Name Priority Date/Time Associated Diagnosis Comments BASIC METABOLIC PANEL Routine 03/25/2023 12:40 PM CDT Other osteoporosis without current pathological fracture 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HCC) documented in this encounter Results * (ABNORMAL) Basic metabolic panel (03/25/2023 12:40 PM CDT) Glucose 126(H) 64 - 99 mg/dL [facility] Comment: NONFASTING GLUCOSE RANGE = 64-199 mg/dL FASTING GLUCOSE 64 - 99 = NORMAL FASTING GLUCOSE 100 - 125 = IMPAIRED FASTING GLUCOSE FASTING GLUCOSE >=126 = PROVISIONAL DIAGNOSIS OF DIABETES Potassium 4.7 3.3 - 5.1 mmol/L [facility] Creatinine 0.84 0.70 - 1.30 mg/dL [facility] BUN 15 7 - 23 mg/dL [facility] Sodium 137 135 - 145 mmol/L [facility] Chloride 99 95 - 107 mmol/L [facility] CO2 Content 27 21 - 29 mmol/L [facility] Calcium 9.7 8.6 - 10.3 mg/dL [facility] eGFR >90.0 >60.0 mL/min/1.7 3 m2 [facility] Blood 03/25/2023 12:4 0 PM CDT 03/25/2023 2:[address] Montejo MD LAB BLOOD ORDERABLES Final Resu lt [facility] documented in this encounter Visit Diagnoses Diagnosis Other osteoporosis without current pathological fracture- Primary 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HCC) documented in this encounter Administered Medications Inactive Administered Medications - up to 3 most recent administrations Medication Order MAR Action Action Date Dose Rate Site zoledronic algy-nsmzurzS-ikdng (RECLAST) 5 mg/100 mL premix 5 mg 5 mg, intravenous, at 300 mL/hr, Administer over 20 Minutes, Once, On Sat03/25/23 at 1315, For 1 doseIndications:Other osteoporosis without current pathological fracture,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HCC) New Bag 03/25/2023 12:42 PM CDT 5 mg 300 mL/hr documented in this encounter Orders Medications Ordered That Girma ht Not Have Been Administered Count Last Ordered Date First Ordered Date zoledronic abrb-orqdrghA-gug er (RECLAST) 5 mg/100 mL premix 5 mg 1 03/25/2023 documented in this encounter Care Teams Activity Coordinator Relationship Specialty Start Date End Date Kirt Lindsay, PCP - General Internal Medicine 02/02/21 Josué Del Valle MD PhD Medical Oncologist/Dye Maker Medical Oncology 08/26/19 Tay Charlton MD Consulting Physician Gastroenterology 12/03/21 06/11/23 Halie Khan MD [address] [address] Consulting Physician Pulmonary Disease 12/12/21 3 Ant Starks MD [address] [address] Consulting Physician Transplant Hepatology 01/12/22 documented as of this encounter
--- OUTSIDE RECORDS SUMMARY | 2024-11-22 10:52 | XMS_ITS | Encounter Summary ---
Author Organization [facility] Address [address] [place] [address] Phone Care Team Providers Care Compliance Mgr Name Role Phone Josué Del Valle MD PhD Unavailable [phone] Kirt Lindsay DO Primary Care Provider [phone] Tay Charlton MD Unavailable [phone] Halie Khan MD Unavailable [phone] Ant Starks MD Unavailable [phone] Encounter Details Date Type Department Care Team (Late st Contact Info) Description 03/25/2023 1:50 PM CDT Lab [facility] Endocrinology Metabolism and Lipid [address] [facility] [address] [place] [address] [place] [address] Other osteoporosis without current pathological fracture; 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HCC) Social [...] on file 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 Gender Identity Not on file Sexual Orientation Not on file documented as of this encounter Plan of Treatment Not on file documented as of this encounter Visit Diagnoses Diagnosis Other osteoporosis without current pathological fracture 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HCC) documented in this encounter Care Teams Compliance Mgr Relationship Specialty Start Date End Date Kirt Lindsay DO PCP - General Internal Medicine 02/02/21 Josué Del Valle MD PhD Medical Oncologist/Associate Director Of Sales Medical Oncology 08/26/19 Tay Charlton MD Consulting Physician Gastroenterology 12/03/21 06/11/23 Halie Khan MD [address] [place] [address] Consulting Physician Pulmonary Disease 12/12/21 3 Ant Starks MD [address] [place] [address] Consulting Physician Transplant Hepatology 01/12/22 documented as of this encounter
--- OUTSIDE RECORDS SUMMARY | 2024-11-22 10:52 | XMS_ITS | Encounter Summary ---
Author Organization [facility] Address [address] [place] [address] Phone Care Team Providers Care Mathematician Research Name Role Phone Josué Del Valle MD PhD Unavailable Kirt Lindsay DO Primary Care Provider [phone] Tay Charlton MD Unavailable [phone] Halie Khan MD Unavailable [phone] StarksAnt goldman MD Unavailable [phone] Encounter Details Date Type Department Care Team (Late st Contact Info) Description 06/07/2023 Orders Only [facility] Bone Marrow Transplant [address] [facility] Advanced Medicine 7th Floor, [place] [address] Josué Del Valle MD PhD [address] DIV IM BONE MARROW TRANSPLANT, [address] [place] [address] Chronic obstructive pulmonary disease, unspecified COPD type (HCC) Social History Tobacco Use Types Packs/Day [...] on file 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 Gender Identity Not on file Sexual Orientation Not on file documented as of this encounter Ordered Prescriptions Prescription Sig Dispense Quantity Refills Last Filled Start Date End Date albuterol HFA (PROVENTIL HFA,VENTOLIN HFA,PROAIR HFA) 90 mcg/actuation inhalerIndications :Chronic obstructive pulmonary disease, unspecified COPD type (HCC) Inhale 2 puffs every 6 (six) hours as needed for wheezing 1 each 3 06/07/2023 3 documented in this encounter Plan of Treatment Not on file documented as of this encounter Visit Diagnoses Diagnosis Chronic obstructive pulmonary disease, unspecified COPD type (HCC) documented in this encounter Discontinued Medications Medication Sig Discontinue Reason Start Date End Da te albuterol HFA (PROVENTIL HFA,VENTOLIN HFA,PROAIR HFA) 90 mcg/actuation inhalerIndications:Chron ic obstructive pulmonary disease, unspecified COPD type (HCC) Inhale 2 puffs every 6 (six) hours as needed for wheezing Reorder 10/22/2022 06/07/2023 documented as of this encounter Care Teams Mathematician Research Relationship Specialty Start Date End Date Kirt Lindsay DO PCP - General Internal Medicine 02/02/21 Josué Del Valle MD PhD Medical Oncologist/Pharmacy Ancillary Medical Oncology 08/26/19 Tay Charlton MD Consulting Physician Gastroenterology 12/03/21 06/11/23 Halie Khan MD [address] [facility] [address] [address] Consulting Physician Pulmonary Disease 12/12/21 3 Ant Starks MD [address] [address] Consulting Physician Transplant Hepatology 01/12/22 documented as of this encounter
--- OUTSIDE RECORDS SUMMARY | 2024-11-22 10:52 | XMS_ITS | Encounter Summary ---
Author Organization [facility] Address [address] [place] [address] Phone Care Team Providers Care Insulation Foreman Name Role Phone Josué Del Valle MD PhD Unavailable Kirt Lindsay DO Primary Care Provider [phone] Tay Charlton MD Unavailable [phone] Halie Khan MD Unavailable [phone] StarksAnt goldman MD Unavailable [phone] Encounter Details Date Type Department Care Team (Late st Contact Info) Description 03/25/2023 Orders Only [facility] Bone Marrow Transplant [address] [facility] Advanced Medicine 7th Floor, [place] [address] Josué Del Valle MD PhD [address] DIV IM BONE MARROW TRANSPLANT, [address] [place] [address] 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) Social History Tobacco Use Types Packs/Day [...] file 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 Gender Identity Not on file Sexual Orientation Not on file documented as of this encounter Ordered Prescriptions Prescription Sig Dispense Quantity Refills Last Filled Start Date End Date gabapentin (NEURONTIN) 300 mg capsuleIndications :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) Take 1 capsule (300 mg total) by mouth 4 (four) times a day 120 capsule 1 03/25/2023 3 documented in this encounter Plan of Treatment Not on file documented as of this encounter Visit Diagnoses Diagnosis 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) documented in this encounter Discontinued Medications Medication Sig Discontinue Reason Start Date End Da te gabapentin (NEURONTIN) 300 mg capsuleIndications: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) TAKE 1 CAPSULE(300 MG) BY MOUTH FOUR TIMES DAILY Reorder 02/01/2023 03/25/2023 documented as of this encounter Care Teams Insulation Foreman Relationship Specialty Start Date End Date Kirt Lindsay DO PCP - General Internal Medicine 02/02/21 Josué Del Valle MD PhD Medical Oncologist/Kennel Assistant Medical Oncology 08/26/19 Tay Charlton MD Consulting Physician Gastroenterology 12/03/21 06/11/23 Halie Khan MD [address] [address] Consulting Physician Pulmonary Disease 12/12/21 3 Ant Starks MD [address] [facility] [address] [place] [address] Consulting Physician Transplant Hepatology 01/12/22 documented as of this encounter
--- OUTSIDE RECORDS SUMMARY | 2024-11-22 10:52 | XMS_ITS | Encounter Summary ---
Author Organization [facility] Address [address] [place] [address] Phone Care Team Providers Care Utility Accounts Director Name Role Phone Josué Del Valle MD PhD Unavailable [phone] Kirt Lindsay DO Primary Care Provider [phone] Cal Carranza DO Unavailable [phone] Halie Khan MD Unavailable [phone] Reason for Visit * Oncology (Routine) - Closed Specialty Diagnoses / Procedures Referred By Contac t Referred To Contact Medical Oncology / Blood and Marrow Transplant Diagnoses 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) [facility] Scheduling [address] [place] [address] Phone: tel: Josué Del Valle MD PhD [address] DIV IM BONE MARROW TRANSPLANT, [address] [place] [address] Phone: tel: fax: Referral ID Status Reason Start Date Expiration Date V isits Requested Visits Authorized [id number] Closed Specialty Services Required 06/05/2021 11/17/2023 99 99 Encounter Details Date Type Department Care Team (Late st Contact Info) Description 06/12/2023 10:15 AM CDT Lab [facility] Oncology [address] [facility] 7th [place] [address] 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) [...] on file 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 Gender Identity Not on file Sexual Orientation Not on file documented as of this encounter Plan of Treatment Not on file documented as of this encounter Visit Diagnoses Diagnosis 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) documented in this encounter Orders Appointment Requests Count Last Ordered Date Fi rst Ordered Date ONCBCN LAB APPOINTMENT 1 06/12/2023 documented in this encounter Care Teams Utility Accounts Director Relationship Specialty Start Date End Date Kirt Lindsay DO PCP - General Internal Medicine 02/02/21 Josué Del Valle MD PhD Medical Oncologist/Cougar Hunter Medical Oncology 08/26/19 Cal Carranza DO [address] [address] Enrollment Nurse Internal Medicine 06/12/23 Halie Khan MD [address] [address] [place] Pinner Critical Care Med 06/12/23 documented as of this encounter
--- OUTSIDE RECORDS SUMMARY | 2024-11-22 10:52 | XMS_ITS | Encounter Summary ---
Author Organization [facility] Address [address] [place] [address] Phone Care Team Providers Care Acid Adjuster Name Role Phone Josué Del Valle MD PhD Unavailable [phone] Kirt Lindsay DO Primary Care Provider [phone] Cal Carranza DO Unavailable [phone] Halie Khan MD Unavailable [phone] Encounter Details Date Type Department Care Team (Late st Contact Info) Description 08/06/2023 Telephone [facility] Oncology [address] [facility] Advanced [facility] 7th [place] [address] [place] [address] Irina Conrad Social History Tobacco [...] on file 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 Instructed in VM topush fluids rest and keep an eye on tempeture. Left call back number to let me know if he would like to set up time tomorrow to be seen and get fluids with [facility]. * Telephone Encounter - Josué Rice RN - 08/06/2023 12:14 PM CDT Called and talked with patient, states he feels like heart is going a mile a min, dizziness walkingaround today. Vomitted twice yesterday says he is able to keep fluids down and is eating chicken noodle soup, no fever or chills. Will call back in 20mins to see if he is able to get ride then call to [facility] to see if we can have him evaluated and get some fluids today. documented in this encounter Plan of Treatment Not on file documented as of this encounter Visit Diagnoses Not on filedocumented in this encounter Care Teams Acid Adjuster Relationship Specialty Start Date End Date Kirt Lindsay DO PCP - General Internal Medicine 02/02/21 Josué Del Valle MD PhD Medical Oncologist/Manager Client Medical Oncology 08/26/19 Cal Carranza DO [address] [address] Tile And Marble Setter Internal Medicine 06/12/23 Halie Khan MD [address] [place] [address] Pe Teacher Critical Care Med 06/12/23 documented as of this encounter
--- OUTSIDE RECORDS SUMMARY | 2024-11-22 10:52 | XMS_ITS | Encounter Summary ---
Author Organization [facility] Address [address] [place] [address] Phone Care Team Providers Care Software Educator Name Role Phone Josué Del Valle MD PhD Unavailable [phone] Kirt Lindsay DO Primary Care Provider [phone] Cal Carranza DO Unavailable [phone] Halie Khan MD Unavailable [phone] Reason for Visit * Reason Onset Date Comments SWO 10/16/2023 CGM and Supplies -Free Style Evaristo 2 Encounter Details Date Type Department Care Team (Late st Contact Info) Description 10/16/[address] 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 See Media. To: Recipient at [id number] Subject: LEONARD Jones Result: The transmission was successful. Explanation: All Pages Ok Pages Sent: 2 Connect Time: 1 minutes, 45 seconds Transmit Time: 10/16/2023 09:52 Transfer Rate: [id number] Status Code: 0000 Retry Count: 0 Job Id: [id number] Unique Id: [id number] Fax Line: 4 Fax Junior Systems Administrator: [id number] OR CHIROPRACTIC documented in this encounter Plan of Treatment Not on file documented as of this encounter Visit Diagnoses Not on filedocumented in this encounter Care Teams Software Educator Relationship Specialty Start Date End Date Kirt Lindsay DO PCP - General Internal Medicine 02/02/21 Josué Del Valle MD PhD Medical Oncologist/Bunch Breaker Medical Oncology 08/26/19 Cal Carranza DO [address] [place] [address] Wastewater Operator Internal Medicine 06/12/23 Halie Khan MD [address] [place], [place] [id number] Junior Linux Administrator Critical Care Med 06/12/23 documented as of this encounter
--- OUTSIDE RECORDS SUMMARY | 2024-11-22 10:52 | XMS_ITS | Encounter Summary ---
Author Organization [facility] Address [address] [facility] [address] [place] [address] Phone Care Team Providers Care Photoengraving Supervisor Name Role Phone Josué Del Valle MD PhD Unavailable [phone] Kirt Lindsay DO Primary Care Provider [phone] Cal Carranza DO Unavailable [phone] Halie Khan MD Unavailable [phone] Encounter Details Date Type Department Care Team (Latest Contact Info) Description 02/10/2024 Orders Only [facility] Endocrinology Metabolism and Lipid [address] [facility] Advanced Medicine 13th [place] [address] [place] [address] Bela Orellana, BECKI Type 2 diabetes mellitus with hyperosmolarity 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, with long-term current use of insulin (CMS/HCC) (HCC) (Primary Dx); Type 2 diabetes mellitus without complication, with long-term current use of insulin (CMS/HCC) (HCC) Social History Tobacco Use Types Packs/Day Years Used Date Smoking Tobacco: Some Days Cigarettes 0.5 40 Started: 1984 Smokeless Tobacco: Never Comments:pt states tried to quit AUDIT-C Answer Date Recorded Q1: How often do you have a drink containing alc ohol? 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 Gender Identity Not on file Sexual Orientation Not on file documented as of this encounter Ordered Prescriptions Prescription Sig Dispense Quantity Refills Last Filled Start Date End Date flash glucose sensor (FreeStyle Evaristo 2 Sensor) kitIndications:Type 2 diabetes mellitus with hyperosmolarity 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, with long-term current use of insulin ([facility]) Change sensor every 14 days 2 kit 02/10/2024 documented in this encounter Plan of Treatment Not on file documented as of this encounter Visit Diagnoses Diagnosis Type 2 diabetes mellitus with hyperosmolarity 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, with long-term current use of insulin ([facility])- Primary Type 2 diabetes mellitus without complication, with long-term current use of insulin ([facility]/HCC) ([facility]) documented in this encounter Discontinued Medications Medication Sig Discontinue Reason Start Date End Da te flash glucose sensor (FreeStyle Evaristo 2 Sensor) kit CHANGE SENSOR EVERY 14 DAYS Reorder 12/20/2023 02/10/2024 documented as of this encounter Care Teams Photoengraving Supervisor Relationship Specialty Start Date End Date Kirt Lindsay DO PCP - General Internal Medicine 02/02/21 Josué Del Valle MD PhD Medical Oncologist/Accounts Payable Manager Medical Oncology 08/26/19 Cal Carranza DO [address] [address] Business Teacher Internal Medicine 06/12/23 Halie Khan MD [address] [address] Mainframe Consultant Critical Care Med 06/12/23 documented as of this encounter
--- OUTSIDE RECORDS SUMMARY | 2024-11-22 10:52 | XMS_ITS | Encounter Summary ---
Author Organization [facility] Address [address] [place] [address] Phone Care Team Providers Care Scleroscope Tester Name Role Phone Josué Del Valle MD PhD Unavailable [phone] Kirt Lindsay DO Primary Care Provider [phone] Cal Carranza DO Unavailable [phone] Halie Khan MD Unavailable [phone] Reason for Visit * Reason Onset Date Comments sensor refill 12/19/2023 Encounter Details Date Type Department Care Team (Late st Contact Info) Description 12/19/2023 Telephone [facility] Endocrinology Metabolism and Lipid [address] [place] [address] [place] [address] Bela Orellana, BECKI sensor refill Social History Tobacco Use Types Packs/Day Years [...] on file 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 Called patient back, somehow a different pharmacy had his pierce sensor prescription but he says he called and sorted it out. Our end shows the correct, current script at the correct pharmacy, and a prior authorization request. Also confirmed patient set up transport for his appointment at 10 am on 12/23. ICAL NURSE EDUCATOR * Telephone Encounter - Bela Orellana RN - 12/19/2023 2:22 PM CLINICAL NURSE EDUCATOR Patient called needing freestyle pierce sensor refills. Current order is monthly supplies for a year, so I let him know he should be able to refill his sensors through [facility] until February. Scheduledhim for a follow up appointment on Saturday 12/23 while on the phone, he will contact [employer] to [place] and let us know if he has any issues with the refills or getting to the appointment. ICAL NURSE EDUCATOR documented in this encounter Plan of Treatment Not on file documented as of this encounter Visit Diagnoses Not on filedocumented in this encounter Care Teams Scleroscope Tester Relationship Specialty Start Date End Date Kirt Lindsay DO PCP - General Internal Medicine 02/02/21 Joséu Del Valle MD PhD Medical Oncologist/Bag Inspector Medical Oncology 08/26/19 Cal Carranza DO [address] [place] [address] Roustabout Hand Internal Medicine 06/12/23 Halie Khan MD [address] [place], [place] [address] Frame Hand Critical Care Med 06/12/23 documented as of this encounter
--- OUTSIDE RECORDS SUMMARY | 2024-11-22 10:52 | XMS_ITS | Encounter Summary ---
Author Organization [facility] Address [address] [place] [address] Phone Care Team Providers Care Dough Mixer Operator Name Role Phone Josué Del Valle MD PhD Unavailable [phone] Kirt Lindsay DO Primary Care Provider [phone] Tay Charlton MD Unavailable [phone] Halie Khan MD Unavailable [phone] StarksAnt goldman MD Unavailable [phone] Encounter Details Date Type Department Care Team (Late st Contact Info) Description 05/09/2023 Telephone [facility] Bone Marrow Transplant [address] 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 documented in this encounter Plan of Treatment Not on file documented as of this encounter Visit Diagnoses Not on filedocumented in this encounter Care Teams Dough Mixer Operator Relationship Specialty Start Date End Date Kirt Lindsay DO PCP - General Internal Medicine 02/02/21 Josué Del Valle MD PhD Medical Oncologist/Manager Customer Medical Oncology 08/26/19 Tay Charlton MD Consulting Physician Gastroenterology 12/03/21 06/11/23 Halie Khan MD [address] [address] Consulting Physician Pulmonary Disease 12/12/21 3 Ant Starks MD [address] [address] Consulting Physician Transplant Hepatology 01/12/22 documented as of this encounter
--- OUTSIDE RECORDS SUMMARY | 2024-11-22 10:52 | XMS_ITS | Encounter Summary ---
Author Organization [facility] Address [address] [place] [address] Phone Care Team Providers Care Ladies Attendant Name Role Phone Josué Del Valle MD PhD Unavailable [phone] Kirt Lindsay DO Primary Care Provider [phone] Cal Carranza DO Unavailable [phone] Halie Khan MD Unavailable [phone] Encounter Details Date Type Department Care Team (Late st Contact Info) Description 08/06/2023 Telephone [facility] Bone Marrow Transplant [address] 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 documented in this encounter Plan of Treatment Not on file documented as of this encounter Visit Diagnoses Not on filedocumented in this encounter Care Teams Ladies Attendant Relationship Specialty Start Date End Date Kirt Lindsay DO PCP - General Internal Medicine 02/02/21 Josué Del Valle MD PhD Medical Oncologist/Sas Sql Developer Medical Oncology 08/26/19 Cal Carranza DO [address] [place], [place] [address] Division Controller Internal Medicine 06/12/23 Halie Khan MD [address] [place], [place] [address] Patient Financial Services Coordinator Critical Care Med 06/12/23 documented as of this encounter
--- OUTSIDE RECORDS SUMMARY | 2024-11-22 10:52 | XMS_ITS | Encounter Summary ---
Author Organization [facility] Healthcare Address [address] [place] [address] Care Team Providers Care Pin Sticker Name Role Phone Josué Del Valle MD PhD Unavailable [phone] Kirt Lindsay DO Primary Care Provider [phone] Cal Carranza DO Unavailable [phone] Halie Khan MD Unavailable [phone] Encounter Details Date Type Department Care Team (Latest Contact Info) Description 06/12/2023 1:50 PM CDT - 06/12/2023 11:59 PM CDT Hospital Encounter [facility] [address] [place] [phone] 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) Discharge Disposition: Discharge to [...] on file 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 Gender Identity Not on file Sexual Orientation Not on file documented as of this encounter Medications at Time of Discharge cholecalciferol (VITAMIN D-3) 25 mcg (1,000 unit) tablet Take 2 tablets (2,000 Units total) by mouth every morning 11/13/20 21 flash glucose scanning reader ([employer] Evaristo 2 Lindsay) [facility] [place] Use to test blood glucose continuously 1 each 1 03/17/20 23 omega-3 fatty acids (LOVAZA) 1 gram capsule Take 1 capsule (1 g total) by mouth daily 02/10/20 21 oxygen Administer 2 L/min into each nostril nightly Nightly and PRN levoFLOXacin (LEVAQUIN) 500 mg tabletIndications:COPD Exacerbation Take 1 tablet (500 mg total) by mouth daily for 10 days 10 tablet 06/12/20 23 023 acetaminophen (TYLENOL) 500 mg tablet Take 2 tablets (1,000 mg total) by mouth every 6 (six) hours as needed for pain 30 tablet 01/12/20 22 024 acyclovir (ZOVIRAX) 400 mg tabletIndications:AML (acute myeloid leukemia) in remission ([facility]) TAKE 1 TABLET(400 MG) BY MOUTH EVERY 8 HOURS 270 tablet 1 06/11/20 22 024 albuterol HFA (PROVENTIL HFA,VENTOLIN HFA,PROAIR HFA) 90 mcg/actuation inhalerIndications:Chron ic obstructive pulmonary disease, unspecified COPD type ([facility]) Inhale 2 puffs every 6 (six) hours as needed for wheezing 1 each 3 06/07/20 23 023 aspirin 81 mg enteric coated tablet Take 1 tablet (81 mg total) by mouth every morning 01/01/20 23 024 atorvastatin (LIPITOR) 40 mg tabletIndications:AML (acute myeloid leukemia) in remission ([facility]),Type 2 diabetes mellitus with hyperglycemia, with long-term current use of insulin ([facility]),Djpuf-rrnmqw-nxut disease (HCC),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HCC),Pure hypercholesterolemia Take 1 tablet (40 mg total) by mouth daily 30 tablet 6 01/15/20 20 024 blood-glucose meter miscIndications:Type 2 diabetes mellitus with hyperosmolarity 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, with long-term current use of insulin ([facility]) 1 Device 3 (three) times a day 1 each 05/29/20 19 024 calcium carbonate (TUMS) 500 mg (215 mg elemental) tablet,chewableIndicatio ns:Heartburn Take 20 tablets (10,000 mg total) by mouth 2 (two) times a day as needed 024 docusate sodium (COLACE) 100 mg capsuleIndications:const ipation Take 1 capsule (100 mg total) by mouth 2 (two) times a day with a glass of water 20 capsule 01/12/20 22 024 ergocalciferol (VITAMIN D) 50,000 unit capsuleIndications:AML (acute myeloid leukemia) in remission ([facility]),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[facility]),Vitamin D deficiency TAKE 1 CAPSULE BY MOUTH ONCE A WEEK DIRECTED 12 capsule 3 10/24/20 21 024 flash glucose sensor (FreeStyle Evaristo 2 Sensor) kit Change sensor every 14 days 2 kit 11 03/17/20 23 024 cywquiwhmjq-kuapxzzqm-ui lanter (Trelegy Ellipta) 200-62.5-25 mcg inhalerIndications:Chron ic obstructive pulmonary disease, unspecified COPD type ([facility]) Inhale 1 puff daily 60 each 3 05/02/20 23 023 furosemide (LASIX) 20 mg tabletIndications:Type 2 diabetes mellitus with hyperosmolarity 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, with long-term current use of insulin ([facility]) Take 1 tablet (20 mg total) by mouth daily As needed. 30 tablet 01/15/20 20 024 gabapentin (NEURONTIN) 300 mg capsuleIndications:AML (acute myeloid leukemia) in remission ([facility]) TAKE ONE CAPSULE BY MOUTH FOUR TIMES DAILY @9PT-[id number]-[id number]-9PM 120 capsule 11 05/20/20 23 024 insulin glargine (LANTUS, BASAGLAR) 100 unit/mL (3 mL) pen for injectionIndications:Typ e 2 diabetes mellitus with hyperosmolarity 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, with long-term current use of insulin ([facility]) INJECT 15 UNITS NIGHTLY SUB-Q. 1 pen 5 02/04/20 21 024 insulin lispro (HumaLOG, ADMELOG) 100 unit/mL pen for injectionIndications:Typ e 2 diabetes mellitus with hyperosmolarity 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, with long-term current use of insulin ([facility]) INJECT 5-10 UNITS TID WITH MEALS PLUS SLIDING SCALE. TDD OF 35 UNITS. 10 pen 6 02/04/20 21 024 levalbuterol (XOPENEX HFA) 45 mcg/actuation inhalerIndications:AML (acute myeloid leukemia) in remission ([facility]) 06/11/20 23 024 montelukast (SINGULAIR) 10 mg tabletIndications:AML (acute myeloid leukemia) in remission ([facility]),Cboiu-gmkykc-htdt disease ([facility]) Take 1 tablet (10 mg total) by mouth daily 90 tablet 1 06/26/20 22 024 mupirocin (BACTROBAN) 2 % ointmentIndications:Loca l skin infection Apply topically 3 (three) times a day 22 g 05/22/20 23 024 mycophenolate mofetil (CELLCEPT) 500 mg tabletIndications:AML (acute myeloid leukemia) in remission ([facility]),Cwynl-pmqnqu-hgka disease (HCC) TAKE 2 TABLETS(1000 MG) BY MOUTH TWICE DAILY 180 tablet 1 03/17/20 23 023 ondansetron ODT (ZOFRAN-ODT) 4 mg disintegrating tabletIndications:Preven tion of Post-Operative Nausea and Vomiting Take 1 tablet (4 mg total) by mouth every 8 (eight) hours as needed for nausea or vomiting 20 tablet 01/12/20 22 024 predniSONE (DELTASONE) 10 mg tabletIndications:Chroni c obstructive pulmonary disease, unspecified COPD type ([facility]) Take 40mg (4 tablets) daily for 5 days. THEN take 30mg (3 tablets) daily for 5 days. THEN Take 20mg (2 tablets) daily for 5 days. THEN take 10mg (1 tablet) for 5 days. THEN stop. 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) TAKE ONE TABLET BY MOUTH DAILY AT 9 AM 30 tablet 1 05/14/20 23 023 documented as of this encounter Discharge Disposition Disposition Code Departure Means Destination Discharge to home or self care documented in this encounter Plan of Treatment Not on file documented as of this encounter Procedures Procedure Name Priority Date/Time Associated Diagnosis Comments CYTOMEGALOVIRUS (CMV) DNA, QUANT GEN LAB Routine 06/12/2023 10:23 AM CDT 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) EGFR Routine 06/12/2023 10:23 AM CDT 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) DIFFERENTIAL AUTO Routine 06/12/2023 10: 23 AM CDT 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 73 m2 [facility] Comment: Interpretive Data Reference Interval Normal ?>/= [...] Current interpretive data was last reviewed 2021. Testing performed by: [facility], [address] [place] [phone] Blood 06/12/2023 10:2 3 AM CDT 06/12/2023 10:26 AM CDT us Josué Del Valle MD PhD LAB BLOOD ORDERABLES Fin al Result [facility] Department [place] [address] * (ABNORMAL) Differential, auto (06/12/2023 10:23 AM CDT) Neutrophil abs 7.0(H) 1.8 - 6.6 K/cumm [facility] Comment:Testing performed by : [facility], [address] [place] [phone] Lymphocyte abs 2.1 1.2 - 3.3 K/cumm [facility] Comment:Testing performed by : [facility], [address] [place] [phone] Monocyte abs 0.4 0.2 - 1.2 K/cumm [facility] Comment:Testing performed by : [facility], [address] [place] [phone] Eosinophil abs 0.0 0.0 - 0.5 K/cumm [facility] Comment:Testing performed by : [facility], [address] [place] [phone] Basophil abs 0.0 0.0 - 0.2 K/cumm [facility] Comment:Testing performed by : [address] [phone] Neutrophil pct 72.9 % [facility] Comment: Interpretive Data Percent cell count reference ranges are not reported, since discordance with absolute values may lead to misinterpretation of CBC data. Current Interpretive Data was last revised on 2018. Testing performed by: [facility], [address] [place] [phone] Lymphocyte pct 22.2 % [facility] Comment: Interpretive Data Percent cell count reference ranges are not reported, since discordance with absolute values may lead to misinterpretation of CBC data. Current Interpretive Data was last revised on 2018. Testing performed by: [facility], [address] [place] [phone] Monocyte pct 4.4 % [facility] Comment:Testing performed by : [facility], [address] [place] [phone] Eosinophil pct 0.0 % [facility] Comment:Testing performed by : [facility], [address] [place] [phone] Basophil pct 0.5 % [facility] Comment:Testing performed by : [address] [phone] Blood 06/12/2023 10:2 3 AM CDT 06/12/2023 10:26 AM CDT Josué Del Valle MD PhD LAB BLOOD ORDERABLES Fin al Result Performing Organization Address [facility] Co de Phone Number [facility] Department [place] [address] * Lactate dehydrogenase (LD) (06/12/2023 10:23 AM CDT) [facility] Lactate dehydrogenase (LDH) 222 100 - 250 Units/L [facility] Comment:Testing performed by : [facility], [address] [place] [phone] Blood 06/12/2023 10:2 3 AM CDT 06/12/2023 10:26 AM CDT Josué Del Valle MD PhD LAB BLOOD ORDERABLES Fin al Result Performing Organization Address [facility] de Phone Number [facility] Department [place] [address] * (ABNORMAL) CBC with auto differential (06/12/2023 10:23 AM CDT) [facility] WBC 9.5 3.8 - 9.8 K/cumm [facility] Comment:Testing performed by : [facility], [address] [place] [phone] Hgb 14.3 13.8 - 17.2 g/dL [facility] Comment:Testing performed by : [facility], [address] [place] [phone] Hct 42.0 40.7 - 50.3 % [facility] Comment:Testing performed by : [facility], [address] [place] [phone] Plt 349 140 - 440 K/cumm [facility] Comment:Testing performed by : [facility], [address] [place] [phone] MPV 7.6 6.8 - 10.4 fL [facility] Comment:Testing performed by : [facility], [address] [place] [phone] RBC 3.99(L) 4.50 - 5.70 M/cumm [facility] Comment:Testing performed by : [facility], [address] [place], [place] [phone] MCV 105.4(H) 80.0 - 97.6 fL [facility] Comment:Testing performed by : [facility], [address] [place] [phone] MCH 36.0(H) 26.7 - 33.7 pg [facility] Comment:Testing performed by : [facility], [address] [place] [phone] MCHC 34.2 32.7 - 35.5 g/dL [facility] Comment:Testing performed by : [facility], [address] [place] [phone] RDW CV 13.3 11.8 - 14.6 % [facility] Comment:Testing performed by : [facility], [address] [place] [phone] NRBC abs 0.01 0.00 - 0.01 K/cumm [facility] Comment:Testing performed by : [facility], [address] [place] [phone] Blood 06/12/2023 10:2 3 AM CDT 06/12/2023 10:26 AM CDT Josué Del Valle MD PhD LAB BLOOD ORDERABLES Fin al Result [facility] Department [place] [address] * (ABNORMAL) Comprehensive metabolic panel (06/12/2023 10:23 AM CDT) Sodium 141 135 - 145 mmol/L [facility] Comment:Testing performed by : [facility], [address] [place] [phone] Potassium, pl 4.7 3.3 - 4.9 mmol/L [facility] Comment:Testing performed by : [facility], [address] [place] [phone] Chloride 99 97 - 110 mmol/L [facility] Comment:Testing performed by : [facility], [address] [place] [phone] CO2 27 22 - 32 mmol/L [facility] Comment:Testing performed by : [facility], [address] [place] [phone] Anion gap 15 2 - 15 mmol/L [facility] Comment:Testing performed by : [facility], [address] [place] [phone] BUN 16 6 - 25 mg/dL [facility] Comment:Testing performed by : [facility], [address] [place] [phone] Creatinine 0.87 0.80 - 1.30 mg/dL [facility] Comment:Testing performed by : [facility], [address] [place] [phone] Glucose 109 70 - 199 mg/dL [facility] Comment: Interpretive Data Fasting glucose >/= 126 [...] Current interpretive data was last revised 2022. Testing performed by: [facility], [address] [place] [phone] Calcium 10.2 8.5 - 10.3 mg/dL [facility] Comment:Testing performed by : [facility], [address] [place] [phone] Bilirubin, total 0.2 0.1 - 1.2 mg/dL [facility] Comment:Testing performed by : [facility], [address] [place] [phone] Protein, pl 8.6(H) 6.5 - 8.5 g/dL [facility] Comment:Testing performed by : [facility], [address] [place] [phone] Albumin 4.5 3.5 - 5.0 g/dL [facility] Comment:Testing performed by : [facility], [address] [place] [phone] Alk phos 183(H) 40 - 130 Units/L [facility] Comment:Testing performed by : [facility], [address] [place] [phone] ALT 37 7 - 55 Units/L [facility] Comment:Testing performed by : [facility], [address] [place] [phone] AST 26 10 - 50 Units/L [facility] Comment:Testing performed by : [facility], [address] [place] [phone] Blood 06/12/2023 10:2 3 AM CDT 06/12/2023 10:26 AM CDT Josué Del Valle MD PhD LAB BLOOD ORDERABLES Fin al Result [facility] [place] [address] * Cytomegalovirus (CMV) DNA PCR, quantitative Blood (06/12/2023 10:23 AM CDT) [facility] CMV DNA Not Detected [facility] Comment: Interpretive Data: The quantifiable range of this assay is 34 IUnits/mL to 10,000,000 IUnits/mL (1.53 log IUnits/mL to 7.0 log IUnits/mL). Testing was performed by the [employer] [employer] CMV Test ([employer] Testing performed at [facility]. Current interpretive data was last revised on 2021. Blood 06/12/2023 10:2 3 AM CDT 06/12/2023 10:43 AM CDT Josué Del Valle MD PhD LAB MICROBIOLOGY - GENER AL ORDERABLES Final Result Performing Organization Address [facility] Co de Phone Number [facility] Department [place] [address] * Tacrolimus level random (06/12/2023 10:23 AM CDT) Tacrolimus random <1.0 ng/mL [facility] Comment: Undetectable. ??Please verify that the correct immunosuppressant test was requested. Interpretive Data Testing performed by liquid chromatography-tandem mass spectrometry. ??Therapeutic concentrations vary depending on type of transplanted organ and time elapsed since transplant. ??Typical trough concentrations range from 5-15 ng/mL. ??This test was developed and its performance characteristics determined by the [facility] consistent with CLIA requirements. ??This test has not been cleared or approved by the [place] Food and Drug administration. ??Current interpretive data last reviewed 2020. 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
--- OUTSIDE RECORDS SUMMARY | 2024-11-22 10:52 | XMS_ITS | Encounter Summary ---
Author Organization [facility] Address [address] [address] Care Team Providers Care Sourcer Name Role Phone Josué Del Valle MD PhD Unavailable [phone] Kirt Lindsay DO Primary Care Provider [phone] Tay Charlton MD Unavailable [phone] Halie Khan MD Unavailable [phone] StarksAnt goldman MD Unavailable [phone] Reason for Visit * Reason Comments Insect Bite Insect bite, one one bottom lip, one 2 on right arm and one on his left arm, oozing and itchy, noticed it today Encounter Details Date Type Department Care Team (Late st Contact Info) Description 05/22/2023 4:00 PM CDT Office Visit [facility] [address] [address] Monica Fung, ARMEN [address] [place] [id number] Local skin infection (Primary Dx); Insect bite of lip, initial encounter; Insect bite of left upper arm, initial encounter; Insect bite of right forearm, initial encounter Social History Tobacco Use Types Packs/Day Years Used Date Smoking Tobacco: Some Days Cigarettes 0.5 40 Started: 1985 Smokeless Tobacco: Never Tobacco Cessation:Ready to Q uit: Not Asked; Counseling Given: Not Answered Comments:pt states tried to quit AUDIT-C Answer Date Recorded Q1: How often do you have a drink containing alc ohol? 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 Gender Identity Not on file Sexual Orientation Not on file documented as of this encounter Last Filed Vital Signs Vital Sign Reading Time Taken Comments Blood Pressure 93/54 05/22/2023 4:06 PM CDT Pulse 76 05/22/2023 4:06 PM CDT Temperature 37.2 ??C (98.9 ??F) 05/22/2023 4:06 PM CD T Respiratory Rate 18 05/22/2023 4:06 PM CDT Oxygen Saturation 100% 05/22/2023 4:06 PM CDT Inhaled Oxygen Concentration - - Weight 66.5 kg (146 lb 8 oz) 05/22/2023 4:06 PM CDT Height 177.5 cm (5' 9.88 ) 05/22/2023 4:06 PM CD T Body Mass Index 21.09 05/22/2023 4:06 PM CDT documented in this encounter Patient Instructions * Patient Instructions* Monica Fung, BOAT WRAPPER - 05/22/2023 4:00 PM CDT Infection of the skin. Take antibiotic as prescribed until it is gone Keep the affected area elevated Keep area clean and dry Monitor the site closely for signs/symptoms Home care If the infection is on your arm or leg, raise that extremity to reduce swelling. Raise it above thelevel of your heart 3 or 4 times a day, for 30 minutes each time. Keep the infected area clean and dry. You may take a bath or shower but be sure to pat the area drywith a towel afterwards. Do not put any antibiotic ointments or creams on the area. Follow up with your PCP in 2 days for a wound recheck, or sooner if symptoms worsen. Lack of response may be due to an infection with resistant organisms to your current antibiotic.Follow up with your PCP in 2 days for a wound recheck, or sooner if symptoms worsen. Go to ER or Seek immediate medical attention if you develop: A fast heart rate A fever >102 Severe pain Rapidly worsening redness and swelling Red streaking coming from site of infection Increased drainage from site A crackling or popping sound or sensation under the skin (this is called crepitus) A dark brown or black appearance to your skin (this is called necrosis) hat require immediate evaluation by your PCP or ER. These symptoms include: Return to the [facility] or your Primary Care Physician if the red border around the infection area is increasing and/or if symptoms are not improving in 24-48 hours. * Attachments The following attachments cannot be sent through Care Everywhere. * Cellulitis (Hostess Host) (Bahamian) documented in this encounter Ordered Prescriptions Prescription Sig Dispense Quantity Refills Last Filled Start Date End Date cephalexin (KEFLEX) 500 mg capsuleIndications :Local skin infection Take 1 capsule (500 mg total) by mouth 4 (four) times a day for 7 days 28 capsule 05/22/2023 3 mupirocin (BACTROBAN) 2 % ointmentIndication s:Local skin infection Apply topically 3 (three) times a day 22 g 05/22/2023 4 documented in this encounter Progress Notes * Monica Fung NP - 05/22/2023 4:00 PM CDT Images from the original note were not included. Patient ID: Brady Jones is a 57 y.o. male followed by Kirt Lindsay DO Chief Complaint Patient presents with Insect Bite Insect bite, one one bottom lip, one 2 on right arm and one on his left arm, oozing and itchy, noticed it today Patient presents to the clinic with reports of swelling to his lower lip from an insect bite and bites on BL arms that he noticed today. He reports that the bites are itchy. Denies fevers, difficultybreathing, rash, vomiting, streaking from wound, and chills. He has cleaned them for his symptoms but didn't put anything on them. Review of Systems Constitutional: Negative for chills, fatigue and fever. Respiratory: Negative for cough. Cardiovascular: Negative for chest pain. Skin: Positive for wound (insect bites to lip and arms). Neurological: Negative for weakness and headaches. Vitals: 05/22/23 1606 BP: 93/54 BP Location: Right arm Patient Position: Sitting Pulse: 76 Resp: 18 Temp: 37.2 ??C (98.9 ??F) TempSrc: Oral SpO2: 100% Weight: 66.5 kg (146 lb 8 oz) Height: 177.5 cm (5' 9.88 ) No results found for this or any previous visit (from the past 24 hour(s)). Physical Exam Vitals reviewed. Constitutional: General: He is not in acute distress. Appearance: Normal appearance. He is not ill-appearing. HENT: Head: Normocephalic. Mouth/Throat: Lips: Hilger. Cardiovascular: Rate and Rhythm: Normal rate. Pulmonary: Effort: Pulmonary effort is normal. Breath sounds: Normal breath sounds. Skin: General: Skin is warm. Comments: Right arm with 2 erythematous lesions on forearm and left arm with 1; no streaking, warmth, or tenderness with palpation. Areas both with a scant amount of clear drainage (Patient scratchedthem open). Small pustule lesion to bottom of right lip noted. No drainage, streaking, or warmth tolesion. Area is not open and draining. Neurological: Mental Status: He is alert and oriented to person, place, and time. Psychiatric: Mood and Affect: Mood normal. Diagnoses and all orders for this visit: Local skin infection (Primary) - mupirocin (BACTROBAN) 2 % ointment; Apply topically 3 (three) times a day - cephalexin (KEFLEX) 500 mg capsule; Take 1 capsule (500 mg total) by mouth 4 (four) times a day for 7 days Insect bite of lip, initial encounter Insect bite of left upper arm, initial encounter Insect bite of right forearm, initial encounter No orders of the defined types were placed in this encounter. Assessment/Plan # cellulitis of BL arms and lip --start Keflex and mupirocin --monitor marked erythema. Discussed streaking, spreading, or worsening erythema; present immediately to the ED for further evaluation. --keep extremity elevated --ibuprofen/tylenol for fever/pain, use as directed --ED presentation with one or more of the following symptoms: fever uncontrolled with antipyretics,shortness of breath, chest discomfort, uncontrolled n/v/d --f/u with PCP in 3-5 days if symptoms do not improve/worsen Disposition Treatment plan including expectations, follow up, and return precautions discussed with patient/parent, verbalizes understanding. Medication dosage, use, and potential adverse reactions discussed with patient/parent. Advised to follow up with PCP if symptoms do not resolve as expected or sooner if condition worsens. Discussed Signs/symptoms warranting ER evaluation including worsening fever, increased shortness ofbreath, chest pain, severe N/V/D, or any other worrisome symptoms Patient and/or guardian was given an opportunity to ask questions, questions answered. Patient Education Home care If the infection is on your arm or leg, raise that extremity to reduce swelling. Raise it above thelevel of your heart 3 or 4 times a day, for 30 minutes each time. Keep the infected area clean and dry. You may take a bath or shower but be sure to pat the area drywith a towel afterwards. Do not put any antibiotic ointments or creams on the area. Follow up with your PCP in 2 days for a wound recheck, or sooner if symptoms worsen. Lack of response may be due to an infection with resistant organisms to your current antibiotic.Follow up with your PCP in 2 days for a wound recheck, or sooner if symptoms worsen. Go to ER or Seek immediate medical attention if you develop: A fast heart rate A fever >102 Severe pain Rapidly worsening redness and swelling Red streaking coming from site of infection Increased drainage from site A crackling or popping sound or sensation under the skin (this is called crepitus) A dark brown or black appearance to your skin (this is called necrosis) hat require immediate evaluation by your PCP or ER. These symptoms include: Return to the [facility] or your Primary Care Physician if the red border around the infection area is increasing and/or if symptoms are not improving in 24-48 hours. Monica Fung NP Cosigned by Kirt Sheehan MD at 05/22/2023 4:33 PM CDT documented in this encounter Plan of Treatment Not on file documented as of this encounter Visit Diagnoses Diagnosis Local skin infection- Primary Unspecified local infection of skin and subcutaneous tissue Insect bite of lip, initial encounter Insect bite of left upper arm, initial encounter Insect bite of right forearm, initial encounter documented in this encounter Care Teams Sourcer Relationship Specialty Start Date End Date Kirt Lindsay DO PCP - General Internal Medicine 02/02/21 Josué Del Valle MD PhD Medical Oncologist/Superintendent [facility] Medical Oncology 08/26/19 Tay Charlton MD Consulting Physician Gastroenterology 12/03/21 06/11/23 Halie Khan MD [address] [place] [address] Consulting Physician Pulmonary Disease 12/12/21 3 Ant Starks MD [address] [place] [address] Consulting Physician Transplant Hepatology 01/12/22 documented as of this encounter
--- OUTSIDE RECORDS SUMMARY | 2024-11-22 10:52 | XMS_ITS | Encounter Summary ---
Author Organization [facility] Address [address] [facility] [address] [place] [address] Phone Care Team Providers Care Machine Specialist Name Role Phone Josué Del Valle MD PhD Unavailable [phone] Kirt Lindsay DO Primary Care Provider [phone] Tay Charlton MD Unavailable [phone] Halie Khan MD Unavailable [phone] StarksAnt goldman MD Unavailable [phone] Reason for Visit * Reason Comments Diabetes Type 2 * Endocrinology (Routine) - Closed Specialty Diagnoses / Procedures Referred By Contac t Referred To Contact Endocrinology Diagnoses Vitamin D deficiency Type 2 diabetes mellitus with other kidney complication, unspecified whether long term care social worker insulin use (HCC) Other osteoporosis without current pathological fracture Other hyperlipidemia Kirt Lindsay DO Phone: tel: fax: [facility] (All Locations) Referral ID Status Reason Start Date Expiration Date V isits Requested Visits Authorized [id number] Closed Specialty Services Required 02/15/2023 03/16/2024 25 25 Encounter Details Date Type Department Care Team (Latest Contact Info) Description 04/19/2023 9:00 AM CDT Clinical Support 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 INITIAL DIABETES EDUCATION Encounter Date: 04/19/2023 Referring Physician: Ave Montejo MD Mr. Brady Jones is a 57 y.o. male : 1965 Start Time: 0850 End Time: 09 Total Minutes: 48 min Annual Medicare Hours for DSMT and MNT. COVID limiting group classes. Pt will utilize 1:1 education hours. 0.5 Hours of DSMT used today. 1.5 hours remaining for the year. 0 hours of MNT used today. 2 hours remaining for the rest of the year. Brady is here for an initial visit regarding his controlled Type 2 diabetes.. His visit today is for CGM training. [facility] [employer] [facility] Current Diabetes Meds/Insulin Regimen is: Basal: Lantus 5 units once per day Taking at bedtime Bolus: Humalog 2 units before each meal, plus Correction scale of 1 unit for every 30 points > 150 mg/dl. Has been doing 5-6 time per day, Not taking the 2 unit meal dose. Oral Diabetes Meds: None Injectables Diabetes Meds: none Steroid: Predisone Has Ketone Strips: Not Applicable Reviewed CGM/SMBG records He is currently testing blood glucose with One Touch Ultra blood glucose meter He brought meter/CGMfor download. He is testing his blood sugar 0.8 times daily, 14 day average blood sugar is: 167 mg/dl Time in range 72 %. % hypoglycemia: 0% Lab Results Component Value Date CREATININE 0.84 03/25/2023 BUNSER 11 02/18/2023 SODIUM 140 02/18/2023 POTASSIUM 4.5 02/18/2023 CO2 27 03/25/2023 No results found for: MICROALBUR, [id number] No results found for: MICROALBCREA Lab Results Component Value Date HGBA1C 7.0 02/18/2023 Lab Results Component Value Date HGBA1C 7.0 02/18/2023 HGBA1C 7.9 (H) 02/28/2022 HGBA1C 8.5 (H) 02/12/2022 Lab Results Component Value Date CHOL 122 02/18/2023 Lab Results Component Value Date HDL 40 02/18/2023 Lab Results Component Value Date LDLCALC 56 02/18/2023 LDL 154 (H) 05/07/2016 LDLDIRECT 120 01/22/2013 Lab Results Component Value Date TRIG 129 02/18/2023 Anthropometrics Estimated body mass index is 20.67 kg/m?? as calculated from the following: Height as of 02/18/23: 177.5 cm (5' 9.88 ). Weight as of 02/18/23: 65.1 kg (143 lb 9.6 oz). Wt Readings from Last 3 Encounters: 02/18/23 65.1 kg (143 lb 9.6 oz) 02/18/23 64.1 kg (141 lb 6.4 oz) 10/22/22 65.4 kg (144 lb 3.2 oz) Diabetic Health Foot Exams: Patient is checking feet daily for redness, sores or calluses. Eye Exams: Patient has had dilated eye exam within the last year. Urine: Patient has had urine checked in the last year. Do you smoke?: No Do you drink alcohol?: No Areas of Review Missing doses of insulin not taking 2 unit meal dose. Uses correction scale only. Uses his calculator every time to calculate his dose. I gave him printed template that he took a picture of to keep accessible in his phone. Possibly stacking insulin doses. Says he uses his correction scale 5-6 times per day however meter shows 1 test per day. Cautioned him about overcorrecting to often that that wearing CGM. Asked him to correct 4 times per day max with corrections no closer than 4 hours. The following instructions were given during the [employer] CGM training. Difference between fingerstick BG and sensor glucose May dose insulin off of sensor glucose Fingersticks may be recommended at certain times: when you see the 'Check Blood Glucose' symbol, when symptoms do not match sensor reading, when you suspect readings may be inaccurate, or when you experience symptoms that may be due to high or low BG Reviewed inserting sensor Tap Start New Sensor on reader or phone mauro Scan the sensor to begin the 1-hour warm-up period Sensor wear is 14 days Low alert set for 90 mg/dl. High alert set for 250 mg/dl [place] or mauro on smart phone Scanning with reader/phone within 1-4 cm (1.5 inches) to obtain BG at least every 8 hours. May scanthrough clothing. You receive a glucose reading, trend arrow and 8 hour graph showing history of glucose levels Meaning of trend arrows To keep insulin injections three inches away from sensor Sensor is water resistant up to 3 feet for 30 minutes Instructed to remove sensor for xray, CT or MRI Instructed not to take more than 500 mg vit C/day while wearing evaristo as it may cause false high readings Has numbers to call if any problems Current Plan: Patient Behavior Goals Monitoring Date: 04/19/23 Individualized Goal: scan Evaristo sensor at least 4 times per day, before each meal and bedtime My expected health outcome is:: Improved blood sugars Taking Medication Date: 04/19/23 Individualized Goal: Use correction scale no closer than 4 hours from last dose. He has my contact info for future reference. Next follow up visit is scheduled with Dr Montejo 06/25/[address] ,[facility] Diabetes Dennis Referring provider has access to [facility] assessment, education plan and outcomes via [employer] EMR. documented in this encounter Plan of Treatment Not on file documented as of this encounter Visit Diagnoses Diagnosis Type 2 diabetes mellitus with hyperosmolarity 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, with long-term current use of insulin (HCC)- Primary documented in this encounter Care Teams Machine Specialist Relationship Specialty Start Date End Date Kirt Lindsay DO PCP - General Internal Medicine 02/02/21 Josué Del Valle MD PhD Medical Oncologist/Patient Accounts Manager Medical Oncology 08/26/19 Tay Charlton MD Consulting Physician Gastroenterology 12/03/21 06/11/23 Halie Khan MD [address] [address] Consulting Physician Pulmonary Disease 12/12/21 3 Ant Starks MD [address] [address] Consulting Physician Transplant Hepatology 01/12/22 documented as of this encounter
--- OUTSIDE RECORDS SUMMARY | 2024-11-22 10:52 | XMS_ITS | Encounter Summary ---
Author Organization [facility] Healthcare Address [address] [place] [address] Care Team Providers Care Business Intelligence Manager Name Role Phone Josué Del Valle MD PhD Unavailable [phone] Kirt Lindsay DO Primary Care Provider [phone] Tay Charlton MD Unavailable [phone] Halie Khan MD Unavailable [phone] StarksAnt goldman MD Unavailable [phone] Encounter Details Date Type Department Care Team (Latest Contact Info) Description 05/10/2023 7:42 AM CDT - 05/10/2023 11:59 PM CDT Hospital Encounter [facility] ([facility]) [address] [place] [phone] Discharge Disposition: Discharge to home or self [...] on file 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 Gender Identity Not on file Sexual Orientation Not on file documented as of this encounter Medications at Time of Discharge cholecalciferol (VITAMIN D-3) 25 mcg (1,000 unit) tablet Take 2 tablets (2,000 Units total) by mouth every morning 11/13/20 21 flash glucose scanning reader ([employer] Evaristo 2 [place]) [facility] Use to test blood glucose continuously 1 each 1 03/17/20 23 omega-3 fatty acids (LOVAZA) 1 gram capsule Take 1 capsule (1 g total) by mouth daily 02/10/20 21 oxygen Administer 2 L/min into each nostril nightly Nightly and PRN acetaminophen (TYLENOL) 500 mg tablet Take 2 tablets (1,000 mg total) by mouth every 6 (six) hours as needed for pain 30 tablet 01/12/20 22 024 acyclovir (ZOVIRAX) 400 mg tabletIndications:AML (acute myeloid leukemia) in remission ([facility]) TAKE 1 TABLET(400 MG) BY MOUTH EVERY 8 HOURS 270 tablet 1 06/11/20 22 024 albuterol HFA (PROVENTIL HFA,VENTOLIN HFA,PROAIR HFA) 90 mcg/actuation inhalerIndications:Chron ic obstructive pulmonary disease, unspecified COPD type ([facility]) Inhale 2 puffs every 6 (six) hours as needed for wheezing 1 each 3 10/22/20 22 023 aspirin 81 mg enteric coated tablet Take 1 tablet (81 mg total) by mouth every morning 01/01/20 23 024 atorvastatin (LIPITOR) 40 mg tabletIndications:AML (acute myeloid leukemia) in remission ([facility]),Type 2 diabetes mellitus with hyperglycemia, with long-term current use of insulin ([facility]),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[facility]),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[facility]),Pure hypercholesterolemia Take 1 tablet (40 mg total) by mouth daily 30 tablet 6 01/15/20 20 024 blood-glucose meter miscIndications:Type 2 diabetes mellitus with hyperosmolarity 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, with long-term current use of insulin ([facility]) 1 Device 3 (three) times a [...] unit capsuleIndications:AML (acute myeloid leukemia) in remission ([facility]),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[facility]),Vitamin D deficiency TAKE 1 CAPSULE BY MOUTH ONCE A WEEK DIRECTED 12 capsule 3 10/24/20 21 024 flash glucose sensor (FreeStyle Evaristo 2 Sensor) kit Change sensor every 14 days 2 kit 11 03/17/20 23 024 ivobiqxgptl-lelfnkidi-eu lanter (Trelegy Ellipta) 200-62.5-25 mcg inhalerIndications:Chron ic obstructive pulmonary disease, unspecified COPD type ([facility]) Inhale 1 puff daily 60 each 3 05/02/20 23 023 furosemide (LASIX) 20 mg tabletIndications:Type 2 diabetes mellitus with hyperosmolarity 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, with long-term current use of insulin ([facility]) Take 1 tablet (20 mg total) by mouth daily As needed. 30 tablet 01/15/20 20 024 gabapentin (NEURONTIN) 300 mg capsuleIndications:AML (acute myeloid leukemia) in remission ([facility]) Take 1 capsule (300 mg total) by mouth 4 (four) times a day 120 capsule 1 03/25/20 23 023 insulin glargine (LANTUS, BASAGLAR) 100 unit/mL (3 mL) pen for injectionIndications:Typ e 2 diabetes mellitus with hyperosmolarity 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, with long-term current use of insulin ([facility]) INJECT 15 UNITS NIGHTLY SUB-Q. 1 pen 5 02/04/20 21 024 insulin lispro (HumaLOG, ADMELOG) 100 unit/mL pen for injectionIndications:Typ e 2 diabetes mellitus with hyperosmolarity 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, with long-term current use of insulin ([facility]) INJECT 5-10 UNITS TID WITH MEALS PLUS SLIDING SCALE. TDD OF 35 UNITS. 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),Opumh-odyicd-ytxv disease (HCC) Take 1 tablet (10 mg total) by mouth daily 90 tablet 1 06/26/20 22 024 mycophenolate mofetil (CELLCEPT) 500 mg tabletIndications: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),Wbayn-yocwhs-mvcu disease (HCC) TAKE 2 TABLETS(1000 MG) BY [...] c obstructive pulmonary disease, unspecified COPD type ([facility]) Take 40mg (4 tablets) daily for 5 days. THEN take 30mg (3 tablets) daily for 5 days. THEN Take 20mg (2 tablets) daily for 5 days. THEN take 10mg (1 tablet) for 5 days. THEN stop. 50 tablet 05/02/20 23 024 rivaroxaban (Xarelto) 20 mg tabletIndications: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) Take 1 tablet (20 mg total) by mouth daily 30 tablet 1 02/08/20 22 023 tacrolimus (PROGRAF) 0.5 mg immediate-release capsuleIndications: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) TAKE 1 CAPSULE BY MOUTH EVERY OTHER DAY 15 capsule 3 10/04/20 22 023 traMADoL (ULTRAM) 50 mg tablet Take 1 tablet (50 mg total) by mouth every 6 (six) hours 10 tablet 01/12/20 22 04/04/2 024 voriCONAZOLE (VFEND) 200 mg tabletIndications:stem Cell Transplant Take 1 tablet (200 mg total) by mouth 2 (two) times a day 60 tablet 3 05/28/20 22 023 documented as of this encounter Discharge Disposition Disposition Code Departure Means Destination Discharge to home or self care documented in this encounter Plan of Treatment Not on file documented as of this encounter Visit Diagnoses Not on filedocumented in this encounter Care Teams Business Intelligence Manager Relationship Specialty Start Date End Date Kirt Lindsay DO PCP - General Internal Medicine 02/02/21 Josué Del Valle MD PhD Medical Oncologist/Color Room Attendant Medical Oncology 08/26/19 Tay Charlton MD Consulting Physician Gastroenterology 12/03/21 06/11/23 Halie Khan MD [address] [facility] [address] [place], [place] [id number] Consulting Physician Pulmonary Disease 12/12/21 3 Ant Starks MD [address] [place] [address] Consulting Physician Transplant Hepatology 01/12/22 documented as of this encounter
--- OUTSIDE RECORDS SUMMARY | 2024-11-22 10:52 | XMS_ITS | Encounter Summary ---
Author Organization [facility] Address [address] [place] [address] Phone Care Team Providers Care Floor Broker Name Role Phone Josué Del Valle MD PhD Unavailable [phone] Kirt Lindsay DO Primary Care Provider [phone] Tay Charlton MD Unavailable [phone] Halie Khan MD Unavailable [phone] [place] MD Unavailable [phone] Reason for Visit * Reason Onset Date Comments Med Refill 06/06/2023 Encounter Details Date Type Department Care Team (Late st Contact Info) Description 06/06/2023 Telephone [facility] Bone [facility]row Transplant [address] [facility] 7th Floor, [place] [address] Jenna Vasquez RMA Med Refill Social History Tobacco Use Types Packs/Day Years [...] on file 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 Gender Identity Not on file Sexual Orientation Not on file documented as of this encounter Miscellaneous Notes * Telephone Encounter - Jenna Vasquez ESVIN - 06/06/2023 9:40 AM CDT Pharmacy is requesting a refill of levofloxacin 750 mg documented in this encounter Plan of Treatment Not on file documented as of this encounter Visit Diagnoses Not on filedocumented in this encounter Care Teams Floor Broker Relationship Specialty Start Date End Date Kirt Lindsay DO PCP - General Internal Medicine 02/02/21 Josué Del Valle MD PhD Medical Oncologist/Baccarat Dealer Medical Oncology 08/26/19 Tay Charlton MD Consulting Physician Gastroenterology 12/03/21 06/11/23 Halie Khan MD [address] [address] Consulting Physician Pulmonary Disease 12/12/21 3 Ant Starks MD [address] [address] Consulting Physician Transplant Hepatology 01/12/22 documented as of this encounter
--- OUTSIDE RECORDS SUMMARY | 2024-11-22 10:52 | XMS_ITS | Encounter Summary ---
Author Organization [facility] Address [address] [place] [address] Phone Care Team Providers Care Sleep Technician Name Role Phone Josué Del Valle MD PhD Unavailable [phone] Kirt Lindsay DO Primary Care Provider [phone] Cal Carranza DO Unavailable [phone] Halie Khan MD Unavailable [phone] Encounter Details Date Type Department Care Team (Late st Contact Info) Description 01/15/[address] 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 Gender Identity Not on file Sexual Orientation Not on file documented as of this encounter Ordered Prescriptions Prescription Sig Dispense Quantity Refills Last Filled Start Date End Date albuterol HFA (PROVENTIL HFA,VENTOLIN HFA,PROAIR HFA) 90 mcg/actuation inhalerIndications :Chronic obstructive pulmonary disease, unspecified COPD type (HCC) Inhale 2 puffs every 6 (six) hours as needed for wheezing 6.7 g 3 01/15/2024 documented in this encounter Miscellaneous Notes * Telephone Encounter - Josué Rice RN - 01/15/2024 8:26 AM CST Refill sent ALT STILL OPERATOR * Telephone Encounter - Marisa Mcdermott - 01/15/2024 8:08 AM CST [facility] calling ([phone]) for refill on Albuteral Inhaler 90mcg ALT STILL OPERATOR documented in this encounter Plan of Treatment Not on file documented as of this encounter Visit Diagnoses Diagnosis Chronic obstructive pulmonary disease, unspecified COPD type (HCC) documented in this encounter Discontinued Medications Medication Sig Discontinue Reason Start Date End Da te albuterol HFA (PROVENTIL HFA,VENTOLIN HFA,PROAIR HFA) 90 mcg/actuation inhalerIndications:Chron ic obstructive pulmonary disease, unspecified COPD type (HCC) INHALE TWO PUFFS BY MOUTH EVERY 6 HOURS NEEDED FOR WHEEZING (BULK) Reorder 11/27/2023 01/15/2024 documented as of this encounter Care Teams Sleep Technician Relationship Specialty Start Date End Date Kirt Lindsay DO PCP - General Internal Medicine 02/02/21 Josué Del Valle MD PhD Medical Oncologist/Business Advisor Medical Oncology 08/26/19 Cal Carranza DO [address] [facility] [address] [place] [address] Fish Hatchery Supervisor Internal Medicine 06/12/23 Halie Khan MD [address] [facility] [address] [place] [address] Copier Operator Critical Care Med 06/12/23 documented as of this encounter
--- OUTSIDE RECORDS SUMMARY | 2024-11-22 10:52 | XMS_ITS | Encounter Summary ---
Author Organization [facility] Healthcare Address [address] [place] [address] Care Team Providers Care Postal Supervisor Name Role Phone Josué Del Valle MD PhD Unavailable Kirt Lindsay DO Primary Care Provider [phone] Tay Charlton MD Unavailable [phone] Halie Khan MD Unavailable [phone] StarksAnt goldman MD Unavailable [phone] Encounter Details Date Type Department Care Team (Latest Contact Info) Description 06/11/2023 1:49 PM CDT - 06/11/2023 11:59 PM CDT Hospital Encounter [facility]) [address] [place] [address] Discharge Disposition: Discharge to home or self [...] on file 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 Gender Identity Not on file Sexual Orientation Not on file documented as of this encounter Medications at Time of Discharge cholecalciferol (VITAMIN D-3) 25 mcg (1,000 unit) tablet Take 2 tablets (2,000 Units total) by mouth every morning 11/13/20 21 flash glucose scanning reader ([employer] Evaristo 2 [place]) [facility] Use to test blood [...] (acute myeloid leukemia) in remission ([facility]) TAKE 1 TABLET(400 MG) BY MOUTH EVERY 8 HOURS 270 tablet 1 06/11/20 22 024 albuterol HFA (PROVENTIL HFA,VENTOLIN HFA,PROAIR HFA) 90 mcg/actuation inhalerIndications:Chron ic obstructive pulmonary disease, unspecified COPD type ([facility]) Inhale 2 puffs every 6 (six) hours as needed for wheezing 1 each 3 06/07/20 23 023 aspirin 81 mg enteric coated tablet Take 1 tablet (81 mg total) by mouth every morning 01/01/20 23 024 atorvastatin (LIPITOR) 40 mg tabletIndications:AML (acute myeloid leukemia) in remission ([facility]),Type 2 diabetes mellitus with hyperglycemia, with long-term current use of insulin ([facility]),Wpqex-wevkkh-lagm disease ([facility]),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[facility]),Pure hypercholesterolemia Take 1 tablet (40 mg total) by mouth daily 30 tablet 6 01/15/20 20 024 blood-glucose meter miscIndications:Type 2 diabetes mellitus with hyperosmolarity 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, with long-term current use of insulin ([facility]) 1 Device 3 (three) times a day 1 each 05/29/20 19 024 calcium carbonate (TUMS) 500 mg (215 mg elemental) tablet,chewableIndicatio ns:Heartburn Take 20 tablets (10,000 mg total) by mouth 2 (two) times a day as needed 024 cephalexin (KEFLEX) 500 mg capsuleIndications:Local skin infection Take 1 capsule (500 mg total) by mouth 4 (four) times a day for 7 days 28 capsule 05/22/20 23 023 docusate sodium (COLACE) 100 mg capsuleIndications:const ipation Take 1 capsule (100 mg total) by mouth 2 (two) times a day with a glass of water 20 capsule 01/12/20 22 024 ergocalciferol (VITAMIN D) 50,000 unit capsuleIndications:AML (acute myeloid leukemia) in remission ([facility]),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[facility]),Vitamin D deficiency TAKE 1 CAPSULE BY MOUTH ONCE A WEEK DIRECTED 12 capsule 3 10/24/20 21 024 flash glucose sensor (FreeStyle Evaristo 2 Sensor) kit Change sensor every 14 days 2 kit 11 03/17/20 23 024 zbyrpgcqlrf-kodyigqiy-ab lanter (Trelegy Ellipta) 200-62.5-25 mcg inhalerIndications:Chron ic obstructive pulmonary disease, unspecified COPD type ([facility]) Inhale 1 puff daily 60 each 3 05/02/20 23 023 furosemide (LASIX) 20 mg tabletIndications:Type 2 diabetes mellitus with hyperosmolarity 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, with long-term current use of insulin ([facility]) Take 1 tablet (20 mg total) by mouth daily As needed. 30 tablet 01/15/20 20 024 gabapentin (NEURONTIN) 300 mg capsuleIndications:AML (acute myeloid leukemia) in remission ([facility]) TAKE ONE CAPSULE BY MOUTH FOUR TIMES DAILY @[id number]-9PM 120 capsule 11 05/20/20 23 024 insulin glargine (LANTUS, BASAGLAR) 100 unit/mL (3 mL) pen for injectionIndications:Typ e 2 diabetes mellitus with hyperosmolarity 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, with long-term current use of insulin ([facility]) INJECT 15 UNITS NIGHTLY SUB-Q. 1 pen 5 02/04/20 21 024 insulin lispro (HumaLOG, ADMELOG) 100 unit/mL pen for injectionIndications:Typ e 2 diabetes mellitus with hyperosmolarity 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, with long-term current use of insulin ([facility]) INJECT 5-10 UNITS TID WITH MEALS PLUS SLIDING SCALE. TDD OF 35 UNITS. 10 pen 6 02/04/20 21 024 levalbuterol (XOPENEX HFA) 45 mcg/actuation inhalerIndications:AML (acute myeloid leukemia) in remission ([facility]) 06/11/20 024 montelukast (SINGULAIR) 10 mg tabletIndications:AML (acute myeloid leukemia) in remission ([facility]),Pqvbc-nlypet-hbma disease ([facility]) Take 1 tablet (10 mg total) by mouth daily 90 tablet 1 06/26/20 22 024 mupirocin (BACTROBAN) 2 % ointmentIndications:Loca l skin infection Apply topically 3 (three) times a day 22 g 05/22/20 23 024 mycophenolate mofetil (CELLCEPT) 500 mg tabletIndications: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),Fjdzz-cfkwwr-wxlb disease ([facility]CC) TAKE 2 TABLETS(1000 MG) BY [...] c obstructive pulmonary disease, unspecified COPD type ([facility]) Take 40mg (4 tablets) daily for [...] on filedocumented in this encounter Care Teams Postal Supervisor Relationship Specialty Start Date End Date Kirt Lindsay DO PCP - General Internal Medicine 02/02/21 Josué Del Valle MD PhD Medical Oncologist/Corporate Investigator Medical Oncology 08/26/19 Tay Charlton MD Consulting Physician Gastroenterology 12/03/21 06/11/23 Halie Khan MD [address] [place], [place] [id number] Consulting Physician Pulmonary Disease 12/12/21 3 Ant Starks MD [address] [place], [place] [id number] Consulting Physician Transplant Hepatology 01/12/22 documented as of this encounter
--- OUTSIDE RECORDS SUMMARY | 2024-11-22 10:52 | XMS_ITS | Encounter Summary ---
Author Organization [facility] Address [address] [place] [address] Phone Care Team Providers Care Manifest Clerk Name Role Phone Josué Del Valle MD PhD Unavailable Kirt Lindsay DO Primary Care Provider [phone] Cal Carranza DO Unavailable [phone] Halie Khan MD Unavailable [phone] Encounter Details Date Type Department Care Team (Late st Contact Info) Description 08/07/2023 Telephone [facility] Oncology [address] 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 documented in this encounter Plan of Treatment Not on file documented as of this encounter Visit Diagnoses Not on filedocumented in this encounter Care Teams Manifest Clerk Relationship Specialty Start Date End Date Kirt Lindsay DO PCP - General Internal Medicine 02/02/21 Josué Del Valle MD PhD Medical Oncologist/Acrobatic Rigger Medical Oncology 08/26/19 Cal Carranza DO [address] [place] [address] High School Music Teacher Internal Medicine 06/12/23 Halie Khan MD [address] [place] [address] Merchandise Flow Manager Critical Care Med 06/12/23 documented as of this encounter
--- OUTSIDE RECORDS SUMMARY | 2024-11-22 10:52 | XMS_ITS | Encounter Summary ---
Author Organization [facility] Address [address] [place] [address] Phone Care Team Providers Care Product Controller Name Role Phone Josué Del Valle MD PhD Unavailable [phone] Kirt Lindsay DO Primary Care Provider [phone] Tay Charlton MD Unavailable [phone] Halie Khan MD Unavailable [phone] StarksAnt goldman MD Unavailable [phone] Encounter Details Date Type Department Care Team (Late st Contact Info) Description 03/26/2023 Telephone [facility] Oncology [address] [facility] 7th [place] [address] [place] [address] Irina Conrad Social History Tobacco [...] on file 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 Gender Identity Not on file Sexual Orientation Not on file documented as of this encounter Miscellaneous Notes * Telephone Encounter - Irina Conrad - 03/26/2023 10:16 AM CDT She is refaxing request documented in this encounter Plan of Treatment Not on file documented as of this encounter Visit Diagnoses Not on filedocumented in this encounter Care Teams Product Controller Relationship Specialty Start Date End Date Kirt Lindsay DO PCP - General Internal Medicine 02/02/21 Josué Del Valle MD PhD Medical Oncologist/Professor Of Biological Sciences Medical Oncology 08/26/19 Tay Charlton MD Consulting Physician Gastroenterology 12/03/21 06/11/23 Halie Khan MD [address] [id number] Consulting Physician Pulmonary Disease 12/12/21 3 Ant Starks MD [address] [address] Consulting Physician Transplant Hepatology 01/12/22 documented as of this encounter
--- OUTSIDE RECORDS SUMMARY | 2024-11-22 10:52 | XMS_ITS | Encounter Summary ---
Author Organization [facility] Address [address] [place] [address] Phone Care Team Providers Care Cigar Packer And Shader Name Role Phone Josué Del Valle MD PhD Unavailable Kirt Lindsay DO Primary Care Provider [phone] Tay Charlton MD Unavailable [phone] Halie Khan MD Unavailable [phone] StarksAnt goldman MD Unavailable [phone] Encounter Details Date Type Department Care Team (Late st Contact Info) Description 05/22/2023 Orders Only [facility] Bone Marrow Transplant [address] [facility] 7th Floor, [place] [address] Josué Del Valle MD PhD [address] DIV IM BONE MARROW TRANSPLANT, [address] [place] [address] Social History Tobacco Use Types [...] on file 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 Gender Identity Not on file Sexual Orientation Not on file documented as of this encounter Plan of Treatment Not on file documented as of this encounter Visit Diagnoses Not on filedocumented in this encounter Care Teams Cigar Packer And Shader Relationship Specialty Start Date End Date Kirt Lindsay DO PCP - General Internal Medicine 02/02/21 Josué Del Valle MD PhD Medical Oncologist/[place] Medical Oncology 08/26/19 Tay Charlton MD Consulting Physician Gastroenterology 12/03/21 06/11/23 Halie Khan MD [address] [address] Consulting Physician Pulmonary Disease 12/12/21 3 Ant Satrks MD [address] [address] Consulting Physician Transplant Hepatology 01/12/22 documented as of this encounter
--- OUTSIDE RECORDS SUMMARY | 2024-11-22 10:52 | XMS_ITS | Encounter Summary ---
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 03/04/2024 5:11 AM CDT 03/04/2024 5:26 AM CDT us Osmar Orta MD LAB BLOOD ORDERABLES Edited Result - Final [facility] [address] [facility] [facility] Department [place] [address] * (ABNORMAL) Comprehensive metabolic panel (03/04/2024 5:11 AM CDT) Sodium 136 135 - 145 mmol/L Potassium, pl 5.4(H) 3.3 - 4.9 mmol/L [facility] Comment:Hemolyzed; Potassium value may be falsely elevated by as much as 1.0 mmol/L. Suggest redraw and reanalysis. Chloride 98 97 - 110 mmol/L [facility] CO2 29 22 - 32 mmol/L [facility] Anion gap 9 2 - 15 mmol/L [facility] BUN 23 6 - 25 mg/dL [facility] Creatinine 0.96 0.80 - 1.30 mg/dL [facility] Glucose 145 70 - 199 mg/dL [facility] Comment: Interpretive Data Fasting glucose [...] 2022. Calcium 9.2 8.5 - 10.3 mg/dL [facility] Bilirubin, total 0.2 0.1 - 1.2 mg/dL [facility] Protein, pl 7.4 6.5 - 8.5 g/dL [facility] Albumin 3.6 3.5 - 5.0 g/dL [facility] Alk phos 132(H) 40 - 130 Units/L [facility] ALT 26 7 - 55 Units/L [facility] AST 58(H) 10 - 50 Units/L [facility] Comment:Hemolyzed; result ma y be falsely elevated Blood 03/04/2024 5:11 AM CDT 03/04/2024 5:26 AM CDT us Osmar Orta MD LAB BLOOD ORDERABLES Final R esult Performing Organization Address City/[facility] Co de Phone Number ZULEMA [address] [facility] [facility] [employer] [place] [address] * eGFR (03/04/2024 12:05 AM CDT) eGFR [...] ORDERABLES Final Resul t Performing Organization Address [facility] Co de Phone Number ZULEMA [address] [facility] [facility] [employer] [place] [address] * (ABNORMAL) Basic metabolic panel (03/04/2024 12:05 AM CDT) Sodium 136 135 - 145 mmol/L Potassium, pl 5.1(H) 3.3 - 4.9 mmol/L [facility] Comment:Hemolyzed; Potassium value may be falsely elevated by as much as 1.0 mmol/L. Suggest redraw and reanalysis. Chloride 98 97 - 110 mmol/L [facility] CO2 27 22 - 32 mmol/L [facility] Anion gap 11 2 - 15 mmol/L [facility] BUN 25 6 - 25 mg/dL [facility] Creatinine 1.12 0.80 - 1.30 mg/dL [facility] Glucose 158 70 - 199 mg/dL [facility] Comment: Delta - Results Reviewed Interpretive Data [...] 2022. Calcium 9.2 8.5 - 10.3 mg/dL [facility] Blood 03/04/2024 12:0 5 AM CDT 03/04/2024 12:33 AM CDT us Saim Rivera DO LAB BLOOD ORDERABLES Final Resul t [facility] [address] [facility] [facility] Department [place] [address] * POCT glucose (03/03/2024 11:07 PM CDT) Glucose, POC 154 70 - 199 mg/dL Glucose comment 1 Use This Result [facility] Glucose comment 2 RN/MD Notified [facility] Blood 03/03/2024 11:0 7 PM CDT 03/03/2024 11:07 PM CDT Gianna Dey MD LAB POCT ORDERABLES - DEVICE Final Result Performing Organization Address City/[facility] Co de Phone Number ZULEMA [address] [address] * (ABNORMAL) POCT glucose (03/03/2024 7:06 PM CDT) Glucose, POC 225(H) 70 - 199 mg/dL Blood 03/03/2024 7:06 PM CDT 03/03/2024 7:06 PM CDT Gianna Dey MD [facility] POCT ORDERABLES - DEVICE Final Result Performing Organization Address [facility] de Phone Number [address] [address] * Urinalysis reflex to microscopic (03/03/2024 6:14 PM CDT) Color, ur Straw Yellow Clarity, ur Clear Clear [facility] Specific gravity, ur 1.008 1.003 - 1.030 [facility] pH, urine 7.0 [facility] Comment: Interpretive Data ? Urine pH is affected by diet, medications, systemic acid-base disturbances, and renal tubular function. ??pH may affect urinary stone formation. ??For example, urine pH below 6.0 may help reduce the tendency for calcium phosphate stones and pH greater than 6.0 may reduce the tendency for uric acid stone formation. Source: [facility] Current Interpretive Data was last revised on 2017 Protein, ur ql Negative Negative [facility] Glucose, ur ql Negative Negative [facility] Ketones, ur Negative Negative [facility] Bilirubin, ur Negative Negative [facility] Blood, ur Negative Negative [facility] Urobilinogen, ur <2.0 <2.0 mg/dL [facility] Nitrite, ur Negative Negative [facility] Leukocyte esterase, ur Negative Negative [facility] UA reflex comment Reflex conditions for microscopic UA not met. [facility] Urine 03/03/2024 6:14 PM CDT 03/03/2024 6:38 PM CDT us Osmar Orta MD LAB URINE ORDERABLES Final R esult ZULEMA [address] [address] * POCT glucose (03/03/2024 5:05 PM CDT) Glucose, POC 183 70 - 199 mg/dL Glucose comment 1 Use This Result [facility] Blood 03/03/2024 5:05 PM CDT 03/03/2024 5:05 PM CDT us Gianna Dey MD LAB POCT ORDERABLES - DEVICE Final Result Performing Organization Address City/[facility]/ZIP Co de Phone Number [address] [address] * Blood culture Blood (03/03/2024 4:57 PM CDT) Report Final Report: No growth Comment:Testing performed by : [facility], [address] [facility], [place]., [address] Blood 03/03/2024 4:57 PM CDT 03/03/2024 7:51 PM CDT Narrative [facility] - 03/08/2024 7:00 AM CDT From a [...] organism identification may be performed using the [employer] Gram-Positive Blood Culture Assay. This assay detects microbial DNA in positive blood culture broth via hybridization of target DNA to capture oligonucleotides on a microarray. This assay has been cleared by the [place] Food and Drug Administration and its performance characteristics have been verified by the [facility]. 5. ?For questions about this culture, contact the Microbiology Laboratory at [phone]. Interpretive data was last revised on 2020. us Osmar Orta MD LAB MICROBIOLOGY - GENERAL O RDERABLES Final Result [facility] [address] [facility] Department [place] [address] * Blood culture Blood Arm, left (03/03/2024 4:11 PM CDT) Report Final Report: No growth Comment:Testing performed by : [facility], [address] [place] [address] Blood (Arm, left) 03/03/2024 4:11 PM CDT [...] performance characteristics have been verified by the [facility]. 5. ?For questions about this culture, contact the Microbiology Laboratory at [phone]. Interpretive data was last revised on 2020. Osmar Orta MD LAB MICROBIOLOGY - GENERAL O RDERABLES Final Result Performing Organization Address [facility] Co de Phone Number LESLIE[address] [place] [address] * MRSA Only (Staphylococcus aureus) PCR Nasal (03/03/2024 11:56 AM CDT) PCR Scrn, Methicillin resistant Staphylococcus aureus (MRSA) Not Detected Not Detected Comment: Interpretive Data Testing performed using Nucleic Acid Amplification with the [employer] Xpert MRSA NxG Assay. This assay detects target DNA from mecA, mecC and the SCCmec insertion site of Staphylococcus aureus using Real-Time PCR and has been cleared by the FDA. Performance characteristics have been verified by the [facility]. Current Interpretive Data was last revised on 2023 Nasal 03/03/2024 11:5 6 AM CDT 03/03/2024 12:24 PM CDT Osmar Orta MD LAB MICROBIOLOGY - GENERAL O RDERABLES Final Result Performing Organization Address [facility] Co de Phone Number LESLIE[address] [place], [place] [id number] * POCT glucose (03/03/2024 11:55 AM CDT) Glucose, POC 169 70 - 199 mg/dL Glucose comment 1 Use This Result [facility] Blood 03/03/2024 11:5 5 AM CDT 03/03/2024 11:55 AM CDT Gianna Dey MD LAB POCT ORDERABLES - DEVICE Final Result Performing Organization Address [facility] de Phone Number [address] [place] [address] * POCT glucose (03/03/2024 7:38 AM CDT) Glucose, POC 172 70 - 199 mg/dL Glucose comment 1 Use This Result [facility] Blood 03/03/2024 7:38 AM CDT 03/03/2024 7:38 AM CDT Gianna Dey MD LAB POCT ORDERABLES - DEVICE Final Result Performing Organization Address [facility] de Phone Number [address] [address] * POCT glucose (03/03/2024 5:53 AM CDT) Glucose, POC 96 70 - 199 mg/dL Glucose comment 1 Use This Result [facility] Blood 03/03/2024 5:53 AM CDT 03/03/2024 5:53 AM CDT Gianna Dey MD LAB POCT ORDERABLES - DEVICE Final Result Performing Organization Address [facility] de Phone Number [address] [place] [address] * POCT glucose (03/03/2024 4:30 AM CDT) Glucose, POC 112 70 - 199 mg/dL Glucose comment 1 Use This Result [facility] Blood 03/03/2024 4:30 AM CDT 03/03/2024 4:30 AM CDT us Gianna Dey MD LAB POCT ORDERABLES - DEVICE Final Result Performing Organization Address [facility] de Phone Number ZULEMA [address] [facility] [employer] [place] [address] * eGFR (03/03/2024 4:23 AM CDT) eGFR [...] ORDERABLES Final R esult Performing Organization Address [facility] de Phone Number ZULEMA [facility] [employer] [place] [address] * (ABNORMAL) Manual Differential (03/03/2024 4:23 AM CDT) Pathologist [facility] Differential Manual Cells Counted 100 [facility] Neutrophil abs 11.0(H) 1.5 - 6.5 K/cumm [facility] Lymphocyte abs 8.1(H) 0.8 - 3.3 K/cumm [facility] Monocyte abs 1.7(H) 0.2 - 0.8 K/cumm [facility] Neutrophil pct 53.0 % [facility] Comment: Interpretive Data Percent cell count reference ranges are not reported, since discordance with absolute values may lead to misinterpretation of CBC data. Current Interpretive Data was last revised on 2018. Lymphocyte pct 39.0 % [facility] Comment: Interpretive Data Percent cell count reference ranges are not reported, since discordance with absolute values may lead to misinterpretation of CBC data. Current Interpretive Data was last revised on 2018. Monocyte pct 8.0 % [facility] Comment: Interpretive Data Percent cell count reference ranges are not reported, since discordance with absolute values may lead to misinterpretation of CBC data. Current Interpretive Data was last revised on 2018. RBC morphology Consistent with RBC Indicies [facility] Platelet estimate Automated Count Confirmed [facility] Blood 03/03/2024 4:23 AM CDT 03/03/2024 5:21 AM CDT us Osmar Orta MD LAB BLOOD ORDERABLES Final R esult [facility] [address] [facility] [place] [address] * (ABNORMAL) Comprehensive metabolic panel (03/03/2024 4:23 AM CDT) Pathologist [facility] Sodium 138 135 - 145 mmol/L Potassium, pl 4.5 3.3 - 4.9 mmol/L [facility] Comment:Hemolyzed; Potassium value may be falsely elevated by as much as 1.0 mmol/L. Suggest redraw and reanalysis. Chloride 102 97 - 110 mmol/L ZU[facility] CO2 25 22 - 32 mmol/L [facility] Anion gap 11 2 - 15 mmol/L [facility] BUN 26(H) 6 - 25 mg/dL [facility] Creatinine 0.82 0.80 - 1.30 mg/dL [facility] Glucose 53(C) 70 - 199 mg/dL [facility] Comment: Delta - Results Reviewed ??Critical Result called to and read back by [email or web address], DATE: 2024-03-03 06:18:02 BY: [email or web address] Interpretive Data Fasting glucose >/= 126 mg/dl [...] 2022. Calcium 9.0 8.5 - 10.3 mg/dL [facility] Bilirubin, total 0.2 0.1 - 1.2 mg/dL [facility] Protein, pl 6.7 6.5 - 8.5 g/dL [facility] Albumin 3.6 3.5 - 5.0 g/dL [facility] Alk phos 122 40 - 130 Units/L [facility] ALT 18 7 - 55 Units/L [facility] AST 56(H) 10 - 50 Units/L [facility] Comment:Hemolyzed; result ma y be falsely elevated Blood 03/03/2024 4:23 AM CDT 03/03/2024 5:21 AM CDT us Osmar Orta MD LAB BLOOD ORDERABLES Final R esult [facility] [address] [facility] [place] [address] * (ABNORMAL) CBC with auto differential (03/03/2024 4:23 AM CDT) WBC 20.8(H) 3.8 - 9.9 K/cumm Hgb 11.6(L) 13.0 - 17.5 g/dL [facility] Hct 36.1(L) 38.9 - 50.3 % [facility] Plt 324 150 - 400 K/cumm [facility] MPV 9.9 9.1 - 12.3 fL [facility] RBC 3.31(L) 4.30 - 5.80 M/cumm [facility] MCV 109.1(H) 81.3 - 96.4 fL [facility] MCH 35.0(H) 27.1 - 33.3 pg [facility] MCHC 32.1(L) 32.3 - 35.7 g/dL [facility] RDW CV 17.6(H) 11.1 - 14.9 % [facility] RDW SD 70.2(H) 35.7 - 48.1 fL [facility] NRBC abs 0.63(H) 0.00 - 0.01 K/cumm [facility] Blood 03/03/2024 4:23 AM CDT 03/03/2024 5:21 AM CDT Osmar Orta MD LAB BLOOD ORDERABLES Final R esult Performing Organization Address City/[facility]/ZIP Co de Phone Number [address] [employer] [place] [address] * POCT glucose (03/03/2024 12:54 AM CDT) [facility] Glucose, POC 157 70 - 199 mg/dL Glucose comment 1 Use This Result [facility] Blood 03/03/2024 12:5 4 AM CDT 03/03/2024 12:54 AM CDT Gianna Dey MD LAB POCT ORDERABLES - DEVICE Final Result Performing Organization Address City/[facility]/ZIP Co de Phone Number [address] [place] [address] * POCT glucose (03/02/2024 7:14 PM CDT) Glucose, POC 170 70 - 199 mg/dL Glucose comment 1 Use This Result [facility] Blood 03/02/2024 7:14 PM CDT 03/02/2024 7:14 PM CDT Gianna Dey MD LAB POCT ORDERABLES - DEVICE Final Result UZLE[facility] [address] [facility] [place] [address] * CT Chest WO Contrast (03/02/2024 6:51 [...] findings. FINDINGS: LUNGS: ??Coarse opacity in the tgbin-[id number]-uxgk-upper lungs are new since 04/03/2022, superimposed on [...] ??Unremarkable. ?? IMPRESSION: Coarse opacities in the icuxb-dbjoiej-rcbi-upper lungs are new since 04/03/2022, favored to [...] D: ??03/02/2024 7:43 PM T: Report ID: [id number] Reading Location: ??[id number] Procedure Note Kaushik Nur MD - 03/02/2024 [...] findings. FINDINGS: LUNGS: Coarse opacity in the ltcnt-uzxzzfb-lnph-upper lungs are new since 04/03/2022, superimposed on [...] WALL: Unremarkable. IMPRESSION: Coarse opacities in the zghko-idniqcg-hqmy-upper lungs are new since 04/03/2022, favored to [...] Kaushik Nur M.D. AR T: Report ID: [id number] Reading Location: [id number] us Osmar Orta MD IMG CT PROCEDURES Final Resu lt * (ABNORMAL) POCT glucose (03/02/2024 4:56 PM CDT) Glucose, POC 308(H) 70 - 199 mg/dL Glucose comment 1 Use This Result [facility] Glucose comment 2 RN/MD Notified [facility] CHAVEZ Blood 03/02/2024 4:56 PM CDT 03/02/2024 4:56 PM CDT Gianna Dey MD LAB POCT ORDERABLES - DEVICE Final Result Performing Organization Address [facility] de Phone Number ZULEMA [address] [address] * (ABNORMAL) POCT glucose (03/02/2024 12:48 PM CDT) Glucose, POC 335(H) 70 - 199 mg/dL Glucose comment 1 Use This Result [facility] Glucose comment 2 RN/MD Notified [facility] Blood 03/02/2024 12:4 8 PM CDT 03/02/2024 12:48 PM CDT Gianna Dey MD LAB POCT ORDERABLES - DEVICE Final Result Performing Organization Address [facility] de Phone Number ZULEMA [address] [address] * POCT glucose (03/02/2024 8:07 AM CDT) Glucose, POC 121 70 - 199 mg/dL Glucose comment 1 Use This Result [facility] Glucose comment 2 RN/MD Notified [facility] Blood 03/02/2024 8:07 AM CDT 03/02/2024 8:07 AM CDT Gianna Dey MD LAB POCT ORDERABLES - DEVICE Final Result Performing Organization Address [facility] de Phone Number [address] [address] * (ABNORMAL) Manual Differential (03/02/2024 5:24 AM CDT) Differential Manual Cells Counted 100 [facility] Neutrophil abs 8.3(H) 1.5 - 6.5 K/cumm [facility] Lymphocyte abs 7.6(H) 0.8 - 3.3 K/cumm [facility] Monocyte abs 0.3 0.2 - 0.8 K/cumm [facility] Neutrophil pct 51.0 % [facility] Comment: Interpretive Data Percent cell count reference ranges are not reported, since discordance with absolute values may lead to misinterpretation of CBC data. Current Interpretive Data was last revised on 2018. Lymphocyte pct 47.0 % [facility] Comment: Interpretive Data Percent cell count reference ranges are not reported, since discordance with absolute values may lead to misinterpretation of CBC data. Current Interpretive Data was last revised on 2018. Monocyte pct 2.0 % [facility] Comment: Interpretive Data Percent cell count reference ranges are not reported, since discordance with absolute values may lead to misinterpretation of CBC data. Current Interpretive Data was last revised on 2018. RBC morphology Present(A) [facility] Polychromasia 3-7/HPF(A) [facility] Hypochromasia 3-7/HPF(A) [facility] Anisocytosis Slight(A) [facility] Macrocytes 3-7/HPF(A) [facility] Teardrop cells 3-7/HPF(A) [facility] Gaitan-Kanosh bodies Present(A) [facility] Platelet estimate Adequate [facility] Blood 03/02/2024 5:24 AM CDT 03/02/2024 5:48 AM CDT us Saim Rivera DO LAB BLOOD ORDERABLES Final Resul t [facility] [address] [facility] Department [place] [address] * (ABNORMAL) CBC without differential (03/02/2024 5:24 AM CDT) WBC 16.2(H) 3.8 - 9.9 K/cumm Hgb 11.4(L) 13.0 - 17.5 g/dL [facility] Hct 35.2(L) 38.9 - 50.3 % [facility] Plt 346 150 - 400 K/cumm [facility] MPV 9.8 9.1 - 12.3 fL [facility] RBC 3.24(L) 4.30 - 5.80 M/cumm [facility] MCV 108.6(H) 81.3 - 96.4 fL [facility] MCH 35.2(H) 27.1 - 33.3 pg [facility] MCHC 32.4 32.3 - 35.7 g/dL [facility] RDW CV 17.2(H) 11.1 - 14.9 % [facility] RDW SD 68.5(H) 35.7 - 48.1 fL [facility] NRBC abs 0.37(H) 0.00 - 0.01 K/cumm [facility] Blood 03/02/2024 5:24 AM CDT 03/02/2024 5:48 AM CDT us Diana Rivera DO LAB BLOOD ORDERABLES Edited Resu lt - Final [facility] [address] [facility] [facility] Department of Laboratories [place], [place] [id number] * eGFR (03/01/2024 11:38 PM CDT) eGFR [...] Inclusion of Race in Diagnosing Kidney Disease, PEETYSN 2020). The CKD-EPI equation should not be used for patients with unstable renal function and has not been validated in children and those over 70. Current interpretive data was last reviewed 2021. Blood 03/01/2024 11:3 8 PM CDT 03/01/2024 11:49 PM CDT [facility] Rivera DO LAB BLOOD ORDERABLES Final Resul t Performing Organization Address [facility] de Phone Number [facility] [address] [facility] [facility] Department [place] [address] * Basic metabolic panel (03/01/2024 11:38 PM CDT) Pathologist [facility] Sodium 137 135 - 145 mmol/L Potassium, pl 4.2 3.3 - 4.9 mmol/L [facility] Chloride 101 97 - 110 mmol/L [facility] CO2 29 22 - 32 mmol/L [facility] Anion gap 7 2 - 15 mmol/L [facility] BUN 24 6 - 25 mg/dL [facility] Creatinine 0.82 0.80 - 1.30 mg/dL [facility] Glucose 159 70 - 199 mg/dL [facility] Comment: Interpretive Data Fasting glucose [...] 2022. Calcium 8.6 8.5 - 10.3 mg/dL [facility] Blood 03/01/2024 11:3 8 PM CDT 03/01/2024 11:49 PM CDT [facility] Rivera DO LAB BLOOD ORDERABLES Final Resul t Performing Organization Address City/[facility]/ZIP Co de Phone Number ZULEMA [address] [place] [address] * POCT glucose (03/01/2024 10:22 PM CDT) Glucose, POC 150 70 - 199 mg/dL Blood 03/01/2024 10:2 2 PM CDT 03/01/2024 10:22 PM CDT Gianna Dey MD LAB POCT ORDERABLES - DEVICE Final Result Performing Organization Address [facility] de Phone Number [address] [address] * (ABNORMAL) POCT glucose (03/01/2024 7:23 PM CDT) Glucose, POC 332(H) 70 - 199 mg/dL Glucose comment 1 Use This Result [facility] Blood 03/01/2024 7:23 PM CDT 03/01/2024 7:23 PM CDT Gianna Dey MD LAB POCT ORDERABLES - DEVICE Final Result Performing Organization Address [facility] de Phone Number [address] [place] [address] * (ABNORMAL) POCT glucose (03/01/2024 4:53 PM CDT) Glucose, POC 344(H) 70 - 199 mg/dL Glucose comment 1 Use This Result [facility] Glucose comment 2 RN/MD Notified ZULEMA Blood 03/01/2024 4:53 PM CDT 03/01/2024 4:53 PM CDT Gianna Dey MD LAB POCT ORDERABLES - DEVICE Final Result Performing Organization Address [facility] Co de Phone Number [address] [place] [address] * POCT glucose (03/01/2024 11:52 AM CDT) Glucose, POC 178 70 - 199 mg/dL Glucose comment 1 Use This Result [facility] Glucose comment 2 RN/ Notified [facility] Blood 03/01/2024 11:5 2 AM CDT 03/01/2024 11:52 AM CDT Gianna Dey MD LAB POCT ORDERABLES - DEVICE Final Result Performing Organization Address [facility] Co de Phone Number [address] [place] [address] * (ABNORMAL) POCT glucose (03/01/2024 8:02 AM CDT) Glucose, POC 226(H) 70 - 199 mg/dL Glucose comment 1 Use This Result [facility] Glucose comment 2 RN/ Notified ZULEMA Blood 03/01/2024 8:02 AM CDT 03/01/2024 8:02 AM CDT Gianna Dey MD LAB POCT ORDERABLES - DEVICE Final Result Performing Organization Address [facility] Co de Phone Number [address] [place] [address] * (ABNORMAL) POCT glucose (03/01/2024 3:46 AM CDT) Glucose, POC 202(H) 70 - 199 mg/dL Glucose comment 1 Use This Result [facility] Glucose comment 2 RN/ Notified ZULEMA Blood 03/01/2024 3:46 AM CDT 03/01/2024 3:46 AM CDT Diana Rivera DO LAB POCT ORDERABLES - DEVICE Fin al Result Performing Organization Address City/[facility]/ZIP [place] [address] [place] [address] * POCT glucose (03/01/2024 12:02 AM CDT) Glucose, POC 173 70 - 199 mg/dL Blood 03/01/2024 12:0 2 AM CDT 03/01/2024 12:02 AM CDT Saim Rivera DO LAB POCT ORDERABLES - DEVICE Fin al Result ZULEMA [address] [address] * POCT glucose (02/29/2024 7:30 PM CDT) Glucose, POC 164 70 - 199 mg/dL Glucose comment 1 Use This Result [facility] Blood 02/29/2024 7:30 PM CDT 02/29/2024 7:30 PM CDT Saim Rivera DO LAB POCT ORDERABLES - DEVICE Fin al Result Performing Organization Address City/[facility]/ZIP Co de Phone Number ZULEMA [address] [place] [address] * (ABNORMAL) POCT glucose (02/29/2024 6:12 PM CDT) Glucose, POC 254(H) 70 - 199 mg/dL Blood 02/29/2024 6:12 PM CDT 02/29/2024 6:12 PM CDT Saim Rivera DO LAB POCT ORDERABLES - DEVICE Fin al Result Performing Organization Address City/[facility]/ZIP Co de Phone Number LESLIE[address] [address] * (ABNORMAL) POCT glucose (02/29/2024 4:33 PM CDT) Glucose, POC 373(H) 70 - 199 mg/dL Blood 02/29/2024 4:33 PM CDT 02/29/2024 4:33 PM CDT Saim Rivera DO LAB POCT ORDERABLES - DEVICE Fin al Result Performing Organization Address [facility] Co de Phone Number [address] [address] * POCT glucose (02/29/2024 11:20 AM CDT) Pathologist [facility] Glucose, POC 144 70 - 199 mg/dL Blood 02/29/2024 11:2 0 AM CDT 02/29/2024 11:20 AM CDT [facility] Rivera [facility] POCT ORDERABLES - DEVICE Fin al Result Performing Organization Address [facility] de Phone Number [address] [address] * (ABNORMAL) CBC without differential (02/29/2024 7:34 AM CDT) [facility] WBC 12.4(H) 3.8 - 9.9 K/cumm Hgb 11.2(L) 13.0 - 17.5 g/dL [facility] Hct 34.0(L) 38.9 - 50.3 % [facility] Plt 365 150 - 400 K/cumm [facility] MPV 9.9 9.1 - 12.3 fL [facility] RBC 3.17(L) 4.30 - 5.80 M/cumm [facility] MCV 107.3(H) 81.3 - 96.4 fL [facility] MCH 35.3(H) 27.1 - 33.3 pg [facility] MCHC 32.9 32.3 - 35.7 g/dL [facility] RDW CV 17.2(H) 11.1 - 14.9 % [facility] RDW SD 67.0(H) 35.7 - 48.1 fL [facility] NRBC abs 0.27(H) 0.00 - 0.01 K/cumm [facility] Blood 02/29/2024 7:34 AM CDT 02/29/2024 8:13 AM CDT Josefa Taylor LAB BLOOD ORDERABLES Pilar l Result Performing Organization Address [facility] Co de Phone Number LESLIE[address] [place] [address] * POCT glucose (02/29/2024 7:18 AM CDT) Glucose, POC 123 70 - 199 mg/dL Blood 02/29/2024 7:18 AM CDT 02/29/2024 7:18 AM CDT Saim Rivera DO LAB POCT ORDERABLES - DEVICE Fin al Result Performing Organization Address [facility] de Phone Number [address] [place] [address] * POCT glucose (02/29/2024 2:06 AM CDT) Glucose, POC 150 70 - 199 mg/dL Glucose comment 1 Use This Result [facility] Glucose comment 2 RN/MD Notified [facility] Blood 02/29/2024 2:06 AM CDT 02/29/2024 2:06 AM CDT Saim Rivera DO LAB POCT ORDERABLES - DEVICE Fin al Result Performing Organization Address [facility] Co de Phone Number [address] [place] [address] * POCT glucose (02/29/2024 1:00 AM CDT) Glucose, POC 100 70 - 199 mg/dL Blood 02/29/2024 1:00 AM CDT 02/29/2024 1:00 AM CDT Saim Rivera DO LAB POCT ORDERABLES - DEVICE Fin al Result Performing Organization Address [facility]/ZIP Co de Phone Number ZULEMA [address] [address] * (ABNORMAL) POCT glucose (02/29/2024 12:43 AM CDT) Glucose, POC 59(L) 70 - 199 mg/dL Blood 02/29/2024 12:4 3 AM CDT 02/29/2024 12:43 AM CDT Saim Rivera DO LAB POCT ORDERABLES - DEVICE Fin al Result Performing Organization Address [facility] Co de Phone Number ZULEMA [address] [address] * (ABNORMAL) POCT glucose (02/29/2024 12:08 AM CDT) Glucose, POC 56(L) 70 - 199 mg/dL Glucose comment 1 Use This Result [facility] Glucose comment 2 RN/MD Notified [facility] Blood 02/29/2024 12:0 8 AM CDT 02/29/2024 12:08 AM CDT Saim Rivera DO LAB POCT ORDERABLES - DEVICE Fin al Result Performing Organization Address [facility] Co de Phone Number ZULEMA [address] [place] [address] * (ABNORMAL) POCT glucose (02/28/2024 8:40 PM CDT) Glucose, POC 296(H) 70 - 199 mg/dL Glucose comment 1 Use This Result [facility] Glucose comment 2 RN/MD Notified [facility] Blood 02/28/2024 8:40 PM CDT 02/28/2024 8:40 PM CDT Saim Rivera DO LAB POCT ORDERABLES - DEVICE Fin al Result Performing Organization Address [facility] Co de Phone Number ZULEMA [address] [place] [address] * (ABNORMAL) POCT glucose (02/28/2024 4:55 PM CDT) Glucose, POC 248(H) 70 - 199 mg/dL Glucose comment 1 Use This Result [facility] Blood 02/28/2024 4:55 PM CDT 02/28/2024 4:55 PM CDT Saim Rivera DO LAB POCT ORDERABLES - DEVICE Fin al Result Performing Organization Address [facility] Co de Phone Number LESLIE[address] [address] * POCT glucose (02/28/2024 12:39 PM CDT) Glucose, POC 163 70 - 199 mg/dL Glucose comment 1 Use This Result [facility] Blood 02/28/2024 12:3 9 PM CDT 02/28/2024 12:39 PM CDT Saim Rivera DO LAB POCT ORDERABLES - DEVICE Fin al Result Performing Organization Address [facility] Co de Phone Number LESLIE[address] [place] [address] * POCT glucose (02/28/2024 12:02 PM CDT) Glucose, POC 173 70 - 199 mg/dL Blood 02/28/2024 12:0 2 PM CDT 02/28/2024 12:02 PM CDT Saim Rivera DO LAB POCT ORDERABLES - DEVICE Fin al Result Performing Organization Address City/[facility]/ZIP Co de Phone Number LESLIE[address] [place] [address] * EGD (02/28/2024 11:38 AM CDT) Anatomical Region Laterality Modality Other Narrative Procedure Note Gee Mcdaniel MD - 02/28/2024 11:38 AM CDT [facility] DORAL GI ENDOSCOPY Patient Name: Bri Jones Procedure Date: 02/28/2024 11:38 AM Date of : 1965 Admit Type: Inpatient Age: 58 Gender: Male Attending MD: Gee Ravi M.D. Room: [facility] ENDOSCOPY ROOM [facility] Note Status: Finalized Procedure: Upper GI [...] On: 02/28/2024 11:38 AM Recognized by the [employer] for promoting quality in endoscopy Gee Mcdaniel MD ENDOSCOPY P ROCEDURES Final Result * POCT glucose (02/28/2024 8:02 AM CDT) Glucose, POC 118 70 - 199 mg/dL Glucose comment 1 Use This Result ZULEMA CHAVEZ Blood 02/28/2024 8:02 AM CDT 02/28/2024 8:02 AM CDT Diana Rivera DO LAB POCT ORDERABLES - DEVICE Fin al Result [facility] [address] [facility] Department [place] [address] * (ABNORMAL) Lipid panel (02/28/2024 [...] on 2018. HDL 82 >=40 mg/dL [facility] Comment: Interpretive Data Ages [...] 2018. LDL, calculated 37 <=129 mg/dL [facility] Comment: Interpretive Data Ages [...] 2018. Chol/HDL ratio 2 [facility] Blood 02/28/2024 5:2 6 AM CDT 02/28/2024 6:30 AM CDT us Diana Rivera DO LAB BLOOD ORDERABLES Final Resul t [facility] [address] [facility] [place] [address] * eGFR (02/28/2024 5:26 AM [...] LAB BLOOD ORDERABLES Final Resul t [facility] [address] [facility] [facility] Department [place] [address] * (ABNORMAL) Basic metabolic panel (02/28/2024 5:26 AM CDT) Sodium 136 135 - 145 mmol/L Potassium, pl 4.3 3.3 - 4.9 mmol/L [facility] Comment:Hemolyzed; Potassium value may be falsely elevated by as much as 1.0 mmol/L. Suggest redraw and reanalysis. Chloride 98 97 - 110 mmol/L [facility] CO2 28 22 - 32 mmol/L [facility] Anion gap 10 2 - 15 mmol/L [facility] BUN 28(H) 6 - 25 mg/dL [facility] Creatinine 0.78(L) 0.80 - 1.30 mg/dL [facility] Glucose 164 70 - 199 mg/dL [facility] Comment: Interpretive Data Fasting glucose [...] 2022. Calcium 8.7 8.5 - 10.3 mg/dL [facility] Blood 02/28/2024 5:26 AM CDT 02/28/2024 6:30 AM CDT us Diana Rivera DO LAB BLOOD ORDERABLES Final Resul t [facility] [address] [facility] [facility] [place] [address] * (ABNORMAL) CBC without differential (02/28/2024 5:26 AM CDT) WBC 13.6(H) 3.8 - 9.9 K/cumm Hgb 11.4(L) 13.0 - 17.5 g/dL [facility] Hct 33.9(L) 38.9 - 50.3 % [facility] Plt 378 150 - 400 K/cumm [facility] MPV 9.8 9.1 - 12.3 fL [facility] RBC 3.26(L) 4.30 - 5.80 M/cumm [facility] MCV 104.0(H) 81.3 - 96.4 fL [facility] MCH 35.0(H) 27.1 - 33.3 pg [facility] MCHC 33.6 32.3 - 35.7 g/dL [facility] RDW CV 16.5(H) 11.1 - 14.9 % [facility] RDW SD 62.6(H) 35.7 - 48.1 fL [facility] NRBC abs 0.42(H) 0.00 - 0.01 K/cumm [facility] Blood 02/28/2024 5:26 AM CDT 02/28/2024 6:30 AM CDT Josefa Taylor [employer] LAB BLOOD ORDERABLES Pilar l Result Performing Organization Address [facility] Co de Phone Number LESLIE[address] [place] [address] * POCT glucose (02/28/2024 4:09 AM CDT) Glucose, POC 184 70 - 199 mg/dL Glucose comment 1 Use This Result [facility] Glucose comment 2 RN/MD Notified [facility] Blood 02/28/2024 4:09 AM CDT 02/28/2024 4:09 AM CDT Saim Rivera DO LAB POCT ORDERABLES - DEVICE Fin al Result Performing Organization Address [facility] Co de Phone Number [address] [place] [address] * (ABNORMAL) POCT glucose (02/28/2024 4:08 AM CDT) Glucose, POC 202(H) 70 - 199 mg/dL Blood 02/28/2024 4:08 AM CDT 02/28/2024 4:08 AM CDT Saim Rivera DO LAB POCT ORDERABLES - DEVICE Fin al Result Performing Organization Address [facility] Co de Phone Number [address] [place] [address] * POCT glucose (02/28/2024 12:34 AM CDT) Glucose, POC 132 70 - 199 mg/dL Glucose comment 1 Use This Result [facility] Glucose comment 2 RN/MD Notified ZU[facility]MA Blood 02/28/2024 12:3 4 AM CDT 02/28/2024 12:34 AM CDT us Saim Rivera DO LAB POCT ORDERABLES - DEVICE Fin al Result Performing Organization Address [facility] de Phone Number ZULEMA [address] [place] [address] * POCT glucose (02/27/2024 11:46 PM CDT) Glucose, POC 97 70 - 199 mg/dL Glucose comment 1 Use This Result [facility] Glucose comment 2 RN/MD Notified [facility] Blood 02/27/2024 11:4 6 PM CDT 02/27/2024 11:46 PM CDT Saim Rivera DO LAB POCT ORDERABLES - DEVICE Fin al Result Performing Organization Address [facility] de Phone Number ZULEMA [address] [place] [address] * POCT glucose (02/27/2024 11:17 PM CDT) Glucose, POC 128 70 - 199 mg/dL Glucose comment 1 Use This Result [facility] Glucose comment 2 RN/ Notified ZULEMA Blood 02/27/2024 11:1 7 PM CDT 02/27/2024 11:17 PM CDT us Saim Rivera DO LAB POCT ORDERABLES - DEVICE Fin al Result Performing Organization Address [facility] de Phone Number LESLIE[address] [place] [address] * (ABNORMAL) POCT glucose (02/27/2024 8:56 PM CDT) Glucose, POC 340(H) 70 - 199 mg/dL Glucose comment 1 Use This Result [facility] Glucose comment 2 RN/ Notified ZULEMA Blood 02/27/2024 8:56 PM CDT 02/27/2024 8:56 PM CDT us Diana Rivera DO LAB POCT ORDERABLES - DEVICE Fin al Result [facility] [address] [facility] [place] [address] * XR Chest PA Lateral 2 Views (02/27/2024 6:05 PM CDT) Anatomical Region Laterality Modality Body, Chest N/A Computed Radiogr aphy 02/28/2024 5:50 AM CDT Narrative 02/28/2024 5:53 AM CDT EXAM DESCRIPTION: XR CHEST PA LATERAL 2 VIEWS REASON FOR STUDY: Immunosuppressed state pneumoniae ?? Evaluate immunosupressed pneumoniae. ?? TECHNIQUE: PA and lateral ??radiographic view(s) of the chest. COMPARISON: [id number]. FINDINGS: LUNGS: ??There is apical opacity on [...] D: ??02/28/2024 5:53 AM T: Report ID: [id number] Reading Location: ??[id number] Procedure Note Vianey Mares MD - 02/28/2024 EXAM DESCRIPTION: XR CHEST PA LATERAL 2 VIEWS REASON FOR STUDY: Immunosuppressed state pneumoniae Evaluate immunosupressed pneumoniae. TECHNIQUE: PA and lateral radiographic view(s) of the chest. COMPARISON: [id number]. FINDINGS: LUNGS: There is apical opacity on [...] Vianey Mares M.D. TW T: Report ID: [id number] Reading Location: [place] [address] Osmar Orta MD IMG XR PROCEDURES Final Resu lt * POCT glucose (02/27/2024 5:04 PM CDT) Glucose, POC 123 70 - 199 mg/dL Blood 02/27/2024 5:04 PM CDT 02/27/2024 5:04 PM CDT Saim Rivera DO LAB POCT ORDERABLES - DEVICE Fin al Result Performing Organization Address [facility] de Phone Number [address] [employer] [place] [address] * POCT glucose (02/27/2024 12:01 PM CDT) Glucose, POC 151 70 - 199 mg/dL Blood 02/27/2024 12:0 1 PM CDT 02/27/2024 12:01 PM CDT Saim Rivera DO LAB POCT ORDERABLES - DEVICE Fin al Result Performing Organization Address [facility] Co de Phone Number LESLIE[address] [employer] [place] [address] * (ABNORMAL) POCT glucose (02/27/2024 8:00 AM CDT) Glucose, POC 59(L) 70 - 199 mg/dL Blood 02/27/2024 8:00 AM CDT 02/27/2024 8:00 AM CDT Diana Rivera DO LAB POCT ORDERABLES - DEVICE Fin al Result Performing Organization Address [facility] [facility] de Phone Number ZULEMA [address] [employer] [place] [address] * (ABNORMAL) CBC without differential (02/27/2024 6:10 AM CDT) Pathologist [facility] WBC 14.4(H) 3.8 - 9.9 K/cumm Hgb 10.4(L) 13.0 - 17.5 g/dL [facility] Hct 31.7(L) 38.9 - 50.3 % [facility] Plt 358 150 - 400 K/cumm [facility] MPV 9.9 9.1 - 12.3 fL [facility] RBC 3.05(L) 4.30 - 5.80 M/cumm [facility] MCV 103.9(H) 81.3 - 96.4 fL [facility] MCH 34.1(H) 27.1 - 33.3 pg [facility] MCHC 32.8 32.3 - 35.7 g/dL [facility] RDW CV 16.3(H) 11.1 - 14.9 % [facility] RDW SD 62.5(H) 35.7 - 48.1 fL [facility] NRBC abs 0.44(H) 0.00 - 0.01 K/cumm [facility] Blood 02/27/2024 6:10 AM CDT 02/27/2024 6:20 AM CDT Josefa Taylor NP LAB BLOOD ORDERABLES Pilar l Result Performing Organization Address City/[facility] Co de Phone Number ZULEMA [address] [place] [address] * POCT glucose (02/27/2024 3:51 AM CDT) Glucose, POC 148 70 - 199 mg/dL Glucose comment 1 Use This Result [facility] Glucose comment 2 RN/MD Notified ZULEMA Blood 02/27/2024 3:51 AM CDT 02/27/2024 3:51 AM CDT Saim Rivera DO LAB POCT ORDERABLES - DEVICE Fin al Result Performing Organization Address City/[facility] Co de Phone Number LESLIE[address] [address] * POCT glucose (02/27/2024 2:15 AM CDT) Glucose, POC 87 70 - 199 mg/dL Glucose comment 1 Use This Result [facility] Glucose comment 2 RN/MD Notified ZULEMA Blood 02/27/2024 2:15 AM CDT 02/27/2024 2:15 AM CDT Saim Rivera DO LAB POCT ORDERABLES - DEVICE Fin al Result Performing Organization Address [facility] Co de Phone Number [address] [address] * POCT glucose (02/26/2024 11:49 PM CDT) Glucose, POC 178 70 - 199 mg/dL Glucose comment 1 Use This Result [facility] Glucose comment 2 RN/MD Notified LESLIEAVTAR Blood 02/26/2024 11:4 9 PM CDT 02/26/2024 11:49 PM CDT Saim Rivera DO LAB POCT ORDERABLES - DEVICE Fin al Result Performing Organization Address City/[facility]/ZIP Co de Phone Number [address] [address] * POCT glucose (02/26/2024 8:36 PM CDT) Glucose, POC 190 70 - 199 mg/dL Glucose comment 1 Use This Result [facility] Glucose comment 2 RN/MD Notified ZULEMA Blood 02/26/2024 8:36 PM CDT 02/26/2024 8:36 PM CDT Saim Rivera DO LAB POCT ORDERABLES - DEVICE Fin al Result Performing Organization Address City/[facility] Co de Phone Number LESLIE[address] [place] [address] * (ABNORMAL) POCT glucose (02/26/2024 4:39 PM CDT) Glucose, POC 384(H) 70 - 199 mg/dL Glucose comment 1 Use This Result [facility] Blood 02/26/2024 4:39 PM CDT 02/26/2024 4:39 PM CDT SaRatify Rivera DO LAB POCT ORDERABLES - DEVICE Fin al Result Performing Organization Address [facility] de Phone Number LESLIE[address] [place] [address] * POCT glucose (02/26/2024 11:39 AM CDT) Glucose, POC 97 70 - 199 mg/dL Glucose comment 1 Use This Result [facility] Blood 02/26/2024 11:3 9 AM CDT 02/26/2024 11:39 AM CDT Saim Rivera DO LAB POCT ORDERABLES - DEVICE Fin al Result Performing Organization Address [facility] Co de Phone Number [address] [place] [address] * POCT glucose (02/26/2024 10:53 AM CDT) Glucose, POC 111 70 - 199 mg/dL Glucose comment 1 Use This Result ZULEMA Blood 02/26/2024 10:5 3 AM CDT 02/26/2024 10:53 AM CDT Saim Rivera DO LAB POCT ORDERABLES - DEVICE Fin al Result Performing Organization Address [facility] Co de Phone Number ZULEMA [address] [place] [address] * (ABNORMAL) POCT glucose (02/26/2024 10:30 AM CDT) Glucose, POC 61(L) 70 - 199 mg/dL Glucose comment 1 Use This Result ZULEMA Glucose comment 2 RN/MD Notified ZULEMA Blood 02/26/2024 10:3 0 AM CDT 02/26/2024 10:30 AM CDT Saim Rivera DO LAB POCT ORDERABLES - DEVICE Fin al Result Performing Organization Address [facility] Co de Phone Number LESLIE[address] [address] * POCT glucose (02/26/2024 7:34 AM CDT) Glucose, POC 163 70 - 199 mg/dL Glucose comment 1 Use This Result ZULEMA Blood 02/26/2024 7:34 AM CDT 02/26/2024 7:34 AM CDT Saim Rivera DO LAB POCT ORDERABLES - DEVICE Fin al Result Performing Organization Address [facility] Co de Phone Number LESLIE[address] [place] [address] * eGFR (02/26/2024 5:42 AM CDT) eGFR [...] NP LAB BLOOD ORDERABLES Pilar armas Result [facility] [address] [facility] [place] [address] * (ABNORMAL) CBC without differential (02/26/2024 5:42 AM CDT) WBC 13.4(H) 3.8 - 9.9 K/cumm Hgb 11.6(L) 13.0 - 17.5 g/dL [facility] Hct 34.7(L) 38.9 - 50.3 % [facility] Plt 418(H) 150 - 400 K/cumm [facility] MPV 10.1 9.1 - 12.3 fL [facility] RBC 3.31(L) 4.30 - 5.80 M/cumm [facility] MCV 104.8(H) 81.3 - 96.4 fL [facility] MCH 35.0(H) 27.1 - 33.3 pg [facility] MCHC 33.4 32.3 - 35.7 g/dL [facility] RDW CV 16.2(H) 11.1 - 14.9 % [facility] RDW SD 62.5(H) 35.7 - 48.1 fL [facility] NRBC abs 0.25(H) 0.00 - 0.01 K/cumm [facility] Blood 02/26/2024 5:42 AM CDT 02/26/2024 6:49 AM CDT Josefa Taylor NP LAB BLOOD ORDERABLES Pilar armas Result Performing Organization Address City/State/[facility] Co de Phone Number [facility] [address] [facility] [place] [address] * Basic metabolic panel (02/26/2024 5:42 AM CDT) Sodium 139 135 - 145 mmol/L Potassium, pl 3.6 3.3 - 4.9 mmol/L [facility] Chloride 99 97 - 110 mmol/L [facility] CO2 31 22 - 32 mmol/L [facility] Anion gap 9 2 - 15 mmol/L [facility] BUN 24 6 - 25 mg/dL [facility] Creatinine 0.81 0.80 - 1.30 mg/dL [facility] Glucose 140 70 - 199 mg/dL [facility] Comment: Interpretive Data Fasting glucose [...] 2022. Calcium 9.1 8.5 - 10.3 mg/dL [facility] Blood 02/26/2024 5:42 AM CDT 02/26/2024 6:50 AM CDT Josefa McculloughBrandon LAB BLOOD ORDERABLES Pilra l Result Performing Organization Address [facility] de Phone Number [address] [place] [address] * POCT glucose (02/26/2024 4:22 AM CDT) Glucose, POC 125 70 - 199 mg/dL Glucose comment 1 Use This Result [facility] Blood 02/26/2024 4:22 AM CDT 02/26/2024 4:22 AM CDT [facility] Rivera DO LAB POCT ORDERABLES - DEVICE Fin al Result Performing Organization Address [facility] de Phone Number [address] [place] [address] * POCT glucose (02/26/2024 12:14 AM CDT) Glucose, POC 121 70 - 199 mg/dL Blood 02/26/2024 12:1 4 AM CDT 02/26/2024 12:14 AM CDT Saim Rivera DO LAB POCT ORDERABLES - DEVICE Fin al Result Performing Organization Address [facility] de Phone Number [address] [place] [address] * (ABNORMAL) POCT glucose (02/25/2024 7:22 PM CDT) Glucose, POC 362(H) 70 - 199 mg/dL Glucose comment 1 Use This Result [facility] Glucose comment 2 RN/MD Notified [facility] Blood 02/25/2024 7:22 PM CDT 02/25/2024 7:22 PM CDT Diana Christensena DO LAB POCT ORDERABLES - DEVICE Fin al Result Performing Organization Address [facility] de Phone Number ZULEMA [facility] [place] [address] * POCT glucose (02/25/2024 4:26 PM CDT) [facility] Signature Glucose, POC 152 70 - 199 mg/dL Glucose comment 1 Use This Result ZULEMA Blood 02/25/2024 4:26 PM CDT 02/25/2024 4:26 PM CDT Result [facility] Diana Rivera DO LAB POCT ORDERABLES - DEVICE Clark al Result Performing Organization Address [facility] de Phone Number ZULEMA [address] [address] * TRANSTHORACIC ECHO (TTE) COMPLETE W DOPPLER/CF W CONTRAST (02/25/2024 2:03 PM CDT) Anatomical Region Laterality Modality Ultrasound 02/25/2024 2:03 PM CDT Narrative 02/26/2024 4:01 PM CDT ? Adult Echocardiogram + ----- + :Name: BRI JONES ??Study Date: 02/25/2024 ?Status: MHB ?: : ?Patient Location: [facility] [address]^[id number]^Height: 71 in ?: : ?Weight: 142 lbBP: 142/89 mmHg: :: 1965 ? Gender: Male ?BSA: 1.8 m2 ?: :Reason For Study: Endocarditis ? : :Ordering Physician: ?: :TELEMAQUE, KEMUEL ?: :Referring Physician: NO, ? : :PHYSICIAN ?: :Performed By: Kaylee ?: :Zully, RDSAM ?: + ----- + Procedure A two-dimensional [...] Date: 02/25/2024Status: MHB : : Patient Location: [address]^[id number]^Height: 71 in : : : 142 lbBP: [...] ZULEMA Glucose comment 2 RN/MD Notified ZULEMA CHAVEZ Blood 02/25/2024 11:4 7 AM CDT 02/25/2024 11:47 AM CDT us Diana Rivera DO LAB POCT ORDERABLES - DEVICE Fin al Result ZULEMA [address] [facility] [place] [address] * POCT glucose (02/25/2024 7:57 AM CDT) Glucose, POC 99 70 - 199 mg/dL Glucose comment 1 Use This Result ZULEMA Glucose comment 2 RN/MD Notified ZULEMA Blood 02/25/2024 7:57 AM CDT 02/25/2024 7:57 AM CDT Diana Rivera DO LAB POCT ORDERABLES - DEVICE Fin al Result Performing Organization Address [facility] de Phone Number LESLIE[address] [place] [address] * (ABNORMAL) POCT glucose (02/25/2024 4:21 AM CDT) Glucose, POC 218(H) 70 - 199 mg/dL Glucose comment 1 Use This Result ZULEMA Blood 02/25/2024 4:21 AM CDT 02/25/2024 4:21 AM CDT Corbin Cole MD LAB POCT ORDERABLES - DEVICE Final Result Performing Organization Address [facility] de Phone Number [address] [address] * eGFR (02/25/2024 2:22 AM CDT) Pathologist [facility] eGFR [...] MD LAB BLOOD ORDERABLES Final R esult [place] [address] [facility] [place] [address] * (ABNORMAL) Differential, auto (02/25/2024 2:22 AM CDT) Neutrophil abs 10.0(H) 1.5 - 6.5 K/cumm Imm gran abs 0.1 0.0 - 0.1 K/cumm [facility] Lymphocyte abs 4.0(H) 0.8 - 3.3 K/cumm [facility] Monocyte abs 1.2(H) 0.2 - 0.8 K/cumm [facility] Eosinophil abs 0.0 0.0 - 0.5 K/cumm [facility] Basophil abs 0.0 0.0 - 0.1 K/cumm [facility] Neutrophil pct 65.4 % [facility] Comment: Interpretive Data Percent cell count reference ranges are not reported, since discordance with absolute values may lead to misinterpretation of CBC data. Current Interpretive Data was last revised on 2018. Imm gran pct 0.7 % [facility] Comment: Interpretive Data Percent cell count reference ranges are not reported, since discordance with absolute values may lead to misinterpretation of CBC data. Current Interpretive Data was last revised on 2018. Lymphocyte pct 26.0 % [facility] Comment: Interpretive Data Percent cell count reference ranges are not reported, since discordance with absolute values may lead to misinterpretation of CBC data. Current Interpretive Data was last revised on 2018. Monocyte pct 7.8 % [facility] Comment: Interpretive Data Percent cell count reference ranges are not reported, since discordance with absolute values may lead to misinterpretation of CBC data. Current Interpretive Data was last revised on 2018. Eosinophil pct 0.0 % [facility] Comment: Interpretive Data Percent cell count reference ranges are not reported, since discordance with absolute values may lead to misinterpretation of CBC data. Current Interpretive Data was last revised on 2018. Basophil pct 0.1 % [facility] Comment: Interpretive Data Percent cell count reference ranges are not reported, since discordance with absolute values may lead to misinterpretation of CBC data. Current Interpretive Data was last revised on 2018. Blood 02/25/2024 2:22 AM CDT 02/25/2024 3:28 AM CDT us Osmar Orta MD LAB BLOOD ORDERABLES Final R esult [place] [address] [facility] [place] [address] * Comprehensive metabolic panel (02/25/2024 2:22 AM CDT) Sodium 140 135 - 145 mmol/L Potassium, pl 3.9 3.3 - 4.9 mmol/L [facility] Chloride 102 97 - 110 mmol/L [facility] CO2 28 22 - 32 mmol/L [facility] Anion gap 10 2 - 15 mmol/L [facility] BUN 22 6 - 25 mg/dL [facility] Creatinine 0.90 0.80 - 1.30 mg/dL [facility] Glucose 71 70 - 199 mg/dL [facility] Comment: Delta - Results Reviewed Interpretive Data [...] 2022. Calcium 8.9 8.5 - 10.3 mg/dL [facility] Bilirubin, total 0.2 0.1 - 1.2 mg/dL [facility] Protein, pl 7.4 6.5 - 8.5 g/dL [facility] Albumin 3.5 3.5 - 5.0 g/dL [facility] Alk phos 113 40 - 130 Units/L [facility] ALT 27 7 - 55 Units/L [facility] AST 22 10 - 50 Units/L [facility] Blood 02/25/2024 2:22 AM CDT 02/25/2024 3:28 AM CDT us Osmar Orta MD LAB BLOOD ORDERABLES Final R esult [facility] [address] [facility] [place] [address] * (ABNORMAL) CBC with auto differential (02/25/2024 2:22 AM CDT) WBC 15.2(H) 3.8 - 9.9 K/cumm Hgb 11.1(L) 13.0 - 17.5 g/dL [facility] Hct 33.6(L) 38.9 - 50.3 % [facility] Plt 405(H) 150 - 400 K/cumm [facility] MPV 10.2 9.1 - 12.3 fL [facility] RBC 3.17(L) 4.30 - 5.80 M/cumm [facility] MCV 106.0(H) 81.3 - 96.4 fL [facility] MCH 35.0(H) 27.1 - 33.3 pg [facility] MCHC 33.0 32.3 - 35.7 g/dL [facility] RDW CV 15.9(H) 11.1 - 14.9 % [facility] RDW SD 62.0(H) 35.7 - 48.1 fL [facility] NRBC abs 0.09(H) 0.00 - 0.01 K/cumm [facility] Blood 02/25/2024 2:22 AM CDT 02/25/2024 3:28 AM CDT Osmar Orta MD LAB BLOOD ORDERABLES Final R esult Performing Organization Address [facility] Co de Phone Number ZULEMA [address] [address] * POCT glucose (02/25/2024 2:15 AM CDT) Glucose, POC 78 70 - 199 mg/dL Blood 02/25/2024 2:15 AM CDT 02/25/2024 2:15 AM CDT Corbin Cole MD LAB POCT ORDERABLES - DEVICE Final Result Performing Organization Address [facility] de Phone Number ZULEMA [address] [place] [address] * POCT glucose (02/24/2024 11:22 PM CDT) Glucose, POC 152 70 - 199 mg/dL Glucose comment 1 Use This Result ZULEMA Blood 02/24/2024 11:2 2 PM CDT 02/24/2024 11:22 PM CDT Corbin Cole MD LAB POCT ORDERABLES - DEVICE Final Result Performing Organization Address [facility] de Phone Number ZULEMA [address] [address] * (ABNORMAL) POCT glucose (02/24/2024 7:32 PM CDT) Glucose, POC 229(H) 70 - 199 mg/dL Glucose comment 1 Use This Result ZULEMA Blood 02/24/2024 7:32 PM CDT 02/24/2024 7:32 PM CDT Corbin Cole MD LAB POCT ORDERABLES - DEVICE Final Result Performing Organization Address City/[facility]/ZIP Co de Phone Number ZULEMA [address] [facility] [place] [address] * POCT glucose (02/24/2024 4:57 PM CDT) Glucose, POC 131 70 - 199 mg/dL Glucose comment 1 Use This Result ZULEMA Blood 02/24/2024 4:57 PM CDT 02/24/2024 4:57 PM CDT Corbin Cole MD LAB POCT ORDERABLES - DEVICE Final Result Performing Organization Address [facility] Co de Phone Number ZULEMA [address] [place] [address] * Blood culture Blood Arm, right (02/24/2024 1:18 PM CDT) Report Final Report: No growth Comment:Testing performed by : [facility], [address] [facility], [place]., [address] Blood (Arm, right) 02/24/2024 1:18 PM CDT [...] organism identification may be performed using the [employer] Gram-Positive Blood Culture Assay. This assay detects microbial DNA in positive blood culture broth via hybridization of target DNA to capture oligonucleotides on a microarray. This assay has been cleared by the [place] Food and Drug Administration and its performance characteristics have been verified by the [facility]. 5. ?For questions about this culture, contact the Microbiology Laboratory at [phone]. Interpretive data was last revised on 2020. Corbin Cole MD LAB MICROBIOLOGY - [facility] ORDERABLES Final Result ZULEMA [address] [facility] Department [place] [address] * Blood culture Blood Arm, right (02/24/2024 12:56 PM CDT) Report Final Report: No growth Comment:Testing performed by : [facility], [address] [facility], [place]., [address] Blood (Arm, right) 02/24/2024 12:56 PM CDT 02/24/2024 3:55 PM CDT Narrative ZULEMA - 02/28/2024 4:01 PM CDT Collection->Peripheral 1. [...] performance characteristics have been verified by the [facility]. 5. ?For questions about this culture, contact the Microbiology Laboratory at [phone]. Interpretive data was last revised on 2020. Corbin Cole MD LAB MICROBIOLOGY - G ENERAL ORDERABLES Final Result Performing Organization Address [facility] Co de Phone Number ZULEMA [address] [place] [address] * POCT glucose (02/24/2024 11:51 AM CDT) Glucose, POC 105 70 - 199 mg/dL Glucose comment 1 Use This Result ZULEMA Blood 02/24/2024 11:5 1 AM CDT 02/24/2024 11:51 AM CDT Result [facility] Corbin Cole MD LAB POCT ORDERABLES - DEVICE Final Result Performing Organization Address [facility] de Phone Number LESLIE[address] [place] [address] * POCT glucose (02/24/2024 8:22 AM CDT) Glucose, POC 112 70 - 199 mg/dL Glucose comment 1 Use This Result ZULEMA Blood 02/24/2024 8:22 AM CDT 02/24/2024 8:22 AM CDT Corbin Cole MD LAB POCT ORDERABLES - DEVICE Final Result Performing Organization Address [facility] Co de Phone Number CERNER [address] [place] [address] * eGFR (02/24/2024 4:56 AM CDT) [facility] eGFR >90 [...] LAB BLOOD ORDERABLES Pilar armas Result ZULEMA [address] [facility] [place] [address] * (ABNORMAL) CBC without differential (02/24/2024 4:56 AM CDT) [facility] WBC 11.7(H) 3.8 - 9.9 K/cumm Hgb 11.3(L) 13.0 - 17.5 g/dL [facility] Hct 34.2(L) 38.9 - 50.3 % [facility] Plt 382 150 - 400 K/cumm [facility] MPV 10.3 9.1 - 12.3 fL [facility] RBC 3.23(L) 4.30 - 5.80 M/cumm [facility] MCV 105.9(H) 81.3 - 96.4 fL [facility] MCH 35.0(H) 27.1 - 33.3 pg [facility] MCHC 33.0 32.3 - 35.7 g/dL [facility] RDW CV 15.9(H) 11.1 - 14.9 % [facility] RDW SD 61.6(H) 35.7 - 48.1 fL [facility] NRBC abs 0.03(H) 0.00 - 0.01 K/cumm [facility] Blood 02/24/2024 4:56 AM CDT 02/24/2024 6:09 AM CDT Josefa Taylor NP LAB BLOOD ORDERABLES Pilar armas Result [facility] [address] [facility] Department [place] [address] * (ABNORMAL) Basic metabolic panel (02/24/2024 4:56 AM CDT) Sodium 137 135 - 145 mmol/L Potassium, pl 4.0 3.3 - 4.9 mmol/L [facility] Chloride 98 97 - 110 mmol/L [facility] CO2 30 22 - 32 mmol/L [facility] Anion gap 9 2 - 15 mmol/L [facility] BUN 19 6 - 25 mg/dL [facility] Creatinine 0.67(L) 0.80 - 1.30 mg/dL [facility] Glucose 288(H) 70 - 199 mg/dL [facility] Comment: Interpretive Data Fasting glucose [...] 2022. Calcium 9.0 8.5 - 10.3 mg/dL [facility] Blood 02/24/2024 4:56 AM CDT 02/24/2024 6:09 AM CDT Josefa Taylor NP LAB BLOOD ORDERABLES Pilar l Result Performing Organization Address [facility] Co de Phone Number [address] [place] [address] * (ABNORMAL) POCT glucose (02/24/2024 4:14 AM CDT) Glucose, POC 345(H) 70 - 199 mg/dL Glucose comment 1 Use This Result [facility] Glucose comment 2 RN/MD Notified [facility] Blood 02/24/2024 4:14 AM CDT 02/24/2024 4:14 AM CDT Corbin Cole MD LAB POCT ORDERABLES - DEVICE Final Result Performing Organization Address City/[facility] Co de Phone Number [address] [place] [address] * POCT glucose (02/24/2024 12:00 AM CDT) Glucose, POC 115 70 - 199 mg/dL Blood 02/24/2024 02/24/2024 12: 00 AM CDT Corbin Cole MD LAB POCT ORDERABLES - DEVICE Final Result Performing Organization Address City/[facility]/ZIP Co de Phone Number [address] [place] [address] * (ABNORMAL) POCT glucose (02/23/2024 8:19 PM CDT) Glucose, POC 336(H) 70 - 199 mg/dL Glucose comment 1 Use This Result [facility] Glucose comment 2 RN/MD Notified ZULEMA Blood 02/23/2024 8:19 PM CDT 02/23/2024 8:19 PM CDT Corbin Cole MD LAB POCT ORDERABLES - DEVICE Final Result Performing Organization Address [facility] Co de Phone Number LESLIEAVTAR [address] [address] * (ABNORMAL) POCT glucose (02/23/2024 4:48 PM CDT) Glucose, POC 245(H) 70 - 199 mg/dL Glucose comment 1 Use This Result [facility] Glucose comment 2 RN/MD Notified ZULEMA Blood 02/23/2024 4:48 PM CDT 02/23/2024 4:48 PM CDT Corbin Cole MD LAB POCT ORDERABLES - DEVICE Final Result Performing Organization Address [facility] Co de Phone Number [address] [place] [address] * POCT glucose (02/23/2024 11:30 AM CDT) Glucose, POC 118 70 - 199 mg/dL Glucose comment 1 Use This Result [facility] Blood 02/23/2024 11:3 0 AM CDT 02/23/2024 11:30 AM CDT us Corbin Cole MD LAB POCT ORDERABLES - DEVICE Final Result Performing Organization Address City/[facility] [facility]/ZIP Co de Phone Number [address] [place] [address] * Mycoplasma pneumoniae PCR Sputum (02/23/2024 8:53 AM CDT) Pathologist [facility] M. pneumoniae DNA Not Detected Not Detected [facility] Comment: Interpretive Data: This assay tests for the presence of Mycoplasma pneumoniae. ?? This test is laboratory developed and its performance characteristics were determined by the performing laboratory in a manner consistent with CLIA requirements. This test has not been cleared or approved by the U.S. Food and Drug Administration. Current Interpretive Data was last revised on 2020. Testing performed by: [facility], [address] [place] [address] Sputum 02/23/2024 8:53 AM CDT 02/23/2024 7:05 PM CDT Corbin Cole MD LAB MICROBIOLOGY - G ENERAL ORDERABLES Final Result Performing Organization Address [facility]/ZIP Co de Phone Number [place] [phone] [facility] [place] [address] [facility] * POCT glucose (02/23/2024 7:36 AM CDT) [facility] Glucose, POC 159 70 - 199 mg/dL Glucose comment 1 Use This Result [facility] Blood 02/23/2024 7:36 AM CDT 02/23/2024 7:36 AM CDT Corbin Cole MD LAB POCT ORDERABLES - DEVICE Final Result Performing Organization Address [facility] de Phone Number [place] [address] [facility] [place] [address] * eGFR (02/23/2024 6:31 AM CDT) [facility] eGFR >90 [...] NP LAB BLOOD ORDERABLES Pilar armas Result [place] [address] [facility] [place] [address] * (ABNORMAL) CBC without differential (02/23/2024 6:31 AM CDT) WBC 7.7 3.8 - 9.9 K/cumm Hgb 10.5(L) 13.0 - 17.5 g/dL [facility] Hct 31.5(L) 38.9 - 50.3 % [facility] Plt 339 150 - 400 K/cumm [facility] MPV 9.9 9.1 - 12.3 fL [facility] RBC 3.01(L) 4.30 - 5.80 M/cumm [facility] MCV 104.7(H) 81.3 - 96.4 fL [facility] MCH 34.9(H) 27.1 - 33.3 pg [facility] MCHC 33.3 32.3 - 35.7 g/dL [facility] RDW CV 15.5(H) 11.1 - 14.9 % [facility] RDW SD 59.8(H) 35.7 - 48.1 fL [facility] NRBC abs 0.00 0.00 - 0.01 K/cumm [facility] Blood 02/23/2024 6:31 AM CDT 02/23/2024 7:19 AM CDT Josefa Taylor NP LAB BLOOD ORDERABLES Pilar armas Result [facility] [address] [facility] [place] [address] * (ABNORMAL) Basic metabolic panel (02/23/2024 6:31 AM CDT) Sodium 135 135 - 145 mmol/L Potassium, pl 4.2 3.3 - 4.9 mmol/L [facility] Chloride 98 97 - 110 mmol/L [facility] CO2 28 22 - 32 mmol/L [facility] Anion gap 9 2 - 15 mmol/L [facility] BUN 15 6 - 25 mg/dL [facility] Creatinine 0.62(L) 0.80 - 1.30 mg/dL [facility] Glucose 239(H) 70 - 199 mg/dL [facility] Comment: Interpretive Data Fasting glucose [...] 2022. Calcium 8.3(L) 8.5 - 10.3 mg/dL [facility] Blood 02/23/2024 6:31 AM CDT 02/23/2024 7:19 AM CDT Josefa Taylor NP LAB BLOOD ORDERABLES Pilar l Result Performing Organization Address [facility] Co de Phone Number [address] [address] * POCT glucose (02/22/2024 7:17 PM CDT) Glucose, POC 186 70 - 199 mg/dL Glucose comment 1 Use This Result [facility] Glucose comment 2 RN/MD Notified [facility] Blood 02/22/2024 7:17 PM CDT 02/22/2024 7:17 PM CDT Corbin Cole MD LAB POCT ORDERABLES - DEVICE Final Result Performing Organization Address [facility] de Phone Number [address] [address] * POCT glucose (02/22/2024 5:21 PM CDT) [facility] Glucose, POC 176 70 - 199 mg/dL Blood 02/22/2024 5:21 PM CDT 02/22/2024 5:21 PM CDT Corbin Cole MD LAB POCT ORDERABLES - DEVICE Final Result Performing Organization Address [facility] de Phone Number [address] [address] * Strep pneumoniae antigen, urine Urine (02/22/2024 3:05 PM CDT) [facility] S. pneumoniae Ag Negative Negative Comment: Interpretive [...] ENERAL ORDERABLES Final Result Performing Organization Address [facility] de Phone Number [address] [address] * Legionella antigen Urine (02/22/2024 3:05 PM CDT) Legionella Ag Negative Negative Comment: Interpretive Data This test detects only Legionella pneumophila serogroup 1 antigen. Testing performed by [facility] ([phone]). Current interpretive data was last revised on 2020. Testing performed by: [facility], [address] [place]., [address] Urine 02/22/2024 3:05 PM CDT 02/22/2024 7:06 PM CDT Corbin Cole MD LAB MICROBIOLOGY - G ENERAL ORDERABLES Final Result Performing Organization Address [facility] de Phone Number [place] [address] [place] [address] * MRSA Only (Staphylococcus aureus) PCR Nasal (02/22/2024 3:05 PM CDT) PCR Scrn, Methicillin resistant Staphylococcus aureus (MRSA) Not Detected Not Detected Comment: Interpretive Data Testing performed using Nucleic Acid Amplification with the [employer] Xpert MRSA NxG Assay. This assay detects target DNA from mecA, mecC and the SCCmec insertion site of Staphylococcus aureus using Real-Time PCR and has been cleared by the FDA. Performance characteristics have been verified by the [facility]. Current Interpretive Data was last revised on 2023 Nasal 02/22/2024 3:05 PM CDT 02/22/2024 3:30 PM CDT Corbin Cole MD LAB MICROBIOLOGY - G ENERAL ORDERABLES Final Result ZULEMA CHAVEZ [address] [facility] Department [place] [address] * Respiratory pathogen panel Nasopharyngeal (02/22/2024 3:05 PM CDT) Influenza A RNA Not Detected Not Detected Comment:Testing performed by : [facility], [address] [place] [address] Influenza B RNA Not Detected Not Detected ZULEMA Comment:Testing performed by : [facility], [address] [place]., [address] RSV RNA Not Detected Not Detected ZULEMA Comment:Testing performed by : [facility], [address] [place]., [address] COVID-19 RNA Not Detected Not Detected ZULEMA Comment:Testing performed by : [facility], [address] [place]., [address] Coronavirus 229E RNA Not Detected Not Detected ZULEMA Comment:Testing performed by : [facility], [address] [place]., [address] Coronavirus HKU1 RNA Not Detected Not Detected ZULEMA Comment:Testing performed by : [facility], [address] [place]., [address] Coronavirus NL63 RNA Not Detected Not Detected ZULEMA Comment:Testing performed by : [facility], [address] [place]., [address] Coronavirus OC43 RNA Not Detected Not Detected ZULEMA Comment:Testing performed by : [facility], [address] [place]., [address] Adenovirus DNA Not Detected Not Detected ZULEMA Comment:Testing performed by : [facility], [address] [place]., [address] Metapneumovirus RNA Not Detected Not Detected [facility] Comment:Testing performed by : [facility], [address] [place]., [address] Rhinovirus/Enterov irus RNA Not Detected Not Detected [facility] Comment:Testing performed by : [facility], [address] [facility], [address] Parainfluenza 1 RNA Not Detected Not Detected [facility] Comment:Testing performed by : [facility], [address] [facility], [address] Parainfluenza 2 RNA Not Detected Not Detected [facility] Comment:Testing performed by : [facility], [address] [facility], [address] Parainfluenza 3 RNA Not Detected Not Detected [facility] Comment:Testing performed by : [facility], [address] [facility], [address] Parainfluenza 4 RNA Not Detected Not Detected [facility] Comment:Testing performed by : [facility], [address] [facility], [address] B. pertussis DNA Not Detected Not Detected [facility] Comment:Testing performed by : [facility], [address] [facility], [address] B. parapertussis DNA Not Detected Not Detected [facility] Comment:Testing performed by : [facility], [address] [place] [address]., [address] C. pneumoniae DNA Not Detected Not Detected [facility] Comment:Testing performed by : [facility], [address] [place] [address], [address] M. pneumoniae DNA Not Detected Not Detected [facility] Comment:Testing performed by : [facility], [address] [facility], [address] Nasopharyngeal 02/22/2024 3: 05 PM CDT 02/22/2024 4:56 PM CDT Narrative [facility] - 02/22/2024 5:56 PM CDT Is the Patient experiencing symptoms consistent with COVID?->Yes Surveillance testing for transplant patient?->No ??Interpretive Data The [employer] FilmArray Respiratory Panel (RP2.1) assay is a [...] assay has FDA clearance for testing of EMB[employer] SOFTWARE DEVELOPER swabs. ??The performance of additional specimen types has been assessed by the performing laboratory. ??The performance characteristics of this assay have been determined by [facility] Molecular Infectious Disease Laboratory. Current interpretive data was last revised on 22. us Corbin Cole MD LAB MICROBIOLOGY - G ENERAL ORDERABLES Final Result Performing Organization Address City/[facility]/ZIP Co de Phone Number ZULEMA [address] [place] [address] * Lactate (02/22/2024 2:27 PM CDT) Lactate 2.0 0.7 - 2.0 mmol/L Blood 02/22/2024 2:27 PM CDT 02/22/2024 2:31 PM CDT Corbin Cole MD LAB BLOOD ORDERABLES Final Result Performing Organization Address City/[facility] Phone Number ZULEMA [address] [address] * XR Chest PA Lateral 2 Views [...] D: ??02/22/2024 2:09 PM T: Report ID: [id number] Reading Location: ??[id number] Procedure Note Dallas Gonzalez MD - 02/22/2024 [...] Dallas Gonzalez M.D. KR T: Report ID: [id number] Reading Location: [id number] Corbin Cole MD IMG XR PROCEDURES Fi nal Result * (ABNORMAL) POCT glucose (02/22/2024 11:38 AM CDT) Glucose, POC 247(H) 70 - 199 mg/dL Glucose comment 1 Use This Result ZULEMA CHAVEZ Blood 02/22/2024 11:3 8 AM CDT 02/22/2024 11:38 AM CDT Corbin Cole MD LAB POCT ORDERABLES - DEVICE Final Result ZULEMA [address] [facility] Department [place] [address] * (ABNORMAL) Blood culture Blood (02/22/2024 10:26 AM CDT) Direct Specimen Exam Stain: Gram Positive Cocci in clusters Time to culture positivity (aerobic media): 36.2 hours Comment:Testing performed by : [facility], [address] [facility] [place]., [address] Report Final Report: Staphylococcus aureus For susceptibility results, refer to accession number [id number] on the blood culture from 02/22/2024 (.) ZULEMA CHAVEZ Comment:Testing performed by : [facility], [address] [place] [address] Organism STAPHYLOCOCCUS AUREUS ZULEMA CHAVEZ Blood 02/22/2024 [...] organism identification may be performed using the [employer]comigene Gram-Positive Blood Culture Assay. This assay detects microbial DNA in positive blood culture broth via hybridization of target DNA to capture oligonucleotides on a microarray. This assay has been cleared by the [place] Food and Drug Administration and its performance characteristics have been verified by the [facility]. 5. ?For questions about this culture, contact the Microbiology Laboratory at [phone]. Interpretive data was last revised on 2020. Corbin Cole MD LAB MICROBIOLOGY - [facility] ORDERABLES Final Result ZULEMA CHAVEZ [address] [facility] Department [place] [address] * (ABNORMAL) Blood culture Blood (02/22/2024 10:21 AM CDT) Direct Specimen Exam Molecular Analysis: Staphylococcus aureus, methicillin susceptible (MSSA) detected by the Verigene Blood Culture Nucleic Acid Test. This test does not exclude the possibility of a mixed bacterial infection. Notification of: Staphylococcus aureus, methicillin susceptible (MSSA) called to and read back by: Gareth Suárez MT ([phone]) on 02/23/2024 17:09:44 by: Anjelica Zayas MT Comment:Testing performed by : [facility], [address] [place] [address], [id number] Direct Specimen Exam Stain: Gram Positive Cocci in clusters Time to culture positivity (aerobic media): 23.8 hours Notification of: Gram Positive Cocci in clusters called to and read back by: Irish Dee MT [phone] on 02/23/2024 13:58:10 by: Quiana Pierre MLS Test result called to and read back by [email or web address] on 02/23/2024 14:08:19 by [email or web address] ZULEMA Comment:Testing performed by : [facility], [address] [place] [address]., [address] Report Final Report: Staphylococcus aureus Methicillin susceptible (MSSA) by penicillin binding protein 2a (PBP2a) testing. (.) ZULEMA Comment:Testing performed by : [facility], [address] [place] [address]., [address] Organism STAPHYLOCOCCUS AUREUS ZULEMA Blood 02/22/2024 10:2 1 AM CDT 02/22/2024 1:27 PM CDT Narrative [facility] - 02/29/2024 2:09 PM CDT Collection->Peripheral 1. [...] organism identification may be performed using the [employer] Gram-Positive Blood Culture Assay. This assay detects microbial DNA in positive blood culture broth via hybridization of target DNA to capture oligonucleotides on a microarray. This assay has been cleared by the [place] Food and Drug Administration and its performance characteristics have been verified by the [facility]. 5. ?For questions about this culture, contact the Microbiology Laboratory at [phone]. Interpretive data was last revised on 2020. [...] Susceptible Corbin Cole MD LAB MICROBIOLOGY - [facility] ORDERABLES Final Result ZULEMA [address] [facility] Department [place] [address] * POCT glucose (02/22/2024 7:46 AM CDT) [facility] Glucose, POC 191 70 - 199 mg/dL Glucose comment 1 Use This Result ZULEMA CHAVEZ Blood 02/22/2024 7:46 AM CDT 02/22/2024 7:46 AM CDT Corbin Cole MD LAB POCT ORDERABLES - DEVICE Final Result Performing Organization Address [facility] Co de Phone Number ZULEMA [facility] [place] [address] * eGFR (02/22/2024 5:18 AM CDT) [facility] eGFR >90 [...] ORDERABLES Pilar l Result Performing Organization Address City/[facility]/ZIP Co de Phone Number ZULEMA [address] [facility] Department [place] [address] * (ABNORMAL) CBC without differential (02/22/2024 5:18 AM CDT) [facility] WBC 17.1(H) 3.8 - 9.9 K/cumm Hgb 9.6(L) 13.0 - 17.5 g/dL [facility] Hct 28.6(L) 38.9 - 50.3 % [facility] Plt 317 150 - 400 K/cumm [facility] MPV 10.0 9.1 - 12.3 fL [facility] RBC 2.73(L) 4.30 - 5.80 M/cumm [facility] MCV 104.8(H) 81.3 - 96.4 fL [facility] MCH 35.2(H) 27.1 - 33.3 pg [facility] MCHC 33.6 32.3 - 35.7 g/dL [facility] RDW CV 15.6(H) 11.1 - 14.9 % [facility] RDW SD 59.9(H) 35.7 - 48.1 fL [facility] NRBC abs 0.03(H) 0.00 - 0.01 K/cumm [facility] Blood 02/22/2024 5:18 AM CDT 02/22/2024 5:48 AM CDT Josefa Taylor NP LAB BLOOD ORDERABLES Pilar armas Result [facility] [address] [facility] Department [place] [address] * (ABNORMAL) Basic metabolic panel (02/22/2024 5:18 AM CDT) [facility] Sodium 134(L) 135 - 145 mmol/L Potassium, pl 3.7 3.3 - 4.9 mmol/L [facility] Chloride 97 97 - 110 mmol/L [facility] CO2 29 22 - 32 mmol/L [facility] Anion gap 8 2 - 15 mmol/L [facility] BUN 18 6 - 25 mg/dL [facility] Creatinine 0.75(L) 0.80 - 1.30 mg/dL [facility] Glucose 235(H) 70 - 199 mg/dL [facility] Comment: Interpretive Data Fasting glucose [...] ORDERABLES Pilar l Result Performing Organization Address [facility] Co de Phone Number LESLIE[address] [place] [address] * (ABNORMAL) POCT glucose (02/22/2024 4:24 AM CDT) Glucose, POC 279(H) 70 - 199 mg/dL Glucose comment 1 Use This Result [facility] Blood 02/22/2024 4:24 AM CDT 02/22/2024 4:24 AM CDT Result [facility] Corbin Cole MD LAB POCT ORDERABLES - DEVICE Final Result Performing Organization Address City/[facility] Co de Phone Number [address] [place] [address] * (ABNORMAL) POCT glucose (02/22/2024 1:58 AM CDT) Glucose, POC 272(H) 70 - 199 mg/dL Glucose comment 1 Use This Result [facility] Glucose comment 2 Will Notify Nurse [facility] Blood 02/22/2024 1:58 AM CDT 02/22/2024 1:58 AM CDT Result [facility] Corbin Cole MD LAB POCT ORDERABLES - DEVICE Final Result Performing Organization Address [facility] Co de Phone Number ZULEMA [address] [place] [address] * (ABNORMAL) POCT glucose (02/22/2024 12:04 AM CDT) Glucose, POC 262(H) 70 - 199 mg/dL Glucose comment 1 Use This Result ZULEMA Blood 02/22/2024 12:0 4 AM CDT 02/22/2024 12:04 AM CDT Corbin Cole MD LAB POCT ORDERABLES - DEVICE Final Result Performing Organization Address [facility] Co de Phone Number ZULEMA [address] [address] * POCT glucose (02/21/2024 7:44 PM CDT) Glucose, POC 184 70 - 199 mg/dL Glucose comment 1 Use This Result [facility] Blood 02/21/2024 7:44 PM CDT 02/21/2024 7:44 PM CDT Corbin Cole MD LAB POCT ORDERABLES - DEVICE Final Result Performing Organization Address [facility] Co de Phone Number ZULEMA [address] [place] [address] * (ABNORMAL) POCT glucose (02/21/2024 6:26 PM CDT) Glucose, POC 217(H) 70 - 199 mg/dL Glucose comment 1 Use This Result ZULEMA Glucose comment 2 RN/MD Notified [facility] Blood 02/21/2024 6:26 PM CDT 02/21/2024 6:26 PM CDT Corbin Cole MD LAB POCT ORDERABLES - DEVICE Final Result Performing Organization Address [facility] de Phone Number ZULEMA [address] [place] [address] * POCT glucose (02/21/2024 4:04 PM CDT) [facility] Glucose, POC 118 70 - 199 mg/dL Glucose comment 1 Use This Result [facility] Glucose comment 2 RN/MD Notified [facility] Blood 02/21/2024 4:04 PM CDT 02/21/2024 4:04 PM CDT Corbin Cole MD LAB POCT ORDERABLES - DEVICE Final Result Performing Organization Address [facility] de Phone Number ZULEMA [address] [place] [address] * (ABNORMAL) POCT glucose (02/21/2024 11:27 AM CDT) [facility] Glucose, POC 330(H) 70 - 199 mg/dL Blood 02/21/2024 11:2 7 AM CDT 02/21/2024 11:27 AM CDT Corbin Cole MD LAB POCT ORDERABLES - DEVICE Final Result Performing Organization Address [facility] de Phone Number LESLIE[address] [place] [address] * eGFR (02/21/2024 8:37 AM CDT) [facility] eGFR >90 [...] CDT 02/21/2024 8:52 AM CDT Josefa Taylor [employer] LAB BLOOD ORDERABLES Pilar armas Result [facility] [address] [facility] [place] [address] * (ABNORMAL) CBC without differential (02/21/2024 8:37 AM CDT) Pathologist [facility] WBC 9.6 3.8 - 9.9 K/cumm Hgb 12.3(L) 13.0 - 17.5 g/dL [facility] Hct 37.7(L) 38.9 - 50.3 % [facility] Plt 392 150 - 400 K/cumm [facility] MPV 9.9 9.1 - 12.3 fL [facility] RBC 3.50(L) 4.30 - 5.80 M/cumm [facility] MCV 107.7(H) 81.3 - 96.4 fL [facility] MCH 35.1(H) 27.1 - 33.3 pg [facility] MCHC 32.6 32.3 - 35.7 g/dL [facility] RDW CV 15.5(H) 11.1 - 14.9 % [facility] RDW SD 61.1(H) 35.7 - 48.1 fL [facility] NRBC abs 0.00 0.00 - 0.01 K/cumm [facility] Blood 02/21/2024 8:37 AM CDT 02/21/2024 8:52 AM CDT [facility] LAB BLOOD ORDERABLES Pilar l Result Performing Organization Address [facility] Co de Phone Number [facility] [address] [facility] [place] [address] * (ABNORMAL) Basic metabolic panel (02/21/2024 8:37 AM CDT) Pathologist [facility] Sodium 137 135 - 145 mmol/L Potassium, pl 4.0 3.3 - 4.9 mmol/L [facility] Chloride 98 97 - 110 mmol/L [facility] CO2 29 22 - 32 mmol/L [facility] Anion gap 10 2 - 15 mmol/L [facility] BUN 15 6 - 25 mg/dL [facility] Creatinine 0.54(L) 0.80 - 1.30 mg/dL [facility] Glucose 205(H) 70 - 199 mg/dL [facility] Comment: Interpretive Data Fasting glucose [...] 2022. Calcium 8.9 8.5 - 10.3 mg/dL [facility] Blood 02/21/2024 8:37 AM CDT 02/21/2024 8:52 AM CDT [facility] BLOOD ORDERABLES Pilar l Result Performing Organization Address [facility]/ZIP Co de Phone Number [address] [address] * Magnesium (02/21/2024 8:37 AM CDT) Pathologist [facility] Magnesium 2.1 1.4 - 2.5 mg/dL Blood 02/21/2024 8:37 AM CDT 02/21/2024 8:52 AM CDT Josefa Taylor NP LAB BLOOD ORDERABLES Pilar l Result Performing Organization Address [facility] Co de Phone Number [address] [address] * POCT glucose (02/21/2024 8:01 AM CDT) [facility] Glucose, POC 174 70 - 199 mg/dL Blood 02/21/2024 8:01 AM CDT 02/21/2024 8:01 AM CDT Corbin Cole MD LAB POCT ORDERABLES - DEVICE Final Result Performing Organization Address [facility] de Phone Number [address] [address] * (ABNORMAL) POCT glucose (02/20/2024 8:39 PM CDT) [facility] Glucose, POC 271(H) 70 - 199 mg/dL Glucose comment 1 Use This Result [facility] Glucose comment 2 RN/MD Notified [facility] Blood 02/20/2024 8:39 PM CDT 02/20/2024 8:39 PM CDT Pacheco Quintanilla MD LAB POCT ORDERABLES - DEV ICE Final Result Performing Organization Address [facility] Co de Phone Number [address] [address] * (ABNORMAL) POCT glucose (02/20/2024 7:25 PM CDT) Glucose, POC 203(H) 70 - 199 mg/dL Glucose comment 1 Use This Result [facility] Glucose comment 2 RN/MD Notified [facility] Blood 02/20/2024 7:25 PM CDT 02/20/2024 7:25 PM CDT Pacheco Quintanilla MD LAB POCT ORDERABLES - DEV ICE Final Result Performing Organization Address City/[facility] Co de Phone Number [address] Department [place] [address] * POCT glucose (02/20/2024 6:34 PM CDT) Glucose, POC 181 70 - 199 mg/dL Blood 02/20/2024 6:34 PM CDT 02/20/2024 6:34 PM CDT Pacheco Quintanilla MD LAB POCT ORDERABLES - DEV ICE Final Result Performing Organization Address [facility] Co de Phone Number [address] [place] [address] * Surgical pathology (02/20/2024 12:58 PM CDT) Tissue (Gastric/Stomach biopsy) 02/20/2024 12:58 PM CDT Tissue (Esophageal biopsy) 02/20/2024 12:59 PM CDT Narrative PATHOLOGY [facility] - 02/27/2024 12:23 PM CDT [facility] Department of Pathology [address] [place] [id number] ?? Note to Patients: ??This report may [...] 58) Gender: ??M Address: ??[address] [place], [place] [address] [facility] #: [id number] Service: Medical Location: Patient Type: B INPATIENT ? Taken: 02/20/2024 Received: 02/20/2024 Accessioned: [...] 0. ?? jjmhb/02/20/2024 14:23 DOMITILA Conrad, PA ([facility]) Microscopic slide review and interpretation for this case was performed at [facility], Department of Surgical Pathology, [address] [facility], [place] [id number], ??[place], [place] ??[address] ?? CLIA # [id number] The Herpes Simplex Virus I test was performed at [facility] Department of Surgical Pathology, [address] [place], [place] ??[address]. The Herpes Simplex Virus II test was performed at [facility] Department of Surgical Pathology, [address] [place], [place] ??[address]. The Cytomegalovirus test was performed at [facility], Department of Surgical Pathology, [address] [place], [place] ??[address]. us Gee Mcdaniel MD LAB PATHOLO GY ORDERABLES Final Result Performing Organization Address City/[facility]/ZIP Co de Phone Number [facility] * POCT glucose (02/20/2024 12:43 PM CDT) Glucose, POC 126 70 - 199 mg/dL Blood 02/20/2024 12:4 3 PM CDT 02/20/2024 12:43 PM CDT us Pacheco Quintanilla MD LAB POCT ORDERABLES - DEV ICE Final Result Performing Organization Address City/[facility]/ZIP Co de Phone Number [facility] [address] [facility] Department [place] [address] * EGD (02/20/2024 12:37 PM CDT) Anatomical Region Laterality Modality Other Narrative Procedure Note Gee Mcdaniel MD - 02/20/2024 12:37 PM CDT [facility] DORAL GI ENDOSCOPY Patient Name: Bri Jones Procedure Date: 02/20/2024 12:37 PM Date of : 1965 Admit Type: Inpatient Age: 58 Gender: Male Attending MD: Gee Ravi M.D. Room: [facility] ENDOSCOPY ROOM [facility] Note Status: Finalized Procedure: Upper GI [...] On: 02/20/2024 12:37 PM Recognized by the [employer] for promoting quality [...] LAB BLOOD ORDERABLES Pilar armas Result [facility] [address] [facility] Department [place] [address] * eGFR (02/20/2024 11:39 AM [...] ORDERABLES Pilar l Result Performing Organization Address [facility] de Phone Number [place] [phone] [facility] [employer] [place] [address] * T4, free (02/20/2024 11:39 AM CDT) Free T4 1.13 0.90 - 1.70 ng/dL Blood 02/20/2024 11:3 9 AM CDT 02/20/2024 11:44 AM CDT Narrative [facility] - 02/20/2024 1:50 PM CDT This test was reflexed from a TSH result. [facility] BLOOD ORDERABLES Pilar l Result Performing Organization Address [facility] de Phone Number [address] [place] [address] * (ABNORMAL) Thyroid Function Clark (02/20/2024 11:39 AM CDT) TSH 0.17(L) 0.30 - 4.20 mcIUnit/mL Blood 02/20/2024 11:3 9 AM CDT 02/20/2024 11:44 AM CDT Josefaflori Taylor [employer] SOFTWARE DEVELOPER LAB BLOOD ORDERABLES Pilar l Result Performing Organization Address [facility] de Phone Number [facility] [address] [address] * (ABNORMAL) Hemoglobin A1c (02/20/2024 11:39 AM CDT) Pathologist [facility] Hgb A1C 6.7(H) 4.0 - 5.6 % Estimated Average Glucose 146 mg/dL [facility] Comment: The ADA recommends reporting an estimated Average Glucose (eAG) with all Hemoglobin A1c results using the equation derived from a study of 507 normal and diabetic adults. ??Minority populations were underrepresented and children were not included. ?? (Diabetes Care 31:4844-7929, 2008). ??The eAG is not equivalent to a fasting glucose. Blood 02/20/2024 11:3 9 AM CDT 02/20/2024 11:44 AM CDT Josefa Taylor NP LAB BLOOD ORDERABLES Pilar l Result Performing Organization Address [facility] de Phone Number [address] [address] * (ABNORMAL) CBC without differential (02/20/2024 11:39 AM CDT) [facility] WBC 11.9(H) 3.8 - 9.9 K/cumm Hgb 12.0(L) 13.0 - 17.5 g/dL [facility] Hct 35.8(L) 38.9 - 50.3 % [facility] Plt 359 150 - 400 K/cumm [facility] MPV 10.0 9.1 - 12.3 fL [facility] RBC 3.41(L) 4.30 - 5.80 M/cumm [facility] MCV 105.0(H) 81.3 - 96.4 fL [facility] MCH 35.2(H) 27.1 - 33.3 pg [facility] MCHC 33.5 32.3 - 35.7 g/dL [facility] RDW CV 16.1(H) 11.1 - 14.9 % [facility] RDW SD 62.1(H) 35.7 - 48.1 fL [facility] NRBC abs 0.02(H) 0.00 - 0.01 K/cumm [facility] Blood 02/20/2024 11:3 9 AM CDT 02/20/2024 11:44 AM CDT Josefa Taylor NP LAB BLOOD ORDERABLES Pilar armas Result [facility] [address] [facility] Department [place] [address] * (ABNORMAL) Basic metabolic panel (02/20/2024 11:39 AM CDT) Sodium 138 135 - 145 mmol/L Potassium, pl 4.0 3.3 - 4.9 mmol/L [facility] Chloride 99 97 - 110 mmol/L [facility] CO2 31 22 - 32 mmol/L [facility] Anion gap 8 2 - 15 mmol/L [facility] BUN 17 6 - 25 mg/dL [facility] Creatinine 0.64(L) 0.80 - 1.30 mg/dL [facility] Glucose 138 70 - 199 mg/dL [facility] Comment: Interpretive Data Fasting glucose [...] 2022. Calcium 8.6 8.5 - 10.3 mg/dL [facility] Blood 02/20/2024 11:3 9 AM CDT 02/20/2024 11:44 AM CDT Josefaflori Taylor [employer] SOFTWARE DEVELOPER LAB BLOOD ORDERABLES Pilar l Result Performing Organization Address [facility] Co de Phone Number ZULEMA [address] [address] * Magnesium (02/20/2024 11:39 AM CDT) Magnesium 1.9 1.4 - 2.5 mg/dL Blood 02/20/2024 11:3 9 AM CDT 02/20/2024 11:44 AM CDT Josefaflori DewittBrandon NP LAB BLOOD ORDERABLES Pilar l Result Performing Organization Address [facility] Phone Number [address] [address] documented in this encounter Visit Diagnoses Diagnosis Dysphagia- Primary Dysphagia, unspecified type Food impaction of esophagus, initial encounter 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) CAP (community acquired pneumonia) Pneumonia, organism unspecified Food impaction of esophagus Dysphagia, unspecified type Food impaction of esophagus, initial encounter documented in this encounter Admitting Diagnoses Diagnosis [...] 2.5 mg, nebulization, Every 6 hours PRN (correspondence coordinator), wheezing, Starting on Angy 03/05/24 at 1342 Given 03/05/2024 7:51 PM CDT 2.5 mg albuterol HFA (PROVENTIL HFA,VENTOLIN HFA,PROAIR HFA) 90 mcg/actuation inhaler 2 puff 2 puff, inhalation, Every 6 hours while awake (correspondence coordinator), First dose (after last modification) on Sat03/03/24 [...] puff 2 puff, inhalation, 2 times daily (correspondence coordinator), First dose on Sat02/20/24 at 2000, Rinse [...] Call MD for each episode of hypoglycemia. DIRECTOR DIGITAL ADVERTISING STATES GLUTOSE-15 CONTAINS GLUCOSE 40% W/W (50% [...] 03/06/2024 8:38 AM CDT 40 mg peg [id number]-lmcmuslz (ARTIFICAL TEARS) 1-0.2-0.2 % ophthalmic solution 1 drop 1 drop, each eye, 3 times daily PRN, dry eyes, Starting on 02/29/24 at 1227 Given 02/29/2024 4:22 PM CDT 1 drop ramelteon (ROZEREM) tablet 8 mg 8 mg, oral, Nightly PRN, sleep, Starting on Angy 02/20/24 at 1126, Indications: Sleep-Onset InsomniaIndications:Sleep-Onset Insomnia Given [...] 8:06 AM CDT 20 mg sodium chloride 0.9% flush 0.5-20 mL 0.5-20 [...] nightly), First dose (after last modification) on 02/24/24 at 1200, For 60 days Given 03/07/2024 [...] inhaler 2 puff 2 puff, inhalation, Daily (correspondence coordinator), First dose on Sat02/21/24 at 0900, Trelegy [...] with long-term current use of insulin ([facility]) 1 Device 3 (three) times a day [...] capsuleIndications:AML (acute myeloid leukemia) in remission ([facility]),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[facility]),Vitamin D deficiency TAKE 1 CAPSULE BY MOUTH ONCE A WEEK DIRECTED Error 10/24/2021 02/20/2024 gabapentin (NEURONTIN) 300 mg capsuleIndications:AML (acute myeloid leukemia) in remission ([facility]) TAKE ONE CAPSULE BY MOUTH FOUR TIMES DAILY @[id number]-[id number]-9PM Error 05/20/2023 02/20/2024 insulin glargine (LANTUS, BASAGLAR) 100 unit/mL (3 mL) pen for injectionIndications:Typ e 2 diabetes mellitus with hyperosmolarity 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, with long-term current use of insulin ([facility]) INJECT 15 UNITS NIGHTLY SUB-Q. 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 TDD OF 35 UNITS. 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),Zakiv-vrwkbo-agom disease (HCC) TAKE TWO TABLETS BY MOUTH [...] mg total) by mouth daily with breakfast insulin lispro (HumaLOG, ADMELOG) 100 unit/mL pen [...] by mouth 4 (four) times a day @[id number]-8SP-9PM 4 acyclovir (ZOVIRAX) 400 mg tablet Take [...] Ann Garcia)1616 (Given - Provider: Aditi Hazel RN)212 (Given - Provider: Toya Albright, BECKI) 0838 (Given - Provider: Sidra Parks, BECKI)1633 (Given - Provider: Hayley Dykes RN)204 (Given - Provider: Bonnie Wick, BECKI) 0902 (Given - Provider: Ethel De Jesus, BECKI) albuterol HFA (PROVENTIL HFA,VENTOLIN HFA,PROAIR HFA) 90 mcg/actuation inhaler 2 puff 2 puff, inhalation, Every 6 hours while awake (correspondence coordinator), First dose (after last modification) on Sat03/03/24 at 0900 0830 (Given - Provider: Page Bunch, STOPPING BUILDER)1340 (Not Given - Provider: Page Bunch, STOPPING BUILDER - Reason: Contraindicated)1950 (Not Given - Provider: Anaid Marsh, STOPPING BUILDER - Reason: Patient/family refused - Comment: Pt wanted the albuterol neb because he said it worked better for him) 0810 (Given - Provider: Page Bunch, STOPPING BUILDER)1351 (Given - Provider: Page Bunch, STOPPING BUILDER)2103 (Given - Provider: Tasia Abreu, TRANSPORTATION DISPATCH MANAGER) 0702 (Given - Provider: Pat Busby, STOPPING BUILDER)1412 (Given - Provider: Pat Busby, STOPPING BUILDER) atorvastatin (LIPITOR) tablet 40 mg 40 mg, [...] Mary Ann Garcia)1615 (Given - Provider: Aditi Hazel RN)212 (Given - Provider: Toya Albright RN) 0837 (Given - Provider: Sidra Parks, RN)1633 (Given - Provider: Hayley Dykes, RN)2049 (Given - Provider: Bonnie Wick, RN) 0902 (Given - Provider: Ethel De Jesus, RN) budesonide-formoteroL (SYMBICORT) 160-4.5 mcg/actuation inhaler 2 puff(Linked Group 1) 2 puff, inhalation, 2 times daily (correspondence coordinator), First dose on Sat02/20/24 at 2000, Rinse mouth with water after use. Do not swallow. 0825 (Given - Provider: Page Bunch, STOPPING BUILDER)1950 (Given - Provider: Anaid Marsh STOPPING BUILDER) 0810 (Given - Provider: Page Bunch, STOPPING BUILDER)2103 (Given - Provider: Tasia Abreu, TRANSPORTATION DISPATCH MANAGER) 0703 (Given - Provider: Pat Busby, STOPPING BUILDER) cefepime (MAXIPIME) 1,000 mg in sodium chloride [...] BECKI)2322 (New Bag - Provider: Toya Albright, RN) 0508 (New Bag - Provider: Toya Albright, RN)1227 (New Bag - Provider: Sidra Parks, RN)1756 (New Bag - Provider: Hayley Dykes, BECKI)2329 (New Bag - Provider: Bonnie Wick, BECKI) 0523 (New Bag - Provider: Bonnie Wick, RN)1240 (New Bag - Provider: Ethel De Jesus, BECKI) gabapentin (NEURONTIN) capsule 300 mg 300 mg, oral, 4 times daily, First dose (after last reorder) on 02/19/24 at 1745 0806 (Given - Provider: Mary Ann Garcia)1217 (Given - Provider: Mary Ann Garcia)1616 (Given - Provider: Aditi Hazel, BECKI)2122 (Given - Provider: Toya Albright, BECKI) 0838 (Given - Provider: Sidra Parks, BECKI)1225 (Given - Provider: Sidra Parks, RN)1633 (Given - Provider: Hayley Dykes, BECKI)2048 (Given - Provider: Bonnie Wick, BECKI) 0902 [...] RN) 0837 (Given - Provider: Sidra Parks, BECKI)2047 (Given - Provider: Bonnie Wick, BECKI) 0902 [...] times daily with meals, First dose on [facility] 02/29/24 at 0815, Blood glucose mg/dL: 149 [...] parameters not met)1743 (Given - Provider: Aditi Haezl RN) 0839 (Given - Provider: Sidra Parks, BECKI)1235 (Given - Provider: Sidra Parks RN)1757 (Given - Provider: Hayley Dykes, BECKI) 0830 (Not Given - Provider: Ethel De Jesus RN - Reason: Order parameters not met)1241 (Given - Provider: Ethel De Jesus, BECKI) montelukast (SINGULAIR) tablet 10 mg 10 mg, oral, Nightly, First dose on Angy 02/20/24 at 2100 2123 (Given - Provider: Toya Albright, BECKI) 2048 [...] RN) 0839 (Given - Provider: Sidra Parks RN)1633 (Given - Provider: Hayley Dykes, RN) 0902 [...] (Medication Applied - Provider: Sidra Parks RN) 0903 (Medication Applied - Provider: Ethel De [...] otherwise manipulate tablet/capsule., Indications: Stress Ulcer Prophylaxis 08 (Given - Provider: Mary Ann Garcia)2122 (Given - Provider: Toya Albright RN) 0838 (Given - Provider: Sidra Parks RN)204 (Given - Provider: Bonnie Wick, BECKI) 09 [...] 08 (Given - Provider: Mary Ann Garcia) 0838 [...] Aditi Hazel, BECKI)2222 (Given - Provider: Toya Albright, BECKI) 0508 (Given - Provider: Toya Albright, BECKI)1231 (Given - Provider: Sidra Parks RN)2049 (Given - Provider: Bonnie Wick, BECKI) 0524 (Given - Provider: Bonnie Wick, BECKI)1400 (Due) sodium chloride 0.9% flush 5-10 mL 5-10 mL, intra-catheter, Every 12 hours scheduled, First dose on 02/29/24 at 0900, Flush volume based on line type, size, and protocol. 0809 (Given - Provider: Mary Ann Garcia)2123 (Given - Provider: Toya Albright RN) 0844 (Given - Provider: Sidra Parks RN)2049 (Given - Provider: Bonnie Wick, BECKI) 0904 (Given - Provider: Ethel De Jesus, BECKI - Comment: additional extension tubing present) sucralfate (CARAFATE) 100 mg/mL oral suspension 1 g 1 g, oral, 4 times daily (with meals and nightly), First dose (after last modification) on 02/24/24 at 1200, For 60 days 0806 (Given - Provider: Mary Ann Garcia)1217 (Given - Provider: Mary Ann Garcia)1743 (Given - Provider: Aditi Hazel, BECKI)2124 (Given - Provider: Toya Albright RN) 0839 (Given - Provider: Sidra Parks, BECKI)1226 (Given - Provider: Sidra Parks, BECKI)1756 (Given - Provider: Hayley Dykes RN)204 (Given - Provider: Bonnie Wick, BECKI) 0902 (Given - Provider: Ethel De Jesus, BECKI)1240 (Given - Provider: Ethel De Jesus, BECKI) tacrolimus immediate-release capsule 0.5 mg 0.5 mg, oral, Every other day, First dose on Sat02/21/24 at 0900, Avoid grapefruit juice 0837 (Given - Provider: Sidra Parks RN) tiotropium bromide (SPIRIVA RESPIMAT) 2.5 mcg/actuation inhaler 2 puff(Linked Group 1) 2 puff, inhalation, Daily (correspondence coordinator), First dose on Sat02/21/24 at 0900, Trelegy subs to Symbicort + Spiriva 0830 (Given - Provider: Page Bunch, STOPPING BUILDER) 0810 (Given - Provider: Page Bunch, STOPPING BUILDER) 0703 (Given - Provider: Pat Busby, STOPPING BUILDER) voriCONAZOLE (VFEND) tablet 200 mg 200 mg, oral, 2 times daily, First dose (after last reorder) on Angy 02/20/24 at 1830, Indications: Prophylaxis, Medical 0808 (Given - Provider: Mary Ann Garcia)1616 (Given - Provider: Aditi Hazel RN) 0838 (Given - Provider: Sidra Parks, BECKI)1633 (Given - Provider: Hayley Dykes RN) 0902 (Given - Provider: Ethel De Jesus, BECKI) PRN Medication Order 03/05/2024 03/06/2024 03/07/2024 acetaminophen (TYLENOL) tablet 650 mg 650 mg, oral, Every 4 hours PRN, 1st line for pain, fever, fever greater than 38.3 C, Starting on Angy 02/20/24 at 1126, Indications: Fever, Pain 1745 (Given - Provider: Aditi Hazel RN)2229 (Given - Provider: Toya Albright, BECKI) 1633 (Given - Provider: Hayley Dykes, BECKI) albuterol 2.5 mg/0.5 mL nebulizer solution 2.5 mg (CANCELED) 2.5 mg, nebulization, Every 4 hours PRN (correspondence coordinator), wheezing, Starting on 03/02/24 at 2100 1338 (Given - Provider: Page Bunch, STOPPING BUILDER) albuterol 2.5 mg/0.5 mL nebulizer solution 2.5 mg 2.5 mg, nebulization, Every 6 hours PRN (correspondence coordinator), wheezing, Starting on Sat03/05/24 at 1342 1951 (Given - Provider: Anaid Marsh, STOPPING BUILDER) Carrier Fluids for Secondary Infusion - 0.9% [...] Call MD for each episode of hypoglycemia. DIRECTOR DIGITAL ADVERTISING STATES GLUTOSE-15 CONTAINS GLUCOSE 40% W/W (50% [...] Indications: Pain 2130 (Given - Provider: Toya Albright RN) 2102 (Given - Provider: Bonnie Wick, BECKI) ondansetron (ZOFRAN) injection 4 mg(Linked Group 3) 4 mg, intravenous, Administer over 2 Minutes, Every 6 hours PRN, nausea, vomiting, if not tolerating PO, Starting on Angy 02/20/24 at 1126, Indications: Nausea and Vomiting ondansetron ODT (ZOFRAN-ODT) disintegrating tablet 4 mg(Linked Group 3) 4 mg, oral, Every 6 hours PRN, nausea, vomiting, Starting on Angy 02/20/24 at 1126, Indications: Nausea and Vomiting peg 252-irlkgfaafdxh-onakqpiq (ARTIFICAL TEARS) 1-0.2-0.2 % ophthalmic solution 1 drop 1 drop, each eye, 3 times daily PRN, dry eyes, Starting on 02/29/24 at 1227 ramelteon (ROZEREM) tablet 8 mg 8 mg, oral, Nightly PRN, sleep, Starting on Angy 02/20/24 at 1126, Indications: Sleep-Onset Insomnia 2126 (Given - Provider: Toya Albright RN) 2048 (Given - Provider: Bonnie Wick RN) sodium chloride 0.9% flush 0.5-20 mL 0.5-20 mL, intra-catheter, As needed, line care, Starting on Sat02/20/24 at 1125, Flush volume based on line [...] For 1 dose, Created by cabinet override 1951 (Given - Provider: Anaid Marsh CRTT) Linked Groups Order Group 1: budesonide-formoteroL (SYMBICORT) 160-4.5 mcg/actuation inhaler 2 puffJump to med 2 puff, inhalation, 2 times daily (correspondence coordinator), First dose on Sat02/20/24 at 2000, Rinse mouth with water after use. Do not swallow. And tiotropium bromide (SPIRIVA RESPIMAT) 2.5 mcg/actuation inhaler 2 puffJump to med 2 puff, inhalation, Daily (correspondence coordinator), First dose on Sat02/21/24 at 0900, Trelegy [...] Call MD for each episode of hypoglycemia. DIRECTOR DIGITAL ADVERTISING STATES GLUTOSE-15 CONTAINS GLUCOSE 40% W/W (50% [...] free injection 10-20 mg 1 02/29/2024 peg [id number]-rixahtsycmfu-ijhqmwl n (ARTIFICAL TEARS) 1-0.2-0.2 % ophthalmic solution 1 drop 1 02/29/2024 sodium chloride 0.9% flush 5-10 mL 1 2023 sodium chloride 0.9% flush 5-20 mL 1 2023 insulin glargine (LANTUS, SE MGLEE) 100 unit/mL injection 18 Units 1 02/28/2024 simethicone (MYLICON) 66.7 m g/mL oral drops [...] mg 02/23 predniSONE (DELTASONE) tablet 5 mg 2023 sucralfate (CARAFATE) 100 mg /mL oral [...] 2 02/21/2024 04/0 02/2024 insulin glargine (LANTUS, SE MGLEE) 100 unit/mL injection 10 Units 1 02/21/2024 insulin lispro (HumaLOG, ADM ELOG) 100 unit/mL injection 3 Units 1 02/21/2024 [...] ative free injection 25 mcg 1 02/20/2024 egizobttdca-siepldtcf-rculid er (TRELEGY ELLIPTA) 200-62.5-25 mcg inhaler 1 [...] PROVIDER 2 03/02 VERIFY INFORMED CONSENT 3 02/28/202402/2024 WEIGH PATIENT 1 02/20/2024 Consult Count Last [...] documented as of this encounter Care Teams Oyster Harvester Relationship Specialty Start Date End Date Gama Lindsay DO PCP - General Internal Medicine 02/02/21 Josué Del Valle MD PhD Medical Oncologist/Toys Inspector Medical Oncology 08/26/19 Cal Carranza DO [address] [place] [address] Paper Roller Internal Medicine 06/12/23 Halie Khan MD [address] [place] [address] Wad Lubricator Critical Care Med 06/12/23 documented as of this encounter
--- OUTSIDE RECORDS SUMMARY | 2024-11-22 10:52 | XMS_ITS | Encounter Summary ---
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) [facility] Scheduling [address] [place] [address] Phone: tel: Josué Del Valle MD PhD [address]ONE MARROW TRANSPL[address], [address] [place] [address] Phone: tel: fax: Referral ID Status Reason Start Date Expiration Date V isits Requested Visits Authorized [id number] Closed Specialty Services Required 06/05/2021 11/17/2023 99 99 Encounter Details Date Type Department Care Team (Late st Contact Info) Description 06/12/2023 11:00 AM CDT Office Visit [facility] Bone Marrow Transplant [address] [address] 7th Floor, [place] [address] Narcisa Kilgore NP [address]ARROW [facility]ANSPL[address], [address] [place] [address] 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) (Primary Dx); COPD exacerbation (HCC) Social History Tobacco Use Types Packs/Day [...] on file 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 Gender Identity Not on file Sexual Orientation Not on file documented as of this encounter Last Filed Vital Signs Vital Sign Reading Time Taken Comments Blood Pressure 106/74 06/12/2023 10:44 AM CDT Pulse 102 06/12/2023 10:44 AM CDT Temperature 36.5 ??C (97.7 ??F) 06/12/2023 1 0:44 AM CDT Respiratory Rate 17 06/12/2023 10:4 4 AM CDT Oxygen Saturation 94% 06/12/2023 10: 44 AM CDT Inhaled Oxygen Concentration - - Weight 67.5 kg (148 lb 12.8 oz) 023 10:44 AM CDT Height - - Body Mass Index 21.42 05/22/2023 4:06 PM CDT documented in this encounter Ordered Prescriptions Prescription Sig Dispense Quantity Refills Last Filled Start Date End Date levoFLOXacin (LEVAQUIN) 500 mg tabletIndications: COPD Exacerbation Take 1 tablet (500 mg total) by mouth daily for 10 days 10 tablet 06/12/2023 06/22/2023 documented in this encounter Progress Notes * Narcisa Kilgore NP - 06/12/2023 11:00 AM CDT [facility] DEPARTMENT OF MEDICINE - SECTION OF BMT & LEUKEMIA [address] [place] [address]- PHONE: FAX: Brady Jones 1965 06/12/2023 Oncology History Overview Note DIAGNOSIS: 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 TREATMENT HISTORY: Induction with 7+3 and HiDAC consolidation x3. Decitabine maintenance on the CALGB 27521 protocol. Relapsed disease, status post AMD/[facility]. 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 TRANSPLANT HISTORY: Status post an allogeneic transplant with busulfan and Cytoxan on the [facility] allogeneic study with hissister, 08/27 match; with day 0 on 11/09/2009. 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 No c/o n/v/f/cp/sob no cough. 2 months ago prescribed Levaquin for COPD exacerbation. ALLERGIES: Allergies Allergen Reactions Adhesive Redness burn Objective Vitals BP 106/74 (BP Location: Right arm) Pulse 102 Temp 36.5 ??C (97.7 ??F) (Transdermal) Resp 17 Wt 67.5 kg (148 lb 12.8 oz) SpO2 94% BMI 21.42 kg/m?? Physical exam: Performance Status: 100 General: Well developed, well nourished, and in no acute distress. HEENT: Normocephalic, atraumatic. Sclerae are anicteric. Oropharynx is clear. Mucus membranes are moist. Neck: Supple. No cervical or supraclavicular lymphadenopathy. Lungs: Clear to auscultation bilaterally with good breath sounds. No wheezing, rales, or rhonchi. CVS: Regular rate and rhythm. S1, S2. No murmur, click, gallop, or rub. Abdomen: Soft, nontender, and nondistended. Normoactive bowel sounds. No hepatosplenomegaly. Extremities: Warm and well perfused. No clubbing, cyanosis, or edema. Skin: Warm, dry, and intact without bruising or rashes. LAB/RADIOLOGY/DIAGNOSTIC REVIEW: CBC: Lab Results Component Value Date/Time WBC 9.5 06/12/2023 10:23 AM WBC 13.9 (H) 02/18/2023 09:56 AM HGB 14.3 06/12/2023 10:23 AM HGB 13.7 (L) 02/18/2023 09:56 AM HGB 13.9 01/12/2022 11:33 AM HCT 42.0 06/12/2023 10:23 AM HCT 39.9 (L) 02/18/2023 09:56 AM LABPLAT 349 06/12/2023 10:23 AM LABPLAT 367 02/18/2023 09:56 AM MCV 105.4 (H) 06/12/2023 10:23 AM MCV 104.2 (H) 02/18/2023 09:56 AM MCH 36.0 (H) 06/12/2023 10:23 AM MCH 35.7 (H) 02/18/2023 09:56 AM NEUTROABS 7.0 (H) 06/12/2023 10:23 AM NEUTROABS 8.1 (H) 02/18/2023 09:56 AM NEUTROABS 1.73 12/13/2017 03:18 AM NEUTROABS 0.87 (L) 12/12/2017 03:40 AM CMP: Lab Results Component Value Date/Time SODIUM 141 06/12/2023 10:23 AM SODIUM 140 02/18/2023 09:56 AM POTASSIUM 4.7 06/12/2023 10:23 AM POTASSIUM 4.5 02/18/2023 09:56 AM CO2 27 06/12/2023 10:23 AM CO2 27 03/25/2023 12:40 PM CO2 29 02/18/2023 09:56 AM BUNSER 16 06/12/2023 10:23 AM BUNSER 11 02/18/2023 09:56 AM GLUCOSE 109 06/12/2023 10:23 AM GLUCOSE 126 (H) 03/25/2023 12:40 PM GLUCOSE 140 02/18/2023 09:56 AM CREATININE 0.87 06/12/2023 10:23 AM CREATININE 0.84 03/25/2023 12:40 PM CREATININE 0.90 02/18/2023 09:56 AM CALCIUM 10.2 06/12/2023 10:23 AM CALCIUM 9.7 03/25/2023 12:40 PM CALCIUM 10.1 02/18/2023 09:56 AM CHLORIDE 99 06/12/2023 10:23 AM CHLORIDE 100 02/18/2023 09:56 AM ALBUMIN 4.5 06/12/2023 10:23 AM ALBUMIN 4.2 02/18/2023 09:56 AM AST 26 06/12/2023 10:23 AM AST 21 02/18/2023 09:56 AM ALT 37 06/12/2023 10:23 AM ALT 11 02/18/2023 09:56 AM ALKPHOS 183 (H) 06/12/2023 10:23 AM ALKPHOS 143 (H) 02/18/2023 09:56 AM BILITOT 0.2 06/12/2023 10:23 AM BILITOT 0.3 02/18/2023 09:56 AM PROT 8.6 (H) 06/12/2023 10:23 AM PROT 8.0 02/18/2023 09:56 AM ANIONGAP 15 06/12/2023 10:23 AM ANIONGAP 11 02/18/2023 09:56 AM LDH: Lab Results Component Value Date/Time LDH 222 06/12/2023 10:23 AM LDH 174 02/18/2023 09:56 AM Mag: Lab Results Component Value Date/Time MAGNESIUM 1.7 02/14/2022 02:31 AM MAGNESIUM 1.6 02/13/2022 12:47 AM Uric Acid: Lab Results Component Value Date/Time URICACID 5.2 02/13/2022 12:47 AM URICACID 5.2 02/12/2022 06:42 AM Lab Results Component Value Date TACRORDM <1.0 02/18/2023 TACRORDM 1.2 02/12/2022 TACROTR 1.0 02/12/2022 TACROTR 2.5 09/10/2021 Lab Results Component Value Date/Time FERRITIN 686 (H) 10/31/2016 09:15 AM IRON 122 10/31/2016 09:15 AM TIBC See Comment 10/31/2016 09:15 AM No results found for: ERYTHROPOIET Lab Results Component Value Date CMVDNARSLT Not Detected 02/18/2023 CMVDNARSLT Not Detected 10/22/2022 CMVDNARSLT Not Detected 06/08/2021 CMVDNARSLT Not Detected 02/03/2021 CMVDNARSLT Not Detected 01/15/2020 CMVDNAIUML <137 12/03/2017 Lab Results Component Value Date TSH 0.29 (L) 02/18/2023 TSH 0.64 02/28/2022 TSH See Comment 02/28/2022 Lab Results Component Value Date 25HYDROVITD 46 02/18/2023 25HYDROVITD 56 02/28/2022 CHOL 122 02/18/2023 TRIG 129 02/18/2023 HDL 40 02/18/2023 LDLCALC 56 02/18/2023 NONHDLCHOL 82 02/18/2023 CHOLHDL 3 02/18/2023 RADIOLOGY: Dexa Axial Skeleton Bone Density 1 or 2 Site Patient Name: Brady Jones Date of : 1965 Date of scan: 02/18/2023 Bone mineral density was performed on a HoloSmart[employer] Discovery Densitometer. Based on machine cross-calibration and precision studies the least significant changes of this densitometer is 0.024 g/cm2 at the spine, 0.020 g/cm2 at the total proximal femur, and 0.014g/cm2 at the forearm. HISTORY: This is a 57 y.o. male with a history of bone marrow transplant, low bone mass, and vitamin D deficiency. He reports that he has been smoking cigarettes. He started smoking about 37 years ago. He has a 20.00 pack-year smoking history. He has never used smokeless tobacco. Currently on treatment with zoledronic acid (Reclast) and 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 and previously treated with glucocorticoids. INDICATIONS: History of glucocorticoids use, vitamin D deficiency, treatment monitoring, and history of low bone mass. FINDINGS: BONE MINERAL DENSITY OF THE LUMBAR SPINE Bone Mineral Density (BMD) of the lumbar spine was measured from L1-L4 and the average density was calculated to be 1.140 gm/cm2. This corresponds to a T-score (standard deviations from the mean of young adults) of 0.4. When compared to the previous study of 08/11/2021 there has been a 0.072 gm/cm (6.8%) increase in bone density that is considered significant. BONE MINERAL DENSITY OF THE PROXIMAL FEMUR Bone Mineral Density (BMD) of the left hip total was found to be 0.752 gm/cm2. This corresponds to a T-score standard deviations from the mean of young adults of -1.9. Femoral neck is 0.605 gm/cm2 with a T-score (standard deviations from the mean of young adults) of -2.4. When compared to the previous study of 08/11/2021 there has been a 0.038 gm/cm (5.4%) increase in bone density that is considered significant. SUMMARY: Bone mineral density shows evidence of low bone mass at the proximal femur and moderately increased fracture risk (Osteopenia). There has been a significant increase in bone density since previous measurement. There is an artifact in the lumbar spine scan that cannot be corrected and may affect estimation of bone density. ADDITIONAL COMMENTS: Postmenopausal Women and Men Over 50: Diagnostic criteria: Osteoporosis: BMD at or below -2.5 T-score; Osteopenia (low bone mass): BMD between -1.0 and -2.5 T-score. If the patient has a history of a fragility fracture, a fracture that occurred with trauma equivalent to a fall from a standing position or less, then the diagnosis is osteoporosis regardless of bone density. The history and data sections of the bone mineral density scan were prepared by Melody Peña)([facility]) who is accredited by the International Society of Clinical Densitometry. The overall patient assessment and scan interpretation were performed by Jamie Porter M.D. who is certified by the International Society of Clinical Densitometry. [id number] MEDICATIONS: Current Outpatient Medications: acetaminophen (TYLENOL) 500 mg tablet, Take 2 tablets (1,000 mg total) by mouth every 6 (six) hoursas needed for pain, Disp: 30 tablet, Rfl: 0 acyclovir (ZOVIRAX) 400 mg tablet, TAKE 1 TABLET(400 MG) BY MOUTH EVERY 8 HOURS, Disp: 270 tablet, Rfl: 1 albuterol HFA (PROVENTIL HFA,VENTOLIN HFA,PROAIR HFA) 90 mcg/actuation inhaler, Inhale 2 puffs every 6 (six) hours as needed for wheezing, Disp: 1 each, Rfl: 3 aspirin 81 mg enteric coated tablet, Take 1 tablet (81 mg total) by mouth every morning, Disp: , Rfl: atorvastatin (LIPITOR) 40 mg tablet, Take 1 tablet (40 mg total) by mouth daily, Disp: 30 tablet, Rfl: 6 calcium carbonate (TUMS) 500 mg (215 mg elemental) tablet,chewable, Take 20 tablets (10,000 mg total) by mouth 2 (two) times a day as needed, Disp: , Rfl: cholecalciferol (VITAMIN D-3) 2000 unit capsule, Take 1 capsule (2,000 Units total) by mouth every morning, Disp: , Rfl: docusate sodium (COLACE) 100 mg capsule, Take 1 capsule (100 mg total) by mouth 2 (two) times a daywith a glass of water, Disp: 20 capsule, Rfl: 0 ergocalciferol (VITAMIN D) 50,000 unit capsule, TAKE 1 CAPSULE BY MOUTH ONCE A WEEK DIRECTED (Patient taking differently: Take 1 capsule (50,000 Units total) by mouth once a week TAKE 1 CAPSULE BYMOUTH ONCE A WEEK DIRECTED, saturdays), Disp: 12 capsule, Rfl: 3 flash glucose scanning reader (FreeStyle Evaristo 2 [place]) [facility], Use to test blood glucose continuously, Disp: 1 each, Rfl: 1 flash glucose sensor (FreeStyle Evaristo 2 Sensor) kit, Change sensor every 14 days, Disp: 2 kit, Rfl:11 nkftdfeegwf-atoyyxwpx-bvvsexny (Trelegy Ellipta) 200-62.5-25 mcg inhaler, Inhale 1 puff daily, Disp: 60 each, Rfl: 3 gabapentin (NEURONTIN) 300 mg capsule, TAKE ONE CAPSULE BY MOUTH FOUR TIMES DAILY @[id number]-9PM,Disp: 120 capsule, Rfl: 11 insulin glargine (LANTUS, BASAGLAR) 100 unit/mL (3 mL) pen for injection, INJECT 15 UNITS NIGHTLY SUB-Q. (Patient taking differently: Inject 12 Units under the skin nightly INJECT 15 UNITS NIGHTLY SUB-Q.), Disp: 1 pen, Rfl: 5 insulin lispro (HumaLOG, ADMELOG) 100 unit/mL pen for injection, INJECT 5-10 UNITS TID WITH MEALS PLUS SLIDING SCALE. TDD OF 35 UNITS. (Patient taking differently: Inject under the skin 3 (three) times a day before meals INJECT 5- 10 UNITS TID WITH MEALS PLUS SLIDING SCALE. TDD OF 35 UNITS.), Disp: 10 pen, Rfl: 6 levalbuterol (XOPENEX HFA) 45 mcg/actuation inhaler, , Disp: , Rfl: montelukast (SINGULAIR) 10 mg tablet, Take 1 tablet (10 mg total) by mouth daily, Disp: 90 tablet, Rfl: 1 mupirocin (BACTROBAN) 2 % ointment, Apply topically 3 (three) times a day, Disp: 22 g, Rfl: 0 mycophenolate mofetil (CELLCEPT) 500 mg tablet, TAKE 2 TABLETS(1000 MG) BY MOUTH TWICE DAILY, Disp:180 tablet, Rfl: 1 omega-3 fatty acids (LOVAZA) 1 gram capsule, Take 1 capsule (1 g total) by mouth 2 (two) times a day, Disp: , Rfl: ondansetron ODT (ZOFRAN-ODT) 4 mg disintegrating tablet, Take 1 tablet (4 mg total) by mouth every 8 (eight) hours as needed for nausea or vomiting, Disp: 20 tablet, Rfl: 0 oxygen, Administer 2 L/min into each nostril nightly Nightly and PRN, Disp: , Rfl: predniSONE (DELTASONE) 10 mg tablet, Take 40mg (4 tablets) daily for 5 days. THEN take 30mg (3 tablets) daily for 5 days. THEN Take 20mg (2 tablets) daily for 5 days. THEN take 10mg (1 tablet) for 5 days. THEN stop., Disp: 50 tablet, Rfl: 0 tacrolimus (PROGRAF) 0.5 mg immediate-release capsule, TAKE 1 CAPSULE BY MOUTH EVERY OTHER DAY, Disp: 15 capsule, Rfl: 3 traMADoL (ULTRAM) 50 mg tablet, Take 1 tablet (50 mg total) by mouth every 6 (six) hours, Disp: 10 tablet, Rfl: 0 voriCONAZOLE (VFEND) 200 mg tablet, TAKE ONE TABLET BY MOUTH TWICE DAILY @9am & 5pm, Disp: 60 tablet, Rfl: 11 Xarelto 20 mg tablet, TAKE ONE TABLET BY MOUTH DAILY AT 9 AM, Disp: 30 tablet, Rfl: 1 blood-glucose meter misc, 1 Device 3 (three) times a day (Patient not taking: Reported on 12/12/2021), Disp: 1 each, Rfl: 0 furosemide (LASIX) 20 mg tablet, Take 1 tablet (20 mg total) by mouth daily As needed. (Patient taking differently: Take 20 mg by mouth daily as needed), Disp: 30 tablet, Rfl: 0 levoFLOXacin (LEVAQUIN) 500 mg tablet, Take 1 tablet (500 mg total) by mouth daily for 10 days, Disp: 10 tablet, Rfl: 0 IMPRESSION/PLAN: Patient with a history of acute myeloid leukemia post an allo transplant + 4963 days ago. Chronic ichrv-lkhkak-pncb disease. MMF 1 g b.i.d., tacro 0.5 every other day, and he is on prednisone only when he has wheezing or sob- 20mg a day. Infectious disease prophylaxis. He is on acyclovir 400 t.i.d. voriconazole 200 b.i.d History of deep venous thrombosis and pulmonary embolus. DVT lower ext 2012, DVT IJ 2017, PE 02/02/2013. He is on Xarelto 20 mg a day. Chronic obstructive pulmonary disease. He has Ventolin inhaler, Trelegy inhaler, albuterol inhaler,and Singulair 10 a day. On oxygen supplement. Diabetes. He is on Lantus/humolog. F/u with endocrine. Neuropathy. He is on gabapentin 300mg at night or as needed Congestive heart failure/high cholestrol- Lipitor 40mg a day. Pelsor 3 supplements. PRN lasix as needed. Vitamin D deficiency/bone health- Continue oral for now. He is getting reclast in past per endocrine. ROV 09/09/2023 Narcisa Kilgore RN, BUCKLE WIRE INSERTER in collaboration with Josué Del Valle M.D., Ph.D. Chief, Division of Oncology/cotton ginner helper Section of BMT & Leukemia Cosigned by Josué Del Valle MD PhD at 06/13/2023 4:13 PM CDT documented in this encounter Nursing Notes * Damari Sanchez RN - 06/12/2023 11:00 AM CDT TODAY: Recent admit at OSH for COPD Ex. On pred + albuterol + Antibiotic. 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 Medication Sig Dispense Quantity Refills Last Filled Start D ate End Date levalbuterol (XOPENEX HFA) 45 mcg/actuation inhalerIndications:AM L (acute myeloid leukemia) in remission (HCC) 06/11/2023 4 added in this encounter Orders Appointment Requests Count Last Ordered Date Fi rst Ordered Date ONCBCN CLINIC APPOINTMENT REQUEST 1 023 documented in this encounter Care Teams Bucket Chucker Relationship Specialty Start Date End Date Kirt Lindsay DO PCP - General Internal Medicine 02/02/21 Josué Del Valle MD PhD Medical Oncologist/Recording Artist Medical Oncology 08/26/19 Cal Carranza DO [address] [facility] [address] [place] [address] Laundry Routeman Internal Medicine 06/12/23 Halie Khan MD [address] [facility] [address] [place] [address] Electronic Coils Supervisor Critical Care Med 06/12/23 documented as of this encounter
--- OUTSIDE RECORDS SUMMARY | 2024-11-22 10:52 | XMS_ITS | Encounter Summary ---
Author Organization [facility] Address [address] [place] [address] Phone Care Team Providers Care Gear Inspector Name Role Phone Josué Del Valle MD PhD Unavailable [phone] Kirt Lindsay DO Primary Care Provider [phone] Tay Charlton MD Unavailable [phone] Halie Khan MD Unavailable [phone] StarksAnt goldman MD Unavailable [phone] Encounter Details Date Type Department Care Team (Late st Contact Info) Description 05/01/2023 Telephone [facility] Oncology [address] 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 Informed the pharmacy of this documented in this encounter Plan of Treatment Not on file documented as of this encounter Visit Diagnoses Not on filedocumented in this encounter Care Teams Gear Inspector Relationship Specialty Start Date End Date Kirt Lindsay DO PCP - General Internal Medicine 02/02/21 Josué Del Valle MD PhD Medical Oncologist/Mainframe Consultant Medical Oncology 08/26/19 Tay Charlton MD Consulting Physician Gastroenterology 12/03/21 06/11/23 Halie Khan MD [address] [facility] [address] [place], [place] [id number] Consulting Physician Pulmonary Disease 12/12/21 3 Ant Starks MD [address] [place], [place] [id number] Consulting Physician Transplant Hepatology 01/12/22 documented as of this encounter
--- OUTSIDE RECORDS SUMMARY | 2024-11-22 10:52 | XMS_ITS | Encounter Summary ---
Author Organization [facility] Address [address] [place] [address] Phone Care Team Providers Care Chief Safety Officer Name Role Phone Josué Del Valle MD PhD Unavailable [phone] Kirt Lindsay DO Primary Care Provider [phone] Tay Chartlon MD Unavailable [phone] Halie Khan MD Unavailable [phone] StarksAnt goldman MD Unavailable [phone] Reason for Visit * Reason Onset Date Comments PRIOR AUTHORIZATION ALBUTEROL SULFATE 05/27/2023 Encounter Details Date Type Department Care Team (Late st Contact Info) Description 05/27/2023 Documentation [facility] Bone Marrow Transplant [address] [facility] 7th Floor, [place] [address] Sophie Chilel, A PRIOR AUTHORIZATION ALBUTEROL SULFATE Social History Tobacco Use Types Packs/Day Years [...] on file 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 MEDICATION PRIOR AUTHORIZATION FORM Date: 05/27/23 Patient Name: Brady Jones : 1965 PROVIDER: Ivon PRIMARY DIAGNOSIS: Chronic obstructive pulmonary disease, unspecified COPD type ICD-10 CODE: J44.9 SPECIAL NOTES ON DX?: AUTH#: CANCELLED EFFECTIVE: EXPIRES: NOTES: 05/27/23 UPDATE: PA has been cancelled, as patient will receive an alternate medication that is on his formulary. Team has been notified 05/24/23 PA has been sent to patient insurance. Typically responds within 24- 72hrs. Team has been notified. DRUG INFORMATION: DRUG:Albuterol Sulfate HFA DOSE:90mcg SIG:Inhale 2 puffs every 6 (six) hours as needed for wheezing CAN THIS DRUG BE FILLED AT ANY PHARMACY?: Yes CAN THIS DRUG BE FILLED AT [facility] PHARMACY?:No DOES THIS DRUG REQUIRE THE USE OF A SPECIALTY PHARMACY?: [id number] PHARMACY NAME: [facility] PHONE#: [phone] FAX#: [phone] PHARMACY RETAIL BANKER: [facility] ID#: [id number] BIN: [id number] PCN: [id number] RX GROUP: DANNY TYSON SecurityER SERVICE #: [phone] FAX#: Completed by: ESVIN Yen documented in this encounter Plan of Treatment Not on file documented as of this encounter Visit Diagnoses Not on filedocumented in this encounter Care Teams Chief Safety Officer Relationship Specialty Start Date End Date Kirt Lindsay DO PCP - General Internal Medicine 02/02/21 Josué Del Valle MD PhD Medical Oncologist/Medical Educator Medical Oncology 08/26/19 Tay Charlton MD Consulting Physician Gastroenterology 12/03/21 06/11/23 Halie Khan MD [address] [place] [address] Consulting Physician Pulmonary Disease 12/12/21 3 Ant Starks MD [address] [address] Consulting Physician Transplant Hepatology 01/12/22 documented as of this encounter
--- OUTSIDE RECORDS SUMMARY | 2024-11-22 10:52 | XMS_ITS | Encounter Summary ---
Author Organization [facility] Address [address] [place] [address] Phone Care Team Providers Care Food Selector Name Role Phone Josué Del Valle MD PhD Unavailable Kirt Lindsay DO Primary Care Provider [phone] Cal Carranza DO Unavailable [phone] Halie Khan MD Unavailable [phone] Reason for Visit * Reason Onset Date Comments WANG 10/18/2023 Better [facility] Me dical Supplies Encounter Details Date Type Department Care Team (Late st Contact Info) Description 10/18/2023 Telephone [facility] Endocrinology Metabolism and Lipid [address] [facility] Advanced Medicine 13th [place] [address] [place] [address] Arleen Camejo RMA WANG ([employer] [facility] Medical Supplies) Social History Tobacco Use Types Packs/Day Years [...] on file 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 REDUCTION TECHNICIAN documented in this encounter Plan of Treatment Not on file documented as of this encounter Visit Diagnoses Not on filedocumented in this encounter Care Teams Food Selector Relationship Specialty Start Date End Date Kirt Lindsay DO PCP - General Internal Medicine 02/02/21 Josué Del Valle MD PhD Medical Oncologist/Pump Machine Operator Medical Oncology 08/26/19 Cal Carranza DO [address] [facility] [address] [place] [address] Design Checker Internal Medicine 06/12/23 Halie Khan MD [address] [place] [address] Target Protection Specialist Critical Care Med 06/12/23 documented as of this encounter
--- OUTSIDE RECORDS SUMMARY | 2024-11-22 10:52 | XMS_ITS | Encounter Summary ---
Author Organization [facility] Address [address] [place] [address] Care Team Providers Care Sales Engineer Account Manager Name Role Phone Josué Del Valle MD PhD Unavailable [phone] Kirt Lindsay DO Primary Care Provider [phone] Cal Carranza DO Unavailable [phone] Halie Khan MD Unavailable [phone] Encounter Details Date Type Department Care Team (Latest Contact Info) Description 09/09/2023 8:47 AM CDT - 09/09/2023 11:59 PM CDT Hospital Encounter [facility] [address] [place] [address] Discharge Disposition: Discharge to home or self [...] on file 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 Gender Identity Not on file Sexual Orientation Not on file documented as of this encounter Medications at Time of Discharge cholecalciferol (VITAMIN D-3) 25 mcg (1,000 unit) tablet Take 2 tablets (2,000 Units total) by mouth every morning 11/13/20 21 flash glucose scanning reader (FreeStyle Evaristo 2 [place]) [facility] Use to test blood glucose continuously 1 [...] (acute myeloid leukemia) in remission ([facility]) TAKE 1 TABLET(400 MG) BY MOUTH EVERY 8 HOURS 270 tablet 1 06/11/20 22 024 albuterol HFA (PROVENTIL HFA,VENTOLIN HFA,PROAIR HFA) 90 mcg/actuation inhalerIndications:Chron ic obstructive pulmonary disease, unspecified COPD type ([facility]) INHALE TWO PUFFS BY MOUTH EVERY 4 HOURS NEEDED FOR WHEEZING (BULK) 54 g 11 08/13/20 23 024 aspirin 81 mg enteric coated tablet Take 1 tablet (81 mg total) by mouth every morning 01/01/20 23 024 atorvastatin (LIPITOR) 40 mg tabletIndications:AML (acute myeloid leukemia) in remission ([facility]),Type 2 diabetes mellitus with hyperglycemia, with long-term current use of insulin ([facility]),Kjrpq-hxhorx-lmga disease ([facility]),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[facility]),Pure hypercholesterolemia Take 1 tablet (40 mg total) by mouth daily 30 tablet 6 01/15/20 20 024 blood-glucose meter miscIndications:Type 2 diabetes mellitus with hyperosmolarity 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, with long-term current use of insulin ([facility]) 1 Device 3 (three) times a [...] (acute myeloid leukemia) in remission ([facility]),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[facility]),Vitamin D deficiency TAKE 1 CAPSULE BY MOUTH ONCE A WEEK DIRECTED 12 capsule 3 10/24/20 21 024 flash glucose sensor (FreeStyle Evaristo 2 Sensor) kit Change sensor every 14 days 2 kit 11 03/17/20 23 024 uqewpfhvvxz-iecbywyba-yl lanter (Trelegy Ellipta) 200-62.5-25 mcg inhalerIndications:Chron ic obstructive pulmonary disease, unspecified COPD type ([facility]) Inhale 1 puff daily 60 each 3 05/02/20 23 023 furosemide (LASIX) 20 mg tabletIndications:Type 2 diabetes mellitus with hyperosmolarity 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, with long-term current use of insulin ([facility]) Take 1 tablet (20 mg total) by mouth daily As needed. 30 tablet 01/15/20 20 024 gabapentin (NEURONTIN) 300 mg capsuleIndications:AML (acute myeloid leukemia) in remission ([facility]) TAKE ONE CAPSULE BY MOUTH FOUR TIMES DAILY @[id number]-9PM 120 capsule 11 05/20/20 23 024 insulin glargine (LANTUS, BASAGLAR) 100 unit/mL (3 mL) pen for injectionIndications:Typ e 2 diabetes mellitus with hyperosmolarity 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, with long-term current use of insulin ([facility]) INJECT 15 UNITS NIGHTLY SUB-Q. 1 pen 5 02/04/20 21 024 insulin lispro (HumaLOG, ADMELOG) 100 unit/mL pen for injectionIndications:Typ e 2 diabetes mellitus with hyperosmolarity 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, with long-term current use of insulin ([facility]) INJECT 5-10 UNITS TID WITH MEALS PLUS SLIDING SCALE. TDD OF 35 UNITS. 10 pen 6 02/04/20 21 024 levalbuterol (XOPENEX HFA) 45 mcg/actuation inhalerIndications:AML (acute myeloid leukemia) in remission ([facility]) 06/11/20 024 montelukast (SINGULAIR) 10 mg tabletIndications: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),Wmyip-jgwiit-cdpw disease (HCC) Take 1 tablet (10 mg total) by mouth daily 90 tablet 1 06/26/20 22 024 mupirocin (BACTROBAN) 2 % ointmentIndications:Loca l skin infection Apply topically 3 (three) times a day 22 g 05/22/20 23 024 mycophenolate mofetil (CELLCEPT) 500 mg tabletIndications:AML (acute myeloid leukemia) in remission ([facility]),Qdypb-ksywle-sveh disease (HCC) TAKE TWO TABLETS BY MOUTH TWICE DAILY @9am & 5pm 180 tablet 11 08/16/20 024 ondansetron ODT (ZOFRAN-ODT) 4 mg disintegrating tabletIndications:Preven tion of Post-Operative Nausea and Vomiting Take 1 tablet (4 mg total) by mouth every 8 (eight) hours as needed for nausea or vomiting 20 tablet 01/12/20 024 predniSONE (DELTASONE) 10 mg tabletIndications:Chroni c obstructive pulmonary disease, unspecified COPD type ([facility]) Take 40mg (4 tablets) daily for 5 days. THEN take 30mg (3 tablets) daily for 5 days. THEN Take 20mg (2 tablets) daily for 5 days. THEN take 10mg (1 tablet) for 5 days. THEN stop. 50 tablet 05/02/20 024 tacrolimus (PROGRAF) 0.5 mg immediate-release capsuleIndications:AML (acute myeloid leukemia) in remission ([facility]) TAKE ONE CAPSULE BY MOUTH EVERY OTHER DAY @ 9AM (VIAL) 15 capsule 07/15/20 024 traMADoL (ULTRAM) 50 mg tablet Take 1 [...] MOUTH DAILY AT 9 AM 30 tablet 06/17/20 23 024 documented as of this encounter Discharge Disposition Disposition Code Departure Means Destination Discharge to home or self care documented in this encounter Plan of Treatment Not on file documented as of this encounter Visit Diagnoses Not on filedocumented in this encounter Care Teams Sales Engineer Account Manager Relationship Specialty Start Date End Date Kirt Lindsay DO PCP - General Internal Medicine 02/02/21 Josué Del Valle MD PhD Medical Oncologist/Elastic Assembler Medical Oncology 08/26/19 Cal Carranza DO [address] [facility] [address] [place] [address] Weighmaster Lead Internal Medicine 06/12/23 Halie Khan MD [address] [place] [address] Travel Assistant Critical Care Med 06/12/23 documented as of this encounter
--- OUTSIDE RECORDS SUMMARY | 2024-11-22 10:52 | XMS_ITS | Encounter Summary ---
Author Organization [facility] Address [address] [place] [address] Phone Care Team Providers Care Administrative Services Specialist Name Role Phone Josué Del Valle MD PhD Unavailable [phone] Kirt Lindsay DO Primary Care Provider [phone] Cal Carranza DO Unavailable [phone] Halie Khan MD Unavailable [phone] Reason for Visit * Reason Onset Date Comments Prior Auth 12/20/2023 [employer] evaristo 2 Encounter Details Date Type Department Care Team (Late st Contact Info) Description 12/20/2023 Telephone [facility] Endocrinology Metabolism and Lipid [address] [facility] 5th [place] [address] [place] [address] Jamel Briscoe, EMT Prior Auth ([employer]Rx Reminder evaristo 2) Social History Tobacco Use Types Packs/Day [...] on file 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 ING CUSTOMER SERVICE REPRESENTATIVE documented in this encounter Plan of Treatment Not on file documented as of this encounter Visit Diagnoses Not on filedocumented in this encounter Care Teams Administrative Services Specialist Relationship Specialty Start Date End Date Kirt Lindsay DO PCP - General Internal Medicine 02/02/21 Josué Del Valle MD PhD Medical Oncologist/Air Transportation Provider Medical Oncology 08/26/19 Cal Carranza DO [address] [place] [address] White Shoe Examiner Internal Medicine 06/12/23 Halie Khan MD [address] [place] [address] Global Transportation Manager Critical Care Med 06/12/23 documented as of this encounter
--- OUTSIDE RECORDS SUMMARY | 2024-11-22 10:53 | XMS_ITS | Encounter Summary ---
Author Organization [facility] Address [address] [facility] [address] [place] [address] Phone Care Team Providers Care Healthcare Specialist Name Role Phone Josué Del Valle MD PhD Unavailable [phone] Kirt Lindsay DO Primary Care Provider [phone] Tay Charlton MD Unavailable [phone] Halie Khan MD Unavailable [phone] StarksAnt goldman MD Unavailable [phone] Reason for Visit * Reason Comments DM Foot Care * Endocrinology (Routine) - Closed Specialty Diagnoses / Procedures Referred By Contac t Referred To Contact Endocrinology Diagnoses Vitamin D deficiency Type 2 diabetes mellitus with other kidney complication, unspecified whether mcc insulin use (HCC) Other osteoporosis without current pathological fracture Other hyperlipidemia Kirt Lindsay DO Phone: tel: fax: [facility] (All Locations) Referral ID Status Reason Start Date Expiration Date V isits Requested Visits Authorized [id number] Closed Specialty Services Required 02/15/2023 03/16/2024 25 25 Encounter Details Date Type Department Care Team (Latest Contact Info) Description 03/25/2023 11:00 AM CDT Clinical Support [facility] Endocrinology Metabolism and Lipid [address] [facility] 13th [place] [address] [place] [address] Quiana Rodriguez RN Type 2 diabetes mellitus without complication, with [...] on file 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 Jones was commended on the overall condition of his feet, and was encouraged to consider moisturizing his feet daily. He was instructed on Basic Diabetic Foot Care and was provided with written instructions as well. We discussed mechanical/thermal/chemical injuries and sales to his feet. He was instructed to use an emery board to decrease toenail length and thickness as needed between scheduled foot appointments. He verbalizes understanding of instructions and agreement with plan of careand will return in 6 months for foot care when he sees Dr. Montejo. documented in this encounter Progress Notes * Quiana Rodriguez RN - 03/25/2023 11:00 AM CDT Images from the original note were not included. Physical Exam Musculoskeletal: Feet: Feet: Right foot: Protective Sensation: 10 sites tested. 2 sites sensed. Skin integrity: Callus and dry skin present. Toenail Condition: Right toenails are abnormally thick and long. Left foot: Protective Sensation: 10 sites tested. 3 sites sensed. Skin integrity: Callus and dry skin present. Toenail Condition: Left toenails are abnormally thick and long. Comments: C-4: both heel rims-thin callusing to rims with slight peeling. Physical Assessment: Ambulation:independent Gait:wide base DM Shoes:worn Athletic shoes with socks Skin:cool, dry, slight peeling, multiple healing scratches to ankles and feet from his cats he states. Hair:absent Nails:moderate-long x 10, thick, bruising underneath both Great toenails. Heels:thin callusing to rims with slight peeling Edema:none Pulses:DP/PT: weak bilaterally Calluses:C-4: both heel rims. Muscle Strength:sometimes he has what fees like needles stabbing his feet. Dorsal/Plantar flexion:strong bilaterally Inversion/Eversion:strong bilaterally Great toe extension:strong bilaterally/flexion:weak bilaterally. Foot Deformity:no gross deformity assessed. Monofilament(5.07):right 3/10/ left 2/10 VIS:right 12 second/ left 10/10 Procedure: Toenails debrided x 10 with nippers and smoothed with electric steven. Heels smoothed with electricsander only, lotion/oil and light dusting of Baby Powder/Cornstarch applied to feet, foot care performed without difficulty, patient tolerated well. documented in this encounter Plan of Treatment Not on file documented as of this encounter Visit Diagnoses Diagnosis Type 2 diabetes mellitus without complication, with long-term current use of insulin ([facility]) ([facility])- Primary documented in this encounter Care Teams Healthcare Specialist Relationship Specialty Start Date End Date Kirt Lindsay DO PCP - General Internal Medicine 02/02/21 Josué Del Valle MD PhD Medical Oncologist/Assembly Cleaner Medical Oncology 08/26/19 Tay Charlton MD Consulting Physician Gastroenterology 12/03/21 06/11/23 Halie Khan MD [address] [address] Consulting Physician Pulmonary Disease 12/12/21 3 Ant Starks MD [address] [address] Consulting Physician Transplant Hepatology 01/12/22 documented as of this encounter
--- OUTSIDE RECORDS SUMMARY | 2024-11-22 10:53 | XMS_ITS | Encounter Summary ---
Author Organization [facility] Address [address] [facility] [address] [place] [address] Phone Care Team Providers Care Sales Support Associate Name Role Phone Josué Del Valle MD PhD Unavailable [phone] Kirt Lindsay DO Primary Care Provider [phone] Tay Charlton MD Unavailable [phone] Halie Khan MD Unavailable [phone] ArpinAnt MD Unavailable [phone] Reason for Visit * Reason Comments Osteopenia * Diagnostic Imaging (Routine) - Closed Specialty Diagnoses / Procedures Referred By Contac t Referred To Contact Diagnoses 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HCC) Other osteoporosis without current pathological fracture Procedures Dexa Axial Skeleton Bone Density [address]jo MD Phone: tel: fax: [facility] (All Locations) Referral ID Status Reason Start Date Expiration Date Visits Re quested Visits Authorized [id number] Closed 02/15/2023 03/16/2024 1 1 Encounter Details Date Type Department Care Team (Latest Contact Info) Description 02/18/2023 11:10 AM CDT Clinical Support [facility] [address] [facility] 5th [place] [address] [place] [address] 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HCC); Other osteoporosis without current pathological fracture; Osteopenia of left hip; Encounter for monitoring zoledronic acid therapy Social History Tobacco Use Types Packs/Day Years [...] file 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 No / Unsure 02/18/2023 10:09 AM CDT documented as of this encounter Plan of Treatment Not on file documented as of this encounter Procedures Procedure Name Priority Date/Time Associated Diagnosis Comments DEXA AXIAL SKELETON BONE DENSITY 1 OR MORE SITES Schedule Routine, Read Routine (OP Routine) 02/18/2023 11:51 AM CDT 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HCC) Other osteoporosis without current pathological fracture documented in this encounter Results * Dexa Axial Skeleton Bone Density 1 or 2 Site (02/18/2023 11:51 AM CDT) Anatomical Region Laterality Modality Body N/A Radiographic Tiffany ging Narrative 02/19/2023 11:53 AM CDT Patient Name: Brady Jones Date of : 1965 Date of scan: 02/18/2023 Bone mineral density was performed on a [employer] Densitometer. ?? Based on machine cross-calibration and precision studies the least significant changes of this densitometer is 0.024 g/cm2 at the spine, 0.020 g/cm2 at the total proximal femur, and 0.014g/cm2 at the forearm. HISTORY: This is a 57 y.o. ?? male with a history of bone marrow [...] mineral density scan were prepared by Melody Peña)(CBDT) who is accredited by the International Society of Clinical Densitometry. The overall patient assessment and scan interpretation were performed by ?? Jamie Porter M.D. who is certified by the International Society of Clinical Densitometry. [id number] Ave Montejo MD IMG DXA PROCEDURES Final Result documented in this encounter Visit Diagnoses Diagnosis 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HCC) Other osteoporosis without current pathological fracture Osteopenia of left hip Encounter for monitoring zoledronic acid therapy documented in this encounter Care Teams Sales Support Associate Relationship Specialty Start Date End Date Kirt Lindsay DO PCP - General Internal Medicine 02/02/21 Josué Del Valle MD PhD Medical Oncologist/Eyeglass Fitter Medical Oncology 08/26/19 Tay Charlton MD Consulting Physician Gastroenterology 12/03/21 06/11/23 Halie Khan MD [address] [address] Consulting Physician Pulmonary Disease 12/12/21 3 Ant Starks MD [address] [address] Consulting Physician Transplant Hepatology 01/12/22 documented as of this encounter
--- OUTSIDE RECORDS SUMMARY | 2024-11-22 10:53 | XMS_ITS | Encounter Summary ---
Author Organization [facility] Address [address] [place] [address] Phone Care Team Providers Care Other Sales Support Worker Name Role Phone Josué Del Valle MD PhD Unavailable Kirt Lindsay DO Primary Care Provider [phone] Tay Charlton MD Unavailable [phone] Halie Khan MD Unavailable [phone] StarksAnt goldman MD Unavailable [phone] Encounter Details Date Type Department Care Team (Late st Contact Info) Description 12/31/2022 Telephone [facility] Bone Marrow Transplant [address] [facility] Advanced Medicine 7th [address], [place] [address] Narcisa Kilgore NP [address] DIV IM BONE MARROW TRANSPLANT[address] [place] [address] Social History Tobacco Use Types Packs/Day Years Used Date Smoking Tobacco: Every Day Cigarettes 0.5 40 Started: 1984 Smokeless Tobacco: [...] on file Legal 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 SSOGRAPH OPERATOR documented in this encounter Plan of Treatment Not on file documented as of this encounter Visit Diagnoses Not on filedocumented in this encounter Care Teams Other Sales Support Worker Relationship Specialty Start Date End Date Kirt Lindsay DO PCP - General Internal Medicine 02/02/21 Josué Del Valle MD PhD Medical Oncologist/Ranch Rider Medical Oncology 08/26/19 Tay Charlton MD Consulting Physician Gastroenterology 12/03/21 06/11/23 Halie Khan MD [address] [address] Consulting Physician Pulmonary Disease 12/12/21 3 Ant Starks MD [address] [address] Consulting Physician Transplant Hepatology 01/12/22 documented as of this encounter
--- OUTSIDE RECORDS SUMMARY | 2024-11-22 10:53 | XMS_ITS | Encounter Summary ---
Author Organization [facility] of [facility] Address [address] [place] [address] Phone Care Team Providers Care Lecturer Of Portuguese Name Role Phone Josué Del Valle MD PhD Unavailable [phone] Kirt Lindsay DO Primary Care Provider [phone] Tay Charlton MD Unavailable [phone] Halie Khan MD Unavailable [phone] [facility] MD Unavailable [phone] Reason for Visit * Reason Onset Date Comments Reschedule 12/25/2022 Encounter Details Date Type Department Care Team (Late st Contact Info) Description 12/25/2022 Telephone [facility] Bone Marrow Transplant [address] [facility] 7th Floor, [place] [address] Jenna Vasquez RMA Reschedule Social History Tobacco Use Types Packs/Day Years [...] on file 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 Jessica Bautista at 10. [facility] 11:15. BOAT OPERATOR * Telephone Encounter - Jenna Vasquez RMA - 12/25/2022 1:01 PM RUN BOAT OPERATOR Pt is requesting a call back to [facility] his 02/22 appt w/MASTER CONTROL TECHNICIAN to 02/18 w/. He has another appt scheduled on 02/18 and wanted to coordinate them on the same day. He asked to please shaina him back BOAT OPERATOR documented in this encounter Plan of Treatment Not on file documented as of this encounter Visit Diagnoses Not on filedocumented in this encounter Care Teams Lecturer Of Portuguese Relationship Specialty Start Date End Date Kirt Lindsay DO PCP - General Internal Medicine 02/02/21 Josué Del Valle MD PhD Medical Oncologist/Chronic Disease Epidemiologist Medical Oncology 08/26/19 Tay Charlton MD Consulting Physician Gastroenterology 12/03/21 06/11/23 Halie Khan MD [address] [address] Consulting Physician Pulmonary Disease 12/12/21 3 Ant Starks MD [address] [facility] [address] [facility] [address] [place] [address] Consulting Physician Transplant Hepatology 01/12/22 documented as of this encounter
--- OUTSIDE RECORDS SUMMARY | 2024-11-22 10:53 | XMS_ITS | Encounter Summary ---
Author Organization [facility] of [facility] Address [address] [place] [address] Phone Care Team Providers Care Truck Driver Helper Name Role Phone Josué Del Valle MD PhD Unavailable [phone] Kirt Lindsay DO Primary Care Provider [phone] Tay Charlton MD Unavailable [phone] Halie Khan MD Unavailable [phone] Ant Starks MD Unavailable [phone] Reason for Visit * Oncology (Routine) - Closed Specialty Diagnoses / Procedures Referred By Contac t Referred To Contact Lab Diagnoses Type 2 diabetes mellitus with hyperosmolarity 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, with long-term current use of insulin (HCC) Osteopenia, unspecified location Procedures ONCBCN ARM DRAW APPT [facility] Scheduling [address] [place] [address] Phone: tel: [facility] Oncology [address] [facility] 7th [place] [address] [place] [address] Phone: tel: Referral ID Status Reason Start Date Expiration Date V isits Requested Visits Authorized [id number] Closed Specialty Services Required 11/23/2021 11/17/2023 99 99 Encounter Details Date Type Department Care Team (Late st Contact Info) Description 10/22/2022 9:00 AM MOUNTER AUTOMATIC Lab [facility] Oncology [address] [facility] 7th [place] [address] [place] [address] 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) Social History Tobacco Use Types [...] on file Legal Sex Male 10:48 AM MOUNTER AUTOMATIC Gender Identity Not on file Sexual Orientation Not on file documented as of this encounter Plan of Treatment Not on file documented as of this encounter Visit Diagnoses Diagnosis 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) documented in this encounter Orders Appointment Requests Count Last Ordered Date Fi rst Ordered Date ONCBCN LAB APPOINTMENT 1 10/22/2022 documented in this encounter Care Teams Truck Driver Helper Relationship Specialty Start Date End Date Kirt Lindsay DO PCP - General Internal Medicine 02/02/21 Josué Del Valle MD PhD Medical Oncologist/Heat Reader Medical Oncology 08/26/19 Tay Charlton MD Consulting Physician Gastroenterology 12/03/21 06/11/23 Halie Khan MD [address] [address] Consulting Physician Pulmonary Disease 12/12/21 3 Ant Starks MD [address] [facility] [address] [place] [address] Consulting Physician Transplant Hepatology 01/12/22 documented as of this encounter
--- OUTSIDE RECORDS SUMMARY | 2024-11-22 10:53 | XMS_ITS | Encounter Summary ---
Author Organization [facility] Address [address] [place] [address] Phone Care Team Providers Care Regional Vice President Surgical Sales Name Role Phone Josué Del Valle MD PhD Unavailable [phone] Kirt Lindsay DO Primary Care Provider [phone] Tay Charlton MD Unavailable [phone] Halie Khan MD Unavailable [phone] StarksAnt goldman MD Unavailable [phone] Encounter Details Date Type Department Care Team (Late st Contact Info) Description 02/14/2023 Orders Only [facility] Bone Marrow Transplant [address] [facility] Advanced Medicine 7th Floor, [place] [address] Damari Sanchez, RN [address] [place] [address] Chronic obstructive pulmonary disease, unspecified COPD type (HCC) (Primary Dx); 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) [...] on file 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 ??Please verify that the correct immunosuppressant test was requested. Interpretive Data Testing performed by liquid chromatography-tandem mass spectrometry. ??Therapeutic concentrations vary depending on type of transplanted organ and time elapsed since transplant. ??Typical trough concentrations range from 5-15 ng/mL. ??This test was developed and its performance characteristics determined by the Laboratory consistent with CLIA requirements. ??This test has not been cleared or approved by the [place] Food and Drug administration. ??Current interpretive data last reviewed 2020. Blood 02/18/2023 9:56 AM CDT 02/18/2023 10:34 AM CDT us Narcisa Kilgore ASSISTANT DISTRIBUTION MANAGER LAB BLOOD ORDERABLES [place] Result Performing Organization Address City/State/[facility] Co de Phone Number [facility] One [facility] Department [place] [address] documented in this encounter Visit Diagnoses Diagnosis Chronic obstructive pulmonary disease, unspecified COPD type (HCC)- Primary 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) documented in this encounter Care Teams Regional Vice President Surgical Sales Relationship Specialty Start Date End Date Kirt Lindsay DO PCP - General Internal Medicine 02/02/21 Josué Del Valle MD PhD Medical Oncologist/Pneudraulic Systems Mechanic Medical Oncology 08/26/19 Tay Charlton MD Consulting Physician Gastroenterology 12/03/21 06/11/23 Halie Khan MD [address] [facility] [address] [place], [place] [id number] Consulting Physician Pulmonary Disease 12/12/21 3 Ant Starks MD [address] [facility] [address] [place] [address] Consulting Physician Transplant Hepatology 01/12/22 documented as of this encounter
--- OUTSIDE RECORDS SUMMARY | 2024-11-22 10:53 | XMS_ITS | Encounter Summary ---
Author Organization [facility] of [facility] Address [address] [place] [address] Phone Care Team Providers Care Bolt Maker Name Role Phone Josué Del Valle MD PhD Unavailable [phone] Kirt Lindsay DO Primary Care Provider [phone] Tay Charlton MD Unavailable [phone] Halie Khan MD Unavailable [phone] Ant Starks MD Unavailable [phone] Cal Carranza DO Unavailable [phone] Halie Khan MD Unavailable [phone] Wilfred Kinsey MD Unavailable Encounter Details Date Type Department Care Team (Late st Contact Info) Description 12/31/2022 Telephone [facility] Oncology [address] [facility] 7th [address] [place] [address] Irina Conrad Social History Tobacco [...] on file 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 Gender Identity Not on file Sexual Orientation Not on file documented as of this encounter Plan of Treatment Not on file documented as of this encounter Visit Diagnoses Not on filedocumented in this encounter Additional Health Concerns Infection Onset Date Last Indicated Resolved Time COVID: Suspected 02/22/2024 02/22/2024 02/22/2024 5:57 PM CDT COVID: Suspected 03/27/2024 03/27/2024 03/28/2024 12:07 AM [...] documented as of this encounter Care Teams Bolt Maker Relationship Specialty Start Date End Date Kirt Lindsay DO PCP - General Internal Medicine 02/02/21 Josué Del Valle MD PhD Medical Oncologist/Foot Cutter Medical Oncology 08/26/19 Tay Charlton MD Consulting Physician Gastroenterology 12/03/21 06/11/23 Halie Khan MD [address] [address] Consulting Physician Pulmonary Disease 12/12/21 3 Ant Starks MD [address] [address] Consulting Physician Transplant Hepatology 01/12/22 Cal Carranza DO [address] [address] Stave Hewer Internal Medicine 06/12/23 Halie Khan MD [address] [address] Gravity Meter Operator Critical Care Med 06/12/23 Wilfred Kinsey MD [address] [facility] [address] [place] [address] [place] [address] Consulting Physician Gastroenterology 03/02/24 documented as of this encounter
--- OUTSIDE RECORDS SUMMARY | 2024-11-22 10:53 | XMS_ITS | Encounter Summary ---
Author Organization [facility] Address [address] [place] [address] Phone Care Team Providers Care Call Center Consultant Name Role Phone Josué Del Valle MD PhD Unavailable [phone] Kirt Lindsay DO Primary Care Provider [phone] Tay Charlton MD Unavailable [phone] Halie Khan MD Unavailable [phone] StarksAnt goldman MD Unavailable [phone] Reason for Visit * Reason Onset Date Comments Coordinating Appointments 02/18/2023 DME 02/18/2023 Wilfredostyle Evaristo - [facility] Encounter Details Date Type Department Care Team (Late st Contact Info) Description 02/18/2023 Telephone [facility] Metabolism and Lipid [address] [facility] Advanced Medicine 13th [place] [address] [place] [address] Bonnie Lara, RN Coordinating Appointments; DME (Wilfrdeostvianca Carrilloe - [facility]) Social History Tobacco Use Types Packs/Day Years [...] on file 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 No / Unsure 02/18/2023 10:09 AM CDT documented as of this encounter Miscellaneous Notes * Telephone Encounter - Bonnie Lara RN - 02/18/2023 1:46 PM CDT Coordinated appt with Quiana Rodriguez and Beata Valentine RD, CDE so pt is able to have foot care andsensor training same day. Also placed request for Reclast to be scheduled on [address] [place] [address] following EML appts. Pt aware of scheduling. * Telephone Encounter - Bonnie Lara RN - 02/18/2023 1:16 PM CDT Images from the original note were not included. Submitted orders for Freestyle Evaristo 2 to [facility] via [facility] documented in this encounter Plan of Treatment Not on file documented as of this encounter Visit Diagnoses Diagnosis Other osteoporosis without current pathological fracture- Primary documented in this encounter Care Teams Call Center Consultant Relationship Specialty Start Date End Date Kirt Lindsay DO PCP - General Internal Medicine 02/02/21 Josué Del Valle MD PhD Medical Oncologist/Interrelated Special Education Teacher Medical Oncology 08/26/19 Tay Charlton MD Consulting Physician Gastroenterology 12/03/21 06/11/23 Halie Khan MD [address] [id number] Consulting Physician Pulmonary Disease 12/12/21 3 Ant Starks MD [address] [id number] Consulting Physician Transplant Hepatology 01/12/22 documented as of this encounter
--- OUTSIDE RECORDS SUMMARY | 2024-11-22 10:53 | XMS_ITS | Encounter Summary ---
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 Gender Identity Not on file Sexual [...] on filedocumented in this encounter Care Teams Railroad Commissioner Relationship Specialty Start Date End Date Kirt Lindsay DO PCP - General Internal Medicine 02/02/21 Josué Del Valle MD PhD Medical Oncologist/Spike Machine Heater Medical Oncology 08/26/19 Tay Charlton MD Consulting Physician Gastroenterology 12/03/21 06/11/23 Halie Khan MD [address] [address] Consulting Physician Pulmonary Disease 12/12/21 3 Ant Starks MD [address] [address] Consulting Physician Transplant Hepatology 01/12/22 documented as of this encounter
--- OUTSIDE RECORDS SUMMARY | 2024-11-22 10:53 | XMS_ITS | Encounter Summary ---
Author Organization [facility] Address [address] [facility] [address] [place] [address] Phone Care Team Providers Care Ore Bridge Operator Name Role Phone Josué Del Valle MD PhD Unavailable [phone] Kirt Lindsay DO Primary Care Provider [phone] Tay Charlton MD Unavailable [phone] Halie Khan MD Unavailable [phone] [place] MD Unavailable [phone] Reason for Visit * Endocrinology (Routine) - Closed Specialty Diagnoses / Procedures Referred By Contac t Referred To Contact Endocrinology Diagnoses Vitamin D deficiency Type 2 diabetes mellitus with other kidney complication, unspecified whether care home insulin use (HCC) Other osteoporosis without current pathological fracture Other hyperlipidemia Kirt Lindsay DO Phone: tel: fax: [facility] (All Locations) Referral ID Status Reason Start Date Expiration Date V isits Requested Visits Authorized [id number] Closed Specialty Services Required 02/15/2023 03/16/2024 25 25 Encounter Details Date Type Department Care Team (Latest Contact Info) Description 02/18/2023 11:40 AM CDT Office Visit [facility] Endocrinology Metabolism and Lipid [address] [facility] [address] [place] [address] [place] [address] Ave Montejo MD [address] [facility] [address] [place] [address] Type 2 diabetes mellitus with other kidney complication, unspecified whether care home insulin use (HCC) (Primary Dx); Vitamin D deficiency; Other osteoporosis without current pathological fracture; Other hyperlipidemia Social History Tobacco Use Types Packs/Day Years [...] on file 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 No / Unsure 02/18/2023 10:09 AM CDT documented as of this encounter Last Filed Vital Signs Vital Sign Reading Time Taken Comments Blood Pressure 117/81 02/18/2023 11:58 AM CDT Pulse 84 02/18/2023 11:58 AM CDT Temperature 36.3 ??C (97.4 ??F) 02/18/2023 11:58 AM C DT Respiratory Rate - - Oxygen Saturation - - Inhaled Oxygen Concentration - - Weight 65.1 kg (143 lb 9.6 oz) 02/18/2023 11:58 AM CDT Height - - Body Mass Index 20.67 02/18/2023 10:12 AM CDT documented in this encounter Patient Instructions * Patient Instructions* Ave Montejo MD - 02/18/2023 11:40 AM CDT - Continue current insulin regimen - Will send SADAR 3D Libre2 and you have the mauro on your phone now - Will see you back in 3 weeks for your Reclast infusion and sensor teaching - I will see you back in 4-6 months for your sugars documented in this encounter Ordered Prescriptions Prescription Sig Dispense Quantity Refills Last Filled Start Date End Date flash glucose scanning reader (FreeStyle Evaristo 2 [place]) [facility] Use to test blood glucose continuously 1 each 1 03/17/2023 flash glucose sensor (FreeStyle Evaristo 2 Sensor) kit Change sensor every 14 days 2 kit 11 03/17/2023 4 documented in this encounter Progress Notes * Ave Montejo MD - 02/18/2023 11:40 AM CDT Subjective Mr. Jones is a 57 y.o. 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 He does not take prednisone currently. Does take periodically, 1 week at a time, every other day, when his lungs feel more tight and his delivery rn prescribes a burst. Insulin regimen: - Basaglar 5-6 untis at HS - Using Humalo units with meals and 1:30 > 150 for correction several times per day. - Tries to limit sweets A1c is down from 8.1% --> 7.0% today. Denies polyuria, polydipsia or blurry vision. For osteopenia, he takes over the counter calcium and consumes dairy, although does not drink milk.Continues on vit D 50,000IU weekly. Not on a PPI. Exercises occasionally, not as consistent, as he recently had eye surgery. No falls or fractures since last visit. He does not get regular dental care as he is edentulous and has dentures. He continues tobacco use. No falls or fractures since last visit. No other concerns today. DIAGNOSES: 1. 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 T2DM 4. Hyperlipidemia-on atorvastatin 5. Osteopenia. CURRENT MEDICATIONS: Current Outpatient Medications: acetaminophen (TYLENOL) 500 [...] mouth daily, Disp: 30 tablet, Rfl: 6 blood-glucose meter misc, 1 Device 3 (three) times a day (Patient not taking: Reported on 12/12/2021), Disp: 1 each, Rfl: 0 calcium carbonate (TUMS) 500 mg (215 mg elemental) tablet,chewable, Take 10,000 mg by mouth 2 (two)times a day as needed, Disp: , Rfl: cholecalciferol (VITAMIN D-3) 2000 unit capsule, Take 2,000 Units by mouth every morning, Disp: , Rfl: docusate sodium (COLACE) 100 mg capsule, Take 1 capsule (100 mg total) by mouth 2 (two) times a daywith a glass of water, Disp: 20 capsule, Rfl: 0 ergocalciferol (VITAMIN D) 50,000 unit capsule, TAKE 1 CAPSULE BY MOUTH ONCE A WEEK DIRECTED (Patient taking differently: Take 50,000 Units by mouth once a week TAKE 1 CAPSULE BY MOUTH ONCE A WEEKAS DIRECTED, saturdays), Disp: 12 capsule, Rfl: 3 furosemide (LASIX) 20 mg tablet, Take 1 tablet (20 mg total) by mouth daily As needed. (Patient taking differently: Take 20 mg by mouth daily as needed), Disp: 30 tablet, Rfl: 0 gabapentin (NEURONTIN) 300 mg capsule, TAKE 1 CAPSULE(300 MG) BY MOUTH FOUR TIMES DAILY, Disp: 120 capsule, Rfl: 1 insulin glargine (LANTUS, BASAGLAR) 100 unit/mL (3 [...] 35 UNITS.), Disp: 10 pen, Rfl: 6 montelukast (SINGULAIR) 10 mg tablet, Take 1 tablet (10 mg total) by mouth daily, Disp: 90 tablet, Rfl: 1 mycophenolate mofetil (CELLCEPT) 500 mg tablet, TAKE 2 TABLETS(1000 MG) BY MOUTH TWICE DAILY, Disp:180 tablet, Rfl: 1 omega-3 fatty acids (LOVAZA) 1 gram capsule, Take 1 g by mouth 2 (two) times a day , Disp: , Rfl: ondansetron ODT (ZOFRAN-ODT) 4 [...] THEN stop., Disp: 50 tablet, Rfl: 0 rivaroxaban (Xarelto) 20 mg tablet, Take 1 tablet (20 mg total) by mouth daily, Disp: 30 tablet, Rfl: 1 tacrolimus (PROGRAF) 0.5 mg immediate-release capsule, TAKE 1 CAPSULE BY MOUTH EVERY OTHER DAY, Disp: 15 capsule, Rfl: 3 traMADoL (ULTRAM) 50 mg tablet, Take 1 tablet (50 mg total) by mouth every 6 (six) hours, Disp: 10 tablet, Rfl: 0 Trelegy Ellipta 200-62.5-25 mcg inhaler, INHALE 1 PUFF BY MOUTH DAILY, Disp: 60 each, Rfl: 3 voriCONAZOLE (VFEND) 200 mg tablet, Take 1 tablet (200 mg total) by mouth 2 (two) times a day, Disp: 60 tablet, Rfl: 3 Review of Systems: Review of Systems All other systems reviewed and are negative.As per HPI. Objective Vitals BP 117/81 Pulse 84 Temp 36.3 ??C (97.4 ??F) Wt 65.1 kg (143 lb 9.6 oz) BMI 20.67 kg/m?? Physical Exam: Constitutional: The patient is well-developed and well-nourished, appears stated age, and is in no acute distress. HENT: Head: Normocephalic and atraumatic. Mouth/Throat: MMM Eyes: Conjunctivae and EOM are normal. No conjuctival injection. No scleral icterus. Neck: Normal range of motion. Neck supple. Lymphatics: No LAD of the head or neck Cardiovascular: Normal rate and regular rhythm. Normal S1 and S2. Pulmonary/Chest: Breath sounds normal. Good respiratory effort. No crackles or wheezing Abdominal: Soft. Not tender, not distended. Musculoskeletal: Normal range of motion. Bilateral lower extremities without ulcers. Good nail hygiene Neurological: The patient is alert and oriented to person, place, and time. CN II-XII grossly intact. 2+/5 bicep DTRs with normal relaxation phase. Intact sensation to monofilament and over bilaterallower extremities. Decreased sensation to vibration over right MTP, intact over left MTP. No fine tremor on outstretched arms Skin: Skin is warm and dry. Psychiatric: Appropriate mood, judgement and affect. Vitals reviewed. Lab/Radiology/Diagnostic Review: Laboratory review: reviewed the laboratory result(s) in the last 24 hours: Recent Results (from the past 24 hour(s)) Lipid panel Collection Time: 02/18/23 9:56 AM Result Value Ref Range Cholesterol 122 30 - 199 mg/dL Triglycerides 129 <=149 mg/dL HDL 40 >=40 mg/dL LDL, calculated 56 <=129 mg/dL Non-HDL Cholesterol 82 mg/dL Chol/HDL ratio 3 Vitamin D 25 hydroxy Collection Time: 02/18/23 9:56 AM Result Value Ref Range Vitamin D 25-OH 46 30 - 80 ng/mL TSH Collection Time: 02/18/23 9:56 AM Result Value Ref Range Thyroid Stimulating Hormone 0.29 (L) 0.30 - 4.20 mcIUnit/mL T4, free Collection Time: 02/18/23 9:56 AM Result Value Ref Range Free T4 1.41 0.90 - 1.70 ng/dL Lactate dehydrogenase (LD) Collection Time: 02/18/23 9:56 AM Result Value Ref Range Lactate dehydrogenase (LDH) 174 100 - 250 Units/L Comprehensive metabolic panel Collection Time: 02/18/23 9:56 AM Result Value Ref Range Sodium 140 135 - 145 mmol/L Potassium, pl 4.5 3.3 - 4.9 mmol/L Chloride 100 97 - 110 mmol/L CO2 29 22 - 32 mmol/L Anion gap 11 2 - 15 mmol/L BUN 11 8 - 25 mg/dL Creatinine 0.90 0.80 - 1.30 mg/dL Glucose 140 70 - 199 mg/dL Calcium 10.1 8.5 - 10.3 mg/dL Bilirubin, total 0.3 0.1 - 1.2 mg/dL Protein, pl 8.0 6.5 - 8.5 g/dL Albumin 4.2 3.5 - 5.0 g/dL Alk phos 143 (H) 40 - 130 Units/L ALT 11 7 - 55 Units/L AST 21 10 - 50 Units/L CBC with auto differential Collection Time: 02/18/23 9:56 AM Result Value Ref Range WBC 13.9 (H) 3.8 - 9.8 K/cumm Hgb 13.7 (L) 13.8 - 17.2 g/dL Hct 39.9 (L) 40.7 - 50.3 % Plt 367 140 - 440 K/cumm MPV 7.9 6.8 - 10.4 fL RBC 3.82 (L) 4.50 - 5.70 M/cumm MCV 104.2 (H) 80.0 - 97.6 fL MCH 35.7 (H) 26.7 - 33.7 pg MCHC 34.3 32.7 - 35.5 g/dL RDW CV 12.8 11.8 - 14.6 % NRBC abs 0.01 0.00 - 0.01 K/cumm Differential, auto Collection Time: 02/18/23 9:56 AM Result Value Ref Range Neutrophil abs 8.1 (H) 1.8 - 6.6 K/cumm Lymphocyte abs 4.1 (H) 1.2 - 3.3 K/cumm Monocyte abs 1.3 (H) 0.2 - 1.2 K/cumm Eosinophil abs 0.3 0.0 - 0.5 K/cumm Basophil abs 0.1 0.0 - 0.2 K/cumm Neutrophil pct 58.1 % Lymphocyte pct 29.4 % Monocyte pct 9.2 % Eosinophil pct 2.4 % Basophil pct 0.9 % eGFR Collection Time: 02/18/23 9:56 AM Result Value Ref Range eGFR >90 90 - 130 mL/min/1.73 m2 POCT glucose Collection Time: 02/18/23 12:01 PM Result Value Ref Range Glucose Blood, POC 121 mg/dL POCT hemoglobin A1c Collection Time: 02/18/23 12:06 PM Result Value Ref Range Hemoglobin A1C, POC 7.0 % DEXA 02/2023: BONE MINERAL DENSITY OF THE LUMBAR SPINE [...] in bone density that is considered significant. ASSESSMENT & PLAN: Type 2 diabetes mellitus - Better controlled off steroids - Continue current insulin regimen - Continue SBGM; he is checking sugars 3-4 times per day, and is taking 3-4 insulin injections per day. Would benefit from a CGM to help limit glycemic excursions and hypoglycemia. Will send script - Follow up with a dilated eye exam as previously scheduled - Follow up with CDE - Call for glycemic excursions Osteopenia -DEXA scan done today revealed sig improvement in the hip and spine -will continue vitamin D supplementation and dietary calcium -weight bearing exercise -tobacco cessation -will dose Reclast x1 now and check DEXA in 1 year Hyperlipidemia continue atorvastatin Vitamin D deficiency -Check levels and adjust supplementation accoridngly Thank you for allowing me to participate in Mr. Jones's care. I will see him back in 3-4 months.He will call sooner with any questions or concerns. documented in this encounter Plan of Treatment Not on file documented as of this encounter Procedures Procedure Name Priority Date/Time Associated Diagnosis Comments POCT HEMOGLOBIN A1C Routine 02/18/2023 1 2:06 PM CDT Type 2 diabetes mellitus with other kidney complication, unspecified whether care home insulin use (HCC) POCT GLUCOSE Routine 02/18/2023 12:01 PM CDT Type 2 diabetes mellitus with other kidney complication, unspecified whether care home insulin use (HCC) documented in this encounter Results * POCT hemoglobin A1c (02/18/2023 12:06 PM CDT) Hemoglobin A1C, POC 7.0 % Blood 02/18/2023 12:[address] Montejo MD POINT OF CARE TEST ORDERABLES F inal Result * POCT glucose (02/18/2023 12:01 PM CDT) Glucose Blood, POC 121 mg/dL Blood 02/18/2023 12:[address] Montejo MD POINT OF CARE TEST ORDERABLES F inal Result documented in this encounter Visit Diagnoses Diagnosis Type 2 diabetes mellitus with other kidney complication, unspecified whether care home insulin use (HCC)- Primary Vitamin D deficiency Other osteoporosis without current pathological fracture Other hyperlipidemia documented in this encounter Historical Medications * This list may reflect changes made after this encounter. aspirin 81 mg enteric coated tablet Take 1 tablet (81 mg total) by mouth every morning 01/01/2023 02/20/2024 added in this encounter Orders Outpatient Referral Count Last Ordered Date Fir st Ordered Date AMB REFERRAL TO ENDOCRINOLOGY 1 02/18/2023 documented in this encounter Care Teams Ore Bridge Operator Relationship Specialty Start Date End Date Kirt Lindsay DO PCP - General Internal Medicine 02/02/21 Josué Del Valle MD PhD Medical Oncologist/[facility] 08/26/19 Tay Charlton MD Consulting Physician Gastroenterology 12/03/21 06/11/23 Halie Khan MD [address] [id number] Consulting Physician Pulmonary Disease 12/12/21 3 Ant Starks MD [address] [phone] Consulting Physician Transplant Hepatology 01/12/22 documented as of this encounter
--- OUTSIDE RECORDS SUMMARY | 2024-11-22 10:53 | XMS_ITS | Encounter Summary ---
Author Organization [facility] Healthcare Address [address] [place] [address] Care Team Providers Care Tech Intern Name Role Phone Josué Del Valle MD PhD Unavailable [phone] Kirt Lindsay DO Primary Care Provider [phone] Tay Charlton MD Unavailable [phone] Halie Khan MD Unavailable [phone] StarksAnt goldman MD Unavailable [phone] Encounter Details Date Type Department Care Team (Latest Contact Info) Description 10/22/2022 11:12 AM OPTICAL GLASS ETCHER - 10/22/2022 11:59 PM [facility] Hospital Encounter [facility] [address] [place] [address] 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) Discharge Disposition: Discharge to home or [...] on file Legal Sex Male 10:48 AM OPTICAL GLASS ETCHER Gender Identity Not on file Sexual Orientation Not on file documented as of this encounter Medications at Time of Discharge cholecalciferol (VITAMIN D-3) 25 mcg (1,000 unit) tablet Take 2 tablets (2,000 Units total) by mouth every morning 1 omega-3 fatty acids (LOVAZA) 1 gram capsule Take 1 capsule (1 g total) by mouth daily 1 oxygen Administer 2 L/min into each nostril nightly Nightly and PRN acetaminophen (TYLENOL) 500 mg tablet Take 2 tablets (1,000 mg total) by mouth every 6 (six) hours as needed for pain 30 tablet 2 02/20/20 24 acyclovir (ZOVIRAX) 400 mg tabletIndications:AML (acute myeloid leukemia) in remission ([facility]) TAKE 1 TABLET(400 MG) BY MOUTH EVERY 8 HOURS 270 tablet 1 2 02/20/20 24 albuterol HFA (PROVENTIL HFA,VENTOLIN HFA,PROAIR HFA) 90 mcg/actuation inhalerIndications:Chron ic obstructive pulmonary disease, unspecified COPD type ([facility]) Inhale 2 puffs every 6 (six) hours as needed for wheezing 1 each 3 2 06/07/20 23 atorvastatin (LIPITOR) 40 mg tabletIndications:AML (acute myeloid leukemia) in remission ([facility]),Type 2 diabetes mellitus with hyperglycemia, with long-term current use of insulin ([facility]),Fynbb-mcbnxd-kcdt disease (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),Pure hypercholesterolemia Take 1 tablet (40 mg total) by mouth daily 30 tablet 6 0 07/30/20 24 blood-glucose meter miscIndications:Type 2 diabetes mellitus with hyperosmolarity 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, with long-term current use of insulin ([facility]) 1 Device 3 (three) times a day 1 each 9 02/20/20 24 calcium carbonate (TUMS) 500 mg (215 mg elemental) tablet,chewableIndicatio ns:Heartburn Take 20 tablets (10,000 mg total) by mouth 2 (two) times a day as needed 02/20/20 24 docusate sodium (COLACE) 100 mg capsuleIndications:const ipation Take 1 capsule (100 mg total) by mouth 2 (two) times a day with a glass of water 20 capsule 2 02/20/20 24 ergocalciferol (VITAMIN D) 50,000 unit capsuleIndications:AML (acute myeloid leukemia) in remission (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),Vitamin D deficiency TAKE 1 CAPSULE BY MOUTH ONCE A WEEK DIRECTED 12 capsule 3 1 02/20/20 24 syhjmhctjxc-tbyjzhpgf-oz lanter (Trelegy Ellipta) 200-62.5-25 mcg inhalerIndications:Chron ic obstructive pulmonary disease, unspecified COPD type ([facility]) Inhale 1 puff daily 28 each 3 2 02/02/20 23 furosemide (LASIX) 20 mg tabletIndications:Type 2 diabetes mellitus with hyperosmolarity 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, with long-term current use of insulin ([facility]) Take 1 tablet (20 mg total) by mouth daily As needed. 30 tablet 0 02/20/20 24 gabapentin (NEURONTIN) 300 mg capsuleIndications:AML (acute myeloid leukemia) in remission ([facility]) TAKE 1 CAPSULE(300 MG) BY MOUTH FOUR TIMES DAILY 120 capsule 1 2 11/30/19 23 insulin glargine (LANTUS, BASAGLAR) 100 unit/mL (3 mL) pen for injectionIndications:Typ e 2 diabetes mellitus with hyperosmolarity 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, with long-term current use of insulin ([facility]) INJECT 15 UNITS NIGHTLY SUB-Q. 1 pen 5 1 02/20/20 24 insulin lispro (HumaLOG, ADMELOG) 100 unit/mL pen for injectionIndications:Typ e 2 diabetes mellitus with hyperosmolarity 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, with long-term current use of insulin ([facility]) INJECT 5-10 UNITS TID WITH MEALS PLUS SLIDING SCALE. TDD OF 35 UNITS. 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 THEN take 30mg (3 tablets) daily for 5 days. THEN Take 20mg (2 tablets) daily for 5 days. THEN take 10mg (1 tablet) for 5 days. THEN stop. 50 tablet 2 05/02/20 23 rivaroxaban (Xarelto) 20 mg tabletIndications: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) Take 1 tablet (20 mg total) by mouth daily 30 tablet 1 2 05/14/20 23 tacrolimus (PROGRAF) 0.5 mg immediate-release capsuleIndications: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) TAKE 1 CAPSULE BY MOUTH EVERY OTHER DAY 15 capsule 3 2 07/15/20 23 traMADoL (ULTRAM) 50 mg tablet Take 1 tablet (50 mg total) by mouth every 6 (six) hours 10 tablet 2 02/20/20 24 voriCONAZOLE (VFEND) 200 mg tabletIndications:stem Cell Transplant Take 1 tablet (200 mg total) by mouth 2 (two) times a day 60 tablet 3 2 05/29/20 23 documented as of this encounter Discharge Disposition Disposition Code Departure Means Destination Discharge to home or self care documented in this encounter Plan of Treatment Not on file documented as of this encounter Procedures Procedure Name Priority Date/Time Associated Diagnosis Comments EGFR Routine 10/22/2022 8:45 AM OPTICAL GLASS ETCHER 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) DIFFERENTIAL AUTO Routine 10/22/2022 8:4 5 AM OPTICAL GLASS ETCHER 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) CBC WITH AUTO DIFFERENTIAL Routine 10/22/2022 8:45 AM OPTICAL GLASS ETCHER 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) LACTATE DEHYDROGENASE Routine 10/22/2022 8:45 AM OPTICAL GLASS ETCHER 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) COMPREHENSIVE METABOLIC PANEL Routine 10/22/2022 8:45 AM OPTICAL GLASS ETCHER 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) CYTOMEGALOVIRUS (CMV) DNA, QUANT GEN LAB Routine 10/22/2022 8:45 AM OPTICAL GLASS ETCHER 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) documented in this encounter Results * eGFR (10/22/2022 8:45 AM OPTICAL GLASS ETCHER) [facility] eGFR >90 90 - 130 mL/min/1. 73 m2 [facility] Comment: Interpretive Data Reference Interval Normal ?>/= [...] was last reviewed 2021. Testing performed by: [facility], [address] [place] [phone] Blood 10/22/2022 8:45 AM OPTICAL GLASS ETCHER 10/22/2022 8:51 AM OPTICAL GLASS ETCHER us Josué Del Valle MD PhD LAB BLOOD ORDERABLES Fin al Result [facility] Department [place] [address] * (ABNORMAL) Differential, auto (10/22/2022 8:45 AM OPTICAL GLASS ETCHER) Neutrophil abs 7.7(H) 1.8 - 6.6 K/cumm [facility] Comment:Testing performed by : [facility], [address] [place] [phone] Lymphocyte abs 4.7(H) 1.2 - 3.3 K/cumm [facility] Comment:Testing performed by : [facility], [address] [place] [phone] Monocyte abs 0.9 0.2 - 1.2 K/cumm [facility] Comment:Testing performed by : [facility], [address] [place] [phone] Eosinophil abs 0.0 0.0 - 0.5 K/cumm [facility] Comment:Testing performed by : [facility], [address] [place] [phone] Basophil abs 0.1 0.0 - 0.2 K/cumm [facility] Comment:Testing performed by : [address] [phone] Neutrophil pct 57.6 % [facility] Comment: Interpretive Data Percent cell count reference ranges are not reported, since discordance with absolute values may lead to misinterpretation of CBC data. Current Interpretive Data was last revised on 2018. Testing performed by: [facility], [address] [place] [phone] Lymphocyte pct 34.9 % [facility] Comment: Interpretive Data Percent cell count reference ranges are not reported, since discordance with absolute values may lead to misinterpretation of CBC data. Current Interpretive Data was last revised on 2018. Testing performed by: [facility], [address] [place] [phone] Monocyte pct 6.8 % [facility] Comment:Testing performed by : [facility], [address] [place] [phone] Eosinophil pct 0.0 % [facility] Comment:Testing performed by : [facility], [address] [place] [phone] Basophil pct 0.7 % [facility] Comment:Testing performed by : [facility], [address] [place] [phone] Blood 10/22/2022 8:45 AM OPTICAL GLASS ETCHER 10/22/2022 8:51 AM OPTICAL GLASS ETCHER Josué Del Valle MD PhD LAB BLOOD ORDERABLES Fin al Result [facility] Department [place] [address] * (ABNORMAL) CBC with auto differential (10/22/2022 8:45 AM OPTICAL GLASS ETCHER) WBC 13.4(H) 3.8 - 9.8 K/cumm [facility] Comment:Testing performed by : [facility], [address] [place] [phone] Hgb 13.9 13.8 - 17.2 g/dL [facility] Comment:Testing performed by : [address] [phone] Hct 41.4 40.7 - 50.3 % [facility] Comment:Testing performed by : [facility], [address] [place], [place] [phone] Plt 362 140 - 440 K/cumm [facility] Comment:Testing performed by : [facility], [address] [place] [phone] MPV 8.3 6.8 - 10.4 fL [facility] Comment:Testing performed by : [facility], [address] [place], [place] [phone] RBC 3.94(L) 4.50 - 5.70 M/cumm [facility] Comment:Testing performed by : [facility], [address] [place], [place] [phone] MCV 105.1(H) 80.0 - 97.6 fL [facility] Comment:Testing performed by : [facility], [address] [place], [place] [phone] MCH 35.3(H) 26.7 - 33.7 pg [facility] Comment:Testing performed by : [facility], [address] [place] [phone] MCHC 33.6 32.7 - 35.5 g/dL [facility] Comment:Testing performed by : [address] [phone] RDW CV 14.2 11.8 - 14.6 % [facility] Comment:Testing performed by : [address] [phone] NRBC abs 0.12(H) 0.00 - 0.01 K/cumm [facility] Comment:Testing performed by : [facility], [address] [place] [phone] Blood 10/22/2022 8:45 AM OPTICAL GLASS ETCHER 10/22/2022 8:51 AM OPTICAL GLASS ETCHER us Josué Del Valle MD PhD LAB BLOOD ORDERABLES Fin al Result [facility] Department [place] [address] * (ABNORMAL) Comprehensive metabolic panel (10/22/2022 8:45 AM OPTICAL GLASS ETCHER) Sodium 140 135 - 145 mmol/L [facility] Comment:Testing performed by : [facility], [address] [place] [phone] Potassium, pl 4.7 3.3 - 4.9 mmol/L [facility] Comment:Testing performed by : [facility], [address] [place] [phone] Chloride 98 97 - 110 mmol/L [facility] Comment:Testing performed by : [facility], [address] [place] [address] CO2 36(H) 22 - 32 mmol/L [facility] Comment:Testing performed by : [facility], [address] [place] [phone] Anion gap 6 2 - 15 mmol/L [facility] Comment:Testing performed by : [address] [phone] BUN 19 8 - 25 mg/dL [facility] Comment:Testing performed by : [facility], [address] [place] [address] Creatinine 0.77(L) 0.80 - 1.30 mg/dL [facility] Comment:Testing performed by : [address] [phone] Glucose 258(H) 70 - 199 mg/dL [facility] Comment: Interpretive Data Fasting glucose >/= 126 [...] classification and Diagnosis of Diabetes Diabetes Care 2017;40 (Suppl. 1):S11. Current interpretive data was last revised 2017. Testing performed by: [address] [phone] Calcium 9.3 8.5 - 10.3 mg/dL [facility] Comment:Testing performed by : [facility], [address] [place] [phone] Bilirubin, total 0.3 0.1 - 1.2 mg/dL [facility] Comment:Testing performed by : [facility], [address] [place] [phone] Protein, pl 7.7 6.5 - 8.5 g/dL [facility] Comment:Testing performed by : [facility], [address] [place] [address] Albumin 3.8 3.5 - 5.0 g/dL [facility] Comment:Testing performed by : [facility], [address] [place] [phone] Alk phos 170(H) 40 - 130 Units/L [facility] Comment:Testing performed by : [facility], [address] [place] [phone] ALT 62(H) 7 - 55 Units/L [facility] Comment:Testing performed by : [facility], [address] [place] [phone] AST 42 10 - 50 Units/L [facility] Comment:Testing performed by : [facility], [address] [place] [phone] Blood 10/22/2022 8:45 AM OPTICAL GLASS ETCHER 10/22/2022 8:51 AM OPTICAL GLASS ETCHER Josué Del Valle MD PhD LAB BLOOD ORDERABLES Fin al Result [facility] Department [place] [address] * (ABNORMAL) Lactate dehydrogenase (LD) (10/22/2022 8:45 AM OPTICAL GLASS ETCHER) Lactate dehydrogenase (LDH) 259(H) 100 - 250 Units/L [facility] Comment:Testing performed by : [facility], [address] [place] [phone] Blood 10/22/2022 8:45 AM OPTICAL GLASS ETCHER 10/22/2022 8:51 AM OPTICAL GLASS ETCHER us Josué Del Valle MD PhD LAB BLOOD ORDERABLES Fin al Result Performing Organization Address City[facility] Co de Phone Number [facility] Department [place] [address] * Cytomegalovirus (CMV) DNA PCR, quantitative Blood (10/22/2022 8:45 AM OPTICAL GLASS ETCHER) CMV DNA Not Detected [facility] Comment: Interpretive Data: The quantifiable range of this assay is 34 IUnits/mL to 10,000,000 IUnits/mL (1.53 log IUnits/mL to 7.0 log IUnits/mL). Testing was performed by the [facility] [employer] CMV Test ([employer] Testing performed at [facility]. Current interpretive data was last revised on 2021. Blood 10/22/2022 8:45 AM OPTICAL GLASS ETCHER 10/22/2022 9:24 AM OPTICAL GLASS ETCHER us Josué Del Valle MD PhD LAB MICROBIOLOGY - GENER AL ORDERABLES Final Result Performing Organization Address [facility] Co de Phone Number [facility] Department [place] [address] documented in this encounter Visit Diagnoses Diagnosis 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) documented in this encounter Care Teams Tech Intern Relationship Specialty Start Date End Date Kirt Lindsay DO PCP - General Internal Medicine 02/02/21 Josué Del Valle MD PhD Medical Oncologist/Transfer Station Operator Medical Oncology 08/26/19 Tay Charlton MD Consulting Physician Gastroenterology 12/03/21 06/11/23 Halie Khan MD [address] [facility] [address] [place] [address] Consulting Physician Pulmonary Disease 12/12/21 3 Ant Starks MD [address] [facility] [address] [place] [address] Consulting Physician Transplant Hepatology 01/12/22 documented as of this encounter
--- OUTSIDE RECORDS SUMMARY | 2024-11-22 10:53 | XMS_ITS | Encounter Summary ---
Author Organization [facility] Address [address] [place] [address] Phone Care Team Providers Care Recreation Facilities Supervisor Name Role Phone Josué Del Valle MD PhD Unavailable [phone] Kirt Lindsay DO Primary Care Provider [phone] Tay Charlton MD Unavailable [phone] Halie Khan MD Unavailable [phone] StarksAnt goldman MD Unavailable [phone] Encounter Details Date Type Department Care Team (Late st Contact Info) Description 03/05/2023 Telephone [facility]row Transplant [address] [facility] Advanced Medicine 7th Floor, [place] [address] Josué Del Valle MD PhD [address] DIV BONE MARROW TRANSPLANT[address] [place] [address] Social History Tobacco Use Types [...] on file 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 No / Unsure 02/18/2023 10:09 AM CDT documented as of this encounter Miscellaneous Notes * Telephone Encounter - Damari Sanchez RN - 03/06/2023 10:58 AM CDT Received paperwork pending signature * Telephone Encounter - Marisa Mcdermott - 03/05/2023 10:43 AM CDT [facility] ([phone]) calling as patient enrolled in their preferred pharmacy. They will be faxing paperwork to get prescriptions changed to their pharmacy. documented in this encounter Plan of Treatment Not on file documented as of this encounter Visit Diagnoses Not on filedocumented in this encounter Care Teams Recreation Facilities Supervisor Relationship Specialty Start Date End Date Kirt Lindsay DO PCP - General Internal Medicine 02/02/21 Josué Del Valle MD PhD Medical Oncologist/Registered Nurse Midwife Medical Oncology 08/26/19 Tay Charlton MD Consulting Physician Gastroenterology 12/03/21 06/11/23 Halie Khan MD [address] [facility] [address] [place] [address] Consulting Physician Pulmonary Disease 12/12/21 3 Ant Starks MD [address] [facility] [address] [place] [address] Consulting Physician Transplant Hepatology 01/12/22 documented as of this encounter
--- OUTSIDE RECORDS SUMMARY | 2024-11-22 10:53 | XMS_ITS | Encounter Summary ---
Author Organization [facility] Address [address] [facility] [place] [address] Care Team Providers Care Flight Operations Engineer Name Role Phone Josué Del Valle MD PhD Unavailable [phone] Kirt Lindsay DO Primary Care Provider [phone] Tay Charlton MD Unavailable [phone] Halie Khan MD Unavailable [phone] [place] MD Unavailable [phone] Encounter Details Date Type Department Care Team (Late st Contact Info) Description 01/01/2023 Orders Only [facility] Cardiology [address] [facility] [address] [place] [address] Chin La MD [address] [address] Social History Tobacco Use Types Packs/Day Years [...] on file 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 Gender Identity Not on file Sexual Orientation Not on file documented as of this encounter Plan of Treatment Not on file documented as of this encounter Procedures Procedure Name Priority Date/Time Associated Diagnosis Comments CARDIOLOGY DOCUMENT SCAN Routine 01/01/2023 documented in this encounter Results * Cardiology Document Scan (01/01/2023) Anatomical Region Laterality Modality Other Manuela Olmedo ICE CREAM FREEZER HELPER CV CARDIAC SERVICES PROCEDUR ES Final Result documented in this encounter Visit Diagnoses Not on filedocumented in this encounter Care Teams Flight Operations Engineer Relationship Specialty Start Date End Date Kirt Lindsay DO PCP - General Internal Medicine 02/02/21 Josué Del Valle MD PhD Medical Oncologist/Weather Stripper Medical Oncology 08/26/19 Tay Charlton MD Consulting Physician Gastroenterology 12/03/21 06/11/23 Halie Khan MD [address] [facility] [address] [place] [address] Consulting Physician Pulmonary Disease 12/12/21 3 Ant Starks MD [address] [facility] [address] [place] [address] Consulting Physician Transplant Hepatology 01/12/22 documented as of this encounter
--- OUTSIDE RECORDS SUMMARY | 2024-11-22 10:53 | XMS_ITS | Encounter Summary ---
Author Organization [facility] Address [address] [place] [address] Phone Care Team Providers Care Furniture Polisher Name Role Phone Josué Del Valle MD PhD Unavailable [phone] Kirt Lindsay DO Primary Care Provider [phone] Tay Charlton MD Unavailable [phone] Halie Khan MD Unavailable [phone] StarksAnt goldman MD Unavailable [phone] Encounter Details Date Type Department Care Team (Late st Contact Info) Description 03/22/2023 Documentation [facility] Bone Marrow Transplant [address] [facility] 7th Floor, [place] [address] Anna Vaughn LCSW Social History Tobacco Use [...] on file 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 SW booked trip through [employer] and shared details with pt via email: Transportation Vehicle [employer] ([email or web address]) Provider [employer] Ride ID: [id number] Pickup 03/25/23 9:15 AM (CDT) [address] [place] [address] Round Trip: [employer] [facility] [address] [place], [place] [id number] [place] [address] (Return By SMS) Status Upcoming Pt is agreeable with plan and knows to reach out with any questions or concerns. BRIGID Casarez, MARLIN documented in this encounter Plan of Treatment Not on file documented as of this encounter Visit Diagnoses Not on filedocumented in this encounter Care Teams Furniture Polisher Relationship Specialty Start Date End Date Kirt Lindsay DO PCP - General Internal Medicine 02/02/21 Josué Del Valle MD PhD Medical Oncologist/Supervisor Last Model Department Medical Oncology 08/26/19 Tay Charlton MD Consulting Physician Gastroenterology 12/03/21 06/11/23 Halie Khan MD [address] [place] [address] Consulting Physician Pulmonary Disease 12/12/21 3 Ant Starks MD [address] [facility] [address] [place] [address] Consulting Physician Transplant Hepatology 01/12/22 documented as of this encounter
--- OUTSIDE RECORDS SUMMARY | 2024-11-22 10:53 | XMS_ITS | Encounter Summary ---
Author Organization [facility] Address [address] [place] [address] Phone Care Team Providers Care Day Care Provider Name Role Phone Josué Del Valle MD PhD Unavailable [phone] Kirt Lindsay DO Primary Care Provider [phone] Tay Charlton MD Unavailable [phone] Halie Khan MD Unavailable [phone] [place] MD Unavailable [phone] Reason for Visit * Oncology (Routine) - Closed Specialty Diagnoses / Procedures Referred By Contac t Referred To Contact Medical Oncology / Blood and Marrow Transplant Diagnoses 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 7th Floor, [place] [address] Josué Del Valle MD PhD [address] DIV IM BONE MARROW TRANSPLANT[address] [place] [address] 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) (Primary Dx); Uqkav-kachdv-kzbb disease (HCC); 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HCC); Chronic obstructive pulmonary disease, unspecified COPD type ([facility]) Social History Tobacco Use Types Packs/Day Years Used Date Smoking Tobacco: Every Day Cigarettes 0.5 40 Started: 1985 Smokeless Tobacco: Never Tobacco Cessation:Ready to Q uit: Yes; Counseling Given: Yes Comments:pt states tried to quit AUDIT-C Answer Date Recorded Q1: How often do you have a drink containing alc ohol? Never 01/12/2022 Average Number of Drinks Not on file 022 Frequency of Binge Drinking Not on file 12/20 Sex and Gender Information Value Date Recorded Sex Assigned at Not on file Legal Sex Male 10:48 AM CONTINUOUS IMPROVEMENT BLACK BELT Gender Identity Not on file Sexual Orientation Not on file documented as of this encounter Last Filed Vital Signs Vital Sign Reading Time Taken Comments Blood Pressure 168/93 10/22/2022 9:03 AM CONTINUOUS IMPROVEMENT BLACK BELT Pulse 64 10/22/2022 9:03 AM CONTINUOUS IMPROVEMENT BLACK BELT Temperature 36.1 ??C (97 ??F) 10/22/2022 9:03 AM CONTINUOUS IMPROVEMENT BLACK BELT Respiratory Rate 18 10/22/2022 9:03 AM CONTINUOUS IMPROVEMENT BLACK BELT Oxygen Saturation 99% 10/22/2022 9:03 AM CONTINUOUS IMPROVEMENT BLACK BELT Inhaled Oxygen Concentration - - Weight 65.4 kg (144 lb 3.2 oz) 10/22/2022 9:03 A M CONTINUOUS IMPROVEMENT BLACK BELT Height - - Body Mass Index 20.69 02/12/2022 6:15 AM CDT documented in this encounter Ordered Prescriptions Prescription Sig Dispense Quantity Refills Last Filled Start Date End Date albuterol HFA (PROVENTIL HFA,VENTOLIN HFA,PROAIR HFA) 90 mcg/actuation inhalerIndications :Chronic obstructive pulmonary disease, unspecified COPD type (HCC) Inhale 2 puffs every 6 (six) hours as needed for wheezing 1 each 3 10/22/2022 3 fluticasone-umecli din-vilanter (Trelegy Ellipta) 200-62.5-25 mcg inhalerIndications :Chronic obstructive pulmonary disease, unspecified COPD type (HCC) Inhale 1 puff daily 28 each 3 10/22/2022 3 documented in this encounter Progress Notes * Josué Del Valle MD PhD - 10/22/2022 12:00 AM CST PATIENT NAME: BRI JONES : 1965 ROSY: 10/22/2022 DIAGNOSIS: 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 TREATMENT HISTORY: 1. Induction with 7+3 and HiDAC consolidation x3. 2. [facility]. 3. Relapsed disease, status post [facility]. 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 TRANSPLANT HISTORY: Status post an allogeneic transplant with busulfan and Cytoxan on the [facility] allogeneic study with hissister, 08/27 match; with day 0 on 11/09/2009. INTERVAL HISTORY: Bri carries a diagnosis of AML. He is 4730 days post matched sib allo transplant from a sister after Bu/Cy conditioning regimen on 11/09/2009. He has chronic zhjta-jawanv-lfub disease. He is on MMF 1 g b.i.d. and tacrolimus 0.5 every other day. He is now off prednisone. He has very bad lung disease from heavy smoking. He remains on MMF and tacro. He was on Jakafi, but he discontinued that. MEDICATIONS: Full medication review with the patient. See Epic/Plan for complete list of medications. REVIEW OF SYSTEMS: Twelve-point systems reviewed and positive as above in Interval History. All other systems negative. PHYSICAL EXAMINATION: General: Well-appearing male, in no acute distress. Vital Signs: Blood pressure 168/93, weight 65 kg. HEENT: Pupils are equal, round, and reactive to light and accommodation. Sclerae anicteric. Edentulous. Neck: Supple without lymphadenopathy. Cardiac: S1 and S2. Regular rate without murmur or gallop. Lungs: Clear to auscultation bilaterally. Abdomen: Soft, nontender, and nondistended with positive bowel sounds. No hepatosplenomegaly. Extremities: Lower extremities without edema. Palpable pulses. Skin: Unremarkable. Neurologic: Grossly intact. No neurological deficit. LABORATORY DATA: White count today is 13.4, hemoglobin 13.9, platelet count of 362,000, with a normal differential. Electrolytes and liver function tests are within normal limits except for an elevated CO2 of 36 fromhis underlying chronic lung disease. Creatinine 0.77, glucose 258, alk phos of 170, ALT of 62, and AST of 42, all unchanged from previous labs. IMPRESSION: 1. Acute myeloid leukemia. 2. Currently status post matched sibling allogeneic transplant with Bu/Cy conditioning regimen 4730days ago. 3. Extensive chronic sxnms-jyqzba-qvwz disease involving his lungs, eyes, and mouth. 4. Severe chronic obstructive pulmonary disease from 120 pack-year history of smoking. 5. Edentulous with multiple problems with his teeth over the years. 6. His last imaging studies, performed in March 2022, demonstrating unchanged 2 right upper lobe spiculated pulmonary nodules, which are indeterminate but could represent focal scarring. He will need those followed up. He is also status post a laparoscopic cholecystectomy. 7. The last issue is that he cannot afford his inhaler. He has [employer], and he needs an inhaler that does not run out immediately, and the albuterol inhaler costs him 50 dollars every time he gets it. He cannot afford it, and so we will see if we can get him an alternative. ELECTRONICALLY SIGNED - 10/22/2022 02:38 PM Josué Del Valle M.D., Ph.D. Chief, Division of Oncology/user experience architect Section of BMT & Leukemia CHRISTOPHER/ethan INUOUS IMPROVEMENT BLACK BELT documented in this encounter Nursing Notes * Anaid Polanco RN - 10/22/2022 10:00 AM CST Patient seen in clinic with Dr. Del Valle TODAY: [phone] Per patient, copay for albuterol inhaler is too expensive at $50/month. Increased trelegy and sent another script for albuterol. Provided GoodRx coupon as well. ROV 3 months INUOUS IMPROVEMENT BLACK BELT INUOUS IMPROVEMENT BLACK BELT documented in this encounter Plan of Treatment Not on file documented as of this encounter Results * Cytomegalovirus (CMV) DNA PCR, quantitative Blood (02/18/2023 9:56 AM CDT) CMV DNA Not Detected ZULEMA DENT Comment: Interpretive Data: The quantifiable range of this assay is 34 IUnits/mL to 10,000,000 IUnits/mL (1.53 log IUnits/mL to 7.0 log IUnits/mL). Testing was performed by the MICHEL 6800 CMV Test ([employer] Testing performed at [facility]. Current interpretive data was last revised on 2021. Blood 02/18/2023 9:56 AM CDT 02/18/2023 10:52 AM CDT N[address]isa [address] RD MANAGER LAB MICROBIOLOGY - GENERA L ORDERABLES Final Result [facility] Department [place] [address] * Lactate dehydrogenase (LD) (02/18/2023 9:56 AM CDT) Lactate dehydrogenase (LDH) 174 100 - 250 Units/L ZULEMA DENT Comment:Testing performed by : [facility], [address] [place] [phone] Blood 02/18/2023 9:56 AM CDT 02/18/2023 10:10 AM CDT us Narcisa Kilgore RD MANAGER LAB BLOOD ORDERABLES Pilar armas Result [facility] Department [place] [address] * (ABNORMAL) Comprehensive metabolic panel (02/18/2023 9:56 AM CDT) Sodium 140 135 - 145 mmol/L ZULEMA DENT Comment:Testing performed by : [facility], [address] [place] [phone] Potassium, pl 4.5 3.3 - 4.9 mmol/L [facility] Comment:Testing performed by : [facility], [address] [place] [phone] Chloride 100 97 - 110 mmol/L [facility] Comment:Testing performed by : [facility], [address] [place] [phone] CO2 29 22 - 32 mmol/L ZUELMA DENT Comment:Testing performed by : [facility], [address] [place] [phone] Anion gap 11 2 - 15 mmol/L [facility] Comment:Testing performed by : [facility], [address] [place] [phone] BUN 11 8 - 25 mg/dL [facility] Comment:Testing performed by : [facility], [address] [place] [phone] Creatinine 0.90 0.80 - 1.30 mg/dL [facility] Comment:Testing performed by : [facility], [address] [place] [phone] Glucose 140 70 - 199 mg/dL [facility] Comment: Interpretive Data Fasting glucose >/= 126 [...] was last revised 2022. Testing performed by: [facility], [address] [place] [phone] Calcium 10.1 8.5 - 10.3 mg/dL [facility] Comment:Testing performed by : [facility], [address] [place] [phone] Bilirubin, total 0.3 0.1 - 1.2 mg/dL [facility] Comment:Testing performed by : [facility], [address] [place] [phone] Protein, pl 8.0 6.5 - 8.5 g/dL [facility] Comment:Testing performed by : [facility], [address] [place] [phone] Albumin 4.2 3.5 - 5.0 g/dL [facility] Comment:Testing performed by : [facility], [address] [place] [phone] Alk phos 143(H) 40 - 130 Units/L [facility] Comment:Testing performed by : [facility], [address] [place] [phone] ALT 11 7 - 55 Units/L [facility] Comment:Testing performed by : [facility], [address] [place] [phone] AST 21 10 - 50 Units/L [facility] Comment:Testing performed by : [facility], [address] [place] [phone] Blood 02/18/2023 9:56 AM CDT 02/18/2023 10:10 AM CDT us Narcisa Kilgore RD MANAGER LAB BLOOD ORDERABLES Pilar l Result [facility]MA [facility] Department [place] [address] * (ABNORMAL) CBC with auto differential (02/18/2023 9:56 AM CDT) WBC 13.9(H) 3.8 - 9.8 K/cumm [facility] Comment:Testing performed by : [facility], [address] [place], [place] [phone] Hgb 13.7(L) 13.8 - 17.2 g/dL [facility] Comment:Testing performed by : [facility], [address] [place], [place] [phone] Hct 39.9(L) 40.7 - 50.3 % [facility]ER [facility]J Comment:Testing performed by : [facility], [address] [place] [address] Plt 367 140 - 440 K/cumm [facility] Comment:Testing performed by : [facility], [address] [place] [address] MPV 7.9 6.8 - 10.4 fL [facility]J Comment:Testing performed by : [place] [address] RBC 3.82(L) 4.50 - 5.70 M/cumm [facility]J Comment:Testing performed by : [place] [address] MCV 104.2(H) 80.0 - 97.6 fL [facility] Comment:Testing performed by : [place] [address] MCH 35.7(H) 26.7 - 33.7 pg [facility]ERNER BJ Comment:Testing performed by : [place] [address] MCHC 34.3 32.7 - 35.5 g/dL [facility] Comment:Testing performed by : [place] [address] RDW CV 12.8 11.8 - 14.6 % [facility] Comment:Testing performed by : [place] [address] NRBC abs 0.01 0.00 - 0.01 K/cumm [facility] Comment:Testing performed by : [place] [address] Blood 02/18/2023 9:56 AM CDT 02/18/2023 10:10 AM CDT us Narcisa Kilgore RD MANAGER LAB BLOOD ORDERABLES Pilar armas Result [facility] Department [place] [address] documented in this encounter Visit Diagnoses Diagnosis 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)- Primary Ervgl-djqtzb-ncvj disease (HCC) 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HCC) Chronic obstructive pulmonary disease, unspecified COPD type (HCC) documented in this encounter Discontinued Medications Medication Sig Discontinue Reason Start Date End Da te Trelegy Ellipta 100-62.5-25 mcg inhalerIndications:Bron hospasm Prevention with COPD Inhale 1 puff daily Therapy completed 10/05/2022 10/22/2022 albuterol HFA (PROVENTIL HFA,VENTOLIN HFA,PROAIR HFA) 90 mcg/actuation inhalerIndications:Chron ic Obstructive Pulmonary Disease Inhale 2 puffs every 4 (four) hours as needed for wheezing 02/16/2022 10/22/2022 documented as of this encounter Orders Appointment Requests Count Last Ordered Date Fi rst Ordered Date ONCBCN CLINIC APPOINTMENT REQUEST 2 023 10/22/2022 ONCBCN LAB APPOINTMENT 1 02/18/2023 documented in this encounter Care Teams Day Care Provider Relationship Specialty Start Date End Date Kirt Lindsay DO PCP - General Internal Medicine 02/02/21 Josué Del Valle MD PhD Medical Oncologist/Dental Technician [employer] [facility] 08/26/19 Tay Charlton MD Consulting Physician Gastroenterology 12/03/21 06/11/23 Halie Khan MD [address] [address] Consulting Physician Pulmonary Disease 12/12/21 3 Ant Starks MD [address] [facility] [address] [facility] [address] [place] [address] Consulting Physician Transplant Hepatology 01/12/22 documented as of this encounter
--- OUTSIDE RECORDS SUMMARY | 2024-11-22 10:53 | XMS_ITS | Encounter Summary ---
Author Organization [facility] Healthcare Address [address] [place] [address] Care Team Providers Care Dice Spotter Name Role Phone Josué Del Valle MD PhD Unavailable [phone] Kirt Lindsay DO Primary Care Provider [phone] Tay Charlton MD Unavailable [phone] Halie Khan MD Unavailable [phone] Ant Starks MD Unavailable [phone] Encounter Details Date Type Department Care Team (Latest Contact Info) Description 02/18/2023 8:36 AM CDT - 02/18/2023 11:59 PM CDT Hospital Encounter [facility] (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 No / Unsure 02/18/2023 10:09 AM CDT documented as of this encounter Medications at Time of Discharge cholecalciferol (VITAMIN D-3) 25 mcg (1,000 unit) tablet Take 2 tablets (2,000 Units total) by mouth every morning 11/13/20 21 flash glucose scanning reader (KupiKupon Evaristo 2 [place]) [facility] Use to test blood glucose continuously 1 [...] mg tabletIndications:AML (acute myeloid leukemia) in remission ([facility]) TAKE 1 TABLET(400 MG) BY MOUTH EVERY 8 HOURS 270 tablet 1 06/11/20 22 024 albuterol HFA (PROVENTIL HFA,VENTOLIN HFA,PROAIR HFA) 90 mcg/actuation inhalerIndications:Chron ic obstructive pulmonary disease, unspecified COPD type ([facility]) Inhale 2 puffs every 6 (six) hours as needed for wheezing 1 each 3 10/22/20 22 023 aspirin 81 mg enteric coated tablet Take 1 tablet (81 mg total) by mouth every morning 01/01/20 23 024 atorvastatin (LIPITOR) 40 mg tabletIndications:AML (acute myeloid leukemia) in remission ([facility]),Type 2 diabetes mellitus with hyperglycemia, with long-term current use of insulin ([facility]),Mgavs-ohkpzo-olbw disease ([facility]),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[facility]),Pure hypercholesterolemia Take 1 tablet (40 mg total) by mouth daily 30 tablet 6 01/15/20 20 024 blood-glucose meter miscIndications:Type 2 diabetes mellitus with hyperosmolarity 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, with long-term current use of insulin ([facility]) 1 Device 3 (three) times [...] unit capsuleIndications:AML (acute myeloid leukemia) in remission ([facility]),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[facility]),Vitamin D deficiency TAKE 1 CAPSULE BY MOUTH ONCE A WEEK DIRECTED 12 capsule 3 10/24/20 21 024 flash glucose sensor (FreeStyle Evaristo 2 Sensor) kit Change sensor every 14 days 2 kit 11 03/17/20 23 024 furosemide (LASIX) 20 mg tabletIndications:Type 2 diabetes mellitus with hyperosmolarity 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, with long-term current use of insulin ([facility]) Take 1 tablet (20 mg total) by mouth daily As needed. 30 tablet 01/15/20 20 024 gabapentin (NEURONTIN) 300 mg capsuleIndications:AML (acute myeloid leukemia) in remission ([facility]) TAKE 1 CAPSULE(300 MG) BY MOUTH FOUR TIMES DAILY 120 capsule 1 02/02/20 23 023 insulin glargine (LANTUS, BASAGLAR) 100 unit/mL (3 mL) pen for injectionIndications:Typ e 2 diabetes mellitus with hyperosmolarity 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, with long-term current use of insulin ([facility]) INJECT 15 UNITS NIGHTLY SUB-Q. 1 pen 5 02/04/20 21 024 insulin lispro (HumaLOG, ADMELOG) 100 unit/mL pen for injectionIndications:Typ e 2 diabetes mellitus with hyperosmolarity 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, with long-term current use of insulin ([facility]) INJECT 5-10 UNITS TID WITH MEALS PLUS SLIDING SCALE. TDD OF 35 UNITS. 10 pen 6 02/04/20 21 024 montelukast (SINGULAIR) 10 mg tabletIndications:AML (acute myeloid leukemia) in remission ([facility]),Xzjyh-mwnern-bgkc disease (HCC) Take 1 tablet (10 mg total) by mouth daily 90 tablet 1 06/26/20 22 024 mycophenolate mofetil (CELLCEPT) 500 mg tabletIndications:AML (acute myeloid leukemia) in remission ([facility]),Hndzj-ukjhun-sqna disease (HCC) TAKE 2 TABLETS(1000 MG) BY MOUTH TWICE DAILY 180 tablet 1 11/27/19 23 023 ondansetron ODT (ZOFRAN-ODT) 4 mg disintegrating tabletIndications:Preven tion of Post-Operative Nausea and Vomiting Take 1 tablet (4 mg total) by mouth every 8 (eight) hours as needed for nausea or vomiting 20 tablet 01/12/20 22 024 predniSONE (DELTASONE) 10 mg tabletIndications:Chroni c obstructive pulmonary disease, unspecified COPD type ([facility]) Take 40mg (4 tablets) daily for 5 days. THEN take 30mg (3 tablets) daily for 5 days. THEN Take 20mg (2 tablets) daily for 5 days. THEN take 10mg (1 tablet) for 5 days. THEN stop. 50 tablet 10/19/20 22 023 rivaroxaban (Xarelto) 20 mg tabletIndications: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) Take 1 tablet (20 mg total) by mouth daily 30 tablet 1 02/08/20 22 023 tacrolimus (PROGRAF) 0.5 mg immediate-release capsuleIndications:AML (acute myeloid leukemia) in remission ([facility]) TAKE 1 CAPSULE BY MOUTH EVERY OTHER DAY 15 capsule 3 10/04/20 22 023 traMADoL (ULTRAM) 50 mg tablet Take 1 tablet (50 mg total) by mouth every 6 (six) hours 10 tablet 01/12/20 22 024 Trelegy Ellipta 200-62.5-25 mcg inhalerIndications:Chron ic obstructive pulmonary disease, unspecified COPD type ([facility]) INHALE 1 PUFF BY MOUTH DAILY 60 each 3 02/02/20 23 023 voriCONAZOLE (VFEND) 200 mg tabletIndications:stem Cell Transplant [...] CYTOMEGALOVIRUS (CMV) DNA, QUANT GEN LAB Routine 02/18/2023 9:56 AM CDT AML (acute myeloid leukemia) in remission ([facility]) EGFR Routine 02/18/2023 9:56 AM CDT AML (acute myeloid leukemia) in remission ([facility]) DIFFERENTIAL AUTO Routine 02/18/2023 9:5 6 AM CDT AML (acute myeloid leukemia) in remission ([facility]) CBC WITH AUTO DIFFERENTIAL Routine 02/18/2023 9:56 AM CDT AML (acute myeloid leukemia) in remission ([facility]) TACROLIMUS LEVEL, RANDOM Routine 02/18/2023 9:56 AM CDT AML (acute myeloid leukemia) in remission ([facility]) VITAMIN D 25 HYDROXY STAT 02/18/2023 9:56 AM CDT 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[facility]) Other osteoporosis without current pathological fracture Type 2 diabetes mellitus with hyperosmolarity 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, with long-term current use of insulin ([facility]/HCC) ([facility]) TSH STAT 02/18/2023 9:56 AM CDT 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[facility]) Other osteoporosis without current pathological fracture Type 2 diabetes mellitus with hyperosmolarity 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, with long-term current use of insulin (CMS/HCC) (HCC) T4, FREE STAT 02/18/2023 9:56 AM CDT 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HCC) Other osteoporosis without current pathological fracture Type 2 diabetes mellitus with hyperosmolarity 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, with long-term current use of insulin (CMS/HCC) (HCC) LACTATE DEHYDROGENASE Routine 02/18/2023 9:56 AM CDT 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) LIPID PANEL STAT 02/18/2023 9:56 AM CDT 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HCC) Other osteoporosis without current pathological fracture Type 2 diabetes mellitus with hyperosmolarity 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, with long-term current use of insulin (CMS/HCC) (HCC) COMPREHENSIVE METABOLIC PANEL Routine 02/18/2023 9:56 AM CDT 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) documented in this encounter Results * eGFR (02/18/2023 9:56 AM CDT) [facility] eGFR >90 90 - 130 mL/min/1. 73 [...] was last reviewed 2021. Testing performed by: [facility], [address] [place] [phone] Blood 02/18/2023 9:56 AM CDT 02/18/2023 10:10 AM CDT us Narcisa Kilgore NP LAB BLOOD ORDERABLES Pilar armas Result ZULEMA DENT [facility] Department [place] [address] * (ABNORMAL) Differential, auto (02/18/2023 9:56 AM CDT) Neutrophil abs 8.1(H) 1.8 - 6.6 K/cumm CERAVTAR BJ Comment:Testing performed by : [facility], [address] [place] [phone] Lymphocyte abs 4.1(H) 1.2 - 3.3 K/cumm CERAVTAR BJ Comment:Testing performed by : [facility], [address] [place] [phone] Monocyte abs 1.3(H) 0.2 - 1.2 K/cumm CERAVTAR BJ Comment:Testing performed by : [facility], [address] [place] [phone] Eosinophil abs 0.3 0.0 - 0.5 K/cumm CERAVTAR BJ Comment:Testing performed by : [facility], [address] [place] [phone] Basophil abs 0.1 0.0 - 0.2 K/cumm CERAVTAR BJ Comment:Testing performed by : [address] [phone] Neutrophil pct 58.1 % CERAVTAR BJ Comment: Interpretive Data Percent cell count reference ranges are not reported, since discordance with absolute values may lead to misinterpretation of CBC data. Current Interpretive Data was last revised on 2018. Testing performed by: [facility], [address] [place] [phone] Lymphocyte pct 29.4 % ZULEMA DENT Comment: Interpretive Data Percent cell count reference ranges are not reported, since discordance with absolute values may lead to misinterpretation of CBC data. Current Interpretive Data was last revised on 2018. Testing performed by: [facility], [address] [place] [phone] Monocyte pct 9.2 % ZULEMA DENT Comment:Testing performed by : [facility], [address] [place] [phone] Eosinophil pct 2.4 % ZULEMA DENT Comment:Testing performed by : [facility], [address] [place] [phone] Basophil pct 0.9 % ZULEMA DENT Comment:Testing performed by : [facility], [address] [place] [phone] Blood 02/18/2023 9:56 AM CDT 02/18/2023 10:10 AM CDT Narcisa Kilgore DAIRY FEED SALES CONSULTANT LAB BLOOD ORDERABLES Pilar l Result [facility] One [facility] Department [place] [address] * (ABNORMAL) CBC with auto differential (02/18/2023 9:56 AM CDT) WBC 13.9(H) 3.8 - 9.8 K/cumm ZULEMA DENT Comment:Testing performed by : [facility], [address] [place] [phone] Hgb 13.7(L) 13.8 - 17.2 g/dL ZULMEA DENT Comment:Testing performed by : [address] [phone] Hct 39.9(L) 40.7 - 50.3 % ZULEMA DENT Comment:Testing performed by : [facility], [address] [place] [phone] Plt 367 140 - 440 K/cumm CERAVTAR [facility] Comment:Testing performed by : [facility], [address] [place] [phone] MPV 7.9 6.8 - 10.4 fL CERAVTAR [facility] Comment:Testing performed by : [facility], [address] [place], [place] [phone] RBC 3.82(L) 4.50 - 5.70 M/cumm ZULEMA BJ Comment:Testing performed by : [facility], [address] [place], [place] [phone] MCV 104.2(H) 80.0 - 97.6 fL ZULEMA [facility] Comment:Testing performed by : [facility], [address] [place] [phone] MCH 35.7(H) 26.7 - 33.7 pg ZULEMA [facility] Comment:Testing performed by : [facility], [address] [place] [phone] MCHC 34.3 32.7 - 35.5 g/dL CERAVTAR [facility] Comment:Testing performed by : [address] [phone] RDW CV 12.8 11.8 - 14.6 % [facility] Comment:Testing performed by : [address] [phone] NRBC abs 0.01 0.00 - 0.01 K/cumm ZULEMA [facility] Comment:Testing performed by : [facility], [address] [place] [phone] Blood 02/18/2023 9:56 AM CDT 02/18/2023 10:10 AM CDT us Narcisa Kilgore DAIRY FEED SALES CONSULTANT LAB BLOOD ORDERABLES Pilar l Result [facility] One [facility] Department [place] [address] * (ABNORMAL) Comprehensive metabolic panel (02/18/2023 9:56 AM CDT) Sodium 140 135 - 145 mmol/L CERNER [facility] Comment:Testing performed by : [facility], [address] [place] [phone] Potassium, pl 4.5 3.3 - 4.9 mmol/L CERNER BJ Comment:Testing performed by : [facility], [address] [place] [phone] Chloride 100 97 - 110 mmol/L CERNER BJ Comment:Testing performed by : [facility], [address] [place] [phone] CO2 29 22 - 32 mmol/L CERNER BJ Comment:Testing performed by : [facility], [address] [place] [phone] Anion gap 11 2 - 15 mmol/L CERNER BJ Comment:Testing performed by : [address] [phone] BUN 11 8 - 25 mg/dL CERNER BJ Comment:Testing performed by : [facility], [address] [place] [phone] Creatinine 0.90 0.80 - 1.30 mg/dL CERNER [facility] Comment:Testing performed by : [facility], [address] [place] [phone] Glucose 140 70 - 199 mg/dL CERNER [facility] Comment: Interpretive Data Fasting glucose >/= [...] was last revised 2022. Testing performed by: [address] [phone] Calcium 10.1 8.5 - 10.3 mg/dL CERNER [facility] Comment:Testing performed by : [facility], [address] [place] [phone] Bilirubin, total 0.3 0.1 - 1.2 mg/dL ZULEMA [facility] Comment:Testing performed by : [facility], [address] [place] [phone] Protein, pl 8.0 6.5 - 8.5 g/dL ZULEMA [facility] Comment:Testing performed by : [facility], [address] [place] [phone] Albumin 4.2 3.5 - 5.0 g/dL ZULEMA [facility] Comment:Testing performed by : [facility], [address] [place] [phone] Alk phos 143(H) 40 - 130 Units/L ZULEMA [facility] Comment:Testing performed by : [facility], [address] [place] [phone] ALT 11 7 - 55 Units/L ZULEMA [facility] Comment:Testing performed by : [facility], [address] [place] [phone] AST 21 10 - 50 Units/L ZULEMA [facility] Comment:Testing performed by : [facility], [address] [place] [phone] Blood 02/18/2023 9:56 AM CDT 02/18/2023 10:10 AM CDT Narcisa Kilgore DAIRY FEED SALES CONSULTANT LAB BLOOD ORDERABLES Pilar l Result [facility] One [facility] Department [place] [address] * Lactate dehydrogenase (LD) (02/18/2023 9:56 AM CDT) Lactate dehydrogenase (LDH) 174 100 - 250 Units/L ZULEMA [facility] Comment:Testing performed by : [facility], [address] [place] [phone] Blood 02/18/2023 9:56 AM CDT 02/18/2023 10:10 AM CDT Narcisa Kilgore NP LAB BLOOD ORDERABLES Pilar l Result Performing Organization Address [facility] Co de Phone Number [facility] One [facility] [place] [address] * Cytomegalovirus (CMV) DNA PCR, quantitative Blood (02/18/2023 9:56 AM CDT) CMV DNA Not Detected ZULEMA [facility] Comment: Interpretive Data: The quantifiable range of this assay is 34 IUnits/mL to 10,000,000 IUnits/mL (1.53 log IUnits/mL to 7.0 log IUnits/mL). Testing was performed by the MICHEL 6800 CMV Test ([employer] Testing performed at [facility]. Current interpretive data was last revised on 2021. Blood 02/18/2023 9:56 AM CDT 02/18/2023 10:52 AM CDT Narcisa Kilgore NP LAB MICROBIOLOGY - GENERA L ORDERABLES Final Result Performing Organization Address [facility] Co de Phone Number [facility] One [facility] [place] [address] * Tacrolimus level random (02/18/2023 9:56 AM CDT) Pathologist [facility] Tacrolimus random <1.0 ng/mL ZULEMA [facility] Comment: Undetectable. ??Please verify that the correct immunosuppressant test was requested. Interpretive Data Testing performed by liquid chromatography-tandem mass spectrometry. ??Therapeutic concentrations vary depending on type of transplanted organ and time elapsed since transplant. ??Typical trough concentrations range from 5-15 ng/mL. ??This test was developed and its performance characteristics determined by the [facility] consistent with CLIA requirements. ??This test has not been cleared or approved by the [place] Food and Drug administration. ??Current interpretive data last reviewed 2020. Blood 02/18/2023 9:56 AM CDT 02/18/2023 10:34 AM CDT Narcisa Kilgore DAIRY FEED SALES CONSULTANT LAB BLOOD ORDERABLES Pilar l Result Performing Organization Address [facility] Co de Phone Number [facility] [place] [address] * T4, free (02/18/2023 9:56 AM CDT) Free T4 1.41 0.90 - 1.70 ng/dL [facility] Blood 02/18/2023 9:56 AM CDT 02/18/2023 10:[address] Montejo MD LAB BLOOD ORDERABLES Final Resu lt Performing Organization Address [facility] de Phone Number [facility] [place] [address] * (ABNORMAL) TSH (02/18/2023 9:56 AM CDT) Thyroid Stimulating Hormone 0.29(L) 0.30 - 4.20 mcIUnit/mL [facility] Blood 02/18/2023 9:56 AM CDT 02/18/2023 10:[address] Montejo MD LAB BLOOD ORDERABLES Final Resu lt Performing Organization Address [facility] Co de Phone Number [facility] Department [place] [employer] [place] [address] * Vitamin D 25 hydroxy (02/18/2023 9:56 AM CDT) Vitamin D 25-OH 46 30 - 80 ng/mL [facility] Blood 02/18/2023 9:56 AM CDT 02/18/2023 10:[address] Montejo MD LAB BLOOD ORDERABLES Final Resu lt Performing Organization Address [facility] Co de Phone Number ZULEMA DENT One [facility] Department [place] [address] * Lipid panel (02/18/2023 9:56 AM CDT) Cholesterol 122 30 - 199 mg/dL ZULEMA DENT Comment: Interpretive Data Ages < or = [...] Data was last revised on 2018. Triglycerides 129 <=149 mg/dL ZULEMA DENT Comment: Interpretive Data Ages < or = [...] Data was last revised on 2018. HDL 40 >=40 mg/dL [facility] Comment: Interpretive Data Ages < or = [...] was last revised on 2018. LDL, calculated 56 <=129 mg/dL [facility] Comment: Interpretive Data Ages < or = [...] was last revised on 2018. Non-HDL Cholesterol 82 mg/dL [facility] Comment: Interpretive Data Ages < or = [...] was last revised on 2018. Chol/HDL ratio 3 ZULEMA [facility] Blood 02/18/2023 9:56 AM CDT 02/18/2023 10:[address] Montejo MD LAB BLOOD ORDERABLES Final Resu lt [facility] One [facility] Department [place] [address] documented in this encounter Visit Diagnoses Diagnosis 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HCC) Other osteoporosis without current pathological fracture Type 2 diabetes mellitus with hyperosmolarity 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, with long-term current use of insulin (HCC) 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) documented in this encounter Care Teams Dice Spotter Relationship Specialty Start Date End Date Kirt Lindsay DO PCP - General Internal Medicine 02/02/21 Josué Del Valle MD PhD Medical Oncologist/Program Consultant Medical Oncology 08/26/19 Tay Charlton MD Consulting Physician Gastroenterology 12/03/21 06/11/23 Halie Khan MD [address] [place] [address] Consulting Physician Pulmonary Disease 12/12/21 3 Ant Starks MD [address] [place], [place] [id number] Consulting Physician Transplant Hepatology 01/12/22 documented as of this encounter
--- OUTSIDE RECORDS SUMMARY | 2024-11-22 10:53 | XMS_ITS | Encounter Summary ---
Author Organization [facility] Address [address] [place] [address] Phone Care Team Providers Care Treating Engineer Name Role Phone Josué Del Valle MD PhD Unavailable [phone] Kirt Lindsay DO Primary Care Provider [phone] Tay Charlton MD Unavailable [phone] Halie Khan MD Unavailable [phone] StarksAnt goldman MD Unavailable [phone] Encounter Details Date Type Department Care Team (Late st Contact Info) Description 10/18/2022 Telephone [facility] Bone Marrow Transplant [facility] 7th Floor, [place] [address] Melody Bolanos V. 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 THEN take 30mg (3 tablets) daily for 5 days. THEN Take 20mg (2 tablets) daily for 5 days. THEN take 10mg (1 tablet) for 5 days. THEN stop. 50 tablet 10/19/2022 05/02/2023 documented in this encounter Miscellaneous Notes * Telephone Encounter - Anaid Polanco RN - 10/19/2022 2:46 PM GEOSPATIAL TECHNICIAN LVM for patient on taper regimen... Take 40mg (4 tablets) daily for 5 days. THEN take 30mg (3 tablets) daily for 5 days. THEN Take 20mg(2 tablets) daily for 5 days. THEN take 10mg (1 tablet) for 5 days. THEN stop. Sent to his pharmacy. PATIAL TECHNICIAN * Telephone Encounter - Anaid Polanco RN - 10/18/2022 3:46 PM GEOSPATIAL TECHNICIAN Per patient, he was given 50mg prednisone X5 days from OSH. He is asking for a prednisone taper. Will defer to Jame DÍAZ or Dr. Del Valle for taper recommendations. Told patient will call him back with an answer. PATIAL TECHNICIAN documented in this encounter Plan of Treatment Not on file documented as of this encounter Visit Diagnoses Diagnosis Chronic obstructive pulmonary disease, unspecified COPD type (HCC)- Primary documented in this encounter Care Teams Treating Engineer Relationship Specialty Start Date End Date Kirt Lindsay DO PCP - General Internal Medicine 02/02/21 Josué Del Valle MD PhD Medical Oncologist/Magnetic Resonance Imaging Director Medical Oncology 08/26/19 Tay Charlton MD Consulting Physician Gastroenterology 12/03/21 06/11/23 Halie Khan MD [address] [address] Consulting Physician Pulmonary Disease 12/12/21 3 Ant Starks MD [address] [facility] [address] [place], [place] [address] Consulting Physician Transplant Hepatology 01/12/22 documented as of this encounter
--- OUTSIDE RECORDS SUMMARY | 2024-11-22 10:53 | XMS_ITS | Encounter Summary ---
Author Organization [facility] Address [address] [place] [address] Phone Care Team Providers Care Social Secretary Name Role Phone Josué Del Valle MD PhD Unavailable [phone] Kirt Lindsay DO Primary Care Provider [phone] Tay Charlton MD Unavailable [phone] Halie Khan MD Unavailable [phone] Ant Starks MD Unavailable [phone] Reason for Visit * Oncology (Routine) - Closed Specialty Diagnoses / Procedures Referred By Contac t Referred To Contact Lab Diagnoses Type 2 diabetes mellitus with hyperosmolarity 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, with long-term current use of insulin (HCC) Osteopenia, unspecified location Procedures ONCBCN ARM DRAW APPT [facility] Scheduling [address] [place] [address] Phone: tel: [facility] Oncology [address] [facility] Advanced Medicine 7th [place] [address] [place] [address] Phone: tel: Referral ID Status Reason Start Date Expiration Date V isits Requested Visits Authorized [id number] Closed Specialty Services Required 11/23/2021 11/17/2023 99 99 Encounter Details Date Type Department Care Team (Late st Contact Info) Description 02/18/2023 10:00 AM CDT Lab [facility] Oncology [address] 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 Gender Identity Not on file Sexual [...] 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) Vitamin D deficiency Type 2 diabetes mellitus with other kidney complication, unspecified whether superintendent terminal insulin use (HCC) Other osteoporosis without current pathological fracture Other hyperlipidemia documented in this encounter Orders Appointment Requests Count Last Ordered Date Fi rst Ordered Date ONCBCN LAB APPOINTMENT 2 02/18/2023 documented in this encounter Care Teams Social Secretary Relationship Specialty Start Date End Date Kirt Lindsay DO PCP - General Internal Medicine 02/02/21 Josué Del Valle MD PhD Medical Oncologist/Picker Operator Medical Oncology 08/26/19 Tay Charlton MD Consulting Physician Gastroenterology 12/03/21 06/11/23 Halie Khan MD [address] [address] Consulting Physician Pulmonary Disease 12/12/21 3 Ant Starks MD [address] [address] Consulting Physician Transplant Hepatology 01/12/22 documented as of this encounter
--- OUTSIDE RECORDS SUMMARY | 2024-11-22 10:53 | XMS_ITS | Encounter Summary ---
Author Organization [facility] Address [address] [place] [address] Phone Care Team Providers Care Retail Supervisor Name Role Phone Josué Del Valle MD PhD Unavailable [phone] Kirt Lindsay DO Primary Care Provider [phone] Tay Charlton MD Unavailable [phone] Halie Khan MD Unavailable [phone] LorettoAnt MD Unavailable [phone] Reason for Visit * Oncology (Routine) - Closed Specialty Diagnoses / Procedures Referred By Contac t Referred To Contact Medical Oncology / Blood and Marrow Transplant Diagnoses 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 No / Unsure 02/18/2023 10:09 AM CDT documented as of this encounter Last Filed Vital Signs Vital Sign Reading Time Taken Comments Blood Pressure 110/74 02/18/2023 10:18 AM CDT Pulse 92 02/18/2023 10:18 AM CDT Temperature 36.2 ??C (97.2 ??F) 02/18/2023 10:12 AM C DT Respiratory Rate 18 02/18/2023 10:18 AM CDT Oxygen Saturation 97% 02/18/2023 10:18 AM CDT Inhaled Oxygen Concentration - - Weight 64.1 kg (141 lb 6.4 oz) 02/18/2023 10:12 AM CDT Height 177.5 cm (5' 9.88 ) 02/18/2023 10:12 AM C DT Body Mass Index 20.36 02/18/2023 10:12 AM CDT documented in this encounter Progress Notes * Josué Del Valle MD PhD - 02/18/2023 12:00 AM CDT PATIENT NAME: BRI JONES : 1965 ROSY: 02/18/2023 DIAGNOSIS: 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 TREATMENT HISTORY: 1. Induction with 7+3 and HiDAC consolidation x3. 2. Decitabine maintenance on the [facility] [address] protocol. 3. 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 TRANSPLANT HISTORY: Status post an allogeneic transplant with busulfan and Cytoxan on the [facility] allogeneic study with hissister, 08/27 match; with day 0 on 11/09/2009. INTERVAL HISTORY: Bri carries a diagnosis of AML. He is status post 7+3 and HiDAC induction consolidation, status post relapsed disease and AMD/MEC salvage chemotherapy, followed by an allogeneic stem cell transplant from a matched related sister after Bu/Cy conditioning regimen. 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 He has no evidence of recurrent disease. He is now 4849 days post transplant. He is here for routine follow-up. MEDICATIONS: Full medication review with the patient. See Epic/Plan for complete list of medications. REVIEW OF SYSTEMS: Twelve-point systems reviewed and positive as above in Interval History. All other systems negative. PHYSICAL EXAMINATION: General: Well-appearing male, in no acute distress. Vital Signs: Blood pressure 110/74. Weight 64 kg. HEENT: Pupils are equal, round, and reactive to light and accommodation. Sclerae anicteric. Neck: Supple without lymphadenopathy. Cardiac: S1 and S2. Regular rate without murmur or gallop. Lungs: Clear to auscultation bilaterally. Abdomen: Soft, nontender, and nondistended with positive bowel sounds. No hepatosplenomegaly. Extremities: Lower extremities without edema. Palpable pulses. Skin: Unremarkable. Neurologic: Grossly intact. No neurological deficit. LABORATORY DATA: White count today is 13.9, hemoglobin 13.7, platelet count 367,000, with normal differential. Comprehensive metabolic panel reveals all normal, except for slightly elevated alk phos of 143, which is improved from previous measurements. IMPRESSION: Acute myeloid leukemia, currently in remission, with relapsed disease and then transplanted from a matched sibling using Bu/Cy conditioning regimen 14 years ago, currently no evidence of disease. He has extensive chronic kjkcx-yexpss-hxin disease involving his mouth, eyes, skin, and lungs. He is oth erwise stable. His medications include MMF 500 b.i.d., prednisone, tacrolimus, Singulair, acyclovir, and voriconazole. ELECTRONICALLY SIGNED - 02/18/2023 11:42 AM Josué Del Valle M.D., Ph.D. Chief, Division of Oncology/palliative care nurse practitioner Section of BMT & Leukemia CHRISTOPHER/lw documented in this encounter Nursing Notes * Damari Sanchez RN - 02/18/2023 11:15 AM CDT TODAY: Recent admit at OSH for COPD Ex. On pred + albuterol + Antibiotic. +[phone] Follow-up: 3 month SB Needs ride assistance- contact SW documented in this encounter Plan of Treatment Not on file documented as of this encounter Results * Tacrolimus level random (06/12/2023 10:23 AM CDT) [facility] Tacrolimus random <1.0 ng/mL [facility] Comment: Undetectable. ??Please verify that the correct immunosuppressant test was requested. Interpretive Data Testing performed by liquid chromatography-tandem mass spectrometry. ??Therapeutic concentrations vary depending on type of transplanted organ and time elapsed since transplant. ??Typical trough concentrations range from 5-15 ng/mL. ??This test was developed and its performance characteristics determined by the [facility] consistent with CLIA requirements. ??This test has not been cleared or approved by the [place] Food and Drug administration. ??Current interpretive data last reviewed 2020. Blood 06/12/2023 10:2 3 AM CDT 06/12/2023 10:36 AM CDT Josué Del Valle MD PhD LAB BLOOD ORDERABLES Fin al Result Performing Organization Address [facility] Co de Phone Number [facility] Department [place] [address] * Cytomegalovirus (CMV) DNA PCR, quantitative Blood (06/12/2023 10:23 AM CDT) [facility] CMV DNA Not Detected [facility] Comment: Interpretive Data: The quantifiable range of this assay is 34 IUnits/mL to 10,000,000 IUnits/mL (1.53 log IUnits/mL to 7.0 log IUnits/mL). Testing was performed by the MICHEL [address] CMV Test ([employer] Testing performed at [facility]. Current interpretive data was last revised on 2021. Blood 06/12/2023 10:2 3 AM CDT 06/12/2023 10:43 AM CDT Josué Del Valle MD PhD LAB MICROBIOLOGY - GENER AL ORDERABLES Final Result Performing Organization Address [facility] Co de Phone Number [facility] Department [place] [address] * (ABNORMAL) Comprehensive metabolic panel (06/12/2023 10:23 AM CDT) [facility] Sodium 141 135 - 145 mmol/L [facility] Comment:Testing performed by : [facility], [address] [place] [phone] Potassium, pl 4.7 3.3 - 4.9 mmol/L [facility] Comment:Testing performed by : [facility], [address] [place] [phone] Chloride 99 97 - 110 mmol/L [facility] Comment:Testing performed by : [facility], [address] [place] [phone] CO2 27 22 - 32 mmol/L [facility] Comment:Testing performed by : [facility], [address] [place] [phone] Anion gap 15 2 - 15 mmol/L [facility] Comment:Testing performed by : [facility], [address] [place] [phone] BUN 16 6 - 25 mg/dL [facility] Comment:Testing performed by : [facility], [address] [place] [phone] Creatinine 0.87 0.80 - 1.30 mg/dL [facility] Comment:Testing performed by : [facility], [address] [place] [phone] Glucose 109 70 - 199 mg/dL CERNER [...] was last revised 2022. Testing performed by: [facility], [address] [place] [phone] Calcium 10.2 8.5 - 10.3 mg/dL [facility] Comment:Testing performed by : [address] [phone] Bilirubin, total 0.2 0.1 - 1.2 mg/dL [facility] Comment:Testing performed by : [facility], [address] [place] [phone] Protein, pl 8.6(H) 6.5 - 8.5 g/dL [facility] Comment:Testing performed by : [address] [address] Albumin 4.5 3.5 - 5.0 g/dL [facility] Comment:Testing performed by : [address] [address] Alk phos 183(H) 40 - 130 Units/L [facility] Comment:Testing performed by : [facility], [address] [place] [phone] ALT 37 7 - 55 Units/L [facility] Comment:Testing performed by : [facility], [address] [place] [address] AST 26 10 - 50 Units/L [facility] Comment:Testing performed by : [facility], [address] [place] [phone] Blood 06/12/2023 10:2 3 AM CDT 06/12/2023 10:26 AM CDT us Josué Del Valle MD PhD LAB BLOOD ORDERABLES Fin al Result [facility] [place] [address] * (ABNORMAL) CBC with auto differential (06/12/2023 10:23 AM CDT) WBC 9.5 3.8 - 9.8 K/cumm [facility] Comment:Testing performed by : [facility], [address] [place] [phone] Hgb 14.3 13.8 - 17.2 g/dL [facility] Comment:Testing performed by : [facility], [address] [place] [address] Hct 42.0 40.7 - 50.3 % [facility] Comment:Testing performed by : [facility], [address] [place] [phone] Plt 349 140 - 440 K/cumm [facility] Comment:Testing performed by : [address] [address] MPV 7.6 6.8 - 10.4 fL [facility] Comment:Testing performed by : [address] [address] RBC 3.99(L) 4.50 - 5.70 M/cumm [facility] Comment:Testing performed by : [facility], [address] [place], [place] [phone] MCV 105.4(H) 80.0 - 97.[address] [facility] Comment:Testing performed by : [facility], [address] [place], [place] [phone] MCH 36.0(H) 26.7 - 33.[address] [facility] Comment:Testing performed by : [facility], [address] [place], [place] [phone] MCHC 34.2 32.7 - 35.5 g/dL [facility] Comment:Testing performed by : [facility], [address] [place], [place] [phone] RDW CV 13.3 11.8 - 14.6 % [facility] Comment:Testing performed by : [facility], [address] [place], [place] [phone] NRBC abs 0.01 0.00 - 0.01 K/cumm [facility] Comment:Testing performed by : [facility], [address] [place], [place] [phone] Blood 06/12/2023 10:2 3 AM CDT 06/12/2023 10:26 AM CDT Josué Del Valle MD PhD LAB BLOOD ORDERABLES Fin al Result Performing Organization Address City/[facility]/ZIP Co de Phone Number [facility] Department [place] [address] * Lactate dehydrogenase (LD) (06/12/2023 10:23 AM CDT) Lactate dehydrogenase (LDH) 222 100 - 250 Units/L 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) documented in this encounter Orders Appointment Requests Count Last Ordered Date Fi rst Ordered Date ONCBCN CLINIC APPOINTMENT REQUEST 2 023 02/18/2023 ONCBCN LAB APPOINTMENT 1 06/12/2023 documented in this encounter Care Teams Retail Supervisor Relationship Specialty Start Date End Date Kirt Lindsay DO PCP - General Internal Medicine 02/02/21 Josué Del Valle MD PhD Medical Oncologist/Geoint Analyst Medical Oncology 08/26/19 Tay Charlton MD Consulting Physician Gastroenterology 12/03/21 06/11/23 Halie Khan MD [address] [place] [address] Consulting Physician Pulmonary Disease 12/12/21 3 Ant Starks MD [address] [place] [address] Consulting Physician Transplant Hepatology 01/12/22 documented as of this encounter
--- OUTSIDE RECORDS SUMMARY | 2024-11-22 10:53 | XMS_ITS | Encounter Summary ---
Author Organization [facility] Address [address] [place] [address] Phone Care Team Providers Care Die Repairer Stamping Name Role Phone Josué Del Valle MD PhD Unavailable [phone] Kirt Lindsay DO Primary Care Provider [phone] Tay Charlton MD Unavailable [phone] Halie Khan MD Unavailable [phone] StarksAnt goldman MD Unavailable [phone] Encounter Details Date Type Department Care Team (Late st Contact Info) Description 03/06/2023 Orders Only [facility] Bone [facility]row Transplant [address] [facility] Advanced [facility] 7th Floor, [place] [address] Damari Sanchez, RN [address] [place] [address] Social History Tobacco Use Types Packs/Day Years [...] on file 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 Gender Identity Not on file Sexual [...] on filedocumented in this encounter Care Teams Die Repairer Stamping Relationship Specialty Start Date End Date Kirt Lindsay DO PCP - General Internal Medicine 02/02/21 Josué Del Valle MD PhD Medical Oncologist/Content Designer Medical Oncology 08/26/19 Tay Charlton MD Consulting Physician Gastroenterology 12/03/21 06/11/23 Halie Khan MD [address] [address] Consulting Physician Pulmonary Disease 12/12/21 3 Ant Starks MD [address] [address] Consulting Physician Transplant Hepatology 01/12/22 documented as of this encounter
--- OUTSIDE RECORDS SUMMARY | 2024-11-22 10:53 | XMS_ITS | Encounter Summary ---
Author Organization [facility] Address [address] [facility] [address] [place] [address] Care Team Providers Care Tool Procurement Coordinator Name Role Phone Josué Del Valle MD PhD Unavailable [phone] Kirt Lindsay DO Primary Care Provider [phone] Tay Charlton MD Unavailable [phone] Halie Khan MD Unavailable [phone] FreetownAnt MD Unavailable [phone] Encounter Details Date Type Department Care Team (Late st Contact Info) Description 01/02/2023 Orders Only [facility] Cardiology [address] [facility] [address] [place] [address] Cruz Breen MD [address] [place] [address] Social History Tobacco Use Types Packs/Day Years [...] on file 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 Gender Identity Not on file Sexual Orientation Not on file documented as of this encounter Plan of Treatment Not on file documented as of this encounter Procedures Procedure Name Priority Date/Time Associated Diagnosis Comments CARDIOLOGY DOCUMENT SCAN Routine 12/31/2022 documented in this encounter Results * Cardiology Document Scan (12/31/2022) Anatomical Region Laterality Modality Other us Cruz Breen MD CV CARDIAC SERVICES PROC EDURES Final Result documented in this encounter Visit Diagnoses Not on filedocumented in this encounter Care Teams Tool Procurement Coordinator Relationship Specialty Start Date End Date Kirt Lindsay DO PCP - General Internal Medicine 02/02/21 Josué Del Valle MD PhD Medical Oncologist/Strategic Partnership Specialist Medical Oncology 08/26/19 Tay Charlton MD Consulting Physician Gastroenterology 12/03/21 06/11/23 Halie Khan MD [address] [place] [address] Consulting Physician Pulmonary Disease 12/12/21 3 Ant Starks MD [address] [place] [address] Consulting Physician Transplant Hepatology 01/12/22 documented as of this encounter
--- OUTSIDE RECORDS SUMMARY | 2024-11-22 10:53 | XMS_ITS | Encounter Summary ---
Author Organization [facility] Address [address] [facility] [address] [place] [address] Phone Care Team Providers Care Horticulture Teacher Name Role Phone Josué Del Valle MD PhD Unavailable [phone] Kirt Lidnsay DO Primary Care Provider [phone] Tay Charlton MD Unavailable [phone] Halie Khan MD Unavailable [phone] BruslyAnt MD Unavailable [phone] Reason for Referral * Diagnostic Imaging (Routine) - Closed Specialty Diagnoses / Procedures Referred By Contac t Referred To Contact Diagnoses 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HCC) Other osteoporosis without current pathological fracture Procedures Dexa Axial Skeleton Bone Density [address] MD Phone: tel: fax: [facility] (All Locations) Referral ID Status Reason Start Date Expiration Date Visits Re quested Visits Authorized [id number] Closed 02/15/2023 03/16/2024 1 1 Encounter Details Date Type Department Care Team (Late st Contact Info) Description 02/15/2023 Orders Only [facility] Endocrinology Metabolism and Lipid [address] [facility] 13th [place] [address] [place] [id number] Bonnie Lara RN 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HCC) (Primary Dx); Other osteoporosis without current pathological fracture; Type 2 diabetes mellitus with hyperosmolarity 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, with long-term current use of insulin ([facility]/HCC) (HCC) Social History Tobacco Use Types Packs/Day [...] on file 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 ?? Based on machine cross-calibration [...] by the International Society of Clinical Densitometry. [id number] us [address] Montejo MD IMG DXA PROCEDURES Final Result * Lipid panel (02/18/2023 9:56 AM CDT) [facility] Cholesterol 122 30 - 199 mg/dL ZULEMA [...] revised on 2018. HDL 40 >=40 mg/dL ZULEMA [facility] Comment: Interpretive Data Ages [...] on 2018. LDL, calculated 56 <=129 mg/dL [facility] Comment: Interpretive Data Ages < or = [...] revised on 2018. Non-HDL Cholesterol 82 mg/dL ZULEMA [facility] Comment: Interpretive Data Ages < or = [...] last revised on 2018. Chol/HDL ratio 3 [facility] Blood 02/18/2023 9:56 AM CDT 02/18/2023 10:[address] Montejo MD LAB BLOOD ORDERABLES Final Resu lt Performing Organization Address City/[facility]/ZIP Co de Phone Number [facility] [place] [address] * Vitamin D 25 hydroxy (02/18/2023 9:56 AM CDT) Vitamin D 25-OH 46 30 - 80 ng/mL [facility] Blood 02/18/2023 9:56 AM CDT 02/18/2023 10:[address] Montejo MD LAB BLOOD ORDERABLES Final Resu lt Performing Organization Address [facility] Co de Phone Number [facility] [place] [address] * (ABNORMAL) TSH (02/18/2023 9:56 AM CDT) Thyroid Stimulating Hormone 0.29(L) 0.30 - 4.20 mcIUnit/mL [facility] Blood 02/18/2023 9:56 AM CDT 02/18/2023 10:[address] Montejo MD LAB BLOOD ORDERABLES Final Resu lt Performing Organization Address City/[facility] Co de Phone Number [facility] [place] [address] * T4, free (02/18/2023 9:56 AM CDT) Free T4 1.41 0.90 - 1.70 ng/dL [facility] Blood 02/18/2023 9:56 AM CDT 02/18/2023 10:[address] Montejo MD LAB BLOOD ORDERABLES Final Resu lt ZULEMA [facility] [place] [address] documented in this encounter Visit Diagnoses Diagnosis 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HCC)- Primary Other osteoporosis without current pathological fracture Type 2 diabetes mellitus with hyperosmolarity 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, with long-term current use of insulin (HCC) 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HCC) Other osteoporosis without current pathological fracture Osteopenia of left hip Encounter for monitoring zoledronic acid therapy documented in this encounter Care Teams Horticulture Teacher Relationship Specialty Start Date End Date Kirt Lindsay DO PCP - General Internal Medicine 02/02/21 Josué Del Valle MD PhD Medical Oncologist/Lining Strap Closer Medical Oncology 08/26/19 Tay Charlton MD Consulting Physician Gastroenterology 12/03/21 06/11/23 Halie Khan MD [address] [address] Consulting Physician Pulmonary Disease 12/12/21 3 Ant Starks MD [address] [address] Consulting Physician Transplant Hepatology 01/12/22 documented as of this encounter
--- OUTSIDE RECORDS SUMMARY | 2024-11-22 10:54 | XMS_ITS | Encounter Summary ---
Author Organization [facility] Address [address] [place] [address] Phone Care Team Providers Care Spinning Lathe Operator Automatic Name Role Phone Josué Del Valle MD PhD Unavailable [phone] Kirt Lindsay DO Primary Care Provider [phone] Tay Charlton MD Unavailable [phone] Halie Khan MD Unavailable [phone] StarksAnt goldman MD Unavailable [phone] Encounter Details Date Type Department Care Team (Late st Contact Info) Description 10/17/2022 Telephone [facility] Bone [facility]row Trans[facility] 7th Floor, [place] [address] Melody Bolanos V. 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 he received IV steroids inpatient. COVID, Flu, RSV negative. Discharged today, he went home on PO steroids and albuterol and unknown antibiotics. States he feels better. Is having to monitor BG more closely with prednisone. Reports getting new teeth . Reached out to social work for ride assistance on Monday 10/22. GEMENT DEVELOPER documented in this encounter Plan of Treatment Not on file documented as of this encounter Visit Diagnoses Not on filedocumented in this encounter Care Teams Spinning Lathe Operator Automatic Relationship Specialty Start Date End Date Kirt Lindsay DO PCP - General Internal Medicine 02/02/21 Josué Del Valle MD PhD Medical Oncologist/Acupuncturist Medical Oncology 08/26/19 Tay Charlton MD Consulting Physician Gastroenterology 12/03/21 06/11/23 Halie Khan MD [address] [place], [place] [address] Consulting Physician Pulmonary Disease 12/12/21 3 Ant Starks MD [address] [place] [address] Consulting Physician Transplant Hepatology 01/12/22 documented as of this encounter
--- OUTSIDE RECORDS SUMMARY | 2024-11-22 10:54 | XMS_ITS | Encounter Summary ---
Author Organization [facility] Healthcare Address [address] [place] [address] Care Team Providers Care Vehicle Maintenance Supervisor Name Role Phone Josué Del Valle MD PhD Unavailable [phone] Kirt Lindsay DO Primary Care Provider [phone] Tay Charlton MD Unavailable [phone] Halie Khan MD Unavailable [phone] StarksAnt goldman MD Unavailable [phone] Encounter Details Date Type Department Care Team (Late st Contact Info) Description 05/11/2022 Telephone [facility] Social Work [address] [place] [address] Anna Vaughn LCSW Social History Tobacco Use [...] on file Legal Sex Male 10:48 AM TRAVEL OT Gender Identity Not on file Sexual Orientation Not on file documented as of this encounter Miscellaneous Notes * Telephone Encounter - Anna Vaughn LCSW - 05/11/2022 2:42 PM CDT SW attempted to call pt again to discuss ride assistance for upcoming appt on 05/18. SW left VM and will remain available for future assistance. ?? BRIGID Casarez, MARLIN documented in this encounter Plan of Treatment Not on file documented as of this encounter Visit Diagnoses Not on filedocumented in this encounter Care Teams Vehicle Maintenance Supervisor Relationship Specialty Start Date End Date Kirt Lindsay DO PCP - General Internal Medicine 02/02/21 Josué Del Valle MD PhD Medical Oncologist/Italian Teacher Medical Oncology 08/26/19 Tay Charlton MD Consulting Physician Gastroenterology 12/03/21 06/11/23 Halie Khan MD [address] [address] Consulting Physician Pulmonary Disease 12/12/21 3 Ant Starks MD [address] [address] Consulting Physician Transplant Hepatology 01/12/22 documented as of this encounter
--- OUTSIDE RECORDS SUMMARY | 2024-11-22 10:54 | XMS_ITS | Encounter Summary ---
Author Organization [facility] Healthcare Address [address] [place] [address] Care Team Providers Care Laborer Filter Plant Name Role Phone Josué Del Valle MD PhD Unavailable [phone] Kirt Lindsay DO Primary Care Provider [phone] Tay Charlton MD Unavailable [phone] Halie Khan MD Unavailable [phone] StarksAnt goldman MD Unavailable [phone] Encounter Details Date Type Department Care Team (Late st Contact Info) Description 10/15/2022 Telephone [facility] Social Work [address] [place] [address] Anna Vaughn LCSW Social History Tobacco Use [...] on file Legal Sex Male 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 SW left VM at mobile phone - [phone] as pt was unavailable. SW was unable to leave message on home phone - [phone] VM box was full. SW will follow up. BRIGID Casarez, CRIMINAL COURT JUDGE GY MEMBER documented in this encounter Plan of Treatment Not on file documented as of this encounter Visit Diagnoses Not on filedocumented in this encounter Care Teams Laborer Filter Plant Relationship Specialty Start Date End Date Kirt Lindsay DO PCP - General Internal Medicine 02/02/21 Josué Del Valle MD PhD Medical Oncologist/Director Of Veterans Affairs Medical Oncology 08/26/19 Tay Charlton MD Consulting Physician Gastroenterology 12/03/21 06/11/23 Halie Khan MD [address] [place] [address] Consulting Physician Pulmonary Disease 12/12/21 3 Ant Starks MD [address] [place] [address] Consulting Physician Transplant Hepatology 01/12/22 documented as of this encounter
--- OUTSIDE RECORDS SUMMARY | 2024-11-22 10:54 | XMS_ITS | Encounter Summary ---
Author Organization [facility] Address [address] [place] [address] Phone Care Team Providers Care Smasher Hand Name Role Phone Josué Del Valle MD PhD Unavailable [phone] Kirt Lindsay DO Primary Care Provider [phone] Tay Charlton MD Unavailable [phone] Halie Khan MD Unavailable [phone] StarksAnt goldman MD Unavailable [phone] Encounter Details Date Type Department Care Team (Late st Contact Info) Description 10/16/2022 Telephone [facility] Bone [facility]row 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 RITHM DEVELOPER * Telephone Encounter - Marisa Mcdermott - 10/16/2022 10:31 AM CST Patient being admitted to [facility] for exacerbation of his COPD. RITHM DEVELOPER documented in this encounter Plan of Treatment Not on file documented as of this encounter Visit Diagnoses Not on filedocumented in this encounter Care Teams Smasher Hand Relationship Specialty Start Date End Date Kirt Lindsay DO PCP - General Internal Medicine 02/02/21 Josué Del Valle MD PhD Medical Oncologist/Waiter Medical Oncology 08/26/19 Tay Charlton MD Consulting Physician Gastroenterology 12/03/21 06/11/23 Halie Khan MD [address] [place] [address] Consulting Physician Pulmonary Disease 12/12/21 3 Ant Starks MD [address] [facility] [address] [place] [address] Consulting Physician Transplant Hepatology 01/12/22 documented as of this encounter
--- OUTSIDE RECORDS SUMMARY | 2024-11-22 10:54 | XMS_ITS | Encounter Summary ---
Author Organization [facility] Address [address] [place] [address] Phone Care Team Providers Care Sap Portal Consultant Name Role Phone Josué Del Valle MD PhD Unavailable [phone] Kirt Lindsay DO Primary Care Provider [phone] Tay Charlton MD Unavailable [phone] Halie Khan MD Unavailable [phone] StarksAnt goldman MD Unavailable [phone] Encounter Details Date Type Department Care Team (Late st Contact Info) Description 06/01/2022 Orders Only [facility] Bone Marrow Transplant [address] [facility] Advanced Medicine 7th Floor, [place] [address] Anaid Polanco RN Social History Tobacco Use Types Packs/Day [...] on file Legal Sex Male 10:48 AM CIRCUS HAND Gender Identity Not on file Sexual Orientation Not on file documented as of this encounter Plan of Treatment Not on file documented as of this encounter Visit Diagnoses Not on filedocumented in this encounter Care Teams Sap Portal Consultant Relationship Specialty Start Date End Date Kirt Lindsay DO PCP - General Internal Medicine 02/02/21 Josué Del Valle MD PhD Medical Oncologist/Starbucks Barista Medical Oncology 08/26/19 Tay Charlton MD Consulting Physician Gastroenterology 12/03/21 06/11/23 Halie Khan MD [address] [address] Consulting Physician Pulmonary Disease 12/12/21 3 Ant Starks MD [address] [address] Consulting Physician Transplant Hepatology 01/12/22 documented as of this encounter
--- OUTSIDE RECORDS SUMMARY | 2024-11-22 10:54 | XMS_ITS | Encounter Summary ---
Author Organization [facility] Address [address] [place] [address] Phone Care Team Providers Care Room Attendant Name Role Phone Josué Del Valle MD PhD Unavailable [phone] Kirt Lindsay DO Primary Care Provider [phone] Tay Charlton MD Unavailable [phone] Halie Khan MD Unavailable [phone] StarksAnt goldman MD Unavailable [phone] Encounter Details Date Type Department Care Team (Late st Contact Info) Description 05/14/2022 Telephone [facility] Bone Marrow Transplant [address] [facility] Advanced [facility] 7th Floor, [place] [address] Melody Bolanos V. 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 ROV @ 10 on June 29 instead. States he will call if he needs to see us sooner. documented in this encounter Plan of Treatment Not on file documented as of this encounter Visit Diagnoses Not on filedocumented in this encounter Care Teams Room Attendant Relationship Specialty Start Date End Date Kirt Lindsay DO PCP - General Internal Medicine 02/02/21 Josué Del Valle MD PhD Medical Oncologist/Central Supply Worker Medical Oncology 08/26/19 Tay Charlton MD Consulting Physician Gastroenterology 12/03/21 06/11/23 Halie Khan MD [address] [address] Consulting Physician Pulmonary Disease 12/12/21 3 Ant Starks MD [address] [address] Consulting Physician Transplant Hepatology 01/12/22 documented as of this encounter
--- OUTSIDE RECORDS SUMMARY | 2024-11-22 10:54 | XMS_ITS | Encounter Summary ---
Author Organization [facility] Healthcare Address [address] [place] [address] Care Team Providers Care Java Solutions Architect Name Role Phone Josué Del Valle MD PhD Unavailable Kirt Lindsay DO Primary Care Provider [phone] Tay Charlton MD Unavailable [phone] Halie Khan MD Unavailable [phone] StarksAnt goldman MD Unavailable [phone] Encounter Details Date Type Department Care Team (Late st Contact Info) Description 10/18/2022 Documentation [facility] Social Work 1 [place] [address] Anna Vaughn LCSW Social History Tobacco Use [...] on file Legal Sex Male 10:48 AM BRUSH CUTTER Gender Identity Not on file Sexual Orientation Not on file documented as of this encounter Progress Notes * Anna Vaughn LCSW - 10/18/2022 8:55 AM CST SW called [employer] at [phone] and spoke novelties sales representative, Segun, to request ride for ptfor upcoming appt on 10/22. [employer] - has accepted round trip, tracking #[id number]. Medicaid ID: [id number] Software Systems Architect Time: 8:00am Appt time: 9:00am Pick-Up Address: [address] [facility] [address] Drop Off Address: [address] [place] [address] SW provided [employer] with both pt's phone numbers - [phone] and [phone] per pt's request. SW shared this information via email per pt's request and encouraged him to reach out with any questions or concerns. BRIGID Casarez, HAT MENDER H CUTTER documented in this encounter Plan of Treatment Not on file documented as of this encounter Visit Diagnoses Not on filedocumented in this encounter Care Teams Java Solutions Architect Relationship Specialty Start Date End Date Kirt Lindsay DO PCP - General Internal Medicine 02/02/21 Josué Del Valle MD PhD Medical Oncologist/Living Advisor Medical Oncology 08/26/19 Tay Charlton MD Consulting Physician Gastroenterology 12/03/21 06/11/23 Halie Khan MD [address] [address] Consulting Physician Pulmonary Disease 12/12/21 3 Ant Starks MD [address] [facility] [address] [place] [address] Consulting Physician Transplant Hepatology 01/12/22 documented as of this encounter
--- OUTSIDE RECORDS SUMMARY | 2024-11-22 10:54 | XMS_ITS | Encounter Summary ---
Author Organization [facility] Healthcare Address [address] [place] [address] Care Team Providers Care Car Sales Consultant Name Role Phone Josué Del Valle MD PhD Unavailable [phone] Kirt Lindsay DO Primary Care Provider [phone] Tay Charlton MD Unavailable [phone] Halie Khan MD Unavailable [phone] StarksAnt goldman MD Unavailable [phone] Encounter Details Date Type Department Care Team (Late st Contact Info) Description 05/10/[address] [facility] Social Work [address] [place] [address] Anna Vaughn LCSW Social History Tobacco Use [...] file Legal Sex Male 10:48 AM COOK PICKLED MEAT Gender Identity Not on file Sexual Orientation Not on file documented as of this encounter Miscellaneous Notes * Telephone Encounter - Anna Vaughn LCSW - 05/10/2022 8:56 AM CDT SW called pt per [place]'s request to discuss ride assistance for upcoming appt on 05/18. SW left VM and will remain available for future assistance. BRIGID Casarez, MARLIN documented in this encounter Plan of Treatment Not on file documented as of this encounter Visit Diagnoses Not on filedocumented in this encounter Care Teams Car Sales Consultant Relationship Specialty Start Date End Date Kirt Lindsay DO PCP - General Internal Medicine 02/02/21 Josué Del Valle MD PhD Medical Oncologist/Construction Estimator Medical Oncology 08/26/19 Tay Charlton MD Consulting Physician Gastroenterology 12/03/21 06/11/23 Halie Khan MD [address] [address] Consulting Physician Pulmonary Disease 12/12/21 3 Ant Starks MD [address] [address] Consulting Physician Transplant Hepatology 01/12/22 documented as of this encounter
--- OUTSIDE RECORDS SUMMARY | 2024-11-22 10:54 | XMS_ITS | Encounter Summary ---
Author Organization [facility] Healthcare Address [address] [place] [address] Care Team Providers Care Software Quality Engineer Name Role Phone Josué Del Valle MD PhD Unavailable Kirt Lindsay DO Primary Care Provider [phone] Tay Charlton MD Unavailable Halie Khan MD Unavailable [phone] StarksAnt goldman MD Unavailable [phone] Encounter Details Date Type Department Care Team (Latest Contact Info) Description 06/29/2022 8:42 AM CDT - 06/29/2022 11:59 PM CDT Hospital Encounter [facility] ([facility]) [address] [place] [phone] Discharge Disposition: Discharge to home or self [...] on file Legal 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 Gender Identity Not on file Sexual [...] 4 (four) hours as needed for wheezing 3 each 3 2 10/22/20 22 atorvastatin (LIPITOR) 40 mg tabletIndications:AML (acute myeloid leukemia) in remission ([facility]),Type 2 diabetes mellitus with hyperglycemia, with long-term current use of insulin ([facility]),Rseuf-kzgbta-qknw disease ([facility]),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[facility]),Pure hypercholesterolemia Take 1 tablet (40 mg total) by mouth daily 30 tablet 6 0 07/30/20 24 blood-glucose meter miscIndications:Type 2 diabetes mellitus with hyperosmolarity 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, with long-term current use of insulin ([facility]) 1 Device 3 (three) times a day [...] capsuleIndications:AML (acute myeloid leukemia) in remission ([facility]),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 30 tablet 0 02/20/20 24 gabapentin (NEURONTIN) 300 mg capsuleIndications:AML (acute myeloid leukemia) in remission ([facility]) TAKE 1 CAPSULE(300 MG) BY MOUTH FOUR TIMES DAILY 120 capsule 1 2 08/06/20 22 insulin glargine (LANTUS, BASAGLAR) 100 unit/mL (3 mL) pen for injectionIndications:Typ e 2 diabetes mellitus with hyperosmolarity 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, with long-term current use of insulin ([facility]) INJECT 15 UNITS NIGHTLY SUB-Q. 1 pen 5 1 02/20/20 24 insulin lispro (HumaLOG, ADMELOG) 100 unit/mL pen for injectionIndications:Typ e 2 diabetes mellitus with hyperosmolarity 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, with long-term current use of insulin ([facility]) INJECT 5-10 UNITS TID WITH MEALS PLUS SLIDING SCALE. TDD OF 35 UNITS. 10 pen 6 1 02/20/20 24 montelukast (SINGULAIR) 10 mg tabletIndications: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),Fkvyy-uepzqb-bcop disease (HCC) Take 1 tablet (10 mg [...] or vomiting 20 tablet 2 02/20/20 24 rivaroxaban (Xarelto) 20 mg tabletIndications: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) Take 1 tablet (20 mg total) by mouth daily 30 tablet 1 2 05/14/20 23 tacrolimus (PROGRAF) 0.5 mg immediate-release capsuleIndications: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) TAKE ONE CAPSULE BY MOUTH EVERY OTHER DAY. 15 capsule 3 2 10/04/20 22 traMADoL (ULTRAM) 50 mg tablet Take 1 tablet (50 mg total) by mouth every 6 (six) hours 10 tablet 2 02/20/20 24 Trelegy Ellipta 100-62.5-25 mcg inhalerIndications:[facility] hospasm Prevention with COPD Inhale 1 puff daily 30 each 1 2 10/05/20 22 voriCONAZOLE (VFEND) 200 mg tabletIndications:stem Cell Transplant [...] filedocumented in this encounter Care Teams Software Quality Engineer Relationship Specialty Start Date End Date Kirt Lindsay DO PCP - General Internal Medicine 02/02/21 Josué Del Valle MD PhD Medical Oncologist/New Car Make Ready Mechanic Medical Oncology 08/26/19 Tay Charlton MD Consulting Physician Gastroenterology 12/03/21 06/11/23 Halie Khan MD [address] [place] [address] Consulting Physician Pulmonary Disease 12/12/21 3 Ant Starks MD [address] [place] [address] Consulting Physician Transplant Hepatology 01/12/22 documented as of this encounter
--- OUTSIDE RECORDS SUMMARY | 2024-11-22 10:54 | XMS_ITS | Encounter Summary ---
Author Organization [facility] Address [address] [place] [address] Phone Care Team Providers Care Tooth Inspector Name Role Phone Josué Del Valle MD PhD Unavailable [phone] Kirt Lindsay DO Primary Care Provider [phone] Tay Charlton MD Unavailable [phone] Halie Khan MD Unavailable [phone] StarksAnt goldman MD Unavailable [phone] Encounter Details Date Type Department Care Team (Late st Contact Info) Description 06/29/2022 Telephone [facility] Bone Marrow Transplant [facility] Advanced Medicine 7th Floor, [place] [address] Anaid Polanco RN Social History [...] on file Legal 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 If not, asked him when he would like to reschedule. Waiting for CB. documented in this encounter Plan of Treatment Not on file documented as of this encounter Visit Diagnoses Not on filedocumented in this encounter Care Teams Tooth Inspector Relationship Specialty Start Date End Date Kirt Lindsay DO PCP - General Internal Medicine 02/02/21 Josué Del Valle MD PhD Medical Oncologist/Supervisor Slitting And Shipping Medical Oncology 08/26/19 Tay Charlton MD Consulting Physician Gastroenterology 12/03/21 06/11/23 Halie Khan MD [address] [address] Consulting Physician Pulmonary Disease 12/12/21 3 Ant Starks MD [address] [address] Consulting Physician Transplant Hepatology 01/12/22 documented as of this encounter
--- OUTSIDE RECORDS SUMMARY | 2024-11-22 10:54 | XMS_ITS | Encounter Summary ---
Author Organization [facility] Address [address] [place] [address] Phone Care Team Providers Care Tinning Equipment Tender Name Role Phone Josué Del Valle MD PhD Unavailable Kirt Lindsay DO Primary Care Provider [phone] Tay Charlton MD Unavailable [phone] Halie Khan MD Unavailable [phone] StarksAnt goldman MD Unavailable [phone] Encounter Details Date Type Department Care Team (Late st Contact Info) Description 10/05/2022 Orders Only [facility] Bone Marrow Transplant [address] [facility] Advanced Medicine 7th Floor, [place] [address] Anaid Polanco RN 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) (Primary Dx) Social History Tobacco [...] on file Legal Sex Male 10:48 AM MOSQUITO SPRAYER Gender Identity Not on file Sexual Orientation Not on file documented as of this encounter Plan of Treatment Not on file documented as of this encounter Results * (ABNORMAL) Lactate dehydrogenase (LD) (10/22/2022 8:45 AM MOSQUITO SPRAYER) Lactate dehydrogenase (LDH) 259(H) 100 - 250 Units/L [facility] Comment:Testing performed by : [facility], [address] [place] [phone] Blood 10/22/2022 8:45 AM MOSQUITO SPRAYER 10/22/2022 8:51 AM MOSQUITO SPRAYER Josué Del Valle MD PhD LAB BLOOD ORDERABLES Fin al Result [facility] One [facility] Department [place] [address] * (ABNORMAL) Comprehensive metabolic panel (10/22/2022 8:45 AM MOSQUITO SPRAYER) Pathologist [facility] Sodium 140 135 - 145 mmol/L [facility] Comment:Testing performed by : [facility], [address] [place] [phone] Potassium, pl 4.7 3.3 - 4.9 mmol/L [facility] Comment:Testing performed by : [facility], [address] [place] [phone] Chloride 98 97 - 110 mmol/L [facility] Comment:Testing performed by : [facility], [address] [place] [phone] CO2 36(H) 22 - 32 mmol/L [facility] Comment:Testing performed by : [facility], [address] [place] [phone] Anion gap 6 2 - 15 mmol/L [facility] Comment:Testing performed by : [facility], [address] [place] [phone] BUN 19 8 - 25 mg/dL [facility] Comment:Testing performed by : [facility], [address] [place] [phone] Creatinine 0.77(L) 0.80 - 1.30 mg/dL [facility] Comment:Testing performed by : [facility], [address] [place] [phone] Glucose 258(H) 70 - 199 mg/dL [facility] Comment: [...] was last revised 2017. Testing performed by: [facility], [address] [place] [phone] Calcium 9.3 8.5 - 10.3 mg/dL [facility] Comment:Testing performed by : [address] [address] Bilirubin, total 0.3 0.1 - 1.2 mg/dL [facility] Comment:Testing performed by : [address] [address] Protein, pl 7.7 6.5 - 8.5 g/dL [facility] Comment:Testing performed by : [facility], [address] [place] [address] Albumin 3.8 3.5 - 5.0 g/dL [facility] Comment:Testing performed by : [address] [address] Alk phos 170(H) 40 - 130 Units/L [facility] Comment:Testing performed by : [address] [address] ALT 62(H) 7 - 55 Units/L [facility] Comment:Testing performed by : [facility], [address] [place] [phone] AST 42 10 - 50 Units/L [facility] Comment:Testing performed by : [facility], [address] [place] [phone] Blood 10/22/2022 8:45 AM MOSQUITO SPRAYER 10/22/2022 8:51 AM MOSQUITO SPRAYER us Josué Del Valle MD PhD LAB BLOOD ORDERABLES Fin al Result [facility] One [facility] Department [place] [address] * (ABNORMAL) CBC with auto differential (10/22/2022 8:45 AM MOSQUITO SPRAYER) WBC 13.4(H) 3.8 - 9.8 K/cumm [facility] Comment:Testing performed by : [facility], [address] [place] [phone] Hgb 13.9 13.8 - 17.2 g/dL [facility] Comment:Testing performed by : [facility], [address] [place] [phone] Hct 41.4 40.7 - 50.3 % [facility] Comment:Testing performed by : [facility], [address] [place] [phone] Plt 362 140 - 440 K/cumm [facility] Comment:Testing performed by : [facility], [address] [place] [phone] MPV 8.3 6.8 - 10.4 fL [facility] Comment:Testing performed by : [facility], [address] [place] [phone] RBC 3.94(L) 4.50 - 5.70 M/cumm [facility] Comment:Testing performed by : [address] [address] MCV 105.1(H) 80.0 - 97.6 fL [facility] Comment:Testing performed by : [facility], [address] [place] [phone] MCH 35.3(H) 26.7 - 33.7 pg [facility] Comment:Testing performed by : [facility], [address] [place] [phone] MCHC 33.6 32.7 - 35.5 g/dL [facility] Comment:Testing performed by : [facility], [address] [place] [phone] RDW CV 14.2 11.8 - 14.6 % [facility] Comment:Testing performed by : [facility], [address] [place] [phone] NRBC abs 0.12(H) 0.00 - 0.01 K/cumm [facility] Comment:Testing performed by : [facility], [address] [place] [phone] Blood 10/22/2022 8:45 AM MOSQUITO SPRAYER 10/22/2022 8:51 AM MOSQUITO SPRAYER Josué Del Valle MD PhD LAB BLOOD ORDERABLES Fin al Result Performing Organization Address [facility] de Phone Number [facility] One [facility] Department [place] [address] * Cytomegalovirus (CMV) DNA PCR, quantitative Blood (10/22/2022 8:45 AM MOSQUITO SPRAYER) CMV DNA Not Detected [facility] Comment: Interpretive Data: The quantifiable range of this assay is 34 IUnits/mL to 10,000,000 IUnits/mL (1.53 log IUnits/mL to 7.0 log IUnits/mL). Testing was performed by the [facility] [employer] CMV Test ([employer] Testing performed at [facility]. Current interpretive data was last revised on 2021. Blood 10/22/2022 8:45 AM MOSQUITO SPRAYER 10/22/2022 9:24 AM MOSQUITO SPRAYER Josué Del Valle MD PhD LAB MICROBIOLOGY - GENER AL ORDERABLES Final Result Performing Organization Address [facility] Co de Phone Number [facility] One [facility] Department [place] [address] documented in this encounter Visit Diagnoses Diagnosis 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)- Primary documented in this encounter Orders Appointment Requests Count Last Ordered Date Fi rst Ordered Date ONCBCN CLINIC APPOINTMENT REQUEST 1 022 ONCBCN LAB APPOINTMENT 1 10/22/2022 documented in this encounter Care Teams Tinning Equipment Tender Relationship Specialty Start Date End Date Kirt Lindsay DO PCP - General Internal Medicine 02/02/21 Josué Del Valle MD PhD Medical Oncologist/Digital Solutions Architect Medical Oncology 08/26/19 Tay Charlton MD Consulting Physician Gastroenterology 12/03/21 06/11/23 Halie Khan MD [address] [facility] [address] [place] [address] Consulting Physician Pulmonary Disease 12/12/21 3 Ant Starks MD [address] [place] [address] Consulting Physician Transplant Hepatology 01/12/22 documented as of this encounter
--- OUTSIDE RECORDS SUMMARY | 2024-11-22 10:54 | XMS_ITS | Encounter Summary ---
Author Organization [facility] Address [address] [place] [address] Phone Care Team Providers Care Ultrasound Technol Name Role Phone Josué Del Valle MD PhD Unavailable [phone] Kirt Lindsay DO Primary Care Provider [phone] Tay Charlton MD Unavailable [phone] Halie Khan MD Unavailable Ant Starks MD Unavailable [phone] Encounter Details Date Type Department Care Team (Late st Contact Info) Description 05/28/2022 Orders Only [facility] Bone Marrow Transplant [address] [facility] Advanced Medicine 7th [address], [place] [address] Silva Mortensen RMA 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) [...] file 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 Gender Identity Not on file Sexual Orientation Not on file documented as of this encounter Ordered Prescriptions Prescription Sig Dispense Quantity Refills Last Filled Start Date End Date voriCONAZOLE (VFEND) 200 mg tabletIndications: stem Cell Transplant Take 1 tablet (200 mg total) by mouth 2 (two) times a day 60 tablet 3 05/28/2022 05/29/2023 documented in this encounter Plan of Treatment Not on file documented as of this encounter Visit Diagnoses Diagnosis 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) documented in this encounter Discontinued Medications Medication Sig Discontinue Reason Start Date End Da te voriCONAZOLE (VFEND) 200 mg tabletIndications:stem Cell Transplant Take 1 tablet (200 mg total) by mouth 2 (two) times a day Reorder 12/13/2021 05/28/2022 documented as of this encounter Care Teams Ultrasound Technol Relationship Specialty Start Date End Date Kirt Lindsay DO PCP - General Internal Medicine 02/02/21 Josué Del Valle MD PhD Medical Oncologist/High Pressure Boiler Operator Medical Oncology 08/26/19 Tay Charlton MD Consulting Physician Gastroenterology 12/03/21 06/11/23 Halie Khan MD [address] [place], [place] [phone] Consulting Physician Pulmonary Disease 12/12/21 3 Ant Starks MD [address] [place], [place] [address] Consulting Physician Transplant Hepatology 01/12/22 documented as of this encounter
--- OUTSIDE RECORDS SUMMARY | 2024-11-22 10:54 | XMS_ITS | Encounter Summary ---
Author Organization [facility] Address [address] [place] [address] Phone Care Team Providers Care Mercerizing Range Controller Name Role Phone Josué Del Valle MD PhD Unavailable Kirt Lindsay DO Primary Care Provider [phone] Tay Charlton MD Unavailable [phone] Halie Khan MD Unavailable [phone] Ant Starks MD Unavailable [phone] Encounter Details Date Type Department Care Team (Late st Contact Info) Description 10/05/2022 Orders Only [facility] Bone Marrow Transplant [address] [facility] Advanced [facility] 7th Floor, [place] [address] Josué Del Valle MD PhD [address] DIV IM BONE MARROW TRANSPLANT, [address] [place] [address] 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); Ievvv-ikwlvt-modc disease (HCC); 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HCC) Social [...] on file 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 Gender Identity Not on file Sexual Orientation Not on file documented as of this encounter Ordered Prescriptions Prescription Sig Dispense Quantity Refills Last Filled Start Date End Date Trelegy Ellipta 100-62.5-25 mcg inhalerIndications :Bronchospasm Prevention with COPD Inhale 1 puff daily 30 each 1 10/05/2022 10/22/2022 documented in this encounter Plan of Treatment Not on file documented as of this encounter Visit Diagnoses Diagnosis 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) Jdaez-kpqifz-ches disease (HCC) 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HCC) documented in this encounter Discontinued Medications Medication Sig Discontinue Reason Start Date End Da te Trelegy Ellipta 100-62.5-25 mcg inhalerIndications:Bronc hospasm Prevention with COPD Inhale 1 puff daily Reorder 02/13/2022 10/05/2022 documented as of this encounter Care Teams Mercerizing Range Controller Relationship Specialty Start Date End Date Kirt Lindsay DO PCP - General Internal Medicine 02/02/21 Josué Del Valle MD PhD Medical Oncologist/Lead Loader Medical Oncology 08/26/19 Tay Charlton MD Consulting Physician Gastroenterology 12/03/21 06/11/23 Halie Khan MD [address] [place] [address] Consulting Physician Pulmonary Disease 12/12/21 3 Ant Starks MD [address] [facility] [address] [facility] [address] [place] [address] Consulting Physician Transplant Hepatology 01/12/22 documented as of this encounter
--- OUTSIDE RECORDS SUMMARY | 2024-11-22 10:55 | XMS_ITS | Encounter Summary ---
Author Organization [facility] Healthcare Address [address] [place] [address] Care Team Providers Care Frog Catcher Name Role Phone Josué Del Valle MD PhD Unavailable Kirt Lindsay DO Primary Care Provider [phone] Tay Charlton MD Unavailable [phone] Halie Khan MD Unavailable [phone] StarksAnt goldman MD Unavailable [phone] Encounter Details Date Type Department Care Team (Latest Contact Info) Description 04/03/2022 10:10 AM CDT - 04/03/2022 11:59 PM CDT Hospital Encounter [facility] [address] [place] [address] 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) [...] on file 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 Gender Identity Not on file Sexual Orientation [...] EVERY 8 HOURS 270 tablet 1 2 06/11/20 22 albuterol HFA (PROVENTIL HFA,VENTOLIN HFA,PROAIR HFA) 90 mcg/actuation inhalerIndications:Chron ic Obstructive Pulmonary Disease Inhale 2 puffs every 4 (four) hours as needed for wheezing 3 each 3 2 10/22/20 22 atorvastatin (LIPITOR) 40 mg tabletIndications: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),Type 2 diabetes mellitus with hyperglycemia, with long-term current use of insulin ([facility]),Emsip-mxduhc-izuz disease ([facility]),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[facility]),Pure hypercholesterolemia Take 1 tablet (40 mg total) by mouth daily 30 tablet 6 0 07/30/20 24 blood-glucose meter miscIndications:Type 2 diabetes mellitus with hyperosmolarity 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, with long-term current use of insulin ([facility]) 1 Device 3 (three) times [...] unit capsuleIndications:AML (acute myeloid leukemia) in remission ([facility]),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[facility]),Vitamin D deficiency TAKE 1 CAPSULE BY MOUTH ONCE A WEEK DIRECTED 12 capsule 3 1 02/20/20 24 furosemide (LASIX) 20 mg tabletIndications:Type 2 diabetes mellitus with hyperosmolarity 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, with long-term current use of insulin ([facility]) Take 1 tablet (20 mg total) by mouth daily As needed. 30 tablet 0 02/20/20 24 gabapentin (NEURONTIN) 300 mg capsule Take 1 capsule (300 mg total) by mouth 3 (three) times a day 90 capsule 1 2 04/09/20 22 insulin glargine (LANTUS, BASAGLAR) 100 unit/mL (3 mL) pen for injectionIndications:Typ e 2 diabetes mellitus with hyperosmolarity 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, with long-term current use of insulin ([facility]) INJECT 15 UNITS NIGHTLY SUB-Q. 1 pen 5 1 02/20/20 24 insulin lispro (HumaLOG, ADMELOG) 100 unit/mL pen for injectionIndications:Typ e 2 diabetes mellitus with hyperosmolarity 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, with long-term current use of insulin ([facility]) INJECT 5-10 UNITS TID WITH MEALS PLUS SLIDING SCALE. TDD OF 35 UNITS. 10 pen 6 1 02/20/20 24 montelukast (SINGULAIR) 10 mg tabletIndications: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),Qfcxo-xzzpoe-crcw disease (HCC) TAKE 1 TABLET BY MOUTH EVERY DAY 90 tablet 2 06/26/20 22 mycophenolate mofetil (CELLCEPT) 500 mg tabletIndications: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),Znlyy-vsrpyu-lkcf disease (HCC) TAKE 2 TABLETS(1000 MG) BY MOUTH TWICE DAILY 180 tablet 3 1 04/11/20 22 ondansetron ODT (ZOFRAN-ODT) 4 mg disintegrating tabletIndications:Preven [...] capsuleIndications: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) Take 1 every other day 15 capsule 3 2 06/06/20 22 traMADoL (ULTRAM) 50 mg tablet Take 1 tablet (50 mg total) by mouth every 6 (six) hours 10 tablet 2 02/20/20 24 Trelegy Ellipta 100-62.5-25 mcg inhalerIndications:[facility] hospasm Prevention with COPD Inhale 1 puff daily 30 each 1 2 10/05/20 22 voriCONAZOLE (VFEND) 200 mg tabletIndications:stem Cell Transplant Take 1 tablet (200 mg total) by mouth 2 (two) times a day 60 tablet 3 2 05/28/20 22 documented as of this encounter Discharge Disposition Disposition Code Departure Means Destination Discharge to home or self care documented in this encounter Plan of Treatment Not on file documented as of this encounter Procedures Procedure Name Priority Date/Time Associated Diagnosis Comments EGFR Routine 04/03/2022 10:39 AM CDT 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) DIFFERENTIAL AUTO Routine 04/03/2022 10: 39 AM CDT 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) CBC WITH AUTO DIFFERENTIAL Routine 04/03/2022 10:39 AM CDT 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) LACTATE DEHYDROGENASE Routine 04/03/2022 10:39 AM CDT 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) COMPREHENSIVE METABOLIC PANEL Routine 04/03/2022 10:39 AM CDT 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) documented in this encounter Results * eGFR (04/03/2022 10:39 AM CDT) [facility] eGFR >90 90 - 130 mL/min/1. 73 m2 [facility] Comment: Interpretive Data Reference Interval Normal ?>/= [...] was last reviewed 2021. Testing performed by: [facility], [address] [place] [phone] Blood 04/03/2022 10:3 9 AM CDT 04/03/2022 10:40 AM CDT us Josué Del Valle MD PhD LAB BLOOD ORDERABLES Fin al Result [facility] Department [place] [address] * Differential, auto (04/03/2022 10:39 AM CDT) Neutrophil abs 5.3 1.8 - 6.6 K/cumm [facility] Comment:Testing performed by : [facility], [address] [place] [phone] Lymphocyte abs 3.3 1.2 - 3.3 K/cumm [facility] Comment:Testing performed by : [facility], [address] [place] [phone] Monocyte abs 1.0 0.2 - 1.2 K/cumm [facility] Comment:Testing performed by : [facility], [address] [place] [phone] Eosinophil abs 0.4 0.0 - 0.5 K/cumm [facility] Comment:Testing performed by : [facility], [address] [place] [phone] Basophil abs 0.1 0.0 - 0.2 K/cumm [facility] Comment:Testing performed by : [facility], [address] [place] [phone] Neutrophil pct 51.9 % [facility] Comment: Interpretive Data Percent cell count reference ranges are not reported, since discordance with absolute values may lead to misinterpretation of CBC data. Current Interpretive Data was last revised on 2018. Testing performed by: [facility], [address] [place] [phone] Lymphocyte pct 32.4 % [facility] Comment: Interpretive Data Percent cell count reference ranges are not reported, since discordance with absolute values may lead to misinterpretation of CBC data. Current Interpretive Data was last revised on 2018. Testing performed by: [facility], [address] [place] [phone] Monocyte pct 10.1 % [facility] Comment:Testing performed by : [facility], [address] [place] [phone] Eosinophil pct 4.4 % [facility] Comment:Testing performed by : [facility], [address] [place] [phone] Basophil pct 1.2 % [facility] Comment:Testing performed by : [facility], [address] [place] [phone] Blood 04/03/2022 10:3 9 AM CDT 04/03/2022 10:40 AM CDT us Josué Del Valle MD PhD LAB BLOOD ORDERABLES Fin al Result [facility] Department [place] [address] * (ABNORMAL) CBC with auto differential (04/03/2022 10:39 AM CDT) WBC 10.1(H) 3.8 - 9.8 K/cumm [facility] Comment:Testing performed by : [facility], [address] [place] [phone] Hgb 13.2(L) 13.8 - 17.2 g/dL [facility] Comment:Testing performed by : [facility], [address] [place] [phone] Hct 38.6(L) 40.7 - 50.3 % [facility] Comment:Testing performed by : [facility], [address] [place] [phone] Plt 253 140 - 440 K/cumm [facility] Comment:Testing performed by : [facility], [address] [place] [phone] MPV 8.0 6.8 - 10.4 fL [facility] Comment:Testing performed by : [address] [phone] RBC 3.61(L) 4.50 - 5.70 M/cumm [facility] Comment:Testing performed by : [address] [phone] MCV 106.9(H) 80.0 - 97.6 fL [facility] Comment:Testing performed by : [facility], [address] [place] [phone] MCH 36.5(H) 26.7 - 33.7 pg [facility] Comment:Testing performed by : [facility], [address] [place] [phone] MCHC 34.2 32.7 - 35.5 g/dL [facility] Comment:Testing performed by : [facility], [address] [place] [phone] RDW CV 14.1 11.8 - 14.6 % [facility] Comment:Testing performed by : [facility], [address] [place] [phone] NRBC abs 0.00 0.00 - 0.01 K/cumm [facility] Comment:Testing performed by : [facility], [address] [place] [phone] Blood 04/03/2022 10:3 9 AM CDT 04/03/2022 10:40 AM CDT us Josué Del Valle MD PhD LAB BLOOD ORDERABLES Fin al Result [facility] Department [place] [address] * (ABNORMAL) Comprehensive metabolic panel (04/03/2022 10:39 AM CDT) Sodium 135 135 - 145 mmol/L [facility] Comment:Testing performed by : [facility], [address] [place] [phone] Potassium, pl 4.4 3.3 - 4.9 mmol/L [facility] Comment:Testing performed by : [facility], [address] [place] [phone] Chloride 98 97 - 110 mmol/L [facility] Comment:Testing performed by : [facility], [address] [place] [phone] CO2 30 22 - 32 mmol/L [facility] Comment:Testing performed by : [facility], [address] [place] [phone] Anion gap 7 2 - 15 mmol/L [facility] Comment:Testing performed by : [facility], [address] [place] [phone] BUN 16 8 - 25 mg/dL [facility] Comment:Testing performed by : [facility], [address] [place] [phone] Creatinine 0.86 0.80 - 1.30 mg/dL [facility] Comment:Testing performed by : [facility], [address] [place] [phone] Glucose 105 70 - 199 mg/dL [facility] Comment: [...] performed by: [facility], [address] [place] [phone] Calcium 9.8 8.5 - 10.3 mg/dL [facility] Comment:Testing performed by : [facility], [address] [place] [phone] Bilirubin, total 0.3 0.1 - 1.2 mg/dL [facility] Comment:Testing performed by : [facility], [address] [place] [phone] Protein, pl 7.3 6.5 - 8.5 g/dL [facility] Comment:Testing performed by : [facility], [address] [place] [address] Albumin 4.2 3.5 - 5.0 g/dL [facility] Comment:Testing performed by : [facility], [address] [place] [phone] Alk phos 174(H) 40 - 130 Units/L [facility] Comment:Testing performed by : [facility], [address] [place] [phone] ALT 24 7 - 55 Units/L [facility] Comment:Testing performed by : [facility], [address] [place] [phone] AST 29 10 - 50 Units/L [facility] Comment:Testing performed by : [facility], [address] [place] [phone] Blood 04/03/2022 10:3 9 AM CDT 04/03/2022 10:40 AM CDT Josué Del Valle MD PhD LAB BLOOD ORDERABLES Fin al Result Performing Organization Address City/[facility] Co de Phone Number [facility] Department [place] [address] * Lactate dehydrogenase (LD) (04/03/2022 10:39 AM CDT) Lactate dehydrogenase (LDH) 172 100 - 250 Units/L [facility] Comment:Testing performed by : [facility], [address] [place] [phone] Blood 04/03/2022 10:3 9 AM CDT 04/03/2022 10:40 AM CDT Josué Del Valle MD PhD LAB BLOOD ORDERABLES Fin al Result Performing Organization Address City/[facility] Co de Phone Number [facility] Department [place] [address] documented in this encounter Visit Diagnoses Diagnosis 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) documented in this encounter Care Teams Frog Catcher Relationship Specialty Start Date End Date Kirt Lindsay DO PCP - General Internal Medicine 02/02/21 Josué Del Valle MD PhD Medical Oncologist/Data Operations Manager Medical Oncology 08/26/19 Tay Charlton MD Consulting Physician Gastroenterology 12/03/21 06/11/23 Halie Khan MD [address] [facility] [address] [place] [address] Consulting Physician Pulmonary Disease 12/12/21 3 Ant Starks MD [address] [facility] [address] [place] [address] Consulting Physician Transplant Hepatology 01/12/22 documented as of this encounter
--- OUTSIDE RECORDS SUMMARY | 2024-11-22 10:55 | XMS_ITS | Encounter Summary ---
Author Organization [facility] Address [address] [place] [address] Phone Care Team Providers Care Piano Mechanic Name Role Phone Josué Del Valle MD PhD Unavailable [phone] Kirt Lindsay DO Primary Care Provider [phone] Tay Charlton MD Unavailable [phone] Halie Khan MD Unavailable [phone] StarksAnt goldman MD Unavailable [phone] Encounter Details Date Type Department Care Team (Late st Contact Info) Description 02/28/2022 Orders Only [facility] Oncology [address] [facility] 7th [place] [address] [place] [address] Snow Rogers RPh Social History Tobacco Use Types Packs/Day [...] on file 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 Gender Identity Not on file Sexual Orientation Not on file documented as of this encounter Plan of Treatment Not on file documented as of this encounter Visit Diagnoses Not on filedocumented in this encounter Care Teams Piano Mechanic Relationship Specialty Start Date End Date Kirt Lindsay DO PCP - General Internal Medicine 02/02/21 Josué Del Valle MD PhD Medical Oncologist/Telegraph Printer Mechanic Medical Oncology 08/26/19 Tay Charlton MD Consulting Physician Gastroenterology 12/03/21 06/11/23 Halie Khan MD [address] [address] Consulting Physician Pulmonary Disease 12/12/21 3 Ant Starks MD [address] [address] Consulting Physician Transplant Hepatology 01/12/22 documented as of this encounter
--- OUTSIDE RECORDS SUMMARY | 2024-11-22 10:55 | XMS_ITS | Encounter Summary ---
Author Organization [facility] Address [address] [place] [address] Phone Care Team Providers Care Sailor Name Role Phone Josué Del Valle MD PhD Unavailable [phone] Kirt Lindsay DO Primary Care Provider [phone] Tay Charlton MD Unavailable [phone] Halie Khan MD Unavailable [phone] StarksAnt goldman MD Unavailable [phone] Reason for Visit * Reason Onset Date Comments Appointment/Schedules 04/06/2022 Encounter Details Date Type Department Care Team (Late st Contact Info) Description 04/06/2022 Telephone 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 No answer, left VM and provided callback number. Requested pt to follow up. documented in this encounter Plan of Treatment Not on file documented as of this encounter Visit Diagnoses Not on filedocumented in this encounter Care Teams Sailor Relationship Specialty Start Date End Date Kirt Lindsay DO PCP - General Internal Medicine 02/02/21 Josué Del Valle MD PhD Medical Oncologist/Pretzel Packer Medical Oncology 08/26/19 Tay Charlton MD Consulting Physician Gastroenterology 12/03/21 06/11/23 Halie Khan MD [address] [address] Consulting Physician Pulmonary Disease 12/12/21 3 Ant Starks MD [address] [address] Consulting Physician Transplant Hepatology 01/12/22 documented as of this encounter
--- OUTSIDE RECORDS SUMMARY | 2024-11-22 10:55 | XMS_ITS | Encounter Summary ---
Author Organization [facility] Address [address] [place] [address] Phone Care Team Providers Care Drum Stenciler Name Role Phone Josué Del Valle MD PhD Unavailable [phone] Kirt Lindsay DO Primary Care Provider [phone] Tay Charlton MD Unavailable [phone] Halie Khan MD Unavailable Ant Starks MD Unavailable [phone] Reason for Visit * Oncology (Routine) - Closed Specialty Diagnoses / Procedures Referred By Contac t Referred To Contact Lab Diagnoses Type 2 diabetes mellitus with hyperosmolarity 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, with long-term current use of insulin (HCC) Osteopenia, unspecified location Procedures ONCBCN ARM DRAW APPT [facility] Scheduling [address] [place] [address] Phone: tel: [facility] Oncology [address] [facility] 7th [place] [address] [place] [address] Phone: tel: Referral ID Status Reason Start Date Expiration Date V isits Requested Visits Authorized [id number] Closed Specialty Services Required 11/23/2021 11/17/2023 99 99 Encounter Details Date Type Department Care Team (Late st Contact Info) Description 04/03/2022 9:30 AM CDT Lab [facility] Oncology [address] [facility] 7th [place] [address] [place] [address] 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) [...] on file 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 Gender Identity Not on file Sexual Orientation Not on file documented as of this encounter Plan of Treatment Not on file documented as of this encounter Visit Diagnoses Diagnosis 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) documented in this encounter Orders Appointment Requests Count Last Ordered Date Fi rst Ordered Date ONCBCN LAB APPOINTMENT 1 04/03/2022 documented in this encounter Care Teams Drum Stenciler Relationship Specialty Start Date End Date Kirt Lindsay DO PCP - General Internal Medicine 02/02/21 Josué Del Valle MD PhD Medical Oncologist/Technician Test Systems Medical Oncology 08/26/19 Tay Charlton MD Consulting Physician Gastroenterology 12/03/21 06/11/23 Halie Khan MD [address] [address] Consulting Physician Pulmonary Disease 12/12/21 3 Ant Starks MD [address] [facility] [address] [place] [address] Consulting Physician Transplant Hepatology 01/12/22 documented as of this encounter
--- OUTSIDE RECORDS SUMMARY | 2024-11-22 10:55 | XMS_ITS | Encounter Summary ---
Author Organization [facility] Address [address] [place] [address] Phone Care Team Providers Care Prospecting Driller Name Role Phone Josué Del Valle MD PhD Unavailable [phone] Kirt Lindsay DO Primary Care Provider [phone] Tay Charlton MD Unavailable [phone] Halie Khan MD Unavailable [phone] StarksAnt goldman MD Unavailable [phone] Reason for Visit * Reason Onset Date Comments Follow-up 02/27/2022 Encounter Details Date Type Department Care Team (Late st Contact Info) Description 02/27/2022 Telephone [facility] Oncology [address] [facility] 7th [place] [address] [place] [address] Bonnie Lara, BECKI Follow-up Social History Tobacco Use Types [...] file 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 Montejo recommended for him. Pt has no showed for multiple visits and has not returned several calls regarding scheduling followup. Scheduling request placed for Reclast tomorrow @ [facility] and message sent to treatment scheduling about placing him on the schedule. Lab orders added on to lab appt tomorrow. Returned call to pt, no answer. Left message advising that Reclast will be scheduled following apptwith BMT. Requested pt return call to schedule f/u with Dr. Montejo, telemedicine offered. Callback number provided. documented in this encounter Plan of Treatment Not on file documented as of this encounter Visit Diagnoses Diagnosis Other osteoporosis without current pathological fracture- Primary documented in this encounter Care Teams Prospecting Driller Relationship Specialty Start Date End Date Kirt Lindsay DO PCP - General Internal Medicine 02/02/21 Josué Del Valle MD PhD Medical Oncologist/Director Of [employer] Medical Oncology 08/26/19 Tay Charlton MD Consulting Physician Gastroenterology 12/03/21 06/11/23 Halie Khan MD [address] [place] [address] Consulting Physician Pulmonary Disease 12/12/21 3 Ant Starks MD [address] [facility] [address] [facility] [address] [place] [address] Consulting Physician Transplant Hepatology 01/12/22 documented as of this encounter
--- OUTSIDE RECORDS SUMMARY | 2024-11-22 10:55 | XMS_ITS | Encounter Summary ---
Author Organization [facility] Address [address] [place] [address] Phone Care Team Providers Care Assistant Reading Teacher Name Role Phone Josué Del Valle MD PhD Unavailable [phone] Kirt Lindsay DO Primary Care Provider [phone] Tay Charlton MD Unavailable [phone] Halie Khan MD Unavailable [phone] FleetwoodAnt MD Unavailable [phone] Reason for Referral * MRI/CAT/PET Scan (Routine) - Closed Specialty Diagnoses / Procedures Referred By Contac t Referred To Contact Radiology Diagnoses 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) Procedures CT chest with contrast Josué Del Valle MD PhD Phone: tel: fax: [address] [address] Referral ID Status Reason Start Date Expiration Date Visits Re quested Visits Authorized [id number] Closed 02/28/2022 03/30/2023 1 1 Encounter Details Date Type Department Care Team (Late st Contact Info) Description 02/28/2022 9:20 AM CDT Office Visit [facility] Bone Marrow Transplant [address] [facility] 7th Floor, [place] [address] Narcisa Kilgore NP [address] DIV IM BONE MARROW TRANSPLANT, [address] [place] [address] 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) [...] on file Legal Sex Male 10:48 AM [employer] Gender Identity Not on file Sexual Orientation Not on file documented as of this encounter Last Filed Vital Signs Vital Sign Reading Time Taken Comments Blood Pressure 134/63 02/28/2022 9:15 AM CDT Pulse 83 02/28/2022 9:15 AM CDT Temperature 36.6 ??C (97.9 ??F) 02/28/2022 9:15 AM CD T Respiratory Rate 18 02/28/2022 9:15 AM CDT Oxygen Saturation 93% 02/28/2022 9:15 AM CDT Inhaled Oxygen Concentration - - Weight 65.8 kg (145 lb) 02/28/2022 9:15 AM CDT Height - - Body Mass Index 20.81 02/12/2022 6:15 AM CDT documented in this encounter Progress Notes * Narcisa Kilgore NP - 02/28/2022 9:20 AM CDT [facility] DEPARTMENT OF MEDICINE - SECTION OF BMT & LEUKEMIA [address] [facility] [id number]- PHONE: FAX: PATIENT NAME: BRI JONES : 1965 ROSY: 02/28/2022 Hospital discharge: 02/11/22-02/14/2022 DIAGNOSIS: 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 TREATMENT HISTORY: 1. Induction with 7+3 and HiDAC consolidation x3. 2. Decitabine maintenance on the [facility] [address] protocol. 3. Relapsed disease, status post [facility]. 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 TRANSPLANT HISTORY: Status post an allogeneic transplant with busulfan and Cytoxan on the [facility] allogeneic study with hissister, 08/27 match; with day 0 on 11/09/2009. INTERVAL HISTORY: Patient overall doing well. PHYSICAL EXAM: Vitals BP 134/63 (BP Location: Right arm) Pulse 83 Temp 36.6 ??C (97.9 ??F) (Transdermal) Resp 18 Wt 65.8 kg (145 lb) SpO2 93% BMI 20.81 kg/m?? General: He is alert and oriented x3, in no acute distress. HEENT: Pupils are equal, round, and reactive to light and accommodation. Sclerae anicteric. Neck: Supple without lymphadenopathy. Cardiac: S1 and S2. Regular rate without murmur or gallop. Lungs: Clear to auscultation bilaterally. Abdomen: Soft, nontender, and nondistended with positive bowel sounds. No hepatosplenomegaly. Extremities: Lower extremities without edema. Palpable pulses. Skin: Unremarkable. Neurologic: Grossly intact. No neurological deficit. LABORATORY DATA: Hematology Lab History Some values may be hidden. Unless noted otherwise, only the newest values recorded on each date aredisplayed. Labs - Hematology Latest Ref Range 02/12/22 02/13/22 02/14/22 02/28/22 WBC 3.8 - 9.8 K/cumm 12.4 (A) 16.4 (A) 20.0 (A) 9.0 Total Hb, POC 13.8 - 17.2 g/dL 13.5 11.5 (A) 10.4 (A) 11.6 (A) Hct 40.7 - 50.3 % 40.1 32.4 (A) 29.5 (A) 33.9 (A) Plt 140 - 440 K/cumm 333 331 314 309 Neutrophil abs 1.8 - 6.6 K/cumm 11.9 (A) 13.5 (A) 17.9 (A) 3.3 Lymphocytes, abs 1.2 - 3.3 K/cumm 0.5 (A) 2.2 1.6 4.1 (A) (A) Abnormal value Comments are available for some flowsheets but are not being displayed. Chemistry Lab Results Component Value Date SODIUM 138 02/28/2022 POTASSIUM 5.7 (H) 02/28/2022 CHLORIDE 101 02/28/2022 CO2 30 02/28/2022 ANIONGAP 7 02/28/2022 BUNSER 15 02/28/2022 CREATININE 0.66 (L) 02/28/2022 GLUCOSE 163 02/28/2022 URICACID 5.2 02/13/2022 CALCIUM 9.7 02/28/2022 BILITOT 0.4 02/28/2022 PROTEIN 7.2 12/14/2016 ALBUMIN 4.0 02/28/2022 GFRNAA >90 02/28/2022 ALKPHOS 221 (H) 02/28/2022 AST 39 02/28/2022 ALT 48 02/28/2022 PHOS 3.7 02/14/2022 MAGNESIUM 1.7 02/14/[address] 02/12/2022 EXAMINATION: CT CHEST PE (CTA) W CONTRAST ?? HISTORY: 56-year-old male with chest pain and hemoptysis. ?? TECHNIQUE: Computed tomographic images were acquired using a chest angiographic protocol optimized for pulmonary embolism. Contrast enhanced transaxial images were obtained following the intravenous administration of 95 ml of nonionic contrast. Multiplanar reformatted images and three-dimensional images were obtained on the 3-D workstation and sent to the PACS archival system. ?? COMPARISON: CT of the chest dated 09/07/2021 ?? FINDINGS: No acute pulmonary embolism. Decreased areas of tree-in-bud nodularity within the bilateral lungs. New focus of groundglass opacification within the right upper lobe. Emphysematous changes are seen. No effusion or pneumothorax. New 0.6 cm spiculated nodule within the right middle lobe (series 7, image 73). Stable 0.5 cm right lower lobe pulmonary nodule (series 7, image 100). ?? The heart size is normal without pericardial effusion. The thoracic aorta is normal in course and caliber. ?? The thyroid is normal. Stable prominent ot enlarged supraclavicular lymph nodes. There is no axillary, mediastinal or hilar lymphadenopathy. ?? Cholelithiasis without cholecystitis. The stomach is distended and filled with debris. Otherwise, the visualized upper abdomen is normal. ?? 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 ?? The bones show no suspicious osseous lesions. ?? CT imaging evidence of right heart strain: No ?? IMPRESSION: ?? 1. No acute pulmonary embolism. ?? 2. New indeterminate subcentimeter right middle lobe nodule could be neoplastic, with stable prominent right supraclavicular lymph nodes. Recommend short-term interval follow-up. ?? 3. Ground glass opacification in the right upper lobe and tree-in-bud nodularity is noted in the bilateral lungs which are favored to be infectious or inflammatory in etiology. ?? Dictated by: Zohaib López M.D. MEDICATIONS: Current Outpatient Medications: ??? acetaminophen (TYLENOL) 500 mg tablet, Take 2 tablets (1,000 mg total) by mouth every 6 (six) hours as needed for pain, Disp: 30 tablet, Rfl: 0 ??? acyclovir (ZOVIRAX) 400 mg tablet, TAKE 1 TABLET(400 MG) BY MOUTH EVERY 8 HOURS (Patient takingdifferently: Take 400 mg by mouth 3 (three) times a day), Disp: 270 tablet, Rfl: 1 ??? albuterol HFA (PROVENTIL HFA,VENTOLIN HFA,PROAIR HFA) 90 mcg/actuation inhaler, Inhale 2 puffs every 4 (four) hours as needed for wheezing, Disp: 3 each, Rfl: 3 ??? atorvastatin (LIPITOR) 40 mg tablet, Take 1 tablet (40 mg total) by mouth daily, Disp: 30 tablet, Rfl: 6 ??? blood-glucose meter misc, 1 Device 3 (three) times a day (Patient not taking: Reported on 12/12/2021), Disp: 1 each, Rfl: 0 ??? calcium carbonate (TUMS) 500 mg (215 mg elemental) tablet,chewable, Take 10,000 mg by mouth 2 (two) times a day as needed, Disp: , Rfl: ??? cholecalciferol (VITAMIN D-3) 2000 unit capsule, Take 2,000 Units by mouth every morning, Disp:, Rfl: ??? docusate sodium (COLACE) 100 mg capsule, Take 1 capsule (100 mg total) by mouth 2 (two) times aday with a glass of water, Disp: 20 capsule, Rfl: 0 ??? ergocalciferol (VITAMIN D) 50,000 unit capsule, TAKE 1 CAPSULE BY MOUTH ONCE A WEEK DIRECTED(Patient taking differently: Take 50,000 Units by mouth once a week TAKE 1 CAPSULE BY MOUTH ONCE A WEEK DIRECTED, saturdays), Disp: 12 capsule, Rfl: 3 ??? furosemide (LASIX) 20 mg tablet, Take 1 tablet (20 mg total) by mouth daily As needed. (Patienttaking differently: Take 20 mg by mouth daily as needed), Disp: 30 tablet, Rfl: 0 ??? gabapentin (NEURONTIN) 300 mg capsule, Take 1 capsule (300 mg total) by mouth 3 (three) times aday, Disp: 90 capsule, Rfl: 1 ??? insulin glargine (LANTUS, BASAGLAR) 100 unit/mL (3 mL) pen for injection, INJECT 15 UNITS NIGHTLY SUB-Q. (Patient taking differently: Inject 12 Units under the skin nightly INJECT 15 UNITS NIGHTLY SUB-Q.), Disp: 1 pen, Rfl: 5 ??? insulin lispro (HumaLOG, ADMELOG) 100 unit/mL pen for injection, INJECT 5-10 UNITS TID WITH MEALS PLUS SLIDING SCALE. TDD OF 35 UNITS. (Patient taking differently: Inject under the skin 3 (three)times a day before meals INJECT 5-10 UNITS TID WITH MEALS PLUS SLIDING SCALE. TDD OF 35 UNITS.), Disp: 10 pen, Rfl: 6 ??? montelukast (SINGULAIR) 10 mg tablet, TAKE 1 TABLET BY MOUTH EVERY DAY (Patient taking differently: Take 10 mg by mouth every morning TAKE 1 TABLET BY MOUTH EVERY DAY), Disp: 90 tablet, Rfl: 0 ??? mycophenolate mofetil (CELLCEPT) 500 mg tablet, TAKE 2 TABLETS(1000 MG) BY MOUTH TWICE DAILY (Patient taking differently: Take 1,000 mg by mouth 2 (two) times a day), Disp: 180 tablet, Rfl: 3 ??? omega-3 fatty acids (LOVAZA) 1 gram capsule, Take 1 g by mouth 2 (two) times a day , Disp: , Rfl: ??? ondansetron ODT (ZOFRAN-ODT) 4 mg disintegrating tablet, Take 1 tablet (4 mg total) by mouth every 8 (eight) hours as needed for nausea or vomiting, Disp: 20 tablet, Rfl: 0 ??? oxygen, Administer 2 L/min into each nostril nightly Nightly and PRN, Disp: , Rfl: ??? rivaroxaban (Xarelto) 20 mg tablet, Take 1 tablet (20 mg total) by mouth daily, Disp: 30 tablet, Rfl: 1 ??? tacrolimus (PROGRAF) 0.5 mg immediate-release capsule, Take 1 every other day (Patient taking differently: Take 0.5 mg by mouth every other day Take 1 every other day), Disp: 15 capsule, Rfl: 3 ??? traMADoL (ULTRAM) 50 mg tablet, Take 1 tablet (50 mg total) by mouth every 6 (six) hours, Disp:10 tablet, Rfl: 0 ??? Trelegy Ellipta 100-62.5-25 mcg inhaler, Inhale 1 puff daily, Disp: 30 each, Rfl: 1 ??? voriCONAZOLE (VFEND) 200 mg tablet, Take 1 tablet (200 mg total) by mouth 2 (two) times a day, Disp: 60 tablet, Rfl: 3 IMPRESSION/PLAN: 1. Patient with a history of acute myeloid leukemia post an allo transplant + 4494 days ago. 2. Chronic anooi-smvvqr-cgcn disease. He Is off Jakafi stopped on his own. He completed cycle 1 and2. January 24 he didn't continuous pickling line pickler drug and MMF 1 g b.i.d., tacro 0.5 every other day, and he is weanedof Prednisone. 3. Infectious disease prophylaxis. He is on acyclovir 400 t.i.d. voriconazole 200 b.i.d 4. History of deep venous thrombosis and pulmonary embolus. DVT lower ext 2012, DVT IJ 2017, PE 02/02/2013. He is on Xarelto 20 mg a day. 5. Chronic obstructive pulmonary disease. He has Ventolin inhaler, Trelegy inhaler, albuterol inhaler, and Singulair 10 a day. 6. Diabetes. He is on Lantus/humolog. He has hem aic pending. F/u with endocrine. He is out of Lipitor. Lipid panel pending. 7. Neuropathy. He is on gabapentin 300 four times a day. 8. Congestive heart failure. He has Lasix 20 mg prn. 9. Hyperkalemia ? Source. check whole blood potassium today. If over 5.0 check ekg. 10. Vitamin D deficiency/bone health- check vitamin d today. Continue oral for now. He is getting reclast today per endocrine. 11. COPD/PNA- last admission. Symptoms improved. Repeat CT in 1 month to evaluate nodule. ( he can't stay today). ROV 3 months Narcisa Kilgore, RN, BCFNP Nurse Practitioner In collaboration with Josué Del Valle M.D. Cosigned by Josué Del Valle MD PhD at 03/01/2022 10:16 AM CDT * Ave Montejo MD - 02/28/2022 9:20 AM CDT MAYA Bennett, he missed multiple appointments with me but came for his Reclast today documented in this encounter Nursing Notes * Jared Rodriguez RN - 02/28/2022 9:20 AM CDT TODAY: +4494 TCV 02/11-02/14 Admitted for SOB and increase O2 demands from 1L to 5L at home. Had excess cough + brownish sputum.CT = infectious vs infmallatory RUL GGO and tree in bud nodularity. Ceftriazone + Azith + Levoflox + Pred. NEW Indeterminatte subcentimeter right middle lobe nodule. --- CT in march -- whole blood K+ today because high K+ Asked Anna to help with ride Follow-up: Repeat CT Pended based on last CT - 1 month with labs 3 month with jfd documented in this encounter Plan of Treatment Not on file documented as of this encounter Results * Lactate dehydrogenase (LD) (04/03/2022 10:39 AM CDT) Lactate dehydrogenase (LDH) 172 100 - 250 Units/L [facility] Comment:Testing performed by : [facility], [address] [place] [phone] Blood 04/03/2022 10:3 9 AM CDT 04/03/2022 10:40 AM CDT Josué Del Valle MD PhD LAB BLOOD ORDERABLES Fin al Result [facility] Department [place] [address] * (ABNORMAL) Comprehensive metabolic panel (04/03/2022 10:39 AM CDT) Pathologist [facility] Sodium 135 135 - 145 mmol/L [facility] Comment:Testing performed by : [facility], [address] [place] [phone] Potassium, pl 4.4 3.3 - 4.9 mmol/L [facility] Comment:Testing performed by : [facility], [address] [place] [phone] Chloride 98 97 - 110 mmol/L [facility] Comment:Testing performed by : [facility], [address] [place] [phone] CO2 30 22 - 32 mmol/L [facility] Comment:Testing performed by : [facility], [address] [place] [phone] Anion gap 7 2 - 15 mmol/L [facility] Comment:Testing performed by : [facility], [address] [place] [phone] BUN 16 8 - 25 mg/dL [facility] Comment:Testing performed by : [facility] [address] [address] Creatinine 0.86 0.80 - 1.30 mg/dL [facility] Comment:Testing performed by : [facility], [address] [place] [phone] Glucose 105 70 - 199 mg/dL CERNER [...] was last revised 2017. Testing performed by: [place] [phone] Calcium 9.8 8.5 - 10.3 mg/dL [facility] Comment:Testing performed by : [address] [address] Bilirubin, total 0.3 0.1 - 1.2 mg/dL [facility] Comment:Testing performed by : [address] [address] Protein, pl 7.3 6.5 - 8.5 g/dL [facility] Comment:Testing performed by : [address] [phone] Albumin 4.2 3.5 - 5.0 g/dL [facility] Comment:Testing performed by : [address] [address] Alk phos 174(H) 40 - 130 Units/L [facility] Comment:Testing performed by : [place] [phone] ALT 24 7 - 55 Units/L [facility] Comment:Testing performed by : [address] AST 29 10 - 50 Units/L [facility] Comment:Testing performed by : [facility], [address] [place] [phone] Blood 04/03/2022 10:3 9 AM CDT 04/03/2022 10:40 AM CDT us Josué Del Valle MD PhD LAB BLOOD ORDERABLES Fin al Result [facility] [place] [address] * (ABNORMAL) CBC with auto differential (04/03/2022 10:39 AM CDT) WBC 10.1(H) 3.8 - 9.8 K/cumm [facility] Comment:Testing performed by : [facility], [address] [place] [phone] Hgb 13.2(L) 13.8 - 17.2 g/dL [facility] Comment:Testing performed by : [facility], [address] [place] [phone] Hct 38.6(L) 40.7 - 50.3 % [facility] Comment:Testing performed by : [facility], [address] [place] [phone] Plt 253 140 - 440 K/cumm [facility] Comment:Testing performed by : [address] [address] MPV 8.0 6.8 - 10.4 fL [facility] Comment:Testing performed by : [facility], [address] [place] [phone] RBC 3.61(L) 4.50 - 5.70 M/cumm [facility] Comment:Testing performed by : [address] [phone] MCV 106.9(H) 80.0 - 97.6 fL [facility] Comment:Testing performed by : [address] [address] MCH 36.5(H) 26.7 - 33.7 pg [facility] Comment:Testing performed by : [facility], [address] [facility] [address] MCHC 34.2 32.7 - 35.5 g/dL [facility] Comment:Testing performed by : [facility], [address] [place] [phone] RDW CV 14.1 11.8 - 14.6 % [facility] Comment:Testing performed by : [facility], [address] [place] [phone] NRBC abs 0.00 0.00 - 0.01 K/cumm [facility] Comment:Testing performed by : [facility], [address] [place] [phone] Blood 04/03/2022 10:3 9 AM CDT 04/03/2022 10:40 AM CDT Josué Del Valle MD PhD LAB BLOOD ORDERABLES Fin al Result Performing Organization Address City/State/[facility] Co de Phone Number [facility] [place] [address] * CT chest with contrast (04/03/2022 10:07 AM CDT) Anatomical Region Laterality Modality Body N/A Computed Tomogra phy 04/03/2022 10:4 6 AM CDT Impressions 04/03/2022 10:51 AM CDT 1. Unchanged size of 2 inferior right upper lobe spiculated pulmonary nodules which are indeterminate but could represent focal scarring. 2. Interval resolution of previously seen right upper lobe groundglass opacities adjacent to the more lateral of the nodules which likely represents a resolved infectious process. Dictated by: Kaushik Toussaint M.D. The radiology attending physician has personally reviewed this study, and had reviewed and/or edited this written report and agrees with it. Electronically signed by: Willam Renner M.D., MPH Narrative 04/03/2022 10:51 AM CDT EXAMINATION: ??Computed tomography of the chest with intravenous contrast HISTORY: 56-year-old male with AML. Follow-up pulmonary nodule. TECHNIQUE: ??Transaxial computed tomographic images of the chest ??were obtained with intravenous contrast according to the standard protocol after the uneventful administration of 100 mL Opti-Ray 350 intravenous contrast. COMPARISON: 01/23/2022 FINDINGS: ?? Thyroid gland is normal. No suspicious lymphadenopathy in the chest. Heart size is normal. There is no pericardial effusion. Thoracic aorta is normal in course and caliber. No large central pulmonary embolism. There is new partial collapse of the right middle lobe. No obstructing mass is noted. Unchanged spiculated nodule within the inferior right upper lobe lobe best seen at table position 120.2. Additional spiculated nodule within the inferior right upper lobe seen at table position 100.2 measures 6 mm, unchanged. The previously seen tree-in-bud nodularity and groundglass which surrounded this lesion on prior examination is no visualized likely representing a resolved superimposed infectious process. There is no pneumothorax or pleural effusion. Limited views of the upper abdomen demonstrate an unchanged hypoattenuating lesion along the tail the pancreas likely representing sequela of prior necrotizing pancreatitis. Spleen is atrophic. No suspicious osseous lesion. Procedure Note Willam Renner MD - 04/03/2022 EXAMINATION: Computed tomography of the chest with intravenous contrast HISTORY: 56-year-old male with AML. Follow-up pulmonary nodule. TECHNIQUE: Transaxial computed tomographic images of the chest were obtained with intravenous contrast according to the standard protocol after the uneventful administration of 100 mL Opti-Ray 350 intravenous contrast. COMPARISON: 01/23/2022 FINDINGS: Thyroid gland is normal. No suspicious lymphadenopathy in the chest. Heart size is normal. There is no pericardial effusion. Thoracic aorta is normal in course and caliber. No large central pulmonary embolism. There is new partial collapse of the right middle lobe. No obstructing mass is noted. Unchanged spiculated nodule within the inferior right upper lobe lobe best seen at table position 120.2. Additional spiculated nodule within the inferior right upper lobe seen at table position 100.2 measures 6 mm, unchanged. The previously seen tree-in-bud nodularity and groundglass which surrounded this lesion on prior examination is no visualized likely representing a resolved superimposed infectious process. There is no pneumothorax or pleural effusion. Limited views of the upper abdomen demonstrate an unchanged hypoattenuating lesion along the tail the pancreas likely representing sequela of prior necrotizing pancreatitis. Spleen is atrophic. No suspicious osseous lesion. IMPRESSION: 1. Unchanged size of 2 inferior right upper lobe spiculated pulmonary nodules which are indeterminate but could represent focal scarring. 2. Interval resolution of previously seen right upper lobe groundglass opacities adjacent to the more lateral of the nodules which likely represents a resolved infectious process. Dictated by: Kaushik Toussaint M.D. The radiology attending physician has personally reviewed this study, and had reviewed and/or edited this written report and agrees with it. Electronically signed by: Willam Renner M.D., MPH Josué Del Valle MD PhD IMG CT PROCEDURES Final Result * Potassium, whole blood (02/28/2022 10:13 AM CDT) [facility] Potassium, bld 4.4 3.3 - 4.9 mmol/L [facility] Blood 02/28/2022 10:1 3 AM CDT 02/28/2022 10:21 AM CDT Narcisa Kilgore STAGING TECHNICIAN LAB BLOOD ORDERABLES Pilar l Result [facility] Department [place] [employer] [place] [address] * Vitamin D 25 hydroxy (02/28/2022 8:57 AM CDT) [facility] Vitamin D 25-OH 56 30 - 80 ng/mL [facility] Blood 02/28/2022 8:57 AM CDT 02/28/2022 9:26 AM CDT Narcisa Kilgore STAGING TECHNICIAN LAB BLOOD ORDERABLES Pilar l Result [facility] Department [place] [employer] [place] [address] * TSH reflex to free T4 (02/28/2022 8:57 AM CDT) [facility] TSH 0.64 0.30 - 4.20 mcIUnit/mL [facility] Blood 02/28/2022 8:57 AM CDT 02/28/2022 9:26 AM CDT us Narcisa Kilgore STAGING TECHNICIAN LAB BLOOD ORDERABLES Pilar armas Result [facility] [place] [address] * Lipid panel (02/28/2022 8:57 AM CDT) Cholesterol 153 30 - 199 mg/dL [facility] Comment: [...] Data was last revised on 2018. Triglycerides 82 <=149 mg/dL [facility] Comment: Interpretive Data Ages < [...] Data was last revised on 2018. HDL 59 >=40 mg/dL [facility] Comment: Interpretive Data Ages < [...] was last revised on 2018. LDL, calculated 78 <=129 mg/dL [facility] Comment: Interpretive Data Ages < [...] was last revised on 2018. Non-HDL Cholesterol 94 mg/dL [facility] Comment: Interpretive Data Ages < [...] last revised on 2018. Chol/HDL ratio 3 [facility] Blood 02/28/2022 8:57 AM CDT 02/28/2022 9:26 AM CDT Narcisa Kilgore NP LAB BLOOD ORDERABLES Pilar armas Result [facility] [place] [address] * Testosterone, Total and Free, Serum (02/28/2022 8:49 AM CDT) [facility] Testosterone 511 240 - 950 ng/dL [facility] Comment: ADDITIONAL INFORMATION Testing performed by Liquid Chromatography-Tandem Mass Spectrometry (LC-MS/MS). This test was developed and its performance characteristics determined by [facility] in a manner consistent with CLIA requirements. This test has not been cleared or approved by the U.S. Food and Drug Administration. Test Performed by: [facility] - [facility] [address] [place] [address] Cnc Wood Lathe Operator: Neftaly Keita M.D. Ph.D.; CLIA# [id number] Testosterone, free 7.67 3.87 - 14.7 ng/dL [facility] Comment: ADDITIONAL INFORMATION Testing performed by [facility]. This test was developed and its performance characteristics determined by [facility] in a manner consistent with CLIA requirements. This test has not been cleared or approved by the U.S. Food and Drug Administration. Blood 02/28/2022 8:49 AM CDT 02/28/2022 10:56 AM CDT Narcisa Kilgore STAGING TECHNICIAN LAB BLOOD ORDERABLES Pilar pawel Result [facility] One 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) documented in this encounter Discontinued Medications Medication Sig Discontinue Reason Start Date End Da te pantoprazole DR (PROTONIX) 40 mg EC tablet Take 1 tablet (40 mg total) by mouth daily 09/10/2021 02/28/2022 levoFLOXacin (LEVAQUIN) 750 mg tabletIndications:Pneumo tanya, Community Acquired Take 1 tablet (750 mg total) by mouth daily for 8 days 02/13/2022 02/28/2022 predniSONE (DELTASONE) 20 mg tablet Take 2 tablets (40 mg) by mouth daily for 3 doses 02/14/2022 02/28/2022 documented as of this encounter Orders Lab Orders Without Results Count Last Ordered D ate First Ordered Date T-HELPER CELLS (CD4) COUNT 1 02/28/2022 Appointment Requests Count Last Ordered Date Fi rst Ordered Date ONCBCN LAB APPOINTMENT 1 04/03/2022 documented in this encounter Care Teams Assistant Reading Teacher Relationship Specialty Start Date End Date Kirt Lindsay DO PCP - General Internal Medicine 02/02/21 Josué Del Valle MD PhD Medical Oncologist/Malt House Operator Medical Oncology 08/26/19 Tay Charlton MD Consulting Physician Gastroenterology 12/03/21 06/11/23 Halie Khan MD [address] [place] [address] Consulting Physician Pulmonary Disease 12/12/21 3 Ant Starks MD [address] [address] Consulting Physician Transplant Hepatology 01/12/22 documented as of this encounter
--- OUTSIDE RECORDS SUMMARY | 2024-11-22 10:55 | XMS_ITS | Encounter Summary ---
Author Organization [facility] Healthcare Address [address] [place] [address] Care Team Providers Care Home Energy Consultant Name Role Phone Josué Del Valle MD PhD Unavailable [phone] Kirt Lindsay DO Primary Care Provider [phone] Tay Charlton MD Unavailable [phone] Halie Khan MD Unavailable [phone] StarksAnt goldman MD Unavailable [phone] Encounter Details Date Type Department Care Team (Late st Contact Info) Description 03/30/2022 Telephone [facility] Social Work [address] [place] [id number] Anna Vaughn LCSW Social History Tobacco Use [...] on file 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 [employer] [facility] - has accepted round trip, tracking #[id number]. Purchase Analyst Time: 7:40am Appt time: 8:40am Pick-Up Address: [address] [facility] [address] Drop Off Address: [facility] [place] [address] SW called and left pt VM with this information and encouraged to reach out with any questions or concerns. BRIGID Casarez, MARLIN documented in this encounter Plan of Treatment Not on file documented as of this encounter Visit Diagnoses Not on filedocumented in this encounter Care Teams Home Energy Consultant Relationship Specialty Start Date End Date Kirt Lindsay DO PCP - General Internal Medicine 02/02/21 Josué Del Valle MD PhD Medical Oncologist/Lead Furnace Operator Medical Oncology 08/26/19 aTy Charlton MD Consulting Physician Gastroenterology 12/03/21 06/11/23 Halie Khan MD [address] [place] [address] Consulting Physician Pulmonary Disease 12/12/21 3 Ant Starks MD [address] [place] [address] Consulting Physician Transplant Hepatology 01/12/22 documented as of this encounter
--- OUTSIDE RECORDS SUMMARY | 2024-11-22 10:55 | XMS_ITS | Encounter Summary ---
Author Organization [facility] Healthcare Address [address] [place] [address] Care Team Providers Care Machine Compositor Name Role Phone Josué Del Valle MD PhD Unavailable [phone] Kirt Lindsay DO Primary Care Provider [phone] Tay Charlton MD Unavailable [phone] Halie Khan MD Unavailable [phone] StarksAnt goldman MD Unavailable [phone] Reason for Visit * Reason Comments OP Infusion zometa * Episode Based Medications (Routine) - Closed Specialty Diagnoses / Procedures Referred By Contac t Referred To Contact Diagnoses Other osteoporosis without current pathological fracture 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HCC) Procedures [facility] ZOLEDRONIC ACID [address] Montejo MD [address] [facility] [place] [address] Phone: tel: fax: [facility] Oncology [address] [place] [address] Phone: tel: Referral ID Status Reason Start Date Expiration Date Visits Re quested Visits Authorized [id number] Closed 08/11/2021 11/17/2022 1 12 Encounter Details Date Type Department Care Team (Latest Contact Info) Description 02/28/2022 9:59 AM CDT - 02/28/2022 11:15 AM CDT Hospital Encounter [facility] [place] [address] Josué Del Valle MD PhD [address] DIV IM BONE MARROW TRANSPLANT, [address] [place] [address] 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) (Primary Dx); Other osteoporosis without current pathological fracture; 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HCC) Discharge Disposition: Discharge to home or [...] on file 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 Gender Identity Not on file Sexual Orientation Not on file documented as of this encounter Last Filed Vital Signs Vital Sign Reading Time Taken Comments Blood Pressure 112/62 02/28/2022 11:04 AM CDT Pulse 61 02/28/2022 11:04 AM CDT Temperature 36.6 ??C (97.9 ??F) 02/28/2022 11:04 AM C DT Respiratory Rate 18 02/28/2022 11:04 AM CDT Oxygen Saturation 96% 02/28/2022 11:04 AM CDT Inhaled Oxygen Concentration - - Weight - - Height - - Body Mass Index - - documented in this encounter Discharge Diagnoses Diagnosis Acute myeloblastic leukemia, in remission (HCC) - ACUTE MYELOBLASTIC LEUKEMIA, IN REMISSION documented in this encounter Discharge Instructions * Patient Instructions* Justine Ramírez RN - 02/28/2022 11:06 AM CDT .After 4:30 PM during the week, on weekends and holidays, call [phone] and ask to have the Accreditation Manager Physician paged for you. Saturday through Saturday, 8 AM to 4:30 PM, call [phone] [facility] Oncology Physician at [facility] and ask for a member of your doctor's team. Special Instructions: ?? Drink at least 64 ounces of decaffeinated liquid every day. ?? Take your temperature 2 times a day. ?? Bring your bottles of all medicines you are taking with you or a complete medication list to allappointments. Additional Information: ?? Diet: As tolerated. Avoid raw or undercooked meats. ?? Activity: As tolerated. ?? Care Instructions: Take all medications as prescribed. ?? Special Instructions: ?? Drink at least 64 ounces of decaffeinated liquid every day. ?? Take your temperature 2 times a day. Bring your bottles of all medicines you are taking or a complete medication list with you to all appointments. CALL YOUR DOCTOR RIGHT AWAY IF YOU HAVE: ?? A temperature of 100.5 F or 38 C ?? Shaking chills ?? DO NOT take Tylenol, aspirin, or ibuprofen unless your doctor tells you to ?? A hard time breathing - Shortness of breath at rest or after minimal exertion ?? Vomiting that is not controlled by your anti-nausea medicine ?? Nausea that prevents you from eating, drinking or taking medicine, and is not being controlled by your anti-nausea medicine ?? Unusual or heavy bleeding ?? Blood in urine, black or bloody stool, or nosebleeds ?? Feeling confused or very sleepy - Weakness or dizziness ?? Pain of increased intensity or development of new pain, including strong headaches CALL WITHIN 24 HOURS FOR: ?? Pain or skin changes at the drug injection site ?? Diarrhea for more than 2 days that is not controlled by anti diarrhea medicine ?? Watery diarrhea, stomach cramps, or nausea that doesn't go away ?? No bowel movement for 2 or more days ?? Frequent and/or painful urinating ?? Persistent cough or a cough producing yellow or green mucous ?? Mouth sores ?? Skin rash ?? If you are unable to get your medicines at the pharmacy ?? Avoid taking any non-prescription medicine without your doctor's approval documented in this encounter Medications at Time [...] mg tabletIndications:AML (acute myeloid leukemia) in remission ([facility]),Type 2 diabetes mellitus with hyperglycemia, with long-term current use of insulin ([facility]),Gfqgy-okczke-uwyz disease ([facility]),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[facility]),Pure hypercholesterolemia Take 1 tablet (40 mg total) by mouth daily 30 tablet 6 0 07/30/20 24 blood-glucose meter miscIndications:Type 2 diabetes mellitus with hyperosmolarity 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, with long-term current use of insulin ([facility]) 1 Device 3 (three) times [...] unit capsuleIndications: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),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HCC),Vitamin D deficiency TAKE 1 CAPSULE BY MOUTH ONCE A WEEK DIRECTED 12 capsule 3 1 02/20/20 24 furosemide (LASIX) 20 mg tabletIndications:Type 2 diabetes mellitus with hyperosmolarity 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, with long-term current use of insulin ([facility]) Take 1 tablet (20 mg [...] coma, with long-term current use of insulin ([facility]) INJECT 15 UNITS NIGHTLY SUB-Q. 1 pen 5 1 02/20/20 24 insulin lispro (HumaLOG, ADMELOG) 100 unit/mL pen for injectionIndications:Typ e 2 diabetes mellitus with hyperosmolarity 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, with long-term current use of insulin ([facility]) INJECT 5-10 UNITS TID WITH MEALS PLUS SLIDING SCALE. TDD OF 35 UNITS. 10 pen 6 1 02/20/20 24 montelukast (SINGULAIR) 10 mg tabletIndications: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),Fbocl-hwiqja-vzxt disease (HCC) TAKE 1 TABLET BY MOUTH EVERY DAY 90 tablet 2 03/26/20 22 mycophenolate mofetil (CELLCEPT) 500 mg tabletIndications: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),Owuqa-wqnivw-tzei disease (HCC) TAKE 2 TABLETS(1000 MG) BY [...] 2 02/20/20 24 Trelegy Ellipta 100-62.5-25 mcg inhalerIndications:[facility] hospasm Prevention with COPD Inhale 1 puff daily 30 each 1 2 10/05/20 22 voriCONAZOLE (VFEND) 200 mg tabletIndications:stem Cell Transplant Take 1 tablet (200 mg total) by mouth 2 (two) times a day 60 tablet 3 2 05/28/20 22 documented as of this encounter Discharge Disposition Disposition Code Departure Means Destination Discharge to home or self care documented in this encounter Nursing Notes * Justine Ramírez RN - 02/28/2022 11:13 AM CDT Patient arrived to [facility] for zoledronic acid infusion and lab draw. Plan of care reviewed with patient and he verbalized understanding. PIV inserted and lab drawn. Zoledronic acid infused and toleratedwell. PIV removed. AVS given to patient and he verbalized understanding. Patient d/c home in stablecondition with friend. documented in this encounter Plan of Treatment Not on file documented as of this encounter Procedures Procedure Name Priority Date/Time Associated Diagnosis Comments POTASSIUM, WHOLE BLOOD Routine 02/28/2022 10:13 AM CDT 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) ([facility]) documented in this encounter Results * Potassium, whole blood (02/28/2022 10:13 AM CDT) Potassium, bld 4.4 3.3 - 4.9 mmol/L [facility] Blood 02/28/2022 10:1 3 AM CDT 02/28/2022 10:21 AM CDT us Narcisa Kilgore NP LAB BLOOD ORDERABLES Pilar l Result [facility] One [facility] Department [place] [address] documented in this encounter Visit Diagnoses Diagnosis 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)- Primary Other osteoporosis without current pathological fracture 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[facility]) documented in this encounter Administered Medications Inactive Administered Medications - up to 3 most recent administrations Medication Order MAR Action Action Date Dose Rate Site sodium chloride 0.9% flush 10 mL 10 mL, intravenous, As needed, line care, Starting on Sat02/28/22 at 0958, Flush pre and post IV catheter use.Indications:Other osteoporosis without current pathological fracture,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HCC) zoledronic acid 5 mg in sodium chloride 0.9% 100 mL IVPB 5 mg, intravenous, at 318.8 mL/hr, Administer over 20 Minutes, Once, On Sat02/28/22 at 1030, For 1 doseIndications:Other osteoporosis without current pathological fracture,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HCC) New Bag 02/28/2022 10:37 AM CDT 5 mg 318.8 mL/hr documented in this encounter Active and Recently Administered Medications Times are shown in CDT. Scheduled Medication Order 02/26/2022 02/27/2022 02/28/2022 zoledronic acid 5 mg in sodium chloride 0.9% 100 mL IVPB (COMPLETED) 5 mg, intravenous, at 318.8 mL/hr, Administer over 20 Minutes, Once, On Sat02/28/22 at 1030, For 1 dose 1037 (New Bag - Prov ider: Justine Ramírez RN)1113 (Stopped - Provider: Justine Ramírez RN) PRN Medication Order 02/26/2022 02/27/2022 02/28/2022 sodium chloride 0.9% flush 10 mL 10 mL, intravenous, As needed, line care, Starting on Sat02/28/22 at 0958, Flush pre and post IV catheter use. documented in this encounter Orders Medications Ordered That Girma ht Not Have Been Administered Count Last Ordered Date First Ordered Date sodium chloride 0.9% flush 10 mL 1 02/29/20 zoledronic acid 5 mg in sodi um chloride 0.9% 100 mL IVPB 1 02/28/2022 documented in this encounter Care Teams Machine Compositor Relationship Specialty Start Date End Date Kirt Lindsay DO PCP - General Internal Medicine 02/02/21 Josué Del Valle MD PhD Medical Oncologist/Rug Receiving Clerk Medical Oncology 08/26/19 Tay Charlton MD Consulting Physician Gastroenterology 12/03/21 06/11/23 Halie Khan MD [address] [place], [place] [address] Consulting Physician Pulmonary Disease 12/12/21 3 Ant Starks MD [address] [place], [place] [address] Consulting Physician Transplant Hepatology 01/12/22 documented as of this encounter
--- OUTSIDE RECORDS SUMMARY | 2024-11-22 10:55 | XMS_ITS | Encounter Summary ---
Author Organization [facility] Address [address] [place] [address] Phone Care Team Providers Care Field Irrigation Worker Name Role Phone Josué Del Valle MD PhD Unavailable [phone] Kirt Lindsay DO Primary Care Provider [phone] Tay Charlton MD Unavailable [phone] Halie Khan MD Unavailable [phone] StarksAnt goldman MD Unavailable [phone] Encounter Details Date Type Department Care Team (Late st Contact Info) Description 04/11/2022 Orders Only [facility] Bone Marrow Transplant [address] [facility] [address]th [address], [place] [address] Silva Mortensen RMA 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); Jxbqs-jzfomy-zroc disease (HCC) Social History Tobacco Use Types Packs/Day [...] on file 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 Gender Identity Not on file Sexual Orientation Not on file documented as of this encounter Ordered Prescriptions Prescription Sig Dispense Quantity Refills Last Filled Start Date End Date mycophenolate mofetil (CELLCEPT) 500 mg tabletIndications: immunosuppression maintenance tx for lung transplant,Stem cell transplant Take 2 tablets (1,000 mg total) by mouth 2 (two) times a day 180 tablet 1 04/11/2022 3 documented in this encounter Plan of Treatment Not on file documented as of this encounter Visit Diagnoses Diagnosis 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) Gfrhe-faumdb-pcpz disease (HCC) documented in this encounter Discontinued Medications Medication Sig Discontinue Reason Start Date End Da te mycophenolate mofetil (CELLCEPT) 500 mg tabletIndications: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),Xcdap-wuenqn-ibnd disease (HCC) TAKE 2 TABLETS(1000 MG) BY MOUTH TWICE DAILY Reorder 02/21/2021 04/11/2022 documented as of this encounter Care Teams Field Irrigation Worker Relationship Specialty Start Date End Date Kirt Lindsay DO PCP - General Internal Medicine 02/02/21 Josué Del Valle MD PhD Medical Oncologist/Tow Picker Medical Oncology 08/26/19 Tay Charlton MD Consulting Physician Gastroenterology 12/03/21 06/11/23 Halie Khan MD [address] [address] Consulting Physician Pulmonary Disease 12/12/21 3 Ant Starks MD [address] [facility] [address] [place] [address] Consulting Physician Transplant Hepatology 01/12/22 documented as of this encounter
--- OUTSIDE RECORDS SUMMARY | 2024-11-22 10:55 | XMS_ITS | Encounter Summary ---
Author Organization [facility] Address [address] [place] [address] Care Team Providers Care Insole Doubler Name Role Phone Josué Del Valle MD PhD Unavailable [phone] Kirt Lindsay DO Primary Care Provider [phone] Tay Charlton MD Unavailable [phone] Halie Khan MD Unavailable [phone] StarksAnt goldman MD Unavailable [phone] Reason for Referral * MRI/CAT/PET Scan (Routine) - Closed Specialty Diagnoses / Procedures [facility] Radiology Diagnoses 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) Procedures CT chest with contrast Josué Del Valle MD PhD Phone: tel: fax: [address] [phone] Referral ID Status Reason Start Date Expiration Date Visits Re quested Visits Authorized [id number] Closed 02/28/2022 03/30/2023 1 1 Reason for Visit * MRI/CAT/PET Scan (Routine) - Closed Specialty Diagnoses / Procedures Referred By Contac t Referred To Contact Radiology Diagnoses 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) Procedures CT chest with contrast Josué Del Valle MD PhD Phone: tel: fax: [address] [address] Referral ID Status Reason Start Date Expiration Date Visits Re quested Visits Authorized [id number] Closed 02/28/2022 03/30/2023 1 1 Encounter Details Date Type Department Care Team (Latest Contact Info) Description 04/03/2022 8:40 AM CDT - 04/03/2022 10:09 AM CDT Hospital Encounter [facility] [address] [place] [id number] Josué Del Valle MD PhD [address] DIV IM BONE MARROW TRANSPLANT, [address] [place] [address] AML (acute myeloid leukemia) in [...] on file 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 Gender Identity Not on file Sexual Orientation [...] tabletIndications:AML (acute myeloid leukemia) in remission ([facility]) TAKE 1 TABLET(400 MG) BY MOUTH EVERY 8 HOURS 270 tablet 1 2 06/11/20 22 albuterol HFA (PROVENTIL HFA,VENTOLIN HFA,PROAIR HFA) 90 mcg/actuation inhalerIndications:Chron ic Obstructive Pulmonary Disease Inhale 2 puffs every 4 (four) hours as needed for wheezing 3 each 3 2 10/22/20 22 atorvastatin (LIPITOR) 40 mg tabletIndications:AML (acute myeloid leukemia) in remission ([facility]),Type 2 diabetes mellitus with hyperglycemia, with long-term current use of insulin ([facility]),Cgubg-vammwu-wxig disease ([facility]),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[facility]),Pure hypercholesterolemia Take 1 tablet (40 mg total) by mouth daily 30 tablet 6 0 07/30/20 24 blood-glucose meter miscIndications:Type 2 diabetes mellitus with hyperosmolarity 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, with long-term current use of insulin ([facility]) 1 Device 3 (three) times a day [...] capsuleIndications:AML (acute myeloid leukemia) in remission ([facility]),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[facility]),Vitamin D deficiency TAKE 1 CAPSULE BY MOUTH ONCE A WEEK DIRECTED 12 capsule 3 1 02/20/20 24 furosemide (LASIX) 20 mg tabletIndications:Type 2 diabetes mellitus with hyperosmolarity 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, with long-term current use of insulin ([facility]) Take 1 tablet (20 mg total) by [...] with long-term current use of insulin ([facility]) INJECT 15 UNITS NIGHTLY SUB-Q. 1 pen 5 1 02/20/20 24 insulin lispro (HumaLOG, ADMELOG) 100 unit/mL pen for injectionIndications:Typ e 2 diabetes mellitus with hyperosmolarity 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, with long-term current use of insulin ([facility]) INJECT 5-10 UNITS TID WITH MEALS PLUS SLIDING SCALE. TDD OF 35 UNITS. 10 pen 6 1 02/20/20 24 montelukast (SINGULAIR) 10 mg tabletIndications: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),Oslvf-tybovy-xagp disease (HCC) TAKE 1 TABLET BY MOUTH EVERY DAY 90 tablet 2 06/26/20 22 mycophenolate mofetil (CELLCEPT) 500 mg tabletIndications: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),Ndlof-wewkro-qzqr disease (HCC) TAKE 2 TABLETS(1000 MG) BY [...] 2 02/20/20 24 Trelegy Ellipta 100-62.5-25 mcg inhalerIndications:[facility] hospasm Prevention [...] Name Priority Date/Time Associated Diagnosis Comments CT CHEST W CONTRAST Schedule Routine, Read Routine (OP Routine) 04/03/2022 10:07 AM CDT 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) POCT CREATININE - DEVICE Routine 04/03/2022 9:27 AM CDT documented in this encounter Results * CT chest with contrast (04/03/2022 10:07 [...] PhD IMG CT PROCEDURES Final Result * POCT creatinine (04/03/2022 9:27 AM CDT) Creatinine POC 1.0 0.7 - 1.3 mg/dL [facility] Blood 04/03/2022 9:27 AM CDT 04/03/2022 9:27 AM CDT Josué Del Valle MD PhD LAB POCT ORDERABLES - DE VICE Final Result [facility] Department [place] [address] documented in this encounter Visit Diagnoses Diagnosis 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) documented in this encounter Administered Medications Inactive Administered Medications - up to 3 most recent administrations Medication Order MAR Action Action Date Dose Rate Site ioversoL (OPTIRAY 350) syringe syringe 125 mL 125 mL, intravenous, Once in imaging, contrast, Starting on Sat04/03/22 at 1006, For 1 dose Contrast Given 04/03/2022 10:06 AM CDT 100 mL documented in this encounter Orders Medications Ordered That Girma ht Not Have Been Administered Count Last Ordered Date First Ordered Date ioversoL (OPTIRAY 350) syrin ge syringe 125 mL 1 04/03/2022 documented in this encounter Care Teams Insole Doubler Relationship Specialty Start Date End Date Kirt Lindsay DO PCP - General Internal Medicine 02/02/21 Josué Del Valle MD PhD Medical Oncologist/Clinical Study Manager Medical Oncology 08/26/19 Tay Charlton MD Consulting Physician Gastroenterology 12/03/21 06/11/23 Halie Khan MD [address] [place] [id number] Consulting Physician Pulmonary Disease 12/12/21 3 Ant Starks MD [address] [id number] Consulting Physician Transplant Hepatology 01/12/22 documented as of this encounter
--- OUTSIDE RECORDS SUMMARY | 2024-11-22 10:55 | XMS_ITS | Encounter Summary ---
Author Organization [facility] Address [address] [place] [address] Phone Care Team Providers Care Petroleum Transport Driver Name Role Phone Josué Del Valle MD PhD Unavailable [phone] Kirt Lindsay DO Primary Care Provider [phone] Tay Charlton MD Unavailable [phone] Halie Khan MD Unavailable [phone] StarksAnt goldman MD Unavailable [phone] Encounter Details Date Type Department Care Team (Late st Contact Info) Description 02/27/2022 Telephone [facility] Bone Marrow Transplant [facility] 7th Floor, [place] [address] Josué Del Valle MD PhD [address] DIV BONE MARROW TRANSPLANT, [address] [place] [address] Social History Tobacco Use Types [...] on file 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 * Telephone Encounter - Marisa Mcdermott - 02/27/2022 11:11 AM CDT Patient calling as he has appointments tomorrow but doesn't have a ride. He is asking if someone can help with assisting him to get a ride. documented in this encounter Plan of Treatment Not on file documented as of this encounter Visit Diagnoses Not on filedocumented in this encounter Care Teams Petroleum Transport Driver Relationship Specialty Start Date End Date Kirt Lindsay DO PCP - General Internal Medicine 02/02/21 Josué Del Valle MD PhD Medical Oncologist/Retail Parts Professional Medical Oncology 08/26/19 Tay Charlton MD Consulting Physician Gastroenterology 12/03/21 06/11/23 Halie Khan MD [address] [place] [address] Consulting Physician Pulmonary Disease 12/12/21 3 Ant Starks MD [address] [facility] [address] [place], [place] [id number] Consulting Physician Transplant Hepatology 01/12/22 documented as of this encounter
--- OUTSIDE RECORDS SUMMARY | 2024-11-22 10:55 | XMS_ITS | Encounter Summary ---
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 Role Phone Josué Del Valle MD PhD Unavailable [phone] Kirt Lindsay DO Primary Care Provider [phone] Tay Charlton MD Unavailable [phone] Halie Khan MD Unavailable [phone] Ant Starsk MD Unavailable [phone] Reason for Visit * Oncology (Routine) - Closed Specialty Diagnoses / Procedures Referred By Contac t Referred To Contact Lab Diagnoses Type 2 diabetes mellitus with hyperosmolarity 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, with long-term current use of insulin (HCC) Osteopenia, unspecified location Procedures ONCBCN ARM DRAW APPT [facility] Scheduling [address] [place] [address] Phone: tel: [facility] Oncology [address] [facility] Advanced [facility] 7th [place] [address] [place] [address] Phone: tel: Referral ID Status Reason Start Date Expiration Date V isits Requested Visits Authorized [id number] Closed Specialty Services Required 11/23/2021 11/17/2023 99 [phone] Encounter Details Date Type Department Care Team (Late st Contact Info) Description 02/28/2022 8:15 AM CDT Lab [facility] Oncology [address] [facility] 7th [place] [address] [place] [address] 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); Type 2 diabetes mellitus with hyperosmolarity 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, with long-term current use of insulin (CMS/HCC) (HCC); Lkjks-bswtmn-jhkk disease (HCC); Other osteoporosis without current pathological fracture; Vitamin D deficiency; Screening for thyroid disorder Social History Tobacco Use Types Packs/Day Years [...] on file Legal 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[employer] Gender Identity Not on file Sexual Orientation Not on file documented as of this encounter Plan of Treatment Not on file documented as of this encounter Procedures Procedure Name Priority Date/Time Associated Diagnosis Comments EGFR Routine 02/28/2022 8:57 AM CDT 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) DIFFERENTIAL AUTO Routine 02/28/2022 8:5 7 AM CDT 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) THYROID FUNCTION CASCADE Routine 02/28/2022 8:57 AM CDT 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) CBC WITH AUTO DIFFERENTIAL Routine 02/28/2022 8:57 AM CDT 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) ALBUMIN CREATININE RATIO, URINE STAT 02/28/2022 8:57 AM CDT Type 2 diabetes mellitus with hyperosmolarity 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, with long-term current use of insulin (CMS/HCC) (HCC) Vitamin D deficiency Lrfih-abrgez-tmpd disease (HCC) Other osteoporosis without current pathological fracture Screening for thyroid disorder VITAMIN D 25 HYDROXY Routine 02/28/2022 8:57 AM CDT 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) T-HELPER CELLS (CD4) COUNT Routine 02/28/2022 8:57 AM CDT TSH STAT 02/28/2022 8:57 AM CDT Type 2 diabetes mellitus with hyperosmolarity 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, with long-term current use of insulin (CMS/HCC) (HCC) Vitamin D deficiency Omsxh-vblwuj-lwdo disease (HCC) Other osteoporosis without current pathological fracture Screening for thyroid disorder T4, FREE STAT 02/28/2022 8:57 AM CDT Type 2 diabetes mellitus with hyperosmolarity 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, with long-term current use of insulin (CMS/HCC) (HCC) Vitamin D deficiency Oditc-ayvejz-ocuw disease (HCC) Other osteoporosis without current pathological fracture Screening for thyroid disorder LACTATE DEHYDROGENASE Routine 02/28/2022 8:57 AM CDT 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) HEMOGLOBIN A1C STAT 02/28/2022 8:57 AM CDT Type 2 diabetes mellitus with hyperosmolarity 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, with long-term current use of insulin (CMS/HCC) (HCC) Vitamin D deficiency Vlwht-ntcthx-ntfn disease (HCC) Other osteoporosis without current pathological fracture Screening for thyroid disorder LIPID PANEL Routine 02/28/2022 8:57 AM CDT 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) COMPREHENSIVE METABOLIC PANEL Routine 02/28/2022 8:57 AM CDT 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) TESTOSTERONE, TOTAL AND FREE, SERUM Routine 02/28/2022 8:49 AM CDT 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) documented in this encounter Results * (ABNORMAL) T-helper cells (CD4) count (02/28/2022 8:57 AM CDT) [facility] CD4 pct 35 31 - 64 % [facility] CD4 Absolute 1,435(H) 365 - 1,294 cells/mcL [facility] Blood 02/28/2022 8:57 AM CDT 02/28/2022 10:11 AM CDT Narcisa Kilgore NP LAB BLOOD ORDERABLES Pilar armas Result Performing Organization Address City/State/RUST Co de Phone Number [facility] Department [place] [address] * eGFR (02/28/2022 8:57 AM CDT) [facility] eGFR >90 90 - 130 mL/min/1. 73 m2 [facility] Comment: Interpretive Data Reference Interval Normal ?>/= [...] was last reviewed 2021. Testing performed by: [facility], [address] [place] [phone] Blood 02/28/2022 8:57 AM CDT 02/28/2022 9:00 AM CDT us Narcisa Kilgore NP LAB BLOOD ORDERABLES Pilar l Result [facility] [place] [address] * (ABNORMAL) Differential, auto (02/28/2022 8:57 AM CDT) Neutrophil abs 3.3 1.8 - 6.6 K/cumm [facility] Comment:Testing performed by : [facility], [address] [place] [phone] Lymphocyte abs 4.1(H) 1.2 - 3.3 K/cumm [facility] Comment:Testing performed by : [facility], [address] [place] [phone] Monocyte abs 1.1 0.2 - 1.2 K/cumm [facility] Comment:Testing performed by : [facility], [address] [place] [phone] Eosinophil abs 0.4 0.0 - 0.5 K/cumm [facility] Comment:Testing performed by : [facility], [address] [place] [phone] Basophil abs 0.1 0.0 - 0.2 K/cumm [facility] Comment:Testing performed by : [address] [address] Neutrophil pct 36.5 % [facility] Comment: Interpretive Data Percent cell count reference ranges are not reported, since discordance with absolute values may lead to misinterpretation of CBC data. Current Interpretive Data was last revised on 2018. Testing performed by: [facility], [facility] [phone] Lymphocyte pct 45.3 % [facility] Comment: Interpretive Data Percent cell count reference ranges are not reported, since discordance with absolute values may lead to misinterpretation of CBC data. Current Interpretive Data was last revised on 2018. Testing performed by: [facility], [address] [place] [phone] Monocyte pct 12.2 % [facility] Comment:Testing performed by : [facility], [address] [place] [phone] Eosinophil pct 4.8 % [facility] Comment:Testing performed by : [facility], [address] [place] [phone] Basophil pct 1.2 % [facility] Comment:Testing performed by : [facility], [address] [place] [phone] Blood 02/28/2022 8:57 AM CDT 02/28/2022 9:00 AM CDT us Narcisa Kilgore MOTOR EXPRESS CLERK LAB BLOOD ORDERABLES Pilar l Result Performing Organization Address City/[facility]/ZIP Co de Phone Number [facility] [place] [address] * T4, free (02/28/2022 8:57 AM CDT) Free T4 1.15 0.90 - 1.70 ng/dL [facility] Blood 02/28/2022 8:57 AM CDT 02/28/2022 9:[address] Montejo MD LAB BLOOD ORDERABLES Final Resu lt Performing Organization Address City/[facility]/ZIP Co de Phone Number [facility] [place] [address] * TSH (02/28/2022 8:57 AM CDT) Thyroid Stimulating Hormone See Comment 0.30 - 4.20 mcIUnit/m L [facility] Comment:Credited, duplicate test. Blood 02/28/2022 8:57 AM CDT 02/28/2022 9:[address] Montejo MD LAB BLOOD ORDERABLES Final Resu lt Performing Organization Address [facility]/RUST Co de Phone Number [facility] [place] [address] * (ABNORMAL) Hemoglobin A1c (02/28/2022 8:57 AM CDT) Hgb A1C 7.9(H) 4.0 - 5.6 % [facility] Estimated Average Glucose 180 mg/dL [facility] Comment: The ADA recommends reporting an estimated Average Glucose (eAG) with all Hemoglobin A1c results using the equation derived from a study of 507 normal and diabetic adults. ??Minority populations were underrepresented and children were not included. ?? (Diabetes Care 2020; 43(S1): S66-S76). ??The eAG is not equivalent to a fasting glucose. Blood 02/28/2022 8:57 AM CDT 02/28/2022 9:[address] Montejo MD LAB BLOOD ORDERABLES Final Resu lt Performing Organization Address City/[facility]/RUST Co de Phone Number [facility] [place] [address] * Albumin Creatinine Ratio, Urine (02/28/2022 8:57 AM CDT) Albumin Ur <12.0 mg/L [facility] Comment: Interpretive Data No reference range established. Current interpretive data was last revised 2019. Creatinine Ur 42.0 mg/dL [facility] Comment: Interpretive Data No reference range established. Current interpretive data was last revised 2019. Albumin Creatinine Ratio, Ur <29 1 - 29 mg/g [facility] Urine 02/28/2022 8:57 AM CDT 02/28/2022 1:[address] Montejo MD LAB URINE ORDERABLES Final Resu lt [facility] [place] [address] * (ABNORMAL) CBC with auto differential (02/28/2022 8:57 AM CDT) WBC 9.0 3.8 - 9.8 K/cumm [facility] Comment:Testing performed by : [facility], [address] [place] [phone] Hgb 11.6(L) 13.8 - 17.2 g/dL [facility] Comment:Testing performed by : [address] [address] Hct 33.9(L) 40.7 - 50.3 % [facility] Comment:Testing performed by : [facility], [address] [place] [phone] Plt 309 140 - 440 K/cumm [facility] Comment:Testing performed by : [address] [phone] MPV 7.5 6.8 - 10.4 fL [facility] Comment:Testing performed by : [address] [address] RBC 3.23(L) 4.50 - 5.70 M/cumm [facility] Comment:Testing performed by : [address] [phone] MCV 105.0(H) 80.0 - 97.6 fL [facility] Comment:Testing performed by : [address] [address] MCH 36.0(H) 26.7 - 33.7 pg [facility] Comment:Testing performed by : [address] [phone] MCHC 34.2 32.7 - 35.5 g/dL [facility] Comment:Testing performed by : [facility], [address] [place] [phone] RDW CV 16.6(H) 11.8 - 14.6 % [facility] Comment:Testing performed by : [facility], [address] [place] [phone] NRBC abs 0.02(H) 0.00 - 0.01 K/cumm [facility] Comment:Testing performed by : [facility], [address] [place] [phone] Blood 02/28/2022 8:57 AM CDT 02/28/2022 9:00 AM CDT Narcisa Kilgore NP LAB BLOOD ORDERABLES Pilar armas Result [facility] [place] [address] * (ABNORMAL) Comprehensive metabolic panel (02/28/2022 8:57 AM CDT) Sodium 138 135 - 145 mmol/L [facility] Comment:Testing performed by : [facility], [address] [place] [phone] Potassium, pl 5.7(H) 3.3 - 4.9 mmol/L [facility] Comment:Testing performed by : [facility], [address] [place] [phone] Chloride 101 97 - 110 mmol/L [facility] Comment:Testing performed by : [facility], [address] [place] [phone] CO2 30 22 - 32 mmol/L [facility] Comment:Testing performed by : [address] [address] Anion gap 7 2 - 15 mmol/L [facility] Comment:Testing performed by : [address] [address] BUN 15 8 - 25 mg/dL [facility] Comment:Testing performed by : [facility] [address] Creatinine 0.66(L) 0.80 - 1.30 mg/dL [facility] Comment:Testing performed by : [facility], [address] [place] [phone] Glucose 163 70 - 199 mg/dL [facility] Comment: [...] was last revised 2017. Testing performed by: [place] [phone] Calcium 9.7 8.5 - 10.3 mg/dL [facility] Comment:Testing performed by : [facility], [address] [place] [phone] Bilirubin, total 0.4 0.1 - 1.2 mg/dL [facility] Comment:Testing performed by : [address] [address] Protein, pl 7.0 6.5 - 8.5 g/dL [facility] Comment:Testing performed by : [address] [address] Albumin 4.0 3.5 - 5.0 g/dL [facility] Comment:Testing performed by : [address] [phone] Alk phos 221(H) 40 - 130 Units/L [facility] Comment:Testing performed by : [address] [address] ALT 48 7 - 55 Units/L [facility] Comment:Testing performed by : [place] [phone] AST 39 10 - 50 Units/L [facility] Comment:Testing performed by : [facility], [address] [place] [phone] Blood 02/28/2022 8:57 AM CDT 02/28/2022 9:00 AM CDT Narcisa Kilgore MOTOR EXPRESS CLERK LAB BLOOD ORDERABLES Pilar l Result Performing Organization Address [facility]/RUST Co de Phone Number [facility] [place] [address] * Lactate dehydrogenase (LD) (02/28/2022 8:57 AM CDT) Lactate dehydrogenase (LDH) 199 100 - 250 Units/L [facility] Comment:Testing performed by : [facility], [address] [place] [phone] Blood 02/28/2022 8:57 AM CDT 02/28/2022 9:00 AM CDT Narcisa Kilgore MOTOR EXPRESS CLERK LAB BLOOD ORDERABLES Pilar l Result Performing Organization Address [facility]/RUST Co de Phone Number [facility] [place] [address] * Lipid panel (02/28/2022 8:57 AM CDT) Cholesterol 153 30 - 199 mg/dL [facility] Comment: Interpretive Data Ages < or [...] revised on 2018. Triglycerides 82 <=149 mg/dL [facility] Comment: Interpretive Data Ages < or [...] revised on 2018. HDL 59 >=40 mg/dL [facility] Comment: Interpretive Data Ages < or [...] on 2018. LDL, calculated 78 <=129 mg/dL [facility] Comment: Interpretive Data Ages < or [...] revised on 2018. Non-HDL Cholesterol 94 mg/dL [facility] Comment: Interpretive Data Ages < or = [...] last revised on 2018. Chol/HDL ratio 3 [facility] Blood 02/28/2022 8:57 AM CDT 02/28/2022 9:26 AM CDT us Narcisa Kilgore MOTOR EXPRESS CLERK LAB BLOOD ORDERABLES Pilar armas Result Z[facility] Department of Laboratories [place], [place] [id number] * TSH reflex to free T4 (02/28/2022 8:57 AM CDT) TSH 0.64 0.30 - 4.20 mcIUnit/mL [facility] Blood 02/28/2022 8:57 AM CDT 02/28/2022 9:26 AM CDT Narcisa Kilgore MOTOR EXPRESS CLERK LAB BLOOD ORDERABLES Pilar l Result Performing Organization Address City/[facility]/[place] [address] * Vitamin D 25 hydroxy (02/28/2022 8:57 AM CDT) Pathologist [facility] Vitamin D 25-OH 56 30 - 80 ng/mL [facility] Blood 02/28/2022 8:57 AM CDT 02/28/2022 9:26 AM CDT Narcisa Kilgore MOTOR EXPRESS CLERK LAB BLOOD ORDERABLES Pilar l Result Performing Organization Address [facility] de Phone Number [facility] [place] [address] * Testosterone, Total and Free, Serum (02/28/2022 8:49 AM CDT) [facility] Testosterone 511 240 - 950 ng/dL [facility] Comment: ADDITIONAL INFORMATION Testing performed by Liquid Chromatography-Tandem Mass Spectrometry (LC-MS/MS). This test was developed and its performance characteristics determined by [facility] in a manner consistent with CLIA requirements. This test has not been cleared or approved by the U.S. Food and Drug Administration. Test Performed by: [facility] [address] [place] [address] Jailkeeper: Neftaly Keita M.D. Ph.D.; CLIA# [id number] Testosterone, free 7.67 3.87 - 14.7 ng/dL [facility] Comment: ADDITIONAL INFORMATION Testing performed by [facility]. This test was developed and its performance characteristics determined by [facility] in a manner consistent with CLIA requirements. This test has not been cleared or approved by the U.S. Food and Drug Administration. Blood 02/28/2022 8:49 AM CDT 02/28/2022 10:56 AM CDT Narcisa Kilgore MOTOR EXPRESS CLERK LAB BLOOD ORDERABLES Pilar l Result [facility] [place] [address] documented in this encounter Visit Diagnoses Diagnosis 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) Type 2 diabetes mellitus with hyperosmolarity 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, with long-term current use of insulin (HCC) Borwo-azmpko-uwbq disease (HCC) Other osteoporosis without current pathological fracture Vitamin D deficiency Screening for thyroid disorder documented in this encounter Care Teams Home Performance Laborer Relationship Specialty Start Date End Date Kirt Lindsay DO PCP - General Internal Medicine 02/02/21 Josué Del Valle MD PhD Medical Oncologist/Bead Wire Insulator Medical Oncology 08/26/19 Tay Charlton MD Consulting Physician Gastroenterology 12/03/21 06/11/23 Halie Khan MD [address] [place], [place] [id number] Consulting Physician Pulmonary Disease 12/12/21 3 Ant Starks MD [address] [place], [place] [id number] Consulting Physician Transplant Hepatology 01/12/22 documented as of this encounter
--- OUTSIDE RECORDS SUMMARY | 2024-11-22 10:56 | XMS_ITS | Encounter Summary ---
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 within last 720 hours. Potassium: No results found for requested labs within last 720 hours. CO2: No results found for requested labs within last 720 hours. Chloride: No results found for requested labs within last 720 hours. BUN: No results found for requested labs within last 720 hours. Creatinine: 12/12/2021: 0.9 mg/dL Lissa index score: 100 DOS Physical Exam Medical history, medications, and allergies reviewed. Attestation: This PAT evaluation 01/08/2022. Airway Exam: Mallampati: II Cervical ROM: FROM Cardiovascular Exam: Rate: regular Rhythm: regular Pulmonary Exam: LCTA, bilat EENT Exam: trachea midline Dental Exam: Edentulous Current state: Patient's current state is cooperative and interactive. Anesthesia Plan ASA 3 My patient is approved for the Anesthesia Controlled Medication protocol when under care of a MACHINE STEMMER Planned anesthesia: General Team communication plan: oral ET tube Induction: Induction: intravenous. Postoperative Plan: No plan for postoperative opioid use. No postoperative mechanical ventilation intended. Patient's planned disposition post procedure is Outpatient. Informed Consent: Discussed plan with MACHINE STEMMER. Anesthesia plan and risks discussed with patient. Consent and Attending signature: I and/or my designee have discussed the anesthesia plan, benefits, possible alternatives, parental presence at time of induction (if indicated), and clinically relevant risks that may include dental injury, unintentional awareness, and/or other complications. The patient and/or parent/legal guardian understand, and agree to proceed. All questions answered. ER INSERTING MACHINE ADJUSTER ER INSERTING MACHINE ADJUSTER ER INSERTING MACHINE ADJUSTER documented in this encounter Plan of Treatment Not on file documented as of this encounter Procedures Procedure Name Priority Date/Time Associated Diagnosis Comments W[place] AN PROCEDURE PLACEHOLDER Routine 01/12/2022 12:41 PM PRIMER INSERTING MACHINE ADJUSTER WY AN ELECTIVE ENDOTRACHEAL AIRWAY Routine 01/12/2022 12:41 PM PRIMER INSERTING MACHINE ADJUSTER documented in this encounter Results * WY AN ELECTIVE ENDOTRACHEAL AIRWAY, [place] AN PROCEDURE PLACEHOLDER (01/12/2022 12:41 PM PRIMER INSERTING MACHINE ADJUSTER) Narrative Bogdan Quinteros CRNA - 01/12/2022 12:41 PM PRIMER INSERTING MACHINE ADJUSTER Bogdan Quinteros CRNA ? 01/12/2022 ??1:18 PM Airway Patient location: OR Urgency: elective Date/time: 01/12/2022 12:41 PM Indications for airway management: anesthesia Difficult airway: no Staff: Supervising provider: Peter Crain MD Placed by: Other staff: Ramonita Elizondo Emergent airway documentation: Risks and benefits discussed: yes Consent obtained: yes Consent given by: patient Airway prep: Preoxygenated: yes Patient position: sniffing and reverse Trendelenburg MILS maintained throughout: yes Mask difficulty assessment: 0 - not attempted Spontaneous ventilation during airway: absent Sedation level during airway: GA Final airway details: Final airway type: endotracheal airway Tube type: ETT ETT size: 7.5 mm Cuffed: yes Technique used for successful ETT placement: video laryngoscopy Devices/Methods used in placement: intubating stylet Insertion site: oral Blade type: Dylan Video blade type: Gay Blade size: 4 Cormack-Lehane (video): grade I - full view of glottis Cuff inflated with: air ETT to gums: 24 cm Placement verified by: auscultation and CO2 detection Airway secured with: silk tape Number of attempts: 1 Additional comments: Atraumatic intubation x 1 attempt. RSI performed with head of bed elevated; no gastric contents noted in oropharynx. us Peter Crain MD ANESTHESIA ORDERABLES Final Result documented in this encounter Visit Diagnoses Not on filedocumented in this encounter Administered Medications Inactive Administered Medications - up to 3 most recent administrations Medication Order MAR Action Action Date Dose Rate Site ceFAZolin (ANCEF) 2,000 mg/20 mL in sterile water (premix) 2,000 mg 2,000 mg, intravenous, at 400 mL/hr, Administer over 3 Minutes, Once, On Sat01/12/22 at 1130, For 1 dose, Pre-Op, Administer within 60 minutes of incision., Indications: Prophylaxis, SurgicalIndications:Prophylaxis , Surgical Given 01/12/2022 12:45 PM PRIMER INSERTING MACHINE ADJUSTER 2,000 mg ePHEDrine injection intravenous, Administer over 5 Minutes, As needed, Starting on Sat01/12/22 at 1309, Anesthesia Intra-op Given 01/12/2022 1:09 PM PRIMER INSERTING MACHINE ADJUSTER 15 mg fentaNYL (SUBLIMAZE) preservative free injection intravenous, As needed, Starting on Sat01/12/22 at 1237, Anesthesia Intra-op Given 01/12/2022 2:43 PM PRIMER INSERTING MACHINE ADJUSTER 25 mcg Given 01/12/2022 1:22 PM PRIMER INSERTING MACHINE ADJUSTER 50 mcg Given 01/12/2022 12:37 PM PRIMER INSERTING MACHINE ADJUSTER 100 mcg glycopyrrolate (ROBINUL) injection intravenous, Administer over 1 Minutes, As needed, Starting on Sat01/12/22 at 1231, Anesthesia Intra-op Given 01/12/2022 2:15 PM PRIMER INSERTING MACHINE ADJUSTER 0.4 mg Given 01/12/2022 12:31 PM PRIMER INSERTING MACHINE ADJUSTER 0.2 mg insulin regular (HumuLIN R, NovoLIN R) 100 unit/mL injection intravenous, As needed, Starting on Sat01/12/22 at 1500, Anesthesia Intra-op Given 01/12/2022 3:00 PM PRIMER INSERTING MACHINE ADJUSTER 3 Units Lactated Ringer's (LR) infusion 30 mL/hr, intravenous, Continuous, Starting on Sat01/12/22 at 1130 Restarted 01/12/2022 12:21 PM PRIMER INSERTING MACHINE ADJUSTER New Bag 01/12/2022 11:35 AM PRIMER INSERTING MACHINE ADJUSTER 30 mL/hr 30 mL/hr lidocaine (cardiac) (XYLOCAINE) preservative free injection intravenous, As needed, Starting on Sat01/12/22 at 1240, Anesthesia Intra-op, Indications: Ventricular ArrhythmiasIndications:Ventricular Arrhythmias Given 01/12/2022 12:40 PM PRIMER INSERTING MACHINE ADJUSTER 60 mg midazolam (VERSED) 1 mg/mL preservative free injection intravenous, Administer over 2 Minutes, As needed, Starting on Sat01/12/22 at 1224, Anesthesia Intra-op Given 01/12/2022 12:24 PM PRIMER INSERTING MACHINE ADJUSTER 2 mg neostigmine injection intravenous, Administer over 3 Minutes, As needed, Starting on Sat01/12/22 at 1415, Anesthesia Intra-op Given 01/12/2022 2:15 PM PRIMER INSERTING MACHINE ADJUSTER 2 mg ondansetron (ZOFRAN) injection intravenous, Administer over 2 Minutes, As needed, Starting on Sat01/12/22 at 1415, Anesthesia Intra-op Given 01/12/2022 2:15 PM PRIMER INSERTING MACHINE ADJUSTER 4 mg phenylephrine (FRANKLYN-SYNEPHRINE) 1 mg/10 mL (100 mcg/mL) in sodium chloride 0.9% (premix) intravenous, As needed, Starting on Sat01/12/22 at 1251, Anesthesia Intra-op Given 01/12/2022 1:08 PM PRIMER INSERTING MACHINE ADJUSTER 200 mcg Given 01/12/2022 1:05 PM PRIMER INSERTING MACHINE ADJUSTER 200 mcg Given 01/12/2022 1:02 PM PRIMER INSERTING MACHINE ADJUSTER 200 mcg phenylephrine (FRANKLYN-SYNEPHRINE) 5 mg/50 mL (100 mcg/mL) in sodium chloride 0.9% (premix) intravenous, Continuous PRN, Starting on Sat01/12/22 at 1251, Anesthesia Intra-op Rate/Dose Change 01/12/2022 1:12 PM PRIMER INSERTING MACHINE ADJUSTER 0.7 mcg/kg/min 26.67 mL/hr Rate/Dose Change 01/12/2022 1:05 PM PRIMER INSERTING MACHINE ADJUSTER 1.2 mcg/kg/min 45. 72 mL/hr Rate/Dose Change 01/12/2022 1:02 PM PRIMER INSERTING MACHINE ADJUSTER 1 mcg/kg/min 38.1 mL/hr propofoL (DIPRIVAN) 10 mg/mL IV intravenous, As needed, Starting on Sat01/12/22 at 1240, Anesthesia Intra-op Given 01/12/2022 12:40 PM PRIMER INSERTING MACHINE ADJUSTER 120 mg rocuronium (ZEMURON) injection intravenous, As needed, Starting on Sat01/12/22 at 1255, Anesthesia Intra-op Given 01/12/2022 12:55 PM PRIMER INSERTING MACHINE ADJUSTER 30 mg sodium chloride 0.9% infusion intravenous, Continuous PRN, Starting on Sat01/12/22 at 1244, Anesthesia Intra-op New Bag 01/12/2022 12:44 PM PRIMER INSERTING MACHINE ADJUSTER succinylcholine (ANECTINE) injection intravenous, As needed, Starting on Sat01/12/22 at 1240, Anesthesia Intra-op Given 01/12/2022 12:40 PM PRIMER INSERTING MACHINE ADJUSTER 60 mg documented in this encounter Care Teams Milk Processing Worker Relationship Specialty Start Date End Date Kirt Lindsay DO PCP - General Internal Medicine 02/02/21 Josué Del Valle MD PhD Medical Oncologist/Outreach Director Medical Oncology 08/26/19 Tay Charlton MD Consulting Physician Gastroenterology 12/03/21 06/11/23 Halie Khan MD [address] [address] Consulting Physician Pulmonary Disease 12/12/21 3 Ant Starks MD [address] [address] Consulting Physician Transplant Hepatology 01/12/22 documented as of this encounter
--- OUTSIDE RECORDS SUMMARY | 2024-11-22 10:56 | XMS_ITS | Encounter Summary ---
Author Organization [facility] Address [address] [place] [address] Phone Care Team Providers Care Freight Traffic Consultant Name Role Phone Josué Del Valle MD PhD Unavailable Kirt Lindsay DO Primary Care Provider [phone] Tay Charlton MD Unavailable [phone] Halie Khan MD Unavailable [phone] StarksAnt goldman MD Unavailable [phone] Encounter Details Date Type Department Care Team (Late st Contact Info) Description 02/16/2022 Orders Only [facility] Bone Marrow Transplant [address] [facility] [address] Advanced Medicine 7th Floor, [place] [address] Josué Del Valle MD PhD [address] DIV IM BONE MARROW TRANSPLANT, [address] [place] [address] AML (acute myeloid leukemia) in [...] on file 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 Gender Identity Not on file Sexual Orientation Not on file documented as of this encounter Ordered Prescriptions Prescription Sig Dispense Quantity Refills Last Filled Start Date End Date albuterol HFA (PROVENTIL HFA,VENTOLIN HFA,PROAIR HFA) 90 mcg/actuation inhalerIndications :Chronic Obstructive Pulmonary Disease Inhale 2 puffs every 4 (four) hours as needed for wheezing 3 each 3 02/16/2022 2 documented in this encounter Plan of Treatment [...] 4 (four) hours as needed for wheezing Reorder 01/18/2022 02/16/2022 documented as of this encounter Care Teams Freight Traffic Consultant Relationship Specialty Start Date End Date Kirt Lindsay DO PCP - General Internal Medicine 02/02/21 Josué Del Valle MD PhD Medical Oncologist/Solid Waste Technician Medical Oncology 08/26/19 Tay Charlton MD Consulting Physician Gastroenterology 12/03/21 06/11/23 Halie Khan MD [address] [place] [address] Consulting Physician Pulmonary Disease 12/12/21 3 Ant Starks MD [address] [facility] [address] [facility] [address] [place] [address] Consulting Physician Transplant Hepatology 01/12/22 documented as of this encounter
--- OUTSIDE RECORDS SUMMARY | 2024-11-22 10:56 | XMS_ITS | Encounter Summary ---
Author Organization [facility] Address [address] [place] [address] Phone Care Team Providers Care Poultry Pathologist Name Role Phone Josué Del Valle MD PhD Unavailable [phone] Kirt Lindsay DO Primary Care Provider [phone] Tay Charlton MD Unavailable [phone] Halie Khan MD Unavailable [phone] StarksAnt goldman MD Unavailable [phone] Encounter Details Date Type Department Care Team (Late st Contact Info) Description 02/15/2022 Telephone [facility] Bone Marrow Transplant [facility] Advanced Medicine 7th Floor, [place] [address] Anaid Polanco RN Social History [...] on file 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 Contact (call, mychart message, [id number]): completed Discharge Planning Review ??? Care Coordination Note Reviewed: Yes ??? New equipment: No ??? New Treatment: No. ??? Patient received growth factor? No growth factor ordered. ??? Appointments reviewed with patient. Next return office visit eligible for TCV: Yes ??? Issues with: o Side Effects? no complaints o Discharge Planning? Yes, details: Patient's ride canceled picking him up d/t being discharged after 5pm. Was going to be discharged earlier in the day but delayed for elevated blood glucose and needed to be observed after insulin administration. Stayed the night and discharged the following day. o Financial toxicity? Denies - (If yes, obtain household size and income information) Medication Review: There are no changes. Changes include: Started Prednisone and Levaquin. ??? Received all discharge medications: Yes ??? Patient has antiemetics available? Yes: Zofran. ??? Is the patient on a research study with a research oral medication? 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 He stated he will call back if he needs ride assistance. He stated he is working with his sweeper driver, brine tank operator, miniature set builder, and PCP. He has the means to monitor glucose at home. documented in this encounter Plan of Treatment Not on file documented as of this encounter Visit Diagnoses Not on filedocumented in this encounter Care Teams Poultry Pathologist Relationship Specialty Start Date End Date Kirt Lindsay DO PCP - General Internal Medicine 02/02/21 Josué Del Valle MD PhD Medical Oncologist/Drawing Frame Tender Medical Oncology 08/26/19 Tay Charlton MD Consulting Physician Gastroenterology 12/03/21 06/11/23 Halie Khan MD [address] [facility] [address] [place] [address] Consulting Physician Pulmonary Disease 12/12/21 3 Ant Starks MD [address] [facility] [address] [place], [place] [id number] Consulting Physician Transplant Hepatology 01/12/22 documented as of this encounter
--- OUTSIDE RECORDS SUMMARY | 2024-11-22 10:56 | XMS_ITS | Encounter Summary ---
Author Organization [facility] Address [address] [place] [address] Care Team Providers Care Auto Care Center Manager Name Role Phone Josué Del Valle MD PhD Unavailable [phone] Kirt Lindsay DO Primary Care Provider [phone] Tay Charlton MD Unavailable [phone] Halie Khan MD Unavailable [phone] StarksAnt goldman MD Unavailable [phone] Encounter Details Date Type Department Care Team (Latest Contact Info) Description 02/11/2022 8:23 PM CDT - 02/11/2022 10:49 PM CDT Hospital Encounter [facility] Radiology [address] [place] [address] Discharge Disposition: Discharge to home or self [...] on file 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 Gender Identity Not on file Sexual [...] tabletIndications:AML (acute myeloid leukemia) in remission ([facility]) TAKE 1 TABLET(400 MG) BY MOUTH EVERY 8 HOURS 270 tablet 1 2 06/11/20 22 albuterol HFA (PROVENTIL HFA,VENTOLIN HFA,PROAIR HFA) 90 mcg/actuation inhalerIndications:Chron ic Obstructive Pulmonary Disease Inhale 2 puffs every 4 (four) hours as needed for wheezing 3 each 3 2 02/17/20 22 atorvastatin (LIPITOR) 40 mg tabletIndications:AML (acute myeloid leukemia) in remission ([facility]),Type 2 diabetes mellitus with hyperglycemia, with long-term current use of insulin ([facility]),Hpjgz-qsohur-jsjc disease ([facility]),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[facility]),Pure hypercholesterolemia Take 1 tablet (40 mg total) by mouth daily 30 tablet 6 0 07/30/20 24 blood-glucose meter miscIndications:Type 2 diabetes mellitus with hyperosmolarity 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, with long-term current use of insulin ([facility]) 1 Device 3 (three) times [...] capsuleIndications:AML (acute myeloid leukemia) in remission ([facility]),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[facility]),Vitamin D deficiency TAKE 1 CAPSULE BY MOUTH ONCE A WEEK DIRECTED 12 capsule 3 1 02/20/20 24 furosemide (LASIX) 20 mg tabletIndications:Type 2 diabetes mellitus with hyperosmolarity 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, with long-term current use of insulin ([facility]) Take 1 tablet (20 mg total) by mouth daily As needed. 30 tablet 0 02/20/20 24 gabapentin (NEURONTIN) 300 mg capsuleIndications:Type 2 diabetes mellitus with hyperosmolarity 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, with long-term current use of insulin ([facility]) Take 1 capsule (300 mg total) by mouth 4 (four) times a day 120 capsule 3 2 02/15/20 22 gabapentin (NEURONTIN) 300 mg capsule Take 1 capsule (300 mg total) by mouth 3 (three) times a day 90 capsule 1 2 04/09/20 22 insulin glargine (LANTUS, BASAGLAR) 100 unit/mL (3 mL) pen for injectionIndications:Typ e 2 diabetes mellitus with hyperosmolarity 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, with long-term current use of insulin ([facility]) INJECT 15 UNITS NIGHTLY SUB-Q. 1 pen 5 1 02/20/20 24 insulin lispro (HumaLOG, ADMELOG) 100 unit/mL pen for injectionIndications:Typ e 2 diabetes mellitus with hyperosmolarity 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, with long-term current use of insulin ([facility]) INJECT 5-10 UNITS TID WITH MEALS PLUS SLIDING SCALE. TDD OF 35 UNITS. 10 pen 6 1 02/20/20 24 levoFLOXacin (LEVAQUIN) 750 mg tabletIndications:Pneumo tanya, Community Acquired Take 1 tablet (750 mg total) by mouth daily for 8 days 8 tablet 2 02/14/20 22 levoFLOXacin (LEVAQUIN) 750 mg tabletIndications:Pneumo tanya, Community Acquired Take 1 tablet (750 mg total) by mouth daily for 8 days 8 tablet 2 02/29/20 22 montelukast (SINGULAIR) 10 mg tabletIndications: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),Dwybp-rrfekx-uasw disease (HCC) TAKE 1 TABLET BY MOUTH EVERY DAY 90 tablet 2 03/26/20 22 mycophenolate mofetil (CELLCEPT) 500 mg tabletIndications: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),Iuumc-bkieez-pjkt disease (HCC) TAKE 2 TABLETS(1000 MG) BY MOUTH TWICE DAILY 180 tablet 3 1 04/11/20 22 ofloxacin (OCUFLOX) 0.3 % ophthalmic solution Administer 1 drop into the left eye 4 (four) times a day 5 mL 11 1 02/15/20 22 ondansetron ODT (ZOFRAN-ODT) 4 mg disintegrating tabletIndications:Preven tion of Post-Operative Nausea and Vomiting Take 1 tablet (4 mg total) by mouth every 8 (eight) hours as needed for nausea or vomiting 20 tablet 2 02/20/[address] (PROTONIX) 40 mg EC tablet Take 1 tablet (40 mg total) by mouth daily 30 tablet 1 02/29/20 22 predniSONE (DELTASONE) 20 mg tablet Take 2 tablets (40 mg) by mouth daily for 3 doses 6 tablet 2 02/14/20 22 predniSONE (DELTASONE) 20 mg tablet Take 2 tablets (40 mg) by mouth daily for 3 doses 6 tablet 2 02/29/20 22 rivaroxaban (Xarelto) 20 mg tabletIndications: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) Take 1 tablet (20 mg total) by mouth daily 30 tablet 1 2 05/14/20 23 sucralfate (CARAFATE) 1 gram tablet Take 1 tablet (1 g total) by mouth 2 (two) times a day for 10 days 20 tablet 1 02/15/20 22 tacrolimus (PROGRAF) 0.5 mg immediate-release capsuleIndications: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) Take 1 every other day 15 capsule 3 2 06/06/20 22 traMADoL (ULTRAM) 50 mg tablet Take 1 tablet (50 mg total) by mouth every 6 (six) hours 10 tablet 2 02/20/20 24 Trelegy Ellipta 100-62.5-25 mcg inhalerIndications: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),Npwli-jrilft-tvth disease (HCC),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HCC) INHALE 1 PUFF BY MOUTH DAILY 60 each 3 1 02/14/20 22 Trelegy Ellipta 100-62.5-25 mcg inhalerIndications:Bronc hospasm Prevention with COPD Inhale 1 puff daily 30 each 1 2 02/14/20 22 Trelegy Ellipta 100-62.5-25 mcg inhalerIndications:Bronc hospasm Prevention [...] Procedure Name Priority Date/Time Associated Diagnosis Comments XR CHEST PA LATERAL 2 VIEWS ED 02/11/2022 8:29 PM CDT documented in this encounter Results * XR Chest Pa Lateral 2 Views (02/11/2022 8:29 PM CDT) Anatomical Region Laterality Modality Body, Chest N/A Computed Radiogr aphy 02/11/2022 8:48 PM CDT Impressions 02/11/2022 8:57 PM CDT FINDINGS/IMPRESSION: Frontal and lateral views of the chest are provided for interpretation. Cardiac silhouette and mediastinal contours are stable. Lungs are hyperexpanded with severe diffuse centrilobular emphysema. There is unchanged right middle lobe atelectasis and scarring. Remainder of the lungs are clear with no focal consolidation or edema. No pleural effusion or pneumothorax. Dictated by: Jose M Cueto M.D. The radiology attending physician has personally reviewed this study, and had reviewed and/or edited this written report and agrees with it. Electronically signed by: Bladimir Vega III, M.D. Narrative 02/11/2022 8:57 PM CDT EXAMINATION: XR CHEST PA LATERAL 2 VIEWS HISTORY: Chest pain and productive cough. COMPARISON: Chest radiograph 09/07/2021, CT chest 09/07/2021 Procedure Note Bladimir Vega III, MD - 02/11/2022 EXAMINATION: XR CHEST PA LATERAL 2 VIEWS HISTORY: Chest pain and productive cough. COMPARISON: Chest radiograph 09/07/2021, CT chest 09/07/2021 IMPRESSION: FINDINGS/IMPRESSION: Frontal and lateral views of the chest are provided for interpretation. Cardiac silhouette and mediastinal contours are stable. Lungs are hyperexpanded with severe diffuse centrilobular emphysema. There is unchanged right middle lobe atelectasis and scarring. Remainder of the lungs are clear with no focal consolidation or edema. No pleural effusion or pneumothorax. Dictated by: Jose M Cueto M.D. The radiology attending physician has personally reviewed this study, and had reviewed and/or edited this written report and agrees with it. Electronically signed by: Bladimir Vega III, M.D. Uyen Gleason MD IMG XR PROCEDURES Final Result documented in this encounter Visit Diagnoses Not on filedocumented in this encounter Care Teams Auto Care Center Manager Relationship Specialty Start Date End Date Kirt Lindsay DO PCP - General Internal Medicine 02/02/21 Josué Del Valle MD PhD Medical Oncologist/Motion Picture Film Examiner Medical Oncology 08/26/19 Tay Charlton MD Consulting Physician Gastroenterology 12/03/21 06/11/23 Halie Khan MD [address] [address] Consulting Physician Pulmonary Disease 12/12/21 3 Ant Starks MD [address] [address] Consulting Physician Transplant Hepatology 01/12/22 documented as of this encounter
--- OUTSIDE RECORDS SUMMARY | 2024-11-22 10:56 | XMS_ITS | Encounter Summary ---
Author Organization [facility] Address [address] [place] [address] Phone Care Team Providers Care Irrigation Engineer Name Role Phone Josué Del Valle MD PhD Unavailable [phone] Kirt Lindsay DO Primary Care Provider [phone] Tay Charlton MD Unavailable [phone] Halie Khan MD Unavailable [phone] StarksAnt goldman MD Unavailable [phone] Encounter Details Date Type Department Care Team (Late st Contact Info) Description 02/15/2022 Telephone [facility] Bone Marrow Transplant [facility] Advanced Medicine 7th Floor, [place] [address] Anaid Polanco RN Social History [...] on file 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 Contact (call, Bambisahart message, [email or web address]): attempted.LVM for patient to call back. documented in this encounter Plan of Treatment Not on file documented as of this encounter Visit Diagnoses Not on filedocumented in this encounter Care Teams Irrigation Engineer Relationship Specialty Start Date End Date Kirt Lindsay DO PCP - General Internal Medicine 02/02/21 Josué Del Valle MD PhD Medical Oncologist/Maintenance Shop Laborer Medical Oncology 08/26/19 Tay Charlton MD Consulting Physician Gastroenterology 12/03/21 06/11/23 Halie Khan MD [address] [address] Consulting Physician Pulmonary Disease 12/12/21 3 Ant Starks MD [address] [address] Consulting Physician Transplant Hepatology 01/12/22 documented as of this encounter
--- OUTSIDE RECORDS SUMMARY | 2024-11-22 10:56 | XMS_ITS | Encounter Summary ---
Author Organization [facility] Address [address] [place] [address] Phone Care Team Providers Care New Home Sales Consultant Name Role Phone Josué Del Valle MD PhD Unavailable [phone] Kirt Lindsay DO Primary Care Provider [phone] Tay Charlton MD Unavailable [phone] Halie Khan MD Unavailable [phone] Ant Starks MD Unavailable [phone] Encounter Details Date Type Department Care Team (Late st Contact Info) Description 01/18/2022 Orders Only [facility] Bone Marrow Transplant [address] [facility] Advanced Medicine 7th Floor, [place] [address] Silva Mortensen RMA AML (acute [...] on file Legal 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 Gender Identity Not on file Sexual Orientation Not on file documented as of this encounter Ordered Prescriptions Prescription Sig Dispense Quantity Refills Last Filled Start Date End Date albuterol HFA (PROVENTIL HFA,VENTOLIN HFA,PROAIR HFA) 90 mcg/actuation inhalerIndications :Chronic Obstructive Pulmonary Disease Inhale 2 puffs every 4 (four) hours as needed for wheezing 3 each 3 01/18/2022 2 documented in this encounter Plan of Treatment Not on file documented as of this encounter Visit Diagnoses Diagnosis 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) documented in this encounter Discontinued Medications Medication Sig Discontinue Reason Start Date End Da te albuterol HFA (PROVENTIL HFA,VENTOLIN HFA,PROAIR HFA) 90 mcg/actuation inhalerIndications: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) Inhale 2 puffs every 4 (four) hours as needed for wheezing Reorder 11/15/2021 01/18/2022 documented as of this encounter Care Teams New Home Sales Consultant Relationship Specialty Start Date End Date Kirt Lindsay DO PCP - General Internal Medicine 02/02/21 Josué Del Valle MD PhD Medical Oncologist/Dry Transfer Man Medical Oncology 08/26/19 Tay Charlton MD Consulting Physician Gastroenterology 12/03/21 06/11/23 Halie Khan MD [address] [address] Consulting Physician Pulmonary Disease 12/12/21 3 Ant Starks MD [address] [facility] [address] [place] [address] Consulting Physician Transplant Hepatology 01/12/22 documented as of this encounter
--- OUTSIDE RECORDS SUMMARY | 2024-11-22 10:56 | XMS_ITS | Encounter Summary ---
Author Organization [facility] Address [address] [place] [address] Care Team Providers Care Redevelopment Manager Name Role Phone Josué Del Valle MD PhD Unavailable [phone] Kirt Lindsay DO Primary Care Provider [phone] Tay Charlton MD Unavailable [phone] Halie Khan MD Unavailable [phone] StarksAnt goldman MD Unavailable [phone] Reason for Visit * Reason Comments Shortness of Breath Encounter Details Date Type Department Care Team (Latest Contact Info) Description 02/11/2022 10:50 PM CDT - 02/14/2022 9:06 PM CDT Hospital Encounter [facility] [address] [place] [address] Uyen Gleason MD [address] [place] [address] Josué Del Valle MD PhD [address] IM BONE MARROW TRANSPLANT, [address] [place] [address] COPD exacerbation ([facility]) ([facility]) (Primary Dx); Hemoptysis; Shortness of breath; Pneumonia due to infectious organism, unspecified laterality, unspecified part of lung; Type 2 diabetes mellitus with hyperosmolarity 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, with long-term current use of insulin ([facility]) ([facility]); AML (acute myeloid leukemia) in remission (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 Gender Identity Not on file Sexual Orientation Not on file documented as of this encounter Last Filed Vital Signs Vital Sign Reading Time Taken Comments Blood Pressure 150/90 02/14/2022 7:55 PM CDT Pulse 93 02/14/2022 7:55 PM CDT Temperature 36.8 ??C (98.24 ??F) 02/14/2022 7:55 PM C DT Respiratory Rate 22 02/14/2022 7:55 PM CDT Oxygen Saturation 93% 02/14/2022 7:55 PM CDT Inhaled Oxygen Concentration - - Weight 65.8 kg (145 lb) 02/14/2022 7:55 PM CDT Height 177.8 cm (5' 10 ) 02/12/2022 6:15 AM CDT Body Mass Index 20.81 02/12/2022 6:15 AM CDT documented in this encounter Discharge Diagnoses Diagnosis Chronic obstructive pulmonary disease with (acute) exacerbation (HCC) - CHRONIC OBSTRUCTIVE PULMONARY DISEASE WITH (ACUTE) EXACERBATION Pneumonia due to other gram-negative bacteria (HCC) - PNEUMONIA DUE TO OTHER GRAM-NEGATIVE BACTERIA Pneumonia due to other gram-negative bacteria Immunodeficiency, unspecified (HCC) - IMMUNODEFICIENCY, UNSPECIFIED Bdqfa-ewdssp-nlpu disease, unspecified (HCC) - ZWYHQ-MUUZYG-PVHP DISEASE, UNSPECIFIED Cczoi-mrcnpz-ptml disease, unspecified Acute myeloblastic leukemia, not having achieved remission (HCC) - ACUTE MYELOBLASTIC LEUKEMIA, NOT HAVING ACHIEVED REMISSION Complications of stem cell transplant (HCC) - COMPLICATIONS OF STEM CELL TRANSPLANT Type 2 diabetes mellitus with diabetic polyneuropathy (HCC) - TYPE 2 DIABETES MELLITUS WITH DIABETIC POLYNEUROPATHY Type 2 diabetes mellitus with hyperglycemia (CMS/HCC) (HCC) - TYPE 2 DIABETES MELLITUS WITH HYPERGLYCEMIA Heart failure, unspecified (CMS/HCC) (HCC) - HEART FAILURE, UNSPECIFIED Heart failure, unspecified Chronic obstructive pulmonary disease with (acute) lower respiratory infection (HCC) - CHRONIC OBSTRUCTIVE PULMONARY DISEASE WITH (ACUTE) LOWER RESPIRATORY INFECTION Adverse effect of glucocorticoids and synthetic analogues, initial encounter - ADVERSE EFFECT OF GLUCOCORTICOIDS AND SYNTHETIC ANALOGUES, INITIAL ENCOUNTER Pure hypercholesterolemia, unspecified - PURE HYPERCHOLESTEROLEMIA, UNSPECIFIED Hyperlipidemia, unspecified - HYPERLIPIDEMIA, UNSPECIFIED Nicotine dependence, cigarettes, uncomplicated - NICOTINE DEPENDENCE, CIGARETTES, UNCOMPLICATED Surgical operation with transplant of whole organ as the cause of abnormal reaction of the patient, or of later complication, without mention of misadventure at the time of the procedure - SURGICAL OPERATION WITH TRANSPLANT OF WHOLE ORGAN THE CAUSE OF ABNORMAL REACTION OF THE PATIENT, terminal operator (current) use of 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 - 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 (CURRENT) USE OF ANTICOAGULANTS Long-term (current) use of 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 (HCC) - SNF (CURRENT) USE OF INSULIN Dependence on supplemental oxygen - DEPENDENCE ON SUPPLEMENTAL OXYGEN terminal operator (current) use of systemic steroids - SNF (CURRENT) USE OF SYSTEMIC STEROIDS Personal history of pulmonary embolism - PERSONAL HISTORY OF PULMONARY EMBOLISM Personal history of other venous thrombosis and embolism - PERSONAL HISTORY OF OTHER VENOUS THROMBOSIS AND EMBOLISM Solitary pulmonary nodule - SOLITARY PULMONARY NODULE documented in this encounter Discharge Summaries * Michael Perrin MD - 02/14/2022 2:27 PM CDT Inpatient Discharge Summary BRIEF OVERVIEW Admitting Provider: Josué Del Valle MD PhD Discharge Provider: Uyen Gleason MD Primary Care Physician at Discharge: Kirt Lindsay DO [phone] Admission Date: 02/11/2022 Discharge Date: 02/14/2022 Admission Location: [facility] Problems/Diagnoses: Principal Problem: COPD exacerbation (CMS/HCC) ([facility]) Active Problems: Qwpfk-mdthzq-ylon disease (HCC) 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[facility]) Type 2 diabetes mellitus (HCC) Pure hypercholesterolemia COPD with exacerbation ([facility]/HCC) ([facility]) DVT (deep venous thrombosis) ([facility]/HCC) ([facility]) Peripheral neuropathy CAP (community acquired pneumonia) Resolved Problems: No resolved hospital problems. 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 As per the pt his symptoms started yesterday night where he felt he cant breath. He tried his rescue inhaler but his shortness of breath did not resolve. He also reported to have brownish colored septum and excessive coughing. No recent exposure to sick contacts or anyone sick at home.??Patient has been having to increase his oxygen that he wears, as he is usually on 1 L but is now on 5 at night due to shortness of breath. ?? Pt lives in a mobile house with his partner Lissy and her 3 kids, Lissy helps him with his medications and with activities of daily living ?? Pt deny headache, fever, nausea, vomiting, diarrhea, abdominal pain, urinary symptoms or any recentexposure to sick contacts.? Hospital Course: COPD with exacerbation ([facility]) ([facility]) Admitted for COPD exacerbation. He uses 3-5 L of oxygen at home at night and on exertion. CT chest showed No acute pulmonary embolism but ground glass opacification in the right upper lobe and tree-in-bud nodularity is noted in the bilateral lungs which are favored to be infectious or inflammatory in etiology. Started on Ceftriaxone and Azithromycin and switched to Levofloxacin on discharge to complete 10 days of ABX. Received prednisone as inpatient and discharge on Pred 40 mg daily to complete 5 days. He was previously out of his Trelegy Ellipta, which was refilled. He underwent home O2 eval on day of discharge and was back to his home O2 requirements. Patient clinically improved back to baseline prior to discharge. New indeterminate subcentimeter right middle lobe nodule on CT With stable prominent right supraclavicular lymph nodes. DDx includes malignancy so will need repeat CT short term. Pure hypercholesterolemia - continue home dose atorvastatin 40 mg PO daily Type 2 diabetes mellitus (HCC) - Lantus 15 units and Sliding scale for diabetic control. Discharge was delayed by one day given severe steroid-induced hyperglycemia with BG 504. He received IV regular, his Lantus was increased from 10U to 15U and his SSI was changed to high dose. His BG was then better controlled and he was stable for discharge on 02/14. DVT (deep venous thrombosis) (CMS/HCC) (HCC) - History of DVT 2012, 2017, PE in 2012. He takes Xaralto at home - Continue to take Xaralto 20 mg Po daily. 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HCC) - hx of Stem cell transplant in [address] 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 Currently takes tacrolimus 0.5 mg every 48 hours and Cellcept 1000 mg BID. - tacrolimus levels random ordered. Last dose received was 02/10. Patient also takes acyclovir and voriconazole for medical ppx Qgcis-pdbmcr-qhmt disease (HCC) - Continue home dose tacrolimus and Cellcept. - Follow tarco level random Peripheral neuropathy - Continue home dose gabapentin 300 mg TID Active Issues Requiring Follow-up: Test Results Pending at Discharge: Operative Procedures Performed: Other Procedures: Pertinent Test Results: Discharge Details Physical Exam at Discharge: Discharge Condition: good Pulse: 83 Resp: 20 BP: 156/74 Temp: 36.4 ??C (97.52 ??F) Weight: 63.5 kg (140 lb) Pertinent Exam Findings at Discharge: mild wheezing, but breathing comfortably and able to speak long sentences. Discharge Disposition: Code Status at Discharge: Full Code Discharge Instructions: Discharge Medications: Current Medications TAKE these medications acetaminophen 500 mg tablet Take 2 tablets (1,000 mg total) by mouth every 6 (six) hours as needed for pain Commonly known as: TYLENOL acyclovir 400 mg tablet TAKE 1 TABLET(400 MG) BY MOUTH EVERY 8 HOURS Commonly known as: ZOVIRAX albuterol HFA 90 mcg/actuation inhaler Inhale 2 puffs every 4 (four) hours as needed for wheezing For: chronic obstructive pulmonary disease Commonly known as: PROVENTIL HFA,VENTOLIN HFA,PROAIR HFA atorvastatin 40 mg tablet Take 1 tablet (40 mg total) by mouth daily Commonly known as: LIPITOR blood-glucose meter misc 1 Device 3 (three) times a day calcium carbonate 500 mg (215 mg elemental) tablet,chewable Take 10,000 mg by mouth 2 (two) times a day as needed For: heartburn Commonly known as: TUMS cholecalciferol 2000 unit capsule Take 2,000 Units by mouth every morning For: low vitamin D levels Commonly known as: VITAMIN D-3 docusate sodium 100 mg capsule Take 1 capsule (100 mg total) by mouth 2 (two) times a day with a glass of water For: constipation Commonly known as: COLACE ergocalciferol 50,000 unit capsule TAKE 1 CAPSULE BY MOUTH ONCE A WEEK DIRECTED Commonly known as: VITAMIN D furosemide 20 mg tablet Take 1 tablet (20 mg total) by mouth daily As needed. Commonly known as: LASIX gabapentin 300 mg capsule Take 1 capsule (300 mg total) by mouth 3 (three) times a day Commonly known as: NEURONTIN insulin glargine 100 unit/mL (3 mL) pen for injection INJECT 15 UNITS NIGHTLY SUB-Q. Commonly known as: LANTUS, BASAGLAR, SEMGLEE insulin lispro 100 unit/mL pen for injection INJECT 5-10 UNITS TID WITH MEALS PLUS SLIDING SCALE. TDD OF 35 UNITS. Commonly known as: HumaLOG, ADMELOG levoFLOXacin 750 mg tablet Take 1 tablet (750 mg total) by mouth daily for 8 days For: Pneumonia, Community Acquired Commonly known as: LEVAQUIN montelukast 10 mg tablet TAKE 1 TABLET BY MOUTH EVERY DAY Commonly known as: SINGULAIR mycophenolate mofetil 500 mg tablet TAKE 2 TABLETS(1000 MG) BY MOUTH TWICE DAILY Commonly known as: CELLCEPT omega-3 fatty acids 1 gram capsule Take 1 g by mouth 2 (two) times a day For: high amount of triglyceride in the blood Commonly known as: LOVAZA ondansetron ODT 4 mg disintegrating tablet Take 1 tablet (4 mg total) by mouth every 8 (eight) hours as needed for nausea or vomiting For: prevent nausea and vomiting after surgery Commonly known as: ZOFRAN-ODT oxygen Administer 2 L/min into each nostril nightly Nightly and PRN For: trouble breathing pantoprazole DR 40 mg EC tablet Take 1 tablet (40 mg total) by mouth daily Commonly known as: PROTONIX predniSONE 20 mg tablet Take 2 tablets (40 mg) by mouth daily for 3 doses Commonly known as: DELTASONE rivaroxaban 20 mg tablet Take 1 tablet (20 mg total) by mouth daily Commonly known as: Xarelto tacrolimus 0.5 mg immediate-release capsule Take 1 every other day Commonly known as: PROGRAF traMADoL 50 mg tablet Take 1 tablet (50 mg total) by mouth every 6 (six) hours Commonly known as: ULTRAM Trelegy Ellipta 100-62.5-25 mcg inhaler Inhale 1 puff daily For: bronchospasm prevention with COPD Generic drug: oiorwcbklkx-vajmqityf-iifeagge voriCONAZOLE 200 mg tablet Take 1 tablet (200 mg total) by mouth 2 (two) times a day For: stem Cell Transplant Commonly known as: VFEND Outpatient Follow-Up: Future Appointments Date Time Provider Department Center 02/28/2022 8:15 AM LAB, [facility] ONC ONC LAB [facility] 02/28/2022 9:20 AM Narcisa Kilgore, [facility] BMT CAM 7 BMT documented in this encounter Medications at Time [...] (acute myeloid leukemia) in remission ([facility]),Type 2 diabetes mellitus with hyperglycemia, with long-term current use of insulin ([facility]),Btshx-njsicq-wluz disease ([facility]),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[facility]),Pure hypercholesterolemia Take 1 tablet (40 mg total) by mouth daily 30 tablet 6 0 07/30/20 24 blood-glucose meter miscIndications:Type 2 diabetes mellitus with hyperosmolarity 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, with long-term current use of insulin ([facility]) 1 Device 3 (three) times a day [...] (acute myeloid leukemia) in remission ([facility]),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[facility]),Vitamin D deficiency TAKE 1 CAPSULE BY MOUTH ONCE A WEEK DIRECTED 12 capsule 3 1 02/20/20 24 furosemide (LASIX) 20 mg tabletIndications:Type 2 diabetes mellitus with hyperosmolarity 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, with long-term current use of insulin ([facility]) Take 1 tablet (20 mg total) by [...] long-term current use of insulin ([facility]) INJECT 15 UNITS NIGHTLY SUB-Q. 1 pen 5 1 02/20/20 24 insulin lispro (HumaLOG, ADMELOG) 100 unit/mL pen for injectionIndications:Typ e 2 diabetes mellitus with hyperosmolarity 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, with long-term current use of insulin ([facility]) INJECT 5-10 UNITS TID WITH MEALS PLUS SLIDING SCALE. TDD OF 35 UNITS. 10 pen 6 1 02/20/20 24 levoFLOXacin (LEVAQUIN) 750 mg tabletIndications:Pneumo tanya, Community Acquired Take 1 tablet (750 mg total) by mouth daily for 8 days 8 tablet 2 02/29/20 22 montelukast (SINGULAIR) 10 mg tabletIndications: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),Raint-kqbogn-mhtl disease (HCC) TAKE 1 TABLET BY MOUTH EVERY DAY 90 tablet 2 03/26/20 22 mycophenolate mofetil (CELLCEPT) 500 mg tabletIndications: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),Vlqvp-zpxwxy-rnia disease (HCC) TAKE 2 TABLETS(1000 MG) BY [...] 05/28/20 22 documented as of this encounter Ordered Prescriptions Prescription Sig Dispense Quantity Refills Last Filled Start Date End Date Trelegy Ellipta 100-62.5-25 mcg inhalerIndications :Bronchospasm Prevention with COPD Inhale 1 puff daily 30 each 1 02/13/2022 2 predniSONE (DELTASONE) 20 mg tablet Take 2 tablets (40 mg) by mouth daily for 3 doses 6 tablet 02/14/2022 2 levoFLOXacin (LEVAQUIN) 750 mg tabletIndications: Pneumonia, Community Acquired Take 1 tablet (750 mg total) by mouth daily for 8 days 8 tablet 02/13/2022 2 Trelegy Ellipta 100-62.5-25 mcg inhalerIndications :Bronchospasm Prevention with COPD Inhale 1 puff daily 30 each 1 02/13/2022 2 predniSONE (DELTASONE) 20 mg tablet Take 2 tablets (40 mg) by mouth daily for 3 doses 6 tablet 02/14/2022 2 levoFLOXacin (LEVAQUIN) 750 mg tabletIndications: Pneumonia, Community Acquired Take 1 tablet (750 mg total) by mouth daily for 8 days 8 tablet 02/13/2022 2 gabapentin (NEURONTIN) 300 mg capsule Take 1 capsule (300 mg total) by mouth 3 (three) times a day 90 capsule 1 02/13/2022 2 documented in this encounter Discharge Disposition Disposition Code Departure Means Destination Discharge to home or self care documented in this encounter Progress Notes * Wes Silva MD - 02/14/2022 12:58 PM CDT BMT Progress Note Active Treatment Plans for [facility] Chemotherapy Treatment: [id number] - RSH - Heme/BMT - INCB 901795 - EAP Ruxolitinib for GVHD (On Hold) Current day: Day 1, Cycle 3 and 4 (Planned for 01/25/2020) Following planned day: Day 1, Cycle 5-6 (Planned for 03/21/2020) Subjective Patient is a 56 y.o. male with chief complaint of shortness of breath. Interval Hx: Breathing more comfortably, but sugars very poorly controlled on steroids. ROS: Review of systems per HPI and otherwise all systems are negative Objective Vitals: Temp: [36.4 ??C (97.52 ??F)-36.8 ??C (98.24 ??F)] 36.5 ??C (97.7 ??F) Pulse: [66-101] 66 Resp: [20-22] 20 BP: (131-170)/(77-87) 160/83 Physical Exam General: A, A, O x3, NAD Mouth/Throat: Oropharynx is clear and moist. Neck: supple. Cardiovascular: Normal rate, regular rhythm and normal heart sounds, no murmurs Pulmonary/Chest: mild wheeze bilaterally Abdominal: Soft, non-tender, non-distended. Bowel sounds normal. Extremities: No edema, good pulses Neurological: no focal deficits Skin: No rash noted. No erythema. Lab/Radiology/Diagnostic Review: I have reviewed the following labs: CBC: Recent Labs Lab Units 02/14/22 0231 WBC K/cumm 20.0* HEMOGLOBIN g/dL 10.4* HEMATOCRIT % 29.5* MCV fL 97.7* MCH pg 34.4* MCHC g/dL 35.3 RDW CV % 13.6 RDWSD fL 48.1 MPV fL 10.2 NEUTROS ABS K/cumm 17.9* CMP: Recent Labs Lab Units 02/14/22 0754 02/14/22 0231 02/12/22 0848 02/12/22 0642 SODIUM mmol/L -- 141 < > 134* POTASSIUM PLASMA mmol/L -- 4.4 < > 4.7 CO2 mmol/L -- 29 < > 24 BUN SERUM mg/dL -- 27* < > 10 GLUCOSE mg/dL -- 222* < > 257* POC GLUCOSE MONITOR mg/dL 251* -- < > -- CREATININE mg/dL -- 0.75* < > 0.70* CALCIUM mg/dL -- 8.7 < > 9.1 CHLORIDE mmol/L -- 101 < > 96* ALBUMIN g/dL -- -- -- 3.5 AST Units/L -- -- -- 41 ALT Units/L -- -- -- 32 ALK PHOS Units/L -- -- -- 288* BILIRUBIN TOTAL mg/dL -- -- -- 0.4 TOTAL PROTEIN g/dL -- -- -- 8.0 ANIONGAP mmol/L -- 11 < > 14 < > = values in this interval not displayed. LDH: Recent Labs Lab Units 02/13/22 0047 LACTATE DEHYDROGENASE (LDH) Units/L 376* Uric Acid: Recent Labs Lab Units 02/13/22 0047 URIC ACID mg/dL 5.2 Tacrolimus level: Recent Labs Lab Units 02/12/22 0901 02/12/22 0642 TACROLIMUS RANDOM ng/mL -- 1.2 TACROLIMUS TROUGH ng/mL 1.0 -- Sirolimus level: Cyclosporine level: Medication Levels: Recent Labs Lab Units 02/12/22 0901 TACROLIMUS TROUGH ng/mL 1.0 VORICONAZOLE mcg/mL <0.1* Assessment /Plan COPD with exacerbation ([facility]) ([facility]) Patient is being admitted for COPD exacerbation.??On 3-5 L of oxygen at home at baseline, primarilyat night and on exertion. CT chest showed??No acute pulmonary embolism. Ground glass opacification in the right upper lobe and tree-in-bud nodularity is noted in the bilateral lungs which are favored to be infectious or inflammatory in etiology. - C/w prednisone 40 mg for 5 days. - C/w azithromycin 250 mg to complete 5 days. C/w Ceftriaxone for now for possible early pneumonia on CT. - Continue albuterol and Atrovent inhaler PRN Wes Silva MD * Michael Perrin MD - 02/14/2022 11:32 AM CDT BMT Hospitalist Progress Note BMT Day: Chief Complaint: Patient is a 56 y.o. male with chief complaint of COPD exacerbation, PNA. Subjective Became severely hyperglycemic yesterday with BG 506. Remained asymptomatic, but required IV regularand increased Lantus and SSI. Sugars back in the 200s. Active Treatment & Therapy Plans for [facility] Chemotherapy Treatment: [id number] - RS - Heme/BMT - INCB 600647 - EAP Ruxolitinib for GVHD (On Hold) Current day: Day 1, Cycle 3 and 4 (Planned for 01/25/2020) Following planned day: Day 1, Cycle 5-6 (Planned for 03/21/2020) Specialty Infusion Treatment: ZOLEDRONIC ACID (RECLAST) INFUSION Current treatment: Treatment 1 (Planned for 11/24/2021) Allergies Allergen Reactions ??? Adhesive Redness burn Current Facility-Administered Medications: ??? acetaminophen (TYLENOL) tablet 650 mg, 650 mg, oral, Q4H PRN, Moody Barahona MD ??? acetaminophen (TYLENOL) tablet 650 mg, 650 mg, oral, Q6H PRN, Moody Barahona MD ??? acyclovir (ZOVIRAX) tablet 400 mg, 400 mg, oral, Daily, Moody Barahona MD, 400 mg at 02/14/22 0945 ??? albuterol 2.5 mg/0.5 mL nebulizer solution 2.5 mg, 2.5 mg, nebulization, Q4H PRN (RT), 2.5 mg at 02/13/222199 AND ipratropium (ATROVENT) 0.02 % nebulizer solution 0.5 mg, 0.5 mg, nebulization, Q4H PRN (RT), Uyen Gleason MD, 0.5 mg at 02/13/222199 ? ? aluminum & magnesium jgcdxcxwn-lrdflbfyfnp-hfkkkwwvlqajfrp-lidocaine (MAGIC MOUTHWASH) suspension 1-1-1, 15 mL, swish & swallow, QID PRN, Moody Barahona MD ??? atorvastatin (LIPITOR) tablet 40 mg, 40 mg, oral, Daily, Moody Barahona MD, 40 mg at 02/14/22945 ??? azithromycin (ZITHROMAX) tablet 250 mg, 250 mg, oral, Daily, Sarbjit Velez MD, 250 mg at 02/14/22945 ??? bacitracin-polymyxin B (POLYSPORIN) 500-10,000 unit/gram ointment tube 1 application, 1 application, topical, Q4H PRN, Moody Barahona MD ??? camphor-menthoL (SARNA) 0.5-0.5 % lotion, , topical, Q2H PRN, Moody Barahona MD ??? cefepime (MAXIPIME) 1,000 mg/10 mL in sterile water (premix) 1,000 mg, 1,000 mg, intravenous, Once PRN, Moody Barahona MD ??? cefTRIAXone (ROCEPHIN) 1,000 mg/10 mL in sterile water (premix) 1,000 mg, 1,000 mg, intravenous, Q24H [facility], Luke Atkins MD, 1,000 mg at 02/14/22221 ??? dextrose (GLUTOSE) 40 % gel 15 g, 15 g, oral, Q15 Min PRN OR dextrose (D10W) 10% bolus 250 mL, 250 mL, intravenous, Q15 Min PRN, Moody Barahona MD ??? rwtmdhdkxkb-jkybzrtii-tmnqchfz (TRELEGY ELLIPTA) 100-62.5-25 mcg inhaler 1 puff, 1 puff, inhalation, Daily (RT), Michael Perrin MD ??? gabapentin (NEURONTIN) capsule 300 mg, 300 mg, oral, TID, Moody Barahona MD, 300 mg at 03/30/22 0946 ??? glucagon injection 1 mg, 1 mg, intramuscular, Q30 Min PRN, Moody Barahona MD ??? heparin 10 unit/mL flush 20-50 Units, 2-5 mL, intra-catheter, PRN, Moody Barahona MD ??? heparin 10 unit/mL flush 50 Units, 5 mL, intra-catheter, BID, Moody Barahona MD ??? insulin glargine (LANTUS, SEMGLEE) 100 unit/mL injection 15 Units, 15 Units, subcutaneous, Nightly, Rayo Hill MD, 15 Units at 02/13/222020 ??? insulin lispro (HumaLOG, ADMELOG) 100 unit/mL injection 0-10 Units, 0-10 Units, subcutaneous, TID with meals, Rayo Hill MD, 6 Units at 02/14/22 0944 ??? insulin lispro (HumaLOG, ADMELOG) 100 unit/mL injection 0-5 Units, 0-5 Units, subcutaneous, Nightly, Rayo Hill MD, 2 Units at 02/13/222218 ??? insulin lispro (HumaLOG, ADMELOG) 100 unit/mL injection 3 Units, 0.05 Units/kg, subcutaneous, TID with meals, Moody Barahona MD, 3 Units at 02/14/22 0945 ??? loperamide (IMODIUM) capsule 2 mg, 2 mg, oral, Q1H PRN, Moody Barahona MD ??? magnesium sulfate 4 g/100 mL in water (premix) 4 g, 4 g, intravenous, Q4H PRN, Lalo Barahona MD ??? magnesium sulfate 6 g in sodium chloride 0.9% 250 mL IVPB, 6 g, intravenous, Q4H PRN, Moody Barahona MD ??? montelukast (SINGULAIR) tablet 10 mg, 10 mg, oral, Daily, Moody Barahona MD, 10mg at 02/14/22945 ??? mycophenolate mofetil (CELLCEPT) tablet 1,000 mg, 1,000 mg, oral, BID, Moody Barahona MD, 1,000 mg at 02/14/22945 ??? nicotine (NICODERM CQ) 21 mg patch 24 hour 1 patch, 1 patch, transdermal, Daily, Sarbjit Velez MD, 1 patch at 02/14/22945 ??? ondansetron ODT (ZOFRAN-ODT) disintegrating tablet 4 mg, 4 mg, oral, Q8H PRN, Moody Barahona MD ??? pantoprazole DR (PROTONIX) extended release tablet 40 mg, 40 mg, oral, Daily, Moody Barahona MD, 40 mg at 02/14/2245 ??? polyvinyl alcohol-povidone (REFRESH CLASSIC) 1.4-0.6 % ophthalmic solution 2 drop, 2 drop, eacheye, Q4H PRN, Moody Barahona MD, 2 drop at 02/13/222218 ??? potassium chloride ER (KLOR-CON) extended release tablet 40 mEq, 40 mEq, oral, Q2H PRN, Moody Barahona MD ??? predniSONE (DELTASONE) tablet 40 mg, 40 mg, oral, Daily, Sarbjit Velez MD, 40 mgat 02/14/22945 ??? rivaroxaban (XARELTO) tablet 20 mg, 20 mg, oral, Daily, Moody Barahona MD, 20 mg at 02/14/22945 ??? sodium chloride (OCEAN) 0.65 % nasal spray 2 spray, 2 spray, each nostril, Q1H PRN, Moody Barahona MD ??? sodium chloride 0.9% flush 10-20 mL, 10-20 mL, intra-catheter, PRN, Moody Barahona MD, 10 mL at 02/14/22 0950 ??? sodium chloride 0.9% flush 5-10 mL, 5-10 mL, intra-catheter, Q12H ROSA MARIA, Moody Barahona MD, 10 mL at 02/13/22 1546 ??? sodium chloride 0.9% infusion, 30 mL/hr, intravenous, Continuous PRN, Moody Barahona MD ? ? sodium chloride 0.9% irrigation 30 mL, 30 mL, swish & spit, QID, Moody Barahona MD ??? sodium chloride 0.9% IVPB 0-250 mL, 0-250 mL, intravenous, PRN, Moody Barahona MD ??? sodium phosphate - potassium phosphate (K-PHOS NEUTRAL) tablet 500 mg, 500 mg, oral, Daily PRN,Moody Barahona MD ??? tacrolimus (PROGRAF) immediate-release capsule 0.5 mg, 0.5 mg, oral, Every other day, Moody Barahona MD, 0.5 mg at 02/14/22 0945 ??? voriCONAZOLE (VFEND) tablet 200 mg, 200 mg, oral, BID, Moody Barahona MD, 200 mg at 02/14/22 0946 ??? white petrolatum-mineral oiL (EUCERIN) cream, , topical, Q2H PRN, Moody Barahona MD Objective Vitals: 24hr Min/Max: Temp Min: 36.4 ??C (97.52 ??F) Max: 36.8 ??C (98.24 ??F) Pulse Min: 66 Max: 101 BP Min: 131/77 Max: 170/77 Resp Min: 20 Max: 22 SpO2 Min: 89 % Max: 100 % Most Recent : Vitals: 02/14/22 0752 BP: 160/83 BP Location: Right arm Patient Position: Sitting Pulse: 66 Resp: 20 Temp: 36.5 ??C (97.7 ??F) TempSrc: Oral SpO2: 96% Weight: I/O last 2 completed shifts: In: 1440 [P.O.:1440] Out: 1675 [Urine:1675] ICE Score: No data found. Baseline ICE Score: CRS and ICANS Grading: No data found. No data found. No data found. Physical exam: General: Well appearing, NAD, appears stated age Skin: no rash, normal color and turgor HEENT: normocephalic, PERRLA, EOMI, no mucositis CV: RRR. No m/g/r, normal S1S2 Lungs: Mild BL wheezes, crackles, unlabored respiratory effort Abdomen: Soft, NTND, +BS Extremities: Atraumatic, acyanotic, no TTP, no edema Neuro: AAOx3, CN II-XII grossly intact, normal speech Psych: Appropriate mood, affect, and judgement. Lab/Radiology/Diagnostic Review: I have reviewed the laboratory, radiologic, and diagnostic results. CBC: Recent Labs Lab Units 02/14/22 0231 WBC K/cumm 20.0* HEMOGLOBIN g/dL 10.4* HEMATOCRIT % 29.5* MCV fL 97.7* MCH pg 34.4* MCHC g/dL 35.3 RDW CV % 13.6 RDWSD fL 48.1 MPV fL 10.2 NEUTROS ABS K/cumm 17.9* CMP: Recent Labs Lab Units 02/14/22 0754 02/14/22 0231 02/12/22 0848 02/12/22 0642 SODIUM mmol/L -- 141 < > 134* POTASSIUM PLASMA mmol/L -- 4.4 < > 4.7 CO2 mmol/L -- 29 < > 24 BUN SERUM mg/dL -- 27* < > 10 GLUCOSE mg/dL -- 222* < > 257* POC GLUCOSE MONITOR mg/dL 251* -- < > -- CREATININE mg/dL -- 0.75* < > 0.70* CALCIUM mg/dL -- 8.7 < > 9.1 CHLORIDE mmol/L -- 101 < > 96* ALBUMIN g/dL -- -- -- 3.5 AST Units/L -- -- -- 41 ALT Units/L -- -- -- 32 ALK PHOS Units/L -- -- -- 288* BILIRUBIN TOTAL mg/dL -- -- -- 0.4 TOTAL PROTEIN g/dL -- -- -- 8.0 ANIONGAP mmol/L -- 11 < > 14 < > = values in this interval not displayed. LDH: Recent Labs Lab Units 02/13/22 0047 LACTATE DEHYDROGENASE (LDH) Units/L 376* Uric Acid: Recent Labs Lab Units 02/13/22 0047 URIC ACID mg/dL 5.2 Tacrolimus level: Recent Labs Lab Units 02/12/22 0901 02/12/22 0642 TACROLIMUS RANDOM ng/mL -- 1.2 TACROLIMUS TROUGH ng/mL 1.0 -- Sirolimus level: Cyclosporine level: PT: Recent Labs Lab Units 02/12/22 0642 PROTIME (PT) sec 12.2 PTT: Recent Labs Lab Units 02/12/22 0642 APTT sec 34 Radiology: CT Chest PE (CTA) W Contrast Narrative: EXAMINATION: CT CHEST PE (CTA) W CONTRAST HISTORY: 56-year-old male with chest pain and hemoptysis. TECHNIQUE: Computed tomographic images were acquired using a chest angiographic protocol optimized for pulmonary embolism. Contrast enhanced transaxial images were obtained following the intravenous administration of 95 ml of nonionic contrast. Multiplanar reformatted images and three-dimensional images were obtained on the 3-D workstation and sent to the PACS archival system. COMPARISON: CT of the chest dated 09/07/2021 FINDINGS: No acute pulmonary embolism. Decreased areas of tree-in-bud nodularity within the bilateral lungs. New focus of groundglass opacification within the right upper lobe. Emphysematous changes are seen. No effusion or pneumothorax. New 0.6 cm spiculated nodule within the right middle lobe (series 7, image 73). Stable 0.5 cm right lower lobe pulmonary nodule (series 7, image 100). The heart size is normal without pericardial effusion. The thoracic aorta is normal in course and caliber. The thyroid is normal. Stable prominent ot enlarged supraclavicular lymph nodes. There is no axillary, mediastinal or hilar lymphadenopathy. Cholelithiasis without cholecystitis. The stomach is distended and filled with debris. Otherwise, the visualized upper abdomen is normal. 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 The bones show no suspicious osseous lesions. CT imaging evidence of right heart strain: No Impression: 1. No acute pulmonary embolism. 2. New indeterminate subcentimeter right middle lobe nodule could be neoplastic, with stable prominent right supraclavicular lymph nodes. Recommend short-term interval follow-up. 3. Ground glass opacification in the right upper lobe and tree-in-bud nodularity is noted in the bilateral lungs which are favored to be infectious or inflammatory in etiology. Dictated by: Zohaib López M.D. The radiology attending physician has personally reviewed this study, and had reviewed and/or edited this written report and agrees with it. Electronically signed by: Sonia Swann M.D. X-ray chest 1 view (Portable) Narrative: EXAMINATION: 1 view chest radiograph Impression: Comparison 02/12/2020 2:24 PM. Marked underlying changes of emphysema again noted. Increase patchy right lateral midlung opacity and persistent opacity overlying the right infrahilar area noted, concerning for pneumonia or aspiration. The left lung is clear. No pneumothorax or pleural effusion seen. Heart size and mediastinal contour remain within normal limits. Electronically signed by: Derrell Ochoa M.D. Assessment/Plan COPD with exacerbation Patient is being admitted for COPD exacerbation.??On 3-5 L of oxygen at home at baseline, primarilyat night and on exertion. CT chest showed??No acute pulmonary embolism. Ground glass opacification in the right upper lobe and tree-in-bud nodularity is noted in the bilateral lungs which are favored to be infectious or inflammatory in etiology. - Prednisone 40 mg for 5 days to complete on 02/15. - C/w Change CTX/Azitro to Levofloxacin to complete a 10 day course given immunosuppressed state. - Continue albuterol and Atrovent inhaler PRN - Home O2 eval. ?? New indeterminate subcentimeter right middle lobe nodule With stable prominent right supraclavicular lymph nodes. - DDx includes malignancy. Will need repeat CT as outpt ?? Pure hypercholesterolemia - continue home dose atorvastatin 40 mg PO daily ?? Type 2 diabetes mellitus - Lantus 15U, HD-SSI. Uncontrolled in the setting of steroids. Last dose of Prednisone 02/15. ?? DVT -??History of DVT 2012, 2018, PE??in 2012.??He takes Xaralto at home - Continue to take Xaralto 20 mg Po daily.? 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 Follows Dr. 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 Currently takes tacrolimus 0.5 mg every 48 hours and Cellcept 1000 mg BID. - tacrolimus levels random ordered. Last dose received was 02/10. Patient also takes acyclovir and voriconazole for medical ppx ?? Dwwqd-hyxsjz-kxuo disease - Continue home dose tacrolimus and Cellcept. - Follow tarco level random? Peripheral neuropathy - Continue home dose gabapentin 300 mg TID Dispo: DC home pending glycemic control * Giovanni Hanna RN - 02/13/2022 3:45 PM CDT 02/13/22 1541 Discharge Summary Chart reviewed For Medical Necessity Does patient have a planned readmission to hospital planned? No Discharge Disposition Home Equipment/Provider Needs No Home Needs Identified Discharge Additional Assistance Does the patient need discharge transport arranged? Yes Has discharge transport been arranged? Yes Details of Transportation (See manager property's note for details) What day is the transport expected? 02/13/22 What time is the transport expected? 1630 Discharge Transportation Communication Mode of transport has been discussed with the patient/family. All are agreeable to the plan and understand their responsibilities to ensure the safe transfer. No further CM/SW intervention is anticipated at this time. Post Discharge Care Provider Post Discharge Care Plan Next level of care provider has access to complete EMR Discharge to home today Follow-up appointments completed by inpatient Nurse Coordinator * Michael Perrin MD - 02/13/2022 1:48 PM CDT BMT Hospitalist Progress Note BMT Day: Chief Complaint: Patient is a 56 y.o. male with chief complaint of COPD exacerbation, PNA. Subjective SOB improving. Still wheezing, but improving. Feels almost back to baseline. Active Treatment & Therapy Plans for [facility] Chemotherapy Treatment: [id number] - RSH - Heme/BMT - INCB [id number] - EAP Ruxolitinib for GVHD (On Hold) Current day: Day 1, Cycle 3 and 4 (Planned for 01/25/2020) Following planned day: Day 1, Cycle 5-6 (Planned for 03/21/2020) Specialty Infusion Treatment: ZOLEDRONIC ACID (RECLAST) INFUSION Current treatment: Treatment 1 (Planned for 11/24/2021) Allergies Allergen Reactions ??? Adhesive Redness burn Current Facility-Administered Medications: ??? acetaminophen (TYLENOL) tablet 650 mg, 650 mg, oral, Q4H PRN, Moody Barahona MD ??? acetaminophen (TYLENOL) tablet 650 mg, 650 mg, oral, Q6H PRN, Moody Barahona MD ??? acyclovir (ZOVIRAX) tablet 400 mg, 400 mg, oral, Daily, Moody Barahona MD, 400 mg at 02/13/22 0749 ??? albuterol 2.5 mg/0.5 mL nebulizer solution 2.5 mg, 2.5 mg, nebulization, Q4H PRN (RT), 2.5 mg at 02/13/22 0350 AND ipratropium (ATROVENT) 0.02 % nebulizer solution 0.5 mg, 0.5 mg, nebulization, Q4H PRN (RT), Uyen Gleason MD, 0.5 mg at 02/13/22 0350 ? ? aluminum & magnesium jjyuwcaap-ldtynbtjkwl-gxigyzhyvyqfksc-lidocaine (MAGIC MOUTHWASH) suspension 1-1-1, 15 mL, swish & swallow, QID PRN, Moody Barahona MD ??? atorvastatin (LIPITOR) tablet 40 mg, 40 mg, oral, Daily, Moody Barahona MD, 40 mg at 02/13/22 0748 ??? azithromycin (ZITHROMAX) tablet 250 mg, 250 mg, oral, Daily, Sarbjit Velez MD, 250 mg at 02/13/22 0748 ??? bacitracin-polymyxin B (POLYSPORIN) 500-10,000 unit/gram ointment tube 1 application, 1 application, topical, Q4H PRN, Moody Barahona MD ??? camphor-menthoL (SARNA) 0.5-0.5 % lotion, , topical, Q2H PRN, Moody Barahona MD ??? cefepime (MAXIPIME) 1,000 mg/10 mL in sterile water (premix) 1,000 mg, 1,000 mg, intravenous, Once PRN, Moody Barahona MD ??? cefTRIAXone (ROCEPHIN) 1,000 mg/10 mL in sterile water (premix) 1,000 mg, 1,000 mg, intravenous, Q24H ROSA MARIA, Luke Atkins MD, 1,000 mg at 02/13/22 0047 ??? dextrose (GLUTOSE) 40 % gel 15 g, 15 g, oral, Q15 Min PRN OR dextrose (D10W) 10% bolus 250 mL, 250 mL, intravenous, Q15 Min PRN, Moody Barahona MD ??? gabapentin (NEURONTIN) capsule 300 mg, 300 mg, oral, TID, Moody Barahona MD, 300 mg at 02/13/22 0748 ??? glucagon injection 1 mg, 1 mg, intramuscular, Q30 Min PRN, Moody Barahona MD ??? heparin 10 unit/mL flush 20-50 Units, 2-5 mL, intra-catheter, PRN, Moody Barahona MD ??? heparin 10 unit/mL flush 50 Units, 5 mL, intra-catheter, BID, Moody Barahona MD ??? insulin glargine (LANTUS, SEMGLEE) 100 unit/mL injection 10 Units, 0.15 Units/kg, subcutaneous,Nightly, Moody Baraohna MD, 10 Units at 02/12/222032 ??? insulin lispro (HumaLOG, ADMELOG) 100 unit/mL injection 0-4 Units, 0-4 Units, subcutaneous, Nightly, Moody Barahona MD, 3 Units at 02/12/222032 ??? insulin lispro (HumaLOG, ADMELOG) 100 unit/mL injection 0-5 Units, 0-5 Units, subcutaneous, TIDwith meals, Moody Barahona MD, 1 Units at 02/13/22 1224 ??? insulin lispro (HumaLOG, ADMELOG) 100 unit/mL injection 3 Units, 0.05 Units/kg, subcutaneous, TID with meals, Moody Barahona MD, 3 Units at 02/13/22 1224 ??? loperamide (IMODIUM) capsule 2 mg, 2 mg, oral, Q1H PRN, Moody Barahona MD ??? magnesium sulfate 4 g/100 mL in water (premix) 4 g, 4 g, intravenous, Q4H PRN, Lalo Barahoan MD ??? magnesium sulfate 6 g in sodium chloride 0.9% 250 mL IVPB, 6 g, intravenous, Q4H PRN, Moody Barahona MD ??? montelukast (SINGULAIR) tablet 10 mg, 10 mg, oral, Daily, Moody Barahona MD, 10mg at 02/13/22 0748 ??? mycophenolate mofetil (CELLCEPT) tablet 1,000 mg, 1,000 mg, oral, BID, Moody Barahona MD, 1,000 mg at 02/13/22 0748 ??? nicotine (NICODERM CQ) 21 mg patch 24 hour 1 patch, 1 patch, transdermal, Daily, Sarbjit Velez MD, 1 patch at 02/13/22 0748 ??? ondansetron ODT (ZOFRAN-ODT) disintegrating tablet 4 mg, 4 mg, oral, Q8H PRN, Moody Barahona MD ??? pantoprazole DR (PROTONIX) extended release tablet 40 mg, 40 mg, oral, Daily, Moody Barahona MD, 40 mg at 02/13/22 0748 ??? polyvinyl alcohol-povidone (REFRESH CLASSIC) 1.4-0.6 % ophthalmic solution 2 drop, 2 drop, eacheye, Q4H PRN, [place], Moody Barrientos MD, 2 drop at 02/13/22 0747 ??? potassium chloride ER (KLOR-CON) extended release tablet 40 mEq, 40 mEq, oral, Q2H PRN, Moody Barahona MD ??? predniSONE (DELTASONE) tablet 40 mg, 40 mg, oral, Daily, Sarbjit Velez MD, 40 mgat 02/13/22 0748 ??? rivaroxaban (XARELTO) tablet 20 mg, 20 mg, oral, Daily, Moody Barahona MD, 20 mg at 02/13/22 0748 ??? sodium chloride (OCEAN) 0.65 % nasal spray 2 spray, 2 spray, each nostril, Q1H PRN, Moody Barahona MD ??? sodium chloride 0.9% flush 10-20 mL, 10-20 mL, intra-catheter, PRN, Moody Barahona MD ??? sodium chloride 0.9% flush 5-10 mL, 5-10 mL, intra-catheter, Q12H ROSA MARIA, Moody Barahona MD, 10 mL at 02/12/22 0906 ??? sodium chloride 0.9% infusion, 30 mL/hr, intravenous, Continuous PRN, Moody Barahona MD ? ? sodium chloride 0.9% irrigation 30 mL, 30 mL, swish & spit, QID, Moody Barahona MD ??? sodium chloride 0.9% IVPB 0-250 mL, 0-250 mL, intravenous, PRN, Moody Barahona MD ??? sodium phosphate - potassium phosphate (K-PHOS NEUTRAL) tablet 500 mg, 500 mg, oral, Daily PRN,Moody Barahona MD ??? sodium phosphate - potassium phosphate (K-PHOS NEUTRAL) tablet 500 mg, 500 mg, oral, TID with meals, Michael Perrin MD, 500 mg at 02/13/22 1223 ??? tacrolimus (PROGRAF) immediate-release capsule 0.5 mg, 0.5 mg, oral, Every other day, Moody Barahona MD, 0.5 mg at 02/12/22 0902 ??? voriCONAZOLE (VFEND) tablet 200 mg, 200 mg, oral, BID, Moody Barahona MD, 200 mg at 02/13/22 0747 ??? white petrolatum-mineral oiL (EUCERIN) cream, , topical, Q2H PRN, Moody Barahona MD Objective Vitals: 24hr Min/Max: Temp Min: 36.5 ??C (97.7 ??F) Max: 36.7 ??C (98.1 ??F) Pulse Min: 59 Max: 78 BP Min: 121/64 Max: 138/71 Resp Min: 18 Max: 18 SpO2 Min: 92 % Max: 98 % Most Recent : Vitals: 02/13/22 1108 BP: 131/59 BP Location: Right arm Patient Position: Sitting Pulse: 78 Resp: 18 Temp: 36.7 ??C (98.1 ??F) TempSrc: Oral SpO2: 95% Weight: I/O last 2 completed shifts: In: 1400 [P.O.:1370; I.V.:30] Out: 400 [Urine:400] ICE Score: No data found. Baseline ICE Score: CRS and ICANS Grading: No data found. No data found. No data found. Physical exam: General: Well appearing, NAD, appears stated age Skin: no rash, normal color and turgor HEENT: normocephalic, PERRLA, EOMI, no mucositis CV: RRR. No m/g/r, normal S1S2 Lungs: Mild BL wheezes, crackles, unlabored respiratory effort Abdomen: Soft, NTND, +BS Extremities: Atraumatic, acyanotic, no TTP, no edema Neuro: AAOx3, CN II-XII grossly intact, normal speech Psych: Appropriate mood, affect, and judgement. Lab/Radiology/Diagnostic Review: I have reviewed the laboratory, radiologic, and diagnostic results. CBC: Recent Labs Lab Units 02/13/2246 WBC K/cumm 16.4* HEMOGLOBIN g/dL 11.5* HEMATOCRIT % 32.4* MCV fL 98.8* MCH pg 35.1* MCHC g/dL 35.5 RDW CV % 13.2 RDWSD fL 48.0 MPV fL 10.0 NEUTROS ABS K/cumm 13.5* CMP: Recent Labs Lab Units 02/13/22 1107 02/13/22 0743 02/13/224602/12/22 0848 02/12/22 0642 SODIUM mmol/L -- -- 137 -- 134* POTASSIUM PLASMA mmol/L -- -- 4.5 -- 4.7 CO2 mmol/L -- -- 29 -- 24 BUN SERUM mg/dL -- -- 18 -- 10 GLUCOSE mg/dL -- -- 280* -- 257* POC GLUCOSE MONITOR mg/dL 160 < > -- < > -- CREATININE mg/dL -- -- 0.89 -- 0.70* CALCIUM mg/dL -- -- 9.0 -- 9.1 CHLORIDE mmol/L -- -- 102 -- 96* ALBUMIN g/dL -- -- -- -- 3.5 AST Units/L -- -- -- -- 41 ALT Units/L -- -- -- -- 32 ALK PHOS Units/L -- -- -- -- 288* BILIRUBIN TOTAL mg/dL -- -- -- -- 0.4 TOTAL PROTEIN g/dL -- -- -- -- 8.0 ANIONGAP mmol/L -- -- 6 -- 14 < > = values in this interval not displayed. LDH: Recent Labs Lab Units 02/13/2246 LACTATE DEHYDROGENASE (LDH) Units/L 376* Uric Acid: Recent Labs Lab Units 02/13/2246 URIC ACID mg/dL 5.2 Tacrolimus level: Recent Labs Lab Units 02/12/22 0901 02/12/22 0642 TACROLIMUS RANDOM ng/mL -- 1.2 TACROLIMUS TROUGH ng/mL 1.0 -- Sirolimus level: Cyclosporine level: PT: Recent Labs Lab Units 02/12/22 0642 PROTIME (PT) sec 12.2 PTT: Recent Labs Lab Units 02/12/22 0642 APTT sec 34 Radiology: CT Chest PE (CTA) W Contrast Narrative: EXAMINATION: CT CHEST PE (CTA) W CONTRAST HISTORY: 56-year-old male with chest pain and hemoptysis. TECHNIQUE: Computed tomographic images were acquired using a chest angiographic protocol optimized for pulmonary embolism. Contrast enhanced transaxial images were obtained following the intravenous administration of 95 ml of nonionic contrast. Multiplanar reformatted images and three-dimensional images were obtained on the 3-D workstation and sent to the PACS archival system. COMPARISON: CT of the chest dated 09/07/2021 FINDINGS: No acute pulmonary embolism. Decreased areas of tree-in-bud nodularity within the bilateral lungs. New focus of groundglass opacification within the right upper lobe. Emphysematous changes are seen. No effusion or pneumothorax. New 0.6 cm spiculated nodule within the right middle lobe (series 7, image 73). Stable 0.5 cm right lower lobe pulmonary nodule (series 7, image 100). The heart size is normal without pericardial effusion. The thoracic aorta is normal in course and caliber. The thyroid is normal. Stable prominent ot enlarged supraclavicular lymph nodes. There is no axillary, mediastinal or hilar lymphadenopathy. Cholelithiasis without cholecystitis. The stomach is distended and filled with debris. Otherwise, the visualized upper abdomen is normal. 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 The bones show no suspicious osseous lesions. CT imaging evidence of right heart strain: No Impression: 1. No acute pulmonary embolism. 2. New indeterminate subcentimeter right middle lobe nodule could be neoplastic, with stable prominent right supraclavicular lymph nodes. Recommend short-term interval follow-up. 3. Ground glass opacification in the right upper lobe and tree-in-bud nodularity is noted in the bilateral lungs which are favored to be infectious or inflammatory in etiology. Dictated by: Zohaib López M.D. The radiology attending physician has personally reviewed this study, and had reviewed and/or edited this written report and agrees with it. Electronically signed by: Sonia Swann M.D. X-ray chest 1 view (Portable) Narrative: EXAMINATION: 1 view chest radiograph Impression: Comparison 02/12/2020 2:24 PM. Marked underlying changes of emphysema again noted. Increase patchy right lateral midlung opacity and persistent opacity overlying the right infrahilar area noted, concerning for pneumonia or aspiration. The left lung is clear. No pneumothorax or pleural effusion seen. Heart size and mediastinal contour remain within normal limits. Electronically signed by: Derrell Ochoa M.D. Assessment/Plan COPD with exacerbation Patient is being admitted for COPD exacerbation.??On 3-5 L of oxygen at home at baseline, primarilyat night and on exertion. CT chest showed??No acute pulmonary embolism. Ground glass opacification in the right upper lobe and tree-in-bud nodularity is noted in the bilateral lungs which are favored to be infectious or inflammatory in etiology. - C/w prednisone 40 mg for 5 days. - C/w Change CTX/Azitro to Levofloxacin to complete a 10 day course given immunosuppressed state. - Continue albuterol and Atrovent inhaler PRN - Home O2 eval. ?? New indeterminate subcentimeter right middle lobe nodule With stable prominent right supraclavicular lymph nodes. - DDx includes malignancy. Will need repeat CT ?? Pure hypercholesterolemia - continue home dose atorvastatin 40 mg PO daily ?? Type 2 diabetes mellitus (HCC) - Continue Lantus 10 units and Sliding scale for diabetic control.??Adjust after steroids ?? DVT (deep venous thrombosis) (CMS/HCC) (HCC) -??History of DVT 2012, 2018, PE??in 2012.??He takes Xaralto at home - Continue to take Xaralto 20 mg Po daily.? 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 Follows Dr. 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 Currently takes tacrolimus 0.5 mg every 48 hours and Cellcept 1000 mg BID. - tacrolimus levels random ordered. Last dose received was 02/10. Patient also takes acyclovir and voriconazole for medical ppx ?? Ogxpb-mnlopp-czij disease (HCC) - Continue home dose tacrolimus and Cellcept. - Follow tarco level random? Peripheral neuropathy - Continue home dose gabapentin 300 mg TID Discharge Planning I have spent 35 minutes on discharge planning activities. Time spent was on Coordination of care, Follow up , Counselling with patient/family, discharge exam and parent/patient education. * Stephenie Farr RRT - 02/13/2022 1:33 PM CDT 02/13/22 1332 Resting Information Resting HR. 78 bpm Resting SPO2 92 % Oxygen Setting Room air Post Ambulation Assessment HR Post Assessment 90 bpm RR Post Assessment 20 breaths/m $ Home O2 Assessment Yes SpO2 of 88% on room air must be documented. Then titrate FiO2 to keep SpO2 above 90%. Rest SpO2 92% Resting on Room Air Exertion Patient ambulated 200 feet SpO2 89% ambulating on room air Recommendations 0 LNC at rest 0 LNC with exertion * Nora Leos - 02/13/2022 12:12 PM CDT Spiritual care note oncology care mgr Nora Leos [id number].Patient was welcoming and receptive to my visit.He unpacked his life journey,story, narrative and trajectory.I wasuplifted and moved by how much has endured including health and family losses.My sense is that he felt safe and encouraged by me to share to whatever extent he wanted to, and did.Brady was open and at times vulnerable.His story is poignant and compelling- I was touched he chose to share, and I believe it was cathartic for patient to do so., and a release.I encouraged the focus on thepatient;tried seeing things through his worldview;cultivated a relationship of care and support;entered care seeker's life space and story with a sense of awe,humility,wonder and openness to the mystery of life narratives;sat quietly,reverently and compassionately;witnessed the totality of his exper ience;normalized situation/feelings;facilitated storytelling;identified meaningful connections,including G-D,family and interests/hobbies;created sacred space, and also prayed spontaneously.It was anhonor,privilege and vianney to connect with one to another, and he is in my prayers. 02/13/22 1200 Time Spent Start Time 0945 Stop Time 1100 Time Calculation (min) 75 min Patient Spiritual Assessment Spirituality Assessed Yes Sikhism Affiliation Mandaeism Spiritual Needs Bereavement/grief;End of life care Clinical Encounter Type Visited With Patient Response Type Routine visit Routine Visit Introduction Reason for visit Support Referral From (self) Outcomes and Progress Aligning care with patient's values Partially Achieved Preserve dignity and respect Achieved Demonstrating care and respect Achieved Jeanie affirmation Partially Achieved Engage community support Partially Achieved Meaning making (Memory making) Achieved Establish rapport and connectedness Achieved Sense of peace Partially Achieved Journeying with someone in the grief process Partially Achieved Lessen anxiety Partially Achieved Lessen someone's feelings of lonliness Achieved Acceptance of condition or situation Partially Achieved Interventions Interventions Active listening;Assist with finding purpose;Explore jeanie and values;Explore cultural values;Facilitate understanding of limitations;Offer emotional support;Offer spiritual/gnosticism support * Wes Silva MD - 02/13/2022 11:24 AM CDT BMT Progress Note Active Treatment Plans for Brady Jones Oncology Chemotherapy Treatment: [id number] - RSH - Heme/BMT - INCB 510110 - EAP Ruxolitinib for GVHD (On Hold) Current day: Day 1, Cycle 3 and 4 (Planned for 01/25/2020) Following planned day: Day 1, Cycle 5-6 (Planned for 03/21/2020) Subjective Patient is a 56 y.o. male with chief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 MD COPD exacerbation ([facility]) ([facility]) Hemoptysis Shortness of breath Pneumonia due to infectious organism, unspecified laterality, unspecified part of lung Luke Atkins MD Resident 02/12/22 0555 Cosigned by Uyen Gleason MD at 02/12/2022 6:42 AM CDT Associated attestation - Uyen Gleason MD - 02/12/2022 6:42 AM CDT I have seen and examined the patient on 02/11/2022. I agree with the findings and plan of care as documented in the resident's note. * Lori Starr RN - 02/11/2022 10:50 PM CDT Bed: ED2-24 Expected date: Expected time: Means of arrival: Car Comments: Lori Starr RN 02/11/22 5570 * Jasper Abbott RN - 02/11/2022 7:05 PM CDT Pt presents to ED by car for SOB w/ CP that started yesterday. Pt has been having increased productive cough with jelly like dark brown sputum. HX of COPD and CHF. States wears oxygen at night and with exertion. 97% on RA in triage. Lung sounds coarse. Able to speak in full sentences. documented in this encounter Miscellaneous Notes * Plan of Care - Sebastian Hernandez RN - 02/14/2022 8:01 PM CDT Problem: Activity: Goal: Ability to implement measures to reduce episodes of fatigue will improve Outcome: Progressing Problem: Bowel/Gastric: Goal: Will not experience complications related to bowel motility Outcome: Progressing Problem: Lack of Knowledge: Goal: Knowledge of diagnostic tests will improve Outcome: Progressing Goal: Knowledge of disease or condition will improve Outcome: Progressing Goal: Knowledge of the prescribed therapeutic regimen will improve Outcome: Progressing Goal: Knowledge of pain management will improve Outcome: Progressing Problem: Coping: Goal: Ability to identify and develop effective coping behavior will improve Outcome: Progressing Problem: Fluid Volume: Goal: Will maintain adequate fluid volume Outcome: Progressing Problem: Health Behavior: Goal: Compliance with treatment plan for underlying cause of condition will improve Outcome: Progressing Goal: Ability to manage health-related needs will improve Outcome: Progressing Goal: Identification of resources available to assist in meeting health care needs will improve Outcome: Progressing Problem: Medication: Goal: Compliance with prescribed medication regimen will improve Outcome: Progressing Goal: Risk for medication side effects will decrease Outcome: Progressing Problem: Nutritional: Goal: Maintenance of adequate nutrition will improve Outcome: Progressing Problem: Physical Regulation: Goal: Complications related to the disease process, condition or treatment will be avoided or minimized Outcome: Progressing Goal: Ability to maintain clinical measurements within normal limits will improve Outcome: Progressing Problem: Respiratory: Goal: Ability to maintain adequate ventilation will improve Outcome: Progressing Problem: Sensory: Goal: General experience of comfort will improve Outcome: Progressing Problem: Skin Integrity: Goal: Risk for impaired skin integrity will decrease Outcome: Progressing Problem: Skin Integrity: Goal: Risk for impaired skin integrity will decrease Outcome: Progressing Problem: Health Behavior: Goal: Understanding of discharge needs will improve Outcome: Progressing Problem: Health Behavior: Goal: Understanding of discharge needs will improve Outcome: Progressing Problem: Lack of Knowledge: Goal: Ability to state ways to decrease the risk of falls will improve Outcome: Progressing Problem: Safety: Goal: Will remain free from falls Outcome: Progressing Goal: Will remain free from injury from falls Outcome: Progressing Goal: Will remain free from falls and injury in home environment Outcome: Progressing Goals: Clinical Goals for the Shift: D/C home Summary: * Plan of Care - Xiomara Frazier RN - 02/14/2022 5:21 PM CDT Goals: Problem: Activity: Goal: Ability to implement measures to reduce episodes of fatigue will improve Outcome: Progressing Problem: Bowel/Gastric: Goal: Will not experience complications related to bowel motility Outcome: Progressing Problem: Lack of Knowledge: Goal: Knowledge of diagnostic tests will improve Outcome: Progressing Goal: Knowledge of disease or condition will improve Outcome: Progressing Goal: Knowledge of the prescribed therapeutic regimen will improve Outcome: Progressing Goal: Knowledge of pain management will improve Outcome: Progressing Problem: Coping: Goal: Ability to identify and develop effective coping behavior will improve Outcome: Progressing Problem: Fluid Volume: Goal: Will maintain adequate fluid volume Outcome: Progressing Problem: Health Behavior: Goal: Compliance with treatment plan for underlying cause of condition will improve Outcome: Progressing Goal: Ability to manage health-related needs will improve Outcome: Progressing Goal: Identification of resources available to assist in meeting health care needs will improve Outcome: Progressing Problem: Medication: Goal: Compliance with prescribed medication regimen will improve Outcome: Progressing Goal: Risk for medication side effects will decrease Outcome: Progressing Problem: Nutritional: Goal: Maintenance of adequate nutrition will improve Outcome: Progressing Problem: Physical Regulation: Goal: Complications related to the disease process, condition or treatment will be avoided or minimized Outcome: Progressing Goal: Ability to maintain clinical measurements within normal limits will improve Outcome: Progressing Problem: Respiratory: Goal: Ability to maintain adequate ventilation will improve Outcome: Progressing Problem: Sensory: Goal: General experience of comfort will improve Outcome: Progressing Problem: Skin Integrity: Goal: Risk for impaired skin integrity will decrease Outcome: Progressing Problem: Health Behavior: Goal: Understanding of discharge needs will improve Outcome: Progressing Problem: Health Behavior: Goal: Understanding of discharge needs will improve Outcome: Progressing Problem: Lack of Knowledge: Goal: Ability to state ways to decrease the risk of falls will improve Outcome: Progressing Problem: Safety: Goal: Will remain free from falls Outcome: Progressing Goal: Will remain free from injury from falls Outcome: Progressing Goal: Will remain free from falls and injury in home environment Outcome: Progressing Clinical Goals for the Shift: VSS, manage blood sugar, d/c home Summary: VSS. Pt blood sugar within sliding scale range. Plan to d/c home when ride arrives this evening. * Plan of Care - Clinton Gamble RRT - 02/14/2022 12:45 PM CDT Patient was ordered on respiratory medications for COPD. Patient tolerated treatment without issue. Plan - Transition treatment to bedside per bronchodilator protocol because patient was able to demonstrate ability to self administer. * Plan of Care - Sebastian Hernandez RN - 02/13/2022 11:44 PM CDT Problem: Lack of Knowledge: Goal: Knowledge of diagnostic tests will improve Outcome: Progressing Goal: Knowledge of disease or condition will improve Outcome: Progressing Goal: Knowledge of the prescribed therapeutic regimen will improve Outcome: Progressing Goal: Knowledge of pain management will improve Outcome: Progressing Problem: Coping: Goal: Ability to identify and develop effective coping behavior will improve Outcome: Progressing Problem: Health Behavior: Goal: Compliance with treatment plan for underlying cause of condition will improve Outcome: Progressing Goal: Ability to manage health-related needs will improve Outcome: Progressing Goal: Identification of resources available to assist in meeting health care needs will improve Outcome: Progressing Problem: Medication: Goal: Compliance with prescribed medication regimen will improve Outcome: Progressing Goal: Risk for medication side effects will decrease Outcome: Progressing Problem: Sensory: Goal: General experience of comfort will improve Outcome: Progressing Goals: Clinical Goals for the Shift: Glucose control Summary: * Provider Query - Michael Perrin MD - 02/13/2022 5:33 PM CDT Clinical Indicators/Treatments: ?? Per 02/12/2022 CT Chest PE, 'Ground glass opacification in the right upper lobe and tree-in-bud nodularity is noted in the bilateral lungs which are favored to be infectious or inflammatory in etiology' ?? Per 02/12/2022 XR Chest 1 view, 'Increase patchy right lateral midlung opacity and persistent opacity overlying the right infrahilar area noted, concerning for pneumonia or aspiration'. ?? Started on ceftriaxone with concern for possible CAP pneumonia, per 02/12/2022 H&P ?? Per 02/13/2022 BMT Hospitalist progress note, change ceftriaxone/azithromycin to Levofloxacin to complete a 10 day course given immunosuppressed state ?? No documentation of dysphagia or concern for aspiration Based on the clinical indicators and antibiotic choice, specify the most likely pneumonia being treated. Document in the medical record and on the form below. NOTE: CAP and HCAP do not indicate the organism being treated. Select all conditions being treated: __x__Gram negative pneumonia __x__Gram positive pneumonia __x__Strep pneumonia _x___Bacterial pneumonia, unspecified ____Other, specify below ____Clinically unable to determine Additional Provider Response: Pneumonia bacterial, possibly gram positive, possibly gram negative Use of terms such as likely, suspected, possible, or probable (associated with a specific diagnosisthat is being evaluated, monitored, or treated as if it exists) are acceptable and can be coded in the inpatient setting when documented at the time of discharge. This documentation will become part of the patient???s medical record. Thank you, Cesilia Tiraod RN, BSN, MS, CCDS [employer] Tech [email or web address] * Plan of Care - Giovanni Hanna RN - 02/13/2022 3:27 PM CDT Obtained potential discharge transportation services from [place] with [employer] @[phone] .Discharge transportation arranged with tammy dodson [employer] @ [phone] for pick-up At [address] [place] [id number] [address] [place] [address]. Non [employer] will call [phone] on arrival. [employer] tracking /Auth#[id number] provided to [place]. [employer] Non-Emergency Transport form completed and faxed to [phone]. Patient and direct care nurse(student ) notified of the above * Plan of Care - Gisela Chappell - 02/13/2022 2:23 PM CDT Problem: Activity: Goal: Ability to implement measures to reduce episodes of fatigue will improve Outcome: Adequate for Discharge Problem: Bowel/Gastric: Goal: Will not experience complications related to bowel motility Outcome: Adequate for Discharge Problem: Lack of Knowledge: Goal: Knowledge of diagnostic tests will improve Outcome: Adequate for Discharge Goal: Knowledge of disease or condition will improve Outcome: Adequate for Discharge Goal: Knowledge of the prescribed therapeutic regimen will improve Outcome: Adequate for Discharge Goal: Knowledge of pain management will improve Outcome: Adequate for Discharge Problem: Coping: Goal: Ability to identify and develop effective coping behavior will improve Outcome: Adequate for Discharge Problem: Fluid Volume: Goal: Will maintain adequate fluid volume Outcome: Adequate for Discharge Problem: Health Behavior: Goal: Compliance with treatment plan for underlying cause of condition will improve Outcome: Adequate for Discharge Goal: Ability to manage health-related needs will improve Outcome: Adequate for Discharge Goal: Identification of resources available to assist in meeting health care needs will improve Outcome: Adequate for Discharge Problem: Medication: Goal: Compliance with prescribed medication regimen will improve Outcome: Adequate for Discharge Goal: Risk for medication side effects will decrease Outcome: Adequate for Discharge Problem: Nutritional: Goal: Maintenance of adequate nutrition will improve Outcome: Adequate for Discharge Problem: Physical Regulation: Goal: Complications related to the disease process, condition or treatment will be avoided or minimized Outcome: Adequate for Discharge Goal: Ability to maintain clinical measurements within normal limits will improve Outcome: Adequate for Discharge Problem: Respiratory: Goal: Ability to maintain adequate ventilation will improve Outcome: Adequate for Discharge Problem: Sensory: Goal: General experience of comfort will improve Outcome: Adequate for Discharge Problem: Skin Integrity: Goal: Risk for impaired skin integrity will decrease Outcome: Adequate for Discharge Problem: Health Behavior: Goal: Understanding of discharge needs will improve Outcome: Adequate for Discharge Problem: Health Behavior: Goal: Understanding of discharge needs will improve Outcome: Adequate for Discharge Problem: Lack of Knowledge: Goal: Ability to state ways to decrease the risk of falls will improve Outcome: Adequate for Discharge Problem: Safety: Goal: Will remain free from falls Outcome: Adequate for Discharge Goal: Will remain free from injury from falls Outcome: Adequate for Discharge Goal: Will remain free from falls and injury in home environment Outcome: Adequate for Discharge Summary: VSS, pain controlled, pt ready for d/c home Cosigned by Xiomara Frazier RN at 02/13/2022 4:52 PM CDT * Plan of Care - Fer Sommer RN - 02/12/2022 9:58 PM CDT Problem: Activity: Goal: Ability to implement measures to reduce episodes of fatigue will improve 02/12/20222156 by Fer Sommer, RN Outcome: Progressing Problem: Bowel/Gastric: Goal: Will not experience complications related to bowel motility 02/12/20222156 by Fer Sommer RN Outcome: Progressing Problem: Lack of Knowledge: Goal: Knowledge of disease or condition will improve 02/12/20222156 by Fer Sommer RN Outcome: Progressing Goal: Knowledge of the prescribed therapeutic regimen will improve 02/12/20222156 by Fer Sommer RN Outcome: Progressing Problem: Fluid Volume: Goal: Will maintain adequate fluid volume 02/12/20222156 by Fer Sommer RN Outcome: Progressing Problem: Health Behavior: Goal: Compliance with treatment plan for underlying cause of condition will improve 02/12/20222156 by Fer Sommer RN Outcome: Progressing Goal: Ability to manage health-related needs will improve Outcome: Progressing Problem: Medication: Goal: Compliance with prescribed medication regimen will improve 02/12/20222156 by Fer Sommer RN Outcome: Progressing Goal: Risk for medication side effects will decrease Outcome: Progressing Problem: Physical Regulation: Goal: Complications related to the disease process, condition or treatment will be avoided or minimized 02/12/20222156 by Fer Sommer RN Outcome: Progressing Goal: Ability to maintain clinical measurements within normal limits will improve 02/12/20222156 by Fer Sommer RN Outcome: Progressing Problem: Respiratory: Goal: Ability to maintain adequate ventilation will improve 02/12/20222156 by Fer Sommer RN Outcome: Progressing Problem: Sensory: Goal: General experience of comfort will improve 02/12/20222156 by Fer Sommer RN Outcome: Progressing Problem: Skin Integrity: Goal: Risk for impaired skin integrity will decrease 02/12/20222156 by Fer Sommer RN Outcome: Progressing Problem: Health Behavior: Goal: Understanding of discharge needs will improve 02/12/20222156 by Fer Sommer RN Outcome: Progressing Problem: Safety: Goal: Will remain free from falls Outcome: Progressing Goal: Will remain free from injury from falls Outcome: Progressing Goals: Clinical Goals for the Shift: VSS, sleep hygiene, monitor labs, pain control Summary: Patient working to progress towards goals. Patient reports neuropathic pain in feet. Alleviating factors include gabapentin and rest. Sleep hygiene promoted, patient slept intermittently with minimal interruptions by RN. Labs drawn. Vital signs fall within normative patient parameters for duration of shift. * Hospital Course - Michael Perrin MD - 02/12/2022 6:40 PM CDT COPD with exacerbation ([facility]) ([facility]) Admitted for COPD exacerbation. He uses 3-5 L of oxygen at home at night and on exertion. CT chest showed No acute pulmonary embolism but ground glass opacification in the right upper lobe and tree-in-bud nodularity is noted in the bilateral lungs which are favored to be infectious or inflammatory in etiology. Started on Ceftriaxone and Azithromycin and switched to Levofloxacin on discharge to complete 10 days of ABX. Received prednisone as inpatient and discharge on Pred 40 mg daily to complete 5 days. He was previously out of his Trelegy Ellipta, which was refilled. He underwent home O2 eval on day of discharge and was back to his home O2 requirements. Patient clinically improved back to baseline prior to discharge. New indeterminate subcentimeter right middle lobe nodule on CT With stable prominent right supraclavicular lymph nodes. DDx includes malignancy so will need repeat CT short term. Pure hypercholesterolemia - continue home dose atorvastatin 40 mg PO daily Type 2 diabetes mellitus (HCC) - Lantus 15 units and Sliding scale for diabetic control. Discharge was delayed by one day given severe steroid-induced hyperglycemia with BG 504. He received IV regular, his Lantus was increased from 10U to 15U and his SSI was changed to high dose. His BG was then better controlled and he was stable for discharge on 02/14. DVT (deep venous thrombosis) ([facility]) ([facility]) - History of DVT 2012, 2017, PE in 2012. He takes Xaralto at home - Continue to take Xaralto 20 mg Po daily. 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HCC) - hx of Stem cell transplant in [address] 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 Currently takes tacrolimus 0.5 mg every 48 hours and Cellcept 1000 mg BID. - tacrolimus levels random ordered. Last dose received was 02/10. 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 - Follow tarco level random Peripheral neuropathy - Continue home dose gabapentin 300 mg TID * Plan of Care - Xiomara Frazier RN - 02/12/2022 4:39 PM CDT Goals: Problem: Activity: Goal: Ability to implement measures to reduce episodes of fatigue will improve Outcome: Progressing Problem: Bowel/Gastric: Goal: Will not experience complications related to bowel motility Outcome: Progressing Problem: Lack of Knowledge: Goal: Knowledge of diagnostic tests will improve Outcome: Progressing Goal: Knowledge of disease or condition will improve Outcome: Progressing Goal: Knowledge of the prescribed therapeutic regimen will improve Outcome: Progressing Goal: Knowledge of pain management will improve Outcome: Progressing Problem: Coping: Goal: Ability to identify and develop effective coping behavior will improve Outcome: Progressing Problem: Fluid Volume: Goal: Will maintain adequate fluid volume Outcome: Progressing Problem: Health Behavior: Goal: Compliance with treatment plan for underlying cause of condition will improve Outcome: Progressing Goal: Ability to manage health-related needs will improve Outcome: Progressing Goal: Identification of resources available to assist in meeting health care needs will improve Outcome: Progressing Problem: Medication: Goal: Compliance with prescribed medication regimen will improve Outcome: Progressing Goal: Risk for medication side effects will decrease Outcome: Progressing Problem: Nutritional: Goal: Maintenance of adequate nutrition will improve Outcome: Progressing Problem: Physical Regulation: Goal: Complications related to the disease process, condition or treatment will be avoided or minimized Outcome: Progressing Goal: Ability to maintain clinical measurements within normal limits will improve Outcome: Progressing Problem: Respiratory: Goal: Ability to maintain adequate ventilation will improve Outcome: Progressing Problem: Sensory: Goal: General experience of comfort will improve Outcome: Progressing Problem: Skin Integrity: Goal: Risk for impaired skin integrity will decrease Outcome: Progressing Problem: Health Behavior: Goal: Understanding of discharge needs will improve Outcome: Progressing Clinical Goals for the Shift: VSS, remain free from fall/injury, orient to floor, monitor O2 status Summary: VSS. Pt progressing towards goals and resting comfortably at this time. * Plan of Care - Mellisa Leyva RN - 02/12/2022 7:02 AM CDT Problem: Activity: Goal: Ability to implement measures to reduce episodes of fatigue will improve Outcome: Progressing Problem: Bowel/Gastric: Goal: Will not experience complications related to bowel motility Outcome: Progressing Problem: Lack of Knowledge: Goal: Knowledge of diagnostic tests will improve Outcome: Progressing Goal: Knowledge of disease or condition will improve Outcome: Progressing Goal: Knowledge of the prescribed therapeutic regimen will improve Outcome: Progressing Goal: Knowledge of pain management will improve Outcome: Progressing Problem: Coping: Goal: Ability to identify and develop effective coping behavior will improve Outcome: Progressing Problem: Fluid Volume: Goal: Will maintain adequate fluid volume Outcome: Progressing Problem: Health Behavior: Goal: Compliance with treatment plan for underlying cause of condition will improve Outcome: Progressing Goal: Ability to manage health-related needs will improve Outcome: Progressing Goal: Identification of resources available to assist in meeting health care needs will improve Outcome: Progressing Problem: Medication: Goal: Compliance with prescribed medication regimen will improve Outcome: Progressing Goal: Risk for medication side effects will decrease Outcome: Progressing Problem: Nutritional: Goal: Maintenance of adequate nutrition will improve Outcome: Progressing Problem: Physical Regulation: Goal: Complications related to the disease process, condition or treatment will be avoided or minimized Outcome: Progressing Goal: Ability to maintain clinical measurements within normal limits will improve Outcome: Progressing Problem: Respiratory: Goal: Ability to maintain adequate ventilation will improve Outcome: Progressing Problem: Sensory: Goal: General experience of comfort will improve Outcome: Progressing Problem: Skin Integrity: Goal: Risk for impaired skin integrity will decrease Outcome: Progressing Problem: Health Behavior: Goal: Understanding of discharge needs will improve Outcome: Progressing Goals: Clinical Goals for the Shift: vss,remain injury free,rest Summary: * Plan of Care - Mellisa Leyva RN - 02/12/2022 6:56 AM CDT Goals: Clinical Goals for the Shift: vss,remain injury free,rest Summary: As of right now the patients vitals have remained within the normal range, he has avoided all injury and is resting in bed. He denies any pain at this time. * Assessment & Plan Note - Moody Barahona MD - 02/12/2022 6:44 AM CDTAssociated Problem(s): Peripheral neuropathy - Continue home dose gabapentin 300 mg TID * Assessment & Plan Note - Moody Barahona MD - 02/12/2022 6:30 AM CDTAssociated Problem(s): Higls-qymxaf-czog disease (HCC) - Continue home dose tacrolimus and Cellcept. - Follow tarco level random * Assessment & Plan Note - Moody Barahona MD - 02/12/2022 6:26 AM CDTAssociated Problem(s): 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HCC) - hx of Stem cell transplant in [address] 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 Currently takes tacrolimus 0.5 mg every 48 hours and Cellcept 1000 mg BID. - tacrolimus levels random ordered. Last dose received was 02/10. Patient also takes acyclovir and voriconazole for medical ppx * Assessment & Plan Note - Moody Barahona MD - 02/12/2022 6:22 AM CDTAssociated Problem(s): DVT (deep venous thrombosis) (CMS/HCC) ([facility]) - History of DVT 2012, 2017, PE??in 2012. He takes Xaralto at home - Continue to take Xaralto 20 mg Po daily. * Assessment & Plan Note - Moody Barahona MD - 02/12/2022 6:02 AM CDTAssociated Problem(s): Type 2 diabetes mellitus ([facility]) - Continue Lantus 10 units and Sliding scale for diabetic control. * Assessment & Plan Note - Moody Barahona MD - 02/12/2022 6:01 AM CDTAssociated Problem(s): Pure hypercholesterolemia - continue home dose atorvastatin 40 mg PO daily * Assessment & Plan Note - Moody Barahona MD - 02/12/2022 5:53 AM CDTAssociated Problem(s): COPD with exacerbation (CMS/[facility]) ([facility]) - Patient is being admitted for COPD [...] of the esophagus which may represent esophagitis. * Plan of Care - Harsha Zepeda RRT - 02/11/2022 11:34 PM CDT Pt given neb. No changes in aeration. Scattered coarse wheezing. Pt asking for steroid with neb. * ED Procedure Note - Tirso Louise MD - 02/11/2022 7:20 PM CDT Associated Order(s): ECG 12 lead Procedure ECG 12 lead Date/Time: 02/11/2022 7:20 PM Performed by: Tirso Louise MD Authorized by: Kirt Riley MD Quality: Tracing quality: Limited by artifact Rate: ECG rate: 89 ECG rate assessment: normal Rhythm: Rhythm: sinus rhythm Ectopy: Ectopy: none QRS: QRS axis: Normal Conduction: Conduction: normal ST segments: ST segments: Normal T waves: T waves: non-specific Other findings: Other findings: BHARAT Previous ECG: Previous ECG: Compared to current Date of previous EC09/07/2021 Interpretation: Interpretation: No acute injury pattern Recommended Follow-up: Recommended follow up: further workup in the ED Tirso Louise MD 03/27/22 1922 documented in this encounter Plan of Treatment Scheduled Orders Name Type Priority Associated Diagnoses Orde r Schedule Urinalysis reflex to microscopic and culture Urine, clean voided Microbiology STAT Lab orders - as needed, STAT collection for 1 Occurrences starting 02/12/2022 C. difficile testing Stool Microbiology STAT Lab orders - as needed, STAT collection for 1 Occurrences starting 02/12/2022 documented as of this encounter Procedures Procedure Name Priority Date/Time Associated Diagnosis Comments POCT GLUCOSE DEVICE Routine 02/14/2022 4 :53 PM CDT POCT GLUCOSE DEVICE Routine 02/14/2022 1 :14 PM CDT POCT GLUCOSE DEVICE Routine 02/14/2022 7 :54 AM CDT BMT CBC Routine 02/14/2022 2:31 AM CDT EGFR Routine 02/14/2022 2:31 AM CDT MANUAL DIFFERENTIAL Routine 02/14/2022 2 :31 AM CDT CBC WITHOUT DIFFERENTIAL Routine 02/14/2022 2:31 AM CDT PHOSPHORUS Routine 02/14/2022 2:31 AM CDT MAGNESIUM Routine 02/14/2022 2:31 AM CDT BASIC METABOLIC PANEL Routine 02/14/2022 2:31 AM CDT POCT GLUCOSE DEVICE Routine 02/13/2022 9 :57 PM CDT POCT GLUCOSE DEVICE Routine 02/13/2022 7 :58 PM CDT POCT GLUCOSE DEVICE Routine 02/13/2022 6 :01 PM CDT POCT GLUCOSE DEVICE Routine 02/13/2022 4 :33 PM CDT POCT GLUCOSE DEVICE Routine 02/13/2022 3 :33 PM CDT POCT GLUCOSE DEVICE Routine 02/13/2022 3 :31 PM CDT POCT GLUCOSE DEVICE Routine 02/13/2022 1 1:07 AM CDT POCT GLUCOSE DEVICE Routine 02/13/2022 7 :43 AM CDT BMT CBC Routine 02/13/2022 12:47 AM CDT EGFR Routine 02/13/2022 12:47 AM CDT MANUAL DIFFERENTIAL Routine 02/13/2022 1 2:47 AM CDT CBC WITHOUT DIFFERENTIAL Routine 02/13/2022 12:47 AM CDT TYPE AND SCREEN Timed 02/13/2022 12:47 AM CDT URIC ACID Routine 02/13/2022 12:47 AM CDT PHOSPHORUS Routine 02/13/2022 12:47 AM CDT MAGNESIUM Routine 02/13/2022 12:47 AM CDT LACTATE DEHYDROGENASE Routine 02/13/2022 12:47 AM CDT BASIC METABOLIC PANEL Routine 02/13/2022 12:47 AM CDT POCT GLUCOSE DEVICE Routine 02/12/2022 8 :26 PM CDT POCT GLUCOSE DEVICE Routine 02/12/2022 4 :59 PM CDT POCT GLUCOSE DEVICE Routine 02/12/2022 1 1:58 AM CDT VORICONAZOLE LEVEL, TROUGH Timed 02/12/2022 9:01 AM CDT TACROLIMUS LEVEL, TROUGH Timed 02/12/2022 9:01 AM CDT POCT GLUCOSE DEVICE Routine 02/12/2022 8 :48 AM CDT BMT CBC STAT 02/12/2022 6:42 AM CDT EGFR STAT 02/12/2022 6:42 AM CDT TACROLIMUS LEVEL, RANDOM Timed 02/12/2022 6:42 AM CDT MANUAL DIFFERENTIAL STAT 02/12/2022 6 :42 AM CDT APTT STAT 02/12/2022 6:42 AM CDT PROTIME-INR STAT 02/12/2022 6:42 AM CDT FIBRINOGEN STAT 02/12/2022 6:42 AM CDT CBC WITHOUT DIFFERENTIAL STAT 02/12/2022 6:42 AM CDT TYPE AND SCREEN STAT 02/12/2022 6:42 AM CDT URIC ACID STAT 02/12/2022 6:42 AM CDT PHOSPHORUS STAT 02/12/2022 6:42 AM CDT MAGNESIUM STAT 02/12/2022 6:42 AM CDT LACTATE DEHYDROGENASE STAT 02/12/2022 6:42 AM CDT HEMOGLOBIN A1C STAT 02/12/2022 6:42 AM CDT LIPID PANEL STAT 02/12/2022 6:42 AM CDT COMPREHENSIVE METABOLIC PANEL STAT 02/12/2022 6:42 AM CDT XR CHEST 1 VIEW IP Routine 02/12/2022 5:59 AM CDT ECG 12-LEAD STAT 02/12/2022 5:48 AM CDT POCT GLUCOSE DEVICE Routine 02/12/2022 4 :17 AM CDT TROPONIN I HIGH-SENSITIVITY 6-HOUR Timed 02/12/2022 2:[address] CHEST PE W CONTRAST ED 02/12/2022 1:00 AM CDT TROPONIN I HIGH-SENSITIVITY 4-HOUR Timed 02/11/2022 11:58 PM CDT INFLUENZA A/B, RSV, AND COVID-19 PCR Routine 02/11/2022 11:41 PM CDT POCT GLUCOSE DEVICE Routine 02/11/2022 1 0:37 PM CDT TROPONIN I HIGH-SENSITIVITY 2-HOUR Timed 02/11/2022 10:33 PM CDT XR CHEST PA LATERAL 2 VIEWS ED 02/11/2022 8:29 PM CDT TROPONIN I HIGH-SENSITIVITY SERIES (BASELINE, 2HR, 4HR, 6HR) STAT 02/11/2022 8:16 PM CDT EGFR STAT 02/11/2022 8:16 PM CDT DIFFERENTIAL AUTO STAT 02/11/2022 8:1 6 PM CDT PRO B-TYPE NATRIURETIC PEPTIDE STAT 02/11/2022 8:16 PM CDT CBC WITH AUTO DIFFERENTIAL STAT 02/11/2022 8:16 PM CDT COMPREHENSIVE METABOLIC PANEL STAT 02/11/2022 8:16 PM CDT ECG 12-LEAD STAT 02/11/2022 7:20 PM CDT POCT GLUCOSE DEVICE Routine 02/11/2022 7 :18 PM CDT documented in this encounter Results * (ABNORMAL) POCT glucose (02/14/2022 4:53 PM CDT) Glucose, POC 313(H) 70 - 199 mg/dL [facility] Blood 02/14/2022 4:53 PM CDT 02/14/2022 4:53 PM CDT us Uyen Gleason MD LAB POCT ORDERABLE S - DEVICE Final Result Performing Organization Address [facility] de Phone Number [facility] Department [place] [address] * (ABNORMAL) POCT glucose (02/14/2022 1:14 PM CDT) Glucose, POC 263(H) 70 - 199 mg/dL [facility] Blood 02/14/2022 1:14 PM CDT 02/14/2022 1:14 PM CDT Uyen Gleason MD LAB POCT ORDERABLE S - DEVICE Final Result Performing Organization Address [facility] de Phone Number [facility] Department [place] [address] * (ABNORMAL) POCT glucose (02/14/2022 7:54 AM CDT) Glucose, POC 251(H) 70 - 199 mg/dL [facility] Glucose comment 1 Glu2: RN/ Notified [facility] Blood 02/14/2022 7:54 AM CDT 02/14/2022 7:54 AM CDT us Uyen Gleason MD LAB POCT ORDERABLE S - DEVICE Final Result Performing Organization Address [facility] Co de Phone Number ZULEMA DENT Daniel[facility] Department [place] [address] * eGFR (02/14/2022 2:31 AM CDT) [facility] eGFR >90 90 - 130 mL/min/1. 73 [facility]2 [facility] Comment: Interpretive Data Reference Interval Normal ?>/= [...] interpretive data was last reviewed 2021. Blood 02/14/2022 2:31 AM CDT 02/14/2022 2:51 AM CDT Moody Barahona MD LAB BLOOD ORDERA BLES Final Result Performing Organization Address [facility] Co de Phone Number ZULEMA DENT [facility] Department [place] [address] * (ABNORMAL) Manual Differential (02/14/2022 2:31 AM CDT) Pathologist [facility] Differential Manual [facility] Cells Counted 115 [facility] Neutrophil abs 17.9(H) 1.7 - 6.5 K/cumm [facility] Imm gran abs 0.0 0.0 - 0.1 K/cumm [facility] Lymphocyte abs 1.6 0.8 - 3.3 K/cumm [facility] Monocyte abs 0.5 0.2 - 0.8 K/cumm [facility] Neutrophil pct 89.6 % [facility] Comment: Interpretive Data Percent cell count reference ranges are not reported, since discordance with absolute values may lead to misinterpretation of CBC data. Current Interpretive Data was last revised on 2018. Lymphocyte pct 7.8 % [facility] Comment: Interpretive Data Percent cell count reference ranges are not reported, since discordance with absolute values may lead to misinterpretation of CBC data. Current Interpretive Data was last revised on 2018. Monocyte pct 2.6 % [facility] Comment: Interpretive Data Percent cell count reference ranges are not reported, since discordance with absolute values may lead to misinterpretation of CBC data. Current Interpretive Data was last revised on 2018. RBC morphology Present(A) [facility] Anisocytosis Moderate(A) [facility] Poikilocytosis Slight(A) [facility] Macrocytes 8-15/HPF(A) [facility] Platelet estimate Adequate [facility] Blood 02/14/2022 2:31 AM CDT 02/14/2022 2:50 AM CDT Moody Jacky Barahona MD LAB BLOOD ORDERA BLES Edited Result - Final [facility] Department of Laboratories [place], [place] [id number] * (ABNORMAL) CBC without differential (02/14/2022 2:31 AM CDT) [facility] WBC 20.0(H) 3.8 - 9.9 K/cumm [facility] Hgb 10.4(L) 13.0 - 17.5 g/dL [facility] Hct 29.5(L) 38.9 - 50.3 % [facility] Plt 314 150 - 400 K/cumm [facility] MPV 10.2 9.1 - 12.3 fL [facility] RBC 3.02(L) 4.30 - 5.80 M/cumm [facility] MCV 97.7(H) 81.3 - 96.4 fL [facility] MCH 34.4(H) 27.1 - 33.3 pg [facility] MCHC 35.3 32.3 - 35.7 g/dL [facility] RDW CV 13.6 11.1 - 14.9 % [facility] RDW SD 48.1 35.7 - 48.1 fL [facility] NRBC abs 0.00 0.00 - 0.01 K/cumm [facility] Blood 02/14/2022 2:31 AM CDT 02/14/2022 2:50 AM CDT [facility] Floyd Barahona MD LAB BLOOD ORDERA BLES Final Result [facility] Department [place] [address] * (ABNORMAL) Basic metabolic panel (02/14/2022 2:31 AM CDT) Sodium 141 135 - 145 mmol/L [facility] Potassium, pl 4.4 3.3 - 4.9 mmol/L [facility] Chloride 101 97 - 110 mmol/L [facility] CO2 29 22 - 32 mmol/L [facility] Anion gap 11 2 - 15 mmol/L [facility] BUN 27(H) 8 - 25 mg/dL [facility] Creatinine 0.75(L) 0.80 - 1.30 mg/dL [facility] Glucose 222(H) 70 - 199 mg/dL [facility] Comment: Interpretive Data Fasting glucose >/= [...] Current interpretive data was last revised 2017. Calcium 8.7 8.5 - 10.3 mg/dL [facility] Blood 02/14/2022 2:31 AM CDT 02/14/2022 2:51 AM CDT Narrative [facility] - 02/14/2022 3:16 AM CDT Daily except Saturday and . Morning draw. us Moody Barahona MD LAB BLOOD ORDERA BLES Final Result Performing Organization Address City/[facility]/ZIP Co de Phone Number [facility] Department [place] [address] * Phosphorus (02/14/2022 2:31 AM CDT) Phosphorus, pl 3.7 2.3 - 4.5 mg/dL [facility] Blood 02/14/2022 2:31 AM CDT 02/14/2022 2:51 AM CDT Moody Barahona MD LAB BLOOD ORDERA BLES Final Result [facility] Department [place] [address] * Magnesium (02/14/2022 2:31 AM CDT) Magnesium 1.7 1.4 - 2.5 mg/dL [facility] Blood 02/14/2022 2:31 AM CDT 02/14/2022 2:51 AM CDT Moody Barahona MD LAB BLOOD ORDERA BLES Final Result Performing Organization Address [facility] Co de Phone Number [facility] [place] [address] * (ABNORMAL) POCT glucose (02/13/2022 9:57 PM CDT) Glucose, POC 211(H) 70 - 199 mg/dL [facility] Blood 02/13/2022 9:57 PM CDT 02/13/2022 9:57 PM CDT Uyen Gleason MD LAB POCT ORDERABLE S - DEVICE Final Result Performing Organization Address [facility] Co de Phone Number [facility] [place] [address] * (ABNORMAL) POCT glucose (02/13/2022 7:58 PM CDT) Glucose, POC 363(H) 70 - 199 mg/dL [facility] Blood 02/13/2022 7:58 PM CDT 02/13/2022 7:58 PM CDT Uyen Gleason MD LAB POCT ORDERABLE S - DEVICE Final Result Performing Organization Address [facility] Co de Phone Number [facility] [place] [address] * (ABNORMAL) POCT glucose (02/13/2022 6:01 PM CDT) Glucose, POC 456(C) 70 - 199 mg/dL [facility] Glucose comment 1 Glu2: RN/MD Notified [facility] Blood 02/13/2022 6:01 PM CDT 02/13/2022 6:01 PM CDT Uyen Gleason MD LAB POCT ORDERABLE S - DEVICE Final Result Performing Organization Address [facility] [place] [address] * (ABNORMAL) POCT glucose (02/13/2022 4:33 PM CDT) Glucose, POC 448(H) 70 - 199 mg/dL [facility] Blood 02/13/2022 4:33 PM CDT 02/13/2022 4:33 PM CDT Uyen Gleason MD LAB POCT ORDERABLE S - DEVICE Final Result Performing Organization Address [facility] [place] [address] * (ABNORMAL) POCT glucose (02/13/2022 3:33 PM CDT) Glucose, POC 486(C) 70 - 199 mg/dL [facility] Glucose comment 1 Glu2: RN/ Notified [facility] Blood 02/13/2022 3:33 PM CDT 02/13/2022 3:33 PM CDT Uyen Gleason MD LAB POCT ORDERABLE S - DEVICE Final Result Performing Organization Address [facility] Co de Phone Number [facility] [place] [address] * (ABNORMAL) POCT glucose (02/13/2022 3:31 PM CDT) Glucose, POC 506(C) 70 - 199 mg/dL [facility] Glucose comment 1 Glu2: RN/ Notified [facility] Blood 02/13/2022 3:31 PM CDT 02/13/2022 3:31 PM CDT Uyen Gleason MD LAB POCT ORDERABLE S - DEVICE Final Result Performing Organization Address [facility] de Phone Number [facility] [place] [address] * POCT glucose (02/13/2022 11:07 AM CDT) Glucose, POC 160 70 - 199 mg/dL [facility] Blood 02/13/2022 11:0 7 AM CDT 02/13/2022 11:07 AM CDT Uyen Gleason MD LAB POCT ORDERABLE S - DEVICE Final Result Performing Organization Address [facility] [place] [address] * (ABNORMAL) POCT glucose (02/13/2022 7:43 AM CDT) Glucose, POC 248(H) 70 - 199 mg/dL [facility] Blood 02/13/2022 7:43 AM CDT 02/13/2022 7:43 AM CDT Result [facility] Uyen Gleason MD LAB POCT ORDERABLE S - DEVICE Final Result Performing Organization Address [facility] [place] [address] * eGFR (02/13/2022 12:47 AM CDT) Pathologist [facility] eGFR >90 90 - 130 mL/min/1. 73 m2 [facility] Comment: Interpretive Data Reference Interval Normal [...] interpretive data was last reviewed 2021. Blood 02/13/2022 12:4 7 AM CDT 02/13/2022 1:23 AM CDT us Moody Barahona MD LAB BLOOD ORDERA BLES Final Result Performing Organization Address [facility]/ZIP Co de Phone Number [facility] Department [place] [address] * (ABNORMAL) Lactate dehydrogenase (LD) (02/13/2022 12:47 AM CDT) Lactate dehydrogenase (LDH) 376(H) 100 - 250 Units/L [facility] Comment:Hemolyzed; result ma y be falsely elevated Blood 02/13/2022 12:4 7 AM CDT 02/13/2022 1:00 AM CDT us Uyen Gleason MD LAB BLOOD ORDERABL ES Final Result Performing Organization Address [facility] Co de Phone Number [facility] Department [place] [address] * Uric acid (02/13/2022 12:47 AM CDT) Pathologist [facility] Uric acid 5.2 3.0 - 8.0 mg/dL [facility] Blood 02/13/2022 12:4 7 AM CDT 02/13/2022 1:00 AM CDT us Uyen Gleason MD LAB BLOOD ORDERABL ES Final Result [facility] [place] [address] * (ABNORMAL) Manual Differential (02/13/2022 12:47 AM CDT) Pathologist [facility] Differential Manual [facility] Cells Counted 114 [facility] Neutrophil abs 13.5(H) 1.7 - 6.5 K/cumm [facility] Imm gran abs 0.0 0.0 - 0.1 K/cumm [facility] Lymphocyte abs 2.2 0.8 - 3.3 K/cumm [facility] Monocyte abs 0.7 0.2 - 0.8 K/cumm [facility] Neutrophil pct 82.4 % [facility] Comment: Interpretive Data Percent cell count reference ranges are not reported, since discordance with absolute values may lead to misinterpretation of CBC data. Current Interpretive Data was last revised on 2018. Lymphocyte pct 12.3 % [facility] Comment: Interpretive Data Percent cell count reference ranges are not reported, since discordance with absolute values may lead to misinterpretation of CBC data. Current Interpretive Data was last revised on 2018. Monocyte pct 4.4 % [facility] Comment: Interpretive Data Percent cell count reference ranges are not reported, since discordance with absolute values may lead to misinterpretation of CBC data. Current Interpretive Data was last revised on 2018. Variant lymph pct 0.9 % [facility] RBC morphology Present(A) [facility] Anisocytosis Moderate(A) [facility] Poikilocytosis Slight(A) [facility] Macrocytes 8-15/HPF(A) [facility] Acanthocytes 3-7/HPF(A) [facility] Platelet estimate Adequate [facility] Blood 02/13/2022 12:4 7 AM CDT 02/13/2022 1:06 AM CDT [facility] Jacky Barahona MD LAB BLOOD ORDERA BLES Edited Result - Final Performing Organization Address [facility]/ZIP Co de Phone Number [facility] Department [place] [address] * (ABNORMAL) CBC without differential (02/13/2022 12:47 AM CDT) WBC 16.4(H) 3.8 - 9.9 K/cumm [facility] Hgb 11.5(L) 13.0 - 17.5 g/dL [facility] Hct 32.4(L) 38.9 - 50.3 % [facility] Plt 331 150 - 400 K/cumm [facility] MPV 10.0 9.1 - 12.3 fL [facility] RBC 3.28(L) 4.30 - 5.80 M/cumm [facility] MCV 98.8(H) 81.3 - 96.4 fL [facility] MCH 35.1(H) 27.1 - 33.3 pg [facility] MCHC 35.5 32.3 - 35.7 g/dL [facility] RDW CV 13.2 11.1 - 14.9 % [facility] RDW SD 48.0 35.7 - 48.1 fL [facility] NRBC abs 0.00 0.00 - 0.01 K/cumm [facility] Blood 02/13/2022 12:4 7 AM CDT 02/13/2022 1:06 AM CDT Moody Barahona MD LAB BLOOD ORDERA BLES Final Result Performing Organization Address [facility]/ZIP Co de Phone Number [facility] Department [place] [address] * Type and screen (02/13/2022 12:47 AM CDT) Pathologist [facility] Ursula, indirect Negative [facility] ABO Rh A Positive [facility] Blood 02/13/2022 12:4 7 AM CDT 02/13/2022 1:28 AM CDT Narrative [facility] - 02/13/2022 2:24 AM CDT Has the patient had Daratumumab or Isatuximab in the past 6 months?->Unknown Moody Barahona MD LAB BLOOD BANK T EST ORDERABLES Final Result [facility] [place] [address] * (ABNORMAL) Basic metabolic panel (02/13/2022 12:47 AM CDT) [facility] Sodium 137 135 - 145 mmol/L [facility] Potassium, pl 4.5 3.3 - 4.9 mmol/L [facility] Comment:Hemolyzed; Potassium value may be falsely elevated by as much as 0.3-0.5 mmol/L. Suggest redraw and reanalysis. Chloride 102 97 - 110 mmol/L [facility] CO2 29 22 - 32 mmol/L [facility] Anion gap 6 2 - 15 mmol/L [facility] BUN 18 8 - 25 mg/dL [facility] Creatinine 0.89 0.80 - 1.30 mg/dL [facility] Glucose 280(H) 70 - 199 mg/dL [facility] Comment: Interpretive Data Fasting glucose >/= [...] Current interpretive data was last revised 2017. Calcium 9.0 8.5 - 10.3 mg/dL [facility] Blood 02/13/2022 12:4 7 AM CDT 02/13/2022 1:00 AM CDT Narrative [facility] - 02/13/2022 1:51 AM CDT Daily except Saturday and . Morning draw. Moody Barahona MD LAB BLOOD ORDERA BLES Final Result Performing Organization Address [facility]/ZIP Co de Phone Number [facility] Department [place] [address] * (ABNORMAL) Phosphorus (02/13/2022 12:47 AM CDT) Phosphorus, pl 2.1(L) 2.3 - 4.5 mg/dL [facility] Blood 02/13/2022 12:4 7 AM CDT 02/13/2022 1:00 AM CDT Moody Barahona MD LAB BLOOD ORDERA BLES Final Result Performing Organization Address [facility] Co de Phone Number [facility] Department [place] [address] * Magnesium (02/13/2022 12:47 AM CDT) Magnesium 1.6 1.4 - 2.5 mg/dL [facility] Blood 02/13/2022 12:4 7 AM CDT 02/13/2022 1:00 AM CDT us Moody Barahona MD LAB BLOOD ORDERA BLES Final Result Performing Organization Address [facility] Co de Phone Number [facility] Department [place] [address] * (ABNORMAL) POCT glucose (02/12/2022 8:26 PM CDT) Glucose, POC 321(H) 70 - 199 mg/dL [facility] Blood 02/12/2022 8:26 PM CDT 02/12/2022 8:26 PM CDT us Uyen Gleason MD LAB POCT ORDERABLE S - DEVICE Final Result Performing Organization Address [facility]/ZIP Co de Phone Number [facility] [place] [address] * (ABNORMAL) POCT glucose (02/12/2022 4:59 PM CDT) Glucose, POC 279(H) 70 - 199 mg/dL [facility] Blood 02/12/2022 4:59 PM CDT 02/12/2022 4:59 PM CDT Uyen Gleason MD LAB POCT ORDERABLE S - DEVICE Final Result Performing Organization Address [facility] Co de Phone Number [facility] Department [place] [address] * (ABNORMAL) POCT glucose (02/12/2022 11:58 AM CDT) Glucose, POC 283(H) 70 - 199 mg/dL [facility] Glucose comment 1 Glu2: RN/MD Notified [facility] Blood 02/12/2022 11:5 8 AM CDT 02/12/2022 11:58 AM CDT us Uyen Gleason MD LAB POCT ORDERABLE S - DEVICE Final Result Performing Organization Address City/[facility]/ZIP Co de Phone Number [facility] Department [place] [address] * Tacrolimus level trough (02/12/2022 9:01 AM CDT) Tacrolimus trough 1.0 ng/mL [facility] Comment: Interpretive Data Testing performed by liquid chromatography-tandem mass spectrometry. ??Therapeutic concentrations vary depending on type of transplanted organ and time elapsed since transplant. ??Typical trough concentrations range from 5-15 ng/mL. ??This test was developed and its performance characteristics determined by the [facility] consistent with CLIA requirements. ??This test has not been cleared or approved by the US Food and Drug administration. ??Current interpretive data last reviewed 2020. Blood 02/12/2022 9:01 AM CDT 02/12/2022 9:21 AM CDT Sarbjit Guy MD LAB BLOOD ORDERABL ES Final Result Performing Organization Address [facility] de Phone Number [facility] Department [place] [address] * (ABNORMAL) Voriconazole, serum (02/12/2022 9:01 AM CDT) Voriconazole, trough <0.1(L) 1.0 - 5.5 mcg/mL [facility] Comment: Repeated and verified. This test was developed and its performance characteristics determined by [facility] in a manner consistent with CLIA requirements. ??This test has not been cleared or approved by the U.S. Food and Drug Administration. Testing performed by: [facility], [facility], [place]., [address] Blood 02/12/2022 9:01 AM CDT 02/12/2022 9:33 AM CDT us Sarbjit Guy MD LAB BLOOD ORDERABL ES Final Result Performing Organization Address [facility] Co de Phone Number [facility] [place] [address] * (ABNORMAL) POCT glucose (02/12/2022 8:48 AM CDT) Glucose, POC 342(H) 70 - 199 mg/dL [facility] Blood 02/12/2022 8:48 AM CDT 02/12/2022 8:48 AM CDT Uyen Gleason MD LAB POCT ORDERABLE S - DEVICE Final Result [facility] Department [place] [address] * Lipid panel (02/12/2022 6:42 AM CDT) Pathologist [facility] Cholesterol 142 30 - 199 mg/dL [facility] Comment: [...] Data was last revised on 2018. Triglycerides 95 <=149 mg/dL [facility] Comment: Interpretive Data [...] Data was last revised on 2018. HDL 44 >=40 mg/dL [facility] Comment: Interpretive Data Ages < or [...] was last revised on 2018. LDL, calculated 79 <=129 mg/dL [facility] Comment: Interpretive Data Ages < or [...] was last revised on 2018. Non-HDL Cholesterol 98 mg/dL [facility] Comment: Interpretive Data Ages < or [...] last revised on 2018. Chol/HDL ratio 3 [facility] Blood 02/12/2022 6:42 AM CDT 02/12/2022 6:57 AM CDT us Uyen Gleason MD LAB BLOOD ORDERABL ES Final Result [facility] Department [place] [address] * (ABNORMAL) Hemoglobin A1c (02/12/2022 6:42 AM CDT) Hgb A1C 8.5(H) 4.0 - 5.6 % [facility] Estimated Average Glucose 197 mg/dL [facility] Comment: The ADA recommends reporting an estimated Average Glucose (eAG) with all Hemoglobin A1c results using the equation derived from a study of 507 normal and diabetic adults. ??Minority populations were underrepresented and children were not included. ?? (Diabetes Care 2020; 43(S1): S66-S76). ??The eAG is not equivalent to a fasting glucose. Blood 02/12/2022 6:42 AM CDT 02/12/2022 7:10 AM CDT us Uyen Gleason MD LAB BLOOD ORDERABL ES Final Result Performing Organization Address [facility]/ZIP Co de Phone Number [facility] Department [place] [address] * eGFR (02/12/2022 6:42 AM CDT) eGFR >90 90 - 130 mL/min/1. 73 m2 [facility] Comment: Interpretive Data Reference Interval Normal [...] interpretive data was last reviewed 2021. Blood 02/12/2022 6:42 AM CDT 02/12/2022 6:57 AM CDT us Moody Barahona MD LAB BLOOD ORDERA BLES Final Result Performing Organization Address [facility]/ZIP Co de Phone Number [facility] Department [place] [address] * (ABNORMAL) Manual Differential (02/12/2022 6:42 AM CDT) Differential Manual [facility] Cells Counted 115 [facility] Neutrophil abs 11.9(H) 1.7 - 6.5 K/cumm [facility] Imm gran abs 0.0 0.0 - 0.1 K/cumm [facility] Lymphocyte abs 0.5(L) 0.8 - 3.3 K/cumm [facility] Monocyte abs 0.0(L) 0.2 - 0.8 K/cumm [facility] Neutrophil pct 95.7 % [facility] Comment: Interpretive Data Percent cell count reference ranges are not reported, since discordance with absolute values may lead to misinterpretation of CBC data. Current Interpretive Data was last revised on 2018. Lymphocyte pct 4.3 % [facility] Comment: Interpretive Data Percent cell count reference ranges are not reported, since discordance with absolute values may lead to misinterpretation of CBC data. Current Interpretive Data was last revised on 2018. RBC morphology Present(A) [facility] Anisocytosis Marked(A) [facility] Macrocytes > 15/HPF(A) [facility] Platelet estimate Adequate [facility] Blood 02/12/2022 6:42 AM CDT 02/12/2022 6:57 AM CDT [facility] Floyd Barahona MD LAB BLOOD ORDERA BLES Edited Result - [facility] Department [place] [address] * (ABNORMAL) CBC without differential (02/12/2022 6:42 AM CDT) WBC 12.4(H) 3.8 - 9.9 K/cumm [facility] Hgb 13.5 13.0 - 17.5 g/dL [facility] Hct 40.1 38.9 - 50.3 % [facility] Plt 333 150 - 400 K/cumm [facility] MPV 10.2 9.1 - 12.3 fL [facility] RBC 3.92(L) 4.30 - 5.80 M/cumm [facility] MCV 102.3(H) 81.3 - 96.4 fL [facility] MCH 34.4(H) 27.1 - 33.3 pg [facility] MCHC 33.7 32.3 - 35.7 g/dL [facility] RDW CV 13.8 11.1 - 14.9 % [facility] RDW SD 51.8(H) 35.7 - 48.1 fL [facility] NRBC abs 0.00 0.00 - 0.01 K/cumm [facility] Blood 02/12/2022 6:42 AM CDT 02/12/2022 6:57 AM CDT [facility] BLOOD ORDERA BLES Final Result Performing Organization Address [facility] de Phone Number [facility] Department [place] [address] * Tacrolimus level random (02/12/2022 6:42 AM CDT) Pathologist [facility] Tacrolimus random 1.2 ng/mL [facility] Comment: Interpretive Data Testing performed by liquid chromatography-tandem mass spectrometry. ??Therapeutic concentrations vary depending on type of transplanted organ and time elapsed since transplant. ??Typical trough concentrations range from 5-15 ng/mL. ??This test was developed and its performance characteristics determined by the [facility] consistent with CLIA requirements. ??This test has not been cleared or approved by the US Food and Drug administration. ??Current interpretive data last reviewed 2020. Blood 02/12/2022 6:42 AM CDT 02/12/2022 6:57 AM CDT [facility] LAB BLOOD ORDERA BLES Final Result Performing Organization Address [facility]/ZIP Co de Phone Number [facility] Department [place] [address] * (ABNORMAL) Fibrinogen (02/12/2022 6:42 AM CDT) Fibrinogen 939(H) 170 - 400 mg/dL [facility] Blood 02/12/2022 6:42 AM CDT 02/12/2022 7:00 AM CDT Moody Barahona MD LAB BLOOD ORDERA BLES Final Result Performing Organization Address [facility] [place] [address] * Type and screen (02/12/2022 6:42 AM CDT) Ursula, indirect Negative [facility] ABO Rh A Positive [facility] Blood 02/12/2022 6:42 AM CDT 02/12/2022 7:11 AM CDT Narrative [facility] - 02/12/2022 8:05 AM CDT Has the patient had Daratumumab or Isatuximab in the past 6 months?->Unknown Moody Barahona MD LAB BLOOD BANK T EST ORDERABLES Final Result Performing Organization Address [facility] Co de Phone Number [facility] [place] [address] * aPTT (02/12/2022 6:42 AM CDT) aPTT 34 27 - 37 sec [facility] Comment: Interpretive Data Therapeutic heparin range: 60.0 - 94.0 seconds. Based on correlation with therapeutic heparin activity range of 0.3-0.7 Units/mL. Current interpretive data was last revised on 2021. Blood 02/12/2022 6:42 AM CDT 02/12/2022 7:00 AM CDT Moody Barahona MD LAB BLOOD ORDERA BLES Final Result Performing Organization Address [facility] Co de Phone Number [facility] [place] [address] * Protime-INR (02/12/2022 6:42 AM CDT) PT 12.2 9.5 - 13.6 sec [facility] INR 1.1 0.9 - 1.2 [facility] Comment: Interpretive data Oral anticoagulant therapeutic ranges: Venous thromboembolism prophylaxis or treatment: 2.0-3.0 CARDIOLOGY Standard range: 2.0-3.0 High-intensity range: 2.5-3.5 Refer to indication-specific guidelines for appropriate target ranges for prosthetic heart valve replacement. Current interpretive data was last revised on 2019. Blood 02/12/2022 6:42 AM CDT 02/12/2022 7:00 AM CDT Moody Barahona MD LAB BLOOD ORDERA BLES Final Result Performing Organization Address [facility] Co de Phone Number [facility] [place] [address] * Uric acid (02/12/2022 6:42 AM CDT) Uric acid 5.2 3.0 - 8.0 mg/dL [facility] Blood 02/12/2022 6:42 AM CDT 02/12/2022 6:57 AM CDT Moody Barahona MD LAB BLOOD ORDERA BLES Final Result Performing Organization Address [facility] Co de Phone Number [facility] Department [place] [address] * (ABNORMAL) Lactate dehydrogenase (LD) (02/12/2022 6:42 AM CDT) Lactate dehydrogenase (LDH) 303(H) 100 - 250 Units/L [facility] Blood 02/12/2022 6:42 AM CDT 02/12/2022 6:57 AM CDT Moody Barahona MD LAB BLOOD ORDERA BLES Final Result [facility] Department [place] [address] * Phosphorus (02/12/2022 6:42 AM CDT) Pathologist [facility] Phosphorus, pl 3.4 2.3 - 4.5 mg/dL [facility] Blood 02/12/2022 6:42 AM CDT 02/12/2022 6:57 AM CDT Moody Barahona MD LAB BLOOD ORDERA BLES Final Result Performing Organization Address [facility]/ZIP Co de Phone Number [facility] [place] [address] * Magnesium (02/12/2022 6:42 AM CDT) Pathologist [facility] Magnesium 1.5 1.4 - 2.5 mg/dL [facility] Blood 02/12/2022 6:42 AM CDT 02/12/2022 6:57 AM CDT Moody Barahona MD LAB BLOOD ORDERA BLES Final Result [facility] Department [place] [address] * (ABNORMAL) Comprehensive metabolic panel (02/12/2022 6:42 AM CDT) Sodium 134(L) 135 - 145 mmol/L [facility] Potassium, pl 4.7 3.3 - 4.9 mmol/L [facility] Chloride 96(L) 97 - 110 mmol/L [facility] CO2 24 22 - 32 mmol/L [facility] Anion gap 14 2 - 15 mmol/L [facility] BUN 10 8 - 25 mg/dL [facility] Creatinine 0.70(L) 0.80 - 1.30 mg/dL [facility] Glucose 257(H) 70 - 199 mg/dL [facility] Comment: Interpretive Data Fasting glucose >/= [...] Current interpretive data was last revised 2017. Calcium 9.1 8.5 - 10.3 mg/dL [facility] Bilirubin, total 0.4 0.1 - 1.2 mg/dL [facility] Protein, pl 8.0 6.5 - 8.5 g/dL [facility] Albumin 3.5 3.5 - 5.0 g/dL [facility] Alk phos 288(H) 40 - 130 Units/L [facility] ALT 32 7 - 55 Units/L [facility] AST 41 10 - 50 Units/L [facility] Blood 02/12/2022 6:42 AM CDT 02/12/2022 6:57 AM CDT Moody Barahona MD LAB BLOOD ORDERA BLES Final Result [facility] Department [place] [address] * X-ray chest 1 view (Portable) (02/12/2022 5:59 AM CDT) Anatomical Region Laterality Modality Body, Chest N/A Computed Radiogr aphy 02/12/2022 9:19 AM CDT Impressions 02/12/2022 9:19 AM CDT Comparison 02/12/2020 2:24 PM. Marked underlying changes of emphysema again noted. Increase patchy right lateral midlung opacity and persistent opacity overlying the right infrahilar area noted, concerning for pneumonia or aspiration. The left lung is clear. No pneumothorax or pleural effusion seen. Heart size and mediastinal contour remain within normal limits. Electronically signed by: Derrell Ochoa M.D. Narrative 02/12/2022 9:19 AM CDT EXAMINATION: 1 view chest radiograph Procedure Note Derrell Ochoa MD - 02/12/2022 EXAMINATION: 1 view chest radiograph IMPRESSION: Comparison 02/12/2020 2:24 PM. Marked underlying changes of emphysema again noted. Increase patchy right lateral midlung opacity and persistent opacity overlying the right infrahilar area noted, concerning for pneumonia or aspiration. The left lung is clear. No pneumothorax or pleural effusion seen. Heart size and mediastinal contour remain within normal limits. Electronically signed by: Derrell Ochoa M.D. Moody Jacky Barahona MD IMG XR PROCEDURE S Final Result * ECG 12 lead (02/12/2022 5:48 AM CDT) Ventricular Rate EKG/Min 53 BPM [facility] Atrial Rate 53 BPM [facility] NE-Interval (MSEC) 136 ms [facility] QRS-Interval (MSEC) 92 ms [facility] QT-Interval (MSEC) 458 ms [facility] QTc 429 ms [facility] P [place] 56 degrees [facility] R [place] 79 degrees [facility] T [place] 81 degrees [facility] Diagnosis Sinus bradycardia Anterior infarct , age undetermined Abnormal ECG Confirmed by NGOZI MILES M.D ([id number]) on 02/12/2022 1:37:14 PM [facility] 02/12/2022 5:48 AM CDT 02/12/2022 1:37 PM CDT Moody Barahona MD ECG ORDERABLES Final Result Performing Organization Address [facility] Co de Phone Number [facility] * POCT glucose (02/12/2022 4:17 AM CDT) Glucose, POC 136 70 - 199 mg/dL [facility] Blood 02/12/2022 4:17 AM CDT 02/12/2022 4:17 AM CDT Uyen Gleason MD LAB POCT ORDERABLE S - DEVICE Final Result Performing Organization Address [facility] de Phone Number [facility] [place] [address] * Troponin I high-sensitivity 6-hour (02/12/2022 2:08 AM CDT) Trop I hs <4 <=35 ng/L [facility] Comment: Interpretive Data For further hscTnI resources including the diagnostic algorithm and an aid in interpretation, copy and paste this link: https://bjhlab.testcatalog.org/show/[email or web address] Current Interpretive Data last revised 2020. Trop I hs delta 0 ng/L [facility] Trop I hs interp Insignificant [facility] Blood 02/12/2022 2:08 AM CDT 02/12/2022 2:28 AM CDT Kirt Vann MD LAB BLOOD ORDERABLES Final Resul t Performing Organization Address [facility] Co de Phone Number [facility] [place] [address] * CT Chest PE (CTA) W Contrast (02/12/2022 1:00 AM CDT) Anatomical Region Laterality Modality Body N/A Computed Tomogra phy 02/12/2022 1:23 AM CDT Impressions 02/12/2022 9:22 AM CDT 1. ??No acute pulmonary embolism. 2. ??New indeterminate subcentimeter right middle lobe nodule could be neoplastic, with stable prominent right supraclavicular lymph nodes. Recommend short-term interval follow-up. 3. ??Ground glass opacification in the right upper lobe and tree-in-bud nodularity is noted in the bilateral lungs which are favored to be infectious or inflammatory in etiology. Dictated by: Zohaib López M.D. The radiology attending physician has personally reviewed this study, and had reviewed and/or edited this written report and agrees with it. Electronically signed by: Sonia Swann M.D. Narrative 02/12/2022 9:22 AM CDT EXAMINATION: CT CHEST PE (CTA) W CONTRAST HISTORY: 56-year-old male with chest pain and hemoptysis. TECHNIQUE: Computed tomographic images were acquired using a chest angiographic protocol optimized for pulmonary embolism. ??Contrast enhanced transaxial images were obtained following the intravenous administration of 95 ml of nonionic contrast. ??Multiplanar reformatted images and three-dimensional images were obtained on the 3-D workstation and sent to the PACS archival system. ?? COMPARISON: CT of the chest dated 09/07/2021 FINDINGS: No acute pulmonary embolism. Decreased areas of tree-in-bud nodularity within the bilateral lungs. ??New focus of groundglass opacification within the right upper lobe. ??Emphysematous changes are seen. ??No effusion or pneumothorax. ??New 0.6 cm spiculated nodule within the right middle lobe (series 7, image 73). ??Stable 0.5 cm right lower lobe pulmonary nodule (series 7, image 100). The heart size is normal without pericardial effusion. The thoracic aorta is normal in course and caliber. The thyroid is normal. Stable prominent ot enlarged supraclavicular lymph nodes. There is no axillary, mediastinal or hilar lymphadenopathy. Cholelithiasis without cholecystitis. ??The stomach is distended and filled with debris. ??Otherwise, the visualized upper abdomen is normal. 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 The bones show no suspicious osseous lesions. CT imaging evidence of right heart strain: No Procedure Note Sonia Swann MD - 02/12/2022 EXAMINATION: CT CHEST PE (CTA) W CONTRAST HISTORY: 56-year-old male with chest pain and hemoptysis. TECHNIQUE: Computed tomographic images were acquired using a chest angiographic protocol optimized for pulmonary embolism. Contrast enhanced transaxial images were obtained following the intravenous administration of 95 ml of nonionic contrast. Multiplanar reformatted images and three-dimensional images were obtained on the 3-D workstation and sent to the PACS archival system. COMPARISON: CT of the chest dated 09/07/2021 FINDINGS: No acute pulmonary embolism. Decreased areas of tree-in-bud nodularity within the bilateral lungs. New focus of groundglass opacification within the right upper lobe. Emphysematous changes are seen. No effusion or pneumothorax. New 0.6 cm spiculated nodule within the right middle lobe (series 7, image 73). Stable 0.5 cm right lower lobe pulmonary nodule (series 7, image 100). The heart size is normal without pericardial effusion. The thoracic aorta is normal in course and caliber. The thyroid is normal. Stable prominent ot enlarged supraclavicular lymph nodes. There is no axillary, mediastinal or hilar lymphadenopathy. Cholelithiasis without cholecystitis. The stomach is distended and filled with debris. Otherwise, the visualized upper abdomen is normal. 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 The bones show no suspicious osseous lesions. CT imaging evidence of right heart strain: No IMPRESSION: 1. No acute pulmonary embolism. 2. New indeterminate subcentimeter right middle lobe nodule could be neoplastic, with stable prominent right supraclavicular lymph nodes. Recommend short-term interval follow-up. 3. Ground glass opacification in the right upper lobe and tree-in-bud nodularity is noted in the bilateral lungs which are favored to be infectious or inflammatory in etiology. Dictated by: Zohaib López M.D. The radiology attending physician has personally reviewed this study, and had reviewed and/or edited this written report and agrees with it. Electronically signed by: Sonia Swann M.D. Luke Atkins MD IMG CT PROCEDURES Fin al Result * Troponin I high-sensitivity 4-hour (02/11/2022 11:58 PM CDT) Pathologist [facility] Trop I hs <4 <=35 ng/L [facility] Comment: Interpretive Data For further hscTnI resources including the diagnostic algorithm and an aid in interpretation, copy and paste this link: https://bjhlab.testcatalog.org/show/[email or web address] Current Interpretive Data last revised 2020. Trop I hs delta 0 ng/L [facility] Trop I hs interp Insignificant [facility] Blood 02/11/2022 11:5 8 PM CDT 02/12/2022 12:05 AM CDT Kirt Vann MD LAB BLOOD ORDERABLES Final Resul t [facility] Department [place] [address] * Influenza A/B, RSV, and COVID-19 PCR Nasopharyngeal (02/11/2022 11:41 PM CDT) [facility] COVID-19 RNA Negative Negative [facility] Influenza A RNA Negative Negative [facility] Influenza B RNA Negative Negative [facility] RSV RNA Negative Negative [facility] Comment: Interpretive data: Testing performed by [facility] ([phone]). This test is performed using the [employer] Xpert Xpress CoV-2/Flu/RSV plus assay. This is a multiplex, real-time reverse transcriptase PCR assay intended for the qualitative detection of nucleic acid from SARS-CoV-2, influenza A, influenza B, and respiratory syncytial virus. This assay has been reviewed by the FDA for Emergency Use Authorization (EUA). The performance characteristics have been verified by the [facility]. Results must be considered in the clinical context, and a negative result does not rule out infection. Interpretive Data last revised 2021. First COVID-19 test? No [facility] Employeed in healthcare? No [facility] Group care resident? No [facility] Hospitalized? No [facility] Is patient in ICU? No [facility] Symptomatic as defined by CDC? No [facility] Nasopharyngeal 02/11/2022 11 :41 PM CDT 02/12/2022 12:02 AM CDT Narrative [facility] - 02/12/2022 12:46 AM CDT Reason for testing?->Bed placement or semi-private room Known exposure to confirmed or suspected COVID-19 case?->No Luke Atkins MD LAB MICROBIOLOGY - GE NERAL ORDERABLES Final Result [facility] Department [place] [address] * POCT glucose (02/11/2022 10:37 PM CDT) Glucose, POC 118 70 - 199 mg/dL [facility] Blood 02/11/2022 10:3 7 PM CDT 02/11/2022 10:37 PM CDT Result [facility] Notinfile Unknown LAB POCT ORDERABLES - DEVICE F inal Result Performing Organization Address [facility]/ZIP Co de Phone Number [facility] Department [place] [address] * Troponin I high-sensitivity 2-hour (02/11/2022 10:33 PM CDT) Trop I hs <4 <=35 ng/L [facility] Comment: Interpretive Data For further hscTnI resources including the diagnostic algorithm and an aid in interpretation, copy and paste this link: https://bjhlab.testcatalog.org/show/[email or web address] Current Interpretive Data last revised 2020. Trop I hs delta 0 ng/L [facility] Trop I hs interp Insignificant [facility] Blood 02/11/2022 10:3 3 PM CDT 02/11/2022 10:55 PM CDT us Kirt Vann MD LAB BLOOD ORDERABLES Final Resul t [facility] Department [place] [address] * XR Chest Pa Lateral 2 Views [...] Electronically signed by: Bladimir Vega III, M.D. us Uyen Gleason MD IMG XR PROCEDURES Final Result * (ABNORMAL) Pro B-type natriuretic peptide (02/11/2022 8:16 PM CDT) NT-proBNP 455(H) <=300 pg/mL [facility] Comment: Interpretive Comments: A. Dyspnea in Acute [...] Interpretive Data Last Revised Date: 2018. Blood 02/11/2022 8:16 PM CDT 02/11/2022 8:30 PM CDT us Notinfile Unknown LAB BLOOD ORDERABLES Final Res ult [facility] Department [place] [address] * eGFR (02/11/2022 8:16 PM CDT) eGFR >90 90 - 130 mL/min/1. [...] interpretive data was last reviewed 2021. Blood 02/11/2022 8:16 PM CDT 02/11/2022 8:30 PM CDT us Uyen Gleason MD LAB BLOOD ORDERABL ES Final Result [facility] Department [place] [address] * (ABNORMAL) Differential, auto (02/11/2022 8:16 PM CDT) Neutrophil abs 8.8(H) 1.7 - 6.5 K/cumm [facility] Imm gran abs 0.1 0.0 - 0.1 K[facility]umm [facility] Lymphocyte abs 5.7(H) 0.8 - 3.3 K/cumm [facility] Monocyte abs 1.0(H) 0.2 - 0.8 K/cumm [facility] Eosinophil abs 0.3 0.0 - 0.5 K/cumm [facility] Basophil abs 0.1 0.0 - 0.1 K/cumm [facility] Neutrophil pct 55.3 % [facility] Comment: Confirmed by smear review Interpretive Data Percent cell count reference ranges are not reported, since discordance with absolute values may lead to misinterpretation of CBC data. Current Interpretive Data was last revised on 2018. Imm gran pct 0.4 % [facility] Comment: Interpretive Data Percent cell count reference ranges are not reported, since discordance with absolute values may lead to misinterpretation of CBC data. Current Interpretive Data was last revised on 2018. Lymphocyte pct 35.5 % [facility] Comment: Interpretive Data Percent cell count reference ranges are not reported, since discordance with absolute values may lead to misinterpretation of CBC data. Current Interpretive Data was last revised on 2018. Monocyte pct 6.2 % [facility] Comment: Interpretive Data Percent cell count reference ranges are not reported, since discordance with absolute values may lead to misinterpretation of CBC data. Current Interpretive Data was last revised on 2018. Eosinophil pct 2.0 % [facility] Comment: Interpretive Data Percent cell count reference ranges are not reported, since discordance with absolute values may lead to misinterpretation of CBC data. Current Interpretive Data was last revised on 2018. Basophil pct 0.6 % [facility] Comment: Interpretive Data Percent cell count reference ranges are not reported, since discordance with absolute values may lead to misinterpretation of CBC data. Current Interpretive Data was last revised on 2018. Blood 02/11/2022 8:16 PM CDT 02/11/2022 8:29 PM CDT Uyen Gleason MD LAB BLOOD ORDERABL ES Final Result Performing Organization Address [facility] de Phone Number [facility] [place] [address] * Troponin I high-sensitivity series (baseline, 2hr, 4hr, 6hr) (02/11/2022 8:16 PM CDT) Trop I hs <4 <=35 ng/L [facility] Comment: Interpretive Data For further hscTnI resources including the diagnostic algorithm and an aid in interpretation, copy and paste this link: https://bjhlab.testcatalog.org/show/[email or web address] Current Interpretive Data last revised 2020. Blood 02/11/2022 8:16 PM CDT 02/11/2022 8:30 PM CDT Uyen Gleason MD LAB BLOOD ORDERABL ES Final Result Performing Organization Address [facility] Co de Phone Number [facility] [place] [address] * (ABNORMAL) Comprehensive metabolic panel (02/11/2022 8:16 PM CDT) Sodium 137 135 - 145 mmol/L [facility] Potassium, pl 5.2(H) 3.3 - 4.9 mmol/L [facility] Chloride 101 97 - 110 mmol/L [facility] CO2 25 22 - 32 mmol/L [facility] Anion gap 11 2 - 15 mmol/L [facility] BUN 9 8 - 25 mg/dL [facility] Creatinine 0.84 0.80 - 1.30 mg/dL [facility] Glucose 123 70 - 199 mg/dL [facility] Comment: Interpretive Data Fasting glucose >/= [...] Current interpretive data was last revised 2017. Calcium 10.0 8.5 - 10.3 mg/dL [facility] Bilirubin, total 0.6 0.1 - 1.2 mg/dL [facility] Protein, pl 9.0(H) 6.5 - 8.5 g/dL [facility] Albumin 4.1 3.5 - 5.0 g/dL [facility] Alk phos 294(H) 40 - 130 Units/L [facility] ALT 33 7 - 55 Units/L [facility] AST 37 10 - 50 Units/L [facility] Blood 02/11/2022 8:16 PM CDT 02/11/2022 8:30 PM CDT us Uyen Gleason MD LAB BLOOD ORDERABL ES Final Result [facility] [place] [address] * (ABNORMAL) CBC with auto differential (02/11/2022 8:16 PM CDT) WBC 16.0(H) 3.8 - 9.9 K/cumm [facility] Hgb 15.4 13.0 - 17.5 g/dL [facility] Hct 45.7 38.9 - 50.3 % [facility] Plt 372 150 - 400 K/cumm [facility] MPV 10.1 9.1 - 12.3 fL [facility] RBC 4.47 4.30 - 5.80 M/cumm [facility] MCV 102.2(H) 81.3 - 96.4 fL [facility] MCH 34.5(H) 27.1 - 33.3 pg [facility] MCHC 33.7 32.3 - 35.7 g/dL [facility] RDW CV 13.6 11.1 - 14.9 % [facility] RDW SD 51.4(H) 35.7 - 48.1 fL [facility] NRBC abs 0.00 0.00 - 0.01 K/cumm [facility] Blood (Blood, Venous) 02/11/2022 8:16 PM CDT 02/11/2022 8:29 PM CDT us Uyen Gleason MD LAB BLOOD ORDERABL ES Final Result [facility] Department [place] [address] * ECG 12-LEAD (02/11/2022 7:20 PM CDT) Narrative [facility] - 02/11/2022 7:20 PM CDT Tirso Louise MD ? 02/11/2022 ??7:22 PM ECG 12 lead Date/Time: 02/11/2022 7:20 PM Performed by: Tirso Louise MD Authorized by: Kirt Riley MD Quality: ??Tracing quality: ??Limited by artifact Rate: ??ECG rate: ??89 ??ECG rate assessment: normal ?? Rhythm: ??Rhythm: sinus rhythm ?? Ectopy: ??Ectopy: none ?? QRS: ??QRS axis: ??Normal Conduction: ??Conduction: normal ?? ST segments: ??ST segments: ??Normal T waves: ??T waves: non-specific ?? Other findings: ??Other findings: BHARAT ?? Previous ECG: ??Previous ECG: ??Compared to current ??Date of previous ECG: ??09/07/2021 Interpretation: ??Interpretation: No acute injury pattern ?? Recommended Follow-up: ??Recommended follow up: further workup in the ED ?? Procedure Note Tirso Louise MD - 02/11/2022 7:20 PM CDT Procedure ECG 12 lead Date/Time: 02/11/2022 7:20 PM Performed by: Tirso Louise MD Authorized by: Kirt Riley MD Quality: Tracing quality: Limited by artifact Rate: ECG rate: 89 ECG rate assessment: normal Rhythm: Rhythm: sinus rhythm Ectopy: Ectopy: none QRS: QRS axis: Normal Conduction: Conduction: normal ST segments: ST segments: Normal T waves: T waves: non-specific Other findings: Other findings: BHARAT Previous ECG: Previous ECG: Compared to current Date of previous EC09/07/2021 Interpretation: Interpretation: No acute injury pattern Recommended Follow-up: Recommended follow up: further workup in the ED Tirso Louise MD 02/11/221921 us Kirt Riley MD ECG ORDERABLES Final Resu lt Performing Organization Address [facility]/ZIP Co de Phone Number [facility] * POCT glucose (02/11/2022 7:18 PM CDT) Glucose, POC 124 70 - 199 mg/dL [facility] Blood 02/11/2022 7:18 PM CDT 02/11/2022 7:18 PM CDT us Notinfile Unknown LAB POCT ORDERABLES - DEVICE F inal Result Performing Organization Address [facility] Co de Phone Number [facility] Department [place] [address] documented in this encounter Visit Diagnoses Diagnosis COPD exacerbation (HCC) Obstructive chronic bronchitis with exacerbation Hemoptysis Shortness of breath Pneumonia due to infectious organism, unspecified laterality, unspecified part of lung Type 2 diabetes mellitus with 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) ([facility]) Pure hypercholesterolemia Type 2 diabetes mellitus (HCC) DVT (deep venous thrombosis) (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) Peripheral neuropathy Unspecified hereditary and idiopathic peripheral neuropathy CAP (community acquired pneumonia) Pneumonia, organism unspecified documented in this encounter Admitting Diagnoses Diagnosis COPD exacerbation (HCC) Obstructive chronic bronchitis with exacerbation documented in this encounter Administered Medications Inactive Administered Medications - up to 3 most recent administrations Medication Order MAR Action Action Date Dose Rate Site acetaminophen (TYLENOL) tablet 650 mg 650 mg, oral, Every 4 hours PRN, blood product administration, Starting on Sat02/12/22 at 0551, Indications: Prophylaxis Transfusion ReactionIndications:Prophylaxis Transfusion Reaction acetaminophen (TYLENOL) tablet 650 mg 650 mg, oral, Every 6 hours PRN, fever, Starting on Sat02/12/22 at 0551, Indications: FeverIndications:Fever acyclovir (ZOVIRAX) tablet 400 mg 400 mg, oral, Daily, First dose on Sat02/12/22 at 0900, Indications: Prophylaxis, MedicalIndications:Prophylaxis, Medical Given 02/14/2022 9:45 AM CDT 400 mg Given 02/13/2022 7:49 AM CDT 400 mg Given 02/12/2022 9:02 AM CDT 400 mg albuterol 2.5 mg/0.5 mL nebulizer solution 10 mg 10 mg, nebulization, Once (respiratory coordinator), On Sat02/11/22 at 2331, For 1 dose Given 02/11/2022 11:32 PM CDT 10 mg albuterol 2.5 mg/0.5 mL nebulizer solution 2.5 mg 2.5 mg, nebulization, Every 4 hours (respiratory coordinator), First dose on Sat02/12/22 at 0148 Given 02/12/2022 2:09 AM CDT 2.5 mg albuterol 2.5 mg/0.5 mL nebulizer solution 2.5 mg 2.5 mg, nebulization, Every 4 hours PRN (respiratory coordinator), wheezing, Starting on Sat02/12/22 at 0212 Given 02/13/2022 10:00 PM CDT 2.5 mg Given 02/13/2022 3:50 AM CDT 2.5 mg Given 02/12/2022 5:14 PM CDT 2.5 mg aluminum & magnesium sctuogoqg-zfgrlesaqqn-rmfalagkumejurv-lidocain e (MAGIC MOUTHWASH) suspension 1-1-1 15 mL, swish & swallow, 4 times daily PRN, other, mucositis, Starting on Sat02/12/22 at 0551, Indications: Chemotherapy-Induced MucositisIndications:Chemotherapy-Induced Mucositis atorvastatin (LIPITOR) tablet 40 mg 40 mg, oral, Daily, First dose on Sat02/12/22 at 0900 Given 02/14/2022 9:46 AM CDT 40 mg Given 02/13/2022 7:48 AM CDT 40 mg Given 02/12/2022 9:02 AM CDT 40 mg azithromycin (ZITHROMAX) 500 mg/255 mL in sodium chloride 0.9% (premix) 500 mg 500 mg, intravenous, at 255 mL/hr, Administer over 60 Minutes, Once, On Sat02/11/22 at 2309, For 1 dose, Indications: COPD ExacerbationIndications:COPD Exacerbation New Bag 02/11/2022 11:38 PM CDT 500 mg 255 mL/hr azithromycin (ZITHROMAX) tablet 250 mg 250 mg, oral, Daily, First dose on Sat02/12/22 at 0900, For 4 doses, Indications: COPD ExacerbationIndications:COPD Exacerbation Given 02/14/2022 9:46 AM CDT 250 mg Given 02/13/2022 7:48 AM CDT 250 mg Given 02/12/2022 9:02 AM CDT 250 mg bacitracin-polymyxin B (POLYSPORIN) 500-10,000 unit/gram ointment tube 1 application 1 application (deactivated), topical, Every 4 hours PRN, wound care, Starting on Sat02/12/22 at 0551, Apply to affected area: other, Indications: Minor Bacterial Skin InfectionsIndications:Minor Bacterial Skin Infections camphor-menthoL (SARNA) 0.5-0.5 % lotion topical, Every 2 hours PRN, itching, Starting on Sat02/12/22 at 0551, Apply to affected area: other, Indications: Pruritus of SkinIndications:Pruritus of Skin cefepime (MAXIPIME) 1,000 mg/10 mL in sterile water (premix) 1,000 mg 1,000 mg, intravenous, at 20 mL/hr, Administer over 30 Minutes, Once as needed, for suspicion of sepsis, Starting on Sat02/12/22 at 0552, For 1 dose, Administer for temperature of 38.3 C or greater, 38 C for at least 1 hour, or for any acute change in condition with high suspicion of sepsis in the absence of fever (SBP/DBP reduction of 20 mmHg or more, confusion, hypothermia with temp of 35 C, and not receiving any other IV antibiotics., Indications: Neutropenic FeverIndications:Neutropenic Fever cefTRIAXone (ROCEPHIN) 1,000 mg/10 mL in sterile water (premix) 1,000 mg 1,000 mg, intravenous, at 600 mL/hr, Administer over 1 Minutes, Every 24 hours scheduled, First dose on Sat02/12/22 at 0149, Indications: Pneumonia, Community AcquiredIndications:Pneumonia, Community Acquired Given 02/14/2022 2:22 AM CDT 1,000 mg 600 mL/hr Given 02/13/2022 12:47 AM CDT 1,000 mg 600 mL/hr Given 02/12/2022 2:07 AM CDT 1,000 mg 600 mL/hr dextrose (D10W) 10% bolus 250 mL 250 mL, intravenous, at 1,000 mL/hr, Administer over 15 Minutes, Every 15 min PRN, blood glucose less than 70 mg/dL and UNABLE to swallow/take PO glucose/juice., Starting on Sat02/12/22 at 0600, After treatment for hypoglycemia, recheck BG followed [...] glucose less than 70 mg/dL, Starting on Sat02/12/22 at 0600, If patient is alert and able to [...] Call MD for each episode of hypoglycemia. [employer]IDENT [employer] STATES GLUTOSE-15 CONTAINS GLUCOSE 40% W/W (50% W/V), Indications: hypoglycemic disorderIndications:hypoglycemic disorder kwadviwxwoc-hayqxyckw-mjmieeaw (TRELEGY ELLIPTA) 100-62.5-25 mcg inhaler 1 puff 1 puff, inhalation, Daily (respiratory coordinator), First dose on Sat02/14/22 at 0830, Rinse mouth with water after use. Do not swallow. Given 02/14/2022 12:45 PM CDT 1 puf f gabapentin (NEURONTIN) capsule 300 mg 300 mg, oral, 3 times daily, First dose on Sat02/12/22 at 0900, Do not crush, break, or open. Given 02/14/2022 3:27 PM CDT 300 mg Given 02/14/2022 9:46 AM CDT 300 mg Given 02/13/2022 8:21 PM CDT 300 mg glucagon injection 1 mg 1 mg, intramuscular, Every 30 min PRN, low blood sugar, blood glucose less than 70 mg/dL AND no IV access AND unable to take PO glucose/juice., Starting on Sat02/12/22 at 0600, After Glucagon is administered, position patient on [...] line care, with each use, Starting on Sat02/12/22 at 0551, Do not use with Groshong catheter. Do not use with peripheral IV Flush volume based on line type, size, and protocol., Indications: Maintain Patency of Indwelling Vascular CatheterIndications:Maintain Patency of Indwelling Vascular Catheter heparin 10 unit/mL flush 50 Units 50 Units (5 mL), intra-catheter, 2 times daily, First dose on Sat02/12/22 at 0630, Do not use with Groshong catheter. Do not use with peripheral IV., Indications: Maintain Patency of Indwelling Vascular CatheterIndications:Maintain Patency of Indwelling Vascular Catheter insulin glargine (LANTUS, SEMGLEE) 100 unit/mL injection 10 Units 10 Units (rounded from 9.6 Units = 0.15 Units/kg ? 64 kg), subcutaneous, Nightly, First dose on Sat02/12/22 at 2100, Do not hold if NPO. Do not mix with other insulins, Indications: Diabetes MellitusIndications:Diabetes Mellitus Given 02/12/2022 8:33 PM CDT 10 Units Right Lower Abdomen insulin glargine (LANTUS, SEMGLEE) 100 unit/mL injection 15 Units 15 Units, subcutaneous, Nightly, First dose (after last modification) on Sat02/13/22 at 2100, Do not hold if NPO. Do not mix with other insulins, Indications: Diabetes MellitusIndications:Diabetes Mellitus Given 02/13/2022 8:21 PM CDT 15 Units Right Lower Abdomen insulin lispro (HumaLOG, ADMELOG) 100 unit/mL injection 0-10 Units 0-10 Units, subcutaneous, 3 times daily with meals, First dose on Sat02/13/22 at 1845, Blood glucose mg/dL: 149 or less: No [...] NPO Status, Indications: Diabetes MellitusIndications:Diabetes Mellitus Given 02/14/2022 4:59 PM CDT 8 Units Right Lower Abdomen Given 02/14/2022 1:20 PM CDT 6 Units Ri ght Lower Abdomen Given 02/14/2022 9:44 AM CDT 6 Units Ri ght Lower Abdomen insulin lispro (HumaLOG, ADMELOG) 100 unit/mL injection 0-4 Units 0-4 Units, subcutaneous, Nightly, First dose on Sat02/12/22 at 2100, Blood glucose mg/dL: 199 or less: No insulin 200-249: add 1 unit 250-299: add 2 units 300-349: add 3 units and notify physician for adjustment of insulin orders. 350-399: add 4 units and notify physician for adjustment of insulin orders. Over 400: Notify physician for adjustment of insulin orders. Do NOT hold for NPO Status, Indications: Diabetes MellitusIndications:Diabetes Mellitus Given 02/12/2022 8:33 PM CDT 3 Units Right Lower Abdomen insulin lispro (HumaLOG, ADMELOG) 100 unit/mL injection 0-5 Units 0-5 Units, subcutaneous, 3 times daily with meals, First dose on Sat02/12/22 at 0800, Blood glucose mg/dL: 149 or [...] NPO Status, Indications: Diabetes MellitusIndications:Diabetes Mellitus Given 02/13/2022 12:24 PM CDT 1 Units Left Lower Abdomen Given 02/13/2022 7:50 AM CDT 2 Units Le ft Lower Abdomen Given 02/12/2022 5:03 PM CDT 3 Units Ri ght Lower Abdomen insulin lispro (HumaLOG, ADMELOG) 100 unit/mL injection 0-5 Units 0-5 Units, subcutaneous, Nightly, First dose on Sat02/13/22 at 2100, Blood glucose mg/dL: 149 or [...] NPO Status, Indications: Diabetes MellitusIndications:Diabetes Mellitus Given 02/13/2022 10:19 PM CDT 2 Units Left Lower Abdomen insulin lispro (HumaLOG, ADMELOG) 100 unit/mL injection 1 Units 1 Units, subcutaneous, Once, On Sat02/12/22 at 2115, For 1 dose, Indications: HyperglycemiaIndications:Hyp erglycemia Given 02/12/2022 8:33 PM CDT 1 Units Right Lower Abdomen insulin lispro (HumaLOG, ADMELOG) 100 unit/mL injection 3 Units 3 Units (rounded from 3.2 Units = 0.05 Units/kg ? 64 kg), subcutaneous, 3 times daily with meals, First dose on Sat02/12/22 at 0800, If BG greater than or equal to [...] 70 mg/dL., Indications: Diabetes MellitusIndications:Diabetes Mellitus Given 02/14/2022 4:59 PM CDT 3 Units Right Lower Abdomen Given 02/14/2022 1:20 PM CDT 3 Units Ri ght Lower Abdomen Given 02/14/2022 9:45 AM CDT 3 Units Le ft Lower Abdomen insulin lispro (HumaLOG, ADMELOG) 100 unit/mL injection 8 Units 8 Units, subcutaneous, Once, On Sat02/13/22 at 2045, For 1 dose, Indications: HyperglycemiaIndication s:Hyperglycemia Given 02/13/2022 8:22 PM CDT 8 Units Right Lower Abdomen insulin regular (HumuLIN R, NovoLIN R) 100 unit/mL injection 7 Units 7 Units, intravenous, Once, On Sat02/13/22 at 1615, For 1 dose, Indications: HyperglycemiaIndication s:Hyperglycemia Given 02/13/2022 3:45 PM CDT 7 Units ioversoL (OPTIRAY 350) syringe syringe 100 mL 100 mL, intravenous, Once in imaging, contrast, Starting on Sat02/12/22 at 0100, For 1 dose Contrast Given 02/12/2022 1:01 AM CDT 95 mL ipratropium (ATROVENT) 0.02 % nebulizer solution 0.5 mg 0.5 mg, nebulization, Once (respiratory coordinator), On Sat02/11/22 at 2331, For 1 dose Given 02/11/2022 11:32 PM CDT 0.5 mg ipratropium (ATROVENT) 0.02 % nebulizer solution 0.5 mg 0.5 mg, nebulization, Every 4 hours PRN (respiratory coordinator), wheezing, shortness of breath, Starting on Sat02/12/22 at 0210 Given 02/13/2022 10:00 PM CDT 0.5 mg Given 02/13/2022 3:50 AM CDT 0.5 mg Given 02/12/2022 5:14 PM CDT 0.5 mg loperamide (IMODIUM) capsule 2 mg 2 mg, oral, Every 1 hour PRN, diarrhea, after each liquid stool (ensure that at least one C. diff assay is negative prior to initiating), Starting on Sat02/12/22 at 0551, Total loperamide dose should not exceed 16 mg in 24 hours., Indications: diarrheaIndications:diarrhea magnesium sulfate 4 g/100 mL in water (premix) 4 g 4 g, intravenous, Administer over 90 Minutes, Every 4 hours PRN, magnesium replacement, Starting on Sat02/12/22 at 0552, For magnesium level of 1.2-1.5 mg/dL, Indications: hypomagnesemiaIndications:hypomagnesemia magnesium sulfate 6 g in sodium chloride 0.9% 250 mL IVPB 6 g, intravenous, at 131 mL/hr, Administer over 120 Minutes, Every 4 hours PRN, magnesium replacement, Starting on Sat02/12/22 at 0552, For magnesium level less than 1.2 mg/dL and call/notify provider., Indications: hypomagnesemiaIndications:hypomagnesemia montelukast (SINGULAIR) tablet 10 mg 10 mg, oral, Daily, First dose on Sat02/12/22 at 0900 Given 02/14/2022 9:46 AM CDT 10 mg Given 02/13/2022 7:48 AM CDT 10 mg Given 02/12/2022 9:02 AM CDT 10 mg mycophenolate mofetil (CELLCEPT) tablet 1,000 mg 1,000 mg, oral, 2 times daily, First dose on Sat02/12/22 at 0900, Do not crush, chew, cut, dissolve, open or otherwise manipulate tablet/capsule., Indications: immunosuppression maintenance tx for lung transplant, Stem cell transplantIndications:immunosuppression maintenance tx for lung transplant,Stem cell transplant Given 02/14/2022 9:46 AM CDT 1,000 mg Given 02/13/2022 8:21 PM CDT 1,000 mg Given 02/13/2022 7:48 AM CDT 1,000 mg nicotine (NICODERM CQ) 21 mg patch 24 hour 1 patch 1 patch, transdermal, Administer over 24 Hours, Daily, First dose on Sat02/12/22 at 1545, Apply a new patch every 24 hours to a clean, dry, hairless site on the upper arm or hip. Rotate site. Medication Applied 02/14/2022 9:46 AM CDT 1 patch Right Arm Medication Applied 02/13/2022 7:48 AM CDT 1 patch Right Arm Medication Applied 02/12/2022 4:15 PM CDT 1 patch Left Arm pantoprazole DR (PROTONIX) extended release tablet 40 mg 40 mg, oral, Daily, First dose on Sat02/12/22 at 0900, Do not crush, chew, cut, dissolve, open or otherwise manipulate tablet/capsule., Indications: Treatment of Non-Bleeding Gastric DisorderIndications:Treatment of Non-Bleeding Gastric Disorder Given 02/14/2022 9:45 AM CDT 40 mg Given 02/13/2022 7:48 AM CDT 40 mg Given 02/12/2022 9:02 AM CDT 40 mg polyvinyl alcohol-povidone (REFRESH CLASSIC) 1.4-0.6 % ophthalmic solution 2 drop 2 drop, each eye, Every 4 hours PRN, dry eyes, Starting on Sat02/12/22 at 0551, Indications: Dry EyeIndications:Dry Eye Given 02/13/2022 10:19 PM CDT 2 d rops Given 02/13/2022 7:47 AM CDT 2 drops Given 02/12/2022 11:21 AM CDT 2 drops potassium chloride ER (KLOR-CON) extended release tablet 40 mEq 40 mEq, oral, Every 2 hours PRN, potassium replacement, Starting on Sat02/12/22 at 0551, HOLD dose and contact prescriber/provider if any of the following conditions are met: 1. Patient is undergoing any form of dialysis. 2. Serum creatinine is GREATER than 1.5 mg/dL For patients who cannot take oral, contact provider/prescriber for IV potassium. 40 mEq x 1 dose for potassium less than 2.6 mmol/L, call prescriber for additional orders; For potassium 2.6-2.9 mmol/L, give 40 mEq every 2 hours x 2 doses and obtain stat potassium level 2 hours after the 2nd dose; For potassium 3.0-3.1 mmol/L, give 40 mEq every 2 hours x 2 doses; For potassium 3.2-3.5 mmol/L, give 40 mEq x 1 dose. Do not crush, chew, cut, dissolve, open or otherwise manipulate tablet/capsule., Indications: hypokalemiaIndications:hypokalemia predniSONE (DELTASONE) tablet 40 mg 40 mg, oral, Daily, First dose (after last reorder) on Sat02/12/22 at 0900, For 5 doses Given 02/14/2022 9:46 AM CDT 40 mg Given 02/13/2022 7:48 AM CDT 40 mg Given 02/12/2022 9:02 AM CDT 40 mg predniSONE (DELTASONE) tablet 60 mg 60 mg, oral, Once, On Sat02/11/22 at 2309, For 1 dose Given 02/11/2022 11:39 PM CDT 60 mg rivaroxaban (XARELTO) tablet 20 mg 20 mg, oral, Daily, First dose on Sat02/12/22 at 0900, Nurse to discontinue heparin infusion order and associated bolus at first administration of rivaroxaban using 'order condition met' order source. If patient is eating, administer doses of 15 mg or greater with food. If patient is not eating, still administer dose unless instructed differently by provider., Indications: Venous ThrombosisIndications:Venous Thrombosis Given 02/14/2022 9:46 AM CDT 20 m g Given 02/13/2022 7:48 AM CDT 20 mg Given 02/12/2022 9:05 AM CDT 20 mg sodium chloride (OCEAN) 0.65 % nasal spray 2 spray 2 spray, each nostril, Every 1 hour PRN, other, dryness, Starting on Sat02/12/22 at 0551, Indications: Dry NoseIndications:Dry Nose sodium chloride 0.9% flush 10-20 mL 10-20 mL, intra-catheter, As needed, line care, with each use, Starting on Sat02/12/22 at 0551, Flush volume based on line type, size, and protocol. Given 02/14/2022 9:50 AM CDT 10 mL sodium chloride 0.9% flush 5-10 mL 5-10 mL, intra-catheter, Every 12 hours scheduled, First dose on Sat02/12/22 at 0630, Flush volume based on line type, size, and protocol. Given 02/13/2022 3:46 PM CDT 10 mL Given 02/12/2022 9:06 AM CDT 10 mL sodium chloride 0.9% infusion 30 mL/hr, intravenous, Continuous PRN, KVO for medication administrations, Starting on Sat02/12/22 at 0551 sodium chloride 0.9% irrigation 30 mL 30 mL, swish & spit, 4 times daily, First dose on Sat02/12/22 at 0800, Use as mouth rinse for oral care. sodium chloride 0.9% IVPB 0-250 mL 0-250 mL, intravenous, As needed, flush tubing for blood product administration, Starting on Sat02/12/22 at 0551, Prime blood tubing and administer amount needed to clear line (usually 50-100 mL) after transfusion complete. sodium phosphate - potassium phosphate (K-PHOS NEUTRAL) tablet 500 mg 500 mg, oral, Daily PRN, phosphorus level 1.5-1.9 mg/dL, Starting on Sat02/12/22 at 0552, Contact provider for phosphorus level less than 1.5 mg/dL. Each tablet contains elemental phosphorus 250 mg (8 mmol), potassium 45 mg (1.1 mEq), and sodium 298 mg (13 mEq)., Indications: hypophosphatemiaIndications:hypophosphatemia sodium phosphate - potassium phosphate (K-PHOS NEUTRAL) tablet 500 mg 500 mg, oral, 3 times daily with meals, First dose on Sat02/13/22 at 0800, For 3 doses, Each tablet contains elemental phosphorus 250 mg (8 mmol), potassium 45 mg (1.1 mEq), and sodium 298 mg (13 mEq). Given 02/13/2022 6:34 PM CDT 500 mg Given 02/13/2022 12:23 PM CDT 500 mg Given 02/13/2022 7:49 AM CDT 500 mg tacrolimus (PROGRAF) immediate-release capsule 0.5 mg 0.5 mg, oral, Every other day, First dose on Sat02/12/22 at 0900, Avoid grapefruit juice, Indications: stem cell transplantsIndications:stem cell transplants Given 02/14/2022 9:45 AM CDT 0.5 mg Given 02/12/2022 9:02 AM CDT 0.5 mg voriCONAZOLE (VFEND) tablet 200 mg 200 mg, oral, 2 times daily, First dose on Sat02/12/22 at 0900, Indications: stem Cell TransplantIndications:stem Cell Transplant Given 02/14/2022 9:46 AM CDT 2 00 mg Given 02/13/2022 8:21 PM CDT 200 mg Given 02/13/2022 7:47 AM CDT 200 mg white petrolatum-mineral oiL (EUCERIN) cream topical, Every 2 hours PRN, dry skin, Starting on Sat02/12/22 at 0551, Apply to affected area: other, Indications: Dry SkinIndications:Dry Skin documented in this encounter Discontinued Medications Medication Sig Discontinue Reason Start Date End Da te Trelegy Ellipta 100-62.5-25 mcg inhalerIndications: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),Sizog-lusixq-zoqt disease (HCC),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HCC) INHALE 1 PUFF BY MOUTH DAILY Reorder 05/23/2021 02/13/2022 Trelegy Ellipta 100-62.5-25 mcg inhalerIndications:Bronc hospasm Prevention with COPD Inhale 1 puff daily Reorder 02/13/2022 02/13/2022 predniSONE (DELTASONE) 20 mg tablet Take 2 tablets (40 mg) by mouth daily for 3 doses 02/14/2022 02/13/2022 levoFLOXacin (LEVAQUIN) 750 mg tabletIndications:Pneumo tanya, Community Acquired Take 1 tablet (750 mg total) by mouth daily for 8 days Reorder 02/13/2022 02/13/2022 ofloxacin (OCUFLOX) 0.3 % ophthalmic solution Administer 1 drop into the left eye 4 (four) times a day Stop Taking at Discharge 08/01/2021 02/14/2022 sucralfate (CARAFATE) 1 gram tablet Take 1 tablet (1 g total) by mouth 2 (two) times a day for 10 days Stop Taking at Discharge 09/10/2021 02/14/2022 gabapentin (NEURONTIN) 300 mg capsuleIndications:Type 2 diabetes mellitus with hyperosmolarity 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, with long-term current use of insulin (HCC) Take 1 capsule (300 mg total) by mouth 4 (four) times a day Stop Taking at Discharge 12/07/2021 02/14/2022 documented as of this encounter Active and Recently Administered Medications Times are shown in CDT. Scheduled Medication Order 02/12/2022 02/13/2022 02/14/2022 acyclovir (ZOVIRAX) tablet 400 mg 400 mg, oral, Daily, First dose on Sat02/12/22 at 0900, Indications: Prophylaxis, Medical 09 (Given - Provider: Xiomara Frazier RN) 0749 (Given - Provider: Gisela Chappell) 0945 (Given - Provider: Xiomara Frazier RN) albuterol 2.5 mg/0.5 mL nebulizer solution 2.5 mg (CANCELED) 2.5 mg, nebulization, Every 4 hours (respiratory coordinator), First dose on Sat02/12/22 at 0148 0209 (Given - Provider: Harsha Zepeda, INSURANCE EXAMINER) atorvastatin (LIPITOR) tablet 40 mg 40 mg, oral, Daily, First dose on Sat02/12/22 at 0900 0902 (Given - Provider: Xiomara Frazier RN) 0748 (Given - Provider: Gisela Chappell) 0946 (Given - Provider: Xiomara Frazier RN) azithromycin (ZITHROMAX) tablet 250 mg 250 mg, oral, Daily, First dose on Sat02/12/22 at 0900, For 4 doses, Indications: COPD Exacerbation 0902 (Given - Provider: Xiomara Frazier RN) 0748 (Given - Provider: Gisela Chappell) 0946 (Given - Provider: Xiomara Frazier RN) cefTRIAXone (ROCEPHIN) 1,000 mg/10 mL in sterile water (premix) 1,000 mg 1,000 mg, intravenous, at 600 mL/hr, Administer over 1 Minutes, Every 24 hours scheduled, First dose on Sat02/12/22 at 0149, Indications: Pneumonia, Community Acquired 0207 (Given - Provider: Leila Elizalde RN) 0047 (Given - Provider: Fer Sommer, BECKI) 0222 (Given - Provider: Sebastian Hernandez, BECKI) ictedulvwkq-nnmtxjlln-crgs nter (TRELEGY ELLIPTA) 100-62.5-25 mcg inhaler 1 puff 1 puff, inhalation, Daily (respiratory coordinator), First dose on Sat02/14/22 at 0830, Rinse mouth with water after use. Do not swallow. 1245 (Given - Provider: Clinton Gamble, INSURANCE EXAMINER) gabapentin (NEURONTIN) capsule 300 mg 300 mg, oral, 3 times daily, First dose on Sat02/12/22 at 0900, Do not crush, break, or open. 0902 (Given - Provider: Xiomara Frazier RN)1615 (Given - Provider: Xiomara Frazier RN)2032 (Given - Provider: Fer Sommer, BECKI) 0748 (Given - Provider: Gisela Chappell)1546 (Given - Provider: Xiomara Frazier RN)202 (Given - Provider: Sebastian Hernandez, BECKI) 0946 (Given - Provider: Xiomara Frazier, BECKI)1527 (Given - Provider: Xiomara Frazier, BECKI)2100 (Due) heparin 10 unit/mL flush 50 Units 50 Units (5 mL), intra-catheter, 2 times daily, First dose on Sat02/12/22 at 0630, Do not use with Groshong catheter. Do not use with peripheral IV., Indications: Maintain Patency of Indwelling Vascular Catheter 0903 (Not Given - Provider: Xiomara Frazier RN - Reason: Order parameters not met)1609 (Not Given - Provider: Xiomara Frazier RN - Reason: Order parameters not met - Comment: pt has peripheral IV) 0438 (Not Given - Provider: Fer Sommer RN - Reason: Order parameters not met - Comment: pt has piv)1546 (Not Given - Provider: Xiomara Frazier RN - Reason: Order parameters not met) 0218 (Not Given - Provider: Sebastian Hernandez RN - Reason: Order parameters not met)1528 (Not Given - Provider: Xiomara Frazier RN - Reason: Order parameters not met) insulin glargine (LANTUS, SEMGLEE) 100 unit/mL injection 10 Units (CANCELED) 10 Units (rounded from 9.6 Units = 0.15 Units/kg ? 64 kg), subcutaneous, Nightly, First dose on Sat02/12/22 at 2100, Do not hold if NPO. Do not mix with other insulins, Indications: Diabetes Mellitus 2032 (Given - Provider: Fer Sommer RN) insulin glargine (LANTUS, SEMGLEE) 100 unit/mL injection 15 Units 15 Units, subcutaneous, Nightly, First dose (after last modification) on Sat02/13/22 at 2100, Do not hold if NPO. Do not mix with other insulins, Indications: Diabetes Mellitus 2020 (Given - Provider: Sebastian Hernandez, BECKI) 2100 (Due) insulin lispro (HumaLOG, ADMELOG) 100 unit/mL injection 0-10 Units 0-10 Units, subcutaneous, 3 times daily with meals, First dose on Sat02/13/22 at 1845, Blood glucose mg/dL: 149 or less: No insulin 150-199: add 2 unit 200-249: add 4 units 250-299: add 6 units 300-349: add 8 units and notify physician for adjustment of insulin orders. 350-399: add 10 units and notify physician for adjustment of insulin orders. Over 400: Notify physician for adjustment of insulin orders. Do NOT hold for NPO Status, Indications: Diabetes Mellitus 1834 (Given - Provider: Gisela Chappell) 0944 (Given - Provider: Xiomara Frazier RN)1320 (Given - Provider: Xiomara Frazier RN)1659 (Given - Provider: Xiomara Frazier RN) insulin lispro (HumaLOG, ADMELOG) 100 unit/mL injection 0-4 Units (CANCELED) 0-4 Units, subcutaneous, Nightly, First dose on Sat02/12/22 at 2100, Blood glucose mg/dL: 199 or less: No insulin 200-249: add 1 unit 250-299: add 2 units 300-349: add 3 units and notify physician for adjustment of insulin orders. 350-399: add 4 units and notify physician for adjustment of insulin orders. Over 400: Notify physician for adjustment of insulin orders. Do NOT hold for NPO Status, Indications: Diabetes Mellitus 2032 (Given - Provider: Fer Sommer RN) insulin lispro (HumaLOG, ADMELOG) 100 unit/mL injection 0-5 Units (CANCELED) 0-5 Units, subcutaneous, 3 times daily with meals, First dose on Sat02/12/22 at 0800, Blood glucose mg/dL: 149 or [...] for NPO Status, Indications: Diabetes Mellitus 0852 (Given - Provider: Xiomara Frazier RN)1203 (Given - Provider: Xiomara Frazier RN)1703 (Given - Provider: Xiomara Frazier RN) 0750 (Given - Provider: Gisela Chappell)1224 (Given - Provider: Xiomara Frazier RN)1825 (Not Given - Provider: Xiomara Frazier RN - Reason: Order Discontinued) insulin lispro (HumaLOG, ADMELOG) 100 unit/mL injection 0-5 Units 0-5 Units, subcutaneous, Nightly, First dose on Sat02/13/22 at 2100, Blood glucose mg/dL: 149 or [...] hold for NPO Status, Indications: Diabetes Mellitus 221 (Given - Provider: Sebastian Hernandez, BECKI) 2100 (Due) insulin lispro (HumaLOG, ADMELOG) 100 unit/mL injection 1 Units (COMPLETED) 1 Units, subcutaneous, Once, On Sat02/12/22 at 2115, For 1 dose, Indications: Hyperglycemia 2032 (Given - Provider: Fer Sommer RN) insulin lispro (HumaLOG, ADMELOG) 100 unit/mL injection 3 Units 3 Units (rounded from 3.2 Units = 0.05 Units/kg ? 64 kg), subcutaneous, 3 times daily with meals, First dose on Sat02/12/22 at 0800, If BG greater than or equal to [...] less than 70 mg/dL., Indications: Diabetes Mellitus 0851 (Given - Provider: Xiomara Frazier RN)1203 (Given - Provider: Xiomara Frazier, BECKI)1703 (Given - Provider: Xiomara Frazier, BECKI) 0751 (Given - Provider: Gisela Chappell)1224 (Given - Provider: Xiomara Frazier, BECKI)1830 (Not Given - Provider: Xiomara Frazier RN - Reason: See Provider Order - Comment: per MD Hill, give 10 units slide.) 0945 (Given - Provider: Xiomara Frazier, EBCKI)1320 (Given - Provider: Xiomara Frazier, BECKI)1659 (Given - Provider: Xiomara Frazier, BECKI) insulin lispro (HumaLOG, ADMELOG) 100 unit/mL injection 8 Units (COMPLETED) 8 Units, subcutaneous, Once, On Sat02/13/22 at 2045, For 1 dose, Indications: Hyperglycemia 2021 (Given - Provider: Sebastian Hernandez, BECKI) insulin regular (HumuLIN R, NovoLIN R) 100 unit/mL injection 7 Units (COMPLETED)(Linked Group 1) 7 Units, intravenous, Once, On Sat02/13/22 at 1615, For 1 dose, Indications: Hyperglycemia 1545 (Given - Provider: Xiomara Frazier RN) montelukast (SINGULAIR) tablet 10 mg 10 mg, oral, Daily, First dose on Sat02/12/22 at 0900 0902 (Given - Provider: Xiomara Frazier RN) 0748 (Given - Provider: Gisela Chappell) 0946 (Given - Provider: Xiomara Frazier RN) mycophenolate mofetil (CELLCEPT) tablet 1,000 mg 1,000 mg, oral, 2 times daily, First dose on Sat02/12/22 at 0900, Do not crush, chew, cut, dissolve, open or otherwise manipulate tablet/capsule., Indications: immunosuppression maintenance tx for lung transplant, Stem cell transplant 901 (Given - Provider: Xiomara Frazier RN)2032 (Given - Provider: Fer Sommer RN) 0748 (Given - Provider: Gisela Chappell)2020 (Given - Provider: Sebastian Hernandez RN) 0946 (Given - Provider: Xiomara Frazier RN)2100 (Due) nicotine (NICODERM CQ) 21 mg patch 24 hour 1 patch 1 patch, transdermal, Administer over 24 Hours, Daily, First dose on Sat02/12/22 at 1545, Apply a new patch every 24 hours to a clean, dry, hairless site on the upper arm or hip. Rotate site. 1615 (Medication Applied - Provider: Xiomara Frazier RN) 0748 (Medication Applied - Provider: Gisela Chappell) 0800 (Medication Removed - Provider: Xiomara Frazier RN)0946 (Medication Applied - Provider: Xiomara Frazier RN)2105 (Due: Medication Removed - Provider: Automatic Discharge Provider - Comment: Time automatically adjusted from order being discontinued) pantoprazole DR (PROTONIX) extended release tablet 40 mg 40 mg, oral, Daily, First dose on Sat02/12/22 at 0900, Do not crush, chew, cut, dissolve, open or otherwise manipulate tablet/capsule., Indications: Treatment of Non-Bleeding Gastric Disorder 09 (Given - Provider: Xiomara Frazier RN) 0748 (Given - Provider: Gisela Chappell) 0945 (Given - Provider: Xiomara Frazier RN) predniSONE (DELTASONE) tablet 40 mg 40 mg, oral, Daily, First dose (after last reorder) on Sat02/12/22 at 0900, For 5 doses 09 (Given - Provider: Xiomara Frazier RN) 0748 (Given - Provider: Gisela Chappell) 0946 (Given - Provider: Xiomara Frazier RN) rivaroxaban (XARELTO) tablet 20 mg 20 mg, oral, Daily, First dose on Sat02/12/22 at 0900, Nurse to discontinue heparin infusion order and associated bolus at first administration of rivaroxaban using 'order condition met' order source. If patient is eating, administer doses of 15 mg or greater with food. If patient is not eating, still administer dose unless instructed differently by provider., Indications: Venous Thrombosis 0905 (Given - Provider: Xiomara Frazier RN) 0748 (Given - Provider: Gisela Chappell) 0946 (Given - Provider: Xiomara Frazier RN) sodium chloride 0.9% flush 5-10 mL 5-10 mL, intra-catheter, Every 12 hours scheduled, First dose on Sat02/12/22 at 0630, Flush volume based on line type, size, and protocol. 0906 (Given - Provider: Xiomara Frazier RN)1610 (Not Given - Provider: Xiomara Frazier RN - Reason: Patient/family refused) 0438 (Not Given - Provider: Fer Sommer RN - Reason: Other)1546 (Given - Provider: Xiomara Frazier RN) 0435 (Not Given - Provider: Sebastian Hernandez RN - Reason: Order parameters not met)1528 (Not Given - Provider: Xiomara Frazier RN - Reason: Patient on Leave of Absence) sodium chloride 0.9% irrigation 30 mL 30 mL, swish & spit, 4 times daily, First dose on Sat02/12/22 at 0800, Use as mouth rinse for oral care. 0903 (Not Given - Provider: Xiomara Frazier RN - Reason: Patient/family refused)1204 (Not Given - Provider: Xiomara Frazier RN - Reason: Patient/family refused)1610 (Not Given - Provider: Xiomara Frazier RN - Reason: Patient/family refused)2033 (Not Given - Provider: Fer Sommer RN - Reason: Other) 0749 (Not Given - Provider: Xiomara Frazier RN - Reason: Patient/family refused)1225 (Not Given - Provider: Xiomara Frazier RN - Reason: Patient/family refused)1546 (Not Given - Provider: Xiomara Frazier RN - Reason: Patient/family refused)2121 (Not Given - Provider: Sebastian Hernandez RN - Reason: Patient/family refused) 0951 (Not Given - Provider: Xiomara Frazier RN - Reason: Patient/family refused)1320 (Not Given - Provider: Xiomara Frazier RN - Reason: Patient/family refused)1655 (Not Given - Provider: Xiomara Frazier RN - Reason: Patient/family refused)2100 (Due) sodium phosphate - potassium phosphate (K-PHOS NEUTRAL) tablet 500 mg (COMPLETED) 500 mg, oral, 3 times daily with meals, First dose on Sat02/13/22 at 0800, For 3 doses, Each tablet contains elemental phosphorus 250 mg (8 mmol), potassium 45 mg (1.1 mEq), and sodium 298 mg (13 mEq). 0749 (Given - Provider: Gisela Chappell)1223 (Given - Provider: Xiomara Frazier RN)1834 (Given - Provider: Gisela Chappell) tacrolimus (PROGRAF) immediate-release capsule 0.5 mg 0.5 mg, oral, Every other day, First dose on Sat02/12/22 at 0900, Avoid grapefruit juice, Indications: stem cell transplants 0902 (Given - Provider: Xiomara Frazier RN) 0945 (Given - Provider: Xiomara Frazier RN) voriCONAZOLE (VFEND) tablet 200 mg 200 mg, oral, 2 times daily, First dose on Sat02/12/22 at 0900, Indications: stem Cell Transplant 0902 (Given - Provider: Xiomara Frazier, BECKI)2032 (Given - Provider: Fer Sommer, RN) 0747 (Given - Provider: Gisela Chappell)2020 (Given - Provider: Sebastian Hernandez RN) 0946 (Given - Provider: Xiomara Frazier, BECKI)2100 (Due) PRN Medication Order 02/12/2022 02/13/2022 02/14/2022 acetaminophen (TYLENOL) tablet 650 mg 650 mg, oral, Every 4 hours PRN, blood product administration, Starting on Sat02/12/22 at 0551, Indications: Prophylaxis Transfusion Reaction acetaminophen (TYLENOL) tablet 650 mg 650 mg, oral, Every 6 hours PRN, fever, Starting on Sat02/12/22 at 0551, Indications: Fever albuterol 2.5 mg/0.5 mL nebulizer solution 2.5 mg(Linked Group 2) 2.5 mg, nebulization, Every 4 hours PRN (respiratory coordinator), wheezing, Starting on Sat02/12/22 at 0212 1714 (Given - Provider: Miguel Ángel Rodriguez, INSURANCE EXAMINER) 0350 (Given - Provider: Sourav Najera, INSURANCE EXAMINER)2200 (Given - Provider: Daria Phillips, INSURANCE EXAMINER) aluminum & magnesium tgnqmzbss-kerdjpvnryv-onhy enhydramine-lidocaine (MAGIC MOUTHWASH) suspension 1-1-1 15 mL, swish & swallow, 4 times daily PRN, other, mucositis, Starting on Sat02/12/22 at 0551, Indications: Chemotherapy-Induced Mucositis bacitracin-polymyxin B (POLYSPORIN) 500-10,000 unit/gram ointment tube 1 application 1 application (deactivated), topical, Every 4 hours PRN, wound care, Starting on Sat02/12/22 at 0551, Apply to affected area: other, Indications: Minor Bacterial Skin Infections camphor-menthoL (SARNA) 0.5-0.5 % lotion topical, Every 2 hours PRN, itching, Starting on Sat02/12/22 at 0551, Apply to affected area: other, Indications: Pruritus of Skin cefepime (MAXIPIME) 1,000 mg/10 mL in sterile water (premix) 1,000 mg 1,000 mg, intravenous, at 20 mL/hr, Administer over 30 Minutes, Once as needed, for suspicion of sepsis, Starting on Sat02/12/22 at 0552, For 1 dose, Administer for temperature of 38.3 C or greater, 38 C for at least 1 hour, or for any acute change in condition with high suspicion of sepsis in the absence of fever (SBP/DBP reduction of 20 mmHg or more, confusion, hypothermia with temp of 35 C, and not receiving any other IV antibiotics., Indications: Neutropenic Fever dextrose (D10W) 10% bolus 250 mL(Linked Group 3) 250 mL, intravenous, at 1,000 mL/hr, Administer over 15 Minutes, Every 15 min PRN, blood glucose less than 70 mg/dL and UNABLE to swallow/take PO glucose/juice., Starting on Sat02/12/22 at 0600, After treatment for hypoglycemia, recheck BG followed by treatment every 15 minutes until the BG is greater than 100 mg/dL. Then check BG 1 hour post treatment. If BG is less than 100 mg/dL, repeat Q15 minute BG checks and treatment. Call MD for each episode of hypoglycemia., Indications: hypoglycemic disorder dextrose (GLUTOSE) 40 % gel 15 g(Linked Group 3) 15 g, oral, Every 15 min PRN, low blood sugar, blood glucose less than 70 mg/dL, Starting on Sat02/12/22 at 0600, If patient is alert and able to [...] Call MD for each episode of hypoglycemia. VICE PRESIDENT OF HUMAN RESOURCES STATES GLUTOSE-15 CONTAINS GLUCOSE 40% W/W (50% W/V), Indications: hypoglycemic disorder glucagon injection 1 mg 1 mg, intramuscular, Every 30 min PRN, low blood sugar, blood glucose less than 70 mg/dL AND no IV access AND unable to take PO glucose/juice., Starting on Sat02/12/22 at 0600, After Glucagon is administered, position patient on [...] line care, with each use, Starting on Sat02/12/22 at 0551, Do not use with Groshong catheter. Do not use with peripheral IV Flush volume based on line type, size, and protocol., Indications: Maintain Patency of Indwelling Vascular Catheter ioversoL (OPTIRAY 350) syringe syringe 100 mL (COMPLETED) 100 mL, intravenous, Once in imaging, contrast, Starting on Sat02/12/22 at 0100, For 1 dose 0101 (Contrast Given - Provider: Dora Wilson, RT) ipratropium (ATROVENT) 0.02 % nebulizer solution 0.5 mg(Linked Group 2) 0.5 mg, nebulization, Every 4 hours PRN (respiratory coordinator), wheezing, shortness of breath, Starting on Sat02/12/22 at 0210 1714 (Given - Provider: Miguel Ángel Rodriguez, INSURANCE EXAMINER) 0350 (Given - Provider: Sourav Najera, INSURANCE EXAMINER)2200 (Given - Provider: Daria Phillips, INSURANCE EXAMINER) loperamide (IMODIUM) capsule 2 mg 2 mg, oral, Every 1 hour PRN, diarrhea, after each liquid stool (ensure that at least one C. diff assay is negative prior to initiating), Starting on Sat02/12/22 at 0551, Total loperamide dose should not exceed 16 mg in 24 hours., Indications: diarrhea magnesium sulfate 4 g/100 mL in water (premix) 4 g 4 g, intravenous, Administer over 90 Minutes, Every 4 hours PRN, magnesium replacement, Starting on Sat02/12/22 at 0552, For magnesium level of 1.2-1.5 mg/dL, Indications: hypomagnesemia magnesium sulfate 6 g in sodium chloride 0.9% 250 mL IVPB 6 g, intravenous, at 131 mL/hr, Administer over 120 Minutes, Every 4 hours PRN, magnesium replacement, Starting on Sat02/12/22 at 0552, For magnesium level less than 1.2 mg/dL and call/notify provider., Indications: hypomagnesemia ondansetron ODT (ZOFRAN-ODT) disintegrating tablet 4 mg 4 mg, oral, Every 8 hours PRN, nausea, vomiting, Starting on Sat02/12/22 at 0600, Indications: Prevention of Post-Operative Nausea and Vomiting polyvinyl alcohol-povidone (REFRESH CLASSIC) 1.4-0.6 % ophthalmic solution 2 drop 2 drop, each eye, Every 4 hours PRN, dry eyes, Starting on Sat02/12/22 at 0551, Indications: Dry Eye 1121 (Given - Provider: Xiomara Frazier RN) 0747 (Given - Provider: Gisela Chappell)2219 (Given - Provider: Sebastian Hernandez RN) potassium chloride ER (KLOR-CON) extended release tablet 40 mEq 40 mEq, oral, Every 2 hours PRN, potassium replacement, Starting on Sat02/12/22 at 0551, HOLD dose and contact prescriber/provider if any of the following conditions are met: 1. Patient is undergoing any form of dialysis. 2. Serum creatinine is GREATER than 1.5 mg/dL For patients who cannot take oral, contact provider/prescriber for IV potassium. 40 mEq x 1 dose for potassium less than 2.6 mmol/L, call prescriber for additional orders; For potassium 2.6-2.9 mmol/L, give 40 mEq every 2 hours x 2 doses and obtain stat potassium level 2 hours after the 2nd dose; For potassium 3.0-3.1 mmol/L, give 40 mEq every 2 hours x 2 doses; For potassium 3.2-3.5 mmol/L, give 40 mEq x 1 dose. Do not crush, chew, cut, dissolve, open or otherwise manipulate tablet/capsule., Indications: hypokalemia sodium chloride (OCEAN) 0.65 % nasal spray 2 spray 2 spray, each nostril, Every 1 hour PRN, other, dryness, Starting on Sat02/12/22 at 0551, Indications: Dry Nose sodium chloride 0.9% flush 10-20 mL 10-20 mL, intra-catheter, As needed, line care, with each use, Starting on Sat02/12/22 at 0551, Flush volume based on line type, size, and protocol. 0950 (Given - Provider: Xiomara Frazier RN) sodium chloride 0.9% infusion 30 mL/hr, intravenous, Continuous PRN, KVO for medication administrations, Starting on Sat02/12/22 at 0551 0218 (Not Given - Provider: Sebastian Hernandez RN - Reason: Order parameters not met) sodium chloride 0.9% IVPB 0-250 mL 0-250 mL, intravenous, As needed, flush tubing for blood product administration, Starting on Sat02/12/22 at 0551, Prime blood tubing and administer amount needed to clear line (usually 50-100 mL) after transfusion complete. sodium phosphate - potassium phosphate (K-PHOS NEUTRAL) tablet 500 mg 500 mg, oral, Daily PRN, phosphorus level 1.5-1.9 mg/dL, Starting on Sat02/12/22 at 0552, Contact provider for phosphorus level less than 1.5 mg/dL. Each tablet contains elemental phosphorus 250 mg (8 mmol), potassium 45 mg (1.1 mEq), and sodium 298 mg (13 mEq)., Indications: hypophosphatemia white petrolatum-mineral oiL (EUCERIN) cream topical, Every 2 hours PRN, dry skin, Starting on Sat02/12/22 at 0551, Apply to affected area: other, Indications: Dry Skin Linked Groups Order Group 1: insulin regular (HumuLIN R, NovoLIN R) 100 unit/mL injection 7 Units (COMPLETED)Jump to med 7 Units, intravenous, Once, On Sat02/13/22 at 1615, For 1 dose, Indications: Hyperglycemia And POCT glucose (CANCELED) Once (Routine), On Sat02/13/22 at 1537, For 1 occurrence, 1 hour after administering IV push Insulin Regular. Communicate result with MD. And POCT glucose (CANCELED) Once (Routine), On Sat02/13/22 at 1537, For 1 occurrence, 3 hours after administering IV push Insulin Regular. Communicate result with MD. Group 2: albuterol 2.5 mg/0.5 mL nebulizer solution 2.5 mgJump to med 2.5 mg, nebulization, Every 4 hours PRN (respiratory coordinator), wheezing, Starting on Sat02/12/22 at 0212 And ipratropium (ATROVENT) 0.02 % nebulizer solution 0.5 mgJump to med 0.5 mg, nebulization, Every 4 hours PRN (respiratory coordinator), wheezing, shortness of breath, Starting on Sat02/12/22 at 0210 Group 3: dextrose (GLUTOSE) 40 % gel 15 gJump to med 15 g, oral, Every 15 min PRN, low blood sugar, blood glucose less than 70 mg/dL, Starting on Sat02/12/22 at 0600, If patient is alert and able to [...] Call MD for each episode of hypoglycemia. VICE PRESIDENT OF HUMAN RESOURCES STATES GLUTOSE-15 CONTAINS GLUCOSE 40% W/W (50% W/V), Indications: hypoglycemic disorder Or dextrose (D10W) 10% bolus 250 mLJump to med 250 mL, intravenous, at 1,000 mL/hr, Administer over 15 Minutes, Every 15 min PRN, blood glucose less than 70 mg/dL and UNABLE to swallow/take PO glucose/juice., Starting on Sat02/12/22 at 0600, After treatment for hypoglycemia, recheck BG followed [...] MGLEE) 100 unit/mL injection 12 Units 1 02/13/2022 acetaminophen (TYLENOL) tablet 650 mg 2 aluminum & magnesium yfhxaylcz-zymypzmvupd-uhdnizimfhmqgjc-lido aida (MAGIC MOUTHWASH) suspension 1-1-1 1 02/12/2022 bacitracin-polymyxin B (POLY SPORIN) 500-10,000 unit/gram ointment tube 1 application 1 02/12/2022 camphor-menthoL (SARNA) 0.5-0.5 % lotion 1 02/12/2022 cefepime (MAXIPIME) 1,000 mg /10 mL in sterile water (premix) 1,000 mg 1 02/12/2022 dextrose (D10W) 10% bolus 250 mL 02/13/20 dextrose (GLUTOSE) 40 % gel 15 g 1 02/13/20 glucagon injection 1 mg 1 02/12/2022 heparin 10 unit/mL flush 20-50 Units 01/17 heparin 10 unit/mL flush 50 Units heparin 5,000 unit/mL inject ion 5,000 Units 02/12/2022 ipratropium (ATROVENT) 0.02 % nebulizer solution 0.5 mg 2 02/12/2022 02/11/2022 loperamide (IMODIUM) capsule 2 mg 1 magnesium sulfate 4 g/100 mL in water (premix) 4 g 1 02/12/2022 magnesium sulfate 6 g in sod ium chloride 0.9% 250 mL IVPB 02/12/2022 ondansetron ODT (ZOFRAN-ODT) disintegrating tablet 4 mg 1 02/12/2022 potassium chloride ER (KLOR- CON) extended release tablet 40 mEq 02/12/2022 sodium chloride (OCEAN) 0.65 % nasal spray 2 spray 1 02/12/2022 sodium chloride 0.9% infusion 1 02/12/2022 sodium chloride 0.9% irrigation 30 mL 1 sodium chloride 0.9% IVPB 0-250 mL 1 2021 sodium phosphate - potassium phosphate (K-PHOS NEUTRAL) tablet 500 mg 02/12/2022 white petrolatum-mineral oiL (EUCERIN) cream 1 02/12/2022 albuterol 2.5 mg/0.5 mL nebu lizer solution 5 mg 1 02/11/2022 Lab Orders Without Results Count Last Ordered D ate First Ordered Date HEMOGLOBIN A1C 1 02/12/2022 POCT GLUCOSE DEVICE 5 02/12/2022 02/12/20 PRO B-TYPE NATRIURETIC PEPTIDE 1 02/11/2022 Consult Count Last Ordered Date First Orde red Date IP CONSULT TO NUTRITION SERVICES 1 02/13/20 22 ADT Patient Update Count Last Ordered Date Firs t Ordered Date ED IP DECISION TO ADMIT 1 02/12/2022 documented in this encounter Care Teams Redevelopment Manager Relationship Specialty Start Date End Date Kirt Lindsay DO PCP - General Internal Medicine 02/02/21 Josué Del Valle MD PhD Medical Oncologist/Nail Technician Medical Oncology 08/26/19 Tay Charlton MD Consulting Physician Gastroenterology 12/03/21 06/11/23 Halie Khan MD [address] [facility] [address] [place], [place] [id number] Consulting Physician Pulmonary Disease 12/12/21 3 Ant Starks MD [address] [facility] [address] [place], [place] [address] Consulting Physician Transplant Hepatology 01/12/22 documented as of this encounter
--- OUTSIDE RECORDS SUMMARY | 2024-11-22 10:56 | XMS_ITS | Encounter Summary ---
Author Organization [facility] Address [address] [place] [address] Phone Care Team Providers Care Burlap Man Name Role Phone Josué Del Valle MD PhD Unavailable [phone] Kirt Lindsay DO Primary Care Provider [phone] Tay Charlton MD Unavailable [phone] Halie Khan MD Unavailable [phone] StarksAnt goldman MD Unavailable [phone] Encounter Details Date Type Department Care Team (Late st Contact Info) Description 01/18/2022 Telephone [facility] Bone Marrow Transplant [address] 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 documented in this encounter Plan of Treatment Not on file documented as of this encounter Visit Diagnoses Not on filedocumented in this encounter Care Teams Burlap Man Relationship Specialty Start Date End Date Kirt Lindsay DO PCP - General Internal Medicine 02/02/21 Josué Del Valle MD PhD Medical Oncologist/Systems Integration Advisor Medical Oncology 08/26/19 Tay Charlton MD Consulting Physician Gastroenterology 12/03/21 06/11/23 Halie Khan MD [address] [address] Consulting Physician Pulmonary Disease 12/12/21 3 Ant Starks MD [address] [address] Consulting Physician Transplant Hepatology 01/12/22 documented as of this encounter
--- OUTSIDE RECORDS SUMMARY | 2024-11-22 10:56 | XMS_ITS | Encounter Summary ---
Author Organization [facility] Address [address] [place] [address] Phone Care Team Providers Care Manager Construction Name Role Phone Josué Del Valle MD PhD Unavailable [phone] Kirt Lindsay DO Primary Care Provider [phone] Tay Charlton MD Unavailable [phone] Halie Khan MD Unavailable [phone] Ant Starks MD Unavailable [phone] Encounter Details Date Type Department Care Team (Late st Contact Info) Description 02/15/2022 Orders Only [facility] Bone Marrow Transplant [address] [facility] 7th Floor, [place] [address] Anaid Polanco RN 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HCC) (Primary Dx); AML (acute myeloid leukemia) [...] on file 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 Gender Identity Not on file Sexual Orientation Not on file documented as of this encounter Plan of Treatment Not on file documented as of this encounter Visit Diagnoses Diagnosis 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) documented in this encounter Care Teams Manager Construction Relationship Specialty Start Date End Date Kirt Lindsay DO PCP - General Internal Medicine 02/02/21 Josué Del Valle MD PhD Medical Oncologist/Staff Toxicologist Medical Oncology 08/26/19 Tay Charlton MD Consulting Physician Gastroenterology 12/03/21 06/11/23 Halie Khan MD [address] [facility] [address] [place] [address] Consulting Physician Pulmonary Disease 12/12/21 3 Ant Starks MD [address] [address] Consulting Physician Transplant Hepatology 01/12/22 documented as of this encounter
--- OUTSIDE RECORDS SUMMARY | 2024-11-22 10:56 | XMS_ITS | Encounter Summary ---
Author Organization [facility] Address [address] [place] [address] Phone Care Team Providers Care Training Mgr Name Role Phone Josué Del Valle MD PhD Unavailable [phone] Kirt Lindsay DO Primary Care Provider [phone] Tay Charlton MD Unavailable [phone] Halie Khan MD Unavailable [phone] Ant Starks MD Unavailable [phone] Encounter Details Date Type Department Care Team (Late st Contact Info) Description 02/12/2022 Orders Only [facility] Bone Marrow Transplant [address] [facility] Advanced Medicine 7th Floor, [place] [address] Narcisa Kilgore, ARMEN [address] DIV IM BONE MARROW TRANSPLANT, [address] [place] [address] AML (acute myeloid leukemia) in [...] on file 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 Gender Identity Not on file Sexual Orientation Not on file documented as of this encounter Plan of Treatment Not on file documented as of this encounter Results * Lactate dehydrogenase (LD) (02/28/2022 8:57 AM CDT) Lactate dehydrogenase (LDH) 199 100 - 250 Units/L [facility] Comment:Testing performed by : [facility], [address] [place] [phone] Blood 02/28/2022 8:57 AM CDT 02/28/2022 9:00 AM CDT Narcisa Kilgore CONTENT ANALYST LAB BLOOD ORDERABLES Pilar l Result [facility] Department [place] [address] * (ABNORMAL) Comprehensive metabolic panel (02/28/2022 8:57 AM CDT) Sodium 138 135 - 145 mmol/L [facility] Comment:Testing performed by : [facility], [address] [place] [phone] Potassium, pl 5.7(H) 3.3 - 4.9 mmol/L [facility] Comment:Testing performed by : [facility], [address] [place] [phone] Chloride 101 97 - 110 mmol/L [facility] Comment:Testing performed by : [facility], [address] [place] [phone] CO2 30 22 - 32 mmol/L [facility] Comment:Testing performed by : [facility], [address] [place] [phone] Anion gap 7 2 - 15 mmol/L [facility] Comment:Testing performed by : [facility], [address] [place] [phone] BUN 15 8 - 25 mg/dL [facility] Comment:Testing performed by : [facility], [address] [place] [phone] Creatinine 0.66(L) 0.80 - 1.30 mg/dL [facility] Comment:Testing performed by : [facility], [address] [place] [phone] Glucose 163 70 - 199 mg/dL [facility] [...] was last revised 2017. Testing performed by: [facility], [address] [place] [phone] Calcium 9.7 8.5 - 10.3 mg/dL [facility] Comment:Testing performed by : [address] [address] Bilirubin, total 0.4 0.1 - 1.2 mg/dL [facility] Comment:Testing performed by : [address] [address] Protein, pl 7.0 6.5 - 8.5 g/dL [facility] Comment:Testing performed by : [address] [address] Albumin 4.0 3.5 - 5.0 g/dL [facility] Comment:Testing performed by : [address] [phone] Alk phos 221(H) 40 - 130 Units/L [facility] Comment:Testing performed by : [address] [address] ALT 48 7 - 55 Units/L [facility] Comment:Testing performed by : [facility], [address] [place] [phone] AST 39 10 - 50 Units/L [facility] Comment:Testing performed by : [facility], [address] [place] [phone] Blood 02/28/2022 8:57 AM CDT 02/28/2022 9:00 AM CDT us Narcisa Kilgore CONTENT ANALYST LAB BLOOD ORDERABLES Pilar l Result [facility] [place] [address] * (ABNORMAL) CBC with auto differential (02/28/2022 8:57 AM CDT) WBC 9.0 3.8 - 9.8 K/cumm [facility] Comment:Testing performed by : [facility], [address] [place] [phone] Hgb 11.6(L) 13.8 - 17.2 g/dL [facility] Comment:Testing performed by : [facility], [address] [place] [phone] Hct 33.9(L) 40.7 - 50.3 % [facility] Comment:Testing performed by : [facility], [address] [place] [phone] Plt 309 140 - 440 K/cumm [facility] Comment:Testing performed by : [facility], [address] [place] [phone] MPV 7.5 6.8 - 10.4 fL [facility] Comment:Testing performed by : [address] [address] RBC 3.23(L) 4.50 - 5.70 M/cumm [facility] Comment:Testing performed by : [address] [phone] MCV 105.0(H) 80.0 - 97.6 fL [facility] Comment:Testing performed by : [facility], [address] [place] [phone] MCH 36.0(H) 26.7 - 33.7 pg [facility] Comment:Testing performed by : [facility], [address] [place] [address] MCHC 34.2 32.7 - 35.5 g/dL [facility] Comment:Testing performed by : [facility], [address] [place] [phone] RDW CV 16.6(H) 11.8 - 14.6 % [facility] Comment:Testing performed by : [facility], [address] [place] [phone] NRBC abs 0.02(H) 0.00 - 0.01 K/cumm [facility] Comment:Testing performed by : [facility], [address] [place] [phone] Blood 02/28/2022 8:57 AM CDT 02/28/2022 9:00 AM CDT us Narcisa Kilgore CONTENT ANALYST LAB BLOOD ORDERABLES Pilar armas Result [facility] Department of Laboratories [place], [place] [address] documented in this encounter Visit Diagnoses Diagnosis 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)- Primary documented in this encounter Care Teams Training Mgr Relationship Specialty Start Date End Date Kirt Lindsay DO PCP - General Internal Medicine 02/02/21 Josué Del Valle MD PhD Medical Oncologist/Family Psychologist Medical Oncology 08/26/19 Tay Charlton MD Consulting Physician Gastroenterology 12/03/21 06/11/23 Halie Khan MD [address] [facility] [address] [place] [address] Consulting Physician Pulmonary Disease 12/12/21 3 Ant Starks MD [address] [address] Consulting Physician Transplant Hepatology 01/12/22 documented as of this encounter
--- OUTSIDE RECORDS SUMMARY | 2024-11-22 10:56 | XMS_ITS | Encounter Summary ---
Author Organization [facility] Address [address] [place] [address] Phone Care Team Providers Care Quality Technician Fiberglass Name Role Phone Josué Del Valle MD PhD Unavailable [phone] Kirt Lindsay DO Primary Care Provider [phone] Tay Charlton MD Unavailable [phone] Halie Khan MD Unavailable [phone] StarksAnt goldman MD Unavailable [phone] Encounter Details Date Type Department Care Team (Late st Contact Info) Description 02/02/2022 Telephone [facility] Surgery [address] [facility] Floor 1 [place] [address] Delmy Medeiros, BECKI Social History Tobacco Use Types Packs/Day Years [...] on file 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 Encouraged him to present to the ED for evaluation. documented in this encounter Plan of Treatment Not on file documented as of this encounter Visit Diagnoses Not on filedocumented in this encounter Care Teams Quality Technician Fiberglass Relationship Specialty Start Date End Date Kirt Lindsay DO PCP - General Internal Medicine 02/02/21 Josué Del Valle MD PhD Medical Oncologist/Building Rental Manager Medical Oncology 08/26/19 Tay Charlton MD Consulting Physician Gastroenterology 12/03/21 06/11/23 Halie Khan MD [address] [facility] [address] [place] [address] Consulting Physician Pulmonary Disease 12/12/21 3 Ant Starks MD [address] [facility] [address] [place] [address] Consulting Physician Transplant Hepatology 01/12/22 documented as of this encounter
--- OUTSIDE RECORDS SUMMARY | 2024-11-22 10:56 | XMS_ITS | Encounter Summary ---
Author Organization [facility] Address [address] [place] [address] Phone Care Team Providers Care Ocean Lifeguard Name Role Phone Josué Del Valle MD PhD Unavailable [phone] Kirt Lindsay DO Primary Care Provider [phone] Tay Charlton MD Unavailable [phone] Halie Khan MD Unavailable [phone] Ant Starks MD Unavailable [phone] Encounter Details Date Type Department Care Team (Late st Contact Info) Description 01/15/2022 Orders Only [facility] Oncology [address] [facility] Advanced Medicine 7th [place] [address] [place] [address] Bonnie Lara, RN Type 2 diabetes mellitus with hyperosmolarity 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, with long-term current use of insulin (CMS/HCC) (HCC) (Primary Dx); Vitamin D deficiency; Sfmfh-xptfcf-fbuj disease (HCC); Other osteoporosis without current pathological fracture; Screening for thyroid disorder Social History Tobacco [...] on file 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 Current interpretive data was last revised 2019. Creatinine Ur 42.0 mg/dL [facility] Comment: Interpretive Data No reference range established. Current interpretive data was last revised 2019. Albumin Creatinine Ratio, Ur <29 1 - 29 mg/g [facility] Urine 02/28/2022 8:57 AM CDT 02/28/2022 1:[address] Montejo MD LAB URINE ORDERABLES Final Resu lt [facility] Department [place] [address] * (ABNORMAL) Hemoglobin A1c (02/28/2022 8:57 AM CDT) Hgb A1C 7.9(H) 4.0 - 5.6 % [facility] Estimated Average Glucose 180 mg/dL [facility] Comment: The ADA recommends reporting an estimated Average Glucose (eAG) with all Hemoglobin A1c results using the equation derived from a study of 507 normal and diabetic adults. ??Minority populations were underrepresented and children were not included. ?? (Diabetes Care 2020; 43(S1): S66-S76). ??The eAG is not equivalent to a fasting glucose. Blood 02/28/2022 8:57 AM CDT 02/28/2022 9:[address] Montejo MD LAB BLOOD ORDERABLES Final Resu lt Performing Organization Address [facility] [place] [address] * TSH (02/28/2022 8:57 AM CDT) Thyroid Stimulating Hormone See Comment 0.30 - 4.20 mcIUnit/m L [facility] Comment:Credited, duplicate test. Blood 02/28/2022 8:57 AM CDT 02/28/2022 9:[address] Montejo MD LAB BLOOD ORDERABLES Final Resu lt Performing Organization Address [facility] de Phone Number [facility] [place] [address] * T4, free (02/28/2022 8:57 AM CDT) Free T4 1.15 0.90 - 1.70 ng/dL [facility] Blood 02/28/2022 8:57 AM CDT 02/28/2022 9:[address] Montejo MD LAB BLOOD ORDERABLES Final Resu lt Performing Organization Address [facility] [place] [address] documented in this encounter Visit Diagnoses Diagnosis Type 2 diabetes mellitus with hyperosmolarity 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, with long-term current use of insulin (HCC)- Primary Vitamin D deficiency Zjikf-mbhnle-kvuz disease (HCC) Other osteoporosis without current pathological fracture Screening for thyroid disorder documented in this encounter Care Teams Ocean Lifeguard Relationship Specialty Start Date End Date Kirt Lindsay DO PCP - General Internal Medicine 02/02/21 Josué Del Valle MD PhD Medical Oncologist/Material Flow Engineer Medical Oncology 08/26/19 Tay Charlton MD Consulting Physician Gastroenterology 12/03/21 06/11/23 Halie Khan MD [address] [facility] [address] [place] [address] Consulting Physician Pulmonary Disease 12/12/21 3 Ant Starks MD [address] [facility] [address] [place], [place] [address] Consulting Physician Transplant Hepatology 01/12/22 documented as of this encounter
--- OUTSIDE RECORDS SUMMARY | 2024-11-22 10:56 | XMS_ITS | Encounter Summary ---
Author Organization [facility] Address [address] [place] [address] Phone Care Team Providers Care Emergency Vehicle Operations Instructor Name Role Phone Josué Del Valle MD PhD Unavailable [phone] Kirt Lindsay DO Primary Care Provider [phone] Tay Charlton MD Unavailable [phone] Halie Khan MD Unavailable [phone] StarksAnt goldman MD Unavailable [phone] Encounter Details Date Type Department Care Team (Late st Contact Info) Description 02/07/2022 Telephone [facility] Marrow Transplant [address] [facility] Advanced Medicine 7th Floor, [place] [address] Josué Del Valle MD PhD [address] DIV BONE MARROW TRANSPLANT[address] [place] [address] Social History Tobacco Use Types [...] on file Legal Sex Male 10:48 AM [employer] Gender Identity Not on file Sexual Orientation Not on file documented as of this encounter Ordered Prescriptions Prescription Sig Dispense Quantity Refills Last Filled Start Date End Date rivaroxaban (Xarelto) 20 mg tabletIndications: 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) Take 1 tablet (20 mg total) by mouth daily 30 tablet 1 02/07/2022 05/14/2023 documented in this encounter Miscellaneous Notes * Telephone Encounter - Anaid Polanco RN - 02/07/2022 10:52 AM CDT Sent Script to [facility] * Telephone Encounter - Marisa Mcdermott - 02/07/2022 10:40 AM CDT [facility] calling for refill for Xarelto documented in this encounter Plan of Treatment Not on file documented as of this encounter Visit Diagnoses Diagnosis 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) documented in this encounter Discontinued Medications Medication Sig Discontinue Reason Start Date End Da te rivaroxaban (Xarelto) 20 mg tabletIndications: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) Take 1 tablet (20 mg total) by mouth daily Reorder 01/14/2022 02/07/2022 documented as of this encounter Care Teams Emergency Vehicle Operations Instructor Relationship Specialty Start Date End Date Kirt Lindsay DO PCP - General Internal Medicine 02/02/21 Josué Del Valle MD PhD Medical Oncologist/Business Services Analyst Medical Oncology 08/26/19 Tay Charlton MD Consulting Physician Gastroenterology 12/03/21 06/11/23 Halie Khan MD [address] [facility] [address] [place] [address] Consulting Physician Pulmonary Disease 12/12/21 3 Ant Starks MD [address] [facility] [address] [place] [address] Consulting Physician Transplant Hepatology 01/12/22 documented as of this encounter
--- OUTSIDE RECORDS SUMMARY | 2024-11-22 10:56 | XMS_ITS | Encounter Summary ---
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 portions of the case. Cosigned by Ant Starks MD at 01/13/2022 10:45 AM ALUMNAE SECRETARY NAE SECRETARY NAE SECRETARY * Pre-Procedure Instructions - Beata Crook NP - 01/08/2022 2:25 PM CST Center for Preoperative Assessment and Planning CPAP Clinic Location: [facility] The night before your surgery: * Do not eat anything after midnight the night before your procedure. and * Do not smoke after midnight the night before surgery. It is best to stop smoking now to improve your health. The morning of your surgery: * You may have clear liquids on your surgery day. You must stop drinking two hours before you arrive to the surgery facility. Acceptable clear liquids include water, clear sports drinks, black coffee, or clear soda. DO NOT drink any milk, creamer, or alcohol. * Your surgeon's office may have provided additional instructions or restrictions. Please follow those instructions. ?? * You may brush your teeth and rinse your mouth out. * Do not glue your dentures. * Do not wear jewelry, body piercings, makeup, hairpins, false eyelashes or contact lenses to the hospital. * Leave any valuables at home or with your family. * If you have an implantable device with a remote, bring the remote with you on the day of surgery. * If having surgery at [facility], you may want to bring a credit card if you want to use our Mobile Pharmacy for your discharge medications. Mobile pharmacy is not available at [facility], the [facility], or the [place] [facility]. Outpatient Surgery: * You must have a responsible adult drive you home and stay with you for 24 hours after your surgery * You cannot be alone at home or in a hotel * Please call your surgeon's office if you do not have someone to drive you home and/or stay with you after surgery If you have Diabetes: * If your blood sugar is low before you come to the hospital, drink a small amount of sugar water or clear juice like apple or cranberry juice. DO NOT drink orange or pineapple juice. These are not clear liquids. * If you take insulin be sure to read the Medicine Instructions. * Please call your surgeon and/or the CPAP Clinic if you have any questions. Instructions For Your Medications: Pre-Surgery Instructions: Medication Instructions ??? acyclovir (ZOVIRAX) 400 mg tablet Take morning of surgery ??? albuterol HFA (PROVENTIL HFA,VENTOLIN HFA,PROAIR HFA) 90 mcg/actuation inhaler Take on day of surgery if needed ??? calcium carbonate (Antacid Calcium) 500 mg (215 mg elemental) tablet,chewable Don't take on dayof surgery ??? cholecalciferol (VITAMIN D-3) 2000 unit capsule Don't take on day of surgery ??? ergocalciferol (VITAMIN D) 50,000 unit capsule Don't take on day of surgery ??? gabapentin (NEURONTIN) 300 mg capsule Take night prior to procedure per usual schedule ??? insulin glargine (LANTUS, BASAGLAR) 100 unit/mL (3 mL) pen for injection Take 9 units the nightprior to surgery ??? insulin lispro (HumaLOG, ADMELOG) 100 unit/mL pen for injection Don't take on day of surgery ??? montelukast (SINGULAIR) 10 mg tablet Don't take on day of surgery ??? mycophenolate mofetil (CELLCEPT) 500 mg tablet Per usual schedule ??? ofloxacin (OCUFLOX) 0.3 % ophthalmic solution Take morning of surgery ??? omega-3 fatty acids (LOVAZA) 1 gram capsule Don't take on day of surgery ??? oxygen Use per usual schedule ??? tacrolimus (PROGRAF) 0.5 mg immediate-release capsule Per usual schedule ??? Trelegy Ellipta 100-62.5-25 mcg inhaler Take morning of surgery ??? voriCONAZOLE (VFEND) 200 mg tablet Take morning of surgery ??? Xarelto 20 mg tablet Per surgeon instructions ??? atorvastatin (LIPITOR) 40 mg tablet States not taking . OK to take day of surgery if restarts medication ??? blood-glucose meter misc Take on day of surgery if needed ??? furosemide (LASIX) 20 mg tablet Don't take on day of surgery ??? pantoprazole DR (PROTONIX) 40 mg EC tablet States not taking ??? sucralfate (CARAFATE) 1 gram tablet Don't take on day of surgery Instructions For Your Insulin: ? Instructions for your GLARGINE (LANTUS / TOUJEO / BASAGLAR) insulin: take 9 units the night before surgery and take 0 units the morning of your surgery ?? Do NOT take SHORT-ACTING insulin (ASPART / NOVOLOG / FIASP, LISPRO / HUMALOG) on the day of surgery. ?? Make sure you check your blood sugar regularly. If your blood sugar is too low, you can drink clear drinks like apple juice or sugar water. Your surgeon will tell you IF YOU SHOULD STOP the following medications and WHEN TO STOP taking them. Do not stop taking them on your own without being told to do so: Xarelto General Instructions For Medications: ?? * Stop all of these medications 5 days prior to your surgery: excedrin, motrin, advil, ibuprofen, aleve, naproxen, meloxicam, celebrex, celecoxib.? For medications that you are instructed to take on the morning of surgery, take the medications with a few sips of water. ?? Stop all of these medications 7-14 days prior to your surgery: Vitamin E, Herbal medicines, DietPills ?? If you use inhalers, please bring them with you on the day of your procedure. ?? If you have pain, you may take tylenol (acetaminophen). Do not take more than 6 tablets or 3000 mg (3 g) within a 24 period. Call your surgeon and the CPAP clinic if any of the following happens before surgery: ?? Any changes in your health ?? You have a fever ?? You have any signs of an infection (chest, urinary tract or tooth) ?? You have been to the Emergency Room or were in the hospital ?? You have started taking any new medications ?? You have questions about a bowel prep or special diet before surgery NAE SECRETARY * Perioperative Nursing Note - Marisol Morales RN - 01/08/2022 2:01 PM ALUMNAE SECRETARY Center for Preoperative Assessment and Planning Perioperative Nursing Note Telephone Preoperative Evaluation ([facility]) - TELEPHONE ONLY, NO PHYSICAL EXAM Date: 01/08/22 Vitals: 01/08/22 1350 Weight: 63.5 kg (140 lb) Height: 179.7 cm (5' 10.75 ) CHEST CIRCUMFERENCE: Social History Tobacco Use Smoking Status Current Every Day Smoker ??? Packs/day: 0.50 ??? Years: 40.00 ??? Pack years: 20.00 ??? Types: Cigarettes ??? Start date: 1985 Smokeless Tobacco Never Used Tobacco Comment pt states tried to quit Substance and Sexual Activity Drug Use Never Alcohol Use How often do you have a drink containing alcohol?: Never How often do you have six or more drinks on one occasion?: Never Outpatient Medications Marked as Taking for the 01/12/22 encounter (Hospital Encounter) Medication Sig Dispense Refill ??? acyclovir (ZOVIRAX) 400 mg tablet TAKE 1 TABLET(400 MG) BY MOUTH EVERY 8 HOURS (Patient taking differently: Take 400 mg by mouth 3 (three) times a day) 270 tablet 1 ??? albuterol HFA (PROVENTIL HFA,VENTOLIN HFA,PROAIR HFA) 90 mcg/actuation inhaler Inhale 2 puffs every 4 (four) hours as needed for wheezing (Patient taking differently: Inhale 2 puffs every 4 (four) hours as needed for wheezing) 8.5 g 3 ??? calcium carbonate (Antacid Calcium) 500 mg (215 mg elemental) tablet,chewable Take 10,000 mg bymouth 2 (two) times a day as needed ??? cholecalciferol (VITAMIN D-3) 2000 unit capsule Take 2,000 Units by mouth every morning ??? ergocalciferol (VITAMIN D) 50,000 unit capsule TAKE 1 CAPSULE BY MOUTH ONCE A WEEK DIRECTED (Patient taking differently: Take 50,000 Units by mouth once a week TAKE 1 CAPSULE BY MOUTH ONCE A WEEK DIRECTED, saturdays) 12 capsule 3 ??? gabapentin (NEURONTIN) 300 mg capsule Take [...] mouth 2 (two) times a day ??? oxygen Administer 2 L/min into each nostril nightly Nightly and PRN ??? tacrolimus (PROGRAF) 0.5 mg immediate-release capsule Take 1 every other day (Patient taking differently: Take 0.5 mg by mouth every other day Take 1 every other day) 15 capsule 3 ??? Trelegy Ellipta 100-62.5-25 mcg inhaler INHALE 1 PUFF BY MOUTH DAILY (Patient taking differently: Inhale 1 puff every morning) 60 each 3 ??? voriCONAZOLE (VFEND) 200 mg tablet Take 1 tablet (200 mg total) by mouth 2 (two) times a day 60tablet 3 ??? Xarelto 20 mg tablet TAKE 1 TABLET(20 MG) BY MOUTH DAILY (Patient taking differently: Take 20 mg by mouth every morning) 30 tablet 1 Implants Bone Titanium Maynor - Implanted (Left) Leg As of 11/22/2018 Status: Implanted Lens Jus Surgical [id number].170 Acrysof Iq Natural Stableforce Acrysert 6mm 13mm 1 Piece Foldable - [id number] - [id number] - Implanted (Right) Lens Inventory item: JUS SURGICAL SN60WF.170 Acrysof Iq Natural Stableforce Acrysert 6mm 13mm 1 Piece Foldable Model/Cat number: [id number].170 Serial number: [id number] Outside Production Inspector: Unfold Device identifier: [id number] Device identifier type: 1 As of 05/12/2021 Status: Implanted Jus Surgical [id number].170 Acrysof Iq Natural Stableforce Acrysert 6mm 13mm 1 Piece Foldable - [id number] - [id number] - Implanted (Left) Eye Inventory item: JUS SURGICAL SN60WF.170 Acrysof Iq Natural Stableforce Acrysert 6mm 13mm 1 Piece Foldable Model/Cat number: [id number] Serial number: [id number] Outside Production Inspector: Unfold Lot number: 0 Device identifier: [id number] Device identifier type: GS1 As of 08/01/2021 Status: Implanted SKIN Piercings Remaining: No Wound (LDAs) Type of Wound (LDA): (NONE) SCREENINGS Lissa index score: 100 NUTRITION PATIENT CARE PLANNING Advance Directives (For Healthcare) Advance Directive: Patient does not have advance directive Information Provided on Healthcare Directives: No Communication/[employer] Officer Needs Communication Needs: Glasses Patient's Preferred Language: Armenian Does caregiver's language differ from patient's?: No Is an hog feeder needed? : No Assistive Devices/DME: Dentures lower, Dentures upper, Oxygen Hearing - Right Ear: Functional Hearing - Left Ear: Functional Discharge Planning Type of Residence: Private residence Living Arrangements: Friends Support Systems: Family members Patient expects to be discharged to:: Private residence COVID Screening Covid-19 Screening In the last 10 days have you had any new or worsening cough, SOB, fever (>=100F), body aches, loss of taste or smell, diarrhea or vomiting, or sore throat?: No Have you had close contact with anyone with confirmed or suspected COVID-19 in the past 10 days?: No Do you live in or work in a congregate living facility (ex. assisted living/fpc facility, long-term, fdc)?: No Have you tested positive for COVID-19 within the last 10 days?: No Have you previously tested positive for COVID-19? No Have you had a COVID -19 exposure within the past 14 days? No Were both or all people exposed wearing masks (cloth, isolation, surgical or N95)? No TESTING PLAN-See Instructions for plan We recommend you Self-Isolate after COVID Testing: Stay at home, if possible until your surgery date. Maintain a 6 foot distance from other people (social distancing). Avoid touching your eyes, nose and mouth with unwashed hands. Wash your hands often with soap and water for at least 20 seconds. Use an alcohol- based hand machining technician that contains at least 60% alcohol if soap and water are not available. ADDITIONAL COMMENTS/ FOLLOW UP NAE SECRETARY * Pre-Procedure Instructions - Marisol Morales RN - 01/08/2022 1:59 PM ALUMNAE SECRETARY CENTER FOR PREOPERATIVE ASSESSMENT AND PLANNING (CPAP) PRE-SURGICAL NURSING INSTRUCTIONS Telephone Assessment General Information Discussed with Patient: 1. Surgery location provided to patient. 2. Arrival time and surgical time will be provided to the patient by their surgeon. 3. You should wear clothing that is clean, loose, comfortable and easy to get in and out of on the day of surgery. 4. You should leave your valuables and any jewelry at home. No metal or piercings are allowed in the operating room. 5. You should bring your insurance card, a photo ID (example: Information Security Systems Instructor's License) and a method of payment for any insurance copay, deductible or copay for discharge medications. 6. You should bring a complete, up-to-date list of all your medications on the day of surgery, including any over the counter medications or supplements you may take. 7. You should bring your Advanced Directive and/or Living Will with you on the day of surgery if you have not verified a copy is already in your Epic Chart. A Guide for Patients Having Surgery: Your Pathway to Excellent Care OUR GOAL IS TO PROVIDE YOU WITH EXCELLENT CARE Use this guide to learn about what you can do before, during and after surgery to help your recovery. You are the most important person on your health care team. By becoming informed and involved, you can contribute to the success of your surgery. ??? If your surgeon's directions are different than those in this guide, talk with your nurse or surgeon to confirm the information. ??? It is important that you understand how to take care of yourself at home after surgery. ??? Be sure to bring this guide with you on the day of surgery and take it home with you after surgery. ??? Write down questions for your nurse or surgeon on the last page of this booklet. Important pages to be reviewed BEFORE surgery: Page 1: QR codes for Surgery Center maps Page 3: Types of Anesthesia Page 5: Tips for the day & night before surgery Page 6: When to stop eating BEFORE surgery and examples of clear liquids Page 7-10: Preventing Infection: Chlorhexidine Gluconate (CHG) Bathing Instructions You may access A Guide for Patients Having Surgery: Your Pathway to Excellent Care by the followinglink: [email or web address] How To Prepare Your Skin For Surgery Below is the Pre-Surgical Bathing Protocol you should follow for your surgery. If your surgeon provides you different bathing instructions, please follow your surgeon's orders. 2 Day CHG Bathing Protocol (no nasal ointment) PREVENTING INFECTION (DECOLONIZATION): Decolonization is the use of a topical antiseptic soap and sometimes a nasal ointment to remove bacteria (germs) from the skin's surface. Antiseptic soap: Chlorhexidine gluconate or CHG (brand name: Hibiclens??) ??? Before surgery, your entire body must be thoroughly cleaned. CHG helps to reduce the bacteria on your skin. ??? You may be given one or more bottles of CHG or you may be asked to obtain from your preferred pharmacy. Be sure to ask your pharmacist if you need help finding this product. SHOWERING WITH ANTISEPTIC SOAP (CHG) What You Need For Each Shower ??? 60 mL (?? cup) of CHG ??? 2 clean washcloths CHG Bathing Instructions 1. First, shampoo and rinse your hair with your own shampoo (no conditioners). Do this so the antiseptic soap isn't washed off by your shampoo. 2. Wash face with warm water. 3. Turn off shower and stand away from the water. 4. Use 2 clean washcloths to apply the antiseptic soap to all areas as described below: Pour 30 mL (1/8 cup) of CHG on washcloth #1: Using washcloth- start at jawline and firmly massage the soap into the skin in a circular motion to clean neck, shoulders, chest, back, both armpits, arms, hands and abdomen. Finish with legs and feet. Pour 30 mL (1/8 cup) of CHG on washcloth #2: Using washcloth- firmly massage the soap into the skinin a circular motion to clean groin area, perineum and buttocks. (Do not use CHG on genital area.) [place]: ??? The CHG antiseptic soap will not bubble or lather very much. ??? If you get soap in your eyes, ears or mouth, rinse well with cool water. ??? When finished, leave the soap on your skin for 2 minutes before rinsing. ??? Dry off with a clean fresh towel. ??? Wear clean clothes or pajamas to sleep in. ??? After showering DO NOT put on deodorant, hair products or conditioners, lotions or creams, powders, Vaseline or any non-essential products. ??? If you cannot reach the surgical site, such as the back, please have someone help you. Shaving: ??? You may shave your face, legs and underarms during your evening shower before you apply the CHGantiseptic soap. Be careful not to cut or peyton your skin. ??? Avoid shaving on the day of surgery. Deodorant: ??? Patients following the 5-Day CHG protocol may apply deodorant on the days leading up to surgery, being sure, however, to avoid use on the evening before and day of surgery. All other products should be avoided for the full 5 days. 2-Day CHG Bathing Protocol The Evening Before Surgery: Take a shower with Antiseptic soap (CHG). Follow the steps for ???Showering with Antiseptic Soap (CHG)?? above. ??? Change all linens on your bed so you are sleeping in clean fresh sheets and pillowcases. ??? Remove nail coverings, artificial nails and nail ugandan. The Morning of Surgery: Take a shower with Antiseptic soap (CHG). Follow the steps for ???Showering with Antiseptic Soap (CHG)?? above. ??? Put clean clothes on after you shower. COVID TESTING PLAN: Please note, the below is the Pre-Procedure COVID Testing Plan for the Center for Preoperative Assessment & Planning for Anesthesia. Surgeon's offices may require additional testing. If so, the surgeon's office will reach out to the patient to discuss further testing. Patient's COVID-19 vaccination status: Patient states that they are fully COVID vaccinated and COVID vaccination information verified through Epic Immunization Registry Database. Patient has not received COVID Booster. COVID Test Plan: COVID Test unable to be set up by CPAP at this time related to patient unable to go to a [facility] Testing Site. In-basket Message sent to Surgeon's Messaging Pool stating that patient is unable to go to [facility] Testing Site for COVID Test & surgeon's office needs to contact patient and set up COVID Test for patient. Patient is aware and has been notified to follow up with surgeon's office to get local COVID Testing set up. . If you are going to a [facility] Testing Site for COVID testing, please arrive at least 30 minutes PRIOR to lab closing time. If you have COVID testing or should have COVID testing for your surgery/procedure, please read below section: If you need to reschedule your COVID test to a different location or if your surgery gets rescheduled, you MUST call [phone] Saturday-Saturday 8am-4:30pm to get your COVID testing rescheduled or your lab order will not be available at Testing Sites. COVID Testing is only valid for up to 96 hours prior to surgery date, unless otherwise specified. If you are unable to reach staff at the above phone number, please call the CPAP Staff at [phone]. This number cannot order a lab test, but can attempt to contact the above number/staff to assist you. CPAP Staff are available Saturday- Saturday 8am-5pm. We recommend you Self-Isolate after COVID Testing: Stay at home, if possible, until your surgery date. Maintain a 6-foot distance from other people (social distancing) and wear a face mask if you areable. Avoid touching your eyes, nose and mouth with unwashed hands. Wash your hands often with soapand water for at least 20 seconds. Use an alcohol-based hand machining technician that contains at least 60% alcohol if soap and water are not available. These are general guidelines, but if have been told by aphysician that you should not perform any of the above, please follow physician's guidelines. All patients should read below section: All visitors/patients are being asked to wear a clean face mask when entering the hospital. COVID 19 Updates & Visitor Policy: Please access [email or web address] for the most updated information. Information on [facility]: Please view [email or web address] (Patient & Visitor Information) for additional details regarding Advanced Directive forms, AWARE, directions, parking information, lodging, Internet access, dining and more. For MyChart information, to activate account or password recovery, please go to [email or web address] or call [phone] (toll-free: [phone]). Information for Suicide Prevention: National Suicide Prevention Lifeline (2-155- 251-PJGT (0943)). Surgery Times: For patients having surgery @ [facility], [facility] or [facility], if your surgeon's office has not notified you of your surgery time by NOON THE BUSINESS DAY BEFORE your surgery, please call [phone] and ask for your surgeon'soffice NAE SECRETARY documented in this encounter Plan of Treatment Not on file documented as of this encounter Procedures Procedure Name Priority Date/Time Associated Diagnosis Comments POCT GLUCOSE DEVICE Routine 01/12/2022 5 :06 PM ALUMNAE SECRETARY POCT GLUCOSE DEVICE Routine 01/12/2022 3 :45 PM ALUMNAE SECRETARY POCT GLUCOSE DEVICE Routine 01/12/2022 2 :55 PM ALUMNAE SECRETARY SURGICAL PATHOLOGY Routine 01/12/2022 1: 52 PM ALUMNAE SECRETARY Biliary sludge LAPAROSCOPIC CHOLECYSTECTOMY 01/12/2022 12:24 PM ALUMNAE SECRETARY Biliary sludge POC BLOOD GAS AND CHEMISTRIES, ARTERIAL Routine 01/12/2022 11:33 AM ALUMNAE SECRETARY documented in this encounter Results * POCT glucose (01/12/2022 5:06 PM ALUMNAE SECRETARY) Glucose, POC 181 70 - 199 mg/dL [facility] Blood 01/12/2022 5:06 PM ALUMNAE SECRETARY 01/12/2022 5:06 PM ALUMNAE SECRETARY Ant Starks MD LAB POCT ORDERABLES - DEVICE Final Result Performing Organization Address City/[facility]/ZIP Co de Phone Number [facility] [place] [address] * (ABNORMAL) POCT glucose (01/12/2022 3:45 PM ALUMNAE SECRETARY) Glucose, POC 211(H) 70 - 199 mg/dL [facility] Blood 01/12/2022 3:45 PM ALUMNAE SECRETARY 01/12/2022 3:45 PM ALUMNAE SECRETARY Ant Starks MD LAB POCT ORDERABLES - DEVICE Final Result Performing Organization Address City/[facility]/ZIP Co de Phone Number [facility] Department [place] [address] * (ABNORMAL) POCT glucose (01/12/2022 2:55 PM ALUMNAE SECRETARY) Glucose, POC 240(H) 70 - 199 mg/dL [facility] Blood 01/12/2022 2:55 PM ALUMNAE SECRETARY 01/12/2022 2:55 PM ALUMNAE SECRETARY Ant Starks MD LAB POCT ORDERABLES - DEVICE Final Result [facility]ULEMA [facility] Department [place] [address] * Surgical pathology (01/12/2022 1:52 PM ALUMNAE SECRETARY) Tissue (Gallbladder) 01/12/2022 1:52 PM ALUMNAE SECRETARY Narrative PATHOLOGY [facility] - 01/18/2022 3:53 PM ALUMNAE SECRETARY EPIC results best viewed via link to PDF [facility] [place] [address] Note to Patients: This report may contain [...] BRI JONES Gender: ??M : ??1965 (Age: 56) Address: ??[address] [place], [place] ??[address] Hospital #: ??[id number] Taken:01/12/2022 Received:01/12/2022 Reported: 01/18/2022 Patient Type: [facility] SDS ?? Service: Surgery Location: [facility] Physician(s): ??Ant Starks M.D. Kirt Lindsay, DO Diagnosis: Gallbladder, cholecystectomy ? - Chronic cholecystitis erg/01/18/2022 15:49 By this signature, I attest that the above diagnosis is based upon my personal examination of the slides(and/or other material indicated in the diagnosis). Reno Redd M.D. Report Electronically Reviewed and Signed Out By ??Reno Redd M.D. 01/18/2022 15:53:22 Microscopic Description and Comment: Microscopic examination substantiates the above cited diagnosis. Elis Hernandez M.D. History: The patient is a 56-year-old man with biliary sludge. ??Operative procedure: Laparoscopic cholecystectomy. Specimen(s) Received: A: Gallbladder Gross Description: Received in formalin labeled with the patient's identifiers and gallbladder is a 7.5 x 2.7 x 1.7 cm intact gallbladder specimen with an attached 0.3 cm in length by 0.5 cm in diameter probe-patent cystic duct, which is inked black. ??The serosa is freed-white, smooth and glistening and the hepatic bed is roughened and shows cautery artifact. ??Upon opening, the gallbladder contains green-brown viscous bile with no calculi identified. ??The mucosa is bile stained and velvety, and the wall measures 0.2 cm in maximum thickness. ??Labeled A1- cystic duct margin, en face, and scheduling representative gallbladder from fundus, body and neck. ??Jar 1. dxb/01/15/2022 19:52 PA(s): GABE Washington By this signature, I attest that the above diagnosis is based upon my personal examination of the slides(and/or other material). 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 ??It has not been cleared or approved by the U. S. Food and Drug Administration. IMAGES AND SCANNED DOCUMENTS, IF INCLUDED, ONLY VIEWABLE IN PDF VERSION OF REPORT Ant Starks MD LAB PATHOLOGY ORDERA BLES Final Result Performing Organization Address [facility]/ZIP Co de Phone Number [facility] 3rd Floor [place], [place] [phone] * (ABNORMAL) POC Blood Gas and Chemistries, Arterial - (01/12/2022 11:33 AM ALUMNAE SECRETARY) K POC 4.3 3.3 - 4.9 mmol/L [facility] Comment: Interpretive Data Unable to assess hemolysis. ??Invitro hemolysis causes falsely elevated potassium. Current Interpretive Data was last revised on 2020. Glucose, POC 234(H) 70 - 199 mg/dL [facility] Hct, POC 42.0 41.4 - 51.6 % [facility] Total Hb, POC 13.9 13.8 - 17.2 g/dL [facility] Blood 01/12/2022 11:3 3 AM ALUMNAE SECRETARY 01/12/2022 11:33 AM ALUMNAE SECRETARY Ant Starks MD LAB POCT ORDERABLES - DEVICE Final Result Performing Organization Address [facility]/ZIP Co de Phone Number [facility] Department [place] [address] documented in this encounter Visit Diagnoses Diagnosis Biliary sludge- Primary Other specified disorders of biliary tract Biliary sludge Other specified disorders of biliary tract 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 Given 01/12/2022 11:18 AM ALUMNAE SECRETARY 1,000 mg dexAMETHasone (DECADRON) 4 mg, bupivacaine (MARCAINE) 60 mL solution As needed, Starting on Sat01/12/22 at 1404, Intra-Op Given 01/12/2022 2:04 PM ALUMNAE SECRETARY 61 mL Surgical Site dextrose (D10W) 10% bolus 250 mL 250 mL, intravenous, at 1,000 mL/hr, Administer over 15 Minutes, Every 15 min PRN, blood glucose less than 70 mg/dL and UNABLE to swallow/take PO glucose/juice., Starting on Sat01/12/22 at 1551, After treatment for hypoglycemia, recheck BG followed by treatment every 15 minutes until the BG is greater than 100 mg/dL. Then check BG 1 hour post treatment. If BG is less than 100 mg/dL, repeat Q15 minute BG checks and treatment. Call MD for each episode of hypoglycemia., Indications: hypoglycemic disorderIndications:h ypoglycemic disorder dextrose (GLUTOSE) 40 % gel 15 g 15 g, oral, Every 15 min PRN, low blood sugar, blood glucose less than 70 mg/dL, Starting on Sat01/12/22 at 1551, If patient is alert and able to [...] Call MD for each episode of hypoglycemia. CREDIT RISK REVIEW OFFICER STATES GLUTOSE-15 CONTAINS GLUCOSE 40% W/W (50% W/V), Indications: hypoglycemic disorderIndications:h ypoglycemic disorder gabapentin (NEURONTIN) capsule 300 mg 300 mg, oral, Once, On Sat01/12/22 at 1130, For 1 dose, Pre-Op, Administer 60 minutes prior to surgery. Given 01/12/2022 11:18 AM ALUMNAE SECRETARY 300 mg heparin 5,000 unit/mL injection 5,000 Units 5,000 Units, subcutaneous, Once, On Sat01/12/22 at 1130, For 1 dose, Pre-Op, Indications: Deep Vein Thrombosis PreventionIndications :Deep Vein Thrombosis Prevention Given 01/12/2022 11:52 AM ALUMNAE SECRETARY 5,000 Units Right Lower Abdomen insulin lispro (HumaLOG, ADMELOG) 100 unit/mL injection 0-5 Units 0-5 Units, subcutaneous, Every 4 hours scheduled, First dose on Sat01/12/22 at 1630, Blood glucose mg/dL: 149 or less: No insulin 150-199: add 1 unit 200-249: add 2 units 250-299: add 3 units 300-349: add 4 units and notify physician for adjustment of insulin orders. 350-399: add 5 units and notify physician for adjustment of insulin orders. Over 400: Notify physician for adjustment of insulin orders. Do NOT hold for NPO Status, Indications: Diabetes MellitusIndications:D iabetes Mellitus Given 01/12/2022 4:02 PM ALUMNAE SECRETARY 2 Units Right Upper Arm Lactated Ringer's (LR) infusion 30 mL/hr, intravenous, Continuous, Starting on Sat01/12/22 at 1130, Pre-Op New Bag 01/12/2022 3:22 PM ALUMNAE SECRETARY 30 mL/hr 30 mL/hr Lactated Ringer's (LR) infusion 30 mL/hr, intravenous, Continuous, Starting on Sat01/12/22 at 1130 Restarted 01/12/2022 12:21 PM ALUMNAE SECRETARY New Bag 01/12/2022 11:35 AM ALUMNAE SECRETARY 30 mL/hr 30 mL/hr sodium chloride 0.9% irrigation As needed, Starting on Sat01/12/22 at 1312, Intra-Op Given 01/12/2022 1:12 PM ALUMNAE SECRETARY 2,000 mL Surgical Site sterile water irrigation As needed, Starting on Sat01/12/22 at 1312, Intra-Op Given 01/12/2022 1:12 PM ALUMNAE SECRETARY 1,000 mL Other (Comment) documented in this encounter Discontinued Medications Medication Sig Discontinue Reason Start Date End Da te lancets 30 gauge misc 05/27/2021 01/08/2022 Alcohol Prep Pads pads, medicated 05/27/2021 01/08/2022 blood glucose diagnostic stripIndications:Type 2 diabetes mellitus with hyperosmolarity 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, with long-term current use of insulin (HCC) Check blood sugar tid 01/15/2020 01/08/2022 prednisoLONE acetate (PRED FORTE) 1 % ophthalmic suspension Administer 1 drop into the left eye 4 (four) times a day 08/09/2021 01/08/2022 Xarelto 20 mg tabletIndications: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 calcium carbonate (TUMS) 500 mg (215 mg elemental) tablet,chewableIn dications:Augustin rn Take 20 tablets (10,000 mg total) by mouth 2 (two) times a day as needed 02/20/2024 added in this encounter Active and Recently Administered Medications Times are shown in ALUMNAE SECRETARY. Scheduled Medication Order 01/10/2022 01/11/2022 01/12/2022 acetaminophen (TYLENOL) tablet 1,000 mg (COMPLETED) 1,000 mg, oral, Once, On Sat01/12/22 at 1130, For 1 dose, Pre-Op, Administer 60 minutes prior to surgery. 1118 (Given - Provid er: Jean Tyler RN) acetaminophen (TYLENOL) tablet 500 mg 500 mg, oral, Once, On Sat01/12/22 at 1530, For 1 dose, Phase I, When able to tolerate PO., Indications: Pain 1530 (Due) ceFAZolin (ANCEF) 2,000 mg/20 mL in sterile water (premix) 2,000 mg (COMPLETED) 2,000 mg, intravenous, at 400 mL/hr, Administer over 3 Minutes, Once, On Sat01/12/22 at 1130, For 1 dose, Pre-Op, Administer within 60 minutes of incision., Indications: Prophylaxis, Surgical 1245 (Given - Provid er: Bogdan Quinteros CRNA) gabapentin (NEURONTIN) capsule 300 mg (COMPLETED) 300 mg, oral, Once, On Sat01/12/22 at 1130, For 1 dose, Pre-Op, Administer 60 minutes prior to surgery. 1118 (Given - Provid er: Jean Tyler RN) heparin 5,000 unit/mL injection 5,000 Units (COMPLETED) 5,000 Units, subcutaneous, Once, On Sat01/12/22 at 1130, For 1 dose, Pre-Op, Indications: Deep Vein Thrombosis Prevention 1152 (Given - Provid er: Jean Tyler RN) insulin lispro (HumaLOG, ADMELOG) 100 unit/mL injection 0-5 Units 0-5 Units, subcutaneous, Every 4 hours scheduled, First dose on Sat01/12/22 at 1630, Blood glucose mg/dL: 149 or less: No insulin 150-199: add 1 unit 200-249: add 2 units 250-299: add 3 units 300-349: add 4 units and notify physician for adjustment of insulin orders. 350-399: add 5 units and notify physician for adjustment of insulin orders. Over 400: Notify physician for adjustment of insulin orders. Do NOT hold for NPO Status, Indications: Diabetes Mellitus 1602 (Given - Provid er: Yasmeen Bingham RN) Continuous Medication Order 01/10/2022 01/11/2022 01/12/2022 Lactated Ringer's (LR) infusion 30 mL/hr, intravenous, Continuous, Starting on Sat01/12/22 at 1130, Pre-Op 1130 (Due)1522 (New Bag - Provider: Yasmeen Bingham RN) Lactated Ringer's (LR) infusion 30 mL/hr, intravenous, Continuous, Starting on Sat01/12/22 at 1130 1135 (New Bag - Prov ider: Jean Tyler RN)1220 (Paused - Provider: Bogdan Quinteros CRNA - Comment: Switch to gravity)1221 (Restarted - Provider: Bogdan Quinteros CRNA)1415 (Anesthesia Volume Adjustment - Provider: Bogdan Quinteros CRNA) PRN Medication Order 01/10/2022 01/11/2022 01/12/2022 dexAMETHasone (DECADRON) 4 mg, bupivacaine (MARCAINE) 60 mL solution (CANCELED) As needed, Starting on Sat01/12/22 at 1404, Intra-Op 1404 (Given - Provid er: Ant Starks MD - Comment: TAP BLOCK) dextrose (D10W) 10% bolus 250 mL(Linked Group 1) 250 mL, intravenous, at 1,000 mL/hr, Administer over 15 Minutes, Every 15 min PRN, blood glucose less than 70 mg/dL and UNABLE to swallow/take PO glucose/juice., Starting on Sat01/12/22 at 1551, After treatment for hypoglycemia, recheck BG followed [...] glucose less than 70 mg/dL, Starting on Sat01/12/22 at 1551, If patient is alert and able to [...] Call MD for each episode of hypoglycemia. CREDIT RISK REVIEW OFFICER STATES GLUTOSE-15 CONTAINS GLUCOSE 40% W/W (50% W/V), Indications: hypoglycemic disorder glucagon injection 1 mg 1 mg, intramuscular, Every 30 min PRN, low blood sugar, blood glucose less than 70 mg/dL AND no IV access AND unable to take PO glucose/juice., Starting on Sat01/12/22 at 1551, After Glucagon is administered, position patient on [...] Use immediately following reconstitution. HYDROmorphone (DILAUDID) injection 0.2 mg 0.2 mg, intravenous, Administer over 2 Minutes, Every 10 min PRN, 1st line for pain, Starting on Sat01/12/22 at 1453, Phase I, Switch to 2nd line analgesic order if pain is uncontrolled or increasing after 2 doses. Notify Anesthesiologist if total PACU dose reaches 2 mg and pain score 5/10 or more., Indications: Pain HYDROmorphone (DILAUDID) injection 0.4 mg 0.4 mg, intravenous, Administer over 2 Minutes, Every 10 min PRN, 2nd line for pain, Starting on Sat01/12/22 at 1453, Phase I, May administer 10 mintes after 2nd dose of 1st line analgesic agent for uncontrolled or increasing pain. Revert to 1st line dose if POSS of 3. Notify Anesthesiologist if total PACU dose reaches 2 mg and pain score 5/10 or more., Indications: Pain naloxone (NARCAN) 0.4 mg/mL injection 0.04-0.4 mg 0.04-0.4 mg, intravenous, Once as needed, other, excessive sedation/respiratory depression, Starting on Sat01/12/22 at 1453, For 1 dose, Phase I, Dilute 0.4 mg with 9 mL NS (final concentration 0.04 mg/mL). For respiratory depression (respiratory rate less than 6), administer 0.4 mg IVP over 30 seconds. For excessive sedation administer 0.04 mg (1 mL) every 1 minute until desired level of alertness. For IV, administer over 30 seconds., Indications: Opioid Toxicity ondansetron (ZOFRAN) injection 4 mg 4 mg, intravenous, Administer over 2 Minutes, Once as needed, nausea, vomiting, Starting on Sat01/12/22 at 1453, For 1 dose, Phase I oxyCODONE (ROXICODONE) tablet 10 mg 10 mg, oral, Once as needed, 1st line for pain, Starting on Sat01/12/22 at 1453, For 1 dose, Phase I, When able to tolerate PO., Indications: Pain sodium chloride 0.9% irrigation (CANCELED) As needed, Starting on Sat01/12/22 at 1312, Intra-Op 1312 (Given - Provid er: Loren Marcum RN - Comment: PRN irrigation 1L suction package collector; 1L on back table) sterile water irrigation (CANCELED) As needed, Starting on Sat01/12/22 at 1312, Intra-Op 1312 (Given - Provid er: Loren Marcum RN - Comment: PRN instrument wash) Linked Groups Order Group 1: dextrose (GLUTOSE) 40 % gel 15 gJump to med 15 g, oral, Every 15 min PRN, low blood sugar, blood glucose less than 70 mg/dL, Starting on Sat01/12/22 at 1551, If patient is alert and able to [...] Call MD for each episode of hypoglycemia. CREDIT RISK REVIEW OFFICER STATES GLUTOSE-15 CONTAINS GLUCOSE 40% W/W (50% W/V), Indications: hypoglycemic disorder Or dextrose (D10W) 10% bolus 250 mLJump to med 250 mL, intravenous, at 1,000 mL/hr, Administer over 15 Minutes, Every 15 min PRN, blood glucose less than 70 mg/dL and UNABLE to swallow/take PO glucose/juice., Starting on Sat01/12/22 at 1551, After treatment for hypoglycemia, recheck BG followed [...] Count Last Ordered Date First Ordered Date acetaminophen (TYLENOL) tablet 500 mg ceFAZolin (ANCEF) 2,000 mg/2 0 mL in sterile water (premix) 2,000 mg 1 01/12/2022 dextrose (D10W) 10% bolus 250 mL 01/12/20 dextrose (GLUTOSE) 40 % gel 15 g 01/12/20 glucagon injection 1 mg 01/12/2022 HYDROmorphone (DILAUDID) injection 0.2 mg 1 01/12/2022 HYDROmorphone (DILAUDID) injection 0.4 mg 01/12/2022 naloxone (NARCAN) 0.4 mg/mL injection 0.04-0.4 mg 1 01/12/2022 ondansetron (ZOFRAN) injection 4 mg 1 01/12 oxyCODONE (ROXICODONE) tablet 10 mg 1 01/12 sodium chloride 0.9% flush 0.5-20 mL 2 12/20 Diet Count Last Ordered Date First Orde red Date ADULT DISCHARGE DIET 1 01/12/2022 Nursing Count Last Ordered Date First Orde red Date DISCHARGE ACTIVITY 2 01/12/2022 DISCHARGE CALL PROVIDER 3 01/12/2022 DISCHARGE DRESSING 2 01/12/2022 FOLLOW UP WITH ESTABLISHED PROVIDER 1 01/12 documented in this encounter Care Teams Tenant Coordinator Relationship Specialty Start Date End Date Kirt Lindsay DO PCP - General Internal Medicine 02/02/21 Josué Del Valle MD PhD Medical Oncologist/Linux Engineer Medical Oncology 08/26/19 Tay Charlton MD Consulting Physician Gastroenterology 12/03/21 06/11/23 Halie Khan MD [address] [place], [place] [id number] Consulting Physician Pulmonary Disease 12/12/21 3 Ant Starks MD [address] [place], [place] [id number] Consulting Physician Transplant Hepatology 01/12/22 documented as of this encounter
--- OUTSIDE RECORDS SUMMARY | 2024-11-22 10:56 | XMS_ITS | Encounter Summary ---
Author Organization [facility] Address [address] [place] [address] Phone Care Team Providers Care Rn Advanced Name Role Phone Josué Del Valle MD PhD Unavailable [phone] Kirt Lindsay DO Primary Care Provider [phone] Tay Charlton MD Unavailable [phone] Halie Khan MD Unavailable [phone] StarksAnt goldman MD Unavailable [phone] Encounter Details Date Type Department Care Team (Late st Contact Info) Description 02/26/2022 Telephone [facility] Oncology [address] [facility] 7th [place] [address] [place] [id number] Irina Conrad Social History Tobacco Use Types [...] on file Legal 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 Gender Identity Not on file Sexual Orientation Not on file documented as of this encounter Miscellaneous Notes * Telephone Encounter - Narcisa Kilgore NP - 02/26/2022 12:52 PM CDT Added labs documented in this encounter Plan of Treatment Not on file documented as of this encounter Visit Diagnoses Not on filedocumented in this encounter Care Teams Rn Advanced Relationship Specialty Start Date End Date Kirt Lindsay DO PCP - General Internal Medicine 02/02/21 Josué Del Valle MD PhD Medical Oncologist/Seat Covers Trimmer Medical Oncology 08/26/19 Tay Charlton MD Consulting Physician Gastroenterology 12/03/21 06/11/23 Halie Khan MD [address] [address] Consulting Physician Pulmonary Disease 12/12/21 3 Ant Starks MD [address] [address] Consulting Physician Transplant Hepatology 01/12/22 documented as of this encounter
--- OUTSIDE RECORDS SUMMARY | 2024-11-22 10:57 | XMS_ITS | Encounter Summary ---
Author Organization [facility] Address [address] [place] [address] Care Team Providers Care Tobacco Wrapping Machine Tender Name Role Phone Josué Del Valle MD PhD Unavailable [phone] Kirt Lindsay DO Primary Care Provider [phone] Encounter Details Date Type Department Care Team (Latest Contact Info) Description 11/14/2021 7:35 AM DISPOSAL PLANT OPERATOR - 11/14/2021 11:59 PM DISPOSAL PLANT OPERATOR Hospital Encounter [facility] [address] [address] Discharge Disposition: Discharge to home or self care Social History Tobacco Use Types Packs/Day Years Used Date Smoking Tobacco: Every Day Cigarettes 1 40 Started: 1985 Smokeless Tobacco: Never Comments:pt states tried to quit AUDIT-C Answer Date Recorded Q1: How often do you have a drink containing alc ohol? Never 09/07/2021 Average Number of Drinks Not on file 021 Q3: How often do you have si x or more drinks on one occasion? 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) INHALE 1 TO 2 PUFFS BY MOUTH EVERY 4 HOURS NEEDED FOR WHEEZING 8.5 g 3 1 11/15/20 21 Alcohol Prep Pads pads, medicated 1 01/08/20 22 atorvastatin (LIPITOR) 40 mg tabletIndications:AML (acute myeloid leukemia) in remission ([facility]),Type 2 diabetes mellitus with hyperglycemia, with long-term current use of insulin ([facility]),Thmfq-tmzgea-oqcf disease ([facility]),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[facility]),Pure hypercholesterolemia Take 1 tablet (40 mg total) by mouth daily 30 tablet 6 0 07/30/20 24 blood glucose diagnostic stripIndications:Type 2 diabetes mellitus with hyperosmolarity 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, with long-term current use of insulin ([facility]) Check blood sugar tid 100 each 4 0 01/08/20 22 blood-glucose meter miscIndications:Type 2 diabetes mellitus with hyperosmolarity 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, with long-term current use of insulin ([facility]) 1 Device 3 (three) times a day 1 each 9 02/20/20 24 ergocalciferol (VITAMIN D) 50,000 unit capsuleIndications:AML (acute myeloid leukemia) in remission ([facility]),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 30 tablet 0 02/20/20 24 gabapentin (NEURONTIN) 300 mg capsuleIndications:Type 2 diabetes mellitus with hyperosmolarity 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, with long-term current use of insulin ([facility]) TAKE 1 CAPSULE BY MOUTH FOUR TIMES DAILY 120 capsule 3 1 12/07/19 22 insulin glargine (LANTUS, BASAGLAR) 100 unit/mL (3 mL) pen for injectionIndications:Typ e 2 diabetes mellitus with hyperosmolarity 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, with long-term current use of insulin ([facility]) INJECT 15 UNITS NIGHTLY SUB-Q. 1 pen 5 1 02/20/20 24 insulin lispro (HumaLOG, ADMELOG) 100 unit/mL pen for injectionIndications:Typ e 2 diabetes mellitus with hyperosmolarity 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, with long-term current use of insulin ([facility]) INJECT 5-10 UNITS TID WITH MEALS PLUS SLIDING SCALE. TDD OF 35 UNITS. 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),Kyvzc-piyxiv-wjvd disease (HCC) TAKE 2 TABLETS(1000 MG) BY MOUTH TWICE DAILY 180 tablet 3 1 04/11/20 22 ofloxacin (OCUFLOX) 0.3 % ophthalmic solution Administer 1 drop into the left eye 4 (four) times a day 5 mL 11 1 02/15/[address] (PROTONIX) 40 mg EC tablet Take 1 tablet (40 mg total) by mouth daily 30 tablet 1 02/29/20 22 prednisoLONE acetate (PRED FORTE) 1 % ophthalmic suspension Administer 1 drop into the left eye 4 (four) times a day 5 mL 11 01/08/20 22 sucralfate (CARAFATE) 1 gram tablet Take 1 tablet (1 g total) by mouth 2 (two) times a day for 10 days 20 tablet 02/15/20 22 tacrolimus (PROGRAF) 0.5 mg immediate-release capsuleIndications: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) TAKE 1 CAPSULE BY MOUTH EVERY OTHER DAY 15 capsule 3 1 12/07/19 22 Trelegy Ellipta 100-62.5-25 mcg inhalerIndications: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),Ctnel-aksqvh-tqpt disease (HCC),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HCC) INHALE 1 PUFF BY MOUTH DAILY 60 each 3 1 02/14/20 22 voriCONAZOLE (VFEND) 200 mg tabletIndications:stem Cell Transplant Take 200 mg by mouth 2 (two) times a day 1 12/13/19 22 Xarelto 20 mg tabletIndications: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) TAKE 1 TABLET(20 MG) BY MOUTH DAILY 30 tablet 1 01/05/20 22 documented as of this encounter Discharge Disposition Disposition Code Departure Means Destination Discharge to home or self care documented in this encounter Plan of Treatment Not on file documented as of this encounter Procedures Procedure Name Priority Date/Time Associated Diagnosis Comments ERCP IP Routine 11/14/2021 8:24 AM DISPOSAL PLANT OPERATOR documented in this encounter Results * FL ERCP Biliary and Pancreatic (11/14/2021 8:24 AM DISPOSAL PLANT OPERATOR) Narrative [facility] - 11/14/2021 8:24 AM DISPOSAL PLANT OPERATOR The images from this study are not interpreted by Radiology. ??Please refer to the physician's procedure / OR operative note. us Tay Charlton MD IMG FLUOROSCOPY PROCEDURES Final Result [facility] documented in this encounter Visit Diagnoses Not on filedocumented in this encounter Care Teams Tobacco Wrapping Machine Tender Relationship Specialty Start Date End Date Kirt Lindsay DO PCP - General Internal Medicine 02/02/21 Josué Del Valle MD PhD Medical Oncologist/Sales Representative Electric Service Medical Oncology 08/26/19 documented as of this encounter
--- OUTSIDE RECORDS SUMMARY | 2024-11-22 10:57 | XMS_ITS | Encounter Summary ---
Author Organization [facility] Address [address] [place] [address] Phone Care Team Providers Care Correspondence Section Supervisor Name Role Phone Josué Del Valle MD PhD Unavailable [phone] Kirt Lindsay DO Primary Care Provider [phone] Encounter Details Date Type Department Care Team (Late st Contact Info) Description 11/22/[address] 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 Gender Identity Not on file Sexual Orientation Not on file documented as of this encounter Plan of Treatment Not on file documented as of this encounter Visit Diagnoses Diagnosis Type 2 diabetes mellitus with hyperosmolarity 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, with long-term current use of insulin (HCC)- Primary Vitamin D deficiency Osteoporosis without current pathological fracture, unspecified osteoporosis type documented in this encounter Care Teams Correspondence Section Supervisor Relationship Specialty Start Date End Date Kirt Lindsay DO PCP - General Internal Medicine 02/02/21 Josué Del Valle MD PhD Medical Oncologist/Cable Armorer Medical Oncology 08/26/19 documented as of this encounter
--- OUTSIDE RECORDS SUMMARY | 2024-11-22 10:57 | XMS_ITS | Encounter Summary ---
Author Organization [facility] Address [address] [place] [address] Phone Care Team Providers Care Plasma Cutting Machine Operator Name Role Phone Josué Del Valle MD PhD Unavailable [phone] Kirt Lindsay DO Primary Care Provider [phone] Tay Charlton MD Unavailable [phone] Halie Khan MD Unavailable [phone] Encounter Details Date Type Department Care Team (Late st Contact Info) Description 01/11/2022 Documentation [facility] [address] [facility] Floor 1 [place] [id number] Delmy Medeiros, RN Social History Tobacco Use Types Packs/Day [...] on file Legal Sex Male 10:48 AM ASSISTANT DEAN Gender Identity Not on file Sexual Orientation Not on file documented as of this encounter Progress Notes * Delmy Medeiros RN - 01/11/2022 12:14 PM CST Received negative COVID test, will proceed with surgery. STANT DEAN documented in this encounter Plan of Treatment Not on file documented as of this encounter Procedures Procedure Name Priority Date/Time Associated Diagnosis Comments COVID-19 ORONAVIRUS RNA (OUTSIDE LABS) Routine 01/10/2022 documented in this encounter Results * COVID-19 CORONAVIRUS RNA (OUTSIDE LABS) (01/10/2022) SCRIBED COVID-19 Coronavirus RNA Not Detected Not Detected, Negative, Undetected 01/10/2022 Ant Starks MD LAB MICROBIOLOGY - G ENERAL ORDERABLES Final Result documented in this encounter Visit Diagnoses Not on filedocumented in this encounter Care Teams Plasma Cutting Machine Operator Relationship Specialty Start Date End Date Kirt Lindsay DO PCP - General Internal Medicine 02/02/21 Josué Del Valle MD PhD Medical Oncologist/Lime Sludge Mixer Medical Oncology 08/26/19 Tay Charlton MD Consulting Physician Gastroenterology 12/03/21 06/11/23 Halie Khan MD [address] [facility] [address] [place] [address] Consulting Physician Pulmonary Disease 12/12/21 3 documented as of this encounter
--- OUTSIDE RECORDS SUMMARY | 2024-11-22 10:57 | XMS_ITS | Encounter Summary ---
Author Organization [facility] Address [address] [place] [address] Care Team Providers Care Airplane Cabin Attendant Name Role Phone Josué Del Valle MD PhD Unavailable [phone] Kirt Lindsay DO Primary Care Provider [phone] Tay Charlton MD Unavailable [phone] Halie Khan MD Unavailable [phone] Reason for Referral * Diagnostic Imaging (Routine) - Closed Specialty Diagnoses / Procedures Referred By Ana M anderson Referred To Contact Radiology Diagnoses Pancreatic lesion Procedures CT abdomen pelvis with and without contrast Ant Starks MD Phone: tel: fax: [facility] [address] [place] [address] Referral ID Status Reason Start Date Expiration Date Visits Re quested Visits Authorized [id number] Closed 12/04/2021 01/03/2023 1 1 ON TACKER Reason for Visit * Diagnostic Imaging (Routine) - Closed Specialty Diagnoses / Procedures Referred By Ana M anderson Referred To Contact Radiology Diagnoses Pancreatic lesion Procedures CT abdomen pelvis with and without contrast Ant Starks MD Phone: tel: fax: [facility] [place]SIE [place] [address] Referral ID Status Reason Start Date Expiration Date Visits Re quested Visits Authorized [id number] Closed 12/04/2021 01/03/2023 1 1 Encounter Details Date Type Department Care Team (Latest Contact Info) Description 12/12/2021 11:49 AM BUTTON TACKER - 12/12/2021 11:59 PM BUTTON TACKER Hospital Encounter [facility] [id number] [id number] Ant Starks MD [address] [facility] [address] [place] [address] Pancreatic lesion Discharge Disposition: Discharge to home or self [...] on file Legal Sex Male 10:48 AM BUTTON TACKER Gender Identity Not on file Sexual [...] mcg/actuation inhalerIndications:AML (acute myeloid leukemia) in remission ([facility]) Inhale 2 puffs every 4 (four) hours as needed for wheezing 8.5 g 3 1 01/19/20 22 Alcohol Prep Pads pads, medicated 1 01/08/20 22 atorvastatin (LIPITOR) 40 mg tabletIndications:AML (acute myeloid leukemia) in remission ([facility]),Type 2 diabetes mellitus with hyperglycemia, with long-term current use of insulin ([facility]),Kzudg-wmtwbe-okdr disease ([facility]),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[facility]),Pure hypercholesterolemia Take 1 tablet (40 mg total) by mouth daily 30 tablet 6 0 07/30/20 24 blood glucose diagnostic stripIndications:Type 2 diabetes mellitus with hyperosmolarity 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, with long-term current use of insulin ([facility]) Check blood sugar tid 100 each 4 0 01/08/20 22 blood-glucose meter miscIndications:Type 2 diabetes mellitus with hyperosmolarity 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, with long-term current use of insulin ([facility]) 1 Device 3 (three) times a day 1 each 9 02/20/20 24 ergocalciferol (VITAMIN D) 50,000 unit capsuleIndications:AML (acute myeloid leukemia) in remission ([facility]),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[facility]),Vitamin D deficiency TAKE 1 CAPSULE BY MOUTH ONCE A WEEK DIRECTED 12 capsule 3 1 02/20/20 24 furosemide (LASIX) 20 mg tabletIndications:Type 2 diabetes mellitus with hyperosmolarity 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, with long-term current use of insulin ([facility]) Take 1 tablet (20 mg total) by mouth daily As needed. 30 tablet 0 02/20/20 24 gabapentin (NEURONTIN) 300 mg capsuleIndications:Type 2 diabetes mellitus with hyperosmolarity 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, with long-term current use of insulin ([facility]) Take 1 capsule (300 mg total) by mouth 4 (four) times a day 120 capsule 3 2 02/15/20 22 insulin glargine (LANTUS, BASAGLAR) 100 unit/mL (3 mL) pen for injectionIndications:Typ e 2 diabetes mellitus with hyperosmolarity 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, with long-term current use of insulin ([facility]) INJECT 15 UNITS NIGHTLY SUB-Q. 1 pen 5 1 02/20/20 24 insulin lispro (HumaLOG, ADMELOG) 100 unit/mL pen for injectionIndications:Typ e 2 diabetes mellitus with hyperosmolarity 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, with long-term current use of insulin ([facility]) INJECT 5-10 UNITS TID WITH MEALS PLUS SLIDING SCALE. TDD OF 35 UNITS. 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),Jkebf-ipahqm-kdft disease (HCC) TAKE 1 TABLET BY MOUTH EVERY DAY 90 tablet 1 12/26/19 22 mycophenolate mofetil (CELLCEPT) 500 mg tabletIndications: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),Gpory-krulcx-tvzh disease (HCC) TAKE 2 TABLETS(1000 MG) BY MOUTH TWICE DAILY 180 tablet 3 1 04/11/20 22 ofloxacin (OCUFLOX) 0.3 % ophthalmic solution Administer 1 drop into the left eye 4 (four) times a day 5 mL 1 02/15/[address] (PROTONIX) 40 mg EC tablet Take 1 tablet (40 mg total) by mouth daily 30 tablet 1 02/29/20 22 prednisoLONE acetate (PRED FORTE) 1 % ophthalmic suspension Administer 1 drop into the left eye 4 (four) times a day 5 mL 1 01/08/20 22 sucralfate (CARAFATE) 1 gram tablet Take 1 tablet (1 g total) by mouth 2 (two) times a day for 10 days 20 tablet 1 02/15/20 22 tacrolimus (PROGRAF) 0.5 mg immediate-release capsuleIndications: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) Take 1 every other day 15 capsule 3 2 06/06/20 Terrie Ellipta 100-62.5-25 mcg inhalerIndications: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),Jcofc-mwohji-zwml disease (HCC),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HCC) [...] Name Priority Date/Time Associated Diagnosis Comments CT ABDOMEN PELVIS W WO CONTRAST Schedule Routine, Read Routine (OP Routine) 12/12/2021 12:06 PM BUTTON TACKER Pancreatic lesion POC ISTAT Routine 12/12/2021 12:01 PM BUTTON TACKER documented in this encounter Results * CT abdomen pelvis with and without contrast (12/12/2021 12:06 PM BUTTON TACKER) Anatomical Region Laterality Modality Body N/A Computed Tomogra phy 12/12/2021 12:4 3 PM BUTTON TACKER Impressions 12/12/2021 12:43 PM BUTTON TACKER 1. Unchanged lobulated hypoattenuating lesion along the pancreatic tail dating back multiple examinations. 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 No acute inflammation. 2. Cholelithiasis. 3. Increased conspicuity of the mesenteric fat with multiple subcentimeter lymph nodes that may represent mesenteric panniculitis. Electronically signed by: Paulo Canada M.D. Narrative 12/12/2021 12:43 PM BUTTON TACKER EXAMINATION: ??Computed tomography of the abdomen and pelvis with and without intravenous contrast HISTORY: Pancreatitis suspected TECHNIQUE: ??Transaxial computed tomographic images of the abdomen and pelvis were obtained with and without intravenous contrast according to the pancreas protocol after the uneventful administration of 125 mL Opti-Ray 350 intravenous contrast. COMPARISON: Multiple prior studies, the most recent of which was 09/07/2021. FINDINGS: ?? Images are mildly degraded by patient motion. Within the lung bases, there is emphysema, central scarring within both lungs, and right lower lobe atelectasis versus scarring. Normal heart size without pericardial effusion. Unchanged 4.1 cm lobulated hypoattenuation along the ventral aspect of the pancreatic tail. There is little to no enhancement within this lesion. The pancreas is overall atrophic in appearance without duct dilatation or definite focal intrapancreatic lesion. There is no peripancreatic inflammation or new peripancreatic fluid collection. Gastric distention has improved in the interval. No focal liver lesion or biliary duct dilatation. There is at least one stone within a nondistended gallbladder. The spleen is small in size. No focal renal lesion or hydronephrosis. The abdominal aorta is atherosclerotic but nonaneurysmal. Multiple subcentimeter retroperitoneal and mesenteric lymph nodes are present with increased stranding within the mesenteric fat in the interval. The prostate gland bladder appear normal. No free intraperitoneal fluid or free gas. Colonic diverticulosis is present without diverticulitis. Fat-containing umbilical hernia noted. Normal appendix. Bone windows show no suspicious osseous lesions or fracture. Procedure Note Paulo Canada MD - 12/12/2021 EXAMINATION: Computed tomography of the abdomen and pelvis with and without intravenous contrast HISTORY: Pancreatitis suspected TECHNIQUE: Transaxial computed tomographic images of the abdomen and pelvis were obtained with and without intravenous contrast according to the pancreas protocol after the uneventful administration of 125 mL Opti-Ray 350 intravenous contrast. COMPARISON: Multiple prior studies, the most recent of which was 09/07/2021. FINDINGS: Images are mildly degraded by patient motion. Within the lung bases, there is emphysema, central scarring within both lungs, and right lower lobe atelectasis versus scarring. Normal heart size without pericardial effusion. Unchanged 4.1 cm lobulated hypoattenuation along the ventral aspect of the pancreatic tail. There is little to no enhancement within this lesion. The pancreas is overall atrophic in appearance without duct dilatation or definite focal intrapancreatic lesion. There is no peripancreatic inflammation or new peripancreatic fluid collection. Gastric distention has improved in the interval. No focal liver lesion or biliary duct dilatation. There is at least one stone within a nondistended gallbladder. The spleen is small in size. No focal renal lesion or hydronephrosis. The abdominal aorta is atherosclerotic but nonaneurysmal. Multiple subcentimeter retroperitoneal and mesenteric lymph nodes are present with increased stranding within the mesenteric fat in the interval. The prostate gland bladder appear normal. No free intraperitoneal fluid or free gas. Colonic diverticulosis is present without diverticulitis. Fat-containing umbilical hernia noted. Normal appendix. Bone windows show no suspicious osseous lesions or fracture. IMPRESSION: 1. Unchanged lobulated hypoattenuating lesion along the pancreatic tail dating back multiple examinations. 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 No acute inflammation. 2. Cholelithiasis. 3. Increased conspicuity of the mesenteric fat with multiple subcentimeter lymph nodes that may represent mesenteric panniculitis. Electronically signed by: Paulo Canada M.D. Ant Starks MD IMG CT PROCEDURES Fi nal Result * POC ISTAT (12/12/2021 12:01 PM BUTTON TACKER) Creatinine, POC, bld 0.9 0.6 - 1.3 mg/dL ZULEMA GLEASON Comment: Interpretive data Creatinine <1.5 mg/dL and stable receive IV contrast. Creatinine 1.5-1.9 mg/dL and stable use Visipaque IV contrast. Current interpretive data last reviewed 2015. POC Device Number [id number] ZULEMA DUFF POC Performer [id number] ZULEMA GLEASON Blood 12/12/2021 12:0 1 PM BUTTON TACKER 12/12/2021 12:01 PM BUTTON TACKER Ant Starks MD LAB BLOOD ORDERABLES Final Result [facility] [address] [facility]. [place] [address] documented in this encounter Visit Diagnoses Diagnosis Pancreatic lesion documented in this encounter Administered Medications Inactive Administered Medications - up to 3 most recent administrations Medication Order MAR Action Action Date Dose Rate Site ioversoL (OPTIRAY 350) syringe syringe 125 mL 125 mL, intravenous, Once in imaging, contrast, Starting on 12/12/21 at 1201, For 1 dose Contrast Given 12/12/2021 12:01 PM BUTTON TACKER 121 mL documented in this encounter Orders Medications Ordered That Girma ht Not Have Been Administered Count Last Ordered Date First Ordered Date ioversoL (OPTIRAY 350) syrin ge syringe 125 mL 1 12/12/2021 documented in this encounter Care Teams Airplane Cabin Attendant Relationship Specialty Start Date End Date Kirt Lindsay DO PCP - General Internal Medicine 02/02/21 Josué Del Valle MD PhD Medical Oncologist/Explosion Welder Medical Oncology 08/26/19 Tay Charlton MD Consulting Physician Gastroenterology 12/03/21 06/11/23 Halie Khan MD [address] [facility] [address] [place] [address] Consulting Physician Pulmonary Disease 12/12/21 3 documented as of this encounter
--- OUTSIDE RECORDS SUMMARY | 2024-11-22 10:57 | XMS_ITS | Encounter Summary ---
Author Organization [facility] Address [address] [place] [address] Phone Care Team Providers Care Inspector And Sorter Name Role Phone Josué Del Valle MD PhD Unavailable [phone] Kirt Lindsay DO Primary Care Provider [phone] Encounter Details Date Type Department Care Team (Late st Contact Info) Description 11/22/[address] [facility] Bone Marrow Transplant [address] [facility] Advanced Medicine 7th Floor, [place] [address] Narcisa Kilgore NP [address] DIV IM BONE MARROW TRANSPLANT[address] [place], [place] [id number] Social History Tobacco Use Types Packs/Day Years Used Date Smoking Tobacco: Every Day Cigarettes 1 40 Started: 1984 Smokeless Tobacco: Never Comments:pt states tried to quit AUDIT-C Answer Date Recorded Q1: How often do you have a drink containing alc ohol? Never 09/07/2021 Average Number of Drinks Not on file Q3: How often do you have si x or more drinks on one occasion? Never 09/07/2021 Sex and Gender Information Value Date Recorded Sex Assigned at Not on file Legal Sex Male 10:48 AM TIRE BLADDER MAKER Gender Identity Not on file Sexual Orientation Not on file documented as of this encounter Miscellaneous Notes * Telephone Encounter - Narcisa Kilgore NP - 11/23/2021 11:26 AM TIRE BLADDER MAKER No he has 2 appts that day BLADDER MAKER documented in this encounter Plan of Treatment Not on file documented as of this encounter Visit Diagnoses Not on filedocumented in this encounter Care Teams Inspector And Sorter Relationship Specialty Start Date End Date Kirt Lindsay DO PCP - General Internal Medicine 02/02/21 Josué Del Valle MD PhD Medical Oncologist/Reel Man Medical Oncology 08/26/19 documented as of this encounter
--- OUTSIDE RECORDS SUMMARY | 2024-11-22 10:57 | XMS_ITS | Encounter Summary ---
Author Organization [facility] Address [address] [place] [address] Phone Care Team Providers Care Ad Operations Associate Name Role Phone Josué Del Valle MD PhD Unavailable [phone] Kirt Lindsay DO Primary Care Provider [phone] Tay Charlton MD Unavailable [phone] Halie Khan MD Unavailable [phone] Encounter Details Date Type Department Care Team (Late st Contact Info) Description 12/18/2021 Telephone [facility] Bone Marrow Transplant [address] [facility] Advanced Medicine 7th Floor, [place] [address] Josué Del Valle MD PhD [address] DIV IM BONE MARROW TRANSPLANT[address] [place] [address] Social History Tobacco Use [...] file Legal Sex Male 10:48 AM SIGN ERECTOR Gender Identity Not on file Sexual Orientation Not on file documented as of this encounter Miscellaneous Notes * Telephone Encounter - Grecia Tran - 12/18/2021 9:37 AM CST Delmy @ Dr. Starks's office states she faxed over anticoagulation clearance on Brady and she wanted to be sure we received it. Delmy [phone] ERECTOR documented in this encounter Plan of Treatment Not on file documented as of this encounter Visit Diagnoses Not on filedocumented in this encounter Care Teams Ad Operations Associate Relationship Specialty Start Date End Date Kirt Lindsay DO PCP - General Internal Medicine 02/02/21 Josué Del Valle MD PhD Medical Oncologist/Deicer Element Winder Machine Medical Oncology 08/26/19 Tay Charlton MD Consulting Physician Gastroenterology 12/03/21 06/11/23 Halie Khan MD [address] [facility] [address] [place] [address] Consulting Physician Pulmonary Disease 12/12/21 3 documented as of this encounter
--- OUTSIDE RECORDS SUMMARY | 2024-11-22 10:57 | XMS_ITS | Encounter Summary ---
Author Organization [facility] Address [address] [place] [address] Phone Care Team Providers Care Pocket Setter Lockstitch Name Role Phone Josué Del Valle MD PhD Unavailable [phone] Kirt Lindsay DO Primary Care Provider [phone] Tay Charlton MD Unavailable [phone] Encounter Details Date Type Department Care Team (Late st Contact Info) Description 12/07/2021 Telephone [facility] Bone Marrow Transplant [address] [facility] Advanced Medicine 7th Floor, [place] [address] Josué Del Valle MD PhD [address] DIV IM BONE MARROW TRANSPLANT[address] [place], [place] [id number] Social History Tobacco Use Types Packs/Day Years [...] on file Legal Sex Male 10:48 AM TIMBER POISONER Gender Identity Not on file Sexual Orientation Not on file documented as of this encounter Ordered Prescriptions Prescription Sig Dispense Quantity Refills Last Filled Start Date End Date tacrolimus (PROGRAF) 0.5 mg immediate-release capsuleIndications:AM L (acute myeloid leukemia) in remission (HCC) Take 1 every other day 15 capsule 3 12/07/2021 2 gabapentin (NEURONTIN) 300 mg capsuleIndications:Ty pe 2 diabetes mellitus with hyperosmolarity 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, with long-term current use of insulin (HCC) Take 1 capsule (300 mg total) by mouth 4 (four) times a day 120 capsule 3 12/07/2021 2 documented in this encounter Miscellaneous Notes * Telephone Encounter - Mellisa Rubalcava RN - 12/07/2021 4:50 PM TIMBER POISONER Refills sent ER POISONER * Telephone Encounter - Marisa Mcdermott - 12/07/2021 4:36 PM CST [facility] calling for refills for Gabapentine 300mg and Tacrolimus 0.5mg ER POISONER documented in this encounter Plan of Treatment Not on file documented as of this encounter Visit Diagnoses Diagnosis Type 2 diabetes mellitus with hyperosmolarity 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, with long-term current use of insulin (HCC) 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) documented in this encounter Discontinued Medications Medication Sig Discontinue Reason Start Date End Da te tacrolimus (PROGRAF) 0.5 mg immediate-release capsuleIndications: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) TAKE 1 CAPSULE BY MOUTH EVERY OTHER DAY Reorder 08/10/2021 12/07/2021 gabapentin (NEURONTIN) 300 mg capsuleIndications:Type 2 diabetes mellitus with hyperosmolarity 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, with long-term current use of insulin (HCC) TAKE 1 CAPSULE BY MOUTH FOUR TIMES DAILY Reorder 08/10/2021 12/07/2021 documented as of this encounter Care Teams Pocket Setter Lockstitch Relationship Specialty Start Date End Date Kirt Lindsay DO PCP - General Internal Medicine 02/02/21 Josué Del Valle MD PhD Medical Oncologist/Auditor/Quality Medical Oncology 08/26/19 Tay Charlton MD Consulting Physician Gastroenterology 12/03/21 06/11/23 documented as of this encounter
--- OUTSIDE RECORDS SUMMARY | 2024-11-22 10:57 | XMS_ITS | Encounter Summary ---
Author Organization [facility] Address [address] [place] [address] Phone Care Team Providers Care Unit Aide Tech Name Role Phone Josué Del Valle MD PhD Unavailable [phone] Kirt Lindsay DO Primary Care Provider [phone] Reason for Referral * Consultation (Routine) - Closed Specialty Diagnoses / Procedures Referred By Contac t Referred To Contact Hepatobiliary Surgery Diagnoses Biliary sludge Tay Charlton MD [address] [place] [address] Phone: tel: fax: [facility] (All Locations) Referral ID Status Reason Start Date Expiration Date V isits Requested Visits Authorized [id number] Closed Specialty Services Required 11/15/2021 12/15/2022 9 9 Question Answer Please select the performing region: [facility] (All Locations) [[id number]] # of visits: 1 Comments Refer to [facility] Surgery for consideration of cholecystectomy. CLEANER Encounter Details Date Type Department Care Team (Late st Contact Info) Description 11/15/2021 Orders Only [facility] Gastroenterology [address] [facility] [address] [place] [address] Tay Charlton MD [address] [place] [address] Biliary sludge (Primary Dx) Social History Tobacco Use Types [...] on file Legal Sex Male 10:48 AM TACK CLEANER Gender Identity Not on file Sexual Orientation Not on file documented as of this encounter Plan of Treatment Scheduled Referrals Name Type Priority Associated Diagnoses Order Schedule Ambulatory referral to Hepatobiliary Surgery Outpatient Referral Routine Biliary sludge Expected: 11/29/2021 (Approximate), Expires: 11/15/2022 documented as of this encounter Visit Diagnoses Diagnosis Biliary sludge- Primary Other specified disorders of biliary tract documented in this encounter Care Teams Unit Aide Tech Relationship Specialty Start Date End Date Kirt Lindsay DO PCP - General Internal Medicine 02/02/21 Josué Del Valle MD PhD Medical Oncologist/Auto Driver Medical Oncology 08/26/19 documented as of this encounter
--- OUTSIDE RECORDS SUMMARY | 2024-11-22 10:57 | XMS_ITS | Encounter Summary ---
Author Organization [facility] Address [address] [place] [address] Phone Care Team Providers Care Junior Network Administrator Name Role Phone Josué Del Valle MD PhD Unavailable [phone] Kirt Lindsay DO Primary Care Provider [phone] Tay Charlton MD Unavailable [phone] Reason for Referral * Diagnostic Imaging (Routine) - Closed Specialty Diagnoses / Procedures Referred By Contac t Referred To Contact Radiology Diagnoses Pancreatic lesion Procedures CT abdomen pelvis with and without contrast Ant Starks MD Phone: tel: fax: [address] [address] Referral ID Status Reason Start Date Expiration Date Visits Re quested Visits Authorized [id number] Closed 12/04/2021 01/03/2023 1 1 PROGRAMMER Encounter Details Date Type Department Care Team (Late st Contact Info) Description 12/04/2021 Orders Only [facility] Surgery [address] [facility] [address] [place] [address] Ant Starks MD [address] [place] [address] Pancreatic lesion (Primary Dx) Social History Tobacco Use Types [...] on file Legal Sex Male 10:48 AM PLC PROGRAMMER Gender Identity Not on file Sexual Orientation Not on file documented as of this encounter Plan of Treatment Not on file documented as of this encounter Results * CT abdomen pelvis with and without contrast (12/12/2021 12:06 PM PLC PROGRAMMER) Anatomical Region Laterality Modality Body N/A Computed Tomogra phy 12/12/2021 12:4 3 PM PLC PROGRAMMER Impressions 12/12/2021 12:43 PM PLC PROGRAMMER 1. Unchanged lobulated hypoattenuating lesion along the [...] Paulo Canada M.D. Narrative 12/12/2021 12:43 PM PLC PROGRAMMER EXAMINATION: ??Computed tomography of the abdomen and [...] MD IMG CT PROCEDURES Fi nal Result documented in this encounter Visit Diagnoses Diagnosis Pancreatic lesion- Primary Pancreatic lesion documented in this encounter Care Teams Junior Network Administrator Relationship Specialty Start Date End Date Kirt Lindsay DO PCP - General Internal Medicine 02/02/21 Josué Del Valle MD PhD Medical Oncologist/Press Setup Operator Medical Oncology 08/26/19 Tay Charlton MD Consulting Physician Gastroenterology 12/03/21 06/11/23 documented as of this encounter
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
--- OUTSIDE RECORDS SUMMARY | 2024-11-22 10:57 | XMS_ITS | Encounter Summary ---
Author Organization [facility] Address [address] [place] [address] Phone Care Team Providers Care Hearse Driver Name Role Phone Josué Del Valle MD PhD Unavailable [phone] Kirt Lindsay DO Primary Care Provider [phone] Tay Charlton MD Unavailable [phone] Reason for Visit * Reason Onset Date Comments Scheduling Appointments 12/06/2021 Encounter Details Date Type Department Care Team (Late st Contact Info) Description 12/06/2021 Telephone [facility] Oncology [facility] Advanced [facility] 7th [place] [address] [place] [address] Bonnie Lara, RN Scheduling Appointments Social History Tobacco Use Types Packs/Day Years [...] on file Legal Sex Male 10:48 AM INSPECTOR FUEL HOSE Gender Identity Not on file Sexual Orientation Not on file documented as of this encounter Miscellaneous Notes * Addendum Note - Bonnie Lara RN - 12/07/2021 1:12 PM CSTAddended by: BONNIE LARA on: 12/07/2021 01:12 PM Modules accepted: Orders ECTOR FUEL HOSE * Telephone Encounter - Bonnie Lara RN - 12/07/2021 1:05 PM INSPECTOR FUEL HOSE Attempted to call pt again @ [phone] regarding request to be rescheduled. No answer, left message requesting return call and provided callback number. Orders placed for pt to be rescheduled for lab/ROV/Reclast ECTOR FUEL HOSE * Telephone Encounter - Bonnie Lara RN - 12/06/2021 12:13 PM INSPECTOR FUEL HOSE Received VM from pt stating that he needs Saturday appts rescheduled. Attempted to call pt back, no answer. Left message for pt requesting return call, discussed importance of getting reclast as recommended. Encouraged pt to call back with times/dates that work for pt so we do not have to continue toreschedule appts. ECTOR FUEL HOSE documented in this encounter Plan of Treatment Not on file documented as of this encounter Visit Diagnoses Diagnosis Type 2 diabetes mellitus with hyperosmolarity 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, with long-term current use of insulin (HCC)- Primary Vitamin D deficiency Osteopenia, unspecified location Other osteoporosis without current pathological fracture documented in this encounter Care Teams Hearse Driver Relationship Specialty Start Date End Date Kirt Lindsay DO PCP - General Internal Medicine 02/02/21 Josué Del Valle MD PhD Medical Oncologist/Fur Dry Cleaner Medical Oncology 08/26/19 Tay Charlton MD Consulting Physician Gastroenterology 12/03/21 06/11/23 documented as of this encounter
--- OUTSIDE RECORDS SUMMARY | 2024-11-22 10:57 | XMS_ITS | Encounter Summary ---
Author Organization [facility] Address [address] [place] [address] Phone Care Team Providers Care Emergency Medical Service Coordinator Name Role Phone Josué Del Valle MD PhD Unavailable [phone] Kirt Lindsay DO Primary Care Provider [phone] Tay Charlton MD Unavailable [phone] Halie Khan MD Unavailable [phone] Encounter Details Date Type Department Care Team (Late st Contact Info) Description 01/08/2022 Telephone [facility] Surgery [address] [place] [address] Delmy Medeiros, RN Social History Tobacco Use Types Packs/Day Years Used Date Smoking Tobacco: Every Day Cigarettes 0.5 40 Started: 1984 Smokeless Tobacco: Never Comments:pt states tried to quit AUDIT-C Answer Date Recorded Q1: How often do you have a drink containing alc ohol? Never 01/08/2022 Average Number of Drinks Not on file 022 Q3: How often do you have si x or more drinks on one occasion? Never 01/08/2022 Sex and Gender Information Value Date Recorded Sex Assigned at Not on file Legal Sex Male 10:48 AM HEAD BATCHER Gender Identity Not on file Sexual Orientation Not on file documented as of this encounter Miscellaneous Notes * Telephone Encounter - Delmy Medeiros RN - 01/08/2022 12:20 PM HEAD BATCHER Patient called our office stating that he is needing to postpone surgery due to a recent in his family. Encouraged him to call should he want to reschedule, he verbalized understanding. ----- Message from Marisol Morales RN sent at 01/08/2022 11:24 AM HEAD BATCHER ----- Regarding: CPAP MESSAGING-DR Nimisha CANDELARIO Patient states he is canceling his surgery with Dr Candelario on 01/12/22, patients instructed to notify surgeons office. >NOTE: There is no need to reply to this message but if you would like to send a non-urgent reply, please address it to the [facility] staff message POOL address [1:1:: [facility] IT DESKTOP SUPPORT SPECIALIST (number [phone]) ].Please note that messages to this address will be replied to within approximately 1 business day. If you have an urgent reply, please call the [facility] Day of Surgery RN @ [phone] and your call willbe directed to the appropriate staff member. BATCHER BATCHER documented in this encounter Plan of Treatment Not on file documented as of this encounter Visit Diagnoses Not on filedocumented in this encounter Care Teams Emergency Medical Service Coordinator Relationship Specialty Start Date End Date Kirt Lindsay DO PCP - General Internal Medicine 02/02/21 Josué Del Valle MD PhD Medical Oncologist/Purchasing Administrative Assistant Medical Oncology 08/26/19 Tay Charlton MD Consulting Physician Gastroenterology 12/03/21 06/11/23 Halie Khan MD [address] [facility] [address] [place] [address] Consulting Physician Pulmonary Disease 12/12/21 3 documented as of this encounter
--- OUTSIDE RECORDS SUMMARY | 2024-11-22 10:57 | XMS_ITS | Encounter Summary ---
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 DISCHARGE DRESSING 2 01/12/2022 FOLLOW UP WITH ESTABLISHED PROVIDER 1 01/12 documented in this encounter Care Teams Instructional Coach Relationship Specialty Start Date End Date Kirt Lindsay DO PCP - General Internal Medicine 02/02/21 Josué Del Valle MD PhD Medical Oncologist/Real Estate Rep Medical Oncology 08/26/19 Tay Charlton MD Consulting Physician Gastroenterology 12/03/21 06/11/23 Halie Khan MD [address] [place], [place] [id number] Consulting Physician Pulmonary Disease 12/12/21 3 Ant Starks MD [address] [place] [address] Consulting Physician Transplant Hepatology 01/12/22 documented as of this encounter
--- OUTSIDE RECORDS SUMMARY | 2024-11-22 10:57 | XMS_ITS | Encounter Summary ---
Author Organization [facility] Address [address] [place] [address] Phone Care Team Providers Care Bioanalyst Name Role Phone Josué Del Valle MD PhD Unavailable [phone] Kirt Lindsay DO Primary Care Provider [phone] Tay Charlton MD Unavailable [phone] Halie Khan MD Unavailable [phone] Encounter Details Date Type Department Care Team (Late st Contact Info) Description 12/14/2021 Documentation [facility] Surgery [address] [facility] Floor 1 [place] [id number] Delmy Medeiros, RN Social History Tobacco Use [...] on file 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 Josué Del Valle, Your patient, Brady Jones 67, will be scheduled for a laparoscopic cholecystectomy for possible gallstone pancreatitis with Dr. Ant Starks in the next 2-3 weeks. Please see patient within the next 1-2 weeks for cardiac evaluation and preoperative clearance. ??? Please notify us if any further evaluations (stress test, echo, etc) will be required before surgery can be performed. Patient is taking XARELTO 20mg daily ??? Please indicate if patient can stop before the procedure and how many days prior to the procedure Please indicate your recommendations, sign and return to our office. PLEASE FAX TO [phone] Patient, Brady Jones 67, can hold XARELTO 20mg daily days before the above mentioned procedure. Recommendations: Signature: Date: If there are any questions please call: INDRA Girard, RN [facility] Department of Surgery [address] [place] [address] ATTENDANT * Delmy Medeiros RN - 12/14/2021 4:12 PM CST SURGERY CLEARANCE REQUEST Date: 12/14/[address] Halie Khan, Your patient, Brady Jones [age], will be scheduled for a laparoscopic cholecystectomy for possible gallstone pancreatitis with Dr. Ant Starks in the next 2-3 weeks. Please see patient within the next 1-2 weeks for pulmonary evaluation and preoperative clearance. ??? Please notify us if any further evaluations will be required before surgery can be performed. Please indicate your recommendations, sign and return to our office. PLEASE FAX TO [phone] Recommendations: Signature: Date: If there are any questions please call: INDRA Girard, RN [facility] Department of Surgery [address] [place] [address] ATTENDANT documented in this encounter Plan of Treatment Not on file documented as of this encounter Visit Diagnoses Not on filedocumented in this encounter Care Teams Bioanalyst Relationship Specialty Start Date End Date Kirt Lindsay DO PCP - General Internal Medicine 02/02/21 Josué Del Valle MD PhD Medical Oncologist/Commissions Coordinator Medical Oncology 08/26/19 Tay Charlton MD Consulting Physician Gastroenterology 12/03/21 06/11/23 Halie Khan MD [address] [place] [address] Consulting Physician Pulmonary Disease 12/12/21 3 documented as of this encounter
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
--- OUTSIDE RECORDS SUMMARY | 2024-11-22 10:57 | XMS_ITS | Encounter Summary ---
Author Organization [facility] Address [address] [place] [address] Phone Care Team Providers Care Communication Consultant Name Role Phone Josué Del Valle MD PhD Unavailable [phone] Kirt Lindsay DO Primary Care Provider [phone] Tay Charlton MD Unavailable [phone] Halie Khan MD Unavailable [phone] Encounter Details Date Type Department Care Team (Late st Contact Info) Description 01/08/2022 Telephone [facility] Surgery [address] [facility] Floor 1 [place] [address] Delmy Medeiros, RN Social History [...] on file 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 He will arrange a COVID test RENÉE. He will bring a copy of the negative results to the OR on 01/12. Will notify CPAP. T AID TEACHER documented in this encounter Plan of Treatment Not on file documented as of this encounter Visit Diagnoses Not on filedocumented in this encounter Care Teams Communication Consultant Relationship Specialty Start Date End Date Kirt Lindsay DO PCP - General Internal Medicine 02/02/21 Josué Del Valle MD PhD Medical Oncologist/Automobile Upholsterer Apprentice Medical Oncology 08/26/19 Tay Charlton MD Consulting Physician Gastroenterology 12/03/21 06/11/23 Halie Khan MD [address] [place] [address] Consulting Physician Pulmonary Disease 12/12/21 3 documented as of this encounter
--- OUTSIDE RECORDS SUMMARY | 2024-11-22 10:57 | XMS_ITS | Encounter Summary ---
Author Organization [facility] Address [address] [place] [address] Phone Care Team Providers Care Supervisor Coremaker Name Role Phone Josué Del Valle MD PhD Unavailable [phone] Kirt Lindsay DO Primary Care Provider [phone] Tay Charlton MD Unavailable [phone] Halie Khan MD Unavailable [phone] Encounter Details Date Type Department Care Team (Late st Contact Info) Description 01/04/2022 Telephone [facility] Surgery [address] [facility] Floor 1 [place] [address] Delmy Medeiros, RN Social History [...] on file Legal Sex Male 10:48 AM SUGARCANE PLANTER Gender Identity Not on file Sexual Orientation Not on file documented as of this encounter Miscellaneous Notes * Telephone Encounter - Delmy Medeiros RN - 01/04/2022 12:41 PM SUGARCANE PLANTER Please see Cardiac and Pulmonary clearnace in media tab. Pt to hold Xarerlto 48 hours preoperatively. He is to resume 72 hours postoperatively. Pt verbalized understanding. RCANE PLANTER RCANE PLANTER documented in this encounter Plan of Treatment Not on file documented as of this encounter Visit Diagnoses Not on filedocumented in this encounter Care Teams Supervisor Coremaker Relationship Specialty Start Date End Date Kirt Lindsay DO PCP - General Internal Medicine 02/02/21 Josué Del Valle MD PhD Medical Oncologist/Leak Detection Engineer Medical Oncology 08/26/19 Tay Charlton MD Consulting Physician Gastroenterology 12/03/21 06/11/23 Halie Khan MD [address] [address] Consulting Physician Pulmonary Disease 12/12/21 3 documented as of this encounter
--- OUTSIDE RECORDS SUMMARY | 2024-11-22 10:58 | XMS_ITS | Encounter Summary ---
Author Organization [facility] Address [address] [place] [address] Phone Care Team Providers Care Director Of Nursing Name Role Phone Josué Del Valle MD PhD Unavailable [phone] Kirt Lindsay DO Primary Care Provider [phone] Encounter Details Date Type Department Care Team (Late st Contact Info) Description 09/28/2021 Orders Only [facility] Bone Marrow Transplant [address] [facility] 7th Floor, [place] [address] Josué Del Valle MD PhD [address] DIV IM BONE MARROW TRANSPLANT[address] [place], [place] [id number] Social History Tobacco Use Types Packs/Day Years Used Date Smoking Tobacco: Every Day Cigarettes 0.3 39 Started: 1984 Smokeless Tobacco: Never Comments:pt states [...] on file 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 Gender Identity Not on file Sexual Orientation Not on file documented as of this encounter Progress Notes * Mellisa Rubalcava RN - 09/28/2021 1:24 PM CST Ok to hold Xarelto for prodecure UROY CUTTER OPERATOR documented in this encounter Plan of Treatment Not on file documented as of this encounter Visit Diagnoses Not on filedocumented in this encounter Care Teams Director Of Nursing Relationship Specialty Start Date End Date Kirt Lindsay DO PCP - General Internal Medicine 02/02/21 Josué Del Valle MD PhD Medical Oncologist/Senior Office Assistant Medical Oncology 08/26/19 documented as of this encounter
--- OUTSIDE RECORDS SUMMARY | 2024-11-22 10:58 | XMS_ITS | Encounter Summary ---
Author Organization [facility] Address [address] [place] [address] Phone Care Team Providers Care Filter Cleaner Name Role Phone Josué Del Valle MD PhD Unavailable [phone] Kirt Lindsay DO Primary Care Provider [phone] Encounter Details Date Type Department Care Team (Late st Contact Info) Description 09/12/2021 Telephone [facility] Bone Marrow Transplant [address] [facility] Advanced Medicine 7th Floor, [place] [address] Mellisa Rubalcava RN Social History Tobacco Use Types Packs/Day [...] on file 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 Contact (call, mychart message, [email or web address]) achieved or 2 contacts attempted: Yes Discharge Planning Review ??? Care Coordination Note Reviewed: Yes ??? New equipment: none ??? New Treatment: for GI bleed ??? Patient received growth factor? not applicable ??? Issues since Discharge: other none ??? Appointments reviewed with patient. Next return office visit eligible for TCV: No, Describe outof window ??? Issues with discharge planning: No ??? Is patient experiencing financial toxicity? Denies o If yes, obtain household size and income information Medication Review: Medication reconcilitation reviewed with patient. ??? Received all discharge medications: yes ??? Patient has antiemetics available? yes ??? Is the patient on a research study with a research oral medication? no - documented in this encounter Plan of Treatment Not on file documented as of this encounter Visit Diagnoses Not on filedocumented in this encounter Care Teams Filter Cleaner Relationship Specialty Start Date End Date Kirt Lindsay DO PCP - General Internal Medicine 02/02/21 Josué Del Valle MD PhD Medical Oncologist/Harbor Boat Pilot Medical Oncology 08/26/19 documented as of this encounter
--- OUTSIDE RECORDS SUMMARY | 2024-11-22 10:58 | XMS_ITS | Encounter Summary ---
Author Organization [facility] Address [address] [place] [address] Phone Care Team Providers Care Clothing Examiner Name Role Phone Josué Del Valle MD PhD Unavailable [phone] Kirt Lindsay DO Primary Care Provider [phone] Reason for Visit * Reason Onset Date Comments results/recommendations 09/21/2021 Encounter Details Date Type Department Care Team (Late st Contact Info) Description 09/21/2021 Telephone [facility] Gastroenterology [address] [facility] 8th [place] [address] [place] [address] Vee Drake LPN results/recommendations Social History Tobacco Use Types Packs/Day Years [...] on file 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 * Telephone Encounter - Vee Drake LPN - 09/21/2021 3:05 PM CDT Images from the original note were not included. CBD stent is in, PD stent out. Needs ercp in October Tay Charlton MD Ink Grindermanager internet retails sales Division of Gastroenterology [facility] in [address] Email: [email or web address] Office: [phone] Pager: [phone] From: Indy Baez <[email or web address]> Sent: Monday, September 20, 2021 9:38 AM To: Tay Charlton <[email or web address]>; Vee Drake <[email or web address]> Subject: FW: (secure) Suresh Jones [email or web address] -----Original Message----- From: Rafat Hernandez <[email or web address]> Sent: Sunday, September 19, 2021 4:44 PM To: Indy Baez <[email or web address]> Subject: FW: documented in this encounter Plan of Treatment Not on file documented as of this encounter Visit Diagnoses Not on filedocumented in this encounter Care Teams Clothing Examiner Relationship Specialty Start Date End Date Kirt Lindsay DO PCP - General Internal Medicine 02/02/21 Josué Del Valle MD PhD Medical Oncologist/Drier Tender Medical Oncology 08/26/19 documented as of this encounter
--- OUTSIDE RECORDS SUMMARY | 2024-11-22 10:58 | XMS_ITS | Encounter Summary ---
Author Organization [facility] Address [address] [place] [address] Phone Care Team Providers Care Rag Cutting Machine Operator Name Role Phone Josué Del Valle MD PhD Unavailable [phone] Kirt Lindsay DO Primary Care Provider [phone] Encounter Details Date Type Department Care Team (Late st Contact Info) Description 10/03/2021 Orders Only [facility] Gastroenterology [address] [facility] Medical Office [address] [place] [address] Meg Orellana RN Pre-procedure lab exam (Primary Dx) Social History Tobacco Use Types [...] on file 

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
--- OUTSIDE RECORDS SUMMARY | 2024-11-22 10:58 | XMS_ITS | Encounter Summary ---
Author Organization 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 Gender Identity Not on file Sexual Orientation Not on file documented as of this encounter Plan of Treatment Not on file documented as of this encounter Procedures Procedure Name Priority Date/Time Associated Diagnosis Comments SCAN - RADIOLOGY/IMAGING 09/19/2021 documented in this encounter Results * SCAN - RADIOLOGY/IMAGING (09/19/2021) Anatomical Region Laterality Modality Other us Provider Scanning Final Result documented in this encounter Visit Diagnoses Not on filedocumented in this encounter Care Teams Wired Music Operator Relationship Specialty Start Date End Date Kirt Lindsay DO PCP - General Internal Medicine 02/02/21 Josué Del Valle MD PhD Medical Oncologist/Preschool Disability Teacher Medical Oncology 08/26/19 documented as of this encounter
--- OUTSIDE RECORDS SUMMARY | 2024-11-22 10:58 | XMS_ITS | Encounter Summary ---
Author Organization [facility] Address [address] [place] [address] Phone Care Team Providers Care Business Education Teacher Name Role Phone Josué Del Valle MD PhD Unavailable [phone] Kirt Lindsay DO Primary Care Provider [phone] Reason for Visit * Reason Onset Date Comments pre-procedure covid testing 10/04/2021 Encounter Details Date Type Department Care Team (Late st Contact Info) Description 10/04/2021 Telephone [facility] Gastroenterology [address] [facility] Medical Office Building [address] [place] [address] Meg Orellana RN pre-procedure covid testing Social History Tobacco Use Types Packs/Day Years [...] on file Legal 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 Stated I will send instructions through Narrable. /b with questions ING WHEEL PRESSER documented in this encounter Plan of Treatment Not on file documented as of this encounter Visit Diagnoses Not on filedocumented in this encounter Care Teams Business Education Teacher Relationship Specialty Start Date End Date Kirt Lindsay DO PCP - General Internal Medicine 02/02/21 Josué Del Valle MD PhD Medical Oncologist/Sand Control Worker Medical Oncology 08/26/19 documented as of this encounter
--- OUTSIDE RECORDS SUMMARY | 2024-11-22 10:58 | XMS_ITS | Encounter Summary ---
Author Organization [facility] Healthcare Address [address] [place] [address] Care Team Providers Care Teletype Or Varitype Keyboard Operator Name Role Phone Josué Del Valle MD PhD Unavailable [phone] Kirt Lindsay DO Primary Care Provider [phone] Reason for Visit * Reason Comments Abdominal Pain Shortness of Breath Encounter Details Date Type Department Care Team (Late st Contact Info) Description 09/07/2021 3:27 AM CDT - 09/10/2021 5:00 PM CDT Hospital Encounter [facility] [address] [place] [address] Anaid Kruse MD [address] [place] [address] Alessio Bravo MD [address] [place] [address] Tay Charlton MD [address] [place] [address] Acute hepatitis (Primary Dx); Jaundice; Abdominal pain; Hematemesis, presence of nausea not specified Discharge Disposition: Discharge to home or self [...] on file Legal Sex Male 10:48 AM EMERGENCY [employer] Gender Identity Not on file Sexual Orientation Not on file documented as of this encounter Last Filed Vital Signs Vital Sign Reading Time Taken Comments Blood Pressure 145/82 09/10/2021 3:20 PM CDT Pulse 81 09/10/2021 3:20 PM CDT Temperature 36.7 ??C (98.1 ??F) 09/10/2021 3:20 PM CD T Respiratory Rate 16 09/10/2021 3:20 PM CDT Oxygen Saturation 98% 09/10/2021 3:20 PM CDT Inhaled Oxygen Concentration - - Weight 65.3 kg (144 lb) 09/09/2021 8:45 PM CDT Height 177.8 cm (5' 10 ) 09/07/2021 1:18 PM CDT Body Mass Index 20.66 09/07/2021 1:18 PM CDT documented in this encounter Discharge Diagnoses Diagnosis Chronic or unspecified duodenal ulcer with hemorrhage - CHRONIC OR UNSPECIFIED DUODENAL ULCER WITH HEMORRHAGE Acute myeloblastic leukemia, in remission (HCC) - ACUTE MYELOBLASTIC LEUKEMIA, IN REMISSION Chronic ncaot-bodomb-mzlp disease (HCC) - CHRONIC XYHUD-RDUHHN-YCJU DISEASE Chronic fibju-gkltah-onij disease Chronic respiratory failure with hypoxia (CMS/HCC) (HCC) - CHRONIC RESPIRATORY FAILURE WITH HYPOXIA Complications of stem cell transplant (HCC) - COMPLICATIONS OF STEM CELL TRANSPLANT Calculus of gallbladder and bile duct without cholecystitis with obstruction - CALCULUS OF GALLBLADDER AND BILE DUCT WITHOUT CHOLECYSTITIS WITH OBSTRUCTION Other disorders of phosphorus metabolism - OTHER DISORDERS OF PHOSPHORUS METABOLISM Heart failure, unspecified (CMS/HCC) (HCC) - HEART FAILURE, UNSPECIFIED Heart failure, unspecified Emphysema, unspecified (HCC) - EMPHYSEMA, UNSPECIFIED Type 2 diabetes mellitus without complications (CMS/HCC) (HCC) - TYPE 2 DIABETES MELLITUS WITHOUT COMPLICATIONS Surgical operation with transplant of whole organ as the cause of abnormal reaction of the patient, or of later complication, without mention of misadventure at the time of the procedure - SURGICAL OPERATION WITH TRANSPLANT OF WHOLE ORGAN THE CAUSE OF ABNORMAL REACTION OF THE PATIENT, half-way (current) use of 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 - 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) USE OF ANTICOAGULANTS Long-term (current) use of 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 Other manager 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) drug therapy - OTHER ASSISTED (CURRENT) DRUG THERAPY manager 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) use of insulin (HCC) - ASSISTED (CURRENT) USE OF INSULIN Personal history of pulmonary embolism - PERSONAL HISTORY OF PULMONARY EMBOLISM Personal history of other venous thrombosis and embolism - PERSONAL HISTORY OF OTHER VENOUS THROMBOSIS AND EMBOLISM Dependence on supplemental oxygen - DEPENDENCE ON SUPPLEMENTAL OXYGEN Nicotine dependence, cigarettes, uncomplicated - NICOTINE DEPENDENCE, CIGARETTES, UNCOMPLICATED Polyneuropathy, unspecified - POLYNEUROPATHY, UNSPECIFIED Esophagitis, unspecified without bleeding - ESOPHAGITIS, UNSPECIFIED WITHOUT BLEEDING Unspecified place or not applicable - UNSPECIFIED PLACE OR NOT APPLICABLE documented in this encounter Discharge Summaries * Aidan Carl MD - 09/10/2021 4:20 PM CDT Inpatient Discharge Summary BRIEF OVERVIEW Admitting Provider: Anaid Kruse MD Discharge Provider: Anaid Kruse MD Primary Care Physician at Discharge: Kirt Lindsay DO [phone] Admission Date: 09/07/2021 Discharge Date: 09/10/2021 Admission Location: [facility] Problems/Diagnoses: Principal Problem: Upper GI bleed Active Problems: Elevated LFTs Djeig-hhojvf-lctq disease (HCC) 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) COPD with exacerbation (CMS/HCC) (HCC) Abdominal pain History of DVT (deep vein thrombosis) History of pulmonary embolism Resolved Problems: No resolved hospital problems. 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 He was recently admitted to the hospital from 08/17/2021 to08/19/2021 for COPD exacerbation. Patient presented to the hospital with episode of hematemesis, patient states that he had some neckpain and was given a muscle relaxant by an outside hospital emergency department, after taking the Mucinex and patient felt nauseated and had an episode of hematemesis, he states that the vomitus wasbright red in color, denies any clots or coffee-ground nature. Denies any dizziness, lightheadedness, syncope or fall. Patient also complaint of 8 on 10 epigastric abdominal pain radiating to his back sharp in nature. In the emergency department patient's labs were significant for elevated LFTs, patient underwent anERCP before admission which showed, grade D esophagitis with no active bleeding, coffee-ground likematerial in the entire stomach, nonbleeding duodenal ulcer and No signs of biliary obstruction or stone noted. A plastic biliary stent was placed. Blood cultures were drawn in the emergency department and the patient was started on IV meropenem. Patient also received 80 mg of IV pantoprazole in theemergency department. Elevated LFTs ERCP was done and a stent placed. GI recommended follow up for repeat ERCP and possible sphincterotomy. Acute hepatitis panel were sent that came back negative. Further, LFT, except for ALKP, startedImproving after ERCP. GGT was to investigate contributory etiology which came back elevated. Further empirical Abx and fluid resuscitation started in ED and later D/C. Upper GI bleed ERCP showed nonbleeding duodenal ulcer, esophagitis, coffee-ground like material in the entire stomach. IV PPI b.i.d. initiated and we hold Xarelto. We monitored his blood counts. H.pylori was not sent, ordered another one as positive results confirm the diagnosis regardless of PPI. We gradually advanced his diet. Xarelto started later and patient tolerated it with no signs of bleeding. Gave him C arafate for 10 days and PPI and TUMS upon discharge. Further, advised patient about upcoming followup with GI service and possible ERCP. History of pulmonary embolism and DVT Patient has history of PE/DVT: DVT 2012, 2017, PE in 2012. Hold Xarelto due to GI bleed and later started and continued upon discharge. COPD with exacerbation Patient has history of chronic hypoxic respiratory failure. He is on 3-5 L of oxygen at home at baseline. Continued home oxygen and home dose of bronchodilator therapy: Albuterol p.r.n., Trelegy Ellipta. We continued home dose of montelukast. Type 2 diabetes mellitus Insulin-dependent diabetes mellitus; patient's home doses 15 units of Lantus nightly, 10 units of lispro pre meal and sliding scale insulin.We gradually advanced his diet, monitored his blood glucoseand adjusted insulin accordingly. AML (acute myeloid leukemia) in remission He is S/p Busulfan and Cytoxan on the AMD allogeneic study with his sister, 08/27 match; with day 0on 11/09/2009 after induction with 7+3 and HiDAC consolidation x3. Followed by Decitabine maintenance on the CALGB 92978 protocol and relapsed disease, status post AMD/MEC. 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 He was OI prophylaxis, acyclovir. We continued upon discharge. Wumzz-rliznh-nzly disease Of the eyes and lung. We resumed Cellcept 1 g b.i.d. and tacro 2.5 mg every other day,Tacrolimus level in a.m. normal range. Further we continued PF eye drops. Active Issues Requiring Follow-up: Follow up with GI for ERCP Test Results Pending at Discharge: Pending Labs Order Current Status H. pylori antigen, stool Stool Collected (09/10/21 7196) Type and screen In process Blood culture Blood Preliminary result Blood culture Blood Preliminary result Operative Procedures Performed: Procedure(s): ENDO ENDOSCOPIC RETROGRADE CHOLANGIOPANCREATOGRAPHY WITH STENT PLACEMENT ENDO ADD ON ENDOSCOPIC RETROGRADE CHOLANGIOPANCREATOGRAPHY WITH STENT PLACEMENT RAD S AND I BILIARY AND PANCREATIC DUCTAL SYSTEMS Discharge Details Physical Exam at Discharge: Discharge Condition: good Pulse: 81 Resp: 16 BP: 145/82 Temp: 36.7 ??C (98.1 ??F) Weight: 65.3 kg (144 lb) Pertinent Exam Findings at Discharge: General Appearance: Awake, alert, no acute distress Head: Normocephalic, atraumatic Eyes: Sclera anicteric, pupils equal Lungs: Clear to auscultation bilaterally, respirations unlabored Cardiovascular: Regular rate and rhythm, S1 and S2 normal, no murmur, rub or gallop, no peripheral edema Abdomen: Soft, non-tender to palpation Extremities: Extremities normal, atraumatic Skin: Warm and dry without rashes. Neurologic: Awake and alert, answering questions appropriately Psychosocial: Normal affect and mood ?? Discharge Disposition: Home Code Status at Discharge: Full Discharge Instructions: Follow with GI for ERCP Discharge Medications: Current Medications TAKE these medications acyclovir 400 mg tablet TAKE 1 TABLET(400 MG) BY MOUTH EVERY 8 HOURS Commonly known as: ZOVIRAX albuterol HFA 90 mcg/actuation inhaler INHALE 1 TO 2 PUFFS BY MOUTH EVERY 4 HOURS NEEDED FOR WHEEZING Commonly known as: PROVENTIL HFA,VENTOLIN HFA,PROAIR HFA Alcohol Prep Pads pads, medicated Generic drug: alcohol swabs atorvastatin 40 mg tablet Take 1 tablet (40 mg total) by mouth daily Commonly known as: LIPITOR blood glucose diagnostic strip Check blood sugar tid blood-glucose meter misc 1 Device 3 (three) times a day calcium carbonate 500 mg calcium (200 mg of elemental calcium) chewable tablet Take 1 tablet/chew tab (500 mg total) by mouth 2 (two) times a day Commonly known as: TUMS dextromethorphan-guaiFENesin 2-20 mg/mL liquid Take 10 mL by mouth every 4 (four) hours as needed for cough For: cough Commonly known as: ROBITUSSIN-DM ergocalciferol 50,000 unit capsule Take one capsule (50,000 international units) twice weekly on Saturdays and Wednesdays for 8 weeks. For: low vitamin D levels Commonly known as: VITAMIN D furosemide 20 mg tablet Take 1 tablet (20 mg total) by mouth daily As needed. Commonly known as: LASIX gabapentin 300 mg capsule TAKE 1 CAPSULE BY MOUTH FOUR TIMES DAILY Commonly known as: NEURONTIN insulin glargine 100 unit/mL (3 mL) pen for injection INJECT 15 UNITS NIGHTLY SUB-Q. Commonly known as: LANTUS, BASAGLAR, SEMGLEE insulin lispro 100 unit/mL pen for injection INJECT 5-10 UNITS TID WITH MEALS PLUS SLIDING SCALE. TDD OF 35 UNITS. Commonly known as: HumaLOG, ADMELOG lancets 30 gauge misc montelukast 10 mg tablet TAKE 1 TABLET BY MOUTH EVERY DAY Commonly known as: SINGULAIR mycophenolate mofetil 500 mg tablet TAKE 2 TABLETS(1000 MG) BY MOUTH TWICE DAILY Commonly known as: CELLCEPT ofloxacin 0.3 % ophthalmic solution Administer 1 drop into the left eye 4 (four) times a day Commonly known as: OCUFLOX omega-3 fatty acids 1 gram capsule Take 1 g by mouth 2 (two) times a day For: high amount of triglyceride in the blood Commonly known as: LOVAZA oxygen Administer 1 L/min into each nostril nightly Nightly and PRN For: trouble breathing pantoprazole DR 40 mg EC tablet Take 1 tablet (40 mg total) by mouth daily Commonly known as: PROTONIX prednisoLONE acetate 1 % ophthalmic suspension Administer 1 drop into the left eye 4 (four) times a day Commonly known as: PRED FORTE sucralfate 1 gram tablet Take 1 tablet (1 g total) by mouth 2 (two) times a day for 10 days Commonly known as: CARAFATE tacrolimus 0.5 mg immediate-release capsule TAKE 1 CAPSULE BY MOUTH EVERY OTHER DAY Commonly known as: PROGRAF Trelegy Ellipta 100-62.5-25 mcg inhaler INHALE 1 PUFF BY MOUTH DAILY Generic drug: wlouudurqdn-pzhqchpdk-gcifwubx voriCONAZOLE 200 mg tablet Take 200 mg by mouth 2 (two) times a day For: stem Cell Transplant Commonly known as: VFEND Xarelto 20 mg tablet TAKE 1 TABLET(20 MG) BY MOUTH DAILY Generic drug: rivaroxaban Outpatient Follow-Up: Future Appointments Date Time Provider Department Center 09/11/2021 9:00 AM Ravi Hughes MD [facility] 6 OP 10/19/2021 11:00 AM Quiana Rodriguez RN EML CAM 13B [facility] EML 11/02/2021 1:00 PM LAB, CAM 7 ONC ONC LAB CAM7 [facility] 11/24/2021 10:30 AM [facility] 7 ONC ONC LAB CAM7 [facility] LAB 11/24/2021 11:20 AM Narcisa Kilgore NP BMT CAM 7 BMT 11/24/2021 12:[address] Montejo MD ONC CAM7 [facility] Oncology 11/24/2021 1:00 PM POD 6 CAM ONC INF CAM7 [facility] INF documented in this encounter Discharge Instructions * Discharge Instructions* Amoozgar, Aidan, MD - 09/10/2021 3:46 PM CDT Please follow up with gastroenterology within 2 weeks: they set up an appointment for you for further evaluation and possible ERCP procedure. They will contact you. documented in this encounter Medications at Time of Discharge omega-3 fatty acids (LOVAZA) 1 gram capsule Take 1 capsule (1 g total) by mouth daily 02/10/20 oxygen Administer 2 L/min into each nostril nightly Nightly and PRN calcium carbonate (TUMS) 500 mg calcium (200 mg of elemental calcium) chewable tablet Take 1 tablet/chew tab (500 mg total) by mouth 2 (two) times a day 60 tablet/chew tab 09/10/20 21 021 dextromethorphan-guaiFEN esin (ROBITUSSIN-DM) 2-20 mg/mL liquidIndications:Cough Take 10 mL by mouth every 4 (four) hours as needed for cough 120 mL 08/19/20 21 021 acyclovir (ZOVIRAX) 400 mg tabletIndications: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) TAKE 1 TABLET(400 MG) BY MOUTH EVERY 8 HOURS 270 tablet 1 06/05/20 21 022 albuterol HFA (PROVENTIL HFA,VENTOLIN HFA,PROAIR HFA) 90 mcg/actuation inhalerIndications: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) INHALE 1 TO 2 PUFFS BY MOUTH EVERY 4 HOURS NEEDED FOR WHEEZING 8.5 g 3 09/05/20 21 021 Alcohol Prep Pads pads, medicated 05/27/20 21 022 atorvastatin (LIPITOR) 40 mg tabletIndications: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),Type 2 diabetes mellitus with hyperglycemia, with long-term current use of insulin (HCC),Qhnsd-yrkfrv-rfjl disease (HCC),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HCC),Pure hypercholesterolemia Take 1 tablet (40 mg total) by mouth daily 30 tablet 6 01/15/20 20 024 blood glucose diagnostic stripIndications:Type 2 diabetes mellitus with hyperosmolarity 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, with long-term current use of insulin ([facility]) Check blood sugar tid 100 each 4 01/15/20 20 022 blood-glucose meter miscIndications:Type 2 diabetes mellitus with hyperosmolarity 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, with long-term current use of insulin ([facility]) 1 Device 3 (three) times a day 1 each 05/29/20 19 024 ergocalciferol (VITAMIN D) 50,000 unit capsuleIndications:Vitam in D Deficiency Take one capsule (50,000 international units) twice weekly on Saturdays and Wednesdays for 8 weeks. 16 capsule 08/21/20 21 021 furosemide (LASIX) 20 mg tabletIndications:Type 2 diabetes mellitus with hyperosmolarity 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, with long-term current use of insulin ([facility]) Take 1 tablet (20 mg total) by mouth daily As needed. 30 tablet 01/15/20 20 024 gabapentin (NEURONTIN) 300 mg capsuleIndications:Type 2 diabetes mellitus with hyperosmolarity 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, with long-term current use of insulin ([facility]) TAKE 1 CAPSULE BY MOUTH FOUR TIMES DAILY 120 capsule 3 08/10/20 21 022 insulin glargine (LANTUS, BASAGLAR) 100 unit/mL (3 mL) pen for injectionIndications:Typ e 2 diabetes mellitus with hyperosmolarity 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, with long-term current use of insulin ([facility]) INJECT 15 UNITS NIGHTLY SUB-Q. 1 pen 5 02/04/20 21 024 insulin lispro (HumaLOG, ADMELOG) 100 unit/mL pen for injectionIndications:Typ e 2 diabetes mellitus with hyperosmolarity 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, with long-term current use of insulin ([facility]) INJECT 5-10 UNITS TID WITH MEALS PLUS SLIDING SCALE. TDD OF 35 UNITS. 10 pen 6 02/04/20 21 024 lancets 30 gauge misc 21 022 montelukast (SINGULAIR) 10 mg tabletIndications: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),Duhhj-kbzbdh-xdma disease (HCC) TAKE 1 TABLET BY MOUTH EVERY DAY 90 tablet 06/29/20 21 021 mycophenolate mofetil (CELLCEPT) 500 mg tabletIndications: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),Ryhsr-fpishu-zjtj disease (HCC) TAKE 2 TABLETS(1000 MG) BY MOUTH TWICE DAILY 180 tablet 3 02/22/20 21 022 ofloxacin (OCUFLOX) 0.3 % ophthalmic solution Administer 1 drop into the left eye 4 (four) times a day 5 mL 11 08/01/[address] (PROTONIX) 40 mg EC tablet Take 1 tablet (40 mg total) by mouth daily 30 tablet 09/10/20 21 022 prednisoLONE acetate (PRED FORTE) 1 % ophthalmic suspension Administer 1 drop into the left eye 4 (four) times a day 5 mL 08/09/20 21 022 sucralfate (CARAFATE) 1 gram tablet Take 1 tablet (1 g total) by mouth 2 (two) times a day for 10 days 20 tablet 09/10/20 21 022 tacrolimus (PROGRAF) 0.5 mg immediate-release capsuleIndications: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) TAKE 1 CAPSULE BY MOUTH EVERY OTHER DAY 15 capsule 3 08/10/20 21 022 Trelegy Ellipta 100-62.5-25 mcg inhalerIndications: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),Kpvfk-jganlt-zzuj disease (HCC),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HCC) INHALE 1 PUFF BY MOUTH DAILY 60 each 3 05/23/20 21 022 voriCONAZOLE (VFEND) 200 mg tabletIndications:stem Cell Transplant Take 200 mg by mouth 2 (two) times a day 06/18/20 21 022 Xarelto 20 mg tabletIndications: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) TAKE 1 TABLET(20 MG) BY MOUTH DAILY 30 tablet 1 07/11/20 21 021 Xarelto 20 mg tabletIndications: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) TAKE 1 TABLET(20 MG) BY MOUTH DAILY 30 tablet 1 09/11/20 21 021 documented as of this encounter Ordered Prescriptions Prescription Sig Dispense Quantity Refills Last Filled Start Date End Date pantoprazole DR (PROTONIX) 40 mg EC tablet Take 1 tablet (40 mg total) by mouth daily 30 tablet 09/10/2021 02/28/2022 sucralfate (CARAFATE) 1 gram tablet Take 1 tablet (1 g total) by mouth 2 (two) times a day for 10 days 20 tablet 09/10/2021 02/14/2022 calcium carbonate (TUMS) 500 mg calcium (200 mg of elemental calcium) chewable tablet Take 1 tablet/chew tab (500 mg total) by mouth 2 (two) times a day 60 tablet/chew tab 09/10/2021 10/10/2021 documented in this encounter Discharge Disposition Disposition Code Departure Means Destination Discharge to home or self care documented in this encounter Progress Notes * Noemí Moulton MD - 09/10/2021 2:35 PM CDT BMT Progress Note Chief Complaint: Patient is a 55 y.o. male with chief complaint of hematemesis. Subjective Still having abd pain after eating. No bleeding noted. Active Treatment & Therapy Plans for [facility] Chemotherapy Treatment: [id number] - [facility] - Heme/BMT - INCB [id number] - EAP Ruxolitinib for GVHD (On Hold) Current day: Day 1, Cycle 3 and 4 (Planned for 01/25/2020) Following planned day: Day 1, Cycle 5-6 (Planned for 03/21/2020) Specialty Infusion Treatment: ZOLEDRONIC ACID (RECLAST) INFUSION Current treatment: Treatment 1 (Planned for 11/24/2021) Current Facility-Administered Medications: ??? acetaminophen (TYLENOL) tablet 650 mg, 650 mg, oral, Q4H PRN, Jerry Carpenter MD ??? acetaminophen (TYLENOL) tablet 650 mg, 650 mg, oral, Q6H PRN, Jerry Carpenter MD ??? acyclovir (ZOVIRAX) tablet 400 mg, 400 mg, oral, TID, Jerry Carpenter MD, 400 mg at 09/10/21 0909 ??? albuterol HFA (PROVENTIL HFA,VENTOLIN HFA,PROAIR HFA) 90 mcg/actuation inhaler 1 puff, 1 puff, inhalation, Q4H PRN, Yolie Pop MD ? ? aluminum & magnesium ullphgiio-mscspaoxnfq-dyayqnuqsjfotdj-lidocaine (MAGIC MOUTHWASH) suspension 1-1-1, 15 mL, swish & swallow, QID PRN, Jerry Carpenter MD ??? bacitracin-polymyxin B (POLYSPORIN) 500-10,000 unit/gram ointment tube 1 application, 1 application, topical, Q4H PRN, Jerry Carpenter MD ??? calcium carbonate (TUMS) chewable tablet 500 mg, 200 mg of elemental calcium, oral, BID, Aidan Carl MD, 500 mg at 09/10/21 1044 ??? camphor-menthoL (SARNA) 0.5-0.5 % lotion, , topical, Q2H PRN, Jerry Carpenter MD ??? cefepime (MAXIPIME) 1,000 mg/10 mL in sterile water (premix) 1,000 mg, 1,000 mg, intravenous, Once PRN, Jerry Carpenter MD ??? dextromethorphan-guaiFENesin (ROBITUSSIN-DM) 2-20 mg/mL syrup 10 mL, 10 mL, oral, Q4H PRN, Jerry Carpenter MD, 10 mL at 09/10/21 0057 ??? dextrose (GLUTOSE) 40 % gel 15 g, 15 g, oral, Q15 Min PRN OR dextrose (D10W) 10% bolus 250 mL, 250 mL, intravenous, Q15 Min PRN, Jerry Carpenter MD ??? jdraafvjzur-vzmoqcied-xulzjesz (TRELEGY ELLIPTA) 100-62.5-25 mcg inhaler 1 puff, 1 puff, inhalation, Daily, Yolie Pop MD, 1 puff at 09/10/21 0910 ??? gabapentin (NEURONTIN) capsule 300 mg, 300 mg, oral, QID, Jerry Carpenter MD, 300 mg at 211 ??? glucagon injection 1 mg, 1 mg, intramuscular, Q30 Min PRN, Jerry Carpenter MD ??? heparin 10 unit/mL flush 20-50 Units, 2-5 mL, intra-catheter, PRN, Jerry Carpenter MD ??? heparin 10 unit/mL flush 50 Units, 5 mL, intra-catheter, Q12H ROSA MARIA, Jerry Carpenter MD, 50 Units at 09/09/212042 ??? insulin glargine (LANTUS, SEMGLEE) 100 unit/mL injection 15 Units, 15 Units, subcutaneous, Nightly, Aidan Carl MD, 15 Units at 09/09/212144 ??? insulin lispro (HumaLOG, ADMELOG) 100 unit/mL injection 0-10 Units, 0-10 Units, subcutaneous, TID with meals, Jerry Carpenter MD, 2 Units at 09/10/21 0909 ??? insulin lispro (HumaLOG, ADMELOG) 100 unit/mL injection 0-5 Units, 0-5 Units, subcutaneous, Nightly, Jerry Carpenter MD, 2 Units at 09/09/212144 ??? insulin lispro (HumaLOG, ADMELOG) 100 unit/mL injection 5 Units, 5 Units, subcutaneous, TID with meals, Jerry Carpenter MD, 5 Units at 09/10/21 0909 ??? loperamide (IMODIUM) capsule 2 mg, 2 mg, oral, Q1H PRN, Jerry Carpenter MD ??? magnesium sulfate 4 g/100 mL in water (premix) 4 g, 4 g, intravenous, Q4H PRN, Jerry Carpenter MD ??? magnesium sulfate 6 g in sodium chloride 0.9% 250 mL IVPB, 6 g, intravenous, Q4H PRN, Jerry Carpenter MD ??? montelukast (SINGULAIR) tablet 10 mg, 10 mg, oral, Before breakfast, Jerry Carpenter MD, 10 mg at 09/10/21 0639 ??? mycophenolate mofetil (CELLCEPT) tablet 1,000 mg, 1,000 mg, oral, BID, Jerry Carpenter MD, 1,000mg at 09/10/21 0909 ??? nicotine (NICODERM CQ) 21 mg patch 24 hour 1 patch, 1 patch, transdermal, Daily, Jerry Carpenter MD, Medication Removed at 09/10/21 0045 ??? ofloxacin (OCUFLOX) 0.3 % ophthalmic solution 1 drop, 1 drop, left eye, QID, Jerry Carpenter MD,1 drop at 09/10/21 1211 ??? oxyCODONE-acetaminophen (PERCOCET) 5-325 mg per tablet 1 tablet, 1 tablet, oral, Q4H PRN, Jerry Carpenter MD, 1 tablet at 09/09/21 0134 ??? pantoprazole (PROTONIX) 4 mg/mL injection 40 mg, 40 mg, intravenous, BID, Jerry Carpenter MD, 40mg at 09/10/21 0909 ??? polyvinyl alcohol-povidone (REFRESH CLASSIC) 1.4-0.6 % ophthalmic solution 2 drop, 2 drop, eacheye, Q4H PRN, Jerry Carpenter MD ??? potassium chloride 40 mEq/520 mL in sodium chloride 0.9% (premix) 40 mEq, 40 mEq, intravenous, Q4H PRN, Jerry Carpenter MD ??? potassium chloride ER (KLOR-CON) extended release tablet 40 mEq, 40 mEq, oral, Q4H PRN, Jerry Carpenter MD ??? potassium, sodium phosphates (PHOS-NAK) 280-160-250 mg packet 2 packet, 2 packet, oral, TID AC,Aidan Carl MD, 2 packet at 09/10/21 1211 ??? prednisoLONE acetate (PRED FORTE) 1 % ophthalmic suspension 1 drop, 1 drop, left eye, QID, Jerry Carpenter MD, 1 drop at 09/10/21 1213 ??? rivaroxaban (XARELTO) tablet 20 mg, 20 mg, oral, Daily - 0600, Aidan Carl MD, 20 mg at 09/10/21 0639 ??? sodium chloride (OCEAN) 0.65 % nasal spray 2 spray, 2 spray, each nostril, Q1H PRN, Jerry Carpenter MD ??? sodium chloride 0.9% infusion, 30 mL/hr, intravenous, Continuous PRN, Jerry Carpenter MD, Last Rate: 30 mL/hr at 09/09/21 0541, 30 mL/hr at 09/09/21 0541 ? ? sodium chloride 0.9% irrigation 30 mL, 30 mL, swish & spit, QID, Jerry Carpenter MD ??? sodium chloride 0.9% IVPB 0-250 mL, 0-250 mL, intravenous, PRN, Jerry Carpenter MD ??? sodium phosphate - potassium phosphate (K-PHOS NEUTRAL) tablet 500 mg, 500 mg, oral, Daily PRN,Jerry Carpenter MD ??? sucralfate (CARAFATE) tablet 1 g, 1 g, oral, BID, Aidan Carl MD, 1 g at 09/10/21 09 ??? tacrolimus (PROGRAF) immediate-release capsule 0.5 mg, 0.5 mg, oral, Q48H, Jerry Carpenter MD, 0.5 mg at 09/10/21907 ??? voriCONAZOLE (VFEND) tablet 200 mg, 200 mg, oral, BID, Jerry Carpenter MD, 200 mg at 09/10/21907 ??? white petrolatum-mineral oiL (EUCERIN) cream, , topical, Q2H PRN, Jerry Carpenter MD Review of Systems All other systems negative. Objective Vitals: 24hr Min/Max: Temp Min: 36.4 ??C (97.6 ??F) Max: 37.4 ??C (99.3 ??F) Pulse Min: 82 Max: 94 BP Min: 109/70 Max: 156/87 Resp Min: 16 Max: 18 SpO2 Min: 94 % Max: 100 % Physical exam: GEN: no acute distress HEENT: no mucositis, anicteric sclera Pulm: clear to ausculation bilaterally CV: rate and rhythm regular GI: soft, nondistended, nontender, bowel sounds active Skin: no rashes, lesions Ext: no edema LN: no palpable lymphadenopathy Neuro: no focal deficits Lab/Radiology/Diagnostic Review: CBC: Recent Labs Lab Units 09/10/21 0054 WBC K/cumm 18.9* HEMOGLOBIN g/dL 12.7* HEMATOCRIT % 37.8* MCV fL 99.2* MCH pg 33.3 MCHC g/dL 33.6 RDW CV % 15.9* RDWSD fL 55.5* MPV fL 11.1 NEUTROS ABS K/cumm 15.9* CMP: Recent Labs Lab Units 09/10/21 1202 09/10/21 0717 09/10/21 0054 SODIUM mmol/L -- -- 139 POTASSIUM PLASMA mmol/L -- -- 3.6 CO2 mmol/L -- -- 29 BUN SERUM mg/dL -- -- 12 GLUCOSE mg/dL -- -- 145 POC GLUCOSE MONITOR mg/dL 80 < > -- CREATININE mg/dL -- -- 0.84 CALCIUM mg/dL -- -- 9.0 CHLORIDE mmol/L -- -- 98 ALBUMIN g/dL -- -- 3.4* AST Units/L -- -- 86* ALT Units/L -- -- 823* ALK PHOS Units/L -- -- 511* BILIRUBIN TOTAL mg/dL -- -- 2.0* TOTAL PROTEIN g/dL -- -- 7.0 ANIONGAP mmol/L -- -- 12 < > = values in this interval not displayed. LDH: Recent Labs Lab Units 09/07/212205 LACTATE DEHYDROGENASE (LDH) Units/L 294* Uric Acid: Recent Labs Lab Units 09/07/212205 URIC ACID mg/dL 5.3 Tacrolimus level: Recent Labs Lab Units 09/10/21 0905 09/10/21 0054 09/07/21 0428 TACROLIMUS RANDOM ng/mL -- -- <1.0 TACROLIMUS TROUGH ng/mL 2.5 < > -- < > = values in this interval not displayed. Sirolimus level: Cyclosporine level: PT: Recent Labs Lab Units 09/07/212205 PROTIME (PT) sec 13.1 PTT: Recent Labs Lab Units 09/07/212205 APTT sec 29 Radiology: I have reviewed all recent imaging. Assessment/Plan # Upper GI bleed: Endoscopy showed nonbleeding duodenal ulcer, esophagitis, coffee-ground like material in the entirestomach. - Hb stable, has not required any blood transfusions during admimssion - continue PPI bid; carafate - tolerating regular diet ?? # Transaminitis -acute hepatitis panel negative -s/p ERCP on 09/07: no signs of biliary obstruction or stone noted; plastic biliary stent was placed -monitor LFTs; improving -initially on meropenem, now DC'd as no evidence of infection ?? 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 #??History of PE/DVT?? -history of DVT 2012, 2018, PE??in 2012 -restarted on xarelto ?? # Insulin-dependent diabetes mellitus -insulin, monitor glucose ?? # COPD -history of chronic hypoxic respiratory failure -on 3-5 L of oxygen at home at baseline -continue home dose of bronchodilator therapy. ??Albuterol p.r.n., Trelegy Ellipta -continue home dose of montelukast ?? #??Neuropathy Continue home dose of gabapentin 300 mg 4 times a day * Aidan Carl MD - 09/10/2021 9:10 AM CDT BMT Hospitalist Progress Note BMT Day: Chief Complaint: Patient is a 55 y.o. male with chief complaint of GI bleed which improved. Interval History: No new complains and no blood in stool S/p ERCP Patient hemodynamically stable with no bleeding LFT improved Advance diet: soft diet at noon. 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 Adhesive Redness burn Medications: acyclovir, 400 mg, oral, TID calcium carbonate, 200 mg of elemental calcium, oral, BID qvitoqoqhcq-xgnltefyk-oahqrrsl, 1 puff, inhalation, Daily gabapentin, 300 mg, oral, QID heparin flush (porcine), 5 mL, intra-catheter, Q12H ROSA MARIA insulin glargine, 15 Units, subcutaneous, Nightly insulin lispro, 0-10 Units, subcutaneous, TID with meals insulin lispro, 0-5 Units, subcutaneous, Nightly insulin lispro, 5 Units, subcutaneous, TID with meals montelukast, 10 mg, oral, Before breakfast mycophenolate mofetil, 1,000 mg, oral, BID nicotine, 1 patch, transdermal, Daily ofloxacin, 1 drop, left eye, QID pantoprazole, 40 mg, intravenous, BID potassium, sodium phosphates, 2 packet, oral, TID AC prednisoLONE acetate, 1 drop, left eye, QID rivaroxaban, 20 mg, oral, Daily - 0600 sodium chloride 0.9%, 30 mL, swish & spit, QID sucralfate, 1 g, oral, BID tacrolimus, 0.5 mg, oral, Q48H voriCONAZOLE, 200 mg, oral, BID Objective Vitals: 24hr Min/Max: Temp Min: 36.4 ??C (97.6 ??F) Max: 37.4 ??C (99.3 ??F) Pulse Min: 82 Max: 94 BP Min: 113/72 Max: 156/87 Resp Min: 18 Max: 18 SpO2 Min: 94 % Max: 100 % Most Recent : Vitals: 09/09/21 2045 09/10/21 0045 09/10/21 0345 09/10/21 0719 BP: 134/76 156/87 153/86 BP Location: Right arm Right arm Right arm Patient Position: Sitting Lying Lying Pulse: 94 82 87 Resp: 18 18 18 Temp: 37.4 ??C (99.3 ??F) 37.4 ??C (99.3 ??F) 36.9 ??C (98.4 ??F) TempSrc: Oral Oral Oral SpO2: 94% 99% 100% Weight: 65.3 kg (144 lb) Height: Intake/Output Summary (Last 24 hours) at 09/10/2021 0920 Last data filed at 09/10/2021 0640 Gross per 24 hour Intake 1726 ml Output 3100 ml Net -1374 ml Physical Exam: General Appearance: Awake, alert, no acute distress Head: Normocephalic, atraumatic Eyes: Sclera anicteric, pupils equal Lungs: Clear to auscultation bilaterally, respirations unlabored Cardiovascular: Regular rate and rhythm, S1 and S2 normal, no murmur, rub or gallop, no peripheral edema Abdomen: Soft, non-tender to palpation Extremities: Extremities normal, atraumatic Skin: Warm and dry without rashes. Neurologic: Awake and alert, answering questions appropriately Psychosocial: Normal affect and mood Lab/Radiology/Diagnostic Review: Laboratory review: I have personally reviewed the labs. CBC: Recent Labs Lab Units 09/10/21 0054 WBC K/cumm 18.9* HEMOGLOBIN g/dL 12.7* HEMATOCRIT % 37.8* MCV fL 99.2* MCH pg 33.3 MCHC g/dL 33.6 RDW CV % 15.9* RDWSD fL 55.5* MPV fL 11.1 NEUTROS ABS K/cumm 15.9* CMP: Recent Labs Lab Units 09/10/21 0717 09/10/21 0054 09/09/21 2137 SODIUM mmol/L -- 139 -- POTASSIUM PLASMA mmol/L -- 3.6 -- CO2 mmol/L -- 29 -- BUN SERUM mg/dL -- 12 -- GLUCOSE mg/dL -- 145 -- POC GLUCOSE MONITOR mg/dL 163 -- < > CREATININE mg/dL -- 0.84 -- CALCIUM mg/dL -- 9.0 -- CHLORIDE mmol/L -- 98 -- ALBUMIN g/dL -- 3.4* -- AST Units/L -- 86* -- ALT Units/L -- 823* -- ALK PHOS Units/L -- 511* -- BILIRUBIN TOTAL mg/dL -- 2.0* -- TOTAL PROTEIN g/dL -- 7.0 -- ANIONGAP mmol/L -- 12 -- < > = values in this interval not displayed. LDH: Recent Labs Lab Units 09/07/21 2206 LACTATE DEHYDROGENASE (LDH) Units/L 294* Uric Acid: Recent Labs Lab Units 09/07/212205 URIC ACID mg/dL 5.3 Tacrolimus level: Recent Labs Lab Units 09/10/21 0054 09/07/21 0428 TACROLIMUS RANDOM ng/mL -- <1.0 TACROLIMUS TROUGH ng/mL 2.9 -- Sirolimus level: Cyclosporine level: PT: Recent Labs Lab Units 09/07/212205 PROTIME (PT) sec 13.1 PTT: Recent Labs Lab Units 09/07/212205 APTT sec 29 Radiology: Imaging review: I have reviewed the result(s) . Assessment/Plan Elevated LFTs Assessment & Plan -acute hepatitis panel negative/Improving after ERCP -ERCP findings as above -status post biliary stent placement. -ALk getting worse sent GGT to investigate contributory etiology -monitor LFTs: AST and ALT improving -trend lipase: normalized -IV fluids * Upper GI bleed Assessment & Plan Endoscopy showed nonbleeding duodenal ulcer, esophagitis, coffee-ground like material in the entirestomach. -IV PPI b.i.d. -hold Xarelto -monitor blood counts -H.pylori was not send, ordered another one as positive results confirm the diagnosis regardless ofPPI -Will advance diet accordingly: soft mechanical advanced to full for this noon History of pulmonary embolism Assessment & Plan History of PE/DVT -history of DVT 2012, 2017, PE in 2012 -hold Xarelto due to GI bleed History of DVT (deep vein thrombosis) Assessment & Plan History of PE/DVT -history of DVT 2012, 2017, PE in 2012 -hold Xarelto due to GI bleed COPD with exacerbation (CMS/HCC) (HCC) Assessment & Plan -history of chronic hypoxic respiratory failure -on 3-5 L of oxygen at home at baseline -O2 requirements at baseline -continue home dose of bronchodilator therapy. Albuterol p.r.n., Trelegy Ellipta -continue home dose of montelukast ?? Type 2 diabetes mellitus (HCC) Assessment & Plan Insulin-dependent diabetes mellitus -patient's home doses 15 units of Lantus nightly, 10 units of lispro pre meal and sliding scale insulin. -patient is on mechanical soft diet, dose reduced Lantus to 10 units due to pervious diet; Will increase accordingly -lispro 5 units t.i.d. pre meal -sliding scale insulin. -frequent point of care glucose checks. 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) Assessment & Plan -S/p Busulfan and Cytoxan on the AMD allogeneic study with his sister, 08/27 match; with day 0 on 11/09/2009??after induction with 7+3 and HiDAC consolidation x3.??Followed by??Decitabine maintenanceon the CALGB 76892 protocol??and relapsed disease, status post AMD/MEC. 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 and tacro 2.5 mg every other day, Tacrolimus level in a.m. normal range Continue PF eye drops ?? Aidan Carl MD * Noemí Moulton MD - 09/09/2021 2:51 PM CDT BMT Progress Note Chief Complaint: Patient is a 55 y.o. male with chief complaint of hematemesis. Subjective Feels well, tolerating PO, no further episodes of bleeding noted. 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 acetaminophen (TYLENOL) tablet 650 mg, 650 mg, oral, Q4H PRN, Jerry Carpenter MD ??? acetaminophen (TYLENOL) tablet 650 mg, 650 mg, oral, Q6H PRN, Jerry Carpenter MD ??? acyclovir (ZOVIRAX) tablet 400 mg, 400 mg, oral, TID, Jerry Carpenter MD, 400 mg at 09/09/21 0822 ??? albuterol HFA (PROVENTIL HFA,VENTOLIN HFA,PROAIR HFA) 90 mcg/actuation inhaler 1 puff, 1 puff, inhalation, Q4H PRN, Yolie Pop MD ? ? aluminum & magnesium uvyaxzqtn-ajpjmbijiwy-xonbphkwdwznfip-lidocaine (MAGIC MOUTHWASH) suspension 1-1-1, 15 mL, swish & swallow, QID PRN, Jerry Carpenter MD ??? bacitracin-polymyxin B (POLYSPORIN) 500-10,000 unit/gram ointment tube 1 application, 1 application, topical, Q4H PRN, Jerry Carpenter MD ??? camphor-menthoL (SARNA) 0.5-0.5 % lotion, , topical, Q2H PRN, Jerry Carpenter MD ??? cefepime (MAXIPIME) 1,000 mg/10 mL in sterile water (premix) 1,000 mg, 1,000 mg, intravenous, Once PRN, Jerry Carpenter MD ??? dextromethorphan-guaiFENesin (ROBITUSSIN-DM) 2-20 mg/mL syrup 10 mL, 10 mL, oral, Q4H PRN, Jerry Carpenter MD, 10 mL at 09/09/21 0834 ??? dextrose (GLUTOSE) 40 % gel 15 g, 15 g, oral, Q15 Min PRN OR dextrose (D10W) 10% bolus 250 mL, 250 mL, intravenous, Q15 Min PRN, Jerry Carpenter MD ??? cwpcwjsqiur-zxibrqmja-vuponhyo (TRELEGY ELLIPTA) 100-62.5-25 mcg inhaler 1 puff, 1 puff, inhalation, Daily, Yolie Pop MD, 1 puff at 09/09/21 0824 ??? gabapentin (NEURONTIN) capsule 300 mg, 300 mg, oral, QID, Jerry Carpenter MD, 300 mg at 229 ??? glucagon injection 1 mg, 1 mg, intramuscular, Q30 Min PRN, Jerry Carpenter MD ??? heparin 10 unit/mL flush 20-50 Units, 2-5 mL, intra-catheter, PRN, Jerry Carpenter MD ??? heparin 10 unit/mL flush 50 Units, 5 mL, intra-catheter, Q12H ROSA MARIA, Jerry Carpenter MD, 50 Units at 09/08/212024 ??? insulin glargine (LANTUS, SEMGLEE) 100 unit/mL injection 15 Units, 15 Units, subcutaneous, Nightly, Aidan Carl MD ??? insulin lispro (HumaLOG, ADMELOG) 100 unit/mL injection 0-10 Units, 0-10 Units, subcutaneous, TID with meals, Jerry Carpenter MD ??? insulin lispro (HumaLOG, ADMELOG) 100 unit/mL injection 0-5 Units, 0-5 Units, subcutaneous, Nightly, Jerry Carpenter MD, 2 Units at 09/07/212130 ??? insulin lispro (HumaLOG, ADMELOG) 100 unit/mL injection 5 Units, 5 Units, subcutaneous, TID with meals, Jerry Carpenter MD, 5 Units at 09/09/21 1229 ??? loperamide (IMODIUM) capsule 2 mg, 2 mg, oral, Q1H PRN, Jerry Carpenter MD ??? magnesium sulfate 4 g/100 mL in water (premix) 4 g, 4 g, intravenous, Q4H PRN, Jerry Carpenter MD ??? magnesium sulfate 6 g in sodium chloride 0.9% 250 mL IVPB, 6 g, intravenous, Q4H PRN, Jerry Carpenter MD ??? montelukast (SINGULAIR) tablet 10 mg, 10 mg, oral, Before breakfast, Jerry Carpenter MD, 10 mg at 09/09/21 0822 ??? mycophenolate mofetil (CELLCEPT) tablet 1,000 mg, 1,000 mg, oral, BID, Jerry Carpenter MD, 1,000mg at 09/09/21 0822 ??? nicotine (NICODERM CQ) 21 mg patch 24 hour 1 patch, 1 patch, transdermal, Daily, Jerry Carpenter MD, 1 patch at 09/09/21 0005 ??? ofloxacin (OCUFLOX) 0.3 % ophthalmic solution 1 drop, 1 drop, left eye, QID, Jerry Carpenter MD,1 drop at 09/09/21 1200 ??? oxyCODONE-acetaminophen (PERCOCET) 5-325 mg per tablet 1 tablet, 1 tablet, oral, Q4H PRN, Jerry Carpenter MD, 1 tablet at 09/09/21 0134 ??? pantoprazole (PROTONIX) 4 mg/mL injection 40 mg, 40 mg, intravenous, BID, Jerry Carpenter MD, 40mg at 09/09/21 0821 ??? polyvinyl alcohol-povidone (REFRESH CLASSIC) 1.4-0.6 % ophthalmic solution 2 drop, 2 drop, eacheye, Q4H PRN, Jerry Carpenter MD ??? potassium chloride 40 mEq/520 mL in sodium chloride 0.9% (premix) 40 mEq, 40 mEq, intravenous, Q4H PRN, Jerry Carpenter MD ??? potassium chloride ER (KLOR-CON) extended release tablet 40 mEq, 40 mEq, oral, Q4H PRN, Jerry Carpenter MD ??? potassium, sodium phosphates (PHOS-NAK) 280-160-250 mg packet 2 packet, 2 packet, oral, TID AC,Aidan Carl MD, 2 packet at 09/09/21 1415 ??? prednisoLONE acetate (PRED FORTE) 1 % ophthalmic suspension 1 drop, 1 drop, left eye, QINimisha, Jerry Carpenter MD, 1 drop at 09/09/21 1200 ??? rivaroxaban (XARELTO) tablet 20 mg, 20 mg, oral, Daily - 0600, Aidan Carl MD, 20 mg at 09/09/21 1415 ??? sodium chloride (OCEAN) 0.65 % nasal spray 2 spray, 2 spray, each nostril, Q1H PRN, Jerry Carpenter MD ??? sodium chloride 0.9% infusion, 30 mL/hr, intravenous, Continuous PRN, Jerry Carpenter MD, Last Rate: 30 mL/hr at 09/09/21 0541, 30 mL/hr at 09/09/21 0541 ??? sodium chloride 0.9% infusion, 75 mL/hr, intravenous, Continuous, Aidan Carl MD, Last Rate: 75 mL/hr at 09/09/21 0825, 75 mL/hr at 09/09/21 0825 ? ? sodium chloride 0.9% irrigation 30 mL, 30 mL, swish & spit, QID, Jerry Carpenter MD ??? sodium chloride 0.9% IVPB 0-250 mL, 0-250 mL, intravenous, PRN, Jerry Carpenter MD ??? sodium phosphate - potassium phosphate (K-PHOS NEUTRAL) tablet 500 mg, 500 mg, oral, Daily PRN,Jerry Carpenter MD ??? tacrolimus (PROGRAF) immediate-release capsule 0.5 mg, 0.5 mg, oral, Q48H, Jerry Carpenter MD, 0.5 mg at 09/08/21 0859 ??? voriCONAZOLE (VFEND) tablet 200 mg, 200 mg, oral, BID, Jerry Carpenter MD, 200 mg at 09/09/21 0822 ??? white petrolatum-mineral oiL (EUCERIN) cream, , topical, Q2H PRN, Jerry Carpenter MD Review of Systems All other systems negative. Objective Vitals: 24hr Min/Max: Temp Min: 36.2 ??C (97.2 ??F) Max: 37.3 ??C (99.1 ??F) Pulse Min: 83 Max: 92 BP Min: 103/64 Max: 128/65 Resp Min: 16 Max: 18 SpO2 Min: 86 % Max: 95 % Physical exam: GEN: no acute distress HEENT: no mucositis, anicteric sclera Pulm: clear to ausculation bilaterally CV: rate and rhythm regular GI: soft, nondistended, nontender, bowel sounds active Skin: no rashes, lesions Ext: no edema LN: no palpable lymphadenopathy Neuro: no focal deficits Lab/Radiology/Diagnostic Review: CBC: Recent Labs Lab Units 09/09/21 0035 WBC K/cumm 16.2* HEMOGLOBIN g/dL 12.2* HEMATOCRIT % 33.7* MCV fL 99.1* MCH pg 35.9* MCHC g/dL 36.2* RDW CV % 16.7* RDWSD fL 57.6* MPV fL 14.0* NEUTROS ABS K/cumm 14.8* CMP: Recent Labs Lab Units 09/09/21 1210 09/09/21 0810 09/09/21 0310 SODIUM mmol/L -- -- 137 POTASSIUM PLASMA mmol/L -- -- 3.7 CO2 mmol/L -- -- 30 BUN SERUM mg/dL -- -- 23 GLUCOSE mg/dL -- -- 159 POC GLUCOSE MONITOR mg/dL 114 < > -- CREATININE mg/dL -- -- 1.00 CALCIUM mg/dL -- -- 8.9 CHLORIDE mmol/L -- -- 97 ALBUMIN g/dL -- -- 3.2* AST Units/L -- -- 98* ALT Units/L -- -- 1,057* ALK PHOS Units/L -- -- 303* BILIRUBIN TOTAL mg/dL -- -- 1.9* TOTAL PROTEIN g/dL -- -- 6.4* ANIONGAP mmol/L -- -- 10 < > = values in this interval not displayed. LDH: Recent Labs Lab Units 09/07/21 2206 LACTATE DEHYDROGENASE (LDH) Units/L 294* Uric Acid: Recent Labs Lab Units 09/07/21 2206 URIC ACID mg/dL 5.3 Tacrolimus level: Recent Labs Lab Units 09/07/21 0428 TACROLIMUS RANDOM ng/mL <1.0 Sirolimus level: Cyclosporine level: PT: Recent Labs Lab Units 09/07/21 2206 PROTIME (PT) sec 13.1 PTT: Recent Labs Lab Units 09/07/21 2206 APTT sec 29 Radiology: I have reviewed all recent imaging. Assessment/Plan # Upper GI bleed: Endoscopy showed nonbleeding duodenal ulcer, esophagitis, coffee-ground like material in the entirestomach. - Hb stable, has not required any blood transfusions during admimssion - continue PPI bid; advance diet - will resume xarelto today ?? # Transaminitis -acute hepatitis panel negative -s/p ERCP on 09/07: no signs of biliary obstruction or stone noted; plastic biliary stent was placed -monitor LFTs; improving -on empiric meropenem; plan to transition to PO antibiotics today ?? 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 # Kolgw-iwlojk-nvyg disease Of the eyes and lung -Continue cellcept, tacro -Continue PF eye drops ?? #??History of PE/DVT?? -history of DVT 2012, 2017, PE??in 2012 -will resume xarelto today ?? # Insulin-dependent diabetes mellitus -insulin, monitor glucose ?? # COPD -history of chronic hypoxic respiratory failure -on 3-5 L of oxygen at home at baseline -continue home dose of bronchodilator therapy. ??Albuterol p.r.n., Trelegy Ellipta -continue home dose of montelukast ?? #??Neuropathy Continue home dose of gabapentin 300 mg 4 times a day * Aidan Carl MD - 09/09/2021 8:48 AM CDT BMT Hospitalist Progress Note BMT Day: Chief Complaint: Patient is a 55 y.o. male with chief complaint of GI bleed which improved. Interval History: No new complains and no blood in stool S/p ERCP Patient hemodynamically stable with no active bleeding LFT improved Advance diet: soft diet at noon. 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 Adhesive Redness burn Medications: acyclovir, 400 mg, oral, TID raxysydksrt-vrorfrfaj-juxxppsd, 1 puff, inhalation, Daily gabapentin, 300 mg, oral, QID heparin flush (porcine), 5 mL, intra-catheter, Q12H ROSA MARIA insulin glargine, 15 Units, subcutaneous, Nightly insulin lispro, 0-10 Units, subcutaneous, TID with meals insulin lispro, 0-5 Units, subcutaneous, Nightly insulin lispro, 5 Units, subcutaneous, TID with meals meropenem, 1,000 mg, intravenous, Q8H ROSA MARIA montelukast, 10 mg, oral, Before breakfast mycophenolate mofetil, 1,000 mg, oral, BID nicotine, 1 patch, transdermal, Daily ofloxacin, 1 drop, left eye, QID pantoprazole, 40 mg, intravenous, BID prednisoLONE acetate, 1 drop, left eye, QID sodium chloride 0.9%, 30 mL, swish & spit, QID tacrolimus, 0.5 mg, oral, Q48H voriCONAZOLE, 200 mg, oral, BID Objective Vitals: 24hr Min/Max: Temp Min: 36.2 ??C (97.2 ??F) Max: 36.9 ??C (98.4 ??F) Pulse Min: 72 Max: 90 BP Min: 103/64 Max: 128/65 Resp Min: 16 Max: 18 SpO2 Min: 86 % Max: 95 % Most Recent : Vitals: 09/08/21 2330 09/08/21 2335 09/09/21 0305 09/09/21 0815 BP: 110/70 118/66 125/75 BP Location: Right arm Right arm Right arm Patient Position: Lying Lying Lying Pulse: 85 90 89 Resp: 18 18 18 Temp: 36.8 ??C (98.2 ??F) 36.9 ??C (98.4 ??F) 36.7 ??C (98.1 ??F) TempSrc: Oral Oral Oral SpO2: (!) 86% 94% 95% 94% Weight: Height: Intake/Output Summary (Last 24 hours) at 09/09/2021 0852 Last data filed at 09/09/2021 0830 Gross per 24 hour Intake 220 ml Output 600 ml Net -380 ml Physical Exam: General Appearance: Awake, alert, no acute distress Head: Normocephalic, atraumatic Eyes: Sclera anicteric, pupils equal Lungs: Clear to auscultation bilaterally, respirations unlabored Cardiovascular: Regular rate and rhythm, S1 and S2 normal, no murmur, rub or gallop, no peripheral edema Abdomen: Soft, non-tender to palpation Extremities: Extremities normal, atraumatic Skin: Warm and dry without rashes. Neurologic: Awake and alert, answering questions appropriately Psychosocial: Normal affect and mood Lab/Radiology/Diagnostic Review: Laboratory review: I have personally reviewed the labs. CBC: Recent Labs Lab Units 09/09/21 0035 WBC K/cumm 16.2* HEMOGLOBIN g/dL 12.2* HEMATOCRIT % 33.7* MCV fL 99.1* MCH pg 35.9* MCHC g/dL 36.2* RDW CV % 16.7* RDWSD fL 57.6* MPV fL 14.0* NEUTROS ABS K/cumm 14.8* CMP: Recent Labs Lab Units 09/09/21 0810 09/09/21 0310 09/08/21 2124 SODIUM mmol/L -- 137 -- POTASSIUM PLASMA mmol/L -- 3.7 -- CO2 mmol/L -- 30 -- BUN SERUM mg/dL -- 23 -- GLUCOSE mg/dL -- 159 -- POC GLUCOSE MONITOR mg/dL 119 -- < > CREATININE mg/dL -- 1.00 -- CALCIUM mg/dL -- 8.9 -- CHLORIDE mmol/L -- 97 -- ALBUMIN g/dL -- 3.2* -- AST Units/L -- 98* -- ALT Units/L -- 1,057* -- ALK PHOS Units/L -- 303* -- BILIRUBIN TOTAL mg/dL -- 1.9* -- TOTAL PROTEIN g/dL -- 6.4* -- ANIONGAP mmol/L -- 10 -- < > = values in this interval not displayed. LDH: Recent Labs Lab Units 09/07/212205 LACTATE DEHYDROGENASE (LDH) Units/L 294* Uric Acid: Recent Labs Lab Units 09/07/212205 URIC ACID mg/dL 5.3 Tacrolimus level: Recent Labs Lab Units 09/07/21 0428 TACROLIMUS RANDOM ng/mL <1.0 Sirolimus level: Cyclosporine level: PT: Recent Labs Lab Units 09/07/212205 PROTIME (PT) sec 13.1 PTT: Recent Labs Lab Units 10/21/21 2206 APTT sec 29 Radiology: Imaging review: I have reviewed the result(s) . Assessment/Plan Elevated LFTs Assessment & Plan -acute hepatitis panel negative/Improving after ERCP -ERCP findings as above -status post biliary stent placement. -monitor LFTs: AST and ALT improving -trend lipase: normalized -IV fluids * Upper GI bleed Assessment & Plan Endoscopy showed nonbleeding duodenal ulcer, esophagitis, coffee-ground like material in the entirestomach. -IV PPI b.i.d. -hold Xarelto -monitor blood counts -Will advance diet accordingly: soft mechanical advanced to full for this noon History of pulmonary embolism Assessment & Plan History of PE/DVT -history of DVT 2012, 2017, PE in 2012 -hold Xarelto due to GI bleed History of DVT (deep vein thrombosis)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 nightly Nightly and PRN ??? prednisoLONE acetate (PRED FORTE) 1 % ophthalmic suspension Administer 1 drop into the left eye4 (four) times a day 5 mL 11 ??? tacrolimus (PROGRAF) 0.5 mg immediate-release capsule TAKE 1 CAPSULE BY MOUTH EVERY OTHER DAY 15 capsule 3 ??? 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 voriCONAZOLE (VFEND) 200 mg tablet Take 200 mg by mouth 2 (two) times a day ??? 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 acetaminophen (TYLENOL) tablet 650 mg, 650 mg, oral, Q4H PRN, Jerry Carpenter MD ??? acetaminophen (TYLENOL) tablet 650 mg, 650 mg, oral, Q6H PRN, Jerry Carpenter MD ??? acyclovir (ZOVIRAX) tablet 400 mg, 400 mg, oral, TID, Jerry Carpenter MD, 400 mg at 09/08/21 1607 ??? albuterol HFA (PROVENTIL HFA,VENTOLIN HFA,PROAIR HFA) 90 mcg/actuation inhaler 1 puff, 1 puff, inhalation, Q4H PRN, Yolie Pop MD ? ? aluminum & magnesium myjomtxgd-obivemoxjdf-vumqfvqzraxyigu-lidocaine (MAGIC MOUTHWASH) suspension 1-1-1, 15 mL, swish & swallow, QID PRN, Jerry Carpenter MD ??? bacitracin-polymyxin B (POLYSPORIN) 500-10,000 unit/gram ointment tube 1 application, 1 application, topical, Q4H PRN, Jerry Carpenter MD ??? camphor-menthoL (SARNA) 0.5-0.5 % lotion, , topical, Q2H PRN, Jerry Carpenter MD ??? cefepime (MAXIPIME) 1,000 mg/10 mL in sterile water (premix) 1,000 mg, 1,000 mg, intravenous, Once PRN, Jerry Carpenter MD ??? dextromethorphan-guaiFENesin (ROBITUSSIN-DM) 2-20 mg/mL syrup 10 mL, 10 mL, oral, Q4H PRN, Jerry Carpenter MD, 10 mL at 09/08/21 1608 ??? dextrose (GLUTOSE) 40 % gel 15 g, 15 g, oral, Q15 Min PRN OR dextrose (D10W) 10% bolus 250 mL, 250 mL, intravenous, Q15 Min PRN, Jerry Carpenter MD ??? [START ON 09/09/2021] wdbgdmlmkug-ihlidslft-nxdocidj (TRELEGY ELLIPTA) 100-62.5-25 mcg inhaler 1 puff, 1 puff, inhalation, Daily, Yolie Pop MD ??? gabapentin (NEURONTIN) capsule 300 mg, 300 mg, oral, QID, Jerry Carpenter MD, 300 mg at ??? glucagon injection 1 mg, 1 mg, intramuscular, Q30 Min PRN, Jerry Carpenter MD ??? heparin 10 unit/mL flush 20-50 Units, 2-5 mL, intra-catheter, PRN, Jerry Carpenter MD ??? heparin 10 unit/mL flush 50 Units, 5 mL, intra-catheter, Q12H ROSA MARIA, Jerry Carpenter MD ??? insulin glargine (LANTUS, SEMGLEE) 100 unit/mL injection 10 Units, 10 Units, subcutaneous, Nightly, Jerry Carpenter MD, 10 Units at 09/07/212130 ??? insulin lispro (HumaLOG, ADMELOG) 100 unit/mL injection 0-10 Units, 0-10 Units, subcutaneous, TID with meals, Jerry Carpenter MD ??? insulin lispro (HumaLOG, ADMELOG) 100 unit/mL injection 0-5 Units, 0-5 Units, subcutaneous, Nightly, Jerry Carpenter MD, 2 Units at 09/07/212130 ??? insulin lispro (HumaLOG, ADMELOG) 100 unit/mL injection 5 Units, 5 Units, subcutaneous, TID with meals, Jerry Carpenter MD, 5 Units at 09/08/21 0900 ??? loperamide (IMODIUM) capsule 2 mg, 2 mg, oral, Q1H PRN, Jerry Carpenter MD ??? magnesium sulfate 4 g/100 mL in water (premix) 4 g, 4 g, intravenous, Q4H PRN, Jerry Carpenter MD ??? magnesium sulfate 6 g in sodium chloride 0.9% 250 mL IVPB, 6 g, intravenous, Q4H PRN, Jerry Carpenter MD ??? meropenem (MERREM) 1,000 mg/110 mL in sodium chloride 0.9% (premix) 1,000 mg, 1,000 mg, intravenous, Q8H ROSA MARIA, Jerry Carpenter MD, Stopped at 09/08/21 1557 ??? montelukast (SINGULAIR) tablet 10 mg, 10 mg, oral, Before breakfast, Jerry Carpenter MD, 10 mg at 09/08/21 0645 ??? mycophenolate mofetil (CELLCEPT) tablet 1,000 mg, 1,000 mg, oral, BID, Jerry Carpenter MD, 1,000mg at 09/08/21 0859 ??? ofloxacin (OCUFLOX) 0.3 % ophthalmic solution 1 drop, 1 drop, left eye, QID, Jerry Carpenter MD,1 drop at 09/08/21 1341 ??? oxyCODONE-acetaminophen (PERCOCET) 5-325 mg per tablet 1 tablet, 1 tablet, oral, Q4H PRN, Jerry Carpenter MD, 1 tablet at 09/08/21 0942 ??? pantoprazole (PROTONIX) 4 mg/mL injection 40 mg, 40 mg, intravenous, BID, Jerry Carpenter MD, 40mg at 09/08/21 0902 ??? polyvinyl alcohol-povidone (REFRESH CLASSIC) 1.4-0.6 % ophthalmic solution 2 drop, 2 drop, eacheye, Q4H PRN, Jerry Carpenter MD ??? potassium chloride 40 mEq/520 mL in sodium chloride 0.9% (premix) 40 mEq, 40 mEq, intravenous, Q4H PRN, Jerry Carpenter MD ??? potassium chloride ER (KLOR-CON) extended release tablet 40 mEq, 40 mEq, oral, Q4H PRN, Jerry Carpenter MD ??? prednisoLONE acetate (PRED FORTE) 1 % ophthalmic suspension 1 drop, 1 drop, left eye, QID, Jerry Carpenter MD, 1 drop at 09/08/21 1341 ??? sodium chloride (OCEAN) 0.65 % nasal spray 2 spray, 2 spray, each nostril, Q1H PRN, Jerry Carpenter MD ??? sodium chloride 0.9% infusion, 30 mL/hr, intravenous, Continuous PRN, Jerry Carpenter MD ? ? sodium chloride 0.9% irrigation 30 mL, 30 mL, swish & spit, QID, Jerry Carpenter MD ??? sodium chloride 0.9% IVPB 0-250 mL, 0-250 mL, intravenous, PRN, Jerry Carpenter MD ??? sodium phosphate - potassium phosphate (K-PHOS NEUTRAL) tablet 500 mg, 500 mg, oral, Daily PRN,Jerry Carpenter MD ??? tacrolimus (PROGRAF) immediate-release capsule 0.5 mg, 0.5 mg, oral, Q48H, Jerry Carpenter MD, 0.5 mg at 09/08/21 0859 ??? voriCONAZOLE (VFEND) tablet 200 mg, 200 mg, oral, BID, Jerry Carpenter MD, 200 mg at 09/08/21 0859 ??? white petrolatum-mineral oiL (EUCERIN) cream, , topical, Q2H PRN, Jerry Carpenter MD Family History Problem Relation Age of Onset ??? Heart disease Mother Family history of cardiac disorder - (Added by TW Conv) ??? Anesthesia problems Neg Hx Social History Tobacco Use ??? Smoking status: Current Every Day Smoker Packs/day: 0.25 Types: Cigarettes Start date: 1985 ??? Smokeless tobacco: Never Used ??? Tobacco comment: pt states tried to quit Substance Use Topics ??? Alcohol use: Not on file Review of Systems Review of systems per HPI; otherwise all other systems negative. Objective Vitals: Arrival Vitals Temp 09/07/21 0309 36.3 ??C (97.3 ??F) Pulse 09/07/21 0309 104 Resp 09/07/21 0309 18 BP 09/07/21 0309 108/74 SpO2 09/07/21 0309 97 % Temp src 09/07/21 1318 Temporal Heart Rate Source 09/07/21 1318 Monitor Patient Position 09/07/212014 Sitting BP Location 09/07/21 1435 Left arm FiO2 (%) -- 24hr Min/Max: Temp Min: 36.2 ??C (97.2 ??F) Max: 36.7 ??C (98.1 ??F) Pulse Min: 69 Max: 104 BP Min: 108/76 Max: 143/75 Resp Min: 16 Max: 16 SpO2 Min: 93 % Max: 98 % Most Recent : Vitals: 09/08/21 1230 BP: 117/62 BP Location: Patient Position: Pulse: 72 Resp: 16 Temp: 36.6 ??C (97.9 ??F) TempSrc: SpO2: 95% Weight: I/O last 2 completed shifts: In: 2433 [P.O.:550; I.V.:773; IV Piggyback:1110] Out: 200 [Urine:200] Physical exam: GEN: no acute distress HEENT: no mucositis, anicteric sclera Pulm: clear to ausculation bilaterally CV: rate and rhythm regular GI: soft, nondistended, bowel sounds active, RUQ tender to palpation Skin: no rashes, lesions Ext: no edema LN: no palpable lymphadenopathy Neuro: no focal deficits Lab/Radiology/Diagnostic Review: CBC: Recent Labs Lab Units 09/08/21 0447 WBC K/cumm 15.9* HEMOGLOBIN g/dL 11.1* HEMATOCRIT % 31.2* MCV fL 97.2* MCH pg 34.6* MCHC g/dL 35.6 RDW CV % 15.0* RDWSD fL 53.4* MPV fL 11.5 NEUTROS ABS K/cumm 14.1* CMP: Recent Labs Lab Units 09/08/21 1230 09/08/21 0858 09/08/21 0447 SODIUM mmol/L -- -- 141 POTASSIUM PLASMA mmol/L -- -- 4.1 CO2 mmol/L -- -- 29 BUN SERUM mg/dL -- -- 29* GLUCOSE mg/dL -- -- 156 POC GLUCOSE MONITOR mg/dL 162 < > -- CREATININE mg/dL -- -- 0.87 CALCIUM mg/dL -- -- 8.4* CHLORIDE mmol/L -- -- 105 ALBUMIN g/dL -- -- 2.7* AST Units/L -- -- 160* ALT Units/L -- -- 1,335* ALK PHOS Units/L -- -- 179* BILIRUBIN TOTAL mg/dL -- -- 2.4* TOTAL PROTEIN g/dL -- -- 5.3* ANIONGAP mmol/L -- -- 7 < > = values in this interval not displayed. LDH: Recent Labs Lab Units 09/07/21 220 LACTATE DEHYDROGENASE (LDH) Units/L 294* Uric Acid: Recent Labs Lab Units 09/07/21 220 URIC ACID mg/dL 5.3 Tacrolimus level: Recent Labs Lab Units 09/07/21 0428 TACROLIMUS RANDOM ng/mL <1.0 Sirolimus level: Cyclosporine level: PT: Recent Labs Lab Units 09/07/212205 PROTIME (PT) sec 13.1 PTT: Recent Labs Lab Units 09/07/212205 APTT sec 29 Radiology: I have reviewed all current imaging. Pathology: I have reviewed the current pathology. Assessment/Plan # Upper GI bleed: Endoscopy showed nonbleeding duodenal ulcer, esophagitis, coffee-ground like material in the entirestomach. -IV PPI b.i.d. 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 ? 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 # COPD -history of chronic hypoxic respiratory failure -on 3-5 L of oxygen at home at baseline -continue home dose of bronchodilator therapy. Albuterol p.r.n., Trelegy Ellipta -continue home dose of montelukast ?? # Neuropathy Continue home dose of gabapentin 300 mg 4 times a day * Jerry Carpenter MD - 09/07/2021 9:03 PM CDT BMT Hospitalist Progress Note BMT Day: Chief Complaint: Patient is a 55 y.o. male with chief complaint of GI bleed. 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 He was recently admitted to the hospital from 08/17/2021 to08/19/2021 for COPD exacerbation. Patient presented to the hospital with episode of hematemesis, patient states that he had some neckpain and was given a muscle relaxant by an outside hospital emergency department, after taking the Mucinex and patient felt nauseated and had an episode of hematemesis, he states that the vomitus wasbright red in color, denies any clots or coffee-ground nature. Denies any dizziness, lightheadedness, syncope or fall. Patient also complains of 8 on 10 epigastric abdominal pain radiating to his back sharp in nature. Patient currently denies any nausea. States that he is hungry and would like to eat. In the emergency department patient's labs were significant for elevated LFTs, patient underwent anERCP before admission which showed, grade D esophagitis with no active bleeding, coffee-ground likematerial in the entire stomach, nonbleeding duodenal ulcer and No signs of biliary obstruction or stone noted. A plastic biliary stent was placed. Blood cultures were drawn in the emergency department and the patient was started on IV meropenem. Patient also received 80 mg of IV pantoprazole in theemergency department. Active Treatment & Therapy Plans for [facility] Chemotherapy Treatment: [id number] - RS - Heme/BMT - INCB [id number] - EAP Ruxolitinib for GVHD (On Hold) Current day: Day 1, Cycle 3 and 4 (Planned for 01/25/2020) Following planned day: Day 1, Cycle 5-6 (Planned for 03/21/2020) Specialty Infusion Treatment: ZOLEDRONIC ACID (RECLAST) INFUSION Current treatment: Treatment 1 (Planned for 11/24/2021) Allergies Allergen Reactions ??? Adhesive Redness burn Current Facility-Administered Medications: ??? acetaminophen (TYLENOL) tablet 650 mg, 650 mg, oral, Q4H PRN, Jerry Carpenter MD ??? acetaminophen (TYLENOL) tablet 650 mg, 650 mg, oral, Q6H PRN, Jerry Carpenter MD ??? acyclovir (ZOVIRAX) tablet 400 mg, 400 mg, oral, TID, Jerry Carpenter MD ??? albuterol HFA (PROVENTIL HFA,VENTOLIN HFA,PROAIR HFA) 90 mcg/actuation inhaler 1 puff, 1 puff, inhalation, Q4H PRN (RT), Jerry Carpenter MD ? ? aluminum & magnesium cgncpkzyn-wmamhpozwwm-wooypgphwuxttbn-lidocaine (MAGIC MOUTHWASH) suspension 1-1-1, 15 mL, swish & swallow, QID PRN, Jerry Carpenter MD ??? bacitracin-polymyxin B (POLYSPORIN) 500-10,000 unit/gram ointment tube 1 application, 1 application, topical, Q4H PRN, Jerry Carpenter MD ??? camphor-menthoL (SARNA) 0.5-0.5 % lotion, , topical, Q2H PRN, Jerry Carpenter MD ??? cefepime (MAXIPIME) 1,000 mg/10 mL in sterile water (premix) 1,000 mg, 1,000 mg, intravenous, Once PRN, Jerry Carpenter MD ??? dextromethorphan-guaiFENesin (ROBITUSSIN-DM) 2-20 mg/mL syrup 10 mL, 10 mL, oral, Q4H PRN, Jerry Carpenter MD ??? dextrose (GLUTOSE) 40 % gel 15 g, 15 g, oral, Q15 Min PRN OR dextrose (D10W) 10% bolus 250 mL, 250 mL, intravenous, Q15 Min PRN, Jerry Carpenter MD ??? [START ON 09/08/2021] dxyjwczpbzk-fesqvmyaa-zqijislk (TRELEGY ELLIPTA) 100-62.5-25 mcg inhaler 1 puff, 1 puff, inhalation, Daily (RT), Jerry Carpenter MD ??? gabapentin (NEURONTIN) capsule 300 mg, 300 mg, oral, QID, Jerry Carpenter MD ??? glucagon injection 1 mg, 1 mg, intramuscular, Q30 Min PRN, Jerry Carpenter MD ??? heparin 10 unit/mL flush 20-50 Units, 2-5 mL, intra-catheter, PRN, Jerry Carpenter MD ??? heparin 10 unit/mL flush 50 Units, 5 mL, intra-catheter, Q12H ROSA MARIA, Jerry Carpenter MD ??? insulin glargine (LANTUS, SEMGLEE) 100 unit/mL injection 10 Units, 10 Units, subcutaneous, Nightly, Jerry Carpenter MD ??? [START ON 09/08/2021] insulin lispro (HumaLOG, ADMELOG) 100 unit/mL injection 0-10 Units, 0-10 Units, subcutaneous, TID with meals, Jerry Carpenter MD ??? insulin lispro (HumaLOG, ADMELOG) 100 unit/mL injection 0-5 Units, 0-5 Units, subcutaneous, Nightly, Jerry Carpenter MD ??? [START ON 09/08/2021] insulin lispro (HumaLOG, ADMELOG) 100 unit/mL injection 5 Units, 5 Units,subcutaneous, TID with meals, Jerry Carpenter MD ??? loperamide (IMODIUM) capsule 2 mg, 2 mg, oral, Q1H PRN, Jerry Carpenter MD ??? magnesium sulfate 4 g/100 mL in water (premix) 4 g, 4 g, intravenous, Q4H PRN, Jerry Carpenter MD ??? magnesium sulfate 6 g in sodium chloride 0.9% 250 mL IVPB, 6 g, intravenous, Q4H PRN, Jerry Carpenter MD ??? meropenem (MERREM) 1,000 mg/110 mL in sodium chloride 0.9% (premix) 1,000 mg, 1,000 mg, intravenous, Q8H ROSA MARIA, Jerry Carpenter MD, Stopped at 09/07/21 1156 ??? [START ON 09/08/2021] montelukast (SINGULAIR) tablet 10 mg, 10 mg, oral, Before breakfast, Jerry Carpenter MD ??? mycophenolate mofetil (CELLCEPT) tablet 1,000 mg, 1,000 mg, oral, BID, Jerry Carpenter MD ??? ofloxacin (OCUFLOX) 0.3 % ophthalmic solution 1 drop, 1 drop, left eye, QID, Jerry Carpenter MD ??? oxyCODONE-acetaminophen (PERCOCET) 5-325 mg per tablet 1 tablet, 1 tablet, oral, Q4H PRN, Jerry Carpenter MD ??? pantoprazole (PROTONIX) 4 mg/mL injection 40 mg, 40 mg, intravenous, BID, Jerry Carpenter MD ??? polyvinyl alcohol-povidone (REFRESH CLASSIC) 1.4-0.6 % ophthalmic solution 2 drop, 2 drop, eacheye, Q4H PRN, Jerry Carpenter MD ??? potassium chloride 40 mEq/520 mL in sodium chloride 0.9% (premix) 40 mEq, 40 mEq, intravenous, Q4H PRN, Jerry Carpenter MD ??? potassium chloride ER (KLOR-CON) extended release tablet 40 mEq, 40 mEq, oral, Q4H PRN, Jerry Carpenter MD ??? prednisoLONE acetate (PRED FORTE) 1 % ophthalmic suspension 1 drop, 1 drop, left eye, QID, Jerry Carpenter MD ??? sodium chloride (OCEAN) 0.65 % nasal spray 2 spray, 2 spray, each nostril, Q1H PRN, Jerry Carpenter MD ??? sodium chloride 0.9% infusion, 30 mL/hr, intravenous, Continuous PRN, Jerry Carpenter MD ? ? sodium chloride 0.9% irrigation 30 mL, 30 mL, swish & spit, JACOBO, Jerry Carpenter MD ??? sodium chloride 0.9% IVPB 0-250 mL, 0-250 mL, intravenous, PRN, Jerry Carpenter MD ??? sodium phosphate - potassium phosphate (K-PHOS NEUTRAL) tablet 500 mg, 500 mg, oral, Daily PRN,Jerry Carpenter MD ??? [START ON 09/08/2021] tacrolimus (PROGRAF) immediate-release capsule 0.5 mg, 0.5 mg, oral, Q48H, Jerry Carpenter MD ??? voriCONAZOLE (VFEND) tablet 200 mg, 200 mg, oral, BID, Jerry Carpenter MD ??? white petrolatum-mineral oiL (EUCERIN) cream, , topical, Q2H PRN, Jerry Carpenter MD Objective Vitals: 24hr Min/Max: Temp Min: 36 ??C (96.8 ??F) Max: 36.8 ??C (98.2 ??F) Pulse Min: 72 Max: 108 BP Min: 108/73 Max: 177/89 Resp Min: 13 Max: 22 SpO2 Min: 91 % Max: 100 % Most Recent : Vitals: 09/07/212014 BP: 143/75 BP Location: Right arm Patient Position: Sitting Pulse: 72 Resp: 16 Temp: 36.6 ??C (97.9 ??F) TempSrc: Oral SpO2: 97% Weight: I/O last 2 completed shifts: In: 1310 [I.V.:200; IV Piggyback:1110] Out: - ICE Score: No data found. Baseline ICE Score: CRS and ICANS Grading: No data found. No data found. No data found. Physical exam: General: Well appearing, NAD, appears stated age Skin: no rash, normal color and turgor HEENT: normocephalic, PERRLA, EOMI, no mucositis CV: RRR. No m/g/r, normal S1S2 Lungs: CTAB, no w/r/r, unlabored respiratory effort Abdomen: Soft, epigastric, right upper quadrant tenderness , nondistended, positive bowel sounds Extremities: Atraumatic, acyanotic, no TTP, no edema Neuro: AAOx3, CN II-XI grossly intact, normal speech Psych: Appropriate mood, affect, and judgement. Lab/Radiology/Diagnostic Review: I have reviewed the laboratory, radiologic, and diagnostic results. CBC: Recent Labs Lab Units 09/07/21 1649 WBC K/cumm 17.0* HEMOGLOBIN g/dL 13.5 HEMATOCRIT % 38.8* MCV fL 97.2* MCH pg 33.8* MCHC g/dL 34.8 RDW CV % 14.8 RDWSD fL 52.9* MPV fL 10.8 NEUTROS ABS K/cumm 14.5* CMP: Recent Labs Lab Units 09/07/21 1855 09/07/21 1651 09/07/21 1649 SODIUM mmol/L -- -- 142 POTASSIUM PLASMA mmol/L -- -- 3.9 CO2 mmol/L -- -- 30 BUN SERUM mg/dL -- -- 29* GLUCOSE mg/dL -- -- 242* POC GLUCOSE MONITOR mg/dL 210* < > -- CREATININE mg/dL -- -- 0.86 CALCIUM mg/dL -- -- 9.1 CHLORIDE mmol/L -- -- 103 ALBUMIN g/dL -- -- 3.3* AST Units/L -- -- 352* ALT Units/L -- -- 2,123* ALK PHOS Units/L -- -- 190* BILIRUBIN TOTAL mg/dL -- -- 3.1* TOTAL PROTEIN g/dL -- -- 6.4* ANIONGAP mmol/L -- -- 9 < > = values in this interval not displayed. LDH: Uric Acid: Tacrolimus level: Recent Labs Lab Units 09/07/21427 TACROLIMUS RANDOM ng/mL <1.0 Sirolimus level: Cyclosporine level: PT: Recent Labs Lab Units 09/07/21427 PROTIME (PT) sec 14.9* PTT: Recent Labs Lab Units 09/07/21427 APTT sec 28 Radiology: FL ERCP Biliary Duct The images from this study are not interpreted by Radiology. Please refer to the physician's procedure / OR operative note. CT Chest PE (CTA) Abdomen Pelvis W Contrast Narrative: EXAMINATION: CT CHEST PE (CTA) ABDOMEN PELVIS W CONTRAST HISTORY: 55-year-old man with leukemia status post stem cell transplant in remission complaining of shortness of breath and abdominal pain. TECHNIQUE: Computed tomographic images were acquired using a chest angiographic protocol optimized for pulmonary embolism. Computed tomographic examination of the abdomen and pelvis with intravenous contrast was performed using a standard protocol. Contrast enhanced transaxial images were obtained following the intravenous administration of 100 ml of nonionic contrast. Multiplanar reformatted images and three-dimensional images were obtained on the 3-D workstation and sent to the PACS archival system. COMPARISON: Chest CT 11/20/2019; CT abdomen and pelvis 02/02/2013 FINDINGS: Chest: A 5 mm subsolid nodule in the right lower lobe with central lucency is seen at the previously seen site of a small nodule (table position -452). There has been interval development of multiple bilateral tree-in-bud and nodular opacities throughout both lungs. Emphysematous changes are seen. There is scarring in the right lung apex. There is no pleural effusion or pneumothorax. The thyroid enhances homogeneously. There is no supraclavicular, axillary, or mediastinal lymphadenopathy. The heart is normal in size with a trace pericardial effusion. There is no pulmonary embolism. The aorta and its branches are normal in course and caliber with scattered atherosclerotic calcifications. There are coronary artery cusp calcifications. There is no suspicious osseous lytic or blastic lesion. There is mild thickening of the distal esophagus, which can be seen in the setting of esophagitis. CT imaging evidence of right heart strain: No Abdomen/pelvis: The liver and pancreas are normal. Hyperdensities in the gallbladder wall may represent calcifications and is stable dating back to 2012. A hypodensity along the pancreatic tail is favored to represent a lymphangioma given its configuration. The spleen is diminutive. Adrenal glands and kidneys are normal. The urinary bladder is normal. The colon and small bowel is normal in course and caliber. There is diverticulosis without diverticulitis. The appendix is normal. The stomach is mildly distended and fluid-filled. A duodenal diverticulum is seen. The aorta and its branches are normal course and caliber with scattered atherosclerotic calcifications. There is stenosis of the origins of the renal arteries. There is no pelvic, retroperitoneal, or abdominal lymphadenopathy. There is no intraperitoneal free fluid or gas. There is no suspicious osseous lytic or blastic lesion. Impression: 1. Multiple tree-in-bud and nodular opacities are seen throughout the lungs with extensive plugged bronchi compatible with a combination of aspiration and infectious bronchiolitis. 2. No acute abnormality in the abdomen or pelvis. 3. No pulmonary embolism. ADDENDUM - This addendum is being placed on the report for a time dependent finding on a patient who is admitted to the hospital (2B). The esophagus is thick walled, which can be seen in esophagitis. The lung findings are compatible with aspiration and/or infectious bronchiolitis. These findings were communicated to Dr. Pelayo by Dr. Michael Chand at 0910 on . Dictated by: Michael Chand M.D. The radiology attending physician has personally reviewed this study, and had reviewed and/or edited this written report and agrees with it. Electronically signed by: Ranjan Au M.D. RU Narrative: EXAMINATION: LIMITED ABDOMINAL SONOGRAM HISTORY: 55-year-old male with history of AML status post stem cell transplant currently in remission. Complicated by bseoh-ehwobk-qsxj disease of the eye and lung. Currently is 2 days of epigastric abdominal pain. COMPARISON: None FINDINGS: Liver: The liver is normal in size. The echotexture is normal. The echogenicity is normal. There is no surface nodularity. There are focal areas of fatty sparing versus fat deposition around the gallbladder and in the right liver Gallbladder: The gallbladder is normal in size. There are stones and sludge within the gallbladder. There is no gallbladder wall thickening. Bile Duct: There is no intrahepatic bile duct dilatation. The diameter of the common duct is 4 mm in the proximal segment and 3 mm in the mid segment. Right Kidney: There is no hydronephrosis in the visualized portions of the right kidney. Pancreas: The visualized portions of the body of the pancreas are normal. Dr. Neena Higginbotham (vice president and portfolio manager) personally participated in sonographic imaging of this patient. Impression: 1. Cholelithiasis and gallbladder sludge without evidence of cholecystitis. 2. Normal liver parenchyma. Dictated by: Neena Higginbotham MD The radiology attending physician has personally reviewed this study, and had reviewed and/or edited this written report and agrees with it. Electronically signed by: Kirt Cali M.D. ECG 12 lead Azucena Leal MD 09/07/2021 3:29 AM ECG 12 lead Date/Time: 09/07/2021 3:28 AM Performed by: Azucena Leal MD Authorized by: Azucena Leal MD Rate: ECG rate: 101 ECG rate assessment: tachycardic Rhythm: Rhythm: sinus tachycardia Ectopy: Ectopy: none QRS: QRS axis: Right QRS intervals: Normal Conduction: Conduction: normal ST segments: ST segments: Normal T waves: T waves: normal Previous ECG: Previous ECG: Compared to current Date of previous EC08/17/2021 Similarity: No change Interpretation: Interpretation: No significant change Recommended Follow-up: Recommended follow up: further workup in the ED Assessment/Plan 1. Upper GI bleed: Endoscopy showed nonbleeding duodenal ulcer, esophagitis, coffee-ground like material in the entirestomach. -IV PPI b.i.d.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 09/07 628 Comment: I have personally reviewed the past history including specialist notes, prior admissions, and imaging. I have personally reviewed the CT scan of the chest/abd/pelvis and see no acute intra-abdominal pathology. By: Anaid Kruse MD Time: 09/07 103 Comment: Re-evaled. Having abdominal ttp worse epigastric/ruq/periumbilical. CT w/ possible infectious bronchiolitis. RUQ ultrasound w/ biliary stones and slude but no overt choleyctutis/choledocholithiasis. D bili elevated, elevated transaminases, elevated lipase. Plan to start meropenem to cover possible pneumonia and cholangitis. BMT fellow aware of lab abnormalities. Consulted Biliary service. By: Parmjit Pelayo MD Time: 09/07 363 Comment: Biliary to eval By: Parmjit Pelayo MD Time: 09/07 6967 Comment: Taken to endo suite by biliary. By: Parmjit Pelayo MD Time: 09/07 9061 Comment: Teaching Resident Note: PMHX AML s/p transplant c/b GVHD, DM, COPD. N/V. Thought to be 2/2 cholelithiasis. To ERCP, found blood in stomach, became hypotensive. Will return to ER. Being admitted to BMT, but will need re-eval prior dispo. ?resuscitation? By: Brady Lazar MD Time: 09/07 1625 Comment: On re-eval, pt feels much better and is on the phone about to call his ride to take him home. Denies any sx including abdominal pain. He agrees to hold off on calling his ride until we can get some re-peat lab work and understands the high likelihood that we will recommend admission to hospital By: Michael Parham MD Time: 09/07 8523 Comment: 1u prepared, explained to pt that we recommend admission, he is amenable. By: Michael Parham MD Suarez, Daniel Fidel, MD Resident 09/08/21 0006 * Plan of Care - Beata May RN - 09/07/2021 9:53 AM CDT Clinical status re/evaluated by ER case managment. Pt remains in ER as a boarder,still appropriate for IP level of care. * ED Re-evaluation Note - Parmjit Pelayo MD - 09/07/2021 7:09 AM CDT ED Re-evaluation TRANSITION OF CARE: I, Parmjit Pelayo MD, am taking signout from Dr. Shah (Resident) under supervision of Dr. Bravo (Attending). I have reviewed all pertinent vital signs, allergies, and history available in the chart. Summary: 55 y.o. male H/o AML in remission c/b gvhd on immunosuppresants, here for abdomianl pain. Has elevated lipase, AST/ALT significantly elevated. 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 Pt is feeling ill and has been for 2-3 days. He has had generalized weakness. Last BM yesterday. Patient denies any fevers, chills, headache, vision change, cough, shortness of breath, chest pain, nausea, vomiting, abdominal pain, extremity pain, focal neurologic weakness. Exam: Aox3, NAD. Skin with slight jaundice. Head normocephalic, atraumatic. PERRL, EOMI. Oropharynxclear, no tonsillar exudates. Normal respiratory effort, lungs clear. Heart regular rate and rhythm, no R/G/M. Abd flat, soft, TTP in RUQ and epigastrium. Extremities WWP, moving equally with full strength. Sensation intact throughout. Skin warm and dry without rashes. MDM: 55 yo M here with abdominal pain and hemoptysis vs hematemesis. Ddx includes gastritis, PUD, PE, pneumonia. Will give protonix, keep on home O2. Will obtain CT Pe/abd/pelvis with unclear source of bleeding. Labs pending. By: Anaid Kruse MD Time: 09/07 0520 Value: Lipase, Serum(!!): 650 Comment: (Reviewed) By: Cruz Shah MD Time: 09/07 531 Value: Bilirubin, total(!): 3.2 Comment: (Reviewed) By: Cruz Shah MD Time: 09/07 627 Comment: CT unremarkable, will order RUQ US. By: Anaid Kruse MD Time: 09/07 0681 Comment: I have personally reviewed the past history including specialist notes, prior admissions, and imaging. I have personally reviewed the CT scan of the chest/abd/pelvis and see no acute intra-abdominal pathology. By: Anaid Kruse MD Time: 09/07 8457 Comment: Re-evaled. Having abdominal ttp worse epigastric/ruq/periumbilical. CT w/ possible infectious bronchiolitis. RUQ ultrasound w/ biliary stones and slude but no overt choleyctutis/choledocholithiasis. D bili elevated, elevated transaminases, elevated lipase. Plan to start meropenem to cover possible pneumonia and cholangitis. BMT fellow aware of lab abnormalities. Consulted Biliary service. By: Parmjit Pelayo MD Time: 09/07 1047 Comment: Biliary to eval By: Parmjit Pelayo MD Time: 09/07 1307 Comment: Taken to endo suite by biliary. By: Parmjit Pelayo MD Time: 09/07 1505 Comment: Teaching Resident Note: PMHX AML s/p transplant c/b GVHD, DM, COPD. N/V. Thought to be 2/2 cholelithiasis. To ERCP, found blood in stomach, became hypotensive. Will return to ER. Being admitted to BMT, but will need re-eval prior dispo. ?resuscitation? By: Brady Lazar MD The primary encounter diagnosis was Acute hepatitis. Diagnoses of Jaundice, Abdominal pain, and Hematemesis, presence of nausea not specified were also pertinent to this visit. Parmjit Pelayo MD Resident 09/07/21 1615 * ED Procedure Note - Azucena Leal MD - 09/07/2021 3:28 AM CDT Associated Order(s): ECG 12 lead Procedure ECG 12 lead Date/Time: 09/07/2021 3:28 AM Performed by: Azucena Leal MD Authorized by: Azucena Leal MD Rate: ECG rate: 101 ECG rate assessment: tachycardic Rhythm: Rhythm: sinus tachycardia Ectopy: Ectopy: none QRS: QRS axis: Right QRS intervals: Normal Conduction: Conduction: normal ST segments: ST segments: Normal T waves: T waves: normal Previous ECG: Previous ECG: Compared to current Date of previous EC08/17/2021 Similarity: No change Interpretation: Interpretation: No significant change Recommended Follow-up: Recommended follow up: further workup in the ED Azucena Leal MD 09/07/21 0329 documented in this encounter Plan of Treatment Pending Results Name Type Priority Associated Diagnoses Date /Time FL ERCP Endo Imaging Procedure IP Routine Abdominal pain Hematemesis, presence of nausea not specified 09/07/2021 2:34 PM CDT Type and screen Lab STAT 10:06 PM CDT Scheduled Orders Name Type Priority Associated Diagnoses Orde r Schedule Type and screen Lab STAT STAT for 1 Occurrences starting 09/07/2021 until 09/07/2021 C. difficile testing Stool Microbiology STAT Lab orders - as needed, STAT collection for 1 Occurrences starting 09/07/2021 documented as of this encounter Procedures Procedure Name Priority Date/Time Associated Diagnosis Comments POCT GLUCOSE DEVICE Routine 09/10/2021 1 2:02 PM CDT TACROLIMUS LEVEL, TROUGH Timed 09/10/2021 9:05 AM CDT GAMMA GT Timed 09/10/2021 9:05 AM CDT POCT GLUCOSE DEVICE Routine 09/10/2021 7 :17 AM CDT BMT CBC Routine 09/10/2021 12:54 AM CDT EGFR Routine 09/10/2021 12:54 AM CDT TACROLIMUS LEVEL, TROUGH Routine 09/10/2021 12:54 AM CDT MANUAL DIFFERENTIAL Routine 09/10/2021 1 2:54 AM CDT CBC WITHOUT DIFFERENTIAL Routine 09/10/2021 12:54 AM CDT PHOSPHORUS Routine 09/10/2021 12:54 AM CDT MAGNESIUM Routine 09/10/2021 12:54 AM CDT LIPASE Routine 09/10/2021 12:54 AM CDT COMPREHENSIVE METABOLIC PANEL Routine 09/10/2021 12:54 AM CDT POCT GLUCOSE DEVICE Routine 09/09/2021 9 :37 PM CDT POCT GLUCOSE DEVICE Routine 09/09/2021 7 :01 PM CDT POCT GLUCOSE DEVICE Routine 09/09/2021 1 2:10 PM CDT POCT GLUCOSE DEVICE Routine 09/09/2021 8 :10 AM CDT EGFR Routine 09/09/2021 3:10 AM CDT PHOSPHORUS Routine 09/09/2021 3:10 AM CDT MAGNESIUM Routine 09/09/2021 3:10 AM CDT LIPASE Routine 09/09/2021 3:10 AM CDT COMPREHENSIVE METABOLIC PANEL Routine 09/09/2021 3:10 AM CDT BMT CBC Routine 09/09/2021 12:35 AM CDT MANUAL DIFFERENTIAL Routine 09/09/2021 1 2:35 AM CDT CBC WITHOUT DIFFERENTIAL Routine 09/09/2021 12:35 AM CDT POCT GLUCOSE DEVICE Routine 09/08/2021 9 :24 PM CDT POCT GLUCOSE DEVICE Routine 09/08/2021 5 :56 PM CDT POCT GLUCOSE DEVICE Routine 09/08/2021 1 2:30 PM CDT POCT GLUCOSE DEVICE Routine 09/08/2021 8 :58 AM CDT BMT CBC Routine 09/08/2021 4:47 AM CDT EGFR Routine 09/08/2021 4:47 AM CDT MANUAL DIFFERENTIAL Routine 09/08/2021 4 :47 AM CDT CBC WITHOUT DIFFERENTIAL Routine 09/08/2021 4:47 AM CDT PHOSPHORUS Routine 09/08/2021 4:47 AM CDT MAGNESIUM Routine 09/08/2021 4:47 AM CDT LIPASE Routine 09/08/2021 4:47 AM CDT COMPREHENSIVE METABOLIC PANEL Routine 09/08/2021 4:47 AM CDT URINALYSIS AND REFLEX TO MICROSCOPIC AND CULTURE STAT 09/08/2021 2:15 AM CDT URINALYSIS, MICROSCOPIC ONLY STAT 09/08/2021 2:15 AM CDT BMT CBC STAT 09/07/2021 10:06 PM CDT EGFR STAT 09/07/2021 10:06 PM CDT MANUAL DIFFERENTIAL STAT 09/07/2021 1 0:06 PM CDT APTT STAT 09/07/2021 10:06 PM CDT PROTIME-INR STAT 09/07/2021 10:06 PM CDT FIBRINOGEN STAT 09/07/2021 10:06 PM CDT CBC WITHOUT DIFFERENTIAL STAT 09/07/2021 10:06 PM CDT URIC ACID STAT 09/07/2021 10:06 PM CDT PHOSPHORUS STAT 09/07/2021 10:06 PM CDT MAGNESIUM STAT 09/07/2021 10:06 PM CDT LACTATE DEHYDROGENASE STAT 09/07/2021 10:06 PM CDT COMPREHENSIVE METABOLIC PANEL STAT 09/07/2021 10:06 PM CDT ECG 12-LEAD STAT 09/07/2021 10:03 PM CDT POCT GLUCOSE DEVICE Routine 09/07/2021 9 :24 PM CDT XR CHEST 1 VIEW IP Routine 09/07/2021 9:10 PM CDT POCT GLUCOSE DEVICE Routine 09/07/2021 6 :55 PM CDT PREPARE RBC Timed 09/07/2021 5:36 PM CDT POC BLOOD GAS AND CHEMISTRIES, ARTERIAL Routine 09/07/2021 5:19 PM CDT POCT GLUCOSE DEVICE Routine 09/07/2021 4 :51 PM CDT EGFR STAT 09/07/2021 4:49 PM CDT DIFFERENTIAL AUTO STAT 09/07/2021 4:4 9 PM CDT CBC WITH AUTO DIFFERENTIAL STAT 09/07/2021 4:49 PM CDT COMPREHENSIVE METABOLIC PANEL STAT 09/07/2021 4:49 PM CDT FL ERCP BILIARY DUCT IP Routine 09/07/2021 2:34 PM CDT ERCP IP Routine 09/07/2021 2:34 PM CDT Abdominal pain Hematemesis, presence of nausea not specified ERCP IP Routine 09/07/2021 2:34 PM CDT Abdominal pain Hematemesis, presence of nausea not specified RAD S AND I BILIARY AND PANCREATIC DUCTAL SYSTEMS 09/07/2021 1:40 PM CDT Abdominal pain Hematemesis, presence of nausea not specified POCT GLUCOSE DEVICE Routine 09/07/2021 1 :34 PM CDT ERCP 09/07/2021 1:04 PM CDT BLOOD CULTURE Routine 09/07/2021 10:19 AM CDT BLOOD CULTURE STAT 09/07/2021 10:19 AM CDT POCT GLUCOSE DEVICE Routine 09/07/2021 9 :29 AM CDT US RUQ ED 09/07/2021 8:38 AM CDT POCT GLUCOSE DEVICE Routine 09/07/2021 5 :56 AM CDT COVID-19 CORONAVIRUS RNA Routine 09/07/2021 5:[address] CHEST PE ABDOMEN PELVIS W CONTRAST ED 09/07/2021 5:43 AM CDT POCT CREATININE - DEVICE Routine 09/07/2021 4:31 AM CDT EGFR STAT 09/07/2021 4:28 AM CDT DIFFERENTIAL AUTO STAT 09/07/2021 4:2 8 AM CDT CRITICAL RESULT CALLBACK CHEMISTRY STAT 09/07/2021 4:28 AM CDT CBC WITH AUTO DIFFERENTIAL STAT 09/07/2021 4:28 AM CDT TACROLIMUS LEVEL, RANDOM STAT 09/07/2021 4:28 AM CDT HEPATITIS PANEL, ACUTE STAT 09/07/2021 4:28 AM CDT APTT STAT 09/07/2021 4:28 AM CDT ERYTHROCYTE SEDIMENTATION RATE STAT 09/07/2021 4:28 AM CDT PROTIME-INR STAT 09/07/2021 4:28 AM CDT TYPE AND SCREEN STAT 09/07/2021 4:28 AM CDT CRP (ACUTE PHASE) STAT 09/07/2021 4:2 8 AM CDT TRIGLYCERIDES STAT 09/07/2021 4:28 AM CDT LIPASE STAT 09/07/2021 4:28 AM CDT CREATINE KINASE (CK), TOTAL STAT 09/07/2021 4:28 AM CDT BILIRUBIN, DIRECT STAT 09/07/2021 4:2 8 AM CDT AMMONIA STAT 09/07/2021 4:28 AM CDT ACETAMINOPHEN LEVEL STAT 09/07/2021 4 :28 AM CDT COMPREHENSIVE METABOLIC PANEL STAT 09/07/2021 4:28 AM CDT POCT GLUCOSE DEVICE Routine 09/07/2021 4 :26 AM CDT ECG 12-LEAD STAT 09/07/2021 3:28 AM CDT POCT GLUCOSE DEVICE Routine 09/07/2021 3 :15 AM CDT documented in this encounter Results * POCT glucose (09/10/2021 12:02 PM CDT) [facility] Signature Glucose, POC 80 70 - 199 mg/dL [facility] Glucose comment 1 RN Notified [facility] Blood 09/10/2021 12:0 2 PM CDT 09/10/2021 12:02 PM CDT Anaid Kruse MD LAB POCT ORDERABLES - DEVICE Final Result Performing Organization Address [facility] de Phone Number [facility] [place] [address] * Tacrolimus level trough (09/10/2021 9:05 AM CDT) Tacrolimus trough 2.5 ng/mL [facility] Comment: Interpretive Data Testing performed by liquid chromatography-tandem mass spectrometry. ??Therapeutic concentrations vary depending on type of transplanted organ and time elapsed since transplant. ??Typical trough concentrations range from 5-15 ng/mL. ??This test was developed and its performance characteristics determined by the [facility] consistent with CLIA requirements. ??This test has not been cleared or approved by the US Food and Drug administration. ??Current interpretive data last reviewed 2020. Blood 09/10/2021 9:05 AM CDT 09/10/2021 9:31 AM CDT Aidan Carl MD LAB BLOOD ORDERABLES Final Re sult Performing Organization Address [facility] de Phone Number [facility] Department [place] [address] * (ABNORMAL) Gamma GT (09/10/2021 9:05 AM CDT) GGT 479(H) 10 - 50 Units/L [facility] Blood 09/10/2021 9:05 AM CDT 09/10/2021 9:31 AM CDT Aidan Carl MD LAB BLOOD ORDERABLES Final Re sult Performing Organization Address [facility] de Phone Number [facility] Department [place] [address] * POCT glucose (09/10/2021 7:17 AM CDT) [facility] Glucose, POC 163 70 - 199 mg/dL [facility] Glucose comment 1 RN Notified [facility] Blood 09/10/2021 7:17 AM CDT 09/10/2021 7:17 AM CDT Anaid Kruse MD LAB POCT ORDERABLES - DEVICE Final Result [facility] Department [place] [address] * eGFR (09/10/2021 12:54 AM CDT) [facility] eGFR >90 90 - 130 mL/min/1.7 3 m2 [facility] Comment: Interpretive Data Reference Interval Normal ?>/= 90 mL/min/1.73m2 Mildly decreased* ? 60 - 89 mL/min/1.73m2 Mildly to moderately decreased ?45 - 59 mL/min/1.73m2 Moderately to severely decreased ??30 - 44 mL/min/1.73m2 Severely decreased ?15 - 29 mL/min/1.73m2 Kidney Failure ?< 15 ??mL/min/1.73m2 *Relative to young adult level Estimated glomerular filtration rate is determined by the CKD-EPI equation recommended by the National Kidney Foundation (KDIGO 2012 Clinical Practice Guideline for the Evaluation and Management of Chronic Kidney Disease. Kidney Intnl Suppl Nov 2012;3:1). The CKD-EPI equation should not be used for patients with unstable renal function and has not been validated in children and those over 70. Current interpretive data was last reviewed 2020 Blood 09/10/2021 12:5 4 AM CDT 09/10/2021 1:26 AM CDT us Jerry Carpenter MD LAB BLOOD ORDERABLES Final Resul t [facility] Department [place] [address] * (ABNORMAL) Manual Differential (09/10/2021 12:54 AM CDT) Differential Manual [facility] Cells Counted 115 [facility] Neutrophil abs 15.9(H) 1.7 - 6.5 K/cumm [facility] Imm gran abs 0.2(H) 0.0 - 0.1 K/cumm [facility] Lymphocyte abs 1.6 0.8 - 3.3 K/cumm [facility] Monocyte abs 1.2(H) 0.2 - 0.8 K/cumm [facility] Neutrophil pct 84.3 % [facility] Comment: Interpretive Data Percent cell count reference ranges are not reported, since discordance with absolute values may lead to misinterpretation of CBC data. Current Interpretive Data was last revised on 2018. Lymphocyte pct 8.7 % [facility] Comment: Interpretive Data Percent cell count reference ranges are not reported, since discordance with absolute values may lead to misinterpretation of CBC data. Current Interpretive Data was last revised on 2018. Monocyte pct 6.1 % [facility] Comment: Interpretive Data Percent cell count reference ranges are not reported, since discordance with absolute values may lead to misinterpretation of CBC data. Current Interpretive Data was last revised on 2018. Myelocyte pct 0.9 % [facility] RBC morphology Present(A) [facility] Anisocytosis Slight(A) [facility] Poikilocytosis Slight(A) [facility] Macrocytes 3-7/HPF(A) [facility] Platelet estimate Decreased( A) [facility] Blood 09/10/2021 12:5 4 AM CDT 09/10/2021 1:26 AM CDT Jerry Carpenter MD LAB BLOOD ORDERABLES Edited Resu lt - Final [facility] Department [place] [address] * (ABNORMAL) CBC without differential (09/10/2021 12:54 AM CDT) WBC 18.9(H) 3.8 - 9.9 K/cumm [facility] Hgb 12.7(L) 13.0 - 17.5 g/dL [facility] Hct 37.8(L) 38.9 - 50.3 % [facility] Plt 115(L) 150 - 400 K/cumm [facility] MPV 11.1 9.1 - 12.3 fL [facility] RBC 3.81(L) 4.30 - 5.80 M/cumm [facility] MCV 99.2(H) 81.3 - 96.4 fL [facility] MCH 33.3 27.1 - 33.3 pg [facility] MCHC 33.6 32.3 - 35.7 g/dL [facility] RDW CV 15.9(H) 11.1 - 14.9 % [facility] RDW SD 55.5(H) 35.7 - 48.1 fL [facility] NRBC abs 0.68(H) 0.00 - 0.01 K/cumm [facility] Blood 09/10/2021 12:5 4 AM CDT 09/10/2021 1:26 AM CDT Jerry Carpenter MD LAB BLOOD ORDERABLES Final Resul t [facility] Department [place] [address] * Lipase (09/10/2021 12:54 AM CDT) Lipase 37 10 - 99 Units/L [facility] Blood 09/10/2021 12:5 4 AM CDT 09/10/2021 1:26 AM CDT us Jerry Carpenter MD LAB BLOOD ORDERABLES Final Resul t [facility] Department [place] [address] * (ABNORMAL) Comprehensive metabolic panel (09/10/2021 12:54 AM CDT) Pathologist [facility] Sodium 139 135 - 145 mmol/L [facility] Potassium, pl 3.6 3.3 - 4.9 mmol/L [facility] Chloride 98 97 - 110 mmol/L [facility] CO2 29 22 - 32 mmol/L [facility] Anion gap 12 2 - 15 mmol/L [facility] BUN 12 8 - 25 mg/dL [facility] Creatinine 0.84 0.80 - 1.30 mg/dL [facility] Glucose 145 70 - 199 mg/dL [facility] Comment: Interpretive Data Fasting glucose >/= [...] 2017. Calcium 9.0 8.5 - 10.3 mg/dL [facility] Bilirubin, total 2.0(H) 0.1 - 1.2 mg/dL [facility] Protein, pl 7.0 6.5 - 8.5 g/dL [facility] Albumin 3.4(L) 3.5 - 5.0 g/dL [facility] Alk phos 511(H) 40 - 130 Units/L [facility] ALT 823(H) 7 - 55 Units/L [facility] AST 86(H) 10 - 50 Units/L [facility] Blood 09/10/2021 12:5 4 AM CDT 09/10/2021 1:26 AM CDT us Jerry Carpenter MD LAB BLOOD ORDERABLES Final Resul t Performing Organization Address [facility] de Phone Number [facility] [place] [address] * Tacrolimus level trough (09/10/2021 12:54 AM CDT) Tacrolimus trough 2.9 ng/mL [facility] Comment: Interpretive Data Testing performed by liquid chromatography-tandem mass spectrometry. ??Therapeutic concentrations vary depending on type of transplanted organ and time elapsed since transplant. ??Typical trough concentrations range from 5-15 ng/mL. ??This test was developed and its performance characteristics determined by the [facility] consistent with CLIA requirements. ??This test has not been cleared or approved by the [place] Food and Drug administration. ??Current interpretive data last reviewed 2020. Blood 09/10/2021 12:5 4 AM CDT 09/10/2021 1:26 AM CDT Narrative [facility] - 09/10/2021 7:20 AM CDT Draw within 30 minutes of AM dose. us Jerry Carpenter MD LAB BLOOD ORDERABLES Final Resul t Performing Organization Address [facility] de Phone Number [facility] Department [place] [address] * Phosphorus (09/10/2021 12:54 AM CDT) Phosphorus, pl 2.6 2.3 - 4.5 mg/dL [facility] Blood 09/10/2021 12:5 4 AM CDT 09/10/2021 1:26 AM CDT us Jerry Carpenter MD LAB BLOOD ORDERABLES Final Resul t Performing Organization Address [facility]/[place] [address] * Magnesium (09/10/2021 12:54 AM CDT) Magnesium 1.6 1.4 - 2.5 mg/dL [facility] Blood 09/10/2021 12:5 4 AM CDT 09/10/2021 1:26 AM CDT Jerry Carpenter MD LAB BLOOD ORDERABLES Final Resul t Performing Organization Address [facility] [place] [place] [address] * POCT glucose (09/09/2021 9:37 PM CDT) Glucose, POC 171 70 - 199 mg/dL [facility] Blood 09/09/2021 9:37 PM CDT 09/09/2021 9:37 PM CDT Anaid Kruse MD LAB POCT ORDERABLES - DEVICE Final Result Performing Organization Address [facility] Co de Phone Number [facility] [place] [address] * POCT glucose (09/09/2021 7:01 PM CDT) Glucose, POC 180 70 - 199 mg/dL [facility] Blood 09/09/2021 7:01 PM CDT 09/09/2021 7:01 PM CDT Anaid Kruse MD LAB POCT ORDERABLES - DEVICE Final Result Performing Organization Address [facility]/ZIP Co de Phone Number [facility] [place] [address] * POCT glucose (09/09/2021 12:10 PM CDT) Glucose, POC 114 70 - 199 mg/dL [facility] Blood 09/09/2021 12:1 0 PM CDT 09/09/2021 12:10 PM CDT Anaid Kruse MD LAB POCT ORDERABLES - DEVICE Final Result Performing Organization Address [facility] de Phone Number [facility] [place] [address] * POCT glucose (09/09/2021 8:10 AM CDT) Glucose, POC 119 70 - 199 mg/dL [facility] Blood 09/09/2021 8:10 AM CDT 09/09/2021 8:10 AM CDT Anaid Kruse MD LAB POCT ORDERABLES - DEVICE Final Result Performing Organization Address [facility] de Phone Number [place] [id number] * (ABNORMAL) eGFR (09/09/2021 3:10 AM CDT) eGFR 85(L) 90 - 130 mL/min/1.7 3 m2 [facility] Comment: Interpretive Data Reference Interval Normal ?>/= 90 mL/min/1.73m2 Mildly decreased* ? 60 - 89 mL/min/1.73m2 Mildly to moderately decreased ?45 - 59 mL/min/1.73m2 Moderately to severely decreased ??30 - 44 mL/min/1.73m2 Severely decreased ?15 - 29 mL/min/1.73m2 Kidney Failure ?< 15 ??mL/min/1.73m2 *Relative to young adult level Estimated glomerular filtration rate is determined by the CKD-EPI equation recommended by the National Kidney Foundation (KDIGO 2012 Clinical Practice Guideline for the Evaluation and Management of Chronic Kidney Disease. Kidney Intnl Suppl Nov 2012;3:1). The CKD-EPI equation should not be used for patients with unstable renal function and has not been validated in children and those over 70. Current interpretive data was last reviewed 2020 Blood 09/09/2021 3:10 AM CDT 09/09/2021 3:44 AM CDT Anaid Kruse MD LAB BLOOD ORDERABLES Final Result [facility] Department [place] [address] * (ABNORMAL) Comprehensive metabolic panel (09/09/2021 3:10 AM CDT) Pathologist [facility] Sodium 137 135 - 145 mmol/L [facility] Potassium, pl 3.7 3.3 - 4.9 mmol/L [facility] Chloride 97 97 - 110 mmol/L [facility] CO2 30 22 - 32 mmol/L [facility] Anion gap 10 2 - 15 mmol/L [facility] BUN 23 8 - 25 mg/dL [facility] Creatinine 1.00 0.80 - 1.30 mg/dL [facility] Glucose 159 70 - 199 mg/dL [facility] Comment: Interpretive Data Fasting glucose >/= [...] interpretive data was last revised 2017. Calcium 8.9 8.5 - 10.3 mg/dL [facility] Bilirubin, total 1.9(H) 0.1 - 1.2 mg/dL [facility] Protein, pl 6.4(L) 6.5 - 8.5 g/dL [facility] Albumin 3.2(L) 3.5 - 5.0 g/dL [facility] Alk phos 303(H) 40 - 130 Units/L [facility] ALT 1,057(H) 7 - 55 Units/L [facility] AST 98(H) 10 - 50 Units/L [facility] Blood 09/09/2021 3:10 AM CDT 09/09/2021 3:22 AM CDT us Anaid Kruse MD LAB BLOOD ORDERABLES Final Result Performing Organization Address City/[facility] Co de Phone Number [facility] Department [place] [address] * (ABNORMAL) Phosphorus (09/09/2021 3:10 AM CDT) Phosphorus, pl 0.9(L) 2.3 - 4.5 mg/dL [facility] Blood 09/09/2021 3:10 AM CDT 09/09/2021 3:22 AM CDT Anaid Kruse MD LAB BLOOD ORDERABLES Final Result [facility] Department [place] [address] * Magnesium (09/09/2021 3:10 AM CDT) Magnesium 1.5 1.4 - 2.5 mg/dL [facility] Blood 09/09/2021 3:10 AM CDT 09/09/2021 3:22 AM CDT us Anaid Kruse MD LAB BLOOD ORDERABLES Final Result [facility] [place] [address] * Lipase (09/09/2021 3:10 AM CDT) [facility] Lipase 95 10 - 99 Units/L [facility] Blood 09/09/2021 3:10 AM CDT 09/09/2021 3:22 AM CDT Anaid Kruse MD LAB BLOOD ORDERABLES Final Result Performing Organization Address [facility] Co de Phone Number [facility] [place] [address] * (ABNORMAL) Manual Differential (09/09/2021 12:35 AM CDT) [facility] Differential Manual [facility] Cells Counted 114 [facility] Neutrophil abs 14.8(H) 1.7 - 6.5 K/cumm [facility] Imm gran abs 0.0 0.0 - 0.1 K/cumm [facility] Lymphocyte abs 1.0 0.8 - 3.3 K/cumm [facility] Monocyte abs 0.3 0.2 - 0.8 K/cumm [facility] Eosinophil abs 0.2 0.0 - 0.5 K/cumm [facility] Neutrophil pct 91.2 % [facility] Comment: Interpretive Data Percent cell count reference ranges are not reported, since discordance with absolute values may lead to misinterpretation of CBC data. Current Interpretive Data was last revised on 2018. Lymphocyte pct 6.1 % [facility] Comment: Interpretive Data Percent cell count reference ranges are not reported, since discordance with absolute values may lead to misinterpretation of CBC data. Current Interpretive Data was last revised on 2018. Monocyte pct 1.8 % [facility] Comment: Interpretive Data Percent cell count reference ranges are not reported, since discordance with absolute values may lead to misinterpretation of CBC data. Current Interpretive Data was last revised on 2018. Eosinophil pct 0.9 % [facility] Comment: Interpretive Data Percent cell count reference ranges are not reported, since discordance with absolute values may lead to misinterpretation of CBC data. Current Interpretive Data was last revised on 2018. RBC morphology Present(A) [facility] Anisocytosis Moderate(A ) [facility] Poikilocytosis Moderate(A ) [facility] Macrocytes 8-15/HPF(A ) [facility] Platelet estimate Decreased( A) [facility] Blood 09/09/2021 12:3 5 AM CDT 09/09/2021 12:53 AM CDT us eJrry Carpenter MD LAB BLOOD ORDERABLES Edited Resu lt - Final [facility] Department [place] [address] * (ABNORMAL) CBC without differential (09/09/2021 12:35 AM CDT) WBC 16.2(H) 3.8 - 9.9 K/cumm [facility] Hgb 12.2(L) 13.0 - 17.5 g/dL [facility] Hct 33.7(L) 38.9 - 50.3 % [facility] Plt 122(L) 150 - 400 K/cumm [facility] MPV 14.0(H) 9.1 - 12.3 fL [facility] RBC 3.40(L) 4.30 - 5.80 M/cumm [facility] MCV 99.1(H) 81.3 - 96.4 fL [facility] MCH 35.9(H) 27.1 - 33.3 pg [facility] MCHC 36.2(H) 32.3 - 35.7 g/dL [facility] RDW CV 16.7(H) 11.1 - 14.9 % [facility] RDW SD 57.6(H) 35.7 - 48.1 fL [facility] NRBC abs 0.67(H) 0.00 - 0.01 K/cumm [facility] Blood 09/09/2021 12:3 5 AM CDT 09/09/2021 12:53 AM CDT Jerry Carpenter MD LAB BLOOD ORDERABLES Final Resul t Performing Organization Address [facility] Co de Phone Number [facility] [place] [address] * POCT glucose (09/08/2021 9:24 PM CDT) Glucose, POC 150 70 - 199 mg/dL [facility] Blood 09/08/2021 9:24 PM CDT 09/08/2021 9:24 PM CDT Anaid Kruse MD LAB POCT ORDERABLES - DEVICE Final Result Performing Organization Address [facility] Co de Phone Number [facility] [place] [address] * POCT glucose (09/08/2021 5:56 PM CDT) Glucose, POC 143 70 - 199 mg/dL [facility] Blood 09/08/2021 5:56 PM CDT 09/08/2021 5:56 PM CDT Anaid Kruse MD LAB POCT ORDERABLES - DEVICE Final Result Performing Organization Address [facility] Co de Phone Number [facility] [place] [address] * POCT glucose (09/08/2021 12:30 PM CDT) Glucose, POC 162 70 - 199 mg/dL [facility] Blood 09/08/2021 12:3 0 PM CDT 09/08/2021 12:30 PM CDT Anaid Kruse MD LAB POCT ORDERABLES - DEVICE Final Result Performing Organization Address [facility] Co de Phone Number [facility] Department [place] [address] * POCT glucose (09/08/2021 8:58 AM CDT) Glucose, POC 109 70 - 199 mg/dL [facility] Blood 09/08/2021 8:58 AM CDT 09/08/2021 8:58 AM CDT Anaid Kruse MD LAB POCT ORDERABLES - DEVICE Final Result Performing Organization Address [facility] de Phone Number [facility] Department [place] [address] * eGFR (09/08/2021 4:47 AM CDT) eGFR >90 90 - 130 mL/min/1.7 3 m2 [facility] Comment: Interpretive Data Reference Interval Normal ?>/= 90 mL/min/1.73m2 Mildly decreased* ? 60 - 89 mL/min/1.73m2 Mildly to moderately decreased ?45 - 59 mL/min/1.73m2 Moderately to severely decreased ??30 - 44 mL/min/1.73m2 Severely decreased ?15 - 29 mL/min/1.73m2 Kidney Failure ?< 15 ??mL/min/1.73m2 *Relative to young adult level Estimated glomerular filtration rate is determined by the CKD-EPI equation recommended by the National Kidney Foundation (KDIGO 2012 Clinical Practice Guideline for the Evaluation and Management of Chronic Kidney Disease. Kidney Intnl Suppl Nov 2012;3:1). The CKD-EPI equation should not be used for patients with unstable renal function and has not been validated in children and those over 70. Current interpretive data was last reviewed 2020 Blood 09/08/2021 4:47 AM CDT 09/08/2021 5:17 AM CDT us Jerry Carpenter MD LAB BLOOD ORDERABLES Final Resul t [facility] Department [place] [address] * (ABNORMAL) Manual Differential (09/08/2021 4:47 AM CDT) Differential Manual [facility] Cells Counted 114 [facility] Neutrophil abs 14.1(H) 1.7 - 6.5 K/cumm [facility] Imm gran abs 0.0 0.0 - 0.1 K/cumm [facility] Lymphocyte abs 1.4 0.8 - 3.3 K/cumm [facility] Monocyte abs 0.1(L) 0.2 - 0.8 K/cumm [facility] Eosinophil abs 0.3 0.0 - 0.5 K/cumm [facility] Neutrophil pct 88.5 % [facility] Comment: Interpretive Data Percent cell count reference ranges are not reported, since discordance with absolute values may lead to misinterpretation of CBC data. Current Interpretive Data was last revised on 2018. Lymphocyte pct 8.8 % [facility] Comment: Interpretive Data Percent cell count reference ranges are not reported, since discordance with absolute values may lead to misinterpretation of CBC data. Current Interpretive Data was last revised on 2018. Monocyte pct 0.9 % [facility] Comment: Interpretive Data Percent cell count reference ranges are not reported, since discordance with absolute values may lead to misinterpretation of CBC data. Current Interpretive Data was last revised on 2018. Eosinophil pct 1.8 % [facility] Comment: Interpretive Data Percent cell count reference ranges are not reported, since discordance with absolute values may lead to misinterpretation of CBC data. Current Interpretive Data was last revised on 2018. RBC morphology Present(A) [facility] Polychromasia 3-7/HPF(A) [facility] Anisocytosis Marked(A) [facility] Poikilocytosis Moderate(A ) [facility] Macrocytes > 15/HPF(A) [facility] Schistocytes 1-2/HPF(A) [facility] Target cells 8-15/HPF(A ) [facility] Platelet estimate Decreased( A) [facility] Blood 09/08/2021 4:47 AM CDT 09/08/2021 5:17 AM CDT us Jerry Carpenter MD LAB BLOOD ORDERABLES Edited Resu lt - Final [facility] Department [place] [address] * (ABNORMAL) CBC without differential (09/08/2021 4:47 AM CDT) WBC 15.9(H) 3.8 - 9.9 K/cumm [facility] Hgb 11.1(L) 13.0 - 17.5 g/dL [facility] Hct 31.2(L) 38.9 - 50.3 % [facility] Plt 126(L) 150 - 400 K/cumm [facility] MPV 11.5 9.1 - 12.3 fL [facility] RBC 3.21(L) 4.30 - 5.80 M/cumm [facility] MCV 97.2(H) 81.3 - 96.4 fL [facility] MCH 34.6(H) 27.1 - 33.3 pg [facility] MCHC 35.6 32.3 - 35.7 g/dL [facility] RDW CV 15.0(H) 11.1 - 14.9 % [facility] RDW SD 53.4(H) 35.7 - 48.1 fL [facility] NRBC abs 0.42(H) 0.00 - 0.01 K/cumm [facility] Blood 09/08/2021 4:47 AM CDT 09/08/2021 5:17 AM CDT us Jerry Carpenter MD LAB BLOOD ORDERABLES Final Resul t Performing Organization Address [facility] Co de Phone Number [facility] [place] [address] * (ABNORMAL) Lipase (09/08/2021 4:47 AM CDT) Lipase 313(H) 10 - 99 Units/L [facility] Blood 09/08/2021 4:47 AM CDT 09/08/2021 5:17 AM CDT us Jerry Carpenter MD LAB BLOOD ORDERABLES Final Resul t Performing Organization Address [facility] de Phone Number [facility] Department [place] [address] * (ABNORMAL) Comprehensive metabolic panel (09/08/2021 4:47 AM CDT) Pathologist [facility] Sodium 141 135 - 145 mmol/L [facility] Potassium, pl 4.1 3.3 - 4.9 mmol/L [facility] Comment:Hemolyzed; Potassium value may be falsely elevated by as much as 0.3-0.5 mmol/L. Suggest redraw and reanalysis. Chloride 105 97 - 110 mmol/L [facility] CO2 29 22 - 32 mmol/L [facility] Anion gap 7 2 - 15 mmol/L [facility] BUN 29(H) 8 - 25 mg/dL [facility] Creatinine 0.87 0.80 - 1.30 mg/dL [facility] Glucose 156 70 - 199 mg/dL [facility] Comment: Interpretive Data Fasting glucose >/= [...] interpretive data was last revised 2017. Calcium 8.4(L) 8.5 - 10.3 mg/dL [facility] Bilirubin, total 2.4(H) 0.1 - 1.2 mg/dL [facility] Protein, pl 5.3(L) 6.5 - 8.5 g/dL [facility] Albumin 2.7(L) 3.5 - 5.0 g/dL [facility] Alk phos 179(H) 40 - 130 Units/L [facility] ALT 1,335(H) 7 - 55 Units/L [facility] AST 160(H) 10 - 50 Units/L [facility] Comment:Hemolyzed; result ma y be falsely elevated Blood 09/08/2021 4:47 AM CDT 09/08/2021 5:17 AM CDT Jerry Carpenter MD LAB BLOOD ORDERABLES Final Resul t [facility] Department [place] [address] * (ABNORMAL) Phosphorus (09/08/2021 4:47 AM CDT) Phosphorus, pl 1.2(L) 2.3 - 4.5 mg/dL [facility] Blood 09/08/2021 4:47 AM CDT 09/08/2021 5:17 AM CDT us Jerry Carpenter MD LAB BLOOD ORDERABLES Final Resul t [facility] Department [place] [address] * Magnesium (09/08/2021 4:47 AM CDT) Magnesium 1.7 1.4 - 2.5 mg/dL [facility] Blood 09/08/2021 4:47 AM CDT 09/08/2021 5:17 AM CDT us Jerry Carpenter MD LAB BLOOD ORDERABLES Final Resul t Performing Organization Address [facility] de Phone Number [facility] [place] [address] * (ABNORMAL) Urinalysis, microscopic only (09/08/2021 2:15 AM CDT) WBC, ur 0-5 0 - 5 /HPF [facility] RBC, ur 3-5(A) 0 - 2 /HPF [facility] Mucous, ur Present(A) [facility] Hyaline casts, ur 1-5 0 - 10 /LPF [facility] Culture Reflex Comment Reflex conditions for urine culture (WBC >10) not met. [facility] Urine 09/08/2021 2:15 AM CDT 09/08/2021 2:28 AM CDT us Jerry Carpenter MD LAB URINE ORDERABLES Final Resul t Performing Organization Address [facility] de Phone Number [facility] [place] [address] * (ABNORMAL) Urinalysis reflex to microscopic and culture Urine (09/08/2021 2:15 AM CDT) Color, ur Yellow Yellow [facility] Clarity, ur Clear Clear [facility] Specific gravity, ur >1.042(H) 1.003 - 1.030 [facility] pH, urine 6 [facility] Protein, ur ql 1+(A) Negative [facility] Glucose, ur ql 3+(A) Negative [facility] Ketones, ur 1+(A) Negative [facility] Bilirubin, ur Negative Negative [facility] Blood[facility] ur Negative Negative [facility] Urobilinogen, ur 2.0(A) <2.0 mg/dL [facility] Nitrite, ur Negative Negative [facility] Leukocyte esterase, ur Negative Negative [facility] UA reflex comment Reflex to microscopic UA will be performed. [facility] Urine 09/08/2021 2:15 AM CDT 09/08/2021 2:15 AM CDT Narrative [facility] - 09/08/2021 3:35 AM CDT Obtain with INITIAL infection work up. Urine pH is affected by diet, medications, systemic acid-base disturbances, and renal tubular function. ??pH may affect urinary stone formation. ??For example, urine pH below 6.0 may help reduce the tendency for calcium phosphate stones and pH greater than 6.0 may reduce the tendency for uric acid stone formation. Source: [employer]. Last revised 11-28-2017 us Jerry Carpenter MD LAB MICROBIOLOGY - GENERAL ORDER SUBHA Final Result [facility] Department [place] [address] * (ABNORMAL) eGFR (09/07/2021 10:06 PM CDT) eGFR 87(L) 90 - 130 mL/min/1.7 3 m2 [facility] Comment: Interpretive Data Reference Interval Normal ?>/= 90 mL/min/1.73m2 Mildly decreased* ? 60 - 89 mL/min/1.73m2 Mildly to moderately decreased ?45 - 59 mL/min/1.73m2 Moderately to severely decreased ??30 - 44 mL/min/1.73m2 Severely decreased ?15 - 29 mL/min/1.73m2 Kidney Failure ?< 15 ??mL/min/1.73m2 *Relative to young adult level Estimated glomerular filtration rate is determined by the CKD-EPI equation recommended by the National Kidney Foundation (KDIGO 2012 Clinical Practice Guideline for the Evaluation and Management of Chronic Kidney Disease. Kidney Intnl Suppl Nov 2012;3:1). The CKD-EPI equation should not be used for patients with unstable renal function and has not been validated in children and those over 70. Current interpretive data was last reviewed 2020 Blood 09/07/2021 10:0 6 PM CDT 09/07/2021 10:14 PM CDT us Jerry Carpenter MD LAB BLOOD ORDERABLES Final Resul t [facility] Department [place] [address] * (ABNORMAL) Manual Differential (09/07/2021 10:06 PM CDT) Differential Manual [facility] Cells Counted 116 [facility] Neutrophil abs 14.8(H) 1.7 - 6.5 K/cumm [facility] Imm gran abs 0.0 0.0 - 0.1 K/cumm [facility] Lymphocyte abs 0.6(L) 0.8 - 3.3 K/cumm [facility] Monocyte abs 1.0(H) 0.2 - 0.8 K/cumm [facility] Eosinophil abs 0.2 0.0 - 0.5 K/cumm [facility] Neutrophil pct 89.7 % [facility] Comment: Interpretive Data Percent cell count reference ranges are not reported, since discordance with absolute values may lead to misinterpretation of CBC data. Current Interpretive Data was last revised on 2018. Lymphocyte pct 3.4 % [facility] Comment: Interpretive Data Percent cell count reference ranges are not reported, since discordance with absolute values may lead to misinterpretation of CBC data. Current Interpretive Data was last revised on 2018. Monocyte pct 6.0 % [facility] Comment: Interpretive Data Percent cell count reference ranges are not reported, since discordance with absolute values may lead to misinterpretation of CBC data. Current Interpretive Data was last revised on 2018. Eosinophil pct 0.9 % [facility] Comment: Interpretive Data Percent cell count reference ranges are not reported, since discordance with absolute values may lead to misinterpretation of CBC data. Current Interpretive Data was last revised on 2018. RBC morphology Present(A) [facility] Polychromasia 3-7/HPF(A) [facility] Anisocytosis Marked(A) [facility] Poikilocytosis Slight(A) [facility] Macrocytes > 15/HPF(A) [facility] Target cells 3-7/HPF(A) [facility] Echinocytes 3-7/HPF(A) [facility] Platelet estimate Adequate [facility] Blood 09/07/2021 10:0 6 PM CDT 09/07/2021 10:14 PM CDT us Jerry Carpenter MD LAB BLOOD ORDERABLES Final Resul t [facility] Department [place] [address] * (ABNORMAL) CBC without differential (09/07/2021 10:06 PM CDT) WBC 16.5(H) 3.8 - 9.9 K/cumm [facility] Hgb 13.9 13.0 - 17.5 g/dL [facility] Hct 40.7 38.9 - 50.3 % [facility] Plt 173 150 - 400 K/cumm [facility] MPV 11.1 9.1 - 12.3 fL [facility] RBC 4.18(L) 4.30 - 5.80 M/cumm [facility] MCV 97.4(H) 81.3 - 96.4 fL [facility] MCH 33.3 27.1 - 33.3 pg [facility] MCHC 34.2 32.3 - 35.7 g/dL [facility] RDW CV 15.0(H) 11.1 - 14.9 % [facility] RDW SD 53.8(H) 35.7 - 48.1 fL [facility] NRBC abs 0.33(H) 0.00 - 0.01 K/cumm [facility] Blood 09/07/2021 10:0 6 PM CDT 09/07/2021 10:14 PM CDT Result Amelia Carpenter MD LAB BLOOD ORDERABLES Final Resul t Performing Organization Address [facility] de Phone Number [facility] [place] [address] * (ABNORMAL) Fibrinogen (09/07/2021 10:06 PM CDT) Fibrinogen 499(H) 170 - 400 mg/dL [facility] Blood 09/07/2021 10:0 6 PM CDT 09/07/2021 10:14 PM CDT Result Amelia Carpenter MD LAB BLOOD ORDERABLES Final Resul t Performing Organization Address [facility] de Phone Number [facility] [place] [address] * aPTT (09/07/2021 10:06 PM CDT) aPTT 29 27 - 37 sec [facility] Comment: Interpretive Data Therapeutic heparin range: 60.0 - 94.0 seconds. Based on correlation with therapeutic heparin activity range of 0.3-0.7 Units/mL. Current interpretive data was last revised on 2021. Blood 09/07/2021 10:0 6 PM CDT 09/07/2021 10:14 PM CDT Result Amelia Carpenter MD LAB BLOOD ORDERABLES Final Resul t Performing Organization Address [facility] de Phone Number [facility] [place] [address] * Protime-INR (09/07/2021 10:06 PM CDT) PT 13.1 9.5 - 13.6 sec [facility] INR 1.2 0.9 - 1.2 [facility] Comment: Interpretive data Oral anticoagulant therapeutic ranges: Venous thromboembolism prophylaxis or treatment: 2.0-3.0 CARDIOLOGY Standard range: 2.0-3.0 High-intensity range: 2.5-3.5 Refer to indication-specific guidelines for appropriate target ranges for prosthetic heart valve replacement. Current interpretive data was last revised on 2019. Blood 09/07/2021 10:0 6 PM CDT 09/07/2021 10:14 PM CDT us Jerry Carpenter MD LAB BLOOD ORDERABLES Final Resul t Performing Organization Address [facility] [facility] Co de Phone Number [facility] [place] [address] * Uric acid (09/07/2021 10:06 PM CDT) Uric acid 5.3 3.0 - 8.0 mg/dL [facility] Blood 09/07/2021 10:0 6 PM CDT 09/07/2021 10:14 PM CDT us Jerry Carpenter MD LAB BLOOD ORDERABLES Final Resul t Performing Organization Address [facility] Co de Phone Number [facility] [place] [address] * (ABNORMAL) Lactate dehydrogenase (LD) (09/07/2021 10:06 PM CDT) Lactate dehydrogenase (LDH) 294(H) 100 - 250 Units/L [facility] Blood 09/07/2021 10:0 6 PM CDT 09/07/2021 10:14 PM CDT us Jerry Carpenter MD LAB BLOOD ORDERABLES Final Resul t Performing Organization Address City/[facility]/ZIP Co de Phone Number [facility] [place] [address] * (ABNORMAL) Phosphorus (09/07/2021 10:06 PM CDT) Pathologist [facility] Phosphorus, pl 1.3(L) 2.3 - 4.5 mg/dL [facility] Blood 09/07/2021 10:0 6 PM CDT 09/07/2021 10:14 PM CDT Jerry Carpenter MD LAB BLOOD ORDERABLES Final Resul t [facility] Department [place] [address] * Magnesium (09/07/2021 10:06 PM CDT) [facility] Magnesium 1.7 1.4 - 2.5 mg/dL [facility] Blood 09/07/2021 10:0 6 PM CDT 09/07/2021 10:14 PM CDT Jerry Carpenter MD LAB BLOOD ORDERABLES Final Resul t Performing Organization Address City/[facility] Co de Phone Number [facility] Department [place] [address] * (ABNORMAL) Comprehensive metabolic panel (09/07/2021 10:06 PM CDT) [facility] Sodium 144 135 - 145 mmol/L [facility] Potassium, pl 4.2 3.3 - 4.9 mmol/L [facility] Chloride 100 97 - 110 mmol/L [facility] CO2 33(H) 22 - 32 mmol/L [facility] Anion gap 11 2 - 15 mmol/L [facility] BUN 28(H) 8 - 25 mg/dL [facility] Creatinine 0.98 0.80 - 1.30 mg/dL [facility] Glucose 244(H) 70 - 199 mg/dL [facility] Comment: Interpretive Data Fasting glucose >/= [...] interpretive data was last revised 2017. Calcium 9.2 8.5 - 10.3 mg/dL [facility] Bilirubin, total 3.3(H) 0.1 - 1.2 mg/dL [facility] Protein, pl 6.7 6.5 - 8.5 g/dL [facility] Albumin 3.5 3.5 - 5.0 g/dL [facility] Alk phos 214(H) 40 - 130 Units/L [facility] ALT 2,063(H) 7 - 55 Units/L [facility] AST 263(H) 10 - 50 Units/L [facility] Blood 09/07/2021 10:0 6 PM CDT 09/07/2021 10:14 PM CDT us Jerry Carpenter MD LAB BLOOD ORDERABLES Final Resul t [facility] Department [place] [address] * ECG 12 lead (09/07/2021 10:03 PM CDT) Pathologist [facility] Ventricular Rate EKG/Min 72 BPM [facility] Atrial Rate 72 BPM [facility] MN-Interval (MSEC) 136 ms [facility] QRS-Interval (MSEC) 86 ms [facility] QT-Interval (MSEC) 372 ms [facility] QTc 407 ms [facility] R Emmons 82 degrees [facility] T Emmons 73 degrees [facility] Diagnosis Normal sinus rhythm Nonspecific T wave abnormality Abnormal ECG When compared with ECG of 17-AUG-2021 13:08, Nonspecific T wave abnormality now evident in Inferior leads Nonspecific T wave abnormality, worse in Lateral leads Confirmed by NGOZI MILES M.D ([id number]) on 09/08/2021 1:32:25 PM [facility] 09/07/2021 10:0 3 PM CDT 09/08/2021 1:32 PM CDT us Jerry Carpenter MD ECG ORDERABLES Final Result Performing Organization Address City/[facility]/ZIP Co de Phone Number [facility] * (ABNORMAL) POCT glucose (09/07/2021 9:24 PM CDT) [facility] Glucose, POC 228(H) 70 - 199 mg/dL [facility] Blood 09/07/2021 9:24 PM CDT 09/07/2021 9:24 PM CDT Anaid Kruse MD LAB POCT ORDERABLES - DEVICE Final Result Performing Organization Address [facility] Co de Phone Number [facility] Department [place] [address] * X-ray chest 1 view (Portable) (09/07/2021 9:10 PM CDT) Anatomical Region Laterality Modality Body, Chest N/A Computed Radiogr aphy 09/08/2021 7:13 AM CDT Impressions 09/08/2021 7:13 AM CDT Heart size and mediastinal contours are normal. Hyperinflation and diffuse emphysema again seen. No pleural effusion or pneumothorax. Electronically signed by: Kirt Fletcher M.D. Narrative 09/08/2021 7:13 AM CDT EXAMINATION: 1 view chest radiograph COMPARISON: 08/17/2021 Procedure Note Kirt Fletcher MD - 09/08/2021 EXAMINATION: 1 view chest radiograph COMPARISON: 08/17/2021 IMPRESSION: Heart size and mediastinal contours are normal. Hyperinflation and diffuse emphysema again seen. No pleural effusion or pneumothorax. Electronically signed by: Kirt Fletcher M.D. Jerry Carpenter MD IMG XR PROCEDURES Final Result * (ABNORMAL) POCT glucose (09/07/2021 6:55 PM CDT) [facility] Glucose, POC 210(H) 70 - 199 mg/dL [facility] Blood 09/07/2021 6:55 PM CDT 09/07/2021 6:55 PM CDT Tay Charlton MD LAB POCT ORDERABLES - JULIO CE Final Result Performing Organization Address City/[facility] Co de Phone Number [facility] Department [place] [address] * Prepare RBC: 1 Units (09/07/2021 5:36 PM CDT) [facility] Product code [id number] [facility] Unit Number [id number] [id number] [facility] Product Blood Type APOS [facility] Dispense Status RETURNED [facility] Blood 09/07/2021 5:36 PM CDT 09/07/2021 5:39 PM CDT Narrative [facility] - 09/08/2021 9:07 AM CDT Other indication->3g hgb drop today, no source Are special requirements needed? (all products are leukoreduced)->No Date required:-[id number] LRRBC # of [id number] Reasons:-Other (specify)} us Michael Parham MD BLOOD BANK PRODUCT ORDERA BLES Final Result Performing Organization Address [facility] Co de Phone Number [facility] Department [place] [address] * POC Blood Gas and Chemistries, Arterial - (09/07/2021 5:19 PM CDT) [facility] Lactate, POC 2.0 0.7 - 2.2 mmol/L [facility] Blood 09/07/2021 5:19 PM CDT 09/07/2021 5:19 PM CDT Tay Charlton MD LAB POCT ORDERABLES - JULIO CE Final Result Performing Organization Address [facility] Co de Phone Number [facility] [place] [address] * (ABNORMAL) POCT glucose (09/07/2021 4:51 PM CDT) Glucose, POC 212(H) 70 - 199 mg/dL [facility] Glucose comment 1 Doctor Notified [facility] Blood 09/07/2021 4:51 PM CDT 09/07/2021 4:51 PM CDT Tay Charlton MD LAB POCT ORDERABLES - JULIO CE Final Result Performing Organization Address [facility] de Phone Number [facility] [place] [address] * eGFR (09/07/2021 4:49 PM CDT) eGFR >90 90 - 130 mL/min/1.7 3 m2 [facility] Comment: Interpretive Data Reference Interval Normal ?>/= 90 mL/min/1.73m2 Mildly decreased* ? 60 - 89 mL/min/1.73m2 Mildly to moderately decreased ?45 - 59 mL/min/1.73m2 Moderately to severely decreased ??30 - 44 mL/min/1.73m2 Severely decreased ?15 - 29 mL/min/1.73m2 Kidney Failure ?< 15 ??mL/min/1.73m2 *Relative to young adult level Estimated glomerular filtration rate is determined by the CKD-EPI equation recommended by the National Kidney Foundation (KDIGO 2012 Clinical Practice Guideline for the Evaluation and Management of Chronic Kidney Disease. Kidney Intnl Suppl Nov 2012;3:1). The CKD-EPI equation should not be used for patients with unstable renal function and has not been validated in children and those over 70. Current interpretive data was last reviewed 2020 Blood 09/07/2021 4:49 PM CDT 09/07/2021 5:09 PM CDT Michael Parham MD LAB BLOOD ORDERABLES Pilar armas Result [facility] Department [place] [address] * (ABNORMAL) Differential, auto (09/07/2021 4:49 PM CDT) Neutrophil abs 14.5(H) 1.7 - 6.5 K/cumm [facility] Imm gran abs 0.2(H) 0.0 - 0.1 K/cumm [facility] Lymphocyte abs 1.6 0.8 - 3.3 K/cumm [facility] Monocyte abs 0.6 0.2 - 0.8 K/cumm [facility] Eosinophil abs 0.0 0.0 - 0.5 K/cumm [facility] Basophil abs 0.1 0.0 - 0.1 K/cumm [facility] Neutrophil pct 85.1 % [facility] Comment: Interpretive Data Percent cell count reference ranges are not reported, since discordance with absolute values may lead to misinterpretation of CBC data. Current Interpretive Data was last revised on 2018. Imm gran pct 1.4 % [facility] Comment: Interpretive Data Percent cell count reference ranges are not reported, since discordance with absolute values may lead to misinterpretation of CBC data. Current Interpretive Data was last revised on 2018. Lymphocyte pct 9.5 % [facility] Comment: Interpretive Data Percent cell count reference ranges are not reported, since discordance with absolute values may lead to misinterpretation of CBC data. Current Interpretive Data was last revised on 2018. Monocyte pct 3.5 % [facility] Comment: Interpretive Data Percent cell count reference ranges are not reported, since discordance with absolute values may lead to misinterpretation of CBC data. Current Interpretive Data was last revised on 2018. Eosinophil pct 0.1 % [facility] Comment: Interpretive Data Percent cell count reference ranges are not reported, since discordance with absolute values may lead to misinterpretation of CBC data. Current Interpretive Data was last revised on 2018. Basophil pct 0.4 % [facility] Comment: Interpretive Data Percent cell count reference ranges are not reported, since discordance with absolute values may lead to misinterpretation of CBC data. Current Interpretive Data was last revised on 2018. Blood 09/07/2021 4:49 PM CDT 09/07/2021 5:08 PM CDT us Michael Parham MD LAB BLOOD ORDERABLES Pilar armas Result [facility] Department [place] [address] * (ABNORMAL) Comprehensive metabolic panel (09/07/2021 4:49 PM CDT) Sodium 142 135 - 145 mmol/L [facility] Potassium, pl 3.9 3.3 - 4.9 mmol/L [facility] Chloride 103 97 - 110 mmol/L [facility] CO2 30 22 - 32 mmol/L [facility] Anion gap 9 2 - 15 mmol/L [facility] BUN 29(H) 8 - 25 mg/dL [facility] Creatinine 0.86 0.80 - 1.30 mg/dL [facility] Glucose 242(H) 70 - 199 mg/dL [facility] Comment: Interpretive Data Fasting glucose >/= [...] 2017. Calcium 9.1 8.5 - 10.3 mg/dL [facility] Bilirubin, total 3.1(H) 0.1 - 1.2 mg/dL [facility] Protein, pl 6.4(L) 6.5 - 8.5 g/dL [facility] Albumin 3.3(L) 3.5 - 5.0 g/dL [facility] Alk phos 190(H) 40 - 130 Units/L [facility] ALT 2,123(H) 7 - 55 Units/L [facility] AST 352(H) 10 - 50 Units/L [facility] Blood 09/07/2021 4:49 PM CDT 09/07/2021 5:09 PM CDT us Michael Parham MD LAB BLOOD ORDERABLES Pilar armas Result [facility] Department [place] [address] * (ABNORMAL) CBC with auto differential (09/07/2021 4:49 PM CDT) WBC 17.0(H) 3.8 - 9.9 K/cumm [facility] Hgb 13.5 13.0 - 17.5 g/dL [facility] Hct 38.8(L) 38.9 - 50.3 % [facility] Plt 173 150 - 400 K/cumm [facility] MPV 10.8 9.1 - 12.3 fL [facility] RBC 3.99(L) 4.30 - 5.80 M/cumm [facility] MCV 97.2(H) 81.3 - 96.4 fL [facility] MCH 33.8(H) 27.1 - 33.3 pg [facility] MCHC 34.8 32.3 - 35.7 g/dL [facility] RDW CV 14.8 11.1 - 14.9 % [facility] RDW SD 52.9(H) 35.7 - 48.1 fL [facility] NRBC abs 0.24(H) 0.00 - 0.01 K/cumm [facility] Blood 09/07/2021 4:49 PM CDT 09/07/2021 5:08 PM CDT us Michael Parham MD LAB BLOOD ORDERABLES Pilar l Result Performing Organization Address [facility] Co de Phone Number [facility] Department [place] [address] * FL ERCP Biliary Duct (09/07/2021 2:34 PM CDT) Narrative [facility] - 09/07/2021 2:34 PM CDT The images from this study are not interpreted by Radiology. ??Please refer to the physician's procedure / OR operative note. Tay Charlton MD IMG FLUOROSCOPY PROCEDURES Final Result Performing Organization Address [facility] Co de Phone Number [facility] * (ABNORMAL) POCT glucose (09/07/2021 1:34 PM CDT) Glucose, POC 216(H) 70 - 199 mg/dL [facility] Blood 09/07/2021 1:34 PM CDT 09/07/2021 1:34 PM CDT Tay Charlton MD LAB POCT ORDERABLES - JULIO CE Final Result Performing Organization Address [facility] Co de Phone Number [facility] Department [place] [address] * ERCP (09/07/2021 1:04 PM CDT) Anatomical Region Laterality Modality Other Narrative Procedure Note Tay Charlton MD - 09/07/2021 1:04 PM CDT [facility] Patient Name: Brady Jones Procedure Date: 09/07/2021 1:04 PM Date of : 1965 Admit Type: Outpatient Age: 55 Gender: Male Attending MD: Tay Charlton M.D. Room: [facility] ENDOSCOPY ROOM 2 Note Status: Finalized Procedure: ERCP Indications: Common bile duct stone(s), suspected gallstone pancreatitis. Patient presents with abdominal pain, elevated LFTs and elevated lipase. Patient onEliquis. Referring MD: Kirt Lindsay DO Providers: Tay Charlton M.D. Medicines: Monitored Anesthesia Care Complications: No [...] were discussed and informed consentwas obtained. The [id number] Duodenoscope wasintroduced through the mouth, and used to inject contrast into and used to inject contrast into the bile duct and ventral pancreatic duct. The [id number] endoscope was introduced through the and used to inject contrast into. The ERCP was accomplished without difficulty. The patient tolerated the procedure well. Findings: The b2b account executive film was normal. The esophagus was successfully intubated under direct vision without detailed examination of the pharynx,larynx, and associated structures, and upper GI tract. A standard esophagogastroduodenoscopy scope was used for the examination of the upper gastrointestinal tract. The scope was passed under directvision through the upper GI tract. LA Grade D (one or more mucosal breaks involving at least 75% of esophageal circumference) esophagitis withno bleeding was found in the lower third of the esophagus. A standard esophagogastroduodenoscopy scope was used for the examination of the upper gastrointestinal tract. The scope was passed under directvision through the upper GI tract. Hematin (altered blood/vfyzmy-uikvpi-ezbe material) was found in the entire examined stomach. One non-bleeding cratered duodenal ulcer with pigmented material was found in the duodenal bulb and in the second portion of the duodenum. The lesionwas 30 mm in largest dimension. There was one visible vessel noted in the second portion of the duodenum, immediately below the major papilla.The major papilla was normal. On initial attempt to cannulate the bileduct, the ventral pancreatic duct was deeply cannulated with theshort-nosed traction sphincterotome. Contrast was injected. I personallyinterpreted the pancreatic duct images. Ductal flow of contrast was adequate.Image quality was adequate. Contrast extended to the pancreatic duct. The entire opacified area was normal. A 0.035 inch x 260 cm straight Dreamwire was passed into the ventral pancreatic duct. The wire wasleft in place in order to canulate via the double wire technique. A 0.035 inch x 260 cm straight Dreamwire was passed into the biliary tree.The short-nosed traction sphincterotome was passed over the guidewire and the bile duct was then deeply cannulated. Contrast was injected. The intra-hepatic and extra-hepatic biliary duct system was normal. The maximum diameter of ducts was 3 mm. No obvious stones wereidentified. One 7 Fr by 5 cm plastic stent with a single external flap and asingle internal flap was placed into the common bile duct. Bile flowedthrough the stent. The stent was in good position. A sphincterotomy was not performed given recent GI bleeding and due to recent use of Eliquis.One 5 Fr by 9 cm plastic stent with a 3/4 external pigtail was placedinto the ventral pancreatic duct. Clear fluid flowed through the stent.The stent was in good position. The endoscope was withdrawn from thepatient. Impression: - LA Grade D esophagitis with no bleeding. - Hematin (altered blood/yesbki-ziphwq-jypqhraieppn) in the entire stomach. - Non-bleeding duodenal ulcer with pigmentedmaterial. - The cholangiogram was normal. No evidence ofstones on cholangiogram. A plastic biliary stent wasplaced. A sphincterotomy was not performed given recent GI bleeding and Eliquis use. - Normal limited pancreatogram. A protective pancreatic duct stent was placed. Recommendation: - Observe patient's clinical course. - Watch for pancreatitis, bleeding, perforation,and cholangitis. - Admit the patient to [facility] for ongoingcare. - Repeat ERCP for stent removal and biliary sphincterotomy in 4 weeks. - If LFTs do not decrease after stent placement, consider Hepatology consult. - PPI BID x 12 weeks. - H pylori stool Ag. Attending Participation: I personally performed the entire procedure. Electronically signed by Tay Charlton M.D. Tay Charlton M.D. 09/07/2021 2:53:41 PM . Number of Addenda: 0 Note Initiated On: 09/07/2021 1:04 PM Recognized by the [employer] for promoting quality in endoscopy Tay Charlton MD ENDOSCOPY PROCEDURES Final Result * Blood culture Blood (09/07/2021 10:19 AM CDT) Report Final Report: No growth [facility]ULE[facility] SOMMERS Blood 09/07/2021 10:1 9 AM CDT 09/07/2021 10:46 AM CDT Narrative ZULEMA DENT - 09/11/2021 12:01 PM CDT 1. ?Blood cultures are incubated for 4 [...] organism identification may be performed using the [employer] Gram-Positive Blood Culture Assay. This assay detects microbial DNA in positive blood culture broth via hybridization of target DNA to capture oligonucleotides on a microarray. This assay has been cleared by the [place] Food and Drug Administration and its performance characteristics have been verified by the [facility] Microbiology Laboratory. 5. ?For questions about this culture, contact the Microbiology Laboratory at [phone]. Interpretive data was last revised on 2020. Parmjit Pelayo MD LAB MICROBIOLOGY - [facility] AL ORDERABLES Final Result [facility] Department [place] [address] * Blood culture Blood (09/07/2021 10:19 AM CDT) Report Final Report: No growth ZULEMA DENT Blood 09/07/2021 10:1 9 AM CDT 09/07/2021 10:46 AM CDT Narrative [facility] DENT - 09/11/2021 12:01 PM CDT 1. ?Blood cultures are incubated for 4 [...] organism identification may be performed using the [employer] Gram-Positive Blood Culture Assay. This assay detects microbial DNA in positive blood culture broth via hybridization of target DNA to capture oligonucleotides on a microarray. This assay has been cleared by the [place] Food and Drug Administration and its performance characteristics have been verified by the [facility]biology Laboratory. 5. ?For questions about this culture, contact the Microbiology Laboratory at [phone]. Interpretive data was last revised on 2020. Parmjit Pelayo MD LAB MICROBIOLOGY - GENER AL ORDERABLES Final Result [facility] Department [place] [address] * (ABNORMAL) POCT glucose (09/07/2021 9:29 AM CDT) [facility] Glucose, POC 216(H) 70 - 199 mg/dL [facility] Blood 09/07/2021 9:29 AM CDT 09/07/2021 9:29 AM CDT Anaid Kruse MD LAB POCT ORDERABLES - DEVICE Final Result [facility] Department [place] [address] * US RUQ (09/07/2021 8:38 AM CDT) Anatomical Region Laterality Modality Abdomen N/A Ultrasound 09/07/2021 9:10 AM CDT Impressions 09/07/2021 9:14 AM CDT 1. Cholelithiasis and gallbladder sludge without evidence of cholecystitis. 2. Normal liver parenchyma. Dictated by: Neena Higginbotham MD The radiology attending physician has personally reviewed this study, and had reviewed and/or edited this written report and agrees with it. Electronically signed by: Kirt Cali M.D. Narrative 09/07/2021 9:14 AM CDT EXAMINATION: ??LIMITED ABDOMINAL SONOGRAM HISTORY: ??55-year-old male with history of AML status post stem cell transplant currently in remission. 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 ??Currently is 2 days of epigastric abdominal pain. COMPARISON: ??None FINDINGS: ?? Liver: The liver is normal in size. ??The echotexture is normal. ??The echogenicity is normal. There is no surface nodularity. There are focal areas of fatty sparing versus fat deposition around the gallbladder and in the right liver ?? Gallbladder: The gallbladder is normal in size. There are stones and sludge within the gallbladder. There is no gallbladder wall thickening. Bile Duct: There is no intrahepatic bile duct dilatation. The diameter of the common duct is 4 mm in the proximal segment and 3 mm in the mid segment. Right Kidney: There is no hydronephrosis in the visualized portions of the right kidney. Pancreas: The visualized portions of the body of the pancreas are normal. Dr. Neena Higginbotham (vice president and portfolio manager) personally participated in sonographic imaging of this patient. Procedure Note Kirt Cali MD - 09/07/2021 EXAMINATION: LIMITED ABDOMINAL SONOGRAM HISTORY: 55-year-old male with history of AML status post stem cell transplant currently in remission. Complicated by hbvwq-hwdolc-byum disease of the eye and lung. Currently is 2 days of epigastric abdominal pain. COMPARISON: None FINDINGS: Liver: The liver is normal in size. The echotexture is normal. The echogenicity is normal. There is no surface nodularity. There are focal areas of fatty sparing versus fat deposition around the gallbladder and in the right liver Gallbladder: The gallbladder is normal in size. There are stones and sludge within the gallbladder. There is no gallbladder wall thickening. Bile Duct: There is no intrahepatic bile duct dilatation. The diameter of the common duct is 4 mm in the proximal segment and 3 mm in the mid segment. Right Kidney: There is no hydronephrosis in the visualized portions of the right kidney. Pancreas: The visualized portions of the body of the pancreas are normal. Dr. Neena Higginbotham (vice president and portfolio manager) personally participated in sonographic imaging of this patient. IMPRESSION: 1. Cholelithiasis and gallbladder sludge without evidence of cholecystitis. 2. Normal liver parenchyma. Dictated by: Neena Higginbotham MD The radiology attending physician has personally reviewed this study, and had reviewed and/or edited this written report and agrees with it. Electronically signed by: Kirt Cali M.D. Parmjit Pelayo MD IMG US PROCEDURES Final Result * (ABNORMAL) POCT glucose (09/07/2021 5:56 AM CDT) Pathologist [facility] Glucose, POC 287(H) 70 - 199 mg/dL [facility] Blood 09/07/2021 5:56 AM CDT 09/07/2021 5:56 AM CDT Anaid Kruse MD LAB POCT ORDERABLES - DEVICE Final Result [facility] Department of [place] [address] * COVID-19 Coronavirus RNA Nasopharyngeal (09/07/2021 5:51 AM CDT) [facility] COVID-19 RNA Negative Negative [facility] Comment: Interpretive data: Synonyms for this test include: PCR and NAAT . ??This test is performed using the [employer] Xpert Xpress assay. This is a real-time RT-PCR test intended for the qualitative detection of nucleic acid from the SARS-CoV-2. This assay has been reviewed by the FDA for Emergency Use Authorization (EUA). The performance characteristics have been verified by the performing laboratory. Results must be considered in the clinical context and a negative result does not rule out infection. Interpretive data last revised December 22, 2020. First COVID-19 test? No [facility] Employeed in healthcare? No [facility] status? No [facility] Group care resident? No [facility] Hospitalized? No [facility] Is patient in ICU? No [facility] Symptomatic as defined by CDC? No [facility] Nasopharyngeal 09/07/2021 5: 51 AM CDT 09/07/2021 6:23 AM CDT Narrative [facility] - 09/07/2021 7:13 AM CDT What is the reason for testing?->Bed placement or semi-private room us Cruz Shah MD LAB MICROBIOLOGY - GENERA L ORDERABLES Final Result [facility] Department [place] [address] * CT Chest PE (CTA) Abdomen Pelvis W Contrast (09/07/2021 5:43 AM CDT) Anatomical Region Laterality Modality Body N/A Computed Tomogra phy 09/07/2021 6:14 AM CDT Impressions 09/07/2021 9:52 AM CDT 1. Multiple tree-in-bud and nodular opacities are seen throughout the lungs with extensive plugged bronchi compatible with a combination of aspiration and infectious bronchiolitis. 2. No acute abnormality in the abdomen or pelvis. 3. No pulmonary embolism. ADDENDUM - This addendum is being placed on the report for a time dependent finding on a patient who is admitted to the hospital (2B). The esophagus is thick walled, which can be seen in esophagitis. The lung findings are compatible with aspiration and/or infectious bronchiolitis. These findings were communicated to Dr. Pelayo by Dr. Michael Chand at 0910 on . Dictated by: Michael Chand M.D. The radiology attending physician has personally reviewed this study, and had reviewed and/or edited this written report and agrees with it. Electronically signed by: Ranjan Au M.D. Narrative 09/07/2021 9:52 AM CDT EXAMINATION: CT CHEST PE (CTA) ABDOMEN PELVIS W CONTRAST HISTORY: 55-year-old man with leukemia status post stem cell transplant in remission complaining of shortness of breath and abdominal pain. TECHNIQUE: Computed tomographic images were acquired using a chest angiographic protocol optimized for pulmonary embolism. ??Computed tomographic examination of the abdomen and pelvis with intravenous contrast was performed using a standard protocol. ??Contrast enhanced transaxial images were obtained following the intravenous administration of 100 ml of nonionic contrast. ??Multiplanar reformatted images and three-dimensional images were obtained on the 3-D workstation and sent to the PACS archival system. ?? COMPARISON: Chest CT 11/20/2019; CT abdomen and pelvis 02/02/2013 FINDINGS: Chest: A 5 mm subsolid nodule in the right lower lobe with central lucency is seen at the previously seen site of a small nodule (table position -452). There has been interval development of multiple bilateral tree-in-bud and nodular opacities throughout both lungs. Emphysematous changes are seen. There is scarring in the right lung apex. There is no pleural effusion or pneumothorax. The thyroid enhances homogeneously. There is no supraclavicular, axillary, or mediastinal lymphadenopathy. The heart is normal in size with a trace pericardial effusion. There is no pulmonary embolism. The aorta and its branches are normal in course and caliber with scattered atherosclerotic calcifications. There are coronary artery cusp calcifications. There is no suspicious osseous lytic or blastic lesion. There is mild thickening of the distal esophagus, which can be seen in the setting of esophagitis. CT imaging evidence of right heart strain: No Abdomen/pelvis: The liver and pancreas are normal. Hyperdensities in the gallbladder wall may represent calcifications and is stable dating back to 2012. A hypodensity along the pancreatic tail is favored to represent a lymphangioma given its configuration. The spleen is diminutive. Adrenal glands and kidneys are normal. The urinary bladder is normal. The colon and small bowel is normal in course and caliber. There is diverticulosis without diverticulitis. The appendix is normal. The stomach is mildly distended and fluid-filled. A duodenal diverticulum is seen. The aorta and its branches are normal course and caliber with scattered atherosclerotic calcifications. There is stenosis of the origins of the renal arteries. There is no pelvic, retroperitoneal, or abdominal lymphadenopathy. There is no intraperitoneal free fluid or gas. There is no suspicious osseous lytic or blastic lesion. Procedure Note Ranjan Au MD - 09/07/2021 EXAMINATION: CT CHEST PE (CTA) ABDOMEN PELVIS W CONTRAST HISTORY: 55-year-old man with leukemia status post stem cell transplant in remission complaining of shortness of breath and abdominal pain. TECHNIQUE: Computed tomographic images were acquired using a chest angiographic protocol optimized for pulmonary embolism. Computed tomographic examination of the abdomen and pelvis with intravenous contrast was performed using a standard protocol. Contrast enhanced transaxial images were obtained following the intravenous administration of 100 ml of nonionic contrast. Multiplanar reformatted images and three-dimensional images were obtained on the 3-D workstation and sent to the PACS archival system. COMPARISON: Chest CT 11/20/2019; CT abdomen and pelvis 02/02/2013 FINDINGS: Chest: A 5 mm subsolid nodule in the right lower lobe with central lucency is seen at the previously seen site of a small nodule (table position -452). There has been interval development of multiple bilateral tree-in-bud and nodular opacities throughout both lungs. Emphysematous changes are seen. There is scarring in the right lung apex. There is no pleural effusion or pneumothorax. The thyroid enhances homogeneously. There is no supraclavicular, axillary, or mediastinal lymphadenopathy. The heart is normal in size with a trace pericardial effusion. There is no pulmonary embolism. The aorta and its branches are normal in course and caliber with scattered atherosclerotic calcifications. There are coronary artery cusp calcifications. There is no suspicious osseous lytic or blastic lesion. There is mild thickening of the distal esophagus, which can be seen in the setting of esophagitis. CT imaging evidence of right heart strain: No Abdomen/pelvis: The liver and pancreas are normal. Hyperdensities in the gallbladder wall may represent calcifications and is stable dating back to 2012. A hypodensity along the pancreatic tail is favored to represent a lymphangioma given its configuration. The spleen is diminutive. Adrenal glands and kidneys are normal. The urinary bladder is normal. The colon and small bowel is normal in course and caliber. There is diverticulosis without diverticulitis. The appendix is normal. The stomach is mildly distended and fluid-filled. A duodenal diverticulum is seen. The aorta and its branches are normal course and caliber with scattered atherosclerotic calcifications. There is stenosis of the origins of the renal arteries. There is no pelvic, retroperitoneal, or abdominal lymphadenopathy. There is no intraperitoneal free fluid or gas. There is no suspicious osseous lytic or blastic lesion. IMPRESSION: 1. Multiple tree-in-bud and nodular opacities are seen throughout the lungs with extensive plugged bronchi compatible with a combination of aspiration and infectious bronchiolitis. 2. No acute abnormality in the abdomen or pelvis. 3. No pulmonary embolism. ADDENDUM - This addendum is being placed on the report for a time dependent finding on a patient who is admitted to the hospital (2B). The esophagus is thick walled, which can be seen in esophagitis. The lung findings are compatible with aspiration and/or infectious bronchiolitis. These findings were communicated to Dr. Pelayo by Dr. Michael Chand at 0910 on . Dictated by: Michael Chand M.D. The radiology attending physician has personally reviewed this study, and had reviewed and/or edited this written report and agrees with it. Electronically signed by: Ranjan Au M.D. Anaid Kruse MD IMG CT PROCEDURES Fin al Result * POCT creatinine (09/07/2021 4:31 AM CDT) [facility] Signature Creatinine POC 1.1 0.7 - 1.3 mg/dL [facility] Blood 09/07/2021 4:31 AM CDT 09/07/2021 4:31 AM CDT us Notinfile Unknown LAB POCT ORDERABLES - DEVICE F inal Result [facility] Department of Laboratories [place], [place] [id number] * Erythrocyte sedimentation rate (09/07/2021 4:28 AM CDT) Erythrocyte sedimentation rate 10 1 - 20 mm/hr [facility] Blood 09/07/2021 4:28 AM CDT 09/07/2021 4:47 AM CDT us Anaid Kruse MD LAB BLOOD ORDERABLES Final Result Performing Organization Address [facility] Co de Phone Number [facility] [place] [address] * (ABNORMAL) CRP (acute phase) (09/07/2021 4:28 AM CDT) CRP 147.2(H) <=10.0 mg/L [facility] Blood 09/07/2021 4:28 AM CDT 09/07/2021 4:43 AM CDT us Anaid Kruse MD LAB BLOOD ORDERABLES Final Result Performing Organization Address [facility] de Phone Number [facility] [place] [address] * (ABNORMAL) Bilirubin, direct (09/07/2021 4:28 AM CDT) Bilirubin, direct 1.6(H) 0.1 - 0.3 mg/dL [facility] Blood 09/07/2021 4:28 AM CDT 09/07/2021 4:44 AM CDT us Anaid Kruse MD LAB BLOOD ORDERABLES Final Result Performing Organization Address [facility] [place] [address] * Acetaminophen level (09/07/2021 4:28 AM CDT) Acetaminophen 6.0 mcg/mL [facility] Comment: Interpretive Data Significant hepatic injury may occur and treatment with n-acetyl cysteine is generally recommended if the acetaminophen level exceeds: 150 mcg/mL at 4 hours after ingestion ??75 mcg/mL at 8 hours after ingestion ??38 mcg/mL at 12 hours after ingestion ??19 mcg/mL at 16 hours after ingestion Current interpretive data was last revised on 2008. Blood 09/07/2021 4:28 AM CDT 09/07/2021 4:43 AM CDT Anaid Kruse MD LAB BLOOD ORDERABLES Final Result Performing Organization Address [facility] Co de Phone Number [facility] Department [place] [address] * Tacrolimus level random (09/07/2021 4:28 AM CDT) Tacrolimus random <1.0 ng/mL [facility] Comment: Undetectable. ??Please verify that the correct immunosuppressant test was requested. Interpretive Data Testing performed by liquid chromatography-tandem mass spectrometry. ??Therapeutic concentrations vary depending on type of transplanted organ and time elapsed since transplant. ??Typical trough concentrations range from 5-15 ng/mL. ??This test was developed and its performance characteristics determined by the [facility] consistent with CLIA requirements. ??This test has not been cleared or approved by the [place] Food and Drug administration. ??Current interpretive data last reviewed 2020. Blood 09/07/2021 4:28 AM CDT 09/07/2021 4:47 AM CDT Anaid Kruse MD LAB BLOOD ORDERABLES Final Result Performing Organization Address [facility] Co de Phone Number [facility] Department [place] [address] * (ABNORMAL) Creatine kinase (CK), total (09/07/2021 4:28 AM CDT) CK 39(L) 40 - 300 Units/L [facility] Blood 09/07/2021 4:28 AM CDT 09/07/2021 4:43 AM CDT Anaid Kruse MD LAB BLOOD ORDERABLES Final Result Performing Organization Address [facility] de Phone Number ZULEMA DENT [facility] Department [place] [address] * (ABNORMAL) Triglycerides (09/07/2021 4:28 AM CDT) Triglycerides 233(H) <=149 mg/dL [facility] Comment: Interpretive Data Ages < or [...] Data was last revised on 2018. Blood 09/07/2021 4:28 AM CDT 09/07/2021 4:43 AM CDT Anaid Kruse MD LAB BLOOD ORDERABLES Final Result Performing Organization Address [facility] de Phone Number ZULEMA DENT [facility] Department [place] [address] * Critical Result Callback Chemistry (09/07/2021 4:28 AM CDT) Date Notified [id number] [facility] Time Notified 519 [facility] TestName Елена POOLE [facility] Called/Read Back Cruz DENT Credentials MD ZULEMA DENT Called By celestina DENT Blood 09/07/2021 4:28 AM CDT 09/07/2021 4:43 AM CDT Anaid Kruse MD LAB BLOOD ORDERABLES Final Result [facility] Department [place] [address] * eGFR (09/07/2021 4:28 AM CDT) eGFR 90 90 - 130 mL/min/1.7 3 m2 [facility] Comment: Interpretive Data Reference Interval Normal ?>/= 90 mL/min/1.73m2 Mildly decreased* ? 60 - 89 mL/min/1.73m2 Mildly to moderately decreased ?45 - 59 mL/min/1.73m2 Moderately to severely decreased ??30 - 44 mL/min/1.73m2 Severely decreased ?15 - 29 mL/min/1.73m2 Kidney Failure ?< 15 ??mL/min/1.73m2 *Relative to young adult level Estimated glomerular filtration rate is determined by the CKD-EPI equation recommended by the National Kidney Foundation (KDIGO 2012 Clinical Practice Guideline for the Evaluation and Management of Chronic Kidney Disease. Kidney Intnl Suppl Nov 2012;3:1). The CKD-EPI equation should not be used for patients with unstable renal function and has not been validated in children and those over 70. Current interpretive data was last reviewed 2020 Blood 09/07/2021 4:28 AM CDT 09/07/2021 4:44 AM CDT Anaid Kruse MD LAB BLOOD ORDERABLES Final Result [facility] Department [place] [address] * (ABNORMAL) Differential, auto (09/07/2021 4:28 AM CDT) Neutrophil abs 9.5(H) 1.7 - 6.5 K/cumm [facility] Imm gran abs 0.1 0.0 - 0.1 K/cumm [facility] Lymphocyte abs 1.1 0.8 - 3.3 K/cumm [facility] Monocyte abs 0.3 0.2 - 0.8 K/cumm [facility] Eosinophil abs 0.0 0.0 - 0.5 K/cumm [facility] Basophil abs 0.0 0.0 - 0.1 K/cumm [facility] Neutrophil pct 86.8 % [facility] Comment: Interpretive Data Percent cell count reference ranges are not reported, since discordance with absolute values may lead to misinterpretation of CBC data. Current Interpretive Data was last revised on 2018. Imm gran pct 0.8 % [facility] Comment: Interpretive Data Percent cell count reference ranges are not reported, since discordance with absolute values may lead to misinterpretation of CBC data. Current Interpretive Data was last revised on 2018. Lymphocyte pct 9.7 % [facility] Comment: Interpretive Data Percent cell count reference ranges are not reported, since discordance with absolute values may lead to misinterpretation of CBC data. Current Interpretive Data was last revised on 2018. Monocyte pct 2.4 % [facility] Comment: Interpretive Data Percent cell count reference ranges are not reported, since discordance with absolute values may lead to misinterpretation of CBC data. Current Interpretive Data was last revised on 2018. Eosinophil pct 0.1 % [facility] Comment: Interpretive Data Percent cell count reference ranges are not reported, since discordance with absolute values may lead to misinterpretation of CBC data. Current Interpretive Data was last revised on 2018. Basophil pct 0.2 % [facility] Comment: Interpretive Data Percent cell count reference ranges are not reported, since discordance with absolute values may lead to misinterpretation of CBC data. Current Interpretive Data was last revised on 2018. Blood 09/07/2021 4:28 AM CDT 09/07/2021 4:43 AM CDT us Anaid Kruse MD LAB BLOOD ORDERABLES Final Result Performing Organization Address City/[facility]/ZIP Co de Phone Number [facility] [place] [address] * (ABNORMAL) Lipase (09/07/2021 4:28 AM CDT) Lipase 650(C) 10 - 99 Units/L [facility] Blood 09/07/2021 4:28 AM CDT 09/07/2021 4:43 AM CDT Anaid Kruse MD LAB BLOOD ORDERABLES Final Result Performing Organization Address City/[facility] de Phone Number [facility] [place] [address] * Hepatitis panel, acute (09/07/2021 4:28 AM CDT) Pathologist [facility] Hep A IgM Nonreactive Nonreactive [facility] Comment: Interpretive Data: If Hep A IgM Ab is reported as Equivocal, a new sample should be drawn in two weeks for testing. Current interpretive data was last revised on 20. Hep B core IgM Nonreactive Nonreactive [facility] Comment: Interpretive Data If HepB Core IgM Ab is reported as Equivocal, a new sample should be drawn in two weeks for testing. Current interpretive data was last revised on 20. Hep C Ab Nonreactive Nonreactive [facility] Comment:Antibodies to HCV no t detected. Does NOT exclude the possibility of recent exposure to HCV. HepBsAg Nonreactive Nonreactive [facility] Blood 09/07/2021 4:28 AM CDT 09/07/2021 4:44 AM CDT us Anaid Kruse MD LAB MICROBIOL OGY - GENERAL ORDERABLES Edited Result - Final Performing Organization Address [facility] Co de Phone Number [facility] [place] [address] * Ammonia (09/07/2021 4:28 AM CDT) Ammonia 21 5 - 50 mcmol/L [facility] Blood 09/07/2021 4:28 AM CDT 09/07/2021 4:38 AM CDT us Anaid Kruse MD LAB BLOOD ORDERABLES Final Result Performing Organization Address [facility] de Phone Number [facility] Department [place] [address] * Type and screen (09/07/2021 4:28 AM CDT) ABO Rh A Positive [facility] Ursula, indirect Negative [facility] Blood 09/07/2021 4:28 AM CDT 09/07/2021 4:36 AM CDT Narrative [facility] - 09/07/2021 5:38 AM CDT Has the patient had Daratumumab or Isatuximab in the past 6 months?->Unknown us Anaid Kruse MD LAB BLOOD BANK TEST O RDERABLES Final Result Performing Organization Address [facility] Co de Phone Number [facility] [place] [address] * (ABNORMAL) Protime-INR (09/07/2021 4:28 AM CDT) PT 14.9(H) 9.5 - 13.6 sec [facility] INR 1.3(H) 0.9 - 1.2 [facility] Comment: Interpretive data Oral anticoagulant therapeutic ranges: Venous thromboembolism prophylaxis or treatment: 2.0-3.0 CARDIOLOGY Standard range: 2.0-3.0 High-intensity range: 2.5-3.5 Refer to indication-specific guidelines for appropriate target ranges for prosthetic heart valve replacement. Current interpretive data was last revised on 2019. Blood 09/07/2021 4:28 AM CDT 09/07/2021 4:54 AM CDT us Anaid Kruse MD LAB BLOOD ORDERABLES Final Result Performing Organization Address [facility] de Phone Number [facility] [place] [address] * aPTT (09/07/2021 4:28 AM CDT) Pathologist [facility] aPTT 28 27 - 37 sec [facility] Comment: Interpretive Data Therapeutic heparin range: 60.0 - 94.0 seconds. Based on correlation with therapeutic heparin activity range of 0.3-0.7 Units/mL. Current interpretive data was last revised on 2021. Blood 09/07/2021 4:28 AM CDT 09/07/2021 4:54 AM CDT us Anaid Kruse MD LAB BLOOD ORDERABLES Final Result Performing Organization Address [facility] de Phone Number [facility] [place] [address] * (ABNORMAL) Comprehensive metabolic panel (09/07/2021 4:28 AM CDT) Pathologist [facility] Sodium 140 135 - 145 mmol/L [facility] Potassium, pl 5.0(H) 3.3 - 4.9 mmol/L [facility] Comment:Hemolyzed; Potassium value may be falsely elevated by as much as 0.3-0.5 mmol/L. Suggest redraw and reanalysis. Chloride 94(L) 97 - 110 mmol/L [facility] CO2 25 22 - 32 mmol/L [facility] Anion gap 21(H) 2 - 15 mmol/L [facility] BUN 34(H) 8 - 25 mg/dL [facility] Creatinine 0.95 0.80 - 1.30 mg/dL [facility] Glucose 319(H) 70 - 199 mg/dL [facility] Comment: Interpretive Data Fasting glucose >/= [...] 2017. Calcium 10.0 8.5 - 10.3 mg/dL [facility] Bilirubin, total 3.2(H) 0.1 - 1.2 mg/dL [facility] Protein, pl 7.9 6.5 - 8.5 g/dL [facility] Albumin 4.0 3.5 - 5.0 g/dL [facility] Alk phos 234(H) 40 - 130 Units/L [facility] ALT 3,535(H) 7 - 55 Units/L [facility] AST 1,047(H) 10 - 50 Units/L [facility] Comment:Hemolyzed; result ma y be falsely elevated Blood 09/07/2021 4:28 AM CDT 09/07/2021 4:44 AM CDT Aanid Kruse MD LAB BLOOD ORDERABLES Final Result [facility] Department [place] [address] * (ABNORMAL) CBC with auto differential (09/07/2021 4:28 AM CDT) Pathologist [facility] WBC 11.0(H) 3.8 - 9.9 K/cumm [facility] Hgb 16.5 13.0 - 17.5 g/dL [facility] Hct 46.9 38.9 - 50.3 % [facility] Plt 202 150 - 400 K/cumm [facility] MPV 11.4 9.1 - 12.3 fL [facility] RBC 4.82 4.30 - 5.80 M/cumm [facility] MCV 97.3(H) 81.3 - 96.4 fL [facility] MCH 34.2(H) 27.1 - 33.3 pg [facility] MCHC 35.2 32.3 - 35.7 g/dL [facility] RDW CV 14.6 11.1 - 14.9 % [facility] RDW SD 51.8(H) 35.7 - 48.1 fL [facility] NRBC abs 0.11(H) 0.00 - 0.01 K/cumm [facility] Blood 09/07/2021 4:28 AM CDT 09/07/2021 4:43 AM CDT Anaid Kruse MD LAB BLOOD ORDERABLES Final Result Performing Organization Address City/[facility]/ZIP Co de Phone Number [facility] [place] [address] * (ABNORMAL) POCT glucose (09/07/2021 4:26 AM CDT) Pathologist [facility] Glucose, POC 273(H) 70 - 199 mg/dL [facility] Blood 09/07/2021 4:26 AM CDT 09/07/2021 4:26 AM CDT us Notinfile Unknown LAB POCT ORDERABLES - DEVICE F inal Result Performing Organization Address City/[facility] Co de Phone Number [facility] [place] [address] * ECG 12-LEAD (09/07/2021 3:28 AM CDT) Narrative [facility] - 09/07/2021 3:28 AM CDT Azucena Leal MD ? 09/07/2021 ??3:29 AM ECG 12 lead Date/Time: 09/07/2021 3:28 AM Performed by: Azucena Leal MD Authorized by: Azucena Leal MD Rate: ??ECG rate: ??101 ??ECG rate assessment: tachycardic ?? Rhythm: ??Rhythm: sinus tachycardia ?? Ectopy: ??Ectopy: none ?? QRS: ??QRS axis: ??Right ??QRS intervals: ??Normal Conduction: ??Conduction: normal ?? ST segments: ??ST segments: ??Normal T waves: ??T waves: normal ?? Previous ECG: ??Previous ECG: ??Compared to current ??Date of previous ECG: ??08/17/2021 ??Similarity: ??No change Interpretation: ??Interpretation: No significant change ?? Recommended Follow-up: ??Recommended follow up: further workup in the ED ?? Procedure Note Azucena Leal MD - 09/07/2021 3:28 AM CDT Procedure ECG 12 lead Date/Time: 09/07/2021 3:28 AM Performed by: Azucena Leal MD Authorized by: Azucena Leal MD Rate: ECG rate: 101 ECG rate assessment: tachycardic Rhythm: Rhythm: sinus tachycardia Ectopy: Ectopy: none QRS: QRS axis: Right QRS intervals: Normal Conduction: Conduction: normal ST segments: ST segments: Normal T waves: T waves: normal Previous ECG: Previous ECG: Compared to current Date of previous EC08/17/2021 Similarity: No change Interpretation: Interpretation: No significant change Recommended Follow-up: Recommended follow up: further workup in the ED Azucena Leal MD 09/07/21 0329 Anaid Kruse MD ECG ORDERABLES Final Result [facility] * (ABNORMAL) POCT glucose (09/07/2021 3:15 AM CDT) Glucose, POC 266(H) 70 - 199 mg/dL [facility] Blood 09/07/2021 3:1 5 AM CDT 09/07/2021 3:15 AM CDT us Notinfile Unknown LAB POCT ORDERABLES - DEVICE F inal Result [facility] Department of [place] [address] documented in this encounter Visit Diagnoses Diagnosis Acute hepatitis Acute and subacute necrosis of liver Jaundice Jaundice, unspecified, not of Abdominal pain Abdominal pain, unspecified site Hematemesis, presence of nausea not specified Abdominal pain Abdominal pain, unspecified site COPD with exacerbation (CMS/HCC) (HCC) 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) History of DVT (deep vein thrombosis) History of pulmonary embolism Personal history of venous thrombosis and embolism documented in this encounter Admitting Diagnoses Diagnosis Abdominal pain Abdominal pain, unspecified site Hematemesis documented in this encounter Administered Medications Inactive Administered Medications - up to 3 most recent administrations Medication Order MAR Action Action Date Dose Rate Site acyclovir (ZOVIRAX) tablet 400 mg 400 mg, oral, 3 times daily, First dose on Sat09/07/21 at 2100, Indications: Prophylaxis, MedicalIndications:Prophylaxis, Medical Given 09/10/2021 4:11 PM CDT 400 mg Given 09/10/2021 9:09 AM CDT 400 mg Given 09/09/2021 8:42 PM CDT 400 mg albuterol 2.5 mg/0.5 mL nebulizer solution 5 mg 5 mg, nebulization, Once (therapist respiratory), On Sat09/07/21 at 0722, For 1 dose Given 09/07/2021 7:28 AM CDT 5 mg albuterol HFA (PROVENTIL HFA,VENTOLIN HFA,PROAIR HFA) 90 mcg/actuation inhaler 1 puff 1 puff, inhalation, Every 4 hours PRN (therapist respiratory), wheezing, Starting on Angy 09/07/21 at 2020 Given 09/08/2021 9:24 AM CDT 1 puff albuterol HFA (PROVENTIL HFA,VENTOLIN HFA,PROAIR HFA) 90 mcg/actuation inhaler 1 puff 1 puff, inhalation, Every 4 hours PRN, wheezing, Starting on Sat09/08/21 at 1045, RN TO ADMINISTER calcium carbonate (TUMS) chewable tablet 500 mg 500 mg (200 mg of elemental calcium), oral, 2 times daily, First dose on Sat09/10/21 at 0945 Given 09/10/2021 10:44 AM CDT 500 mg dextromethorphan-guaiFENesin (ROBITUSSIN-DM) 2-20 mg/mL syrup 10 mL 10 mL, oral, Every 4 hours PRN, cough, Starting on Sat09/07/21 at 2021, For 11 days, Indications: CoughIndications:Cough Given 09/10/2021 12:57 AM CDT 1 0 mL Given 09/09/2021 8:34 AM CDT 10 mL Given 09/08/2021 4:08 PM CDT 10 mL dextrose (D10W) 10% bolus 250 mL 250 mL, intravenous, at 1,000 mL/hr, Administer over 15 Minutes, Every 15 min PRN, blood glucose less than 70 mg/dL and UNABLE to swallow/take PO glucose/juice., Starting on Angy 09/07/21 at 2047, After treatment for hypoglycemia, recheck BG followed [...] glucose less than 70 mg/dL, Starting on Angy 09/07/21 at 2047, If patient is alert and able to [...] Call MD for each episode of hypoglycemia. [employer] BPM ARCHITECT STATES GLUTOSE-15 CONTAINS GLUCOSE 40% W/W (50% W/V), Indications: hypoglycemic disorderIndications:hypoglycemic disorder jaobyqbndzt-efweqknxj-csjwfcty (TRELEGY ELLIPTA) 100-62.5-25 mcg inhaler 1 puff 1 puff, inhalation, Daily (therapist respiratory), First dose on Sat09/08/21 at 0800, Rinse mouth with water after use. Do not swallow., Indications: Bronchospasm Prevention with COPDIndications:Bronchospasm Prevention with COPD Given 09/08/2021 9:01 AM CDT 1 puff hevlpcojryw-xykugvcac-qlmodbgt (TRELEGY ELLIPTA) 100-62.5-25 mcg inhaler 1 puff 1 puff, inhalation, Daily, First dose (after last modification) on Sat09/09/21 at 0900, Rinse mouth with water after use. Do not swallow. RN TO ADMINISTER, Indications: Bronchospasm Prevention with COPDIndications:Bronchospasm Prevention with COPD Given 09/10/2021 9:10 AM CDT 1 puff Given 09/09/2021 8:24 AM CDT 1 puff gabapentin (NEURONTIN) capsule 300 mg 300 mg, oral, 4 times daily, First dose on Angy 09/07/21 at 2115, Do not crush, break, or open. Given 09/10/2021 4:11 PM CDT 300 mg Given 09/10/2021 12:11 PM CDT 300 mg Given 09/10/2021 9:08 AM CDT 300 mg glucagon injection 1 mg 1 mg, intramuscular, Every 30 min PRN, low blood sugar, blood glucose less than 70 mg/dL AND no IV access AND unable to take PO glucose/juice., Starting on Angy 09/07/21 at 2048, After Glucagon is administered, position patient on [...] immediately following reconstitution. heparin 10 unit/mL flush 50 Units 50 Units (5 mL), intra-catheter, Every 12 hours scheduled, First dose on Angy 09/07/21 at 2100, Do not use with Groshong catheter, Indications: Maintain Patency of Indwelling Vascular CatheterIndications:Maintain Patency of Indwelling Vascular Catheter Given 09/09/2021 8:43 PM CDT 50 U nits Given 09/08/2021 8:25 PM CDT 50 Units insulin glargine (LANTUS, SEMGLEE) 100 unit/mL injection 10 Units 10 Units, subcutaneous, Nightly, First dose on Angy 09/07/21 at 2115, Do not mix with other insulins Given 09/08/2021 9:37 PM CDT 10 Units Left Upper Abdomen Given 09/07/2021 9:31 PM CDT 10 Units Le ft Lower Abdomen insulin glargine (LANTUS, SEMGLEE) 100 unit/mL injection 15 Units 15 Units, subcutaneous, Nightly, First dose (after last modification) on 09/09/21 at 2100, Do not mix with other insulins Given 09/09/2021 9:45 PM CDT 15 Units Left Upper Arm insulin lispro (HumaLOG, ADMELOG) 100 unit/mL injection 0-10 Units 0-10 Units, subcutaneous, 3 times daily with meals, First dose on Sat09/08/21 at 0800, Blood glucose mg/dL: 149 or [...] NPO Status, Indications: Diabetes MellitusIndications:Diabetes Mellitus Given 09/10/2021 9:09 AM CDT 2 Units Left Upper Abdomen Given 09/09/2021 7:07 PM CDT 2 Units Le ft Upper Abdomen insulin lispro (HumaLOG, ADMELOG) 100 unit/mL injection 0-5 Units 0-5 Units, subcutaneous, Nightly, First dose on Angy 09/07/21 at 2130, Blood glucose mg/dL: 149 or less: No [...] NPO Status, Indications: Diabetes MellitusIndications:Diabetes Mellitus Given 09/09/2021 9:45 PM CDT 2 Units Left Upper Arm Given 09/07/2021 9:31 PM CDT 2 Units Le ft Lower Abdomen insulin lispro (HumaLOG, ADMELOG) 100 unit/mL injection 5 Units 5 Units, subcutaneous, 3 times daily with meals, First dose (after last modification) on Sat09/08/21 at 0800 Given 09/10/2021 9:09 AM CDT 5 Units L eft Upper Abdomen Given 09/09/2021 7:07 PM CDT 5 Units Le ft Upper Abdomen Given 09/09/2021 12:29 PM CDT 5 Units L eft Upper Abdomen insulin regular (HumuLIN R, NovoLIN R) 100 unit/mL injection 3 Units 3 Units, intravenous, Once, On Angy 09/07/21 at 0546, For 1 dose, Indications: HyperglycemiaIndications:Hyp erglycemia Given 09/07/2021 5:55 AM CDT 3 Units ioversoL (OPTIRAY 350) syringe syringe 100 mL 100 mL, intravenous, Once in imaging, contrast, Starting on Angy 09/07/21 at 0521, For 1 dose Contrast Given 09/07/2021 5:43 AM CDT 100 mL ipratropium (ATROVENT) 0.02 % nebulizer solution 0.5 mg 0.5 mg, nebulization, Once (therapist respiratory), On Angy 09/07/21 at 0722, For 1 dose Given 09/07/2021 7:28 AM CDT 0.5 mg Lactated Ringer's (LR) bolus 1,000 mL 1,000 mL, intravenous, at 1,000 mL/hr, Administer over 1 Hours, Once, On Angy 09/07/21 at 0510, For 1 dose New Bag 09/07/2021 5:48 AM CDT 1,000 mL 1000 mL/hr meropenem (MERREM) 1,000 mg/110 mL in sodium chloride 0.9% (premix) 1,000 mg 1,000 mg, intravenous, at 220 mL/hr, Administer over 30 Minutes, Every 8 hours scheduled, First dose on Angy 09/07/21 at 1036, Indications: Abdominal/Pelvic Infection, Pneumonia, Hospital AcquiredIndications:Abdomina l/Pelvic Infection,Pneumonia, Hospital Acquired New Bag 09/09/2021 5:41 AM CDT 1,000 mg 220 mL/hr New Bag 09/08/2021 9:37 PM CDT 1,000 mg 220 mL/hr New Bag 09/08/2021 1:40 PM CDT 1,000 mg 220 mL/hr montelukast (SINGULAIR) tablet 10 mg 10 mg, oral, Daily before breakfast, First dose on Sat09/08/21 at 0730 Given 09/10/2021 6:39 AM CDT 10 mg Given 09/09/2021 8:22 AM CDT 10 mg Given 09/08/2021 6:45 AM CDT 10 mg morphine injection 2 mg 2 mg, intravenous, Administer over 4 Minutes, Once, On Angy 09/07/21 at 0510, For 1 dose, Indications: PainIndications:Pain Given 09/07/2021 5:44 AM CDT 2 mg morphine injection 4 mg 4 mg, intravenous, Administer over 4 Minutes, Once, On Angy 09/07/21 at 0942, For 1 dose Given 09/07/2021 10:06 AM CDT 4 mg mycophenolate mofetil (CELLCEPT) tablet 1,000 mg 1,000 mg, oral, 2 times daily, First dose on Angy 09/07/21 at 2115, Do not crush, chew, cut, dissolve, open or otherwise manipulate tablet/capsule., Indications: immunosuppression maintenance tx for lung transplant, Stem cell transplantIndications:immunosuppression maintenance tx for lung transplant,Stem cell transplant Given 09/10/2021 9:09 AM CDT 1,000 mg Given 09/09/2021 8:42 PM CDT 1,000 mg Given 09/09/2021 8:22 AM CDT 1,000 mg nicotine (NICODERM CQ) 21 mg patch 24 hour 1 patch 1 patch, transdermal, Administer over 24 Hours, Daily, First dose on Sat09/08/21 at 2315, Apply a new patch every 24 hours to a clean, dry, hairless site on the upper arm or hip. Rotate site. Medication Applied 09/10/2021 12:44 AM CDT 1 patch Left Arm Medication Applied 09/09/2021 12:05 AM CDT 1 patch Right Arm ofloxacin (OCUFLOX) 0.3 % ophthalmic solution 1 drop 1 drop, left eye, 4 times daily, First dose on Angy 09/07/21 at 2100 Given 09/10/2021 12:11 PM CDT 1 drop Given 09/10/2021 9:10 AM CDT 1 drop Given 09/09/2021 8:43 PM CDT 1 drop ondansetron (ZOFRAN) injection 4 mg 4 mg, intravenous, Administer over 2 Minutes, Once, On Angy 09/07/21 at 0510, For 1 dose, Indications: Nausea and VomitingIndications:Nausea and Vomiting Given 09/07/2021 5:44 AM CDT 4 mg ondansetron (ZOFRAN) injection 4 mg 4 mg, intravenous, Administer over 2 Minutes, Every 4 hours PRN, nausea, vomiting, Starting on Sat09/07/21 at 0956 Given 09/07/2021 10:05 AM CDT 4 mg oxyCODONE-acetaminophen (PERCOCET) 5-325 mg per tablet 1 tablet 1 tablet, oral, Every 4 hours PRN, 1st line for pain, Starting on Sat09/07/21 at 2045, Indications: PainIndications:Pain Given 09/09/2021 1:34 AM CDT 1 ta blet Given 09/08/2021 9:42 AM CDT 1 tablet Given 09/08/2021 6:45 AM CDT 1 tablet pantoprazole (PROTONIX) 4 mg/mL injection 40 mg 40 mg, intravenous, Administer over 2 Minutes, 2 times daily, First dose on Angy 09/07/21 at 2130, For IV Push administration for adults- 40 mg vial: add 10 mL of sodium chloride 0.9% to achieve a final concentration of 4 mg/mL, Indications: GI Bleed, Stress Ulcer ProphylaxisIndications:GI Bleed,Stress Ulcer Prophylaxis Given 09/10/2021 9:09 AM CDT 40 mg Given 09/09/2021 8:43 PM CDT 40 mg Given 09/09/2021 8:21 AM CDT 40 mg pantoprazole (PROTONIX) 4 mg/mL injection 80 mg 80 mg, intravenous, Administer over 2 Minutes, Once, On Angy 09/07/21 at 0510, For 1 dose, For IV Push administration for adults- 40 mg vial: add 10 mL of sodium chloride 0.9% to achieve a final concentration of 4 mg/mL, Indications: GI BleedIndications:GI Bleed Given 09/07/2021 5:44 AM CDT 80 mg potassium, sodium phosphates (PHOS-NAK) 280-160-250 mg packet 2 packet 2 packet, oral, 3 times daily before meals, First dose on 09/09/21 at 1430, Each packet contains 250 mg elemental phosphorus. Each packet contains elemental phosphorus 250 mg (8 mmol), potassium 280 mg (7.1 mEq), and sodium 160 mg (6.9 mEq). Given 09/10/2021 4:11 P M CDT 2 packets Given 09/10/2021 12:11 PM CDT 2 packets Given 09/10/2021 6:39 AM CDT 2 packets prednisoLONE acetate (PRED FORTE) 1 % ophthalmic suspension 1 drop 1 drop, left eye, 4 times daily, First dose on Angy 09/07/21 at 2100, shake well Given 09/10/2021 12:13 PM CDT 1 lawrence p Given 09/10/2021 9:10 AM CDT 1 drop Given 09/09/2021 8:42 PM CDT 1 drop rivaroxaban (XARELTO) tablet 20 mg 20 mg, oral, Daily (early AM), First dose (after last modification) on 09/09/21 at 1300, Nurse to discontinue heparin infusion order and associated bolus at first administration of rivaroxaban using 'order condition met' order source. If patient is eating, administer doses of 15 mg or greater with food. If patient is not eating, still administer dose unless instructed differently by provider., Indications: VTE Prophylaxis, PE-2010Indications:VTE Prophylaxis,PE-2010 Given 09/10/2021 6:39 AM CDT 2 0 mg Given 09/09/2021 2:15 PM CDT 20 mg sodium chloride 0.9% bolus 500 mL 500 mL, intravenous, Once, On 09/09/21 at 0745, For 1 dose New Bag 09/09/2021 8:25 AM CDT 500 mL sodium chloride 0.9% infusion 30 mL/hr, intravenous, Continuous, Starting on Angy 09/07/21 at 1345, For 6 hours, Pre-Procedure (GI) Rate/Dose Verify 09/07/2021 1:40 PM CDT 3 0 mL/hr New Bag 09/07/2021 1:26 PM CDT 30 mL/hr 30 mL/hr sodium chloride 0.9% infusion 30 mL/hr, intravenous, Continuous PRN, KVO for medication administrations, Starting on Angy 09/07/21 at 2020 New Bag 09/09/2021 5:41 AM CDT 30 mL/hr 30 mL/hr sodium chloride 0.9% infusion 100 mL/hr, intravenous, Continuous, Starting on Angy 09/07/21 at 2200, For 12 hours New Bag 09/08/2021 5:54 AM CDT 100 mL/hr 100 mL/hr Rate/Dose Verify 09/08/2021 3:57 AM CDT 100 mL/hr 100 mL/ hr Rate/Dose Verify 09/08/2021 1:54 AM CDT 100 mL/hr 100 mL/ hr sodium chloride 0.9% infusion 75 mL/hr, intravenous, Continuous, Starting on 09/09/21 at 0745, For 8 hours New Bag 09/09/2021 8:25 AM CDT 75 mL/hr 75 mL/hr sucralfate (CARAFATE) tablet 1 g 1 g, oral, 2 times daily, First dose on Sat09/10/21 at 0900 Given 09/10/2021 9:08 AM CDT 1 g tacrolimus (PROGRAF) immediate-release capsule 0.5 mg 0.5 mg, oral, Every 48 hours, First dose on Sat09/08/21 at 0900, Avoid grapefruit juice Given 09/10/2021 9:08 AM CDT 0.5 mg Given 09/08/2021 8:59 AM CDT 0.5 mg voriCONAZOLE (VFEND) tablet 200 mg 200 mg, oral, 2 times daily, First dose on Angy 09/07/21 at 2100, Indications: stem Cell TransplantIndications:stem Cell Transplant Given 09/10/2021 9:08 AM CDT 2 00 mg Given 09/09/2021 8:42 PM CDT 200 mg Given 09/09/2021 8:22 AM CDT 200 mg documented in this encounter Active and Recently Administered Medications Times are shown in CDT. Scheduled Medication Order 09/08/2021 09/09/2021 09/10/2021 acyclovir (ZOVIRAX) tablet 400 mg 400 mg, oral, 3 times daily, First dose on Angy 09/07/21 at 2100, Indications: Prophylaxis, Medical 0900 (Given - Provider: Ramonita Chilel RN)1607 (Given - Provider: Ramonita Chilel RN)2024 (Given - Provider: Sri Le RN) 0822 (Given - Provider: Snow Alfonso RN)1633 (Given - Provider: Snow Alfonso RN)2042 (Given - Provider: Sri Le RN) 0909 (Given - Provider: Snow Alfonso RN)1611 (Given - Provider: Snow Alfonso RN) calcium carbonate (TUMS) chewable tablet 500 mg 500 mg (200 mg of elemental calcium), oral, 2 times daily, First dose on Sat09/10/21 at 0945 1044 (Given - Provider: Snow Alfonso RN) tyngxnemplp-zmfewnhvt-rnlp nter (TRELEGY ELLIPTA) 100-62.5-25 mcg inhaler 1 puff (CANCELED) 1 puff, inhalation, Daily (therapist respiratory), First dose on Sat09/08/21 at 0800, Rinse mouth with water after use. Do not swallow., Indications: Bronchospasm Prevention with COPD 09 (Given - Provider: Ramonita Chilel RN) qcteatzrujv-gnicskwbo-uqto nter (TRELEGY ELLIPTA) 100-62.5-25 mcg inhaler 1 puff 1 puff, inhalation, Daily, First dose (after last modification) on Sat09/09/21 at 0900, Rinse mouth with water after use. Do not swallow. RN TO ADMINISTER, Indications: Bronchospasm Prevention with COPD 0824 (Given - Provider: Snow Alfonso RN) 0910 (Given - Provider: Snow Alfonso RN) gabapentin (NEURONTIN) capsule 300 mg 300 mg, oral, 4 times daily, First dose on Angy 09/07/21 at 2115, Do not crush, break, or open. 0900 (Given - Provider: Ramonita Chilel RN)1340 (Given - Provider: Ramonita Chilel RN)1607 (Given - Provider: Ramonita Chilel RN)2023 (Given - Provider: Sri Le RN) 0822 (Given - Provider: Snow Alfonso RN)1229 (Given - Provider: Snow Alfonso RN)1633 (Given - Provider: Snow Alfonso RN)204 (Given - Provider: Sri Le RN) 0908 (Given - Provider: Snow Alfonso RN)1211 (Given - Provider: Snow Alfonso RN)1611 (Given - Provider: Snow Alfonso RN) heparin 10 unit/mL flush 50 Units 50 Units (5 mL), intra-catheter, Every 12 hours scheduled, First dose on Angy 09/07/21 at 2100, Do not use with Groshong catheter, Indications: Maintain Patency of Indwelling Vascular Catheter 1004 (Not Given - Provider: Ramonita Chilel RN - Reason: Patient/family refused)2024 (Given - Provider: Sri Le RN) 0822 (Not Given - Provider: Snow Alfonso RN - Reason: IV Infusing)2042 (Given - Provider: Sri Le RN) 0910 (Not Given - Provider: Snow Alfonso RN - Reason: IV Infusing) insulin glargine (LANTUS, SEMGLEE) 100 unit/mL injection 10 Units (CANCELED) 10 Units, subcutaneous, Nightly, First dose on Angy 09/07/21 at 2115, Do not mix with other insulins 2136 (Given - Provider: Sri Le, BECKI) insulin glargine (LANTUS, SEMGLEE) 100 unit/mL injection 15 Units 15 Units, subcutaneous, Nightly, First dose (after last modification) on Sat09/09/21 at 2100, Do not mix with other insulins 2144 (Given - Provider: Sri Le, BECKI) insulin lispro (HumaLOG, ADMELOG) 100 unit/mL injection 0-10 Units 0-10 Units, subcutaneous, 3 times daily with meals, First dose on Sat09/08/21 at 0800, Blood glucose mg/dL: 149 or [...] hold for NPO Status, Indications: Diabetes Mellitus 1003 (Not Given - Provider: Ramonita Chilel RN - Reason: Patient/family refused)1331 (Not Given - Provider: Ramonita Chilel RN - Reason: Order parameters not met)1758 (Not Given - Provider: Ramonita Chilel RN - Reason: Order parameters not met) 0812 (Not Given - Provider: Snow Alfonso RN - Reason: Order parameters not met)1229 (Not Given - Provider: Snow Alfonso RN - Reason: Order parameters not met)1907 (Given - Provider: Snow Alfonso RN) 0909 (Given - Provider: Snow Alfonso RN)1206 (Not Given - Provider: Snow Alfonso RN - Reason: Order parameters not met) insulin lispro (HumaLOG, ADMELOG) 100 unit/mL injection 0-5 Units 0-5 Units, subcutaneous, Nightly, First dose on Angy 09/07/21 at 2130, Blood glucose mg/dL: 149 or less: No insulin 150-199: add 1 unit 200-249: add 2 units 250-299: add 3 units 300-349: add 4 units and notify physician for adjustment of insulin orders. 350-399: add 5 units and notify physician for adjustment of insulin orders. Over 400: Notify physician for adjustment of insulin orders. Do NOT hold for NPO Status, Indications: Diabetes Mellitus 2124 (Not Given - Provider: Sri Le RN - Reason: Patient/family refused) 2144 (Given - Provider: Sri Le RN) insulin lispro (HumaLOG, ADMELOG) 100 unit/mL injection 5 Units 5 Units, subcutaneous, 3 times daily with meals, First dose (after last modification) on Sat09/08/21 at 0800 0900 (Given - Provider: Ramonita Chilel RN)1331 (Not Given - Provider: Ramonita Chilel RN - Reason: Order parameters not met)1800 (Due) 0826 (Given - Provider: Snow Alfonso RN)1229 (Given - Provider: Snow Alfonso RN)1907 (Given - Provider: Snow Alfonso, BECKI) 0909 (Given - Provider: Snow Alfonso RN)1206 (Not Given - Provider: Snow Alfonso RN - Reason: Other - Comment: BS 80-pt not eating lunch) meropenem (MERREM) 1,000 mg/110 mL in sodium chloride 0.9% (premix) 1,000 mg (CANCELED) 1,000 mg, intravenous, at 220 mL/hr, Administer over 30 Minutes, Every 8 hours scheduled, First dose on Angy 09/07/21 at 1036, Indications: Abdominal/Pelvic Infection, Pneumonia, Hospital Acquired 0555 (New Bag - Provider: Marialuisa Starks RN)1004 (Stopped - Provider: Ramonita Chilel RN)1340 (New Bag - Provider: Ramonita Chilel, BECKI)1557 (Stopped - Provider: Ramonita Chilel, BECKI)2137 (New Bag - Provider: Sri Le, BECKI)2239 (Stopped - Provider: Sri Le, BECKI) 0541 (New Bag - Provider: Sri Le, BECKI)0703 (Stopped - Provider: Sri Le, BECKI) montelukast (SINGULAIR) tablet 10 mg 10 mg, oral, Daily before breakfast, First dose on Sat09/08/21 at 0730 0645 (Given - Provider: Marialuisa Starks, BECKI) 0822 (Given - Provider: Snow Alfonso, BECKI) 0639 (Given - Provider: Sri Le RN) mycophenolate mofetil (CELLCEPT) tablet 1,000 mg 1,000 mg, oral, 2 times daily, First dose on Sat09/07/21 at 2115, Do not crush, chew, cut, dissolve, open or otherwise manipulate tablet/capsule., Indications: immunosuppression maintenance tx for lung transplant, Stem cell transplant 0859 (Given - Provider: Ramonita Chilel RN)2024 (Given - Provider: Sri Le RN) 08 (Given - Provider: Snow Alfonso RN)204 (Given - Provider: Sri Le RN) 0909 (Given - Provider: Snow Alfonso RN) nicotine (NICODERM CQ) 21 mg patch 24 hour 1 patch 1 patch, transdermal, Administer over 24 Hours, Daily, First dose on Sat09/08/21 at 2315, Apply a new patch every 24 hours to a clean, dry, hairless site on the upper arm or hip. Rotate site. 0005 (Medication Applied - Provider: Sri Le RN) 0044 (Medication Applied - Provider: Sri Le RN)0045 (Medication Removed - Provider: Sri Le RN)1700 (Due: Medication Removed - Provider: Automatic Discharge Provider - Comment: Time automatically adjusted from order being discontinued) ofloxacin (OCUFLOX) 0.3 % ophthalmic solution 1 drop 1 drop, left eye, 4 times daily, First dose on Sat09/07/21 at 2100 0902 (Given - Provider: Ramonita Chilel RN)1341 (Given - Provider: Ramonita Chilel RN)1758 (Given - Provider: Ramonita Chilel RN)2026 (Given - Provider: Sri Le RN) 0825 (Given - Provider: Snow Alfonso, BECKI)1200 (Given - Provider: Snow Alfonso RN)1633 (Given - Provider: Snow Alfonso RN)204 (Given - Provider: Sri Le RN) 0910 (Given - Provider: Snow Alfonso RN)121 (Given - Provider: Snow Alfonso RN)1700 (Due) pantoprazole (PROTONIX) 4 mg/mL injection 40 mg 40 mg, intravenous, Administer over 2 Minutes, 2 times daily, First dose on Angy 09/07/21 at 2130, For IV Push administration for adults- 40 mg vial: add 10 mL of sodium chloride 0.9% to achieve a final concentration of 4 mg/mL, Indications: GI Bleed, Stress Ulcer Prophylaxis 09 (Given - Provider: Ramonita Chilel RN)2023 (Given - Provider: Sri Le RN) 08 (Given - Provider: Snow Alfonso RN)2042 (Given - Provider: Sri Le RN) 0909 (Given - Provider: Snow Alfonso RN) potassium, sodium phosphates (PHOS-NAK) 280-160-250 mg packet 2 packet 2 packet, oral, 3 times daily before meals, First dose on 09/09/21 at 1430, Each packet contains 250 mg elemental phosphorus. Each packet contains elemental phosphorus 250 mg (8 mmol), potassium 280 mg (7.1 mEq), and sodium 160 mg (6.9 mEq). 1415 (Given - Provider: Snow Alfonso RN) 0639 (Given - Provider: Sri Le RN)121 (Given - Provider: Snow Alfonso RN)1611 (Given - Provider: Snow Alfonso RN) prednisoLONE acetate (PRED FORTE) 1 % ophthalmic suspension 1 drop 1 drop, left eye, 4 times daily, First dose on Angy 09/07/21 at 2100, shake well 0901 (Given - Provider: Ramonita Chilel RN)1341 (Given - Provider: Ramonita Chilel RN)1758 (Given - Provider: Ramonita Chilel, BECKI)2024 (Given - Provider: Sri Le RN) 0824 (Given - Provider: Snow Alfonso RN)1200 (Given - Provider: Snow Alfonso RN)1633 (Given - Provider: Snow Alfonso RN)204 (Given - Provider: Sri Le RN) 0910 (Given - Provider: Snow Alfonso RN)1213 (Given - Provider: Snow Alfonso RN)1700 (Due) rivaroxaban (XARELTO) tablet 20 mg 20 mg, oral, Daily (early AM), First dose (after last modification) on 09/09/21 at 1300, Nurse to discontinue heparin infusion order and associated bolus at first administration of rivaroxaban using 'order condition met' order source. If patient is eating, administer doses of 15 mg or greater with food. If patient is not eating, still administer dose unless instructed differently by provider., Indications: VTE Prophylaxis, PE-2010 1415 (Given - Provider: Snow Alfonso RN) 0639 (Given - Provider: Sri Le RN) sodium chloride 0.9% bolus 500 mL (COMPLETED) 500 mL, intravenous, Once, On 09/09/21 at 0745, For 1 dose 0825 (New Bag - Provider: Snow Alfonso RN) sodium chloride 0.9% irrigation 30 mL 30 mL, swish & spit, 4 times daily, First dose on Angy 09/07/21 at 2100, Use as mouth rinse for oral care. 1004 (Not Given - Provider: Ramonita Chilel RN - Reason: Patient/family refused)1331 (Not Given - Provider: Ramonita Chilel RN - Reason: Patient/family refused)1759 (Not Given - Provider: Ramonita Chilel RN - Reason: Patient/family refused)2026 (Not Given - Provider: Sri Le RN - Reason: Other) 0825 (Not Given - Provider: Snow Alfonso RN - Reason: Patient/family refused)1229 (Not Given - Provider: Snow Alfonso RN - Reason: Patient/family refused)1633 (Not Given - Provider: Snow Alfonso RN - Reason: Patient/family refused)2044 (Not Given - Provider: Sri Le RN - Reason: Other) 0910 (Not Given - Provider: Snow Alfonso RN - Reason: Patient/family refused)1206 (Not Given - Provider: Snow Alfonso RN - Reason: Patient/family refused)1700 (Due) sucralfate (CARAFATE) tablet 1 g 1 g, oral, 2 times daily, First dose on Sat09/10/21 at 0900 0908 (Given - Provider: Snow Alfonso RN) tacrolimus (PROGRAF) immediate-release capsule 0.5 mg 0.5 mg, oral, Every 48 hours, First dose on Sat09/08/21 at 0900, Avoid grapefruit juice 0859 (Given - Provider: Ramonita Chilel RN) 0908 (Given - Provider: Snow Alfonso RN) voriCONAZOLE (VFEND) tablet 200 mg 200 mg, oral, 2 times daily, First dose on Sat09/07/21 at 2100, Indications: stem Cell Transplant 0859 (Given - Provider: Ramonita Chilel RN)2023 (Given - Provider: Sri Le RN) 08 (Given - Provider: Snow Alfonso RN)2041 (Given - Provider: Sri Le RN) 0908 (Given - Provider: Snow Alfonso RN) Continuous Medication Order 09/08/2021 09/09/2021 09/10/2021 sodium chloride 0.9% infusion () 100 mL/hr, intravenous, Continuous, Starting on Angy 09/07/21 at 2200, For 12 hours 0154 (Rate/Dose Verify - Provider: Marialuisa Starks RN)0357 (Rate/Dose Verify - Provider: Marialuisa Starks RN)0554 (New Bag - Provider: Marialuisa Starks RN)0902 (Stopped - Provider: Ramonita Chilel RN) sodium chloride 0.9% infusion () 75 mL/hr, intravenous, Continuous, Starting on 09/09/21 at 0745, For 8 hours 0825 (New Bag - Provider: Snow Alfonso RN)204 (Stopped - Provider: Sri Le RN) PRN Medication Order 09/08/2021 09/09/2021 09/10/2021 acetaminophen (TYLENOL) tablet 650 mg 650 mg, oral, Every 4 hours PRN, blood product administration, Starting on Sat09/07/21 at 2020, Indications: Prophylaxis Transfusion Reaction acetaminophen (TYLENOL) tablet 650 mg 650 mg, oral, Every 6 hours PRN, fever, Starting on Sat09/07/21 at 2019, Indications: Fever albuterol HFA (PROVENTIL HFA,VENTOLIN HFA,PROAIR HFA) 90 mcg/actuation inhaler 1 puff (CANCELED) 1 puff, inhalation, Every 4 hours PRN (therapist respiratory), wheezing, Starting on Sat09/07/21 at 2020 0924 (Given - Provider: Mala Aiken, BRANDEN) albuterol HFA (PROVENTIL HFA,VENTOLIN HFA,PROAIR HFA) 90 mcg/actuation inhaler 1 puff 1 puff, inhalation, Every 4 hours PRN, wheezing, Starting on Sat09/08/21 at 1045, RN TO ADMINISTER aluminum & magnesium qxgvmddvq-hrbzzahhjuc-qrnj enhydramine-lidocaine (MAGIC MOUTHWASH) suspension 1-1-1 15 mL, swish & swallow, 4 times daily PRN, other, mucositis, Starting on Sat09/07/21 at 2019, Indications: Chemotherapy-Induced Mucositis bacitracin-polymyxin B (POLYSPORIN) 500-10,000 unit/gram ointment tube 1 application 1 application (deactivated), topical, Every 4 hours PRN, wound care, Starting on Sat09/07/21 at 2019, Apply to affected area: other, Indications: Minor Bacterial Skin Infections camphor-menthoL (SARNA) 0.5-0.5 % lotion topical, Every 2 hours PRN, itching, Starting on Sat09/07/21 at 2019, Apply to affected area: other, Indications: Pruritus of Skin cefepime (MAXIPIME) 1,000 mg/10 mL in sterile water (premix) 1,000 mg 1,000 mg, intravenous, at 20 mL/hr, Administer over 30 Minutes, Once as needed, for suspicion of sepsis, Starting on Angy 09/07/21 at 2024, For 1 dose, Administer for temperature of 38.3 C or greater, 38 C for at least 1 hour, or for any acute change in condition with high suspicion of sepsis in the absence of fever (SBP/DBP reduction of 20 mmHg or more, confusion, hypothermia with temp of 35 C, and not receiving any other IV antibiotics., Indications: Neutropenic Fever dextromethorphan-guaiFENes in (ROBITUSSIN-DM) 2-20 mg/mL syrup 10 mL 10 mL, oral, Every 4 hours PRN, cough, Starting on Angy 09/07/21 at 2021, For 11 days, Indications: Cough 1608 (Given - Provider: Ramonita Chilel, RN) 0834 (Given - Provider: Snow Alfonso, BECKI) 0057 (Given - Provider: Sri Le, RN) dextrose (D10W) 10% bolus 250 mL(Linked Group 1) 250 mL, intravenous, at 1,000 mL/hr, Administer over 15 Minutes, Every 15 min PRN, blood glucose less than 70 mg/dL and UNABLE to swallow/take PO glucose/juice., Starting on Angy 09/07/21 at 2047, After treatment for hypoglycemia, recheck BG followed [...] glucose less than 70 mg/dL, Starting on Angy 09/07/21 at 2047, If patient is alert and able to [...] Call MD for each episode of hypoglycemia. [employer] BPM ARCHITECT STATES GLUTOSE-15 CONTAINS GLUCOSE 40% W/W (50% W/V), Indications: hypoglycemic disorder glucagon injection 1 mg 1 mg, intramuscular, Every 30 min PRN, low blood sugar, blood glucose less than 70 mg/dL AND no IV access AND unable to take PO glucose/juice., Starting on Sat09/07/21 at 2047, After Glucagon is administered, position patient on [...] line care, with each use, Starting on Sat09/07/21 at 2019, Do not use with Groshong catheter. Flush volume based on line type, size, and protocol., Indications: Maintain Patency of Indwelling Vascular Catheter loperamide (IMODIUM) capsule 2 mg 2 mg, oral, Every 1 hour PRN, diarrhea, after each liquid stool (ensure that at least one C. diff assay is negative prior to initiating), Starting on Sat09/07/21 at 2019, Total loperamide dose should not exceed 16 mg in 24 hours., Indications: diarrhea magnesium sulfate 4 g/100 mL in water (premix) 4 g 4 g, intravenous, Administer over 90 Minutes, Every 4 hours PRN, magnesium replacement, Starting on Sat09/07/21 at 2024, For magnesium level of 1.2-1.5 mg/dL, Indications: hypomagnesemia magnesium sulfate 6 g in sodium chloride 0.9% 250 mL IVPB 6 g, intravenous, at 131 mL/hr, Administer over 120 Minutes, Every 4 hours PRN, magnesium replacement, Starting on Sat09/07/21 at 2024, For magnesium level less than 1.2 mg/dL and call/notify provider., Indications: hypomagnesemia oxyCODONE-acetaminophen (PERCOCET) 5-325 mg per tablet 1 tablet 1 tablet, oral, Every 4 hours PRN, 1st line for pain, Starting on Angy 09/07/21 at 2044, Indications: Pain 0224 (Given - Provider: Marialuisa Starks, RN)0645 (Given - Provider: Marialuisa Starks, RN)0942 (Given - Provider: Ramonita Chilel, RN) 0134 (Given - Provider: Sri Le, RN) polyvinyl alcohol-povidone (REFRESH CLASSIC) 1.4-0.6 % ophthalmic solution 2 drop 2 drop, each eye, Every 4 hours PRN, dry eyes, Starting on Angy 09/07/21 at 2019, Indications: Dry Eye potassium chloride 40 mEq/520 mL in sodium chloride 0.9% (premix) 40 mEq 40 mEq, intravenous, at 130 mL/hr, Administer over 4 Hours, Every 4 hours PRN, potassium replacement, Starting on Angy 09/07/21 at 2024, HOLD dose and contact prescriber/provider if any of the following conditions are met: 1. Patient is undergoing any form of dialysis. 2. Serum creatinine is GREATER than 1.5 mg/dL 40 mEq X1 dose for potassium less than 2.6 mmol/L, call prescriber for additional orders; 40 mEq X2 doses for potassium 2.6-2.9 mmol/L, stat potassium level after 2nd dose; 40 mEq X2 doses for potassium 3-3.1 mmol/L; 40 mEq X1 dose for potassium 3.2-3.5 mmol/L (may use oral if tolerated)., Indications: hypokalemia potassium chloride ER (KLOR-CON) extended release tablet 40 mEq 40 mEq, oral, Every 4 hours PRN, potassium replacement, Starting on Angy 09/07/21 at 2024, HOLD dose and contact prescriber/provider if any of the following conditions are met: 1. Patient is undergoing any form of dialysis. 2. Serum creatinine is GREATER than 1.5 mg/dL For potassium 3.2-3.5 mmol/L, give 40 mEq X1 dose (may use IV if oral not tolerated). Do not crush, chew, cut, dissolve, open or otherwise manipulate tablet/capsule., Indications: hypokalemia sodium chloride (OCEAN) 0.65 % nasal spray 2 spray 2 spray, each nostril, Every 1 hour PRN, other, dryness, Starting on Angy 09/07/21 at 2019, Indications: Dry Nose sodium chloride 0.9% infusion 30 mL/hr, intravenous, Continuous PRN, KVO for medication administrations, Starting on Sat09/07/21 at 2019 0541 (New Bag - Provider: Sri Le RN) sodium chloride 0.9% IVPB 0-250 mL 0-250 mL, intravenous, As needed, flush tubing for blood product administration, Starting on Sat09/07/21 at 2019, Prime blood tubing and administer amount needed to clear line (usually 50-100 mL) after transfusion complete. sodium phosphate - potassium phosphate (K-PHOS NEUTRAL) tablet 500 mg 500 mg, oral, Daily PRN, phosphorus level 1.5-1.9 mg/dL, Starting on Sat09/07/21 at 2024, Contact provider for phosphorus level less than 1.5 mg/dL. Each tablet contains elemental phosphorus 250 mg (8 mmol), potassium 45 mg (1.1 mEq), and sodium 298 mg (13 mEq)., Indications: hypophosphatemia white petrolatum-mineral oiL (EUCERIN) cream topical, Every 2 hours PRN, dry skin, Starting on Sat09/07/21 at 2019, Apply to affected area: other, Indications: Dry Skin Linked Groups Order Group 1: dextrose (GLUTOSE) 40 % gel 15 gJump to med 15 g, oral, Every 15 min PRN, low blood sugar, blood glucose less than 70 mg/dL, Starting on Sat09/07/21 at 2047, If patient is alert and able to [...] Call MD for each episode of hypoglycemia. [employer] BPM ARCHITECT STATES GLUTOSE-15 CONTAINS GLUCOSE 40% W/W (50% W/V), Indications: hypoglycemic disorder Or dextrose (D10W) 10% bolus 250 mLJump to med 250 mL, intravenous, at 1,000 mL/hr, Administer over 15 Minutes, Every 15 min PRN, blood glucose less than 70 mg/dL and UNABLE to swallow/take PO glucose/juice., Starting on Angy 09/07/21 at 2048, After treatment for hypoglycemia, recheck BG followed [...] Count Last Ordered Date First Ordered Date rivaroxaban (XARELTO) tablet 20 mg 1 2020 albuterol HFA (PROVENTIL HFA ,VENTOLIN HFA,PROAIR HFA) 90 mcg/actuation inhaler 1 puff 1 09/08/2021 acetaminophen (TYLENOL) tablet 650 mg 2 aluminum & magnesium zquvrdezp-fuzxzxixxaz-sfpszroizeutupy-lido aida (MAGIC MOUTHWASH) suspension 1-1-1 1 09/07/2021 bacitracin-polymyxin B (POLY SPORIN) 500-10,000 unit/gram ointment tube 1 application 1 09/07/2021 camphor-menthoL (SARNA) 0.5-0.5 % lotion 1 09/07/2021 cefepime (MAXIPIME) 1,000 mg /10 mL in sterile water (premix) 1,000 mg 1 09/07/2021 dextrose (D10W) 10% bolus 250 mL 1 09/07/20 dextrose (GLUTOSE) 40 % gel 15 g 1 09/07/20 glucagon injection 1 mg 1 09/07/2021 heparin 10 unit/mL flush 20-50 Units 1 08/19 indomethacin (INDOCIN) 50 mg suppository 1 09/07/2021 insulin lispro (HumaLOG, ADM ELOG) 100 unit/mL injection 10 Units 1 09/07/2021 iothalamate meglumine (CONRA Y) 60 % injection 1 09/07/2021 loperamide (IMODIUM) capsule 2 mg 1 021 magnesium sulfate 4 g/100 mL in water (premix) 4 g 1 09/07/2021 magnesium sulfate 6 g in sod ium chloride 0.9% 250 mL IVPB 1 09/07/2021 morphine injection 4 mg 1 09/07/2021 polyvinyl alcohol-povidone ( REFRESH CLASSIC) 1.4-0.6 % ophthalmic solution 2 drop 1 09/07/2021 potassium chloride 40 mEq/52 0 mL in sodium chloride 0.9% (premix) 40 mEq 1 09/07/2021 potassium chloride ER (KLOR- CON) extended release tablet 40 mEq 1 09/07/2021 sodium chloride (OCEAN) 0.65 % nasal spray 2 spray 1 09/07/2021 sodium chloride 0.9% flush 0.5-20 mL 1 08/19 sodium chloride 0.9% irrigation 30 mL 1 sodium chloride 0.9% IVPB 0-250 mL 1 2020 sodium phosphate - potassium phosphate (K-PHOS NEUTRAL) tablet 500 mg 1 09/07/2021 white petrolatum-mineral oiL (EUCERIN) cream 1 09/07/2021 Lab Orders Without Results Count Last Ordered D ate First Ordered Date POCT GLUCOSE DEVICE 9 09/10/2021 09/07/20 ACETAMINOPHEN LEVEL 1 09/07/2021 BILIRUBIN, DIRECT 1 09/07/2021 CREATINE KINASE (CK), TOTAL 1 09/07/2021 CRP (ACUTE PHASE) 1 09/07/2021 ERYTHROCYTE SEDIMENTATION RATE 1 09/07/2021 POCT CREATININE - DEVICE 1 09/07/2021 POCT LACTATE - DEVICE 1 09/07/2021 TACROLIMUS LEVEL, RANDOM 1 09/07/2021 TRIGLYCERIDES 1 09/07/2021 Nursing Count Last Ordered Date First Orde red Date MAINTAIN IV ACCESS 1 09/07/2021 MEASURE HEIGHT AND LENGTH 1 09/07/2021 NURSING COMMUNICATION 2 09/07/2021 WEIGH PATIENT 1 09/07/2021 Consult Count Last Ordered Date First Orde red Date CONSULT TO GASTROENTEROLOGY - BILIARY 1 IP CONSULT TO NUTRITION SERVICES 1 09/07/20 IV Count Last Ordered Date First Orde red Date INSERT PERIPHERAL IV 1 09/07/2021 CORE MEASURES Count Last Ordered Date First Ord ered Date REASON FOR NO VTE PROPHYLAXI S - HOSPITAL ADMISSION - MEDICATIONS 1 09/07/2021 Case Request Count Last Ordered Date First Orde red Date CASE REQUEST GI 1 09/07/2021 ADT Patient Update Count Last Ordered Date Firs t Ordered Date ED IP DECISION TO ADMIT 1 09/07/2021 documented in this encounter Care Teams Teletype Or Varitype Keyboard Operator Relationship Specialty Start Date End Date Kirt Lindsay DO PCP - General Internal Medicine 02/02/21 Josué Del Valle MD PhD Medical Oncologist/Steam Turbine Assembler Medical Oncology 08/26/19 documented as of this encounter
--- OUTSIDE RECORDS SUMMARY | 2024-11-22 10:58 | XMS_ITS | Encounter Summary ---
Author Organization [facility] Address [address] [place] [address] Care Team Providers Care Well Driller Helper Name Role Phone Josué Del Valle MD PhD Unavailable [phone] Kirt Lindsay DO Primary Care Provider [phone] Encounter Details Date Type Department Care Team (Late st Contact Info) Description 11/09/2021 Orders Only [facility] Testing Site - [facility]. 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 Date of Px/chemo/treatment/placement/transfer 11/14/2021 ?? Testing site patient will be sent to: [place], [place] ?? Date testing requested: 11/10/2021 ?? Testing: COVID-19 RNA ?? Does the patient currently work in a healthcare facility with direct patient contact? No ?? Is the patient a resident of a congregate care or living setting? No UTER CLERK documented in this encounter Plan of Treatment Not on file documented as of this encounter Visit Diagnoses Diagnosis Pre-procedure lab exam- Primary Pre-procedural laboratory examination documented in this encounter Care Teams Well Driller Helper Relationship Specialty Start Date End Date Kirt Lindsay DO PCP - General Internal Medicine 02/02/21 Josué Del Valle MD PhD Medical Oncologist/Acoustical Engineer Medical Oncology 08/26/19 documented as of this encounter
--- OUTSIDE RECORDS SUMMARY | 2024-11-22 10:58 | XMS_ITS | Encounter Summary ---
Author Organization [facility] Address [address] [place] [address] Phone Care Team Providers Care Inside Solar Sales Consultant Name Role Phone Josué Del Valle MD PhD Unavailable [phone] Kirt Lindsay DO Primary Care Provider [phone] Reason for Visit * Reason Onset Date Comments Reschedule GI Procedure 10/03/2021 Encounter Details Date Type Department Care Team (Late st Contact Info) Description 10/03/2021 Telephone [facility] Gastroenterology 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 Charlton and he stated he is already rescheduled for November 14. Patient stated he currently has COVID. CHOPPER * Telephone Encounter - Daya Dailey LPN - 10/03/2021 1:04 PM CST ----- Message from Tay Charlton MD sent at 10/03/2021 9:24 AM HEAD CHOPPER ----- Seems like this patient no-showed. I tried calling him, but no answer. He needs to be set up for another ercp with me. dejuan Dsouza CHOPPER documented in this encounter Plan of Treatment Not on file documented as of this encounter Visit Diagnoses Not on filedocumented in this encounter Care Teams Inside Solar Sales Consultant Relationship Specialty Start Date End Date Kirt Lindsay DO PCP - General Internal Medicine 02/02/21 Josué Del Valle MD PhD Medical Oncologist/Fast Food Shift Lead Medical Oncology 08/26/19 documented as of this encounter
--- OUTSIDE RECORDS SUMMARY | 2024-11-22 10:58 | XMS_ITS | Encounter Summary ---
Author Organization [facility] Address [address] [place] [address] Phone Care Team Providers Care Child Study Team Director Name Role Phone Josué Del Valle MD PhD Unavailable [phone] Kirt Lindsay DO Primary Care Provider [phone] Encounter Details Date Type Department Care Team (Late st Contact Info) Description 10/03/2021 Orders Only [facility] Gastroenterology [address] [place] [address] Tay Charlton MD [address] [place], [place] [id number] Social History Tobacco Use Types Packs/Day Years [...] file 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
--- OUTSIDE RECORDS SUMMARY | 2024-11-22 10:58 | XMS_ITS | Encounter Summary ---
Author Organization [facility] Address [address] [place] [address] Phone Care Team Providers Care Housekeeping/Laundry Name Role Phone Josué Del Valle MD PhD Unavailable [phone] Kirt Lindsay DO Primary Care Provider [phone] Reason for Visit * Reason Onset Date Comments results/recommendations 09/22/2021 Encounter Details Date Type Department Care Team (Late st Contact Info) Description 09/22/2021 Telephone [facility] Gastroenterology [address] 8[address] [place] [address] [place] [address] Vee Drake LPN results/recommendations Social [...] file 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 * Telephone Encounter - Vee Drake LPN - 09/22/2021 4:51 PM CDT ----- Message from Vee Drake LPN sent at 09/08/2021 11:42 AM CDT ----- Regarding: xray, labs Lang due 2wks 09/22 Indy Baez RN [facility] Biliary 2 Pool ?? Previous Messages ?? ----- Message ----- From: Shelly Georges NP Sent: 09/08/2021 ??10:15 AM CDT To: Indy Baez RN Subject: f/u ? Hilda Putnam, can you please have him get LFTs and KUB (to check for PD stent migration) in 2 weeks locally. ??Kavin said that he will make final decision regarding when his repeat ERCP is at that time. ??Thank you! ??Have a great weekend! documented in this encounter Plan of Treatment Not on file documented as of this encounter Visit Diagnoses Not on filedocumented in this encounter Care Teams Housekeeping/Laundry Relationship Specialty Start Date End Date Kirt Lindsay DO PCP - General Internal Medicine 02/02/21 Josué Del Valle MD PhD Medical Oncologist/Strategy Consultant Medical Oncology 08/26/19 documented as of this encounter
--- OUTSIDE RECORDS SUMMARY | 2024-11-22 10:58 | XMS_ITS | Encounter Summary ---
Author Organization [facility] Address [address] [place] [address] Phone Care Team Providers Care Burlap Roll Coverer Name Role Phone Josué Del Valle MD PhD Unavailable [phone] Kirt Lindsay DO Primary Care Provider [phone] Encounter Details Date Type Department Care Team (Late st Contact Info) Description 10/03/2021 Orders Only [facility] Gastroenterology [address] [facility] Medical Office Building [address] [place] [address] Tay Charlton MD [address] [place], [place] [id number] Encounter for removal of biliary stent (Primary Dx) Social History Tobacco Use Types [...] on file 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 Covid vaccination yes []?BMI>45, Weight >350 lbs BMI Readings from Last 1 Encounters: 09/07/21 20.81 kg/m?? Wt Readings from Last 1 Encounters: 09/07/21 65.8 kg (145 lb) []? Patient had GI procedure/CPAP clinic/GI clinic <30 days (if Yes, no medical screening questions needed unless new clinical issues in last 30 days) ?? Medical screening questions: BMI/Weight: NA CARDIOVASCULAR: None RESPIRATORY/LUNG: COPD/asthma- If severe (FEV1 < 50% of predicted) or continuous O2 no SC. and None RENAL/LIVER/GI: None BLEEDING/CLOTTING: None NEUROLOGICAL: None ENDOCRINE: None PRIOR PROCEDURE ISSUES: None HYDRO PLANT TECHNICIAN/: NA IMPLANTS.: None Notes: DIABETIC MEDS Y/N: No/NA [x]?Yes- Discuss diabetes medication management with prescribing physician DIALYSIS Y/N: No/NA []?HD- Schedule on non-HD day, see protocol []?PD- Drain PD fluid AM of procedure, if colonoscopy order AB ppx, see protocol PACEMAKER/ICD Y/N: No/NA Device info: Last documented device check: Any shocks since last cards visit (if yes must see cardiology for procedure clearance): BLOOD THINNERS/ANTICOAG/ANTIPLATELET (BESIDES ASA) Medication: Rivaroxaban (Xarelto) Physician contacted for hold order/date sent: Dr. Del Valle Hold order Method sent: Storactive Fax Date hold received: Hold instructions: CONTINUE ASPIRIN INFORMATION REQUESTED []?Imaging: []?Medical Progress Note/H&P []?Medication list []?Other: ?? PATIENT OPTIMIZATION []?Physician reviewing escalation: []?CPAP: Date scheduled: Outcome : []? Location limitations: Scheduling Scheduling location limitations: Tube Lancer needed []? NA Language: POA []? NA Name: SPECIAL PROCEDURE INSTRUCTIONS ? Scheduling Notes Procedure information Date of procedure: 11/14/2021 Time of procedure: 0800 Arrival time: 0700 Location: [facility] Proceduralist: Zoltan Landry Method of instructions: Mailed copy and Verbal [x]?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 ride/dough braker [x]?Post anesthesia restrictions given [x]?NPO Instructions: [x]?Diet Instructions: [x]?Take non-blood thinner prescription meds that morning [x]?Bring med list, photo ID, insurance card, no valuables []?Bring COVID vaccination card (if vaccinated) Bowel Prep Prep prescribed: NA Method of Bowel Prep (RX): NA ?? EE SAMPLER documented in this encounter Plan of Treatment Not on file documented as of this encounter Visit Diagnoses Diagnosis Encounter for removal of biliary stent- Primary documented in this encounter Orders Case Request Count Last Ordered Date First Orde red Date CASE REQUEST GI 1 10/03/2021 documented in this encounter Care Teams Burlap Roll Coverer Relationship Specialty Start Date End Date Kirt Lindsay DO PCP - General Internal Medicine 02/02/21 Josué Del Valle MD PhD Medical Oncologist/Pin Ball Machine Mechanic Medical Oncology 08/26/19 documented as of this encounter
--- OUTSIDE RECORDS SUMMARY | 2024-11-22 10:59 | XMS_ITS | Encounter Summary ---
Author Organization [facility] Address [address] [place] [address] Phone Care Team Providers Care Java Designer Name Role Phone Josué Del Valle MD PhD Unavailable Kirt Lindsay DO Primary Care Provider [phone] Encounter Details Date Type Department Care Team (Late st Contact Info) Description 08/10/2021 Orders Only [facility] [address] [facility] Advanced Medicine 7th [place] [address] [place] [id number] Ave Montejo MD [address] [facility] [address] [place] [address] Type 2 diabetes mellitus with hyperosmolarity 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, with long-term current use of insulin (CMS/HCC) (HCC) (Primary Dx) Social History Tobacco Use Types Packs/Day Years Used Date Smoking Tobacco: Every Day Cigarettes 0.3 39 Started: 1984 Smokeless Tobacco: Never Comments:pt states tried to quit AUDIT-C Answer Date Recorded Q1: How often do you have a drink containing alc ohol? Never 08/01/2021 Average Number of Drinks Not on file 021 Q3: How often do you have si x or more drinks on one occasion? 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
--- OUTSIDE RECORDS SUMMARY | 2024-11-22 10:59 | XMS_ITS | Encounter Summary ---
Author Organization 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 Gender Identity Not on file Sexual Orientation [...] in remission ([facility]) INHALE 1 TO 2 PUFFS BY MOUTH EVERY 4 HOURS NEEDED FOR WHEEZING 8.5 g 3 09/05/20 21 021 Alcohol Prep Pads pads, medicated 05/27/20 21 022 atorvastatin (LIPITOR) 40 mg tabletIndications:AML (acute myeloid leukemia) in remission ([facility]),Type 2 diabetes mellitus with hyperglycemia, with long-term current use of insulin ([facility]),Vzkvq-wammme-rdgn disease ([facility]),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[facility]),Pure hypercholesterolemia Take 1 tablet (40 mg total) by mouth daily 30 tablet 6 01/15/20 20 024 blood glucose diagnostic stripIndications:Type 2 diabetes mellitus with hyperosmolarity 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, with long-term current use of insulin ([facility]) Check blood sugar tid 100 each [...] of insulin ([facility]) TAKE 1 CAPSULE BY MOUTH FOUR [...] mg tabletIndications: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),Wglrh-ahmaan-mgpl disease (HCC) TAKE 1 TABLET BY MOUTH EVERY DAY 90 tablet 06/29/20 21 021 mycophenolate mofetil (CELLCEPT) 500 mg tabletIndications: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),Dfiok-eeugef-gnmm disease (HCC) TAKE 2 TABLETS(1000 MG) BY [...] (four) times a day 5 mL 11 08/09/20 21 022 sucralfate (CARAFATE) 1 gram [...] mcg inhalerIndications: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),Nkwea-pyxfhn-nnom disease (HCC),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HCC) INHALE 1 PUFF BY MOUTH DAILY 60 each 3 05/23/20 21 022 voriCONAZOLE (VFEND) 200 mg tabletIndications:stem Cell Transplant Take 200 mg by mouth 2 (two) times a day 06/18/20 21 022 Xarelto 20 mg tabletIndications: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) TAKE 1 TABLET(20 MG) BY MOUTH DAILY 30 tablet 1 07/11/20 21 021 documented as of this encounter Discharge Disposition Disposition Code Departure Means Destination Discharge to home or self care documented in this encounter Plan of Treatment Not on file documented as of this encounter Procedures Procedure Name Priority Date/Time Associated Diagnosis Comments [place] ERCP BILIARY DUCT IP Routine 09/07/2021 2:34 PM CDT documented in this encounter Results * [place] ERCP Biliary Duct (09/07/2021 2:34 PM CDT) Narrative [id number] - 09/07/2021 2:34 PM CDT The images from this study are not interpreted by Radiology. ??Please refer to the physician's procedure / OR operative note. us Tay Charlton MD IMG FLUOROSCOPY PROCEDURES Final Result Performing Organization Address City/State/[facility] Co id Phone Number [email or web address] documented in this encounter Visit Diagnoses Not on filedocumented in this encounter Care Teams Sharepoint Engineer Relationship Specialty Start Date End Date Kirt Lindsay DO PCP - General Internal Medicine 02/02/21 Josué Del Valle MD PhD Medical Oncologist/Legislators Medical Oncology 08/26/19 documented as of this encounter
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
--- OUTSIDE RECORDS SUMMARY | 2024-11-22 10:59 | XMS_ITS | Encounter Summary ---
Author Organization [facility] Address [address] [place] [address] Phone Care Team Providers Care Electroencephalogram Technologist Name Role Phone Josué Del Valle MD PhD Unavailable [phone] Kirt Lindsay DO Primary Care Provider [phone] Encounter Details Date Type Department Care Team (Late st Contact Info) Description 08/11/2021 Orders Only [facility] Oncology [address] [facility] Advanced Medicine [address]th [place] [address] [place] [address] Ave Montejo MD [address] [facility] [address] [place] [address] Osteopenia, unspecified location (Primary Dx) Social History Tobacco Use Types [...] file 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
--- OUTSIDE RECORDS SUMMARY | 2024-11-22 10:59 | XMS_ITS | Encounter Summary ---
Author Organization [facility] Address [address] [place] [address] Phone Care Team Providers Care Glass Novelty Maker Name Role Phone Josué Del Valle MD PhD Unavailable [phone] Kirt Lindsay DO Primary Care Provider [phone] Encounter Details Date Type Department Care Team (Late st Contact Info) Description 08/22/2021 Telephone [facility] Bone Marrow Transplant [address] [facility] Advanced Medicine 7th [address], [place] [address] Mellisa Rubalcava RN Social History [...] on file 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 Patient is not eligible for TCV Follow up is out of window documented in this encounter Plan of Treatment Not on file documented as of this encounter Visit Diagnoses Not on filedocumented in this encounter Additional Health Concerns Infection Onset Date Last Indicated Resolved Time Exposure, COVID-19 Comment:Negative Added automatically based on COVID19 lab answers indicating exposure risk 08/17/2021 08/17/2021 3:05 AM CDT Rhino/Enterovirus Comment:Droplet - Rhino/Enterovirus 08/17/2021 08/17/2021 10/0 05/2021 3:06 AM CDT documented as of this encounter Care Teams Glass Novelty Maker Relationship Specialty Start Date End Date Kirt Lindsay DO PCP - General Internal Medicine 02/02/21 Josué Del Valle MD PhD Medical Oncologist/Petrologist Medical Oncology 08/26/19 documented as of this encounter
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
--- OUTSIDE RECORDS SUMMARY | 2024-11-22 10:59 | XMS_ITS | Encounter Summary ---
Author Organization [facility] Address [address] [place] [address] Phone Care Team Providers Care Internet Sales Consultant Name Role Phone Josué Del Valle MD PhD Unavailable [phone] Kirt Lindsay DO Primary Care Provider [phone] Encounter Details Date Type Department Care Team (Late st Contact Info) Description 09/08/2021 Orders Only [facility] Gastroenterology [address] [facility] Advanced Medicine 8th [place] [address] [place] [address] Tay Charlton MD [address] [place] [address] History of biliary duct stent placement (Primary Dx) Social History Tobacco Use Types [...] on file 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 Gender Identity Not on file Sexual Orientation Not on file documented as of this encounter Plan of Treatment Scheduled Orders Name Type Priority Associated Diagnoses Orde r Schedule Comprehensive metabolic panel Lab Routine History of biliary duct stent placement Expected: 09/08/2021, Expires: 09/08/2022 documented as of this encounter Visit Diagnoses Diagnosis History of biliary duct stent placement- Primary documented in this encounter Care Teams Internet Sales Consultant Relationship Specialty Start Date End Date Kirt Lindsay DO PCP - General Internal Medicine 02/02/21 Josué Del Valle MD PhD Medical Oncologist/Operater Medical Oncology 08/26/19 documented as of this encounter
--- OUTSIDE RECORDS SUMMARY | 2024-11-22 10:59 | XMS_ITS | Encounter Summary ---
Author Organization [facility] Healthcare Address [address] [place] [address] Care Team Providers Care Concrete Pourer Name Role Phone Josué Del Valle MD PhD Unavailable [phone] Kirt Lindsay DO Primary Care Provider [phone] Encounter Details Date Type Department Care Team (Latest Contact Info) Description 08/17/2021 11:17 AM CDT - 08/19/2021 3:01 PM CDT Hospital Encounter [address] [phone] Josué Del Valle MD PhD [address] [employer], [address] [address] Noemí Moulton MD [address] DIV [employer], [address] [address] Discharge Disposition: Discharge to home or self [...] file Legal Sex Male 10:48 AM HEAD OF HISTORY Gender Identity Not on file Sexual Orientation Not on file documented as of this encounter Last Filed Vital Signs Vital Sign Reading Time Taken Comments Blood Pressure 122/77 08/19/2021 12:03 PM CDT Pulse 74 08/19/2021 12:03 PM CDT Temperature 36.3 ??C (97.3 ??F) 08/19/2021 12:03 PM C DT Respiratory Rate 18 08/19/2021 12:03 PM CDT Oxygen Saturation 95% 08/19/2021 12:03 PM CDT Inhaled Oxygen Concentration - - Weight 65.8 kg (145 lb) 08/18/2021 11:15 PM CDT Height 178 cm (5' 10.08 ) 08/17/2021 11:18 AM CD T Body Mass Index 20.76 08/17/2021 11:18 AM CDT documented in this encounter Discharge Diagnoses Diagnosis Chronic obstructive pulmonary disease with (acute) exacerbation (HCC) - CHRONIC OBSTRUCTIVE PULMONARY DISEASE WITH (ACUTE) EXACERBATION Acute myeloblastic leukemia, in remission (HCC) - ACUTE MYELOBLASTIC LEUKEMIA, IN REMISSION Facrb-oukoie-issd disease, unspecified (HCC) - ZEJXR-FLAWXF-VWPK DISEASE, UNSPECIFIED Fuaqf-isftut-sssr disease, unspecified Stem cells transplant status (HCC) - STEM CELLS TRANSPLANT STATUS Other viral agents as the cause of diseases classified elsewhere - OTHER VIRAL AGENTS THE CAUSE OF DISEASES CLASSIFIED ELSEWHERE Unspecified enterovirus as the cause of diseases classified elsewhere - UNSPECIFIED ENTEROVIRUS THE CAUSE OF DISEASES CLASSIFIED ELSEWHERE Type 2 diabetes mellitus with diabetic cataract (HCC) - TYPE 2 DIABETES MELLITUS WITH DIABETIC CATARACT Type II or unspecified type diabetes mellitus with ophthalmic manifestations, not stated as uncontrolled Vitamin D deficiency, unspecified - VITAMIN D DEFICIENCY, UNSPECIFIED Nicotine dependence, cigarettes, uncomplicated - NICOTINE DEPENDENCE, CIGARETTES, UNCOMPLICATED Combined forms of age-related cataract, bilateral - COMBINED FORMS OF AGE- RELATED CATARACT, BILATERAL Venous insufficiency (chronic) (peripheral) - VENOUS INSUFFICIENCY (CHRONIC) (PERIPHERAL) Unspecified venous (peripheral) insufficiency FPC (current) use of 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 - MINERAL MIXER (CURRENT) USE OF ANTICOAGULANTS Long-term (current) use of 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 long term care social worker (current) use of insulin (HCC) - MINERAL MIXER (CURRENT) USE OF INSULIN Personal history of other endocrine, nutritional and metabolic disease - PERSONAL HISTORY OF OTHER ENDOCRINE, NUTRITIONAL AND METABOLIC DISEASE Personal history of pulmonary embolism - PERSONAL HISTORY OF PULMONARY EMBOLISM Personal history of other venous thrombosis and embolism - PERSONAL HISTORY OF OTHER VENOUS THROMBOSIS AND EMBOLISM Personal history of pneumonia (recurrent) - PERSONAL HISTORY OF PNEUMONIA (RECURRENT) Other halfway (current) drug therapy - OTHER CARE HOME (CURRENT) DRUG THERAPY Cataract extraction status, right eye - CATARACT EXTRACTION STATUS, RIGHT EYE Cataract extraction status, left eye - CATARACT EXTRACTION STATUS, LEFT EYE Presence of intraocular lens - PRESENCE OF INTRAOCULAR LENS Allergy status to other drugs, medicaments and biological substances - ALLERGY STATUS TO OTHER DRUGS, MEDICAMENTS AND BIOLOGICAL SUBSTANCES Personal history of antineoplastic chemotherapy - PERSONAL HISTORY OF ANTINEOPLASTIC CHEMOTHERAPY documented in this encounter Discharge Summaries * Anjel Muniz MD - 08/19/2021 3:01 PM CDT Inpatient Discharge Summary BRIEF OVERVIEW Admitting Provider: Noemí Moulton MD Discharge Provider: Josué Del Valle MD PhD Primary Care Physician at Discharge: Kirt Lindsay DO [phone] Admission Date: 08/17/2021 Discharge Date: 08/19/2021 Admission Location: [facility] Problems/Diagnoses: Active Problems: Hkuae-sqejld-syqm disease (HCC) AML (acute myeloid leukemia) in remission ([facility]/HCC) (HCC) Type 2 diabetes mellitus (HCC) Vitamin D deficiency COPD with exacerbation (CMS/HCC) (HCC) DVT (deep venous thrombosis) (CMS/HCC) (HCC) Combined form of senile cataract of both eyes Resolved Problems: No resolved hospital problems. 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 His cough is productive of clear foamy non bloody sputum. At baseline he requires 3 lpm of O2 via NC. When he called theclinic he reported needing 5 lpm for comfort as he was increasingly more SOB. No PND, no worsening in his chronic LE edema, no chest pain No contact COVID19 Patient completed his 2 shots of Pfizer covid19 vaccination in 01/2021, and had his booster dose scheduled with El soon. ?? No skin rash or joint pain. No nausea, vomiting, or change in BMs ?? History has been obtained from the patient, and independent review of our [facility] in [facility].Above is a summary of above sources. In addition, a VENKATA message was independently reviewed from theaccepting physician. Above is a summary of above sources. Hospital Course: Combined form of senile cataract of both eyes S/p R eye cataract on 08/01, and L in 04/2021 Continue ofloxacin eye gtt DVT (deep venous thrombosis) 2 events of PE/DVT and DVT in 2012 and 2017 Resume home Xeralto COPD with exacerbation On albuterol prn, trelegy Ellipta and LTOT at 3 lpm via NC at night and during exertion at home RPP is + rhino/entero virus BCx neg UA neg Afebrile here Started 5 days pred 08/17 - one more dose to complete after DC DuaNeb Azithromycin and cefepime 08/17 - 08/19/2021 Mucinex Last TTE from 11/2019 is unremarkable, pt denies any PND, chest pain, + BL le swelling is chronic and probably related to venous insufficiency==> no indication to repeat given improvement in his breathing with the current regimen Much better now Back to baseline O2, on RA at rest and 2-3 lpm at night and during exertion Vitamin D deficiency Apparently has been on 50 units/weeks for a while - Switched to maintenance and check level Type 2 diabetes mellitus Resume home insulin regimen Will increase his long acting and short acting insulin given worsening glycemia in setting of steroids AML (acute myeloid leukemia) in remission S/p Busulfan and Cytoxan on the AMD allogeneic study with his sister, 08/27 match; with day 0 on 11/09/2009 after induction with 7+3 and HiDAC consolidation x3. Followed by Decitabine maintenance on the CALGB 35776 protocol and relapsed disease, status post AMD/[facility]. 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 The cardiac and mediastinal contours are normal. There is linear atelectasis/scarring at the right lung apex, otherwise the lungs are clear bilaterally without focal consolidation. The lungs are hyperinflated with flattening of the diaphragm. No pleural effusion or pneumothorax. Dictated by: Chad Benitez M.D. The radiology attending physician has personally reviewed this study, and had reviewed and/or edited this written report and agrees with it. Electronically signed by: Derrell Ochoa M.D. Dexa Axial Skeleton Bone Density 1 or 2 Site Result Date: 08/16/2021 Narrative: Patient Name: Brady Jones Date of : 1965 Date of scan: 08/11/2021 Bone mineral density was performed on a [employer] Discovery Densitometer. Based on machine cross-calibration and precision studies the least significant changes of this densitometer is 0.024 g/cm2 at the spine,0.020 g/cm2 at the total proximal femur, and 0.014g/cm2 at the forearm. HISTORY: This is a 55 y.o. male with a history of bone marrow transplant, low bone mass and vitamin D deficiency. He reports that he has been smoking cigarettes. He started smoking about 35 years ago. He has been smoking about 0.25 packs per day. He has never used smokeless tobacco. He is currently on treatment with vitamin D and 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; and was previously treated with glucocorticoids. INDICATIONS: Historyof glucocorticoids use, vitamin D deficiency and history of low bone mass. FINDINGS: BONE MINERAL DENSITY OF THE LUMBAR SPINE Bone Mineral Density (BMD) of the lumbar spine was measured from L1-L4 and the average density was calculated to be 1.067 gm/cm2. This corresponds to a T-score (standard deviations from the mean of young adults) of -0.2. When compared to the previous study of 08/07/2019 there has been a 0.025 gm/cm (2.4%) increase in bone density that is considered significant. BONE MINERAL DENSITY OF THE PROXIMAL FEMUR Bone Mineral Density (BMD) of the left hip total was found to be 0.713 gm/cm2. This corresponds to a T-score standard deviations from the mean of young adults of -2.1.Femoral neck is 0.604 gm/cm2 with a T-score (standard deviations from the mean of young adults) of -2.4. When compared to the previous study of 08/07/2019 there has been a -0.049 gm/cm (-6.4%) decrease in bone density that is considered significant. SUMMARY: Bone mineral density shows evidence of low bone mass at the proximal femur and moderately increased fracture risk (Osteopenia). There is a significant increase noted in the spine and a significant decrease noted in the hip since the previousexam. ADDITIONAL COMMENTS: Postmenopausal Women and Men Over 50: Diagnostic criteria: Osteoporosis:BMD at or below -2.5 T-score; Osteopenia (low bone mass): BMD between -1.0 and -2.5 T-score. If thepatient has a history of a fragility fracture, a fracture that occurred with trauma equivalent to afall from a standing position or less, then the diagnosis is osteoporosis regardless of bone density. The history and data sections of the bone mineral density scan were prepared by Melody Giron (R)([facility]) who is accredited by the International Society of Clinical Densitometry. The overall patient assessment and scan interpretation were performed by Justine Banks M.D. who is certified by the International Society of Clinical Densitometry. [id number] Serial CBC, CMP, and coagulation profile Microbiology: Collected Updated Procedure Result Status 08/17/2021 1423 08/21/2021 1600 Blood culture Blood Forearm, left [[id number]] Blood from Forearm, left Final result Component Value Report Final Report: No growth 08/17/2021 1415 08/17/2021 1447 Urinalysis reflex to microscopic and culture Urine, clean voided [[id number]] (Abnormal) Urine, clean voided Final result Component Value Color, ur Yellow Clarity, ur Clear Specific gravity, ur 1.012 pH, urine 6 Protein, ur ql Negative Glucose, ur ql Negative Ketones, ur Negative Bilirubin, ur Negative Blood, ur Negative Urobilinogen, ur 4.0??Abnormal?? Nitrite, ur Negative Leukocyte esterase, ur Negative UA reflex comment Reflex conditions for microscopic UA and culture not met. 08/17/2021 1415 08/21/2021 1600 Blood culture Blood Forearm, right [[id number]] Blood from Forearm, right Final result Component Value Report Final Report: No growth 08/17/2021 1145 08/17/2021 1416 Respiratory pathogen panel Nasopharyngeal [[id number]] (Abnormal) Nasopharyngeal Final result Component Value Influenza A RNA Not Detected Influenza B RNA Not Detected RSV RNA Not Detected COVID-19 RNA Not Detected Coronavirus 229E RNA Not Detected Coronavirus HKU1 RNA Not Detected Coronavirus NL63 RNA Not Detected Coronavirus OC43 RNA Not Detected Adenovirus DNA Not Detected Metapneumovirus RNA Not Detected Rhinovirus/Enterovirus RNA Detected??Abnormal?? Parainfluenza 1 RNA Not Detected Parainfluenza 2 RNA Not Detected Parainfluenza 3 RNA Not Detected Parainfluenza 4 RNA Not Detected B. pertussis DNA Not Detected B. parapertussis DNA Not Detected C. pneumoniae DNA Not Detected M. pneumoniae DNA Not Detected Discharge Details Physical Exam at Discharge: Discharge Condition: stable Pulse: 74 Resp: 18 BP: 122/77 Temp: 36.3 ??C (97.3 ??F) Weight: 65.8 kg (145 lb) Pertinent Exam Findings at Discharge: please refer to the progress note from 08/19/2021 Discharge Disposition: Discharge to home or self care Code Status at Discharge: Prior Discharge Instructions: Call right away if you have: - A fever of 101F or higher - Shaking chills - Do NOT take Tylenol, aspirin, or ibuprofen unless your doctor tells you to - A hard time breathing - Significant pain you did not have before, including strong headaches * Bleeding that does not stop after a few minutes - Blood in your urine, black or bloody stool, or nosebleeds - Nausea and vomiting and cannot keep fluids or medicine down - Feeling confused or very sleepy Call within 24 hours for: *Pain, redness or swelling around your IV catheter *Rash or darkening of your skin *Watery diarrhea, stomach cramps, or nausea that doesn't go away Special Instructions: *Drink at least 64 ounces of decaffeinated liquid every day. *Take your temperature 2 times per day. *Bring bottles of all medicines you are taking with you to all appointments. Follow-up: As scheduled below Saturday through Saturday, 8 AM to 4:30 PM, call or and ask for a member of your doctor???s team Discharge Medications: Current Medications TAKE these medications [...] Device 3 (three) times a day dextromethorphan-guaiFENesin 2-20 mg/mL liquid Take 10 mL by mouth every 4 (four) hours as needed for cough For: cough Commonly known as: ROBITUSSIN-DM furosemide 20 mg tablet Take 1 tablet [...] nightly Nightly and PRN For: trouble breathing prednisoLONE acetate 1 % ophthalmic suspension Administer 1 drop into the left eye 4 (four) times a day Commonly known as: PRED FORTE tacrolimus 0.5 mg immediate-release capsule TAKE 1 CAPSULE BY MOUTH EVERY OTHER DAY Commonly known as: PROGRAF Trelegy Ellipta 100-62.5-25 mcg inhaler INHALE 1 PUFF BY MOUTH DAILY Generic drug: yuhrawrglfo-uugollwnh-rcfeiqrh voriCONAZOLE 200 mg tablet Take 200 mg by mouth 2 (two) times a day For: stem Cell Transplant Commonly known as: VFEND Xarelto 20 mg tablet TAKE 1 TABLET(20 MG) BY MOUTH DAILY Generic drug: rivaroxaban ASK your doctor about these medications predniSONE 20 mg tablet Take 2 tablets (40 mg) by mouth daily for 2 doses For: worsening chronic obstructive pulmonary disease Commonly known as: DELTASONE Ask about: Should I take this medication? Outpatient Follow-Up: Future Appointments Date Time Provider Department Center 09/04/2021 1:30 PM Ravi Hughes MD [facility] 6 OP 09/08/2021 9:00 AM LAB, CAM 7 ONC ONC LAB [facility]7 [facility] [facility] 09/08/2021 9:40 AM Narcisa Kilgore NP BMT CAM 7 BMT 09/08/2021 11:[address] EML CAM 13B [facility] EML 10/19/2021 11:00 AM Quiana Rodriguez, RN EML CAM 13B [facility] [facility] E[facility] 11/02/2021 1:00 PM LAB, CAM 7 ONC ONC LAB CAM7 [facility] 11/24/2021 10:30 AM LAB, CAM 7 ONC ONC LAB CAM7 [place] [facility] 11/24/2021 11:20 AM Narcisa Kilgore NP BMT CAM 7 BMT 11/24/2021 12:[address] Montejo MD ONC CAM7 [facility] Oncology 11/24/2021 1:00 PM POD 6 CAM ONC INF CAM7 [facility] [facility] INF Contact Information for Follow-ups Kirt Lindsay DO Specialty: Internal Medicine Relationship: PCP - General [address] [address] Next Steps: Follow up Anjel Muniz MD 08/30/2021 1:54 PM documented in this encounter Medications at Time of Discharge omega-3 fatty acids (LOVAZA) 1 gram capsule Take 1 capsule (1 g total) by mouth daily 1 oxygen Administer 2 L/min into each nostril nightly Nightly and PRN dextromethorphan-guaiFEN esin (ROBITUSSIN-DM) 2-20 mg/mL liquidIndications:Cough Take 10 mL by mouth every 4 (four) hours as needed for cough 120 mL 1 09/18/20 21 predniSONE (DELTASONE) 20 mg tabletIndications:Acutel y Deteriorating COPD Take 2 tablets (40 mg) by mouth daily for 2 doses 4 tablet 1 08/22/20 21 acyclovir (ZOVIRAX) 400 mg tabletIndications:AML (acute myeloid leukemia) in remission ([facility]) TAKE 1 TABLET(400 MG) BY MOUTH EVERY 8 HOURS 270 tablet 1 1 11/30/19 22 albuterol HFA (PROVENTIL HFA,VENTOLIN HFA,PROAIR HFA) 90 mcg/actuation inhalerIndications:AML (acute myeloid leukemia) in remission ([facility]) INHALE 1 TO 2 PUFFS BY MOUTH EVERY 4 HOURS NEEDED FOR WHEEZING 8.5 g 3 1 09/05/20 21 Alcohol Prep Pads pads, medicated 1 01/08/20 22 atorvastatin (LIPITOR) 40 mg tabletIndications:AML (acute myeloid leukemia) in remission ([facility]),Type 2 diabetes mellitus with hyperglycemia, with long-term current use of insulin ([facility]),Kbzrk-gquzlo-znli disease (HCC),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[facility]),Pure hypercholesterolemia Take 1 tablet (40 mg total) by mouth daily 30 tablet 6 0 07/30/20 24 blood glucose diagnostic stripIndications:Type 2 diabetes mellitus with hyperosmolarity 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, with long-term current use of insulin ([facility]) Check blood sugar tid 100 each 4 0 01/08/20 22 blood-glucose meter miscIndications:Type 2 diabetes mellitus with hyperosmolarity 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, with long-term current use of insulin ([facility]) 1 Device 3 (three) times a day 1 each 9 02/20/20 24 cholecalciferol (VITAMIN D-3) 2000 unit capsule Take 1 capsule (2,000 Units total) by mouth daily 30 capsule 11 1 08/21/20 21 furosemide (LASIX) 20 mg tabletIndications:Type 2 diabetes mellitus with hyperosmolarity 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, with long-term current use of insulin ([facility]) Take 1 tablet (20 mg total) by mouth daily As needed. 30 tablet 0 02/20/20 24 gabapentin (NEURONTIN) 300 mg capsuleIndications:Type 2 diabetes mellitus with hyperosmolarity 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, with long-term current use of insulin ([facility]) TAKE 1 CAPSULE BY MOUTH FOUR TIMES DAILY 120 capsule 3 1 12/07/19 22 insulin glargine (LANTUS, BASAGLAR) 100 unit/mL (3 mL) pen for injectionIndications:Typ e 2 diabetes mellitus with hyperosmolarity 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, with long-term current use of insulin ([facility]) INJECT 15 UNITS NIGHTLY SUB-Q. 1 pen 5 1 02/20/20 24 insulin lispro (HumaLOG, ADMELOG) 100 unit/mL pen for injectionIndications:Typ e 2 diabetes mellitus with hyperosmolarity 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, with long-term current use of insulin ([facility]) INJECT 5-10 UNITS TID WITH MEALS PLUS SLIDING SCALE. TDD OF 35 UNITS. 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),Xotmd-tsyiox-ixnx disease (HCC) TAKE 1 TABLET BY MOUTH EVERY DAY 90 tablet 1 09/25/20 21 mycophenolate mofetil (CELLCEPT) 500 mg tabletIndications: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),Onkzt-dtapfm-wlxe disease (HCC) TAKE 2 TABLETS(1000 MG) BY MOUTH TWICE DAILY 180 tablet 3 1 04/11/20 22 ofloxacin (OCUFLOX) 0.3 % ophthalmic solution Administer 1 drop into the left eye 4 (four) times a day 5 mL 11 1 02/15/20 22 prednisoLONE acetate (PRED FORTE) 1 % ophthalmic suspension Administer 1 drop into the left eye 4 (four) times a day 5 mL 01/08/20 22 tacrolimus (PROGRAF) 0.5 mg immediate-release capsuleIndications:AML (acute myeloid leukemia) in remission ([facility]) TAKE 1 CAPSULE BY MOUTH EVERY OTHER DAY 15 capsule 3 12/07/19 22 Trelegy Ellipta 100-62.5-25 mcg inhalerIndications:AML (acute myeloid leukemia) in remission ([facility]),Ndkus-jugwsy-nqzw disease (HCC),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[facility]) INHALE 1 PUFF BY MOUTH DAILY 60 each 3 1 02/14/20 22 voriCONAZOLE (VFEND) 200 mg tabletIndications:stem Cell Transplant Take 200 mg by mouth 2 (two) times a day 1 12/13/19 22 Xarelto 20 mg tabletIndications:AML (acute myeloid leukemia) in remission ([facility]) TAKE 1 TABLET(20 MG) BY MOUTH DAILY 30 tablet 1 09/11/20 21 documented as of this encounter Ordered Prescriptions Prescription Sig Dispense Quantity Refills Last Filled Start Date End Date predniSONE (DELTASONE) 20 mg tabletIndications:A cutely Deteriorating COPD Take 2 tablets (40 mg) by mouth daily for 2 doses 4 tablet 08/20/2021 1 dextromethorphan-gu aiFENesin (ROBITUSSIN-DM) 2-20 mg/mL liquidIndications:C ough Take 10 mL by mouth every 4 (four) hours as needed for cough 120 mL 08/19/2021 1 cholecalciferol (VITAMIN D-3) 2000 unit capsule Take 1 capsule (2,000 Units total) by mouth daily 30 capsule 11 08/20/2021 1 documented in this encounter Discharge Disposition Disposition Code Departure Means Destination Discharge to home or self care documented in this encounter Progress Notes * Brendan Kirby MD PhD - 08/19/2021 2:46 PM CDT BMT Daily Progress Note Subjective Continues to report improvement in his SOB, cough, and wheezing. On RA currently. No significant events overnight Active Treatment & Therapy Plans for [facility] Oncology Chemotherapy Treatment: [id number] - RSH - Heme/BMT - INCB 190716 - EAP Ruxolitinib for GVHD (On Hold) Current day: Day 1, Cycle 3 and 4 (Planned for 01/25/2020) Following planned day: Day 1, Cycle 5-6 (Planned for 03/21/2020) Specialty Infusion Treatment: ZOLEDRONIC ACID (RECLAST) INFUSION Current treatment: Treatment 1 (Planned for 11/24/2021) Allergies Allergen Reactions ??? Adhesive Redness burn Current Facility-Administered Medications: ??? acetaminophen (TYLENOL) tablet 650 mg, 650 mg, oral, Q4H PRN, Anjel Muniz MD ??? acetaminophen (TYLENOL) tablet 650 mg, 650 mg, oral, Q6H PRN, Anjel Muniz MD ??? acyclovir (ZOVIRAX) tablet 400 mg, 400 mg, oral, BID, Anjel Muniz MD, 400 mg at 08/19/21 0903 ??? albuterol 2.5 mg/0.5 mL nebulizer solution 2.5 mg, 2.5 mg, nebulization, Q6H ROSA MARIA (RT), 2.5 mg at 08/19/21 1234 AND ipratropium (ATROVENT) 0.02 % nebulizer solution 0.5 mg, 0.5 mg, nebulization, Q6H ROSA MARIA (RT), Anjel Muniz MD, 0.5 mg at 08/19/21 1234 ? ? aluminum & magnesium ibunoztfn-sdcscetwabw-npgcqcvuiqjgxfl-lidocaine (MAGIC MOUTHWASH) suspension 1-1-1, 15 mL, swish & swallow, QID PRN, Anjel Muniz MD ??? atorvastatin (LIPITOR) tablet 40 mg, 40 mg, oral, Daily, Anjel Muniz MD, 40 mg at 08/19/21 0903 ??? azithromycin (ZITHROMAX) 500 mg/255 mL in sodium chloride 0.9% (premix) 500 mg, 500 mg, intravenous, Q24H [facility] CENTERFlavio Hanan Mehemed, MD, Stopped at 08/19/21 1009 ??? bacitracin-polymyxin B (POLYSPORIN) 500-10,000 unit/gram ointment tube 1 application, 1 application, topical, Q4H PRN, Anjel Muniz MD ??? camphor-menthoL (SARNA) 0.5-0.5 % lotion, , topical, Q2H PRN, Anjel Muniz MD ??? cefepime (MAXIPIME) 1,000 mg/10 mL in sterile water (premix) 1,000 mg, 1,000 mg, intravenous, Once PRN, Anjel Muniz MD ??? cefepime (MAXIPIME) 1,000 mg/10 mL in sterile water (premix) 1,000 mg, 1,000 mg, intravenous, Q8H ROSA MARIA, Anjel Muniz MD, Stopped at 08/19/21 0628 ??? cholecalciferol (VITAMIN D-3) capsule 2,000 Units, 2,000 Units, oral, Daily, Anjel Muniz MD, 2,000 Units at 08/19/21 0903 ??? dextromethorphan-guaiFENesin (ROBITUSSIN-DM) 2-20 mg/mL syrup 10 mL, 10 mL, oral, Q4H PRN, Anjel Muniz MD, 10 mL at 08/17/21 1503 ??? dextrose (GLUTOSE) 40 % gel 15 g, 15 g, oral, Q15 Min PRN OR dextrose (D10W) 10% bolus 250 mL, 250 mL, intravenous, Q15 Min PRN, Anjel Muniz MD ??? atwpvjsyceb-khjcupvnc-derwidvb (TRELEGY ELLIPTA) 100-62.5-25 mcg inhaler 1 puff, 1 puff, inhalation, Daily (RT), Anjel Muniz MD, 1 puff at 08/19/21 1235 ??? gabapentin (NEURONTIN) capsule 400 mg, 400 mg, oral, TID, Anjel Muniz MD, 400 mg at 08/19/21 0903 ??? glucagon injection 1 mg, 1 mg, intramuscular, Q30 Min PRN, Anjel Muniz MD ??? heparin 10 unit/mL flush 20-50 Units, 2-5 mL, intra-catheter, PRN, Anjel Muniz MD ??? heparin 10 unit/mL flush 50 Units, 5 mL, intra-catheter, Q12H ROSA MARIA, Anjel Muniz MD ??? insulin glargine (LANTUS, SEMGLEE) 100 unit/mL injection 15 Units, 15 Units, subcutaneous, BID,Anjel Muniz MD, 15 Units at 08/19/21 0911 ??? insulin lispro (HumaLOG, ADMELOG) 100 unit/mL injection 0-5 Units, 0-5 Units, subcutaneous, QID(AC & HS), Anjel Muniz MD, 2 Units at 08/19/21 1219 ??? insulin lispro (HumaLOG, ADMELOG) 100 unit/mL injection 10 Units, 10 Units, subcutaneous, TID with meals, Anjel Muniz MD, 10 Units at 08/19/21 1219 ??? loperamide (IMODIUM) capsule 2 mg, 2 mg, oral, Q1H PRN, Anjel Muniz MD ??? magnesium sulfate 4 g/100 mL in water (premix) 4 g, 4 g, intravenous, Q4H PRN, Anjel Muniz MD ??? magnesium sulfate 6 g in sodium chloride 0.9% 250 mL IVPB, 6 g, intravenous, Q4H PRN, Anjel Muniz MD ??? montelukast (SINGULAIR) tablet 10 mg, 10 mg, oral, Daily, Anjel Muniz MD, 10 mg at 08/19/21902 ??? mycophenolate mofetil (CELLCEPT) tablet 1,000 mg, 1,000 mg, oral, BID, Anjel Muniz MD, 1,000 mg at 08/19/21902 ??? nicotine (NICODERM CQ) 14 mg patch 24 hour 1 patch, 1 patch, transdermal, Daily, Mihcael Perrin MD, Last Rate: 0 mL/hr at 08/18/21 2309, 1 patch at 08/18/212309 ??? ofloxacin (OCUFLOX) 0.3 % ophthalmic solution 1 drop, 1 drop, left eye, QID, Anjel Muniz MD, 1 drop at 08/19/21 1220 ??? omega-3 fatty acids (LOVAZA) capsule 1 g, 1 g, oral, BID, Anjel Muniz MD, 1 g at 08/19/21902 ??? polyvinyl alcohol-povidone (REFRESH CLASSIC) 1.4-0.6 % ophthalmic solution 2 drop, 2 drop, eacheye, Q4H PRN, Anjel Muniz MD ??? potassium chloride 40 mEq/520 mL in sodium chloride 0.9% (premix) 40 mEq, 40 mEq, intravenous, Q4H PRN, Anjel Muniz MD ??? potassium chloride ER (KLOR-CON) extended release tablet 40 mEq, 40 mEq, oral, Q4H PRN, Anjel Muniz MD ??? prednisoLONE acetate (PRED FORTE) 1 % ophthalmic suspension 1 drop, 1 drop, left eye, QID, Anjel Muniz MD, 1 drop at 08/19/21 1220 ??? predniSONE (DELTASONE) tablet 40 mg, 40 mg, oral, Daily, Anjel Muniz MD, 40 mg at 08/19/21 09 ??? rivaroxaban (XARELTO) tablet 20 mg, 20 mg, oral, Daily - 0600, Anjel Muniz MD, 20 mgat 08/19/21 0558 ??? sodium chloride (OCEAN) 0.65 % nasal spray 2 spray, 2 spray, each nostril, Q1H PRN, Anjel Muniz MD ??? sodium chloride 0.9% flush 0.5-20 mL, 0.5-20 mL, intra-catheter, Q8H ROSA MARIA, Anjel Muniz MD, 10 mL at 08/19/21 0559 ??? sodium chloride 0.9% flush 0.5-20 mL, 0.5-20 mL, intra-catheter, PRN, Anjel Muniz MD ??? sodium chloride 0.9% infusion, 30 mL/hr, intravenous, Continuous PRN, Anjel Muniz MD ? ? sodium chloride 0.9% irrigation 30 mL, 30 mL, swish & spit, QID, Anjel Muniz MD ??? sodium chloride 0.9% IVPB 0-250 mL, 0-250 mL, intravenous, PRN, Anjel Muniz MD ??? sodium phosphate - potassium phosphate (K-PHOS NEUTRAL) tablet 500 mg, 500 mg, oral, Daily PRN,Anjel Muniz MD ??? tacrolimus (PROGRAF) immediate-release capsule 0.5 mg, 0.5 mg, oral, Q48H, Anjel Muniz MD, 0.5 mg at 08/19/21 1404 ??? voriCONAZOLE (VFEND) tablet 200 mg, 200 mg, oral, BID, Anjel Muniz MD, 200 mg at 08/19/21 0903 ??? white petrolatum-mineral oiL (EUCERIN) cream, , topical, Q2H PRN, Anjel Muniz MD Objective Vitals: 24hr Min/Max: Temp Min: 36.3 ??C (97.3 ??F) Max: 36.8 ??C (98.2 ??F) Pulse Min: 53 Max: 74 BP Min: 122/77 Max: 144/65 Resp Min: 16 Max: 18 SpO2 Min: 93 % Max: 100 % Most Recent : Vitals: 08/19/21 1203 BP: 122/77 BP Location: Right arm Patient Position: Sitting Pulse: 74 Resp: 18 Temp: 36.3 ??C (97.3 ??F) TempSrc: Oral SpO2: 95% Weight: I/O last 2 completed shifts: In: 1214 [P.O.:800; I.V.:394; IV Piggyback:20] Out: 2200 [Urine:2200] Physical exam: General: Chronically ill appearing, NAD, appears stated age Skin: no rash, normal color and turgor HEENT: normocephalic, PERRLA, EOMI, no mucositis. + poor dentition CV: RRR. No m/g/r, normal S1S2 Lungs: Rhonchi and crackles BL --improved from yesetrday, no w/r/r, unlabored respiratory effort Abdomen: Soft, NTND, +BS Extremities: Atraumatic, acyanotic, no TTP, symmetrical + edema Neuro: AAOx3, CN II-XI grossly intact, normal speech Psych: Appropriate mood, affect, and judgement. Lab/Radiology/Diagnostic Review: I have reviewed the laboratory, radiologic, and diagnostic results. CBC: Recent Labs Lab Units 08/19/21 0033 WBC K/cumm 8.0 HEMOGLOBIN g/dL 11.9* HEMATOCRIT % 34.0* MCV fL 98.6* MCH pg 34.5* MCHC g/dL 35.0 RDW CV % 14.6 RDWSD fL 53.2* MPV fL 10.7 NEUTROS ABS K/cumm 6.4 CMP: Recent Labs Lab Units 08/19/21 1205 08/19/21 0706 08/19/21 0033 08/17/21 1458 08/17/21 1415 SODIUM mmol/L -- -- 142 < > 136 POTASSIUM PLASMA mmol/L -- -- 3.9 < > See Comment CO2 mmol/L -- -- 28 < > 28 BUN SERUM mg/dL -- -- 21 < > 11 GLUCOSE mg/dL -- -- 239* < > 149 POC GLUCOSE MONITOR mg/dL 209* < > -- < > -- CREATININE mg/dL -- -- 0.92 < > 0.82 CALCIUM mg/dL -- -- 8.8 < > 8.6 CHLORIDE mmol/L -- -- 103 < > 100 ALBUMIN g/dL -- -- -- -- 3.7 AST Units/L -- -- -- -- See Comment ALT Units/L -- -- -- -- See Comment ALK PHOS Units/L -- -- -- -- 169* BILIRUBIN TOTAL mg/dL -- -- -- -- 0.5 TOTAL PROTEIN g/dL -- -- -- -- 7.6 ANIONGAP mmol/L -- -- 11 < > 8 < > = values in this interval not displayed. PT: PTT: Recent Labs Lab Units 08/17/21 1721 APTT sec 34 Assessment/Plan Combined form of senile cataract of both eyes Assessment & Plan S/p R eye cataract on 08/01, and L in 04/2021 Continue ofloxacin DVT (deep venous thrombosis) ([facility]) ([facility]) Assessment & Plan 2 events of PE/DVT and only DVT in 2012 and 2017 Resume home Xeralto COPD with exacerbation ([facility]) ([facility]) Assessment & Plan On albuterol prn, trelegy Ellipta and LTOT [...] 2-3 lpm at night and during exertion Vitamin D deficiency Assessment & Plan Apparently has been on 50 units/weeks for a while - will switch to maintenance and check level Type 2 diabetes mellitus ([facility]) Assessment & Plan Resume home insulin regimen Will increase his long acting and short acting insulin given worsening glycemia in setting of steroids AML (acute myeloid leukemia) in remission ([facility]) ([facility] Assessment & Plan S/p Busulfan and Cytoxan on the [facility] allogeneic study with his sister, 08/27 match; with day 0 on 11/09/2009 after induction with 7+3 and HiDAC consolidation x3. Followed by Decitabine maintenance on the CALGB 10936 protocol and relapsed disease, status post AMD/MEC. 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 On RA currently. No significant events overnight Active Treatment & Therapy Plans for Brady Jones Oncology Chemotherapy Treatment: [id number] - [facility] - Heme/BMT - INCB 801051 - EAP Ruxolitinib for GVHD (On Hold) Current day: Day 1, Cycle 3 and 4 (Planned for 01/25/2020) Following planned day: Day 1, Cycle 5-6 (Planned for 03/21/2020) Specialty Infusion Treatment: ZOLEDRONIC ACID (RECLAST) INFUSION Current treatment: Treatment 1 (Planned for 11/24/2021) Allergies Allergen Reactions ??? Adhesive Redness burn Current Facility-Administered Medications: ??? acetaminophen (TYLENOL) tablet 650 mg, 650 mg, oral, Q4H PRN, Anjel Muniz MD ??? acetaminophen (TYLENOL) tablet 650 mg, 650 mg, oral, Q6H PRN, Anjel Muniz MD ??? acyclovir (ZOVIRAX) tablet 400 mg, 400 mg, oral, BID, Anjel Muniz MD, 400 mg at 08/19/21 0903 ??? albuterol 2.5 mg/0.5 mL nebulizer solution 2.5 mg, 2.5 mg, nebulization, Q6H ROSA MARIA (RT), 2.5 mg at 08/19/21 0444 AND ipratropium (ATROVENT) 0.02 % nebulizer solution 0.5 mg, 0.5 mg, nebulization, Q6H ROSA MARIA (RT), Anjel Muniz MD, 0.5 mg at 08/19/21 0445 ? ? aluminum & magnesium atqkgzvvt-orbsotncvit-autqnmftvbjhcbt-lidocaine (MAGIC MOUTHWASH) suspension 1-1-1, 15 mL, swish & swallow, QID PRN, Anjel Muniz MD ??? atorvastatin (LIPITOR) tablet 40 mg, 40 mg, oral, Daily, Anjel Muniz MD, 40 mg at 08/19/21902 ??? azithromycin (ZITHROMAX) 500 mg/255 mL in sodium chloride 0.9% (premix) 500 mg, 500 mg, intravenous, Q24H ROSA MARIA, Anjel Muniz MD, Last Rate: 255 mL/hr at 08/19/21 0909, 500 mg at ??? bacitracin-polymyxin B (POLYSPORIN) 500-10,000 unit/gram ointment tube 1 application, 1 application, topical, Q4H PRN, Anjel Muniz MD ??? camphor-menthoL (SARNA) 0.5-0.5 % lotion, , topical, Q2H PRN, Anjel Muniz MD ??? cefepime (MAXIPIME) 1,000 mg/10 mL in sterile water (premix) 1,000 mg, 1,000 mg, intravenous, Once PRN, Anjel Muniz MD ??? cefepime (MAXIPIME) 1,000 mg/10 mL in sterile water (premix) 1,000 mg, 1,000 mg, intravenous, Q8H ROSA MARIA, Anjel Muniz MD, Stopped at 08/19/21 0628 ??? cholecalciferol (VITAMIN D-3) capsule 2,000 Units, 2,000 Units, oral, Daily, Anjel Muniz MD, 2,000 Units at 08/19/21902 ??? dextromethorphan-guaiFENesin (ROBITUSSIN-DM) 2-20 mg/mL syrup 10 mL, 10 mL, oral, Q4H PRN, Anjel Muniz MD, 10 mL at 08/17/21 1503 ??? dextrose (GLUTOSE) 40 % gel 15 g, 15 g, oral, Q15 Min PRN OR dextrose (D10W) 10% bolus 250 mL, 250 mL, intravenous, Q15 Min PRN, Anjel Muniz MD ??? biciaksqtjn-fjqyoitfn-ihbmdtap (TRELEGY ELLIPTA) 100-62.5-25 mcg inhaler 1 puff, 1 puff, inhalation, Daily (RT), Anjel Muniz MD ??? gabapentin (NEURONTIN) capsule 400 mg, 400 mg, oral, TID, Anjel Muniz MD, 400 mg at 08/19/21 0903 ??? glucagon injection 1 mg, 1 mg, intramuscular, Q30 Min PRN, Anjel Muniz MD ??? heparin 10 unit/mL flush 20-50 Units, 2-5 mL, intra-catheter, PRN, Anjel Muniz MD ??? heparin 10 unit/mL flush 50 Units, 5 mL, intra-catheter, Q12H ROSA MARIA, Anjel Muniz MD ??? insulin glargine (LANTUS, SEMGLEE) 100 unit/mL injection 15 Units, 15 Units, subcutaneous, BID,Anjel Muniz MD, 15 Units at 08/19/21 0911 ??? insulin lispro (HumaLOG, ADMELOG) 100 unit/mL injection 0-5 Units, 0-5 Units, subcutaneous, QID(AC & HS), Anjel Muniz MD, 1 Units at 08/19/21 0728 ??? insulin lispro (HumaLOG, ADMELOG) 100 unit/mL injection 10 Units, 10 Units, subcutaneous, TID with meals, Anjel Muniz MD ??? loperamide (IMODIUM) capsule 2 mg, 2 mg, oral, Q1H PRN, Anjel Muniz MD ??? magnesium sulfate 4 g/100 mL in water (premix) 4 g, 4 g, intravenous, Q4H PRN, Anjel Muniz MD ??? magnesium sulfate 6 g in sodium chloride 0.9% 250 mL IVPB, 6 g, intravenous, Q4H PRN, Anjel Muniz MD ??? montelukast (SINGULAIR) tablet 10 mg, 10 mg, oral, Daily, Anjel Muniz MD, 10 mg at 08/19/21902 ??? mycophenolate mofetil (CELLCEPT) tablet 1,000 mg, 1,000 mg, oral, BID, Anjel Muniz MD, 1,000 mg at 08/19/21902 ??? nicotine (NICODERM CQ) 14 mg patch 24 hour 1 patch, 1 patch, transdermal, Daily, Michael Perrin MD, Last Rate: 0 mL/hr at 08/18/21 2309, 1 patch at 08/18/21 2310 ??? ofloxacin (OCUFLOX) 0.3 % ophthalmic solution 1 drop, 1 drop, left eye, QID, Anjel Muniz MD, 1 drop at 08/19/21 0859 ??? omega-3 fatty acids (LOVAZA) capsule 1 g, 1 g, oral, BID, Anjel Muniz MD, 1 g at 08/19/21902 ??? polyvinyl alcohol-povidone (REFRESH CLASSIC) 1.4-0.6 % ophthalmic solution 2 drop, 2 drop, eacheye, Q4H PRN, Anjel Muniz MD ??? potassium chloride 40 mEq/520 mL in sodium chloride 0.9% (premix) 40 mEq, 40 mEq, intravenous, Q4H PRN, Anjel Muniz MD ??? potassium chloride ER (KLOR-CON) extended release tablet 40 mEq, 40 mEq, oral, Q4H PRN, Anjel Muniz MD ??? prednisoLONE acetate (PRED FORTE) 1 % ophthalmic suspension 1 drop, 1 drop, left eye, QID, Anjel Muniz MD, 1 drop at 08/19/21 0859 ??? predniSONE (DELTASONE) tablet 40 mg, 40 mg, oral, Daily, Anjel Muniz MD, 40 mg at 08/19/21 0903 ??? rivaroxaban (XARELTO) tablet 20 mg, 20 mg, oral, Daily - 0600, Anjel Muniz MD, 20 mgat 08/19/21 0558 ??? sodium chloride (OCEAN) 0.65 % nasal spray 2 spray, 2 spray, each nostril, Q1H PRN, Anjel Muniz MD ??? sodium chloride 0.9% flush 0.5-20 mL, 0.5-20 mL, intra-catheter, Q8H ROSA MARIA, Anjel Muniz MD, 10 mL at 08/19/21 0559 ??? sodium chloride 0.9% flush 0.5-20 mL, 0.5-20 mL, intra-catheter, PRN, Anjel Muniz MD ??? sodium chloride 0.9% infusion, 30 mL/hr, intravenous, Continuous PRN, Anjel Muniz MD ? ? sodium chloride 0.9% irrigation 30 mL, 30 mL, swish & spit, QID, Anjel Muniz MD ??? sodium chloride 0.9% IVPB 0-250 mL, 0-250 mL, intravenous, PRN, Anjel Muniz MD ??? sodium phosphate - potassium phosphate (K-PHOS NEUTRAL) tablet 500 mg, 500 mg, oral, Daily PRN,Anjel Muniz MD ??? tacrolimus (PROGRAF) immediate-release capsule 0.5 mg, 0.5 mg, oral, Q48H, Anjel Muniz MD, 0.5 mg at 08/17/21 1503 ??? voriCONAZOLE (VFEND) tablet 200 mg, 200 mg, oral, BID, Anjel Muniz MD, 200 mg at 08/19/21 0903 ??? white petrolatum-mineral oiL (EUCERIN) cream, , topical, Q2H PRN, Anjel Munized, MD Objective Vitals: 24hr Min/Max: Temp Min: 36.5 ??C (97.7 ??F) Max: 36.8 ??C (98.2 ??F) Pulse Min: 53 Max: 74 BP Min: 127/73 Max: 144/65 Resp Min: 16 Max: 18 SpO2 Min: 93 % Max: 100 % Most Recent : Vitals: 08/19/21 0859 BP: 132/66 BP Location: Right arm Patient Position: Sitting Pulse: 53 Resp: 16 Temp: 36.6 ??C (97.9 ??F) TempSrc: Oral SpO2: 94% Weight: I/O last 2 completed shifts: In: 1214 [P.O.:800; I.V.:394; IV Piggyback:20] Out: 2200 [Urine:2200] Physical exam: General: Chronically ill appearing, NAD, appears stated age Skin: no rash, normal color and turgor HEENT: normocephalic, PERRLA, EOMI, no mucositis. + poor dentition CV: RRR. No m/g/r, normal S1S2 Lungs: Rhonchi and crackles BL --improved from yesetrday, no w/r/r, unlabored respiratory effort Abdomen: Soft, NTND, +BS Extremities: Atraumatic, acyanotic, no TTP, symmetrical + edema Neuro: AAOx3, CN II-XI grossly intact, normal speech Psych: Appropriate mood, affect, and judgement. Lab/Radiology/Diagnostic Review: I have reviewed the laboratory, radiologic, and diagnostic results. CBC: Recent Labs Lab Units 08/19/21 0033 WBC K/cumm 8.0 HEMOGLOBIN g/dL 11.9* HEMATOCRIT % 34.0* MCV fL 98.6* MCH pg 34.5* MCHC g/dL 35.0 RDW CV % 14.6 RDWSD fL 53.2* MPV fL 10.7 NEUTROS ABS K/cumm 6.4 CMP: Recent Labs Lab Units 08/19/21 0706 08/19/21 0033 08/18/21 2138 08/17/21 1458 08/17/21 1415 SODIUM mmol/L -- 142 -- < > 136 POTASSIUM PLASMA mmol/L -- 3.9 -- < > See Comment CO2 mmol/L -- 28 -- < > 28 BUN SERUM mg/dL -- 21 -- < > 11 GLUCOSE mg/dL -- 239* -- < > 149 POC GLUCOSE MONITOR mg/dL 178 -- < > < > -- CREATININE mg/dL -- 0.92 -- < > 0.82 CALCIUM mg/dL -- 8.8 -- < > 8.6 CHLORIDE mmol/L -- 103 -- < > 100 ALBUMIN g/dL -- -- -- -- 3.7 AST Units/L -- -- -- -- See Comment ALT Units/L -- -- -- -- See Comment ALK PHOS Units/L -- -- -- -- 169* BILIRUBIN TOTAL mg/dL -- -- -- -- 0.5 TOTAL PROTEIN g/dL -- -- -- -- 7.6 ANIONGAP mmol/L -- 11 -- < > 8 < > = values in this interval not displayed. PT: PTT: Recent Labs Lab Units 08/17/21 1721 APTT sec 34 Assessment/Plan Combined form of senile cataract of both eyes Assessment & Plan S/p R eye cataract on 08/01, and L in 04/2021 Continue ofloxacin DVT (deep venous thrombosis) ([facility]) ([facility]) Assessment & Plan 2 events of PE/DVT and only DVT in 2012 and 2017 Resume home Xeralto COPD with exacerbation ([facility]) ([facility]) Assessment & Plan On albuterol prn, trelegy Ellipta and LTOT [...] 2-3 lpm at night and during exertion Vitamin D deficiency Assessment & Plan Apparently has been on 50 units/weeks for a while - will switch to maintenance and check level Type 2 diabetes mellitus (HCC) Assessment & Plan Resume home insulin regimen Will increase his long acting and short acting insulin given worsening glycemia in setting of steroids 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) Assessment & Plan S/p Busulfan and Cytoxan on the [facility] allogeneic study with his sister, 08/27 match; with day 0 on 11/09/2009 after induction with 7+3 and HiDAC consolidation x3. Followed by Decitabine maintenance on the CALGB 02563 protocol and relapsed disease, status post AMD/MEC. 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 Remains afebrile. No significant events overnight. Active Treatment & Therapy Plans for Brady Jones Oncology Chemotherapy Treatment: [id number] - [facility] - Heme/BMT - INCB 230569 - EAP Ruxolitinib for GVHD (On Hold) Current day: Day 1, Cycle 3 and 4 (Planned for 01/25/2020) Following planned day: Day 1, Cycle 5-6 (Planned for 03/21/2020) Specialty Infusion Treatment: ZOLEDRONIC ACID (RECLAST) INFUSION Current treatment: Treatment 1 (Planned for 11/24/2021) Allergies Allergen Reactions ??? Adhesive Redness burn Current Facility-Administered Medications: ??? acetaminophen (TYLENOL) tablet 650 mg, 650 mg, oral, Q4H PRN, Anjel Muniz MD ??? acetaminophen (TYLENOL) tablet 650 mg, 650 mg, oral, Q6H PRN, Anjel Muniz MD ??? acyclovir (ZOVIRAX) tablet 400 mg, 400 mg, oral, BID, Anjel Muniz MD, 400 mg at 08/18/21 0817 ??? albuterol 2.5 mg/0.5 mL nebulizer solution 2.5 mg, 2.5 mg, nebulization, Q6H ROSA MARIA (RT), 2.5 mg at 08/18/21 1127 AND ipratropium (ATROVENT) 0.02 % nebulizer solution 0.5 mg, 0.5 mg, nebulization, Q6H ROSA MARIA (RT), Anjel Muniz MD, 0.5 mg at 08/18/21 1127 ? ? aluminum & magnesium gganutlov-tfarridkham-vtskilectretabp-lidocaine (MAGIC MOUTHWASH) suspension 1-1-1, 15 mL, swish & swallow, QID PRN, Anjel Muniz MD ??? atorvastatin (LIPITOR) tablet 40 mg, 40 mg, oral, Daily, Anjel Muniz MD, 40 mg at 08/18/21 0817 ??? azithromycin (ZITHROMAX) 500 mg/255 mL in sodium chloride 0.9% (premix) 500 mg, 500 mg, intravenous, Q24H ROSA MARIA, Anejl Muniz MD, Stopped at 08/18/21 1001 ??? bacitracin-polymyxin B (POLYSPORIN) 500-10,000 unit/gram ointment tube 1 application, 1 application, topical, Q4H PRN, Anjel Muniz MD ??? camphor-menthoL (SARNA) 0.5-0.5 % lotion, , topical, Q2H PRN, Anjel Muniz MD ??? cefepime (MAXIPIME) 1,000 mg/10 mL in sterile water (premix) 1,000 mg, 1,000 mg, intravenous, Once PRN, Anjel Muniz MD ??? cefepime (MAXIPIME) 1,000 mg/10 mL in sterile water (premix) 1,000 mg, 1,000 mg, intravenous, Q8H ROSA MARIA, Anjel Muniz MD, Stopped at 08/18/21 1405 ??? dextromethorphan-guaiFENesin (ROBITUSSIN-DM) 2-20 mg/mL syrup 10 mL, 10 mL, oral, Q4H PRN, Anjel Muniz MD, 10 mL at 08/17/21 1503 ??? dextrose (GLUTOSE) 40 % gel 15 g, 15 g, oral, Q15 Min PRN OR dextrose (D10W) 10% bolus 250 mL, 250 mL, intravenous, Q15 Min PRN, Anjel Muniz MD ??? vyrlpykrgef-oqerakaff-wtemlged (TRELEGY ELLIPTA) 100-62.5-25 mcg inhaler 1 puff, 1 puff, inhalation, Daily (RT), Anjel Muniz MD ??? gabapentin (NEURONTIN) capsule 400 mg, 400 mg, oral, TID, Anjel Muniz MD, 400 mg at 08/18/21 0817 ??? glucagon injection 1 mg, 1 mg, intramuscular, Q30 Min PRN, Anjel Muniz MD ??? heparin 10 unit/mL flush 20-50 Units, 2-5 mL, intra-catheter, PRN, Anjel Muniz MD ??? heparin 10 unit/mL flush 50 Units, 5 mL, intra-catheter, Q12H ROSA MARIA, Anjel Muniz MD ??? insulin glargine (LANTUS, SEMGLEE) 100 unit/mL injection 15 Units, 15 Units, subcutaneous, QAM,Anjel Muniz MD, 15 Units at 08/18/21 0818 ??? insulin lispro (HumaLOG, ADMELOG) 100 unit/mL injection 0-5 Units, 0-5 Units, subcutaneous, QID(AC & HS), Anjel Muniz MD, 1 Units at 08/18/21 0818 ??? insulin lispro (HumaLOG, ADMELOG) 100 unit/mL injection 7 Units, 7 Units, subcutaneous, TID with meals, Anjel Muniz MD, 7 Units at 08/18/211248 ??? loperamide (IMODIUM) capsule 2 mg, 2 mg, oral, Q1H PRN, Anjel Muniz MD ??? magnesium sulfate 4 g/100 mL in water (premix) 4 g, 4 g, intravenous, Q4H PRN, Anjel Muniz MD ??? magnesium sulfate 6 g in sodium chloride 0.9% 250 mL IVPB, 6 g, intravenous, Q4H PRN, Anjel Muniz MD ??? montelukast (SINGULAIR) tablet 10 mg, 10 mg, oral, Daily, Anjel Muniz MD, 10 mg at 08/18/21 08 ??? nicotine (NICODERM CQ) 14 mg patch 24 hour 1 patch, 1 patch, transdermal, Daily, Michael Perrin MD, 1 patch at 08/17/21 2302 ??? ofloxacin (OCUFLOX) 0.3 % ophthalmic solution 1 drop, 1 drop, left eye, QID, Anjel Muniz MD, 1 drop at 08/18/21 1249 ??? omega-3 fatty acids (LOVAZA) capsule 1 g, 1 g, oral, BID, Anjel Muniz MD, 1 g at 08/18/21 08 ??? polyvinyl alcohol-povidone (REFRESH CLASSIC) 1.4-0.6 % ophthalmic solution 2 drop, 2 drop, eacheye, Q4H PRN, Anjel Muniz MD ??? potassium chloride 40 mEq/520 mL in sodium chloride 0.9% (premix) 40 mEq, 40 mEq, intravenous, Q4H PRN, Anjel Muniz MD ??? potassium chloride ER (KLOR-CON) extended release tablet 40 mEq, 40 mEq, oral, Q4H PRN, Anjel Muniz MD ??? prednisoLONE acetate (PRED FORTE) 1 % ophthalmic suspension 1 drop, 1 drop, left eye, QID, Anjel Muniz MD, 1 drop at 08/18/21 1249 ??? predniSONE (DELTASONE) tablet 40 mg, 40 mg, oral, Daily, Anjel Muniz MD, 40 mg at 08/18/21 0817 ??? rivaroxaban (XARELTO) tablet 20 mg, 20 mg, oral, Daily - 0600, Anejl Muniz MD, 20 mgat 08/18/21 0618 ??? sodium chloride (OCEAN) 0.65 % nasal spray 2 spray, 2 spray, each nostril, Q1H PRN, Anjel Muniz MD ??? sodium chloride 0.9% flush 0.5-20 mL, 0.5-20 mL, intra-catheter, Q8H ROSA MARIA, Anjel Muniz MD, 10 mL at 08/18/21 1250 ??? sodium chloride 0.9% flush 0.5-20 mL, 0.5-20 mL, intra-catheter, PRN, Anjel Muniz MD ??? sodium chloride 0.9% infusion, 30 mL/hr, intravenous, Continuous PRN, Anjel Muniz MD ? ? sodium chloride 0.9% irrigation 30 mL, 30 mL, swish & spit, QID, Anjel Muniz MD ??? sodium chloride 0.9% IVPB 0-250 mL, 0-250 mL, intravenous, PRN, Anjel Muniz MD ??? sodium phosphate - potassium phosphate (K-PHOS NEUTRAL) tablet 500 mg, 500 mg, oral, Daily PRN,Anjel Muniz MD ??? sodium phosphate - potassium phosphate (K-PHOS NEUTRAL) tablet 500 mg, 500 mg, oral, TID with meals, Michael Perrin MD, 500 mg at 08/18/21 1249 ??? tacrolimus (PROGRAF) immediate-release capsule 0.5 mg, 0.5 mg, oral, Q48H, Anjel Mnuiz MD, 0.5 mg at 08/17/21 1503 ??? voriCONAZOLE (VFEND) tablet 200 mg, 200 mg, oral, BID, Anjel Muniz MD, 200 mg at 08/18/21 0817 ??? white petrolatum-mineral oiL (EUCERIN) cream, , topical, Q2H PRN, Anjel Muniz MD Objective Vitals: 24hr Min/Max: Temp Min: 36.5 ??C (97.7 ??F) Max: 36.9 ??C (98.4 ??F) Pulse Min: 61 Max: 79 BP Min: 107/58 Max: 138/65 Resp Min: 18 Max: 18 SpO2 Min: 92 % Max: 98 % Most Recent : Vitals: 08/18/21 1102 BP: 129/73 BP Location: Right arm Patient Position: Sitting;HOB 30 degrees Pulse: 67 Resp: 18 Temp: 36.5 ??C (97.7 ??F) TempSrc: Oral SpO2: 97% Weight: I/O last 2 completed shifts: In: 515 [P.O.:250; IV Piggyback:265] Out: 900 [Urine:900] Physical exam: General: Crhonically ill appearing, NAD, appears stated age Skin: no rash, normal color and turgor HEENT: normocephalic, PERRLA, EOMI, no mucositis. + poor dentition CV: RRR. No m/g/r, normal S1S2 Lungs: Rhonchi and crackles BL --improved from yesetrday, no w/r/r, unlabored respiratory effort Abdomen: Soft, NTND, +BS Extremities: Atraumatic, acyanotic, no TTP, symmetrical + edema Neuro: AAOx3, CN II-XI grossly intact, normal speech Psych: Appropriate mood, affect, and judgement. Lab/Radiology/Diagnostic Review: I have reviewed the laboratory, radiologic, and diagnostic results. CBC: Recent Labs Lab Units 08/18/21 0037 WBC K/cumm 5.2 HEMOGLOBIN g/dL 11.5* HEMATOCRIT % 33.3* MCV fL 96.5* MCH pg 33.3 MCHC g/dL 34.5 RDW CV % 14.2 RDWSD fL 50.3* MPV fL 10.0 NEUTROS ABS K/cumm 4.4 CMP: Recent Labs Lab Units 08/18/21 1153 08/18/21 0713 08/18/21 0037 08/17/21 1458 08/17/21 1415 SODIUM mmol/L -- -- 136 < > 136 POTASSIUM PLASMA mmol/L -- -- 4.0 < > See Comment CO2 mmol/L -- -- 30 < > 28 BUN SERUM mg/dL -- -- 19 < > 11 GLUCOSE mg/dL -- -- 268* < > 149 POC GLUCOSE MONITOR mg/dL 142 < > -- < > -- CREATININE mg/dL -- -- 0.97 < > 0.82 CALCIUM mg/dL -- -- 8.7 < > 8.6 CHLORIDE mmol/L -- -- 102 < > 100 ALBUMIN g/dL -- -- -- -- 3.7 AST Units/L -- -- -- -- See Comment ALT Units/L -- -- -- -- See Comment ALK PHOS Units/L -- -- -- -- 169* BILIRUBIN TOTAL mg/dL -- -- -- -- 0.5 TOTAL PROTEIN g/dL -- -- -- -- 7.6 ANIONGAP mmol/L -- -- 4 < > 8 < > = values in this interval not displayed. PT: PTT: Recent Labs Lab Units 08/17/21 1721 APTT sec 34 Assessment/Plan Combined form of senile cataract of both eyes Assessment & Plan S/p R eye cataract on 08/01, and L in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 08/11/21 65.4 kg (144 lb 3.2 oz) 07/17/21 64 kg (141 lb 3.2 oz) Anthropometrics Weight: 67.1 kg (148 lb) Admission Weight : 67.1 kg Weight Change: 1.72 kg (3.80 lbs) IBW/kg (Calculated) : 75.5 kg Height: 178 cm (5' 10.08 ) Weight in (lb) to have BMI = 25: 174.3 BMI (Calculated): 21.2 Nutrition Needs Calculations: Calculated Energy Needs Using Equations Weight: 67.1 kg (148 lb) Height: 178 cm (5' 10.08 ) Estimated Protein Needs Type of Weight Used for Estimated Protein : Current Protein Needs Based on g/k.2 Total Protein Estimated Needs (gm): 80.56 Kcal/kg Type of Weight Used for Estimated Kcals: Current Kcal/k Total Kcal/kg Estimated Needs : Vital Signs: BP: 129/73 Temp: 36.5 ??C (97.7 ??F) Pulse: 67 Resp: 18 SpO2: 97 % Medications: Scheduled Meds: acyclovir, 400 mg, oral, BID albuterol, 2.5 mg, nebulization, Q6H ROSA MARIA (RT) And ipratropium, 0.5 mg, nebulization, Q6H ROSA MARIA (RT) atorvastatin, 40 mg, oral, Daily azithromycin, 500 mg, intravenous, Q24H ROSA MARIA cefepime, 1,000 mg, intravenous, Q8H ROSA MARIA ekywcmkglxb-opahbvcmx-eukvkmwz, 1 puff, inhalation, Daily (RT) gabapentin, 400 mg, oral, TID heparin flush (porcine), 5 mL, intra-catheter, Q12H ROSA MARIA insulin glargine, 15 Units, subcutaneous, QAM insulin lispro, 0-5 Units, subcutaneous, QID (AC & HS) insulin lispro, 7 Units, subcutaneous, TID with meals montelukast, 10 mg, oral, Daily nicotine, 1 patch, transdermal, Daily ofloxacin, 1 drop, left eye, QID omega-3 fatty acids, 1 g, oral, BID prednisoLONE acetate, 1 drop, left eye, QID predniSONE, 40 mg, oral, Daily rivaroxaban, 20 mg, oral, Daily - 0600 sodium chloride 0.9%, 0.5-20 mL, intra-catheter, Q8H ROSA MARIA sodium chloride 0.9%, 30 mL, swish & spit, QID sodium phosphate - potassium phosphate, 500 mg, oral, TID with meals tacrolimus, 0.5 mg, oral, Q48H voriCONAZOLE, 200 mg, oral, BID Continuous Infusions: sodium chloride 0.9%, 30 mL/hr sodium chloride 0.9%, 0-250 mL PRN Meds: ??? acetaminophen ??? acetaminophen ? ? aluminum & magnesium tqvwvtmdw-pxfdketdppt-fjlnujppokirptb-lidocaine ??? bacitracin-polymyxin B ??? camphor-menthoL ??? cefepime ??? dextromethorphan-guaiFENesin ??? dextrose OR dextrose ??? glucagon ??? heparin flush (porcine) ??? loperamide ??? magnesium sulfate ??? magnesium sulfate ??? lubricant ??? potassium chloride ??? potassium chloride ER ??? sodium chloride ??? sodium chloride 0.9% ??? sodium chloride 0.9% ??? sodium chloride 0.9% ??? sodium phosphate - potassium phosphate ??? white petrolatum-mineral oiL Lab Review: Sodium Date Value Ref Range Status 08/18/2021 136 135 - 145 mmol/L Final Potassium, pl Date Value Ref Range Status 08/18/2021 4.0 3.3 - 4.9 mmol/L Final BUN Date Value Ref Range Status 08/18/2021 19 8 - 25 mg/dL Final Creatinine Date Value Ref Range Status 08/18/2021 0.97 0.80 - 1.30 mg/dL Final Phosphorus, pl Date Value Ref Range Status 08/18/2021 1.4 (L) 2.3 - 4.5 mg/dL Final Albumin Date Value Ref Range Status 08/17/2021 3.7 3.5 - 5.0 g/dL Final Magnesium Date Value Ref Range Status 08/18/2021 1.6 1.4 - 2.5 mg/dL Final Calcium Date Value Ref Range Status 08/18/2021 8.7 8.5 - 10.3 mg/dL Final ALT Date Value Ref Range Status 08/17/2021 See Comment 7 - 55 Units/L Final Comment: Credited; Hemolyzed Specimen AST Date Value Ref Range Status 08/17/2021 See Comment 10 - 50 Units/L Final Comment: Credited; Hemolyzed Specimen Alk phos Date Value Ref Range Status 08/17/2021 169 (H) 40 - 130 Units/L Final Comment: Hemolyzed; result may be falsely decreased Lab Results Component Value Date HGBA1C 8.1 (H) 08/11/2021 HDL 52 08/11/2021 LDLCALC 126 08/11/2021 CHOL 196 08/11/2021 TRIG 88 08/11/2021 Nursing Assessment: Intake/Output Summary (Last 24 hours) at 08/18/2021 1234 Last data filed at 08/18/2021 1100 Gross per 24 hour Intake 875 ml Output 1500 ml Net -625 ml Gastrointestinal Gastrointestinal (WDL): Within Defined Limits Last BM Date: 08/17/21 Last BM Date: 08/17/21 Rolf Scale Score: 20 Skin Integrity: Tear Oral Mucosa Grade: Painless ulcers, erythema or mild soreness no lesions (I) Dietary Orders (From admission, onward) Start Ordered 08/17/21 2100 Bedtime snack At bedtime Comments: If bedtime BG is less than 100mg/dl, give patient a 15 gram carbohydrate snack. 08/17/21 1239 08/17/21 1216 Adult Diet Regular Diet effective now Comments: Neutropenic Diet. No RAW or undercooked meat, fish, poultry, or eggs. Question: ([facility]) Diet type Answer: Regular 08/17/21 1218 Impression: Pt reports a good appetite, ate 100% of breakfast this morning. Pt reports eating well at home, states that he is aware of diabetic diet recommendations and he tracks his blood sugars and weight changes. Reports weight has been stable around 140-145lb. Denied use of oral nutrition supplements, mentioned taking vitamin/mineral supplements that are prescribed, but unable to recall what he is taking. Noted pt is scheduled prednisone, POC glucose: 289, 184, 142 Wt Readings from Last 6 Encounters: 08/17/21 67.1 kg (148 lb) 08/11/21 65.4 kg (144 lb 3.2 oz) 07/17/21 64 kg (141 lb 3.2 oz) 06/08/21 64 kg (141 lb) 05/06/21 61.7 kg (136 lb) 02/03/21 68 kg (150 lb) NUTRITION DIAGNOSIS Nutrition Diagnosis 1: No nutrition issue at this time INTERVENTION Encouraged PO intakes to tolerance. Recommended avoiding simple/added sugars to help with blood sugar control and encouraged consistent carbohydrate diet. Recommend changing diet order to consistent carbohydrate if pt with hyperglycemia. RD will continue to follow and monitor intakes. GOALS / MONITORING: Goals: Adequate nutrition to meet estimated needs by next assessment Interventions: Encouragement Monitoring and Evaluation: Appetite, PO intake, Weight changes, Labs, Blood glucoses Stefany Cerna RDN, COMPACTOR DRIVER, LD documented in this encounter Nursing Notes * Izabela Major RN - 08/19/2021 2:28 PM CDT Patient stable upon discharge and vital signs stable. Patient peripheral IVs (2) removed, gauze andcoban applied. 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 RN asked patient ifhe had any questions, patient denied questions about paperwork. documented in this encounter Miscellaneous Notes * Hospital Course - Anjel Muniz MD - 08/19/2021 3:01 PM CDT Combined form of senile cataract of both eyes S/p R eye cataract on 08/01, and L in 04/2021 Continue ofloxacin eye gtt DVT (deep venous thrombosis) 2 events of PE/DVT and DVT in 2012 and 2017 Resume home Xeralto COPD with exacerbation On albuterol prn, trelegy Ellipta and LTOT at 3 lpm via NC at night and during exertion at home RPP is + rhino/entero virus BCx neg UA neg Afebrile here Started 5 days pred 08/17 - one more dose to complete after DC DuaNeb Azithromycin and cefepime 08/17 - 08/19/2021 Mucinex Last TTE from 11/2019 is unremarkable, pt denies any PND, chest pain, + BL le swelling is chronic and probably related to venous insufficiency==> no indication to repeat given improvement in his breathing with the current regimen Much better now Back to baseline O2, on RA at rest and 2-3 lpm at night and during exertion Vitamin D deficiency Apparently has been on 50 units/weeks for a while - Switched to maintenance and check level Type 2 diabetes mellitus Resume home insulin regimen Will increase his long acting and short acting insulin given worsening glycemia in setting of steroids AML (acute myeloid leukemia) in remission S/p Busulfan and Cytoxan on the [facility] allogeneic study with his sister, 08/27 match; with day 0 on 11/09/2009 after induction with 7+3 and HiDAC consolidation x3. Followed by Decitabine maintenance on the CALGB 84128 protocol and relapsed disease, status post AMD/[facility]. 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 Patient stable at discharge. See nursing note. * Plan of Shannon - Arleen Lowe RN - 08/18/2021 10:19 PM CDT Problem: Activity: Goal: Ability to [...] pain management will improve Outcome: Progressing Problem: Health Behavior: Goal: Understanding of discharge needs will improve Outcome: Progressing Goals: Clinical Goals for the Shift: vss Summary: * Plan of Care - Ramonita Chilel RN - 08/18/2021 6:57 PM CDT Problem: Activity: Goal: Ability to implement measures to reduce episodes of fatigue will improve Outcome: Progressing Problem: Bowel/Gastric: Goal: Will not experience complications related to bowel motility Outcome: Progressing Problem: Bowel/Gastric: Goal: Will not experience complications related to bowel motility Outcome: Progressing Problem: Lack of Knowledge: Goal: Knowledge of diagnostic tests will improve Outcome: Progressing Goal: Knowledge of disease or condition will improve Outcome: Progressing Goal: Knowledge of the prescribed therapeutic regimen will improve Outcome: Progressing Goal: Knowledge of pain management will improve Outcome: Progressing Goals: Clinical Goals for the Shift: vital signs wdl, monitor O2 Summary: Pt states he feels well, hopefully discharging tomorrow. * Plan of Jamel Peng RRT - 08/18/2021 11:30 AM CDT Respiratory therapy will continue to administer the scheduled breathing treatments as well as continue to monitor the patients respiratory status. * Plan of Care - Mary Beth Murphy RN - 08/17/2021 9:35 PM CDT Goals: Clinical Goals for the Shift: vss; rest Problem: Activity: Goal: Ability to implement measures [...] of pain management will improve Outcome: Progressing Summary: pt vital signs stable at this time. * Plan of Care - Jamel Granados RRT - 08/17/2021 5:35 PM CDT Respiratory therapy will continue to administer the scheduled breathing treatments, as well as continue to monitor the patients respiratory status. * Plan of Care - Narcisa Mcgill RN - 08/17/2021 4:48 PM CDT Problem: Activity: Goal: Ability to implement measures to reduce episodes of fatigue will improve Outcome: Progressing Problem: Bowel/Gastric: Goal: Will not experience complications related to bowel motility Outcome: Progressing Problem: Lack of Knowledge: Goal: Knowledge of diagnostic tests will improve Outcome: Progressing Problem: Lack of Knowledge: Goal: Knowledge of disease or condition will improve Outcome: Progressing Problem: Lack of Knowledge: Goal: Knowledge of the prescribed therapeutic regimen will improve Outcome: Progressing Goals: Clinical Goals for the Shift: admission Summary: pt admitted and oriented to unit * Assessment & Plan Note - Anjel Muniz MD - 08/17/2021 12:29 PM CDT Associated Problem(s): Vitamin D deficiency Apparently has been on 50 units/weeks for a while - will switch to maintenance and check level * Assessment & Plan Note - Anjel Muniz MD - 08/17/2021 12:29 PM CDT Associated Problem(s): Type 2 diabetes mellitus (HCC) Resume home insulin regimen Will increase his long acting and short acting insulin given worsening glycemia in setting of steroids * Assessment & Plan Note - Anjel Muniz MD - 08/17/2021 12:28 PM CDT Associated Problem(s): Kyjqe-yvgnta-lltx disease (HCC) Of the eyes and lung Resume Cellcept and tactro Continue PF eye drops * Assessment & Plan Note - Anjel Muniz MD - 08/17/2021 12:27 PM CDT Associated Problem(s): DVT (deep venous thrombosis) (CMS/HCC) (HCC) 2 events of PE/DVT and only DVT in 2012 and 2017 Resume home Xeralto * Assessment & Plan Note - Anjel Muniz MD - 08/17/2021 12:26 PM CDT Associated Problem(s): COPD with exacerbation (CMS/HCC) (HCC) On albuterol prn, trelegy Ellipta and LTOT [...] 2-3 lpm at night and during exertion * Assessment & Plan Note - Anjel Muniz MD - 08/17/2021 12:23 PM CDT Associated Problem(s): Combined form of senile cataract of both eyes S/p R eye cataract on 08/01, and L in 04/2021 Continue ofloxacin * Assessment & Plan Note - Anjel Muniz MD - 08/17/2021 12:20 PM CDT Associated Problem(s): AML s/p Allo SCT in 2008 S/p Busulfan and Cytoxan on the [facility] allogeneic study with his sister, 08/27 match; with day 0 on 11/09/2009 after induction with 7+3 and HiDAC consolidation x3. Followed by Decitabine maintenance on the CALGB 19525 protocol and relapsed disease, status post AMD/[facility]. 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 difficile testing Stool Microbiology STAT Lab orders - as needed, STAT collection for 1 Occurrences starting 08/17/2021 documented as of this encounter Procedures Procedure Name Priority Date/Time Associated Diagnosis Comments POCT GLUCOSE DEVICE Routine 08/19/2021 1 2:05 PM CDT POCT GLUCOSE DEVICE Routine 08/19/2021 7 :06 AM CDT BMT CBC Routine 08/19/2021 12:33 AM CDT EGFR Routine 08/19/2021 12:33 AM CDT MANUAL DIFFERENTIAL Routine 08/19/2021 1 2:33 AM CDT CBC WITHOUT DIFFERENTIAL Routine 08/19/2021 12:33 AM CDT PHOSPHORUS Routine 08/19/2021 12:33 AM CDT MAGNESIUM Routine 08/19/2021 12:33 AM CDT BASIC METABOLIC PANEL Routine 08/19/2021 12:33 AM CDT POCT GLUCOSE DEVICE Routine 08/18/2021 9 :38 PM CDT POCT GLUCOSE DEVICE Routine 08/18/2021 4 :48 PM CDT POCT GLUCOSE DEVICE Routine 08/18/2021 1 1:53 AM CDT POCT GLUCOSE DEVICE Routine 08/18/2021 7 :13 AM CDT BMT CBC Routine 08/18/2021 12:37 AM CDT EGFR Routine 08/18/2021 12:37 AM CDT MANUAL DIFFERENTIAL Routine 08/18/2021 1 2:37 AM CDT CBC WITHOUT DIFFERENTIAL Routine 08/18/2021 12:37 AM CDT PHOSPHORUS Routine 08/18/2021 12:37 AM CDT MAGNESIUM Routine 08/18/2021 12:37 AM CDT BASIC METABOLIC PANEL Routine 08/18/2021 12:37 AM CDT POCT GLUCOSE DEVICE Routine 08/17/2021 8 :36 PM CDT POTASSIUM, WHOLE BLOOD Timed 08/17/2021 5:21 PM CDT APTT Timed 08/17/2021 5:21 PM CDT POCT GLUCOSE DEVICE Routine 08/17/2021 2 :58 PM CDT BLOOD CULTURE Routine 08/17/2021 2:23 PM CDT BMT CBC STAT 08/17/2021 2:15 PM CDT EGFR STAT 08/17/2021 2:15 PM CDT URINALYSIS AND REFLEX TO MICROSCOPIC AND CULTURE Routine 08/17/2021 2:15 PM CDT MANUAL DIFFERENTIAL STAT 08/17/2021 2 :15 PM CDT BLOOD CULTURE Timed 08/17/2021 2:15 PM CDT CBC WITHOUT DIFFERENTIAL STAT 08/17/2021 2:15 PM CDT TYPE AND SCREEN STAT 08/17/2021 2:15 PM CDT PHOSPHORUS STAT 08/17/2021 2:15 PM CDT MAGNESIUM STAT 08/17/2021 2:15 PM CDT COMPREHENSIVE METABOLIC PANEL STAT 08/17/2021 2:15 PM CDT ECG 12-LEAD STAT 08/17/2021 1:08 PM CDT XR CHEST 1 VIEW IP Routine 08/17/2021 12:48 PM CDT RESPIRATORY PATHOGEN PANEL STAT 08/17/2021 11:45 AM CDT documented in this encounter Results * (ABNORMAL) POCT glucose (08/19/2021 12:05 PM CDT) Glucose, POC 209(H) 70 - 199 mg/dL [facility] Glucose comment 1 RN Notified [facility] Blood 08/19/2021 12:0 5 PM CDT 08/19/2021 12:05 PM CDT us Josué Del Valle MD PhD LAB POCT ORDERABLES - DE VICE Final Result [facility] [place] [address] * POCT glucose (08/19/2021 7:06 AM CDT) Glucose, POC 178 70 - 199 mg/dL [facility] Blood 08/19/2021 7:06 AM CDT 08/19/2021 7:06 AM CDT us Josué Del Valle MD PhD LAB POCT ORDERABLES - DE VICE Final Result [facility] Department [place] [address] * eGFR (08/19/2021 12:33 AM CDT) eGFR >90 90 - 130 mL/min/1.7 3 m2 [facility] Comment: Interpretive Data Reference Interval Normal ?>/= [...] interpretive data was last reviewed 2020 Blood 08/19/2021 12:3 3 AM CDT 08/19/2021 12:59 AM CDT us Anjel Muniz MD LAB BLOOD ORDERABLES Fin al Result [facility] [place] [address] * (ABNORMAL) Manual Differential (08/19/2021 12:33 AM CDT) Differential Manual [facility] Cells Counted 113 [facility] Neutrophil abs 6.4 1.7 - 6.5 K/cumm [facility] Imm gran abs 0.0 0.0 - 0.1 K/cumm [facility] Lymphocyte abs 1.4 0.8 - 3.3 K/cumm [facility] Monocyte abs 0.2 0.2 - 0.8 K/cumm [facility] Neutrophil pct 79.6 % [facility] Comment: Interpretive Data Percent cell count reference ranges are not reported, since discordance with absolute values may lead to misinterpretation of CBC data. Current Interpretive Data was last revised on 2018. Lymphocyte pct 15.9 % [facility] Comment: Interpretive Data Percent cell count reference ranges are not reported, since discordance with absolute values may lead to misinterpretation of CBC data. Current Interpretive Data was last revised on 2018. Monocyte pct 2.7 % [facility] Comment: Interpretive Data Percent cell count reference ranges are not reported, since discordance with absolute values may lead to misinterpretation of CBC data. Current Interpretive Data was last revised on 2018. Variant lymph pct 1.8 % [facility] RBC morphology Present(A) [facility] Anisocytosis Moderate(A) [facility] Poikilocytosis Slight(A) [facility] Macrocytes 8-15/HPF(A) [facility] Platelet estimate Adequate [facility] Blood 08/19/2021 12:3 3 AM CDT 08/19/2021 12:59 AM CDT us Anjel Muniz MD LAB BLOOD ORDERABLES Arun tamiko Result - Final [facility] Department [place] [address] * (ABNORMAL) CBC without differential (08/19/2021 12:33 AM CDT) Pathologist [facility] WBC 8.0 3.8 - 9.9 K/cumm [facility] Hgb 11.9(L) 13.0 - 17.5 g/dL [facility] Hct 34.0(L) 38.9 - 50.3 % [facility] Plt 253 150 - 400 K/cumm [facility] MPV 10.7 9.1 - 12.3 fL [facility] RBC 3.45(L) 4.30 - 5.80 M/cumm [facility] MCV 98.6(H) 81.3 - 96.4 fL [facility] MCH 34.5(H) 27.1 - 33.3 pg [facility] MCHC 35.0 32.3 - 35.7 g/dL [facility] RDW CV 14.6 11.1 - 14.9 % [facility] RDW SD 53.2(H) 35.7 - 48.1 fL [facility] NRBC abs 0.00 0.00 - 0.01 K/cumm [facility] Blood 08/19/2021 12:3 3 AM CDT 08/19/2021 12:59 AM CDT Anjel Muniz MD LAB BLOOD ORDERABLES [facility] al Result [facility] [place] [address] * (ABNORMAL) Basic metabolic panel (08/19/2021 12:33 AM CDT) Pathologist [facility] Sodium 142 135 - 145 mmol/L [facility] Potassium, pl 3.9 3.3 - 4.9 mmol/L [facility] Comment:Hemolyzed; Potassium value may be falsely elevated by as much as 0.3-0.5 mmol/L. Suggest redraw and reanalysis. Chloride 103 97 - 110 mmol/L [facility] CO2 28 22 - 32 mmol/L [facility] Anion gap 11 2 - 15 mmol/L [facility] BUN 21 8 - 25 mg/dL [facility] Creatinine 0.92 0.80 - 1.30 mg/dL [facility] Glucose 239(H) 70 - 199 mg/dL [facility] Comment: Interpretive Data Fasting glucose >/= 126 [...] interpretive data was last revised 2017. Calcium 8.8 8.5 - 10.3 mg/dL [facility] Blood 08/19/2021 12:3 3 AM CDT 08/19/2021 12:59 AM CDT Narrative [facility] - 08/19/2021 1:25 AM CDT Daily except Saturday and . Morning draw. Anjel Muniz MD LAB BLOOD ORDERABLES Fin al Result Performing Organization Address City/State/[facility] Co de Phone Number [facility] [place] [address] * Phosphorus (08/19/2021 12:33 AM CDT) Phosphorus, pl 3.1 2.3 - 4.5 mg/dL [facility] Blood 08/19/2021 12:3 3 AM CDT 08/19/2021 12:59 AM CDT Anjel Muniz MD LAB BLOOD ORDERABLES Fin al Result Performing Organization Address [facility] Co de Phone Number [facility] [place] [address] * Magnesium (08/19/2021 12:33 AM CDT) Magnesium 1.6 1.4 - 2.5 mg/dL [facility] Blood 08/19/2021 12:3 3 AM CDT 08/19/2021 12:59 AM CDT us Anjel Muniz MD LAB BLOOD ORDERABLES Fin al Result Performing Organization Address [facility] Co de Phone Number [facility] [place] [address] * (ABNORMAL) POCT glucose (08/18/2021 9:38 PM CDT) Glucose, POC 302(H) 70 - 199 mg/dL [facility] Blood 08/18/2021 9:38 PM CDT 08/18/2021 9:38 PM CDT us Josué Del Valle MD PhD LAB POCT ORDERABLES - DE VICE Final Result Performing Organization Address [facility] Co de Phone Number [facility] [place] [address] * (ABNORMAL) POCT glucose (08/18/2021 4:48 PM CDT) Glucose, POC 297(H) 70 - 199 mg/dL [facility] Blood 08/18/2021 4:48 PM CDT 08/18/2021 4:48 PM CDT us Josué Del Valle MD PhD LAB POCT ORDERABLES - DE VICE Final Result Performing Organization Address [facility] Co de Phone Number [facility] [place] [address] * POCT glucose (08/18/2021 11:53 AM CDT) Glucose, POC 142 70 - 199 mg/dL [facility] Glucose comment 1 RN Notified [facility] Blood 08/18/2021 11:5 3 AM CDT 08/18/2021 11:53 AM CDT us Josué Del Valle MD PhD LAB POCT ORDERABLES - DE VICE Final Result Performing Organization Address [facility] [place] [address] * POCT glucose (08/18/2021 7:13 AM CDT) Glucose, POC 184 70 - 199 mg/dL [facility] Glucose comment 1 RN Notified [facility] Blood 08/18/2021 7:13 AM CDT 08/18/2021 7:13 AM CDT us Josué Del Valle MD PhD LAB POCT ORDERABLES - DE VICE Final Result Performing Organization Address [facility] [place] [address] * (ABNORMAL) eGFR (08/18/2021 12:37 AM CDT) eGFR 88(L) 90 - 130 mL/min/1.7 3 m2 [facility] Comment: Interpretive Data Reference Interval Normal ?>/= [...] interpretive data was last reviewed 2020 Blood 08/18/2021 12:3 7 AM CDT 08/18/2021 12:48 AM CDT Anjel Muniz MD LAB BLOOD ORDERABLES Fin al Result [facility] [place] [address] * (ABNORMAL) Manual Differential (08/18/2021 12:37 AM CDT) Differential Manual [facility] Cells Counted 115 [facility] Neutrophil abs 4.4 1.7 - 6.5 K/cumm [facility] Imm gran abs 0.0 0.0 - 0.1 K/cumm [facility] Lymphocyte abs 0.8 0.8 - 3.3 K/cumm [facility] Monocyte abs 0.0(L) 0.2 - 0.8 K/cumm [facility] Neutrophil pct 84.3 % [facility] Comment: Interpretive Data Percent cell count reference ranges are not reported, since discordance with absolute values may lead to misinterpretation of CBC data. Current Interpretive Data was last revised on 2018. Lymphocyte pct 12.2 % [facility] Comment: Interpretive Data Percent cell count reference ranges are not reported, since discordance with absolute values may lead to misinterpretation of CBC data. Current Interpretive Data was last revised on 2018. Monocyte pct 0.9 % [facility] Comment: Interpretive Data Percent cell count reference ranges are not reported, since discordance with absolute values may lead to misinterpretation of CBC data. Current Interpretive Data was last revised on 2018. Variant lymph pct 2.6 % [facility] RBC morphology Present(A) [facility] Anisocytosis Slight(A) [facility] Macrocytes 3-7/HPF(A) [facility] Platelet estimate Adequate [facility] Blood 08/18/2021 12:3 7 AM CDT 08/18/2021 12:47 AM CDT us Anjel Muniz MD LAB BLOOD ORDERABLES Arun tamiko Result - Final [facility] [place] [address] * (ABNORMAL) CBC without differential (08/18/2021 12:37 AM CDT) WBC 5.2 3.8 - 9.9 K/cumm [facility] Hgb 11.5(L) 13.0 - 17.5 g/dL [facility] Hct 33.3(L) 38.9 - 50.3 % [facility] Plt 227 150 - 400 K/cumm [facility] MPV 10.0 9.1 - 12.3 fL [facility] RBC 3.45(L) 4.30 - 5.80 M/cumm [facility] MCV 96.5(H) 81.3 - 96.4 fL [facility] MCH 33.3 27.1 - 33.3 pg [facility] MCHC 34.5 32.3 - 35.7 g/dL [facility] RDW CV 14.2 11.1 - 14.9 % [facility] RDW SD 50.3(H) 35.7 - 48.1 fL [facility] NRBC abs 0.00 0.00 - 0.01 K/cumm [facility] Blood 08/18/2021 12:3 7 AM CDT 08/18/2021 12:47 AM CDT Anjel Muniz MD LAB BLOOD ORDERABLES Fin al Result Performing Organization Address City/[facility]/ZIP Co de Phone Number [facility] [place] [address] * (ABNORMAL) Basic metabolic panel (08/18/2021 12:37 AM CDT) [facility] Sodium 136 135 - 145 mmol/L [facility] Potassium, pl 4.0 3.3 - 4.9 mmol/L [facility] Chloride 102 97 - 110 mmol/L [facility] CO2 30 22 - 32 mmol/L [facility] Anion gap 4 2 - 15 mmol/L [facility] BUN 19 8 - 25 mg/dL [facility] Creatinine 0.97 0.80 - 1.30 mg/dL [facility] Glucose 268(H) 70 - 199 mg/dL [facility] Comment: Interpretive Data Fasting glucose >/= 126 [...] 2017. Calcium 8.7 8.5 - 10.3 mg/dL [facility] Blood 08/18/2021 12:3 7 AM CDT 08/18/2021 12:48 AM CDT Narrative [facility] - 08/18/2021 1:37 AM CDT Daily except Saturday and . Morning draw. Anjel Muniz MD LAB BLOOD ORDERABLES Fin al Result Performing Organization Address [facility]/ZIP Co de Phone Number [facility] [place] [address] * (ABNORMAL) Phosphorus (08/18/2021 12:37 AM CDT) Pathologist [facility] Phosphorus, pl 1.4(L) 2.3 - 4.5 mg/dL [facility] Blood 08/18/2021 12:3 7 AM CDT 08/18/2021 12:48 AM CDT us Anjel Muniz MD LAB BLOOD [place] [address] * Magnesium (08/18/2021 12:37 AM CDT) [facility] Magnesium 1.6 1.4 - 2.5 mg/dL [facility] Blood 08/18/2021 12:3 7 AM CDT 08/18/2021 12:48 AM CDT Anjel Muniz MD LAB BLOOD ORDERABLES Fin al Result Performing Organization Address City/[facility]/ZIP Co de Phone Number [facility] [place] [address] * (ABNORMAL) POCT glucose (08/17/2021 8:36 PM CDT) [facility] Glucose, POC 289(H) 70 - 199 mg/dL [facility] Blood 08/17/2021 8:36 PM CDT 08/17/2021 8:36 PM CDT us Josué Del Valle MD PhD LAB POCT ORDERABLES - DE VICE Final Result Performing Organization Address City/[facility]/ZIP Co de Phone Number [facility] [place] [address] * aPTT (08/17/2021 5:21 PM CDT) aPTT 34 27 - 37 sec [facility] Comment: Interpretive Data Therapeutic heparin range: 60.0 - 94.0 seconds. Based on correlation with therapeutic heparin activity range of 0.3-0.7 Units/mL. Current interpretive data was last revised on 2021. Blood 08/17/2021 5:21 PM CDT 08/17/2021 5:26 PM CDT Anjel Muniz MD LAB BLOOD ORDERABLES Fin al Result Performing Organization Address [facility] Co de Phone Number [facility] [place] [address] * Potassium, whole blood (08/17/2021 5:21 PM CDT) [facility] Potassium, bld 3.8 3.3 - 4.9 mmol/L [facility] Comment: Interpretive Data Unable to assess hemolysis. ??Invitro hemolysis causes falsely elevated potassium. Current Interpretive Data was last revised on 2020. Blood 08/17/2021 5:21 PM CDT 08/17/2021 5:26 PM CDT Anjel Muniz MD LAB BLOOD ORDERABLES Fin al Result Performing Organization Address [facility] Co de Phone Number [facility] [place] [address] * POCT glucose (08/17/2021 2:58 PM CDT) Pathologist [facility] Glucose, POC 112 70 - 199 mg/dL [facility] Blood 08/17/2021 2:58 PM CDT 08/17/2021 2:58 PM CDT Josué Del Valle MD PhD LAB POCT ORDERABLES - DE VICE Final Result Performing Organization Address [facility]/ZIP Co de Phone Number ZULEMA DENT Daniela [facility] [place] [address] * Blood culture Blood Forearm, left (08/17/2021 2:23 PM CDT) Report Final Report: No growth [facility]ULE[facility] DENT Blood (Forearm, left) 08/17/2021 2:23 PM CDT 08/17/2021 2:43 PM CDT Narrative ZULEMA SOMMERS - 08/21/2021 4:00 PM CDT From a different site than #1. 1. ?Blood cultures are incubated for 4 [...] organism identification may be performed using the Skycrossigene Gram-Positive Blood Culture Assay. This assay detects [...] this culture, contact the Microbiology Laboratory at [phone]. Interpretive data was last revised on 2020. us Anjel Muniz MD LAB MICROBIOLOGY - GENER AL ORDERABLES Final Result Performing Organization Address City/[facility]/ZIP Co de Phone Number ZULEMA Suarez [facility] [place] [address] * eGFR (08/17/2021 2:15 PM CDT) Pathologist [facility] eGFR >90 90 - 130 mL/min/1.7 3 m2 [facility] Comment: Interpretive Data Reference Interval Normal [...] interpretive data was last reviewed 2020 Blood 08/17/2021 2:15 PM CDT 08/17/2021 2:49 PM CDT us Anjel Muniz MD LAB BLOOD ORDERABLES Fin al Result [facility] [place] [address] * (ABNORMAL) Manual Differential (08/17/2021 2:15 PM CDT) Differential Manual [facility] Cells Counted 110 [facility] Neutrophil abs 5.1 1.7 - 6.5 K/cumm [facility] Imm gran abs 0.0 0.0 - 0.1 K/cumm [facility] Lymphocyte abs 1.5 0.8 - 3.3 K/cumm [facility] Monocyte abs 0.7 0.2 - 0.8 K/cumm [facility] Basophil abs 0.1 0.0 - 0.1 K/cumm [facility] Neutrophil pct 69.1 % [facility] Comment: Interpretive Data Percent cell count reference ranges are not reported, since discordance with absolute values may lead to misinterpretation of CBC data. Current Interpretive Data was last revised on 2018. Lymphocyte pct 18.2 % [facility] Comment: Interpretive Data Percent cell count reference ranges are not reported, since discordance with absolute values may lead to misinterpretation of CBC data. Current Interpretive Data was last revised on 2018. Monocyte pct 9.1 % [facility] Comment: Interpretive Data Percent cell count reference ranges are not reported, since discordance with absolute values may lead to misinterpretation of CBC data. Current Interpretive Data was last revised on 2018. Basophil pct 1.8 % [facility] Comment: Interpretive Data Percent cell count reference ranges are not reported, since discordance with absolute values may lead to misinterpretation of CBC data. Current Interpretive Data was last revised on 2018. Variant lymph pct 1.8 % [facility] RBC morphology Present(A) [facility] Anisocytosis Moderate(A) [facility] Poikilocytosis Slight(A) [facility] Macrocytes 8-15/HPF(A) [facility] Platelet estimate Adequate [facility] Blood 08/17/2021 2:15 PM CDT 08/17/2021 2:48 PM CDT us Anjel Muniz MD LAB BLOOD ORDERABLES Fin al Result [facility] [place] [address] * (ABNORMAL) CBC without differential (08/17/2021 2:15 PM CDT) WBC 7.4 3.8 - 9.9 K/cumm [facility] Hgb 12.6(L) 13.0 - 17.5 g/dL [facility] Hct 36.2(L) 38.9 - 50.3 % [facility] Plt 249 150 - 400 K/cumm [facility] MPV 10.9 9.1 - 12.3 fL [facility] RBC 3.66(L) 4.30 - 5.80 M/cumm [facility] MCV 98.9(H) 81.3 - 96.4 fL [facility] MCH 34.4(H) 27.1 - 33.3 pg [facility] MCHC 34.8 32.3 - 35.7 g/dL [facility] RDW CV 14.6 11.1 - 14.9 % [facility] RDW SD 52.6(H) 35.7 - 48.1 fL [facility] NRBC abs 0.00 0.00 - 0.01 K/cumm [facility] Blood 08/17/2021 2:15 PM CDT 08/17/2021 2:48 PM CDT Anjel Muniz MD LAB BLOOD ORDERABLES Fin al Result Performing Organization Address City/State/[facility] Co de Phone Number [facility] [place] [address] * Blood culture Blood Forearm, right (08/17/2021 2:15 PM CDT) Pathologist [facility] Report Final Report: No growth [facility] Blood (Forearm, right) 08/17/2021 2:15 PM CDT 08/17/2021 2:42 PM CDT Narrative [facility] - 08/21/2021 4:00 PM CDT 1. ?Blood cultures are incubated [...] organism identification may be performed using the Skycrossigene Gram-Positive Blood Culture Assay. This assay detects [...] this culture, contact the Microbiology Laboratory at [phone]. Interpretive data was last revised on 2020. Anjel Muniz MD LAB MICROBIOLOGY - [facility] ORDERABLES Final Result [facility] [place] [address] * (ABNORMAL) Urinalysis reflex to microscopic and culture Urine, clean voided (08/17/2021 2:15 PM CDT) Color, ur Yellow Yellow [facility] Clarity, ur Clear Clear [facility] Specific gravity, ur 1.012 1.003 - 1.030 [facility] pH, urine 6 [facility] Protein, ur ql Negative Negative [facility] Glucose, ur ql Negative Negative [facility] Ketones, ur Negative Negative [facility] Bilirubin, ur Negative Negative [facility] Blood, ur Negative Negative [facility] Urobilinogen, ur 4.0(A) <2.0 mg/dL [facility] Nitrite, ur Negative Negative [facility] Leukocyte esterase, ur Negative Negative [facility] UA reflex comment Reflex conditions for microscopic UA and culture not met. [facility] Urine, clean voided 08/17/2021 2:15 PM CDT 08/17/2021 2:38 PM CDT Narrative [facility] - 08/17/2021 2:47 PM CDT ?? Urine pH is affected by diet, medications, systemic acid-base disturbances, and renal tubular function. ??pH may affect urinary stone formation. ??For example, urine pH below 6.0 may help reduce the tendency for calcium phosphate stones and pH greater than 6.0 may reduce the tendency for uric acid stone formation. Source: [employer]. Last revised 11-28-2017 Anjel Muniz MD LAB MICROBIOLOGY - GENER AL ORDERABLES Final Result Performing Organization Address City/[facility] Co de Phone Number [facility] [place] [address] * Type and screen (08/17/2021 2:15 PM CDT) Ursula, indirect Negative [facility] ABO Rh A Positive [facility] Blood 08/17/2021 2:15 PM CDT 08/17/2021 2:46 PM CDT Narrative [facility] - 08/17/2021 3:44 PM CDT Has the patient had Daratumumab or Isatuximab in the past 6 months?->Unknown Anjel Muniz MD LAB BLOOD BANK TEST ORDE RABLES Final Result Performing Organization Address City/[facility] Co de Phone Number [facility] [place] [address] * Phosphorus (08/17/2021 2:15 PM CDT) Pathologist [facility] Phosphorus, pl 3.0 2.3 - 4.5 mg/dL [facility] Comment:Hemolyzed; result ma y be falsely elevated Blood 08/17/2021 2:15 PM CDT 08/17/2021 2:49 PM CDT Anjel Muniz MD LAB BLOOD ORDERABLES Fin al Result Performing Organization Address City/[facility]/ZIP Co de Phone Number [facility] [place] [address] * Magnesium (08/17/2021 2:15 PM CDT) Pathologist [facility] Magnesium 1.7 1.4 - 2.5 mg/dL [facility] Blood 08/17/2021 2:15 PM CDT 08/17/2021 2:49 PM CDT Anjel Muniz MD LAB BLOOD ORDERABLES Fin al Result Performing Organization Address [facility] de Phone Number [facility] [place] [address] * (ABNORMAL) Comprehensive metabolic panel (08/17/2021 2:15 PM CDT) Pathologist [facility] Sodium 136 135 - 145 mmol/L [facility] Potassium, pl See Comment 3.3 - 4.9 mmol/L [facility] Comment:Credited; Hemolyzed Specimen Chloride 100 97 - 110 mmol/L [facility] CO2 28 22 - 32 mmol/L [facility] Anion gap 8 2 - 15 mmol/L [facility] BUN 11 8 - 25 mg/dL [facility] Creatinine 0.82 0.80 - 1.30 mg/dL [facility] Glucose 149 70 - 199 mg/dL [facility] Comment: Interpretive Data Fasting glucose >/= 126 [...] interpretive data was last revised 2017. Calcium 8.6 8.5 - 10.3 mg/dL [facility] Bilirubin, total 0.5 0.1 - 1.2 mg/dL [facility] Protein, pl 7.6 6.5 - 8.5 g/dL [facility] Albumin 3.7 3.5 - 5.0 g/dL [facility] Alk phos 169(H) 40 - 130 Units/L [facility] Comment:Hemolyzed; result ma y be falsely decreased ALT See Comment 7 - 55 Units/L [facility] Comment:Credited; Hemolyzed Specimen AST See Comment 10 - 50 Units/L [facility] Comment:Credited; Hemolyzed Specimen Blood 08/17/2021 2:15 PM CDT 08/17/2021 2:49 PM CDT us Anjel Muniz MD LAB BLOOD ORDERABLES Fin al Result Performing Organization Address City/State/[facility] Co de Phone Number [facility] [place] [address] * ECG 12 lead (08/17/2021 1:08 PM CDT) Pathologist [facility] Ventricular Rate EKG/Min 63 BPM [facility] Atrial Rate 63 BPM [facility] NV-Interval (MSEC) 138 ms [facility] QRS-Interval (MSEC) 90 ms [facility] QT-Interval (MSEC) 422 ms [facility] QTc 431 ms [facility] P [place] 74 degrees [facility] R [place] 97 degrees [facility] T [place] 88 degrees [facility] Diagnosis Normal sinus rhythm Rightward axis Borderline ECG When compared with ECG of 25-NOV-2019 13:31, [place] interval has increased T wave amplitude has increased in Lateral leads Confirmed by SOHAM WINTERS M.D ([id number]) on 08/21/2021 8:55:14 AM [facility] 08/17/2021 1:08 PM CDT 08/21/2021 8:55 AM CDT us Anjel Muniz MD ECG ORDERABLES Final Re sult [facility] * X-ray chest 1 view (Portable) (08/17/2021 12:48 PM CDT) Anatomical Region Laterality Modality Body, Chest N/A Computed Radiogr aphy 08/17/2021 1:46 PM CDT Impressions 08/17/2021 5:37 PM CDT Comparison is made to 11/20/2019. The cardiac and mediastinal contours are normal. ??There is linear atelectasis/scarring at the right lung apex, otherwise the lungs are clear bilaterally without focal consolidation. The lungs are hyperinflated with flattening of the diaphragm. No pleural effusion or pneumothorax. Dictated by: Chad Benitez M.D. The radiology attending physician has personally reviewed this study, and had reviewed and/or edited this written report and agrees with it. Electronically signed by: Derrell Ochoa M.D. Narrative 08/17/2021 5:37 PM CDT EXAMINATION: 1 view chest radiograph Procedure Note Derrell Ochoa MD - 08/17/2021 EXAMINATION: 1 view chest radiograph IMPRESSION: Comparison is made to 11/20/2019. The cardiac and mediastinal contours are normal. There is linear atelectasis/scarring at the right lung apex, otherwise the lungs are clear bilaterally without focal consolidation. The lungs are hyperinflated with flattening of the diaphragm. No pleural effusion or pneumothorax. Dictated by: Chad Benitez M.D. The radiology attending physician has personally reviewed this study, and had reviewed and/or edited this written report and agrees with it. Electronically signed by: Derrell Ochoa M.D. Anjel Muniz MD IMG XR PROCEDURES Final Result * (ABNORMAL) Respiratory pathogen panel Nasopharyngeal (08/17/2021 11:45 AM CDT) Influenza A RNA Not Detected Not Detected [facility] Influenza B RNA Not Detected Not Detected [facility] RSV RNA Not Detected Not Detected [facility] COVID-19 RNA Not Detected Not Detected [facility] Coronavirus 229E RNA Not Detected Not Detected [facility] Coronavirus HKU1 RNA Not Detected Not Detected [facility] Coronavirus NL63 RNA Not Detected Not Detected [facility] Coronavirus OC43 RNA Not Detected Not Detected [facility] Adenovirus DNA Not Detected Not Detected [facility] Metapneumovirus RNA Not Detected Not Detected [facility] Rhinovirus/Enterov irus RNA Detected(A) Not Detected [facility] Parainfluenza 1 RNA Not Detected Not Detected [facility] Parainfluenza 2 RNA Not Detected Not Detected [facility] Parainfluenza 3 RNA Not Detected Not Detected [facility] Parainfluenza 4 RNA Not Detected Not Detected [facility] B. pertussis DNA Not Detected Not Detected [facility] B. parapertussis DNA Not Detected Not Detected [facility] C. pneumoniae DNA Not Detected Not Detected [facility] M. pneumoniae DNA Not Detected Not Detected [facility] Employeed in healthcare? Unknown [facility] status? No [facility] Group care resident? No [facility] Hospitalized? Yes [facility] Is patient in ICU? No [facility] Symptomatic as defined by CDC? Yes [facility] Nasopharyngeal 08/17/2021 11 :45 AM CDT 08/17/2021 12:35 PM CDT Narrative [facility] - 08/17/2021 2:16 PM CDT Date of Symptom Onset->08/17/21 Reason for testing?->Symptomatic (immunocompromised) Known exposure to confirmed or suspected COVID-19 case?->Yes Surveillance testing for transplant patient?->No ??Interpretive Data [employer] FilmArray Respiratory Panel (RP2.1) assay is a [...] assay has FDA clearance for testing of MEDICAID ANALYST swabs. ??The performance characteristics of this assay have been determined by [facility]. Current interpretive data was last revised on 2021. ??Interpretive Data [employer] FilmArray Respiratory Panel (RP2.1) assay is a [...] assay has FDA clearance for testing of MEDICAID ANALYST swabs. ??The performance characteristics of this assay have been determined by [facility]. Current interpretive data was last revised on 2021. 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 COPD with exacerbation (CMS/HCC) (HCC) DVT (deep venous thrombosis) (CMS/HCC) (HCC) Acute venous embolism and thrombosis of unspecified deep vessels of lower extremity Iajwl-[id number] disease (HCC) Type 2 diabetes mellitus (HCC) Vitamin D deficiency documented in this encounter Administered Medications Inactive Administered Medications - up to 3 most recent administrations Medication Order MAR Action Action Date Dose Rate Site acyclovir (ZOVIRAX) tablet 400 mg 400 mg, oral, 2 times daily, First dose on Angy 08/17/21 at 1315, Indications: Prophylaxis, MedicalIndications:Prophylaxis, Medical Given 08/19/2021 9:03 AM CDT 400 mg Given 08/18/2021 8:30 PM CDT 400 mg Given 08/18/2021 8:17 AM CDT 400 mg albuterol 2.5 mg/0.5 mL nebulizer solution 2.5 mg 2.5 mg, nebulization, Every 6 hours (respiratory director), First dose on Angy 08/17/21 at 1330 Given 08/19/2021 12:34 PM CDT 2. 5 mg Given 08/19/2021 4:44 AM CDT 2.5 mg Given 08/19/2021 12:15 AM CDT 2.5 mg atorvastatin (LIPITOR) tablet 40 mg 40 mg, oral, Daily, First dose on Angy 08/17/21 at 1315 Given 08/19/2021 9:03 AM CDT 40 mg Given 08/18/2021 8:17 AM CDT 40 mg Given 08/17/2021 3:03 PM CDT 40 mg azithromycin (ZITHROMAX) 500 mg/255 mL in sodium chloride 0.9% (premix) 500 mg 500 mg, intravenous, at 255 mL/hr, Administer over 60 Minutes, Every 24 hours scheduled, First dose on Angy 08/17/21 at 1330, Indications: Acutely Deteriorating COPDIndications:Acutely Deteriorating COPD New Bag 08/19/2021 9:09 AM CDT 500 mg 255 mL/hr New Bag 08/18/2021 8:19 AM CDT 500 mg 255 mL/hr New Bag 08/17/2021 3:00 PM CDT 500 mg 255 mL/hr cefepime (MAXIPIME) 1,000 mg/10 mL in sterile water (premix) 1,000 mg 1,000 mg, intravenous, at 20 mL/hr, Administer over 30 Minutes, Every 8 hours scheduled, First dose on Angy 08/17/21 at 1600, Indications: COPD ExacerbationIndications:COPD Exacerbation New Bag 08/19/2021 5:58 AM CDT 1,000 mg 20 mL/hr New Bag 08/18/2021 10:00 PM CDT 1,000 mg 20 mL/hr New Bag 08/18/2021 12:49 PM CDT 1,000 mg 20 mL/hr cholecalciferol (VITAMIN D-3) capsule 2,000 Units 2,000 Units, oral, Daily, First dose on Sat08/18/21 at 1530 Given 08/19/2021 9:03 AM CDT 2,000 Units Given 08/18/2021 4:43 PM CDT 2,000 Units dextromethorphan-guaiFENesin (ROBITUSSIN-DM) 2-20 mg/mL syrup 10 mL 10 mL, oral, Every 4 hours PRN, cough, Starting on Angy 08/17/21 at 1259, Indications: CoughIndications:Cough Given 08/17/2021 3:03 PM CDT 10 mL dextrose (D10W) 10% bolus 250 mL 250 mL, intravenous, at 1,000 mL/hr, Administer over 15 Minutes, Every 15 min PRN, blood glucose less than 70 mg/dL and UNABLE to swallow/take PO glucose/juice., Starting on Angy 08/17/21 at 1238, After treatment for hypoglycemia, recheck BG followed [...] less than 70 mg/dL, Starting on Angy 08/17/21 at 1238, If patient is alert and able to [...] Call MD for each episode of hypoglycemia. ENVIRONMENTAL FIELD OFFICE MANAGER STATES GLUTOSE-15 CONTAINS GLUCOSE 40% W/W (50% W/V), Indications: hypoglycemic disorderIndications:hypoglycemic disorder jnpojmfasfl-zvcvbirrm-gddgpfbc (TRELEGY ELLIPTA) 100-62.5-25 mcg inhaler 1 puff 1 puff, inhalation, Daily (respiratory director), First dose on Angy 08/17/21 at 1315, Rinse mouth with water after use. Do not swallow., Indications: Bronchospasm Prevention with COPDIndications:Bronchospasm Prevention with COPD Given 08/19/2021 12:35 PM CDT 1 puff gabapentin (NEURONTIN) capsule 400 mg 400 mg, oral, 3 times daily, First dose on Angy 08/17/21 at 1600, Do not crush, break, or open. Given 08/19/2021 9:03 AM CDT 400 mg Given 08/18/2021 8:30 PM CDT 400 mg Given 08/18/2021 4:43 PM CDT 400 mg glucagon injection 1 mg 1 mg, intramuscular, Every 30 min PRN, low blood sugar, blood glucose less than 70 mg/dL AND no IV access AND unable to take PO glucose/juice., Starting on Angy 08/17/21 at 1238, After Glucagon is administered, position patient on [...] 1 mL SWFI. Use immediately following reconstitution. insulin glargine (LANTUS, SEMGLEE) 100 unit/mL injection 15 Units 15 Units, subcutaneous, Every morning, First dose on [facility] 08/17/21 at 1315, Do not mix with other insulins Given 08/18/2021 8:18 AM CDT 15 Units Left Lower Abdomen Given 08/17/2021 3:02 PM CDT 15 Units Le ft Lower Abdomen insulin glargine (LANTUS, SEMGLEE) 100 unit/mL injection 15 Units 15 Units, subcutaneous, 2 times daily, First dose (after last modification) on 08/19/21 at 0900, Do not mix with other insulins Given 08/19/2021 9:11 AM CDT 15 Units Right Lower Abdomen insulin lispro (HumaLOG, ADMELOG) 100 unit/mL injection 0-5 Units 0-5 Units, subcutaneous, 4 times daily before meals & nightly, First dose on Angy 08/17/21 at 1730, Blood glucose mg/dL: 149 or less: No [...] NPO Status, Indications: Diabetes MellitusIndications:Diabetes Mellitus Given 08/19/2021 12:19 PM CDT 2 Units Right Lower Abdomen Given 08/19/2021 7:28 AM CDT 1 Units Le ft Lower Abdomen Given 08/18/2021 9:42 PM CDT 4 Units Le ft Upper Abdomen insulin lispro (HumaLOG, ADMELOG) 100 unit/mL injection 10 Units 10 Units, subcutaneous, 3 times daily with meals, First dose (after last modification) on [facility] 08/19/21 at 1200 Given 08/19/2021 12:19 PM CDT 10 Units Right Lower Abdomen insulin lispro (HumaLOG, ADMELOG) 100 unit/mL injection 7 Units 7 Units, subcutaneous, 3 times daily with meals, First dose on Angy 08/17/21 at 1315 Given 08/19/2021 7:28 AM CDT 7 Units Left Lower Abdomen Given 08/18/2021 6:09 PM CDT 7 Units Le ft Lower Abdomen Given 08/18/2021 12:49 PM CDT 7 Units L eft Lower Abdomen ipratropium (ATROVENT) 0.02 % nebulizer solution 0.5 mg 0.5 mg, nebulization, Every 6 hours (respiratory director), First dose on Angy 08/17/21 at 1330 Given 08/19/2021 12:34 PM CDT 0. 5 mg Given 08/19/2021 4:45 AM CDT 0.5 mg Given 08/19/2021 12:15 AM CDT 0.5 mg montelukast (SINGULAIR) tablet 10 mg 10 mg, oral, Daily, First dose on Angy 08/17/21 at 1315 Given 08/19/2021 9:03 AM CDT 10 mg Given 08/18/2021 8:17 AM CDT 10 mg Given 08/17/2021 3:03 PM CDT 10 mg mycophenolate mofetil (CELLCEPT) tablet 1,000 mg 1,000 mg, oral, 2 times daily, First dose on Sat08/18/21 at 2100, Do not crush, chew, cut, dissolve, open or otherwise manipulate tablet/capsule., Indications: immunosuppression maintenance tx for lung transplant, Stem cell transplantIndications:immunosuppression maintenance tx for lung transplant,Stem cell transplant Given 08/19/2021 9:03 AM CDT 1,000 mg Given 08/18/2021 8:30 PM CDT 1,000 mg nicotine (NICODERM CQ) 14 mg patch 24 hour 1 patch 1 patch, transdermal, Administer over 24 Hours, Daily, First dose on Sat08/17/21 at 2330, Apply a new patch every 24 hours to a clean, dry, hairless site on the upper arm or hip. Rotate site. Medication Applied 08/18/2021 11:10 PM CDT 1 patch Left Shoulder Medication Applied 08/17/2021 11:02 PM CDT 1 patch Right Arm ofloxacin (OCUFLOX) 0.3 % ophthalmic solution 1 drop 1 drop, left eye, 4 times daily, First dose on Sat08/17/21 at 1315 Given 08/19/2021 12:20 PM CDT 1 drop Given 08/19/2021 8:59 AM CDT 1 drop Given 08/18/2021 8:29 PM CDT 1 drop omega-3 fatty acids (LOVAZA) capsule 1 g 1 g, oral, 2 times daily, First dose on Sat08/17/21 at 2100, Do not crush, break, or open., Indications: hypertriglyceridemiaIndications:hypertriglycerid emia Given 08/19/2021 9:03 AM CDT 1 g Given 08/18/2021 8:30 PM CDT 1 g Given 08/18/2021 8:17 AM CDT 1 g prednisoLONE acetate (PRED FORTE) 1 % ophthalmic suspension 1 drop 1 drop, left eye, 4 times daily, First dose on Sat08/17/21 at 1315, shake well Given 08/19/2021 12:20 PM CDT 1 drop Given 08/19/2021 8:59 AM CDT 1 drop Given 08/18/2021 8:29 PM CDT 1 drop predniSONE (DELTASONE) tablet 40 mg 40 mg, oral, Daily, First dose on Angy 08/17/21 at 1330, Indications: Acutely Deteriorating COPDIndications:Acutely Deteriorating COPD Given 08/19/2021 9:03 AM CDT 4 0 mg Given 08/18/2021 8:17 AM CDT 40 mg Given 08/17/2021 3:03 PM CDT 40 mg rivaroxaban (XARELTO) tablet 20 mg 20 mg, oral, Daily (early AM), First dose on Sat08/18/21 at 0600, Nurse to discontinue heparin infusion order and associated bolus at first administration of rivaroxaban using 'order condition met' order source. If patient is eating, administer doses of 15 mg or greater with food. If patient is not eating, still administer dose unless instructed differently by provider., Indications: VTE Prophylaxis, PE-2010Indications:VTE Prophylaxis,PE-2010 Given 08/19/2021 5:58 AM CDT 20 mg Given 08/18/2021 6:18 AM CDT 20 mg sodium chloride 0.9% flush 0.5-20 mL 0.5-20 mL, intra-catheter, Every 8 hours scheduled, First dose on Angy 08/17/21 at 1400, Flush volume based on line type and size. Given 08/19/2021 5:59 AM CDT 10 mL Given 08/18/2021 8:29 PM CDT 10 mL Given 08/18/2021 12:50 PM CDT 10 mL sodium phosphate - potassium phosphate (K-PHOS NEUTRAL) tablet 500 mg 500 mg, oral, 3 times daily with meals, First dose on Sat08/18/21 at 0800, For 3 doses, Each tablet contains elemental phosphorus 250 mg (8 mmol), potassium 45 mg (1.1 mEq), and sodium 298 mg (13 mEq). Given 08/18/2021 4:43 PM CDT 500 mg Given 08/18/2021 12:49 PM CDT 500 mg Given 08/18/2021 8:17 AM CDT 500 mg tacrolimus (PROGRAF) immediate-release capsule 0.5 mg 0.5 mg, oral, Every 48 hours, First dose on Angy 08/17/21 at 1315, Avoid grapefruit juice Given 08/19/2021 2:04 PM C DT 0.5 mg Given 08/17/2021 3:03 PM CDT 0.5 mg voriCONAZOLE (VFEND) tablet 200 mg 200 mg, oral, 2 times daily, First dose on Angy 08/17/21 at 1315, Indications: stem Cell TransplantIndications:stem Cell Transplant Given 08/19/2021 9:03 AM CDT 2 00 mg Given 08/18/2021 8:30 PM CDT 200 mg Given 08/18/2021 8:17 AM CDT 200 mg documented in this encounter Discontinued Medications Medication Sig Discontinue Reason Start Date End Da te ergocalciferol (VITAMIN D) 50,000 unit capsuleIndications:Vit becerra D Deficiency Take 1 capsule (50,000 Units total) by mouth once a week Stop Taking at Discharge 11/23/2020 08/19/2021 guaifenesin (MUCINEX ORAL) Take 1 Dose by mouth as needed (COPD) Stop Taking at Discharge 08/19/2021 documented as of this encounter Active and Recently Administered Medications Times are shown in CDT. Scheduled Medication Order 08/17/2021 08/18/2021 08/19/2021 acyclovir (ZOVIRAX) tablet 400 mg 400 mg, oral, 2 times daily, First dose on Angy 08/17/21 at 1315, Indications: Prophylaxis, Medical 1503 (Given - Provider: Narcisa Mcgill, BECKI)202 (Given - Provider: Mary Beth Murphy, BECKI) 0817 (Given - Provider: Ramonita Chilel, BECKI)2030 (Given - Provider: Arleen Lowe, BECKI) 0903 (Given - Provider: Izabela Major, BECKI) albuterol 2.5 mg/0.5 mL nebulizer solution 2.5 mg(Linked Group 1) 2.5 mg, nebulization, Every 6 hours (respiratory director), First dose on Angy 08/17/21 at 1330 1400 (Not Given - Provider: Jamel Granados, BRANDEN - Reason: Other - Comment: patient not seen)1728 (Given - Provider: Jamel Granados, POT FEEDER)2259 (Given - Provider: Daria Phillips POT FEEDER) 0433 (Given - Provider: Daria Phillips POT FEEDER)1127 (Given - Provider: Jamel Granados, POT FEEDER)1728 (Given - Provider: Jamel Granados, POT FEEDER) 0015 (Given - Provider: Daria Phillips, POT FEEDER)0444 (Given - Provider: Daria Phillips RRT)1234 (Given - Provider: Marisa Willams, FINANCE SPECIALIST) atorvastatin (LIPITOR) tablet 40 mg 40 mg, oral, Daily, First dose on Angy 08/17/21 at 1315 1503 (Given - Provider: Narcisa Mcgill RN) 0817 (Given - Provider: Ramonita Chilel RN) 0903 (Given - Provider: Izabela Major, BECKI) azithromycin (ZITHROMAX) 500 mg/255 mL in sodium chloride 0.9% (premix) 500 mg 500 mg, intravenous, at 255 mL/hr, Administer over 60 Minutes, Every 24 hours scheduled, First dose on Angy 08/17/21 at 1330, Indications: Acutely Deteriorating COPD 1500 (New Bag - Provider: Narcisa Mcgill RN)1600 (Stopped - Provider: Narcisa Mcgill RN) 0819 (New Bag - Provider: Ramonita Chilel, BECKI)1001 (Stopped - Provider: Ramonita Chilel, RN) 0909 (New Bag - Provider: Izabela Major, BECKI)1009 (Stopped - Provider: Izabela Major, RN) cefepime (MAXIPIME) 1,000 mg/10 mL in sterile water (premix) 1,000 mg 1,000 mg, intravenous, at 20 mL/hr, Administer over 30 Minutes, Every 8 hours scheduled, First dose on Angy 08/17/21 at 1600, Indications: COPD Exacerbation 1659 (New Bag - Provider: Narcisa Mcgill RN - Comment: second check Delmy Villanueva RN)1729 (Stopped - Provider: Narcisa Mcgill RN)2213 (New Bag - Provider: Mary Beth Murphy RN)2244 (Stopped - Provider: Mary Beth Murphy RN) 0618 (New Bag - Provider: Mary Beth Murphy, BECKI)0650 (Stopped - Provider: Mary Beth Murphy RN)1249 (New Bag - Provider: Ramonita Chilel RN)1405 (Stopped - Provider: Ramonita Chilel RN)2200 (New Bag - Provider: Arleen Lowe, BECKI)2230 (Stopped - Provider: Arleen Lowe RN) 0558 (New Bag - Provider: Arleen Lowe RN)0628 (Stopped - Provider: Arleen Lowe, BECKI)1358 (Not Given - Provider: Izabela Major RN - Reason: Other - Comment: ok not to give per MD Mckinnon, patient admitted for COPD exacerbation.) cholecalciferol (VITAMIN D-3) capsule 2,000 Units 2,000 Units, oral, Daily, First dose on Sat08/18/21 at 1530 1643 (Given - Provider: Ramonita Chilel RN) 0903 (Given - Provider: Izabela Major, BECKI) zpvpouchdgt-xtsdrwnaa-mytmnr er (TRELEGY ELLIPTA) 100-62.5-25 mcg inhaler 1 puff 1 puff, inhalation, Daily (respiratory director), First dose on Angy 08/17/21 at 1315, Rinse mouth with water after use. Do not swallow., Indications: Bronchospasm Prevention with COPD 1400 (Not Given - Provider: Jamel Granados, BRANDEN - Reason: Other - Comment: patient not seen) 1000 (Not Given - Provider: Ramonita Chilel RN - Reason: Other) 0859 (Not Given - Provider: Izabela Major RN - Reason: Patient/family refused - Comment: states I do not need it right now )1235 (Given - Provider: Marisa Willams, FINANCE SPECIALIST) gabapentin (NEURONTIN) capsule 400 mg 400 mg, oral, 3 times daily, First dose on Angy 08/17/21 at 1600, Do not crush, break, or open. 1627 (Given - Provider: Narcisa Mcgill RN)2027 (Given - Provider: Mary Beth Murphy RN) 0817 (Given - Provider: Ramonita Chilel, RN)1643 (Given - Provider: Ramonita Chilel, RN)2029 (Given - Provider: Arleen Lowe, BECKI) 0903 (Given - Provider: Izabela Major, BECKI) heparin 10 unit/mL flush 50 Units 50 Units (5 mL), intra-catheter, Every 12 hours scheduled, First dose on Angy 08/17/21 at 1300, Do not use with Groshong catheter, Indications: Maintain Patency of Indwelling Vascular Catheter 1251 (Not Given - Provider: Narcisa Mcgill RN - Reason: Other)1951 (Not Given - Provider: Mary Beth Murphy RN - Reason: Other) 09 (Not Given - Provider: Ramonita Chilel RN - Reason: IV Infusing)2030 (Not Given - Provider: Arleen Lowe RN - Reason: Other) 0903 (Not Given - Provider: Izabela Major RN - Reason: Other) insulin glargine (LANTUS, SEMGLEE) 100 unit/mL injection 15 Units (CANCELED) 15 Units, subcutaneous, Every morning, First dose on Angy 08/17/21 at 1315, Do not mix with other insulins 1502 (Given - Provider: Narcisa Mcgill RN) 0818 (Given - Provider: Ramonita Chilel, BECKI) insulin glargine (LANTUS, SEMGLEE) 100 unit/mL injection 15 Units 15 Units, subcutaneous, 2 times daily, First dose (after last modification) on 08/19/21 at 0900, Do not mix with other insulins 0911 (Given - Provider: Izabela Major, BECKI) insulin lispro (HumaLOG, ADMELOG) 100 unit/mL injection 0-5 Units 0-5 Units, subcutaneous, 4 times daily before meals & nightly, First dose on Angy 08/17/21 at 1730, Blood glucose mg/dL: 149 or less: No insulin 150-199: add 1 unit 200-249: add 2 units 250-299: add 3 units 300-349: add 4 units and notify physician for adjustment of insulin orders. 350-399: add 5 units and notify physician for adjustment of insulin orders. Over 400: Notify physician for adjustment of insulin orders. Do NOT hold for NPO Status, Indications: Diabetes Mellitus 1627 (Not Given - Provider: Narcisa Mcgill RN - Reason: Order parameters not met)2119 (Given - Provider: Mary Beth Murphy, BECKI) 0818 (Given - Provider: Ramonita Chilel RN)1250 (Not Given - Provider: Ramonita Chilel RN - Reason: Order parameters not met)1809 (Given - Provider: Ramonita Chilel RN)2142 (Given - Provider: Arleen Lowe, BECKI) 0728 (Given - Provider: Arleen Lowe, BECKI)1219 (Given - Provider: Izabela Major, BECKI) insulin lispro (HumaLOG, ADMELOG) 100 unit/mL injection 10 Units 10 Units, subcutaneous, 3 times daily with meals, First dose (after last modification) on 08/19/21 at 1200 1219 (Given - Provider: Izabela Major, BECKI) insulin lispro (HumaLOG, ADMELOG) 100 unit/mL injection 7 Units (CANCELED) 7 Units, subcutaneous, 3 times daily with meals, First dose on Angy 08/17/21 at 1315 1458 (Not Given - Provider: Narcisa Mcgill RN - Reason: Order parameters not met)1702 (Not Given - Provider: Narcisa Mcgill RN - Reason: Other - Comment: pt had late lunch) 0819 (Given - Provider: Ramonita Chilel RN)1249 (Given - Provider: Ramonita Chilel RN)1809 (Given - Provider: Ramonita Chilel, BECKI) 0728 (Given - Provider: Arleen Lowe, BECIK) ipratropium (ATROVENT) 0.02 % nebulizer solution 0.5 mg(Linked Group 1) 0.5 mg, nebulization, Every 6 hours (respiratory director), First dose on Angy 08/17/21 at 1330 1400 (Not Given - Provider: Jamel Granadso RRT - Reason: Other - Comment: patient not seen)1728 (Given - Provider: Jamel Granados, POT FEEDER)2259 (Given - Provider: Daria Phillips RRT) 0434 (Given - Provider: Daria Phillips RRT)1127 (Given - Provider: Jamel Granados POT FEEDER)1728 (Given - Provider: Jamel Granados POT FEEDER) 0015 (Given - Provider: Daria Phillips RRT)0445 (Given - Provider: Daria Phillips RRT)1234 (Given - Provider: Marisa Willams FINANCE SPECIALIST) montelukast (SINGULAIR) tablet 10 mg 10 mg, oral, Daily, First dose on Sat08/17/21 at 1315 1503 (Given - Provider: Narcisa Mcgill RN) 0817 (Given - Provider: Ramonita Chilel RN) 0903 (Given - Provider: Izabela Major, BECKI) mycophenolate mofetil (CELLCEPT) tablet 1,000 mg 1,000 mg, oral, 2 times daily, First dose on Sat08/18/21 at 2100, Do not crush, chew, cut, dissolve, open or otherwise manipulate tablet/capsule., Indications: immunosuppression maintenance tx for lung transplant, Stem cell transplant 2029 (Given - Provider: Arleen Lowe, BECKI) 0903 (Given - Provider: Izabela Major, BECKI) nicotine (NICODERM CQ) 14 mg patch 24 hour 1 patch 1 patch, transdermal, Administer over 24 Hours, Daily, First dose on Sat08/17/21 at 2330, Apply a new patch every 24 hours to a clean, dry, hairless site on the upper arm or hip. Rotate site. 2302 (Medication Applied - Provider: Mary Beth Murphy RN) 2309 (Medication Removed - Provider: Arleen Lowe RN)2310 (Medication Applied - Provider: Arleen Lowe RN) 1501 (Due: Medication Removed - Provider: Automatic Discharge Provider - Comment: Time automatically adjusted from order being discontinued) ofloxacin (OCUFLOX) 0.3 % ophthalmic solution 1 drop 1 drop, left eye, 4 times daily, First dose on Sat08/17/21 at 1315 1456 (Given - Provider: Narcisa Mcgill RN)1702 (Not Given - Provider: Narcisa Mcgill RN - Reason: Other)2026 (Given - Provider: Mary Beth Murphy RN) 0820 (Given - Provider: Ramonita Chilel RN)1249 (Given - Provider: Ramonita Chilel RN)171 (Given - Provider: Ramonita Chilel RN)2028 (Given - Provider: Arleen Lowe, BECKI) 0859 (Given - Provider: Izabela Major, RN)1220 (Given - Provider: Izabela Major, RN) omega-3 fatty acids (LOVAZA) capsule 1 g 1 g, oral, 2 times daily, First dose on Sat08/17/21 at 2100, Do not crush, break, or open., Indications: hypertriglyceridemia 2025 (Given - Provider: Mary Beth Murphy RN) 0817 (Given - Provider: Ramonita Chilel RN)2029 (Given - Provider: Arleen Lowe, BECKI) 0903 (Given - Provider: Izabela Major, RN) prednisoLONE acetate (PRED FORTE) 1 % ophthalmic suspension 1 drop 1 drop, left eye, 4 times daily, First dose on Sat08/17/21 at 1315, shake well 1455 (Given - Provider: Narcisa Mcgill RN)1702 (Not Given - Provider: Narcisa Mcgill RN - Reason: Other)2026 (Given - Provider: Mary Beth Murphy, BECKI) 0820 (Given - Provider: Ramonita Chilel RN)1249 (Given - Provider: Ramonita Chilel RN)171 (Given - Provider: Ramonita Chilel RN)2028 (Given - Provider: Arleen Lowe, BECKI) 0859 (Given - Provider: Izabela Major, RN)1220 (Given - Provider: Izabela Major, RN) predniSONE (DELTASONE) tablet 40 mg 40 mg, oral, Daily, First dose on Sat08/17/21 at 1330, Indications: Acutely Deteriorating COPD 1503 (Given - Provider: Narcisa Mcgill RN) 0817 (Given - Provider: Ramonita Chilel, RN) 0903 (Given - Provider: Izabela Major, BECKI) rivaroxaban (XARELTO) tablet 20 mg 20 mg, oral, Daily (early AM), First dose on Sat08/18/21 at 0600, Nurse to discontinue heparin infusion order and associated bolus at first administration of rivaroxaban using 'order condition met' order source. If patient is eating, administer doses of 15 mg or greater with food. If patient is not eating, still administer dose unless instructed differently by provider., Indications: VTE Prophylaxis, PE-2010 617 (Given - Provider: Mary Beth Murphy RN) 0558 (Given - Provider: Arleen Lowe RN) sodium chloride 0.9% flush 0.5-20 mL 0.5-20 mL, intra-catheter, Every 8 hours scheduled, First dose on Sat08/17/21 at 1400, Flush volume based on line type and size. 1253 (Not Given - Provider: Narcisa Mcgill RN - Reason: Other)203 (Not Given - Provider: Mary Beth Murphy RN - Reason: Other) 0531 (Not Given - Provider: Mary Beth Murphy RN - Reason: Patient/family refused)1250 (Given - Provider: Ramonita Chilel, BECKI)202 (Given - Provider: Arleen Lowe RN) 0559 (Given - Provider: Arleen Lowe RN)1359 (Not Given - Provider: Izabela Major, BECKI - Reason: Other) sodium chloride 0.9% irrigation 30 mL 30 mL, swish & spit, 4 times daily, First dose on Sat08/17/21 at 1300, Use as mouth rinse for oral care. 1252 (Not Given - Provider: Narcisa Mcgill RN - Reason: Patient/family refused)1504 (Not Given - Provider: Narcisa Mcgill RN - Reason: Patient/family refused)2026 (Not Given - Provider: Mary Beth Murphy RN - Reason: Other) 0913 (Not Given - Provider: Ramonita Chilel RN - Reason: Patient/family refused)1405 (Not Given - Provider: Ramonita Chilel RN - Reason: Patient/family refused)1715 (Not Given - Provider: Ramonita Chilel RN - Reason: Patient/family refused)2030 (Not Given - Provider: Arleen Lowe RN - Reason: Other) 0859 (Not Given - Provider: Izabela Major RN - Reason: Patient/family refused)1220 (Not Given - Provider: Izabela Major RN - Reason: Patient/family refused) sodium phosphate - potassium phosphate (K-PHOS NEUTRAL) tablet 500 mg (COMPLETED) 500 mg, oral, 3 times daily with meals, First dose on Sat08/18/21 at 0800, For 3 doses, Each tablet contains elemental phosphorus 250 mg (8 mmol), potassium 45 mg (1.1 mEq), and sodium 298 mg (13 mEq). 0817 (Given - Provider: Ramonita Chilel RN)1249 (Given - Provider: Ramonita Chilel RN)1643 (Given - Provider: Ramonita Chilel RN) tacrolimus (PROGRAF) immediate-release capsule 0.5 mg 0.5 mg, oral, Every 48 hours, First dose on Angy 08/17/21 at 1315, Avoid grapefruit juice 1503 (Given - Provider: Narcisa Mcgill, BECKI) 1404 (Given - Provider: Izabela Major RN) voriCONAZOLE (VFEND) tablet 200 mg 200 mg, oral, 2 times daily, First dose on Angy 08/17/21 at 1315, Indications: stem Cell Transplant 1503 (Given - Provider: Narcisa Mcgill, BECKI)2026 (Given - Provider: Mary Beth Murphy RN) 0817 (Given - Provider: Ramonita Chilel RN)2030 (Given - Provider: Arleen Lowe, BECKI) 0903 (Given - Provider: Izabela Major RN) PRN Medication Order 08/17/2021 08/18/2021 08/19/2021 acetaminophen (TYLENOL) tablet 650 mg 650 mg, oral, Every 4 hours PRN, blood product administration, Starting on Angy 08/17/21 at 1214, Indications: Prophylaxis Transfusion Reaction acetaminophen (TYLENOL) tablet 650 mg 650 mg, oral, Every 6 hours PRN, fever, Starting on Angy 08/17/21 at 1214, Indications: Fever aluminum & magnesium ppzirseul-qgkphoiljyz-dnobqgaeuligp ne-lidocaine (MAGIC MOUTHWASH) suspension 1-1-1 15 mL, swish & swallow, 4 times daily PRN, other, mucositis, Starting on Angy 08/17/21 at 1215, Indications: Chemotherapy-Induced Mucositis bacitracin-polymyxin B (POLYSPORIN) 500-10,000 unit/gram ointment tube 1 application 1 application (deactivated), topical, Every 4 hours PRN, wound care, Starting on Angy 08/17/21 at 1215, Apply to affected area: other, Indications: Minor Bacterial Skin Infections camphor-menthoL (SARNA) 0.5-0.5 % lotion topical, Every 2 hours PRN, itching, Starting on Angy 08/17/21 at 1215, Apply to affected area: other, Indications: Pruritus of Skin cefepime (MAXIPIME) 1,000 mg/10 mL in sterile water (premix) 1,000 mg 1,000 mg, intravenous, at 20 mL/hr, Administer over 30 Minutes, Once as needed, for suspicion of sepsis, Starting on Angy 08/17/21 at 1217, For 1 dose, Administer for temperature of 38.3 C or greater, 38 C for at least 1 hour, or for any acute change in condition with high suspicion of sepsis in the absence of fever (SBP/DBP reduction of 20 mmHg or more, confusion, hypothermia with temp of 35 C, and not receiving any other IV antibiotics., Indications: Neutropenic Fever dextromethorphan-guaiFENesin (ROBITUSSIN-DM) 2-20 mg/mL syrup 10 mL 10 mL, oral, Every 4 hours PRN, cough, Starting on Angy 08/17/21 at 1259, Indications: Cough 1503 (Given - Provider: Narcisa Mcgill RN) dextrose (D10W) 10% bolus 250 mL(Linked Group 2) 250 mL, intravenous, at 1,000 mL/hr, Administer over 15 Minutes, Every 15 min PRN, blood glucose less than 70 mg/dL and UNABLE to swallow/take PO glucose/juice., Starting on Angy 08/17/21 at 1238, After treatment for hypoglycemia, recheck BG followed [...] less than 70 mg/dL, Starting on Angy 08/17/21 at 1238, If patient is alert and able to [...] Call MD for each episode of hypoglycemia. ENVIRONMENTAL FIELD OFFICE MANAGER STATES GLUTOSE-15 CONTAINS GLUCOSE 40% W/W (50% W/V), Indications: hypoglycemic disorder glucagon injection 1 mg 1 mg, intramuscular, Every 30 min PRN, low blood sugar, blood glucose less than 70 mg/dL AND no IV access AND unable to take PO glucose/juice., Starting on Sat08/17/21 at 1238, After Glucagon is administered, position patient on [...] line care, with each use, Starting on Sat08/17/21 at 1214, Do not use with Groshong catheter. Flush volume based on line type, size, and protocol., Indications: Maintain Patency of Indwelling Vascular Catheter loperamide (IMODIUM) capsule 2 mg 2 mg, oral, Every 1 hour PRN, diarrhea, after each liquid stool (ensure that at least one C. diff assay is negative prior to initiating), Starting on Angy 08/17/21 at 1214, Total loperamide dose should not exceed 16 mg in 24 hours., Indications: diarrhea magnesium sulfate 4 g/100 mL in water (premix) 4 g 4 g, intravenous, Administer over 90 Minutes, Every 4 hours PRN, magnesium replacement, Starting on Angy 08/17/21 at 1217, For magnesium level of 1.2-1.5 mg/dL, Indications: hypomagnesemia magnesium sulfate 6 g in sodium chloride 0.9% 250 mL IVPB 6 g, intravenous, at 131 mL/hr, Administer over 120 Minutes, Every 4 hours PRN, magnesium replacement, Starting on Angy 08/17/21 at 1217, For magnesium level less than 1.2 mg/dL and call/notify provider., Indications: hypomagnesemia polyvinyl alcohol-povidone (REFRESH CLASSIC) 1.4-0.6 % ophthalmic solution 2 drop 2 drop, each eye, Every 4 hours PRN, dry eyes, Starting on Angy 08/17/21 at 1215, Indications: Dry Eye potassium chloride 40 mEq/520 mL in sodium chloride 0.9% (premix) 40 mEq 40 mEq, intravenous, at 130 mL/hr, Administer over 4 Hours, Every 4 hours PRN, potassium replacement, Starting on Angy 08/17/21 at 1217, HOLD dose and contact prescriber/provider if any [...] if tolerated)., Indications: hypokalemia potassium chloride ER (KLORCON) extended release tablet 40 mEq 40 mEq, oral, Every 4 hours PRN, potassium replacement, Starting on Angy 08/17/21 at 1217, HOLD dose and contact prescriber/provider if any [...] hour PRN, other, dryness, Starting on Angy 08/17/21 at 1215, Indications: Dry Nose sodium chloride 0.9% flush 0.5-20 mL 0.5-20 mL, intra-catheter, As needed, line care, Starting on Angy 08/17/21 at 1217, Flush volume based on line type and size. Flush before and after each use. sodium chloride 0.9% infusion 30 mL/hr, intravenous, Continuous PRN, KVO for medication administrations, Starting on Angy 08/17/21 at 1214 sodium chloride 0.9% IVPB 0-250 mL 0-250 mL, intravenous, As needed, flush tubing for blood product administration, Starting on Angy 08/17/21 at 1214, Prime blood tubing and administer amount needed to clear line (usually 50-100 mL) after transfusion complete. sodium phosphate - potassium phosphate (K-PHOS NEUTRAL) tablet 500 mg 500 mg, oral, Daily PRN, phosphorus level 1.5-1.9 mg/dL, Starting on Angy 08/17/21 at 1217, Contact provider for phosphorus level less than 1.5 mg/dL. Each tablet contains elemental phosphorus 250 mg (8 mmol), potassium 45 mg (1.1 mEq), and sodium 298 mg (13 mEq)., Indications: hypophosphatemia white petrolatum-mineral oiL (EUCERIN) cream topical, Every 2 hours PRN, dry skin, Starting on Sat08/17/21 at 1215, Apply to affected area: other, Indications: Dry Skin Linked Groups Order Group 1: albuterol 2.5 mg/0.5 mL nebulizer solution 2.5 mgJump to med 2.5 mg, nebulization, Every 6 hours (respiratory director), First dose on Angy 08/17/21 at 1330 And ipratropium (ATROVENT) 0.02 % nebulizer solution 0.5 mgJump to med 0.5 mg, nebulization, Every 6 hours (respiratory director), First dose on Angy 08/17/21 at 1330 Group 2: dextrose (GLUTOSE) 40 % gel 15 gJump to med 15 g, oral, Every 15 min PRN, low blood sugar, blood glucose less than 70 mg/dL, Starting on Angy 08/17/21 at 1238, If patient is alert and able to [...] Call MD for each episode of hypoglycemia. ENVIRONMENTAL FIELD OFFICE MANAGER STATES GLUTOSE-15 CONTAINS GLUCOSE 40% W/W (50% W/V), Indications: hypoglycemic disorder Or dextrose (D10W) 10% bolus 250 mLJump to med 250 mL, intravenous, at 1,000 mL/hr, Administer over 15 Minutes, Every 15 min PRN, blood glucose less than 70 mg/dL and UNABLE to swallow/take PO glucose/juice., Starting on Angy 08/17/21 at 1238, After treatment for hypoglycemia, recheck BG followed [...] Date First Ordered Date acetaminophen (TYLENOL) tablet 650 mg 2 aluminum & magnesium crhqgwydg-mwnlhjhwacg-lbvmdtfcaddayst-lido aida (MAGIC MOUTHWASH) suspension 1-1-1 1 08/17/2021 bacitracin-polymyxin B (POLY SPORIN) 500-10,000 unit/gram ointment tube 1 application 1 08/17/2021 camphor-menthoL (SARNA) 0.5-0.5 % lotion 1 08/17/2021 cefepime (MAXIPIME) 1,000 mg /10 mL in sterile water (premix) 1,000 mg 1 08/17/2021 dextrose (D10W) 10% bolus 250 mL 08/17/20 21 dextrose (GLUTOSE) 40 % gel 15 g 1 08/17/20 21 enoxaparin (LOVENOX) syringe 40 mg 1 2020 glucagon injection 1 mg 1 08/17/2021 heparin 10 unit/mL flush 20-50 Units 07/21 heparin 10 unit/mL flush 50 Units 1 loperamide (IMODIUM) capsule 2 mg 1 magnesium sulfate 4 g/100 mL in water (premix) 4 g 08/17/2021 magnesium sulfate 6 g in sod ium chloride 0.9% 250 mL IVPB 1 08/17/2021 polyvinyl alcohol-povidone ( REFRESH CLASSIC) 1.4-0.6 % ophthalmic solution 2 drop 1 08/17/2021 potassium chloride 40 mEq/52 0 mL in sodium chloride 0.9% (premix) 40 mEq 08/17/2021 potassium chloride ER (KLOR- CON) extended release tablet 40 mEq 1 08/17/2021 sodium chloride (OCEAN) 0.65 % nasal spray 2 spray 1 08/17/2021 sodium chloride 0.9% flush 0.5-20 mL 07/21 sodium chloride 0.9% infusion 1 08/17/2021 sodium chloride 0.9% irrigation 30 mL 1 sodium chloride 0.9% IVPB 0-250 mL 2020 sodium phosphate - potassium phosphate (K-PHOS NEUTRAL) tablet 500 mg 1 08/17/2021 white petrolatum-mineral oiL (EUCERIN) cream 1 08/17/2021 Lab Orders Without Results Count Last Ordered D ate First Ordered Date POCT GLUCOSE DEVICE 10 08/19/2021 08/17/20 21 Consult Count Last Ordered Date First Orde red Date IP CONSULT TO NUTRITION SERVICES 1 08/17/20 21 Isolation Count Last Ordered Date First Orde red Date INITIATE CONTACT ISOLATION 1 08/17/2021 INITIATE DROPLET ISOLATION 1 08/17/2021 documented in this encounter Additional Health Concerns Infection Onset Date Last Indicated Resolved Time Exposure, COVID-19 Comment:Negative Added automatically based on COVID19 lab answers indicating exposure risk 08/17/2021 08/17/2021 3:05 AM CDT COVID: Suspected 08/17/2021 08/17/2021 08/17/2021 2:17 PM CDT Rhino/Enterovirus Comment:Droplet - Rhino/Enterovirus 08/17/2021 08/17/202105/2021 3:06 AM CDT documented as of this encounter Care Teams Concrete Pourer Relationship Specialty Start Date End Date Kirt Lindsay DO PCP - General Internal Medicine 02/02/21 Josué Del Valle MD PhD Medical Oncologist/Senior Site Manager Medical Oncology 08/26/19 documented as of this encounter
--- OUTSIDE RECORDS SUMMARY | 2024-11-22 10:59 | XMS_ITS | Encounter Summary ---
Author Organization [facility] Address [address] [facility] [address] [place] [address] Phone Care Team Providers Care Channeler Outsole Name Role Phone Josué Del Valle MD PhD Unavailable [phone] Kirt Lindsay DO Primary Care Provider [phone] Reason for Visit * Oncology (Routine) - Canceled Specialty Diagnoses / Procedures Referred By Contact Referred To Contact Endocrinology Diabetes & Metabolism Diagnoses Type 2 diabetes mellitus with hyperosmolarity 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, with long-term current use of insulin (HCC) Osteopenia, unspecified location Ave Montejo MD Phone: tel:[phone] fax: Ave Montejo MD [address] [facility] [address] [place] [address] Phone: tel:[phone] fax:[phone] Referral ID Status Reason Start Date Expiration Date Visits Requested Visits Authorized [id number] Canceled Specialty Services Required 08/09/2021 02/05/2022 6 6 Encounter Details Date Type Department Care Team (Latest Contact Info) Description 08/11/2021 11:20 AM CDT Office Visit [facility] [address] [facility] [address] [place] [address] [place] [address] Ave Montejo MD [address] [facility] [address] [place] [address] Pure hypercholesterolemia (Primary Dx); Type 2 diabetes mellitus with hyperosmolarity 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, with long-term current use of insulin (CMS/HCC) (HCC); Osteopenia, unspecified location; Vitamin D deficiency Social History Tobacco Use Types Packs/Day Years [...] file 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 Gender Identity Not on file Sexual Orientation Not on file documented as of this encounter Last Filed Vital Signs Vital Sign Reading Time Taken Comments Blood Pressure 117/69 08/11/2021 11:13 AM CDT Pulse 61 08/11/2021 11:13 AM CDT Temperature 36.7 ??C (98.1 ??F) 08/11/2021 11:13 AM C DT Respiratory Rate 18 08/11/2021 11:13 AM CDT Oxygen Saturation 95% 08/11/2021 11:13 AM CDT Inhaled Oxygen Concentration - - Weight 65.4 kg (144 lb 3.2 oz) 08/11/2021 11:13 AM CDT Height - - Body Mass Index 20.11 07/17/2021 11:35 AM CDT documented in this encounter Patient Instructions * Patient Instructions* Ave Montejo MD - 08/11/2021 11:20 AM CDT - Recommend Reclast infusion once a Year of low bone density - Start 2 units of Novolog with meals - Correction 1:25 > 150 three times a day with meals Please call or message if sugars < 80 mg/dL documented in this encounter Progress Notes * Ave Montejo MD - 08/11/2021 11:20 AM CDT Subjective Mr. Jones is a 55 y.o. 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 He does not take prednisone currently. Used to take Basaglar 12 units once daily, and self-discontinued after Stopped basaglar after his sugars dropped; about 1-2 months ago Using Novolo:20 > 150 for correction several times per day. A1c is 8.1% today. Denies polyuria, polydipsia or blurry vision. For osteopenia, he takes over the counter calcium and consumes dairy, although does not drink milk.Continues on vit D 50,000IU weekly. Not on a PPI. Exercises occasionally, not as consistent, as he recently had eye surgery. He does not get regular dental care as he is edentulous. Notes his dentures do not feel right. He continues tobacco use. No falls or fractures since last visit. No other concerns today. DIAGNOSES: 1. 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 T2DM 4. Hyperlipidemia-on atorvastatin 5. Osteopenia. CURRENT MEDICATIONS: Current Outpatient Medications: ??? acyclovir (ZOVIRAX) 400 mg tablet, TAKE 1 TABLET(400 MG) BY MOUTH EVERY 8 HOURS (Patient takingdifferently: Take 400 mg by mouth 3 (three) times a day ), Disp: 270 tablet, Rfl: 1 ??? albuterol HFA (PROVENTIL HFA,VENTOLIN HFA,PROAIR HFA) 90 mcg/actuation inhaler, INHALE 1 TO 2 PUFFS BY MOUTH EVERY 4 HOURS NEEDED FOR WHEEZING (Patient taking differently: Inhale 1 puff every 6 (six) hours as needed ), Disp: 8.5 g, Rfl: 3 ??? atorvastatin (LIPITOR) 40 mg tablet, Take 1 tablet (40 mg total) by mouth daily (Patient takingdifferently: Take 40 mg by mouth every morning ), Disp: 30 tablet, Rfl: 6 ??? blood glucose diagnostic strip, Check blood sugar tid, Disp: 100 each, Rfl: 4 ??? blood-glucose meter misc, 1 Device 3 (three) times a day, Disp: 1 each, Rfl: 0 ??? ergocalciferol (VITAMIN D) 50,000 unit capsule, Take 1 capsule (50,000 Units total) by mouth once a week, Disp: 12 capsule, Rfl: 3 ??? gabapentin (NEURONTIN) 300 mg capsule, TAKE 1 CAPSULE BY MOUTH FOUR TIMES DAILY, Disp: 120 capsule, Rfl: 3 ??? guaifenesin (MUCINEX ORAL), Take 1 Dose by mouth as needed (COPD), Disp: , Rfl: ??? montelukast (SINGULAIR) 10 mg tablet, TAKE 1 TABLET BY MOUTH EVERY DAY (Patient taking differently: Take 10 mg by mouth daily before breakfast TAKE 1 TABLET BY MOUTH EVERY DAY), Disp: 90 tablet, Rfl: 0 ??? mycophenolate mofetil (CELLCEPT) 500 mg tablet, TAKE 2 TABLETS(1000 MG) BY MOUTH TWICE DAILY (Patient taking differently: Take 1,000 mg by mouth 2 (two) times a day ), Disp: 180 tablet, Rfl: 3 ??? ofloxacin (OCUFLOX) 0.3 % ophthalmic solution, Administer 1 drop into the left eye 4 (four) times a day, Disp: 5 mL, Rfl: 11 ??? omega-3 fatty acids (LOVAZA) 1 gram capsule, Take 1 g by mouth 2 (two) times a day , Disp: , Rfl: ??? oxygen, Administer 1 L/min into each nostril nightly Nightly and PRN, Disp: , Rfl: ??? tacrolimus (PROGRAF) 0.5 mg immediate-release capsule, TAKE 1 CAPSULE BY MOUTH EVERY OTHER DAY,Disp: 15 capsule, Rfl: 3 ??? Trelegy Ellipta 100-62.5-25 mcg inhaler, INHALE 1 PUFF BY MOUTH DAILY (Patient taking differently: Inhale 1 puff cap machine operator before breakfast ), Disp: 60 each, Rfl: 3 ??? voriCONAZOLE (VFEND) 200 mg tablet, Take 200 mg by mouth 2 (two) times a day , Disp: , Rfl: ??? Xarelto 20 mg tablet, TAKE 1 TABLET(20 MG) BY MOUTH DAILY (Patient taking differently: Take 20 mg by mouth cap machine operator before breakfast ), Disp: 30 tablet, Rfl: 1 ??? Alcohol Prep Pads pads, medicated, , Disp: , Rfl: ??? furosemide (LASIX) 20 mg tablet, Take 1 tablet (20 mg total) by mouth daily As needed. (Patienttaking differently: Take 20 mg by mouth daily as needed ), Disp: 30 tablet, Rfl: 0 ??? insulin glargine (LANTUS, BASAGLAR) 100 unit/mL (3 mL) pen for injection, INJECT 15 UNITS NIGHTLY SUB-Q. (Patient not taking: Reported on 08/11/2021), Disp: 1 pen, Rfl: 5 ??? insulin lispro (HumaLOG, ADMELOG) 100 unit/mL pen for injection, INJECT 5-10 UNITS TID WITH MEALS PLUS SLIDING SCALE. TDD OF 35 UNITS. (Patient not taking: Reported on 08/11/2021), Disp: 10 pen, Rfl: 6 ??? lancets 30 gauge misc, , Disp: , Rfl: ??? prednisoLONE acetate (PRED FORTE) 1 % ophthalmic suspension, Administer 1 drop into the left eye 4 (four) times a day (Patient not taking: Reported on 08/11/2021), Disp: 5 mL, Rfl: 11 Review of Systems: Review of Systems All other systems reviewed and are negative. As per HPI. Objective Vitals BP 117/69 (BP Location: Right arm) Pulse 61 Temp 36.7 ??C (98.1 ??F) (Transdermal) Resp 18 Wt 65.4 kg (144 lb 3.2 oz) SpO2 95% BMI 20.11 kg/m?? Physical Exam: Physical Exam Constitutional: Appearance: He is well-developed. HENT: Head: Normocephalic and atraumatic. Eyes: Conjunctiva/sclera: Conjunctivae normal. Cardiovascular: Rate and Rhythm: Normal rate and regular rhythm. Heart sounds: No murmur heard. Pulmonary: Breath sounds: Normal breath sounds. No wheezing or rales. Abdominal: General: Bowel sounds are normal. There is no distension. Palpations: Abdomen is soft. Tenderness: There is no abdominal tenderness. Musculoskeletal: General: No deformity. Comments: No tenderness to palpation of the spine Skin: General: Skin is warm. Findings: No erythema or rash. Neurological: Mental Status: He is oriented to person, place, and time. Lab/Radiology/Diagnostic Review: Laboratory review: reviewed the laboratory result(s) in the last 24 hours: Recent Results (from the past 24 hour(s)) Comprehensive metabolic panel Collection Time: 08/11/21 10:51 AM Result Value Ref Range Sodium 143 135 - 145 mmol/L Potassium, pl 4.3 3.3 - 4.9 mmol/L Chloride 105 97 - 110 mmol/L CO2 33 (H) 22 - 32 mmol/L Anion gap 5 2 - 15 mmol/L BUN 12 8 - 25 mg/dL Creatinine 0.82 0.80 - 1.30 mg/dL Glucose 222 (H) 70 - 199 mg/dL Calcium 9.6 8.5 - 10.3 mg/dL Bilirubin, total 0.3 0.1 - 1.2 mg/dL Protein, pl 6.8 6.5 - 8.5 g/dL Albumin 4.0 3.5 - 5.0 g/dL Alk phos 142 (H) 40 - 130 Units/L ALT 17 7 - 55 Units/L AST 25 10 - 50 Units/L eGFR Collection Time: 08/11/21 10:51 AM Result Value Ref Range eGFR >90 90 - 130 mL/min/1.73 m2 DEXA 07/2021 BONE MINERAL DENSITY OF THE LUMBAR SPINE [...] from the mean of young adults of -2.1. Femoral neck is 0.604 gm/cm2 with a T-score (standard deviations from the mean of young adults) of -2.4. When compared to the previous study of 08/07/2019 there has been a -0.049 gm/cm (-6.4%) decrease in bone density that is considered significant. Assessment /Plan Type 2 diabetes mellitus -better controlled off steroids - Start Novolog 2 units with meals, correction 1:25 >150 TID AC - Continue holding basaglar for now - Continue SBGM - Follow up with a dilated eye exam as previously scheduled - Follow up with CDE - Call for glycemic excursions Osteopenia -DEXA scan done today revealed sig decline in BMD of the spine. -will continue vitamin D supplementation and dietary calcium -weight bearing exercise -tobacco cessation -will dose Reclast once vit D replete Hyperlipidemia continue atorvastatin Vitamin D deficiency -levels low -will confirm that he is taking his 50,000IU weekly and 2,000IU daily; will likely need to increaseto 50,000IU twice per week and then repeat level Thank you for allowing me to participate in Mr. Jones's care. I will see him back in 3-4 months.He will call sooner with any questions or concerns. documented in this encounter Plan of Treatment Not on file documented as of this encounter Visit Diagnoses Diagnosis Pure hypercholesterolemia- Primary Type 2 diabetes mellitus with hyperosmolarity 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, with long-term current use of insulin (HCC) Osteopenia, unspecified location Vitamin D deficiency documented in this encounter Orders Appointment Requests Count Last Ordered Date Fi rst Ordered Date [facility] CLINIC APPOINTMENT REQUEST 1 021 documented in this encounter Care Teams Channeler Outsole Relationship Specialty Start Date End Date Kirt Lindsay DO PCP - General Internal Medicine 02/02/21 Josué Del Valle MD PhD Medical Oncologist/Wool Classer Medical Oncology 08/26/19 documented as of this encounter
--- OUTSIDE RECORDS SUMMARY | 2024-11-22 10:59 | XMS_ITS | Encounter Summary ---
Author Organization [facility] Address [address] [place] [address] Phone Care Team Providers Care Sales And Service Consultant Name Role Phone Josué Del Valle MD PhD Unavailable [phone] Kirt Lindsay DO Primary Care Provider [phone] Reason for Visit * Reason Onset Date Comments Schedule GI Procedure 09/08/2021 Encounter Details Date Type Department Care Team (Late st Contact Info) Description 09/08/2021 Telephone [facility] [address] [facility] [address] [place] [address] [place] [address] Daya Dailey LPN Schedule GI Procedure Social History Tobacco Use Types [...] on file 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 OK for patient to hold xarelto x 2 days prior to procedure. LMOVM with instructions. GRINDER * Telephone Encounter - Daya Dailey LPN - 09/28/2021 1:25 PM CST Called and spoke with Mellisa with Dr. Del Valle's office. Awaiting written instructions on patient'shold order. GRINDER * Telephone Encounter - Daya Dailey LPN - 09/25/2021 9:[address] Ayala's office to get recommendations and LM for someone to c/b. GRINDER * Telephone Encounter - Daya Dailey LPN - 09/08/2021 2:16 PM CDT PROCEDURE Type: ERCP for stent removal and biliary sphincterotomy Indication: stent removal and biliary sphincterotomy Referring Physician: Kirt García MD Date Referred: Repeat CLINICAL ASSESSMENT [x]COVID Screening questions [x] Covid vaccination yes []BMI>45, Weight >350 lbs BMI Readings from Last 1 Encounters: 09/07/21 20.81 kg/m?? Wt Readings from Last 1 Encounters: 09/07/21 65.8 kg (145 lb) [] Patient had GI procedure/CPAP clinic/GI clinic <30 days (if Yes, no medical screening questions needed unless new clinical issues in last 30 days) Medical screening questions: BMI/Weight: NA CARDIOVASCULAR: None RESPIRATORY/LUNG: COPD/asthma- If severe (FEV1 < 50% of predicted) or continuous O2 no SC. and None RENAL/LIVER/GI: None BLEEDING/CLOTTING: None NEUROLOGICAL: None ENDOCRINE: None PRIOR PROCEDURE ISSUES: None MILLER ROD MILL/: NA IMPLANTS.: None Notes: DIABETIC MEDS Y/N: No/NA []Yes- Discuss diabetes medication management with prescribing physician DIALYSIS Y/N: No/NA []HD- Schedule on non-HD day, see protocol []PD- Drain PD fluid AM of procedure, if colonoscopy order AB ppx, see protocol PACEMAKER/ICD Y/N: No/NA Device info: Last documented device check: Any shocks since last cards visit (if yes must see cardiology for procedure clearance): BLOOD THINNERS/ANTICOAG/ANTIPLATELET (BESIDES ASA) Medication: Rivaroxaban (Xarelto) Physician contacted for hold order/date sent: Dr. Del Valle Hold order Method sent: [employer] Fax Date hold received: Hold instructions: CONTINUE ASPIRIN INFORMATION REQUESTED []Imaging: []Medical Progress Note/H&P []Medication list []Other: PATIENT OPTIMIZATION []Physician reviewing escalation: []CPAP: Date scheduled: Outcome : [] Location limitations: Scheduling Scheduling location limitations: Contract Associate Manager needed [] NA Language: POA [] NA Name: SPECIAL PROCEDURE INSTRUCTIONS Scheduling Notes Procedure information Date of procedure: 10/03/2021 Time of procedure: 0900 Arrival time: 0800 Location: [facility] Proceduralist: Zoltan Instructions Method of instructions: Mailed copy and Verbal [x]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 ride/media 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 [x]Post anesthesia restrictions given [x]NPO Instructions: [x]Diet Instructions: [x]Take non-blood thinner prescription meds that morning [x]Bring med list, photo ID, insurance card, no valuables []Bring COVID vaccination card (if vaccinated) Bowel Prep Prep prescribed: NA Method of Bowel Prep (RX): NA * Telephone Encounter - Daya Dailey LPN - 09/08/2021 2:14 PM CDT ----- Message from Indy Baez RN sent at 09/08/2021 8:25 AM CDT ----- Regarding: Repeat ERCP for stent removal and biliary sphincterotomy in 4 weeks Lang 10.05.2021 Repeat ERCP for stent removal and biliary sphincterotomy in 4 weeks. documented in this encounter Plan of Treatment Not on file documented as of this encounter Visit Diagnoses Diagnosis Elevated LFTs- Primary Other abnormal blood chemistry Upper GI bleed Unspecified, hemorrhage of gastrointestinal tract documented in this encounter Care Teams Sales And Service Consultant Relationship Specialty Start Date End Date Kirt Lindsay DO PCP - General Internal Medicine 02/02/21 Josué Del Valle MD PhD Medical Oncologist/Back Up Scan Coordinator Medical Oncology 08/26/19 documented as of this encounter
--- OUTSIDE RECORDS SUMMARY | 2024-11-22 10:59 | XMS_ITS | Encounter Summary ---
Author Organization [facility] Address [address] [facility] [address] [place] [address] Phone Care Team Providers Care Retail Merchandising Manager Name Role Phone Josué Del Valle MD PhD Unavailable [phone] Kirt Lindsay DO Primary Care Provider [phone] Reason for Visit * Reason Comments Osteopenia * Diagnostic Imaging (Routine) - Closed Specialty Diagnoses / Procedures Referred By Contac t Referred To Contact Diagnoses Type 2 diabetes mellitus with hyperosmolarity 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, with long-term current use of insulin (HCC) Osteopenia, unspecified location Procedures Dexa Axial Skeleton Bone Density 1 or 2 Site Eneida Gibson MD Phone: tel: [facility] Referral ID Status Reason Start Date Expiration Date Visits Re quested Visits Authorized [id number] Closed 02/03/2021 03/05/2022 25 25 Encounter Details Date Type Department Care Team (Latest Contact Info) Description 08/11/2021 10:10 AM CDT Clinical Support [facility] [address] [facility] 5th [place] [address] [place] [address] Type 2 diabetes mellitus with hyperosmolarity 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, with long-term current use of insulin ([facility]) ([facility]); Osteopenia, unspecified location; Osteopenia of left hip; FPC (current) use of 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 Social History Tobacco Use Types Packs/Day Years [...] file 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 Gender Identity Not on file Sexual Orientation Not on file documented as of this encounter Plan of Treatment Not on file documented as of this encounter Procedures Procedure Name Priority Date/Time Associated Diagnosis Comments DEXA AXIAL SKELETON BONE DENSITY 1 OR MORE SITES Schedule Routine, Read Routine (OP Routine) 08/11/2021 10:36 AM CDT Type 2 diabetes mellitus with hyperosmolarity 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, with long-term current use of insulin ([facility]) ([facility]) Osteopenia, unspecified location documented in this encounter Results * Dexa Axial Skeleton Bone Density 1 or 2 Site (08/11/2021 10:36 AM CDT) Anatomical Region Laterality Modality Body N/A Radiographic Tiffany ging Narrative 08/16/2021 10:14 AM CDT Patient Name: Brady Jones Date of : 1965 Date of scan: 08/11/2021 Bone mineral density was performed on a [employer] Discovery Densitometer. ?? Based on machine cross-calibration and precision studies the least significant changes of this densitometer is 0.024 g/cm2 at the spine, 0.020 g/cm2 at the total proximal femur, and 0.014g/cm2 at the forearm. HISTORY: This is a 55 y.o. ?? male with a history of [...] and was previously treated with glucocorticoids. INDICATIONS: History of glucocorticoids use, vitamin D deficiency and history [...] decrease noted in the hip since the previous exam. ADDITIONAL COMMENTS: Postmenopausal Women and Men Over [...] interpretation were performed by Justine Banks M.D. ??who is certified by the International Society of Clinical Densitometry. [id number] Eneida Gibson MD IMG DXA PROCEDURES Final Result documented in this encounter Visit Diagnoses Diagnosis Type 2 diabetes mellitus with hyperosmolarity 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, with long-term current use of insulin (HCC) Osteopenia, unspecified location terminal operator (current) use of 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 Long-term (current) use of 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 documented in this encounter Care Teams Retail Merchandising Manager Relationship Specialty Start Date End Date Kirt Lindsay DO PCP - General Internal Medicine 02/02/21 Josué Del Valle MD PhD Medical Oncologist/Infusion Rn Medical Oncology 08/26/19 documented as of this encounter
--- OUTSIDE RECORDS SUMMARY | 2024-11-22 10:59 | XMS_ITS | Encounter Summary ---
Author Organization [facility] Address [address] [facility] [address] [place] [address] Phone Care Team Providers Care Blind Hanger Name Role Phone Josué Del Valle MD PhD Unavailable [phone] Kirt Lindsay DO Primary Care Provider [phone] Reason for Visit * Reason Comments Post-op Follow-up Encounter Details Date Type Department Care Team (Late st Contact Info) Description 08/09/2021 10:15 AM CDT Office Visit [facility] Ophthalmology [address] [facility] 6[address] [place] [id number] Ravi Hughes MD [address] [place] [id number] s/p CE/PCIOL OD 05/12/21 (Primary Dx); s/p CE/IOL OS 08/01/21 Social History Tobacco Use Types Packs/Day Years [...] on file 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 Post-op Follow-up HPI Post-op Follow-up In left eye. Discomfort includes Negative for pain, discharge, floaters, itching, foreign body sensation and tearing. Vision is improved. Comments 1 week POV s/p CE/PCIOL OS (08/01/21) 3 months s/p CE/PCIOL OD 05/12/21 Pt denies ocular pain/discomfort. Pt states vision has improved gtts PF BID OD (QID OS) Ofloxacin QID OS Equate dry eye relief PRN OU Last edited by Lorrie Salguero MD on 08/09/2021 10:21 AM. (History) Assessment/Plan Diagnoses and all orders for this visit: s/p CE/PCIOL OD 05/12/21 (Primary) Assessment & Plan: POM#3 status post (s/p) cataract extraction (CE)/IOL right eye (OD) 05/12/21 TODAY: -Doing well, central PCO present. 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 - Reviewed signs/symptoms endophthalmitis, RT/RD; patient to call immediately if any worsening vision, pain, redness, flashes/floaters/curtains - No lifting/bending/swimming. Champagne shield while sleeping, protective eyewear during day. - Restrictions released. - RTC 3 week Other orders - prednisoLONE acetate (PRED FORTE) 1 % ophthalmic suspension; Administer 1 drop into the left eye 4 (four) times a day I was present with the resident or fellow during the history and exam. I discussed this patient with the staff physician and agree with the findings and plan as documented in the staff physician's note. I have made corrections and additions as appropriate. Willam Hughes MD documented in this encounter Miscellaneous Notes * Assessment & Plan Note - Lorrie Salguero MD - 08/09/2021 10:25 AM CDT Associated Problem(s): s/p CE/IOL OS 08/01/21 POW #1 s/p CE/PCIOL - Doing well, vision and IOP as expected - Stop ofloxacin - Slow taper of PF given had likely rebound OD. - Reviewed signs/symptoms endophthalmitis, RT/RD; patient to call immediately if any worsening vision, pain, redness, flashes/floaters/curtains - No lifting/bending/swimming. Champagne shield while sleeping, protective eyewear during day. - Restrictions released. - RTC 3 week * Assessment & Plan Note - Lorrie Salguero MD - 08/09/2021 10:22 AM CDT Associated Problem(s): s/p CE/PCIOL OD 05/12/21 POM#3 status post (s/p) cataract extraction (CE)/IOL right eye (OD) 05/12/21 TODAY: -Doing well, central PCO present. 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) Administer 1 drop into both eyes 2 (two) times a day Therapy completed 04/03/2021 08/09/2021 sodium chloride (NOE 128) 2 % ophthalmic solutionIndications:Co rneal Edema Administer 1 drop into the right eye 4 (four) times a day Therapy completed 08/09/2021 prednisoLONE acetate (PRED FORTE) 1 % ophthalmic suspension Administer 1 drop into the right eye 4 (four) times a day Duplicate order 05/17/2021 08/09/2021 prednisoLONE acetate (PRED FORTE) 1 % ophthalmic suspension Administer 1 drop into the left eye 4 (four) times a day Duplicate order 08/01/2021 08/09/2021 documented as of this encounter Eye Exam Visual Acuity (Snellen - Linear) Right eye Left eye Dist sc 20/40 20/30 +1 Dist ph sc 20/30 Tonometry (Tonopen, 10:20 AM) Right eye Left eye Pressure 12 14 Pupils Pupils Dark Light Shape React APD Right eye PERRL 2 2 Round Minimal None Left eye PERRL 2 2 Round Minimal None Neuro/Psych Oriented x3: Yes Mood/Affect: Normal External Exam Right eye Left eye External edema Slit Lamp Exam Right eye Left eye Lids/Lashes Normal Normal Conjunctiva/Sclera White and quiet White and yaniv et Cornea trace amount of sube pi scarring inferior to pupil CCI Anterior Chamber Deep and quiet rare cell Iris Round and reactive Round and josé ctive Lens PCIOL, 1+ PCO PCIOL Care Teams Blind Hanger Relationship Specialty Start Date End Date Kirt Lindsay DO PCP - General Internal Medicine 02/02/21 Josué Del Valle MD PhD Medical Oncologist/Press Feeder Medical Oncology 08/26/19 documented as of this encounter
--- OUTSIDE RECORDS SUMMARY | 2024-11-22 10:59 | XMS_ITS | Encounter Summary ---
Author Organization [facility] Address [address] [place] [address] Phone Care Team Providers Care Inventory Coordinator Name Role Phone Josué Del Valle MD PhD Unavailable [phone] Kirt Lindsay DO Primary Care Provider [phone] Encounter Details Date Type Department Care Team (Late st Contact Info) Description 08/17/2021 Telephone [facility] Bone Marrow Transplant [address] [facility] 7th Floor, [place] [address] Justine Jones RN Social History Tobacco Use Types Packs/Day [...] file 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 He is on 5L O2 at home.Patient has been vaccinated for COVID and has had no known COVID exposures. Admitting to BMT service for management of URI. documented in this encounter Plan of Treatment Not on file documented as of this encounter Visit Diagnoses Not on filedocumented in this encounter Care Teams Inventory Coordinator Relationship Specialty Start Date End Date Kirt Lindsay DO PCP - General Internal Medicine 02/02/21 Josué Del Valle MD PhD Medical Oncologist/Certified Ophthalmic Assistant Medical Oncology 08/26/19 documented as of this encounter
--- OUTSIDE RECORDS SUMMARY | 2024-11-22 10:59 | XMS_ITS | Encounter Summary ---
Author Organization [facility] Address [address] [place] [address] Phone Care Team Providers Care Sand Mixer Name Role Phone Josué Del Valle MD PhD Unavailable [phone] Kirt Lindsay DO Primary Care Provider [phone] Encounter Details Date Type Department Care Team (Late st Contact Info) Description 08/21/2021 Orders Only [facility] Oncology [address] [facility] 7th [place] [address] [place] [phone] Ave Montejo MD [address] [facility] [address] [place] [address] Social History Tobacco Use Types Packs/Day Years [...] file 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
--- OUTSIDE RECORDS SUMMARY | 2024-11-22 10:59 | XMS_ITS | Encounter Summary ---
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 BP SpO2 09/07/21 0309 09/07/21 0309 09/07/21 0309 09/07/21 0309 09/07/21 0309 36.3 ??C (97.3 ??F) 104 18 108/74 [...] transplant in currently in remission complicated by pqwgq-mantxq-eepd disease who presents emergency department for evaluation [...] as of Sep 12 342 Time: 09/07 0501 Comment: Attending note: 55 [...] pathology. By: Anaid Kruse MD Time: 09/07 1039 Comment: Re-evaled. Having abdominal ttp worse epigastric/ruq/periumbilical. CT w/ possible infectious bronchiolitis. RUQ ultrasound w/ biliary stones and slude but no overt choleyctutis/choledocholithiasis. D bili elevated, elevated transaminases, elevated lipase. Plan to start meropenem to cover possible pneumonia and cholangitis. BMT fellow aware of lab abnormalities. Consulted Biliary service. By: Parmjit Pelayo MD Time: 09/07 3187 Comment: Biliary to eval By: Parmjit Pelayo MD Time: 09/07 6387 Comment: Taken to endo suite by biliary. By: Parmjit Pelayo MD Time: 09/07 1044 Comment: Teaching Resident Note: PMHX AML s/p [...] hospital By: Michael Parham MD Time: 09/07 2162 Comment: 1u prepared, explained to pt that [...] arrival: Car Comments: Kierra Anderson RN 09/07/21 4227 * Sylvia Carrillo RN - 09/07/2021 3:06 [...] you, Beata Rodríguez RN, BSN, CDI Email: [email or web address] Clinical Documentation C Developer * Provider Query - Aidan Carl MD [...] you, Beata Rodríguez RN, BSN, CDI Email: [email or web address] Clinical Documentation C Developer * Hospital Course - Aidan Carl MD - 09/10/2021 4:07 PM CDT 55-year-old gentleman with past medical history of AML, history of 7+ 3 induction, HiDAC consolidation, decitabine maintenance on CALBG 12836 protocol status post allogeneic stem cell transplant , day 0 11/09/2009, 10/10 matched sibling , history of chronic GVHD [...] of PE/DVT: DVT 2012, 2018, PE in 2013. Hold Xarelto due to GI bleed and [...] is S/p Busulfan and Cytoxan on the [facility] allogeneic study with his sister, 08/27 match; with day 0on 11/09/2009 after induction with 7+3 and HiDAC consolidation x3. Followed by Decitabine maintenance on the CALGB 06527 protocol and relapsed disease, status post [facility]. 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 He was OI prophylaxis, acyclovir. We continued upon discharge. 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 We [...] currentlyresting comfortably in bed. 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 and tacro 2.5 mg every other day, Tacrolimus level in a.m. normal range Continue PF eye drops * Assessment & Plan Note - Aidan Carl MD - 09/08/2021 12:12 PM CDT Associated Problem(s): AML s/p Allo SCT in 2008 -S/p Busulfan and Cytoxan on the [facility] allogeneic study with his sister, 08/27 match; with day 0 on 11/09/2009??after induction with 7+3 and HiDAC consolidation x3.??Followed by??Decitabine maintenanceon the CALGB 32141 protocol??and relapsed disease, status post AMD/MEC. -??Complicated [...] checks. * Assessment & Plan Note - Adian Carl MD - 09/08/2021 12:09 PM CDT Associated Problem(s): Elevated LFTs -acute hepatitis panel negative/Improving after ERCP -ERCP findings as above -status post biliary stent placement. -ALk getting worse sent GGT to investigate contributory etiology -monitor LFTs: AST and ALT improving -trend lipase: normalized -IV fluids * Assessment & Plan Note - Adian Carl MD - 09/08/2021 12:08 PM CDT [...] noon * Plan of Care - Mala Aiken RRT - 09/08/2021 10:40 AM CDT Pt demonstrated proper technique with inhalers. RN to administer * Plan of Care - Bonnie Tran RN - 09/07/2021 8:48 PM CDT Goals: Clinical Goals for the Shift: admit Summary: * ED Re-evaluation Note - Michael Parham MD - 09/07/2021 3:05 PM CDT ED Re-evaluation TRANSITION OF CARE: I, Michael Parham MD, am taking signout from Pierce (Resident) [...] pathology. By: Anaid Kruse MD Time: 09/07 528 Comment: Re-evaled. Having abdominal ttp worse epigastric/ruq/periumbilical. CT w/ possible infectious bronchiolitis. RUQ ultrasound w/ biliary stones and slude but no overt choleyctutis/choledocholithiasis. D bili elevated, elevated transaminases, elevated lipase. Plan to start meropenem to cover possible pneumonia and cholangitis. BMT fellow aware of lab abnormalities. Consulted Biliary service. By: Parmjit Pelayo MD Time: 09/07 6364 Comment: Biliary to eval By: Parmjit Pelayo MD Time: 09/07 5299 Comment: Taken to endo suite by biliary. By: Parmjit Pealyo MD Time: 09/07 1505 Comment: Teaching Resident Note: PMHX AML s/p transplant c/b GVHD, DM, COPD. N/V. Thought to be 2/2 cholelithiasis. To ERCP, found blood in stomach, became hypotensive. Will return to ER. Being admitted to BMT, but will need re-eval prior dispo. ?resuscitation? By: Brady Lazar MD Time: 09/07 3855 Comment: On re-eval, pt feels much better and is on the phone about to call his ride to take him home. Denies any sx including abdominal pain. He agrees to hold off on calling his ride until we can get some re-peat lab work and understands the high likelihood that we will recommend admission to hospital By: Michael Parham MD Time: 09/07 2910 Comment: 1u prepared, explained to pt that [...] pathology. By: Anaid Kruse MD Time: 09/07 1039 Comment: Re-evaled. Having abdominal ttp worse epigastric/ruq/periumbilical. [...] eval By: Parmjit Pelayo MD Time: 09/07 4657 Comment: Taken to endo suite by biliary. By: Parmjit Pelayo MD Time: 09/07 6317 Comment: Teaching Resident Note: PMHX AML s/p [...] * POCT glucose (09/10/2021 12:02 PM CDT) Glucose, POC 80 70 - 199 mg/dL [facility] Glucose comment 1 RN Notified [facility] Blood 09/10/2021 12:0 2 PM CDT 09/10/2021 12:02 PM CDT Anaid Kruse MD LAB POCT ORDERABLES - DEVICE Final Result Performing Organization Address [facility] Co de Phone Number [facility] [place] [employer] [place] [address] * Tacrolimus level trough (09/10/2021 9:05 AM CDT) Pathologist [facility] [place] Tacrolimus trough 2.5 ng/mL [facility] Comment: Interpretive Data Testing performed by liquid chromatography-tandem mass spectrometry. ??Therapeutic concentrations vary depending on type of transplanted organ and time elapsed since transplant. ??Typical trough concentrations range from 5-15 ng/mL. ??This test was developed and its performance characteristics determined by the [facility] consistent with CLIA requirements. ??This test has not been cleared or approved by the [place] Food and Drug administration. ??Current interpretive data last reviewed 2020. Blood 09/10/2021 9:05 AM CDT 09/10/2021 9:31 AM CDT Aidan Carl MD LAB BLOOD ORDERABLES Final Re sult Performing Organization Address [facility]/ZIP Co de Phone Number [facility] [place] [employer] [place] [address] * (ABNORMAL) Gamma GT (09/10/2021 9:05 AM CDT) Pathologist [facility] [place] GGT 479(H) 10 - 50 Units/L [facility] Blood 09/10/2021 9:05 AM CDT 09/10/2021 9:31 AM CDT Aidan Carl MD LAB BLOOD ORDERABLES Final Re sult Performing Organization Address [facility] Co de Phone Number [facility] Department [place] [address] * POCT glucose (09/10/2021 7:17 AM CDT) [facility] Glucose, POC 163 70 - 199 mg/dL [facility] Glucose comment 1 RN Notified [facility] Blood 09/10/2021 7:17 AM CDT 09/10/2021 7:17 AM CDT Anaid Kruse MD LAB POCT ORDERABLES - DEVICE Final Result Performing Organization Address [facility] de Phone Number [facility] Department [place] [address] * eGFR (09/10/2021 12:54 AM CDT) [facility] eGFR >90 90 - 130 mL/min/1.7 3 m2 [facility] Comment: Interpretive Data Reference Interval Normal ?>/= [...] MD LAB BLOOD ORDERABLES Final Resul t [facility] Department [place] [address] * (ABNORMAL) Manual Differential (09/10/2021 12:54 AM CDT) Differential Manual [facility] Cells Counted 115 [facility] Neutrophil abs 15.9(H) 1.7 - 6.5 K/cumm [facility] Imm gran abs 0.2(H) 0.0 - 0.1 K/cumm [facility] Lymphocyte abs 1.6 0.8 - 3.3 K/cumm [facility] Monocyte abs 1.2(H) 0.2 - 0.8 K/cumm [facility] Neutrophil pct 84.3 % [facility] Comment: Interpretive Data Percent cell count reference ranges are not reported, since discordance with absolute values may lead to misinterpretation of CBC data. Current Interpretive Data was last revised on 2018. Lymphocyte pct 8.7 % [facility] Comment: Interpretive Data Percent cell count reference ranges are not reported, since discordance with absolute values may lead to misinterpretation of CBC data. Current Interpretive Data was last revised on 2018. Monocyte pct 6.1 % [facility] Comment: Interpretive Data Percent cell count reference ranges are not reported, since discordance with absolute values may lead to misinterpretation of CBC data. Current Interpretive Data was last revised on 2018. Myelocyte pct 0.9 % [facility] RBC morphology Present(A) [facility] Anisocytosis Slight(A) [facility] Poikilocytosis Slight(A) [facility] Macrocytes 3-7/HPF(A) [facility] Platelet estimate Decreased( A) [facility] Blood 09/10/2021 12:5 4 AM CDT 09/10/2021 1:26 AM CDT us Jerry Carpenter MD LAB BLOOD ORDERABLES Edited Resu lt - Final [facility] Department [place] [address] * (ABNORMAL) CBC without differential (09/10/2021 12:54 AM CDT) WBC 18.9(H) 3.8 - 9.9 K/cumm [facility] Hgb 12.7(L) 13.0 - 17.5 g/dL [facility] Hct 37.8(L) 38.9 - 50.3 % [facility] Plt 115(L) 150 - 400 K/cumm [facility] MPV 11.1 9.1 - 12.3 fL [facility] RBC 3.81(L) 4.30 - 5.80 M/cumm [facility] MCV 99.2(H) 81.3 - 96.4 fL [facility] MCH 33.3 27.1 - 33.3 pg [facility] MCHC 33.6 32.3 - 35.7 g/dL [facility] RDW CV 15.9(H) 11.1 - 14.9 % [facility] RDW SD 55.5(H) 35.7 - 48.1 fL [facility] NRBC abs 0.68(H) 0.00 - 0.01 K/cumm [facility] Blood 09/10/2021 12:5 4 AM CDT 09/10/2021 1:26 AM CDT us Jerry Carpenter MD LAB BLOOD ORDERABLES Final Resul t Performing Organization Address City/[facility] Co de Phone Number [facility] Department [place] [address] * Lipase (09/10/2021 12:54 AM CDT) Pathologist [facility] [place] Lipase 37 10 - 99 Units/L [facility] Blood 09/10/2021 12:5 4 AM CDT 09/10/2021 1:26 AM CDT us Jerry Carpenter MD LAB BLOOD ORDERABLES Final Resul t Performing Organization Address [facility] de Phone Number [facility] Department [place] [address] * (ABNORMAL) Comprehensive metabolic panel (09/10/2021 12:54 AM CDT) [facility] Sodium 139 135 - 145 mmol/L [facility] Potassium, pl 3.6 3.3 - 4.9 mmol/L [facility] Chloride 98 97 - 110 mmol/L [facility] CO2 29 22 - 32 mmol/L [facility] Anion gap 12 2 - 15 mmol/L [facility] BUN 12 8 - 25 mg/dL [facility] Creatinine 0.84 0.80 - 1.30 mg/dL [facility] Glucose 145 70 - 199 mg/dL [facility] Comment: Interpretive Data Fasting glucose >/= 126 [...] 2017. Calcium 9.0 8.5 - 10.3 mg/dL [facility] Bilirubin, total 2.0(H) 0.1 - 1.2 mg/dL [facility] Protein, pl 7.0 6.5 - 8.5 g/dL [facility] Albumin 3.4(L) 3.5 - 5.0 g/dL [facility] Alk phos 511(H) 40 - 130 Units/L [facility] ALT 823(H) 7 - 55 Units/L [facility] AST 86(H) 10 - 50 Units/L [facility] Blood 09/10/2021 12:5 4 AM CDT 09/10/2021 1:26 AM CDT us Jerry Carpenter MD LAB BLOOD ORDERABLES Final Resul t Performing Organization Address [facility] de Phone Number [facility] Department [place] [place] [address] * Tacrolimus level trough (09/10/2021 12:54 AM CDT) [facility] Tacrolimus trough 2.9 ng/mL [facility] Comment: Interpretive Data Testing performed by liquid chromatography-tandem mass spectrometry. ??Therapeutic concentrations vary depending on type of transplanted organ and time elapsed since transplant. ??Typical trough concentrations range from 5-15 ng/mL. ??This test was developed and its performance characteristics determined by the [facility] consistent with CLIA requirements. ??This test has not been cleared or approved by the [place] Food and Drug administration. ??Current interpretive data last reviewed 2020. Blood 09/10/2021 12:5 4 AM CDT 09/10/2021 1:26 AM CDT Narrative [facility] - 09/10/2021 7:20 AM CDT Draw within 30 minutes of AM dose. us Jerry Carpenter MD LAB BLOOD ORDERABLES Final Resul t Performing Organization Address [facility] de Phone Number [facility] Department [place] [address] * Phosphorus (09/10/2021 12:54 AM CDT) Phosphorus, pl 2.6 2.3 - 4.5 mg/dL [facility] Blood 09/10/2021 12:5 4 AM CDT 09/10/2021 1:26 AM CDT Jerry Carpenter MD LAB BLOOD ORDERABLES Final Resul t [facility] [place] [address] * Magnesium (09/10/2021 12:54 AM CDT) [facility] Signature Magnesium 1.6 1.4 - 2.5 mg/dL [facility] Blood 09/10/2021 12:5 4 AM CDT 09/10/2021 1:26 AM CDT Jerry Carpenter MD LAB BLOOD ORDERABLES Final Resul t Performing Organization Address City/[facility]/ZIP Co de Phone Number [facility] [place] [address] * POCT glucose (09/09/2021 9:37 PM CDT) Glucose, POC 171 70 - 199 mg/dL [facility] Blood 09/09/2021 9:37 PM CDT 09/09/2021 9:37 PM CDT Anaid Kruse MD LAB POCT ORDERABLES - DEVICE Final Result Performing Organization Address City/[facility]/ZIP Co de Phone Number [facility] [place] [address] * POCT glucose (09/09/2021 7:01 PM CDT) Glucose, POC 180 70 - 199 mg/dL [facility] Blood 09/09/2021 7:01 PM CDT 09/09/2021 7:01 PM CDT Anaid Kruse MD LAB POCT ORDERABLES - DEVICE Final Result Performing Organization Address [facility] Co de Phone Number [facility] [place] [employer] [place] [address] * POCT glucose (09/09/2021 12:10 PM CDT) Glucose, POC 114 70 - 199 mg/dL [facility] Blood 09/09/2021 12:1 0 PM CDT 09/09/2021 12:10 PM CDT Anaid Kruse MD LAB POCT ORDERABLES - DEVICE Final Result Performing Organization Address [facility] Co de Phone Number [facility] [place] [employer] [place] [address] * POCT glucose (09/09/2021 8:10 AM CDT) [facility] Signature Glucose, POC 119 70 - 199 mg/dL [facility] Blood 09/09/2021 8:10 AM CDT 09/09/2021 8:10 AM CDT Anaid Kruse MD LAB POCT ORDERABLES - DEVICE Final Result Performing Organization Address [facility] [place] [address] * (ABNORMAL) eGFR (09/09/2021 3:10 AM CDT) eGFR 85(L) 90 - 130 mL/min/1.7 3 m2 [facility] Comment: Interpretive Data Reference Interval Normal ?>/= [...] Kruse MD LAB BLOOD ORDERABLES Final Result [facility] Department [place] [address] * (ABNORMAL) Comprehensive metabolic panel (09/09/2021 3:10 AM CDT) Sodium 137 135 - 145 mmol/L [facility] Potassium, pl 3.7 3.3 - 4.9 mmol/L [facility] Chloride 97 97 - 110 mmol/L [facility] CO2 30 22 - 32 mmol/L [facility] Anion gap 10 2 - 15 mmol/L [facility] BUN 23 8 - 25 mg/dL [facility] Creatinine 1.00 0.80 - 1.30 mg/dL [facility] Glucose 159 70 - 199 mg/dL [facility] Comment: Interpretive Data Fasting glucose >/= 126 [...] 2017. Calcium 8.9 8.5 - 10.3 mg/dL [facility] Bilirubin, total 1.9(H) 0.1 - 1.2 mg/dL [facility] Protein, pl 6.4(L) 6.5 - 8.5 g/dL [facility] Albumin 3.2(L) 3.5 - 5.0 g/dL [facility] Alk phos 303(H) 40 - 130 Units/L [facility] ALT 1,057(H) 7 - 55 Units/L [facility] AST 98(H) 10 - 50 Units/L [facility] Blood 09/09/2021 3:10 AM CDT 09/09/2021 3:22 AM CDT us Anaid Kruse MD LAB BLOOD ORDERABLES Final Result Performing Organization Address City/[facility] Co de Phone Number [facility] Department [place] [address] * (ABNORMAL) Phosphorus (09/09/2021 3:10 AM CDT) [facility] Phosphorus, pl 0.9(L) 2.3 - 4.5 mg/dL [facility] Blood 09/09/2021 3:10 AM CDT 09/09/2021 3:22 AM CDT us Anaid Kruse MD LAB BLOOD ORDERABLES Final Result [facility] [place] [address] * Magnesium (09/09/2021 3:10 AM CDT) [facility] Magnesium 1.5 1.4 - 2.5 mg/dL [facility] Blood 09/09/2021 3:10 AM CDT 09/09/2021 3:22 AM CDT us Anaid Kruse MD LAB BLOOD ORDERABLES Final Result Performing Organization Address [facility] Co de Phone Number [facility] Department [place] [address] * Lipase (09/09/2021 3:10 AM CDT) [facility] Lipase 95 10 - 99 Units/L [facility] Blood 09/09/2021 3:10 AM CDT 09/09/2021 3:22 AM CDT us Anaid Kruse MD LAB BLOOD ORDERABLES Final Result Performing Organization Address [facility] Co de Phone Number [facility] [place] [address] * (ABNORMAL) Manual Differential (09/09/2021 12:35 AM CDT) [facility] Differential Manual [facility] Cells Counted 114 [facility] Neutrophil abs 14.8(H) 1.7 - 6.5 K/cumm [facility] Imm gran abs 0.0 0.0 - 0.1 K/cumm [facility] Lymphocyte abs 1.0 0.8 - 3.3 K/cumm [facility] Monocyte abs 0.3 0.2 - 0.8 K/cumm [facility] Eosinophil abs 0.2 0.0 - 0.5 K/cumm [facility] Neutrophil pct 91.2 % [facility] Comment: Interpretive Data Percent cell count reference ranges are not reported, since discordance with absolute values may lead to misinterpretation of CBC data. Current Interpretive Data was last revised on 2018. Lymphocyte pct 6.1 % [facility] Comment: Interpretive Data Percent cell count reference ranges are not reported, since discordance with absolute values may lead to misinterpretation of CBC data. Current Interpretive Data was last revised on 2018. Monocyte pct 1.8 % [facility] Comment: Interpretive Data Percent cell count reference ranges are not reported, since discordance with absolute values may lead to misinterpretation of CBC data. Current Interpretive Data was last revised on 2018. Eosinophil pct 0.9 % [facility] Comment: Interpretive Data Percent cell count reference ranges are not reported, since discordance with absolute values may lead to misinterpretation of CBC data. Current Interpretive Data was last revised on 2018. RBC morphology Present(A) [facility] Anisocytosis Moderate(A ) [facility] Poikilocytosis Moderate(A ) [facility] Macrocytes 8-15/HPF(A ) [facility] Platelet estimate Decreased( A) [facility] Blood 09/09/2021 12:3 5 AM CDT 09/09/2021 12:53 AM CDT us Jerry Carpenter MD LAB BLOOD ORDERABLES Edited Resu lt - Final [facility] Department [place] [address] * (ABNORMAL) CBC without differential (09/09/2021 12:35 AM CDT) WBC 16.2(H) 3.8 - 9.9 K/cumm [facility] Hgb 12.2(L) 13.0 - 17.5 g/dL [facility] Hct 33.7(L) 38.9 - 50.3 % [facility] Plt 122(L) 150 - 400 K/cumm [facility] MPV 14.0(H) 9.1 - 12.3 fL [facility] RBC 3.40(L) 4.30 - 5.80 M/cumm [facility] MCV 99.1(H) 81.3 - 96.4 fL [facility] MCH 35.9(H) 27.1 - 33.3 pg [facility] MCHC 36.2(H) 32.3 - 35.7 g/dL [facility] RDW CV 16.7(H) 11.1 - 14.9 % [facility] RDW SD 57.6(H) 35.7 - 48.1 fL [facility] NRBC abs 0.67(H) 0.00 - 0.01 K/cumm [facility] Blood 09/09/2021 12:3 5 AM CDT 09/09/2021 12:53 AM CDT Jerry Carpenter MD LAB BLOOD ORDERABLES Final Resul t Performing Organization Address City/[facility]/ZIP Co de Phone Number [facility] [place] [address] * POCT glucose (09/08/2021 9:24 PM CDT) Glucose, POC 150 70 - 199 mg/dL [facility] Blood 09/08/2021 9:24 PM CDT 09/08/2021 9:24 PM CDT us Anaid Kruse MD LAB POCT ORDERABLES - DEVICE Final Result [facility] [place] [place] [address] * POCT glucose (09/08/2021 5:56 PM CDT) Glucose, POC 143 70 - 199 mg/dL [facility] Blood 09/08/2021 5:56 PM CDT 09/08/2021 5:56 PM CDT us Anaid Kruse MD LAB POCT ORDERABLES - DEVICE Final Result Performing Organization Address [facility] [place] [address] * POCT glucose (09/08/2021 12:30 PM CDT) Glucose, POC 162 70 - 199 mg/dL [facility] Blood 09/08/2021 12:3 0 PM CDT 09/08/2021 12:30 PM CDT Anaid Kruse MD LAB POCT ORDERABLES - DEVICE Final Result Performing Organization Address [facility] Co de Phone Number [facility] [place] [address] * POCT glucose (09/08/2021 8:58 AM CDT) Glucose, POC 109 70 - 199 mg/dL [facility] Blood 09/08/2021 8:58 AM CDT 09/08/2021 8:58 AM CDT Anaid Kruse MD LAB POCT ORDERABLES - DEVICE Final Result Performing Organization Address [facility] Co de Phone Number [facility] [place] [place] [address] * eGFR (09/08/2021 4:47 AM CDT) eGFR >90 90 - 130 mL/min/1.7 3 m2 [facility] Comment: Interpretive Data Reference Interval Normal ?>/= [...] MD LAB BLOOD ORDERABLES Final Resul t [facility] [place] [address] * (ABNORMAL) Manual Differential (09/08/2021 4:47 AM CDT) Differential Manual [facility] Cells Counted 114 [facility] Neutrophil abs 14.1(H) 1.7 - 6.5 K/cumm [facility] Imm gran abs 0.0 0.0 - 0.1 K/cumm [facility] Lymphocyte abs 1.4 0.8 - 3.3 K/cumm [facility] Monocyte abs 0.1(L) 0.2 - 0.8 K/cumm [facility] Eosinophil abs 0.3 0.0 - 0.5 K/cumm [facility] Neutrophil pct 88.5 % [facility] Comment: Interpretive Data Percent cell count reference ranges are not reported, since discordance with absolute values may lead to misinterpretation of CBC data. Current Interpretive Data was last revised on 2018. Lymphocyte pct 8.8 % [facility] Comment: Interpretive Data Percent cell count reference ranges are not reported, since discordance with absolute values may lead to misinterpretation of CBC data. Current Interpretive Data was last revised on 2018. Monocyte pct 0.9 % [facility] Comment: Interpretive Data Percent cell count reference ranges are not reported, since discordance with absolute values may lead to misinterpretation of CBC data. Current Interpretive Data was last revised on 2018. Eosinophil pct 1.8 % [facility] Comment: Interpretive Data Percent cell count reference ranges are not reported, since discordance with absolute values may lead to misinterpretation of CBC data. Current Interpretive Data was last revised on 2018. RBC morphology Present(A) [facility] Polychromasia 3-7/HPF(A) [facility] Anisocytosis Marked(A) [facility] Poikilocytosis Moderate(A ) [facility] Macrocytes > 15/HPF(A) [facility] Schistocytes 1-2/HPF(A) [facility] Target cells 8-15/HPF(A ) [facility] Platelet estimate Decreased( A) [facility] Blood 09/08/2021 4:47 AM CDT 09/08/2021 5:17 AM CDT us Jerry Carpenter MD LAB BLOOD ORDERABLES Edited Resu lt - Final [facility] [place] [address] * (ABNORMAL) CBC without differential (09/08/2021 4:47 AM CDT) WBC 15.9(H) 3.8 - 9.9 K/cumm [facility] Hgb 11.1(L) 13.0 - 17.5 g/dL [facility] Hct 31.2(L) 38.9 - 50.3 % [facility] Plt 126(L) 150 - 400 K/cumm [facility] MPV 11.5 9.1 - 12.3 fL [facility] RBC 3.21(L) 4.30 - 5.80 M/cumm [facility] MCV 97.2(H) 81.3 - 96.4 fL [facility] MCH 34.6(H) 27.1 - 33.3 pg [facility] MCHC 35.6 32.3 - 35.7 g/dL [facility] RDW CV 15.0(H) 11.1 - 14.9 % [facility] RDW SD 53.4(H) 35.7 - 48.1 fL [facility] NRBC abs 0.42(H) 0.00 - 0.01 K/cumm [facility] Blood 09/08/2021 4:47 AM CDT 09/08/2021 5:17 AM CDT us Jerry Carpenter MD LAB BLOOD ORDERABLES Final Resul t Performing Organization Address City/[facility]/ZIP Co de Phone Number [facility] [place] [address] * (ABNORMAL) Lipase (09/08/2021 4:47 AM CDT) Pathologist [facility] [place] Lipase 313(H) 10 - 99 Units/L [facility] Blood 09/08/2021 4:47 AM CDT 09/08/2021 5:17 AM CDT us eJrry Carpenter MD LAB BLOOD ORDERABLES Final Resul t Performing Organization Address City/[facility]/ZIP Co de Phone Number [facility] [place] [address] * (ABNORMAL) Comprehensive metabolic panel (09/08/2021 4:47 AM CDT) [facility] Sodium 141 135 - 145 mmol/L [facility] Potassium, pl 4.1 3.3 - 4.9 mmol/L [facility] Comment:Hemolyzed; Potassium value may be falsely elevated by as much as 0.3-0.5 mmol/L. Suggest redraw and reanalysis. Chloride 105 97 - 110 mmol/L [facility] CO2 29 22 - 32 mmol/L [facility] Anion gap 7 2 - 15 mmol/L [facility] BUN 29(H) 8 - 25 mg/dL [facility] Creatinine 0.87 0.80 - 1.30 mg/dL [facility] Glucose 156 70 - 199 mg/dL [facility] Comment: Interpretive Data Fasting glucose >/= 126 [...] 2017. Calcium 8.4(L) 8.5 - 10.3 mg/dL [facility] Bilirubin, total 2.4(H) 0.1 - 1.2 mg/dL [facility] Protein, pl 5.3(L) 6.5 - 8.5 g/dL [facility] Albumin 2.7(L) 3.5 - 5.0 g/dL [facility] Alk phos 179(H) 40 - 130 Units/L [facility] ALT 1,335(H) 7 - 55 Units/L [facility] AST 160(H) 10 - 50 Units/L [facility] Comment:Hemolyzed; result ma y be falsely elevated Blood 09/08/2021 4:47 AM CDT 09/08/2021 5:17 AM CDT us Jerry Carpenter MD LAB BLOOD ORDERABLES Final Resul t [facility] [place] [address] * (ABNORMAL) Phosphorus (09/08/2021 4:47 AM CDT) Phosphorus, pl 1.2(L) 2.3 - 4.5 mg/dL [facility] Blood 09/08/2021 4:47 AM CDT 09/08/2021 5:17 AM CDT us Jerry Carpenter MD LAB BLOOD ORDERABLES Final Resul t Performing Organization Address [facility] de Phone Number [facility] [place] [address] * Magnesium (09/08/2021 4:47 AM CDT) Magnesium 1.7 1.4 - 2.5 mg/dL [facility] Blood 09/08/2021 4:47 AM CDT 09/08/2021 5:17 AM CDT us Jerry Carpenter MD LAB BLOOD ORDERABLES Final Resul t Performing Organization Address [facility] de Phone Number [facility] [place] [address] * (ABNORMAL) Urinalysis, microscopic only (09/08/2021 2:15 AM CDT) WBC, ur 0-5 0 - 5 /HPF [facility] RBC, ur 3-5(A) 0 - 2 /HPF [facility] Mucous, ur Present(A) [facility] Hyaline casts, ur 1-5 0 - 10 /LPF [facility] Culture Reflex Comment Reflex conditions for urine culture (WBC >10) not met. [facility] Urine 09/08/2021 2:15 AM CDT 09/08/2021 2:28 AM CDT us Jerry Carpenter MD LAB URINE ORDERABLES Final Resul t Performing Organization Address [facility] de Phone Number [facility] [place] [address] * (ABNORMAL) Urinalysis reflex to microscopic and culture Urine (09/08/2021 2:15 AM CDT) Pathologist [facility] [place] Color, ur Yellow Yellow [facility] Clarity, ur Clear Clear [facility] Specific gravity, ur >1.042(H) 1.003 - 1.030 [facility] pH, urine 6 [facility] Protein, ur ql 1+(A) Negative [facility] Glucose, ur ql 3+(A) Negative [facility] Ketones, ur 1+(A) Negative [facility] Bilirubin, ur Negative Negative [facility] Blood, ur Negative Negative [facility] Urobilinogen, ur 2.0(A) <2.0 mg/dL [facility] Nitrite, ur Negative Negative [facility] Leukocyte esterase, ur Negative Negative [facility] UA reflex comment Reflex to microscopic UA will be performed. [facility] Urine 09/08/2021 2:15 AM CDT 09/08/2021 2:15 AM CDT Narrative [facility] - 09/08/2021 3:35 AM CDT Obtain with INITIAL infection work up. Urine pH is affected by diet, medications, systemic acid-base disturbances, and renal tubular function. ??pH may affect urinary stone formation. ??For example, urine pH below 6.0 may help reduce the tendency for calcium phosphate stones and pH greater than 6.0 may reduce the tendency for uric acid stone formation. Source: [facility] [employer]. Last revised 11-28-2017 us Jerry Carpenter MD LAB MICROBIOLOGY - GENERAL ORDER SUBHA Final Result [facility] [place] [address] * (ABNORMAL) eGFR (09/07/2021 10:06 PM CDT) [facility] eGFR 87(L) 90 - 130 mL/min/1.7 3 m2 [facility] Comment: Interpretive Data Reference Interval Normal ?>/= [...] MD LAB BLOOD ORDERABLES Final Resul t [facility] [place] [address] * (ABNORMAL) Manual Differential (09/07/2021 10:06 PM CDT) Differential Manual [facility] Cells Counted 116 [facility] Neutrophil abs 14.8(H) 1.7 - 6.5 K/cumm [facility] Imm gran abs 0.0 0.0 - 0.1 K/cumm [facility] Lymphocyte abs 0.6(L) 0.8 - 3.3 K/cumm [facility] Monocyte abs 1.0(H) 0.2 - 0.8 K/cumm [facility] Eosinophil abs 0.2 0.0 - 0.5 K/cumm [facility] Neutrophil pct 89.7 % [facility] Comment: Interpretive Data Percent cell count reference ranges are not reported, since discordance with absolute values may lead to misinterpretation of CBC data. Current Interpretive Data was last revised on 2018. Lymphocyte pct 3.4 % [facility] Comment: Interpretive Data Percent cell count reference ranges are not reported, since discordance with absolute values may lead to misinterpretation of CBC data. Current Interpretive Data was last revised on 2018. Monocyte pct 6.0 % [facility] Comment: Interpretive Data Percent cell count reference ranges are not reported, since discordance with absolute values may lead to misinterpretation of CBC data. Current Interpretive Data was last revised on 2018. Eosinophil pct 0.9 % [facility] Comment: Interpretive Data Percent cell count reference ranges are not reported, since discordance with absolute values may lead to misinterpretation of CBC data. Current Interpretive Data was last revised on 2018. RBC morphology Present(A) [facility] Polychromasia 3-7/HPF(A) [facility] Anisocytosis Marked(A) [facility] Poikilocytosis Slight(A) [facility] Macrocytes > 15/HPF(A) [facility] Target cells 3-7/HPF(A) [facility] Echinocytes 3-7/HPF(A) [facility] Platelet estimate Adequate [facility] Blood 09/07/2021 10:0 6 PM CDT 09/07/2021 10:14 PM CDT us Jerry Carpenter MD LAB BLOOD ORDERABLES Final Resul t [facility] [place] [address] * (ABNORMAL) CBC without differential (09/07/2021 10:06 PM CDT) WBC 16.5(H) 3.8 - 9.9 K/cumm [facility] Hgb 13.9 13.0 - 17.5 g/dL [facility] Hct 40.7 38.9 - 50.3 % [facility] Plt 173 150 - 400 K/cumm [facility] MPV 11.1 9.1 - 12.3 fL [facility] RBC 4.18(L) 4.30 - 5.80 M/cumm [facility] MCV 97.4(H) 81.3 - 96.4 fL [facility] MCH 33.3 27.1 - 33.3 pg [facility] MCHC 34.2 32.3 - 35.7 g/dL [facility] RDW CV 15.0(H) 11.1 - 14.9 % [facility] RDW SD 53.8(H) 35.7 - 48.1 fL [facility] NRBC abs 0.33(H) 0.00 - 0.01 K/cumm [facility] Blood 09/07/2021 10:0 6 PM CDT 09/07/2021 10:14 PM CDT us Jerry Carpenter MD LAB BLOOD ORDERABLES Final Resul t Performing Organization Address City/[facility] de Phone Number [facility] [place] [address] * (ABNORMAL) Fibrinogen (09/07/2021 10:06 PM CDT) Fibrinogen 499(H) 170 - 400 mg/dL [facility] Blood 09/07/2021 10:0 6 PM CDT 09/07/2021 10:14 PM CDT us Jerry Carpenter MD LAB BLOOD ORDERABLES Final Resul t Performing Organization Address City/[facility] de Phone Number [facility] [place] [place] [address] * aPTT (09/07/2021 10:06 PM CDT) aPTT 29 27 - 37 sec [facility] Comment: Interpretive Data Therapeutic heparin range: 60.0 - 94.0 seconds. Based on correlation with therapeutic heparin activity range of 0.3-0.7 Units/mL. Current interpretive data was last revised on 2021. Blood 09/07/2021 10:0 6 PM CDT 09/07/2021 10:14 PM CDT us Jerry Carpenter MD LAB BLOOD ORDERABLES Final Resul t Performing Organization Address City/[facility] Co de Phone Number [facility] [place] [address] * Protime-INR (09/07/2021 10:06 PM CDT) PT 13.1 9.5 - 13.6 sec [facility] INR 1.2 0.9 - 1.2 [facility] Comment: Interpretive data Oral anticoagulant therapeutic ranges: [...] ORDERABLES Final Resul t Performing Organization Address [facility] [place] [address] * Uric acid (09/07/2021 10:06 PM CDT) Pathologist [facility] [place] Uric acid 5.3 3.0 - 8.0 mg/dL [facility] Blood 09/07/2021 10:0 6 PM CDT 09/07/2021 10:14 PM CDT us Jerry Carpenter MD LAB BLOOD ORDERABLES Final Resul t Performing Organization Address [facility] Co de Phone Number [facility] [place] [address] * (ABNORMAL) Lactate dehydrogenase (LD) (09/07/2021 10:06 PM CDT) Lactate dehydrogenase (LDH) 294(H) 100 - 250 Units/L [facility] Blood 09/07/2021 10:0 6 PM CDT 09/07/2021 10:14 PM CDT us Jerry Carpenter MD LAB BLOOD ORDERABLES Final Resul t Performing Organization Address City/[facility] Co de Phone Number [facility] Department [place] [address] * (ABNORMAL) Phosphorus (09/07/2021 10:06 PM CDT) Pathologist [facility] [place] Phosphorus, pl 1.3(L) 2.3 - 4.5 mg/dL [facility] Blood 09/07/2021 10:0 6 PM CDT 09/07/2021 10:14 PM CDT us Jerry Carpenter MD LAB BLOOD ORDERABLES Final Resul t Performing Organization Address [facility] Co de Phone Number [facility] [place] [place] [address] * Magnesium (09/07/2021 10:06 PM CDT) Pathologist [facility] [place] Magnesium 1.7 1.4 - 2.5 mg/dL [facility] Blood 09/07/2021 10:0 6 PM CDT 09/07/2021 10:14 PM CDT us Jerry Carpenter MD LAB BLOOD ORDERABLES Final Resul t Performing Organization Address City/[facility] Co de Phone Number [facility] [place] [employer] [place] [address] * (ABNORMAL) Comprehensive metabolic panel (09/07/2021 10:06 PM CDT) Sodium 144 135 - 145 mmol/L [facility] Potassium, pl 4.2 3.3 - 4.9 mmol/L [facility] Chloride 100 97 - 110 mmol/L [facility] CO2 33(H) 22 - 32 mmol/L [facility] Anion gap 11 2 - 15 mmol/L [facility] BUN 28(H) 8 - 25 mg/dL [facility] Creatinine 0.98 0.80 - 1.30 mg/dL [facility] Glucose 244(H) 70 - 199 mg/dL [facility] Comment: Interpretive Data Fasting glucose >/= 126 [...] 2017. Calcium 9.2 8.5 - 10.3 mg/dL [facility] Bilirubin, total 3.3(H) 0.1 - 1.2 mg/dL [facility] Protein, pl 6.7 6.5 - 8.5 g/dL [facility] Albumin 3.5 3.5 - 5.0 g/dL [facility] Alk phos 214(H) 40 - 130 Units/L [facility] ALT 2,063(H) 7 - 55 Units/L [facility] AST 263(H) 10 - 50 Units/L [facility] Blood 09/07/2021 10:0 6 PM CDT 09/07/2021 10:14 PM CDT us Jerry Carpenter MD LAB BLOOD ORDERABLES Final Resul t [facility] [place] [address] * ECG 12 lead (09/07/2021 10:03 PM CDT) Ventricular Rate EKG/Min 72 BPM [facility] Atrial Rate 72 BPM [facility] NM-Interval (MSEC) 136 ms [facility] QRS-Interval (MSEC) 86 ms [facility] QT-Interval (MSEC) 372 ms [facility] QTc 407 ms [facility] R [place] 82 degrees [facility] T [place] 73 degrees [facility] Diagnosis Normal sinus rhythm Nonspecific T wave abnormality Abnormal ECG When compared with ECG of 17-AUG-2021 13:08, Nonspecific T wave abnormality now evident in Inferior leads Nonspecific T wave abnormality, worse in Lateral leads Confirmed by NGOZI MILES M.D ([id number]) on 09/08/2021 1:32:25 PM [facility] 09/07/2021 10:0 3 PM CDT 09/08/2021 1:32 PM CDT Jerry Carpenter MD ECG ORDERABLES Final Result Performing Organization Address City/[facility]/ZIP Co de Phone Number [facility] * (ABNORMAL) POCT glucose (09/07/2021 9:24 PM CDT) [facility] Glucose, POC 228(H) 70 - 199 mg/dL [facility] Blood 09/07/2021 9:24 PM CDT 09/07/2021 9:24 PM CDT Anaid Kruse MD LAB POCT ORDERABLES - DEVICE Final Result Performing Organization Address City/[facility] Co de Phone Number [facility] [place] [address] * X-ray chest 1 view (Portable) (09/07/2021 [...] (ABNORMAL) POCT glucose (09/07/2021 6:55 PM CDT) [facility] Glucose, POC 210(H) 70 - 199 mg/dL [facility] Blood 09/07/2021 6:55 PM CDT 09/07/2021 6:55 PM CDT Tay Charlton MD LAB POCT ORDERABLES - JULIO CE Final Result Performing Organization Address [facility]/State/ZIP Co de Phone Number [facility] [place] [address] * Prepare RBC: 1 Units (09/07/2021 5:36 PM CDT) [facility] Product code [id number] [facility] Unit Number [id number] [facility] Product Blood Type APOS [facility] Dispense Status RETURNED [facility] Blood 09/07/2021 5:36 PM CDT 09/07/2021 5:39 PM CDT Narrative [facility] - 09/08/2021 9:07 AM CDT Other indication->3g hgb drop today, no source Are special requirements needed? (all products are leukoreduced)->No Date required:-[id number] LRRBC # of [id number] Reasons:-Other (specify)} Michael Parham MD BLOOD BANK PRODUCT ORDERA BLES Final Result Performing Organization Address City/[facility] de Phone Number [facility] [place] [address] * POC Blood Gas and Chemistries, Arterial - (09/07/2021 5:19 PM CDT) [facility] Lactate, POC 2.0 0.7 - 2.2 mmol/L [facility] Blood 09/07/2021 5:19 PM CDT 09/07/2021 5:19 PM CDT Tay Charlton MD LAB POCT ORDERABLES - JULIO CE Final Result Performing Organization Address [facility] de Phone Number [facility] [place] [address] * (ABNORMAL) POCT glucose (09/07/2021 4:51 PM CDT) [facility] Glucose, POC 212(H) 70 - 199 mg/dL [facility] Glucose comment 1 Doctor Notified [facility] Blood 09/07/2021 4:51 PM CDT 09/07/2021 4:51 PM CDT us Tay Charlton MD LAB POCT ORDERABLES - JULIO CE Final Result Performing Organization Address [facility] de Phone Number [facility] [place] [address] * eGFR (09/07/2021 4:49 PM CDT) [facility] eGFR >90 90 - 130 mL/min/1.7 3 m2 [facility] Comment: Interpretive Data Reference Interval Normal ?>/= [...] MD LAB BLOOD ORDERABLES Pilar armas Result [facility] [place] [address] * (ABNORMAL) Differential, auto (09/07/2021 4:49 PM CDT) Pathologist [facility] [place] Neutrophil abs 14.5(H) 1.7 - 6.5 K/cumm [facility] Imm gran abs 0.2(H) 0.0 - 0.1 K/cumm [facility] [facility] Lymphocyte abs 1.6 0.8 - 3.3 K/cumm [facility] Monocyte abs 0.6 0.2 - 0.8 K/cumm [facility] Eosinophil abs 0.0 0.0 - 0.5 K/cumm [facility] Basophil abs 0.1 0.0 - 0.1 K/cumm [facility] Neutrophil pct 85.1 % [facility] Comment: Interpretive Data Percent cell count reference ranges are not reported, since discordance with absolute values may lead to misinterpretation of CBC data. Current Interpretive Data was last revised on 2018. Imm gran pct 1.4 % [facility] Comment: Interpretive Data Percent cell count reference ranges are not reported, since discordance with absolute values may lead to misinterpretation of CBC data. Current Interpretive Data was last revised on 2018. Lymphocyte pct 9.5 % [facility] Comment: Interpretive Data Percent cell count reference ranges are not reported, since discordance with absolute values may lead to misinterpretation of CBC data. Current Interpretive Data was last revised on 2018. Monocyte pct 3.5 % [facility] Comment: Interpretive Data Percent cell count reference ranges are not reported, since discordance with absolute values may lead to misinterpretation of CBC data. Current Interpretive Data was last revised on 2018. Eosinophil pct 0.1 % [facility] Comment: Interpretive Data Percent cell count reference ranges are not reported, since discordance with absolute values may lead to misinterpretation of CBC data. Current Interpretive Data was last revised on 2018. Basophil pct 0.4 % [facility] Comment: Interpretive Data Percent cell count reference ranges are not reported, since discordance with absolute values may lead to misinterpretation of CBC data. Current Interpretive Data was last revised on 2018. Blood 09/07/2021 4:49 PM CDT 09/07/2021 5:08 PM CDT us Michael Parham MD LAB BLOOD ORDERABLES Pilar l Result [facility] [place] [address] * (ABNORMAL) Comprehensive metabolic panel (09/07/2021 4:49 PM CDT) Sodium 142 135 - 145 mmol/L [facility] Potassium, pl 3.9 3.3 - 4.9 mmol/L [facility] Chloride 103 97 - 110 mmol/L [facility] CO2 30 22 - 32 mmol/L [facility] Anion gap 9 2 - 15 mmol/L [facility] BUN 29(H) 8 - 25 mg/dL [facility] Creatinine 0.86 0.80 - 1.30 mg/dL [facility] Glucose 242(H) 70 - 199 mg/dL [facility] Comment: Interpretive Data Fasting glucose >/= 126 [...] 2017. Calcium 9.1 8.5 - 10.3 mg/dL [facility] Bilirubin, total 3.1(H) 0.1 - 1.2 mg/dL [facility] Protein, pl 6.4(L) 6.5 - 8.5 g/dL [facility] Albumin 3.3(L) 3.5 - 5.0 g/dL [facility] Alk phos 190(H) 40 - 130 Units/L [facility] ALT 2,123(H) 7 - 55 Units/L [facility] AST 352(H) 10 - 50 Units/L [facility] Blood 09/07/2021 4:49 PM CDT 09/07/2021 5:09 PM CDT us Michael Parham MD LAB BLOOD ORDERABLES Pilar armas Result [facility] [place] [address] * (ABNORMAL) CBC with auto differential (09/07/2021 4:49 PM CDT) [facility] WBC 17.0(H) 3.8 - 9.9 K/cumm [facility] Hgb 13.5 13.0 - 17.5 g/dL [facility] Hct 38.8(L) 38.9 - 50.3 % [facility] Plt 173 150 - 400 K/cumm [facility] MPV 10.8 9.1 - 12.3 fL [facility] RBC 3.99(L) 4.30 - 5.80 M/cumm [facility] MCV 97.2(H) 81.3 - 96.4 fL [facility] MCH 33.8(H) 27.1 - 33.3 pg [facility] MCHC 34.8 32.3 - 35.7 g/dL [facility] RDW CV 14.8 11.1 - 14.9 % [facility] RDW SD 52.9(H) 35.7 - 48.1 fL [facility] NRBC abs 0.24(H) 0.00 - 0.01 K/cumm [facility] Blood 09/07/2021 4:49 PM CDT 09/07/2021 5:08 PM CDT Michael Parham MD LAB BLOOD ORDERABLES Pilar l Result [facility] [place] [address] * FL ERCP Biliary Duct (09/07/2021 2:34 PM CDT) Narrative [facility] - 09/07/2021 2:34 PM CDT The images from this study are not interpreted by Radiology. ??Please refer to the physician's procedure / OR operative note. Tay Charlton MD IMG FLUOROSCOPY PROCEDURES Final Result Performing Organization Address [facility]/ZIP Co de Phone Number [email or web address] * (ABNORMAL) POCT glucose (09/07/2021 1:34 PM CDT) Glucose, POC 216(H) 70 - 199 mg/dL [facility] Blood 09/07/2021 1:34 PM CDT 09/07/2021 1:34 PM CDT Tay Charlton MD LAB POCT ORDERABLES - JULIO CE Final Result [facility] Department [place] [address] * ERCP (09/07/2021 1:04 PM CDT) Anatomical Region Laterality Modality Other Narrative Procedure Note Tay Charlton MD - 09/07/2021 1:04 PM CDT [facility] Patient Name: Brady Jones Procedure Date: 09/07/2021 1:04 PM Date of : 1965 Admit Type: Outpatient Age: 55 Gender: Male Attending MD: Tay Charlton M.D. Room: [facility]COPY RO[facility] 2 Note Status: Finalized Procedure: [...] were discussed and informed consentwas obtained. The [id number] Duodenoscope wasintroduced through the mouth, and used to inject contrast into and used to inject contrast into the bile duct and ventral pancreatic duct. The GIF [id number] endoscope was introduced through the and used to inject contrast into. The ERCP was accomplished without difficulty. The patient tolerated the procedure well. Findings: The recovery room nurse film was normal. The esophagus was successfully [...] through the upper GI tract. Hematin (altered blood/ijsrxx-lqksji-ueew material) was found in the entire examined [...] esophagitis with no bleeding. - Hematin (altered blood/wmonoe-ircyln-bmyfeenwktyz) in the entire stomach. - Non-bleeding duodenal [...] On: 09/07/2021 1:04 PM Recognized by the [place] [employer] for promoting quality [...] organism identification may be performed using the uTaPigene Gram-Positive Blood Culture Assay. This assay detects microbial DNA in positive blood culture broth via hybridization of target DNA to capture oligonucleotides on a microarray. This assay has been cleared by the [place] Food and Drug Administration and its performance characteristics have been verified by the [facility]. 5. ?For questions about this culture, contact the Microbiology Laboratory at [phone]. Interpretive data was last revised on 2020. us Parmjit Pelayo MD LAB MICROBIOLOGY - GENER AL ORDERABLES Final Result [facility] [place] [address] * Blood culture Blood (09/07/2021 10:19 AM CDT) Report Final Report: No growth [facility] Blood 09/07/2021 10:1 9 AM CDT 09/07/2021 10:46 AM CDT Narrative [facility] - 09/11/2021 12:01 PM CDT 1. [...] organism identification may be performed using the uTaPigene Gram-Positive Blood Culture Assay. This assay detects microbial DNA in positive blood culture broth via hybridization of target DNA to capture oligonucleotides on a microarray. This assay has been cleared by the [place] Food and Drug Administration and its performance characteristics have been verified by the [facility]. 5. ?For questions about this culture, contact the Microbiology Laboratory at [phone]. Interpretive data was last revised on 2020. Parmjit Pelayo MD LAB MICROBIOLOGY - [facility] ORDERABLES Final Result [facility] [place] [address] * (ABNORMAL) POCT glucose (09/07/2021 9:29 AM CDT) Glucose, POC 216(H) 70 - 199 mg/dL [facility] Blood 09/07/2021 9:29 AM CDT 09/07/2021 9:29 AM CDT Anaid Kruse MD LAB POCT ORDERABLES - DEVICE Final Result [facility] [place] [address] * US RUQ (09/07/2021 8:38 AM CDT) [...] cell transplant currently in remission. 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 ??Currently [...] the pancreas are normal. Dr. Neena Higginbotham (president) personally participated in sonographic imaging of this patient. Procedure Note Kirt aCli MD - 09/07/2021 EXAMINATION: LIMITED ABDOMINAL SONOGRAM HISTORY: 55-year-old male with history of AML status post stem cell transplant currently in remission. Complicated by zzugt-niuwvx-xkjw disease of the eye and lung. Currently [...] the pancreas are normal. Dr. Neena Higginbotham (president) personally participated in sonographic imaging of this [...] (ABNORMAL) POCT glucose (09/07/2021 5:56 AM CDT) Glucose, POC 287(H) 70 - 199 mg/dL [facility] Blood 09/07/2021 5:56 AM CDT 09/07/2021 5:56 AM CDT Anaid Kruse MD LAB POCT ORDERABLES - DEVICE Final Result [facility] [place] [address] * COVID-19 Coronavirus RNA Nasopharyngeal (09/07/2021 5:51 AM CDT) COVID-19 RNA Negative Negative [facility] Comment: Interpretive data: Synonyms for this test include: PCR and NAAT . ??This test is performed using the [employer] Xpert Xpress assay. This is a real-time [...] December 22, 2020. First COVID-19 test? No [facility] Employeed in healthcare? No [facility] status? No [facility] Group care resident? No [facility] Hospitalized? No [facility] Is patient in ICU? No [facility] Symptomatic as defined by CDC? No [facility] Nasopharyngeal 09/07/2021 5: 51 AM CDT 09/07/2021 6:23 AM CDT Narrative [facility] - 09/07/2021 7:13 AM CDT What is the reason for testing?->Bed placement or semi-private room us Cruz Shah MD LAB MICROBIOLOGY - GENERA L ORDERABLES Final Result [facility] [place] [address] * CT Chest PE (CTA) Abdomen Pelvis [...] by: Ranjan Au M.D. Anaid Kruse MD IM CT PROCEDURES Fin al Result * POCT creatinine (09/07/2021 4:31 AM CDT) Creatinine POC 1.1 0.7 - 1.3 mg/dL [facility] Blood 09/07/2021 4:31 AM CDT 09/07/2021 4:31 AM CDT Notinfile Unknown LAB POCT ORDERABLES - DEVICE F inal Result Performing Organization Address [facility] Co de Phone Number [facility] [place] [address] * Erythrocyte sedimentation rate (09/07/2021 4:28 AM CDT) Erythrocyte sedimentation rate 10 1 - 20 mm/hr [facility] Blood 09/07/2021 4:28 AM CDT 09/07/2021 4:47 AM CDT Anaid Kruse MD LAB BLOOD ORDERABLES Final Result Performing Organization Address [facility] de Phone Number [facility] [place] [address] * (ABNORMAL) CRP (acute phase) (09/07/2021 4:28 AM CDT) CRP 147.2(H) <=10.0 mg/L [facility] Blood 09/07/2021 4:28 AM CDT 09/07/2021 4:43 AM CDT Result [facility] Anaid Kruse MD LAB BLOOD ORDERABLES Final Result Performing Organization Address [facility] Co de Phone Number [facility] Department [place] [address] * (ABNORMAL) Bilirubin, direct (09/07/2021 4:28 AM CDT) Bilirubin, direct 1.6(H) 0.1 - 0.3 mg/dL [facility] Blood 09/07/2021 4:28 AM CDT 09/07/2021 4:44 AM CDT Anaid Kruse MD LAB BLOOD ORDERABLES Final Result Performing Organization Address [facility] [place] [address] * Acetaminophen level (09/07/2021 4:28 AM CDT) Acetaminophen 6.0 mcg/mL [facility] Comment: Interpretive Data Significant hepatic injury may [...] BLOOD ORDERABLES Final Result Performing Organization Address [facility] [place] [address] * Tacrolimus level random (09/07/2021 4:28 AM CDT) Tacrolimus random <1.0 ng/mL [facility] Comment: Undetectable. ??Please verify that the correct immunosuppressant test was requested. Interpretive Data Testing performed by liquid chromatography-tandem mass spectrometry. ??Therapeutic concentrations vary depending on type of transplanted organ and time elapsed since transplant. ??Typical trough concentrations range from 5-15 ng/mL. ??This test was developed and its performance characteristics determined by the [facility] consistent with CLIA requirements. ??This test has not been cleared or approved by the [place] Food and Drug administration. ??Current interpretive data last reviewed 2020. Blood 09/07/2021 4:28 AM CDT 09/07/2021 4:47 AM CDT us Anaid Kruse MD LAB BLOOD ORDERABLES Final Result Performing Organization Address [facility] Co de Phone Number [facility] Department [place] [address] * (ABNORMAL) Creatine kinase (CK), total (09/07/2021 4:28 AM CDT) CK 39(L) 40 - 300 Units/L [facility] Blood 09/07/2021 4:28 AM CDT 09/07/2021 4:43 AM CDT Anaid rKuse MD LAB BLOOD ORDERABLES Final Result Performing Organization Address [facility] de Phone Number [facility] Department [place] [address] * (ABNORMAL) Triglycerides (09/07/2021 4:28 AM CDT) Triglycerides 233(H) <=149 mg/dL [facility] Comment: Interpretive Data Ages < or = [...] BLOOD ORDERABLES Final Result Performing Organization Address [facility] Co de Phone Number [facility] [place] [address] * Critical Result Callback Chemistry (09/07/2021 4:28 AM CDT) Date Notified [id number] [facility] Time Notified 519 [facility] TestName Lipase [facility] Called/Read Back Cruz DENT Credentials MD [facility] Called By celestina DENT Blood 09/07/2021 4:28 AM CDT 09/07/2021 4:43 AM CDT Anaid Kruse MD LAB BLOOD ORDERABLES Final Result Performing Organization Address [facility] [place] [address] * eGFR (09/07/2021 4:28 AM CDT) eGFR 90 90 - 130 mL/min/1.7 3 m2 [facility] Comment: Interpretive Data Reference Interval Normal [...] Kruse MD LAB BLOOD ORDERABLES Final Result [facility] [place] [address] * (ABNORMAL) Differential, auto (09/07/2021 4:28 AM CDT) Neutrophil abs 9.5(H) 1.7 - 6.5 K/cumm [facility] Imm gran abs 0.1 0.0 - 0.1 K/cumm [facility] Lymphocyte abs 1.1 0.8 - 3.3 K/cumm [facility] Monocyte abs 0.3 0.2 - 0.8 K/cumm [facility] Eosinophil abs 0.0 0.0 - 0.5 K/cumm [facility] Basophil abs 0.0 0.0 - 0.1 K/cumm [facility] Neutrophil pct 86.8 % [facility] Comment: Interpretive Data Percent cell count reference ranges are not reported, since discordance with absolute values may lead to misinterpretation of CBC data. Current Interpretive Data was last revised on 2018. Imm gran pct 0.8 % [facility] Comment: Interpretive Data Percent cell count reference ranges are not reported, since discordance with absolute values may lead to misinterpretation of CBC data. Current Interpretive Data was last revised on 2018. Lymphocyte pct 9.7 % [facility] Comment: Interpretive Data Percent cell count reference ranges are not reported, since discordance with absolute values may lead to misinterpretation of CBC data. Current Interpretive Data was last revised on 2018. Monocyte pct 2.4 % [facility] Comment: Interpretive Data Percent cell count reference ranges are not reported, since discordance with absolute values may lead to misinterpretation of CBC data. Current Interpretive Data was last revised on 2018. Eosinophil pct 0.1 % [facility] Comment: Interpretive Data Percent cell count reference ranges are not reported, since discordance with absolute values may lead to misinterpretation of CBC data. Current Interpretive Data was last revised on 2018. Basophil pct 0.2 % [facility] Comment: Interpretive Data Percent cell count reference ranges are not reported, since discordance with absolute values may lead to misinterpretation of CBC data. Current Interpretive Data was last revised on 2018. Blood 09/07/2021 4:28 AM CDT 09/07/2021 4:43 AM CDT Anaid Kruse MD LAB BLOOD ORDERABLES Final Result [facility] Department [place] [address] * (ABNORMAL) Lipase (09/07/2021 4:28 AM CDT) Lipase 650(C) 10 - 99 Units/L [facility] Blood 09/07/2021 4:28 AM CDT 09/07/2021 4:43 AM CDT Anaid Kruse MD LAB BLOOD ORDERABLES Final Result [facility] [place] [place] [address] * Hepatitis panel, acute (09/07/2021 4:28 AM CDT) Hep A IgM Nonreactive Nonreactive [facility] Comment: Interpretive Data: If Hep A IgM Ab is reported as Equivocal, a new sample should be drawn in two weeks for testing. Current interpretive data was last revised on 20. Hep B core IgM Nonreactive Nonreactive [facility] Comment: Interpretive Data If HepB Core IgM Ab is reported as Equivocal, a new sample should be drawn in two weeks for testing. Current interpretive data was last revised on 20. Hep C Ab Nonreactive Nonreactive [facility] Comment:Antibodies to HCV no t detected. Does NOT exclude the possibility of recent exposure to HCV. HepBsAg Nonreactive Nonreactive [facility] Blood 09/07/2021 4:28 AM CDT 09/07/2021 4:44 AM CDT us Anaid Kruse MD LAB MICROBIOL OGY - GENERAL ORDERABLES Edited Result - Final Performing Organization Address City/[facility]/ZIP Co de Phone Number [facility] [place] [address] * Ammonia (09/07/2021 4:28 AM CDT) Ammonia 21 5 - 50 mcmol/L [facility] Blood 09/07/2021 4:28 AM CDT 09/07/2021 4:38 AM CDT us Anaid Kruse MD LAB BLOOD ORDERABLES Final Result [facility] [place] [address] * Type and screen (09/07/2021 4:28 AM CDT) ABO Rh A Positive [facility] Ursula, indirect Negative [facility] Blood 09/07/2021 4:28 AM CDT 09/07/2021 4:36 AM CDT Narrative [facility] - 09/07/2021 5:38 AM CDT Has the patient had Daratumumab or Isatuximab in the past 6 months?->Unknown us Anaid Kruse MD LAB BLOOD BANK TEST O RDERABLES Final Result Performing Organization Address [facility] de Phone Number [facility] [place] [address] * (ABNORMAL) Protime-INR (09/07/2021 4:28 AM CDT) PT 14.9(H) 9.5 - 13.6 sec [facility] INR 1.3(H) 0.9 - 1.2 [facility] Comment: Interpretive data Oral anticoagulant therapeutic ranges: Venous thromboembolism prophylaxis or treatment: 2.0-3.0 CARDIOLOGY Standard range: 2.0-3.0 High-intensity range: 2.5-3.5 Refer to indication-specific guidelines for appropriate target ranges for prosthetic heart valve replacement. Current interpretive data was last revised on 2019. Blood 09/07/2021 4:28 AM CDT 09/07/2021 4:54 AM CDT us Anaid Kruse MD LAB BLOOD ORDERABLES Final Result Performing Organization Address [facility] [place] [address] * aPTT (09/07/2021 4:28 AM CDT) aPTT 28 27 - 37 sec [facility] Comment: Interpretive Data Therapeutic heparin range: 60.0 - 94.0 seconds. Based on correlation with therapeutic heparin activity range of 0.3-0.7 Units/mL. Current interpretive data was last revised on 2021. Blood 09/07/2021 4:28 AM CDT 09/07/2021 4:54 AM CDT us Anaid Kruse MD LAB BLOOD ORDERABLES Final Result [facility] [place] [address] * (ABNORMAL) Comprehensive metabolic panel (09/07/2021 4:28 AM CDT) Sodium 140 135 - 145 mmol/L [facility] Potassium, pl 5.0(H) 3.3 - 4.9 mmol/L [facility] Comment:Hemolyzed; Potassium value may be falsely elevated by as much as 0.3-0.5 mmol/L. Suggest redraw and reanalysis. Chloride 94(L) 97 - 110 mmol/L [facility] CO2 25 22 - 32 mmol/L [facility] Anion gap 21(H) 2 - 15 mmol/L [facility] BUN 34(H) 8 - 25 mg/dL [facility] Creatinine 0.95 0.80 - 1.30 mg/dL [facility] Glucose 319(H) 70 - 199 mg/dL [facility] Comment: Interpretive Data Fasting glucose >/= 126 [...] 2017. Calcium 10.0 8.5 - 10.3 mg/dL [facility] Bilirubin, total 3.2(H) 0.1 - 1.2 mg/dL [facility] Protein, pl 7.9 6.5 - 8.5 g/dL [facility] Albumin 4.0 3.5 - 5.0 g/dL [facility] Alk phos 234(H) 40 - 130 Units/L [facility] ALT 3,535(H) 7 - 55 Units/L [facility] AST 1,047(H) 10 - 50 Units/L [facility] Comment:Hemolyzed; result ma y be falsely elevated Blood 09/07/2021 4:2 8 AM CDT 09/07/2021 4:44 AM CDT Anaid Kruse MD LAB BLOOD ORDERABLES Final Result Performing Organization Address [facility] Co de Phone Number [facility] [place] [place] [address] * (ABNORMAL) CBC with auto differential (09/07/2021 4:28 AM CDT) [facility] WBC 11.0(H) 3.8 - 9.9 K/cumm [facility] Hgb 16.5 13.0 - 17.5 g/dL [facility] Hct 46.9 38.9 - 50.3 % [facility] Plt 202 150 - 400 K/cumm [facility] MPV 11.4 9.1 - 12.3 fL [facility] RBC 4.82 4.30 - 5.80 M/cumm [facility] MCV 97.3(H) 81.3 - 96.4 fL [facility] MCH 34.2(H) 27.1 - 33.3 pg [facility] MCHC 35.2 32.3 - 35.7 g/dL [facility] RDW CV 14.6 11.1 - 14.9 % [facility] RDW SD 51.8(H) 35.7 - 48.1 fL [facility] NRBC abs 0.11(H) 0.00 - 0.01 K/cumm [facility] Blood 09/07/2021 4:28 AM CDT 09/07/2021 4:43 AM CDT Anaid Kruse MD LAB BLOOD ORDERABLES Final Result Performing Organization Address City/[facility]/ZIP Co de Phone Number [facility] [place] [address] * (ABNORMAL) POCT glucose (09/07/2021 4:26 AM CDT) Glucose, POC 273(H) 70 - 199 mg/dL [facility] Blood 09/07/2021 4:26 AM CDT 09/07/2021 4:26 AM CDT us Notinfile Unknown LAB POCT ORDERABLES - DEVICE F inal Result [facility] Department [place] [address] * ECG 12-LEAD (09/07/2021 3:28 AM CDT) Narrative [facility] - 09/07/2021 3:28 AM CDT Azucena Leal [...] the ED Azucena Leal MD 09/07/21 0329 us Anaid Kruse MD ECG ORDERABLES Final Result Performing Organization Address City/[facility] Co de Phone Number [facility] * (ABNORMAL) POCT glucose (09/07/2021 3:15 AM CDT) [facility] Glucose, POC 266(H) 70 - 199 mg/dL [facility] Blood 09/07/2021 3:15 AM CDT 09/07/2021 3:15 AM CDT Notinfile Unknown LAB POCT ORDERABLES - DEVICE F inal Result Performing Organization Address [facility] Co de Phone Number [facility] [place] [address] documented in this encounter Visit Diagnoses Diagnosis Acute hepatitis Acute and subacute necrosis of liver Jaundice Jaundice, unspecified, not of Abdominal pain Abdominal pain, unspecified site Hematemesis, presence of nausea not specified Abdominal pain Abdominal pain, unspecified site Hematemesis Abdominal pain Abdominal pain, unspecified site Hematemesis, presence of nausea not specified documented in this encounter Admitting Diagnoses Diagnosis Abdominal pain Abdominal pain, unspecified site Hematemesis documented in this encounter Administered Medications Inactive Administered Medications - up to 3 most recent administrations Medication Order MAR Action Action Date Dose Rate Site acyclovir (ZOVIRAX) tablet 400 mg 400 mg, oral, 3 times daily, First dose on Angy 09/07/21 at 2100, Indications: Prophylaxis, MedicalIndications:Prophylaxis, Medical Given 09/10/2021 4:11 PM CDT 400 mg Given 09/10/2021 9:09 AM CDT 400 mg Given 09/09/2021 8:42 PM CDT 400 mg albuterol HFA (PROVENTIL HFA,VENTOLIN HFA,PROAIR HFA) 90 mcg/actuation inhaler 1 puff 1 puff, inhalation, Every 4 hours PRN, wheezing, Starting on Sat09/08/21 at 1045, RN TO ADMINISTER calcium carbonate (TUMS) chewable tablet 500 mg 500 mg (200 mg of elemental calcium), oral, 2 times daily, First dose on 09/10/21 at 0945 Given 09/10/2021 10:44 AM CDT [...] UNABLE to swallow/take PO glucose/juice., Starting on Sat09/07/21 at 2047, After treatment for hypoglycemia, recheck [...] Call MD for each episode of hypoglycemia. SURVEY WORKERS SUPERVISOR STATES GLUTOSE-15 CONTAINS GLUCOSE 40% W/W (50% W/V), Indications: hypoglycemic disorderIndications:hypoglycemic disorder keorebzzfne-ioxyxhkdi-lxlfxadx (TRELEGY ELLIPTA) 100-62.5-25 mcg inhaler 1 puff 1 puff, inhalation, Daily, First dose (after last modification) on [facility] 09/09/21 at 0900, Rinse mouth with water after [...] Given 09/08/2021 8:25 PM CDT 50 Units indomethacin (INDOCIN) 50 mg suppository As needed, Starting on Angy 09/07/21 at 1421, Intra-Op Given 09/07/2021 2:21 PM CDT 100 mg insulin glargine (LANTUS, [...] CDT 5 Units L eft Upper Abdomen iothalamate meglumine (CONRAY) 60 % injection As needed, Starting on Sat09/07/21 at 1413, Intra-Op Given 09/07/2021 2:13 PM CDT 10 mL GI Tract montelukast (SINGULAIR) tablet 10 mg 10 mg, oral, Daily before breakfast, First dose on Sat09/08/21 at 0730 Given 09/10/2021 6:39 AM CDT 10 mg Given 09/09/2021 8:22 AM CDT 10 mg Given 09/08/2021 6:45 AM CDT 10 mg mycophenolate mofetil (CELLCEPT) [...] daily, First dose on Sat09/07/21 at 2100 Given 09/10/2021 12:11 PM CDT 1 drop Given 09/10/2021 9:10 AM CDT 1 drop Given 09/09/2021 8:43 PM CDT 1 drop oxyCODONE-acetaminophen (PERCOCET) 5-325 mg per tablet 1 tablet 1 tablet, oral, Every 4 hours PRN, 1st line for pain, Starting on Angy 09/07/21 at 2045, Indications: PainIndications:Pain Given 09/09/2021 1:34 AM CDT 1 tablet Given 09/08/2021 9:42 AM CDT 1 tablet [...] Given 09/09/2021 8:21 AM CDT 40 mg potassium, sodium phosphates (PHOS-NAK) 280-160-250 mg [...] PM CDT 20 mg sodium chloride 0.9% infusion 30 mL/hr, intravenous, Continuous PRN, KVO for medication administrations, Starting on Angy 09/07/21 at 2020 New Bag 09/09/2021 5:41 AM CDT 30 mL/hr 30 mL/hr sucralfate (CARAFATE) tablet 1 g 1 [...] Ramonita Chilel RN)1607 (Given - Provider: Ramonita Chille RN)2023 (Given - Provider: Sri Le RN) [...] 1044 (Given - Provider: Snow Alfonso RN) cvyqdflkpar-uarklqfjt-iekg nter (TRELEGY ELLIPTA) 100-62.5-25 mcg inhaler 1 puff (CANCELED) 1 puff, inhalation, Daily (correspondence dictator), First dose on Sat09/08/21 at 0800, Rinse mouth with water after use. Do not swallow., Indications: Bronchospasm Prevention with COPD 0901 (Given - Provider: Ramonita Chilel RN) wafflwjweik-utvubecrk-afhm nter (TRELEGY ELLIPTA) 100-62.5-25 mcg inhaler 1 [...] Alfonso RN)1633 (Given - Provider: Snow Alfonso RN)2041 (Given [...] other insulins 2136 (Given - Provider: Sri Le RN) insulin glargine (LANTUS, SEMGLEE) 100 unit/mL injection 15 Units 15 Units, subcutaneous, Nightly, First dose (after last modification) on 09/09/21 at 2100, Do not mix with other insulins 2144 (Given - Provider: Sri Le RN) [...] 0-5 Units, subcutaneous, Nightly, First dose on Sat09/07/21 at 2130, Blood glucose mg/dL: 149 or [...] Snow Alfonso RN)1907 (Given - Provider: Snow Alfonso RN) 0909 (Given - Provider: Snow Alfonso RN)1206 (Not Given - Provider: Snow Alfonso RN - Reason: Other - Comment: BS 80-pt not eating lunch) meropenem (MERREM) 1,000 mg/110 mL in sodium chloride 0.9% (premix) 1,000 mg (CANCELED) 1,000 mg, intravenous, at 220 mL/hr, Administer over 30 Minutes, Every 8 hours scheduled, First dose on Sat09/07/21 at 1036, Indications: Abdominal/Pelvic Infection, Pneumonia, Hospital Acquired 0555 (New Bag - Provider: Marialuisa Starks RN)1004 (Stopped - Provider: Ramonita Chilel RN)1340 (New Bag - Provider: Ramonita Chilel RN)1557 (Stopped - Provider: Ramonita Chilel RN)2137 (New Bag - Provider: Sri Le RN)2239 (Stopped - Provider: Sri Le RN) 0541 (New Bag - Provider: Sri Le RN)0703 (Stopped - Provider: Sri Le RN) montelukast (SINGULAIR) tablet 10 mg 10 mg, oral, Daily before breakfast, First dose on Sat09/08/21 at 0730 0645 (Given - Provider: Marialuisa Starks RN) 0822 (Given - Provider: Snow Alfonso RN) 0639 (Given - Provider: Sri Le, BECKI) mycophenolate mofetil (CELLCEPT) tablet 1,000 mg 1,000 mg, oral, 2 times daily, First dose on Sat09/07/21 at 2115, Do not crush, chew, cut, dissolve, open or otherwise manipulate tablet/capsule., Indications: immunosuppression maintenance tx for lung transplant, Stem cell transplant 0859 (Given - Provider: Ramonita Chilel RN)202 (Given - Provider: Sri Le RN) 0822 (Given - Provider: Snow Alfonso RN)204 (Given [...] Le RN) 0825 (Given - Provider: Snow Alfonso RN)1200 (Given - Provider: Snow Alfonso RN)1633 (Given - Provider: Snow Alfonso RN)2043 (Given - Provider: Sri Le RN) 0910 (Given - Provider: Snow Alfonso RN)1211 (Given - Provider: Snow Alfonso RN)1700 (Due) pantoprazole (PROTONIX) 4 mg/mL injection 40 mg 40 mg, intravenous, Administer over 2 Minutes, 2 times daily, First dose on Sat09/07/21 at 2130, For IV Push administration for adults- 40 mg vial: add 10 mL of sodium chloride 0.9% to achieve a final concentration of 4 mg/mL, Indications: GI Bleed, Stress Ulcer Prophylaxis 0902 (Given - Provider: Ramonita Chilel RN)202 (Given - Provider: Sri Le RN) 0821 (Given - Provider: Snow Alfonso, BECKI)204 (Given - Provider: Sri Le RN) 0909 [...] RN) 0639 (Given - Provider: Sri Le RN)1211 (Given - Provider: Snow Alfonso, BECKI)1611 (Given - Provider: Snow Alfonso RN) prednisoLONE acetate (PRED FORTE) 1 % ophthalmic suspension 1 drop 1 drop, left eye, 4 times daily, First dose on Angy 09/07/21 at 2100, shake well 0901 (Given - Provider: Ramonita Chilel RN)1341 (Given - Provider: Ramonita Chilel RN)1758 (Given - Provider: Ramonita Chilel RN)202 (Given - Provider: Sri Le RN) 0824 (Given - Provider: Snow Alfonso RN)1200 (Given - Provider: Snow Alfonso RN)1633 (Given - Provider: Snow Alfonso RN)2042 (Given - Provider: Sri Le RN) 0910 (Given - Provider: Snow Alfonso, BECKI)1213 (Given - Provider: Snow Alfonso RN)1700 (Due) [...] Chilel RN) 0908 (Given - Provider: Snow Alfonso, BECKI) voriCONAZOLE (VFEND) tablet 200 mg 200 mg, oral, 2 times daily, First dose on Angy 09/07/21 at 2100, Indications: stem Cell Transplant 0859 (Given - Provider: Ramonita Chilel RN)2023 (Given - Provider: Sri Le RN) 0822 (Given - Provider: Snow Alfonso RN)204 (Given - Provider: Sri Le, BECKI) 0908 (Given - Provider: Snow Alfonso RN) [...] PRN, blood product administration, Starting on Angy 09/07/21 at 2020, Indications: Prophylaxis Transfusion Reaction acetaminophen (TYLENOL) tablet 650 mg 650 mg, oral, Every 6 hours PRN, fever, Starting on Angy 09/07/21 at 2020, Indications: Fever albuterol HFA (PROVENTIL HFA,VENTOLIN HFA,PROAIR HFA) 90 mcg/actuation inhaler 1 puff (CANCELED) 1 puff, inhalation, Every 4 hours PRN (correspondence dictator), wheezing, Starting on Sat09/07/21 at 2020 0924 (Given - Provider: Mala Aiken, MINILAB OPERATOR) albuterol HFA (PROVENTIL HFA,VENTOLIN HFA,PROAIR HFA) 90 mcg/actuation inhaler 1 puff 1 puff, inhalation, Every 4 hours PRN, wheezing, Starting on Sat09/08/21 at 1045, RN TO ADMINISTER aluminum & magnesium qfgjpqtqd-zvqqmdblvga-ovcx enhydramine-lidocaine (MAGIC MOUTHWASH) suspension 1-1-1 15 mL, [...] needed, for suspicion of sepsis, Starting on Sat09/07/21 at 2024, For 1 dose, Administer for [...] Sat09/07/21 at 2021, For 11 days, Indications: Cough 1608 (Given - Provider: Ramonita Chilel RN) 0876 (Given - Provider: Snow Alfonso, RN) 0057 (Given - Provider: Sri Le, RN) dextrose (D10W) 10% bolus 250 mL(Linked Group 1) 250 mL, intravenous, at 1,000 mL/hr, Administer over 15 Minutes, Every 15 min PRN, blood glucose less than 70 mg/dL and UNABLE to swallow/take PO glucose/juice., Starting on Sat09/07/21 at 2047, After treatment for hypoglycemia, recheck [...] Call MD for each episode of hypoglycemia. SURVEY WORKERS SUPERVISOR STATES GLUTOSE-15 CONTAINS GLUCOSE 40% W/W (50% [...] line care, with each use, Starting on Angy 09/07/21 at 2019, Do not use with Groshong catheter. Flush volume based on line type, size, and protocol., Indications: Maintain Patency of Indwelling Vascular Catheter loperamide (IMODIUM) capsule 2 mg 2 mg, oral, Every 1 hour PRN, diarrhea, after each liquid stool (ensure that at least one C. diff assay is negative prior to initiating), Starting on Angy 09/07/21 at 2019, Total loperamide dose should not exceed 16 mg in 24 hours., Indications: diarrhea magnesium sulfate 4 g/100 mL in water (premix) 4 g 4 g, intravenous, Administer over 90 Minutes, Every 4 hours PRN, magnesium replacement, Starting on Angy 09/07/21 at 2024, For magnesium level of 1.2-1.5 mg/dL, Indications: hypomagnesemia magnesium sulfate 6 g in sodium chloride 0.9% 250 mL IVPB 6 g, intravenous, at 131 mL/hr, Administer over 120 Minutes, Every 4 hours PRN, magnesium replacement, Starting on Angy 09/07/21 at 2024, For magnesium level less than 1.2 mg/dL and call/notify provider., Indications: hypomagnesemia oxyCODONE-acetaminophen (PERCOCET) 5-325 mg per tablet 1 tablet 1 tablet, oral, Every 4 hours PRN, 1st line for pain, Starting on Sat09/07/21 at 2044, Indications: Pain 0224 (Given - Provider: Marialuisa Starks RN)0645 (Given - Provider: Marialuisa Starks RN)0942 (Given - Provider: Ramonita Chilel, BECKI) 0134 (Given - Provider: Sri Le RN) polyvinyl alcohol-povidone (REFRESH CLASSIC) 1.4-0.6 % [...] for blood product administration, Starting on Angy 09/07/21 at 2019, Prime blood tubing and administer [...] Call MD for each episode of hypoglycemia. SURVEY WORKERS SUPERVISOR STATES GLUTOSE-15 CONTAINS GLUCOSE 40% W/W (50% [...] Count Last Ordered Date First Ordered Date calcium carbonate (TUMS) moo wable tablet 500 mg 1 09/10/2021 sucralfate (CARAFATE) tablet 1 g 1 09/10/20 insulin glargine (LANTUS, SE MGLEE) 100 unit/mL injection 15 Units 1 09/09/2021 potassium, sodium phosphates (PHOS-NAK) 280-160-250 mg packet 2 packet 1 09/09/2021 rivaroxaban (XARELTO) tablet 20 mg 2 2020 sodium chloride 0.9% bolus 500 mL 1 021 sodium chloride 0.9% infusion 4 09/09/2021 09/07/2021 albuterol HFA (PROVENTIL HFA ,VENTOLIN HFA,PROAIR HFA) 90 mcg/actuation inhaler 1 puff 2 09/08/2021 09/07/2021 zhzgelqkvke-achzncszm-sijbdx er (TRELEGY ELLIPTA) 100-62.5-25 mcg inhaler 1 puff 2 09/08/2021 09/07/2021 nicotine (NICODERM CQ) 21 mg patch 24 hour 1 patch 1 09/08/2021 acetaminophen (TYLENOL) tablet 650 mg 2 acyclovir (ZOVIRAX) tablet 400 mg 1 021 albuterol 2.5 mg/0.5 mL nebu lizer solution 5 mg 1 09/07/2021 aluminum & magnesium epgntimiz-uljbzflsqye-nfnecoypquxmimb-lido aida (MAGIC MOUTHWASH) suspension 1-1-1 1 09/07/2021 bacitracin-polymyxin B (POLY SPORIN) 500-10,000 unit/gram ointment tube 1 application 1 09/07/2021 camphor-menthoL (SARNA) 0.5-0.5 % lotion 1 09/07/2021 cefepime (MAXIPIME) 1,000 mg /10 mL in sterile water (premix) 1,000 mg 1 09/07/2021 dextromethorphan-guaiFENesin (ROBITUSSIN-DM) 2-20 mg/mL syrup 10 mL 1 09/07/2021 dextrose (D10W) 10% bolus 250 mL 1 09/07/20 dextrose (GLUTOSE) 40 % gel 15 g 1 09/07/20 gabapentin (NEURONTIN) capsule 300 mg 1 glucagon injection 1 mg 1 09/07/2021 heparin 10 unit/mL flush 20-50 Units 1 08/19 heparin 10 unit/mL flush 50 Units 1 021 insulin glargine (LANTUS, SE MGLEE) 100 unit/mL injection 10 Units 1 09/07/2021 insulin lispro (HumaLOG, ADM ELOG) 100 unit/mL injection 0-10 Units 1 09/07/2021 insulin lispro (HumaLOG, ADM ELOG) 100 unit/mL injection 0-5 Units 1 09/07/2021 insulin lispro (HumaLOG, ADM ELOG) 100 unit/mL injection 10 Units 1 09/07/2021 insulin lispro (HumaLOG, ADM ELOG) 100 unit/mL injection 5 Units 1 09/07/2021 insulin regular (HumuLIN R, NovoLIN R) 100 unit/mL injection 3 Units 1 09/07/2021 ioversoL (OPTIRAY 350) syrin ge syringe 100 mL 1 09/07/2021 ipratropium (ATROVENT) 0.02 % nebulizer solution 0.5 mg 1 09/07/2021 Lactated Ringer's (LR) bolus 1,000 mL 1 loperamide (IMODIUM) capsule 2 mg 1 021 magnesium sulfate 4 g/100 mL in water (premix) 4 g 1 09/07/2021 magnesium sulfate 6 g in sod ium chloride 0.9% 250 mL IVPB 1 09/07/2021 meropenem (MERREM) 1,000 mg/ 110 mL in sodium chloride 0.9% (premix) 1,000 mg 1 09/07/2021 montelukast (SINGULAIR) tablet 10 mg 1 08/19 morphine injection 2 mg 1 09/07/2021 morphine injection 4 mg 2 09/07/2021 mycophenolate mofetil (CELLC EPT) tablet 1,000 mg 1 09/07/2021 ofloxacin (OCUFLOX) 0.3 % op hthalmic solution 1 drop 1 09/07/2021 ondansetron (ZOFRAN) injection 4 mg 2 09/07 oxyCODONE-acetaminophen (PER COCET) 5-325 mg per tablet 1 tablet 1 09/07/2021 pantoprazole (PROTONIX) 4 mg /mL injection 40 mg 1 09/07/2021 pantoprazole (PROTONIX) 4 mg /mL injection 80 mg 1 09/07/2021 polyvinyl alcohol-povidone ( REFRESH CLASSIC) 1.4-0.6 % ophthalmic solution 2 drop 1 09/07/2021 potassium chloride 40 mEq/52 0 mL in sodium chloride 0.9% (premix) 40 mEq 1 09/07/2021 potassium chloride ER (KLOR- CON) extended release tablet 40 mEq 1 09/07/2021 prednisoLONE acetate (PRED F ORTE) 1 % ophthalmic suspension 1 drop 1 09/07/2021 sodium chloride (OCEAN) 0.65 % nasal spray 2 spray 1 09/07/2021 sodium chloride 0.9% flush 0.5-20 mL 1 08/19 sodium chloride 0.9% irrigation 30 mL 1 sodium chloride 0.9% IVPB 0-250 mL 1 2020 sodium phosphate - potassium phosphate (K-PHOS NEUTRAL) tablet 500 mg 1 09/07/2021 tacrolimus (PROGRAF) immedia te-release capsule 0.5 mg 1 09/07/2021 voriCONAZOLE (VFEND) tablet 200 mg 1 2020 white petrolatum-mineral oiL (EUCERIN) cream 1 09/07/2021 [...] 1 IP CONSULT TO NUTRITION SERVICES 1 10/21/20 21 IV Count Last Ordered Date First Orde [...] 09/07/2021 documented in this encounter Care Teams Pre Fabricator Relationship Specialty Start Date End Date Kirt Lindsay DO PCP - General Internal Medicine 02/02/21 Josué Del Valle MD PhD Medical Oncologist/Snap Attacher Medical Oncology 08/26/19 documented as of this encounter
--- OUTSIDE RECORDS SUMMARY | 2024-11-22 10:59 | XMS_ITS | Encounter Summary ---
Author Organization [facility] Address [address] [place] [address] Phone Care Team Providers Care Test Skein Winder Name Role Phone Josué Del Valle MD PhD Unavailable [phone] Kirt Lindsay DO Primary Care Provider [phone] Encounter Details Date Type Department Care Team (Late st Contact Info) Description 08/21/2021 Telephone [facility] Oncology 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 Reviewed above with Dr. Montejo with the following orders received: patient to increase his 50,000 IU to twice weekly x 8 weeks, and repeat vitamin D labs in 2 weeks after he completes this course. He can continue the 500IU daily for now, and I will bump him up once he completes 8 weeks of twice weekly high dose vitamin D. Contacted patient and reviewed above vitamin D dose/schedule. Patient states he will take the 50,000 international units dose on Saturday and Saturday of each week for 8 weeks, and continue vitamin D 500 international units daily. Patient will have vitamin D level checked on 11/02/21 with 1 pm lab appt at [facility] 7. documented in this encounter Plan of Treatment Not on file documented as of this encounter Visit Diagnoses Not on filedocumented in this encounter Additional Health Concerns Infection Onset Date Last Indicated Resolved Time Exposure, COVID-19 Comment:Negative Added automatically based on COVID19 lab answers indicating exposure risk 08/17/2021 08/17/2021 3:05 AM CDT Rhino/Enterovirus Comment:Droplet - Rhino/Enterovirus 08/17/2021 08/17/2021 100 05/2021 3:06 AM CDT documented as of this encounter Care Teams Test Skein Winder Relationship Specialty Start Date End Date Kirt Lindsay DO PCP - General Internal Medicine 02/02/21 Josué Del Valle MD PhD Medical Oncologist/Ritual Circumciser Medical Oncology 08/26/19 documented as of this encounter
--- OUTSIDE RECORDS SUMMARY | 2024-11-22 10:59 | XMS_ITS | Encounter Summary ---
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 7th [place] [address] [place] [address] Phone: tel: Referral ID Status Reason Start Date Expiration Date Visits Requested Visits Authorized [id number] Canceled Specialty Services Required 06/05/2021 12/02/2021 12 12 Encounter Details Date Type Department Care Team (Late st Contact Info) Description 08/11/2021 10:30 AM CDT Lab [facility] Oncology [address] [facility] 7th [place] [address] [place] [address] Type 2 diabetes mellitus with hyperosmolarity 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, with long-term current use of insulin (CMS/HCC) ([facility]); Osteopenia, unspecified location Social History Tobacco Use Types Packs/Day Years [...] on file 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 Gender Identity Not on file Sexual Orientation Not on file documented as of this encounter Plan of Treatment Not on file documented as of this encounter Procedures Procedure Name Priority Date/Time Associated Diagnosis Comments HEMOGLOBIN A1C Routine 08/11/2021 10:57 AM CDT Type 2 diabetes mellitus with hyperosmolarity 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, with long-term current use of insulin (CMS/[facility]) ([facility]) Osteopenia, unspecified location EGFR Routine 08/11/2021 10:51 AM CDT Type 2 diabetes mellitus with hyperosmolarity 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, with long-term current use of insulin (CMS/HCC) ([facility]) Osteopenia, unspecified location VITAMIN D 25 HYDROXY Routine 08/11/2021 10:51 AM CDT Type 2 diabetes mellitus with hyperosmolarity 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, with long-term current use of insulin (CMS/HCC) ([facility]) Osteopenia, unspecified location LIPID PANEL Routine 08/11/2021 10:51 AM CDT Type 2 diabetes mellitus with hyperosmolarity 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, with long-term current use of insulin (CMS/HCC) ([facility]) Osteopenia, unspecified location COMPREHENSIVE METABOLIC PANEL Routine 08/11/2021 10:51 AM CDT Type 2 diabetes mellitus with hyperosmolarity 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, with long-term current use of insulin (CMS/HCC) (HCC) Osteopenia, unspecified location documented in this encounter Results * (ABNORMAL) Hemoglobin A1c (08/11/2021 10:57 AM CDT) [facility] Hgb A1C 8.1(H) 4.0 - 5.6 % [facility] Estimated Average Glucose 186 mg/dL [facility] Comment: The ADA recommends reporting an estimated Average Glucose (eAG) with all Hemoglobin A1c results using the equation derived from a study of 507 normal and diabetic adults. ??Minority populations were underrepresented and children were not included. ?? (Diabetes Care 2020; 43(S1): S66-S76). ??The eAG is not equivalent to a fasting glucose. Blood 08/11/2021 10:5 7 AM CDT 08/11/2021 11:05 AM CDT us Eneida Gibson MD LAB BLOOD ORDERABLES Final Resul t [facility] [place] [address] * eGFR (08/11/2021 10:51 AM CDT) [facility] eGFR >90 90 - 130 mL/min/1.7 3 m2 [facility] Comment: Interpretive Data Reference Interval Normal [...] Current interpretive data was last reviewed 2020 Testing performed by: [facility], [address] [place] [phone] Blood 08/11/2021 10:5 1 AM CDT 08/11/2021 10:54 AM CDT us Eneida Gibson MD LAB BLOOD ORDERABLES Final Resul t [facility] [place] [address] * (ABNORMAL) Comprehensive metabolic panel (08/11/2021 10:51 AM CDT) Sodium 143 135 - 145 mmol/L [facility] Comment:Testing performed by : [facility], [address] [place] [phone] Potassium, pl 4.3 3.3 - 4.9 mmol/L [facility] Comment:Testing performed by : [facility], [address] [place] [phone] Chloride 105 97 - 110 mmol/L [facility] Comment:Testing performed by : [facility], [address] [place] [phone] CO2 33(H) 22 - 32 mmol/L [facility] Comment:Testing performed by : [address] [phone] Anion gap 5 2 - 15 mmol/L [facility] Comment:Testing performed by : [facility], [address] [place] [phone] BUN 12 8 - 25 mg/dL [facility] Comment:Testing performed by : [facility], [address] [place] [phone] Creatinine 0.82 0.80 - 1.30 mg/dL [facility] Comment:Testing performed by : [facility], [address] [place] [phone] Glucose 222(H) 70 - 199 mg/dL [facility] Comment: [...] was last revised 2017. Testing performed by: [place] [id number] Calcium 9.6 8.5 - 10.3 mg/dL [facility] Comment:Testing performed by : [place] [id number] Bilirubin, total 0.3 0.1 - 1.2 mg/dL [facility] Comment:Testing performed by : [address] [phone] Protein, pl 6.8 6.5 - 8.5 g/dL [facility] Comment:Testing performed by : [place] [id number] Albumin 4.0 3.5 - 5.0 g/dL [facility] Comment:Testing performed by : [place] [id number] Alk phos 142(H) 40 - 130 Units/L [facility] Comment:Testing performed by : [place] [id number] ALT 17 7 - 55 Units/L [facility] Comment:Testing performed by : [place] [id number] AST 25 10 - 50 Units/L [facility] Comment:Testing performed by : [place] [id number] Blood 08/11/2021 10:5 1 AM CDT 08/11/2021 10:54 AM CDT us Eneida Gibson MD LAB BLOOD ORDERABLES Final Resul t Performing Organization Address [facility] Phone Number [facility] [place] [address] * (ABNORMAL) Vitamin D 25 hydroxy (08/11/2021 10:51 AM CDT) Vitamin D 25-OH 19(L) 30 - 80 ng/mL [facility] Blood 08/11/2021 10:5 1 AM CDT 08/11/2021 11:09 AM CDT us Eneida Gibson MD LAB BLOOD ORDERABLES Final Resul t Performing Organization Address [facility] Phone Number [facility] [place] [address] * Lipid panel (08/11/2021 10:51 AM CDT) Cholesterol 196 30 - 199 mg/dL [facility] Comment: Interpretive Data Ages < [...] Data was last revised on 2018. Triglycerides 88 <=149 mg/dL [facility] Data was last revised on 2018. HDL 52 >=40 mg/dL [facility] Comment: Interpretive Data Ages < [...] was last revised on 2018. LDL, calculated 126 <=129 mg/dL [facility] was last revised on 2018. Non-HDL Cholesterol 144 mg/dL [facility] Comment: Interpretive [...] was last revised on 2018. Chol/HDL ratio 4 [facility] Blood 08/11/2021 10:5 1 AM CDT 08/11/2021 11:09 AM CDT us Eneida Gibson MD LAB BLOOD ORDERABLES Final Resul t [facility] [place] [address] documented in this encounter Visit Diagnoses Diagnosis Type 2 diabetes mellitus with hyperosmolarity 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, with long-term current use of insulin (HCC) Osteopenia, unspecified location documented in this encounter Orders Appointment Requests Count Last Ordered Date Fi rst Ordered Date ONCBCN LAB APPOINTMENT 1 08/11/2021 documented in this encounter Care Teams Medical Staff Services Manager Relationship Specialty Start Date End Date Kirt Lindsay DO PCP - General Internal Medicine 02/02/21 Josué Del Valle MD PhD Medical Oncologist/Gang Drill Operator Medical Oncology 08/26/19 documented as of this encounter
--- OUTSIDE RECORDS SUMMARY | 2024-11-22 10:59 | XMS_ITS | Encounter Summary ---
Author Organization [facility] Address [address] [facility] [address] [place] [address] Phone Care Team Providers Care Wholesale Loan Processor Name Role Phone Josué Del Valle MD PhD Unavailable [phone] Kirt Lindsay DO Primary Care Provider [phone] Reason for Visit * Reason Comments Post-op - Cataract * Consultation (Routine) - Closed Specialty Diagnoses / Procedures Referred By Ana M anderson Referred To Contact Ophthalmology Diagnoses Combined form of senile cataract of both eyes Kirt Lindsay DO Phone: tel: fax: Ravi Hughes MD [address] [place] [address] Phone: tel: fax: Referral ID Status Reason Start Date Expiration Date V isits Requested Visits Authorized [id number] Closed Specialty Services Required 05/02/2021 10/29/2021 6 6 Encounter Details Date Type Department Care Team (Late st Contact Info) Description 08/02/2021 8:00 AM CDT Office Visit [facility] Ophthalmology [facility] 6th [place] [address] Ravi Hughes MD [address] [facility] [address] [place], [place] [id number] Pseudophakia, left eye (Primary Dx); Xslsa-ixqhwo-vbfx disease (HCC); s/p CE/PCIOL OD 05/12/21 Social History Tobacco Use Types Packs/Day Years [...] on file 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 Post-op - Cataract HPI Post-op - Cataract In left eye. Post-op Period 1 and day(s). Discomfort includes Negative for pain. Comments 1 day POV s/p CE/PCIOL Patient slept well No pain Gtts: PF prn OD Ofloxacin QID OD Philly QID OD (needs refill) Last edited by Henna Abad, COA on 08/02/2021 8:14 AM. (History) Assessment/Plan Diagnoses and all orders for this visit: Pseudophakia, left eye (Primary) Assessment & Plan: POD #1 s/p CE/PCIOL - Doing well, vision and IOP as expected - Prednisolone QID - Ofloxacin QID - Reviewed signs/symptoms endophthalmitis, RT/RD; patient to call immediately if any worsening vision, pain, redness, flashes/floaters/curtains - No lifting/bending/swimming. Champagne shield while sleeping, protective eyewear during day. 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 I discussed this patient with the staff physician and agree with the findings and plan as documented in the staff physician's note. I have made corrections and additions as appropriate. 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 Champagne shield while sleeping, protective eyewear during day. - RTC 1 week documented in this encounter Plan of Treatment Not on file documented as of this encounter Visit Diagnoses Diagnosis Pseudophakia, left eye- Primary Lens replaced by other means Hxqjo-gltolz-wlpo disease (HCC) s/p CE/PCIOL OD 05/12/21 documented in this encounter Eye Exam Visual Acuity (Snellen - Linear) Right eye Left eye Dist sc 20/30 -2 Tonometry (Tonopen, 8:17 AM) Right eye Left eye Pressure 12 12 Pupils Dark Light Shape React APD Right eye 3.5 2.5 Round Brisk None Left eye 1 1 Round nr None Neuro/Psych Oriented x3: Yes Mood/Affect: Normal External Exam Right eye Left eye External edema Slit Lamp Exam Right eye Left eye Lids/Lashes Normal Normal Conjunctiva/Sclera White and quiet resolving sub conjunctival heme Cornea Clear, CCI CCI ,Primitivo Nega tive Anterior Chamber Deep and quiet 1+ cell Iris Round and reactive Round and josé ctive Lens PCIOL PCIOL Care Teams Wholesale Loan Processor Relationship Specialty Start Date End Date Kirt Lindsay DO PCP - General Internal Medicine 02/02/21 Josué Del Valle MD PhD Medical Oncologist/Dry Chain Operator Medical Oncology 08/26/19 documented as of this encounter
--- OUTSIDE RECORDS SUMMARY | 2024-11-22 11:00 | XMS_ITS | Encounter Summary ---
Author Organization [facility] Address [address] [facility] [address] [place] [address] Phone Care Team Providers Care Hot Roller Name Role Phone Josué Del Valle MD PhD Unavailable [phone] Kirt Lindsay DO Primary Care Provider [phone] Reason for Visit * Consultation (Routine) - Canceled Specialty Diagnoses / Procedures Referred By Ana M anderson Referred To Contact Ophthalmology Diagnoses Combined form of senile cataract of both eyes Kirt Lindsay DO Phone: tel: fax: Ravi Hughes MD [address] [place] [address] Phone: tel: fax: Referral ID Status Reason Start Date Expiration Date Visits Requested Visits Authorized [id number] Canceled Specialty Services Required 05/02/2021 10/29/2021 6 6 Encounter Details Date Type Department Care Team (Late st Contact Info) Description 05/13/2021 8:00 AM CDT Office Visit [facility] Ophthalmology 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 HPI POD1 s/p CE/PCIOL OD, slept well, no pain Last edited by Aleksander Sanchez MD on 05/13/2021 8:24 AM. (History) Problem s/p CE/PCIOL OD 05/12/21 Added automatically from request for surgery [id number] Assessment/Plan Diagnoses and all orders for this visit: s/p CE/PCIOL OD 05/12/21 (Primary) Assessment & Plan: POD1 s/p CE/PCIOL OD Doing well, with k edema and AC cell Start ?? PF QID OD ?? Ofloxacin QID OD ?? Philly QID OD RTC 1 week The signs and symptoms of retinal detachment, tears, infection, elevated intra- ocular pressure werereviewed with the patient. Patient knows to call should they have any of the symptoms. PLAN FOR NEXT VISIT Return for 1 week as scheduled. Cosigned by Ravi Hughes MD at 05/13/2021 8:29 AM CDT Associated attestation - Ravi Hughes MD - 05/13/2021 8:29 AM CDT I was present with the resident or fellow during the history and exam. I discussed this patient with the staff physician and agree with the findings and plan as documented in the staff physician's note. I have made corrections and additions as appropriate. Willam Hughes MD documented in this encounter Miscellaneous Notes * Assessment & Plan Note - Aleksander Sanchez MD - 05/13/2021 8:12 AM CDT Associated Problem(s): s/p CE/PCIOL OD 05/12/21 POD1 s/p CE/PCIOL OD Doing well, with moderate k edema and AC cell No sig wound edema Start ?? PF QID OD ?? Ofloxacin QID OD ?? 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 Eye Exam Visual Acuity (Snellen - Linear) Right eye Left eye Dist sc 20/200 Dist ph sc 20/150 Tonometry (I-Care, 8:09 AM) Right eye Left eye Pressure 13 13 External Exam Right eye Left eye External edema Slit Lamp Exam Right eye Left eye Lids/Lashes edema Conjunctiva/Sclera injection, ROSA MARIA nasally Cornea 2+ edema with d-fold s centrally, endo chatter with some fine cell dusting Anterior Chamber deep, 3+ cell Iris round pupil, constricted Lens PCIOL Care Teams Hot Roller Relationship Specialty Start Date End Date Kirt Lindsay DO PCP - General Internal Medicine 02/02/21 Josué Del Valle MD PhD Medical Oncologist/Privacy Compliance Manager Medical Oncology 08/26/19 documented as of this encounter
--- OUTSIDE RECORDS SUMMARY | 2024-11-22 11:00 | XMS_ITS | Encounter Summary ---
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 requested labs [...] for requested labs within last 720 hours. Lissa index score: 90 documented in this encounter Miscellaneous Notes * Perioperative Nursing Note - Romana Jefferson RN - 08/01/2021 7:46 AM CDT Patient belongings under stretcher. 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 Item Serial No. Flower Buncher Or Picker Lot No. LRB No. Used Action JUS SURGICAL SN60WF.170 ACRYSOF IQ NATURAL STABLEFORCE ACRYSERT 6MM 13MM 1 PIECE FOLDABLE - [id number] - [id number] Lens JUS SURGICAL SN60WF.170 Acrysof Iq Natural Stableforce Acrysert 6mm 13mm1 Piece Foldable [id number] Jus [employer] 0 Left 1 Implanted OPERATIVE DETAILS Specimens: No specimens collected during this procedure. PROCEDURE: The patient was taken to the operating room and appropriately connected to cardiac, blood pressure and pulse oximetry monitors. A verbal timeout occurred to verify the patient's name, date of , and surgical site and procedure to be performed. A retrobulbar block was performed. Digital massage was performed for five minutes to allow infiltration of anesthetic block. The operative eye was prepped and draped in the usual sterile ophthalmic fashion, and a lid speculum was placed. The operative microscope was brought into view over the operative eye. A paracentesis was made using a sideport blade inferotemporally. Viscoat was injected to fill the anterior chamber. A 2.4-mm keratome was used to make a biplanar clear corneal incision temporally. A continuous curvilinear capsulorrhexis was created with a cystitome needle and Utrata forceps. Hydrodi ssection was achieved with BSS on a 25-gauge flat- tip cannula. The lens was rotated with a Gardere and it rotated freely. Phacoemulsification was used to remove the entirety of the lens using divide and conquer technique, with the Wale chopper inserted through the paracentesis to assist with nuclear manipulation. Coaxial irrigation and aspiration was used to remove cortical material. The capsular bag was filled with Viscoat and and the posterior chamber lens was injected into the capsular bag. A Sinskey hook was used to position the trailing haptic. Viscoelastic was removed using the coaxial irrigation and aspiration handpiece. The paracenteses wounds were hydrated with BSS. Intra-ocular Miostat was given. BSS was used to adjust the eye to physiologic pressure. All the wounds were tested for leakage and found to be watertight. Subconjunctival injections of dexamethasone and cefazolin were given. The eyelid speculum was removed. The patient's face was cleaned. Tobradex ointment was placed in the eye. The eye was patched and shielded. The patient was wheeled to recovery in stable condition and is to follow up the next day in clinic. The patient tolerated the procedure well and there were no complications. Dr. Hughes was present and scrubbed for the entire duration of the case. Complications: None Condition on Discharge from the operating room was stable Betty Gonzales MD Date: 08/01/2021 Time: 9:51 AM TEACHING ATTESTATION : Dr. Hughes was present and directly participated in the entire procedure (including opening and closing). Cosigned by Ravi Hughes MD at 09/20/2021 4:44 PM CDT Associated attestation - Ravi Hughes MD - 09/20/2021 4:44 PM CDT I was present with the resident or fellow during the entire procedure. I discussed this patient with the staff physician and agree with the findings and plan as documented in the staff physician's note. I have made corrections and additions as appropriate. Willam Hughes MD * Brief Op Note - Betty Gonzales MD - 08/01/2021 7:44 AM CDT Operative Progress Note Surgical Team: Surgeon(s) and Role: * Ravi Hughes MD - Primary * Bill Nicholas MD - Resident - Assisting * Betty Gonzales MD - Fellow Anesthesiologist: Martín Lan MD DISTRICT SALES MANAGER: Parmjit Chávez CRNA Solderer Torch: Romana Jefferson RN Scrub: Sosa Case RN FLOAT: Cameron Benitez RN DATE OF SURGERY : 08/01/2021 Preoperative Diagnosis: Pre-op Diagnosis * Combined forms of age-related cataract of left eye [H25.812] Postoperative Diagnosis: Post-op Diagnosis * Combined forms of age-related cataract of left eye [H25.812] Procedure(s): Procedure(s) (LRB): EXTRACTION CATARACT - PHACOEMULSIFICATION AND LENS IMPLANT (Left) Operative Findings: Combined cataract left eye Estimated Blood Loss: No blood loss documented. Intraoperative Fluids: N/A mls Specimens: No specimen collected in procedure Implants: Implant Name Type Inv. Item Serial No. Flower Buncher Or Picker Lot No. LRB No. Used Action JUS SURGICAL SN60WF.170 ACRYSOF IQ NATURAL STABLEFORCE ACRYSERT 6MM 13MM 1 PIECE FOLDABLE - [id number] - [id number] Lens JUS SURGICAL SN60WF.170 Acrysof Iq Natural Stableforce Acrysert 6mm 13mm1 Piece Foldable [id number] [employer] 0 Left 1 Implanted Blood/Blood Products Transfused: N/A mls Complications: None Condition on Discharge from the operating room was stable Betty Gonzales MD Date: 08/01/2021 Time: 9:32 AM TEACHING ATTESTATION : Dr. Hughes was present and directly participated in the entire procedure (including opening and closing). * Pre-Procedure Instructions - Dinora Beth NP - 07/25/2021 8:03 AM CDT [facility] CPAP Clinic Location: [facility] CPAP The night before your surgery: * Do not eat or drink anything after midnight. This includes candy, mint, gums, chewable antacids (TUMS, Rolaids) and cough drops * Do not smoke after midnight the night before surgery. It is best to stop smoking now to improve your health. The morning of your surgery: * You may brush your teeth and [...] of surgery. * If having surgery at [facility], you may want to bring a credit card if you want to use our Mobile Pharmacy for your discharge medications. Mobile pharmacy is not available at [facility], the [facility], or the [place] [facility]. Outpatient Surgery: * You must have a responsible adult drive you home and stay with you for 24 hours after your surgery * You cannot be alone at home or in a hotel * Please call your surgeon's office if you do not have someone to drive you home and/or stay with you after surgery * Please bring any items you may need to spend the night in the hospital. Sometimes patients need to be cared for in the hospital overnight. If you have Diabetes: * You may also need less insulin than usual. * If you use insulin and are placed on a liquid diet, be sure to drink some liquids that contain sugar. * If your blood sugar is low [...] on day of surgery if needed ??? atorvastatin (LIPITOR) 40 mg tablet Take medication as prescribed ??? ergocalciferol (VITAMIN D) 50,000 unit capsule Don't take on day of surgery ??? gabapentin (NEURONTIN) 300 mg capsule Take morning of surgery ??? guaifenesin (MUCINEX ORAL) Don't take on day of surgery ??? insulin glargine (LANTUS, BASAGLAR) 100 unit/mL (3 mL) pen for injection 12 units the night before suregery ??? insulin lispro (HumaLOG, ADMELOG) 100 unit/mL pen for injection Don't take on day of surgery ??? montelukast (SINGULAIR) 10 mg tablet Take morning of surgery ??? mycophenolate mofetil (CELLCEPT) 500 mg tablet Take morning of surgery ??? ofloxacin (OCUFLOX) 0.3 % ophthalmic solution Per surgeon's instructions ??? omega-3 fatty acids (LOVAZA) 1 gram capsule Don't take on day of surgery ??? prednisoLONE acetate (PRED FORTE) 1 % ophthalmic suspension Per surgeon's instructions ??? sodium chloride (NOE 128) 2 % ophthalmic solution Per surgeon's instructions ??? tacrolimus (PROGRAF) 0.5 mg immediate-release capsule Take morning of surgery ??? Trelegy Ellipta 100-62.5-25 mcg inhaler Take morning of surgery ??? voriCONAZOLE (VFEND) 200 mg tablet Take morning of surgery ??? furosemide (LASIX) 20 mg tablet Take morning of surgery Your surgeon will tell you IF YOU SHOULD STOP the following medications and WHEN TO STOP taking them. Do not stop taking them on your own without being told to do so: ??? Xarelto 20 mg tablet General Instructions For Medications: ?? For medications that you are instructed to [...] bowel prep or special diet before surgery * Perioperative Nursing Note - Lissy Mckenzie RN - 07/17/2021 11:45 AM CDT [facility] for Preoperative Assessment and Planning Perioperative Nursing Note Telephone Preoperative Evaluation ([facility]) - TELEPHONE ONLY, NO PHYSICAL EXAM Date: 07/17/21 Vitals: 07/17/21 1135 Weight: 64 kg (141 lb 3.2 oz) Height: 180.3 cm (5' 11 ) CHEST CIRCUMFERENCE: n/a Social History Tobacco Use Smoking Status Current [...] Outpatient Medications Marked as Taking for the 08/01/21 encounter (Hospital Encounter) Medication Sig Dispense Refill [...] as needed ) 8.5 g 3 ??? atorvastatin (LIPITOR) 40 mg tablet Take 1 tablet (40 mg total) by mouth daily (Patient taking differently: Take 40 mg by mouth every morning ) 30 tablet 6 ??? ergocalciferol (VITAMIN D) 50,000 unit capsule Take 1 capsule (50,000 Units total) by mouth once a week 12 capsule 3 ??? gabapentin (NEURONTIN) 300 mg capsule TAKE 1 CAPSULE BY MOUTH FOUR TIMES DAILY (Patient taking differently: Take 600 mg by mouth nightly ) 120 capsule 3 ??? guaifenesin (MUCINEX ORAL) Take 1 Dose by mouth as needed (COPD) ??? insulin glargine (LANTUS, BASAGLAR) 100 unit/mL (3 mL) pen for injection INJECT 15 UNITS NIGHTLY SUB-Q. (Patient taking differently: Inject 15 Units under the skin nightly ) 1 pen 5 ??? insulin lispro (HumaLOG, ADMELOG) 100 unit/mL pen for injection INJECT 5-10 UNITS TID WITH MEALS PLUS SLIDING SCALE. TDD OF 35 UNITS. (Patient taking differently: Inject under the skin 3 (three) times a day with meals INJECT 5-10 UNITS TID WITH MEALS PLUS SLIDING SCALE. TDD OF 35 UNITS.) 10 pen6 ??? montelukast (SINGULAIR) 10 mg tablet TAKE [...] solution Administer 1 drop into both eyes 2 (two) times a day (Patient taking differently: Administer 1 drop into the right eye 4 (four) times a day ) 5 mL 2 ??? omega-3 fatty acids (LOVAZA) 1 gram [...] eye 4 (four) times a day ) 5 mL 11 ??? sodium chloride (NOE 128) 2 % ophthalmic solution Administer 1 drop into the right eye 4 (four) times a day ??? 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 voriCONAZOLE (VFEND) 200 mg tablet Take 200 mg by mouth 2 (two) times a day ??? 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 ) 30 tablet 1 Implants Bone Titanium Maynor - Implanted (Left) Leg As of 11/22/2018 Status: Implanted Lens Jus Surgical Sn60wf.170 Acrysof Iq Natural Stableforce Acrysert 6mm 13mm 1 Piece Foldable - [id number] - [id number] - Implanted (Right) Lens Inventory item: JUS SURGICAL SN60WF.170 Acrysof Iq Natural Stableforce Acrysert 6mm 13mm 1 Piece Foldable Model/Cat number: SN60WF.170 Serial number: [id number] Flower Buncher Or Picker: Vaioni Device identifier: [id number] Device identifier type: GS1 As of 05/12/2021 Status: Implanted SKIN Piercings Remaining: No Wound (LDAs) Type of Wound (LDA): (denies) SCREENINGS Lissa index score: 90 NUTRITION PATIENT CARE PLANNING Advance Directives (For Healthcare) Have you reviewed your Advance Directive and is it valid for this stay?: No Advance Directive: Patient does not have advance directive Information Provided on Healthcare Directives: No Assistive Devices/DME: Dentures lower, Dentures upper, Oxygen, Eyeglasses Hearing - Right Ear: Functional Hearing - Left Ear: Functional Discharge Planning Type of Residence: Private residence Living Arrangements: Friends Support Systems: Friends/neighbors Patient expects to be discharged to:: Private residence COVID Screening Covid-19 Screening In the last 10 days have you had any new or worsening cough, SOB, fever (>=100F), body aches, loss of taste or smell, diarrhea or vomiting, or sore throat?: No Have you had close contact with anyone with confirmed or suspected COVID-19 in the past 2 weeks?: No Do you live in or work in a congregate living facility (ex. assisted living/mcfp facility, penitentiary, detention)?: No Have you tested positive for COVID-19 within the last 14 days?: No Have you previously tested positive for COVID-19? No Have you had a COVID -19 exposure within the past 14 days? No Were both or all people exposed wearing masks (cloth, isolation, surgical or N95)? N/A TESTING PLAN-See Instructions for plan We recommend you Self-Isolate after COVID Testing: Stay at home, if possible until your surgery date. Maintain a 6 foot distance from other people (social distancing). Avoid touching your eyes, nose and mouth with unwashed hands. Wash your hands often with soap and water for at least 20 seconds. Use an alcohol- based hand belt cutter that contains at least 60% alcohol if soap and water are not available. ADDITIONAL COMMENTS/ FOLLOW UP * Pre-Procedure Instructions - Lissy Mckenzie RN - 07/17/2021 11:40 AM CDT PRE-SURGICAL INSTRUCTIONS ??? General Information ?? Surgery location provided to patient. ?? Arrival time and surgical time will be provided by your surgeon. ?? Wear something clean, loose, comfortable and easy to get in and out of. ?? Leave your valuables and any jewelry at home (No metal or piercings are allowed in the operatingroom) ?? Bring your insurance card, a photo ID (like a Biomedical Manager's license) and a method of payment for any insurance copay, deductible, or copay for discharge medications. ?? Bring a complete, up to date list of all of your medications including any over the counter medications or supplements you may take. ? How To Prepare Your Skin For Surgery Antiseptic/antibacterial soap will decrease the amount of germs on your skin. It is important to minimize the risk of getting an infection by doing the following: ?? Change all the linens on the bed the night before surgery so you are sleeping on clean fresh sheets and pillowcases. ?? Shower the evening before and the morning of surgery with an antibacterial soap such as Dial or a surgical soap known as chlorhexidine (Hibiclens). You can purchase this soap at any pharmacy or department store or come by our CPAP clinic and we will give it to you free of charge. Do not use thissoap on your face or hair. ?? Wash your hair and face with your regular shampoo (no conditioners) and facial cleanser. ?? Take a shower using ?? cup (2 oz.) of antiseptic soap applied to a clean fresh washcloth. Scrub your entire body from the neck down. If you can't reach the surgical site, such as your back, have someone help you with your shower. Step out of the water and leave soap on your skin for 2 minutes prior to rinsing off. Rinse thoroughly and dry yourself off with a clean fresh dry towel. ?? Wear clean clothes or pajamas to sleep in and on morning of surgery. ?? Nothing extra on the skin or hair such as deodorant, makeup, hair products, lotions, powders, Vaseline, creams, or perfumes the evening before and the morning of surgery. ?? The morning of the surgery repeat the shower process with the remaining ?? cup (2 oz.) of surgical scrub using another fresh wash cloth and towel. ?? Do not shave the morning of surgery. ?? REMEMBER no deodorant, make-up, lotions, powders, creams, Vaseline, oils, conditioners or hair products the morning of the surgery. ??? Eye Surgery Process ?? Before the surgery, you will be asked to change into a gown. ?? As you get ready for your surgery; your nurse will ask you questions about your medical history and review your medications with you. ?? An IV will be placed so that we may administer medication to keep you comfortable. ?? You will meet your surgical team. ?? You will be taken by stretcher to the operating room for your surgery. ?? After your surgery, you will come to the recovery area. ?? A Fall Risk band had been placed on your arm to remind you that you are at higher risk for falling after having eye surgery. You can remove this after 24 hours. ?? Before you leave, we will review your medications with you and special instructions. COVID TESTING PLAN COVID TEST not indicated related to surgery protocol. If you have COVID testing or should have COVID testing for your surgery/procedure, please read below section: If you need to reschedule your COVID test to a different location or if your surgery gets rescheduled, you MUST call [phone] Saturday-Saturday 8am-4:30pm to get your COVID testing rescheduled or your lab order will not be available at Testing Sites. COVID Testing is only valid for up to 96 hours prior to surgery date, unless otherwise specified. If you are unable to reach staff at the above phone number, please call the CPAP Staff at [phone]. This number cannot order a lab test, but can attempt to contact the above number/staff to assist you. We are available Saturday-Saturday 8am-4:30pm . We recommend you Self-Isolate after COVID Testing: Stay at home, if possible until your surgery date. Maintain a 6 foot distance from other people (social distancing). Avoid touching your eyes, nose and mouth with unwashed hands. Wash your hands often with soap and water for at least 20 seconds. Use an alcohol- based hand belt cutter that contains at least 60% alcohol if soap and water are not available. All patients should read below section: All visitors/patients are being asked to wear a clean mask when entering the hospital. COVID 19 Updates & Visitor Policy: Please access [email or web address] for the most updated information. Information on [facility]: Please view [email or web address] (Patient & Visitor Information) for additional details regarding Advanced Directive forms, AWARE, directions, parking information, lodging, Internet access, dining and more. Information on [facility]: Please view [email or web address] (Patient and Visitor Information) for parking/directions and more. For MyChart information, to activate account or password recovery, please go to [email or web address] or call [phone] (toll-free: [phone]). Information for Suicide Prevention: National Suicide Prevention Lifeline (1-306-326-FINE (9359)). Surgery Times: For patients having surgery @ [facility] or [facility], if your surgeon's office has not notified you of your surgery time by NOON THE BUSINESS DAY BEFORE your surgery, please call [phone] and ask for your surgeon'brynfice Dr. Hughes. For patients having [facility] @ [facility], if your surgeon's office has not notified you of your surgery time by NOON THE BUSINESS DAY BEFORE your surgery, please call the surgery center [phone]. documented in this encounter Plan of Treatment Not on file documented as of this encounter Procedures Procedure Name Priority Date/Time Associated Diagnosis Comments POCT GLUCOSE DEVICE Routine 08/01/2021 8 :42 AM CDT EXTRACTION CATARACT - PHACOEMULSIFICATION AND LENS IMPLANT 08/01/2021 7:26 AM CDT Combined forms of age-related cataract of left eye POCT GLUCOSE DEVICE Routine 08/01/2021 7 :06 AM CDT documented in this encounter Results * POCT glucose (08/01/2021 8:42 AM CDT) Glucose, POC 99 70 - 199 mg/dL [facility] Blood 08/01/2021 8:42 AM CDT 08/01/2021 8:42 AM CDT us Ravi Hughes MD LAB POCT ORDERABLES - DEVICE F inal Result [facility] [place] [address] * POCT glucose (08/01/2021 7:06 AM CDT) Glucose, POC 123 70 - 199 mg/dL [facility] Blood 08/01/2021 7:06 AM CDT 08/01/2021 7:06 AM CDT us Ravi Hughes MD LAB POCT ORDERABLES - DEVICE F inal Result ZULEMA Suarez [facility] Department [place] [address] documented in this encounter Visit Diagnoses Diagnosis Combined form of senile cataract of both eyes- Primary Combined forms of age-related cataract of left eye documented in this encounter Admitting Diagnoses Diagnosis Combined form of senile cataract of both eyes documented in this encounter Administered Medications Inactive Administered Medications - up to 3 most recent administrations Medication Order MAR Action Action Date Dose Rate Site balanced salt soln no.2 irrig. (BSS) intraocular solution As needed, Starting on Sat08/01/21 at 0743, Intra-Op Given 08/01/2021 7:43 AM CDT 15 mL Left Eye BSS-EPINEPHrine 0.3 mg preservative free intraocular solution (total volume 500 mL) As needed, Starting on Sat08/01/21 at 0743, Intra-Op Given 08/01/2021 7:43 AM CDT 500 mL Left Eye carbachoL (MIOSTAT) 0.01 % intraocular solution As needed, Starting on Sat08/01/21 at 0744, Intra-Op, Indications: Miosis Induction During Ocular SurgeryIndications:Miosis Induction During Ocular Surgery Given 08/01/2021 8:26 AM CDT 0.5 mL Left Eye cefuroxime (ZINACEF) 20 mg/2 mL in sodium chloride 0.9% intracameral (premix) As needed, Starting on Sat08/01/21 at 0745, Intra-Op Given 08/01/2021 7:45 AM CDT 0.5 mL Left Eye dexAMETHasone (DECADRON) 4 mg/mL injection Administer over 2 Minutes, As needed, Starting on Sat08/01/21 at 0744, Intra-Op Given 08/01/2021 7:44 AM CDT 2 mg Left Eye dilating cocktail ophthalmic solution 0.3 mL 0.3 mL, left eye, Every 15 min, First dose on Sat08/01/21 at 0715, For 2 doses, Pre-Op, After each dose, have patient close eye and secure with paper tape. Ingredients per 0.3 mL Lidocaine 2% jelly 0.214 mL Phenylephrine 10% ophth drops 0.021 mL Cyclopentolate 1% ophth drops 0.021 mL Tropicamide 1% ophth drops 0.021 mL Ketorolac 0.5% ophth drops 0.021 mL, Indications: Mydriasis During Ocular SurgeryIndications:Mydriasis During Ocular Surgery Given 08/01/2021 7:18 AM CDT 0.3 mL Given 08/01/2021 6:50 AM CDT 0.3 mL Lactated Ringer's (LR) infusion 30 mL/hr, intravenous, Continuous, Starting on Sat08/01/21 at 0715, Pre-Op Restarted 08/01/2021 8:29 AM CDT Rate/Dose Verify 08/01/2021 7:21 AM CDT 30 mL/h r New Bag 08/01/2021 6:59 AM CDT 30 mL/hr 30 mL/hr lidocaine 1%, bupivicaine 0.375%, hyaluronidase 75 units preservative free ophthalmic solution (total volume 5 mL) As needed, Starting on Sat08/01/21 at 0744, Intra-Op Given 08/01/2021 7:44 AM CDT 5 mL Left Eye neomycin-polymyxin B-dexAMETHasone (MAXITROL) ophthalmic ointment As needed, Starting on Sat08/01/21 at 0745, Intra-Op Given 08/01/2021 7:45 AM CDT 1 application (deactivated) Left Eye sodium chloride 0.9% flush 0.5-20 mL 0.5-20 mL, intra-catheter, Every 8 hours scheduled, First dose on Sat08/01/21 at 0715, Pre-Op, Flush volume based on line type and size. sodium chloride 0.9% flush 0.5-20 mL 0.5-20 mL, intra-catheter, As needed, line care, Starting on Sat08/01/21 at 0642, Pre-Op, Flush volume based on line type and size. Flush before and after each use. 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 guaifenesin (MUCINEX ORAL) Take 1 Dose by mouth as needed (COPD) 08/19/2021 voriCONAZOLE (VFEND) 200 mg tabletIndications :stem Cell Transplant Take 200 mg by mouth 2 (two) times a day 06/18/2021 12/13/2021 added in this encounter Active and Recently Administered Medications Times are shown in CDT. Scheduled Medication Order 07/30/2021 07/31/2021 08/01/2021 dilating cocktail ophthalmic solution 0.3 mL (COMPLETED) 0.3 mL, left eye, Every 15 min, First dose on Sat08/01/21 at 0715, For 2 doses, Pre-Op, After each dose, have patient close eye and secure with paper tape. Ingredients per 0.3 mL Lidocaine 2% jelly 0.214 mL Phenylephrine 10% ophth drops 0.021 mL Cyclopentolate 1% ophth drops 0.021 mL Tropicamide 1% ophth drops 0.021 mL Ketorolac 0.5% ophth drops 0.021 mL, Indications: Mydriasis During Ocular Surgery 0650 (Given - Provid er: Jesica Araujo, BECKI)0718 (Given - Provider: Jesica Araujo RN) sodium chloride 0.9% flush 0.5-20 mL(Linked Group 1) 0.5-20 mL, intra-catheter, Every 8 hours scheduled, First dose on Sat08/01/21 at 0715, Pre-Op, Flush volume based on line type and size. 0715 (Due) Continuous Medication Order 07/30/2021 07/31/2021 08/01/2021 Lactated Ringer's (LR) infusion 30 mL/hr, intravenous, Continuous, Starting on Sat08/01/21 at 0715, Pre-Op 0659 (New Bag - Prov ider: Jesica Araujo, BECKI)0721 (Rate/Dose Verify - Provider: Parmjit Chávez CRNA)0828 (Paused - Provider: Parmjit Chávez CRNA - Comment: Switch to gravity)0829 (Restarted - Provider: Parmjit Cháevz CRNA)09 (Stopped - Provider: Hilda Michelle RN) Lactated Ringer's (LR) infusion 125 mL/hr, intravenous, Continuous, Starting on Sat08/01/21 at 0915, Phase I 0915 (Due) PRN Medication Order 07/30/2021 07/31/2021 08/01/2021 balanced salt soln no.2 irrig. (BSS) intraocular solution (CANCELED) As needed, Starting on Sat08/01/21 at 0743, Intra-Op 0743 (Given - Provid er: Ravi Hughes MD) BSS-EPINEPHrine 0.3 mg preservative free intraocular solution (total volume 500 mL) (CANCELED) As needed, Starting on Sat08/01/21 at 0743, Intra-Op 0743 (Given - Provid er: Ravi Hughes MD) carbachoL (MIOSTAT) 0.01 % intraocular solution (CANCELED) As needed, Starting on Sat08/01/21 at 0744, Intra-Op, Indications: Miosis Induction During Ocular Surgery 0744 (Canceled Entry - Provider: Ravi Hughes MD)0826 (Given - Provider: Ravi Hughes MD) cefuroxime (ZINACEF) 20 mg/2 mL in sodium chloride 0.9% intracameral (premix) (CANCELED) As needed, Starting on Sat08/01/21 at 0745, Intra-Op 0745 (Given - Provid er: Ravi Hughes MD - Comment: injected subconjunctival) dexAMETHasone (DECADRON) 4 mg/mL injection (CANCELED) Administer over 2 Minutes, As needed, Starting on Sat08/01/21 at 0744, Intra-Op 0744 (Given - Provid er: Ravi Hughes MD - Comment: given subconjunctival) diphenhydrAMINE (BENADRYL) injection 12.5 mg 12.5 mg, intravenous, Every 15 min PRN, itching, Starting on Sat08/01/21 at 0833, For 2 doses, Phase I, Max cumulative dose 50 mg., Indications: Itching fentaNYL (SUBLIMAZE) preservative free injection 50 mcg 50 mcg, intravenous, Once as needed, uncontrolled pain on PACU admission, Starting on Sat08/01/21 at 0833, For 1 dose, Phase I, Then proceed to PACU 1st line analgesic., Indications: Pain HYDROmorphone (DILAUDID) injection 0.2 mg 0.2 mg, intravenous, Administer over 2 Minutes, Every 10 min PRN, 1st line for pain, Starting on Sat08/01/21 at 0833, Phase I, Notify Anesthesiologist if total PACU dose reaches 2 mg and pain score 5/10 or more., Indications: Pain lidocaine 1%, bupivicaine 0.375%, hyaluronidase 75 units preservative free ophthalmic solution (total volume 5 mL) (CANCELED) As needed, Starting on Sat08/01/21 at 0744, Intra-Op 0744 (Given - Provid er: Ravi Hughes MD - Comment: injected retrobulbar) meperidine (DEMEROL) preservative free injection 12.5 mg 12.5 mg, intravenous, Administer over 5 Minutes, Every 10 min PRN, shivering, Starting on Sat08/01/21 at 0833, For 2 doses, Phase I, Max cumulative dose 25 mg., Indications: Shivering naloxone (NARCAN) 0.4 mg/mL injection 0.04-0.4 mg 0.04-0.4 mg, intravenous, Once as needed, other, excessive sedation/respiratory depression, Starting on Sat08/01/21 at 0833, For 1 dose, Phase I, Dilute 0.4 mg with 9 mL NS (final concentration 0.04 mg/mL). For respiratory depression (respiratory rate less than 6), administer 0.4 mg IVP over 30 seconds. For excessive sedation administer 0.04 mg (1 mL) every 1 minute until desired level of alertness. For IV, administer over 30 seconds., Indications: Opioid Toxicity neomycin-polymyxin B-dexAMETHasone (MAXITROL) ophthalmic ointment (CANCELED) As needed, Starting on Sat08/01/21 at 0745, Intra-Op 0745 (Given - Provid er: Ravi Hughes MD) ondansetron (ZOFRAN) injection 4 mg 4 mg, intravenous, Administer over 2 Minutes, Once as needed, nausea, vomiting, Starting on Sat08/01/21 at 0833, For 1 dose, Phase I, Proceed to prochlorperazine if ondansetron has been given within the last 6 hours. prochlorperazine (COMPAZINE) injection 10 mg 10 mg, intravenous, Administer over 2 Minutes, Once as needed, nausea, vomiting, Starting on Sat08/01/21 at 0833, For 1 dose, Phase I, If nausea/vomiting not relieved by ondansetron within 30 minutes or if ondansetron has been given within the last 6 hours. sodium chloride 0.9% flush 0.5-20 mL(Linked Group 1) 0.5-20 mL, intra-catheter, As needed, line care, Starting on Sat08/01/21 at 0642, Pre-Op, Flush volume based on line type and size. Flush before and after each use. tetracaine (PF) (ALTACAINE) 0.5 % ophthalmic solution (CANCELED) As needed, Starting on Sat08/01/21 at 0747, Intra-Op, Indications: Administration of Corneal Anesthesia 0747 (Given - Provid er: Ravi Hughes MD) Linked Groups Order Group 1: Saline lock IV (CANCELED) Routine, Once (Routine), On Sat08/01/21 at 0643, For 1 occurrence, Pre-Op And sodium chloride 0.9% flush 0.5-20 mLJump to med 0.5-20 mL, intra-catheter, Every 8 hours scheduled, First dose on Sat08/01/21 at 0715, Pre-Op, Flush volume based on line type and size. And sodium chloride 0.9% flush 0.5-20 mLJump to med 0.5-20 mL, intra-catheter, As needed, line care, Starting on Sat08/01/21 at 0642, Pre-Op, Flush volume based on line type and size. Flush before and after each use. documented in this encounter Orders Medications Ordered That Girma ht Not Have Been Administered Count Last Ordered Date First Ordered Date diphenhydrAMINE (BENADRYL) i njection 12.5 mg 1 08/01/2021 fentaNYL (SUBLIMAZE) preserv ative free injection 50 mcg 1 08/01/2021 HYDROmorphone (DILAUDID) injection 0.2 mg 1 08/01/2021 Lactated Ringer's (LR) infusion 1 lidocaine PF (XYLOCAINE) 10 mg/mL (1 %) preservative free injection 2-10 mg 1 08/01/2021 meperidine (DEMEROL) preserv ative free injection 12.5 mg 1 08/01/2021 naloxone (NARCAN) 0.4 mg/mL injection 0.04-0.4 mg 1 08/01/2021 ondansetron (ZOFRAN) injection 4 mg 1 08/01 prochlorperazine (COMPAZINE) injection 10 mg 1 08/01/2021 sodium chloride 0.9% flush 0.5-20 mL 2 07/19 documented in this encounter Care Teams Final Inspector Balance Wheel Relationship Specialty Start Date End Date Kirt Lindsay DO PCP - General Internal Medicine 02/02/21 Josué Del Valle MD PhD Medical Oncologist/Chicken Cleaner Medical Oncology 08/26/19 documented as of this encounter
--- OUTSIDE RECORDS SUMMARY | 2024-11-22 11:00 | XMS_ITS | Encounter Summary ---
Author Organization [facility] Address [address] [facility] [address] [place] [address] Phone Care Team Providers Care Engineering Writer Name Role Phone Josué Del Valle MD PhD Unavailable [phone] Kirt Lindsay DO Primary Care Provider [phone] Reason for Visit * Reason Comments Post-op - Cataract * Consultation (Routine) - Closed Specialty Diagnoses / Procedures Referred By Ana M anderson Referred To Contact Ophthalmology Diagnoses Combined form of senile cataract of both eyes Kirt Lindsay DO Phone: tel: fax: Ravi Hughes MD [address] [place] [id number] Phone: tel: fax: Referral ID Status Reason Start Date Expiration Date V isits Requested Visits Authorized [id number] Closed Specialty Services Required 05/02/2021 10/29/2021 6 6 Encounter Details Date Type Department Care Team (Late st Contact Info) Description 05/17/2021 1:15 PM CDT Office Visit [facility] Op[facility]mology [facility] [address] [place] [address] Ravi Hughes MD [address] [facility] [address] [place], [place] [id number] s/p CE/PCIOL OD 05/12/21 (Primary Dx); Combined form of senile cataract of both eyes Social History Tobacco Use Types Packs/Day Years Used Date Smoking Tobacco: Every Day Cigarettes 0.3 39 Started: 1985 Smokeless Tobacco: Never Sex and Gender Information Value Date Recorded Sex Assigned at Not on file Legal Sex Male 10:48 AM [employer] Gender Identity Not on file Sexual Orientation Not on file documented as of this encounter Patient Instructions * Patient Instructions* Ravi Hughes MD - 05/17/2021 1:15 PM CDT documented in this encounter Ordered Prescriptions Prescription Sig Dispense Quantity Refills Last Filled Start Date End Date prednisoLONE acetate (PRED FORTE) 1 % ophthalmic suspension Administer 1 drop into the right eye 4 (four) times a day 5 mL 11 05/17/2021 documented in this encounter Progress Notes * Ravi Hughes MD - 05/17/2021 1:15 PM CDT Chief Complaint Patient presents with ??? Post-op - Cataract HPI Post-op - Cataract In right eye. Post-op Period 1 and week(s). Comments 1 week POV s/p CE/PCIOL OD 05/12/21 Pt states vision is getting better in OD. Pt states no pain/discomfort. Gtts: PF QID OD Ofloxacin QID OD-using also in OS PRN Philly QID OD Last edited by Bonnie Potter on 05/17/2021 1:11 PM. (History) Assessment/Plan Diagnoses and all orders for this visit: s/p CE/PCIOL OD 05/12/21 (Primary) Assessment & Plan: POW1 s/p CE/PCIOL right eye (OD) Dense NS OS Doing well, with less k edema and AC cells Better vision and stable IOP No sig wound edema Start ?? PF QID OD ?? Ofloxacin QID OD ?? Philly QID OD RTC 1 month Combined form of senile cataract of left eye Other orders - prednisoLONE acetate (PRED FORTE) 1 % ophthalmic suspension; Administer 1 drop into the right eye4 (four) times a day Willam Hughes MD documented in this encounter Miscellaneous Notes * Assessment & Plan Note - Ravi Hughes MD - 05/17/2021 1:45 PM CDT Associated Problem(s): s/p CE/PCIOL OD 05/12/21 POW1 s/p CE/PCIOL right eye (OD) Dense NS OS Doing well, with less k edema and AC cells Better vision and stable IOP No sig wound edema Start ?? PF QID OD ?? Ofloxacin QID OD ?? Philly QID OD RTC 1 month documented in this encounter Plan of Treatment Not on file documented as of this encounter Visit Diagnoses Diagnosis s/p CE/PCIOL OD 05/12/21- Primary Combined form of senile cataract of both eyes documented in this encounter Discontinued Medications Medication Sig Discontinue Reason Start Date End Da te prednisoLONE acetate (PRED FORTE) 1 % ophthalmic suspension Administer 1 drop into the right eye 4 (four) times a day Reorder 05/12/2021 05/17/2021 documented as of this encounter Orders Outpatient Referral Count Last Ordered Date Fir st Ordered Date AMB REFERRAL TO OPHTHALMOLOGY 1 05/17/2021 documented in this encounter 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 Eye Exam Visual Acuity (Snellen - Linear) Right eye Left eye Dist sc 20/150 CF @ 2' Dist ph sc 20/80 Tonometry (Tonopen, 1:19 PM) Right eye Left eye Pressure 9 17 Pupils Dark Light Shape React APD Right eye 1 Round Minimal None Left eye 5 4.5 Round Minimal None Neuro/Psych Oriented x3: Yes Mood/Affect: Normal External Exam Right eye Left eye External edema Slit Lamp Exam Right eye Left eye Lids/Lashes edema Conjunctiva/Sclera injection, ROSA MARIA nasally Cornea trace edema with muc h less d-folds centrally, endo chatter with some fine cell dusting Anterior Chamber deep, 2+ cell Iris round pupil, constricted Lens PCIOL Care Teams Engineering Writer Relationship Specialty Start Date End Date Kirt Lindsay DO PCP - General Internal Medicine 02/02/21 Josué Del Valle MD PhD Medical Oncologist/Instrumentation Supervisor Medical Oncology 08/26/19 documented as of this encounter
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
--- OUTSIDE RECORDS SUMMARY | 2024-11-22 11:00 | XMS_ITS | Encounter Summary ---
Author Organization [facility] Address [address] [place] [address] Phone Care Team Providers Care Drum Tender Name Role Phone Josué Del Valle MD PhD Unavailable [phone] Kirt Lindsay DO Primary Care Provider [phone] Reason for Visit * Reason Onset Date Comments medical clearance for Sx? 04/26/2021 Encounter Details Date Type Department Care Team (Late st Contact Info) Description 04/26/2021 Telephone [facility] Ophthalmology [address] [place], [place] [id number] Ravi Hughes MD [address] [id number] medical clearance for Sx? 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 OFFICE IS CLOSED. * Telephone Encounter - Sonia Vega - 05/03/2021 10:41 AM CDT [facility] called back needing to know if this pt needed an appt with them for medical clearance priorto his sx with Dr. Hughes on 05/12/2021. Tried to reach out but no answer. Best contact number for [facility] is [phone] * Telephone Encounter - Mateo Grider - 04/27/2021 11:41 AM CDT [facility] from Dr. Lindsay office requesting to know if pt needs medical clearance for his procedure with Dr. Hughes. [facility] [phone] * Telephone Encounter - Robinson Gilbert - 04/26/2021 11:21 AM CDT Received call from [facility] at pt's PCP office Dr. Kirt Lindsay. Pt called w/ concerns re: COVID testing, and [facility] wants to make sure we don't need a note or medical clearance prior to procedurew/ Dr. Hughes. Please advise, . documented in this encounter Plan of Treatment Not on file documented as of this encounter Visit Diagnoses Not on filedocumented in this encounter 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 Care Teams Drum Tender Relationship Specialty Start Date End Date Kirt Lindsay DO PCP - General Internal Medicine 02/02/21 Josué Del Valle MD PhD Medical Oncologist/Asphalt Mixer Medical Oncology 08/26/19 documented as of this encounter
--- OUTSIDE RECORDS SUMMARY | 2024-11-22 11:00 | XMS_ITS | Encounter Summary ---
Author Organization [facility] Address [address] [place] [address] Phone Care Team Providers Care Supervisor Ore Dressing Name Role Phone Josué Del Valle MD PhD Unavailable [phone] Kirt Lindsay DO Primary Care Provider [phone] Reason for Visit * Reason Onset Date Comments Med Refill 06/19/2021 Encounter Details Date Type Department Care Team (Late st Contact Info) Description 06/19/2021 Telephone [facility] Ophthalmology [address] [place] [address] Ravi Hughes MD [address] [address] Med Refill Social History Tobacco Use Types Packs/Day Years Used Date Smoking Tobacco: Every Day Cigarettes 0.3 39 Started: 1984 Smokeless Tobacco: Never Comments:pt states tried to quit Sex and Gender Information Value Date Recorded Sex Assigned at Not on file Legal Sex Male 10:48 AM BIT SHAVER Gender Identity Not on file Sexual Orientation Not on file documented as of this encounter Miscellaneous Notes * Telephone Encounter - Henna Abad COA - 06/19/2021 3:58 PM CDT Called and LVM for patient. Per last note OK to stop ofloxacin (brown cap) and there is no mention of a gel being used or prescribed, asked patient for clarification * Telephone Encounter - Mellisa Carver - 06/19/2021 3:20 PM CDT Pt called saying he needs refill on the brown top drop sent to [facility] in [place] [phone] is checking if he should still be on the Gel at night. Pt call back [phone] documented in this encounter Plan of Treatment Not on file documented as of this encounter Visit Diagnoses Not on filedocumented in this encounter 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 Care Teams Supervisor Ore Dressing Relationship Specialty Start Date End Date Kirt Lindsay DO PCP - General Internal Medicine 02/02/21 Josué Del Valle MD PhD Medical Oncologist/Premium Representative Medical Oncology 08/26/19 documented as of this encounter
--- OUTSIDE RECORDS SUMMARY | 2024-11-22 11:00 | XMS_ITS | Encounter Summary ---
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) Zhgxd-gyayrw-fpsq disease (HCC) Procedures ONCBCN ARM DRAW APPT LAB ONLY Josué Del Valle MD PhD Phone: tel: fax: [facility] Oncology [address] 7th [place] [address] [place] [address] Phone: tel: Referral ID Status Reason Start Date Expiration Date Visits Requested Visits Authorized [id number] Canceled Specialty Services Required 06/05/2021 12/02/2021 12 12 Encounter Details Date Type Department Care Team (Late st Contact Info) Description 06/08/2021 9:00 AM CDT Lab [facility] Oncology [address] [facility] 7th [place] [address] [place] [address] 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); Djzlx-fpidmv-gjnh disease (HCC) Social History Tobacco Use Types Packs/Day Years Used Date Smoking Tobacco: Every Day Cigarettes 0.3 39 Started: 1985 Smokeless Tobacco: Never Comments:pt states tried to quit Sex and Gender Information Value Date Recorded Sex Assigned at Not on file Legal 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:48 AM FISHERIES 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 Gender Identity Not on file Sexual Orientation Not on file documented as of this encounter Plan of Treatment Not on file documented as of this encounter Procedures Procedure Name Priority Date/Time Associated Diagnosis Comments CYTOMEGALOVIRUS (CMV) DNA, QUANT GEN LAB Routine 06/08/2021 10:15 AM CDT 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) Mqhaq-ksxnax-nvqc disease (HCC) TACROLIMUS LEVEL, RANDOM Routine 06/08/2021 9:42 AM CDT 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) Tlfgj-mqiksx-bmtr disease (HCC) DIFFERENTIAL AUTO Routine 06/08/2021 9:3 7 AM CDT 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) Etnpw-pjfags-lncl disease (HCC) CBC WITH AUTO DIFFERENTIAL Routine 06/08/2021 9:37 AM CDT 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) Gxmkd-gwrfvd-wlex disease (HCC) URIC ACID Routine 06/08/2021 9:37 AM CDT 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) Jelqg-alqplm-pqnt disease (HCC) MAGNESIUM Routine 06/08/2021 9:37 AM CDT 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) Qyvru-smntvx-qzpp disease (HCC) LACTATE DEHYDROGENASE Routine 06/08/2021 9:37 AM CDT 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) Pnnyc-nrnfof-kxse disease (HCC) COMPREHENSIVE METABOLIC PANEL Routine 06/08/2021 9:37 AM CDT 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) Yibtj-asvxje-mpdj disease (HCC) documented in this encounter Results * Cytomegalovirus (CMV) DNA PCR, quantitative Blood (06/08/2021 10:15 AM CDT) [facility] CMV DNA Not Detected ZULEMA DENT Comment: Interpretive Data: The quantifiable range of this assay is 137 IUnits/mL to 9,100,000 IUnits/mL (2.14 log IUnits/mL to 6.96 log IUnits/mL). Testing was performed by the MICHEL AmpliPrep/MICHEL TaqMan CMV Test ([employer] Testing performed at [facility] Current interpretive data was last revised on 17. Blood specimen (specimen) 06/08/2021 10:15 AM CDT 06/08/2021 10:15 AM CDT Narcisa Kilgore NP LAB MICROBIOLOGY - GENERA L ORDERABLES Final Result ZULEMA DENT [facility] Department [place] [address] * Tacrolimus level random (06/08/2021 9:42 AM CDT) [facility] Tacrolimus random <1.0 ng/mL ZULEMA DENT Comment: Undetectable. ??Please verify that the correct [...] ??Current interpretive data last reviewed 2020. Blood specimen (specimen) 06/08/2021 9:42 AM CDT 06/08/2021 9:57 AM CDT us Narcisa Kilgore JALOUSIE INSTALLER LAB BLOOD ORDERABLES Pilar armas Result [facility] Department [place] [address] * Differential, auto (06/08/2021 9:37 AM CDT) Neutrophil abs 4.2 1.8 - 6.6 K/cumm CERNER BJ Comment:Testing performed by : [facility], [address] [place] [phone] Lymphocyte abs 3.0 1.2 - 3.3 K/cumm CERNER BJ Comment:Testing performed by : [facility], [address] [place] [phone] Monocyte abs 0.6 0.2 - 1.2 K/cumm CERNER BJ Comment:Testing performed by : [facility], [address] [place] [phone] Eosinophil abs 0.4 0.0 - 0.5 K/cumm CERNER BJ Comment:Testing performed by : [facility], [address] [place] [phone] Basophil abs 0.1 0.0 - 0.2 K/cumm CERNER BJ Comment:Testing performed by : [address] [phone] Neutrophil pct 50.5 % CERNER BJ Comment: Interpretive Data Percent cell count reference ranges are not reported, since discordance with absolute values may lead to misinterpretation of CBC data. Current Interpretive Data was last revised on 2018. Testing performed by: [address] [phone] Lymphocyte pct 36.2 % CERNER BJ Comment: Interpretive Data Percent cell count reference ranges are not reported, since discordance with absolute values may lead to misinterpretation of CBC data. Current Interpretive Data was last revised on 2018. Testing performed by: [facility], [address] [place] [phone] Monocyte pct 7.6 % ZULEMA DENT Comment:Testing performed by : [facility], [address] [place] [phone] Eosinophil pct 4.4 % CERAVTAR BJ Comment:Testing performed by : [facility], [address] [place] [phone] Basophil pct 1.3 % ZULEMA BJ Comment:Testing performed by : [facility], [address] [place] [phone] Blood specimen (specimen) 06/08/2021 9:37 AM CDT 06/08/2021 9:39 AM CDT Narcisa Kilgore JALOUSIE INSTALLER LAB BLOOD ORDERABLES Pilar armas Result Performing Organization Address City/State/[facility] Co de Phone Number ZULEMA [facility] Department [place] [address] * (ABNORMAL) CBC with auto differential (06/08/2021 9:37 AM CDT) WBC 8.3 3.8 - 9.8 K/cumm ZULEMA DENT Comment:Testing performed by : [facility], [address] [place] [phone] Hgb 13.6(L) 13.8 - 17.2 g/dL ZULEMA DENT Comment:Testing performed by : [facility], [address] [place] [phone] Hct 40.0(L) 40.7 - 50.3 % ZULEMA DENT Comment:Testing performed by : [facility], [address] [place] [phone] Plt 321 140 - 440 K/cumm ZULEMA DENT Comment:Testing performed by : [address] [phone] MPV 7.7 6.8 - 10.4 fL ZULEMA DENT Comment:Testing performed by : [address] [phone] RBC 3.93(L) 4.50 - 5.70 M/cumm ZULEMA DENT Comment:Testing performed by : [facility], [address] [place] [phone] MCV 101.8(H) 80.0 - 97.6 fL ZULEMA DENT Comment:Testing performed by : [facility], [address] [place] [phone] MCH 34.7(H) 26.7 - 33.7 pg ZULEMA DENT Comment:Testing performed by : [facility], [address] [place] [phone] MCHC 34.1 32.7 - 35.5 g/dL ZULEMA DENT Comment:Testing performed by : [facility], [address] [place] [phone] RDW CV 13.8 11.8 - 14.6 % ZULEMA DENT Comment:Testing performed by : [facility], [address] [place] [phone] NRBC abs 0.00 0.00 - 0.01 K/cumm ZULEMA DENT Comment:Testing performed by : [facility], [address] [place] [phone] Blood specimen (specimen) 06/08/2021 9:37 AM CDT 06/08/2021 9:39 AM CDT us Narcisa Kilgore JALOUSIE INSTALLER LAB BLOOD ORDERABLES Pilar armas Result ZULEMA DENT [facility] Department [place] [address] * (ABNORMAL) Comprehensive metabolic panel (06/08/2021 9:37 AM CDT) Sodium 138 135 - 145 mmol/L ZULEMA DENT Comment:Testing performed by : [facility], [address] [place] [phone] Potassium, pl 4.6 3.3 - 4.9 mmol/L ZULEMA DENT Comment:Testing performed by : [address] [phone] Chloride 104 97 - 110 mmol/L ZULEMA SOMMERS Comment:Testing performed by : [facility], [address] [place] [phone] CO2 29 22 - 32 mmol/L CERNER BJ Comment:Testing performed by : [facility], [address] [place] [phone] Anion gap 5 2 - 15 mmol/L CERNER BJ Comment:Testing performed by : [facility], [address] [place] [phone] BUN 14 8 - 25 mg/dL CERNER BJ Comment:Testing performed by : [facility], [address] [place] [phone] Creatinine 0.85 0.80 - 1.30 mg/dL CERNER BJ Comment:Testing performed by : [facility], [address] [place] [phone] Glucose 204(H) 70 - 199 mg/dL CERNER BJ Comment: [...] was last revised 2017. Testing performed by: [facility], [address] [place] [phone] Calcium 9.7 8.5 - 10.3 mg/dL CERNER BJ Comment:Testing performed by : [facility], [address] [place] [phone] Bilirubin, total 0.5 0.1 - 1.2 mg/dL CERNER BJ Comment:Testing performed by : [facility], [address] [place] [phone] Protein, pl 7.6 6.5 - 8.5 g/dL CERNER BJ Comment:Testing performed by : [facility], [address] [place] [phone] Albumin 4.1 3.5 - 5.0 g/dL [facility]ULEMA [facility] Comment:Testing performed by : [facility], [address] [place] [phone] Alk phos 195(H) 40 - 130 Units/L ZULEMA [facility] Comment:Testing performed by : [facility], [address] [place] [phone] ALT 16 7 - 55 Units/L ZULEMA [facility] Comment:Testing performed by : [facility], [address] [place] [phone] AST 15 10 - 50 Units/L ZULEMA [facility] Comment:Testing performed by : [facility], [address] [place] [phone] Blood specimen (specimen) 06/08/2021 9:37 AM CDT 06/08/2021 9:39 AM CDT Narcisa Kilgore JALOUSIE INSTALLER LAB BLOOD ORDERABLES Pilar l Result Performing Organization Address City/[facility]/ZIP Co de Phone Number [facility] [place] [employer] [place] [address] * Lactate dehydrogenase (LD) (06/08/2021 9:37 AM CDT) Pathologist [facility] Lactate dehydrogenase (LDH) 142 100 - 250 Units/L [facility] Comment:Testing performed by : [facility], [address] [place] [phone] Blood specimen (specimen) 06/08/2021 9:37 AM CDT 06/08/2021 9:39 AM CDT Narcisa Kilgore JALOUSIE INSTALLER LAB BLOOD ORDERABLES Pilar l Result Performing Organization Address City/[facility]/[place] [address] * Magnesium (06/08/2021 9:37 AM CDT) Magnesium 1.5 1.4 - 2.5 mg/dL ZULEMA [facility] Comment:Testing performed by : [facility], [address] [place] [phone] Blood specimen (specimen) 06/08/2021 9:37 AM CDT 06/08/2021 9:39 AM CDT Narcisa Kilgore JALOUSIE INSTALLER LAB BLOOD ORDERABLES Pilar l Result Performing Organization Address [facility] Co de Phone Number [facility] Department [place] [address] * Uric acid (06/08/2021 9:37 AM CDT) Uric acid 4.9 3.0 - 8.0 mg/dL [facility] Comment:Testing performed by : [facility], [address] [place] [phone] Blood specimen (specimen) 06/08/2021 9:37 AM CDT 06/08/2021 9:39 AM CDT Narcisa Kilgore JALOUSIE INSTALLER LAB BLOOD ORDERABLES Pilar l Result Performing Organization Address [facility] de Phone Number [facility] Department [place] [address] documented in this encounter Visit Diagnoses Diagnosis 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
--- OUTSIDE RECORDS SUMMARY | 2024-11-22 11:00 | XMS_ITS | Encounter Summary ---
Author Organization [facility] Address [address] [facility] [address] [place] [address] Phone Care Team Providers Care Water Project Engineer Name Role Phone Josué Del Valle MD PhD Unavailable [phone] Kirt Lindsay DO Primary Care Provider [phone] Reason for Visit * Consultation (Routine) - Closed Specialty Diagnoses / Procedures Referred By Controberta anderson Referred To Contact Ophthalmology Diagnoses Combined form of senile cataract of both eyes Kirt Lindsay DO Phone: tel: fax: Ravi Hughes MD [address] [place] [address] Phone: tel: fax: Referral ID Status Reason Start Date Expiration Date V isits Requested Visits Authorized [id number] Closed Specialty Services Required 05/02/2021 10/29/2021 6 6 Encounter Details Date Type Department Care Team (Late st Contact Info) Description 06/14/2021 10:45 AM CDT Office Visit [facility] Ophthalmology [facility] 6th [place] [address] Ravi Hughes MD [address] [facility] [address] [place] [address] s/p CE/PCIOL OD 05/12/21 (Primary Dx); Rbssp-mdrzja-wlya disease (HCC) Social History Tobacco Use Types Packs/Day Years Used Date Smoking Tobacco: Every Day Cigarettes 0.3 39 Started: 1985 Smokeless Tobacco: Never Comments:pt states tried to quit Sex and Gender Information Value Date Recorded Sex Assigned at Not on file 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 (History) Assessment/Plan Diagnoses and all orders for this visit: s/p CE/PCIOL OD 05/12/21 (Primary) Assessment & Plan: POM#1 status post (s/p) cataract extraction (CE)/IOL right eye (OD) 05/12/21 TODAY: -Doing well, BCVA much improved 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 -Overall looks quiet Plan: -Ok to stop Ofloxacin -Start pred forte (PF) BID for two weeks in OD -Consider cataract extraction (CE)/IOL left eye in near future Cxioq-askpzk-akqj disease (CMS/HCC) Assessment & Plan: Hx GVHD without current disease activitiy TODAY: -Exam quiet, no new disease activity Plan: -Continue Cellcept 500 BID and tacrolimus 0.5 mg daily I was present with the resident or fellow during the history and exam. I discussed this patient with the staff physician and agree with the findings and plan as documented in the staff physician's note. I have made corrections and additions as appropriate. Willam Hughes MD documented in this encounter Miscellaneous Notes * Assessment & Plan Note - Betty Gonzales MD - 06/14/2021 11:36 AM CDTAssociated Problem(s): Assac-qxlzyx-mwur disease (HCC) Hx GVHD without current disease activitiy TODAY: -Exam quiet, no new disease activity Plan: -Continue Cellcept 500 BID and tacrolimus 0.5 mg daily * Assessment & Plan Note - Betty Gonzales MD - 06/14/2021 11:35 AM CDTAssociated Problem(s): s/p CE/PCIOL OD 05/12/21 POM#1 status post (s/p) cataract extraction (CE)/IOL right eye (OD) 05/12/21 TODAY: -Doing well, BCVA much improved 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 -Overall looks quiet Plan: -Ok to stop Ofloxacin -Start pred forte (PF) taper TIDx 1 week, BID x 1 week, daily x 1week, then stop -Consider cataract extraction (CE)/IOL left eye in near future documented in this encounter Plan of Treatment Not on file documented as of this encounter Visit Diagnoses Diagnosis s/p CE/PCIOL OD 05/12/21- Primary Oatxm-ymonej-azra disease (HCC) documented in this encounter Discontinued Medications Medication Sig Discontinue Reason Start Date End Da te ofloxacin (OCUFLOX) 0.3 % ophthalmic solution Administer 1 drop into the right eye 4 (four) times a day Dose adjustment 05/12/2021 06/14/2021 documented as of this encounter Historical Medications * This list may reflect changes made after this encounter. 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 Eye Exam Visual Acuity (Snellen - Linear) Right eye Left eye Dist sc 20/50 -1 CF@2' Dist ph sc 20/40 Tonometry (Applanation, 11:29 AM) Right eye Left eye Pressure 10 13 Pupils Dark Light Shape React APD Right eye 2.5 2.0 Round Minimal None Left eye 5.0 4.0 Round Brisk None Neuro/Psych Oriented x3: Yes Mood/Affect: Normal External Exam Right eye Left eye External edema Slit Lamp Exam Right eye Left eye Lids/Lashes Normal Normal Conjunctiva/Sclera White and quiet White and yaniv et Cornea Clear, CCI Clear Anterior Chamber tr+ cell Deep and quiet Iris Round and reactive Round and josé ctive Lens Clear 2-3+ brunescent NS Manifest Refraction Sphere Right eye NI Left eye Care Teams Water Project Engineer Relationship Specialty Start Date End Date Kirt Lindsay DO PCP - General Internal Medicine 02/02/21 Josué Del Valle MD PhD Medical Oncologist/Firer Tunnel Kiln Medical Oncology 08/26/19 documented as of this encounter
--- OUTSIDE RECORDS SUMMARY | 2024-11-22 11:00 | XMS_ITS | Encounter Summary ---
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 assisted living/residential facility, longterm, residential)?: No Have you tested positive for COVID-19 [...] 20 seconds. Use an alcohol- based hand consulting technical director that contains at least 60% alcohol if soap and water are not available. ADDITIONAL COMMENTS/ FOLLOW UP * Pre-Procedure Instructions - Anaid Ley RN - 05/06/2021 9:52 AM CDT PRE-SURGICAL INSTRUCTIONS ??? General Information [...] insurance card, a photo ID (like a Land Management Forester's license) and a method of payment for [...] or department store or come by our [facility] clinic and we will give it to [...] PLAN COVID TEST not indicated related to COVID Vaccination status criteria met based on current [facility] Pre-Procedure COVID 19 Testing Update for Fully Vaccinated Patients. COVID Vaccination verified via COVID Vaccination Record Card or state registry. Maintain a 6 foot distance from other people (social distancing). Avoid touching your eyes, nose and mouth with unwashed hands. Wash your hands often with soap and water for at least 20 seconds. Use an alcohol-based hand consulting technical director that contains at least 60% alcohol if soap and water are not available. All patients should read below section: All visitors/patients are being asked to wear a clean mask when entering the hospital. COVID 19 Updates & Visitor Policy: Please access [email or web address] for the most updated information. Information on [facility]: Please view [email or web address] (Patient & Visitor Information) for additional details regarding Advanced Directive forms, [place], directions, parking information, lodging, Internet access, dining and more. For MyChart information, to activate account or password recovery, please go to [email or web address] or call [phone] (toll-free: [phone]). Surgery Times: For patients having surgery @ [facility], [facility] or [facility], if your surgeon's office has not notified you of your surgery time by NOON THE BUSINESS DAY BEFORE your surgery, please call [phone] and ask for your surgeon'soffice Dr Anais Hughes documented in this encounter Plan of Treatment Not on file documented as of this encounter Procedures Procedure Name Priority Date/Time Associated Diagnosis Comments EXTRACTION CATARACT - PHACOEMULSIFICATION AND LENS IMPLANT 05/12/2021 7:31 AM CDT Combined forms of age-related cataract of right eye POCT GLUCOSE DEVICE Routine 05/12/2021 6 :05 AM CDT documented in this encounter Results * (ABNORMAL) POCT glucose (05/12/2021 6:05 AM CDT) Glucose, POC 206(H) 70 - 199 mg/dL ZULEMA DENT Blood specimen (specimen) 05/12/2021 6:05 AM CDT 05/12/2021 6:05 AM CDT us Ravi Hughes MD LAB POCT ORDERABLES - DEVICE F inal Result [facility] Department [place] [address] documented in this encounter Visit Diagnoses Diagnosis Combined forms of age-related cataract of right eye- Primary documented in this encounter Admitting Diagnoses Diagnosis Combined forms of age-related cataract of right eye documented in this encounter Administered Medications Inactive Administered Medications - up to 3 most recent administrations Medication Order MAR Action Action Date Dose Rate Site dilating cocktail ophthalmic solution 0.3 mL 0.3 mL, right eye, Every 15 min, First dose on Sat05/12/21 at 0630, For 2 doses, Pre-Op, After each dose, have patient close eye and secure with paper tape. Ingredients per 0.3 mL Lidocaine 2% jelly 0.214 mL Phenylephrine 10% ophth drops 0.021 mL Cyclopentolate 1% ophth drops 0.021 mL Tropicamide 1% ophth drops 0.021 mL Ketorolac 0.5% ophth drops 0.021 mL, Indications: Mydriasis During Ocular SurgeryIndications:Mydriasis During Ocular Surgery Given 05/12/2021 6:12 AM CDT 0.3 mL Given 05/12/2021 5:55 AM CDT 0.3 mL Lactated Ringer's (LR) infusion 30 mL/hr, intravenous, Continuous, Starting on Sat05/12/21 at 0630 Restarted 05/12/2021 8:13 AM CDT Rate/Dose Verify 05/12/2021 7:26 AM CDT 30 mL/h r New Bag 05/12/2021 5:55 AM CDT 30 mL/hr 30 mL/hr sodium chloride 0.9% flush 0.5-20 mL 0.5-20 mL, intra-catheter, As needed, line care, Starting on Sat05/12/21 at 0549, Pre-Op, Flush volume based on line type and size. Flush before and after each use. sodium chloride 0.9% flush 0.5-20 mL 0.5-20 mL, intra-catheter, Every 8 hours scheduled, First dose on Sat05/12/21 at 0630, Pre-Op, Flush volume based on line type and size. sodium chloride 0.9% flush 0.5-20 mL 0.5-20 mL, intra-catheter, As needed, line care, Starting on Sat05/12/21 at 0549, Pre-Op, Flush volume based on line type and size. Flush before and after each use. documented in this encounter Discontinued Medications Medication Sig Discontinue Reason Start Date End Da te azithromycin (ZITHROMAX) 250 mg tabletIndications:Cough, Wvdri-uzkbpf-rxlx disease (HCC) Take 1 tablet (250 mg total) by mouth daily 2 tablets day 1, then 1 tablet daily x 4. Therapy completed 11/23/2020 05/06/2021 blood-glucose transmitter (Dexcom G6 Transmitter) deviceIndications:Type 2 diabetes mellitus with hyperosmolarity 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, with long-term current use of insulin ([facility]) FOR TESTING BLOOD SUGAR 4 TIMES/DAY Therapy completed 01/18/2020 05/06/2021 blood-glucose sensor (Dexcom G6 Sensor) deviceIndications:Type 2 diabetes mellitus with hyperosmolarity 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, with long-term current use of insulin ([facility]) TO CHECK BLOOD SUGARS 4 TIMES/DAY Therapy completed 01/18/2020 05/06/2021 sulfamethoxazole-trimeth oprim (BACTRIM DS) 800-160 mg per tabletIndications:Pneumo cystis/Toxoplasmosis Prophylaxis Take 1 tablet (160 mg of trimethoprim total) by mouth 2 (two) times a day On Saturday and Therapy completed 01/15/2020 05/06/2021 voriCONAZOLE (VFEND) 200 mg tabletIndications:Prophy laxis, Medical Take 1 tablet (200 mg total) by mouth 2 (two) times a day Therapy completed 03/22/2021 05/12/2021 documented as of this encounter Historical Medications * This list may reflect changes made after this encounter. oxygen Administer 2 L/min into each nostril nightly Nightly and PRN added in this encounter Active and Recently Administered Medications Times are shown in CDT. Scheduled Medication Order 05/10/2021 05/11/2021 05/12/2021 dilating cocktail ophthalmic solution 0.3 mL (COMPLETED) 0.3 mL, right eye, Every 15 min, First dose on Sat05/12/21 at 0630, For 2 doses, Pre-Op, After each dose, have patient close eye and secure with paper tape. Ingredients per 0.3 mL Lidocaine 2% jelly 0.214 mL Phenylephrine 10% ophth drops 0.021 mL Cyclopentolate 1% ophth drops 0.021 mL Tropicamide 1% ophth drops 0.021 mL Ketorolac 0.5% ophth drops 0.021 mL, Indications: Mydriasis During Ocular Surgery 0555 (Given - Provid er: Reina Gonzalez RN)0612 (Given - Provider: Reina Gonzalez RN) sodium chloride 0.9% flush 0.5-20 mL(Linked Group 1) 0.5-20 mL, intra-catheter, Every 8 hours scheduled, First dose on Sat05/12/21 at 0630, Pre-Op, Flush volume based on line type and size. 0630 (Due) Continuous Medication Order 05/10/2021 05/11/2021 05/12/2021 Lactated Ringer's (LR) infusion 30 mL/hr, intravenous, Continuous, Starting on Sat05/12/21 at 0630 0555 (New Bag - Prov ider: Reina Gonzalez RN)0726 (Rate/Dose Verify - Provider: Paola Bishop NP)0812 (Paused - Provider: Kim Kunz CRNA - Comment: Switch to gravity)0813 (Restarted - Provider: Kim Kunz CRNA) PRN Medication Order 05/10/2021 05/11/2021 05/12/2021 acetaminophen (TYLENOL) tablet 1,000 mg 1,000 mg, oral, Once as needed, 1st line for pain, Starting on Sat05/12/21 at 0832, For 1 dose, Phase I balanced salt soln no.2 irrig. (BSS) intraocular solution (CANCELED) As needed, Starting on Sat05/12/21 at 0749, Intra-Op 0749 (Given - Provid er: Ravi Hughes MD) BSS-EPINEPHrine 0.3 mg preservative free intraocular solution (total volume 500 mL) (CANCELED) As needed, Starting on Sat05/12/21 at 0749, Intra-Op 0749 (Given - Provid er: Ravi Hughes MD) carbachoL (MIOSTAT) 0.01 % intraocular solution (CANCELED) As needed, Starting on Sat05/12/21 at 0749, Intra-Op, Indications: Miosis Induction During Ocular Surgery 0749 (Given - Provid er: Ravi Hughes MD) dexAMETHasone (DECADRON) 4 mg/mL injection (CANCELED) Administer over 2 Minutes, As needed, Starting on Sat05/12/21 at 0749, Intra-Op 0749 (Given - Provid er: Ravi Hughes MD) lidocaine 1%, bupivicaine 0.375%, hyaluronidase 75 units preservative free ophthalmic solution (total volume 5 mL) (CANCELED) As needed, Starting on Sat05/12/21 at 0750, Intra-Op 0750 (Given - Provid er: Ravi Hughes MD - Comment: retrobulbar) neomycin-polymyxin B-dexAMETHasone (MAXITROL) ophthalmic ointment (CANCELED) As needed, Starting on Sat05/12/21 at 0750, Intra-Op 0750 (Given - Provid er: Ravi Hughes MD) sodium chloride 0.9% flush 0.5-20 mL 0.5-20 mL, intra-catheter, As needed, line care, Starting on Sat05/12/21 at 0549, Pre-Op, Flush volume based on line type and size. Flush before and after each use. sodium chloride 0.9% flush 0.5-20 mL(Linked Group 1) 0.5-20 mL, intra-catheter, As needed, line care, Starting on Sat05/12/21 at 0549, Pre-Op, Flush volume based on line type and size. Flush before and after each use. trypan blue (VISIONBLUE) 0.06 % intraocular solution (CANCELED) As needed, Starting on Sat05/12/21 at 0750, Intra-Op, Indications: Cataract Surgery Adjunct to Enhance Visualization 0750 (Given - Provid er: Ravi Hughes MD) Linked Groups Order Group 1: Saline lock IV (CANCELED) Routine, Once (Routine), On Sat05/12/21 at 0550, For 1 occurrence, Pre-Op And sodium chloride 0.9% flush 0.5-20 mLJump to med 0.5-20 mL, intra-catheter, Every 8 hours scheduled, First dose on Sat05/12/21 at 0630, Pre-Op, Flush volume based on line type and size. And sodium chloride 0.9% flush 0.5-20 mLJump to med 0.5-20 mL, intra-catheter, As needed, line care, Starting on Sat05/12/21 at 0549, Pre-Op, Flush volume based on line type and size. Flush before and after each use. documented in this encounter Orders Medications Ordered That Girma ht Not Have Been Administered Count Last Ordered Date First Ordered Date acetaminophen (TYLENOL) tablet 1,000 mg 1 0 05/12/2021 balanced salt soln no.2 irri g. (BSS) intraocular solution 1 05/12/2021 BSS-EPINEPHrine 0.3 mg prese rvative free intraocular solution (total volume 500 mL) 1 05/12/2021 carbachoL (MIOSTAT) 0.01 % i ntraocular solution 1 05/12/2021 dexAMETHasone (DECADRON) 4 mg/mL injection 1 05/12/2021 lidocaine 1%, bupivicaine 0. 

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
--- OUTSIDE RECORDS SUMMARY | 2024-11-22 11:00 | XMS_ITS | Encounter Summary ---
Author Organization [facility] Address [address] [place] [address] Phone Care Team Providers Care Safety Tech Name Role Phone Josué Del Valle MD PhD Unavailable [phone] Kirt Lindsay DO Primary Care Provider [phone] Encounter Details Date Type Department Care Team (Late st Contact Info) Description 07/28/2021 Telephone [facility] Ophthalmology [address] [facility] 6th [place] [address] Ravi Hughes MD [address] [place] [address] 6 [place] [address] Social History Tobacco Use Types Packs/Day Years Used Date Smoking Tobacco: Every Day Cigarettes 0.3 39 Started: 1984 Smokeless Tobacco: Never Comments:pt states tried to quit AUDIT-C Answer Date Recorded Q1: How often do you have a drink containing alc ohol? Never 07/17/2021 Average Number of Drinks Not on file 021 Q3: How often do you have si x or more drinks on one occasion? Never 07/17/2021 Sex and Gender Information Value Date Recorded Sex Assigned at Not on file Legal Sex Male 10:48 AM BUYER BROKER Gender Identity Not on file Sexual Orientation Not on file documented as of this encounter Miscellaneous Notes * Telephone Encounter - Theresa Adler - 07/28/2021 8:22 AM CDT LVM. SURGERY ARRIVAL TIME 5:45AM. NPO AFTER MIDNITE ON Saturday. [facility] [place] [facility]. documented in this encounter Plan of Treatment Not on file documented as of this encounter Visit Diagnoses Not on filedocumented in this encounter Care Teams Safety Tech Relationship Specialty Start Date End Date Kirt Lindsay DO PCP - General Internal Medicine 02/02/21 Josué Del Valle MD PhD Medical Oncologist/Air Traffic Coordinator Medical Oncology 08/26/19 documented as of this encounter
--- OUTSIDE RECORDS SUMMARY | 2024-11-22 11:00 | XMS_ITS | Encounter Summary ---
Author Organization [facility] Address [address] [place] [address] Phone Care Team Providers Care Industrial/Organizational Psychologist Name Role Phone Josué Del Valle MD PhD Unavailable [phone] Kirt Lindsay DO Primary Care Provider [phone] Encounter Details Date Type Department Care Team (Late st Contact Info) Description 03/13/[address] [facility] Ophthalmology [address] [facility] 6th [place] [address] Ravi Hughes MD [address] [place] [address] [address] [place] [address] Social History Tobacco Use Types Packs/Day Years Used Date Smoking Tobacco: Every Day Smokeless Tobacco: Never Comments:Pt not interested i n smoking cessation program Sex and Gender Information Value Date Recorded Sex Assigned at Not on file Legal Sex Male 10:48 AM OFFICE ADMIN Gender Identity Not on file Sexual Orientation Not on file documented as of this encounter Miscellaneous Notes * Telephone Encounter - Theresa Adler - 03/13/2021 11:38 AM CDT LVM FOR PT TO CALL BACK TO SCHEDULE SURGERY. documented in this encounter Plan of Treatment Not on file documented as of this encounter Visit Diagnoses Not on filedocumented in this encounter 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 Care Teams Industrial/Organizational Psychologist Relationship Specialty Start Date End Date Kirt Lindsay DO PCP - General Internal Medicine 02/02/21 Josué Del Valle MD PhD Medical Oncologist/Activities Aide Medical Oncology 08/26/19 documented as of this encounter
--- OUTSIDE RECORDS SUMMARY | 2024-11-22 11:00 | XMS_ITS | Encounter Summary ---
Author Organization [facility] Address [address] [place] [address] Phone Care Team Providers Care Mechanical Striper Name Role Phone Josué Del Valle MD PhD Unavailable [phone] Kirt Lindsay DO Primary Care Provider [phone] Encounter Details Date Type Department Care Team (Late st Contact Info) Description 05/24/2021 Orders Only [facility] Bone Marrow Transplant [address] [facility] 7th [address], [place] [address] Silva Mortensen RMA 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); Shiax-akbinw-tumo disease (CMS/HCC); 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CMS/[facility]) Social History Tobacco Use Types Packs/Day Years Used Date Smoking Tobacco: Every Day Cigarettes 0.3 39 Started: 1984 Smokeless Tobacco: Never Sex and Gender Information Value Date Recorded Sex Assigned at Not on file Legal Sex Male 10:48 AM WINDOWS APPLICATION ADMINISTRATOR Gender Identity Not on file Sexual Orientation Not on file documented as of this encounter Ordered Prescriptions Prescription Sig Dispense Quantity Refills Last Filled Start Date End Date Terrie Fung 100-62.5-25 mcg inhalerIndications :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),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),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HCC) Inhale 1 puff daily 60 each 05/24/2021 07/17/2021 documented in this encounter Plan of Treatment Not on file documented as of this encounter Visit Diagnoses Diagnosis 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) Zawub-cvbvus-jiyu disease (HCC) 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HCC) documented in this encounter 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 Care Teams Mechanical Striper Relationship Specialty Start Date End Date Kirt Lindsay DO PCP - General Internal Medicine 02/02/21 Josué Del Valle MD PhD Medical Oncologist/Pipe Stem Repairer Medical Oncology 08/26/19 documented as of this encounter
--- OUTSIDE RECORDS SUMMARY | 2024-11-22 11:00 | XMS_ITS | Encounter Summary ---
Author Organization [facility] Address [address] [place] [address] Phone Care Team Providers Care Washer Blanket Name Role Phone Josué Del Valle MD PhD Unavailable [phone] Kirt Lindsay DO Primary Care Provider [phone] Reason for Visit * Oncology (Routine) - Closed Specialty Diagnoses / Procedures Referred By Contac t Referred To Contact Medical Oncology / Blood and Marrow Transplant Diagnoses 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) [facility] Scheduling [address] [place] [address] Phone: tel: Josué Del Valle MD PhD [address] IM BONE MARROW TRANSPLANT, [address] [place] [address] Phone: tel: fax: Referral ID Status Reason Start Date Expiration Date V isits Requested Visits Authorized [id number] Closed Specialty Services Required 06/05/2021 11/17/2023 99 99 Encounter Details Date Type Department Care Team (Late st Contact Info) Description 06/08/2021 9:50 AM CDT Office Visit [facility] Bone Marrow Transplant [address] [facility] 7th Floor, [place] [id number] Josué Del Valle MD PhD [address] IM BONE MARROW TRANSPLANT, [address] [place] [address] 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) (Primary Dx) Social History Tobacco Use Types Packs/Day Years Used Date Smoking Tobacco: Every Day Cigarettes 0.3 39 Started: 1985 Smokeless Tobacco: Never Tobacco Cessation:Ready to Q uit: Yes; Counseling Given: Yes Comments:pt states tried to quit Sex and Gender Information Value Date Recorded Sex Assigned at Not on file 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 Gender Identity Not on file Sexual Orientation Not on file documented as of this encounter Last Filed Vital Signs Vital Sign Reading Time Taken Comments Blood Pressure 115/67 06/08/2021 9:45 AM CDT Pulse 56 06/08/2021 9:45 AM CDT Temperature 36.3 ??C (97.3 ??F) 06/08/2021 9:45 AM CD T Respiratory Rate 20 06/08/2021 9:45 AM CDT Oxygen Saturation 97% 06/08/2021 9:45 AM CDT Inhaled Oxygen Concentration - - Weight 64 kg (141 lb) 06/08/2021 9:45 AM CDT Height - - Body Mass Index 20.23 05/06/2021 9:35 AM CDT documented in this encounter Progress Notes * Josué Del Valle MD PhD - 06/08/2021 12:00 AM CDT PATIENT NAME: BRI JONES : 1965 ROSY: 06/08/2021 DIAGNOSIS: 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 TREATMENT HISTORY: 1. Induction with 7+3 and HiDAC consolidation x3. 2. Decitabine maintenance on the CAL[facility] 63365 protocol. 3. Relapsed disease, status post AMD/[facility]. 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 TRANSPLANT HISTORY: Status post an allogeneic transplant with busulfan and Cytoxan on the [facility] allogeneic study with hissister, 08/27 match; with day 0 on 11/09/2009. INTERIM HISTORY: Bri carries a diagnosis of AML. He is status post a sibling allogeneic stem cell transplant in 2009, twelve years ago. 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 He is also a very heavy smoker and he continues to smoke unabated in spite of multiple infections and recommendations that he stop. He is vaccinated for COVID, however. He is also status post cataract replacement on the right with a dramatic improvement in his vision, and he is scheduled to have his second cataract replaced on the left in 3 to 4 weeks. MEDICATIONS: Full medication review with patient. See Epic/Plan for complete list of medications. REVIEW OF SYSTEMS: Twelve-point systems reviewed and positive as above in Interval History. All other systems negative. PHYSICAL EXAMINATION: General: A well-appearing male, much better appearing than ever before in the last several years. Vital Signs: Blood pressure 115/67. Weight 64 kg, up 3 kg from his last visit. HEENT: Obviously opaque-appearing cataract on the left and a clear cataract replacement on the right. Neck: Supple without lymphadenopathy. Cardiac: S1 and S2. Regular rate without murmur or gallop. Lungs: Clear to auscultation bilaterally. Abdomen: Soft, nontender, and nondistended with positive bowel sounds. No hepatosplenomegaly. Extremities: Lower extremities without edema. Palpable pulses. Skin: Unremarkable. Neurologic: Grossly intact. No neurological deficit. LABORATORY: Blood counts today reveal a white count of 8.3, hemoglobin 13.6, and platelet count of 321,000. IMPRESSION: 1. Acute myeloid leukemia. 2. Status post allogeneic stem cell transplant from matched sib 12 years ago. 3. Extensive chronic ugwjr-zsnhpe-bvlk disease. 4. Bilateral cataracts, with his right being recently replaced. He is overall doing remarkably well at the present time. ELECTRONICALLY SIGNED - 06/09/2021 12:28 PM Josué Del Valle M.D., Ph.D. Chief, Division of Oncology/ground water technician Section of BMT & Leukemia CHRISTOPHER/ps documented in this encounter Nursing Notes * Mellisa Rubalcava, BECKI - 06/08/2021 9:50 AM CDT 06/08/21 AML Treatment hx: 1. Induction with 7+3 and HiDAC consolidation x3. 2. Decitabine maintenance on the [facility] [address] protocol. 3. 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 Transplant: ??fully matched, related ALLO SCT from his sister, Bu/Cy, 11/09/2009 GVHD: MMF 1gm BID, tac 0.5mg every other day, weaned himself off pred 03/2018 - EAP Jakafi HRPO [id number], 5 mg BID ---pt stopped taking after he picked up Cycle 3 (so stopped approximately 01/2020) Hx PE, DVT LE 2012, and DVT IJ 2017 - remains on lifelong anticoag (xeralto) - VFend starded 11/22/[address] 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
--- OUTSIDE RECORDS SUMMARY | 2024-11-22 11:00 | XMS_ITS | Encounter Summary ---
Author Organization [facility] Address [address] [place] [address] Phone Care Team Providers Care Reject Opener Name Role Phone Josué Del Valle MD PhD Unavailable [phone] Kirt Lindsay DO Primary Care Provider [phone] Tay Charlton MD Unavailable [phone] Halie Khan MD Unavailable [phone] Ant Starks MD Unavailable [phone] Cal Carranza DO Unavailable [phone] Halie Khan MD Unavailable [phone] Wilfred Kinsey MD Unavailable Encounter Details Date Type Department Care Team (Late st Contact Info) Description 05/18/2021 Telephone [facility] Bone Marrow Transplant [address] [facility] Medicine 7th Floor, [place] [address] Melody Bolanos V. 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 Gender Identity Not on file Sexual Orientation Not on file documented as of this encounter Plan of Treatment Not on file documented as of this encounter Visit Diagnoses Not on filedocumented in this encounter Additional Health Concerns 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 September 06, 2011 11/26/2010 11/26/201006/18 5:00 AM CDT Exposure, COVID-19 Comment:Negative Added automatically based on COVID19 lab answers indicating exposure risk 08/17/2021 08/17/2021 09/01/2021 3:05 AM C DT COVID: Suspected 08/17/2021 08/17/2021 08/17/2021 2:17 PM CDT Rhino/Enterovirus Comment:Droplet - Rhino/Enterovirus 08/17/2021 08/17/2021 10/0 05/2021 3:06 AM CDT COVID: Suspected 02/22/2024 02/22/2024 02/22/2024 5:57 PM CDT COVID: Suspected 03/27/2024 03/27/2024 03/28/2024 12:07 AM CDT COVID: Suspected 06/15/2024 06/15/2024 06/15/2024 3:07 PM CDT Tuberculosis (rule out) Comment:06/18/2024 IP Review: case reviewed by [facility], ok to come off precautions. Lissy Johnson RN +AFB stain 06/17/2024 06/17/2024 06/18/2024 10:45 AM CDT C. 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 07/23/2024 07/24/2024 07/24/2024 4:49 AM CDT documented as of this encounter Care Teams Reject Opener Relationship Specialty Start Date End Date Kirt Lindsay DO PCP - General Internal Medicine 02/02/21 Josué Del Valle MD PhD Medical Oncologist/Transportation Aid Medical Oncology 08/26/19 Tay Charlton MD Consulting Physician Gastroenterology 12/03/21 06/11/23 Halie Khan MD [address] [facility] [address] [place] [address] Consulting Physician Pulmonary Disease 12/12/21 3 Ant Starks MD [address] [address] Consulting Physician Transplant Hepatology 01/12/22 Cal Carranza DO [address] [facility] [address] [place] [address] Enrollment Representative Internal Medicine 06/12/23 Halie Khan MD [address] [address] Multigrapher Critical Care Med 06/12/23 Wilfred Kinsey MD [address] [address] Consulting Physician Gastroenterology 03/02/24 documented as of this encounter
--- OUTSIDE RECORDS SUMMARY | 2024-11-22 11:00 | XMS_ITS | Encounter Summary ---
Author Organization [facility] Address [address] [place] [address] Phone Care Team Providers Care No Bake Molder Name Role Phone Josué Del Valle MD PhD Unavailable [phone] Kirt Lindsay DO Primary Care Provider [phone] Encounter Details Date Type Department Care Team (Late st Contact Info) Description 05/08/2021 Telephone [facility] Ophthalmology [facility] 6th [place] [address] Ravi Hughes MD [address] [place] [address] [address] [place] [address] Social History Tobacco Use Types Packs/Day Years Used Date Smoking Tobacco: Every Day Cigarettes 0.3 39 Started: 1984 Smokeless Tobacco: Never Sex and Gender Information Value Date Recorded Sex Assigned at Not on file 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 NEEDS TO STOP XARELTO 3 DAYS BEFORE SURGERY (, SAT, ). NPO AFTER MIDNITE ON , 5:45 AM ARRIVAL TIME ON Saturday AT THE [facility]. DAY 1 P OV 8:00AM ON Saturday AT [facility]. documented in this encounter Plan of Treatment Not on file documented as of this encounter Visit Diagnoses Not on filedocumented in this encounter 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 Care Teams No Bake Molder Relationship Specialty Start Date End Date Kirt Lindsay DO PCP - General Internal Medicine 02/02/21 Josué Del Valle MD PhD Medical Oncologist/Heater Engineer Helper Medical Oncology 08/26/19 documented as of this encounter
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
--- OUTSIDE RECORDS SUMMARY | 2024-11-22 11:01 | XMS_ITS | Encounter Summary ---
Author Organization [facility] Address [address] [place] [address] Phone Care Team Providers Care Fixture Builder Name Role Phone Josué Del Valle MD PhD Unavailable [phone] Kirt Lindsay DO Primary Care Provider [phone] Encounter Details Date Type Department Care Team (Late st Contact Info) Description 02/02/2021 Orders Only [facility] Oncology [address] [facility] Advanced Medicine 7th [place] [address] [place] [id number] Eneida Gibson MD [address] [place] [address] Vitamin D deficiency (Primary Dx); Osteopenia, unspecified location; Type 2 diabetes mellitus with hyperosmolarity without coma, with long-term current use of insulin ([facility]) Social History Tobacco Use Types Packs/Day Years Used Date Smoking Tobacco: Every Day Smokeless Tobacco: Never Comments:Pt not interested i n smoking cessation program Sex and Gender Information Value Date Recorded Sex Assigned at Not on file 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 ??Minority populations were underrepresented and children were not included. ?? (Diabetes Care 31:0174-2061, 2008). ??The eAG is not equivalent to a fasting glucose. Blood specimen (specimen) 02/03/2021 12:04 PM CDT 02/03/2021 12:23 PM CDT us Eneida Gibson MD LAB BLOOD ORDERABLES Final Resul t [facility] [place] [address] documented in this encounter Visit Diagnoses Diagnosis Vitamin D deficiency- Primary Osteopenia, unspecified location Type 2 diabetes mellitus with hyperosmolarity without coma, with long-term current use of insulin (HCC) documented in this encounter 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 Care Teams Fixture Builder Relationship Specialty Start Date End Date Kirt Lindsay DO PCP - General Internal Medicine 02/02/21 Josué Del Valle MD PhD Medical Oncologist/Mold Closer Medical Oncology 08/26/19 documented as of this encounter
--- OUTSIDE RECORDS SUMMARY | 2024-11-22 11:01 | XMS_ITS | Encounter Summary ---
Author Organization [facility] Address [address] [place] [address] Phone Care Team Providers Care Ecommerce Merchandising Manager Name Role Phone Josué Del Valle MD PhD Unavailable [phone] Kirt Lindsay DO Primary Care Provider [phone] Encounter Details Date Type Department Care Team (Late st Contact Info) Description 02/03/2021 11:20 AM CDT Office Visit [facility] Bone Marrow Transplant [address] 7th Floor, [place] [address] Narcisa Kilgore, ARMEN [address] DIV IM BONE MARROW TRANSPLANT, [address] [place], [place] [id number] 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); Ctoll-vyexkc-ooka disease (CMS/HCC) Social History Tobacco Use Types Packs/Day Years Used Date Smoking Tobacco: Every Day Smokeless Tobacco: Never Tobacco Cessation:Ready to Q uit: No; Counseling Given: No Comments:Pt not interested in smoking cessation program Sex and Gender Information Value Date Recorded Sex Assigned at Not on file Legal Sex 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 Gender Identity Not on file Sexual Orientation Not on file documented as of this encounter Last Filed Vital Signs Vital Sign Reading Time Taken Comments Blood Pressure 119/68 02/03/2021 11:37 AM CDT Pulse 75 02/03/2021 11:37 AM CDT Temperature 36.5 ??C (97.7 ??F) 02/03/2021 11:35 AM C DT Respiratory Rate 20 02/03/2021 11:35 AM CDT Oxygen Saturation 96% 02/03/2021 11:37 AM CDT Inhaled Oxygen Concentration - - Weight 68 kg (150 lb) 02/03/2021 11:35 AM CDT Height - - Body Mass Index 21.35 11/23/2020 9:26 AM TRAFFIC OPERATIONS ENGINEER documented in this encounter Patient Instructions * Patient Instructions* Narcisa Kilgore, GILL BOX TENDER - 02/03/2021 11:20 AM CDT Images from the original note were not included. Can also register on [facility] Website or [facility]. ? ?Cancer Patients & the COVID-19 Vaccine The U.S. Food and Drug Administration (FDA) has approved the use of two vaccines to help protect individuals from getting COVID-19, a highly contagious viral infection that is especially dangerous for people with weak or compromised immune systems, including cancer patients. These vaccines have been shown to be safe and effective, according to the federal Centers for Disease Control and Prevention (CDC), and the potential benefits of receiving a COVID-19 vaccine outweigh the known and potentialharms of becoming infected with the disease. While the COVID-19 vaccines are generally recommended for cancer patients, specific types of cancertreatment might affect when the vaccine should be received. This Q&A is intended to provide important information for cancer patients to consider. However, this document does not take the place of your oncologist, who is aware of the specifics of your case and treatment. We strongly recommend that patients discuss risks and benefits of the COVID-19 vaccine with their oncologist. The information below represents the current opinions of physicians at [facility] [place], [facility] and [facility] related to COVID-19 vaccines forcancer patients. Q: Why should I consider getting the COVID-19 vaccine? A: Cancer patients who get COVID-19 are at higher risk for complications, hospitalizations and evendeath compared to healthy people who get COVID-19. That's because cancer patients in active treatment can have a weakened immune system, which makes it harder to fight off diseases such as COVID-19. Based on the opinions of physicians and other experts at [facility], [facility] and [facility], we recommend that cancer patients who have completed their treatment get the vaccine. Cancer patients who have not completed their treatment should discuss risks and benefits with their oncologist. Q: What if I'm just about to start cancer treatment? A: The answer depends on when and how fast your cancer treatment needs to start. Your oncologist will help you make the right decision. Q: Should I get the vaccine if I'm in the middle of my cancer treatments? A: It depends on what type of cancer treatment you are receiving, which is why we strongly recommend talking with your oncologist. But, in general, these are our recommendations for patients undergoing: ??? Chemotherapy - We recommend that patients who are completing their chemotherapy in the next twoto three months delay getting their COVID-19 vaccination until treatment is completed. For those undergoing chemotherapy for a longer period, it might be beneficial to receive the COVID-19 vaccine in between rounds of chemotherapy. Talk to your oncologist about getting the first or second COVID-19 shot two weeks before a round of chemotherapy. ??? Radiation Therapy - You should be able to receive the COVID-19 vaccine at any time, but we recommend talking with your radiation oncologist first. ??? Bone Marrow/Stem Cell Transplant - We recommend that patients delay the COVID-19 vaccination until one to three months after transplant. We would postpone the COVID-19 vaccine for a longer periodof time if you are placed on steroids and experience a significant drop in immunosuppression. ??? Immunotherapy - We recommend that you talk with your oncologist about the timing for receiving the COVID-19 vaccine. ??? Chronic Oral Immunosuppressive Medication - If you are not on active treatment but still take chronic oral immunosuppressive drugs, we recommend that you get the COVID-19 vaccine. LEADERS Q: Do the COVID-19 vaccines contain a live virus? What should I know about live- virus vaccines? A: No. The two COVID-19 vaccines do not contain a live virus and do not interact with your DNA. We do not recommend that cancer patients receive any vaccine that has a live virus. Such live-virus vaccines include gmkexir-pvobl-plmoetg (MMR) and varicella (chickenpox) vaccines, as well as the nasal mist version of the flu vaccine. The standard flu shot does not contain live virus and is safe for cancer patients to receive. Q: How do I get the vaccine? A: [facility] and [facility] are working quickly to make the COVID-19 vaccine available to those who are eligible in accordance with federal and state guidelines. You may pre-register for the vaccine at [email or web address]. They will contact you when your eligibility window opens, and when vaccine supply and distribution capacity are available. It could be several weeks orlonger before you are able to schedule. [facility] and other health systems also have websites where you may pre-register. You may pre-register on multiple sites. We recommend that you accept the first opportunity providedto receive a vaccine - after you and your oncologist have discussed when you should receive it. Formore information, visit [email or web address]. Q: Should cancer patients who have recovered from COVID-19 receive the vaccine? A: The vaccine is recommended for such patients once they have recovered from COVID-19. For those who received convalescent plasma or monoclonal antibodies as part of their COVID-19 treatment, we recommend they wait for three months after receiving convalescent plasma or monoclonal antibodies before they receive the vaccination. Q: Should my family get the COVID-19 vaccine? A: Yes. We recommend that family members in good health get the vaccine when it is available to them. This will better protect you while you are in treatment. Q: If my child is being treated for cancer, can he or she get the COVID-19 vaccine? A: At this time, no COVID-19 vaccine is available for anyone younger than 16. Q: Should I wear a mask and socially distance after I receive the COVID-19 vaccine? A: Yes. No vaccine is 100 percent effective. Therefore, it is important to minimize your risk of getting COVID-19 as much as possible. We recommend that you and those you are in close contact with wear a mask in public, wash your hands frequently, sanitize touched surfaces and try to maintain a small ???bubble?? of family members that you see. COVID-19 Vaccine Line: [phone] - This line is an automated response and has 3 options: ; Option 1?- Automated message encouraging online registration, provide the web page above. ; Option 2?- Support for those without e-mail or Internet, routing to a manager customer service who can help the non-digital population register without going through the online registration form. Note that this department has limited staff, and hold times may be long.?It is currently available from8 a.m.-4 p.m., Saturday-Saturday. ; Option 3?- Nurses line that can answer questions about the vaccine itself ??? COVID-19 Vaccine Line: [phone] - This line is an automated response and has 3 options: ; Option 1?- Automated message encouraging online registration, provide the web page above. ; Option 2?- Support for those without e-mail or Internet, routing to a manager customer service who can help the non-digital population register without going through the online registration form. Note that this department has limited staff, and hold times may be long.?It is currently available from8 a.m.-4 p.m., Saturday-Saturday. ; Option 3?- Nurses line that can answer questions about the vaccine itself documented in this encounter Progress Notes * Narcisa Kilgore NP - 02/03/2021 11:20 AM CDT [facility] DEPARTMENT OF MEDICINE - SECTION OF BMT & LEUKEMIA [address] [place] [phone]- PHONE: FAX: PATIENT NAME: BRI JONES : 1965 ROSY: 02/03/2021 Patient has a history of AML. 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 TREATMENT HISTORY: 1. Induction with 7+3 and HiDAC consolidation x3. 2. Decitabine maintenance on the CALGB 30428 protocol. 3. 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 TRANSPLANT HISTORY: Status post an allogeneic transplant with busulfan and Cytoxan on the AMD allogeneic study with hissister, 08/27 match; with day 0 on 11/09/2009. INTERVAL HISTORY: Patient overall doing well. No f/c/cp/sob. No loss of taste no congestion. PHYSICAL EXAM: Vitals BP 119/68 Pulse 75 Temp 36.5 ??C (97.7 ??F) Resp 20 Wt 68 kg (150 lb) SpO2 96% BMI 21.35 kg/m?? General: He is alert and oriented [...] aredisplayed. Labs - Hematology Latest Ref Range 11/23/20 WBC 3.8 - 9.8 K/cumm 8.8 Total Hb, POC 13.8 - 17.2 g/dL 13.1 (A) Hct 40.7 - 50.3 % 38.5 (A) Plt 140 - 440 K/cumm 236 Neutrophil abs 1.8 - 6.6 K/cumm 2.8 Lymphocytes, abs 1.2 - 3.3 K/cumm 4.5 (A) (A) Abnormal value Comments are available for some flowsheets but are not being displayed. Chem/LFT Lab History Some values may be hidden. Unless noted otherwise, only the newest values recorded on each date aredisplayed. Labs-Chem/LFT Latest Ref Range 11/23/20 Sodium 135 - 145 mmol/L 138 Creatinine 0.80 - 1.30 mg/dL 0.83 Bilirubin, total 0.1 - 1.2 mg/dL 0.4 AST 10 - 50 Units/L 37 ALT 7 - 55 Units/L 30 CrCl- Actual Body Weight (Cockcroft-Gault) 101 Comments are available for some flowsheets but are not being displayed. MEDICATIONS: Current Outpatient Medications: ??? acyclovir (ZOVIRAX) 400 mg tablet, Take 1 tablet (400 mg total) by mouth every 8 (eight) hours,Disp: 270 tablet, Rfl: 1 ??? albuterol HFA (Ventolin HFA) 90 mcg/actuation inhaler, Inhale 1-2 puffs every 4 (four) hours asneeded for wheezing, Disp: 1 Inhaler, Rfl: 3 ??? atorvastatin (LIPITOR) 40 mg tablet, Take 1 tablet (40 mg total) by mouth daily, Disp: 30 tablet, Rfl: 6 ??? azithromycin (ZITHROMAX) 250 mg tablet, Take 1 tablet (250 mg total) by mouth daily 2 tablets day 1, then 1 tablet daily x 4., Disp: 6 tablet, Rfl: 0 ??? blood glucose diagnostic strip, Check blood sugar tid, Disp: 100 each, Rfl: 4 ??? blood-glucose meter misc, 1 Device 3 (three) times a day, Disp: 1 each, Rfl: 0 ??? blood-glucose sensor (Dexcom G6 Sensor) device, TO CHECK BLOOD SUGARS 4 TIMES/DAY, Disp: 1 Device, Rfl: 6 ??? blood-glucose transmitter (Dexcom G6 Transmitter) device, FOR TESTING BLOOD SUGAR 4 TIMES/DAY, Disp: 1 Device, Rfl: 0 ??? ergocalciferol (VITAMIN D) 50,000 unit capsule, Take 1 capsule (50,000 Units total) by mouth once a week, Disp: 12 capsule, Rfl: 3 ??? furosemide (LASIX) 20 mg tablet, Take 1 tablet (20 mg total) by mouth daily As needed., Disp: 30 tablet, Rfl: 0 ??? gabapentin (NEURONTIN) 300 mg capsule, Take 1 capsule (300 mg total) by mouth 3 (three) times aday TAKE 1 CAPSULE BY MOUTH FOUR TIMES DAILY, Disp: 90 capsule, Rfl: 3 ??? insulin glargine (LANTUS,BASAGLAR) 100 unit/mL (3 mL) insulin pen, INJECT 40 UNITS NIGHTLY SUB-Q., Disp: 5 pen, Rfl: 5 ??? insulin lispro (HumaLOG, ADMELOG) 100 unit/mL insulin pen, INJECT 20 UNITS TID WITH MEALS PLUS SLIDING SCALE. TDD OF 90 UNITS., Disp: 10 pen, Rfl: 6 ??? montelukast (SINGULAIR) 10 mg tablet, TAKE 1 TABLET BY MOUTH EVERY DAY, Disp: 90 tablet, Rfl: 0 ??? mycophenolate mofetil (CELLCEPT) 500 mg tablet, Take 2 tablets (1,000 mg total) by mouth 2 (two) times a day, Disp: 180 tablet, Rfl: 3 ??? ofloxacin (OCUFLOX) 0.3 % ophthalmic solution, Administer 1 drop into both eyes 2 (two) times aday, Disp: 5 mL, Rfl: 2 ??? sulfamethoxazole-trimethoprim (BACTRIM DS) 800-160 mg per tablet, Take 1 tablet (160 mg of trimethoprim total) by mouth 2 (two) times a day On Saturday and , Disp: 30 tablet, Rfl: 1 ??? tacrolimus (PROGRAF) 0.5 mg immediate-release capsule, Take 1 capsule (0.5 mg total) by mouth every other day, Disp: 15 capsule, Rfl: 3 ??? Trelegy Ellipta 100-62.5-25 mcg inhaler, Inhale 1 puff daily, Disp: 1 each, Rfl: 2 ??? voriCONAZOLE (VFEND) 200 mg tablet, Take 1 tablet (200 mg total) by mouth 2 (two) times a day, Disp: 60 tablet, Rfl: 6 ??? Xarelto 20 mg tablet, TAKE 1 TABLET(20 MG) BY MOUTH DAILY, Disp: 30 tablet, Rfl: 1 IMPRESSION/PLAN: 1. Patient with a history of acute myeloid leukemia post an allo transplant + 4104 days ago. 2. Chronic jyiex-larpsc-luxp disease. He Is off Jakafi stopped on his own. He completed cycle 1 and2. January 24 he didn't belt picker drug and MMF 1 g b.i.d., tacro 0.5 every other day, and he is weanedof Prednisone. 3. Infectious disease prophylaxis. He is on acyclovir 400 t.i.d., azithromycin 250 three times a week, Bactrim on Mondays and , and voriconazole 200 b.i.d (pulmonary toilet). 4. History of deep venous thrombosis and pulmonary embolus. DVT lower ext 2012, DVT IJ 2017, PE 02/02/2013. He is on Xarelto 20 mg a day. 5. Chronic obstructive pulmonary disease. He has Ventolin inhaler, Trelegy inhaler, albuterol inhaler, and Singulair 10 a day. 6. Diabetes. He is on Lantus which he was on 40 units at night that I upped to 45. He is on NPH from 15 and in the morning I upped him to 20 and is on the sliding scale with food and outside of food.Check hem aic, lipid panel, cd 4 and vit d today. Seeing Hickey today. 7. Neuropathy. He is on gabapentin 300 four times a day. 8. Congestive heart failure. He has Lasix 20 mg a day. He is scheduled to return to see back in 2 months. Narcisa Kilgore RN, FNP Nurse Practitioner In collaboration with Josué Del Valle M.D. documented in this encounter Plan of Treatment Not on file documented as of this encounter Results * Cytomegalovirus (CMV) DNA PCR, quantitative Blood (06/08/2021 10:15 AM CDT) [facility] CMV DNA Not Detected [facility] Comment: Interpretive Data: The quantifiable range of this assay is 137 IUnits/mL to 9,100,000 IUnits/mL (2.14 log IUnits/mL to 6.96 log IUnits/mL). Testing was performed by the [facility] AmpliPrep/MICHEL TaqMan CMV Test ([employer] Testing performed at [facility] Current interpretive data was last revised on 17. Blood specimen (specimen) 06/08/2021 10:15 AM CDT 06/08/2021 10:15 AM CDT Narcisa Kilgore NP LAB MICROBIOLOGY - GENERA L ORDERABLES Final Result [facility] [place] [address] * Tacrolimus level random (06/08/2021 9:42 AM CDT) Tacrolimus random <1.0 ng/mL [facility] Comment: Undetectable. ??Please verify that the correct immunosuppressant test was requested. Interpretive Data Testing performed by liquid chromatography-tandem mass spectrometry. ??Therapeutic concentrations vary depending on type of transplanted organ and time elapsed since transplant. ??Typical trough concentrations range from 5-15 ng/mL. ??This test was developed and its performance characteristics determined by the [facility] consistent with CLIA requirements. ??This test has not been cleared or approved by the [place] Food and Drug administration. ??Current interpretive data last reviewed 2020. Blood specimen (specimen) 06/08/2021 9:42 AM CDT 06/08/2021 9:57 AM CDT Narcisa Kilgore GILL BOX TENDER LAB BLOOD ORDERABLES Pilar l Result Performing Organization Address [facility] Co de Phone Number [facility] [place] [address] * Uric acid (06/08/2021 9:37 AM CDT) Pathologist [facility] Uric acid 4.9 3.0 - 8.0 mg/dL [facility] Comment:Testing performed by : [facility], [address] [place] [phone] Blood specimen (specimen) 06/08/2021 9:37 AM CDT 06/08/2021 9:39 AM CDT Narcisa Kilgore GILL BOX TENDER LAB BLOOD ORDERABLES Pilar l Result Performing Organization Address [facility] Co de Phone Number [facility] [place] [address] * Magnesium (06/08/2021 9:37 AM CDT) Pathologist [facility] Magnesium 1.5 1.4 - 2.5 mg/dL [facility] Comment:Testing performed by : [facility], [address] [place] [phone] Blood specimen (specimen) 06/08/2021 9:37 AM CDT 06/08/2021 9:39 AM CDT Narcisa Kilgore GILL BOX TENDER LAB BLOOD ORDERABLES Pilar l Result Performing Organization Address [facility] Co de Phone Number [facility] Department [place] [address] * Lactate dehydrogenase (LD) (06/08/2021 9:37 AM CDT) Lactate dehydrogenase (LDH) 142 100 - 250 Units/L [facility] Comment:Testing performed by : [facility], [address] [place] [phone] Blood specimen (specimen) 06/08/2021 9:37 AM CDT 06/08/2021 9:39 AM CDT Narcisa Kilgore GILL BOX TENDER LAB BLOOD ORDERABLES Pilar l Result Performing Organization Address [facility] de Phone Number [facility] [place] [address] * (ABNORMAL) Comprehensive metabolic panel (06/08/2021 9:37 AM CDT) Pathologist [facility] Sodium 138 135 - 145 mmol/L [facility] Comment:Testing performed by : [facility], [address] [place] [phone] Potassium, pl 4.6 3.3 - 4.9 mmol/L [facility] Comment:Testing performed by : [facility], [address] [place] [phone] Chloride 104 97 - 110 mmol/L [facility] Comment:Testing performed by : [facility], [address] [place] [phone] CO2 29 22 - 32 mmol/L [facility] Comment:Testing performed by : [facility], [address] [place] [phone] Anion gap 5 2 - 15 mmol/L [facility] Comment:Testing performed by : [facility], [address] [place] [phone] BUN 14 8 - 25 mg/dL [facility] Comment:Testing performed by : [facility], [address] [place] [phone] Creatinine 0.85 0.80 - 1.30 mg/dL [facility] Comment:Testing performed by : [facility], [address] [place] [phone] Glucose 204(H) 70 - 199 mg/dL [facility] [...] was last revised 2017. Testing performed by: [facility], [address] [place] [phone] Calcium 9.7 8.5 - 10.3 mg/dL [facility] Comment:Testing performed by : [address] [phone] Bilirubin, total 0.5 0.1 - 1.2 mg/dL [facility] Comment:Testing performed by : [address] [phone] Protein, pl 7.6 6.5 - 8.5 g/dL [facility] Comment:Testing performed by : [address] [phone] Albumin 4.1 3.5 - 5.0 g/dL [facility] Comment:Testing performed by : [address] [phone] Alk phos 195(H) 40 - 130 Units/L [facility] Comment:Testing performed by : [facility], [address] [place], [place] [phone] ALT 16 7 - 55 Units/L [facility] Comment:Testing performed by : [facility], [address] [place] [phone] AST 15 10 - 50 Units/L [facility] Comment:Testing performed by : [facility], [address] [place] [phone] Blood specimen (specimen) 06/08/2021 9:37 AM CDT 06/08/2021 9:39 AM CDT us Narcisa Kilgore GILL BOX TENDER LAB BLOOD ORDERABLES Pilar l Result [facility] Department [place] [address] * (ABNORMAL) CBC with auto differential (06/08/2021 9:37 AM CDT) WBC 8.3 3.8 - 9.8 K/cumm [facility] Comment:Testing performed by : [facility], [address] [place] [phone] Hgb 13.6(L) 13.8 - 17.2 g/dL [facility] Comment:Testing performed by : [facility], [address] [place] [phone] Hct 40.0(L) 40.7 - 50.3 % [facility] Comment:Testing performed by : [facility], [address] [place] [phone] Plt 321 140 - 440 K/cumm [facility] Comment:Testing performed by : [address] [phone] MPV 7.7 6.8 - 10.4 fL [facility] Comment:Testing performed by : [address] [phone] RBC 3.93(L) 4.50 - 5.70 M/cumm [facility] Comment:Testing performed by : [address] [phone] MCV 101.8(H) 80.0 - 97.6 fL [facility] Comment:Testing performed by : [facility], [address] [place] [phone] MCH 34.7(H) 26.7 - 33.7 pg [facility] Comment:Testing performed by : [facility], [address] [place] [phone] MCHC 34.1 32.7 - 35.5 g/dL [facility] Comment:Testing performed by : [facility], [address] [place] [phone] RDW CV 13.8 11.8 - 14.6 % [facility] Comment:Testing performed by : [facility], [address] [place] [phone] NRBC abs 0.00 0.00 - 0.01 K/cumm [facility] Comment:Testing performed by : [facility], [address] [place] [phone] Blood specimen (specimen) 06/08/2021 9:37 AM CDT 06/08/2021 9:39 AM CDT us Narcisa Kilgore GILL BOX TENDER LAB BLOOD ORDERABLES Pilar armas Result [facility] [place] [address] documented in this encounter Visit Diagnoses Diagnosis 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)- Primary Uvsyb-dasibp-wfyq disease (HCC) documented in this encounter Orders Appointment Requests Count Last Ordered Date Fi rst Ordered Date ONCBCN CLINIC APPOINTMENT REQUEST 1 021 documented in this encounter 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 Care Teams Ecommerce Merchandising Manager Relationship Specialty Start Date End Date Kirt Lindsay DO PCP - General Internal Medicine 02/02/21 Josué Del Valle MD PhD Medical Oncologist/Receiver Dispatcher Medical Oncology 08/26/19 documented as of this encounter
--- OUTSIDE RECORDS SUMMARY | 2024-11-22 11:01 | XMS_ITS | Encounter Summary ---
Author Organization [facility] Address [address] [facility] [address] [place] [address] Phone Care Team Providers Care Air Traffic Control Manager Name Role Phone Josué Del aVlle MD PhD Unavailable [phone] Kirt Lindsay DO Primary Care Provider [phone] Reason for Referral * Diagnostic Imaging (Routine) - Closed Specialty Diagnoses / Procedures Referred By Contac t Referred To Contact Diagnoses Type 2 diabetes mellitus with hyperosmolarity without coma, with long-term current use of insulin (HCC) Osteopenia, unspecified location Procedures Dexa Axial Skeleton Bone Density 1 or 2 Site Eneida Gibson MD Phone: tel: [facility] Referral ID Status Reason Start Date Expiration Date Visits Re quested Visits Authorized [id number] Closed 02/03/2021 03/05/2022 25 25 Reason for Visit * Consultation (Routine) - Closed Specialty Diagnoses / Procedures Referred By Contac t Referred To Contact Oncology Diagnoses 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) Awfcr-bjjfzj-papj disease (HCC) 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HCC) Narcisa Kilgore NP Phone: tel: fax: Eneida Gibson MD [address] [place] [address] Phone: tel: Referral ID Status Reason Start Date Expiration Date V isits Requested Visits Authorized [id number] Closed Specialty Services Required 11/22/2020 05/21/2021 12 12 Encounter Details Date Type Department Care Team (Latest Contact Info) Description 02/03/2021 10:20 AM CDT Office Visit [facility] Oncology [address] [facility] 7th [place] [address] [place] [address] Eneida Gibson MD [address] [place] [address] Type 2 diabetes mellitus with hyperosmolarity without coma, with long-term current use of insulin ([facility]) (Primary Dx); Osteopenia, unspecified location; Pure hypercholesterolemia; Vitamin D deficiency Social History Tobacco Use Types Packs/Day Years Used Date Smoking Tobacco: Every Day Smokeless Tobacco: Never Comments:Pt not interested i n smoking cessation program Sex and Gender Information Value Date Recorded Sex Assigned at Not on file 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 Gender Identity Not on file Sexual Orientation Not on file documented as of this encounter Patient Instructions * Patient Instructions* Eneida Gibson MD - 02/03/2021 10:20 AM CDT Basaglar 15 units in the morning Take Novolog 5 units before meals 151-200: add 1 unit 201-250: add 2 units 251-300: add 3 units 351-400: add 4 units > 401: add 5 units Add daily OTC vitamin D3 2000 units documented in this encounter Ordered Prescriptions Prescription Sig Dispense Quantity Refills Last Filled Start Date End Date insulin glargine (LANTUS, BASAGLAR) 100 unit/mL (3 mL) pen for injectionIndications: Type 2 diabetes mellitus with hyperosmolarity without coma, with long-term current use of insulin ([facility]) INJECT 15 UNITS NIGHTLY SUB-Q. 1 pen 5 02/03/2021 4 insulin lispro (HumaLOG, ADMELOG) 100 unit/mL pen for injectionIndications: Type 2 diabetes mellitus with hyperosmolarity without coma, with long-term current use of insulin ([facility]) INJECT 5-10 UNITS TID WITH MEALS PLUS SLIDING SCALE. TDD OF 35 UNITS. 10 pen 6 02/03/2021 4 documented in this encounter Progress Notes * Eneida Gibson MD - 02/03/2021 10:20 AM CDT Subjective Patient is a 55 y.o. 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 He does not take prednisone. Current insulin regimen: Basaglar 12 U daily in the morning and Humalog before meals. He calculateshis Humalog dose by subtracting 120 from his BS value and dividing the result by 15. Stopped metformin because it caused SOB. He checks BS 1-3 times daily. His BS are in the 100s- 400s. Few hypoglycemic episodes, lowest BS 56. He has been taking weekly ergocalciferol. Drinks milk and eats cheeses. Denies falls or fractures. No back pain. Has neuropathy and takes gabapentin at night occasionally. He doesn't have retinopathy, has cataracts from prednisone use. No nephropathy. Takes atorvastatin 40 mg daily. He is smoking again. DIAGNOSES: 1. AML status post a sibling [...] MOUTH DAILY, Disp: 30 tablet, Rfl: 1 Review of Systems: Review of Systems All other systems reviewed and are negative. As per HPI. Objective Vitals: Most Recent : There were no vitals taken for this visit. Most Recent Value 11/06/2020 - 02/04/2021 Temp 36.5 ??C (97.7 ??F) 02/03/2021 BP 119/68 02/03/2021 Pulse 75 02/03/2021 Resp 20 02/03/2021 SpO2 96 % 02/03/2021 Height 178.5 cm (5' 10.28 ) 11/23/2020 Weight 68 kg (150 lb) 02/03/2021 BSA (Calculated - sq m) 1.86 sq meters 11/23/2020 BMI (Calculated) 22 11/23/2020 Physical Exam: Physical Exam Constitutional: Appearance: He is well-developed. HENT: Head: Normocephalic and atraumatic. Eyes: Conjunctiva/sclera: Conjunctivae normal. Cardiovascular: Rate and Rhythm: Normal rate and regular rhythm. Heart sounds: No murmur. Pulmonary: Breath sounds: Normal breath sounds. No wheezing or rales. Abdominal: General: Bowel sounds are normal. There is no distension. Palpations: Abdomen is soft. Tenderness: There is no abdominal tenderness. Musculoskeletal: General: No deformity. Skin: General: Skin is warm. Findings: No erythema or rash. Neurological: Mental Status: He is oriented to person, place, and time. Lab/Radiology/Diagnostic Review: Laboratory review: reviewed the laboratory result(s) in the last 24 hours: Recent Results (from the past 24 hour(s)) Hemoglobin A1c Collection Time: 02/03/21 12:04 PM Result Value Ref Range Hgb A1C 7.8 (H) 4.0 - 5.6 % Estimated Average Glucose 177 mg/dL Vitamin D 25 hydroxy Collection Time: 02/03/21 12:04 PM Result Value Ref Range Vitamin D, 25-hydroxy 23 (L) 30 - 80 ng/mL Type and screen Collection Time: 02/03/21 12:04 PM Result Value Ref Range Ursula, indirect Negative ABO Rh A Positive Lactate dehydrogenase (LD) Collection Time: 02/03/21 12:04 PM Result Value Ref Range Lactate dehydrogenase (LDH) 199 100 - 250 Units/L Comprehensive metabolic panel Collection Time: 02/03/21 12:04 PM Result Value Ref Range Sodium 141 135 - 145 mmol/L Potassium, pl 4.3 3.3 - 4.9 mmol/L Chloride 102 97 - 110 mmol/L CO2 35 (H) 22 - 32 mmol/L Anion gap 4 2 - 15 mmol/L BUN 12 8 - 25 mg/dL Creatinine 0.81 0.80 - 1.30 mg/dL Glucose 172 70 - 199 mg/dL Calcium 10.2 8.5 - 10.3 mg/dL Bilirubin, total 0.2 0.1 - 1.2 mg/dL Protein, pl 7.9 6.5 - 8.5 g/dL Albumin 4.6 3.5 - 5.0 g/dL Alk phos 176 (H) 40 - 130 Units/L ALT 26 7 - 55 Units/L AST 22 10 - 50 Units/L CBC with auto differential Collection Time: 02/03/21 12:04 PM Result Value Ref Range WBC 9.0 3.8 - 9.8 K/cumm Hgb 14.5 13.8 - 17.2 g/dL Hct 43.0 40.7 - 50.3 % Plt 322 140 - 440 K/cumm MPV 8.4 6.8 - 10.4 fL RBC 4.14 (L) 4.50 - 5.70 M/cumm MCV 103.8 (H) 80.0 - 97.6 fL MCH 35.1 (H) 26.7 - 33.7 pg MCHC 33.9 32.7 - 35.5 g/dL RDW CV 13.7 11.8 - 14.6 % NRBC abs 0.02 (H) 0.00 - 0.01 K/cumm Differential, auto Collection Time: 02/03/21 12:04 PM Result Value Ref Range Neutrophil abs 3.4 1.8 - 6.6 K/cumm Lymphocyte abs 4.2 (H) 1.2 - 3.3 K/cumm Monocyte abs 0.8 0.2 - 1.2 K/cumm Eosinophil abs 0.5 0.0 - 0.5 K/cumm Basophil abs 0.1 0.0 - 0.2 K/cumm Neutrophil pct 38.1 % Lymphocyte pct 46.5 % Monocyte pct 9.0 % Eosinophil pct 5.6 % Basophil pct 0.8 % DEXA 07/2019 FINDINGS: BONE MINERAL DENSITY OF THE LUMBAR SPINE Bone Mineral Density (BMD) of the lumbar spine was measured from L1-L4 and the average density was calculated to be 1.043 gm/cm2. This corresponds to a T-score standard deviations from the mean of young adults of -0.4. When compared to the previous study of 08/01/2018 there has been a measured 0.021 gm/cm 2.1% increase which is considered significant. BONE MINERAL DENSITY OF THE PROXIMAL FEMUR Bone Mineral Density (BMD) of the left hip total was found to be 0.762 gm/cm2. This corresponds to a T-score standard deviations from the mean of young adults of -1.8. Femoral neck is 0.650 gm/cm2 with a T-score of -2.1. When compared to the previous study of 08/01/2018 there has been no significant change noted. Assessment /Plan Type 2 diabetes mellitus -better controlled off steroids -Hgb A1C above goal but significantly improved -prednisone has been discontinued -will increase Basaglar to 15 units QAM -will take Novolog 5 units with meals + ISS( 1 unit for every 50 over 51) -monofilament exam 05/2019: absent sensation in 2nd and 3rd toes of R foot, normal sensation in L foot -no retinopathy, has cataracts -has appt on 02/15 -BP at goal Osteopenia -DEXA scan done 07/2019 revealed stable BMD -will continue vitamin D supplementation and dietary calcium -will repeat DEXA scan at next visit Hyperlipidemia continue atorvastatin Vitamin D deficiency -levels low -will continue weekly ergocalciferol and start vitamin D3 2000 units daily RTC in 6 months. documented in this encounter Plan of Treatment Not on file documented as of this encounter Results * (ABNORMAL) Hemoglobin A1c (08/11/2021 10:57 AM CDT) Hgb A1C 8.1(H) 4.0 - 5.6 % [facility] Estimated Average Glucose 186 mg/dL [facility] Comment: The ADA recommends reporting an [...] MD LAB BLOOD ORDERABLES Final Resul t [facility] [place] [address] * Lipid panel (08/11/2021 10:51 AM CDT) Cholesterol 196 30 - 199 mg/dL [facility] Comment: Interpretive Data Ages < or [...] on 2018. Triglycerides 88 <=149 mg/dL [facility] Comment: Interpretive Data Ages < or [...] revised on 2018. HDL 52 >=40 mg/dL [facility] Comment: Interpretive Data Ages < or [...] 2018. LDL, calculated 126 <=129 mg/dL [facility] Comment: Interpretive Data Ages < or [...] revised on 2018. Non-HDL Cholesterol 144 mg/dL [facility] Comment: Interpretive Data Ages < or [...] last revised on 2018. Chol/HDL ratio 4 [facility] Blood 08/11/2021 10:5 1 AM CDT 08/11/2021 11:09 AM CDT us Eneida Gibson MD LAB BLOOD ORDERABLES Final Resul t [facility] Department [place] [address] * (ABNORMAL) Vitamin D 25 hydroxy (08/11/2021 10:51 AM CDT) Vitamin D 25-OH 19(L) 30 - 80 ng/mL [facility] Blood 08/11/2021 10:5 1 AM CDT 08/11/2021 11:09 AM CDT us Eneida Gibson MD LAB BLOOD ORDERABLES Final Resul t [facility] Department [place] [address] * (ABNORMAL) Comprehensive metabolic panel (08/11/2021 10:51 AM CDT) Pathologist [facility] Sodium 143 135 - 145 mmol/L [facility] Comment:Testing performed by : [facility], [address] [place] [phone] Potassium, pl 4.3 3.3 - 4.9 mmol/L [facility] Comment:Testing performed by : [facility], [address] [place] [phone] Chloride 105 97 - 110 mmol/L [facility] Comment:Testing performed by : [facility], [address] [place] [phone] CO2 33(H) 22 - 32 mmol/L [facility] Comment:Testing performed by : [facility], [address] [place] [phone] Anion gap 5 2 - 15 mmol/L [facility] Comment:Testing performed by : [address] [phone] BUN 12 8 - 25 mg/dL [facility] Comment:Testing performed by : [facility], [address] [place] [phone] Creatinine 0.82 0.80 - 1.30 mg/dL [facility] Comment:Testing performed by : [address] [phone] Glucose 222(H) 70 - 199 mg/dL [facility] Comment: Interpretive Data Fasting glucose >/= [...] last revised 2017. Testing performed by: [facility], [address] [place] [phone] Calcium 9.6 8.5 - 10.3 mg/dL [facility] Comment:Testing performed by : [facility], [address] [place] [phone] Bilirubin, total 0.3 0.1 - 1.2 mg/dL [facility] Comment:Testing performed by : [address] [phone] Protein, pl 6.8 6.5 - 8.5 g/dL [facility] Comment:Testing performed by : [address] [phone] Albumin 4.0 3.5 - 5.0 g/dL [facility] Comment:Testing performed by : [facility], [address] [place] [phone] Alk phos 142(H) 40 - 130 Units/L [facility] Comment:Testing performed by : [address] [phone] ALT 17 7 - 55 Units/L [facility] Comment:Testing performed by : [address] [phone] AST 25 10 - 50 Units/L [facility] Comment:Testing performed by : [facility], [address] [place] [phone] Blood 08/11/2021 10:5 1 AM CDT 08/11/2021 10:54 AM CDT us Eneida Gibson MD LAB BLOOD ORDERABLES Final Resul t [facility] Department [place] [address] * Dexa Axial Skeleton Bone Density 1 or 2 Site (08/11/2021 10:36 AM CDT) Anatomical Region Laterality Modality Body N/A Radiographic Tiffany ging Narrative 08/16/2021 10:14 AM CDT Patient Name: Brady Jones Date of : 1965 Date of scan: 08/11/2021 Bone mineral density was performed on a Holo[employer] Discovery Densitometer. ?? Based on machine cross-calibration [...] bone mineral density scan were prepared by Meloyd Peña)(CBDT) who is accredited by the International Society of Clinical Densitometry. The overall patient assessment and scan interpretation were performed by Justine Banks M.D. ??who is certified by the International Society of Clinical Densitometry. [id number] Eneida Gibson MD IMG DXA PROCEDURES Final Result documented in this encounter Visit Diagnoses Diagnosis Type 2 diabetes mellitus with hyperosmolarity without coma, with long-term current use of insulin ([facility])- Primary Osteopenia, unspecified location Pure hypercholesterolemia Vitamin D deficiency Type 2 diabetes mellitus with hyperosmolarity without coma, with long-term current use of insulin (HCC) Osteopenia, unspecified location custodial (current) use of 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 Long-term (current) use of 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 documented in this encounter Discontinued Medications Medication Sig Discontinue Reason Start Date End Da te insulin lispro (HumaLOG, ADMELOG) 100 unit/mL insulin penIndications:Type 2 diabetes mellitus with hyperosmolarity without coma, with long-term current use of insulin ([facility]) INJECT 20 UNITS TID WITH MEALS PLUS SLIDING SCALE. TDD OF 90 UNITS. 12/20/2020 02/03/2021 insulin glargine (LANTUS,BASAGLAR) 100 unit/mL (3 mL) insulin penIndications:Type 2 diabetes mellitus with hyperosmolarity without coma, with long-term current use of insulin ([facility]) INJECT 40 UNITS NIGHTLY SUB-Q. 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
--- OUTSIDE RECORDS SUMMARY | 2024-11-22 11:01 | XMS_ITS | Encounter Summary ---
Author Organization [facility] Address [address] [place] [address] Phone Care Team Providers Care Project Account Manager Name Role Phone Josué Del Valle MD PhD Unavailable Halie Khan MD Primary Care Provider [phone] Encounter Details Date Type Department Care Team (Late st Contact Info) Description 11/30/2020 Telephone [place] [facility] Bone Marrow Transplant [address] [facility] 7th Floor, [place] [address] Josué Del Valle MD PhD [address] DIV IM BONE MARROW TRANSPLANT[address] [place] [address] Social History Tobacco Use Types Packs/Day Years Used Date Smoking Tobacco: Every Day Smokeless Tobacco: Never Comments:Pt not interested i n smoking cessation program Sex and Gender Information Value Date Recorded Sex Assigned at Not on file 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 They were mailing it the next day. DHOUSE FIRER/FIREMAN * Telephone Encounter - Katrin Brysno - 11/30/2020 12:52 PM CST Pt would like a copy of his itinerary mailed to him. DHOUSE FIRER/FIREMAN documented in this encounter Plan of Treatment Not on file documented as of this encounter Visit Diagnoses Not on filedocumented in this encounter 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 Care Teams Project Account Manager Relationship Specialty Start Date End Date Halie Khan MD [address] [address] PCP - General Critical Care Med 11/23/20 02/01/21 Josué Del Valle MD PhD Medical Oncologist/Precast Molder Medical Oncology 08/26/19 documented as of this encounter
--- OUTSIDE RECORDS SUMMARY | 2024-11-22 11:01 | XMS_ITS | Encounter Summary ---
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) Procedures ONCBCN ARM DRAW APPT ONC LAB ONLY [facility] [address] [facility] 7th [place] [address] [place] [address] Phone: tel: Rock Garcia MD [address] [place] [address] Phone: tel: fax: Referral ID Status Reason Start Date Expiration Date V isits Requested Visits Authorized [id number] Closed Specialty Services Required 11/22/2020 05/21/2021 12 12 Encounter Details Date Type Department Care Team (Late st Contact Info) Description 02/03/2021 9:30 AM CDT Lab [facility] [address] [facility] 7th [place] [address] [place] [address] 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); Pcfjc-wcwifk-hbdu disease (CMS/HCC); Vitamin D deficiency; Osteopenia, unspecified location; Type 2 diabetes mellitus with hyperosmolarity without coma, with long-term current use of insulin (CMS/HCC) Social History Tobacco Use Types Packs/Day Years Used Date Smoking Tobacco: Every Day Smokeless Tobacco: Never Comments:Pt not interested i n smoking cessation program Sex and Gender Information Value Date Recorded Sex Assigned at Not on file Legal Sex Male 10:48 AM 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 Gender Identity Not on file Sexual Orientation Not on file documented as of this encounter Plan of Treatment Not on file documented as of this encounter Procedures Procedure Name Priority Date/Time Associated Diagnosis Comments DIFFERENTIAL AUTO Routine 02/03/2021 12: 04 PM CDT 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) Lvzbw-oknqvx-bbyj disease (CMS/HCC) CBC WITH AUTO DIFFERENTIAL Routine 02/03/2021 12:04 PM CDT 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) Jmydq-sqshlx-ysrj disease (CMS/HCC) TACROLIMUS LEVEL, RANDOM Routine 02/03/2021 12:04 PM CDT 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) Lfjle-qnyevn-rwyf disease (CMS/HCC) VITAMIN D 25 HYDROXY Routine 02/03/2021 12:04 PM CDT 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) Spqus-omwanv-nfoc disease (CMS/HCC) TYPE AND SCREEN Routine 02/03/2021 12:04 PM CDT 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) Zoygw-ezyqcf-prjm disease (CMS/HCC) LACTATE DEHYDROGENASE Routine 02/03/2021 12:04 PM CDT 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) Ymqwc-etwang-qqjd disease (CMS/HCC) HEMOGLOBIN A1C Routine 02/03/2021 12:04 PM CDT Vitamin D deficiency Osteopenia, unspecified location Type 2 diabetes mellitus with hyperosmolarity without coma, with long-term current use of insulin (CMS/HCC) COMPREHENSIVE METABOLIC PANEL Routine 02/03/2021 12:04 PM CDT 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) Svgox-pakjel-cvbm disease (CMS/HCC) CYTOMEGALOVIRUS (CMV) DNA, QUANT GEN LAB Routine 02/03/2021 11:47 AM CDT 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) Ofjak-qnudmd-wevu disease (CMS/HCC) documented in this encounter Results * (ABNORMAL) Differential, auto (02/03/2021 12:04 PM CDT) Neutrophil abs 3.4 1.8 - 6.6 K/cumm [facility] Comment:Testing performed by : [facility], [address] [place] [phone] Lymphocyte abs 4.2(H) 1.2 - 3.3 K/cumm [facility] Comment:Testing performed by : [facility], [address] [place] [phone] Monocyte abs 0.8 0.2 - 1.2 K/cumm [facility] Comment:Testing performed by : [facility], [address] [place] [phone] Eosinophil abs 0.5 0.0 - 0.5 K/cumm [facility] Comment:Testing performed by : [facility], [address] [place] [phone] Basophil abs 0.1 0.0 - 0.2 K/cumm [facility] Comment:Testing performed by : [facility], [address] [place] [phone] Neutrophil pct 38.1 % [facility] Comment: Interpretive Data Percent cell count reference ranges are not reported, since discordance with absolute values may lead to misinterpretation of CBC data. Current Interpretive Data was last revised on 2018. Testing performed by: [facility], [address] [place] [phone] Lymphocyte pct 46.5 % [facility] Comment: Interpretive Data Percent cell count reference ranges are not reported, since discordance with absolute values may lead to misinterpretation of CBC data. Current Interpretive Data was last revised on 2018. Testing performed by: [facility], [address] [place] [phone] Monocyte pct 9.0 % [facility] Comment:Testing performed by : [facility], [address] [place] [phone] Eosinophil pct 5.6 % [facility] Comment:Testing performed by : [facility], [address] [place] [phone] Basophil pct 0.8 % [facility] Comment:Testing performed by : [facility], [address] [place] [phone] Blood specimen (specimen) 02/03/2021 12:04 PM CDT 02/03/2021 12:10 PM CDT us Narcisa Kilgore ADVERTISING SALES AGENT LAB BLOOD ORDERABLES Pilar l Result [facility] Department of Laboratories [place], [place] [id number] * (ABNORMAL) CBC with auto differential (02/03/2021 12:04 PM CDT) WBC 9.0 3.8 - 9.8 K/cumm [facility] Comment:Testing performed by : [facility], [address] [place] [phone] Hgb 14.5 13.8 - 17.2 g/dL [facility] Comment:Testing performed by : [facility], [address] [place] [phone] Hct 43.0 40.7 - 50.3 % [facility] Comment:Testing performed by : [address] [phone] Plt 322 140 - 440 K/cumm [facility] Comment:Testing performed by : [facility], [address] [place] [phone] MPV 8.4 6.8 - 10.4 fL [facility] Comment:Testing performed by : [facility], [address] [place], [place] [phone] RBC 4.14(L) 4.50 - 5.70 M/cumm [facility] Comment:Testing performed by : [facility], [address] [place], [place] [phone] MCV 103.8(H) 80.0 - 97.6 fL [facility] Comment:Testing performed by : [facility], [address] [place] [phone] MCH 35.1(H) 26.7 - 33.7 pg [facility] Comment:Testing performed by : [address] [phone] MCHC 33.9 32.7 - 35.5 g/dL [facility] Comment:Testing performed by : [facility], [address] [place] [phone] RDW CV 13.7 11.8 - 14.6 % [facility] Comment:Testing performed by : [address] [phone] NRBC abs 0.02(H) 0.00 - 0.01 K/cumm [facility] Comment:Testing performed by : [address] [phone] Blood specimen (specimen) 02/03/2021 12:04 PM CDT 02/03/2021 12:10 PM CDT us Narcisa Kilgore ADVERTISING SALES AGENT LAB BLOOD ORDERABLES Pilar armas Result [facility] [place] [address] * (ABNORMAL) Comprehensive metabolic panel (02/03/2021 12:04 PM CDT) Sodium 141 135 - 145 mmol/L [facility] Comment:Testing performed by : [facility], [address] [place] [phone] Potassium, pl 4.3 3.3 - 4.9 mmol/L [facility] Comment:Testing performed by : [facility], [address] [place] [phone] Chloride 102 97 - 110 mmol/L [facility] Comment:Testing performed by : [facility], [address] [place] [phone] CO2 35(H) 22 - 32 mmol/L [facility] Comment:Testing performed by : [facility], [address] [place] [phone] Anion gap 4 2 - 15 mmol/L [facility] Comment:Testing performed by : [facility], [address] [place] [phone] BUN 12 8 - 25 mg/dL [facility] Comment:Testing performed by : [facility], [address] [place] [phone] Creatinine 0.81 0.80 - 1.30 mg/dL [facility] Comment:Testing performed by : [facility], [address] [place] [phone] Glucose 172 70 - 199 mg/dL [facility] Comment: [...] was last revised 2017. Testing performed by: [facility], [address] [place] [phone] Calcium 10.2 8.5 - 10.3 mg/dL [facility] Comment:Testing performed by : [facility], [address] [place] [phone] Bilirubin, total 0.2 0.1 - 1.2 mg/dL [facility] Comment:Testing performed by : [facility], [address] [place] [phone] Protein, pl 7.9 6.5 - 8.5 g/dL [facility] Comment:Testing performed by : [facility], [address] [place] [phone] Albumin 4.6 3.5 - 5.0 g/dL [facility] Comment:Testing performed by : [facility], [address] [place] [phone] Alk phos 176(H) 40 - 130 Units/L [facility] Comment:Testing performed by : [facility], [address] [place] [phone] ALT 26 7 - 55 Units/L [facility] Comment:Testing performed by : [facility], [address] [place] [phone] AST 22 10 - 50 Units/L [facility] Comment:Testing performed by : [facility], [address] [place] [phone] Blood specimen (specimen) 02/03/2021 12:04 PM CDT 02/03/2021 12:10 PM CDT Narcisa Kilgore ADVERTISING SALES AGENT LAB BLOOD ORDERABLES Pilar l Result Performing Organization Address [facility]/ZIP Co de Phone Number [facility] [place] [address] * Lactate dehydrogenase (LD) (02/03/2021 12:04 PM CDT) Lactate dehydrogenase (LDH) 199 100 - 250 Units/L [facility] Comment:Testing performed by : [facility], [address] [place] [phone] Blood specimen (specimen) 02/03/2021 12:04 PM CDT 02/03/2021 12:10 PM CDT Narcisa Kilgore ADVERTISING SALES AGENT LAB BLOOD ORDERABLES Pilar l Result Performing Organization Address City/[facility]/ZIP Co de Phone Number [facility] [place] [address] * Type and screen (02/03/2021 12:04 PM CDT) Ursula, indirect Negative [facility] ABO Rh A Positive [facility] Blood specimen (specimen) 02/03/2021 12:04 PM CDT 02/03/2021 12:24 PM CDT Narrative [facility] - 02/03/2021 1:23 PM CDT Has the patient had Daratumumab or Isatuximab in the past 6 months?->Unknown Narcisa Kilgore NP LAB BLOOD BANK TEST ORDER SUBHA Final Result Performing Organization Address [facility] Co de Phone Number [facility] [place] [address] * Tacrolimus level random (02/03/2021 12:04 PM CDT) Pathologist [facility] Tacrolimus random 1.9 ng/mL [facility] Comment: Interpretive Data Testing performed by liquid chromatography-tandem mass spectrometry. ??Therapeutic concentrations vary depending on type of transplanted organ and time elapsed since transplant. ??Typical trough concentrations range from 5-15 ng/mL. ??This test was developed and its performance characteristics determined by the [facility] consistent with CLIA requirements. ??This test has not been cleared or approved by the [place] Food and Drug administration. ??Current interpretive data last reviewed 2020. Blood specimen (specimen) 02/03/2021 12:04 PM CDT 02/03/2021 12:23 PM CDT Narcisa Kilgore NP LAB BLOOD ORDERABLES Pilar l Result Performing Organization Address [facility] Co de Phone Number [facility] Department [place] [address] * (ABNORMAL) Vitamin D 25 hydroxy (02/03/2021 12:04 PM CDT) [facility] Vitamin D 25-OH 23(L) 30 - 80 ng/mL [facility] Blood specimen (specimen) 02/03/2021 12:04 PM CDT 02/03/2021 12:22 PM CDT Narcisa Kilgore NP LAB BLOOD ORDERABLES Pilar l Result Performing Organization Address [facility] de Phone Number [facility] [place] [address] * (ABNORMAL) Hemoglobin A1c (02/03/2021 12:04 PM CDT) [facility] Hgb A1C 7.8(H) 4.0 - 5.6 % [facility] Estimated Average Glucose 177 mg/dL [facility] Comment: The ADA recommends reporting an estimated Average Glucose (eAG) with all Hemoglobin A1c results using the equation derived from a study of 507 normal and diabetic adults. ??Minority populations were underrepresented and children were not included. ?? (Diabetes Care 31:6144-8832, 2008). ??The eAG is not equivalent to a fasting glucose. Blood specimen (specimen) 02/03/2021 12:04 PM CDT 02/03/2021 12:23 PM CDT Eneida Gibson MD LAB BLOOD ORDERABLES Final Resul t Performing Organization Address [facility] de Phone Number [facility] [place] [address] * Cytomegalovirus (CMV) DNA PCR, quantitative Blood (02/03/2021 11:47 AM CDT) [facility] CMV DNA Not Detected [facility] Comment: Interpretive Data: The quantifiable range of this assay is 137 IUnits/mL to 9,100,000 IUnits/mL (2.14 log IUnits/mL to 6.96 log IUnits/mL). Testing was performed by the [employer]/MICHEL TaqMan CMV Test ([employer] Testing performed at [facility] Current interpretive data was last revised on 17. 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) Qlsfo-tilkhz-jumt disease (HCC) Vitamin D deficiency Osteopenia, unspecified location Type 2 diabetes mellitus with hyperosmolarity without coma, with long-term current use of insulin (HCC) documented in this encounter Orders Appointment Requests Count Last Ordered Date Fi rst Ordered Date ONCBCN LAB APPOINTMENT 1 02/03/2021 documented in this encounter 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
--- OUTSIDE RECORDS SUMMARY | 2024-11-22 11:01 | XMS_ITS | Encounter Summary ---
Author Organization [facility] Address [address] [place] [address] Phone Care Team Providers Care Tax Attorney Name Role Phone Josué Del Valle MD PhD Unavailable [phone] Halie Khan MD Primary Care Provider [phone] Encounter Details Date Type Department Care Team (Late st Contact Info) Description 12/21/2020 Orders Only [facility] Bone Marrow Transplant [address] [facility] Medicine 7th [place], [place] [address] Silva Mortensen RMA AML (acute myeloid leukemia) in remission ([facility]/HCC) Social History Tobacco Use Types Packs/Day Years Used Date Smoking Tobacco: Every Day Smokeless Tobacco: Never Comments:Pt not interested i n smoking cessation program Sex and Gender Information Value Date Recorded Sex Assigned at Not on file Legal 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 Gender Identity Not on file Sexual Orientation Not on file documented as of this encounter Ordered Prescriptions Prescription Sig Dispense Quantity Refills Last Filled Start Date End Date albuterol HFA (Ventolin HFA) 90 mcg/actuation inhalerIndications :AML (acute myeloid leukemia) in remission ([facility]) Inhale 1-2 puffs every 4 (four) hours as needed for wheezing 1 Inhaler 3 12/21/2020 documented in this encounter Plan of Treatment Not on file documented as of this encounter Visit Diagnoses Diagnosis 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) documented in this encounter Discontinued Medications Medication Sig Discontinue Reason Start Date End Da te Ventolin HFA 90 mcg/actuation inhalerIndications: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) Inhale 1-2 puffs every 4 (four) hours as needed for wheezing Reorder 12/05/2020 12/21/2020 documented as of this encounter 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 Care Teams Tax Attorney Relationship Specialty Start Date End Date Halie Khan MD [address] [place] [address] PCP - General Critical Care Med 11/23/20 02/01/21 Josué Del Valle MD PhD Medical Oncologist/Prototype Sewer Medical Oncology 08/26/19 documented as of this encounter
--- OUTSIDE RECORDS SUMMARY | 2024-11-22 11:01 | XMS_ITS | Encounter Summary ---
Author Organization [facility] Address [address] [place] [address] Phone Care Team Providers Care Nutrition Associate Name Role Phone Josué Del Valle MD PhD Unavailable [phone] Kirt Lindsay DO Primary Care Provider [phone] Encounter Details Date Type Department Care Team (Late st Contact Info) Description 02/02/2021 Telephone [facility] Oncology [address] [facility] Advanced Medicine 7th [place] [address] [place] [address] Jordan Meyers RN [address] [place] [id number] Social History Tobacco Use Types Packs/Day Years Used Date Smoking Tobacco: Every Day Smokeless Tobacco: Never Comments:Pt not interested i n smoking cessation program Sex and Gender Information Value Date Recorded Sex Assigned at Not on file Legal Sex Male 10:48 AM 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 The patient's voice mail system answered the phone call. This nurse left a voice mail message as to the nature of the phone call. ? documented in this encounter Plan of Treatment Not on file documented as of this encounter Visit Diagnoses Not on filedocumented in this encounter 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 Care Teams Nutrition Associate Relationship Specialty Start Date End Date Kirt Lindsay DO PCP - General Internal Medicine 02/02/21 Josué Del Valle MD PhD Medical Oncologist/Fabricating Machine Operator Medical Oncology 08/26/19 documented as of this encounter
--- OUTSIDE RECORDS SUMMARY | 2024-11-22 11:01 | XMS_ITS | Encounter Summary ---
Author Organization [facility] Address [address] [place] [address] Phone Care Team Providers Care Cook Mess Name Role Phone Josué Del Valle MD PhD Unavailable Halie Khan MD Primary Care Provider [phone] Encounter Details Date Type Department Care Team (Late st Contact Info) Description 12/13/2020 Orders Only [facility] Oncology [address] [facility] Advanced Medicine 7th [place] [address] [place] [address] Eneida Gibson MD [address] [place] [address] Type 2 diabetes mellitus with hyperosmolarity without coma, with long-term current use of insulin ([facility]) (Primary Dx) Social History Tobacco Use Types Packs/Day Years Used Date Smoking Tobacco: Every Day Smokeless Tobacco: Never Comments:Pt not interested i n smoking cessation program Sex and Gender Information Value Date Recorded Sex Assigned at Not on file 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 5 pen 5 12/13/2020 documented in this encounter Plan of Treatment Not on file documented as of this encounter Visit Diagnoses Diagnosis Type 2 diabetes mellitus with hyperosmolarity without coma, with long-term current use of insulin (HCC)- Primary documented in this encounter Discontinued Medications Medication Sig Discontinue Reason Start Date End Da te insulin glargine (LANTUS,BASAGLAR) 100 unit/mL (3 mL) insulin pen INJECT 40 UNITS NIGHTLY SUB-Q. Reorder 01/29/2020 12/13/2020 documented as of this encounter 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 Care Teams Cook Mess Relationship Specialty Start Date End Date Halie Khan MD [address] [place] [address] PCP - General Critical Care Med 11/23/20 02/01/21 Josué Del Valle MD PhD Medical Oncologist/Manager [employer] Medical Oncology 08/26/19 documented as of this encounter
--- OUTSIDE RECORDS SUMMARY | 2024-11-22 11:01 | XMS_ITS | Encounter Summary ---
Author Organization [facility] Address [address] [facility] [address] [place] [address] Phone Care Team Providers Care Attendant Coin Operated Laundry Name Role Phone Josué Del Valle MD PhD Unavailable Kirt Lindsay DO Primary Care Provider [phone] Reason for Referral * Diagnostic Imaging (Routine) - Closed Specialty Diagnoses / Procedures Referred By Controberta t Referred To Contact Diagnoses Combined form of senile cataract of both eyes Procedures Corneal Topography - OU - Both Eyes Ravi Hughes MD [address] [address] Phone: tel: fax: [facility] (All Locations) Referral ID Status Reason Start Date Expiration Date Visits Re quested Visits Authorized [id number] Closed 02/15/2021 03/17/2022 1 1 * Diagnostic Imaging (Routine) - Closed Specialty Diagnoses / Procedures Referred By Controberta anderson Referred To Contact Diagnoses Combined form of senile cataract of both eyes Procedures IOL Biometry - OU - Both Eyes Ravi Hughes MD [address] [address] Phone: tel: fax: [facility] (All Locations) Referral ID Status Reason Start Date Expiration Date Visits Re quested Visits Authorized [id number] Closed 02/15/2021 03/17/2022 1 1 Reason for Visit * Reason Comments Dry Eye Encounter Details Date Type Department Care Team (Late st Contact Info) Description 02/15/2021 1:30 PM CDT Office Visit [facility] Ophthalmology [address] [facility] 6th [place] [id number] Ravi Hughes MD [address] [facility] [address] [place] [address] Combined form of senile cataract of both eyes (Primary Dx) Social History Tobacco Use Types Packs/Day Years Used Date Smoking Tobacco: Every Day Smokeless Tobacco: Never Comments:Pt not interested i n smoking cessation program Sex and Gender Information Value Date Recorded Sex Assigned at Not on file 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 documented in this encounter Progress Notes * Alessio Christiansen MD - 02/15/2021 1:30 PM CDT Reason for Visit Today Chief Complaint Dry Eye HPI Dry Eye Follow-up for Dry Eye(s). Located in both eyes. Associated signs and symptoms include foreign body sensation, burning, blurred vision, light sensitivity and irritation. Occurring constantly. It is worse throughout the day. Duration of 10 years. Since onset it is gradually worsening. Treatments tried: Ofloxacin prn, Gel gtts Qhs OU. Response to treatment was no improvement. 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 Eyes feel dry. Using ATs. H/o GVHD with RACHEL Last edited by Alessio Christiansen MD on 02/15/2021 2:43 PM. 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 Patient knows to call should they have any of the symptoms. Cosigned by Ravi Hughes MD at 02/15/2021 3:03 PM CDT Associated attestation - Ravi Hughes MD - 02/15/2021 3:03 PM CDT I was present with the resident or fellow during the history and exam. I discussed this patient with the staff physician and agree with the findings and plan as documented in the staff physician's note. I have made corrections and additions as appropriate. 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) - R/B/A discussed; pt wishes to proceed with CEIOL OU, OD first Plan - to OR under MAC for CEIOL OD RTC Postop * Addendum Note - Luz Munoz BJason - 02/15/2021 1:30 PM CDTAddended by: LUZ MUNOZ on: 02/15/2021 03:12 PM Modules accepted: Orders * Addendum Note - Luz Munoz BJason - 02/15/2021 1:30 PM CDTAddended by: LUZ MUNOZ on: 02/15/2021 05:04 PM Modules accepted: Orders documented in this encounter Plan of Treatment Scheduled Orders Name Type Priority Associated Diagnoses Orde r Schedule Corneal Topography - OU - Both Eyes Ophthalmology Routine Combined form of senile cataract of both eyes Ordered: 02/15/2021 documented as of this encounter Procedures Procedure Name Priority Date/Time Associated Diagnosis Comments IOL BIOMETRY - OU - BOTH EYES Routine 02/15/2021 4:06 PM CDT Combined form of senile cataract of both eyes documented in this encounter Results * IOL Biometry - OU - Both Eyes (02/15/2021 4:06 PM CDT) A LENGTH (OS) 23.72 mm A LENGTH (OD) 23.87 mm White to White (OS) 11.9 mm White to White (OD) 11.8 mm AC IOL (OS) 3.54 mm AC IOL (OD) 3.66 mm Anatomical Region Laterality Modality Head Other Narrative 02/17/2021 1:49 PM CDT Right Eye Axial length was 23.87 mm. White to white was 11.8 mm. AC Depth was 3.66 mm. Left Eye Axial length was 23.72 mm. White to white was 11.9 mm. AC Depth was 3.54 mm. us Ravi Hughes MD OPHTH ULTRASOUND Final Result documented in this encounter Visit Diagnoses Diagnosis Combined form of senile cataract of both eyes- Primary documented in this encounter Historical Medications * This list may reflect changes made after this encounter. 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 Eye Exam Visual Acuity (Snellen - Linear) Right eye Left eye Dist sc CF@2' CF@2' Dist ph sc NI NI Tonometry (Tonopen, 2:07 PM) Right eye Left eye Pressure 11 12 Pupils Dark Shape React APD Right eye 4 Round Minimal None Left eye 4.5 Round Minimal None Visual Mitchell Right eye Left eye Restrictions Partial outer superi or temporal, inferior temporal, superior nasal, inferior nasal deficiencies Partial outer superior temporal, inferior temporal, superior nasal, inferior nasal deficiencies Extraocular Movement Right eye Left eye Full, Ortho Full, Ortho Neuro/Psych Oriented x3: Yes Mood/Affect: Normal Dilation Both eyes: 1.0% Mydriacyl @ 2:07 PM External Exam Right eye Left eye External Normal Normal Slit Lamp Exam Right eye Left eye Lids/Lashes Normal Normal Conjunctiva/Sclera White and quiet White and yaniv et Cornea Clear Clear Anterior Chamber Deep and quiet Deep and quiet Iris Round and reactive Round and josé ctive Lens Clear Clear Fundus Exam Right eye Left eye Disc Normal Normal C/D Ratio 0.2 0.2 Macula Normal Normal Vessels Normal Normal Periphery Normal; hazy view Normal; hazy v iew Care Teams Attendant Coin Operated Laundry Relationship Specialty Start Date End Date Kirt Lindsay DO PCP - General Internal Medicine 02/02/21 Josué Del Valle MD PhD Medical Oncologist/Interlocking Tower Operator Medical Oncology 08/26/19 documented as of this encounter
--- OUTSIDE RECORDS SUMMARY | 2024-11-22 11:01 | XMS_ITS | Encounter Summary ---
Author Organization [facility] Address [address] [place] [address] Phone Care Team Providers Care Horticultural Farmer Name Role Phone Josué Del Valle MD PhD Unavailable Halie Khan MD Primary Care Provider [phone] Encounter Details Date Type Department Care Team (Late st Contact Info) Description 12/20/2020 Orders Only [facility] Oncology [address] [facility] Advanced Medicine 7th [place] [address] [place] [address] Eneida Gibson MD [address] [place] [address] Type 2 diabetes mellitus with hyperosmolarity without coma, with long-term current use of insulin ([facility]) (Primary Dx) Social History Tobacco Use Types [...] Last Filled Start Date End Date insulin lispro (HumaLOG, ADMELOG) 100 unit/mL insulin penIndications:Type 2 diabetes mellitus with hyperosmolarity without coma, with long-term current use of insulin (HCC) INJECT 20 UNITS TID WITH MEALS PLUS SLIDING SCALE. TDD OF 90 UNITS. 10 pen 6 12/20/2020 documented in this encounter Plan of Treatment Not on file documented as of this encounter Visit Diagnoses Diagnosis Type 2 diabetes mellitus with hyperosmolarity without coma, with long-term current use of insulin (HCC)- Primary documented in this encounter Discontinued Medications Medication Sig Discontinue Reason Start Date End Da te insulin lispro (HumaLOG) 100 unit/mL insulin penIndications:Type 2 diabetes mellitus with hyperosmolarity without coma, with long-term current use of insulin (HCC) INJECT 20 UNITS TID WITH MEALS PLUS SLIDING SCALE. TDD OF 90 UNITS. Reorder 01/29/2020 12/20/2020 documented as of this encounter 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 Care Teams Horticultural Farmer Relationship Specialty Start Date End Date Halie Khan MD [address] [facility] [address] [place] [id number] PCP - General Critical Care Med 11/23/20 02/01/21 Josué Del Valle MD PhD Medical Oncologist/Lead Principal Technical Architect Medical Oncology 08/26/19 documented as of this encounter
--- OUTSIDE RECORDS SUMMARY | 2024-11-22 11:01 | XMS_ITS | Encounter Summary ---
Author Organization [facility] Address [address] [place] [address] Phone Care Team Providers Care Chief Supply Chain Officer Name Role Phone Josué Del Valle MD PhD Unavailable Halie Khan MD Primary Care Provider [phone] Encounter Details Date Type Department Care Team (Late st Contact Info) Description 12/12/2020 Orders Only [facility] Oncology [address] [facility] Advanced Medicine 7th [place] [address] [place] [address] Jordan Meyers RN [address] [place], [place] [id number] Social History Tobacco Use Types Packs/Day Years Used Date Smoking Tobacco: Every Day Smokeless Tobacco: Never Comments:Pt not interested i n smoking cessation program Sex and Gender Information Value Date Recorded Sex Assigned at Not on file 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 Gender Identity Not on file Sexual Orientation Not on file documented as of this encounter Plan of Treatment Not on file documented as of this encounter Visit Diagnoses Not on filedocumented in this encounter Additional Health Concerns 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 September 06, 2011 11/26/2010 11/26/201006/18 06/2021 5:00 AM CDT documented as of this encounter Care Teams Chief Supply Chain Officer Relationship Specialty Start Date End Date Halie Khan MD [address] [facility] [address] [place] [address] PCP - General Critical Care Med 11/23/20 02/01/21 Josué Del Valle MD PhD Medical Oncologist/Paper Pattern Folder Medical Oncology 08/26/19 documented as of this encounter
--- OUTSIDE RECORDS SUMMARY | 2024-11-22 11:01 | XMS_ITS | Encounter Summary ---
Author Organization [facility] Address [address] [place] [address] Phone Care Team Providers Care Forensic Examiner Name Role Phone Josué Del Valle MD PhD Unavailable Hlaie Khan MD Primary Care Provider [phone] Encounter Details Date Type Department Care Team (Late st Contact Info) Description 01/23/2021 Telephone [facility] Ophthalmology [address] [facility] 6th [place] [address] Ravi Hughes MD [address] [place] [address] 6 [place] [address] Social History Tobacco Use Types Packs/Day Years Used Date Smoking Tobacco: Every Day Smokeless Tobacco: Never Comments:Pt not interested i n smoking cessation program Sex and Gender Information Value Date Recorded Sex Assigned at Not on file 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 ROOM MANAGER documented in this encounter Plan of Treatment Not on file documented as of this encounter Visit Diagnoses Not on filedocumented in this encounter 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 Care Teams Forensic Examiner Relationship Specialty Start Date End Date Halie Khan MD [address] [facility] [address] [place] [address] PCP - General Critical Care Med 11/23/20 02/01/21 Josué Del Valle MD PhD Medical Oncologist/Floor Finisher Helper Medical Oncology 08/26/19 documented as of this encounter
--- OUTSIDE RECORDS SUMMARY | 2024-11-22 11:02 | XMS_ITS | Encounter Summary ---
Author Organization [facility] Address [address] [place] [address] Phone Care Team Providers Care Shafting Worker Name Role Phone Kirt Lindsay DO Primary Care Provider [phone] Josué Del Valle MD PhD Unavailable [phone] Encounter Details Date Type Department Care Team (Late st Contact Info) Description 01/22/2020 Documentation [facility] Oncology [address] [facility] 7th [place] [address] [place] [address] Penny Valero, RN Social History Tobacco Use Types Packs/Day Years Used Date Smoking Tobacco: Every Day Smokeless Tobacco: Never Comments:Pt not interested i n smoking cessation program Sex and Gender Information Value Date Recorded Sex Assigned at Not on file 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 Gibson to inform her that he needed refills on his insulin. As always I have tried several times unsuccessfully to reach Mr. Jones and left messages withno return calls. I will continue to try and reach him to order what he needs. Y PRODUCER documented in this encounter Plan of Treatment Not on file documented as of this encounter Visit Diagnoses Not on filedocumented in this encounter 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 Care Teams Shafting Worker Relationship Specialty Start Date End Date Kirt Lindsay DO PCP - General 05/02/17 11/22/20 Josué Del Valle MD PhD Medical Oncologist/Body Trimmer Upholsterer Medical Oncology 08/26/19 documented as of this encounter
--- OUTSIDE RECORDS SUMMARY | 2024-11-22 11:02 | XMS_ITS | Encounter Summary ---
Author Organization [facility] Address [address] [place] [address] Phone Care Team Providers Care Kiln Tender Name Role Phone Kirt Lindsay DO Primary Care Provider [phone] Josué Del Valle MD PhD Unavailable [phone] Encounter Details Date Type Department Care Team (Late st Contact Info) Description 11/22/2020 Orders Only [facility] Bone Marrow Transplant [address] [facility] Advanced Medicine 7th Floor, [place] [address] Sylvia Frias RN 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CMS/HCC) (Primary Dx) Social History Tobacco Use Types Packs/Day Years Used Date Smoking Tobacco: Every Day Smokeless Tobacco: Never Comments:Pt not interested i n smoking cessation program Sex and Gender Information Value Date Recorded Sex Assigned at Not on file 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 Gender Identity Not on file Sexual Orientation Not on file documented as of this encounter Plan of Treatment Not on file documented as of this encounter Results * IgG (11/23/2020 9:14 AM LOAD BUILDER) Immunoglobulin G 1,048.0 700.0 - 1,600.0 mg/dL ZULEMA DENT Blood specimen (specimen) 11/23/2020 9:14 AM LOAD BUILDER 11/23/2020 9:51 AM LOAD BUILDER Josué Del Valle MD PhD LAB BLOOD ORDERABLES Fin al Result [facility] Department [place] [address] documented in this encounter Visit Diagnoses Diagnosis 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HCC)- Primary documented in this encounter 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 Care Teams Kiln Tender Relationship Specialty Start Date End Date Kirt Lindsay DO PCP - General 05/02/17 11/22/20 Josué Del Valle MD PhD Medical Oncologist/Precision Crop Manager Medical Oncology 08/26/19 documented as of this encounter
--- OUTSIDE RECORDS SUMMARY | 2024-11-22 11:02 | XMS_ITS | Encounter Summary ---
Author Organization [facility] Address [address] [facility] [address] [place] [address] Phone Care Team Providers Care Agriculture Extension Specialist Name Role Phone Kirt Lindsay DO Primary Care Provider [phone] Josué Del Valle MD PhD Unavailable [phone] Reason for Visit * Reason Onset Date Comments [facility] 09/26/2020 Rx for Diabeti c supplies Encounter Details Date Type Department Care Team (Late st Contact Info) Description 09/26/2020 Telephone [facility] Endocrinology Metabolism and Lipid [address] [facility] Advanced Medicine 13th [place] [address] [place] [address] Delia Ngo CMA [facility] (Rx for Diabetic supplies) Social History Tobacco Use Types Packs/Day Years Used Date Smoking Tobacco: Every Day Smokeless Tobacco: Never Comments:Pt not interested i n smoking cessation program Sex and Gender Information Value Date Recorded Sex Assigned at Not on file Legal 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 HANDISE ASSOCIATE documented in this encounter Plan of Treatment Not on file documented as of this encounter Visit Diagnoses Not on filedocumented in this encounter 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 Care Teams Agriculture Extension Specialist Relationship Specialty Start Date End Date Kirt Lindsay DO PCP - General 05/02/17 11/22/20 Josué Del Valle MD PhD Medical Oncologist/Ocean Rescue Lieutenant Medical Oncology 08/26/19 documented as of this encounter
--- OUTSIDE RECORDS SUMMARY | 2024-11-22 11:02 | XMS_ITS | Encounter Summary ---
Author Organization [facility] Address [address] [place] [address] Phone Care Team Providers Care Press Setter Name Role Phone Kirt Lindsay DO Primary Care Provider [phone] Josué Del Valle MD PhD Unavailable [phone] Reason for Visit * Reason Onset Date Comments Med Refill 10/19/2020 omega 3 (needs A ppt.) Encounter Details Date Type Department Care Team (Late st Contact Info) Description 10/19/2020 Telephone [facility] Endocrinology Metabolism and Lipid [address] [facility] Advanced Medicine 13th [place] [address] [place] [address] Mala Hernandez RN Med Refill (omega 3 (needs Appt.)) Social History Tobacco Use Types Packs/Day Years Used Date Smoking Tobacco: Every Day Smokeless Tobacco: Never Comments:Pt not interested i n smoking cessation program Sex and Gender Information Value Date Recorded Sex Assigned at Not on file Legal Sex Male 10:48 AM ACETYLENE TORCH OPERATOR Gender Identity Not on file Sexual Orientation Not on file documented as of this encounter Miscellaneous Notes * Telephone Encounter - Mala Hernandez RN - 10/19/2020 11:58 AM ACETYLENE TORCH OPERATOR 3 years since provider saw [phone]. Will send message to schedule appointment so his meds could bereilled then. YLENE TORCH OPERATOR documented in this encounter Plan of Treatment Not on file documented as of this encounter Visit Diagnoses Not on filedocumented in this encounter 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 Care Teams Press Setter Relationship Specialty Start Date End Date Kirt Lindsay DO PCP - General 05/02/17 11/22/20 Josué Del Valle MD PhD Medical Oncologist/Supervisor Vendor Quality Medical Oncology 08/26/19 documented as of this encounter
--- OUTSIDE RECORDS SUMMARY | 2024-11-22 11:02 | XMS_ITS | Encounter Summary ---
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 10 pen 6 01/22/2020 0 Basaglar KwikPen U-100 Insulin 100 unit/mL (3 mL) insulin penIndications:Type 2 diabetes mellitus with hyperosmolarity without coma, with long-term current use of insulin (HCC) INJECT 40 UNITS NIGHTLY. 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
--- OUTSIDE RECORDS SUMMARY | 2024-11-22 11:02 | XMS_ITS | Encounter Summary ---
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 [facility] Oncology [facility] [address] 7th [place] [address] [place] [address] Theodora Ruvalcaba, [facility] Qosnz-sguxvg-zncs disease (CMS/HCC) (Primary Dx) Social History Tobacco Use Types Packs/Day Years Used Date Smoking Tobacco: Every Day Smokeless Tobacco: Never Comments:Pt not interested i n smoking cessation program Sex and Gender Information Value Date Recorded Sex Assigned at Not on file 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 Gender Identity Not on file Sexual Orientation Not on file documented as of this encounter Plan of Treatment Not on file documented as of this encounter Visit Diagnoses Diagnosis Sxukl-itxzae-opxa disease (HCC)- Primary documented in this encounter Orders Medications Ordered That Girma ht Not Have Been Administered Count Last Ordered Date First Ordered Date [facility] ruxolitinib (20 18-05-175/INCB [id number]) tablet 5 mg 1 01/25/2020 documented in this encounter 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 Care Teams Control Manager Relationship Specialty Start Date End Date Kirt Lindsay DO PCP - General 05/02/17 11/22/20 Josué Del Valle MD PhD Medical Oncologist/Credit Operations Processor Medical Oncology 08/26/19 documented as of this encounter
--- OUTSIDE RECORDS SUMMARY | 2024-11-22 11:02 | XMS_ITS | Encounter Summary ---
Author Organization [facility] Address [address] [place] [address] Phone Care Team Providers Care Medical Billing Associate Name Role Phone Kirt Lindsay DO Primary Care Provider [phone] Josué Del Valle MD PhD Unavailable [phone] Encounter Details Date Type Department Care Team (Late st Contact Info) Description 11/02/2020 Telephone [facility] Marrow Transplant [address] [facility] [address] 7th Floor, [place] [address] Sylvia Frias RN Social History Tobacco Use Types Packs/Day Years Used Date Smoking Tobacco: Every Day Smokeless Tobacco: Never Comments:Pt not interested i n smoking cessation program Sex and Gender Information Value Date Recorded Sex Assigned at Not on file 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 Returned patient's call, he states that he hasincreased chunkiness and would like to head it off with a prescription for z-leonard. Patient last saw our team in November of last year. 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 Will send a prescription as requested with the understanding that he needs to follow-up with us in November in order to review medications and current status. Patient verbalized understanding and is agreeable with the plan. NOGRAPH OPERATOR documented in this encounter Plan of Treatment Not on file documented as of this encounter Visit Diagnoses Diagnosis Cough- Primary Adbjp-ctzmrc-aylc disease (HCC) documented in this encounter Discontinued Medications Medication Sig Discontinue Reason Start Date End Da te azithromycin (ZITHROMAX) 250 mg tabletIndications:Prophy laxis, Medical Take 1 tablet (250 mg total) by mouth 3 (three) times a week Therapy completed 01/15/2020 11/02/2020 documented as of this encounter 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 Care Teams Medical Billing Associate Relationship Specialty Start Date End Date Kirt Lindsay DO PCP - General 05/02/17 11/22/20 Josué Del Valle MD PhD Medical Oncologist/Quality Assurance Monitor Medical Oncology 08/26/19 documented as of this encounter
--- OUTSIDE RECORDS SUMMARY | 2024-11-22 11:02 | XMS_ITS | Encounter Summary ---
Author Organization [facility] Address [address] [place] [address] Phone Care Team Providers Care Sand Miller Name Role Phone Kirt Lindsay DO Primary Care Provider [phone] Josué Del Valle MD PhD Unavailable [phone] Encounter Details Date Type Department Care Team (Late st Contact Info) Description 01/29/2020 Orders Only [facility] Oncology [address] [facility] [address] 7th [place] [address] [place] [address] Penny Valero RN Type 2 diabetes mellitus with hyperosmolarity without coma, with long-term current use of insulin ([facility]) (Primary Dx) Social History Tobacco Use Types Packs/Day Years Used Date Smoking Tobacco: Every Day Smokeless Tobacco: Never Comments:Pt not interested i n smoking cessation program Sex and Gender Information Value Date Recorded Sex Assigned at Not on file 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 5 pen 5 01/29/2020 1 insulin lispro (HumaLOG) 100 unit/mL insulin penIndications:Type 2 diabetes mellitus with hyperosmolarity without coma, with long-term current use of insulin (HCC) INJECT 20 UNITS TID WITH MEALS PLUS SLIDING SCALE. TDD OF 90 UNITS. 10 pen 6 01/29/2020 1 documented in this encounter Progress Notes * Penny Valero, RN - 01/29/2020 1:45 PM CDT FELISA documented in this encounter Plan of Treatment Not on file documented as of this encounter Visit Diagnoses Diagnosis Type 2 diabetes mellitus with hyperosmolarity without coma, with long-term current use of insulin (HCC)- Primary documented in this encounter Discontinued Medications Medication Sig Discontinue Reason Start Date End Da te Chip More U-100 Insulin 100 unit/mL (3 mL) insulin penIndications:Type 2 diabetes mellitus with hyperosmolarity without coma, with long-term current use of insulin (HCC) INJECT 40 UNITS NIGHTLY. 01/22/2020 01/29/2020 insulin lispro (HumaLOG) 100 unit/mL insulin penIndications:Type 2 diabetes mellitus with hyperosmolarity without coma, with long-term current use of insulin (HCC) INJECT 20 UNITS TID WITH MEALS PLUS SLIDING SCALE. Reorder 01/22/2020 01/29/2020 documented as of this encounter 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 Care Teams Sand Miller Relationship Specialty Start Date End Date Kirt Lindsay DO PCP - General 05/02/17 11/22/20 Josué Del Valle MD PhD Medical Oncologist/Tooling Mechanic Medical Oncology 08/26/19 documented as of this encounter
--- OUTSIDE RECORDS SUMMARY | 2024-11-22 11:02 | XMS_ITS | Encounter Summary ---
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) Comni-vtyzuz-hhnv disease (HCC) 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[facility]) Narcisa Kilgore NP Phone: tel: fax: Nicko Gibson MD [address] [place] [address] Phone: tel: Referral ID Status Reason Start Date Expiration Date V isits Requested Visits Authorized [id number] Closed Specialty Services Required 11/22/2020 05/21/2021 12 12 Encounter Details Date Type Department Care Team (Late st Contact Info) Description 11/23/2020 9:00 AM PAYROLL MASTER Office Visit [facility] [address] [facility] Advanced Medicine 7th Floor, [place] [address] Narcisa Kilgore NP [address] DIV BONE MARROW TRANSPLANT, [address] [place] [address] AML (acute myeloid leukemia) in remission ([facility]/HCC) (Primary Dx); Fiexx-jridiv-zlvf disease ([facility]/HCC); 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[facility]/HCC); Cough; Type 2 diabetes mellitus with hyperosmolarity without coma, with long-term current use of insulin ([facility]/HCC) Social History Tobacco Use Types Packs/Day Years Used Date Smoking Tobacco: Every Day Smokeless Tobacco: Never Tobacco Cessation:Ready to Q uit: No; Counseling Given: Yes Comments:Pt not interested in smoking cessation program Sex and Gender Information Value Date Recorded Sex Assigned at Not on file Legal Sex Male 10:48 AM PAYROLL MASTER Gender Identity Not on file Sexual Orientation Not on file documented as of this encounter Last Filed Vital Signs Vital Sign Reading Time Taken Comments Blood Pressure 158/88 11/23/2020 9:34 AM PAYROLL MASTER 2nd BP Pulse 64 11/23/2020 9:26 AM PAYROLL MASTER Temperature 36.7 ??C (98.1 ??F) 11/23/2020 9:26 AM CS T Respiratory Rate 18 11/23/2020 9:26 AM PAYROLL MASTER Oxygen Saturation 95% 11/23/2020 9:26 AM PAYROLL MASTER Inhaled Oxygen Concentration - - Weight 70.2 kg (154 lb 12.8 oz) 11/23/2020 9:26 AM PAYROLL MASTER Height 178.5 cm (5' 10.28 ) 11/23/2020 9:[address] Body Mass Index 22.04 11/23/2020 9:26 AM PAYROLL MASTER documented in this encounter Ordered Prescriptions Prescription Sig Dispense Quantity Refills Last Filled Start Date End Date ergocalciferol (VITAMIN D) 50,000 unit capsuleIndications:Vi tamin D Deficiency Take 1 capsule (50,000 Units total) by mouth once a week 12 capsule 3 11/23/2020 1 gabapentin (NEURONTIN) 300 mg capsuleIndications:Ty pe 2 diabetes mellitus with hyperosmolarity without coma, with long-term current use of insulin (HCC) Take 1 capsule (300 mg total) by mouth 3 (three) times a day TAKE 1 CAPSULE BY MOUTH FOUR TIMES DAILY 90 capsule 3 11/23/2020 1 azithromycin (ZITHROMAX) 250 mg tabletIndications:Cou gh,Gjich-boxkqu-pous disease (HCC) Take 1 tablet (250 mg total) by mouth daily 2 tablets day 1, then 1 tablet daily x 4. 6 tablet 11/23/2020 1 documented in this encounter Progress Notes * Narcisa Kilgore, ARMEN - 11/23/2020 9:00 AM CST Images from the original note were not included. [facility] DEPARTMENT OF MEDICINE - SECTION OF BMT & LEUKEMIA [address] [place] [address]- PHONE: FAX: PATIENT NAME: BRI LUNDY : 1965 ROSY: 11/23/2020 Patient has a history of AML. 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 TREATMENT HISTORY: 1. Induction with 7+3 and HiDAC consolidation x3. 2. Decitabine maintenance on the [facility] 19473 protocol. 3. Relapsed disease, status post [facility]. 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 TRANSPLANT HISTORY: Status post an allogeneic transplant with busulfan and Cytoxan on the [facility] allogeneic study with hissister, 08/27 match; with day 0 on 11/09/2009. INTERVAL HISTORY: Patient overall doing well. He has productive cough. No f/c/cp/sob. No loss of taste no congestion.No known covid exposures. No evidence of gvhd flare. Lungs stable. ? Last via local pulmonary ? Date unclear. PHYSICAL EXAM: Vitals BP 158/88 (BP Location: Right arm) Pulse 64 Temp 36.7 ??C (98.1 ??F) (Oral) Resp 18 Ht 178.5 cm (5' 10.28 ) Wt 70.2 kg (154 lb 12.8 oz) SpO2 95% BMI 22.04 kg/m?? General: He is alert and oriented [...] aredisplayed. Labs - Hematology Latest Ref Range 12/04/19 01/15/20 11/23/20 WBC 3.8 - 9.8 K/cumm 10.7 (A) 7.9 8.8 Total Hb, POC 13.8 - 17.2 g/dL 12.4 (A) 14.5 13.1 (A) Hct 40.7 - 50.3 % 38.1 (A) 43.4 38.5 (A) Plt 140 - 440 K/cumm 235 267 236 Neutrophil abs 1.8 - 6.6 K/cumm 5.1 6.0 2.8 Lymphocytes, abs 1.2 - 3.3 K/cumm 3.9 (A) 1.4 4.5 (A) (A) Abnormal value Comments are available for some flowsheets but are not being displayed. Chem/LFT Lab History Some values may be hidden. Unless noted otherwise, only the newest values recorded on each date aredisplayed. Labs-Chem/LFT Latest Ref Range 12/04/19 01/15/20 11/23/20 Sodium 135 - 145 mmol/L 137 132 (A) 138 Creatinine 0.80 - 1.30 mg/dL 0.91 0.82 0.83 Bilirubin, total 0.1 - 1.2 mg/dL 0.3 0.3 0.4 AST 10 - 50 Units/L 49 47 37 ALT 7 - 55 Units/L 67 (A) 19 30 CrCl- Actual Body Weight (Cockcroft-Gault) 107.3 111.5 101 Some values recorded on this date have been omitted. Some abnormal values recorded on this date have been omitted. (A) Abnormal value Comments are available for some flowsheets but are not being displayed. MEDICATIONS: Current Outpatient Medications: ??? acyclovir (ZOVIRAX) 400 mg tablet, Take 1 tablet (400 mg total) by mouth every 8 (eight) hours,Disp: 270 tablet, Rfl: 1 ??? atorvastatin (LIPITOR) 40 mg tablet, Take [...] TIMES/DAY, Disp: 1 Device, Rfl: 0 ??? furosemide (LASIX) 20 mg [...] 5 pen, Rfl: 5 ??? insulin lispro (HumaLOG) 100 unit/mL insulin pen, INJECT 20 UNITS [...] Rfl: 1 ??? tacrolimus (PROGRAF) 0.5 mg capsule, Take 1 capsule (0.5 mg total) by mouth every other day., Disp: , Rfl: ??? Trelegy Ellipta 100-62.5-25 mcg inhaler, Inhale 1 puff daily, Disp: 1 each, Rfl: 2 ??? Ventolin HFA 90 mcg/actuation inhaler, Inhale 1-2 puffs every 4 (four) hours as needed for wheezing, Disp: 1 Inhaler, Rfl: 3 ??? voriCONAZOLE (VFEND) 200 mg tablet, Take 1 tablet (200 mg total) by mouth 2 (two) times a day, Disp: 60 tablet, Rfl: 6 ??? Xarelto 20 mg tablet, TAKE 1 TABLET(20 MG) BY MOUTH DAILY, Disp: 30 tablet, Rfl: 1 IMPRESSION/PLAN: 1. Patient with a history of acute myeloid leukemia post an allo transplant days ago. 2. Chronic lpjsl-pyibwq-gedl disease. He Is off Jakafi stopped on his own. He completed cycle 1 and2. January 24 he didn't tack picker drug and MMF 1 g b.i.d., [...] panel, cd 4 and vit d today. 7. Neuropathy. He is on gabapentin 300 four times a day. 8. Congestive heart failure. He has Lasix 20 mg a day. He is scheduled to return to see back in January. Narcisa Kilgore RN, BCFNP Nurse Practitioner In collaboration with Josué Del Valle M.D. Cosigned by Josué Del Valle MD PhD at 11/24/2020 8:48 AM PAYROLL MASTER OLL MASTER OLL MASTER documented in this encounter Nursing Notes * Kari Mcbride NP - 11/23/2020 9:00 AM CST AML s/p fully matched, related ALLO SCT from his sister, Bu/Cy, 11/09/2009, now day +4032 03/2018 - EAP Jakafi HRPO [id number], 5 mg BID ---pt stopped taking after he picked up Cycle 3 (so stopped approximately 01/2020)--OFF STUDY NOW GVHD: MMF 1gm BID, tac 0.5mg every other day, pred 10mg Daily Treatment hx: 1. Induction with 7+3 and HiDAC consolidation x3. 2. Decitabine maintenance on the [facility] 24300 protocol. 3. 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 ?? Hx PE, DVT LE 2012, and DVT IJ 2017 - remains on lifelong anticoag (xeralto) Last ROV 01/15/2020, pt called with respiratory symptoms on 11/02, sent z-leonard. Need to review med list today. - VFend starded 11/22/[address] Del Valle during admission due to persistent use of immunosuppressants-- continue Vfend per Jame today (11/23/20) - Last HgbA1C 12% and BS range 300-400 due to pt noncompliance. - repeat level today with referral to Dr. Gibson. - CD4 & Lipid Panel pending today (add ons) - Vit D level 11/23/20 = 15. Will start weekly ergocalciferol 50,000u. Will need level rechecked in 8weeks. Follow-up: - RTC 02/03 with Cameron Kilgore. Will try to coordinate endocrine consult with Dr. Gibson same day - RTC 11/23/21 with Cameron Kilgore OLL MASTER documented in this encounter Plan of Treatment Scheduled Referrals Name Type Priority Associated Diagnoses Order Schedule Ambulatory referral to Oncology Outpatient Referral Routine 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) Dznqc-eibkwa-kdds disease (CMS/HCC) 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CMS/HCC) Expected: 12/07/2020 (Approximate), Expires: 11/23/2021 documented as of this encounter Results * (ABNORMAL) Vitamin D 25 hydroxy (02/03/2021 12:04 PM CDT) Vitamin D 25-OH 23(L) 30 - 80 ng/mL [facility] Blood specimen (specimen) 02/03/2021 12:04 PM CDT 02/03/2021 12:22 PM CDT Narcisa Kilgore NP LAB BLOOD ORDERABLES Pilar l Result Performing Organization Address [facility] Co de Phone Number [facility] [place] [address] * Tacrolimus level random (02/03/2021 12:04 PM CDT) Pathologist [facility] Tacrolimus random 1.9 ng/mL [facility] Comment: Interpretive Data Testing performed by liquid chromatography-tandem mass spectrometry. ??Therapeutic concentrations vary depending on type of transplanted organ and time elapsed since transplant. ??Typical trough concentrations range from 5-15 ng/mL. ??This test was developed and its performance characteristics determined by the [facility] consistent with CLIA requirements. ??This test has not been cleared or approved by the [place] Food and Drug administration. ??Current interpretive data last reviewed 2020. Blood specimen (specimen) 02/03/2021 12:04 PM CDT 02/03/2021 12:23 PM CDT Narcisa Kilgore BARREL MARKER LAB BLOOD ORDERABLES Pilar l Result Performing Organization Address [facility] Co de Phone Number [facility] Department [place] [address] * Type and screen (02/03/2021 12:04 PM CDT) Ursula, indirect Negative [facility] ABO Rh A Positive [facility] Blood specimen (specimen) 02/03/2021 12:04 PM CDT 02/03/2021 12:24 PM CDT Narrative [facility] - 02/03/2021 1:23 PM CDT Has the patient had Daratumumab or Isatuximab in the past 6 months?->Unknown Narcisa Kilgore NP LAB BLOOD BANK TEST ORDER SUBHA Final Result Performing Organization Address [facility] de Phone Number [facility] [place] [address] * Lactate dehydrogenase (LD) (02/03/2021 12:04 PM CDT) [facility] Lactate dehydrogenase (LDH) 199 100 - 250 Units/L [facility] Comment:Testing performed by : [facility], [address] [place] [phone] Blood specimen (specimen) 02/03/2021 12:04 PM CDT 02/03/2021 12:10 PM CDT Narcisa Kilgore BARREL MARKER LAB BLOOD ORDERABLES Pilar l Result Performing Organization Address [facility] Co de Phone Number [facility] [place] [address] * (ABNORMAL) Comprehensive metabolic panel (02/03/2021 12:04 PM CDT) [facility] Sodium 141 135 - 145 mmol/L [facility] Comment:Testing performed by : [facility], [address] [place] [phone] Potassium, pl 4.3 3.3 - 4.9 mmol/L [facility] Comment:Testing performed by : [facility], [address] [place] [phone] Chloride 102 97 - 110 mmol/L [facility] Comment:Testing performed by : [facility], [address] [place] [phone] CO2 35(H) 22 - 32 mmol/L [facility] Comment:Testing performed by : [facility], [address] [place] [phone] Anion gap 4 2 - 15 mmol/L [facility] Comment:Testing performed by : [facility], [address] [place] [phone] BUN 12 8 - 25 mg/dL [facility] Comment:Testing performed by : [facility], [address] [place] [phone] Creatinine 0.81 0.80 - 1.30 mg/dL [facility] Comment:Testing performed by : [facility], [address] [place] [phone] Glucose 172 70 - 199 mg/dL [facility] [...] was last revised 2017. Testing performed by: [address] [phone] Calcium 10.2 8.5 - 10.3 mg/dL [facility] Comment:Testing performed by : [facility], [address] [place] [phone] Bilirubin, total 0.2 0.1 - 1.2 mg/dL [facility] Comment:Testing performed by : [address] [phone] Protein, pl 7.9 6.5 - 8.5 g/dL [facility] Comment:Testing performed by : [address] [phone] Albumin 4.6 3.5 - 5.0 g/dL [facility] Comment:Testing performed by : [address] [address] Alk phos 176(H) 40 - 130 Units/L [facility] Comment:Testing performed by : [place] [phone] ALT 26 7 - 55 Units/L [facility] Comment:Testing performed by : [address] [phone] AST 22 10 - 50 Units/L [facility] Comment:Testing performed by : [facility] [phone] Blood specimen (specimen) 02/03/2021 12:04 PM CDT 02/03/2021 12:10 PM CDT us Narcisa Kilgore BARREL MARKER LAB BLOOD ORDERABLES Pilar l Result [facility] Department [place] [address] * (ABNORMAL) CBC with auto differential (02/03/2021 12:04 PM CDT) WBC 9.0 3.8 - 9.8 K/cumm [facility] Comment:Testing performed by : [facility], [address] [place] [phone] Hgb 14.5 13.8 - 17.2 g/dL [facility] Comment:Testing performed by : [facility], [address] [place] [phone] Hct 43.0 40.7 - 50.3 % [facility] Comment:Testing performed by : [address] [address] Plt 322 140 - 440 K/cumm [facility] Comment:Testing performed by : [address] [phone] MPV 8.4 6.8 - 10.4 fL [facility] Comment:Testing performed by : [address] [address] RBC 4.14(L) 4.50 - 5.70 M/cumm [facility] Comment:Testing performed by : [address] [address] MCV 103.8(H) 80.0 - 97.6 fL [facility] Comment:Testing performed by : [address] [address] MCH 35.1(H) 26.7 - 33.7 pg [facility] Comment:Testing performed by : [address] [address] MCHC 33.9 32.7 - 35.5 g/dL [facility] Comment:Testing performed by : [facility], [address] [place] [phone] RDW CV 13.7 11.8 - 14.6 % [facility] Comment:Testing performed by : [facility], [address] [place] [phone] NRBC abs 0.02(H) 0.00 - 0.01 K/cumm [facility] Comment:Testing performed by : [facility], [address] [place] [phone] Blood specimen (specimen) 02/03/2021 12:04 PM CDT 02/03/2021 12:10 PM CDT Narcisa Kilgore BARREL MARKER LAB BLOOD ORDERABLES Pilar l Result Performing Organization Address [facility] de Phone Number [facility] [place] [address] * Cytomegalovirus (CMV) DNA PCR, quantitative Blood (02/03/2021 11:47 AM CDT) [facility] CMV DNA Not Detected [facility] Comment: Interpretive Data: The quantifiable range of this assay is 137 IUnits/mL to 9,100,000 IUnits/mL (2.14 log IUnits/mL to 6.96 log IUnits/mL). Testing was performed by the [employer] Ampli[employer]/MICHEL TaqMan CMV Test ([employer] Testing performed at [facility] Current interpretive data was last revised on 17. Blood specimen (specimen) 02/03/2021 11:47 AM CDT 02/03/2021 2:18 PM CDT Narcisa Kilgore NP LAB MICROBIOLOGY - GENERA L ORDERABLES Final Result Performing Organization Address [facility] Co de Phone Number [facility] [place] [address] * (ABNORMAL) Hemoglobin A1c (11/23/2020 9:14 AM PAYROLL MASTER) Hgb A1C 12.1(H) 4.0 - 5.6 % [facility] Estimated Average Glucose 301 mg/dL [facility] Comment: The ADA recommends reporting an estimated Average Glucose (eAG) with all Hemoglobin A1c results using the equation derived from a study of 507 normal and diabetic adults. ??Minority populations were underrepresented and children were not included. ?? (Diabetes Care 31:1950-9061, 2008). ??The eAG is not equivalent to a fasting glucose. Blood specimen (specimen) 11/23/2020 9:14 AM PAYROLL MASTER 11/23/2020 3:16 PM PAYROLL MASTER Narcisa Kilgore NP LAB BLOOD ORDERABLES Pilar armas Result Performing Organization Address City/State/[facility] Co de Phone Number [facility] Department [place] [address] * (ABNORMAL) Lipid panel (11/23/2020 9:14 AM PAYROLL MASTER) Cholesterol 190 30 - 199 mg/dL [facility] Comment: [...] Data was last revised on 2018. Triglycerides 223(H) <=149 mg/dL [facility] Comment: Interpretive Data [...] Data was last revised on 2018. HDL 38(L) >=40 mg/dL [facility] Comment: Interpretive Data Ages < [...] was last revised on 2018. LDL, calculated 107 <=129 mg/dL [facility] Comment: Interpretive Data Ages < or [...] was last revised on 2018. Non-HDL Cholesterol 152 mg/dL [facility] Comment: Interpretive Data Ages [...] was last revised on 2018. Chol/HDL ratio 5 [facility] Blood specimen (specimen) 11/23/2020 9:14 AM PAYROLL MASTER 11/23/2020 11:45 AM PAYROLL MASTER Narcisa Kilgore NP LAB BLOOD ORDERABLES Pilar l Result [facility] Department [place] [address] * (ABNORMAL) T-helper cells (CD4) count (11/23/2020 9:14 AM PAYROLL MASTER) CD4 pct 41 31 - 64 % [facility] Comment:Repeated and verifie d. CD4 Absolute 1,796(H) 365 - 1,294 cells/mcL [facility] Comment:Repeated and verifie d. Blood specimen (specimen) 11/23/2020 9:14 AM PAYROLL MASTER 11/23/2020 3:45 PM PAYROLL MASTER us Narcisa Kilgore NP LAB BLOOD ORDERABLES Pilar pawel Result 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) Viaww-shwxdt-ijfc disease (HCC) Vitamin D deficiency Osteopenia, unspecified location Type 2 diabetes mellitus with hyperosmolarity without coma, with long-term current use of insulin (HCC) documented in this encounter Discontinued Medications Medication Sig Discontinue Reason Start Date End Da te azithromycin (ZITHROMAX) 250 mg tabletIndications:Cough,Gr qpb-ifrdyi-vusg disease (HCC) Take 1 tablet (250 mg total) by mouth daily for 5 days Reorder 11/02/2020 11/23/2020 predniSONE (DELTASONE) 10 mg tabletIndications: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HCC) TAKE 1 TABLET(10 MG) BY MOUTH DAILY 08/12/2020 11/23/2020 ergocalciferol (VITAMIN D) 50,000 unit capsuleIndications:Vitamin D deficiency Take 1 capsule (50,000 Units total) by mouth once a week 01/15/2020 11/23/2020 gabapentin (NEURONTIN) 300 mg capsuleIndications:Type 2 diabetes mellitus with hyperosmolarity without coma, with long-term current use of insulin (HCC) TAKE 1 CAPSULE BY MOUTH FOUR TIMES DAILY Reorder 11/01/2020 11/23/2020 HYDROcodone-acetaminophen (NORCO) 5-325 mg per tabletIndications: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 Doses may be taken without regard to food. 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),Rdwrw-vcfdea-efte disease (HCC),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HCC) TAKE 1 TABLET BY MOUTH EVERY 6 HOURS NEEDED FOR PAIN (MAX OF 3 TABLETS PER DAY) 10/08/2019 11/23/2020 documented as of this encounter Orders Appointment Requests Count Last Ordered Date Fi rst Ordered Date ONCBCN CLINIC APPOINTMENT REQUEST 1 021 ONCBCN LAB APPOINTMENT 1 02/03/2021 documented in this encounter 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 Care Teams Manager Data Center Relationship Specialty Start Date End Date Halie Khan MD [address] [facility] [address] [place] [address] PCP - General Critical Care Med 11/23/20 02/01/21 Josué Del Valle MD PhD Medical Oncologist/Bicycle Technician Medical Oncology 08/26/19 documented as of this encounter
--- OUTSIDE RECORDS SUMMARY | 2024-11-22 11:02 | XMS_ITS | Encounter Summary ---
Author Organization [facility] Address [address] [place] [address] Phone Care Team Providers Care Reconciliation Specialist Name Role Phone Kirt Lindsay DO Primary Care Provider +1- [phone] Josué Del Valle MD PhD Unavailable [phone] Reason for Visit * Reason Onset Date Comments new pt 11/02/2020 Encounter Details Date Type Department Care Team (Late st Contact Info) Description 11/02/2020 Telephone [facility] Ophthalmology [address] [place], [place] [id number] Ravi Hughes MD [address] [id number] new pt Social History Tobacco Use Types Packs/Day Years Used Date Smoking Tobacco: Every Day Smokeless Tobacco: Never Comments:Pt not interested i n smoking cessation program Sex and Gender Information Value Date Recorded Sex Assigned at Not on file Legal Sex Male 10:48 AM SALES RESEARCH ANALYST Gender Identity Not on file Sexual Orientation Not on file documented as of this encounter Miscellaneous Notes * Telephone Encounter - Anjana Pizarro - 11/03/2020 8:27 AM CST Attempted to call pt again, no answer. LVM for pt to call back to make appt if still interested. Hecan be put in first available NEW slot on Dr. Ramos schedule for a cataract eval. S RESEARCH ANALYST * Telephone Encounter - Luz Munoz B.A. - 11/02/2020 1:36 PM SALES RESEARCH ANALYST Thanks! S RESEARCH ANALYST * Telephone Encounter - Anjana Pizarro - 11/02/2020 1:22 PM CST Attempted to call pt to schedule first available new pt slot for cat eval. No answer so LVM for pt to call back and schedule. S RESEARCH ANALYST * Telephone Encounter - Luz Munoz B.A. - 11/02/2020 11:49 AM SALES RESEARCH ANALYST He does. S RESEARCH ANALYST * Telephone Encounter - Anjana Pizarro - 11/02/2020 11:38 AM CST Please advise. Does Saul do cat sx?? S RESEARCH ANALYST * Telephone Encounter - Sonia Vega - 11/02/2020 9:05 AM CST New PT APPT Request: Who pt is being referred to: Saul Reason/Diagnoses: cataracts Referring doctor: NA Referring doctor contact information: NA How soon: first available Transfer of care or 2nd opinion? transfer Were notes requested? NA Additional comments: Ptt called and stated he last saw Dr. Hughes in 2017 and is now interested in going through with cataract sx. 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 Best contact number for pt [phone]. S RESEARCH ANALYST documented in this encounter Plan of Treatment Not on file documented as of this encounter Visit Diagnoses Not on filedocumented in this encounter 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 Care Teams Reconciliation Specialist Relationship Specialty Start Date End Date Kirt Lindsay DO PCP - General 05/02/17 11/22/20 Josué Del Valle MD PhD Medical Oncologist/Broom Machine Operator Medical Oncology 08/26/19 documented as of this encounter
--- OUTSIDE RECORDS SUMMARY | 2024-11-22 11:02 | XMS_ITS | Encounter Summary ---
Author Organization [facility] Address [address] [place] [address] Phone Care Team Providers Care Solution Design And Analysis Manager Name Role Phone Kirt Lindsay DO Primary Care Provider [phone]- [phone] Josué Del Valle MD PhD Unavailable [phone] Encounter Details Date Type Department Care Team (Late st Contact Info) Description 05/10/2020 Telephone [facility] Bone Marrow Transplant [address] [facility] Advanced Medicine 7th Floor, [place] [address] Mellisa Rubalcava RN Social History Tobacco Use Types Packs/Day Years Used Date Smoking Tobacco: Every Day Smokeless Tobacco: Never Comments:Pt not interested i n smoking cessation program Sex and Gender Information Value Date Recorded Sex Assigned at Not on file Legal 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 He will check with his ride to see what day she can take off work to bring him here says he will call us back with a sat or a Saturday that he is available to see josiah. documented in this encounter Plan of Treatment Not on file documented as of this encounter Visit Diagnoses Not on filedocumented in this encounter 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 Care Teams Solution Design And Analysis Manager Relationship Specialty Start Date End Date Kirt Lindsay DO PCP - General 05/02/17 11/22/20 Josué Del Valle MD PhD Medical Oncologist/Research Animal Facility Supervisor Medical Oncology 08/26/19 documented as of this encounter
--- OUTSIDE RECORDS SUMMARY | 2024-11-22 11:02 | XMS_ITS | Encounter Summary ---
Author Organization [facility] Address [address] [place] [address] Phone Care Team Providers Care Marine Cargo Inspector Name Role Phone Kirt Lindsay DO Primary Care Provider [phone]- [phone] Josué Del Valle MD PhD Unavailable [phone] Encounter Details Date Type Department Care Team (Late st Contact Info) Description 11/22/2020 Orders Only [facility] Bone Marrow Transplant [address] [facility] Advanced Medicine 7th Floor, [place] [address] Josué Del Valle MD PhD [address] DIV IM BONE MARROW TRANSPLANT, [address] [place], [place] [id number] 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); Ozvvj-smdehv-pjdl disease (CMS/HCC); 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CMS/HCC) Social History Tobacco Use Types Packs/Day Years Used Date Smoking Tobacco: Every Day Smokeless Tobacco: Never Comments:Pt not interested i n smoking cessation program Sex and Gender Information Value Date Recorded Sex Assigned at Not on file Legal Sex Male 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 Gender Identity Not on file Sexual Orientation Not on file documented as of this encounter Plan of Treatment Not on file documented as of this encounter Results * (ABNORMAL) Vitamin D 25 hydroxy (11/23/2020 9:14 AM 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) Pathologist [facility] Vitamin D 25-OH 15(L) 30 - 80 ng/mL [facility] Blood specimen (specimen) 11/23/2020 9:14 AM 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 11/23/2020 9:51 AM 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 Josué Del Valle MD PhD LAB BLOOD ORDERABLES Fin al Result Performing Organization Address [facility] Co de Phone Number [facility] [place] [address] * Lactate dehydrogenase (LD) (11/23/2020 9:14 AM 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) [facility] Lactate dehydrogenase (LDH) 183 100 - 250 Units/L [facility] Comment:Testing performed by : [facility], [address] [place] [phone] Blood specimen (specimen) 11/23/2020 9:14 AM 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 11/23/2020 9:16 AM 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 Josué Del Valle MD PhD LAB BLOOD ORDERABLES Fin al Result Performing Organization Address [facility] Co de Phone Number [facility] [place] [address] * (ABNORMAL) Comprehensive metabolic panel (11/23/2020 9:14 AM 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) [facility] Sodium 138 135 - 145 mmol/L [facility] Comment:Testing performed by : [facility], [address] [place] [phone] Potassium, pl 4.1 3.3 - 4.9 mmol/L [facility] Comment:Testing performed by : [facility], [address] [place] [phone] Chloride 100 97 - 110 mmol/L [facility] Comment:Testing performed by : [facility], [address] [place] [phone] CO2 32 22 - 32 mmol/L [facility] Comment:Testing performed by : [facility], [address] [place] [phone] Anion gap 6 2 - 15 mmol/L [facility] Comment:Testing performed by : [address] [phone] BUN 10 8 - 25 mg/dL [facility] Comment:Testing performed by : [facility], [address] [place] [phone] Creatinine 0.83 0.80 - 1.30 mg/dL [facility] Comment:Testing performed by : [facility], [address] [place] [phone] Glucose 349(H) 70 - 199 mg/dL [facility] Comment: [...] was last revised 2017. Testing performed by: [facility], [address] [place] [phone] Calcium 9.3 8.5 - 10.3 mg/dL [facility] Comment:Testing performed by : [facility], [address] [place] [phone] Bilirubin, total 0.4 0.1 - 1.2 mg/dL [facility] Comment:Testing performed by : [facility], [address] [place] [phone] Protein, pl 6.7 6.5 - 8.5 g/dL [facility] Comment:Testing performed by : [address] [address] Albumin 3.8 3.5 - 5.0 g/dL [facility] Comment:Testing performed by : [facility], [address] [place] [phone] Alk phos 175(H) 40 - 130 Units/L [facility] Comment:Testing performed by : [facility], [address] [place] [phone] ALT 30 7 - 55 Units/L [facility] Comment:Testing performed by : [facility], [address] [place] [phone] AST 37 10 - 50 Units/L [facility] Comment:Testing performed by : [facility], [address] [place] [phone] Blood specimen (specimen) 11/23/2020 9:14 AM 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 11/23/2020 9:16 AM 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 Josué Del Valle MD PhD LAB BLOOD ORDERABLES Fin al Result Performing Organization Address City/State/[facility] Co de Phone Number [facility] Department [place] [address] * (ABNORMAL) CBC with auto differential (11/23/2020 9:14 AM 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) WBC 8.8 3.8 - 9.8 K/cumm [facility] Comment:Testing performed by : [facility], [address] [place] [phone] Hgb 13.1(L) 13.8 - 17.2 g/dL [facility] Comment:Testing performed by : [facility], [address] [place] [phone] Hct 38.5(L) 40.7 - 50.3 % [facility] Comment:Testing performed by : [facility], [address] [place] [phone] Plt 236 140 - 440 K/cumm [facility] Comment:Testing performed by : [address] [address] MPV 8.2 6.8 - 10.4 fL [facility] Comment:Testing performed by : [facility], [address] [place] [phone] RBC 3.84(L) 4.50 - 5.70 M/cumm [facility] Comment:Testing performed by : [facility], [address] [place] [phone] MCV 100.2(H) 80.0 - 97.6 fL [facility] Comment:Testing performed by : [facility], [address] [place] [phone] MCH 34.1(H) 26.7 - 33.7 pg [facility] Comment:Testing performed by : [facility], [address] [place] [phone] MCHC 34.0 32.7 - 35.5 g/dL [facility] Comment:Testing performed by : [facility], [address] [place] [phone] RDW CV 13.5 11.8 - 14.6 % [facility] Comment:Testing performed by : [facility], [address] [place] [phone] NRBC abs 0.00 0.00 - 0.01 K/cumm [facility] Comment:Testing performed by : [facility], [address] [place] [phone] Blood specimen (specimen) 11/23/2020 9:14 AM 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 11/23/2020 9:16 AM 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 Josué Del Valle MD PhD LAB BLOOD ORDERABLES Fin al Result Performing Organization Address City/State/[facility] Co de Phone Number [facility] Department [place] [address] documented in this encounter Visit Diagnoses Diagnosis 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)- Primary Urymq-apdsbs-hcdh disease (HCC) 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HCC) documented in this encounter 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 Care Teams Marine Cargo Inspector Relationship Specialty Start Date End Date Kirt Lindsay DO PCP - General 05/02/17 11/22/20 Josué Del Valle MD PhD Medical Oncologist/Welfare Eligibility Interviewer Medical Oncology 08/26/19 documented as of this encounter
--- OUTSIDE RECORDS SUMMARY | 2024-11-22 11:02 | XMS_ITS | Encounter Summary ---
Author Organization [facility] Address [address] [place] [address] Phone Care Team Providers Care Multi Share Program Coordinator Name Role Phone Kirt Lindsay DO Primary Care Provider [phone]- [phone] Josué Del Valle MD PhD Unavailable [phone] Encounter Details Date Type Department Care Team (Late st Contact Info) Description 09/07/2020 Telephone [facility] Bone Marrow Transplant [address] [facility] Advanced Medicine 7th Floor, [place] [address] Mellisa Rubalcava RN Social History Tobacco Use Types Packs/Day Years Used Date Smoking Tobacco: Every Day Smokeless Tobacco: Never Comments:Pt not interested i n smoking cessation program Sex and Gender Information Value Date Recorded Sex Assigned at Not on file Legal Sex Male 10:48 AM ACQUISITION 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 Heartrate fluctuating between 170 and 180. Reports he is sitting at home in bed just woke up from a nap. His blood pressure is ranging from 110/94 to 90/72. States it feel like his heart is quivering, pounding out of his chest and beating super fast. I suggested he either call 911 or go to his ER. He is refusing the to call 911 but wants to wait out his symptoms and then decide about the local ER. After being on the phone with him for 15+ minutes His heart rate has come down to the 120's but still feels the same. He still says he is going to stay home and monitor. I also inquired more about him finding a ride to come and se us to see if we can get him back on [facility] Jakafi clinical trial he states he is going to think about that and get back to us when and if he can find a ride documented in this encounter Plan of Treatment Not on file documented as of this encounter Visit Diagnoses Not on filedocumented in this encounter 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 Care Teams Multi Share Program Coordinator Relationship Specialty Start Date End Date Kirt Lindsay DO PCP - General 05/02/17 11/22/20 Josué Del Valle MD PhD Medical Oncologist/Wafer Machine Operator Medical Oncology 08/26/19 documented as of this encounter
--- OUTSIDE RECORDS SUMMARY | 2024-11-22 11:02 | XMS_ITS | Encounter Summary ---
Author Organization [facility] Address [address] [facility] [address] [place] [address] Phone Care Team Providers Care Director Inbound Sales Name Role Phone Kirt Lindsay DO Primary Care Provider [phone]- [phone] Josué Del Valle MD PhD Unavailable [phone] Reason for Visit * Reason Onset Date Comments [facility] 09/25/2020 Script for insul in supplies Encounter Details Date Type Department Care Team (Late st Contact Info) Description 09/25/2020 Telephone [facility] Endocrinology Metabolism and Lipid [address] [facility] Advanced Medicine 13th [place] [address] [place] [address] Janiya Chilel CMA [facility] (Script for insulin supplies) Social History Tobacco Use Types Packs/Day Years Used Date Smoking Tobacco: Every Day Smokeless Tobacco: Never Comments:Pt not interested i n smoking cessation program Sex and Gender Information Value Date Recorded Sex Assigned at Not on file Legal Sex Male 10:48 AM DIE DESIGNER APPRENTICE Gender Identity Not on file Sexual Orientation Not on file documented as of this encounter Miscellaneous Notes * Telephone Encounter - Janiya Chilel CMA - 09/25/2020 2:34 PM DIE DESIGNER APPRENTICE Placed [facility] script renewal in providers box for signature. DESIGNER APPRENTICE documented in this encounter Plan of Treatment Not on file documented as of this encounter Visit Diagnoses Not on filedocumented in this encounter 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 Care Teams Director Inbound Sales Relationship Specialty Start Date End Date Kirt Lindsay DO PCP - General 05/02/17 11/22/20 Josué Del Valle MD PhD Medical Oncologist/Public Health Professor Medical Oncology 08/26/19 documented as of this encounter
--- OUTSIDE RECORDS SUMMARY | 2024-11-22 11:02 | XMS_ITS | Encounter Summary ---
Author Organization [facility] Address [address] [place] [address] Phone Care Team Providers Care It Program Manager Name Role Phone Kirt Lindsay DO Primary Care Provider [phone]- [phone] Josué Del Valle MD PhD Unavailable [phone] Encounter Details Date Type Department Care Team (Late st Contact Info) Description 01/25/2020 Telephone [facility] Bone Marrow Transplant [address] [facility] Advanced Medicine 7th Floor, [place] [address] Mellisa Rubalcava RN Social History Tobacco Use Types Packs/Day Years Used Date Smoking Tobacco: Every Day Smokeless Tobacco: Never Comments:Pt not interested i n smoking cessation program Sex and Gender Information Value Date Recorded Sex Assigned at Not on file Legal Sex Male 10:48 AM PHOTORESIST PRINTER Gender Identity Not on file Sexual Orientation Not on file documented as of this encounter Miscellaneous Notes * Telephone Encounter - Mellisa Rubalcava RN - 01/25/2020 4:31 PM CDT Needing to speak with patient to confirm address and that he will be home to receive Jakafi. For study pharmacy We have placed a few calls today at different times with no luck. Unfortunately it doesn???t look like we will be able to ship to patient for delivery tomorrow. Sabrina or Mellisa, would you be able to let IDS know next time you hear from this patient? If you???re able to catch him, would you also be able to confirm his home address is still accurate and he would be home between the hours of 10 AM - 2 PM to sign for the package the day following contact? With this confirmation, we would be able to ship. Let me know if there is anything I can do to help. documented in this encounter Plan of Treatment Not on file documented as of this encounter Visit Diagnoses Not on filedocumented in this encounter 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 Care Teams It Program Manager Relationship Specialty Start Date End Date Kirt Lindsay DO PCP - General 05/02/17 11/22/20 Josué Del Valle MD PhD Medical Oncologist/Patient Financial Counselor Medical Oncology 08/26/19 documented as of this encounter
--- OUTSIDE RECORDS SUMMARY | 2024-11-22 11:02 | XMS_ITS | Encounter Summary ---
Author Organization [facility] Address [address] [place] [address] Phone Care Team Providers Care Human Resources Operations Specialist Name Role Phone Kirt Lindsay DO Primary Care Provider [phone]- [phone] Josué Del Valle MD PhD Unavailable [phone] Encounter Details Date Type Department Care Team (Late st Contact Info) Description 04/04/2020 Telephone [facility] Bone Marrow Transplant [address] [facility] Advanced Medicine 7th Floor, [place] [address] Mellisa Rubalcava RN Social History Tobacco Use Types Packs/Day Years Used Date Smoking Tobacco: Every Day Smokeless Tobacco: Never Comments:Pt not interested i n smoking cessation program Sex and Gender Information Value Date Recorded Sex Assigned at Not on file Legal Sex Male 10:48 AM TELEPHONE DIRECTORY DISTRIBUTOR DRIVER Gender Identity Not on file Sexual Orientation Not on file documented as of this encounter Miscellaneous Notes * Telephone Encounter - Mellisa Rubalcava RN - 05/10/2020 9:52 AM CDT Brady called me back today. He left a voicemail saying he wants more jakafi. Says he last took drug sometime in january, he says its been so long he doesn???t remember. He states he called me back several times and left message with the call center to let me know thathis address is stil the same and that he wanted us to ship him drug. No one ever gave me those messages of course. He said at this time he has no way to get to us, doesn't have transpotation, said he would reach out when he has a ride. * Telephone Encounter - Mellisa Rubalcava RN - 04/04/2020 2:43 PM CDT Left another message for patient to call us back about his Jakafi prescription documented in this encounter Plan of Treatment Not on file documented as of this encounter Visit Diagnoses Not on filedocumented in this encounter 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 Care Teams Human Resources Operations Specialist Relationship Specialty Start Date End Date Kirt Lindsay DO PCP - General 05/02/17 11/22/20 Josué Del Valle MD PhD Medical Oncologist/Ambulatory Analyst Medical Oncology 08/26/19 documented as of this encounter
--- OUTSIDE RECORDS SUMMARY | 2024-11-22 11:02 | XMS_ITS | Encounter Summary ---
Author Organization [facility] Address [address] [place] [address] Phone Care Team Providers Care First Press Operator Name Role Phone Kirt Lindsay DO Primary Care Provider [phone] Josué Del Valle MD PhD Unavailable [phone] Encounter Details Date Type Department Care Team (Late st Contact Info) Description 01/22/2020 Orders Only [facility] Oncology [address] [facility] Advanced Medicine 7th [place] [address] [place] [address] Eneida Gibson MD [address] [place] [address] Type 2 diabetes mellitus with hyperosmolarity without coma, with long-term current use of insulin ([facility]) (Primary Dx) Social History Tobacco Use Types Packs/Day Years Used Date Smoking Tobacco: Every Day Smokeless Tobacco: Never Comments:Pt not interested i n smoking cessation program Sex and Gender Information Value Date Recorded Sex Assigned at Not on file Legal Sex Male 10:48 AM SHAREPOINT DEVELOPER Gender Identity Not on file Sexual Orientation Not on file documented as of this encounter Plan of Treatment Not on file documented as of this encounter Visit Diagnoses Diagnosis Type 2 diabetes mellitus with hyperosmolarity without coma, with long-term current use of insulin (HCC)- Primary documented in this encounter 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 Care Teams First Press Operator Relationship Specialty Start Date End Date Kirt Lindsay DO PCP - General 05/02/17 11/22/20 Josué Del Valle MD PhD Medical Oncologist/Marine Steward Medical Oncology 08/26/19 documented as of this encounter
--- OUTSIDE RECORDS SUMMARY | 2024-11-22 11:02 | XMS_ITS | Encounter Summary ---
Author Organization [facility] Address [address] [place] [address] Phone Care Team Providers Care Supervisor Coil Winding Name Role Phone Kirt Lindsay DO Primary Care Provider [phone] Josué Del Valle MD PhD Unavailable [phone] Encounter Details Date Type Department Care Team (Late st Contact Info) Description 01/21/2020 Orders Only [facility] Bone Marrow Transplant [address] [facility] Advanced Medicine 7th [place], [place] [address] Josué Del Valle MD PhD [address] DIV IM BONE MARROW TRANSPLANT[address] [place] [address] Buqbc-kxuntq-anei disease (CMS/HCC) (Primary Dx) Social History Tobacco Use Types Packs/Day Years Used Date Smoking Tobacco: Every Day Smokeless Tobacco: Never Comments:Pt not interested i n smoking cessation program Sex and Gender Information Value Date Recorded Sex Assigned at Not on file Legal Sex Male 10:48 AM LOGGER ALL ROUND Gender Identity Not on file Sexual Orientation Not on file documented as of this encounter Plan of Treatment Not on file documented as of this encounter Visit Diagnoses Diagnosis Mzytp-csozoo-qmci disease (HCC)- Primary documented in this encounter 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 Care Teams Supervisor Coil Winding Relationship Specialty Start Date End Date Kirt Lindsay DO PCP - General 05/02/17 11/22/20 Josué Del Valle MD PhD Medical Oncologist/Business Intelligence Etl Developer Medical Oncology 08/26/19 documented as of this encounter
--- OUTSIDE RECORDS SUMMARY | 2024-11-22 11:02 | XMS_ITS | Encounter Summary ---
Author Organization [facility] Address [address] [place] [address] Phone Care Team Providers Care Silverer Name Role Phone Kirt Lindsay DO Primary Care Provider [phone] Josué Del Valle MD PhD Unavailable [phone] Encounter Details Date Type Department Care Team (Late st Contact Info) Description 08/08/2020 Telephone [facility] Ophthalmology [address] 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 Hughes's schedule. documented in this encounter Plan of Treatment Not on file documented as of this encounter Visit Diagnoses Not on filedocumented in this encounter 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 Care Teams Silverer Relationship Specialty Start Date End Date Kirt Lindsay DO PCP - General 05/02/17 11/22/20 Josué Del Valle MD PhD Medical Oncologist/Health Policy Analyst Medical Oncology 08/26/19 documented as of this encounter
--- OUTSIDE RECORDS SUMMARY | 2024-11-22 11:02 | XMS_ITS | Encounter Summary ---
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 No Please select the performing region: [facility] (All Locations) [[id number]] Please select the performing department: [facility] 7 [[id number]] To provider: YOLANDA GARCIA [[id number]] # of visits: 12 ER 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 Reason for Visit * Consultation (Routine) - Closed Specialty Diagnoses / Procedures Referred By Contac t Referred To Contact Oncology Diagnoses 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HCC) 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) Procedures ONCBCN ARM DRAW APPT ONC LAB ONLY [facility] Oncology [facility] 7th [place] [address] [place] [address] Phone: tel: Yolanda Garcia MD [address] [place] [address] Phone: tel: fax: Referral ID Status Reason Start Date Expiration Date V isits Requested Visits Authorized [id number] Closed Specialty Services Required 11/22/2020 05/21/2021 12 12 Encounter Details Date Type Department Care Team (Late st Contact Info) Description 11/23/2020 8:30 AM HALVER 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 Lab [facility] Oncology [facility] 7th [place] [address] [place] [address] 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CMS/HCC); AML (acute myeloid leukemia) in remission ([facility]/HCC); Type 2 diabetes mellitus with hyperosmolarity without coma, with long-term current use of insulin ([facility]/HCC) Social History Tobacco Use Types Packs/Day Years Used Date Smoking Tobacco: Every Day Smokeless Tobacco: Never Comments:Pt not interested i n smoking cessation program Sex and Gender Information Value Date Recorded Sex Assigned at Not on file Legal Sex Male 10:48 AM HALVER 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 Gender Identity Not on file Sexual Orientation Not on file documented as of this encounter Plan of Treatment Scheduled Referrals Name Type Priority Associated Diagnoses Order Schedule Ambulatory referral to Oncology Outpatient Referral Routine 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CMS/HCC) 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) Expected: 12/07/2020 (Approximate), Expires: 11/23/2021 documented as of this encounter Procedures Procedure Name Priority Date/Time Associated Diagnosis Comments DIFFERENTIAL AUTO Routine 11/23/2020 9:1 4 AM HALVER 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) 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CMS/HCC) CBC WITH AUTO DIFFERENTIAL Routine 11/23/2020 9:14 AM HALVER 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) 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CMS/HCC) VITAMIN D 25 HYDROXY Routine 11/23/2020 9:14 AM HALVER 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) 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CMS/HCC) T-HELPER CELLS (CD4) COUNT Routine 11/23/2020 9:14 AM HALVER 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) 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CMS/HCC) Type 2 diabetes mellitus with hyperosmolarity without coma, with long-term current use of insulin (CMS/HCC) LACTATE DEHYDROGENASE Routine 11/23/2020 9:14 AM HALVER 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) 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CMS/HCC) HEMOGLOBIN A1C Routine 11/23/2020 9:14 AM HALVER 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) 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[facility]/HCC) Type 2 diabetes mellitus with hyperosmolarity without coma, with long-term current use of insulin ([facility]/HCC) IGG Routine 11/23/2020 9:14 AM HALVER 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CMS/HCC) LIPID PANEL Routine 11/23/2020 9:14 AM HALVER 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) 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CMS/HCC) Type 2 diabetes mellitus with hyperosmolarity without coma, with long-term current use of insulin ([facility]/HCC) COMPREHENSIVE METABOLIC PANEL Routine 11/23/2020 9:14 AM HALVER 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) 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CMS/HCC) documented in this encounter Results * (ABNORMAL) T-helper cells (CD4) count (11/23/2020 9:14 AM HALVER 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) CD4 pct 41 31 - 64 % [facility] Comment:Repeated and verifie d. CD4 Absolute 1,796(H) 365 - 1,294 cells/mcL [facility] Comment:Repeated and verifie d. Blood specimen (specimen) 11/23/2020 9:14 AM HALVER 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 11/23/2020 3:45 PM HALVER 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 us Narcisa Kilgore NP LAB BLOOD ORDERABLES Pilar armas Result ZULE[facility] Department [place] [address] * (ABNORMAL) Lipid panel (11/23/2020 9:14 AM HALVER 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) Cholesterol 190 30 - 199 mg/dL ZULEMA [...] revised on 2018. HDL 38(L) >=40 mg/dL [facility] Comment: Interpretive Data Ages < or = [...] 2018. LDL, calculated 107 <=129 mg/dL [facility] Comment: Interpretive Data Ages < or = [...] on 2018. Non-HDL Cholesterol 152 mg/dL [facility] Comment: Interpretive Data Ages < or = [...] last revised on 2018. Chol/HDL ratio 5 [facility] Blood specimen (specimen) 11/23/2020 9:14 AM HALVER 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 11/23/2020 11:45 AM HALVER 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 us Narcisa Kilgore NP LAB BLOOD ORDERABLES Pilar armas Result [facility] Department [place] [address] * (ABNORMAL) Hemoglobin A1c (11/23/2020 9:14 AM HALVER 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) Hgb A1C 12.1(H) 4.0 - 5.6 % [facility] Estimated Average Glucose 301 mg/dL [facility] Comment: The ADA recommends reporting an estimated Average Glucose (eAG) with all Hemoglobin A1c results using the equation derived from a study of 507 normal and diabetic adults. ??Minority populations were underrepresented and children were not included. ?? (Diabetes Care 31:8825-9394, 2008). ??The eAG is not equivalent to a fasting glucose. Blood specimen (specimen) 11/23/2020 9:14 AM HALVER 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 11/23/2020 3:16 PM HALVER 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 Narcisa Kilgore ISSUING OPERATOR LAB BLOOD ORDERABLES Pilar l Result [facility] Department [place] [address] * (ABNORMAL) Differential, auto (11/23/2020 9:14 AM HALVER 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) Neutrophil abs 2.8 1.8 - 6.6 K/cumm [facility] Comment:Testing performed by : [facility], [address] [place] [phone] Lymphocyte abs 4.5(H) 1.2 - 3.3 K/cumm [facility]ER [facility] Comment:Testing performed by : [facility], [address] [place] [phone] Monocyte abs 0.8 0.2 - 1.2 K/cumm [facility]J Comment:Testing performed by : [facility], [address] [place] [phone] Eosinophil abs 0.7(H) 0.0 - 0.5 K/cumm [facility] BJ Comment:Testing performed by : [facility], [address] [place] [phone] Basophil abs 0.1 0.0 - 0.2 K/cumm [facility] Comment:Testing performed by : [facility], [address] [place] [phone] Neutrophil pct 31.6 % [facility] Comment: Interpretive Data Percent cell count reference ranges are not reported, since discordance with absolute values may lead to misinterpretation of CBC data. Current Interpretive Data was last revised on 2018. Testing performed by: [facility], [address] [place] [phone] Lymphocyte pct 50.7 % [facility] Comment: Interpretive Data Percent cell count reference ranges are not reported, since discordance with absolute values may lead to misinterpretation of CBC data. Current Interpretive Data was last revised on 2018. Testing performed by: [facility], [address] [place] [phone] Monocyte pct 8.6 % [facility] DENT Comment:Testing performed by : [facility], [address] [place] [phone] Eosinophil pct 7.8 % [facility]ENT Comment:Testing performed by : [facility], [address] [place] [phone] Basophil pct 1.3 % [facility] Comment:Testing performed by : [address] [phone] Blood specimen (specimen) 11/23/2020 9:14 AM HALVER 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 11/23/2020 9:16 AM HALVER 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 Josué Del Valle MD PhD LAB BLOOD ORDERABLES Fin al Result [facility] Department [place] [address] * (ABNORMAL) CBC with auto differential (11/23/2020 9:14 AM HALVER 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) WBC 8.8 3.8 - 9.8 K/cumm [facility] Comment:Testing performed by : [facility], [address] [place] [phone] Hgb 13.1(L) 13.8 - 17.2 g/dL [facility]ENT Comment:Testing performed by : [facility], [address] [place] [phone] Hct 38.5(L) 40.7 - 50.3 % [facility] DENT Comment:Testing performed by : [facility], [address] [place] [phone] Plt 236 140 - 440 K/cumm [facility] DENT Comment:Testing performed by : [address] [phone] MPV 8.2 6.8 - 10.4 fL [facility] Comment:Testing performed by : [facility], [address] [place] [phone] RBC 3.84(L) 4.50 - 5.70 M/cumm [facility]ENT Comment:Testing performed by : [facility], [address] [place], [place] [phone] MCV 100.2(H) 80.0 - 97.6 fL [facility] DENT Comment:Testing performed by : [facility], [address] [place] [phone] MCH 34.1(H) 26.7 - 33.7 pg [facility] DENT Comment:Testing performed by : [facility], [address] [place] [phone] MCHC 34.0 32.7 - 35.5 g/dL [facility] DENT Comment:Testing performed by : [facility], [address] [place] [phone] RDW CV 13.5 11.8 - 14.6 % [facility] Comment:Testing performed by : [facility], [address] [place] [phone] NRBC abs 0.00 0.00 - 0.01 K/cumm [facility] Comment:Testing performed by : [facility], [address] [place] [phone] Blood specimen (specimen) 11/23/2020 9:14 AM HALVER 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 11/23/2020 9:16 AM HALVER 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 Josué Del Valle MD PhD LAB BLOOD ORDERABLES Fin al Result [facility] Department [place] [address] * (ABNORMAL) Comprehensive metabolic panel (11/23/2020 9:14 AM HALVER 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) Sodium 138 135 - 145 mmol/L [facility] DENT Comment:Testing performed by : [address] [phone] Potassium, pl 4.1 3.3 - 4.9 mmol/L [facility] DENT Comment:Testing performed by : [facility], [address] [place] [phone] Chloride 100 97 - 110 mmol/L [facility] Comment:Testing performed by : [facility], [address] [place] [phone] CO2 32 22 - 32 mmol/L [facility] Comment:Testing performed by : [facility], [address] [place] [phone] Anion gap 6 2 - 15 mmol/L [facility] Comment:Testing performed by : [facility], [address] [place] [phone] BUN 10 8 - 25 mg/dL [facility] Comment:Testing performed by : [facility], [address] [place] [phone] Creatinine 0.83 0.80 - 1.30 mg/dL [facility] Comment:Testing performed by : [address] [address] Glucose 349(H) 70 - 199 mg/dL CERNER [...] last revised 2017. Testing performed by: [facility], [address] [place] [phone] Calcium 9.3 8.5 - 10.3 mg/dL [facility] Comment:Testing performed by : [facility], [address] [place] [phone] Bilirubin, total 0.4 0.1 - 1.2 mg/dL [facility] Comment:Testing performed by : [address] [phone] Protein, pl 6.7 6.5 - 8.5 g/dL [facility] Comment:Testing performed by : [facility], [address] [place] [phone] Albumin 3.8 3.5 - 5.0 g/dL [facility] Comment:Testing performed by : [facility], [address] [place] [phone] Alk phos 175(H) 40 - 130 Units/L [facility] Comment:Testing performed by : [facility], [address] [place] [phone] ALT 30 7 - 55 Units/L [facility] Comment:Testing performed by : [facility], [address] [place] [phone] AST 37 10 - 50 Units/L [facility] Comment:Testing performed by : [facility], [address] [place] [phone] Blood specimen (specimen) 11/23/2020 9:14 AM HALVER 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 11/23/2020 9:16 AM HALVER 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 Josué Del Valle MD PhD LAB BLOOD ORDERABLES Fin al Result Performing Organization Address City/[facility] de Phone Number [facility] [employer] [place] [phone] * Lactate dehydrogenase (LD) (11/23/2020 9:14 AM HALVER 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) Lactate dehydrogenase (LDH) 183 100 - 250 Units/L [facility] Comment:Testing performed by : [facility], [address] [place] [phone] Blood specimen (specimen) 11/23/2020 9:14 AM HALVER 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 11/23/2020 9:16 AM HALVER 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 Josué Del Valle MD PhD LAB BLOOD ORDERABLES Fin al Result Performing Organization Address City/[facility]/ZIP Co de Phone Number [facility] [place] [address] * (ABNORMAL) Vitamin D 25 hydroxy (11/23/2020 9:14 AM HALVER 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) Pathologist [facility] Vitamin D 25-OH 15(L) 30 - 80 ng/mL [facility] Blood specimen (specimen) 11/23/2020 9:14 AM HALVER 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 11/23/2020 9:51 AM HALVER 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 Josué Del Valle MD PhD LAB BLOOD ORDERABLES Fin al Result Performing Organization Address City/[facility] Co de Phone Number [facility] Department of [place] [address] * IgG (11/23/2020 9:14 AM HALVER 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) [facility] Immunoglobulin G 1,048.0 700.0 - 1,600.0 mg/dL [facility] Blood specimen (specimen) 11/23/2020 9:14 AM HALVER 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 11/23/2020 9:51 AM HALVER 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 Josué Del Valle MD PhD LAB BLOOD ORDERABLES Fin al Result Performing Organization Address [facility] de Phone Number [facility] [place] [address] documented in this encounter Visit Diagnoses Diagnosis [...] documented as of this encounter Care Teams Yoga Coordinator Relationship Specialty Start Date End Date Halie Khan MD [address] [facility] [address] [place] [address] PCP - General Critical Care Med 11/23/20 02/01/21 Josué Del Valle MD PhD Medical Oncologist/Bulk Mail Clerk Medical Oncology 08/26/19 documented as of this encounter
--- OUTSIDE RECORDS SUMMARY | 2024-11-22 11:02 | XMS_ITS | Encounter Summary ---
Author Organization [facility] Address [address] [place] [address] Phone Care Team Providers Care Information Security Engineer Name Role Phone Kirt Lindsay DO Primary Care Provider [phone]- [phone] Josué Del Valle MD PhD Unavailable Encounter Details Date Type Department Care Team (Late st Contact Info) Description 06/30/2020 Orders Only [facility] Oncology [address] [facility] Advanced Medicine 7th [place] [address] [place] [address] Eneida Gibson MD [address] [place] [address] Type 2 diabetes mellitus (CMS/HCC) (Primary Dx) Social History Tobacco Use Types Packs/Day Years Used Date Smoking Tobacco: Every Day Smokeless Tobacco: Never Comments:Pt not interested i n smoking cessation program Sex and Gender Information Value Date Recorded Sex Assigned at Not on file Legal Sex Male 10:48 AM BUTTON SAWYER Gender Identity Not on file Sexual Orientation Not on file documented as of this encounter Plan of Treatment Not on file documented as of this encounter Visit Diagnoses Diagnosis Type 2 diabetes mellitus (HCC)- Primary documented in this encounter 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
--- OUTSIDE RECORDS SUMMARY | 2024-11-22 11:02 | XMS_ITS | Encounter Summary ---
Author Organization [facility] Address [address] [place] [address] Phone Care Team Providers Care Business Office Technology Instructor Name Role Phone Josué Del Valle MD PhD Unavailable Halie Khan MD Primary Care Provider [phone] Encounter Details Date Type Department Care Team (Late st Contact Info) Description 11/23/2020 Telephone [facility] Bone Marrow Transplant [address] [facility] Advanced Medicine 7th Floor, [place] [address] Kari Mcbride NP [address] [place] [address] Social History Tobacco Use Types Packs/Day Years Used Date Smoking Tobacco: Every Day Smokeless Tobacco: Never Comments:Pt not interested i n smoking cessation program Sex and Gender Information Value Date Recorded Sex Assigned at Not on file Legal Sex Male 10:48 AM LIEUTENANT GOVERNOR Gender Identity Not on file Sexual Orientation Not on file documented as of this encounter Miscellaneous Notes * Telephone Encounter - Kari Mcbride NP - 11/23/2020 3:40 PM LIEUTENANT GOVERNOR Attempted to reach patient for update following office visit with Cameron Kilgore NP today. Left voice message stating new script for ergocalciferol sent to local [facility] and to remain on all other medications. Also stated we were scheduling him with ROV with Cameron Kilgore 02-03 with an attempt to obtain consult with Dr. Gibson same day. Stated we would mail updated itinerary, but also to keep eye on MyChart changes. Requested call back or BemDiretohart message confirming he received this message. TENANT GOVERNOR documented in this encounter Plan of Treatment Not on file documented as of this encounter Visit Diagnoses Not on filedocumented in this encounter 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 Care Teams Business Office Technology Instructor Relationship Specialty Start Date End Date Halie Khan MD [address] [address] PCP - General Critical Care Med 11/23/20 02/01/21 Josué Del Valle MD PhD Medical Oncologist/Slasher Sawyer Medical Oncology 08/26/19 documented as of this encounter
--- OUTSIDE RECORDS SUMMARY | 2024-11-22 11:02 | XMS_ITS | Encounter Summary ---
Author Organization [facility] Address [address] [place] [address] Phone Care Team Providers Care Antenna Machine Operator Name Role Phone Kirt Lindsay DO Primary Care Provider [phone]- [phone] Josué Del Valle MD PhD Unavailable Reason for Visit * Reason Onset Date Comments needs appointment 11/01/[address] [facility] Dr. Niño or LAMINATION BUILDER Encounter Details Date Type Department Care Team (Late st Contact Info) Description 11/01/2020 Telephone [facility] Endocrinology Metabolism and Lipid [address] [facility] Advanced Medicine 13th [place] [address] [place] [address] Mala Hernandez RN needs appointment (Needs appt with Dr. Niño or LAMINATION BUILDER) Social History Tobacco Use Types Packs/Day Years Used Date Smoking Tobacco: Every Day Smokeless Tobacco: Never Comments:Pt not interested i n smoking cessation program Sex and Gender Information Value Date Recorded Sex Assigned at Not on file Legal Sex Male 10:48 AM INTERNET MARKETING STRATEGIST Gender Identity Not on file Sexual Orientation Not on file documented as of this encounter Miscellaneous Notes * Telephone Encounter - Mala Hernandez RN - 11/01/2020 9:16 AM INTERNET MARKETING STRATEGIST Sending message through my chart that not refilling lidocaine 5% ointment. He needs an appointment.Not seen in 5 years. RNET MARKETING STRATEGIST documented in this encounter Plan of Treatment Not on file documented as of this encounter Visit Diagnoses Not on filedocumented in this encounter 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 Care Teams Antenna Machine Operator Relationship Specialty Start Date End Date Kirt Lindsay DO PCP - General 05/02/17 11/22/20 Josué Del Valle MD PhD Medical Oncologist/Diamond Assorter Medical Oncology 08/26/19 documented as of this encounter
--- OUTSIDE RECORDS SUMMARY | 2024-11-22 11:02 | XMS_ITS | Encounter Summary ---
Author Organization [facility] Address [address] [place] [address] Phone Care Team Providers Care Lead Producer Name Role Phone Kirt Lindsay DO Primary Care Provider [phone]- [phone] Josué Del Valle MD PhD Unavailable [phone] Encounter Details Date Type Department Care Team (Late st Contact Info) Description 01/18/2020 Orders Only [facility] [address] [facility] Advanced Medicine 7th [place] [address] [place] [address] Eneida Gibson MD [address] [place] [address] Type 2 diabetes mellitus with hyperosmolarity without coma, with long-term current use of insulin ([facility]) (Primary Dx) Social History Tobacco Use Types Packs/Day Years Used Date Smoking Tobacco: Every Day Smokeless Tobacco: Never Comments:Pt not interested i n smoking cessation program Sex and Gender Information Value Date Recorded Sex Assigned at Not on file Legal Sex Male 10:48 AM ARTIFICIAL STONE SETTER Gender Identity Not on file Sexual Orientation Not on file documented as of this encounter Ordered Prescriptions Prescription Sig Dispense Quantity Refills Last Filled Start Date End Date blood-glucose sensor (Dexcom G6 Sensor) deviceIndications:Typ e 2 diabetes mellitus with hyperosmolarity without coma, with long-term current use of insulin (HCC) TO CHECK BLOOD SUGARS 4 TIMES/DAY 1 Device 6 01/18/2020 1 blood-glucose transmitter (Dexcom G6 Transmitter) deviceIndications:Typ e 2 diabetes mellitus with hyperosmolarity without coma, with long-term current use of insulin (HCC) FOR TESTING BLOOD SUGAR 4 TIMES/DAY 1 Device 01/18/2020 1 documented in this encounter Plan of Treatment [...] documented as of this encounter Care Teams Lead Producer Relationship Specialty Start Date End Date Kirt Lindsay DO PCP - General 05/02/17 11/22/20 Josué Del Valle MD PhD Medical Oncologist/Automobile Appraiser Medical Oncology 08/26/19 documented as of this encounter
--- OUTSIDE RECORDS SUMMARY | 2024-11-22 11:03 | XMS_ITS | Encounter Summary ---
Author Organization [facility] Address [address] [place] [address] Phone Care Team Providers Care Systems Development Consultant Name Role Phone Kirt Lindsay DO Primary Care Provider [phone]- [phone] Josué Del Valle MD PhD Unavailable [phone] Encounter Details Date Type Department Care Team (Late st Contact Info) Description 11/30/2019 Telephone [facility] Bone Marrow Transplant [address] [facility] Advanced Medicine 7th Floor, [place] [address] Mellisa Rubalcava RN Social History Tobacco Use Types Packs/Day Years Used Date Smoking Tobacco: Every Day Smokeless Tobacco: Never Comments:Pt not interested i n smoking cessation program Sex and Gender Information Value Date Recorded Sex Assigned at Not on file Legal Sex Male 10:48 AM TIMBER TREATMENT PLANT OPERATOR Gender Identity Not on file Sexual Orientation Not on file documented as of this encounter Miscellaneous Notes * Telephone Encounter - Mellisa Rubalcava RN - 11/30/2019 3:13 PM TIMBER TREATMENT PLANT OPERATOR D/C Date: 11-28-19 [facility] home Issues since Discharge: none New equipment: none New Treatment: EAP Jakafi New Medications: Received all discharge medications: yes Issues with discharge planning: no Reviewed next appointment: yes Did you schedule as Transitional Care Visit? yes Is the patient on a research study with a research oral medication? yes HRPO#: [id number] Last date research oral medication taken? 11-28-19 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 continuation of dosing Review the correct dose prescribed, if currently taking? yes ER TREATMENT PLANT OPERATOR ER TREATMENT PLANT OPERATOR documented in this encounter Plan of Treatment Not on file documented as of this encounter Visit Diagnoses Not on filedocumented in this encounter 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 Care Teams Systems Development Consultant Relationship Specialty Start Date End Date Kirt Lindsay DO PCP - General 05/02/17 11/22/20 Josué Del Valle MD PhD Medical Oncologist/Life Science Taxonomist Medical Oncology 08/26/19 documented as of this encounter
--- OUTSIDE RECORDS SUMMARY | 2024-11-22 11:03 | XMS_ITS | Encounter Summary ---
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 Gender Identity Not on file Sexual Orientation Not on file documented as of this encounter Plan of Treatment Not on file documented as of this encounter Visit Diagnoses Not on filedocumented in this encounter 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
--- OUTSIDE RECORDS SUMMARY | 2024-11-22 11:03 | XMS_ITS | Encounter Summary ---
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 [address] [facility] Advanced Medicine 7th Floor, [place] [address] [place], Kimberly Barnes NP [address] DIV IM BONE MARROW TRANSPLANT, [address] [place], [place] [id number] 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); Type 2 diabetes mellitus with hyperglycemia, with long-term current use of insulin (CMS/HCC); Fjllj-xnshlr-orwm disease (CMS/HCC); 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CMS/HCC); Pure hypercholesterolemia; Type 2 diabetes mellitus with hyperosmolarity without coma, with long-term current use of insulin (CMS/HCC); Vitamin D deficiency; 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) Social History Tobacco Use Types Packs/Day Years Used Date Smoking Tobacco: Every Day Smokeless Tobacco: Never Comments:Pt not interested i n smoking cessation program Sex and Gender Information Value Date Recorded Sex Assigned at Not on file 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 Gender Identity Not on file Sexual Orientation Not on file documented as of this encounter Ordered Prescriptions Prescription Sig Dispense Quantity Refills Last Filled Start Date End Date rivaroxaban (Xarelto) 20 mg tabletIndications: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) Take 1 tablet (20 mg total) by mouth daily 30 tablet 1 01/15/20 20 020 voriCONAZOLE (VFEND) 200 mg tabletIndications:Prophy laxis, Medical Take 1 tablet (200 mg total) by mouth 2 (two) times a day 60 tablet 6 01/15/20 20 021 Trelegy Ellipta 100-62.5-25 mcg inhalerIndications:AML (acute myeloid leukemia) in remission (HCC),Xgtsd-fysfkz-enmr disease (HCC),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[facility]) Inhale 1 puff daily 1 each 2 01/15/20 20 021 sulfamethoxazole-trimeth oprim (BACTRIM DS) 800-160 mg per tabletIndications:Pneumo cystis/Toxoplasmosis Prophylaxis Take 1 tablet (160 mg of trimethoprim total) by mouth 2 (two) times a day On Saturday and 30 tablet 1 01/15/20 20 021 predniSONE (DELTASONE) 10 mg tabletIndications: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HCC) Take 1 tablet (10 mg) by mouth daily 30 tablet 01/15/20 20 020 ofloxacin (OCUFLOX) 0.3 % ophthalmic solutionIndications:AML (acute myeloid leukemia) in remission (HCC) Administer 1 drop into both eyes 2 (two) times a day 5 mL 1 01/15/20 20 020 mycophenolate mofetil (CELLCEPT) 500 mg tabletIndications:AML (acute myeloid leukemia) in remission (HCC),Maxan-zujyse-ombr disease (HCC) Take 2 tablets (1,000 mg total) by mouth 2 (two) times a day 180 tablet 3 01/15/20 20 021 montelukast (SINGULAIR) 10 mg tabletIndications:AML (acute myeloid leukemia) in remission ([facility]),Lzkwy-tdimty-mchh disease (HCC) Take one tablet by mouth once daily 90 tablet 01/15/20 20 020 HumaLOG KwikPen Insulin 100 unit/mL insulin penIndications:type 2 diabetes mellitus Inject 20 Units under the skin daily with breakfast 6 mL 01/15/20 20 020 insulin lispro (HumaLOG) 100 unit/mL injectionIndications:AML (acute myeloid leukemia) in remission ([facility]),Type 2 diabetes mellitus with hyperglycemia, with long-term current use of insulin ([facility]) Inject 15 Units under the skin 3 (three) times a day before meals 10 mL 1 01/15/20 20 020 HumaLOG KwikPen Insulin 100 unit/mL insulin penIndications:AML (acute myeloid leukemia) in remission ([facility]) Inject 18 Units under the skin 2 (two) times a day before lunch and dinner PLUS your sliding scale. 10.8 mL 01/15/20 20 020 gabapentin (NEURONTIN) 300 mg capsuleIndications:Type 2 diabetes mellitus with hyperosmolarity without coma, with long-term current use of insulin ([facility]) TAKE 1 PO 4 times daily 120 capsule 1 01/15/20 20 020 furosemide (LASIX) 20 mg tabletIndications:Type 2 diabetes mellitus with hyperosmolarity without coma, with long-term current use of insulin ([facility]) Take 1 tablet (20 mg total) by mouth daily As needed. 30 tablet 01/15/20 20 024 ergocalciferol (VITAMIN D) 50,000 unit capsuleIndications:Vitam in D deficiency Take 1 capsule (50,000 Units total) by mouth once a week 4 capsule 11 01/15/20 20 021 blood glucose diagnostic stripIndications:Type 2 diabetes mellitus with hyperosmolarity without coma, with long-term current use of insulin ([facility]) Check blood sugar tid 100 each 4 01/15/20 20 022 Basaglar KwikPen U-100 Insulin 100 unit/mL (3 mL) insulin penIndications:Type 2 diabetes mellitus with hyperosmolarity without coma, with long-term current use of insulin ([facility]) Inject 45 Units under the skin nightly 13.5 mL 01/15/20 20 020 azithromycin (ZITHROMAX) 250 mg tabletIndications:Prophy laxis, Medical Take 1 tablet (250 mg total) by mouth 3 (three) times a week 30 tablet 1 01/15/20 20 020 atorvastatin (LIPITOR) 40 mg tabletIndications:AML (acute myeloid leukemia) in remission ([facility]),Type 2 diabetes mellitus with hyperglycemia, with long-term current use of insulin ([facility]),Fixzh-tylipi-onin disease (HCC),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HCC),Pure hypercholesterolemia Take 1 tablet (40 mg total) by mouth daily 30 tablet 6 01/15/20 20 024 acyclovir (ZOVIRAX) 400 mg tabletIndications:AML (acute myeloid leukemia) in remission (HCC) Take 1 tablet (400 mg total) by mouth every 8 (eight) hours 270 tablet 1 01/15/20 20 021 documented in this encounter Progress Notes * Kimberly Jennings NP - 01/15/2020 12:30 PM CST [facility] DEPARTMENT OF MEDICINE - SECTION OF BMT & LEUKEMIA [address] [place] [address]- PHONE: FAX: PATIENT NAME: BRI JONES : 1965 ROSY: 12/04/2019 DISCHARGE DATE: 12/04/2019 Patient has a history of AML. 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 TREATMENT HISTORY: 1. Induction with 7+3 and HiDAC consolidation x3. 2. Decitabine maintenance on the CALGB 78562 protocol. 3. Relapsed disease, status post AMD/[facility]. 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 TRANSPLANT HISTORY: Status post an allogeneic transplant with busulfan and Cytoxan on the AMD allogeneic study with hissister, 08/27 match; with day 0 on 11/09/2009. INTERVAL HISTORY: Mr Jones returns for scheduled follow up. He is stable today. His breathing is stable on oxygen.He denies fevers, chills, nausea, vomiting, diarrhea. His glucose is 569 today. He has seen Dr. Gibson this morning and she is managing his diabetes. He is on NPH and Lantus. PHYSICAL EXAM: General: He is alert and oriented x3, in no acute distress. Vital Signs: His current weight is 75.7 kg, blood pressure 107/68, pulse 96, respirations 18, temperature is 37.1 and O2 sat is 99 on oxygen HEENT: Pupils are equal, round, and reactive to light and accommodation. Sclerae anicteric. Neck: Supple without lymphadenopathy. Cardiac: S1 and S2. Regular rate without murmur or gallop. Lungs: Clear to auscultation bilaterally. Abdomen: Soft, nontender, and nondistended with positive bowel sounds. No hepatosplenomegaly. Extremities: Lower extremities without edema. Palpable pulses. Skin: Unremarkable. Neurologic: Grossly intact. No neurological deficit. LABORATORY DATA: Patient's white blood cell count is 7.9, hemoglobin 14.5, hematocrit 43, platelets are 267. 1. Patient with a history of acute myeloid leukemia post an allo transplant 3719 days ago. 2. Chronic sooqu-tafmxw-tben disease. He was put on Jakafi EAP 5 mg b.i.d. and MMF 1 g b.i.d., tacro 0.5 every other day, and his prednisone dose is down to 10 mg a day. 3. Infectious disease prophylaxis. He is on acyclovir 400 t.i.d., azithromycin 250 three times a week, Bactrim on Mondays and , and voriconazole 200 b.i.d. 4. History of deep venous thrombosis and pulmonary embolus. He is on Xarelto 20 mg a day. 5. Chronic obstructive pulmonary disease. He has Ventolin inhaler, Trelegy inhaler, albuterol inhaler, and Singulair 10 a day. 6. Diabetes. He is on Lantus and NPH, he follows with Dr. Gibson who is adjusting his insulin. 7. Neuropathy. He is on gabapentin 300 four times a day. 8. Congestive heart failure. He has Lasix 20 mg a day. He is scheduled to return to see back in 4 weeks. Kimberly Jennings ANP LAYER DRAINAGE documented in this encounter Plan of Treatment Not on file documented as of this encounter Visit Diagnoses Diagnosis AML (acute myeloid leukemia) in remission (HCC) Type 2 diabetes mellitus with hyperglycemia, with long-term current use of insulin (HCC) Ezehw-yptbpk-gjna disease (HCC) 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HCC) Pure hypercholesterolemia Type 2 diabetes mellitus with hyperosmolarity without coma, with long-term current use of insulin (HCC) Vitamin D deficiency Acute myeloid leukemia in remission (HCC) Acute myeloid leukemia in remission documented in this encounter Discontinued Medications Medication Sig Discontinue Reason Start Date End Da te acyclovir (ZOVIRAX) 400 mg tabletIndications:AML (acute myeloid leukemia) in remission (HCC) TAKE 1 TABLET BY MOUTH EVERY 8 HOURS Reorder 03/10/2019 01/15/2020 atorvastatin (LIPITOR) 40 mg tabletIndications:AML (acute myeloid leukemia) in remission (HCC),Type 2 diabetes mellitus with hyperglycemia, with long-term current use of insulin (HCC),Ocvxc-qszlca-mmgm disease (HCC),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HCC),Pure hypercholesterolemia Take 1 tablet (40 mg total) by mouth daily Reorder 02/11/2019 01/15/2020 azithromycin (ZITHROMAX) 250 mg tabletIndications:Prophylax is, Medical Take 1 tablet (250 mg total) by mouth 3 (three) times a week Reorder 11/27/2019 01/15/2020 BASAGLAR KWIKPEN U-100 INSULIN 100 unit/mL (3 mL) insulin penIndications:Type 2 diabetes mellitus with hyperosmolarity without coma, with long-term current use of insulin ([facility]) Inject 45 Units under the skin nightly Reorder 12/04/2019 01/15/2020 blood glucose diagnostic stripIndications:Type 2 diabetes mellitus with hyperosmolarity without coma, with long-term current use of insulin ([facility]) Check blood sugar tid Reorder 07/01/2019 01/15/2020 dextromethorphan-guaiFENesi n (TUSSIN-DM) liquid 10-100 mg/5 mL Take 5 mL by mouth 2 (two) times a day as needed for cough 08/25/2019 01/15/2020 ergocalciferol (VITAMIN D) 50,000 unit capsuleIndications:Vitamin D deficiency Take 1 capsule (50,000 Units total) by mouth once a week Reorder 06/02/2019 01/15/2020 furosemide (LASIX) 20 mg tabletIndications:Type 2 diabetes mellitus with hyperosmolarity without coma, with long-term current use of insulin ([facility]) Take 1 tablet (20 mg total) by mouth daily As needed. Reorder 08/07/2019 01/15/2020 gabapentin (NEURONTIN) 300 mg capsuleIndications:Type 2 diabetes mellitus with hyperosmolarity without coma, with long-term current use of insulin ([facility]) TAKE 1 PO 4 times daily Reorder 11/26/2019 01/15/2020 HUMALOG KWIKPEN INSULIN 100 unit/mL insulin pen Inject 18 Units under the skin 2 (two) times a day before lunch and dinner PLUS your sliding scale. Reorder 11/28/2019 01/15/2020 insulin lispro (HumaLOG) 100 unit/mL injection Inject 15 Units under the skin 3 (three) times a day before meals Reorder 01/15/2020 HUMALOG KWIKPEN INSULIN 100 unit/mL insulin penIndications:type 2 diabetes mellitus Inject 20 Units under the skin daily with breakfast Reorder 12/04/2019 01/15/2020 montelukast (SINGULAIR) 10 mg tabletIndications:AML (acute myeloid leukemia) in remission (HCC),Jjans-zvnokl-oqxc disease (HCC) TAKE 1 TABLET BY MOUTH ONCE DAILY AT NIGHT Reorder 12/21/2019 01/15/2020 mycophenolate mofetil (CELLCEPT) 500 mg tabletIndications:AML (acute myeloid leukemia) in remission (HCC),Agfjp-vhjivd-tyqs disease (HCC) TAKE 2 TABLETS BY MOUTH TWICE DAILY Reorder 01/05/2019 01/15/2020 ofloxacin (OCUFLOX) 0.3 % ophthalmic solution Administer 1 drop into both eyes 2 (two) times a day Reorder 08/11/2019 01/15/2020 predniSONE (DELTASONE) 10 mg tabletIndications: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HCC) Take 1 tablet (10 mg) by mouth daily Reorder 12/28/2019 01/15/2020 sulfamethoxazole-trimethopr im (BACTRIM DS) 800-160 mg per tabletIndications:Pneumocys tis/Toxoplasmosis Prophylaxis Take 1 tablet (160 mg of trimethoprim total) by mouth 2 (two) times a day On Saturday and Reorder 11/26/2019 01/15/2020 ARPITA ELLIPTA 100-62.5-25 mcg inhalerIndications:AML (acute myeloid leukemia) in remission (HCC),Woqon-bxqnzh-bvdt disease (HCC),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HCC) INHALE 1 PUFF BY INHALATION ROUTE ONCE DAILY AT THE SAME TIME EACH DAY. RINSE SPIT AFTER USE. DON T USE WITH OTHER INHALERS. STOP ADVAIR AND Reorder 10/02/2019 01/15/2020 voriCONAZOLE (VFEND) 200 mg tabletIndications:Prophylax is, Medical Take 1 tablet (200 mg total) by mouth 2 (two) times a day Reorder 12/04/2019 01/15/2020 XARELTO 20 mg tabletIndications:AML (acute myeloid leukemia) in remission (HCC) TAKE 1 TABLET BY MOUTH ONCE DAILY WITH FOOD Reorder 06/15/2019 01/15/2020 documented as of this encounter 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 Care Teams Mosaic Layer Relationship Specialty Start Date End Date Kirt Lindsay DO PCP - General 05/02/17 11/22/20 Josué Del Valle MD PhD Medical Oncologist/Cable Puller Medical Oncology 08/26/19 documented as of this encounter
--- OUTSIDE RECORDS SUMMARY | 2024-11-22 11:03 | XMS_ITS | Encounter Summary ---
Author Organization [facility] Address [address] [facility] [address] [place] [address] Phone Care Team Providers Care Center Punch Operator Name Role Phone Kirt Lindsay DO Primary Care Provider [phone] Josué Del Valle MD PhD Unavailable [phone] Reason for Visit * Oncology (Routine) - Closed Specialty Diagnoses / Procedures Referred By Contac t Referred To Contact Lab Diagnoses #C,,, pt call Procedures ARM DRAW Josué Del Valle MD PhD Phone: tel: fax: [facility] [address] [facility] 7th [place] [address] [place] [address] Phone: tel: Referral ID Status Reason Start Date Expiration Date V isits Requested Visits Authorized [id number] Closed Specialty Services Required 11/20/2019 11/19/2020 24 24 Encounter Details Date Type Department Care Team (Late st Contact Info) Description 12/04/2019 9:00 AM ADMINISTRATIVE OFFICE MANAGER Lab [facility] [address] 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) Social History Tobacco Use Types Packs/Day Years Used Date Smoking Tobacco: Every Day Smokeless Tobacco: Never Comments:Pt not interested i n smoking cessation program Sex and Gender Information Value Date Recorded Sex Assigned at Not on file Legal Sex Male 10:48 AM ADMINISTRATIVE OFFICE MANAGER Gender Identity Not on file Sexual Orientation Not on file documented as of this encounter Plan of Treatment Not on file documented as of this encounter Procedures Procedure Name Priority Date/Time Associated Diagnosis Comments DIFFERENTIAL AUTO STAT 12/04/2019 10: 03 AM ADMINISTRATIVE OFFICE MANAGER 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) CBC WITH AUTO DIFFERENTIAL STAT 12/04/2019 10:03 AM ADMINISTRATIVE OFFICE MANAGER 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) CYTOMEGALOVIRUS (CMV) DNA, QUANT GEN LAB STAT 12/04/2019 9:50 AM ADMINISTRATIVE OFFICE MANAGER 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) TACROLIMUS LEVEL, RANDOM STAT 12/04/2019 9:49 AM ADMINISTRATIVE OFFICE MANAGER 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) URIC ACID STAT 12/04/2019 9:49 AM ADMINISTRATIVE OFFICE MANAGER 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) MAGNESIUM STAT 12/04/2019 9:49 AM ADMINISTRATIVE OFFICE MANAGER 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) LACTATE DEHYDROGENASE STAT 12/04/2019 9:49 AM ADMINISTRATIVE OFFICE MANAGER 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) COMPREHENSIVE METABOLIC PANEL STAT 12/04/2019 9:49 AM ADMINISTRATIVE OFFICE MANAGER 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) documented in this encounter Results * (ABNORMAL) Differential, auto (12/04/2019 10:03 AM ADMINISTRATIVE OFFICE MANAGER) Neutrophil abs 5.1 1.8 - 6.6 K/cumm ZULEMA DENT Comment:Testing performed by : [facility], [address] [place] [phone] Lymphocyte abs 3.9(H) 1.2 - 3.3 K/cumm [facility] Comment:Testing performed by : [facility], [address] [place] [phone] Monocyte abs 1.4(H) 0.2 - 1.2 K/cumm [facility] Comment:Testing performed by : [facility], [address] [place] [phone] Eosinophil abs 0.2 0.0 - 0.5 K/cumm [facility] Comment:Testing performed by : [facility], [address] [place] [phone] Basophil abs 0.1 0.0 - 0.2 K/cumm [facility] Comment:Testing performed by : [facility], [address] [place] [phone] Neutrophil pct 47.8 % [facility] Comment: Interpretive Data Percent cell count reference ranges are not reported, since discordance with absolute values may lead to misinterpretation of CBC data. Current Interpretive Data was last revised on 2018. Testing performed by: [facility], [address] [place] [phone] Lymphocyte pct 36.4 % [facility] Comment: Interpretive Data Percent cell count reference ranges are not reported, since discordance with absolute values may lead to misinterpretation of CBC data. Current Interpretive Data was last revised on 2018. Testing performed by: [facility], [address] [place] [phone] Monocyte pct 13.3 % [facility] Comment:Testing performed by : [facility], [address] [place] [phone] Eosinophil pct 1.5 % [facility] Comment:Testing performed by : [facility], [address] [place] [phone] Basophil pct 1.0 % [facility] Comment:Testing performed by : [facility], [address] [place] [phone] Blood specimen (specimen) 12/04/2019 10:03 AM ADMINISTRATIVE OFFICE MANAGER 12/04/2019 10:04 AM ADMINISTRATIVE OFFICE MANAGER Josué Del Valle MD PhD LAB BLOOD ORDERABLES Fin al Result [facility] Department [place] [address] * (ABNORMAL) CBC with auto differential (12/04/2019 10:03 AM ADMINISTRATIVE OFFICE MANAGER) WBC 10.7(H) 3.8 - 9.8 K/cumm [facility] Comment:Testing performed by : [facility], [address] [place] [phone] Hgb 12.4(L) 13.8 - 17.2 g/dL [facility] Comment:Testing performed by : [address] [phone] Hct 38.1(L) 40.7 - 50.3 % [facility] Comment:Testing performed by : [address] [phone] Plt 235 140 - 440 K/cumm ZULEMA [facility] Comment:Testing performed by : [address] [phone] MPV 8.4 6.8 - 10.4 fL [facility] Comment:Testing performed by : [address] [phone] RBC 3.61(L) 4.50 - 5.70 M/cumm [facility] Comment:Testing performed by : [address] [phone] MCV 105.5(H) 80.0 - 97.6 fL [facility] Comment:Testing performed by : [address] [phone] MCH 34.4(H) 26.7 - 33.7 pg [facility] Comment:Testing performed by : [address] [address] MCHC 32.6(L) 32.7 - 35.5 g/dL [facility] Comment:Testing performed by : [address] [address] RDW CV 15.4(H) 11.8 - 14.6 % [facility] Comment:Testing performed by : [facility], [address] [facility] [phone] NRBC abs 0.03(H) 0.00 - 0.01 K/cumm [facility] Comment:Testing performed by : [facility], [address] [facility] [phone] Blood specimen (specimen) 12/04/2019 10:03 AM ADMINISTRATIVE OFFICE MANAGER 12/04/2019 10:04 AM ADMINISTRATIVE OFFICE MANAGER Josué Del Valle MD PhD LAB BLOOD ORDERABLES Fin al Result Performing Organization Address [facility] Co de Phone Number [facility] Department [place] [address] * Cytomegalovirus (CMV) DNA PCR, quantitative Blood (12/04/2019 9:50 AM ADMINISTRATIVE OFFICE MANAGER) [facility] CMV DNA Not Detected [facility] Comment: Interpretive Data: The quantifiable range of this assay is 137 IUnits/mL to 9,100,000 IUnits/mL (2.14 log IUnits/mL to 6.96 log IUnits/mL). Testing was performed by the [employer]MICHEL TaqMan CMV Test ([employer] Testing performed at [facility] Current interpretive data was last revised on 17. Blood specimen (specimen) 12/04/2019 9:50 AM ADMINISTRATIVE OFFICE MANAGER 12/04/2019 12:44 PM ADMINISTRATIVE OFFICE MANAGER Josué Del Valle MD PhD LAB MICROBIOLOGY - GENER AL ORDERABLES Final Result Performing Organization Address [facility] Co de Phone Number [facility] Department [place] [address] * (ABNORMAL) Comprehensive metabolic panel (12/04/2019 9:49 AM ADMINISTRATIVE OFFICE MANAGER) [facility] Sodium 137 135 - 145 mmol/L [facility] Potassium, pl 4.6 3.3 - 4.9 mmol/L [facility] Chloride 98 97 - 110 mmol/L [facility] CO2 33(H) 22 - 32 mmol/L [facility] Anion gap 6 2 - 15 mmol/L [facility] BUN 13 8 - 25 mg/dL [facility] Creatinine 0.91 0.80 - 1.30 mg/dL [facility] Glucose 426(H) 70 - 199 mg/dL [facility] Comment: Interpretive Data Fasting glucose >/= [...] interpretive data was last revised 2017. Calcium 9.7 8.5 - 10.3 mg/dL [facility] Bilirubin, total 0.3 0.1 - 1.2 mg/dL [facility] Protein, pl 6.8 6.5 - 8.5 g/dL [facility] Albumin 3.6 3.5 - 5.0 g/dL [facility] Alk phos 183(H) 40 - 130 Units/L [facility] ALT 67(H) 7 - 55 Units/L [facility] AST 49 10 - 50 Units/L [facility] Blood specimen (specimen) 12/04/2019 9:49 AM ADMINISTRATIVE OFFICE MANAGER 12/04/2019 10:31 AM ADMINISTRATIVE OFFICE MANAGER us Josué Del Valle MD PhD LAB BLOOD ORDERABLES Fin al Result [facility] Department [place] [address] * (ABNORMAL) Lactate dehydrogenase (LD) (12/04/2019 9:49 AM ADMINISTRATIVE OFFICE MANAGER) Lactate dehydrogenase (LDH) 512(H) 100 - 250 Units/L [facility] Blood specimen (specimen) 12/04/2019 9:49 AM ADMINISTRATIVE OFFICE MANAGER 12/04/2019 10:31 AM ADMINISTRATIVE OFFICE MANAGER Josué Del Valle MD PhD LAB BLOOD ORDERABLES Fin al Result Performing Organization Address [facility] de Phone Number [facility] [place] [address] * Magnesium (12/04/2019 9:49 AM ADMINISTRATIVE OFFICE MANAGER) Magnesium 1.4 1.4 - 2.5 mg/dL [facility] Blood specimen (specimen) 12/04/2019 9:49 AM ADMINISTRATIVE OFFICE MANAGER 12/04/2019 10:31 AM ADMINISTRATIVE OFFICE MANAGER Josué Del Valle MD PhD LAB BLOOD ORDERABLES Fin al Result Performing Organization Address [facility] Phone Number [facility] [place] [address] * Tacrolimus level, random (12/04/2019 9:49 AM ADMINISTRATIVE OFFICE MANAGER) Tacrolimus, random 3.9 ng/mL [facility] Comment: Interpretive Data Testing performed by liquid chromatography-tandem mass spectrometry. ??Therapeutic concentrations vary depending on type of transplanted organ and time elapsed since transplant. ??Typical trough concentrations range from 5-15 ng/mL. ??This test was developed and its performance characteristics determined by the [facility] consistent with CLIA requirements. ??This test has not been cleared or approved by the [place] Food and Drug administration. ??Current interpretive data last reviewed 2019. Blood specimen (specimen) 12/04/2019 9:49 AM ADMINISTRATIVE OFFICE MANAGER 12/04/2019 10:13 AM ADMINISTRATIVE OFFICE MANAGER Josué Del Valle MD PhD LAB BLOOD ORDERABLES Fin al Result Performing Organization Address [facility] Phone Number [facility] [place] [address] * Uric acid (12/04/2019 9:49 AM ADMINISTRATIVE OFFICE MANAGER) Uric acid 3.1 3.0 - 8.0 mg/dL [facility] Blood specimen (specimen) 12/04/2019 9:49 AM ADMINISTRATIVE OFFICE MANAGER 12/04/2019 10:31 AM ADMINISTRATIVE OFFICE MANAGER us Josué Del Valle MD PhD LAB BLOOD ORDERABLES Fin al Result 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
--- OUTSIDE RECORDS SUMMARY | 2024-11-22 11:03 | XMS_ITS | Encounter Summary ---
Author Organization [facility] Address [address] [place] [address] Phone Care Team Providers Care Wound/Ostomy Clinical Nurse Specialist Name Role Phone Kirt Lindsay DO Primary Care Provider [phone] Josué Del Valle MD PhD Unavailable [phone] Reason for Visit * Reason Onset Date Comments Vori 01/18/2020 Encounter Details Date Type Department Care Team (Late st Contact Info) Description 01/18/2020 Documentation [facility] Bone Marrow Transplant [address] [facility] 7th Floor, [place] [address] Lluvia Vaca RMA Vori Social History Tobacco Use Types Packs/Day Years Used Date Smoking Tobacco: Every Day Smokeless Tobacco: Never Comments:Pt not interested i n smoking cessation program Sex and Gender Information Value Date Recorded Sex Assigned at Not on file Legal Sex Male 10:48 AM BESSEMER CONVERTER OPERATOR Gender Identity Not on file Sexual Orientation Not on file documented as of this encounter Progress Notes * Lluvia Vaca MA - 01/18/2020 8:40 AM CST PA for Voriconazole submitted and approved through [employer] Valid 01/15/20-02/14/20 EMER CONVERTER OPERATOR documented in this encounter Plan of Treatment Not on file documented as of this encounter Visit Diagnoses Not on filedocumented in this encounter 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
--- OUTSIDE RECORDS SUMMARY | 2024-11-22 11:03 | XMS_ITS | Encounter Summary ---
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 7th [place] [address] [place] [id number] Eneida Gibson MD [address] [place] [address] Type 2 diabetes mellitus with hyperosmolarity without coma, with long-term current use of insulin (CMS/HCC) (Primary Dx); Vitamin D deficiency; 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); Pure hypercholesterolemia; Osteopenia, unspecified location Social History Tobacco Use Types Packs/Day Years Used Date Smoking Tobacco: Every Day Smokeless Tobacco: Never Comments:Pt not interested i n smoking cessation program Sex and Gender Information Value Date Recorded Sex Assigned at Not on file Legal Sex Male 10:48 AM LANDSCAPING SUPERVISOR Gender Identity Not on file Sexual Orientation Not on file documented as of this encounter Last Filed Vital Signs Vital Sign Reading Time Taken Comments Blood Pressure 107/68 01/15/2020 12:14 PM LANDSCAPING SUPERVISOR Pulse 96 01/15/2020 12:14 PM LANDSCAPING SUPERVISOR Temperature 37.1 ??C (98.8 ??F) 01/15/2020 1 2:14 PM LANDSCAPING SUPERVISOR Respiratory Rate 18 01/15/2020 12:1 4 PM LANDSCAPING SUPERVISOR Oxygen Saturation 99% 01/15/2020 12: 14 PM LANDSCAPING SUPERVISOR Inhaled Oxygen Concentration - - Weight 75.7 kg (166 lb 12.8 oz) 020 12:14 PM LANDSCAPING SUPERVISOR Height - - Body Mass Index 23.93 11/20/2019 11:58 AM LANDSCAPING SUPERVISOR documented in this encounter Patient Instructions * Patient Instructions* Eneida Gibson MD - 01/15/2020 11:20 AM LANDSCAPING SUPERVISOR Increase Basaglar to 40 units in the morning Increase Ademlog to 20 units with meals Add sliding scale SCAPING SUPERVISOR documented in this encounter Progress Notes * Eneida Gibson MD - 01/15/2020 11:20 AM CST Subjective Patient is a 54 y.o. 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 He was admitted to the hospital a couple weeks ago for SOB and high blood sugars. Was discharged onprednisone 10 mg daily. States that, since discharge, his prednisone dose was again increased to 30mg daily because of SOB. He is undergoing a taper and will be on 10 mg daily starting on January 16.Took an additional 30 mg of prednsione at 3 AM this morning for chest tightness. Discharge insulin regimen: Basaglar 40U daily, NPH 15 units with prednisone, Humalog 15U with breakfast and 18U with lunch and dinner with meals plus SSI. Basaglar was increased to 45 units and NPH to 20 units with prednisone when he saw BMT in November. He did not follow any of these recommendations and he takes Basaglar 30 units in he morning and Ademlog 15 units before meals. He ran out of NPH. He checks BS 1-3 times daily. His BS are in the 200- 400s. He has been taking OTC vitamin D and weekly ergocalciferol. Drinks milk and eats cheeses. Denies falls or fractures. No back pain. Has neuropathy and takes gabapentin at night occasionally. He doesn't have retinopathy, has cataracts from prednisone use. No nephropathy. Takes atorvastatin 40 mg daily. He quit smoking. DIAGNOSES: 1. 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 T2DM 4. Hyperlipidemia-on atorvastatin 5. Osteopenia. CURRENT MEDICATIONS: Current Outpatient Medications: ??? acyclovir (ZOVIRAX) 400 mg tablet, TAKE 1 TABLET BY MOUTH EVERY 8 HOURS, Disp: 270 tablet, Rfl:1 ??? atorvastatin (LIPITOR) 40 mg tablet, Take 1 tablet (40 mg total) by mouth daily, Disp: 30 tablet, Rfl: 6 ??? azithromycin (ZITHROMAX) 250 mg tablet, Take 1 tablet (250 mg total) by mouth 3 (three) times aweek, Disp: 30 tablet, Rfl: 1 ??? BASAGLAR KWIKPEN U-100 INSULIN 100 unit/mL (3 mL) insulin pen, Inject 45 Units under the skin nightly, Disp: 13.5 mL, Rfl: 0 ??? blood glucose diagnostic strip, Check blood sugar tid, Disp: 100 each, Rfl: 4 ??? blood-glucose meter misc, 1 Device 3 (three) times a day, Disp: 1 each, Rfl: 0 ??? dextromethorphan-guaiFENesin (TUSSIN-DM) liquid 10-100 mg/5 mL, Take 5 mL by mouth 2 (two) times a day as needed for cough, Disp: 118 mL, Rfl: 0 ??? ergocalciferol (VITAMIN D) 50,000 unit capsule, Take 1 capsule (50,000 Units total) by mouth once a week, Disp: 4 capsule, Rfl: 11 ??? furosemide (LASIX) 20 mg tablet, Take 1 tablet (20 mg total) by mouth daily As needed., Disp: 30 tablet, Rfl: 0 ??? gabapentin (NEURONTIN) 300 mg capsule, TAKE 1 PO 4 times daily, Disp: , Rfl: ??? HUMALOG KWIKPEN INSULIN 100 unit/mL insulin pen, Inject 18 Units under the skin 2 (two) times aday before lunch and dinner PLUS your sliding scale., Disp: 10.8 mL, Rfl: 0 ??? HUMALOG KWIKPEN INSULIN 100 unit/mL insulin pen, Inject 20 Units under the skin daily with breakfast, Disp: 6 mL, Rfl: 0 ??? HYDROcodone-acetaminophen (NORCO) 5-325 mg per tablet, Take 1 tablet by mouth every 6 (six) hours as needed, Disp: , Rfl: 0 ??? INV-[facility] ruxolitinib (/INCB [id number]) 5 mg tablet, Take 1 tablet (5 mg total) by mouth 2 (two) times a day Take at about the same time each day with an 8oz glass of water. Doses may be taken without regard to food., Disp: , Rfl: ??? montelukast (SINGULAIR) 10 mg tablet, TAKE 1 TABLET BY MOUTH ONCE DAILY AT NIGHT, Disp: 90 tablet, Rfl: 0 ??? mycophenolate mofetil (CELLCEPT) 500 mg tablet, TAKE 2 TABLETS BY MOUTH TWICE DAILY, Disp: 180 tablet, Rfl: 3 ??? nicotine (NICODERM CQ) 21 mg, Place 1 patch on the skin daily, Disp: 30 patch, Rfl: 0 ??? ofloxacin (OCUFLOX) 0.3 % ophthalmic solution, Administer 1 drop into both eyes 2 (two) times aday, Disp: 5 mL, Rfl: 1 ??? predniSONE (DELTASONE) 10 mg tablet, Take 1 tablet (10 mg) by mouth daily, Disp: 30 tablet, Rfl: 0 ??? sulfamethoxazole-trimethoprim (BACTRIM DS) 800-160 mg per tablet, Take 1 tablet (160 mg of trimethoprim total) by mouth 2 (two) times a day On Saturday and , Disp: 30 tablet, Rfl: 1 ??? tacrolimus (PROGRAF) 0.5 mg capsule, Take 1 capsule (0.5 mg total) by mouth every other day., Disp: , Rfl: ??? traMADol (ULTRAM) 50 mg tablet, TAKE 1 TABLET BY MOUTH EVERY 6 HOURS NEEDED FOR PAIN (MAX OF3 TABLETS PER DAY), Disp: , Rfl: 0 ??? TRELEGY ELLIPTA 100-62.5-25 mcg inhaler, INHALE 1 PUFF BY INHALATION ROUTE ONCE DAILY AT THE SAME TIME EACH DAY. RINSE SPIT AFTER USE. DON T USE WITH OTHER INHALERS. STOP ADVAIR AND, Disp: , Rfl:0 ??? VENTOLIN HFA 90 mcg/actuation inhaler, INHALE 1 TO 2 PUFFS BY MOUTH EVERY 4 HOURS NEEDED FORSHORTNESS OF BREATH, Disp: 1 Inhaler, Rfl: 3 ??? voriCONAZOLE (VFEND) 200 mg tablet, Take 1 tablet (200 mg total) by mouth 2 (two) times a day, Disp: 60 tablet, Rfl: 6 ??? XARELTO 20 mg tablet, TAKE 1 TABLET BY MOUTH ONCE DAILY WITH FOOD, Disp: 60 tablet, Rfl: 1 Review of Systems: Review of Systems All other systems reviewed and are negative. As per HPI. Objective Vitals: Most Recent : Vitals BP 107/68 (BP Location: Right arm) Pulse 96 Temp 37.1 ??C (98.8 ??F) (Oral) Resp 18 Wt 75.7 kg (166 lb 12.8 oz) SpO2 99% BMI 23.93 kg/m?? Physical Exam: Physical Exam Constitutional: Appearance: He is well-developed. HENT: Head: Normocephalic and atraumatic. Nose: Comments: O2 nasal cannula Eyes: Conjunctiva/sclera: Conjunctivae normal. Cardiovascular: Rate and Rhythm: Normal rate and regular rhythm. Heart sounds: No murmur. Pulmonary: Breath sounds: Normal breath sounds. No wheezing or rales. Abdominal: General: Bowel sounds are normal. There is no distension. Palpations: Abdomen is soft. Tenderness: There is no abdominal tenderness. Musculoskeletal: General: No deformity. Feet: Right Foot: Skin Integrity: Positive for dry skin. Left Foot: Skin Integrity: Positive for dry skin. Skin: General: Skin is warm. Findings: No erythema or rash. Neurological: Mental Status: He is oriented to person, place, and time. Lab/Radiology/Diagnostic Review: Laboratory review: reviewed the laboratory result(s) in the last 24 hours: Recent Results (from the past 24 hour(s)) Lactate dehydrogenase (LD) Collection Time: 01/15/20 11:32 AM Result Value Ref Range Lactate dehydrogenase (LDH) 296 (H) 100 - 250 Units/L Comprehensive metabolic panel Collection Time: 01/15/20 11:32 AM Result Value Ref Range Sodium 133 (L) 135 - 145 mmol/L Potassium, pl 4.3 3.3 - 4.9 mmol/L Chloride 92 (L) 97 - 110 mmol/L CO2 28 22 - 32 mmol/L Anion gap 13 2 - 15 mmol/L BUN 20 8 - 25 mg/dL Creatinine 0.83 0.80 - 1.30 mg/dL Glucose 567 (Critical) 70 - 199 mg/dL Calcium 9.3 8.5 - 10.3 mg/dL Bilirubin, total 0.3 0.1 - 1.2 mg/dL Protein, pl 7.0 6.5 - 8.5 g/dL Albumin 4.2 3.5 - 5.0 g/dL Alk phos 111 40 - 130 Units/L ALT 18 7 - 55 Units/L AST 42 10 - 50 Units/L Type and screen Collection Time: 01/15/20 11:32 AM Result Value Ref Range ABO Rh A Positive Ursula, indirect Negative Critical Result Callback Chemistry Collection Time: 01/15/20 11:32 AM Result Value Ref Range Date Notified 20200115 Time Notified 1305 TestName Glucose Called/Read Back [facility] Called By Dwaine Vitamin D 25 hydroxy Collection Time: 01/15/20 11:33 AM Result Value Ref Range Vitamin D, 25-hydroxy 20 (L) 30 - 80 ng/mL Comprehensive metabolic panel Collection Time: 01/15/20 11:33 AM Result Value Ref Range Sodium 132 (L) 135 - 145 mmol/L Potassium, pl 4.8 3.3 - 4.9 mmol/L Chloride 92 (L) 97 - 110 mmol/L CO2 26 22 - 32 mmol/L Anion gap 14 2 - 15 mmol/L BUN 20 8 - 25 mg/dL Creatinine 0.82 0.80 - 1.30 mg/dL Glucose 569 (Critical) 70 - 199 mg/dL Calcium 9.2 8.5 - 10.3 mg/dL Bilirubin, total 0.3 0.1 - 1.2 mg/dL Protein, pl 7.0 6.5 - 8.5 g/dL Albumin 4.1 3.5 - 5.0 g/dL Alk phos 110 40 - 130 Units/L ALT 19 7 - 55 Units/L AST 47 10 - 50 Units/L Hemoglobin A1c Collection Time: 01/15/20 11:33 AM Result Value Ref Range Hgb A1C 12.4 (H) 4.0 - 5.6 % Estimated Average Glucose 309 mg/dL Critical Result Callback Chemistry Collection Time: 01/15/20 11:33 AM Result Value Ref Range Date Notified 20200115 Time Notified 1227 TestName Glucose Called/Read Back Penny Valerio Credentials RN Called By PAL CBC with auto differential Collection Time: 01/15/20 11:35 AM Result Value Ref Range WBC 7.9 3.8 - 9.8 K/cumm Hgb 14.5 13.8 - 17.2 g/dL Hct 43.4 40.7 - 50.3 % Plt 267 140 - 440 K/cumm MPV 8.9 6.8 - 10.4 fL RBC 4.28 (L) 4.50 - 5.70 M/cumm MCV 101.3 (H) 80.0 - 97.6 fL MCH 33.8 (H) 26.7 - 33.7 pg MCHC 33.3 32.7 - 35.5 g/dL RDW CV 14.2 11.8 - 14.6 % NRBC abs 0.01 0.00 - 0.01 K/cumm Differential, auto Collection Time: 01/15/20 11:35 AM Result Value Ref Range Neutrophil abs 6.0 1.8 - 6.6 K/cumm Lymphocyte abs 1.4 1.2 - 3.3 K/cumm Monocyte abs 0.3 0.2 - 1.2 K/cumm Eosinophil abs 0.0 0.0 - 0.5 K/cumm Basophil abs 0.0 0.0 - 0.2 K/cumm Neutrophil pct 76.7 % Lymphocyte pct 18.3 % Monocyte pct 4.4 % Eosinophil pct 0.1 % Basophil pct 0.5 % DEXA 07/2019 FINDINGS: BONE MINERAL DENSITY [...] been no significant change noted. Assessment /Plan Problem List Items Addressed This Visit High Type 2 diabetes mellitus (CMS/HCC) - Primary -poorly controlled, exacerbated by prednisone use -Hgb A1C very high; difficult to manage due to noncompliance -prednisone decreased to 10 mg daily -will increase Basaglar to 40 units QAM -will take Ademlog 20 units with meals + ISS -monofilament exam 05/2019: absent sensation in 2nd and 3rd toes of R foot, normal sensation in L foot -no retinopathy, has cataracts -BP at goal Relevant Orders Clinic Appointment Request Follow up; ARNIE GIBSON MD; Clinic Appointment Location: [facility] Lab Draw Appt Request Arm Draw or Central Line Draw? Arm; What is your ordering location? [facility]/Hem/BMT; Where will this patient receive treatment? [facility] 7 Hemoglobin A1c Comprehensive metabolic panel Vitamin D 25 hydroxy Unprioritized Osteopenia -DEXA scan done 07/2019 revealed stable BMD -will continue vitamin D supplementation and dietary calcium 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) Relevant Orders Ambulatory referral to Oncology Pure hypercholesterolemia -LDL at goal -will continue atorvastatin 40 mg daily Vitamin D deficiency -vitamin D levels still low, unclear compliance -will continue current regimen Relevant Orders Clinic Appointment Request Follow up; ARNIE GIBSON MD; Clinic Appointment Location: [facility] Lab Draw Appt Request Arm Draw or Central Line Draw? Arm; What is your ordering location? [facility]; Where will this patient receive treatment? [facility] Hemoglobin A1c Comprehensive metabolic panel Vitamin D 25 hydroxy RTC in 2 months. SCAPING SUPERVISOR documented in this encounter Miscellaneous Notes * Assessment & Plan Note - Eneida Gibson MD - 01/15/2020 3:22 PM CSTAssociated Problem(s): Osteopenia -DEXA scan done 07/2019 revealed stable BMD -will continue vitamin D supplementation and dietary calcium SCAPING SUPERVISOR * Assessment & Plan Note - Eneida Gibson MD - 01/15/2020 3:22 PM CSTAssociated Problem(s): Vitamin D deficiency -vitamin D levels still low, unclear compliance -will continue current regimen SCAPING SUPERVISOR * Assessment & Plan Note - Eneida Gibson MD - 01/15/2020 3:22 PM CSTAssociated Problem(s): Pure hypercholesterolemia -LDL at goal -will continue atorvastatin 40 mg daily SCAPING SUPERVISOR * Assessment & Plan Note - Eneida Gibson MD - 01/15/2020 3:20 PM CSTAssociated Problem(s): Type 2 diabetes mellitus (HCC) -poorly controlled, exacerbated by prednisone use -Hgb A1C very high; difficult to manage due to noncompliance -prednisone decreased to 10 mg daily -will increase Basaglar to 40 units QAM -will take Ademlog 20 units with meals + ISS -monofilament exam 05/2019: absent sensation in 2nd and 3rd toes of R foot, normal sensation in L foot -no retinopathy, has cataracts -BP at goal SCAPING SUPERVISOR SCAPING SUPERVISOR documented in this encounter Plan of Treatment Not on file documented as of this encounter Visit Diagnoses Diagnosis Type 2 diabetes mellitus with hyperosmolarity without coma, with long-term current use of insulin (HCC)- Primary Vitamin D deficiency 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
--- OUTSIDE RECORDS SUMMARY | 2024-11-22 11:03 | XMS_ITS | Encounter Summary ---
Author Organization [facility] Address [address] [place] [address] Phone Care Team Providers Care Gang Boss Name Role Phone Kirt Lindsay DO Primary Care Provider [phone] Josué Del Valle MD PhD Unavailable [phone] Encounter Details Date Type Department Care Team (Late st Contact Info) Description 12/11/2019 Documentation [facility] Oncology [address] [facility] 7th [place] [address] [place] [id number] Quiana Flores RMA Social History Tobacco Use Types Packs/Day Years Used Date Smoking Tobacco: Every Day Smokeless Tobacco: Never Comments:Pt not interested i n smoking cessation program Sex and Gender Information Value Date Recorded Sex Assigned at Not on file Legal Sex Male 10:48 AM GUEST RELATIONS REPRESENTATIVE Gender Identity Not on file Sexual Orientation Not on file documented as of this encounter Progress Notes * Quiana Flores RMA - 12/11/2019 12:00 PM CST LMOR Called pt to get blood sugar readings for the past 5 days and to what insulins or medication he is taking for his diabetes T RELATIONS REPRESENTATIVE documented in this encounter Plan of Treatment Not on file documented as of this encounter Visit Diagnoses Not on filedocumented in this encounter 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
--- OUTSIDE RECORDS SUMMARY | 2024-11-22 11:03 | XMS_ITS | Encounter Summary ---
Author Organization [facility] Address [address] [place] [address] Phone Care Team Providers Care Ingredient Handler Name Role Phone Kirt Lindsay DO Primary Care Provider [phone] Josué Del Valle MD PhD Unavailable [phone] Encounter Details Date Type Department Care Team (Late st Contact Info) Description 01/14/2020 Orders Only [facility] Oncology [address] [facility] 7th [place] [address] [place] [phone] Eneida Gibson MD [address] [place] [address] Type 2 diabetes mellitus with hyperosmolarity without coma, with long-term current use of insulin (CMS/HCC) (Primary Dx) Social History Tobacco Use Types Packs/Day Years Used Date Smoking Tobacco: Every Day Smokeless Tobacco: Never Comments:Pt not interested i n smoking cessation program Sex and Gender Information Value Date Recorded Sex Assigned at Not on file Legal Sex Male 10:48 AM LINOTYPE MACHINIST Gender Identity Not on file Sexual Orientation Not on file documented as of this encounter Plan of Treatment Not on file documented as of this encounter Results * (ABNORMAL) Vitamin D 25 hydroxy (01/15/2020 11:33 AM LINOTYPE MACHINIST) Vitamin D 25-OH 20(L) 30 - 80 ng/mL [facility] Blood specimen (specimen) 01/15/2020 11:33 AM LINOTYPE MACHINIST 01/15/2020 11:49 AM LINOTYPE MACHINIST us Eneida Gibson MD LAB BLOOD ORDERABLES Final Resul t [facility] Department [place] [address] * (ABNORMAL) Comprehensive metabolic panel (01/15/2020 11:33 AM LINOTYPE MACHINIST) Pathologist [facility] Sodium 132(L) 135 - 145 mmol/L [facility] Potassium, pl 4.8 3.3 - 4.9 mmol/L [facility] Comment:Hemolyzed; Potassium value may be falsely elevated by as much as 0.6-1.0 mmol/L. Suggest redraw and reanalysis. Chloride 92(L) 97 - 110 mmol/L [facility] CO2 26 22 - 32 mmol/L [facility] Anion gap 14 2 - 15 mmol/L [facility] BUN 20 8 - 25 mg/dL [facility] Creatinine 0.82 0.80 - 1.30 mg/dL [facility] Glucose 569(C) 70 - 199 mg/dL [facility] Comment: Interpretive Data Fasting glucose >/= [...] 2017. Calcium 9.2 8.5 - 10.3 mg/dL [facility] Bilirubin, total 0.3 0.1 - 1.2 mg/dL [facility] Protein, pl 7.0 6.5 - 8.5 g/dL [facility] Albumin 4.1 3.5 - 5.0 g/dL [facility] Alk phos 110 40 - 130 Units/L [facility] ALT 19 7 - 55 Units/L [facility] AST 47 10 - 50 Units/L [facility] Comment:Hemolyzed; result ma y be falsely elevated Blood specimen (specimen) 01/15/2020 11:33 AM LINOTYPE MACHINIST 01/15/2020 11:49 AM LINOTYPE MACHINIST Eneida Gibson MD LAB BLOOD ORDERABLES Final Resul t Performing Organization Address [facility] de Phone Number [facility] [place] [address] * (ABNORMAL) Hemoglobin A1c (01/15/2020 11:33 AM LINOTYPE MACHINIST) Hgb A1C 12.4(H) 4.0 - 5.6 % [facility] Estimated Average Glucose 309 mg/dL [facility] Comment: The ADA recommends reporting an estimated Average Glucose (eAG) with all Hemoglobin A1c results using the equation derived from a study of 507 normal and diabetic adults. ??Minority populations were underrepresented and children were not included. ?? (Diabetes Care 31:2932-5914, 2008). ??The eAG is not equivalent to a fasting glucose. Blood specimen (specimen) 01/15/2020 11:33 AM LINOTYPE MACHINIST 01/15/2020 11:49 AM LINOTYPE MACHINIST Eneida Gibson MD LAB BLOOD ORDERABLES Final Resul t Performing Organization Address 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
--- OUTSIDE RECORDS SUMMARY | 2024-11-22 11:03 | XMS_ITS | Encounter Summary ---
Author Organization [facility] Address [address] [place] [address] Phone Care Team Providers Care Market Risk Specialist Name Role Phone Kirt Lindsay DO Primary Care Provider [phone] Josué Del Valle MD PhD Unavailable [phone] Encounter Details Date Type Department Care Team (Late st Contact Info) Description 12/04/2019 9:40 AM DIRECTOR ZONE Office Visit [facility] Bone Marrow Transplant [address] [facility] Advanced Medicine 7th [place], [place] [address] Narcisa Kilgore NP [address] DIV IM BONE MARROW TRANSPLANT, [address] [place] [address] 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); Wfpel-eqshuh-wmyy disease (CMS/HCC); S/P allogeneic bone marrow transplant (CMS/HCC); Type 2 diabetes mellitus with hyperosmolarity without coma, with long-term current use of insulin (CMS/HCC); 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); 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CMS/HCC); Type 2 diabetes mellitus with hyperglycemia, with long-term current use of insulin ([facility]) Social History Tobacco Use Types Packs/Day Years Used Date Smoking Tobacco: Every Day Smokeless Tobacco: Never Comments:Pt not interested i n smoking cessation program Sex and Gender Information Value Date Recorded Sex Assigned at Not on file Legal Sex Male 10:48 AM DIRECTOR ZONE Gender Identity Not on file Sexual Orientation Not on file documented as of this encounter Last Filed Vital Signs Vital Sign Reading Time Taken Comments Blood Pressure 100/69 12/04/2019 10:18 AM DIRECTOR ZONE Pulse 106 12/04/2019 10:18 AM DIRECTOR ZONE Temperature 36.6 ??C (97.9 ??F) 12/04/2019 10:[address] Respiratory Rate 18 12/04/2019 10:18 AM DIRECTOR ZONE Oxygen Saturation 92% 12/04/2019 10:18 AM DIRECTOR ZONE Inhaled Oxygen Concentration - - Weight 80.8 kg (178 lb 3.2 oz) 12/04/2019 10:18 AM DIRECTOR ZONE Height - - Body Mass Index 25.57 11/20/2019 11:58 AM DIRECTOR ZONE documented in this encounter Ordered Prescriptions Prescription Sig Dispense Quantity Refills Last Filled Start Date End Date voriCONAZOLE (VFEND) 200 mg tabletIndications:Pr ophylaxis, Medical Take 1 tablet (200 mg total) by mouth 2 (two) times a day 60 tablet 6 12/04/2019 0 HUMALOG KWIKPEN INSULIN 100 unit/mL insulin penIndications:type 2 diabetes mellitus Inject 20 Units under the skin daily with breakfast 6 mL 12/04/2019 0 BASAGLAR KWIKPEN U-100 INSULIN 100 unit/mL (3 mL) insulin penIndications:Type 2 diabetes mellitus with hyperosmolarity without coma, with long-term current use of insulin ([facility]) Inject 45 Units under the skin nightly 13.5 mL 12/04/2019 0 documented in this encounter Progress Notes * Narcisa Kilgore NP - 12/04/2019 12:00 AM CST [facility] DEPARTMENT OF MEDICINE - SECTION OF BMT & LEUKEMIA [address] [place] [id number]- PHONE: FAX: PATIENT NAME: BRI JONES : 1965 RSOY: 12/04/2019 DISCHARGE DATE: 12/04/2019 Patient has a history of AML. 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 TREATMENT HISTORY: 1. Induction with 7+3 and HiDAC consolidation x3. 2. Decitabine maintenance on the [facility] [address] protocol. 3. Relapsed disease, status post AMD/[facility]. 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 TRANSPLANT HISTORY: Status post an allogeneic transplant with busulfan and Cytoxan on the [facility] allogeneic study with hissister, 08/27 match; with day 0 on 11/09/2009. INTERVAL HISTORY: He recently was discharged from the hospital on November 28 after having a COPD/lung GVHD exacerbation. He was treated with antibiotics and prednisone. The prednisone was tapered down and he was discharged out on Augmentin. He was also started on Jakafi for chronic GVHD of his lungs and he was put on azithromycin and voriconazole as prophylaxis. He also is having issues with his blood sugars for some time now and they changed his insulin regimen. He is still running high in the morning, 200 in the morning and 300 to 400 throughout the day. I reached out to Dr. Gibson in Endocrine and she call him too, but at this point I upped his Lantus to 45 and his NPH to 20 and then he can increase to sliding scale and he will continue to monitor it. We will also try to get him in to see her when he comes back on January 01. He says he is feeling better. His oxygenation is improving. He has can walka little bit further without having shortness of breath, so we are going to continue the current regimen and then we will see him back in 4 weeks for re-evaluation. We will see if Endocrine can see him as well that same day. He had AYUSH in the hospital which was 65% for his EF. He continues on the Lasix as well for some congestive heart failure. PHYSICAL EXAM: General: He is alert and oriented x3, in no acute distress. Vital Signs: His current weight is 80.8 kg, blood pressure 100/69, pulse 106, respirations 18, temperature is 36.6 and O2 sat is 92 off his oxygen and he goes up to 96 on oxygen. HEENT: Pupils are equal, round, and reactive [...] DATA: Patient's white blood cell count is 10, hemoglobin 12, hematocrit 38, platelets are 235. ANC is 5.1. Magnesium is 1.4. LDH is 512. CMP: Sodium is 137, potassium 4.6, chloride 88, CO2 is 33, BUN 13, creatinine 0.9, glucose 426, calcium 9.7 bilirubin 0.3, alk phos 183, AST is 49, ALT is 67. 1. Patient with a history of acute myeloid leukemia post an allo transplant 3677 days ago. 2. Chronic oeyle-bzegjj-kuye disease. He was put on Jakafi EAP 5 mg b.i.d. cycle 1 day 8 and MMF 1 g b.i.d., tacro 0.5 every other day, and his prednisone dose is down to 10 mg a day. 3. Pneumonia. He has finished Augmentin 875 b.i.d., he had a 14 day course. 4. Infectious disease prophylaxis. He is on acyclovir 400 t.i.d., azithromycin 250 three times a week, Bactrim on Mondays and , and voriconazole 200 b.i.d. 5. History of deep venous thrombosis and pulmonary embolus. He is on Xarelto 20 mg a day. 6. Chronic obstructive pulmonary disease. He has Ventolin inhaler, Trelegy inhaler, albuterol inhaler, and Singulair 10 a day. 7. Diabetes. He is on Lantus which he was on 40 units at night that I upped to 45. He is on NPH from 15 and in the morning I upped him to 20 and is on the sliding scale with food and outside of food. 8. Neuropathy. He is on gabapentin 300 four times a day. 9. Congestive heart failure. He has Lasix 20 mg a day. He is scheduled to return to see back in 4 weeks. ELECTRONICALLY SIGNED - 12/04/2019 02:42 PM Narcisa Kilgore RN, BCFNP Nurse Practitioner In collaboration with Josué DelV alle M.D. AKIKO[employer] CTOR ZONE documented in this encounter Nursing Notes * Kari Mcbride, RN - 12/04/2019 9:40 AM CST ROV with Cameron Kilgore TCV Admit 1-3 Discharge 1-11 AML s/p Sib Allo [id number] Bu/Cy day +367 Started on EAP Jakafi HRPO 5mg BID Cycle 1 Day +8 GVHD Prophy MMF 1gram BID, tac 0.5mg every other day, pred 20mg Daily TODAY ~No medication changes; finishing Augmentin ~Blood sugars remain in 200's in AM and 400's in afternoon; We are increasing Lantus to 45units, NPH to 20 units and increased the sliding scale. ~Remains on Jakafi EAP as started during admission. Lungs improving, remains on home O2, but increasing his ability to ambulate longer distances ~RTC 2-14 with Cameron Kilgore who is attempting to reach out to Endocrine (Dr. Gibson) to see if pt can be seen same day. ~RTC 3-[address] Del Valle for Cycle 3 and 4 Jakafi dispense (inpt provided 2 cycles per cycle 1 communication) CTOR ZONE documented in this encounter Plan of Treatment Not on file documented as of this encounter Results * (ABNORMAL) CBC with auto differential (01/15/2020 11:35 AM DIRECTOR ZONE) WBC 7.9 3.8 - 9.8 K/cumm ZULEMA DENT Comment:Testing performed by : [facility], [address] [place] [phone] Hgb 14.5 13.8 - 17.2 g/dL ZULEMA DENT Comment:Testing performed by : [facility], [address] [place] [phone] Hct 43.4 40.7 - 50.3 % ZULEMA SOMMERS Comment:Testing performed by : [facility], [address] [place], [place] [id number] Plt 267 140 - 440 K/cumm CERAVTAR [facility] Comment:Testing performed by : [facility], [address] [place], [place] [id number] MPV 8.9 6.8 - 10.4 fL [facility] Comment:Testing performed by : [facility], [address] [place], [place] [id number] RBC 4.28(L) 4.50 - 5.70 M/cumm ZULEMA BJ Comment:Testing performed by : [facility], [address] [place], [place] [id number] MCV 101.3(H) 80.0 - 97.6 fL ZULEMA [facility] Comment:Testing performed by : [facility], [address] [place], [place] [id number] MCH 33.8(H) 26.7 - 33.7 pg [facility] Comment:Testing performed by : [facility], [address] [place], [place] [id number] MCHC 33.3 32.7 - 35.5 g/dL [facility] Comment:Testing performed by : [facility], [address] [place], [place] [id number] RDW CV 14.2 11.8 - 14.6 % [facility] Comment:Testing performed by : [address] [phone] NRBC abs 0.01 0.00 - 0.01 K/cumm ZULEMA [facility] Comment:Testing performed by : [facility], [address] [place] [phone] Blood specimen (specimen) 01/15/2020 11:35 AM DIRECTOR ZONE 01/15/2020 11:37 AM DIRECTOR ZONE us Narcisa Kilgore POLE SHAVER HELPER LAB BLOOD ORDERABLES Pilar l Result [facility] Department [place] [address] * (ABNORMAL) Lactate dehydrogenase (LD) (01/15/2020 11:32 AM DIRECTOR ZONE) Lactate dehydrogenase (LDH) 296(H) 100 - 250 Units/L [facility] Blood specimen (specimen) 01/15/2020 11:32 AM DIRECTOR ZONE 01/15/2020 12:26 PM DIRECTOR ZONE Narcisa Kilgore POLE SHAVER HELPER LAB BLOOD ORDERABLES Pilar pawel Result [facility] Department [place] [address] * (ABNORMAL) Comprehensive metabolic panel (01/15/2020 11:32 AM DIRECTOR ZONE) Pathologist [facility] Sodium 133(L) 135 - 145 mmol/L [facility] Potassium, pl 4.3 3.3 - 4.9 mmol/L [facility] Chloride 92(L) 97 - 110 mmol/L [facility] CO2 28 22 - 32 mmol/L [facility] Anion gap 13 2 - 15 mmol/L [facility] BUN 20 8 - 25 mg/dL [facility] Creatinine 0.83 0.80 - 1.30 mg/dL [facility] Glucose 567(C) 70 - 199 mg/dL [facility] interpretive data was last revised 2017. Calcium 9.3 8.5 - 10.3 mg/dL [facility] Bilirubin, total 0.3 0.1 - 1.2 mg/dL [facility] Protein, pl 7.0 6.5 - 8.5 g/dL [facility] Albumin 4.2 3.5 - 5.0 g/dL [facility] Alk phos 111 40 - 130 Units/L [facility] ALT 18 7 - 55 Units/L [facility] AST 42 10 - 50 Units/L [facility] Blood specimen (specimen) 01/15/2020 11:32 AM DIRECTOR ZONE 01/15/2020 12:26 PM DIRECTOR ZONE Narcisa Kilgore POLE SHAVER HELPER LAB BLOOD ORDERABLES Pilar l Result Performing Organization Address [facility]/ZIP Co de Phone Number [facility] [place] [address] * Type and screen (01/15/2020 11:32 AM DIRECTOR ZONE) Pathologist [facility] ABO Rh A Positive [facility] Ursula, indirect Negative [facility] Blood specimen (specimen) 01/15/2020 11:32 AM DIRECTOR ZONE 01/15/2020 11:49 AM DIRECTOR ZONE Narrative [facility] - 01/15/2020 12:38 PM DIRECTOR ZONE Has the patient had Daratumumab (Darzalex) in the past 6 months?->Unknown Narcisa Kilgore NP LAB BLOOD BANK TEST ORDER SUBHA Final Result Performing Organization Address [facility] de Phone Number [facility] [place] [address] * Cytomegalovirus (CMV) DNA PCR, quantitative Blood (01/15/2020 11:32 AM DIRECTOR ZONE) [facility] CMV DNA Not Detected [facility] Comment: Interpretive Data: The quantifiable range of this assay is 137 IUnits/mL to 9,100,000 IUnits/mL (2.14 log IUnits/mL to 6.96 log IUnits/mL). Testing was performed by the [employer] [employer]/MICHEL TaqMan CMV Test ([employer] Testing performed at [facility] Current interpretive data was last revised on 17. Blood specimen (specimen) 01/15/2020 11:32 AM DIRECTOR ZONE 01/15/2020 12:19 PM DIRECTOR ZONE us Narcisa Kilgore NP LAB MICROBIOLOGY - GENERA L ORDERABLES Final Result [facility] Department [place] [address] documented in this encounter Visit Diagnoses Diagnosis Acute myeloid leukemia in remission (HCC)- Primary Acute myeloid leukemia in remission Thjem-jcovaf-hpqw disease (HCC) S/P allogeneic bone marrow transplant (HCC) Type 2 diabetes mellitus with hyperosmolarity without coma, with long-term current use of insulin (HCC) AML (acute myeloid leukemia) in remission (HCC) 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HCC) Type 2 diabetes mellitus with hyperglycemia, with long-term current use of insulin (HCC) Type 2 diabetes mellitus with hyperosmolarity without coma, with long-term current use of insulin (HCC) Paxqp-pqnava-qwqt disease (HCC) Acute myeloid leukemia in remission (HCC) Acute myeloid leukemia in remission S/P allogeneic bone marrow transplant (HCC) documented in this encounter Discontinued Medications Medication Sig Discontinue Reason Start Date End Da te BASAGLAR KWIKPEN U-100 INSULIN 100 unit/mL (3 mL) insulin penIndications:Type 2 diabetes mellitus with hyperosmolarity without coma, with long-term current use of insulin (HCC) Inject 40 Units under the skin nightly Reorder 11/28/2019 12/04/2019 HUMALOG KWIKPEN INSULIN 100 unit/mL insulin penIndications:type 2 diabetes mellitus Inject 15 Units under the skin daily with breakfast Reorder 11/28/2019 12/04/2019 voriCONAZOLE (VFEND) 200 mg tabletIndications:Prophyl axis, Medical Take 1 tablet (200 mg total) by mouth 2 (two) times a day Reorder 11/28/2019 12/04/2019 documented as of this encounter 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
--- OUTSIDE RECORDS SUMMARY | 2024-11-22 11:03 | XMS_ITS | Encounter Summary ---
Author Organization [facility] Address [address] [place] [address] Phone Care Team Providers Care Carbon Setter Name Role Phone Kirt Lindsay DO Primary Care Provider [phone] Josué Del Valle MD PhD Unavailable [phone] Encounter Details Date Type Department Care Team (Late st Contact Info) Description 12/28/2019 Orders Only [facility] Bone Marrow Transplant [address] [facility] Advanced Medicine 7th Floor, [place] [address] Silva Mortensen RMA 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CMS/HCC) (Primary Dx) Social History Tobacco Use Types Packs/Day Years Used Date Smoking Tobacco: Every Day Smokeless Tobacco: Never Comments:Pt not interested i n smoking cessation program Sex and Gender Information Value Date Recorded Sex Assigned at Not on file Legal Sex Male 10:48 AM DIE CUTTER DIAMOND Gender Identity Not on file Sexual Orientation Not on file documented as of this encounter Ordered Prescriptions Prescription Sig Dispense Quantity Refills Last Filled Start Date End Date predniSONE (DELTASONE) 10 mg tabletIndications: 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HCC) Take 1 tablet (10 mg) by mouth daily 30 tablet 12/28/2019 01/15/2020 documented in this encounter Plan of Treatment Not on file documented as of this encounter Visit Diagnoses Diagnosis 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HCC)- Primary documented in this encounter Discontinued Medications Medication Sig Discontinue Reason Start Date End Da te predniSONE (DELTASONE) 10 mg tablet Take 1 tablet (10 mg) by mouth daily Reorder 11/28/2019 12/28/2019 documented as of this encounter 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 Care Teams Carbon Setter Relationship Specialty Start Date End Date Kirt Lindsay DO PCP - General 05/02/17 11/22/20 Josué Del Valle MD PhD Medical Oncologist/Sleep Technician Medical Oncology 08/26/19 documented as of this encounter
--- OUTSIDE RECORDS SUMMARY | 2024-11-22 11:03 | XMS_ITS | Encounter Summary ---
Author Organization [facility] Address [address] [place] [address] Phone Care Team Providers Care Pick And Shovel Man Name Role Phone Kirt Lindsay DO Primary Care Provider [phone] Josué Del Valle MD PhD Unavailable [phone] Encounter Details Date Type Department Care Team (Late st Contact Info) Description 01/15/2020 10:45 AM PRINTER REPAIR TECHNICIAN Lab [facility] Oncology [address] [facility] 7th [place] [address] [place] [address] Type 2 diabetes mellitus with hyperosmolarity without coma, with long-term current use of insulin (CMS/HCC); Ecuck-onpzkf-fupo disease (CMS/HCC); 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); S/P allogeneic bone marrow transplant ([facility]/HCC) Social History Tobacco Use Types Packs/Day Years Used Date Smoking Tobacco: Every Day Smokeless Tobacco: Never Comments:Pt not interested i n smoking cessation program Sex and Gender Information Value Date Recorded Sex Assigned at Not on file Legal Sex Male 10:48 AM PRINTER REPAIR TECHNICIAN Gender Identity Not on file Sexual Orientation Not on file documented as of this encounter Plan of Treatment Not on file documented as of this encounter Procedures Procedure Name Priority Date/Time Associated Diagnosis Comments DIFFERENTIAL AUTO Routine 01/15/2020 11: 35 AM PRINTER REPAIR TECHNICIAN Qcggm-glchsf-igtk disease (CMS/HCC) 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) S/P allogeneic bone marrow transplant (CMS/HCC) CBC WITH AUTO DIFFERENTIAL Routine 01/15/2020 11:35 AM PRINTER REPAIR TECHNICIAN Vhaks-vsfibr-kyvb disease (CMS/HCC) 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) S/P allogeneic bone marrow transplant (CMS/HCC) CRITICAL RESULT CALLBACK CHEMISTRY Routine 01/15/2020 11:33 AM PRINTER REPAIR TECHNICIAN Type 2 diabetes mellitus with hyperosmolarity without coma, with long-term current use of insulin (CMS/HCC) VITAMIN D 25 HYDROXY Routine 01/15/2020 11:33 AM PRINTER REPAIR TECHNICIAN Type 2 diabetes mellitus with hyperosmolarity without coma, with long-term current use of insulin (CMS/HCC) HEMOGLOBIN A1C Routine 01/15/2020 11:33 AM PRINTER REPAIR TECHNICIAN Type 2 diabetes mellitus with hyperosmolarity without coma, with long-term current use of insulin ([facility]/HCC) COMPREHENSIVE METABOLIC PANEL Routine 01/15/2020 11:33 AM PRINTER REPAIR TECHNICIAN Type 2 diabetes mellitus with hyperosmolarity without coma, with long-term current use of insulin ([facility]/HCC) CYTOMEGALOVIRUS (CMV) DNA, QUANT GEN LAB Routine 01/15/2020 11:32 AM PRINTER REPAIR TECHNICIAN Apvas-xdqrlb-brft disease (CMS/HCC) 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) S/P allogeneic bone marrow transplant (CMS/HCC) CRITICAL RESULT CALLBACK CHEMISTRY Routine 01/15/2020 11:32 AM PRINTER REPAIR TECHNICIAN Pldvh-kqqbnf-vcqy disease (CMS/HCC) 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) S/P allogeneic bone marrow transplant (CMS/HCC) TYPE AND SCREEN Routine 01/15/2020 11:32 AM PRINTER REPAIR TECHNICIAN Vnifr-ywaobm-hjzd disease (CMS/HCC) 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) S/P allogeneic bone marrow transplant (CMS/HCC) LACTATE DEHYDROGENASE Routine 01/15/2020 11:32 AM PRINTER REPAIR TECHNICIAN Emfsu-ujrdxf-ljkm disease (CMS/HCC) 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) S/P allogeneic bone marrow transplant (CMS/HCC) COMPREHENSIVE METABOLIC PANEL Routine 01/15/2020 11:32 AM PRINTER REPAIR TECHNICIAN Cqwbk-wrxagx-nmbw disease (CMS/HCC) 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) S/P allogeneic bone marrow transplant (CMS/HCC) documented in this encounter Results * Differential, auto (01/15/2020 11:35 AM PRINTER REPAIR TECHNICIAN) Neutrophil abs 6.0 1.8 - 6.6 K/cumm [facility] Comment:Testing performed by : [facility], [address] [place] [phone] Lymphocyte abs 1.4 1.2 - 3.3 K/cumm [facility] Comment:Testing performed by : [facility], [address] [place] [phone] Monocyte abs 0.3 0.2 - 1.2 K/cumm [facility] Comment:Testing performed by : [facility], [address] [place] [phone] Eosinophil abs 0.0 0.0 - 0.5 K/cumm [facility] Comment:Testing performed by : [facility], [address] [place] [phone] Basophil abs 0.0 0.0 - 0.2 K/cumm [facility] Comment:Testing performed by : [facility], [address] [place] [phone] Neutrophil pct 76.7 % [facility] Comment: Interpretive Data Percent cell count reference ranges are not reported, since discordance with absolute values may lead to misinterpretation of CBC data. Current Interpretive Data was last revised on 2018. Testing performed by: [facility], [address] [place] [phone] Lymphocyte pct 18.3 % [facility] Comment: Interpretive Data Percent cell count reference ranges are not reported, since discordance with absolute values may lead to misinterpretation of CBC data. Current Interpretive Data was last revised on 2018. Testing performed by: [facility], [address] [place] [phone] Monocyte pct 4.4 % [facility] Comment:Testing performed by : [facility], [address] [place] [phone] Eosinophil pct 0.1 % [facility] Comment:Testing performed by : [facility], [address] [place] [phone] Basophil pct 0.5 % [facility] Comment:Testing performed by : [facility], [address] [place] [phone] Blood specimen (specimen) 01/15/2020 11:35 AM PRINTER REPAIR TECHNICIAN 01/15/2020 11:37 AM PRINTER REPAIR TECHNICIAN us Narcisa Kilgore ASSISTANT DIRECTOR OF FINANCIAL AID LAB BLOOD ORDERABLES Pilar armas Result Performing Organization Address City/State/[facility] Co de Phone Number ZULEMA [facility] Department [place] [address] * (ABNORMAL) CBC with auto differential (01/15/2020 11:35 AM PRINTER REPAIR TECHNICIAN) WBC 7.9 3.8 - 9.8 K/cumm [facility] Comment:Testing performed by : [facility], [address] [place] [phone] Hgb 14.5 13.8 - 17.2 g/dL [facility] Comment:Testing performed by : [facility], [address] [place] [phone] Hct 43.4 40.7 - 50.3 % ZULEMA DENT Comment:Testing performed by : [facility], [address] [place] [phone] Plt 267 140 - 440 K/cumm [facility]ULEMA [facility]ENT Comment:Testing performed by : [address] [phone] MPV 8.9 6.8 - 10.4 fL [facility] Comment:Testing performed by : [facility], [address] [place] [phone] RBC 4.28(L) 4.50 - 5.70 M/cumm ZULEMA DENT Comment:Testing performed by : [facility], [address] [place], [place] [phone] MCV 101.3(H) 80.0 - 97.6 fL ZULEMA DENT Comment:Testing performed by : [facility], [address] [place] [phone] MCH 33.8(H) 26.7 - 33.7 pg ZULEMA DENT Comment:Testing performed by : [facility], [address] [place] [phone] MCHC 33.3 32.7 - 35.5 g/dL ZULEMA DENT Comment:Testing performed by : [facility], [address] [place] [phone] RDW CV 14.2 11.8 - 14.6 % ZULEMA DENT Comment:Testing performed by : [facility], [address] [place] [phone] NRBC abs 0.01 0.00 - 0.01 K/cumm [facility] Comment:Testing performed by : [facility], [address] [place] [phone] Blood specimen (specimen) 01/15/2020 11:35 AM PRINTER REPAIR TECHNICIAN 01/15/2020 11:37 AM PRINTER REPAIR TECHNICIAN Narcisa Kilgore ASSISTANT DIRECTOR OF FINANCIAL AID LAB BLOOD ORDERABLES Pilar l Result ZULEMA [facility] Department [place] [address] * Critical Result Callback Chemistry (01/15/2020 11:33 AM PRINTER REPAIR TECHNICIAN) Date Notified [id number] ZULEMA DENT Time Notified 1227 ZULEMA DENT TestName Glucose ZULEMA SOMMERS Called/Read Back Penny DENT Credentials RN ZULEMA DENT Called By RAMSEY SOMMERS Blood specimen (specimen) 01/15/2020 11:33 AM PRINTER REPAIR TECHNICIAN 01/15/2020 11:55 AM PRINTER REPAIR TECHNICIAN Eneida Gibson MD LAB BLOOD ORDERABLES Final Resul t Performing Organization Address [facility] de Phone Number [facility] Department [place] [address] * (ABNORMAL) Hemoglobin A1c (01/15/2020 11:33 AM PRINTER REPAIR TECHNICIAN) Hgb A1C 12.4(H) 4.0 - 5.6 % [facility] Estimated Average Glucose 309 mg/dL [facility] Comment: The ADA recommends reporting an estimated Average Glucose (eAG) with all Hemoglobin A1c results using the equation derived from a study of 507 normal and diabetic adults. ??Minority populations were underrepresented and children were not included. ?? (Diabetes Care 31:7132-4924, 2008). ??The eAG is not equivalent to a fasting glucose. Blood specimen (specimen) 01/15/2020 11:33 AM PRINTER REPAIR TECHNICIAN 01/15/2020 11:49 AM PRINTER REPAIR TECHNICIAN Eneida Gibson MD LAB BLOOD ORDERABLES Final Resul t Performing Organization Address [facility] de Phone Number [facility] Department [place] [address] * (ABNORMAL) Comprehensive metabolic panel (01/15/2020 11:33 AM PRINTER REPAIR TECHNICIAN) Pathologist [facility] Sodium 132(L) 135 - 145 mmol/L [facility] Potassium, pl 4.8 3.3 - 4.9 mmol/L [facility] Comment:Hemolyzed; Potassium value may be falsely elevated by as much as 0.6-1.0 mmol/L. Suggest redraw and reanalysis. Chloride 92(L) 97 - 110 mmol/L [facility] CO2 26 22 - 32 mmol/L [facility] Anion gap 14 2 - 15 mmol/L [facility] BUN 20 8 - 25 mg/dL [facility] Creatinine 0.82 0.80 - 1.30 mg/dL [facility] Glucose 569(C) 70 - 199 mg/dL [facility] Comment: Interpretive Data Fasting glucose >/= 126 [...] 2017. Calcium 9.2 8.5 - 10.3 mg/dL [facility] Bilirubin, total 0.3 0.1 - 1.2 mg/dL [facility] Protein, pl 7.0 6.5 - 8.5 g/dL [facility] Albumin 4.1 3.5 - 5.0 g/dL [facility] Alk phos 110 40 - 130 Units/L [facility] ALT 19 7 - 55 Units/L [facility] AST 47 10 - 50 Units/L [facility] Comment:Hemolyzed; result ma y be falsely elevated Blood specimen (specimen) 01/15/2020 11:33 AM PRINTER REPAIR TECHNICIAN 01/15/2020 11:49 AM PRINTER REPAIR TECHNICIAN Eneida Gibson MD LAB BLOOD ORDERABLES Final Resul t Performing Organization Address [facility] Co de Phone Number [facility] Department [place] [address] * (ABNORMAL) Vitamin D 25 hydroxy (01/15/2020 11:33 AM PRINTER REPAIR TECHNICIAN) Vitamin D 25-OH 20(L) 30 - 80 ng/mL [facility] Blood specimen (specimen) 01/15/2020 11:33 AM PRINTER REPAIR TECHNICIAN 01/15/2020 11:49 AM PRINTER REPAIR TECHNICIAN Eneida Gibson MD LAB BLOOD ORDERABLES Final Resul t Performing Organization Address [facility] Co de Phone Number [facility] Department [place] [address] * Critical Result Callback Chemistry (01/15/2020 11:32 AM PRINTER REPAIR TECHNICIAN) Date Notified [id number] [facility] Not[facility] TestName Glucose ZULEMA DENT Called/Read Back Nikhilmagy Menondyllan POOLE [facility] Credentials RN ZULEMA DENT Called By Ramsey [facility] Blood specimen (specimen) 01/15/2020 11:32 AM PRINTER REPAIR TECHNICIAN 01/15/2020 12:32 PM PRINTER REPAIR TECHNICIAN Narcisa Kilgore ASSISTANT DIRECTOR OF FINANCIAL AID LAB BLOOD ORDERABLES Pilar l Result [facility] [place] [address] * Cytomegalovirus (CMV) DNA PCR, quantitative Blood (01/15/2020 11:32 AM PRINTER REPAIR TECHNICIAN) Pathologist [facility] CMV DNA Not Detected [facility] Comment: Interpretive Data: The quantifiable range of this assay is 137 IUnits/mL to 9,100,000 IUnits/mL (2.14 log IUnits/mL to 6.96 log IUnits/mL). Testing was performed by the [employer]MICHEL TaqMan CMV Test ([employer] Testing performed at [facility] Current interpretive data was last revised on 17. Blood specimen (specimen) 01/15/2020 11:32 AM PRINTER REPAIR TECHNICIAN 01/15/2020 12:19 PM PRINTER REPAIR TECHNICIAN Narcisa Kilgore NP LAB MICROBIOLOGY - GENERA L ORDERABLES Final Result [facility] One [facility] [place] [address] * Type and screen (01/15/2020 11:32 AM PRINTER REPAIR TECHNICIAN) Pathologist [facility] ABO Rh A Positive [facility] Ursula, indirect Negative [facility] Blood specimen (specimen) 01/15/2020 11:32 AM PRINTER REPAIR TECHNICIAN 01/15/2020 11:49 AM PRINTER REPAIR TECHNICIAN Narrative [facility] - 01/15/2020 12:38 PM PRINTER REPAIR TECHNICIAN Has the patient had Daratumumab (Darzalex) in the past 6 months?->Unknown Narcisa Kilgore ASSISTANT DIRECTOR OF FINANCIAL AID LAB BLOOD BANK TEST ORDER SUBHA Final Result [facility] Department [place] [address] * (ABNORMAL) Comprehensive metabolic panel (01/15/2020 11:32 AM PRINTER REPAIR TECHNICIAN) Sodium 133(L) 135 - 145 mmol/L [facility] Potassium, pl 4.3 3.3 - 4.9 mmol/L [facility] Chloride 92(L) 97 - 110 mmol/L [facility] CO2 28 22 - 32 mmol/L [facility] Anion gap 13 2 - 15 mmol/L [facility] BUN 20 8 - 25 mg/dL [facility] Creatinine 0.83 0.80 - 1.30 mg/dL [facility] Glucose 567(C) 70 - 199 mg/dL [facility] Comment: Interpretive Data Fasting glucose >/= 126 [...] 2017. Calcium 9.3 8.5 - 10.3 mg/dL [facility] Bilirubin, total 0.3 0.1 - 1.2 mg/dL [facility] Protein, pl 7.0 6.5 - 8.5 g/dL [facility] Albumin 4.2 3.5 - 5.0 g/dL [facility] Alk phos 111 40 - 130 Units/L [facility] ALT 18 7 - 55 Units/L [facility] AST 42 10 - 50 Units/L [facility] Blood specimen (specimen) 01/15/2020 11:32 AM PRINTER REPAIR TECHNICIAN 01/15/2020 12:26 PM PRINTER REPAIR TECHNICIAN Narcisa Kilgore ASSISTANT DIRECTOR OF FINANCIAL AID LAB BLOOD ORDERABLES Pilar l Result [facility] [place] [address] * (ABNORMAL) Lactate dehydrogenase (LD) (01/15/2020 11:32 AM PRINTER REPAIR TECHNICIAN) Lactate dehydrogenase (LDH) 296(H) 100 - 250 Units/L [facility] Blood specimen (specimen) 01/15/2020 11:32 AM PRINTER REPAIR TECHNICIAN 01/15/2020 12:26 PM PRINTER REPAIR TECHNICIAN Narcisa Kilgore ASSISTANT DIRECTOR OF FINANCIAL AID LAB BLOOD ORDERABLES Pilar l Result Performing Organization Address [facility] Co de Phone Number 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
--- OUTSIDE RECORDS SUMMARY | 2024-11-22 11:04 | XMS_ITS | Encounter Summary ---
Author Organization [facility] Address [address] [place] [address] Phone Care Team Providers Care Surveillance Investigator Name Role Phone Kirt Lindsay DO Primary Care Provider [phone] Josué Del Valle MD PhD Unavailable Encounter Details Date Type Department Care Team (Late st Contact Info) Description 11/20/2019 10:20 AM ENTERTAINER & COMIC Office Visit [facility] Bone Marrow Transplant [address] [facility] Advanced Medicine 7th Floor, [place] [address] Narcisa Kilgore NP [address] DIV IM BONE MARROW TRANSPLANT, [address] [place], [place] [id number] 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); Shkrr-pzsows-hvdq disease (CMS/HCC); 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CMS/HCC) Social History Tobacco Use Types Packs/Day Years Used Date Smoking Tobacco: Every Day Smokeless Tobacco: Never Comments:Pt not interested i n smoking cessation program Sex and Gender Information Value Date Recorded Sex Assigned at Not on file Legal Sex Male 10:48 AM ENTERTAINER & COMIC Gender Identity Not on file Sexual Orientation Not on file documented as of this encounter Last Filed Vital Signs Vital Sign Reading Time Taken Comments Blood Pressure 100/63 11/20/2019 10:11 AM ENTERTAINER & COMIC Pulse 93 11/20/2019 10:11 AM ENTERTAINER & COMIC Temperature 36.6 ??C (97.8 ??F) 11/20/2019 10:[address] Respiratory Rate 18 11/20/2019 10:11 AM ENTERTAINER & COMIC Oxygen Saturation 97% 11/20/2019 10:11 AM ENTERTAINER & COMIC Inhaled Oxygen Concentration - - Weight 77.4 kg (170 lb 9.6 oz) 11/20/2019 10:11 AM ENTERTAINER & COMIC Height - - Body Mass Index 24.48 08/22/2019 4:10 PM CDT documented in this encounter Progress Notes * Narcisa Kilgore NP - 11/20/2019 12:00 AM CST [facility] DEPARTMENT OF MEDICINE - SECTION OF BMT & LEUKEMIA [address] [place] [address]- PHONE: FAX: PATIENT NAME: BRI LUNDY : 1965 ROSY: 11/20/2019 IDENTIFYING INFORMATION: The patient has a history of AML. 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 TREATMENT HISTORY: 1. Induction with 7+3 and HiDAC consolidation x3. 2. Decitabine maintenance on the CALGB 98013 protocol. 3. Relapsed disease, status post [facility]. 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 TRANSPLANT HISTORY: Status post an allogeneic transplant with busulfan and Cytoxan on the [facility] allogeneic study with hissister, 08/27 match; with day 0 on 11/09/2009. OTHER PAST MEDICAL ISSUES: 1. 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 2. Diabetes, uncontrolled. 3. Hyperlipidemia, questionably controlled. 4. Osteopenia. 5. History of DVTs and PE. INTERVAL HISTORY: The patient was recently discharged from a local hospital after having an episode of worsening shortness of breath, and he was found to have CHF and was treated. He had a cardiac echo, which is scanned into the computer, and this showed an EF of 55. He was put on Lasix. He still has significant lower extremity swelling. He still has persistent shortness of breath with difficulty walking even 12 to 15 feet without having significant shortness of breath. He has been off his prednisone for a while, and thought that may be contributing to his symptoms, but with his hemoglobin A1c of 13, we probably need to think of an alternative treatment for his GVHD. He also needs most likely a repeat CT and PFT, and tweaking of his medications, with Jakafi as a possibility for his lung GVHD. He also needsimprovement in his diabetic regimen. He is here to see Dr. Gibson, and he is supposed to be on insulin. It is hard for him to get here due to social issues, but we had a long discussion that if we need to start working a little bit better on treating his diabetes, heart dysfunction, and GVHD, then he is going to have to figure out how to get here more often, and he is agreeable. MEDICATIONS: Full medication review with the patient. See Allscripts/plan for complete list of medications. REVIEW OF SYSTEMS: Twelve-point systems reviewed and positive as above in Interval History. All other systems negative. PHYSICAL EXAMINATION: General: Patient is alert and oriented x3, in no acute distress. Vital Signs: His weight is 77 kg, blood pressure 100/63, pulse 93, respirations 18, temperature is 36.6, and O2 saturation was 97% on 2 L. HEENT: Pupils are equal, round, and reactive to light and accommodation. Sclerae anicteric. Neck: Supple without lymphadenopathy. Cardiac: S1 and S2. Regular rate without murmur or gallop. Lungs: Coarse of breath sounds bilaterally. Abdomen: Soft, nontender, and nondistended with positive bowel sounds. No hepatosplenomegaly. Extremities: +2 lower extremity swelling. Skin: Unremarkable. Neurologic: Grossly intact. No neurological deficit. LABORATORY DATA: Patient's white blood cell count is 14, hemoglobin 14, hematocrit 42, platelets are 291, ANC is 8.6. Magnesium 1.7. LDH is 428. Vitamin D is pending. IgG is 900. Hemoglobin A1c is 13.5. Sodium is 138, potassium 3.9, chloride 97, CO2 is 35, BUN 15, creatinine 0.7, glucose 402, calcium 9.4, bilirubin0.3, AST is 18, ALT is 30, alk phos 118. IMPRESSION AND PLAN: 1. Patient with history of acute myeloid leukemia. He is post allogeneic with a sibling in October2009, with Bu/Cy, 3663 days ago. 2. Gblpy-poehqe-nqvv disease of his eyes, skin, and lungs. He is on MMF 1 g b.i.d. and tacrolimus 0.5 every other day. He used to be on prednisone 40, which he has not been on due to that it was not able to get filled at his pharmacy. 3. Diabetes. He is on insulin and still has hemoglobin A1c of 13. He has also been on metformin with his insulin in the past. ? if he is on it now. 4. Infectious disease prophylaxis. He is on acyclovir and Bactrim. 5. History of deep venous thromboses. He has had Xarelto 20 mg a day in the past. 6. Lung GVHD/chronic obstructive pulmonary disease. He had Spiriva and Trelegy inhalers in the past, and I am not sure if he is taking those now. 7. Neuropathy. He is on gabapentin daily. 8. New diagnosis of diastolic dysfunction and congestive heart failure. He is on Lasix 20 mg a day. 9. History of vitamin D deficiency. He is on vitamin D and calcium. It is unclear what actual medications that he is taking at this time. He is scheduled to be admitted to the hospital, and we will see if we can get him on a different regimen for lung GVHD, diurese him, get him a cardiology consult, have Cardiology follow-up here as an outpatient, and hopefully, wecan get him in a better position. He is scheduled to return to see us after hospitalization. ELECTRONICALLY SIGNED - 11/20/2019 02:43 PM Narcisa Kilgore RN, BCFNP Nurse Practitioner In collaboration with Josué Del Valle M.D. AKIKO/ethan RTAINER & COMIC documented in this encounter Nursing Notes * Kari cMbride RN - 11/20/2019 10:20 AM CST ROV with Cameorn Kilgore ~NOW urgent UNSCHEDULED ADMIT from clinic for w/u for lung gvhd and cardiology w/u. ~AML s/p Sib Allo [id number] Bu/Cy day +[id number]. We are unsure which medications he is technically still on as he has not had routine f/u with us due to multiple social issues and health condition. He has had 2 recent admissions, August and the last at [facility] in end of September. GVHD Prophy was MMF 1gram BID, tac 0.5mg every other day, and pred 40mg QD. Again not sure what he is really taking. He stated last admission was for significant SOB and was told he had CHF/Diastolic dysfunction and was discharged on Lasix as only med change. He has history of probably pulmonary gvhd? Hgb A1C is 13today. He arrived in a wheelchair on O2 by ND, Liters not documented in [facility], at 97%. Admitting to open bed on 8800 under [facility] for Cardiac w/u and eval, and w/u for pulmonary gvhd with possible Jakafi start? Would need PFT and Chest CT if able. Recent Cardiac ECHO in [facility] performed 10-14. RTAINER & COMIC documented in this encounter Plan of Treatment Not on file documented as of this encounter Visit Diagnoses Diagnosis AML (acute myeloid leukemia) in remission (HCC)- Primary Pnnvh-gretxh-enns disease (HCC) H/O allogeneic bone marrow transplant (HCC) documented in this encounter Discontinued Medications Medication Sig Discontinue Reason Start Date End Da te predniSONE (DELTASONE) 10 mg tablet Take 20 mg by mouth daily 10/28/2019 11/20/2019 documented as of this encounter Historical Medications * This list may reflect changes made after this encounter. traMADol (ULTRAM) 50 mg tabletIndication s:AML (acute myeloid leukemia) in remission (HCC),Graft-vers us-host disease (HCC),H/O allogeneic bone marrow transplant (HCC) TAKE 1 TABLET BY MOUTH EVERY 6 HOURS NEEDED FOR PAIN (MAX OF 3 TABLETS PER DAY) 0 10/08/2019 1 predniSONE (DELTASONE) 10 mg tablet Take 20 mg by mouth daily 0 10/28/2019 0 HYDROcodone-acet aminophen (NORCO) 5-325 mg per tabletIndication s:AML (acute myeloid leukemia) in remission (HCC),Graft-vers us-host disease (HCC),H/O allogeneic bone marrow transplant (HCC) Take 1 tablet by mouth every 6 (six) hours as needed 0 10/17/2019 1 ARPITA ELLIPTA 100-62.5-25 mcg inhalerIndicatio ns:AML (acute myeloid leukemia) in remission (HCC),Graft-vers us-host disease (HCC),H/O allogeneic bone marrow transplant (HCC) INHALE 1 PUFF BY INHALATION ROUTE ONCE DAILY AT THE SAME TIME EACH DAY. RINSE SPIT AFTER USE. DON T USE WITH OTHER INHALERS. STOP ADVAIR AND 0 10/02/2019 0 DOXYCYCLINE HYCLATE 100 mg capsuleIndicatio ns:AML (acute myeloid leukemia) in remission (HCC),Graft-vers us-host disease (HCC),H/O allogeneic bone marrow transplant (HCC) TAKE 1 CAPSULE BY MOUTH EVERY 12 HOURS 0 09/18/2019 0 added in this encounter 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 Care Teams Surveillance Investigator Relationship Specialty Start Date End Date Kirt Lindsay DO PCP - General 05/02/17 11/22/20 Josué Del Valle MD PhD Medical Oncologist/Construction Teacher Medical Oncology 08/26/19 documented as of this encounter
--- OUTSIDE RECORDS SUMMARY | 2024-11-22 11:04 | XMS_ITS | Encounter Summary ---
Author Organization [facility] Healthcare Address [address] [place] [address] Care Team Providers Care Pigment Mixer Name Role Phone Kirt Lindsay DO Primary Care Provider [phone] Josué Del Valle MD PhD Unavailable [phone] Encounter Details Date Type Department Care Team (Latest Contact Info) Description 11/20/2019 11:[address] RAILWAY LINE INSTALLER - 11/28/2019 1:[address] RAILWAY LINE INSTALLER Hospital Encounter [address] [phone] Josué Del Valle MD PhD [address] [facility] BONE MARROW TRANSPLANT, [address] [place] [address] 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); Vitamin D deficiency; Type 2 diabetes mellitus with hyperosmolarity without coma, with long-term current use of insulin (CMS/HCC); Aeqhi-xzcnny-iuqj disease (CMS/HCC); Type 2 diabetes mellitus with hyperglycemia, with long-term current use of insulin (CMS/HCC) Discharge Disposition: Discharge to home or self care Social History Tobacco Use Types Packs/Day Years Used Date Smoking Tobacco: Every Day Smokeless Tobacco: Never Comments:Pt not interested i n smoking cessation program Sex and Gender Information Value Date Recorded Sex Assigned at Not on file Legal Sex Male 10:[address] RAILWAY LINE INSTALLER Gender Identity Not on file Sexual Orientation Not on file documented as of this encounter Last Filed Vital Signs Vital Sign Reading Time Taken Comments Blood Pressure 123/70 11/28/2019 11:[address] RAILWAY LINE INSTALLER Pulse 72 11/28/2019 11:[address] RAILWAY LINE INSTALLER Temperature 36.9 ??C (98.4 ??F) 11/28/2019 11:[address] Respiratory Rate 18 11/28/2019 11:[address] RAILWAY LINE INSTALLER Oxygen Saturation 100% 11/28/2019 11:[address] RAILWAY LINE INSTALLER Inhaled Oxygen Concentration - - Weight 79.8 kg (176 lb) 11/26/2019 7:[address] RAILWAY LINE INSTALLER Height 177.8 cm (5' 10 ) 11/20/2019 11:[address] RAILWAY LINE INSTALLER Body Mass Index 25.25 11/20/2019 11:[address] RAILWAY LINE INSTALLER documented in this encounter Discharge Diagnoses Diagnosis Complications of stem cell transplant ([facility]) - COMPLICATIONS OF STEM CELL TRANSPLANT Pneumonia due to Streptococcus pneumoniae (CMS/HCC) (HCC) - PNEUMONIA DUE TO STREPTOCOCCUS PNEUMONIAE Pneumonia due to unspecified Streptococcus Acute on chronic diastolic (congestive) heart failure (HCC) - ACUTE ON CHRONIC DIASTOLIC (CONGESTIVE) HEART FAILURE Pneumonitis due to inhalation of food and vomit (CMS/HCC) (HCC) - PNEUMONITIS DUE TO INHALATION OF FOOD AND VOMIT Acute on chronic bwobc-hsrgnj-njjr disease (HCC) - ACUTE ON CHRONIC OZTGM-KJPMYS-ZKPT DISEASE Acute on chronic msfyi-ajwrns-ofzb disease Acute myeloblastic leukemia, in remission (HCC) - ACUTE MYELOBLASTIC LEUKEMIA, IN REMISSION Atelectasis - ATELECTASIS Pulmonary collapse Surgical operation with transplant of whole organ as the cause of abnormal reaction of the patient, or of later complication, without mention of misadventure at the time of the procedure - SURGICAL OPERATION WITH TRANSPLANT OF WHOLE ORGAN THE CAUSE OF ABNORMAL REACTION OF THE PATIENT, Unspecified place or not applicable - UNSPECIFIED PLACE OR NOT APPLICABLE Drug or chemical induced diabetes mellitus with hyperglycemia ([facility]) - DRUG OR CHEMICAL INDUCED DIABETES MELLITUS WITH HYPERGLYCEMIA 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 ([facility]) - DRUG OR CHEMICAL INDUCED DIABETES MELLITUS WITH NEUROLOGICAL COMPLICATIONS WITH DIABETIC POLYNEUROPA Adverse effect of glucocorticoids and synthetic analogues, subsequent encounter - ADVERSE EFFECT OF GLUCOCORTICOIDS AND SYNTHETIC ANALOGUES, SUBSEQUENT ENCOUNTER bed bug exterminator (current) use of insulin (HCC) - POULTRY BUYER (CURRENT) USE OF INSULIN Other specified disorders of bone density and structure, unspecified site - OTHER SPECIFIED DISORDERS OF BONE DENSITY AND STRUCTURE, UNSPECIFIED SITE Vitamin D deficiency, unspecified - VITAMIN D DEFICIENCY, UNSPECIFIED Hypertensive heart disease with heart failure (CMS/HCC) (HCC) - HYPERTENSIVE HEART DISEASE WITH HEART FAILURE Unspecified hypertensive heart disease with heart failure Pure hypercholesterolemia, unspecified - PURE HYPERCHOLESTEROLEMIA, UNSPECIFIED Centrilobular emphysema (HCC) - CENTRILOBULAR EMPHYSEMA Nicotine dependence, unspecified, uncomplicated - NICOTINE DEPENDENCE, UNSPECIFIED, UNCOMPLICATED Other specified interstitial pulmonary diseases (HCC) - OTHER SPECIFIED INTERSTITIAL PULMONARY DISEASES alf (current) use of 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 - HALFWAY (CURRENT) USE OF ANTICOAGULANTS Long-term (current) use of 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 bed bug exterminator (current) use of inhaled steroids - HALFWAY (CURRENT) USE OF INHALED STEROIDS Other manager intermediate (current) drug therapy - OTHER HALFWAY (CURRENT) DRUG THERAPY Dependence on supplemental oxygen - DEPENDENCE ON SUPPLEMENTAL OXYGEN alf (current) use of antibiotics - POULTRY BUYER (CURRENT) USE OF ANTIBIOTICS alf (current) use of systemic steroids - POULTRY BUYER (CURRENT) USE OF SYSTEMIC STEROIDS Personal history of pulmonary embolism - PERSONAL HISTORY OF PULMONARY EMBOLISM Personal history of other venous thrombosis and embolism - PERSONAL HISTORY OF OTHER VENOUS THROMBOSIS AND EMBOLISM Other nonmedicinal substance allergy status - OTHER NONMEDICINAL SUBSTANCE ALLERGY STATUS documented in this encounter Discharge Summaries * Iza Gordon, FUR TRIMMER - 11/27/2019 3:[address] Inpatient Discharge Summary BRIEF OVERVIEW Admitting Provider: Josué Del Valle MD PhD Discharge Provider: Josué Del Valle MD PhD Primary Care Physician at Discharge: Kirt Lindsay DO [phone] Admission Date: 11/20/2019 Discharge Date: 11/28/2019 Admission Location: [facility] Primary Discharge Diagnosis: GVHD Secondary Discharge Diagnosis: Osteopenia Bhxli-vhtfzy-awrs disease ([facility]) AML (acute myeloid leukemia) in remission ([facility]) Type 2 diabetes mellitus ([facility]) Pure hypercholesterolemia Vitamin D deficiency COPD, severe ([facility]/HCC) DVT (deep venous thrombosis) ([facility]) Shortness of breath CHF (congestive heart failure) ([facility]) Peripheral neuropathy Tobacco abuse Pneumonia DETAILS OF HOSPITAL STAY Presenting Problem/History of Present Illness: Per HPI from 11/20/19: 54 y/o male with a h/o 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 He was recently discharged from [facility] last week after having an episode of worsening shortness of breath, which he states has been up and down over the past several months. He was found to have CHF, and discharged on Lasix. He also has significant LE edema, which he states is improved since discharge. ??His most recent cardiac echo in late September showed an EF of 55%. He had reportedly been off his prednisone for a while due to inability to get it filled at his pharmacy. However, he states that he was most recently initiated on a prednisone taper at the OSH of 100mg bid x2days, followed by 80 bid x2 days, at current dose of 60 bid, with goal to continue titration every 2 days until he reached 20mg bid. ?? He was seen in clinic today due to persistent shortness of breath, with difficulty walking 12 to 15feet without significant shortness of breath. ?? He admits on 5L O2. He also endorses productive cough with yellow/green sputum over the past few months. Denies fever, chills, body aches, no N/V/D. He states that he continues on Cellcept 1gm bid and Tacro 0.5mg every other day. His most recent tacro levels today and on 08/23/19 were <1.0. Hospital Course: 54 y/o male with a hx of CHF, COPD, DVT, 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 He admitted with complaint of worsening SOB, on home O2 and steroid taper, after multiple outside hospitalizations over the past few months for similar problems. His glucose was also uncontrolled on admission. HisSOB was thought to possibly be related to chronic lung GVHD, with pneumonia noted on CT. He was continued on prednisone, eventually tapered to 20mg daily at discharge, and initiated on Jakafi on study, with plan for 2 cycles. He was initiated on IV antibiotics for pneumonia, transitioned to oral Augmentin prior to discharge, with plan to continue through 12/04 to complete a 2-week course. Endocrine was consulted regarding his uncontrolled glucose, discharged on new regimen as detailed below. ForGVHD ppx, he continues on Tacro and Cellcept, as well as pred and Jakafi, as noted above. For OI ppx, he discharges on Acyclovir and Vori, and Bactrim for PCP ppx. He discharges on his prior home O2. Discussed each prescription medication needed at discharge, patient stated he only needed new meds:Azithro, Augmentin, Prednisone, Voriconazole, Bactrim - which were sent to his preferred pharmacy. See recent problem list below for further details: Nervous Peripheral neuropathy Continue gabapentin ?? Respiratory Pneumonia POA. Possibly community-acquired and/or 2/[address] Strep pneumoniae pos sputum cx.See SOB problem. ?? Shortness of breath Concern for poss GVHD and/or poss COPD exacerbation, HF, infection. - Recently admitted to OSH with similar symptoms, discharged on pred taper, home O2. Admitted with??increased??O2 requirement, increased MILLER. - TTE (09/2019) EF 55%. - RVP neg. Bld Cx NGTD - Rpt TTE w/ EF 65% - CT chest 11/20/19:??Scattered tree-in-bud and nodular opacities throughout both lungs suggestive ofan acute infectious process. ??Thickened and debris-filled bronchi which are focally worse in the left lower lobe may indicate superimposed aspiration pneumonitis. - Sputum cx 11/21: strep pneumoniae, susceptible to Azithro, Ceftriaxone, pcn, vanc - On Cefe/Vanc (11/20 - 11/27), change to augmentin 11/27 to continue through 12/04 to complete 14-day course - Continue immunosuppresives. - Pulm toilet? COPD, severe ([facility]) Continue inhalers ?? Circulatory CHF (congestive heart failure) ([facility]) With diastolic dysfunction, new diagnosis. -Continue Lasix. -(11/23) Rpt TTE showed EF 65%, unable to measure PA pressure, normal diastolic function. ?? DVT (deep venous thrombosis) ([facility]) Continue xarelto ?? Musculoskeletal Osteopenia Continue home vitamin D and dietary calcium ?? Endocrine/Metabolic Pure hypercholesterolemia Continue statin ?? Type 2 diabetes mellitus ([facility]) On basaglar 30 units AM and novolog 10 units TID with meals and SSI at home. No longer taking metformin at home. Follows with endocrine outpatient, however he has missed multiple appointments. - BG >400 on admit (pt stated he did not take his AM insulin). - Required Insulin gtt on 11/23, transitioned to 40U Lantus qHS, 15U NPH w/ steroids, 15U Lispro withmeals, HD SSI while here. - Endocrine following, appreciate recs. - DC on basaglar 40U daily, Humalog 15U with breakfast and 18U with lunch and dinner with meals plus SSI, while on prednisone 10 daily. - Hgb A1C 13 on admit. ?? Hematologic 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) Induction with 7+3 and HiDAC consolidation x3??s/p decitabine maintenance on the CALGB 78644 protocol. -??Relapsed disease,??status post an allogeneic transplant with busulfan and Cytoxan on the AMD allogeneic study with his sister, 08/27 match; with day 0 on 11/09/2009.?? - Currently in remission. Follows with Dr. Del Valle - On tacro, cellcept - OI ppx: Cont acyclovir. Added vori and bactrim (pt stated he was no longer taking at home). ?? Immune Siboi-aqobbs-lndn disease (CMS/HCC) Continue cellcept 1 g BID and tacrolimus??0.5 every other day. Last PFT with FEV1 50% in 12/2017 -??Admitted on prednisone 60 bid (on pred taper) - cont eye drops - Taper pred --> 20 bid on 11/23 --> taper to 20 daily on 11/26,--> discharge on pred 10 daily - Start Jakafi on study 11/23, plan for 2 cycles - Reports recently changed to Trelegy INH. Change to spiriva, advair; albuterol PRN while here. Change back to home inhaler at d/c. - Added Azithro 250 3x/weekly ?? Other Tobacco abuse Nicotine patch Active Issues Requiring Follow-up: -Discharges on prednisone 20 daily and Jakafi for GVHD -Will need to f/u with Dr Elizondo (Endocrine) after discharge and again if prednisone tapered Test Results Pending at Discharge: Order Current Status Potassium Collected (11/27/191120) Vancomycin, trough Collected (01/10/20 1121) Filamentous fungus culture, blood Blood Preliminary result Operative Procedures Performed: Other Procedures: n/a Pertinent Test Results: n/a Discharge Details Physical Exam at Discharge: Discharge Condition: stable Pulse: 81 Resp: 20 BP: 122/70 Temp: 36.4 ??C (97.5 ??F) Weight: 79.8 kg (176 lb) Pertinent Exam Findings at Discharge: see physical exam from date of discharge Discharge Disposition: Code Status at Discharge: Full code Discharge Instructions: Your insulin doses were increased while you were admitted as your blood sugar was too high. Your new insulin regimen is listed below. Call your doctor if you unsure how much insulin to take. You should be checking your blood sugar 4 times a day (in the morning before breakfast, before lunch, beforedinner, and before your evening dose of Lantus/glargine). ?? Inject 15 units of Humalog (lispro) before BREAKFAST, inject 18 units of Humalog (lispro) beforeLUNCH and DINNER, PLUS your sliding scale insulin (instructions below) Blood Sugar Insulin lispro ?? 139 or less No insulin ?? 140 - 175 2 units ?? 176 - 200 3 units ?? 201 - 250 5 units ?? 251 or more 7 units ?? Inject 40 units of Lantus at nighttime before bed ?? Call Dr. Gibson (your business transformation analyst) on Saturday to check in ([phone]) Call right away if you have: * A fever of 101F or higher *Shaking chills *Do NOT take Tylenol, aspirin, or ibuprofen unless your doctor tells you to * A hard time breathing * Significant pain you did not have before, including strong headaches * Bleeding that does not stop after a few minutes * Blood in your urine, black or bloody stool, or nosebleeds * Nausea and vomiting and cannot keep fluids or medicine down * Feeling confused or very sleepy Call within 24 hours for: *Pain, redness or swelling around your IV catheter *Rash or darkening of your skin *Watery diarrhea, stomach cramps, or nausea that doesn't go away * If you are unable to get your medicines at the pharmacy After 4:30 PM during the week, on weekends and holidays, call and ask to have the BMT Fellow Ordinary Seaman paged for you. Saturday through Saturday, 8 AM to 4:30 PM, call or and ask for a member of your doctor???s team. Diet: Resume regular diet Activity: As tolerated Special Instructions: *Drink at least 64 ounces of decaffeinated liquid every day. *Take your temperature 2 times a day. *Bring bottles of all medicines you are taking with you to all appointments. *On the day you have blood drawn, if you are taking cyclosporine, tacrolimus (Prograf), or sirolimus, do not take your morning dose until AFTER your blood is drawn. Follow Up: Call inpatient nurse coordinator at if you do not have a follow up appointment date and time indicated on your instructions. Discharge Medications: Current Medications TAKE these medications acyclovir 400 mg tablet Commonly known as: ZOVIRAX TAKE 1 TABLET BY MOUTH EVERY 8 HOURS amoxicillin-clavulanate 875-125 mg per tablet Commonly known as: AUGMENTIN Take 1 tablet by mouth 2 (two) times a day for 7 days Start taking on: November 28, 2019 atorvastatin 40 mg tablet Commonly known as: LIPITOR Take 1 tablet (40 mg total) by mouth daily azithromycin 250 mg tablet Commonly known as: ZITHROMAX Take 1 tablet (250 mg total) by mouth 3 (three) times a week Basaglar KwikPen U-100 Insulin 100 unit/mL (3 mL) insulin pen Generic drug: insulin glargine Inject 40 Units under the skin nightly blood glucose diagnostic strip Check blood sugar tid blood-glucose meter misc 1 Device 3 (three) times a day dextromethorphan-guaiFENesin SF/AF 2-20 mg/mL liquid Commonly known as: TUSSIN-DM Take 5 mL by mouth 2 (two) times a day as needed for cough ergocalciferol 50,000 unit capsule Commonly known as: VITAMIN D Take 1 capsule (50,000 Units total) by mouth once a week furosemide 20 mg tablet Commonly known as: LASIX Take 1 tablet (20 mg total) by mouth daily As needed. gabapentin 300 mg capsule Commonly known as: NEURONTIN TAKE 1 PO 4 times daily HumaLOG KwikPen Insulin 100 unit/mL insulin pen Generic drug: insulin lispro Inject 20 Units under the skin 3 (three) times a day with meals HYDROcodone-acetaminophen 5-325 mg per tablet Commonly known as: NORCO Take 1 tablet by mouth every 6 (six) hours as needed INV-[facility] ruxolitinib 5 mg tablet Commonly known as: 2018--175/INCB [id number] Take 1 tablet (5 mg total) by mouth 2 (two) times a day Take at about the same time each day with an 8oz glass of water. Doses may be taken without regard to food. montelukast 10 mg tablet Commonly known as: SINGULAIR Take 1 tablet (10 mg total) by mouth nightly. mycophenolate mofetil 500 mg tablet Commonly known as: CELLCEPT TAKE 2 TABLETS BY MOUTH TWICE DAILY nicotine 21 mg Commonly known as: NICODERM CQ Place 1 patch on the skin daily ofloxacin 0.3 % ophthalmic solution Commonly known as: OCUFLOX Administer 1 drop into both eyes 2 (two) times a day predniSONE 20 mg tablet Commonly known as: DELTASONE Take 1 tablet (20 mg) by mouth daily sulfamethoxazole-trimethoprim 800-160 mg per tablet Commonly known as: BACTRIM DS Take 1 tablet (160 mg of trimethoprim total) by mouth 2 (two) times a day On Saturday and tacrolimus 0.5 mg capsule Commonly known as: PROGRAF Take 1 capsule (0.5 mg total) by mouth every other day. traMADol 50 mg tablet Commonly known as: ULTRAM TAKE 1 TABLET BY MOUTH EVERY 6 HOURS NEEDED FOR PAIN (MAX OF 3 TABLETS PER DAY) Trelegy Ellipta 100-62.5-25 mcg inhaler Generic drug: kxuetdbqxca-tbfdfsuca-flsxcqhb INHALE 1 PUFF BY INHALATION ROUTE ONCE DAILY AT THE SAME TIME EACH DAY. RINSE SPIT AFTER USE. DON T USE WITH OTHER INHALERS. STOP ADVAIR AND Ventolin HFA 90 mcg/actuation inhaler Generic drug: albuterol HFA INHALE 1 TO 2 PUFFS BY MOUTH EVERY 4 HOURS NEEDED FOR SHORTNESS OF BREATH voriCONAZOLE 200 mg tablet Commonly known as: VFEND Take 1 tablet (200 mg total) by mouth 2 (two) times a day Xarelto 20 mg tablet Generic drug: rivaroxaban TAKE 1 TABLET BY MOUTH ONCE DAILY WITH FOOD ASK your doctor about these medications pen needle, diabetic 31 gauge x 5/16 needle Use to inject 1-4 times daily as directed. Ask about: Should I take this medication? Outpatient Follow-Up: Future Appointments Date Time Provider Department Center 12/04/2019 9:00 AM LAB, [facility] ONC ONC LAB [facility] 12/04/2019 9:40 AM Narcisa Kilgore, FUR TRIMMER BMT [facility] 7 BMT Cosigned by Josué Del Valle MD PhD at 11/28/2019 1:[address] RAILWAY LINE INSTALLER ET RAILWAY LINE INSTALLER ET RAILWAY LINE INSTALLER Associated attestation - Josué Del Valle MD PhD - 11/28/2019 1:[address] RAILWAY LINE INSTALLER I have seen and examined the patient on 11/28/19. I agree with the findings and plan of care as documented in the resident/fellow's note. Josué Del Valle MD PhD documented in this encounter Discharge Instructions * Discharge Instructions* Mellisa Llamas MD - 11/28/2019 12:[address] RAILWAY LINE INSTALLER Your insulin doses were increased while you were admitted as your blood sugar was too high. Your new insulin regimen is listed below. Call your doctor if you unsure how much insulin to take. You should be checking your blood sugar 4 times a day (in the morning before breakfast, before lunch, beforedinner, and before your evening dose of Lantus/glargine). ?? Inject 15 units of Humalog (lispro) before BREAKFAST, inject 18 units of Humalog (lispro) beforeLUNCH and DINNER, PLUS your sliding scale insulin (instructions below) Blood Sugar Insulin lispro ?? 139 or less No insulin ?? 140 - 175 2 units ?? 176 - 200 3 units ?? 201 - 250 5 units ?? 251 or more 7 units ?? Inject 40 units of Lantus at nighttime before bed ?? Call Dr. Gibson (your business transformation analyst) on Saturday to check in ([phone]) Call right away if you have: * A fever of 101F or higher *Shaking chills *Do NOT take Tylenol, aspirin, or ibuprofen unless your doctor tells you to * A hard time breathing * Significant pain you did not have before, including strong headaches * Bleeding that does not stop after a few minutes * Blood in your urine, black or bloody stool, or nosebleeds * Nausea and vomiting and cannot keep fluids or medicine down * Feeling confused or very sleepy Call within 24 hours for: *Pain, redness or swelling around your IV catheter *Rash or darkening of your skin *Watery diarrhea, stomach cramps, or nausea that doesn't go away * If you are unable to get your medicines at the pharmacy After 4:30 PM during the week, on weekends and holidays, call [phone] and ask to have the BMT Fellow Ordinary Seaman paged for you. Saturday through Saturday, 8 AM to 4:30 PM, call or and ask for a member of your doctor???s team. Diet: Resume regular diet Activity: As tolerated Special Instructions: *Drink at least 64 ounces of decaffeinated liquid every day. *Take your temperature 2 times a day. *Bring bottles of all medicines you are taking with you to all appointments. *On the day you have blood drawn, if you are taking cyclosporine, tacrolimus (Prograf), or sirolimus, do not take your morning dose until AFTER your blood is drawn. Follow Up: Call inpatient nurse coordinator at if you do not have a follow up appointment date and time indicated on your instructions. ET RAILWAY LINE INSTALLER documented in this encounter Medications at Time of Discharge amoxicillin-clavulanate (AUGMENTIN) 875-125 mg per tabletIndications:Pneumo tanya, Aspiration Take 1 tablet by mouth 2 (two) times a day for 7 days 14 tablet 11/28/19 20 020 acyclovir (ZOVIRAX) 400 mg tabletIndications:AML (acute myeloid leukemia) in remission (HCC) TAKE 1 TABLET BY MOUTH EVERY 8 HOURS 270 tablet 1 03/10/20 19 020 atorvastatin (LIPITOR) 40 mg tabletIndications:AML (acute myeloid leukemia) in remission (HCC),Type 2 diabetes mellitus with hyperglycemia, with long-term current use of insulin ([facility]),Gcxqu-mxvaoj-vgye disease (HCC),H/O allogeneic bone marrow transplant ([facility]),Pure hypercholesterolemia Take 1 tablet (40 mg total) by mouth daily 30 tablet 6 02/12/20 19 020 azithromycin (ZITHROMAX) 250 mg tabletIndications:Prophy laxis, Medical Take 1 tablet (250 mg total) by mouth 3 (three) times a week 30 tablet 1 11/27/19 20 020 BASAGLAR KWIKPEN U-100 INSULIN 100 unit/mL (3 mL) insulin penIndications:Type 2 diabetes mellitus with hyperosmolarity without coma, with long-term current use of insulin ([facility]) Inject 40 Units under the skin nightly 13.5 mL 11/28/19 020 blood glucose diagnostic stripIndications:Type 2 diabetes mellitus with hyperosmolarity without coma, with long-term current use of insulin ([facility]) Check blood sugar tid 100 each 4 07/01/20 blood-glucose meter miscIndications:Type 2 diabetes mellitus with hyperosmolarity without coma, with long-term current use of insulin ([facility]) 1 Device 3 (three) times a day 1 each 05/29/20 19 024 dextromethorphan-guaiFEN esin (TUSSIN-DM) liquid 10-100 mg/5 mL Take 5 mL by mouth 2 (two) times a day as needed for cough 118 mL 08/25/20 19 020 ergocalciferol (VITAMIN D) 50,000 unit capsuleIndications:Vitam in D deficiency Take 1 capsule (50,000 Units total) by mouth once a week 4 capsule 11 06/02/20 020 furosemide (LASIX) 20 mg tabletIndications:Type 2 diabetes mellitus with hyperosmolarity without coma, with long-term current use of insulin ([facility]) Take 1 tablet (20 mg total) by mouth daily As needed. 30 tablet 08/07/20 19 020 gabapentin (NEURONTIN) 300 mg capsuleIndications:Type 2 diabetes mellitus with hyperosmolarity without coma, with long-term current use of insulin ([facility]) TAKE 1 PO 4 times daily 11/26/1907 01/28/2 020 HUMALOG KWIKPEN INSULIN 100 unit/mL insulin penIndications:type 2 diabetes mellitus Inject 15 Units under the skin daily with breakfast 4.5 mL 11/28/19 20 020 HUMALOG KWIKPEN INSULIN 100 unit/mL insulin pen Inject 18 Units under the skin 2 (two) times a day before lunch and dinner PLUS your sliding scale. 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 Doses may be taken without regard to food. 11/27/19 20 021 montelukast (SINGULAIR) 10 mg tabletIndications:AML (acute myeloid leukemia) in remission (HCC),Zcqbk-zfqcqy-nmmv disease (HCC) Take 1 tablet (10 mg total) by mouth nightly. 30 tablet 11 12/17/19 19 020 mycophenolate mofetil (CELLCEPT) 500 mg tabletIndications:AML (acute myeloid leukemia) in remission (HCC),Rthpi-owfsjs-chli disease (HCC) TAKE 2 TABLETS BY MOUTH TWICE DAILY 180 tablet 3 01/05/20 19 nicotine (NICODERM CQ) [address] 1 patch on the skin daily 30 patch 08/26/20 19 021 ofloxacin (OCUFLOX) 0.3 % ophthalmic solution Administer 1 drop into both eyes 2 (two) times a day 5 mL 1 08/11/20 19 020 predniSONE (DELTASONE) 10 mg tablet Take 1 tablet (10 mg) by mouth daily 30 tablet 11/28/19 20 020 sulfamethoxazole-trimeth oprim (BACTRIM DS) 800-160 mg per tabletIndications:Pneumo cystis/Toxoplasmosis Prophylaxis Take 1 tablet (160 mg of trimethoprim total) by mouth 2 (two) times a day On Saturday and 30 tablet 1 11/26/19 20 020 tacrolimus (PROGRAF) 0.5 mg capsule Take 1 capsule (0.5 mg total) by mouth every other day. 11/25/19 19 021 traMADol (ULTRAM) 50 mg tabletIndications:AML (acute myeloid leukemia) in remission (HCC),Jocch-nbszyp-fomu disease (HCC),H/O allogeneic bone marrow transplant (HCC) TAKE 1 TABLET BY MOUTH EVERY 6 HOURS NEEDED FOR PAIN (MAX OF 3 TABLETS PER DAY) 0 10/08/20 19 TRELEGY ELLIPTA 100-62.5-25 mcg inhalerIndications:AML (acute myeloid leukemia) in remission (HCC),Wciqg-jolihf-ktgi disease (HCC),H/O allogeneic bone marrow transplant (HCC) INHALE 1 PUFF BY INHALATION ROUTE ONCE DAILY AT THE SAME TIME EACH DAY. RINSE SPIT AFTER USE. DON T USE WITH OTHER INHALERS. STOP ADVAIR AND 0 10/02/20 19 VENTOLIN HFA 90 mcg/actuation inhalerIndications:AML (acute myeloid leukemia) in remission (HCC) INHALE 1 TO 2 PUFFS BY MOUTH EVERY 4 HOURS NEEDED FOR SHORTNESS OF BREATH 1 Inhaler 3 09/23/20 19 voriCONAZOLE (VFEND) 200 mg tabletIndications:Prophy laxis, Medical Take 1 tablet (200 mg total) by mouth 2 (two) times a day 60 tablet 11/28/19 20 020 XARELTO 20 mg tabletIndications:AML (acute myeloid leukemia) in remission (HCC) TAKE 1 TABLET BY MOUTH ONCE DAILY WITH FOOD 60 tablet 1 06/15/20 19 documented as of this encounter Ordered Prescriptions Prescription Sig Dispense Quantity Refills Last Filled Start Date End Date predniSONE (DELTASONE) 10 mg tablet Take 1 tablet (10 mg) by mouth daily 30 tablet 0 12/28/19 20 HUMALOG KWIKPEN INSULIN 100 unit/mL insulin pen Inject 18 Units under the skin 2 (two) times a day before lunch and dinner PLUS your sliding scale. 10.8 mL 0 01/15/20 20 HUMALOG KWIKPEN INSULIN 100 unit/mL insulin penIndications:type 2 diabetes mellitus Inject 15 Units under the skin daily with breakfast 4.5 mL 0 12/04/19 20 BASAGLAR KWIKPEN U-100 INSULIN 100 unit/mL (3 mL) insulin penIndications:Type 2 diabetes mellitus with hyperosmolarity without coma, with long-term current use of insulin (HCC) Inject 40 Units under the skin nightly 13.5 mL 0 12/04/19 20 voriCONAZOLE (VFEND) 200 mg tabletIndications:Pr ophylaxis, Medical Take 1 tablet (200 mg total) by mouth 2 (two) times a day 60 tablet 0 12/04/19 20 HUMALOG KWIKPEN INSULIN 100 unit/mL insulin penIndications:type 2 diabetes mellitus Inject 20 Units under the skin 3 (three) times a day with meals 21 mL 0 11/28/19 20 BASAGLAR KWIKPEN U-100 INSULIN 100 unit/mL (3 mL) insulin penIndications:Type 2 diabetes mellitus with hyperosmolarity without coma, with long-term current use of insulin (HCC) Inject 45 Units under the skin nightly 13.5 mL 0 11/28/19 20 HUMALOG KWIKPEN INSULIN 100 unit/mL insulin penIndications:type 2 diabetes mellitus Inject 20 Units under the skin 3 (three) times a day with meals 0 11/28/19 20 BASAGLAR KWIKPEN U-100 INSULIN 100 unit/mL (3 mL) insulin penIndications:Type 2 diabetes mellitus with hyperosmolarity without coma, with long-term current use of insulin (HCC) Inject 40 Units under the skin nightly 0 11/28/19 20 voriCONAZOLE (VFEND) 200 mg tabletIndications:Pr ophylaxis, Medical Take 1 tablet (200 mg total) by mouth 2 (two) times a day 60 tablet 3 0 11/28/19 20 [facility] ruxolitinib (2018-05-175/INCB [id number]) 5 mg tabletIndications:Gr gab-jjutoq-kxle disease (HCC) Take 1 tablet (5 mg total) by mouth 2 (two) times a day Take at about the same time each day with an 8oz glass of water. Doses may be taken without regard to food. 0 11/23/19 21 amoxicillin-clavulan ate (AUGMENTIN) 875-125 mg per tabletIndications:Pn eumonia, Aspiration Take 1 tablet by mouth 2 (two) times a day for 7 days 14 tablet 0 12/05/19 20 voriCONAZOLE (VFEND) 200 mg tabletIndications:Pr ophylaxis, Medical Take 1 tablet (200 mg total) by mouth 2 (two) times a day 60 tablet 3 0 11/27/19 20 predniSONE (DELTASONE) 20 mg tablet Take 1 tablet (20 mg) by mouth daily 30 tablet 0 11/28/19 20 azithromycin (ZITHROMAX) 250 mg tabletIndications:Pr ophylaxis, Medical Take 1 tablet (250 mg total) by mouth 3 (three) times a week 30 tablet 1 0 01/15/20 20 sulfamethoxazole-tri methoprim (BACTRIM DS) 800-160 mg per tabletIndications:Pn eumocystis/Toxoplasm osis Prophylaxis Take 1 tablet (160 mg of trimethoprim total) by mouth 2 (two) times a day On Saturday and 30 tablet 1 0 01/15/20 20 ruxolitinib (JAKAFI) 5 mg tabletIndications:Gr aft Versus Host Disease Take 1 tablet (5 mg total) by mouth 2 (two) times a day Take at about the same time each day. Take with or without food. 0 11/27/19 20 gabapentin (NEURONTIN) 300 mg capsuleIndications:T ype 2 diabetes mellitus with hyperosmolarity without coma, with long-term current use of insulin (HCC) TAKE 1 PO 4 times daily 0 01/15/20 20 ruxolitinib (JAKAFI) 5 mg tabletIndications:Gr aft Versus Host Disease Take 2 tablets (10 mg total) by mouth 2 (two) times a day Take at about the same time each day. Take with or without food. 120 tablet 0 11/26/19 documented in this encounter Discharge Disposition Disposition Code Departure Means Destination Discharge to home or self care [facility] documented in this encounter Progress Notes * Kiarra Spaulding MD - 11/28/2019 10:29 AM CST Endocrine Diabetes Inpatient Follow Up 11/28/2019 Bri Jones [id number] Kirt Lindsay, DO Admit Date: 11/20/2019 Length of Stay: 8 SUBJECTIVE: Bri Jones??is a 54 y.o.?male??with T2DM, AML s/p allogenic stem jori transplant, COPD, GVHD who presented with dyspnea and is on high doses of steroids.? Interval: Feeling well this AM. Good appetite. No nausea/vomiting. BG began to increase around time NPH was wearing off yesterday evening. Up to 413 at bedtime. Primary team planning for discharge home today. Blood sugar: Recent Labs Lab Units 11/28/19 0826 11/28/19 0329 11/27/19 2222 11/27/19 1706 11/27/19 1119 11/27/19 0717 11/27/19 0456 11/26/19 2052 11/26/19 1638 11/26/19 1146 GLUCOSE mg/dL -- 293* -- -- -- -- 254* -- -- -- POC GLUCOSE MONITOR mg/dL 185 -- 413* 307* 123 201* -- 254* 282* 271* Dietary Orders (From admission, onward) Start Ordered 11/23/19 0716 Adult Diet Restricted; Consistent Carbohydrate Diet effective now Question Answer Comment ([facility]) Diet type Restricted Diabetic: Consistent Carbohydrate 11/23/19 0715 OBJECTIVE: Vitals: 11/27/19 2341 11/28/19 0323 11/28/19 0807 11/28/19 1004 BP: 129/75 115/72 BP Location: Left arm Left arm Patient Position: Lying Sitting Pulse: 76 85 Resp: 20 18 Temp: 36.5 ??C (97.7 ??F) 36.4 ??C (97.5 ??F) TempSrc: Oral Oral SpO2: 95% 95% 98% 100% Weight: Height: I/O this shift: In: - Out: 600 [Urine:600] Physical Exam General Appearance: alert, cooperative, in no acute distress, appears stated age, well-developed, well-nourished HENT: normocephalic, atraumatic, moist mucus membranes Eyes: EOMI, conjunctiva clear, anicteric sclera. Lungs: clear to auscultation bilaterally, respirations non-labored Cardiovascular: regular rate and rhythm, no murmurs, rubs, or gallops. No LE edema Abdominal: soft, non-tender, non-distended, bowel sounds active Extremities: atraumatic, no cyanosis or edema Skin: turgor normal, no rashes Neurologic: alert, speech fluent, comprehension intact, moving all extremities Psychologic: cooperative, appropriate affect and mood LAB/IMAGING: Recent Results (from the past 24 hour(s)) Potassium Collection Time: 11/27/19 10:33 AM Result Value Ref Range Potassium, pl 5.9 (H) 3.3 - 4.9 mmol/L Vancomycin, trough Collection Time: 11/27/19 10:33 AM Result Value Ref Range Vancomycin, trough 11.1 10.0 - 20.9 mcg/mL POCT glucose Collection Time: 11/27/19 11:19 AM Result Value Ref Range Glucose, POC 123 70 - 199 mg/dL POCT glucose Collection Time: 11/27/19 5:06 PM Result Value Ref Range Glucose, POC 307 (H) 70 - 199 mg/dL POCT glucose Collection Time: 11/27/19 10:22 PM Result Value Ref Range Glucose, POC 413 (H) 70 - 199 mg/dL Magnesium Collection Time: 11/28/19 3:29 AM Result Value Ref Range Magnesium 2.0 1.4 - 2.5 mg/dL Phosphorus Collection Time: 11/28/19 3:29 AM Result Value Ref Range Phosphorus, pl 3.7 2.3 - 4.5 mg/dL Basic metabolic panel Collection Time: 11/28/19 3:29 AM Result Value Ref Range Sodium 134 (L) 135 - 145 mmol/L Potassium, pl See Comment 3.3 - 4.9 mmol/L Chloride 99 97 - 110 mmol/L CO2 30 22 - 32 mmol/L Anion gap 5 2 - 15 mmol/L BUN 39 (H) 8 - 25 mg/dL Creatinine 0.92 0.80 - 1.30 mg/dL Glucose 293 (H) 70 - 199 mg/dL Calcium 9.3 8.5 - 10.3 mg/dL CBC without differential Collection Time: 11/28/19 3:29 AM Result Value Ref Range WBC 29.8 (H) 3.8 - 9.9 K/cumm Hgb 12.1 (L) 13.0 - 17.5 g/dL Hct 38.0 (L) 38.9 - 50.3 % Plt 270 150 - 400 K/cumm MPV 10.7 9.1 - 12.3 fL RBC 3.66 (L) 4.30 - 5.80 M/cumm MCV 103.8 (H) 81.3 - 96.4 fL MCH 33.1 27.1 - 33.3 pg MCHC 31.8 (L) 32.3 - 35.7 g/dL RDW CV 14.8 11.1 - 14.9 % RDW SD 55.8 (H) 35.7 - 48.1 fL NRBC abs 1.79 (H) 0.00 - 0.01 K/cumm Manual Differential Collection Time: 11/28/19 3:29 AM Result Value Ref Range Differential Manual Cells Counted 116 Neutrophil abs 24.2 (H) 1.7 - 6.5 K/cumm Imm gran abs 0.0 0.0 - 0.1 K/cumm Lymphocyte abs 4.9 (H) 0.8 - 3.3 K/cumm Monocyte abs 0.8 0.2 - 0.8 K/cumm Neutrophil pct 81.0 % Lymphocyte pct 16.4 % Monocyte pct 2.6 % RBC morphology Present (A) Anisocytosis Slight (A) Poikilocytosis Slight (A) Macrocytes 3-7/HPF (A) Platelet estimate Adequate POCT glucose Collection Time: 11/28/19 8:26 AM Result Value Ref Range Glucose, POC 185 70 - 199 mg/dL Potassium, whole blood Collection Time: 11/28/19 8:27 AM Result Value Ref Range Potassium, bld 3.8 3.3 - 4.9 mmol/L Lab Results Component Value Date TSH 1.02 05/29/2019 T3FREE 3.6 02/04/2017 FREET4 1.16 02/04/2017 Lab Results Component Value Date CORTISOL 20.8 12/18/2017 No results found for: CPEPTIDE Lab Results Component Value Date CHOL 193 05/29/2019 TRIG 266 (H) 05/29/2019 HDL 74 05/29/2019 LDL 154 (H) 05/07/2016 Lab Results Component Value Date PTH 54 08/07/2019 Assessment/Plan CHF (congestive heart failure) ([facility]) Assessment & Plan Closely monitor blood sugar to avoid hypoglycemia Vitamin D deficiency Assessment & Plan Last vitamin-D level low at 16. Continue vitamin D2 39010 units weekly and vitamin D3 2000 units daily Pure hypercholesterolemia Assessment & Plan On atorvastatin 40 mg daily Type 2 diabetes mellitus ([facility]) Assessment & Plan Patient has uncontrolled type 2 diabetes with [...] units of insulin yesterday. Discharge Recommendations: - Continue Lantus 40U QHS - Humalog 15U with breakfast, 18U with lunch and dinner - Discontinue NPH to 15 units with prednisone on discharge - HDSSI with meals, bedtime - we have requested follow up with Dr. Elizondo (now Dr. Gibson) and diabetes education. - patient should call Dr. Gibson's office on Saturday to review blood sugars and any need for insulindose adjustments, Mymqy-ujyviq-sbgj disease ([facility]) Assessment & Plan Prednisone decreased to 10 mg daily Thank you for allowing us to participate in the care of this patient. Recommendations have been discussed with the primary team. We will continue to follow. Please call the Diabetes Consult with any questions. Kiarra Spaulding MD Endocrinology Fellow Cosigned by Ave Montejo MD at 11/29/2019 11:[address] RAILWAY LINE INSTALLER ET RAILWAY LINE INSTALLER ET RAILWAY LINE INSTALLER Associated attestation - Ave Montejo MD - 11/29/2019 11:[address] RAILWAY LINE INSTALLER I have seen and examined the patient on {11/28/2019. I agree with the findings and plan of care as detailed in Dr. Spaulding's note. Discussed with Dr. Spaulding. * Mellisa Llamas MD - 11/28/2019 9:28 AM CST BMT Progress Note BMT Day: s/p allo HSCT 2008 for AML Chief Complaint: Patient is a 54 y.o. male with chief complaint of shortness of breath Interval History: No acute events overnight. Feels well this morning. Planning to discharge today. Discussed new insulin regimen and all questions answered. Patient feels comfortable with insulin plan. Breathing improved. No dysuria or abdominal pain. He has oxygen at home and is at baseline requirement. Active Treatment Plans for Bri Jones Oncology Chemotherapy Treatment: [id number] - [facility] - Heme/BMT - INCB [id number] - EAP Ruxolitinib for GVHD Current day: Day 1, Cycle 2 (Planned for 12/25/2019) Following planned day: Day 1, Cycle 3 (Planned for 01/22/2020) Allergies: Allergies Allergen Reactions ??? Adhesive Redness Medications: acyclovir, 400 mg, oral, Q8H amoxicillin-clavulanate, 875 mg of amoxicillin, oral, BID atorvastatin, 40 mg, oral, Daily azithromycin, 250 mg, oral, Once per day on Sat cholecalciferol, 2,000 Units, oral, Daily ergocalciferol, 50,000 Units, oral, Weekly fluticasone propion-salmeterol, 1 puff, inhalation, BID furosemide, 20 mg, oral, Daily gabapentin, 300 mg, oral, QID guaiFENesin ER, 600 mg, oral, BID heparin flush (porcine), 5 mL, intra-catheter, Q12H ROSA MARIA insulin glargine, 40 Units, subcutaneous, Nightly insulin lispro, 1-4 Units, subcutaneous, Nightly insulin lispro, 1-7 Units, subcutaneous, TID with meals insulin lispro, 20 Units, subcutaneous, TID with meals insulin NPH, 15 Units, subcutaneous, Daily [facility] ruxolitinib, 5 mg, oral, BID montelukast, 10 mg, oral, Nightly mycophenolate mofetil, 1,000 mg, oral, BID nicotine, 1 patch, transdermal, Daily ofloxacin, 1 drop, each eye, BID predniSONE, 20 mg, oral, Daily rivaroxaban, 20 mg, oral, Daily with dinner sodium chloride 0.9 %, 30 mL, swish & spit, QID sodium chloride 0.9%, 0.5-20 mL, intra-catheter, Q8H ROSA MARIA sulfamethoxazole-trimethoprim, 160 mg of trimethoprim, oral, 2 times per day on Sat tacrolimus, 0.5 mg, oral, Every other day tiotropium, 1 capsule, inhalation, Daily voriCONAZOLE, 200 mg, oral, BID Objective Vitals: 24hr Min/Max: Temp Min: 36.3 ??C (97.3 ??F) Max: 36.8 ??C (98.2 ??F) Pulse Min: 76 Max: 86 BP Min: 115/72 Max: 136/80 Resp Min: 18 Max: 20 SpO2 Min: 93 % Max: 98 % Most Recent : Vitals: 11/27/19 2318 11/27/19 2341 11/28/19 0323 11/28/19 0807 BP: 117/75 129/75 115/72 BP Location: Left arm Left arm Left arm Patient Position: Lying Lying Sitting Pulse: 80 76 85 Resp: 18 20 18 Temp: 36.6 ??C (97.9 ??F) 36.5 ??C (97.7 ??F) 36.4 ??C (97.5 ??F) TempSrc: Oral Oral Oral SpO2: 94% 95% 95% 98% Weight: Height: Intake/Output Summary (Last 24 hours) at 11/28/2019 0929 Last data filed at 11/28/2019 0809 Gross per 24 hour Intake 3287 ml Output 4500 ml Net -1213 ml Physical Exam: General appearance: appears stated age Head: Normocephalic, without obvious abnormality Eyes: conjunctivae/corneas clear. PERRL Throat/Mouth: no mucositis or thrush and lips, mucosa, and tongue normal; teeth and gums normal Neck: no adenopathy and no JVD Lungs: +expiratory wheezing and coarse to auscultation bilaterally Heart: regular rate and rhythm, S1, S2 normal, no murmur, click, rub or gallop Abdomen: soft, non-tender; bowel sounds normal; no masses, no organomegaly Extremities: 2+ pitting BLE edema, erythematous and scaling of BLE Pulses: 2+ and symmetric Skin: +chronic gvhd skin changes. No rashes or lesions Neurologic: Alert and oriented x4, non-focal Lab/Radiology/Diagnostic Review: Laboratory review: I have personally reviewed the following labs: CBC: Recent Labs Lab Units 11/28/19328 WBC K/cumm 29.8* HEMOGLOBIN g/dL 12.1* HEMATOCRIT % 38.0* MCV fL 103.8* MCH pg 33.1 MCHC g/dL 31.8* RDW CV % 14.8 RDWSD fL 55.8* MPV fL 10.7 NEUTROS ABS K/cumm 24.2* CMP: Recent Labs Lab Units 11/28/19 0811/28/1932811/26/19422 SODIUM mmol/L -- 134* < > 140 POTASSIUM PLASMA mmol/L -- See Comment < > 5.0* CO2 mmol/L -- 30 < > 30 BUN SERUM mg/dL -- 39* < > 30* GLUCOSE mg/dL -- 293* < > 274* POC GLUCOSE MONITOR mg/dL 185 -- < > -- CREATININE mg/dL -- 0.92 < > 0.76* CALCIUM mg/dL -- 9.3 < > 9.1 CHLORIDE mmol/L -- 99 < > 104 ALBUMIN g/dL -- -- -- 3.7 AST Units/L -- -- -- 38 ALT Units/L -- -- -- 43 ALK PHOS Units/L -- -- -- 103 BILIRUBIN TOTAL mg/dL -- -- -- 0.3 TOTAL PROTEIN g/dL -- -- -- 7.0 ANIONGAP mmol/L -- 5 < > 6 < > = values in this interval not displayed. LDH: Recent Labs Lab Units 11/26/19 042 LACTATE DEHYDROGENASE (LDH) Units/L 676* Uric Acid: Recent Labs Lab Units 11/26/19 042 URIC ACID mg/dL 3.4 Tacrolimus level: Recent Labs Lab Units 11/26/19 0842 TACRO TROUGH ng/mL 1.6 Sirolimus level: Cyclosporine level: PT: Recent Labs Lab Units 11/23/19 0307 PROTIME (PT) sec 17.4* PTT: Recent Labs Lab Units 11/23/19 0307 APTT sec 29 Radiology: Transthoracic Echo Complete W Doppler/CF Final Result CT Chest W Contrast Final Result 1. Scattered tree-in-bud and nodular opacities throughout both lungs suggestive of an acute infectious process. Thickened and debris-filled bronchi which are focally worse in the left lower lobe may indicate superimposed aspiration pneumonitis. Recommend follow-up noncontrast chest CT after the onset of appropriate medical therapy to document resolution. 2. Moderate to severe centrilobular emphysema. Electronically signed by: Bri Collins D.O. X-ray chest 1 view (Portable) Final Result Comparison to 08/22/2019. Redemonstrated are bilateral emphysematous changes with mild bibasilar atelectasis. The lungs are otherwise clear without focal consolidation or pulmonary edema. No definite pleural effusion or pneumothorax. Heart size and mediastinal contour are unchanged. Dictated by: Elsi Sweet M.D. The radiology attending physician has personally reviewed this study, and had reviewed and/or edited this written report and agrees with it. Electronically signed by: Candice Lara M.D. Lab Results Component Value Date MICROBIOLOGY (.) 11/21/2019 Final Report: Greater than or equal to 100,000 colonies/ml of Streptococcus pneumoniae Moxifloxacin susceptibility results can be inferred from gatifloxacin susceptibility testing. Plus growth of clinically insignificant bacterial oscar. MICROBIOLOGY 11/20/2019 Final Report: Negative for Aspergillus Galactomannan Antigen Index: <0.500 MICROBIOLOGY Preliminary Report: No growth of fungus to date 11/20/2019 MICROBIOLOGY Final Report: No growth 11/20/2019 MICROBIOLOGY Final Report: No growth 11/20/2019 MICROBIOLOGY Final Report: No growth 08/22/2019 MICROBIOLOGY Final Report: No growth 08/22/2019 MICROBIOLOGY 11/22/2018 Final Report: Respiratory Pathogen nucleic acids NOT DETECTED (NEGATIVE) MICROBIOLOGY Final Report: No growth 11/22/2018 MICROBIOLOGY Final Report: No growth 11/22/2018 Assessment/Plan 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) Assessment & Plan Induction with 7+3 and HiDAC consolidation x3??s/p decitabine maintenance on the CALGB 25490 protocol. -??Relapsed disease,??status post an allogeneic transplant with busulfan and Cytoxan on the AMD allogeneic study with his sister, 08/27 match; with day 0 on 11/09/2009.?? - Currently in remission. Follows with Dr. Del Valle - On tacro, cellcept - OI ppx: Cont acyclovir. Added vori and bactrim (pt stated he was no longer taking at home). Shortness of breath Assessment & Plan Concern for poss GVHD and/or poss COPD [...] - Pulm toilet?? - Walking O2 assessment Type 2 diabetes mellitus ([facility]) Assessment & Plan On basaglar 30 units AM and novolog 10 units TID with meals and SSI at home. No longer taking metformin at home. Follows with endocrine outpatient, however he has missed multiple appointments. - BG >400 on admit (pt stated he did not take his AM insulin). - Required Insulin gtt on 11/23, transitioned to 40U Lantus qHS, 15U NPH w/ steroids, 15U Lispro withmeals, HD SSI. - Discharge regimen: 45U lantus qHs + 20U TID AC + HD SSI - Endocrine following, appreciate recs - Hgb A1C 13 on admit. Pneumonia Assessment & Plan POA. Possibly community-acquired and/or 2/[address] Strep pneumoniae pos sputum cx.See SOB problem. Tobacco abuse Assessment & Plan Nicotine patch Peripheral neuropathy Assessment & Plan Continue gabapentin CHF (congestive heart failure) ([facility]) Assessment & Plan With diastolic dysfunction, new diagnosis. -Continue Lasix. -(11/23) Rpt TTE showed EF 65%, unable to measure PA pressure, normal diastolic function. DVT (deep venous thrombosis) ([facility]) Assessment & Plan Continue xarelto COPD, severe ([facility]) Assessment & Plan Continue inhalers Pure hypercholesterolemia Assessment & Plan Continue statin Weaqb-ekgwdo-hzew disease ([facility]) Assessment & Plan Continue cellcept 1 g BID and tacrolimus??0.5 [...] at d/c. - Added Azithro 250 3x/weekly Osteopenia Assessment & Plan Continue home vitamin D and dietary calcium Mellisa Llamas MD Internal Medicine, PGY-2 Cosigned by Josué Del Valle MD PhD at 11/28/2019 1:[address] RAILWAY LINE INSTALLER ET RAILWAY LINE INSTALLER ET RAILWAY LINE INSTALLER Associated attestation - Josué Del Valle MD PhD - 11/28/2019 1:[address] RAILWAY LINE INSTALLER I have seen and examined the patient on 11/28/19. I agree with the findings and plan of care as documented in the resident/fellow's note. Josué Del Valle MD PhD * Leni Potter MD - 11/27/2019 1:35 PM CST Endocrine Diabetes Inpatient Follow Up 11/27/2019 Bri Jones [id number] Kirt Lindsay DO Admit Date: 11/20/2019 Length of Stay: 7 SUBJECTIVE: Bri Jones is a 54 y.o. male with T2DM, AML s/p allogenic stem jori transplant, COPD,GVHD who presented with dyspnea and is on high doses of steroids. Interval: Feeling well this AM. Said he has some crackers/peanut butter last night and received insulin. Goodappetite. No nausea/vomiting. Blood sugar: Recent Labs Lab Units 11/27/19 1119 11/27/19 0717 11/27/19 0456 11/26/19 2052 11/26/19 1638 11/26/19 1146 11/26/19 0711 11/26/19 0423 11/25/19 2333 11/25/19 2057 GLUCOSE mg/dL -- -- 254* -- -- -- -- 274* -- -- POC GLUCOSE MONITOR mg/dL 123 201* -- 254* 282* 271* 312* -- 202* 272* Review of Systems Review of systems per HPI and otherwise all other systems are negative OBJECTIVE: Vitals: 11/26/19 2350 11/27/19 0455 11/27/19 0804 11/27/19 1158 BP: 130/77 130/75 160/77 122/70 BP Location: Right arm Left arm Patient Position: Sitting Sitting Pulse: 75 71 84 81 Resp: 18 20 Temp: 36.4 ??C (97.5 ??F) 36.5 ??C (97.7 ??F) 36.6 ??C (97.9 ??F) 36.4 ??C (97.5 ??F) TempSrc: Oral Oral Oral Oral SpO2: 93% 99% 94% 93% Weight: Height: I/O this shift: In: 1000 [P.O.:1000] Out: 900 [Urine:900] Physical Exam General: Alert, no acute distress, sitting up in bed HENT: mucus membranes are moist, no oral lesions Eyes: Sclera anicteric, EOMI, no proptosis Lungs: normal effort, coarse Heart: regular rate, normal rhythm, no murmur Abdomen: soft, non-tender, mildly distended Extremities: 1+ edema Neuro: grossly intact, alert and oriented x 3 Skin: No rash LAB/IMAGING: Recent Results (from the past 24 hour(s)) POCT glucose Collection Time: 11/26/19 4:38 PM Result Value Ref Range Glucose, POC 282 (H) 70 - 199 mg/dL POCT glucose Collection Time: 11/26/19 8:52 PM Result Value Ref Range Glucose, POC 254 (H) 70 - 199 mg/dL Magnesium Collection Time: 11/27/19 4:56 AM Result Value Ref Range Magnesium 2.0 1.4 - 2.5 mg/dL Phosphorus Collection Time: 11/27/19 4:56 AM Result Value Ref Range Phosphorus, pl 3.0 2.3 - 4.5 mg/dL Basic metabolic panel Collection Time: 11/27/19 4:56 AM Result Value Ref Range Sodium 136 135 - 145 mmol/L Potassium, pl See Comment 3.3 - 4.9 mmol/L Chloride 103 97 - 110 mmol/L CO2 27 22 - 32 mmol/L Anion gap 6 2 - 15 mmol/L BUN 31 (H) 8 - 25 mg/dL Creatinine 0.85 0.80 - 1.30 mg/dL Glucose 254 (H) 70 - 199 mg/dL Calcium 8.8 8.5 - 10.3 mg/dL CBC without differential Collection Time: 11/27/19 4:56 AM Result Value Ref Range WBC 27.7 (H) 3.8 - 9.9 K/cumm Hgb 11.7 (L) 13.0 - 17.5 g/dL Hct 35.9 (L) 38.9 - 50.3 % Plt 266 150 - 400 K/cumm MPV 10.8 9.1 - 12.3 fL RBC 3.48 (L) 4.30 - 5.80 M/cumm MCV 103.2 (H) 81.3 - 96.4 fL MCH 33.6 (H) 27.1 - 33.3 pg MCHC 32.6 32.3 - 35.7 g/dL RDW CV 14.6 11.1 - 14.9 % RDW SD 54.6 (H) 35.7 - 48.1 fL NRBC abs 2.34 (H) 0.00 - 0.01 K/cumm Manual Differential Collection Time: 11/27/19 4:56 AM Result Value Ref Range Differential Manual Cells Counted 115 Neutrophil abs 21.4 (H) 1.7 - 6.5 K/cumm Imm gran abs 0.0 0.0 - 0.1 K/cumm Lymphocyte abs 5.1 (H) 0.8 - 3.3 K/cumm Monocyte abs 1.2 (H) 0.2 - 0.8 K/cumm Neutrophil pct 77.4 % Lymphocyte pct 18.3 % Monocyte pct 4.3 % RBC morphology Present (A) Anisocytosis Moderate (A) Poikilocytosis Slight (A) Macrocytes 8-15/HPF (A) Schistocytes 1-2/HPF (A) Platelet estimate Adequate POCT glucose Collection Time: 11/27/19 7:17 AM Result Value Ref Range Glucose, POC 201 (H) 70 - 199 mg/dL Potassium Collection Time: 11/27/19 10:33 AM Result Value Ref Range Potassium, pl 5.9 (H) 3.3 - 4.9 mmol/L Vancomycin, trough Collection Time: 11/27/19 10:33 AM Result Value Ref Range Vancomycin, trough 11.1 10.0 - 20.9 mcg/mL POCT glucose Collection Time: 11/27/19 11:19 AM Result Value Ref Range Glucose, POC 123 70 - 199 mg/dL Lab Results Component Value Date TSH 1.02 05/29/2019 T3FREE 3.6 02/04/2017 FREET4 1.16 02/04/2017 Lab Results Component Value Date CORTISOL 20.8 12/18/2017 Lab Results Component Value Date CHOL 193 05/29/2019 TRIG 266 (H) 05/29/2019 HDL 74 05/29/2019 LDL 154 (H) 05/07/2016 Lab Results Component Value Date PTH 54 08/07/2019 Assessment/Plan CHF (congestive heart failure) ([facility]) Assessment & Plan Closely monitor blood sugar to avoid hypoglycemia Vitamin D deficiency Assessment & Plan Last vitamin-D level low at 16. Continue vitamin D2 71474 units weekly and vitamin D3 2000 units daily Pure hypercholesterolemia Assessment & Plan On atorvastatin 40 mg daily Type 2 diabetes mellitus ([facility]) Assessment & Plan Patient has uncontrolled type 2 diabetes with [...] daily Humalog 20 units with meals (adding extra meal time coverage instead of discharging with NPH) Mid dose sliding scale *This regimen is for prednisone 20 mg daily. If the prednisone is changed, he will need to discuss the insulin doses with Dr. Elizondo. I requested follow up with Dr. Elizondo and diabetes education on 11/27/19. Akwiu-xcxfwb-gdpb disease (CMS/HCC) Assessment & Plan Prednisone decreased to 20 mg daily Leni Potter MD Endocrinology Fellow, PGY-5 Cosigned by Taye Steward MD at 11/27/2019 2:[address] RAILWAY LINE INSTALLER ET RAILWAY LINE INSTALLER ET RAILWAY LINE INSTALLER Associated attestation - Taye Steward MD - 11/27/2019 2:[address] RAILWAY LINE INSTALLER I have seen and examined the patient on 11/27/19. I agree with the findings and plan of care as documented in the resident's/fellow's note. * Stefany Cerna, YONY - 11/27/2019 1:33 PM CST Nutrition Assessment Reason for Assessment: Follow Up Encounter Date: 11/27/19 1:33 PM Patient is a 54 y.o. male with chief complaint of SOB. LOS is 7 days. 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 Recently diagnosed with CHF. Pt with pneumonia. Objective Past Medical History: Diagnosis Date ??? Personal history of leukemia History of acute myeloid leukemia - (Added by TW Conv) ??? Personal history of other diseases of the respiratory system History of pulmonary emphysema - (Added by TW Conv) ??? Personal history of other endocrine, nutritional and metabolic disease History of diabetes mellitus - (Added by TW Conv) ??? Personal history of other venous thrombosis and embolism H/O blood clots - (Added by TW Conv) ??? Visual disturbance Vision changes - (Added by TW Conv) Past Surgical History: Procedure Laterality Date ??? 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 FILTER N/A 07/16/2013 ??? 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 FILTER N/A 02/05/2013 ??? NJ TUBE PLACEMENT N/A 02/04/2013 ??? NJ TUBE PLACEMENT N/A 02/04/2013 ??? NJ TUBE PLACEMENT N/A 01/28/2013 ??? NJ TUBE PLACEMENT N/A 01/28/2013 Social History Tobacco Use ??? Smoking status: Current Every Day Smoker ??? Smokeless tobacco: Never Used ??? Tobacco comment: Pt not interested in smoking cessation program Substance Use Topics ??? Alcohol use: Not on file Family History Problem Relation Age of Onset ??? Heart disease Mother Family history of cardiac disorder - (Added by TW Conv) Anthropometrics: Wt Readings from Last 3 Encounters: 11/26/19 79.8 kg (176 lb) 11/20/19 77.4 kg (170 lb 9.6 oz) 08/24/19 79.4 kg (175 lb) Anthropometrics Weight: 79.8 kg (176 lb) Admission Weight : 77.4 kg Weight Change: 0.45 kg (1.00 lbs) IBW/kg (Calculated) : 75.3 kg Height: 177.8 cm (5' 10 ) Weight in (lb) to have BMI = 25: 173.9 BMI (Calculated): 25.3 Nutrition Needs Calculations: Calculated Energy Needs Using Equations Weight: 79.8 kg (176 lb) Height: 177.8 cm (5' 10 ) Temp: 36.4 ??C (97.5 ??F) Estimated Protein Needs Type of Weight Used for Estimated Protein : [place] Protein Needs Based on g/k.2 Total Protein Estimated Needs (gm): 90.36 Kcal/kg Type of Weight Used for Estimated Kcals: [place] Kcal/k Total Kcal/kg Estimated Needs : 2259 Vital Signs: BP: 122/70 Temp: 36.4 ??C (97.5 ??F) Pulse: 81 Resp: 20 SpO2: 93 % Medications: Scheduled Meds: acyclovir, 400 mg, oral, Q8H amoxicillin-clavulanate, 875 mg of amoxicillin, oral, BID atorvastatin, 40 mg, oral, Daily azithromycin, 250 mg, oral, Once per day on Sat cholecalciferol, 2,000 Units, oral, Daily ergocalciferol, 50,000 Units, oral, Weekly fluticasone propion-salmeterol, 1 puff, inhalation, BID furosemide, 20 mg, oral, Daily gabapentin, 300 mg, oral, QID guaiFENesin ER, 600 mg, oral, BID heparin flush (porcine), 5 mL, intra-catheter, Q12H COUNTS INCLUDE 234 BEDS AT THE [facility] insulin glargine, 40 Units, subcutaneous, Nightly insulin lispro, 1-4 Units, subcutaneous, Nightly insulin lispro, 1-7 Units, subcutaneous, TID with meals insulin lispro, 15 Units, subcutaneous, TID with meals insulin NPH, 15 Units, subcutaneous, Daily [facility] ruxolitinib, 5 mg, oral, BID montelukast, 10 mg, oral, Nightly mycophenolate mofetil, 1,000 mg, oral, BID nicotine, 1 patch, transdermal, Daily ofloxacin, 1 drop, each eye, BID predniSONE, 20 mg, oral, Daily rivaroxaban, 20 mg, oral, Daily with dinner ruxolitinib, 5 mg, oral, BID sodium chloride 0.9 %, 30 mL, swish & spit, QID sodium chloride 0.9%, 0.5-20 mL, intra-catheter, Q8H COUNTS INCLUDE 234 BEDS AT THE [facility] sulfamethoxazole-trimethoprim, 160 mg of trimethoprim, oral, 2 times per day on Sat tacrolimus, 0.5 mg, oral, Every other day tiotropium, 1 capsule, inhalation, Daily voriCONAZOLE, 200 mg, oral, BID Continuous Infusions: sodium chloride 0.9%, 30 mL/hr, Last Rate: 30 mL/hr (11/24/19 1723) sodium chloride 0.9%, 0-250 mL PRN Meds: ??? acetaminophen ??? acetaminophen ??? albuterol ??? albuterol ? ? aluminum & magnesium havwxrlto-uhzsoszfkyp-mkhyyaehqmlyqut-lidocaine (MAGIC MOUTHWASH) suspension 1-1-1 ??? bacitracin-polymyxin B ??? camphor-menthol ??? dextrose OR dextrose ??? dextrose OR dextrose ??? diphenhydrAMINE ??? glucagon ??? heparin flush (porcine) ??? insulin lispro ??? loperamide ??? magnesium sulfate ??? magnesium sulfate ??? oxyCODONE ??? lubricant ??? potassium chloride ??? potassium chloride ER ??? pramoxine-zinc oxide ??? sodium chloride ??? sodium chloride 0.9% ??? sodium chloride 0.9% ??? sodium chloride 0.9% ??? white petrolatum-mineral oil Lab Review: Sodium Date Value Ref Range Status 11/27/2019 136 135 - 145 mmol/L Final Potassium, pl Date Value Ref Range Status 11/27/2019 5.9 (H) 3.3 - 4.9 mmol/L Final Comment: Hemolyzed; Potassium value may be falsely elevated by as much as 1.1-1.6 mmol/L. Suggest redraw andreanalysis. BUN Date Value Ref Range Status 11/27/2019 31 (H) 8 - 25 mg/dL Final Creatinine Date Value Ref Range Status 11/27/2019 0.85 0.80 - 1.30 mg/dL Final Phosphorus, pl Date Value Ref Range Status 11/27/2019 3.0 2.3 - 4.5 mg/dL Final Comment: Hemolyzed result may be falsely elevated Albumin Date Value Ref Range Status 11/26/2019 3.7 3.5 - 5.0 g/dL Final Magnesium Date Value Ref Range Status 11/27/2019 2.0 1.4 - 2.5 mg/dL Final Calcium Date Value Ref Range Status 11/27/2019 8.8 8.5 - 10.3 mg/dL Final ALT Date Value Ref Range Status 11/26/2019 43 7 - 55 Units/L Final AST Date Value Ref Range Status 11/26/2019 38 10 - 50 Units/L Final Comment: Hemolyzed; result may be falsely elevated Alk phos Date Value Ref Range Status 11/26/2019 103 40 - 130 Units/L Final Lab Results Component Value Date HGBA1C 13.5 (H) 11/20/2019 HDL 74 05/29/2019 LDLCALC 66 05/29/2019 CHOL 193 05/29/2019 TRIG 266 (H) 05/29/2019 Nursing Assessment: Intake/Output Summary (Last 24 hours) at 11/27/2019 1333 Last data filed at 11/27/2019 1200 Gross per 24 hour Intake 3800 ml Output 4250 ml Net -450 ml Gastrointestinal Gastrointestinal (WDL): Within Defined Limits Abdomen Inspection: Soft, Rounded, Distended Bowel Sounds (All Quadrants): Active Palpation: Soft, Nontender Last BM Date: 11/26/19 Passing Flatus: Yes GI Symptoms: None Last BM Date: 11/26/19 Rolf Scale Score: 22 Skin Integrity: Bruising Oral Mucosa Grade: Normal (0) Dietary Orders (From admission, onward) Start Ordered 11/23/19 0716 Adult Diet Restricted; Consistent Carbohydrate Diet effective now Question Answer Comment ([facility]) Diet type Restricted Diabetic: Consistent Carbohydrate 11/23/19 0715 Impression: Pt reports that his appetite is great and he is eating well. Pt denied nausea, vomiting, diarrhea, constipation or trouble chewing/swallowing. POC glucose: 254, 201, 123. Pt reports familiarity with carbohydrate counting. States that he does not add salt to foods and tries to be mindful of sodium intake. Wt Readings from Last 15 Encounters: 11/26/19 79.8 kg (176 lb) 11/20/19 77.4 kg (170 lb 9.6 oz) 08/24/19 79.4 kg (175 lb) 08/07/19 73 kg (161 lb) 05/29/19 67.9 kg (149 lb 9.6 oz) 11/24/18 71.7 kg (158 lb) 10/27/18 70 kg (154 lb 6.4 oz) 08/01/18 62.3 kg (137 lb 4.8 oz) 07/28/18 62.6 kg (138 lb) 06/06/18 63.7 kg (140 lb 6.4 oz) 03/14/18 60.4 kg (133 lb 3.2 oz) 02/24/18 60 kg (132 lb 4.1 oz) 12/27/17 58.1 kg (128 lb) 12/18/17 54.9 kg (121 lb 0.2 oz) 05/31/17 63 kg (139 lb) NUTRITION DIAGNOSIS Nutrition Diagnosis 1: Altered nutrition-related laboratory values Related to: Physiologic issue Evidenced by: Lab abnormality(BG >300, Hgb A1c=13.5%) INTERVENTION Encouraged PO intakes to tolerance. Pt reports understanding of diabetic diet and declined the needfor further education. Pt stated no nutrition needs at this time. RD to follow and provide further nutrition interventions as appropriate. GOALS / MONITORING: Goals: Adequate nutrition to meet estimated needs by next assessment Interventions: Encouragement Monitoring and Evaluation: Appetite, PO intake, Weight changes Stefany Cerna RDN, LD ET RAILWAY LINE INSTALLER * Iza Gordon NP - 11/27/2019 7:55 AM CST BMT Progress Note BMT Day: s/p allo HSCT 2008 for AML Chief Complaint: Patient is a 54 y.o. male with chief complaint of shortness of breath Interval History: No acute events overnight. Shortness of breath and cough improved this morning. Continues on Jakafi, prednisone and IV antibiotics. Transition to oral antibiotic today, plan for discharge tomorrow. Active Treatment Plans for [facility] Chemotherapy Treatment: [id number] - [facility] - Heme/BMT - INCB [id number] - EAP Ruxolitinib for GVHD Current day: Day 1, Cycle 1 (Planned for 11/27/2019) Following planned day: Day 1, Cycle 2 (Planned for 12/25/2019) Allergies: Allergies Allergen Reactions ??? Adhesive Redness Medications: acyclovir, 400 mg, oral, Q8H amoxicillin-clavulanate, 875 mg of amoxicillin, oral, BID atorvastatin, 40 mg, oral, Daily azithromycin, 250 mg, oral, Once per day on Sat cholecalciferol, 2,000 Units, oral, Daily ergocalciferol, 50,000 Units, oral, Weekly fluticasone propion-salmeterol, 1 puff, inhalation, BID furosemide, 20 mg, oral, Daily gabapentin, 300 mg, oral, QID guaiFENesin ER, 600 mg, oral, BID heparin flush (porcine), 5 mL, intra-catheter, Q12H [facility] insulin glargine, 40 Units, subcutaneous, Nightly insulin lispro, 1-4 Units, subcutaneous, Nightly insulin lispro, 1-7 Units, subcutaneous, TID with meals insulin lispro, 15 Units, subcutaneous, TID with meals insulin NPH, 15 Units, subcutaneous, Daily montelukast, 10 mg, oral, Nightly mycophenolate mofetil, 1,000 mg, oral, BID nicotine, 1 patch, transdermal, Daily ofloxacin, 1 drop, each eye, BID predniSONE, 20 mg, oral, Daily rivaroxaban, 20 mg, oral, Daily with dinner ruxolitinib, 5 mg, oral, BID sodium chloride 0.9 %, 30 mL, swish & spit, QID sodium chloride 0.9%, 0.5-20 mL, intra-catheter, Q8H ROSA MARIA sulfamethoxazole-trimethoprim, 160 mg of trimethoprim, oral, 2 times per day on Sat Angy tacrolimus, 0.5 mg, oral, Every other day tiotropium, 1 capsule, inhalation, Daily voriCONAZOLE, 200 mg, oral, BID Objective Vitals: 24hr Min/Max: Temp Min: 36.3 ??C (97.3 ??F) Max: 36.6 ??C (97.9 ??F) Pulse Min: 71 Max: 84 BP Min: 122/70 Max: 160/77 Resp Min: 16 Max: 20 SpO2 Min: 90 % Max: 99 % Most Recent : Vitals: 11/26/19 2350 11/27/19 0455 11/27/19 0804 11/27/19 1158 BP: 130/77 130/75 160/77 122/70 BP Location: Right arm Left arm Patient Position: Sitting Sitting Pulse: 75 71 84 81 Resp: 18 20 20 20 Temp: 36.4 ??C (97.5 ??F) 36.5 ??C (97.7 ??F) 36.6 ??C (97.9 ??F) 36.4 ??C (97.5 ??F) TempSrc: Oral Oral Oral Oral SpO2: 93% 99% 94% 93% Weight: Height: Intake/Output Summary (Last 24 hours) at 11/27/2019 1223 Last data filed at 11/27/2019 1200 Gross per 24 hour Intake 3800 ml Output 4250 ml Net -450 ml Physical Exam: General appearance: appears stated age Head: Normocephalic, without obvious abnormality Eyes: conjunctivae/corneas clear. PERRL Throat/Mouth: no mucositis or thrush and lips, mucosa, and tongue normal; teeth and gums normal Neck: no adenopathy and no JVD Lungs: +expiratory wheezing and coarse to auscultation bilaterally Heart: regular rate and rhythm, S1, S2 normal, no murmur, click, rub or gallop Abdomen: soft, non-tender; bowel sounds normal; no masses, no organomegaly Extremities: 2+ pitting BLE edema, well perfused Pulses: 2+ and symmetric Skin: +chronic gvhd skin changes. No rashes or lesions Neurologic: Alert and oriented x4, non-focal Lab/Radiology/Diagnostic Review: Laboratory review: I have personally reviewed the following labs: CBC: Recent Labs Lab Units 11/27/19 0456 WBC K/cumm 27.7* HEMOGLOBIN g/dL 11.7* HEMATOCRIT % 35.9* MCV fL 103.2* MCH pg 33.6* MCHC g/dL 32.6 RDW CV % 14.6 RDWSD fL 54.6* MPV fL 10.8 NEUTROS ABS K/cumm 21.4* CMP: Recent Labs Lab Units 11/27/19 1119 11/27/19 0456 11/26/19 0423 SODIUM mmol/L -- -- 136 -- 140 POTASSIUM PLASMA mmol/L -- -- See Comment -- 5.0* CO2 mmol/L -- -- 27 -- 30 BUN SERUM mg/dL -- -- 31* -- 30* GLUCOSE mg/dL -- -- 254* -- 274* POC GLUCOSE MONITOR mg/dL 123 < > -- < > -- CREATININE mg/dL -- -- 0.85 -- 0.76* CALCIUM mg/dL -- -- 8.8 -- 9.1 CHLORIDE mmol/L -- -- 103 -- 104 ALBUMIN g/dL -- -- -- -- 3.7 AST Units/L -- -- -- -- 38 ALT Units/L -- -- -- -- 43 ALK PHOS Units/L -- -- -- -- 103 BILIRUBIN TOTAL mg/dL -- -- -- -- 0.3 TOTAL PROTEIN g/dL -- -- -- -- 7.0 ANIONGAP mmol/L -- -- 6 -- 6 < > = values in this interval not displayed. LDH: Recent Labs Lab Units 11/26/19 0423 LACTATE DEHYDROGENASE (LDH) Units/L 676* Uric Acid: Recent Labs Lab Units 11/26/19 0423 URIC ACID mg/dL 3.4 Tacrolimus level: Recent Labs Lab Units 11/26/19 0842 TACRO TROUGH ng/mL 1.6 Sirolimus level: Cyclosporine level: PT: Recent Labs Lab Units 11/23/19 0307 PROTIME (PT) sec 17.4* PTT: Recent Labs Lab Units 11/23/19 0307 APTT sec 29 Radiology: Transthoracic Echo Complete W Doppler/CF Final Result CT Chest W Contrast Final Result 1. Scattered tree-in-bud and nodular opacities throughout both lungs suggestive of an acute infectious process. Thickened and debris-filled bronchi which are focally worse in the left lower lobe may indicate superimposed aspiration pneumonitis. Recommend follow-up noncontrast chest CT after the onset of appropriate medical therapy to document resolution. 2. Moderate to severe centrilobular emphysema. Electronically signed by: Bri Collins D.O. X-ray chest 1 view (Portable) Final Result Comparison to 08/22/2019. Redemonstrated are bilateral emphysematous changes with mild bibasilar atelectasis. The lungs are otherwise clear without focal consolidation or pulmonary edema. No definite pleural effusion or pneumothorax. Heart size and mediastinal contour are unchanged. Dictated by: Elsi Sweet M.D. The radiology attending physician has personally reviewed this study, and had reviewed and/or edited this written report and agrees with it. Electronically signed by: Candice Lara M.D. Lab Results Component Value Date MICROBIOLOGY (.) 11/21/2019 Final Report: Greater than or equal to 100,000 colonies/ml of Streptococcus pneumoniae Moxifloxacin susceptibility results can be inferred from gatifloxacin susceptibility testing. Plus growth of clinically insignificant bacterial oscar. MICROBIOLOGY 11/20/2019 Final Report: Negative for Aspergillus Galactomannan Antigen Index: <0.500 MICROBIOLOGY Preliminary Report: No growth of fungus to date 11/20/2019 MICROBIOLOGY Final Report: No growth 11/20/2019 MICROBIOLOGY Final Report: No growth 11/20/2019 MICROBIOLOGY Final Report: No growth 08/22/2019 MICROBIOLOGY Final Report: No growth 08/22/2019 MICROBIOLOGY 11/22/2018 Final Report: Respiratory Pathogen nucleic acids NOT DETECTED (NEGATIVE) MICROBIOLOGY Final Report: No growth 11/22/2018 MICROBIOLOGY Final Report: No growth 11/22/2018 Assessment/Plan Nervous Peripheral neuropathy Continue gabapentin Respiratory Pneumonia POA. Possibly community-acquired and/or 2/[address] Strep pneumoniae pos sputum cx.See SOB problem. Shortness of breath Concern for poss GVHD and/or poss COPD [...] - Pulm toilet?? - Walking O2 assessment COPD, severe ([facility]) Continue inhalers Circulatory CHF (congestive heart failure) ([facility]) With diastolic dysfunction, new diagnosis. -Continue Lasix. -(11/23) Rpt TTE showed EF 65%, unable to measure PA pressure, normal diastolic function. DVT (deep venous thrombosis) ([facility]) Continue xarelto Musculoskeletal Osteopenia Continue home vitamin D and dietary calcium Endocrine/Metabolic Pure hypercholesterolemia Continue statin Type 2 diabetes mellitus ([facility]) On basaglar 30 units AM and novolog 10 units TID with meals and SSI at home. No longer taking metformin at home. Follows with endocrine outpatient, however he has missed multiple appointments. - BG >400 on admit (pt stated he did not take his AM insulin). - Required Insulin gtt on 11/23, transitioned to 40U Lantus qHS, 15U NPH w/ steroids, 15U Lispro withmeals, HD SSI. - Endocrine following, appreciate recs - Hgb A1C 13 on admit. Hematologic 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) Induction with 7+3 and HiDAC consolidation x3??s/p decitabine maintenance on the CALGB 82995 protocol. -??Relapsed disease,??status post an allogeneic transplant with busulfan and Cytoxan on the AMD allogeneic study with his sister, 08/27 match; with day 0 on 11/09/2009.?? - Currently in remission. Follows with Dr. Del Valle - On tacro, cellcept - OI ppx: Cont acyclovir. Added vori and bactrim (pt stated he was no longer taking at home). Immune Ubdsb-kswvcd-kwem disease (CMS/HCC) Continue cellcept 1 g BID and tacrolimus??0.5 [...] at d/c. - Added Azithro 250 3x/weekly Other Tobacco abuse Nicotine patch Iza Gordon NP [phone] Cosigned by Josué Del Valle MD PhD at 11/27/2019 1:[address] RAILWAY LINE INSTALLER ET RAILWAY LINE INSTALLER ET RAILWAY LINE INSTALLER Associated attestation - Josué Del Valle MD PhD - 11/27/2019 1:[address] RAILWAY LINE INSTALLER I have seen and examined the patient on 11/27/19 in conjunction with the non- physician provider. History: AML Physical Exam: GEN: no acute distress HEENT: no mucositis, anicteric sclera Pulm: clear to ausculation bilaterally CV: rate and rhythm regular ABD: soft, nondistended, nontender, bowel sounds active Skin: no rashes, lesions Ext: No edema Neuro: alert, oriented x 4 Assessment/Plan: Pneumonia resolving, COPD, GvHD chrinic, Jalen D/C in AM Josué Del Valle MD PhD * Leni Potter MD - 11/26/2019 5:32 PM CST Endocrine Diabetes Inpatient Follow Up 11/26/2019 Bri Jones [id number] Kirt Lindsay DO Admit Date: 11/20/2019 Length of Stay: 6 SUBJECTIVE: Bri Jones is a 54 y.o. male with T2DM, AML s/p allogenic stem jori transplant, COPD,GVHD who presented with dyspnea and is on high doses of steroids. Interval: Feeling well. Denies eating any snacks after dinner. Did have 1 diet soda. Knows he can snack with snack time Humalog. No nausea/vomiting. Blood sugar: Recent Labs Lab Units 11/26/19 1638 11/26/19 1146 11/26/19 0711 11/26/19 0423 11/25/19 2333 11/25/19 2057 11/25/19 1705 11/25/19 1150 11/25/19 0807 11/25/19 0515 GLUCOSE mg/dL -- -- -- 274* -- -- -- -- -- -- POC GLUCOSE MONITOR mg/dL 282* 271* 312* -- 202* 272* 305* 121 213* 425* Review of Systems Review of systems per HPI and otherwise all other systems are negative OBJECTIVE: Vitals: 11/26/19 0425 11/26/19 0828 11/26/19 1218 11/26/19 1634 BP: 136/75 135/77 128/81 128/67 BP Location: Left arm Left arm Patient Position: Sitting Sitting Sitting Pulse: 72 80 79 76 Resp: 16 16 16 16 Temp: 36.4 ??C (97.5 ??F) 36.5 ??C (97.7 ??F) 36.5 ??C (97.7 ??F) 36.5 ??C (97.7 ??F) TempSrc: Oral Oral Oral Oral SpO2: 95% 96% 95% 96% Weight: Height: I/O this shift: In: 1750 [P.O.:1100; IV Piggyback:650] Out: 2775 [Urine:2775] Physical Exam General: Alert, no acute distress, sitting up in bed HENT: mucus membranes are moist, no oral lesions Eyes: Sclera anicteric, EOMI, no proptosis Lungs: normal effort, coarse Heart: regular rate, normal rhythm, no murmur Abdomen: soft, non-tender, mildly distended Extremities: 2+ edema Neuro: grossly intact, alert and oriented x 3 Skin: No rash LAB/IMAGING: Recent Results (from the past 24 hour(s)) POCT glucose Collection Time: 11/25/19 8:57 PM Result Value Ref Range Glucose, POC 272 (H) 70 - 199 mg/dL POCT glucose Collection Time: 11/25/19 11:33 PM Result Value Ref Range Glucose, POC 202 (H) 70 - 199 mg/dL Type and screen Collection Time: 11/26/19 4:23 AM Result Value Ref Range ABO Rh A Positive Ursula, indirect Negative Comprehensive metabolic panel Collection Time: 11/26/19 4:23 AM Result Value Ref Range Sodium 140 135 - 145 mmol/L Potassium, pl 5.0 (H) 3.3 - 4.9 mmol/L Chloride 104 97 - 110 mmol/L CO2 30 22 - 32 mmol/L Anion gap 6 2 - 15 mmol/L BUN 30 (H) 8 - 25 mg/dL Creatinine 0.76 (L) 0.80 - 1.30 mg/dL Glucose 274 (H) 70 - 199 mg/dL Calcium 9.1 8.5 - 10.3 mg/dL Bilirubin, total 0.3 0.1 - 1.2 mg/dL Protein, pl 7.0 6.5 - 8.5 g/dL Albumin 3.7 3.5 - 5.0 g/dL Alk phos 103 40 - 130 Units/L ALT 43 7 - 55 Units/L AST 38 10 - 50 Units/L Uric acid Collection Time: 11/26/19 4:23 AM Result Value Ref Range Uric acid 3.4 3.0 - 8.0 mg/dL Lactate dehydrogenase (LD) Collection Time: 11/26/19 4:23 AM Result Value Ref Range Lactate dehydrogenase (LDH) 676 (H) 100 - 250 Units/L CBC without differential Collection Time: 11/26/19 4:23 AM Result Value Ref Range WBC 22.1 (H) 3.8 - 9.9 K/cumm Hgb 13.1 13.0 - 17.5 g/dL Hct 40.8 38.9 - 50.3 % Plt 278 150 - 400 K/cumm MPV 11.8 9.1 - 12.3 fL RBC 3.88 (L) 4.30 - 5.80 M/cumm MCV 105.2 (H) 81.3 - 96.4 fL MCH 33.8 (H) 27.1 - 33.3 pg MCHC 32.1 (L) 32.3 - 35.7 g/dL RDW CV 14.9 11.1 - 14.9 % RDW SD 56.8 (H) 35.7 - 48.1 fL NRBC abs 2.94 (H) 0.00 - 0.01 K/cumm Manual Differential Collection Time: 11/26/19 4:23 AM Result Value Ref Range Differential Manual Cells Counted 115 Neutrophil abs 17.1 (H) 1.7 - 6.5 K/cumm Imm gran abs 1.0 (H) 0.0 - 0.1 K/cumm Lymphocyte abs 2.7 0.8 - 3.3 K/cumm Monocyte abs 1.4 (H) 0.2 - 0.8 K/cumm Neutrophil pct 77.4 % Lymphocyte pct 12.2 % Monocyte pct 6.1 % Neutrophilic metamyelocytes 2.6 % Myelocytes 1.7 % RBC morphology Present (A) Polychromasia 3-7/HPF (A) Anisocytosis Slight (A) Poikilocytosis Moderate (A) Macrocytes 3-7/HPF (A) Platelet estimate Adequate Magnesium Collection Time: 11/26/19 4:23 AM Result Value Ref Range Magnesium 1.8 1.4 - 2.5 mg/dL Phosphorus Collection Time: 11/26/19 4:23 AM Result Value Ref Range Phosphorus, pl 3.5 2.3 - 4.5 mg/dL POCT glucose Collection Time: 11/26/19 7:11 AM Result Value Ref Range Glucose, POC 312 (H) 70 - 199 mg/dL Tacrolimus level trough Collection Time: 11/26/19 8:42 AM Result Value Ref Range Tacrolimus, trough 1.6 ng/mL POCT glucose Collection Time: 11/26/19 11:46 AM Result Value Ref Range Glucose, POC 271 (H) 70 - 199 mg/dL POCT glucose Collection Time: 11/26/19 4:38 PM Result Value Ref Range Glucose, POC 282 (H) 70 - 199 mg/dL Lab Results Component Value Date TSH 1.02 05/29/2019 T3FREE 3.6 02/04/2017 FREET4 1.16 02/04/2017 Lab Results Component Value Date CORTISOL 20.8 12/18/2017 Lab Results Component Value Date CHOL 193 05/29/2019 TRIG 266 (H) 05/29/2019 HDL 74 05/29/2019 LDL 154 (H) 05/07/2016 Lab Results Component Value Date PTH 54 08/07/2019 Assessment/Plan CHF (congestive heart failure) ([facility]) Assessment & Plan Closely monitor blood sugar to avoid hypoglycemia Vitamin D deficiency Assessment & Plan Last vitamin-D level low at 16. Continue vitamin D2 39788 units weekly and vitamin D3 2000 units daily Pure hypercholesterolemia Assessment & Plan On atorvastatin 40 mg daily Type 2 diabetes mellitus ([facility]) Assessment & Plan Patient has uncontrolled type 2 diabetes with [...] basal/bolus, doses pending. Follows with endocrinology here. Mmahr-hxvjbl-kbpv disease ([facility]) Assessment & Plan Plan to taper prednisone to 20 mg daily Leni Potter MD Endocrinology Fellow, PGY-5 Cosigned by Taye Steward MD at 11/27/2019 9:[address] RAILWAY LINE INSTALLER ET RAILWAY LINE INSTALLER ET RAILWAY LINE INSTALLER Associated attestation - Taye Steward MD - 11/27/2019 9:[address] RAILWAY LINE INSTALLER I have seen and examined the patient on 11/26/2019. I agree with the findings and plan of care as documented in the resident's/fellow's note. * Heath Doran RRT - 11/26/2019 3:27 PM CST 11/26/19 1500 Resting Information Resting HR. 78 bpm Resting SPO2 92 % Oxygen Setting 0 Delivery Device 0 Ambulation Trials to Assess Desaturation to 88% Activity 1: Ambulated (feet) 400 feet Oxygen Setting #1 3 SPO2 (%) #1 92 % Post Ambulation Assessment HR Post Assessment 89 bpm RR Post Assessment 24 breaths/m Post Assessment Recommendation Resting on RA SAT=92% Ambulating on 3 LNC SAT=92% Pt resting on RA SAT=92% Pt ambulating on RA SAT=85% Pt ambulating on 2 LNC SAT=88% Pt ambulating on 3 lnc SAT=92% Pt ambulated for 400 ft with 1 stop, pt SOB. ET RAILWAY LINE INSTALLER * Iza Gordon NP - 11/26/2019 8:43 AM CST BMT Progress Note BMT Day: Chief Complaint: Patient is a 54 y.o. 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 Interval History: No acute events overnight. VSS, afebrile. Remains on 3-4L O2. Continues on IV antibiotics. AwaitingJakafi approval. Titrate steroids today. Active Treatment & Therapy Plans for Bri Jones Robert does not have any active plans of the following types: Oncology Chemotherapy Treatment, Oncology Treatment (2), Oncology Treatment (3), Oncology Supportive Care, Specialty Infusion Treatment, Blood Products, BMT, Hematology Allergies: Allergies Allergen Reactions ??? Adhesive Redness Medications: acyclovir, 400 mg, oral, Q8H atorvastatin, 40 mg, oral, Daily azithromycin, 250 mg, oral, Once per day on Sat cefepime, 2,000 mg, intravenous, Q12H ROSA MARIA cholecalciferol, 2,000 Units, oral, Daily ergocalciferol, 50,000 Units, oral, Weekly fluticasone propion-salmeterol, 1 puff, inhalation, BID furosemide, 20 mg, oral, Daily gabapentin, 300 mg, oral, QID guaiFENesin ER, 600 mg, oral, BID heparin flush (porcine), 5 mL, intra-catheter, Q12H ROSA MARIA insulin glargine, 40 Units, subcutaneous, Nightly insulin lispro, 1-4 Units, subcutaneous, Nightly insulin lispro, 1-7 Units, subcutaneous, TID with meals insulin lispro, 15 Units, subcutaneous, TID with meals [START ON 11/27/2019] insulin NPH, 15 Units, subcutaneous, Daily montelukast, 10 mg, oral, Nightly mycophenolate mofetil, 1,000 mg, oral, BID nicotine, 1 patch, transdermal, Daily ofloxacin, 1 drop, each eye, BID [START ON 11/27/2019] predniSONE, 20 mg, oral, Daily rivaroxaban, 20 mg, oral, Daily with dinner ruxolitinib, 5 mg, oral, BID sodium chloride 0.9 %, 30 mL, swish & spit, QID sodium chloride 0.9%, 0.5-20 mL, intra-catheter, Q8H ROSA MARIA sulfamethoxazole-trimethoprim, 160 mg of trimethoprim, oral, 2 times per day on Sat tacrolimus, 0.5 mg, oral, Every other day tiotropium, 1 capsule, inhalation, Daily vancomycin, 1,500 mg, intravenous, Q24H voriCONAZOLE, 200 mg, oral, BID Objective Vitals: 24hr Min/Max: Temp Min: 36.4 ??C (97.5 ??F) Max: 36.7 ??C (98.1 ??F) Pulse Min: 72 Max: 89 BP Min: 125/71 Max: 137/72 Resp Min: 16 Max: 18 SpO2 Min: 95 % Max: 100 % Most Recent : Vitals: 11/25/19 2335 11/26/19 0425 11/26/19 0828 11/26/19 1218 BP: 137/72 136/75 135/77 128/81 BP Location: Left arm Patient Position: Sitting Sitting Pulse: 81 72 80 79 Resp: 18 16 16 16 Temp: 36.5 ??C (97.7 ??F) 36.4 ??C (97.5 ??F) 36.5 ??C (97.7 ??F) 36.5 ??C (97.7 ??F) TempSrc: Oral Oral Oral Oral SpO2: 100% 95% 96% 95% Weight: Height: Intake/Output Summary (Last 24 hours) at 11/26/2019 1331 Last data filed at 11/26/2019 1150 Gross per 24 hour Intake 3110 ml Output 3775 ml Net -665 ml Physical Exam: General appearance: appears stated age Head: Normocephalic, without obvious abnormality Eyes: conjunctivae/corneas clear. PERRL Throat/Mouth: no mucositis or thrush and lips, mucosa, and tongue normal; teeth and gums normal Neck: no adenopathy and no JVD Lungs: +expiratory coarse and wheezing to auscultation bilaterally Heart: regular rate and rhythm, S1, S2 normal, no murmur, click, rub or gallop Abdomen: soft, non-tender; bowel sounds normal; no masses, no organomegaly Extremities: No edema, well perfused Pulses: 2+ and symmetric Skin: Skin color, texture, turgor normal. No rashes or lesions Neurologic: Alert and oriented x4, non-focal Lab/Radiology/Diagnostic Review: Laboratory review: I have personally reviewed the following labs: CBC: Recent Labs Lab Units 11/26/19 0423 WBC K/cumm 22.1* HEMOGLOBIN g/dL 13.1 HEMATOCRIT % 40.8 MCV fL 105.2* MCH pg 33.8* MCHC g/dL 32.1* RDW CV % 14.9 RDWSD fL 56.8* MPV fL 11.8 NEUTROS ABS K/cumm 17.1* CMP: Recent Labs Lab Units 11/26/19 1146 11/26/19 0423 SODIUM mmol/L -- -- 140 POTASSIUM PLASMA mmol/L -- -- 5.0* CO2 mmol/L -- -- 30 BUN SERUM mg/dL -- -- 30* GLUCOSE mg/dL -- -- 274* POC GLUCOSE MONITOR mg/dL 271* < > -- CREATININE mg/dL -- -- 0.76* CALCIUM mg/dL -- -- 9.1 CHLORIDE mmol/L -- -- 104 ALBUMIN g/dL -- -- 3.7 AST Units/L -- -- 38 ALT Units/L -- -- 43 ALK PHOS Units/L -- -- 103 BILIRUBIN TOTAL mg/dL -- -- 0.3 TOTAL PROTEIN g/dL -- -- 7.0 ANIONGAP mmol/L -- -- 6 < > = values in this interval not displayed. LDH: Recent Labs Lab Units 11/26/19 0423 LACTATE DEHYDROGENASE (LDH) Units/L 676* Uric Acid: Recent Labs Lab Units 11/26/19 0423 URIC ACID mg/dL 3.4 Tacrolimus level: Recent Labs Lab Units 11/26/19 0842 11/20/19 0929 TACRO RANDOM ng/mL -- -- <1.0 TACRO TROUGH ng/mL 1.6 < > -- < > = values in this interval not displayed. Sirolimus level: Cyclosporine level: PT: Recent Labs Lab Units 11/23/19 0307 PROTIME (PT) sec 17.4* PTT: Recent Labs Lab Units 11/23/19 0307 APTT sec 29 Radiology: Transthoracic Echo Complete W Doppler/CF Final Result CT Chest W Contrast Final Result 1. Scattered tree-in-bud and nodular opacities throughout both lungs suggestive of an acute infectious process. Thickened and debris-filled bronchi which are focally worse in the left lower lobe may indicate superimposed aspiration pneumonitis. Recommend follow-up noncontrast chest CT after the onset of appropriate medical therapy to document resolution. 2. Moderate to severe centrilobular emphysema. Electronically signed by: Bri Collins D.O. X-ray chest 1 view (Portable) Final Result Comparison to 08/22/2019. Redemonstrated are bilateral emphysematous changes with mild bibasilar atelectasis. The lungs are otherwise clear without focal consolidation or pulmonary edema. No definite pleural effusion or pneumothorax. Heart size and mediastinal contour are unchanged. Dictated by: Elsi Sweet M.D. The radiology attending physician has personally reviewed this study, and had reviewed and/or edited this written report and agrees with it. Electronically signed by: Candice J. Lara, M.D. Lab Results Component Value Date MICROBIOLOGY (.) 11/21/2019 Final Report: Greater than or equal to 100,000 colonies/ml of Streptococcus pneumoniae Moxifloxacin susceptibility results can be inferred from gatifloxacin susceptibility testing. Plus growth of clinically insignificant bacterial oscar. MICROBIOLOGY 11/20/2019 Final Report: Negative for Aspergillus Galactomannan Antigen Index: <0.500 MICROBIOLOGY Preliminary Report: No growth of fungus to date 11/20/2019 MICROBIOLOGY Final Report: No growth 11/20/2019 MICROBIOLOGY Final Report: No growth 11/20/2019 MICROBIOLOGY Final Report: No growth 08/22/2019 MICROBIOLOGY Final Report: No growth 08/22/2019 MICROBIOLOGY 11/22/2018 Final Report: Respiratory Pathogen nucleic acids NOT DETECTED (NEGATIVE) MICROBIOLOGY Final Report: No growth 11/22/2018 MICROBIOLOGY Final Report: No growth 11/22/2018 Assessment/Plan Nervous Peripheral neuropathy Continue gabapentin Respiratory Pneumonia POA. Possibly community-acquired and/or 2/[address] Strep pneumoniae pos sputum cx.See SOB problem. Shortness of breath Concern for poss GVHD and/or poss COPD [...] pcn, vanc - On Cefe/Vanc (11/20 - ), plan to change to augmentin prior to d/c to continue through 12/04 to complete 14-day course - Continue immunosuppresives. - Pulm toilet?? COPD, severe ([facility]) Continue inhalers Circulatory CHF (congestive heart failure) ([facility]) With diastolic dysfunction, new diagnosis. -Continue Lasix. -(11/23) Rpt TTE showed EF 65%, unable to measure PA pressure, normal diastolic function. DVT (deep venous thrombosis) ([facility]) Continue xarelto Musculoskeletal Osteopenia Continue home vitamin D and dietary calcium Endocrine/Metabolic Pure hypercholesterolemia Continue statin Type 2 diabetes mellitus (CMS/HCC) On basaglar 30 units AM and novolog 10 units TID with meals and SSI at home. No longer taking metformin at home. Follows with endocrine outpatient, however he has missed multiple appointments. - BG >400 on admit (pt stated he did not take his AM insulin). - Required Insulin gtt on 11/23, transitioned to 40U Lantus qHS, 15U NPH w/ steroids, 15U Lispro withmeals, HD SSI. - Endocrine following, appreciate recs - Hgb A1C 13 on admit. Hematologic 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) Induction with 7+3 and HiDAC consolidation x3??s/p decitabine maintenance on the CALGB 24010 protocol. -??Relapsed disease,??status post an allogeneic transplant with busulfan and Cytoxan on the AMD allogeneic study with his sister, 08/27 match; with day 0 on 11/09/2009.?? - Currently in remission. Follows with Dr. Del Valle - On tacro, cellcept - OI ppx: Cont acyclovir. Added vori and bactrim (pt stated he was no longer taking at home). Immune Cesau-dvgyby-unbj disease (CMS/HCC) Continue cellcept 1 g BID and tacrolimus??0.5 every other day. Last PFT with FEV1 50% in 12/2017 -??Admitted on prednisone 60 bid (on pred taper) - cont eye drops - Taper pred --> 20 bid on 11/23 --> taper to 20 daily on 11/26, plan to continue this dose at d/c. - Start Jakafi 11/23, awaiting study approval - Cont spiriva; albuterol PRN. Continue home advair. Added Azithro 250 3x/weekly Other Tobacco abuse Nicotine patch Iza Gordon NP [phone] Cosigned by Josué Del Valle MD PhD at 11/26/2019 5:[address] RAILWAY LINE INSTALLER ET RAILWAY LINE INSTALLER ET RAILWAY LINE INSTALLER Associated attestation - Josué Del Valle MD PhD - 11/26/2019 5:[address] RAILWAY LINE INSTALLER I have seen and examined the patient on 11/26/19 in conjunction with the non- physician provider. History: AML, cGvHD Physical Exam: GEN: no acute distress HEENT: no mucositis, anicteric sclera Pulm: clear to ausculation bilaterally CV: rate and rhythm regular ABD: soft, nondistended, nontender, bowel sounds active Skin: no rashes, lesions Ext: No edema Neuro: alert, oriented x 4 Assessment/Plan: Antibiotics and steroids and O2 Josué Del Valle MD PhD * Leni Potter MD - 11/25/2019 4:51 PM CST Endocrine Diabetes Inpatient Follow Up 11/25/2019 Bri Jones [id number] Kirt Lindsay DO Admit Date: 11/20/2019 Length of Stay: 5 SUBJECTIVE: Bri Jones is a 54 y.o. male with T2DM, AML s/p allogenic stem jori transplant, COPD,GVHD who presented with dyspnea and is on high doses of steroids. Interval: Feeling well today. Said he snacked on peanut butter and crackers last night. Also had Sera Mist.Ate all of his dinner. No nausea/vomiting. Continues on prednisone 20 mg BID. Blood sugar: Recent Labs Lab Units 11/25/19 1150 11/25/19 0807 11/25/19 0515 11/25/19 0319 11/25/19 0316 11/24/19 2354 11/24/19 2110 11/24/19 1717 11/24/19 1312 11/24/19 0734 GLUCOSE mg/dL -- -- -- 528* -- -- -- -- -- -- POC GLUCOSE MONITOR mg/dL 121 213* 425* -- 493* 376* 354* 195 211* 211* Review of Systems Review of systems per HPI and otherwise all other systems are negative OBJECTIVE: Vitals: 11/25/19 0320 11/25/19 0759 11/25/19 1130 11/25/19 1537 BP: 133/75 128/79 123/76 125/71 BP Location: Left arm Left arm Left arm Patient Position: Lying Lying Lying Pulse: 73 73 79 89 Resp: 18 18 18 18 Temp: 36.5 ??C (97.7 ??F) 36.5 ??C (97.7 ??F) 36.8 ??C (98.2 ??F) 36.5 ??C (97.7 ??F) TempSrc: Oral Oral Oral Oral SpO2: 100% 100% 98% 98% Weight: Height: I/O this shift: In: 1120 [P.O.:1120] Out: 2200 [Urine:2200] Physical Exam General: Alert, no acute distress, up walking aroudn HENT: mucus membranes are moist, no oral lesions Eyes: Sclera anicteric, EOMI, no proptosis Lungs: normal effort, coarse Heart: regular rate, normal rhythm, no murmur Abdomen: soft, non-tender, non-distended Extremities: 2+ edema Neuro: grossly intact, alert and oriented x 3 Skin: No rash LAB/IMAGING: Recent Results (from the past 24 hour(s)) POCT glucose Collection Time: 11/24/19 5:17 PM Result Value Ref Range Glucose, POC 195 70 - 199 mg/dL POCT glucose Collection Time: 11/24/19 9:10 PM Result Value Ref Range Glucose, POC 354 (H) 70 - 199 mg/dL POCT glucose Collection Time: 11/24/19 11:54 PM Result Value Ref Range Glucose, POC 376 (H) 70 - 199 mg/dL POCT glucose Collection Time: 11/25/19 3:16 AM Result Value Ref Range Glucose, POC 493 (Critical) 70 - 199 mg/dL Glucose comment 1 Doctor Notified Magnesium Collection Time: 11/25/19 3:19 AM Result Value Ref Range Magnesium 1.9 1.4 - 2.5 mg/dL Phosphorus Collection Time: 11/25/19 3:19 AM Result Value Ref Range Phosphorus, pl 2.6 2.3 - 4.5 mg/dL Basic metabolic panel Collection Time: 11/25/19 3:19 AM Result Value Ref Range Sodium 133 (L) 135 - 145 mmol/L Potassium, pl 5.2 (H) 3.3 - 4.9 mmol/L Chloride 96 (L) 97 - 110 mmol/L CO2 28 22 - 32 mmol/L Anion gap 9 2 - 15 mmol/L BUN 35 (H) 8 - 25 mg/dL Creatinine 0.84 0.80 - 1.30 mg/dL Glucose 528 (Critical) 70 - 199 mg/dL Calcium 8.5 8.5 - 10.3 mg/dL Vancomycin, random Collection Time: 11/25/19 3:19 AM Result Value Ref Range Vancomycin, Random 16.3 mcg/mL CBC without differential Collection Time: 11/25/19 3:19 AM Result Value Ref Range WBC 19.9 (H) 3.8 - 9.9 K/cumm Hgb 12.0 (L) 13.0 - 17.5 g/dL Hct 37.9 (L) 38.9 - 50.3 % Plt 265 150 - 400 K/cumm MPV 11.4 9.1 - 12.3 fL RBC 3.63 (L) 4.30 - 5.80 M/cumm MCV 104.4 (H) 81.3 - 96.4 fL MCH 33.1 27.1 - 33.3 pg MCHC 31.7 (L) 32.3 - 35.7 g/dL RDW CV 14.6 11.1 - 14.9 % RDW SD 56.0 (H) 35.7 - 48.1 fL NRBC abs 1.99 (H) 0.00 - 0.01 K/cumm Manual Differential Collection Time: 11/25/19 3:19 AM Result Value Ref Range Differential Manual Cells Counted 113 Neutrophil abs 16.6 (H) 1.7 - 6.5 K/cumm Imm gran abs 1.2 (H) 0.0 - 0.1 K/cumm Lymphocyte abs 0.9 0.8 - 3.3 K/cumm Monocyte abs 1.2 (H) 0.2 - 0.8 K/cumm Neutrophil pct 83.2 % Lymphocyte pct 4.4 % Monocyte pct 6.2 % Neutrophilic metamyelocytes 0.9 % Myelocytes 4.4 % Promyelocyte 0.9 % RBC morphology Present (A) Anisocytosis Moderate (A) Poikilocytosis Slight (A) Macrocytes 3-7/HPF (A) Platelet estimate Adequate Critical Result Callback Chemistry Collection Time: 11/25/19 3:19 AM Result Value Ref Range Date Notified [id number] Time Notified 422 TestName glucose Called/Read Back narcisa rivero Credentials RN Called By cs POCT glucose Collection Time: 11/25/19 5:15 AM Result Value Ref Range Glucose, POC 425 (H) 70 - 199 mg/dL POCT glucose Collection Time: 11/25/19 8:07 AM Result Value Ref Range Glucose, POC 213 (H) 70 - 199 mg/dL POCT glucose Collection Time: 11/25/19 11:50 AM Result Value Ref Range Glucose, POC 121 70 - 199 mg/dL ECG 12 lead Collection Time: 11/25/19 1:31 PM Result Value Ref Range Ventricular Rate EKG/Min 71 BPM Atrial Rate 71 BPM [place]-Interval (MSEC) 102 ms QRS-Interval (MSEC) 102 ms QT-Interval (MSEC) 374 ms QTc 406 ms P [place] 17 degrees R [place] 73 degrees T [place] 58 degrees Diagnosis Sinus rhythm with short [place] Otherwise normal ECG When compared with ECG of 20-NOV-2019 12:08, T wave amplitude has decreased in Lateral leads Lab Results Component Value Date TSH 1.02 05/29/2019 T3FREE 3.6 02/04/2017 FREET4 1.16 02/04/2017 Lab Results Component Value Date CORTISOL 20.8 12/18/2017 Lab Results Component Value Date CHOL 193 05/29/2019 TRIG 266 (H) 05/29/2019 HDL 74 05/29/2019 LDL 154 (H) 05/07/2016 Lab Results Component Value Date PTH 54 08/07/2019 Assessment/Plan CHF (congestive heart failure) ([facility]) Assessment & Plan Closely monitor blood sugar to avoid hypoglycemia Vitamin D deficiency Assessment & Plan Last vitamin-D level low at 16. Continue vitamin D2 19421 units weekly and vitamin D3 2000 units daily Pure hypercholesterolemia Assessment & Plan On atorvastatin 40 mg daily Type 2 diabetes mellitus ([facility]) Assessment & Plan Patient has uncontrolled type 2 diabetes with [...] basal/bolus, doses pending. Follows with endocrinology here. Xagpy-aohpge-cyih disease (CMS/HCC) Assessment & Plan He is on prednisone 20 mg BID Leni Potter MD Endocrinology Fellow, PGY-5 Cosigned by Taye Steward MD at 11/25/2019 7:[address] RAILWAY LINE INSTALLER ET RAILWAY LINE INSTALLER ET RAILWAY LINE INSTALLER Associated attestation - Taye Steward MD - 11/25/2019 7:[address] RAILWAY LINE INSTALLER I have seen and examined the patient on 11/25/19. I agree with the findings and plan of care as documented in the resident's/fellow's note. * Lissy Warner NP - 11/25/2019 8:15 AM CST BMT Progress 11/25/2019 Subjective/Interval History: Patient is a 54 y.o. male with hx AML s/p allogeneic SCT in 2008 admits with sob and GVHD. Denies F/C/N/V/D. Reports stable appetite. Denies chest pain/dizziness/headche. Reports sob stable and almost at baseline. Ambulating. Objective Vitals: Temp: [36.5 ??C (97.7 ??F)-36.8 ??C (98.2 ??F)] 36.8 ??C (98.2 ??F) Pulse: [73-87] 79 Resp: [18-23] 18 BP: (111-133)/(61-79) 123/76 Intake/Output Summary (Last 24 hours) at 11/25/2019 1141 Last data filed at 11/25/2019 1000 Gross per 24 hour Intake 3716 ml Output 5325 ml Net -1609 ml Physical exam: General appearance: chronically ill appearing, comfortable HEENT: Anicteric sclera, no oral ulcerations, tongue, gums appear normal, mouth dry Lungs: coarse lobes bilaterally with expiratory wheezing present Heart: regular rate and rhythm, S1, S2 normal Abdomen: soft, non-tender; bowel sounds normal Extremities: No LE edema present, warm, dry Skin: chronic skin GVHD. Hyperpigmented and dry. Neurologic: Alert and oriented x4, non-focal exam Scheduled Meds:acyclovir, 400 mg, oral, Q8H atorvastatin, 40 mg, oral, Daily azithromycin, 250 mg, oral, Once per day on Sat cefepime, 2,000 mg, intravenous, Q12H ROSA MARIA cholecalciferol, 2,000 Units, oral, Daily ergocalciferol, 50,000 Units, oral, Weekly fluticasone propion-salmeterol, 1 puff, inhalation, BID furosemide, 20 mg, oral, Daily gabapentin, 300 mg, oral, QID guaiFENesin ER, 600 mg, oral, BID heparin flush (porcine), 5 mL, intra-catheter, Q12H COUNTS INCLUDE 234 BEDS AT THE [facility] insulin glargine, 40 Units, subcutaneous, Nightly insulin lispro, 1-4 Units, subcutaneous, Nightly insulin lispro, 1-7 Units, subcutaneous, TID with meals insulin lispro, 15 Units, subcutaneous, TID with meals insulin NPH, 10 Units, subcutaneous, BID montelukast, 10 mg, oral, Nightly mycophenolate mofetil, 1,000 mg, oral, BID nicotine, 1 patch, transdermal, Daily ofloxacin, 1 drop, each eye, BID predniSONE, 20 mg, oral, BID rivaroxaban, 20 mg, oral, Daily with dinner ruxolitinib, 5 mg, oral, BID sodium chloride 0.9 %, 30 mL, swish & spit, QID sodium chloride 0.9%, 0.5-20 mL, intra-catheter, Q8H COUNTS INCLUDE 234 BEDS AT THE [facility] sulfamethoxazole-trimethoprim, 160 mg of trimethoprim, oral, 2 times per day on Sat tacrolimus, 0.5 mg, oral, Every other day tiotropium, 1 capsule, inhalation, Daily vancomycin, 1,500 mg, intravenous, Q24H voriCONAZOLE, 200 mg, oral, BID Continuous Infusions:sodium chloride 0.9%, 30 mL/hr, Last Rate: 30 mL/hr (11/24/19 5253) sodium chloride 0.9%, 0-250 mL PRN Meds:.??? acetaminophen ??? acetaminophen ??? albuterol ??? albuterol ? ? aluminum & magnesium nwqsthrho-hlmjxftzzbo-blpjvfrixuztrbk-lidocaine (MAGIC MOUTHWASH) suspension 1-1-1 ??? bacitracin-polymyxin B ??? camphor-menthol ??? dextrose OR dextrose ??? dextrose OR dextrose ??? diphenhydrAMINE ??? glucagon ??? heparin flush (porcine) ??? loperamide ??? magnesium sulfate ??? magnesium sulfate ??? oxyCODONE ??? lubricant ??? potassium chloride ??? potassium chloride ER ??? pramoxine-zinc oxide ??? sodium chloride ??? sodium chloride 0.9% ??? sodium chloride 0.9% ??? sodium chloride 0.9% ??? white petrolatum-mineral oil Lab/Radiology/Diagnostic Review: Laboratory review: I have personally reviewed the following labs below. Lab results in the last 24 hours: Recent Results (from the past 24 hour(s)) Tacrolimus level trough Collection Time: 11/24/19 12:04 PM Result Value Ref Range Tacrolimus, trough 1.0 ng/mL Vancomycin, trough Please draw before 4th dose of 1000 mg. Collection Time: 11/24/19 12:06 PM Result Value Ref Range Vancomycin, trough 22.7 (Critical) 10.0 - 20.9 mcg/mL Critical Result Callback Chemistry Collection Time: 11/24/19 12:06 PM Result Value Ref Range Date Notified [id number] Time Notified 12:59 TestName Vancomycin Tr Called/Read Back Critical result called to and read back by Marisa Vázquez (RN) on 11/24/2019 12:59:[address] RAILWAY LINE INSTALLER to ec. Credentials RN Called By ec POCT glucose Collection Time: 11/24/19 1:12 PM Result Value Ref Range Glucose, POC 211 (H) 70 - 199 mg/dL POCT glucose Collection Time: 11/24/19 5:17 PM Result Value Ref Range Glucose, POC 195 70 - 199 mg/dL POCT glucose Collection Time: 11/24/19 9:10 PM Result Value Ref Range Glucose, POC 354 (H) 70 - 199 mg/dL POCT glucose Collection Time: 11/24/19 11:54 PM Result Value Ref Range Glucose, POC 376 (H) 70 - 199 mg/dL POCT glucose Collection Time: 11/25/19 3:16 AM Result Value Ref Range Glucose, POC 493 (Critical) 70 - 199 mg/dL Glucose comment 1 Doctor Notified Magnesium Collection Time: 11/25/19 3:19 AM Result Value Ref Range Magnesium 1.9 1.4 - 2.5 mg/dL Phosphorus Collection Time: 11/25/19 3:19 AM Result Value Ref Range Phosphorus, pl 2.6 2.3 - 4.5 mg/dL Basic metabolic panel Collection Time: 11/25/19 3:19 AM Result Value Ref Range Sodium 133 (L) 135 - 145 mmol/L Potassium, pl 5.2 (H) 3.3 - 4.9 mmol/L Chloride 96 (L) 97 - 110 mmol/L CO2 28 22 - 32 mmol/L Anion gap 9 2 - 15 mmol/L BUN 35 (H) 8 - 25 mg/dL Creatinine 0.84 0.80 - 1.30 mg/dL Glucose 528 (Critical) 70 - 199 mg/dL Calcium 8.5 8.5 - 10.3 mg/dL Vancomycin, random Collection Time: 11/25/19 3:19 AM Result Value Ref Range Vancomycin, Random 16.3 mcg/mL CBC without differential Collection Time: 11/25/19 3:19 AM Result Value Ref Range WBC 19.9 (H) 3.8 - 9.9 K/cumm Hgb 12.0 (L) 13.0 - 17.5 g/dL Hct 37.9 (L) 38.9 - 50.3 % Plt 265 150 - 400 K/cumm MPV 11.4 9.1 - 12.3 fL RBC 3.63 (L) 4.30 - 5.80 M/cumm MCV 104.4 (H) 81.3 - 96.4 fL MCH 33.1 27.1 - 33.3 pg MCHC 31.7 (L) 32.3 - 35.7 g/dL RDW CV 14.6 11.1 - 14.9 % RDW SD 56.0 (H) 35.7 - 48.1 fL NRBC abs 1.99 (H) 0.00 - 0.01 K/cumm Manual Differential Collection Time: 11/25/19 3:19 AM Result Value Ref Range Differential Manual Cells Counted 113 Neutrophil abs 16.6 (H) 1.7 - 6.5 K/cumm Imm gran abs 1.2 (H) 0.0 - 0.1 K/cumm Lymphocyte abs 0.9 0.8 - 3.3 K/cumm Monocyte abs 1.2 (H) 0.2 - 0.8 K/cumm Neutrophil pct 83.2 % Lymphocyte pct 4.4 % Monocyte pct 6.2 % Neutrophilic metamyelocytes 0.9 % Myelocytes 4.4 % Promyelocyte 0.9 % RBC morphology Present (A) Anisocytosis Moderate (A) Poikilocytosis Slight (A) Macrocytes 3-7/HPF (A) Platelet estimate Adequate Critical Result Callback Chemistry Collection Time: 11/25/19 3:19 AM Result Value Ref Range Date Notified [id number] Time Notified 422 TestName glucose Called/Read Back narcisa rivero Credentials RN Called By POCT glucose Collection Time: 11/25/19 5:15 AM Result Value Ref Range Glucose, POC 425 (H) 70 - 199 mg/dL POCT glucose Collection Time: 11/25/19 8:07 AM Result Value Ref Range Glucose, POC 213 (H) 70 - 199 mg/dL Recent Labs Lab Units 11/25/1931811/24/1944211/23/19 0307 11/20/19 0945 WBC K/cumm 19.9* 21.5* 20.6* < > 14.1* HEMOGLOBIN g/dL 12.0* 12.4* 12.1* < > 14.2 HEMATOCRIT % 37.9* 38.4* 36.1* < > 42.2 NEUTROS PCT % 83.2 83.2 84.9 < > 61.0 LYMPHS PCT % 4.4 12.4 8.0 < > 34.0 MONOS PCT % 6.2 3.5 5.3 < > 2.0 EOS PCT % -- -- -- -- 1.0 < > = values in this interval not displayed. Recent Labs Lab Units 11/25/1931811/24/1944211/23/19 0307 CREATININE mg/dL 0.84 0.75* 0.78* Assessment /Plan Shortness of breath Assessment & Plan Concern for poss GVHD and/or poss COPD [...] pcn, vanc - On Cefe/Vanc (11/20 - ) - Continue immunosuppresives. - Pulm toilet?? Yfygi-fetiej-rzzf disease ([facility]) Assessment & Plan Continue cellcept 1 g BID and tacrolimus??0.5 every other day. Last PFT with FEV1 50% in 12/2017 -??on prednisone 60 bid at admission (pred taper) - cont eye drops - Taper pred --> 20 bid on 11/23. - Start Jakafi 11/23, awaiting study approval - Cont spiriva; albuterol PRN. Continue home advair. Added Azithro 250 3x/weekly AML (acute myeloid leukemia) in remission ([facility]) Assessment & Plan Induction with 7+3 and HiDAC consolidation x3??s/p decitabine maintenance on the CALGB 62518 protocol. -??Relapsed disease,??status post an allogeneic transplant with busulfan and Cytoxan on the AMD allogeneic study with his sister, 08/27 match; with day 0 on 11/09/2009.?? - Currently in remission. Follows with Dr. Del Valle - On tacro, cellcept - OI ppx: Cont acyclovir. Added vori and bactrim (pt stated he was no longer taking at home). Pneumonia Assessment & Plan POA. Likely community-acquired. Strep pneumoniae pos sputum cx. See SOB problem. Tobacco abuse Assessment & Plan Nicotine patch Peripheral neuropathy Assessment & Plan Continue gabapentin CHF (congestive heart failure) ([facility]) Assessment & Plan With diastolic dysfunction, new diagnosis. -Continue Lasix. -(11/23) Rpt TTE showed EF 65%, unable to measure PA pressure, normal diastolic function. DVT (deep venous thrombosis) ([facility]) Assessment & Plan Continue xarelto COPD, severe ([facility]) Assessment & Plan Continue inhalers Pure hypercholesterolemia Assessment & Plan Continue statin Type 2 diabetes mellitus ([facility]) Assessment & Plan On basaglar 30 units AM and novolog 10 units TID with meals and SSI at home. No longer taking metformin at home. Follows with endocrine outpatient, however he has missed multiple appointments. - BG >400 on admit (pt stated he did not take his AM insulin). - Required Insulin gtt on 11/23, transitioned to 40U Lantus qHS, 10U NPH bid w/ steroids, 15U Lispro with meals, HD SSI. - Endocrine following, appreciate recs - Hgb A1C 13 on admit. Osteopenia Assessment & Plan Continue home vitamin D and dietary calcium CORONA Rudolph-C Nurse Practitioner, Blood and Marrow Transplant Cosigned by Josué Del Valle MD PhD at 11/25/2019 7:[address] RAILWAY LINE INSTALLER ET RAILWAY LINE INSTALLER ET RAILWAY LINE INSTALLER Associated attestation - Josué Del Valle MD PhD - 11/25/2019 7:[address] RAILWAY LINE INSTALLER I have seen and examined the patient on 11/25/19 in conjunction with the non- physician provider. History: AML/ cGvHD/ Pneumonia Physical Exam: GEN: no acute distress HEENT: no mucositis, anicteric sclera Pulm: clear to ausculation bilaterally CV: rate and rhythm regular ABD: soft, nondistended, nontender, bowel sounds active Skin: no rashes, lesions Ext: No edema Neuro: alert, oriented x 4 Assessment/Plan: Steroids, antibiotics and Jakafi Josué Del Valle MD PhD * Leni Potter MD - 11/24/2019 4:57 PM CST Endocrine Diabetes Inpatient Follow Up 11/24/2019 Bri Jones [id number] Krit Lindsay DO Admit Date: 11/20/2019 Length of Stay: 4 SUBJECTIVE: Bri Jones is a 54 y.o. male with T2DM, AML s/p allogenic stem jori transplant, COPD,GVHD who presented with dyspnea and is on high doses of steroids. Interval: Feeling well today. Has a great appetite. No nausea/vomiting. Prednisone decreased to 20 mg BID. Blood sugar: Recent Labs Lab Units 11/24/19 1312 11/24/19 0734 11/24/19 0443 11/24/19 0438 11/24/19 0213 11/24/19 0047 11/23/19 2320 11/23/19 2145 11/23/19 2000 11/23/19 1820 GLUCOSE mg/dL -- -- 243* -- -- -- -- -- -- -- POC GLUCOSE MONITOR mg/dL 211* 211* -- 237* 225* 205* 241* 367* 423* 473* Review of Systems Review of systems per HPI and otherwise all other systems are negative OBJECTIVE: Vitals: 11/24/19 0435 11/24/19 0755 11/24/19 1154 11/24/19 1629 BP: 129/72 132/79 122/77 111/61 BP Location: Left arm Left arm Left arm Left arm Patient Position: Sitting Sitting Lying Lying Pulse: 69 87 81 78 Resp: 18 18 18 18 Temp: 36.4 ??C (97.5 ??F) 36.6 ??C (97.9 ??F) 36.5 ??C (97.7 ??F) 36.6 ??C (97.8 ??F) TempSrc: Oral Oral Oral Oral SpO2: 95% 100% 98% 98% Weight: Height: I/O this shift: In: 1640 [P.O.:1640] Out: 875 [Urine:875] Physical Exam General: Alert, no acute distress, up walking aroudn HENT: mucus membranes are moist, no oral lesions Eyes: Sclera anicteric, EOMI, no proptosis Lungs: normal effort, coarse Heart: regular rate, normal rhythm, no murmur Abdomen: soft, non-tender, non-distended Extremities: 2+ edema Neuro: grossly intact, alert and oriented x 3 Skin: No rash LAB/IMAGING: Recent Results (from the past 24 hour(s)) POCT glucose Collection Time: 11/23/19 6:20 PM Result Value Ref Range Glucose, POC 473 (Critical) 70 - 199 mg/dL Glucose comment 1 RN Notified POCT glucose Collection Time: 11/23/19 8:00 PM Result Value Ref Range Glucose, POC 423 (H) 70 - 199 mg/dL POCT glucose Collection Time: 11/23/19 9:45 PM Result Value Ref Range Glucose, POC 367 (H) 70 - 199 mg/dL POCT glucose Collection Time: 11/23/19 11:20 PM Result Value Ref Range Glucose, POC 241 (H) 70 - 199 mg/dL POCT glucose Collection Time: 11/24/19 12:47 AM Result Value Ref Range Glucose, POC 205 (H) 70 - 199 mg/dL POCT glucose Collection Time: 11/24/19 2:13 AM Result Value Ref Range Glucose, POC 225 (H) 70 - 199 mg/dL POCT glucose Collection Time: 11/24/19 4:38 AM Result Value Ref Range Glucose, POC 237 (H) 70 - 199 mg/dL Magnesium Collection Time: 11/24/19 4:43 AM Result Value Ref Range Magnesium 1.9 1.4 - 2.5 mg/dL Phosphorus Collection Time: 11/24/19 4:43 AM Result Value Ref Range Phosphorus, pl 3.4 2.3 - 4.5 mg/dL Basic metabolic panel Collection Time: 11/24/19 4:43 AM Result Value Ref Range Sodium 140 135 - 145 mmol/L Potassium, pl 5.0 (H) 3.3 - 4.9 mmol/L Chloride 102 97 - 110 mmol/L CO2 31 22 - 32 mmol/L Anion gap 7 2 - 15 mmol/L BUN 28 (H) 8 - 25 mg/dL Creatinine 0.75 (L) 0.80 - 1.30 mg/dL Glucose 243 (H) 70 - 199 mg/dL Calcium 9.0 8.5 - 10.3 mg/dL CBC without differential Collection Time: 11/24/19 4:43 AM Result Value Ref Range WBC 21.5 (H) 3.8 - 9.9 K/cumm Hgb 12.4 (L) 13.0 - 17.5 g/dL Hct 38.4 (L) 38.9 - 50.3 % Plt 268 150 - 400 K/cumm MPV 11.4 9.1 - 12.3 fL RBC 3.73 (L) 4.30 - 5.80 M/cumm MCV 102.9 (H) 81.3 - 96.4 fL MCH 33.2 27.1 - 33.3 pg MCHC 32.3 32.3 - 35.7 g/dL RDW CV 14.3 11.1 - 14.9 % RDW SD 53.9 (H) 35.7 - 48.1 fL NRBC abs 1.02 (H) 0.00 - 0.01 K/cumm Manual Differential Collection Time: 11/24/19 4:43 AM Result Value Ref Range Differential Manual Cells Counted 113 Neutrophil abs 17.8 (H) 1.7 - 6.5 K/cumm Imm gran abs 0.2 (H) 0.0 - 0.1 K/cumm Lymphocyte abs 2.7 0.8 - 3.3 K/cumm Monocyte abs 0.8 0.2 - 0.8 K/cumm Neutrophil pct 83.2 % Lymphocyte pct 12.4 % Monocyte pct 3.5 % Neutrophilic metamyelocytes 0.9 % RBC morphology Present (A) Anisocytosis Slight (A) Poikilocytosis Slight (A) Platelet estimate Adequate Morphology scrn See Comment POCT glucose Collection Time: 11/24/19 7:34 AM Result Value Ref Range Glucose, POC 211 (H) 70 - 199 mg/dL Vancomycin, trough Please draw before 4th dose of 1000 mg. Collection Time: 11/24/19 12:06 PM Result Value Ref Range Vancomycin, trough 22.7 (Critical) 10.0 - 20.9 mcg/mL Critical Result Callback Chemistry Collection Time: 11/24/19 12:06 PM Result Value Ref Range Date Notified [id number] Time Notified 12:59 TestName Vancomycin Tr Called/Read Back Critical result called to and read back by Marisa Vázquez (RN) on 11/24/2019 12:59:[address] RAILWAY LINE INSTALLER to ec. Credentials RN Called By ec POCT glucose Collection Time: 11/24/19 1:12 PM Result Value Ref Range Glucose, POC 211 (H) 70 - 199 mg/dL Lab Results Component Value Date TSH 1.02 05/29/2019 T3FREE 3.6 02/04/2017 FREET4 1.16 02/04/2017 Lab Results Component Value Date CORTISOL 20.8 12/18/2017 Lab Results Component Value Date CHOL 193 05/29/2019 TRIG 266 (H) 05/29/2019 HDL 74 05/29/2019 LDL 154 (H) 05/07/2016 Lab Results Component Value Date PTH 54 08/07/2019 Assessment/Plan CHF (congestive heart failure) ([facility]) Assessment & Plan Closely monitor blood sugar to avoid hypoglycemia Vitamin D deficiency Assessment & Plan Last vitamin-D level low at 16. Continue vitamin D2 38411 units weekly and vitamin D3 2000 units daily Pure hypercholesterolemia Assessment & Plan On atorvastatin 40 mg daily Type 2 diabetes mellitus ([facility]) Assessment & Plan Patient has uncontrolled type 2 diabetes with [...] basal/bolus, doses pending. Follows with endocrinology here. Vlmgk-vyktbw-nibx disease ([facility]) Assessment & Plan He is on prednisone 20 mg BID Leni Potter MD Endocrinology Fellow, PGY-5 Cosigned by José Niño MD at 11/24/2019 5:[address] RAILWAY LINE INSTALLER ET RAILWAY LINE INSTALLER ET RAILWAY LINE INSTALLER Associated attestation - José Niño MD - 11/24/2019 5:[address] RAILWAY LINE INSTALLER I have seen and examined the patient on 11/24/19. I agree with the findings and plan of care as documented in the resident's/fellow's note. * Rogers Lagos RN - 11/24/2019 2:13 PM CST 11/24/19 1409 Information Information Obtained From Patient Prior to Admission Support System Friends/neighbors Support system contact info (name, phone, availablity) roommate Lissy [phone] Durable Medical Equipment Walker (wheeled);Cane (single prong) Living Arrangements Friends Type of Residence Private residence Financial Resource Income SSD/SSI Potential Discharge Needs Anticipated discharge level of care Private residence Communications Fiduciary Responsibility Patient/Designated decision maker was informed of [facility] fiduciary relationship as necessary Chart reviewed for Initial admit Patient admitted for treatment of: AML Information obtained from patient Insurance verified as [employer] Prescription Coverage: [employer] Admission Source: home Patient/Family agree with discharge plan Based on a comprehensive family assessment, assistance with instrumental activities of daily livingafter discharge will be provided by His Family Through the course of our work I determined that His Family possesses the skill and ability to provide and monitor the care of the patient when he or she returns home. His family has the capacity to provide/monitor/arrange for the care of the patient. Finally, we determined that his family has the knowledge of available resources and that combining them with their existing resources will suffice to sustain and care for the patient when he or she returns home. The treatment team is aware of thisinformation. All are in agreement with the aftercare plan. ET RAILWAY LINE INSTALLER ET RAILWAY LINE INSTALLER * Rogers Lagos RN - 11/24/2019 2:11 PM CST 11/24/19 1409 Information Information Obtained From Patient Prior to Admission Support System Friends/neighbors Support system contact info (name, phone, availablity) roommate Lissy [phone] Durable Medical Equipment Walker (wheeled);Cane (single prong) Living Arrangements Friends Type of Residence Private residence Financial Resource Income SSD/SSI Potential Discharge Needs Anticipated discharge level of care Private residence Communications Fiduciary Responsibility Patient/Designated decision maker was informed of [facility] fiduciary relationship as necessary ET RAILWAY LINE INSTALLER * Iza Gordon NP - 11/24/2019 7:57 AM CST BMT Progress Note BMT Day: Chief Complaint: Patient is a 54 y.o. male with chief complaint of shortness of breath. Interval History: Reports continued cough, shortness of breath. Remains on 3L O2. Continued IV antibiotics for pneumonia. Otherwise VSS, [facility]febrile[facility] Active Treatment & Therapy Plans for Bri Jones Robert does not have any active plans of the following types: Oncology Chemotherapy Treatment, Oncology Treatment (2), Oncology Treatment (3), Oncology Supportive Care, Specialty Infusion Treatment, Blood Products, BMT, Hematology Allergies: Allergies Allergen Reactions ??? Adhesive Redness Medications: acyclovir, 400 mg, oral, Q8H atorvastatin, 40 mg, oral, Daily azithromycin, 250 mg, oral, Once per day on Sat cefepime, 2,000 mg, intravenous, Q12H ROSA MARIA cholecalciferol, 2,000 Units, oral, Daily ergocalciferol, 50,000 Units, oral, Weekly fluticasone propion-salmeterol, 1 puff, inhalation, BID furosemide, 20 mg, oral, Daily gabapentin, 300 mg, oral, QID guaiFENesin ER, 600 mg, oral, BID heparin flush (porcine), 5 mL, intra-catheter, Q12H COUNTS INCLUDE 234 BEDS AT THE [facility] insulin glargine, 40 Units, subcutaneous, Nightly insulin lispro, 1-4 Units, subcutaneous, Nightly insulin lispro, 1-7 Units, subcutaneous, TID with meals insulin lispro, 20 Units, subcutaneous, TID with meals insulin NPH, 15 Units, subcutaneous, BID montelukast, 10 mg, oral, Nightly mycophenolate mofetil, 1,000 mg, oral, BID nicotine, 1 patch, transdermal, Daily ofloxacin, 1 drop, each eye, BID predniSONE, 20 mg, oral, BID rivaroxaban, 20 mg, oral, Daily with dinner ruxolitinib, 5 mg, oral, BID sodium chloride 0.9 %, 30 mL, swish & spit, QID sodium chloride 0.9%, 0.5-20 mL, intra-catheter, Q8H COUNTS INCLUDE 234 BEDS AT THE [facility] sulfamethoxazole-trimethoprim, 160 mg of trimethoprim, oral, 2 times per day on Sat tacrolimus, 0.5 mg, oral, Every other day tiotropium, 1 capsule, inhalation, Daily vancomycin, 1,000 mg, intravenous, Q12H voriCONAZOLE, 200 mg, oral, BID Objective Vitals: 24hr Min/Max: Temp Min: 36.4 ??C (97.5 ??F) Max: 36.9 ??C (98.4 ??F) Pulse Min: 67 Max: 87 BP Min: 116/71 Max: 145/90 Resp Min: 18 Max: 18 SpO2 Min: 90 % Max: 100 % Most Recent : Vitals: 11/23/19203111/24/19 0045 11/24/19 0435 11/24/19 0755 BP: 128/86 116/71 129/72 132/79 BP Location: Left arm Left arm Left arm Left arm Patient Position: Sitting Sitting Sitting Sitting Pulse: 82 67 69 87 Resp: 18 18 18 18 Temp: 36.9 ??C (98.4 ??F) 36.5 ??C (97.7 ??F) 36.4 ??C (97.5 ??F) 36.6 ??C (97.9 ??F) TempSrc: Oral Oral Oral Oral SpO2: 97% 97% 95% 100% Weight: Height: Intake/Output Summary (Last 24 hours) at 11/24/2019 1120 Last data filed at 11/24/2019 0925 Gross per 24 hour Intake 3002 ml Output 2900 ml Net 102 ml Physical Exam: General appearance: appears stated age Head: Normocephalic, without obvious abnormality Eyes: conjunctivae/corneas clear. PERRL Throat/Mouth: no mucositis or thrush and lips, mucosa, and tongue normal; teeth and gums normal Neck: no adenopathy and no JVD Lungs: +inspiratory/expiratory wheezing to auscultation bilaterally; crackles KEN upper lobes Heart: regular rate and rhythm, S1, S2 normal, no murmur, click, rub or gallop Abdomen: soft, non-tender; bowel sounds normal; no masses, no organomegaly Extremities: 2+ pitting BLE edema, well perfused Pulses: 2+ and symmetric Skin: Skin color, texture, turgor normal. No rashes or lesions Neurologic: Alert and oriented x4, non-focal Lab/Radiology/Diagnostic Review: Laboratory review: I have personally reviewed the following labs: CBC: Recent Labs Lab Units 11/24/19 0443 WBC K/cumm 21.5* HEMOGLOBIN g/dL 12.4* HEMATOCRIT % 38.4* MCV fL 102.9* MCH pg 33.2 MCHC g/dL 32.3 RDW CV % 14.3 RDWSD fL 53.9* MPV fL 11.4 NEUTROS ABS K/cumm 17.8* CMP: Recent Labs Lab Units 11/24/19 0734 11/24/19 0443 11/23/19 0307 SODIUM mmol/L -- 140 -- 131* POTASSIUM PLASMA mmol/L -- 5.0* -- See Comment CO2 mmol/L -- 31 -- 29 BUN SERUM mg/dL -- 28* -- 29* GLUCOSE mg/dL -- 243* -- 379* POC GLUCOSE MONITOR mg/dL 211* -- < > -- CREATININE mg/dL -- 0.75* -- 0.78* CALCIUM mg/dL -- 9.0 -- 8.7 CHLORIDE mmol/L -- 102 -- 92* ALBUMIN g/dL -- -- -- 3.2* AST Units/L -- -- -- See Comment ALT Units/L -- -- -- See Comment ALK PHOS Units/L -- -- -- 100 BILIRUBIN TOTAL mg/dL -- -- -- 0.2 TOTAL PROTEIN g/dL -- -- -- 6.5 ANIONGAP mmol/L -- 7 -- 10 < > = values in this interval not displayed. LDH: Recent Labs Lab Units 11/23/19 030 LACTATE DEHYDROGENASE (LDH) Units/L See Comment Uric Acid: Recent Labs Lab Units 11/23/19 030 URIC ACID mg/dL 4.6 Tacrolimus level: Recent Labs Lab Units 11/20/19 0929 TACRO RANDOM ng/mL <1.0 Sirolimus level: Cyclosporine level: PT: Recent Labs Lab Units 11/23/19 030 PROTIME (PT) sec 17.4* PTT: Recent Labs Lab Units 11/23/19 030 APTT sec 29 Radiology: Transthoracic Echo Complete W Doppler/CF Final Result CT Chest W Contrast Final Result 1. Scattered tree-in-bud and nodular opacities throughout both lungs suggestive of an acute infectious process. Thickened and debris-filled bronchi which are focally worse in the left lower lobe may indicate superimposed aspiration pneumonitis. Recommend follow-up noncontrast chest CT after the onset of appropriate medical therapy to document resolution. 2. Moderate to severe centrilobular emphysema. Electronically signed by: Bri Collins D.O. X-ray chest 1 view (Portable) Final Result Comparison to 08/22/2019. Redemonstrated are bilateral emphysematous changes with mild bibasilar atelectasis. The lungs are otherwise clear without focal consolidation or pulmonary edema. No definite pleural effusion or pneumothorax. Heart size and mediastinal contour are unchanged. Dictated by: Elsi Sweet M.D. The radiology attending physician has personally reviewed this study, and had reviewed and/or edited this written report and agrees with it. Electronically signed by: Candice Lara M.D. Lab Results Component Value Date MICROBIOLOGY (.) 11/21/2019 Preliminary Report - Final Review Pending: Greater than or equal to 100,000 colonies/ml of Streptococcus pneumoniae Moxifloxacin susceptibility results can be inferred from gatifloxacin susceptibility testing. Plus growth of clinically insignificant bacterial oscar. MICROBIOLOGY Preliminary Report: No growth of fungus to date 11/20/2019 MICROBIOLOGY Preliminary Report: No growth to date. 11/20/2019 MICROBIOLOGY Preliminary Report: No growth to date. 11/20/2019 MICROBIOLOGY Final Report: No growth 08/22/2019 MICROBIOLOGY Final Report: No growth 08/22/2019 MICROBIOLOGY 11/22/2018 Final Report: Respiratory Pathogen nucleic acids NOT DETECTED (NEGATIVE) MICROBIOLOGY Final Report: No growth 11/22/2018 MICROBIOLOGY Final Report: No growth 11/22/2018 MICROBIOLOGY Final Report: No growth 12/18/2017 Assessment/Plan Nervous Peripheral neuropathy Continue gabapentin Respiratory Pneumonia POA. Likely community-acquired. Strep pneumoniae pos sputum cx. See SOB problem. Shortness of breath Concern for poss GVHD and/or poss COPD [...] pcn, vanc - On Cefe/Vanc (11/20 - ) - Continue immunosuppresives. - Pulm toilet?? COPD, severe ([facility]) Continue inhalers Circulatory CHF (congestive heart failure) ([facility]) With diastolic dysfunction, new diagnosis. -Continue Lasix. -(11/23) Rpt TTE showed EF 65%, unable to measure PA pressure, normal diastolic function. DVT (deep venous thrombosis) ([facility]) Continue xarelto Musculoskeletal Osteopenia Continue home vitamin D and dietary calcium Endocrine/Metabolic Pure hypercholesterolemia Continue statin Type 2 diabetes mellitus ([facility]) On basaglar 30 units AM and novolog 10 units TID with meals and SSI at home. No longer taking metformin at home. Follows with endocrine outpatient, however he has missed multiple appointments. - BG >400 on admit (pt stated he did not take his AM insulin). - Required Insulin gtt on 11/23, transitioned to 40U Lantus qHS, 15U NPH bid w/ steroids, 20U Lispro with meals, HD SSI. - Endocrine following. - Hgb A1C 13 on admit. Hematologic AML (acute myeloid leukemia) in remission ([facility]) Induction with 7+3 and HiDAC consolidation x3??s/p decitabine maintenance on the CALGB 00029 protocol. -??Relapsed disease,??status post an allogeneic transplant with busulfan and Cytoxan on the AMD allogeneic study with his sister, 08/27 match; with day 0 on 11/09/2009.?? - Currently in remission. Follows with Dr. Del Valle - On tacro, cellcept - OI ppx: Cont acyclovir. Added vori and bactrim (pt stated he was no longer taking at home). Immune Otfkd-rwjswh-ovzn disease ([facility]) Continue cellcept 1 g BID and tacrolimus??0.5 every other day. Last PFT with FEV1 50% in 12/2017 -??on prednisone 60 bid at admission (pred taper) - cont eye drops - Taper pred --> 20 bid on 11/23. - Start Jakafi 11/23, awaiting study approval - Cont spiriva; albuterol PRN. Continue home advair. Added Azithro 250 3x/weekly Other Tobacco abuse Nicotine patch Iza Gordon NP [phone] Cosigned by Josué Del Valle MD PhD at 11/24/2019 3:[address] RAILWAY LINE INSTALLER ET RAILWAY LINE INSTALLER ET RAILWAY LINE INSTALLER Associated attestation - Josué Del Valle MD PhD - 11/24/2019 3:[address] [employer]WAY LINE INSTALLER I have seen and examined the patient on 11/24/19 in conjunction with the non- physician provider. History: AML Physical Exam: GEN: no acute distress HEENT: no mucositis, anicteric sclera Pulm: clear to ausculation bilaterally CV: rate and rhythm regular ABD: soft, nondistended, nontender, bowel sounds active Skin: no rashes, lesions Ext: No edema Neuro: alert, oriented x 4 Assessment/Plan: cGvHD Pneumonia Josué Del Valle MD PhD * Iza Gordon NP - 11/23/2019 7:59 AM CST BMT Progress Note BMT Day: Chief Complaint: Patient is a 54 y.o. male with chief complaint of shortness of breath. Interval History: Continued shortness of breath at rest and cough, continues on 3L O2.. Otherwise, VSS, afebrile. Glucose 400's this AM and consistently >300 over past several days. Initiated on insulin drip this morning. Active Treatment & Therapy Plans for Robert Bri Bri Jones does not have any active plans of the following types: Oncology Chemotherapy Treatment, Oncology Treatment (2), Oncology Treatment (3), Oncology Supportive Care, Specialty Infusion Treatment, Blood Products, BMT, Hematology Allergies: Allergies Allergen Reactions ??? Adhesive Redness Medications: acyclovir, 400 mg, oral, Q8H atorvastatin, 40 mg, oral, Daily azithromycin, 250 mg, oral, Once per day on Sat cefepime, 2,000 mg, intravenous, Q12H ROSA MARIA ergocalciferol, 50,000 Units, oral, Weekly fluticasone propion-salmeterol, 1 puff, inhalation, BID furosemide, 20 mg, oral, Daily gabapentin, 300 mg, oral, QID guaiFENesin ER, 600 mg, oral, BID heparin flush (porcine), 5 mL, intra-catheter, Q12H ROS AMARIA montelukast, 10 mg, oral, Nightly mycophenolate mofetil, 1,000 mg, oral, BID nicotine, 1 patch, transdermal, Daily ofloxacin, 1 drop, each eye, BID predniSONE, 20 mg, oral, BID rivaroxaban, 20 mg, oral, Daily with dinner ruxolitinib, 5 mg, oral, BID sodium chloride 0.9 %, 30 mL, swish & spit, QID sodium chloride 0.9%, 0.5-20 mL, intra-catheter, Q8H ROSA MARIA sulfamethoxazole-trimethoprim, 160 mg of trimethoprim, oral, 2 times per day on Sat tacrolimus, 0.5 mg, oral, Every other day tiotropium, 1 capsule, inhalation, Daily vancomycin, 1,000 mg, intravenous, Q12H voriCONAZOLE, 200 mg, oral, BID Objective Vitals: 24hr Min/Max: Temp Min: 36.3 ??C (97.3 ??F) Max: 36.8 ??C (98.2 ??F) Pulse Min: 66 Max: 92 BP Min: 126/74 Max: 140/68 Resp Min: 18 Max: 20 SpO2 Min: 91 % Max: 100 % Most Recent : Vitals: 11/22/19 2333 11/23/19 0445 11/23/19 0834 11/23/19 1202 BP: 126/77 126/74 130/75 140/68 BP Location: Left arm Left arm Left arm Left arm Patient Position: Lying Lying Lying Sitting Pulse: 77 66 80 87 Resp: 18 18 18 18 Temp: 36.5 ??C (97.7 ??F) 36.3 ??C (97.3 ??F) 36.4 ??C (97.5 ??F) 36.4 ??C (97.5 ??F) TempSrc: Oral Oral Oral Oral SpO2: 93% 98% 96% 92% Weight: Height: Intake/Output Summary (Last 24 hours) at 11/23/2019 1258 Last data filed at 11/23/2019 1203 Gross per 24 hour Intake 1280 ml Output 3600 ml Net -2320 ml Physical Exam: General appearance: appears stated age Head: Normocephalic, without obvious abnormality Eyes: conjunctivae/corneas clear. PERRL Throat/Mouth: no mucositis or thrush and lips, mucosa, and tongue normal; teeth and gums normal Neck: no adenopathy and no JVD Lungs: +coars to auscultation bilaterally Heart: regular rate and rhythm, S1, S2 normal, no murmur, click, rub or gallop Abdomen: soft, non-tender; bowel sounds normal; no masses, no organomegaly Extremities: No edema, well perfused Pulses: 2+ and symmetric Skin: Skin color, texture, turgor normal. No rashes or lesions Neurologic: Alert and oriented x4, non-focal Lab/Radiology/Diagnostic Review: Laboratory review: I have personally reviewed the following labs: CBC: Recent Labs Lab Units 11/23/19 0307 WBC K/cumm 20.6* HEMOGLOBIN g/dL 12.1* HEMATOCRIT % 36.1* MCV fL 99.7* MCH pg 33.4* MCHC g/dL 33.5 RDW CV % 13.7 RDWSD fL 50.7* MPV fL 11.4 NEUTROS ABS K/cumm 17.5* CMP: Recent Labs Lab Units 11/23/19 1244 11/23/19 0307 SODIUM mmol/L -- -- 131* POTASSIUM PLASMA mmol/L -- -- See Comment CO2 mmol/L -- -- 29 BUN SERUM mg/dL -- -- 29* GLUCOSE mg/dL -- -- 379* POC GLUCOSE MONITOR mg/dL 296* < > -- CREATININE mg/dL -- -- 0.78* CALCIUM mg/dL -- -- 8.7 CHLORIDE mmol/L -- -- 92* ALBUMIN g/dL -- -- 3.2* AST Units/L -- -- See Comment ALT Units/L -- -- See Comment ALK PHOS Units/L -- -- 100 BILIRUBIN TOTAL mg/dL -- -- 0.2 TOTAL PROTEIN g/dL -- -- 6.5 ANIONGAP mmol/L -- -- 10 < > = values in this interval not displayed. LDH: Recent Labs Lab Units 11/23/19 0307 LACTATE DEHYDROGENASE (LDH) Units/L See Comment Uric Acid: Recent Labs Lab Units 11/23/19 0307 URIC ACID mg/dL 4.6 Tacrolimus level: Recent Labs Lab Units 11/20/19 0929 TACRO RANDOM ng/mL <1.0 Sirolimus level: Cyclosporine level: PT: Recent Labs Lab Units 11/23/19 0307 PROTIME (PT) sec 17.4* PTT: Recent Labs Lab Units 11/23/19 0307 APTT sec 29 Radiology: CT Chest W Contrast Final Result 1. Scattered tree-in-bud and nodular opacities throughout both lungs suggestive of an acute infectious process. Thickened and debris-filled bronchi which are focally worse in the left lower lobe may indicate superimposed aspiration pneumonitis. Recommend follow-up noncontrast chest CT after the onset of appropriate medical therapy to document resolution. 2. Moderate to severe centrilobular emphysema. Electronically signed by: Bri Collins D.O. X-ray chest 1 view (Portable) Final Result Comparison to 08/22/2019. Redemonstrated are bilateral emphysematous changes with mild bibasilar atelectasis. The lungs are otherwise clear without focal consolidation or pulmonary edema. No definite pleural effusion or pneumothorax. Heart size and mediastinal contour are unchanged. Dictated by: Elsi Sweet M.D. The radiology attending physician has personally reviewed this study, and had reviewed and/or edited this written report and agrees with it. Electronically signed by: Candice Lara M.D. Transthoracic Echo Complete W Doppler/CF (Results Pending) Lab Results Component Value Date MICROBIOLOGY (.) 11/21/2019 Preliminary Report: Greater than or equal to 100,000 colonies/ml of Streptococcus pneumoniae Presumptive identification. Susceptibility testing results to follow. Plus growth of clinically insignificant bacterial oscar. MICROBIOLOGY Preliminary Report: No growth of fungus to date 11/20/2019 MICROBIOLOGY Preliminary Report: No growth to date. 11/20/2019 MICROBIOLOGY Preliminary Report: No growth to date. 11/20/2019 MICROBIOLOGY Final Report: No growth 08/22/2019 MICROBIOLOGY Final Report: No growth 08/22/2019 MICROBIOLOGY 11/22/2018 Final Report: Respiratory Pathogen nucleic acids NOT DETECTED (NEGATIVE) MICROBIOLOGY Final Report: No growth 11/22/2018 MICROBIOLOGY Final Report: No growth 11/22/2018 MICROBIOLOGY Final Report: No growth 12/18/2017 Assessment/Plan Nervous Peripheral neuropathy Continue gabapentin Respiratory Shortness of breath Concern for poss GVHD and/or poss COPD exacerbation, HF, infection. Recently discharged from OSH with 2-3L O2 - Recently admitted to OSH with similar symptoms, discharged on pred taper. Now with increased O2 requirement, increased MILLER. - TTE (09/2019) EF 55%. - RVP neg. Check Bld Cx - Rpt TTE, check chest CT, ordered PFT - CT chest 11/20/19: Scattered tree-in-bud and nodular opacities throughout both lungs suggestive of an acute infectious process. ??Thickened and debris-filled bronchi which are focally worse in the left lower lobe may indicate superimposed aspiration pneumonitis. - Sputum cx 11/21: strep pneumoniae, susceptibilities pending - On Cefe/Vanc (11/20 - ) - See GVHD problem. - Pulm toilet?? COPD, severe ([facility]) Continue inhalers Circulatory CHF (congestive heart failure) ([facility]) With diastolic dysfunction, new diagnosis. -Continue Lasix. Rpt TTE DVT (deep venous thrombosis) ([facility]) Continue xarelto Musculoskeletal Osteopenia Continue home vitamin D and dietary calcium Endocrine/Metabolic Pure hypercholesterolemia Continue statin Type 2 diabetes mellitus ([facility]) On basaglar 30 units AM and novolog 10 units TID with meals and SSI at home. No longer taking metformin at home - BG >400 on admit (pt stated he did not take his AM insulin). - Insulin gtt started 11/23. Endocrine consulted. - Hgb A1C 13 on admit. Hematologic AML (acute myeloid leukemia) in remission ([facility]/H[facility]) -??Induction with 7+3 and HiDAC consolidation x3??s/p decitabine maintenance on the CALGB 56782 protocol. -??Relapsed disease,??status post an allogeneic transplant with busulfan and Cytoxan on the AMD allogeneic study with his sister, 08/27 match; with day 0 on 11/09/2009.?? - Currently in remission. Follows with Dr. Del Valle - On tacro, cellcept - OI ppx: Cont acyclovir. Add vori given remains on immunosuppressives. Add bactrim (pt stated he was no longer taking). Immune Rdbaz-zmpyni-vxax disease (CMS/HCC) Continue cellcept 1 g BID and tacrolimus??0.5 every other day. Last PFT with FEV1 50% in 12/2017 -??on prednisone 60 bid at admission (pred taper), continue dose for now - cont eye drops - Taper pred --> 20 bid on 11/23. Start Jakafi 11/23, requested study approval - Cont spiriva; albuterol PRN. Continue home advair. Added Azithro 250 3x/weekly Other Tobacco abuse Nicotine patch Iza Gordon NP [phone] Cosigned by Josué Del Valle MD PhD at 11/23/2019 7:[address] RA[employer] LINE INSTALLER ET RAILWAY LINE INSTALLER ET RAILWAY LINE INSTALLER Associated attestation - Josué Del Valle MD PhD - 11/23/2019 7:[address] [employer]AY LINE INSTALLER I have seen and examined the patient on 11/23/19 in conjunction with the non- physician provider. History: cGvHD and AML Physical Exam: GEN: no acute distress HEENT: no mucositis, anicteric sclera Pulm: clear to ausculation bilaterally CV: rate and rhythm regular ABD: soft, nondistended, nontender, bowel sounds active Skin: no rashes, lesions Ext: No edema Neuro: alert, oriented x 4 Assessment/Plan: Resolving pneumonia Josué Del Valle MD PhD * Josué Del Valle MD PhD - 11/22/2019 2:04 PM CST BMT Progress Note BMT Day: Chief Complaint: Patient is a 54 y.o. male with chief complaint of shortness of breath. Subjective On 3 L NC today. Hyperglycemic with BG 400s. NPH added bid with steroid dosing. Improving. Will need some diuresis as well. Active Treatment & Therapy Plans for Bri Jones Robert does not have any active plans of the following types: Oncology Chemotherapy Treatment, Oncology Treatment (2), Oncology Treatment (3), Oncology Supportive Care, Specialty Infusion Treatment, Blood Products, BMT, Hematology Allergies Allergen Reactions ??? Adhesive Redness Current Facility-Administered Medications: ??? acetaminophen (TYLENOL) tablet 650 mg, 650 mg, oral, Q4H PRN, Iza Gordon NP ??? acetaminophen (TYLENOL) tablet 650 mg, 650 mg, oral, Q6H PRN, Iza Gordon NP ??? acyclovir (ZOVIRAX) tablet 400 mg, 400 mg, oral, Q8H, Iza Gordon NP, 400 mg at 11/22/19 0913 ??? albuterol 2.5 mg /3 mL (0.083 %) nebulizer solution 2.5 mg, 2.5 mg, nebulization, Once PRN, Iza Gordon NP ??? albuterol HFA (PROVENTIL HFA,VENTOLIN HFA,PROAIR HFA) 90 mcg/actuation inhaler 2 puff, 2 puff, inhalation, Q4H PRN (RT), Iza Gordon, ARMEN ? ? aluminum & magnesium zxjuouopr-mlwvlavpmlc-qfpuygsqtpiqzpa-lidocaine (MAGIC MOUTHWASH) suspension 1-1-1, 15 mL, swish & swallow, QID PRN, Iza Gordon NP ??? atorvastatin (LIPITOR) tablet 40 mg, 40 mg, oral, Daily, Iza Gordon NP, 40 mg at11/22/19 0913 ??? azithromycin (ZITHROMAX) tablet 250 mg, 250 mg, oral, Once per day on Sat, Iza Gordon NP, 250 mg at 11/20/19 1635 ??? bacitracin-polymyxin B (POLYSPORIN) 500-10,000 unit/gram ointment tube 1 application, 1 application, topical, Q4H PRN, Iza Gordon NP ??? camphor-menthol (SARNA) 0.5-0.5 % lotion, , topical, Q2H PRN, Iza Adriana Cincoski, FUR TRIMMER ??? cefepime (MAXIPIME) 2,000 mg/20 mL in sterile water (premix) 2,000 mg, 2,000 mg, intravenous, Q12H ROSA MARIA, Fer Tesfaye MD, Stopped at 11/22/19 0624 ??? dextrose (GLUTOSE) 40 % gel 15 g, 15 g, oral, Q15 Min PRN OR dextrose (D10W) 10% bolus 250 mL, 250 mL, intravenous, Q15 Min PRN, Lizzette Grijalva MD ??? dextrose (GLUTOSE) 40 % gel 15 g, 15 g, oral, Q15 Min PRN OR dextrose (D10W) 10% bolus 250 mL, 250 mL, intravenous, Q15 Min PRN, Michael Stevenson, ARMEN ??? diphenhydrAMINE (BENADRYL) tab/cap 25 mg, 25 mg, oral, Nightly PRN, Colton Cason MD PhD, 25 mg at 11/22/19 0100 ??? ergocalciferol (VITAMIN D) capsule 50,000 Units, 50,000 Units, oral, Weekly, Iza Gordon, ARMEN ??? fluticasone propion-salmeterol (ADVAIR DISKUS) 100-50 mcg/dose diskus inhaler 1 puff, 1 puff, inhalation, BID, Josué Del Valle MD PhD, 1 puff at 11/22/19 0915 ??? furosemide (LASIX) tablet 20 mg, 20 mg, oral, Daily, Iza Gordon NP, 20 mg at 11/22/19 0914 ??? gabapentin (NEURONTIN) capsule 300 mg, 300 mg, oral, QID, Iza Gordon NP, 300 mg at 11/22/19 0800 ??? glucagon injection 1 mg, 1 mg, intramuscular, Q30 Min PRN, Lizzette Grijalva MD ??? heparin 10 unit/mL flush 20-50 Units, 2-5 mL, intra-catheter, PRN, Iza Gordon NP ??? heparin 10 unit/mL flush 50 Units, 5 mL, intra-catheter, Q12H ROSA MARIA, Iza Gordon NP, 50 Units at 11/22/19 0915 ??? insulin glargine (LANTUS) injection 30 Units, 30 Units, subcutaneous, QAM, Iza Gordon NP, 30 Units at 11/22/19 0914 ??? insulin lispro (HumaLOG) injection 1-4 Units, 1-4 Units, subcutaneous, Nightly, Iza Nugent NP, 3 Units at 11/20/192011 ??? insulin lispro (HumaLOG) injection 1-7 Units, 1-7 Units, subcutaneous, TID with meals, Dayana Gordon NP, 7 Units at 11/22/19 1234 ??? insulin lispro (HumaLOG) injection 12 Units, 12 Units, subcutaneous, TID with meals, Lizzette Grijalva MD, 12 Units at 11/22/19 1234 ??? insulin NPH (HumuLIN N, NovoLIN N) injection 15 Units, 15 Units, subcutaneous, BID, Michael Setvenson NP, 15 Units at 11/22/19 0914 ??? loperamide (IMODIUM) capsule 2 mg, 2 mg, oral, Q1H PRN, Iza Gordon NP ??? magnesium sulfate 4 g/100 mL in water (premix) 4 g, 4 g, intravenous, Q4H PRN, Iza Gordon NP ??? magnesium sulfate 6 g in sodium chloride 0.9% 250 mL IVPB, 6 g, intravenous, Q4H PRN, Iza Gordon NP ??? montelukast (SINGULAIR) tablet 10 mg, 10 mg, oral, Nightly, Iza Gordon NP, 10 mgat 11/21/192142 ??? mycophenolate mofetil (CELLCEPT) tablet 1,000 mg, 1,000 mg, oral, BID, Iza Gordon NP, 1,000 mg at 11/22/19 0913 ??? nicotine (NICODERM CQ) 21 mg patch 24 hour 1 patch, 1 patch, transdermal, Daily, Iza Gordon NP, Last Rate: 0 mL/hr at 11/22/19 0850, 1 patch at 11/22/19 0914 ??? ofloxacin (OCUFLOX) 0.3 % ophthalmic solution 1 drop, 1 drop, each eye, BID, Iza Gordon NP, 1 drop at 11/22/19 0756 ??? oxyCODONE (ROXICODONE) tablet 5 mg, 5 mg, oral, QID PRN, Fer Tesfaye MD, 5 mg at 11/22/19 0025 ??? polyvinyl alcohol (LIQUIFILM TEARS) 1.4 % ophthalmic solution 2 drop, 2 drop, each eye, Q4H PRN, Iza Gordon NP ??? potassium chloride 40 mEq/520 mL in sodium chloride 0.9% (premix) 40 mEq, 40 mEq, intravenous, Q4H PRN, Iza Gordon NP ??? potassium chloride ER (KLOR-CON) extended release tablet 40 mEq, 40 mEq, oral, Q4H PRN, Iza Gordon NP ??? pramoxine-zinc oxide (TRONOLANE) 1-5 % rectal cream, , rectal, TID PRN, Iza Gordon NP ??? predniSONE (DELTASONE) tablet 40 mg, 40 mg, oral, BID, Iza Gordon NP, 40 mg at 11/22/19 0914 ??? rivaroxaban (XARELTO) tablet 20 mg, 20 mg, oral, Daily with dinner, Iza Gordon NP, 20 mg at 11/21/19 1740 ??? sodium chloride (OCEAN) 0.65 % nasal spray 2 spray, 2 spray, each nostril, Q1H PRN, Iza Gordon, FUR TRIMMER ? ? sodium chloride 0.9 % irrigation 30 mL, 30 mL, swish & spit, QID, Iza Gordon NP, 30 mL at 11/22/19 0757 ??? sodium chloride 0.9% flush 0.5-20 mL, 0.5-20 mL, intra-catheter, Q8H ROSA MARIA, Iza Gordon NP, 10 mL at 11/22/19 0915 ??? sodium chloride 0.9% flush 0.5-20 mL, 0.5-20 mL, intra-catheter, PRN, Iza Gordon NP, 10 mL at 11/21/19 0906 ??? sodium chloride 0.9% infusion, 30 mL/hr, intravenous, Continuous PRN, Iza Gordon NP, Last Rate: 30 mL/hr at 11/21/19 0600, 30 mL/hr at 11/21/19 0600 ??? sodium chloride 0.9% IVPB 0-250 mL, 0-250 mL, intravenous, PRN, Iza Gordon NP ??? [START ON 11/23/2019] sulfamethoxazole-trimethoprim (BACTRIM DS) 800-160 mg per tablet 160 mg of trimethoprim, 160 mg of trimethoprim, oral, 2 times per day on Sat Angy, Iza Gordon NP ??? tacrolimus (PROGRAF) capsule 0.5 mg, 0.5 mg, oral, Every other day, Iza Gordon NP, 0.5 mg at 11/22/19 0913 ??? tiotropium (SPIRIVA) 18 mcg per inhalation capsule 1 capsule, 1 capsule, inhalation, Daily, Josué Del Valle MD PhD ??? vancomycin 1,250 mg/262.5 mL in sodium chloride 0.9% (premix) 1,250 mg, 15 mg/kg, intravenous, Q12H, Colton Cason MD PhD, Stopped at 11/22/19 1030 ??? voriCONAZOLE (VFEND) tablet 200 mg, 200 mg, oral, BID, Iza Gordon NP, 200 mg at 11/22/19 0913 ??? white petrolatum-mineral oil (EUCERIN) cream, , topical, Q2H PRN, Iza Adriana Cincoski, FUR TRIMMER Objective Vitals: 24hr Min/Max: Temp Min: 36.2 ??C (97.2 ??F) Max: 37.1 ??C (98.8 ??F) Pulse Min: 71 Max: 88 BP Min: 111/61 Max: 156/92 Resp Min: 16 Max: 20 SpO2 Min: 90 % Max: 97 % Most Recent : Vitals: 11/22/19 1202 BP: 118/67 BP Location: Right arm Patient Position: Lying Pulse: 82 Resp: 16 Temp: 36.4 ??C (97.5 ??F) TempSrc: Oral SpO2: 94% Weight: ICE Score: No data found. Baseline ICE Score: CRS and ICANS Grading: No data found. I/O last 2 completed shifts: In: 2317.5 [P.O.:1920; I.V.:115; IV Piggyback:282.5] Out: 2900 [Urine:2900] Physical exam: General appearance: No distress, cooperative. Neurologic: Alert and oriented x4, non-focal Throat/Mouth: no mucositis or thrush Heart: regular rate and rhythm, S1, S2 normal, no murmur, click, rub or gallop Lungs: Clear to auscultation bilaterally. No crackles or wheezing. Abdomen: soft, non-tender; bowel sounds normal; no masses, no organomegaly Extremities: No edema, well perfused Skin: Intact. No rashes or lesions. Lab/Radiology/Diagnostic Review: Laboratory review: Lab results in the last 12 hours: Recent Results (from the past 12 hour(s)) POCT glucose Collection Time: 11/22/19 5:06 AM Result Value Ref Range Glucose, POC 328 (H) 70 - 199 mg/dL Magnesium Collection Time: 11/22/19 5:45 AM Result Value Ref Range Magnesium 1.8 1.4 - 2.5 mg/dL Phosphorus Collection Time: 11/22/19 5:45 AM Result Value Ref Range Phosphorus, pl 3.7 2.3 - 4.5 mg/dL Basic metabolic panel Collection Time: 11/22/19 5:45 AM Result Value Ref Range Sodium 131 (L) 135 - 145 mmol/L Potassium, pl 5.5 (H) 3.3 - 4.9 mmol/L Chloride 94 (L) 97 - 110 mmol/L CO2 29 22 - 32 mmol/L Anion gap 8 2 - 15 mmol/L BUN 25 8 - 25 mg/dL Creatinine 0.83 0.80 - 1.30 mg/dL Glucose 417 (H) 70 - 199 mg/dL Calcium 9.2 8.5 - 10.3 mg/dL CBC without differential Collection Time: 11/22/19 5:45 AM Result Value Ref Range WBC 13.6 (H) 3.8 - 9.9 K/cumm Hgb 13.4 13.0 - 17.5 g/dL Hct 40.1 38.9 - 50.3 % Plt 286 150 - 400 K/cumm MPV 11.5 9.1 - 12.3 fL RBC 4.00 (L) 4.30 - 5.80 M/cumm MCV 100.3 (H) 81.3 - 96.4 fL MCH 33.5 (H) 27.1 - 33.3 pg MCHC 33.4 32.3 - 35.7 g/dL RDW CV 13.5 11.1 - 14.9 % RDW SD 49.5 (H) 35.7 - 48.1 fL NRBC abs 0.64 (H) 0.00 - 0.01 K/cumm Manual Differential Collection Time: 11/22/19 5:45 AM Result Value Ref Range Differential Manual Cells Counted 115 Neutrophil abs 11.9 (H) 1.7 - 6.5 K/cumm Imm gran abs 0.2 (H) 0.0 - 0.1 K/cumm Lymphocyte abs 1.2 0.8 - 3.3 K/cumm Monocyte abs 0.1 (L) 0.2 - 0.8 K/cumm Basophil abs 0.1 0.0 - 0.1 K/cumm Neutrophil pct 87.7 % Lymphocyte pct 7.8 % Monocyte pct 0.9 % Basophil pct 0.9 % Myelocytes 0.9 % Promyelocyte 0.9 (H) 0.0 - 0.0 % Variant lymphs 0.9 (H) 0.0 - 0.0 % RBC morphology Normal Platelet estimate Adequate POCT glucose Collection Time: 11/22/19 6:53 AM Result Value Ref Range Glucose, POC 432 (H) 70 - 199 mg/dL POCT glucose Collection Time: 11/22/19 7:50 AM Result Value Ref Range Glucose, POC 270 (H) 70 - 199 mg/dL Vancomycin, trough Draw trough 30 minutes prior to 4th dose. Collection Time: 11/22/19 9:24 AM Result Value Ref Range Vancomycin, trough 21.3 (Critical) 10.0 - 20.9 mcg/mL Critical Result Callback Chemistry Collection Time: 11/22/19 9:24 AM Result Value Ref Range Date Notified [id number] Time Notified 1024 TestName odilia ann Called/Read Back marleny Vallejoentials RN Called By POCT glucose Collection Time: 11/22/19 12:03 PM Result Value Ref Range Glucose, POC 409 (H) 70 - 199 mg/dL CBC: Recent Labs Lab Units 11/22/19 0545 WBC K/cumm 13.6* HEMOGLOBIN g/dL 13.4 HEMATOCRIT % 40.1 MCV fL 100.3* PLATELETS K/cumm 286 MCH pg 33.5* MCHC g/dL 33.4 RDW CV % 13.5 RDWSD fL 49.5* MPV fL 11.5 NEUTROS ABS K/cumm 11.9* CMP: Recent Labs Lab Units 11/22/19 1203 11/22/19 0545 11/20/19 0929 SODIUM mmol/L -- -- 131* < > 138 POTASSIUM PLASMA mmol/L -- -- 5.5* < > 3.9 CO2 mmol/L -- -- 29 < > 35* BUN SERUM mg/dL -- -- 25 < > 15 GLUCOSE mg/dL -- -- 417* < > 402* POC GLUCOSE MONITOR mg/dL 409* < > -- < > -- CREATININE mg/dL -- -- 0.83 < > 0.74* CALCIUM mg/dL -- -- 9.2 < > 9.4 CHLORIDE mmol/L -- -- 94* < > 97 ALBUMIN g/dL -- -- -- -- 3.7 AST Units/L -- -- -- -- 18 ALT Units/L -- -- -- -- 30 ALK PHOS Units/L -- -- -- -- 118 BILIRUBIN TOTAL mg/dL -- -- -- -- 0.3 TOTAL PROTEIN g/dL -- -- -- -- 7.0 ANIONGAP mmol/L -- -- 8 < > 6 < > = values in this interval not displayed. LDH: Recent Labs Lab Units 11/20/19 0929 LACTATE DEHYDROGENASE (LDH) Units/L 428* Uric Acid: Recent Labs Lab Units 11/20/19 0929 URIC ACID mg/dL 5.2 Tacrolimus level: Recent Labs Lab Units 11/20/19 0929 TACRO RANDOM ng/mL <1.0 Sirolimus level: Cyclosporine level: PT: Recent Labs Lab Units 11/20/19 1235 PROTIME (PT) sec 10.3 PTT: Recent Labs Lab Units 11/20/19 1235 APTT sec 25 Assessment/Plan Tobacco abuse Assessment & Plan Nicotine patch Peripheral neuropathy Assessment & Plan Continue gabapentin CHF (congestive heart failure) ([facility]) Assessment & Plan With diastolic dysfunction, new diagnosis. -Continue Lasix. Rpt TTE Shortness of breath Assessment & Plan Concern for poss GVHD and/or poss COPD exacerbation, HF. Recently discharged from OSH with 2L O2 - Recently admitted to OSH with similar symptoms, discharged on pred taper. Now with increased O2 requirement, increased MILLER. - TTE (09/2019) EF 55%. - RVP neg. Check Bld Cx - Rpt TTE, check chest CT, ordered PFT - See GVHD problem. - Pulm toilet?? DVT (deep venous thrombosis) ([facility]) Assessment & Plan Continue xarelto COPD, severe ([facility]) Assessment & Plan Continue inhalers Pure hypercholesterolemia Assessment & Plan Continue statin Type 2 diabetes mellitus ([facility]) Assessment & Plan On basaglar 30 units AM and novolog 10 units TID with meals and SSI at home. No longer taking metformin at home - BG >400 on admit (pt stated he did not take his AM insulin). - Cont 30U Lantus, given steroid use and difficulty controlling glucose at home and in past hospitalizations. HD SSI. May need to add meal-time insulin based on glucose. - Hgb A1C 13 on admit. AML (acute myeloid leukemia) in remission ([facility]) Assessment & Plan -??Induction with 7+3 and HiDAC consolidation x3??s/p decitabine maintenance on the CALGB 00897 protocol. -??Relapsed disease,??status post an allogeneic transplant with busulfan and Cytoxan on the AMD allogeneic study with his sister, 08/27 match; with day 0 on 11/09/2009.?? - Currently in remission. Follows with Dr. Del Valle - On tacro, cellcept - OI ppx: Cont acyclovir. Add vori given remains on immunosuppressives. Add bactrim (pt stated he was no longer taking). Mynld-[id number]-ugcw disease (CMS/HCC) Assessment & Plan Continue cellcept 1 g BID and tacrolimus??0.5 every other day. -??on prednisone 60 bid at admission (pred taper), continue dose for now - cont eye drops - Cont Pred 60 bid. Sent prior-auth to 7th floor pharm to check insurance approval for [place]. Discussed possible EAP with customer services coordinator if not approved. - Cont spiriva; albuterol PRN. Continue home advair. Added Azithro 250 3x/weekly Osteopenia Assessment & Plan Continue home vitamin D and dietary calcium Josué Del Valle MD, PhD ET RAILWAY LINE INSTALLER * Michael Stevenson NP - 11/22/2019 12:40 PM CST BMT Progress Note BMT Day: Chief Complaint: Patient is a 54 y.o. male with chief complaint of shortness of breath. Subjective On 3 L NC today. Hyperglycemic with BG 400s. NPH added bid with steroid dosing. Active Treatment & Therapy Plans for Bri Jones Robert does not have any active plans of the following types: Oncology Chemotherapy Treatment, Oncology Treatment (2), Oncology Treatment (3), Oncology Supportive Care, Specialty Infusion Treatment, Blood Products, BMT, Hematology Allergies Allergen Reactions ??? Adhesive Redness Current Facility-Administered Medications: ??? acetaminophen (TYLENOL) tablet 650 mg, 650 mg, oral, Q4H PRN, Iza Gordon, FUR TRIMMER ??? acetaminophen (TYLENOL) tablet 650 mg, 650 mg, oral, Q6H PRN, Iza Gordon, FUR TRIMMER ??? acyclovir (ZOVIRAX) tablet 400 mg, 400 mg, oral, Q8H, Iza Gordon, FUR TRIMMER, 400 mg at 11/22/19 0913 ??? albuterol 2.5 mg /3 mL (0.083 %) nebulizer solution 2.5 mg, 2.5 mg, nebulization, Once PRN, Iza Gordon NP ??? albuterol HFA (PROVENTIL HFA,VENTOLIN HFA,PROAIR HFA) 90 mcg/actuation inhaler 2 puff, 2 puff, inhalation, Q4H PRN (RT), Iza Gordon, ARMEN ? ? aluminum & magnesium zznrntmar-ntpxfgqtmon-agkfvywqdlfmugf-lidocaine (MAGIC MOUTHWASH) suspension 1-1-1, 15 mL, swish & swallow, QID PRN, Iza Gordon, ARMEN ??? atorvastatin (LIPITOR) tablet 40 mg, 40 mg, oral, Daily, Iza Gordon NP, 40 mg at11/22/19 0913 ??? azithromycin (ZITHROMAX) tablet 250 mg, 250 mg, oral, Once per day on Sat, Iza Gordon NP, 250 mg at 11/20/19 1635 ??? bacitracin-polymyxin B (POLYSPORIN) 500-10,000 unit/gram ointment tube 1 application, 1 application, topical, Q4H PRN, Iza Gordon NP ??? camphor-menthol (SARNA) 0.5-0.5 % lotion, , topical, Q2H PRN, Iza Gordon NP ??? cefepime (MAXIPIME) 2,000 mg/20 mL in sterile water (premix) 2,000 mg, 2,000 mg, intravenous, Q12H ROSA MARIA, Fer Tesfaye MD, Stopped at 11/22/19 0624 ??? dextrose (GLUTOSE) 40 % gel 15 g, 15 g, oral, Q15 Min PRN OR dextrose (D10W) 10% bolus 250 mL, 250 mL, intravenous, Q15 Min PRN, Lizzette Grijalva MD ??? dextrose (GLUTOSE) 40 % gel 15 g, 15 g, oral, Q15 Min PRN OR dextrose (D10W) 10% bolus 250 mL, 250 mL, intravenous, Q15 Min PRN, Michael Stevenson NP ??? diphenhydrAMINE (BENADRYL) tab/cap 25 mg, 25 mg, oral, Nightly PRN, Colton Cason MD PhD, 25 mg at 11/22/19 0100 ??? ergocalciferol (VITAMIN D) capsule 50,000 Units, 50,000 Units, oral, Weekly, Iza Gordon NP ??? fluticasone propion-salmeterol (ADVAIR DISKUS) 100-50 mcg/dose diskus inhaler 1 puff, 1 puff, inhalation, BID, Josué Del Valle MD PhD, 1 puff at 11/22/19 09 ??? furosemide (LASIX) tablet 20 mg, 20 mg, oral, Daily, Iza Gordon, ARMEN, 20 mg at 11/22/19 0914 ??? gabapentin (NEURONTIN) capsule 300 mg, 300 mg, oral, QID, Iza Gordon, ARMEN, 300 mg at 11/22/19 0800 ??? glucagon injection 1 mg, 1 mg, intramuscular, Q30 Min PRN, Lizzette Grijalva MD ??? heparin 10 unit/mL flush 20-50 Units, 2-5 mL, intra-catheter, PRN, Iza Gordon NP ??? heparin 10 unit/mL flush 50 Units, 5 mL, intra-catheter, Q12H ROSA MARIA, Iza Gordon NP, 50 Units at 11/22/19 0915 ??? insulin glargine (LANTUS) injection 30 Units, 30 Units, subcutaneous, QAM, Iza Gordon NP, 30 Units at 11/22/19 0914 ??? insulin lispro (HumaLOG) injection 1-4 Units, 1-4 Units, subcutaneous, Nightly, Iza Nugent NP, 3 Units at 11/20/192011 ??? insulin lispro (HumaLOG) injection 1-7 Units, 1-7 Units, subcutaneous, TID with meals, Dayana Gordon NP, 7 Units at 11/22/19 1234 ??? insulin lispro (HumaLOG) injection 12 Units, 12 Units, subcutaneous, TID with meals, Lizzette Grijalva MD, 12 Units at 11/22/19 1234 ??? insulin NPH (HumuLIN N, NovoLIN N) injection 15 Units, 15 Units, subcutaneous, BID, Michael Stevenson NP, 15 Units at 11/22/19 0914 ??? loperamide (IMODIUM) capsule 2 mg, 2 mg, oral, Q1H PRN, Iza Gordon NP ??? magnesium sulfate 4 g/100 mL in water (premix) 4 g, 4 g, intravenous, Q4H PRN, Iza Gordon NP ??? magnesium sulfate 6 g in sodium chloride 0.9% 250 mL IVPB, 6 g, intravenous, Q4H PRN, Iza Gordon NP ??? montelukast (SINGULAIR) tablet 10 mg, 10 mg, oral, Nightly, Iza Gordon NP, 10 mgat 11/21/19 2143 ??? mycophenolate mofetil (CELLCEPT) tablet 1,000 mg, 1,000 mg, oral, BID, Iza Gordon NP, 1,000 mg at 11/22/19 0913 ??? nicotine (NICODERM CQ) 21 mg patch 24 hour 1 patch, 1 patch, transdermal, Daily, Iza Gordon NP, Last Rate: 0 mL/hr at 11/22/19 0850, 1 patch at 11/22/19 0914 ??? ofloxacin (OCUFLOX) 0.3 % ophthalmic solution 1 drop, 1 drop, each eye, BID, Iza Gordon NP, 1 drop at 11/22/19 0756 ??? oxyCODONE (ROXICODONE) tablet 5 mg, 5 mg, oral, QID PRN, Fer Tesfaye MD, 5 mg at 11/22/19 0025 ??? polyvinyl alcohol (LIQUIFILM TEARS) 1.4 % ophthalmic solution 2 drop, 2 drop, each eye, Q4H PRN, Iza Lillyi, FUR TRIMMER ??? potassium chloride 40 mEq/520 mL in sodium chloride 0.9% (premix) 40 mEq, 40 mEq, intravenous, Q4H PRN, Iza Lillyi, FUR TRIMMER ??? potassium chloride ER (KLOR-CON) extended release tablet 40 mEq, 40 mEq, oral, Q4H PRN, Iza Lillyi, FUR TRIMMER ??? pramoxine-zinc oxide (TRONOLANE) 1-5 % rectal cream, , rectal, TID PRN, Iza Gordon, FUR TRIMMER ??? predniSONE (DELTASONE) tablet 40 mg, 40 mg, oral, BID, Iza Gordon, FUR TRIMMER, 40 mg at 11/22/19 0914 ??? rivaroxaban (XARELTO) tablet 20 mg, 20 mg, oral, Daily with dinner, Iza Gordon, FUR TRIMMER, 20 mg at 11/21/19 1740 ??? sodium chloride (OCEAN) 0.65 % nasal spray 2 spray, 2 spray, each nostril, Q1H PRN, Iza Gordon, FUR TRIMMER ? ? sodium chloride 0.9 % irrigation 30 mL, 30 mL, swish & spit, QID, Iza Gordon,FUR TRIMMER, 30 mL at 11/22/19 0757 ??? sodium chloride 0.9% flush 0.5-20 mL, 0.5-20 mL, intra-catheter, Q8H ROSA MARIA, Iza Gordon, FUR TRIMMER, 10 mL at 11/22/19 0915 ??? sodium chloride 0.9% flush 0.5-20 mL, 0.5-20 mL, intra-catheter, PRN, Iza Gordon,FUR TRIMMER, 10 mL at 11/21/19 0906 ??? sodium chloride 0.9% infusion, 30 mL/hr, intravenous, Continuous PRN, Iza GordonFUR TRIMMER, Last Rate: 30 mL/hr at 11/21/19 0600, 30 mL/hr at 11/21/19 0600 ??? sodium chloride 0.9% IVPB 0-250 mL, 0-250 mL, intravenous, PRN, Iza Gordon NP ??? [START ON 11/23/2019] sulfamethoxazole-trimethoprim (BACTRIM DS) 800-160 mg per tablet 160 mg of trimethoprim, 160 mg of trimethoprim, oral, 2 times per day on Sat Angy, Iza Gordon NP ??? tacrolimus (PROGRAF) capsule 0.5 mg, 0.5 mg, oral, Every other day, Iza Gordon NP, 0.5 mg at 11/22/19 0913 ??? tiotropium (SPIRIVA) 18 mcg per inhalation capsule 1 capsule, 1 capsule, inhalation, Daily, Josué Del Valle MD PhD ??? vancomycin 1,250 mg/262.5 mL in sodium chloride 0.9% (premix) 1,250 mg, 15 mg/kg, intravenous, Q12H, Colton Cason MD PhD, Stopped at 11/22/19 1030 ??? voriCONAZOLE (VFEND) tablet 200 mg, 200 mg, oral, BID, Iza Gordon NP, 200 mg at 11/22/19 09 ??? white petrolatum-mineral oil (EUCERIN) cream, , topical, Q2H PRN, Iza Gordon NP Objective Vitals: 24hr Min/Max: Temp Min: 36.2 ??C (97.2 ??F) Max: 37.1 ??C (98.8 ??F) Pulse Min: 71 Max: 88 BP Min: 111/61 Max: 156/92 Resp Min: 16 Max: 20 SpO2 Min: 90 % Max: 97 % Most Recent : Vitals: 11/22/19 1202 BP: 118/67 BP Location: Right arm Patient Position: Lying Pulse: 82 Resp: 16 Temp: 36.4 ??C (97.5 ??F) TempSrc: Oral SpO2: 94% Weight: ICE Score: No data found. Baseline ICE Score: CRS and ICANS Grading: No data found. I/O last 2 completed shifts: In: 2317.5 [P.O.:1920; I.V.:115; IV Piggyback:282.5] Out: 2900 [Urine:2900] Physical exam: General appearance: No distress, cooperative. Neurologic: Alert and oriented x4, non-focal Throat/Mouth: no mucositis or thrush Heart: regular rate and rhythm, S1, S2 normal, no murmur, click, rub or gallop Lungs: Clear to auscultation bilaterally. No crackles or wheezing. Abdomen: soft, non-tender; bowel sounds normal; no masses, no organomegaly Extremities: No edema, well perfused Skin: Intact. No rashes or lesions. Lab/Radiology/Diagnostic Review: Laboratory review: Lab results in the last 12 hours: Recent Results (from the past 12 hour(s)) POCT glucose Collection Time: 11/22/19 5:06 AM Result Value Ref Range Glucose, POC 328 (H) 70 - 199 mg/dL Magnesium Collection Time: 11/22/19 5:45 AM Result Value Ref Range Magnesium 1.8 1.4 - 2.5 mg/dL Phosphorus Collection Time: 11/22/19 5:45 AM Result Value Ref Range Phosphorus, pl 3.7 2.3 - 4.5 mg/dL Basic metabolic panel Collection Time: 11/22/19 5:45 AM Result Value Ref Range Sodium 131 (L) 135 - 145 mmol/L Potassium, pl 5.5 (H) 3.3 - 4.9 mmol/L Chloride 94 (L) 97 - 110 mmol/L CO2 29 22 - 32 mmol/L Anion gap 8 2 - 15 mmol/L BUN 25 8 - 25 mg/dL Creatinine 0.83 0.80 - 1.30 mg/dL Glucose 417 (H) 70 - 199 mg/dL Calcium 9.2 8.5 - 10.3 mg/dL CBC without differential Collection Time: 11/22/19 5:45 AM Result Value Ref Range WBC 13.6 (H) 3.8 - 9.9 K/cumm Hgb 13.4 13.0 - 17.5 g/dL Hct 40.1 38.9 - 50.3 % Plt 286 150 - 400 K/cumm MPV 11.5 9.1 - 12.3 fL RBC 4.00 (L) 4.30 - 5.80 M/cumm MCV 100.3 (H) 81.3 - 96.4 fL MCH 33.5 (H) 27.1 - 33.3 pg MCHC 33.4 32.3 - 35.7 g/dL RDW CV 13.5 11.1 - 14.9 % RDW SD 49.5 (H) 35.7 - 48.1 fL NRBC abs 0.64 (H) 0.00 - 0.01 K/cumm Manual Differential Collection Time: 11/22/19 5:45 AM Result Value Ref Range Differential Manual Cells Counted 115 Neutrophil abs 11.9 (H) 1.7 - 6.5 K/cumm Imm gran abs 0.2 (H) 0.0 - 0.1 K/cumm Lymphocyte abs 1.2 0.8 - 3.3 K/cumm Monocyte abs 0.1 (L) 0.2 - 0.8 K/cumm Basophil abs 0.1 0.0 - 0.1 K/cumm Neutrophil pct 87.7 % Lymphocyte pct 7.8 % Monocyte pct 0.9 % Basophil pct 0.9 % Myelocytes 0.9 % Promyelocyte 0.9 (H) 0.0 - 0.0 % Variant lymphs 0.9 (H) 0.0 - 0.0 % RBC morphology Normal Platelet estimate Adequate POCT glucose Collection Time: 11/22/19 6:53 AM Result Value Ref Range Glucose, POC 432 (H) 70 - 199 mg/dL POCT glucose Collection Time: 11/22/19 7:50 AM Result Value Ref Range Glucose, POC 270 (H) 70 - 199 mg/dL Vancomycin, trough Draw trough 30 minutes prior to 4th dose. Collection Time: 11/22/19 9:24 AM Result Value Ref Range Vancomycin, trough 21.3 (Critical) 10.0 - 20.9 mcg/mL Critical Result Callback Chemistry Collection Time: 11/22/19 9:24 AM Result Value Ref Range Date Notified [id number] Time Notified 1024 TestName odilia ann Called/Read Back marleny Vallejoentials RN Called By POCT glucose Collection Time: 11/22/19 12:03 PM Result Value Ref Range Glucose, POC 409 (H) 70 - 199 mg/dL CBC: Recent Labs Lab Units 11/22/19 0545 WBC K/cumm 13.6* HEMOGLOBIN g/dL 13.4 HEMATOCRIT % 40.1 MCV fL 100.3* PLATELETS K/cumm 286 MCH pg 33.5* MCHC g/dL 33.4 RDW CV % 13.5 RDWSD fL 49.5* MPV fL 11.5 NEUTROS ABS K/cumm 11.9* CMP: Recent Labs Lab Units 11/22/19 1203 11/22/19 0545 11/20/19 0929 SODIUM mmol/L -- -- 131* < > 138 POTASSIUM PLASMA mmol/L -- -- 5.5* < > 3.9 CO2 mmol/L -- -- 29 < > 35* BUN SERUM mg/dL -- -- 25 < > 15 GLUCOSE mg/dL -- -- 417* < > 402* POC GLUCOSE MONITOR mg/dL 409* < > -- < > -- CREATININE mg/dL -- -- 0.83 < > 0.74* CALCIUM mg/dL -- -- 9.2 < > 9.4 CHLORIDE mmol/L -- -- 94* < > 97 ALBUMIN g/dL -- -- -- -- 3.7 AST Units/L -- -- -- -- 18 ALT Units/L -- -- -- -- 30 ALK PHOS Units/L -- -- -- -- 118 BILIRUBIN TOTAL mg/dL -- -- -- -- 0.3 TOTAL PROTEIN g/dL -- -- -- -- 7.0 ANIONGAP mmol/L -- -- 8 < > 6 < > = values in this interval not displayed. LDH: Recent Labs Lab Units 11/20/19 0929 LACTATE DEHYDROGENASE (LDH) Units/L 428* Uric Acid: Recent Labs Lab Units 11/20/19 0929 URIC ACID mg/dL 5.2 Tacrolimus level: Recent Labs Lab Units 11/20/19 0929 TACRO RANDOM ng/mL <1.0 Sirolimus level: Cyclosporine level: PT: Recent Labs Lab Units 11/20/19 1235 PROTIME (PT) sec 10.3 PTT: Recent Labs Lab Units 11/20/19 1235 APTT sec 25 Assessment/Plan Tobacco abuse Assessment & Plan Nicotine patch Peripheral neuropathy Assessment & Plan Continue gabapentin CHF (congestive heart failure) ([facility]) Assessment & Plan With diastolic dysfunction, new diagnosis. -Continue Lasix. Rpt TTE Shortness of breath Assessment & Plan Concern for poss GVHD and/or poss COPD exacerbation, HF. Recently discharged from OSH with 2L O2 - Recently admitted to OSH with similar symptoms, discharged on pred taper. Now with increased O2 requirement, increased MILLER. - TTE (09/2019) EF 55%. - RVP neg. Check Bld Cx - Rpt TTE, check chest CT, ordered PFT - See GVHD problem. - Pulm toilet?? DVT (deep venous thrombosis) ([facility]) Assessment & Plan Continue xarelto COPD, severe ([facility]) Assessment & Plan Continue inhalers Pure hypercholesterolemia Assessment & Plan Continue statin Type 2 diabetes mellitus ([facility]) Assessment & Plan On basaglar 30 units AM and novolog 10 units TID with meals and SSI at home. No longer taking metformin at home - BG >400 on admit (pt stated he did not take his AM insulin). - Cont 30U Lantus, given steroid use and difficulty controlling glucose at home and in past hospitalizations. HD SSI. May need to add meal-time insulin based on glucose. - Hgb A1C 13 on admit. AML (acute myeloid leukemia) in remission ([facility]) Assessment & Plan -??Induction with 7+3 and HiDAC consolidation x3??s/p decitabine maintenance on the CALGB 63088 protocol. -??Relapsed disease,??status post an allogeneic transplant with busulfan and Cytoxan on the AMD allogeneic study with his sister, 08/27 match; with day 0 on 11/09/2009.?? - Currently in remission. Follows with Dr. Del Valle - On tacro, cellcept - OI ppx: Cont acyclovir. Add vori given remains on immunosuppressives. Add bactrim (pt stated he was no longer taking). Lsiap-qhsuxo-dfzp disease ([facility]) Assessment & Plan Continue cellcept 1 g BID and tacrolimus??0.5 every other day. -??on prednisone 60 bid at admission (pred taper), continue dose for now - cont eye drops - Cont Pred 60 bid. Sent prior-auth to 7th floor pharm to check insurance approval for Jakafi. Discussed possible EAP with customer services coordinator if not approved. - Cont spiriva; albuterol PRN. Continue home advair. Added Azithro 250 3x/weekly Osteopenia Assessment & Plan Continue home vitamin D and dietary calcium ET RAILWAY LINE INSTALLER * Lizzette Grijalva MD - 11/21/2019 9:18 AM CST Images from the original note were not included. BMT Daily Progress Note Visit date: 11/21/19 Patient: Bri Jones Attending Physician: Josué Del Valle MD PhD BMT Day: 24 Hour Events: NAEO. Reports persistent cough, but improvement shortness of breath. No other new complaints. Currently requiring 5 L of oxygen per nasal cannula. Hyperglycemic requiring titration of insulin. On broad-spectrum antibiotics and prophylaxis. Physical Examination: Temp: [36.4 ??C (97.5 ??F)-37.2 ??C (99 ??F)] Pulse: [69-98] Resp: [18-26] BP: (86-147)/(58-83) Intake/Output Summary (Last 24 hours) at 11/21/2019 0918 Last data filed at 11/21/2019 0640 Gross per 24 hour Intake 2583.31 ml Output 1325 ml Net 1258.31 ml Laboratory Interpretation: Lab Results Component Value Date WBC 14.1 (H) 11/21/2019 HGB 14.0 11/21/2019 HCT 42.6 11/21/2019 MCV 100.9 (H) 11/21/2019 LABPLAT 296 11/21/2019 Chemistry Lab Results Component Value Date SODIUM 132 (L) 11/21/2019 POTASSIUM 5.3 (H) 11/21/2019 CHLORIDE 92 (L) 11/21/2019 CO2 26 11/21/2019 ANIONGAP 14 11/21/2019 BUNSER 22 11/21/2019 CREATININE 0.79 (L) 11/21/2019 GLUCOSE 461 (Critical) 11/21/2019 GLUCOSE 529 (Critical) 11/21/2019 CALCIUM 9.2 11/21/2019 PHOS 4.6 (H) 11/21/2019 MAGNESIUM 1.8 11/21/2019 Imaging Interpretation: Ct Chest W Contrast Result Date: 11/20/2019 Narrative: EXAMINATION: Computed tomography of the chest with intravenous contrast HISTORY: Shortness of breath; hx allo SCT 2008 with worsening SOB, cough, hx COPD. Concern for GVHD vs infection. TECHNIQUE: Transaxial computed tomographic images of the chest were obtained with intravenous contrastaccording to the standard protocol after the uneventful administration of 100 mL Opti-Ray 350 intravenous contrast. COMPARISON: Chest CT 08/22/2019. FINDINGS: Right apical subpleural fibrosis, unchanged. Moderate to severe, upper lobe dominant centrilobular emphysema. New patchy tree-in-bud and nodular opacities scattered throughout both lungs. No confluent consolidation. Mild diffuse bronchial wall thickening. Secretions in the central tracheobronchial tree. Mucoid impaction within the basilarsegmental bronchi of the left lower lobe. Normal pleural spaces. No axillary, subpectoral or supraclavicular lymphadenopathy. Visualized thyroid is homogeneous in attenuation. No mediastinal or hilaradenopathy. Heart is normal size. Trace pericardial fluid could be physiologic. Mild to moderate coronary artery atherosclerosis. Thoracic aorta and its branch vessels are normal in course and caliber. Minimal aortic atherosclerosis. Esophagus is decompressed. Hepatic steatosis. Tiny calcificationin the posterior gallbladder fundus is unchanged. Splenic atrophy. Atrophy of the splenic tail. 4.5cm lobulated lesion in the region of the pancreatic tail is most consistent with sequelae of prior pancreatitis. No acute fracture. No destructive lytic or blastic lesion. Mild multilevel degenerative spondylosis. Normal soft tissues. Impression: 1. Scattered tree-in-bud and nodular opacities throughout both lungs suggestive of an acute infectious process. Thickened and debris-filled bronchi which are focally worse in the left lower lobe may indicate superimposed aspiration pneumonitis. Recommend follow-up noncontrast chest CT after the onset of appropriate medical therapy to document resolution. 2. Moderate to severe centrilobular emphysema. Electronically signed by: Bri Collins D.O. X-ray Chest 1 View (portable) Result Date: 11/20/2019 Narrative: EXAMINATION: 1 view chest radiograph Impression: Comparison to 08/22/2019. Redemonstrated are bilateral emphysematous changes with mild bibasilar atelectasis. The lungs are otherwise clear without focal consolidation or pulmonary edema.No definite pleural effusion or pneumothorax. Heart size and mediastinal contour are unchanged. Dictated by: Elsi Sweet M.D. The radiology attending physician has personally reviewed this study, and had reviewed and/or edited this written report and agrees with it. Electronically signed by: Candice Lara M.D. Assessment and Plan Active Problems: Osteopenia Ywvyy-wklpxw-pijg disease (CMS/HCC) 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) Type 2 diabetes mellitus (CMS/HCC) Pure hypercholesterolemia COPD, severe (CMS/HCC) DVT (deep venous thrombosis) (CMS/HCC) Shortness of breath CHF (congestive heart failure) (CMS/HCC) Peripheral neuropathy Tobacco abuse 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) -??Induction with 7+3 and HiDAC consolidation x3??s/p decitabine maintenance on the CALGB 20495 protocol. -??Relapsed disease,??status post an allogeneic transplant with busulfan and Cytoxan on the AMD allogeneic study with his sister, 08/27 match; with day 0 on 11/09/2009.?? - Currently in remission. Follows with Dr. Del Valle - Continue tacro, cellcept, Pred 40 bid - OI ppx: Cont acyclovir. Add vori given remains on immunosuppressives. Add bactrim (pt stated he was no longer taking). ?? Gqgfe-ngrejx-uaul disease (CMS/HCC) - Continue cellcept 1 g BID and tacrolimus??0.5 every other day. -??on prednisone 40 bid - cont eye drops - Sent prior-auth to 7th floor pharm to check insurance approval for Orenafi. Discussed possible EAPwith customer services coordinator if not approved. - Cont??spiriva; albuterol PRN. Continue home advair HCAP Unable to determine source currently. Concern for poss GVHD and/or poss COPD exacerbation, HF.??Recently discharged from OSH with 2L O2 - Recently admitted to OSH with similar symptoms, discharged on pred taper. Now with??increased??[id number], increased MILLER. - TTE (09/2019) EF 55%. - RVP neg. Check Bld Cx -CT chest 11/20/19: Scattered tree-in-bud and nodular opacities throughout both lungs suggestive of an acute infectious process. ??Thickened and debris-filled bronchi which are focally worse in the left lower lobe may indicate superimposed aspiration pneumonitis. - GVHD as above. - Pulm toilet?? Peripheral neuropathy Continue gabapentin ?? COPD, severe (CMS/HCC) Continue inhalers ?? CHF (congestive heart failure) (CMS/HCC) With diastolic dysfunction, new diagnosis. -Continue Lasix. Rpt TTE ?? DVT (deep venous thrombosis) (CMS/HCC) Continue xarelto Osteopenia Continue home vitamin D and dietary calcium ?? Pure hypercholesterolemia Continue statin ?? Type 2 diabetes mellitus (CMS/HCC) On basaglar 30 units AM and novolog 10 units TID with meals and SSI at home. No longer taking metformin at home -continue Lantus 30 daily, lispro 12 t.i.d. With meals and HD SSI - Hgb A1C 13 on admit. ?? Tobacco abuse Nicotine patch ?? Code status: Full Code ? Lizzette Grijalva MD Clinical Fellow PGY4 Divisions of Hematology and Oncology Pager [phone] Cosigned by Josué Del Valle MD PhD at 11/22/2019 9:[address] RAILWAY LINE INSTALLER ET RAILWAY LINE INSTALLER ET RAILWAY LINE INSTALLER ET RAILWAY LINE INSTALLER ET RAILWAY LINE INSTALLER Associated attestation - Josué Del Valle MD PhD - 11/22/2019 9:[address] RA[employer]AY LINE INSTALLER I have seen and examined the patient on 11/22/19. I agree with the findings and plan of care as documented in the resident/fellow's note. Josué Del Valle MD PhD documented in this encounter H&P Notes * Josué Del Valle MD PhD - 11/21/2019 4:36 PM CST BMT Progress Note BMT Day: 3663 No history exists. Subjective Patient is a 54 y.o. male with chief complaint of shortness of breath. 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 He was seen in clinic today due to persistent shortness of breath, with difficulty walking 12 to 15 feet without significant shortness of breath. He admits on 5L O2. He also endorses productive cough with yellow/green sputum over the past few months. Denies fever, chills, body aches, no N/V/D. He states that he continues on Cellcept 1gm bid and Tacro 0.5mg every other day. His most recent tacro levels today and on 08/23/19 were <1.0. Past Medical History: Diagnosis Date ??? Personal history of leukemia History of acute myeloid leukemia - (Added by TW Conv) ??? Personal history of other diseases of the respiratory system History of pulmonary emphysema - (Added by TW Conv) ??? Personal history of other endocrine, nutritional and metabolic disease History of diabetes mellitus - (Added by TW Conv) ??? Personal history of other venous thrombosis and embolism H/O blood clots - (Added by TW Conv) ??? Visual disturbance Vision changes - (Added by TW Conv) Past Surgical History: Procedure Laterality Date ??? 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 FILTER N/A 07/16/2013 ??? 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 FILTER N/A 02/05/2013 ??? NJ TUBE PLACEMENT N/A 02/04/2013 ??? NJ TUBE PLACEMENT N/A 02/04/2013 ??? NJ TUBE PLACEMENT N/A 01/28/2013 ??? NJ TUBE PLACEMENT N/A 01/28/2013 Allergies Allergen Reactions ??? Adhesive Redness Social History Tobacco Use ??? Smoking status: Current Every Day Smoker ??? Smokeless tobacco: Never Used ??? Tobacco comment: Pt not interested in smoking cessation program Substance Use Topics ??? Alcohol use: Not on file Family History Problem Relation Age of Onset ??? Heart disease Mother Family history of cardiac disorder - (Added by TW Conv) HOME MEDICATIONS : acyclovir (ZOVIRAX) 400 mg tablet ADVAIR DISKUS 100-50 mcg/dose diskus inhaler atorvastatin (LIPITOR) 40 mg tablet BASAGLAR KWIKPEN U-100 INSULIN 100 unit/mL (3 mL) insulin pen blood glucose diagnostic strip blood-glucose meter misc dextromethorphan-guaiFENesin (TUSSIN-DM) liquid 10-100 mg/5 mL DOXYCYCLINE HYCLATE 100 mg capsule ergocalciferol (VITAMIN D) 50,000 unit capsule furosemide (LASIX) 20 mg tablet gabapentin (NEURONTIN) 300 mg capsule glucagon (glucagon) 1 mg kit HUMALOG KWIKPEN INSULIN 100 unit/mL insulin pen HYDROcodone-acetaminophen (NORCO) 5-325 mg per tablet metFORMIN XR (GLUCOPHAGE XR) 500 mg 24 hr tablet montelukast (SINGULAIR) 10 mg tablet mycophenolate mofetil (CELLCEPT) 500 mg tablet nicotine (NICODERM CQ) 21 mg ofloxacin (OCUFLOX) 0.3 % ophthalmic solution pen needle, diabetic 31 gauge x 5/16 needle ruxolitinib (JAKAFI) 5 mg tablet sildenafil, antihypertensive, (REVATIO) 20 mg tablet sodium chloride-sodium bicarbonate (NEILMED SINUS RINSE, AYR) packet with rinse device sulfamethoxazole-trimethoprim (BACTRIM DS,SEPTRA DS) 800-160 mg per tablet tacrolimus (PROGRAF) 0.5 mg capsule tiotropium (SPIRIVA) 18 mcg per inhalation capsule traMADol (ULTRAM) 50 mg tablet TRELEGY ELLIPTA 100-62.5-25 mcg inhaler VENTOLIN HFA 90 mcg/actuation inhaler XARELTO 20 mg tablet predniSONE (DELTASONE) 10 mg tablet Current Facility-Administered Medications Medication Dose Route Frequency Provider Last Rate Last Dose ??? acetaminophen (TYLENOL) tablet 650 mg 650 mg oral Q4H PRN Iza Gordon NP ??? acetaminophen (TYLENOL) tablet 650 mg 650 mg oral Q6H PRN Iza Gordon NP ??? acyclovir (ZOVIRAX) tablet 400 mg 400 mg oral Q8H Iza Gordon NP ??? albuterol HFA (PROVENTIL HFA,VENTOLIN HFA,PROAIR HFA) 90 mcg/actuation inhaler 2 puff 2 puff inhalation Q4H PRN (RT) Iza Gordon NP ? ? aluminum & magnesium frqtbtkgq-gwfbaaiapdx-iekuzoferxvbodg-lidocaine (MAGIC MOUTHWASH) suspension 1-1-1 15 mL swish & swallow QID PRN Iza Gordon NP ??? atorvastatin (LIPITOR) tablet 40 mg 40 mg oral Daily Iza Gordon NP ??? bacitracin-polymyxin B (POLYSPORIN) 500-10,000 unit/gram ointment tube 1 application 1 application topical Q4H PRN Iza Gordon NP ??? camphor-menthol (SARNA) 0.5-0.5 % lotion topical Q2H PRN Iza Gordon NP ??? dextrose (GLUTOSE) 40 % gel 15 g 15 g oral Q15 Min PRN Iza Gordon NP Or ??? dextrose (D10W) 10% bolus 250 mL 250 mL intravenous Q15 Min PRN Iza Gordon NP ??? ergocalciferol (VITAMIN D) capsule 50,000 Units 50,000 Units oral Weekly Iza Gordon NP ??? fluticasone propion-salmeterol (ADVAIR DISKUS) 100-50 mcg/dose diskus inhaler 1 puff 1 puff inhalation BID (RT) Iza Gordon NP ??? furosemide (LASIX) tablet 20 mg 20 mg oral Daily Iza Gordon NP ??? gabapentin (NEURONTIN) capsule 300 mg 300 mg oral QID Iza Gordon NP ??? glucagon injection 1 mg 1 mg intramuscular Q30 Min PRN Iza Gordon NP ??? heparin 10 unit/mL flush 20-50 Units 2-5 mL intra-catheter PRN Iza Gordon NP ??? heparin 10 unit/mL flush 50 Units 5 mL intra-catheter Q12H ROSA MARIA Iza Gordon NP ??? insulin glargine (LANTUS) injection 30 Units 30 Units subcutaneous QAM Iza Gordon NP 30 Units at 11/20/19 1318 ??? insulin lispro (HumaLOG) injection 1-3 Units 1-3 Units subcutaneous Nightly Iza Gordon NP ??? insulin lispro (HumaLOG) injection 1-5 Units 1-5 Units subcutaneous TID with meals Iza Gordon FUR TRIMMER ??? loperamide (IMODIUM) capsule 2 mg 2 mg oral Q1H PRN Iza Gordon FUR TRIMMER ??? magnesium sulfate 4 g/100 mL in water (premix) 4 g 4 g intravenous Q4H PRN Iza Gordon, FUR TRIMMER ??? magnesium sulfate 6 g in sodium chloride 0.9% 250 mL IVPB 6 g intravenous Q4H PRN Iza Gordon, FUR TRIMMER ??? montelukast (SINGULAIR) tablet 10 mg 10 mg oral Nightly Iza Gordon, FUR TRIMMER ??? mycophenolate mofetil (CELLCEPT) tablet 1,000 mg 1,000 mg oral BID Iza Gordon, FUR TRIMMER ??? nicotine (NICODERM CQ) 21 mg patch 24 hour 1 patch 1 patch transdermal Daily Iza Gordon NP ??? ofloxacin (OCUFLOX) 0.3 % ophthalmic solution 1 drop 1 drop each eye BID Iza Gordon, FUR TRIMMER ??? polyvinyl alcohol (LIQUIFILM TEARS) 1.4 % ophthalmic solution 2 drop 2 drop each eye Q4H PRN Iza Gordon FUR TRIMMER ??? potassium chloride 40 mEq/520 mL in sodium chloride 0.9% (premix) 40 mEq 40 mEq intravenous Q4HPRN Iza Gordon NP ??? potassium chloride ER (KLOR-CON) extended release tablet 40 mEq 40 mEq oral Q4H PRN Iza Gordon, FUR TRIMMER ??? pramoxine-zinc oxide (TRONOLANE) 1-5 % rectal cream rectal TID PRN Iza Gordon FUR TRIMMER ??? rivaroxaban (XARELTO) tablet 20 mg 20 mg oral Daily with dinner Iza Gordon, FUR TRIMMER ??? sodium chloride (OCEAN) 0.65 % nasal spray 2 spray 2 spray each nostril Q1H PRN Iza Nugent, FUR TRIMMER ? ? sodium chloride 0.9 % irrigation 30 mL 30 mL swish & spit QID Iza Wright Heidi, FUR TRIMMER ??? sodium chloride 0.9% flush 0.5-20 mL 0.5-20 mL intra-catheter Q8H ROSA MARIA Iza Wright Heidi,FUR TRIMMER 10 mL at 11/20/19 1407 ??? sodium chloride 0.9% flush 0.5-20 mL 0.5-20 mL intra-catheter PRN Iza Morilloreed Gordon, FUR TRIMMER ??? sodium chloride 0.9% infusion 30 mL/hr intravenous Continuous PRN Iza Wright Heidi, FUR TRIMMER ??? sodium chloride 0.9% IVPB 0-250 mL 0-250 mL intravenous PRN Iza Adriana Heidi, FUR TRIMMER ??? tacrolimus (PROGRAF) capsule 0.5 mg 0.5 mg oral Every other day Iza Gordon, FUR TRIMMER ??? tiotropium (SPIRIVA) 18 mcg per inhalation capsule 1 capsule 1 capsule inhalation Daily Iza Adrianajacquelyn Gordon FUR TRIMMER ??? white petrolatum-mineral oil (EUCERIN) cream topical Q2H PRN Iza Adrianajacquelyn Gordon NP Review of Systems Review of Systems Eyes: Dry eyes Respiratory: Positive for cough and shortness of breath. Cardiovascular: Positive for leg swelling. All other systems reviewed and are negative. Objective Vitals: Most Recent : Vitals: 11/21/19 1510 BP: 111/61 Pulse: 88 Resp: 20 Temp: 37.1 ??C (98.8 ??F) SpO2: 93% Physical exam: Physical Exam HENT: Mouth/Throat: Mouth: Mucous membranes are dry. Pharynx: Oropharynx is clear. Eyes: Pupils: Pupils are equal, round, and reactive to light. Cardiovascular: Rate and Rhythm: Normal rate and regular rhythm. Pulses: Normal pulses. Heart sounds: Normal heart sounds. Pulmonary: Effort: Pulmonary effort is normal. Comments: Diminished all lobes Abdominal: General: Bowel sounds are normal. Palpations: Abdomen is soft. Musculoskeletal: Right lower leg: Edema present. Left lower leg: Edema present. Comments: BLE pitting edema Skin: Comments: BLE erythema Neurological: General: No focal deficit present. Mental Status: He is alert and oriented to person, place, and time. Psychiatric: Mood and Affect: Mood normal. Behavior: Behavior normal. Lab/Radiology/Diagnostic Review: Laboratory review: Lab results in the last 24 hours: Recent Results (from the past 24 hour(s)) POCT glucose Collection Time: 11/20/19 5:15 PM Result Value Ref Range Glucose, POC 335 (H) 70 - 199 mg/dL Filamentous fungus culture, blood Blood Collection Time: 11/20/19 6:46 PM Result Value Ref Range Report Preliminary Report: No growth of fungus to date POCT glucose Collection Time: 11/20/19 8:05 PM Result Value Ref Range Glucose, POC 247 (H) 70 - 199 mg/dL Magnesium Collection Time: 11/21/19 3:40 AM Result Value Ref Range Magnesium 1.8 1.4 - 2.5 mg/dL Phosphorus Collection Time: 11/21/19 3:40 AM Result Value Ref Range Phosphorus, pl 4.6 (H) 2.3 - 4.5 mg/dL Basic metabolic panel Collection Time: 11/21/19 3:40 AM Result Value Ref Range Sodium 132 (L) 135 - 145 mmol/L Potassium, pl 5.3 (H) 3.3 - 4.9 mmol/L Chloride 92 (L) 97 - 110 mmol/L CO2 26 22 - 32 mmol/L Anion gap 14 2 - 15 mmol/L BUN 22 8 - 25 mg/dL Creatinine 0.79 (L) 0.80 - 1.30 mg/dL Glucose 529 (Critical) 70 - 199 mg/dL Calcium 9.2 8.5 - 10.3 mg/dL CBC without differential Collection Time: 11/21/19 3:40 AM Result Value Ref Range WBC 14.1 (H) 3.8 - 9.9 K/cumm Hgb 14.0 13.0 - 17.5 g/dL Hct 42.6 38.9 - 50.3 % Plt 296 150 - 400 K/cumm MPV 11.7 9.1 - 12.3 fL RBC 4.22 (L) 4.30 - 5.80 M/cumm MCV 100.9 (H) 81.3 - 96.4 fL MCH 33.2 27.1 - 33.3 pg MCHC 32.9 32.3 - 35.7 g/dL RDW CV 13.6 11.1 - 14.9 % RDW SD 50.3 (H) 35.7 - 48.1 fL NRBC abs 0.78 (H) 0.00 - 0.01 K/cumm Manual Differential Collection Time: 11/21/19 3:40 AM Result Value Ref Range Differential Manual Cells Counted 114 Neutrophil abs 12.7 (H) 1.7 - 6.5 K/cumm Imm gran abs 0.5 (H) 0.0 - 0.1 K/cumm Lymphocyte abs 0.9 0.8 - 3.3 K/cumm Monocyte abs 0.1 (L) 0.2 - 0.8 K/cumm Neutrophil pct 89.5 % Lymphocyte pct 6.1 % Monocyte pct 0.9 % Myelocytes 2.6 % Promyelocyte 0.9 (H) 0.0 - 0.0 % RBC morphology Present (A) Polychromasia 3-7/HPF (A) Anisocytosis Slight (A) Poikilocytosis Moderate (A) Macrocytes 3-7/HPF (A) Schistocytes 1-2/HPF (A) Echinocytes 8-15/HPF (A) Platelet estimate Adequate Critical Result Callback Chemistry Collection Time: 11/21/19 3:40 AM Result Value Ref Range Date Notified [id number] Time Notified 455 TestName glucose Called/Read Back bela Vallejoentials RN Called By Aerobic culture and gram stain Sputum Lung Collection Time: 11/21/19 3:45 AM Result Value Ref Range Direct Specimen Exam Stain: Abundant polymorphonuclear leukocytes seen. No squamous epithelial cells seen. Abundant Mixed bacterial ocsar seen on gram stain. POCT glucose Collection Time: 11/21/19 5:06 AM Result Value Ref Range Glucose, POC 491 (Critical) 70 - 199 mg/dL Glucose comment 1 Glu2: POCT glucose Collection Time: 11/21/19 6:27 AM Result Value Ref Range Glucose, POC 386 (H) 70 - 199 mg/dL POCT glucose Collection Time: 11/21/19 8:28 AM Result Value Ref Range Glucose, POC 367 (H) 70 - 199 mg/dL POCT glucose Collection Time: 11/21/19 12:36 PM Result Value Ref Range Glucose, POC 481 (Critical) 70 - 199 mg/dL Glucose comment 1 RN Notified CBC: Recent Labs Lab Units 11/21/19 0340 WBC K/cumm 14.1* HEMOGLOBIN g/dL 14.0 HEMATOCRIT % 42.6 MCV fL 100.9* MCH pg 33.2 MCHC g/dL 32.9 RDW CV % 13.6 RDWSD fL 50.3* MPV fL 11.7 NEUTROS ABS K/cumm 12.7* CMP: Recent Labs Lab Units 11/21/19 1236 11/21/19 0340 11/20/19 0929 SODIUM mmol/L -- -- 132* -- 138 POTASSIUM PLASMA mmol/L -- -- 5.3* -- 3.9 CO2 mmol/L -- -- 26 -- 35* BUN SERUM mg/dL -- -- 22 -- 15 GLUCOSE mg/dL -- -- 529* -- 402* POC GLUCOSE MONITOR mg/dL 481* < > -- < > -- CREATININE mg/dL -- -- 0.79* -- 0.74* CALCIUM mg/dL -- -- 9.2 -- 9.4 CHLORIDE mmol/L -- -- 92* -- 97 ALBUMIN g/dL -- -- -- -- 3.7 AST Units/L -- -- -- -- 18 ALT Units/L -- -- -- -- 30 ALK PHOS Units/L -- -- -- -- 118 BILIRUBIN TOTAL mg/dL -- -- -- -- 0.3 TOTAL PROTEIN g/dL -- -- -- -- 7.0 ANIONGAP mmol/L -- -- 14 -- 6 < > = values in this interval not displayed. LDH: Recent Labs Lab Units 11/20/19 0929 LACTATE DEHYDROGENASE (LDH) Units/L 428* Uric Acid: Recent Labs Lab Units 11/20/19 0929 URIC ACID mg/dL 5.2 Tacrolimus level: Recent Labs Lab Units 11/20/19 0929 TACRO RANDOM ng/mL <1.0 Sirolimus level: Cyclosporine level: PT: Recent Labs Lab Units 11/20/19 1235 PROTIME (PT) sec 10.3 PTT: Recent Labs Lab Units 11/20/19 1235 APTT sec 25 Radiology: CT Chest W Contrast Final Result 1. Scattered tree-in-bud and nodular opacities throughout both lungs suggestive of an acute infectious process. Thickened and debris-filled bronchi which are focally worse in the left lower lobe may indicate superimposed aspiration pneumonitis. Recommend follow-up noncontrast chest CT after the onset of appropriate medical therapy to document resolution. 2. Moderate to severe centrilobular emphysema. Electronically signed by: Bri Collins D.O. X-ray chest 1 view (Portable) Final Result Comparison to 08/22/2019. Redemonstrated are bilateral emphysematous changes with mild bibasilar atelectasis. The lungs are otherwise clear without focal consolidation or pulmonary edema. No definite pleural effusion or pneumothorax. Heart size and mediastinal contour are unchanged. Dictated by: Elsi Sweet M.D. The radiology attending physician has personally reviewed this study, and had reviewed and/or edited this written report and agrees with it. Electronically signed by: Candice Lara M.D. Transthoracic Echo Complete W Doppler/CF (Results Pending) Assessment/Plan Nervous Peripheral neuropathy Continue gabapentin Respiratory Shortness of breath Concern for poss GVHD and/or poss COPD exacerbation, HF. Recently discharged from OSH with 2L O2 - Recently admitted to OSH with similar symptoms, discharged on pred taper. Now with increased O2 requirement, increased MILLER. - TTE (09/2019) EF 55%. - RVP neg. Check Bld Cx - Rpt TTE, check chest CT, ordered PFT - See GVHD problem. - Pulm toilet?? COPD, severe ([facility]) Continue inhalers Circulatory CHF (congestive heart failure) ([facility]) With diastolic dysfunction, new diagnosis. -Continue Lasix. Rpt TTE DVT (deep venous thrombosis) ([facility]) Continue xarelto Musculoskeletal Osteopenia Continue home vitamin D and dietary calcium Endocrine/Metabolic Pure hypercholesterolemia Continue statin Type 2 diabetes mellitus ([facility]) On basaglar 30 units AM and novolog 10 units TID with meals and SSI at home. No longer taking metformin at home - BG >400 on admit (pt stated he did not take his AM insulin). - Cont 30U Lantus, given steroid use and difficulty controlling glucose at home and in past hospitalizations. HD SSI. May need to add meal-time insulin based on glucose. - Hgb A1C 13 on admit. Hematologic AML (acute myeloid leukemia) in remission ([facility]) -??Induction with 7+3 and HiDAC consolidation x3??s/p decitabine maintenance on the CALGB 29462 protocol. -??Relapsed disease,??status post an allogeneic transplant with busulfan and Cytoxan on the AMD allogeneic study with his sister, 08/27 match; with day 0 on 11/09/2009.?? - Currently in remission. Follows with Dr. Del Valle - On tacro, cellcept - OI ppx: Cont acyclovir. Add vori given remains on immunosuppressives. Add bactrim (pt stated he was no longer taking). Immune Luvdu-nglpos-stug disease (CMS/HCC) Continue cellcept 1 g BID and tacrolimus??0.5 every other day. -??on prednisone 60 bid at admission (pred taper), continue dose for now - cont eye drops - Cont Pred 60 bid. Sent prior-auth to 7th floor pharm to check insurance approval for Jakafi. Discussed possible EAP with customer services coordinator if not approved. - Cont spiriva; albuterol PRN. Continue home advair. Added Azithro 250 3x/weekly Other Tobacco abuse Nicotine patch Josué Del Valle MD PhD ET [employer] * Iza Gordon, FUR TRIMMER - 11/20/2019 2:30 PM CST BMT History and Physical BMT Day: No history exists. Subjective Patient is a 54 y.o. male with chief complaint of shortness of breath. 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 He was recently discharged from [facility] last week after having an episode of worsening shortness of breath, which he states has been up and down over the past several months. He was found to have CHF, and discharged on Lasix. He also has significant LE edema, which he states is improved since discharge. His most recent cardiac echo in late September showed an EF of 55%. He had reportedly been off his prednisone for a while due to inability to get it filled at his pharmacy. However, he states that he was most recently initiated on a prednisone taper at the OSH of 100mg bid x2 days, followed by 80 bid x2 days, at current dose of 60 bid, with goal to continue titration every 2 days until he reached 20mg bid. He was seen in clinic today due to persistent shortness of breath, with difficulty walking 12 to 15feet without significant shortness of breath. He admits on 5L O2. He also endorses productive cough with yellow/green sputum over the past few months. Denies fever, chills, body aches, no N/V/D. He states that he continues on Cellcept 1gm bid and Tacro 0.5mg every other day. His most recent tacro levels today and on 08/23/19 were <1.0. Past Medical History: Diagnosis Date ??? Personal history of leukemia History of acute myeloid leukemia - (Added by TW Conv) ??? Personal history of other diseases of the respiratory system History of pulmonary emphysema - (Added by TW Conv) ??? Personal history of other endocrine, nutritional and metabolic disease History of diabetes mellitus - (Added by TW Conv) ??? Personal history of other venous thrombosis and embolism H/O blood clots - (Added by TW Conv) ??? Visual disturbance Vision changes - (Added by TW Conv) Past Surgical History: Procedure Laterality Date ??? 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 FILTER N/A 07/16/2013 ??? 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 FILTER N/A 02/05/2013 ??? NJ TUBE PLACEMENT N/A 02/04/2013 ??? NJ TUBE PLACEMENT N/A 02/04/2013 ??? NJ TUBE PLACEMENT N/A 01/28/2013 ??? NJ TUBE PLACEMENT N/A 01/28/2013 Allergies Allergen Reactions ??? Adhesive Redness Social History Tobacco Use ??? Smoking status: Current Every Day Smoker ??? Smokeless tobacco: Never Used ??? Tobacco comment: Pt not interested in smoking cessation program Substance Use Topics ??? Alcohol use: Not on file Family History Problem Relation Age of Onset ??? Heart disease Mother Family history of cardiac disorder - (Added by TW Conv) HOME MEDICATIONS : acyclovir (ZOVIRAX) 400 mg tablet ADVAIR DISKUS 100-50 mcg/dose diskus inhaler atorvastatin (LIPITOR) 40 mg tablet BASAGLAR KWIKPEN U-100 INSULIN 100 unit/mL (3 mL) insulin pen blood glucose diagnostic strip blood-glucose meter misc dextromethorphan-guaiFENesin (TUSSIN-DM) liquid 10-100 mg/5 mL DOXYCYCLINE HYCLATE 100 mg capsule ergocalciferol (VITAMIN D) 50,000 unit capsule furosemide (LASIX) 20 mg tablet gabapentin (NEURONTIN) 300 mg capsule glucagon (glucagon) 1 mg kit HUMALOG KWIKPEN INSULIN 100 unit/mL insulin pen HYDROcodone-acetaminophen (NORCO) 5-325 mg per tablet metFORMIN XR (GLUCOPHAGE XR) 500 mg 24 hr tablet montelukast (SINGULAIR) 10 mg tablet mycophenolate mofetil (CELLCEPT) 500 mg tablet nicotine (NICODERM CQ) 21 mg ofloxacin (OCUFLOX) 0.3 % ophthalmic solution pen needle, diabetic 31 gauge x 5/16 needle ruxolitinib (JAKAFI) 5 mg tablet sildenafil, antihypertensive, (REVATIO) 20 mg tablet sodium chloride-sodium bicarbonate (NEILMED SINUS RINSE, AYR) packet with rinse device sulfamethoxazole-trimethoprim (BACTRIM DS,SEPTRA DS) 800-160 mg per tablet tacrolimus (PROGRAF) 0.5 mg capsule tiotropium (SPIRIVA) 18 mcg per inhalation capsule traMADol (ULTRAM) 50 mg tablet TRELEGY ELLIPTA 100-62.5-25 mcg inhaler VENTOLIN HFA 90 mcg/actuation inhaler XARELTO 20 mg tablet predniSONE (DELTASONE) 10 mg tablet Current Facility-Administered Medications Medication Dose Route Frequency Provider Last Rate Last Dose ??? acetaminophen (TYLENOL) tablet 650 mg 650 mg oral Q4H PRN Iza Gordon NP ??? acetaminophen (TYLENOL) tablet 650 mg 650 mg oral Q6H PRN Iza Gordon NP ??? acyclovir (ZOVIRAX) tablet 400 mg 400 mg oral Q8H Iza Gordon NP ??? albuterol HFA (PROVENTIL HFA,VENTOLIN HFA,PROAIR HFA) 90 mcg/actuation inhaler 2 puff 2 puff inhalation Q4H PRN (RT) Iza Gordon NP ? ? aluminum & magnesium weohfdzxl-npkviejzaft-fcdhprikqrhclve-lidocaine (MAGIC MOUTHWASH) suspension 1-1-1 15 mL swish & swallow QID PRN Iza Gordon NP ??? atorvastatin (LIPITOR) tablet 40 mg 40 mg oral Daily Iza Gordon NP ??? bacitracin-polymyxin B (POLYSPORIN) 500-10,000 unit/gram ointment tube 1 application 1 application topical Q4H PRN Iza Gordon NP ??? camphor-menthol (SARNA) 0.5-0.5 % lotion topical Q2H PRN Iza Gordon NP ??? dextrose (GLUTOSE) 40 % gel 15 g 15 g oral Q15 Min PRN Iza Gordon NP Or ??? dextrose (D10W) 10% bolus 250 mL 250 mL intravenous Q15 Min PRN Iza Gordon NP ??? ergocalciferol (VITAMIN D) capsule 50,000 Units 50,000 Units oral Weekly Iza Gordon NP ??? fluticasone propion-salmeterol (ADVAIR DISKUS) 100-50 mcg/dose diskus inhaler 1 puff 1 puff inhalation BID (RT) Iza Gordon NP ??? furosemide (LASIX) tablet 20 mg 20 mg oral Daily Iza Gordon NP ??? gabapentin (NEURONTIN) capsule 300 mg 300 mg oral QID Iza Gordno NP ??? glucagon injection 1 mg 1 mg intramuscular Q30 Min PRN Iza Gordon NP ??? heparin 10 unit/mL flush 20-50 Units 2-5 mL intra-catheter PRN Iza Gordon NP ??? heparin 10 unit/mL flush 50 Units 5 mL intra-catheter Q12H ROSA MARIA Iza Gordon NP ??? insulin glargine (LANTUS) injection 30 Units 30 Units subcutaneous QAM Iza Gordon NP 30 Units at 11/20/19 1318 ??? insulin lispro (HumaLOG) injection 1-3 Units 1-3 Units subcutaneous Nightly Iza Gordon FUR TRIMMER ??? insulin lispro (HumaLOG) injection 1-5 Units 1-5 Units subcutaneous TID with meals Iza Gordon FUR TRIMMER ??? loperamide (IMODIUM) capsule 2 mg 2 mg oral Q1H PRN Iza Gordon, FUR TRIMMER ??? magnesium sulfate 4 g/100 mL in water (premix) 4 g 4 g intravenous Q4H PRN Iza Gordon, FUR TRIMMER ??? magnesium sulfate 6 g in sodium chloride 0.9% 250 mL IVPB 6 g intravenous Q4H PRN Iza Gordon, FUR TRIMMER ??? montelukast (SINGULAIR) tablet 10 mg 10 mg oral Nightly Iza Gordon FUR TRIMMER ??? mycophenolate mofetil (CELLCEPT) tablet 1,000 mg 1,000 mg oral BID Iza Godron, FUR TRIMMER ??? nicotine (NICODERM CQ) 21 mg patch 24 hour 1 patch 1 patch transdermal Daily Iza Gordon FUR TRIMMER ??? ofloxacin (OCUFLOX) 0.3 % ophthalmic solution 1 drop 1 drop each eye BID Iza Gordon NP ??? polyvinyl alcohol (LIQUIFILM TEARS) 1.4 % ophthalmic solution 2 drop 2 drop each eye Q4H PRN Iza Gordon FUR TRIMMER ??? potassium chloride 40 mEq/520 mL in sodium chloride 0.9% (premix) 40 mEq 40 mEq intravenous Q4HPRN Iza Gordon, FUR TRIMMER ??? potassium chloride ER (KLOR-CON) extended release tablet 40 mEq 40 mEq oral Q4H PRN Iza Gordon FUR TRIMMER ??? pramoxine-zinc oxide (TRONOLANE) 1-5 % rectal cream rectal TID PRN Iza Gordon, FUR TRIMMER ??? rivaroxaban (XARELTO) tablet 20 mg 20 mg oral Daily with dinner Iza Gordon, FUR TRIMMER ??? sodium chloride (OCEAN) 0.65 % nasal spray 2 spray 2 spray each nostril Q1H PRN Iza Nugent, FUR TRIMMER ? ? sodium chloride 0.9 % irrigation 30 mL 30 mL swish & spit QID Iza Gordon, FUR TRIMMER ??? sodium chloride 0.9% flush 0.5-20 mL 0.5-20 mL intra-catheter Q8H ROSA MARIA Iza Gordon,FUR TRIMMER 10 mL at 11/20/19 1407 ??? sodium chloride 0.9% flush 0.5-20 mL 0.5-20 mL intra-catheter PRN Iza Gordon, FUR TRIMMER ??? sodium chloride 0.9% infusion 30 mL/hr intravenous Continuous PRN Iza Gordon, FUR TRIMMER ??? sodium chloride 0.9% IVPB 0-250 mL 0-250 mL intravenous PRN Iza Gordon, FUR TRIMMER ??? tacrolimus (PROGRAF) capsule 0.5 mg 0.5 mg oral Every other day Iza Gordon, FUR TRIMMER ??? tiotropium (SPIRIVA) 18 mcg per inhalation capsule 1 capsule 1 capsule inhalation Daily Iza Gordon NP ??? white petrolatum-mineral oil (EUCERIN) cream topical Q2H PRN Iza Gordon NP Review of Systems Review of Systems Eyes: Dry eyes Respiratory: Positive for cough and shortness of breath. Cardiovascular: Positive for leg swelling. All other systems reviewed and are negative. Objective Vitals: Most Recent : Vitals: 11/20/19 1235 BP: 101/64 Pulse: 90 Resp: 24 Temp: 36.4 ??C (97.5 ??F) SpO2: 91% Physical exam: Physical Exam HENT: Mouth/Throat: Mouth: Mucous membranes are dry. Pharynx: Oropharynx is clear. Eyes: Pupils: Pupils are equal, round, and reactive to light. Cardiovascular: Rate and Rhythm: Normal rate and regular rhythm. Pulses: Normal pulses. Heart sounds: Normal heart sounds. Pulmonary: Effort: Pulmonary effort is normal. Comments: Diminished all lobes Abdominal: General: Bowel sounds are normal. Palpations: Abdomen is soft. Musculoskeletal: Right lower leg: Edema present. Left lower leg: Edema present. Comments: BLE pitting edema Skin: Comments: BLE erythema Neurological: General: No focal deficit present. Mental Status: He is alert and oriented to person, place, and time. Psychiatric: Mood and Affect: Mood normal. Behavior: Behavior normal. Lab/Radiology/Diagnostic Review: Laboratory review: Lab results in the last 24 hours: Recent Results (from the past 24 hour(s)) Uric acid Collection Time: 11/20/19 9:29 AM Result Value Ref Range Uric acid 5.2 3.0 - 8.0 mg/dL Tacrolimus level, random Collection Time: 11/20/19 9:29 AM Result Value Ref Range Tacrolimus, random <1.0 ng/mL Magnesium Collection Time: 11/20/19 9:29 AM Result Value Ref Range Magnesium 1.7 1.4 - 2.5 mg/dL Lactate dehydrogenase (LD) Collection Time: 11/20/19 9:29 AM Result Value Ref Range Lactate dehydrogenase (LDH) 428 (H) 100 - 250 Units/L IgG Collection Time: 11/20/19 9:29 AM Result Value Ref Range Immunoglobulin G 900.0 700.0 - 1,600.0 mg/dL Vitamin D 25 hydroxy Collection Time: 11/20/19 9:29 AM Result Value Ref Range Vitamin D, 25-hydroxy 16 (L) 30 - 80 ng/mL Hemoglobin A1c Collection Time: 11/20/19 9:29 AM Result Value Ref Range Hgb A1C 13.5 (H) 4.0 - 5.6 % Estimated Average Glucose 341 mg/dL Comprehensive metabolic panel Collection Time: 11/20/19 9:29 AM Result Value Ref Range Sodium 138 135 - 145 mmol/L Potassium, pl 3.9 3.3 - 4.9 mmol/L Chloride 97 97 - 110 mmol/L CO2 35 (H) 22 - 32 mmol/L Anion gap 6 2 - 15 mmol/L BUN 15 8 - 25 mg/dL Creatinine 0.74 (L) 0.80 - 1.30 mg/dL Glucose 402 (H) 70 - 199 mg/dL Calcium 9.4 8.5 - 10.3 mg/dL Bilirubin, total 0.3 0.1 - 1.2 mg/dL Protein, pl 7.0 6.5 - 8.5 g/dL Albumin 3.7 3.5 - 5.0 g/dL Alk phos 118 40 - 130 Units/L ALT 30 7 - 55 Units/L AST 18 10 - 50 Units/L Phosphorus Collection Time: 11/20/19 9:29 AM Result Value Ref Range Phosphorus, pl 2.0 (L) 2.3 - 4.5 mg/dL T-helper cells (CD4) count Collection Time: 11/20/19 9:44 AM Result Value Ref Range CD4 pct 43 31 - 64 % CD4 Absolute 1,527 (H) 365 - 1,294 cells/mcL CBC with auto differential Collection Time: 11/20/19 9:45 AM Result Value Ref Range WBC 14.1 (H) 3.8 - 9.8 K/cumm Hgb 14.2 13.8 - 17.2 g/dL Hct 42.2 40.7 - 50.3 % Plt 291 140 - 440 K/cumm MPV 9.2 6.8 - 10.4 fL RBC 4.17 (L) 4.50 - 5.70 M/cumm MCV 101.3 (H) 80.0 - 97.6 fL MCH 34.1 (H) 26.7 - 33.7 pg MCHC 33.6 32.7 - 35.5 g/dL RDW CV 14.5 11.8 - 14.6 % NRBC abs 0.52 (H) 0.00 - 0.01 K/cumm Manual Differential Collection Time: 11/20/19 9:45 AM Result Value Ref Range Differential Manual Cells Counted 100 Neutrophil abs 8.6 (H) 1.7 - 6.5 K/cumm Imm gran abs 0.0 0.0 - 0.1 K/cumm Lymphocyte abs 5.1 (H) 0.8 - 3.3 K/cumm Monocyte abs 0.3 0.2 - 0.8 K/cumm Eosinophil abs 0.1 0.0 - 0.5 K/cumm Neutrophil pct 61.0 % Lymphocyte pct 34.0 % Monocyte pct 2.0 % Eosinophil pct 1.0 % Neutrophilic bands 0.0 0.0 - 6.0 % Neutrophilic metamyelocytes 0.0 0.0 - 0.0 % Myelocytes 0.0 0.0 - 0.0 % Promyelocyte 0.0 0.0 - 0.0 % Variant lymphs 2.0 (H) 0.0 - 0.0 % RBC morphology nrbcs present Polychromasia Slight Anisocytosis Moderate (A) Poikilocytosis Slight (A) Macrocytes 3-7/HPF (A) Schistocytes 1-2/HPF (A) Acanthocytes 3-7/HPF (A) Teardrop cells 3-7/HPF (A) Platelet estimate Adequate ECG 12 lead Collection Time: 11/20/19 12:08 PM Result Value Ref Range Ventricular Rate EKG/Min 64 BPM Atrial Rate 64 BPM [place]-Interval (MSEC) 132 ms QRS-Interval (MSEC) 88 ms QT-Interval (MSEC) 404 ms QTc 416 ms P [place] 23 degrees R [place] 57 degrees T [place] 63 degrees Diagnosis Normal sinus rhythm Normal ECG When compared with ECG of 22-NOV-2018 18:30, Non-specific change in ST segment in Inferior leads T wave inversion no longer evident in Inferior leads Respiratory pathogen PCR Nasopharyngeal Collection Time: 11/20/19 12:31 PM Result Value Ref Range Adenovirus DNA Not Detected Not Detected Coronavirus 229E RNA Not Detected Not Detected Coronavirus HKU1 RNA Not Detected Not Detected Coronavirus NL63 RNA Not Detected Not Detected Coronavirus OC43 RNA Not Detected Not Detected Metapneumovirus RNA Not Detected Not Detected Rhinovirus/Enterovirus RNA Not Detected Not Detected Influenza A RNA Not Detected Not Detected Influenza B RNA Not Detected Not Detected Parainfluenza Virus 1 RNA Not Detected Not Detected Parainfluenza Virus 2 RNA Not Detected Not Detected Parainfluenza Virus 3 RNA Not Detected Not Detected Parainfluenza Virus 4 Not Detected Not Detected RSV RNA Not Detected Not Detected Bordetella pertussis DNA Not Detected Not Detected Chlamydophila pneumoniae DNA Not Detected Not Detected Mycoplasma pneumoniae DNA Not Detected Not Detected Bordetella parapertussis DNA Not Detected Not Detected Protime-INR Collection Time: 11/20/19 12:35 PM Result Value Ref Range PT 10.3 8.6 - 13.0 sec INR 1.0 0.8 - 1.2 aPTT Collection Time: 11/20/19 12:35 PM Result Value Ref Range aPTT 25 25 - 37 sec Type and screen Collection Time: 11/20/19 12:35 PM Result Value Ref Range Ursula, indirect Negative ABO Rh A Positive Fibrinogen Collection Time: 11/20/19 12:35 PM Result Value Ref Range Fibrinogen 322 170 - 400 mg/dL POCT glucose Collection Time: 11/20/19 1:18 PM Result Value Ref Range Glucose, POC 438 (H) 70 - 199 mg/dL POCT glucose Collection Time: 11/20/19 3:08 PM Result Value Ref Range Glucose, POC 279 (H) 70 - 199 mg/dL CBC: Recent Labs Lab Units 11/20/19 0945 WBC K/cumm 14.1* HEMOGLOBIN g/dL 14.2 HEMATOCRIT % 42.2 MCV fL 101.3* MCH pg 34.1* MCHC g/dL 33.6 RDW CV % 14.5 MPV fL 9.2 NEUTROS ABS K/cumm 8.6* CMP: Recent Labs Lab Units 11/20/19 1508 11/20/19 0929 SODIUM mmol/L -- -- 138 POTASSIUM PLASMA mmol/L -- -- 3.9 CO2 mmol/L -- -- 35* BUN SERUM mg/dL -- -- 15 GLUCOSE mg/dL -- -- 402* POC GLUCOSE MONITOR mg/dL 279* < > -- CREATININE mg/dL -- -- 0.74* CALCIUM mg/dL -- -- 9.4 CHLORIDE mmol/L -- -- 97 ALBUMIN g/dL -- -- 3.7 AST Units/L -- -- 18 ALT Units/L -- -- 30 ALK PHOS Units/L -- -- 118 BILIRUBIN TOTAL mg/dL -- -- 0.3 TOTAL PROTEIN g/dL -- -- 7.0 ANIONGAP mmol/L -- -- 6 < > = values in this interval not displayed. LDH: Recent Labs Lab Units 11/20/19 0929 LACTATE DEHYDROGENASE (LDH) Units/L 428* Uric Acid: Recent Labs Lab Units 11/20/19 0929 URIC ACID mg/dL 5.2 Tacrolimus level: Recent Labs Lab Units 11/20/19 0929 TACRO RANDOM ng/mL <1.0 Sirolimus level: Cyclosporine level: PT: Recent Labs Lab Units 11/20/19 1235 PROTIME (PT) sec 10.3 PTT: Recent Labs Lab Units 11/20/19 1235 APTT sec 25 Radiology: X-ray chest 1 view (Portable) Final Result Comparison to 08/22/2019. Redemonstrated are bilateral emphysematous changes with mild bibasilar atelectasis. The lungs are otherwise clear without focal consolidation or pulmonary edema. No definite pleural effusion or pneumothorax. Heart size and mediastinal contour are unchanged. Dictated by: Elsi Sweet M.D. The radiology attending physician has personally reviewed this study, and had reviewed and/or edited this written report and agrees with it. Electronically signed by: Candice Lara M.D. Transthoracic Echo Complete W Doppler/CF (Results Pending) Pulmonary Function Test -[facility] [place]; Spirometry with Bronchodilator (Results Pending) CT Chest W Contrast (Results Pending) Assessment/Plan Nervous Peripheral neuropathy Continue gabapentin Respiratory Shortness of breath Concern for poss GVHD and/or poss COPD exacerbation, HF. Recently discharged from OSH with 2L O2 - Recently admitted to OSH with similar symptoms, discharged on pred taper. Now with increased O2 requirement, increased MILLER. - TTE (09/2019) EF 55%. - RVP neg. Check Bld Cx - Rpt TTE, check chest CT, ordered PFT - See GVHD problem. - Pulm toilet?? COPD, severe (CMS/HCC) Continue inhalers Circulatory CHF (congestive heart failure) ([facility]/HCC) With diastolic dysfunction, new diagnosis. -Continue Lasix. Rpt TTE DVT (deep venous thrombosis) ([facility]/HCC) Continue xarelto Musculoskeletal Osteopenia Continue home vitamin D and dietary calcium Endocrine/Metabolic Pure hypercholesterolemia Continue statin Type 2 diabetes mellitus ([facility]/HCC) On basaglar 30 units AM and novolog 10 units TID with meals and SSI at home. No longer taking metformin at home - BG >400 on admit (pt stated he did not take his AM insulin). - Cont 30U Lantus, given steroid use and difficulty controlling glucose at home and in past hospitalizations. HD SSI. May need to add meal-time insulin based on glucose. - Hgb A1C 13 on admit. Hematologic 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) -??Induction with 7+3 and HiDAC consolidation x3??s/p decitabine maintenance on the CALGB 65713 protocol. -??Relapsed disease,??status post an allogeneic transplant with busulfan and Cytoxan on the AMD allogeneic study with his sister, 08/27 match; with day 0 on 11/09/2009.?? - Currently in remission. Follows with Dr. Del Valle - On tacro, cellcept - OI ppx: Cont acyclovir. Add vori given remains on immunosuppressives. Add bactrim (pt stated he was no longer taking). Immune Vrffr-sgtcuz-yjqr disease (CMS/HCC) Continue cellcept 1 g BID and tacrolimus??0.5 every other day. -??on prednisone 60 bid at admission (pred taper), continue dose for now - cont eye drops - Cont Pred 60 bid. Sent prior-auth to 7th floor pharm to check insurance approval for Selin. Discussed possible EAP with customer services coordinator if not approved. - Cont spiriva; albuterol PRN. Continue home advair. Added Azithro 250 3x/weekly Other Tobacco abuse Nicotine patch Iza Gordon NP Cosigned by Josué Del Valle MD PhD at 11/21/2019 10:[address] RAILWAY LINE INSTALLER ET RAILWAY LINE INSTALLER ET RAILWAY LINE INSTALLER Associated attestation - Josué Del Valle MD PhD - 11/21/2019 10:[address] RAILWAY LINE INSTALLER I have seen and examined the patient on 11/21/19 in conjunction with the non- physician provider. History: AML/cGvHD Physical Exam: GEN: no acute distress HEENT: no mucositis, anicteric sclera Pulm: clear to ausculation bilaterally CV: rate and rhythm regular ABD: soft, nondistended, nontender, bowel sounds active Skin: no rashes, lesions Ext: No edema Neuro: alert, oriented x 4 Assessment/Plan: Treat SOB and pneumonia and cGvHD of lungs/BOOP Josué Del Valle MD PhD documented in this encounter Consult Notes * Leni Potter MD - 11/23/2019 2:02 PM CSTAssociated Order(s): CONSULT TO ENDOCRINOLOGY DIABETES Endocrine Diabetes Inpatient Consult 11/23/2019 Bri Robert [id number] Kirt Lindsay DO CONSULTING PROVIDER: Leni Potter MD REQUESTING PROVIDER: Josué Del Valle MD REASON FOR CONSULTATION: Type 2 Diabetes The risks and benefits of my recommendations, as well as other treatment options were discussed with the patient today. Questions were answered. HISTORY OF PRESENT ILLNESS: Bri Jones is a 54 y.o. male with T2DM, AML s/p allogenic stem jori transplant, COPD,GVHD who presented with dyspnea and is on high doses of steroids. Patient was diagnosed with steroid induced diabetes in 2007. He had an episode of pancreatitis related to gallstones in 2012 and started on insulin at that time. He reports neuropathy in his feet butdenies any eye complications from diabetes or nephropathy. He follows with Dr. Gibson here. Most recently he is taking Lantus 30 units in the morning and NovoLog 10 units with meals. He reports adherence to his Lantus but will occasionally forget his NovoLog. On admission here his blood sugar was elevated to 400. He was started on prednisone 40 mg twice daily. His blood sugar has remained quite elevated and started on insulin drip this morning. His prednisone is planned to be tapered to 20 mg twice daily today. Blood sugar on admission was: Recent Labs Lab Units 11/23/19 1244 11/23/19 1145 11/23/19 1013 11/23/19 0823 11/23/19 0441 11/23/19 0307 11/23/19 0256 11/23/19 0106 11/22/19 2210 11/22/19 1734 GLUCOSE mg/dL -- -- -- -- -- 379* -- -- -- -- POC GLUCOSE MONITOR mg/dL 296* 407* 419* 449* 372* -- 404* 443* 418* 377* Most recent hemoglobin A1C was: Lab Results Component Value Date HGBA1C 13.5 (H) 11/20/2019 He has not symptoms of hyperglycemia prior to admission. The initial diagnosis of diabetes was made 2012. He is on steroids. He is not on pressors. Home diabetes regimen consists of: Prior to Admission medications Medication Sig Start Date End Date Taking? Authorizing Provider acyclovir (ZOVIRAX) 400 mg tablet TAKE 1 TABLET BY MOUTH EVERY 8 HOURS 03/10/19 Narcisa Kilgore NP ADVAIR DISKUS 100-50 mcg/dose diskus inhaler INHALE 1 DOSE BY MOUTH TWICE DAILY 04/06/19 Narcisa Kilgore NP atorvastatin (LIPITOR) 40 mg tablet Take 1 tablet (40 mg total) by mouth daily 02/11/19 Eneida Gibson MD BASAGLAR VIOLETTE U-100 INSULIN 100 unit/mL (3 mL) insulin pen INJECT 35 UNITS Q AM 08/25/19 Mari Singh MD blood glucose diagnostic strip Check blood sugar tid 07/01/19 Eneida Gibson MD blood-glucose meter misc 1 Device 3 (three) times a day 05/29/19 Eneida Gibson MD dextromethorphan-guaiFENesin (TUSSIN-DM) liquid 10-100 mg/5 mL Take 5 mL by mouth 2 (two) times a day as needed for cough 08/25/19 Mari Singh MD DOXYCYCLINE HYCLATE 100 mg capsule TAKE 1 CAPSULE BY MOUTH EVERY 12 HOURS 09/18/19 Historical Provider, ergocalciferol (VITAMIN D) 50,000 unit capsule Take 1 capsule (50,000 Units total) by mouth once a week 06/02/19 06/01/20 Eneida Gibson MD furosemide (LASIX) 20 mg tablet Take 1 tablet (20 mg total) by mouth daily As needed. 08/07/19 02/03/20 Eneida Gibson MD gabapentin (NEURONTIN) 300 mg capsule TAKE 1 PO QD 08/21/19 Eneida Gibson MD glucagon (glucagon) 1 mg kit USE DIRECTED AT SCHOOL AND HOME 12/14/13 Historical Provider, MD [place] INSULIN 100 unit/mL insulin pen INJECT 10 -16 UNITS BEFORE MEALS. 08/07/19 Eneida Gibson MD HYDROcodone-acetaminophen (NORCO) 5-325 mg per tablet Take 1 tablet by mouth every 6 (six) hours asneeded 10/17/19 Historical Provider, metFORMIN XR (GLUCOPHAGE XR) 500 mg 24 hr tablet Take 2 tablets (1,000 mg total) by mouth 2 (two) times a day 07/31/19 08/30/19 Eneida Gibson MD montelukast (SINGULAIR) 10 mg tablet Take 1 tablet (10 mg total) by mouth nightly. 12/17/18 12/17/19 Narcisa Kilgore, ARMEN mycophenolate mofetil (CELLCEPT) 500 mg tablet TAKE 2 TABLETS BY MOUTH TWICE DAILY 01/05/19 Josué Del Valle MD PhD nicotine (NICODERM CQ) [address] 1 patch on the skin daily 08/26/19 09/25/19 Mari Singh MD ofloxacin (OCUFLOX) 0.3 % ophthalmic solution Administer 1 drop into both eyes 2 (two) times a day 08/11/19 Ravi Hughes MD pen needle, diabetic 31 gauge x 5/16 needle Use to inject 1-4 times daily as directed. 11/24/18 11/24/19 Josefa Nur NP ruxolitinib (JAKAFI) 5 mg tablet Take 2 tablets (10 mg total) by mouth 2 (two) times a day Take at about the same time each day. Take with or without food. 11/20/19 12/20/19 Delmy Fong NP sildenafil, antihypertensive, (REVATIO) 20 mg tablet TAKE ONE TO FIVE TABLETS BY MOUTH DAILY NEEDED 05/01/19 Historical Provider, sodium chloride-sodium bicarbonate (NEILMED SINUS RINSE, AYR) packet with rinse device Administer 240 mL (1 packet total) into each nostril daily as needed (sinus congestion). 11/24/18 Josefa Nur NP sulfamethoxazole-trimethoprim (BACTRIM DS,SEPTRA DS) 800-160 mg per tablet TAKE 1 TABLET BY MOUTH TWICE DAILY ON Saturday. 04/18/19 Historical Provider, tacrolimus (PROGRAF) 0.5 mg capsule Take 1 capsule (0.5 mg total) by mouth every other day. 11/25/18 Josefa Nur NP tiotropium (SPIRIVA) 18 mcg per inhalation capsule Place 1 puff (1 capsule total) into inhaler and inhale daily 08/26/19 10/25/19 Mari Singh MD traMADol (ULTRAM) 50 mg tablet TAKE 1 TABLET BY MOUTH EVERY 6 HOURS NEEDED FOR PAIN (MAX OF 3 TABLETS PER DAY) 10/08/19 Historical Provider, MD PALM ELLIPCARMEN 100-62.5-25 mcg inhaler INHALE 1 PUFF BY INHALATION ROUTE ONCE DAILY AT THE SAME TIME EACH DAY. RINSE SPIT AFTER USE. DON T USE WITH OTHER INHALERS. STOP ADVAIR AND 10/02/19 Historical Provider, VENTOLIN HFA 90 mcg/actuation inhaler INHALE 1 TO 2 PUFFS BY MOUTH EVERY 4 HOURS NEEDED FOR SHORTNESS OF BREATH 09/23/19 Narcisa Kilgore NP XARELTO 20 mg tablet TAKE 1 TABLET BY MOUTH ONCE DAILY WITH FOOD 06/15/19 Josué Del Valle MD PhD Patient is eating. Compliance with diabetic therapy is estimated to be fair. Patient has never previously been in diabetic ketoacidosis. Patient has never had episodes of hypoglycemia which have required medical attention or secondary assistance. Hypoglycemia occurs 0 times a week. Diabetic complications include: peripheral neuropathy. Comorbidities include: HTN, HLD Past Medical History: Diagnosis Date ??? Personal history of leukemia History of acute myeloid leukemia - (Added by TW Conv) ??? Personal history of other diseases of the respiratory system History of pulmonary emphysema - (Added by TW Conv) ??? Personal history of other endocrine, nutritional and metabolic disease History of diabetes mellitus - (Added by TW Conv) ??? Personal history of other venous thrombosis and embolism H/O blood clots - (Added by TW Conv) ??? Visual disturbance Vision changes - (Added by TW Conv) Past Surgical History: Procedure Laterality Date ??? 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 FILTER N/A 07/16/2013 ??? 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 FILTER N/A 02/05/2013 ??? NJ TUBE PLACEMENT N/A 02/04/2013 ??? NJ TUBE PLACEMENT N/A 02/04/2013 ??? NJ TUBE PLACEMENT N/A 01/28/2013 ??? NJ TUBE PLACEMENT N/A 01/28/2013 Allergies Allergen Reactions ??? Adhesive Redness Family History Problem Relation Age of Onset ??? Heart disease Mother Family history of cardiac disorder - (Added by TW Conv) Social History Socioeconomic History ??? Marital status: Spouse name: Not on file ??? Number of children: Not on file ??? Years of education: Not on file ??? Highest education level: Not on file Occupational History ??? Not on file Social Needs ??? Financial resource strain: Not on file ??? Food insecurity: Worry: Not on file Inability: Not on file ??? Transportation needs: Medical: Not on file Non-medical: Not on file Tobacco Use ??? Smoking status: Current Every Day Smoker ??? Smokeless tobacco: Never Used ??? Tobacco comment: Pt not interested in smoking cessation program Substance and Sexual Activity ??? Alcohol use: Not on file ??? Drug use: Not on file ??? Sexual activity: Not on file Lifestyle ??? Physical activity: Days per week: Not on file Minutes per session: Not on file ??? Stress: Not on file Relationships ??? Social connections: Talks on phone: Not on file Gets together: Not on file Attends mormon service: Not on file Active member of club or organization: Not on file Attends meetings of clubs or organizations: Not on file Relationship status: Not on file ??? Intimate partner violence: Fear of current or ex partner: Not on file Emotionally abused: Not on file Physically abused: Not on file Forced sexual activity: Not on file Other Topics Concern ??? Not on file Social History Narrative : (Added by TW Conv) No alcohol use : (Added by TW Conv) Review of Systems Review of systems per HPI and otherwise all other systems are negative OBJECTIVE: Vitals: 11/22/19 2333 11/23/19 0445 11/23/19 0834 11/23/19 1202 BP: 126/77 126/74 130/75 140/68 BP Location: Left arm Left arm Left arm Left arm Patient Position: Lying Lying Lying Sitting Pulse: 77 66 80 87 Resp: 18 18 18 18 Temp: 36.5 ??C (97.7 ??F) 36.3 ??C (97.3 ??F) 36.4 ??C (97.5 ??F) 36.4 ??C (97.5 ??F) TempSrc: Oral Oral Oral Oral SpO2: 93% 98% 96% 92% Weight: Height: I/O this shift: In: 240 [P.O.:240] Out: 600 [Urine:600] Physical Exam General: Alert, no acute distress, laying in bed HENT: mucus membranes are moist, no oral lesions Eyes: Sclera anicteric, EOMI, no proptosis Neck: supple, no thyromegaly or nodules Lungs: normal effort, coarse Heart: regular rate, normal rhythm, no murmur appreciated Abdomen: soft, non-tender, non-distended Extremities: 2+ edema Neuro: grossly intact, alert and oriented x 3 Skin: No rash LAB/IMAGING: Recent Results (from the past 24 hour(s)) POCT glucose Collection Time: 11/22/19 5:34 PM Result Value Ref Range Glucose, POC 377 (H) 70 - 199 mg/dL POCT glucose Collection Time: 11/22/19 10:10 PM Result Value Ref Range Glucose, POC 418 (H) 70 - 199 mg/dL POCT glucose Collection Time: 11/23/19 1:06 AM Result Value Ref Range Glucose, POC 443 (H) 70 - 199 mg/dL POCT glucose Collection Time: 11/23/19 2:56 AM Result Value Ref Range Glucose, POC 404 (H) 70 - 199 mg/dL Type and screen Collection Time: 11/23/19 3:07 AM Result Value Ref Range ABO Rh A Positive Ursula, indirect Negative Comprehensive metabolic panel Collection Time: 11/23/19 3:07 AM Result Value Ref Range Sodium 131 (L) 135 - 145 mmol/L Potassium, pl See Comment 3.3 - 4.9 mmol/L Chloride 92 (L) 97 - 110 mmol/L CO2 29 22 - 32 mmol/L Anion gap 10 2 - 15 mmol/L BUN 29 (H) 8 - 25 mg/dL Creatinine 0.78 (L) 0.80 - 1.30 mg/dL Glucose 379 (H) 70 - 199 mg/dL Calcium 8.7 8.5 - 10.3 mg/dL Bilirubin, total 0.2 0.1 - 1.2 mg/dL Protein, pl 6.5 6.5 - 8.5 g/dL Albumin 3.2 (L) 3.5 - 5.0 g/dL Alk phos 100 40 - 130 Units/L ALT See Comment 7 - 55 Units/L AST See Comment 10 - 50 Units/L Uric acid Collection Time: 11/23/19 3:07 AM Result Value Ref Range Uric acid 4.6 3.0 - 8.0 mg/dL Lactate dehydrogenase (LD) Collection Time: 11/23/19 3:07 AM Result Value Ref Range Lactate dehydrogenase (LDH) See Comment 100 - 250 Units/L aPTT Collection Time: 11/23/19 3:07 AM Result Value Ref Range aPTT 29 25 - 37 sec Protime-INR Collection Time: 11/23/19 3:07 AM Result Value Ref Range PT 17.4 (H) 8.6 - 13.0 sec INR 1.6 (H) 0.8 - 1.2 CBC without differential Collection Time: 11/23/19 3:07 AM Result Value Ref Range WBC 20.6 (H) 3.8 - 9.9 K/cumm Hgb 12.1 (L) 13.0 - 17.5 g/dL Hct 36.1 (L) 38.9 - 50.3 % Plt 265 150 - 400 K/cumm MPV 11.4 9.1 - 12.3 fL RBC 3.62 (L) 4.30 - 5.80 M/cumm MCV 99.7 (H) 81.3 - 96.4 fL MCH 33.4 (H) 27.1 - 33.3 pg MCHC 33.5 32.3 - 35.7 g/dL RDW CV 13.7 11.1 - 14.9 % RDW SD 50.7 (H) 35.7 - 48.1 fL NRBC abs 0.61 (H) 0.00 - 0.01 K/cumm Manual Differential Collection Time: 11/23/19 3:07 AM Result Value Ref Range Differential Manual Cells Counted 113 Neutrophil abs 17.5 (H) 1.7 - 6.5 K/cumm Imm gran abs 0.4 (H) 0.0 - 0.1 K/cumm Lymphocyte abs 1.6 0.8 - 3.3 K/cumm Monocyte abs 1.1 (H) 0.2 - 0.8 K/cumm Neutrophil pct 84.9 % Lymphocyte pct 8.0 % Monocyte pct 5.3 % Neutrophilic metamyelocytes 0.9 (H) 0.0 - 0.0 % Myelocytes 0.9 % RBC morphology Normal Platelet estimate Adequate Magnesium Collection Time: 11/23/19 3:07 AM Result Value Ref Range Magnesium 1.8 1.4 - 2.5 mg/dL Phosphorus Collection Time: 11/23/19 3:07 AM Result Value Ref Range Phosphorus, pl 2.9 2.3 - 4.5 mg/dL POCT glucose Collection Time: 11/23/19 4:41 AM Result Value Ref Range Glucose, POC 372 (H) 70 - 199 mg/dL POCT glucose Collection Time: 11/23/19 8:23 AM Result Value Ref Range Glucose, POC 449 (H) 70 - 199 mg/dL POCT glucose Collection Time: 11/23/19 10:13 AM Result Value Ref Range Glucose, POC 419 (H) 70 - 199 mg/dL POCT glucose Collection Time: 11/23/19 11:45 AM Result Value Ref Range Glucose, POC 407 (H) 70 - 199 mg/dL POCT glucose Collection Time: 11/23/19 12:44 PM Result Value Ref Range Glucose, POC 296 (H) 70 - 199 mg/dL Lab Results Component Value Date TSH 1.02 05/29/2019 T3FREE 3.6 02/04/2017 FREET4 1.16 02/04/2017 Lab Results Component Value Date CORTISOL 20.8 12/18/2017 Lab Results Component Value Date CHOL 193 05/29/2019 TRIG 266 (H) 05/29/2019 HDL 74 05/29/2019 LDL 154 (H) 05/07/2016 Lab Results Component Value Date PTH 54 08/07/2019 Assessment/Plan CHF (congestive heart failure) ([facility]) Assessment & Plan Closely monitor blood sugar to avoid hypoglycemia Vitamin D deficiency Assessment & Plan Last vitamin-D level low at 16. Continue vitamin D2 67936 units weekly and vitamin D3 2000 units daily Pure hypercholesterolemia Assessment & Plan On atorvastatin 40 mg daily Type 2 diabetes mellitus ([facility]) Assessment & Plan Patient has uncontrolled type 2 diabetes with [...] basal/bolus, doses pending. Follows with endocrinology here. [id number] disease ([facility]) Assessment & Plan Starting on prednisone 20 twice daily today Leni Potter MD Endocrinology Fellow, PGY-5 Cosigned by Eneida Gibson MD at 11/23/2019 2:[address] RAILWAY LINE INSTALLER ET RAILWAY LINE INSTALLER ET RAILWAY LINE INSTALLER Associated attestation - Eneida Gibson MD - 11/23/2019 2:[address] RAILWAY LINE INSTALLER I have seen and examined the patient on 11/23/19. I agree with the findings and plan of care as documented in the resident's/fellow's note. 54 y.o. male with T2DM, AML s/p allogenic stem jori transplant, COPD, GVHD who presented with dyspnea and is on high doses of steroids for GVHD flare. His home insulin regimen consists of lantus 30 units daily and Humalog 10 units with meals. He was started on an insulin drip this morning for severe hyperglycemia. His appetite is good. Prednisone will be decreased to 20 mg BID starting tonight. Plan: will transition off insulin drip with NPH 15 units now; will start lantus 40 units tonight, Lispro 15 units with meals and NPH 15 units BID with prednisone 20 mg. He is interested in an insulin pump. I explained to him that he first needs to prove that he is compliant with insulin injections and he is able to improve his Hgb A1C. We will readdress at his next visit. * Silva Londono, YONY - 11/21/2019 10:55 AM CSTAssociated Order(s): IP CONSULT TO NUTRITION SERVICES Nutrition Assessment Reason for Assessment: Consult/Referral Encounter Date: 11/21/19 10:56 AM Patient is a 54 y.o. male with chief complaint of SOB. LOS is 1 days. 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 Recently diagnosed with CHF. Objective Past Medical History: Diagnosis Date ??? Personal history of leukemia History of acute myeloid leukemia - (Added by TW Conv) ??? Personal history of other diseases of the respiratory system History of pulmonary emphysema - (Added by TW Conv) ??? Personal history of other endocrine, nutritional and metabolic disease History of diabetes mellitus - (Added by TW Conv) ??? Personal history of other venous thrombosis and embolism H/O blood clots - (Added by TW Conv) ??? Visual disturbance Vision changes - (Added by TW Conv) Past Surgical History: Procedure Laterality Date ??? 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 FILTER N/A 07/16/2013 ??? 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 FILTER N/A 02/05/2013 ??? NJ TUBE PLACEMENT N/A 02/04/2013 ??? NJ TUBE PLACEMENT N/A 02/04/2013 ??? NJ TUBE PLACEMENT N/A 01/28/2013 ??? NJ TUBE PLACEMENT N/A 01/28/2013 Social History Tobacco Use ??? Smoking status: Current Every Day Smoker ??? Smokeless tobacco: Never Used ??? Tobacco comment: Pt not interested in smoking cessation program Substance Use Topics ??? Alcohol use: Not on file Family History Problem Relation Age of Onset ??? Heart disease Mother Family history of cardiac disorder - (Added by TW Conv) Anthropometrics: Wt Readings from Last 3 Encounters: 11/20/19 77.6 kg (171 lb) 11/20/19 77.4 kg (170 lb 9.6 oz) 08/24/19 79.4 kg (175 lb) Anthropometrics Weight: 77.6 kg (171 lb) Admission Weight : 77.4 kg Weight Change: 0.16 kg (0.36 lbs) IBW/kg (Calculated) : 75.3 kg Height: 177.8 cm (5' 10 ) Weight in (lb) to have BMI = 25: 173.9 BMI (Calculated): 24.5 Nutrition Needs Calculations: Calculated Energy Needs Using Equations Weight: 77.6 kg (171 lb) Height: 177.8 cm (5' 10 ) Temp: 36.5 ??C (97.7 ??F) Estimated Protein Needs Type of Weight Used for Estimated Protein : [place] Protein Needs Based on g/k.2 Total Protein Estimated Needs (gm): 90.36 Kcal/kg Type of Weight Used for Estimated Kcals: [place] Kcal/k Total Kcal/kg Estimated Needs : 2259 Vital Signs: BP: 109/69 Temp: 36.5 ??C (97.7 ??F) Pulse: 69 Resp: 20 SpO2: 98 % Medications: Scheduled Meds: acyclovir, 400 mg, oral, Q8H atorvastatin, 40 mg, oral, Daily azithromycin, 250 mg, oral, Once per day on Sat cefepime, 2,000 mg, intravenous, Q12H ROSA MARIA ergocalciferol, 50,000 Units, oral, Weekly fluticasone propion-salmeterol, 1 puff, inhalation, BID furosemide, 20 mg, oral, Daily gabapentin, 300 mg, oral, QID heparin flush (porcine), 5 mL, intra-catheter, Q12H ROSA MARIA insulin glargine, 30 Units, subcutaneous, QAM insulin lispro, 1-4 Units, subcutaneous, Nightly insulin lispro, 1-7 Units, subcutaneous, TID with meals insulin lispro, 12 Units, subcutaneous, TID with meals montelukast, 10 mg, oral, Nightly mycophenolate mofetil, 1,000 mg, oral, BID nicotine, 1 patch, transdermal, Daily ofloxacin, 1 drop, each eye, BID predniSONE, 40 mg, oral, BID rivaroxaban, 20 mg, oral, Daily with dinner sodium chloride 0.9 %, 30 mL, swish & spit, QID sodium chloride 0.9%, 0.5-20 mL, intra-catheter, Q8H ROSA MARIA [START ON 11/23/2019] sulfamethoxazole-trimethoprim, 160 mg of trimethoprim, oral, 2 times per day onSat tacrolimus, 0.5 mg, oral, Every other day [START ON 11/22/2019] tiotropium, 1 capsule, inhalation, Daily vancomycin, 15 mg/kg, intravenous, Q12H voriCONAZOLE, 200 mg, oral, BID Continuous Infusions: sodium chloride 0.9%, 30 mL/hr, Last Rate: 30 mL/hr (11/21/19 0600) sodium chloride 0.9%, 0-250 mL PRN Meds: ??? acetaminophen ??? acetaminophen ??? albuterol ??? albuterol HFA ? ? aluminum & magnesium zulwlcvxk-dkgkuxbozxy-bnlipsgfffphaoi-lidocaine (MAGIC MOUTHWASH) suspension ??? bacitracin-polymyxin B ??? camphor-menthol ??? dextrose OR dextrose ??? glucagon ??? heparin flush (porcine) ??? loperamide ??? magnesium sulfate ??? magnesium sulfate ??? oxyCODONE ??? lubricant ??? potassium chloride ??? potassium chloride ER ??? pramoxine-zinc oxide ??? sodium chloride ??? sodium chloride 0.9% ??? sodium chloride 0.9% ??? sodium chloride 0.9% ??? white petrolatum-mineral oil Lab Review: Sodium Date Value Ref Range Status 11/21/2019 132 (L) 135 - 145 mmol/L Final Potassium, pl Date Value Ref Range Status 11/21/2019 5.3 (H) 3.3 - 4.9 mmol/L Final BUN Date Value Ref Range Status 11/21/2019 22 8 - 25 mg/dL Final Creatinine Date Value Ref Range Status 11/21/2019 0.79 (L) 0.80 - 1.30 mg/dL Final Phosphorus, pl Date Value Ref Range Status 11/21/2019 4.6 (H) 2.3 - 4.5 mg/dL Final Albumin Date Value Ref Range Status 11/20/2019 3.7 3.5 - 5.0 g/dL Final Magnesium Date Value Ref Range Status 11/21/2019 1.8 1.4 - 2.5 mg/dL Final Calcium Date Value Ref Range Status 11/21/2019 9.2 8.5 - 10.3 mg/dL Final ALT Date Value Ref Range Status 11/20/2019 30 7 - 55 Units/L Final AST Date Value Ref Range Status 11/20/2019 18 10 - 50 Units/L Final Alk phos Date Value Ref Range Status 11/20/2019 118 40 - 130 Units/L Final Lab Results Component Value Date HGBA1C 13.5 (H) 11/20/2019 HDL 74 05/29/2019 LDLCALC 66 05/29/2019 CHOL 193 05/29/2019 TRIG 266 (H) 05/29/2019 Nursing Assessment: Intake/Output Summary (Last 24 hours) at 11/21/2019 1056 Last data filed at 11/21/2019 1050 Gross per 24 hour Intake 2583.31 ml Output 1925 ml Net 658.31 ml Gastrointestinal Gastrointestinal (WDL): Within Defined Limits Abdomen Inspection: Soft, Rounded Bowel Sounds (All Quadrants): Active Palpation: Soft, Nontender Last BM Date: 11/19/19 Passing Flatus: Yes Last BM Date: 11/19/19 Rolf Scale Score: 19 Skin Integrity: Redness Oral Mucosa Grade: Normal (0) Dietary Orders (From admission, onward) Start Ordered 11/21/19915 Adult Diet Restricted; Consistent Carbohydrate Continuous Question Answer Comment ([facility]) Diet type Restricted Diabetic: Consistent Carbohydrate 11/21/19915 Impression: Pt seen for nutrition consult. He denies N/V/D/C as well as any taste changes, mouth sores, or chewing/swallowing issues. He has not eaten yet as he remains NPO until his insulin is adjusted appropriately. BG remains >300. Hgb A1c=13.5%. Pt reports receiving DM ed in the past and is able to citesources of carbs and what foods have little to no carbs. He reports trying to reduce carb intake at home, but does cheat. He grazes on food at home. Checks BG regularly per his reports. Pt is edentulous and has to eat mostly soft foods. UBW is 150#, noted +3 BLE edema likely contributing to weight gain Wt Readings from Last 15 Encounters: 11/20/19 77.6 kg (171 lb) 11/20/19 77.4 kg (170 lb 9.6 oz) 08/24/19 79.4 kg (175 lb) 08/07/19 73 kg (161 lb) 05/29/19 67.9 kg (149 lb 9.6 oz) 11/24/18 71.7 kg (158 lb) 10/27/18 70 kg (154 lb 6.4 oz) 08/01/18 62.3 kg (137 lb 4.8 oz) 07/28/18 62.6 kg (138 lb) 06/06/18 63.7 kg (140 lb 6.4 oz) 03/14/18 60.4 kg (133 lb 3.2 oz) 02/24/18 60 kg (132 lb 4.1 oz) 12/27/17 58.1 kg (128 lb) 12/18/17 54.9 kg (121 lb 0.2 oz) 05/31/17 63 kg (139 lb) NUTRITION DIAGNOSIS Nutrition Diagnosis 1: Altered nutrition-related laboratory values Related to: Physiologic issue Evidenced by: Lab abnormality(BG >300, Hgb A1c=13.5%) INTERVENTION Advance diet when medically appropriate to consistent CHO. Can remove carb restriction if BG are consistently <300. May also benefit from 2g Na restriction to help prevent fluid retention Monitor BG Offered DM ed, but pt reports receiving in the past and does appear to be familiar with carb containing foods RD will continue to monitor GOALS / MONITORING: Goals: Adequate nutrition to meet estimated needs by next assessment, Advance to oral intake as medically able, Oral intake to meet 75% estimated nutritional needs by next assessment Interventions: Communication, Encouragement, Meals and snacks Monitoring and Evaluation: Appetite, Blood glucoses, Diet advancement, Electrolyte changes, Labs, Plan of care, PO intake, Weight changes, Stool patterns Silva Londono RD, LD, [facility] ET RA[employer]WAY LINE INSTALLER documented in this encounter Nursing Notes * Regi Oro RN - 11/28/2019 1:29 PM CST Pt discharged by wheelchair to home. Pt accompanied to car. Pt given discharge instructions, follow-up appointment information, and medications. Personal belongings sent with pt. Pt stated that he had no questions at this time. Pt stable upon discharge. Aware voriconazole was sent to [facility] pharmacy. Denies any further needs at this time. ET RAILWAY LINE INSTALLER * Yasmeen Solis RN - 11/27/2019 6:01 PM CST Pt's blood glucose at 1706 307. FUR TRIMMER Iza Boo notified. Ok to give 7 units on max sliding scale plus standing 15 units to total 22 units. Recheck at next scheduled time, prior to bed or with a snack. ET RAILWAY LINE INSTALLER * Ish Cavazos RN - 11/20/2019 4:53 PM CST Clinical alert on new admission to BMT. Floor to call with any concerns or assistance needed. ET RAILWAY LINE INSTALLER documented in this encounter Miscellaneous Notes * Plan of Care - Regi Oro RN - 11/28/2019 1:15 PM CST Problem: Activity: Goal: Ability to implement measures to reduce episodes of fatigue will improve Outcome: Adequate for Discharge Problem: Bowel/Gastric: Goal: Will not experience complications related to bowel motility Outcome: Adequate for Discharge Problem: Fluid Volume: Goal: Will maintain adequate fluid volume Outcome: Adequate for Discharge Problem: Medication: Goal: Compliance with prescribed medication regimen will improve Outcome: Adequate for Discharge Goal: Risk for medication side effects will decrease Outcome: Adequate for Discharge Problem: Respiratory: Goal: Ability to maintain adequate ventilation will improve Outcome: Adequate for Discharge Problem: Sensory: Goal: General experience of comfort will improve Outcome: Adequate for Discharge Problem: Skin Integrity: Goal: Risk for impaired skin integrity will decrease Outcome: Adequate for Discharge Problem: Health Behavior: Goal: Understanding of discharge needs will improve Outcome: Adequate for Discharge Goals: Clinical Goals for the Shift: control blood sugars, vss, free from falls Summary: Patient meets criteria for discharge. Will be transported home by roommate. Oxygen at homesufficient to meet needs and states tank of oxygen available for transport home. VS remain stable. ET RAILWAY LINE INSTALLER * Assessment & Plan Note - Kiarra Spaulding MD - 11/28/2019 10:29 AM CSTAssociated Problem(s): Vitamin D deficiency Last vitamin-D level low at 16. Continue vitamin D2 66749 units weekly and vitamin D3 2000 units daily ET RAILWAY LINE INSTALLER * Assessment & Plan Note - Kiarra Spaulding MD - 11/28/2019 10:27 AM CSTAssociated Problem(s): Type 2 diabetes mellitus (HCC) Patient has uncontrolled type 2 diabetes with [...] up with Dr. Elizondo and diabetes education. ET RAILWAY LINE INSTALLER ET RAILWAY LINE INSTALLER * Assessment & Plan Note - Kiarra Spaulding MD - 11/28/2019 10:27 AM CSTAssociated Problem(s): Pure hypercholesterolemia On atorvastatin 40 mg daily ET RAILWAY LINE INSTALLER * Assessment & Plan Note - Kiarra Spaulding MD - 11/28/2019 10:27 AM CSTAssociated Problem(s): Zmova-tjuitf-awvo disease (HCC) Prednisone decreased to 20 mg daily ET RAILWAY LINE INSTALLER * Assessment & Plan Note - Kiarra Spaulding MD - 11/28/2019 10:27 AM CSTAssociated Problem(s): CHF (congestive heart failure) (CMS/HCC) (HCC) Closely monitor blood sugar to avoid hypoglycemia ET RAILWAY LINE INSTALLER * Subjective & Objective - Kiarra Spaulding MD - 11/28/2019 10:25 AM CST Endocrine Diabetes Inpatient Follow Up 11/28/2019 Bri Jones [id number] Kirt Lindsay DO Admit Date: 11/20/2019 Length of Stay: 8 SUBJECTIVE: Bri Jones??is a 54 y.o.?male??with T2DM, AML s/p allogenic stem jori transplant, COPD, GVHD who presented with dyspnea and is on high doses of steroids.? Interval: Feeling well this AM. Good appetite. No nausea/vomiting. BG began to increase around time NPH was wearing off yesterday evening. Up to 413 at bedtime. Primary team planning for discharge home today. Blood sugar: Recent Labs Lab Units 11/28/19 0826 11/28/19 0329 11/27/19 2222 11/27/19 1706 11/27/19 1119 11/27/19 0717 11/27/19 0456 11/26/19 2052 11/26/19 1638 11/26/19 1146 GLUCOSE mg/dL -- 293* -- -- -- -- 254* -- -- -- POC GLUCOSE MONITOR mg/dL 185 -- 413* 307* 123 201* -- 254* 282* 271* Dietary Orders (From admission, onward) Start Ordered 11/23/19 0716 Adult Diet Restricted; Consistent Carbohydrate Diet effective now Question Answer Comment ([facility]) Diet type Restricted Diabetic: Consistent Carbohydrate 11/23/19 0715 OBJECTIVE: Vitals: 11/27/19 2341 11/28/19 0323 11/28/19 0807 11/28/19 1004 BP: 129/75 115/72 BP Location: Left arm Left arm Patient Position: Lying Sitting Pulse: 76 85 Resp: 20 18 Temp: 36.5 ??C (97.7 ??F) 36.4 ??C (97.5 ??F) TempSrc: Oral Oral SpO2: 95% 95% 98% 100% Weight: Height: I/O this shift: In: - Out: 600 [Urine:600] Physical Exam General Appearance: alert, cooperative, in no acute distress, appears stated age, well-developed, well-nourished HENT: normocephalic, atraumatic, moist mucus membranes Eyes: EOMI, conjunctiva clear, anicteric sclera. Lungs: clear to auscultation bilaterally, respirations non-labored Cardiovascular: regular rate and rhythm, no murmurs, rubs, or gallops. No LE edema Abdominal: soft, non-tender, non-distended, bowel sounds active Extremities: atraumatic, no cyanosis or edema Skin: turgor normal, no rashes Neurologic: alert, speech fluent, comprehension intact, moving all extremities Psychologic: cooperative, appropriate affect and mood LAB/IMAGING: Recent Results (from the past 24 hour(s)) Potassium Collection Time: 11/27/19 10:33 AM Result Value Ref Range Potassium, pl 5.9 (H) 3.3 - 4.9 mmol/L Vancomycin, trough Collection Time: 11/27/19 10:33 AM Result Value Ref Range Vancomycin, trough 11.1 10.0 - 20.9 mcg/mL POCT glucose Collection Time: 11/27/19 11:19 AM Result Value Ref Range Glucose, POC 123 70 - 199 mg/dL POCT glucose Collection Time: 11/27/19 5:06 PM Result Value Ref Range Glucose, POC 307 (H) 70 - 199 mg/dL POCT glucose Collection Time: 11/27/19 10:22 PM Result Value Ref Range Glucose, POC 413 (H) 70 - 199 mg/dL Magnesium Collection Time: 11/28/19 3:29 AM Result Value Ref Range Magnesium 2.0 1.4 - 2.5 mg/dL Phosphorus Collection Time: 11/28/19 3:29 AM Result Value Ref Range Phosphorus, pl 3.7 2.3 - 4.5 mg/dL Basic metabolic panel Collection Time: 11/28/19 3:29 AM Result Value Ref Range Sodium 134 (L) 135 - 145 mmol/L Potassium, pl See Comment 3.3 - 4.9 mmol/L Chloride 99 97 - 110 mmol/L CO2 30 22 - 32 mmol/L Anion gap 5 2 - 15 mmol/L BUN 39 (H) 8 - 25 mg/dL Creatinine 0.92 0.80 - 1.30 mg/dL Glucose 293 (H) 70 - 199 mg/dL Calcium 9.3 8.5 - 10.3 mg/dL CBC without differential Collection Time: 11/28/19 3:29 AM Result Value Ref Range WBC 29.8 (H) 3.8 - 9.9 K/cumm Hgb 12.1 (L) 13.0 - 17.5 g/dL Hct 38.0 (L) 38.9 - 50.3 % Plt 270 150 - 400 K/cumm MPV 10.7 9.1 - 12.3 fL RBC 3.66 (L) 4.30 - 5.80 M/cumm MCV 103.8 (H) 81.3 - 96.4 fL MCH 33.1 27.1 - 33.3 pg MCHC 31.8 (L) 32.3 - 35.7 g/dL RDW CV 14.8 11.1 - 14.9 % RDW SD 55.8 (H) 35.7 - 48.1 fL NRBC abs 1.79 (H) 0.00 - 0.01 K/cumm Manual Differential Collection Time: 11/28/19 3:29 AM Result Value Ref Range Differential Manual Cells Counted 116 Neutrophil abs 24.2 (H) 1.7 - 6.5 K/cumm Imm gran abs 0.0 0.0 - 0.1 K/cumm Lymphocyte abs 4.9 (H) 0.8 - 3.3 K/cumm Monocyte abs 0.8 0.2 - 0.8 K/cumm Neutrophil pct 81.0 % Lymphocyte pct 16.4 % Monocyte pct 2.6 % RBC morphology Present (A) Anisocytosis Slight (A) Poikilocytosis Slight (A) Macrocytes 3-7/HPF (A) Platelet estimate Adequate POCT glucose Collection Time: 11/28/19 8:26 AM Result Value Ref Range Glucose, POC 185 70 - 199 mg/dL Potassium, whole blood Collection Time: 11/28/19 8:27 AM Result Value Ref Range Potassium, bld 3.8 3.3 - 4.9 mmol/L Lab Results Component Value Date TSH 1.02 05/29/2019 T3FREE 3.6 02/04/2017 FREET4 1.16 02/04/2017 Lab Results Component Value Date CORTISOL 20.8 12/18/2017 No results found for: CPEPTIDE Lab Results Component Value Date CHOL 193 05/29/2019 TRIG 266 (H) 05/29/2019 HDL 74 05/29/2019 LDL 154 (H) 05/07/2016 Lab Results Component Value Date PTH 54 08/07/2019 ET RAILWAY LINE INSTALLER * Plan of Shannon - Betty Montemayor RN - 11/28/2019 4:13 AM CST Goals: Clinical Goals for the Shift: control blood sugars, vss, free from falls Summary: Pt rested comfortably throughout the night. Pt reported feeling tight chested and requested a breathing treatment. Pt tolerated well and reports feeling better. VSS and pt is eager to be dc home today. WTC. Problem: Activity: Goal: Ability to implement measures to reduce episodes of fatigue will improve Outcome: Progressing Problem: Bowel/Gastric: Goal: Will not experience complications related to bowel motility Outcome: Progressing Problem: Fluid Volume: Goal: Will maintain adequate fluid volume Outcome: Progressing Problem: Medication: Goal: Compliance with prescribed medication regimen will improve Outcome: Progressing Goal: Risk for medication side effects will decrease Outcome: Progressing Problem: Respiratory: Goal: Ability to maintain adequate ventilation will improve Outcome: Progressing Problem: Sensory: Goal: General experience of comfort will improve Outcome: Progressing Problem: Skin Integrity: Goal: Risk for impaired skin integrity will decrease Outcome: Progressing Problem: Health Behavior: Goal: Understanding of discharge needs will improve Outcome: Progressing ET RAILWAY LINE INSTALLER * Plan of Care - Rogers Lagos RN - 11/27/2019 4:44 PM CST All Medication are Ready For [facility] with O C/o Pay. ET RAILWAY LINE INSTALLER * Assessment & Plan Note - Leni Potter MD - 11/27/2019 1:[address] RAILWAY LINE INSTALLER Associated Problem(s): CHF (congestive heart failure) (CMS/HCC) ([facility]) Closely monitor blood sugar to avoid hypoglycemia ET RAILWAY LINE INSTALLER * Assessment & Plan Note - Leni Potter MD - 11/27/2019 1:[address] RAILWAY LINE INSTALLER Associated Problem(s): Vitamin D deficiency Last vitamin-D level low at 16. Continue vitamin D2 13090 units weekly and vitamin D3 2000 units daily ET RAILWAY LINE INSTALLER * Assessment & Plan Note - Leni Potter MD - 11/27/2019 1:[address] RAILWAY LINE INSTALLER Associated Problem(s): Pure hypercholesterolemia On atorvastatin 40 mg daily ET RAILWAY LINE INSTALLER * Assessment & Plan Note - Leni Potter MD - 11/27/2019 1:[address] RAILWAY LINE INSTALLER Associated Problem(s): Type 2 diabetes mellitus (HCC) Patient has uncontrolled type 2 diabetes with [...] up with Dr. Elizondo and diabetes education. ET RAILWAY LINE INSTALLER * Assessment & Plan Note - Leni Potter MD - 11/27/2019 1:[address] RAILWAY LINE INSTALLER Associated Problem(s): Lymxj-ueiirq-zbmw disease (HCC) Prednisone decreased to 20 mg daily ET RAILWAY LINE INSTALLER * Subjective & Objective - Leni Potter MD - 11/27/2019 1:[address] RAILWAY LINE INSTALLER Endocrine Diabetes Inpatient Follow Up 11/27/2019 Bri Jones [id number] Kirt Lindsay DO Admit Date: 11/20/2019 Length of Stay: 7 SUBJECTIVE: Bri Jones is a 54 y.o. male with T2DM, AML s/p allogenic stem jori transplant, COPD,GVHD who presented with dyspnea and is on high doses of steroids. Interval: Feeling well this AM. Said he has some crackers/peanut butter last night and received insulin. Goodappetite. No nausea/vomiting. Blood sugar: Recent Labs Lab Units 11/27/19 1119 11/27/19 0717 11/27/19 0456 11/26/19 2052 11/26/19 1638 11/26/19 1146 11/26/19 0711 11/26/19 0423 11/25/19 2333 11/25/19 2057 GLUCOSE mg/dL -- -- 254* -- -- -- -- 274* -- -- POC GLUCOSE MONITOR mg/dL 123 201* -- 254* 282* 271* 312* -- 202* 272* Review of Systems Review of systems per HPI and otherwise all other systems are negative OBJECTIVE: Vitals: 11/26/19 2350 11/27/19 0455 11/27/19 0804 11/27/19 1158 BP: 130/77 130/75 160/77 122/70 BP Location: Right arm Left arm Patient Position: Sitting Sitting Pulse: 75 71 84 81 Resp: 18 20 Temp: 36.4 ??C (97.5 ??F) 36.5 ??C (97.7 ??F) 36.6 ??C (97.9 ??F) 36.4 ??C (97.5 ??F) TempSrc: Oral Oral Oral Oral SpO2: 93% 99% 94% 93% Weight: Height: I/O this shift: In: 1000 [P.O.:1000] Out: 900 [Urine:900] Physical Exam General: Alert, no acute distress, sitting up in bed HENT: mucus membranes are moist, no oral lesions Eyes: Sclera anicteric, EOMI, no proptosis Lungs: normal effort, coarse Heart: regular rate, normal rhythm, no murmur Abdomen: soft, non-tender, mildly distended Extremities: 1+ edema Neuro: grossly intact, alert and oriented x 3 Skin: No rash LAB/IMAGING: Recent Results (from the past 24 hour(s)) POCT glucose Collection Time: 11/26/19 4:38 PM Result Value Ref Range Glucose, POC 282 (H) 70 - 199 mg/dL POCT glucose Collection Time: 11/26/19 8:52 PM Result Value Ref Range Glucose, POC 254 (H) 70 - 199 mg/dL Magnesium Collection Time: 11/27/19 4:56 AM Result Value Ref Range Magnesium 2.0 1.4 - 2.5 mg/dL Phosphorus Collection Time: 11/27/19 4:56 AM Result Value Ref Range Phosphorus, pl 3.0 2.3 - 4.5 mg/dL Basic metabolic panel Collection Time: 11/27/19 4:56 AM Result Value Ref Range Sodium 136 135 - 145 mmol/L Potassium, pl See Comment 3.3 - 4.9 mmol/L Chloride 103 97 - 110 mmol/L CO2 27 22 - 32 mmol/L Anion gap 6 2 - 15 mmol/L BUN 31 (H) 8 - 25 mg/dL Creatinine 0.85 0.80 - 1.30 mg/dL Glucose 254 (H) 70 - 199 mg/dL Calcium 8.8 8.5 - 10.3 mg/dL CBC without differential Collection Time: 11/27/19 4:56 AM Result Value Ref Range WBC 27.7 (H) 3.8 - 9.9 K/cumm Hgb 11.7 (L) 13.0 - 17.5 g/dL Hct 35.9 (L) 38.9 - 50.3 % Plt 266 150 - 400 K/cumm MPV 10.8 9.1 - 12.3 fL RBC 3.48 (L) 4.30 - 5.80 M/cumm MCV 103.2 (H) 81.3 - 96.4 fL MCH 33.6 (H) 27.1 - 33.3 pg MCHC 32.6 32.3 - 35.7 g/dL RDW CV 14.6 11.1 - 14.9 % RDW SD 54.6 (H) 35.7 - 48.1 fL NRBC abs 2.34 (H) 0.00 - 0.01 K/cumm Manual Differential Collection Time: 11/27/19 4:56 AM Result Value Ref Range Differential Manual Cells Counted 115 Neutrophil abs 21.4 (H) 1.7 - 6.5 K/cumm Imm gran abs 0.0 0.0 - 0.1 K/cumm Lymphocyte abs 5.1 (H) 0.8 - 3.3 K/cumm Monocyte abs 1.2 (H) 0.2 - 0.8 K/cumm Neutrophil pct 77.4 % Lymphocyte pct 18.3 % Monocyte pct 4.3 % RBC morphology Present (A) Anisocytosis Moderate (A) Poikilocytosis Slight (A) Macrocytes 8-15/HPF (A) Schistocytes 1-2/HPF (A) Platelet estimate Adequate POCT glucose Collection Time: 11/27/19 7:17 AM Result Value Ref Range Glucose, POC 201 (H) 70 - 199 mg/dL Potassium Collection Time: 11/27/19 10:33 AM Result Value Ref Range Potassium, pl 5.9 (H) 3.3 - 4.9 mmol/L Vancomycin, trough Collection Time: 11/27/19 10:33 AM Result Value Ref Range Vancomycin, trough 11.1 10.0 - 20.9 mcg/mL POCT glucose Collection Time: 11/27/19 11:19 AM Result Value Ref Range Glucose, POC 123 70 - 199 mg/dL Lab Results Component Value Date TSH 1.02 05/29/2019 T3FREE 3.6 02/04/2017 FREET4 1.16 02/04/2017 Lab Results Component Value Date CORTISOL 20.8 12/18/2017 Lab Results Component Value Date CHOL 193 05/29/2019 TRIG 266 (H) 05/29/2019 HDL 74 05/29/2019 LDL 154 (H) 05/07/2016 Lab Results Component Value Date PTH 54 08/07/2019 ET RAILWAY LINE INSTALLER * Plan of Shannon - Yasmeen Solis RN - 11/27/2019 7:46 AM CST Goals: Remain free of falls. Keep BS under control. Summary: Problem: Activity: Goal: Ability to implement measures to reduce episodes of fatigue will improve Outcome: Progressing Problem: Bowel/Gastric: Goal: Will not experience complications related to bowel motility Outcome: Progressing Problem: Fluid Volume: Goal: Will maintain adequate fluid volume Outcome: Progressing Problem: Medication: Goal: Compliance with prescribed medication regimen will improve Outcome: Progressing Goal: Risk for medication side effects will decrease Outcome: Progressing Problem: Respiratory: Goal: Ability to maintain adequate ventilation will improve Outcome: Progressing Problem: Respiratory: Goal: Ability to maintain adequate ventilation will improve Outcome: Progressing Problem: Sensory: Goal: General experience of comfort will improve Outcome: Progressing Problem: Skin Integrity: Goal: Risk for impaired skin integrity will decrease Outcome: Progressing ET RAILWAY LINE INSTALLER * Plan of [place] - Narcisa Rivero RN - 11/27/2019 2:29 AM CST Problem: Activity: Goal: Ability to implement measures to reduce episodes of fatigue will improve Outcome: Progressing Problem: Bowel/Gastric: Goal: Will not experience complications related to bowel motility Outcome: Progressing Problem: Fluid Volume: Goal: Will maintain adequate fluid volume Outcome: Progressing Problem: Medication: Goal: Compliance with prescribed medication regimen will improve Outcome: Progressing Goal: Risk for medication side effects will decrease Outcome: Progressing Problem: Respiratory: Goal: Ability to maintain adequate ventilation will improve Outcome: Progressing Problem: Sensory: Goal: General experience of comfort will improve Outcome: Progressing Problem: Skin Integrity: Goal: Risk for impaired skin integrity will decrease Outcome: Progressing Problem: Health Behavior: Goal: Understanding of discharge needs will improve Outcome: Progressing Goals: Clinical Goals for the Shift: control BG, sleep well overnight. remain free of falls. vss Summary: BG controlled better overnight. Having chronic back pain relieved by oxy. 1 breathing treatment overnight. ET RAILWAY LINE INSTALLER * Plan of [place] - Rosy Hidalgo RN - 11/26/2019 6:06 PM CST Problem: Activity: Goal: Ability to implement measures to reduce episodes of fatigue will improve Outcome: Progressing Problem: Bowel/Gastric: Goal: Will not experience complications related to bowel motility Outcome: Progressing Problem: Fluid Volume: Goal: Will maintain adequate fluid volume Outcome: Progressing Problem: Medication: Goal: Compliance with prescribed medication regimen will improve Outcome: Progressing Goal: Risk for medication side effects will decrease Outcome: Progressing Problem: Respiratory: Goal: Ability to maintain adequate ventilation will improve Outcome: Progressing Problem: Sensory: Goal: General experience of comfort will improve Outcome: Progressing Problem: Skin Integrity: Goal: Risk for impaired skin integrity will decrease Outcome: Progressing Problem: Health Behavior: Goal: Understanding of discharge needs will improve Outcome: Progressing Goals: Clinical Goals for the Shift: Patient will remain free from falls/injury, maintain adequate PO intake/OOB activity, and monitor blood sugars. Summary: Patient feeling well and anticipated discharge date Saturday, pending walking O2 assessment. ET RAILWAY LINE INSTALLER * Assessment & Plan Note - Leni Potter MD - 11/26/2019 5:[address] RAILWAY LINE INSTALLER Associated Problem(s): CHF (congestive heart failure) (CMS/HCC) (HCC) Closely monitor blood sugar to avoid hypoglycemia ET RAILWAY LINE INSTALLER * Assessment & Plan Note - Leni Potter MD - 11/26/2019 5:[address] RA[employer]WAY LINE INSTALLER Associated Problem(s): Vitamin D deficiency Last vitamin-D level low at 16. Continue vitamin D2 72886 units weekly and vitamin D3 2000 units daily ET RAILWAY LINE INSTALLER * Assessment & Plan Note - Leni Potter MD - 11/26/2019 5:[address] RA[employer]WAY LINE INSTALLER Associated Problem(s): Pure hypercholesterolemia On atorvastatin 40 mg daily ET RAILWAY LINE INSTALLER * Assessment & Plan Note - Leni Potter MD - 11/26/2019 5:[address] RA[employer]WAY LINE INSTALLER Associated Problem(s): Type 2 diabetes mellitus (HCC) Patient has uncontrolled type 2 diabetes with [...] basal/bolus, doses pending. Follows with endocrinology here. ET RAILWAY LINE INSTALLER * Assessment & Plan Note - Leni Potter MD - 11/26/2019 5:[address] RAILWAY LINE INSTALLER Associated Problem(s): Lrziu-pweovv-msqy disease (HCC) Plan to taper prednisone to 20 mg daily ET RAILWAY LINE INSTALLER * Subjective & Objective - Leni Potter MD - 11/26/2019 5:[address] RAILWAY LINE INSTALLER Endocrine Diabetes Inpatient Follow Up 11/26/2019 Bri Jones [id number] Kirt Lindsay DO Admit Date: 11/20/2019 Length of Stay: 6 SUBJECTIVE: Bri Jones is a 54 y.o. male with T2DM, AML s/p allogenic stem jori transplant, COPD,GVHD who presented with dyspnea and is on high doses of steroids. Interval: Feeling well. Denies eating any snacks after dinner. Did have 1 diet soda. Knows he can snack with snack time Humalog. No nausea/vomiting. Blood sugar: Recent Labs Lab Units 11/26/19 1638 11/26/19 1146 11/26/19 0711 11/26/19 0423 11/25/19 2333 11/25/19 2057 11/25/19 1705 11/25/19 1150 11/25/19 0807 11/25/19 0515 GLUCOSE mg/dL -- -- -- 274* -- -- -- -- -- -- POC GLUCOSE MONITOR mg/dL 282* 271* 312* -- 202* 272* 305* 121 213* 425* Review of Systems Review of systems per HPI and otherwise all other systems are negative OBJECTIVE: Vitals: 11/26/19 0425 11/26/19 0828 11/26/19 1218 11/26/19 1634 BP: 136/75 135/77 128/81 128/67 BP Location: Left arm Left arm Patient Position: Sitting Sitting Sitting Pulse: 72 80 79 76 Resp: 16 16 16 16 Temp: 36.4 ??C (97.5 ??F) 36.5 ??C (97.7 ??F) 36.5 ??C (97.7 ??F) 36.5 ??C (97.7 ??F) TempSrc: Oral Oral Oral Oral SpO2: 95% 96% 95% 96% Weight: Height: I/O this shift: In: 1750 [P.O.:1100; IV Piggyback:650] Out: 2775 [Urine:2775] Physical Exam General: Alert, no acute distress, sitting up in bed HENT: mucus membranes are moist, no oral lesions Eyes: Sclera anicteric, EOMI, no proptosis Lungs: normal effort, coarse Heart: regular rate, normal rhythm, no murmur Abdomen: soft, non-tender, mildly distended Extremities: 2+ edema Neuro: grossly intact, alert and oriented x 3 Skin: No rash LAB/IMAGING: Recent Results (from the past 24 hour(s)) POCT glucose Collection Time: 11/25/19 8:57 PM Result Value Ref Range Glucose, POC 272 (H) 70 - 199 mg/dL POCT glucose Collection Time: 11/25/19 11:33 PM Result Value Ref Range Glucose, POC 202 (H) 70 - 199 mg/dL Type and screen Collection Time: 11/26/19 4:23 AM Result Value Ref Range ABO Rh A Positive Ursula, indirect Negative Comprehensive metabolic panel Collection Time: 11/26/19 4:23 AM Result Value Ref Range Sodium 140 135 - 145 mmol/L Potassium, pl 5.0 (H) 3.3 - 4.9 mmol/L Chloride 104 97 - 110 mmol/L CO2 30 22 - 32 mmol/L Anion gap 6 2 - 15 mmol/L BUN 30 (H) 8 - 25 mg/dL Creatinine 0.76 (L) 0.80 - 1.30 mg/dL Glucose 274 (H) 70 - 199 mg/dL Calcium 9.1 8.5 - 10.3 mg/dL Bilirubin, total 0.3 0.1 - 1.2 mg/dL Protein, pl 7.0 6.5 - 8.5 g/dL Albumin 3.7 3.5 - 5.0 g/dL Alk phos 103 40 - 130 Units/L ALT 43 7 - 55 Units/L AST 38 10 - 50 Units/L Uric acid Collection Time: 11/26/19 4:23 AM Result Value Ref Range Uric acid 3.4 3.0 - 8.0 mg/dL Lactate dehydrogenase (LD) Collection Time: 11/26/19 4:23 AM Result Value Ref Range Lactate dehydrogenase (LDH) 676 (H) 100 - 250 Units/L CBC without differential Collection Time: 11/26/19 4:23 AM Result Value Ref Range WBC 22.1 (H) 3.8 - 9.9 K/cumm Hgb 13.1 13.0 - 17.5 g/dL Hct 40.8 38.9 - 50.3 % Plt 278 150 - 400 K/cumm MPV 11.8 9.1 - 12.3 fL RBC 3.88 (L) 4.30 - 5.80 M/cumm MCV 105.2 (H) 81.3 - 96.4 fL MCH 33.8 (H) 27.1 - 33.3 pg MCHC 32.1 (L) 32.3 - 35.7 g/dL RDW CV 14.9 11.1 - 14.9 % RDW SD 56.8 (H) 35.7 - 48.1 fL NRBC abs 2.94 (H) 0.00 - 0.01 K/cumm Manual Differential Collection Time: 11/26/19 4:23 AM Result Value Ref Range Differential Manual Cells Counted 115 Neutrophil abs 17.1 (H) 1.7 - 6.5 K/cumm Imm gran abs 1.0 (H) 0.0 - 0.1 K/cumm Lymphocyte abs 2.7 0.8 - 3.3 K/cumm Monocyte abs 1.4 (H) 0.2 - 0.8 K/cumm Neutrophil pct 77.4 % Lymphocyte pct 12.2 % Monocyte pct 6.1 % Neutrophilic metamyelocytes 2.6 % Myelocytes 1.7 % RBC morphology Present (A) Polychromasia 3-7/HPF (A) Anisocytosis Slight (A) Poikilocytosis Moderate (A) Macrocytes 3-7/HPF (A) Platelet estimate Adequate Magnesium Collection Time: 11/26/19 4:23 AM Result Value Ref Range Magnesium 1.8 1.4 - 2.5 mg/dL Phosphorus Collection Time: 11/26/19 4:23 AM Result Value Ref Range Phosphorus, pl 3.5 2.3 - 4.5 mg/dL POCT glucose Collection Time: 11/26/19 7:11 AM Result Value Ref Range Glucose, POC 312 (H) 70 - 199 mg/dL Tacrolimus level trough Collection Time: 11/26/19 8:42 AM Result Value Ref Range Tacrolimus, trough 1.6 ng/mL POCT glucose Collection Time: 11/26/19 11:46 AM Result Value Ref Range Glucose, POC 271 (H) 70 - 199 mg/dL POCT glucose Collection Time: 11/26/19 4:38 PM Result Value Ref Range Glucose, POC 282 (H) 70 - 199 mg/dL Lab Results Component Value Date TSH 1.02 05/29/2019 T3FREE 3.6 02/04/2017 FREET4 1.16 02/04/2017 Lab Results Component Value Date CORTISOL 20.8 12/18/2017 Lab Results Component Value Date CHOL 193 05/29/2019 TRIG 266 (H) 05/29/2019 HDL 74 05/29/2019 LDL 154 (H) 05/07/2016 Lab Results Component Value Date PTH 54 08/07/2019 ET RAILWAY LINE INSTALLER * Plan of Care - Rogers Lagos RN - 11/26/2019 3:31 PM CST Follow up notes Report per DCAM Blood Sugar stabilization Impression AML Referrals None To date Support family Transportation family FU Appt To Be determined ADD 11/28 [facility] Will Follow for Planning and referrals ET RAILWAY LINE INSTALLER * Hospital Course - Mellisa Llamas MD - 11/26/2019 2:[address] RAILWAY LINE INSTALLER 54 y/o male with a hx of CHF, COPD, DVT, 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 He admitted with complaint of worsening SOB, on home O2 and steroid taper, after multiple outside hospitalizations over the past few months for similar problems. His glucose was also uncontrolled on admission. HisSOB was thought to possibly be related to chronic lung GVHD, with pneumonia noted on CT. He was continued on prednisone, eventually tapered to 20mg daily at discharge, and initiated on Jakafi on study, with plan for 2 cycles. He was initiated on IV antibiotics for pneumonia, transitioned to oral Augmentin prior to discharge, with plan to continue through 12/04 to complete a 2-week course. Endocrine was consulted regarding his uncontrolled glucose, discharged on new regimen as detailed below. ForGVHD ppx, he continues on Tacro and Cellcept, as well as pred and Jakafi, as noted above. For OI ppx, he discharges on Acyclovir and Vori, and Bactrim for PCP ppx. He discharges on his prior home O2. Discussed each prescription medication needed at discharge, patient stated he only needed new meds:Azithro, Augmentin, Prednisone, Voriconazole, Bactrim - which were sent to his preferred pharmacy. See recent problem list below for further details: Nervous Peripheral neuropathy Continue gabapentin ?? Respiratory Pneumonia POA. Possibly community-acquired and/or 2/[address] Strep pneumoniae pos sputum cx.See SOB problem. ?? Shortness of breath Concern for poss GVHD and/or poss COPD exacerbation, HF, infection. - Recently admitted to OSH with similar symptoms, discharged on pred taper, home O2. Admitted with??increased??O2 requirement, increased MILLER. - TTE (09/2019) EF 55%. - RVP neg. Bld Cx NGTD - Rpt TTE w/ EF 65% - CT chest 11/20/19:??Scattered tree-in-bud and nodular opacities throughout both lungs suggestive ofan acute infectious process. ??Thickened and debris-filled bronchi which are focally worse in the left lower lobe may indicate superimposed aspiration pneumonitis. - Sputum cx 11/21: strep pneumoniae, susceptible to Azithro, Ceftriaxone, pcn, vanc - On Cefe/Vanc (11/20 - 11/27), change to augmentin 11/27 to continue through 12/04 to complete 14-day course - Continue immunosuppresives. - Pulm toilet? COPD, severe (CMS/HCC) Continue inhalers ?? Circulatory CHF (congestive heart failure) ([facility]) With diastolic dysfunction, new diagnosis. -Continue Lasix. -(11/23) Rpt TTE showed EF 65%, unable to measure PA pressure, normal diastolic function. ?? DVT (deep venous thrombosis) ([facility]) Continue xarelto ?? Musculoskeletal Osteopenia Continue home vitamin D and dietary calcium ?? Endocrine/Metabolic Pure hypercholesterolemia Continue statin ?? Type 2 diabetes mellitus ([facility]) On basaglar 30 units AM and novolog 10 units TID with meals and SSI at home. No longer taking metformin at home. Follows with endocrine outpatient, however he has missed multiple appointments. - BG >400 on admit (pt stated he did not take his AM insulin). - Required Insulin gtt on 11/23, transitioned to 40U Lantus qHS, 15U NPH w/ steroids, 15U Lispro withmeals, HD SSI while here. - Endocrine following, appreciate recs. - DC on basaglar 40U daily, Humalog 15U with breakfast and 18U with lunch and dinner with meals plus SSI, while on prednisone 10 daily. - Hgb A1C 13 on admit. ?? Hematologic AML (acute myeloid leukemia) in remission ([facility]) Induction with 7+3 and HiDAC consolidation x3??s/p decitabine maintenance on the CALGB 17047 protocol. -??Relapsed disease,??status post an allogeneic transplant with busulfan and Cytoxan on the AMD allogeneic study with his sister, 08/27 match; with day 0 on 11/09/2009.?? - Currently in remission. Follows with Dr. Del Valle - On tacro, cellcept - OI ppx: Cont acyclovir. Added vori and bactrim (pt stated he was no longer taking at home). ?? Immune Eiguy-cctdmz-pesk disease ([facility]) Continue cellcept 1 g BID and tacrolimus??0.5 every other day. Last PFT with FEV1 50% in 12/2017 -??Admitted on prednisone 60 bid (on pred taper) - cont eye drops - Taper pred --> 20 bid on 11/23 --> taper to 20 daily on 11/26,--> discharge on pred 10 daily - Start Jakafi on study 11/23, plan for 2 cycles - Reports recently changed to Trelegy INH. Change to spiriva, advair; albuterol PRN while here. Change back to home inhaler at d/c. - Added Azithro 250 3x/weekly ?? Other Tobacco abuse Nicotine patch ET RAILWAY LINE INSTALLER ET RAILWAY LINE INSTALLER ET RAILWAY LINE INSTALLER ET RAILWAY LINE INSTALLER * Plan of Care - Narcisa Rivero RN - 11/26/2019 3:13 AM CST Problem: Activity: Goal: Ability to implement measures to reduce episodes of fatigue will improve Outcome: Progressing Problem: Bowel/Gastric: Goal: Will not experience complications related to bowel motility Outcome: Progressing Problem: Fluid Volume: Goal: Will maintain adequate fluid volume Outcome: Progressing Problem: Medication: Goal: Compliance with prescribed medication regimen will improve Outcome: Progressing Goal: Risk for medication side effects will decrease Outcome: Progressing Problem: Respiratory: Goal: Ability to maintain adequate ventilation will improve Outcome: Progressing Problem: Sensory: Goal: General experience of comfort will improve Outcome: Progressing Problem: Skin Integrity: Goal: Risk for impaired skin integrity will decrease Outcome: Progressing Problem: Health Behavior: Goal: Understanding of discharge needs will improve Outcome: Progressing Goals: Clinical Goals for the Shift: sleep well overnihgt. vss. remain pain free. remain free of falls. Summary: sleeping well overnight. Vss. Complained of lower back pain relieved by oxy. BG better controlled overnight. ET RAILWAY LINE INSTALLER * Plan of Care - Rosy Hidalgo RN - 11/25/2019 6:42 PM CST Problem: Activity: Goal: Ability to implement measures to reduce episodes of fatigue will improve Outcome: Progressing Problem: Bowel/Gastric: Goal: Will not experience complications related to bowel motility Outcome: Progressing Problem: Fluid Volume: Goal: Will maintain adequate fluid volume Outcome: Progressing Problem: Medication: Goal: Compliance with prescribed medication regimen will improve Outcome: Progressing Goal: Risk for medication side effects will decrease Outcome: Progressing Problem: Respiratory: Goal: Ability to maintain adequate ventilation will improve Outcome: Progressing Problem: Sensory: Goal: General experience of comfort will improve Outcome: Progressing Problem: Skin Integrity: Goal: Risk for impaired skin integrity will decrease Outcome: Progressing Problem: Health Behavior: Goal: Understanding of discharge needs will improve Outcome: Progressing Goals: Clinical Goals for the Shift: Patient will remain free from falls/injury, maintain adequate PO intake/OOB activity, and monitor blood sugars. Summary: Patient continues to feel well. Blood sugars much better controlled today. Educated on importance of calling nurse before eating to properly/accurately measure glucose levels. ET RAILWAY LINE INSTALLER * Assessment & Plan Note - Leni Potter MD - 11/25/2019 4:[address] RAILWAY LINE INSTALLER Associated Problem(s): CHF (congestive heart failure) (CMS/HCC) (HCC) Closely monitor blood sugar to avoid hypoglycemia ET RAILWAY LINE INSTALLER * Assessment & Plan Note - Leni Potter MD - 11/25/2019 4:[address] RAILWAY LINE INSTALLER Associated Problem(s): Vitamin D deficiency Last vitamin-D level low at 16. Continue vitamin D2 36599 units weekly and vitamin D3 2000 units daily ET RAILWAY LINE INSTALLER * Assessment & Plan Note - Leni Potter MD - 11/25/2019 4:[address] RAILWAY LINE INSTALLER Associated Problem(s): Pure hypercholesterolemia On atorvastatin 40 mg daily ET RAILWAY LINE INSTALLER * Assessment & Plan Note - Leni Potter MD - 11/25/2019 4:[address] RAILWAY LINE INSTALLER Associated Problem(s): Type 2 diabetes mellitus (HCC) Patient has uncontrolled type 2 diabetes with [...] basal/bolus, doses pending. Follows with endocrinology here. ET RAILWAY LINE INSTALLER * Assessment & Plan Note - Leni Potter MD - 11/25/2019 4:[address] RAILWAY LINE INSTALLER Associated Problem(s): Lfdcs-wfahrj-huuz disease (HCC) He is on prednisone 20 mg BID ET RAILWAY LINE INSTALLER * Subjective & Objective - Leni Potter MD - 11/25/2019 4:[address] RAILWAY LINE INSTALLER Endocrine Diabetes Inpatient Follow Up 11/25/2019 Bri Jones [id number] Kirt Lindsay DO Admit Date: 11/20/2019 Length of Stay: 5 SUBJECTIVE: Bri Jones is a 54 y.o. male with T2DM, AML s/p allogenic stem jori transplant, COPD,GVHD who presented with dyspnea and is on high doses of steroids. Interval: Feeling well today. Said he snacked on peanut butter and crackers last night. Also had Sera Mist.Ate all of his dinner. No nausea/vomiting. Continues on prednisone 20 mg BID. Blood sugar: Recent Labs Lab Units 11/25/19 1150 11/25/19 0807 11/25/19 0515 11/25/19 0319 11/25/19 0316 11/24/19 2354 11/24/19 2110 11/24/19 1717 11/24/19 1312 11/24/19 0734 GLUCOSE mg/dL -- -- -- 528* -- -- -- -- -- -- POC GLUCOSE MONITOR mg/dL 121 213* 425* -- 493* 376* 354* 195 211* 211* Review of Systems Review of systems per HPI and otherwise all other systems are negative OBJECTIVE: Vitals: 11/25/19 0320 11/25/19 0759 11/25/19 1130 11/25/19 1537 BP: 133/75 128/79 123/76 125/71 BP Location: Left arm Left arm Left arm Patient Position: Lying Lying Lying Pulse: 73 73 79 89 Resp: 18 18 18 18 Temp: 36.5 ??C (97.7 ??F) 36.5 ??C (97.7 ??F) 36.8 ??C (98.2 ??F) 36.5 ??C (97.7 ??F) TempSrc: Oral Oral Oral Oral SpO2: 100% 100% 98% 98% Weight: Height: I/O this shift: In: 1120 [P.O.:1120] Out: 2200 [Urine:2200] Physical Exam General: Alert, no acute distress, up walking aroudn HENT: mucus membranes are moist, no oral lesions Eyes: Sclera anicteric, EOMI, no proptosis Lungs: normal effort, coarse Heart: regular rate, normal rhythm, no murmur Abdomen: soft, non-tender, non-distended Extremities: 2+ edema Neuro: grossly intact, alert and oriented x 3 Skin: No rash LAB/IMAGING: Recent Results (from the past 24 hour(s)) POCT glucose Collection Time: 11/24/19 5:17 PM Result Value Ref Range Glucose, POC 195 70 - 199 mg/dL POCT glucose Collection Time: 11/24/19 9:10 PM Result Value Ref Range Glucose, POC 354 (H) 70 - 199 mg/dL POCT glucose Collection Time: 11/24/19 11:54 PM Result Value Ref Range Glucose, POC 376 (H) 70 - 199 mg/dL POCT glucose Collection Time: 11/25/19 3:16 AM Result Value Ref Range Glucose, POC 493 (Critical) 70 - 199 mg/dL Glucose comment 1 Doctor Notified Magnesium Collection Time: 11/25/19 3:19 AM Result Value Ref Range Magnesium 1.9 1.4 - 2.5 mg/dL Phosphorus Collection Time: 11/25/19 3:19 AM Result Value Ref Range Phosphorus, pl 2.6 2.3 - 4.5 mg/dL Basic metabolic panel Collection Time: 11/25/19 3:19 AM Result Value Ref Range Sodium 133 (L) 135 - 145 mmol/L Potassium, pl 5.2 (H) 3.3 - 4.9 mmol/L Chloride 96 (L) 97 - 110 mmol/L CO2 28 22 - 32 mmol/L Anion gap 9 2 - 15 mmol/L BUN 35 (H) 8 - 25 mg/dL Creatinine 0.84 0.80 - 1.30 mg/dL Glucose 528 (Critical) 70 - 199 mg/dL Calcium 8.5 8.5 - 10.3 mg/dL Vancomycin, random Collection Time: 11/25/19 3:19 AM Result Value Ref Range Vancomycin, Random 16.3 mcg/mL CBC without differential Collection Time: 11/25/19 3:19 AM Result Value Ref Range WBC 19.9 (H) 3.8 - 9.9 K/cumm Hgb 12.0 (L) 13.0 - 17.5 g/dL Hct 37.9 (L) 38.9 - 50.3 % Plt 265 150 - 400 K/cumm MPV 11.4 9.1 - 12.3 fL RBC 3.63 (L) 4.30 - 5.80 M/cumm MCV 104.4 (H) 81.3 - 96.4 fL MCH 33.1 27.1 - 33.3 pg MCHC 31.7 (L) 32.3 - 35.7 g/dL RDW CV 14.6 11.1 - 14.9 % RDW SD 56.0 (H) 35.7 - 48.1 fL NRBC abs 1.99 (H) 0.00 - 0.01 K/cumm Manual Differential Collection Time: 11/25/19 3:19 AM Result Value Ref Range Differential Manual Cells Counted 113 Neutrophil abs 16.6 (H) 1.7 - 6.5 K/cumm Imm gran abs 1.2 (H) 0.0 - 0.1 K/cumm Lymphocyte abs 0.9 0.8 - 3.3 K/cumm Monocyte abs 1.2 (H) 0.2 - 0.8 K/cumm Neutrophil pct 83.2 % Lymphocyte pct 4.4 % Monocyte pct 6.2 % Neutrophilic metamyelocytes 0.9 % Myelocytes 4.4 % Promyelocyte 0.9 % RBC morphology Present (A) Anisocytosis Moderate (A) Poikilocytosis Slight (A) Macrocytes 3-7/HPF (A) Platelet estimate Adequate Critical Result Callback Chemistry Collection Time: 11/25/19 3:19 AM Result Value Ref Range Date Notified [id number] Time Notified 422 TestName glucose Called/Read Back narcisa rivero Credentials RN Called By cs POCT glucose Collection Time: 11/25/19 5:15 AM Result Value Ref Range Glucose, POC 425 (H) 70 - 199 mg/dL POCT glucose Collection Time: 11/25/19 8:07 AM Result Value Ref Range Glucose, POC 213 (H) 70 - 199 mg/dL POCT glucose Collection Time: 11/25/19 11:50 AM Result Value Ref Range Glucose, POC 121 70 - 199 mg/dL ECG 12 lead Collection Time: 11/25/19 1:31 PM Result Value Ref Range Ventricular Rate EKG/Min 71 BPM Atrial Rate 71 BPM [place]-Interval (MSEC) 102 ms QRS-Interval (MSEC) 102 ms QT-Interval (MSEC) 374 ms QTc 406 ms P [place] 17 degrees R [place] 73 degrees T [place] 58 degrees Diagnosis Sinus rhythm with short [place] Otherwise normal ECG When compared with ECG of 20-NOV-2019 12:08, T wave amplitude has decreased in Lateral leads Lab Results Component Value Date TSH 1.02 05/29/2019 T3FREE 3.6 02/04/2017 FREET4 1.16 02/04/2017 Lab Results Component Value Date CORTISOL 20.8 12/18/2017 Lab Results Component Value Date CHOL 193 05/29/2019 TRIG 266 (H) 05/29/2019 HDL 74 05/29/2019 LDL 154 (H) 05/07/2016 Lab Results Component Value Date PTH 54 08/07/2019 ET RAILWAY LINE INSTALLER * Plan of Narcisa Griffin RN - 11/25/2019 3:42 AM CST Problem: Activity: Goal: Ability to implement measures to reduce episodes of fatigue will improve Outcome: Progressing Problem: Bowel/Gastric: Goal: Will not experience complications related to bowel motility Outcome: Progressing Problem: Fluid Volume: Goal: Will maintain adequate fluid volume Outcome: Progressing Problem: Medication: Goal: Compliance with prescribed medication regimen will improve Outcome: Progressing Goal: Risk for medication side effects will decrease Outcome: Progressing Problem: Respiratory: Goal: Ability to maintain adequate ventilation will improve Outcome: Progressing Problem: Sensory: Goal: General experience of comfort will improve Outcome: Progressing Problem: Skin Integrity: Goal: Risk for impaired skin integrity will decrease Outcome: Progressing Problem: Health Behavior: Goal: Understanding of discharge needs will improve Outcome: Progressing Goals: Clinical Goals for the Shift: vss. monitor BG. remain free of falls. remain free of pain Summary: BG High overnight. 356, 376, 493. No complaints of pain. Vss. Npo until BG lower. ET RAILWAY LINE INSTALLER * Assessment & Plan Note - Leni Potter MD - 11/24/2019 4:[address] RAILWAY LINE INSTALLER Associated Problem(s): CHF (congestive heart failure) (CMS/HCC) (HCC) Closely monitor blood sugar to avoid hypoglycemia ET RAILWAY LINE INSTALLER * Assessment & Plan Note - Leni Potter MD - 11/24/2019 4:[address] [employer]AY [employer] INST[employer]ER Associated Problem(s): Vitamin D deficiency Last vitamin-D level low at 16. Continue vitamin D2 40220 units weekly and vitamin D3 2000 units daily ET [employer] LINE INSTALLER * Assessment & Plan Note - Leni Potter MD - 11/24/2019 4:[address] [employer] Associated Problem(s): Pure hypercholesterolemia On atorvastatin 40 mg daily ET [employer] LINE INSTALLER * Assessment & Plan Note - Leni Potter MD - 11/24/2019 4:[address] [employer] Associated Problem(s): Type 2 diabetes mellitus (HCC) Patient has uncontrolled type 2 diabetes with [...] basal/bolus, doses pending. Follows with endocrinology here. ET [employer]AY LINE INSTALLER * Assessment & Plan Note - Leni Potter MD - 11/24/2019 4:[address] [employer] Associated Problem(s): Rxeof-kcdseb-axwy disease (HCC) He is on prednisone 20 mg BID ET [employer] LINE INST[employer]ER * Subjective & Objective - Leni Potter MD - 11/24/2019 4:[address] [employer] Endocrine Diabetes Inpatient Follow Up 11/24/2019 Bri Jones [id number] Kirt Lindsay DO Admit Date: 11/20/2019 Length of Stay: 4 SUBJECTIVE: Bri Jones is a 54 y.o. male with T2DM, AML s/p allogenic stem jori transplant, COPD,GVHD who presented with dyspnea and is on high doses of steroids. Interval: Feeling well today. Has a great appetite. No nausea/vomiting. Prednisone decreased to 20 mg BID. Blood sugar: Recent Labs Lab Units 11/24/19 1312 11/24/19 0734 11/24/19 0443 11/24/19 0438 11/24/19 0213 11/24/19 0047 11/23/19 2320 11/23/19 2145 11/23/19 2000 11/23/19 1820 GLUCOSE mg/dL -- -- 243* -- -- -- -- -- -- -- POC GLUCOSE MONITOR mg/dL 211* 211* -- 237* 225* 205* 241* 367* 423* 473* Review of Systems Review of systems per HPI and otherwise all other systems are negative OBJECTIVE: Vitals: 11/24/19 0435 11/24/19 0755 11/24/19 1154 11/24/19 1629 BP: 129/72 132/79 122/77 111/61 BP Location: Left arm Left arm Left arm Left arm Patient Position: Sitting Sitting Lying Lying Pulse: 69 87 81 78 Resp: 18 18 18 18 Temp: 36.4 ??C (97.5 ??F) 36.6 ??C (97.9 ??F) 36.5 ??C (97.7 ??F) 36.6 ??C (97.8 ??F) TempSrc: Oral Oral Oral Oral SpO2: 95% 100% 98% 98% Weight: Height: I/O this shift: In: 1640 [P.O.:1640] Out: 875 [Urine:875] Physical Exam General: Alert, no acute distress, up walking aroudn HENT: mucus membranes are moist, no oral lesions Eyes: Sclera anicteric, EOMI, no proptosis Lungs: normal effort, coarse Heart: regular rate, normal rhythm, no murmur Abdomen: soft, non-tender, non-distended Extremities: 2+ edema Neuro: grossly intact, alert and oriented x 3 Skin: No rash LAB/IMAGING: Recent Results (from the past 24 hour(s)) POCT glucose Collection Time: 11/23/19 6:20 PM Result Value Ref Range Glucose, POC 473 (Critical) 70 - 199 mg/dL Glucose comment 1 RN Notified POCT glucose Collection Time: 11/23/19 8:00 PM Result Value Ref Range Glucose, POC 423 (H) 70 - 199 mg/dL POCT glucose Collection Time: 11/23/19 9:45 PM Result Value Ref Range Glucose, POC 367 (H) 70 - 199 mg/dL POCT glucose Collection Time: 11/23/19 11:20 PM Result Value Ref Range Glucose, POC 241 (H) 70 - 199 mg/dL POCT glucose Collection Time: 11/24/19 12:47 AM Result Value Ref Range Glucose, POC 205 (H) 70 - 199 mg/dL POCT glucose Collection Time: 11/24/19 2:13 AM Result Value Ref Range Glucose, POC 225 (H) 70 - 199 mg/dL POCT glucose Collection Time: 11/24/19 4:38 AM Result Value Ref Range Glucose, POC 237 (H) 70 - 199 mg/dL Magnesium Collection Time: 11/24/19 4:43 AM Result Value Ref Range Magnesium 1.9 1.4 - 2.5 mg/dL Phosphorus Collection Time: 11/24/19 4:43 AM Result Value Ref Range Phosphorus, pl 3.4 2.3 - 4.5 mg/dL Basic metabolic panel Collection Time: 11/24/19 4:43 AM Result Value Ref Range Sodium 140 135 - 145 mmol/L Potassium, pl 5.0 (H) 3.3 - 4.9 mmol/L Chloride 102 97 - 110 mmol/L CO2 31 22 - 32 mmol/L Anion gap 7 2 - 15 mmol/L BUN 28 (H) 8 - 25 mg/dL Creatinine 0.75 (L) 0.80 - 1.30 mg/dL Glucose 243 (H) 70 - 199 mg/dL Calcium 9.0 8.5 - 10.3 mg/dL CBC without differential Collection Time: 11/24/19 4:43 AM Result Value Ref Range WBC 21.5 (H) 3.8 - 9.9 K/cumm Hgb 12.4 (L) 13.0 - 17.5 g/dL Hct 38.4 (L) 38.9 - 50.3 % Plt 268 150 - 400 K/cumm MPV 11.4 9.1 - 12.3 fL RBC 3.73 (L) 4.30 - 5.80 M/cumm MCV 102.9 (H) 81.3 - 96.4 fL MCH 33.2 27.1 - 33.3 pg MCHC 32.3 32.3 - 35.7 g/dL RDW CV 14.3 11.1 - 14.9 % RDW SD 53.9 (H) 35.7 - 48.1 fL NRBC abs 1.02 (H) 0.00 - 0.01 K/cumm Manual Differential Collection Time: 11/24/19 4:43 AM Result Value Ref Range Differential Manual Cells Counted 113 Neutrophil abs 17.8 (H) 1.7 - 6.5 K/cumm Imm gran abs 0.2 (H) 0.0 - 0.1 K/cumm Lymphocyte abs 2.7 0.8 - 3.3 K/cumm Monocyte abs 0.8 0.2 - 0.8 K/cumm Neutrophil pct 83.2 % Lymphocyte pct 12.4 % Monocyte pct 3.5 % Neutrophilic metamyelocytes 0.9 % RBC morphology Present (A) Anisocytosis Slight (A) Poikilocytosis Slight (A) Platelet estimate Adequate Morphology scrn See Comment POCT glucose Collection Time: 11/24/19 7:34 AM Result Value Ref Range Glucose, POC 211 (H) 70 - 199 mg/dL Vancomycin, trough Please draw before 4th dose of 1000 mg. Collection Time: 11/24/19 12:06 PM Result Value Ref Range Vancomycin, trough 22.7 (Critical) 10.0 - 20.9 mcg/mL Critical Result Callback Chemistry Collection Time: 11/24/19 12:06 PM Result Value Ref Range Date Notified [id number] Time Notified 12:59 TestName Vancomycin Tr Called/Read Back Critical result called to and read back by Marisa Vázquez (RN) on 11/24/2019 12:59:[address] RA[employer]AY [employer] INST[employer] to ec. Credentials RN Called By ec POCT glucose Collection Time: 11/24/19 1:12 PM Result Value Ref Range Glucose, POC 211 (H) 70 - 199 mg/dL Lab Results Component Value Date TSH 1.02 05/29/2019 T3FREE 3.6 02/04/2017 FREET4 1.16 02/04/2017 Lab Results Component Value Date CORTISOL 20.8 12/18/2017 Lab Results Component Value Date CHOL 193 05/29/2019 TRIG 266 (H) 05/29/2019 HDL 74 05/29/2019 LDL 154 (H) 05/07/2016 Lab Results Component Value Date PTH 54 08/07/2019 ET [employer]AY LINE INSTALLER * Plan of Care - Marisa Vázquez RN - 11/24/2019 4:20 PM CST Goals: Clinical Goals for the Shift: Monitor vital signs, monitor accu checks. Provide symptom management and SS insulin and ordered/scheduled insuling. Remain free from injury and falls. Problem: Activity: Goal: Ability to implement measures to reduce episodes of fatigue will improve Outcome: Progressing Problem: Bowel/Gastric: Goal: Will not experience complications related to bowel motility Outcome: Progressing Problem: Fluid Volume: Goal: Will maintain adequate fluid volume Outcome: Progressing Problem: Medication: Goal: Compliance with prescribed medication regimen will improve Outcome: Progressing Goal: Risk for medication side effects will decrease Outcome: Progressing Problem: Respiratory: Goal: Ability to maintain adequate ventilation will improve Outcome: Progressing Problem: Sensory: Goal: General experience of comfort will improve Outcome: Progressing Problem: Skin Integrity: Goal: Risk for impaired skin integrity will decrease Outcome: Progressing Problem: Health Behavior: Goal: Understanding of discharge needs will improve Outcome: Progressing Summary: Afebrile, vital signs within normal limits for this patient. Accu checks with SS insulin and lispro pre meals. Patient counting his carbs when he orders his meals. Steady gait in room when ambulating. ET [employer] INSTALLER * Assessment & Plan Note - Iza Gordon NP - 11/24/2019 8:00 AM CSTAssociated Problem(s): Pneumonia due to stenotrophomonas POA. Possibly community-acquired and/or 2/[address] Strep pneumoniae pos sputum cx.See SOB problem. ET [employer]AY LINE INSTALLER ET [employer]AY LINE INSTALLER * Plan of Care - Kait Mcdaniel RN - 11/24/2019 5:39 AM CST Problem: Activity: Goal: Ability to implement measures to reduce episodes of fatigue will improve Outcome: Progressing Problem: Bowel/Gastric: Goal: Will not experience complications related to bowel motility Outcome: Progressing Problem: Fluid Volume: Goal: Will maintain adequate fluid volume Outcome: Progressing Problem: Medication: Goal: Compliance with prescribed medication regimen will improve Outcome: Progressing Goal: Risk for medication side effects will decrease Outcome: Progressing Problem: Respiratory: Goal: Ability to maintain adequate ventilation will improve Outcome: Progressing Problem: Sensory: Goal: General experience of comfort will improve Outcome: Progressing Problem: Skin Integrity: Goal: Risk for impaired skin integrity will decrease Outcome: Progressing Problem: Health Behavior: Goal: Understanding of discharge needs will improve Outcome: Progressing Goals: Clinical Goals for the Shift: VSS; remain free from fall/injury; adequate rest; manage BG Summary: VSS. Pt reported chronic back pain; administered prn oxy. BG 200s throughout night; see MAR for insulin orders. Pt remains free from fall/injury. Pt has been sleeping well. Will continue to monitor. ET [employer]AY LINE INSTALLER * Plan of Care - Rogers Lagos RN - 11/23/2019 5:00 PM CST Unable to Complete initial assessment ET [employer]AY LINE INSTALLER * Plan of Care - Jared Joe RN - 11/23/2019 4:12 PM CST Problem: Activity: Goal: Ability to implement measures to reduce episodes of fatigue will improve Outcome: Progressing Problem: Bowel/Gastric: Goal: Will not experience complications related to bowel motility Outcome: Progressing Problem: Fluid Volume: Goal: Will maintain adequate fluid volume Outcome: Progressing Problem: Medication: Goal: Compliance with prescribed medication regimen will improve Outcome: Progressing Goal: Risk for medication side effects will decrease Outcome: Progressing Problem: Respiratory: Goal: Ability to maintain adequate ventilation will improve Outcome: Progressing Problem: Sensory: Goal: General experience of comfort will improve Outcome: Progressing Problem: Skin Integrity: Goal: Risk for impaired skin integrity will decrease Outcome: Progressing Goals: Clinical Goals for the Shift: control blood sugars Summary: started insulin drip and got patients sugar down to 156, stopped drip per endocrine, will continue to monitor ET RA[employer]AY LINE INSTALLER * Assessment & Plan Note - Leni Potter MD - 11/23/2019 2:[address] [employer] Associated Problem(s): Pure hypercholesterolemia On atorvastatin 40 mg daily ET RA[employer]WAY LINE INSTALLER * Assessment & Plan Note - Leni Potter MD - 11/23/2019 2:[address] [employer] INST[employer]ER Associated Problem(s): Vitamin D deficiency Last vitamin-D level low at 16. Continue vitamin D2 02429 units weekly and vitamin D3 2000 units daily ET RA[employer]WAY LINE INSTALLER * Assessment & Plan Note - Leni Potter MD - 11/23/2019 2:[address] [employer] INST[employer] Associated Problem(s): CHF (congestive heart failure) (CMS/HCC) (HCC) Closely monitor blood sugar to avoid hypoglycemia ET RA[employer]WAY LINE INSTALLER * Assessment & Plan Note - Leni Potter MD - 11/23/2019 2:[address] [employer] LINE INST[employer]ER Associated Problem(s): Cscue-afrqkm-ycoq disease (HCC) Starting on prednisone 20 twice daily today ET RA[employer]WAY LINE INSTALLER * Assessment & Plan Note - Leni Potter MD - 11/23/2019 1:[address] [employer] LINE INST[employer]ER Associated Problem(s): Type 2 diabetes mellitus (HCC) Patient has uncontrolled type 2 diabetes with [...] basal/bolus, doses pending. Follows with endocrinology here. ET RA[employer]WAY LINE INSTALLER * Subjective & Objective - Leni Potter MD - 11/23/2019 1:[address] [employer] INST[employer]ER Endocrine Diabetes Inpatient Consult 11/23/2019 Bri Jones [id number] Kirt Lindsay DO CONSULTING PROVIDER: Leni Potter MD REQUESTING PROVIDER: Josué Del Valle MD REASON FOR CONSULTATION: Type 2 Diabetes The risks and benefits of my recommendations, as well as other treatment options were discussed with the patient today. Questions were answered. HISTORY OF PRESENT ILLNESS: Bri Jones is a 54 y.o. male with T2DM, AML s/p allogenic stem jori transplant, COPD,GVHD who presented with dyspnea and is on high doses of steroids. Patient was diagnosed with steroid induced diabetes in 2007. He had an episode of pancreatitis related to gallstones in 2012 and started on insulin at that time. He reports neuropathy in his feet butdenies any eye complications from diabetes or nephropathy. He follows with Dr. Gibson here. Most recently he is taking Lantus 30 units in the morning and NovoLog 10 units with meals. He reports adherence to his Lantus but will occasionally forget his NovoLog. On admission here his blood sugar was elevated to 400. He was started on prednisone 40 mg twice daily. His blood sugar has remained quite elevated and started on insulin drip this morning. His prednisone is planned to be tapered to 20 mg twice daily today. Blood sugar on admission was: Recent Labs Lab Units 11/23/19 1244 11/23/19 1145 11/23/19 1013 11/23/19 0823 11/23/19 0441 11/23/19 0307 11/23/19 0256 11/23/19 0106 11/22/19 2210 11/22/19 1734 GLUCOSE mg/dL -- -- -- -- -- 379* -- -- -- -- POC GLUCOSE MONITOR mg/dL 296* 407* 419* 449* 372* -- 404* 443* 418* 377* Most recent hemoglobin A1C was: Lab Results Component Value Date HGBA1C 13.5 (H) 11/20/2019 He has not symptoms of hyperglycemia prior to admission. The initial diagnosis of diabetes was made 2012. He is on steroids. He is not on pressors. Home diabetes regimen consists of: Prior to Admission medications Medication Sig Start Date End Date Taking? Authorizing Provider acyclovir (ZOVIRAX) 400 mg tablet TAKE 1 TABLET BY MOUTH EVERY 8 HOURS 03/10/19 Narcisa Kilgore NP ADVAIR DISKUS 100-50 mcg/dose diskus inhaler INHALE 1 DOSE BY MOUTH TWICE DAILY 04/06/19 Narcisa Kilgore NP atorvastatin (LIPITOR) 40 mg tablet Take 1 tablet (40 mg total) by mouth daily 02/11/19 Eneida Gibson MD BASAGLAR VIOLETTE U-100 INSULIN 100 unit/mL (3 mL) insulin pen INJECT 35 UNITS Q AM 08/25/19 Mari Singh MD blood glucose diagnostic strip Check blood sugar tid 07/01/19 Eneida Gibson MD blood-glucose meter misc 1 Device 3 (three) times a day 05/29/19 Eneida Gibson MD dextromethorphan-guaiFENesin (TUSSIN-DM) liquid 10-100 mg/5 mL Take 5 mL by mouth 2 (two) times a day as needed for cough 08/25/19 Mari Singh MD DOXYCYCLINE HYCLATE 100 mg capsule TAKE 1 CAPSULE BY MOUTH EVERY 12 HOURS 09/18/19 Historical Provider, ergocalciferol (VITAMIN D) 50,000 unit capsule Take 1 capsule (50,000 Units total) by mouth once a week 06/02/19 06/01/20 Eneida Gibson MD furosemide (LASIX) 20 mg tablet Take 1 tablet (20 mg total) by mouth daily As needed. 08/07/19 02/03/20 Eneida Gibson MD gabapentin (NEURONTIN) 300 mg capsule TAKE 1 PO QD 08/21/19 Eneida Gibson MD glucagon (glucagon) 1 mg kit USE DIRECTED AT SCHOOL AND HOME 12/14/13 Historical Provider, MD WHITTAKERALOG VIOLETTE INSULIN 100 unit/mL insulin pen INJECT 10 -16 UNITS BEFORE MEALS. 08/07/19 Eneida Gibson MD HYDROcodone-acetaminophen (NORCO) 5-325 mg per tablet Take 1 tablet by mouth every 6 (six) hours asneeded 10/17/19 Historical Provider, metFORMIN XR (GLUCOPHAGE XR) 500 mg 24 hr tablet Take 2 tablets (1,000 mg total) by mouth 2 (two) times a day 07/31/19 08/30/19 Eneida Gibson MD montelukast (SINGULAIR) 10 mg tablet Take 1 tablet (10 mg total) by mouth nightly. 12/17/18 12/17/19 Narcisa Kilgore NP mycophenolate mofetil (CELLCEPT) 500 mg tablet TAKE 2 TABLETS BY MOUTH TWICE DAILY 01/05/19 Josué Del Valle MD PhD nicotine (NICODERM CQ) [address] 1 patch on the skin daily 08/26/19 09/25/19 Mari Singh MD ofloxacin (OCUFLOX) 0.3 % ophthalmic solution Administer 1 drop into both eyes 2 (two) times a day 08/11/19 Ravi Hughes MD pen needle, diabetic 31 gauge x 5/16 needle Use to inject 1-4 times daily as directed. 11/24/18 11/24/19 Josefa Nur NP ruxolitinib (JAKAFI) 5 mg tablet Take 2 tablets (10 mg total) by mouth 2 (two) times a day Take at about the same time each day. Take with or without food. 11/20/19 12/20/19 Delmy Fong NP sildenafil, antihypertensive, (REVATIO) 20 mg tablet TAKE ONE TO FIVE TABLETS BY MOUTH DAILY NEEDED 05/01/19 Historical Provider, sodium chloride-sodium bicarbonate (NEILMED SINUS RINSE, AYR) packet with rinse device Administer 240 mL (1 packet total) into each nostril daily as needed (sinus congestion). 11/24/18 Josefa Nur NP sulfamethoxazole-trimethoprim (BACTRIM DS,SEPTRA DS) 800-160 mg per tablet TAKE 1 TABLET BY MOUTH TWICE DAILY ON Saturday. 04/18/19 Historical Provider, tacrolimus (PROGRAF) 0.5 mg capsule Take 1 capsule (0.5 mg total) by mouth every other day. 11/25/18 Josefa Nur NP tiotropium (SPIRIVA) 18 mcg per inhalation capsule Place 1 puff (1 capsule total) into inhaler and inhale daily 08/26/19 10/25/19 Mari Singh MD traMADol (ULTRAM) 50 mg tablet TAKE 1 TABLET BY MOUTH EVERY 6 HOURS NEEDED FOR PAIN (MAX OF 3 TABLETS PER DAY) 10/08/19 Historical Provider, MD ARPITA MARTINEZ 100-62.5-25 mcg inhaler INHALE 1 PUFF BY INHALATION ROUTE ONCE DAILY AT THE SAME TIME EACH DAY. RINSE SPIT AFTER USE. DON T USE WITH OTHER INHALERS. STOP ADVAIR AND 10/02/19 Historical Provider, VENTOLIN HFA 90 mcg/actuation inhaler INHALE 1 TO 2 PUFFS BY MOUTH EVERY 4 HOURS NEEDED FOR SHORTNESS OF BREATH 09/23/19 Narcisa Kilgore NP XARELTO 20 mg tablet TAKE 1 TABLET BY MOUTH ONCE DAILY WITH FOOD 06/15/19 Josué Del Valle MD PhD Patient is eating. Compliance with diabetic therapy is estimated to be fair. Patient has never previously been in diabetic ketoacidosis. Patient has never had episodes of hypoglycemia which have required medical attention or secondary assistance. Hypoglycemia occurs 0 times a week. Diabetic complications include: peripheral neuropathy. Comorbidities include: HTN, HLD Past Medical History: Diagnosis Date ??? Personal history of leukemia History of acute myeloid leukemia - (Added by TW Conv) ??? Personal history of other diseases of the respiratory system History of pulmonary emphysema - (Added by TW Conv) ??? Personal history of other endocrine, nutritional and metabolic disease History of diabetes mellitus - (Added by TW Conv) ??? Personal history of other venous thrombosis and embolism H/O blood clots - (Added by TW Conv) ??? Visual disturbance Vision changes - (Added by TW Conv) Past Surgical History: Procedure Laterality Date ??? 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 FILTER N/A 07/16/2013 ??? 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 FILTER N/A 02/05/2013 ??? NJ TUBE PLACEMENT N/A 02/04/2013 ??? NJ TUBE PLACEMENT N/A 02/04/2013 ??? NJ TUBE PLACEMENT N/A 01/28/2013 ??? NJ TUBE PLACEMENT N/A 01/28/2013 Allergies Allergen Reactions ??? Adhesive Redness Family History Problem Relation Age of Onset ??? Heart disease Mother Family history of cardiac disorder - (Added by TW Conv) Social History Socioeconomic History ??? Marital status: Spouse name: Not on file ??? Number of children: Not on file ??? Years of education: Not on file ??? Highest education level: Not on file Occupational History ??? Not on file Social Needs ??? Financial resource strain: Not on file ??? Food insecurity: Worry: Not on file Inability: Not on file ??? Transportation needs: Medical: Not on file Non-medical: Not on file Tobacco Use ??? Smoking status: Current Every Day Smoker ??? Smokeless tobacco: Never Used ??? Tobacco comment: Pt not interested in smoking cessation program Substance and Sexual Activity ??? Alcohol use: Not on file ??? Drug use: Not on file ??? Sexual activity: Not on file Lifestyle ??? Physical activity: Days per week: Not on file Minutes per session: Not on file ??? Stress: Not on file Relationships ??? Social connections: Talks on phone: Not on file Gets together: Not on file Attends mormon service: Not on file Active member of club or organization: Not on file Attends meetings of clubs or organizations: Not on file Relationship status: Not on file ??? Intimate partner violence: Fear of current or ex partner: Not on file Emotionally abused: Not on file Physically abused: Not on file Forced sexual activity: Not on file Other Topics Concern ??? Not on file Social History Narrative : (Added by TW Conv) No alcohol use : (Added by TW Conv) Review of Systems Review of systems per HPI and otherwise all other systems are negative OBJECTIVE: Vitals: 11/22/19 2333 11/23/19 0445 11/23/19 0834 11/23/19 1202 BP: 126/77 126/74 130/75 140/68 BP Location: Left arm Left arm Left arm Left arm Patient Position: Lying Lying Lying Sitting Pulse: 77 66 80 87 Resp: 18 18 18 18 Temp: 36.5 ??C (97.7 ??F) 36.3 ??C (97.3 ??F) 36.4 ??C (97.5 ??F) 36.4 ??C (97.5 ??F) TempSrc: Oral Oral Oral Oral SpO2: 93% 98% 96% 92% Weight: Height: I/O this shift: In: 240 [P.O.:240] Out: 600 [Urine:600] Physical Exam General: Alert, no acute distress, laying in bed HENT: mucus membranes are moist, no oral lesions Eyes: Sclera anicteric, EOMI, no proptosis Neck: supple, no thyromegaly or nodules Lungs: normal effort, coarse Heart: regular rate, normal rhythm, no murmur appreciated Abdomen: soft, non-tender, non-distended Extremities: 2+ edema Neuro: grossly intact, alert and oriented x 3 Skin: No rash LAB/IMAGING: Recent Results (from the past 24 hour(s)) POCT glucose Collection Time: 11/22/19 5:34 PM Result Value Ref Range Glucose, POC 377 (H) 70 - 199 mg/dL POCT glucose Collection Time: 11/22/19 10:10 PM Result Value Ref Range Glucose, POC 418 (H) 70 - 199 mg/dL POCT glucose Collection Time: 11/23/19 1:06 AM Result Value Ref Range Glucose, POC 443 (H) 70 - 199 mg/dL POCT glucose Collection Time: 11/23/19 2:56 AM Result Value Ref Range Glucose, POC 404 (H) 70 - 199 mg/dL Type and screen Collection Time: 11/23/19 3:07 AM Result Value Ref Range ABO Rh A Positive Ursula, indirect Negative Comprehensive metabolic panel Collection Time: 11/23/19 3:07 AM Result Value Ref Range Sodium 131 (L) 135 - 145 mmol/L Potassium, pl See Comment 3.3 - 4.9 mmol/L Chloride 92 (L) 97 - 110 mmol/L CO2 29 22 - 32 mmol/L Anion gap 10 2 - 15 mmol/L BUN 29 (H) 8 - 25 mg/dL Creatinine 0.78 (L) 0.80 - 1.30 mg/dL Glucose 379 (H) 70 - 199 mg/dL Calcium 8.7 8.5 - 10.3 mg/dL Bilirubin, total 0.2 0.1 - 1.2 mg/dL Protein, pl 6.5 6.5 - 8.5 g/dL Albumin 3.2 (L) 3.5 - 5.0 g/dL Alk phos 100 40 - 130 Units/L ALT See Comment 7 - 55 Units/L AST See Comment 10 - 50 Units/L Uric acid Collection Time: 11/23/19 3:07 AM Result Value Ref Range Uric acid 4.6 3.0 - 8.0 mg/dL Lactate dehydrogenase (LD) Collection Time: 11/23/19 3:07 AM Result Value Ref Range Lactate dehydrogenase (LDH) See Comment 100 - 250 Units/L aPTT Collection Time: 11/23/19 3:07 AM Result Value Ref Range aPTT 29 25 - 37 sec Protime-INR Collection Time: 11/23/19 3:07 AM Result Value Ref Range PT 17.4 (H) 8.6 - 13.0 sec INR 1.6 (H) 0.8 - 1.2 CBC without differential Collection Time: 11/23/19 3:07 AM Result Value Ref Range WBC 20.6 (H) 3.8 - 9.9 K/cumm Hgb 12.1 (L) 13.0 - 17.5 g/dL Hct 36.1 (L) 38.9 - 50.3 % Plt 265 150 - 400 K/cumm MPV 11.4 9.1 - 12.3 fL RBC 3.62 (L) 4.30 - 5.80 M/cumm MCV 99.7 (H) 81.3 - 96.4 fL MCH 33.4 (H) 27.1 - 33.3 pg MCHC 33.5 32.3 - 35.7 g/dL RDW CV 13.7 11.1 - 14.9 % RDW SD 50.7 (H) 35.7 - 48.1 fL NRBC abs 0.61 (H) 0.00 - 0.01 K/cumm Manual Differential Collection Time: 11/23/19 3:07 AM Result Value Ref Range Differential Manual Cells Counted 113 Neutrophil abs 17.5 (H) 1.7 - 6.5 K/cumm Imm gran abs 0.4 (H) 0.0 - 0.1 K/cumm Lymphocyte abs 1.6 0.8 - 3.3 K/cumm Monocyte abs 1.1 (H) 0.2 - 0.8 K/cumm Neutrophil pct 84.9 % Lymphocyte pct 8.0 % Monocyte pct 5.3 % Neutrophilic metamyelocytes 0.9 (H) 0.0 - 0.0 % Myelocytes 0.9 % RBC morphology Normal Platelet estimate Adequate Magnesium Collection Time: 11/23/19 3:07 AM Result Value Ref Range Magnesium 1.8 1.4 - 2.5 mg/dL Phosphorus Collection Time: 11/23/19 3:07 AM Result Value Ref Range Phosphorus, pl 2.9 2.3 - 4.5 mg/dL POCT glucose Collection Time: 11/23/19 4:41 AM Result Value Ref Range Glucose, POC 372 (H) 70 - 199 mg/dL POCT glucose Collection Time: 11/23/19 8:23 AM Result Value Ref Range Glucose, POC 449 (H) 70 - 199 mg/dL POCT glucose Collection Time: 11/23/19 10:13 AM Result Value Ref Range Glucose, POC 419 (H) 70 - 199 mg/dL POCT glucose Collection Time: 11/23/19 11:45 AM Result Value Ref Range Glucose, POC 407 (H) 70 - 199 mg/dL POCT glucose Collection Time: 11/23/19 12:44 PM Result Value Ref Range Glucose, POC 296 (H) 70 - 199 mg/dL Lab Results Component Value Date TSH 1.02 05/29/2019 T3FREE 3.6 02/04/2017 FREET4 1.16 02/04/2017 Lab Results Component Value Date CORTISOL 20.8 12/18/2017 Lab Results Component Value Date CHOL 193 05/29/2019 TRIG 266 (H) 05/29/2019 HDL 74 05/29/2019 LDL 154 (H) 05/07/2016 Lab Results Component Value Date PTH 54 08/07/2019 ET RAILWAY LINE INSTALLER * Provider Query - Hannah Pardo - 11/23/2019 11:08 AM CST Please specify the acuity of chf and document in the medical record and on the form below. IndicatePresent on Admission status. ___ Acute (Exacerbated/decompensated)DHF ___ Acute on Chronic DHF ___ Chronic stable DHF (Compensated) ___ DHF In remission ___ Other, specify below _x__ Clinically unable to determine Clinical Indicators/Treatments: ?? Per H/P: cc persistent SOB, diff walking 12-15 ft w/out significant sob ?? 5 L O2, productive cough, bilat LL pitting edema ?? CT chest, AYUSH ?? CHF with diastolic dysfunction, new diagnosis ?? Continue Lasix Provider Response: Possible acute on chronic CHF. SOB possibly r/t GVHD and / or infection, CHF, COPD exacerbation. TTE pending. Continue lasix. Antibiotics for pneumonia noted on chest CT. Titrate O2 as tolerated. Use of terms such as likely, suspected, possible, or probable (associated with a specific diagnosisthat is being evaluated, monitored, or treated as if it exists) are acceptable and can be coded in the inpatient setting when documented at the time of discharge. This documentation will become part of the patient's medical record. Sincerely, Hannah Pardo Health Information Management ET RAILWAY LINE INSTALLER * Provider Query - Hannah Pardo - 11/23/2019 10:57 AM CST Please clarify the most likely etiology of the patient???s symptoms. Indicate Present on Admission status. SIRS or Sepsis Syndrome does not equate to Sepsis. It is only a constellation of symptoms ___ Sepsis (infection plus systemic manifestations) _x__ Localized infection such as UTI, pneumonia, etc WITHOUT systemic manifestations ___ Other, specify below ___ Clinically unable to determine Clinical Indicators/Treatments: ?? 1/3 per H/P: tm=99, rrm=24, b/p low=86/58 wbc=14 ?? per H/P: c/f poss copd exac, tx pna/BOOP ?? Cefe, Vanc, IVF bolus per JAN report for 'sepsis' Provider Response: Likely 2/[address], sputum culture with strep pneumoniae. BC remain NGTD. BP resolvedwith hydration. Continue IV antibiotics. Adult SIRS/Sepsis Screening Criteria SIRS Temp >38.3 C (100.9 F) or <36 (96.8 F) HR (pulse) >90 Respiratory rate >20 WBC > 12,000 or <4,000 or >10% bands Sepsis 2 of 4 SIRS criteria present AND suspected/confirmed source of infection Severe Sepsis Sepsis plus at least one sign of NEW hypoperfusion or organ dysfunction not limited to but may include: - Lactate >2 mmol/L - INR > 1.5 or aPTT >60 seconds - Platelet count <100,000 ??L?1 - Bilirubin >2 mg/dL - Creatinine >2 mg/dL (if no documentation of renal failure) - Urine output <0.5 mL/kg/hr x 2 hours - Acute respiratory failure with new need for mechanical ventilation or noninvasive ventilation - Altered mental status or Encephalopathy (new or acutely worsened due to infection) - One or more reading(s) of hypotension prior to 30ml/kg fluid bolus (SBP< 90 mmHG or MAP< 65, or SBP decrease of > 40 mmHG from baseline) Septic Shock Severe sepsis patients with: - Two or more readings of hypotension (SBP <90 or MAP< 65) after 30ml/kg fluid bolus, often requiring vasopressors or - Lactate >=4 Use of terms such as likely, suspected, possible, or probable (associated with a specific diagnosisthat is being evaluated, monitored, or treated as if it exists) are acceptable and can be coded in the inpatient setting when documented at the time of discharge. This documentation will become part of the patient???s medical record. Sincerely, Hannah Byrnes [facility] Information Management ET RAILWAY LINE INSTALLER * Plan of Care - Kait Mcdaniel, BECKI - 11/23/2019 6:49 AM CST Problem: Activity: Goal: Ability to implement measures to reduce episodes of fatigue will improve Outcome: Progressing Problem: Bowel/Gastric: Goal: Will not experience complications related to bowel motility Outcome: Progressing Problem: Fluid Volume: Goal: Will maintain adequate fluid volume Outcome: Progressing Problem: Medication: Goal: Compliance with prescribed medication regimen will improve Outcome: Progressing Goal: Risk for medication side effects will decrease Outcome: Progressing Problem: Respiratory: Goal: Ability to maintain adequate ventilation will improve Outcome: Progressing Problem: Sensory: Goal: General experience of comfort will improve Outcome: Progressing Problem: Skin Integrity: Goal: Risk for impaired skin integrity will decrease Outcome: Progressing Goals: Clinical Goals for the Shift: VSS; remain free from fall/injury; adequate rest; manage BG Summary: VSS. Pt reported 7/10 back pain d/t chronic cough; administered prn oxy 10mg. Pt remains free from fall/injury. Pt has been awake for the majority of the night. BG in 400s throughout the night; notified; see MAR. Will continue to monitor. ET RAILWAY LINE INSTALLER * Plan of Care - Pearl Chaney RN - 11/22/2019 6:30 PM CST Goals: Clinical Goals for the Shift: Blood sugars WNL, no pain, ambulate , afebrile, VSS Summary: Patient has rested in bed and chair this shift. Showered and ambulated in room. Family visited. Oxycodone for back. Blood sugars remain elevated - insulin given per md orders. Eating all meals with no N/V. Oxygen via NC continues. Afebrile. VSS. Care plan continues. ET RAILWAY LINE INSTALLER * Plan of Care - Betty Montemayor RN - 11/22/2019 6:06 AM CST Goals: Clinical Goals for the Shift: No pain, blood sugars WNL, ease work of breathing, afebrile, VSS Summary: Pt rested adequately throughout the night. Pt BS at HS was 523 and treated per MD orders. Pt received oxy for pain x2. Pt pulled out his IV while walking to the bathroom and stated feeling claustrophobic in the bed and needed to get out . Pt was Ao3. Rechecked BS and in 300s. New PIV was placed. Pt now placed on bed alarm for safety and was educated and told to call out for assistance. Pt safely in bed with call light in reach with no acute complaints at this time. WTC. ET RAILWAY LINE INSTALLER * Plan of Care - Pearl Chaney RN - 11/21/2019 6:50 PM CST Goals: Clinical Goals for the Shift: No pain, blood sugars WNL, ease work of breathing, afebrile, VSS Summary: patient has rested in bed and ambulated to bathroom with one assist. Complained of pain tolower back - oxycodone 5mg x1 with relief. Blood sugars remain elevated - insulin given per md orders. Continues on oxygen at 3L per NC - uses oxygen at home. Denies shortness of breath while at rest. Afebrile. VSS, careplan continues. ET RAILWAY LINE INSTALLER * Provider Query - Lizzette Grijalva MD - 11/21/2019 11:06 AM CST Based on the clinical indicators and antibiotic choice, specify the most likely type of pneumonia(s) being treated. Document in the medical record and on the form below. Indicate Present on Admissionstatus. NOTE: CAP and HCAP do not indicate the type of pneumonia being treated Select ALL conditions being treated: ____Aspiration pneumonia ____Gram negative pneumonia, specify organism below ____Gram positive pneumonia, specify organism below ____Staph pneumonia ____Pneumonia due to Influenza ____Other, specify below _X___Clinically unable to determine Clinical Indicators/Treatments: DG: Pneumonia (HCAP) CT chest Scattered tree-in-bud and nodular opacities throughout both lungs suggestive of an acute infectious process. ??Thickened and debris-filled bronchi which are focally worse in the left lower lobe may indicate superimposed aspiration pneumonitis. Monitoring/TX: Cefepime for sepsis, Vancomycin for sepsis, Provider Response: As above Use of terms such as likely, suspected, possible, or probable (associated with a specific diagnosisthat is being evaluated, monitored, or treated as if it exists) are acceptable and can be coded in the inpatient setting when documented at the time of discharge. This documentation will become part of the patient???s medical record. Respectfully, Dayana Aburto RN BSN CCDS Clinical Child Day Care Teacher [id number] ET RAILWAY LINE INSTALLER * Plan of Care - Antonia Pat, VAN CDL DRIVER - 11/21/2019 7:53 AM CST Pt has a history of severe copd. Pt is ordered on spirvia and adavir 100/50 1 puff bid. Breath sounds= diminished bilaterally, hr=80, rr=16 on 3L NC. Pt is able to self admin advair 100/50 and sprivia and is therefore being placed bedside for rn to admin. ET RAILWAY LINE INSTALLER * Plan of Care - Bela Gabriel RN - 11/21/2019 4:07 AM CST Goals: Clinical Goals for the Shift: VSS, coordinate care to promote rest, monitor BG, remain free of falls Summary: Monitor VS Q4 hrs and as needed, cluster care to promote rest ET RAILWAY LINE INSTALLER * Plan of Care - Sudha Houston RN - 11/20/2019 5:05 PM CST Problem: Activity: Goal: Ability to implement measures to reduce episodes of fatigue will improve Outcome: Progressing Problem: Bowel/Gastric: Goal: Will not experience complications related to bowel motility Outcome: Progressing Problem: Fluid Volume: Goal: Will maintain adequate fluid volume Outcome: Progressing Problem: Medication: Goal: Compliance with prescribed medication regimen will improve Outcome: Progressing Goal: Risk for medication side effects will decrease Outcome: Progressing Problem: Respiratory: Goal: Ability to maintain adequate ventilation will improve Outcome: Progressing Problem: Sensory: Goal: General experience of comfort will improve Outcome: Progressing Problem: Skin Integrity: Goal: Risk for impaired skin integrity will decrease Outcome: Progressing Goals: Summary: Patient admitted today at noon. Patient has stable vitals and requires 5L NC of O2. Patient stand by assist, decent appetite, uncontrolled BS and calls out as needed. ET RAILWAY LINE INSTALLER * Assessment & Plan Note - Iza Gordon NP - 11/20/2019 4:18 PM CSTAssociated Problem(s): Pure hypercholesterolemia Continue statin ET RAILWAY LINE INSTALLER * Assessment & Plan Note - Iza Gordon NP - 11/20/2019 4:17 PM CSTAssociated Problem(s): Tobacco abuse Nicotine patch ET RAILWAY LINE INSTALLER * Assessment & Plan Note - Iza Gordon NP - 11/20/2019 4:17 PM CSTAssociated Problem(s): Peripheral neuropathy Continue gabapentin ET RAILWAY LINE INSTALLER * Assessment & Plan Note - Iza Gordon NP - 11/20/2019 4:16 PM CSTAssociated Problem(s): CHF (congestive heart failure) ([facility] ([facility]) With diastolic dysfunction, new diagnosis. -Continue Lasix. -(11/23) Rpt TTE showed EF 65%, unable to measure PA pressure, normal diastolic function. ET RAILWAY LINE INSTALLER ET RAILWAY LINE INSTALLER ET RAILWAY LINE INSTALLER * Assessment & Plan Note - Iza Gordon NP - 11/20/2019 4:16 PM CSTAssociated Problem(s): COPD with exacerbation ([facility]) ([facility]) Continue inhalers ET RAILWAY LINE INSTALLER * Assessment & Plan Note - Iza Gordon NP - 11/20/2019 4:03 PM CSTAssociated Problem(s): Shortness of breath Concern for poss GVHD and/or poss COPD [...] - Pulm toilet?? - Walking O2 assessment ET RAILWAY LINE INSTALLER ET RAILWAY LINE INSTALLER ET RAILWAY LINE INSTALLER ET RAILWAY LINE INSTALLER ET RAILWAY LINE INSTALLER ET RAILWAY LINE INSTALLER ET RAILWAY LINE INSTALLER ET RAILWAY LINE INSTALLER ET RAILWAY LINE INSTALLER ET RAILWAY LINE INSTALLER * Assessment & Plan Note - Iza Gordon NP - 11/20/2019 3:57 PM CSTAssociated Problem(s): Type 2 diabetes mellitus (HCC) On basaglar 30 units AM and novolog 10 units TID with meals and SSI at home. No longer taking metformin at home. Follows with endocrine outpatient, however he has missed multiple appointments. - BG >400 on admit (pt stated he did not take his AM insulin). - Required Insulin gtt on 11/23, transitioned to 40U Lantus qHS, 15U NPH w/ steroids, 15U Lispro withmeals, HD SSI. - Discharge regimen: 45U lantus qHs + 20U TID AC + HD SSI - Endocrine following, appreciate recs - Hgb A1C 13 on admit. ET RAILWAY LINE INSTALLER ET RAILWAY LINE INSTALLER ET RAILWAY LINE INSTALLER ET RAILWAY LINE INSTALLER ET RAILWAY LINE INSTALLER ET RAILWAY LINE INSTALLER ET RAILWAY LINE INSTALLER ET RAILWAY LINE INSTALLER ET RAILWAY LINE INSTALLER * Assessment & Plan Note - Iza Gordon NP - 11/20/2019 3:57 PM CSTAssociated Problem(s): DVT (deep venous thrombosis) (CMS/HCC) (HCC) Continue xarelto ET RAILWAY LINE INSTALLER * Assessment & Plan Note - Iza Gordon NP - 11/20/2019 3:55 PM CSTAssociated Problem(s): Osteopenia Continue home vitamin D and dietary calcium ET RAILWAY LINE INSTALLER * Assessment & Plan Note - Iza Gordon NP - 11/20/2019 3:53 PM CSTAssociated Problem(s): Zpapg-qdxjsq-qbvy disease (HCC) Continue cellcept 1 g BID and tacrolimus??0.5 [...] at d/c. - Added Azithro 250 3x/weekly ET RAILWAY LINE INSTALLER ET RAILWAY LINE INSTALLER ET RAILWAY LINE INSTALLER ET RAILWAY LINE INSTALLER ET RAILWAY LINE INSTALLER ET RAILWAY LINE INSTALLER ET RAILWAY LINE INSTALLER ET RAILWAY LINE INSTALLER ET RAILWAY LINE INSTALLER ET RAILWAY LINE INSTALLER ET RAILWAY LINE INSTALLER ET RAILWAY LINE INSTALLER * Assessment & Plan Note - Iza Gordon NP - 11/20/2019 3:53 PM CSTAssociated Problem(s): AML s/p Allo SCT in 2008 Induction with 7+3 and HiDAC consolidation x3??s/p decitabine maintenance on the CALGB 63099 protocol. -??Relapsed disease,??status post an allogeneic transplant with busulfan and Cytoxan on the AMD allogeneic study with his sister, 08/27 match; with day 0 on 11/09/2009.?? - Currently in remission. Follows with Dr. Del Valle - On tacro, cellcept - OI ppx: Cont acyclovir. Added vori and bactrim (pt stated he was no longer taking at home). ET RAILWAY LINE INSTALLER ET RAILWAY LINE INSTALLER ET RAILWAY LINE INSTALLER ET RAILWAY LINE INSTALLER documented in this encounter Plan of Treatment Scheduled Orders Name Type Priority Associated Diagnoses Orde r Schedule Urinalysis reflex to microscopic and culture Urine, clean voided Microbiology STAT Lab orders - as needed, STAT collection for 1 Occurrences starting 11/20/2019 C. difficile testing Stool Microbiology STAT Lab orders - as needed, STAT collection for 1 Occurrences starting 11/20/2019 documented as of this encounter Procedures Procedure Name Priority Date/Time Associated Diagnosis Comments POCT GLUCOSE DEVICE Routine 11/28/2019 1 1:[address] RAILWAY LINE INSTALLER POTASSIUM, WHOLE BLOOD STAT 11/28/2019 8:[address] RAILWAY LINE INSTALLER POCT GLUCOSE DEVICE Routine 11/28/2019 8 :[address] RAILWAY LINE INSTALLER BMT CBC Routine 11/28/2019 3:[address] RAILWAY LINE INSTALLER MANUAL DIFFERENTIAL Routine 11/28/2019 3 :[address] RAILWAY LINE INSTALLER CBC WITHOUT DIFFERENTIAL Routine 11/28/2019 3:[address] RAILWAY LINE INSTALLER PHOSPHORUS Routine 11/28/2019 3:[address] RAILWAY LINE INSTALLER MAGNESIUM Routine 11/28/2019 3:[address] RAILWAY LINE INSTALLER BASIC METABOLIC PANEL Routine 11/28/2019 3:[address] RAILWAY LINE INSTALLER POCT GLUCOSE DEVICE Routine 11/27/2019 1 0:[address] RAILWAY LINE INSTALLER POCT GLUCOSE DEVICE Routine 11/27/2019 5 :[address] RAILWAY LINE INSTALLER POCT GLUCOSE DEVICE Routine 11/27/2019 1 1:[address] RAILWAY LINE INSTALLER POTASSIUM LEVEL Routine 11/27/2019 10:[address] RAILWAY LINE INSTALLER VANCOMYCIN LEVEL TROUGH Routine 11/27/2019 10:[address] RAILWAY LINE INSTALLER POCT GLUCOSE DEVICE Routine 11/27/2019 7 :[address] RAILWAY LINE INSTALLER BMT CBC Routine 11/27/2019 4:[address] RAILWAY LINE INSTALLER MANUAL DIFFERENTIAL Routine 11/27/2019 4 :[address] RAILWAY LINE INSTALLER CBC WITHOUT DIFFERENTIAL Routine 11/27/2019 4:[address] RAILWAY LINE INSTALLER PHOSPHORUS Routine 11/27/2019 4:[address] RAILWAY LINE INSTALLER MAGNESIUM Routine 11/27/2019 4:[address] RAILWAY LINE INSTALLER BASIC METABOLIC PANEL Routine 11/27/2019 4:[address] RAILWAY LINE INSTALLER POCT GLUCOSE DEVICE Routine 11/26/2019 8 :[address] RAILWAY LINE INSTALLER POCT GLUCOSE DEVICE Routine 11/26/2019 4 :[address] RAILWAY LINE INSTALLER POCT GLUCOSE DEVICE Routine 11/26/2019 1 1:[address] RAILWAY LINE INSTALLER TACROLIMUS LEVEL, TROUGH Timed 11/26/2019 8:[address] RAILWAY LINE INSTALLER POCT GLUCOSE DEVICE Routine 11/26/2019 7 :[address] RAILWAY LINE INSTALLER BMT CBC Routine 11/26/2019 4:[address] RAILWAY LINE INSTALLER MANUAL DIFFERENTIAL Routine 11/26/2019 4 :[address] RAILWAY LINE INSTALLER CBC WITHOUT DIFFERENTIAL Routine 11/26/2019 4:[address] RAILWAY LINE INSTALLER TYPE AND SCREEN Timed 11/26/2019 4:[address] RAILWAY LINE INSTALLER URIC ACID Timed 11/26/2019 4:[address] RAILWAY LINE INSTALLER PHOSPHORUS Timed 11/26/2019 4:[address] RAILWAY LINE INSTALLER MAGNESIUM Timed 11/26/2019 4:[address] RAILWAY LINE INSTALLER LACTATE DEHYDROGENASE Timed 11/26/2019 4:[address] RAILWAY LINE INSTALLER COMPREHENSIVE METABOLIC PANEL Timed 11/26/2019 4:[address] RAILWAY LINE INSTALLER POCT GLUCOSE DEVICE Routine 11/25/2019 1 1:[address] RAILWAY LINE INSTALLER POCT GLUCOSE DEVICE Routine 11/25/2019 8 :[address] RAILWAY LINE INSTALLER POCT GLUCOSE DEVICE Routine 11/25/2019 5 :[address] RAILWAY LINE INSTALLER ECG 12-LEAD Routine 11/25/2019 1:[address] RAILWAY LINE INSTALLER AML (acute myeloid leukemia) in remission ([facility]) POCT GLUCOSE DEVICE Routine 11/25/2019 1 1:[address] RAILWAY LINE INSTALLER POCT GLUCOSE DEVICE Routine 11/25/2019 8 :[address] RAILWAY LINE INSTALLER POCT GLUCOSE DEVICE Routine 11/25/2019 5 :[address] RAILWAY LINE INSTALLER BMT CBC Routine 11/25/2019 3:[address] RAILWAY LINE INSTALLER CRITICAL RESULT CALLBACK CHEMISTRY Routine 11/25/2019 3:[address] RAILWAY LINE INSTALLER MANUAL DIFFERENTIAL Routine 11/25/2019 3 :[address] RAILWAY LINE INSTALLER CBC WITHOUT DIFFERENTIAL Routine 11/25/2019 3:[address] RAILWAY LINE INSTALLER PHOSPHORUS Routine 11/25/2019 3:[address] RAILWAY LINE INSTALLER MAGNESIUM Routine 11/25/2019 3:[address] RAILWAY LINE INSTALLER VANCOMYCIN LEVEL RANDOM Routine 11/25/2019 3:[address] RAILWAY LINE INSTALLER BASIC METABOLIC PANEL Routine 11/25/2019 3:[address] RAILWAY LINE INSTALLER POCT GLUCOSE DEVICE Routine 11/25/2019 3 :[address] RAILWAY LINE INSTALLER POCT GLUCOSE DEVICE Routine 11/24/2019 1 1:[address] RAILWAY LINE INSTALLER POCT GLUCOSE DEVICE Routine 11/24/2019 9 :[address] RAILWAY LINE INSTALLER POCT GLUCOSE DEVICE Routine 11/24/2019 5 :[address] RAILWAY LINE INSTALLER POCT GLUCOSE DEVICE Routine 11/24/2019 1 :[address] RAILWAY LINE INSTALLER CRITICAL RESULT CALLBACK CHEMISTRY Timed 11/24/2019 12:[address] RAILWAY LINE INSTALLER VANCOMYCIN LEVEL TROUGH Timed 11/24/2019 12:[address] RAILWAY LINE INSTALLER TACROLIMUS LEVEL, TROUGH Timed 11/24/2019 12:[address] RAILWAY LINE INSTALLER POCT GLUCOSE DEVICE Routine 11/24/2019 7 :[address] RAILWAY LINE INSTALLER BMT CBC Routine 11/24/2019 4:[address] RAILWAY LINE INSTALLER MANUAL DIFFERENTIAL Routine 11/24/2019 4 :[address] RAILWAY LINE INSTALLER CBC WITHOUT DIFFERENTIAL Routine 11/24/2019 4:[address] RAILWAY LINE INSTALLER PHOSPHORUS Routine 11/24/2019 4:[address] RAILWAY LINE INSTALLER MAGNESIUM Routine 11/24/2019 4:[address] RAILWAY LINE INSTALLER BASIC METABOLIC PANEL Routine 11/24/2019 4:[address] RAILWAY LINE INSTALLER POCT GLUCOSE DEVICE Routine 11/24/2019 4 :[address] RAILWAY LINE INSTALLER POCT GLUCOSE DEVICE Routine 11/24/2019 2 :[address] RAILWAY LINE INSTALLER POCT GLUCOSE DEVICE Routine 11/24/2019 1 2:[address] RAILWAY LINE INSTALLER POCT GLUCOSE DEVICE Routine 11/23/2019 1 1:[address] RAILWAY LINE INSTALLER POCT GLUCOSE DEVICE Routine 11/23/2019 9 :[address] RAILWAY LINE INSTALLER POCT GLUCOSE DEVICE Routine 11/23/2019 8 :[address] RAILWAY LINE INSTALLER POCT GLUCOSE DEVICE Routine 11/23/2019 6 :[address] RAILWAY LINE INSTALLER TRANSTHORACIC ECHO (TTE) COMPLETE W DOPPLER/CF W CONTRAST Routine 11/23/2019 4:[address] RAILWAY LINE INSTALLER POTASSIUM, WHOLE BLOOD Timed 11/23/2019 2:[address] RAILWAY LINE INSTALLER POCT GLUCOSE DEVICE Routine 11/23/2019 2 :[address] RAILWAY LINE INSTALLER POCT GLUCOSE DEVICE Routine 11/23/2019 1 :[address] RAILWAY LINE INSTALLER POCT GLUCOSE DEVICE Routine 11/23/2019 1 2:[address] RAILWAY LINE INSTALLER POCT GLUCOSE DEVICE Routine 11/23/2019 1 1:[address] RAILWAY LINE INSTALLER POCT GLUCOSE DEVICE Routine 11/23/2019 1 0:[address] RAILWAY LINE INSTALLER POCT GLUCOSE DEVICE Routine 11/23/2019 8 :[address] RAILWAY LINE INSTALLER POCT GLUCOSE DEVICE Routine 11/23/2019 4 :[address] RAILWAY LINE INSTALLER BMT CBC Routine 11/23/2019 3:[address] RAILWAY LINE INSTALLER MANUAL DIFFERENTIAL Routine 11/23/2019 3 :[address] RAILWAY LINE INSTALLER APTT Routine 11/23/2019 3:[address] RAILWAY LINE INSTALLER PROTIME-INR Routine 11/23/2019 3:[address] RAILWAY LINE INSTALLER CBC WITHOUT DIFFERENTIAL Routine 11/23/2019 3:[address] RAILWAY LINE INSTALLER TYPE AND SCREEN Timed 11/23/2019 3:[address] RAILWAY LINE INSTALLER URIC ACID Timed 11/23/2019 3:[address] RAILWAY LINE INSTALLER PHOSPHORUS Timed 11/23/2019 3:[address] RAILWAY LINE INSTALLER MAGNESIUM Timed 11/23/2019 3:[address] RAILWAY LINE INSTALLER LACTATE DEHYDROGENASE Timed 11/23/2019 3:[address] RAILWAY LINE INSTALLER COMPREHENSIVE METABOLIC PANEL Timed 11/23/2019 3:[address] RAILWAY LINE INSTALLER POCT GLUCOSE DEVICE Routine 11/23/2019 2 :[address] RAILWAY LINE INSTALLER POCT GLUCOSE DEVICE Routine 11/23/2019 1 :[address] RAILWAY LINE INSTALLER POCT GLUCOSE DEVICE Routine 11/22/2019 1 0:[address] RAILWAY LINE INSTALLER POCT GLUCOSE DEVICE Routine 11/22/2019 5 :[address] RAILWAY LINE INSTALLER POCT GLUCOSE DEVICE Routine 11/22/2019 1 2:[address] RAILWAY LINE INSTALLER CRITICAL RESULT CALLBACK CHEMISTRY STAT 11/22/2019 9:[address] RAILWAY LINE INSTALLER VANCOMYCIN LEVEL TROUGH STAT 11/22/2019 9:[address] RAILWAY LINE INSTALLER POCT GLUCOSE DEVICE Routine 11/22/2019 7 :[address] RAILWAY LINE INSTALLER POCT GLUCOSE DEVICE Routine 11/22/2019 6 :[address] RAILWAY LINE INSTALLER BMT CBC Routine 11/22/2019 5:[address] RAILWAY LINE INSTALLER MANUAL DIFFERENTIAL Routine 11/22/2019 5 :[address] RAILWAY LINE INSTALLER CBC WITHOUT DIFFERENTIAL Routine 11/22/2019 5:[address] RAILWAY LINE INSTALLER PHOSPHORUS Routine 11/22/2019 5:[address] RAILWAY LINE INSTALLER MAGNESIUM Routine 11/22/2019 5:[address] RAILWAY LINE INSTALLER BASIC METABOLIC PANEL Routine 11/22/2019 5:[address] RAILWAY LINE INSTALLER POCT GLUCOSE DEVICE Routine 11/22/2019 5 :[address] RAILWAY LINE INSTALLER POCT GLUCOSE DEVICE Routine 11/22/2019 1 2:[address] RAILWAY LINE INSTALLER POCT GLUCOSE DEVICE Routine 11/21/2019 9 :[address] RAILWAY LINE INSTALLER HISTOPLASMA ANTIGEN Routine 11/21/2019 5 :[address] RAILWAY LINE INSTALLER POCT GLUCOSE DEVICE Routine 11/21/2019 5 :[address] RAILWAY LINE INSTALLER POCT GLUCOSE DEVICE Routine 11/21/2019 1 2:[address] RAILWAY LINE INSTALLER POCT GLUCOSE DEVICE Routine 11/21/2019 8 :[address] RAILWAY LINE INSTALLER POCT GLUCOSE DEVICE Routine 11/21/2019 6 :[address] RAILWAY LINE INSTALLER POCT GLUCOSE DEVICE Routine 11/21/2019 5 :[address] RAILWAY LINE INSTALLER AEROBIC CULTURE AND GRAM STAIN Routine 11/21/2019 3:[address] RAILWAY LINE INSTALLER BMT CBC Routine 11/21/2019 3:[address] RAILWAY LINE INSTALLER CRITICAL RESULT CALLBACK CHEMISTRY Routine 11/21/2019 3:[address] RAILWAY LINE INSTALLER MANUAL DIFFERENTIAL Routine 11/21/2019 3 :[address] RAILWAY LINE INSTALLER CBC WITHOUT DIFFERENTIAL Routine 11/21/2019 3:[address] RAILWAY LINE INSTALLER PHOSPHORUS Routine 11/21/2019 3:[address] RAILWAY LINE INSTALLER MAGNESIUM Routine 11/21/2019 3:[address] RAILWAY LINE INSTALLER BASIC METABOLIC PANEL Routine 11/21/2019 3:[address] RAILWAY LINE INSTALLER POCT GLUCOSE DEVICE Routine 11/20/2019 8 :[address] RAILWAY LINE INSTALLER ASPERGILLUS GALACTOMANNAN ANTIGEN STAT 11/20/2019 6:[address] RAILWAY LINE INSTALLER MOLD BLOOD CULTURE Timed 11/20/2019 6: 46 [address] [employer] IN[employer]ER POCT GLUCOSE DEVICE Routine 11/20/2019 5 :[address] [employer] CT CHEST W CONTRAST IP Routine 11/20/2019 5 :[address] [employer] POCT GLUCOSE DEVICE Routine 11/20/2019 3 :[address] [employer] POCT GLUCOSE DEVICE Routine 11/20/2019 1 :[address] [employer] XR CHEST 1 VIEW IP Routine 11/20/2019 1:[address] [employer] IN[employer]ER APTT STAT 11/20/2019 12:[address] [employer]ER PROTIME-INR STAT 11/20/2019 12:[address] [employer]ER FIBRINOGEN STAT 11/20/2019 12:[address] [employer] TYPE AND SCREEN STAT 11/20/2019 12:[address] [employer] RESPIRATORY PATHOGEN PANEL Timed 11/20/2019 12:[address] [employer] BLOOD CULTURE Timed 11/20/2019 12:[address] [employer]ER BLOOD CULTURE Timed 11/20/2019 12:[address] [employer] IN[employer]ER ECG 12-LEAD STAT 11/20/2019 12:[address] [employer]ER 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) documented in this encounter Results * POCT glucose (11/28/2019 11:[address] [employer] IN[employer]ER) [facility] Glucose, POC 108 70 - 199 mg/dL [facility] Blood specimen (specimen) 11/28/2019 11:[address] [employer] IN[employer]ER 11/28/2019 11:[address] [employer] Josué Del Valle MD PhD LAB POCT ORDERABLES - DE VICE Final Result Performing Organization Address [facility] Co de Phone Number [facility] [place] [address] * Potassium, whole blood (11/28/2019 8:[address] [employer]ST[employer]ER) [facility] Potassium, bld 3.8 3.3 - 4.9 mmol/L [facility] Blood specimen (specimen) 11/28/2019 8:[address] [employer]ER 11/28/2019 8:[address] [employer] Josué Del Valle MD PhD LAB BLOOD ORDERABLES Fin al Result Performing Organization Address [facility] Co de Phone Number [facility] [place] [address] * POCT glucose (11/28/2019 8:[address] [employer] INSTALLER) [facility] Glucose, POC 185 70 - 199 mg/dL [facility] Blood specimen (specimen) 11/28/2019 8:[address] [employer] IN[employer]ER 11/28/2019 8:[address] [employer] Josué Del Valle MD PhD LAB POCT ORDERABLES - DE VICE Final Result Performing Organization Address [facility] Co de Phone Number [facility] [place] [address] * (ABNORMAL) Manual Differential (11/28/2019 3:[address] [employer] INST[employer]ER) [facility] Differential Manual [facility] Cells Counted 116 [facility] Neutrophil abs 24.2(H) 1.7 - 6.5 K/cumm [facility] Imm gran abs 0.0 0.0 - 0.1 K/cumm [facility] Lymphocyte abs 4.9(H) 0.8 - 3.3 K/cumm [facility] Monocyte abs 0.8 0.2 - 0.8 K/cumm [facility] Neutrophil pct 81.0 % [facility] Comment: Interpretive Data Percent cell count reference ranges are not reported, since discordance with absolute values may lead to misinterpretation of CBC data. Current Interpretive Data was last revised on 2018. Lymphocyte pct 16.4 % [facility] Comment: Interpretive Data Percent cell count reference ranges are not reported, since discordance with absolute values may lead to misinterpretation of CBC data. Current Interpretive Data was last revised on 2018. Monocyte pct 2.6 % [facility] Comment: Interpretive Data Percent cell count reference ranges are not reported, since discordance with absolute values may lead to misinterpretation of CBC data. Current Interpretive Data was last revised on 2018. RBC morphology Present(A) [facility] Anisocytosis Slight(A) [facility] Poikilocytosis Slight(A) [facility] Macrocytes 3-7/HPF(A) [facility] Platelet estimate Adequate [facility] Blood specimen (specimen) 11/28/2019 3:[address] [employer]ER 11/28/2019 3:[address] [employer] Iza Gordon NP LAB BLOOD ORDERABLES Edited Result - Final [facility] Department [place] [address] * (ABNORMAL) CBC without differential (11/28/2019 3:[address] [employer] INST[employer]ER) WBC 29.8(H) 3.8 - 9.9 K/cumm [facility] Hgb 12.1(L) 13.0 - 17.5 g/dL [facility] Hct 38.0(L) 38.9 - 50.3 % [facility] Plt 270 150 - 400 K/cumm [facility] MPV 10.7 9.1 - 12.3 fL [facility] RBC 3.66(L) 4.30 - 5.80 M/cumm [facility] MCV 103.8(H) 81.3 - 96.4 fL [facility] MCH 33.1 27.1 - 33.3 pg [facility] MCHC 31.8(L) 32.3 - 35.7 g/dL [facility] RDW CV 14.8 11.1 - 14.9 % [facility] RDW SD 55.8(H) 35.7 - 48.1 fL [facility] NRBC abs 1.79(H) 0.00 - 0.01 K/cumm [facility] Blood specimen (specimen) 11/28/2019 3:[address] [employer]ER 11/28/2019 3:[address] [employer] Iza Gordon NP LAB BLOOD ORDERABLES Final Result [facility] Department [place] [address] * (ABNORMAL) Basic metabolic panel (11/28/2019 3:[address] [employer] INSTALLER) Sodium 134(L) 135 - 145 mmol/L [facility] Potassium, pl See Comment 3.3 - 4.9 mmol/L [facility] Comment:Credited Hemolyzed Chloride 99 97 - 110 mmol/L [facility] CO2 30 22 - 32 mmol/L [facility] Anion gap 5 2 - 15 mmol/L [facility] BUN 39(H) 8 - 25 mg/dL [facility] Creatinine 0.92 0.80 - 1.30 mg/dL [facility] Glucose 293(H) 70 - 199 mg/dL [facility] Comment: Interpretive Data Fasting glucose >/= 126 [...] 2017. Calcium 9.3 8.5 - 10.3 mg/dL [facility] Blood specimen (specimen) 11/28/2019 3:[address] [employer]ER 11/28/2019 3:[address] [employer] INST[employer]ER Narrative [facility] - 11/28/2019 4:[address] [employer]ER Daily except Saturday and . Morning draw. Iza Adriana Gordon NP LAB BLOOD ORDERABLES Final Result Performing Organization Address City/[facility] Co de Phone Number [facility] [place] [address] * Phosphorus (11/28/2019 3:[address] [employer] INSTALLER) Phosphorus, pl 3.7 2.3 - 4.5 mg/dL [facility] Comment:Hemolyzed result may be falsely elevated Blood specimen (specimen) 11/28/2019 3:[address] [employer] INST[employer]ER 11/28/2019 3:[address] [employer] INST[employer]ER Iza Adriana Gordon NP LAB BLOOD ORDERABLES Final Result Performing Organization Address City/[facility] Co de Phone Number [facility] [place] [address] * Magnesium (11/28/2019 3:[address] [employer] LINE INSTALLER) Magnesium 2.0 1.4 - 2.5 mg/dL [facility] Blood specimen (specimen) 11/28/2019 3:[address] [employer] INST[employer]ER 11/28/2019 3:[address] [employer] LINE INSTALLER [facility] LAB BLOOD ORDERABLES Final Result Performing Organization Address City/[facility] Co de Phone Number [facility] [place] [address] * (ABNORMAL) POCT glucose (11/27/2019 10:[address] [employer] LINE INSTALLER) Glucose, POC 413(H) 70 - 199 mg/dL [facility] Blood specimen (specimen) 11/27/2019 10:[address] [employer] INST[employer]ER 11/27/2019 10:[address] [employer]ER Josué Del Valle MD PhD LAB POCT ORDERABLES - DE VICE Final Result Performing Organization Address [facility] [place] [address] * (ABNORMAL) POCT glucose (11/27/2019 5:[address] [employer] INSTALLER) [facility] Glucose, POC 307(H) 70 - 199 mg/dL [facility] Blood specimen (specimen) 11/27/2019 5:[address] [employer] LINE INSTALLER 11/27/2019 5:[address] [employer] INST[employer]ER Josué Del Valle MD PhD LAB POCT ORDERABLES - DE VICE Final Result Performing Organization Address [facility] [place] [address] * POCT glucose (11/27/2019 11:[address] [employer] LINE INSTALLER) [facility] Glucose, POC 123 70 - 199 mg/dL [facility] Blood specimen (specimen) 11/27/2019 11:[address] [employer] LINE INST[employer]ER 11/27/2019 11:[address] [employer] INST[employer]ER Josué Del Valle MD PhD LAB POCT ORDERABLES - DE VICE Final Result Performing Organization Address [facility] [place] [address] * Vancomycin, trough (11/27/2019 10:[address] [employer] INSTALLER) Vancomycin trough 11.1 10.0 - 20.9 mcg/mL [facility] Blood specimen (specimen) 11/27/2019 10:[address] [employer] INST[employer]ER 11/27/2019 11:[address] [employer] INST[employer]ER Josué Del Valle MD PhD LAB BLOOD ORDERABLES Fin al Result Performing Organization Address [facility] Co de Phone Number [facility] [place] [address] * (ABNORMAL) Potassium (11/27/2019 10:[address] [employer]WAY LINE INSTALLER) [facility] Potassium, pl 5.9(H) 3.3 - 4.9 mmol/L [facility] Comment:Hemolyzed; Potassium value may be falsely elevated by as much as 1.1-1.6 mmol/L. Suggest redraw and reanalysis. Blood specimen (specimen) 11/27/2019 10:[address] [employer] LINE INSTALLER 11/27/2019 11:[address] [employer] INST[employer]ER Josué Del Valle MD PhD LAB BLOOD ORDERABLES Fin al Result Performing Organization Address [facility] Phone Number [facility] Department [place] [address] * (ABNORMAL) POCT glucose (11/27/2019 7:[address] [employer] LINE INSTALLER) [facility] Glucose, POC 201(H) 70 - 199 mg/dL [facility] Blood specimen (specimen) 11/27/2019 7:[address] [employer] LINE INSTALLER 11/27/2019 7:[address] [employer] INST[employer]ER Josué Del Valle MD PhD LAB POCT ORDERABLES - DE VICE Final Result Performing Organization Address [facility] Co de Phone Number [facility] [place] [address] * (ABNORMAL) Manual Differential (11/27/2019 4:[address] [employer] LINE INSTALLER) Differential Manual [facility] Cells Counted 115 [facility] Neutrophil abs 21.4(H) 1.7 - 6.5 K/cumm [facility] Imm gran abs 0.0 0.0 - 0.1 K/cumm [facility] Lymphocyte abs 5.1(H) 0.8 - 3.3 K/cumm [facility] Monocyte abs 1.2(H) 0.2 - 0.8 K/cumm [facility] Neutrophil pct 77.4 % [facility] Comment: Interpretive Data Percent cell count reference ranges are not reported, since discordance with absolute values may lead to misinterpretation of CBC data. Current Interpretive Data was last revised on 2018. Lymphocyte pct 18.3 % [facility] Comment: Interpretive Data Percent cell count reference ranges are not reported, since discordance with absolute values may lead to misinterpretation of CBC data. Current Interpretive Data was last revised on 2018. Monocyte pct 4.3 % [facility] Comment: Interpretive Data Percent cell count reference ranges are not reported, since discordance with absolute values may lead to misinterpretation of CBC data. Current Interpretive Data was last revised on 2018. RBC morphology Present(A) [facility] Anisocytosis Moderate(A) [facility] Poikilocytosis Slight(A) [facility] Macrocytes 8-15/HPF(A) [facility] Schistocytes 1-2/HPF(A) [facility] Platelet estimate Adequate [facility] Blood specimen (specimen) 11/27/2019 4:[address] [employer] LINE INST[employer]ER 11/27/2019 5:[address] [employer] INST[employer]ER Iza Gordon NP LAB BLOOD ORDERABLES Edited Result - Final [facility] Department [place] [address] * (ABNORMAL) CBC without differential (11/27/2019 4:[address] [employer] LINE INSTALLER) WBC 27.7(H) 3.8 - 9.9 K/cumm [facility] Hgb 11.7(L) 13.0 - 17.5 g/dL [facility] Hct 35.9(L) 38.9 - 50.3 % [facility] Plt 266 150 - 400 K/cumm [facility] MPV 10.8 9.1 - 12.3 fL [facility] RBC 3.48(L) 4.30 - 5.80 M/cumm [facility] MCV 103.2(H) 81.3 - 96.4 fL [facility] MCH 33.6(H) 27.1 - 33.3 pg [facility] MCHC 32.6 32.3 - 35.7 g/dL [facility] RDW CV 14.6 11.1 - 14.9 % [facility] RDW SD 54.6(H) 35.7 - 48.1 fL [facility] NRBC abs 2.34(H) 0.00 - 0.01 K/cumm [facility] Blood specimen (specimen) 11/27/2019 4:[address] [employer] INST[employer]ER 11/27/2019 5:[address] [employer] INST[employer]ER Iza Gordon NP LAB BLOOD ORDERABLES Final Result [facility] Department [place] [address] * (ABNORMAL) Basic metabolic panel (11/27/2019 4:[address] [employer] LINE INSTALLER) Sodium 136 135 - 145 mmol/L [facility] Potassium, pl See Comment 3.3 - 4.9 mmol/L [facility] Comment:Credited Hemolyzed Chloride 103 97 - 110 mmol/L [facility] CO2 27 22 - 32 mmol/L [facility] Anion gap 6 2 - 15 mmol/L [facility] BUN 31(H) 8 - 25 mg/dL [facility] Creatinine 0.85 0.80 - 1.30 mg/dL [facility] Glucose 254(H) 70 - 199 mg/dL [facility] Comment: Interpretive Data Fasting glucose >/= 126 [...] 2017. Calcium 8.8 8.5 - 10.3 mg/dL [facility] Blood specimen (specimen) 11/27/2019 4:[address] [employer] LINE INSTALLER 11/27/2019 5:[address] [employer] LINE INSTALLER Narrative [facility] - 11/27/2019 6:[address] [employer] LINE INSTALLER Daily except Saturday and . Morning draw. Iza Adriana Gordon NP LAB BLOOD ORDERABLES Final Result Performing Organization Address City/[facility] Co de Phone Number [facility] Department [place] [address] * Phosphorus (11/27/2019 4:[address] [employer] LINE INSTALLER) Phosphorus, pl 3.0 2.3 - 4.5 mg/dL [facility] Comment:Hemolyzed result may be falsely elevated Blood specimen (specimen) 11/27/2019 4:[address] [employer] LINE INSTALLER 11/27/2019 5:[address] [employer] LINE INSTALLER Iza Adriana Gordon LAB BLOOD ORDERABLES Final Result [facility] [place] [address] * Magnesium (11/27/2019 4:[address] RAILWAY LINE INSTALLER) Magnesium 2.0 1.4 - 2.5 mg/dL [facility] Blood specimen (specimen) 11/27/2019 4:[address] [employer]WAY LINE INSTALLER 11/27/2019 5:[address] [employer]WAY LINE INSTALLER us Iza Gordon FUR TRIMMER LAB BLOOD ORDERABLES Final Result Performing Organization Address [facility] Phone Number [facility] [place] [address] * (ABNORMAL) POCT glucose (11/26/2019 8:[address] RAILWAY LINE INSTALLER) Glucose, POC 254(H) 70 - 199 mg/dL [facility] Blood specimen (specimen) 11/26/2019 8:[address] [employer]WAY LINE INSTALLER 11/26/2019 8:[address] [employer] LINE INSTALLER us Josué Del Valle MD PhD LAB POCT ORDERABLES - DE VICE Final Result Performing Organization Address [facility] [place] [address] * (ABNORMAL) POCT glucose (11/26/2019 4:[address] RA[employer]WAY LINE INSTALLER) Glucose, POC 282(H) 70 - 199 mg/dL [facility] Blood specimen (specimen) 11/26/2019 4:[address] [employer]WAY LINE INSTALLER 11/26/2019 4:[address] [employer] LINE INSTALLER Josué Del Valle MD PhD LAB POCT ORDERABLES - DE VICE Final Result Performing Organization Address [facility] Phone Number [facility] [place] [address] * (ABNORMAL) POCT glucose (11/26/2019 11:[address] RAILWAY LINE INSTALLER) Glucose, POC 271(H) 70 - 199 mg/dL [facility] Blood specimen (specimen) 11/26/2019 11:[address] [employer]WAY LINE INSTALLER 11/26/2019 11:[address] [employer]WAY LINE INSTALLER us Josué Del Valle MD PhD LAB POCT ORDERABLES - DE VICE Final Result Performing Organization Address [facility] Co de Phone Number [facility] Department [place] [address] * Tacrolimus level trough (11/26/2019 8:[address] RAILWAY LINE INSTALLER) Tacrolimus, trough 1.6 ng/mL [facility] Comment: Interpretive Data Testing performed by liquid chromatography-tandem mass spectrometry. ??Therapeutic concentrations vary depending on type of transplanted organ and time elapsed since transplant. ??Typical trough concentrations range from 5-15 ng/mL. ??This test was developed and its performance characteristics determined by the [facility] consistent with CLIA requirements. ??This test has not been cleared or approved by the [place] Food and Drug administration. ??Current interpretive data last reviewed 2019. Blood specimen (specimen) 11/26/2019 8:[address] [employer]WAY LINE INSTALLER 11/26/2019 8:[address] [employer] LINE INSTALLER Iza Gordon FUR TRIMMER LAB BLOOD ORDERABLES Final Result Performing Organization Address [facility] de Phone Number [facility] Department [place] [address] * (ABNORMAL) POCT glucose (11/26/2019 7:[address] RAILWAY LINE INSTALLER) Glucose, POC 312(H) 70 - 199 mg/dL [facility] Blood specimen (specimen) 11/26/2019 7:[address] [employer] LINE INSTALLER 11/26/2019 7:[address] [employer] LINE INSTALLER Josué Del Valle MD PhD LAB POCT ORDERABLES - DE VICE Final Result Performing Organization Address [facility] Co de Phone Number [facility] [place] [address] * Phosphorus (11/26/2019 4:[address] RAILWAY LINE INSTALLER) Phosphorus, pl 3.5 2.3 - 4.5 mg/dL [facility] Blood specimen (specimen) 11/26/2019 4:[address] [employer]WAY LINE INSTALLER 11/26/2019 5:[address] [employer] LINE INSTALLER Josué Del Valle MD PhD LAB BLOOD ORDERABLES Fin al Result Performing Organization Address City/[facility] Co de Phone Number [facility] [place] [address] * Magnesium (11/26/2019 4:[address] RAILWAY LINE INSTALLER) Pathologist [facility] Magnesium 1.8 1.4 - 2.5 mg/dL [facility] Blood specimen (specimen) 11/26/2019 4:[address] RA[employer]WAY LINE INSTALLER 11/26/2019 5:[address] [employer] LINE INSTALLER Josué Del Valle MD PhD LAB BLOOD ORDERABLES Fin al Result Performing Organization Address [facility] de Phone Number [facility] Department [place] [address] * (ABNORMAL) Manual Differential (11/26/2019 4:[address] RAILWAY LINE INSTALLER) [facility] Differential Manual [facility] Cells Counted 115 [facility] Neutrophil abs 17.1(H) 1.7 - 6.5 K/cumm [facility] Imm gran abs 1.0(H) 0.0 - 0.1 K/cumm [facility] Lymphocyte abs 2.7 0.8 - 3.3 K/cumm [facility] Monocyte abs 1.4(H) 0.2 - 0.8 K/cumm [facility] Neutrophil pct 77.4 % [facility] Comment: Interpretive Data Percent cell count reference ranges are not reported, since discordance with absolute values may lead to misinterpretation of CBC data. Current Interpretive Data was last revised on 2018. Lymphocyte pct 12.2 % [facility] Comment: Interpretive Data Percent cell count reference ranges are not reported, since discordance with absolute values may lead to misinterpretation of CBC data. Current Interpretive Data was last revised on 2018. Monocyte pct 6.1 % [facility] Comment: Interpretive Data Percent cell count reference ranges are not reported, since discordance with absolute values may lead to misinterpretation of CBC data. Current Interpretive Data was last revised on 2018. Metamyelocyte pct 2.6 % [facility] Myelocyte pct 1.7 % [facility] RBC morphology Present(A) [facility] Polychromasia 3-7/HPF(A) [facility] Anisocytosis Slight(A) [facility] Poikilocytosis Moderate(A) [facility] Macrocytes 3-7/HPF(A) [facility] Platelet estimate Adequate [facility] Blood specimen (specimen) 11/26/2019 4:[address] [employer] LINE INSTALLER 11/26/2019 5:[address] [employer] LINE INSTALLER Iza Gordon NP LAB BLOOD ORDERABLES Edited Result - Final [facility] Department [place] [address] * (ABNORMAL) CBC without differential (11/26/2019 4:[address] RAILWAY LINE INSTALLER) WBC 22.1(H) 3.8 - 9.9 K/cumm [facility] Hgb 13.1 13.0 - 17.5 g/dL [facility] Hct 40.8 38.9 - 50.3 % [facility] Plt 278 150 - 400 K/cumm [facility] MPV 11.8 9.1 - 12.3 fL [facility] RBC 3.88(L) 4.30 - 5.80 M/cumm [facility] MCV 105.2(H) 81.3 - 96.4 fL [facility] MCH 33.8(H) 27.1 - 33.3 pg [facility] MCHC 32.1(L) 32.3 - 35.7 g/dL [facility] RDW CV 14.9 11.1 - 14.9 % [facility] RDW SD 56.8(H) 35.7 - 48.1 fL [facility] NRBC abs 2.94(H) 0.00 - 0.01 K/cumm [facility] Blood specimen (specimen) 11/26/2019 4:[address] [employer] LINE INSTALLER 11/26/2019 5:[address] [employer] LINE INSTALLER Iza Gordon NP LAB BLOOD ORDERABLES Edited Result - Final Performing Organization Address [facility] [place] [address] * (ABNORMAL) Lactate dehydrogenase (LD) (11/26/2019 4:[address] RAILWAY LINE INSTALLER) Lactate dehydrogenase (LDH) 676(H) 100 - 250 Units/L [facility] Comment:Hemolyzed result may be falsely elevated Blood specimen (specimen) 11/26/2019 4:[address] [employer] LINE INSTALLER 11/26/2019 5:[address] [employer]WAY LINE INSTALLER Narrative [facility] - 11/26/2019 6:[address] [employer] INSTALLER Saturday and only. Morning draw. Result [facility] Iza Adriana Gordon NP LAB BLOOD ORDERABLES Final Result Performing Organization Address [facility] [place] [address] * Uric acid (11/26/2019 4:[address] RAILWAY LINE INSTALLER) Uric acid 3.4 3.0 - 8.0 mg/dL [facility] Blood specimen (specimen) 11/26/2019 4:[address] [employer] LINE INSTALLER 11/26/2019 5:[address] RA[employer]WAY LINE INSTALLER Narrative [facility] - 11/26/2019 6:[address] [employer] LINE INSTALLER Saturday and only. Morning draw. . Iza Adriana Gordon NP LAB BLOOD ORDERABLES Final Result Performing Organization Address City/[facility]/ZIP Co de Phone Number [facility] [place] [address] * (ABNORMAL) Comprehensive metabolic panel (11/26/2019 4:[address] RAILWAY LINE INSTALLER) Sodium 140 135 - 145 mmol/L [facility] Potassium, pl 5.0(H) 3.3 - 4.9 mmol/L [facility] Comment:Hemolyzed; Potassium value may be falsely elevated by as much as 0.3-0.5 mmol/L. Suggest redraw and reanalysis. Chloride 104 97 - 110 mmol/L [facility] CO2 30 22 - 32 mmol/L [facility] Anion gap 6 2 - 15 mmol/L [facility] BUN 30(H) 8 - 25 mg/dL [facility] Creatinine 0.76(L) 0.80 - 1.30 mg/dL [facility] Glucose 274(H) 70 - 199 mg/dL [facility] Comment: Interpretive Data Fasting glucose >/= 126 [...] 2017. Calcium 9.1 8.5 - 10.3 mg/dL [facility] Bilirubin, total 0.3 0.1 - 1.2 mg/dL [facility] Protein, pl 7.0 6.5 - 8.5 g/dL [facility] Albumin 3.7 3.5 - 5.0 g/dL [facility] Alk phos 103 40 - 130 Units/L [facility] ALT 43 7 - 55 Units/L [facility] AST 38 10 - 50 Units/L [facility] Comment:Hemolyzed; result ma y be falsely elevated Blood specimen (specimen) 11/26/2019 4:[address] RAILWAY LINE INSTALLER 11/26/2019 5:[address] [employer]ILWAY LINE INSTALLER Narrative [facility] - 11/26/2019 6:[address] [employer]ILWAY LINE INSTALLER Saturday and only. Morning draw. Iza Gordon NP LAB BLOOD ORDERABLES Final Result Performing Organization Address [facility] [place] [address] * Type and screen (11/26/2019 4:[address] RAILWAY LINE INSTALLER) Pathologist [facility] ABO Rh A Positive [facility] Ursula, indirect Negative [facility] Blood specimen (specimen) 11/26/2019 4:[address] [employer]ILWAY LINE INSTALLER 11/26/2019 5:[address] RAILWAY LINE INSTALLER Narrative [facility] - 11/26/2019 6:[address] RAILWAY LINE INSTALLER Has the patient had Daratumumab (Darzalex) in the past 6 months?->Unknown Iza Gordon NP LAB BLOOD BANK TEST ORDERABLES Final Result Performing Organization Address [facility] Co de Phone Number [facility] Department [place] [address] * (ABNORMAL) POCT glucose (11/25/2019 11:[address] RAILWAY LINE INSTALLER) [facility] Glucose, POC 202(H) 70 - 199 mg/dL [facility] Blood specimen (specimen) 11/25/2019 11:[address] [employer]ILWAY LINE INSTALLER 11/25/2019 11:[address] [employer]ILWAY LINE INSTALLER Josué Del Valle MD PhD LAB POCT ORDERABLES - DE VICE Final Result Performing Organization Address [facility] [place] [address] * (ABNORMAL) POCT glucose (11/25/2019 8:[address] RAILWAY LINE INSTALLER) Pathologist [facility] Glucose, POC 272(H) 70 - 199 mg/dL [facility] Blood specimen (specimen) 11/25/2019 8:[address] RAILWAY LINE INSTALLER 11/25/2019 8:[address] RAILWAY LINE INSTALLER us Josué Del Valle MD PhD LAB POCT ORDERABLES - DE VICE Final Result Performing Organization Address [facility] Co de Phone Number [facility] [place] [address] * (ABNORMAL) POCT glucose (11/25/2019 5:[address] RAILWAY LINE INSTALLER) Pathologist [facility] Glucose, POC 305(H) 70 - 199 mg/dL [facility] Blood specimen (specimen) 11/25/2019 5:[address] RAILWAY LINE INSTALLER 11/25/2019 5:[address] RAILWAY LINE INSTALLER us Josué Del Valle MD PhD LAB POCT ORDERABLES - DE VICE Final Result Performing Organization Address [facility] Co fl Phone Number [facility] [place] [address] * ECG 12 lead (11/25/2019 1:[address] RAILWAY LINE INSTALLER) [facility] Ventricular Rate EKG/Min 71 BPM [facility] Atrial Rate 71 BPM [facility] [place]-Interval (MSEC) 102 ms [facility] QRS-Interval (MSEC) 102 ms [facility] QT-Interval (MSEC) 374 ms [facility] QTc 406 ms [facility] P [place] 17 degrees [facility] R [place] 73 degrees [facility] T [place] 58 degrees [facility] Diagnosis Sinus rhythm with short [place] relative RAD, consider lung dx V6 lead is likely misplaced When compared with ECG of 20-NOV-2019 12:08, T wave amplitude has decreased in Lateral leads This ECG was personally interpreted by the attending physician indicated below Confirmed by JOSE/BRI PABLO ([id number]) on 11/26/2019 11:55:42 AM [facility] 11/25/2019 1:[address] RAILWAY LINE INSTALLER 11/26/2019 11:[address] RAILWAY LINE INSTALLER us Lissy Warner FUR TRIMMER ECG ORDERABLES Final Res ult Performing Organization Address [facility]/ZIP Co de Phone Number [facility] * POCT glucose (11/25/2019 11:[address] RAILWAY LINE INSTALLER) Glucose, POC 121 70 - 199 mg/dL [facility] Blood specimen (specimen) 11/25/2019 11:[address] RAILWAY LINE INSTALLER 11/25/2019 11:[address] RAILWAY LINE INSTALLER us Josué Del Valle MD PhD LAB POCT ORDERABLES - DE VICE Final Result Performing Organization Address [facility]/[place] [address] * (ABNORMAL) POCT glucose (11/25/2019 8:[address] RAILWAY LINE INSTALLER) Glucose, POC 213(H) 70 - 199 mg/dL [facility] Blood specimen (specimen) 11/25/2019 8:[address] RAILWAY LINE INSTALLER 11/25/2019 8:[address] RAILWAY LINE INSTALLER us Josué Del Valle MD PhD LAB POCT ORDERABLES - DE VICE Final Result Performing Organization Address [facility] Co fl Phone Number [facility] [place] [address] * (ABNORMAL) POCT glucose (11/25/2019 5:[address] RAILWAY LINE INSTALLER) Glucose, POC 425(H) 70 - 199 mg/dL [facility] Blood specimen (specimen) 11/25/2019 5:[address] RAILWAY LINE INSTALLER 11/25/2019 5:[address] RAILWAY LINE INSTALLER us Josué Del Valle MD PhD LAB POCT ORDERABLES - DE VICE Final Result Performing Organization Address [facility] Co fl Phone Number [facility] [place] [address] * Critical Result Callback Chemistry (11/25/2019 3:[address] RAILWAY LINE INSTALLER) Date Notified [id number] [facility] Time Notified 422 [facility] TestName glucose [facility] Called/Read Back narcisa rivero [facility] Credentials RN [facility] Called By nikki [facility] Blood specimen (specimen) 11/25/2019 3:[address] RAILWAY LINE INSTALLER 11/25/2019 3:[address] RAILWAY LINE INSTALLER Iza Gordon NP LAB BLOOD ORDERABLES Final Result [facility] Department [place] [address] * (ABNORMAL) Manual Differential (11/25/2019 3:[address] RAILWAY LINE INSTALLER) Differential Manual [facility] Cells Counted 113 [facility] Neutrophil abs 16.6(H) 1.7 - 6.5 K/cumm [facility] Imm gran abs 1.2(H) 0.0 - 0.1 K/cumm [facility] Lymphocyte abs 0.9 0.8 - 3.3 K/cumm [facility] Monocyte abs 1.2(H) 0.2 - 0.8 K/cumm [facility] Neutrophil pct 83.2 % [facility] Comment: Interpretive Data Percent cell count reference ranges are not reported, since discordance with absolute values may lead to misinterpretation of CBC data. Current Interpretive Data was last revised on 2018. Lymphocyte pct 4.4 % [facility] Comment: Interpretive Data Percent cell count reference ranges are not reported, since discordance with absolute values may lead to misinterpretation of CBC data. Current Interpretive Data was last revised on 2018. Monocyte pct 6.2 % [facility] Comment: Interpretive Data Percent cell count reference ranges are not reported, since discordance with absolute values may lead to misinterpretation of CBC data. Current Interpretive Data was last revised on 2018. Metamyelocyte pct 0.9 % [facility] Myelocyte pct 4.4 % [facility] Promyelocyte pct 0.9 % [facility] RBC morphology Present(A) [facility] Anisocytosis Moderate(A) [facility] Poikilocytosis Slight(A) [facility] Macrocytes 3-7/HPF(A) [facility] Platelet estimate Adequate [facility] Blood specimen (specimen) 11/25/2019 3:[address] RAILWAY LINE INSTALLER 11/25/2019 3:[address] RAILWAY LINE INSTALLER Iza Gordon NP LAB BLOOD ORDERABLES Edited Result - Final [facility] Department [place] [address] * (ABNORMAL) CBC without differential (11/25/2019 3:[address] RAILWAY LINE INSTALLER) WBC 19.9(H) 3.8 - 9.9 K/cumm [facility] Hgb 12.0(L) 13.0 - 17.5 g/dL [facility] Hct 37.9(L) 38.9 - 50.3 % [facility] Plt 265 150 - 400 K/cumm [facility] MPV 11.4 9.1 - 12.3 fL [facility] RBC 3.63(L) 4.30 - 5.80 M/cumm [facility] MCV 104.4(H) 81.3 - 96.4 fL [facility] MCH 33.1 27.1 - 33.3 pg [facility] MCHC 31.7(L) 32.3 - 35.7 g/dL [facility] RDW CV 14.6 11.1 - 14.9 % [facility] RDW SD 56.0(H) 35.7 - 48.1 fL [facility] NRBC abs 1.99(H) 0.00 - 0.01 K/cumm [facility] Blood specimen (specimen) 11/25/2019 3:[address] RAILWAY LINE INSTALLER 11/25/2019 3:[address] RAILWAY LINE INSTALLER Iza Gordon NP LAB BLOOD ORDERABLES Final Result Performing Organization Address City/[facility]/ZIP Co de Phone Number [facility] Department [place] [address] * (ABNORMAL) Basic metabolic panel (11/25/2019 3:[address] RAILWAY LINE INSTALLER) Sodium 133(L) 135 - 145 mmol/L [facility] Potassium, pl 5.2(H) 3.3 - 4.9 mmol/L [facility] Comment:Hemolyzed; Potassium value may be falsely elevated by as much as 0.6-1.0 mmol/L. Suggest redraw and reanalysis. Chloride 96(L) 97 - 110 mmol/L [facility] CO2 28 22 - 32 mmol/L [facility] Anion gap 9 2 - 15 mmol/L [facility] BUN 35(H) 8 - 25 mg/dL [facility] Creatinine 0.84 0.80 - 1.30 mg/dL [facility] Glucose 528(C) 70 - 199 mg/dL [facility] Comment: Interpretive Data Fasting glucose >/= 126 [...] interpretive data was last revised 2017. Calcium 8.5 8.5 - 10.3 mg/dL [facility] Blood specimen (specimen) 11/25/2019 3:[address] RAILWAY LINE INSTALLER 11/25/2019 3:[address] RAILWAY LINE INSTALLER Narrative [facility] - 11/25/2019 4:[address] RAILWAY LINE INSTALLER Daily except Saturday and . Morning draw. Iza Gordon NP LAB BLOOD ORDERABLES Final Result Performing Organization Address [facility]/ZIP Co de Phone Number ZULEMA [facility] Department [place] [address] * Phosphorus (11/25/2019 3:[address] RAILWAY LINE INSTALLER) [facility] Phosphorus, pl 2.6 2.3 - 4.5 mg/dL [facility] Blood specimen (specimen) 11/25/2019 3:[address] RAILWAY LINE INSTALLER 11/25/2019 3:[address] RAILWAY LINE INSTALLER Iza Adriana Gordon FUR TRIMMER LAB [place] [address] * Magnesium (11/25/2019 3:[address] RAILWAY LINE INSTALLER) [facility] Magnesium 1.9 1.4 - 2.5 mg/dL [facility] Blood specimen (specimen) 11/25/2019 3:[address] RAILWAY LINE INSTALLER 11/25/2019 3:[address] RAILWAY LINE INSTALLER Iza Adriana Gordon FUR TRIMMER LAB BLOOD ORDERABLES Final Result Performing Organization Address City/[facility]/ZIP Co de Phone Number [facility] [place] [address] * Vancomycin, random (11/25/2019 3:[address] RAILWAY LINE INSTALLER) [facility] Vancomycin random 16.3 mcg/mL [facility] Blood specimen (specimen) 11/25/2019 3:[address] RAILWAY LINE INSTALLER 11/25/2019 3:[address] RAILWAY LINE INSTALLER Iza Adriana Gordon FUR TRIMMER LAB BLOOD ORDERABLES Final Result Performing Organization Address City/[facility]/[place] [address] * (ABNORMAL) POCT glucose (11/25/2019 3:[address] RAILWAY LINE INSTALLER) Glucose, POC 493(C) 70 - 199 mg/dL [facility] Glucose comment 1 Doctor Notified [facility] Blood specimen (specimen) 11/25/2019 3:[address] RAILWAY LINE INSTALLER 11/25/2019 3:[address] RAILWAY LINE INSTALLER us Josué Del Valle MD PhD LAB POCT ORDERABLES - DE VICE Final Result Performing Organization Address [facility] Co de Phone Number [facility] [place] [address] * (ABNORMAL) POCT glucose (11/24/2019 11:[address] RAILWAY LINE INSTALLER) Glucose, POC 376(H) 70 - 199 mg/dL [facility] Blood specimen (specimen) 11/24/2019 11:[address] RAILWAY LINE INSTALLER 11/24/2019 11:[address] RAILWAY LINE INSTALLER us oJsué Del Valle MD PhD LAB POCT ORDERABLES - DE VICE Final Result Performing Organization Address [facility] Co de Phone Number [facility] [place] [address] * (ABNORMAL) POCT glucose (11/24/2019 9:[address] RAILWAY LINE INSTALLER) Glucose, POC 354(H) 70 - 199 mg/dL [facility] Blood specimen (specimen) 11/24/2019 9:[address] RAILWAY LINE INSTALLER 11/24/2019 9:[address] RAILWAY LINE INSTALLER Josué Del Valle MD PhD LAB POCT ORDERABLES - DE VICE Final Result Performing Organization Address City/[facility] [place] [address] * POCT glucose (11/24/2019 5:[address] RAILWAY LINE INSTALLER) Glucose, POC 195 70 - 199 mg/dL [facility] Blood specimen (specimen) 11/24/2019 5:[address] RAILWAY LINE INSTALLER 11/24/2019 5:[address] RAILWAY LINE INSTALLER Josué Del Valle MD PhD LAB POCT ORDERABLES - DE VICE Final Result Performing Organization Address [facility] Co de Phone Number [facility] Department [place] [address] * (ABNORMAL) POCT glucose (11/24/2019 1:[address] RAILWAY LINE INSTALLER) Glucose, POC 211(H) 70 - 199 mg/dL [facility] Blood specimen (specimen) 11/24/2019 1:[address] RAILWAY LINE INSTALLER 11/24/2019 1:[address] RAILWAY LINE INSTALLER Josué Del Valle MD PhD LAB POCT ORDERABLES - DE VICE Final Result Performing Organization Address [facility] Phone Number [facility] [place] [address] * Critical Result Callback Chemistry (11/24/2019 12:[address] RAILWAY LINE INSTALLER) Date Notified [id number] [facility] Time Notified 12:59 [facility] TestName Vancomycin Tr [facility] Called/Read Back Critical result called to and read back by Marisa CARLOS) on 11/24/2019 12:59:[address] RAILWAY LINE INSTALLER to . [facility]ULE[facility] Credentials [facility] Called By ZULEMA [facility] Blood specimen (specimen) 11/24/2019 12:[address] RAILWAY LINE INSTALLER 11/24/2019 12:[address] RAILWAY LINE INSTALLER Josué Del Valle MD PhD LAB BLOOD ORDERABLES Fin al Result Performing Organization Address [facility] Co de Phone Number [facility] [place] [address] * (ABNORMAL) Vancomycin, trough Please draw before 4th dose of 1000 mg. (11/24/2019 12:[address] RAILWAY LINE INSTALLER) Vancomycin trough 22.7(C) 10.0 - 20.9 mcg/mL [facility] Blood specimen (specimen) 11/24/2019 12:[address] RAILWAY LINE INSTALLER 11/24/2019 12:[address] RAILWAY LINE INSTALLER Narrative [facility] - 11/24/2019 12:[address] RAILWAY LINE INSTALLER Please draw before 4th dose of 1000 mg. Josué Del Valle MD PhD LAB BLOOD ORDERABLES Fin al Result Performing Organization Address City/[facility]/ZIP Co de Phone Number [facility] Department [place] [address] * Tacrolimus level trough (11/24/2019 12:[address] RAILWAY LINE INSTALLER) Pathologist [facility] Tacrolimus, trough 1.0 ng/mL [facility] Comment: Interpretive Data Testing performed by liquid chromatography-tandem mass spectrometry. ??Therapeutic concentrations vary depending on type of transplanted organ and time elapsed since transplant. ??Typical trough concentrations range from 5-15 ng/mL. ??This test was developed and its performance characteristics determined by the [facility] consistent with CLIA requirements. ??This test has not been cleared or approved by the [place] Food and Drug administration. ??Current interpretive data last reviewed 2019. Blood specimen (specimen) 11/24/2019 12:[address] RAILWAY LINE INSTALLER 11/24/2019 12:[address] RAILWAY LINE INSTALLER Iza Gordon NP LAB BLOOD ORDERABLES Final Result Performing Organization Address [facility]/ZIP Co de Phone Number [facility] Department [place] [address] * (ABNORMAL) POCT glucose (11/24/2019 7:[address] RAILWAY LINE INSTALLER) Glucose, POC 211(H) 70 - 199 mg/dL [facility] Blood specimen (specimen) 11/24/2019 7:[address] RAILWAY LINE INSTALLER 11/24/2019 7:[address] RAILWAY LINE INSTALLER us Josué Del Valle MD PhD LAB POCT ORDERABLES - DE VICE Final Result [facility] Department [place] [address] * (ABNORMAL) Manual Differential (11/24/2019 4:[address] RAILWAY LINE INSTALLER) Differential Manual [facility] Cells Counted 113 [facility] Neutrophil abs 17.8(H) 1.7 - 6.5 K/cumm [facility] Imm gran abs 0.2(H) 0.0 - 0.1 K/cumm [facility] Lymphocyte abs 2.7 0.8 - 3.3 K/cumm [facility] Monocyte abs 0.8 0.2 - 0.8 K/cumm [facility] Neutrophil pct 83.2 % [facility] Comment: Interpretive Data Percent cell count reference ranges are not reported, since discordance with absolute values may lead to misinterpretation of CBC data. Current Interpretive Data was last revised on 2018. Lymphocyte pct 12.4 % [facility] Comment: Interpretive Data Percent cell count reference ranges are not reported, since discordance with absolute values may lead to misinterpretation of CBC data. Current Interpretive Data was last revised on 2018. Monocyte pct 3.5 % [facility] Comment: Interpretive Data Percent cell count reference ranges are not reported, since discordance with absolute values may lead to misinterpretation of CBC data. Current Interpretive Data was last revised on 2018. Metamyelocyte pct 0.9 % [facility] RBC morphology Present(A) [facility] Anisocytosis Slight(A) [facility] Poikilocytosis Slight(A) [facility] Platelet estimate Adequate [facility] Morphology scrn See Comment [facility] Comment:PLT: Although platet s are clumped on smear; estimate appears adequate to increased in number. Blood specimen (specimen) 11/24/2019 4:[address] RAILWAY LINE INSTALLER 11/24/2019 4:[address] RAILWAY LINE INSTALLER Iza Gordon NP LAB BLOOD ORDERABLES Edited Result - Final [facility] [place] [address] * (ABNORMAL) CBC without differential (11/24/2019 4:[address] RAILWAY LINE INSTALLER) WBC 21.5(H) 3.8 - 9.9 K/cumm [facility] Hgb 12.4(L) 13.0 - 17.5 g/dL [facility] Hct 38.4(L) 38.9 - 50.3 % [facility] Plt 268 150 - 400 K/cumm [facility] MPV 11.4 9.1 - 12.3 fL [facility] RBC 3.73(L) 4.30 - 5.80 M/cumm [facility] MCV 102.9(H) 81.3 - 96.4 fL [facility] MCH 33.2 27.1 - 33.3 pg [facility] MCHC 32.3 32.3 - 35.7 g/dL [facility] RDW CV 14.3 11.1 - 14.9 % [facility] RDW SD 53.9(H) 35.7 - 48.1 fL [facility] NRBC abs 1.02(H) 0.00 - 0.01 K/cumm [facility] Blood specimen (specimen) 11/24/2019 4:[address] RAILWAY LINE INSTALLER 11/24/2019 4:[address] RAILWAY LINE INSTALLER Iza Gordon NP LAB BLOOD ORDERABLES Final Result [facility] [place] [address] * (ABNORMAL) Basic metabolic panel (11/24/2019 4:[address] RAILWAY LINE INSTALLER) Sodium 140 135 - 145 mmol/L [facility] Potassium, pl 5.0(H) 3.3 - 4.9 mmol/L [facility] Comment: Hemolyzed; Potassium value may be falsely elevated by as much as 0.6-1.0 mmol/L. ??Suggest redraw and reanalysis. Repeated and Verified Chloride 102 97 - 110 mmol/L [facility] Comment:Repeated and Verifie d CO2 31 22 - 32 mmol/L [facility] Anion gap 7 2 - 15 mmol/L [facility] BUN 28(H) 8 - 25 mg/dL [facility] Creatinine 0.75(L) 0.80 - 1.30 mg/dL [facility] Glucose 243(H) 70 - 199 mg/dL [facility] Comment: Interpretive Data Fasting glucose >/= 126 [...] 2017. Calcium 9.0 8.5 - 10.3 mg/dL [facility] Blood specimen (specimen) 11/24/2019 4:[address] RAILWAY LINE INSTALLER 11/24/2019 4:[address] RAILWAY LINE INSTALLER Narrative [facility] - 11/24/2019 5:[address] RAILWAY LINE INSTALLER Daily except Saturday and . Morning draw. Iza Gordon NP LAB BLOOD ORDERABLES Final Result [facility] Department [place] [address] * Phosphorus (11/24/2019 4:[address] RAILWAY LINE INSTALLER) Phosphorus, pl 3.4 2.3 - 4.5 mg/dL [facility] Blood specimen (specimen) 11/24/2019 4:[address] RAILWAY LINE INSTALLER 11/24/2019 4:[address] RAILWAY LINE INSTALLER Izaradha Gordon FUR TRIMMER LAB BLOOD ORDERABLES Final Result Performing Organization Address [facility] Phone Number [facility] [place] [address] * Magnesium (11/24/2019 4:[address] RAILWAY LINE INSTALLER) Magnesium 1.9 1.4 - 2.5 mg/dL [facility] Blood specimen (specimen) 11/24/2019 4:[address] RAILWAY LINE INSTALLER 11/24/2019 4:[address] RAILWAY LINE INSTALLER Iza Adriana Heidi FUR TRIMMER LAB BLOOD ORDERABLES Final Result Performing Organization Address [facility] Phone Number [facility] [place] [address] * (ABNORMAL) POCT glucose (11/24/2019 4:[address] RAILWAY LINE INSTALLER) Glucose, POC 237(H) 70 - 199 mg/dL [facility] Blood specimen (specimen) 11/24/2019 4:[address] RAILWAY LINE INSTALLER 11/24/2019 4:[address] RAILWAY LINE INSTALLER us Josué Del Valle MD PhD LAB POCT ORDERABLES - DE VICE Final Result Performing Organization Address [facility] Phone Number [facility] Department [place] [address] * (ABNORMAL) POCT glucose (11/24/2019 2:[address] RAILWAY LINE INSTALLER) Glucose, POC 225(H) 70 - 199 mg/dL [facility] Blood specimen (specimen) 11/24/2019 2:[address] RAILWAY LINE INSTALLER 11/24/2019 2:[address] RAILWAY LINE INSTALLER Josué Del Valle MD PhD LAB POCT ORDERABLES - DE VICE Final Result Performing Organization Address [facility]/ZIP Co de Phone Number [facility] [place] [address] * (ABNORMAL) POCT glucose (11/24/2019 12:[address] RAILWAY LINE INSTALLER) Glucose, POC 205(H) 70 - 199 mg/dL [facility] Blood specimen (specimen) 11/24/2019 12:[address] RAILWAY LINE INSTALLER 11/24/2019 12:[address] RAILWAY LINE INSTALLER us Josué Del Valle MD PhD LAB POCT ORDERABLES - DE VICE Final Result Performing Organization Address [facility] [place] [address] * (ABNORMAL) POCT glucose (11/23/2019 11:[address] RAILWAY LINE INSTALLER) Glucose, POC 241(H) 70 - 199 mg/dL [facility] Blood specimen (specimen) 11/23/2019 11:[address] RAILWAY LINE INSTALLER 11/23/2019 11:[address] RAILWAY LINE INSTALLER us Josué Del Valle MD PhD LAB POCT ORDERABLES - DE VICE Final Result Performing Organization Address [facility] [place] [address] * (ABNORMAL) POCT glucose (11/23/2019 9:[address] RAILWAY LINE INSTALLER) Glucose, POC 367(H) 70 - 199 mg/dL [facility] Blood specimen (specimen) 11/23/2019 9:[address] RAILWAY LINE INSTALLER 11/23/2019 9:[address] RAILWAY LINE INSTALLER us Josué Del Valle MD PhD LAB POCT ORDERABLES - DE VICE Final Result Performing Organization Address City/[facility] Co de Phone Number [facility] [place] [address] * (ABNORMAL) POCT glucose (11/23/2019 8:[address] RAILWAY LINE INSTALLER) Glucose, POC 423(H) 70 - 199 mg/dL [facility] Blood specimen (specimen) 11/23/2019 8:[address] RAILWAY LINE INSTALLER 11/23/2019 8:[address] RAILWAY LINE INSTALLER us Josué Del Valle MD PhD LAB POCT ORDERABLES - DE VICE Final Result Performing Organization Address [facility] Co fl Phone Number [facility] [place] [address] * (ABNORMAL) POCT glucose (11/23/2019 6:[address] RAILWAY LINE INSTALLER) Glucose, POC 473(C) 70 - 199 mg/dL [facility] Glucose comment 1 RN Notified [facility] Blood specimen (specimen) 11/23/2019 6:[address] RAILWAY LINE INSTALLER 11/23/2019 6:[address] RAILWAY LINE INSTALLER us Josué Del Valle MD PhD LAB POCT ORDERABLES - DE VICE Final Result Performing Organization Address [facility] Phone Number [facility] [place] [address] * TRANSTHORACIC ECHO (TTE) COMPLETE W DOPPLER/CF W CONTRAST (11/23/2019 4:[address] RAILWAY LINE INSTALLER) Anatomical Region Laterality Modality Ultrasound 11/23/2019 12:[address] RAILWAY LINE INSTALLER Narrative 11/23/2019 5:[address] RAILWAY LINE INSTALLER Patient name: Bri Jones Date of test: 11/23/2019 Type of test: TTE w/Doppler [facility] #: [id number] Date of : 1965 (M) Tailer Off: Ekta Bullock RDCS Referring Physician: LIZZETTE GRIJALVA MD Contrast Agent: 2.3 ml Optison Administered, (0.7 ml wasted). Contrast Administered by: floor rn Supervised/Interpreted by: Hannah Chanel MD Diagnosis: Location: [facility] Reason for test: SOB, pulmonary edema suspected - room 86 MV Structure: Normal, ?MV Motion: Normal, ?? Mitral Annulus: Normal AV Structure: tricuspid and is Normal, ?? AV Motion: Normal Aotic root: Normal (3.1cm at sinuses), ?TM: Normal, ?? PV: Normal Valvular Vegetations: none seen, ?Mass/Thrombi: none seen RA: Normal Measurements: ?M-Mode ?Normal ? Aotic Root: ? <3.8 ? LA: ? <4.0 ? RV: ? <2.8 ? LV(ED): ? <5.7 ? LV(ES): ? Variable ?2D Linear Normal ? Aotic Root: 3.1 cm ?<4.0 ? Ao Indexed: 1.6 cm/M2 <2.0 ? LA: ? <4.0 ? RV: ? 2.6 cm ?<4.2 ? LV(ED): ? 4.9 cm ?<5.9 ? LV(ES): ? 3.4 cm ?<4.0 ?2D Vol. ?? Normal ?Indexed ?? Indexed Normal RA: ? 20.0 ml ? 10.0 ml/M2 ?11-39 ? LA: ? 19.0 ml ? 9.5 ml/M2 ? 16-34 ? RV: ? <12.7 ? LV(ED): ? 75.0 ml ?? 62-150 ?37.6 ml/M2 ?<75 ? LV(ES): ? 26.0 ml ?? 21-61 ? 13.0 ml/M2 ?<32 ?3D Vol. ? Indexed Normal LV(ED): ?<75 ? LV(ES): ?<32 ? LV EF: 65 % ?? (Normal: >=52%) ?? LV Septum: 0.6 cm ?(Normal: <1.0 cm) Wall Motion Scoring (1=Normal 2=Hypo 3=Akinetic 4=Dyskin./Aneurysm 0=Not visualized) Parasternal Long [place]:MAS=1 BAS=1 MP=1 BP=1 Parasternal Short [place]:MAS=1 MS=1 MO=1 MP=1 ML=1 MA=1 Apical 4 Chambers:=1 MS=1 BS=1 BL=1 MO=1 AL=1 Apical 2 Chambers:AI=1 MO=1 BI=1 BA=1 MA=1 AA=1 LV Global Longitudinal Strain: RV Global Longitudinal Strain: LV Function: Normal LV Ejection Fraction, (EF=52-72%) RV Function: Normal Septal Motion: Normal Pericardial Effusion: trivial posterior Atrial Septum: Normal DOPPLER/COLOR FOLOW DOPPLER RESULTS: Diastolic Function: normal Tricuspid Valve: mild TV regurgitation Pulmonic Valve: Mild [place] AV Regurgitation: No AR seen AV Stenosis: no AV Area: ??cm2 AV Pressure Gradient (mmHg): Mean: 0, Peak:0 MV Regurgitation: Mild MR MV Stenosis: no MS MV Area: ??cm2 MV Pressure Gradient (mmHg): Mean: 0 MV ERO: ??cm Regurg. Vol.: ??ml/beat Regurg. Frac.: ??% PA Pressure: ??mmHg DOPPLER/COLOR FOLOW DOPPLER COMMENTS: No AR seen, Mild MR, no , no MS, mild TV regurgitation, Mild AZ. Diastolic function: normal CONTRAST: 2.3 ml Optison Administered, (0.7 ml wasted). SUMMARY: Normal LV and RV size and systolic function. LVEF 65%. Normal LV wall thickness. Normal biatrial size. No significant valvular abnormalities. Normal diastolic function. Normal Inferior vena cava, est. RAP 8mmHg. Unable to estimate PASP due to inadequate TR jet. Normal aortic root size. Confirmed on ??11/23/2019 - 17:16:13 by Hannah Chanel MD ?? Miner Assistant: Arsen Smith MD By signing this report, the attending paste up copy camera operator certifies that he or she has personally supervised and interpreted the echocardiogram and has reviewed and or edited and agrees with the written comments contained within the report. Procedure Note Hannah Chanel MD - 11/23/2019 Patient name: Bri Jones Date of test: 11/23/2019 Type of test: TTE w/Doppler [facility] #: [id number] Date of : 1965 (M) Tailer Off: Ekta Bullock NIKKI Referring Physician: LIZZETTE GRIJALVA MD Contrast Agent: 2.3 ml Optison Administered, (0.7 ml wasted). Contrast Administered by: seullen rn Supervised/Interpreted by: Hannah Chanel MD Diagnosis: Location: [facility] Reason for test: SOB, pulmonary edema suspected - room 9722 MV Structure: Normal, MV Motion: Normal, Mitral Annulus: Normal AV Structure: tricuspid and is Normal, AV Motion: Normal Aotic root: Normal (3.1cm at sinuses), TM: Normal, PV: Normal Valvular Vegetations: none seen, Mass/Thrombi: none seen RA: Normal Measurements: M-Mode Normal Aotic Root: <3.8 LA: <4.0 RV: <2.8 LV(ED): <5.7 LV(ES): Variable 2D Linear Normal Aotic Root: 3.1 cm <4.0 Ao Indexed: 1.6 cm/M2 <2.0 LA: <4.0 RV: 2.6 cm <4.2 LV(ED): 4.9 cm <5.9 LV(ES): 3.4 cm <4.0 2D Vol. Normal Indexed Indexed Normal RA: 20.0 ml 10.0 ml/M2 11-39 LA: 19.0 ml 9.5 ml/M2 16-34 RV: <12.7 LV(ED): 75.0 ml 62-150 37.6 ml/M2 <75 LV(ES): 26.0 ml 21-61 13.0 ml/M2 <32 3D Vol. Indexed Normal LV(ED): <75 LV(ES): <32 LV EF: 65 % (Normal: >=52%) LV Septum: 0.6 cm (Normal: <1.0 cm) Wall Motion Scoring (1=Normal 2=Hypo 3=Akinetic 4=Dyskin./Aneurysm 0=Not visualized) Parasternal Long [place]:MAS=1 BAS=1 MP=1 BP=1 Parasternal Short [place]:MAS=1 MS=1 MO=1 MP=1 ML=1 MA=1 Apical 4 Chambers:=1 MS=1 BS=1 BL=1 MO=1 AL=1 Apical 2 Chambers:AI=1 MO=1 BI=1 BA=1 MA=1 AA=1 LV Global Longitudinal Strain: RV Global Longitudinal Strain: LV Function: Normal LV Ejection Fraction, (EF=52-72%) RV Function: Normal Septal Motion: Normal Pericardial Effusion: trivial posterior Atrial Septum: Normal DOPPLER/COLOR FOLOW DOPPLER RESULTS: Diastolic Function: normal Tricuspid Valve: mild TV regurgitation Pulmonic Valve: Mild AZ AV Regurgitation: No AR seen AV Stenosis: no AV Area: cm2 AV Pressure Gradient (mmHg): Mean: 0, Peak:0 MV Regurgitation: Mild MR MV Stenosis: no MS MV Area: cm2 MV Pressure Gradient (mmHg): Mean: 0 MV ERO: cm Regurg. Vol.: ml/beat Regurg. Frac.: % PA Pressure: mmHg DOPPLER/COLOR FOLOW DOPPLER COMMENTS: No AR seen, Mild MR, no , no MS, mild TV regurgitation, Mild AZ. Diastolic function: normal CONTRAST: 2.3 ml Optison Administered, (0.7 ml wasted). SUMMARY: Normal LV and RV size and systolic function. LVEF 65%. Normal LV wall thickness. Normal biatrial size. No significant valvular abnormalities. Normal diastolic function. Normal Inferior vena cava, est. RAP 8mmHg. Unable to estimate PASP due to inadequate TR jet. Normal aortic root size. Confirmed on 11/23/2019 - 17:16:13 by Hannah Chanel MD Miner Assistant: Arsen Smith MD By signing this report, the attending paste up copy camera operator certifies that he or she has personally supervised and interpreted the echocardiogram and has reviewed and or edited and agrees with the written comments contained within the report. Lizzette Grijalva MD CV ECHO PROCEDURES Final Result * Potassium, whole blood (11/23/2019 2:[address] RAILWAY LINE INSTALLER) [facility] Potassium, bld 4.6 3.3 - 4.9 mmol/L [facility] Blood specimen (specimen) 11/23/2019 2:[address] RAILWAY LINE INSTALLER 11/23/2019 3:[address] RAILWAY LINE INSTALLER Iza Gordon FUR TRIMMER LAB BLOOD ORDERABLES Final Result Performing Organization Address [facility]/ZIP Co de Phone Number [facility] [place] [address] * POCT glucose (11/23/2019 2:[address] RAILWAY LINE INSTALLER) [facility] Glucose, POC 156 70 - 199 mg/dL [facility] Blood specimen (specimen) 11/23/2019 2:[address] RAILWAY LINE INSTALLER 11/23/2019 2:[address] RAILWAY LINE INSTALLER Josué Del Valle MD PhD LAB POCT ORDERABLES - DE VICE Final Result Performing Organization Address [facility]/ZIP Co de Phone Number [facility] [place] [address] * (ABNORMAL) POCT glucose (11/23/2019 1:[address] RAILWAY LINE INSTALLER) [facility] Signature Glucose, POC 222(H) 70 - 199 mg/dL [facility] Blood specimen (specimen) 11/23/2019 1:[address] RAILWAY LINE INSTALLER 11/23/2019 1:[address] RAILWAY LINE INSTALLER Josué Del Valle MD PhD LAB POCT ORDERABLES - DE VICE Final Result Performing Organization Address [facility] Co de Phone Number [facility] [place] [address] * (ABNORMAL) POCT glucose (11/23/2019 12:[address] RAILWAY LINE INSTALLER) Glucose, POC 296(H) 70 - 199 mg/dL [facility] Blood specimen (specimen) 11/23/2019 12:[address] RAILWAY LINE INSTALLER 11/23/2019 12:[address] RAILWAY LINE INSTALLER Josué Del Valle MD PhD LAB POCT ORDERABLES - DE VICE Final Result Performing Organization Address [facility] Co de Phone Number [facility] [place] [address] * (ABNORMAL) POCT glucose (11/23/2019 11:[address] RAILWAY LINE INSTALLER) Glucose, POC 407(H) 70 - 199 mg/dL [facility] Blood specimen (specimen) 11/23/2019 11:[address] RAILWAY LINE INSTALLER 11/23/2019 11:[address] RAILWAY LINE INSTALLER Josué Del Valle MD PhD LAB POCT ORDERABLES - DE VICE Final Result Performing Organization Address City/[facility] [place] [address] * (ABNORMAL) POCT glucose (11/23/2019 10:[address] RAILWAY LINE INSTALLER) Glucose, POC 419(H) 70 - 199 mg/dL [facility] Blood specimen (specimen) 11/23/2019 10:[address] RAILWAY LINE INSTALLER 11/23/2019 10:[address] RAILWAY LINE INSTALLER us Josué Del Valle MD PhD LAB POCT ORDERABLES - DE VICE Final Result Performing Organization Address [facility] Co de Phone Number [facility] [place] [address] * (ABNORMAL) POCT glucose (11/23/2019 8:[address] RAILWAY LINE INSTALLER) Glucose, POC 449(H) 70 - 199 mg/dL [facility] Blood specimen (specimen) 11/23/2019 8:[address] RAILWAY LINE INSTALLER 11/23/2019 8:[address] RAILWAY LINE INSTALLER us Josué Del Valle MD PhD LAB POCT ORDERABLES - DE VICE Final Result Performing Organization Address [facility] Co fl Phone Number [facility] [place] [address] * (ABNORMAL) POCT glucose (11/23/2019 4:[address] RAILWAY LINE INSTALLER) Glucose, POC 372(H) 70 - 199 mg/dL [facility] Blood specimen (specimen) 11/23/2019 4:[address] RAILWAY LINE INSTALLER 11/23/2019 4:[address] RAILWAY LINE INSTALLER Josué Del Valle MD PhD LAB POCT ORDERABLES - DE VICE Final Result Performing Organization Address [facility] [place] [address] * Phosphorus (11/23/2019 3:[address] RAILWAY LINE INSTALLER) Phosphorus, pl 2.9 2.3 - 4.5 mg/dL [facility] Comment:Hemolyzed result may be falsely elevated Blood specimen (specimen) 11/23/2019 3:[address] RAILWAY LINE INSTALLER 11/23/2019 4:[address] RAILWAY LINE INSTALLER Josué Del Valle MD PhD LAB BLOOD ORDERABLES Fin al Result [facility] Department [place] [address] * Magnesium (11/23/2019 3:[address] RAILWAY LINE INSTALLER) [facility] Magnesium 1.8 1.4 - 2.5 mg/dL [facility] Blood specimen (specimen) 11/23/2019 3:[address] RAILWAY LINE INSTALLER 11/23/2019 4:[address] RAILWAY LINE INSTALLER Josué Del Valle MD PhD LAB BLOOD ORDERABLES Fin al Result Performing Organization Address [facility] de Phone Number [facility] Department [place] [address] * (ABNORMAL) Manual Differential (11/23/2019 3:[address] RAILWAY LINE INSTALLER) [facility] Differential Manual [facility] Cells Counted 113 [facility] Neutrophil abs 17.5(H) 1.7 - 6.5 K/cumm [facility] Imm gran abs 0.4(H) 0.0 - 0.1 K/cumm [facility] Lymphocyte abs 1.6 0.8 - 3.3 K/cumm [facility] Monocyte abs 1.1(H) 0.2 - 0.8 K/cumm [facility] Neutrophil pct 84.9 % [facility] Comment: Interpretive Data Percent cell count reference ranges are not reported, since discordance with absolute values may lead to misinterpretation of CBC data. Current Interpretive Data was last revised on 2018. Lymphocyte pct 8.0 % [facility] Comment: Interpretive Data Percent cell count reference ranges are not reported, since discordance with absolute values may lead to misinterpretation of CBC data. Current Interpretive Data was last revised on 2018. Monocyte pct 5.3 % [facility] Comment: Interpretive Data Percent cell count reference ranges are not reported, since discordance with absolute values may lead to misinterpretation of CBC data. Current Interpretive Data was last revised on 2018. Metamyelocyte pct 0.9(H) 0.0 - 0.0 % [facility] Myelocyte pct 0.9 % [facility] RBC morphology Normal [facility] Platelet estimate Adequate [facility] Blood specimen (specimen) 11/23/2019 3:[address] RAILWAY LINE INSTALLER 11/23/2019 3:[address] RAILWAY LINE INSTALLER Iza Gordon NP LAB BLOOD ORDERABLES Edited Result - Final [facility] Department [place] [address] * (ABNORMAL) CBC without differential (11/23/2019 3:[address] RAILWAY LINE INSTALLER) WBC 20.6(H) 3.8 - 9.9 K/cumm [facility] Hgb 12.1(L) 13.0 - 17.5 g/dL [facility] Hct 36.1(L) 38.9 - 50.3 % [facility] Plt 265 150 - 400 K/cumm [facility] MPV 11.4 9.1 - 12.3 fL [facility] RBC 3.62(L) 4.30 - 5.80 M/cumm [facility] MCV 99.7(H) 81.3 - 96.4 fL [facility] MCH 33.4(H) 27.1 - 33.3 pg [facility] MCHC 33.5 32.3 - 35.7 g/dL [facility] RDW CV 13.7 11.1 - 14.9 % [facility] RDW SD 50.7(H) 35.7 - 48.1 fL [facility] NRBC abs 0.61(H) 0.00 - 0.01 K/cumm [facility] Blood specimen (specimen) 11/23/2019 3:[address] RAILWAY LINE INSTALLER 11/23/2019 3:[address] RAILWAY LINE INSTALLER Iza Gordon NP LAB BLOOD ORDERABLES Final Result Performing Organization Address City/[facility] de Phone Number [facility] [place] [address] * (ABNORMAL) Protime-INR (11/23/2019 3:[address] RAILWAY LINE INSTALLER) PT 17.4(H) 8.6 - 13.0 sec [facility] INR 1.6(H) 0.8 - 1.2 [facility] Comment: Interpretive data Oral anticoagulant therapeutic ranges: Venous thromboembolism prophylaxis or treatment: 2.0-3.0 CARDIOLOGY Standard range: 2.0-3.0 High-intensity range: 2.5-3.5 Refer to indication-specific guidelines for appropriate target ranges for prosthetic heart valve replacement. Current interpretive data was last revised on 2019. Blood specimen (specimen) 11/23/2019 3:[address] RAILWAY LINE INSTALLER 11/23/2019 3:[address] RAILWAY LINE INSTALLER Iza Gordon NP LAB BLOOD ORDERABLES Final Result Performing Organization Address [facility] [place] [address] * aPTT (11/23/2019 3:[address] RAILWAY LINE INSTALLER) aPTT 29 25 - 37 sec [facility] Comment: Interpretive data Heparin therapeutic range: 60-90 seconds Range based on correlation with therapeutic heparin activity range of 0.3-0.7 units/ml. Current interpretive data was last revised on 2019. Blood specimen (specimen) 11/23/2019 3:[address] RAILWAY LINE INSTALLER 11/23/2019 3:[address] RAILWAY LINE INSTALLER Iza Gordon NP LAB BLOOD ORDERABLES Final Result Performing Organization Address [facility] de Phone Number [facility] [place] [address] * Lactate dehydrogenase (LD) (11/23/2019 3:[address] RAILWAY LINE INSTALLER) [facility] Lactate dehydrogenase (LDH) See Comment 100 - 250 Units/L [facility] Comment:Credited Hemolyzed Blood specimen (specimen) 11/23/2019 3:[address] RAILWAY LINE INSTALLER 11/23/2019 4:[address] RAILWAY LINE INSTALLER Narrative [facility] - 11/23/2019 5:[address] RAILWAY LINE INSTALLER Saturday and only. Morning draw. Iza Adriana Gordon NP LAB BLOOD ORDERABLES Final Result Performing Organization Address [facility] de Phone Number [facility] [place] [address] * Uric acid (11/23/2019 3:[address] RAILWAY LINE INSTALLER) [facility] Uric acid 4.6 3.0 - 8.0 mg/dL [facility] Blood specimen (specimen) 11/23/2019 3:[address] RAILWAY LINE INSTALLER 11/23/2019 4:[address] RAILWAY LINE INSTALLER Narrative [facility] - 11/23/2019 5:[address] RAILWAY LINE INSTALLER Saturday and only. Morning draw. . Iza Adriana Gordon LAB BLOOD ORDERABLES Final Result Performing Organization Address [facility] de Phone Number [facility] [place] [address] * (ABNORMAL) Comprehensive metabolic panel (11/23/2019 3:[address] RAILWAY LINE INSTALLER) [facility] Sodium 131(L) 135 - 145 mmol/L [facility] Potassium, pl See Comment 3.3 - 4.9 mmol/L [facility] Comment:Credited Hemolyzed Chloride 92(L) 97 - 110 mmol/L [facility] CO2 29 22 - 32 mmol/L [facility] Anion gap 10 2 - 15 mmol/L [facility] BUN 29(H) 8 - 25 mg/dL [facility] Creatinine 0.78(L) 0.80 - 1.30 mg/dL [facility] Glucose 379(H) 70 - 199 mg/dL [facility] Comment: Interpretive Data Fasting glucose >/= 126 [...] 2017. Calcium 8.7 8.5 - 10.3 mg/dL [facility] Bilirubin, total 0.2 0.1 - 1.2 mg/dL [facility] Protein, pl 6.5 6.5 - 8.5 g/dL [facility] Albumin 3.2(L) 3.5 - 5.0 g/dL [facility] Alk phos 100 40 - 130 Units/L [facility] Comment:Hemolyzed result may be falsely decreased ALT See Comment 7 - 55 Units/L [facility] Comment:Credited; Hemolyzed Specimen AST See Comment 10 - 50 Units/L [facility] Comment:Credited Hemolyzed Blood specimen (specimen) 11/23/2019 3:[address] RAILWAY LINE INSTALLER 11/23/2019 4:[address] RAILWAY LINE INSTALLER Narrative [facility] - 11/23/2019 5:[address] RAILWAY LINE INSTALLER Saturday and only. Morning draw. Iza Gordon NP LAB BLOOD ORDERABLES Final Result [facility] Department of Laboratories [place], [place] [id number] * Type and screen (11/23/2019 3:[address] RAILWAY LINE INSTALLER) ABO Rh A Positive [facility] [place], indirect Negative [facility] Blood specimen (specimen) 11/23/2019 3:[address] RAILWAY LINE INSTALLER 11/23/2019 3:[address] RAILWAY LINE INSTALLER Narrative [facility] - 11/23/2019 4:[address] RAILWAY LINE INSTALLER Has the patient had Daratumumab (Darzalex) in the past 6 months?->Unknown us Iza Gordon FUR TRIMMER LAB BLOOD BANK TEST ORDERABLES Final Result Performing Organization Address [facility] Co de Phone Number [facility] [place] [address] * (ABNORMAL) POCT glucose (11/23/2019 2:[address] RAILWAY LINE INSTALLER) Glucose, POC 404(H) 70 - 199 mg/dL [facility] Blood specimen (specimen) 11/23/2019 2:[address] RAILWAY LINE INSTALLER 11/23/2019 2:[address] RAILWAY LINE INSTALLER Josué Del Valle MD PhD LAB POCT ORDERABLES - DE VICE Final Result Performing Organization Address City/[facility] Co de Phone Number [facility] [place] [address] * (ABNORMAL) POCT glucose (11/23/2019 1:[address] RAILWAY LINE INSTALLER) Glucose, POC 443(H) 70 - 199 mg/dL [facility] Blood specimen (specimen) 11/23/2019 1:[address] RAILWAY LINE INSTALLER 11/23/2019 1:[address] RAILWAY LINE INSTALLER Josué Del Valle MD PhD LAB POCT ORDERABLES - DE VICE Final Result Performing Organization Address City/[facility] [place] [address] * (ABNORMAL) POCT glucose (11/22/2019 10:[address] RAILWAY LINE INSTALLER) Glucose, POC 418(H) 70 - 199 mg/dL [facility] Blood specimen (specimen) 11/22/2019 10:[address] RAILWAY LINE INSTALLER 11/22/2019 10:[address] RAILWAY LINE INSTALLER us Josué Del Valle MD PhD LAB POCT ORDERABLES - DE VICE Final Result Performing Organization Address [facility] Co de Phone Number [facility] [place] [address] * (ABNORMAL) POCT glucose (11/22/2019 5:[address] RAILWAY LINE INSTALLER) Glucose, POC 377(H) 70 - 199 mg/dL [facility] Blood specimen (specimen) 11/22/2019 5:[address] RAILWAY LINE INSTALLER 11/22/2019 5:[address] RAILWAY LINE INSTALLER us Josué Del Valle MD PhD LAB POCT ORDERABLES - DE VICE Final Result Performing Organization Address [facility] Co de Phone Number [facility] [place] [address] * (ABNORMAL) POCT glucose (11/22/2019 12:[address] RAILWAY LINE INSTALLER) Glucose, POC 409(H) 70 - 199 mg/dL [facility] Blood specimen (specimen) 11/22/2019 12:[address] RAILWAY LINE INSTALLER 11/22/2019 12:[address] RAILWAY LINE INSTALLER us Josué Del Valle MD PhD LAB POCT ORDERABLES - DE VICE Final Result Performing Organization Address [facility] [place] [address] * Critical Result Callback Chemistry (11/22/2019 9:[address] RAILWAY LINE INSTALLER) Date Notified [id number] [facility] Time Notified [address] [place] [address] TestName vancomycin,t [facility] Called/Read Back marleny rojas [facility] Credentials RN [facility] Called By [facility] Blood specimen (specimen) 11/22/2019 9:[address] RAILWAY LINE INSTALLER 11/22/2019 9:[address] RAILWAY LINE INSTALLER Anjel Muniz MD LAB BLOOD ORDERABLES Fin al Result Performing Organization Address [facility] Co de Phone Number [facility] [place] [address] * (ABNORMAL) Vancomycin, trough Draw trough 30 minutes prior to 4th dose. (11/22/2019 9:[address] RAILWAY LINE INSTALLER) Vancomycin trough 21.3(C) 10.0 - 20.9 mcg/mL [facility] Blood specimen (specimen) 11/22/2019 9:[address] [employer] LINE INSTALLER 11/22/2019 9:[address] [employer]WAY LINE INSTALLER Narrative [facility] - 11/22/2019 10:[address] [employer]WAY LINE INSTALLER Draw trough 30 minutes prior to 4th dose. Anjel Muniz MD LAB BLOOD ORDERABLES Fin al Result Performing Organization Address [facility] Co de Phone Number [facility] [place] [address] * (ABNORMAL) POCT glucose (11/22/2019 7:[address] RAILWAY LINE INSTALLER) Glucose, POC 270(H) 70 - 199 mg/dL [facility] Blood specimen (specimen) 11/22/2019 7:[address] [employer]AY LINE INSTALLER 11/22/2019 7:[address] [employer] LINE INSTALLER Josué Del Valle MD PhD LAB POCT ORDERABLES - DE VICE Final Result Performing Organization Address [facility] [place] [address] * (ABNORMAL) POCT glucose (11/22/2019 6:[address] RAILWAY LINE INSTALLER) Glucose, POC 432(H) 70 - 199 mg/dL [facility] Blood specimen (specimen) 11/22/2019 6:[address] [employer]WAY LINE INSTALLER 11/22/2019 6:[address] [employer]WAY LINE INSTALLER us Josué Del Valle MD PhD LAB POCT ORDERABLES - DE VICE Final Result [facility] Department [place] [address] * (ABNORMAL) Manual Differential (11/22/2019 5:[address] [employer]ILWAY LINE INSTALLER) Differential Manual [facility] Cells Counted 115 [facility] Neutrophil abs 11.9(H) 1.7 - 6.5 K/cumm [facility] Imm gran abs 0.2(H) 0.0 - 0.1 K/cumm [facility] Lymphocyte abs 1.2 0.8 - 3.3 K/cumm [facility] Monocyte abs 0.1(L) 0.2 - 0.8 K/cumm [facility] Basophil abs 0.1 0.0 - 0.1 K/cumm [facility] Neutrophil pct 87.7 % [facility] Comment: Interpretive Data Percent cell count reference ranges are not reported, since discordance with absolute values may lead to misinterpretation of CBC data. Current Interpretive Data was last revised on 2018. Lymphocyte pct 7.8 % [facility] Comment: Interpretive Data Percent cell count reference ranges are not reported, since discordance with absolute values may lead to misinterpretation of CBC data. Current Interpretive Data was last revised on 2018. Monocyte pct 0.9 % [facility] Comment: Interpretive Data Percent cell count reference ranges are not reported, since discordance with absolute values may lead to misinterpretation of CBC data. Current Interpretive Data was last revised on 2018. Basophil pct 0.9 % [facility] Comment: Interpretive Data Percent cell count reference ranges are not reported, since discordance with absolute values may lead to misinterpretation of CBC data. Current Interpretive Data was last revised on 2018. Myelocyte pct 0.9 % [facility] Promyelocyte pct 0.9(H) 0.0 - 0.0 % [facility] Variant lymph pct 0.9(H) 0.0 - 0.0 % [facility] RBC morphology Normal [facility] Platelet estimate Adequate [facility] Blood specimen (specimen) 11/22/2019 5:[address] [employer]WAY LINE INSTALLER 11/22/2019 5:[address] [employer]WAY LINE INSTALLER Iza Gordon FUR TRIMMER LAB BLOOD ORDERABLES Edited Result - Final Performing Organization Address City/[facility]/ZIP Co de Phone Number [facility] Department [place] [address] * (ABNORMAL) CBC without differential (11/22/2019 5:[address] RAILWAY LINE INSTALLER) WBC 13.6(H) 3.8 - 9.9 K/cumm [facility] Hgb 13.4 13.0 - 17.5 g/dL [facility] Hct 40.1 38.9 - 50.3 % [facility] Plt 286 150 - 400 K/cumm [facility] MPV 11.5 9.1 - 12.3 fL [facility] RBC 4.00(L) 4.30 - 5.80 M/cumm [facility] MCV 100.3(H) 81.3 - 96.4 fL [facility] MCH 33.5(H) 27.1 - 33.3 pg [facility] MCHC 33.4 32.3 - 35.7 g/dL [facility] RDW CV 13.5 11.1 - 14.9 % [facility] RDW SD 49.5(H) 35.7 - 48.1 fL [facility] NRBC abs 0.64(H) 0.00 - 0.01 K/cumm [facility] Blood specimen (specimen) 11/22/2019 5:[address] [employer]WAY LINE INSTALLER 11/22/2019 5:[address] [employer]WAY LINE INSTALLER Iza Gordon NP LAB BLOOD ORDERABLES Final Result Performing Organization Address City/[facility]/ZIP Co de Phone Number [facility] Department [place] [address] * (ABNORMAL) Basic metabolic panel (11/22/2019 5:[address] RAILWAY LINE INSTALLER) Sodium 131(L) 135 - 145 mmol/L [facility] Potassium, pl 5.5(H) 3.3 - 4.9 mmol/L [facility] Chloride 94(L) 97 - 110 mmol/L [facility] CO2 29 22 - 32 mmol/L [facility] Anion gap 8 2 - 15 mmol/L [facility] BUN 25 8 - 25 mg/dL [facility] Creatinine 0.83 0.80 - 1.30 mg/dL [facility] Glucose 417(H) 70 - 199 mg/dL [facility] Comment: Interpretive Data Fasting glucose >/= 126 [...] 2017. Calcium 9.2 8.5 - 10.3 mg/dL [facility] Blood specimen (specimen) 11/22/2019 5:[address] [employer]WAY LINE INSTALLER 11/22/2019 5:[address] [employer]WAY LINE INSTALLER Narrative [facility] - 11/22/2019 6:[address] [employer]WAY LINE INSTALLER Daily except Saturday and . Morning draw. Iza Gordon NP LAB BLOOD ORDERABLES Final Result [facility] Department [place] [address] * Phosphorus (11/22/2019 5:[address] RAILWAY LINE INSTALLER) Phosphorus, pl 3.7 2.3 - 4.5 mg/dL [facility] Blood specimen (specimen) 11/22/2019 5:[address] [employer]ILWAY LINE INSTALLER 11/22/2019 5:[address] RAILWAY LINE INSTALLER Iza Adriana Gordon FUR TRIMMER LAB BLOOD ORDERABLES Final Result Performing Organization Address [facility] Co de Phone Number [facility] [place] [address] * Magnesium (11/22/2019 5:[address] RAILWAY LINE INSTALLER) Magnesium 1.8 1.4 - 2.5 mg/dL [facility] Blood specimen (specimen) 11/22/2019 5:[address] RAILWAY LINE INSTALLER 11/22/2019 5:[address] RAILWAY LINE INSTALLER [facility] Adriana Gordon NP LAB BLOOD ORDERABLES Final Result Performing Organization Address [facility] de Phone Number [facility] [place] [address] * (ABNORMAL) POCT glucose (11/22/2019 5:[address] RAILWAY LINE INSTALLER) Glucose, POC 328(H) 70 - 199 mg/dL [facility] Blood specimen (specimen) 11/22/2019 5:[address] RAILWAY LINE INSTALLER 11/22/2019 5:[address] [employer]WAY LINE INSTALLER Josué Del Valle MD PhD LAB POCT ORDERABLES - DE VICE Final Result Performing Organization Address [facility] [place] [address] * (ABNORMAL) POCT glucose (11/22/2019 12:[address] RAILWAY LINE INSTALLER) Glucose, POC 344(H) 70 - 199 mg/dL [facility] Blood specimen (specimen) 11/22/2019 12:[address] RAILWAY LINE INSTALLER 11/22/2019 12:[address] RAILWAY LINE INSTALLER Josué Del Valle MD PhD LAB POCT ORDERABLES - DE VICE Final Result Performing Organization Address City/[facility] Co de Phone Number [facility] [place] [address] * (ABNORMAL) POCT glucose (11/21/2019 9:[address] RAILWAY LINE INSTALLER) Pathologist [facility] Glucose, POC 523(C) 70 - 199 mg/dL [facility] Glucose comment 1 RN Notified [facility] Glucose comment 2 Doctor Notified [facility] Blood specimen (specimen) 11/21/2019 9:[address] RA[employer]WAY LINE INSTALLER 11/21/2019 9:[address] [employer]WAY LINE INSTALLER Josué Del Valle MD PhD LAB POCT ORDERABLES - DE VICE Final Result Performing Organization Address [facility] de Phone Number [facility] [place] [address] * Histoplasma Antigen Urine (11/21/2019 5:[address] RAILWAY LINE INSTALLER) [facility] Histo Ag Ur result None Detected None Detected [facility] Histo Ag Ur interp Negative Negative [facility] Comment: Result Interpretation: Reference interval: None Detected Results reported as ng/mL in 0.4 - 19 ng/mL range Results above the limit of detection but below 0.4 ng/mL are reported as 'Positive, Below the Limit of Quantification' Results above 19 ng/mL are reported as 'Positive, Above the Limit of Quantification' Testing Performed by: [employer], [address] [place] [address] [place] [address]. This test was developed and its performance characteristics determined by [employer]. It has not been cleared or approved by the FDA; however, FDA clearance or approval is not currently required for clinical use. The results are not intended to be used as the sole means for clinical diagnosis or patient management decisions. Urine 11/21/2019 5:[address] RAILWAY LINE INSTALLER 11/21/2019 7:[address] RA[employer]WAY LINE INSTALLER us Lizzette Grijalva MD LAB MICROBIOLOGY - GENERA L ORDERABLES Final Result Performing Organization Address [facility] [place] [address] * (ABNORMAL) POCT glucose (11/21/2019 5:[address] RAILWAY LINE INSTALLER) Glucose, POC 461(C) 70 - 199 mg/dL [facility] Glucose comment 1 RN Notified [facility] Blood specimen (specimen) 11/21/2019 5:[address] RAILWAY LINE INSTALLER 11/21/2019 5:[address] RAILWAY LINE INSTALLER us Josué Del aVlle MD PhD LAB POCT ORDERABLES - DE VICE Final Result Performing Organization Address [facility] [place] [address] * (ABNORMAL) POCT glucose (11/21/2019 12:[address] RAILWAY LINE INSTALLER) Glucose, POC 481(C) 70 - 199 mg/dL [facility] Glucose comment 1 RN Notified [facility] Blood specimen (specimen) 11/21/2019 12:[address] RAILWAY LINE INSTALLER 11/21/2019 12:[address] RAILWAY LINE INSTALLER us Josué Del Valle MD PhD LAB POCT ORDERABLES - DE VICE Final Result Performing Organization Address City/[facility] Co de Phone Number [facility] [place] [address] * (ABNORMAL) POCT glucose (11/21/2019 8:[address] RAILWAY LINE INSTALLER) Glucose, POC 367(H) 70 - 199 mg/dL [facility] Blood specimen (specimen) 11/21/2019 8:[address] RAILWAY LINE INSTALLER 11/21/2019 8:[address] RAILWAY LINE INSTALLER us Josué Del Valle MD PhD LAB POCT ORDERABLES - DE VICE Final Result Performing Organization Address [facility] [place] [address] * (ABNORMAL) POCT glucose (11/21/2019 6:[address] RAILWAY LINE INSTALLER) Glucose, POC 386(H) 70 - 199 mg/dL [facility] Blood specimen (specimen) 11/21/2019 6:[address] RAILWAY LINE INSTALLER 11/21/2019 6:[address] RAILWAY LINE INSTALLER us Josué Del Valle MD PhD LAB POCT ORDERABLES - DE VICE Final Result Performing Organization Address [facility] [place] [address] * (ABNORMAL) POCT glucose (11/21/2019 5:[address] RAILWAY LINE INSTALLER) [facility] Glucose, POC 491(C) 70 - 199 mg/dL [facility] Glucose comment 1 Glu2: [facility] Blood specimen (specimen) 11/21/2019 5:[address] RAILWAY LINE INSTALLER 11/21/2019 5:[address] RAILWAY LINE INSTALLER us Josué Del Valle MD PhD LAB POCT ORDERABLES - DE VICE Final Result Performing Organization Address [facility] Phone Number [facility] [place] [address] * (ABNORMAL) Aerobic culture and gram stain Sputum Lung (11/21/2019 3:[address] RAILWAY LINE INSTALLER) [facility] Direct Specimen Exam Stain: Abundant polymorphonuclear leukocytes seen. No squamous epithelial cells seen. Abundant Mixed bacterial oscar seen on gram stain. [facility] Report Final Report: Greater than or equal to 100,000 colonies/ml of Streptococcus pneumoniae Moxifloxacin susceptibility results can be inferred from gatifloxacin susceptibility testing. Plus growth of clinically insignificant bacterial oscar. (.) [facility] Organism STREPTOCOCCUS PNEUMONIAE [facility] Organism PLUS GROWTH OF CLINICALLY INSIGNIFICANT OSCAR. [facility] Sputum (Lung) 11/21/2019 3:[address] RAILWAY LINE INSTALLER 11/21/2019 3:[address] RAILWAY LINE INSTALLER Narrative [facility] - 11/24/2019 1:[address] RAILWAY LINE INSTALLER Testing performed by [facility] ([phone]) Specimens submitted from normally sterile body sites [...] revised on 2017. Organism Antibiotic Method Susceptibility Streptococcus pneumoniae Gatifloxacin (REYNOLD) INTERPRETATION Susceptible Streptococcus pneumoniae Penicillin (REYNOLD) - meningitis (REYNOLD) INTERPRETATION Resistant Streptococcus pneumoniae Penicillin (REYNOLD) - non-meningitis (REYNOLD) INTERPRETATION Susceptible Streptococcus pneumoniae Penicillin (REYNOLD) - oral (REYNOLD) INTERPRETATION Intermediate Streptococcus pneumoniae Azithromycin (REYNOLD) INTERPRETATION Susceptible Streptococcus pneumoniae Tetracycline (REYNOLD) INTERPRETATION Susceptible Streptococcus pneumoniae Trimethoprim with Sulfamethoxazole (REYNOLD) INTERPRETATION 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 (REYNOLD) INTERPRETATION Susceptible Streptococcus pneumoniae Ceftriaxone (REYNOLD) - non-meningitis (REYNOLD) INTERPRETATION Susceptible Streptococcus pneumoniae Vancomycin (REYNOLD) INTERPRETATION Susceptible us Fer Tesfaye MD LAB MICROBIOLOGY - GENERAL ORDERABLES Final Result [facility] Department [place] [address] * Critical Result Callback Chemistry (11/21/2019 3:[address] RAILWAY LINE INSTALLER) Date Notified [id number] [facility] Time Notified [id number] ZULEMA DENT TestName glucose [facility]LE[facility] DENT Called/Read Back bela DENT Credentials RN [facility] Called By cs [facility]ULE[facility]ENT Blood specimen (specimen) 11/21/2019 3:[address] RAILWAY LINE INSTALLER 11/21/2019 3:[address] RAILWAY LINE INSTALLER Iza Gordon NP LAB BLOOD ORDERABLES Final Result [facility] Department [place] [address] * (ABNORMAL) Manual Differential (11/21/2019 3:[address] RAILWAY LINE INSTALLER) Differential Manual [facility] Cells Counted 114 [facility] Neutrophil abs 12.7(H) 1.7 - 6.5 K/cumm [facility] Imm gran abs 0.5(H) 0.0 - 0.1 K/cumm [facility] Lymphocyte abs 0.9 0.8 - 3.3 K/cumm [facility] Monocyte abs 0.1(L) 0.2 - 0.8 K/cumm [facility] Neutrophil pct 89.5 % [facility] Comment: Interpretive Data Percent cell count reference ranges are not reported, since discordance with absolute values may lead to misinterpretation of CBC data. Current Interpretive Data was last revised on 2018. Lymphocyte pct 6.1 % [facility] Comment: Interpretive Data Percent cell count reference ranges are not reported, since discordance with absolute values may lead to misinterpretation of CBC data. Current Interpretive Data was last revised on 2018. Monocyte pct 0.9 % [facility] Comment: Interpretive Data Percent cell count reference ranges are not reported, since discordance with absolute values may lead to misinterpretation of CBC data. Current Interpretive Data was last revised on 2018. Myelocyte pct 2.6 % [facility] Promyelocyte pct 0.9(H) 0.0 - 0.0 % [facility] RBC morphology Present(A) [facility] Polychromasia 3-7/HPF(A) [facility] Anisocytosis Slight(A) [facility] Poikilocytosis Moderate(A) [facility] Macrocytes 3-7/HPF(A) [facility] Schistocytes 1-2/HPF(A) [facility] Echinocytes 8-15/HPF(A) [facility] Platelet estimate Adequate [facility] Blood specimen (specimen) 11/21/2019 3:[address] RAILWAY LINE INSTALLER 11/21/2019 3:[address] RAILWAY LINE INSTALLER Iza Gordon NP LAB BLOOD ORDERABLES Edited Result - Final [facility] [place] [address] * (ABNORMAL) CBC without differential (11/21/2019 3:[address] RAILWAY LINE INSTALLER) Pathologist [facility] WBC 14.1(H) 3.8 - 9.9 K/cumm [facility] Hgb 14.0 13.0 - 17.5 g/dL [facility] Hct 42.6 38.9 - 50.3 % [facility] Plt 296 150 - 400 K/cumm [facility] MPV 11.7 9.1 - 12.3 fL [facility] RBC 4.22(L) 4.30 - 5.80 M/cumm [facility] MCV 100.9(H) 81.3 - 96.4 fL [facility] MCH 33.2 27.1 - 33.3 pg [facility] MCHC 32.9 32.3 - 35.7 g/dL [facility] RDW CV 13.6 11.1 - 14.9 % [facility] RDW SD 50.3(H) 35.7 - 48.1 fL [facility] NRBC abs 0.78(H) 0.00 - 0.01 K/cumm [facility] Blood specimen (specimen) 11/21/2019 3:[address] RAILWAY LINE INSTALLER 11/21/2019 3:[address] RAILWAY LINE INSTALLER Iza Gordon NP LAB BLOOD ORDERABLES Final Result [facility] Department [place] [address] * (ABNORMAL) Basic metabolic panel (11/21/2019 3:[address] RAILWAY LINE INSTALLER) Sodium 132(L) 135 - 145 mmol/L [facility] Potassium, pl 5.3(H) 3.3 - 4.9 mmol/L [facility] Chloride 92(L) 97 - 110 mmol/L [facility] CO2 26 22 - 32 mmol/L [facility] Anion gap 14 2 - 15 mmol/L [facility] BUN 22 8 - 25 mg/dL [facility] Creatinine 0.79(L) 0.80 - 1.30 mg/dL [facility] Glucose 529(C) 70 - 199 mg/dL [facility] Comment: Interpretive Data Fasting glucose >/= 126 [...] 2017. Calcium 9.2 8.5 - 10.3 mg/dL [facility] Blood specimen (specimen) 11/21/2019 3:[address] RA[employer]WAY LINE INSTALLER 11/21/2019 3:[address] RAILWAY LINE INSTALLER Narrative [facility] - 11/21/2019 4:[address] RA[employer]WAY LINE INSTALLER Daily except Saturday and . Morning draw. Iza Gordon NP LAB BLOOD ORDERABLES Final Result [facility] Department [place] [address] * (ABNORMAL) Phosphorus (11/21/2019 3:[address] RAILWAY LINE INSTALLER) Phosphorus, pl 4.6(H) 2.3 - 4.5 mg/dL [facility] Blood specimen (specimen) 11/21/2019 3:[address] RAILWAY LINE INSTALLER 11/21/2019 3:[address] RAILWAY LINE INSTALLER Iza Adriana Cincoski FUR TRIMMER LAB BLOOD ORDERABLES Final Result Performing Organization Address City/[facility] Co de Phone Number [facility] Department [place] [address] * Magnesium (11/21/2019 3:[address] RAILWAY LINE INSTALLER) Pathologist [facility] Magnesium 1.8 1.4 - 2.5 mg/dL [facility] Blood specimen (specimen) 11/21/2019 3:[address] RAILWAY LINE INSTALLER 11/21/2019 3:[address] RAILWAY LINE INSTALLER us Iza Gordon FUR TRIMMER LAB BLOOD ORDERABLES Final Result Performing Organization Address [facility] Co de Phone Number [facility] Department [place] [address] * (ABNORMAL) POCT glucose (11/20/2019 8:[address] RAILWAY LINE INSTALLER) [facility] Glucose, POC 247(H) 70 - 199 mg/dL [facility] Blood specimen (specimen) 11/20/2019 8:[address] RAILWAY LINE INSTALLER 11/20/2019 8:[address] RAILWAY LINE INSTALLER us Josué Del Valle MD PhD LAB POCT ORDERABLES - DE VICE Final Result Performing Organization Address [facility] Co de Phone Number [facility] Department [place] [address] * Filamentous fungus culture, blood Blood (11/20/2019 6:[address] RAILWAY LINE INSTALLER) [facility] Report Final Report: No growth of fungus [facility] Blood specimen (specimen) 11/20/2019 6:[address] RAILWAY LINE INSTALLER 11/20/2019 6:[address] RAILWAY LINE INSTALLER Narrative [facility] - 12/18/2019 9:[address] [employer]WAY LINE INSTALLER Testing performed by [facility] ([phone]). us Fer Tesfaye MD LAB MICROBIOLOGY - GENERAL ORDERABLES Final Result Performing Organization Address City/[facility]/[place] [address] * Aspergillus galactomannan antigen Blood (11/20/2019 6:[address] RAILWAY LINE INSTALLER) Report Final Report: Negative for Aspergillus Galactomannan Antigen Index: <0.500 [facility] Organism NEGATIVE FOR ASPERGILLUS GALACTOMANNAN ANTIGEN [facility] Blood specimen (specimen) 11/20/2019 6:[address] RAILWAY LINE INSTALLER 11/20/2019 6:[address] RAILWAY LINE INSTALLER Narrative [facility] - 11/24/2019 4:[address] RAILWAY LINE INSTALLER Interpretive Data Testing performed by: [facility], [address] [place] [address]. This is a qualitative test and the resulted index value is not indicative of disease severity. Serial testing is recommended for patients at high risk for invasive aspergillosis. This assay was performed using the FDA-cleared [employer] Aspergillus Galactomannan EIA. Current interpretive data was last revised on 18. us Fer Tesfaye MD LAB MICROBIOLOGY - GENERAL ORDERABLES Final Result Performing Organization Address [facility] [place] [place] [address] * (ABNORMAL) POCT glucose (11/20/2019 5:[address] RAILWAY LINE INSTALLER) Glucose, POC 335(H) 70 - 199 mg/dL [facility] Blood specimen (specimen) 11/20/2019 5:[address] RAILWAY LINE INSTALLER 11/20/2019 5:[address] RAILWAY LINE INSTALLER us Josué Del Valle MD PhD LAB POCT ORDERABLES - DE VICE Final Result Performing Organization Address [facility] [place] [address] * CT Chest W Contrast (11/20/2019 5:[address] RAILWAY LINE INSTALLER) Anatomical Region Laterality Modality Body N/A Computed Tomogra phy 11/20/2019 5:[address] RAILWAY LINE INSTALLER Impressions 11/20/2019 5:[address] RAILWAY LINE INSTALLER 1. ??Scattered tree-in-bud and nodular opacities throughout both lungs suggestive of an acute infectious process. ??Thickened and debris-filled bronchi which are focally worse in the left lower lobe may indicate superimposed aspiration pneumonitis. ??Recommend follow-up noncontrast chest CT after the onset of appropriate medical therapy to document resolution. 2. Moderate to severe centrilobular emphysema. Electronically signed by: Bri Collins D.O. Narrative 11/20/2019 5:[address] RAILWAY LINE INSTALLER EXAMINATION: ??Computed tomography of the chest with intravenous contrast HISTORY: Shortness of breath; hx allo SCT 2009 with worsening SOB, cough, hx COPD. Concern for GVHD vs infection. TECHNIQUE: ??Transaxial computed tomographic images of the chest were obtained with intravenous contrast according to the standard protocol after the uneventful administration of 100 mL Opti-Ray 350 intravenous contrast. COMPARISON: Chest CT 08/22/2019. FINDINGS: ?? Right apical subpleural fibrosis, unchanged. ??Moderate to severe, upper lobe dominant centrilobular emphysema. ??New patchy tree-in-bud and nodular opacities scattered throughout both lungs. ??No confluent consolidation. ??Mild diffuse bronchial wall thickening. ??Secretions in the central tracheobronchial tree. ??Mucoid impaction within the basilar segmental bronchi of the left lower lobe. Normal pleural spaces. No axillary, subpectoral or supraclavicular lymphadenopathy. Visualized thyroid is homogeneous in attenuation. ??No mediastinal or hilar adenopathy. ??Heart is normal size. ??Trace pericardial fluid could be physiologic. ??Mild to moderate coronary artery atherosclerosis. ??Thoracic aorta and its branch vessels are normal in course and caliber. ??Minimal aortic atherosclerosis. ??Esophagus is decompressed. Hepatic steatosis. ??Tiny calcification in the posterior gallbladder fundus is unchanged. ??Splenic atrophy. ??Atrophy of the splenic tail. 4.5 cm lobulated lesion in the region of the pancreatic tail is most consistent with sequelae of prior pancreatitis. No acute fracture. ??No destructive lytic or blastic lesion. ??Mild multilevel degenerative spondylosis. ??Normal soft tissues. Procedure Note Bri Collins., DO - 11/20/2019 EXAMINATION: Computed tomography of the chest with intravenous contrast HISTORY: Shortness of breath; hx allo SCT 2009 with worsening SOB, cough, hx COPD. Concern for GVHD vs infection. TECHNIQUE: Transaxial computed tomographic images of the chest were obtained with intravenous contrast according to the standard protocol after the uneventful administration of 100 mL Opti-Ray 350 intravenous contrast. COMPARISON: Chest CT 08/22/2019. FINDINGS: Right apical subpleural fibrosis, unchanged. Moderate to severe, upper lobe dominant centrilobular emphysema. New patchy tree-in-bud and nodular opacities scattered throughout both lungs. No confluent consolidation. Mild diffuse bronchial wall thickening. Secretions in the central tracheobronchial tree. Mucoid impaction within the basilar segmental bronchi of the left lower lobe. Normal pleural spaces. No axillary, subpectoral or supraclavicular lymphadenopathy. Visualized thyroid is homogeneous in attenuation. No mediastinal or hilar adenopathy. Heart is normal size. Trace pericardial fluid could be physiologic. Mild to moderate coronary artery atherosclerosis. Thoracic aorta and its branch vessels are normal in course and caliber. Minimal aortic atherosclerosis. Esophagus is decompressed. Hepatic steatosis. Tiny calcification in the posterior gallbladder fundus is unchanged. Splenic atrophy. Atrophy of the splenic tail. 4.5 cm lobulated lesion in the region of the pancreatic tail is most consistent with sequelae of prior pancreatitis. No acute fracture. No destructive lytic or blastic lesion. Mild multilevel degenerative spondylosis. Normal soft tissues. IMPRESSION: 1. Scattered tree-in-bud and nodular opacities throughout both lungs suggestive of an acute infectious process. Thickened and debris-filled bronchi which are focally worse in the left lower lobe may indicate superimposed aspiration pneumonitis. Recommend follow-up noncontrast chest CT after the onset of appropriate medical therapy to document resolution. 2. Moderate to severe centrilobular emphysema. Electronically signed by: Bri Collins D.O. Iza Gordon NP IMG CT PROCEDURES Fi nal Result * (ABNORMAL) POCT glucose (11/20/2019 3:[address] RAILWAY LINE INSTALLER) Glucose, POC 279(H) 70 - 199 mg/dL [facility] Blood specimen (specimen) 11/20/2019 3:[address] [employer]WAY LINE INSTALLER 11/20/2019 3:[address] [employer]WAY LINE INSTALLER us Josué Del Valle MD PhD LAB POCT ORDERABLES - DE VICE Final Result Performing Organization Address [facility] Co fl Phone Number [facility] Department [place] [address] * (ABNORMAL) POCT glucose (11/20/2019 1:[address] RAILWAY LINE INSTALLER) Glucose, POC 438(H) 70 - 199 mg/dL [facility] Blood specimen (specimen) 11/20/2019 1:[address] [employer]WAY LINE INSTALLER 11/20/2019 1:[address] [employer]WAY LINE INSTALLER us Josué Del Valle MD PhD LAB POCT ORDERABLES - DE VICE Final Result Performing Organization Address [facility] Phone Number [facility] Department [place] [address] * X-ray chest 1 view (Portable) (11/20/2019 1:[address] RAILWAY LINE INSTALLER) Anatomical Region Laterality Modality Body, Chest N/A Computed Radiogr aphy 11/20/2019 2:[address] [employer]WAY LINE INSTALLER Impressions 11/20/2019 3:[address] [employer]WAY LINE INSTALLER Comparison to 08/22/2019. Redemonstrated are bilateral emphysematous changes with mild bibasilar atelectasis. ??The lungs are otherwise ??clear without focal consolidation or pulmonary edema. ??No definite pleural effusion or pneumothorax. Heart size and mediastinal contour are unchanged. Dictated by: Elsi Sweet M.D. The radiology attending physician has personally reviewed this study, and had reviewed and/or edited this written report and agrees with it. Electronically signed by: Candice Lara M.D. Narrative 11/20/2019 3:[address] [employer]WAY LINE INSTALLER EXAMINATION: 1 view chest radiograph Procedure Note Candice Lara MD - 11/20/2019 EXAMINATION: 1 view chest radiograph IMPRESSION: Comparison to 08/22/2019. Redemonstrated are bilateral emphysematous changes with mild bibasilar atelectasis. The lungs are otherwise clear without focal consolidation or pulmonary edema. No definite pleural effusion or pneumothorax. Heart size and mediastinal contour are unchanged. Dictated by: Elsi Sweet M.D. The radiology attending physician has personally reviewed this study, and had reviewed and/or edited this written report and agrees with it. Electronically signed by: Candice Lara M.D. Iza Gordon FUR TRIMMER IMG XR PROCEDURES Fi nal Result * Fibrinogen (11/20/2019 12:[address] RAILWAY LINE INSTALLER) Pathologist [facility] Fibrinogen 322 170 - 400 mg/dL [facility] Blood specimen (specimen) 11/20/2019 12:[address] RAILWAY LINE INSTALLER 11/20/2019 12:[address] [employer]WAY LINE INSTALLER [facility] LAB BLOOD ORDERABLES Final Result Performing Organization Address City/[facility]/ZIP Co de Phone Number [facility] [place] [address] * Type and screen (11/20/2019 12:[address] RAILWAY LINE INSTALLER) Pathologist [facility] Ursula, indirect Negative [facility] ABO Rh A Positive [facility] Blood specimen (specimen) 11/20/2019 12:[address] RAILWAY LINE INSTALLER 11/20/2019 12:[address] RAILWAY LINE INSTALLER Narrative [facility] - 11/20/2019 1:[address] RAILWAY LINE INSTALLER Has the patient had Daratumumab (Darzalex) in the past 6 months?->Unknown [facility] TEST ORDERABLES Final Result [facility] [place] [address] * aPTT (11/20/2019 12:[address] RAILWAY LINE INSTALLER) [facility] aPTT 25 25 - 37 sec [facility] Comment: Interpretive data Heparin therapeutic range: 60-90 seconds Range based on correlation with therapeutic heparin activity range of 0.3-0.7 units/ml. Current interpretive data was last revised on 2019. Blood specimen (specimen) 11/20/2019 12:[address] RAILWAY LINE INSTALLER 11/20/2019 12:[address] RAILWAY LINE INSTALLER [facility] Adriana Gordon NP LAB BLOOD ORDERABLES Final Result Performing Organization Address [facility] Co de Phone Number [facility] [place] [address] * Protime-INR (11/20/2019 12:[address] RAILWAY LINE INSTALLER) [facility] PT 10.3 8.6 - 13.0 sec [facility] INR 1.0 0.8 - 1.2 [facility] Comment: Interpretive data Oral anticoagulant therapeutic ranges: Venous thromboembolism prophylaxis or treatment: 2.0-3.0 CARDIOLOGY Standard range: 2.0-3.0 High-intensity range: 2.5-3.5 Refer to indication-specific guidelines for appropriate target ranges for prosthetic heart valve replacement. Current interpretive data was last revised on 2019. Blood specimen (specimen) 11/20/2019 12:[address] RAILWAY LINE INSTALLER 11/20/2019 12:[address] RAILWAY LINE INSTALLER Iza Adriana Gordon NP LAB BLOOD ORDERABLES Final Result Performing Organization Address City/[facility]/ZIP Co de Phone Number [facility] [employer] [place] [address] * Respiratory pathogen PCR Nasopharyngeal (11/20/2019 12:[address] RAILWAY LINE INSTALLER) [facility] Adenovirus DNA Not Detected Not Detected [facility] Coronavirus 229E RNA Not Detected Not Detected [facility] Coronavirus HKU1 RNA Not Detected Not Detected [facility] Coronavirus NL63 RNA Not Detected Not Detected [facility] Coronavirus OC43 RNA Not Detected Not Detected [facility] Metapneumovirus RNA Not Detected Not Detected [facility] Rhinovirus/Enterov irus RNA Not Detected Not Detected [facility] Influenza A RNA Not Detected Not Detected [facility] Influenza B RNA Not Detected Not Detected [facility] Parainfluenza 1 RNA Not Detected Not Detected [facility] Parainfluenza 2 RNA Not Detected Not Detected [facility] Parainfluenza 3 RNA Not Detected Not Detected [facility] Parainfluenza 4 RNA Not Detected Not Detected [facility] RSV RNA Not Detected Not Detected [facility] B. pertussis DNA Not Detected Not Detected [facility] C. pneumoniae DNA Not Detected Not Detected [facility] M. pneumoniae DNA Not Detected Not Detected [facility] B. parapertussis DNA Not Detected Not Detected [facility] Comment: The [employer] FilmArray Respiratory Panel (RP2) assay is a multiplexed nucleic acid test capable of simultaneous qualitative detection and identification of multiple respiratory viral and bacterial nucleic acids. The following bacteria, viruses and virus subtypes can be identified using the FilmArray RP2 assay: Bordetella pertussis, Bordetella parapertussis, Chlamydophila pneumoniae, Mycoplasma pneumoniae, Adenovirus, Coronavirus HKU1, Coronavirus NL63, Coronavirus 229E, Coronavirus OC43, Influenza A, Influenza A subtype H1, Influenza A subtype H3, Influenza A subtype 2009 H1, Influenza B, Metapneumovirus, Parainfluenza 1, Parainfluenza 2, Parainfluenza 3, Parainfluenza 4, RSV, Rhinovirus/Enterovirus. Due to the genetic similarity between human Rhinovirus and Enterovirus, the FilmArray RP2 assay cannot reliably differentiate them. Coronavirus OC43 [...] test. ??Positive results do not rule out infection/co- infection with other organisms. ??The agent(s) detected by the FilmArray RP2 may not be the definite cause of disease. ??Additional testing (lab, imaging, etc.) may be necessary when evaluating a patient with possible respiratory tract infection. The FilmArray RP2 assay is FDA cleared for FUR [employer]MER swabs. ??Additional sample types have been validated according to CLIA regulations. The performance characteristics of this assay have been determined by [facility] Molecular Infectious Disease Laboratory. Current interpretive data was last revised on 2018. Nasopharyngeal 11/20/2019 12 :[address] RAILWAY LINE INSTALLER 11/20/2019 12:[address] RAILWAY LINE INSTALLER Iza Gordon FUR TRIMMER LAB MICROBIOLOGY - G ENERAL ORDERABLES Final Result [facility] Department [place] [address] * Blood culture Blood Antecubital, right (11/20/2019 12:[address] RAILWAY LINE INSTALLER) Report Final Report: No growth [facility] Blood specimen (specimen) (Antecubital, right) 11/20/2019 12:[address] RAILWAY LINE INSTALLER 11/20/2019 12:[address] RAILWAY LINE INSTALLER Narrative [facility] - 11/25/2019 4:[address] RAILWAY LINE INSTALLER From a different site than #1. 1. Blood cultures are incubated for 5 days on a continuously monitored blood culture system. The first report of a negative culture is issued within 24 hours of receipt of the specimen in the laboratory. 2. Positive culture results are reported as soon as they are detected. 3. The most important factor for detection of microbes [...] recommended for each blood culture set. 4. For blood cultures with Gram-positive cocci, a rapid [...] characteristics have been verified by the [facility] Microbiology Laboratory. 5. For questions about this culture, contact the Microbiology Laboratory at [phone]. Interpretive data was last revised on 2018. Iza Gordon NP LAB MICROBIOLOGY - G ENERAL ORDERABLES Final Result [facility] Department [place] [address] * Blood culture Blood Antecubital, left (11/20/2019 12:[address] RAILWAY LINE INSTALLER) Report Final Report: No growth [facility] Blood specimen (specimen) (Antecubital, left) 11/20/2019 12:[address] RAILWAY LINE INSTALLER 11/20/2019 12:[address] RAILWAY LINE INSTALLER Narrative [facility] - 11/25/2019 4:[address] RAILWAY LINE INSTALLER 1. Blood cultures are incubated for 5 days on a continuously monitored blood culture system. The first report of a negative culture is issued within 24 hours of receipt of the specimen in the laboratory. 2. Positive culture results are reported as soon as they are detected. 3. The most important factor for detection of microbes [...] recommended for each blood culture set. 4. For blood cultures with Gram-positive cocci, a rapid [...] characteristics have been verified by the [facility] Microbiology Laboratory. 5. For questions about this culture, contact the Microbiology Laboratory at [phone]. Interpretive data was last revised on 2018. Iza Gordon NP LAB MICROBIOLOGY - G ENERAL ORDERABLES Final Result [facility] Department [place] [address] * ECG 12 lead (11/20/2019 12:[address] RAILWAY LINE INSTALLER) Pathologist [facility] Ventricular Rate EKG/Min 64 BPM [facility] Atrial Rate [address] [facility] [place]-Interval (MSEC) [address] [facility] QRS-Interval (MSEC) [address] [facility] QT-Interval (MSEC) [address] [facility] QTc [address] [facility] P [place] [address] [facility] R [place] [address] [facility] T [place] [address] [facility] Diagnosis Normal sinus rhythm Left atrial enlargement Borderline ECG When compared with ECG of 22-NOV-2018 18:30, Non-specific change in ST segment in Inferior leads T wave inversion no longer evident in Inferior leads Confirmed by SOHAM WINTERS M.D ([id number]) on 11/21/2019 8:54:[address] [facility] 11/20/2019 12:[address] RAILWAY LINE INSTALLER 11/21/2019 8:[address] RAILWAY LINE INSTALLER Iza Gordon NP ECG ORDERABLES Pilar l Result 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) Vitamin D deficiency Type 2 diabetes mellitus with hyperosmolarity without coma, with long-term current use of insulin (HCC) Dewmo-duktxh-ldfh disease (HCC) Type 2 diabetes mellitus with hyperglycemia, with long-term current use of insulin (HCC) Ryxlx-crdgqy-wovt disease (HCC) Osteopenia Disorder of bone and cartilage, unspecified DVT (deep venous thrombosis) ([facility]) (HCC) Acute venous embolism and thrombosis of unspecified deep vessels of lower extremity Type 2 diabetes mellitus ([facility]) Shortness of breath COPD, severe (HCC) CHF (congestive heart failure) ([facility]) (HCC) Congestive heart failure, unspecified Peripheral neuropathy Unspecified hereditary and idiopathic peripheral neuropathy Tobacco abuse Tobacco use disorder Pure hypercholesterolemia Vitamin D deficiency Pneumonia Pneumonia, organism unspecified documented in this encounter Administered Medications Inactive Administered Medications - up to 3 most recent administrations Medication Order MAR Action Action Date Dose Rate Site acetaminophen (TYLENOL) tablet 650 mg 650 mg, oral, Every 4 hours PRN, blood product administration, Starting on Sat11/20/19 at 1216, Indications: Prophylaxis Transfusion ReactionIndications:Prophylaxis Transfusion Reaction acetaminophen (TYLENOL) tablet 650 mg 650 mg, oral, Every 6 hours PRN, fever, Starting on Sat11/20/19 at 1216, Indications: FeverIndications:Fever acyclovir (ZOVIRAX) tablet 400 mg 400 mg, oral, Every 8 hours, First dose on Sat11/20/19 at 1500, Indications: Prophylaxis, MedicalIndications:Prophylaxis, Medical Given 11/28/2019 8:[address] RAILWAY LINE INSTALLER 400 mg Given 11/27/2019 11:[address] RAILWAY LINE INSTALLER 400 mg Given 11/27/2019 5:[address] RAILWAY LINE INSTALLER 400 mg albuterol 2.5 mg /3 mL (0.083 %) nebulizer solution 2.5 mg 2.5 mg, nebulization, Once as needed, other, For administration with Procedure: Spirometry with Bronchodilator, Starting on Sat11/23/19 at 1024, For 1 dose, For administration with Procedure: Spirometry with Bronchodilator. Albuterol may not be given if the FVC and FEV1 percent predicted are equal to or greater than 80%. albuterol 2.5 mg/0.5 mL nebulizer solution 2.5 mg 2.5 mg, nebulization, Every 4 hours PRN (staff respiratory therapist), wheezing, Starting on Sat11/22/19 at 1534 Given 11/28/2019 10:[address] RAILWAY LINE INSTALLER 2.5 mg Given 11/27/2019 11:[address] RAILWAY LINE INSTALLER 2.5 mg Given 11/26/2019 9:[address] RAILWAY LINE INSTALLER 2.5 mg aluminum & magnesium itlfjnwzb-ggcbrzkrnig-hthrjalt dramine-lidocaine (MAGIC MOUTHWASH) suspension 1-1-1 15 mL, swish & swallow, 4 times daily PRN, other, mucositis, Starting on Sat11/20/19 at 1216, Indications: Chemotherapy-Induced MucositisIndications:Chemother apy-Induced Mucositis amoxicillin-clavulanate (AUGMENTIN) 875-125 mg per tablet 875 mg of amoxicillin 875 mg of amoxicillin, oral, 2 times daily, First dose on Sat11/27/19 at 1300, Indications: Pneumonia, AspirationIndications:Pneumoni a, Aspiration Given 11/28/2019 8:[address] RAILWAY LINE INSTALLER 875 mg of amoxicillin Given 11/27/2019 8:[address] RAILWAY LINE INSTALLER 875 mg of amoxicillin Given 11/27/2019 1:[address] RAILWAY LINE INSTALLER 875 mg of amoxicillin atorvastatin (LIPITOR) tablet 40 mg 40 mg, oral, Daily, First dose on Sat11/20/19 at 1500 Given 11/28/2019 8:[address] RAILWAY LINE INSTALLER 40 mg Given 11/27/2019 8:[address] RAILWAY LINE INSTALLER 40 mg Given 11/26/2019 8:[address] RAILWAY LINE INSTALLER 40 mg azithromycin (ZITHROMAX) tablet 250 mg 250 mg, oral, 3 times weekly (Once per day on Sat), First dose (after last modification) on Sat11/20/19 at 1545, Indications: Prophylaxis, MedicalIndications:Prophylaxis, Medical Given 11/27/2019 8:[address] RAILWAY LINE INSTALLER 250 mg Given 11/25/2019 8:[address] RAILWAY LINE INSTALLER 250 mg Given 11/23/2019 8:[address] RAILWAY LINE INSTALLER 250 mg bacitracin-polymyxin B (POLYSPORIN) 500-10,000 unit/gram ointment tube 1 application 1 application (deactivated), topical, Every 4 hours PRN, wound care, Starting on Sat11/20/19 at 1216, Apply to affected area: other, Indications: Minor Bacterial Skin InfectionsIndications:Minor Bacterial Skin Infections camphor-menthol (SARNA) 0.5-0.5 % lotion topical, Every 2 hours PRN, itching, Starting on Sat11/20/19 at 1216, Apply to affected area: other, Indications: Pruritus of SkinIndications:Pruritus of Skin cefepime (MAXIPIME) 2,000 mg/20 mL in sterile water (premix) 2,000 mg 2,000 mg, intravenous, at 40 mL/hr, Administer over 30 Minutes, Every 12 hours scheduled, First dose on Sat11/20/19 at 1845, Indications: SepsisIndications:Sepsis New Bag 11/27/2019 5:[address] RAILWAY LINE INSTALLER 2,000 mg 40 mL/ hr New Bag 11/26/2019 5:[address] RAILWAY LINE INSTALLER 2,000 mg 40 mL/hr New Bag 11/26/2019 5:[address] RAILWAY LINE INSTALLER 2,000 mg 40 mL/hr cholecalciferol (VITAMIN D-3) capsule 2,000 Units 2,000 Units, oral, Daily, First dose on Sat11/23/19 at 1430Indications:Vitamin D deficiency Given 11/28/2019 8:[address] RAILWAY LINE INSTALLER 2,000 Units Given 11/27/2019 8:[address] RAILWAY LINE INSTALLER 2,000 Units Given 11/26/2019 8:[address] RAILWAY LINE INSTALLER 2,000 Units dextrose (D10W) 10% bolus 250 mL 250 mL, intravenous, at 1,000 mL/hr, Administer over 15 Minutes, Every 15 min PRN, blood glucose less than 70 mg/dL and UNABLE to swallow/take PO glucose/juice., Starting on 11/21/19 at 0913, After treatment for hypoglycemia, recheck BG followed by treatment every 15 minutes until the BG is greater than 100 mg/dL. Then check BG 1 hour post treatment. If BG is less than 100 mg/dL, repeat Q15 minute BG checks and treatment. Call MD for each episode of hypoglycemia., Indications: hypoglycemic disorderIndications:hypoglycemic disorder dextrose (D10W) 10% bolus 250 mL 250 mL, intravenous, at 1,000 mL/hr, Administer over 15 Minutes, Every 15 min PRN, blood glucose less than 70 mg/dL and UNABLE to swallow/take PO glucose/juice., Starting on Sat11/22/19 at 0838, After treatment for hypoglycemia, recheck BG followed [...] glucose less than 70 mg/dL, Starting on 11/21/19 at 0913, If patient is alert and able to [...] Call MD for each episode of hypoglycemia. [employer] STATES GLUTOSE-15 CONTAINS GLUCOSE 40% W/W (50% W/V), Indications: hypoglycemic disorderIndications:hypoglycemic disorder dextrose (GLUTOSE) 40 % gel 15 g 15 g, oral, Every 15 min PRN, low blood sugar, blood glucose less than 70 mg/dL, Starting on 11/22/19 at 0838, If patient is alert and able to [...] Call MD for each episode of hypoglycemia. [employer] STATES GLUTOSE-15 CONTAINS GLUCOSE 40% W/W (50% W/V), Indications: hypoglycemic disorderIndications:hypoglycemic disorder diphenhydrAMINE (BENADRYL) tab/cap 25 mg 25 mg, oral, Nightly PRN, sleep, Starting on 11/22/19 at 0041 Given 11/22/2019 1:[address] RAILWAY LINE INSTALLER 25 mg ergocalciferol (VITAMIN D) capsule 50,000 Units 50,000 Units, oral, Weekly, First dose on Sat11/20/19 at 1500, For 194 days Given 11/27/2019 8:[address] RAILWAY LINE INSTALLER 50,000 U nits fluticasone propion-salmeterol (ADVAIR DISKUS) 100-50 mcg/dose diskus inhaler 1 puff 1 puff, inhalation, 2 times daily (staff respiratory therapist), First dose on Sat11/20/19 at 2000, Rinse mouth with water after use. Do not swallow. Given 11/21/2019 7:[address] RAILWAY LINE INSTALLER 1 puff Given 11/20/2019 7:[address] RAILWAY LINE INSTALLER 1 puff fluticasone propion-salmeterol (ADVAIR DISKUS) 100-50 mcg/dose diskus inhaler 1 puff 1 puff, inhalation, 2 times daily, First dose (after last modification) on 11/21/19 at 2100, Rinse mouth with water after use. Do not swallow. Given 11/28/2019 8:[address] RAILWAY LINE INSTALLER 1 puff Given 11/27/2019 8:[address] RAILWAY LINE INSTALLER 1 puff Given 11/27/2019 8:[address] RAILWAY LINE INSTALLER 1 puff furosemide (LASIX) tablet 20 mg 20 mg, oral, Daily, First dose on Sat11/20/19 at 1500 Given 11/28/2019 8:[address] RAILWAY LINE INSTALLER 20 mg Given 11/27/2019 8:[address] RAILWAY LINE INSTALLER 20 mg Given 11/26/2019 8:[address] RAILWAY LINE INSTALLER 20 mg gabapentin (NEURONTIN) capsule 300 mg 300 mg, oral, 4 times daily, First dose on Sat11/20/19 at 1700 Given 11/28/2019 12:[address] RAILWAY LINE INSTALLER 300 mg Given 11/28/2019 8:[address] RAILWAY LINE INSTALLER 300 mg Given 11/27/2019 8:[address] RA[employer]WAY LINE INSTALLER 300 mg glucagon injection 1 mg 1 mg, intramuscular, Administer over 1 Minutes, Every 30 min PRN, low blood sugar, blood glucose less than 70 mg/dL AND no IV access AND unable to take PO glucose/jiuce., Starting on 11/21/19 at 0913, After Glucagon is administered, position patient on [...] MD for each episode of hypoglycemia., Indications: HypoglycemiaIndications:Hypoglycemia guaiFENesin ER (MUCINEX) extended release tablet 600 mg 600 mg, oral, 2 times daily, First dose on Sat11/23/19 at 1200, Do not crush, chew, cut, dissolve, open or otherwise manipulate tablet/capsule. Given 11/28/2019 8:[address] RAILWAY LINE INSTALLER 600 mg Given 11/27/2019 8:[address] RAILWAY LINE INSTALLER 600 mg Given 11/27/2019 8:[address] RAILWAY LINE INSTALLER 600 mg heparin 10 unit/mL flush 20-50 Units 20-50 Units (2-5 mL), intra-catheter, As needed, line care, with each use, Starting on Sat11/20/19 at 1216, Do not use with Groshong catheter. Flush volume based on line type, size, and protocol., Indications: Maintain Patency of Indwelling Vascular CatheterIndications:Maintain Patency of Indwelling Vascular Catheter heparin 10 unit/mL flush 50 Units 50 Units (5 mL), intra-catheter, Every 12 hours scheduled, First dose on Sat11/20/19 at 1315, Do not use with Groshong catheter, Indications: Maintain Patency of Indwelling Vascular CatheterIndications:Maintain Patency of Indwelling Vascular Catheter Given 11/28/2019 8:[address] [employer] 50 U nits Given 11/27/2019 8:[address] [employer] 50 Units Given 11/23/2019 8:[address] [employer] 50 Units insulin glargine (LANTUS) injection 30 Units 30 Units, subcutaneous, Every morning, First dose on Sat11/20/19 at 1345, Do not mix with other insulins, Indications: Diabetes MellitusIndications:Diabetes Mellitus Given 11/22/2019 9:[address] [employer] 30 Units Left Upper Arm Given 11/21/2019 10:[address] [employer] 30 Units R ight Upper Arm Given 11/20/2019 1:[address] [employer] 30 Units Le ft Lower Abdomen insulin glargine (LANTUS) injection 40 Units 40 Units, subcutaneous, Nightly, First dose on Sat11/23/19 at 2100, Do not mix with other insulins, Indications: Diabetes MellitusIndications:Diabete s Mellitus Given 11/27/2019 9:[address] [employer] 40 Units Right Lower Abdomen Given 11/26/2019 9:[address] [employer] 40 Units Le ft Upper Arm Given 11/25/2019 9:[address] [employer] 40 Units Le ft Upper Arm insulin lispro (HumaLOG) injection 1-4 Units 1-4 Units, subcutaneous, Nightly, First dose on Sat11/20/19 at 2100, Blood Sugar High Dose PM - PO patients 139 or less No insulin 140 - 175 1 unit 176 - 200 2 units 201 - 250 3 units 251 - 299 4 units Greater than 299 Call MD for hyperglycemia management instructions Do NOT hold for NPO status., Indications: Diabetes MellitusIndications:Diabetes Mellitus Given 11/20/2019 8:[address] [employer] 3 Units Right Lower Abdomen insulin lispro (HumaLOG) injection 1-4 Units 1-4 Units, subcutaneous, Nightly, First dose on Sat11/23/19 at 2100, Blood Sugar High Dose PM - PO patients 139 or less No insulin 140 - 175 1 unit 176 - 200 2 units 201 - 250 3 units 251 - 299 4 units Greater than 299 Call MD for hyperglycemia management instructions Do NOT hold for NPO status., Indications: Diabetes MellitusIndications:Diabetes Mellitus Given 11/26/2019 9:[address] [employer] 4 Units Left Upper Arm Given 11/25/2019 9:[address] [employer] 4 Units Le ft Upper Arm insulin lispro (HumaLOG) injection 1-7 Units 1-7 Units, subcutaneous, 3 times daily with meals, First dose on Sat11/20/19 at 1800, Blood Sugar High Dose meal time - PO patients 139 or less No insulin 140 - 175 2 unit 176 - 200 3 unit 201 - 250 5 units 251 - 299 7 units Greater than 299 Call MD for hyperglycemia management instructions Do NOT hold for NPO status., Indications: Diabetes MellitusIndications:Diabetes Mellitus Given 11/22/2019 6:[address] [employer] 7 Units Left Upper Arm Given 11/22/2019 12:[address] [employer] 7 Units R ight Upper Arm Given 11/22/2019 7:[address] [employer] 7 Units Ri ght Upper Arm insulin lispro (HumaLOG) injection 1-7 Units 1-7 Units, subcutaneous, 3 times daily with meals, First dose on Sat11/23/19 at 1800, Blood Sugar High Dose meal time - PO patients 139 or less No insulin 140 - 175 2 unit 176 - 200 3 unit 201 - 250 5 units 251 - 299 7 units Greater than 299 Call MD for hyperglycemia management instructions Do NOT hold for NPO status., Indications: Diabetes MellitusIndications:Diabetes Mellitus Given 11/28/2019 8:[address] [employer] 3 Units Right Upper Abdomen Given 11/27/2019 5:[address] [employer] 7 Units Le ft Lower Abdomen Given 11/27/2019 7:[address] [employer] 5 Units Le ft Lower Abdomen insulin lispro (HumaLOG) injection 10 Units 10 Units, subcutaneous, Once, On Sat11/20/19 at 1800, For 1 dose, Indications: HyperglycemiaIndications:Hyp erglycemia Given 11/20/2019 5:[address] [employer] 10 Units Left Lower Abdomen insulin lispro (HumaLOG) injection 10 Units 10 Units, subcutaneous, Once, On Sat11/25/19 at 0615, For 1 dose, Indications: HyperglycemiaIndications:Hyp erglycemia Given 11/25/2019 6:[address] [employer] 10 Units Left Lower Abdomen insulin lispro (HumaLOG) injection 10 Units 10 Units, subcutaneous, Once, On Sat11/27/19 at 2345, For 1 dose, Indications: HyperglycemiaIndications:Hyp erglycemia Given 11/27/2019 11:[address] [employer] 10 Units Right Lower Abdomen insulin lispro (HumaLOG) injection 12 Units 12 Units, subcutaneous, 3 times daily with meals, First dose on Sat11/21/19 at 1200, If BG 100 mg/dl or more, give with meals/tube feeds . If BG less than 100 mg/dl, give after meals/tube feeds. Hold pre-meal insulin if NPO, unable to eat, or BG less than 70 mg/dl. Administer pre-meal doses when patient's food tray arrives in room or after the meal in patients with poor meal intake. If patient is not eating the majority of their meal, call MD for an adjustment in patient's insulin dose. Given 11/22/2019 6:[address] [employer] 12 Units Left Upper Arm Given 11/22/2019 12:[address] [employer] 12 Units R ight Upper Arm Given 11/22/2019 7:[address] [employer] 12 Units Ri ght Upper Arm insulin lispro (HumaLOG) injection 12 Units 12 Units, subcutaneous, Once, On Sat11/25/19 at 1800, For 1 dose, Indications: HyperglycemiaIndications:Hyp erglycemia Given 11/25/2019 5:[address] [employer] 12 Units Right Lower Abdomen insulin lispro (HumaLOG) injection 15 Units 15 Units, subcutaneous, Once, On Sat11/21/19 at 2230, For 1 dose, Indications: HyperglycemiaIndications:Hyp erglycemia Given 11/21/2019 10:[address] [employer] 15 Units Left Lower Abdomen insulin lispro (HumaLOG) injection 15 Units 15 Units, subcutaneous, 3 times daily with meals, First dose (after last modification) on Sat11/24/19 at 1800, If BG 100 mg/dl or more, give with meals/tube feeds . If BG less than 100 mg/dl, give after meals/tube feeds. Hold pre-meal insulin if NPO, unable to eat, or BG less than 70 mg/dl. Administer pre-meal doses when patient's food tray arrives in room or after the meal in patients with poor meal intake. If patient is not eating the majority of their meal, call MD for an adjustment in patient's insulin dose., Indications: Diabetes MellitusIndications:Diabetes Mellitus Given 11/27/2019 5:[address] [employer] 15 Units Left Lower Abdomen Given 11/27/2019 1:[address] [employer] 15 Units Ri ght Upper Arm Given 11/27/2019 7:[address] [employer] 15 Units Le ft Lower Abdomen insulin lispro (HumaLOG) injection 15 Units 15 Units, subcutaneous, Once, On Sat11/25/19 at 0400, For 1 dose, Indications: HyperglycemiaIndications:Hyp erglycemia Given 11/25/2019 3:[address] [employer] 15 Units Left Lower Abdomen insulin lispro (HumaLOG) injection 20 Units 20 Units, subcutaneous, 3 times daily with meals, First dose (after last modification) on Tu11/24/19 at 0800, If BG 100 mg/dl or more, give with meals/tube feeds . If BG less than 100 mg/dl, give after meals/tube feeds. Hold pre-meal insulin if NPO, unable to eat, or BG less than 70 mg/dl. Administer pre-meal doses when patient's food tray arrives in room or after the meal in patients with poor meal intake. If patient is not eating the majority of their meal, call MD for an adjustment in patient's insulin dose., Indications: Diabetes MellitusIndications:Diabetes Mellitus Given 11/24/2019 7:[address] [employer] 20 Units Right Upper Arm Given 11/23/2019 6:[address] [employer] 20 Units Le ft Upper Arm insulin lispro (HumaLOG) injection 20 Units 20 Units, subcutaneous, 3 times daily with meals, First dose (after last modification) on Sat11/28/19 at 0830, If BG 100 mg/dl or more, give with meals/tube feeds . If BG less than 100 mg/dl, give after meals/tube feeds. Hold pre-meal insulin if NPO, unable to eat, or BG less than 70 mg/dl. Administer pre-meal doses when patient's food tray arrives in room or after the meal in patients with poor meal intake. If patient is not eating the majority of their meal, call MD for an adjustment in patient's insulin dose., Indications: Diabetes MellitusIndications:Diabetes Mellitus Given 11/28/2019 12:[address] [employer] 20 Units Right Upper Arm Given 11/28/2019 8:[address] [employer] 20 Units Ri ght Upper Abdomen insulin lispro (HumaLOG) injection 6 Units 6 Units, subcutaneous, Once, On Sat11/22/19 at 2315, For 1 dose, Indications: HyperglycemiaIndications:Hy perglycemia Given 11/22/2019 11:[address] [employer] 6 Units Right Lower Abdomen insulin lispro (HumaLOG) injection 6 Units 6 Units, subcutaneous, As needed, high blood sugar, with snacks, Starting on Sat11/25/19 at 1639 Given 11/26/2019 9:[address] [employer] 6 Units Left Upper Arm insulin lispro (HumaLOG) injection 7 Units 7 Units, subcutaneous, Once, On Sat11/24/19 at 2215, For 1 dose, Indications: HyperglycemiaIndications:Hy perglycemia Given 11/24/2019 9:[address] [employer] 7 Units Left Upper Abdomen insulin lispro (HumaLOG) injection 7 Units 7 Units, subcutaneous, Once, On Sat11/25/19 at 0030, For 1 dose, Indications: HyperglycemiaIndications:Hy perglycemia Given 11/25/2019 12:[address] [employer] 7 Units Right Lower Abdomen insulin NPH (HumuLIN N, NovoLIN N) injection 10 Units 10 Units, subcutaneous, 2 times daily, First dose (after last modification) on Sat11/24/19 at 2100, Administer with steroids. Hold if steroids held or discontinued. Notify MD if steroid dose changes or held., Indications: Diabetes MellitusIndications:Diabete s Mellitus Given 11/26/2019 8:[address] [employer] 10 Units Left Upper Arm Given 11/25/2019 9:[address] [employer] 10 Units Le ft Upper Arm Given 11/25/2019 8:[address] [employer] 10 Units Ri ght Lower Abdomen insulin NPH (HumuLIN N, NovoLIN N) injection 15 Units 15 Units, subcutaneous, 2 times daily, First dose on Sat11/22/19 at 0915, Administer with steroids. Hold if steroids held or discontinued. Notify MD if steroid dose changes or held., Indications: Diabetes MellitusIndications:Diabetes Mellitus Given 11/22/2019 10:[address] [employer] 15 Units Right Lower Abdomen Given 11/22/2019 9:[address] [employer] 15 Units Le ft Upper Arm insulin NPH (HumuLIN N, NovoLIN N) injection 15 Units 15 Units, subcutaneous, 2 times daily, First dose on Sat11/23/19 at 1430, Administer with steroids. Hold if steroids held or discontinued. Notify MD if steroid dose changes or held., Indications: Diabetes MellitusIndications:Diabetes Mellitus Given 11/24/2019 9:[address] [employer] 15 Units Right Upper Arm Given 11/23/2019 8:[address] [employer] 15 Units Le ft Lower Abdomen Given 11/23/2019 2:[address] [employer] 15 Units Ri ght Upper Arm insulin NPH (HumuLIN N, NovoLIN N) injection 15 Units 15 Units, subcutaneous, Daily, First dose (after last modification) on Sat11/27/19 at 0900, Administer with steroids. Hold if steroids held or discontinued. Notify MD if steroid dose changes or held., Indications: Diabetes MellitusIndications:Diabete s Mellitus Given 11/28/2019 8:[address] [employer] 15 Units Right Upper Abdomen Given 11/27/2019 7:[address] [employer] 15 Units Le ft Lower Abdomen insulin regular (HumuLIN R, NovoLIN R) injection 10 Units 10 Units, intravenous, Once, On Sat11/23/19 at 1915, For 1 dose Given 11/23/2019 6:[address] [employer] 10 Units insulin regular (HumuLIN R, NovoLIN R) injection 10 Units 10 Units, intravenous, Once, On Sat11/23/19 at 2100, For 1 dose Given 11/23/2019 8:[address] [employer] 10 Units insulin regular (HumuLIN R, NovoLIN R) injection 10 Units 10 Units, intravenous, Once, On Sat11/23/19 at 2245, For 1 dose Given 11/23/2019 10:[address] [employer] 10 Units insulin regular (HumuLIN R, NovoLIN R) injection 5 Units 5 Units, intravenous, Once, On Sat11/23/19 at 0145, For 1 dose, Indications: HyperglycemiaIndications:Hypergly cemia Given 11/23/2019 1:[address] [employer] 5 Units insulin regular (HumuLIN R, NovoLIN R) injection 6 Units 6 Units, intravenous, Once, On Sat11/20/19 at 1400, For 1 dose, Indications: HyperglycemiaIndications:Hypergly cemia Given 11/20/2019 2:[address] [employer] 6 Units insulin regular (HumuLIN R, NovoLIN R) injection 8 Units 8 Units, intravenous, Once, On Sat11/21/19 at 0545, For 1 dose, Indications: HyperglycemiaIndications:Hypergly cemia Given 11/21/2019 5:[address] [employer] 8 Units insulin regular bolus from bag 4-10 Units 4-10 Units, intravenous, As needed, high blood sugar, Starting on Sat11/23/19 at 0829, INITIATE INFUSION: Blood Glucose (mg/dL) 181 - 220: Give 4 units IV bolus and start infusion 1 unit/hour 221 - 280: Give 4 units IV bolus and start infusion 2 units/hour 281 - 330: Give 6 units IV bolus and start infusion 2 units/hour 331 - 380: Give 8 units IV bolus and start infusion 3 units/hour 381 - 430: Give 10 units IV bolus and start infusion 3 units/hour Greater than 430: Call MD for orders Use the instructions above if the insulin infusion needs to be restarted., Indications: Diabetes MellitusIndications:Diabetes Mellitus Bolus from Bag 11/23/2019 9:[address] [employer] 10 Units insulin regular bolus from bag 4-6 Units 4-6 Units, intravenous, Every 1 hour PRN, high blood sugar per infusion instructions., Starting on Sat11/23/19 at 0829, Administer additional IV bolus doses as directed in insulin infusion order., Indications: Diabetes MellitusIndications:Diabetes Mellitus Bolus from Bag 11/23/2019 11:[address] [employer] 6 Units Bolus from Bag 11/23/2019 10:[address] [employer] 6 Units insulin regular in 0.9% sodium chloride 100 units/100 mL infusion (premix) 0-30 Units/hr (0-30 mL/hr), 1 units/mL, intravenous, Titrated, Starting on Sat11/23/19 at 0915, Until Sat11/23/19 at 1733, Indications: Diabetes Mellitus, Blood Glucose (BG) - BG DECREASED OR SAME as last value: Less than 70 mg/dL - Stop insulin infusion. Follow hypoglycemia orders. Notify covering MD. 70 - 100 mg/dL - Stop infusion. Resume BG Q 1 hour. 101 - 160 mg/dL - If BG decreased by greater than or equal to 40 mg/dL, decrease infusion by 50% or stop infusion if less than or equal to 2 units/hour. Resume BG Q 1 hour. If BG decreased less than 40 mg/dL, continue same rate. 161 - 200 mg/dL- If BG decreased by greater than or equal to 60 mg/dL, decrease infusion by 50% or stop infusion if less than or equal to 2 units/hour. Resume BG Q 1 hour. If BG decreased less than 60 mg/dL, continue same rate. 201 - 250 mg/dl - If BG decreased by greater than or equal to 60 mg/dL continue same rate. If decreased by less than 60 mg/dL, increase by 1 unit/hr. 251 - 300 mg/dL - Increase by 2 units/hour. 301 - 349 mg/dL - Increase by 2 units/hour. 350 - 400 mg/dL - Increase by 3 units/hr. Greater than 400 mg/dL - Notify covering MD Blood Glucose (BG) - Blood glucose INCREASED since last value: 70 - 100 mg/dL - Continue to hold infusion 101 - 160 mg/dL - Maintain at present rate. 161 - 200 mg/dL- Increase by or restart at 1 unit/hour. 201 - 250 mg/dL- Give 4 units insulin IV bolus then increase infusion by or restart at 2 units/hour. 251 - 300 mg/dL - Give 4 units insulin IV bolus then increase infusion by or restart at 2 units/hour. 301 - 349 mg/dL - Give 6 units insulin IV bolus then increase infusion by or restart at 3 units/hour. 350 - 400 mg/dL - Give 6 units insulin IV bolus then increase infusion by or restart at 3 units/hour. Greater than 400 mg/dL - Notify covering MD. Patients with renal failure (CrCl less than 40 mL/min, urine output less than 30 mL/hr, or receiving dialysis) limit infusion rate increases to be NO SOONER THAN EVERY 3 HOURS. Patients with type 1 diabetes or equivalent: Do not discontinue drip until insulin maintenance regimen is implemented. Notify the provider when stopping the infusion. When new IV tubing is used, completely prime the tubing. Once primed, waste an additional 20 ml of insulin infusion using the IV pump prior to connecting to patient., RoutineIndications:Diabetes Mellitus New Bag 11/23/2019 2:[address] [employer] 5 Units/hr 5 mL/hr Rate/Dose Verify 11/23/2019 1:[address] [employer] 11 Units/hr 11 mL/ hr Rate/Dose Change 11/23/2019 1:[address] [employer] 11 Units/hr 11 mL/ hr [facility] ruxolitinib (/INCB [id number]) tablet 5 mg 5 mg, oral, 2 times daily, First dose on Sat11/27/19 at 2100Indications:Ekjer-eqzvax-yikv disease (HCC) Given 11/28/2019 8:[address] [employer] 5 mg Given 11/27/2019 10:[address] [employer] 5 mg ioversol (OPTIRAY 350) syringe syringe 100 mL 100 mL, intravenous, Once in imaging, contrast, Starting on Sat11/20/19 at 1651, For 1 dose Given 11/20/2019 5:[address] [employer] 100 mL loperamide (IMODIUM) capsule 2 mg 2 mg, oral, Every 1 hour PRN, diarrhea, after each liquid stool (ensure that at least one C. diff assay is negative prior to initiating), Starting on Sat11/20/19 at 1216, Total loperamide dose should not exceed 16 mg in 24 hours., Indications: diarrheaIndications:diarrhea magnesium sulfate 4 g/100 mL in water (premix) 4 g 4 g, intravenous, Administer over 90 Minutes, Every 4 hours PRN, magnesium replacement, Starting on Sat11/20/19 at 1218, For magnesium level of 1.2-1.5 mg/dL, Indications: hypomagnesemiaIndications:hypomagnesemia magnesium sulfate 6 g in sodium chloride 0.9% 250 mL IVPB 6 g, intravenous, at 131 mL/hr, Administer over 120 Minutes, Every 4 hours PRN, magnesium replacement, Starting on Sat11/20/19 at 1218, For magnesium level less than 1.2 mg/dL and call/notify provider., Indications: hypomagnesemiaIndications:hypomagnesemia montelukast (SINGULAIR) tablet 10 mg 10 mg, oral, Nightly, First dose on Sat11/20/19 at 2100 Given 11/27/2019 8:[address] [employer] 10 mg Given 11/26/2019 9:[address] [employer] 10 mg Given 11/25/2019 9:[address] [employer] 10 mg mycophenolate mofetil (CELLCEPT) tablet 1,000 mg 1,000 mg, oral, 2 times daily, First dose on Sat11/20/19 at 2100, Do not crush, chew, cut, dissolve, open or otherwise manipulate tablet/capsule. Given 11/28/2019 8:[address] [employer] 1,000 mg Given 11/27/2019 8:[address] [employer] 1,000 mg Given 11/27/2019 8:[address] [employer] 1,000 mg nicotine (NICODERM CQ) 21 mg patch 24 hour 1 patch 1 patch, transdermal, Administer over 24 Hours, Daily, First dose on Sat11/20/19 at 1500 Medication Applied 11/28/2019 8:[address] [employer] 1 patch Left Arm Medication Applied 11/27/2019 8:[address] [employer] 1 patch Right Arm Medication Applied 11/26/2019 8:[address] [employer] 1 patch Left Arm ofloxacin (OCUFLOX) 0.3 % ophthalmic solution 1 drop 1 drop, each eye, 2 times daily, First dose on Sat11/20/19 at 2100 Given 11/28/2019 8:[address] [employer] 1 drop Given 11/27/2019 8:[address] [employer] 1 drop Given 11/27/2019 8:[address] [employer] 1 drop oxyCODONE (ROXICODONE) tablet 5 mg 5 mg, oral, 4 times daily PRN, 1st line for pain, Starting on Sat11/20/19 at 1936, Indications: PainIndications:Pain Given 11/28/2019 5:[address] [employer] 5 mg Given 11/27/2019 5:[address] [employer] 5 mg Given 11/27/2019 6:[address] [employer] 5 mg perflutren protein-a (OPTISON) 3 mL in sodium chloride 0.9% 8 mL syringe 1-8 mL, intravenous, Once in imaging, contrast, Starting on Sat11/23/19 at 1600, For 1 dose, Intra-Procedure (CV) Given by Other 11/23/2019 4:[address] [employer] 6 mL polyvinyl alcohol (LIQUIFILM TEARS) 1.4 % ophthalmic solution 2 drop 2 drop, each eye, Every 4 hours PRN, dry eyes, Starting on Sat11/20/19 at 1216, Indications: Dry EyeIndications:Dry Eye potassium chloride 40 mEq/520 mL in sodium chloride 0.9% (premix) 40 mEq 40 mEq, intravenous, at 130 mL/hr, Administer over 4 Hours, Every 4 hours PRN, potassium replacement, Starting on Sat11/20/19 at 1218, 40 mEq X1 dose for potassium less than 2.6 mmol/L, call prescriber for additional orders; 40 mEq X2 doses for potassium 2.6-2.9 mmol/L, stat potassium level after 2nd dose; 40 mEq X2 doses for potassium 3-3.1 mmol/L; 40 mEq X1 dose for potassium 3.2-3.5 mmol/L (may use oral if tolerated)., Indications: hypokalemiaIndications:hypokalemia potassium chloride ER (KLOR-CON) extended release tablet 40 mEq 40 mEq, oral, Every 4 hours PRN, potassium replacement, Starting on Sat11/20/19 at 1218, For potassium 3.2-3.5 mmol/L, give 40 mEq X1 dose (may use IV if oral not tolerated). Do not crush, chew, cut, dissolve, open or otherwise manipulate tablet/capsule., Indications: hypokalemiaIndications:hypokalemia pramoxine-zinc oxide (TRONOLANE) 1-5 % rectal cream rectal, 3 times daily PRN, hemorrhoids, Starting on Sat11/20/19 at 1216, Apply to affected area: other, Indications: HemorrhoidsIndications:Hemorrhoids predniSONE (DELTASONE) tablet 20 mg 20 mg, oral, 2 times daily, First dose (after last modification) on Sat11/23/19 at 2100 Given 11/26/2019 8:[address] [employer] 20 mg Given 11/25/2019 9:[address] [employer] 20 mg Given 11/25/2019 8:[address] [employer] 20 mg predniSONE (DELTASONE) tablet 20 mg 20 mg, oral, Daily, First dose (after last modification) on Sat11/27/19 at 0900 Given 11/28/2019 8:[address] [employer] 20 mg Given 11/27/2019 8:[address] [employer] 20 mg predniSONE (DELTASONE) tablet 40 mg 40 mg, oral, 2 times daily, First dose on Sat11/20/19 at 2100 Given 11/23/2019 8:[address] [employer] 40 mg Given 11/22/2019 8:[address] [employer] 40 mg Given 11/22/2019 9:[address] [employer] 40 mg rivaroxaban (XARELTO) tablet 20 mg 20 mg, oral, Daily with dinner, First dose on Sat11/20/19 at 1800, Nurse to discontinue heparin infusion order and associated bolus at first administration of rivaroxaban using ? order condition met? order source. If patient is eating, administer doses 15 mg and greater with food. If patient is not eating, still administer dose unless instructed differently by provider., Indications: Venous ThrombosisIndications:Venous Thrombosis Given 11/27/2019 5:[address] [employer] 20 m g Given 11/26/2019 4:[address] [employer] 20 mg Given 11/25/2019 9:[address] [employer] 20 mg ruxolitinib (JAKAFI) tablet 5 mg 5 mg, oral, 2 times daily, First dose on Sat11/23/19 at 1230, I have discussed continuation of this medication with the following kick press setter/oncologist: Dipersio Given 11/27/2019 8:[address] [employer] 5 mg Given 11/26/2019 9:[address] [employer] 5 mg Given 11/26/2019 10:[address] [employer] 5 mg sodium chloride (OCEAN) 0.65 % nasal spray 2 spray 2 spray, each nostril, Every 1 hour PRN, other, dryness, Starting on Sat11/20/19 at 1216, Indications: Dry NoseIndications:Dry Nose sodium chloride 0.9 % irrigation 30 mL 30 mL, swish & spit, 4 times daily, First dose on Sat11/20/19 at 1315, Use as mouth rinse for oral care. Given 11/28/2019 12:[address] [employer] 30 mL Given 11/28/2019 8:[address] [employer] 30 mL Given 11/27/2019 8:[address] [employer] 30 mL sodium chloride 0.9% bolus 500 mL 500 mL, intravenous, Once, On Sat11/20/19 at 2015, For 1 dose New Bag 11/20/2019 8:[address] [employer] 500 mL sodium chloride 0.9% flush 0.5-20 mL 0.5-20 mL, intra-catheter, Every 8 hours scheduled, First dose on Sat11/20/19 at 1400, Flush volume based on line type and size. Given 11/27/2019 1:[address] [employer] 10 mL Given 11/27/2019 11:[address] [employer] 10 mL Given 11/26/2019 4:[address] [employer] 10 mL sodium chloride 0.9% flush 0.5-20 mL 0.5-20 mL, intra-catheter, As needed, line care, Starting on Sat11/20/19 at 1218, Flush volume based on line type and size. Flush before and after each use. Given 11/21/2019 9:[address] [employer] 10 mL sodium chloride 0.9% infusion 30 mL/hr, intravenous, Continuous PRN, KVO for medication administrations, Starting on Sat11/20/19 at 1216 New Bag 11/24/2019 5:[address] [employer] 30 mL/hr 30 mL/hr Rate/Dose Verify 11/21/2019 6:[address] [employer] 30 mL/hr 30 mL/h r Rate/Dose Verify 11/21/2019 4:[address] [employer] 30 mL/hr 30 mL/h r sodium chloride 0.9% IVPB 0-250 mL 0-250 mL, intravenous, As needed, flush tubing for blood product administration, Starting on Sat11/20/19 at 1216, Prime blood tubing and administer amount needed to clear line (usually 50-100 mL) after transfusion complete. sulfamethoxazole-trimethoprim (BACTRIM DS) 800-160 mg per tablet 160 mg of trimethoprim 160 mg of trimethoprim, oral, User Specified (2 times per day on Sat), First dose on Sat11/23/19 at 0900, Indications: Pneumocystis/Toxoplasmosis ProphylaxisIndications:Pneumoc ystis/Toxoplasmosis Prophylaxis Given 11/26/2019 9:[address] [employer] 160 mg of trimethoprim Given 11/26/2019 8:[address] [employer] 160 mg of trimethoprim Given 11/23/2019 8:[address] [employer] 160 mg of trimethoprim tacrolimus (PROGRAF) capsule 0.5 mg 0.5 mg, oral, Every other day, First dose on Sat11/20/19 at 1500, Avoid grapefruit juice Given 11/28/2019 8:[address] [employer] 0 .5 mg Given 11/26/2019 8:[address] [employer] 0.5 mg Given 11/24/2019 12:[address] [employer] 0.5 mg tiotropium (SPIRIVA) 18 mcg per inhalation capsule 1 capsule 1 capsule, inhalation, Daily (staff respiratory therapist), First dose (after last modification) on Sat11/21/19 at 0800, To ensure drug delivery, the contents of each capsule should be inhaled twice. Inhalation only. Given 11/21/2019 7:[address] [employer] 1 capsule tiotropium (SPIRIVA) 18 mcg per inhalation capsule 1 capsule 1 capsule, inhalation, Daily, First dose (after last modification) on Sat11/22/19 at 0900, To ensure drug delivery, the contents of each capsule should be inhaled twice. Inhalation only. Given 11/28/2019 9:[address] [employer] 1 capsule Given 11/27/2019 8:[address] [employer] 1 capsule Given 11/26/2019 8:[address] [employer] 1 capsule vancomycin 1,000 mg/200 mL in dextrose 5% (premix) 1,000 mg 1,000 mg, intravenous, Administer over 60 Minutes, Every 12 hours, First dose (after last modification) on Sat11/22/19 at 2345, Indications: Neutropenic Fever, On hold since Sat11/24/2019 at 1350 until manually unheldIndications:Neutropenic Fever New Bag 11/24/2019 12:[address] [employer] 1,000 mg New Bag 11/24/2019 12:[address] [employer] 1,000 mg New Bag 11/23/2019 11:[address] [employer] 1,000 mg vancomycin 1,250 mg/112.5 mL sodium chloride 0.9% (premix) 1,250 mg 1,250 mg (rounded from 1,161 mg = 15 mg/kg ? 77.4 kg), intravenous, Administer over 90 Minutes, Every 12 hours, First dose on Sat11/20/19 at 1900, Central line only, Indications: SepsisIndications:Sepsis New Bag 11/21/2019 9:[address] [employer] 1,250 mg New Bag 11/20/2019 8:[address] [employer] 1,250 mg vancomycin 1,250 mg/262.5 mL in sodium chloride 0.9% (premix) 1,250 mg 1,250 mg (rounded from 1,164 mg = 15 mg/kg ? 77.6 kg), intravenous, Administer over 60 Minutes, Every 12 hours, First dose on Sat11/21/19 at 2230, Indications: Neutropenic FeverIndications:Neutropenic Fever New Bag 11/22/2019 9:[address] [employer] 1,250 mg New Bag 11/21/2019 10:[address] [employer] 1,250 mg vancomycin 1500 mg/515 mL in sodium chloride 0.9% (premix) 1,500 mg 1,500 mg, intravenous, Administer over 90 Minutes, Every 24 hours, First dose on Sat11/25/19 at 1200, Indications: Pneumonia, AspirationIndications:Pneumonia, Aspiration New Bag 11/26/2019 11:[address] [employer] 1,500 mg New Bag 11/25/2019 11:[address] [employer] 1,500 mg voriCONAZOLE (VFEND) tablet 200 mg 200 mg, oral, 2 times daily, First dose on Sat11/20/19 at 2100, Indications: Prophylaxis, MedicalIndications:Prophylaxis, Medical Given 11/28/2019 8:[address] [employer] 200 mg Given 11/27/2019 8:[address] [employer] 200 mg Given 11/27/2019 8:[address] [employer] 200 mg white petrolatum-mineral oil (EUCERIN) cream topical, Every 2 hours PRN, dry skin, Starting on Sat11/20/19 at 1216, Apply to affected area: other, Indications: Dry SkinIndications:Dry Skin documented in this encounter Discontinued Medications Medication Sig Discontinue Reason Start Date End Da te gabapentin (NEURONTIN) 300 mg capsuleIndications:Type 2 diabetes mellitus with hyperosmolarity without coma, with long-term current use of insulin ([facility]) TAKE 1 PO QD Reorder 08/21/2019 11/26/2019 ruxolitinib (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 Take with or without food. 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 Take with or without food. Stop Taking at Discharge 11/26/2019 11/27/2019 voriCONAZOLE (VFEND) 200 mg tabletIndications:Prophy laxis, Medical Take 1 tablet (200 mg total) by mouth 2 (two) times a day 11/26/2019 11/27/2019 HUMALOG KWIKPEN INSULIN 100 unit/mL insulin penIndications:type 2 diabetes mellitus INJECT 10 -16 UNITS BEFORE MEALS. Reorder 08/07/2019 11/27/2019 BASAGLAR KWIKPEN U-100 INSULIN 100 unit/mL (3 mL) insulin penIndications:Type 2 diabetes mellitus with hyperosmolarity without coma, with long-term current use of insulin (HCC) INJECT 35 UNITS Q AM Reorder 08/25/2019 11/27/2019 HUMALOG KWIKPEN INSULIN 100 unit/mL insulin penIndications:type 2 diabetes mellitus Inject 20 Units under the skin 3 (three) times a day with meals Reorder 11/27/2019 11/28/2019 BASAGLAR KWIKPEN U-100 INSULIN 100 unit/mL (3 mL) insulin penIndications:Type 2 diabetes mellitus with hyperosmolarity without coma, with long-term current use of insulin ([facility]) Inject 40 Units under the skin nightly Reorder 11/27/2019 11/28/2019 voriCONAZOLE (VFEND) 200 mg tabletIndications:Prophy laxis, Medical Take 1 tablet (200 mg total) by mouth 2 (two) times a day 11/27/2019 11/28/2019 HUMALOG KWIKPEN INSULIN 100 unit/mL insulin penIndications:type 2 diabetes mellitus Inject 20 Units under the skin 3 (three) times a day with meals Reorder 11/28/2019 11/28/2019 BASAGLAR KWIKPEN U-100 INSULIN 100 unit/mL (3 mL) insulin penIndications:Type 2 diabetes mellitus with hyperosmolarity without coma, with long-term current use of insulin ([facility]) Inject 45 Units under the skin nightly Reorder 11/28/2019 11/28/2019 predniSONE (DELTASONE) 20 mg tablet Take 1 tablet (20 mg) by mouth daily 11/27/2019 11/28/2019 glucagon (glucagon) 1 mg kitIndications:AML (acute myeloid leukemia) in remission (HCC) USE DIRECTED AT SCHOOL AND HOME Stop Taking at Discharge 12/14/2013 11/28/2019 sodium chloride-sodium bicarbonate (NEILMED SINUS RINSE, AYR) packet with rinse device Administer 240 mL (1 packet total) into each nostril daily as needed (sinus congestion). Stop Taking at Discharge 11/24/2018 11/28/2019 ADVAIR DISKUS 100-50 mcg/dose diskus inhalerIndications:AML (acute myeloid leukemia) in remission (HCC) INHALE 1 DOSE BY MOUTH TWICE DAILY Stop Taking at Discharge 04/06/2019 11/28/2019 sildenafil, antihypertensive, (REVATIO) 20 mg tablet TAKE ONE TO FIVE TABLETS BY MOUTH DAILY NEEDED Stop Taking at Discharge 05/01/2019 11/28/2019 sulfamethoxazole-trimeth oprim (BACTRIM DS,SEPTRA DS) 800-160 mg per tablet TAKE 1 TABLET BY MOUTH TWICE DAILY ON Saturday. 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 Scheduled Medication Order 11/26/2019 11/27/2019 11/28/2019 acyclovir (ZOVIRAX) tablet 400 mg 400 mg, oral, Every 8 hours, First dose on Sat11/20/19 at 1500, Indications: Prophylaxis, Medical 0827 (Given - Provider: Rosy Hidalgo RN)1639 (Given - Provider: Rosy Hidalgo RN)2348 (Given - Provider: Narcisa Rivero RN) 0833 (Given - Provider: Yasmeen Solis RN)1700 (Given - Provider: Yasmeen Solis RN)2318 (Given - Provider: Betty Montemayor RN) 0828 (Given - Provider: Regi Oro RN) amoxicillin-clavulanate (AUGMENTIN) 875-125 mg per tablet 875 mg of amoxicillin 875 mg of amoxicillin, oral, 2 times daily, First dose on Sat11/27/19 at 1300, Indications: Pneumonia, Aspiration 1311 (Given - Provider: Yasmeen Solis RN)2036 (Given - Provider: Betty Montemayor RN) 0829 (Given - Provider: Regi Oro, BECKI) atorvastatin (LIPITOR) tablet 40 mg 40 mg, oral, Daily, First dose on Sat11/20/19 at 1500 0827 (Given - Provider: Rosy Hidalgo RN) 0833 (Given - Provider: Yasmeen Solis RN) 0828 (Given - Provider: Regi Oro, RN) azithromycin (ZITHROMAX) tablet 250 mg 250 mg, oral, 3 times weekly (Once per day on Sat), First dose (after last modification) on Sat11/20/19 at 1545, Indications: Prophylaxis, Medical 0833 (Given - Provider: Yasmeen Solis RN) cefepime (MAXIPIME) 2,000 mg/20 mL in sterile water (premix) 2,000 mg (CANCELED) 2,000 mg, intravenous, at 40 mL/hr, Administer over 30 Minutes, Every 12 hours scheduled, First dose on Sat11/20/19 at 1845, Indications: Sepsis 0548 (New Bag - Provider: Narcisa Rivero RN)0820 (Stopped - Provider: Rosy Hidalgo RN)1711 (New Bag - Provider: Rosy Hidalgo RN)1741 (Stopped - Provider: Narcisa Rivero, RN) 0500 (New Bag - Provider: Narcisa Rivero RN)0530 (Stopped - Provider: Yasmeen Solis RN) cholecalciferol (VITAMIN D-3) capsule 2,000 Units 2,000 Units, oral, Daily, First dose on Sat11/23/19 at 1430 0827 (Given - Provider: Rosy Hidalgo RN) 0833 (Given - Provider: Yasmeen Solis RN) 0829 (Given - Provider: Regi Oro, BECKI) ergocalciferol (VITAMIN D) capsule 50,000 Units 50,000 Units, oral, Weekly, First dose on Sat11/20/19 at 1500, For 194 days 0833 (Given - Provider: Yasmeen Solis RN) fluticasone propion-salmeterol (ADVAIR DISKUS) 100-50 mcg/dose diskus inhaler 1 puff 1 puff, inhalation, 2 times daily, First dose (after last modification) on Sat11/21/19 at 2100, Rinse mouth with water after use. Do not swallow. 0829 (Given - Provider: Rosy Hidalgo RN)2113 (Given - Provider: Narcisa Rivero RN) 0837 (Given - Provider: Yasmeen Solis RN)2042 (Given - Provider: Betty Montemayor RN) 0843 (Given - Provider: Regi Oro RN) furosemide (LASIX) tablet 20 mg 20 mg, oral, Daily, First dose on Sat11/20/19 at 1500 0827 (Given - Provider: Rosy Hidalgo RN) 0833 (Given - Provider: Yasmeen Solis RN) 0829 (Given - Provider: Regi Oro RN) gabapentin (NEURONTIN) capsule 300 mg 300 mg, oral, 4 times daily, First dose on Sat11/20/19 at 1700 0827 (Given - Provider: Rosy Hidalgo RN)1150 (Given - Provider: Rosy Hidalgo RN)1639 (Given - Provider: Rosy Hidalgo RN)2107 (Given - Provider: Narcisa Rivero RN) 0833 (Given - Provider: Yasmeen Solis RN)1121 (Given - Provider: Yasmeen Solis RN)1702 (Given - Provider: Yasmeen Solis RN)2036 (Given - Provider: Betty Montemayor RN) 0835 (Given - Provider: Regi Oro RN)1214 (Given - Provider: Regi Oro RN) guaiFENesin ER (MUCINEX) extended release tablet 600 mg 600 mg, oral, 2 times daily, First dose on Sat11/23/19 at 1200, Do not crush, chew, cut, dissolve, open or otherwise manipulate tablet/capsule. 0828 (Given - Provider: Rosy Hidalgo RN)2107 (Given - Provider: Narcisa Rivero RN) 0834 (Given - Provider: Yasmeen Solis RN)2036 (Given - Provider: Betty Montemayor RN) 0828 (Given - Provider: Regi Oro RN) heparin 10 unit/mL flush 50 Units 50 Units (5 mL), intra-catheter, Every 12 hours scheduled, First dose on Sat11/20/19 at 1315, Do not use with Groshong catheter, Indications: Maintain Patency of Indwelling Vascular Catheter 0830 (Not Given - Provider: Rosy Hidalgo RN - Reason: Order parameters not met) 0233 (Not Given - Provider: Narcisa Rivero RN - Reason: Other)0838 (Not Given - Provider: Yasmeen Solis RN - Reason: Order parameters not met - Comment: periph iv only)2044 (Given - Provider: Betty Montemayor, BECKI) 08 (Given - Provider: Regi Oro, BECKI) insulin glargine (LANTUS) injection 40 Units 40 Units, subcutaneous, Nightly, First dose on Sat11/23/19 at 2100, Do not mix with other insulins, Indications: Diabetes Mellitus 2105 (Given - Provider: Narcisa Rivero RN) 2099 (Given - Provider: Betty Montemayor, BECKI) insulin lispro (HumaLOG) injection 1-4 Units 1-4 Units, subcutaneous, Nightly, First dose on Sat11/23/19 at 2100, Blood Sugar High Dose PM - PO patients 139 or less No insulin 140 - 175 1 unit 176 - 200 2 units 201 - 250 3 units 251 - 299 4 units Greater than 299 Call MD for hyperglycemia management instructions Do NOT hold for NPO status., Indications: Diabetes Mellitus 2105 (Given - Provider: Narcisa Rivero RN) 2316 (Not Given - Provider: Betty Montemayor RN - Reason: See Provider Order) insulin lispro (HumaLOG) injection 1-7 Units 1-7 Units, subcutaneous, 3 times daily with meals, First dose on Sat11/23/19 at 1800, Blood Sugar High Dose meal time - PO patients 139 or less No insulin 140 - 175 2 unit 176 - 200 3 unit 201 - 250 5 units 251 - 299 7 units Greater than 299 Call MD for hyperglycemia management instructions Do NOT hold for NPO status., Indications: Diabetes Mellitus 0828 (Given - Provider: Rosy Hidalgo RN)1151 (Given - Provider: Rosy Hidalgo RN)1706 (Given - Provider: Rosy Hidalgo RN) 0721 (Given - Provider: Yasmeen Solis RN)1129 (Not Given - Provider: Yasmeen Solis RN - Reason: Order parameters not met - Comment: [phone] (Given - Provider: Yasmeen Solis RN) 0831 (Given - Provider: Regi Oro, RN)1215 (Not Given - Provider: Regi Oro, BECKI - Reason: Order parameters not met - Comment: 108) insulin lispro (HumaLOG) injection 10 Units (COMPLETED) 10 Units, subcutaneous, Once, On Sat11/27/19 at 2345, For 1 dose, Indications: Hyperglycemia 2317 (Given - Provider: Betty Montemayor RN) insulin lispro (HumaLOG) injection 15 Units (CANCELED) 15 Units, subcutaneous, 3 times daily with meals, First dose (after last modification) on Sat11/24/19 at 1800, If BG 100 mg/dl or more, give with meals/tube feeds . If BG less than 100 mg/dl, give after meals/tube feeds. Hold pre-meal insulin if NPO, unable to eat, or BG less than 70 mg/dl. Administer pre-meal doses when patient's food tray arrives in room or after the meal in patients with poor meal intake. If patient is not eating the majority of their meal, call MD for an adjustment in patient's insulin dose., Indications: Diabetes Mellitus 0828 (Given - Provider: Rosy Hidalgo RN)1151 (Given - Provider: Rosy Hidalgo RN)1707 (Given - Provider: Rosy Hidalgo RN) 0721 (Given - Provider: Yasmeen Solis, RN)1310 (Given - Provider: Yasmeen Solis, RN)1732 (Given - Provider: Yasmeen Solis RN) insulin lispro (HumaLOG) injection 20 Units 20 Units, subcutaneous, 3 times daily with meals, First dose (after last modification) on Sat11/28/19 at 0830, If BG 100 mg/dl or more, give with meals/tube feeds . If BG less than 100 mg/dl, give after meals/tube feeds. Hold pre-meal insulin if NPO, unable to eat, or BG less than 70 mg/dl. Administer pre-meal doses when patient's food tray arrives in room or after the meal in patients with poor meal intake. If patient is not eating the majority of their meal, call MD for an adjustment in patient's insulin dose., Indications: Diabetes Mellitus 0831 (Given - Provider: Regi Oro, BECKI)1214 (Given - Provider: Regi Oro, BECKI) insulin NPH (HumuLIN N, NovoLIN N) injection 10 Units (CANCELED) 10 Units, subcutaneous, 2 times daily, First dose (after last modification) on Sat11/24/19 at 2100, Administer with steroids. Hold if steroids held or discontinued. Notify MD if steroid dose changes or held., Indications: Diabetes Mellitus 0828 (Given - Provider: Rosy Hidalgo RN) insulin NPH (HumuLIN N, NovoLIN N) injection 15 Units 15 Units, subcutaneous, Daily, First dose (after last modification) on Sat11/27/19 at 0900, Administer with steroids. Hold if steroids held or discontinued. Notify MD if steroid dose changes or held., Indications: Diabetes Mellitus 0721 (Given - Provider: Yasmeen Solis RN) 0830 (Given - Provider: Regi Oro, BECKI) [facility] ruxolitinib [facility] [id number]) tablet 5 mg 5 mg, oral, 2 times daily, First dose on Sat11/27/19 at 2100 2200 (Given - Provider: Betty Montemayor RN) 0845 (Given - Provider: Regi Oro RN) [facility] ruxolitinib (/INCB [id number]) tablet 5 mg 5 mg, oral, 2 times daily, First dose on Sat11/27/19 at 1330, Take at about the same time(s) each day with an 8oz glass of water. Doses may be taken without regard to food. Do not make up missed or vomited doses. Avoid grapefruit/grapefruit products and [place] oranges. 1330 (Due) montelukast (SINGULAIR) tablet 10 mg 10 mg, oral, Nightly, First dose on Sat11/20/19 at 2100 2106 (Given - Provider: Narcisa Rivero RN) 2036 (Given - Provider: Betty Montemayor RN) mycophenolate mofetil (CELLCEPT) tablet 1,000 mg 1,000 mg, oral, 2 times daily, First dose on Sat11/20/19 at 2100, Do not crush, chew, cut, dissolve, open or otherwise manipulate tablet/capsule. 08 (Given - Provider: Rosy Hidalgo RN)2105 (Given - Provider: Narcisa Rivero RN) 0833 (Given - Provider: Yasmeen Solis RN)2035 (Given - Provider: Betty Montemayor, BECKI) 0828 (Given - Provider: Regi Oro, BECKI) nicotine (NICODERM CQ) 21 mg patch 24 hour 1 patch 1 patch, transdermal, Administer over 24 Hours, Daily, First dose on Sat11/20/19 at 1500 0829 (Medication Removed - Provider: Rosy Hidalgo RN)0830 (Medication Applied - Provider: Rosy Hidalgo RN) 0832 (Medication Removed - Provider: Yasmeen Solis RN)0833 (Medication Applied - Provider: Yasmeen Solis RN) 0831 (Medication Removed - Provider: Regi Oro, BECKI)0833 (Medication Applied - Provider: Regi Oro, BECKI)1331 (Due: Medication Removed - Provider: Automatic Discharge Provider - Comment: Time automatically adjusted from order being discontinued) ofloxacin (OCUFLOX) 0.3 % ophthalmic solution 1 drop 1 drop, each eye, 2 times daily, First dose on Sat11/20/19 at 2100 0829 (Given - Provider: Rosy Hidalgo RN)2114 (Given - Provider: Narcisa Rivero RN) 0837 (Given - Provider: Yasmeen Solis RN)2042 (Given - Provider: Betty Montemayor, BECKI) 0843 (Given - Provider: Regi Oro, BECKI) predniSONE (DELTASONE) tablet 20 mg (CANCELED) 20 mg, oral, 2 times daily, First dose (after last modification) on Sat11/23/19 at 2100 0828 (Given - Provider: Rosy Hidalgo RN) predniSONE (DELTASONE) tablet 20 mg 20 mg, oral, Daily, First dose (after last modification) on Sat11/27/19 at 0900 0834 (Given - Provider: Yasmeen Solis RN) 0829 (Given - Provider: Regi Oro, BECKI) rivaroxaban (XARELTO) tablet 20 mg 20 mg, oral, Daily with dinner, First dose on Sat11/20/19 at 1800, Nurse to discontinue heparin infusion order and associated bolus at first administration of rivaroxaban using ? order condition met? order source. If patient is eating, administer doses 15 mg and greater with food. If patient is not eating, still administer dose unless instructed differently by provider., Indications: Venous Thrombosis 1639 (Given - Provider: Rosy Hidalgo RN) 1702 (Given - Provider: Yasmeen Solis RN) ruxolitinib (JAKAFI) tablet 5 mg (CANCELED) 5 mg, oral, 2 times daily, First dose on Sat11/23/19 at 1230, I have discussed continuation of this medication with the following kick press setter/oncologist: Ivon 1017 (Given - Provider: Rosy Hidalgo RN)2107 (Given - Provider: Narcisa Rivero, BECKI) 0833 (Given - Provider: Yasmeen Solis RN) sodium chloride 0.9 % irrigation 30 mL 30 mL, swish & spit, 4 times daily, First dose on Sat11/20/19 at 1315, Use as mouth rinse for oral care. 0800 (Given - Provider: Rosy Hidalgo RN)1150 (Given - Provider: Rosy Hidalgo RN)1640 (Given - Provider: Rosy Hidalgo RN) 0233 (Not Given - Provider: Narcisa Rivero RN - Reason: Other)0834 (Given - Provider: Yasmeen Solis RN)1121 (Given - Provider: Yasmeen Solis RN)1702 (Given - Provider: Yasmeen Solis RN)2037 (Given - Provider: Betty Montemayor RN) 0842 (Given - Provider: Regi Oro, BECKI)1215 (Given - Provider: Regi Oro, BECKI) sodium chloride 0.9% flush 0.5-20 mL 0.5-20 mL, intra-catheter, Every 8 hours scheduled, First dose on Sat11/20/19 at 1400, Flush volume based on line type and size. 0831 (Given - Provider: Rosy Hidalgo RN)1640 (Given - Provider: Rosy Hidalgo RN) 0232 (Not Given - Provider: Narcisa Rivero RN - Reason: Other)0552 (Not Given - Provider: Narcisa Rivero RN - Reason: Other)1120 (Given - Provider: Yasmeen Solis RN)1310 (Given - Provider: Yasmeen Solis RN)2318 (Lab Draw - Provider: Betty Montemayor RN) 0600 (Due) sulfamethoxazole-trimeth oprim (BACTRIM DS) 800-160 mg per tablet 160 mg of trimethoprim 160 mg of trimethoprim, oral, User Specified (2 times per day on Sat), First dose on Sat11/23/19 at 0900, Indications: Pneumocystis/Toxoplasmos is Prophylaxis 827 (Given - Provider: Rosy Hidalgo RN)2106 (Given - Provider: Narcisa Rivero RN) tacrolimus (PROGRAF) capsule 0.5 mg 0.5 mg, oral, Every other day, First dose on Sat11/20/19 at 1500, Avoid grapefruit juice 08 (Given - Provider: Rosy Hidalgo RN) 827 (Given - Provider: Regi Oro RN) tiotropium (SPIRIVA) 18 mcg per inhalation capsule 1 capsule 1 capsule, inhalation, Daily, First dose (after last modification) on Sat11/22/19 at 0900, To ensure drug delivery, the contents of each capsule should be inhaled twice. Inhalation only. 0830 (Given - Provider: Rosy Hidalgo RN) 0836 (Given - Provider: Yasmeen Solis RN) 0953 (Given - Provider: Regi Oro RN) vancomycin 1500 mg/515 mL in sodium chloride 0.9% (premix) 1,500 mg (CANCELED) 1,500 mg, intravenous, Administer over 90 Minutes, Every 24 hours, First dose on Sat11/25/19 at 1200, Indications: Pneumonia, Aspiration 1150 (New Bag - Provider: Rosy Hidalgo RN)1640 (Stopped - Provider: Rosy Hidalgo RN) 1310 (Not Given - Provider: Yasmeen Solis RN - Reason: Other) voriCONAZOLE (VFEND) tablet 200 mg 200 mg, oral, 2 times daily, First dose on Sat11/20/19 at 2100, Indications: Prophylaxis, Medical 08 (Given - Provider: Rosy Hidalgo RN)2106 (Given - Provider: Narcisa Rivero, BECKI) 0833 (Given - Provider: Yasmeen Solis RN)2035 (Given - Provider: Betty Montemayor RN) 0828 (Given - Provider: Regi Oro, BECKI) PRN Medication Order 11/26/2019 11/27/2019 11/28/2019 acetaminophen (TYLENOL) tablet 650 mg 650 mg, oral, Every 4 hours PRN, blood product administration, Starting on Sat11/20/19 at 1216, Indications: Prophylaxis Transfusion Reaction acetaminophen (TYLENOL) tablet 650 mg 650 mg, oral, Every 6 hours PRN, fever, Starting on Sat11/20/19 at 1216, Indications: Fever albuterol 2.5 mg /3 mL (0.083 %) nebulizer solution 2.5 mg 2.5 mg, nebulization, Once as needed, other, For administration with Procedure: Spirometry with Bronchodilator, Starting on Sat11/23/19 at 1024, For 1 dose, For administration with Procedure: Spirometry with Bronchodilator. Albuterol may not be given if the FVC and FEV1 percent predicted are equal to or greater than 80%. albuterol 2.5 mg/0.5 mL nebulizer solution 2.5 mg 2.5 mg, nebulization, Every 4 hours PRN (staff respiratory therapist), wheezing, Starting on Sat11/22/19 at 1534 2153 (Given - Provider: Abby Najera RRT) 0700 (Not Given - Provider: Yasmeen Solis, BECKI - Reason: Order parameters not met)2341 (Given - Provider: Eric Hunter, BRANDEN) 1004 (Given - Provider: Tasneem Bronson RRT) aluminum & magnesium cgzphdusa-vbecbuxztmv-tgg henhydramine-lidocaine (MAGIC MOUTHWASH) suspension 1-1-1 15 mL, swish & swallow, 4 times daily PRN, other, mucositis, Starting on Sat11/20/19 at 1216, Indications: Chemotherapy-Induced Mucositis bacitracin-polymyxin B (POLYSPORIN) 500-10,000 unit/gram ointment tube 1 application 1 application (deactivated), topical, Every 4 hours PRN, wound care, Starting on Sat11/20/19 at 1216, Apply to affected area: other, Indications: Minor Bacterial Skin Infections camphor-menthol (SARNA) 0.5-0.5 % lotion topical, Every 2 hours PRN, itching, Starting on Sat11/20/19 at 1216, Apply to affected area: other, Indications: Pruritus of Skin dextrose (D10W) 10% bolus 250 mL(Linked Group 1) 250 mL, intravenous, at 1,000 mL/hr, Administer over 15 Minutes, Every 15 min PRN, blood glucose less than 70 mg/dL and UNABLE to swallow/take PO glucose/juice., Starting on 11/21/19 at 0913, After treatment for hypoglycemia, recheck BG followed by treatment every 15 minutes until the BG is greater than 100 mg/dL. Then check BG 1 hour post treatment. If BG is less than 100 mg/dL, repeat Q15 minute BG checks and treatment. Call MD for each episode of hypoglycemia., Indications: hypoglycemic disorder dextrose (D10W) 10% bolus 250 mL(Linked Group 2) 250 mL, intravenous, at 1,000 mL/hr, Administer over 15 Minutes, Every 15 min PRN, blood glucose less than 70 mg/dL and UNABLE to swallow/take PO glucose/juice., Starting on 11/22/19 at 0838, After treatment for hypoglycemia, recheck BG followed [...] glucose less than 70 mg/dL, Starting on 11/21/19 at 0913, If patient is alert and able to [...] Call MD for each episode of hypoglycemia. DRYWALL FINISHER FOREMAN STATES GLUTOSE-15 CONTAINS GLUCOSE 40% W/W (50% W/V), Indications: hypoglycemic disorder dextrose (GLUTOSE) 40 % gel 15 g(Linked Group 2) 15 g, oral, Every 15 min PRN, low blood sugar, blood glucose less than 70 mg/dL, Starting on 11/22/19 at 0838, If patient is alert and able to [...] Call MD for each episode of hypoglycemia. DRYWALL FINISHER FOREMAN STATES GLUTOSE-15 CONTAINS GLUCOSE 40% W/W (50% W/V), Indications: hypoglycemic disorder diphenhydrAMINE (BENADRYL) tab/cap 25 mg 25 mg, oral, Nightly PRN, sleep, Starting on Sat11/22/19 at 0041 glucagon injection 1 mg 1 mg, intramuscular, Administer over 1 Minutes, Every 30 min PRN, low blood sugar, blood glucose less than 70 mg/dL AND no IV access AND unable to take PO glucose/jiuce., Starting on 11/21/19 at 0913, After Glucagon is administered, position patient on [...] MD for each episode of hypoglycemia., Indications: Hypoglycemia heparin 10 unit/mL flush 20-50 Units 20-50 Units (2-5 mL), intra-catheter, As needed, line care, with each use, Starting on Sat11/20/19 at 1216, Do not use with Groshong catheter. Flush volume based on line type, size, and protocol., Indications: Maintain Patency of Indwelling Vascular Catheter insulin lispro (HumaLOG) injection 6 Units 6 Units, subcutaneous, As needed, high blood sugar, with snacks, Starting on Sat11/25/19 at 1639 2108 (Given - Provider: Narcisa Rivero RN) loperamide (IMODIUM) capsule 2 mg 2 mg, oral, Every 1 hour PRN, diarrhea, after each liquid stool (ensure that at least one C. diff assay is negative prior to initiating), Starting on Sat11/20/19 at 1216, Total loperamide dose should not exceed 16 mg in 24 hours., Indications: diarrhea magnesium sulfate 4 g/100 mL in water (premix) 4 g 4 g, intravenous, Administer over 90 Minutes, Every 4 hours PRN, magnesium replacement, Starting on Sat11/20/19 at 1218, For magnesium level of 1.2-1.5 mg/dL, Indications: hypomagnesemia magnesium sulfate 6 g in sodium chloride 0.9% 250 mL IVPB 6 g, intravenous, at 131 mL/hr, Administer over 120 Minutes, Every 4 hours PRN, magnesium replacement, Starting on Sat11/20/19 at 1218, For magnesium level less than 1.2 mg/dL and call/notify provider., Indications: hypomagnesemia oxyCODONE (ROXICODONE) tablet 5 mg 5 mg, oral, 4 times daily PRN, 1st line for pain, Starting on Sat11/20/19 at 1936, Indications: Pain 1017 (Given - Provider: Rosy Hidalgo, BECKI)1957 (Given - Provider: Sg Leal, BECKI) 0633 (Given - Provider: Narcisa Rivero, BECKI)1706 (Given - Provider: Yasmeen Solis, RN) 0504 (Given - Provider: Betty Montemayor, BECKI) polyvinyl alcohol (LIQUIFILM TEARS) 1.4 % ophthalmic solution 2 drop 2 drop, each eye, Every 4 hours PRN, dry eyes, Starting on Sat11/20/19 at 1216, Indications: Dry Eye potassium chloride 40 mEq/520 mL in sodium chloride 0.9% (premix) 40 mEq 40 mEq, intravenous, at 130 mL/hr, Administer over 4 Hours, Every 4 hours PRN, potassium replacement, Starting on Sat11/20/19 at 1218, 40 mEq X1 dose for potassium less [...] 4 hours PRN, potassium replacement, Starting on Sat11/20/19 at 1218, For potassium 3.2-3.5 mmol/L, give 40 mEq X1 dose (may use IV if oral not tolerated). Do not crush, chew, cut, dissolve, open or otherwise manipulate tablet/capsule., Indications: hypokalemia pramoxine-zinc oxide (TRONOLANE) 1-5 % rectal cream rectal, 3 times daily PRN, hemorrhoids, Starting on Sat11/20/19 at 1216, Apply to affected area: other, Indications: Hemorrhoids sodium chloride (OCEAN) 0.65 % nasal spray 2 spray 2 spray, each nostril, Every 1 hour PRN, other, dryness, Starting on Sat11/20/19 at 1216, Indications: Dry Nose sodium chloride 0.9% flush 0.5-20 mL 0.5-20 mL, intra-catheter, As needed, line care, Starting on Sat11/20/19 at 1218, Flush volume based on line type and size. Flush before and after each use. sodium chloride 0.9% infusion 30 mL/hr, intravenous, Continuous PRN, KVO for medication administrations, Starting on Sat11/20/19 at 1216 sodium chloride 0.9% IVPB 0-250 mL 0-250 mL, intravenous, As needed, flush tubing for blood product administration, Starting on Sat11/20/19 at 1216, Prime blood tubing and administer amount needed to clear line (usually 50-100 mL) after transfusion complete. white petrolatum-mineral oil (EUCERIN) cream topical, Every 2 hours PRN, dry skin, Starting on Sat11/20/19 at 1216, Apply to affected area: other, Indications: Dry Skin Linked Groups Order Group 1: dextrose (GLUTOSE) 40 % gel 15 gJump to med 15 g, oral, Every 15 min PRN, low blood sugar, blood glucose less than 70 mg/dL, Starting on Sat11/21/19 at 0913, If patient is alert and able to [...] Call MD for each episode of hypoglycemia. DRYWALL FINISHER FOREMAN STATES GLUTOSE-15 CONTAINS GLUCOSE 40% W/W (50% W/V), Indications: hypoglycemic disorder Or dextrose (D10W) 10% bolus 250 mLJump to med 250 mL, intravenous, at 1,000 mL/hr, Administer over 15 Minutes, Every 15 min PRN, blood glucose less than 70 mg/dL and UNABLE to swallow/take PO glucose/juice., Starting on 11/21/19 at 0913, After treatment for hypoglycemia, recheck BG followed by treatment every 15 minutes until the BG is greater than 100 mg/dL. Then check BG 1 hour post treatment. If BG is less than 100 mg/dL, repeat Q15 minute BG checks and treatment. Call MD for each episode of hypoglycemia., Indications: hypoglycemic disorder Group 2: dextrose (GLUTOSE) 40 % gel 15 gJump to med 15 g, oral, Every 15 min PRN, low blood sugar, blood glucose less than 70 mg/dL, Starting on 11/22/19 at 0838, If patient is alert and able to [...] Call MD for each episode of hypoglycemia. DRYWALL FINISHER FOREMAN STATES GLUTOSE-15 CONTAINS GLUCOSE 40% W/W (50% W/V), Indications: hypoglycemic disorder Or dextrose (D10W) 10% bolus 250 mLJump to med 250 mL, intravenous, at 1,000 mL/hr, Administer over 15 Minutes, Every 15 min PRN, blood glucose less than 70 mg/dL and UNABLE to swallow/take PO glucose/juice., Starting on 11/22/19 at 0838, After treatment for hypoglycemia, recheck BG followed [...] First Ordered Date [id number] ruxolitinib (20 18-05-175/INCB [id number]) tablet 5 mg 1 11/27/2019 albuterol 2.5 mg /3 mL (0.08 3 %) nebulizer solution 2.5 mg 2 11/23/2019 11/20/2019 insulin glargine (LANTUS) in jection 45 Units 1 11/23/2019 insulin lispro (HumaLOG) inj ection 15 Units 1 11/23/2019 dextrose (D10W) 10% bolus 250 mL 3 11/22/19 20 11/20/2019 dextrose (GLUTOSE) 40 % gel 15 g 3 11/22/19 20 11/20/2019 glucagon injection 1 mg 2 11/21/201901/2020 insulin lispro (HumaLOG) inj ection 10 Units 1 11/21/2019 acetaminophen (TYLENOL) tablet 650 mg 2 01/2020 albuterol HFA (PROVENTIL HFA ,VENTOLIN HFA,PROAIR HFA) 90 mcg/actuation inhaler 2 puff 1 11/20/2019 aluminum & magnesium oynxwusyy-mpmygucuqhw-piaqnaivpnvnwuk-lido aida (MAGIC MOUTHWASH) suspension 1-1-1 1 11/20/2019 azithromycin (ZITHROMAX) tablet 500 mg 1 bacitracin-polymyxin B (POLY SPORIN) 500-10,000 unit/gram ointment tube 1 application 1 11/20/2019 camphor-menthol (SARNA) 0.5-0.5 % lotion 1 11/20/2019 heparin 10 unit/mL flush 20-50 Units 1 01/2020 insulin lispro (HumaLOG) inj ection 1-3 Units 1 11/20/2019 insulin lispro (HumaLOG) inj ection 1-5 Units 1 11/20/2019 loperamide (IMODIUM) capsule 2 mg 1 020 magnesium sulfate 4 g/100 mL in water (premix) 4 g 1 11/20/2019 magnesium sulfate 6 g in sod ium chloride 0.9% 250 mL IVPB 1 11/20/2019 polyvinyl alcohol (LIQUIFILM TEARS) 1.4 % ophthalmic solution 2 drop 1 11/20/2019 potassium chloride 40 mEq/52 0 mL in sodium chloride 0.9% (premix) 40 mEq 1 11/20/2019 potassium chloride ER (KLOR- CON) extended release tablet 40 mEq 1 11/20/2019 pramoxine-zinc oxide (TRONOL ANE) 1-5 % rectal cream 1 11/20/2019 sodium chloride (OCEAN) 0.65 % nasal spray 2 spray 1 11/20/2019 sodium chloride 0.9% IVPB 0-250 mL 1 2019 tiotropium (SPIRIVA) 18 mcg per inhalation capsule 1 capsule 1 11/20/2019 white petrolatum-mineral oil (EUCERIN) cream 1 11/20/2019 Lab Orders Without Results Count Last Ordered D ate First Ordered Date POCT GLUCOSE DEVICE 36 11/27/2019 11/20/19 20 PHOSPHORUS 1 11/20/2019 Nursing Count Last Ordered Date First Orde red Date DISCHARGE CALL PROVIDER 5 11/28/2019 ONCBCN CLINICAL PHARMACIST REVIEW 1 020 ONCBCN PROVIDER COMMUNICATION 10 1 11/27/19 20 ONCBCN STUDY COMMUNICATION 4 1 11/27/2019 ONCBCN STUDY COMMUNICATION [id number] 1 020 ONCBCN TREATMENT PARAMETERS 1 11/27/2019 MEASURE HEIGHT AND LENGTH 1 11/20/2019 WEIGH PATIENT 1 11/20/2019 Consult Count Last Ordered Date First Orde red Date CONSULT TO ENDOCRINOLOGY DIABETES 1 020 IP CONSULT TO NUTRITION SERVICES 1 11/20/19 20 Isolation Count Last Ordered Date First Orde red Date INITIATE DROPLET ISOLATION 1 11/20/2019 CORE MEASURES Count Last Ordered Date First Ord ered Date REASON FOR NO VTE PROPHYLAXIS AT ADMISSION 1 11/20/2019 documented in this encounter 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 Care Teams Pigment Mixer Relationship Specialty Start Date End Date Kirt Lindsay DO PCP - General 05/02/17 11/22/20 Josué Del Valle MD PhD Medical Oncologist/Veterans' Counselor Medical Oncology 08/26/19 documented as of this encounter
--- OUTSIDE RECORDS SUMMARY | 2024-11-22 11:04 | XMS_ITS | Encounter Summary ---
Author Organization [facility] Address [address] [place] [address] Phone Care Team Providers Care Web Content Coordinator Name Role Phone Kirt Lindsay DO Primary Care Provider [phone] Josué Del Valle MD PhD Unavailable [phone] Encounter Details Date Type Department Care Team (Late st Contact Info) Description 08/28/2019 Telephone [facility] Bone Marrow Transplant [address] [facility] Advanced Medicine 7th Floor, [place] [address] Mellisa Rubalcava RN Social History Tobacco Use Types Packs/Day Years Used Date Smoking Tobacco: Every Day Smokeless Tobacco: Never Comments:Pt not interested i n smoking cessation program Sex and Gender Information Value Date Recorded Sex Assigned at Not on file Legal 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 yes Is the patient on a research study with a research oral medication? no documented in this encounter Plan of Treatment Not on file documented as of this encounter Visit Diagnoses Not on filedocumented in this encounter 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 Care Teams Web Content Coordinator Relationship Specialty Start Date End Date Kirt Lindsay DO PCP - General 05/02/17 11/22/20 Josué Del Valle MD PhD Medical Oncologist/General Maintenance Technician Medical Oncology 08/26/19 documented as of this encounter
--- OUTSIDE RECORDS SUMMARY | 2024-11-22 11:04 | XMS_ITS | Encounter Summary ---
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 Gender Identity Not on file Sexual Orientation Not on file documented as of this encounter Plan of Treatment Not on file documented as of this encounter Visit Diagnoses Not on filedocumented in this encounter 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 Care Teams Cake Wrapper Relationship Specialty Start Date End Date Kirt Lindsay DO PCP - General 05/02/17 11/22/20 Josué Del Valle MD PhD Medical Oncologist/Railroad Crane Operator Medical Oncology 08/26/19 documented as of this encounter
--- OUTSIDE RECORDS SUMMARY | 2024-11-22 11:04 | XMS_ITS | Encounter Summary ---
Author Organization [facility] Address [address] [place] [address] Phone Care Team Providers Care Vp Mobile Products Name Role Phone Kirt Lindsay DO Primary Care Provider [phone] Josué Del Valle MD PhD Unavailable [phone] Encounter Details Date Type Department Care Team (Late st Contact Info) Description 10/29/2019 Orders Only [facility] Bone Marrow Transplant [address] [facility] Advanced Medicine 7th Floor, [place] [address] Narcisa Kilgore NP [address] DIV IM BONE MARROW TRANSPLANT, [address] [place] [address] 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) Social History Tobacco Use Types Packs/Day Years Used Date Smoking Tobacco: Every Day Smokeless Tobacco: Never Comments:Pt not interested i n smoking cessation program Sex and Gender Information Value Date Recorded Sex Assigned at Not on file Legal 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 Gender Identity Not on file Sexual Orientation Not on file documented as of this encounter Plan of Treatment Not on file documented as of this encounter Results * (ABNORMAL) CBC with auto differential (11/20/2019 9:45 AM ZIPPER TRIMMER) WBC 14.1(H) 3.8 - 9.8 K/cumm [facility] Comment:Testing performed by : [facility], [address] [place], [place] [id number] Hgb 14.2 13.8 - 17.2 g/dL [facility] Comment:Testing performed by : [facility], [address] [place], [place] [id number] Hct 42.2 40.7 - 50.3 % [facility] Comment:Testing performed by : [place] [id number] Plt 291 140 - 440 K/cumm [facility] Comment:Testing performed by : [place] [id number] MPV 9.2 6.8 - 10.4 fL [facility] Comment:Testing performed by : [place] [id number] RBC 4.17(L) 4.50 - 5.70 M/cumm [facility] Comment:Testing performed by : [place] [id number] MCV 101.3(H) 80.0 - 97.6 fL [facility] Comment:Testing performed by : [place] [id number] MCH 34.1(H) 26.7 - 33.7 pg [facility] Comment:Testing performed by : [place] [id number] MCHC 33.6 32.7 - 35.5 g/dL [facility] Comment:Testing performed by : [place] [id number] RDW CV 14.5 11.8 - 14.6 % [facility] Comment:Testing performed by : [address] [id number] NRBC abs 0.52(H) 0.00 - 0.01 K/cumm [facility] Comment:Testing performed by : [facility], [address] [place] [phone] Blood specimen (specimen) 11/20/2019 9:45 AM ZIPPER TRIMMER 11/20/2019 9:48 AM ZIPPER TRIMMER us Narcisa Kilgore NP LAB BLOOD ORDERABLES Pilar l Result Performing Organization Address [facility] Co de Phone Number [facility] Department [place] [address] * Cytomegalovirus (CMV) DNA PCR, quantitative Blood (11/20/2019 9:44 AM ZIPPER TRIMMER) CMV DNA Not Detected [facility] Comment: Interpretive Data: The quantifiable range of this assay is 137 IUnits/mL to 9,100,000 IUnits/mL (2.14 log IUnits/mL to 6.96 log IUnits/mL). Testing was performed by the [employer] AmpliPrep/MICHEL TaqMan CMV Test ([employer] Testing performed at [facility] Current interpretive data was last revised on 17. Blood specimen (specimen) 11/20/2019 9:44 AM ZIPPER TRIMMER 11/20/2019 12:44 PM ZIPPER TRIMMER Narcisa Kilgore NP LAB MICROBIOLOGY - GENERA L ORDERABLES Final Result Performing Organization Address [facility] de Phone Number [facility] Department [place] [address] * Uric acid (11/20/2019 9:29 AM ZIPPER TRIMMER) Pathologist [facility] Uric acid 5.2 3.0 - 8.0 mg/dL [facility] Blood specimen (specimen) 11/20/2019 9:29 AM ZIPPER TRIMMER 11/20/2019 10:09 AM ZIPPER TRIMMER Narcisa Kilgore NP LAB BLOOD ORDERABLES Pilar l Result Performing Organization Address [facility] Co de Phone Number [facility] [place] [address] * Tacrolimus level, random (11/20/2019 9:29 AM ZIPPER TRIMMER) Tacrolimus, random <1.0 ng/mL [facility] Comment: Undetectable. ??Please verify that the correct immunosuppressant test was requested. Interpretive Data Testing performed by liquid chromatography-tandem mass spectrometry. ??Therapeutic concentrations vary depending on type of transplanted organ and time elapsed since transplant. ??Typical trough concentrations range from 5-15 ng/mL. ??This test was developed and its performance characteristics determined by the [facility] consistent with CLIA requirements. ??This test has not been cleared or approved by the [place] Food and Drug administration. ??Current interpretive data last reviewed 2019. Blood specimen (specimen) 11/20/2019 9:29 AM ZIPPER TRIMMER 11/20/2019 10:05 AM ZIPPER TRIMMER Narcisa Kilgore NUCLEAR MEDICINE SPECIALIST LAB BLOOD ORDERABLES Pilar l Result Performing Organization Address [facility] Co de Phone Number [facility] [place] [address] * Magnesium (11/20/2019 9:29 AM ZIPPER TRIMMER) Pathologist [facility] Magnesium 1.7 1.4 - 2.5 mg/dL [facility] Blood specimen (specimen) 11/20/2019 9:29 AM ZIPPER TRIMMER 11/20/2019 10:09 AM ZIPPER TRIMMER Narcisa Kilgore NUCLEAR MEDICINE SPECIALIST LAB BLOOD ORDERABLES Pilar l Result Performing Organization Address [facility] [place] [address] * (ABNORMAL) Lactate dehydrogenase (LD) (11/20/2019 9:29 AM ZIPPER TRIMMER) Pathologist [facility] Lactate dehydrogenase (LDH) 428(H) 100 - 250 Units/L [facility] Blood specimen (specimen) 11/20/2019 9:29 AM ZIPPER TRIMMER 11/20/2019 10:09 AM ZIPPER TRIMMER Narcisa Kilgore NUCLEAR MEDICINE SPECIALIST LAB BLOOD ORDERABLES Pilar pawel Result [facility] Department [place] [address] documented in this encounter Visit Diagnoses Diagnosis AML (acute myeloid leukemia) in remission (HCC)- Primary documented in this encounter 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 Care Teams Vp Mobile Products Relationship Specialty Start Date End Date Kirt iLndsay DO PCP - General 05/02/17 11/22/20 Josué Del Valle MD PhD Medical Oncologist/Baler Medical Oncology 08/26/19 documented as of this encounter
--- OUTSIDE RECORDS SUMMARY | 2024-11-22 11:04 | XMS_ITS | Encounter Summary ---
Author Organization [facility] Healthcare Address [address] [place] [address] Care Team Providers Care Car Body Designer Name Role Phone Kirt Lindsay DO Primary Care Provider [phone]- [phone] Josué Del Valle MD PhD Unavailable [phone] Encounter Details Date Type Department Care Team (Late st Contact Info) Description 11/26/2019 Orders Only [address] [address] Josué Del Valle MD PhD [address] DIV IM BONE MARROW TRANSPLANT, [address] [place], [place] [id number] AML (acute myeloid leukemia) in remission ([facility]) (Primary Dx) Social History Tobacco Use Types Packs/Day Years Used Date Smoking Tobacco: Every Day Smokeless Tobacco: Never Comments:Pt not interested i n smoking cessation program Sex and Gender Information Value Date Recorded Sex Assigned at Not on file Legal Sex Male 10:48 AM C2 TACTICAL 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 Gender Identity Not on file Sexual Orientation Not on file documented as of this encounter Plan of Treatment Not on file documented as of this encounter Results * (ABNORMAL) CBC with auto differential (12/04/2019 10:03 AM C2 TACTICAL ANALYSIS TECHNICIAN) WBC 10.7(H) 3.8 - 9.8 K/cumm [facility] Comment:Testing performed by : [facility], [address] [place], [place] [id number] Hgb 12.4(L) 13.8 - 17.2 g/dL [facility] Comment:Testing performed by : [facility], [address] [place], [place] [id number] Hct 38.1(L) 40.7 - 50.3 % [facility] Comment:Testing performed by : [facility], [address] [place], [place] [phone] Plt 235 140 - 440 K/cumm [facility] Comment:Testing performed by : [place] [address] MPV 8.4 6.8 - 10.4 fL [facility] Comment:Testing performed by : [place] [address] RBC 3.61(L) 4.50 - 5.70 M/cumm [facility] Comment:Testing performed by : [facility], [address] [place], [place] [phone] MCV 105.5(H) 80.0 - 97.6 fL [facility] Comment:Testing performed by : [place] [id number] MCH 34.4(H) 26.7 - 33.7 pg [facility] Comment:Testing performed by : [place] [id number] MCHC 32.6(L) 32.7 - 35.5 g/dL [facility] Comment:Testing performed by : [place] [id number] RDW CV 15.4(H) 11.8 - 14.6 % [facility] Comment:Testing performed by : [place] [id number] NRBC abs 0.03(H) 0.00 - 0.01 K/cumm [facility] Comment:Testing performed by : [facility], [address] [place] [id number] Blood specimen (specimen) 12/04/2019 10:03 AM C2 TACTICAL ANALYSIS TECHNICIAN 12/04/2019 10:04 AM C2 TACTICAL ANALYSIS TECHNICIAN Josué Del Valle MD PhD LAB BLOOD ORDERABLES Fin al Result Performing Organization Address [facility] de Phone Number [facility] Department [place] [address] * Cytomegalovirus (CMV) DNA PCR, quantitative Blood (12/04/2019 9:50 AM C2 TACTICAL ANALYSIS TECHNICIAN) Pathologist [facility] CMV DNA Not Detected [facility] Comment: Interpretive Data: The quantifiable range of this assay is 137 IUnits/mL to 9,100,000 IUnits/mL (2.14 log IUnits/mL to 6.96 log IUnits/mL). Testing was performed by the [employer] AmpliPrep/MICHEL TaqMan CMV Test ([employer] Testing performed at [facility] Current interpretive data was last revised on 17. Blood specimen (specimen) 12/04/2019 9:50 AM C2 TACTICAL ANALYSIS TECHNICIAN 12/04/2019 12:44 PM C2 TACTICAL ANALYSIS TECHNICIAN Josué Del Valle MD PhD LAB MICROBIOLOGY - GENER AL ORDERABLES Final Result Performing Organization Address [facility] de Phone Number [facility] Department [place] [address] * Uric acid (12/04/2019 9:49 AM C2 TACTICAL ANALYSIS TECHNICIAN) Pathologist [facility] Uric acid 3.1 3.0 - 8.0 mg/dL [facility] Blood specimen (specimen) 12/04/2019 9:49 AM C2 TACTICAL ANALYSIS TECHNICIAN 12/04/2019 10:31 AM C2 TACTICAL ANALYSIS TECHNICIAN Josué Del Valle MD PhD LAB BLOOD ORDERABLES Fin al Result Performing Organization Address [facility] de Phone Number [facility] Department [place] [address] * Tacrolimus level, random (12/04/2019 9:49 AM C2 TACTICAL ANALYSIS TECHNICIAN) Tacrolimus, random 3.9 ng/mL [facility] Comment: Interpretive Data Testing performed by liquid chromatography-tandem mass spectrometry. ??Therapeutic concentrations vary depending on type of transplanted organ and time elapsed since transplant. ??Typical trough concentrations range from 5-15 ng/mL. ??This test was developed and its performance characteristics determined by the [facility] consistent with CLIA requirements. ??This test has not been cleared or approved by the [place] Food and Drug administration. ??Current interpretive data last reviewed 2019. Blood specimen (specimen) 12/04/2019 9:49 AM C2 TACTICAL ANALYSIS TECHNICIAN 12/04/2019 10:13 AM C2 TACTICAL ANALYSIS TECHNICIAN Josué Del Valle MD PhD LAB BLOOD ORDERABLES Fin al Result Performing Organization Address City/[facility]/ZIP Co de Phone Number [facility] Department [place] [address] * Magnesium (12/04/2019 9:49 AM C2 TACTICAL ANALYSIS TECHNICIAN) [facility] Magnesium 1.4 1.4 - 2.5 mg/dL [facility] Blood specimen (specimen) 12/04/2019 9:49 AM C2 TACTICAL ANALYSIS TECHNICIAN 12/04/2019 10:31 AM C2 TACTICAL ANALYSIS TECHNICIAN Josué Del Valle MD PhD LAB BLOOD ORDERABLES Fin al Result Performing Organization Address City/[facility]/ZIP [place] de Phone Number [facility] [place] [address] * (ABNORMAL) Lactate dehydrogenase (LD) (12/04/2019 9:49 AM C2 TACTICAL ANALYSIS TECHNICIAN) Pathologist [facility] Lactate dehydrogenase (LDH) 512(H) 100 - 250 Units/L [facility] Blood specimen (specimen) 12/04/2019 9:49 AM C2 TACTICAL ANALYSIS TECHNICIAN 12/04/2019 10:31 AM C2 TACTICAL ANALYSIS TECHNICIAN us Josué Del Valle MD PhD LAB BLOOD ORDERABLES Fin al Result [facility] Department [place] [address] * (ABNORMAL) Comprehensive metabolic panel (12/04/2019 9:49 AM C2 TACTICAL ANALYSIS TECHNICIAN) Sodium 137 135 - 145 mmol/L [facility] Potassium, pl 4.6 3.3 - 4.9 mmol/L [facility] Chloride 98 97 - 110 mmol/L [facility] CO2 33(H) 22 - 32 mmol/L [facility] Anion gap 6 2 - 15 mmol/L [facility] BUN 13 8 - 25 mg/dL [facility] Creatinine 0.91 0.80 - 1.30 mg/dL [facility] Glucose 426(H) 70 - 199 mg/dL [facility] [...] 2017. Calcium 9.7 8.5 - 10.3 mg/dL [facility] Bilirubin, total 0.3 0.1 - 1.2 mg/dL [facility] Protein, pl 6.8 6.5 - 8.5 g/dL [facility] Albumin 3.6 3.5 - 5.0 g/dL [facility] Alk phos 183(H) 40 - 130 Units/L [facility] ALT 67(H) 7 - 55 Units/L [facility] AST 49 10 - 50 Units/L [facility] Blood specimen (specimen) 12/04/2019 9:49 AM C2 TACTICAL ANALYSIS TECHNICIAN 12/04/2019 10:31 AM C2 TACTICAL ANALYSIS TECHNICIAN us Josué Del Valle MD PhD LAB BLOOD ORDERABLES Fin al Result [facility] Department [place] [address] documented in this encounter Visit Diagnoses Diagnosis AML (acute myeloid leukemia) in remission (HCC)- Primary documented in this encounter 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
--- OUTSIDE RECORDS SUMMARY | 2024-11-22 11:04 | XMS_ITS | Encounter Summary ---
Author Organization [facility] Address [address] [place] [address] Care Team Providers Care Can Filler Name Role Phone Kirt Lindsay DO Primary Care Provider [phone]- [phone] Josué Del Valle MD PhD Unavailable [phone] Encounter Details Date Type Department Care Team (Late st Contact Info) Description 10/16/2019 Orders Only [facility] Cardiology [address] [place] [address] Eligio Vinson MD [address] [facility] [address] [place] [address] Social History Tobacco Use Types Packs/Day Years Used Date Smoking Tobacco: Every Day Smokeless Tobacco: Never Comments:Pt not interested i n smoking cessation program Sex and Gender Information Value Date Recorded Sex Assigned at Not on file Legal 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 Gender Identity Not on file Sexual Orientation Not on file documented as of this encounter Plan of Treatment Not on file documented as of this encounter Procedures Procedure Name Priority Date/Time Associated Diagnosis Comments CARDIOLOGY DOCUMENT SCAN Routine 10/16/2019 documented in this encounter Results * SCAN - CARDIOLOGY (10/16/2019) Anatomical Region Laterality Modality Other us Eligio Vinson MD CV CARDIAC SERVICES PROC EDURES Final Result documented in this encounter Visit Diagnoses Not on filedocumented in this encounter 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
--- OUTSIDE RECORDS SUMMARY | 2024-11-22 11:04 | XMS_ITS | Encounter Summary ---
Author Organization [facility] Address [address] [place] [address] Phone Care Team Providers Care Sewer Tapper Name Role Phone Kirt Lindsay DO Primary Care Provider [phone]- [phone] Josué Del Valle MD PhD Unavailable [phone] Encounter Details Date Type Department Care Team (Late st Contact Info) Description 11/27/2019 Orders Only [facility]row Transplant [address] Advanced Medicine 7th Floor, [place] [address] Josué Del Valle MD PhD [address] DIV IM BONE MARROW TRANSPLANT, [address] [place] [address] Emzur-yawrec-gczt disease (CMS/HCC) Social History Tobacco Use Types Packs/Day Years Used Date Smoking Tobacco: Every Day Smokeless Tobacco: Never Comments:Pt not interested i n smoking cessation program Sex and Gender Information Value Date Recorded Sex Assigned at Not on file Legal 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 Male 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 OPTOMETRIC 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 Gender Identity Not on file Sexual Orientation Not on file documented as of this encounter Plan of Treatment Not on file documented as of this encounter Visit Diagnoses Diagnosis Ngxsn-[id number]-[id number] disease (HCC) documented in this encounter 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 Care Teams Sewer Tapper Relationship Specialty Start Date End Date Kirt Lindsay DO PCP - General 05/02/17 11/22/20 Josué Del Valle MD PhD Medical Oncologist/Life Insurance Sales Medical Oncology 08/26/19 documented as of this encounter
--- OUTSIDE RECORDS SUMMARY | 2024-11-22 11:04 | XMS_ITS | Encounter Summary ---
Author Organization [facility] Healthcare Address [address] [place] [address] Care Team Providers Care Paper Spooler Name Role Phone Kirt Lindsay DO Primary Care Provider [phone]- [phone] Josué Del Valle MD PhD Unavailable [phone] Encounter Details Date Type Department Care Team (Late st Contact Info) Description 11/27/2019 Orders Only [facility] [address] [place] [address] Martín [place], [facility] Social History Tobacco Use Types Packs/Day Years Used Date Smoking Tobacco: Every Day Smokeless Tobacco: Never Comments:Pt not interested i n smoking cessation program Sex and Gender Information Value Date Recorded Sex Assigned at Not on file Legal 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 Gender Identity Not on file Sexual Orientation Not on file documented as of this encounter Plan of Treatment Not on file documented as of this encounter Visit Diagnoses Not on filedocumented in this encounter 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 Care Teams Paper Spooler Relationship Specialty Start Date End Date Kirt Lindsay DO PCP - General 05/02/17 11/22/20 Josué Del Valle MD PhD Medical Oncologist/Health Information Coder Medical Oncology 08/26/19 documented as of this encounter
--- OUTSIDE RECORDS SUMMARY | 2024-11-22 11:04 | XMS_ITS | Encounter Summary ---
Author Organization [facility] Address [address] [place] [address] Phone Care Team Providers Care Dyer And Washer Name Role Phone Kirt Lindsay DO Primary Care Provider [phone]- [phone] Josué Del Valle MD PhD Unavailable [phone] Reason for Visit * Reason Onset Date Comments Hospital Follow Up 08/27/2019 Encounter Details Date Type Department Care Team (Late st Contact Info) Description 08/27/2019 Telephone [facility] Bone Marrow Transplant [address] [facility] Advanced Medicine 7th Floor, [place] [address] Michael Delong RN Hospital Follow Up Social History Tobacco Use Types Packs/Day Years Used Date Smoking Tobacco: Every Day Smokeless Tobacco: Never Comments:Pt not interested i n smoking cessation program Sex and Gender Information Value Date Recorded Sex Assigned at Not on file 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 documented in this encounter Plan of Treatment Not on file documented as of this encounter Visit Diagnoses Not on filedocumented in this encounter 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 Care Teams Dyer And Washer Relationship Specialty Start Date End Date Kirt Lindsay DO PCP - General 05/02/17 11/22/20 Josué Del Valle MD PhD Medical Oncologist/Product Manager Medical Oncology 08/26/19 documented as of this encounter
--- OUTSIDE RECORDS SUMMARY | 2024-11-22 11:04 | XMS_ITS | Encounter Summary ---
Author Organization [facility] Address [address] [facility] [place] [address] [place] [address] Phone Care Team Providers Care Power Plant Operator Apprentice Name Role Phone Kirt Lindsay DO Primary Care Provider [phone] Josué Del Valle MD PhD Unavailable [phone] Reason for Visit * Oncology (Routine) - Closed Specialty Diagnoses / Procedures Referred By Contac t Referred To Contact Lab Diagnoses #C,,, pt call Procedures ARM DRAW Josué Del Valle MD PhD Phone: tel: fax: [facility] [address] 7th [place] [address] [place] [address] Phone: tel: Referral ID Status Reason Start Date Expiration Date V isits Requested Visits Authorized [id number] Closed Specialty Services Required 11/20/2019 11/19/2020 24 24 Encounter Details Date Type Department Care Team (Late st Contact Info) Description 11/20/2019 9:30 AM MAINTENANCE ELECTRICIAN Lab [facility]cology [address] [facility] 7th [place] [address] [place] [address] 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); Tphhs-xneqlu-qmge disease (CMS/HCC); Type 2 diabetes mellitus with hyperosmolarity without coma, with long-term current use of insulin (CMS/HCC); Osteopenia, unspecified location Social History Tobacco Use Types Packs/Day Years Used Date Smoking Tobacco: Every Day Smokeless Tobacco: Never Comments:Pt not interested i n smoking cessation program Sex and Gender Information Value Date Recorded Sex Assigned at Not on file Legal Sex Male 10:48 AM MAINTENANCE ELECTRICIAN Gender Identity Not on file Sexual Orientation Not on file documented as of this encounter Plan of Treatment Not on file documented as of this encounter Procedures Procedure Name Priority Date/Time Associated Diagnosis Comments CBC WITH AUTO DIFFERENTIAL Routine 11/20/2019 9:45 AM MAINTENANCE ELECTRICIAN AML (acute myeloid leukemia) in remission ([facility]/HCC) MANUAL DIFFERENTIAL Routine 11/20/2019 9 :45 AM MAINTENANCE ELECTRICIAN AML (acute myeloid leukemia) in remission ([facility]) CYTOMEGALOVIRUS (CMV) DNA, QUANT GEN LAB Routine 11/20/2019 9:44 AM MAINTENANCE ELECTRICIAN AML (acute myeloid leukemia) in remission ([facility]) T-HELPER CELLS (CD4) COUNT Routine 11/20/2019 9:44 AM MAINTENANCE ELECTRICIAN Zsxrm-lrnavz-xprz disease ([facility]/HCC) TACROLIMUS LEVEL, RANDOM Routine 11/20/2019 9:29 AM MAINTENANCE ELECTRICIAN AML (acute myeloid leukemia) in remission ([facility]) VITAMIN D 25 HYDROXY Routine 11/20/2019 9:29 AM MAINTENANCE ELECTRICIAN Type 2 diabetes mellitus with hyperosmolarity without coma, with long-term current use of insulin ([facility]/HCC) Osteopenia, unspecified location URIC ACID Routine 11/20/2019 9:29 AM MAINTENANCE ELECTRICIAN AML (acute myeloid leukemia) in remission ([facility]/HCC) PHOSPHORUS Routine 11/20/2019 9:29 AM MAINTENANCE ELECTRICIAN MAGNESIUM Routine 11/20/2019 9:29 AM MAINTENANCE ELECTRICIAN AML (acute myeloid leukemia) in remission ([facility]/HCC) LACTATE DEHYDROGENASE Routine 11/20/2019 9:29 AM MAINTENANCE ELECTRICIAN AML (acute myeloid leukemia) in remission ([facility]/HCC) HEMOGLOBIN A1C Routine 11/20/2019 9:29 AM MAINTENANCE ELECTRICIAN Type 2 diabetes mellitus with hyperosmolarity without coma, with long-term current use of insulin ([facility]) Osteopenia, unspecified location IGG Routine 11/20/2019 9:29 AM MAINTENANCE ELECTRICIAN Bqrpc-sowpma-loxm disease ([facility]/HCC) COMPREHENSIVE METABOLIC PANEL Routine 11/20/2019 9:29 AM MAINTENANCE ELECTRICIAN Type 2 diabetes mellitus with hyperosmolarity without coma, with long-term current use of insulin ([facility]) Osteopenia, unspecified location documented in this encounter Results * (ABNORMAL) Manual Differential (11/20/2019 9:45 AM MAINTENANCE ELECTRICIAN) Differential Manual [facility] Cells Counted 100 [facility] Neutrophil abs 8.6(H) 1.7 - 6.5 K/cumm [facility] Imm gran abs 0.0 0.0 - 0.1 K/cumm [facility] Lymphocyte abs 5.1(H) 0.8 - 3.3 K/cumm [facility] Monocyte abs 0.3 0.2 - 0.8 K/cumm [facility] Eosinophil abs 0.1 0.0 - 0.5 K/cumm [facility] Neutrophil pct 61.0 % [facility] Lymphocyte pct 34.0 % [facility] Monocyte pct 2.0 % [facility] Eosinophil pct 1.0 % [facility] Band Neutrophil pct 0.0 0.0 - 6.0 % [facility] Metamyelocyte pct 0.0 0.0 - 0.0 % [facility] Myelocyte pct 0.0 0.0 - 0.0 % [facility] Promyelocyte pct 0.0 0.0 - 0.0 % [facility] Variant lymph pct 2.0(H) 0.0 - 0.0 % [facility] RBC morphology nrbcs present [facility] Polychromasia Slight [facility] Anisocytosis Moderate(A) [facility] Poikilocytosis Slight(A) [facility] Macrocytes 3-7/HPF(A) [facility] Schistocytes 1-2/HPF(A) [facility] Acanthocytes 3-7/HPF(A) [facility] Teardrop cells 3-7/HPF(A) [facility] Platelet estimate [facility]quate [facility] Blood specimen (specimen) 11/20/2019 9:45 AM MAINTENANCE ELECTRICIAN 11/20/2019 9:48 AM MAINTENANCE ELECTRICIAN us Narcisa Kilgore PROOF 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 LAB BLOOD ORDERABLES Pilar armas Result [facility] Department [place] [address] * (ABNORMAL) CBC with auto differential (11/20/2019 9:45 AM MAINTENANCE ELECTRICIAN) WBC 14.1(H) 3.8 - 9.8 K/cumm [facility] Comment:Testing performed by : [facility], [address] [place] [phone] Hgb 14.2 13.8 - 17.2 g/dL [facility] Comment:Testing performed by : [facility], [address] [place] [phone] Hct 42.2 40.7 - 50.3 % [facility] Comment:Testing performed by : [facility], [address] [place] [phone] Plt 291 140 - 440 K/cumm [facility] Comment:Testing performed by : [facility], [address] [place] [phone] MPV 9.2 6.8 - 10.4 fL [facility] Comment:Testing performed by : [facility], [address] [place] [phone] RBC 4.17(L) 4.50 - 5.70 M/cumm [facility] Comment:Testing performed by : [facility], [address] [place] [phone] MCV 101.3(H) 80.0 - 97.[address] [facility] Comment:Testing performed by : [facility], [address] [place] [phone] MCH 34.1(H) 26.7 - 33.[address] [facility] Comment:Testing performed by : [facility], [address] [place] [phone] MCHC 33.6 32.7 - 35.5 g/dL [facility] Comment:Testing performed by : [facility], [address] [place] [phone] RDW CV 14.5 11.8 - 14.6 % [facility] Comment:Testing performed by : [facility], [address] [place] [phone] NRBC abs 0.52(H) 0.00 - 0.01 K/cumm [facility] Comment:Testing performed by : [facility], [address] [place] [phone] Blood specimen (specimen) 11/20/2019 9:45 AM MAINTENANCE ELECTRICIAN 11/20/2019 9:48 AM MAINTENANCE ELECTRICIAN Narcisa Kilgore PROOF 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 LAB BLOOD ORDERABLES Pilar l Result Performing Organization Address City/[facility]/ZIP Co de Phone Number [facility] [place] [address] * (ABNORMAL) T-helper cells (CD4) count (11/20/2019 9:44 AM MAINTENANCE ELECTRICIAN) CD4 pct 43 31 - 64 % [facility] CD4 Absolute 1,527(H) 365 - 1,294 cells/mcL [facility] Blood specimen (specimen) 11/20/2019 9:44 AM MAINTENANCE ELECTRICIAN 11/20/2019 10:00 AM MAINTENANCE ELECTRICIAN Narcisa Kilgore PROOF 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 LAB BLOOD ORDERABLES Pilar l Result Performing Organization Address City/[facility]/ZIP Co de Phone Number [facility] [place] [address] * Cytomegalovirus (CMV) DNA PCR, quantitative Blood (11/20/2019 9:44 AM MAINTENANCE ELECTRICIAN) [facility] CMV DNA Not Detected [facility] Comment: Interpretive Data: The quantifiable range of this assay is 137 IUnits/mL to 9,100,000 IUnits/mL (2.14 log IUnits/mL to 6.96 log IUnits/mL). Testing was performed by the [employer] AmpliPrep/MICHEL TaqMan CMV Test ([employer] Testing performed at [facility] Current interpretive data was last revised on 17. Blood specimen (specimen) 11/20/2019 9:44 AM MAINTENANCE ELECTRICIAN 11/20/2019 12:44 PM MAINTENANCE ELECTRICIAN us Narcisa Kilgore PROOF 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 LAB MICROBIOLOGY - GENERA L ORDERABLES Final Result Performing Organization Address [facility]/ZIP Co de Phone Number [facility] Department [place] [address] * (ABNORMAL) Phosphorus (11/20/2019 9:29 AM MAINTENANCE ELECTRICIAN) [facility] Phosphorus, pl 2.0(L) 2.3 - 4.5 mg/dL [facility] Blood specimen (specimen) 11/20/2019 9:29 AM MAINTENANCE ELECTRICIAN 11/20/2019 10:09 AM MAINTENANCE ELECTRICIAN us Notinfile Unknown LAB BLOOD ORDERABLES Final Res ult [facility] Department [place] [address] * (ABNORMAL) Comprehensive metabolic panel (11/20/2019 9:29 AM MAINTENANCE ELECTRICIAN) [facility] Sodium 138 135 - 145 mmol/L [facility] Potassium, pl 3.9 3.3 - 4.9 mmol/L [facility] Chloride 97 97 - 110 mmol/L [facility] CO2 35(H) 22 - 32 mmol/L [facility] Anion gap 6 2 - 15 mmol/L [facility] BUN 15 8 - 25 mg/dL [facility] Creatinine 0.74(L) 0.80 - 1.30 mg/dL [facility] Glucose 402(H) 70 - 199 mg/dL [facility] Comment: Interpretive Data Fasting glucose >/= [...] interpretive data was last revised 2017. Calcium 9.4 8.5 - 10.3 mg/dL [facility] Bilirubin, total 0.3 0.1 - 1.2 mg/dL [facility] Protein, pl 7.0 6.5 - 8.5 g/dL [facility] Albumin 3.7 3.5 - 5.0 g/dL [facility] Alk phos 118 40 - 130 Units/L [facility] ALT 30 7 - 55 Units/L [facility] AST 18 10 - 50 Units/L [facility] Blood specimen (specimen) 11/20/2019 9:29 AM MAINTENANCE ELECTRICIAN 11/20/2019 10:05 AM MAINTENANCE ELECTRICIAN Eneida Gibson MD LAB BLOOD ORDERABLES Final Resul t [facility] [place] [address] * (ABNORMAL) Hemoglobin A1c (11/20/2019 9:29 AM MAINTENANCE ELECTRICIAN) Hgb A1C 13.5(H) 4.0 - 5.6 % [facility] Estimated Average Glucose 341 mg/dL [facility] Comment: The ADA recommends reporting an estimated Average Glucose (eAG) with all Hemoglobin A1c results using the equation derived from a study of 507 normal and diabetic adults. ??Minority populations were underrepresented and children were not included. ?? (Diabetes Care 31:6489-6298, 2008). ??The eAG is not equivalent to a fasting glucose. Blood specimen (specimen) 11/20/2019 9:29 AM MAINTENANCE ELECTRICIAN 11/20/2019 10:05 AM MAINTENANCE ELECTRICIAN Eneida Gibson MD LAB BLOOD ORDERABLES Final Resul t Performing Organization Address [facility] Co de Phone Number [facility] [place] [employer] [place] [address] * (ABNORMAL) Vitamin D 25 hydroxy (11/20/2019 9:29 AM MAINTENANCE ELECTRICIAN) Vitamin D 25-OH 16(L) 30 - 80 ng/mL [facility] Blood specimen (specimen) 11/20/2019 9:29 AM MAINTENANCE ELECTRICIAN 11/20/2019 10:09 AM MAINTENANCE ELECTRICIAN Eneida Gibson MD LAB BLOOD ORDERABLES Final Resul t Performing Organization Address [facility] de Phone Number [facility] [place] [address] * IgG (11/20/2019 9:29 AM MAINTENANCE ELECTRICIAN) Immunoglobulin G 900.0 700.0 - 1,600.0 mg/dL [facility] Blood specimen (specimen) 11/20/2019 9:29 AM MAINTENANCE ELECTRICIAN 11/20/2019 10:09 AM MAINTENANCE ELECTRICIAN Narcisa Kilgore PROOF 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 LAB BLOOD ORDERABLES Pilar l Result Performing Organization Address [facility] de Phone Number [facility] [place] [address] * (ABNORMAL) Lactate dehydrogenase (LD) (11/20/2019 9:29 AM MAINTENANCE ELECTRICIAN) Lactate dehydrogenase (LDH) 428(H) 100 - 250 Units/L [facility] Blood specimen (specimen) 11/20/2019 9:29 AM MAINTENANCE ELECTRICIAN 11/20/2019 10:09 AM MAINTENANCE ELECTRICIAN Narcisa Kilgore PROOF 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 LAB BLOOD ORDERABLES Pilar l Result Performing Organization Address [facility] de Phone Number [facility] [place] [address] * Magnesium (11/20/2019 9:29 AM MAINTENANCE ELECTRICIAN) Magnesium 1.7 1.4 - 2.5 mg/dL [facility] Blood specimen (specimen) 11/20/2019 9:29 AM MAINTENANCE ELECTRICIAN 11/20/2019 10:09 AM MAINTENANCE ELECTRICIAN Narcisa Kilgore PROOF 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 LAB BLOOD ORDERABLES Pilar l Result Performing Organization Address [facility] Phone Number [facility] Department [place] [address] * Tacrolimus level, random (11/20/2019 9:29 AM MAINTENANCE ELECTRICIAN) Tacrolimus, random <1.0 ng/mL [facility] Comment: Undetectable. ??Please verify that the correct immunosuppressant test was requested. Interpretive Data Testing performed by liquid chromatography-tandem mass spectrometry. ??Therapeutic concentrations vary depending on type of transplanted organ and time elapsed since transplant. ??Typical trough concentrations range from 5-15 ng/mL. ??This test was developed and its performance characteristics determined by the [facility] consistent with CLIA requirements. ??This test has not been cleared or approved by the [place] Food and Drug administration. ??Current interpretive data last reviewed 2019. Blood specimen (specimen) 11/20/2019 9:29 AM MAINTENANCE ELECTRICIAN 11/20/2019 10:05 AM MAINTENANCE ELECTRICIAN Narcisa Kilgore PROOF 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 LAB BLOOD ORDERABLES Pilar l Result Performing Organization Address [facility] de Phone Number [facility] Department [place] [address] * Uric acid (11/20/2019 9:29 AM MAINTENANCE ELECTRICIAN) Uric acid 5.2 3.0 - 8.0 mg/dL [facility] Blood specimen (specimen) 11/20/2019 9:29 AM MAINTENANCE ELECTRICIAN 11/20/2019 10:09 AM MAINTENANCE ELECTRICIAN us Narcisa Kilgore PROOF 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 LAB BLOOD ORDERABLES Pilar l Result ZULEMA 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
--- OUTSIDE RECORDS SUMMARY | 2024-11-22 11:05 | XMS_ITS | Encounter Summary ---
Author Organization [facility] Address [address] [place] [address] Phone Care Team Providers Care Flare Breaker Name Role Phone Kirt Lindsay DO Primary Care Provider [phone] Encounter Details Date Type Department Care Team (Late st Contact Info) Description 07/31/2019 Orders Only [facility] Oncology [address] Advanced Medicine 7th [place] [address] [place] [address] Eneida Gibson MD [address] [place] [address] Type 2 diabetes mellitus with hyperosmolarity without coma, with long-term current use of insulin ([facility]) (Primary Dx) Social History Tobacco Use Types Packs/Day Years Used Date Smoking Tobacco: Every Day Smokeless Tobacco: Never Comments:Pt not interested i n smoking cessation program Sex and Gender Information Value Date Recorded Sex Assigned at Not on file Legal Sex Male 10:48 AM INGREDIENT SCALER Gender Identity Not on file Sexual Orientation Not on file documented as of this encounter Ordered Prescriptions Prescription Sig Dispense Quantity Refills Last Filled Start Date End Date metFORMIN XR (GLUCOPHAGE XR) 500 mg 24 hr tabletIndications:Typ e 2 diabetes mellitus with hyperosmolarity without coma, with long-term current use of insulin (HCC) Take 2 tablets (1,000 mg total) by mouth 2 (two) times a day 120 tablet 3 07/31/2019 0 documented in this encounter Plan of Treatment Not on file documented as of this encounter Visit Diagnoses Diagnosis Type 2 diabetes mellitus with hyperosmolarity without coma, with long-term current use of insulin (HCC)- Primary documented in this encounter Discontinued Medications Medication Sig Discontinue Reason Start Date End Da te metFORMIN XR (GLUCOPHAGE XR) 500 mg 24 hr tabletIndications:Type 2 diabetes mellitus with hyperosmolarity without coma, with long-term current use of insulin (HCC) Take 2 tablets (1,000 mg total) by mouth 2 (two) times a day Reorder 07/31/2019 07/31/2019 documented as of this encounter 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
--- OUTSIDE RECORDS SUMMARY | 2024-11-22 11:05 | XMS_ITS | Encounter Summary ---
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 Shortness of Breath Encounter Details Date Type Department Care Team (Latest Contact Info) Description 08/22/2019 10:54 AM CDT - 08/25/2019 5:17 PM CDT Hospital Encounter [address] [id number] Josué Del Valle MD PhD [address], [address] [place] [address] 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); Mnyro-uyxfaz-aumt disease (CMS/HCC); Type 2 diabetes mellitus with [...] on file 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 Gender Identity Not on file Sexual Orientation Not on file documented as of this encounter Last Filed Vital Signs Vital Sign Reading Time Taken Comments Blood Pressure 130/81 08/25/2019 11:46 AM CDT Pulse 110 08/25/2019 11:46 AM CDT Temperature 36.5 ??C (97.7 ??F) 08/25/2019 11:46 AM C DT Respiratory Rate 18 08/25/2019 11:46 AM CDT Oxygen Saturation 88% 08/25/2019 11:46 AM CDT rn notified Inhaled Oxygen Concentration - - Weight 79.4 kg (175 lb) 08/24/2019 10:01 PM CDT Height 177.8 cm (5' 10 ) 08/22/2019 4:10 PM CDT Body Mass Index 25.11 08/22/2019 4:10 PM CDT documented in this encounter Discharge Diagnoses Diagnosis Chronic obstructive pulmonary disease with (acute) exacerbation (HCC) - CHRONIC OBSTRUCTIVE PULMONARY DISEASE WITH (ACUTE) EXACERBATION Acute respiratory failure, unspecified whether with hypoxia or hypercapnia (HCC) - ACUTE RESPIRATORY FAILURE, UNSPECIFIED WHETHER WITH HYPOXIA OR HYPERCAPNIA Acute myeloblastic leukemia, in remission (HCC) - ACUTE MYELOBLASTIC LEUKEMIA, IN REMISSION Chronic pkjkd-ruiimm-wkxv disease (HCC) - CHRONIC COMAU-AAOLMP-HAFJ DISEASE Chronic vmcrf-qzxikl-xcdl disease Other complications of bone marrow transplant (HCC) - OTHER COMPLICATIONS OF BONE MARROW TRANSPLANT Stem cells transplant status (HCC) - STEM CELLS TRANSPLANT STATUS Type 2 diabetes mellitus with diabetic neuropathy, unspecified (HCC) - TYPE 2 DIABETES MELLITUS WITH DIABETIC NEUROPATHY, UNSPECIFIED Vitamin D deficiency, unspecified - VITAMIN D DEFICIENCY, UNSPECIFIED Pure hypercholesterolemia, unspecified - PURE HYPERCHOLESTEROLEMIA, UNSPECIFIED Hyperlipidemia, unspecified - HYPERLIPIDEMIA, UNSPECIFIED Nicotine dependence, unspecified, uncomplicated - NICOTINE DEPENDENCE, UNSPECIFIED, UNCOMPLICATED Other specified disorders of bone density and structure, unspecified site - OTHER SPECIFIED DISORDERS OF BONE DENSITY AND STRUCTURE, UNSPECIFIED SITE Surgical operation with transplant of whole organ as the cause of abnormal reaction of the patient, or of later complication, without mention of misadventure at the time of the procedure - SURGICAL OPERATION WITH TRANSPLANT OF WHOLE ORGAN THE CAUSE OF ABNORMAL REACTION OF THE PATIENT, 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 - DIETETICS DIRECTOR (CURRENT) USE OF ANTICOAGULANTS Long-term (current) use of 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 (HCC) - CORRECTION (CURRENT) USE OF INSULIN 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 inhaled steroids - DIETETICS DIRECTOR (CURRENT) USE OF INHALED STEROIDS Personal history of other venous thrombosis and embolism - PERSONAL HISTORY OF OTHER VENOUS THROMBOSIS AND EMBOLISM Unspecified visual disturbance - UNSPECIFIED VISUAL DISTURBANCE 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 oral hypoglycemic drugs - DIETETICS DIRECTOR (CURRENT) USE OF ORAL HYPOGLYCEMIC DRUGS Other assisted (current) drug therapy - OTHER DIETETICS DIRECTOR (CURRENT) DRUG THERAPY Localized edema - LOCALIZED EDEMA Edema Other nonmedicinal substance allergy status - OTHER NONMEDICINAL SUBSTANCE ALLERGY STATUS documented in this encounter Discharge Summaries * Mari Singh MD - 08/25/2019 1:17 PM CDT Inpatient Discharge Summary BRIEF OVERVIEW Admitting Provider: Josué Del Valle MD PhD Discharge Provider: Josué Del Valle MD PhD Primary Care Physician at Discharge: Kirt Lindsay [phone] Admission Date: 08/22/2019 Discharge Date: 08/25/2019 Admission Location: [facility] Primary Discharge Diagnosis: COPD exacerbation Secondary Discharge Diagnosis: Osteopenia Qcega-jkbsmf-kmnr disease (CMS/HCC) AML (acute myeloid leukemia) in remission ([facility]/HCC) Type 2 diabetes mellitus ([facility]/HCC) Pure hypercholesterolemia COPD, severe ([facility]/HCC) DVT (deep venous thrombosis) ([facility]/HCC) DETAILS OF HOSPITAL STAY Presenting Problem/History of Present Illness: 53 yo male with h/o 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 Of note, he was recently admitted to OSH for 9 days for similar symptoms. He was treated with antibiotics and solumedrol. Discharged on prednisone taper, currently on 40 mg. Currently requiring supplemental O2. He called oncology clinic this morning to report worsening dyspnea and was instructed to go to the cancer[facility] clinic to be admitted for further work up of potential lung involvement of GVHD. Cancer clinic: - Induction with 7+3 and HiDAC consolidation x3. - Decitabine maintenance on the CALGB 31944 protocol. - Relapsed disease, status post an allogeneic transplant with busulfan and Cytoxan on the AMD allogeneic study with his sister, 08/27 match; with day 0 on 11/09/2009. Currently in remission.?? - Follows with Dr. Del Valle. Most recent appt 05/29 but pt left before being seen Hospital Course: Acute respiratory failure Patient presented with worsening shortness of breath, cough, and an increased oxygen requirement. Prior PFTs showed and FEV1:FVC of 30 as well as an FEV1 of 30, consistent with very severe COPD. He was recently discharged from an OSH with 1-2L O2 at night and 3-4L O2 with exertion. On admission, hewas positive for rhino/entero virus, which likely triggered a COPD exacerbation. He had a chest CT showing mild central bronchial thickening consistent with bronchitis, which was essentially unchanged from prior examination. He was started on duonebs and IV methylpred. He was transitioned to prednisone 80mg, which will be tapered back to 40mg on 08/27/19. He was continued on advair and prescribed spiriva at discharge. With these interventions, his symptoms significantly improved, and he did notrequire oxygen at rest. He was hemodynamically stable during his stay. ?? 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 Steroids were managed as above. ?? Acute Myeloid Leukemia, in remission He had induction with 7+3 and HiDAC consolidation x3??s/p decitabine maintenance on the CALGB [id number]. He has relapsed disease,??status post an allogeneic transplant with busulfan and Cytoxan on the AMD allogeneic study with his sister, 08/27 match; with day 0 on 11/09/2009.??He is currentlyin remission and follows with Dr. Del Valle. He was continued on his prophylactic acyclovir and bactrim. ?? Diabetes Mellitus His home regimen is basaglar 30 units AM and lispro 10 units TID with meals. His glucose was initially difficult to control given the increased steroid doses. His sugar was eventually controlled withlantus 35U, lispro 11U with meals, and a SSI. His lantus was increased to 35U and he was continued on his home scheduled mealtime insulin and SSI at discharge. The patient was counseled to monitor his blood glucose closely as his insulin requirement will change when his steroids are decreased. He had no episodes of hypoglycemia during his stay. ?? Hyperlipidemia Continued home atorvastatin. ?? Diabetic neuropathy Continued home gabapentin. ?? Tobacco abuse Prescribed nicotine patch. ?? Osteopenia Continued home vitamin D and dietary calcium. ?? History of DVT Continued Xarelto. Active Issues Requiring Follow-up: Test Results Pending at Discharge: Order Current Status Blood culture Blood Hand, left Preliminary result Blood culture Blood Peripheral Preliminary result Operative Procedures Performed: * No procedures listed * Other Procedures: Pertinent Test Results: Discharge Details Physical Exam at Discharge: Discharge Condition: fair Pulse: 110 Resp: 18 BP: 130/81 Temp: 36.5 ??C (97.7 ??F) Weight: 79.4 kg (175 lb) Pertinent Exam Findings at Discharge: General: alert and oriented x3. NAD HEENT: NC, AT, PERRL, moist MM Heart: RRR, no murmurs Lungs: Scattered bilateral wheezing (improved). No crackles or distress. Abdomen: soft, NT, BS+. Extremities: normal appearance, no edema. Has multiple erythematous rash over the bilateral extremity. Discharge Disposition: Discharge to home or self care Code Status at Discharge: Full Discharge Instructions: Activity Instructions Discharge activity: Resume normal activity Diet Instructions Adult Discharge Diet Diet Type: Return to previous diet Other Instructions Call provider for: Temperature -Temperature greater than 101 degrees F Call provider for: difficulty breathing or chest pain Call provider for: extreme fatigue Call provider for: hives Call provider for: persistent dizziness or light-headedness Call provider for: persistent nausea or vomiting Call provider for: severe uncontrolled pain Call provider for: headache, visual disturbances, weakness and speech changes Discharge Medications: Current Medications TAKE these medications acyclovir 400 mg tablet Commonly known as: ZOVIRAX TAKE 1 TABLET BY MOUTH EVERY 8 HOURS ADVAIR DISKUS 100-50 mcg/dose diskus inhaler Generic drug: fluticasone propion-salmeterol INHALE 1 DOSE BY MOUTH TWICE DAILY atorvastatin 40 mg tablet Commonly known as: LIPITOR Take 1 tablet (40 mg total) by mouth daily ATIYAAGLJHON OAKES U-100 INSULIN 100 unit/mL (3 mL) insulin pen Generic drug: insulin glargine INJECT 35 UNITS Q AM blood glucose diagnostic strip Check blood sugar [...] Commonly known as: NEURONTIN TAKE 1 PO QD glucagon 1 mg kit Generic drug: glucagon USE DIRECTED AT SCHOOL AND HOME HumaLOG KwikPen Insulin 100 unit/mL insulin pen Generic drug: insulin lispro INJECT 10 -16 UNITS BEFORE MEALS. metFORMIN XR 500 mg 24 hr tablet Commonly known as: GLUCOPHAGE XR Take 2 tablets (1,000 mg total) by mouth 2 (two) times a day montelukast 10 mg tablet Commonly known as: SINGULAIR Take 1 tablet (10 mg total) by mouth nightly. mycophenolate mofetil 500 mg tablet Commonly known as: CELLCEPT TAKE 2 TABLETS BY MOUTH TWICE DAILY nicotine 21 mg Commonly known as: NICODERM CQ Place 1 patch on the skin daily Start taking on: 08/26/2019 ofloxacin 0.3 % ophthalmic solution Commonly known as: OCUFLOX Administer 1 drop into both eyes 2 (two) times a day pen needle, diabetic 31 gauge x 5/16 needle Use to inject 1-4 times daily as directed. predniSONE 20 mg tablet Commonly known as: DELTASONE Take 4 tablets (80 mg) by mouth daily for 1 day, THEN 2 tablets (40 mg) daily. Start taking on: 08/26/2019 sildenafil (antihypertensive) 20 mg tablet Commonly known as: REVATIO TAKE ONE TO FIVE TABLETS BY MOUTH DAILY NEEDED sodium chloride-sodium bicarbonate packet with rinse device Commonly known as: NEILMED SINUS RINSE, AYR Administer 240 mL (1 packet total) into each nostril daily as needed (sinus congestion). sulfamethoxazole-trimethoprim 800-160 mg per tablet Commonly known as: BACTRIM DS TAKE 1 TABLET BY MOUTH TWICE DAILY ON Saturday. tacrolimus 0.5 mg capsule Commonly known as: PROGRAF Take 1 capsule (0.5 mg total) by mouth every other day. tiotropium 18 mcg per inhalation capsule Commonly known as: SPIRIVA Place 1 puff (1 capsule total) into inhaler and inhale daily Start taking on: 08/26/2019 VENTOLIN HFA 90 mcg/actuation inhaler Generic drug: albuterol HFA INHALE 1 TO 2 PUFFS BY MOUTH EVERY 4 HOURS NEEDED FOR SHORTNESS OF BREATH XARELTO 20 mg tablet Generic drug: rivaroxaban TAKE 1 TABLET BY MOUTH ONCE DAILY WITH FOOD Outpatient Follow-Up: Future Appointments Date Time Provider Department Center 09/02/2019 11:00 AM LAB, [facility] ON[facility] ONC LAB [facility] 09/02/2019 11:40 AM Narcisa Kilgore NP BMT [facility] 7 BMT 10/30/2019 9:30 AM LAB, [facility] ONC ONC LAB [facility] 10/30/2019 10:20 AM Eneida Gibson MD ONC [facility] Oncology documented in this encounter Medications at Time of Discharge pen needle, diabetic 31 gauge x 5/16 needle Use to inject 1-4 times daily as directed. 100 each 11 9 11/24/19 20 predniSONE (DELTASONE) 20 mg tabletIndications:AML (acute myeloid leukemia) in remission (HCC),Mwnic-zqexyb-pyjb disease (HCC) Take 4 tablets (80 mg) by mouth daily for 1 day, THEN 2 tablets (40 mg) daily. 64 tablet 9 09/26/20 19 acyclovir (ZOVIRAX) 400 mg tabletIndications:AML (acute myeloid leukemia) in remission (HCC) TAKE 1 TABLET BY MOUTH EVERY 8 HOURS 270 tablet 1 9 01/15/20 20 ADVAIR DISKUS 100-50 mcg/dose diskus inhalerIndications:AML (acute myeloid leukemia) in remission (HCC) INHALE 1 DOSE BY MOUTH TWICE DAILY 60 each 3 9 11/28/19 20 atorvastatin (LIPITOR) 40 mg tabletIndications:AML (acute myeloid leukemia) in remission (HCC),Type 2 diabetes mellitus with hyperglycemia, with long-term current use of insulin (HCC),Xnfpv-lomsle-ezrj disease (HCC),H/O allogeneic bone marrow transplant (HCC),Pure hypercholesterolemia Take 1 tablet (40 mg total) by mouth daily 30 tablet 6 9 01/15/20 20 BASEVELIN OAKES U-100 INSULIN 100 unit/mL (3 mL) insulin penIndications:Type 2 diabetes mellitus with hyperosmolarity without coma, with long-term current use of insulin ([facility]) INJECT 35 UNITS Q AM 5 pen 3 9 11/27/19 20 blood glucose diagnostic stripIndications:Type 2 diabetes mellitus with hyperosmolarity without coma, with long-term current use of insulin ([facility]) Check blood sugar tid 100 each 4 9 01/15/20 20 blood-glucose meter miscIndications:Type 2 diabetes mellitus with hyperosmolarity without coma, with long-term current use of insulin ([facility]) 1 Device 3 (three) times a day 1 each 9 02/20/20 24 dextromethorphan-guaiFEN esin (TUSSIN-DM) liquid 10-100 mg/5 mL Take 5 mL by mouth 2 (two) times a day as needed for cough 118 mL 9 01/15/20 20 ergocalciferol (VITAMIN D) 50,000 unit capsuleIndications:Vitam in D deficiency Take 1 capsule (50,000 Units total) by mouth once a week 4 capsule 11 9 01/15/20 20 furosemide (LASIX) 20 mg tabletIndications:Type 2 diabetes mellitus with hyperosmolarity without coma, with long-term current use of insulin ([facility]) Take 1 tablet (20 mg total) by mouth daily As needed. 30 tablet 9 01/15/20 20 gabapentin (NEURONTIN) 300 mg capsuleIndications:Type 2 diabetes mellitus with hyperosmolarity without coma, with long-term current use of insulin ([facility]) TAKE 1 PO QD 30 capsule 3 9 11/26/19 20 glucagon (glucagon) 1 mg kitIndications:AML (acute myeloid leukemia) in remission ([facility]) USE DIRECTED AT SCHOOL AND HOME 4 11/28/19 20 HUMALOG KWIKPEN INSULIN 100 unit/mL insulin penIndications:type 2 diabetes mellitus INJECT 10 -16 UNITS BEFORE MEALS. 5 pen 3 9 11/27/19 20 metFORMIN XR (GLUCOPHAGE XR) 500 mg 24 hr tabletIndications:Type 2 diabetes mellitus with hyperosmolarity without coma, with long-term current use of insulin ([facility]) Take 2 tablets (1,000 mg total) by mouth 2 (two) times a day 120 tablet 3 9 11/28/19 20 montelukast (SINGULAIR) 10 mg tabletIndications:AML (acute myeloid leukemia) in remission (HCC),Rreks-epxcge-grmy disease (HCC) Take 1 tablet (10 mg total) by mouth nightly. 30 tablet 11 9 12/21/19 20 mycophenolate mofetil (CELLCEPT) 500 mg tabletIndications:AML (acute myeloid leukemia) in remission (HCC),Hvscq-mpvlsv-blui disease (HCC) TAKE 2 TABLETS BY MOUTH TWICE DAILY 180 tablet 3 9 01/15/20 20 nicotine (NICODERM CQ) [address] 1 patch on the skin daily 30 patch 9 11/23/19 21 ofloxacin (OCUFLOX) 0.3 % ophthalmic solution Administer 1 drop into both eyes 2 (two) times a day 5 mL 1 9 01/15/20 20 sildenafil, antihypertensive, (REVATIO) 20 mg tablet TAKE ONE TO FIVE TABLETS BY MOUTH DAILY NEEDED 12 9 11/28/19 20 sodium chloride-sodium bicarbonate (NEILMED SINUS RINSE, AYR) packet with rinse device Administer 240 mL (1 packet total) into each nostril daily as needed (sinus congestion). 1 each 9 11/28/19 20 sulfamethoxazole-trimeth oprim (BACTRIM DS,SEPTRA DS) 800-160 mg per tablet TAKE 1 TABLET BY MOUTH TWICE DAILY ON Saturday. 6 9 11/28/19 20 tacrolimus (PROGRAF) 0.5 mg capsule Take 1 capsule (0.5 mg total) by mouth every other day. 9 12/14/19 21 tiotropium (SPIRIVA) 18 mcg per inhalation capsule Place 1 puff (1 capsule total) into inhaler and inhale daily 30 capsule 1 9 11/28/19 20 VENTOLIN HFA 90 mcg/actuation inhalerIndications:AML (acute myeloid leukemia) in remission (HCC) INHALE 1 TO 2 PUFFS BY MOUTH EVERY 4 HOURS NEEDED FOR SHORTNESS OF BREATH 1 Inhaler 3 9 09/23/20 19 XARELTO 20 mg tabletIndications:AML (acute myeloid leukemia) in remission (HCC) TAKE 1 TABLET BY MOUTH ONCE DAILY WITH FOOD 60 tablet 1 9 01/15/20 20 documented as of this encounter Ordered Prescriptions Prescription Sig Dispense Quantity Refills Last Filled Start Date End Date dextromethorphan-guai FENesin (TUSSIN-DM) liquid 10-100 mg/5 mL Take 5 mL by mouth 2 (two) times a day as needed for cough 118 mL 08/25/2019 0 BASAGLAR KWIKPEN U-100 INSULIN 100 unit/mL (3 mL) insulin penIndications:Type 2 diabetes mellitus with hyperosmolarity without coma, with long-term current use of insulin (HCC) INJECT 35 UNITS Q AM 5 pen 3 08/25/2019 0 predniSONE (DELTASONE) 20 mg tabletIndications:AML (acute myeloid leukemia) in remission (HCC),Gwfum-rucyuf-ri st disease (HCC) Take 4 tablets (80 mg) by mouth daily for 1 day, THEN 2 tablets (40 mg) daily. 64 tablet 08/26/2019 9 nicotine (NICODERM CQ) [address] 1 patch on the skin daily 30 patch 08/26/2019 1 tiotropium (SPIRIVA) 18 mcg per inhalation capsule Place 1 puff (1 capsule total) into inhaler and inhale daily 30 capsule 1 08/26/2019 0 documented in this encounter Discharge Disposition Disposition Code Departure Means Destination Discharge to home or self care documented in this encounter Progress Notes * Giovanni Hanna, RN - 08/25/2019 3:15 PM CDT 08/25/19 1505 Discharge Summary Chart reviewed For Medical Necessity Does patient have a planned readmission to hospital planned? No Discharge Disposition Home Equipment/Provider Needs No Home Needs Identified Discharge Additional Assistance Does the patient need discharge transport arranged? Yes Has discharge transport been arranged? Yes Details of Transportation Helping Aexqm-[phone], Frist [phone], tracking#[id number] What day is the transport expected? 08/25/19 What time is the transport expected? 1600 Discharge Transportation Communication Mode of transport has been discussed with the patient/family. All are agreeable to the plan and understand their responsibilities to ensure the safe transfer. No further CM/SW intervention is anticipated at this time. Discharge today * Brendan Kirby MD PhD - 08/25/2019 3:13 PM CDT BMT Progress Note BMT Day: +3573 days s/p allo SCT. Chief Complaint: Patient is a 53 y.o. male with chief complaint of SOB. Subjective No acute events last night. Today, feels like breathing is significantly better; still reports cough. No other complaints. Active Treatment & Therapy Plans for Robert Brady Brady Jones does not have any active plans of the following types: Oncology Chemotherapy Treatment, Oncology Treatment (2), Oncology Treatment (3), Oncology Supportive Care, Specialty Infusion Treatment, Blood Products, BMT, Hematology Allergies Allergen Reactions ??? Adhesive Redness Current Facility-Administered Medications: ??? acetaminophen (TYLENOL) tablet 650 mg, 650 mg, oral, Q4H PRN, Rossi Shen MD ??? acetaminophen (TYLENOL) tablet 650 mg, 650 mg, oral, Q6H PRN, Rossi Shen MD ??? acyclovir (ZOVIRAX) capsule 400 mg, 400 mg, oral, Q8H, Rossi Shen MD, 400 mg at 08/25/19 0755 ??? albuterol HFA (PROVENTIL HFA,VENTOLIN HFA,PROAIR HFA) 90 mcg/actuation inhaler 2 puff, 2 puff, inhalation, Q4H PRN, Josué Del Valle MD PhD, 2 puff at 08/24/19 0627 ? ? aluminum & magnesium sleyekchf-eipbwxmtzqz-tjfaxcmxzburfzn-lidocaine (MAGIC MOUTHWASH) suspension 1-1-1, 15 mL, swish & swallow, QID PRN, Rossi Shen MD ??? atorvastatin (LIPITOR) tablet 40 mg, 40 mg, oral, Daily, Rossi Shen MD, 40 mg at 08/25/19 0754 ??? bacitracin-polymyxin B (POLYSPORIN) 500-10,000 unit/gram ointment tube, , topical, Q4H PRN, Rossi Shen MD ??? camphor-menthol (SARNA) 0.5-0.5 % lotion, , topical, Q2H PRN, Rossi Shen MD ??? dextrose (GLUTOSE) 40 % gel 15 g, 15 g, oral, Q15 Min PRN OR dextrose (D10W) 10% bolus 250 mL, 250 mL, intravenous, Q15 Min PRN, Rossi Shen MD ??? fluticasone propion-salmeterol (ADVAIR DISKUS) 100-50 mcg/dose diskus inhaler 1 puff, 1 puff, inhalation, BID, Josué Del Valle MD PhD, 1 puff at 08/25/19 0757 ??? furosemide (LASIX) tablet 20 mg, 20 mg, oral, Daily, Rossi Shen MD, 20 mg at 08/25/19 0754 ??? glucagon injection 1 mg, 1 mg, intramuscular, Q30 Min PRN, Rossi Shen MD ??? guaiFENesin ER (MUCINEX) extended release tablet 600 mg, 600 mg, oral, BID, Heath John MD, 600 mg at 08/25/19 0755 ??? heparin 10 unit/mL flush 20-50 Units, 2-5 mL, intra-catheter, PRN, Rossi Shen MD ??? heparin 10 unit/mL flush 50 Units, 5 mL, intra-catheter, Q12H ROSA MARIA, Rossi Shen MD, 50Units at 08/24/192035 ??? insulin glargine (LANTUS) injection 35 Units, 35 Units, subcutaneous, QAM, Mari Singh MD, 35 Units at 08/25/19 0753 ??? insulin lispro (HumaLOG) injection 1-3 Units, 1-3 Units, subcutaneous, Nightly, Rossi Shen MD, 3 Units at 08/23/192158 ??? insulin lispro (HumaLOG) injection 1-5 Units, 1-5 Units, subcutaneous, TID with meals, Rossi Shen MD, 1 Units at 08/25/19 1208 ??? insulin lispro (HumaLOG) injection 11 Units, 11 Units, subcutaneous, TID with meals, Mari Martino MD, 11 Units at 08/25/19 1207 ??? loperamide (IMODIUM) capsule 2 mg, 2 mg, oral, Q1H PRN, Rossi Shen MD ??? magnesium sulfate 4 g/100 mL in water (premix) 4 g, 4 g, intravenous, Q4H PRN, Rossi Shne MD ??? magnesium sulfate 6 g in sodium chloride 0.9% 250 mL IVPB, 6 g, intravenous, Q4H PRN, Rossi Shen MD ??? montelukast (SINGULAIR) tablet 10 mg, 10 mg, oral, Nightly, Rossi Shen MD, 10 mg at 08/24/192034 ??? mycophenolate mofetil (CELLCEPT) tablet 1,000 mg, 1,000 mg, oral, BID, Rossi Shen MD, 1,000 mg at 08/25/19 0754 ??? nicotine (NICODERM CQ) 21 mg patch 24 hour 1 patch, 1 patch, transdermal, Daily, Rossi Shen MD, Stopped at 08/25/19 0758 ??? ofloxacin (OCUFLOX) 0.3 % ophthalmic solution 1 drop, 1 drop, each eye, BID, Rossi Shen MD, 1 drop at 08/25/19 0758 ??? oxyCODONE (ROXICODONE) tablet 5 mg, 5 mg, oral, Q4H PRN, Rossi Shen MD, 5 mg at 08/25/19 0633 ??? polyvinyl alcohol (LIQUIFILM TEARS) 1.4 % ophthalmic solution 2 drop, 2 drop, each eye, Q4H PRN, Rossi Shen MD ??? potassium chloride 40 mEq/520 mL in sodium chloride 0.9% (premix) 40 mEq, 40 mEq, intravenous, Q4H PRN, Rossi Shen MD ??? potassium chloride ER (KLOR-CON) extended release tablet 40 mEq, 40 mEq, oral, Q4H PRN, Nan Shen MD ??? pramoxine (TRONOLANE) 1% cream, , rectal, TID PRN, Rossi Shen MD ??? predniSONE (DELTASONE) tablet 80 mg, 80 mg, oral, Daily, Mari Singh MD, 80 mg at 08/25/19 0754 ??? rivaroxaban (XARELTO) tablet 20 mg, 20 mg, oral, Daily with dinner, Rossi Shen MD, 20 mg at 08/24/19 1745 ??? sodium chloride (OCEAN) 0.65 % nasal spray 2 spray, 2 spray, each nostril, Q1H PRN, Rossi Shen MD ? ? sodium chloride 0.9 % irrigation 30 mL, 30 mL, swish & spit, QID, Rossi Shen MD ??? sodium chloride 0.9% flush 0.5-20 mL, 0.5-20 mL, intra-catheter, Q8H ROSA MARIA, Rossi Shen MD, 10 mL at 08/25/19 0614 ??? sodium chloride 0.9% flush 0.5-20 mL, 0.5-20 mL, intra-catheter, PRN, Rossi Shen MD ??? sodium chloride 0.9% infusion, 30 mL/hr, intravenous, Continuous PRN, Rossi Shen MD ??? sodium chloride 0.9% IVPB 0-250 mL, 0-250 mL, intravenous, PRN, Rossi Shen MD ??? sulfamethoxazole-trimethoprim (BACTRIM DS) 800-160 mg per tablet 160 mg of trimethoprim, 160 mgof trimethoprim, oral, Once per day on Sat, Rossi Shen MD, 160 mg of trimethoprim at 08/24/19 0832 ??? tacrolimus (PROGRAF) capsule 0.5 mg, 0.5 mg, oral, Every other day, Rossi Shen MD, 0.5 mg at 08/24/19 0831 ??? tiotropium (SPIRIVA) 18 mcg per inhalation capsule 1 capsule, 1 capsule, inhalation, Daily, Mari Singh MD, 1 capsule at 08/25/19 0756 ??? white petrolatum-mineral oil (EUCERIN) cream, , topical, Q2H PRN, Rossi Shen MD Objective Vitals: 24hr Min/Max: Temp Min: 36.4 ??C (97.5 ??F) Max: 36.8 ??C (98.2 ??F) Pulse Min: 79 Max: 124 BP Min: 98/77 Max: 140/86 Resp Min: 18 Max: 24 SpO2 Min: 87 % Max: 94 % Most Recent : Vitals: 08/25/19 1146 BP: 130/81 BP Location: Right arm Patient Position: Sitting Pulse: 110 Resp: 18 Temp: 36.5 ??C (97.7 ??F) TempSrc: Oral SpO2: (!) 88% Weight: I/O last 2 completed shifts: In: 3480 [P.O.:3480] Out: 3175 [Urine:3175] Physical exam: General: alert and oriented x3. NAD HEENT: NC, AT, PERRL, moist MM Heart: RRR, no murmurs Lungs: Scattered bilateral wheezing (improved). No crackles or distress. Abdomen: soft, NT, BS+. Extremities: normal appearance, no edema. Has multiple erythematous rash over the bilateral extremity. ICE Score: No data found. Baseline ICE Score: CRS and ICANS Grading: No data found. Lab/Radiology/Diagnostic Review: CBC: Recent Labs Lab Units 08/25/19 0342 WBC K/cumm 11.2* HEMOGLOBIN g/dL 13.1 HEMATOCRIT % 39.5 MCV fL 103.9* MCH pg 34.5* MCHC g/dL 33.2 RDW CV % 16.4* RDWSD fL 62.4* MPV fL 11.6 NEUTROS ABS K/cumm 7.0* CMP: Recent Labs Lab Units 08/25/19 1147 08/25/19 0342 08/24/19 0445 SODIUM mmol/L -- -- 136 -- 138 POTASSIUM PLASMA mmol/L -- -- 5.0* -- 4.6 CO2 mmol/L -- -- 36* -- 31 BUN SERUM mg/dL -- -- 35* -- 32* GLUCOSE mg/dL -- -- 228* -- 192 POC GLUCOSE MONITOR mg/dL 169 < > -- < > -- CREATININE mg/dL -- -- 0.90 -- 0.68* CALCIUM mg/dL -- -- 9.2 -- 9.0 CHLORIDE mmol/L -- -- 96* -- 99 ALBUMIN g/dL -- -- -- -- 3.4* AST Units/L -- -- -- -- 57* ALT Units/L -- -- -- -- 141* ALK PHOS Units/L -- -- -- -- 118 BILIRUBIN TOTAL mg/dL -- -- -- -- 0.4 TOTAL PROTEIN g/dL -- -- -- -- 5.9* ANIONGAP mmol/L -- -- 4 -- 8 < > = values in this interval not displayed. LDH: Recent Labs Lab Units 08/24/19 0445 LACTATE DEHYDROGENASE (LDH) Units/L 718* Uric Acid: Recent Labs Lab Units 08/24/19 0445 URIC ACID mg/dL 4.9 Tacrolimus level: Recent Labs Lab Units 08/23/19 1604 TACRO RANDOM ng/mL <1.0 Recent Labs Lab Units 08/24/19 0445 PROTIME (PT) sec 10.5 PTT: Recent Labs Lab Units 08/24/19 0445 APTT sec 24.9* Assessment/Plan Acute respiratory failure - most likely COPD exacerbation 2/2 Rhino/entero virus. Recently discharged with 1-2L at night and 3-4L O2 with exertion from OSH - Ddx potential GVHD w pulmonary involvement vs other respiratory infection - Recently admitted to OSH with similar symptoms. Now with increased O2 requirement. - TTE (11/2018) EF 50%, no signs of CHF or valve disease. CT chest with contrast shows mild central bronchial thickening which is unchanged from prior examination. ?? Plan: - change to pred 80mg today - Started spiriva; albuterol PRN. Continue home advair. - Pulm toilet ?? GVHD with eyes, GI, and skin - continue cellcept 1 g BID and tacrolimus 0.5 every other day. - on prednisone 40 at admission; steroid management above - cont eye drops ?? Acute Myeloid Leukemia, in remission - Induction with 7+3 and HiDAC consolidation x3 s/p decitabine maintenance on the CALGB 93322 protocol. - Relapsed disease, status post an allogeneic transplant with busulfan and Cytoxan on the AMD allogeneic study with his sister, 08/27 match; with day 0 on 11/09/2009. - Currently in remission. Follows with Dr. Del Valle - On tacro ?? Diabetes Mellitus - On basaglar 30 units AM and novolog 10 units TID with meals and SSI at home - was initiated on lower dose of insulin in hospital but had difficulty controlling his BS due to steroids. - Increase lantus 30->35 units and scheduled mealtime insulin of 10->11 units with SSI. ?? Hyperlipidemia - continue home atorvastatin ?? Diabetic neuropathy - continue home gabapentin ?? Tobacco abuse - nicotine patch - tobacco cessation ?? Osteopenia - continue home vitamin D and dietary calcium ?? History of DVT - Cont Xarelto ?? * Mari Singh MD - 08/25/2019 9:11 AM CDT BMT Progress Note BMT Day: +3574 days s/p allo SCT. Chief Complaint: Patient is a 53 y.o. male with chief complaint of SOB. Subjective No acute events last night. Today, feels like breathing is significantly better; still reports cough. No other complaints. Active Treatment & Therapy Plans for Brady Jones Robert does not have any active plans of the following types: Oncology Chemotherapy Treatment, Oncology Treatment (2), Oncology Treatment (3), Oncology Supportive Care, Specialty Infusion Treatment, Blood Products, BMT, Hematology Allergies Allergen Reactions ??? Adhesive Redness Current Facility-Administered Medications: ??? acetaminophen (TYLENOL) tablet 650 mg, 650 mg, oral, Q4H PRN, Rossi Shen MD ??? acetaminophen (TYLENOL) tablet 650 mg, 650 mg, oral, Q6H PRN, Rossi Shen MD ??? acyclovir (ZOVIRAX) capsule 400 mg, 400 mg, oral, Q8H, Rossi Shen MD, 400 mg at 08/25/19 0755 ??? albuterol HFA (PROVENTIL HFA,VENTOLIN HFA,PROAIR HFA) 90 mcg/actuation inhaler 2 puff, 2 puff, inhalation, Q4H PRN, Josué Del Valle MD PhD, 2 puff at 08/24/19 0627 ? ? aluminum & magnesium zniqglmrv-tuzznnmatfi-stvzvnqbtlnwbtm-lidocaine (MAGIC MOUTHWASH) suspension 1-1-1, 15 mL, swish & swallow, QID PRN, Rossi Shen MD ??? atorvastatin (LIPITOR) tablet 40 mg, 40 mg, oral, Daily, Rossi Shen MD, 40 mg at 08/25/19 0754 ??? bacitracin-polymyxin B (POLYSPORIN) 500-10,000 unit/gram ointment tube, , topical, Q4H PRN, Rossi Shen MD ??? camphor-menthol (SARNA) 0.5-0.5 % lotion, , topical, Q2H PRN, Rossi Shen MD ??? dextrose (GLUTOSE) 40 % gel 15 g, 15 g, oral, Q15 Min PRN OR dextrose (D10W) 10% bolus 250 mL, 250 mL, intravenous, Q15 Min PRN, Rossi Shen MD ??? fluticasone propion-salmeterol (ADVAIR DISKUS) 100-50 mcg/dose diskus inhaler 1 puff, 1 puff, inhalation, BID, Josué Del Valle MD PhD, 1 puff at 08/25/19 0757 ??? furosemide (LASIX) tablet 20 mg, 20 mg, oral, Daily, Rossi Shen MD, 20 mg at 08/25/19 0754 ??? glucagon injection 1 mg, 1 mg, intramuscular, Q30 Min PRN, Rossi Shen MD ??? guaiFENesin ER (MUCINEX) extended release tablet 600 mg, 600 mg, oral, BID, Heath John MD, 600 mg at 08/25/19 0755 ??? heparin 10 unit/mL flush 20-50 Units, 2-5 mL, intra-catheter, PRN, Rossi Shen MD ??? heparin 10 unit/mL flush 50 Units, 5 mL, intra-catheter, Q12H ROSA MARIA, Rossi Shen MD, 50Units at 08/24/192035 ??? influenza quadrivalent [id number] (FLULAVAL,FLUARIX,FLUZONE) 60 mcg (15 mcg x 4)/0.5 mL vaccine (STANDARD age 6 months and up) 0.5 mL, 0.5 mL, intramuscular, During hospitalization, Mari Singh MD ??? insulin glargine (LANTUS) injection 35 Units, 35 Units, subcutaneous, QAM, Mari Singh MD, 35 Units at 08/25/19752 ??? insulin lispro (HumaLOG) injection 1-3 Units, 1-3 Units, subcutaneous, Nightly, Rossi Shen MD, 3 Units at 08/23/192158 ??? insulin lispro (HumaLOG) injection 1-5 Units, 1-5 Units, subcutaneous, TID with meals, Rossi Shen MD, 3 Units at 08/25/19752 ??? insulin lispro (HumaLOG) injection 11 Units, 11 Units, subcutaneous, TID with meals, Mari Martino MD, 11 Units at 08/25/19751 ??? loperamide (IMODIUM) capsule 2 mg, 2 mg, oral, Q1H PRN, Rossi Shen MD ??? magnesium sulfate 4 g/100 mL in water (premix) 4 g, 4 g, intravenous, Q4H PRN, Rossi Shen MD ??? magnesium sulfate 6 g in sodium chloride 0.9% 250 mL IVPB, 6 g, intravenous, Q4H PRN, Rossi Shen MD ??? montelukast (SINGULAIR) tablet 10 mg, 10 mg, oral, Nightly, Rossi Shen MD, 10 mg at 08/24/192034 ??? mycophenolate mofetil (CELLCEPT) tablet 1,000 mg, 1,000 mg, oral, BID, Rossi Shen MD, 1,000 mg at 08/25/19753 ??? nicotine (NICODERM CQ) 21 mg patch 24 hour 1 patch, 1 patch, transdermal, Daily, Rossi Shen MD, Stopped at 08/25/19 0758 ??? ofloxacin (OCUFLOX) 0.3 % ophthalmic solution 1 drop, 1 drop, each eye, BID, Rossi Shen MD, 1 drop at 08/25/19 0758 ??? oxyCODONE (ROXICODONE) tablet 5 mg, 5 mg, oral, Q4H PRN, Rossi Shen MD, 5 mg at 08/25/19 0633 ??? polyvinyl alcohol (LIQUIFILM TEARS) 1.4 % ophthalmic solution 2 drop, 2 drop, each eye, Q4H PRN, Rossi Shen MD ??? potassium chloride 40 mEq/520 mL in sodium chloride 0.9% (premix) 40 mEq, 40 mEq, intravenous, Q4H PRN, Rossi Shen MD ??? potassium chloride ER (KLOR-CON) extended release tablet 40 mEq, 40 mEq, oral, Q4H PRN, Nan Shen MD ??? pramoxine (TRONOLANE) 1% cream, , rectal, TID PRN, Rossi Shen MD ??? predniSONE (DELTASONE) tablet 80 mg, 80 mg, oral, Daily, Mari Singh MD, 80 mg at 08/25/19 0754 ??? rivaroxaban (XARELTO) tablet 20 mg, 20 mg, oral, Daily with dinner, Rossi Shen MD, 20 mg at 08/24/19 9095 ??? sodium chloride (OCEAN) 0.65 % nasal spray 2 spray, 2 spray, each nostril, Q1H PRN, Rossi Shen MD ? ? sodium chloride 0.9 % irrigation 30 mL, 30 mL, swish & spit, QID, Rossi Shen MD ??? sodium chloride 0.9% flush 0.5-20 mL, 0.5-20 mL, intra-catheter, Q8H ROSA MARIA, Rossi Shen MD, 10 mL at 08/25/19 0614 ??? sodium chloride 0.9% flush 0.5-20 mL, 0.5-20 mL, intra-catheter, PRN, Rossi Shen MD ??? sodium chloride 0.9% infusion, 30 mL/hr, intravenous, Continuous PRN, Rossi Shen MD ??? sodium chloride 0.9% IVPB 0-250 mL, 0-250 mL, intravenous, PRN, Rossi Shen MD ??? sulfamethoxazole-trimethoprim (BACTRIM DS) 800-160 mg per tablet 160 mg of trimethoprim, 160 mgof trimethoprim, oral, Once per day on Sat, Rossi Shen MD, 160 mg of trimethoprim at 08/24/19 0832 ??? tacrolimus (PROGRAF) capsule 0.5 mg, 0.5 mg, oral, Every other day, Rossi Shen MD, 0.5 mg at 08/24/19 0831 ??? tiotropium (SPIRIVA) 18 mcg per inhalation capsule 1 capsule, 1 capsule, inhalation, Daily, Mari Singh MD, 1 capsule at 08/25/19 0756 ??? white petrolatum-mineral oil (EUCERIN) cream, , topical, Q2H PRN, Rossi Shen MD Objective Vitals: 24hr Min/Max: Temp Min: 36.4 ??C (97.5 ??F) Max: 36.8 ??C (98.2 ??F) Pulse Min: 79 Max: 99 BP Min: 114/74 Max: 136/82 Resp Min: 20 Max: 24 SpO2 Min: 87 % Max: 93 % Most Recent : Vitals: 08/25/19 0758 BP: 123/66 BP Location: Right arm Patient Position: Lying Pulse: 99 Resp: 20 Temp: 36.4 ??C (97.5 ??F) TempSrc: Oral SpO2: (!) 87% Weight: I/O last 2 completed shifts: In: 3480 [P.O.:3480] Out: 3175 [Urine:3175] Physical exam: General: alert and oriented x3. NAD HEENT: NC, AT, PERRL, moist MM Heart: RRR, no murmurs Lungs: Scattered bilateral wheezing (improved). No crackles or distress. Abdomen: soft, NT, BS+. Extremities: normal appearance, no edema. Has multiple erythematous rash over the bilateral extremity. ICE Score: No data found. Baseline ICE Score: CRS and ICANS Grading: No data found. Lab/Radiology/Diagnostic Review: CBC: Recent Labs Lab Units 08/25/19 034 WBC K/cumm 11.2* HEMOGLOBIN g/dL 13.1 HEMATOCRIT % 39.5 MCV fL 103.9* MCH pg 34.5* MCHC g/dL 33.2 RDW CV % 16.4* RDWSD fL 62.4* MPV fL 11.6 NEUTROS ABS K/cumm 7.0* CMP: Recent Labs Lab Units 08/25/19 0637 08/25/19 03408/24/19 0445 SODIUM mmol/L -- 136 -- 138 POTASSIUM PLASMA mmol/L -- 5.0* -- 4.6 CO2 mmol/L -- 36* -- 31 BUN SERUM mg/dL -- 35* -- 32* GLUCOSE mg/dL -- 228* -- 192 POC GLUCOSE MONITOR mg/dL 246* -- < > -- CREATININE mg/dL -- 0.90 -- 0.68* CALCIUM mg/dL -- 9.2 -- 9.0 CHLORIDE mmol/L -- 96* -- 99 ALBUMIN g/dL -- -- -- 3.4* AST Units/L -- -- -- 57* ALT Units/L -- -- -- 141* ALK PHOS Units/L -- -- -- 118 BILIRUBIN TOTAL mg/dL -- -- -- 0.4 TOTAL PROTEIN g/dL -- -- -- 5.9* ANIONGAP mmol/L -- 4 -- 8 < > = values in this interval not displayed. LDH: Recent Labs Lab Units 08/24/19 0445 LACTATE DEHYDROGENASE (LDH) Units/L 718* Uric Acid: Recent Labs Lab Units 08/24/19 0445 URIC ACID mg/dL 4.9 Tacrolimus level: Recent Labs Lab Units 08/23/19 1604 TACRO RANDOM ng/mL <1.0 Recent Labs Lab Units 08/24/19 0445 PROTIME (PT) sec 10.5 PTT: Recent Labs Lab Units 08/24/19 0445 APTT sec 24.9* Assessment/Plan Acute respiratory failure - most likely COPD exacerbation 2/2 Rhino/entero virus. Recently discharged with 1-2L at night and 3-4L O2 with exertion from OSH - Ddx potential GVHD w pulmonary involvement vs other respiratory infection - Recently admitted to OSH with similar symptoms. Now with increased O2 requirement. - TTE (11/2018) EF 50%, no signs of CHF or valve disease. CT chest with contrast shows mild central bronchial thickening which is unchanged from prior examination. ?? Plan: - change to pred 80mg today - Started spiriva; albuterol PRN. Continue home advair. - Pulm toilet ?? GVHD with eyes, GI, and skin - continue cellcept 1 g BID and tacrolimus 0.5 every other day. - on prednisone 40 at admission; steroid management above - cont eye drops ?? Acute Myeloid Leukemia, in remission - Induction with 7+3 and HiDAC consolidation x3 s/p decitabine maintenance on the CALGB 84392 protocol. - Relapsed disease, status post an allogeneic transplant with busulfan and Cytoxan on the AMD allogeneic study with his sister, 08/27 match; with day 0 on 11/09/2009. - Currently in remission. Follows with Dr. Del Valle - On tacro ?? Diabetes Mellitus - On basaglar 30 units AM and novolog 10 units TID with meals and SSI at home - was initiated on lower dose of insulin in hospital but had difficulty controlling his BS due to steroids. - Increase lantus 30->35 units and scheduled mealtime insulin of 10->11 units with SSI. ?? Hyperlipidemia - continue home atorvastatin ?? Diabetic neuropathy - continue home gabapentin ?? Tobacco abuse - nicotine patch - tobacco cessation ?? Osteopenia - continue home vitamin D and dietary calcium ?? History of DVT - Cont Xarelto ?? * Brendan Kirby MD PhD - 08/24/2019 4:02 PM CDT BMT Progress Note BMT Day: +3574 days s/p allo SCT. Chief Complaint: Patient is a 53 y.o. male with chief complaint of SOB. Subjective No acute events last night. Today, feels like cough is improved but still winded when walking. No other complaints. Active Treatment & Therapy Plans for Jones, Brady Jones, Brady does not have any active plans of the following types: Oncology Chemotherapy Treatment, Oncology Treatment (2), Oncology Treatment (3), Oncology Supportive Care, Specialty Infusion Treatment, Blood Products, BMT, Hematology Allergies Allergen Reactions ??? Adhesive Redness Current Facility-Administered Medications: ??? acetaminophen (TYLENOL) tablet 650 mg, 650 mg, oral, Q4H PRN, Rossi Shen MD ??? acetaminophen (TYLENOL) tablet 650 mg, 650 mg, oral, Q6H PRN, Rossi Shen MD ??? acyclovir (ZOVIRAX) capsule 400 mg, 400 mg, oral, Q8H, Rossi Shen MD, 400 mg at 08/24/19830 ??? albuterol HFA (PROVENTIL HFA,VENTOLIN HFA,PROAIR HFA) 90 mcg/actuation inhaler 2 puff, 2 puff, inhalation, Q4H PRN, Josué Del Valle MD PhD, 2 puff at 08/24/19626 ? ? aluminum & magnesium dxlwzcnkx-mfnnegkddcy-uapwsnyavrmpzaz-lidocaine (MAGIC MOUTHWASH) suspension 1-1-1, 15 mL, swish & swallow, QID PRN, Rossi Shen MD ??? atorvastatin (LIPITOR) tablet 40 mg, 40 mg, oral, Daily, Rossi Shen MD, 40 mg at 08/24/19830 ??? bacitracin-polymyxin B (POLYSPORIN) 500-10,000 unit/gram ointment tube, , topical, Q4H PRN, Rossi Shen MD ??? camphor-menthol (SARNA) 0.5-0.5 % lotion, , topical, Q2H PRN, Rossi Shen MD ??? dextrose (GLUTOSE) 40 % gel 15 g, 15 g, oral, Q15 Min PRN OR dextrose (D10W) 10% bolus 250 mL, 250 mL, intravenous, Q15 Min PRN, Rossi Shen MD ??? fluticasone propion-salmeterol (ADVAIR DISKUS) 100-50 mcg/dose diskus inhaler 1 puff, 1 puff, inhalation, BID, Josué Del Valle MD PhD, 1 puff at 08/24/19 0832 ??? furosemide (LASIX) tablet 20 mg, 20 mg, oral, Daily, Rossi Shen MD, 20 mg at 08/24/19 0832 ??? glucagon injection 1 mg, 1 mg, intramuscular, Q30 Min PRN, Rossi Shen MD ??? guaiFENesin ER (MUCINEX) extended release tablet 600 mg, 600 mg, oral, BID, Heath John MD, 600 mg at 08/24/19 0832 ??? heparin 10 unit/mL flush 20-50 Units, 2-5 mL, intra-catheter, PRN, Rossi Shen MD ??? heparin 10 unit/mL flush 50 Units, 5 mL, intra-catheter, Q12H ROSA MARIA, Rossi Shen MD, 50Units at 08/24/19 0838 ??? influenza quadrivalent [id number] (FLULAVAL,FLUARIX,FLUZONE) 60 mcg (15 mcg x 4)/0.5 mL vaccine (STANDARD age 6 months and up) 0.5 mL, 0.5 mL, intramuscular, During hospitalization, Mari Singh MD ??? insulin glargine (LANTUS) injection 30 Units, 30 Units, subcutaneous, QAM, Renaldo Montoya MD,30 Units at 08/24/19 0830 ??? insulin lispro (HumaLOG) injection 1-3 Units, 1-3 Units, subcutaneous, Nightly, Rossi Shen MD, 3 Units at 08/23/19 2159 ??? insulin lispro (HumaLOG) injection 1-5 Units, 1-5 Units, subcutaneous, TID with meals, Rossi Shen MD, 5 Units at 08/24/19 1218 ??? insulin lispro (HumaLOG) injection 10 Units, 10 Units, subcutaneous, TID with meals, Renaldo Montoya MD, 10 Units at 08/24/19 1219 ??? loperamide (IMODIUM) capsule 2 mg, 2 mg, oral, Q1H PRN, Rossi Shen MD ??? magnesium sulfate 4 g/100 mL in water (premix) 4 g, 4 g, intravenous, Q4H PRN, Rossi Shen MD ??? magnesium sulfate 6 g in sodium chloride 0.9% 250 mL IVPB, 6 g, intravenous, Q4H PRN, Rossi Shen MD ??? montelukast (SINGULAIR) tablet 10 mg, 10 mg, oral, Nightly, Rossi Shen MD, 10 mg at 08/23/192037 ??? mycophenolate mofetil (CELLCEPT) tablet 1,000 mg, 1,000 mg, oral, BID, Rossi Shen MD, 1,000 mg at 08/24/19 0837 ??? nicotine (NICODERM CQ) 21 mg patch 24 hour 1 patch, 1 patch, transdermal, Daily, Rossi Shen MD, Stopped at 08/24/19 0852 ??? ofloxacin (OCUFLOX) 0.3 % ophthalmic solution 1 drop, 1 drop, each eye, BID, Rossi Shen MD, 1 drop at 08/24/19 0834 ??? oxyCODONE (ROXICODONE) tablet 5 mg, 5 mg, oral, Q4H PRN, Rossi Shen MD, 5 mg at 08/24/19 0447 ??? polyvinyl alcohol (LIQUIFILM TEARS) 1.4 % ophthalmic solution 2 drop, 2 drop, each eye, Q4H PRN, Rossi Shen MD ??? potassium chloride 40 mEq/520 mL in sodium chloride 0.9% (premix) 40 mEq, 40 mEq, intravenous, Q4H PRN, Rossi Shen MD ??? potassium chloride ER (KLOR-CON) extended release tablet 40 mEq, 40 mEq, oral, Q4H PRN, Nan Shen MD ??? pramoxine (TRONOLANE) 1% cream, , rectal, TID PRN, Rossi Shen MD ??? [START ON 08/25/2019] predniSONE (DELTASONE) tablet 80 mg, 80 mg, oral, Daily, Mari Singh MD ??? rivaroxaban (XARELTO) tablet 20 mg, 20 mg, oral, Daily with dinner, Rossi Shen MD, 20 mg at 08/23/19 1721 ??? sodium chloride (OCEAN) 0.65 % nasal spray 2 spray, 2 spray, each nostril, Q1H PRN, Rossi Shen MD ? ? sodium chloride 0.9 % irrigation 30 mL, 30 mL, swish & spit, QID, Rossi Shen MD ??? sodium chloride 0.9% flush 0.5-20 mL, 0.5-20 mL, intra-catheter, Q8H ROSA MARIA, Rossi Shen MD, 10 mL at 08/24/19 1430 ??? sodium chloride 0.9% flush 0.5-20 mL, 0.5-20 mL, intra-catheter, PRN, Rossi Shen MD ??? sodium chloride 0.9% infusion, 30 mL/hr, intravenous, Continuous PRN, Rossi Shen MD ??? sodium chloride 0.9% IVPB 0-250 mL, 0-250 mL, intravenous, PRN, Rossi Shen MD ??? sulfamethoxazole-trimethoprim (BACTRIM DS) 800-160 mg per tablet 160 mg of trimethoprim, 160 mgof trimethoprim, oral, Once per day on Sat, Rossi Shen MD, 160 mg of trimethoprim at 08/24/19 0832 ??? tacrolimus (PROGRAF) capsule 0.5 mg, 0.5 mg, oral, Every other day, Rossi Shen MD, 0.5 mg at 08/24/19 0831 ??? [START ON 08/25/2019] tiotropium (SPIRIVA) 18 mcg per inhalation capsule 1 capsule, 1 capsule, inhalation, Daily, Mari Singh MD ??? white petrolatum-mineral oil (EUCERIN) cream, , topical, Q2H PRN, Rossi Shen MD Objective Vitals: 24hr Min/Max: Temp Min: 36.4 ??C (97.5 ??F) Max: 36.8 ??C (98.2 ??F) Pulse Min: 73 Max: 94 BP Min: 112/54 Max: 139/74 Resp Min: 20 Max: 24 SpO2 Min: 88 % Max: 100 % Most Recent : Vitals: 08/24/19 1140 BP: 114/74 BP Location: Right arm Patient Position: Lying Pulse: 90 Resp: 24 Temp: 36.8 ??C (98.2 ??F) TempSrc: Oral SpO2: (!) 88% Weight: I/O last 2 completed shifts: In: 3060 [P.O.:3060] Out: 350 [Urine:350] Physical exam: General: alert and oriented x3. Disheveled, NAD HEENT: NC, AT, PERRL, moist MM Heart: RRR, no murmurs Lungs: Mild bilateral wheezing and rhonchi. No crackles or distress. Abdomen: soft, NT, BS+. Extremities: normal appearance, no edema. Has multiple erythematous rash over the bilateral extremity. ICE Score: No data found. Baseline ICE Score: CRS and ICANS Grading: No data found. Lab/Radiology/Diagnostic Review: CBC: Recent Labs Lab Units 08/24/19 0445 WBC K/cumm 13.9* HEMOGLOBIN g/dL 12.5* HEMATOCRIT % 37.5* MCV fL 105.3* MCH pg 35.1* MCHC g/dL 33.3 RDW CV % 16.4* RDWSD fL 63.6* MPV fL 10.9 NEUTROS ABS K/cumm 9.4* CMP: Recent Labs Lab Units 08/24/19 1138 08/24/19 0445 SODIUM mmol/L -- -- 138 POTASSIUM PLASMA mmol/L -- -- 4.6 CO2 mmol/L -- -- 31 BUN SERUM mg/dL -- -- 32* GLUCOSE mg/dL -- -- 192 POC GLUCOSE MONITOR mg/dL 294* < > -- CREATININE mg/dL -- -- 0.68* CALCIUM mg/dL -- -- 9.0 CHLORIDE mmol/L -- -- 99 ALBUMIN g/dL -- -- 3.4* AST Units/L -- -- 57* ALT Units/L -- -- 141* ALK PHOS Units/L -- -- 118 BILIRUBIN TOTAL mg/dL -- -- 0.4 TOTAL PROTEIN g/dL -- -- 5.9* ANIONGAP mmol/L -- -- 8 < > = values in this interval not displayed. LDH: Recent Labs Lab Units 08/24/19 0445 LACTATE DEHYDROGENASE (LDH) Units/L 718* Uric Acid: Recent Labs Lab Units 08/24/19 0445 URIC ACID mg/dL 4.9 Tacrolimus level: Recent Labs Lab Units 08/23/19 1604 TACRO RANDOM ng/mL <1.0 Sirolimus level: Cyclosporine level: PT: Recent Labs Lab Units 08/24/19 0445 PROTIME (PT) sec 10.5 PTT: Recent Labs Lab Units 08/24/19 0445 APTT sec 24.9* Assessment/Plan Acute respiratory failure - most likely COPD exacerbation 2/2 Rhino/entero virus. - Ddx potential GVHD w pulmonary involvement vs other respiratory infection - Recently admitted to OSH with similar symptoms. Now with new O2 requirement. - TTE (11/2018) EF 50%, no signs of CHF or valve disease. CT chest with contrast shows mild central bronchial thickening which is unchanged from prior examination. ?? Plan: - Continue solumedrol 60 IV daily; change to pred 80mg tomorrow - Start spiriva; albuterol PRN. Continue home advair. - Wean O2 as tolerated - Pulm toilet ?? GVHD with eyes, GI, and skin - continue cellcept 1 g BID and tacrolimus 0.5 every other day. - on prednisone 40 at home; today is day 3 solumedrol 60 IV daily; change to prednisone 80mg tomorrow for 5 days of increased steroids - cont eye drops ?? Acute Myeloid Leukemia, in remission - Induction with 7+3 and HiDAC consolidation x3 s/p decitabine maintenance on the CALGB 41627 protocol. - Relapsed disease, status post an allogeneic transplant with busulfan and Cytoxan on the AMD allogeneic study with his sister, 08/27 match; with day 0 on 11/09/2009. - Currently in remission. Follows with Dr. Del Valle - On tacro ?? Diabetes Mellitus - On basaglar 30 units AM and novolog 10 units TID with meals and SSI at home - was initiated on lower dose of insulin in hospital but had difficulty controlling his BS due to steroids. - Cont lantus 30 units and scheduled mealtime insulin of 10 units with SSI. ?? Hyperlipidemia - continue home atorvastatin ?? Diabetic neuropathy - continue home gabapentin ?? Tobacco abuse - nicotine patch - tobacco cessation ?? Osteopenia - continue home vitamin D and dietary calcium ?? History of DVT - Cont Xarelto ?? * Mari Singh MD - 08/24/2019 12:59 PM CDT BMT Progress Note BMT Day: +3573 days s/p allo SCT. Chief Complaint: Patient is a 53 y.o. male with chief complaint of SOB. Subjective No acute events last night. Today, feels like cough is improved but still winded when walking. No other complaints. Active Treatment & Therapy Plans for Brady Jones Robert does not have any active plans of the following types: Oncology Chemotherapy Treatment, Oncology Treatment (2), Oncology Treatment (3), Oncology Supportive Care, Specialty Infusion Treatment, Blood Products, BMT, Hematology Allergies Allergen Reactions ??? Adhesive Redness Current Facility-Administered Medications: ??? acetaminophen (TYLENOL) tablet 650 mg, 650 mg, oral, Q4H PRN, Rossi Shen MD ??? acetaminophen (TYLENOL) tablet 650 mg, 650 mg, oral, Q6H PRN, Rossi Shen MD ??? acyclovir (ZOVIRAX) capsule 400 mg, 400 mg, oral, Q8H, Rossi Shen MD, 400 mg at 08/24/19 0831 ??? albuterol HFA (PROVENTIL HFA,VENTOLIN HFA,PROAIR HFA) 90 mcg/actuation inhaler 2 puff, 2 puff, inhalation, Q4H PRN, Josué Del Valle MD PhD, 2 puff at 08/24/19626 ? ? aluminum & magnesium hwugotwbj-plwodanpato-zjslydxyojfnqyc-lidocaine (MAGIC MOUTHWASH) suspension 1-1-1, 15 mL, swish & swallow, QID PRN, Rossi Shen MD ??? atorvastatin (LIPITOR) tablet 40 mg, 40 mg, oral, Daily, Rossi Shen MD, 40 mg at 08/24/19 0831 ??? bacitracin-polymyxin B (POLYSPORIN) 500-10,000 unit/gram ointment tube, , topical, Q4H PRN, Rossi Shen MD ??? camphor-menthol (SARNA) 0.5-0.5 % lotion, , topical, Q2H PRN, Rossi Shen MD ??? dextrose (GLUTOSE) 40 % gel 15 g, 15 g, oral, Q15 Min PRN OR dextrose (D10W) 10% bolus 250 mL, 250 mL, intravenous, Q15 Min PRN, Rossi Shen MD ??? fluticasone propion-salmeterol (ADVAIR DISKUS) 100-50 mcg/dose diskus inhaler 1 puff, 1 puff, inhalation, BID, Josué Del Valle MD PhD, 1 puff at 08/24/19 0832 ??? furosemide (LASIX) tablet 20 mg, 20 mg, oral, Daily, Rossi Shen MD, 20 mg at 08/24/19 0832 ??? glucagon injection 1 mg, 1 mg, intramuscular, Q30 Min PRN, Rossi Shen MD ??? guaiFENesin ER (MUCINEX) extended release tablet 600 mg, 600 mg, oral, BID, Heath John MD, 600 mg at 08/24/19 0832 ??? heparin 10 unit/mL flush 20-50 Units, 2-5 mL, intra-catheter, PRN, Rossi Shen MD ??? heparin 10 unit/mL flush 50 Units, 5 mL, intra-catheter, Q12H ROSA MARIA, Rossi Shen MD, 50Units at 08/24/19 0838 ??? influenza quadrivalent [id number] (FLULAVAL,FLUARIX,FLUZONE) 60 mcg (15 mcg x 4)/0.5 mL vaccine (STANDARD age 6 months and up) 0.5 mL, 0.5 mL, intramuscular, During hospitalization, Mari Singh MD ??? insulin glargine (LANTUS) injection 30 Units, 30 Units, subcutaneous, QAM, Renaldo Montoya MD,30 Units at 08/24/19 0830 ??? insulin lispro (HumaLOG) injection 1-3 Units, 1-3 Units, subcutaneous, Nightly, Rossi Shen MD, 3 Units at 08/23/192158 ??? insulin lispro (HumaLOG) injection 1-5 Units, 1-5 Units, subcutaneous, TID with meals, Rossi Shen MD, 5 Units at 08/24/19 1218 ??? insulin lispro (HumaLOG) injection 10 Units, 10 Units, subcutaneous, TID with meals, Renaldo Montoya MD, 10 Units at 08/24/19 1219 ??? loperamide (IMODIUM) capsule 2 mg, 2 mg, oral, Q1H PRN, Rossi Shen MD ??? magnesium sulfate 4 g/100 mL in water (premix) 4 g, 4 g, intravenous, Q4H PRN, Rossi Shen MD ??? magnesium sulfate 6 g in sodium chloride 0.9% 250 mL IVPB, 6 g, intravenous, Q4H PRN, Rossi Shen MD ??? methylPREDNISolone sodium succinate (SOLU-medrol) preservative free injection 60 mg, 60 mg, intravenous, Q24H ROSA MARIA, Rossi Shen MD, 60 mg at 08/24/19 0832 ??? montelukast (SINGULAIR) tablet 10 mg, 10 mg, oral, Nightly, Rossi Shen MD, 10 mg at 08/23/19 2038 ??? mycophenolate mofetil (CELLCEPT) tablet 1,000 mg, 1,000 mg, oral, BID, Rossi Shen MD, 1,000 mg at 08/24/19 0837 ??? nicotine (NICODERM CQ) 21 mg patch 24 hour 1 patch, 1 patch, transdermal, Daily, Rossi Shen MD, Stopped at 08/24/19 0852 ??? ofloxacin (OCUFLOX) 0.3 % ophthalmic solution 1 drop, 1 drop, each eye, BID, Rossi Shen MD, 1 drop at 08/24/19 0834 ??? oxyCODONE (ROXICODONE) tablet 5 mg, 5 mg, oral, Q4H PRN, Rossi Shen MD, 5 mg at 08/24/19 0447 ??? polyvinyl alcohol (LIQUIFILM TEARS) 1.4 % ophthalmic solution 2 drop, 2 drop, each eye, Q4H PRN, Rossi Shen MD ??? potassium chloride 40 mEq/520 mL in sodium chloride 0.9% (premix) 40 mEq, 40 mEq, intravenous, Q4H PRN, Rossi Shen MD ??? potassium chloride ER (KLOR-CON) extended release tablet 40 mEq, 40 mEq, oral, Q4H PRN, Nan Shen MD ??? pramoxine (TRONOLANE) 1% cream, , rectal, TID PRN, Rossi Shen MD ??? rivaroxaban (XARELTO) tablet 20 mg, 20 mg, oral, Daily with dinner, Rossi Shen MD, 20 mg at 08/23/19 1721 ??? sodium chloride (OCEAN) 0.65 % nasal spray 2 spray, 2 spray, each nostril, Q1H PRN, Rossi Shen MD ? ? sodium chloride 0.9 % irrigation 30 mL, 30 mL, swish & spit, QID, Rossi Shen MD ??? sodium chloride 0.9% flush 0.5-20 mL, 0.5-20 mL, intra-catheter, Q8H ROSA MARIA, Rossi Shen MD, 10 mL at 08/22/19 1755 ??? sodium chloride 0.9% flush 0.5-20 mL, 0.5-20 mL, intra-catheter, PRN, Rossi Shen MD ??? sodium chloride 0.9% infusion, 30 mL/hr, intravenous, Continuous PRN, Rossi Shen MD ??? sodium chloride 0.9% IVPB 0-250 mL, 0-250 mL, intravenous, PRN, Rossi Shen MD ??? sulfamethoxazole-trimethoprim (BACTRIM DS) 800-160 mg per tablet 160 mg of trimethoprim, 160 mgof trimethoprim, oral, Once per day on Sat, Rossi Shen MD, 160 mg of trimethoprim at 08/24/19 0832 ??? tacrolimus (PROGRAF) capsule 0.5 mg, 0.5 mg, oral, Every other day, Rossi Shen MD, 0.5 mg at 08/24/19 0831 ??? [START ON 08/25/2019] tiotropium (SPIRIVA) 18 mcg per inhalation capsule 1 capsule, 1 capsule, inhalation, Daily, Mari Singh MD ??? white petrolatum-mineral oil (EUCERIN) cream, , topical, Q2H PRN, Rossi Shen MD Objective Vitals: 24hr Min/Max: Temp Min: 36.4 ??C (97.5 ??F) Max: 37 ??C (98.6 ??F) Pulse Min: 73 Max: 94 BP Min: 112/54 Max: 139/74 Resp Min: 18 Max: 24 SpO2 Min: 88 % Max: 100 % Most Recent : Vitals: 08/24/19 1140 BP: 114/74 BP Location: Right arm Patient Position: Lying Pulse: 90 Resp: 24 Temp: 36.8 ??C (98.2 ??F) TempSrc: Oral SpO2: (!) 88% Weight: I/O last 2 completed shifts: In: 3060 [P.O.:3060] Out: 350 [Urine:350] Physical exam: General: alert and oriented x3. Disheveled, NAD HEENT: NC, AT, PERRL, moist MM Heart: RRR, no murmurs Lungs: Mild bilateral wheezing and rhonchi. No crackles or distress. Abdomen: soft, NT, BS+. Extremities: normal appearance, no edema. Has multiple erythematous rash over the bilateral extremity. ICE Score: No data found. Baseline ICE Score: CRS and ICANS Grading: No data found. Lab/Radiology/Diagnostic Review: CBC: Recent Labs Lab Units 08/24/19 0445 WBC K/cumm 13.9* HEMOGLOBIN g/dL 12.5* HEMATOCRIT % 37.5* MCV fL 105.3* MCH pg 35.1* MCHC g/dL 33.3 RDW CV % 16.4* RDWSD fL 63.6* MPV fL 10.9 NEUTROS ABS K/cumm 9.4* CMP: Recent Labs Lab Units 08/24/19 1138 08/24/19 0445 SODIUM mmol/L -- -- 138 POTASSIUM PLASMA mmol/L -- -- 4.6 CO2 mmol/L -- -- 31 BUN SERUM mg/dL -- -- 32* GLUCOSE mg/dL -- -- 192 POC GLUCOSE MONITOR mg/dL 294* < > -- CREATININE mg/dL -- -- 0.68* CALCIUM mg/dL -- -- 9.0 CHLORIDE mmol/L -- -- 99 ALBUMIN g/dL -- -- 3.4* AST Units/L -- -- 57* ALT Units/L -- -- 141* ALK PHOS Units/L -- -- 118 BILIRUBIN TOTAL mg/dL -- -- 0.4 TOTAL PROTEIN g/dL -- -- 5.9* ANIONGAP mmol/L -- -- 8 < > = values in this interval not displayed. LDH: Recent Labs Lab Units 08/24/19 0445 LACTATE DEHYDROGENASE (LDH) Units/L 718* Uric Acid: Recent Labs Lab Units 08/24/19 0445 URIC ACID mg/dL 4.9 Tacrolimus level: Recent Labs Lab Units 08/23/19 1604 TACRO RANDOM ng/mL <1.0 Sirolimus level: Cyclosporine level: PT: Recent Labs Lab Units 08/24/19 0445 PROTIME (PT) sec 10.5 PTT: Recent Labs Lab Units 08/24/19 0445 APTT sec 24.9* Assessment/Plan Acute respiratory failure - most likely COPD exacerbation 2/2 Rhino/entero virus. - Ddx potential GVHD w pulmonary involvement vs other respiratory infection - Recently admitted to OSH with similar symptoms. Now with new O2 requirement. - TTE (11/2018) EF 50%, no signs of CHF or valve disease. CT chest with contrast shows mild central bronchial thickening which is unchanged from prior examination. ?? Plan: - Continue solumedrol 60 IV daily; change to pred 80mg tomorrow - Start spiriva; albuterol PRN. Continue home advair. - Wean O2 as tolerated - Pulm toilet ?? GVHD with eyes, GI, and skin - continue cellcept 1 g BID and tacrolimus 0.5 every other day. - on prednisone 40 at home; today is day 3 solumedrol 60 IV daily; change to prednisone 80mg tomorrow for 5 days of increased steroids - cont eye drops ?? Acute Myeloid Leukemia, in remission - Induction with 7+3 and HiDAC consolidation x3 s/p decitabine maintenance on the [facility] 15053 protocol. - Relapsed disease, status post an allogeneic transplant with busulfan and Cytoxan on the [facility] allogeneic study with his sister, 08/27 match; with day 0 on 11/09/2009. - Currently in remission. Follows with Dr. Del Valle - On tacro ?? Diabetes Mellitus - On basaglar 30 units AM and novolog 10 units TID with meals and SSI at home - was initiated on lower dose of insulin in hospital but had difficulty controlling his BS due to steroids. - Cont lantus 30 units and scheduled mealtime insulin of 10 units with SSI. ?? Hyperlipidemia - continue home atorvastatin ?? Diabetic neuropathy - continue home gabapentin ?? Tobacco abuse - nicotine patch - tobacco cessation ?? Osteopenia - continue home vitamin D and dietary calcium ?? History of DVT - Cont Xarelto ?? 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 No Advance Directive Patient would like information;Information provided Prior Level of Functioning Durable Medical Equipment Oxygen;Other (Comment) (Nebulizer, home O2(2-3L) provided by [facility]) Living Arrangement House;Lives with someone Behavior Oriented Income Information Income Source Other (Comment) (Disabled) Referral To Financial Resources (Insurance verification) Potential Discharge Needs Discharge Potential To be determined Anticipated discharge level of care Return Home Dialysis No Psychiatric services No Communications Fiduciary Responsibility Patient/Designated decision maker was informed of [facility] fiduciary relationship as necessary Impression/Problem: 53 Year old male with history of Acute Myeloid Leukemia , S/P Allogeneic Transplant(11/09/2009) admitted for further evaluation and treatment of shortness of breath Additional Information/Options Discussed Goals includes: Collaboration with patient/family, clinical team to identify discharge needs to assure interventions completed for safe discharge Insurance verified as:Pending verification PCP Verified:Yes Admission source: Clinic Base on a comprehensive family assessment, assistance with instrumental activities of daily living after discharge will be provided by SO. Through the course of our work I determined that SO possesses the skill and ability to provide and monitor the care of the patient when he returns home.SO has the capacity to provide/monitor/arrange for the care of the patient. Finally, we determined that SO has the knowledge of available resourcesand that combining them with their existing resources will suffice to sustain and care for the patient when he returns home. The treatment team is aware of this information. All are in agreement withthe aftercare plan. * Renaldo Montoya MD - 08/23/2019 1:51 PM CDT BMT Progress Note BMT Day: +3574 days s/p allo SCT. Chief Complaint: Patient is a 53 y.o. male with chief complaint of SOB. Subjective The patient was seen and examined today. Reports continued SOB, cough, runny nose. Feels very hungry, since was made NPO for elevated BS by the MD overnight (continued to snack overnight). Active Treatment & Therapy Plans for Brady Jones Robert does not have any active plans of the following types: Oncology Chemotherapy Treatment, Oncology Treatment (2), Oncology Treatment (3), Oncology Supportive Care, Specialty Infusion Treatment, Blood Products, BMT, Hematology Allergies Allergen Reactions ??? Adhesive Redness Current Facility-Administered Medications: ??? acetaminophen (TYLENOL) tablet 650 mg, 650 mg, oral, Q4H PRN, Rossi Shen MD ??? acetaminophen (TYLENOL) tablet 650 mg, 650 mg, oral, Q6H PRN, Rossi Shen MD ??? acyclovir (ZOVIRAX) capsule 400 mg, 400 mg, oral, Q8H, Rossi Shen MD, 400 mg at 08/23/19 1114 ??? albuterol HFA (PROVENTIL HFA,VENTOLIN HFA,PROAIR HFA) 90 mcg/actuation inhaler 2 puff, 2 puff, inhalation, Q4H PRN, Josué Del Valle MD PhD, 2 puff at 08/23/19637 ? ? aluminum & magnesium mwfkvjjrt-waxsqdrarex-tinqsqtattvlfgf-lidocaine (MAGIC MOUTHWASH) suspension 1-1-1, 15 mL, swish & swallow, QID PRN, Rossi Shen MD ??? atorvastatin (LIPITOR) tablet 40 mg, 40 mg, oral, Daily, Rossi Shen MD, 40 mg at 08/23/19926 ??? bacitracin-polymyxin B (POLYSPORIN) 500-10,000 unit/gram ointment tube, , topical, Q4H PRN, Rossi Shen MD ??? camphor-menthol (SARNA) 0.5-0.5 % lotion, , topical, Q2H PRN, Rossi Shen MD ??? dextrose (GLUTOSE) 40 % gel 15 g, 15 g, oral, Q15 Min PRN OR dextrose (D10W) 10% bolus 250 mL, 250 mL, intravenous, Q15 Min PRN, Rossi Shen MD ??? fluticasone propion-salmeterol (ADVAIR DISKUS) 100-50 mcg/dose diskus inhaler 1 puff, 1 puff, inhalation, BID, Josué Del Valle MD PhD, 1 puff at 08/23/19927 ??? furosemide (LASIX) tablet 20 mg, 20 mg, oral, Daily, Rossi Shen MD, 20 mg at 08/23/19926 ??? glucagon injection 1 mg, 1 mg, intramuscular, Q30 Min PRN, Rossi Shen MD ??? guaiFENesin ER (MUCINEX) extended release tablet 600 mg, 600 mg, oral, BID, Heath John MD, 600 mg at 08/23/19926 ??? heparin 10 unit/mL flush 20-50 Units, 2-5 mL, intra-catheter, PRN, Rossi Shen MD ??? heparin 10 unit/mL flush 50 Units, 5 mL, intra-catheter, Q12H ROSA MARIA, Rossi Shen MD ??? [START ON 08/24/2019] insulin glargine (LANTUS) injection 30 Units, 30 Units, subcutaneous, QAM,Renaldo Montoya MD ??? insulin lispro (HumaLOG) injection 1-3 Units, 1-3 Units, subcutaneous, Nightly, Rossi Shen MD ??? insulin lispro (HumaLOG) injection 1-5 Units, 1-5 Units, subcutaneous, TID with meals, Rossi Shen MD, 1 Units at 08/23/19 1344 ??? insulin lispro (HumaLOG) injection 10 Units, 10 Units, subcutaneous, TID with meals, Renaldo Montoya MD, 10 Units at 08/23/19 1345 ??? loperamide (IMODIUM) capsule 2 mg, 2 mg, oral, Q1H PRN, Rossi Shen MD ??? magnesium sulfate 4 g/100 mL in water (premix) 4 g, 4 g, intravenous, Q4H PRN, Rossi Shen MD ??? magnesium sulfate 6 g in sodium chloride 0.9% 250 mL IVPB, 6 g, intravenous, Q4H PRN, Rossi Shen MD ??? methylPREDNISolone sodium succinate (SOLU-medrol) preservative free injection 60 mg, 60 mg, intravenous, Q24H ROSA MARIA, Rossi Shen MD, 60 mg at 08/23/19926 ??? montelukast (SINGULAIR) tablet 10 mg, 10 mg, oral, Nightly, Rossi Shen MD, 10 mg at 08/22/192031 ??? morphine injection 2 mg, 2 mg, intravenous, Once, Rossi Shen MD ??? mycophenolate mofetil (CELLCEPT) tablet 1,000 mg, 1,000 mg, oral, BID, Rossi Shen MD, 1,000 mg at 08/23/19926 ??? nicotine (NICODERM CQ) 21 mg patch 24 hour 1 patch, 1 patch, transdermal, Daily, Rossi Shen MD, Last Rate: 0 mL/hr at 08/23/19 0845, 1 patch at 08/23/19 0929 ??? ofloxacin (OCUFLOX) 0.3 % ophthalmic solution 1 drop, 1 drop, each eye, BID, Rossi Shen MD, 1 drop at 08/23/19 0934 ??? oxyCODONE (ROXICODONE) tablet 5 mg, 5 mg, oral, Q4H PRN, Rossi Shen MD, 5 mg at 08/22/19 2348 ??? polyvinyl alcohol (LIQUIFILM TEARS) 1.4 % ophthalmic solution 2 drop, 2 drop, each eye, Q4H PRN, Rossi Shen MD ??? potassium chloride 40 mEq/520 mL in sodium chloride 0.9% (premix) 40 mEq, 40 mEq, intravenous, Q4H PRN, Rossi Shen MD ??? potassium chloride ER (KLOR-CON) extended release tablet 40 mEq, 40 mEq, oral, Q4H PRN, Nan Shen MD ??? pramoxine (TRONOLANE) 1% cream, , rectal, TID PRN, Rossi Shen MD ??? rivaroxaban (XARELTO) tablet 20 mg, 20 mg, oral, Daily with dinner, Rossi Shen MD, 20 mg at 08/22/192031 ??? sodium chloride (OCEAN) 0.65 % nasal spray 2 spray, 2 spray, each nostril, Q1H PRN, Rossi Shen MD ? ? sodium chloride 0.9 % irrigation 30 mL, 30 mL, swish & spit, QID, Rossi Shen MD ??? sodium chloride 0.9% flush 0.5-20 mL, 0.5-20 mL, intra-catheter, Q8H ROSA MARIA, Rossi Shen MD, 10 mL at 08/22/19 1755 ??? sodium chloride 0.9% flush 0.5-20 mL, 0.5-20 mL, intra-catheter, PRN, Rossi Shen MD ??? sodium chloride 0.9% infusion, 30 mL/hr, intravenous, Continuous PRN, Rossi Shen MD ??? sodium chloride 0.9% IVPB 0-250 mL, 0-250 mL, intravenous, PRN, Rossi Shen MD ??? [START ON 08/24/2019] sulfamethoxazole-trimethoprim (BACTRIM DS) 800-160 mg per tablet 160 mg oftrimethoprim, 160 mg of trimethoprim, oral, Once per day on Sat, Rossi Shen MD ??? tacrolimus (PROGRAF) capsule 0.5 mg, 0.5 mg, oral, Every other day, Rossi Shen MD ??? white petrolatum-mineral oil (EUCERIN) cream, , topical, Q2H PRN, Rossi Shen MD Objective Vitals: 24hr Min/Max: Temp Min: 36.4 ??C (97.5 ??F) Max: 36.8 ??C (98.2 ??F) Pulse Min: 73 Max: 98 BP Min: 120/75 Max: 150/79 Resp Min: 18 Max: 18 SpO2 Min: 91 % Max: 99 % Most Recent : Vitals: 08/23/19 1217 BP: 126/71 BP Location: Left arm Patient Position: Lying Pulse: 98 Resp: 18 Temp: 36.6 ??C (97.9 ??F) TempSrc: Oral SpO2: 91% Weight: I/O last 2 completed shifts: In: 970 [P.O.:960; I.V.:10] Out: - Physical exam: General: alert, oriented x3. Disheveled, sickly appearing male, who is sitting by the side of the bed and is in moderate respiratory distress. HEENT: NC, AT, PERRL, moist MM Heart: RRR, no murmurs Lungs: patient has bilateral diminished to prolonged expiratory breath sounds and intermittent wheezing. Mild conversational dyspnea. Abdomen: soft, NT, BS+. Has rounded abdomen, most likely from chronic steroid use. Extremities: normal appearance, no edema. Has multiple erythematous rash over the bilateral extremity. ICE Score: No data found. Baseline ICE Score: CRS and ICANS Grading: No data found. Lab/Radiology/Diagnostic Review: Mild hyperkalemia, elevated blood glucose and elevated LFTs. Has neutrophilic leucocytosis with mild thrombocytopenia. 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 CBC: Recent Labs Lab Units 08/23/19 0413 WBC K/cumm 15.9* HEMOGLOBIN g/dL 12.3* HEMATOCRIT % 36.7* MCV fL 106.1* MCH pg 35.5* MCHC g/dL 33.5 RDW CV % 16.5* RDWSD fL 63.3* MPV fL 11.7 NEUTROS ABS K/cumm 13.4* CMP: Recent Labs Lab Units 08/23/19 1242 08/23/19 0413 08/22/19 1619 SODIUM mmol/L -- -- 133* -- 134* POTASSIUM PLASMA mmol/L -- -- 5.0* -- 5.9* CO2 mmol/L -- -- 31 -- 31 BUN SERUM mg/dL -- -- 29* -- 30* GLUCOSE mg/dL -- -- 525* -- 441* POC GLUCOSE MONITOR mg/dL 173 < > -- < > -- CREATININE mg/dL -- -- 0.64* -- 0.61* CALCIUM mg/dL -- -- 8.8 -- 9.1 CHLORIDE mmol/L -- -- 94* -- 97 ALBUMIN g/dL -- -- -- -- 3.5 AST Units/L -- -- -- -- 84* ALT Units/L -- -- -- -- 197* ALK PHOS Units/L -- -- -- -- 137* BILIRUBIN TOTAL mg/dL -- -- -- -- 0.4 TOTAL PROTEIN g/dL -- -- -- -- 6.4* ANIONGAP mmol/L -- -- 8 -- 6 < > = values in this interval not displayed. LDH: Uric Acid: Recent Labs Lab Units 08/22/19 161 URIC ACID mg/dL 4.0 Tacrolimus level: Sirolimus level: Cyclosporine level: PT: Recent Labs Lab Units 08/22/19 161 PROTIME (PT) sec 8.8 PTT: Recent Labs Lab Units 08/22/19 161 APTT sec 24.6* Assessment/Plan Acute respiratory failure - most likely COPD exacerbation 2/2 Rhino/entero virus. - Ddx potential GVHD w pulmonary involvement vs other respiratory infection - Recently admitted to OSH with similar symptoms. Now with new O2 requirement. - TTE (11/2018) EF 50%, no signs of CHF or valve disease. CT chest with contrast shows mild central bronchial thickening which is unchanged from prior examination. ?? Plan: - Continue solumedrol 60 IV daily - Duo nebs QID. Continue home advair. - Wean O2 as tolerated - Pulm toilette ?? GVHD with eyes, GI, and skin - continue cellcept 1 g BID and tacrolimus 0.5 every other day. Check tacro level - on prednisone 40, switch to solumedrol 60 IV daily for now - cont eye drops ?? Acute Myeloid Leukemia, in remission - Induction with 7+3 and HiDAC consolidation x3 s/p decitabine maintenance on the [facility] 30245 protocol. - Relapsed disease, status post an allogeneic transplant with busulfan and Cytoxan on the AMD allogeneic study with his sister, 08/27 match; with day 0 on 11/09/2009. - Currently in remission. Follows with Dr. Del Valle - On tacro ?? Diabetes Mellitus - On basaglar 30 units AM and novolog 10 units TID with meals and SSI at home - was initiated on lower dose of insulin in hospital but had difficulty controlling his BS. Will increase lantus to 30 units and schedule mealtime insulin of 10 units and continue SSI. ?? Hyperlipidemia - continue home atorvastatin ?? Diabetic neuropathy - continue home gabapentin ?? Tobacco abuse - offered nicotine patch - tobacco cessation ?? Osteopenia - continue home vitamin D and dietary calcium ?? History of DVT - Cont Xarelto ?? Code Status:??Full Code Diet:??Adult Diet Regular DVT Prophylaxis:??lovenox 40mg D/W Dr. Kofi Montoya MD Hospitalist [phone] * Katelyn Payton NP - 08/22/2019 11:23 AM CDT [facility] Patient is a 53 y.o. male with chief complaint of shortness of breath. 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 GVHD of eyes, mouth, skin and lungs. Patient reports breathing difficulties over the last month. Recently discharged from outside hospital a couple of days ago. Now on oxygen 1-2 liters while at rest and 3 upon exertion. Productive cough of yellow/green sputum. States he was given Solumedrol and antibiotics while hospitalized. Feels blah . Palpitations and lightheadedness at times upon exertion. Reports lower extremity edema. Denies fever. States he has been talking to oncology office and was told he needed to be evaluated for GVHD. 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 TREATMENT HISTORY: 1. Induction with 7+3 and HiDAC consolidation x3. 2. Decitabine maintenance on the [facility] [address] protocol. 3. Relapsed disease, status post [facility]. 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 TRANSPLANT HISTORY: Status post an allogeneic transplant with busulfan and Cytoxan on the [facility] allogeneic study with hissister, 08/27 match; with day 0 on 11/09/2009. Past Medical History: Diagnosis Date ??? Personal [...] 01/28/2013 ??? [place] TUBE PLACEMENT N/A 01/28/2013 Medications Prior to Admission Medication Sig Dispense Refill Last Dose ??? acyclovir (ZOVIRAX) 400 mg tablet TAKE 1 TABLET BY MOUTH EVERY 8 HOURS 270 tablet 1 Taking ??? ADVAIR DISKUS 100-50 mcg/dose diskus inhaler INHALE 1 DOSE BY MOUTH TWICE DAILY 60 each 3 Taking ??? atorvastatin (LIPITOR) 40 mg tablet Take 1 tablet (40 mg total) by mouth daily 30 tablet 6 Taking ??? BASAGLAR KWIKPEN U-100 INSULIN 100 unit/mL (3 mL) insulin pen INJECT 30 UNITS Q AM 5 pen 3 ??? blood glucose diagnostic strip Check blood sugar tid 100 each 4 Taking ??? blood-glucose meter misc 1 Device 3 (three) times a day 1 each 0 Taking ??? ergocalciferol (VITAMIN D) 50,000 unit capsule Take 1 capsule (50,000 Units total) by mouth once a week 4 capsule 11 Taking ??? furosemide (LASIX) 20 mg tablet Take 1 tablet (20 mg total) by mouth daily As needed. 30 tablet0 ??? gabapentin (NEURONTIN) 100 mg capsule TAKE 1 PO QD 30 capsule 3 ??? gabapentin (NEURONTIN) 300 mg capsule TAKE 1 PO QD 30 capsule 3 ??? glucagon (glucagon) 1 mg kit USE DIRECTED AT SCHOOL AND HOME Taking ??? HUMALOG KWIKPEN INSULIN 100 unit/mL insulin pen INJECT 10 -16 UNITS BEFORE MEALS. 5 pen 3 ??? insulin NPH (HumuLIN N, NovoLIN N) 100 unit/mL (3 mL) insulin pen Inject 15 Units under the skin daily with breakfast Take with prednisone 4 pen 3 Taking ??? levoFLOXacin (LEVAQUIN) 750 mg tablet Take 750 mg by mouth nightly at bedtime 0 Taking ??? magnesium oxide (MAG-OX) 400 mg (241.3 mg elemental magnesium) tablet TAKE 1 TABLET BY MOUTH ONCE DAILY IN THE MORNING 0 Taking ??? metFORMIN XR (GLUCOPHAGE XR) 500 mg 24 hr tablet Take 2 tablets (1,000 mg total) by mouth 2 (two) times a day 120 tablet 3 Taking ??? montelukast (SINGULAIR) 10 mg tablet Take 1 tablet (10 mg total) by mouth nightly. 30 tablet 11Taking ??? mycophenolate mofetil (CELLCEPT) 500 mg tablet TAKE 2 TABLETS BY MOUTH TWICE DAILY 180 tablet 3Taking ??? NOVOLOG FLEXPEN U-100 INSULIN 100 unit/mL (3 mL) insulin pen INJECT 9 UNITS SUBCUTANEOUSLY THREE TIMES DAILY BEFORE MEAL(S) 0 Taking ??? ofloxacin (OCUFLOX) 0.3 % ophthalmic solution Administer 1 drop into both eyes 2 (two) times a day 5 mL 1 ??? pen needle, diabetic 31 gauge x 5/16 needle Use to inject 1-4 times daily as directed. 100 each 11 Taking ??? predniSONE (DELTASONE) 10 mg tablet TAKE 4 TABLETS BY MOUTH ONCE DAILY 120 tablet 3 Taking ??? predniSONE (DELTASONE) 5 mg tablet TAKE 8 TABLETS BY MOUTH ONCE DAILY 240 tablet 3 Taking ??? sildenafil, antihypertensive, (REVATIO) 20 mg tablet TAKE ONE TO FIVE TABLETS BY MOUTH DAILY ASNEEDED 12 Taking ??? sodium chloride-sodium bicarbonate (NEILMED SINUS RINSE, AYR) packet with rinse device Administer 240 mL (1 packet total) into each nostril daily as needed (sinus congestion). 1 each 0 Taking ??? sulfamethoxazole-trimethoprim (BACTRIM DS,SEPTRA DS) 800-160 mg per tablet TAKE 1 TABLET BY MOUTH TWICE DAILY ON Saturday. 6 Taking ??? tacrolimus (PROGRAF) 0.5 mg capsule Take 1 capsule (0.5 mg total) by mouth every other day. Taking ??? tacrolimus (PROGRAF) 0.5 mg capsule TAKE 1 CAPSULE BY MOUTH ONCE DAILY 60 capsule 6 Taking ??? VENTOLIN HFA 90 mcg/actuation inhaler INHALE 1 TO 2 PUFFS BY MOUTH EVERY 4 HOURS NEEDED FOR SHORTNESS OF BREATH 1 Inhaler 3 Taking ??? XARELTO 20 mg tablet TAKE 1 TABLET BY MOUTH ONCE DAILY WITH FOOD 60 tablet 1 Taking Current Facility-Administered Medications Medication Dose Route Frequency Provider Last Rate Last Dose ??? sodium chloride 0.9% flush 10 mL 10 mL intravenous PRN Josué Del Valle MD PhD Allergies Allergen Reactions ??? Adhesive Redness Social History Socioeconomic History ??? Marital status: [...] file Gets together: Not on file Attends voodoo service: Not on file Active member of [...] alcohol use : (Added by TW Conv) Family History Problem Relation Age of Onset ??? Heart disease Mother Family history of cardiac disorder - (Added by TW Conv) Review of Systems Constitutional: Positive for activity change. HENT: Negative. Eyes: Negative. Respiratory: Positive for cough and shortness of breath. Cardiovascular: Positive for leg swelling. Lightheadedness and palpitations at times during exertion. Gastrointestinal: Negative. Last bowel movement was this morning. Genitourinary: Negative. Musculoskeletal: Negative. States back pain from coughing. Skin: Negative. Neurological: Neuropathy feet. Hematological: Bruises/bleeds easily. Psychiatric/Behavioral: Negative. Physical Exam Constitutional: He is oriented to person, place, and time. He appears well- developed and well-nourished. HENT: Head: Normocephalic and atraumatic. Mouth/Throat: Oropharynx is clear and moist. Eyes: Pupils are equal, round, and reactive to light. Conjunctivae and EOM are normal. Neck: Normal range of motion. Neck supple. Cardiovascular: Regular rhythm, normal heart sounds and intact distal pulses. Slightly tachycardic at 101. 2-3+ lower extremity edema. Pulmonary/Chest: Effort normal and breath sounds normal. Abdominal: Rounded, soft, bowel sounds present. Musculoskeletal: Generalized weakness. Neurological: He is alert and oriented to person, place, and time. Skin: Skin is warm and dry. Capillary refill takes less than 2 seconds. Bruising noted bilateral arms. Psychiatric: He has a normal mood and affect. His behavior is normal. Vitals reviewed. Objective Vitals: Arrival Vitals [08/22/19 1108] Temp 36.9 ??C (98.4 ??F) Pulse 101 Resp 20 BP 123/77 SpO2 96 % Temp src Oral Heart Rate Source Patient Position BP Location Left arm FiO2 (%) Most Recent : Vitals: 08/22/19 1108 BP: 123/77 Pulse: 101 Resp: 20 Temp: 36.9 ??C (98.4 ??F) SpO2: 96% Lab/Radiology/Diagnostic Review: Laboratory review: Lab results in the last 12 hours: Recent Results (from the past 12 hour(s)) CBC with auto differential Collection Time: 08/22/19 11:39 AM Result Value Ref Range WBC 18.0 (H) 3.8 - 9.9 K/cumm Hgb 12.1 (L) 13.0 - 17.5 g/dL Hct 36.7 (L) 38.9 - 50.3 % Plt 151 150 - 400 K/cumm MPV 11.2 9.1 - 12.3 fL RBC 3.47 (L) 4.30 - 5.80 M/cumm MCV 105.8 (H) 81.3 - 96.4 fL MCH 34.9 (H) 27.1 - 33.3 pg MCHC 33.0 32.3 - 35.7 g/dL RDW CV 16.8 (H) 11.1 - 14.9 % RDW SD 65.1 (H) 35.7 - 48.1 fL NRBC abs 1.64 (H) 0.00 - 0.01 K/cumm Comprehensive metabolic panel Collection Time: 08/22/19 11:39 AM Result Value Ref Range Sodium 140 135 - 145 mmol/L Potassium, pl 4.7 3.3 - 4.9 mmol/L Chloride 100 97 - 110 mmol/L CO2 32 22 - 32 mmol/L Anion gap 8 2 - 15 mmol/L BUN 33 (H) 8 - 25 mg/dL Creatinine 0.70 (L) 0.80 - 1.30 mg/dL Glucose 254 (H) 70 - 199 mg/dL Calcium 9.6 8.5 - 10.3 mg/dL Bilirubin, total 0.3 0.1 - 1.2 mg/dL Protein, pl 6.2 (L) 6.5 - 8.5 g/dL Albumin 3.5 3.5 - 5.0 g/dL Alk phos 143 (H) 40 - 130 Units/L ALT 202 (H) 7 - 55 Units/L AST 82 (H) 10 - 50 Units/L Magnesium Collection Time: 08/22/19 11:39 AM Result Value Ref Range Magnesium 1.9 1.4 - 2.5 mg/dL Phosphorus Collection Time: 08/22/19 11:39 AM Result Value Ref Range Phosphorus, pl 3.7 2.3 - 4.5 mg/dL Influenza A/B and RSV PCR Nasopharyngeal Collection Time: 08/22/19 11:39 AM Result Value Ref Range Influenza A RNA Not Detected Not Detected Influenza B RNA Not Detected Not Detected RSV RNA Not Detected Not Detected Differential, auto Collection Time: 08/22/19 11:39 AM Result Value Ref Range Neutrophil abs 15.8 (H) 1.7 - 6.5 K/cumm Imm gran abs 0.6 (H) 0.0 - 0.1 K/cumm Lymphocyte abs 0.6 (L) 0.8 - 3.3 K/cumm Monocyte abs 1.0 (H) 0.2 - 0.8 K/cumm Eosinophil abs 0.0 0.0 - 0.5 K/cumm Basophil abs 0.0 0.0 - 0.1 K/cumm Neutrophil pct 87.9 % Imm gran pct 3.2 % Lymphocyte pct 3.3 % Monocyte pct 5.4 % Eosinophil pct 0.0 % Basophil pct 0.2 % Assessment and plan: 1. Shortness of breath: GVHD/infection/viral. Routine labs obtained. Blood cultures x 2: results pending. Chest X-ray: awaiting results. Multiplex: awaiting results. Influenza: negative. Discussion: Patient being admitted for evaluation of shortness of breath/rule out GVHD. Room 9814. Report given to Dr. Shen. documented in this encounter H&P Notes * Brendan Kirby MD PhD - 08/23/2019 12:24 PM CDT BMT History & Physical BMT Day: Chief Complaint: Patient is a 53 y.o. male with chief complaint of shortness of breath. 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 Of note, he was recently admitted to OSH for 9 days for similar symptoms. He was treated with antibiotics and solumedrol. Discharged on prednisone taper, currently on 40 mg. Currently requiring supplemental O2. He called oncology clinic this morning to report worsening dyspnea and was instructed to go to the cancercare clinic to be admitted for further work up of potential lung involvement of GVHD. Cancer clinic: - Induction with 7+3 and HiDAC consolidation x3. - Decitabine maintenance on the CALGB 42829 protocol. - Relapsed disease, status post an allogeneic transplant with busulfan and Cytoxan on the [facility] allogeneic study with his sister, 08/27 match; with day 0 on 11/09/2009. Currently in remission.?? - Follows with Dr. Del Valle. Most recent appt 05/29 but pt left before being seen Cancer Staging No matching staging information was found for the patient. No history exists. Active Treatment & Therapy Plans for Brady Jones Robert does not have any active plans of the following types: Oncology Chemotherapy Treatment, Oncology Treatment (2), Oncology Treatment (3), Oncology Supportive Care, Specialty Infusion Treatment, Blood Products, BMT, Hematology Past Medical History: Diagnosis Date ??? Personal [...] 01/28/2013 Allergies Allergen Reactions ??? Adhesive Redness Medications Prior to Admission Medication Sig Dispense Refill Last Dose ??? acyclovir (ZOVIRAX) 400 mg tablet TAKE 1 TABLET BY MOUTH EVERY 8 HOURS 270 tablet 1 08/22/2019 at Unknown time ??? ADVAIR DISKUS 100-50 mcg/dose diskus inhaler INHALE 1 DOSE BY MOUTH TWICE DAILY 60 each 3 08/22/2019 at Unknown time ??? atorvastatin (LIPITOR) 40 mg tablet Take 1 tablet (40 mg total) by mouth daily 30 tablet 6 08/22/2019 at Unknown time ??? BASAGLAR KWIKPEN U-100 INSULIN 100 unit/mL (3 mL) insulin pen INJECT 30 UNITS Q AM 5 pen 3 08/22/2019 at Unknown time ??? blood glucose diagnostic strip Check blood sugar tid 100 each 4 08/22/2019 at Unknown time ??? blood-glucose meter misc 1 Device 3 (three) times a day 1 each 0 08/22/2019 at Unknown time ??? ergocalciferol (VITAMIN D) 50,000 unit capsule Take 1 capsule (50,000 Units total) by mouth once a week 4 capsule 11 Past Week at Unknown time ??? furosemide (LASIX) 20 mg tablet Take 1 tablet (20 mg total) by mouth daily As needed. 30 tablet0 08/22/2019 at Unknown time ??? gabapentin (NEURONTIN) 100 mg capsule TAKE 1 PO QD 30 capsule 3 08/22/2019 at Unknown time ??? gabapentin (NEURONTIN) 300 mg capsule TAKE 1 PO QD 30 capsule 3 08/22/2019 at Unknown time ??? glucagon (glucagon) 1 mg kit USE DIRECTED AT SCHOOL AND HOME More than a month at Unknown time ??? HUMALOG KWIKPEN INSULIN 100 unit/mL insulin pen INJECT 10 -16 UNITS BEFORE MEALS. 5 pen 3 08/22/2019 at Unknown time ??? insulin NPH (HumuLIN N, NovoLIN N) 100 unit/mL (3 mL) insulin pen Inject 15 Units under the skin daily with breakfast Take with prednisone 4 pen 3 08/22/2019 at Unknown time ??? levoFLOXacin (LEVAQUIN) 750 mg tablet Take 750 mg by mouth nightly at bedtime 0 More than a month at Unknown time ??? magnesium oxide (MAG-OX) 400 mg (241.3 mg elemental magnesium) tablet TAKE 1 TABLET BY MOUTH ONCE DAILY IN THE MORNING 0 08/22/2019 at Unknown time ??? metFORMIN XR (GLUCOPHAGE XR) 500 mg 24 hr tablet Take 2 tablets (1,000 mg total) by mouth 2 (two) times a day 120 tablet 3 Past Month at Unknown time ??? montelukast (SINGULAIR) 10 mg tablet Take 1 tablet (10 mg total) by mouth nightly. 30 tablet 1110 at Unknown time ??? mycophenolate mofetil (CELLCEPT) 500 mg tablet TAKE 2 TABLETS BY MOUTH TWICE DAILY 180 tablet 310 at Unknown time ??? NOVOLOG FLEXPEN U-100 INSULIN 100 unit/mL (3 mL) insulin pen INJECT 9 UNITS SUBCUTANEOUSLY THREE TIMES DAILY BEFORE MEAL(S) 0 08/22/2019 at Unknown time ??? ofloxacin (OCUFLOX) 0.3 % ophthalmic solution Administer 1 drop into both eyes 2 (two) times a day 5 mL 1 08/22/2019 at Unknown time ??? pen needle, diabetic 31 gauge x 5/16 needle Use to inject 1-4 times daily as directed. 100 each 11 08/22/2019 at Unknown time ??? predniSONE (DELTASONE) 10 mg tablet TAKE 4 TABLETS BY MOUTH ONCE DAILY 120 tablet 3 08/22/2019 at Unknown time ??? predniSONE (DELTASONE) 5 mg tablet TAKE 8 TABLETS BY MOUTH ONCE DAILY 240 tablet 3 08/22/2019 atUnknown time ??? sildenafil, antihypertensive, (REVATIO) 20 mg tablet TAKE ONE TO FIVE TABLETS BY MOUTH DAILY ASNEEDED 12 Taking ??? sodium chloride-sodium bicarbonate (NEILMED SINUS RINSE, AYR) packet with rinse device Administer 240 mL (1 packet total) into each nostril daily as needed (sinus congestion). 1 each 0 08/22/2019 at Unknown time ??? sulfamethoxazole-trimethoprim (BACTRIM DS,SEPTRA DS) 800-160 mg per tablet TAKE 1 TABLET BY MOUTH TWICE DAILY ON Saturday. 6 08/22/2019 at Unknown time ??? tacrolimus (PROGRAF) 0.5 mg capsule Take 1 capsule (0.5 mg total) by mouth every other day. 08/22/2019 at Unknown time ??? VENTOLIN HFA 90 mcg/actuation inhaler INHALE 1 TO 2 PUFFS BY MOUTH EVERY 4 HOURS NEEDED FOR SHORTNESS OF BREATH 1 Inhaler 3 08/22/2019 at Unknown time ??? XARELTO 20 mg tablet TAKE 1 TABLET BY MOUTH ONCE DAILY WITH FOOD 60 tablet 1 08/22/2019 at Unknown time Current Facility-Administered Medications: ??? acetaminophen (TYLENOL) tablet 650 mg, 650 mg, oral, Q4H PRN, Rossi Shen MD ??? acetaminophen (TYLENOL) tablet 650 mg, 650 mg, oral, Q6H PRN, Rossi Shen MD ??? acyclovir (ZOVIRAX) capsule 400 mg, 400 mg, oral, Q8H, Rossi Shen MD, 400 mg at 08/23/19 1600 ??? albuterol HFA (PROVENTIL HFA,VENTOLIN HFA,PROAIR HFA) 90 mcg/actuation inhaler 2 puff, 2 puff, inhalation, Q4H PRN, Josué Del Valle MD PhD, 2 puff at 08/23/19 1928 ? ? aluminum & magnesium dgrjkdjpv-iesbmduoqol-ziyetcevspxakfs-lidocaine (MAGIC MOUTHWASH) suspension 1-1-1, 15 mL, swish & swallow, QID PRN, Rossi Shen MD ??? atorvastatin (LIPITOR) tablet 40 mg, 40 mg, oral, Daily, Rossi Shen MD, 40 mg at 08/23/19 0927 ??? bacitracin-polymyxin B (POLYSPORIN) 500-10,000 unit/gram ointment tube, , topical, Q4H PRN, Rossi Shen MD ??? camphor-menthol (SARNA) 0.5-0.5 % lotion, , topical, Q2H PRN, Rossi Shen MD ??? dextrose (GLUTOSE) 40 % gel 15 g, 15 g, oral, Q15 Min PRN OR dextrose (D10W) 10% bolus 250 mL, 250 mL, intravenous, Q15 Min PRN, Rossi Shen MD ??? fluticasone propion-salmeterol (ADVAIR DISKUS) 100-50 mcg/dose diskus inhaler 1 puff, 1 puff, inhalation, BID, Josué Del Valle MD PhD, 1 puff at 08/23/19927 ??? furosemide (LASIX) tablet 20 mg, 20 mg, oral, Daily, Rossi Shen MD, 20 mg at 08/23/19926 ??? glucagon injection 1 mg, 1 mg, intramuscular, Q30 Min PRN, Rossi Shen MD ??? guaiFENesin ER (MUCINEX) extended release tablet 600 mg, 600 mg, oral, BID, Heath John MD, 600 mg at 08/23/19926 ??? heparin 10 unit/mL flush 20-50 Units, 2-5 mL, intra-catheter, PRN, Rossi Shen MD ??? heparin 10 unit/mL flush 50 Units, 5 mL, intra-catheter, Q12H ROSA MARIA, Rossi Shen MD ??? [START ON 08/24/2019] insulin glargine (LANTUS) injection 30 Units, 30 Units, subcutaneous, QAM,Renaldo Montoya MD ??? insulin lispro (HumaLOG) injection 1-3 Units, 1-3 Units, subcutaneous, Nightly, Rossi Shen MD ??? insulin lispro (HumaLOG) injection 1-5 Units, 1-5 Units, subcutaneous, TID with meals, Rossi Shen MD, 5 Units at 08/23/191720 ??? insulin lispro (HumaLOG) injection 10 Units, 10 Units, subcutaneous, TID with meals, Renaldo Montoya MD, 10 Units at 08/23/191720 ??? loperamide (IMODIUM) capsule 2 mg, 2 mg, oral, Q1H PRN, Rossi Shen MD ??? magnesium sulfate 4 g/100 mL in water (premix) 4 g, 4 g, intravenous, Q4H PRN, Rossi Shen MD ??? magnesium sulfate 6 g in sodium chloride 0.9% 250 mL IVPB, 6 g, intravenous, Q4H PRN, Rossi Shen MD ??? methylPREDNISolone sodium succinate (SOLU-medrol) preservative free injection 60 mg, 60 mg, intravenous, Q24H ROSA MARIA, Rossi Shen MD, 60 mg at 08/23/19926 ??? montelukast (SINGULAIR) tablet 10 mg, 10 mg, oral, Nightly, Rossi Shen MD, 10 mg at 08/22/192031 ??? mycophenolate mofetil (CELLCEPT) tablet 1,000 mg, 1,000 mg, oral, BID, Rossi Shen MD, 1,000 mg at 08/23/19926 ??? nicotine (NICODERM CQ) 21 mg patch 24 hour 1 patch, 1 patch, transdermal, Daily, Rossi Shen MD, Last Rate: 0 mL/hr at 08/23/19 0845, 1 patch at 08/23/19928 ??? ofloxacin (OCUFLOX) 0.3 % ophthalmic solution 1 drop, 1 drop, each eye, BID, Rossi Shen MD, 1 drop at 08/23/19933 ??? oxyCODONE (ROXICODONE) tablet 5 mg, 5 mg, oral, Q4H PRN, Rossi Shen MD, 5 mg at 08/23/191721 ??? polyvinyl alcohol (LIQUIFILM TEARS) 1.4 % ophthalmic solution 2 drop, 2 drop, each eye, Q4H PRN, Rossi Shen MD ??? potassium chloride 40 mEq/520 mL in sodium chloride 0.9% (premix) 40 mEq, 40 mEq, intravenous, Q4H PRN, Rossi Shen MD ??? potassium chloride ER (KLOR-CON) extended release tablet 40 mEq, 40 mEq, oral, Q4H PRN, Nan Shen MD ??? pramoxine (TRONOLANE) 1% cream, , rectal, TID PRN, Rossi Shen MD ??? rivaroxaban (XARELTO) tablet 20 mg, 20 mg, oral, Daily with dinner, Rossi Shen MD, 20 mg at 08/23/191720 ??? sodium chloride (OCEAN) 0.65 % nasal spray 2 spray, 2 spray, each nostril, Q1H PRN, Rossi Shen MD ? ? sodium chloride 0.9 % irrigation 30 mL, 30 mL, swish & spit, QID, Rossi Shen MD ??? sodium chloride 0.9% flush 0.5-20 mL, 0.5-20 mL, intra-catheter, Q8H ROSA MARIA, Rossi Shen MD, 10 mL at 08/22/19 1755 ??? sodium chloride 0.9% flush 0.5-20 mL, 0.5-20 mL, intra-catheter, PRN, Rossi Shen MD ??? sodium chloride 0.9% infusion, 30 mL/hr, intravenous, Continuous PRN, Rossi Shen MD ??? sodium chloride 0.9% IVPB 0-250 mL, 0-250 mL, intravenous, PRN, Rossi Shen MD ??? [START ON 08/24/2019] sulfamethoxazole-trimethoprim (BACTRIM DS) 800-160 mg per tablet 160 mg oftrimethoprim, 160 mg of trimethoprim, oral, Once per day on Sat, Rossi Shen MD ??? tacrolimus (PROGRAF) capsule 0.5 mg, 0.5 mg, oral, Every other day, Rossi Shen MD ??? white petrolatum-mineral oil (EUCERIN) cream, , topical, Q2H PRN, Rossi Shen MD Family History Problem Relation Age of Onset ??? Heart disease Mother Family history of cardiac disorder - (Added by TW Elliot) Social History Tobacco Use ??? Smoking status: Current Every Day Smoker ??? Smokeless tobacco: Never Used ??? Tobacco comment: Pt not interested in smoking cessation program Substance Use Topics ??? Alcohol use: Not on file Review of Systems Review of systems per HPI and otherwise all systems are negative All other review of systems is negative Objective Vitals: Arrival Vitals [08/22/19 1108] Temp 36.9 ??C (98.4 ??F) Pulse 101 Resp 20 BP 123/77 SpO2 96 % Temp src Oral Heart Rate Source Patient Position BP Location Left arm FiO2 (%) 24hr Min/Max: Temp Min: 36.5 ??C (97.7 ??F) Max: 37 ??C (98.6 ??F) Pulse Min: 78 Max: 98 BP Min: 120/75 Max: 139/74 Resp Min: 18 Max: 20 SpO2 Min: 91 % Max: 95 % Most Recent : Vitals: 08/23/191929 BP: 139/74 BP Location: Left arm Patient Position: Lying Pulse: 94 Resp: 20 Temp: 36.5 ??C (97.7 ??F) TempSrc: Oral SpO2: 94% Weight: I/O last 2 completed shifts: In: 3160 [P.O.:3160] Out: 350 [Urine:350] Physical exam: General: Appears older than stated age. Skin: hyperpigmented lesions, chronic. Dry lesion in L leg HEENT: normocephalic, PERRLA, EOMI, no mucositis CV: RRR. No m/g/r, normal S1S2 Lungs: unlabored breathing, dry cough, mild wheezing, coarse breathing sounds throughout, no crackles. NC on. Abdomen: Soft, mildly distended/obese, soft Extremities: Atraumatic, acyanotic, no TTP, 3+ BLE pitting edema Neuro: AAOx3, CN II-XI grossly intact, normal speech Psych: Appropriate mood, affect, and judgement Lab/Radiology/Diagnostic Review: Laboratory review: reviewed the laboratory results Pathology review: I have reviewed the results Imaging review: I have reviewed the results CBC: Recent Labs Lab Units 08/23/193 WBC K/cumm 15.9* HEMOGLOBIN g/dL 12.3* HEMATOCRIT % 36.7* MCV fL 106.1* MCH pg 35.5* MCHC g/dL 33.5 RDW CV % 16.5* RDWSD fL 63.3* MPV fL 11.7 NEUTROS ABS K/cumm 13.4* CMP: Recent Labs Lab Units 08/23/19 1629 08/23/19 0413 08/22/19 1619 SODIUM mmol/L -- -- 133* -- 134* POTASSIUM PLASMA mmol/L -- -- 5.0* -- 5.9* CO2 mmol/L -- -- 31 -- 31 BUN SERUM mg/dL -- -- 29* -- 30* GLUCOSE mg/dL -- -- 525* -- 441* POC GLUCOSE MONITOR mg/dL 264* < > -- < > -- CREATININE mg/dL -- -- 0.64* -- 0.61* CALCIUM mg/dL -- -- 8.8 -- 9.1 CHLORIDE mmol/L -- -- 94* -- 97 ALBUMIN g/dL -- -- -- -- 3.5 AST Units/L -- -- -- -- 84* ALT Units/L -- -- -- -- 197* ALK PHOS Units/L -- -- -- -- 137* BILIRUBIN TOTAL mg/dL -- -- -- -- 0.4 TOTAL PROTEIN g/dL -- -- -- -- 6.4* ANIONGAP mmol/L -- -- 8 -- 6 < > = values in this interval not displayed. LDH: Uric Acid: Recent Labs Lab Units 08/22/19 1619 URIC ACID mg/dL 4.0 Tacrolimus level: Sirolimus level: Cyclosporine level: PT: Recent Labs Lab Units 08/22/19 1619 PROTIME (PT) sec 8.8 PTT: Recent Labs Lab Units 08/22/19 1619 APTT sec 24.6* Imaging: XR Chest Pa Lateral 2 Views Narrative: EXAMINATION: 2 view chest radiograph Impression: Comparison radiograph is dated 08/22/2019. The lungs are hyper expanded. Small amount of fluid is seen within the right oblique fissure. There has been interval reabsorption of the right pleural effusion compared to the prior examination, with improvement in the right middle lobe infiltrate. Lungs are again noted to be hyperexpanded. Atherosclerotic changes noted in the aortic arch. Electronically signed by: Azeem Plaza M.D. Assessment/Plan No problem-specific Assessment & Plan notes found for this encounter. Acute respiratory failure - Ddx potential GVHD w pulmonary involvement vs respiratory infection vs other - Recently admitted to OSH with similar symptoms. Now with new O2 requirement. 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 Check tacro level - on prednisone 40, switch to solumedrol 60 IV daily for now - cont eye drops Acute Myeloid Leukemia, in remission - Induction with 7+3 and HiDAC consolidation x3 s/p decitabine maintenance on the CALGB 28573 protocol. - Relapsed disease, status post an allogeneic transplant with busulfan and Cytoxan on the [facility] allogeneic study with his sister, 08/27 match; with day 0 on 11/09/2009. - Currently in remission. Follows with Dr. Del Valle - On tacro Diabetes Mellitus - On basaglar 30 units AM and novolog 10 units TID with meals - Will decrease to lantus 20 units AM and lispro 7 units with meals TID + SSI Hyperlipidemia - continue home atorvastatin Diabetic neuropathy - continue home gabapentin COPD - cont home advair - albuterol nebs prn - solumedrol Tobacco abuse - offered nicotine patch - tobacco cessation Osteopenia - continue home vitamin D and dietary calcium History of DVT - Cont Xarelto * Rossi Cleary MD - 08/22/2019 1:04 PM CDT Oncology Hospitalist History & Physical BMT Day: Chief Complaint: Patient is a 53 y.o. male with chief complaint of shortness of breath. 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 Of note, he was recently admitted to OSH for 9 days for similar symptoms. He was treated with antibiotics and solumedrol. Discharged on prednisone taper, currently on 40 mg. Currently requiring supplemental O2. He called oncology clinic this morning to report worsening dyspnea and was instructed to go to the cancercare clinic to be admitted for further work up of potential lung involvement of GVHD. Cancer clinic: - Induction with 7+3 and HiDAC consolidation x3. - Decitabine maintenance on the CALGB 97312 protocol. - Relapsed disease, status post an allogeneic transplant with busulfan and Cytoxan on the [facility] allogeneic study with his sister, 08/27 match; with day 0 on 11/09/2009. Currently in remission.?? - Follows with Dr. Del Valle. Most recent appt 05/29 but pt left before being seen Cancer Staging No matching staging information was found for the patient. No history exists. Active Treatment & Therapy Plans for Brady Jones Robert does not have any active plans of the following types: Oncology Chemotherapy Treatment, Oncology Treatment (2), Oncology Treatment (3), Oncology Supportive Care, Specialty Infusion Treatment, Blood Products, BMT, Hematology Past Medical History: Diagnosis Date ??? Personal [...] 01/28/2013 Allergies Allergen Reactions ??? Adhesive Redness Medications Prior to Admission Medication Sig Dispense Refill Last Dose ??? acyclovir (ZOVIRAX) 400 mg tablet TAKE 1 TABLET BY MOUTH EVERY 8 HOURS 270 tablet 1 Taking ??? ADVAIR DISKUS 100-50 mcg/dose diskus inhaler INHALE 1 DOSE BY MOUTH TWICE DAILY 60 each 3 Taking ??? atorvastatin (LIPITOR) 40 mg tablet Take 1 tablet (40 mg total) by mouth daily 30 tablet 6 Taking ??? BASAGLAR KWIKPEN U-100 INSULIN 100 unit/mL (3 mL) insulin pen INJECT 30 UNITS Q AM 5 pen 3 ??? blood glucose diagnostic strip Check blood sugar tid 100 each 4 Taking ??? blood-glucose meter misc 1 Device 3 (three) times a day 1 each 0 Taking ??? ergocalciferol (VITAMIN D) 50,000 unit capsule Take 1 capsule (50,000 Units total) by mouth once a week 4 capsule 11 Taking ??? furosemide (LASIX) 20 mg tablet Take 1 tablet (20 mg total) by mouth daily As needed. 30 tablet0 ??? gabapentin (NEURONTIN) 100 mg capsule TAKE 1 PO QD 30 capsule 3 ??? gabapentin (NEURONTIN) 300 mg capsule TAKE 1 PO QD 30 capsule 3 ??? glucagon (glucagon) 1 mg kit USE DIRECTED AT SCHOOL AND HOME Taking ??? HUMALOG KWIKPEN INSULIN 100 unit/mL insulin pen INJECT 10 -16 UNITS BEFORE MEALS. 5 pen 3 ??? insulin NPH (HumuLIN N, NovoLIN N) 100 unit/mL (3 mL) insulin pen Inject 15 Units under the skin daily with breakfast Take with prednisone 4 pen 3 Taking ??? levoFLOXacin (LEVAQUIN) 750 mg tablet Take 750 mg by mouth nightly at bedtime 0 Taking ??? magnesium oxide (MAG-OX) 400 mg (241.3 mg elemental magnesium) tablet TAKE 1 TABLET BY MOUTH ONCE DAILY IN THE MORNING 0 Taking ??? metFORMIN XR (GLUCOPHAGE XR) 500 mg 24 hr tablet Take 2 tablets (1,000 mg total) by mouth 2 (two) times a day 120 tablet 3 Taking ??? montelukast (SINGULAIR) 10 mg tablet Take 1 tablet (10 mg total) by mouth nightly. 30 tablet 11Taking ??? mycophenolate mofetil (CELLCEPT) 500 mg tablet TAKE 2 TABLETS BY MOUTH TWICE DAILY 180 tablet 3Taking ??? NOVOLOG FLEXPEN U-100 INSULIN 100 unit/mL (3 mL) insulin pen INJECT 9 UNITS SUBCUTANEOUSLY THREE TIMES DAILY BEFORE MEAL(S) 0 Taking ??? ofloxacin (OCUFLOX) 0.3 % ophthalmic solution Administer 1 drop into both eyes 2 (two) times a day 5 mL 1 ??? pen needle, diabetic 31 gauge x 5/16 needle Use to inject 1-4 times daily as directed. 100 each 11 Taking ??? predniSONE (DELTASONE) 10 mg tablet TAKE 4 TABLETS BY MOUTH ONCE DAILY 120 tablet 3 Taking ??? predniSONE (DELTASONE) 5 mg tablet TAKE 8 TABLETS BY MOUTH ONCE DAILY 240 tablet 3 Taking ??? sildenafil, antihypertensive, (REVATIO) 20 mg tablet TAKE ONE TO FIVE TABLETS BY MOUTH DAILY ASNEEDED 12 Taking ??? sodium chloride-sodium bicarbonate (NEILMED SINUS RINSE, AYR) packet with rinse device Administer 240 mL (1 packet total) into each nostril daily as needed (sinus congestion). 1 each 0 Taking ??? sulfamethoxazole-trimethoprim (BACTRIM DS,SEPTRA DS) 800-160 mg per tablet TAKE 1 TABLET BY MOUTH TWICE DAILY ON Saturday. 6 Taking ??? tacrolimus (PROGRAF) 0.5 mg capsule Take 1 capsule (0.5 mg total) by mouth every other day. Taking ??? tacrolimus (PROGRAF) 0.5 mg capsule TAKE 1 CAPSULE BY MOUTH ONCE DAILY 60 capsule 6 Taking ??? VENTOLIN HFA 90 mcg/actuation inhaler INHALE 1 TO 2 PUFFS BY MOUTH EVERY 4 HOURS NEEDED FOR SHORTNESS OF BREATH 1 Inhaler 3 Taking ??? XARELTO 20 mg tablet TAKE 1 TABLET BY MOUTH ONCE DAILY WITH FOOD 60 tablet 1 Taking Current Facility-Administered Medications: ??? sodium chloride 0.9% flush 10 mL, 10 mL, intravenous, PRN, Josué Del Valle MD PhD, 10 mL at 08/22/19 1200 Family History Problem Relation Age of Onset ??? Heart disease Mother Family history of cardiac disorder - (Added by TW Conv) Social History Tobacco Use ??? Smoking status: Current Every Day Smoker ??? Smokeless tobacco: Never Used ??? Tobacco comment: Pt not interested in smoking cessation program Substance Use Topics ??? Alcohol use: Not on file Review of Systems Review of systems per HPI and otherwise all systems are negative All other review of systems is negative Objective Vitals: Arrival Vitals [08/22/19 1108] Temp 36.9 ??C (98.4 ??F) Pulse 101 Resp 20 BP 123/77 SpO2 96 % Temp src Oral Heart Rate Source Patient Position BP Location Left arm FiO2 (%) 24hr Min/Max: Temp Min: 36.9 ??C (98.4 ??F) Max: 36.9 ??C (98.4 ??F) Pulse Min: 101 Max: 101 BP Min: 123/77 Max: 123/77 Resp Min: 20 Max: 20 SpO2 Min: 96 % Max: 96 % Most Recent : Vitals: 08/22/19 1108 BP: 123/77 BP Location: Left arm Pulse: 101 Resp: 20 Temp: 36.9 ??C (98.4 ??F) TempSrc: Oral SpO2: 96% Weight: 82.2 kg (181 lb 4.8 oz) No intake/output data recorded. Physical exam: General: Appears older than stated age. Skin: hyperpigmented lesions, chronic. Dry lesion in L leg HEENT: normocephalic, PERRLA, EOMI, no mucositis CV: RRR. No m/g/r, normal S1S2 Lungs: unlabored breathing, dry cough, mild wheezing, coarse breathing sounds throughout, no crackles. NC on. Abdomen: Soft, mildly distended/obese, soft Extremities: Atraumatic, acyanotic, no TTP, 3+ BLE pitting edema Neuro: AAOx3, CN II-XI grossly intact, normal speech Psych: Appropriate mood, affect, and judgement Lab/Radiology/Diagnostic Review: Laboratory review: reviewed the laboratory results Pathology review: I have reviewed the results Imaging review: I have reviewed the results CBC: Recent Labs Lab Units 08/22/19 1139 WBC K/cumm 18.0* HEMOGLOBIN g/dL 12.1* HEMATOCRIT % 36.7* MCV fL 105.8* MCH pg 34.9* MCHC g/dL 33.0 RDW CV % 16.8* RDWSD fL 65.1* MPV fL 11.2 NEUTROS ABS K/cumm 15.8* CMP: LDH: Uric Acid: Tacrolimus level: Sirolimus level: Cyclosporine level: PT: PTT: Imaging: Dexa Axial Skeleton Bone Density 1 or 2 Site Patient Name: Brady Jones Date of : 1965 Date of scan: 08/07/2019 Bone mineral density was performed on a HoloVideum Discovery Densitometer. Machine Cross-calibration and Precision studies have been performed with a least significant change of 0.024 g/cm at the spine, 0.020 g/cm at the total proximal femur, and 0.014g/cm at the forearm. HISTORY: This is a 53 y.o. male with a history of bone marrow transplant, leukemia, low bone mass and vitamin D deficiency. Currently on treatment with 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, calcium, glucocorticoids and vitamin D. History of tobacco use: Social History Tobacco Use Smoking Status Current Every Day Smoker Tobacco Comment Pt not interested in smoking cessation program INDICATIONS: Treatment monitoring, vitamin D deficiency, currently on 40 mg of glucocorticoids for the past 10 years and history of low bone mass. FINDINGS: [...] there has been no significant change noted. SUMMARY: Bone mineral density shows evidence of low bone mass in the hip and moderately increased fracture risk. There has been significant increase in bone mineral density since previous measurement. ADDITIONAL COMMENTS: If the patient has a history of a fragility fracture, a fracture that occurred with trauma equivalent to a fall from a standing position or less, then the diagnosis is osteoporosis. The risk of osteoporotic fracture increases approximately 2-fold for each 1.0 SD decrease in T-score. However, low bone density is not the only risk factor for fracture. Other factors include patient???s age, previous osteoporotic fracture or prior fracture as an adult, loss of height of greater than 2 inches, corticosteroid use, risk of falling, risk of injury, and family history of osteoporosis. Not everyone with low bone mineral density has osteoporosis. Osteomalacia and other metabolic bone disorders should also be considered where indicated. Patients who have osteoporosis should be evaluated for specific diseases and conditions (secondary causes) that may cause or contribute to bone loss. Consider repeating this study in 1-2 years to assess the patient???s response to treatment, if applicable. It is recommended that any follow up exam be performed on the same machine if possible for better accuracy. DEFINITIONS: Osteoporosis: BMD at or below -2.5 T-score Osteopenia (low bone mass): BMD between -1.0 and-2.5 T-score. The Bone Health Program adopts the following WHO definitions: Osteoporosis: BMD below -2.5 S.D. as compared to the BMD of young normal adults. Osteopenia or Low Bone Mass: BMD between -1.0 and -2.5 S.D. below the BMD of young normal adults. Normal Bone Density: BMD equal to or greater than -1.0 S.D. as compared to the BMD of young normal adults. References: 1) Jonathan, Annals of Internal Medicine 114(11): 919-923 (1990) 2) Jenn, Lancet 341 : 72-75 (1992) 3) Adarsh, Journal Bone and Mineral Research 7(6): 633-8 (1991) 4) Roblero, Journal Bone and Mineral Research 8(10):1227-33 (1992) The history and data sections of the bone mineral density scan were prepared by Kait Helms)(Casi)(), CBDT who is accredited by the International Society of Clinical Densitometry. The overall patient assessment and scan interpretation were performed by Jamie Porter MD who is certified by the International Society of Clinical Densitometry. [id number] Assessment/Plan No problem-specific Assessment & Plan notes found for this encounter. Acute respiratory failure - Ddx potential GVHD w pulmonary involvement vs respiratory infection vs other - Recently admitted to OSH with similar symptoms. Now with new O2 requirement. 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 Check tacro level - on prednisone 40, switch to solumedrol 60 IV daily for now - cont eye drops Acute Myeloid Leukemia, in remission - Induction with 7+3 and HiDAC consolidation x3 s/p decitabine maintenance on the CALGB 26526 protocol. - Relapsed disease, status post an allogeneic transplant with busulfan and Cytoxan on the AMD allogeneic study with his sister, 08/27 match; with day 0 on 11/09/2009. - Currently in remission. Follows with Dr. Del Valle - On tacro Diabetes Mellitus - On basaglar 30 units AM and novolog 10 units TID with meals - Will decrease to lantus 20 units AM and lispro 7 units with meals TID + SSI Hyperlipidemia - continue home atorvastatin Diabetic neuropathy - continue home gabapentin COPD - cont home advair - albuterol nebs prn - solumedrol Tobacco abuse - offered nicotine patch - tobacco cessation Osteopenia - continue home vitamin D and dietary calcium History of DVT - Cont Xarelto Code Status: Full Code Diet: Adult Diet Regular DVT Prophylaxis: lovenox 40mg Rossi Stein MD BMT Oncology Hospitalist [phone] documented in this encounter Consult Notes * Zamzam Pena, RD - 08/23/2019 3:49 PM CDTAssociated Order(s): IP CONSULT TO NUTRITION SERVICES Nutrition Screen Note Pt. Screened for nutritional assessment secondary to consult. Pt admitted with SOB. 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 Past Medical History: Diagnosis Date ??? Personal [...] 01/28/2013 ??? [place] TUBE PLACEMENT N/A 01/28/2013 Anthropometrics Weight: 82.5 kg (181 lb 14.1 oz) Admission Weight : 82.5 kg Weight Change: 0.26 kg (0.57 lbs) IBW/kg (Calculated) : 75.3 kg Height: 177.8 cm (5' 10 ) Weight in (lb) to have BMI = 25: 173.9 Dietary Orders (From admission, onward) Start Ordered 08/23/19 0955 Adult Diet Restricted; Consistent Carbohydrate Diet effective now Question Answer Comment ([facility]) Diet type Restricted Diabetic: Consistent Carbohydrate 08/23/19 0954 Assessment / Impression: Pt reports he continues to eat well consuming most of his meals, no n/v, no reported weight loss, does endorse weight gain from eating well and being in hospitals without normal exercise. Pt does not need nutrition supplements at this time. Noted A1C was 14.7, however pt isnot interested in following diabetic diet. Pt reports if he makes his fettjordyni cristela he will goto town on it, knowing he should not. Encouraged diet compliance but pt kept saying he eats what hewants. Pt not receptive to diet education at this time, please re-consult if that changes. Floor RDto follow. Weekend documented in this encounter Nursing Notes * Yolie Corral RN - 08/25/2019 4:32 PM CDT Pt. Discharged per wheelchair with assistance of RN. [facility] van here to transport patient tohis home. Pt. Without acute distress noted & no complaints voiced. * Fadia Toledo RN - 08/23/2019 2:00 AM CDT 08/23/19 0200 Intake Percent Snack Eaten (%) 100 (6 packages of crackers, peanut butter, 1 can of tomato soup) Patient educated on risk of hyperglycemia with eating snacks at night. Patient's blood glucose before bed was 306. RN highly discouraged patient from eating but patient ate despite RN education. * Nancy Jones RN - 08/22/2019 4:07 PM CDT Pt with AML admitted to [facility] to be seen by SECURITY SYSTEM ENGINEER due to SOB. 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 Pt was discharged from OSH 2 days ago and was started on home oxygen. Labs, blood cultures X 2, SECURITY SYSTEM ENGINEER swabs, and chest Xray done. Patient admitted to hospital. Report given to Bonnie CONNELL on 9799. Pt transferred to 9814 via wheelchair accompanied by mala RN. documented in this encounter Miscellaneous Notes * Plan of Care - Giovanni Hanna RN - 08/25/2019 2:57 PM CDT Referral received from direct care nurse for assistance with discharge transportation. Discharge transportation arranged with [place] of [employer] @[phone] and Carmen of [employer] @ [phone] for tracking#[id number] after 1600 today. Will fax PCS to [employer] @ [phone] after completed. * Hospital Course - Mari Singh MD - 08/25/2019 1:06 PM CDT Acute respiratory failure Patient presented with worsening shortness of breath, cough, and an increased oxygen requirement. Prior PFTs showed and FEV1:FVC of 30 as well as an FEV1 of 30, consistent with very severe COPD. He was recently discharged from an OSH with 1-2L O2 at night and 3-4L O2 with exertion. On admission, hewas positive for rhino/entero virus, which likely triggered a COPD exacerbation. He had a chest CT showing mild central bronchial thickening consistent with bronchitis, which was essentially unchanged from prior examination. He was started on duonebs and IV methylpred. He was transitioned to prednisone 80mg, which will be tapered back to 40mg on 08/27/19. He was continued on advair and prescribed spiriva at discharge. With these interventions, his symptoms significantly improved, and he did notrequire oxygen at rest. He was hemodynamically stable during his stay. ?? 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 Steroids were managed as above. ?? Acute Myeloid Leukemia, in remission He had induction with 7+3 and HiDAC consolidation x3??s/p decitabine maintenance on the [facility] [id number]. He has relapsed disease,??status post an allogeneic transplant with busulfan and Cytoxan on the AMD allogeneic study with his sister, 08/27 match; with day 0 on 11/09/2009.??He is currentlyin remission and follows with Dr. Del Valle. He was continued on his prophylactic acyclovir and bactrim. ?? Diabetes Mellitus His home regimen is basaglar 30 units AM and lispro 10 units TID with meals. His glucose was initially difficult to control given the increased steroid doses. His sugar was eventually controlled withlantus 35U, lispro 11U with meals, and a SSI. His lantus was increased to 35U and he was continued on his home scheduled mealtime insulin and SSI at discharge. The patient was counseled to monitor his blood glucose closely as his insulin requirement will change when his steroids are decreased. He had no episodes of hypoglycemia during his stay. ?? Hyperlipidemia Continued home atorvastatin. ?? Diabetic neuropathy Continued home gabapentin. ?? Tobacco abuse Prescribed nicotine patch. ?? Osteopenia Continued home vitamin D and dietary calcium. ?? History of DVT Continued Xarelto. * Plan of Care - Yolie Corral RN - 08/25/2019 10:36 AM CDT Goals:Blood glucose will remain WNL. * Plan of Care - Mike Zayas RN - 08/24/2019 10:30 PM CDT Problem: Activity: Goal: Ability to implement measures to reduce episodes of fatigue will improve Outcome: Progressing Problem: Fluid Volume: Goal: Will maintain adequate fluid volume Outcome: Progressing Problem: Medication: Goal: Compliance with prescribed medication regimen will improve Outcome: Progressing Problem: Respiratory: Goal: Ability to maintain adequate ventilation will improve Outcome: Progressing Problem: Health Behavior: Goal: Understanding of discharge needs will improve Outcome: Progressing Goals: Clinical Goals for the Shift: control glc lvl Summary: Pt is hyperglycemic but controlled with subcutaneous insulin (see MAR). * Provider Query - Ana Lilia Escobar - 08/24/2019 12:22 PM CDT Based on the [facility] approved criteria for respiratory failure (see below), please verify if this documented diagnosis is still accurate. Indicate Present on Admission status. ___ Acute Respiratory Failure ruled out ___ Acute Respiratory Failure present and treated, document additional clinical indicators in provider response ___Chronic Respiratory Failure only ___ Other, specify below Clinical Indicators/Treatments: 08/22/19 SpO2 94-99% on 2L NC 08/22 RR 18 08/22 PN Patient reports breathing difficulties over the last month. Recently discharged from outside hospital a couple of days ago. Now on oxygen 1-2 liters while at rest and 3 upon exertion. 08/22 H/P Physical exam - Lungs unlabored breathing, dry cough, mild wheezing, coarse breathing sounds throughout, no crackles. NC on. Dx of COPD exacerbation and Rhino/entero virus 08/22 CT of chest - 1. No new focal consolidation or diffuse interstitial lung disease. ?? 2. Mild central bronchial thickening, most prominent in the right middle and left lower lobes, unchanged to slightly increased when compared to prior from October 2018, likely representing bronchitis. ?? Treatment: Low flow supplemental oxygen less than 40% FiO2; CXR/CT imaging; Advair 1 puff BID (Inhal); Mucinex 600mg PO BID, Lasix 20mg PO daily. Provider Response: Acute Respiratory Failure present and treated Respiratory Failure Screening Criteria Acute Respiratory Failure PATIENT DOES NOT NEED TO MEET ALL CRITERIA, INTUBATION IS NOT REQUIRED. Supplemental Oxygen - New supplemental O2 greater than or equal to 40 percent (5 liters/minute per nasal cannula) or - New oxygen requirement in setting of 1 or more of the below results or vitals, Results or Vitals (1 or more of the following) ??? -pCO2 greater than 50 and pH less than 7.35 ??? -pO2 at or below 55 mmHg or SpO2 (pulse oximetry) less than 88% on RA ??? -pO2 decrease or pCO2 increase by 10 mmHg from baseline if known ??? -P/F ratio (pO2/FiO2) less than 300 Other signs and symptoms may include: - Tachypnea, dyspnea, shortness of breath, wheezing - Air hunger - Use of accessory muscles of respiration - Inability to speak in full sentences - Cyanosis or pallor - Anxiety or restlessness - Positioning of the patient???s body (for example, tripod breathing) Chronic Respiratory Failure Dependence on continuous (24 hours a day) home O2 or non-invasive mechanical ventilation (BiPAP, AVAPS, etc.) Acute on Chronic Respiratory Failure Exacerbation or decompensation of chronic respiratory failure recognized by any of the following: - pCO2 greater than 50 mmHg + pH less than 7.35 - Increase in baseline pCO2 (if known) by 10 mmHg or more - pO2 less than 55 mmHg or SpO2 less than 88% on patient???s baseline oxygen rate or higher - Worsening dyspnea requiring an increase in chronic supplemental oxygen - Greater hypoxemia (decreased pO2 or SpO2 from baseline, if known) If provider believes patient has respiratory failure in the absence of above clinical indicators, please document rationale and clinical impression in detail Respiratory Failure References - [employer] Hospitalist Aug/Sep 2013 - Coding Clinics: 3rd Q 1987, p 7 and 2nd Q 1989, p.20 - https://www.cms.gov/grsxlyxf-odi-zfumdbrcm/medicare-learning-network-mln/mlnprod ucts/downloads/dlmw-ktijhd-lvxofrc-text-only.pdf Use of terms such as likely, suspected, possible, or probable (associated with a specific diagnosisthat is being evaluated, monitored, or treated as if it exists) are acceptable and can be coded in the inpatient setting when documented at the time of discharge. This documentation will become part of the patient's medical record. Sincerely, Ana Lilia Escobar Health Information Management * Plan of Care - Yolie Corral RN - 08/24/2019 10:14 AM CDT Goals: Clinical Goals for the Shift: BG within normal limits & no injuries from falls. * Plan of Care - Fadia Toledo RN - 08/23/2019 10:14 PM CDT Problem: Activity: Goal: Ability to implement measures to reduce episodes of fatigue will improve Outcome: Progressing Problem: Fluid Volume: Goal: Will maintain adequate fluid volume Outcome: Progressing Problem: Medication: Goal: Compliance with prescribed medication regimen will improve Outcome: Progressing Problem: Respiratory: Goal: Ability to maintain adequate ventilation will improve Outcome: Progressing Problem: Health Behavior: Goal: Understanding of discharge needs will improve Outcome: Progressing Goals: Clinical Goals for the Shift: Keep blood sugar under 300 Discussed importance of glycemic control. Recommended that patient not snack all through the night to help prevent hyperglycemic events. * Plan of Care - Bonnie Tran RN - 08/23/2019 5:39 PM CDT Goals: Clinical Goals for the Shift: Contorl blood sugars/ pain, adequate I & O, stable vs and shower Summary: Pt progressing towards goals * Plan of Care - Fadia Toledo RN - 08/23/2019 1:14 AM CDT Problem: Activity: Goal: Ability to implement measures to reduce episodes of fatigue will improve Outcome: Progressing Problem: Fluid Volume: Goal: Will maintain adequate fluid volume Outcome: Progressing Problem: Medication: Goal: Compliance with prescribed medication regimen will improve Outcome: Progressing Problem: Respiratory: Goal: Ability to maintain adequate ventilation will improve Outcome: Progressing Problem: Health Behavior: Goal: Understanding of discharge needs will improve Outcome: Progressing Goals: Clinical Goals for the Shift: Keep oxygen saturation about 92% * Plan of Shannon - Fadia Toledo RN - 08/23/2019 1:14 AM CDT Problem: Activity: Goal: Ability to implement measures to reduce episodes of fatigue will improve 08/23/2019113 by Fadia Toledo RN Outcome: Progressing 08/23/2019113 by Fadia Toledo RN Outcome: Progressing Problem: Fluid Volume: Goal: Will maintain adequate fluid volume 08/23/2019113 by Fadia Toledo RN Outcome: Progressing 08/23/2019 011 by Fadia Toledo RN Outcome: Progressing Problem: Medication: Goal: Compliance with prescribed medication regimen will improve 08/23/2019113 by Fadia Toledo RN Outcome: Progressing 08/23/2019 011 by Fadia Toledo RN Outcome: Progressing Problem: Respiratory: Goal: Ability to maintain adequate ventilation will improve 08/23/2019113 by Fadia Toledo RN Outcome: Progressing 08/23/2019 0114 by Fadia Toledo RN Outcome: Progressing Problem: Health Behavior: Goal: Understanding of discharge needs will improve 08/23/2019113 by Fadia Toledo RN Outcome: Progressing 08/23/2019 011 by Fadia Toledo RN Outcome: Progressing Goals: Clinical Goals for the Shift: Keep oxygen saturation about 92% * Plan of Shannon - Paty Cummings RRT - 08/22/2019 10:04 PM CDT Pt has a strong, congested and productive cough. RT supplied pt with an Acapella for secretion clearance. Continue to follow for home regimen COPD medications. * Plan of Care - Bonnie Tran RN - 08/22/2019 6:51 PM CDT Goals: Clinical Goals for the Shift: Admit to 9800 Summary: Pt progressing t * Plan of Care - Bonnie Tran RN - 08/22/2019 6:34 PM CDT Goals: Clinical Goals for the Shift: Admit to 9800 Summary: Patient progressing towards goals documented in this encounter Plan of Treatment Scheduled Orders Name Type Priority Associated Diagnoses Orde r Schedule Urinalysis reflex to microscopic and culture Urine Microbiology STAT Lab orders - as needed, STAT collection for 1 Occurrences starting 08/22/2019 Clostridium difficile assay Stool Microbiology STAT Lab orders - as needed, STAT collection for 1 Occurrences starting 08/22/2019 documented as of this encounter Procedures Procedure Name Priority Date/Time Associated Diagnosis Comments POCT GLUCOSE DEVICE Routine 08/25/2019 1 1:47 AM CDT POCT GLUCOSE DEVICE Routine 08/25/2019 6 :37 AM CDT BMT CBC Routine 08/25/2019 3:42 AM CDT MANUAL DIFFERENTIAL Routine 08/25/2019 3 :42 AM CDT CBC WITHOUT DIFFERENTIAL Routine 08/25/2019 3:42 AM CDT PHOSPHORUS Routine 08/25/2019 3:42 AM CDT MAGNESIUM Routine 08/25/2019 3:42 AM CDT BASIC METABOLIC PANEL Routine 08/25/2019 3:42 AM CDT POCT GLUCOSE DEVICE Routine 08/24/2019 1 0:04 PM CDT POCT GLUCOSE DEVICE Routine 08/24/2019 7 :38 PM CDT POCT GLUCOSE DEVICE Routine 08/24/2019 6 :28 PM CDT POCT GLUCOSE DEVICE Routine 08/24/2019 5 :22 PM CDT POCT GLUCOSE DEVICE Routine 08/24/2019 1 1:38 AM CDT POCT GLUCOSE DEVICE Routine 08/24/2019 7 :22 AM CDT CYTOMEGALOVIRUS (CMV) DNA, QUANT GEN LAB Routine 08/24/2019 6:28 AM CDT BMT CBC Routine 08/24/2019 4:45 AM CDT MANUAL DIFFERENTIAL Routine 08/24/2019 4 :45 AM CDT APTT Routine 08/24/2019 4:45 AM CDT PROTIME-INR Routine 08/24/2019 4:45 AM CDT CBC WITHOUT DIFFERENTIAL Routine 08/24/2019 4:45 AM CDT TYPE AND SCREEN Timed 08/24/2019 4:45 AM CDT URIC ACID Timed 08/24/2019 4:45 AM CDT PHOSPHORUS Timed 08/24/2019 4:45 AM CDT MAGNESIUM Timed 08/24/2019 4:45 AM CDT LACTATE DEHYDROGENASE Timed 08/24/2019 4:45 AM CDT COMPREHENSIVE METABOLIC PANEL Timed 08/24/2019 4:45 AM CDT POCT GLUCOSE DEVICE Routine 08/23/2019 9 :59 PM CDT POCT GLUCOSE DEVICE Routine 08/23/2019 4 :29 PM CDT TACROLIMUS LEVEL, RANDOM Timed 08/23/2019 4:04 PM CDT POCT GLUCOSE DEVICE Routine 08/23/2019 1 2:42 PM CDT PEP THERAPY Routine 08/23/2019 8:00 AM CDT POCT GLUCOSE DEVICE Routine 08/23/2019 7 :56 AM CDT POCT GLUCOSE DEVICE Routine 08/23/2019 6 :14 AM CDT POCT GLUCOSE DEVICE Routine 08/23/2019 5 :01 AM CDT BMT CBC Routine 08/23/2019 4:13 AM CDT CRITICAL RESULT CALLBACK CHEMISTRY Routine 08/23/2019 4:13 AM CDT MANUAL DIFFERENTIAL Routine 08/23/2019 4 :13 AM CDT CBC WITHOUT DIFFERENTIAL Routine 08/23/2019 4:13 AM CDT PHOSPHORUS Routine 08/23/2019 4:13 AM CDT MAGNESIUM Routine 08/23/2019 4:13 AM CDT BASIC METABOLIC PANEL Routine 08/23/2019 4:13 AM CDT PEP THERAPY Routine 08/23/2019 4:00 AM CDT PEP THERAPY Routine 08/23/2019 12:01 AM CDT POCT GLUCOSE DEVICE Routine 08/22/2019 1 0:18 PM CDT PEP THERAPY Routine 08/22/2019 10:03 PM CDT POCT GLUCOSE DEVICE Routine 08/22/2019 7 :49 PM CDT POTASSIUM, WHOLE BLOOD Timed 9 6:07 PM CDT POCT GLUCOSE DEVICE Routine 08/22/2019 5 :[address] CHEST W CONTRAST ED Urgent/IP Urgent 08/22/2019 4:45 PM CDT APTT STAT 08/22/2019 4:19 PM CDT PROTIME-INR STAT 08/22/2019 4:19 PM CDT FIBRINOGEN STAT 08/22/2019 4:19 PM CDT TYPE AND SCREEN STAT 08/22/2019 4:19 PM CDT URIC ACID STAT 08/22/2019 4:19 PM CDT PHOSPHORUS STAT 08/22/2019 4:19 PM CDT MAGNESIUM STAT 08/22/2019 4:19 PM CDT COMPREHENSIVE METABOLIC PANEL STAT 08/22/2019 4:19 PM CDT XR CHEST PA LATERAL 2 VIEWS ED Urgent/IP Urgent 08/22/2019 2:20 PM CDT BLOOD CULTURE STAT 08/22/2019 11:40 AM CDT INFLUENZA A/B AND RSV PCR STAT 08/22/2019 11:39 AM CDT DIFFERENTIAL AUTO STAT 08/22/2019 11: 39 AM CDT RESPIRATORY PATHOGEN PANEL STAT 08/22/2019 11:39 AM CDT CBC WITH AUTO DIFFERENTIAL STAT 08/22/2019 11:39 AM CDT BLOOD CULTURE STAT 08/22/2019 11:39 AM CDT PHOSPHORUS STAT 08/22/2019 11:39 AM CDT MAGNESIUM STAT 08/22/2019 11:39 AM CDT COMPREHENSIVE METABOLIC PANEL STAT 08/22/2019 11:39 AM CDT documented in this encounter Results * POCT glucose (08/25/2019 11:47 AM CDT) Glucose, POC 169 70 - 199 mg/dL [facility] Blood specimen (specimen) 08/25/2019 11:47 AM CDT 08/25/2019 11:47 AM CDT us Josué Del Valle MD PhD LAB POCT ORDERABLES - DE VICE Final Result Performing Organization Address [facility] Co de Phone Number [address] [address] * (ABNORMAL) POCT glucose (08/25/2019 6:37 AM CDT) Glucose, POC 246(H) 70 - 199 mg/dL [facility] Blood specimen (specimen) 08/25/2019 6:37 AM CDT 08/25/2019 6:37 AM CDT us Josué Del Valle MD PhD LAB POCT ORDERABLES - DE VICE Final Result Performing Organization Address [facility] Co de Phone Number [address] [address] * (ABNORMAL) Manual Differential (08/25/2019 3:42 AM CDT) Differential Manual [facility] Cells Counted 114 [facility] Neutrophil abs 7.0(H) 1.7 - 6.5 K/cumm [facility] Imm gran abs 0.0 0.0 - 0.1 K/cumm [facility] Lymphocyte abs 3.4(H) 0.8 - 3.3 K/cumm [facility] Monocyte abs 0.8 0.2 - 0.8 K/cumm [facility] Neutrophil pct 62.3 % [facility] Comment: Interpretive Data Percent cell count reference ranges are not reported, since discordance with absolute values may lead to misinterpretation of CBC data. Current Interpretive Data was last revised on 2018. Lymphocyte pct 25.4 % [facility] Comment: Interpretive Data Percent cell count reference ranges are not reported, since discordance with absolute values may lead to misinterpretation of CBC data. Current Interpretive Data was last revised on 2018. Monocyte pct 7.0 % [facility] Comment: Interpretive Data Percent cell count reference ranges are not reported, since discordance with absolute values may lead to misinterpretation of CBC data. Current Interpretive Data was last revised on 2018. Variant lymph pct 5.3(H) 0.0 - 0.0 % [facility] RBC morphology Present(A) [facility] Anisocytosis Moderate(A) [facility] Poikilocytosis Slight(A) [facility] Macrocytes 8-15/HPF(A) [facility] [place] bodies Present(A) [facility] Platelet estimate Adequate [facility] Blood specimen (specimen) 08/25/2019 3:42 AM CDT 08/25/2019 3:54 AM CDT us Rossi Shen MD LAB BLOOD ORDERABLES Arun tamiko Result - Final [facility] [address] [place] [address] * (ABNORMAL) CBC without differential (08/25/2019 3:42 AM CDT) WBC 11.2(H) 3.8 - 9.9 K/cumm [facility] Hgb 13.1 13.0 - 17.5 g/dL [facility] Hct 39.5 38.9 - 50.3 % [facility] Plt 150 150 - 400 K/cumm [facility] MPV 11.6 9.1 - 12.3 fL [facility] RBC 3.80(L) 4.30 - 5.80 M/cumm [facility] MCV 103.9(H) 81.3 - 96.4 fL [facility] MCH 34.5(H) 27.1 - 33.3 pg [facility] MCHC 33.2 32.3 - 35.7 g/dL [facility] RDW CV 16.4(H) 11.1 - 14.9 % [facility] RDW SD 62.4(H) 35.7 - 48.1 fL [facility] NRBC abs 0.59(H) 0.00 - 0.01 K/cumm [facility] Blood specimen (specimen) 08/25/2019 3:42 AM CDT 08/25/2019 3:54 AM CDT Rossi Shen MD LAB BLOOD ORDERABLES Fin al Result Performing Organization Address [facility] Co de Phone Number [address] [address] * Phosphorus (08/25/2019 3:42 AM CDT) Phosphorus, pl 3.5 2.3 - 4.5 mg/dL [facility] Blood specimen (specimen) 08/25/2019 3:42 AM CDT 08/25/2019 3:54 AM CDT Rossi Shen MD LAB BLOOD ORDERABLES Fin al Result Performing Organization Address [facility] Co de Phone Number [address] [address] * Magnesium (08/25/2019 3:42 AM CDT) Magnesium 1.8 1.4 - 2.5 mg/dL [facility] Blood specimen (specimen) 08/25/2019 3:42 AM CDT 08/25/2019 3:54 AM CDT Rossi Shen MD LAB BLOOD ORDERABLES Fin al Result Performing Organization Address [facility] Co de Phone Number [address] [address] * (ABNORMAL) Basic metabolic panel (08/25/2019 3:42 AM CDT) Sodium 136 135 - 145 mmol/L [facility] Potassium, pl 5.0(H) 3.3 - 4.9 mmol/L [facility] Comment:Hemolyzed; (+++); po tassium value may be falsely elevated by as much as 0.6 - 1.0 mmol/L. Suggest redraw and reanalysis. Chloride 96(L) 97 - 110 mmol/L [facility] CO2 36(H) 22 - 32 mmol/L [facility] Anion gap 4 2 - 15 mmol/L [facility] BUN 35(H) 8 - 25 mg/dL [facility] Creatinine 0.90 0.80 - 1.30 mg/dL [facility] Glucose 228(H) 70 - 199 mg/dL [facility] Comment: Interpretive Data Fasting [...] 2017. Calcium 9.2 8.5 - 10.3 mg/dL [facility] Blood specimen (specimen) 08/25/2019 3:42 AM CDT 08/25/2019 3:54 AM CDT Narrative [facility] - 08/25/2019 5:05 AM CDT Daily except Saturday and . Morning draw. us Rossi Shen MD LAB BLOOD ORDERABLES Fin al Result [facility] [address] [place] [address] * (ABNORMAL) POCT glucose (08/24/2019 10:04 PM CDT) Glucose, POC 220(H) 70 - 199 mg/dL [facility] Blood specimen (specimen) 08/24/2019 10:04 PM CDT 08/24/2019 10:04 PM CDT Josué Del Valle MD PhD LAB POCT ORDERABLES - DE VICE Final Result Performing Organization Address [facility] Phone Number [address] [address] * (ABNORMAL) POCT glucose (08/24/2019 7:38 PM CDT) Glucose, POC 373(H) 70 - 199 mg/dL [facility] Blood specimen (specimen) 08/24/2019 7:38 PM CDT 08/24/2019 7:38 PM CDT Josué Del Valle MD PhD LAB POCT ORDERABLES - DE VICE Final Result Performing Organization Address [facility] Phone Number [address] [address] * (ABNORMAL) POCT glucose (08/24/2019 6:28 PM CDT) Glucose, POC 396(H) 70 - 199 mg/dL [facility] Blood specimen (specimen) 08/24/2019 6:28 PM CDT 08/24/2019 6:28 PM CDT Josué Del Valle MD PhD LAB POCT ORDERABLES - DE VICE Final Result Performing Organization Address [facility] Phone Number [address] [address] * (ABNORMAL) POCT glucose (08/24/2019 5:22 PM CDT) Glucose, POC 341(H) 70 - 199 mg/dL [facility] Blood specimen (specimen) 08/24/2019 5:22 PM CDT 08/24/2019 5:22 PM CDT Josué Del Valle MD PhD LAB POCT ORDERABLES - DE VICE Final Result Performing Organization Address [facility] Phone Number [address] [address] * (ABNORMAL) POCT glucose (08/24/2019 11:38 AM CDT) Glucose, POC 294(H) 70 - 199 mg/dL [facility] Blood specimen (specimen) 08/24/2019 11:38 AM CDT 08/24/2019 11:38 AM CDT Josué Del Valle MD PhD LAB POCT ORDERABLES - DE VICE Final Result Performing Organization Address [facility] Phone Number [address] [address] * (ABNORMAL) POCT glucose (08/24/2019 7:22 AM CDT) [facility] Glucose, POC 200(H) 70 - 199 mg/dL [facility] Blood specimen (specimen) 08/24/2019 7:22 AM CDT 08/24/2019 7:22 AM CDT Josué Del Valle MD PhD LAB POCT ORDERABLES - DE VICE Final Result Performing Organization Address [facility] Phone Number [address] [address] * Cytomegalovirus (CMV) DNA PCR, quantitative Blood (08/24/2019 6:28 AM CDT) [facility] CMV DNA Not Detected [facility] Comment: Interpretive Data: The quantifiable range of this assay is 137 IUnits/mL to 9,100,000 IUnits/mL (2.14 log IUnits/mL to 6.96 log IUnits/mL). Testing was performed by the [employer]MICHEL TaqMan CMV Test ([employer] Testing performed at [facility] Current interpretive data was last revised on 17. Blood specimen (specimen) 08/24/2019 6:28 AM CDT 08/24/2019 9:37 AM CDT Carlos Eduardo Bergman MD LAB MICROBIOLOGY - GENERAL ORDERABLES Final Result Performing Organization Address City/[facility] Co de Phone Number [address] [address] * Phosphorus (08/24/2019 4:45 AM CDT) Phosphorus, pl 3.3 2.3 - 4.5 mg/dL [facility] Blood specimen (specimen) 08/24/2019 4:45 AM CDT 08/24/2019 5:25 AM CDT us Josué Del Valle MD PhD LAB BLOOD ORDERABLES Fin al Result Performing Organization Address [facility] de Phone Number [address] [address] * Magnesium (08/24/2019 4:45 AM CDT) Magnesium 1.9 1.4 - 2.5 mg/dL [facility] Blood specimen (specimen) 08/24/2019 4:45 AM CDT 08/24/2019 5:25 AM CDT Josué Del Valle MD PhD LAB BLOOD ORDERABLES Fin al Result Performing Organization Address [facility] de Phone Number [address] [address] * (ABNORMAL) Manual Differential (08/24/2019 4:45 AM CDT) Differential Manual [facility] Cells Counted 115 [facility] Neutrophil abs 9.4(H) 1.7 - 6.5 K/cumm [facility] Imm gran abs 0.2(H) 0.0 - 0.1 K/cumm [facility] Lymphocyte abs 3.4(H) 0.8 - 3.3 K/cumm [facility] Monocyte abs 0.8 0.2 - 0.8 K/cumm [facility] Neutrophil pct 67.8 % [facility] Comment: Interpretive Data Percent cell count reference ranges are not reported, since discordance with absolute values may lead to misinterpretation of CBC data. Current Interpretive Data was last revised on 2018. Lymphocyte pct 19.1 % [facility] Comment: Interpretive Data Percent cell count reference ranges are not reported, since discordance with absolute values may lead to misinterpretation of CBC data. Current Interpretive Data was last revised on 2018. Monocyte pct 6.1 % [facility] Comment: Interpretive Data Percent cell count reference ranges are not reported, since discordance with absolute values may lead to misinterpretation of CBC data. Current Interpretive Data was last revised on 2018. Myelocyte pct 0.9 % [facility] Promyelocyte pct 0.9(H) 0.0 - 0.0 % [facility] Variant lymph pct 5.2(H) 0.0 - 0.0 % [facility] RBC morphology Present(A) [facility] Anisocytosis Moderate(A ) [facility] Macrocytes 8-15/HPF(A ) [facility] Platelet estimate Decreased( A) [facility] Blood specimen (specimen) 08/24/2019 4:45 AM CDT 08/24/2019 5:10 AM CDT us Rossi Shen MD LAB BLOOD ORDERABLES Arun tamiko Result - Final [facility] [address] [place] [address] * (ABNORMAL) CBC without differential (08/24/2019 4:45 AM CDT) WBC 13.9(H) 3.8 - 9.9 K/cumm [facility] Hgb 12.5(L) 13.0 - 17.5 g/dL [facility] Hct 37.5(L) 38.9 - 50.3 % [facility] Plt 137(L) 150 - 400 K/cumm [facility] MPV 10.9 9.1 - 12.3 fL [facility] RBC 3.56(L) 4.30 - 5.80 M/cumm [facility] MCV 105.3(H) 81.3 - 96.4 fL [facility] MCH 35.1(H) 27.1 - 33.3 pg [facility] MCHC 33.3 32.3 - 35.7 g/dL [facility] RDW CV 16.4(H) 11.1 - 14.9 % [facility] RDW SD 63.6(H) 35.7 - 48.1 fL [facility] NRBC abs 1.19(H) 0.00 - 0.01 K/cumm [facility] Blood specimen (specimen) 08/24/2019 4:45 AM CDT 08/24/2019 5:10 AM CDT us Rossi Shen MD LAB BLOOD ORDERABLES Fin al Result Performing Organization Address City/State/[facility] Co de Phone Number [facility] [address] [place] [address] * Protime-INR (08/24/2019 4:45 AM CDT) PT 10.5 8.6 - 13.0 sec [facility] INR 0.97 0.80 - 1.20 [facility] Comment: Interpretive Data Inpatient therapeutic ranges* Atrial fibrillation ?2.0-3.0 INR Venous thrombo-embolism ?2.0-3.0 INR Bioprosthetic heart valve ?* Mechanical heart valve, bileaflet or tilting disk,aortic position ? 2.0-3.0 INR All other,or bileaflet or tilting disk, in mitral position ? 2.5-3.5 INR *See the pharmacy resource directory (PHRED) for an updated copy of the Tool Book at [email or web address] Current Interpretive Data was last revised 2012. Blood specimen (specimen) 08/24/2019 4:45 AM CDT 08/24/2019 5:01 AM CDT Rossi Shen MD LAB BLOOD ORDERABLES Fin al Result Performing Organization Address [facility] de Phone Number [address] [address] * (ABNORMAL) aPTT (08/24/2019 4:45 AM CDT) aPTT 24.9(L) 25.0 - 37.0 sec [facility] Comment: Interpretive Data Therapeutic heparin range:60.0 - 94.0 sec based on correlation with therapeutic heparin activity range of 0.3 -0.7 Units/mL. Current interpretive data was last revised on 2011. Blood specimen (specimen) 08/24/2019 4:45 AM CDT 08/24/2019 5:01 AM CDT Rossi Shen MD LAB BLOOD ORDERABLES Fin al Result Performing Organization Address [facility] de Phone Number [address] [address] * (ABNORMAL) Lactate dehydrogenase (LD) (08/24/2019 4:45 AM CDT) Lactate dehydrogenase (LDH) 718(H) 100 - 250 Units/L [facility] Comment:Hemolyzed; result ma y be falsely elevated. Blood specimen (specimen) 08/24/2019 4:45 AM CDT 08/24/2019 5:25 AM CDT Narrative [facility] - 08/24/2019 6:21 AM CDT Saturday and only. Morning draw. Rossi Shen MD LAB BLOOD ORDERABLES Fin al Result Performing Organization Address [facility] de Phone Number [address] [address] * Uric acid (08/24/2019 4:45 AM CDT) [facility] Uric acid 4.9 3.0 - 8.0 mg/dL [facility] Blood specimen (specimen) 08/24/2019 4:45 AM CDT 08/24/2019 5:25 AM CDT [facility] - 08/24/2019 6:21 AM CDT Saturday and only. Morning draw. . Rossi Shen MD LAB BLOOD ORDERABLES Fin al Result Performing Organization Address [facility] de Phone Number [address] [address] * (ABNORMAL) Comprehensive metabolic panel (08/24/2019 4:45 AM CDT) [facility] Sodium 138 135 - 145 mmol/L [facility] Potassium, pl 4.6 3.3 - 4.9 mmol/L [facility] Comment:Hemolyzed; (++); pot assium value may be falsely elevated by as much as 0.3 - 0.5 mmol/L. Suggest redraw and reanalysis. Chloride 99 97 - 110 mmol/L [facility] CO2 31 22 - 32 mmol/L [facility] Anion gap 8 2 - 15 mmol/L [facility] BUN 32(H) 8 - 25 mg/dL [facility] Creatinine 0.68(L) 0.80 - 1.30 mg/dL [facility] Glucose 192 70 - 199 mg/dL [facility] Comment: Interpretive Data Fasting [...] Calcium 9.0 8.5 - 10.3 mg/dL [facility] Bilirubin, total 0.4 0.1 - 1.2 mg/dL [facility] Protein, pl 5.9(L) 6.5 - 8.5 g/dL [facility] Albumin 3.4(L) 3.5 - 5.0 g/dL [facility] Alk phos 118 40 - 130 Units/L [facility] ALT 141(H) 7 - 55 Units/L [facility] AST 57(H) 10 - 50 Units/L [facility] Comment:Hemolyzed; result ma y be falsely elevated. Blood specimen (specimen) 08/24/2019 4:45 AM CDT 08/24/2019 5:25 AM CDT Narrative [facility] - 08/24/2019 6:21 AM CDT Saturday and only. Morning draw. Rossi Shen MD LAB BLOOD ORDERABLES Fin al Result [facility] [address] [place] [address] * Type and screen (08/24/2019 4:45 AM CDT) Ursula, indirect Negative [facility] ABO Rh A Positive [facility] Blood specimen (specimen) 08/24/2019 4:45 AM CDT 08/24/2019 5:02 AM CDT Narrative [facility] - 08/24/2019 6:21 AM CDT Has the patient had Daratumumab (Darzalex) in the past 6 months?->Unknown Rossi Shen MD LAB BLOOD BANK TEST ORDE RABLES Final Result Performing Organization Address [facility] de Phone Number [facility] [address] [place] [address] * (ABNORMAL) POCT glucose (08/23/2019 9:59 PM CDT) Glucose, POC 261(H) 70 - 199 mg/dL [facility] Blood specimen (specimen) 08/23/2019 9:59 PM CDT 08/23/2019 9:59 PM CDT Josué Del Valle MD PhD LAB POCT ORDERABLES - DE VICE Final Result Performing Organization Address [facility] de Phone Number [address] [address] * (ABNORMAL) POCT glucose (08/23/2019 4:29 PM CDT) Glucose, POC 264(H) 70 - 199 mg/dL [facility] Blood specimen (specimen) 08/23/2019 4:29 PM CDT 08/23/2019 4:29 PM CDT Josué Del Valle MD PhD LAB POCT ORDERABLES - DE VICE Final Result Performing Organization Address [facility] Phone Number [facility] [address] [place] [address] * Tacrolimus level, random (08/23/2019 4:04 PM CDT) Tacrolimus, random <1.0 ng/mL [facility] Comment: Undetectable. ??Please verify that the correct immunosuppressant test was requested. Interpretive Data Testing performed by liquid chromatography-tandem mass spectrometry. ??Therapeutic concentrations vary depending on type of transplanted organ and time elapsed since transplant. ??Typical trough concentrations range from 5-15 ng/mL. ??This test was developed and its performance characteristics determined by the [facility] consistent with CLIA requirements. ??This test has not been cleared or approved by the [place] Food and Drug administration. ??Current interpretive data last reviewed 2019. Blood specimen (specimen) 08/23/2019 4:04 PM CDT 08/23/2019 4:19 PM CDT Renaldo Montoya MD LAB BLOOD ORDERABLES Final Re sult Performing Organization Address [facility] Co de Phone Number [address] [address] * POCT glucose (08/23/2019 12:42 PM CDT) Glucose, POC 173 70 - 199 mg/dL [facility] Blood specimen (specimen) 08/23/2019 12:42 PM CDT 08/23/2019 12:42 PM CDT Josué Del Valle MD PhD LAB POCT ORDERABLES - DE VICE Final Result Performing Organization Address [facility] de Phone Number [address] [address] * (ABNORMAL) POCT glucose (08/23/2019 7:56 AM CDT) Glucose, POC 220(H) 70 - 199 mg/dL [facility] Glucose comment 1 RN Notified [facility] Blood specimen (specimen) 08/23/2019 7:56 AM CDT 08/23/2019 7:56 AM CDT Josué Del Valle MD PhD LAB POCT ORDERABLES - DE VICE Final Result Performing Organization Address [facility] de Phone Number [address] [address] * (ABNORMAL) POCT glucose (08/23/2019 6:14 AM CDT) Glucose, POC 436(H) 70 - 199 mg/dL [facility] Blood specimen (specimen) 08/23/2019 6:14 AM CDT 08/23/2019 6:14 AM CDT us Josué Del Valle MD PhD LAB POCT ORDERABLES - DE VICE Final Result Performing Organization Address [facility] Co de Phone Number [facility] [address] [address] * (ABNORMAL) POCT glucose (08/23/2019 5:01 AM CDT) Glucose, POC 441(H) 70 - 199 mg/dL [facility] Blood specimen (specimen) 08/23/2019 5:01 AM CDT 08/23/2019 5:01 AM CDT us Josué Del Valle MD PhD LAB POCT ORDERABLES - DE VICE Final Result Performing Organization Address [facility] de Phone Number [facility] [address] [address] * Critical Result Callback Chemistry (08/23/2019 4:13 AM CDT) Date Notified [id number] [facility] Time Notified 456 [facility] TestName Glucose Z[facility] Called/Read Back Rebecca POOLE [facility] Credentials RN ZULEMA [facility] Called By bola POOLE [facility] Blood specimen (specimen) 08/23/2019 4:13 AM CDT 08/23/2019 4:23 AM CDT us Rossi Shen MD LAB BLOOD ORDERABLES Fin al Result Performing Organization Address [facility] Co de Phone Number [facility] [facility] [address] [place] [address] * (ABNORMAL) Manual Differential (08/23/2019 4:13 AM CDT) Differential Manual [facility] Cells Counted 114 [facility] Neutrophil abs 13.4(H) 1.7 - 6.5 K/cumm [facility] Imm gran abs 0.0 0.0 - 0.1 K/cumm [facility] Lymphocyte abs 1.1 0.8 - 3.3 K/cumm [facility] Monocyte abs 1.4(H) 0.2 - 0.8 K/cumm [facility] Neutrophil pct 84.2 % [facility] Comment: Interpretive Data Percent cell count reference ranges are not reported, since discordance with absolute values may lead to misinterpretation of CBC data. Current Interpretive Data was last revised on 2018. Lymphocyte pct 6.1 % [facility] Comment: Interpretive Data Percent cell count reference ranges are not reported, since discordance with absolute values may lead to misinterpretation of CBC data. Current Interpretive Data was last revised on 2018. Monocyte pct 8.8 % [facility] Comment: Interpretive Data Percent cell count reference ranges are not reported, since discordance with absolute values may lead to misinterpretation of CBC data. Current Interpretive Data was last revised on 2018. Variant lymph pct 0.9(H) 0.0 - 0.0 % [facility] RBC morphology Present(A) [facility] Anisocytosis Moderate(A ) [facility] Poikilocytosis Slight(A) [facility] Macrocytes 8-15/HPF(A ) [facility] Schistocytes 1-2/HPF(A) [facility] Target cells 3-7/HPF(A) [facility] Platelet estimate Decreased( A) [facility] Blood specimen (specimen) 08/23/2019 4:13 AM CDT 08/23/2019 4:22 AM CDT us Rossi Shen MD LAB BLOOD ORDERABLES Arun tamiko Result - Final [facility] [address] [place], [place] [id number] * (ABNORMAL) CBC without differential (08/23/2019 4:13 AM CDT) WBC 15.9(H) 3.8 - 9.9 K/cumm [facility] Hgb 12.3(L) 13.0 - 17.5 g/dL [facility] Hct 36.7(L) 38.9 - 50.3 % [facility] Plt 145(L) 150 - 400 K/cumm [facility] MPV 11.7 9.1 - 12.3 fL [facility] RBC 3.46(L) 4.30 - 5.80 M/cumm [facility] MCV 106.1(H) 81.3 - 96.4 fL [facility] MCH 35.5(H) 27.1 - 33.3 pg [facility] MCHC 33.5 32.3 - 35.7 g/dL [facility] RDW CV 16.5(H) 11.1 - 14.9 % [facility] RDW SD 63.3(H) 35.7 - 48.1 fL [facility] NRBC abs 1.56(H) 0.00 - 0.01 K/cumm [facility] Blood specimen (specimen) 08/23/2019 4:13 AM CDT 08/23/2019 4:22 AM CDT Rossi Shen MD LAB BLOOD ORDERABLES Fin al Result Performing Organization Address [facility] Co de Phone Number [address] [address] * Phosphorus (08/23/2019 4:13 AM CDT) Phosphorus, pl 3.4 2.3 - 4.5 mg/dL [facility] Blood specimen (specimen) 08/23/2019 4:13 AM CDT 08/23/2019 4:23 AM CDT Rossi Shen MD LAB BLOOD ORDERABLES Fin al Result [address] [address] * Magnesium (08/23/2019 4:13 AM CDT) Magnesium 1.6 1.4 - 2.5 mg/dL [facility] Blood specimen (specimen) 08/23/2019 4:13 AM CDT 08/23/2019 4:23 AM CDT us Rossi Shen MD LAB BLOOD ORDERABLES Fin al Result [facility] [address] [place] [address] * (ABNORMAL) Basic metabolic panel (08/23/2019 4:13 AM CDT) Sodium 133(L) 135 - 145 mmol/L [facility] Potassium, pl 5.0(H) 3.3 - 4.9 mmol/L [facility] Comment:Hemolyzed; (+++); po tassium value may be falsely elevated by as much as 0.6 - 1.0 mmol/L. Suggest redraw and reanalysis. Chloride 94(L) 97 - 110 mmol/L [facility] CO2 31 22 - 32 mmol/L [facility] Anion gap 8 2 - 15 mmol/L [facility] BUN 29(H) 8 - 25 mg/dL [facility] Creatinine 0.64(L) 0.80 - 1.30 mg/dL [facility] Glucose 525(C) 70 - 199 mg/dL [facility] Comment: Interpretive Data Fasting [...] 2017. Calcium 8.8 8.5 - 10.3 mg/dL [facility] Blood specimen (specimen) 08/23/2019 4:13 AM CDT 08/23/2019 4:23 AM CDT Narrative [facility] - 08/23/2019 4:52 AM CDT Daily except Saturday and Thursday. Morning draw. us Rossi Shen MD LAB BLOOD ORDERABLES Fin al Result Performing Organization Address [facility] Co de Phone Number [address] [address] * (ABNORMAL) POCT glucose (08/22/2019 10:18 PM CDT) Glucose, POC 306(H) 70 - 199 mg/dL [facility] Blood specimen (specimen) 08/22/2019 10:18 PM CDT 08/22/2019 10:18 PM CDT us Josué Del Valle MD PhD LAB POCT ORDERABLES - DE VICE Final Result Performing Organization Address [facility] de Phone Number [address] [address] * (ABNORMAL) POCT glucose (08/22/2019 7:49 PM CDT) Glucose, POC 284(H) 70 - 199 mg/dL [facility] Blood specimen (specimen) 08/22/2019 7:49 PM CDT 08/22/2019 7:49 PM CDT us Josué Del Valle MD PhD LAB POCT ORDERABLES - DE VICE Final Result Performing Organization Address [facility] de Phone Number [address] [address] * Potassium, whole blood (08/22/2019 6:07 PM CDT) Potassium, bld 4.2 3.3 - 4.9 mmol/L [facility] Blood specimen (specimen) 08/22/2019 6:07 PM CDT 08/22/2019 6:20 PM CDT Rossi Shen MD LAB BLOOD ORDERABLES Fin al Result Performing Organization Address [facility] Co de Phone Number [address] [address] * (ABNORMAL) POCT glucose (08/22/2019 5:02 PM CDT) Glucose, POC 389(H) 70 - 199 mg/dL [facility] Glucose comment 1 RN Notified [facility] Blood specimen (specimen) 08/22/2019 5:02 PM CDT 08/22/2019 5:02 PM CDT us Josué Del Valle MD PhD LAB POCT ORDERABLES - DE VICE Final Result [facility] [address] [place] [address] * CT Chest W Contrast (08/22/2019 4:45 PM CDT) Anatomical Region Laterality Modality Body N/A Computed Tomogra phy 08/22/2019 5:19 PM CDT Impressions 08/22/2019 5:19 PM CDT 1. ??No new focal consolidation or diffuse interstitial lung disease. 2. ??Mild central bronchial thickening, most prominent in the right middle and left lower lobes, unchanged to slightly increased when compared to prior from October 2018, likely representing bronchitis. Electronically signed by: Damari Michelle M.D. 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 TECHNIQUE: ??Transaxial computed tomographic images of the chest were obtained with intravenous contrast according to the standard protocol after the uneventful administration of 100 mL Opti-Ray 350 intravenous contrast. COMPARISON: Chest CT dated 11/22/2018 and 2018. FINDINGS: ?? There is moderate upper lobe predominant centrilobular emphysema. There is unchanged scarring in the right lung apex. ??No focal consolidation. ??There is mild central bronchial wall thickening, most prominent in the right middle lobe (slice -532.5) and left lower lobe (slice -602.5), unchanged to slightly increased when compared to prior chest CT dated 2018, with unchanged right middle lobe atelectasis. ??No pleural effusion or pneumothorax. ??No suspicious pulmonary nodules or masses. The heart size is normal. ??No pericardial effusion. ??No central pulmonary embolism. ??There are coronary artery calcifications. No supraclavicular, axillary, mediastinal, or hilar lymphadenopathy. There is a small 3 mm stone within the gallbladder. ??There is an unchanged hypoattenuating lesion adjacent to the pancreatic body, likely a lymphangioma or sequelae of prior pancreatitis. ??The visualized upper abdomen is otherwise normal. On bone windows, no suspicious lytic or sclerotic blastic osseous lesions. 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 TECHNIQUE: Transaxial computed tomographic images of the chest were obtained with intravenous contrast according to the standard protocol after the uneventful administration of 100 mL Opti-Ray 350 intravenous contrast. COMPARISON: Chest CT dated 11/22/2018 and 2018. FINDINGS: There is moderate upper lobe predominant centrilobular emphysema. There is unchanged scarring in the right lung apex. No focal consolidation. There is mild central bronchial wall thickening, most prominent in the right middle lobe (slice -532.5) and left lower lobe (slice -602.5), unchanged to slightly increased when compared to prior chest CT dated 2018, with unchanged right middle lobe atelectasis. No pleural effusion or pneumothorax. No suspicious pulmonary nodules or masses. The heart size is normal. No pericardial effusion. No central pulmonary embolism. There are coronary artery calcifications. No supraclavicular, axillary, mediastinal, or hilar lymphadenopathy. There is a small 3 mm stone within the gallbladder. There is an unchanged hypoattenuating lesion adjacent to the pancreatic body, likely a lymphangioma or sequelae of prior pancreatitis. The visualized upper abdomen is otherwise normal. On bone windows, no suspicious lytic or sclerotic blastic osseous lesions. IMPRESSION: 1. No new focal consolidation or diffuse interstitial lung disease. 2. Mild central bronchial thickening, most prominent in the right middle and left lower lobes, unchanged to slightly increased when compared to prior from October 2018, likely representing bronchitis. Electronically signed by: Damari Michelle M.D. Rossi Shen MD IMG CT PROCEDURES Final Result * Fibrinogen (08/22/2019 4:19 PM CDT) Pathologist [facility] Fibrinogen 395 170 - 400 mg/dL [facility] Blood specimen (specimen) 08/22/2019 4:19 PM CDT 08/22/2019 4:28 PM CDT Rossi Shen MD LAB BLOOD ORDERABLES Fin al Result Performing Organization Address [facility] Co de Phone Number [address] [address] * Type and screen (08/22/2019 4:19 PM CDT) Pathologist [facility] Ursula, indirect Negative [facility] ABO Rh A Positive [facility] Blood specimen (specimen) 08/22/2019 4:19 PM CDT 08/22/2019 4:35 PM CDT Narrative [facility] - 08/22/2019 5:20 PM CDT Has the patient had Daratumumab (Darzalex) in the past 6 months?->Unknown Rossi Shen MD LAB BLOOD BANK TEST ORDE RABLES Final Result Performing Organization Address [facility]/ZIP Co de Phone Number [address] [address] * (ABNORMAL) aPTT (08/22/2019 4:19 PM CDT) Pathologist [facility] aPTT 24.6(L) 25.0 - 37.0 sec [facility] Comment: Interpretive Data Therapeutic heparin range:60.0 - 94.0 sec based on correlation with therapeutic heparin activity range of 0.3 -0.7 Units/mL. Current interpretive data was last revised on 2011. Blood specimen (specimen) 08/22/2019 4:19 PM CDT 08/22/2019 4:28 PM CDT Rossi Shen MD LAB BLOOD ORDERABLES Fin al Result Performing Organization Address [facility] de Phone Number [facility] [address] [place] [address] * Protime-INR (08/22/2019 4:19 PM CDT) Pathologist [facility] PT 8.8 8.6 - 13.0 sec [facility] INR 0.82 0.80 - 1.20 [facility] Comment: Interpretive Data Inpatient therapeutic ranges* Atrial fibrillation ?2.0-3.0 INR Venous thrombo-embolism ?2.0-3.0 INR Bioprosthetic heart valve ?* Mechanical heart valve, bileaflet or tilting disk,aortic position ? 2.0-3.0 INR All other,or bileaflet or tilting disk, in mitral position ? 2.5-3.5 INR *See the pharmacy resource directory (PHRED) for an updated copy of the Tool Book at [email or web address] Current Interpretive Data was last revised 2012. Blood specimen (specimen) 08/22/2019 4:19 PM CDT 08/22/2019 4:28 PM CDT Result [facility] Rossi Shen MD LAB BLOOD ORDERABLES Fin al Result Performing Organization Address [facility] de Phone Number [facility] [address] [place] [address] * Uric acid (08/22/2019 4:19 PM CDT) Uric acid 4.0 3.0 - 8.0 mg/dL [facility] Blood specimen (specimen) 08/22/2019 4:19 PM CDT 08/22/2019 4:37 PM CDT Rossi Shen MD LAB BLOOD ORDERABLES Fin al Result Performing Organization Address [facility] Co de Phone Number [address] [address] * Phosphorus (08/22/2019 4:19 PM CDT) Pathologist [facility] Phosphorus, pl 3.5 2.3 - 4.5 mg/dL [facility] Blood specimen (specimen) 08/22/2019 4:19 PM CDT 08/22/2019 4:37 PM CDT Rossi Shen MD LAB BLOOD ORDERABLES Fin al Result Performing Organization Address [facility] de Phone Number [address] [address] * Magnesium (08/22/2019 4:19 PM CDT) [facility] Magnesium 1.8 1.4 - 2.5 mg/dL [facility] Blood specimen (specimen) 08/22/2019 4:19 PM CDT 08/22/2019 4:37 PM CDT Rossi Shen MD LAB BLOOD ORDERABLES Fin al Result Performing Organization Address [facility] de Phone Number [address] [address] * (ABNORMAL) Comprehensive metabolic panel (08/22/2019 4:19 PM CDT) Pathologist [facility] Sodium 134(L) 135 - 145 mmol/L [facility] Potassium, pl 5.9(H) 3.3 - 4.9 mmol/L [facility] Comment:Hemolyzed; (++++); p otassium value may be falsely elevated by as much as 1.1 - 1.6 mmol/L. Suggest redraw and reanalysis. Chloride 97 97 - 110 mmol/L [facility] CO2 31 22 - 32 mmol/L [facility] Anion gap 6 2 - 15 mmol/L [facility] BUN 30(H) 8 - 25 mg/dL [facility] Creatinine 0.61(L) 0.80 - 1.30 mg/dL [facility] Glucose 441(H) 70 - 199 mg/dL [facility] Comment: Interpretive Data Fasting [...] 2017. Calcium 9.1 8.5 - 10.3 mg/dL [facility] Bilirubin, total 0.4 0.1 - 1.2 mg/dL [facility] Protein, pl 6.4(L) 6.5 - 8.5 g/dL [facility] Albumin 3.5 3.5 - 5.0 g/dL [facility] Alk phos 137(H) 40 - 130 Units/L [facility] Comment:Hemolyzed; result ma y be falsely decreased. ALT 197(H) 7 - 55 Units/L [facility] AST 84(H) 10 - 50 Units/L [facility] Comment:Hemolyzed; result ma y be falsely elevated. Blood specimen (specimen) 08/22/2019 4:19 PM CDT 08/22/2019 4:37 PM CDT us Rossi Shen MD LAB BLOOD ORDERABLES Fin al Result [facility] [address] [place] [address] * XR Chest Pa Lateral 2 Views (08/22/2019 2:20 PM CDT) Anatomical Region Laterality Modality Body, Chest N/A Computed Radiogr aphy 08/23/2019 7:37 AM CDT Impressions 08/23/2019 7:37 AM CDT Comparison radiograph is dated 08/22/2019. The lungs are hyper expanded. Small amount of fluid is seen within the right oblique fissure. There has been interval reabsorption of the right pleural effusion compared to the prior examination, with improvement in the right middle lobe infiltrate. Lungs are again noted to be hyperexpanded. Atherosclerotic changes noted in the aortic arch. Electronically signed by: Azeem Plaza M.D. Narrative 08/23/2019 7:37 AM CDT EXAMINATION: 2 view chest radiograph Procedure Note Azeem Plaza MD - 08/23/2019 EXAMINATION: 2 view chest radiograph IMPRESSION: Comparison radiograph is dated 08/22/2019. The lungs are hyper expanded. Small amount of fluid is seen within the right oblique fissure. There has been interval reabsorption of the right pleural effusion compared to the prior examination, with improvement in the right middle lobe infiltrate. Lungs are again noted to be hyperexpanded. Atherosclerotic changes noted in the aortic arch. Electronically signed by: Azeem Plaza M.D. Katelyn Payton SECURITY SYSTEM ENGINEER IMG XR PROCEDURES Final R esult * Blood culture Blood Hand, left (08/22/2019 11:40 AM CDT) Report Final Report: No growth [facility] Blood specimen (specimen) (Hand, left) 08/22/2019 11:40 AM CDT 08/22/2019 12:36 PM CDT Narrative [facility] - 08/27/2019 4:01 PM CDT 1. Blood cultures are incubated for 5 [...] organism identification may be performed using the [employer] Gram-Positive Blood Culture Assay. This assay detects microbial DNA in positive blood culture broth via hybridization of target DNA to capture oligonucleotides on a microarray. This assay has been cleared by the [place] Food and Drug Administration and its performance characteristics have been verified by the [facility]. 5. For questions about this culture, contact the Microbiology Laboratory at [phone]. Interpretive data was last revised on 2018. Katelyn Payton NP LAB MICROBIOLOGY - GENERA L ORDERABLES Final Result [facility] [address] [place] [address] * (ABNORMAL) Differential, auto (08/22/2019 11:39 AM CDT) Neutrophil abs 15.8(H) 1.7 - 6.5 K/cumm [facility] Imm gran abs 0.6(H) 0.0 - 0.1 K/cumm [facility] Lymphocyte abs 0.6(L) 0.8 - 3.3 K/cumm [facility] Monocyte abs 1.0(H) 0.2 - 0.8 K/cumm [facility] Eosinophil abs 0.0 0.0 - 0.5 K/cumm [facility] Basophil abs 0.0 0.0 - 0.1 K/cumm [facility] Neutrophil pct 87.9 % [facility] Comment: Interpretive Data Percent cell count reference ranges are not reported, since discordance with absolute values may lead to misinterpretation of CBC data. Current Interpretive Data was last revised on 2018. Imm gran pct 3.2 % [facility] Comment: Interpretive Data Percent cell count reference ranges are not reported, since discordance with absolute values may lead to misinterpretation of CBC data. Current Interpretive Data was last revised on 2018. Lymphocyte pct 3.3 % [facility] Comment: Interpretive Data Percent cell count reference ranges are not reported, since discordance with absolute values may lead to misinterpretation of CBC data. Current Interpretive Data was last revised on 2018. Monocyte pct 5.4 % [facility] Comment: Interpretive Data Percent cell count reference ranges are not reported, since discordance with absolute values may lead to misinterpretation of CBC data. Current Interpretive Data was last revised on 2018. Eosinophil pct 0.0 % [facility] Comment: Interpretive Data Percent cell count reference ranges are not reported, since discordance with absolute values may lead to misinterpretation of CBC data. Current Interpretive Data was last revised on 2018. Basophil pct 0.2 % [facility] Comment: Interpretive Data Percent cell count reference ranges are not reported, since discordance with absolute values may lead to misinterpretation of CBC data. Current Interpretive Data was last revised on 2018. Blood specimen (specimen) 08/22/2019 11:39 AM CDT 08/22/2019 12:19 PM CDT Katelyn Payton SECURITY SYSTEM ENGINEER LAB BLOOD ORDERABLES Pilar l Result [facility] [address] [place] [address] * Blood culture Blood Peripheral (08/22/2019 11:39 AM CDT) Report Final Report: No growth [facility] Blood specimen (specimen) (Peripheral) 08/22/2019 11:39 AM CDT 08/22/2019 12:36 PM CDT Narrative [facility] - 08/27/2019 4:01 PM CDT 1. Blood cultures are incubated for 5 [...] organism identification may be performed using the [employer] Gram-Positive Blood Culture Assay. This assay detects microbial DNA in positive blood culture broth via hybridization of target DNA to capture oligonucleotides on a microarray. This assay has been cleared by the [place] Food and Drug Administration and its performance characteristics have been verified by the [facility]. 5. For questions about this culture, contact the Microbiology Laboratory at [phone]. Interpretive data was last revised on 2018. Katelyn Payton NP LAB MICROBIOLOGY - GENERA L ORDERABLES Final Result [facility] [address] [place] [address] * Influenza A/B and RSV PCR Nasopharyngeal (08/22/2019 11:39 AM CDT) Pathologist [facility] Influenza A RNA Not Detected Not Detected [facility] Influenza B RNA Not Detected Not Detected [facility] RSV RNA Not Detected Not Detected [facility] Comment: Interpretive Data Testing performed by [facility] ([phone]). This test is performed using the [employer] Xpert Flu/RSV Assay. ??This is a multiplex, real-time reverse transcriptase PCR assay that detects influenza A, influenza B,and respiratory syncytial virus RNA. ??This assay has been cleared by the [place] Food and Drug Administration, and its performance characteristics have been verified by the [facility]. Interpretive Data last revised 2019 Nasopharyngeal 08/22/2019 11 :39 AM CDT 08/22/2019 12:17 PM CDT Katelyn Payton SECURITY SYSTEM ENGINEER LAB MICROBIOLOGY - GENERA L ORDERABLES Final Result [facility] [address] [place] [address] * (ABNORMAL) Respiratory pathogen PCR Nasopharyngeal (08/22/2019 11:39 AM CDT) Adenovirus DNA Not Detected Not Detected [facility] Coronavirus 229E RNA Not Detected Not Detected [facility] Coronavirus HKU1 RNA Not Detected Not Detected [facility] Coronavirus NL63 RNA Not Detected Not Detected [facility] Coronavirus OC43 RNA Not Detected Not Detected [facility] Metapneumovirus RNA Not Detected Not Detected [facility] Rhinovirus/Enterov irus RNA Detected(A) Not Detected [facility] Influenza A RNA Not Detected Not Detected [facility] Influenza B RNA Not Detected Not Detected [facility] Parainfluenza 1 RNA Not Detected Not Detected [facility] Parainfluenza 2 RNA Not Detected Not Detected [facility] Parainfluenza 3 RNA Not Detected Not Detected [facility] Parainfluenza 4 RNA Not Detected Not Detected [facility] RSV RNA Not Detected Not Detected [facility] B. pertussis DNA Not Detected Not Detected [facility] C. pneumoniae DNA Not Detected Not Detected [facility] M. pneumoniae DNA Not Detected Not Detected [facility] B. parapertussis DNA Not Detected Not Detected [facility] Comment: The [employer] FilmArray Respiratory Panel (RP2) assay is a [...] FilmArray RP2 assay is FDA cleared for SECURITY SYSTEM ENGINEER swabs. ??Additional sample types have been validated according to CLIA regulations. The performance characteristics of this assay have been determined by [facility]. Current interpretive data was last revised on 2018. Nasopharyngeal 08/22/2019 11 :39 AM CDT 08/22/2019 12:58 PM CDT Katelyn Payton SECURITY SYSTEM ENGINEER LAB MICROBIOLOGY - GENERA L ORDERABLES Final Result [facility] [address] [place], [place] [id number] * Phosphorus (08/22/2019 11:39 AM CDT) [facility] Phosphorus, pl 3.7 2.3 - 4.5 mg/dL ZULEMA DENT Blood specimen (specimen) (Blood, Venous) 08/22/2019 11:39 AM CDT 08/22/2019 12:19 PM CDT Katelyn Payton SECURITY SYSTEM ENGINEER LAB BLOOD ORDERABLES Pilar l Result Performing Organization Address City/[facility]/ZIP Co de Phone Number [facility] [address] [place] [address] * Magnesium (08/22/2019 11:39 AM CDT) Pathologist [facility] Magnesium 1.9 1.4 - 2.5 mg/dL [facility] Blood specimen (specimen) (Blood, Venous) 08/22/2019 11:39 AM CDT 08/22/2019 12:19 PM CDT Katelynleo Payton SECURITY SYSTEM ENGINEER LAB BLOOD ORDERABLES Pilar l Result Performing Organization Address [facility] de Phone Number [facility] [address] [place] [address] * (ABNORMAL) Comprehensive metabolic panel (08/22/2019 11:39 AM CDT) [facility] Sodium 140 135 - 145 mmol/L [facility] Potassium, pl 4.7 3.3 - 4.9 mmol/L [facility] Comment:Hemolyzed; (+++); po tassium value may be falsely elevated by as much as 0.6 - 1.0 mmol/L. Suggest redraw and reanalysis. Chloride 100 97 - 110 mmol/L [facility] CO2 32 22 - 32 mmol/L [facility] Anion gap 8 2 - 15 mmol/L [facility] BUN 33(H) 8 - 25 mg/dL [facility] Creatinine 0.70(L) 0.80 - 1.30 mg/dL [facility] Glucose 254(H) 70 - 199 mg/dL [facility] Comment: Interpretive Data Fasting [...] interpretive data was last revised 2017. Calcium 9.6 8.5 - 10.3 mg/dL [facility] Bilirubin, total 0.3 0.1 - 1.2 mg/dL [facility] Protein, pl 6.2(L) 6.5 - 8.5 g/dL [facility] Albumin 3.5 3.5 - 5.0 g/dL [facility] Alk phos 143(H) 40 - 130 Units/L [facility] ALT 202(H) 7 - 55 Units/L [facility] AST 82(H) 10 - 50 Units/L [facility] Comment:Hemolyzed; result ma y be falsely elevated. Blood specimen (specimen) 08/22/2019 11:39 AM CDT 08/22/2019 12:19 PM CDT Katelyn Payton SECURITY SYSTEM ENGINEER LAB BLOOD ORDERABLES Pilar armas Result [facility] [address] [place], [place] [id number] * (ABNORMAL) CBC with auto differential (08/22/2019 11:39 AM CDT) WBC 18.0(H) 3.8 - 9.9 K/cumm [facility] Hgb 12.1(L) 13.0 - 17.5 g/dL [facility] Hct 36.7(L) 38.9 - 50.3 % [facility] Plt 151 150 - 400 K/cumm [facility] MPV 11.2 9.1 - 12.3 fL [facility] RBC 3.47(L) 4.30 - 5.80 M/cumm [facility] MCV 105.8(H) 81.3 - 96.4 fL [facility] MCH 34.9(H) 27.1 - 33.3 pg [facility] MCHC 33.0 32.3 - 35.7 g/dL [facility] RDW CV 16.8(H) 11.1 - 14.9 % [facility] RDW SD 65.1(H) 35.7 - 48.1 fL [facility] NRBC abs 1.64(H) 0.00 - 0.01 K/cumm [facility] Blood specimen (specimen) 08/22/2019 11:39 AM CDT 08/22/2019 12:19 PM CDT Katelyn Payton NP LAB BLOOD ORDERABLES Pilar armas Result [facility] [address] [place] [address] documented in this encounter Visit Diagnoses Diagnosis 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)- Primary 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) Nmgdk-uzuqay-snho disease (HCC) Type 2 diabetes mellitus with hyperosmolarity without coma, with long-term current use of insulin (HCC) Osteopenia Disorder of bone and cartilage, unspecified Iwekq-gjmtpp-hxya disease (HCC) Type 2 diabetes mellitus (HCC) Pure hypercholesterolemia COPD, severe (HCC) DVT (deep venous thrombosis) (CMS/HCC) (HCC) Acute venous embolism and thrombosis of unspecified deep vessels of lower extremity documented in this encounter Administered Medications Inactive Administered Medications - up to 3 most recent administrations Medication Order MAR Action Action Date Dose Rate Site acyclovir (ZOVIRAX) capsule 400 mg 400 mg, oral, Every 8 hours, First dose on 08/22/19 at 1420, Indications: Prophylaxis, MedicalIndications:Prophylaxis, Medical Given 08/25/2019 3:14 PM CDT 400 mg Given 08/25/2019 7:55 AM CDT 400 mg Given 08/25/2019 6:14 AM CDT 400 mg albuterol HFA (PROVENTIL HFA,VENTOLIN HFA,PROAIR HFA) 90 mcg/actuation inhaler 2 puff 2 puff, inhalation, Every 4 hours PRN ([employer]), wheezing, Starting on 08/22/19 at 2200 Given 08/23/2019 12:10 AM CDT 2 puffs albuterol HFA (PROVENTIL HFA,VENTOLIN HFA,PROAIR HFA) 90 mcg/actuation inhaler 2 puff 2 puff, inhalation, Every 4 hours PRN, wheezing, Starting on 08/23/19 at 0100 Given 08/24/2019 6:27 AM CDT 2 puffs Given 08/23/2019 7:28 PM CDT 2 puffs Given 08/23/2019 6:38 AM CDT 2 puffs atorvastatin (LIPITOR) tablet 40 mg 40 mg, oral, Daily, First dose on 08/22/19 at 1420 Given 08/25/2019 7:54 AM CDT 40 mg Given 08/24/2019 8:31 AM CDT 40 mg Given 08/23/2019 9:27 AM CDT 40 mg dextrose (D10W) 10% bolus 250 mL 250 mL, intravenous, at 1,000 mL/hr, Administer over 15 Minutes, Every 15 min PRN, blood glucose less than 70 mg/dL and UNABLE to swallow/take PO glucose/juice., Starting on 08/22/19 at 1342, After treatment for hypoglycemia, recheck BG followed [...] glucose less than 70 mg/dL, Starting on 08/22/19 at 1342, If patient is alert and able to [...] Call MD for each episode of hypoglycemia. LABEL PRINTER STATES GLUTOSE-15 CONTAINS GLUCOSE 40% W/W (50% W/V), Indications: hypoglycemic disorderIndications:hypoglycemic disorder fluticasone propion-salmeterol (ADVAIR DISKUS) 100-50 mcg/dose diskus inhaler 1 puff 1 puff, inhalation, 2 times daily ([employer]), First dose on 08/22/19 at 2000, Rinse mouth with water after use. Do not swallow. Given 08/22/2019 9:16 PM CDT 1 puff fluticasone propion-salmeterol (ADVAIR DISKUS) 100-50 mcg/dose diskus inhaler 1 puff 1 puff, inhalation, 2 times daily, First dose (after last modification) on 08/23/19 at 0900, Rinse mouth with water after use. Do not swallow. Given 08/25/2019 7:57 AM CDT 1 puff Given 08/24/2019 8:35 PM CDT 1 puff Given 08/24/2019 8:32 AM CDT 1 puff furosemide (LASIX) tablet 20 mg 20 mg, oral, Daily, First dose on 08/22/19 at 1420 Given 08/25/2019 7:54 AM CDT 20 mg Given 08/24/2019 8:32 AM CDT 20 mg Given 08/23/2019 9:27 AM CDT 20 mg guaiFENesin ER (MUCINEX) extended release tablet 600 mg 600 mg, oral, 2 times daily, First dose on 08/22/19 at 2245, Do not crush, chew, cut, dissolve, open or otherwise manipulate tablet/capsule. Given 08/25/2019 7:55 AM CDT 600 mg Given 08/24/2019 8:35 PM CDT 600 mg Given 08/24/2019 8:32 AM CDT 600 mg heparin 10 unit/mL flush 50 Units 50 Units (5 mL), intra-catheter, Every 12 hours scheduled, First dose on 08/22/19 at 1420, Do not use with Groshong catheter, Indications: Maintain Patency of Indwelling Vascular CatheterIndications:Maintain Patency of Indwelling Vascular Catheter Given 08/24/2019 8:36 PM CDT 50 U nits Given 08/24/2019 8:38 AM CDT 50 Units insulin glargine (LANTUS) injection 20 Units 20 Units, subcutaneous, Every morning, First dose on 08/22/19 at 1420, Do not mix with other insulins, Indications: Diabetes MellitusIndications:Diabetes Mellitus Given 08/23/2019 9:29 AM CDT 20 Units Left Lower Abdomen insulin glargine (LANTUS) injection 30 Units 30 Units, subcutaneous, Every morning, First dose (after last modification) on 08/24/19 at 0900, Do not mix with other insulins, Indications: Diabetes MellitusIndications:Diabetes Mellitus Given 08/24/2019 8:30 AM CDT 30 Units Left Lower Abdomen insulin glargine (LANTUS) injection 35 Units 35 Units, subcutaneous, Every morning, First dose (after last modification) on 08/25/19 at 0900, Do not mix with other insulins, Indications: Diabetes MellitusIndications:Diabetes Mellitus Given 08/25/2019 7:53 AM CDT 35 Units Right Upper Arm insulin lispro (HumaLOG) injection 1-3 Units 1-3 Units, subcutaneous, Nightly, First dose on 08/22/19 at 2100, Blood Sugar Mid Dose PM - PO patients 175 or less No insulin 176 - 200 1 unit 201 - 250 2 units 251 - 299 3 units Greater than 299 Call MD for hyperglycemia management instructions Do NOT hold for NPO status., Indications: Diabetes MellitusIndications:Diabetes Mellitus Given 08/23/2019 9:59 PM CDT 3 Units Right Upper Arm insulin lispro (HumaLOG) injection 1-5 Units 1-5 Units, subcutaneous, 3 times daily with meals, First dose on 08/22/19 at 1800, Blood Sugar Mid Dose meal time - PO patients 139 or less No insulin 140 - 175 1 unit 176 - 200 2 unit 201 - 250 3 units 251 - 299 5 units Greater than 299 Call MD for hyperglycemia management instructions Do NOT hold for NPO status., Indications: Diabetes MellitusIndications:Diabetes Mellitus Given 08/25/2019 12:08 PM CDT 1 Units Left Upper Arm Given 08/25/2019 7:53 AM CDT 3 Units Ri ght Upper Arm Given 08/24/2019 12:18 PM CDT 5 Units R ight Upper Arm insulin lispro (HumaLOG) injection 10 Units 10 Units, subcutaneous, Once, On 08/23/19 at 0545, For 1 dose Given 08/23/2019 5:11 AM CDT 10 Units Right Upper Arm insulin lispro (HumaLOG) injection 10 Units 10 Units, subcutaneous, 3 times daily with meals, First dose (after last modification) on 08/23/19 at 1200, If BG 100 mg/dl or [...] an adjustment in patient's insulin dose. Given 08/24/2019 5:44 PM CDT 10 Units Righ t Upper Arm Given 08/24/2019 12:19 PM CDT 10 Units R ight Upper Arm Given 08/24/2019 7:35 AM CDT 10 Units Ri ght Upper Arm insulin lispro (HumaLOG) injection 11 Units 11 Units, subcutaneous, 3 times daily with meals, First dose (after last modification) on Sat08/25/19 at 0800, If BG 100 mg/dl or [...] an adjustment in patient's insulin dose. Given 08/25/2019 12:07 PM CDT 11 Units Lef t Upper Arm Given 08/25/2019 7:52 AM CDT 11 Units Ri ght Upper Arm insulin lispro (HumaLOG) injection 5 Units 5 Units, subcutaneous, Once, On 08/22/19 at 1800, For 1 dose Given 08/22/2019 5:53 PM CDT 5 Units Left Lower Abdomen insulin lispro (HumaLOG) injection 6 Units 6 Units, subcutaneous, Once, On 08/22/19 at 2300, For 1 dose Given 08/22/2019 10:32 PM CDT 6 Units Right Upper Arm insulin lispro (HumaLOG) injection 7 Units 7 Units, subcutaneous, 3 times daily with meals, First dose on 08/22/19 at 1800, If BG 100 mg/dl or [...] an adjustment in patient's insulin dose. Given 08/22/2019 5:53 PM CDT 7 Units Left Lower Abdomen insulin lispro (HumaLOG) injection 7 Units 7 Units, subcutaneous, Once, On 08/24/19 at 1815, For 1 dose, Indications: HyperglycemiaIndications:Hyper glycemia Given 08/24/2019 5:44 PM CDT 7 Units Right Upper Arm insulin lispro (HumaLOG) injection 8 Units 8 Units, subcutaneous, Once, On 08/24/19 at 2030, For 1 dose, Indications: HyperglycemiaIndications:Hyper glycemia Given 08/24/2019 8:34 PM CDT 8 Units Right Upper Arm insulin regular (HumuLIN R, NovoLIN R) injection 5 Units 5 Units, intravenous, Once, On 08/23/19 at 0700, For 1 dose Given 08/23/2019 6:36 AM CDT 5 Units ioversol (OPTIRAY 350) syringe syringe 100 mL 100 mL, intravenous, Once in imaging, contrast, Starting on 08/22/19 at 1639, For 1 dose Given 08/22/2019 4:50 PM CDT 100 mL methylPREDNISolone sodium succinate (SOLU-medrol) preservative free injection 60 mg 60 mg, intravenous, Administer over 3 Minutes, Every 24 hours scheduled, First dose on 08/22/19 at 1645, Administer 125 mg or less over 3 minutes Given 08/24/2019 8:32 AM CDT 60 mg Given 08/23/2019 9:27 AM CDT 60 mg Given 08/22/2019 5:52 PM CDT 60 mg montelukast (SINGULAIR) tablet 10 mg 10 mg, oral, Nightly, First dose on 08/22/19 at 2100 Given 08/24/2019 8:35 PM CDT 10 mg Given 08/23/2019 8:38 PM CDT 10 mg Given 08/22/2019 8:32 PM CDT 10 mg mycophenolate mofetil (CELLCEPT) tablet 1,000 mg 1,000 mg, oral, 2 times daily, First dose on 08/22/19 at 1420, Administer 2 hours before or 2 hours after all aluminum or magnesium containing products Do not crush, chew, cut, dissolve, open or otherwise manipulate tablet/capsule. Given 08/25/2019 7:54 AM CDT 1,000 m g Given 08/24/2019 8:35 PM CDT 1,000 mg Given 08/24/2019 8:37 AM CDT 1,000 mg nicotine (NICODERM CQ) 21 mg patch 24 hour 1 patch 1 patch, transdermal, Administer over 24 Hours, Daily, First dose on 08/22/19 at 1645 Medication Applied 08/25/2019 7:56 AM CDT 1 patch Left Shoulder Medication Applied 08/24/2019 8:34 AM CDT 1 patch Left Arm Medication Applied 08/23/2019 9:29 AM CDT 1 patch Left Shoulder ofloxacin (OCUFLOX) 0.3 % ophthalmic solution 1 drop 1 drop, each eye, 2 times daily, First dose on 08/22/19 at 1420 Given 08/25/2019 7:58 AM CDT 1 drop Given 08/24/2019 8:37 PM CDT 1 drop Given 08/24/2019 8:34 AM CDT 1 drop oxyCODONE (ROXICODONE) tablet 5 mg 5 mg, oral, Every 4 hours PRN, 1st line for pain, Starting on 08/22/19 at 1819, Indications: PainIndications:Pain Given 08/25/2019 6:33 AM CDT 5 mg Given 08/24/2019 10:01 PM CDT 5 mg Given 08/24/2019 5:45 PM CDT 5 mg predniSONE (DELTASONE) tablet 80 mg 80 mg, oral, Daily, First dose on Sat08/25/19 at 0900 Given 08/25/2019 7:54 AM CDT 80 mg rivaroxaban (XARELTO) tablet 20 mg 20 mg, oral, Daily with dinner, First dose on Sat08/22/19 at 1800, Administer doses greater than or equal to 15 mg/day with food; doses of 10 mg/day may be administered without regard to meals. If on heparin infusion, discontinue heparin infusion upon first administration of rivaroxaban., Indications: Venous ThrombosisIndications:Venous Thrombosis Given 08/24/2019 5:45 PM CDT 20 m g Given 08/23/2019 5:21 PM CDT 20 mg Given 08/22/2019 8:32 PM CDT 20 mg sodium chloride 0.9% flush 0.5-20 mL 0.5-20 mL, intra-catheter, Every 8 hours scheduled, First dose on 08/22/19 at 1420, Flush volume based on line type and size. Given 08/25/2019 6:14 AM CDT 10 mL Given 08/24/2019 8:36 PM CDT 10 mL Given 08/24/2019 2:30 PM CDT 10 mL sodium chloride 0.9% flush 10 mL 10 mL, intravenous, As needed, line care, Starting on 08/22/19 at 1122, Flush pre and post IV catheter use.Indications:AML (acute myeloid leukemia) in remission (HCC) Given 08/22/2019 12:00 PM CDT 10 mL sulfamethoxazole-trimethoprim (BACTRIM DS) 800-160 mg per tablet 160 mg of trimethoprim 160 mg of trimethoprim, oral, 3 times weekly (Once per day on Sat), First dose on Sat08/24/19 at 0900, Indications: Prophylaxis, MedicalIndications:Prophylaxis , Medical Given 08/24/2019 8:32 AM CDT 160 mg of trimethoprim tacrolimus (PROGRAF) capsule 0.5 mg 0.5 mg, oral, Every other day, First dose on 08/22/19 at 1645, Avoid grapefruit juice Given 08/24/2019 8:31 AM CDT 0.5 mg tiotropium (SPIRIVA) 18 mcg per inhalation capsule 1 capsule 1 capsule, inhalation, Daily ([employer]), First dose on Sat08/24/19 at 0800, To ensure drug delivery, the contents of each capsule should be inhaled twice. Inhalation only. Given 08/24/2019 9:08 AM CDT 1 capsule tiotropium (SPIRIVA) 18 mcg per inhalation capsule 1 capsule 1 capsule, inhalation, Daily, First dose (after last modification) on Sat08/25/19 at 0900, To ensure drug delivery, the contents of each capsule should be inhaled twice. Inhalation only. Given 08/25/2019 7:56 AM CDT 1 capsule documented in this encounter Discontinued Medications Medication Sig Discontinue Reason Start Date End Da te tacrolimus (PROGRAF) 0.5 mg capsuleIndications:AML (acute myeloid leukemia) in remission (HCC),Unyjw-sjmyye-pkgy disease (HCC) TAKE 1 CAPSULE BY MOUTH ONCE DAILY 07/31/2019 08/22/2019 predniSONE (DELTASONE) 10 mg tabletIndications:AML (acute myeloid leukemia) in remission (HCC),Yyjty-phptbj-njvd disease (HCC) TAKE 4 TABLETS BY MOUTH ONCE DAILY Reorder 04/30/2019 08/25/2019 BASAGLAR KWIKPEN U-100 INSULIN 100 unit/mL (3 mL) insulin penIndications:Type 2 diabetes mellitus with hyperosmolarity without coma, with long-term current use of insulin ([facility]) INJECT 30 UNITS Q AM Reorder 08/07/2019 08/25/2019 insulin NPH (HumuLIN N, NovoLIN N) 100 unit/mL (3 mL) insulin penIndications:Type 2 diabetes mellitus with hyperosmolarity without coma, with long-term current use of insulin ([facility]) Inject 15 Units under the skin daily with breakfast Take with prednisone Stop Taking at Discharge 07/01/2019 08/25/2019 predniSONE (DELTASONE) 5 mg tabletIndications:AML (acute myeloid leukemia) in remission (HCC),Yyvfy-ivfpbo-cugm disease (HCC) TAKE 8 TABLETS BY MOUTH ONCE DAILY Stop Taking at Discharge 07/10/2019 08/25/2019 NOVOLOG FLEXPEN U-100 INSULIN 100 unit/mL (3 mL) insulin pen INJECT 9 UNITS SUBCUTANEOUSLY THREE TIMES DAILY BEFORE MEAL(S) Stop Taking at Discharge 07/31/2019 08/25/2019 levoFLOXacin (LEVAQUIN) 750 mg tablet Take 750 mg by mouth nightly at bedtime Stop Taking at Discharge 07/25/2019 08/25/2019 magnesium oxide (MAG-OX) 400 mg (241.3 mg elemental magnesium) tablet TAKE 1 TABLET BY MOUTH ONCE DAILY IN THE MORNING Stop Taking at Discharge 07/25/2019 08/25/2019 gabapentin (NEURONTIN) 100 mg capsuleIndications:Type 2 diabetes mellitus with hyperosmolarity without coma, with long-term current use of insulin ([facility]) TAKE 1 PO QD Stop Taking at Discharge 08/21/2019 08/25/2019 documented as of this encounter Active and Recently Administered Medications Times are shown in CDT. Scheduled Medication Order 08/23/2019 08/24/2019 08/25/2019 acyclovir (ZOVIRAX) capsule 400 mg 400 mg, oral, Every 8 hours, First dose on 08/22/19 at 1420, Indications: Prophylaxis, Medical 1114 (Given - Provider: Bonnie Tran RN)1600 (Given - Provider: Bonnie Tran RN)2037 (Given - Provider: Fadia Toledo RN) 0831 (Given - Provider: Yolie Corral RN)1718 (Given - Provider: Yolie Corral RN)2205 (Given - Provider: Mike Zayas RN) 0614 (Given - Provider: Mike Zayas RN)0755 (Given - Provider: Yolie Corral RN)1514 (Given - Provider: Yolie Corral RN) atorvastatin (LIPITOR) tablet 40 mg 40 mg, oral, Daily, First dose on 08/22/19 at 1420 0927 (Given - Provider: Bonnie Tran RN) 0831 (Given - Provider: Yolie Corral RN) 075 (Given - Provider: Yolie Corral RN) fluticasone propion-salmeterol (ADVAIR DISKUS) 100-50 mcg/dose diskus inhaler 1 puff 1 puff, inhalation, 2 times daily, First dose (after last modification) on 08/23/19 at 0900, Rinse mouth with water after use. Do not swallow. 0928 (Given - Provider: Bonnie Tran RN)2037 (Given - Provider: Fadia Toledo RN) 0832 (Given - Provider: Yolie Corral RN)2034 (Given - Provider: Mike Zayas RN) 0757 (Given - Provider: Yolie Corral RN - Comment: Pt request) furosemide (LASIX) tablet 20 mg 20 mg, oral, Daily, First dose on 08/22/19 at 1420 0927 (Given - Provider: Bonnie Tran RN) 0832 (Given - Provider: Yolie Corral RN) 0754 (Given - Provider: Yolie Corral RN) guaiFENesin ER (MUCINEX) extended release tablet 600 mg 600 mg, oral, 2 times daily, First dose on 08/22/19 at 2245, Do not crush, chew, cut, dissolve, open or otherwise manipulate tablet/capsule. 926 (Given - Provider: Bonnie Tran RN)2037 (Given - Provider: Fadia Toledo RN) 0832 (Given - Provider: Yolie Corral RN)2034 (Given - Provider: Mike Zayas, RN) 075 (Given - Provider: Yolie Corral RN - Comment: Pt. request) heparin 10 unit/mL flush 50 Units 50 Units (5 mL), intra-catheter, Every 12 hours scheduled, First dose on 08/22/19 at 1420, Do not use with Groshong catheter, Indications: Maintain Patency of Indwelling Vascular Catheter 928 (Not Given - Provider: Bonnie Tran RN - Reason: Patient/family refused)2040 (Not Given - Provider: Fadia Toledo RN - Reason: Other) 837 (Given - Provider: Yolie Corral RN)2035 (Given - Provider: Mike Zayas, BECKI) 075 (Not Given - Provider: Yolie Corral RN - Reason: Other - Comment: Pt. with SL) insulin glargine (LANTUS) injection 20 Units (CANCELED) 20 Units, subcutaneous, Every morning, First dose on 08/22/19 at 1420, Do not mix with other insulins, Indications: Diabetes Mellitus 09 (Given - Provider: Bonnie Tran RN) insulin glargine (LANTUS) injection 30 Units (CANCELED) 30 Units, subcutaneous, Every morning, First dose (after last modification) on Sat08/24/19 at 0900, Do not mix with other insulins, Indications: Diabetes Mellitus 0830 (Given - Provider: Yolie Corral RN) insulin glargine (LANTUS) injection 35 Units 35 Units, subcutaneous, Every morning, First dose (after last modification) on Sat08/25/19 at 0900, Do not mix with other insulins, Indications: Diabetes Mellitus 0753 (Given - Provider: Yolie Corral RN) insulin lispro (HumaLOG) injection 1-3 Units 1-3 Units, subcutaneous, Nightly, First dose on 08/22/19 at 2100, Blood Sugar Mid Dose PM - PO patients 175 or less No insulin 176 - 200 1 unit 201 - 250 2 units 251 - 299 3 units Greater than 299 Call MD for hyperglycemia management instructions Do NOT hold for NPO status., Indications: Diabetes Mellitus 9 (Given - Provider: Fadia Toledo, RN) 2033 (Not Given - Provider: Mike Zayas RN - Reason: See Provider Order - Comment: gave 8 units instead of [address] Bergman) insulin lispro (HumaLOG) injection 1-5 Units 1-5 Units, subcutaneous, 3 times daily with meals, First dose on 08/22/19 at 1800, Blood Sugar Mid Dose meal time - PO patients 139 or less No insulin 140 - 175 1 unit 176 - 200 2 unit 201 - 250 3 units 251 - 299 5 units Greater than 299 Call MD for hyperglycemia management instructions Do NOT hold for NPO status., Indications: Diabetes Mellitus 1112 (Given - Provider: Bonnie Tran, BECKI)1344 (Given - Provider: Bonnie Tran RN)1721 (Given - Provider: Bonnie Tran RN) 0735 (Given - Provider: Fadia Toledo, BECKI)1218 (Given - Provider: Yolie Corral, BECKI)1734 (Not Given - Provider: Yolie Corral RN - Reason: Other - Comment: see 1X order) 0753 (Given - Provider: Yolie Corral, RN)1208 (Given - Provider: Yolie Corral, RN) insulin lispro (HumaLOG) injection 10 Units (COMPLETED) 10 Units, subcutaneous, Once, On 08/23/19 at 0545, For 1 dose 0511 (Given - Provider: Fadia Toledo, BECKI) insulin lispro (HumaLOG) injection 10 Units (CANCELED) 10 Units, subcutaneous, 3 times daily with meals, First dose (after last modification) on 08/23/19 at 1200, If BG 100 mg/dl or [...] for an adjustment in patient's insulin dose. 1114 (Given - Provider: Bonnie Tran RN)1345 (Given - Provider: Bonnie Tran RN - Comment: ok per pt)1721 (Given - Provider: Bonnie Tran RN) 0735 (Given - Provider: Fadia Toledo RN)1219 (Given - Provider: Yolie Corral RN)1744 (Given - Provider: Yolie Corral RN) insulin lispro (HumaLOG) injection 11 Units 11 Units, subcutaneous, 3 times daily with meals, First dose (after last modification) on Sat08/25/19 at 0800, If BG 100 mg/dl or [...] for an adjustment in patient's insulin dose. 0752 (Given - Provider: Yolie Corral RN)1207 (Given - Provider: Yolie Corral RN) insulin lispro (HumaLOG) injection 7 Units (COMPLETED) 7 Units, subcutaneous, Once, On Sat08/24/19 at 1815, For 1 dose, Indications: Hyperglycemia 1743 (Given - Provider: Yolie Corral RN) insulin lispro (HumaLOG) injection 8 Units (COMPLETED) 8 Units, subcutaneous, Once, On Sat08/24/19 at 2030, For 1 dose, Indications: Hyperglycemia 2033 (Given - Provider: Mike Zayas RN) insulin regular (HumuLIN R, NovoLIN R) injection 5 Units (COMPLETED)(Linked Group 1) 5 Units, intravenous, Once, On Sat08/23/19 at 0700, For 1 dose 0636 (Given - Provider: Fadia Toledo RN) methylPREDNISolone sodium succinate (SOLU-medrol) preservative free injection 60 mg (CANCELED) 60 mg, intravenous, Administer over 3 Minutes, Every 24 hours scheduled, First dose on 08/22/19 at 1645, Administer 125 mg or less over 3 minutes 09 (Given - Provider: Bonnie Tran RN) 0832 (Given - Provider: Yolie Corral, RN) montelukast (SINGULAIR) tablet 10 mg 10 mg, oral, Nightly, First dose on 08/22/19 at 2100 2037 (Given - Provider: Fadia Toledo, BECKI) 2034 (Given - Provider: Mike Zayas, RN) mycophenolate mofetil (CELLCEPT) tablet 1,000 mg 1,000 mg, oral, 2 times daily, First dose on 08/22/19 at 1420, Administer 2 hours before or 2 hours after all aluminum or magnesium containing products Do not crush, chew, cut, dissolve, open or otherwise manipulate tablet/capsule. 09 (Given - Provider: Bonnie Tran RN)2037 (Given - Provider: Fadia Toledo, BECKI) 0837 (Given - Provider: Yolie Corral, BECKI)2034 (Given - Provider: Mike Zayas, RN) 075 (Given - Provider: Yolie Corral RN - Comment: Pt. request) nicotine (NICODERM CQ) 21 mg patch 24 hour 1 patch 1 patch, transdermal, Administer over 24 Hours, Daily, First dose on 08/22/19 at 1645 0845 (Medication Removed - Provider: Bonnie Tran RN)0929 (Medication Applied - Provider: Bonnie Tran RN) 0834 (Medication Applied - Provider: Yolie Corral, RN)0852 (Medication Removed - Provider: Yolie Corral, RN) 0756 (Medication Applied - Provider: Yolie Corral RN)0758 (Medication Removed - Provider: Yolie Corral RN)1717 (Due: Medication Removed - Provider: Automatic Discharge Provider - Comment: Time automatically adjusted from order being discontinued) ofloxacin (OCUFLOX) 0.3 % ophthalmic solution 1 drop 1 drop, each eye, 2 times daily, First dose on 08/22/19 at 1420 0934 (Given - Provider: Bonnie Tran RN)203 (Given - Provider: Fadia Toledo RN) 0834 (Given - Provider: Yolie Corral RN)203 (Given - Provider: Mike Zayas, RN) 0758 (Given - Provider: Yolie Corral RN - Comment: Pt. request) predniSONE (DELTASONE) tablet 80 mg 80 mg, oral, Daily, First dose on Sat08/25/19 at 0900 0754 (Given - Provider: oYlie Corral RN) rivaroxaban (XARELTO) tablet 20 mg 20 mg, oral, Daily with dinner, First dose on Sat08/22/19 at 1800, Administer doses greater than or equal to 15 mg/day with food; doses of 10 mg/day may be administered without regard to meals. If on heparin infusion, discontinue heparin infusion upon first administration of rivaroxaban., Indications: Venous Thrombosis 172 (Given - Provider: Bonnie Tran RN) 1745 (Given - Provider: Yolie Corral RN) sodium chloride 0.9 % irrigation 30 mL 30 mL, swish & spit, 4 times daily, First dose on 08/22/19 at 1700, Use as mouth rinse for oral care. 0930 (Not Given - Provider: Bonnie Tran RN - Reason: Patient/family refused)1114 (Not Given - Provider: Bonnie Tran RN - Reason: Patient/family refused)1602 (Not Given - Provider: Bonnie Tran RN - Reason: Patient/family refused)2038 (Not Given - Provider: Fadia Toledo RN - Reason: Other) 0837 (Not Given - Provider: Yolie Corral RN - Reason: Patient/family refused)1127 (Not Given - Provider: Yolie Corral RN - Reason: Patient/family refused)1719 (Not Given - Provider: Yolie Corral RN - Reason: Patient/family refused)203 (Not Given - Provider: Mike Zayas RN - Reason: Other) 075 (Not Given - Provider: Yolie Corral RN - Reason: Patient/family refused)1152 (Not Given - Provider: Yolie Corral RN - Reason: Patient/family refused)1700 (Due) sodium chloride 0.9% flush 0.5-20 mL 0.5-20 mL, intra-catheter, Every 8 hours scheduled, First dose on Sat08/22/19 at 1420, Flush volume based on line type and size. 0639 (Not Given - Provider: Fadia Toledo RN - Reason: Other)1601 (Not Given - Provider: Bonnie Tran RN - Reason: Patient/family refused)2039 (Not Given - Provider: Fadia Toledo RN - Reason: Other) 0611 (Not Given - Provider: Fadia Toledo RN - Reason: Other)1430 (Given - Provider: Yolie Corral RN)2036 (Given - Provider: Mike Zayas RN) 0614 (Given - Provider: Mike Zaysa RN)1505 (Not Given - Provider: Yolie Corral RN - Reason: Other - Comment: Pt. 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 Inhalation only. 09 (Given - Provider: Dori Otto, BEAM SEALER) tiotropium (SPIRIVA) 18 mcg per inhalation capsule 1 capsule 1 capsule, inhalation, Daily, First dose (after last modification) on Sat08/25/19 at 0900, To ensure drug delivery, the contents of each capsule should be inhaled twice. Inhalation only. 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[employer]), wheezing, Starting on 08/22/19 at 2200 0010 (Given - Provider: Paty Cummings, BRANDEN) albuterol HFA (PROVENTIL HFA,VENTOLIN HFA,PROAIR HFA) 90 mcg/actuation inhaler 2 puff 2 puff, inhalation, Every 4 hours PRN, wheezing, Starting on 08/23/19 at 0100 0638 (Given - Provider: Fadia Toledo RN)1928 (Given - Provider: Bonnie Tran RN) 0627 (Given - Provider: Fadia Toledo RN) aluminum & magnesium wwsopkfsd-hvwdemfgxtc-kua henhydramine-lidocaine (MAGIC MOUTHWASH) suspension 1-1-1 15 mL, swish & swallow, 4 times daily PRN, other, mucositis, Starting on 08/22/19 at 1339, Indications: Chemotherapy-Induced Mucositis bacitracin-polymyxin B (POLYSPORIN) 500-10,000 unit/gram ointment tube topical, Every 4 hours PRN, wound care, Starting on 08/22/19 at 1339, Apply to affected area: other, Indications: Minor Bacterial Skin Infections camphor-menthol (SARNA) 0.5-0.5 % lotion topical, Every 2 hours PRN, itching, Starting on 08/22/19 at 1339, Apply to affected area: other, Indications: Pruritus of Skin dextrose (D10W) 10% bolus 250 mL(Linked Group 2) 250 mL, intravenous, at 1,000 mL/hr, Administer over 15 Minutes, Every 15 min PRN, blood glucose less than 70 mg/dL and UNABLE to swallow/take PO glucose/juice., Starting on 08/22/19 at 1342, After treatment for hypoglycemia, recheck BG followed [...] glucose less than 70 mg/dL, Starting on 08/22/19 at 1342, If patient is alert and able to [...] Call MD for each episode of hypoglycemia. LABEL PRINTER STATES GLUTOSE-15 CONTAINS GLUCOSE 40% W/W (50% W/V), Indications: hypoglycemic disorder glucagon injection 1 mg 1 mg, intramuscular, Administer over 1 Minutes, Every 30 min PRN, low blood sugar, blood glucose less than 70 mg/dL AND no IV access AND unable to take PO glucose/jiuce., Starting on 08/22/19 at 1342, After Glucagon is administered, position patient on [...] line care, with each use, Starting on 08/22/19 at 1339, Do not use with Groshong catheter. Flush volume based on line type, size, and protocol., Indications: Maintain Patency of Indwelling Vascular Catheter loperamide (IMODIUM) capsule 2 mg 2 mg, oral, Every 1 hour PRN, diarrhea, after each liquid stool (ensure that at least one C. diff assay is negative prior to initiating), Starting on 08/22/19 at 1339, Total loperamide dose should not exceed 16 mg in 24 hours., Indications: diarrhea magnesium sulfate 4 g/100 mL in water (premix) 4 g 4 g, intravenous, Administer over 90 Minutes, Every 4 hours PRN, magnesium replacement, Starting on 08/22/19 at 1341, For magnesium level of 1.2-1.5 mg/dL, Indications: hypomagnesemia magnesium sulfate 6 g in sodium chloride 0.9% 250 mL IVPB 6 g, intravenous, at 131 mL/hr, Administer over 120 Minutes, Every 4 hours PRN, magnesium replacement, Starting on 08/22/19 at 1341, For magnesium level less than 1.2 mg/dL and call/notify provider., Indications: hypomagnesemia oxyCODONE (ROXICODONE) tablet 5 mg 5 mg, oral, Every 4 hours PRN, 1st line for pain, Starting on 08/22/19 at 1819, Indications: Pain 1722 (Given - Provider: Bonnie Tran RN) 0447 (Given - Provider: Fadia Toledo, BECKI)1745 (Given - Provider: Yolie Corral RN)2201 (Given - Provider: Mike Zayas, BECKI) 0633 (Given - Provider: Mike Zayas, BECKI) polyvinyl alcohol (LIQUIFILM TEARS) 1.4 % ophthalmic solution 2 drop 2 drop, each eye, Every 4 hours PRN, dry eyes, Starting on 08/22/19 at 1339, Indications: Dry Eye potassium chloride 40 mEq/520 mL in sodium chloride 0.9% (premix) 40 mEq 40 mEq, intravenous, at 130 mL/hr, Administer over 4 Hours, Every 4 hours PRN, potassium replacement, Starting on 08/22/19 at 1341, 40 mEq X1 dose for potassium less [...] 4 hours PRN, potassium replacement, Starting on 08/22/19 at 1341, For potassium 3.2-3.5 mmol/L, give 40 mEq X1 dose (may use IV if oral not tolerated). Do not crush, chew, cut, dissolve, open or otherwise manipulate tablet/capsule., Indications: hypokalemia pramoxine (TRONOLANE) 1% cream rectal, 3 times daily PRN, hemorrhoids, Starting on 08/22/19 at 1339, Apply to affected area: other, Indications: Hemorrhoids sodium chloride (OCEAN) 0.65 % nasal spray 2 spray 2 spray, each nostril, Every 1 hour PRN, other, dryness, Starting on 08/22/19 at 1339, Indications: Dry Nose sodium chloride 0.9% flush 0.5-20 mL 0.5-20 mL, intra-catheter, As needed, line care, Starting on 08/22/19 at 1341, Flush volume based on line type and size. Flush before and after each use. sodium chloride 0.9% infusion 30 mL/hr, intravenous, Continuous PRN, KVO for medication administrations, Starting on 08/22/19 at 1339 sodium chloride 0.9% IVPB 0-250 mL 0-250 mL, intravenous, As needed, flush tubing for blood product administration, Starting on 08/22/19 at 1339, Prime blood tubing and administer amount needed to clear line (usually 50-100 mL) after transfusion complete. white petrolatum-mineral oil (EUCERIN) cream topical, Every 2 hours PRN, dry skin, Starting on 08/22/19 at 1339, Apply to affected area: other, Indications: Dry Skin Linked Groups Order Group 1: insulin regular (HumuLIN R, NovoLIN R) injection 5 Units (COMPLETED)Jump to med 5 Units, intravenous, Once, On 08/23/19 at 0700, For 1 dose And POCT glucose (CANCELED) Once (Routine), On 08/23/19 at 0618, For 1 occurrence, 1 hour after administering IV push Insulin Regular. Communicate result with MD. And POCT glucose (CANCELED) Once (Routine), On 08/23/19 at 0618, For 1 occurrence, 3 hours after administering IV push Insulin Regular. Communicate result with MD. Group 2: dextrose (GLUTOSE) 40 % gel 15 gJump to med 15 g, oral, Every 15 min PRN, low blood sugar, blood glucose less than 70 mg/dL, Starting on 08/22/19 at 1342, If patient is alert and able to [...] Call MD for each episode of hypoglycemia. LABEL PRINTER STATES GLUTOSE-15 CONTAINS GLUCOSE 40% W/W (50% W/V), Indications: hypoglycemic disorder Or dextrose (D10W) 10% bolus 250 mLJump to med 250 mL, intravenous, at 1,000 mL/hr, Administer over 15 Minutes, Every 15 min PRN, blood glucose less than 70 mg/dL and UNABLE to swallow/take PO glucose/juice., Starting on 08/22/19 at 1342, After treatment for hypoglycemia, recheck BG followed [...] Count Last Ordered Date First Ordered Date tiotropium (SPIRIVA) 18 mcg per inhalation capsule 1 capsule 1 08/24/2019 acetaminophen (TYLENOL) tablet 650 mg 2 03/2019 aluminum & magnesium awcxicdui-wuislbofgmr-fglbjulgtgwnjyw-lido aida (MAGIC MOUTHWASH) suspension 1-1-1 1 08/22/2019 bacitracin-polymyxin B (POLY SPORIN) 500-10,000 unit/gram ointment tube 1 08/22/2019 camphor-menthol (SARNA) 0.5-0.5 % lotion 1 08/22/2019 dextrose (D10W) 10% bolus 250 mL 1 08/22/20 19 dextrose (GLUTOSE) 40 % gel 15 g 1 08/22/20 19 glucagon injection 1 mg 1 08/22/2019 heparin 10 unit/mL flush 20-50 Units 1 03/2019 loperamide (IMODIUM) capsule 2 mg 1 019 magnesium sulfate 4 g/100 mL in water (premix) 4 g 1 08/22/2019 magnesium sulfate 6 g in sod ium chloride 0.9% 250 mL IVPB 1 08/22/2019 morphine injection 2 mg 1 08/22/2019 polyvinyl alcohol (LIQUIFILM TEARS) 1.4 % ophthalmic solution 2 drop 1 08/22/2019 potassium chloride 40 mEq/52 0 mL in sodium chloride 0.9% (premix) 40 mEq 1 08/22/2019 potassium chloride ER (KLOR- CON) extended release tablet 40 mEq 1 08/22/2019 pramoxine (TRONOLANE) 1% cream 1 08/22/2019 sodium chloride (OCEAN) 0.65 % nasal spray 2 spray 1 08/22/2019 sodium chloride 0.9 % irrigation 30 mL 1 sodium chloride 0.9% flush 0.5-20 mL 1 03/2019 sodium chloride 0.9% infusion 1 08/22/2019 sodium chloride 0.9% IVPB 0-250 mL 1 2018 white petrolatum-mineral oil (EUCERIN) cream 1 08/22/2019 Lab Orders Without Results Count Last Ordered D ate First Ordered Date POCT GLUCOSE DEVICE 2 08/24/2019 08/23/20 19 Imaging Orders Without Results Count Last Order ed Date First Ordered Date PEP THERAPY/AIRWAY CLEARANCE 4 08/23/2019 08/22/2019 EKG Orders Without Results Count Last Ordered D ate First Ordered Date ECG 12-LEAD 1 08/22/2019 Diet Count Last Ordered Date First Orde red Date ADULT DISCHARGE DIET 1 08/25/2019 Nursing Count Last Ordered Date First Orde red Date DISCHARGE ACTIVITY 1 08/25/2019 DISCHARGE CALL PROVIDER 7 08/25/2019 DISCHARGE INSTRUCTIONS 1 08/25/2019 Consult Count Last Ordered Date First Orde red Date IP CONSULT TO NUTRITION SERVICES 1 08/22/20 19 CORE MEASURES Count Last Ordered Date First Ord ered Date REASON FOR NO VTE PROPHYLAXIS AT ADMISSION 1 08/22/2019 documented in this encounter Additional Health Concerns 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 September 06, 2011 11/26/2010 11/26/201006/18 5:00 AM CDT Rhino/Enterovirus 08/22/2019 08/22/2019 08/25/2019 5:17 PM CDT documented as of this encounter Care Teams Protozoologist Relationship Specialty Start Date End Date Kirt Lindsay DO PCP - General 05/02/17 11/22/20 documented as of this encounter
--- OUTSIDE RECORDS SUMMARY | 2024-11-22 11:05 | XMS_ITS | Encounter Summary ---
Author Organization [facility] Address [address] [place] [address] Phone Care Team Providers Care Nonprofit Manager Name Role Phone Kirt Lindsay DO Primary Care Provider [phone]- [phone] Encounter Details Date Type Department Care Team (Late st Contact Info) Description 08/21/2019 Orders Only [facility] Oncology [address] [place] [address] [place] [address] Eneida Gibson MD [address] [place] [address] Type 2 diabetes mellitus with hyperosmolarity without coma, with long-term current use of insulin ([facility]) (Primary Dx) Social History Tobacco Use Types Packs/Day Years Used Date Smoking Tobacco: Every Day Smokeless Tobacco: Never Comments:Pt not interested i n smoking cessation program Sex and Gender Information Value Date Recorded Sex Assigned at Not on file 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 Gender Identity Not on file Sexual Orientation Not on file documented as of this encounter Ordered Prescriptions Prescription Sig Dispense Quantity Refills Last Filled Start Date End Date gabapentin (NEURONTIN) 300 mg capsuleIndications:Ty pe 2 diabetes mellitus with hyperosmolarity without coma, with long-term current use of insulin (HCC) TAKE 1 PO QD 30 capsule 3 08/21/2019 0 gabapentin (NEURONTIN) 100 mg capsuleIndications:Ty pe 2 diabetes mellitus with hyperosmolarity without coma, with long-term current use of insulin (HCC) TAKE 1 PO QD 30 capsule 3 08/21/2019 9 documented in this encounter Plan of Treatment [...] documented as of this encounter Care Teams Nonprofit Manager Relationship Specialty Start Date End Date Kirt Lindsay DO PCP - General 05/02/17 11/22/20 documented as of this encounter
--- OUTSIDE RECORDS SUMMARY | 2024-11-22 11:05 | XMS_ITS | Encounter Summary ---
Author Organization [facility] Address [address] [place] [address] Phone Care Team Providers Care Systematic Theology Professor Name Role Phone Kirt Lindsay DO Primary Care Provider [phone]- [phone] Encounter Details Date Type Department Care Team (Late st Contact Info) Description 08/20/2019 Telephone 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 We are not allowed to put him any other place. We need permission, and had to send to you. Evelyn not here, and I did not think Mi would be able to tell us if he could go in an C at a different time. documented in this encounter Plan of Treatment Not on file documented as of this encounter Visit Diagnoses Not on filedocumented in this encounter 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 Care Teams Systematic Theology Professor Relationship Specialty Start Date End Date Kirt Lindsay DO PCP - General 05/02/17 11/22/20 documented as of this encounter
--- OUTSIDE RECORDS SUMMARY | 2024-11-22 11:05 | XMS_ITS | Encounter Summary ---
Author Organization [facility] Address [address] [place] [address] Phone Care Team Providers Care Laborer Ammunition Assembly Name Role Phone Kirt Lindsay DO Primary Care Provider [phone]- [phone] Encounter Details Date Type Department Care Team (Late st Contact Info) Description 06/02/[address] 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 Gender Identity Not on file Sexual Orientation Not on file documented as of this encounter Ordered Prescriptions Prescription Sig Dispense Quantity Refills Last Filled Start Date End Date insulin NPH (HumuLIN N, NovoLIN N) 100 unit/mL (3 mL) insulin penIndications:Type 2 diabetes mellitus with hyperosmolarity without coma, with long-term current use of insulin (HCC) Inject 15 Units under the skin daily with breakfast Take with prednisone 1 pen 2 06/02/2019 07/01/20 19 documented in this encounter Plan of Treatment [...] documented as of this encounter Care Teams Laborer Ammunition Assembly Relationship Specialty Start Date End Date Kirt Lindsay DO PCP - General 05/02/17 11/22/20 documented as of this encounter
--- OUTSIDE RECORDS SUMMARY | 2024-11-22 11:05 | XMS_ITS | Encounter Summary ---
Author Organization [facility] Address [address] [facility] [address] [place] [address] Phone Care Team Providers Care Hogshead Mat Inspector Name Role Phone Kirt Lindsay DO Primary Care Provider [phone]- [phone] Reason for Visit * Reason Comments Osteopenia * Diagnostic Imaging (Routine) - Closed Specialty Diagnoses / Procedures Referred By Ana M t Referred To Contact Diagnoses Type 2 diabetes mellitus with hyperosmolarity without coma, with long-term current use of insulin (HCC) Osteopenia, unspecified location Procedures Dexa Axial Skeleton Bone Density 1 or 2 Site Eneida Gibson MD Phone: tel: [facility] Referral ID Status Reason Start Date Expiration Date Visits Re quested Visits Authorized [id number] Closed 05/29/2019 12/07/2020 1 1 Encounter Details Date Type Department Care Team (Latest Contact Info) Description 08/07/2019 9:50 AM CDT Clinical Support [place] [id number] [facility] [address] [place] [address] [place] [id number] Type 2 diabetes mellitus with hyperosmolarity without coma, with long-term current use of insulin (CMS/HCC); Osteopenia, unspecified location; Other specified disorders of bone density and structure, left thigh; 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; 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 Social History Tobacco Use Types Packs/Day Years Used Date Smoking Tobacco: Every Day Smokeless Tobacco: Never Comments:Pt not interested i n smoking cessation program Sex and Gender Information Value Date Recorded Sex Assigned at Not on file 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 Gender Identity Not on file Sexual Orientation Not on file documented as of this encounter Plan of Treatment Not on file documented as of this encounter Procedures Procedure Name Priority Date/Time Associated Diagnosis Comments DEXA AXIAL SKELETON BONE DENSITY 1 OR MORE SITES Schedule Routine, Read Routine (OP Routine) 08/07/2019 10:34 AM CDT Type 2 diabetes mellitus with hyperosmolarity without coma, with long-term current use of insulin ([facility]) Osteopenia, unspecified location documented in this encounter Results * Dexa Axial Skeleton Bone Density 1 or 2 Site (08/07/2019 10:34 AM CDT) Anatomical Region Laterality Modality Body N/A Radiographic Tiffany ging Narrative 08/10/2019 12:29 AM CDT Patient Name: Brady Jones Date of : 1965 Date of scan: 08/07/2019 Bone mineral density was performed on a [employer] Discovery Densitometer. ?? Machine Cross-calibration and Precision studies have been performed with a least significant change of 0.024 g/cm at the spine, 0.020 g/cm at the total proximal femur, and 0.014g/cm at the forearm. HISTORY: ??This is a 53 y.o. male with a [...] risk factor for fracture. Other factors include patient? s age, previous osteoporotic fracture or prior fracture as an adult, loss of height of greater than 2 inches, corticosteroid use, risk of falling, risk of injury, and family history of osteoporosis. Not everyone with low bone mineral density has osteoporosis. Osteomalacia and other metabolic bone disorders should also be considered where indicated. ??Patients who have osteoporosis should be evaluated for specific diseases and conditions (secondary causes) that may cause or contribute to bone loss. Consider repeating this study in 1-2 years to assess the patient? s response to treatment, if applicable. It is recommended that any follow up exam be performed on the same machine if possible for better accuracy. DEFINITIONS: Osteoporosis: ??BMD at or below -2.5 T-score Osteopenia (low bone mass): ??BMD between -1.0 and-2.5 T-score. The Bone Health Program adopts the following WHO definitions: Osteoporosis: ??BMD below -2.5 S.D. as compared to the BMD of young normal adults. Osteopenia or Low Bone Mass: ??BMD between -1.0 and -2.5 S.D. below the BMD of young normal adults. Normal Bone Density: ??BMD equal to or greater than -1.0 S.D. as compared to the BMD of young normal adults. References: 1) Jonathan, Annals of Internal Medicine 114(11): ??919-923 (1990) 2) Jenn, Lancet 341 : 72-75 (1992) 3) Adarsh, Journal Bone and Mineral Research 7(6): 633-8 (1991) 4) Osbaldo, Journal Bone and Mineral Research 8(10):1227-33 (1992) The history and data sections of the bone mineral density scan were prepared by Kait Helms)(Casi)(), CBDT who is accredited by the International Society of Clinical Densitometry. The overall patient assessment and scan interpretation were performed by Jamie Porter MD who is certified by the International Society of Clinical Densitometry. 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
--- OUTSIDE RECORDS SUMMARY | 2024-11-22 11:05 | XMS_ITS | Encounter Summary ---
Author Organization [facility] Address [address] [place] [address] Phone Care Team Providers Care Magnetic Tape Winder Name Role Phone Kirt Lindsay DO Primary Care Provider [phone]- [phone] Encounter Details Date Type Department Care Team (Late st Contact Info) Description 08/07/2019 Orders Only [facility] Oncology [id number] [facility] 7th [place] [address] [place] [address] Penny Valero, RN Type 2 diabetes mellitus with hyperosmolarity without coma, with long-term current use of insulin ([facility]/HCC) (Primary Dx) Social History Tobacco Use Types Packs/Day Years Used Date Smoking Tobacco: Every Day Smokeless Tobacco: Never Comments:Pt not interested i n smoking cessation program Sex and Gender Information Value Date Recorded Sex Assigned at Not on file 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 Gender Identity Not on file Sexual Orientation Not on file documented as of this encounter Ordered Prescriptions Prescription Sig Dispense Quantity Refills Last Filled Start Date End Date BASAGLJHON OAKES U-100 INSULIN 100 unit/mL (3 mL) insulin penIndications:Type 2 diabetes mellitus with hyperosmolarity without coma, with long-term current use of insulin (HCC) INJECT 30 UNITS Q AM 5 pen 3 08/07/2019 9 furosemide (LASIX) 20 mg tabletIndications:Typ e 2 diabetes mellitus with hyperosmolarity without coma, with long-term current use of insulin (HCC) Take 1 tablet (20 mg total) by mouth daily As needed. 30 tablet 08/07/2019 0 documented in this encounter Plan of Treatment Not on file documented as of this encounter Visit Diagnoses Diagnosis Type 2 diabetes mellitus with hyperosmolarity without coma, with long-term current use of insulin (HCC)- Primary documented in this encounter Discontinued Medications Medication Sig Discontinue Reason Start Date End Da te BASAGLAR ESSIEIKPEN U-100 INSULIN 100 unit/mL (3 mL) insulin pen INJECT 18 UNITS SUBCUTANEOUSLY ONCE DAILY Reorder 08/03/2019 08/07/2019 documented as of this encounter 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 Care Teams Magnetic Tape Winder Relationship Specialty Start Date End Date Kirt Lindsay DO PCP - General 05/02/17 11/22/20 documented as of this encounter
--- OUTSIDE RECORDS SUMMARY | 2024-11-22 11:05 | XMS_ITS | Encounter Summary ---
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
--- OUTSIDE RECORDS SUMMARY | 2024-11-22 11:05 | XMS_ITS | Encounter Summary ---
Author Organization [facility] Address [address] [place] [address] Phone Care Team Providers Care Guest Services Coordinator Name Role Phone Kirt Lindsay DO Primary Care Provider [phone]- [phone] Encounter Details Date Type Department Care Team (Latest Contact Info) Description 08/07/2019 11:40 AM CDT Office Visit [facility] Oncology [address] [facility] Advanced Medicine 7th [place] [address] [place] [address] Eneida Gibson MD [address] [place] [address] Vitamin D deficiency (Primary Dx); Type 2 diabetes mellitus with hyperosmolarity without coma, with long-term current use of insulin (CMS/HCC); Osteopenia, unspecified location; Pure hypercholesterolemia Social History Tobacco Use Types Packs/Day Years Used Date Smoking Tobacco: Every Day Smokeless Tobacco: Never Comments:Pt not interested i n smoking cessation program Sex and Gender Information Value Date Recorded Sex Assigned at Not on file 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 Gender Identity Not on file Sexual Orientation Not on file documented as of this encounter Last Filed Vital Signs Vital Sign Reading Time Taken Comments Blood Pressure 119/71 08/07/2019 11:12 AM CDT Pulse 67 08/07/2019 11:12 AM CDT Temperature 36.5 ??C (97.7 ??F) 08/07/2019 11:12 AM C DT Respiratory Rate 18 08/07/2019 11:12 AM CDT Oxygen Saturation 96% 08/07/2019 11:12 AM CDT Inhaled Oxygen Concentration - - Weight 73 kg (161 lb) 08/07/2019 11:12 AM CDT Height - - Body Mass Index 22.79 11/22/2018 4:50 PM DESKTOP ADMINISTRATOR documented in this encounter Patient Instructions * Patient Instructions* Eneida Gibson MD - 08/07/2019 11:40 AM CDT Increase Basaglar to 30 units in the morning Take Novolog 10 units before every meal Use Novolog sliding scale: 151-200: 1 units 201-250: 2 units 251-300: 3 units 301-350: 4 units 351-400: 5 units >400: 6 units documented in this encounter Progress Notes * Eneida Gibson MD - 08/07/2019 11:40 AM CDT Subjective Patient is a 53 y.o. 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 He was admitted to the hospital a couple weeks ago for LE edema and high blood sugars. His prednisone was increased to 40 mg daily again. He is tapering his dose by 10 mg every 5 days. He stopped taking metformin because he was told it can cause lung issues. He hasn't followed up with the BMT yet. He currently takes Omhoxbhj82 units QAM, and Novolog SS. Also uses NPH randomly. He checks BS 1-2 times daily. His BS are in the 300- 400s. He has been taking OTC vitamin D and weekly ergocalciferol. Drinks milk and eats cheeses. Denies falls or fractures. No back pain. He doesn't work. Has neuropathy and takes gabapentin at night occasionally. He doesn't have retinopathy, has cataracts from prednisone use. No nephropathy. Takes atorvastatin 40 mg daily. Still smokes on and off. DIAGNOSES: 1. 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 T2DM 4. Hyperlipidemia-on atorvastatin 5. Osteopenia. CURRENT MEDICATIONS: Current Outpatient Medications: ??? acyclovir (ZOVIRAX) 400 mg tablet, TAKE 1 TABLET BY MOUTH EVERY 8 HOURS, Disp: 270 tablet, Rfl:1 ??? ADVAIR DISKUS 100-50 mcg/dose diskus inhaler, INHALE 1 DOSE BY MOUTH TWICE DAILY, Disp: 60 each, Rfl: 3 ??? atorvastatin (LIPITOR) 40 mg tablet, Take 1 tablet (40 mg total) by mouth daily, Disp: 30 tablet, Rfl: 6 ??? BASAGLAR KWIKPEN U-100 INSULIN 100 unit/mL (3 mL) insulin pen, INJECT 18 UNITS SUBCUTANEOUSLY ONCE DAILY, Disp: , Rfl: 1 ??? blood glucose diagnostic strip, Check blood sugar tid, Disp: 100 each, Rfl: 4 ??? blood-glucose meter misc, 1 Device 3 (three) times a day, Disp: 1 each, Rfl: 0 ??? ergocalciferol (VITAMIN D) 50,000 unit capsule, Take 1 capsule (50,000 Units total) by mouth once a week, Disp: 4 capsule, Rfl: 11 ??? glucagon (glucagon) 1 mg kit, USE DIRECTED AT SCHOOL AND HOME, Disp: , Rfl: ??? insulin NPH (HumuLIN N, NovoLIN N) 100 unit/mL (3 mL) insulin pen, Inject 15 Units under the skin daily with breakfast Take with prednisone, Disp: 4 pen, Rfl: 3 ??? levoFLOXacin (LEVAQUIN) 750 mg tablet, Take 750 mg by mouth nightly at bedtime, Disp: , Rfl: 0 ??? magnesium oxide (MAG-OX) 400 mg (241.3 mg elemental magnesium) tablet, TAKE 1 TABLET BY MOUTH ONCE DAILY IN THE MORNING, Disp: , Rfl: 0 ??? metFORMIN XR (GLUCOPHAGE XR) 500 mg 24 hr tablet, Take 2 tablets (1,000 mg total) by mouth 2 (two) times a day, Disp: 120 tablet, Rfl: 3 ??? montelukast (SINGULAIR) 10 mg tablet, Take 1 tablet (10 mg total) by mouth nightly., Disp: 30 tablet, Rfl: 11 ??? mycophenolate mofetil (CELLCEPT) 500 mg tablet, TAKE 2 TABLETS BY MOUTH TWICE DAILY, Disp: 180 tablet, Rfl: 3 ??? NOVOLOG FLEXPEN U-100 INSULIN 100 unit/mL (3 mL) insulin pen, INJECT 9 UNITS SUBCUTANEOUSLY THREE TIMES DAILY BEFORE MEAL(S), Disp: , Rfl: 0 ??? ofloxacin (OCUFLOX) 0.3 % ophthalmic solution, Administer 1 drop into both eyes 4 (four) times a day., Disp: 5 mL, Rfl: 11 ??? pen needle, diabetic 31 gauge x 5/16 needle, Use to inject 1-4 times daily as directed., Disp:100 each, Rfl: 11 ??? predniSONE (DELTASONE) 10 mg tablet, TAKE 4 TABLETS BY MOUTH ONCE DAILY, Disp: 120 tablet, Rfl:3 ??? predniSONE (DELTASONE) 5 mg tablet, TAKE 8 TABLETS BY MOUTH ONCE DAILY, Disp: 240 tablet, Rfl: 3 ??? sildenafil, antihypertensive, (REVATIO) 20 mg tablet, TAKE ONE TO FIVE TABLETS BY MOUTH DAILY NEEDED, Disp: , Rfl: 12 ??? sodium chloride-sodium bicarbonate (NEILMED SINUS RINSE, AYR) packet with rinse device, Administer 240 mL (1 packet total) into each nostril daily as needed (sinus congestion)., Disp: 1 each, Rfl: 0 ??? sulfamethoxazole-trimethoprim (BACTRIM DS,SEPTRA DS) 800-160 mg per tablet, TAKE 1 TABLET BY MOUTH TWICE DAILY ON Saturday., Disp: , Rfl: 6 ??? tacrolimus (PROGRAF) 0.5 mg capsule, Take 1 capsule (0.5 mg total) by mouth every other day., Disp: , Rfl: ??? tacrolimus (PROGRAF) 0.5 mg capsule, TAKE 1 CAPSULE BY MOUTH ONCE DAILY, Disp: 60 capsule, Rfl:6 ??? VENTOLIN HFA 90 mcg/actuation inhaler, INHALE 1 TO 2 PUFFS BY MOUTH EVERY 4 HOURS NEEDED FORSHORTNESS OF BREATH, Disp: 1 Inhaler, Rfl: 3 ??? XARELTO 20 mg tablet, TAKE 1 TABLET BY MOUTH ONCE DAILY WITH FOOD, Disp: 60 tablet, Rfl: 1 ??? HUMALOG KWIKPEN INSULIN 100 unit/mL insulin pen, Inject 3-5 Units under the skin 3 (three) times a day before meals (Patient not taking: Reported on 05/29/2019), Disp: 2 pen, Rfl: 6 Review of Systems: Review of Systems All other systems reviewed and are negative. As per HPI. Objective Vitals: Most Recent : Vitals BP 119/71 (BP Location: Right arm) Pulse 67 Temp 36.5 ??C (97.7 ??F) (Oral) Resp 18 Wt 73 kg (161 lb) SpO2 96% BMI 22.79 kg/m?? Physical Exam: Physical Exam Constitutional: He is oriented to person, place, and time. He appears well- developed and well-nourished. HENT: Head: Normocephalic and atraumatic. Eyes: Conjunctivae are normal. Cardiovascular: Normal rate, regular rhythm and intact distal pulses. No murmur heard. Pulmonary/Chest: Breath sounds normal. He has no wheezes. He has no rales. Abdominal: Soft. Bowel sounds are normal. He exhibits no distension. There is no tenderness. Musculoskeletal: He exhibits edema (3+ LE edema). He exhibits no deformity. Feet: Right Foot: Skin Integrity: Positive for dry skin. Left Foot: Skin Integrity: Positive for dry skin. Neurological: He is oriented to person, place, and time. Skin: Skin is warm. No rash noted. No erythema. Psychiatric: He has a normal mood and affect. Lab/Radiology/Diagnostic Review: Laboratory review: reviewed the laboratory result(s) in the last 24 hours: Recent Results (from the past 24 hour(s)) PTH Collection Time: 08/07/19 10:55 AM Result Value Ref Range PTH 54 15 - 65 pg/mL Hemoglobin A1c Collection Time: 08/07/19 10:55 AM Result Value Ref Range Hgb A1C 14.2 (H) 4.0 - 5.6 % Estimated Average Glucose 361 mg/dL Vitamin D 25 hydroxy Collection Time: 08/07/19 11:11 AM Result Value Ref Range Vitamin D, 25-hydroxy 27 (L) 30 - 80 ng/mL Comprehensive metabolic panel Collection Time: 08/07/19 11:11 AM Result Value Ref Range Sodium 140 135 - 145 mmol/L Potassium, pl 4.3 3.3 - 4.9 mmol/L Chloride 97 97 - 110 mmol/L CO2 29 22 - 32 mmol/L Anion gap 14 2 - 15 mmol/L BUN 26 (H) 8 - 25 mg/dL Creatinine 0.82 0.80 - 1.30 mg/dL Glucose 388 (H) 70 - 199 mg/dL Calcium 9.4 8.5 - 10.3 mg/dL Bilirubin, total 0.4 0.1 - 1.2 mg/dL Protein, pl 6.5 6.5 - 8.5 g/dL Albumin 4.0 3.5 - 5.0 g/dL Alk phos 121 40 - 130 Units/L ALT 103 (H) 7 - 55 Units/L AST 51 (H) 10 - 50 Units/L DEXA 07/2018 BONE MINERAL DENSITY OF THE LUMBAR SPINE Bone Mineral Density (BMD) of the lumbar spine was measured from L1-L4 and the average density was calculated to be 1.022 gm/cm. This corresponds to a T-score standard deviations from the mean of young adults of -0.6. When compared to the previous study of 05/31/2017 ??there has been a measured -0.020 gm/cm -2.0 % decrease which is considered significant. BONE MINERAL DENSITY OF THE PROXIMAL FEMUR Bone Mineral Density (BMD) of the left hip total was found to be 0.758 gm/cm2. This corresponds to a T-score standard deviations from the mean of young adults of -1.8. Femoral neck is 0.618 gm/cm2 with a T-score ??of -2.3. When compared to the previous study of 05/31/2017 there has been no significant change noted. Assessment /Plan Problem List Items Addressed This Visit High Type 2 diabetes mellitus (CMS/HCC) -poorly controlled, exacerbated by prednisone use -Hgb [...] no retinopathy, has cataracts -BP at goal Relevant Medications NOVOLOG FLEXPEN U-100 INSULIN 100 unit/mL (3 mL) insulin pen Other Relevant Orders Clinic Appointment Request Follow up; ARNIE GIBSON MD; Clinic Appointment Location: [facility] Lab Draw Appt Request Arm Draw or Central Line Draw? Arm; What is your ordering location? [facility]; [facility] Hemoglobin A1c Vitamin D 25 hydroxy Unprioritized Osteopenia -DEXA scan done today revealed stable BMD -will continue vitamin D supplementation and dietary calcium Relevant Orders Clinic Appointment Request Follow up; ARNIE GIBSON MD; Clinic Appointment Location: [facility] Lab Draw Appt Request Arm Draw or Central Line Draw? Arm; What is your ordering location? [facility]; [facility] Hemoglobin A1c Vitamin D 25 hydroxy Pure hypercholesterolemia -LDL at goal -will continue atorvastatin 40 mg daily Vitamin D deficiency - Primary -vitamin D levels improving -will continue current regimen RTC in 3 months. I reinforced that he needs to schedule appointment with BMT. documented in this encounter Miscellaneous Notes * Assessment & Plan Note - Eneida Gibson MD - 08/07/2019 1:34 PM CDTAssociated Problem(s): Pure hypercholesterolemia -LDL at goal -will continue atorvastatin 40 mg daily * Assessment & Plan Note - Eneida Gibson MD - 08/07/2019 1:34 PM CDTAssociated Problem(s): Vitamin D deficiency -vitamin D levels improving -will continue current regimen * Assessment & Plan Note - Eneida Gibson MD - 08/07/2019 1:33 PM CDTAssociated Problem(s): Osteopenia -DEXA scan done today revealed stable BMD -will continue vitamin D supplementation and dietary calcium * Assessment & Plan Note - Eneida Gibson MD - 08/07/2019 1:32 PM CDTAssociated Problem(s): Type 2 diabetes mellitus (HCC) -poorly [...] no retinopathy, has cataracts -BP at goal documented in this encounter Plan of Treatment Not on file documented as of this encounter Results * (ABNORMAL) Vitamin D 25 hydroxy (11/20/2019 9:29 AM DESKTOP ADMINISTRATOR) Vitamin D 25-OH 16(L) 30 - 80 ng/mL [facility] Blood specimen (specimen) 11/20/2019 9:29 AM DESKTOP ADMINISTRATOR 11/20/2019 10:09 AM DESKTOP ADMINISTRATOR Eneida Gibson MD LAB BLOOD ORDERABLES Final Resul t [facility] [place] [address] * (ABNORMAL) Hemoglobin A1c (11/20/2019 9:29 AM DESKTOP ADMINISTRATOR) Hgb A1C 13.5(H) 4.0 - 5.6 % [facility] Estimated Average Glucose 341 mg/dL [facility] Comment: The ADA recommends reporting an estimated Average Glucose (eAG) with all Hemoglobin A1c results using the equation derived from a study of 507 normal and diabetic adults. ??Minority populations were underrepresented and children were not included. ?? (Diabetes Care 31:4661-1193, 2008). ??The eAG is not equivalent to a fasting glucose. Blood specimen (specimen) 11/20/2019 9:29 AM DESKTOP ADMINISTRATOR 11/20/2019 10:05 AM DESKTOP ADMINISTRATOR Eneida Gibson MD LAB BLOOD ORDERABLES Final Resul t [facility] [place] [address] * (ABNORMAL) Comprehensive metabolic panel (11/20/2019 9:29 AM DESKTOP ADMINISTRATOR) Sodium 138 135 - 145 mmol/L [facility] Potassium, pl 3.9 3.3 - 4.9 mmol/L [facility] Chloride 97 97 - 110 mmol/L [facility] CO2 35(H) 22 - 32 mmol/L [facility] Anion gap 6 2 - 15 mmol/L [facility] BUN 15 8 - 25 mg/dL [facility] Creatinine 0.74(L) 0.80 - 1.30 mg/dL [facility] Glucose 402(H) 70 - 199 mg/dL [facility] Comment: Interpretive Data Fasting glucose >/= [...] 2017. Calcium 9.4 8.5 - 10.3 mg/dL [facility] Bilirubin, total 0.3 0.1 - 1.2 mg/dL [facility] Protein, pl 7.0 6.5 - 8.5 g/dL [facility] Albumin 3.7 3.5 - 5.0 g/dL [facility] Alk phos 118 40 - 130 Units/L [facility] ALT 30 7 - 55 Units/L [facility] AST 18 10 - 50 Units/L [facility] Blood specimen (specimen) 11/20/2019 9:29 AM DESKTOP ADMINISTRATOR 11/20/2019 10:05 AM DESKTOP ADMINISTRATOR Eneida Gibson MD LAB BLOOD ORDERABLES Final Resul t [facility] [place] [address] documented in this encounter Visit Diagnoses Diagnosis Vitamin D deficiency- Primary Type 2 diabetes mellitus with hyperosmolarity without coma, with long-term current use of insulin (HCC) Osteopenia, unspecified location Pure hypercholesterolemia documented in this encounter Historical Medications * This list may reflect changes made after this encounter. magnesium oxide (MAG-OX) 400 mg (241.3 mg elemental magnesium) tablet TAKE 1 TABLET BY MOUTH ONCE DAILY IN THE MORNING 0 07/25/2019 9 levoFLOXacin (LEVAQUIN) 750 mg tablet Take 750 mg by mouth nightly at bedtime 0 07/25/2019 9 BASAGLAR KWIKPEN U-100 INSULIN 100 unit/mL (3 mL) insulin pen INJECT 18 UNITS SUBCUTANEOUSLY ONCE DAILY 1 08/03/2019 9 NOVOLOG FLEXPEN U-100 INSULIN 100 unit/mL (3 mL) insulin pen INJECT 9 UNITS SUBCUTANEOUSLY THREE TIMES DAILY BEFORE MEAL(S) 0 07/31/2019 9 added in this encounter Orders Appointment Requests Count Last Ordered Date Fi rst Ordered Date ONCBCN CLINIC APPOINTMENT REQUEST 1 019 documented in this encounter 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
--- OUTSIDE RECORDS SUMMARY | 2024-11-22 11:05 | XMS_ITS | Encounter Summary ---
Author Organization [facility] Address [address] [facility] [address] [place] [address] Phone Care Team Providers Care Campus Interviews Intern Name Role Phone Kirt Lindsay DO Primary Care Provider +1- [phone] Encounter Details Date Type Department Care Team (Late st Contact Info) Description 08/07/2019 Orders Only [facility] Oncology [address] [facility] Advanced Medicine 7th [place] [address] [place] [address] Penny Valero, RN Type 2 diabetes mellitus with hyperosmolarity without coma, with long-term current use of insulin (CMS/[facility]) (Primary Dx); Type 2 diabetes mellitus with hyperglycemia, with long-term current use of insulin (CMS/[facility]) Social History Tobacco Use Types Packs/Day Years Used Date Smoking Tobacco: Every Day Smokeless Tobacco: Never Comments:Pt not interested i n smoking cessation program Sex and Gender Information Value Date Recorded Sex Assigned at Not on file 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 5 pen 3 08/07/2019 11/27/2019 documented in this encounter Plan of Treatment Not on file documented as of this encounter Visit Diagnoses Diagnosis Type 2 diabetes mellitus with hyperosmolarity without coma, with long-term current use of insulin (HCC)- Primary Type 2 diabetes mellitus with hyperglycemia, with long-term current use of insulin (HCC) documented in this encounter Discontinued Medications Medication Sig Discontinue Reason Start Date End Da te HUMALOG KWIKPEN INSULIN 100 unit/mL insulin penIndications:type 2 diabetes mellitus Inject 3-5 Units under the skin 3 (three) times a day before meals Reorder 02/26/2019 08/07/2019 documented as of this encounter 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 Care Teams Campus Interviews Intern Relationship Specialty Start Date End Date Kirt Lindsay DO PCP - General 05/02/17 11/22/20 documented as of this encounter
--- OUTSIDE RECORDS SUMMARY | 2024-11-22 11:05 | XMS_ITS | Encounter Summary ---
Author Organization [facility] Address [address] [place] [address] Phone Care Team Providers Care Radioactive Waste Disposal Dispatcher Name Role Phone Kirt Lindsay DO Primary Care Provider +1- [phone] Encounter Details Date Type Department Care Team (Late st Contact Info) Description 08/07/2019 Orders Only [facility] Oncology [address] 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
--- OUTSIDE RECORDS SUMMARY | 2024-11-22 11:05 | XMS_ITS | Encounter Summary ---
Author Organization [facility] Address [address] [place] [address] Phone Care Team Providers Care Bobbin Fixer Name Role Phone Kirt Lindsay DO Primary Care Provider +1- [phone] Encounter Details Date Type Department Care Team (Late st Contact Info) Description 08/07/2019 10:30 AM CDT Lab [facility] Oncology [address] [facility] 7th [place] [address] [place] [address] Type 2 diabetes mellitus with hyperosmolarity without coma, with long-term current use of insulin (CMS/HCC); Osteopenia, unspecified location Social History Tobacco Use Types Packs/Day Years Used Date Smoking Tobacco: Every Day Smokeless Tobacco: Never Comments:Pt not interested i n smoking cessation program Sex and Gender Information Value Date Recorded Sex Assigned at Not on file 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 Gender Identity Not on file Sexual Orientation Not on file documented as of this encounter Plan of Treatment Not on file documented as of this encounter Procedures Procedure Name Priority Date/Time Associated Diagnosis Comments VITAMIN D 25 HYDROXY Routine 08/07/2019 11:11 AM CDT Type 2 diabetes mellitus with hyperosmolarity without coma, with long-term current use of insulin (CMS/HCC) Osteopenia, unspecified location COMPREHENSIVE METABOLIC PANEL Routine 08/07/2019 11:11 AM CDT Type 2 diabetes mellitus with hyperosmolarity without coma, with long-term current use of insulin (CMS/HCC) Osteopenia, unspecified location BETA-CROSSLAPS (BETA-CTX) Routine 08/07/2019 10:55 AM CDT Type 2 diabetes mellitus with hyperosmolarity without coma, with long-term current use of insulin ([facility]) Osteopenia, unspecified location PTH Routine 08/07/2019 10:55 AM CDT Type 2 diabetes mellitus with hyperosmolarity without coma, with long-term current use of insulin (CMS/HCC) Osteopenia, unspecified location HEMOGLOBIN A1C Routine 08/07/2019 10:55 AM CDT Type 2 diabetes mellitus with hyperosmolarity without coma, with long-term current use of insulin ([facility]) Osteopenia, unspecified location documented in this encounter Results * (ABNORMAL) Comprehensive metabolic panel (08/07/2019 11:11 AM CDT) Sodium 140 135 - 145 mmol/L [facility] Potassium, pl 4.3 3.3 - 4.9 mmol/L [facility] Chloride 97 97 - 110 mmol/L [facility] CO2 29 22 - 32 mmol/L [facility] Anion gap 14 2 - 15 mmol/L [facility] BUN 26(H) 8 - 25 mg/dL [facility] Creatinine 0.82 0.80 - 1.30 mg/dL [facility] Glucose 388(H) 70 - 199 mg/dL [facility] Comment: Interpretive Data Fasting glucose >/= [...] 2017. Calcium 9.4 8.5 - 10.3 mg/dL [facility] Bilirubin, total 0.4 0.1 - 1.2 mg/dL [facility] Protein, pl 6.5 6.5 - 8.5 g/dL [facility] Albumin 4.0 3.5 - 5.0 g/dL [facility] Alk phos 121 40 - 130 Units/L [facility] ALT 103(H) 7 - 55 Units/L [facility] AST 51(H) 10 - 50 Units/L [facility] Blood specimen (specimen) 08/07/2019 11:11 AM CDT 08/07/2019 11:11 AM CDT Eneida Gibson MD LAB BLOOD ORDERABLES Final Resul t Performing Organization Address [facility] de Phone Number [address] [address] * (ABNORMAL) Vitamin D 25 hydroxy (08/07/2019 11:11 AM CDT) Pathologist [facility] Vitamin D 25-OH 27(L) 30 - 80 ng/mL [facility] Blood specimen (specimen) 08/07/2019 11:11 AM CDT 08/07/2019 11:11 AM CDT Eneida Gibson MD LAB BLOOD ORDERABLES Final Resul t Performing Organization Address [facility] Co de Phone Number [address] [address] * (ABNORMAL) Hemoglobin A1c (08/07/2019 10:55 AM CDT) Hgb A1C 14.2(H) 4.0 - 5.6 % [facility] Estimated Average Glucose 361 mg/dL [facility] Comment: The ADA recommends reporting an estimated Average Glucose (eAG) with all Hemoglobin A1c results using the equation derived from a study of 507 normal and diabetic adults. ??Minority populations were underrepresented and children were not included. ?? (Diabetes Care 31:5385-3649, 2008). ??The eAG is not equivalent to a fasting glucose. Blood specimen (specimen) 08/07/2019 10:55 AM CDT 08/07/2019 11:10 AM CDT Eneida Gibson MD LAB BLOOD ORDERABLES Final Resul t Performing Organization Address [facility] de Phone Number [address] [address] * PTH (08/07/2019 10:55 AM CDT) PTH 54 15 - 65 pg/mL [facility] Blood specimen (specimen) 08/07/2019 10:55 AM CDT 08/07/2019 11:08 AM CDT Eneida Gibson MD LAB BLOOD ORDERABLES Final Resul t Performing Organization Address [facility] de Phone Number [facility] [address] [place] [address] * Beta-CrossLaps (Beta-CTx) (08/07/2019 10:55 AM CDT) Pathologist [facility] Beta-CTx 359 pg/mL [facility] Comment: REFERENCE VALUE [phone] (18-30 y) [phone] (31-50 y) [phone] (51-70 y) Not established (>70 y) ADDITIONAL INFORMATION This test has been modified from the ball truing machine operator's instructions. Its performance characteristics were determined by [facility] in a manner consistent with CLIA requirements. This test has not been cleared or approved by the U.S. Food and Drug Administration. Test Performed by: [facility]Note 2] [address] [place] [address] Reconcilement Clerk: Neftaly Keita M.D. Ph.D.; CLIA# [id number] Blood specimen (specimen) 08/07/2019 10:55 AM CDT 08/07/2019 11:23 AM CDT us Eneida Gibson MD LAB BLOOD ORDERABLES Final Resul t [facility] [address] [place] [address] documented in this encounter Visit Diagnoses Diagnosis Type 2 diabetes mellitus with hyperosmolarity without coma, with long-term current use of insulin (HCC) Osteopenia, unspecified location documented in this encounter Orders Appointment Requests Count Last Ordered Date Fi rst Ordered Date ONCBCN LAB APPOINTMENT 1 08/07/2019 documented in this encounter 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 Care Teams Bobbin Fixer Relationship Specialty Start Date End Date Kirt Lindsay DO PCP - General 05/02/17 11/22/20 documented as of this encounter
--- OUTSIDE RECORDS SUMMARY | 2024-11-22 11:05 | XMS_ITS | Encounter Summary ---
Author Organization [facility] Address [address] [place] [address] Phone Care Team Providers Care Senior Sales Consultant Name Role Phone Kirt Lindsay DO Primary Care Provider +1- [phone] Encounter Details Date Type Department Care Team (Late st Contact Info) Description 06/02/2019 Orders Only [facility] Oncology [address] [place] [address] Eneida Gibson MD [address] [place] [address] Vitamin D deficiency (Primary Dx) Social History Tobacco Use Types Packs/Day Years Used Date Smoking Tobacco: Every Day Smokeless Tobacco: Never Comments:Pt not interested i n smoking cessation program Sex and Gender Information Value Date Recorded Sex Assigned at Not on file 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 Gender Identity Not on file Sexual Orientation Not on file documented as of this encounter Ordered Prescriptions Prescription Sig Dispense Quantity Refills Last Filled Start Date End Date ergocalciferol (VITAMIN D) 50,000 unit capsuleIndications :Vitamin D deficiency Take 1 capsule (50,000 Units total) by mouth once a week 4 capsule 11 06/02/2019 0 documented in this encounter Plan of Treatment Not on file documented as of this encounter Visit Diagnoses Diagnosis Vitamin D deficiency- Primary documented in this encounter 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 Care Teams Senior Sales Consultant Relationship Specialty Start Date End Date Kirt Lindsay DO PCP - General 05/02/17 11/22/20 documented as of this encounter
--- OUTSIDE RECORDS SUMMARY | 2024-11-22 11:05 | XMS_ITS | Encounter Summary ---
Author Organization [facility] Address [address] [place] [address] Phone Care Team Providers Care Soft Boarder Name Role Phone Kirt Lindsay DO Primary Care Provider +1- [phone] Encounter Details Date Type Department Care Team (Late st Contact Info) Description 08/06/2019 Orders Only [facility] Oncology [address] [facility] 7th [place] [address] [place] [address] Eneida Gibson MD [address] [place] [address] Osteopenia, unspecified location (Primary Dx) Social History Tobacco Use Types Packs/Day Years Used Date Smoking Tobacco: Every Day Smokeless Tobacco: Never Comments:Pt not interested i n smoking cessation program Sex and Gender Information Value Date Recorded Sex Assigned at Not on file 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
--- OUTSIDE RECORDS SUMMARY | 2024-11-22 11:05 | XMS_ITS | Encounter Summary ---
Author Organization [facility] Address [address] [place] [address] Phone Care Team Providers Care Exploitation Analyst Name Role Phone Kirt Lindsay DO Primary Care Provider +1- [phone] Encounter Details Date Type Department Care Team (Late st Contact Info) Description 07/31/2019 Orders Only [facility] Oncology [address] [facility] 7th [place] [address] [place] [address] Eneida Gibosn MD [address] [place] [address] Type 2 diabetes mellitus with hyperosmolarity without coma, with long-term current use of insulin ([facility]) (Primary Dx) Social History Tobacco Use Types Packs/Day Years Used Date Smoking Tobacco: Every Day Smokeless Tobacco: Never Comments:Pt not interested i n smoking cessation program Sex and Gender Information Value Date Recorded Sex Assigned at Not on file 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
--- OUTSIDE RECORDS SUMMARY | 2024-11-22 11:05 | XMS_ITS | Encounter Summary ---
Author Organization [facility] Address [address] [place] [address] Phone Care Team Providers Care Supervisor Of Guidance And Testing Name Role Phone Kirt Lindsay DO Primary Care Provider +1- [phone] Encounter Details Date Type Department Care Team (Late st Contact Info) Description 07/01/2019 Orders Only [facility] Oncology [address] [facility] 7th [place] [address] [place] [address] Eneida Gibson MD [address] [place] [address] Type 2 diabetes mellitus with hyperosmolarity without coma, with long-term current use of insulin (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 Gender Identity Not on file Sexual Orientation Not on file documented as of this encounter Ordered Prescriptions Prescription Sig Dispense Quantity Refills Last Filled Start Date End Date blood glucose diagnostic stripIndications:Typ e 2 diabetes mellitus with hyperosmolarity without coma, with long-term current use of insulin (HCC) Check blood sugar tid 100 each 4 07/01/2019 01/15/20 20 insulin NPH (HumuLIN N, NovoLIN N) 100 unit/mL (3 mL) insulin penIndications:Type 2 diabetes mellitus with hyperosmolarity without coma, with long-term current use of insulin (HCC) Inject 15 Units under the skin daily with breakfast Take with prednisone 4 pen 3 07/01/2019 08/25/20 19 documented in this encounter Plan of Treatment Not on file documented as of this encounter Visit Diagnoses Diagnosis Type 2 diabetes mellitus with hyperosmolarity without coma, with long-term current use of insulin (HCC)- Primary documented in this encounter Discontinued Medications Medication Sig Discontinue Reason Start Date End Da te insulin NPH (HumuLIN N, NovoLIN N) 100 unit/mL (3 mL) insulin penIndications:Type 2 diabetes mellitus with hyperosmolarity without coma, with long-term current use of insulin (HCC) Inject 15 Units under the skin daily with breakfast Take with prednisone Reorder 06/02/2019 07/01/2019 blood glucose diagnostic stripIndications:Type 2 diabetes mellitus with hyperosmolarity without coma, with long-term current use of insulin (HCC) Check blood sugar tid Reorder 05/29/2019 07/01/2019 documented as of this encounter 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 Care Teams Supervisor Of Guidance And Testing Relationship Specialty Start Date End Date Kirt Lindsay DO PCP - General 05/02/17 11/22/20 documented as of this encounter
--- OUTSIDE RECORDS SUMMARY | 2024-11-22 11:05 | XMS_ITS | Encounter Summary ---
Author Organization [facility] Address [address] [place] [address] Phone Care Team Providers Care Electronic Equipment Maint Tech Name Role Phone Kirt Lindsay DO Primary Care Provider +1- [phone] Reason for Visit * Reason Onset Date Comments Post hosp follow up 08/19/2019 Encounter Details Date Type Department Care Team (Late st Contact Info) Description 08/19/2019 Telephone [facility] Bone Marrow Transplant [address] [facility] 7th Floor, [place] [address] Melody Bolanos V. 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 - 08/19/2019 4:42 PM CDT Pt calling to schedule a post hospital follow up visit. [phone] documented in this encounter Plan of Treatment Not on file documented as of this encounter Visit Diagnoses Not on filedocumented in this encounter 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 Care Teams Electronic Equipment Maint Tech Relationship Specialty Start Date End Date Kirt Lindsay DO PCP - General 05/02/17 11/22/20 documented as of this encounter
--- OUTSIDE RECORDS SUMMARY | 2024-11-22 11:05 | XMS_ITS | Encounter Summary ---
Author Organization [facility] Address [address] [place] [address] Phone Care Team Providers Care Audio/Visual Manager Name Role Phone Kirt Lindsay DO Primary Care Provider +1- [phone] Reason for Visit * Reason Onset Date Comments Following up/Transfer status 08/17/2019 Encounter Details Date Type Department Care Team (Late st Contact Info) Description 08/17/2019 Telephone [facility] Bone Marrow Transplant [address] [facility] 7th [address], [place] [address] Melody Bolanos V. 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 * Telephone Encounter - Melody Bolanos V. - 08/17/2019 2:24 PM CDT Needing to check the status about being transferred from [facility] to [place]- stated he wastalking with Kelly Goodman Requesting a call back today [phone] documented in this encounter Plan of Treatment Not on file documented as of this encounter Visit Diagnoses Not on filedocumented in this encounter 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 Care Teams Audio/Visual Manager Relationship Specialty Start Date End Date Kirt Lindsay DO PCP - General 05/02/17 11/22/20 documented as of this encounter
--- OUTSIDE RECORDS SUMMARY | 2024-11-22 11:05 | XMS_ITS | Encounter Summary ---
Author Organization [facility] Address [address] [place] [address] Phone Care Team Providers Care Telegraph Editor Name Role Phone Kirt Lindsay DO Primary Care Provider +1- [phone] Encounter Details Date Type Department Care Team (Late st Contact Info) Description 08/22/2019 Telephone [facility] Oncology [address] [place] [address] Haritha Wheeler NP [address] [place] [address] Social History Tobacco Use Types Packs/Day Years Used Date Smoking Tobacco: Every Day Smokeless Tobacco: Never Comments:Pt not interested i n smoking cessation program Sex and Gender Information Value Date Recorded Sex Assigned at Not on file 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 He states that he was admitted locally for 9 days for dyspnea. He states that since speaking with Dr. Del Valle's office after discharge they wanted him to be admitted to [place] for further workup of his symptoms worsened at home. He denies any infectious symptoms including fever, chills, body aches, dysuria or new sites of pain. Discuss patient with on-call fellow, Ramonita Langston, who was agreeable for that the patient should potentially be admitted but wished that he be [facility] in [facility] prior to admission. Spoke with [facility] and schedule for the patient to be seen at 10:00 a.m. With the nurse practitioner, who will facilitate admission after initial workup. I called Brady to let him know of the plan of care who was agreeable. Primary oncologist team updated via [employer]. Haritha Wheeler, MSN, OCN, ANP Nurse Practitioner, Medical Oncology Compressor Station Engineer Chief completed by using [employer] Direct speaking software, therefore, transcriptionvariances may occur. documented in this encounter Plan of Treatment Not on file documented as of this encounter Visit Diagnoses Not on filedocumented in this encounter 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 Care Teams Telegraph Editor Relationship Specialty Start Date End Date Kirt Lindsay DO PCP - General 05/02/17 11/22/20 documented as of this encounter
--- OUTSIDE RECORDS SUMMARY | 2024-11-22 11:05 | XMS_ITS | Encounter Summary ---
Author Organization [facility] Address [address] [place] [address] Phone Care Team Providers Care Turbine Blade Assembler Name Role Phone Kirt Lindsay DO Primary Care Provider +1- [phone] Encounter Details Date Type Department Care Team (Late st Contact Info) Description 06/02/2019 Documentation [facility] Oncology [address] [place] [address] Penny Valero, RN Social History Tobacco Use Types Packs/Day Years Used Date Smoking Tobacco: Every Day Smokeless Tobacco: Never Comments:Pt not interested i n smoking cessation program Sex and Gender Information Value Date Recorded Sex Assigned at Not on file 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 Jones this am to get his blood sugar readings from over the weekend. He stated that he has not been able to check his blood sugar because he is having trouble getting his insurance company to cover the test strips. I told him that I would call [facility] pharmacy to check on it. Also Dr. Gibson wanted me to tell him that Narcisa Kilgore has been trying to reach him, and wants himto decrease his Prednisone dose to 20 mg daily instead of 40 mg. Mr. Jones was supposed to see Narcisa on Saturday05/29/19 and stated that he couldn't wait any longer than he did because he had other obligations that day. He was asked to call Narcisa, he stated that he would do that today. documented in this encounter Plan of Treatment Not on file documented as of this encounter Visit Diagnoses Not on filedocumented in this encounter 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 Care Teams Turbine Blade Assembler Relationship Specialty Start Date End Date Kirt Lindsay DO PCP - General 05/02/17 11/22/20 documented as of this encounter
--- OUTSIDE RECORDS SUMMARY | 2024-11-22 11:05 | XMS_ITS | Encounter Summary ---
Author Organization [facility] Address [address] [place] [address] Phone Care Team Providers Care Drapery Maker Name Role Phone Kirt Lindsay DO Primary Care Provider +1- [phone] Encounter Details Date Type Department Care Team (Late st Contact Info) Description 07/01/2019 Documentation 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 Jones called the office to report to Dr. Gibson that he has stopped taking Metformin due to side effects. He stated that the Metformin caused him to have difficulty breathing and severe diarrhea. This information was given to Dr. Gibson and she stated that he should try taking metformin 500 mg bid instead of 1000 mg bid, and see if symptoms persisted. He stated that he has not been taking it for a while and feels better off it. I asked about the amount of NPH he takes and he stated that he takes 15 units daily with prednisone. I asked him to call in a few days with blood sugar readingsto see how his sugars were running. He stated hat he would call back on Tuesday 07/03. documented in this encounter Plan of Treatment Not on file documented as of this encounter Visit Diagnoses Not on filedocumented in this encounter 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 Care Teams Drapery Maker Relationship Specialty Start Date End Date Kirt Lindsay DO PCP - General 05/02/17 11/22/20 documented as of this encounter
--- OUTSIDE RECORDS SUMMARY | 2024-11-22 11:05 | XMS_ITS | Encounter Summary ---
Author Organization [facility] Address [address] [place] [address] Phone Care Team Providers Care Manufacturing Engineer Automotive Name Role Phone Kirt Lindsay DO Primary Care Provider +1- [phone] Encounter Details Date Type Department Care Team (Late st Contact Info) Description 05/29/2019 Orders Only 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 Gender Identity Not on file Sexual Orientation Not on file documented as of this encounter Ordered Prescriptions Prescription Sig Dispense Quantity Refills Last Filled Start Date End Date blood glucose diagnostic stripIndications:Type 2 diabetes mellitus with hyperosmolarity without coma, with long-term current use of insulin (HCC) Check blood sugar tid 100 each 2 05/29/2019 9 blood-glucose meter miscIndications:Type 2 diabetes mellitus with hyperosmolarity without coma, with long-term current use of insulin (HCC) 1 Device 3 (three) times a day 1 each 05/29/2019 4 documented in this encounter Plan of Treatment [...] documented as of this encounter Care Teams Manufacturing Engineer Automotive Relationship Specialty Start Date End Date Kirt Lindsay DO PCP - General 05/02/17 11/22/20 documented as of this encounter
--- OUTSIDE RECORDS SUMMARY | 2024-11-22 11:06 | XMS_ITS | Encounter Summary ---
Author Organization [facility] Address [address] [place] [address] Phone Care Team Providers Care Construction Carpenter Name Role Phone Kirt Lindsay DO Primary Care Provider +1- [phone] Encounter Details Date Type Department Care Team (Late st Contact Info) Description 01/27/2019 Orders Only [facility] Oncology [address] 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 Gender Identity Not on file Sexual [...] (two) times a day 120 tablet 3 01/27/2019 9 documented in this encounter Plan of Treatment Not on file documented as of this encounter Visit Diagnoses Diagnosis Type 2 diabetes mellitus with hyperosmolarity without coma, with long-term current use of insulin (HCC)- Primary AML (acute myeloid leukemia) in remission (HCC) documented in this encounter Discontinued Medications Medication Sig Discontinue Reason Start Date End Da te metFORMIN XR (GLUCOPHAGE XR) 500 mg 24 hr tabletIndications:AML (acute myeloid leukemia) in remission (HCC) Take 2 tablets (1,000 mg total) by mouth 2 (two) times a day. Reorder 11/24/2018 01/27/2019 documented as of this encounter 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 Care Teams Construction Carpenter Relationship Specialty Start Date End Date Kirt Lindsay DO PCP - General 05/02/17 11/22/20 documented as of this encounter
--- OUTSIDE RECORDS SUMMARY | 2024-11-22 11:06 | XMS_ITS | Encounter Summary ---
Author Organization [facility] Address [address] [place] [address] Phone Care Team Providers Care Display Maker Name Role Phone Kirt Lindsay DO Primary Care Provider +1- [phone] Encounter Details Date Type Department Care Team (Late st Contact Info) Description 05/29/2019 10:45 AM CDT Lab [facility] Oncology [address] [facility] 7th [place] [address] [place] [address] Osteopenia, unspecified location; Type 2 diabetes mellitus with hyperglycemia, with long-term current use of insulin ([facility]) Social History Tobacco Use Types Packs/Day Years Used Date Smoking Tobacco: Every Day Smokeless Tobacco: Never Comments:Pt not interested i n smoking cessation program Sex and Gender Information Value Date Recorded Sex Assigned at Not on file 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 Gender Identity Not on file Sexual Orientation Not on file documented as of this encounter Plan of Treatment Not on file documented as of this encounter Procedures Procedure Name Priority Date/Time Associated Diagnosis Comments VITAMIN D 25 HYDROXY Routine 05/29/2019 11:18 AM CDT Osteopenia, unspecified location Type 2 diabetes mellitus with hyperglycemia, with long-term current use of insulin ([facility]) TSH Routine 05/29/2019 11:18 AM CDT Osteopenia, unspecified location Type 2 diabetes mellitus with hyperglycemia, with long-term current use of insulin ([facility]) HEMOGLOBIN A1C Routine 05/29/2019 11:18 AM CDT Osteopenia, unspecified location Type 2 diabetes mellitus with hyperglycemia, with long-term current use of insulin ([facility]) LIPID PANEL Routine 05/29/2019 11:18 AM CDT Osteopenia, unspecified location Type 2 diabetes mellitus with hyperglycemia, with long-term current use of insulin ([facility]) COMPREHENSIVE METABOLIC PANEL STAT 05/29/2019 11:18 AM CDT Osteopenia, unspecified location Type 2 diabetes mellitus with hyperglycemia, with long-term current use of insulin ([facility]) documented in this encounter Results * (ABNORMAL) Comprehensive metabolic panel (05/29/2019 11:18 AM CDT) Pathologist [facility] Sodium 134(L) 135 - 145 mmol/L [facility] Potassium, pl 4.9 3.3 - 4.9 mmol/L [facility] Comment:Hemolyzed; (+++); po tassium value may be falsely elevated by as much as 0.6 - 1.0 mmol/L. Suggest redraw and reanalysis. Chloride 94(L) 97 - 110 mmol/L [facility] CO2 28 22 - 32 mmol/L [facility] Anion gap 12 2 - 15 mmol/L [facility] BUN 19 8 - 25 mg/dL [facility] Creatinine 0.79(L) 0.80 - 1.30 mg/dL [facility] Glucose 331(H) 70 - 199 mg/dL [facility] Comment: Interpretive Data Fasting glucose [...] interpretive data was last revised 2017. Calcium 9.5 8.5 - 10.3 mg/dL [facility] Bilirubin, total 0.4 0.1 - 1.2 mg/dL [facility] Protein, pl 6.7 6.5 - 8.5 g/dL [facility] Albumin 3.8 3.5 - 5.0 g/dL [facility] Alk phos 104 40 - 130 Units/L [facility] ALT 35 7 - 55 Units/L [facility] AST 32 10 - 50 Units/L [facility] Comment:Hemolyzed; result ma y be falsely elevated. Blood specimen (specimen) 05/29/2019 11:18 AM CDT 05/29/2019 11:45 AM CDT Eneida Gibson MD LAB BLOOD ORDERABLES Final Resul t Performing Organization Address City/[facility]/ZIP Co de Phone Number [facility] Department [place] [employer] [place] [address] * (ABNORMAL) Vitamin D 25 hydroxy (05/29/2019 11:18 AM CDT) Vitamin D 25-OH 14(L) 30 - 80 ng/mL [facility] Blood specimen (specimen) 05/29/2019 11:18 AM CDT 05/29/2019 11:45 AM CDT Eneida Gibson MD LAB BLOOD ORDERABLES Final Resul t [facility] [place] [employer] [place] [address] * (ABNORMAL) Hemoglobin A1c (05/29/2019 11:18 AM CDT) Hgb A1C 14.7(H) 4.0 - 5.6 % [facility] Estimated Average Glucose 375 mg/dL [facility] Comment: The ADA recommends reporting an estimated Average Glucose (eAG) with all Hemoglobin A1c results using the equation derived from a study of 507 normal and diabetic adults. ??Minority populations were underrepresented and children were not included. ?? (Diabetes Care 31:0598-4816, 2008). ??The eAG is not equivalent to a fasting glucose. Blood specimen (specimen) 05/29/2019 11:18 AM CDT 05/29/2019 11:45 AM CDT Eneida Gibson MD LAB BLOOD ORDERABLES Final Resul t Performing Organization Address [facility] de Phone Number [facility] [employer] [place] [employer] [place] [address] * TSH (05/29/2019 11:18 AM CDT) Thyroid Stimulating Hormone 1.02 0.30 - 4.20 mcIUnit/mL [facility] Blood specimen (specimen) 05/29/2019 11:18 AM CDT 05/29/2019 11:45 AM CDT Result [facility] Eneida Gibson MD LAB BLOOD ORDERABLES Final Resul t Performing Organization Address [facility] de Phone Number [facility] [place] [employer] [place] [address] * (ABNORMAL) Lipid panel (05/29/2019 11:18 AM CDT) Cholesterol 193 30 - 199 mg/dL [facility] Comment: Interpretive Data [...] Data was last revised on 2018. Triglycerides 266(H) <=149 mg/dL [facility] Comment: Interpretive Data Ages < or = [...] Data was last revised on 2018. HDL 74 >=40 mg/dL [facility] Comment: Interpretive Data Ages < or = [...] was last revised on 2018. LDL, calculated 66 <=129 mg/dL [facility] Comment: Interpretive Data Ages < or = [...] was last revised on 2018. Non-HDL Cholesterol 119 mg/dL [facility] Comment: Interpretive Data [...] last revised on 2018. Chol/HDL ratio 3 [facility] Blood specimen (specimen) 05/29/2019 11:18 AM CDT 05/29/2019 11:45 AM CDT us Eneida Gibson MD LAB BLOOD ORDERABLES Final Resul t [facility] [place] [address] documented in this encounter Visit Diagnoses Diagnosis Osteopenia, unspecified location Type 2 diabetes mellitus with hyperglycemia, with long-term current use of insulin (HCC) documented in this encounter 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 Care Teams Display Maker Relationship Specialty Start Date End Date Kirt Lindsay DO PCP - General 05/02/17 11/22/20 documented as of this encounter
--- OUTSIDE RECORDS SUMMARY | 2024-11-22 11:06 | XMS_ITS | Encounter Summary ---
Author Organization [facility] Address [address] [place] [address] Phone Care Team Providers Care Procurement Director Name Role Phone Kirt Lindsay DO Primary Care Provider +1- [phone] Encounter Details Date Type Department Care Team (Late st Contact Info) Description 02/25/2019 Orders Only [facility] Oncology [address] [place] [address] Eneida Gibson MD [address] [place] [address] Type 2 diabetes mellitus with hyperosmolarity without coma, with long-term current use of insulin ([facility]/HCC) (Primary Dx) Social History Tobacco Use Types Packs/Day Years Used Date Smoking Tobacco: Every Day Smokeless Tobacco: Never Comments:Pt not interested i n smoking cessation program Sex and Gender Information Value Date Recorded Sex Assigned at Not on file 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
--- OUTSIDE RECORDS SUMMARY | 2024-11-22 11:06 | XMS_ITS | Encounter Summary ---
Author Organization [facility] Address [address] [place] [address] Phone Care Team Providers Care Prehemmer Name Role Phone Kirt Lindsay DO Primary Care Provider +1- [phone] Encounter Details Date Type Department Care Team (Latest Contact Info) Description 03/31/2019 Orders Only [facility] Scanning, Provider Social History Tobacco Use Types Packs/Day Years Used Date Smoking Tobacco: Every Day Smokeless Tobacco: Never Comments:Pt not interested i n smoking cessation program Sex and Gender Information Value Date Recorded Sex Assigned at Not on file 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 Gender Identity Not on file Sexual Orientation Not on file documented as of this encounter Plan of Treatment Not on file documented as of this encounter Procedures Procedure Name Priority Date/Time Associated Diagnosis Comments SCAN - LABS 03/30/2019 documented in this encounter Results * SCAN - LABS (03/30/2019) us Provider Scanning Edited Result - Final documented in this encounter Visit Diagnoses Not on filedocumented in this encounter 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 Care Teams Prehemmer Relationship Specialty Start Date End Date Kirt Lindsay DO PCP - General 05/02/17 11/22/20 documented as of this encounter
--- OUTSIDE RECORDS SUMMARY | 2024-11-22 11:06 | XMS_ITS | Encounter Summary ---
Author Organization [facility] Address [address] [place] [address] Phone Care Team Providers Care Talent Development Analyst Name Role Phone Kirt Lindsay DO Primary Care Provider +1- [phone] Encounter Details Date Type Department Care Team (Late st Contact Info) Description 01/05/2019 Orders Only [facility] Oncology [address] [facility] [address] 7th [place] [address] [place] [address] Eneida Gibson MD [address] [place] [address] Vitamin D deficiency (Primary Dx); Osteopenia, unspecified location Social History Tobacco Use Types Packs/Day Years Used Date Smoking Tobacco: Every Day Smokeless Tobacco: Never Comments:Pt not interested i n smoking cessation program Sex and Gender Information Value Date Recorded Sex Assigned at Not on file 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 4 capsule 3 01/05/2019 9 documented in this encounter Plan of Treatment Not on file documented as of this encounter Visit Diagnoses Diagnosis Vitamin D deficiency- Primary Osteopenia, unspecified location documented in this encounter Discontinued Medications Medication Sig Discontinue Reason Start Date End Da te ergocalciferol (VITAMIN D) 50,000 unit capsuleIndications:Osteo penia, unspecified location Take 1 capsule (50,000 Units total) by mouth once a week. Reorder 08/01/2018 01/05/2019 documented as of this encounter 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 Care Teams Talent Development Analyst Relationship Specialty Start Date End Date Kirt Lindsay DO PCP - General 05/02/17 11/22/20 documented as of this encounter
--- OUTSIDE RECORDS SUMMARY | 2024-11-22 11:06 | XMS_ITS | Encounter Summary ---
Author Organization [facility] Address [address] [place] [address] Phone Care Team Providers Care Top Icer Name Role Phone Kirt Lindsay DO Primary Care Provider +1- [phone] Josué Del Valle MD PhD Unavailable [phone] Halie Khan MD Primary Care Provider +1- [phone] Kirt Lindsay DO Primary Care Provider +- [phone] Tay Charlton MD Unavailable [phone] Halie Khan MD Unavailable [phone] StarksAnt goldman MD Unavailable +- [phone] Dillon Calreed Dorado DO Unavailable [phone] Halie Khan MD Unavailable [phone] Wilfred Kinsey MD Unavailable Encounter Details Date Type Department Care Team (Latest Contact Info) Description 02/20/2019 Orders Only [facility] Scanning, Provider Social History Tobacco Use Types Packs/Day Years Used Date Smoking Tobacco: Every Day Smokeless Tobacco: Never Comments:Pt not interested i n smoking cessation program Sex and Gender Information Value Date Recorded Sex Assigned at Not on file 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 Lissy Johnson RN +AFB stain 06/17/2024 06/17/2024 06/18/2024 10:45 AM CDT C. 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 07/23/2024 07/24/2024 07/24/2024 4:49 AM CDT documented as of this encounter Care Teams Top Icer Relationship Specialty Start Date End Date Kirt Lindsay DO PCP - General 05/02/17 11/22/20 Halie Khan MD [address] [address] PCP - General Critical Care Med 11/23/20 02/01/21 Kirt Lindsay DO PCP - General Internal Medicine 02/02/21 Josué Del Valle MD PhD Medical Oncologist/Logistics Associate Medical Oncology 08/26/19 Tay Charlton MD [address] [address] Consulting Physician Gastroenterology 12/03/21 06/11/23 Halie Khan MD [address] [address] Consulting Physician Pulmonary Disease 12/12/21 3 Ant Starks MD [address] [address] Consulting Physician Transplant Hepatology 01/12/22 Cal Carranza DO [address] [address] Director Digital Sales Internal Medicine 06/12/23 Halie Khan MD [address] [facility] [address] [place] [address] Geological Scout Critical Care Med 06/12/23 Wilfred Kinsey MD [address] [facility] [address] [place] [address] Consulting Physician Gastroenterology 03/02/24 documented as of this encounter
--- OUTSIDE RECORDS SUMMARY | 2024-11-22 11:06 | XMS_ITS | Encounter Summary ---
Author Organization [facility] Address [address] [place] [address] Phone Care Team Providers Care Rn Or Lpn Name Role Phone Kirt Lindsay DO Primary Care Provider [phone]- [phone] Encounter Details Date Type Department Care Team (Latest Contact Info) Description 02/11/2019 Orders Only [facility] Oncology [address] 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[facility]) Social History Tobacco Use Types Packs/Day Years Used Date Smoking Tobacco: Every Day Smokeless Tobacco: Never Comments:Pt not interested i n smoking cessation program Sex and Gender Information Value Date Recorded Sex Assigned at Not on file 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 Gender Identity Not on file Sexual Orientation Not on file documented as of this encounter Ordered Prescriptions Prescription Sig Dispense Quantity Refills Last Filled Start Date End Date atorvastatin (LIPITOR) 40 mg tabletIndications:AML (acute myeloid leukemia) in remission (HCC),Type 2 diabetes mellitus with hyperglycemia, with long-term current use of insulin (HCC),Jeebc-nbnhdi-nmou disease (HCC),H/O allogeneic bone marrow transplant (HCC),Pure hypercholesterolemia Take 1 tablet (40 mg total) by mouth daily 30 tablet 6 9 01/15/20 20 documented in this encounter Plan of Treatment Not on file documented as of this encounter Visit Diagnoses Diagnosis Pure hypercholesterolemia- Primary AML (acute myeloid leukemia) in remission (HCC) Type 2 diabetes mellitus with hyperglycemia, with long-term current use of insulin (HCC) Arhxk-pdsuau-uzoo disease (HCC) H/O allogeneic bone marrow transplant (HCC) documented in this encounter Discontinued Medications Medication Sig Discontinue Reason Start Date End Da te atorvastatin (LIPITOR) 40 mg tabletIndications:AML (acute myeloid leukemia) in remission (HCC),Type 2 diabetes mellitus with hyperglycemia, with long-term current use of insulin (HCC),Juaao-rfztcc-ykjl disease (HCC),H/O allogeneic bone marrow transplant (HCC) Take 1 tablet (40 mg total) by mouth daily. Reorder 07/28/2018 02/11/2019 documented as of this encounter 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 Care Teams Rn Or Lpn Relationship Specialty Start Date End Date Kirt Lindsay DO PCP - General 05/02/17 11/22/20 documented as of this encounter
--- OUTSIDE RECORDS SUMMARY | 2024-11-22 11:06 | XMS_ITS | Encounter Summary ---
Author Organization [facility] Address [address] [place] [address] Phone Care Team Providers Care Automotive Product Engineer Name Role Phone Kirt Lindsay DO Primary Care Provider [phone]- [phone] Encounter Details Date Type Department Care Team (Late st Contact Info) Description 02/24/2019 Orders Only [facility] Bone Marrow Transplant [address] [facility] Advanced Medicine 7th [place], [place] [address] Narcisa Kilgore NP [address] DIV IM BONE MARROW TRANSPLANT[address] [place] [address] 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); Cfdjr-utcwmy-xonz disease (CMS/HCC) Social History Tobacco Use Types Packs/Day Years Used Date Smoking Tobacco: Every Day Smokeless Tobacco: Never Comments:Pt not interested i n smoking cessation program Sex and Gender Information Value Date Recorded Sex Assigned at Not on file 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 Gender Identity Not on file Sexual Orientation Not on file documented as of this encounter Plan of Treatment Not on file documented as of this encounter Visit Diagnoses Diagnosis AML (acute myeloid leukemia) in remission (HCC)- Primary Pabuk-zrzihn-eusw disease (HCC) documented in this encounter 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 Care Teams Automotive Product Engineer Relationship Specialty Start Date End Date Kirt Lindsay DO PCP - General 05/02/17 11/22/20 documented as of this encounter
--- OUTSIDE RECORDS SUMMARY | 2024-11-22 11:06 | XMS_ITS | Encounter Summary ---
Author Organization [facility] Address [address] [place] [address] Phone Care Team Providers Care Quilt Stuffer Name Role Phone Kirt Lindsay DO Primary Care Provider +1- [phone] Encounter Details Date Type Department Care Team (Late st Contact Info) Description 02/26/2019 Orders Only [facility] Oncology [address] [facility] Advanced Medicine 7th [place] [address] [place] [address] Eneida Gibson MD [address] [place] [address] 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); Type 2 diabetes mellitus with hyperosmolarity without coma, with long-term current use of insulin (CMS/HCC); Scxtt-cvgmqw-ufcq disease (CMS/HCC); H/O allogeneic bone marrow transplant (CMS/HCC); Type 2 diabetes mellitus with hyperglycemia, with long-term current use of insulin (CMS/HCC) Social History Tobacco Use Types Packs/Day Years Used Date Smoking Tobacco: Every Day Smokeless Tobacco: Never Comments:Pt not interested i n smoking cessation program Sex and Gender Information Value Date Recorded Sex Assigned at Not on file Legal Sex Male 10:48 AM COMPLIANCE SPEC Gender Identity Not on file Sexual Orientation Not on file documented as of this encounter Ordered Prescriptions Prescription Sig Dispense Quantity Refills Last Filled Start Date End Date HUMALOG KWIKPEN INSULIN 100 unit/mL insulin penIndications:typ e 2 diabetes mellitus Inject 3-5 Units under the skin 3 (three) times a day before meals 2 pen 6 02/26/2019 08/07/2019 documented in this encounter Plan of Treatment Not on file documented as of this encounter Visit Diagnoses Diagnosis AML (acute myeloid leukemia) in remission (HCC)- Primary Type 2 diabetes mellitus with hyperosmolarity without coma, with long-term current use of insulin (HCC) 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
--- OUTSIDE RECORDS SUMMARY | 2024-11-22 11:06 | XMS_ITS | Encounter Summary ---
Author Organization [facility] Address [address] [place] [address] Phone Care Team Providers Care Manager Van Name Role Phone Kirt Lindsay DO Primary Care Provider +1- [phone] Encounter Details Date Type Department Care Team (Late st Contact Info) Description 03/05/2019 Orders Only [facility] Oncology [address] [facility] Advanced Medicine 7th [place] [address] [place] [address] Eneida Gibson MD [address] [place] [address] Type 2 diabetes mellitus with hyperosmolarity without coma, with long-term current use of insulin (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 2 pen 3 03/05/2019 9 documented in this encounter Plan of [...] as of this encounter Care Teams Manager Van Relationship Specialty Start Date End Date Kirt Lindsay DO PCP - General 05/02/17 11/22/20 documented as of this encounter
--- OUTSIDE RECORDS SUMMARY | 2024-11-22 11:06 | XMS_ITS | Encounter Summary ---
Author Organization [facility] Address [address] [place] [address] Phone Care Team Providers Care Bus Driver Name Role Phone Kirt Lindsay DO Primary Care Provider [phone] Reason for Referral * Diagnostic Imaging (Routine) - Closed Specialty Diagnoses / Procedures Referred By Ana M t Referred To Contact Diagnoses Type 2 diabetes mellitus with hyperosmolarity without coma, with long-term current use of insulin (HCC) Osteopenia, unspecified location Procedures Dexa Axial Skeleton Bone Density 1 or 2 Site Eneida Gibson MD Phone: tel: [facility] Referral ID Status Reason Start Date Expiration Date Visits Re quested Visits Authorized [id number] Closed 05/29/2019 12/07/2020 1 1 Encounter Details Date Type Department Care Team (Latest Contact Info) Description 05/29/2019 11:20 AM CDT Office Visit [facility] Oncology [address] [facility] 7th [place] [address] [place] [address] Eneida Gibson MD [address] [place] [address] Type 2 diabetes mellitus with hyperosmolarity without coma, with long-term current use of insulin ([facility]) (Primary Dx); Osteopenia, unspecified location; Vitamin D deficiency; Pure hypercholesterolemia Social History Tobacco Use Types Packs/Day Years Used Date Smoking Tobacco: Every Day Smokeless Tobacco: Never Comments:Pt not interested i n smoking cessation program Sex and Gender Information Value Date Recorded Sex Assigned at Not on file Legal Sex Male 10:48 AM COMMUNITY LIFE DIRECTOR Gender Identity Not on file Sexual Orientation Not on file documented as of this encounter Last Filed Vital Signs Vital Sign Reading Time Taken Comments Blood Pressure 99/62 05/29/2019 11:31 AM CDT Pulse 91 05/29/2019 11:31 AM CDT Temperature 37.2 ??C (99 ??F) 05/29/2019 11:31 AM CDT Respiratory Rate 18 05/29/2019 11:31 AM CDT Oxygen Saturation 93% 05/29/2019 11:31 AM CDT Inhaled Oxygen Concentration - - Weight 67.9 kg (149 lb 9.6 oz) 05/29/2019 11:31 AM CDT Height - - Body Mass Index 21.18 11/22/2018 4:50 PM COMMUNITY LIFE DIRECTOR documented in this encounter Progress Notes * Eneida Gibson MD - 05/29/2019 11:20 AM CDT Subjective Patient is a 53 y.o. 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 In November he was admitted to the hospital for sinusitis. At that time he was discharged on metformin 1000 mg BID and Novolog SS. He hasn't filled his insulin because it was too expensive. He hasn't been testing BS either.He missed multiple follow up appointments. He is compliant with metformin, takes about 4146-3679 mg daily. He hasn't followed up with the BMT team either. States that he takes 40 mg of prednisone daily and had been on this dose for months. He has been taking OTC vitamin D, unsure of the dose. Drinks milk and eats cheeses. Denies falls or fractures. No back pain. He walks for exercise. He doesn't work. Has neuropathy and takes gabapentin at night occasionally. He doesn't have retinopathy, has cataracts from prednisone use. No nephropathy. Takes atorvastatin 40 mg daily. Still smokes on and off. DIAGNOSES: 1. 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 T2DM 4. Hyperlipidemia-on atorvastatin [...] daily, Disp: 30 tablet, Rfl: 6 ??? glucagon (glucagon) 1 mg kit, USE DIRECTED AT SCHOOL AND HOME, Disp: , Rfl: ??? metFORMIN XR (GLUCOPHAGE XR) 500 mg [...] DAILY, Disp: 180 tablet, Rfl: 3 ??? ofloxacin [...] ONCE DAILY, Disp: 120 tablet, Rfl:3 ??? sildenafil, antihypertensive, (REVATIO) 20 mg tablet, [...] every other day., Disp: , Rfl: ??? VENTOLIN HFA 90 mcg/actuation inhaler, INHALE 1 TO 2 PUFFS BY MOUTH EVERY 4 HOURS NEEDED FORSHORTNESS OF BREATH, Disp: 1 Inhaler, Rfl: 3 ??? XARELTO 20 mg tablet, TAKE 1 TABLET BY MOUTH ONCE DAILY WITH FOOD, Disp: 30 tablet, Rfl: 2 ??? HUMALOG KWIKPEN INSULIN 100 unit/mL insulin pen, Inject 3-5 Units under the skin 3 (three) times a day before meals (Patient not taking: Reported on 05/29/2019), Disp: 2 pen, Rfl: 6 Review of Systems: Review of Systems All other systems reviewed and are negative. As per HPI. Objective Vitals: Most Recent : Vitals BP 99/62 (BP Location: Right arm) Pulse 91 Temp 37.2 ??C (99 ??F) (Oral) Resp 18 Wt 67.9 kg (149 lb 9.6 oz) SpO2 93% BMI 21.18 kg/m?? Physical Exam: Physical Exam Constitutional: He [...] There is no tenderness. Musculoskeletal: He exhibits no edema or deformity. Monofilament exam: normal sensation in L foot, absent sensation in 2nd and 3 rd toes of the right foot. No ulcers Poor hygene Feet: Right Foot: Skin Integrity: Positive for dry skin. Left Foot: Skin Integrity: Positive for dry skin. Neurological: He is oriented to person, place, and time. Skin: Skin is warm. No rash noted. No erythema. Psychiatric: He has a normal mood and affect. Lab/Radiology/Diagnostic Review: Laboratory review: reviewed the laboratory result(s) below Ref. Range 05/29/2019 11:18 Sodium Latest Ref Range: 135 - 145 mmol/L 134 (L) Potassium, pl Latest Ref Range: 3.3 - 4.9 mmol/L 4.9 Chloride Latest Ref Range: 97 - 110 mmol/L 94 (L) CO2 Latest Ref Range: 22 - 32 mmol/L 28 Anion Gap Latest Ref Range: 2 - 15 mmol/L 12 BUN Latest Ref Range: 8 - 25 mg/dL 19 Creatinine Latest Ref Range: 0.80 - 1.30 mg/dL 0.79 (L) Glucose Latest Ref Range: 70 - 199 mg/dL 331 (H) Calcium Latest Ref Range: 8.5 - 10.3 mg/dL 9.5 Bilirubin, total Latest Ref Range: 0.1 - 1.2 mg/dL 0.4 Protein, pl Latest Ref Range: 6.5 - 8.5 g/dL 6.7 Albumin Latest Ref Range: 3.5 - 5.0 g/dL 3.8 Alk phos Latest Ref Range: 40 - 130 Units/L 104 ALT Latest Ref Range: 7 - 55 Units/L 35 AST Latest Ref Range: 10 - 50 Units/L 32 Cholesterol Latest Ref Range: 30 - 199 mg/dL 193 Triglycerides Latest Ref Range: <=149 mg/dL 266 (H) HDL Cholesterol Latest Ref Range: >=40 mg/dL 74 LDL Cholesterol Calc Latest Ref Range: <=129 mg/dL 66 Non-HDL Cholesterol Latest Units: mg/dL 119 Chol/HDL ratio Unknown 3 TSH Latest Ref Range: 0.30 - 4.20 mcIUnit/mL 1.02 Vitamin D, 25-hydroxy Latest Ref Range: 30 - 80 ng/mL 14 (L) Hgb A1C Latest Ref Range: 4.0 - 5.6 % 14.7 (H) Estim. Avg Glu (eAG) Latest Units: mg/dL 375 DEXA 07/2018 BONE MINERAL DENSITY OF THE [...] up; ARNIE GIBSON MD; Clinic Appointment Location: [facility] ActualMeds Lab Draw Appt Request Arm Draw or Central Line Draw? Arm; What is your ordering location? [facility]c/Hem/BMT; Where will this patient receive treatment? [facility] Dexa Axial Skeleton Bone Density 1 or 2 Site Hemoglobin A1c Comprehensive metabolic panel Vitamin D 25 hydroxy PTH, intact Beta-CrossLaps (Beta-CTx) Infusion Appointment Request What is your ordering location? [facility]/Hem/BMT; Where will this patient receive treatment? [facility] Unprioritized Osteopenia -involving the hip -unfortunately he was restarted on prednisone early this year and remains on high doses -I asked his to restart calcium 600 mg daily -discussed the importance of smoking cessation and exercise -will repeat DEXA scan at next visit Relevant Orders Clinic Appointment Request Follow up; ARNIE GIBSON MD; Clinic Appointment Location: [facility] Lab Draw Appt Request Arm Draw or Central Line Draw? Arm; What is your ordering location? [facility] Onc/Hem/BMT; Where will this patient receive treatment? [facility] Dexa Axial Skeleton Bone Density 1 or 2 Site Hemoglobin A1c Comprehensive metabolic panel Vitamin D 25 hydroxy PTH, intact Beta-CrossLaps (Beta-CTx) Infusion Appointment Request What is your ordering location? [facility] Onc/Hem/BMT; Where will this patient receive treatment? [facility] Pure hypercholesterolemia -LDL at goal -will continue atorvastatin 40 mg daily Vitamin D deficiency -vitamin D levels very low -will order weekly ergocalciferol and ask him to start vitamin D3 2000 IU daily RTC in 2 months documented in this encounter Miscellaneous Notes * Assessment & Plan Note - Eneida Gibson MD - 06/01/2019 4:14 PM CDTAssociated Problem(s): Pure hypercholesterolemia -LDL at goal -will continue atorvastatin 40 mg daily * Assessment & Plan Note - Eneida Gibson MD - 06/01/2019 4:11 PM CDTAssociated Problem(s): Osteopenia -involving the hip -unfortunately he was restarted on prednisone early this year and remains on high doses -I asked his to restart calcium 600 mg daily -discussed the importance of smoking cessation and exercise -will repeat DEXA scan at next visit * Assessment & Plan Note - Eneida Gibson MD - 06/01/2019 4:10 PM CDTAssociated Problem(s): Vitamin D deficiency -vitamin D levels very low -will order weekly ergocalciferol and ask him to start vitamin D3 2000 IU daily * Assessment & Plan Note - Eneida Gibson MD - 06/01/2019 3:59 PM CDTAssociated Problem(s): Type 2 diabetes mellitus [...] Results * (ABNORMAL) Vitamin D 25 hydroxy (08/07/2019 11:11 AM CDT) Vitamin D 25-OH 27(L) 30 - 80 ng/mL [facility] Blood specimen (specimen) 08/07/2019 11:11 AM CDT 08/07/2019 11:11 AM CDT Eneida Gibson MD LAB BLOOD ORDERABLES Final Resul t [facility] [address] [place] [address] * (ABNORMAL) Comprehensive metabolic panel (08/07/2019 11:11 AM CDT) Sodium 140 135 - 145 mmol/L [facility] Potassium, pl 4.3 3.3 - 4.9 mmol/L [facility] Chloride 97 97 - 110 mmol/L [facility] CO2 29 22 - 32 mmol/L [facility] Anion gap 14 2 - 15 mmol/L [facility] BUN 26(H) 8 - 25 mg/dL [facility] Creatinine 0.82 0.80 - 1.30 mg/dL [facility] Glucose 388(H) 70 - 199 mg/dL [facility] Comment: Interpretive Data Fasting glucose >/= [...] 2017. Calcium 9.4 8.5 - 10.3 mg/dL [facility] Bilirubin, total 0.4 0.1 - 1.2 mg/dL [facility] Protein, pl 6.5 6.5 - 8.5 g/dL [facility] Albumin 4.0 3.5 - 5.0 g/dL [facility] Alk phos 121 40 - 130 Units/L [facility] ALT 103(H) 7 - 55 Units/L [facility] [place] AST 51(H) 10 - 50 Units/L [facility] Blood specimen (specimen) 08/07/2019 11:11 AM CDT 08/07/2019 11:11 AM CDT us Eneida Gibson MD LAB BLOOD ORDERABLES Final Resul t [facility] [address] [place] [address] * Beta-CrossLaps (Beta-CTx) (08/07/2019 10:55 AM CDT) Beta-CTx 359 pg/mL [facility] Comment: REFERENCE VALUE [phone] (18-30 y) 93-630 (31-50 y) 35-836 (51-70 y) Not established (>70 y) ADDITIONAL INFORMATION This test has been modified from the dental practitioner's instructions. Its performance characteristics were determined by [facility] in a manner consistent with CLIA requirements. This test has not been cleared or approved by the U.S. Food and Drug Administration. Test Performed by: [facility] [address] [place] [address] Cook Fry: Neftaly Keita M.D. Ph.D.; CLIA# [id number] Blood specimen (specimen) 08/07/2019 10:55 AM CDT 08/07/2019 11:23 AM CDT us Eneida Gibson MD LAB BLOOD ORDERABLES Final Resul t Performing Organization Address [facility] Phone Number [address] [address] * PTH (08/07/2019 10:55 AM CDT) PTH 54 15 - 65 pg/mL [facility] Blood specimen (specimen) 08/07/2019 10:55 AM CDT 08/07/2019 11:08 AM CDT Result [facility] us Eneida Gibson MD LAB BLOOD ORDERABLES Final Resul t Performing Organization Address [facility] Phone Number [address] [address] * (ABNORMAL) Hemoglobin A1c (08/07/2019 10:55 AM CDT) Hgb A1C 14.2(H) 4.0 - 5.6 % [facility] Estimated Average Glucose 361 mg/dL [facility] Comment: The ADA recommends reporting an estimated Average Glucose (eAG) with all Hemoglobin A1c results using the equation derived from a study of 507 normal and diabetic adults. ??Minority populations were underrepresented and children were not included. ?? (Diabetes Care 31:5218-4372, 2008). ??The eAG is not equivalent to a fasting glucose. Blood specimen (specimen) 08/07/2019 10:55 AM CDT 08/07/2019 11:10 AM CDT us Eneida Gibson MD LAB BLOOD ORDERABLES Final Resul t Performing Organization Address [facility] de Phone Number [address] [address] * Dexa Axial Skeleton Bone Density 1 or 2 Site (08/07/2019 10:34 AM CDT) Anatomical Region Laterality Modality Body N/A Radiographic Tiffany ging Narrative 08/10/2019 12:29 AM CDT Patient Name: Brady Jones Date of : 1965 Date of scan: 08/07/2019 Bone mineral density was performed on a [employer] Discovery Densitometer. ?? Machine Cross-calibration and Precision [...] of Internal Medicine 114(11): ??919-923 (1990) 2) Barajas, Lancet 341 : 72-75 (1992) 3) Black, Journal Bone and Mineral Research 7(6): 633-8 (1991) 4) Osbaldo, Journal Bone and Mineral Research 8(10):1227-33 (1992) The history and data sections of the bone mineral density scan were prepared by Kait Helms)(Casi)(IDALIA), CBDT who is accredited by the International Society of Clinical Densitometry. The overall patient assessment and scan interpretation were performed by Jamie Porter MD who is certified by the International Society of Clinical Densitometry. [id number] us Eneida Gibson MD IMG DXA PROCEDURES Final Result documented in this encounter Visit Diagnoses Diagnosis Type 2 diabetes mellitus with hyperosmolarity without coma, with long-term current use of insulin (HCC)- Primary Osteopenia, unspecified location Vitamin D deficiency Pure hypercholesterolemia Type 2 diabetes mellitus with hyperosmolarity without coma, with long-term current use of insulin (HCC) Osteopenia, unspecified location Other specified disorders of bone density and structure, left thigh 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 snf current use of anticoagulant documented in this encounter Discontinued Medications Medication Sig Discontinue Reason Start Date End Da te ergocalciferol (VITAMIN D) 50,000 unit capsuleIndications:Osteope tanya, unspecified location,Vitamin D deficiency Take 1 capsule (50,000 Units total) by mouth once a week. 01/05/2019 05/29/2019 fludrocortisone 0.1 mg tabletIndications:AML (acute myeloid leukemia) in remission (HCC) Take 1 tablet (0.1 mg total) by mouth 2 (two) times a day. 10/07/2018 05/29/2019 insulin aspart U-100 (NovoLOG) 100 unit/mL insulin penIndications:Type 2 diabetes mellitus with hyperosmolarity without coma, with long-term current use of insulin ([facility]) Inject 3-5 Units under the skin 3 (three) times a day before meals INJECT 3 TO 5 UNITS UNDER THE SKIN THREE TIMES/DAY BEFORE MEALS. 03/05/2019 05/29/2019 polyethylene glycol (COLYTE) 240-22.72-6.72 -5.84 gram solution as directed 04/18/2019 05/29/2019 predniSONE (DELTASONE) 20 mg tabletIndications:AML (acute myeloid leukemia) in remission (HCC),Njrus-szhmvw-tldc disease (HCC) Take 1 tablet (20 mg total) by mouth daily. 12/04/2018 05/29/2019 documented as of this encounter Historical Medications * This list may reflect changes made after this encounter. sulfamethoxazole -trimethoprim (BACTRIM DS,SEPTRA DS) 800-160 mg per tablet TAKE 1 TABLET BY MOUTH TWICE DAILY ON Saturday. 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
--- OUTSIDE RECORDS SUMMARY | 2024-11-22 11:07 | XMS_ITS | Encounter Summary ---
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) Procedures CT chest without contrast Narcisa Kilgore NP Phone: tel: fax: [address] [address] Referral ID Status Reason Start Date Expiration Date Visits Re quested Visits Authorized [id number] Closed 10/08/2018 04/18/2020 1 1 WORKER Reason for Visit * MRI/CAT/PET Scan (Routine) - Closed Specialty Diagnoses / Procedures Referred By Contac t Referred To Contact Radiology Diagnoses AML (acute myeloid leukemia) in remission (HCC) 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) Procedures CT chest without contrast Narcisa Kilgore NP Phone: tel: fax: [facility] [address] [facility] [place] [address] Referral ID Status Reason Start Date Expiration Date Visits Re quested Visits Authorized [id number] Closed 10/08/2018 04/18/2020 1 1 Encounter Details Date Type Department Care Team (Late st Contact Info) Description 2018 1:25 PM TRAY WORKER - 2018 11:59 PM TRAY WORKER Hospital Encounter [facility] [address] [place] [address] Narcisa Kilgore NP [address] DIV IM BONE MARROW TRANSPLANT, [address] [place] [address] AML (acute myeloid leukemia) in remission ([facility]); H/O allogeneic bone marrow transplant ([facility]); 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[facility]) Discharge Disposition: Discharge to home or self care Social History Tobacco Use Types Packs/Day Years Used Date Smoking Tobacco: Every Day Smokeless Tobacco: Never Comments:Pt not interested i n smoking cessation program Sex and Gender Information Value Date Recorded Sex Assigned at Not on file Legal Sex Male 10:48 AM TRAY WORKER Gender Identity Not on file Sexual Orientation Not on file documented as of this encounter Medications at Time of Discharge sulfamethoxazole- trimethoprim (BACTRIM,SEPTRA) 800-160 mg per tabletIndications :AML (acute myeloid leukemia) in remission (HCC),H/O allogeneic bone marrow transplant (HCC) Take 1 tablet by mouth 2 (two) times a day. On Saturday/ 16 tablet 6 2018 9 acyclovir (ZOVIRAX) 400 mg tabletIndications :AML (acute myeloid leukemia) in remission (HCC) TAKE ONE TABLET BY MOUTH EVERY 8 HOURS 270 tablet 1 07/28/2018 9 ADVAIR DISKUS 100-50 mcg/dose diskus inhalerIndication s:AML (acute myeloid leukemia) in remission (HCC) INHALE 1 DOSE BY MOUTH TWICE DAILY 60 each 3 09/08/2018 9 atorvastatin (LIPITOR) 40 mg tabletIndications :AML (acute myeloid leukemia) in remission (HCC),Type 2 diabetes mellitus with hyperglycemia, with long-term current use of insulin (HCC),Graft-versu s-host disease (HCC),H/O allogeneic bone marrow transplant (HCC) Take 1 tablet (40 mg total) by mouth daily. 07/28/2018 9 ergocalciferol (VITAMIN D) 50,000 unit capsuleIndication s:Osteopenia, unspecified location Take 1 capsule (50,000 Units total) by mouth once a week. 4 capsule 3 08/01/2018 9 fludrocortisone 0.1 mg tabletIndications :AML (acute myeloid leukemia) in remission (HCC) Take 1 tablet (0.1 mg total) by mouth 2 (two) times a day. 60 tablet 2 10/07/2018 9 gabapentin (NEURONTIN) 100 mg capsuleIndication s:AML (acute myeloid leukemia) in remission (HCC) Take 1 capsule by mouth as needed. 05/31/2017 9 gabapentin (NEURONTIN) 300 mg capsule Take 300 mg by mouth as needed. 9 glucagon (glucagon) 1 mg kitIndications:AM L (acute myeloid leukemia) in remission (HCC) USE DIRECTED AT SCHOOL AND HOME 12/14/2013 0 HUMALOG KWIKPEN INSULIN 100 unit/mL insulin penIndications:AM L (acute myeloid leukemia) in remission (HCC),Graft-versu s-host disease (HCC),H/O allogeneic bone marrow transplant (HCC),Type 2 diabetes mellitus with hyperglycemia, with long-term current use of insulin (HCC) 07/17/2018 9 metFORMIN XR (GLUCOPHAGE XR) 500 mg 24 hr tabletIndications :AML (acute myeloid leukemia) in remission (HCC) Take 1 tablet by mouth 2 (two) times a day. 12/21/2016 9 mycophenolate mofetil (CELLCEPT) 500 mg tabletIndications :AML (acute myeloid leukemia) in remission (HCC),Graft-versu s-host disease (HCC) Take 2 tablets (1,000 mg total) by mouth 2 (two) times a day. 2018 9 nicotine (NICODERM CQ) 7 mgIndications:AML (acute myeloid leukemia) in remission (HCC) Place on the skin. 12/18/2017 9 ofloxacin (OCUFLOX) 0.3 % ophthalmic solution Administer 1 drop into both eyes 4 (four) times a day. 5 mL 11 10/13/2018 9 predniSONE (DELTASONE) 10 mg tabletIndications :AML (acute myeloid leukemia) in remission (HCC),Graft-versu s-host disease (HCC) Take 2 tablets (20 mg total) by mouth daily. 120 tablet 3 2018 9 tacrolimus (PROGRAF) 0.5 mg capsuleIndication s:AML (acute myeloid leukemia) in remission (HCC),Graft-versu s-host disease (HCC) Take 1 capsule (0.5 mg total) by mouth daily. 60 capsule 6 06/24/2018 9 VENTOLIN HFA 90 mcg/actuation inhalerIndication s:AML (acute myeloid leukemia) in remission (HCC) INHALE 1 TO 2 PUFFS BY MOUTH EVERY 4 HOURS NEEDED FOR SHORTNESS OF BREATH 1 Inhaler 2 09/29/2018 9 XARELTO 20 mg tabletIndications :AML (acute myeloid leukemia) in remission (HCC) Take 1 tablet (20 mg total) by mouth daily. 30 tablet 2 07/17/2018 8 documented as of this encounter Discharge Disposition Disposition Code Departure Means Destination Discharge to home or self care documented in this encounter Plan of Treatment Not on file documented as of this encounter Procedures Procedure Name Priority Date/Time Associated Diagnosis Comments CT CHEST WO CONTRAST Schedule Routine, Read Routine (OP Routine) 2018 1:54 PM TRAY WORKER 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) H/O allogeneic bone marrow transplant (CMS/HCC) Hxfci-txgnkf-bbbd disease (CMS/HCC) documented in this encounter Results * CT chest without contrast (2018 1:54 PM TRAY WORKER) Anatomical Region Laterality Modality Body N/A Computed Tomogra phy 2018 2:20 PM TRAY WORKER Impressions 2018 2:20 PM TRAY WORKER 1. ??Resolution of right lower lobe consolidation. 2. ??Moderate to severe upper lobe predominant centrilobular emphysema with right upper lobe scarring. Electronically signed by: Dallas Valiente M.D. Narrative 2018 2:20 PM TRAY WORKER EXAMINATION: CT of the chest without contrast. TECHNIQUE: Computed tomographic images of the chest were obtained without intravenous contrast according to standard protocol. HISTORY:AML in remission status post bone marrow transplant with ftuia-tlckpa-jhxx disease. Comparison:CT dated 12/27/2017. ?? FINDINGS:There is unchanged scarring in the right lung apex. ??There is severe centrilobular emphysema. ??Scarring is seen within the right middle lobe and appears unchanged. ??Debris seen within the trachea. No pleural effusion or pneumonic consolidation. ??The previously seen right lower lobe consolidation and pleural effusion have resolved. Calcified lesions are seen within the coronary arteries, aorta, and great vessels. ??The heart size is normal. ??No mediastinal, axillary, or supraclavicular lymphadenopathy. ??The esophagus appears normal. There is cholelithiasis without evidence of cholecystitis. ??Upper abdomen is otherwise unremarkable. No suspicious osseous lesion. Procedure Note Dallas Valiente MD - 2018 EXAMINATION: CT of the chest without contrast. TECHNIQUE: Computed tomographic images of the chest were obtained without intravenous contrast according to standard protocol. HISTORY:AML in remission status post bone marrow transplant with dzzqx-djrshc-sksk disease. Comparison:CT dated 12/27/2017. FINDINGS:There is unchanged scarring in the right lung apex. There is severe centrilobular emphysema. Scarring is seen within the right middle lobe and appears unchanged. Debris seen within the trachea. No pleural effusion or pneumonic consolidation. The previously seen right lower lobe consolidation and pleural effusion have resolved. Calcified lesions are seen within the coronary arteries, aorta, and great vessels. The heart size is normal. No mediastinal, axillary, or supraclavicular lymphadenopathy. The esophagus appears normal. There is cholelithiasis without evidence of cholecystitis. Upper abdomen is otherwise unremarkable. No suspicious osseous lesion. IMPRESSION: 1. Resolution of right lower lobe consolidation. 2. Moderate to severe upper lobe predominant centrilobular emphysema with right upper lobe scarring. Electronically signed by: Dallas Valiente M.D. Narcisa Kilgore NP IMG CT PROCEDURES Final R esult documented in this encounter Visit Diagnoses Diagnosis AML (acute myeloid leukemia) in remission (HCC) H/O allogeneic bone marrow transplant (HCC) Oeike-lwfuyk-cmni disease (HCC) documented in this encounter 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 Care Teams Program Aide Group Work Relationship Specialty Start Date End Date Kirt Lindsay DO PCP - General 05/02/17 11/22/20 documented as of this encounter
--- OUTSIDE RECORDS SUMMARY | 2024-11-22 11:07 | XMS_ITS | Encounter Summary ---
Author Organization [facility] Address [address] [place] [address] Phone Care Team Providers Care Warpman Name Role Phone Kirt Lindsay DO Primary Care Provider [phone]- [phone] Encounter Details Date Type Department Care Team (Late st Contact Info) Description 2018 11:15 AM DIVIDING 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 Infusion [facility] Oncology [address] [facility] 7th [place] [id number] Type 2 diabetes mellitus with hyperglycemia, with long-term current use of insulin ([facility]) Social History Tobacco Use Types Packs/Day Years Used Date Smoking Tobacco: Every Day Smokeless Tobacco: Never Comments:Pt not interested i n smoking cessation program Sex and Gender Information Value Date Recorded Sex Assigned at Not on file Legal Sex Male 10:48 AM DIVIDING 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 Gender Identity Not on file Sexual Orientation Not on file documented as of this encounter Nursing Notes * Elizabeth Gonzales - 2018 11:15 AM CST Patient tolerated treatment well. He left ambulatory to Pulmonary. DING 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 documented in this encounter Plan of Treatment Not on file documented as of this encounter Visit Diagnoses Diagnosis Type 2 diabetes mellitus with hyperglycemia, with long-term current use of insulin (HCC) documented in this encounter Administered Medications Inactive Administered Medications - up to 3 most recent administrations Medication Order MAR Action Action Date Dose Rate Site insulin lispro (HumaLOG) injection 10 Units 10 Units, subcutaneous, Once, On 10/27/18 at 1200, For 1 doseIndications:Type 2 diabetes mellitus with hyperglycemia, with long-term current use of insulin (HCC) Given 2018 11:41 AM DIVIDING 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 10 Units Left Lower Abdomen documented in this encounter Orders Medications Ordered That Girma ht Not Have Been Administered Count Last Ordered Date First Ordered Date insulin lispro (HumaLOG) inj ection 10 Units 1 2018 documented in this encounter 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 Care Teams Warpman Relationship Specialty Start Date End Date Kirt Lindsay DO PCP - General 05/02/17 11/22/20 documented as of this encounter
--- OUTSIDE RECORDS SUMMARY | 2024-11-22 11:07 | XMS_ITS | Encounter Summary ---
Author Organization [facility] Address [address] [place] [address] Phone Care Team Providers Care It Specialist Name Role Phone Kirt Lindsay DO Primary Care Provider [phone]- [phone] Encounter Details Date Type Department Care Team (Late st Contact Info) Description 2018 9:30 AM ROULETTE DEALER Lab [facility] Oncology [address] [facility] Advanced Medicine 7th [place] [address] [place] [address] Eneida Gibson MD [address] [place] [address] 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); H/O allogeneic bone marrow transplant (CMS/HCC); Kcnxw-hhwhnm-hosb disease (CMS/HCC) Discharge Disposition: Discharge to home or self care Social History Tobacco Use Types Packs/Day Years Used Date Smoking Tobacco: Every Day Smokeless Tobacco: Never Comments:Pt not interested i n smoking cessation program Sex and Gender Information Value Date Recorded Sex Assigned at Not on file Legal Sex Male 10:48 AM ROULETTE DEALER Gender Identity Not on file Sexual Orientation Not on file documented as of this encounter Discharge Disposition Disposition Code Departure Means Destination Discharge to home or self care documented in this encounter Plan of Treatment Not on file documented as of this encounter Procedures Procedure Name Priority Date/Time Associated Diagnosis Comments CRITICAL RESULT CALLBACK CHEMISTRY Routine 2018 9:30 AM ROULETTE DEALER 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) H/O allogeneic bone marrow transplant (CMS/HCC) Fjjxc-msytye-qmgh disease (CMS/HCC) TACROLIMUS LEVEL, RANDOM Routine 2018 9:30 AM ROULETTE DEALER 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) H/O allogeneic bone marrow transplant (CMS/HCC) Qfvaa-yfewds-hwqr disease (CMS/HCC) VITAMIN D 25 HYDROXY Routine 2018 9:30 AM ROULETTE DEALER 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) URIC ACID Routine 2018 9:30 AM ROULETTE DEALER 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) H/O allogeneic bone marrow transplant (CMS/HCC) Asahh-xjqvsu-vklm disease (CMS/HCC) TSH Routine 2018 9:30 AM ROULETTE DEALER 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) MAGNESIUM Routine 2018 9:30 AM ROULETTE DEALER 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) H/O allogeneic bone marrow transplant (CMS/HCC) Xvtne-raxfrl-ultm disease (CMS/HCC) LACTATE DEHYDROGENASE Routine 2018 9:30 AM ROULETTE DEALER 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) H/O allogeneic bone marrow transplant (CMS/HCC) Psjdr-anuxcp-hbow disease (CMS/HCC) IGG Routine 2018 9:30 AM ROULETTE DEALER 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) COMPREHENSIVE METABOLIC PANEL Routine 2018 9:30 AM ROULETTE DEALER 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) H/O allogeneic bone marrow transplant (CMS/HCC) Znbwx-jegort-wazz disease (CMS/HCC) DIFFERENTIAL AUTO Routine 2018 9:2 8 AM ROULETTE DEALER 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) H/O allogeneic bone marrow transplant (CMS/HCC) Rxbby-imqqqa-ntze disease (CMS/HCC) CBC WITH AUTO DIFFERENTIAL Routine 2018 9:28 AM ROULETTE DEALER 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) H/O allogeneic bone marrow transplant (CMS/HCC) Ihffa-gkgumx-izzf disease (CMS/HCC) documented in this encounter Results * Critical Result Callback Chemistry (2018 9:30 AM ROULETTE DEALER) Date Notified [id number] [facility] Time Notified 1103 [facility] TestName Paula [facility] Called/Read Back Ros[facility] Singleton [facility] Credentials ANA PAULA [facility] Called By ra [facility] Blood specimen (specimen) 2018 9:30 AM ROULETTE DEALER 2018 9:53 AM ROULETTE DEALER Narrative [facility] - 2018 11:05 AM ROULETTE DEALER Narcisa Kilgore SUPERVISOR INTELLIGENCE ANALYST LAB BLOOD ORDERABLES Pilar l Result Performing Organization Address [facility] Co de Phone Number [facility] Department [place] [address] * (ABNORMAL) IgG (2018 9:30 AM ROULETTE DEALER) Pathologist [facility] Immunoglobulin G 579.0(L) 700.0 - 1,600.0 mg/dL [facility] Blood specimen (specimen) 2018 9:30 AM ROULETTE DEALER 2018 9:49 AM ROULETTE DEALER Narrative [facility] - 2018 10:21 AM ROULETTE DEALER Narcisa Kilgore SUPERVISOR INTELLIGENCE ANALYST LAB BLOOD ORDERABLES Pilar l Result [facility] [place] [address] * (ABNORMAL) Vitamin D 25 hydroxy (2018 9:30 AM ROULETTE DEALER) Pathologist [facility] Vitamin D 25-OH 22(L) 30 - 80 ng/mL [facility] Blood specimen (specimen) 2018 9:30 AM ROULETTE DEALER 2018 9:49 AM ROULETTE DEALER Narrative [facility] - 2018 10:59 AM ROULETTE DEALER Narcisa Kilgore SUPERVISOR INTELLIGENCE ANALYST LAB BLOOD ORDERABLES Pilar l Result Performing Organization Address [facility]/ZIP Co de Phone Number [facility] [place] [address] * (ABNORMAL) TSH (2018 9:30 AM ROULETTE DEALER) Pathologist [facility] Thyroid Stimulating Hormone 0.22(L) 0.30 - 4.20 mcIUnit/mL [facility] Blood specimen (specimen) 2018 9:30 AM ROULETTE DEALER 2018 9:49 AM ROULETTE DEALER Narrative [facility] - 2018 10:30 AM ROULETTE DEALER us Narcisa Kilgore SUPERVISOR INTELLIGENCE ANALYST LAB BLOOD ORDERABLES Pilar l Result [facility] Department [place] [address] * Uric acid (2018 9:30 AM ROULETTE DEALER) Pathologist [facility] Uric acid 3.1 3.0 - 8.0 mg/dL [facility] Blood specimen (specimen) 2018 9:30 AM ROULETTE DEALER 2018 9:49 AM ROULETTE DEALER Narrative [facility] - 2018 10:30 AM ROULETTE DEALER Narcisa Kilgore SUPERVISOR INTELLIGENCE ANALYST LAB BLOOD ORDERABLES Pilar l Result [facility] [place] [address] * Tacrolimus level, random (2018 9:30 AM ROULETTE DEALER) Tacrolimus, random <1.0 ng/mL [facility] Comment: Undetectable. ??Please verify that the correct immunosuppressant test was requested. Interpretive Data Testing performed by liquid chromatography-tandem mass spectrometry (LC- MS/MS).This test was developed using an analyte specific reagent. Its performance characteristics were determined by the [facility] in a manner consistent with CLIA requirements. ??This test has not been cleared or approved by the U.S. Food and Drug Administration. Current interpretive data was last revised on 2016. Blood specimen (specimen) 2018 9:30 AM ROULETTE DEALER 2018 9:41 AM ROULETTE DEALER Narrative [facility] - 2018 2:58 PM ROULETTE DEALER Narcisa Kilgore SUPERVISOR INTELLIGENCE ANALYST LAB BLOOD ORDERABLES Pilar l Result Performing Organization Address [facility] Co de Phone Number [facility] [place] [address] * Magnesium (2018 9:30 AM ROULETTE DEALER) Magnesium 1.6 1.4 - 2.5 mg/dL [facility] Blood specimen (specimen) 2018 9:30 AM ROULETTE DEALER 2018 9:49 AM ROULETTE DEALER Narrative [facility] - 2018 10:30 AM ROULETTE DEALER Narcisa Kilgore SUPERVISOR INTELLIGENCE ANALYST LAB BLOOD ORDERABLES Pilar l Result Performing Organization Address City/[facility]/ZIP Co de Phone Number [facility] [place] [address] * (ABNORMAL) Lactate dehydrogenase (LD) (2018 9:30 AM ROULETTE DEALER) Pathologist [facility] Lactate dehydrogenase (LDH) 325(H) 100 - 250 Units/L [facility] Blood specimen (specimen) 2018 9:30 AM ROULETTE DEALER 2018 9:49 AM ROULETTE DEALER Narrative [facility] - 2018 10:30 AM ROULETTE DEALER Narcisa Kilgore NP LAB BLOOD ORDERABLES Pilar l Result [facility] Department [place] [address] * (ABNORMAL) Comprehensive metabolic panel (2018 9:30 AM ROULETTE DEALER) Pathologist [facility] Sodium 138 135 - 145 mmol/L [facility] Potassium, pl 3.8 3.3 - 4.9 mmol/L [facility] Chloride 97 97 - 110 mmol/L [facility] CO2 35(H) 22 - 32 mmol/L [facility] Anion gap 6 2 - 15 mmol/L [facility] BUN 19 8 - 25 mg/dL [facility] Creatinine 0.87 0.80 - 1.30 mg/dL [facility] Glucose 565(C) 70 - 199 mg/dL [facility] Comment: Interpretive Data Fasting glucose [...] 2017. Calcium 9.1 8.5 - 10.3 mg/dL [facility] Bilirubin, total 0.5 0.1 - 1.2 mg/dL [facility] Protein, pl 6.3(L) 6.5 - 8.5 g/dL [facility] Albumin 4.0 3.5 - 5.0 g/dL [facility] Alk phos 101 40 - 130 Units/L [facility] ALT 48 7 - 55 Units/L [facility] AST 31 10 - 50 Units/L [facility] Blood specimen (specimen) 2018 9:30 AM ROULETTE DEALER 2018 9:49 AM ROULETTE DEALER Narrative [facility] - 2018 10:51 AM ROULETTE DEALER us Narcisa Kilgore NP LAB BLOOD ORDERABLES Pilar armas Result [facility] Department [place] [address] * (ABNORMAL) Differential, auto (2018 9:28 AM ROULETTE DEALER) Neutrophil abs 10.8(H) 1.8 - 6.6 K/cumm [facility] Comment:Testing performed by : [facility], [address] [place] [phone] Lymphocyte abs 2.2 1.2 - 3.3 K/cumm [facility] Comment:Testing performed by : [facility], [address] [place] [phone] Monocyte abs 0.7 0.2 - 1.2 K/cumm [facility] Comment:Testing performed by : [facility], [address] [place] [phone] Eosinophil abs 0.0 0.0 - 0.5 K/cumm [facility] Comment:Testing performed by : [facility], [address] [place] [phone] Basophil abs 0.1 0.0 - 0.2 K/cumm [facility] Comment:Testing performed by : [facility], [address] [place] [phone] Neutrophil pct 78.0 % [facility] Comment: Interpretive Data Percent cell count reference ranges are not reported, since discordance with absolute values may lead to misinterpretation of CBC data. Current Interpretive Data was last revised on 2018. Testing performed by: [facility], [address] [place] [phone] Lymphocyte pct 16.1 % [facility] Comment: Interpretive Data Percent cell count reference ranges are not reported, since discordance with absolute values may lead to misinterpretation of CBC data. Current Interpretive Data was last revised on 2018. Testing performed by: [facility], [address] [place] [phone] Monocyte pct 4.7 % [facility] Comment:Testing performed by : [facility], [address] [place] [phone] Eosinophil pct 0.3 % [facility] Comment:Testing performed by : [facility], [address] [place] [phone] Basophil pct 0.9 % [facility] Comment:Testing performed by : [address] [phone] Blood specimen (specimen) 2018 9:28 AM ROULETTE DEALER 2018 9:32 AM ROULETTE DEALER Narrative [facility] - 2018 9:37 AM ROULETTE DEALER Narcisa Kilgore SUPERVISOR INTELLIGENCE ANALYST LAB BLOOD ORDERABLES Pilar l Result [facility] Department [place] [address] * (ABNORMAL) CBC with auto differential (2018 9:28 AM ROULETTE DEALER) WBC 13.9(H) 3.8 - 9.8 K/cumm [facility] Comment:Testing performed by : [facility], [address] [place] [phone] Hgb 15.2 13.8 - 17.2 g/dL [facility] Comment:Testing performed by : [address] [phone] Hct 44.3 40.7 - 50.3 % [facility] Comment:Testing performed by : [facility], [address] [place], [place] [phone] Plt 163 140 - 440 K/cumm [facility] Comment:Testing performed by : [facility], [address] [place], [place] [phone] MPV 8.7 6.8 - 10.4 fL [facility] Comment:Testing performed by : [place] [address] RBC 4.05(L) 4.50 - 5.70 M/cumm [facility] Comment:Testing performed by : [facility], [address] [place], [place] [phone] MCV 109.4(H) 80.0 - 97.6 fL [facility] Comment:Testing performed by : [facility], [address] [place] [address] MCH 37.6(H) 26.7 - 33.7 pg [facility] Comment: Result consistent with previously reported values. Testing performed by: [facility], [address] [place], [place] [phone] MCHC 34.4 32.7 - 35.5 g/dL [facility] Comment:Testing performed by : [place] [address] RDW CV 14.5 11.8 - 14.6 % [facility] Comment:Testing performed by : [place] [address] NRBC abs 0.00 0.00 - 0.01 K/cumm [facility] Comment:Testing performed by : [facility], [address] [place], [place] [phone] Blood specimen (specimen) 2018 9:28 AM ROULETTE DEALER 2018 9:32 AM ROULETTE DEALER Narrative [facility] - 2018 9:37 AM ROULETTE DEALER us Narcisa Kilgore SUPERVISOR INTELLIGENCE ANALYST LAB BLOOD ORDERABLES Pilar pawel Result [facility] Department [place] [address] documented in this encounter Visit Diagnoses Diagnosis AML (acute myeloid leukemia) in remission (HCC) H/O allogeneic bone marrow transplant (HCC) Wpdtq-unwpvg-gnov disease (HCC) documented in this encounter Orders Appointment Requests Count Last Ordered Date Fi rst Ordered Date ONCBCN LAB APPOINTMENT 1 2018 documented in this encounter 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 Care Teams It Specialist Relationship Specialty Start Date End Date Kirt Lindsay DO PCP - General 05/02/17 11/22/20 documented as of this encounter
--- OUTSIDE RECORDS SUMMARY | 2024-11-22 11:07 | XMS_ITS | Encounter Summary ---
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) Procedures Pulmonary Function Test -[facility] Adult PFT Lab- CAM-8D; Spirometry with Bronchodilator, DLCO, Lung Volumes, Airway Resistance; Pleth with Airway Resistance; Lung volumes Narcisa Kilgore NP Phone: tel: fax: [address] [phone] Referral ID Status Reason Start Date Expiration Date Visits Re quested Visits Authorized [id number] Closed 10/08/2018 04/18/2020 1 1 OR SALES MANAGER Reason for Visit * Oncology (Routine) - Closed Specialty Diagnoses / Procedures Referred By Ana M anderson Referred To Contact Diagnoses AML (acute myeloid leukemia) in remission (HCC) H/O allogeneic bone marrow transplant ([facility]) Nrxda-zmwsxe-aiac disease ([facility]) Procedures Pulmonary Function Test -[facility] Adult PFT Lab- CAM-8D; Spirometry with Bronchodilator, DLCO, Lung Volumes, Airway Resistance; Pleth with Airway Resistance; Lung volumes Narcisa Kilgore NP Phone: tel: fax: [address] [phone] Referral ID Status Reason Start Date Expiration Date Visits Re quested Visits Authorized [id number] Closed 10/08/2018 04/18/2020 1 1 Encounter Details Date Type Department Care Team (Latest Contact Info) Description 2018 11:30 AM SENIOR SALES MANAGER - 2018 12:39 PM SENIOR SALES MANAGER Hospital Encounter [facility] Pulmonary [address] [address] AML (acute myeloid leukemia) in remission ([facility]); H/O allogeneic bone marrow transplant ([facility]); Jsrat-aderzd-onok disease ([facility]) Discharge Disposition: Discharge to home or self care Social History Tobacco Use Types Packs/Day Years Used Date Smoking Tobacco: Every Day Smokeless Tobacco: Never Comments:Pt not interested i n smoking cessation program Sex and Gender Information Value Date Recorded Sex Assigned at Not on file Legal Sex Male 10:48 AM SENIOR SALES MANAGER Gender Identity Not on file Sexual Orientation Not on file documented as of this encounter Medications at Time of Discharge sulfamethoxazole- trimethoprim (BACTRIM,SEPTRA) 800-160 mg per tabletIndications :AML (acute myeloid leukemia) in remission (HCC),H/O allogeneic bone marrow transplant ([facility]) Take 1 tablet by mouth 2 (two) [...] Procedure Name Priority Date/Time Associated Diagnosis Comments PULMONARY FUNCTION TEST (PFT) Routine 2018 1:09 PM SENIOR SALES MANAGER AML (acute myeloid leukemia) in remission ([facility]) H/O allogeneic bone marrow transplant ([facility]) Svonb-piplbv-ypxr disease ([facility]) documented in this encounter Results * Pulmonary Function Test -[facility] Adult PFT Lab- CAM-8D; Spirometry with Bronchodilator, DLCO, Lung Volumes, Airway Resistance; Pleth with Airway Resistance; Lung volumes (2018 1:09 PM SENIOR SALES MANAGER) FVC PRED 4.94 0.05 - 9.99 Liters [facility] FVC PRE 3.85 0 - 12 Liters [facility] FVC %PRE PRED 78 0 - 300 % [facility] FVC POST 4.38 0 - 12 Liters [facility] FVC %POST PRED 89 0 - 300 % [facility] FVC %CHNG 14 0 - 300 % [facility] FEV1 PRED 3.88 0.05 - 9.99 Liters [facility] FEV1 PRE 1.17 0 - 12 Liters [facility] FEV1 %PRE PRED 30 0 - 300 % [facility] FEV1 POST 1.32 0 - 12 Liters [facility] FEV1 %POST PRED 34 0 - 300 % [facility] FEV1 %CHNG 13 0 - 300 % [facility] FEV1/FVC PRED 79 1 - 99 % [facility] FEV1/FVC PRE 30 0 - 12 % [facility] FEV1/FVC POST 30 0 - 12 % [facility] EGF59-03% PRED 3.48 0 - 12 L/sec [facility] HEB50-12% PRE 0.29 0 - 12 L/sec [facility] IBW30-24% %PRE PRED 8 0 - 300 % [facility] ZSM24-70% POST 0.33 0 - 12 L/sec [facility] OSY30-66% %POST PRED 10 0 - 300 % [facility] BVY29-55% %CHNG 13 0 - 300 % [facility] FEF75% PRED 1.18 0 - 300 L/sec [facility] FEF75% PRE 0.15 0 - 12 L/sec [facility] FEF75% %PRE PRED 13 % [facility] FEF75% POST 0.15 0 - 12 L/sec [facility] FEF75% %POST PRED 13 0 - 300 % [facility] FEF75% %CHNG -4 0 - 12 % [facility] PEF PRED 8.90 0 - 18 L/sec [facility] PEF PRE 2.20 0 - 18 L/sec [facility] PEF %PRE PRED 25 0 - 300 % [facility] PEF POST 3.84 0 - 18 L/sec [facility] PEF %POST PRED 43 0 - 300 % [facility] PEF %CHNG 74 0 - 300 % [facility] RAX103% %CHNG 9 % [facility] PIF PRE 3.51 0 - 18 L/sec [facility] PIF POST 3.28 0 - 18 L/sec [facility] PIF %CHNG -7 0 - 300 % [facility] FEV6 PRE 2.68 0 - 12 Liters [facility] FEV6 POST 3.04 0 - 12 Liters [facility] FEV6 % CHG 14 0 - 300 % [facility] FEV1/FEV6 PRE 44 0 - 12 % [facility] FEV1/FEV6 POST 43 0 - 12 % [facility] VC PRED 4.69 0.05 - 9.99 Liters [facility] VC PRE 4.00 0.05 - 9.99 Liters [facility] VC %PRE PRED 85 0 - 300 % [facility] TLC PRED 6.98 0.05 - 11.99 Liters [facility] TLC PRE 7.89 0.05 - 11.99 Liters [facility] TLC %PRE PRED 113 0 - 300 % [facility] RV PRED 2.08 0.05 - 9.99 Liters [facility] RV PRE 3.89 0.05 - 9.99 Liters [facility] RV %PRE PRED 187 0 - 300 % [facility] RV/TLC PRED 30 0 - 300 % [facility] RV/TLC PRE 49 0 - 300 % [facility] FRC N2 PRED 3.04 0.05 - 9.99 Liters [facility] FRC PL PRED 3.58 0.05 - 9.99 Liters [facility] FRC PL PRE 5.49 0.05 - 9.99 Liters [facility] FRC PL %PRE PRED 153 0 - 300 % [facility] ERV PRED 1.62 0.05 - 9.99 Liters [facility] ERV PRE 1.68 0.05 - 9.99 Liters [facility] ERV %PRE PRED 103 0 - 300 % [facility] IC PRE 2.40 0.05 - 9.99 Liters [facility] DLCO PRED 36.3 0.05 - 99.99 mL/mmHg/min [facility] DLCO PRE 8.8 mL/mmHg/min [facility] DLCO %PRE PRED 24 0 - 300 % [facility] DL ADJ PRED 36.3 1 - 2 mL/mmHg/min [facility] DL ADJ PRE 8.7 1 - 2 mL/mmHg/min [facility] DL ADJ %PRE PRED 24 0 - 300 % HEALTHCARE DLCO/VA PRED 5.31 mL/mHg/min/ L [facility] DLCO/VA PRE 1.80 mL/mHg/min/ L [facility] DLCO/VA %PRE PRED 34 % [facility] DL/VA ADJ PRED 4.14 mL/mHg/min/ L [facility] DL/VA ADJ %PRE PRED 43 % [facility] VA PRE 4.92 Liters [facility] RAW PRED 1.25 cmH2O/L/sec [facility] RAW PRE 5.65 cmH2O/L/sec [facility] RAW %PRE PRED 451 % [facility] GAW PRED 0.859 L/sec/cmH2O [facility] GAW PRE 0.177 L/sec/cmH2O [facility] GAW %PRE PRED 21 % [facility] SRAW PRED 4.48 cmH2O/L/s/L [facility] SRAW PRE 36.91 cmH2O/L/s/L [facility] SRAW %PRE PRED 823 % [facility] SGAW PRED 0.228 L/s/cmH2O/L [facility] SGAW PRE 0.027 L/s/cmH2O/L [facility] SGAW %PRE PRED 12 % [facility] Anatomical Region Laterality Modality PFT 2018 12:2 6 PM SENIOR SALES MANAGER Narrative 10/30/2018 10:34 AM SENIOR SALES MANAGER See pdf us Narcisa Kilgore WET PROCESS HEAD MILLER PFT ORDERABLES Final Res ult documented in this encounter Visit Diagnoses Diagnosis AML (acute myeloid leukemia) in remission (HCC) H/O allogeneic bone marrow transplant (HCC) Hjrjr-rmsybf-hmht disease (HCC) documented in this encounter 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 Care Teams Record Librarian Relationship Specialty Start Date End Date Kirt Lindsay DO PCP - General 05/02/17 11/22/20 documented as of this encounter
--- OUTSIDE RECORDS SUMMARY | 2024-11-22 11:07 | XMS_ITS | Encounter Summary ---
Author Organization [facility] Address [address] [place] [address] Phone Care Team Providers Care Paint Spray Tender Name Role Phone iKrt Lindsay DO Primary Care Provider +1- [phone] Encounter Details Date Type Department Care Team (Late st Contact Info) Description 12/12/2018 Orders Only [facility] Oncology [address] [facility] Advanced Medicine 7th [place] [address] [place] [address] Eneida Gibson MD [address] [place] [address] Social History Tobacco Use Types Packs/Day Years Used Date Smoking Tobacco: Every Day Smokeless Tobacco: Never Comments:Pt not interested i n smoking cessation program Sex and Gender Information Value Date Recorded Sex Assigned at Not on file Legal Sex Male 10:48 AM PIPE SETTER Gender Identity Not on file Sexual Orientation Not on file documented as of this encounter Plan of Treatment Not on file documented as of this encounter Visit Diagnoses Not on filedocumented in this encounter 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 Care Teams Paint Spray Tender Relationship Specialty Start Date End Date Kirt Lindsay DO PCP - General 05/02/17 11/22/20 documented as of this encounter
--- OUTSIDE RECORDS SUMMARY | 2024-11-22 11:07 | XMS_ITS | Encounter Summary ---
Author Organization [facility] Address [address] [place] [address] Phone Care Team Providers Care Decator Operator Name Role Phone Kirt Lindsay DO Primary Care Provider +1- [phone] Encounter Details Date Type Department Care Team (Late st Contact Info) Description 12/17/2018 Orders Only [facility] Bone Marrow Transplant [address] [facility] Advanced Medicine 7th Floor, [place] [address] Narcisa Kilgore NP [address] DIV IM BONE MARROW TRANSPLANT[address] [place], [place] [id number] 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); Mkqai-yumdlg-njjo disease (CMS/HCC) Social History Tobacco Use Types Packs/Day Years Used Date Smoking Tobacco: Every Day Smokeless Tobacco: Never Comments:Pt not interested i n smoking cessation program Sex and Gender Information Value Date Recorded Sex Assigned at Not on file Legal Sex Male 10:48 AM WASTE SPECIALIST Gender Identity Not on file Sexual Orientation Not on file documented as of this encounter Ordered Prescriptions Prescription Sig Dispense Quantity Refills Last Filled Start Date End Date rah GOFF) 10 mg tabletIndications: 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 30 tablet 11 12/17/2018 12/21/2019 documented in this encounter Plan of Treatment Not on file documented as of this encounter Visit Diagnoses Diagnosis AML (acute myeloid leukemia) in remission (HCC)- Primary Tpelc-wcujhb-kjqu disease (HCC) documented in this encounter 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 Care Teams Decator Operator Relationship Specialty Start Date End Date Kirt Lindsay DO PCP - General 05/02/17 11/22/20 documented as of this encounter
--- OUTSIDE RECORDS SUMMARY | 2024-11-22 11:07 | XMS_ITS | Encounter Summary ---
Author Organization [facility] Address [address] [place] [address] Phone Care Team Providers Care Sap Project Manager Name Role Phone Kirt Lindsay DO Primary Care Provider +1- [phone] Encounter Details Date Type Department Care Team (Late st Contact Info) Description 10/17/2018 Orders Only [facility] Bone Marrow Transplant [address] [facility] Advanced Medicine 7th Floor, [place] [address] Narcisa Kilgore NP [address] DIV IM BONE MARROW TRANSPLANT, [address] [place] [address] Cough (Primary Dx); 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); Afntj-ubmvor-nmct disease (CMS/HCC); H/O allogeneic bone marrow transplant ([facility]/HCC); Type 2 diabetes mellitus with hyperglycemia, with long-term current use of insulin ([facility]/HCC) Social History Tobacco Use Types Packs/Day Years Used Date Smoking Tobacco: Every Day Smokeless Tobacco: Never Sex and Gender Information Value Date Recorded Sex Assigned at Not on file Legal Sex Male 10:48 AM STAFF NURSE ANESTHETIST Gender Identity Not on file Sexual Orientation Not on file documented as of this encounter Ordered Prescriptions Prescription Sig Dispense Quantity Refills Last Filled Start Date End Date azithromycin (ZITHROMAX) 250 mg tabletIndications: Cough Take 1 tablet (250 mg total) by mouth daily for 5 days. Take 2 tablets the first day, then 1 tablet daily for 4 days. 6 tablet 10/17/2018 8 documented in this encounter Plan of Treatment Not on file documented as of this encounter Visit Diagnoses Diagnosis Cough- Primary AML (acute myeloid leukemia) in remission (HCC) Qjohc-ddawmq-gwde disease (HCC) H/O allogeneic bone marrow transplant (HCC) Type 2 diabetes mellitus with hyperglycemia, with long-term current use of insulin (HCC) documented in this encounter 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 Care Teams Sap Project Manager Relationship Specialty Start Date End Date Kirt Lindsay DO PCP - General 05/02/17 11/22/20 documented as of this encounter
--- OUTSIDE RECORDS SUMMARY | 2024-11-22 11:07 | XMS_ITS | Encounter Summary ---
Author Organization [facility] Address [address] [facility] [address] [place] [address] Phone Care Team Providers Care Senior Sales Consultant Name Role Phone Kirt Lindsay DO Primary Care Provider +1- [phone] Reason for Referral * Consultation (Routine) - Closed Specialty Diagnoses / Procedures Referred By Ana M anderson Referred To Contact Diabetes and Nutrition Services Diagnoses Type 2 diabetes mellitus with hyperosmolarity without coma, with long-term current use of insulin (HCC) Eneida Gibson MD Phone: tel: Roby for [address] [address] Referral ID Status Reason Start Date Expiration Date V isits Requested Visits Authorized [id number] Closed Specialty Services Required 11/28/2018 06/08/2020 10 10 Question Answer [id number] Yes DNRFR Individual Self Management (DSME/T) Follow-Up DSME/T DNCNRFR All 10 DSMT content areas as appropriate DNMNTRFR Annual follow-up MNT Injectable Medications Yes Medication Name Medication Name Amount Amount Frequency Frequency Route Route DNSPNRFR Other - none ALL STRIPPER HELPER Encounter Details Date Type Department Care Team (Late st Contact Info) Description 11/28/2018 Orders Only [facility] Oncology [address] [facility] 7th [place] [address] [place] [address] Eneida Gibson MD [address] [place] [address] Type 2 diabetes mellitus with hyperosmolarity without coma, with long-term current use of insulin (CMS/HCC) (Primary Dx) Social History Tobacco Use Types Packs/Day Years Used Date Smoking Tobacco: Every Day Smokeless Tobacco: Never Comments:Pt not interested i n smoking cessation program Sex and Gender Information Value Date Recorded Sex Assigned at Not on file Legal Sex Male 10:48 AM DRYWALL STRIPPER HELPER Gender Identity Not on file Sexual Orientation Not on file documented as of this encounter Plan of Treatment Scheduled Referrals Name Type Priority Associated Diagnoses Orde r Schedule Ambulatory referral to Diabetic Education Outpatient Referral Routine Type 2 diabetes mellitus with hyperosmolarity without coma, with long-term current use of insulin (CMS/HCC) Ordered: 11/28/2018 documented as of this encounter Visit Diagnoses [...]
--- OUTSIDE RECORDS SUMMARY | 2024-11-22 11:07 | XMS_ITS | Encounter Summary ---
Author Organization [facility] Address [address] [place] [address] Phone Care Team Providers Care Pre K Teacher Name Role Phone Kirt Lindsay DO Primary Care Provider +1- [phone] Reason for Visit * Reason Onset Date Comments TCV 12/01/2018 Encounter Details Date Type Department Care Team (Late st Contact Info) Description 12/01/2018 Telephone [facility] Bone Marrow Transplant [address] [facility] 7th Floor, [place] [address] Mellisa Rubalcava RN TCV Social History Tobacco Use Types Packs/Day Years Used Date Smoking Tobacco: Every Day Smokeless Tobacco: Never Comments:Pt not interested i n smoking cessation program Sex and Gender Information Value Date Recorded Sex Assigned at Not on file Legal Sex Male 10:48 AM BOOTH CASHIER Gender Identity Not on file Sexual Orientation Not on file documented as of this encounter Miscellaneous Notes * Telephone Encounter - Mellisa Rubalcava RN - 12/01/2018 10:02 AM BOOTH CASHIER D/C Date: 11-25-18 Discharged from: [facility] Discharge to: home Issues since Discharge: New equipment: New Treatment: New Medications: Received all discharge medications: Issues with discharge planning: Reviewed next appointment: yes Did you schedule as Transitional Care Visit? no call not in window and appt >14 days Is the patient on a research study with a research oral medication? no H CASHIER documented in this encounter Plan of Treatment Not on file documented as of this encounter Visit Diagnoses Not on filedocumented in this encounter 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 Care Teams Pre K Teacher Relationship Specialty Start Date End Date Kirt Lindsay DO PCP - General 05/02/17 11/22/20 documented as of this encounter
--- OUTSIDE RECORDS SUMMARY | 2024-11-22 11:07 | XMS_ITS | Encounter Summary ---
Author Organization [facility] Healthcare Address [address] [place] [address] Care Team Providers Care Fire Assistant Name Role Phone Kirt Lindsay DO Primary Care Provider [phone] Reason for Visit * Reason Comments Acute Myeloid Leukemia eval by MEDICAL SERVICE TECHNICIAN Encounter Details Date Type Department Care Team (Latest Contact Info) Description 11/22/2018 10:31 AM SALES AND MERCHANDISING REPRESENTATIVE - 11/25/2018 7:52 PM [facility] Hospital Encounter [address] [id number] Josué Del Valle MD PhD [address] DIV IM BONE MARROW TRANSPLANT, [address] [place] [address] Dehydration (Primary Dx); Chemotherapy induced nausea and vomiting; Infection; Type 2 diabetes mellitus with hyperosmolarity without coma, with long-term current use of insulin (CMS/HCC); Electrolyte imbalance; 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); Vccut-kaurli-nwgo disease (CMS/HCC); H/O allogeneic bone marrow transplant [...] file Legal Sex Male 10:48 AM SALES AND MERCHANDISING REPRESENTATIVE Gender Identity Not on file Sexual Orientation Not on file documented as of this encounter Last Filed Vital Signs Vital Sign Reading Time Taken Comments Blood Pressure 125/66 11/25/2018 3:51 PM SALES AND MERCHANDISING REPRESENTATIVE Pulse 96 11/25/2018 3:51 PM SALES AND MERCHANDISING REPRESENTATIVE Temperature 37 ??C (98.6 ??F) 11/25/2018 3:51 PM SALES AND MERCHANDISING REPRESENTATIVE Respiratory Rate 17 11/25/2018 3:51 PM SALES AND MERCHANDISING REPRESENTATIVE Oxygen Saturation 90% 11/25/2018 3:51 PM SALES AND MERCHANDISING REPRESENTATIVE Inhaled Oxygen Concentration - - Weight 71.7 kg (158 lb) 11/24/2018 8:20 PM SALES AND MERCHANDISING REPRESENTATIVE Height 179 cm (5' 10.47 ) 11/22/2018 4:50 PM SALES AND MERCHANDISING REPRESENTATIVE Body Mass Index 22.37 11/22/2018 4:50 PM SALES AND MERCHANDISING REPRESENTATIVE documented in this encounter Discharge Summaries * Josefa Nur NP - 11/25/2018 7:52 PM CST Inpatient Discharge Summary BRIEF OVERVIEW Admitting Provider: Josué Del Valle MD PhD Discharge Provider: No att. providers found Primary Care Physician at Discharge: Kirt Lindsay DO [phone] Admission Date: 11/22/2018 Discharge Date: 11/25/2018 Admission Location: [facility] Primary Discharge Diagnosis: Chronic sinusitis Secondary Discharge Diagnosis: Sinusitis AML (acute myeloid leukemia) in remission ([facility]) Depressed mood Ikmxv-epivuz-zrvd disease ([facility]/HCC) H/O allogeneic bone marrow transplant ([facility]) Type 2 diabetes mellitus ([facility]) Pure hypercholesterolemia Vitamin D deficiency COPD, severe ([facility]) DVT (deep venous thrombosis) ([facility]) * No resolved hospital problems. * DETAILS OF HOSPITAL STAY Presenting Problem/History of Present Illness: Mr. 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 ?? Presented today to [facility] for a week of cough with occasional yellow sputum production, also new headaches and frontal sinus pressure. Per report had temp up to 100.0 over the past week, but never actually spiked a fever. He had mild nausea over the past week with no vomiting. He does note that he hasn't been taking his insulin for over a week as he ran out of his prescription. Two days prior to this presentation went to [facility], I do not have records, but he reports being treated with steroids and albuterol which did not markedly improve his symptoms. ?? On arrivals to [facility]: afebrile, HR 118, RR 18/min, BP 100/75mmHg. Labs showing Hgb 17.1, Wbc 13.5, PLT 151, ANC 9.0, chemistry panel notable for glucose of 438 and pseudohyponatremia to 132, normal electrolytes and renal function. He underwent a CT chest that showed no e/o PE, resolved prior effusionand RLL consolidation. Head CT with contrast showed mucosal thickening of the maxillary and sphenoid sinuses with no extrasinus extension. RVP was negative. He received 2L of IVF with resolution of tachycardia. Blood cultures drawn and he received 1xcefepime+vancomycin. His hyperglycemia was treated with 12 units of Lispro. Hospital Course: #Sinusitis-From clinical history, sounds to be chronic complaint over last 2 months. Patient reports mild frontal sinus tenderness, cough, malaise, and subjective fevers over last month or so. He is a poor historian. Head and chest CT on 11/22 showed no evidence of new pneumonia, showed maxillary andsphenoid sinus thickening c/w chronic inflammation. BCx 11/22 and RVP 11/23 were negative. He was treated with cefepime and vancomycin from 11/22-11/24, and transitioned to Levaquin to complete 10d course. He reports symptoms have improved at discharge. Due to fpc immunosuppressants in s/o cGVHD, we asked ENT to see him to evaluate for fungal sinusitis. Bedside scope was performed and showed no e/o fungal involvement to nasal turbinates. They recommended nasal saline irrigations and a f/u in ENT clinic for cerumen disimpaction. #AML-s/p sibling allo SCT on 11/09/09, now in CR with no evidence of recurrence. This has been complicated by cGVHD for which he continues on prednisone, tacrolimus, and MMF. He continues OI ppx withBactrim and acyclovir. #cGVHD-As above with known involvement of eyes, mouth, skin, and lung. He is on pred 10 mg BID, MMF1 g BID, tacrolimus 0.5 mg QOD. A tacrolimus trough on 11/23 was undetectable. #DM2-With uncontrolled T2DM with HgbA1c in 14 range on admission. He was noted to be somewhat noncompliant with his home regimen; he had run out of testing strips and was only using Novolog when he needed to but stated he has not used it in a long time . Glucose levels were in 300s-400s when admitted. He was managed with insulin in house, and was discharged with increased dose of metformin to 1g BID and given instructions on Novolog pen SSI with each meal. medical educator saw pt. Scripts for diabetic supplies and meds were sent to [facility] in [place] for pick up attendant. He will likely need basal insulin but pt was resistant to this, as states he has had lower sugars with Lantus in past. Oliverll f/u with endocrinology on 12/16. #Depressed mood-Per outpatient team, there was concern for depressed mood prior to admission. We consulted [email or web address]man counseling, who found his symptoms consistent with major depressive disorder and setup follow up with local psychiatrist at end of month. He was noted to have euthymic mood with no suicidal ideation at the time of assessment. He has coherent though processes and appropriate judgmentand insight per psychology note. #Severe COPD-Continues to smoke despite education on cessation. He continues steroids, Advair, albuterol inh. #DVT-Cont Xarelto. Active Issues Requiring Follow-up: -Will f/u with ENT and endocrinology on 12/16. Was asked to bring record of glucose monitoring. -Will f/u with local psychiatrist at end of month -Will f/u with [facility] team on 12/12. Test Results Pending at Discharge: Order Current Status Blood culture Blood Preliminary result Blood culture Blood Preliminary result Operative Procedures Performed: Other Procedures: none Pertinent Test Results: none Discharge Details Physical Exam at Discharge: Discharge Condition: good Pulse: 96 Resp: 17 BP: 125/66 Temp: 37 ??C (98.6 ??F) Weight: 71.7 kg (158 lb) Pertinent Exam Findings at Discharge: per progress note Discharge Disposition: Discharge to home or self care Code Status at Discharge: FULL Discharge Instructions: Discharge Medications: Current Medications TAKE these medications acyclovir 400 mg tablet Commonly known as: ZOVIRAX TAKE ONE TABLET BY MOUTH EVERY 8 HOURS ADVAIR DISKUS 100-50 mcg/dose diskus inhaler Generic drug: fluticasone-salmeterol INHALE 1 DOSE BY MOUTH TWICE DAILY atorvastatin 40 mg tablet Commonly known as: LIPITOR Take 1 tablet (40 mg total) by mouth daily. ergocalciferol 50,000 unit capsule Commonly known as: VITAMIN D Take 1 capsule (50,000 Units total) by mouth once a week. fludrocortisone 0.1 mg tablet Take 1 tablet (0.1 mg total) by mouth 2 (two) times a day. glucagon 1 mg kit Generic drug: glucagon USE DIRECTED AT SCHOOL AND HOME HumaLOG KwikPen Insulin 100 unit/mL insulin pen Generic drug: insulin lispro Inject 3-5 Units under the skin 3 (three) times a day before meals. levoFLOXacin 750 mg tablet Commonly known as: LEVAQUIN Take 1 tablet (750 mg total) by mouth bench manager before breakfast for 10 days. metFORMIN XR 500 mg 24 hr tablet Commonly known as: GLUCOPHAGE XR Take 2 tablets (1,000 mg total) by mouth 2 (two) times a day. mycophenolate mofetil 500 mg tablet Commonly known as: CELLCEPT Take 2 tablets (1,000 mg total) by mouth 2 (two) times a day. ofloxacin 0.3 % ophthalmic solution Commonly known as: OCUFLOX Administer 1 drop into both eyes 4 (four) times a day. pen needle, diabetic 31 gauge x 5/16 needle Use to inject 1-4 times daily as directed. predniSONE 10 mg tablet Commonly known as: DELTASONE Take 2 tablets (20 mg total) by mouth daily. sodium chloride-sodium bicarbonate packet with rinse device Commonly known as: NEILMED SINUS RINSE, AYR Administer 240 mL (1 packet total) into each nostril daily as needed (sinus congestion). sulfamethoxazole-trimethoprim 800-160 mg per tablet Commonly known as: BACTRIM,SEPTRA Take 1 tablet by mouth 2 (two) times a day. On Saturday/ tacrolimus 0.5 mg capsule Commonly known as: PROGRAF Take 1 capsule (0.5 mg total) by mouth every other day. VENTOLIN HFA 90 mcg/actuation inhaler Generic drug: albuterol HFA INHALE 1 TO 2 PUFFS BY MOUTH EVERY 4 HOURS NEEDED FOR SHORTNESS OF BREATH XARELTO 20 mg tablet Generic drug: rivaroxaban TAKE 1 TABLET BY MOUTH ONCE DAILY WITH FOOD Outpatient Follow-Up: Future Appointments Date Time Provider Department Center 12/03/2018 10:00 AM Halie Guzman RN EML CAM 13B [facility] E[facility] 12/12/2018 10:00 AM LAB, CAM 7 ONC ONC LAB CAM7 [facility] 12/12/2018 10:40 AM Narcisa Kilgore NP BMT CAM 7 BMT 12/16/2018 8:00 AM Heather Henson AUD CAM 11A [facility] 12/16/2018 9:00 AM Irina Schmidt NP CLN CAM 11A [facility] 12/16/2018 11:00 AM Eneida Gibson MD ONC [facility] 01/30/2019 11:00 AM LAB, CAM 7 ONC ONC LAB CAM7 [facility] 01/30/2019 11:40 AM Eneida Gibson MD ONC [facility] Contact Information for Follow-ups Kirt Lindsay DO Specialty: Internal Medicine Relationship: PCP - General [address] [place] [address] [place] [address] Next Steps: Follow up Cosigned by Josué Del Valle MD PhD at 11/26/2018 6:24 PM SALES AND MERCHANDISING REPRESENTATIVE S AND MERCHANDISING REPRESENTATIVE S AND MERCHANDISING REPRESENTATIVE Associated attestation - Josué Del Valle MD PhD - 11/26/2018 6:24 PM SALES AND MERCHANDISING REPRESENTATIVE I have seen and examined the patient on 11/26/18 in conjunction with the non- physician provider. History:AML and PNA Physical Exam: GEN: no acute distress HEENT: no mucositis, anicteric sclera Pulm: clear to ausculation bilaterally CV: rate and rhythm regular ABD: soft, nondistended, nontender, bowel sounds active Skin: no rashes, lesions Ext: No edema Neuro: alert, oriented x 4 Assessment/Plan: Doing well/ D/C today Josué Del Valle MD PhD documented in this encounter Medications at Time of Discharge levoFLOXacin (LEVAQUIN) 750 mg tabletIndications :Upper Respiratory/HEENT Infection Take 1 tablet (750 mg total) by mouth bench manager before breakfast for 10 days. 10 tablet 11/25/2018 9 pen needle, diabetic 31 gauge x 5/16 needle Use to inject 1-4 times daily as directed. 100 each 11 11/24/2018 0 sulfamethoxazole- trimethoprim (BACTRIM,SEPTRA) 800-160 mg per tabletIndications [...] a day. 60 tablet 2 10/07/2018 9 glucagon (glucagon) 1 mg kitIndications:AM L (acute myeloid leukemia) in remission (HCC) USE DIRECTED AT SCHOOL AND HOME 12/14/2013 0 HUMALOG KWIKPEN INSULIN 100 unit/mL insulin penIndications:ty pe 2 diabetes mellitus Inject 3-5 Units under the skin 3 (three) times a day before meals. 1 pen 11/24/2018 9 metFORMIN XR (GLUCOPHAGE XR) 500 mg 24 hr tabletIndications :AML (acute myeloid leukemia) in remission (HCC) Take 2 tablets (1,000 mg total) by mouth 2 (two) times a day. 120 tablet 11/24/2018 9 mycophenolate mofetil (CELLCEPT) 500 mg tabletIndications :AML (acute myeloid leukemia) in remission (HCC),Graft-versu s-host disease (HCC) Take 2 tablets (1,000 mg total) by mouth 2 (two) times a day. 2018 9 ofloxacin (OCUFLOX) 0.3 % ophthalmic solution Administer 1 drop into both eyes 4 (four) times a day. 5 mL 11 10/13/2018 9 predniSONE (DELTASONE) 10 mg tabletIndications :AML (acute myeloid leukemia) in remission (HCC),Graft-versu s-host disease (HCC) Take 2 tablets (20 mg total) by mouth daily. 120 tablet 3 2018 9 sodium chloride-sodium bicarbonate (NEILMED SINUS RINSE, AYR) packet with rinse device Administer 240 mL (1 packet total) into each nostril daily as needed (sinus congestion). 1 each 11/24/2018 0 tacrolimus (PROGRAF) 0.5 mg capsule Take 1 capsule (0.5 mg total) by mouth every other day. 11/25/2018 1 VENTOLIN HFA 90 mcg/actuation inhalerIndication s:AML (acute myeloid leukemia) in remission (HCC) INHALE 1 TO 2 PUFFS BY MOUTH EVERY 4 HOURS NEEDED FOR SHORTNESS OF BREATH 1 Inhaler 2 09/29/2018 9 XARELTO 20 mg tabletIndications :AML (acute myeloid leukemia) in remission (HCC) TAKE 1 TABLET BY MOUTH ONCE DAILY WITH FOOD 30 tablet 2 11/04/2018 9 documented as of this encounter Ordered Prescriptions Prescription Sig Dispense Quantity Refills Last Filled Start Date End Date levoFLOXacin (LEVAQUIN) 750 mg tabletIndications: Upper Respiratory/HEENT Infection Take 1 tablet (750 mg total) by mouth bench manager before breakfast for 10 days. 10 tablet 11/25/2018 9 pen needle, diabetic 31 gauge x 5/16 needle Use to inject 1-4 times daily as directed. 100 each 11 11/24/2018 0 sodium chloride-sodium bicarbonate (NEILMED SINUS RINSE, AYR) packet with rinse device Administer 240 mL (1 packet total) into each nostril daily as needed (sinus congestion). 1 each 11/24/2018 0 HUMALOG KWIKPEN INSULIN 100 unit/mL insulin penIndications:typ e 2 diabetes mellitus Inject 3-5 Units under the skin 3 (three) times a day before meals. 1 pen 11/24/2018 9 metFORMIN XR (GLUCOPHAGE XR) 500 mg 24 hr tabletIndications: AML (acute myeloid leukemia) in remission (HCC) Take 2 tablets (1,000 mg total) by mouth 2 (two) times a day. 120 tablet 11/24/2018 9 pen needle, diabetic 31 gauge x 5/16 needle Use to inject 1-4 times daily as directed. 100 each 11 11/24/2018 9 levoFLOXacin (LEVAQUIN) 750 mg tabletIndications: Upper Respiratory/HEENT Infection Take 1 tablet (750 mg total) by mouth bench manager before breakfast for 10 days. 10 tablet 11/25/2018 9 sodium chloride-sodium bicarbonate (NEILMED SINUS RINSE, AYR) packet with rinse device Administer 240 mL (1 packet total) into each nostril daily as needed (sinus congestion). 1 each 11/24/2018 9 HUMALOG KWIKPEN INSULIN 100 unit/mL insulin penIndications:typ e 2 diabetes mellitus Inject 2-4 Units under the skin 3 (three) times a day before meals. 1 pen 11/24/2018 9 tacrolimus (PROGRAF) 0.5 mg capsule Take 1 capsule (0.5 mg total) by mouth every other day. 11/25/2018 1 metFORMIN XR (GLUCOPHAGE XR) 500 mg 24 hr tabletIndications: AML (acute myeloid leukemia) in remission (HCC) Take 2 tablets (1,000 mg total) by mouth 2 (two) times a day. 120 tablet 11/24/2018 9 documented in this encounter Discharge Disposition Disposition Code Departure Means Destination Discharge to home or self care documented in this encounter Progress Notes * Josué Del Valle MD PhD - 11/25/2018 7:37 PM CST BMT Progress 11/25/2018 Day: [id number] allo SCT. Subjective/Interval History: Patient is a 53 y.o. male with hx AML, s/p allo 2008, admits for cough, sinus pain, low grade fevers, malaise. Today, denies fatigue, malaise. Reports cough is improving, now denies sinus tenderness.With elevated glucose levels overnight, increasing insulin. Ready for D/C today. Doing well. Objective Vitals: Temp: [36.2 ??C (97.2 ??F)-37 ??C (98.6 ??F)] 37 ??C (98.6 ??F) Pulse: [88-109] 96 Resp: [17-20] 17 BP: (109-149)/(61-95) 125/66 Intake/Output Summary (Last 24 hours) at 11/25/18 1937 Last data filed at 11/25/18 0538 Gross per 24 hour Intake 2222 ml Output 900 ml Net 1322 ml Physical exam: General appearance: appears stated age, cooperative HEENT: Anicteric sclera, cGVHD changes noted to oral cavity, oral lesion to R buccal mucosa unchanged. Lungs: coarse, diminished breath sounds bilaterally. Heart: regular rate and rhythm, S1, S2 normal Abdomen: soft, non-tender; bowel sounds normal Extremities: No LE edema present, warm, dry Skin: Skin color, texture, turgor normal. No rashes or lesions Neurologic: Alert and oriented x4, non-focal exam Scheduled Meds: acyclovir 400 mg oral Q8H albuterol 2.5 mg nebulization QID (RT) atorvastatin 40 mg oral Daily ergocalciferol 50,000 Units oral Weekly fludrocortisone 0.1 mg oral BID fluticasone-salmeterol 1 puff inhalation BID insulin glargine 0.2 Units/kg subcutaneous QAM insulin lispro 1-4 Units subcutaneous Nightly insulin lispro 1-7 Units subcutaneous TID with meals insulin lispro 5 Units subcutaneous TID with meals levoFLOXacin 750 mg oral Daily - 0600 mycophenolate mofetil 1,000 mg oral BID nicotine 1 patch transdermal Daily ofloxacin 1 drop each eye QID predniSONE 10 mg oral BID rivaroxaban 20 mg oral Daily with dinner sodium chloride 0.9 % 30 mL swish & spit QID sodium chloride 0.9% 0.5-20 mL intra-catheter Q8H ROSA MARIA sodium chloride-sodium bicarbonate 1 packet each nostril Daily sulfamethoxazole-trimethoprim 320 mg of trimethoprim oral 2 times per day on Mon Angy tacrolimus 0.5 mg oral Every other day Continuous Infusions: sodium chloride 0.9% 30 mL/hr sodium chloride 0.9% 30 mL/hr PRN Meds:.??? acetaminophen ??? acetaminophen ? ? aluminum & magnesium nrkhtpbyz-kilvarowfnr-yalwxmrezbpnwpt-lidocaine (MAGIC MOUTHWASH) suspension 1-1-1 ??? bacitracin-polymyxin B ??? camphor-menthol ??? dextrose OR dextrose OR dextrose ??? dextrose OR dextrose OR dextrose ??? gabapentin ??? glucagon ??? glucagon ??? loperamide ??? magnesium sulfate ??? magnesium sulfate ??? lubricant ??? potassium chloride ??? potassium chloride ER ??? pramoxine ??? sodium chloride ??? sodium chloride 0.9% ??? sodium chloride 0.9% ??? sodium chloride 0.9% ??? white petrolatum-mineral oil Lab/Radiology/Diagnostic Review: Laboratory review: I have personally reviewed the following labs below. Lab results in the last 24 hours: Recent Results (from the past 24 hour(s)) POCT glucose Collection Time: 11/24/18 7:56 PM Result Value Ref Range Glucose, POC, bld 164 70 - 199 mg/dL POCT glucose Collection Time: 11/24/18 10:39 PM Result Value Ref Range Glucose, POC, bld 89 70 - 199 mg/dL Basic metabolic panel Collection Time: 11/25/18 5:36 AM Result Value Ref Range Sodium 130 (L) 135 - 145 mmol/L Potassium, pl 4.1 3.3 - 4.9 mmol/L Chloride 91 (L) 97 - 110 mmol/L CO2 32 22 - 32 mmol/L Anion Gap 7 2 - 15 mmol/L BUN 12 8 - 25 mg/dL Creatinine 0.78 (L) 0.80 - 1.30 mg/dL Glucose 271 (H) 70 - 199 mg/dL Calcium 8.6 8.5 - 10.3 mg/dL Magnesium Collection Time: 11/25/18 5:36 AM Result Value Ref Range Magnesium 1.4 1.4 - 2.5 mg/dL Phosphorus Collection Time: 11/25/18 5:36 AM Result Value Ref Range Phosphorus, pl 2.3 2.3 - 4.5 mg/dL CBC without differential Collection Time: 11/25/18 5:36 AM Result Value Ref Range WBC 16.2 (H) 3.8 - 9.9 K/cumm Hgb 13.8 13.0 - 17.5 g/dL Hct 40.0 38.9 - 50.3 % Plt 173 150 - 400 K/cumm MPV 11.1 9.1 - 12.3 fL RBC 3.79 (L) 4.30 - 5.80 M/cumm MCV 105.5 (H) 81.3 - 96.4 fL MCH 36.4 (H) 27.1 - 33.3 pg MCHC 34.5 32.3 - 35.7 g/dL RDW CV 13.5 11.1 - 14.9 % RDW SD 52.4 (H) 35.7 - 48.1 fL NRBC Abs 0.00 0.00 - 0.01 K/cumm Manual Differential Collection Time: 11/25/18 5:36 AM Result Value Ref Range Differential Manual Cells Counted 114 Neutrophil absolute 13.3 (H) 1.7 - 6.5 K/cumm Immature granulocyte absolute 0.0 0.0 - 0.1 K/cumm Lymphocytes absolute 1.3 0.8 - 3.3 K/cumm Monocyte absolute 1.4 (H) 0.2 - 0.8 K/cumm Basophils, abs 0.2 (H) 0.0 - 0.1 K/cumm Neutrophils 82.4 % Lymphocytes 5.3 % Monocytes 8.8 % Basophils 0.9 % Variant lymphs 2.6 (H) 0.0 - 0.0 % RBC morphology Present (A) Anisocytosis Slight (A) Poikilocytosis Moderate (A) Macrocytes 3-7/HPF (A) Platelet estimate Adequate POCT glucose Collection Time: 11/25/18 7:17 AM Result Value Ref Range Glucose, POC, bld 324 (H) 70 - 199 mg/dL POCT glucose Collection Time: 11/25/18 12:27 PM Result Value Ref Range Glucose, POC, bld 155 70 - 199 mg/dL POCT glucose Collection Time: 11/25/18 5:23 PM Result Value Ref Range Glucose, POC, bld 255 (H) 70 - 199 mg/dL Recent Labs Lab Units 11/25/18 0536 11/24/18 0535 11/23/18 0443 11/22/18 1120 WBC K/cumm 16.2* 11.7* 10.2* 13.5* HEMOGLOBIN g/dL 13.8 14.8 15.5 17.1 HEMATOCRIT % 40.0 42.7 45.4 48.3 NEUTROS PCT % 82.4 81.3 82.6 66.3 LYMPHS PCT % 5.3 10.7 7.8 24.0 MONOS PCT % 8.8 7.1 4.4 8.2 EOS PCT % -- -- -- 0.3 Recent Labs Lab Units 11/25/1853511/24/18 0535 11/23/18 0443 CREATININE mg/dL 0.78* 0.81 0.85 Assessment /Plan Depressed mood Assessment & Plan With feelings of depressed mood prior to [...] recommended pharm therapy. DVT (deep venous thrombosis) ([facility]) Assessment & Plan Cont Xarelto. COPD, severe ([facility]) Assessment & Plan Continues to smoke >1 ppd. -Cont steroids at current dose. -Cont Advair diskus BID, cont albuterol inh QID. -Encourage smoking cessation. Cont nicotine patch. Type 2 diabetes mellitus ([facility]) Assessment & Plan -Poorly controlled, recently stopped checking glucose as [...] increased dose metformin, pen needles and sent e- script to [facility] in [place] on 11/24. Pt has script for glucose strips waiting there as well. AML (acute myeloid leukemia) in remission ([facility]) Assessment & Plan -s/p sibling allo SCT on 11/09/09, now in CR with no e/o recurrence. 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 -Cont OI ppx with Bactrim, acyclovir. Hyvfc-skurue-mpqg disease ([facility]) Assessment & Plan cGVHD of eyes, mouth, 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 -Cont pred 10 mg BID, MMF 1g BID, tacrolimus 0.5 mg QOD. -F/u tac trough (due 11/25 AM). * Sinusitis Assessment & Plan Chronic issue over last 2 months. -With [...] Head CT 11/22 shows no PE-->no pneumonia. Improved pneumonia and sinusitis. Josué Del Valle MD, PhD SHARA TillmanP- Nurse Practitioner, Blood and Marrow Transplant S AND MERCHANDISING REPRESENTATIVE * Rogers Lagos RN - 11/25/2018 2:53 PM CST 11/25/18 1452 Communications Important Message from Medicare notice given to patient? Yes Based on a comprehensive family assessment, assistance with instrumental activities of daily livingafter discharge will be provided by [facility] Through the course of our work I determined that [facility] possesses the skill and ability to provideand monitor the care of the patient when he or she returns home. [facility] has the capacity to provide/monitor/arrange for the care of the patient. Finally, we determined that [facility] has the knowledgeof available resources and that combining them with their existing resources will suffice to sustain and care for the patient when he or she returns home. The treatment team is aware of this information. All are in agreement with the aftercare plan. To Discharge Home With Transportation And Support From Friends. Follow Up Appointment Complete. S AND MERCHANDISING REPRESENTATIVE S AND MERCHANDISING REPRESENTATIVE * Rogers Lagos RN - 11/25/2018 9:21 AM CST 11/25/18 0915 Patient Information Primary Caregiver Self Support System Children;Friends/neighbors Support system contact info (name, phone, availablity) shashank Yuan [phone] Income Information Income Source SSD/SSI Potential Discharge Needs Anticipated discharge level of care Return Home Communications Fiduciary Responsibility Patient/Designated decision maker was informed of [facility] fiduciary relationship as necessary Chart reviewed for initial review Patient admitted for treatment of: AML Information obtained from patient Insurance verified as Medicare Prescription Coverage: Medicare Admission Source: Home Patient/Family agree with discharge plan Based on a comprehensive family assessment, assistance with instrumental activities of daily livingafter discharge will be provided by His Friends Through the course of our work I determined that [facility] [employer] possesses the skill and ability to provide and monitor the care of the patient when he or she returns home. [facility] Friends has the capacity to provide/monitor/arrange for the care of the patient. Finally, we determined that [facility] Friends has the knowledge of available resources and that combining them with their existing resources will suffice to sustain and care for the patient when he or she returns home. The treatment team is aware of this information. All are in agreement with the aftercare plan. Goal Safe Discharge Plan To Continue To Follow for Discharge needs S AND MERCHANDISING REPRESENTATIVE S AND MERCHANDISING REPRESENTATIVE * Josefa Nur NP - 11/24/2018 11:39 AM CST BMT Progress 11/24/2018 Day: [id number] allo SCT. Subjective/Interval History: Patient is a 53 y.o. male with hx AML, s/p allo 2008, admits for cough, sinus pain, low grade fevers, malaise. Today, denies fatigue, malaise. Reports cough is improving, now denies sinus tenderness.With elevated glucose levels overnight, increasing insulin. Objective Vitals: Temp: [36.2 ??C (97.2 ??F)-36.9 ??C (98.4 ??F)] 36.4 ??C (97.5 ??F) Pulse: [87-99] 87 Resp: [17-20] 18 BP: (118-144)/(70-87) 144/87 Intake/Output Summary (Last 24 hours) at 11/24/18 1140 Last data filed at 11/24/18 0916 Gross per 24 hour Intake 2350 ml Output 650 ml Net 1700 ml Physical exam: General appearance: appears stated age, cooperative HEENT: Anicteric sclera, cGVHD changes noted to oral cavity, oral lesion to R buccal mucosa unchanged. Lungs: coarse, diminished breath sounds bilaterally. Heart: regular rate and rhythm, S1, S2 normal Abdomen: soft, non-tender; bowel sounds normal Extremities: No LE edema present, warm, dry Skin: Skin color, texture, turgor normal. No rashes or lesions Neurologic: Alert and oriented x4, non-focal exam Scheduled Meds: acyclovir 400 mg oral Q8H albuterol 2.5 mg nebulization QID (RT) atorvastatin 40 mg oral Daily cefepime 1,000 mg intravenous Q8H ROSA MARIA ergocalciferol 50,000 Units oral Weekly fludrocortisone 0.1 mg oral BID fluticasone-salmeterol 1 puff inhalation BID insulin glargine 0.2 Units/kg subcutaneous QAM insulin lispro 1-4 Units subcutaneous Nightly insulin lispro 1-7 Units subcutaneous TID with meals insulin lispro 5 Units subcutaneous TID with meals mycophenolate mofetil 1,000 mg oral BID nicotine 1 patch transdermal Daily ofloxacin 1 drop each eye QID predniSONE 10 mg oral BID rivaroxaban 20 mg oral Daily with dinner sodium chloride 0.9 % 30 mL swish & spit QID sodium chloride 0.9% 0.5-20 mL intra-catheter Q8H [facility] sulfamethoxazole-trimethoprim 320 mg of trimethoprim oral 2 times per day on Sat [START ON 11/25/2018] tacrolimus 0.5 mg oral Every other day vancomycin 1,000 mg intravenous Q12H Continuous Infusions: sodium chloride 0.9% 30 mL/hr sodium chloride 0.9% 30 mL/hr PRN Meds:.??? acetaminophen ??? acetaminophen ? ? aluminum & magnesium ucwsivhtx-qgjpwbqnpmx-wacpbgwkpksfjqt-lidocaine (MAGIC MOUTHWASH) suspension 1-1-1 ??? bacitracin-polymyxin B ??? camphor-menthol ??? dextrose OR dextrose OR dextrose ??? dextrose OR dextrose OR dextrose ??? gabapentin ??? glucagon ??? glucagon ??? loperamide ??? magnesium sulfate ??? magnesium sulfate ??? lubricant ??? potassium chloride ??? potassium chloride ER ??? pramoxine ??? sodium chloride ??? sodium chloride 0.9% ??? sodium chloride 0.9% ??? sodium chloride 0.9% ??? white petrolatum-mineral oil Lab/Radiology/Diagnostic Review: Laboratory review: I have personally reviewed the following labs below. Lab results in the last 24 hours: Recent Results (from the past 24 hour(s)) POCT glucose Collection Time: 11/23/18 12:38 PM Result Value Ref Range Glucose, POC, bld 151 70 - 199 mg/dL POCT glucose Collection Time: 11/23/18 5:37 PM Result Value Ref Range Glucose, POC, bld 249 (H) 70 - 199 mg/dL POCT glucose Collection Time: 11/23/18 9:33 PM Result Value Ref Range Glucose, POC, bld 316 (H) 70 - 199 mg/dL Glucose comment 1 RN Notified Type and screen Collection Time: 11/24/18 5:35 AM Result Value Ref Range ABO Rh A Positive Ursula, indirect Negative Comprehensive metabolic panel Collection Time: 11/24/18 5:35 AM Result Value Ref Range Sodium 135 135 - 145 mmol/L Potassium, pl 4.4 3.3 - 4.9 mmol/L Chloride 96 (L) 97 - 110 mmol/L CO2 31 22 - 32 mmol/L Anion Gap 8 2 - 15 mmol/L BUN 16 8 - 25 mg/dL Creatinine 0.81 0.80 - 1.30 mg/dL Glucose 470 (Critical) 70 - 199 mg/dL Calcium 8.8 8.5 - 10.3 mg/dL Bilirubin, total 0.6 0.1 - 1.2 mg/dL Protein, pl 6.1 (L) 6.5 - 8.5 g/dL Albumin 3.6 3.5 - 5.0 g/dL Alk phos 73 40 - 130 Units/L ALT 29 7 - 55 Units/L AST 25 10 - 50 Units/L Uric acid Collection Time: 11/24/18 5:35 AM Result Value Ref Range Uric acid 3.0 3.0 - 8.0 mg/dL Lactate dehydrogenase (LD) Collection Time: 11/24/18 5:35 AM Result Value Ref Range Lactate dehydrogenase (LDH) 386 (H) 100 - 250 Units/L aPTT Collection Time: 11/24/18 5:35 AM Result Value Ref Range aPTT 34.1 25.0 - 37.0 sec Protime-INR Collection Time: 11/24/18 5:35 AM Result Value Ref Range PT 16.1 (H) 8.5 - 13.0 sec INR 1.49 (H) 0.80 - 1.21 Magnesium Collection Time: 11/24/18 5:35 AM Result Value Ref Range Magnesium 1.5 1.4 - 2.5 mg/dL Phosphorus Collection Time: 11/24/18 5:35 AM Result Value Ref Range Phosphorus, pl 3.1 2.3 - 4.5 mg/dL CBC without differential Collection Time: 11/24/18 5:35 AM Result Value Ref Range WBC 11.7 (H) 3.8 - 9.9 K/cumm Hgb 14.8 13.0 - 17.5 g/dL Hct 42.7 38.9 - 50.3 % Plt 155 150 - 400 K/cumm MPV 10.7 9.1 - 12.3 fL RBC 4.13 (L) 4.30 - 5.80 M/cumm MCV 103.4 (H) 81.3 - 96.4 fL MCH 35.8 (H) 27.1 - 33.3 pg MCHC 34.7 32.3 - 35.7 g/dL RDW CV 13.5 11.1 - 14.9 % RDW SD 51.3 (H) 35.7 - 48.1 fL NRBC Abs 0.00 0.00 - 0.01 K/cumm Manual Differential Collection Time: 11/24/18 5:35 AM Result Value Ref Range Differential Manual Cells Counted 112 Neutrophil absolute 9.5 (H) 1.7 - 6.5 K/cumm Immature granulocyte absolute 0.0 0.0 - 0.1 K/cumm Lymphocytes absolute 1.4 0.8 - 3.3 K/cumm Monocyte absolute 0.8 0.2 - 0.8 K/cumm Neutrophils 81.3 % Lymphocytes 10.7 % Monocytes 7.1 % Variant lymphs 0.9 (H) 0.0 - 0.0 % RBC morphology Present (A) Anisocytosis Slight (A) Poikilocytosis Marked (A) Macrocytes 3-7/HPF (A) Echinocytes > 15/HPF (A) Teardrop cells 3-7/HPF (A) Platelet estimate Adequate Critical Result Callback Chemistry Collection Time: 11/24/18 5:35 AM Result Value Ref Range Date Notified [id number] Time Notified 633 TestName glucose Called/Read Back latia gustafson Credentials RN Called By POCT glucose Collection Time: 11/24/18 7:47 AM Result Value Ref Range Glucose, POC, bld 460 (Critical) 70 - 199 mg/dL Glucose comment 1 Doctor Notified POCT glucose Collection Time: 11/24/18 10:25 AM Result Value Ref Range Glucose, POC, bld 315 (H) 70 - 199 mg/dL Recent Labs Lab Units 11/24/18 0535 11/23/18 0443 11/22/18 1120 WBC K/cumm 11.7* 10.2* 13.5* HEMOGLOBIN g/dL 14.8 15.5 17.1 HEMATOCRIT % 42.7 45.4 48.3 NEUTROS PCT % 81.3 82.6 66.3 LYMPHS PCT % 10.7 7.8 24.0 MONOS PCT % 7.1 4.4 8.2 EOS PCT % -- -- 0.3 Recent Labs Lab Units 11/24/1835 11/23/183 11/22/18 1120 CREATININE mg/dL 0.81 0.85 0.92 Assessment /Plan AML (acute myeloid leukemia) in remission ([facility]) Assessment & Plan -s/p sibling allo SCT on 11/09/09, now in CR with no e/o recurrence. 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 -Cont OI ppx with Bactrim, acyclovir. * Sinusitis Assessment & Plan Chronic issue over last 2 months. -With [...] Head CT 11/22 shows no PE-->no pneumonia. Depressed mood Assessment & Plan With feelings of depressed mood prior to [...] recommended pharm therapy. DVT (deep venous thrombosis) ([facility]) Assessment & Plan Cont Xarelto. COPD, severe ([facility]) Assessment & Plan Continues to smoke >1 ppd. -Cont steroids at current dose. -Cont Advair diskus BID, cont albuterol inh QID. -Encourage smoking cessation. Cont nicotine patch. Type 2 diabetes mellitus ([facility]) Assessment & Plan -Poorly controlled, recently stopped checking glucose as [...] increased dose metformin, pen needles and sent e- script to [facility] in [place] on 11/24. Pt has script for glucose strips waiting there as well. 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 -Cont pred 10 mg BID, MMF 1g BID, tacrolimus 0.5 mg QOD. -F/u tac trough (due 8 AM). CORONA Tillman- Nurse Practitioner, Blood and Marrow Transplant Cosigned by Josué Del Valle MD PhD at 11/24/2018 7:10 PM SALES AND MERCHANDISING REPRESENTATIVE S AND MERCHANDISING REPRESENTATIVE S AND MERCHANDISING REPRESENTATIVE S AND MERCHANDISING REPRESENTATIVE Associated attestation - Josué Del Valle., MD PhD - 11/24/2018 7:10 PM SALES AND MERCHANDISING REPRESENTATIVE I have seen and examined the patient on 11/24/18 in conjunction with the non- physician provider. History: AML Physical Exam: GEN: no acute distress HEENT: no mucositis, anicteric sclera Pulm: clear to ausculation bilaterally CV: rate and rhythm regular ABD: soft, nondistended, nontender, bowel sounds active Skin: no rashes, lesions Ext: No edema Neuro: alert, oriented x 4 Assessment/Plan: Bronchitis improving. D/C today Josué Del Valle MD PhD * Boom Josefaflori Valente MEDICAL SERVICE TECHNICIAN - 11/23/2018 11:16 AM CST BMT Progress 11/23/2018 Subjective/Interval History: Patient is a 53 y.o. male with hx AML s/p allo SCT in 2008, admits for chronic cough with yellow sputum production, sinus pressure, low grade fevers, malaise. In clinic, there was a concern for pneumonia/sinusitis, and he was admitted. This AM, reports continued occasional cough, now denies facial pain, does report tinnitus. Afebrile, hemodynamically stable. Objective Vitals: Temp: [36.4 ??C (97.5 ??F)-37.6 ??C (99.7 ??F)] 36.4 ??C (97.5 ??F) Pulse: [53-104] 53 Resp: [17-20] 18 BP: (98-127)/(57-78) 121/66 Intake/Output Summary (Last 24 hours) at 11/23/18 1116 Last data filed at 11/22/18 2200 Gross per 24 hour Intake 3231 ml Output 1200 ml Net 2031 ml Physical exam: General appearance: appears stated age, cooperative HEENT: Anicteric sclera, oral ulceration with white base to R buccal mucosa, GvHD type changes Lungs: coarse breath sounds bilaterally. Heart: regular rate and rhythm, S1, S2 normal Abdomen: soft, non-tender; bowel sounds normal Extremities: No LE edema present, warm, dry Skin: Skin color, texture, turgor normal. No rashes or lesions Neurologic: Alert and oriented x4, non-focal exam Scheduled Meds: acyclovir 400 mg oral Q8H albuterol 5 mg nebulization QID (RT) atorvastatin 40 mg oral Daily ergocalciferol 50,000 Units oral Weekly fludrocortisone 0.1 mg oral BID fluticasone-salmeterol 1 puff inhalation BID (RT) insulin lispro 1-4 Units subcutaneous Nightly insulin lispro 1-7 Units subcutaneous TID with meals levoFLOXacin 750 mg oral Daily - 0600 metFORMIN XR 500 mg oral BID mycophenolate mofetil 1,000 mg oral BID nicotine 1 patch transdermal Daily ofloxacin 1 drop each eye QID predniSONE 10 mg oral BID rivaroxaban 20 mg oral Daily with dinner sodium chloride 0.9 % 30 mL swish & spit QID sodium chloride 0.9% 0.5-20 mL intra-catheter Q8H ROSA MARIA [START ON 11/24/2018] sulfamethoxazole-trimethoprim 320 mg of trimethoprim oral 2 times per day on Mon Angy tacrolimus 0.5 mg oral Daily Continuous Infusions: sodium chloride 0.9% 30 mL/hr sodium chloride 0.9% 30 mL/hr PRN Meds:.??? acetaminophen ??? acetaminophen ? ? aluminum & magnesium ojzyzsjim-lwcrzyabcfu-tozguvmrveabofj-lidocaine (MAGIC MOUTHWASH) suspension 1-1-1 ??? bacitracin-polymyxin B ??? camphor-menthol ??? dextrose OR dextrose OR dextrose ??? gabapentin ??? glucagon ??? loperamide ??? magnesium sulfate ??? magnesium sulfate ??? lubricant ??? potassium chloride ??? potassium chloride ER ??? pramoxine ??? sodium chloride ??? sodium chloride 0.9% ??? sodium chloride 0.9% ??? sodium chloride 0.9% ??? white petrolatum-mineral oil Lab/Radiology/Diagnostic Review: Laboratory review: I have personally reviewed the following labs below. Lab results in the last 24 hours: Recent Results (from the past 24 hour(s)) CBC with auto differential Collection Time: 11/22/18 11:20 AM Result Value Ref Range WBC 13.5 (H) 3.8 - 9.9 K/cumm Hgb 17.1 13.0 - 17.5 g/dL Hct 48.3 38.9 - 50.3 % Plt 151 150 - 400 K/cumm MPV 11.6 9.1 - 12.3 fL RBC 4.67 4.30 - 5.80 M/cumm MCV 103.4 (H) 81.3 - 96.4 fL MCH 36.6 (H) 27.1 - 33.3 pg MCHC 35.4 32.3 - 35.7 g/dL RDW CV 13.3 11.1 - 14.9 % RDW SD 50.8 (H) 35.7 - 48.1 fL NRBC Abs 0.00 0.00 - 0.01 K/cumm Comprehensive metabolic panel Collection Time: 11/22/18 11:20 AM Result Value Ref Range Sodium 132 (L) 135 - 145 mmol/L Potassium, pl 4.3 3.3 - 4.9 mmol/L Chloride 93 (L) 97 - 110 mmol/L CO2 29 22 - 32 mmol/L Anion Gap 10 2 - 15 mmol/L BUN 13 8 - 25 mg/dL Creatinine 0.92 0.80 - 1.30 mg/dL Glucose 438 (H) 70 - 199 mg/dL Calcium 9.2 8.5 - 10.3 mg/dL Bilirubin, total 0.8 0.1 - 1.2 mg/dL Protein, pl 6.5 6.5 - 8.5 g/dL Albumin 3.5 3.5 - 5.0 g/dL Alk phos 76 40 - 130 Units/L ALT 28 7 - 55 Units/L AST 18 10 - 50 Units/L Magnesium Collection Time: 11/22/18 11:20 AM Result Value Ref Range Magnesium 1.4 1.4 - 2.5 mg/dL Phosphorus Collection Time: 11/22/18 11:20 AM Result Value Ref Range Phosphorus, pl 1.6 (L) 2.3 - 4.5 mg/dL Lactate Collection Time: 11/22/18 11:20 AM Result Value Ref Range Lactate 3.8 (H) 0.7 - 2.0 mmol/L Blood culture Blood Collection Time: 11/22/18 11:20 AM Result Value Ref Range Report Preliminary Report: No growth to date. Blood culture Blood Collection Time: 11/22/18 11:20 AM Result Value Ref Range Report Preliminary Report: No growth to date. Type and screen Collection Time: 11/22/18 11:20 AM Result Value Ref Range ABO Rh A Positive Ursula, indirect Negative Differential, auto Collection Time: 11/22/18 11:20 AM Result Value Ref Range Neutrophil absolute 9.0 (H) 1.7 - 6.5 K/cumm Immature granulocyte absolute 0.1 0.0 - 0.1 K/cumm Lymphocytes absolute 3.2 0.8 - 3.3 K/cumm Monocyte absolute 1.1 (H) 0.2 - 0.8 K/cumm Eosinophils absolute 0.0 0.0 - 0.5 K/cumm Basophils, abs 0.0 0.0 - 0.1 K/cumm Neutrophils 66.3 % Immature granulocytes 1.0 % Lymphocytes 24.0 % Monocytes 8.2 % Eosinophils 0.3 % Basophils 0.2 % Hemoglobin A1c Collection Time: 11/22/18 11:20 AM Result Value Ref Range Hgb A1C 14.3 (H) 4.0 - 5.6 % Estimated Average Glucose 364 mg/dL Respiratory pathogen PCR Nasopharyngeal Collection Time: 11/22/18 11:21 AM Result Value Ref Range Report Final Report: Respiratory Pathogen nucleic acids NOT DETECTED (NEGATIVE) Urinalysis reflex to microscopic and culture Urine Collection Time: 11/22/18 11:21 AM Result Value Ref Range Color, ur Yellow Yellow Clarity, ur Clear Clear Specific gravity, ur >1.042 (H) 1.010 - 1.025 pH, urine 6.0 Protein, ur ql Negative Negative Glucose, ur ql 3+ (A) Negative Ketones, ur Negative Negative Bilirubin, ur Negative Negative Blood, ur Negative Negative Urobilinogen, ur <2.0 <2.0 mg/dL Nitrite, ur Negative Negative Leukocyte esterase, ur Negative Negative POCT glucose Collection Time: 11/22/18 12:35 PM Result Value Ref Range Glucose, POC, bld 457 (Critical) 70 - 199 mg/dL Glucose comment 1 Glu2: POCT glucose Collection Time: 11/22/18 2:15 PM Result Value Ref Range Glucose, POC, bld 319 (H) 70 - 199 mg/dL POCT glucose Collection Time: 11/22/18 5:33 PM Result Value Ref Range Glucose, POC, bld 92 70 - 199 mg/dL POCT glucose Collection Time: 11/22/18 9:52 PM Result Value Ref Range Glucose, POC, bld 237 (H) 70 - 199 mg/dL Magnesium Collection Time: 11/23/18 4:43 AM Result Value Ref Range Magnesium 1.5 1.4 - 2.5 mg/dL Phosphorus Collection Time: 11/23/18 4:43 AM Result Value Ref Range Phosphorus, pl 3.4 2.3 - 4.5 mg/dL Tacrolimus level trough Collection Time: 11/23/18 4:43 AM Result Value Ref Range Tacrolimus, trough <1.0 ng/mL CBC without differential Collection Time: 11/23/18 4:43 AM Result Value Ref Range WBC 10.2 (H) 3.8 - 9.9 K/cumm Hgb 15.5 13.0 - 17.5 g/dL Hct 45.4 38.9 - 50.3 % Plt 152 150 - 400 K/cumm MPV 11.2 9.1 - 12.3 fL RBC 4.35 4.30 - 5.80 M/cumm MCV 104.4 (H) 81.3 - 96.4 fL MCH 35.6 (H) 27.1 - 33.3 pg MCHC 34.1 32.3 - 35.7 g/dL RDW CV 13.6 11.1 - 14.9 % RDW SD 52.7 (H) 35.7 - 48.1 fL NRBC Abs 0.00 0.00 - 0.01 K/cumm Manual Differential Collection Time: 11/23/18 4:43 AM Result Value Ref Range Differential Manual Cells Counted 115 Neutrophil absolute 8.4 (H) 1.7 - 6.5 K/cumm Immature granulocyte absolute 0.1 0.0 - 0.1 K/cumm Lymphocytes absolute 1.2 0.8 - 3.3 K/cumm Monocyte absolute 0.4 0.2 - 0.8 K/cumm Neutrophils 82.6 % Lymphocytes 7.8 % Monocytes 4.4 % Myelocytes 0.9 % Variant lymphs 4.3 (H) 0.0 - 0.0 % RBC morphology Present (A) Anisocytosis Slight (A) Poikilocytosis Marked (A) Macrocytes 3-7/HPF (A) Target cells 3-7/HPF (A) Platelet estimate Adequate Basic metabolic panel Collection Time: 11/23/18 4:43 AM Result Value Ref Range Sodium 137 135 - 145 mmol/L Potassium, pl 4.8 3.3 - 4.9 mmol/L Chloride 99 97 - 110 mmol/L CO2 31 22 - 32 mmol/L Anion Gap 7 2 - 15 mmol/L BUN 11 8 - 25 mg/dL Creatinine 0.85 0.80 - 1.30 mg/dL Glucose 223 (H) 70 - 199 mg/dL Calcium 8.7 8.5 - 10.3 mg/dL Hemoglobin A1c Collection Time: 11/23/18 4:43 AM Result Value Ref Range Hgb A1C 14.2 (H) 4.0 - 5.6 % Estimated Average Glucose 361 mg/dL POCT glucose Collection Time: 11/23/18 9:15 AM Result Value Ref Range Glucose, POC, bld 333 (H) 70 - 199 mg/dL Recent Labs Lab Units 11/23/18 0443 11/22/18 1120 WBC K/cumm 10.2* 13.5* HEMOGLOBIN g/dL 15.5 17.1 HEMATOCRIT % 45.4 48.3 NEUTROS PCT % 82.6 66.3 LYMPHS PCT % 7.8 24.0 MONOS PCT % 4.4 8.2 EOS PCT % -- 0.3 Recent Labs Lab Units 11/23/18 0443 11/22/18 1120 CREATININE mg/dL 0.85 0.92 Assessment /Plan AML (acute myeloid leukemia) in remission ([facility]) Assessment & Plan -s/p sibling allo SCT on 11/09/09, now in CR with no e/o recurrence. 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 -Cont OI ppx with Bactrim, acyclovir. DVT (deep venous thrombosis) ([facility]) Assessment & Plan Cont Xarelto. COPD, severe ([facility]) Assessment & Plan Continues to smoke >1 ppd. -Cont steroids at current dose. -Cont Advair diskus BID, cont albuterol inh QID. -Encourage smoking cessation. Cont nicotine patch. Type 2 diabetes mellitus ([facility]) Assessment & Plan -Poorly controlled, recently stopped checking glucose as ran out of strips. -Cont Accu QID. -Cont SSI Lispro, hold metformin. 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 -Cont pred 10 mg BID, MMF 1g BID, tacrolimus 0.5 mg QOD. -F/u tac trough tomorrow. * Sinusitis Assessment & Plan Chronic issue over last 2 months. -No nasal drainage, reportedly had some frontal sinus pain as outpt, no sinus tenderness on exam today. -Will continue IV anbx with cefepime, vancomycin for a couple days as cx pending. -Low risk of fungal sinusitis in s/o multiple immunosuppressants, but will have ENT c/s to bedside scope. -Sinus CT 11/22 shows maxillary, sphenoid sinusitis. Head CT 11/22 shows no PE< no pneumonia. CORONA Tillman- Nurse Practitioner, Blood and Marrow Transplant Cosigned by Josué Del Valle MD PhD at 11/23/2018 12:05 PM SALES AND MERCHANDISING REPRESENTATIVE S AND MERCHANDISING REPRESENTATIVE S AND MERCHANDISING REPRESENTATIVE Associated attestation - Josué Del Valle MD PhD - 11/23/2018 12:05 PM SALES AND MERCHANDISING REPRESENTATIVE I have seen and examined the patient on 11/23/18 in conjunction with the non- physician provider. History:AML and pneumonia Physical Exam: GEN: no acute distress HEENT: no mucositis, anicteric sclera Pulm: clear to ausculation bilaterally CV: rate and rhythm regular ABD: soft, nondistended, nontender, bowel sounds active Skin: no rashes, lesions Ext: No edema Neuro: alert, oriented x 4 Assessment/Plan: IV antibiotics, Nebs and d/c in 2-3 days Josué Del Valle MD PhD documented in this encounter H&P Notes * Michael Fan MD - 11/22/2018 3:32 PM CST Images from the original note were not included. BMT History and Physical Visit date: 11/22/2018 Patient: Brady Jones Attending Physician: Josué Del Valle MD PhD Chief Complaint: Sinusitis HPI: Mr. 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 Presented today to [facility] for a week of cough with occasional yellow sputum production, also new headaches and frontal sinus pressure. Per report had temp up to 100.0 over the past week, but never actually spiked a fever. He had mild nausea over the past week with no vomiting. He does note that he hasn't been taking his insulin for over a week as he ran out of his prescription. Two days prior to this presentation went to [facility], I do not have records, but he reports being treated with steroids and albuterol which did not markedly improve his symptoms. On arrivals to [facility]: afebrile, HR 118, RR 18/min, BP 100/75mmHg. Labs showing Hgb 17.1, Wbc 13.5, PLT 151, ANC 9.0, chemistry panel notable for glucose of 438 and pseudohyponatremia to 132, normal electrolytes and renal function. He underwent a CT chest that showed no e/o PE, resolved prior effusionand RLL consolidation. Head CT with contrast showed mucosal thickening of the maxillary and sphenoid sinuses with no extrasinus extension. RVP was negative. He received 2L of IVF with resolution of tachycardia. Blood cultures drawn and he received 1xcefepime+vancomycin. His hyperglycemia was treated with 12 units of Lispro. On arrival to the floor: Vitals all stable. Appears very comfortable and non-toxic on room air. Repeat history notes a tinnitus, mild frontal sinus pressure and mild cough with yellow sputum since gi with no changeor worsening of his symptoms since that time. The degree of sputum production has not changed. He did not have rhinorrhea or sinus drainage. Headaches have been persistent yet not worse. Tinnitus is intermittent in both ears. He has not been using his ventolin a lot as he doesn't have many puffs in a bottle . He continues to smoke 1.5 packs per day. 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 TREATMENT HISTORY: Induction with 7+3 and HiDAC 1. consolidation x3. 2. Decitabine maintenance on the CALGB 11682 protocol. 3. 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 [...] ??? [place] TUBE PLACEMENT N/A 01/28/2013 Allergies as of 11/22/2018 - Reviewed 11/22/2018 Allergen Reaction Noted ??? Adhesive Redness Prescriptions Prior to Admission Medication Sig Dispense Refill Last Dose ??? acyclovir (ZOVIRAX) 400 mg tablet TAKE ONE TABLET BY MOUTH EVERY 8 HOURS 270 tablet 1 11/21/2018 at Unknown time ??? ADVAIR DISKUS 100-50 mcg/dose diskus inhaler INHALE 1 DOSE BY MOUTH TWICE DAILY 60 each 3 11/21/2018 at Unknown time ??? atorvastatin (LIPITOR) 40 mg tablet Take 1 tablet (40 mg total) by mouth daily. 11/21/2018 at Unknown time ??? ergocalciferol (VITAMIN D) 50,000 unit capsule Take 1 capsule (50,000 Units total) by mouth once a week. 4 capsule 3 Past Week at Unknown time ??? fludrocortisone 0.1 mg tablet Take 1 tablet (0.1 mg total) by mouth 2 (two) times a day. 60 tablet 2 11/21/2018 at Unknown time ??? gabapentin (NEURONTIN) 100 mg capsule Take 1 capsule by mouth as needed. Past Month at Unknown time ??? gabapentin (NEURONTIN) 300 mg capsule Take 300 mg by mouth as needed. 11/21/2018 at Unknown time ??? glucagon (glucagon) 1 mg kit USE DIRECTED AT SCHOOL AND HOME More than a month at Unknown time ??? HUMALOG KWIKPEN INSULIN 100 unit/mL insulin pen Past Week at Unknown time ??? metFORMIN XR (GLUCOPHAGE XR) 500 mg 24 hr tablet Take 1 tablet by mouth 2 (two) times a day. 11/21/2018 at Unknown time ??? mycophenolate mofetil (CELLCEPT) 500 mg tablet Take 2 tablets (1,000 mg total) by mouth 2 (two)times a day. 11/21/2018 at Unknown time ??? nicotine (NICODERM CQ) [address] on the skin. Past Month at Unknown time ??? ofloxacin (OCUFLOX) 0.3 % ophthalmic solution Administer 1 drop into both eyes 4 (four) times aday. 5 mL 11 11/22/2018 at Unknown time ??? predniSONE (DELTASONE) 10 mg tablet Take 2 tablets (20 mg total) by mouth daily. 120 tablet 3 11/21/2018 at Unknown time ??? sulfamethoxazole-trimethoprim (BACTRIM,SEPTRA) 800-160 mg per tablet Take 1 tablet by mouth 2 (two) times a day. On Saturday/ 16 tablet 6 Past Week at Unknown time ??? tacrolimus (PROGRAF) 0.5 mg capsule Take 1 capsule (0.5 mg total) by mouth daily. 60 capsule 6 11/21/2018 at Unknown time ??? VENTOLIN HFA 90 mcg/actuation inhaler INHALE 1 TO 2 PUFFS BY MOUTH EVERY 4 HOURS NEEDED FOR SHORTNESS OF BREATH 1 Inhaler 2 11/21/2018 at Unknown time ??? XARELTO 20 mg tablet TAKE 1 TABLET BY MOUTH ONCE DAILY WITH FOOD 30 tablet 2 11/21/2018 at Unknown time Social History Social History ??? Marital status: Spouse name: N/A ??? Number of children: N/A ??? Years of education: N/A Occupational History ??? Not on file. Social History Main Topics ??? Smoking status: Current Every Day Smoker- 1.5 packs per day ??? Smokeless tobacco: Never Used Comment: Pt not interested in smoking cessation program ??? Alcohol use Not on file ??? Drug use: Unknown ??? Sexual activity: Not on file Other Topics Concern ??? Not on file Social History Narrative : (Added by KRYSTAL Conv) No alcohol use : (Added by KRYSTAL Conv) Family History Problem Relation Age of Onset ??? Heart disease Mother Family history of cardiac disorder - (Added by KRYSTAL Conv) Prescriptions Prior to Admission Medication Sig Dispense Refill Last Dose ??? acyclovir (ZOVIRAX) 400 mg tablet TAKE ONE TABLET BY MOUTH EVERY 8 HOURS 270 tablet 1 11/21/2018 at Unknown time ??? ADVAIR DISKUS 100-50 mcg/dose diskus inhaler INHALE 1 DOSE BY MOUTH TWICE DAILY 60 each 3 11/21/2018 at Unknown time ??? atorvastatin (LIPITOR) 40 mg tablet Take 1 tablet (40 mg total) by mouth daily. 11/21/2018 at Unknown time ??? ergocalciferol (VITAMIN D) 50,000 unit capsule Take 1 capsule (50,000 Units total) by mouth once a week. 4 capsule 3 Past Week at Unknown time ??? fludrocortisone 0.1 mg tablet Take 1 tablet (0.1 mg total) by mouth 2 (two) times a day. 60 tablet 2 11/21/2018 at Unknown time ??? gabapentin (NEURONTIN) 100 mg capsule Take 1 capsule by mouth as needed. Past Month at Unknown time ??? gabapentin (NEURONTIN) 300 mg capsule Take 300 mg by mouth as needed. 11/21/2018 at Unknown time ??? glucagon (glucagon) 1 mg kit USE DIRECTED AT SCHOOL AND HOME More than a month at Unknown time ??? HUMALOG KWIKPEN INSULIN 100 unit/mL insulin pen Past Week at Unknown time ??? metFORMIN XR (GLUCOPHAGE XR) 500 mg 24 hr tablet Take 1 tablet by mouth 2 (two) times a day. 11/21/2018 at Unknown time ??? mycophenolate mofetil (CELLCEPT) 500 mg tablet Take 2 tablets (1,000 mg total) by mouth 2 (two)times a day. 11/21/2018 at Unknown time ??? nicotine (NICODERM CQ) [address] on the skin. Past Month at Unknown time ??? ofloxacin (OCUFLOX) 0.3 % ophthalmic solution Administer 1 drop into both eyes 4 (four) times aday. 5 mL 11 11/22/2018 at Unknown time ??? predniSONE (DELTASONE) 10 mg tablet Take 2 tablets (20 mg total) by mouth daily. 120 tablet 3 11/21/2018 at Unknown time ??? sulfamethoxazole-trimethoprim (BACTRIM,SEPTRA) 800-160 mg per tablet Take 1 tablet by mouth 2 (two) times a day. On Saturday/ 16 tablet 6 Past Week at Unknown time ??? tacrolimus (PROGRAF) 0.5 mg capsule Take 1 capsule (0.5 mg total) by mouth daily. 60 capsule 6 11/21/2018 at Unknown time ??? VENTOLIN HFA 90 mcg/actuation inhaler INHALE 1 TO 2 PUFFS BY MOUTH EVERY 4 HOURS NEEDED FOR SHORTNESS OF BREATH 1 Inhaler 2 11/21/2018 at Unknown time ??? XARELTO 20 mg tablet TAKE 1 TABLET BY MOUTH ONCE DAILY WITH FOOD 30 tablet 2 11/21/2018 at Unknown time Review of Systems: See above HPI. All other systems negative. Physical Exam: Temp: [36.7 ??C (98.1 ??F)-37.4 ??C (99.3 ??F)] 37 ??C (98.6 ??F) Pulse: [79-118] 96 Resp: [18] 18 BP: (100-127)/(69-78) 127/69 General: alert and oriented pleasant man in no acute distress. HEENT: nc/at, PERRLA, EOMI, sclera anicteric, moist mucous membrane, small white ulcer in right buccal area, per patient chronic. Attempted to examine ears, however technical difficulties with equipment. Neck: supple with no lymphadenopathy. Heart: RRR with no murmurs, rubs or gallops. Lungs: Diffuse wheezing with very prolonged expiratory phase and poor air movement in inspiration. Abd: non-distended, soft, non-tender, no hepatosplenomegaly, bowel sounds normoactive. Ext: warm and well perfused with no clubbing cyanosis. Has chronic LE edema to mid maza which is unchanged, nontender. Neuro: A&Ox4, motor/sensory grossly intact. Psych:normal affect, judgement and insight appropriate within context of encounter. Laboratory Interpretation: CBC- mild leukocytosis with ANC 9.0. May be mild hemoconcentration given degree of hyperglycemia. CMP- normal kidney function. Hyperglycemia. Pseudohyponatremia. RVP negative Blood cultures pending Imaging Interpretation: 11/22/18 CT head- maxillary and sphenoid sinusitis 11/22/18 CT chest- no PE, no pneumonia. 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 No rhinorrhea. Only mild frontal sinus pressure. No tenderness on exam. RVP negative. I do not see a compelling reason to continue broad spectrum IV antibiotics. At this time will de-escalate to Levofloxacin (which would also treat any underlying COPD exacerbation).Given his degree of drug induced immunosuppresion he is a risk for fungal sinusitis and we will ask out colleagues from ENT to scope in the AM in order to rule that out. He is currently not septic and appears well, I will hold off on starting antifungals. - Levofloxacin 750mg daily for 5 days. - ENT consult in the AM for bedside scope and evaluation of tinnitus. 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 Has been in remission since then with no e/o recurrence. C/b chronic GvHD (see below) for which he is on prednisone, MMF and FK506. 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 - continue prednisone 10mg bid - Continue MMF 1000mg BID - Tacrolimus 0.5mg daily- check trough level tomorrow - OI prophylaxis: Bactrim DS 1 tab BID on Sat/Angy, Acyclovir 400mg TID #COPD #Tobacco use disorder Continues to smoke 1.5 PPD. PFTs from 10/27/18 showing significant interval worsening of obstructive ventilatory defect which does significantly improve after bronchodilators. Normal lung volumes with e/o air trapping. Markedly decreased DLCO. CT scan showing e/o emphysema. - secondary to smoking+ possible contribution from chronic GvHD - Will continue steroids at same dose - Advair disk 100-50 1 puff BID - Albuterol QID RT - Encourage smoking cessation. Offer nicotine products while in house. #DM2 Poorly controlled, partially due to recently stopping insulin as his prescription ran out. - CBG QID AC+bedtime - Insulin sliding scale high. - Metformin XR 500mg BID #Vitamin D deficiency - continue erfocalciferol 50,000 units weekly on Saturdays. #History of DVT 2002 -continue Xarelto 20mg with dinner. General Care Diet: Adult Diet Regular Thromboprophylaxis: Xarelto Glycemic control: Insulin as above Analgesia: NA Dispo: Acute care Code status: Full Code ? The patient will be staffed with my attending physician Dr. Del Valle within 24 hours. Michael Fan MD Clinical Fellow- PGY5 Divisions of Hematology and Oncology Cosigned by Josué Del Valle MD PhD at 11/23/2018 11:18 AM SALES AND MERCHANDISING REPRESENTATIVE S AND MERCHANDISING REPRESENTATIVE S AND MERCHANDISING REPRESENTATIVE Associated attestation - Josué Del Valle MD PhD - 11/23/2018 11:18 AM SALES AND MERCHANDISING REPRESENTATIVE I have seen and examined the patient on 11/23/18. I agree with the findings and plan of care as documented in the resident/fellow's note. Josué Del Valle MD PhD * Louise Resendiz NP - 11/22/2018 8:56 AM CST Oncology Progress Note [facility] Chief Complaint: Persistent cough, Pressure in his lungs and headache. Subjective HPI: Patient is a 53 year old male patient of Dr. Del Valle with a history of AML that was diagnosed in 2008. He is status post an allogeneic transplant with busulfan and Cytoxan on the AMD allogeneic study with his sister, 08/27 match; with day 0 on 11/09/2009. The patient was hospitalized in June for pneumonia. 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 He also has COPD and has had multiple dental extractions. He comes to the [facility] today with c/o a 1 week history of persistent cough and feeling of pressure in his lungs and a headache. States his cough is productive of thick yellow phlegm when he inhales deeply, and he feels croupy . He rates his headache at 9/10 at its worse, and about a 6/10 at this time. He reports a more than 1week history of nausea which he associates with his headaches at times, but also develops nausea when he tries to cook or eat. States his appetite is very poor.nausea which he associates with the Hisheadache is usually frontal, but he feels it in the back of his neck at times.. States he developedreally loud tinnitus over the past week as well. He states he has had intermittent low grade temp of 99.8, and a one time temp of 100.0 over the past week. States he is diabetic and has not been taking his insulin because he ran out and has not picked up his refill. States 2 days ago he went to [facility] and was treated with steroids and albuterol which did not help him at all. States he had very little sleep last night from coughing a lot. Upon arrival to the [facility] his temp was 98.1. Cancer Staging No matching staging information was found for the patient. No history exists. Active Treatment & Therapy Plans for Brady Jones does not have any active [...] 01/28/2013 Allergies Allergen Reactions ??? Adhesive Redness No current facility-administered medications for this encounter. Family History Problem Relation Age of Onset ??? Heart disease Mother Family history of cardiac disorder - (Added by TW Conv) Social History Substance Use Topics ??? Smoking status: Current Every Day Smoker ??? Smokeless tobacco: Never Used Comment: Pt not interested in smoking cessation program ??? Alcohol use Not on file Review of Systems: Constitutional: Thin, tired-appearing male, resting in his recliner and does not appear to be in acute distress. HENNT: No congestion, Respiratory: Cough. Cardiovascular: No chest pain or palpitations. LE swelling. Gastrointestinal: Nausea, no vomiting, no diarrhea or constipation. Genitourinary: No urinary symptoms. Musculoskeletal: Negative for arthralgias. Skin: Warm/dry and intact. Neurological: Headaches, Tinnitus. Objective Vitals BP 117/78 (BP Location: Left arm, Patient Position: Sitting) Pulse 79 Temp 37.4 ??C (99.3 ??F) (Oral) Resp 18 Ht 177.8 cm (5' 10 ) Wt 62.1 kg (137 lb) SpO2 94% BMI 19.66 kg/m?? Performance Status: ECO. Physical Exam: Constitutional: Thin, chronically ill-appearing gentleman, resting in his recliner and does not appear to be in acute distress. He is sleepy but rouses easily. HEENT: Head: Normocephalic. Mouth/Throat: Oral mucosa is dry and intact. Oropharynx is clear and dry. Eyes: MAGALI, EOMI, Anicteric. Neck: supple, no cervical adenopathy palpated Cardiovascular: Heart rate and rhythm regular. Bilateral moderately pitting ankle and pedal edema noted. Pulmonary/Chest: Lungs coarse bilaterally, productive cough of yellow phlegm noted. Abdominal: Soft, non-tender, non-distended, hypoactive bowel sounds throughout. Musculoskeletal: no pain or tenderness elicited on exam.. Neurological: He is alert and oriented to person, place, and time. [place]. Skin: Dry and intact.No cuts or bruises noted. Bruising in right AC space from recent IV stick. Labs: Admission on 11/22/2018 Component Date Value ??? WBC 11/22/2018 13.5* ??? Hgb 11/22/2018 17.1 ??? Hct 11/22/2018 48.3 ??? Plt 11/22/2018 151 ??? MPV 11/22/2018 11.6 ??? RBC 11/22/2018 4.67 ??? MCV 11/22/2018 103.4* ??? MCH 11/22/2018 36.6* ??? MCHC 11/22/2018 35.4 ??? RDW CV 11/22/2018 13.3 ??? RDW SD 11/22/2018 50.8* ??? NRBC Abs 11/22/2018 0.00 ??? Sodium 11/22/2018 132* ??? Potassium, pl 11/22/2018 4.3 ??? Chloride 11/22/2018 93* ??? CO2 11/22/2018 29 ??? Anion Gap 11/22/2018 10 ??? BUN 11/22/2018 13 ??? Creatinine 11/22/2018 0.92 ??? Glucose 11/22/2018 438* ??? Calcium 11/22/2018 9.2 ??? Bilirubin, total 11/22/2018 0.8 ??? Protein, pl 11/22/2018 6.5 ??? Albumin 11/22/2018 3.5 ??? Alk phos 11/22/2018 76 ??? ALT 11/22/2018 28 ??? AST 11/22/2018 18 ??? Magnesium 11/22/2018 1.4 ??? Phosphorus, pl 11/22/2018 1.6* ??? Lactate 11/22/2018 3.8* ??? Report 11/22/2018 Value:Final Report: Respiratory Pathogen nucleic acids NOT DETECTED (NEGATIVE) ??? ABO Rh 11/22/2018 A Positive ??? Ursula, indirect 11/22/2018 Negative ??? Neutrophil absolute 11/22/2018 9.0* ??? Immature granulocyte abs* 11/22/2018 0.1 ??? Lymphocytes absolute 11/22/2018 3.2 ??? Monocyte absolute 11/22/2018 1.1* ??? Eosinophils absolute 11/22/2018 0.0 ??? Basophils, abs 11/22/2018 0.0 ??? Neutrophils 11/22/2018 66.3 ??? Immature granulocytes 11/22/2018 1.0 ??? Lymphocytes 11/22/2018 24.0 ??? Monocytes 11/22/2018 8.2 ??? Eosinophils 11/22/2018 0.3 ??? Basophils 11/22/2018 0.2 ??? Glucose, POC, bld 11/22/2018 457* ??? Glucose comment 1 11/22/2018 Glu2: ??? Glucose, POC, bld 11/22/2018 319* Radiology: CT head: EXAMINATION: Head CT with contrast HISTORY: Headache. TECHNIQUE: CT of the brain was performed with images acquired from skull base to vertex after the uneventful administration of intravenous contrast. Contrast information: 100 mL Optiray-350 COMPARISON: None available. FINDINGS: Topogram demonstrates no lytic lesions or fractures. There is no acute intracranial hemorrhage. Ventricles are of normal size and morphology. No mass effect or midline shift is present. The gupta-white matter differentiation is normal. The visualized portions of the orbits are normal. The visualized portions of the mastoids are normal. There is mucosal thickening of the maxillary and sphenoid sinuses without evidence of extrasinus extension. No fractures are identified. There are no areas of abnormal contrast enhancement. The dural venous sinuses are patent. Impression 1. No acute intracranial abnormality. 2. Inflammatory sinusitis. CT Chest: EXAMINATION: ??Computed tomography of the chest with intravenous contrast HISTORY: Cough, shortness of breath TECHNIQUE: ??Transaxial computed tomographic images of the chest were obtained with intravenous contrast according to the PE protocol after the uneventful administration of 100 mL Opti-Ray 350 intravenous contrast. COMPARISON: 12/09/2017 FINDINGS: ?? No intraluminal filling defects are noted within the pulmonary arteries. Main pulmonary artery measures 2.6 cm and is within normal limits. The lungs demonstrate diffuse emphysematous changes. The previously noted right lower lobe consolidation has resolved. The previously seen right-sided pleural effusion has also resolved. No suspicious pulmonary nodules are seen. Atelectasis of the right middle lobe is noted and unchanged. Scarring of the right lung apex is present. The heart is of normal size without pericardial effusion. No mediastinal or hilar lymphadenopathy is noted. No supraclavicular or axillary lymphadenopathy. Osseous structures are without lytic or blastic lesions. Mild gynecomastia is seen bilaterally. The included upper abdomen demonstrates improved peripancreatic stranding when compared to prior examination. A small round a residual stranding is seen along the superior aspect of the pancreatic body. Impression 1. No evidence of pulmonary embolism. 2. Resolved right lower lobe consolidation and right-sided pleural effusion. 3. Improved peripancreatic fat stranding with a small amount of residual fat stranding seen along the superior margin of the pancreatic body compatible with improving pancreatitis. Recommend correlation with lipase levels. 4. Emphysema. Assessment/Plan Cough: Assessment & Plan CT with PE protocol obtained with result as noted above. Headache: Assessment & Plan Head CT obtained, with result as noted above. Nausea: Assessment & Plan zofran 8 mg IV given with relief. Tachycardia: Assessment & Likely from dehydration.NS infusing as noted below. Will monitor. HR improved to 70s after 1 liter NS. Dehydration Assessment & Plan NS infusing as noted above. NS 1st liter infusing over 2 hours. 2nd liter infusing at 250/hour. Hypophosphatemia: Assessment & Plan K-phos tabs ii tabs given. Hyperglycemia: Assessment & Plan Fingerstick BS is 457. Venous glucose is 438 Patient is on humalog insulin and states he takes 1 unit for every 25 pionts greater than 150. 12 units of humalog given. Leukocytosis: Assessment & Plan WBC of 13.5 noted. Was 13.9 on 10/27/18 and 8.9 back in July 2018. Likely from his emphysema excercabation, and c/o low grade temp. Febrile work-up completed and cultures are pending. Empiric antibiotics; cefepime1 gram and vancomycin [address] showing sinusitis. Hyponatremia: Assessment & Plan Na of 132 noted. NS infusing. Will monitor. Elevated Lactate: Assessment & Plan Lactate of 3.8 noted. Will repeat after liter of fluid infused. PLAN: Given his persistent cough with concern for GVHD of the lungs, and sinusitis as reported on his radiology exam, with headaches, I discussed this patient with the conservation planner fellow and the plan is that the be admitted for further work-up. Patient is agreeable to the plan. Report given to hospitalist. Patient transferred to [facility] in a stable condition. Louise Resendiz NP 11/22/18 S AND MERCHANDISING REPRESENTATIVE documented in this encounter Consult Notes * Stefany Coleman, RD - 11/24/2018 4:59 PM CSTAssociated Order(s): IP CONSULT TO NUTRITION SERVICES Nutrition Assessment Reason for Assessment: Consult/Referral Encounter Date: 11/24/18 4:59 PM Patient is a 53 y.o. male with chief complaint of low grade fevers, cough and sinus pressure. LOS is 2 days. HPI: Pt with hx of AML in remission who presented from the [facility] with malaise, low grade fevers cough and sinus pressure. PMH: AML s/p MUD transplant in 2008 in remission Chronic GvHD of eyes and likely lungs COPD Diabetes Diabetic neuropathy DVT Objective Past Medical History: Diagnosis Date ??? [...] [place] TUBE PLACEMENT N/A 01/28/2013 Social History Substance Use Topics ??? Smoking status: Current Every Day Smoker ??? Smokeless tobacco: Never Used Comment: Pt not interested in smoking cessation program ??? Alcohol use Not on file Family History Problem Relation Age of Onset ??? Heart disease Mother Family history of cardiac disorder - (Added by TW Conv) Anthropometrics: Wt Readings from Last 3 Encounters: 11/23/18 66.7 kg (147 lb) 10/27/18 70 kg (154 lb 6.4 oz) 08/01/18 62.3 kg (137 lb 4.8 oz) Anthropometrics Weight: 66.7 kg (147 lb) Admission Weight : 66.7 kg Weight Change: 0.00 kg (0.00 lbs) IBW/kg (Calculated) : 76.6 kg Height: 179 cm (5' 10.47 ) Weight in (lb) to have BMI = 25: 176.2 BMI (Calculated): 20.8 Nutrition Needs Calculations: Calculated Energy Needs Using Equations Weight: 66.7 kg (147 lb) Height: 179 cm (5' 10.47 ) Temp: 37 ??C (98.6 ??F) Estimated Protein Needs Type of Weight Used for Estimated Protein : Current Protein Needs Based on g/k.2 Total Protein Estimated Needs (gm): 80.01 Kcal/kg Type of Weight Used for Estimated Kcals: Current Kcal/k Total Kcal/kg Estimated Needs : 1666.98 Vital Signs: BP: 134/91 Temp: 37 ??C (98.6 ??F) Pulse: 97 Resp: 20 SpO2: 93 % Medications: Scheduled Meds: acyclovir 400 mg oral Q8H albuterol 2.5 mg nebulization QID (RT) atorvastatin 40 mg oral Daily ergocalciferol 50,000 Units oral Weekly fludrocortisone 0.1 mg oral BID fluticasone-salmeterol 1 puff inhalation BID insulin glargine 0.2 Units/kg subcutaneous QAM insulin lispro 1-4 Units subcutaneous Nightly insulin lispro 1-7 Units subcutaneous TID with meals insulin lispro 5 Units subcutaneous TID with meals [START ON 11/25/2018] levoFLOXacin 750 mg oral Daily - 0600 mycophenolate mofetil 1,000 mg oral BID nicotine 1 patch transdermal Daily ofloxacin 1 drop each eye QID predniSONE 10 mg oral BID rivaroxaban 20 mg oral Daily with dinner sodium chloride 0.9 % 30 mL swish & spit QID sodium chloride 0.9% 0.5-20 mL intra-catheter Q8H [facility] sodium chloride-sodium bicarbonate 1 packet each nostril Daily sulfamethoxazole-trimethoprim 320 mg of trimethoprim oral 2 times per day on Sat [START ON 11/25/2018] tacrolimus 0.5 mg oral Every other day Continuous Infusions: sodium chloride 0.9% 30 mL/hr sodium chloride 0.9% 30 mL/hr PRN Meds: ??? acetaminophen ??? acetaminophen ? ? aluminum & magnesium nosdljcxn-gsqbiofnmdl-myvvfhzvtddnvmj-lidocaine (MAGIC MOUTHWASH) suspension 1-1-1 ??? bacitracin-polymyxin B ??? camphor-menthol ??? dextrose OR dextrose OR dextrose ??? dextrose OR dextrose OR dextrose ??? gabapentin ??? glucagon ??? glucagon ??? loperamide ??? magnesium sulfate ??? magnesium sulfate ??? lubricant ??? potassium chloride ??? potassium chloride ER ??? pramoxine ??? sodium chloride ??? sodium chloride 0.9% ??? sodium chloride 0.9% ??? sodium chloride 0.9% ??? white petrolatum-mineral oil Lab Review: Sodium Date Value Ref Range Status 11/24/2018 135 135 - 145 mmol/L Final Potassium, pl Date Value Ref Range Status 11/24/2018 4.4 3.3 - 4.9 mmol/L Final BUN Date Value Ref Range Status 11/24/2018 16 8 - 25 mg/dL Final Creatinine Date Value Ref Range Status 11/24/2018 0.81 0.80 - 1.30 mg/dL Final Phosphorus, pl Date Value Ref Range Status 11/24/2018 3.1 2.3 - 4.5 mg/dL Final Albumin Date Value Ref Range Status 11/24/2018 3.6 3.5 - 5.0 g/dL Final Magnesium Date Value Ref Range Status 11/24/2018 1.5 1.4 - 2.5 mg/dL Final Calcium Date Value Ref Range Status 11/24/2018 8.8 8.5 - 10.3 mg/dL Final ALT Date Value Ref Range Status 11/24/2018 29 7 - 55 Units/L Final AST Date Value Ref Range Status 11/24/2018 25 10 - 50 Units/L Final Alk phos Date Value Ref Range Status 11/24/2018 73 40 - 130 Units/L Final Lab Results Component Value Date HGBA1C 14.2 (H) 11/23/2018 Nursing Assessment: Intake/Output Summary (Last 24 hours) at 11/24/18 1659 Last data filed at 11/24/18 1416 Gross per 24 hour Intake 2355 ml Output 650 ml Net 1705 ml Gastrointestinal Gastrointestinal (WDL): Within Defined Limits Last BM Date: 11/23/18 (per patient ) Last BM Date: 11/23/18 (per patient ) Rolf Scale Score: 22 Skin Integrity: Tear Oral Mucosa Grade: Painless ulcers, erythema or mild soreness no lesions (I) Dietary Orders Start Ordered 11/22/18 1526 Adult Diet Regular Diet effective now Comments: Neutropenic Diet. No RAW or undercooked meat, fish, poultry, or eggs. Question: ([facility]) Diet type Answer: Regular 11/22/18 1532 Nutrition Screen What diet do you follow at home?: regular Have You Recently Lost Weight Without Trying?: No Poor Oral Intake for Four or More Days Prior to Admission: Yes (Comment) Impression: Pt reports feeling much better today and he ate a good dinner and breakfast this morning. Pt reports that since the holidays he began experiencing nausea and loss of appetite. He denied any recent change in weight. Pt is missing his teeth, reports choosing softer foods but he had baked chicken today without issue. Pt with elevated BG and noted A1c on 11/23/18 14.2. Pt stated that he is familiar with diabetic diet and was following it closely, however mentioned feeling depressed lately and stoppedchecking his BG and following diet. Pt states that he is familiar with carbohydrate counting and declined the need for review on information. Noted psychiatry consult and consumer educator consult. Wt Readings from Last 3 Encounters: 11/23/18 66.7 kg (147 lb) 10/27/18 70 kg (154 lb 6.4 oz) 08/01/18 62.3 kg (137 lb 4.8 oz) NUTRITION DIAGNOSIS Nutrition Diagnosis 1: Altered nutrition-related laboratory values Related to: Lack of interest Evidenced by: Patient interview (elevated A1c) INTERVENTION Encouraged PO intakes to tolerance and compliance with diabetic diet for BG control. Recommended protein sources with meals/snacks and limiting simple sugar intake. Pt stated no nutritional needs at this time and did not wish to review diabetic diet information. RD to follow. 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 Psychiatry was consulted regarding depressive mood. We recommended that the team contact [facility]ing [facility] as patient will benefit from counseling. If they needed any help with psychopharmacology, we will be happy to help. They were told to call us with any questions. Team agreed with plan. Cosigned by Jose Enrique Antonio MD at 11/25/2018 5:04 PM SALES AND MERCHANDISING REPRESENTATIVE S AND MERCHANDISING REPRESENTATIVE S AND MERCHANDISING REPRESENTATIVE * Micky Grace MD - 11/23/2018 3:19 PM CSTAssociated Order(s): IP CONSULT TO ENT Otolaryngology - Head & Neck Surgery Consult Attending Physician: Milagros Reason for Consult: Maxillary sinus thickening seen on CT Requesting Team: BMT Requesting Provider: Jessica Casey Brady Jones is a 53 y.o. male with a history of AML status post stem cell transplant in 2008 complicated by jopfo-edtnam-qlna disease. He is admitted for treatment of pneumonia. There is also a concern for sinusitis on admission, and ENT is consulted for this. As far as sinusitis symptoms are concerned, the patient denies purulent drainage. He does have clear occasional rhinorrhea that drips out the front of his nose, less so out the back. He has not had any fevers. He denies significant congestion. His T-max over the past week is 100 F. He denies anosmia. He had some facial pain, but he says this occurred weeks ago. He occasionally coughs up thick sputum, but he says he has had this cough for a very long time given his GVHD of the lungs. He has a history of cataracts and corneal abrasions. He says he has had occasional stable diplopia for many years. This is not changed at all in recent weeks or days. When asked what his major bothersome symptom is, he states that it is tinnitus. He has had tinnitusfor a while, and it has worsened recently around . He describes a constant ringing noise. It is bilateral. He has not had a hearing test in a while. He does state that he is asking peopleto repeat themselves more frequently recently than he used to. But he does not describe a sudden drop in his hearing. He has a history of bilateral cerumen impaction. This has required cleanings in the office. He occasionally uses sweet oil at home to help with this. Past Medical History: Diagnosis Date ??? Personal [...] Vision changes - (Added by TW Conv) Patient Active Problem List Diagnosis ??? Osteopenia ??? Gwuif-jwfhzx-ngag disease (CMS/HCC) ??? H/O allogeneic bone marrow transplant (CMS/HCC) ??? 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) ??? Type 2 diabetes mellitus (CMS/HCC) ??? Pure hypercholesterolemia ??? Vitamin D deficiency ??? Cough ??? Sinusitis ??? COPD, severe (CMS/HCC) ??? DVT (deep venous thrombosis) (CMS/HCC) Past Surgical History: Procedure Laterality Date ??? 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 FILTER N/A 07/16/2013 ??? 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 FILTER N/A 02/05/2013 ??? NJ TUBE PLACEMENT N/A 02/04/2013 ??? NJ TUBE PLACEMENT N/A 02/04/2013 ??? NJ TUBE PLACEMENT N/A 01/28/2013 ??? NJ TUBE PLACEMENT N/A 01/28/2013 Social History Substance Use Topics ??? Smoking status: Current Every Day Smoker ??? Smokeless tobacco: Never Used Comment: Pt not interested in smoking cessation program ??? Alcohol use Not on file Family History Problem Relation Age of Onset ??? Heart disease Mother Family history of cardiac disorder - (Added by TW Conv) Allergies Allergen Reactions ??? Adhesive Redness Prescriptions Prior to Admission Medication Sig Dispense Refill Last Dose ??? acyclovir (ZOVIRAX) 400 mg tablet TAKE ONE TABLET BY MOUTH EVERY 8 HOURS 270 tablet 1 11/21/2018 at Unknown time ??? ADVAIR DISKUS 100-50 mcg/dose diskus inhaler INHALE 1 DOSE BY MOUTH TWICE DAILY 60 each 3 11/21/2018 at Unknown time ??? atorvastatin (LIPITOR) 40 mg tablet Take 1 tablet (40 mg total) by mouth daily. 11/21/2018 at Unknown time ??? ergocalciferol (VITAMIN D) 50,000 unit capsule Take 1 capsule (50,000 Units total) by mouth once a week. 4 capsule 3 Past Week at Unknown time ??? fludrocortisone 0.1 mg tablet Take 1 tablet (0.1 mg total) by mouth 2 (two) times a day. 60 tablet 2 11/21/2018 at Unknown time ??? gabapentin (NEURONTIN) 100 mg capsule Take 1 capsule by mouth as needed. Past Month at Unknown time ??? gabapentin (NEURONTIN) 300 mg capsule Take 300 mg by mouth as needed. 11/21/2018 at Unknown time ??? glucagon (glucagon) 1 mg kit USE DIRECTED AT SCHOOL AND HOME More than a month at Unknown time ??? HUMALOG KWIKPEN INSULIN 100 unit/mL insulin pen Past Week at Unknown time ??? metFORMIN XR (GLUCOPHAGE XR) 500 mg 24 hr tablet Take 1 tablet by mouth 2 (two) times a day. 11/21/2018 at Unknown time ??? mycophenolate mofetil (CELLCEPT) 500 mg tablet Take 2 tablets (1,000 mg total) by mouth 2 (two)times a day. 11/21/2018 at Unknown time ??? nicotine (NICODERM CQ) [address] on the skin. Past Month at Unknown time ??? ofloxacin (OCUFLOX) 0.3 % ophthalmic solution Administer 1 drop into both eyes 4 (four) times aday. 5 mL 11 11/22/2018 at Unknown time ??? predniSONE (DELTASONE) 10 mg tablet Take 2 tablets (20 mg total) by mouth daily. 120 tablet 3 11/21/2018 at Unknown time ??? sulfamethoxazole-trimethoprim (BACTRIM,SEPTRA) 800-160 mg per tablet Take 1 tablet by mouth 2 (two) times a day. On Saturday/ 16 tablet 6 Past Week at Unknown time ??? tacrolimus (PROGRAF) 0.5 mg capsule Take 1 capsule (0.5 mg total) by mouth daily. 60 capsule 6 11/21/2018 at Unknown time ??? VENTOLIN HFA 90 mcg/actuation inhaler INHALE 1 TO 2 PUFFS BY MOUTH EVERY 4 HOURS NEEDED FOR SHORTNESS OF BREATH 1 Inhaler 2 11/21/2018 at Unknown time ??? XARELTO 20 mg tablet TAKE 1 TABLET BY MOUTH ONCE DAILY WITH FOOD 30 tablet 2 11/21/2018 at Unknown time Review of Systems: GENERAL: Denies fevers, chills, fatigue, malaise. SKIN: Denies rashes, sores. HEAD: Denies trauma. EYES: Denies vision change, worsening diplopia. RESPIRATORY: Denies hemoptysis. CARDIAC: Denies chest pain, palpitations, dyspnea, orthopnea. GASTROINTESTINAL: Denies nausea, vomiting, diarrhea, bloody stool. MUSCULOSKELETAL: Denies arthralgia, myalgia. NEUROLOGIC: Denies headache, fainting, seizures, numbness, weakness, difficulty ambulating. HEMATOLOGIC: Denies easy bruising or bleeding. PSYCH: Denies depression, anxiety. Objective Physical Exam: Vitals: 11/23/18 0402 11/23/18 0800 11/23/18 1153 11/23/18 1230 BP: 121/66 122/72 BP Location: Left arm Patient Position: Lying Pulse: 53 94 94 96 Resp: 18 18 20 20 Temp: 36.4 ??C (97.5 ??F) 36.9 ??C (98.4 ??F) 36.6 ??C (97.9 ??F) TempSrc: Oral SpO2: 97% 98% 94% 95% Weight: Height: General: Awake, NAD Head: NC, AT Eyes: Sclera white, no injection or chemosis, no periorbital edema, EOMI BL Ears: Bilateral cerumen impactions Nose: No nasal bleeding, no flaring, see exam below Mouth: No OC/OP bleeding, tolerating secretions, MMM Neck: Soft and flat CV: RRR Pulm: NLB, no stridor, no stertor Skin: WWP Neuro: OE, R, FC; AOx3; CN intact; MAEWx4 Lab/Radiology/Diagnostic Review: Laboratory review: Lab results in the last 12 hours: Recent Results (from the past 12 hour(s)) Magnesium Collection Time: 11/23/18 4:43 AM Result Value Ref Range Magnesium 1.5 1.4 - 2.5 mg/dL Phosphorus Collection Time: 11/23/18 4:43 AM Result Value Ref Range Phosphorus, pl 3.4 2.3 - 4.5 mg/dL Tacrolimus level trough Collection Time: 11/23/18 4:43 AM Result Value Ref Range Tacrolimus, trough <1.0 ng/mL CBC without differential Collection Time: 11/23/18 4:43 AM Result Value Ref Range WBC 10.2 (H) 3.8 - 9.9 K/cumm Hgb 15.5 13.0 - 17.5 g/dL Hct 45.4 38.9 - 50.3 % Plt 152 150 - 400 K/cumm MPV 11.2 9.1 - 12.3 fL RBC 4.35 4.30 - 5.80 M/cumm MCV 104.4 (H) 81.3 - 96.4 fL MCH 35.6 (H) 27.1 - 33.3 pg MCHC 34.1 32.3 - 35.7 g/dL RDW CV 13.6 11.1 - 14.9 % RDW SD 52.7 (H) 35.7 - 48.1 fL NRBC Abs 0.00 0.00 - 0.01 K/cumm Manual Differential Collection Time: 11/23/18 4:43 AM Result Value Ref Range Differential Manual Cells Counted 115 Neutrophil absolute 8.4 (H) 1.7 - 6.5 K/cumm Immature granulocyte absolute 0.1 0.0 - 0.1 K/cumm Lymphocytes absolute 1.2 0.8 - 3.3 K/cumm Monocyte absolute 0.4 0.2 - 0.8 K/cumm Neutrophils 82.6 % Lymphocytes 7.8 % Monocytes 4.4 % Myelocytes 0.9 % Variant lymphs 4.3 (H) 0.0 - 0.0 % RBC morphology Present (A) Anisocytosis Slight (A) Poikilocytosis Marked (A) Macrocytes 3-7/HPF (A) Target cells 3-7/HPF (A) Platelet estimate Adequate Basic metabolic panel Collection Time: 11/23/18 4:43 AM Result Value Ref Range Sodium 137 135 - 145 mmol/L Potassium, pl 4.8 3.3 - 4.9 mmol/L Chloride 99 97 - 110 mmol/L CO2 31 22 - 32 mmol/L Anion Gap 7 2 - 15 mmol/L BUN 11 8 - 25 mg/dL Creatinine 0.85 0.80 - 1.30 mg/dL Glucose 223 (H) 70 - 199 mg/dL Calcium 8.7 8.5 - 10.3 mg/dL Hemoglobin A1c Collection Time: 11/23/18 4:43 AM Result Value Ref Range Hgb A1C 14.2 (H) 4.0 - 5.6 % Estimated Average Glucose 361 mg/dL POCT glucose Collection Time: 11/23/18 9:15 AM Result Value Ref Range Glucose, POC, bld 333 (H) 70 - 199 mg/dL POCT glucose Collection Time: 11/23/18 12:38 PM Result Value Ref Range Glucose, POC, bld 151 70 - 199 mg/dL Procedures performed: Nasal Endoscopy: Due to inadequate visualization on anterior rhinoscopy, rigid nasal endoscopy was undertaken. Verbal informed consent was obtained after discussing the need for the endoscopy. Topical nasal decongestant and anesthetic was not used. The rigid nasal endoscope was introduced into the right and left nasal cavity. ?? Nasal mucosa: pink, healthy appearing Mucus: thin, clear. No purulence was seen coming from either ostiomeatal complex. Masses or polyps: None Inferior turbinates: Normal appearing. Sensate Middle turbinates: Normal appearing. Sensate Nasal septum: Normal appearing. There is a small left-sided septal spur. Mucosa is sensate bilaterally. No areas of necrosis are seen in the nose. The endoscope was removed and the patient tolerated the procedure well. Head CT w/ contrast 11/22/18 IMPRESSION: 1. No acute intracranial abnormality. 2. Inflammatory sinusitis. ?? My read: There is mucosal thickening of the bilateral maxillary sinuses right greater than left. There is mucosal thickening and/or fluid dense material in the bilateral sphenoid sinuses. Assessment/Plan 53 y.o. male with: 1. Radiographic evidence of sinus disease, without current signs or symptoms of acute sinusitis. -patient may benefit from b.i.d. Nasal saline irrigations (Neti pot / NeilMed sinus rinses). He is open to the idea of starting this. -although he does have risk factors, there is no evidence of acute invasive fungal sinusitis on exam today. -the patient may follow up in General ENT Clinic to discuss this further. 2. Bilateral cerumen impactions -the patient should follow up in General ENT Clinic for cerumen disimpaction 3. Tinnitus -the patient is tinnitus is bilateral and nonpulsatile. He may follow up in General ENT clinic withan audiogram to look for hearing loss, which is the most common cause of tinnitus. If cerumen disimpaction is a factor in his hearing loss, disimpaction may also help with the tinnitus. ENT will sign off. I have discussed this case with my senior resident who agrees with the plan. Thank you for the interesting consult. Please call if you have further questions or concerns. Micky Grace MD Otolaryngology - Head & Neck Surgery Cosigned by Mayuri Linares MD at 11/27/2018 2:24 PM SALES AND MERCHANDISING REPRESENTATIVE S AND MERCHANDISING REPRESENTATIVE S AND MERCHANDISING REPRESENTATIVE S AND MERCHANDISING REPRESENTATIVE documented in this encounter Nursing Notes * Sidra Vaughn RN - 11/25/2018 7:31 PM CST Pt discharged to home in stable condition. Pt was educated on discharge instructions, including newmedications and follow up appointments. Pt also demonstrated proper administration of SQ insulin injection on himself several times prior to discharge. Peripheral IV removed. Ensured pt left with all personal belongings. Pt ambulated off floor and transported home by friend. Prescriptions called into [facility] pharmacy per pt's request. S AND MERCHANDISING REPRESENTATIVE * Bela Valdivia RN - 11/25/2018 1:51 PM CST 11/25/18 1336 Pre-Education Assessment Time In 0940 Time Out 1045 Units of Service 4 Visit Type Initial Introduction ID verified;Alert/ oriented x 4;Education provided with patient approval;Patient present for education;Patient present and able to participate (pt to be d/c today on meal time insulin mid dose slide and metformin, Pt has been on these meds inthe past. Reviewed what at sliding scale was and pt was able to accomplish this, pt is aware he needs test strips for his meter and just has to pick the) Provider Client Services Analyst (Discussed a1c of 14 and that he needs to call his enod dr Trevino if sugars are in 200's or higher appt with her on dec 16, says he can communicate with her thru the portal We set up an appt with the dm educ Robyn for Dec 03 10 am, he last visit 2013 ) Treatment Prior To Admission (Discsussed with the MEDICAL SERVICE TECHNICIAN John about dm regimen prior to going into room .) Knowledge Base Intermediate Hemaglobin A1c Knows value Home Testing (was not real compliant with meds and with checking sugars. lost his 1 yrs ago he mentioned this several times, is living with someone at this time. He does understand the affects of poorly controlled blood sugars on his body, pt on prednisone.) Hypoglycemia Hardly ever ( 3 yrs ago Pt is aware how to treat a low blood sugar and to prevent No recent wt loss he states.) Home Supplies Yes needs assistance Inpatient Recommendations RN to practice with patient Injections (RN says he did fine with the injection, reviewed the insulin pen with the pt and he knows how to use it correctly. encouraagedhim to keep log sheet onsugars and insulin doses and take to md appts) RN to reinforce with patient Insulin injection site rotation;Insulin dose calculation;Consistent carb diet Patient/Designated Caregiver to Continue with Diabetes Education (specify date/time in comments) Discharge Recommendations Insulin Pen (novolog or humalog, pens out of this insulin at home ) Pen [place] Ultra fine 4 mm Glucometer OneTouch Verio Meter Test Strips One Touch Verio test strips Lancets Delica lancets Blood Glucose Testing Regimen 4 times per day Diabetes/Education Follow Up Primary Care Provider;Client Services Analyst Pt says he can afford his strips and medications in past. More dm educ and support needed. S AND MERCHANDISING REPRESENTATIVE * Bela Valdivia RN - 11/24/2018 3:02 PM CST CDE spooke to ARMEN Nur, Pt will be d/c tomorrow and go home on novolog sliding scale (mid dose) with meals and metformin 1000 mg bid. Dietican she says already seen pt. Pt on steroids due to G raft vs Host. Pt has an endo and will be seen by a MD in one week to report blood sugars Pt has a meter MEDICAL SERVICE TECHNICIAN states. S AND MERCHANDISING REPRESENTATIVE * Bela Valdivia RN - 11/24/2018 9:40 AM CST CDE left message on ARMEN Sibley phone this am. Awaiting call back ([phone]), so questions can be answered. Pt has been placed on hold till provider calls back so an inpatient appt can be scheduled. If pt going april e on insulin therapy , christian need to practice insulin injections at scheduled insulin times and RN to document pt's performance. ( unless he was already on insulin prior to this hospitalziation and he voices he has no difficulties with this task) S AND MERCHANDISING REPRESENTATIVE * Dennis Crow RN - 11/22/2018 6:25 PM CST Patient admitted to [facility] at 1700. Two nurses teamed up to successfully complete a head-to-toe skin assessment. The findings of this resulted in the following: skin is C/D/I, no s/s breakdown. The appropriate goals and interventions have been implemented and documented. Cosigned by Estrella Gonzalez RN at 11/25/2018 3:44 PM SALES AND MERCHANDISING REPRESENTATIVE S AND MERCHANDISING REPRESENTATIVE S AND MERCHANDISING REPRESENTATIVE S AND MERCHANDISING REPRESENTATIVE * Nancy Jones RN - 11/22/2018 4:50 PM CST Pt with AML was seen by MEDICAL SERVICE TECHNICIAN in [facility] d/t cough and MARCOS. Pt denies fever. Pt is s/p allo with hx of GVH of lungs and COPD. Labs, blood cultures X 2, MEDICAL SERVICE TECHNICIAN swab, urine flex sent. Chest CTdone. BS checked; 12 U Lispro given for BS 457. Rechecked after 1 hour; BS 319. NS infused per order. Cefepime and Vancomycin infused per order. Pt admitted to hospital. See Neris Resendiz MEDICAL SERVICE TECHNICIAN note for additional information. Report given to Dennis CONNELL on 8800 Pt transferred to [id number] via wheelchair accompanied by transporter. S AND MERCHANDISING REPRESENTATIVE S AND MERCHANDISING REPRESENTATIVE S AND MERCHANDISING REPRESENTATIVE documented in this encounter Miscellaneous Notes * Plan of Care - Sidra Vaughn RN - 11/25/2018 8:45 AM CST Goals: Clinical Goals for the Shift: pt's blood sugar will remain WNL, vs WNL, and possibly discharged home later today Summary: Activity: ??? Mobility will improve Progressing Health Behavior: ??? Understanding of discharge needs will improve Progressing Health Behavior: ??? Ability to identify and alter actions that are detrimental to health will improve Progressing ??? Ability to identify and utilize available resources and services will improve Progressing ??? Ability to manage health-related needs will improve Progressing Lack of Knowledge: ??? Understanding of ways to prevent future skin breakdown will improve Progressing ??? Ability to identify appropriate dietary choices will improve Progressing Nutritional: ??? Dietary intake will improve Progressing ??? Ability to maintain a balanced intake and output will improve Progressing Physical Regulation: ??? Complications related to the disease process, condition or treatment will be avoided or minimized Progressing ??? Diagnostic test results will improve Progressing Skin Integrity: ??? Risk for impaired skin integrity will decrease Progressing ??? Ability to demonstrate warm and dry skin will improve Progressing ??? Circulation will improve to fullest extent possible Progressing S AND MERCHANDISING REPRESENTATIVE * Plan of Care - Dayron Armijo RRT - 11/25/2018 8:21 AM CST Pt tolerated albuterol well; pt sounded diminished; will continue to do tx QID S AND MERCHANDISING REPRESENTATIVE * Plan of Care - Nam Sandy RN - 11/24/2018 11:49 PM SALES AND MERCHANDISING REPRESENTATIVE Goals: Clinical Goals for the Shift: pt fremain free of falls, pt not not a hyperglycemic event, pt get adeqaute rest Summary: pt left the room most of the night after assessment. Pt returned to the room at 2330. Pt slept most of the night. Pt wanted gabapentin around 2029 d/t tingling in both feet. Pt vitals were normal and BG WAS 164. Pt received 7 units of insulin. S AND MERCHANDISING REPRESENTATIVE * Plan of Care - Ainsley Alvarenga RN - 11/24/2018 6:16 PM CST Activity: ??? Mobility will improve Progressing Health Behavior: ??? Understanding of discharge needs will improve Progressing Health Behavior: ??? Ability to identify and alter actions that are detrimental to health will improve Progressing ??? Ability to identify and utilize available resources and services will improve Progressing ??? Ability to manage health-related needs will improve Progressing Lack of Knowledge: ??? Understanding of ways to prevent future skin breakdown will improve Progressing ??? Ability to identify appropriate dietary choices will improve Progressing Nutritional: ??? Dietary intake will improve Progressing ??? Ability to maintain a balanced intake and output will improve Progressing Physical Regulation: ??? Complications related to the disease process, condition or treatment will be avoided or minimized Progressing ??? Diagnostic test results will improve Progressing Skin Integrity: ??? Risk for impaired skin integrity will decrease Progressing ??? Ability to demonstrate warm and dry skin will improve Progressing ??? Circulation will improve to fullest extent possible Progressing Goals: Clinical Goals for the Shift: Maintain stable vital signs, get adequate PO intake, ambulate as tolerated Summary: Plan of care reviewed with patient this AM, including ambulating as tolerated and maintaining adequate PO intake. Blood sugars will be monitored for control of hyperglycemia. Has remained stable since this AM. Patient is planned to discharge home tomorrow. Will continue to monitor. S AND MERCHANDISING REPRESENTATIVE * Plan of Care - Rogers Lagos RN - 11/24/2018 5:54 PM CST Unable to Complete Initial Assessment S AND MERCHANDISING REPRESENTATIVE * Assessment & Plan Note - Josefa Nur NP - 11/24/2018 4:55 PM SALES AND MERCHANDISING REPRESENTATIVE Associated Problem(s): Depressed mood With feelings of depressed mood prior to admission. Outpt team with concerns for pt's wellbeing as he was more noncompliant and down over the phone prior to admit. -Consulted [facility] counseling 11/24, will plan to see him on AM of 11/25 at 0900. -Also consulted psychiatry, but felt that counseling service was appropriate first step and would only see him if they recommended pharm therapy. S AND MERCHANDISING REPRESENTATIVE * Plan of Care - Dayron Armijo RRT - 11/24/2018 8:38 AM CST Pt tolerated albuterol and advair well; pt sounded diminished and not in distress; will changed 5mgto 2.5mg per respiratory protocol; pt was able to use inhaler self independently and technique was good; will chagned Advair to RN TO ADMINISTER per respiratory protocol S AND MERCHANDISING REPRESENTATIVE * Plan of Care - Cruz Gustafson RN - 11/23/2018 10:36 PM CST Goals: Clinical Goals for the Shift: manage BG, no SOA Summary: Activity: ??? Mobility will improve Progressing Health Behavior: ??? Understanding of discharge needs will improve Progressing Health Behavior: ??? Ability to identify and alter actions that are detrimental to health will improve Progressing ??? Ability to identify and utilize available resources and services will improve Progressing ??? Ability to manage health-related needs will improve Progressing Lack of Knowledge: ??? Understanding of ways to prevent future skin breakdown will improve Progressing ??? Ability to identify appropriate dietary choices will improve Progressing Nutritional: ??? Dietary intake will improve Progressing ??? Ability to maintain a balanced intake and output will improve Progressing Physical Regulation: ??? Complications related to the disease process, condition or treatment will be avoided or minimized Progressing ??? Diagnostic test results will improve Progressing Skin Integrity: ??? Risk for impaired skin integrity will decrease Progressing ??? Ability to demonstrate warm and dry skin will improve Progressing ??? Circulation will improve to fullest extent possible Progressing S AND MERCHANDISING REPRESENTATIVE * Assessment & Plan Note - Josefa Nur NP - 11/23/2018 11:32 AM SALES AND MERCHANDISING REPRESENTATIVE Associated Problem(s): DVT (deep venous thrombosis) (CMS/HCC) (HCC) Cont Xarelto. S AND MERCHANDISING REPRESENTATIVE * Assessment & Plan Note - Josefa Nur NP - 11/23/2018 11:30 AM SALES AND MERCHANDISING REPRESENTATIVE Associated Problem(s): Type 2 diabetes mellitus (HCC) -Poorly controlled, recently stopped checking glucose as [...] increased dose metformin, pen needles and sent e- script to [facility] in [place] on 11/24. Pt has script for glucose strips waiting there as well. S AND MERCHANDISING REPRESENTATIVE S AND MERCHANDISING REPRESENTATIVE S AND MERCHANDISING REPRESENTATIVE S AND MERCHANDISING REPRESENTATIVE S AND MERCHANDISING REPRESENTATIVE S AND MERCHANDISING REPRESENTATIVE * Assessment & Plan Note - Josefa Nur NP - 11/23/2018 11:28 AM SALES AND MERCHANDISING REPRESENTATIVE Associated Problem(s): COPD with exacerbation (CMS/HCC) (HCC) Continues to smoke >1 ppd. -Cont steroids at current dose. -Cont Advair diskus BID, cont albuterol inh QID. -Encourage smoking cessation. Cont nicotine patch. S AND MERCHANDISING REPRESENTATIVE * Assessment & Plan Note - Josefa Nur NP - 11/23/2018 11:26 AM SALES AND MERCHANDISING REPRESENTATIVE Associated Problem(s): Sinusitis Chronic issue over last 2 months. -With [...] Head CT 11/22 shows no PE-->no pneumonia. 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 -Cont pred 10 mg BID, MMF 1g BID, tacrolimus 0.5 mg QOD. -F/u tac trough (due 18 AM). S AND MERCHANDISING REPRESENTATIVE S AND MERCHANDISING REPRESENTATIVE * Assessment & Plan Note - oJsefa Nur NP - 11/23/2018 11:23 AM SALES AND MERCHANDISING REPRESENTATIVE Associated Problem(s): AML s/p Allo SCT in 2008 -s/p sibling allo SCT on 11/09/09, now in CR with no e/o recurrence. 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 -Cont OI ppx with Bactrim, acyclovir. S AND MERCHANDISING REPRESENTATIVE * Plan of Care - Cruz Gustafson RN - 11/23/2018 3:38 AM CST Goals: Clinical Goals for the Shift: manage nausea, imporve po intake, stable vs Summary: Activity: ??? Mobility will improve Progressing Health Behavior: ??? Understanding of discharge needs will improve Progressing Health Behavior: ??? Ability to identify and alter actions that are detrimental to health will improve Progressing ??? Ability to identify and utilize available resources and services will improve Progressing ??? Ability to manage health-related needs will improve Progressing Lack of Knowledge: ??? Understanding of ways to prevent future skin breakdown will improve Progressing ??? Ability to identify appropriate dietary choices will improve Progressing Nutritional: ??? Dietary intake will improve Progressing ??? Ability to maintain a balanced intake and output will improve Progressing Physical Regulation: ??? Complications related to the disease process, condition or treatment will be avoided or minimized Progressing ??? Diagnostic test results will improve Progressing Skin Integrity: ??? Risk for impaired skin integrity will decrease Progressing ??? Ability to demonstrate warm and dry skin will improve Progressing ??? Circulation will improve to fullest extent possible Progressing S AND MERCHANDISING REPRESENTATIVE * Plan of Care - Hilda Peters RRT - 11/22/2018 8:33 PM CST Impression: Medical Conditions Diagnosis ??? Osteopenia ??? Mmlla-xbfsax-iwow disease (CMS/HCC) ??? H/O allogeneic bone marrow transplant (CMS/HCC) ??? 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) ??? Type 2 diabetes mellitus (CMS/HCC) ??? Pure hypercholesterolemia ??? Vitamin D deficiency ??? Cough ??? Sinusitis ??? COPD, severe (CMS/HCC) Plan: Administer albuterol as ordered; continue to monitor. S AND MERCHANDISING REPRESENTATIVE * Plan of Care - Dennis Crow RN - 11/22/2018 5:18 PM CST Activity: ??? Mobility will improve Not Progressing Health Behavior: ??? Understanding of discharge needs will improve Not Progressing Health Behavior: ??? Ability to identify and alter actions that are detrimental to health will improve Not Progressing ??? Ability to identify and utilize available resources and services will improve Not Progressing ??? Ability to manage health-related needs will improve Not Progressing Lack of Knowledge: ??? Understanding of ways to prevent future skin breakdown will improve Not Progressing ??? Ability to identify appropriate dietary choices will improve Not Progressing Nutritional: ??? Dietary intake will improve Not Progressing ??? Ability to maintain a balanced intake and output will improve Not Progressing Physical Regulation: ??? Complications related to the disease process, condition or treatment will be avoided or minimized Not Progressing ??? Diagnostic test results will improve Not Progressing Skin Integrity: ??? Risk for impaired skin integrity will decrease Not Progressing ??? Ability to demonstrate warm and dry skin will improve Not Progressing ??? Circulation will improve to fullest extent possible Not Progressing Goals: Clinical Goals for the Shift: manage nausea, imporve po intake, stable vs Summary: assumed care of pt at 1700. Pt in stable condition. Oriented to unit. Educated on nausea management. Educated on fall precautions. Will conitnue w/ plan of care. S AND MERCHANDISING REPRESENTATIVE documented in this encounter Plan of Treatment Scheduled Orders Name Type Priority Associated Diagnoses Orde r Schedule Urinalysis reflex to microscopic and culture Urine Microbiology STAT Lab orders - as needed, STAT collection for 1 Occurrences starting 11/22/2018 Clostridium difficile assay Stool Microbiology STAT Lab orders - as needed, STAT collection for 1 Occurrences starting 11/22/2018 documented as of this encounter Procedures Procedure Name Priority Date/Time Associated Diagnosis Comments POCT GLUCOSE DEVICE Routine Gen Lab 11/25/2018 5 :23 PM SALES AND MERCHANDISING REPRESENTATIVE POCT GLUCOSE DEVICE Routine Gen Lab 11/25/2018 1 2:27 PM SALES AND MERCHANDISING REPRESENTATIVE POCT GLUCOSE DEVICE Routine Gen Lab 11/25/2018 7 :17 AM SALES AND MERCHANDISING REPRESENTATIVE BMT CBC Routine 11/25/2018 5:36 AM SALES AND MERCHANDISING REPRESENTATIVE MANUAL DIFFERENTIAL Routine 11/25/2018 5 :36 AM SALES AND MERCHANDISING REPRESENTATIVE CBC WITHOUT DIFFERENTIAL Routine Gen Lab 11/25/2018 5:36 AM SALES AND MERCHANDISING REPRESENTATIVE PHOSPHORUS Routine 11/25/2018 5:36 AM SALES AND MERCHANDISING REPRESENTATIVE MAGNESIUM Routine 11/25/2018 5:36 AM SALES AND MERCHANDISING REPRESENTATIVE BASIC METABOLIC PANEL Routine 11/25/2018 5:36 AM SALES AND MERCHANDISING REPRESENTATIVE POCT GLUCOSE DEVICE Routine Gen Lab 11/24/2018 1 0:39 PM SALES AND MERCHANDISING REPRESENTATIVE POCT GLUCOSE DEVICE Routine Gen Lab 11/24/2018 7 :56 PM SALES AND MERCHANDISING REPRESENTATIVE POCT GLUCOSE DEVICE Routine Gen Lab 11/24/2018 1 2:46 PM SALES AND MERCHANDISING REPRESENTATIVE POCT GLUCOSE DEVICE Routine Gen Lab 11/24/2018 1 0:25 AM SALES AND MERCHANDISING REPRESENTATIVE POCT GLUCOSE DEVICE Routine Gen Lab 11/24/2018 7 :47 AM SALES AND MERCHANDISING REPRESENTATIVE BMT CBC Routine 11/24/2018 5:35 AM SALES AND MERCHANDISING REPRESENTATIVE CRITICAL RESULT CALLBACK CHEMISTRY Routine Gen Lab 11/24/2018 5:35 AM SALES AND MERCHANDISING REPRESENTATIVE MANUAL DIFFERENTIAL Routine 11/24/2018 5 :35 AM SALES AND MERCHANDISING REPRESENTATIVE APTT Routine 11/24/2018 5:35 AM SALES AND MERCHANDISING REPRESENTATIVE PROTIME-INR Routine 11/24/2018 5:35 AM SALES AND MERCHANDISING REPRESENTATIVE CBC WITHOUT DIFFERENTIAL Routine Gen Lab 11/24/2018 5:35 AM SALES AND MERCHANDISING REPRESENTATIVE TYPE AND SCREEN Timed 11/24/2018 5:35 AM SALES AND MERCHANDISING REPRESENTATIVE URIC ACID Routine 11/24/2018 5:35 AM SALES AND MERCHANDISING REPRESENTATIVE PHOSPHORUS Routine 11/24/2018 5:35 AM SALES AND MERCHANDISING REPRESENTATIVE MAGNESIUM Routine 11/24/2018 5:35 AM SALES AND MERCHANDISING REPRESENTATIVE LACTATE DEHYDROGENASE Routine 11/24/2018 5:35 AM SALES AND MERCHANDISING REPRESENTATIVE COMPREHENSIVE METABOLIC PANEL Routine 11/24/2018 5:35 AM SALES AND MERCHANDISING REPRESENTATIVE POCT GLUCOSE DEVICE Routine Gen Lab 11/23/2018 9 :33 PM SALES AND MERCHANDISING REPRESENTATIVE POCT GLUCOSE DEVICE Routine Gen Lab 11/23/2018 5 :37 PM SALES AND MERCHANDISING REPRESENTATIVE POCT GLUCOSE DEVICE Routine Gen Lab 11/23/2018 1 2:38 PM SALES AND MERCHANDISING REPRESENTATIVE POCT GLUCOSE DEVICE Routine Gen Lab 11/23/2018 9 :15 AM SALES AND MERCHANDISING REPRESENTATIVE BMT CBC Routine 11/23/2018 4:43 AM SALES AND MERCHANDISING REPRESENTATIVE TACROLIMUS LEVEL, TROUGH Routine 11/23/2018 4:43 AM SALES AND MERCHANDISING REPRESENTATIVE MANUAL DIFFERENTIAL Routine 11/23/2018 4 :43 AM SALES AND MERCHANDISING REPRESENTATIVE CBC WITHOUT DIFFERENTIAL Routine Gen Lab 11/23/2018 4:43 AM SALES AND MERCHANDISING REPRESENTATIVE PHOSPHORUS Routine 11/23/2018 4:43 AM SALES AND MERCHANDISING REPRESENTATIVE MAGNESIUM Routine 11/23/2018 4:43 AM SALES AND MERCHANDISING REPRESENTATIVE HEMOGLOBIN A1C Routine 11/23/2018 4:43 AM SALES AND MERCHANDISING REPRESENTATIVE BASIC METABOLIC PANEL Routine 11/23/2018 4:43 AM SALES AND MERCHANDISING REPRESENTATIVE POCT GLUCOSE DEVICE Routine Gen Lab 11/22/2018 9 :52 PM SALES AND MERCHANDISING REPRESENTATIVE ECG 12-LEAD Routine 11/22/2018 6:30 PM SALES AND MERCHANDISING REPRESENTATIVE POCT GLUCOSE DEVICE Routine Gen Lab 11/22/2018 5 :33 PM SALES AND MERCHANDISING REPRESENTATIVE POCT GLUCOSE DEVICE Routine Gen Lab 11/22/2018 2 :15 PM SALES AND MERCHANDISING REPRESENTATIVE CT CHEST PE W CONTRAST ED Urgent/IP Urgent 11/22/2018 1:50 PM SALES AND MERCHANDISING REPRESENTATIVE CT HEAD W CONTRAST ED Urgent/IP Urgent 11/22/2018 1:50 PM SALES AND MERCHANDISING REPRESENTATIVE POCT GLUCOSE DEVICE Routine Gen Lab 11/22/2018 1 2:35 PM SALES AND MERCHANDISING REPRESENTATIVE URINALYSIS AND REFLEX TO MICROSCOPIC AND CULTURE Routine 11/22/2018 11:21 AM SALES AND MERCHANDISING REPRESENTATIVE RESPIRATORY PATHOGEN PANEL Routine 11/22/2018 11:21 AM SALES AND MERCHANDISING REPRESENTATIVE LACTATE Routine 11/22/2018 11:20 AM SALES AND MERCHANDISING REPRESENTATIVE DIFFERENTIAL AUTO Routine Gen Lab 11/22/2018 11: 20 AM SALES AND MERCHANDISING REPRESENTATIVE CBC WITH AUTO DIFFERENTIAL Routine 11/22/2018 11:20 AM SALES AND MERCHANDISING REPRESENTATIVE BLOOD CULTURE Routine 11/22/2018 11:20 AM SALES AND MERCHANDISING REPRESENTATIVE BLOOD CULTURE Routine 11/22/2018 11:20 AM SALES AND MERCHANDISING REPRESENTATIVE TYPE AND SCREEN Timed 11/22/2018 11:20 AM SALES AND MERCHANDISING REPRESENTATIVE PHOSPHORUS STAT 11/22/2018 11:20 AM SALES AND MERCHANDISING REPRESENTATIVE MAGNESIUM STAT 11/22/2018 11:20 AM SALES AND MERCHANDISING REPRESENTATIVE HEMOGLOBIN A1C Routine 11/22/2018 11:20 AM SALES AND MERCHANDISING REPRESENTATIVE COMPREHENSIVE METABOLIC PANEL STAT 11/22/2018 11:20 AM SALES AND MERCHANDISING REPRESENTATIVE documented in this encounter Results * (ABNORMAL) POCT glucose (11/25/2018 5:23 PM SALES AND MERCHANDISING REPRESENTATIVE) Glucose, POC 255(H) 70 - 199 mg/dL [facility] Blood specimen (specimen) 11/25/2018 5:23 PM SALES AND MERCHANDISING REPRESENTATIVE 11/25/2018 5:23 PM SALES AND MERCHANDISING REPRESENTATIVE Narrative [facility] - 11/25/2018 5:37 PM SALES AND MERCHANDISING REPRESENTATIVE Josué Del Valle MD PhD LAB POCT ORDERABLES - DE VICE Final Result Performing Organization Address City/[facility]/ZIP Co de Phone Number [facility] [place] [address] * POCT glucose (11/25/2018 12:27 PM SALES AND MERCHANDISING REPRESENTATIVE) Glucose, POC 155 70 - 199 mg/dL [facility] Blood specimen (specimen) 11/25/2018 12:27 PM SALES AND MERCHANDISING REPRESENTATIVE 11/25/2018 12:27 PM SALES AND MERCHANDISING REPRESENTATIVE Narrative [facility] - 11/25/2018 12:38 PM SALES AND MERCHANDISING REPRESENTATIVE Josué Del Valle MD PhD LAB POCT ORDERABLES - DE VICE Final Result Performing Organization Address City/[facility]/ZIP Co de Phone Number [facility] [place] [address] * (ABNORMAL) POCT glucose (11/25/2018 7:17 AM SALES AND MERCHANDISING REPRESENTATIVE) Glucose, POC 324(H) 70 - 199 mg/dL [facility] Blood specimen (specimen) 11/25/2018 7:17 AM SALES AND MERCHANDISING REPRESENTATIVE 11/25/2018 7:17 AM SALES AND MERCHANDISING REPRESENTATIVE Narrative [facility] - 11/25/2018 7:28 AM SALES AND MERCHANDISING REPRESENTATIVE us Josué Del Valle MD PhD LAB POCT ORDERABLES - DE VICE Final Result [facility] Department [place] [address] * (ABNORMAL) Manual Differential (11/25/2018 5:36 AM SALES AND MERCHANDISING REPRESENTATIVE) [facility] Differential Manual [facility] Cells Counted 114 [facility] Neutrophil abs 13.3(H) 1.7 - 6.5 K/cumm [facility] Imm gran abs 0.0 0.0 - 0.1 K/cumm [facility] Lymphocyte abs 1.3 0.8 - 3.3 K/cumm [facility] Monocyte abs 1.4(H) 0.2 - 0.8 K/cumm [facility] Basophil abs 0.2(H) 0.0 - 0.1 K/cumm [facility] Neutrophil pct 82.4 % [facility] Comment: Interpretive Data Percent cell count reference ranges are not reported, since discordance with absolute values may lead to misinterpretation of CBC data. Current Interpretive Data was last revised on 2018. Lymphocyte pct 5.3 % [facility] Comment: Interpretive Data Percent cell count reference ranges are not reported, since discordance with absolute values may lead to misinterpretation of CBC data. Current Interpretive Data was last revised on 2018. Monocyte pct 8.8 % [facility] Comment: Interpretive Data Percent cell count reference ranges are not reported, since discordance with absolute values may lead to misinterpretation of CBC data. Current Interpretive Data was last revised on 2018. Basophil pct 0.9 % [facility] Comment: Interpretive Data Percent cell count reference ranges are not reported, since discordance with absolute values may lead to misinterpretation of CBC data. Current Interpretive Data was last revised on 2018. Variant lymph pct 2.6(H) 0.0 - 0.0 % [facility] RBC morphology Present(A) [facility] Anisocytosis Slight(A) [facility] Poikilocytosis Moderate(A) [facility] Macrocytes 3-7/HPF(A) [facility] Platelet estimate Adequate [facility] Blood specimen (specimen) 11/25/2018 5:36 AM SALES AND MERCHANDISING REPRESENTATIVE 11/25/2018 6:17 AM SALES AND MERCHANDISING REPRESENTATIVE Narrative [facility] - 11/25/2018 6:54 AM SALES AND MERCHANDISING REPRESENTATIVE us Josué Del Valle MD PhD LAB BLOOD ORDERABLES Arun tamiko Result - Final [facility] Department [place] [address] * (ABNORMAL) CBC without differential (11/25/2018 5:36 AM SALES AND MERCHANDISING REPRESENTATIVE) WBC 16.2(H) 3.8 - 9.9 K/cumm [facility] Hgb 13.8 13.0 - 17.5 g/dL [facility] Hct 40.0 38.9 - 50.3 % [facility] Plt 173 150 - 400 K/cumm [facility] MPV 11.1 9.1 - 12.3 fL [facility] RBC 3.79(L) 4.30 - 5.80 M/cumm [facility] MCV 105.5(H) 81.3 - 96.4 fL [facility] MCH 36.4(H) 27.1 - 33.3 pg [facility] MCHC 34.5 32.3 - 35.7 g/dL [facility] RDW CV 13.5 11.1 - 14.9 % [facility] RDW SD 52.4(H) 35.7 - 48.1 fL [facility] NRBC abs 0.00 0.00 - 0.01 K/cumm [facility] Blood specimen (specimen) 11/25/2018 5:36 AM SALES AND MERCHANDISING REPRESENTATIVE 11/25/2018 6:17 AM SALES AND MERCHANDISING REPRESENTATIVE Narrative [facility] - 11/25/2018 6:26 AM SALES AND MERCHANDISING REPRESENTATIVE us Josué Del Valle MD PhD LAB BLOOD ORDERABLES Fin al Result Performing Organization Address City/[facility]/ZIP Co de Phone Number [facility] Department [place] [address] * Phosphorus (11/25/2018 5:36 AM SALES AND MERCHANDISING REPRESENTATIVE) Phosphorus, pl 2.3 2.3 - 4.5 mg/dL [facility] Blood specimen (specimen) 11/25/2018 5:36 AM SALES AND MERCHANDISING REPRESENTATIVE 11/25/2018 6:16 AM SALES AND MERCHANDISING REPRESENTATIVE Narrative [facility] - 11/25/2018 6:44 AM SALES AND MERCHANDISING REPRESENTATIVE us Josué Del Valle MD PhD LAB BLOOD ORDERABLES Fin al Result Performing Organization Address [facility] [place] [place] [address] * Magnesium (11/25/2018 5:36 AM SALES AND MERCHANDISING REPRESENTATIVE) Magnesium 1.4 1.4 - 2.5 mg/dL [facility] Blood specimen (specimen) 11/25/2018 5:36 AM SALES AND MERCHANDISING REPRESENTATIVE 11/25/2018 6:16 AM SALES AND MERCHANDISING REPRESENTATIVE Narrative [facility] - 11/25/2018 6:44 AM SALES AND MERCHANDISING REPRESENTATIVE Josué Del Valle MD PhD LAB BLOOD ORDERABLES Fin al Result Performing Organization Address City/[facility] Co de Phone Number [facility] [place] [address] * (ABNORMAL) Basic metabolic panel (11/25/2018 5:36 AM SALES AND MERCHANDISING REPRESENTATIVE) Sodium 130(L) 135 - 145 mmol/L [facility] Potassium, pl 4.1 3.3 - 4.9 mmol/L [facility] Chloride 91(L) 97 - 110 mmol/L [facility] CO2 32 22 - 32 mmol/L [facility] Anion gap 7 2 - 15 mmol/L [facility] BUN 12 8 - 25 mg/dL [facility] Creatinine 0.78(L) 0.80 - 1.30 mg/dL [facility] Glucose 271(H) 70 - 199 mg/dL [facility] Comment: Interpretive Data Fasting glucose [...] 2017. Calcium 8.6 8.5 - 10.3 mg/dL [facility] Blood specimen (specimen) 11/25/2018 5:36 AM SALES AND MERCHANDISING REPRESENTATIVE 11/25/2018 6:16 AM SALES AND MERCHANDISING REPRESENTATIVE Narrative [facility] - 11/25/2018 6:44 AM SALES AND MERCHANDISING REPRESENTATIVE Daily except Saturday and . Morning draw. us Josué Del Valle MD PhD LAB BLOOD ORDERABLES Fin al Result [facility] [place] [address] * POCT glucose (11/24/2018 10:39 PM SALES AND MERCHANDISING REPRESENTATIVE) Glucose, POC 89 70 - 199 mg/dL [facility] Blood specimen (specimen) 11/24/2018 10:39 PM SALES AND MERCHANDISING REPRESENTATIVE 11/24/2018 10:39 PM SALES AND MERCHANDISING REPRESENTATIVE Narrative [facility] - 11/24/2018 10:50 PM SALES AND MERCHANDISING REPRESENTATIVE us Josué Del Valle MD PhD LAB POCT ORDERABLES - DE VICE Final Result Performing Organization Address [facility] Phone Number [facility] [place] [address] * POCT glucose (11/24/2018 7:56 PM SALES AND MERCHANDISING REPRESENTATIVE) Glucose, POC 164 70 - 199 mg/dL [facility] Blood specimen (specimen) 11/24/2018 7:56 PM SALES AND MERCHANDISING REPRESENTATIVE 11/24/2018 7:56 PM SALES AND MERCHANDISING REPRESENTATIVE Narrative [facility] - 11/24/2018 8:10 PM SALES AND MERCHANDISING REPRESENTATIVE us Josué Del Valle MD PhD LAB POCT ORDERABLES - DE VICE Final Result Performing Organization Address [facility] de Phone Number [facility] Department [place] [address] * (ABNORMAL) POCT glucose (11/24/2018 12:46 PM SALES AND MERCHANDISING REPRESENTATIVE) Glucose, POC 299(H) 70 - 199 mg/dL [facility] Blood specimen (specimen) 11/24/2018 12:46 PM SALES AND MERCHANDISING REPRESENTATIVE 11/24/2018 12:46 PM SALES AND MERCHANDISING REPRESENTATIVE Narrative [facility] - 11/24/2018 12:56 PM SALES AND MERCHANDISING REPRESENTATIVE us Josué Del Valle MD PhD LAB POCT ORDERABLES - DE VICE Final Result Performing Organization Address [facility] de Phone Number [facility] [place] [address] * (ABNORMAL) POCT glucose (11/24/2018 10:25 AM SALES AND MERCHANDISING REPRESENTATIVE) Glucose, POC 315(H) 70 - 199 mg/dL [facility] Blood specimen (specimen) 11/24/2018 10:25 AM SALES AND MERCHANDISING REPRESENTATIVE 11/24/2018 10:25 AM SALES AND MERCHANDISING REPRESENTATIVE Narrative [facility] - 11/24/2018 10:36 AM SALES AND MERCHANDISING REPRESENTATIVE Josué Del Valle MD PhD LAB POCT ORDERABLES - DE VICE Final Result Performing Organization Address City/[facility] Co de Phone Number [facility] [place] [address] * (ABNORMAL) POCT glucose (11/24/2018 7:47 AM SALES AND MERCHANDISING REPRESENTATIVE) Glucose, POC 460(C) 70 - 199 mg/dL [facility] Glucose comment 1 Doctor Notified [facility] Blood specimen (specimen) 11/24/2018 7:47 AM SALES AND MERCHANDISING REPRESENTATIVE 11/24/2018 7:47 AM SALES AND MERCHANDISING REPRESENTATIVE Narrative [facility] - 11/24/2018 8:00 AM SALES AND MERCHANDISING REPRESENTATIVE us Josué Del Valle MD PhD LAB POCT ORDERABLES - DE VICE Final Result Performing Organization Address [facility] de Phone Number [facility] [place] [address] * Critical Result Callback Chemistry (11/24/2018 5:35 AM SALES AND MERCHANDISING REPRESENTATIVE) Date Notified [id number] [facility] Time Notified 633 [facility] TestName glucose [facility] Called/Read Back latia gustafson [facility] Credentials RN [facility] Called By [facility] Blood specimen (specimen) 11/24/2018 5:35 AM SALES AND MERCHANDISING REPRESENTATIVE 11/24/2018 5:56 AM SALES AND MERCHANDISING REPRESENTATIVE Narrative [facility] - 11/24/2018 6:35 AM SALES AND MERCHANDISING REPRESENTATIVE Josué Del Valle MD PhD LAB BLOOD ORDERABLES Fin al Result Performing Organization Address City/[facility] Co de Phone Number [facility] Department [place] [address] * (ABNORMAL) Manual Differential (11/24/2018 5:35 AM SALES AND MERCHANDISING REPRESENTATIVE) Differential Manual [facility] Cells [facility]ed 112 [facility] Neutrophil abs 9.5(H) 1.7 - 6.5 K/cumm [facility] Imm gran abs 0.0 0.0 - 0.1 K/cumm [facility] Lymphocyte abs 1.4 0.8 - 3.3 K/cumm [facility] Monocyte abs 0.8 0.2 - 0.8 K/cumm [facility] Neutrophil pct 81.3 % [facility] Comment: Interpretive Data Percent cell count reference ranges are not reported, since discordance with absolute values may lead to misinterpretation of CBC data. Current Interpretive Data was last revised on 2018. Lymphocyte pct 10.7 % [facility] Comment: Interpretive Data Percent cell count reference ranges are not reported, since discordance with absolute values may lead to misinterpretation of CBC data. Current Interpretive Data was last revised on 2018. Monocyte pct 7.1 % [facility] Comment: Interpretive Data Percent cell count reference ranges are not reported, since discordance with absolute values may lead to misinterpretation of CBC data. Current Interpretive Data was last revised on 2018. Variant lymph pct 0.9(H) 0.0 - 0.0 % [facility] RBC morphology Present(A) [facility] Anisocytosis Slight(A) [facility] Poikilocytosis Marked(A) [facility] Macrocytes 3-7/HPF(A) [facility] Echinocytes > 15/HPF(A) [facility] Teardrop cells 3-7/HPF(A) [facility] Platelet estimate Adequate [facility] Blood specimen (specimen) 11/24/2018 5:35 AM SALES AND MERCHANDISING REPRESENTATIVE 11/24/2018 5:56 AM SALES AND MERCHANDISING REPRESENTATIVE Narrative [facility] - 11/24/2018 6:41 AM SALES AND MERCHANDISING REPRESENTATIVE Josué Del Valle MD PhD LAB BLOOD ORDERABLES Arun tamiko Result - Final [facility] Department [place] [address] * (ABNORMAL) CBC without differential (11/24/2018 5:35 AM SALES AND MERCHANDISING REPRESENTATIVE) Pathologist [facility] WBC 11.7(H) 3.8 - 9.9 K/cumm [facility] Hgb 14.8 13.0 - 17.5 g/dL [facility] Hct 42.7 38.9 - 50.3 % [facility] Plt 155 150 - 400 K/cumm [facility] MPV 10.7 9.1 - 12.3 fL [facility] RBC 4.13(L) 4.30 - 5.80 M/cumm [facility] MCV 103.4(H) 81.3 - 96.4 fL [facility] MCH 35.8(H) 27.1 - 33.3 pg [facility] MCHC 34.7 32.3 - 35.7 g/dL [facility] RDW CV 13.5 11.1 - 14.9 % [facility] RDW SD 51.3(H) 35.7 - 48.1 fL [facility] NRBC abs 0.00 0.00 - 0.01 K/cumm [facility] Blood specimen (specimen) 11/24/2018 5:35 AM SALES AND MERCHANDISING REPRESENTATIVE 11/24/2018 5:56 AM SALES AND MERCHANDISING REPRESENTATIVE Narrative [facility] - 11/24/2018 6:09 AM SALES AND MERCHANDISING REPRESENTATIVE Josué De lValle MD PhD LAB BLOOD ORDERABLES Fin al Result Performing Organization Address [facility]/ZIP Co de Phone Number [facility] Department [place] [address] * Phosphorus (11/24/2018 5:35 AM SALES AND MERCHANDISING REPRESENTATIVE) Pathologist [facility] Phosphorus, pl 3.1 2.3 - 4.5 mg/dL [facility] Blood specimen (specimen) 11/24/2018 5:35 AM SALES AND MERCHANDISING REPRESENTATIVE 11/24/2018 5:56 AM SALES AND MERCHANDISING REPRESENTATIVE Narrative [facility] - 11/24/2018 6:24 AM SALES AND MERCHANDISING REPRESENTATIVE Josué Del Valle MD PhD LAB BLOOD ORDERABLES Fin al Result Performing Organization Address [facility] de Phone Number [facility] Department [place] [address] * Magnesium (11/24/2018 5:35 AM SALES AND MERCHANDISING REPRESENTATIVE) [facility] Magnesium 1.5 1.4 - 2.5 mg/dL [facility] Blood specimen (specimen) 11/24/2018 5:35 AM SALES AND MERCHANDISING REPRESENTATIVE 11/24/2018 5:56 AM SALES AND MERCHANDISING REPRESENTATIVE Narrative [facility] - 11/24/2018 6:24 AM SALES AND MERCHANDISING REPRESENTATIVE Josué Del Valle MD PhD LAB BLOOD ORDERABLES Fin al Result Performing Organization Address [facility] de Phone Number [facility] Department [place] [address] * (ABNORMAL) Protime-INR (11/24/2018 5:35 AM SALES AND MERCHANDISING REPRESENTATIVE) Pathologist [facility] PT 16.1(H) 8.5 - 13.0 sec [facility] INR 1.49(H) 0.80 - 1.21 [facility] Comment: Interpretive Data Inpatient therapeutic ranges* Atrial fibrillation ?2.0-3.0 INR Venous thrombo-embolism ?2.0-3.0 INR Bioprosthetic heart valve ?* Mechanical heart valve, bileaflet or tilting disk,aortic position ? 2.0-3.0 INR All other,or bileaflet or tilting disk, in mitral position ? 2.5-3.5 INR *See the pharmacy resource directory (PHRED) for an updated copy of the Tool Book at [email or web address] Current Interpretive Data was last revised 2012. Blood specimen (specimen) 11/24/2018 5:35 AM SALES AND MERCHANDISING REPRESENTATIVE 11/24/2018 5:52 AM SALES AND MERCHANDISING REPRESENTATIVE Narrative [facility] - 11/24/2018 6:22 AM SALES AND MERCHANDISING REPRESENTATIVE Josué Del Valle MD PhD LAB BLOOD ORDERABLES Fin al Result Performing Organization Address [facility] de Phone Number [facility] Department [place] [address] * aPTT (11/24/2018 5:35 AM SALES AND MERCHANDISING REPRESENTATIVE) aPTT 34.1 25.0 - 37.0 sec [facility] Comment: Interpretive Data Therapeutic heparin range:60.0 - 94.0 sec based on correlation with therapeutic heparin activity range of 0.3 -0.7 Units/mL. Current interpretive data was last revised on 2011. Blood specimen (specimen) 11/24/2018 5:35 AM SALES AND MERCHANDISING REPRESENTATIVE 11/24/2018 5:52 AM [facility] Narrative [facility] - 11/24/2018 6:22 AM SALES AND MERCHANDISING REPRESENTATIVE Josué Del Valle MD PhD LAB BLOOD ORDERABLES Fin al Result Performing Organization Address [facility] de Phone Number [facility] [place] [address] * (ABNORMAL) Lactate dehydrogenase (LD) (11/24/2018 5:35 AM SALES AND MERCHANDISING REPRESENTATIVE) Lactate dehydrogenase (LDH) 386(H) 100 - 250 Units/L [facility] Blood specimen (specimen) 11/24/2018 5:35 AM SALES AND MERCHANDISING REPRESENTATIVE 11/24/2018 5:56 AM SALES AND MERCHANDISING REPRESENTATIVE Narrative [facility] - 11/24/2018 6:24 AM SALES AND MERCHANDISING REPRESENTATIVE Saturday and only. Morning draw. Josué Del Valle MD PhD LAB BLOOD ORDERABLES Fin al Result Performing Organization Address [facility] de Phone Number [facility] [place] [address] * Uric acid (11/24/2018 5:35 AM SALES AND MERCHANDISING REPRESENTATIVE) Pathologist [facility] Uric acid 3.0 3.0 - 8.0 mg/dL [facility] Blood specimen (specimen) 11/24/2018 5:35 AM SALES AND MERCHANDISING REPRESENTATIVE 11/24/2018 5:56 AM SALES AND MERCHANDISING REPRESENTATIVE Narrative [facility] - 11/24/2018 6:24 AM SALES AND MERCHANDISING REPRESENTATIVE Saturday and only. Morning draw. . Josué Del Valle MD PhD LAB BLOOD ORDERABLES Fin al Result Performing Organization Address [facility] de Phone Number [facility] [place] [address] * (ABNORMAL) Comprehensive metabolic panel (11/24/2018 5:35 AM SALES AND MERCHANDISING REPRESENTATIVE) Pathologist [facility] Sodium 135 135 - 145 mmol/L [facility] Potassium, pl 4.4 3.3 - 4.9 mmol/L [facility] Chloride 96(L) 97 - 110 mmol/L [facility] CO2 31 22 - 32 mmol/L [facility] Anion gap 8 2 - 15 mmol/L [facility] BUN 16 8 - 25 mg/dL [facility] Creatinine 0.81 0.80 - 1.30 mg/dL [facility] Glucose 470(C) 70 - 199 mg/dL [facility] Comment: Interpretive Data Fasting glucose [...] 2017. Calcium 8.8 8.5 - 10.3 mg/dL [facility] Bilirubin, total 0.6 0.1 - 1.2 mg/dL [facility] Protein, pl 6.1(L) 6.5 - 8.5 g/dL [facility] Albumin 3.6 3.5 - 5.0 g/dL [facility] Alk phos 73 40 - 130 Units/L [facility] ALT 29 7 - 55 Units/L [facility] AST 25 10 - 50 Units/L [facility] Blood specimen (specimen) 11/24/2018 5:35 AM SALES AND MERCHANDISING REPRESENTATIVE 11/24/2018 5:56 AM SALES AND MERCHANDISING REPRESENTATIVE Narrative [facility] - 11/24/2018 6:29 AM SALES AND MERCHANDISING REPRESENTATIVE Saturday and only. Morning draw. us Josué Del Valle MD PhD LAB BLOOD ORDERABLES Fin al Result [facility] Department [place] [address] * Type and screen (11/24/2018 5:35 AM SALES AND MERCHANDISING REPRESENTATIVE) ABO Rh A Positive [facility] Ursula, indirect Negative [facility] Blood specimen (specimen) 11/24/2018 5:35 AM SALES AND MERCHANDISING REPRESENTATIVE 11/24/2018 5:56 AM SALES AND MERCHANDISING REPRESENTATIVE Narrative [facility] - 11/24/2018 7:39 AM SALES AND MERCHANDISING REPRESENTATIVE Has the patient had Daratumumab (Darzalex) in the past 6 months?->Unknown us Josué Del Valle MD PhD LAB BLOOD BANK TEST ORDE BAKARI Final Result [facility] [place] [address] * (ABNORMAL) POCT glucose (11/23/2018 9:33 PM SALES AND MERCHANDISING REPRESENTATIVE) Glucose, POC 316(H) 70 - 199 mg/dL [facility] Glucose comment 1 RN Notified [facility] Blood specimen (specimen) 11/23/2018 9:33 PM SALES AND MERCHANDISING REPRESENTATIVE 11/23/2018 9:33 PM SALES AND MERCHANDISING REPRESENTATIVE Narrative [facility] - 11/23/2018 9:44 PM SALES AND MERCHANDISING REPRESENTATIVE us Josué Del Valle MD PhD LAB POCT ORDERABLES - DE VICE Final Result Performing Organization Address City/[facility]/ZIP Co de Phone Number [facility] [place] [address] * (ABNORMAL) POCT glucose (11/23/2018 5:37 PM SALES AND MERCHANDISING REPRESENTATIVE) [facility] Glucose, POC 249(H) 70 - 199 mg/dL [facility] Blood specimen (specimen) 11/23/2018 5:37 PM SALES AND MERCHANDISING REPRESENTATIVE 11/23/2018 5:37 PM SALES AND MERCHANDISING REPRESENTATIVE Narrative [facility] - 11/23/2018 5:58 PM SALES AND MERCHANDISING REPRESENTATIVE us Josué Del Valle MD PhD LAB POCT ORDERABLES - DE VICE Final Result [facility] [place] [address] * POCT glucose (11/23/2018 12:38 PM SALES AND MERCHANDISING REPRESENTATIVE) Glucose, POC 151 70 - 199 mg/dL [facility] Blood specimen (specimen) 11/23/2018 12:38 PM SALES AND MERCHANDISING REPRESENTATIVE 11/23/2018 12:38 PM SALES AND MERCHANDISING REPRESENTATIVE Narrative [facility] - 11/23/2018 12:49 PM SALES AND MERCHANDISING REPRESENTATIVE Josué Del Valle MD PhD LAB POCT ORDERABLES - DE VICE Final Result Performing Organization Address City/[facility] Co de Phone Number [facility] [place] [address] * (ABNORMAL) POCT glucose (11/23/2018 9:15 AM SALES AND MERCHANDISING REPRESENTATIVE) Glucose, POC 333(H) 70 - 199 mg/dL [facility] Blood specimen (specimen) 11/23/2018 9:15 AM SALES AND MERCHANDISING REPRESENTATIVE 11/23/2018 9:15 AM SALES AND MERCHANDISING REPRESENTATIVE Narrative [facility] - 11/23/2018 9:26 AM SALES AND MERCHANDISING REPRESENTATIVE Josué Del Valle MD PhD LAB POCT ORDERABLES - DE VICE Final Result Performing Organization Address [facility] Co de Phone Number [facility] [place] [address] * (ABNORMAL) Hemoglobin A1c (11/23/2018 4:43 AM SALES AND MERCHANDISING REPRESENTATIVE) Hgb A1C 14.2(H) 4.0 - 5.6 % [facility] Estimated Average Glucose 361 mg/dL [facility] Comment: The ADA recommends reporting an estimated Average Glucose (eAG) with all Hemoglobin A1c results using the equation derived from a study of 507 normal and diabetic adults. ??Minority populations were underrepresented and children were not included. ?? (Diabetes Care 31:4614-2260, 2008). ??The eAG is not equivalent to a fasting glucose. Blood specimen (specimen) 11/23/2018 4:43 AM SALES AND MERCHANDISING REPRESENTATIVE 11/23/2018 5:06 AM SALES AND MERCHANDISING REPRESENTATIVE Narrative [facility] - 11/23/2018 9:22 AM SALES AND MERCHANDISING REPRESENTATIVE Josué Del Valle MD PhD LAB BLOOD ORDERABLES Fin al Result Performing Organization Address City/[facility] Co de Phone Number [facility] [place] [address] * (ABNORMAL) Basic metabolic panel (11/23/2018 4:43 AM SALES AND MERCHANDISING REPRESENTATIVE) [facility] Sodium 137 135 - 145 mmol/L [facility] Potassium, pl 4.8 3.3 - 4.9 mmol/L [facility] Comment:Hemolyzed; (+++); po tassium value may be falsely elevated by as much as 0.6 - 1.0 mmol/L. Suggest redraw and reanalysis. Chloride 99 97 - 110 mmol/L [facility] CO2 31 22 - 32 mmol/L [facility] Anion gap 7 2 - 15 mmol/L [facility] BUN 11 8 - 25 mg/dL [facility] Creatinine 0.85 0.80 - 1.30 mg/dL [facility] Glucose 223(H) 70 - 199 mg/dL [facility] Comment: Interpretive Data Fasting glucose [...] 2017. Calcium 8.7 8.5 - 10.3 mg/dL [facility] Blood specimen (specimen) 11/23/2018 4:43 AM SALES AND MERCHANDISING REPRESENTATIVE 11/23/2018 4:59 AM SALES AND MERCHANDISING REPRESENTATIVE Narrative [facility] - 11/23/2018 5:34 AM SALES AND MERCHANDISING REPRESENTATIVE us Josué Del Valle MD PhD LAB BLOOD ORDERABLES Fin al Result [facility] Department [place] [address] * (ABNORMAL) Manual Differential (11/23/2018 4:43 AM SALES AND MERCHANDISING REPRESENTATIVE) [facility] Differential Manual [facility] Cells Counted 115 [facility] Neutrophil abs 8.4(H) 1.7 - 6.5 K/cumm [facility] Imm gran abs 0.1 0.0 - 0.1 K/cumm [facility] Lymphocyte abs 1.2 0.8 - 3.3 K/cumm [facility] Monocyte abs 0.4 0.2 - 0.8 K/cumm [facility] Neutrophil pct 82.6 % [facility] Comment: Interpretive Data Percent cell count reference ranges are not reported, since discordance with absolute values may lead to misinterpretation of CBC data. Current Interpretive Data was last revised on 2018. Lymphocyte pct 7.8 % [facility] Comment: Interpretive Data Percent cell count reference ranges are not reported, since discordance with absolute values may lead to misinterpretation of CBC data. Current Interpretive Data was last revised on 2018. Monocyte pct 4.4 % [facility] Comment: Interpretive Data Percent cell count reference ranges are not reported, since discordance with absolute values may lead to misinterpretation of CBC data. Current Interpretive Data was last revised on 2018. Myelocyte pct 0.9 % [facility] Variant lymph pct 4.3(H) 0.0 - 0.0 % [facility] RBC morphology Present(A) [facility] Anisocytosis Slight(A) [facility] Poikilocytosis Marked(A) [facility] Macrocytes 3-7/HPF(A) [facility] Target cells 3-7/HPF(A) [facility] Platelet estimate Adequate [facility] Blood specimen (specimen) 11/23/2018 4:43 AM SALES AND MERCHANDISING REPRESENTATIVE 11/23/2018 5:06 AM SALES AND MERCHANDISING REPRESENTATIVE Narrative [facility] - 11/23/2018 5:43 AM SALES AND MERCHANDISING REPRESENTATIVE Josué Del Valle MD PhD LAB BLOOD ORDERABLES Arun tamiko Result - Final [facility] Department [place] [address] * (ABNORMAL) CBC without differential (11/23/2018 4:43 AM SALES AND MERCHANDISING REPRESENTATIVE) WBC 10.2(H) 3.8 - 9.9 K/cumm [facility] Hgb 15.5 13.0 - 17.5 g/dL [facility] Hct 45.4 38.9 - 50.3 % [facility] Plt 152 150 - 400 K/cumm [facility] MPV 11.2 9.1 - 12.3 fL [facility] RBC 4.35 4.30 - 5.80 M/cumm [facility] MCV 104.4(H) 81.3 - 96.4 fL [facility] MCH 35.6(H) 27.1 - 33.3 pg [facility] MCHC 34.1 32.3 - 35.7 g/dL [facility] RDW CV 13.6 11.1 - 14.9 % [facility] RDW SD 52.7(H) 35.7 - 48.1 fL [facility] NRBC abs 0.00 0.00 - 0.01 K/cumm [facility] Blood specimen (specimen) 11/23/2018 4:43 AM SALES AND MERCHANDISING REPRESENTATIVE 11/23/2018 5:06 AM SALES AND MERCHANDISING REPRESENTATIVE Narrative [facility] - 11/23/2018 5:13 AM SALES AND MERCHANDISING REPRESENTATIVE us Josué Del Valle MD PhD LAB BLOOD ORDERABLES Fin al Result [facility] Department [place] [address] * Tacrolimus level trough (11/23/2018 4:43 AM SALES AND MERCHANDISING REPRESENTATIVE) Tacrolimus, trough <1.0 ng/mL [facility] Comment: Undetectable. ??Please verify that the correct immunosuppressant test was requested. Interpretive Data The therapeutic range for tacrolimus can vary by transplant organ type and sample timing but a trough range of 5 - 15 ng/mL is typical. Testing performed by liquid chromatography-tandem mass spectrometry (LC- MS/MS).This test was developed using an analyte specific reagent. Its performance characteristics were determined by the [facility] in a manner consistent with CLIA requirements. This test has not been cleared or approved by the U.S. Food and Drug Administration. Current interpretive data was last revised on 2016. Blood specimen (specimen) 11/23/2018 4:43 AM SALES AND MERCHANDISING REPRESENTATIVE 11/23/2018 5:06 AM SALES AND MERCHANDISING REPRESENTATIVE Narrative [facility] - 11/23/2018 6:11 AM SALES AND MERCHANDISING REPRESENTATIVE Josué Del Valle MD PhD LAB BLOOD ORDERABLES Fin al Result Performing Organization Address City/[facility] [place] [place] [address] * Phosphorus (11/23/2018 4:43 AM SALES AND MERCHANDISING REPRESENTATIVE) Phosphorus, pl 3.4 2.3 - 4.5 mg/dL [facility] Blood specimen (specimen) 11/23/2018 4:43 AM SALES AND MERCHANDISING REPRESENTATIVE 11/23/2018 4:59 AM SALES AND MERCHANDISING REPRESENTATIVE Narrative [facility] - 11/23/2018 5:34 AM SALES AND MERCHANDISING REPRESENTATIVE Josué Del Valle MD PhD LAB BLOOD ORDERABLES Fin al Result Performing Organization Address [facility] de Phone Number [facility] Department [place] [address] * Magnesium (11/23/2018 4:43 AM SALES AND MERCHANDISING REPRESENTATIVE) Magnesium 1.5 1.4 - 2.5 mg/dL [facility] Blood specimen (specimen) 11/23/2018 4:43 AM SALES AND MERCHANDISING REPRESENTATIVE 11/23/2018 4:59 AM SALES AND MERCHANDISING REPRESENTATIVE Narrative [facility] - 11/23/2018 5:34 AM SALES AND MERCHANDISING REPRESENTATIVE Josué Del Valle MD PhD LAB BLOOD ORDERABLES Fin al Result Performing Organization Address City/[facility] Co de Phone Number [facility] Department [place] [address] * (ABNORMAL) POCT glucose (11/22/2018 9:52 PM SALES AND MERCHANDISING REPRESENTATIVE) Pathologist [facility] Glucose, POC 237(H) 70 - 199 mg/dL [facility] Blood specimen (specimen) 11/22/2018 9:52 PM SALES AND MERCHANDISING REPRESENTATIVE 11/22/2018 9:52 PM SALES AND MERCHANDISING REPRESENTATIVE Narrative [facility] - 11/22/2018 10:03 PM SALES AND MERCHANDISING REPRESENTATIVE us Josué Del Valle MD PhD LAB POCT ORDERABLES - DE VICE Final Result Performing Organization Address City/[facility]/ZIP Co de Phone Number [facility] [place] [address] * ECG 12 lead (11/22/2018 6:30 PM SALES AND MERCHANDISING REPRESENTATIVE) [facility] Ventricular Rate EKG/Min 81 BPM [facility] Atrial Rate 81 BPM [facility] CO-Interval (MSEC) 122 ms [facility] QRS-Interval (MSEC) 82 ms [facility] QT-Interval (MSEC) 356 ms [facility] QTc 413 ms [facility] P [place] 76 degrees [facility] R [place] 99 degrees [facility] T [place] 8 degrees [facility] Diagnosis Normal sinus rhythm Possible Left atrial enlargement Rightward axis Nonspecific ST abnormality Abnormal ECG Poor precordial R wave progression consistent with faulty lead placement ,copd, anterior infarction, etc. When compared with ECG of 23-NOV-2017 16:05, Non-specific change in ST segment in Inferior leads T wave inversion now evident in Inferior leads This ECG was personally interpreted by the attending physician indicated below Confirmed by NGOZI MILES M.D ([id number]) on 11/25/2018 2:28:23 PM [facility] 11/22/2018 6:30 PM SALES AND MERCHANDISING REPRESENTATIVE 11/25/2018 2:28 PM SALES AND MERCHANDISING REPRESENTATIVE us Josué Del Valle MD PhD ECG ORDERABLES Final Re sult [facility] * POCT glucose (11/22/2018 5:33 PM SALES AND MERCHANDISING REPRESENTATIVE) Glucose, POC 92 70 - 199 mg/dL [facility] Blood specimen (specimen) 11/22/2018 5:33 PM SALES AND MERCHANDISING REPRESENTATIVE 11/22/2018 5:33 PM SALES AND MERCHANDISING REPRESENTATIVE Narrative [facility] - 11/22/2018 5:44 PM SALES AND MERCHANDISING REPRESENTATIVE us Josué Del Valle MD PhD LAB POCT ORDERABLES - DE VICE Final Result Performing Organization Address [facility] Co de Phone Number [facility] Department [place] [address] * (ABNORMAL) POCT glucose (11/22/2018 2:15 PM SALES AND MERCHANDISING REPRESENTATIVE) Glucose, POC 319(H) 70 - 199 mg/dL [facility] Blood specimen (specimen) 11/22/2018 2:15 PM SALES AND MERCHANDISING REPRESENTATIVE 11/22/2018 2:15 PM SALES AND MERCHANDISING REPRESENTATIVE Narrative [facility] - 11/22/2018 2:29 PM SALES AND MERCHANDISING REPRESENTATIVE us Josué Del Valle MD PhD LAB POCT ORDERABLES - DE VICE Final Result Performing Organization Address [facility] Co de Phone Number [facility] Department [place] [place] [address] * CT Chest PE W Contrast (11/22/2018 1:50 PM SALES AND MERCHANDISING REPRESENTATIVE) Anatomical Region Laterality Modality Body N/A Computed Tomogra phy 11/22/2018 2:08 PM SALES AND MERCHANDISING REPRESENTATIVE Impressions 11/22/2018 2:08 PM SALES AND MERCHANDISING REPRESENTATIVE 1. No evidence of pulmonary embolism. 2. Resolved right lower lobe consolidation and right-sided pleural effusion. 3. Improved peripancreatic fat stranding with a small amount of residual fat stranding seen along the superior margin of the pancreatic body compatible with improving pancreatitis. Recommend correlation with lipase levels. 4. Emphysema. Electronically signed by: Dayron Ayoub M.D. Narrative 11/22/2018 2:08 PM SALES AND MERCHANDISING REPRESENTATIVE EXAMINATION: ??Computed tomography of the chest with intravenous contrast HISTORY: Cough, shortness of breath TECHNIQUE: ??Transaxial computed tomographic images of the chest were obtained with intravenous contrast according to the PE protocol after the uneventful administration of 100 mL Opti-Ray 350 intravenous contrast. COMPARISON: 12/09/2017 FINDINGS: ?? No intraluminal filling defects are noted within the pulmonary arteries. Main pulmonary artery measures 2.6 cm and is within normal limits. The lungs demonstrate diffuse emphysematous changes. The previously noted right lower lobe consolidation has resolved. The previously seen right-sided pleural effusion has also resolved. No suspicious pulmonary nodules are seen. Atelectasis of the right middle lobe is noted and unchanged. Scarring of the right lung apex is present. The heart is of normal size without pericardial effusion. No mediastinal or hilar lymphadenopathy is noted. No supraclavicular or axillary lymphadenopathy. Osseous structures are without lytic or blastic lesions. Mild gynecomastia is seen bilaterally. The included upper abdomen demonstrates improved peripancreatic stranding when compared to prior examination. A small round a residual stranding is seen along the superior aspect of the pancreatic body. Procedure Note Dayron Ayoub, DO - 11/22/2018 EXAMINATION: Computed tomography of the chest with intravenous contrast HISTORY: Cough, shortness of breath TECHNIQUE: Transaxial computed tomographic images of the chest were obtained with intravenous contrast according to the PE protocol after the uneventful administration of 100 mL Opti-Ray 350 intravenous contrast. COMPARISON: 12/09/2017 FINDINGS: No intraluminal filling defects are noted within the pulmonary arteries. Main pulmonary artery measures 2.6 cm and is within normal limits. The lungs demonstrate diffuse emphysematous changes. The previously noted right lower lobe consolidation has resolved. The previously seen right-sided pleural effusion has also resolved. No suspicious pulmonary nodules are seen. Atelectasis of the right middle lobe is noted and unchanged. Scarring of the right lung apex is present. The heart is of normal size without pericardial effusion. No mediastinal or hilar lymphadenopathy is noted. No supraclavicular or axillary lymphadenopathy. Osseous structures are without lytic or blastic lesions. Mild gynecomastia is seen bilaterally. The included upper abdomen demonstrates improved peripancreatic stranding when compared to prior examination. A small round a residual stranding is seen along the superior aspect of the pancreatic body. IMPRESSION: 1. No evidence of pulmonary embolism. 2. Resolved right lower lobe consolidation and right-sided pleural effusion. 3. Improved peripancreatic fat stranding with a small amount of residual fat stranding seen along the superior margin of the pancreatic body compatible with improving pancreatitis. Recommend correlation with lipase levels. 4. Emphysema. Electronically signed by: Dayron Ayoub M.D. us Louise Resendiz MEDICAL SERVICE TECHNICIAN IMG CT PROCEDURES Final Resu lt * CT head with contrast (11/22/2018 1:50 PM SALES AND MERCHANDISING REPRESENTATIVE) Anatomical Region Laterality Modality Head and Neck N/A Computed Tomogra phy 11/22/2018 2:40 PM SALES AND MERCHANDISING REPRESENTATIVE Impressions 11/22/2018 7:10 PM SALES AND MERCHANDISING REPRESENTATIVE 1. No acute intracranial abnormality. 2. Inflammatory sinusitis. Dictated by: Fela Miller M.D. Electronically signed by: Avinash Garces M.D. Narrative 11/22/2018 7:10 PM SALES AND MERCHANDISING REPRESENTATIVE EXAMINATION: Head CT with contrast HISTORY: Headache. TECHNIQUE: CT of the brain was performed with images acquired from skull base to vertex after the uneventful administration of intravenous contrast. Contrast information: 100 mL Optiray-350 COMPARISON: None available. FINDINGS: Topogram demonstrates no lytic lesions or fractures. There is no acute intracranial hemorrhage. Ventricles are of normal size and morphology. No mass effect or midline shift is present. The gupta-white matter differentiation is normal. The visualized portions of the orbits are normal. The visualized portions of the mastoids are normal. There is mucosal thickening of the maxillary and sphenoid sinuses without evidence of extrasinus extension. No fractures are identified. There are no areas of abnormal contrast enhancement. The dural venous sinuses are patent. Procedure Note Avinash Garces MD - 11/22/2018 EXAMINATION: Head CT with contrast HISTORY: Headache. TECHNIQUE: CT of the brain was performed with images acquired from skull base to vertex after the uneventful administration of intravenous contrast. Contrast information: 100 mL Optiray-350 COMPARISON: None available. FINDINGS: Topogram demonstrates no lytic lesions or fractures. There is no acute intracranial hemorrhage. Ventricles are of normal size and morphology. No mass effect or midline shift is present. The gupta-white matter differentiation is normal. The visualized portions of the orbits are normal. The visualized portions of the mastoids are normal. There is mucosal thickening of the maxillary and sphenoid sinuses without evidence of extrasinus extension. No fractures are identified. There are no areas of abnormal contrast enhancement. The dural venous sinuses are patent. IMPRESSION: 1. No acute intracranial abnormality. 2. Inflammatory sinusitis. Dictated by: Fela Miller M.D. Electronically signed by: Avinash Garces M.D. us Louise Resendiz MEDICAL SERVICE TECHNICIAN IMG CT PROCEDURES Final Resu lt * (ABNORMAL) POCT glucose (11/22/2018 12:35 PM SALES AND MERCHANDISING REPRESENTATIVE) Pathologist [facility] Glucose, POC 457(C) 70 - 199 mg/dL [facility] Glucose comment 1 Glu2: [facility] Blood specimen (specimen) 11/22/2018 12:35 PM SALES AND MERCHANDISING REPRESENTATIVE 11/22/2018 12:35 PM SALES AND MERCHANDISING REPRESENTATIVE Narrative [facility] - 11/22/2018 12:39 PM SALES AND MERCHANDISING REPRESENTATIVE us Josué Del Valle MD PhD LAB POCT ORDERABLES - DE VICE Final Result [facility] Department [place] [address] * (ABNORMAL) Urinalysis reflex to microscopic and culture Urine (11/22/2018 11:21 AM SALES AND MERCHANDISING REPRESENTATIVE) Color, ur Yellow Yellow [facility] Clarity, ur Clear Clear [facility] Specific gravity, ur >1.042(H) 1.010 - 1.025 [facility] pH, urine 6.0 [facility] Protein, ur ql Negative Negative [facility] Glucose, ur ql 3+(A) Negative [facility] Ketones, ur Negative Negative [facility] Bilirubin, ur Negative Negative [facility] Blood, ur Negative Negative [facility] Urobilinogen, ur <2.0 <2.0 mg/dL [facility] Nitrite, ur Negative Negative [facility] Leukocyte esterase, ur Negative Negative [facility] Urine 11/22/2018 11:2 1 AM SALES AND MERCHANDISING REPRESENTATIVE 11/22/2018 4:32 PM SALES AND MERCHANDISING REPRESENTATIVE Narrative [facility] - 11/22/2018 4:52 PM SALES AND MERCHANDISING REPRESENTATIVE ?? Urine pH is affected by diet, medications, systemic acid-base disturbances, and renal tubular function. ??pH may affect urinary stone formation. ??For example, urine pH below 6.0 may help reduce the tendency for calcium phosphate stones and pH greater than 6.0 may reduce the tendency for uric acid stone formation. Source: [facility] [employer]. Last revised 11-28-2017 us Louise Resendiz NP LAB MICROBIOLOGY - GENERAL O RDERABLES Final Result [facility] Department [place] [address] * Respiratory pathogen PCR Nasopharyngeal (11/22/2018 11:21 AM SALES AND MERCHANDISING REPRESENTATIVE) Report Final Report: Respiratory Pathogen nucleic acids NOT DETECTED (NEGATIVE) [facility] Nasopharyngeal 11/22/2018 11 :21 AM SALES AND MERCHANDISING REPRESENTATIVE 11/22/2018 1:17 PM SALES AND MERCHANDISING REPRESENTATIVE Narrative [facility] - 11/22/2018 2:36 PM SALES AND MERCHANDISING REPRESENTATIVE The [employer] FilmArray Respiratory Panel (RP2) assay is a multiplexed nucleic acid test capable of simultaneous qualitative detection and identification of multiple respiratory viral and bacterial nucleic acids. The following bacteria, viruses and virus subtypes can be identified using the FilmArray RP assay: Bordetella pertussis, Bordetella parapertussis, Chlamydophila pneumoniae, Mycoplasma pneumoniae, Adenovirus, Coronavirus HKU1, Coronavirus NL63, Coronavirus 229E, Coronavirus OC43, Influenza A, Influenza A subtype H1, Influenza A subtype H3, Influenza A subtype 2009 H1, Influenza B, Metapneumovirus, Parainfluenza 1, Parainfluenza 2, Parainfluenza 3, Parainfluenza 4, RSV, Rhinovirus/Enterovirus. Due to the genetic similarity between human Rhinovirus and Enterovirus, the FilmArray RP assay cannot reliably differentiate them. Coronavirus OC43 [...] organisms. ??The agent(s) detected by the FilmArray RP may not be the definite cause of disease. ??Additional testing (lab, imaging, etc) may be necessary when evaluating a patient with possible respiratory tract infection. The FilmArray RP assay is FDA cleared for MEDICAL SERVICE TECHNICIAN swabs. ??Additional sample types have been validated according to CLIA regulations. The performance characteristics of this assay have been determined by [facility] Molecular Infectious Disease Laboratory. Current interpretive data was last revised on 2017. us Louise Resendiz MEDICAL SERVICE TECHNICIAN LAB MICROBIOLOGY - GENERAL O RDERABLES Final Result [facility] Department [place] [address] * (ABNORMAL) Hemoglobin A1c (11/22/2018 11:20 AM SALES AND MERCHANDISING REPRESENTATIVE) Hgb A1C 14.3(H) 4.0 - 5.6 % [facility] Estimated Average Glucose 364 mg/dL [facility] Comment: The ADA recommends reporting an estimated Average Glucose (eAG) with all Hemoglobin A1c results using the equation derived from a study of 507 normal and diabetic adults. ??Minority populations were underrepresented and children were not included. ?? (Diabetes Care 31:8035-5151, 2008). ??The eAG is not equivalent to a fasting glucose. Blood specimen (specimen) 11/22/2018 11:20 AM SALES AND MERCHANDISING REPRESENTATIVE 11/22/2018 11:41 AM SALES AND MERCHANDISING REPRESENTATIVE Narrative [facility] - 11/23/2018 7:23 AM SALES AND MERCHANDISING REPRESENTATIVE us Josué Del Valle MD PhD LAB BLOOD ORDERABLES Fin al Result [facility] Department [place] [address] * (ABNORMAL) Differential, auto (11/22/2018 11:20 AM SALES AND MERCHANDISING REPRESENTATIVE) Neutrophil abs 9.0(H) 1.7 - 6.5 K/cumm [facility] Imm gran abs 0.1 0.0 - 0.1 K/cumm [facility] Lymphocyte abs 3.2 0.8 - 3.3 K/cumm [facility] Monocyte abs 1.1(H) 0.2 - 0.8 K/cumm [facility] Eosinophil abs 0.0 0.0 - 0.5 K/cumm [facility] Basophil abs 0.0 0.0 - 0.1 K/cumm [facility] Neutrophil pct 66.3 % [facility] Comment: Interpretive Data Percent cell count reference ranges are not reported, since discordance with absolute values may lead to misinterpretation of CBC data. Current Interpretive Data was last revised on 2018. Imm gran pct 1.0 % [facility] Comment: Interpretive Data Percent cell count reference ranges are not reported, since discordance with absolute values may lead to misinterpretation of CBC data. Current Interpretive Data was last revised on 2018. Lymphocyte pct 24.0 % [facility] Comment: Interpretive Data Percent cell count reference ranges are not reported, since discordance with absolute values may lead to misinterpretation of CBC data. Current Interpretive Data was last revised on 2018. Monocyte pct 8.2 % [facility] Comment: Interpretive Data Percent cell count reference ranges are not reported, since discordance with absolute values may lead to misinterpretation of CBC data. Current Interpretive Data was last revised on 2018. Eosinophil pct 0.3 % [facility] Comment: Interpretive Data Percent cell count reference ranges are not reported, since discordance with absolute values may lead to misinterpretation of CBC data. Current Interpretive Data was last revised on 2018. Basophil pct 0.2 % [facility] Comment: Interpretive Data Percent cell count reference ranges are not reported, since discordance with absolute values may lead to misinterpretation of CBC data. Current Interpretive Data was last revised on 2018. Blood specimen (specimen) 11/22/2018 11:20 AM SALES AND MERCHANDISING REPRESENTATIVE 11/22/2018 11:41 AM SALES AND MERCHANDISING REPRESENTATIVE Narrative [facility] - 11/22/2018 11:52 AM SALES AND MERCHANDISING REPRESENTATIVE Louise Resendiz MEDICAL SERVICE TECHNICIAN LAB BLOOD ORDERABLES Final R esult Performing Organization Address City/[facility]/ZIP Co de Phone Number [facility] Department [place] [address] * Type and screen (11/22/2018 11:20 AM SALES AND MERCHANDISING REPRESENTATIVE) ABO Rh A Positive [facility] [place], indirect Negative [facility] Blood specimen (specimen) 11/22/2018 11:20 AM SALES AND MERCHANDISING REPRESENTATIVE 11/22/2018 11:48 AM SALES AND MERCHANDISING REPRESENTATIVE Narrative [facility] - 11/22/2018 12:41 PM SALES AND MERCHANDISING REPRESENTATIVE Has the patient had Daratumumab (Darzalex) in the past 6 months?->Unknown Louise Resendiz MEDICAL SERVICE TECHNICIAN LAB BLOOD BANK TEST ORDERABL ES Final Result Performing Organization Address [facility] Co de Phone Number [facility] Department [place] [address] * Blood culture Blood (11/22/2018 11:20 AM SALES AND MERCHANDISING REPRESENTATIVE) Report Final Report: No growth [facility] Blood specimen (specimen) (Antecubital, right) 11/22/2018 11:20 AM SALES AND MERCHANDISING REPRESENTATIVE 11/22/2018 1:57 PM SALES AND MERCHANDISING REPRESENTATIVE Narrative [facility] - 11/27/2018 4:00 PM SALES AND MERCHANDISING REPRESENTATIVE Blood cultures are incubated for five days on a continuously monitored blood culture system. ??The first report of a negative culture is issued within 24 hours of receipt of the specimen in the laboratory. ??Positive culture results are reported as soon as they are detected. ??For blood cultures with gram-positive cocci, a rapid molecular test for organism identification may be performed using the [employer] Nanosphere Gram Positive Blood Culture Assay. ??The Nanosphere assay detects microbial DNA in positive blood culture broth via hybridization of target DNA to capture oligonucleotides on a microarray. ??This assay has been cleared by the [place] Food and Drug Administration and its performance characteristics have been verified by the [facility]. Current Interpretive Data was last revised on 2014. Louise Resendiz LAB MICROBIOLOGY - GENERAL O RDERABLES Final Result [facility] Department [place] [address] * Blood culture Blood (11/22/2018 11:20 AM SALES AND MERCHANDISING REPRESENTATIVE) Report Final Report: No growth [facility] Blood specimen (specimen) (Antecubital, left) 11/22/2018 11:20 AM SALES AND MERCHANDISING REPRESENTATIVE 11/22/2018 1:56 PM SALES AND MERCHANDISING REPRESENTATIVE Narrative [facility] - 11/27/2018 4:00 PM [facility] Blood cultures are incubated for five days on a continuously monitored blood culture system. ??The first report of a negative culture is issued within 24 hours of receipt of the specimen in the laboratory. ??Positive culture results are reported as soon as they are detected. ??For blood cultures with gram-positive cocci, a rapid molecular test for organism identification may be performed using the [employer] Nanosphere Gram Positive Blood Culture Assay. ??The Nanosphere assay detects microbial DNA in positive blood culture broth via hybridization of target DNA to capture oligonucleotides on a microarray. ??This assay has been cleared by the [place] Food and Drug Administration and its performance characteristics have been verified by the [facility] Laboratory. Current Interpretive Data was last revised on 2014. Louise Resendiz NP LAB MICROBIOLOGY - GENERAL O RDERABLES Final Result Performing Organization Address [facility] de Phone Number [facility] [place] [address] * (ABNORMAL) Lactate (11/22/2018 11:20 AM SALES AND MERCHANDISING REPRESENTATIVE) Lactate 3.8(H) 0.7 - 2.0 mmol/L [facility] Blood specimen (specimen) 11/22/2018 11:20 AM SALES AND MERCHANDISING REPRESENTATIVE 11/22/2018 11:42 AM SALES AND MERCHANDISING REPRESENTATIVE Narrative [facility] - 11/22/2018 12:29 PM SALES AND MERCHANDISING REPRESENTATIVE Louise Resendiz MEDICAL SERVICE TECHNICIAN LAB BLOOD ORDERABLES Final R esult Performing Organization Address [facility] [place] [address] * (ABNORMAL) Phosphorus (11/22/2018 11:20 AM SALES AND MERCHANDISING REPRESENTATIVE) Phosphorus, pl 1.6(L) 2.3 - 4.5 mg/dL [facility] Blood specimen (specimen) 11/22/2018 11:20 AM SALES AND MERCHANDISING REPRESENTATIVE 11/22/2018 11:42 AM SALES AND MERCHANDISING REPRESENTATIVE Narrative [facility] - 11/22/2018 12:09 PM SALES AND MERCHANDISING REPRESENTATIVE Louise Resendiz MEDICAL SERVICE TECHNICIAN LAB BLOOD ORDERABLES Final R esult Performing Organization Address [facility] Co de Phone Number [facility] [place] [address] * Magnesium (11/22/2018 11:20 AM SALES AND MERCHANDISING REPRESENTATIVE) Magnesium 1.4 1.4 - 2.5 mg/dL [facility] Blood specimen (specimen) 11/22/2018 11:20 AM SALES AND MERCHANDISING REPRESENTATIVE 11/22/2018 11:42 AM SALES AND MERCHANDISING REPRESENTATIVE Narrative [facility] - 11/22/2018 12:09 PM SALES AND MERCHANDISING REPRESENTATIVE us Louise Resendiz NP LAB BLOOD ORDERABLES Final R esult [facility] Department [place] [address] * (ABNORMAL) Comprehensive metabolic panel (11/22/2018 11:20 AM SALES AND MERCHANDISING REPRESENTATIVE) Sodium 132(L) 135 - 145 mmol/L [facility] Potassium, pl 4.3 3.3 - 4.9 mmol/L [facility] Chloride 93(L) 97 - 110 mmol/L [facility] CO2 29 22 - 32 mmol/L [facility] Anion gap 10 2 - 15 mmol/L [facility] BUN 13 8 - 25 mg/dL [facility] Creatinine 0.92 0.80 - 1.30 mg/dL [facility] Glucose 438(H) 70 - 199 mg/dL [facility] Comment: Interpretive Data Fasting glucose [...] 2017. Calcium 9.2 8.5 - 10.3 mg/dL [facility] Bilirubin, total 0.8 0.1 - 1.2 mg/dL [facility] Protein, pl 6.5 6.5 - 8.5 g/dL [facility] Albumin 3.5 3.5 - 5.0 g/dL [facility] Alk phos 76 40 - 130 Units/L [facility] ALT 28 7 - 55 Units/L [facility] AST 18 10 - 50 Units/L [facility] Blood specimen (specimen) 11/22/2018 11:20 AM SALES AND MERCHANDISING REPRESENTATIVE 11/22/2018 11:42 AM SALES AND MERCHANDISING REPRESENTATIVE Narrative [facility] - 11/22/2018 12:09 PM SALES AND MERCHANDISING REPRESENTATIVE us Louise Resendiz NP LAB BLOOD ORDERABLES Final R esult [facility] Department [place] [address] * (ABNORMAL) CBC with auto differential (11/22/2018 11:20 AM SALES AND MERCHANDISING REPRESENTATIVE) WBC 13.5(H) 3.8 - 9.9 K/cumm [facility] Hgb 17.1 13.0 - 17.5 g/dL [facility] Hct 48.3 38.9 - 50.3 % [facility] Plt 151 150 - 400 K/cumm [facility] MPV 11.6 9.1 - 12.3 fL [facility] RBC 4.67 4.30 - 5.80 M/cumm [facility] MCV 103.4(H) 81.3 - 96.4 fL [facility] MCH 36.6(H) 27.1 - 33.3 pg [facility] MCHC 35.4 32.3 - 35.7 g/dL [facility] RDW CV 13.3 11.1 - 14.9 % [facility] RDW SD 50.8(H) 35.7 - 48.1 fL [facility] NRBC abs 0.00 0.00 - 0.01 K/cumm [facility] Blood specimen (specimen) 11/22/2018 11:20 AM SALES AND MERCHANDISING REPRESENTATIVE 11/22/2018 11:41 AM SALES AND MERCHANDISING REPRESENTATIVE Narrative [facility] - 11/22/2018 11:52 AM SALES AND MERCHANDISING REPRESENTATIVE us Louise Resendiz NP LAB BLOOD ORDERABLES Final R esult [facility] Department of [place], [place] [id number] documented in this encounter Visit Diagnoses Diagnosis Sinusitis- Primary Unspecified sinusitis (chronic) Dehydration Chemotherapy induced nausea and vomiting Infection Unspecified infectious and parasitic diseases Type 2 diabetes mellitus with hyperosmolarity without coma, with long-term current use of insulin (HCC) Electrolyte imbalance Electrolyte and fluid disorders not elsewhere classified 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) Type 2 diabetes mellitus with hyperglycemia, with long-term current use of insulin (HCC) 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) Type 2 diabetes mellitus (HCC) Pure hypercholesterolemia Vitamin D deficiency COPD, severe (HCC) 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) DVT (deep venous thrombosis) (CMS/HCC) (HCC) Acute venous embolism and thrombosis of unspecified deep vessels of lower extremity Depressed mood documented in this encounter Administered Medications Inactive Administered Medications - up to 3 most recent administrations Medication Order MAR Action Action Date Dose Rate Site acetaminophen (TYLENOL) tablet 650 mg 650 mg, oral, Every 4 hours PRN, blood product administration, Starting on 11/22/18 at 1525, Administer acetaminophen and diphenhydrAMINE (if both ordered) together for prophylaxis of infusion reactions., Indications: Prophylaxis Transfusion ReactionIndications:Prophylaxis Transfusion Reaction Given 11/22/2018 5:51 PM SALES AND MERCHANDISING REPRESENTATIVE 650 mg acyclovir (ZOVIRAX) tablet 400 mg 400 mg, oral, Every 8 hours, First dose on 11/22/18 at 1815, Indications: Prophylaxis, MedicalIndications:Prophylaxis, Medical Given 11/25/2018 5:29 PM SALES AND MERCHANDISING REPRESENTATIVE 400 mg Given 11/25/2018 8:09 AM SALES AND MERCHANDISING REPRESENTATIVE 400 mg Given 11/25/2018 2:14 AM SALES AND MERCHANDISING REPRESENTATIVE 400 mg albuterol (PROVENTIL,VENTOLIN) 2.5 mg /3 mL (0.083 %) nebulizer solution 2.5 mg 2.5 mg, nebulization, 4 times daily (supervisor correspondence section), First dose on Sat11/24/18 at 1200 Given 11/25/2018 4:57 PM SALES AND MERCHANDISING REPRESENTATIVE 2.5 mg Given 11/25/2018 1:07 PM SALES AND MERCHANDISING REPRESENTATIVE 2.5 mg Given 11/25/2018 8:20 AM SALES AND MERCHANDISING REPRESENTATIVE 2.5 mg albuterol (PROVENTIL,VENTOLIN) 2.5 mg/0.5 mL nebulizer solution 5 mg 5 mg, nebulization, 4 times daily (supervisor correspondence section), First dose on 11/22/18 at 1900 Given 11/24/2018 8:34 AM SALES AND MERCHANDISING REPRESENTATIVE 5 mg Given 11/23/2018 8:02 PM SALES AND MERCHANDISING REPRESENTATIVE 5 mg Given 11/23/2018 11:52 AM SALES AND MERCHANDISING REPRESENTATIVE 5 mg atorvastatin (LIPITOR) tablet 40 mg 40 mg, oral, Daily, First dose on 11/22/18 at 1815 Given 11/25/2018 8:09 AM SALES AND MERCHANDISING REPRESENTATIVE 40 mg Given 11/24/2018 8:18 AM SALES AND MERCHANDISING REPRESENTATIVE 40 mg Given 11/23/2018 9:11 AM SALES AND MERCHANDISING REPRESENTATIVE 40 mg cefepime (MAXIPIME) 1000 mg/10 mL in sterile water (premix) 1,000 mg 1,000 mg, intravenous, at 20 mL/hr, Administer over 30 Minutes, Once, On 11/22/18 at 1310, For 1 dose, Indications: Sepsis Syndrome, FeverIndications:Sepsis Syndrome,Fever New Bag 11/22/2018 1:01 PM SALES AND MERCHANDISING REPRESENTATIVE 1,000 mg 20 mL/hr cefepime (MAXIPIME) 1000 mg/10 mL in sterile water (premix) 1,000 mg 1,000 mg, intravenous, at 20 mL/hr, Administer over 30 Minutes, Every 8 hours scheduled, First dose on Sat11/23/18 at 1400, Indications: Neutropenic FeverIndications:Neutropenic Fever New Bag 11/24/2018 5:06 AM SALES AND MERCHANDISING REPRESENTATIVE 1,000 mg 20 mL/hr New Bag 11/23/2018 9:54 PM SALES AND MERCHANDISING REPRESENTATIVE 1,000 mg 20 mL/hr New Bag 11/23/2018 5:38 PM SALES AND MERCHANDISING REPRESENTATIVE 1,000 mg 20 mL/hr dextrose (concentrated solution) 50 % CONCENTRATED solution 25 g 25 g, intravenous, Administer over 2 Minutes, Every 15 min PRN, low blood sugar, blood glucose less than 50 mg/dL AND decreased level of consciousness., Starting on 11/22/18 at 1624, After treatment for hypoglycemia, recheck BG followed by treatment every 15 minutes until the BG is greater than 100 mg/dL. Then check BG 1 hour post treatment. If BG is less than 100 mg/dL, repeat Q15 minute BG checks and treatment. Call MD for each episode of hypoglycemia., Indications: hypoglycemic disorderIndications:hypoglycemic disorder dextrose (concentrated solution) 50 % CONCENTRATED solution 25 g 25 g, intravenous, Administer over 2 Minutes, Every 15 min PRN, low blood sugar, blood glucose less than 50 mg/dL AND decreased level of consciousness., Starting on Sat11/24/18 at 0751, After treatment for hypoglycemia, recheck BG followed [...] UNABLE to swallow/take PO glucose/juice., Starting on 11/22/18 at 1624, After treatment for hypoglycemia, recheck BG followed [...] UNABLE to swallow/take PO glucose/juice., Starting on Sat11/24/18 at 0751, After treatment for hypoglycemia, recheck BG followed [...] glucose less than 70 mg/dL, Starting on 11/22/18 at 1624, If patient is alert and able to [...] Call MD for each episode of hypoglycemia. DOOR 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 STATES GLUTOSE-15 CONTAINS GLUCOSE 40% W/W (50% W/V), Indications: hypoglycemic disorderIndications:hypoglycemic disorder dextrose (GLUTOSE) 40 % gel 15 g 15 g, oral, Every 15 min PRN, low blood sugar, blood glucose less than 70 mg/dL, Starting on Sat11/24/18 at 0751, If patient is alert and able to [...] Call MD for each episode of hypoglycemia. DOOR 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 STATES GLUTOSE-15 CONTAINS GLUCOSE 40% W/W (50% W/V), Indications: hypoglycemic disorderIndications:hypoglycemic disorder fludrocortisone tablet 0.1 mg 0.1 mg, oral, 2 times daily, First dose on Sat11/22/18 at 2100 Given 11/25/2018 8:09 AM SALES AND MERCHANDISING REPRESENTATIVE 0.1 mg Given 11/24/2018 8:16 PM SALES AND MERCHANDISING REPRESENTATIVE 0.1 mg Given 11/24/2018 8:18 AM SALES AND MERCHANDISING REPRESENTATIVE 0.1 mg fluticasone-salmeterol (ADVAIR DISKUS) 100-50 mcg/dose diskus inhaler 1 puff 1 puff, inhalation, 2 times daily (supervisor correspondence section), First dose on Sat11/22/18 at 2000, Rinse mouth with water after use. Do not swallow. Given 11/24/2018 8:34 AM SALES AND MERCHANDISING REPRESENTATIVE 1 puff Given 11/23/2018 8:02 PM SALES AND MERCHANDISING REPRESENTATIVE 1 puff Given 11/23/2018 9:10 AM SALES AND MERCHANDISING REPRESENTATIVE 1 puff fluticasone-salmeterol (ADVAIR DISKUS) 100-50 mcg/dose diskus inhaler 1 puff 1 puff, inhalation, 2 times daily, First dose (after last modification) on Sat11/24/18 at 2100, NURSING TO ADMINISTER Rinse mouth with water after use. Do not swallow. Given 11/25/2018 8:14 AM SALES AND MERCHANDISING REPRESENTATIVE 1 puff Given 11/24/2018 8:18 PM SALES AND MERCHANDISING REPRESENTATIVE 1 puff gabapentin (NEURONTIN) capsule 300 mg 300 mg, oral, Nightly PRN, insomnia, leg pain, Starting on 11/22/18 at 1734 Given 11/24/2018 8:49 PM SALES AND MERCHANDISING REPRESENTATIVE 300 mg Given 11/23/2018 11:18 PM SALES AND MERCHANDISING REPRESENTATIVE 300 mg glucagon injection 1 mg 1 mg, intramuscular, Administer over 1 Minutes, Every 30 min PRN, low blood sugar, blood glucose less than 70 mg/dL AND no IV access AND unable to take PO glucose/jiuce., Starting on 11/22/18 at 1624, After Glucagon is administered, position patient on [...] MD for each episode of hypoglycemia., Indications: HypoglycemiaIndications:Hypo glycemia glucagon injection 1 mg 1 mg, intramuscular, Administer over 1 Minutes, Every 30 min PRN, low blood sugar, blood glucose less than 70 mg/dL AND no IV access AND unable to take PO glucose/jiuce., Starting on Sat11/24/18 at 0751, After Glucagon is administered, position patient on [...] MD for each episode of hypoglycemia., Indications: HypoglycemiaIndications:Hypo glycemia insulin glargine (LANTUS) injection 13 Units 13 Units (rounded from 13.34 Units = 0.2 Units/kg ? 66.7 kg), subcutaneous, Every morning, First dose on Sat11/24/18 at 0900, Do not mix with other insulins, Indications: Diabetes MellitusIndications:Diabetes Mellitus Given 11/25/2018 8:05 AM SALES AND MERCHANDISING REPRESENTATIVE 13 Units Right Lower Abdomen Given 11/24/2018 8:15 AM SALES AND MERCHANDISING REPRESENTATIVE 13 Units Le ft Lower Abdomen insulin lispro (HumaLOG) injection 1-4 Units 1-4 Units, subcutaneous, Nightly, First dose on 11/22/18 at 2100, Blood Sugar High Dose PM - PO patients 139 or less No insulin 140 - 175 1 unit 176 - 200 2 units 201 - 250 3 units 251 - 299 4 units Greater than 299 Call MD for hyperglycemia management instructions Do NOT hold for NPO status., Indications: Diabetes MellitusIndications:Diabetes Mellitus Given 11/23/2018 9:54 PM SALES AND MERCHANDISING REPRESENTATIVE 4 Units Left Upper Arm Given 11/22/2018 11:16 PM SALES AND MERCHANDISING REPRESENTATIVE 3 Units R ight Upper Arm insulin lispro (HumaLOG) injection 1-7 Units 1-7 Units, subcutaneous, 3 times daily with meals, First dose on 11/22/18 at 1800, Blood Sugar High Dose meal time - PO patients 139 or less No insulin 140 - 175 2 unit 176 - 200 3 unit 201 - 250 5 units 251 - 299 7 units Greater than 299 Call MD for hyperglycemia management instructions Do NOT hold for NPO status., Indications: Diabetes MellitusIndications:Diabetes Mellitus Given 11/25/2018 5:30 PM SALES AND MERCHANDISING REPRESENTATIVE 7 Units Right Lower Abdomen Given 11/25/2018 12:35 PM SALES AND MERCHANDISING REPRESENTATIVE 2 Units L eft Lower Abdomen Given 11/25/2018 8:05 AM SALES AND MERCHANDISING REPRESENTATIVE 7 Units Ri ght Lower Abdomen insulin lispro (HumaLOG) injection 12 Units 12 Units, subcutaneous, Once, On 11/22/18 at 1320, For 1 dose, Indications: HyperglycemiaIndications:Hyp erglycemia Given 11/22/2018 1:03 PM SALES AND MERCHANDISING REPRESENTATIVE 12 Units Right Upper Abdomen insulin lispro (HumaLOG) injection 12 Units 12 Units, subcutaneous, Once, On 11/24/18 at 0830, For 1 dose, insteasd of AM slide and premeal. Give lantus now as well Given 11/24/2018 8:14 AM SALES AND MERCHANDISING REPRESENTATIVE 12 Units Left Lower Abdomen insulin lispro (HumaLOG) injection 5 Units 5 Units, subcutaneous, 3 times daily with meals, First dose on 11/23/18 at 1230, Administer pre-meal doses when pts food tray arrives in room. Do not administer pre-meal doses to NPO patients. Given 11/25/2018 5:30 PM SALES AND MERCHANDISING REPRESENTATIVE 5 Units Right Lower Abdomen Given 11/25/2018 12:35 PM SALES AND MERCHANDISING REPRESENTATIVE 5 Units L eft Lower Abdomen Given 11/25/2018 8:05 AM SALES AND MERCHANDISING REPRESENTATIVE 5 Units Ri ght Lower Abdomen ioversol (OPTIRAY 350) syringe syringe 100 mL 100 mL, intravenous, Once in imaging, contrast, Starting on Sat11/22/18 at 1341, For 1 dose Given 11/22/2018 1:43 PM SALES AND MERCHANDISING REPRESENTATIVE 100 mL levoFLOXacin (LEVAQUIN) tablet 750 mg 750 mg, oral, Daily (early AM), First dose on Sat11/22/18 at 1655, For 5 doses, Give 2 hrs before or 2 hrs after MVI, antacids, or other products containing sucralfate, magnesium, aluminum, iron, or zinc. May be taken without regard to meals., Indications: Upper Respiratory/HEENT InfectionIndications:Upper Respiratory/HEENT Infection Given 11/23/2018 4:48 AM SALES AND MERCHANDISING REPRESENTATIVE 750 mg Given 11/22/2018 5:48 PM SALES AND MERCHANDISING REPRESENTATIVE 750 mg levoFLOXacin (LEVAQUIN) tablet 750 mg 750 mg, oral, Daily (early AM), First dose on Sat11/25/18 at 0600, Give 2 hrs before or 2 hrs after MVI, antacids, or other products containing sucralfate, magnesium, aluminum, iron, or zinc. May be taken without regard to meals., Indications: Upper Respiratory/HEENT InfectionIndications:Upper Respiratory/HEENT Infection Given 11/25/2018 5:27 AM SALES AND MERCHANDISING REPRESENTATIVE 750 mg magnesium sulfate 4 g/100 mL in water (premix) 4 g 4 g, intravenous, Administer over 90 Minutes, Every 4 hours PRN, magnesium replacement, Starting on Sat11/22/18 at 1531, For magnesium level of 1.2-1.5 mg/dL, Indications: hypomagnesemiaIndications:hypomagnesemia New Bag 11/25/2018 7:04 AM SALES AND MERCHANDISING REPRESENTATIVE 4 g metFORMIN XR (GLUCOPHAGE XR) tablet 500 mg 500 mg, oral, 2 times daily, First dose on Sat11/22/18 at 2100, Take with food Do not crush, chew, cut, dissolve, open or otherwise manipulate tablet/capsule. Given 11/23/2018 9:11 AM SALES AND MERCHANDISING REPRESENTATIVE 500 mg Given 11/22/2018 11:16 PM SALES AND MERCHANDISING REPRESENTATIVE 500 mg mycophenolate mofetil (CELLCEPT) tablet 1,000 mg 1,000 mg, oral, 2 times daily, First dose on Sat11/22/18 at 2100, Administer 2 hours before or 2 hours after all aluminum or magnesium containing products Do not crush, chew, cut, dissolve, open or otherwise manipulate tablet/capsule. Given 11/25/2018 8:09 AM SALES AND MERCHANDISING REPRESENTATIVE 1,000 m g Given 11/24/2018 8:17 PM SALES AND MERCHANDISING REPRESENTATIVE 1,000 mg Given 11/24/2018 8:18 AM SALES AND MERCHANDISING REPRESENTATIVE 1,000 mg nicotine (NICODERM CQ) 21 mg patch 24 hour 1 patch 1 patch, transdermal, Administer over 24 Hours, Daily, First dose on 11/22/18 at 1815 Medication Applied 11/25/2018 8:13 AM SALES AND MERCHANDISING REPRESENTATIVE 1 patch Right Arm Medication Applied 11/24/2018 9:14 AM SALES AND MERCHANDISING REPRESENTATIVE 1 patch Left Arm Medication Applied 11/23/2018 9:11 AM SALES AND MERCHANDISING REPRESENTATIVE 1 patch Behind Left Ear ofloxacin (OCUFLOX) 0.3 % ophthalmic solution 1 drop 1 drop, each eye, 4 times daily, First dose on 11/22/18 at 2100 Given 11/25/2018 5:31 PM SALES AND MERCHANDISING REPRESENTATIVE 1 drop Given 11/25/2018 12:32 PM SALES AND MERCHANDISING REPRESENTATIVE 1 drop Given 11/25/2018 8:10 AM SALES AND MERCHANDISING REPRESENTATIVE 1 drop ondansetron (ZOFRAN) injection 8 mg 8 mg, intravenous, Administer over 2 Minutes, Once, On 11/22/18 at 1155, For 1 doseIndications:Chemotherapy induced nausea and vomiting Given 11/22/2018 11:34 AM SALES AND MERCHANDISING REPRESENTATIVE 8 mg predniSONE (DELTASONE) tablet 10 mg 10 mg, oral, 2 times daily, First dose on 11/22/18 at 2100 Given 11/25/2018 8:09 AM SALES AND MERCHANDISING REPRESENTATIVE 10 mg Given 11/24/2018 8:17 PM SALES AND MERCHANDISING REPRESENTATIVE 10 mg Given 11/24/2018 8:18 AM SALES AND MERCHANDISING REPRESENTATIVE 10 mg rivaroxaban (XARELTO) tablet 20 mg 20 mg, oral, Daily with dinner, First dose on 11/22/18 at 1815, Administer doses greater than or equal to 15 mg/day with food; doses of 10 mg/day may be administered without regard to meals. If on heparin infusion, discontinue heparin infusion upon first administration of rivaroxaban., Indications: Venous ThrombosisIndications:Venous Thrombosis Given 11/25/2018 5:30 PM SALES AND MERCHANDISING REPRESENTATIVE 20 m g Given 11/24/2018 5:50 PM SALES AND MERCHANDISING REPRESENTATIVE 20 mg Given 11/23/2018 5:38 PM SALES AND MERCHANDISING REPRESENTATIVE 20 mg sod phos,di- & mono-K phos mono (JCV-YR-MQKQXMT) tablet 500 mg 500 mg, oral, Once, On 11/22/18 at 1320, For 1 doseIndications:Electrolyte imbalance Given 11/22/2018 1:[address] 500 mg sodium chloride 0.9 % irrigation 30 mL 30 mL, swish & spit, 4 times daily, First dose on Sat11/22/18 at 1700, Use as mouth rinse for oral care. Given 11/25/2018 5:31 PM SALES AND MERCHANDISING REPRESENTATIVE 30 mL Given 11/25/2018 12:31 PM SALES AND MERCHANDISING REPRESENTATIVE 30 mL Given 11/25/2018 8:10 AM SALES AND MERCHANDISING REPRESENTATIVE 30 mL sodium chloride 0.9% bolus 1,000 mL 1,000 mL, intravenous, at 500 mL/hr, Administer over 2 Hours, Once, On 11/22/18 at 1115, For 1 doseIndications:Dehydration New Bag 11/22/2018 11:30 AM SALES AND MERCHANDISING REPRESENTATIVE 1,000 mL 500 mL/hr sodium chloride 0.9% flush 0.5-20 mL 0.5-20 mL, intra-catheter, Every 8 hours scheduled, First dose on Sat11/22/18 at 1605, Flush volume based on line type and size. Given 11/25/2018 5:40 AM SALES AND MERCHANDISING REPRESENTATIVE 20 mL Given 11/24/2018 8:19 PM SALES AND MERCHANDISING REPRESENTATIVE 10 mL Given 11/24/2018 2:16 PM SALES AND MERCHANDISING REPRESENTATIVE 10 mL sodium chloride-sodium bicarbonate (NEILMED SINUS RINSE, AYR) nasal wash kit 1 packet 1 packet, each nostril, Daily, First dose on Sat11/24/18 at 1230 Given 11/25/2018 8:10 AM SALES AND MERCHANDISING REPRESENTATIVE 1 packet Given 11/24/2018 2:34 PM SALES AND MERCHANDISING REPRESENTATIVE 1 packet sulfamethoxazole-trimethoprim (BACTRIM,SEPTRA) 800-160 mg per tablet 320 mg of trimethoprim 320 mg of trimethoprim, oral, User Specified (2 times per day on Sat), First dose on Sat11/24/18 at 0900, Indications: Pneumocystis/Toxoplasmosis ProphylaxisIndications:Pneumoc ystis/Toxoplasmosis Prophylaxis Given 11/24/2018 8:17 PM SALES AND MERCHANDISING REPRESENTATIVE 320 mg of trimethoprim Given 11/24/2018 8:18 AM SALES AND MERCHANDISING REPRESENTATIVE 320 mg of trimethoprim tacrolimus (PROGRAF) capsule 0.5 mg 0.5 mg, oral, Daily, First dose on Sat11/23/18 at 0900, Avoid grapefruit juice Given 11/23/2018 9:11 AM SALES AND MERCHANDISING REPRESENTATIVE 0.5 m g tacrolimus (PROGRAF) capsule 0.5 mg 0.5 mg, oral, Every other day, First dose (after last modification) on Sat11/25/18 at 0900, Avoid grapefruit juice Given 11/25/2018 8:09 AM SALES AND MERCHANDISING REPRESENTATIVE 0.5 m g vancomycin 1000 mg/200 mL in dextrose 5% (premix) 1,000 mg 1,000 mg, intravenous, Administer over 60 Minutes, Once, On 11/22/18 at 1310, For 1 dose, Indications: INFECTIONIndications:INFECTION New Bag 11/22/2018 1:12 PM SALES AND MERCHANDISING REPRESENTATIVE 1,000 mg vancomycin 1000 mg/200 mL in dextrose 5% (premix) 1,000 mg 1,000 mg, intravenous, Administer over 60 Minutes, Every 12 hours, First dose on 11/23/18 at 1230, Indications: Neutropenic FeverIndications:Neutropenic Fever New Bag 11/24/2018 12:11 AM SALES AND MERCHANDISING REPRESENTATIVE 1,000 mg New Bag 11/23/2018 5:37 PM SALES AND MERCHANDISING REPRESENTATIVE 1,000 mg documented in this encounter Discontinued Medications Medication Sig Discontinue Reason Start Date End Da te HUMALOG KWIKPEN INSULIN 100 unit/mL insulin penIndications: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 12/21/2016 11/24/2018 pen needle, diabetic 31 gauge x 5/16 needle Use to inject 1-4 times daily as directed. 11/24/2018 11/24/2018 sodium chloride-sodium bicarbonate (NEILMED SINUS RINSE, AYR) packet with rinse device Administer 240 mL (1 packet total) into each nostril daily as needed (sinus congestion). 11/24/2018 11/24/2018 levoFLOXacin (LEVAQUIN) 750 mg tabletIndications:Uppe r Respiratory/HEENT Infection Take 1 tablet (750 mg total) by mouth bench manager before breakfast for 10 days. 11/25/2018 11/24/2018 HUMALOG KWIKPEN INSULIN 100 unit/mL insulin penIndications:type 2 diabetes mellitus Inject 2-4 Units under the skin 3 (three) times a day before meals. 11/24/2018 11/24/2018 metFORMIN XR (GLUCOPHAGE XR) 500 mg 24 hr tabletIndications:AML (acute myeloid leukemia) in remission (HCC) Take 2 tablets (1,000 mg total) by mouth 2 (two) times a day. 11/24/2018 11/24/2018 gabapentin (NEURONTIN) 100 mg capsuleIndications:AML (acute myeloid leukemia) in remission (HCC) Take 1 capsule by mouth as needed. Stop Taking at Discharge 05/31/2017 11/25/2018 nicotine (NICODERM CQ) 7 mgIndications:AML (acute myeloid leukemia) in remission (HCC) Place on the skin. 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 Stop Taking at Discharge 06/24/2018 11/25/2018 gabapentin (NEURONTIN) 300 mg capsule Take 300 mg by mouth as needed. Stop Taking at Discharge 11/25/2018 documented as of this encounter Active and Recently Administered Medications Times are shown in SALES AND MERCHANDISING REPRESENTATIVE. Scheduled Medication Order 11/23/2018 11/24/2018 11/25/2018 acyclovir (ZOVIRAX) tablet 400 mg 400 mg, oral, Every 8 hours, First dose on 11/22/18 at 1815, Indications: Prophylaxis, Medical 0448 (Given - Provider: Cruz Gustafson RN)1002 (Given - Provider: Dennis Crow, BECKI)1738 (Given - Provider: Dennis Crow, BECKI) 0505 (Given - Provider: Cruz Gustafson RN)1026 (Given - Provider: Ainsley Alvarenga RN)1750 (Given - Provider: Ainsley Alvarenga, BECKI) 0214 (Given - Provider: Nam Sandy RN)0809 (Given - Provider: Sidra Vaughn RN)1041 (Not Given - Provider: Sidra Vaughn RN - Reason: Other - Comment: already given this AM- see JAN)1729 (Given - Provider: Sidra Vaughn, BECKI) albuterol (PROVENTIL,VENTOLIN) 2.5 mg /3 mL (0.083 %) nebulizer solution 2.5 mg 2.5 mg, nebulization, 4 times daily (supervisor correspondence section), First dose on Sat11/24/18 at 1200 1213 (Not Given - Provider: Dayron Armijo RRT - Reason: Patient not available)1546 (Not Given - Provider: Prateek Padilla-RT - Reason: Patient not available - Comment: checked twice.@3pm and 3:45pm)204 (Given - Provider: Narcisa Mora, BRANDEN) 0820 (Given - Provider: Dayron Armijo, BRANDEN)1307 (Given - Provider: Dayron Armijo, BRANDEN)1657 (Given - Provider: Page Marlow, BRANDEN) albuterol (PROVENTIL,VENTOLIN) 2.5 mg/0.5 mL nebulizer solution 5 mg (CANCELED) 5 mg, nebulization, 4 times daily (supervisor correspondence section), First dose on 11/22/18 at 1900 0800 (Not Given - Provider: Sarah Freitas RRT - Reason: Other - Comment: emergent call to a pt's room)1152 (Given - Provider: Cruz Potter, BRANDEN)1707 (Not Given - Provider: Sarah Freitas RRT - Reason: Patient not available)2001 (Given - Provider: Hilda Peters, BRANDEN) 0834 (Given - Provider: Dayron Armijo RRT) atorvastatin (LIPITOR) tablet 40 mg 40 mg, oral, Daily, First dose on Sat11/22/18 at 1815 0911 (Given - Provider: Dennis Crow, BECKI) 0818 (Given - Provider: Ainsley Alvarenga, BECKI) 0809 (Given - Provider: Sidra Vaughn, BECKI) cefepime (MAXIPIME) 1000 mg/10 mL in sterile water (premix) 1,000 mg (CANCELED) 1,000 mg, intravenous, at 20 mL/hr, Administer over 30 Minutes, Every 8 hours scheduled, First dose on Sat11/23/18 at 1400, Indications: Neutropenic Fever 1738 (New Bag - Provider: Dennis Crow BECKI)1808 (Due: Stopped - Provider: Dennis Crow, BECKI)2154 (New Bag - Provider: Cruz Gustafson, RN)2224 (Stopped - Provider: Cruz Gustafson, RN) 0506 (New Bag - Provider: Cruz Gustafson, RN)0536 (Stopped - Provider: Cruz Gustafson, RN) ergocalciferol (VITAMIN D) capsule 50,000 Units 50,000 Units, oral, Weekly, First dose on 11/22/18 at 1815 fludrocortisone tablet 0.1 mg 0.1 mg, oral, 2 times daily, First dose on 11/22/18 at 2100 0911 (Given - Provider: Dennis Crow RN)1999 (Given - Provider: Cruz Gustafson, BECKI) 0818 (Given - Provider: Ainsley Alvarenga RN)2015 (Given - Provider: Nam Sandy, BECKI) 0809 (Given - Provider: Sidra Vaughn, BECKI) fluticasone-salmeterol (ADVAIR DISKUS) 100-50 mcg/dose diskus inhaler 1 puff (CANCELED) 1 puff, inhalation, 2 times daily (supervisor correspondence section), First dose on 11/22/18 at 2000, Rinse mouth with water after use. Do not swallow. 0910 (Given - Provider: Dennis Crow, BECKI)2001 (Given - Provider: Hilda Peters, PLASTIC STRAIGHTENING ROLL OPERATOR) 0834 (Given - Provider: Dayron Armijo, BRANDEN) fluticasone-salmeterol (ADVAIR DISKUS) 100-50 mcg/dose diskus inhaler 1 puff 1 puff, inhalation, 2 times daily, First dose (after last modification) on Sat11/24/18 at 2100, NURSING TO ADMINISTER Rinse mouth with water after use. Do not swallow. 2017 (Given - Provider: Nam Sandy, BECKI) 0814 (Given - Provider: Sidra Vaughn, BECKI) insulin glargine (LANTUS) injection 13 Units 13 Units (rounded from 13.34 Units = 0.2 Units/kg ? 66.7 kg), subcutaneous, Every morning, First dose on Sat11/24/18 at 0900, Do not mix with other insulins, Indications: Diabetes Mellitus 0815 (Given - Provider: Ainsley Alvarenga, BECKI) 0805 (Given - Provider: Sidra Vaughn, RN) insulin lispro (HumaLOG) injection 1-4 Units 1-4 Units, subcutaneous, Nightly, First dose on 11/22/18 at 2100, Blood Sugar High Dose PM - PO patients 139 or less No insulin 140 - 175 1 unit 176 - 200 2 units 201 - 250 3 units 251 - 299 4 units Greater than 299 Call MD for hyperglycemia management instructions Do NOT hold for NPO status., Indications: Diabetes Mellitus 2153 (Given - Provider: Cruz Gustafson RN) 2000 (Not Given - Provider: Nadia Tobar RN - Reason: Other) insulin lispro (HumaLOG) injection 1-7 Units 1-7 Units, subcutaneous, 3 times daily with meals, First dose on 11/22/18 at 1800, Blood Sugar High Dose meal time - PO patients 139 or less No insulin 140 - 175 2 unit 176 - 200 3 unit 201 - 250 5 units 251 - 299 7 units Greater than 299 Call MD for hyperglycemia management instructions Do NOT hold for NPO status., Indications: Diabetes Mellitus 1002 (Given - Provider: Dennis Crow, BECKI)1240 (Given - Provider: Dennis Crow RN)1739 (Given - Provider: Dennis Crow, BECKI) 0815 (Not Given - Provider: Ainsley Alvarenga RN - Reason: See Provider Order)1415 (Given - Provider: Ainsley Alvarenga RN)2017 (Given - Provider: Nam Sandy RN) 0805 (Given - Provider: Sidra Vaughn, RN)1235 (Given - Provider: Sidra Vaughn, RN)1730 (Given - Provider: Sidra Vaughn, RN) insulin lispro (HumaLOG) injection 12 Units (COMPLETED) 12 Units, subcutaneous, Once, On 11/24/18 at 0830, For 1 dose, insteasd of AM slide and premeal. Give lantus now as well 0814 (Given - Provider: Ainsley Alvarenga, BECKI) insulin lispro (HumaLOG) injection 5 Units 5 Units, subcutaneous, 3 times daily with meals, First dose on 11/23/18 at 1230, Administer pre-meal doses when pts food tray arrives in room. Do not administer pre-meal doses to NPO patients. 1239 (Given - Provider: Dennis Crow RN)1738 (Given - Provider: Dennis Crow, BECKI) 0815 (Not Given - Provider: Ainsley Alvarenga RN - Reason: See Provider Order)1415 (Given - Provider: Ainsley Alvarenga RN)2017 (Given - Provider: Nam Sandy RN) 0805 (Given - Provider: Sidra Vaughn RN)1235 (Given - Provider: Sidra Vaughn, BECKI)1730 (Given - Provider: Sidra Vaughn RN) levoFLOXacin (LEVAQUIN) tablet 750 mg (CANCELED) 750 mg, oral, Daily (early AM), First dose on Sat11/22/18 at 1655, For 5 doses, Give 2 hrs before or 2 hrs after MVI, antacids, or other products containing sucralfate, magnesium, aluminum, iron, or zinc. May be taken without regard to meals., Indications: Upper Respiratory/HEENT Infection 0448 (Given - Provider: Cruz Gustafson RN) levoFLOXacin (LEVAQUIN) tablet 750 mg 750 mg, oral, Daily (early AM), First dose on Sat11/25/18 at 0600, Give 2 hrs before or 2 hrs after MVI, antacids, or other products containing sucralfate, magnesium, aluminum, iron, or zinc. May be taken without regard to meals., Indications: Upper Respiratory/HEENT Infection 0527 (Given - Provider: Nam Sandy RN) metFORMIN XR (GLUCOPHAGE XR) tablet 500 mg (CANCELED) 500 mg, oral, 2 times daily, First dose on Sat11/22/18 at 2100, Take with food Do not crush, chew, cut, dissolve, open or otherwise manipulate tablet/capsule. 0911 (Given - Provider: Dennis Crow, BECKI) mycophenolate mofetil (CELLCEPT) tablet 1,000 mg 1,000 mg, oral, 2 times daily, First dose on Sat11/22/18 at 2100, Administer 2 hours before or 2 hours after all aluminum or magnesium containing products Do not crush, chew, cut, dissolve, open or otherwise manipulate tablet/capsule. 0911 (Given - Provider: Dennis Crow, BECKI)1958 (Given - Provider: Cruz Gustafson RN) 0818 (Given - Provider: Ainsley Alvarenga, BECKI)2016 (Given - Provider: Nam Sandy, RN) 0809 (Given - Provider: Sidra Vaughn, BECKI) nicotine (NICODERM CQ) 21 mg patch 24 hour 1 patch 1 patch, transdermal, Administer over 24 Hours, Daily, First dose on 11/22/18 at 1815 0911 (Medication Applied - Provider: Dennis Crow RN) 0913 (Medication Removed - Provider: Ainsley Alvarenga RN)0914 (Medication Applied - Provider: Ainsley Alvarenga RN) 0811 (Medication Removed - Provider: Sidra Vaughn, BECKI)0813 (Medication Applied - Provider: Sidra Vaughn, BECKI)1951 (Due: Medication Removed - Provider: Automatic Discharge Provider - Comment: Time automatically adjusted from order being discontinued) ofloxacin (OCUFLOX) 0.3 % ophthalmic solution 1 drop 1 drop, each eye, 4 times daily, First dose on 11/22/18 at 2100 0912 (Given - Provider: Dennis Crow RN)1239 (Given - Provider: Dennis Crow RN)1740 (Given - Provider: Dennis Crow, BECKI)1999 (Given - Provider: Cruz Gustafson RN) 0821 (Given - Provider: Ainsley Alvarenga, BECKI)1416 (Given - Provider: Ainsley Alvarenga, BECKI)1736 (Given - Provider: Ainsley Alvarenga, BECKI)2018 (Given - Provider: Nam Sandy, BECKI) 0810 (Given - Provider: Sidra Vaughn, BECKI)1232 (Given - Provider: Sidra Vaughn, BECKI)1731 (Given - Provider: Sidra Vaughn, BECKI) predniSONE (DELTASONE) tablet 10 mg 10 mg, oral, 2 times daily, First dose on 11/22/18 at 2100 0911 (Given - Provider: Dennis Crow, BECKI)1958 (Given - Provider: Cruz Gustafson RN) 0818 (Given - Provider: Ainsley Alvarenga, BECKI)2017 (Given - Provider: Nam Sandy, BECKI) 0809 (Given - Provider: Sidra Vaughn RN) rivaroxaban (XARELTO) tablet 20 mg 20 mg, oral, Daily with dinner, First dose on 11/22/18 at 1815, Administer doses greater than or equal to 15 mg/day with food; doses of 10 mg/day may be administered without regard to meals. If on heparin infusion, discontinue heparin infusion upon first administration of rivaroxaban., Indications: Venous Thrombosis 1738 (Given - Provider: Dennis Crow RN) 1750 (Given - Provider: Ainsley Alvarenga RN) 1730 (Given - Provider: Sidra Vaughn RN) sodium chloride 0.9 % irrigation 30 mL 30 mL, swish & spit, 4 times daily, First dose on 11/22/18 at 1700, Use as mouth rinse for oral care. 0911 (Given - Provider: Dennis Crow RN)1239 (Given - Provider: Dennis Crow RN)1739 (Given - Provider: Dennis Crow, BECKI)2100 (Given - Provider: Cruz Gustafson RN) 0820 (Given - Provider: Ainsley Alvarenga RN)1244 (Given - Provider: Ainsley Alvarenga RN)1736 (Given - Provider: Ainsley Alvarenga, BECKI)2018 (Given - Provider: Nam Sandy, BECKI) 0810 (Given - Provider: Sidra Vaughn RN)1231 (Given - Provider: Sidra Vaughn, BECKI)1731 (Given - Provider: Sidra Vaughn, RN) sodium chloride 0.9% flush 0.5-20 mL 0.5-20 mL, intra-catheter, Every 8 hours scheduled, First dose on 11/22/18 at 1605, Flush volume based on line type and size. 0913 (Given - Provider: Dennis Crow RN)1739 (Not Given - Provider: Dennis Crow RN - Reason: Patient/family refused)2200 (Not Given - Provider: Cruz Gustafson RN - Reason: Other - Comment: line in use) 0600 (Given - Provider: Cruz Gustafson, RN)1416 (Given - Provider: Ainsley Alvarenga RN)2019 (Given - Provider: Nam Sandy, BECKI) 0540 (Given - Provider: Nadia Tobar RN)1447 (Not Given - Provider: Sidra Vaughn, BECKI - Reason: Other - Comment: pt has peripheral IV and is being discharged home today) sodium chloride-sodium bicarbonate (NEILMED SINUS RINSE, AYR) nasal wash kit 1 packet 1 packet, each nostril, Daily, First dose on Sat11/24/18 at 1230 1434 (Given - Provider: Ainsley Alvarenga RN) 0810 (Given - Provider: Sidra Vaughn RN) sulfamethoxazole-trimeth oprim (BACTRIM,SEPTRA) 800-160 mg per tablet 320 mg of trimethoprim 320 mg of trimethoprim, oral, User Specified (2 times per day on Sat), First dose on Sat11/24/18 at 0900, Indications: Pneumocystis/Toxoplasmos is Prophylaxis 0818 (Given - Provider: Ainsley Alvarenga RN)2016 (Given - Provider: Nam Sandy RN) tacrolimus (PROGRAF) capsule 0.5 mg (CANCELED) 0.5 mg, oral, Daily, First dose on Sat11/23/18 at 0900, Avoid grapefruit juice 0911 (Given - Provider: Dennis Crow, BECKI) tacrolimus (PROGRAF) capsule 0.5 mg 0.5 mg, oral, Every other day, First dose (after last modification) on Sat11/25/18 at 0900, Avoid grapefruit juice 0809 (Given - Provider: Sidra Vaughn RN) vancomycin 1000 mg/200 mL in dextrose 5% (premix) 1,000 mg (CANCELED) 1,000 mg, intravenous, Administer over 60 Minutes, Every 12 hours, First dose on Sat11/23/18 at 1230, Indications: Neutropenic Fever 1737 (New Bag - Provider: Dennis Crow, BECKI)1837 (Due: Stopped - Provider: Dennis Crow RN) 0011 (New Bag - Provider: Cruz Gustafson, RN)0111 (Stopped - Provider: Cruz Gustafson, RN) PRN Medication Order 11/23/2018 11/24/2018 11/25/2018 acetaminophen (TYLENOL) tablet 650 mg 650 mg, oral, Every 4 hours PRN, blood product administration, Starting on 11/22/18 at 1525, Administer acetaminophen and diphenhydrAMINE (if both ordered) together for prophylaxis of infusion reactions., Indications: Prophylaxis Transfusion Reaction acetaminophen (TYLENOL) tablet 650 mg 650 mg, oral, Every 6 hours PRN, fever, Starting on 11/22/18 at 1525, Indications: Fever aluminum & magnesium gcclvemvv-typrceoqicc-hcf henhydramine-lidocaine (MAGIC MOUTHWASH) suspension 1-1-1 15 mL, swish & swallow, 4 times daily PRN, other, mucositis, Starting on 11/22/18 at 1525, Indications: Chemotherapy-Induced Mucositis bacitracin-polymyxin B (POLYSPORIN) 500-10,000 unit/gram ointment tube topical, Every 4 hours PRN, wound care, Starting on 11/22/18 at 1525, Apply to affected area: other, Indications: Minor Bacterial Skin Infections camphor-menthol (SARNA) 0.5-0.5 % lotion topical, Every 2 hours PRN, itching, Starting on 11/22/18 at 1525, Apply to affected area: other, Indications: Pruritus of Skin dextrose (concentrated solution) 50 % CONCENTRATED solution 25 g(Linked Group 1) 25 g, intravenous, Administer over 2 Minutes, Every 15 min PRN, low blood sugar, blood glucose less than 50 mg/dL AND decreased level of consciousness., Starting on 11/22/18 at 1624, After treatment for hypoglycemia, recheck BG followed by treatment every 15 minutes until the BG is greater than 100 mg/dL. Then check BG 1 hour post treatment. If BG is less than 100 mg/dL, repeat Q15 minute BG checks and treatment. Call MD for each episode of hypoglycemia., Indications: hypoglycemic disorder dextrose (concentrated solution) 50 % CONCENTRATED solution 25 g(Linked Group 2) 25 g, intravenous, Administer over 2 Minutes, Every 15 min PRN, low blood sugar, blood glucose less than 50 mg/dL AND decreased level of consciousness., Starting on Sat11/24/18 at 0751, After treatment for hypoglycemia, recheck BG followed [...] UNABLE to swallow/take PO glucose/juice., Starting on 11/22/18 at 1624, After treatment for hypoglycemia, recheck BG followed [...] UNABLE to swallow/take PO glucose/juice., Starting on Sat11/24/18 at 0751, After treatment for hypoglycemia, recheck BG followed [...] glucose less than 70 mg/dL, Starting on 11/22/18 at 1624, If patient is alert and able to [...] Call MD for each episode of hypoglycemia. DOOR 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 STATES GLUTOSE-15 CONTAINS GLUCOSE 40% W/W (50% W/V), Indications: hypoglycemic disorder dextrose (GLUTOSE) 40 % gel 15 g(Linked Group 2) 15 g, oral, Every 15 min PRN, low blood sugar, blood glucose less than 70 mg/dL, Starting on 11/24/18 at 0751, If patient is alert and able to [...] Call MD for each episode of hypoglycemia. DOOR 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 STATES GLUTOSE-15 CONTAINS GLUCOSE 40% W/W (50% W/V), Indications: hypoglycemic disorder gabapentin (NEURONTIN) capsule 300 mg 300 mg, oral, Nightly PRN, insomnia, leg pain, Starting on 11/22/18 at 1734 2318 (Given - Provider: Cruz Gustafson, RN) 2049 (Given - Provider: Nam Sandy RN) glucagon injection 1 mg 1 mg, intramuscular, Administer over 1 Minutes, Every 30 min PRN, low blood sugar, blood glucose less than 70 mg/dL AND no IV access AND unable to take PO glucose/jiuce., Starting on 11/22/18 at 1624, After Glucagon is administered, position patient on [...] for each episode of hypoglycemia., Indications: Hypoglycemia glucagon injection 1 mg 1 mg, intramuscular, Administer over 1 Minutes, Every 30 min PRN, low blood sugar, blood glucose less than 70 mg/dL AND no IV access AND unable to take PO glucose/jiuce., Starting on 11/24/18 at 0751, After Glucagon is administered, position patient on [...] for each episode of hypoglycemia., Indications: Hypoglycemia loperamide (IMODIUM) capsule 2 mg 2 mg, oral, Every 1 hour PRN, diarrhea, after each liquid stool (ensure that at least one C. diff assay is negative prior to initiating), Starting on 11/22/18 at 1525, Total loperamide dose should not exceed 16 mg in 24 hours., Indications: diarrhea magnesium sulfate 4 g/100 mL in water (premix) 4 g 4 g, intravenous, Administer over 90 Minutes, Every 4 hours PRN, magnesium replacement, Starting on 11/22/18 at 1531, For magnesium level of 1.2-1.5 mg/dL, Indications: hypomagnesemia 0704 (New Bag - Provider: Nam Sandy RN)0834 (Due: Stopped - Provider: Nam Sandy RN) magnesium sulfate 6 g in sodium chloride 0.9% 250 mL IVPB 6 g, intravenous, at 131 mL/hr, Administer over 120 Minutes, Every 4 hours PRN, magnesium replacement, Starting on 11/22/18 at 1531, For magnesium level less than 1.2 mg/dL and call/notify provider., Indications: hypomagnesemia polyvinyl alcohol (LIQUIFILM TEARS) 1.4 % ophthalmic solution 2 drop 2 drop, each eye, Every 4 hours PRN, dry eyes, Starting on 11/22/18 at 1525, Indications: Dry Eye potassium chloride 40 mEq/520 mL in sodium chloride 0.9% (premix) 40 mEq 40 mEq, intravenous, at 130 mL/hr, Administer over 4 Hours, Every 4 hours PRN, potassium replacement, Starting on 11/22/18 at 1531, 40 mEq X1 dose for potassium less than 2.6 mmol/L, call prescriber for additional orders; 40 mEq X2 doses for potassium 2.6-2.9 mmol/L, stat potassium level after 2nd dose; 40 mEq X2 doses for potassium 3-3.1 mmol/L; 40 mEq X1 dose for potassium 3.2-3.5 mmol/L (may use oral if tolerated)., Indications: hypokalemia potassium chloride ER (KLOR-CON,K-DUR) extended release tablet 40 mEq 40 mEq, oral, Every 4 hours PRN, potassium replacement, Starting on 11/22/18 at 1531, For potassium 3.2-3.5 mmol/L, give 40 mEq X1 dose (may use IV if oral not tolerated). Do not crush, chew, cut, dissolve, open or otherwise manipulate tablet/capsule., Indications: hypokalemia pramoxine (TRONOLANE) 1% cream rectal, 3 times daily PRN, hemorrhoids, Starting on 11/22/18 at 1525, Apply to affected area: other, Indications: Hemorrhoids sodium chloride (OCEAN) 0.65 % nasal spray 2 spray 2 spray, each nostril, Every 1 hour PRN, other, dryness, Starting on 11/22/18 at 1525, Indications: Dry Nose sodium chloride 0.9% flush 0.5-20 mL 0.5-20 mL, intra-catheter, As needed, line care, Starting on 11/22/18 at 1531, Flush volume based on line type and size. Flush before and after each use. sodium chloride 0.9% infusion 30 mL/hr, intravenous, Continuous PRN, KVO for medication administrations, Starting on 11/22/18 at 1525 sodium chloride 0.9% infusion 30 mL/hr, intravenous, Continuous PRN, Flush for blood product transfusions, Starting on 11/22/18 at 1525 white petrolatum-mineral oil (EUCERIN) cream topical, Every 2 hours PRN, dry skin, Starting on 11/22/18 at 1525, Apply to affected area: other, Indications: Dry Skin Linked Groups Order Group 1: dextrose (GLUTOSE) 40 % gel 15 gJump to med 15 g, oral, Every 15 min PRN, low blood sugar, blood glucose less than 70 mg/dL, Starting on 11/22/18 at 1624, If patient is alert and able to [...] Call MD for each episode of hypoglycemia. DOOR 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 STATES GLUTOSE-15 CONTAINS GLUCOSE 40% W/W (50% W/V), Indications: hypoglycemic disorder Or dextrose (D10W) 10% bolus 250 mLJump to med 250 mL, intravenous, at 1,000 mL/hr, Administer over 15 Minutes, Every 15 min PRN, blood glucose less than 70 mg/dL and UNABLE to swallow/take PO glucose/juice., Starting on 11/22/18 at 1624, After treatment for hypoglycemia, recheck BG followed by treatment every 15 minutes until the BG is greater than 100 mg/dL. Then check BG 1 hour post treatment. If BG is less than 100 mg/dL, repeat Q15 minute BG checks and treatment. Call MD for each episode of hypoglycemia., Indications: hypoglycemic disorder Or dextrose (concentrated solution) 50 % CONCENTRATED solution 25 gJump to med 25 g, intravenous, Administer over 2 Minutes, Every 15 min PRN, low blood sugar, blood glucose less than 50 mg/dL AND decreased level of consciousness., Starting on 11/22/18 at 1624, After treatment for hypoglycemia, recheck BG followed [...] glucose less than 70 mg/dL, Starting on Sat11/24/18 at 0751, If patient is alert and able to [...] Call MD for each episode of hypoglycemia. DOOR 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 STATES GLUTOSE-15 CONTAINS GLUCOSE 40% W/W (50% W/V), Indications: hypoglycemic disorder Or dextrose (D10W) 10% bolus 250 mLJump to med 250 mL, intravenous, at 1,000 mL/hr, Administer over 15 Minutes, Every 15 min PRN, blood glucose less than 70 mg/dL and UNABLE to swallow/take PO glucose/juice., Starting on Sat11/24/18 at 0751, After treatment for hypoglycemia, recheck BG followed by treatment every 15 minutes until the BG is greater than 100 mg/dL. Then check BG 1 hour post treatment. If BG is less than 100 mg/dL, repeat Q15 minute BG checks and treatment. Call MD for each episode of hypoglycemia., Indications: hypoglycemic disorder Or dextrose (concentrated solution) 50 % CONCENTRATED solution 25 gJump to med 25 g, intravenous, Administer over 2 Minutes, Every 15 min PRN, low blood sugar, blood glucose less than 50 mg/dL AND decreased level of consciousness., Starting on Sat11/24/18 at 0751, After treatment for hypoglycemia, recheck BG followed [...] Last Ordered Date First Ordered Date dextrose (concentrated solut ion) 50 % CONCENTRATED solution 25 g 2 11/24/2018 11/22/2018 dextrose (D10W) 10% bolus 250 mL 2 11/24/19 19 11/22/2018 dextrose (GLUTOSE) 40 % gel 15 g 2 11/24/19 19 11/22/2018 glucagon injection 1 mg 2 11/24/201803/2019 acetaminophen (TYLENOL) tablet 650 mg 1 03/2019 aluminum & magnesium vwpewrtmh-gvsyobpyuzx-hptvrohekjosbsh-lido aida (MAGIC MOUTHWASH) suspension 1-1-1 11/22/2018 bacitracin-polymyxin B (POLY SPORIN) 500-10,000 unit/gram ointment tube 1 11/22/2018 camphor-menthol (SARNA) 0.5-0.5 % lotion 1 11/22/2018 enoxaparin (LOVENOX) syringe 40 mg 1 2018 ergocalciferol (VITAMIN D) c apsule 50,000 Units 1 11/22/2018 loperamide (IMODIUM) capsule 2 mg 1 019 magnesium sulfate 6 g in sod ium chloride 0.9% 250 mL IVPB 1 11/22/2018 polyvinyl alcohol (LIQUIFILM TEARS) 1.4 % ophthalmic solution 2 drop 1 11/22/2018 potassium chloride 40 mEq/52 0 mL in sodium chloride 0.9% (premix) 40 mEq 1 11/22/2018 potassium chloride ER (KLOR- CON,K-DUR) extended release tablet 40 mEq 1 11/22/2018 pramoxine (TRONOLANE) 1% cream 1 11/22/2018 sodium chloride (OCEAN) 0.65 % nasal spray 2 spray 1 11/22/2018 sodium chloride 0.9% flush 0.5-20 mL 1 03/2019 sodium chloride 0.9% infusion 2 11/22/2018 white petrolatum-mineral oil (EUCERIN) cream 1 11/22/2018 Lab Orders Without Results Count Last Ordered D ate First Ordered Date POCT GLUCOSE DEVICE 6 11/24/2018 11/22/19 19 Consult Count Last Ordered Date First Orde red Date ANCILLARY ONCOLOGY SERVICES REQUEST 1 11/24 IP CONSULT TO CLINICAL ADMINISTRATIVE COORDINATOR 1 9 IP CONSULT TO ENT 1 11/23/2018 IP CONSULT TO NUTRITION SERVICES 1 11/22/19 19 Isolation Count Last Ordered Date First Orde red Date INITIATE DROPLET ISOLATION 1 11/22/2018 Admission Count Last Ordered Date First Orde red Date ASSIGN PATIENT STATUS 2 11/23/20182018 documented in this encounter 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 Care Teams Fire Assistant Relationship Specialty Start Date End Date Kirt Lindsay DO PCP - General 05/02/17 11/22/20 documented as of this encounter
--- OUTSIDE RECORDS SUMMARY | 2024-11-22 11:07 | XMS_ITS | Encounter Summary ---
Author Organization 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) Social History Tobacco Use Types Packs/Day Years Used Date Smoking Tobacco: Every Day Smokeless Tobacco: Never Sex and Gender Information Value Date Recorded Sex Assigned at Not on file Legal Sex Male 10:48 AM ACCOUNT ASSISTANT Gender Identity Not on file Sexual Orientation Not on file documented as of this encounter Plan of Treatment Not on file documented as of this encounter Results * (ABNORMAL) IgG (2018 9:30 AM ACCOUNT ASSISTANT) Immunoglobulin G 579.0(L) 700.0 - 1,600.0 mg/dL [facility] Blood specimen (specimen) 2018 9:30 AM ACCOUNT ASSISTANT 2018 9:49 AM ACCOUNT ASSISTANT Narrative [facility] - 2018 10:21 AM ACCOUNT ASSISTANT Narcisa Kilgore ARCHITECTURE DEPARTMENT CHAIR LAB BLOOD ORDERABLES Pilar l Result Performing Organization Address City/[facility]/ZIP Co de Phone Number [facility] [place] [address] * (ABNORMAL) Vitamin D 25 hydroxy (2018 9:30 AM ACCOUNT ASSISTANT) Vitamin D 25-OH 22(L) 30 - 80 ng/mL [facility] Blood specimen (specimen) 2018 9:30 AM ACCOUNT ASSISTANT 2018 9:49 AM ACCOUNT ASSISTANT Narrative [facility] - 2018 10:59 AM ACCOUNT ASSISTANT Narcisa Kilgore ARCHITECTURE DEPARTMENT CHAIR LAB BLOOD ORDERABLES Pilar l Result Performing Organization Address [facility] Co de Phone Number [facility] [place] [address] * (ABNORMAL) TSH (2018 9:30 AM ACCOUNT ASSISTANT) Thyroid Stimulating Hormone 0.22(L) 0.30 - 4.20 mcIUnit/mL [facility] Blood specimen (specimen) 2018 9:30 AM ACCOUNT ASSISTANT 2018 9:49 AM ACCOUNT ASSISTANT Narrative [facility] - 2018 10:30 AM ACCOUNT ASSISTANT Narcisa Kilgore ARCHITECTURE DEPARTMENT CHAIR LAB BLOOD ORDERABLES Pilar l Result Performing Organization Address City/[facility]/ZIP Co de Phone Number [facility] [place] [address] documented in this encounter Visit Diagnoses Diagnosis AML (acute myeloid leukemia) in remission (HCC)- Primary AML (acute myeloid leukemia) in remission (HCC) 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
--- OUTSIDE RECORDS SUMMARY | 2024-11-22 11:07 | XMS_ITS | Encounter Summary ---
Author Organization [facility] Address [address] [place] [address] Phone Care Team Providers Care Circle Cutting Saw Operator Name Role Phone Kirt Lindsay DO Primary Care Provider +1- [phone] Encounter Details Date Type Department Care Team (Late st Contact Info) Description 2018 10:00 AM SPORTS OFFICIAL Office Visit [facility] Bone Marrow Transplant [address] [facility] Advanced Medicine 7th Floor, [place] [id number] Josué Del Valle MD PhD [address] DIV IM BONE MARROW TRANSPLANT, [address] [place] [address] 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); H/O allogeneic bone marrow transplant ([facility]/HCC); Rpago-iyfkju-xwps disease (CMS/HCC); Type 2 diabetes mellitus with hyperglycemia, with long-term current use of insulin ([facility]/HCC) Social History Tobacco Use Types Packs/Day Years Used Date Smoking Tobacco: Every Day Smokeless Tobacco: Never Comments:Pt not interested i n smoking cessation program Sex and Gender Information Value Date Recorded Sex Assigned at Not on file Legal Sex Male 10:48 AM SPORTS OFFICIAL Gender Identity Not on file Sexual Orientation Not on file documented as of this encounter Last Filed Vital Signs Vital Sign Reading Time Taken Comments Blood Pressure 143/67 2018 10:03 AM SPORTS OFFICIAL Pulse 69 2018 10:03 AM SPORTS OFFICIAL Temperature 35.9 ??C (96.6 ??F) 2018 10:[address] Respiratory Rate 18 2018 10:03 AM SPORTS OFFICIAL Oxygen Saturation 96% 2018 10:03 AM SPORTS OFFICIAL Inhaled Oxygen Concentration - - Weight 70 kg (154 lb 6.4 oz) 2018 10:03 AM SPORTS OFFICIAL Height - - Body Mass Index 21.98 07/28/2018 10:39 AM CDT documented in this encounter Ordered Prescriptions Prescription Sig Dispense Quantity Refills Last Filled Start Date End Date sulfamethoxazole-t rimethoprim (BACTRIM,SEPTRA) 800-160 mg per tabletIndications: AML (acute myeloid leukemia) in remission (HCC),H/O allogeneic bone marrow transplant (HCC) Take 1 tablet by mouth 2 (two) times a day. 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 TREATMENT HISTORY: 1. Induction with 7+3 and HiDAC consolidation x3. 2. Decitabine [place] [address] protocol. 3. 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 TRANSPLANT HISTORY: Status post an allogeneic transplant with busulfan and Cytoxan on the [facility] allogeneic study with hissister, 08/27 match; with day 0 on 11/09/2009. INTERVAL HISTORY: Bri carries a diagnosis of AML. He is 3274 days post sib allo transplant for AML after busulfan/Cytoxan conditioning regimen as standard of care. He was recently hospitalized in June for pneumonia and some chronic GVHD involving mouth and eyes. He also has COPD and multiple dental extractions.He continues to be short of breath and has dyspnea on exertion. CT scan has been scheduled and PFTshave been scheduled. In spite of medications, he has continued to have shortness of breath. MEDICATIONS: 1. Prednisone 40 mg a day. 2. Ventolin. 3. Advair. 4. Mycophenolate. 5. Xarelto. 6. Acyclovir. 7. Lipitor. 8. Azithromycin. 9. Tacrolimus. PHYSICAL EXAMINATION: General: Thin chronically ill-appearing male in no acute distress. Vital Signs: Blood pressure 143/67, temperature 35.9 degrees, weight 70 kg. HEENT: GVHD of the skin, eyes and mouth. Edentulous. Neck: Supple, nontender without thyromegaly or adenopathy. Chest: Clear to auscultation and percussion but with increased expiratory phase and slight rhonchi bilaterally. Cardiovascular: S1, S2 without rubs, murmurs, gallops. Abdominal: No organomegaly, without hepatosplenomegaly. Neurologic: Grossly intact. LABORATORY DATA: White count today is 13.9, up from 8.3; hemoglobin 15.2, platelet count 163,000. IMPRESSION: 1. Acute myeloid leukemia, status post allogeneic stem cell transplant almost 10 years ago. 2. Chronic cmjxj-evkcae-oaqr disease which is extensive involving his skin, mouth and eyes, and probable lungs as well. 3. Chronic obstructive pulmonary disease with a long history of smoking. He continues to smoke in fact I think. He has had several admissions in the last several years for pneumonia, 1 recently a year ago in the ICU. His last PFTs a year ago demonstrated an FEV1 47% of predicted, DLCO 26% of predicted and DLCO/VA of 31% of predicted. Fixed restrictive and obstructive pulmonary disease probably worsened by multiple pneumonias and chronic GVHD. He is on an increased dose of steroids. He is on multiple immunosuppressive agents including 40 of prednisone. He will need to be on PCP prophylaxis. ELECTRONICALLY SIGNED - 2018 01:56 PM Josué Del Valle M.D., Ph.D. Chief, Division of Oncology/medical information specialist Section of BMT & Leukemia CHRISTOPHER/argentina TS OFFICIAL documented in this encounter Plan of Treatment Not on file documented as of this encounter Visit Diagnoses Diagnosis AML (acute myeloid leukemia) in remission (HCC)- Primary H/O allogeneic bone marrow transplant (HCC) Qgshz-gydmmm-vdzf disease (HCC) Type 2 diabetes mellitus with hyperglycemia, with long-term current use of insulin (HCC) documented in this encounter Discontinued Medications Medication Sig Discontinue Reason Start Date End Da te XARELTO 20 mg tablet 08/24/2018 2018 azithromycin (ZITHROMAX) 250 mg tabletIndications:Cough Take 1 tablet (250 mg total) by mouth daily for 5 days. Take 2 tablets the first day, then 1 tablet daily for 4 days. 10/17/2018 2018 levoFLOXacin (LEVAQUIN) 750 mg tabletIndications:AML (acute myeloid leukemia) in remission (HCC),Qyfmu-oummgu-vmkz disease (HCC),H/O allogeneic bone marrow transplant (HCC),Type 2 diabetes mellitus with hyperglycemia, with long-term current use of insulin (HCC) 07/17/2018 2018 mycophenolate mofetil (CELLCEPT) 500 mg tabletIndications:AML (acute myeloid leukemia) in remission (HCC),Qekeo-vtdnke-aewx disease (HCC) Take 2 tablets (1,000 mg total) by mouth 2 (two) times a day. 07/17/2018 2018 azithromycin (ZITHROMAX) 250 mg tabletIndications:AML (acute myeloid leukemia) in remission (HCC),Hdwsk-zbsxwk-xnih disease (HCC),H/O allogeneic bone marrow transplant (HCC),Type 2 diabetes mellitus with hyperglycemia, with long-term current use of insulin (HCC) 07/09/2018 2018 mycophenolate mofetil (CELLCEPT) 500 mg tablet Reorder 08/24/2018 018 predniSONE (DELTASONE) 10 mg tabletIndications:AML (acute myeloid leukemia) in remission (HCC),Hidba-svdovg-jwat disease (HCC) Take 4 tablets (40 mg total) by mouth daily. Reorder 10/01/2018 2018 documented as of this encounter Orders Appointment Requests Count Last Ordered Date Fi rst Ordered Date ONCBCN CLINIC APPOINTMENT REQUEST 1 018 documented in this encounter 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 Care Teams Circle Cutting Saw Operator Relationship Specialty Start Date End Date Kirt Lindsay DO PCP - General 05/02/17 11/22/20 documented as of this encounter
--- OUTSIDE RECORDS SUMMARY | 2024-11-22 11:08 | XMS_ITS | Encounter Summary ---
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/HCC); H/O allogeneic bone marrow transplant ([facility]); Pkrjx-xlxpbx-fjbh disease ([facility]/HCC); AML (acute myeloid leukemia) in remission (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/HCC) H/O allogeneic bone marrow transplant (CMS/HCC) LACTATE DEHYDROGENASE Routine 07/28/2018 10:17 AM CDT 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) Nkteu-bucgyj-iwdv disease (CMS/HCC) H/O allogeneic bone marrow transplant (CMS/HCC) COMPREHENSIVE METABOLIC PANEL Routine 07/28/2018 10:17 AM CDT 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) Liypb-bozmwx-qkvm disease (CMS/HCC) H/O allogeneic bone marrow transplant (CMS/HCC) DIFFERENTIAL AUTO Routine 07/28/2018 10: 15 AM CDT 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) Hrnlu-edvsxp-ewim disease (CMS/HCC) H/O allogeneic bone marrow transplant (CMS/HCC) CBC WITH AUTO DIFFERENTIAL Routine 07/28/2018 10:15 AM CDT 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) Gvpcl-gfjjbr-ypdm disease (CMS/HCC) H/O allogeneic bone marrow transplant (CMS/HCC) documented in this encounter Results * (ABNORMAL) Comprehensive metabolic panel (07/28/2018 10:17 AM CDT) Sodium 141 135 - 145 mmol/L [facility] Potassium, pl 3.6 3.3 - 4.9 mmol/L [facility] Chloride 105 97 - 110 mmol/L [facility] CO2 29 22 - 32 mmol/L [facility] Anion gap 7 2 - 15 mmol/L [facility] BUN 8 8 - 25 mg/dL [facility] Creatinine 0.78(L) 0.80 - 1.30 mg/dL [facility] Glucose 217(H) 70 - 199 mg/dL [facility] Comment: Interpretive Data Fasting glucose [...] 2017. Calcium 8.5 8.5 - 10.3 mg/dL [facility] Bilirubin, total 0.3 0.1 - 1.2 mg/dL [facility] Protein, pl 6.2(L) 6.5 - 8.5 g/dL [facility] Albumin 3.2(L) 3.5 - 5.0 g/dL [facility] Alk phos 146(H) 40 - 130 Units/L [facility] ALT 39 7 - 55 Units/L [facility] AST 32 10 - 50 Units/L [facility] Blood specimen (specimen) 07/28/2018 10:17 AM CDT 07/28/2018 10:45 AM CDT Narrative [facility] - 07/28/2018 11:18 AM CDT Narcisa Kilgore PAPER INSERTER LAB BLOOD ORDERABLES Pilar l Result Performing Organization Address City/[facility] Co de Phone Number [facility] [place] [address] * (ABNORMAL) Lactate dehydrogenase (LD) (07/28/2018 10:17 AM CDT) Lactate dehydrogenase (LDH) 324(H) 100 - 250 Units/L [facility] Blood specimen (specimen) 07/28/2018 10:17 AM CDT 07/28/2018 10:45 AM CDT Narrative [facility] - 07/28/2018 11:18 AM CDT Narcisa Kilgore PAPER INSERTER LAB BLOOD ORDERABLES Pilar l Result [facility] [place] [address] * Tacrolimus level, random (07/28/2018 10:17 AM CDT) Pathologist [facility] Tacrolimus, random <1.0 ng/mL [facility] Comment: Undetectable. ??Please verify that the correct immunosuppressant test was requested. Interpretive Data Testing performed by liquid chromatography-tandem mass spectrometry (LC- MS/MS).This test was developed using an analyte specific reagent. ?? Its performance characteristics were determined by the [facility] in a manner consistent with CLIA requirements. ??This test has not been cleared or approved by the U.S. Food and Drug Administration. Current interpretive data was last revised on 2016. Blood specimen (specimen) 07/28/2018 10:17 AM CDT 07/28/2018 10:43 AM CDT Narrative [facility] - 07/28/2018 1:14 PM CDT Narcisa Kilgore NP LAB BLOOD ORDERABLES Pilar armas Result [facility] [place] [address] * Differential, auto (07/28/2018 10:15 AM CDT) Pathologist [facility] Neutrophil abs 4.6 1.8 - 6.6 K/cumm [facility] Comment:Testing performed by : [facility], [address] [place] [phone] Lymphocyte abs 2.7 1.2 - 3.3 K/cumm [facility] Comment:Testing performed by : [facility], [address] [place] [phone] Monocyte abs 0.8 0.2 - 1.2 K/cumm [facility] Comment:Testing performed by : [facility], [address] [place] [phone] Eosinophil abs 0.1 0.0 - 0.5 K/cumm [facility] Comment:Testing performed by : [facility], [address] [place] [phone] Basophil abs 0.1 0.0 - 0.2 K/cumm [facility] Comment:Testing performed by : [facility], [address] [place] [phone] Neutrophil pct 54.8 % [facility] Comment: Interpretive Data Percent cell count reference ranges are not reported, since discordance with absolute values may lead to misinterpretation of CBC data. Current Interpretive Data was last revised on 2018. Testing performed by: [facility], [address] [place] [phone] Lymphocyte pct 32.5 % [facility] Comment: Interpretive Data Percent cell count reference ranges are not reported, since discordance with absolute values may lead to misinterpretation of CBC data. Current Interpretive Data was last revised on 2018. Testing performed by: [facility], [address] [place] [phone] Monocyte pct 9.5 % [facility] Comment:Testing performed by : [facility], [address] [place] [phone] Eosinophil pct 1.8 % [facility] Comment:Testing performed by : [facility], [address] [place] [phone] Basophil pct 1.4 % [facility] Comment:Testing performed by : [facility], [address] [place] [phone] Blood specimen (specimen) 07/28/2018 10:15 AM CDT 07/28/2018 10:15 AM CDT Narrative [facility] - 07/28/2018 10:24 AM CDT us Narcisa Kilgore PAPER INSERTER LAB BLOOD ORDERABLES Pilar l Result [facility] [place] [address] * (ABNORMAL) CBC with auto differential (07/28/2018 10:15 AM CDT) WBC 8.3 3.8 - 9.8 K/cumm [facility] Comment:Testing performed by : [address] [phone] Hgb 13.1(L) 13.8 - 17.2 g/dL [facility] Comment:Testing performed by : [facility], [address] [place], [place] [phone] Hct 37.6(L) 40.7 - 50.3 % [facility] Comment:Testing performed by : [facility], [address] [place] [address] Plt 212 140 - 440 K/cumm [facility] Comment:Testing performed by : [facility], [address] [place] [address] MPV 7.8 6.8 - 10.4 fL [facility] Comment:Testing performed by : [place] [address] RBC 3.56(L) 4.50 - 5.70 M/cumm [facility] Comment:Testing performed by : [place] [address] MCV 105.7(H) 80.0 - 97.6 fL [facility] Comment:Testing performed by : [facility], [address] [place] [address] MCH 36.8(H) 26.7 - 33.7 pg [facility] Comment:Testing performed by : [place] [address] MCHC 34.8 32.7 - 35.5 g/dL [facility] Comment:Testing performed by : [place] [address] RDW CV 13.4 11.8 - 14.6 % [facility] Comment:Testing performed by : [facility], [address] [place] [address] NRBC abs 0.00 0.00 - 0.01 K/cumm [facility] Comment:Testing performed by : [place] [id number] Blood specimen (specimen) 07/28/2018 10:15 AM CDT 07/28/2018 10:15 AM CDT Narrative [facility] - 07/28/2018 10:24 AM CDT Narcisa Kilgore PAPER INSERTER LAB BLOOD ORDERABLES Pilar l Result [facility] [place] [address] documented in this encounter Visit Diagnoses Diagnosis Acute myeloid leukemia in remission (HCC) 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
--- OUTSIDE RECORDS SUMMARY | 2024-11-22 11:08 | XMS_ITS | Encounter Summary ---
Author Organization [facility] Address [address] [facility] [address] [place] [address] Phone Care Team Providers Care Clothing Designer Name Role Phone Kirt Lindsay DO Primary Care Provider +1- [phone] Reason for Visit * Reason Comments Follow-up Encounter Details Date Type Department Care Team (Late st Contact Info) Description 09/01/2018 10:30 AM CDT Office Visit [facility] Surgery [facility] [address] [place] [phone] Spenser Loving MD [address] 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 Follow-up History of present illness: Brady Jones is a 52 y.o. male who returns to discuss xiaflex. He reports minimal changes to his penile curvature and denies any pain. Vitals: Most Recent : There were no vitals taken for this visit. Physical Exam General Appearance: Alert, cooperative, no distress, appears stated age, well developed, well nourished Head: Normocephalic, without obvious abnormality, atraumatic Eyes: Conjunctiva/corneas clear and anicteric Nose: Nares normal, septum midline, mucosa normal, no drainage Throat: Mucous membranes moist Back: Symmetric, no curvature, ROM normal, no CVA tenderness Lungs: Breathing comfortably with minimal inspiratory effort Cardiovascular: Regular rate and rhythm Abdomen: Soft, non-tender, bowel sounds active all four quadrants, no masses, no organomegaly, non-distended Extremities: Extremities normal, atraumatic Lab/Radiology/Diagnostic Review: Additional Labs: Lab Results Component Value Date CREATININE 0.78 (L) 07/28/2018 Lab Results Component Value Date PSA 0.7 02/04/2017 PSA 0.7 02/04/2017 PSA 0.7 12/26/2012 Additional Labs: UA: Lab Results Component Value Date RBCU 1 01/23/2013 GLUCOSEU 4+ (A) 01/23/2013 NITRITEU Negative 11/23/2017 KETONESU Negative 11/23/2017 Assessment/Plan Mr Brady Jones is a 52 y.o. male seen today for complaints of penile curvature, interested in xiaflex treatment. We discussed the pathophysiology of peyronie's disease and its effect on penile curvature, length and girth. We discussed treatment options, including xiaflex injections, penile traction and surgery. Patient is not interested in surgery at this time. We discussed xiaflex treatment in detail, including need of 30 degree curvature to proceed with treatment. We discussed logistics of treatment, including timing for injections and need for strict sexual abstinence x 2 weeks after each injection. We discussed average improvement after completing xiaflex injection. We discussed theside effects and possible complications, including bruising, tenderness, hematoma, soft tissue swelling, as well as rare complication of spontaneous Corporal rupture. We discussed the need for 2 weeks strict abstinence from sexual activity. We discussed the risk of penile fracture if strict sexual a bstinence is not followed. Patient was provided with xiaflex booklet of information, and patient filled out paperwork for xiaflex injections. Patient is interested in proceeding with xiaflex. Please note 15 minutes were spent in the direct care of this patient, of which >50% were spent in face to face consultation documented in this encounter Plan of Treatment Not on file documented as of this encounter Visit Diagnoses Diagnosis Induration penis plastica- Primary documented in this encounter Historical Medications * This list may reflect changes made after this encounter. Medication Sig Dispense Quantity Refills Last Filled Start D ate End Date XARELTO 20 mg tablet 08/24/201810/18 mycophenolate mofetil (CELLCEPT) 500 mg tablet 08/24/2018 2018 added in this encounter 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 Care Teams Clothing Designer Relationship Specialty Start Date End Date Kirt Lindsay DO PCP - General 05/02/17 11/22/20 documented as of this encounter
--- OUTSIDE RECORDS SUMMARY | 2024-11-22 11:08 | XMS_ITS | Encounter Summary ---
Author Organization [facility] Address [address] [place] [address] Phone Care Team Providers Care Peoplesoft Taleo Manager Name Role Phone Kirt Lindsay DO Primary Care Provider +1- [phone] Encounter Details Date Type Department Care Team (Late st Contact Info) Description 06/13/2018 Orders Only [facility] Bone Marrow Transplant [address] [facility] Advanced Medicine 7th Floor, [place] [address] Josué Del Valle MD PhD [address] DIV IM BONE MARROW TRANSPLANT, [address] [place], [place] [id number] Cough (Primary Dx); AML (acute myeloid leukemia) in remission ([facility]) Social History Tobacco Use Types Packs/Day Years Used Date Smoking Tobacco: Every Day Smokeless Tobacco: Never Sex and Gender Information Value Date Recorded Sex Assigned at Not on file Legal Sex Male 10:[address] Gender Identity Not on file Sexual Orientation Not on file documented as of this encounter Ordered Prescriptions Prescription Sig Dispense Quantity Refills Last Filled Start Date End Date azithromycin (ZITHROMAX) 250 mg tabletIndications: Upper Respiratory/HEENT Infection,upper respiratory symptoms Take 1 tablet (250 mg total) by mouth daily for 5 days. Take 2 tablets the first day, then 1 tablet daily for 4 days. 6 tablet 06/13/2018 documented in this encounter Plan of Treatment Not on file documented as of this encounter Visit Diagnoses Diagnosis Cough- Primary AML (acute myeloid leukemia) in remission (HCC) documented in this encounter 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 Care Teams Peoplesoft Taleo Manager Relationship Specialty Start Date End Date Kirt Lindsay DO PCP - General 05/02/17 11/22/20 documented as of this encounter
--- OUTSIDE RECORDS SUMMARY | 2024-11-22 11:08 | XMS_ITS | Encounter Summary ---
Author Organization [facility] Address [address] [place] [address] Phone Care Team Providers Care Broadcast Traffic Coordinator Name Role Phone Kirt Lindsay DO Primary Care Provider +1- [phone] Encounter Details Date Type Department Care Team (Late st Contact Info) Description 06/24/2018 Orders Only [facility] Bone Marrow Transplant [address] [facility] Medicine 7th Floor, [place] [address] Justine Jones RN 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); Znrqj-atwtro-pvmq disease (CMS/HCC) Social History Tobacco Use Types Packs/Day Years Used Date Smoking Tobacco: Every Day Smokeless Tobacco: Never Sex and Gender Information Value Date Recorded Sex Assigned at Not on file 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 60 capsule 6 06/24/2018 9 documented in this encounter Plan of Treatment Not on file documented as of this encounter Visit Diagnoses Diagnosis AML (acute myeloid leukemia) in remission (HCC) Npbok-uxkzxi-xixw disease (HCC) documented in this encounter Discontinued Medications Medication Sig Discontinue Reason Start Date End Da te tacrolimus (PROGRAF) 0.5 mg capsuleIndications:AML (acute myeloid leukemia) in remission (HCC),Eukkk-dmoffu-osfq disease (HCC) Take 1 capsule (0.5 mg total) by mouth daily. Reorder 06/24/2018 06/24/2018 documented as of this encounter 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 Care Teams Broadcast Traffic Coordinator Relationship Specialty Start Date End Date Kirt Lindsay DO PCP - General 05/02/17 11/22/20 documented as of this encounter
--- OUTSIDE RECORDS SUMMARY | 2024-11-22 11:08 | XMS_ITS | Encounter Summary ---
Author Organization [facility] Address [address] [place] [address] Phone Care Team Providers Care Field Technical Support Consultant Name Role Phone Kirt Lindsay DO Primary Care Provider +1- [phone] Encounter Details Date Type Department Care Team (Late st Contact Info) Description 06/19/2018 Documentation [facility] Oncology [address] [facility] 7th [place] [address] [place] [address] Eneida Gibson MD [address] [place] [address] Social History Tobacco Use Types Packs/Day Years Used Date Smoking Tobacco: Every Day Smokeless Tobacco: Never Sex and Gender Information Value Date Recorded Sex Assigned at Not on file 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 Gender Identity Not on file Sexual Orientation Not on file documented as of this encounter Progress Notes * Quiana Flores MA - 06/19/2018 9:45 AM CDT I left a message regarding missed appts (rov/bmd from last week) documented in this encounter Plan of Treatment Not on file documented as of this encounter Visit Diagnoses Not on filedocumented in this encounter 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 Care Teams Field Technical Support Consultant Relationship Specialty Start Date End Date Kirt Lindsay DO PCP - General 05/02/17 11/22/20 documented as of this encounter
--- OUTSIDE RECORDS SUMMARY | 2024-11-22 11:08 | XMS_ITS | Encounter Summary ---
Author Organization [facility] Address [address] [place] [address] Phone Care Team Providers Care Pastry Supervisor Name Role Phone Kirt Lindsay DO Primary Care Provider +1- [phone] Encounter Details Date Type Department Care Team (Late st Contact Info) Description 07/17/2018 Orders Only [facility] Bone Marrow Transplant [address] [facility] Medicine 7th Floor, [place] [address] Justine Jones RN AML (acute myeloid leukemia) in remission ([facility]); Lxuqd-atgcmv-osjz disease ([facility]) Social History Tobacco Use Types Packs/Day Years Used Date Smoking Tobacco: Every Day Smokeless Tobacco: Never Sex and Gender Information Value Date Recorded Sex Assigned at Not on file 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 120 tablet 2 07/17/2018 8 XARELTO 20 mg tabletIndications: AML (acute myeloid leukemia) in remission (HCC) Take 1 tablet (20 mg total) by mouth daily. 30 tablet 2 07/17/2018 8 documented in this encounter Plan of Treatment Not on file documented as of this encounter Visit Diagnoses Diagnosis AML (acute myeloid leukemia) in remission (HCC) Vtsgw-tojwbf-neoy disease (HCC) documented in this encounter Discontinued Medications Medication Sig Discontinue Reason Start Date End Da te XARELTO 20 mg tabletIndications:AML (acute myeloid leukemia) in remission (HCC) Take 1 tablet by mouth daily. Reorder 03/18/2018 07/17/2018 mycophenolate mofetil (CELLCEPT) 500 mg tabletIndications:AML (acute myeloid leukemia) in remission (HCC),Uvhei-vgsoot-ctaz disease (HCC) Take 2 tablets by mouth 2 (two) times a day. Reorder 11/03/2012 07/17/2018 VENTOLIN HFA 90 mcg/actuation inhalerIndications:AML (acute myeloid leukemia) in remission (HCC) Inhale 1-2 puffs every 4 (four) hours as needed. Reorder 04/18/2018 07/17/2018 documented as of this encounter 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 Care Teams Pastry Supervisor Relationship Specialty Start Date End Date Kirt Lindsay DO PCP - General 05/02/17 11/22/20 documented as of this encounter
--- OUTSIDE RECORDS SUMMARY | 2024-11-22 11:08 | XMS_ITS | Encounter Summary ---
Author Organization 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) Social History Tobacco Use Types Packs/Day Years Used Date Smoking Tobacco: Every Day Smokeless Tobacco: Never Sex and Gender Information Value Date Recorded Sex Assigned at Not on file 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 Gender Identity Not on file Sexual Orientation Not on file documented as of this encounter Plan of Treatment Not on file documented as of this encounter Procedures Procedure Name Priority Date/Time Associated Diagnosis Comments VITAMIN D 25 HYDROXY Routine 06/06/2018 9:25 AM CDT Osteopenia, unspecified location LACTATE DEHYDROGENASE Routine 06/06/2018 9:25 AM CDT 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) HEMOGLOBIN A1C Routine 06/06/2018 9:25 AM CDT Osteopenia, unspecified location COMPREHENSIVE METABOLIC PANEL Routine 06/06/2018 9:25 AM CDT Osteopenia, unspecified location DIFFERENTIAL AUTO Routine 06/06/2018 9:2 4 AM CDT 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) CBC WITH AUTO DIFFERENTIAL Routine 06/06/2018 9:24 AM CDT 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) documented in this encounter Results * (ABNORMAL) Vitamin D 25 hydroxy (06/06/2018 9:25 AM CDT) [facility] Vitamin D 25-OH 25(L) 30 - 80 ng/mL [facility] Blood specimen (specimen) 06/06/2018 9:25 AM CDT 06/06/2018 9:33 AM CDT Narrative [facility] - 06/06/2018 10:24 AM CDT us Eneida Gibson MD LAB BLOOD ORDERABLES Final Resul t [facility] Department [place] [address] * (ABNORMAL) Hemoglobin A1c (06/06/2018 9:25 AM CDT) [facility] Hgb A1C 6.3(H) 4.0 - 5.6 % [facility] Estimated Average Glucose 134 mg/dL [facility] Comment: The ADA recommends reporting an estimated Average Glucose (eAG) with all Hemoglobin A1c results using the equation derived from a study of 507 normal and diabetic adults. ??Minority populations were underrepresented and children were not included. ?? (Diabetes Care 31:7251-4081, 2008). ??The eAG is not equivalent to a fasting glucose. Blood specimen (specimen) 06/06/2018 9:25 AM CDT 06/06/2018 9:33 AM CDT Narrative [facility] - 06/06/2018 9:56 AM CDT us Eneida Gibson MD LAB BLOOD ORDERABLES Final Resul t [facility] Department [place] [address] * (ABNORMAL) Comprehensive metabolic panel (06/06/2018 9:25 AM CDT) Sodium 144 135 - 145 mmol/L [facility] Potassium, pl 3.1(L) 3.3 - 4.9 mmol/L [facility] Chloride 107 97 - 110 mmol/L [facility] CO2 31 22 - 32 mmol/L [facility] Anion gap 6 2 - 15 mmol/L [facility] BUN 16 8 - 25 mg/dL [facility] Creatinine 0.90 0.80 - 1.30 mg/dL [facility] Glucose 135 70 - 199 mg/dL [facility] 2017. Calcium 8.9 8.5 - 10.3 mg/dL [facility] Bilirubin, total 0.5 0.1 - 1.2 mg/dL [facility] Protein, pl 6.4(L) 6.5 - 8.5 g/dL [facility] Albumin 3.8 3.5 - 5.0 g/dL [facility] Alk phos 88 40 - 130 Units/L [facility] ALT 33 7 - 55 Units/L [facility] AST 38 10 - 50 Units/L [facility] Blood specimen (specimen) 06/06/2018 9:25 AM CDT 06/06/2018 9:33 AM CDT Narrative [facility] - 06/06/2018 10:02 AM CDT Eneida Gibson MD LAB BLOOD ORDERABLES Final Resul t Performing Organization Address [facility] de Phone Number [facility] Department [place] [address] * (ABNORMAL) Lactate dehydrogenase (LD) (06/06/2018 9:25 AM CDT) Pathologist [facility] Lactate dehydrogenase (LDH) 296(H) 100 - 250 Units/L [facility] Blood specimen (specimen) 06/06/2018 9:25 AM CDT 06/06/2018 9:33 AM CDT Narrative [facility] - 06/06/2018 10:02 AM CDT Narcisa Kilgore NP LAB BLOOD ORDERABLES Pilar l Result Performing Organization Address [facility] de Phone Number [facility] Department [place] [address] * (ABNORMAL) Differential, auto (06/06/2018 9:24 AM CDT) Pathologist [facility] Neutrophil abs 4.0 1.8 - 6.6 K/cumm [facility] Comment:Testing performed by : [facility], [address] [place] [phone] Lymphocyte abs 4.8(H) 1.2 - 3.3 K/cumm [facility] Comment:Testing performed by : [facility], [address] [place] [phone] Monocyte abs 0.9 0.2 - 1.2 K/cumm [facility] Comment:Testing performed by : [facility], [address] [place] [phone] Eosinophil abs 0.1 0.0 - 0.5 K/cumm [facility] Comment:Testing performed by : [facility], [address] [place] [phone] Basophil abs 0.1 0.0 - 0.2 K/cumm [facility] Comment:Testing performed by : [facility], [address] [place] [phone] Neutrophil pct 40.4 % [facility] Comment: Interpretive Data Percent cell count reference ranges are not reported, since discordance with absolute values may lead to misinterpretation of CBC data. Current Interpretive Data was last revised on 2018. Testing performed by: [facility], [address] [place] [phone] Lymphocyte pct 47.6 % [facility] Comment: Interpretive Data Percent cell count reference ranges are not reported, since discordance with absolute values may lead to misinterpretation of CBC data. Current Interpretive Data was last revised on 2018. Testing performed by: [facility], [address] [place] [phone] Monocyte pct 9.4 % [facility] Comment:Testing performed by : [facility], [address] [place] [phone] Eosinophil pct 1.5 % [facility] Comment:Testing performed by : [facility], [address] [place] [phone] Basophil pct 1.1 % [facility] Comment:Testing performed by : [facility], [address] [place] [phone] Blood specimen (specimen) 06/06/2018 9:24 AM CDT 06/06/2018 9:26 AM CDT Narrative [facility] - 06/06/2018 9:30 AM CDT us Narcisa Kilgore BOOMBOAT OPERATOR LAB BLOOD ORDERABLES Pilar l Result [facility] Department [place] [address] * (ABNORMAL) CBC with auto differential (06/06/2018 9:24 AM CDT) WBC 10.0(H) 3.8 - 9.8 K/cumm [facility] Comment:Testing performed by : [facility], [address] [place] [address] Hgb 14.2 13.8 - 17.2 g/dL [facility] Comment:Testing performed by : [facility], [address] [place] [address] Hct 41.7 40.7 - 50.3 % [facility] Comment:Testing performed by : [place] [address] Plt 215 140 - 440 K/cumm [facility] Comment:Testing performed by : [facility], [address] [place] [address] MPV 7.1 6.8 - 10.4 fL [facility] Comment:Testing performed by : [place] [address] RBC 3.84(L) 4.50 - 5.70 M/cumm [facility] Comment:Testing performed by : [place] [address] MCV 108.5(H) 80.0 - 97.6 fL [facility] Comment:Testing performed by : [facility], [address] [place] [address] MCH 37.0(H) 26.7 - 33.7 pg [facility] Comment:Testing performed by : [place] [address] MCHC 34.1 32.7 - 35.5 g/dL [facility] Comment:Testing performed by : [place] [address] RDW CV 14.9(H) 11.8 - 14.6 % [facility] Comment:Testing performed by : [place] [address] NRBC abs 0.02(H) 0.00 - 0.01 K/cumm [facility] Comment:Testing performed by : [facility], [address] [place] [address] Blood specimen (specimen) 06/06/2018 9:24 AM CDT 06/06/2018 9:26 AM CDT Narrative [facility] - 06/06/2018 9:30 AM CDT us Narcisa Kilgore BOOMBOAT OPERATOR LAB BLOOD ORDERABLES Pilar armas Result [facility] Department [place] [address] documented in this encounter Visit Diagnoses Diagnosis Osteopenia, unspecified location Acute myeloid leukemia in remission (HCC) Acute myeloid leukemia in remission documented in this encounter 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 Care Teams Digital Hardware Design Engineer Relationship Specialty Start Date End Date Kirt Lindsay DO PCP - General 05/02/17 11/22/20 documented as of this encounter
--- OUTSIDE RECORDS SUMMARY | 2024-11-22 11:08 | XMS_ITS | Encounter Summary ---
Author Organization [facility] Address [address] [facility] [address] [place] [address] Phone Care Team Providers Care College Advisor Name Role Phone Kirt Lindsay DO Primary Care Provider +1- [phone] Encounter Details Date Type Department Care Team (Late st Contact Info) Description 10/15/[address] 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 Patient had been advised that it will take a coupleof days and they will contact him before us. I informed patient that I will f/u with them on anks:) ON CUTTER * Telephone Encounter - Kris Bursn LPN - 10/17/2018 2:04 PM CST Ok I will give him a call thanks:) ON CUTTER * Telephone Encounter - Ethel Marinelli - 10/17/2018 1:52 PM CST Pt returned your call,thanks ON CUTTER * Telephone Encounter - Lucinda Bourne - 10/15/2018 4:13 PM CST Pt. Is calling back in regards to you vm about his xiaflex medication please cb the pt. ON CUTTER * Telephone Encounter - Kris Burns LPN - 10/15/2018 3:54 PM CST Left VM for patient to call me back in regards to Xiaflex approval ON CUTTER documented in this encounter Plan of Treatment Not on file documented as of this encounter Visit Diagnoses Not on filedocumented in this encounter 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 Care Teams College Advisor Relationship Specialty Start Date End Date Kirt Lindsay DO PCP - General 05/02/17 11/22/20 documented as of this encounter
--- OUTSIDE RECORDS SUMMARY | 2024-11-22 11:08 | XMS_ITS | Encounter Summary ---
Author Organization [facility] Address [address] 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) Procedures CT chest without contrast Narcisa Kilgore NP Phone: tel: fax: [address] [address] Referral ID Status Reason Start Date Expiration Date Visits Re quested Visits Authorized [id number] Closed 10/08/2018 04/18/2020 1 1 EMAN * Oncology (Routine) - Closed Specialty Diagnoses / Procedures Referred By Controberta t Referred To Contact Diagnoses AML (acute myeloid leukemia) in remission (HCC) H/O allogeneic bone marrow transplant (HCC) Avhwd-ymrkqa-dkzl disease (HCC) Procedures Pulmonary Function Test -[facility]- CAM-8D; Spirometry with Bronchodilator, DLCO, Lung Volumes, Airway Resistance; Pleth with Airway Resistance; Lung volumes Narcisa Kilgore NP Phone: tel: fax: [facility] [address] [place] [address] Referral ID Status Reason Start Date Expiration Date Visits Re quested Visits Authorized [id number] Closed 10/08/2018 04/18/2020 1 1 EMAN Encounter Details Date Type Department Care Team (Late st Contact Info) Description 10/08/2018 Orders Only [facility] Bone Marrow Transplant [address] [facility] 7th Floor, [place] [address] Mellisa Rubalcava RN 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); H/O allogeneic bone marrow transplant (CMS/HCC); Lqvfg-yuxoap-edrb disease (CMS/HCC) Social History Tobacco Use Types [...] as of this encounter Results * CT chest without contrast (2018 1:54 PM CABLEMAN) Anatomical Region Laterality Modality Body N/A Computed Tomogra phy 2018 2:20 PM CABLEMAN Impressions 2018 2:20 PM CABLEMAN 1. ??Resolution of right lower lobe consolidation. 2. ??Moderate to severe upper lobe predominant centrilobular emphysema with right upper lobe scarring. Electronically signed by: Dallas Valiente M.D. Narrative 2018 2:20 PM CABLEMAN EXAMINATION: CT of the chest without contrast. TECHNIQUE: Computed tomographic images of the chest were obtained without intravenous contrast according to standard protocol. HISTORY:AML in remission status post bone marrow transplant with bznyu-ucwndt-lhfx disease. Comparison:CT dated 12/27/2017. ?? FINDINGS:There is [...] remission status post bone marrow transplant with flgeg-jpdkfe-ooir disease. Comparison:CT dated 12/27/2017. FINDINGS:There is unchanged [...] by: Dallas Valiente M.D. Narcisa Kilgore NP IM CT PROCEDURES Final R esult * Pulmonary Function Test -[facility]- CAM-8D; Spirometry with Bronchodilator, DLCO, Lung Volumes, Airway Resistance; Pleth with Airway Resistance; Lung volumes (2018 1:09 PM CABLEMAN) FVC PRED 4.94 0.05 - 9.99 Liters [...] FEV1 POST 1.32 0 - 12 Liters [facility] FEV1 %POST PRED 34 0 - 300 % [facility] FEV1 %CHNG 13 0 - 300 % [facility] FEV1/FVC PRED 79 1 - 99 % [facility] FEV1/FVC PRE 30 0 - 12 % [facility] FEV1/FVC POST 30 0 - 12 % [facility] PLQ88-13% PRED 3.48 0 - 12 L/sec [facility] SAM03-90% PRE 0.29 0 - 12 L/sec [facility] SXJ05-43% %PRE PRED 8 0 - 300 % [facility] CSZ58-15% POST 0.33 0 - 12 L/sec [facility] DQC72-60% %POST PRED 10 0 - 300 % [facility] TCN72-02% %CHNG 13 0 - 300 % [facility] [...] 74 0 - 300 % [facility] FLC299% %CHNG 9 % [facility] PIF PRE 3.51 0 - 18 L/sec [facility] PIF POST 3.28 0 - 18 L/sec [facility] PIF %CHNG -7 0 - 300 % [facility] FEV6 PRE 2.68 0 - 12 Liters [facility] FEV6 POST 3.04 0 - 12 Liters [facility] FEV6 % CHG 14 0 - 300 % [facility] FEV1/FEV6 PRE 44 0 - 12 % [facility] FEV1/FEV6 POST 43 0 - 12 % [facility] VC PRED 4.69 0.05 - 9.99 Liters [facility] VC PRE 4.00 0.05 - 9.99 Liters [facility] VC %PRE PRED 85 0 - 300 % [facility] TLC PRED 6.98 0.05 - 11.99 Liters [facility] TLC PRE 7.89 0.05 - 11.99 Liters [facility] TLC %PRE PRED 113 0 - 300 % [facility] RV PRED 2.08 0.05 - 9.99 Liters [facility] RV PRE 3.89 0.05 - 9.99 Liters [facility] RV %PRE PRED 187 0 - 300 % [facility] RV/TLC PRED 30 0 - 300 % [facility] RV/TLC PRE 49 0 - 300 % [facility] FRC N2 PRED 3.04 0.05 - 9.99 Liters [facility] FRC PL PRED 3.58 0.05 - 9.99 Liters [facility] FRC PL PRE 5.49 0.05 - 9.99 Liters [facility] FRC PL %PRE PRED 153 0 - 300 % [facility] ERV PRED 1.62 0.05 - 9.99 Liters [facility] ERV PRE 1.68 0.05 - 9.99 Liters [facility] ERV %PRE PRED 103 0 - 300 % [facility] IC PRE 2.40 0.05 - 9.99 Liters [facility] DLCO PRED 36.3 0.05 - 99.99 mL/mmHg/min [facility] DLCO PRE 8.8 mL/mmHg/min [facility] DLCO %PRE PRED 24 0 - 300 % [facility] DL ADJ PRED 36.3 1 - 2 mL/mmHg/min [facility] DL ADJ PRE 8.7 1 - 2 mL/mmHg/min [facility] DL ADJ %PRE PRED 24 0 - 300 % [facility] DLCO/VA PRED 5.31 mL/mHg/min/ L [facility] DLCO/VA PRE 1.80 mL/mHg/min/ L [facility] DLCO/VA %PRE PRED 34 % [facility] DL/VA ADJ PRED 4.14 mL/mHg/min/ L [facility] DL/VA ADJ %PRE PRED 43 % [facility] VA PRE 4.92 Liters [facility] RAW PRED 1.25 cmH2O/L/sec [facility] RAW PRE 5.65 cmH2O/L/sec [facility] RAW %PRE PRED 451 % [facility] GAW PRED 0.859 L/sec/cmH2O [facility] GAW PRE 0.177 L/sec/cmH2O [facility] GAW %PRE PRED 21 % [facility] SRAW PRED 4.48 cmH2O/L/s/L [facility] SRAW PRE 36.91 cmH2O/L/s/L [facility] SRAW %PRE PRED 823 % [facility] SGAW PRED 0.228 L/s/cmH2O/L [facility] SGAW PRE 0.027 L/s/cmH2O/L [facility] SGAW %PRE PRED 12 % [facility] Anatomical Region Laterality Modality PFT 2018 12:2 6 PM CABLEMAN Narrative 10/30/2018 10:34 AM CABLEMAN See pdf Narcisa Kilgore FINANCIAL AID ADVISOR PFT ORDERABLES Final Res ult * Uric acid (2018 9:30 AM CABLEMAN) Uric acid 3.1 3.0 - 8.0 mg/dL [facility] Blood specimen (specimen) 2018 9:30 AM CABLEMAN 2018 9:49 AM CABLEMAN Narrative [facility] - 2018 10:30 AM CABLEMAN Narcisa Kilgore FINANCIAL AID ADVISOR LAB BLOOD ORDERABLES Pilar l Result [facility] Department [place] [address] * Tacrolimus level, random (2018 9:30 AM CABLEMAN) Tacrolimus, random <1.0 ng/mL [facility] Comment: Undetectable. ??Please verify that the correct immunosuppressant test was requested. Interpretive Data Testing performed by liquid chromatography-tandem mass spectrometry (LC- MS/MS).This test was developed using an analyte specific reagent. Its performance characteristics were determined by the [facility] in a manner consistent with CLIA requirements. ??This test has not been cleared or approved by the U.S. Food and Drug Administration. Current interpretive data was last revised on 2016. Blood specimen (specimen) 2018 9:30 AM CABLEMAN 2018 9:41 AM CABLEMAN Narrative [facility] - 2018 2:58 PM CABLEMAN Narcisa Kilgore FINANCIAL AID ADVISOR LAB BLOOD ORDERABLES Pilar l Result [facility] Department [place] [address] * Magnesium (2018 9:30 AM CABLEMAN) [facility] Magnesium 1.6 1.4 - 2.5 mg/dL [facility] Blood specimen (specimen) 2018 9:30 AM CABLEMAN 2018 9:49 AM CABLEMAN Narrative [facility] - 2018 10:30 AM CABLEMAN Narcisa Kilgore FINANCIAL AID ADVISOR LAB BLOOD ORDERABLES Pilar l Result [facility] [place] [address] * (ABNORMAL) Lactate dehydrogenase (LD) (2018 9:30 AM CABLEMAN) Lactate dehydrogenase (LDH) 325(H) 100 - 250 Units/L [facility] Blood specimen (specimen) 2018 9:30 AM CABLEMAN 2018 9:49 AM CABLEMAN Narrative [facility] - 2018 10:30 AM CABLEMAN us Narcisa Kilgore NP LAB BLOOD ORDERABLES Pilar armas Result [facility] Department [place] [address] * (ABNORMAL) Comprehensive metabolic panel (2018 9:30 AM CABLEMAN) Sodium 138 135 - 145 mmol/L [facility] Potassium, pl 3.8 3.3 - 4.9 mmol/L [facility] Chloride 97 97 - 110 mmol/L [facility] CO2 35(H) 22 - 32 mmol/L [facility] Anion gap 6 2 - 15 mmol/L [facility] BUN 19 8 - 25 mg/dL [facility] Creatinine 0.87 0.80 - 1.30 mg/dL [facility] Glucose 565(C) 70 - 199 mg/dL [facility] [...] 2017. Calcium 9.1 8.5 - 10.3 mg/dL [facility] Bilirubin, total 0.5 0.1 - 1.2 mg/dL [facility] Protein, pl 6.3(L) 6.5 - 8.5 g/dL [facility] Albumin 4.0 3.5 - 5.0 g/dL [facility] Alk phos 101 40 - 130 Units/L [facility] ALT 48 7 - 55 Units/L [facility] AST 31 10 - 50 Units/L [facility] Blood specimen (specimen) 2018 9:30 AM CABLEMAN 2018 9:49 AM CABLEMAN Narrative [facility] - 2018 10:51 AM CABLEMAN Narcisa Kilgore FINANCIAL AID ADVISOR LAB BLOOD ORDERABLES Pilar pawel Result [facility] Department [place] [address] * (ABNORMAL) CBC with auto differential (2018 9:28 AM CABLEMAN) WBC 13.9(H) 3.8 - 9.8 K/cumm [facility] Comment:Testing performed by : [address] [address] Hgb 15.2 13.8 - 17.2 g/dL [facility] Comment:Testing performed by : [facility], [address] [place] [phone] Hct 44.3 40.7 - 50.3 % [facility] Comment:Testing performed by : [address] [phone] Plt 163 140 - 440 K/cumm [facility] Comment:Testing performed by : [address] [address] MPV 8.7 6.8 - 10.4 fL [facility] Comment:Testing performed by : [address] [phone] RBC 4.05(L) 4.50 - 5.70 M/cumm [facility] Comment:Testing performed by : [address] [address] MCV 109.4(H) 80.0 - 97.6 fL [facility] Comment:Testing performed by : [address] [address] MCH 37.6(H) 26.7 - 33.7 pg [facility] Comment: Result consistent with previously reported values. Testing performed by: [facility], [address] [place] [phone] MCHC 34.4 32.7 - 35.5 g/dL [facility] Comment:Testing performed by : [facility], [address] [place] [phone] RDW CV 14.5 11.8 - 14.6 % [facility] Comment:Testing performed by : [facility], [address] [place] [phone] NRBC abs 0.00 0.00 - 0.01 K/cumm [facility] Comment:Testing performed by : [facility], [address] [place] [phone] Blood specimen (specimen) 2018 9:28 AM CABLEMAN 2018 9:32 AM CABLEMAN Narrative [facility] - 2018 9:37 AM CABLEMAN Narcisa Kilgore NP LAB BLOOD ORDERABLES Pilar l Result [facility] [place] [address] documented in this encounter Visit Diagnoses Diagnosis AML (acute myeloid leukemia) in remission (HCC)- Primary H/O allogeneic bone marrow transplant (HCC) Vslay-udvmzd-xjhk disease (HCC) AML (acute myeloid leukemia) in remission (HCC) H/O allogeneic bone marrow transplant (HCC) Agkkp-hgrdkt-pzta disease (HCC) AML (acute myeloid leukemia) in remission (HCC) H/O allogeneic bone marrow transplant (HCC) Ogwuh-gjcnob-ygiq disease (HCC) AML (acute myeloid leukemia) in remission (HCC) H/O allogeneic bone marrow transplant (HCC) Idxfj-srwypw-uvxp disease (HCC) documented in this encounter Orders Appointment Requests Count Last Ordered Date Fi rst Ordered Date ONCBCN CLINIC APPOINTMENT REQUEST 1 018 ONCBCN LAB APPOINTMENT 1 2018 documented in this encounter Additional Health Concerns 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 September 06, 2011 11/26/2010 11/26/20101 06/2021 5:00 AM CDT documented as of this encounter Care Teams Tip Length Checker Relationship Specialty Start Date End Date Kirt Lindsay DO PCP - General 05/02/17 11/22/20 documented as of this encounter
--- OUTSIDE RECORDS SUMMARY | 2024-11-22 11:08 | XMS_ITS | Encounter Summary ---
Author Organization [facility] Address [address] [place] [address] Phone Care Team Providers Care Sales Operations Lead Name Role Phone Kirt Lindsay DO Primary Care Provider +1- [phone] Encounter Details Date Type Department Care Team (Late st Contact Info) Description 06/24/2018 Orders Only [facility] Bone Marrow Transplant [address] [facility] 7th Floor, [place] [address] Justine Jones RN 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); Fcukh-xkhurb-etlz disease (CMS/HCC) Social History Tobacco Use Types Packs/Day Years Used Date Smoking Tobacco: Every Day Smokeless Tobacco: Never Sex and Gender Information Value Date Recorded Sex Assigned at Not on file 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 Take 40mg for 3 days, then 30mg daily for 3 days, then 20mg for 3 days, then 10mg ongoing. 50 tablet 3 06/24/2018 8 documented in this encounter Plan of Treatment Not on file documented as of this encounter Visit Diagnoses Diagnosis AML (acute myeloid leukemia) in remission (HCC)- Primary Srqbg-xlkyop-ifhr disease (HCC) documented in this encounter Discontinued Medications Medication Sig Discontinue Reason Start Date End Da te predniSONE (DELTASONE) 10 mg tabletIndications:AML (acute myeloid leukemia) in remission (HCC),Rfqgl-ygolqq-quzm disease (HCC) Take 1 tablet (10 mg total) by mouth daily. Reorder 06/09/2018 06/24/2018 documented as of this encounter 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 Care Teams Sales Operations Lead Relationship Specialty Start Date End Date Kirt Lindsay DO PCP - General 05/02/17 11/22/20 documented as of this encounter
--- OUTSIDE RECORDS SUMMARY | 2024-11-22 11:08 | XMS_ITS | Encounter Summary ---
Author Organization [facility] Address [address] [place] [address] Phone Care Team Providers Care Fishing Instructor Name Role Phone Kirt Lindsay DO Primary Care Provider +1- [phone] Encounter Details Date Type Department Care Team (Late st Contact Info) Description 07/28/2018 10:45 AM CDT Office Visit [facility] Bone Marrow Transplant [address] [facility] 7th Floor, [place] [address] Josué Del Valle MD PhD [address] DIV IM BONE MARROW TRANSPLANT, [address] [place] [address] 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); Jogsl-ewaedn-ptzi disease (CMS/HCC); H/O allogeneic bone marrow transplant (CMS/HCC); 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); Type 2 diabetes mellitus with hyperglycemia, with long-term current use of insulin (CMS/HCC) Social History Tobacco Use Types Packs/Day Years Used Date Smoking Tobacco: Every Day Smokeless Tobacco: Never Sex and Gender Information Value Date Recorded Sex Assigned at Not on file Legal Sex Male 10:48 AM HOOK UP Gender Identity Not on file Sexual Orientation Not on file documented as of this encounter Last Filed Vital Signs Vital Sign Reading Time Taken Comments Blood Pressure 103/58 07/28/2018 10:39 AM CDT Pulse 61 07/28/2018 10:39 AM CDT Temperature 36.4 ??C (97.5 ??F) 07/28/2018 10:39 AM C DT Respiratory Rate 18 07/28/2018 10:39 AM CDT Oxygen Saturation 98% 07/28/2018 10:39 AM CDT Inhaled Oxygen Concentration - - Weight 62.6 kg (138 lb) 07/28/2018 10:39 AM CDT Height 178.5 cm (5' 10.28 ) 07/28/2018 10:39 AM CDT Body Mass Index 19.65 07/28/2018 10:39 AM CDT documented in this encounter Ordered Prescriptions Prescription Sig Dispense Quantity Refills Last Filled Start Date End Date atorvastatin (LIPITOR) 40 mg tabletIndications: AML (acute myeloid leukemia) in remission (HCC),Type 2 diabetes mellitus with hyperglycemia, with long-term current use of insulin (HCC),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 TREATMENT HISTORY: 1. Induction with 7+3 and HiDAC consolidation x3. 2. Decitabine maintenance on the CALGB 14459 protocol. 3. Relapsed disease, status post [facility]. 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 TREATMENT HISTORY: Status post an allogeneic transplant with busulfan and Cytoxan on the AMD allogeneic study with hissister, 08/27 match; with day 0 on 11/09/2009. INTERVAL HISTORY: Mr. Jones carries a diagnosis of AML. He is 3183 days post sib aloe transplant for after a Bu/Cystandard of care conditioning regimen. He was recently discharged from a local hospital on July 18 for a presumed pneumonia. 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 He has also had full dental extractions. He has dentures but they do not fit well. Of note is that his [facility] at [facility] apparently were normal. No obvious evidence of pneumonia. They were just hyperinflated chest x-rays consistent with some underlying COPD. MEDICATIONS: Full medication review with patient. See Allscripts/Plan for complete list of medications. REVIEW OF SYSTEMS: Twelve-point systems reviewed and positive as above in Interval History. All other systems negative. PHYSICAL EXAMINATION: General: Thin, well-appearing male, no acute distress. Vital Signs: Blood pressure 103/58, weight 62 kg, down 1 kg from his last visit. Neck: Supple nontender without thyromegaly or adenopathy. HEENT: Xerophthalmia and xerostomia and edentulous. Visual leger intact. Fundi benign. Disc margins sharp bilaterally. Chest: Clear to auscultation percussion. Cardiovascular: S1, S2 without rubs, murmurs or gallops. Abdominal: Without organomegaly. Neurologic: Grossly intact. Extremities and Skin: Unremarkable except for dry skin and some thickening especially in his upper extremities and lower extremities. LABORATORY DATA: White count is 8.3, hemoglobin 13.1, platelet count 212,000. IMPRESSION: 1. Recent admission for pneumonia. 2. Acute myeloid leukemia, 3183 days post sib aloe transplant after Bu/Cy conditioning regimen ANTIONE. 3. 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 4. Multiple admissions for infections. 5. Edentulous due to poor dentition and chronic GVHD of the mouth, otherwise stable. ELECTRONICALLY SIGNED - 07/28/2018 02:05 PM Josué Del Valle M.D., Ph.D. Chief, Division of Oncology/bodywork therapist Section of BMT & Leukemia CHRISTOPHER/lebron documented in this encounter Plan of Treatment Not on file documented as of this encounter Results * Tacrolimus level, random (07/28/2018 10:17 AM CDT) Tacrolimus, random <1.0 ng/mL [facility] Comment: Undetectable. ??Please verify that the correct immunosuppressant test was requested. Interpretive Data Testing performed by liquid chromatography-tandem mass spectrometry (LC- MS/MS).This test was developed using an analyte specific reagent. ?? Its performance characteristics were determined by the [facility] in a manner consistent with CLIA requirements. ??This test has not been cleared or approved by the U.S. Food and Drug Administration. Current interpretive data was last revised on 2016. Blood specimen (specimen) 07/28/2018 10:17 AM CDT 07/28/2018 10:43 AM CDT Narrative [facility] - 07/28/2018 1:14 PM CDT Narcisa Kilgore NP LAB BLOOD ORDERABLES Pilar armas Result [facility] [place] [address] documented in this encounter Visit Diagnoses Diagnosis AML (acute myeloid leukemia) in remission (HCC)- Primary Objgr-xjktih-zyiw disease (HCC) H/O allogeneic bone marrow transplant (HCC) Acute myeloid leukemia in remission (HCC) Acute myeloid leukemia in remission Type 2 diabetes mellitus with hyperglycemia, with long-term current use of insulin (HCC) Acute myeloid leukemia in remission (HCC) 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 (HCC) Njvlk-qinxhp-szxt disease (HCC) AML (acute myeloid leukemia) in remission (HCC) documented in this encounter Discontinued Medications Medication Sig Discontinue Reason Start Date End Da te atorvastatin (LIPITOR) 40 mg tabletIndications:AML (acute myeloid leukemia) in remission (HCC),Type 2 diabetes mellitus with hyperglycemia, with long-term current use of insulin (HCC) Take 1 tablet by mouth daily. Reorder 12/14/2016 07/28/2018 documented as of this encounter Historical Medications * This list may reflect changes made after this encounter. Medication Sig Dispense Quantity Refills Last Filled Start D ate End Date levoFLOXacin (LEVAQUIN) 750 mg tabletIndications:AML (acute myeloid leukemia) in remission (HCC),Lakby-mqmxui-dm st disease (HCC),H/O allogeneic bone marrow transplant (HCC),Type 2 diabetes mellitus with hyperglycemia, with long-term current use of insulin (HCC) 07/17/2018 10/27/20 18 HUMALOG KWIKPEN INSULIN 100 unit/mL insulin penIndications:AML (acute myeloid leukemia) in remission (HCC),Wadbp-jveafw-cx st disease (HCC),H/O allogeneic bone marrow transplant (HCC),Type 2 diabetes mellitus with hyperglycemia, with long-term current use of insulin ([facility]) 07/17/2018 11/24/19 19 azithromycin (ZITHROMAX) 250 mg tabletIndications:AML (acute myeloid leukemia) in remission (HCC),Ansvw-ubnuye-aq st disease (HCC),H/O allogeneic bone marrow transplant (HCC),Type 2 diabetes mellitus with hyperglycemia, with long-term current use of insulin ([facility]) 07/09/2018 10/27/20 18 added in this encounter Orders Appointment Requests Count Last Ordered Date Fi rst Ordered Date ONCBCN CLINIC APPOINTMENT REQUEST 1 018 documented in this encounter 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 Care Teams Fishing Instructor Relationship Specialty Start Date End Date Kirt Lindsay DO PCP - General 05/02/17 11/22/20 documented as of this encounter
--- OUTSIDE RECORDS SUMMARY | 2024-11-22 11:08 | XMS_ITS | Encounter Summary ---
Author Organization [facility] Address [address] [place] [address] Phone Care Team Providers Care Business Administration Instructor Name Role Phone Kirt Lindsay DO Primary Care Provider +1- [phone] Encounter Details Date Type Department Care Team (Late st Contact Info) Description 06/09/2018 Orders Only [facility] Bone Marrow Transplant [address] [facility] Medicine 7th Floor, [place] [address] Silva Mortensen RMA 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); Rhugb-spklci-sumy disease (CMS/HCC) Social History Tobacco Use Types Packs/Day Years Used Date Smoking Tobacco: Every Day Smokeless Tobacco: Never Sex and Gender Information Value Date Recorded Sex Assigned at Not on file Legal 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 30 tablet 3 06/09/2018 06/24/2018 documented in this encounter Plan of Treatment Not on file documented as of this encounter Visit Diagnoses Diagnosis AML (acute myeloid leukemia) in remission (HCC) Fjqhg-mdsgzs-hkmv disease (HCC) documented in this encounter Discontinued Medications Medication Sig Discontinue Reason Start Date End Da te predniSONE (DELTASONE) 10 mg tabletIndications:AML (acute myeloid leukemia) in remission (HCC),Icwmc-sxtiti-zmfl disease (HCC) TAKE ONE TABLET BY MOUTH ONCE DAILY. Reorder 06/09/2018 06/09/2018 documented as of this encounter 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 Care Teams Business Administration Instructor Relationship Specialty Start Date End Date Kirt Lindsay DO PCP - General 05/02/17 11/22/20 documented as of this encounter
--- OUTSIDE RECORDS SUMMARY | 2024-11-22 11:08 | XMS_ITS | Encounter Summary ---
Author Organization [facility] of [facility] Address [address] [place] [address] Phone Care Team Providers Care Sales Closer Name Role Phone Kirt Lindsay DO Primary Care Provider +1- [phone] Encounter Details Date Type Department Care Team (Late st Contact Info) Description 08/01/2018 Orders Only [facility] Oncology [address] [facility] Advanced Medicine 7th [place] [address] [place] [address] Eneida Gibson MD [address] [place] [address] Osteopenia, unspecified location (Primary Dx); 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); Lxseb-cttxpe-qfuv disease (CMS/HCC); H/O allogeneic bone marrow transplant (CMS/HCC) Social History Tobacco Use Types Packs/Day Years Used Date Smoking Tobacco: Every Day Smokeless Tobacco: Never Sex and Gender Information Value Date Recorded Sex Assigned at Not on file Legal Sex Male 10:48 AM 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 4 capsule 3 08/01/2018 9 documented in this encounter Plan of Treatment Not on file documented as of this encounter Visit Diagnoses Diagnosis Osteopenia, unspecified location- Primary Acute myeloid leukemia in remission (HCC) Acute myeloid leukemia in remission Spbhx-gmyysq-bgwz disease (HCC) H/O allogeneic bone marrow transplant (HCC) documented in this encounter Discontinued Medications Medication Sig Discontinue Reason Start Date End Da te ergocalciferol (VITAMIN D) 50,000 unit capsuleIndications:Acute myeloid leukemia in remission (HCC),Snjea-wtqxfb-pqxw disease (HCC),H/O allogeneic bone marrow transplant (HCC) Take 1 capsule by mouth once a week. Reorder 03/14/2018 08/01/2018 documented as of this encounter 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 Care Teams Sales Closer Relationship Specialty Start Date End Date Kirt Lindsay DO PCP - General 05/02/17 11/22/20 documented as of this encounter
--- OUTSIDE RECORDS SUMMARY | 2024-11-22 11:08 | XMS_ITS | Encounter Summary ---
Author Organization [facility] Address [address] [place] [address] Phone Care Team Providers Care Testing Tech Name Role Phone Kirt Lindsay DO Primary Care Provider +1- [phone] Encounter Details Date Type Department Care Team (Late st Contact Info) Description 08/01/2018 11:40 AM CDT Office Visit [facility] Oncology [address] [facility] Advanced Medicine 7th [place] [address] [place] [address] Eneida Gibson MD [address] [place], [place] [id number] Osteopenia, unspecified location (Primary Dx); Type 2 diabetes mellitus with hyperglycemia, with long-term current use of insulin ([facility]); Pure hypercholesterolemia; Vitamin D deficiency Social History [...] Sign Reading Time Taken Comments Blood Pressure 101/57 08/01/2018 11:27 AM CDT Pulse 60 08/01/2018 11:27 AM CDT Temperature 36.3 ??C (97.3 ??F) 08/01/2018 11:27 AM C DT Respiratory Rate 18 08/01/2018 11:27 AM CDT Oxygen Saturation 94% 08/01/2018 11:27 AM CDT Inhaled Oxygen Concentration - - Weight 62.3 kg (137 lb 4.8 oz) 08/01/2018 11:27 AM CDT Height - - Body Mass Index 19.55 07/28/2018 10:39 AM CDT documented in this encounter Patient Instructions * Patient Instructions* Eneida Rico MD - 08/01/2018 11:40 AM CDT Vitamin D3 1000 units daily Calcium 500-600 mg daily documented in this encounter Progress Notes * Eneida Rico MD - 08/01/2018 11:40 AM CDT Subjective Patient is a 52 y.o. 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 In November he was admitted to the hospital for a pneumonia. 2 weeks ago he developed difficulty breathing, he was admitted to the hospital and stated on high dose steroids again. He has been tapered back to 10 mg daily. He has been taking weekly ergocalciferol and OTC vitamin D 1000 IU when he can afford it. Drinks milk and eats cheeses. Denies falls or fractures. No back pain. He walks for exercise . He now works at [employer]. For T2DM he has been taking metformin 500 mg BID. Checks his BS twice daily and they range between 100-140. He only takes metformin if his BS is [id number]. Eats frequently at [employer]. Has neuropathy and takes gabapentin at night occasionally. He doesn't have retinopathy, has cataracts from prednisone use. No nephropathy. Takes atorvastatin 40 mg daily. Still smokes about 10 cigarettes daily. Also uses e cigarettes. DIAGNOSES: 1. 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 T2DM 4. Hyperlipidemia-on atorvastatin 5. Osteopenia. CURRENT MEDICATIONS: Current Outpatient Prescriptions: ??? acyclovir (ZOVIRAX) 400 mg tablet, TAKE ONE TABLET BY MOUTH EVERY 8 HOURS, Disp: 270 tablet, Rfl: 1 ??? atorvastatin (LIPITOR) 40 mg tablet, Take 1 tablet (40 mg total) by mouth daily., Disp: , Rfl: ??? azithromycin (ZITHROMAX) 250 mg tablet, , Disp: , Rfl: ??? ergocalciferol (VITAMIN D) 50,000 unit capsule, Take 1 capsule by mouth once a week., Disp: , Rfl: ??? fludrocortisone 0.1 mg tablet, Take 1 tablet by mouth 2 times daily., Disp: , Rfl: ??? fluticasone-salmeterol (ADVAIR DISKUS) 100-50 mcg/dose diskus inhaler, Inhale 1 puff 2 times daily., Disp: , Rfl: ??? gabapentin (NEURONTIN) 100 mg capsule, Take 1 capsule by mouth daily., Disp: , Rfl: ??? glucagon (glucagon) 1 mg kit, USE DIRECTED AT SCHOOL AND HOME, Disp: , Rfl: ??? HUMALOG KWIKPEN INSULIN 100 unit/mL insulin pen, , Disp: , Rfl: ??? levoFLOXacin (LEVAQUIN) 750 mg tablet, , Disp: , Rfl: ??? metFORMIN XR (GLUCOPHAGE XR) 500 mg 24 hr tablet, Take 1 tablet by mouth 2 (two) times a day., Disp: , Rfl: ??? mycophenolate mofetil (CELLCEPT) 500 mg tablet, Take 2 tablets (1,000 mg total) by mouth 2 (two) times a day., Disp: 120 tablet, Rfl: 2 ??? nicotine (NICODERM CQ) 7 mg, Place on the skin., Disp: , Rfl: ??? predniSONE (DELTASONE) 10 mg tablet, Take 4 tablets (40 mg total) by mouth daily. Take 40mg for3 days, then 30mg daily for 3 days, then 20mg for 3 days, then 10mg ongoing., Disp: 50 tablet, Rfl:3 ??? tacrolimus (PROGRAF) 0.5 mg capsule, Take 1 capsule (0.5 mg total) by mouth daily., Disp: 60 capsule, Rfl: 6 ??? VENTOLIN HFA 90 mcg/actuation inhaler, Inhale 1-2 puffs every 4 (four) hours as needed for shortness of breath., Disp: 1 Inhaler, Rfl: 2 ??? XARELTO 20 mg tablet, Take 1 tablet (20 mg total) by mouth daily., Disp: 30 tablet, Rfl: 2 Review of Systems: Review of Systems All other systems reviewed and are negative. As per HPI. Objective Vitals: Most Recent : Vitals BP 101/57 (BP Location: Right arm) Pulse 60 Temp 36.3 ??C (97.3 ??F) (Oral) Resp 18 Wt 62.3 kg (137 lb 4.8 oz) SpO2 94% BMI 19.55 kg/m?? Physical Exam: Physical Exam Constitutional: He [...] Musculoskeletal: He exhibits no edema or deformity. Right knee: He exhibits swelling. Left knee: He exhibits swelling. Neurological: He is oriented to person, place, and time. Skin: Skin is warm. No rash noted. No erythema. Psychiatric: He has a normal mood and affect. Lab/Radiology/Diagnostic Review: Laboratory review: reviewed the laboratory result(s) below Results for BRI JONES ( ) as of 08/04/2018 15:32 Ref. Range 07/28/2018 10:17 Sodium Latest Ref Range: 135 - 145 mmol/L 141 Potassium, pl Latest Ref Range: 3.3 - 4.9 mmol/L 3.6 Chloride Latest Ref Range: 97 - 110 mmol/L 105 CO2 Totl Latest Ref Range: 22 - 32 mmol/L 29 Anion Gap Latest Ref Range: 2 - 15 mmol/L 7 BUN Latest Ref Range: 8 - 25 mg/dL 8 Creatinine Latest Ref Range: 0.80 - 1.30 mg/dL 0.78 (L) Glucose, Serum Latest Ref Range: 70 - 199 mg/dL 217 (H) Calcium Latest Ref Range: 8.5 - 10.3 mg/dL 8.5 Bilirubin, total Latest Ref Range: 0.1 - 1.2 mg/dL 0.3 Protein, pl Latest Ref Range: 6.5 - 8.5 g/dL 6.2 (L) Albumin Latest Ref Range: 3.5 - 5.0 g/dL 3.2 (L) Alk phos Latest Ref Range: 40 - 130 Units/L 146 (H) ALT Latest Ref Range: 7 - 55 Units/L 39 AST Latest Ref Range: 10 - 50 Units/L 32 Lactate dehydrogenase (LDH) Latest Ref Range: 100 - 250 Units/L 324 (H) Ref. Range 06/06/2018 09:25 Hgb A1C Latest Ref Range: 4.0 - 5.6 % 6.3 (H) DEXA 07/2018 BONE MINERAL DENSITY OF THE [...] Visit High Type 2 diabetes mellitus (CMS/HCC) -Hgb A1C at goal but had elevated BS on CMPs -will continue metformin 500 mg BID -monofilament exam 12/14/16: decreased sensation in R foot, normal sensation in L foot -ophthalmology exam UTD: no retinopathy, has cataracts -BP at goal Relevant Orders Clinic Appointment Request Follow up; ARNIE RICO MD Lab Draw Appt Request Arm Draw or Central Line Draw? Central Line Vitamin D 25 hydroxy TSH Hemoglobin A1c Comprehensive metabolic panel Vitamin D 25 hydroxy Hemoglobin A1c TSH Microalbumin / creatinine ratio, urine, random Lipid panel Unprioritized Osteopenia - Primary -involving the hip -DEXA scan done today revealed a small decrease in the BMD of his spine and stable BMD in his hip -unfortunately he was restarted on prednisone early this year and remains on 10 mg daily -I asked his to restart calcium 600 mg daily and vitamin D supplements -discussed the importance of smoking cessation and exercise Relevant Orders Clinic Appointment Request Follow up; ENEIDA RICO; Lab Draw Appt Request Arm Draw or Central Line Draw? Central Line Vitamin D 25 hydroxy TSH Hemoglobin A1c Comprehensive metabolic panel Vitamin D 25 hydroxy Hemoglobin A1c TSH Microalbumin / creatinine ratio, urine, random Lipid panel Pure hypercholesterolemia -LDL at goal -will continue atorvastatin 40 mg daily Vitamin D deficiency -vitamin D level still below normal - I asked him to restart and be compliant with vitamin D3 1000 IU daily RTC in 6 months documented in this encounter Miscellaneous Notes * Assessment & Plan Note - Eneida Rico MD - 08/04/2018 3:38 PM CDTAssociated Problem(s): Vitamin D deficiency -vitamin D level still below normal - I asked him to restart and be compliant with vitamin D3 1000 IU daily * Assessment & Plan Note - Eneida Rico MD - 08/04/2018 3:36 PM CDTAssociated Problem(s): Osteopenia -involving the hip -DEXA scan done today revealed a small decrease in the BMD of his spine and stable BMD in his hip -unfortunately he was restarted on prednisone early this year and remains on 10 mg daily -I asked his to restart calcium 600 mg daily and vitamin D supplements -discussed the importance of smoking cessation and exercise * Assessment & Plan Note - Eneida Rico MD - 08/04/2018 3:35 PM CDTAssociated Problem(s): Pure hypercholesterolemia -LDL at goal -will continue atorvastatin 40 mg daily * Assessment & Plan Note - Eneida Rico MD - 08/04/2018 3:34 PM CDTAssociated Problem(s): Type 2 diabetes mellitus (HCC) -Hgb A1C at goal but had elevated BS on CMPs -will continue metformin 500 mg BID -monofilament exam 12/14/16: decreased sensation in R foot, normal sensation in L foot -ophthalmology exam UTD: no retinopathy, has cataracts -BP at goal documented in this encounter Plan of Treatment Not on file documented as of this encounter Results * (ABNORMAL) Lipid panel (05/29/2019 11:18 AM CDT) Cholesterol 193 30 - 199 mg/dL [facility] Comment: Interpretive Data Ages < or = [...] on 2018. Triglycerides 266(H) <=149 mg/dL [facility] Comment: Interpretive Data Ages < or = [...] revised on 2018. HDL 74 >=40 mg/dL [facility] Comment: Interpretive Data Ages [...] on 2018. LDL, calculated 66 <=129 mg/dL [facility] Comment: Interpretive Data Ages [...] revised on 2018. Non-HDL Cholesterol 119 mg/dL [facility] Comment: Interpretive Data Ages [...] last revised on 2018. Chol/HDL ratio 3 [facility] Blood specimen (specimen) 05/29/2019 11:18 AM CDT 05/29/2019 11:45 AM CDT Eneida Gibson MD LAB BLOOD ORDERABLES Final Resul t Performing Organization Address [facility] de Phone Number [facility] Department [place] [address] * TSH (05/29/2019 11:18 AM CDT) Thyroid Stimulating Hormone 1.02 0.30 - 4.20 mcIUnit/mL [facility] Blood specimen (specimen) 05/29/2019 11:18 AM CDT 05/29/2019 11:45 AM CDT Eneida Gibson MD LAB BLOOD ORDERABLES Final Resul t Performing Organization Address [facility] de Phone Number [facility] Department [place] [address] * (ABNORMAL) Hemoglobin A1c (05/29/2019 11:18 AM CDT) Hgb A1C 14.7(H) 4.0 - 5.6 % [facility] Estimated Average Glucose 375 mg/dL [facility] Comment: The ADA recommends reporting an estimated Average Glucose (eAG) with all Hemoglobin A1c results using the equation derived from a study of 507 normal and diabetic adults. ??Minority populations were underrepresented and children were not included. ?? (Diabetes Care 31:9390-6286, 2008). ??The eAG is not equivalent to a fasting glucose. Blood specimen (specimen) 05/29/2019 11:18 AM CDT 05/29/2019 11:45 AM CDT Eneida Gisbon MD LAB BLOOD ORDERABLES Final Resul t Performing Organization Address [facility]/ZIP Co de Phone Number [facility] Department [place] [address] * (ABNORMAL) Vitamin D 25 hydroxy (05/29/2019 11:18 AM CDT) Pathologist [facility] Vitamin D 25-OH 14(L) 30 - 80 ng/mL [facility] Blood specimen (specimen) 05/29/2019 11:18 AM CDT 05/29/2019 11:45 AM CDT Eneida Gibson MD LAB BLOOD ORDERABLES Final Resul t Performing Organization Address [facility] de Phone Number [facility] Department [place] [address] * (ABNORMAL) Comprehensive metabolic panel (05/29/2019 11:18 AM CDT) Sodium 134(L) 135 - 145 mmol/L [facility] Potassium, pl 4.9 3.3 - 4.9 mmol/L [facility] Comment:Hemolyzed; (+++); po tassium value may be falsely elevated by as much as 0.6 - 1.0 mmol/L. Suggest redraw and reanalysis. Chloride 94(L) 97 - 110 mmol/L [facility] CO2 28 22 - 32 mmol/L [facility] Anion gap 12 2 - 15 mmol/L [facility] BUN 19 8 - 25 mg/dL [facility] Creatinine 0.79(L) 0.80 - 1.30 mg/dL [facility] Glucose 331(H) 70 - 199 mg/dL [facility] Comment: Interpretive Data Fasting glucose [...] 2017. Calcium 9.5 8.5 - 10.3 mg/dL [facility] Bilirubin, total 0.4 0.1 - 1.2 mg/dL [facility] Protein, pl 6.7 6.5 - 8.5 g/dL [facility] Albumin 3.8 3.5 - 5.0 g/dL [facility] Alk phos 104 40 - 130 Units/L [facility] ALT 35 7 - 55 Units/L [facility] AST 32 10 - 50 Units/L [facility] Comment:Hemolyzed; result ma y be falsely elevated. Blood specimen (specimen) 05/29/2019 11:18 AM CDT 05/29/2019 11:45 AM CDT us Eneida Gibson MD LAB BLOOD ORDERABLES Final Resul t [facility] Department of Laboratories [place], [place] [id number] documented in this encounter Visit Diagnoses Diagnosis Osteopenia, unspecified location- Primary Type 2 diabetes mellitus with hyperglycemia, with long-term current use of insulin (HCC) Pure hypercholesterolemia Vitamin D deficiency documented in this encounter Historical Medications * This list may reflect changes made after this encounter. gabapentin (NEURONTIN) 300 mg capsule Take 300 mg by mouth as needed. 11/25/2018 added in this encounter 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 Care Teams Testing Tech Relationship Specialty Start Date End Date Kirt Lindsay DO PCP - General 05/02/17 11/22/20 documented as of this encounter
--- OUTSIDE RECORDS SUMMARY | 2024-11-22 11:08 | XMS_ITS | Encounter Summary ---
Author Organization [facility] Address [address] [facility] [address] [place] [address] Phone Care Team Providers Care Patrol Sergeant Sheriff'[employer] Office Name Role Phone Kirt Lindsay DO Primary Care Provider +1- [phone] Encounter Details Date Type Department Care Team (Late st Contact Info) Description 06/24/2018 Orders Only [facility] Bone Marrow Transplant [address] [facility] Medicine 7th Floor, [place] [address] Silva Mortensen RMA 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); Ubexb-zjvncp-eyli disease (CMS/HCC) Social History Tobacco Use Types Packs/Day Years Used Date Smoking Tobacco: Every Day Smokeless Tobacco: Never Sex and Gender Information Value Date Recorded Sex Assigned at Not on file 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 30 capsule 6 06/24/2018 8 documented in this encounter Plan of Treatment Not on file documented as of this encounter Visit Diagnoses Diagnosis AML (acute myeloid leukemia) in remission (HCC) Gvbix-ctrjfg-mkbr disease (HCC) documented in this encounter Discontinued Medications Medication Sig Discontinue Reason Start Date End Da te tacrolimus (PROGRAF) 0.5 mg capsuleIndications:AML (acute myeloid leukemia) in remission (HCC),Bhfef-ukzyjl-eieu disease (HCC) Take 1 capsule by mouth every other day. Reorder 11/03/2012 06/24/2018 documented as of this encounter 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 Care Teams Patrol Sergeant Sheriff'S Office Relationship Specialty Start Date End Date Kirt Lindsay DO PCP - General 05/02/17 11/22/20 documented as of this encounter
--- OUTSIDE RECORDS SUMMARY | 2024-11-22 11:08 | XMS_ITS | Encounter Summary ---
Author Organization [facility] Address [address] [place] [address] Phone Care Team Providers Care [employer] Machine Mechanic Name Role Phone Kirt Lindsay DO Primary Care Provider +1- [phone] Encounter Details Date Type Department Care Team (Late st Contact Info) Description 06/13/2018 Orders Only [facility] Bone Marrow Transplant [address] 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
--- OUTSIDE RECORDS SUMMARY | 2024-11-22 11:08 | XMS_ITS | Encounter Summary ---
Author Organization [facility] Address [address] [place] [address] Phone Care Team Providers Care Discovery Manager Name Role Phone Kirt Lindsay DO Primary Care Provider [phone] Reason for Visit * Diagnostic Imaging (Routine) - Canceled Specialty Diagnoses / Procedures Referred By Ana M t Referred To Contact Diagnoses Osteopenia of multiple sites Procedures Dexa Axial Skeleton Bone Density 1 or 2 Site Eneida Gibson MD Phone: tel: [facility] (All Locations) Referral ID Status Reason Start Date Expiration Date V isits Requested Visits Authorized [id number] Canceled 03/25/2018 11/04/2019 1 1 Encounter Details Date Type Department Care Team (Latest Contact Info) Description 08/01/2018 10:50 AM CDT Clinical Support [place] [id number] [facility] 5[address] [place] [address] [place] [address] Osteopenia of multiple sites; Osteopenia of left hip; termination clerk 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 Social History Tobacco Use Types Packs/Day Years Used Date Smoking Tobacco: Every Day Smokeless Tobacco: Never Sex and Gender Information Value Date Recorded Sex Assigned at Not on file 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 Gender Identity Not on file Sexual Orientation Not on file documented as of this encounter Plan of Treatment Not on file documented as of this encounter Procedures Procedure Name Priority Date/Time Associated Diagnosis Comments DEXA AXIAL SKELETON BONE DENSITY 1 OR MORE SITES Schedule Routine, Read Routine (OP Routine) 08/01/2018 10:49 AM CDT Osteopenia of multiple sites documented in this encounter Results * Dexa Axial Skeleton Bone Density 1 or 2 Site (08/01/2018 10:49 AM CDT) Anatomical Region Laterality Modality Body N/A Radiographic Tiffany ging Narrative 08/04/2018 12:40 PM CDT Patient Name: Brady Jones Date of : 1965 Date of scan: 08/01/2018 Bone mineral density was performed on a Bottle Discovery Densitometer. ?? Machine Cross-calibration and Precision studies have been performed with a least significant change of 0.024 g/cm at the spine, 0.020 g/cm at the total proximal femur, and 0.014g/cm at the forearm. HISTORY: ??This is a 52 y.o. ?? male with a history of bone marrow transplant, low bone mass and AML. Currently on treatment with glucocorticoids and vitamin D. History of tobacco use: History Smoking Status ? ? Current Every Day Smoker INDICATIONS: treatment monitoring, history of glucocorticoids use, currently on 10 mg of glucocorticoids for the past 10 year(s) and history of low bone mass. FINDINGS: [...] increased fracture risk. There has been significant decrease in bone mineral density since previous measurement. [...] bone mineral density scan were prepared by Bela Bauman (R)(CBDT) who is accredited by the International Society of Clinical Densitometry. The overall patient assessment and scan interpretation were performed by Justine Banks M.D. who is certified by the International Society of Clinical Densitometry. [id number] Eneida Gibson MD IMG DXA PROCEDURES Final Result documented in this encounter Visit Diagnoses Diagnosis Osteopenia of multiple sites Osteopenia of left hip termination clerk 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 documented in this encounter 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 Care Teams Discovery Manager Relationship Specialty Start Date End Date Kirt Lindsay DO PCP - General 05/02/17 11/22/20 documented as of this encounter
--- OUTSIDE RECORDS SUMMARY | 2024-11-22 11:08 | XMS_ITS | Encounter Summary ---
Author Organization [facility] Address [address] [place] [address] Phone Care Team Providers Care Clother In Name Role Phone Kirt Lindsay DO Primary Care Provider [phone] Encounter Details Date Type Department Care Team (Latest Contact Info) Description 06/22/2018 Orders Only [facility] Scanning, Provider Social History Tobacco Use Types Packs/Day Years Used Date Smoking Tobacco: Every Day Smokeless Tobacco: Never Sex and Gender Information Value Date Recorded Sex Assigned at Not on file 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 Gender Identity Not on file Sexual Orientation Not on file documented as of this encounter Plan of Treatment Not on file documented as of this encounter Procedures Procedure Name Priority Date/Time Associated Diagnosis Comments SCAN - RADIOLOGY/IMAGING 06/22/2018 documented in this encounter Results * SCAN - RADIOLOGY/IMAGING (06/22/2018) Anatomical Region Laterality Modality Other us Provider Scanning Final Result documented in this encounter Visit Diagnoses Not on filedocumented in this encounter 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 Care Teams Clother In Relationship Specialty Start Date End Date Kirt Lindsay DO PCP - General 05/02/17 11/22/20 documented as of this encounter
--- OUTSIDE RECORDS SUMMARY | 2024-11-22 11:09 | XMS_ITS | Encounter Summary ---
Author Organization [facility] Healthcare Address [address] [place] [place] [address] Care Team Providers Care Senior Paralegal Name Role Phone Kirt Lindsay DO Primary Care Provider [phone] Encounter Details Date Type Department Care Team (Latest Contact Info) Description 11/26/2017 3:54 PM ECONOMIC DEVELOPMENT MANAGER - 02/24/2018 11:59 PM CDT Hospital Encounter MERGED WITH [facility] OP INTERIM [phone] Eneida Gibson MD [address] [place] [address] Discharge Disposition: Discharge to home or self care Social History Tobacco Use Types Packs/Day Years Used Date Smoking Tobacco: Every Day Sex and Gender Information Value Date Recorded Sex Assigned at Not on file Legal Sex Male 10:48 AM ECONOMIC DEVELOPMENT MANAGER Gender Identity Not on file Sexual Orientation Not on file documented as of this encounter Medications at Time of Discharge acyclovir (ZOVIRAX) 400 mg tabletIndication s: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 05/24/2010 07/28/2018 atorvastatin (LIPITOR) 40 mg tabletIndication s:AML (acute myeloid leukemia) in remission (HCC),Type 2 diabetes mellitus with hyperglycemia, with long-term current use of insulin ([facility]) Take 1 tablet by mouth daily. 12/14/2016 07/28/2018 fludrocortisone 0.1 mg tabletIndication s:AML (acute myeloid leukemia) in remission (HCC) Take 1 tablet by mouth 2 times daily. 12/18/2017 08/24/2018 fluticasone-salm eterol (ADVAIR DISKUS) 100-50 mcg/dose diskus inhalerIndicatio ns:AML (acute myeloid leukemia) in remission (HCC) Inhale 1 puff 2 times daily. 12/18/2017 09/07/2018 gabapentin (NEURONTIN) 100 mg capsuleIndicatio ns:AML (acute myeloid leukemia) in remission (HCC) Take 1 capsule by mouth as needed. 05/31/2017 11/25/2018 glucagon (glucagon) 1 mg kitIndications:A ML (acute myeloid leukemia) in remission ([facility]) USE DIRECTED AT SCHOOL AND HOME 12/14/2013 11/28/2019 insulin glargine (LANTUS U-100 INSULIN) 100 unit/mL injectionIndicat ions:AML (acute myeloid leukemia) in remission (HCC),Type 2 diabetes mellitus with hyperglycemia, with long-term current use of insulin ([facility]) INJECT 15 UNIT BEDTIME 12/18/2017 06/06/2018 insulin lispro (HumaLOG U-100 Insulin) 100 unit/mL injectionIndicat ions:AML (acute myeloid leukemia) in remission (HCC),Type 2 diabetes mellitus with hyperglycemia, with long-term current use of insulin ([facility]) 1-3 units subQ 3 times a day sliding scale for greater than 150 (1u for every 25 over 150) 12/18/2017 06/06/2018 metFORMIN XR (GLUCOPHAGE XR) 500 mg 24 hr tabletIndication s:AML (acute myeloid leukemia) in remission (HCC) Take 1 tablet by mouth 2 (two) times a day. 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 11/03/2012 07/17/2018 nicotine (NICODERM CQ) 7 mgIndications:AM L (acute myeloid leukemia) in remission (HCC) Place on the skin. 12/18/2017 11/25/2018 pen needle, diabetic (BD ULTRA-FINE MINI PEN NEEDLE) 31 gauge x 3/16 needleIndication s:AML (acute myeloid leukemia) in remission (HCC),Type 2 diabetes mellitus with hyperglycemia, with long-term current use of insulin (HCC) USE DIRECTED. 08/31/2015 06/06/2018 predniSONE (DELTASONE) 10 mg tabletIndication s:AML (acute myeloid leukemia) in remission (HCC),Graft-vers us-host disease (HCC) Take 1 tablet by mouth daily. 12/18/2017 06/09/2018 tacrolimus (PROGRAF) 0.5 mg capsuleIndicatio ns:AML (acute myeloid leukemia) in remission (HCC),Graft-vers us-host disease (HCC) Take 1 capsule by mouth every other day. 11/03/2012 06/24/2018 documented as of this encounter Discharge Disposition Disposition Code Departure Means Destination Discharge to home or self care documented in this encounter Plan of Treatment Not on file documented as of this encounter Procedures Procedure Name Priority Date/Time Associated Diagnosis Comments CBC WITH AUTO DIFFERENTIAL Routine Gen Lab 02/24/2018 10:39 AM CDT THYROID FUNCTION CASCADE Routine Gen Lab 02/24/2018 10:35 AM CDT VITAMIN D 25 HYDROXY Routine Gen Lab 02/24/2018 10:35 AM CDT TOTAL TESTOSTERONE Routine Gen Lab 02/24/2018 10 :35 AM CDT LACTATE DEHYDROGENASE Routine Gen Lab 02/24/2018 10:35 AM CDT HEMOGLOBIN A1C Routine Gen Lab 02/24/2018 10:35 AM CDT LIPID PANEL Routine Gen Lab 02/24/2018 10:35 AM CDT COMPREHENSIVE METABOLIC PANEL Routine Gen Lab 02/24/2018 10:35 AM CDT CBC WITH AUTO DIFFERENTIAL Routine Gen Lab 12/27/2017 11:35 AM ECONOMIC DEVELOPMENT MANAGER CMV DNA QN, PCR Routine Gen Lab 12/27/2017 11:35 AM ECONOMIC DEVELOPMENT MANAGER URIC ACID Routine Gen Lab 12/27/2017 11:35 AM ECONOMIC DEVELOPMENT MANAGER LACTATE DEHYDROGENASE Routine Gen Lab 12/27/2017 11:35 AM ECONOMIC DEVELOPMENT MANAGER COMPREHENSIVE METABOLIC PANEL Routine Gen Lab 12/27/2017 11:35 AM ECONOMIC DEVELOPMENT MANAGER CORTISOL 60 MIN After X-Ray 12/18/2017 3:00 PM ECONOMIC DEVELOPMENT MANAGER CORTISOL 30 MIN After X-Ray 12/18/2017 2:12 PM ECONOMIC DEVELOPMENT MANAGER BLOOD CULTURE Routine Gen Lab 12/18/2017 1:20 PM ECONOMIC DEVELOPMENT MANAGER CORTISOL BASELINE After X-Ray 12/18/2017 1:1 2 PM ECONOMIC DEVELOPMENT MANAGER BLOOD CULTURE Routine Gen Lab 12/18/2017 1:11 PM ECONOMIC DEVELOPMENT MANAGER CBC WITH AUTO DIFFERENTIAL Routine Gen Lab 12/18/2017 9:37 AM ECONOMIC DEVELOPMENT MANAGER LACTATE DEHYDROGENASE Routine Gen Lab 12/18/2017 9:35 AM ECONOMIC DEVELOPMENT MANAGER COMPREHENSIVE METABOLIC PANEL Routine Gen Lab 12/18/2017 9:35 AM ECONOMIC DEVELOPMENT MANAGER DISCHARGE LABORATORY CUMULATIVE REPORT 11/26/2017 12:00 AM ECONOMIC DEVELOPMENT MANAGER documented in this encounter Results * (ABNORMAL) CBC with auto differential (02/24/2018 10:39 AM CDT) WBC 13.3(H) 3.8 - 9.8 K/cumm [facility] RBC 3.96(L) 4.50 - 5.70 M/cumm [facility] Hgb 14.8 13.8 - 17.2 g/dL [facility] Hct 43.3 40.7 - 50.3 % [facility] Mean Cellular Volume - CAM 109.4(H) 80.0 - 97.6 fL [facility] Mean Cellular Hemoglobin - CAM 37.3(H) 26.7 - 33.7 pg [facility] Comment:Result consistent wi th previously reported values. Mean Cellular Hemoglobin Concentration - CAM 34.1 32.7 - 35.5 g/dL [facility] Rdw 15.7(H) 11.8 - 14.6 % [facility] Plt 245 140 - 440 K/cumm [facility] Mean Platelet Volume - CAM 7.6 6.8 - 10.4 fL [facility] Neutrophil pct 87.2(H) 38.7 - 74.5 % [facility] Lymphocyte pct 8.9(L) 20.0 - 54.3 % [facility] Monos 3.5(L) 4.3 - 13.5 % [facility] Eosinophil pct 0.1 0.0 - 6.0 % [facility] Basophil pct 0.3 0.0 - 3.0 % [facility] Neutrophil abs 11.6(H) 1.8 - 6.6 K/cumm [facility] Lymphocyte abs 1.2 1.2 - 3.3 K/cumm [facility] Monocyte abs 0.5 0.2 - 1.2 K/cumm [facility] Eosinophils, abs 0.0 0.0 - 0.5 K/cumm [facility] Basophil abs 0.0 0.0 - 0.2 K/cumm [facility] NRBC 0.1 0.0 - 0.2 % [facility] NRBC abs 0.01 0.00 - 0.01 K/cumm [facility] Blood specimen (specimen) 02/24/2018 10:39 AM CDT 02/24/2018 10:43 AM CDT Narrative [facility] - 02/24/2018 10:47 AM CDT us Josué Del Valle MD PhD LAB BLOOD ORDERABLES Fin al Result [facility] Department [place] [address] * Testosterone (02/24/2018 10:35 AM CDT) Testosterone 461 241 - 827 ng/dL [facility] Comment: Interpretive Data Male: ??Age 19-71 yrs: ?? 241 - 827 ng/dL Female: ??Age 15-75 yrs: ?? 14 - 76 ng/dL Current interpretive data was last revised on 2013. Blood specimen (specimen) 02/24/2018 10:35 AM CDT 02/24/2018 10:57 AM CDT Narrative [facility] - 02/24/2018 12:43 PM CDT Josué Del Valle MD PhD LAB BLOOD ORDERABLES Fin al Result Performing Organization Address City/[facility] Co de Phone Number [facility] [place] [address] * (ABNORMAL) Vitamin D 25 hydroxy (02/24/2018 10:35 AM CDT) Pathologist [facility] Vitamin D 25-OH 11(L) 30 - 80 ng/mL [facility] Blood specimen (specimen) 02/24/2018 10:35 AM CDT 02/24/2018 10:57 AM CDT Narrative [facility] - 02/24/2018 12:01 PM CDT Josué Del Valle MD PhD LAB BLOOD ORDERABLES Fin al Result Performing Organization Address City/[facility] Co de Phone Number [facility] Department [place] [address] * TSH reflex to free T4 (02/24/2018 10:35 AM CDT) Pathologist [facility] TSH 0.62 0.30 - 4.20 mcIUnit/mL [facility] Comment: Interpretive Data Hyperthyroid: ??<0.1 mcIUnit/mL Hypothyroid: ??>12.0 mcIUnit/mL Current interpretive data was last revised on 01. Blood specimen (specimen) 02/24/2018 10:35 AM CDT 02/24/2018 10:57 AM CDT Narrative [facility] - 02/24/2018 11:43 AM CDT us Josué Del Valle MD PhD LAB BLOOD ORDERABLES Fin al Result [facility] [place] [address] * Lipid panel (02/24/2018 10:35 AM CDT) Cholesterol 160 30 - 200 mg/dL [facility] Comment: Interpretive Data Desirable: ?<200 mg/dL Borderline high: ??200-239 mg/dL High: ? > or = 240 mg/dL Literature Reference: National Cholesterol Education Program (NCEP) Expert Panel on Detection, Evaluation, and Treatment of High Blood Cholesterol in Adults (Adult Treatment Panel III). ??Circulation 2004; 110:227. Current interpretive data was last revised on 2015. Triglycerides 125 0 - 150 mg/dL [facility] Comment: Interpretive Data Desirable: ? < 150 mg/dL Borderline High: ? 150 - 199 mg/dL High: ?200 - 499 mg/dL Very High: ? > or = 499 mg/dL Literature Reference: See Cholesterol Current interpretive data was last revised on 2015. HDL 69 >=40 mg/dL [facility] Comment: Interpretive Data Less than 40 mg/dL - low; A major risk factor for heart disease. Greater than or equal to 60 mg/dL - High; ??considered protective of heart disease. Literature Reference: See Cholesterol Current interpretive data was last revised on 2015. LDL, calculated 66 10 - 129 mg/dL [facility] Comment: Interpretive Data Optimal: ? < 100 mg/dL Near Optimal: ?100 - 129 mg/dL Borderline High: ?? 130 - 159 mg/dL High: ?160 - 189 mg/dL Very high: ? > or = 190 mg/dL Literature Reference: See Cholesterol Current interpretive data was last revised on 2015. Non-HDL Cholesterol 91 mg/dL [facility] Comment: Interpretive Data When triglycerides are >200 mg/dL, non-HDL C is a secondary target of therapy, with a goal 30 mg/dL higher than the identified LDL-C goal. Reference: ??See Cholesterol Reference. Current interpretive data was last revised 2015. Blood specimen (specimen) 02/24/2018 10:35 AM CDT 02/24/2018 10:57 AM CDT Narrative [facility] - 02/24/2018 11:36 AM CDT us Josué Del Valle MD PhD LAB BLOOD ORDERABLES Fin al Result [facility] Department [place] [address] * (ABNORMAL) Comprehensive metabolic panel (02/24/2018 10:35 AM CDT) Sodium 139 135 - 145 mmol/L [facility] Potassium, pl 3.8 3.3 - 4.9 mmol/L [facility] CO2 32 22 - 32 mmol/L [facility] BUN 11 8 - 25 mg/dL [facility] Glucose 295(H) 70 - 199 mg/dL [facility] Comment: Interpretive Data Fasting glucose >/= [...] Current interpretive data was last revised 2017. Creatinine 0.71(L) 0.80 - 1.30 mg/dL [facility] Calcium 9.3 8.5 - 10.3 mg/dL [facility] Chloride 100 97 - 110 mmol/L [facility] Albumin 3.9 3.5 - 5.0 g/dL [facility] AST 43 10 - 50 Units/L [facility] ALT 70(H) 7 - 55 Units/L [facility] Alk phos 148(H) 40 - 130 Units/L [facility] Bilirubin, total 0.4 0.1 - 1.2 mg/dL [facility] Protein, pl 7.1 6.5 - 8.5 g/dL [facility] Anion gap 6 2 - 15 mmol/L [facility] Blood specimen (specimen) 02/24/2018 10:35 AM CDT 02/24/2018 10:57 AM CDT Narrative [facility] - 02/24/2018 11:36 AM CDT us Josué Del Valle MD PhD LAB BLOOD ORDERABLES Fin al Result Performing Organization Address City/[facility] Co de Phone Number [facility] [email or web address] [address] * (ABNORMAL) Lactate dehydrogenase (LD) (02/24/2018 10:35 AM CDT) Lactate dehydrogenase (LDH) 270(H) 100 - 250 Units/L [facility] Blood specimen (specimen) 02/24/2018 10:35 AM CDT 02/24/2018 10:57 AM CDT Narrative [facility] - 02/24/2018 11:36 AM CDT Josué Del Valle MD PhD LAB BLOOD ORDERABLES Fin al Result [facility] [email or web address] [address] * (ABNORMAL) Hemoglobin A1c (02/24/2018 10:35 AM CDT) [facility] Hgb A1C 6.9(H) 4.0 - 5.6 % [facility] Estimated Average Glucose 151 mg/dL [facility] Comment: The ADA recommends reporting an estimated Average Glucose (eAG) with all Hemoglobin A1c results using the equation derived from a study of 507 normal and diabetic adults. ??Minority populations were underrepresented and children were not included. ?? (Diabetes Care 31:9794-3924, 2007). ??The eAG is not equivalent to a fasting glucose. Blood specimen (specimen) 02/24/2018 10:35 AM CDT 02/24/2018 10:57 AM CDT Narrative [facility] - 02/24/2018 11:25 AM CDT us Eneida Gibson MD LAB BLOOD ORDERABLES Final Resul t [facility] Department [place] [address] * (ABNORMAL) CBC with auto differential (12/27/2017 11:35 AM ECONOMIC DEVELOPMENT MANAGER) [facility] WBC 13.6(H) 3.8 - 9.8 K/cumm [facility] RBC 3.59(L) 4.50 - 5.70 M/cumm [facility] Hgb 12.5(L) 13.8 - 17.2 g/dL [facility] Hct 37.7(L) 40.7 - 50.3 % [facility] Mean Cellular Volume - CAM 105.0(H) 80.0 - 97.6 fL [facility] Mean Cellular Hemoglobin - CAM 34.7(H) 26.7 - 33.7 pg [facility] Mean Cellular Hemoglobin Concentration - CAM 33.0 32.7 - 35.5 g/dL [facility] Rdw 18.2(H) 11.8 - 14.6 % [facility] Plt 270 140 - 440 K/cumm [facility] Mean Platelet Volume - CAM 7.2 6.8 - 10.4 fL [facility] Neutrophil pct 86.3(H) 38.7 - 74.5 % [facility] Lymphocyte pct 11.1(L) 20.0 - 54.3 % [facility] Monos 2.2(L) 4.3 - 13.5 % [facility] Eosinophil pct 0.1 0.0 - 6.0 % [facility] Basophil pct 0.3 0.0 - 3.0 % [facility] Neutrophil abs 11.7(H) 1.8 - 6.6 K/cumm [facility] Lymphocyte abs 1.5 1.2 - 3.3 K/cumm [facility] Monocyte abs 0.3 0.2 - 1.2 K/cumm [facility] Eosinophils, abs 0.0 0.0 - 0.5 K/cumm [facility] Basophil abs 0.0 0.0 - 0.2 K/cumm [facility] NRBC 5.7(H) 0.0 - 0.2 % [facility] NRBC abs 0.77(H) 0.00 - 0.01 K/cumm [facility] Blood specimen (specimen) 12/27/2017 11:35 AM ECONOMIC DEVELOPMENT MANAGER 12/27/2017 11:38 AM ECONOMIC DEVELOPMENT MANAGER Narrative [facility] - 12/27/2017 11:46 AM ECONOMIC DEVELOPMENT MANAGER Josué Del Valle MD PhD LAB BLOOD ORDERABLES Fin al Result [facility] Department [place] [address] * CMV DNA QN, PCR (12/27/2017 11:35 AM ECONOMIC DEVELOPMENT MANAGER) [facility] CMV DNA Not Detected [facility] Comment: Interpretive Data: The quantifiable range of this assay is 137 IUnits/mL to 9,100,000 IUnits/mL (2.14 log IUnits/mL to 6.96 log IUnits/mL). Testing was performed by the [employer]/MICHEL TaqMan CMV Test ([employer] Testing performed at [facility] Current interpretive data was last revised on 17. Blood specimen (specimen) 12/27/2017 11:35 AM ECONOMIC DEVELOPMENT MANAGER 12/27/2017 1:31 PM ECONOMIC DEVELOPMENT MANAGER Narrative [facility] - 12/27/2017 6:49 PM ECONOMIC DEVELOPMENT MANAGER Josué Del Valle MD PhD LAB MICROBIOLOGY - GENER AL ORDERABLES Final Result [facility] Department [place] [address] * (ABNORMAL) Comprehensive metabolic panel (12/27/2017 11:35 AM ECONOMIC DEVELOPMENT MANAGER) Sodium 144 135 - 145 mmol/L [facility] Potassium, pl 2.6(L) 3.3 - 4.9 mmol/L [facility] CO2 36(H) 22 - 32 mmol/L [facility] BUN 7(L) 8 - 25 mg/dL [facility] Glucose 184 70 - 199 mg/dL [facility] Comment: Interpretive Data Fasting glucose >/= [...] Current interpretive data was last revised 2017. Creatinine 0.72(L) 0.80 - 1.30 mg/dL [facility] Calcium 8.1(L) 8.5 - 10.3 mg/dL [facility] Chloride 102 97 - 110 mmol/L [facility] Albumin 3.3(L) 3.5 - 5.0 g/dL [facility] AST 27 10 - 50 Units/L [facility] ALT 23 7 - 55 Units/L [facility] Alk phos 230(H) 40 - 130 Units/L [facility] Bilirubin, total 0.4 0.1 - 1.2 mg/dL [facility] Protein, pl 6.9 6.5 - 8.5 g/dL [facility] Anion gap 6 2 - 15 mmol/L [facility] Blood specimen (specimen) 12/27/2017 11:35 AM ECONOMIC DEVELOPMENT MANAGER 12/27/2017 11:48 AM ECONOMIC DEVELOPMENT MANAGER Narrative [facility] - 12/27/2017 12:21 PM ECONOMIC DEVELOPMENT MANAGER Josué Del Valle MD PhD LAB BLOOD ORDERABLES Fin al Result Performing Organization Address City/[facility] Co de Phone Number [facility] [email or web address] [address] * Uric acid (12/27/2017 11:35 AM ECONOMIC DEVELOPMENT MANAGER) Uric acid 4.2 3.0 - 8.0 mg/dL [facility] Blood specimen (specimen) 12/27/2017 11:35 AM ECONOMIC DEVELOPMENT MANAGER 12/27/2017 11:48 AM ECONOMIC DEVELOPMENT MANAGER Narrative [facility] - 12/27/2017 12:21 PM ECONOMIC DEVELOPMENT MANAGER Josué Del Valle MD PhD LAB BLOOD ORDERABLES Fin al Result Performing Organization Address [facility] de Phone Number [facility] Department [email or web address] [address] * Lactate dehydrogenase (LD) (12/27/2017 11:35 AM ECONOMIC DEVELOPMENT MANAGER) Lactate dehydrogenase (LDH) 225 100 - 250 Units/L [facility] Blood specimen (specimen) 12/27/2017 11:35 AM ECONOMIC DEVELOPMENT MANAGER 12/27/2017 11:48 AM ECONOMIC DEVELOPMENT MANAGER Narrative [facility] - 12/27/2017 12:21 PM ECONOMIC DEVELOPMENT MANAGER Josué Del Valle MD PhD LAB BLOOD ORDERABLES Fin al Result Performing Organization Address City/[facility] [place] [address] * Cortisol 60 min (12/18/2017 3:00 PM ECONOMIC DEVELOPMENT MANAGER) Cortisol, 60 min 20.8 mcg/dL [facility] Comment: Interpretive Data Maximal plasma cortisol ??>18 - 20 mcg/dL (micrograms/deciliters). ??Some criteria also require an increment >7 mcg/dL. ??Lack of normal response can be seen in both primary and secondary adrenal failure. ??Some patients with secondary adrenal failure have a normal response to cortrosyn. ??If pituitary disease is known or strongly suspected (e.g. after pituitary surgery), the cortrosyn test alone should not be relied on to exclude adrenal failure. Current interpretive data was last revised 2014 Blood specimen (specimen) 12/18/2017 3:00 PM ECONOMIC DEVELOPMENT MANAGER 12/18/2017 3:24 PM ECONOMIC DEVELOPMENT MANAGER Narrative [facility] - 12/18/2017 4:56 PM ECONOMIC DEVELOPMENT MANAGER us Eneida Gibson MD LAB BLOOD ORDERABLES Final Resul t [facility] [place] [address] * Cortisol 30 min (12/18/2017 2:12 PM ECONOMIC DEVELOPMENT MANAGER) Cortisol, 30 min 16.5 mcg/dL [facility] Comment: Interpretive Data Maximal plasma cortisol ??>18 - 20 mcg/dL (micrograms/deciliters). ??Some criteria also require an increment >7 mcg/dL. ??Lack of normal response can be seen in both primary and secondary adrenal failure. ??Some patients with secondary adrenal failure have a normal response to cortrosyn. ??If pituitary disease is known or strongly suspected (e.g. after pituitary surgery), the cortrosyn test alone should not be relied on to exclude adrenal failure. Current interpretive data was last revised 2014. Blood specimen (specimen) 12/18/2017 2:12 PM ECONOMIC DEVELOPMENT MANAGER 12/18/2017 3:24 PM ECONOMIC DEVELOPMENT MANAGER Narrative [facility] - 12/18/2017 4:56 PM ECONOMIC DEVELOPMENT MANAGER Eneida Gibson MD LAB BLOOD ORDERABLES Final Resul t Performing Organization Address [facility] Co de Phone Number [facility] [place] [address] * Blood culture (12/18/2017 1:20 PM ECONOMIC DEVELOPMENT MANAGER) Report Final Report: No growth [facility] Blood specimen (specimen) 12/18/2017 1:20 PM ECONOMIC DEVELOPMENT MANAGER 12/18/2017 5:08 PM ECONOMIC DEVELOPMENT MANAGER Narrative [facility] - 12/19/2017 7:01 AM ECONOMIC DEVELOPMENT MANAGER Blood cultures are incubated for five days on a continuously monitored blood culture system. ??The first report of a negative culture is issued within 24 hours of receipt of the specimen in the laboratory. ??Positive culture results are reported as soon as they are detected. ??For blood cultures with gram-positive cocci, a rapid molecular test for organism identification may be performed using the [employer] Gram Positive Blood Culture Assay. ??The Nanosphere assay detects microbial DNA in positive blood culture broth via hybridization of target DNA to capture oligonucleotides on a microarray. ??This assay has been cleared by the [place] Food and Drug Administration and its performance characteristics have been verified by the [facility]. Current Interpretive Data was last revised on 2014. Eneida Gibson MD LAB MICROBIOLOGY - GENERAL ORDER SUBHA Final Result Performing Organization Address [facility] Co de Phone Number [facility] [place] [place] [address] * Cortisol baseline (12/18/2017 1:12 PM ECONOMIC DEVELOPMENT MANAGER) Cortisol, base 12.9 mcg/dL [facility] Blood specimen (specimen) 12/18/2017 1:12 PM ECONOMIC DEVELOPMENT MANAGER 12/18/2017 3:24 PM ECONOMIC DEVELOPMENT MANAGER Narrative [facility] - 12/18/2017 4:58 PM ECONOMIC DEVELOPMENT MANAGER Eneida Gibson MD LAB BLOOD ORDERABLES Final Resul t Performing Organization Address [facility] [facility] [place] [address] * Blood culture (12/18/2017 1:11 PM ECONOMIC DEVELOPMENT MANAGER) Report Final Report: No growth [facility] Blood specimen (specimen) 12/18/2017 1:11 PM ECONOMIC DEVELOPMENT MANAGER 12/18/2017 5:07 PM ECONOMIC DEVELOPMENT MANAGER Narrative [facility] - 12/19/2017 7:01 AM ECONOMIC DEVELOPMENT MANAGER Blood cultures are incubated for five days on a continuously monitored blood culture system. ??The first report of a negative culture is issued within 24 hours of receipt of the specimen in the laboratory. ??Positive culture results are reported as soon as they are detected. ??For blood cultures with gram-positive cocci, a rapid molecular test for organism identification may be performed using the [employer] Gram Positive Blood Culture Assay. ??The Nanosphere assay detects microbial DNA in positive blood culture broth via hybridization of target DNA to capture oligonucleotides on a microarray. ??This assay has been cleared by the [place] Food and Drug Administration and its performance characteristics have been verified by the [facility]. Current Interpretive Data was last revised on 2014. Eneida Gibson MD LAB MICROBIOLOGY - GENERAL ORDER SUBHA Final Result Performing Organization Address [facility] Co de Phone Number ZULEMA [facility] [place] [address] * (ABNORMAL) CBC with auto differential (12/18/2017 9:37 AM ECONOMIC DEVELOPMENT MANAGER) WBC 11.1(H) 3.8 - 9.8 K/cumm [facility] RBC 3.49(L) 4.50 - 5.70 M/cumm [facility] Hgb 12.0(L) 13.8 - 17.2 g/dL [facility] Hct 35.9(L) 40.7 - 50.3 % [facility] Mean Cellular Volume - CAM 103.1(H) 80.0 - 97.6 fL [facility] Mean Cellular Hemoglobin - CAM 34.3(H) 26.7 - 33.7 pg [facility] Mean Cellular Hemoglobin Concentration - CAM 33.3 32.7 - 35.5 g/dL [facility] Rdw 15.3(H) 11.8 - 14.6 % [facility] Plt 391 140 - 440 K/cumm [facility] Mean Platelet Volume - CAM 7.7 6.8 - 10.4 fL [facility] Neutrophil pct 39.5 38.7 - 74.5 % [facility] Lymphocyte pct 45.8 20.0 - 54.3 % [facility] Monos 10.0 4.3 - 13.5 % [facility] Eosinophil pct 3.3 0.0 - 6.0 % [facility] Basophil pct 1.4 0.0 - 3.0 % [facility] Neutrophil abs 4.4 1.8 - 6.6 K/cumm [facility] Lymphocyte abs 5.1(H) 1.2 - 3.3 K/cumm [facility] Monocyte abs 1.1 0.2 - 1.2 K/cumm [facility] Eosinophils, abs 0.4 0.0 - 0.5 K/cumm [facility] Basophil abs 0.2 0.0 - 0.2 K/cumm [facility] NRBC 0.4(H) 0.0 - 0.2 % [facility] NRBC abs 0.05(H) 0.00 - 0.01 K/cumm [facility] Blood specimen (specimen) 12/18/2017 9:37 AM ECONOMIC DEVELOPMENT MANAGER 12/18/2017 9:40 AM ECONOMIC DEVELOPMENT MANAGER Narrative [facility] - 12/18/2017 9:45 AM ECONOMIC DEVELOPMENT MANAGER us Eneida Gibson MD LAB BLOOD ORDERABLES Final Resul t [facility] [place] [address] * (ABNORMAL) Comprehensive metabolic panel (12/18/2017 9:35 AM ECONOMIC DEVELOPMENT MANAGER) [facility] Sodium 136 135 - 145 mmol/L [facility] Potassium, pl 3.9 3.3 - 4.9 mmol/L [facility] CO2 26 22 - 32 mmol/L [facility] BUN 12 8 - 25 mg/dL [facility] Glucose 200(H) 70 - 199 mg/dL [facility] Comment: Interpretive Data Fasting glucose >/= [...] Current interpretive data was last revised 2017. Creatinine 0.86 0.80 - 1.30 mg/dL [facility] Calcium 9.0 8.5 - 10.3 mg/dL [facility] Chloride 98 97 - 110 mmol/L [facility] Albumin 3.2(L) 3.5 - 5.0 g/dL [facility] AST 24 10 - 50 Units/L [facility] ALT 25 7 - 55 Units/L [facility] Alk phos 416(H) 40 - 130 Units/L [facility] Bilirubin, total 0.3 0.1 - 1.2 mg/dL [facility] Protein, pl 8.1 6.5 - 8.5 g/dL [facility] Anion gap 12 2 - 15 mmol/L [facility] Blood specimen (specimen) 12/18/2017 9:35 AM ECONOMIC DEVELOPMENT MANAGER 12/18/2017 10:23 AM ECONOMIC DEVELOPMENT MANAGER Narrative [facility] - 12/18/2017 11:01 AM ECONOMIC DEVELOPMENT MANAGER us Eneida Gibson MD LAB BLOOD ORDERABLES Final Resul t [facility] [place] [address] * Lactate dehydrogenase (LD) (12/18/2017 9:35 AM ECONOMIC DEVELOPMENT MANAGER) Lactate dehydrogenase (LDH) 195 100 - 250 Units/L [facility] Blood specimen (specimen) 12/18/2017 9:35 AM ECONOMIC DEVELOPMENT MANAGER 12/18/2017 10:23 AM ECONOMIC DEVELOPMENT MANAGER Narrative [facility] - 12/18/2017 11:01 AM ECONOMIC DEVELOPMENT MANAGER us Eneida Gibson MD LAB BLOOD ORDERABLES Final Resul t [facility] [place] [address] * DISCHARGE LABORATORY CUMULATIVE REPORT (11/26/2017 12:00 AM ECONOMIC DEVELOPMENT MANAGER) Narrative 11/26/2017 12:00 AM ECONOMIC DEVELOPMENT MANAGER Ordered by an unspecified provider. us Historical Provider LAB BLOOD ORDERABLES Pilar l Result documented in this encounter Visit Diagnoses Not on filedocumented in this encounter 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 Care Teams Senior Paralegal Relationship Specialty Start Date End Date Kirt Lindsay DO PCP - General 05/02/17 11/22/20 documented as of this encounter
--- OUTSIDE RECORDS SUMMARY | 2024-11-22 11:09 | XMS_ITS | Encounter Summary ---
Author Organization [facility] Healthcare Address [address] [place] [address] Care Team Providers Care Tray Filler Name Role Phone Kirt Lindsay DO Primary Care Provider [phone] Encounter Details Date Type Department Care Team (Latest Contact Info) Description 12/27/2017 10:50 AM SENIOR PRODUCTION MANAGER - 12/27/2017 11:59 PM [facility] Hospital Encounter [facility] [phone] Christopher Del Valle MD PhD [address] [employer] [employer], [address] [place] [address] Discharge Disposition: Discharge to home or self care Social History Tobacco Use Types Packs/Day Years Used Date Smoking Tobacco: Every Day Sex and Gender Information Value Date Recorded Sex Assigned at Not on file Legal Sex Male 10:48 AM SENIOR PRODUCTION MANAGER Gender Identity Not on file Sexual [...] hyperglycemia, with long-term current use of insulin ([facility]) Take 1 tablet by mouth daily. 12/14/2016 [...] kitIndications:A ML (acute myeloid leukemia) in remission (HCC) USE DIRECTED AT SCHOOL AND HOME 12/14/2013 11/28/2019 insulin glargine (LANTUS U-100 INSULIN) 100 unit/mL injectionIndicat ions:AML (acute myeloid leukemia) in remission (HCC),Type 2 diabetes mellitus with hyperglycemia, with long-term current use of insulin ([facility]) INJECT 15 UNIT BEDTIME 12/18/2017 06/06/2018 insulin lispro (HumaLOG U-100 Insulin) 100 unit/mL injectionIndicat ions:AML (acute myeloid leukemia) in remission (HCC),Type 2 diabetes mellitus with hyperglycemia, with long-term current use of insulin ([facility]) 1-3 units subQ 3 times a day [...] Associated Diagnosis Comments CT CHEST WO CONTRAST Routine 12/27/2017 5:18 PM SENIOR PRODUCTION MANAGER documented in this encounter Results * CT Chest WO Contrast (12/27/2017 5:18 PM SENIOR PRODUCTION MANAGER) Anatomical Region Laterality Modality Body N/A Computed Tomogra phy 12/27/2017 5:18 PM SENIOR PRODUCTION MANAGER Narrative 12/27/2017 9:06 PM SENIOR PRODUCTION MANAGER Toño LEMUS M.D. FINAL REPORT The radiology attending physician has personally reviewed this study, and has reviewed and/or edited this written report and agrees with it. ACC# ??Date Time ??Exam [id number] Dec 27, 2017 11:18:[address] Chest without contrast EXAMINATION: ??CT of the chest without intravenous contrast HISTORY:Pneumonia, hbjuc-pzsgkt-hpiu disease, AML TECHNIQUE: Transaxial computed tomographic images of the chest were obtained without intravenous contrast according to standard protocol. FINDINGS: Prior CT dated 12/09/2017. No supraclavicular, axillary, or mediastinal lymphadenopathy. ??The heart size is normal. ??There is a small pericardial effusion, unchanged. ??There is unchanged three-vessel coronary atherosclerosis. There is moderate to severe upper lobe predominant centrilobular emphysema. ??There is unchanged right upper lobe scarring. ??No pneumothorax or pulmonary edema. ??There is a small right pleural effusion, improved. ??There has been interval improvement in right lower lobe consolidation. ??There is a 3 mm subpleural nodule in the left lower lobe seen at table position -239.5. ??There are tracheal secretions with right middle lobe collapse. Included views of the upper abdomen demonstrate cholelithiasis without cholecystitis. ??There are unchanged multiple prominent periportal and gastrohepatic lymph nodes. ??There is also an unchanged peripancreatic fluid collection adjacent to the pancreatic tail. ??No other abnormalities. Bone windows demonstrate no osseous lytic or blastic lesions. IMPRESSION: ??1. Interval improvement in right lower lobe consolidation. ?? Small right pleural effusion, improved. 2. Moderate to severe upper lobe predominant centrilobular emphysema with unchanged right upper lobe scarring. Electronically signed by: Joie Redding M.D. Requested By: CHRISTOPHER DEL VALLE MD, PHD Dictated By: ?? OLGA FIORE M.D. ??on Dec ??2017 11:47A This document has been electronically signed by: JOIE REDDING M.D. on Dec 27 2017 ??3:04P [id number] LEMUS M.D. FINAL REPORT The radiology attending physician has personally reviewed this study, and has reviewed and/or edited this written report and agrees with it. Attending: ??ADEOLA, ??CHRISTOPHER Requesting: ??ADEOLA, ??CHRISTOPHER Requesting Fax: ?? Attending Fax: ?? Attending ID: ??[id number] Requesting ID: ??[id number] Report To 1 ID: ??[id number] ? Report To 1 Name: ??, ?? Report To 1 FAX: ?? NextGen Order #: ?? Procedure Note Miscellaneous, Not In File - 12/27/2017 Toño LEMUS M.D. FINAL REPORT The radiology attending physician has personally reviewed this study, and has reviewed and/or edited this written report and agrees with it. [facility]# Date Time Exam [id number] Dec 27, 2017 11:18:[id number] Chest without contrast EXAMINATION: CT of the chest without intravenous contrast HISTORY:Pneumonia, rrtwc-pakeym-rfdz disease, AML TECHNIQUE: Transaxial computed tomographic images of the chest were obtained without intravenous contrast according to standard protocol. FINDINGS: Prior CT dated 12/09/2017. No supraclavicular, axillary, or mediastinal lymphadenopathy. The heart size is normal. There is a small pericardial effusion, unchanged. There is unchanged three-vessel coronary atherosclerosis. There is moderate to severe upper lobe predominant centrilobular emphysema. There is unchanged right upper lobe scarring. No pneumothorax or pulmonary edema. There is a small right pleural effusion, improved. There has been interval improvement in right lower lobe consolidation. There is a 3 mm subpleural nodule in the left lower lobe seen at table position -239.5. There are tracheal secretions with right middle lobe collapse. Included views of the upper abdomen demonstrate cholelithiasis without cholecystitis. There are unchanged multiple prominent periportal and gastrohepatic lymph nodes. There is also an unchanged peripancreatic fluid collection adjacent to the pancreatic tail. No other abnormalities. Bone windows demonstrate no osseous lytic or blastic lesions. IMPRESSION: 1. Interval improvement in right lower lobe consolidation. Small right pleural effusion, improved. 2. Moderate to severe upper lobe predominant centrilobular emphysema with unchanged right upper lobe scarring. Electronically signed by: Joie Redding M.D. Requested By: CHRISTOPHER DEL VALLE MD, PHD Dictated By: OLGA FIORE M.D. on Dec 27 2017 11:47A This document has been electronically signed by: JOIE REDDING M.D. on Dec 27 2017 3:04P [id number] LEMUS M.D. FINAL REPORT The radiology attending physician has personally reviewed this study, and has reviewed and/or edited this written report and agrees with it. Attending: CHRISTOPHER DEL VALLE Requesting: CHRISTOPHER DEL VALLE Requesting Fax: Attending Fax: Attending ID: [id number] Requesting ID: [id number] Report To 1 ID: [id number] Report To 1 Name: , Report To 1 FAX: NextGen Order #: Christopher Del Valle MD PhD IMG CT PROCEDURES Final Result documented in this encounter Visit Diagnoses Not on filedocumented in this encounter 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 Care Teams Tray Filler Relationship Specialty Start Date End Date Kirt Lindsay DO PCP - General 05/02/17 11/22/20 documented as of this encounter
--- OUTSIDE RECORDS SUMMARY | 2024-11-22 11:09 | XMS_ITS | Encounter Summary ---
Author Organization [facility] Address [address] [place] [address] Phone Care Team Providers Care Cut Lace Machine Operator Name Role Phone Kirt Lindsay DO Primary Care Provider [phone]- [phone] Encounter Details Date Type Department Care Team (Late st Contact Info) Description 06/06/2018 10:00 AM CDT Office Visit [facility] [address] [facility] 7th Floor, [place] [phone] Narcisa Kilgore, ARMEN [address] DIV IM BONE MARROW TRANSPLANT, [address] [place] [address] 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); 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); Nuhag-aydphv-kcfo disease (CMS/HCC); H/O allogeneic bone marrow transplant (CMS/HCC) Social History Tobacco Use Types Packs/Day Years Used Date Smoking Tobacco: Every Day Smokeless Tobacco: Never Sex and Gender Information Value Date Recorded Sex Assigned at Not on file Legal Sex Male 10:48 AM BRINE MIXER OPERATOR Gender Identity Not on file Sexual Orientation Not on file documented as of this encounter Last Filed Vital Signs Vital Sign Reading Time Taken Comments Blood Pressure 125/68 06/06/2018 9:35 AM CDT Pulse 72 06/06/2018 9:35 AM CDT Temperature 36.5 ??C (97.7 ??F) 06/06/2018 9:35 AM CD T Respiratory Rate 18 06/06/2018 9:35 AM CDT Oxygen Saturation 93% 06/06/2018 9:35 AM CDT Inhaled Oxygen Concentration - - Weight 63.7 kg (140 lb 6.4 oz) 06/06/2018 9:35 A M CDT Height - - Body Mass Index 19.88 12/18/2017 11:05 AM BRINE MIXER OPERATOR documented in this encounter Progress Notes * Narcisa Kilgore NP - 06/06/2018 12:00 AM CDT [facility] DEPARTMENT OF MEDICINE - SECTION OF BMT & LEUKEMIA [address] [place], [place] [address]- PHONE: FAX: PATIENT NAME: BRI JONES : 1965 ROSY: 06/06/2018 The patient has a history of AML. 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 TREATMENT HISTORY: 1. Induction with 7+3 and HiDAC consolidation x3. 2. Decitabine maintenance on the CALGB 73383 protocol. 3. Relapsed disease, status post [facility]. 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 TRANSPLANT HISTORY: Status post an allogeneic transplant with busulfan and Cytoxan on the [facility] allogeneic study with hissister, 08/27 match; with day 0 on 11/09/2009. INTERVAL HISTORY: He is doing overall well. He has no complaints of nausea, vomiting, fevers, chills, chest pain, or shortness of breath. MEDICATIONS: Full medication review with the patient. See Allscripts/Plan for complete list of medications. REVIEW OF SYSTEMS: Twelve-point systems reviewed and positive as above in Interval History. All other systems negative. PHYSICAL EXAMINATION: General: He is alert and oriented x3, in no acute distress. Vital Signs: His current weight is 63 kg, blood pressure 125/68, pulse 82, respirations 18, temperature is 36.5, and O2 sat is 93% on room air. HEENT: Pupils are equal, round, and reactive to light and accommodation. Sclerae anicteric. Neck: Supple without lymphadenopathy. Cardiac: S1 and S2. Regular rate without murmur or gallop. Lungs: Clear to auscultation bilaterally. Abdomen: Soft, nontender, and nondistended with positive bowel sounds. No hepatosplenomegaly. Extremities: Lower extremities without edema. Palpable pulses. Skin: Unremarkable. Neurologic: Grossly intact. No neurological deficit. LABORATORY DATA: The patient's white blood cell count is 10, hemoglobin 14, hematocrit 41, platelets are 215. ANC is4. Sodium is 144, potassium 3.1, chloride 107, carbon dioxide 31, BUN 16, creatinine 0.9, glucose 135, calcium 8.9, bilirubin 0.5, albumin 3.8, alkaline phosphatase 88, AST is 38, ALT is 33. LDH is 296. Vitamin D and hemoglobin A1c is pending from today. We are also getting a bone density. IMPRESSION AND PLAN: 1. Patient with history of acute myelocytic leukemia post aloe transplant 3131 days ago with sib allo Bu/Cy standard of care. For graft versus host disease treatment, he is on CellCept 500 two tablets b.i.d. and Prograf 0.5 one every other day. 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 2. High cholesterol. He is on Lipitor 40 mg a day. 3. Diabetes. He is on metformin 1 g b.i.d. He is off his insulin now. His hemoglobin A1c is 6.3 today. 4. Orthostatic hypotension. He is on Florinef 0.1 mg b.i.d. 5. Vitamin D deficiency. He is on vitamin D 50,000 units weekly, for which is a level was checked today, followed by Dr. Elizondo. 6. ID prophylaxis. He is on acyclovir 400 every 8hr. 7. Deep vein thrombosis in 2012 and another deep vein thrombosis in 2018. He is on Xarelto 20 mg a day and is wondering when he could come off. I will discuss with Dr. Lopez if he thinks he needs to stay on for life. He is scheduled to return to see us back in July 28 for re-evaluation. ELECTRONICALLY SIGNED - 06/06/2018 03:27 PM Narcisa Kilgore, RN, BCFNP Nurse Practitioner In collaboration with Josué Lopez M.D. SB/yany documented in this encounter Plan of Treatment Not on file documented as of this encounter Results * (ABNORMAL) Comprehensive metabolic panel (07/28/2018 10:17 AM CDT) Sodium 141 135 - 145 mmol/L [facility] Potassium, pl 3.6 3.3 - 4.9 mmol/L [facility] Chloride 105 97 - 110 mmol/L [facility] CO2 29 22 - 32 mmol/L [facility] Anion gap 7 2 - 15 mmol/L [facility] BUN 8 8 - 25 mg/dL [facility] Creatinine 0.78(L) 0.80 - 1.30 mg/dL [facility] Glucose 217(H) 70 - 199 mg/dL [facility] Comment: Interpretive Data Fasting glucose >/= 126 [...] 2017. Calcium 8.5 8.5 - 10.3 mg/dL [facility] Bilirubin, total 0.3 0.1 - 1.2 mg/dL [facility] Protein, pl 6.2(L) 6.5 - 8.5 g/dL [facility] Albumin 3.2(L) 3.5 - 5.0 g/dL [facility] Alk phos 146(H) 40 - 130 Units/L [facility] ALT 39 7 - 55 Units/L [facility] AST 32 10 - 50 Units/L [facility] Blood specimen (specimen) 07/28/2018 10:17 AM CDT 07/28/2018 10:45 AM CDT Narrative [facility] - 07/28/2018 11:18 AM CDT Narcisa Kilgore GRANITE INSTALLER LAB BLOOD ORDERABLES Pilar l Result Performing Organization Address City/[facility]/ZIP Co de Phone Number [facility] Department [place] [address] * (ABNORMAL) Lactate dehydrogenase (LD) (07/28/2018 10:17 AM CDT) Lactate dehydrogenase (LDH) 324(H) 100 - 250 Units/L [facility] Blood specimen (specimen) 07/28/2018 10:17 AM CDT 07/28/2018 10:45 AM CDT Narrative [facility] - 07/28/2018 11:18 AM CDT Narcisa Kilgore GRANITE INSTALLER LAB BLOOD ORDERABLES Pilar l Result Performing Organization Address City/[facility] Co de Phone Number [facility] Department [place] [address] * (ABNORMAL) CBC with auto differential (07/28/2018 10:15 AM CDT) WBC 8.3 3.8 - 9.8 K/cumm [facility] Comment:Testing performed by : [facility], [address] [place] [phone] Hgb 13.1(L) 13.8 - 17.2 g/dL [facility] Comment:Testing performed by : [facility], [address] [place] [phone] Hct 37.6(L) 40.7 - 50.3 % [facility] Comment:Testing performed by : [facility], [address] [place] [phone] Plt 212 140 - 440 K/cumm [facility] Comment:Testing performed by : [facility], [address] [place], [place] [phone] MPV 7.8 6.8 - 10.4 fL [facility] Comment:Testing performed by : [facility], [address] [place] [address] RBC 3.56(L) 4.50 - 5.70 M/cumm [facility] Comment:Testing performed by : [place] [address] MCV 105.7(H) 80.0 - 97.6 fL [facility] Comment:Testing performed by : [facility], [address] [place] [address] MCH 36.8(H) 26.7 - 33.7 pg [facility] Comment:Testing performed by : [facility], [address] [place] [address] MCHC 34.8 32.7 - 35.5 g/dL [facility] Comment:Testing performed by : [facility], [address] [place] [address] RDW CV 13.4 11.8 - 14.6 % [facility] Comment:Testing performed by : [facility], [address] [place] [address] NRBC abs 0.00 0.00 - 0.01 K/cumm [facility] Comment:Testing performed by : [facility], [address] [place] [address] Blood specimen (specimen) 07/28/2018 10:15 AM CDT 07/28/2018 10:15 AM CDT Narrative [facility] - 07/28/2018 10:24 AM CDT us Narcisa Kilgore NP LAB BLOOD ORDERABLES Pilar armas Result [facility] [place] [address] * (ABNORMAL) Lactate dehydrogenase (LD) (06/06/2018 9:25 AM CDT) Lactate dehydrogenase (LDH) 296(H) 100 - 250 Units/L [facility] Blood specimen (specimen) 06/06/2018 9:25 AM CDT 06/06/2018 9:33 AM CDT Narrative [facility] - 06/06/2018 10:02 AM CDT Narcisa Kilgore GRANITE INSTALLER LAB BLOOD ORDERABLES Pilar pawel Result [facility] Department [place] [address] * (ABNORMAL) CBC with auto differential (06/06/2018 9:24 AM CDT) [facility] WBC 10.0(H) 3.8 - 9.8 K/cumm [facility] Comment:Testing performed by : [address] Hgb 14.2 13.8 - 17.2 g/dL [facility] Comment:Testing performed by : [address] [phone] Hct 41.7 40.7 - 50.3 % [facility] Comment:Testing performed by : [address] Plt 215 140 - 440 K/cumm [facility] Comment:Testing performed by : [address] MPV 7.1 6.8 - 10.4 fL [facility] Comment:Testing performed by : [place] [id number] RBC 3.84(L) 4.50 - 5.70 M/cumm [facility] Comment:Testing performed by : [place] [id number] MCV 108.5(H) 80.0 - 97.6 fL [facility] Comment:Testing performed by : [place] [id number] MCH 37.0(H) 26.7 - 33.7 pg [facility] Comment:Testing performed by : [facility], [address] [place] [phone] MCHC 34.1 32.7 - 35.5 g/dL [facility] Comment:Testing performed by : [facility], [address] [place] [phone] RDW CV 14.9(H) 11.8 - 14.6 % [facility] Comment:Testing performed by : [facility], [address] [place] [phone] NRBC abs 0.02(H) 0.00 - 0.01 K/cumm [facility] Comment:Testing performed by : [facility], [address] [place] [phone] Blood specimen (specimen) 06/06/2018 9:24 AM CDT 06/06/2018 9:26 AM CDT Narrative [facility] - 06/06/2018 9:30 AM CDT Narcisa Kilgore NP LAB BLOOD ORDERABLES Pilar l Result [facility] Department [place] [address] documented in this encounter Visit Diagnoses Diagnosis Acute myeloid leukemia in remission (HCC)- Primary Acute myeloid leukemia in remission AML (acute myeloid leukemia) in remission (HCC) Qlcpg-mfilkz-boco disease (HCC) H/O allogeneic bone marrow transplant (HCC) Osteopenia, unspecified location Acute myeloid leukemia in remission (HCC) Acute myeloid leukemia in remission Acute myeloid leukemia in remission (HCC) 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 (HCC) Shfgg-cyvxwp-ejoc disease (HCC) AML (acute myeloid leukemia) in remission (HCC) documented in this encounter Discontinued Medications Medication Sig Discontinue Reason Start Date End Da te insulin glargine (LANTUS U-100 INSULIN) 100 unit/mL injectionIndications:AML (acute myeloid leukemia) in remission (HCC),Type 2 diabetes mellitus with hyperglycemia, with long-term current use of insulin (HCC) INJECT 15 UNIT BEDTIME 12/18/2017 06/06/2018 insulin lispro (HumaLOG U-100 Insulin) 100 unit/mL injectionIndications:AML (acute myeloid leukemia) in remission (HCC),Type 2 diabetes mellitus with hyperglycemia, with long-term current use of insulin (HCC) 1-3 units subQ 3 times a day sliding scale for greater than 150 (1u for every 25 over 150) 12/18/2017 06/06/2018 pen needle, diabetic (BD ULTRA-FINE MINI PEN NEEDLE) 31 gauge x 3/16 needleIndications:AML (acute myeloid leukemia) in remission (HCC),Type 2 diabetes mellitus with hyperglycemia, with long-term current use of insulin ([facility]) USE DIRECTED. 08/31/2015 06/06/2018 documented as of this encounter Historical Medications * This list may reflect changes made after this encounter. ergocalciferol (VITAMIN D) 50,000 unit capsuleIndication s:Acute myeloid leukemia in remission (HCC),Graft-versu s-host disease (HCC),H/O allogeneic bone marrow transplant (HCC) Take 1 capsule by mouth once a week. 03/14/2018 08/01/2018 added in this encounter Orders Appointment Requests Count Last Ordered Date Fi rst Ordered Date ONCBCN CLINIC APPOINTMENT REQUEST 2 018 06/06/2018 ONCBCN LAB APPOINTMENT 1 07/28/2018 documented in this encounter 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 Care Teams Cut Lace Machine Operator Relationship Specialty Start Date End Date Kirt Lindsay DO PCP - General 05/02/17 11/22/20 documented as of this encounter
--- OUTSIDE RECORDS SUMMARY | 2024-11-22 11:09 | XMS_ITS | Encounter Summary ---
Author Organization [facility] Address [address] [facility] [address] [place] [address] Phone Care Team Providers Care Cupola Hoist Operator Name Role Phone Kirt Lindsay DO Primary Care Provider [phone]- [phone] Josué Del Valle MD PhD Unavailable Halie Khan MD Primary Care Provider [phone] Kirt Lindsay DO Primary Care Provider +- [phone] Tay Charlton MD Unavailable [phone] Halie Khan MD Unavailable [phone] StarksAnt goldman MD Unavailable +- [phone] Dillon Calreed Dorado DO Unavailable [phone] Halie Khan MD Unavailable [phone] Wilfred Kinsey MD Unavailable Encounter Details Date Type Department Care Team (Latest Contact Info) Description 12/30/2017 Orders Only [facility] CONVERSION Scanning, Provider Social History Tobacco Use Types Packs/Day Years Used Date Smoking Tobacco: Every Day Sex and Gender Information Value Date Recorded Sex Assigned at Not on file Legal Sex Male 10:48 AM PERL DEVELOPER Gender Identity Not on file Sexual Orientation Not on file documented as of this encounter Plan of Treatment Not on file documented as of this encounter Procedures Procedure Name Priority Date/Time Associated Diagnosis Comments PULMONARY FUNCTION TEST (PFT) 12/30/2017 1:11 PM PERL DEVELOPER documented in this encounter Results * PULMONARY FUNCTION TEST (PFT) (12/30/2017 1:11 PM PERL DEVELOPER) Anatomical Region Laterality Modality PFT us Provider Scanning PFT ORDERABLES Final Result documented in this encounter [...] out) Comment:06/18/2024 IP Review: case reviewed by nikhil Lizarraga to come off precautions. Lissy Johnson RN +AFB stain 06/17/2024 06/17/2024 06/18/2024 10:45 AM CDT C. 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 07/23/2024 07/24/2024 07/24/2024 4:49 AM CDT documented as of this encounter Care Teams Cupola Hoist Operator Relationship Specialty Start Date End Date Kirt Lindsay DO PCP - General 05/02/17 11/22/20 Halie Khan MD [address] [place] [address] PCP - General Critical Care Med 11/23/20 02/01/21 Kirt Lindsay DO PCP - General Internal Medicine 02/02/21 Josué Del Valle MD PhD Medical Oncologist/Kier Hand Medical Oncology 08/26/19 Tay Charlton MD [address] [place] [address] Consulting Physician Gastroenterology 12/03/21 06/11/23 Halie Khan MD [address] [place] [address] Consulting Physician Pulmonary Disease 12/12/21 3 Ant Starks MD [address] [place] [address] Consulting Physician Transplant Hepatology 01/12/22 Cal Carranza DO [address] [address] Used Car Make Ready Worker Internal Medicine 06/12/23 Halie Khan MD [address] [facility] [address] [place] [address] Floor Runner Critical Care Med 06/12/23 Wilfred Kinsey MD [address] [address] Consulting Physician Gastroenterology 03/02/24 documented as of this encounter
--- OUTSIDE RECORDS SUMMARY | 2024-11-22 11:09 | XMS_ITS | Encounter Summary ---
Author Organization [facility] Address [address] [place] [address] Phone Care Team Providers Care Rework Machine Operator Name Role Phone Kirt Lindsay DO Primary Care Provider [phone] Reason for Referral * Diagnostic Imaging (Routine) - Canceled Specialty Diagnoses / Procedures Referred By Contac t Referred To Contact Diagnoses Osteopenia of multiple sites Procedures Dexa Axial Skeleton Bone Density 1 or 2 Site Eneida Gibson MD Phone: tel: [facility] (All Locations) Referral ID Status Reason Start Date Expiration Date V isits Requested Visits Authorized [id number] Canceled 03/25/2018 11/04/2019 1 1 Encounter Details Date Type Department Care Team (Late st Contact Info) Description 03/25/2018 Orders Only [facility] Oncology [address] [facility] [address] [place] [phone] Eneida Gibson MD [address] [place] [address] Osteopenia of multiple sites (Primary Dx) Social History Tobacco Use Types Packs/Day Years Used Date Smoking Tobacco: Every Day Sex and Gender Information Value Date Recorded Sex Assigned at Not on file 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 ?? Machine Cross-calibration and Precision [...] Barajas, Lancet 341 : 72-75 (1992) 3) Adarsh, Journal Bone and Mineral Research 7(6): 633-8 (1991) 4) Osbaldo, Journal Bone and Mineral Research 8(10):1227-33 (1992) The history and data sections of the bone mineral density scan were prepared by Bela Bauman (R)([facility]) who is accredited by the International Society of Clinical Densitometry. The overall patient assessment and scan interpretation were performed by Justine Banks M.D. who is certified by the International Society of Clinical Densitometry. 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
--- OUTSIDE RECORDS SUMMARY | 2024-11-22 11:09 | XMS_ITS | Encounter Summary ---
Author Organization [facility] Address [address] [place] [address] Phone Care Team Providers Care Talend Etl Developer Name Role Phone Kirt Lindsay DO Primary Care Provider [phone]- [phone] Encounter Details Date Type Department Care Team (Late st Contact Info) Description 05/02/2018 Orders Only [facility] Oncology [address] [facility] Advanced Medicine 7th [place] [address] [place] [address] Eneida Gibson MD [address] [place] [address] Osteopenia, unspecified location (Primary Dx) Social History Tobacco Use Types Packs/Day Years Used Date Smoking Tobacco: Every Day Sex and Gender Information Value Date Recorded Sex Assigned at Not on file 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 - 05/02/2018 4:21 PM CDTAddended by: TRENTON CAGLE V. on: 06/06/2018 09:18 AM Modules accepted: Orders documented in this encounter Plan of Treatment Not on file documented as of this encounter Results * (ABNORMAL) Vitamin D 25 hydroxy (06/06/2018 9:25 AM CDT) Vitamin D 25-OH 25(L) 30 - 80 ng/mL [facility] Blood specimen (specimen) 06/06/2018 9:25 AM CDT 06/06/2018 9:33 AM CDT Narrative [facility] - 06/06/2018 10:24 AM CDT Eneida Gibson MD LAB BLOOD ORDERABLES Final Resul t Performing Organization Address City/[facility] de Phone Number [facility] One [facility] Department [place] [address] * (ABNORMAL) Hemoglobin A1c (06/06/2018 9:25 AM CDT) Pathologist [facility] Hgb A1C 6.3(H) 4.0 - 5.6 % [facility] Estimated Average Glucose 134 mg/dL [facility] Comment: The ADA recommends reporting an estimated Average Glucose (eAG) with all Hemoglobin A1c results using the equation derived from a study of 507 normal and diabetic adults. ??Minority populations were underrepresented and children were not included. ?? (Diabetes Care 31:5184-4965, 2008). ??The eAG is not equivalent to a fasting glucose. Blood specimen (specimen) 06/06/2018 9:25 AM CDT 06/06/2018 9:33 AM CDT Narrative [facility] - 06/06/2018 9:56 AM CDT Eneida Gibson MD LAB BLOOD ORDERABLES Final Resul t [facility] Department [place] [address] * (ABNORMAL) Comprehensive metabolic panel (06/06/2018 9:25 AM CDT) Sodium 144 135 - 145 mmol/L [facility] Potassium, pl 3.1(L) 3.3 - 4.9 mmol/L [facility] Chloride 107 97 - 110 mmol/L [facility] CO2 31 22 - 32 mmol/L [facility] Anion gap 6 2 - 15 mmol/L [facility] BUN 16 8 - 25 mg/dL [facility] Creatinine 0.90 0.80 - 1.30 mg/dL [facility] Glucose 135 70 - 199 mg/dL [facility] [...] 2017. Calcium 8.9 8.5 - 10.3 mg/dL [facility] Bilirubin, total 0.5 0.1 - 1.2 mg/dL [facility] Protein, pl 6.4(L) 6.5 - 8.5 g/dL [facility] Albumin 3.8 3.5 - 5.0 g/dL [facility] Alk phos 88 40 - 130 Units/L [facility] ALT 33 7 - 55 Units/L [facility] AST 38 10 - 50 Units/L [facility] Blood specimen (specimen) 06/06/2018 9:25 AM CDT 06/06/2018 9:33 AM CDT Narrative [facility] - 06/06/2018 10:02 AM CDT us Eneida Gibson MD LAB BLOOD ORDERABLES Final Resul t [facility] One [facility] Department of Laboratories [place], [place] [id number] documented in this encounter Visit Diagnoses Diagnosis Osteopenia, unspecified location- Primary Osteopenia, unspecified location Acute myeloid leukemia in remission (HCC) Acute myeloid leukemia in remission documented in this encounter 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 Care Teams Talend Etl Developer Relationship Specialty Start Date End Date Kirt Lindsay DO PCP - General 05/02/17 11/22/20 documented as of this encounter
--- OUTSIDE RECORDS SUMMARY | 2024-11-22 11:09 | XMS_ITS | Encounter Summary ---
Author Organization [facility] Address [address] [place] [address] Phone Care Team Providers Care Seed Analyst Name Role Phone Kirt Lindsay DO Primary Care Provider [phone]- [phone] Encounter Details Date Type Department Care Team (Late st Contact Info) Description 04/17/2018 Orders Only [facility] Bone Marrow Transplant [address] [facility] Medicine 7th Floor, [place] [address] Justine Jones RN 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) Social History Tobacco Use Types Packs/Day Years Used Date Smoking Tobacco: Every Day Sex and Gender Information Value Date Recorded Sex Assigned at Not on file 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 Gender Identity Not on file Sexual Orientation Not on file documented as of this encounter Plan of Treatment Not on file documented as of this encounter Visit Diagnoses Diagnosis Acute myeloid leukemia in remission (HCC)- Primary Acute myeloid leukemia in remission documented in this encounter Orders Appointment Requests Count Last Ordered Date Fi rst Ordered Date ONCBCN CLINIC APPOINTMENT REQUEST 1 018 documented in this encounter 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 Care Teams Seed Analyst Relationship Specialty Start Date End Date Kirt Lindsay DO PCP - General 05/02/17 11/22/20 documented as of this encounter
--- OUTSIDE RECORDS SUMMARY | 2024-11-22 11:09 | XMS_ITS | Encounter Summary ---
Author Organization [facility] Address [address] [place] [address] Phone Care Team Providers Care Spooler Operator Name Role Phone Kirt Lindsay DO Primary Care Provider [phone]- [phone] Encounter Details Date Type Department Care Team (Late st Contact Info) Description 05/06/2018 Orders Only [facility] Bone Marrow Transplant [address] [facility] Advanced Medicine 7th Floor, [place] [address] Justine Jones RN Cough (Primary Dx); Osteopenia, unspecified location; 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); Inzhz-qhcdlq-niis disease (CMS/HCC); Type 2 diabetes mellitus with hyperglycemia, with long-term current use of insulin (CMS/[facility]) Social History Tobacco Use Types Packs/Day Years Used Date Smoking Tobacco: Every Day Sex and Gender Information Value Date Recorded Sex Assigned at Not on file 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 Take 2 tablets the first day, then 1 tablet daily for 4 days. 6 tablet 05/06/2018 8 documented in this encounter Plan of Treatment Not on file documented as of this encounter Visit Diagnoses Diagnosis Cough- Primary Osteopenia, unspecified location AML (acute myeloid leukemia) in remission (HCC) Sajco-clbskc-sppi disease (HCC) Type 2 diabetes mellitus with hyperglycemia, with long-term current use of insulin (HCC) documented in this encounter Historical Medications * This list may reflect changes made after this encounter. 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 11/03/2012 06/24/2018 XARELTO 20 mg tabletIndication s:AML (acute myeloid leukemia) in remission (HCC) Take 1 tablet by mouth daily. 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 12/18/2017 06/09/2018 nicotine (NICODERM CQ) 7 mgIndications:AM L (acute myeloid leukemia) in remission (HCC) Place on the skin. 12/18/2017 11/25/2018 mycophenolate mofetil (CELLCEPT) 500 mg tabletIndication s:AML (acute myeloid leukemia) in remission (HCC),Graft-vers us-host disease (HCC) Take 2 tablets by mouth 2 (two) times a day. 11/03/2012 07/17/2018 metFORMIN XR (GLUCOPHAGE XR) 500 mg 24 hr tabletIndication s:AML (acute myeloid leukemia) in remission (HCC) Take 1 tablet by mouth 2 (two) times a day. 12/21/2016 11/24/2018 insulin glargine (LANTUS U-100 INSULIN) 100 unit/mL injectionIndicat ions:AML (acute myeloid leukemia) in remission (HCC),Type 2 diabetes mellitus with hyperglycemia, with long-term current use of insulin ([facility]) INJECT 15 UNIT BEDTIME 12/18/2017 06/06/2018 insulin lispro (HumaLOG U-100 Insulin) 100 unit/mL injectionIndicat ions:AML (acute myeloid leukemia) in remission (HCC),Type 2 diabetes mellitus with hyperglycemia, with long-term current use of insulin ([facility]) 1-3 units subQ 3 times a day sliding scale for greater than 150 (1u for every 25 over 150) 12/18/2017 06/06/2018 glucagon (glucagon) 1 mg kitIndications:A ML (acute myeloid leukemia) in remission (HCC) USE DIRECTED AT SCHOOL AND HOME 12/14/2013 11/28/2019 gabapentin (NEURONTIN) 100 mg capsuleIndicatio ns:AML (acute myeloid leukemia) in remission (HCC) Take 1 capsule by mouth as needed. 05/31/2017 11/25/2018 fludrocortisone 0.1 mg tabletIndication s:AML (acute myeloid leukemia) in remission (HCC) Take 1 tablet by mouth 2 times daily. 12/18/2017 08/24/2018 pen needle, diabetic (BD ULTRA-FINE MINI PEN NEEDLE) 31 gauge x 3/16 needleIndication s:AML (acute myeloid leukemia) in remission (HCC),Type 2 diabetes mellitus with hyperglycemia, with long-term current use of insulin ([facility]) USE DIRECTED. 08/31/2015 06/06/2018 atorvastatin (LIPITOR) 40 mg tabletIndication s:AML (acute myeloid leukemia) in remission (HCC),Type 2 diabetes mellitus with hyperglycemia, with long-term current use of insulin ([facility]) Take 1 tablet by mouth daily. 12/14/2016 07/28/2018 VENTOLIN HFA 90 mcg/actuation inhalerIndicatio ns:AML (acute myeloid leukemia) in remission (HCC) Inhale 1-2 puffs every 4 (four) hours as needed. 04/18/2018 07/17/2018 fluticasone-salm eterol (ADVAIR DISKUS) 100-50 mcg/dose diskus inhalerIndicatio ns:AML (acute myeloid leukemia) in remission (HCC) Inhale 1 puff 2 times daily. 12/18/2017 09/07/2018 acyclovir (ZOVIRAX) 400 mg tabletIndication s: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 05/24/2010 07/28/2018 added in this encounter 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 Care Teams Spooler Operator Relationship Specialty Start Date End Date Kirt Lindsay DO PCP - General 05/02/17 11/22/20 documented as of this encounter
--- OUTSIDE RECORDS SUMMARY | 2024-11-22 11:10 | XMS_ITS | Encounter Summary ---
Author Organization [facility] Address [address] [facility] [address] [place] [address] Phone Care Team Providers Care Unitizer Name Role Phone Kirt Lindsay DO Primary Care Provider [phone] Josué Del Valle MD PhD Unavailable [phone] Halie Khan MD Primary Care Provider [phone] Kirt Lindsay DO Primary Care Provider [phone]- [phone] Tay Charlton MD Unavailable [phone] Halie Khan MD Unavailable [phone] StarksAnt goldman MD Unavailable [phone]- [phone] Dillon Calreed Dorado DO Unavailable [phone] Halie Khan MD Unavailable [phone] Wilfred Kinsey MD Unavailable Encounter Details Date Type Department Care Team (Latest Contact Info) Description 11/27/2017 Orders Only [facility] CONVERSION Scanning, Provider Social History Tobacco Use Types Packs/Day Years Used Date Smoking Tobacco: Never Assessed Sex and Gender Information Value Date Recorded Sex Assigned at Not on file 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 Gender Identity Not on file Sexual Orientation Not on file documented as of this encounter Plan of Treatment Not on file documented as of this encounter Procedures Procedure Name Priority Date/Time Associated Diagnosis Comments VASCULAR LABORATORY REPORT 11/27/2017 4:04 PM COREMAKER PIPE VASCULAR LABORATORY REPORT 11/27/2017 4:04 PM COREMAKER PIPE documented in this encounter Results * VASCULAR LABORATORY REPORT (11/27/2017 4:04 PM COREMAKER PIPE) Anatomical Region Laterality Modality Ultrasound us Provider Scanning CV VASCULAR PROCEDURES Final R esult * VASCULAR LABORATORY REPORT (11/27/2017 4:04 PM COREMAKER PIPE) Anatomical Region Laterality Modality Ultrasound us Provider Scanning CV VASCULAR PROCEDURES Final R esult documented in this [...] IP epi, ok to come off precautions. Lissy Johnson RN +AFB stain 06/17/2024 06/17/2024 06/18/2024 10:45 AM CDT C. 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 07/23/2024 07/24/2024 07/24/2024 4:49 AM CDT documented as of this encounter Care Teams Unitizer Relationship Specialty Start Date End Date Kirt Lindsay DO PCP - General 05/02/17 11/22/20 Halie Khan MD [address] [address] PCP - General Critical Care Med 11/23/20 02/01/21 Kirt Lindsay DO PCP - General Internal Medicine 02/02/21 Josué Del Valle MD PhD Medical Oncologist/Industrial Safety And Health Specialist Medical Oncology 08/26/19 Tay Charlton MD [address] [address] Consulting Physician Gastroenterology 12/03/21 06/11/23 Halie Khan MD [address] [address] Consulting Physician Pulmonary Disease 12/12/21 3 Ant Starks MD [address] [facility] [address] [place] [address] Consulting Physician Transplant Hepatology 01/12/22 Cal Carranza DO [address] [facility] [address] [place] [address] Wastewater Treatment Plant Chemist Internal Medicine 06/12/23 Halie Khan MD [address] [facility] [address] [place] [address] Echocardiography Radiology Technologist Critical Care Med 06/12/23 Wilfred Kinsey MD [address] [address] Consulting Physician Gastroenterology 03/02/24 documented as of this encounter
--- OUTSIDE RECORDS SUMMARY | 2024-11-22 11:10 | XMS_ITS | Encounter Summary ---
Author Organization [facility] Healthcare Address [address] [place] [address] Care Team Providers Care National Sales Manager Name Role Phone Unavailable Primary Care Provider Unavailabl e Encounter Details Date Type Department Care Team (Late st Contact Info) Description 02/04/2017 Orders Only [facility] [phone] Josué Del Valle MD PhD [address] IM BONE MARROW TRANSPLANT[address] [place], [place] [id number] Social History Tobacco Use Types Packs/Day Years Used Date Smoking Tobacco: Never Assessed Sex and Gender Information Value Date Recorded Sex Assigned at Not on file 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 Gender Identity Not on file Sexual Orientation Not on file documented as of this encounter Plan of Treatment Not on file documented as of this encounter Procedures Procedure Name Priority Date/Time Associated Diagnosis Comments HEMOGLOBIN A1C Routine Gen Lab 02/04/2017 8:20 AM CDT documented in this encounter Results * (ABNORMAL) Hemoglobin A1c (02/04/2017 8:20 AM CDT) Hgb A1C 6.6(H) 4.0 - 6.0 % [facility] Estimated Average Glucose 143 mg/dL [facility] Comment: The ADA recommends reporting an estimated Average Glucose (eAG) with all Hemoglobin A1c results using the equation derived from a study of 507 normal and diabetic adults. ??Minority populations were underrepresented and children were not included. ?? (Diabetes Care 31:6631-3456, 2008). ??The eAG is not equivalent to a fasting glucose. Blood specimen (specimen) 02/04/2017 8:20 AM CDT 02/04/2017 9:20 AM CDT us Josué Del Valle MD PhD LAB BLOOD ORDERABLES Arun tamiko Result - Final [facility] One [facility] Department [place] [address] documented in this encounter Visit Diagnoses Not on filedocumented in this encounter 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
--- OUTSIDE RECORDS SUMMARY | 2024-11-22 11:10 | XMS_ITS | Encounter Summary ---
Author Organization [facility] Healthcare Address [address] [place] [address] Care Team Providers Care Logger All Round Name Role Phone Unavailable Primary Care Provider Unavailabl e Encounter Details Date Type Department Care Team (Late st Contact Info) Description 02/04/2017 Orders Only [facility] [phone] Josué Del Valle MD PhD [address] DIV IM BONE MARROW TRANSPLANT, [address] [place], [place] [id number] Social History Tobacco Use Types Packs/Day Years Used Date Smoking Tobacco: Never Assessed Sex and Gender Information Value Date Recorded Sex Assigned at Not on file 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 >240 mg/dL Literature Reference: National Cholesterol Education Program (NCEP) Expert Panel on Detection, Evaluation, and Treatment of High Blood Cholesterol in Adults (Adult Treatment Panel III). ??Circulation 2004; 110:227. Current interpretive data was last revised on 2005. Triglycerides 183(H) 0 - 150 mg/dL [facility] Comment: Interpretive Data Desirable: ? < 150 mg/dL Borderline High: ? 150 - 199 mg/dL High: ?> 200 mg/dL Literature Reference: See Cholesterol Current interpretive data was last revised on 07. HDL 51 40 - 199 mg/dL [facility] Comment: Interpretive Data Less than 40 mg/dL - low; A major risk factor for heart disease. Greater than or equal to 60 mg/dL - High; ??considered protective of heart disease. Literature Reference: See Cholesterol Current interpretive data was last revised on 2008. LDL, calculated 86 0 - 129 mg/dL [facility] Comment: Interpretive Data Optimal: ? < 100 mg/dL Near Optimal: ?100 - 129 mg/dL Borderline High: ?? 130 - 159 mg/dL High: ?> 160 mg/dL Literature Reference: See Cholesterol Current interpretive data was last revised on 07. Non-HDL Cholesterol 122 mg/dL [facility] Comment: Interpretive Data When triglycerides are >200 mg/dL, non-HDL C is a secondary target of therapy, with a goal 30 mg/dL higher than the identified LDL-C goal. Reference: ??See Cholesterol Reference. Current interpretive data was last revised 2012. Blood specimen (specimen) 02/04/2017 8:20 AM CDT 02/04/2017 8:38 AM CDT us Josué Del Valle MD PhD LAB BLOOD ORDERABLES Arun tamiko Result - Final [facility] Department [place] [address] documented in this encounter Visit Diagnoses Not on filedocumented in this encounter 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
--- OUTSIDE RECORDS SUMMARY | 2024-11-22 11:10 | XMS_ITS | Encounter Summary ---
Author Organization [facility] Healthcare Address [address] [place] [address] Care Team Providers Care Timber Sizer Name Role Phone Unavailable Primary Care Provider Unavailabl e Encounter Details Date Type Department Care Team (Late st Contact Info) Description 02/04/2017 Orders Only [facility] [phone] Josué Del Valle MD PhD [address] IM BONE MARROW TRANSPLANT, [address] [place], [place] [id number] Social History Tobacco Use Types Packs/Day Years Used Date Smoking Tobacco: Never Assessed Sex and Gender Information Value Date Recorded Sex Assigned at Not on file 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 Blood specimen (specimen) 02/04/2017 8:20 AM CDT 02/04/2017 9:21 AM CDT us Josué Del Valle MD PhD LAB BLOOD ORDERABLES Fin al Result Performing Organization Address City/State/[facility] Co w[place] Phone Number [facility] One [facility] [place] [address] documented in this encounter Visit Diagnoses Not on filedocumented in this encounter 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
--- OUTSIDE RECORDS SUMMARY | 2024-11-22 11:10 | XMS_ITS | Encounter Summary ---
Author Organization [facility] Healthcare Address [address] [place] [address] Care Team Providers Care Chief Executive Officer Name Role Phone Unavailable Primary Care Provider Unavailabl e Encounter Details Date Type Department Care Team (Late st Contact Info) Description 02/04/2017 Orders Only [facility] [phone] Josué Del Valle MD PhD [address] DIV IM BONE MARROW TRANSPLANT, [address] [place], [place] [id number] Social History Tobacco Use Types Packs/Day Years Used Date Smoking Tobacco: Never Assessed Sex and Gender Information Value Date Recorded Sex Assigned at Not on file 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 Gender Identity Not on file Sexual Orientation Not on file documented as of this encounter Plan of Treatment Not on file documented as of this encounter Procedures Procedure Name Priority Date/Time Associated Diagnosis Comments PSA DIAGNOSTIC Routine Gen Lab 02/04/2017 8:20 AM CDT documented in this encounter Results * PSA diagnostic (02/04/2017 8:20 AM CDT) PSA-Total 0.7 0.1 - 4.0 ng/mL [facility] Blood specimen (specimen) 02/04/2017 8:20 AM CDT 02/04/2017 9:56 AM CDT us Josué Del Valle MD PhD LAB BLOOD ORDERABLES Fin al Result Performing Organization Address City/State/[facility] Co de Phone Number [facility] One [facility] Department [place] [address] documented in this encounter Visit Diagnoses Not on filedocumented in this encounter 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
--- OUTSIDE RECORDS SUMMARY | 2024-11-22 11:10 | XMS_ITS | Encounter Summary ---
Author Organization [facility] Healthcare Address [address] [place] [address] Care Team Providers Care Roll Winder Name Role Phone Kirt Lindsay DO Primary Care Provider [phone]- [phone] Encounter Details Date Type Department Care Team (Latest Contact Info) Description 05/30/2017 4:55 PM CDT - 06/25/2017 11:59 PM T Hospital Encounter 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 08/31/2015 06/06/2018 tacrolimus (PROGRAF) 0.5 mg capsuleIndicatio ns:AML (acute [...] Procedure Name Priority Date/Time Associated Diagnosis Comments HIV 1/2 ANTIBODY PLUS P24 ANTIGEN Routine Gen Lab 06/25/2017 1:06 PM CDT TACROLIMUS LEVEL, RANDOM Routine Gen Lab 06/25/2017 1:05 PM CDT HEPATITIS PANEL, ACUTE Routine Gen Lab 06/25/2017 1:05 PM CDT HEPATITIS B CORE ANTIBODY, TOTAL Routine Gen Lab 06/25/2017 1:05 PM CDT CBC WITH AUTO DIFFERENTIAL Routine Gen Lab 06/25/2017 1:02 PM CDT VITAMIN D 25 HYDROXY Routine Gen Lab 05/31/2017 10:12 AM CDT HEMOGLOBIN A1C Routine Gen Lab 05/31/2017 10:12 AM CDT DISCHARGE LABORATORY CUMULATIVE REPORT 05/30/2017 12:00 AM CDT documented in this encounter Results * HIV-1 and HIV-2 antibody with P24 antigen immunoassay (06/25/2017 1:06 PM CDT) Pathologist [facility] HIV 1/2 ab + p24 ag Nonreactive Nonreactive [facility] Comment:Negative for HIV-1 a ntigen and HIV-1/ HIV-2 antibodies. No laboratory evidence of HIV infection. If acute HIV infection is suspected, consider testing for HIV-1 RNA. Blood specimen (specimen) 06/25/2017 1:06 PM CDT 06/25/2017 1:36 PM CDT Josué Del Valle MD PhD LAB MICROBIOLOGY - [facility] AL ORDERABLES Final Result [facility] [place] [address] * Hepatitis panel, acute (06/25/2017 1:05 PM CDT) Pathologist [facility] Hep A IgM Nonreactive Nonreactive [facility] Comment: Interpretive Data If test is reported as GRAYZONE, new sample should be drawn in two weeks for testing. Current interpretive data was last revised on 2016. Hep B core IgM Nonreactive Nonreactive [facility] Comment: Interpretive Data If test is reported as GRAYZONE, new sample should be drawn for testing. Current interpretive data was last revised on 2016. Hep C Ab Nonreactive Nonreactive [facility] Comment: Interpretive Data Positive and greyzone results should be confirmed by a molecular method. If positive or greyzone, a second separately collected sample should be submitted for Hepatitis C Virus RNA. Detection and Quantitation by Real-Time Reverse Core Dipper-PCR.Current Interpretive data was last revised on 2017. HepBsAg Nonreactive Nonreactive [facility] Blood specimen (specimen) 06/25/2017 1:05 PM CDT 06/25/2017 1:32 PM CDT Josué Del Valle MD PhD LAB MICROBIOLOGY - GENER AL ORDERABLES Edited Result - Final Performing Organization Address [facility] de Phone Number [facility] [place] [address] [place] [address] * Hepatitis B core antibody, total (06/25/2017 1:05 PM CDT) Hep B core IgG/IgM Nonreactive Nonreactive [facility] Blood specimen (specimen) 06/25/2017 1:05 PM CDT 06/25/2017 1:35 PM CDT Josué Del Valle MD PhD LAB MICROBIOLOGY - GENER AL ORDERABLES Edited Result - Final Performing Organization Address [facility] de Phone Number [facility] [place] [address] [place] [address] * Tacrolimus level, random (06/25/2017 1:05 PM CDT) Tacrolimus, random 2.6 ng/mL [facility] Comment: Interpretive Data Testing performed by liquid chromatography-tandem mass spectrometry (LC- MS/MS).This test was developed using an analyte specific reagent. Its performance characteristics were determined by the [facility] in a manner consistent with CLIA requirements. ??This test has not been cleared or approved by the U.S. Food and Drug Administration. Current interpretive data was last revised on 2016. Blood specimen (specimen) 06/25/2017 1:05 PM CDT 06/25/2017 1:32 PM CDT us Josué Del Valle MD PhD LAB BLOOD ORDERABLES Fin al Result [facility] [place] [address] * (ABNORMAL) CBC with auto differential (06/25/2017 1:02 PM CDT) WBC 9.2 3.8 - 9.8 K/cumm [facility] RBC 4.20(L) 4.50 - 5.70 M/cumm [facility] Hgb 14.6 13.8 - 17.2 g/dL [facility] Hct 42.2 40.7 - 50.3 % [facility] Mean Cellular Volume - CAM 100.4(H) 80.0 - 97.6 fL [facility] Mean Cellular Hemoglobin - CAM 34.7(H) 26.7 - 33.7 pg [facility] Mean Cellular Hemoglobin Concentration - CAM 34.5 32.7 - 35.5 g/dL [facility] Rdw 13.2 11.8 - 14.6 % [facility] Plt 251 140 - 440 K/cumm [facility] Mean Platelet Volume - CAM 7.3 6.8 - 10.4 fL [facility] Neutrophil pct 49.6 38.7 - 74.5 % [facility] Lymphocyte pct 35.7 20.0 - 54.3 % [facility] Monos 8.2 4.3 - 13.5 % [facility] Eosinophil pct 5.3 0.0 - 6.0 % [facility] Basophil pct 1.2 0.0 - 3.0 % [facility] Neutrophil abs 4.6 1.8 - 6.6 K/cumm [facility] Lymphocyte abs 3.3 1.2 - 3.3 K/cumm [facility] Monocyte abs 0.8 0.2 - 1.2 K/cumm [facility] Eosinophils, abs 0.5 0.0 - 0.5 K/cumm [facility] Basophil abs 0.1 0.0 - 0.2 K/cumm [facility] NRBC 0.0 0.0 - 0.2 % [facility] NRBC abs 0.00 0.00 - 0.01 K/cumm [facility] Blood specimen (specimen) 06/25/2017 1:02 PM CDT 06/25/2017 1:07 PM CDT Result [facility] Josué Del Valle MD PhD LAB BLOOD ORDERABLES Fin al Result Performing Organization Address [facility] de Phone Number [facility] [place] [address] * (ABNORMAL) Vitamin D 25 hydroxy (05/31/2017 10:12 AM CDT) Vitamin D 25-OH 20.0(L) 30.0 - 100.0 ng/mL [facility] Blood specimen (specimen) 05/31/2017 10:12 AM CDT 05/31/2017 10:34 AM CDT Result [facility] Eneida Gibson MD LAB BLOOD ORDERABLES Final Resul t Performing Organization Address [facility] de Phone Number [facility] [place] [address] * Hemoglobin A1c (05/31/2017 10:12 AM CDT) Pathologist [facility] Hgb A1C 5.9 4.0 - 6.0 % [facility] Estimated Average Glucose 123 mg/dL [facility] Comment: The ADA recommends reporting an estimated Average Glucose (eAG) with all Hemoglobin A1c results using the equation derived from a study of 507 normal and diabetic adults. ??Minority populations were underrepresented and children were not included. ?? (Diabetes Care 31:3987-3880, 2008). ??The eAG is not equivalent to a fasting glucose. Blood specimen (specimen) 05/31/2017 10:12 AM CDT 05/31/2017 10:34 AM CDT Result [facility] Eneida Gibson MD LAB BLOOD ORDERABLES Edited Resu lt - Final Performing Organization Address [facility] de Phone Number [facility] Department [place] [address] * DISCHARGE LABORATORY CUMULATIVE REPORT (05/30/2017 12:00 AM CDT) Narrative 05/30/2017 12:00 AM CDT Ordered by an unspecified provider. 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
--- OUTSIDE RECORDS SUMMARY | 2024-11-22 11:10 | XMS_ITS | Encounter Summary ---
Author Organization [facility] Healthcare Address [address] [place] [address] Care Team Providers Care Elastic Attacher Zigzag Name Role Phone Unavailable Primary Care Provider Unavailabl e Encounter Details Date Type Department Care Team (Late st Contact Info) Description 02/04/2017 Orders Only [facility] Interim [phone] Josué Del Valle MD PhD [address] IM BONE MARROW TRANSPL[address] [place], [place] [id number] Social History Tobacco Use Types Packs/Day Years Used Date Smoking Tobacco: Never Assessed Sex and Gender Information Value Date Recorded Sex Assigned at Not on file 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 Gender Identity Not on file Sexual Orientation Not on file documented as of this encounter Plan of Treatment Not on file documented as of this encounter Procedures Procedure Name Priority Date/Time Associated Diagnosis Comments T4, FREE Routine Gen Lab 02/04/2017 8:20 AM CDT documented in this encounter Results * T4, free (02/04/2017 8:20 AM CDT) Free T4 1.16 0.90 - 1.70 ng/dL [facility] Blood specimen (specimen) 02/04/2017 8:20 AM CDT 02/04/2017 9:21 AM CDT us Josué Del Valle MD PhD LAB BLOOD ORDERABLES Arun tamiko Result - Final [facility] [place] [address] documented in this encounter Visit Diagnoses Not on filedocumented in this encounter 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
--- OUTSIDE RECORDS SUMMARY | 2024-11-22 11:10 | XMS_ITS | Encounter Summary ---
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 Gender Identity Not on file Sexual Orientation Not on file documented as of this encounter Plan of Treatment Not on file documented as of this encounter Procedures Procedure Name Priority Date/Time Associated Diagnosis Comments LACTATE DEHYDROGENASE Routine Gen Lab 02/04/2017 8:20 AM CDT documented in this encounter Results * Lactate dehydrogenase (LD) (02/04/2017 8:20 AM CDT) Lactate dehydrogenase (LDH) 176 100 - 250 Units/L [facility] Blood specimen (specimen) 02/04/2017 8:20 AM CDT 02/04/2017 8:38 AM CDT us Josué Del Valle MD PhD LAB BLOOD ORDERABLES Fin al Result Performing Organization Address City/State/[facility] Co de Phone Number [facility] Department [place] [address] documented in this encounter Visit Diagnoses Not on filedocumented in this encounter 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
--- OUTSIDE RECORDS SUMMARY | 2024-11-22 11:10 | XMS_ITS | Encounter Summary ---
Author Organization [facility] Healthcare Address [address] [place] [address] Care Team Providers Care Human Resources Representative Name Role Phone Unavailable Primary Care Provider Unavailabl e Encounter Details Date Type Department Care Team (Late st Contact Info) Description 02/04/2017 Orders Only [facility] Inter[facility] [phone] Josué Del Valle MD PhD [address] DIV IM BONE MARROW TRANSPLANT, [address] [place], [place] [id number] Social History Tobacco Use Types Packs/Day Years Used Date Smoking Tobacco: Never Assessed Sex and Gender Information Value Date Recorded Sex Assigned at Not on file 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 Gender Identity Not on file Sexual Orientation Not on file documented as of this encounter Plan of Treatment Not on file documented as of this encounter Procedures Procedure Name Priority Date/Time Associated Diagnosis Comments COMPREHENSIVE METABOLIC PANEL Routine Gen Lab 02/04/2017 8:20 AM CDT documented in this encounter Results * (ABNORMAL) Comprehensive metabolic panel (02/04/2017 8:20 AM CDT) Sodium 137 135 - 145 mmol/L [facility] Potassium, pl 4.2 3.3 - 4.9 mmol/L [facility] CO2 32 22 - 32 mmol/L [facility] BUN 15 8 - 25 mg/dL [facility] Glucose 206(H) 70 - 199 mg/dL [facility] Creatinine 0.79 0.70 - 1.30 mg/dL [facility] Calcium 9.8 8.5 - 10.3 mg/dL [facility] Chloride 100 97 - 110 mmol/L [facility] Comment:fixed result mapping Albumin 4.0 3.5 - 5.0 g/dL [facility] AST 108(H) 10 - 50 Units/L [facility] ALT 128(H) 7 - 55 Units/L [facility] Alk phos 445(H) 40 - 130 Units/L [facility] Bilirubin, total 0.7 0.1 - 1.2 mg/dL [facility] Protein, pl 7.6 6.5 - 8.5 g/dL [facility] Anion gap 5 2 - 15 mmol/L [facility] Blood specimen (specimen) 02/04/2017 8:20 AM CDT 02/04/2017 8:38 AM CDT us Josué Del Valle MD PhD LAB BLOOD ORDERABLES Fin al Result [facility] One [facility] [place] [address] documented in this encounter Visit Diagnoses Not on filedocumented in this encounter 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
--- OUTSIDE RECORDS SUMMARY | 2024-11-22 11:10 | XMS_ITS | Encounter Summary ---
Author Organization [facility] Healthcare Address [address] [place] [address] Care Team Providers Care Livestock Caretaker Name Role Phone Kirt Lindsay DO Primary Care Provider [phone] Encounter Details Date Type Department Care Team (Latest Contact Info) Description 11/23/2017 4:28 PM CITY CONTROLLER - 12/13/2017 5:07 PM CITY CONTROLLER Hospital Encounter [facility] ADMIT [address] [place] [address] Sourav Callejas MD [address] [facility] [address] [place] [address] Francis Park MD PhD [address] [facility] [address] [place] [address] Discharge Disposition: Discharge to home or self care Social History Tobacco Use Types Packs/Day Years Used Date Smoking Tobacco: Never Assessed Sex and Gender Information Value Date Recorded Sex Assigned at Not on file Legal Sex Male 10:48 AM CITY CONTROLLER Gender Identity Not on file Sexual Orientation Not on file documented as of this encounter Last Filed Vital Signs Vital Sign Reading Time Taken Comments Blood Pressure 95/51 12/13/2017 4:40 PM CITY CONTROLLER Pulse 67 12/13/2017 4:40 PM CITY CONTROLLER Temperature - - Respiratory Rate - - Oxygen Saturation 93% 12/13/2017 4:40 PM CITY CONTROLLER Inhaled Oxygen Concentration - - Weight 58 kg (127 lb 15.6 oz) 12/10/2017 8:33 PM CITY CONTROLLER Height 177.8 cm (5' 10 ) 11/23/2017 4:50 PM CITY CONTROLLER Body Mass Index 18.36 11/23/2017 4:50 PM CITY CONTROLLER documented in this encounter Medications at Time [...] Procedure Name Priority Date/Time Associated Diagnosis Comments GLUCOSE POC Routine Gen Lab 12/13/2017 1:56 PM CITY CONTROLLER GLUCOSE POC Routine Gen Lab 12/13/2017 9:24 AM CITY CONTROLLER MORPHOLOGY EXAM After X-Ray 12/13/2017 3:18 AM CITY CONTROLLER TACROLIMUS LEVEL, TROUGH After X-Ray 018 3:18 AM CITY CONTROLLER CBC WITHOUT DIFFERENTIAL After X-Ray 018 3:18 AM CITY CONTROLLER PHOSPHORUS After X-Ray 12/13/2017 3:18 AM CITY CONTROLLER MAGNESIUM After X-Ray 12/13/2017 3:18 AM CITY CONTROLLER HEPATIC FUNCTION PANEL After X-Ray 8 3:18 AM CITY CONTROLLER BASIC METABOLIC PANEL After X-Ray 12/13/2017 3:18 AM CITY CONTROLLER DISCHARGE LABORATORY CUMULATIVE REPORT 12/13/2017 12:00 AM CITY CONTROLLER GLUCOSE POC Routine Gen Lab 12/12/2017 8:36 PM CITY CONTROLLER XR CHEST 1 VIEW Routine 12/12/2017 6:00 PM CITY CONTROLLER US GUIDED THORACENTESIS Routine 12/12/19 18 5:43 PM CITY CONTROLLER GLUCOSE POC Routine Gen Lab 12/12/2017 4:14 PM CITY CONTROLLER GLUCOSE, BODY FLUID W/PROMPTS After X-Ray 12/12/2017 12:15 PM CITY CONTROLLER FLUID REFERENCE RANGE After X-Ray 12/12/2017 12:15 PM CITY CONTROLLER CYTOLOGY Routine 12/12/2017 12:15 PM CITY CONTROLLER BODY FLUID CELL COUNT WITH DIFFERENTIAL After X-Ray 12/12/2017 12:15 PM CITY CONTROLLER PROTEIN, BODY FLUID After X-Ray 12/12/2017 12:15 PM CITY CONTROLLER LACTATE DEHYDROGENASE, BODY FLUID After X-Ray 12/12/2017 12:15 PM CITY CONTROLLER PH, PLEURAL FLUID Routine Gen Lab 12/12/2017 12:15 PM CITY CONTROLLER BODY FLUID AEROBIC AND ANAEROBIC CULTURE AND GRAM STAIN Routine Gen Lab 12/12/2017 12:14 PM CITY CONTROLLER LEUKEMIA/LYMPHOMA STUDIES Routine Gen Lab 12/12/2017 11:19 AM CITY CONTROLLER SURGICAL PATHOLOGY Routine 12/12/2017 11:19 AM CITY CONTROLLER GLUCOSE POC Routine Gen Lab 12/12/2017 8:50 AM CITY CONTROLLER MORPHOLOGY EXAM After X-Ray 12/12/2017 3:40 AM CITY CONTROLLER TACROLIMUS LEVEL, TROUGH After X-Ray 018 3:40 AM CITY CONTROLLER CBC WITHOUT DIFFERENTIAL After X-Ray 018 3:40 AM CITY CONTROLLER TYPE AND SCREEN After X-Ray 12/12/2017 3:40 AM CITY CONTROLLER PHOSPHORUS After X-Ray 12/12/2017 3:40 AM CITY CONTROLLER MAGNESIUM After X-Ray 12/12/2017 3:40 AM CITY CONTROLLER LACTATE DEHYDROGENASE After X-Ray 12/12/2017 3:40 AM CITY CONTROLLER COMPREHENSIVE METABOLIC PANEL After X-Ray 12/12/2017 3:40 AM CITY CONTROLLER CYTOLOGY 12/12/2017 12:00 AM CITY CONTROLLER SURGICAL PATHOLOGY 12/12/2017 12:00 AM CITY CONTROLLER GLUCOSE POC Routine Gen Lab 12/11/2017 9:35 PM CITY CONTROLLER GLUCOSE POC Routine Gen Lab 12/11/2017 5:54 PM CITY CONTROLLER TACROLIMUS LEVEL, TROUGH After X-Ray 018 3:56 PM CITY CONTROLLER LEGIONELLA PNEUMOPHILIA ANTIGEN, URINE RTNm 12/11/2017 3:56 PM CITY CONTROLLER HISTOPLASMA ANTIGEN RTNm 12/11/2017 3 :56 PM CITY CONTROLLER GLUCOSE POC Routine Gen Lab 12/11/2017 1:07 PM CITY CONTROLLER GLUCOSE POC Routine Gen Lab 12/11/2017 9:24 AM CITY CONTROLLER HEPATIC FUNCTION PANEL After X-Ray 8 6:32 AM CITY CONTROLLER BASIC METABOLIC PANEL STAT 12/11/2017 6:32 AM CITY CONTROLLER MORPHOLOGY EXAM After X-Ray 12/11/2017 3:30 AM CITY CONTROLLER CBC WITHOUT DIFFERENTIAL After X-Ray 018 3:30 AM CITY CONTROLLER PHOSPHORUS After X-Ray 12/11/2017 3:30 AM CITY CONTROLLER MAGNESIUM After X-Ray 12/11/2017 3:30 AM CITY CONTROLLER HEPATIC FUNCTION PANEL After X-Ray 8 3:30 AM CITY CONTROLLER BASIC METABOLIC PANEL After X-Ray 12/11/2017 3:30 AM CITY CONTROLLER GLUCOSE POC Routine Gen Lab 12/10/2017 8:53 PM CITY CONTROLLER TACROLIMUS LEVEL, RANDOM Routine Gen Lab 12/10/2017 8:27 PM CITY CONTROLLER GLUCOSE POC Routine Gen Lab 12/10/2017 4:52 PM CITY CONTROLLER GLUCOSE POC Routine Gen Lab 12/10/2017 11:38 AM CITY CONTROLLER GLUCOSE POC Routine Gen Lab 12/10/2017 10:17 AM CITY CONTROLLER MORPHOLOGY EXAM After X-Ray 12/10/2017 3:02 AM CITY CONTROLLER CBC WITHOUT DIFFERENTIAL After X-Ray 018 3:02 AM CITY CONTROLLER PHOSPHORUS After X-Ray 12/10/2017 3:02 AM CITY CONTROLLER MAGNESIUM After X-Ray 12/10/2017 3:02 AM CITY CONTROLLER HEPATIC FUNCTION PANEL After X-Ray 8 3:02 AM CITY CONTROLLER BASIC METABOLIC PANEL After X-Ray 12/10/2017 3:02 AM CITY CONTROLLER BLOOD CULTURE RTNm 12/10/2017 1:18 AM CITY CONTROLLER BLOOD CULTURE RTNm 12/10/2017 1:18 AM CITY CONTROLLER GLUCOSE POC Routine Gen Lab 12/09/2017 9:12 PM CITY CONTROLLER GLUCOSE POC Routine Gen Lab 12/09/2017 6:52 PM CITY CONTROLLER GLUCOSE POC Routine Gen Lab 12/09/2017 3:[address] CHEST WO CONTRAST Routine 12/09/2017 1:28 PM CITY CONTROLLER GLUCOSE POC Routine Gen Lab 12/09/2017 8:54 AM CITY CONTROLLER CMV DNA QN, PCR After X-Ray 12/09/2017 4:17 AM CITY CONTROLLER MORPHOLOGY EXAM After X-Ray 12/09/2017 4:17 AM CITY CONTROLLER TACROLIMUS LEVEL, RANDOM After X-Ray 018 4:17 AM CITY CONTROLLER APTT After X-Ray 12/09/2017 4:17 AM CITY CONTROLLER PROTIME-INR After X-Ray 12/09/2017 4:17 AM CITY CONTROLLER CBC WITHOUT DIFFERENTIAL After X-Ray 018 4:17 AM CITY CONTROLLER TYPE AND SCREEN After X-Ray 12/09/2017 4:17 AM CITY CONTROLLER PHOSPHORUS After X-Ray 12/09/2017 4:17 AM CITY CONTROLLER MAGNESIUM After X-Ray 12/09/2017 4:17 AM CITY CONTROLLER LACTATE DEHYDROGENASE After X-Ray 12/09/2017 4:17 AM CITY CONTROLLER COMPREHENSIVE METABOLIC PANEL After X-Ray 12/09/2017 4:17 AM CITY CONTROLLER US ABDOMEN LIMITED Routine 12/09/2017 1: 27 AM CITY CONTROLLER GLUCOSE POC Routine Gen Lab 12/08/2017 9:46 PM CITY CONTROLLER GLUCOSE POC Routine Gen Lab 12/08/2017 5:33 PM CITY CONTROLLER GLUCOSE POC Routine Gen Lab 12/08/2017 2:27 PM CITY CONTROLLER GLUCOSE POC Routine Gen Lab 12/08/2017 9:44 AM CITY CONTROLLER POTASSIUM, WHOLE BLOOD STAT 8 9:01 AM CITY CONTROLLER TACROLIMUS LEVEL, RANDOM After X-Ray 018 9:01 AM CITY CONTROLLER MORPHOLOGY EXAM After X-Ray 12/08/2017 3:42 AM CITY CONTROLLER CBC WITHOUT DIFFERENTIAL After X-Ray 018 3:42 AM CITY CONTROLLER PHOSPHORUS After X-Ray 12/08/2017 3:42 AM CITY CONTROLLER MAGNESIUM After X-Ray 12/08/2017 3:42 AM CITY CONTROLLER GAMMA GT After X-Ray 12/08/2017 3:42 AM CITY CONTROLLER HEPATIC FUNCTION PANEL After X-Ray 8 3:42 AM CITY CONTROLLER BASIC METABOLIC PANEL After X-Ray 12/08/2017 3:42 AM CITY CONTROLLER GLUCOSE POC Routine Gen Lab 12/07/2017 9:46 PM CITY CONTROLLER GLUCOSE POC Routine Gen Lab 12/07/2017 7:12 PM CITY CONTROLLER GLUCOSE POC Routine Gen Lab 12/07/2017 2:12 PM CITY CONTROLLER POTASSIUM, WHOLE BLOOD Routine Gen Lab 12/07/2017 9:53 AM CITY CONTROLLER TACROLIMUS LEVEL, RANDOM Routine Gen Lab 12/07/2017 9:53 AM CITY CONTROLLER GLUCOSE POC Routine Gen Lab 12/07/2017 7:38 AM CITY CONTROLLER MORPHOLOGY EXAM After X-Ray 12/07/2017 3:27 AM CITY CONTROLLER CBC WITHOUT DIFFERENTIAL After X-Ray 018 3:27 AM CITY CONTROLLER PHOSPHORUS After X-Ray 12/07/2017 3:27 AM CITY CONTROLLER MAGNESIUM After X-Ray 12/07/2017 3:27 AM CITY CONTROLLER HEPATIC FUNCTION PANEL After X-Ray 8 3:27 AM CITY CONTROLLER BASIC METABOLIC PANEL After X-Ray 12/07/2017 3:27 AM CITY CONTROLLER GLUCOSE POC Routine Gen Lab 12/06/2017 8:51 PM CITY CONTROLLER GLUCOSE POC Routine Gen Lab 12/06/2017 5:44 PM CITY CONTROLLER GLUCOSE POC Routine Gen Lab 12/06/2017 2:05 PM CITY CONTROLLER TACROLIMUS LEVEL, RANDOM STAT 018 1:22 PM CITY CONTROLLER POTASSIUM, WHOLE BLOOD STAT 8 9:02 AM CITY CONTROLLER GLUCOSE POC Routine Gen Lab 12/06/2017 8:45 AM CITY CONTROLLER MORPHOLOGY EXAM After X-Ray 12/06/2017 1:25 AM CITY CONTROLLER HEPARIN ANTI FACTOR XA ACTIVITY After X-Ray 12/06/2017 1:25 AM CITY CONTROLLER CBC WITHOUT DIFFERENTIAL After X-Ray 018 1:25 AM CITY CONTROLLER HEPATIC FUNCTION PANEL After X-Ray 8 1:25 AM CITY CONTROLLER BASIC METABOLIC PANEL After X-Ray 12/06/2017 1:25 AM CITY CONTROLLER GLUCOSE POC Routine Gen Lab 12/05/2017 8:55 PM CITY CONTROLLER GLUCOSE POC Routine Gen Lab 12/05/2017 6:36 PM CITY CONTROLLER GLUCOSE POC Routine Gen Lab 12/05/2017 1:05 PM CITY CONTROLLER XR CHEST 1 VIEW Routine 12/05/2017 12:07 PM CITY CONTROLLER TACROLIMUS LEVEL, TROUGH After X-Ray 018 9:30 AM CITY CONTROLLER GLUCOSE POC Routine Gen Lab 12/05/2017 9:16 AM CITY CONTROLLER MORPHOLOGY EXAM After X-Ray 12/05/2017 5:59 AM CITY CONTROLLER CBC WITHOUT DIFFERENTIAL After X-Ray 018 5:59 AM CITY CONTROLLER TYPE AND SCREEN After X-Ray 12/05/2017 5:59 AM CITY CONTROLLER PHOSPHORUS After X-Ray 12/05/2017 5:59 AM CITY CONTROLLER MAGNESIUM After X-Ray 12/05/2017 5:59 AM CITY CONTROLLER LACTATE DEHYDROGENASE After X-Ray 12/05/2017 5:59 AM CITY CONTROLLER GAMMA GT After X-Ray 12/05/2017 5:59 AM CITY CONTROLLER COMPREHENSIVE METABOLIC PANEL After X-Ray 12/05/2017 5:59 AM CITY CONTROLLER GLUCOSE POC Routine Gen Lab 12/04/2017 8:34 PM CITY CONTROLLER XR CHEST 1 VIEW Routine 12/04/2017 4:23 PM CITY CONTROLLER US GUIDED THORACENTESIS Routine 12/04/19 4:21 PM CITY CONTROLLER GLUCOSE POC Routine Gen Lab 12/04/2017 4:19 PM CITY CONTROLLER GLUCOSE POC Routine Gen Lab 12/04/2017 11:41 AM CITY CONTROLLER LEUKEMIA/LYMPHOMA STUDIES Routine Gen Lab 12/04/2017 9:36 AM CITY CONTROLLER SURGICAL PATHOLOGY Routine 12/04/2017 9: 36 AM CITY CONTROLLER PROTEIN, PLEURAL FLUID Routine Gen Lab 12/04/2017 9:17 AM CITY CONTROLLER GLUCOSE, PLEURAL FLUID Routine Gen Lab 12/04/2017 9:17 AM CITY CONTROLLER ALBUMIN, BODY FLUID W/PROMPTS After X-Ray 12/04/2017 9:16 AM CITY CONTROLLER FLUID REFERENCE RANGE Routine Gen Lab 12/04/2017 9:16 AM CITY CONTROLLER MYCOLOGY (FUNGAL) CULTURE RTNm 2017 9:16 AM CITY CONTROLLER BODY FLUID AEROBIC AND ANAEROBIC CULTURE RTNm 12/04/2017 9:16 AM CITY CONTROLLER CYTOLOGY Routine 12/04/2017 9:16 AM CITY CONTROLLER BODY FLUID CELL COUNT WITH DIFFERENTIAL Routine Gen Lab 12/04/2017 9:16 AM CITY CONTROLLER LACTATE DEHYDROGENASE, BODY FLUID After X-Ray 12/04/2017 9:16 AM CITY CONTROLLER PH, PLEURAL FLUID After X-Ray 12/04/2017 9:1 6 AM CITY CONTROLLER GLUCOSE POC Routine Gen Lab 12/04/2017 8:26 AM CITY CONTROLLER MORPHOLOGY EXAM After X-Ray 12/04/2017 4:24 AM CITY CONTROLLER PROTIME-INR After X-Ray 12/04/2017 4:24 AM CITY CONTROLLER CBC WITHOUT DIFFERENTIAL After X-Ray 2 018 4:24 AM CITY CONTROLLER PHOSPHORUS After X-Ray 12/04/2017 4:24 AM CITY CONTROLLER MAGNESIUM After X-Ray 12/04/2017 4:24 AM CITY CONTROLLER LACTATE DEHYDROGENASE After X-Ray 12/04/2017 4:24 AM CITY CONTROLLER BASIC METABOLIC PANEL After X-Ray 12/04/2017 4:24 AM CITY CONTROLLER CYTOLOGY 12/04/2017 12:00 AM CITY CONTROLLER SURGICAL PATHOLOGY 12/04/2017 12:00 AM CITY CONTROLLER GLUCOSE POC Routine Gen Lab 12/03/2017 10:36 PM CITY CONTROLLER XR CHEST PA LATERAL 2 VIEWS Routine 12/03/2017 8:40 PM CITY CONTROLLER GLUCOSE POC Routine Gen Lab 12/03/2017 7:05 PM CITY CONTROLLER GLUCOSE POC Routine Gen Lab 12/03/2017 1:54 PM CITY CONTROLLER GLUCOSE POC Routine Gen Lab 12/03/2017 8:07 AM CITY CONTROLLER CMV DNA QN, PCR After X-Ray 12/03/2017 3:09 AM CITY CONTROLLER MORPHOLOGY EXAM After X-Ray 12/03/2017 3:09 AM CITY CONTROLLER CBC WITHOUT DIFFERENTIAL After X-Ray 3:09 AM CITY CONTROLLER PHOSPHORUS After X-Ray 12/03/2017 3:09 AM CITY CONTROLLER MAGNESIUM After X-Ray 12/03/2017 3:09 AM CITY CONTROLLER BASIC METABOLIC PANEL After X-Ray 12/03/2017 3:09 AM CITY CONTROLLER GLUCOSE POC Routine Gen Lab 12/02/2017 9:08 PM CITY CONTROLLER GLUCOSE POC Routine Gen Lab 12/02/2017 7:33 PM CITY CONTROLLER GLUCOSE POC Routine Gen Lab 12/02/2017 2:24 PM CITY CONTROLLER RESPIRATORY PATHOGEN PANEL RTNm 12/02/2017 12:02 PM CITY CONTROLLER INFLUENZA A/B PCR RTNm 12/02/2017 12:02 PM CITY CONTROLLER GLUCOSE POC Routine Gen Lab 12/02/2017 9:09 AM CITY CONTROLLER TACROLIMUS LEVEL, TROUGH After X-Ray 018 9:08 AM CITY CONTROLLER MORPHOLOGY EXAM After X-Ray 12/02/2017 3:54 AM CITY CONTROLLER APTT After X-Ray 12/02/2017 3:54 AM CITY CONTROLLER PROTIME-INR After X-Ray 12/02/2017 3:54 AM CITY CONTROLLER CBC WITHOUT DIFFERENTIAL After X-Ray 018 3:54 AM CITY CONTROLLER TYPE AND SCREEN After X-Ray 12/02/2017 3:54 AM CITY CONTROLLER URIC ACID After X-Ray 12/02/2017 3:54 AM CITY CONTROLLER PHOSPHORUS After X-Ray 12/02/2017 3:54 AM CITY CONTROLLER MAGNESIUM After X-Ray 12/02/2017 3:54 AM CITY CONTROLLER LACTATE DEHYDROGENASE After X-Ray 12/02/2017 3:54 AM CITY CONTROLLER COMPREHENSIVE METABOLIC PANEL After X-Ray 12/02/2017 3:54 AM CITY CONTROLLER GLUCOSE POC Routine Gen Lab 12/01/2017 8:13 PM CITY CONTROLLER GLUCOSE POC Routine Gen Lab 12/01/2017 5:[address] CHEST WO CONTRAST Routine 12/01/2017 4:42 PM CITY CONTROLLER GLUCOSE POC Routine Gen Lab 12/01/2017 12:29 PM CITY CONTROLLER INFECTION PREVENTION VRE CULTURE RTNm 12/01/2017 12:27 PM CITY CONTROLLER GLUCOSE POC Routine Gen Lab 12/01/2017 8:46 AM CITY CONTROLLER MORPHOLOGY EXAM After X-Ray 12/01/2017 3:11 AM CITY CONTROLLER CBC WITHOUT DIFFERENTIAL After X-Ray 018 3:11 AM CITY CONTROLLER PHOSPHORUS After X-Ray 12/01/2017 3:11 AM CITY CONTROLLER MAGNESIUM After X-Ray 12/01/2017 3:11 AM CITY CONTROLLER BASIC METABOLIC PANEL After X-Ray 12/01/2017 3:11 AM CITY CONTROLLER GLUCOSE POC Routine Gen Lab 11/30/2017 6:07 PM CITY CONTROLLER GLUCOSE POC Routine Gen Lab 11/30/2017 11:46 AM CITY CONTROLLER GLUCOSE POC Routine Gen Lab 11/30/2017 8:52 AM CITY CONTROLLER MORPHOLOGY EXAM After X-Ray 11/30/2017 2:55 AM CITY CONTROLLER CBC WITHOUT DIFFERENTIAL After X-Ray 018 2:55 AM CITY CONTROLLER PHOSPHORUS After X-Ray 11/30/2017 2:55 AM CITY CONTROLLER MAGNESIUM After X-Ray 11/30/2017 2:55 AM CITY CONTROLLER BASIC METABOLIC PANEL After X-Ray 11/30/2017 2:55 AM CITY CONTROLLER GLUCOSE POC Routine Gen Lab 11/29/2017 8:20 PM CITY CONTROLLER GLUCOSE POC Routine Gen Lab 11/29/2017 6:12 PM CITY CONTROLLER GLUCOSE POC Routine Gen Lab 11/29/2017 1:04 PM CITY CONTROLLER GLUCOSE POC Routine Gen Lab 11/29/2017 9:19 AM CITY CONTROLLER CALCIUM, IONIZED After X-Ray 11/29/2017 9:09 AM CITY CONTROLLER TROPONIN I After X-Ray 11/29/2017 9:08 AM CITY CONTROLLER BASIC METABOLIC PANEL After X-Ray 11/29/2017 6:13 AM CITY CONTROLLER MORPHOLOGY EXAM After X-Ray 11/29/2017 4:33 AM CITY CONTROLLER CBC WITHOUT DIFFERENTIAL After X-Ray 018 4:33 AM CITY CONTROLLER PHOSPHORUS After X-Ray 11/29/2017 4:33 AM CITY CONTROLLER MAGNESIUM After X-Ray 11/29/2017 4:33 AM CITY CONTROLLER BASIC METABOLIC PANEL After X-Ray 11/29/2017 4:33 AM CITY CONTROLLER GLUCOSE POC Routine Gen Lab 11/28/2017 8:01 PM CITY CONTROLLER GLUCOSE POC Routine Gen Lab 11/28/2017 5:41 PM CITY CONTROLLER GLUCOSE POC Routine Gen Lab 11/28/2017 3:04 PM CITY CONTROLLER HEPARIN ANTI FACTOR XA ACTIVITY Routine Gen Lab 11/28/2017 12:58 PM CITY CONTROLLER IGG Routine Gen Lab 11/28/2017 12:58 PM CITY CONTROLLER TACROLIMUS LEVEL, TROUGH After X-Ray 018 8:57 AM CITY CONTROLLER BASIC METABOLIC PANEL After X-Ray 11/28/2017 8:57 AM CITY CONTROLLER GLUCOSE POC Routine Gen Lab 11/28/2017 8:37 AM CITY CONTROLLER GLUCOSE POC Routine Gen Lab 11/28/2017 6:37 AM CITY CONTROLLER TYPE AND SCREEN After X-Ray 11/28/2017 4:38 AM CITY CONTROLLER PROTIME-INR After X-Ray 11/28/2017 3:57 AM CITY CONTROLLER CBC WITHOUT DIFFERENTIAL After X-Ray 018 3:57 AM CITY CONTROLLER CREATININE After X-Ray 11/28/2017 3:57 AM CITY CONTROLLER CRITICAL RESULT CALLBACK CHEMISTRY After X-Ray 11/28/2017 12:50 AM CITY CONTROLLER POTASSIUM LEVEL After X-Ray 11/28/2017 12:50 AM CITY CONTROLLER VANCOMYCIN LEVEL TROUGH After X-Ray 11/28/19 18 12:50 AM CITY CONTROLLER GLUCOSE POC Routine Gen Lab 11/27/2017 10:35 PM CITY CONTROLLER GLUCOSE POC Routine Gen Lab 11/27/2017 9:32 PM CITY CONTROLLER GLUCOSE POC Routine Gen Lab 11/27/2017 6:04 PM CITY CONTROLLER GLUCOSE POC Routine Gen Lab 11/27/2017 11:20 AM CITY CONTROLLER GLUCOSE POC Routine Gen Lab 11/27/2017 9:29 AM CITY CONTROLLER PHOSPHORUS After X-Ray 11/27/2017 4:03 AM CITY CONTROLLER MAGNESIUM After X-Ray 11/27/2017 4:03 AM CITY CONTROLLER COMPREHENSIVE METABOLIC PANEL After X-Ray 11/27/2017 4:03 AM CITY CONTROLLER HEPARIN ANTI FACTOR XA ACTIVITY After X-Ray 11/27/2017 1:18 AM CITY CONTROLLER PROTIME-INR After X-Ray 11/27/2017 1:12 AM CITY CONTROLLER CBC WITHOUT DIFFERENTIAL After X-Ray 018 1:12 AM CITY CONTROLLER PHOSPHORUS After X-Ray 11/27/2017 1:12 AM CITY CONTROLLER MAGNESIUM After X-Ray 11/27/2017 1:12 AM CITY CONTROLLER BASIC METABOLIC PANEL After X-Ray 11/27/2017 1:12 AM CITY CONTROLLER GLUCOSE POC Routine Gen Lab 11/26/2017 8:32 PM CITY CONTROLLER GLUCOSE POC Routine Gen Lab 11/26/2017 6:01 PM CITY CONTROLLER GLUCOSE POC Routine Gen Lab 11/26/2017 12:05 PM CITY CONTROLLER CLOSTRIDIUM DIFFICILE ASSAY RTNm 11/26/2017 10:31 AM CITY CONTROLLER VRE CULTURE, SURVEILLANCE Routine Gen Lab 11/26/2017 10:30 AM CITY CONTROLLER XR CHEST 1 VIEW Routine 11/26/2017 9:37 AM CITY CONTROLLER GLUCOSE POC Routine Gen Lab 11/26/2017 8:00 AM CITY CONTROLLER DIFFERENTIAL AUTO After X-Ray 11/26/2017 4:3 5 AM CITY CONTROLLER CBC WITH AUTO DIFFERENTIAL After X-Ray 11/26/2017 4:35 AM CITY CONTROLLER PROTIME-INR After X-Ray 11/26/2017 4:35 AM CITY CONTROLLER GLUCOSE POC Routine Gen Lab 11/26/2017 4:08 AM CITY CONTROLLER PHOSPHORUS Routine Gen Lab 11/26/2017 3:58 AM CITY CONTROLLER MAGNESIUM Routine Gen Lab 11/26/2017 3:58 AM CITY CONTROLLER LIPASE Routine Gen Lab 11/26/2017 3:58 AM CITY CONTROLLER COMPREHENSIVE METABOLIC PANEL Routine Gen Lab 11/26/2017 3:58 AM CITY CONTROLLER GLUCOSE POC Routine Gen Lab 11/26/2017 12:01 AM CITY CONTROLLER GLUCOSE POC Routine Gen Lab 11/25/2017 8:21 PM CITY CONTROLLER GLUCOSE POC Routine Gen Lab 11/25/2017 4:28 PM CITY CONTROLLER XR CONSULT OF OUTSIDE FILMS (PEDS ONLY) Routine 11/25/2017 3:07 PM CITY CONTROLLER GLUCOSE POC Routine Gen Lab 11/25/2017 12:01 PM CITY CONTROLLER XR CHEST 1 VIEW Routine 11/25/2017 11:26 AM CITY CONTROLLER GLUCOSE POC Routine Gen Lab 11/25/2017 8:52 AM CITY CONTROLLER POCT ARTERIAL BLOOD GAS, CPB Routine Gen Lab 11/25/2017 8:52 AM CITY CONTROLLER GLUCOSE POC Routine Gen Lab 11/25/2017 4:07 AM CITY CONTROLLER DIFFERENTIAL AUTO After X-Ray 11/25/2017 12:17 AM CITY CONTROLLER GLUCOSE POC Routine Gen Lab 11/25/2017 12:17 AM CITY CONTROLLER CBC WITH AUTO DIFFERENTIAL After X-Ray 11/25/2017 12:17 AM CITY CONTROLLER PROTIME-INR After X-Ray 11/25/2017 12:17 AM CITY CONTROLLER PHOSPHORUS After X-Ray 11/25/2017 12:17 AM CITY CONTROLLER MAGNESIUM After X-Ray 11/25/2017 12:17 AM CITY CONTROLLER LIPASE After X-Ray 11/25/2017 12:17 AM CITY CONTROLLER VANCOMYCIN LEVEL TROUGH After X-Ray 11/25/19 18 12:17 AM CITY CONTROLLER COMPREHENSIVE METABOLIC PANEL After X-Ray 11/25/2017 12:17 AM CITY CONTROLLER GLUCOSE POC Routine Gen Lab 11/24/2017 7:37 PM CITY CONTROLLER POCT ARTERIAL BLOOD GAS, CPB Routine Gen Lab 11/24/2017 5:08 PM CITY CONTROLLER GLUCOSE POC Routine Gen Lab 11/24/2017 3:32 PM CITY CONTROLLER GLUCOSE POC Routine Gen Lab 11/24/2017 11:52 AM CITY CONTROLLER XR CHEST 1 VIEW Routine 11/24/2017 11:20 AM CITY CONTROLLER POCT ARTERIAL BLOOD GAS, CPB Routine Gen Lab 11/24/2017 10:07 AM CITY CONTROLLER BASIC METABOLIC PANEL After X-Ray 11/24/2017 7:36 AM CITY CONTROLLER POCT ARTERIAL BLOOD GAS, CPB Routine Gen Lab 11/24/2017 7:32 AM CITY CONTROLLER GLUCOSE POC Routine Gen Lab 11/24/2017 7:24 AM CITY CONTROLLER XR CONSULT OF OUTSIDE FILMS (PEDS ONLY) Routine 11/24/2017 3:23 AM CITY CONTROLLER DIFFERENTIAL AUTO After X-Ray 11/24/2017 2:2 1 AM CITY CONTROLLER CBC WITH AUTO DIFFERENTIAL After X-Ray 11/24/2017 2:21 AM CITY CONTROLLER PROTIME-INR After X-Ray 11/24/2017 2:21 AM CITY CONTROLLER PHOSPHORUS After X-Ray 11/24/2017 2:21 AM CITY CONTROLLER MAGNESIUM After X-Ray 11/24/2017 2:21 AM CITY CONTROLLER LIPASE After X-Ray 11/24/2017 2:21 AM CITY CONTROLLER LIPID PANEL After X-Ray 11/24/2017 2:21 AM CITY CONTROLLER COMPREHENSIVE METABOLIC PANEL After X-Ray 11/24/2017 2:21 AM CITY CONTROLLER POCT ARTERIAL BLOOD GAS, CPB Routine Gen Lab 11/24/2017 2:17 AM CITY CONTROLLER GLUCOSE POC Routine Gen Lab 11/23/2017 11:59 PM CITY CONTROLLER XR CHEST 1 VIEW Routine 11/23/2017 11:01 PM CITY CONTROLLER GLUCOSE POC Routine Gen Lab 11/23/2017 8:12 PM CITY CONTROLLER TACROLIMUS LEVEL, RANDOM STAT 018 7:32 PM CITY CONTROLLER POCT ARTERIAL BLOOD GAS, CPB Routine Gen Lab 11/23/2017 7:28 PM CITY CONTROLLER CMV DNA QN, PCR Routine Gen Lab 11/23/2017 4:42 PM CITY CONTROLLER BETA-HYDROXYBUTYRATE Routine Gen Lab 11/23/2017 4:42 PM CITY CONTROLLER URINALYSIS AND REFLEX TO MICROSCOPIC AND CULTURE Routine Gen Lab 11/23/2017 4:42 PM CITY CONTROLLER HEMOGLOBIN A1C Routine Gen Lab 11/23/2017 4:42 PM CITY CONTROLLER RESPIRATORY PATHOGEN PANEL RTNm 11/23/2017 4:40 PM CITY CONTROLLER INFLUENZA A/B PCR RTNm 11/23/2017 4:4 0 PM CITY CONTROLLER CBC WITH AUTO DIFFERENTIAL STAT 11/23/2017 4:40 PM [facility] [employer] TROPONIN I STAT 11/23/2017 4:40 PM [facility] [employer] MANUAL DIFFERENTIAL STAT 11/23/2017 4 :40 PM [facility] [employer] BLOOD CULTURE RTNm 11/23/2017 4:40 PM [facility] [employer] BLOOD CULTURE RTNm 11/23/2017 4:40 PM [facility] [employer] PROTIME-INR STAT 11/23/2017 4:40 PM [facility] [employer] TYPE AND SCREEN STAT 11/23/2017 4:40 PM [facility] [employer] MOLD BLOOD CULTURE RTNm 11/23/2017 4: 40 PM [employer] INFECTION PREVENTION MRSA ONLY (STAPHYLOCOCCUS AUREUS) CULTURE RTNm 11/23/2017 4:40 PM [facility] [employer] TRIGLYCERIDES STAT 11/23/2017 4:40 PM [facility] [employer] PHOSPHORUS STAT 11/23/2017 4:40 PM [facility] [employer] MAGNESIUM STAT 11/23/2017 4:40 PM [facility] [employer] LIPASE STAT 11/23/2017 4:40 PM [facility] [employer] LACTATE DEHYDROGENASE STAT 11/23/2017 4:40 PM [facility] [employer] AMYLASE STAT 11/23/2017 4:40 PM [employer] COMPREHENSIVE METABOLIC PANEL STAT 11/23/2017 4:40 PM [facility] [employer] POCT ARTERIAL BLOOD GAS, CPB Routine Gen Lab 11/23/2017 4:15 PM [facility] [employer] ELECTROCARDIOGRAPHY (ECG) 11/23/2017 ELECTROCARDIOGRAPHY (ECG) 11/23/2017 TRANSTHORACIC ECHO (TTE) COMPLETE W DOPPLER/CF WO CONTRAST 11/23/2017 documented in this encounter Results * Glucose POC (12/13/2017 1:56 PM [facility]ER) [facility] Glucose, POC 173 70 - 199 mg/dL [facility] Blood specimen (specimen) 12/13/2017 1:56 PM [employer]ER 12/13/2017 1:56 PM [facility] [employer] Narrative [facility] - 12/13/2017 2:12 PM [employer]ER us Francis Park MD PhD POINT OF CARE TEST ORDER SUBHA Final Result [facility] Department [place] [address] * Glucose POC (12/13/2017 9:24 AM [facility] CONTROLLER) [facility] Glucose, POC 157 70 - 199 mg/dL [facility] Blood specimen (specimen) 12/13/2017 9:24 AM [facility] [employer]ER 12/13/2017 9:24 AM [facility] [employer]ER Narrative [facility] - 12/13/2017 9:43 AM [employer]ER us Francis Park MD PhD POINT OF CARE TEST ORDER SUBHA Final Result Performing Organization Address [facility] Co de Phone Number [facility] Department [place] [address] * (ABNORMAL) Hepatic function panel (12/13/2017 3:18 AM [facility] CONTROLLER) [facility] AST 46 10 - 50 Units/L [facility] Comment:Hemolyzed; result ma y be falsely elevated. ALT 37 7 - 55 Units/L [facility] Alk phos 625(H) 40 - 130 Units/L [facility] Bilirubin, total 0.3 0.1 - 1.2 mg/dL [facility] Bilirubin, direct <0.2 0.1 - 0.3 mg/dL [facility] Protein, pl 8.1 6.5 - 8.5 g/dL [facility] Albumin 2.7(L) 3.5 - 5.0 g/dL [facility] Blood specimen (specimen) 12/13/2017 3:18 AM CITY CONTROLLER 12/13/2017 5:19 AM CITY CONTROLLER Narrative [facility] - 12/13/2017 9:04 AM CITY CONTROLLER us Michael Perrin MD LAB BLOOD ORDERABLES Final Result Performing Organization Address City/[facility]/ZIP Co de Phone Number [facility] Department [place] [address] * Tacrolimus level trough (12/13/2017 3:18 AM CITY CONTROLLER) [facility] Tacrolimus, trough 2.9 ng/mL [facility] Comment: Interpretive Data The therapeutic range for tacrolimus can vary by transplant organ type and sample timing but a trough range of 5 - 15 ng/mL is typical. Testing performed by liquid chromatography-tandem mass spectrometry (LC- MS/MS).This test was developed using an analyte specific reagent. Its performance characteristics were determined by the [facility] in a manner consistent with CLIA requirements. This test has not been cleared or approved by the U.S. Food and Drug Administration. Current interpretive data was last revised on 2016. Blood specimen (specimen) 12/13/2017 3:18 AM CITY CONTROLLER 12/13/2017 5:19 AM CITY CONTROLLER Narrative [facility] - 12/13/2017 7:01 AM CITY CONTROLLER us Sharon Eid MD LAB BLOOD ORDERABLES Final R esult [facility] One [facility] Department [place] [address] * (ABNORMAL) Morphology exam (12/13/2017 3:18 AM CITY CONTROLLER) Neutrophils 27.8 % [facility] Lymphocytes 59.2 % [facility] Monos 5.2 % [facility] Eosinophils 7.8 % [facility] Platelet estimate Adequate [facility] Anisocytosis 2+(A) [facility] Macrocytes 8-15/HPF(A) [facility] WBC counted 115 Cells [facility] RBC morphology Present(A) [facility] Neutrophil abs 1.73 1.70 - 6.50 K/cumm [facility] Lymphs, abs 3.69(H) 0.80 - 3.30 K/cumm [facility] Monos, abs 0.32 0.20 - 0.80 K/cumm [facility] Eosinophils, abs 0.49 0.00 - 0.50 K/cumm [facility] Immature granulocyte, abs 0.00 0.00 - 0.10 K/cumm [facility] Blood specimen (specimen) 12/13/2017 3:18 AM CITY CONTROLLER 12/13/2017 5:08 AM CITY CONTROLLER Narrative [facility] - 12/13/2017 6:18 AM CITY CONTROLLER us Michael Perrin MD LAB BLOOD ORDERABLES Final Result [facility] Department [place] [address] * (ABNORMAL) Basic metabolic panel (12/13/2017 3:18 AM CITY CONTROLLER) Sodium 134(L) 135 - 145 mmol/L [facility] Potassium, pl 5.1(H) 3.3 - 4.9 mmol/L [facility] Comment:Hemolyzed; (++); pot assium value may be falsely elevated by as much as 0.3 - 0.5 mmol/L. Suggest redraw and reanalysis. Chloride 98 97 - 110 mmol/L [facility] CO2 30 22 - 32 mmol/L [facility] BUN 10 8 - 25 mg/dL [facility] Glucose 116 70 - 199 mg/dL [facility] Comment: Interpretive Data Fasting glucose >/= [...] interpretive data was last revised 2017. Creatinine 0.65(L) 0.80 - 1.30 mg/dL [facility] Calcium 9.1 8.5 - 10.3 mg/dL [facility] Anion gap 6 2 - 15 mmol/L [facility] Blood specimen (specimen) 12/13/2017 3:18 AM CITY CONTROLLER 12/13/2017 5:19 AM CITY CONTROLLER Narrative [facility] - 12/13/2017 5:53 AM CITY CONTROLLER us Michael Perrin MD LAB BLOOD ORDERABLES Final Result Performing Organization Address City/[facility] Co de Phone Number [facility] [place] [address] * Magnesium (12/13/2017 3:18 AM CITY CONTROLLER) [facility] Magnesium 1.6 1.4 - 2.5 mg/dL [facility] Blood specimen (specimen) 12/13/2017 3:18 AM CITY CONTROLLER 12/13/2017 5:19 AM CITY CONTROLLER Narrative [facility] - 12/13/2017 5:53 AM CITY CONTROLLER Michael Perrin MD LAB BLOOD ORDERABLES Final Result Performing Organization Address [facility] [place] [address] * Phosphorus (12/13/2017 3:18 AM CITY CONTROLLER) [facility] Phosphorus, pl 3.3 2.3 - 4.5 mg/dL [facility] Blood specimen (specimen) 12/13/2017 3:18 AM CITY CONTROLLER 12/13/2017 5:19 AM CITY CONTROLLER Narrative [facility] - 12/13/2017 5:53 AM CITY CONTROLLER Michael Perrin MD LAB BLOOD ORDERABLES Final Result Performing Organization Address City/[facility] Co de Phone Number [facility] [place] [address] * (ABNORMAL) CBC without differential (12/13/2017 3:18 AM CITY CONTROLLER) [facility] WBC 6.24 3.80 - 9.90 K/cumm [facility] RBC 3.15(L) 4.30 - 5.80 M/cumm [facility] Hgb 10.5(L) 13.0 - 17.5 g/dL [facility] Hct 31.2(L) 38.9 - 50.3 % [facility] MCV 99.0(H) 81.3 - 96.4 fL [facility] MCH 33.3 27.1 - 33.3 pg [facility] MCHC 33.7 32.3 - 35.7 g/dL [facility] RDW CV 14.6 11.1 - 14.9 % [facility] RDW SD 52.7(H) 35.7 - 48.1 fL [facility] NRBC 0.0 0.0 - 0.2 % [facility] NRBC abs 0.00 0.00 - 0.01 K/cumm [facility] Plt 328 150 - 400 K/cumm [facility] MPV 10.9 9.1 - 12.3 fL [facility] Blood specimen (specimen) 12/13/2017 3:18 AM CITY CONTROLLER 12/13/2017 5:08 AM CITY CONTROLLER Narrative [facility] - 12/13/2017 5:15 AM CITY CONTROLLER us Michael Perrin MD LAB BLOOD ORDERABLES Final Result [facility] Daniela [facility] Department [place] [address] * DISCHARGE LABORATORY CUMULATIVE REPORT (12/13/2017 12:00 AM CITY CONTROLLER) Narrative 12/13/2017 12:00 AM CITY CONTROLLER Ordered by an unspecified provider. us Historical Provider LAB BLOOD ORDERABLES Pilar l Result * Glucose POC (12/12/2017 8:36 PM CITY CONTROLLER) Glucose, POC 155 70 - 199 mg/dL [facility] Blood specimen (specimen) 12/12/2017 8:36 PM CITY CONTROLLER 12/12/2017 8:36 PM CITY CONTROLLER Narrative [facility] - 12/12/2017 8:51 PM CITY CONTROLLER us Francis Park MD PhD POINT OF CARE TEST ORDER SUBHA Final Result [facility] Daniela [facility] Department [place] [address] * XR Chest 1 Vw (12/12/2017 6:00 PM CITY CONTROLLER) Anatomical Region Laterality Modality Body, Chest N/A Radiographic Tiffany ging 12/12/2017 6:00 PM CITY CONTROLLER Narrative 12/12/2017 6:45 PM CITY CONTROLLER BHAVIN OCHOA M.D. FINAL REPORT ACC# ??Date Time ??Exam [id number] Dec 12, 2017 12:00:00 10015 Chest 1 view Frontal EXAMINATION: ??1 view chest radiograph IMPRESSION: ??Comparison 12/05/2017. Interval decrease in the now small right pleural effusion seen, following thoracentesis. Tiny left basilar pleural effusion also has improved. No pneumothorax seen. Mild right basilar atelectasis noted, improved. Heart size and mediastinal contour remain within normal limits. The left peripherally inserted central venous catheter has been removed. Electronically signed by: Bhavin Ochoa M.D. Requested By: SOURAV CALLEJAS ??Toño ? Dictated By: ?? BHAVIN OCHOA M.D. ??on Dec 12 2017 12:43P This document has been electronically signed by: BHAVIN OCHOA M.D. on Dec 12 2017 12:43P BHAVIN OCHOA M.D. FINAL REPORT Attending: ??MARCELINA, ??SOURAV Requesting: ??MARCELINA, ??SOURAV Requesting Fax: ?? Attending Fax: ?? Attending ID: ??[id number] Requesting ID: ??[id number] Report To 1 ID: ??[id number] ? Report To 1 Name: ??, ?? Report To 1 FAX: ?? NextGen Order #: ?? Procedure Note Miscellaneous, Not In File - 12/12/2017 BHAVIN OCHOA M.D. FINAL REPORT ACC# Date Time Exam [id number] Dec 12, 2017 12:00:00 38710 Chest 1 view Frontal EXAMINATION: 1 view chest radiograph IMPRESSION: Comparison 12/05/2017. Interval decrease in the now small right pleural effusion seen, following thoracentesis. Tiny left basilar pleural effusion also has improved. No pneumothorax seen. Mild right basilar atelectasis noted, improved. Heart size and mediastinal contour remain within normal limits. The left peripherally inserted central venous catheter has been removed. Electronically signed by: Bhavin Ochoa M.D. Requested By: SOURAV CALLEJAS M.D. Dictated By: BHAVIN OCHOA M.D. on Dec 12 2017 12:43P This document has been electronically signed by: BHAVIN OCHOA M.D. on Dec 12 2017 12:43P BHAVIN OCHOA M.D. FINAL REPORT Attending: SOURAV CALLEJAS Requesting: SOURAV CALLEJAS Requesting Fax: Attending Fax: Attending ID: [id number] Requesting ID: [id number] Report To 1 ID: [id number] Report To 1 Name: , Report To 1 FAX: NextGen Order #: us Sourav Callejas MD IMG XR PROCEDURES Final Result * US Guided Thoracentesis (12/12/2017 5:43 PM CITY CONTROLLER) Anatomical Region Laterality Modality Chest N/A Ultrasound 12/12/2017 5:43 PM CITY CONTROLLER Narrative 12/12/2017 6:09 PM CITY CONTROLLER GATITO CARBALLO M.D. 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 COMPARISON: ??Correlation to chest CT dated 12/09/2017 FINDINGS: ??Limited views of the posterior right chest show a moderate amount of pleural fluid. The ??right chest was marked appropriately with ultrasound guidance. TECHNIQUE: ??The procedure and its benefits and risks were explained to the patient. The potential risks included but were not limited to pneumothorax, bleeding, infection, and injury to adjacent organs. A site was localized for thoracentesis. The patient's overlying skin was prepped and draped in the usual sterile fashion. Local anesthesia was achieved via subcutaneous and deep administration with 10 mL of Lidocaine 1%. 5-Uzbek one-step gauge needle was advanced into the pleural cavity. Appropriate needle location was documented with continuous sonographic guidance. 650 mL of serosanguineous fluid were obtained. The patient's skin was cleaned and dressed. ??The patient tolerated the procedure well and was discharged in stable condition. The chest radiograph obtained immediately following the procedure showed no pneumothorax. Dr. Gatito Carballo M.D., the attending radiologist, was present from the beginning to the end of the procedure and performed the procedure. IMPRESSION: ??1. Successful ultrasound-guided diagnostic and therapeutic right thoracentesis. Electronically signed by: Gatito Carballo M.D. Requested By: ALAN KUMAR M.D. Dictated By: ?? GATITO CARBALLO M.D. ??on Dec 12 2017 12:07P This document has been electronically signed by: GATITO CARBALLO M.D. on Dec 12 2017 12:07P [id number] CARBALLO M.D. FINAL REPORT Attending: ??MARCELINA, ??SOURAV Requesting: ??DAMON HURTADO, ??ALAN Requesting Fax: ?? Attending Fax: ?? Attending ID: ??[id number] Requesting ID: ??[id number] Report To 1 ID: ??[id number] ? Report To 1 Name: ??, ?? Report To 1 FAX: ?? NextGen Order #: ?? Procedure Note Miscellaneous, Not In File - 12/12/2017 GATITO CARBALLO M.D. 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 COMPARISON: Correlation to chest CT dated 12/09/2017 FINDINGS: Limited views of the posterior right chest show a moderate amount of pleural fluid. The right chest was marked appropriately with ultrasound guidance. TECHNIQUE: The procedure and its benefits and risks were explained to the patient. The potential risks included but were not limited to pneumothorax, bleeding, infection, and injury to adjacent organs. A site was localized for thoracentesis. The patient's overlying skin was prepped and draped in the usual sterile fashion. Local anesthesia was achieved via subcutaneous and deep administration with 10 mL of Lidocaine 1%. 5-Uzbek one-step gauge needle was advanced into the pleural cavity. Appropriate needle location was documented with continuous sonographic guidance. 650 mL of serosanguineous fluid were obtained. The patient's skin was cleaned and dressed. The patient tolerated the procedure well and was discharged in stable condition. The chest radiograph obtained immediately following the procedure showed no pneumothorax. Dr. Gatito Carballo M.D., the attending radiologist, was present from the beginning to the end of the procedure and performed the procedure. IMPRESSION: 1. Successful ultrasound-guided diagnostic and therapeutic right thoracentesis. Electronically signed by: Gatito Carballo M.D. Requested By: ALAN KUMAR M.D. Dictated By: GATITO CARBALLO M.D. on Dec 12 2017 12:07P This document has been electronically signed by: GATITO CARBALLO M.D. on Dec 12 2017 12:07P [id number] CARBALLO M.D. FINAL REPORT Attending: SOURAV CALLEJAS Requesting: ALAN KUMAR Requesting Fax: Attending Fax: Attending ID: [id number] Requesting ID: [id number] Report To 1 ID: [id number] Report To 1 Name: , Report To 1 FAX: NextGen Order #: us Alan Hurtado MD [facility] US PROCEDURES Final Result * (ABNORMAL) Glucose POC (12/12/2017 4:14 PM CITY CONTROLLER) Glucose, POC 211(H) 70 - 199 mg/dL [facility] Blood specimen (specimen) 12/12/2017 4:14 PM CITY CONTROLLER 12/12/2017 4:14 PM CITY CONTROLLER Narrative [facility] - 12/12/2017 5:53 PM CITY CONTROLLER us Francis Park MD PhD POINT OF CARE TEST ORDER SUBHA Final Result [facility] One [facility] Department [place] [address] * Cytology (12/12/2017 12:15 PM CITY CONTROLLER) 12/12/2017 12:1 5 PM CITY CONTROLLER 12/12/2017 1:14 PM CITY CONTROLLER Narrative 12/13/2017 2:59 PM CITY CONTROLLER [facility] Johnathon Jaram[facility] [place] [address] CYTOPATHOLOGY REPORT FINAL Patient Name: BRI JONES Address: [address] Service: [employer] Bird[employer] ??SARAH SMITH ??[id number] Location: [facility] 6900 Taken: 12/12/2017 Gender: ??M Received: 12/12/2017 : 1965 (Age: 52) Hospital #: [id number] Accessioned: 12/12/2017 ?? Patient Type: [facility] Inpatient Reported: 12/13/2017 Physician(s): ??Justine Parker M.D. Gatito Carballo M.D. Alan Hurtado M.D. ? FINAL DIAGNOSIS A. ??Pleural fluid, right: ? - Negative for malignancy ? Comments The cell block confirms the diagnosis. hxz/12/13/2017 12:15 By this signature, I attest that the above diagnosis is based upon my personal examination of the slides(and/or other material indicated in the diagnosis). ?? Colin Harley M.D. Shara Elaine, [place], CT(ASC)[facility] Report Electronically Reviewed and Signed Out By ??Colin Harley M.D. 12/13/2017 14:59:17 Gross Description A. ??Pleural fluid, right: ??60 ml of bloody fluid -1 Pap stained ThinPrep, 1 Pap stained cytospin, 1 Diff-Quik stained cytospin, and cell block. ??(pc) ?? Clinical Diagnosis and History AML ?By this signature, I attest that the above diagnosis is based upon my personal examination of the slides(and/or other material). ? This Cytology report is available electronically in Clinical Desktop. The performance characteristics of some immunohistochemical stains, in-situ hybridization and fluorescence in-situ hybridization tests and immunophenotyping by flow cytometry cited in this report (if any) were determined by the Surgical Pathology Department at [facility] as part of an ongoing manager quality compliance program and in compliance with federally mandated [...] following disclaimer be attached to the report: ? This test was developed and its performance characteristics determined by the Surgical Pathology Department of [facility]. ??It has not been cleared or approved by the U. S. Food and Drug Administration. us Justine Parker LAB CYTOLOGY ORDERABLES Fin al Result * Fluid reference range (12/12/2017 12:15 PM CITY CONTROLLER) Reference range disclaimer [facility] has no established reference ranges for this fluid type. [facility] Body fluid 12/12/2017 12:1 5 PM CITY CONTROLLER 12/12/2017 12:47 PM CITY CONTROLLER Narrative [facility] - 12/12/2017 1:38 PM CITY CONTROLLER Alan Hurtado MD LAB BODY FLUIDS A ND STOOLS ORDERABLES Final Result [facility] One [facility] Department [place] [address] * Cell count and differential, body fluid (12/12/2017 12:15 PM CITY CONTROLLER) Specimen type, fld Pleural Fluid [facility] Body site, fld Pleural fluid [facility] Color, fld [place] [facility] Clarity, fld Slightly Cloudy Clear [facility] RBC, fld 8,109 cells/mcL [facility] Nucleated cells, fld 875 cells/mcL [facility] WBC counted 100 Cells [facility] Neutrophils, fld 3 % [facility] Lymphs, fld 80 % [facility] Brown/macrophage fld 16 % [facility] Mesothelial cells, fld 1 % [facility] Body fluid 12/12/2017 12:1 5 PM CITY CONTROLLER 12/12/2017 12:47 PM CITY CONTROLLER Narrative [facility] - 12/12/2017 1:38 PM CITY CONTROLLER Alan Hurtado MD LAB BODY FLUIDS A ND STOOLS ORDERABLES Final Result [facility] One [facility] Department [place] [address] * Lactate dehydrogenase, body fluid (12/12/2017 12:15 PM CITY CONTROLLER) Specimen type, fld Pleural [facility] LD, fld 162 Units/L [facility] Comment: Interpretive Data Ratio of fluid to serum LD > or = 0.6 is indicative of exudate and < 0.6 of transudate. References: Cristobal Franco et al. The Biochemistry of Body Fluids. ??Association of Clinical Biochemists in [place]. 35. ??August 2009. Daniel Moreno Textbook of clinical Chemistry and Molecular Diagnositics. ??Elsevier Sixth Edition 2017. Body Fluids Abstract p.925 Current Interpretive Data was last revised 2017. Body fluid 12/12/2017 12:1 5 PM CITY CONTROLLER 12/12/2017 12:41 PM CITY CONTROLLER Narrative [facility] - 12/12/2017 1:14 PM CITY CONTROLLER us Alan Hurtado MD LAB BODY FLUIDS A ND STOOLS ORDERABLES Final Result Performing Organization Address [facility] Co de Phone Number [facility] Department [place] [address] * Glucose, Body Fluid W/Prompts (12/12/2017 12:15 PM CITY CONTROLLER) Specimen type, fld Pleural [facility] Glucose, fld 131 mg/dL [facility] Comment: Interpretive Data Pleural - Glucose < 60 mg/dL is indicative of complicated parapneumonic effusions. Ascites - normally equivalent to plasma glucose. ??Will be less than concurrent plasma value in peritoneal bacterial infections. Pericardial - Fluid to serum glucose ratio < 0.3 is indicative of bacterial infection. References: Daniel Moreno Textbook of clinical Chemistry and Molecular Diagnositics. ??Elsevier Sixth Edition 2017. ??Body Fluids Abstract p.925 Tomy Beaulieu, [facility] Journal of Medicine. ??Pleural effusions: Evaluation and Management. August 2005. Volume 72, Number 10. [employer] Test directory, Body Fluid Reference Intervals and/or Interpretative Information. ?? https://MeMeMe/bodyfluids. Current Interpretive Data was last revised 2017. Body fluid 12/12/2017 12:1 5 PM CITY CONTROLLER 12/12/2017 12:41 PM CITY CONTROLLER Narrative [facility] - 12/12/2017 1:14 PM CITY CONTROLLER us Alan Hurtado MD LAB BLOOD ORDERAB LES Final Result Performing Organization Address [facility]/ZIP Co de Phone Number [facility] Department [place] [address] * Protein, body fluid (12/12/2017 12:15 PM CITY CONTROLLER) Specimen type, fld Pleural [facility] Protein, fld 5.4 g/dL [facility] Comment: Interpretive Data Pleural and Pericardial Fluids - Ratio of fluid to serum protein > or = 0.5 is indicative of exudate and < 0.5 of transudate. ?? Ascites - Protein > or = 3.0 g/dL is indicative of exudates and < 3.0 g/dL of transudates. Reference: Daniel Moreno Textbook of clinical Chemistry and Molecular Diagnositics. ??Elsevier Sixth Edition 2017. ??Body Fluids Abstract p.925 Current Interpretive Data was last revised on 2017 Body fluid 12/12/2017 12:1 5 PM CITY CONTROLLER 12/12/2017 12:41 PM CITY CONTROLLER Narrative [facility] - 12/12/2017 1:06 PM CITY CONTROLLER us Alan Hurtado MD LAB BODY FLUIDS A ND STOOLS ORDERABLES Final Result Performing Organization Address City/State/[facility] Co de Phone Number [facility] One [facility] Department [place] [address] * pH, body fluid (12/12/2017 12:15 PM CITY CONTROLLER) Fluid type Pleural [facility] pH, fld 7.33 [facility] Comment: Pleural fluid pH is normally approximately 7.64. pH <7.2 is indicative of complicated parapneumonic effusions. References: Daniel Moreno Textbook of Clinical Chemistry and Molecular Diagnositics. Elsevier Sixth Edition 2017. Body Fluids Abstract p. 925 Tomy Beaulieu, [facility] Journal of Medicine. Pleural effusions: Evaluation and Management. August 2005. Volume 72, Number 10. Body fluid 12/12/2017 12:1 5 PM CITY CONTROLLER 12/12/2017 12:49 PM CITY CONTROLLER Narrative [facility] - 12/12/2017 1:44 PM CITY CONTROLLER us Francis Park MD PhD LAB BODY FLUIDS AND STOO LS ORDERABLES Final Result Performing Organization Address City/[facility] de Phone Number [facility] One [facility] [place] [address] * Body fluid aerobic and anaerobic culture and gram stain (12/12/2017 12:14 PM CITY CONTROLLER) Direct Specimen Exam Stain: Cytospin gram stain shows: Moderate polymorphonuclear leukocytes seen. Abundant Other cellular material present. No organisms seen. [facility] Report Final Report: No growth [facility] Thoracentesis fluid 12/12/19 18 12:14 PM CITY CONTROLLER 12/12/2017 12:43 PM CITY CONTROLLER Narrative [facility] - 12/13/2017 7:53 AM CITY CONTROLLER Specimens submitted from normally sterile body sites will have all bacterial morphotypes identified. ??Specimens that contain grossly mixed lalito and/or are from body sites that are not normally sterile will be examined for Staphylococcus aureus, Pseudomonas aeruginosa, beta-hemolytic strep, vancomycin-resistant Enterococcus, Bacteroides fragilis, Clostridium perfringens and fungus. ??If any of these are isolated, the organism will be reported. Current interpretive data was last revised on 2013. Francis Park MD PhD LAB MICROBIOLOGY - [facility] ORDERABLES Final Result Performing Organization Address [facility] de Phone Number [facility] Department [place] [address] * Surgical pathology (12/12/2017 11:19 AM CITY CONTROLLER) 12/12/2017 11:1 9 AM CITY CONTROLLER 12/12/2017 1:07 PM CITY CONTROLLER Narrative 12/13/2017 4:00 PM CITY CONTROLLER [facility] Johnathon Jaramillo [facility] [place] [address] SURGICAL PATHOLOGY REPORT FINAL Patient Name: BRI JONES ? Address: [address] [place] [address] ??Service: ??Internal Medicine ??[place] ??[id number] ??Location: ??[facility] 6900 Taken: 12/12/2017 Gender: M ?? Received: 12/12/2017 : 1965 (Age: 52) ??Hospital #: ??[id number] Accessioned: 12/12/2017 ?Patient Type: ??[facility] Inpatient Reported: 12/13/2017 ? Physician(s): Alan Hurtado M.D. ? Diagnosis: Pleural fluid for flow cytometry, thoracentesis ? - Polymorphic inflammatory cell infiltrate ? - No increase in blasts ? - No significant blast population identified by flow cytometry ? -See comment ham/12/13/2017 12:41 By this signature, I attest that the above diagnosis is based upon my personal examination of the slides(and/or other material indicated in the diagnosis). ?? Demian Gudino M.D. ??Report Electronically Reviewed and Signed Out By ??Demian Gudino M.D. 12/13/2017 16:00:39 Microscopic Description and Comment: The cytospin shows a polymorphous lymphocyte population including mature lymphocytes, abundant macrophages, and few eosinophils. No atypical cells are identified. Flow cytometric analysis shows a blast gate less than one percent of gated events. A monocyte gate shows 14% of gated events to be consistent with mature monocytes. A lymphocyte gate shows 63% of cells to be consistent with lymphocytes. ? History: The patient is a 56 year old man with a history of AML s/p SCT in 2008 now with pneumonia and pleural effusion. Operative procedure: Thoracentesis. Specimen(s) Received: A: Fluid for flow cytometry, right chest pleural fluid Gross Description: { Not Entered } ?Roderick White M.D. ? By this signature, I attest that the above diagnosis is based upon my personal examination of the slides(and/or other material). ?? Surgical Pathology report is available electronically in Clinical Desktop. The performance characteristics of some immunohistochemical stains, fluorescence in-situ hybridization tests and immunophenotyping by flow cytometry cited in this report (if any) were determined by the Surgical Pathology Department at [facility] as part of an ongoing manager quality compliance program and in compliance with federally mandated [...] performance characteristics determined by the Surgical Pathology Department of [facility]. ??It has not been cleared or approved by the U. S. Food and Drug Administration. Alan Hurtado MD LAB PATHOLOGY ORD ERABLES Final Result * Leukemia/lymphoma studies (12/12/2017 11:19 AM CITY CONTROLLER) Metamyelocyte , Bone Marrow Test Completed [facility] CD 14 Test Completed [facility] CD 33 Test Completed [facility] CD 34 Test Completed [facility] CD 45 Test Completed [facility] CD 64 Test Completed [facility] CD 117 Test Completed [facility] CD 123 Test Completed [facility] Red Stain Test Completed [facility] Leukemia/Lymp gita Result See separate Surgical Pathology report. [facility] Body fluid 12/12/2017 11:1 9 AM CITY CONTROLLER 12/12/2017 1:07 PM CITY CONTROLLER Narrative [facility] - 12/12/2017 7:50 PM CITY CONTROLLER Francis Park MD PhD LAB BLOOD ORDERABLES Fin al Result Performing Organization Address [facility] Co de Phone Number [facility] [place] [address] * Glucose POC (12/12/2017 8:50 AM CITY CONTROLLER) Glucose, POC 103 70 - 199 mg/dL [facility] Blood specimen (specimen) 12/12/2017 8:50 AM CITY CONTROLLER 12/12/2017 8:50 AM CITY CONTROLLER Narrative [facility] - 12/12/2017 9:03 AM CITY CONTROLLER Francis Park MD PhD POINT OF CARE TEST ORDER SUBHA Final Result Performing Organization Address [facility] de Phone Number [facility] [place] [address] * Type and screen (12/12/2017 3:40 AM CITY CONTROLLER) Ursula, indirect Negative [facility] ABO Rh A Positive [facility] Blood specimen (specimen) 12/12/2017 3:40 AM CITY CONTROLLER 12/12/2017 4:44 AM CITY CONTROLLER Narrative [facility] - 12/12/2017 9:20 AM CITY CONTROLLER us Michael Perrin MD LAB BLOOD BANK TEST ORDERAB LES Final Result Performing Organization Address [facility] de Phone Number [facility] [place] [address] * Tacrolimus level trough (12/12/2017 3:40 AM CITY CONTROLLER) Tacrolimus, trough 3.4 ng/mL [facility] Comment: Interpretive Data The therapeutic range for tacrolimus can vary by transplant organ type and sample timing but a trough range of 5 - 15 ng/mL is typical. Testing performed by liquid chromatography-tandem mass spectrometry (LC- MS/MS).This test was developed using an analyte specific reagent. Its performance characteristics were determined by the [facility] Laboratory in a manner consistent with CLIA requirements. This test has not been cleared or approved by the U.S. Food and Drug Administration. Current interpretive data was last revised on 2016. Blood specimen (specimen) 12/12/2017 3:40 AM CITY CONTROLLER 12/12/2017 4:50 AM CITY CONTROLLER Narrative [facility] - 12/12/2017 8:22 AM CITY CONTROLLER us Sharon Eid MD LAB BLOOD ORDERABLES Final R esult [facility] Department [place] [address] * (ABNORMAL) Morphology exam (12/12/2017 3:40 AM CITY CONTROLLER) Neutrophils 16.5 % [facility] Lymphocytes 62.6 % [facility] Monos 10.4 % [facility] Eosinophils 9.6 % [facility] Basophil pct 0.9 % [facility] Platelet estimate Adequate [facility] Anisocytosis 3+(A) [facility] Macrocytes > 15/HPF(A) [facility] WBC counted 115 Cells [facility] RBC morphology Present(A) [facility] Neutrophil abs 0.87(L) 1.70 - 6.50 K/cumm [facility] Lymphs, abs 3.29 0.80 - 3.30 K/cumm [facility] Monos, abs 0.55 0.20 - 0.80 K/cumm [facility] Eosinophils, abs 0.50 0.00 - 0.50 K/cumm [facility] Basophils, abs 0.05 0.00 - 0.10 K/cumm [facility] Immature granulocyte, abs 0.00 0.00 - 0.10 K/cumm [facility] BJ Blood specimen (specimen) 12/12/2017 3:40 AM CITY CONTROLLER 12/12/2017 4:43 AM CITY CONTROLLER Narrative [facility] - 12/12/2017 5:47 AM CITY CONTROLLER us Michael Perrin MD LAB BLOOD ORDERABLES Final Result [facility] Department [place] [address] * (ABNORMAL) Comprehensive metabolic panel (12/12/2017 3:40 AM CITY CONTROLLER) Sodium 132(L) 135 - 145 mmol/L [facility] Potassium, pl 4.7 3.3 - 4.9 mmol/L [facility] CO2 28 22 - 32 mmol/L [facility] BUN 10 8 - 25 mg/dL [facility] Glucose 113 70 - 199 mg/dL [facility] Comment: Interpretive Data Fasting glucose >/= [...] interpretive data was last revised 2017. Creatinine 0.65(L) 0.80 - 1.30 mg/dL [facility] Calcium 8.4(L) 8.5 - 10.3 mg/dL [facility] Chloride 101 97 - 110 mmol/L [facility] Albumin 2.3(L) 3.5 - 5.0 g/dL [facility] AST 47 10 - 50 Units/L [facility] ALT 38 7 - 55 Units/L [facility] Alk phos 640(H) 40 - 130 Units/L [facility] Bilirubin, total 0.3 0.1 - 1.2 mg/dL [facility] Protein, pl 7.4 6.5 - 8.5 g/dL [facility] Anion gap 3 2 - 15 mmol/L [facility] Blood specimen (specimen) 12/12/2017 3:40 AM CITY CONTROLLER 12/12/2017 4:51 AM CITY CONTROLLER Narrative [facility] - 12/12/2017 5:17 AM CITY CONTROLLER Michael Perrin MD LAB BLOOD ORDERABLES Final Result Performing Organization Address [facility]/ZIP Co de Phone Number [facility] [place] [address] * Magnesium (12/12/2017 3:40 AM CITY CONTROLLER) Magnesium 1.8 1.4 - 2.5 mg/dL [facility] Blood specimen (specimen) 12/12/2017 3:40 AM CITY CONTROLLER 12/12/2017 4:51 AM CITY CONTROLLER Narrative [facility] - 12/12/2017 5:17 AM CITY CONTROLLER Michael Perrin MD LAB BLOOD ORDERABLES Final Result Performing Organization Address [facility] Co de Phone Number [facility] [place] [address] * Phosphorus (12/12/2017 3:40 AM CITY CONTROLLER) Phosphorus, pl 3.0 2.3 - 4.5 mg/dL [facility] Blood specimen (specimen) 12/12/2017 3:40 AM CITY CONTROLLER 12/12/2017 4:51 AM CITY CONTROLLER Narrative [facility] - 12/12/2017 5:17 AM CITY CONTROLLER Michael Perrin MD LAB BLOOD ORDERABLES Final Result Performing Organization Address [facility] [place] [address] * Lactate dehydrogenase (LD) (12/12/2017 3:40 AM CITY CONTROLLER) Lactate dehydrogenase (LDH) 165 100 - 250 Units/L [facility] Blood specimen (specimen) 12/12/2017 3:40 AM CITY CONTROLLER 12/12/2017 4:51 AM CITY CONTROLLER Narrative [facility] - 12/12/2017 5:17 AM CITY CONTROLLER us Michael Perrin MD LAB BLOOD ORDERABLES Final Result [facility] Department [place] [address] * (ABNORMAL) CBC without differential (12/12/2017 3:40 AM CITY CONTROLLER) [facility] WBC 5.26 3.80 - 9.90 K/cumm [facility] RBC 2.98(L) 4.30 - 5.80 M/cumm [facility] Hgb 10.1(L) 13.0 - 17.5 g/dL [facility] Hct 29.8(L) 38.9 - 50.3 % [facility] MCV 100.0(H) 81.3 - 96.4 fL [facility] MCH 33.9(H) 27.1 - 33.3 pg [facility] MCHC 33.9 32.3 - 35.7 g/dL [facility] RDW CV 14.6 11.1 - 14.9 % [facility] RDW SD 54.0(H) 35.7 - 48.1 fL [facility] NRBC 0.0 0.0 - 0.2 % [facility] NRBC abs 0.00 0.00 - 0.01 K/cumm [facility] Plt 273 150 - 400 K/cumm [facility] MPV 10.9 9.1 - 12.3 fL [facility] Blood specimen (specimen) 12/12/2017 3:40 AM CITY CONTROLLER 12/12/2017 4:43 AM CITY CONTROLLER Narrative [facility] - 12/12/2017 4:53 AM CITY CONTROLLER us Michael Perrin MD LAB BLOOD ORDERABLES Final Result [facility] Department [place] [address] * SURGICAL PATHOLOGY (12/12/2017 12:00 AM CITY CONTROLLER) Narrative 12/12/2017 12:00 AM CITY CONTROLLER Ordered by an unspecified provider. Historical Provider MD LAB PATHOLOGY ORDERABLES Final Result * CYTOLOGY (12/12/2017 12:00 AM CITY CONTROLLER) Narrative 12/12/2017 12:00 AM CITY CONTROLLER Ordered by an unspecified provider. Historical Provider MD LAB CYTOLOGY ORDERABLES F inal Result * Glucose POC (12/11/2017 9:35 PM CITY CONTROLLER) Glucose, POC 155 70 - 199 mg/dL [facility] Blood specimen (specimen) 12/11/2017 9:35 PM CITY CONTROLLER 12/11/2017 9:35 PM CITY CONTROLLER Narrative [facility] - 12/12/2017 5:52 PM CITY CONTROLLER Francis Park MD PhD POINT OF CARE TEST ORDER SUBHA Final Result [facility] Department [place] [address] * (ABNORMAL) Glucose POC (12/11/2017 5:54 PM CITY CONTROLLER) Glucose, POC 223(H) 70 - 199 mg/dL [facility] Blood specimen (specimen) 12/11/2017 5:54 PM CITY CONTROLLER 12/11/2017 5:54 PM CITY CONTROLLER Narrative [facility] - 12/11/2017 6:33 PM CITY CONTROLLER Francis Park MD PhD POINT OF CARE TEST ORDER SUBHA Final Result [facility] Department [place] [address] * Histoplasma antigen (12/11/2017 3:56 PM CITY CONTROLLER) Report Direct Antigen Testing - Final: Negative for: Histoplasma antigen Histoplasma Antigen Result: ??None detected. * ??* ??* ??* ??* Result Interpretation: Reference interval: None Detected Results reported as ng/mL in 0.4 - 19 ng/mL Results above the limit of detection but below 0.4 ng/mL are reported as 'Positive, Below the Limit of Quantification' Results above 19 ng/mL are reported as 'Positive, Above the Limit of Quantification' * ??* ??* ??* ??* ??* ??* ??* ??* ??* ??* ??* ??* ??* ??* ??* ??* ??* ??* ??* This test was developed and its performance characteristics determined by [employer]. ??It has not been cleared or approved by the FDA; however, FDA clearance or approval is not currently required for clinical use. The results are not intended to be used as the sole means for clinical diagnosis or patient management decisions. [facility] Urine 12/11/2017 3:56 PM CITY CONTROLLER 12/11/2017 5:36 PM CITY CONTROLLER Narrative [facility] - 12/11/2017 5:36 PM CITY CONTROLLER Testing Performed by: [employer], [place] [address]. Abhijeet Boothe MD LAB MICROBIOLOGY - GENERAL OR DERABLES Final Result [facility] Department [place] [address] * Legionella pneumophilia antigen, urine (12/11/2017 3:56 PM CITY CONTROLLER) Report Direct Antigen Testing - Final: Negative for: Legionella antigen [facility] Urine 12/11/2017 3:56 PM CITY CONTROLLER 12/11/2017 5:36 PM CITY CONTROLLER Narrative [facility] - 12/11/2017 5:36 PM CITY CONTROLLER This test detects only Legionella pneumophila serogroup 1 antigen. ?? Current interpretive data was last revised on 06. Abhijeet Boothe MD LAB MICROBIOLOGY - GENERAL OR DERABLES Final Result Performing Organization Address [facility] de Phone Number [facility] [place] [address] * Tacrolimus level trough (12/11/2017 3:56 PM CITY CONTROLLER) Tacrolimus, trough 3.9 ng/mL [facility] Comment: Interpretive Data The therapeutic range for tacrolimus can vary by transplant organ type and sample timing but a trough range of 5 - 15 ng/mL is typical. Testing performed by liquid chromatography-tandem mass spectrometry (LC- MS/MS).This test was developed using an analyte specific reagent. Its performance characteristics were determined by the [facility] Laboratory in a manner consistent with CLIA requirements. This test has not been cleared or approved by the U.S. Food and Drug Administration. Current interpretive data was last revised on 2016. Blood specimen (specimen) 12/11/2017 3:56 PM CITY CONTROLLER 12/11/2017 5:12 PM CITY CONTROLLER Narrative [facility] - 12/12/2017 4:06 AM CITY CONTROLLER Sharon Eid MD LAB BLOOD ORDERABLES Final R esult Performing Organization Address [facility] de Phone Number [facility] Department [place] [address] * Glucose POC (12/11/2017 1:07 PM CITY CONTROLLER) Glucose, POC 143 70 - 199 mg/dL [facility] Blood specimen (specimen) 12/11/2017 1:07 PM CITY CONTROLLER 12/11/2017 1:07 PM CITY CONTROLLER Narrative [facility] - 12/11/2017 1:39 PM CITY CONTROLLER Francis Park MD PhD POINT OF CARE TEST ORDER SUBHA Final Result Performing Organization Address [facility] de Phone Number [facility] [place] [address] * Glucose POC (12/11/2017 9:24 AM CITY CONTROLLER) Glucose, POC 140 70 - 199 mg/dL [facility] Blood specimen (specimen) 12/11/2017 9:24 AM CITY CONTROLLER 12/11/2017 9:24 AM CITY CONTROLLER Narrative [facility] - 12/11/2017 9:52 AM CITY CONTROLLER Francis Park MD PhD POINT OF CARE TEST ORDER SUBHA Final Result Performing Organization Address [facility] Phone Number [facility] [place] [address] * (ABNORMAL) Hepatic function panel (12/11/2017 6:32 AM CITY CONTROLLER) AST 52(H) 10 - 50 Units/L [facility] ALT 40 7 - 55 Units/L [facility] Alk phos 727(H) 40 - 130 Units/L [facility] Bilirubin, total 0.2 0.1 - 1.2 mg/dL [facility] Bilirubin, direct 0.1 0.1 - 0.3 mg/dL [facility] Protein, pl 7.7 6.5 - 8.5 g/dL [facility] Albumin 2.6(L) 3.5 - 5.0 g/dL [facility] Blood specimen (specimen) 12/11/2017 6:32 AM CITY CONTROLLER 12/11/2017 7:29 AM CITY CONTROLLER Narrative [facility] - 12/11/2017 8:13 AM CITY CONTROLLER Sharon Eid MD LAB BLOOD ORDERABLES Final R esult Performing Organization Address [facility] Co de Phone Number [facility] Department [place] [address] * (ABNORMAL) Basic metabolic panel (12/11/2017 6:32 AM CITY CONTROLLER) Pathologist [facility] Sodium 131(L) 135 - 145 mmol/L [facility] Potassium, pl 5.0(H) 3.3 - 4.9 mmol/L [facility] Chloride 98 97 - 110 mmol/L [facility] CO2 27 22 - 32 mmol/L [facility] BUN 10 8 - 25 mg/dL [facility] Glucose 116 70 - 199 mg/dL [facility] Comment: Interpretive Data Fasting glucose >/= [...] interpretive data was last revised 2017. Creatinine 0.70(L) 0.80 - 1.30 mg/dL [facility] Calcium 9.0 8.5 - 10.3 mg/dL [facility] Anion gap 6 2 - 15 mmol/L [facility] Blood specimen (specimen) 12/11/2017 6:32 AM CITY CONTROLLER 12/11/2017 7:29 AM CITY CONTROLLER Narrative [facility] - 12/11/2017 8:13 AM CITY CONTROLLER us Alan Hurtado MD LAB BLOOD ORDERAB LES Final Result [facility] Department [place] [address] * (ABNORMAL) Morphology exam (12/11/2017 3:30 AM CITY CONTROLLER) [facility] Neutrophils 18.3 % [facility] Lymphocytes 61.7 % [facility] Monos 13.0 % [facility] Eosinophils 6.1 % [facility] Basophil pct 0.9 % [facility] Platelet estimate Adequate [facility] Anisocytosis 3+(A) [facility] Macrocytes > 15/HPF(A) [facility] Target cells 3-7/HPF(A) [facility] WBC counted 115 Cells [facility] RBC morphology Present(A) [facility] Neutrophil abs 1.02(L) 1.70 - 6.50 K/cumm [facility] Lymphs, abs 3.43(H) 0.80 - 3.30 K/cumm [facility] Monos, abs 0.72 0.20 - 0.80 K/cumm [facility] Eosinophils, abs 0.34 0.00 - 0.50 K/cumm [facility] Basophils, abs 0.05 0.00 - 0.10 K/cumm [facility] Immature granulocyte, abs 0.00 0.00 - 0.10 K/cumm [facility] Blood specimen (specimen) 12/11/2017 3:30 AM CITY CONTROLLER 12/11/2017 5:19 AM CITY CONTROLLER Narrative [facility] - 12/11/2017 7:23 AM CITY CONTROLLER Michael Perrin MD LAB BLOOD ORDERABLES Final Result [facility] Department [place] [address] * (ABNORMAL) Hepatic function panel (12/11/2017 3:30 AM CITY CONTROLLER) AST See Comment 10 - 50 Units/L [facility] Comment:CRDT, Hemolyzed Spec imen CRDT, Hemolyzed Specimen CRDT, Hemolyzed Specimen CRDT, Hemolyzed Specimen ALT 43 7 - 55 Units/L [facility] Alk phos 710(H) 40 - 130 Units/L [facility] Comment:Hemolyzed; result ma y be falsely decreased. Bilirubin, total 0.3 0.1 - 1.2 mg/dL [facility] Bilirubin, direct See Comment 0.1 - 0.3 mg/dL [facility] Comment:CRDT; Hemolyzed spec imen Protein, pl 7.9 6.5 - 8.5 g/dL [facility] Albumin 2.5(L) 3.5 - 5.0 g/dL [facility] Blood specimen (specimen) 12/11/2017 3:30 AM CITY CONTROLLER 12/11/2017 5:30 AM CITY CONTROLLER Narrative [facility] - 12/11/2017 6:02 AM CITY CONTROLLER us Michael Perrin MD LAB BLOOD ORDERABLES Final Result [facility] Department [place] [address] * (ABNORMAL) Basic metabolic panel (12/11/2017 3:30 AM CITY CONTROLLER) Sodium 130(L) 135 - 145 mmol/L [facility] Potassium, pl See Comment 3.3 - 4.9 mmol/L [facility] Comment:CRDT; Grossly Hemoly zed sample; Unable to test. Chloride 98 97 - 110 mmol/L [facility] CO2 29 22 - 32 mmol/L [facility] BUN 11 8 - 25 mg/dL [facility] Glucose 108 70 - 199 mg/dL [facility] Comment: Interpretive Data Fasting glucose >/= [...] interpretive data was last revised 2017. Creatinine 0.68(L) 0.80 - 1.30 mg/dL [facility] Calcium 8.7 8.5 - 10.3 mg/dL [facility] Anion gap 3 2 - 15 mmol/L [facility] Blood specimen (specimen) 12/11/2017 3:30 AM CITY CONTROLLER 12/11/2017 5:30 AM CITY CONTROLLER Narrative [facility] - 12/11/2017 6:02 AM CITY CONTROLLER Michael Perrin MD LAB BLOOD ORDERABLES Final Result Performing Organization Address [facility]/ZIP Co de Phone Number [facility] [place] [address] * Magnesium (12/11/2017 3:30 AM CITY CONTROLLER) Magnesium 1.5 1.4 - 2.5 mg/dL [facility] Blood specimen (specimen) 12/11/2017 3:30 AM CITY CONTROLLER 12/11/2017 5:30 AM CITY CONTROLLER Narrative [facility] - 12/11/2017 6:02 AM CITY CONTROLLER Michael Perrin MD LAB BLOOD ORDERABLES Final Result Performing Organization Address [facility] [place] [address] * Phosphorus (12/11/2017 3:30 AM CITY CONTROLLER) Phosphorus, pl 3.3 2.3 - 4.5 mg/dL [facility] Comment:Hemolyzed; result ma y be falsely elevated. Blood specimen (specimen) 12/11/2017 3:30 AM CITY CONTROLLER 12/11/2017 5:30 AM CITY CONTROLLER Narrative [facility] - 12/11/2017 6:02 AM CITY CONTROLLER Michael Perrin MD LAB BLOOD ORDERABLES Final Result Performing Organization Address [facility]/[place] [address] * (ABNORMAL) CBC without differential (12/11/2017 3:30 AM CITY CONTROLLER) Pathologist [facility] [place] WBC 5.56 3.80 - 9.90 K/cumm [facility] RBC 2.96(L) 4.30 - 5.80 M/cumm [facility] Hgb 10.1(L) 13.0 - 17.5 g/dL [facility] Hct 30.0(L) 38.9 - 50.3 % [facility] MCV 101.4(H) 81.3 - 96.4 fL [facility] MCH 34.1(H) 27.1 - 33.3 pg [facility] MCHC 33.7 32.3 - 35.7 g/dL [facility] RDW CV 15.1(H) 11.1 - 14.9 % [facility] RDW SD 55.7(H) 35.7 - 48.1 fL [facility] NRBC 0.0 0.0 - 0.2 % [facility] NRBC abs 0.00 0.00 - 0.01 K/cumm [facility] Plt 266 150 - 400 K/cumm [facility] MPV 11.4 9.1 - 12.3 fL [facility] Blood specimen (specimen) 12/11/2017 3:30 AM CITY CONTROLLER 12/11/2017 5:19 AM CITY CONTROLLER Narrative [facility] - 12/11/2017 5:41 AM CITY CONTROLLER us Michael Perrin MD LAB BLOOD ORDERABLES Final Result [facility] Department [place] [address] * Glucose POC (12/10/2017 8:53 PM CITY CONTROLLER) Pathologist [facility] [place] Glucose, POC 76 70 - 199 mg/dL [facility] Blood specimen (specimen) 12/10/2017 8:53 PM CITY CONTROLLER 12/10/2017 8:53 PM CITY CONTROLLER Narrative [facility] - 12/10/2017 9:05 PM CITY CONTROLLER us Francis Park MD PhD POINT OF CARE TEST ORDER SUBHA Final Result Performing Organization Address [facility] [place] [address] * Tacrolimus level, random (12/10/2017 8:27 PM CITY CONTROLLER) Pathologist [facility] [place] Tacrolimus, random 4.2 ng/mL [facility] Comment: Interpretive Data Testing performed by liquid chromatography-tandem mass spectrometry (LC- MS/MS).This test was developed using an analyte specific reagent. Its performance characteristics were determined by the [facility] in a manner consistent with CLIA requirements. ??This test has not been cleared or approved by the U.S. Food and Drug Administration. Current interpretive data was last revised on 2016. Blood specimen (specimen) 12/10/2017 8:27 PM CITY CONTROLLER 12/10/2017 9:08 PM CITY CONTROLLER Narrative [facility] - 12/11/2017 3:56 AM CITY CONTROLLER Alan Hurtado MD LAB BLOOD ORDERAB LES Final Result Performing Organization Address [facility] [place] [address] * (ABNORMAL) Glucose POC (12/10/2017 4:52 PM CITY CONTROLLER) Glucose, POC 223(H) 70 - 199 mg/dL [facility] Blood specimen (specimen) 12/10/2017 4:52 PM CITY CONTROLLER 12/10/2017 4:52 PM CITY CONTROLLER Narrative [facility] - 12/10/2017 5:04 PM CITY CONTROLLER Francis Park MD PhD POINT OF CARE TEST ORDER SUBHA Final Result Performing Organization Address [facility] [place] [address] * Glucose POC (12/10/2017 11:38 AM CITY CONTROLLER) Glucose, POC 169 70 - 199 mg/dL [facility] Blood specimen (specimen) 12/10/2017 11:38 AM CITY CONTROLLER 12/10/2017 11:38 AM CITY CONTROLLER Narrative [facility] - 12/10/2017 11:58 AM CITY CONTROLLER Francis Park MD PhD POINT OF CARE TEST ORDER SUBHA Final Result Performing Organization Address [facility]/ZIP Co de Phone Number [facility] Department [place] [address] * Glucose POC (12/10/2017 10:17 AM CITY CONTROLLER) [facility] Glucose, POC 133 70 - 199 mg/dL [facility] Blood specimen (specimen) 12/10/2017 10:17 AM CITY CONTROLLER 12/10/2017 10:17 AM CITY CONTROLLER Narrative [facility] - 12/10/2017 10:28 AM CITY CONTROLLER Francis Park MD PhD POINT OF CARE TEST ORDER SUBHA Final Result Performing Organization Address [facility] Co de Phone Number [facility] Department [place] [address] * (ABNORMAL) Morphology exam (12/10/2017 3:02 AM CITY CONTROLLER) [facility] Neutrophils 31.6 % [facility] Lymphocytes 49.1 % [facility] Monos 16.7 % [facility] Eosinophils 1.7 % [facility] Basophil pct 0.9 % [facility] Platelet estimate Adequate [facility] Anisocytosis 3+(A) [facility] Macrocytes > 15/HPF(A) [facility] Target cells > 15/HPF(A) [facility] WBC counted 114 Cells [facility] RBC morphology Present(A) [facility] Neutrophil abs 2.01 1.70 - 6.50 K/cumm [facility] Lymphs, abs 3.12 0.80 - 3.30 K/cumm [facility] Monos, abs 1.06(H) 0.20 - 0.80 K/cumm [facility] Eosinophils, abs 0.11 0.00 - 0.50 K/cumm [facility] Basophils, abs 0.06 0.00 - 0.10 K/cumm [facility] Immature granulocyte, abs 0.00 0.00 - 0.10 K/cumm [facility] Blood specimen (specimen) 12/10/2017 3:02 AM CITY CONTROLLER 12/10/2017 5:20 AM CITY CONTROLLER Narrative [facility] - 12/10/2017 6:14 AM CITY CONTROLLER Michael Perrin MD LAB BLOOD ORDERABLES Final Result Performing Organization Address [facility]/ZIP Co de Phone Number [facility] Department [place] [address] * (ABNORMAL) Hepatic function panel (12/10/2017 3:02 AM CITY CONTROLLER) AST 52(H) 10 - 50 Units/L [facility] ALT 35 7 - 55 Units/L [facility] Alk phos 689(H) 40 - 130 Units/L [facility] Bilirubin, total 0.3 0.1 - 1.2 mg/dL [facility] Bilirubin, direct <0.2 0.1 - 0.3 mg/dL [facility] Protein, pl 7.1 6.5 - 8.5 g/dL [facility] Albumin 2.4(L) 3.5 - 5.0 g/dL [facility] Blood specimen (specimen) 12/10/2017 3:02 AM CITY CONTROLLER 12/10/2017 5:43 AM CITY CONTROLLER Narrative [facility] - 12/10/2017 6:16 AM CITY CONTROLLER Michael Perrin MD LAB BLOOD ORDERABLES Final Result Performing Organization Address [facility]/ZIP Co de Phone Number [facility] Department [place] [address] * (ABNORMAL) Basic metabolic panel (12/10/2017 3:02 AM CITY CONTROLLER) Sodium 134(L) 135 - 145 mmol/L [facility] Potassium, pl 5.3(H) 3.3 - 4.9 mmol/L [facility] Chloride 100 97 - 110 mmol/L [facility] CO2 30 22 - 32 mmol/L [facility] BUN 12 8 - 25 mg/dL [facility] Glucose 106 70 - 199 mg/dL [facility] Comment: Interpretive Data Fasting glucose >/= [...] interpretive data was last revised 2017. Creatinine 0.83 0.80 - 1.30 mg/dL [facility] Calcium 8.4(L) 8.5 - 10.3 mg/dL [facility] Anion gap 4 2 - 15 mmol/L [facility] Blood specimen (specimen) 12/10/2017 3:02 AM CITY CONTROLLER 12/10/2017 5:43 AM CITY CONTROLLER Narrative [facility] - 12/10/2017 6:07 AM CITY CONTROLLER us Michael Perrin MD LAB BLOOD ORDERABLES Final Result [facility] Department [place] [address] * Magnesium (12/10/2017 3:02 AM CITY CONTROLLER) Magnesium 1.5 1.4 - 2.5 mg/dL [facility] Blood specimen (specimen) 12/10/2017 3:02 AM CITY CONTROLLER 12/10/2017 5:43 AM CITY CONTROLLER Narrative [facility] - 12/10/2017 6:07 AM CITY CONTROLLER Michael Perrin MD LAB BLOOD ORDERABLES Final Result Performing Organization Address [facility] Co de Phone Number [facility] [place] [address] * Phosphorus (12/10/2017 3:02 AM CITY CONTROLLER) [facility] Phosphorus, pl 3.4 2.3 - 4.5 mg/dL [facility] Blood specimen (specimen) 12/10/2017 3:02 AM CITY CONTROLLER 12/10/2017 5:43 AM CITY CONTROLLER Narrative [facility] - 12/10/2017 6:07 AM CITY CONTROLLER Michael Perrin MD LAB BLOOD ORDERABLES Final Result Performing Organization Address [facility] Co de Phone Number [facility] [place] [address] * (ABNORMAL) CBC without differential (12/10/2017 3:02 AM CITY CONTROLLER) [facility] WBC 6.35 3.80 - 9.90 K/cumm [facility] RBC 2.76(L) 4.30 - 5.80 M/cumm [facility] Hgb 9.3(L) 13.0 - 17.5 g/dL [facility] Hct 27.9(L) 38.9 - 50.3 % [facility] MCV 101.1(H) 81.3 - 96.4 fL [facility] MCH 33.7(H) 27.1 - 33.3 pg [facility] MCHC 33.3 32.3 - 35.7 g/dL [facility] RDW CV 15.3(H) 11.1 - 14.9 % [facility] RDW SD 56.0(H) 35.7 - 48.1 fL [facility] NRBC 0.0 0.0 - 0.2 % [facility] NRBC abs 0.00 0.00 - 0.01 K/cumm [facility] Plt 254 150 - 400 K/cumm [facility] MPV 11.0 9.1 - 12.3 fL [facility] Blood specimen (specimen) 12/10/2017 3:02 AM CITY CONTROLLER 12/10/2017 5:20 AM CITY CONTROLLER Narrative [facility] - 12/10/2017 5:32 AM CITY CONTROLLER us Michael Perrin MD LAB BLOOD ORDERABLES Final Result Performing Organization Address [facility]/ZIP Co de Phone Number [facility] [place] [address] * Blood culture (12/10/2017 1:18 AM CITY CONTROLLER) Report Final Report: No growth [facility] Blood specimen (specimen) (Antecubital, right) 12/10/2017 1:18 AM CITY CONTROLLER 12/10/2017 3:30 AM CITY CONTROLLER Narrative [facility] - 12/10/2017 4:00 PM CITY CONTROLLER Blood cultures are incubated for five days on a continuously monitored blood culture system. ??The first report of a negative culture is issued within 24 hours of receipt of the specimen in the laboratory. ??Positive culture results are reported as soon as they are detected. ??For blood cultures with gram-positive cocci, a rapid molecular test for organism identification may be performed using the [employer] Nanosphere Gram Positive Blood Culture Assay. ??The Nanosphere assay detects microbial DNA in positive blood culture broth via hybridization of target DNA to capture oligonucleotides on a microarray. ??This assay has been cleared by the [place] Food and Drug Administration and its performance characteristics have been verified by the [facility]. Current Interpretive Data was last revised on 2014. us Domingo Gan MD LAB MICROBIOLOGY - GENERAL ORDER SUBHA Final Result Performing Organization Address [facility]/ZIP Co de Phone Number [facility] Department [place] [address] * Blood culture (12/10/2017 1:18 AM CITY CONTROLLER) Report Final Report: No growth [facility] Blood specimen (specimen) (Antecubital, left) 12/10/2017 1:18 AM CITY CONTROLLER 12/10/2017 3:30 AM CITY CONTROLLER Narrative [facility] - 12/10/2017 4:00 PM CITY CONTROLLER Blood cultures are incubated for five days on a continuously monitored blood culture system. ??The first report of a negative culture is issued within 24 hours of receipt of the specimen in the laboratory. ??Positive culture results are reported as soon as they are detected. ??For blood cultures with gram-positive cocci, a rapid molecular test for organism identification may be performed using the [employer] Nanosphere Gram Positive Blood Culture Assay. ??The Nanosphere assay detects microbial DNA in positive blood culture broth via hybridization of target DNA to capture oligonucleotides on a microarray. ??This assay has been cleared by the [place] Food and Drug Administration and its performance characteristics have been verified by the [facility]. Current Interpretive Data was last revised on 2014. us Domingo Gan MD LAB MICROBIOLOGY - GENERAL ORDER SUBHA Final Result [facility] Department [place] [address] * (ABNORMAL) Glucose POC (12/09/2017 9:12 PM CITY CONTROLLER) Pathologist [facility] [place] Glucose, POC 203(H) 70 - 199 mg/dL [facility] Blood specimen (specimen) 12/09/2017 9:12 PM CITY CONTROLLER 12/09/2017 9:12 PM CITY CONTROLLER Narrative [facility] - 12/09/2017 9:24 PM CITY CONTROLLER us Francis Park MD PhD POINT OF CARE TEST ORDER SUBHA [place] [address] * Glucose POC (12/09/2017 6:52 PM CITY CONTROLLER) Glucose, POC 151 70 - 199 mg/dL [facility] Blood specimen (specimen) 12/09/2017 6:52 PM CITY CONTROLLER 12/09/2017 6:52 PM CITY CONTROLLER Narrative [facility] - 12/09/2017 7:37 PM CITY CONTROLLER Francis Park MD PhD POINT OF CARE TEST ORDER SUBHA Final Result Performing Organization Address [facility]/[place] [address] * (ABNORMAL) Glucose POC (12/09/2017 3:51 PM CITY CONTROLLER) Glucose, POC 247(H) 70 - 199 mg/dL [facility] Blood specimen (specimen) 12/09/2017 3:51 PM CITY CONTROLLER 12/09/2017 3:51 PM CITY CONTROLLER Narrative [facility] - 12/09/2017 4:14 PM CITY CONTROLLER us Francis Park MD PhD POINT OF CARE TEST ORDER SUBHA Final Result Performing Organization Address [facility] [place] [address] * CT Chest WO Contrast (12/09/2017 1:28 PM CITY CONTROLLER) Anatomical Region Laterality Modality Body N/A Computed Tomogra phy 12/09/2017 1:28 PM CITY CONTROLLER Narrative 12/09/2017 1:36 PM CITY CONTROLLER ZACH LAURENT M.D. FINAL REPORT ACC# ??Date Time ??Exam [id number] Dec 09, 2017 07:28:[id number] Chest without contrast EXAMINATION: ??CT CHEST WITHOUT INTRAVENOUS CONTRAST TECHNIQUE: Standard noncontrast CT of the chest was performed. HISTORY: 52-year-old man with a history of acute myelogenous leukemia. 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 FINDINGS: Comparison is made to prior study of November 21, 2017. No supraclavicular, axillary or mediastinal lymphadenopathy is seen. Note is made of a medium-sized right pleural effusion. There is decreased compared to the prior study and note is made of some pleural thickening seen at slice position negative 359.20 which may be indicative of a malignant pleural effusion. The left pleural effusion has resolved. The liver is mildly dense from prior transfusions. Adrenal glands are unremarkable. The remainder of the upper abdomen is also unremarkable. There is some minimal stranding around the pancreas which has improved compared to the prior study and may have represented some pancreatitis. The lung windows show underlying centrilobular emphysema with an upper lobe predominance. Again seen is an area of consolidation in the right base which has improved compared to the prior study. There is no new consolidation or interstitial lung disease. Minimal scarring is seen in the right apex. Moderately severe coronary atherosclerosis is noted. The bone windows do not demonstrate any osseous lesion. Heart size is normal and trace pericardial effusion is seen. IMPRESSION: ??1. Decrease in size of a right pleural effusion nodularity of the right pleural fluid may be indicative of a malignant effusion. 2. Decrease in right lower lobe consolidation but no new consolidation seen. 3. Decrease in findings of pancreatitis. Electronically signed by: Zach [place] M.D. Requested By: SHARON EID M.D. Dictated By: ?? ZACH LAURENT M.D. ??on Dec 09 2017 ??7:34A This document has been electronically signed by: ZACH LAURENT M.D. on Dec 09 2017 ??7:34A [id number] LAURENT M.D. FINAL REPORT Attending: ??MARCELINA, ??SOURAV Requesting: ??CELESTE, ??SHARON Requesting Fax: ?? Attending Fax: ?? Attending ID: ??[id number] Requesting ID: ??[id number] Report To 1 ID: ??[id number] ? Report To 1 Name: ??, ?? Report To 1 FAX: ?? NextGen Order #: ?? Procedure Note Miscellaneous, Not In File - 12/09/2017 ZACH LAURENT M.D. FINAL REPORT ACC# Date Time Exam [id number] Dec 09, 2017 07:28:[address] Chest without contrast EXAMINATION: CT CHEST WITHOUT INTRAVENOUS CONTRAST TECHNIQUE: Standard noncontrast CT of the chest was performed. HISTORY: 52-year-old man with a history of acute myelogenous leukemia. 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 FINDINGS: Comparison is made to prior study of November 21, 2017. No supraclavicular, axillary or mediastinal lymphadenopathy is seen. Note is made of a medium-sized right pleural effusion. There is decreased compared to the prior study and note is made of some pleural thickening seen at slice position negative 359.20 which may be indicative of a malignant pleural effusion. The left pleural effusion has resolved. The liver is mildly dense from prior transfusions. Adrenal glands are unremarkable. The remainder of the upper abdomen is also unremarkable. There is some minimal stranding around the pancreas which has improved compared to the prior study and may have represented some pancreatitis. The lung windows show underlying centrilobular emphysema with an upper lobe predominance. Again seen is an area of consolidation in the right base which has improved compared to the prior study. There is no new consolidation or interstitial lung disease. Minimal scarring is seen in the right apex. Moderately severe coronary atherosclerosis is noted. The bone windows do not demonstrate any osseous lesion. Heart size is normal and trace pericardial effusion is seen. IMPRESSION: 1. Decrease in size of a right pleural effusion nodularity of the right pleural fluid may be indicative of a malignant effusion. 2. Decrease in right lower lobe consolidation but no new consolidation seen. 3. Decrease in findings of pancreatitis. Electronically signed by: Zach Laurent M.D. Requested By: SHARON EID M.D. Dictated By: ZACH LAURENT M.D. on Dec 09 2017 7:34A This document has been electronically signed by: ZACH LAURENT M.D. on Dec 09 2017 7:34A [id number] LAURENT M.D. FINAL REPORT Attending: SOURAV CALLEJAS Requesting: SHARON EID Requesting Fax: Attending Fax: Attending ID: [id number] Requesting ID: [id number] Report To 1 ID: [id number] Report To 1 Name: , Report To 1 FAX: NextGen Order #: [id number] Sharon Eid MD IMG CT PROCEDURES Final Resu lt * Glucose POC (12/09/2017 8:54 AM CITY CONTROLLER) Pathologist [facility] [place] Glucose, POC 149 70 - 199 mg/dL [facility] Blood specimen (specimen) 12/09/2017 8:54 AM CITY CONTROLLER 12/09/2017 8:54 AM CITY CONTROLLER Narrative [facility] - 12/09/2017 9:21 AM CITY CONTROLLER Francis Park MD PhD POINT OF CARE TEST ORDER SUBHA Final Result Performing Organization Address [facility] de Phone Number [facility] [place] [address] * CMV DNA QN, PCR (12/09/2017 4:17 AM CITY CONTROLLER) [facility] CMV DNA Not Detected [facility] Comment: Interpretive Data: The quantifiable range of this assay is 137 IUnits/mL to 9,100,000 IUnits/mL (2.14 log IUnits/mL to 6.96 log IUnits/mL). Testing was performed by the [employer]HEL Ampli[employer]/MICHEL TaqMan CMV Test ([employer] Testing performed at [facility] Current interpretive data was last revised on 17. Blood specimen (specimen) 12/09/2017 4:17 AM CITY CONTROLLER 12/09/2017 1:45 PM CITY CONTROLLER Narrative [facility] - 12/09/2017 7:55 PM CITY CONTROLLER us Abhijeet Jose LAB MICROBIOLOGY - GENERAL ORDERABLES Final Result Performing Organization Address [facility] Co de Phone Number [facility] [place] [address] * Type and screen (12/09/2017 4:17 AM CITY CONTROLLER) Pathologist [facility] [place] ABO Rh A Positive [facility] Ursula, indirect Negative [facility] Blood specimen (specimen) 12/09/2017 4:17 AM CITY CONTROLLER 12/09/2017 5:52 AM CITY CONTROLLER Narrative [facility] - 12/09/2017 9:43 AM CITY CONTROLLER Michael Perrin MD LAB BLOOD BANK TEST ORDERAB LES Final Result Performing Organization Address [facility] de Phone Number [facility] [place] [address] * Tacrolimus level, random (12/09/2017 4:17 AM CITY CONTROLLER) Pathologist [facility] [place] Tacrolimus, random 10.4 ng/mL [facility] Comment: Interpretive Data Testing performed by liquid chromatography-tandem mass spectrometry (LC- MS/MS).This test was developed using an analyte specific reagent. Its performance characteristics were determined by the [facility] in a manner consistent with CLIA requirements. ??This test has not been cleared or approved by the U.S. Food and Drug Administration. Current interpretive data was last revised on 2016. Blood specimen (specimen) 12/09/2017 4:17 AM CITY CONTROLLER 12/09/2017 5:28 AM CITY CONTROLLER Narrative [facility] - 12/09/2017 7:58 AM CITY CONTROLLER Sharon Eid MD LAB BLOOD ORDERABLES Final R esult Performing Organization Address [facility] de Phone Number [facility] [place] [address] * Protime-INR (12/09/2017 4:17 AM CITY CONTROLLER) Pathologist [facility] [place] PT 12.6 8.5 - 13.0 sec [facility] INR 1.17 0.80 - 1.21 [facility] Comment: Interpretive Data Inpatient therapeutic ranges* Atrial fibrillation ?2.0-3.0 INR Venous thrombo-embolism ?2.0-3.0 INR Bioprosthetic heart valve ?* Mechanical heart valve, bileaflet or tilting disk,aortic position ? 2.0-3.0 INR All other,or bileaflet or tilting disk, in mitral position ? 2.5-3.5 INR *See the pharmacy resource directory (PHRED) for an updated copy of the Tool Book at [email or web address] Current Interpretive Data was last revised 2012. Blood specimen (specimen) 12/09/2017 4:17 AM CITY CONTROLLER 12/09/2017 6:06 AM CITY CONTROLLER N[facility]ative [facility] 12/09/2017 6:32 AM CITY CONTROLLER Michael Perrin MD LAB BLOOD ORDERABLES Final Result [facility] Department [place] [address] * (ABNORMAL) aPTT (12/09/2017 4:17 AM CITY CONTROLLER) aPTT 40.0(H) 25.0 - 37.0 sec [facility] Comment: Interpretive Data Therapeutic heparin range:60.0 - 94.0 sec based on correlation with therapeutic heparin activity range of 0.3 -0.7 Units/mL. Current interpretive data was last revised on 2011. Blood specimen (specimen) 12/09/2017 4:17 AM CITY CONTROLLER 12/09/2017 6:06 AM CITY CONTROLLER Narrative [facility] - 12/09/2017 6:31 AM CITY CONTROLLER us Michael Perrin MD LAB BLOOD ORDERABLES Final Result [facility] Department [place] [address] * (ABNORMAL) Morphology exam (12/09/2017 4:17 AM CITY CONTROLLER) Neutrophils 47.3 % [facility] Lymphocytes 38.4 % [facility] Monos 10.7 % [facility] Eosinophils 2.7 % [facility] Basophil pct 0.9 % [facility] Platelet estimate Adequate [facility] Anisocytosis 3+(A) [facility] Macrocytes > 15/HPF(A) [facility] WBC counted 112 Cells [facility] RBC morphology Present(A) [facility] Neutrophil abs 3.53 1.70 - 6.50 K/cumm [facility] Lymphs, abs 2.86 0.80 - 3.30 K/cumm [facility] Monos, abs 0.80 0.20 - 0.80 K/cumm [facility] Eosinophils, abs 0.20 0.00 - 0.50 K/cumm [facility] Basophils, abs 0.07 0.00 - 0.10 K/cumm [facility] Immature granulocyte, abs 0.00 0.00 - 0.10 K/cumm [facility] Blood specimen (specimen) 12/09/2017 4:17 AM CITY CONTROLLER 12/09/2017 5:27 AM CITY CONTROLLER Narrative [facility] - 12/09/2017 6:26 AM CITY CONTROLLER us Michael Perrin MD LAB BLOOD ORDERABLES Final Result [facility] Department [place] [address] * (ABNORMAL) Comprehensive metabolic panel (12/09/2017 4:17 AM CITY CONTROLLER) Sodium 132(L) 135 - 145 mmol/L [facility] Potassium, pl 5.2(H) 3.3 - 4.9 mmol/L [facility] CO2 29 22 - 32 mmol/L [facility] BUN 11 8 - 25 mg/dL [facility] Glucose 130 70 - 199 mg/dL [facility] Comment: Interpretive Data Fasting glucose >/= [...] interpretive data was last revised 2017. Creatinine 0.76(L) 0.80 - 1.30 mg/dL [facility] Calcium 8.8 8.5 - 10.3 mg/dL [facility] Chloride 98 97 - 110 mmol/L [facility] Albumin 2.4(L) 3.5 - 5.0 g/dL [facility] AST 51(H) 10 - 50 Units/L [facility] ALT 37 7 - 55 Units/L [facility] Alk phos 748(H) 40 - 130 Units/L [facility] Bilirubin, total 0.3 0.1 - 1.2 mg/dL [facility] Protein, pl 7.7 6.5 - 8.5 g/dL [facility] Anion gap 5 2 - 15 mmol/L [facility] Blood specimen (specimen) 12/09/2017 4:17 AM CITY CONTROLLER 12/09/2017 5:32 AM CITY CONTROLLER Narrative [facility] - 12/09/2017 6:05 AM CITY CONTROLLER us Michael Perrin MD LAB BLOOD ORDERABLES Final Result [facility] Department [place] [address] * Magnesium (12/09/2017 4:17 AM CITY CONTROLLER) Magnesium 1.6 1.4 - 2.5 mg/dL [facility] Blood specimen (specimen) 12/09/2017 4:17 AM CITY CONTROLLER 12/09/2017 5:32 AM CITY CONTROLLER Narrative [facility] - 12/09/2017 6:05 AM CITY CONTROLLER Michael Perrin MD LAB BLOOD ORDERABLES Final Result [facility] [place] [address] * Phosphorus (12/09/2017 4:17 AM CITY CONTROLLER) [facility] Phosphorus, pl 3.9 2.3 - 4.5 mg/dL [facility] Blood specimen (specimen) 12/09/2017 4:17 AM CITY CONTROLLER 12/09/2017 5:32 AM CITY CONTROLLER Narrative [facility] - 12/09/2017 6:05 AM CITY CONTROLLER Michael Perrin MD LAB BLOOD ORDERABLES Final Result Performing Organization Address [facility] Co de Phone Number [facility] [place] [address] * Lactate dehydrogenase (LD) (12/09/2017 4:17 AM CITY CONTROLLER) [facility] Lactate dehydrogenase (LDH) 165 100 - 250 Units/L [facility] Blood specimen (specimen) 12/09/2017 4:17 AM CITY CONTROLLER 12/09/2017 5:32 AM CITY CONTROLLER Narrative [facility] - 12/09/2017 6:05 AM CITY CONTROLLER Michael Perrin MD LAB BLOOD ORDERABLES Final Result Performing Organization Address [facility]/ZIP Co de Phone Number [facility] [place] [address] * (ABNORMAL) CBC without differential (12/09/2017 4:17 AM CITY CONTROLLER) [facility] Signature WBC 7.46 3.80 - 9.90 K/cumm [facility] RBC 2.99(L) 4.30 - 5.80 M/cumm [facility] Hgb 10.1(L) 13.0 - 17.5 g/dL [facility] Hct 30.0(L) 38.9 - 50.3 % [facility] MCV 100.3(H) 81.3 - 96.4 fL [facility] MCH 33.8(H) 27.1 - 33.3 pg [facility] MCHC 33.7 32.3 - 35.7 g/dL [facility] RDW CV 15.2(H) 11.1 - 14.9 % [facility] RDW SD 56.1(H) 35.7 - 48.1 fL [facility] NRBC 0.0 0.0 - 0.2 % [facility] NRBC abs 0.00 0.00 - 0.01 K/cumm [facility] Plt 260 150 - 400 K/cumm [facility] MPV 11.0 9.1 - 12.3 fL [facility] Blood specimen (specimen) 12/09/2017 4:17 AM CITY CONTROLLER 12/09/2017 5:27 AM CITY CONTROLLER Narrative [facility] - 12/09/2017 5:38 AM CITY CONTROLLER us Michael Perrin MD LAB BLOOD ORDERABLES Final Result [facility] Department [place] [address] * US Abdomen Limited (12/09/2017 1:27 AM CITY CONTROLLER) Anatomical Region Laterality Modality Abdomen N/A Ultrasound 12/09/2017 1:27 AM CITY CONTROLLER Narrative 12/09/2017 1:15 PM CITY CONTROLLER ABHIJEET CASTILLO M.D. OLGA FIORE M.D. FINAL REPORT The radiology attending physician has personally reviewed this study, and has reviewed and/or edited this written report and agrees with it. ACC# ??Date Time ??Exam [id number] Dec 08, 2017 19:27:00 [id number] Sono Abd Lmtd EXAMINATION: ??LIMITED ABDOMINAL SONOGRAM HISTORY: ??Elevated ALP, history of AML status post stem cell transplant in 2008 COMPARISON: ??Outside hospital body CT dated 11/23/2017. FINDINGS: ?? Liver: The liver is normal in size. ??The echotexture is normal. ??The echogenicity is normal. There is no surface nodularity. No focal solid lesions are visualized. ?? Gallbladder: The gallbladder is normal in size. There are stones and sludge within the gallbladder. There is no gallbladder wall thickening. ??The sonographic Arredondo's sign is negative. Bile Duct: There is no intrahepatic bile duct dilatation. The common duct measures 2 mm, 2 mm, and 2 mm in the proximal, mid and distal segments respectively. ?? Right Kidney: There is no hydronephrosis in the visualized portions of the right kidney. Pancreas: The visualized portions of the head and body of the pancreas are normal. Inferior vena cava: The proximal IVC is normal. Other: There is a large right pleural effusion. IMPRESSION: ??1. Normal liver without any focal lesions. 2. Biliary stones and sludge without cholecystitis. 3. Large right pleural effusion. Electronically signed by: Abhijeet Castillo M.D. Requested By: SHARON EID M.D. Dictated By: ?? OLGA FIORE M.D. ??on Dec 08 2017 ??8:28P This document has been electronically signed by: ABHIJEET CASTILLO M.D. on Dec 09 2017 ??7:13A [id number] PEREYRA M.D. FINAL REPORT The radiology attending physician has personally reviewed this study, and has reviewed and/or edited this written report and agrees with it. Attending: ??MARCELINA, ??SOURAV Requesting: ??CELESTE, ??SHARON Requesting Fax: ?? Attending Fax: ?? Attending ID: ??[id number] Requesting ID: ??[id number] Report To 1 ID: ??[id number] ? Report To 1 Name: ??, ?? Report To 1 FAX: ?? NextGen Order #: ?? Procedure Note Miscellaneous, Not In File - 12/09/2017 Toño PEREYRA M.D. FINAL REPORT The radiology attending physician has personally reviewed this study, and has reviewed and/or edited this written report and agrees with it. ACC# Date Time Exam [id number] Dec 08, 2017 19:27:00 [id number] Sono Abd Lmtd EXAMINATION: LIMITED ABDOMINAL SONOGRAM HISTORY: Elevated ALP, history of AML status post stem cell transplant in 2008 COMPARISON: Outside hospital body CT dated 11/23/2017. FINDINGS: Liver: The liver is normal in size. The echotexture is normal. The echogenicity is normal. There is no surface nodularity. No focal solid lesions are visualized. Gallbladder: The gallbladder is normal in size. There are stones and sludge within the gallbladder. There is no gallbladder wall thickening. The sonographic Arredondo's sign is negative. Bile Duct: There is no intrahepatic bile duct dilatation. The common duct measures 2 mm, 2 mm, and 2 mm in the proximal, mid and distal segments respectively. Right Kidney: There is no hydronephrosis in the visualized portions of the right kidney. Pancreas: The visualized portions of the head and body of the pancreas are normal. Inferior vena cava: The proximal IVC is normal. Other: There is a large right pleural effusion. IMPRESSION: 1. Normal liver without any focal lesions. 2. Biliary stones and sludge without cholecystitis. 3. Large right pleural effusion. Electronically signed by: Abhijeet Castillo M.D. Requested By: SHARON EID M.D. Dictated By: OLGA FIORE M.D. on Dec 08 2017 8:28P This document has been electronically signed by: ABHIJEET CASTILLO M.D. on Dec 09 2017 7:13A [id number] PEREYRA M.D. FINAL REPORT The radiology attending physician has personally reviewed this study, and has reviewed and/or edited this written report and agrees with it. Attending: SOURAV CALLEJAS Requesting: SHARON EID Requesting Fax: Attending Fax: Attending ID: [id number] Requesting ID: [id number] Report To 1 ID: [id number] Report To 1 Name: , Report To 1 FAX: NextGen Order #: Sharon Eid MD [facility] US PROCEDURES Final Resu lt * (ABNORMAL) Glucose POC (12/08/2017 9:46 PM CITY CONTROLLER) Glucose, POC 249(H) 70 - 199 mg/dL [facility] Blood specimen (specimen) 12/08/2017 9:46 PM CITY CONTROLLER 12/08/2017 9:46 PM CITY CONTROLLER Narrative [facility] - 12/08/2017 10:15 PM CITY CONTROLLER Francis Park MD PhD POINT OF CARE TEST ORDER SUBHA Final Result Performing Organization Address [facility] Co de Phone Number [facility] [place] [address] * (ABNORMAL) Glucose POC (12/08/2017 5:33 PM CITY CONTROLLER) Glucose, POC 211(H) 70 - 199 mg/dL [facility] Blood specimen (specimen) 12/08/2017 5:33 PM CITY CONTROLLER 12/08/2017 5:33 PM CITY CONTROLLER Narrative [facility] - 12/08/2017 5:58 PM CITY CONTROLLER Francis Park MD PhD POINT OF CARE TEST ORDER SUBHA Final Result Performing Organization Address [facility]/ZIP Co de Phone Number [facility] [place] [address] * Glucose POC (12/08/2017 2:27 PM CITY CONTROLLER) Glucose, POC 145 70 - 199 mg/dL [facility] Blood specimen (specimen) 12/08/2017 2:27 PM CITY CONTROLLER 12/08/2017 2:27 PM CITY CONTROLLER Narrative [facility] - 12/08/2017 2:52 PM CITY CONTROLLER Francis Park MD PhD POINT OF CARE TEST ORDER SUBHA Final Result Performing Organization Address [facility] Co de Phone Number [facility] [place] [address] * Glucose POC (12/08/2017 9:44 AM CITY CONTROLLER) Glucose, POC 154 70 - 199 mg/dL [facility] Blood specimen (specimen) 12/08/2017 9:44 AM CITY CONTROLLER 12/08/2017 9:44 AM CITY CONTROLLER Narrative [facility] - 12/08/2017 10:06 AM CITY CONTROLLER Francis Park MD PhD POINT OF CARE TEST ORDER SUBHA Final Result Performing Organization Address [facility] [place] [address] * Tacrolimus level, random (12/08/2017 9:01 AM CITY CONTROLLER) Tacrolimus, random 10.6 ng/mL [facility] Comment: Interpretive Data Testing performed by liquid chromatography-tandem mass spectrometry (LC- MS/MS).This test was developed using an analyte specific reagent. Its performance characteristics were determined by the [facility] in a manner consistent with CLIA requirements. ??This test has not been cleared or approved by the U.S. Food and Drug Administration. Current interpretive data was last revised on 2016. Blood specimen (specimen) 12/08/2017 9:01 AM CITY CONTROLLER 12/08/2017 9:28 AM CITY CONTROLLER Narrative [facility] - 12/08/2017 1:17 PM CITY CONTROLLER Sharon Eid MD LAB BLOOD ORDERABLES Final R esult Performing Organization Address [facility] Co de Phone Number [facility] [place] [address] * Potassium, Whole Blood (12/08/2017 9:01 AM CITY CONTROLLER) [facility] Potassium, bld 4.4 3.3 - 4.9 mmol/L [facility] Blood specimen (specimen) 12/08/2017 9:01 AM CITY CONTROLLER 12/08/2017 9:17 AM CITY CONTROLLER Narrative [facility] - 12/08/2017 9:20 AM CITY CONTROLLER us Sharon Eid MD LAB BLOOD ORDERABLES Final R esult Performing Organization Address [facility]/ZIP Co de Phone Number [facility] [place] [address] * (ABNORMAL) Gamma GT (12/08/2017 3:42 AM CITY CONTROLLER) [facility] GGT 489(H) 10 - 50 Units/L [facility] Blood specimen (specimen) 12/08/2017 3:42 AM CITY CONTROLLER 12/08/2017 5:01 AM CITY CONTROLLER Narrative [facility] - 12/08/2017 4:14 PM CITY CONTROLLER us Michael Perrin MD LAB BLOOD ORDERABLES Final Result Performing Organization Address [facility]/ZIP Co de Phone Number [facility] Department [place] [address] * (ABNORMAL) Morphology exam (12/08/2017 3:42 AM CITY CONTROLLER) [facility] Neutrophils 45.2 % [facility] Lymphocytes 32.2 % [facility] Monos 19.1 % [facility] Eosinophils 0.9 % [facility] Basophil pct 2.6 % [facility] Platelet estimate Adequate [facility] Anisocytosis 3+(A) [facility] Macrocytes > 15/HPF(A) [facility] WBC counted 115 Cells [facility] RBC morphology Present(A) [facility] Neutrophil abs 3.73 1.70 - 6.50 K/cumm [facility] Lymphs, abs 2.66 0.80 - 3.30 K/cumm [facility] Monos, abs 1.58(H) 0.20 - 0.80 K/cumm [facility] Eosinophils, abs 0.07 0.00 - 0.50 K/cumm [facility] Basophils, abs 0.21(H) 0.00 - 0.10 K/cumm [facility] Immature granulocyte, abs 0.00 0.00 - 0.10 K/cumm [facility] Blood specimen (specimen) 12/08/2017 3:42 AM CITY CONTROLLER 12/08/2017 4:59 AM CITY CONTROLLER Narrative [facility] - 12/08/2017 6:07 AM CITY CONTROLLER Michael Perrin MD LAB BLOOD ORDERABLES Final Result Performing Organization Address [facility] Co de Phone Number [facility] Department [place] [address] * (ABNORMAL) Hepatic function panel (12/08/2017 3:42 AM CITY CONTROLLER) AST 56(H) 10 - 50 Units/L [facility] ALT 36 7 - 55 Units/L [facility] Alk phos 711(H) 40 - 130 Units/L [facility] Bilirubin, total 0.4 0.1 - 1.2 mg/dL [facility] Bilirubin, direct 0.2 0.1 - 0.3 mg/dL [facility] Protein, pl 7.3 6.5 - 8.5 g/dL [facility] Albumin 2.5(L) 3.5 - 5.0 g/dL [facility] Blood specimen (specimen) 12/08/2017 3:42 AM CITY CONTROLLER 12/08/2017 5:01 AM CITY CONTROLLER Narrative [facility] - 12/08/2017 5:33 AM CITY CONTROLLER Michael Perrin MD LAB BLOOD ORDERABLES Final Result Performing Organization Address [facility]/ZIP Co de [facility] [place] [address] * (ABNORMAL) Basic metabolic panel (12/08/2017 3:42 AM CITY CONTROLLER) Sodium 134(L) 135 - 145 mmol/L [facility] Potassium, pl 5.6(H) 3.3 - 4.9 mmol/L [facility] Chloride 99 97 - 110 mmol/L [facility] CO2 29 22 - 32 mmol/L [facility] BUN 9 8 - 25 mg/dL [facility] Glucose 117 70 - 199 mg/dL [facility] Comment: Interpretive Data Fasting glucose >/= [...] interpretive data was last revised 2017. Creatinine 0.83 0.80 - 1.30 mg/dL [facility] Calcium 8.6 8.5 - 10.3 mg/dL [facility] Anion gap 6 2 - 15 mmol/L [facility] Blood specimen (specimen) 12/08/2017 3:42 AM CITY CONTROLLER 12/08/2017 5:01 AM CITY CONTROLLER Narrative [facility] - 12/08/2017 5:33 AM CITY CONTROLLER us Michael Perrin MD LAB BLOOD ORDERABLES Final Result [facility] Department [place] [address] * Magnesium (12/08/2017 3:42 AM CITY CONTROLLER) Magnesium 1.4 1.4 - 2.5 mg/dL [facility] Blood specimen (specimen) 12/08/2017 3:42 AM CITY CONTROLLER 12/08/2017 5:01 AM CITY CONTROLLER Narrative [facility] - 12/08/2017 5:33 AM CITY CONTROLLER Michael Perrin MD LAB BLOOD ORDERABLES Final Result Performing Organization Address [facility]/ZIP Co de Phone Number [facility] [place] [address] * Phosphorus (12/08/2017 3:42 AM CITY CONTROLLER) [facility] Phosphorus, pl 3.9 2.3 - 4.5 mg/dL [facility] Blood specimen (specimen) 12/08/2017 3:42 AM CITY CONTROLLER 12/08/2017 5:01 AM CITY CONTROLLER Narrative [facility] - 12/08/2017 5:33 AM CITY CONTROLLER Michale Perrin MD LAB BLOOD ORDERABLES Final Result Performing Organization Address [facility] Co de Phone Number [facility] [place] [address] * (ABNORMAL) CBC without differential (12/08/2017 3:42 AM CITY CONTROLLER) [facility] WBC 8.26 3.80 - 9.90 K/cumm [facility] RBC 2.89(L) 4.30 - 5.80 M/cumm [facility] Hgb 9.8(L) 13.0 - 17.5 g/dL [facility] Hct 28.9(L) 38.9 - 50.3 % [facility] MCV 100.0(H) 81.3 - 96.4 fL [facility] MCH 33.9(H) 27.1 - 33.3 pg [facility] MCHC 33.9 32.3 - 35.7 g/dL [facility] RDW CV 15.5(H) 11.1 - 14.9 % [facility] RDW SD 57.1(H) 35.7 - 48.1 fL [facility] NRBC 0.0 0.0 - 0.2 % [facility] NRBC abs 0.00 0.00 - 0.01 K/cumm [facility] Plt 244 150 - 400 K/cumm [facility] MPV 11.2 9.1 - 12.3 fL [facility] Blood specimen (specimen) 12/08/2017 3:42 AM CITY CONTROLLER 12/08/2017 4:59 AM CITY CONTROLLER Narrative [facility] - 12/08/2017 5:07 AM CITY CONTROLLER us Michael Perrin MD LAB BLOOD ORDERABLES Final Result Performing Organization Address [facility] Co de Phone Number [facility] Department [place] [address] * Glucose POC (12/07/2017 9:46 PM CITY CONTROLLER) Glucose, POC 176 70 - 199 mg/dL [facility] Blood specimen (specimen) 12/07/2017 9:46 PM CITY CONTROLLER 12/07/2017 9:46 PM CITY CONTROLLER Narrative [facility] - 12/07/2017 9:57 PM CITY CONTROLLER us Francis Park MD PhD POINT OF CARE TEST ORDER SUBHA Final Result Performing Organization Address [facility] Co de Phone Number [facility] [place] [address] * Glucose POC (12/07/2017 7:12 PM CITY CONTROLLER) Glucose, POC 163 70 - 199 mg/dL [facility] Blood specimen (specimen) 12/07/2017 7:12 PM CITY CONTROLLER 12/07/2017 7:12 PM CITY CONTROLLER Narrative [facility] - 12/07/2017 7:33 PM CITY CONTROLLER us Francis Park MD PhD POINT OF CARE TEST ORDER SUBHA Final Result Performing Organization Address [facility] Co de Phone Number [facility] [place] [address] * Glucose POC (12/07/2017 2:12 PM CITY CONTROLLER) [facility] Glucose, POC 158 70 - 199 mg/dL [facility] Glucose comment 1 RN Notified [facility] Blood specimen (specimen) 12/07/2017 2:12 PM CITY CONTROLLER 12/07/2017 2:12 PM CITY CONTROLLER Narrative [facility] - 12/07/2017 2:29 PM CITY CONTROLLER Francis Park MD PhD POINT OF CARE TEST ORDER SUBHA Final Result Performing Organization Address [facility] [place] [address] * Tacrolimus level, random (12/07/2017 9:53 AM CITY CONTROLLER) [facility] Tacrolimus, random 14.2 ng/mL [facility] Comment: Interpretive Data Testing performed by liquid chromatography-tandem mass spectrometry (LC- MS/MS).This test was developed using an analyte specific reagent. Its performance characteristics were determined by the [facility] in a manner consistent with CLIA requirements. ??This test has not been cleared or approved by the U.S. Food and Drug Administration. Current interpretive data was last revised on 2016. Blood specimen (specimen) 12/07/2017 9:53 AM CITY CONTROLLER 12/07/2017 10:23 AM CITY CONTROLLER Narrative [facility] - 12/07/2017 2:11 PM CITY CONTROLLER us Sharon Eid MD LAB BLOOD ORDERABLES Final R esult Performing Organization Address [facility] Co de Phone Number [facility] [place] [address] * (ABNORMAL) Potassium, Whole Blood (12/07/2017 9:53 AM CITY CONTROLLER) [facility] Potassium, bld 5.3(H) 3.3 - 4.9 mmol/L [facility] Blood specimen (specimen) 12/07/2017 9:53 AM CITY CONTROLLER 12/07/2017 10:19 AM CITY CONTROLLER Narrative [facility] - 12/07/2017 10:22 AM CITY CONTROLLER us Sharon Eid MD LAB BLOOD ORDERABLES Final R esult Performing Organization Address [facility] Co de Phone Number [facility] [place] [address] * Glucose POC (12/07/2017 7:38 AM CITY CONTROLLER) [facility] Glucose, POC 139 70 - 199 mg/dL [facility] Blood specimen (specimen) 12/07/2017 7:38 AM CITY CONTROLLER 12/07/2017 7:38 AM CITY CONTROLLER Narrative [facility] - 12/07/2017 7:58 AM CITY CONTROLLER us Francis Park MD PhD POINT OF CARE TEST ORDER SUBHA Final Result Performing Organization Address [facility] de Phone Number [facility] Department [place] [address] * (ABNORMAL) Hepatic function panel (12/07/2017 3:27 AM CITY CONTROLLER) [facility] AST 34 10 - 50 Units/L [facility] ALT 27 7 - 55 Units/L [facility] Alk phos 613(H) 40 - 130 Units/L [facility] Bilirubin, total 0.3 0.1 - 1.2 mg/dL [facility] Bilirubin, direct <0.2 0.1 - 0.3 mg/dL [facility] Protein, pl 6.7 6.5 - 8.5 g/dL [facility] Albumin 2.2(L) 3.5 - 5.0 g/dL [facility] Blood specimen (specimen) 12/07/2017 3:27 AM CITY CONTROLLER 12/07/2017 5:04 AM CITY CONTROLLER Narrative [facility] - 12/07/2017 6:27 AM CITY CONTROLLER Michael Perrin MD LAB BLOOD ORDERABLES Final Result [facility] [place] [address] * Magnesium (12/07/2017 3:27 AM CITY CONTROLLER) Magnesium 1.4 1.4 - 2.5 mg/dL [facility] Blood specimen (specimen) 12/07/2017 3:27 AM CITY CONTROLLER 12/07/2017 5:04 AM CITY CONTROLLER Narrative [facility] - 12/07/2017 6:27 AM CITY CONTROLLER Michael Perrin MD LAB BLOOD ORDERABLES Final Result Performing Organization Address [facility]/ZIP Co de Phone Number [facility] [place] [address] * Phosphorus (12/07/2017 3:27 AM CITY CONTROLLER) Phosphorus, pl 3.4 2.3 - 4.5 mg/dL [facility] Blood specimen (specimen) 12/07/2017 3:27 AM CITY CONTROLLER 12/07/2017 5:04 AM CITY CONTROLLER Narrative [facility] - 12/07/2017 6:27 AM CITY CONTROLLER Michael Perrin MD LAB BLOOD ORDERABLES Final Result Performing Organization Address [facility]/[place] [address] * (ABNORMAL) Morphology exam (12/07/2017 3:27 AM CITY CONTROLLER) Neutrophils 53.5 % [facility] Lymphocytes 28.1 % [facility] Monos 17.5 % [facility] Eosinophils 0.9 % [facility] Platelet estimate Adequate [facility] Anisocytosis 3+(A) [facility] Macrocytes > 15/HPF(A) [facility] WBC counted 114 Cells [facility] RBC morphology Present(A) [facility] Neutrophil abs 4.84 1.70 - 6.50 K/cumm [facility] Lymphs, abs 2.54 0.80 - 3.30 K/cumm [facility] Monos, abs 1.58(H) 0.20 - 0.80 K/cumm [facility] Eosinophils, abs 0.08 0.00 - 0.50 K/cumm [facility] Immature granulocyte, abs 0.00 0.00 - 0.10 K/cumm [facility] Blood specimen (specimen) 12/07/2017 3:27 AM CITY CONTROLLER 12/07/2017 5:03 AM CITY CONTROLLER Narrative [facility] - 12/07/2017 6:08 AM CITY CONTROLLER Michael Perrin MD LAB BLOOD ORDERABLES Final Result [facility] Department [place] [address] * (ABNORMAL) Basic metabolic panel (12/07/2017 3:27 AM CITY CONTROLLER) Sodium 131(L) 135 - 145 mmol/L [facility] Potassium, pl 5.3(H) 3.3 - 4.9 mmol/L [facility] Chloride 98 97 - 110 mmol/L [facility] CO2 29 22 - 32 mmol/L [facility] BUN 9 8 - 25 mg/dL [facility] Glucose 181 70 - 199 mg/dL [facility] Comment: Interpretive Data Fasting glucose >/= [...] interpretive data was last revised 2017. Creatinine 0.85 0.80 - 1.30 mg/dL [facility] Calcium 8.4(L) 8.5 - 10.3 mg/dL [facility] Anion gap 4 2 - 15 mmol/L [facility] Blood specimen (specimen) 12/07/2017 3:27 AM CITY CONTROLLER 12/07/2017 5:04 AM CITY CONTROLLER Narrative [facility] - 12/07/2017 5:47 AM CITY CONTROLLER us Michael Perrin MD LAB BLOOD ORDERABLES Final Result [facility] Department [place] [address] * (ABNORMAL) CBC without differential (12/07/2017 3:27 AM CITY CONTROLLER) WBC 9.05 3.80 - 9.90 K/cumm [facility] RBC 2.83(L) 4.30 - 5.80 M/cumm [facility] Hgb 9.7(L) 13.0 - 17.5 g/dL [facility] Hct 28.1(L) 38.9 - 50.3 % [facility] MCV 99.3(H) 81.3 - 96.4 fL [facility] MCH 34.3(H) 27.1 - 33.3 pg [facility] MCHC 34.5 32.3 - 35.7 g/dL [facility] RDW CV 15.7(H) 11.1 - 14.9 % [facility] RDW SD 57.0(H) 35.7 - 48.1 fL [facility] NRBC 0.0 0.0 - 0.2 % [facility] NRBC abs 0.00 0.00 - 0.01 K/cumm [facility] Plt 232 150 - 400 K/cumm [facility] MPV 11.1 9.1 - 12.3 fL [facility] Blood specimen (specimen) 12/07/2017 3:27 AM CITY CONTROLLER 12/07/2017 5:03 AM CITY CONTROLLER Narrative [facility] - 12/07/2017 5:17 AM CITY CONTROLLER us Michael Perrin MD LAB BLOOD ORDERABLES Final Result Performing Organization Address [facility]/[place] [address] * Glucose POC (12/06/2017 8:51 PM CITY CONTROLLER) Glucose, POC 154 70 - 199 mg/dL [facility] Blood specimen (specimen) 12/06/2017 8:51 PM CITY CONTROLLER 12/06/2017 8:51 PM CITY CONTROLLER Narrative [facility] - 12/07/2017 3:49 AM CITY CONTROLLER us Francis Park MD PhD POINT OF CARE TEST ORDER SUBHA Final Result Performing Organization Address [facility] [place] [address] * Glucose POC (12/06/2017 5:44 PM CITY CONTROLLER) Glucose, POC 84 70 - 199 mg/dL [facility] Blood specimen (specimen) 12/06/2017 5:44 PM CITY CONTROLLER 12/06/2017 5:44 PM CITY CONTROLLER Narrative [facility] - 12/06/2017 6:31 PM CITY CONTROLLER us Francis Park MD PhD POINT OF CARE TEST ORDER SUBHA Final Result Performing Organization Address [facility] [place] [address] * (ABNORMAL) Glucose POC (12/06/2017 2:05 PM CITY CONTROLLER) Glucose, POC 251(H) 70 - 199 mg/dL [facility] Blood specimen (specimen) 12/06/2017 2:05 PM CITY CONTROLLER 12/06/2017 2:05 PM CITY CONTROLLER Narrative [facility] - 12/06/2017 5:15 PM CITY CONTROLLER Francis Park MD PhD POINT OF CARE TEST ORDER SUBHA Final Result Performing Organization Address [facility] de Phone Number [facility] [place] [address] * Tacrolimus level, random (12/06/2017 1:22 PM CITY CONTROLLER) Tacrolimus, random 14.0 ng/mL [facility] Comment: Interpretive Data Testing performed by liquid chromatography-tandem mass spectrometry (LC- MS/MS).This test was developed using an analyte specific reagent. Its performance characteristics were determined by the [facility] in a manner consistent with CLIA requirements. ??This test has not been cleared or approved by the U.S. Food and Drug Administration. Current interpretive data was last revised on 2016. Blood specimen (specimen) 12/06/2017 1:22 PM CITY CONTROLLER 12/06/2017 2:30 PM CITY CONTROLLER Narrative [facility] - 12/07/2017 4:22 AM CITY CONTROLLER us Sharon Eid MD LAB BLOOD ORDERABLES Final R esult Performing Organization Address [facility] de Phone Number [facility] [place] [address] * (ABNORMAL) Potassium, Whole Blood (12/06/2017 9:02 AM CITY CONTROLLER) Potassium, bld 5.0(H) 3.3 - 4.9 mmol/L [facility] Blood specimen (specimen) 12/06/2017 9:02 AM CITY CONTROLLER 12/06/2017 9:18 AM CITY CONTROLLER Narrative [facility] - 12/06/2017 9:21 AM CITY CONTROLLER us Sharon Eid MD LAB BLOOD ORDERABLES Final R esult [facility] [place] [address] * Glucose POC (12/06/2017 8:45 AM CITY CONTROLLER) Pathologist [facility] [place] Glucose, POC 140 70 - 199 mg/dL [facility] Blood specimen (specimen) 12/06/2017 8:45 AM CITY CONTROLLER 12/06/2017 8:45 AM CITY CONTROLLER Narrative [facility] - 12/06/2017 8:59 AM CITY CONTROLLER us Francis Park MD PhD POINT OF CARE TEST ORDER SUBHA Final Result Performing Organization Address [facility] de Phone Number [facility] [place] [address] * (ABNORMAL) Morphology exam (12/06/2017 1:25 AM CITY CONTROLLER) [facility] Neutrophils 50.9 % [facility] Lymphocytes 33.9 % [facility] Monos 13.4 % [facility] Eosinophils 0.9 % [facility] Basophil pct 0.9 % [facility] Platelet estimate Adequate [facility] Anisocytosis 3+(A) [facility] Macrocytes 8-15/HPF(A) [facility] Target cells 3-7/HPF(A) [facility] WBC counted 112 Cells [facility] RBC morphology Present(A) [facility] Neutrophil abs 5.01 1.70 - 6.50 K/cumm [facility] Lymphs, abs 3.34(H) 0.80 - 3.30 K/cumm [facility] Monos, abs 1.32(H) 0.20 - 0.80 K/cumm [facility] Eosinophils, abs 0.09 0.00 - 0.50 K/cumm [facility] Basophils, abs 0.09 0.00 - 0.10 K/cumm [facility] Immature granulocyte, abs 0.00 0.00 - 0.10 K/cumm [facility] Blood specimen (specimen) 12/06/2017 1:25 AM CITY CONTROLLER 12/06/2017 2:50 AM CITY CONTROLLER Narrative [facility] - 12/06/2017 4:01 AM CITY CONTROLLER us Michael Perrin MD LAB BLOOD ORDERABLES Final Result Performing Organization Address [facility] Co de Phone Number [facility] [place] [address] * (ABNORMAL) Hepatic function panel (12/06/2017 1:25 AM CITY CONTROLLER) AST 40 10 - 50 Units/L [facility] ALT 28 7 - 55 Units/L [facility] Alk phos 673(H) 40 - 130 Units/L [facility] Bilirubin, total 0.3 0.1 - 1.2 mg/dL [facility] Bilirubin, direct <0.2 0.1 - 0.3 mg/dL [facility] Protein, pl 6.7 6.5 - 8.5 g/dL [facility] Albumin 2.3(L) 3.5 - 5.0 g/dL [facility] Blood specimen (specimen) 12/06/2017 1:25 AM CITY CONTROLLER 12/06/2017 2:42 AM CITY CONTROLLER Narrative [facility] - 12/06/2017 3:21 AM CITY CONTROLLER us Sharon Eid MD LAB BLOOD ORDERABLES Final R esult Performing Organization Address [facility]/ZIP Co de Phone Number [facility] [place] [address] * (ABNORMAL) Basic metabolic panel (12/06/2017 1:25 AM CITY CONTROLLER) Sodium 131(L) 135 - 145 mmol/L [facility] Potassium, pl 5.3(H) 3.3 - 4.9 mmol/L [facility] Chloride 100 97 - 110 mmol/L [facility] CO2 27 22 - 32 mmol/L [facility] BUN 10 8 - 25 mg/dL [facility] Glucose 162 70 - 199 mg/dL [facility] Comment: Interpretive Data Fasting glucose >/= [...] interpretive data was last revised 2017. Creatinine 0.94 0.80 - 1.30 mg/dL [facility] Calcium 8.5 8.5 - 10.3 mg/dL [facility] Anion gap 4 2 - 15 mmol/L [facility] Blood specimen (specimen) 12/06/2017 1:25 AM CITY CONTROLLER 12/06/2017 2:42 AM CITY CONTROLLER Narrative [facility] - 12/06/2017 3:21 AM CITY CONTROLLER us Sharon Eid MD LAB BLOOD ORDERABLES Final R esult [facility] Department [place] [address] * (ABNORMAL) Heparin anti factor Xa activity (12/06/2017 1:25 AM CITY CONTROLLER) Anti Factor Xa 0.85(H) 0.30 - 0.70 IUnits/mL [facility] Comment: Interpretive Data Unfractionated Heparin (UFH)Therapeutic range: 0.3-0.7 IUnits/ml Low molecular weight heparin therapeutic guidelines* 1.VTE prevention 0.1 - 0.2 IUnits/ml 2.VTE treatment without renal impairment Q 12 hour dosing 0.6 - 1.0 IUnits/ml Q 24 hour dosing 1.0 - 2.0 IUnits/ml 3.VTE treatment with renal impairment (Creatinine Clearance Rate <30 ml/min) Q 24 hour dosing 0.6 - 1.0 IUnits/ml *Collect blood 4 hours after last subcutaneous injection Current interpretive data was last revised on 2011. Blood specimen (specimen) 12/06/2017 1:25 AM CITY CONTROLLER 12/06/2017 2:41 AM CITY CONTROLLER Narrative [facility] - 12/06/2017 2:59 AM CITY CONTROLLER us Sharon Eid MD LAB BLOOD ORDERABLES Final R esult [facility] Department [place] [address] * (ABNORMAL) CBC without differential (12/06/2017 1:25 AM CITY CONTROLLER) WBC 9.84 3.80 - 9.90 K/cumm [facility] RBC 2.95(L) 4.30 - 5.80 M/cumm [facility] Hgb 10.0(L) 13.0 - 17.5 g/dL [facility] Hct 29.5(L) 38.9 - 50.3 % [facility] MCV 100.0(H) 81.3 - 96.4 fL [facility] MCH 33.9(H) 27.1 - 33.3 pg [facility] MCHC 33.9 32.3 - 35.7 g/dL [facility] RDW CV 15.8(H) 11.1 - 14.9 % [facility] RDW SD 58.2(H) 35.7 - 48.1 fL [facility] NRBC 0.0 0.0 - 0.2 % [facility] NRBC abs 0.00 0.00 - 0.01 K/cumm [facility] Plt 234 150 - 400 K/cumm [facility] MPV 11.3 9.1 - 12.3 fL [facility] Blood specimen (specimen) 12/06/2017 1:25 AM CITY CONTROLLER 12/06/2017 2:50 AM CITY CONTROLLER Narrative [facility] - 12/06/2017 2:57 AM CITY CONTROLLER us Michael Perrin MD LAB BLOOD ORDERABLES Final Result Performing Organization Address [facility] [place] [address] * Glucose POC (12/05/2017 8:55 PM CITY CONTROLLER) Glucose, POC 129 70 - 199 mg/dL [facility] Blood specimen (specimen) 12/05/2017 8:55 PM CITY CONTROLLER 12/05/2017 8:55 PM CITY CONTROLLER Narrative [facility] - 12/05/2017 9:07 PM CITY CONTROLLER us Francis Park MD PhD POINT OF CARE TEST ORDER SUBHA Final Result Performing Organization Address [facility] de Phone Number [facility] [place] [address] * (ABNORMAL) Glucose POC (12/05/2017 6:36 PM CITY CONTROLLER) Glucose, POC 219(H) 70 - 199 mg/dL [facility] Blood specimen (specimen) 12/05/2017 6:36 PM CITY CONTROLLER 12/05/2017 6:36 PM CITY CONTROLLER Narrative [facility] - 12/05/2017 6:57 PM CITY CONTROLLER us Francis Park MD PhD POINT OF CARE TEST ORDER SUBHA Final Result Performing Organization Address [facility] de Phone Number [facility] [place] [address] * Glucose POC (12/05/2017 1:05 PM CITY CONTROLLER) Glucose, POC 92 70 - 199 mg/dL [facility] Blood specimen (specimen) 12/05/2017 1:05 PM CITY CONTROLLER 12/05/2017 1:05 PM CITY CONTROLLER Narrative [facility] - 12/05/2017 1:19 PM CITY CONTROLLER us Francis Park MD PhD POINT OF CARE TEST ORDER SUBHA Final Result [facility] Department [place] [address] * XR Chest 1 Vw (12/05/2017 12:07 PM CITY CONTROLLER) Anatomical Region Laterality Modality Body, Chest N/A Radiographic Tiffany ging 12/05/2017 12:0 7 PM CITY CONTROLLER Narrative 12/05/2017 1:23 PM CITY CONTROLLER RANJAN BOWMAN M.D. FINAL REPORT ACC# ??Date Time ??Exam [id number] Dec 05, 2017 06:07:00 [id number] Chest 1 view Frontal EXAMINATION: ??1 view chest radiograph IMPRESSION: ??Comparison is made to 12/04/2017. ??Left peripherally inserted central catheter either loops in the superior vena cava or has its tip in the azygos vein. There is a stable small right pleural effusion. ??There has been interval increase in airspace opacification of the right base which is concerning for pneumonia. ??Atelectasis at the left base is also slightly increased. ??No pneumothorax. Electronically signed by: Ranjan Bowman M.D. Requested By: IDA ORO ??MLexii Dictated By: ?? RANJAN BOWMAN M.D. ??on Dec 05 2017 ??7:21A This document has been electronically signed by: RANJAN BOWMAN M.D. on Dec 05 2017 ??7:21A [id number] BOWMAN M.D. FINAL REPORT Attending: ??MARCELINA, ??SOURAV Requesting: ??PREETHI, ??IDA Requesting Fax: ?? Attending Fax: ?? Attending ID: ??[id number] Requesting ID: ??[id number] Report To 1 ID: ??[id number] ? Report To 1 Name: ??, ?? Report To 1 FAX: ?? NextGen Order #: ?? Procedure Note Miscellaneous, Not In File - 12/05/2017 RANJAN BOWMAN M.D. FINAL REPORT ACC# Date Time Exam [id number] Dec 05, 2017 06:07:00 [id number] Chest 1 view Frontal EXAMINATION: 1 view chest radiograph IMPRESSION: Comparison is made to 12/04/2017. Left peripherally inserted central catheter either loops in the superior vena cava or has its tip in the azygos vein. There is a stable small right pleural effusion. There has been interval increase in airspace opacification of the right base which is concerning for pneumonia. Atelectasis at the left base is also slightly increased. No pneumothorax. Electronically signed by: Ranjan Bowman M.D. Requested By: IDA ORO M.D. Dictated By: RANJAN BOWMAN M.D. on Dec 05 2017 7:21A This document has been electronically signed by: RANJAN BOWMAN M.D. on Dec 05 2017 7:21A [id number] BOWMAN M.D. FINAL REPORT Attending: SOURAV CALLEJAS Requesting: IDA ORO Requesting Fax: Attending Fax: Attending ID: [id number] Requesting ID: [id number] Report To 1 ID: [id number] Report To 1 Name: , Report To 1 FAX: NextGen Order #: Ida Oro MD IMG XR PROCEDURES Edited Res ult - Final * Tacrolimus level trough (12/05/2017 9:30 AM CITY CONTROLLER) Tacrolimus, trough 15.7 ng/mL [facility] Comment: Interpretive Data The therapeutic range for tacrolimus can vary by transplant organ type and sample timing but a trough range of 5 - 15 ng/mL is typical. Testing performed by liquid chromatography-tandem mass spectrometry (LC- MS/MS).This test was developed using an analyte specific reagent. Its performance characteristics were determined by the [facility] in a manner consistent with CLIA requirements. This test has not been cleared or approved by the U.S. Food and Drug Administration. Current interpretive data was last revised on 2016. Blood specimen (specimen) 12/05/2017 9:30 AM CITY CONTROLLER 12/05/2017 10:21 AM CITY CONTROLLER Narrative [facility] - 12/05/2017 3:42 PM CITY CONTROLLER us Sharon Eid MD LAB BLOOD ORDERABLES Final R esult Performing Organization Address [facility] Co de Phone Number [facility] [place] [address] * Glucose POC (12/05/2017 9:16 AM CITY CONTROLLER) Glucose, POC 187 70 - 199 mg/dL [facility] Blood specimen (specimen) 12/05/2017 9:16 AM CITY CONTROLLER 12/05/2017 9:16 AM CITY CONTROLLER Narrative [facility] - 12/05/2017 9:38 AM CITY CONTROLLER us Francis Park MD PhD POINT OF CARE TEST ORDER SUBHA Final Result Performing Organization Address [facility] [place] [address] * (ABNORMAL) Gamma GT (12/05/2017 5:59 AM CITY CONTROLLER) GGT 330(H) 10 - 50 Units/L [facility] Blood specimen (specimen) 12/05/2017 5:59 AM CITY CONTROLLER 12/05/2017 6:41 AM CITY CONTROLLER Narrative [facility] - 12/05/2017 9:01 AM CITY CONTROLLER us Michael Perrin MD LAB BLOOD ORDERABLES Final Result Performing Organization Address [facility] Co de Phone Number [facility] [place] [address] * Type and screen (12/05/2017 5:59 AM CITY CONTROLLER) ABO Rh A Positive [facility] Ursula, indirect Negative [facility] Blood specimen (specimen) 12/05/2017 5:59 AM CITY CONTROLLER 12/05/2017 6:39 AM CITY CONTROLLER Narrative [facility] - 12/05/2017 8:13 AM CITY CONTROLLER us Michael Perrin MD LAB BLOOD BANK TEST ORDERAB LES Final Result [facility] Department [place] [address] * (ABNORMAL) Comprehensive metabolic panel (12/05/2017 5:59 AM CITY CONTROLLER) Pathologist [facility] [place] Sodium 133(L) 135 - 145 mmol/L [facility] Potassium, pl 5.0(H) 3.3 - 4.9 mmol/L [facility] CO2 28 22 - 32 mmol/L [facility] BUN 7(L) 8 - 25 mg/dL [facility] Glucose 207(H) 70 - 199 mg/dL [facility] Comment: Interpretive Data Fasting glucose >/= [...] interpretive data was last revised 2017. Creatinine 0.78(L) 0.80 - 1.30 mg/dL [facility] Calcium 8.0(L) 8.5 - 10.3 mg/dL [facility] Chloride 101 97 - 110 mmol/L [facility] Albumin 2.2(L) 3.5 - 5.0 g/dL [facility] AST 25 10 - 50 Units/L [facility] ALT 21 7 - 55 Units/L [facility] Alk phos 567(H) 40 - 130 Units/L [facility] Bilirubin, total 0.3 0.1 - 1.2 mg/dL [facility] Protein, pl 6.2(L) 6.5 - 8.5 g/dL [facility] Anion gap 4 2 - 15 mmol/L [facility] Blood specimen (specimen) 12/05/2017 5:59 AM CITY CONTROLLER 12/05/2017 6:41 AM CITY CONTROLLER Narrative [facility] - 12/05/2017 7:46 AM CITY CONTROLLER us Michael Perrin MD LAB BLOOD ORDERABLES Final Result Performing Organization Address [facility]/ZIP Co de Phone Number [facility] [place] [address] * Phosphorus (12/05/2017 5:59 AM CITY CONTROLLER) Pathologist [facility] [place] Phosphorus, pl 3.0 2.3 - 4.5 mg/dL [facility] Blood specimen (specimen) 12/05/2017 5:59 AM CITY CONTROLLER 12/05/2017 6:41 AM CITY CONTROLLER Narrative [facility] - 12/05/2017 7:46 AM CITY CONTROLLER us Michael Perrin MD LAB BLOOD ORDERABLES Final Result Performing Organization Address [facility] Co de Phone Number [facility] [place] [address] * (ABNORMAL) Morphology exam (12/05/2017 5:59 AM CITY CONTROLLER) Neutrophils 66.4 % [facility] Lymphocytes 15.0 % [facility] Monos 18.6 % [facility] Platelet estimate Adequate [facility] Anisocytosis 2+(A) [facility] Microcytes 3-7/HPF(A) [facility] Macrocytes 3-7/HPF(A) [facility] Polychromasia 3-7/HPF(A) [facility] Target cells 3-7/HPF(A) [facility] Schistocytes 1-2/HPF(A) [facility] Acanthocytes 3-7/HPF(A) [facility] Echinocytes Present(A) [facility] WBC counted 113 Cells [facility] RBC morphology Present(A) [facility] Neutrophil abs 5.75 1.70 - 6.50 K/cumm [facility] Lymphs, abs 1.30 0.80 - 3.30 K/cumm [facility] Monos, abs 1.61(H) 0.20 - 0.80 K/cumm [facility] Immature granulocyte, abs 0.00 0.00 - 0.10 K/cumm [facility] Morphology scrn See Comment [facility] Comment:PLT: Giant platelets present Blood specimen (specimen) 12/05/2017 5:59 AM CITY CONTROLLER 12/05/2017 6:40 AM CITY CONTROLLER Narrative [facility] - 12/05/2017 7:23 AM CITY CONTROLLER Michael Perrin MD LAB BLOOD ORDERABLES Final Result Performing Organization Address City/[facility]/ZIP Co de Phone Number [facility] [place] [address] * Magnesium (12/05/2017 5:59 AM CITY CONTROLLER) Pathologist [facility] [place] Magnesium 1.6 1.4 - 2.5 mg/dL [facility] Blood specimen (specimen) 12/05/2017 5:59 AM CITY CONTROLLER 12/05/2017 6:41 AM CITY CONTROLLER Narrative [facility] - 12/05/2017 7:08 AM CITY CONTROLLER Michael Perrin MD LAB BLOOD ORDERABLES Final Result Performing Organization Address [facility] Co de Phone Number [facility] [place] [address] * Lactate dehydrogenase (LD) (12/05/2017 5:59 AM CITY CONTROLLER) Lactate dehydrogenase (LDH) 226 100 - 250 Units/L [facility] Blood specimen (specimen) 12/05/2017 5:59 AM CITY CONTROLLER 12/05/2017 6:41 AM CITY CONTROLLER Narrative [facility] - 12/05/2017 7:08 AM CITY CONTROLLER us Michael Perrin MD LAB BLOOD ORDERABLES Final Result [facility] [place] [address] * (ABNORMAL) CBC without differential (12/05/2017 5:59 AM CITY CONTROLLER) Pathologist [facility] [place] WBC 8.66 3.80 - 9.90 K/cumm [facility] RBC 2.91(L) 4.30 - 5.80 M/cumm [facility] Hgb 9.9(L) 13.0 - 17.5 g/dL [facility] Hct 29.3(L) 38.9 - 50.3 % [facility] MCV 100.7(H) 81.3 - 96.4 fL [facility] MCH 34.0(H) 27.1 - 33.3 pg [facility] MCHC 33.8 32.3 - 35.7 g/dL [facility] RDW CV 16.0(H) 11.1 - 14.9 % [facility] RDW SD 58.9(H) 35.7 - 48.1 fL [facility] NRBC 0.0 0.0 - 0.2 % [facility] NRBC abs 0.00 0.00 - 0.01 K/cumm [facility] Plt 216 150 - 400 K/cumm [facility] MPV 11.3 9.1 - 12.3 fL [facility] Blood specimen (specimen) 12/05/2017 5:59 AM CITY CONTROLLER 12/05/2017 6:40 AM CITY CONTROLLER Narrative [facility] - 12/05/2017 6:47 AM CITY CONTROLLER us Michael Perrin MD LAB BLOOD ORDERABLES Final Result [facility] [place] [address] * Glucose POC (12/04/2017 8:34 PM CITY CONTROLLER) Glucose, POC 100 70 - 199 mg/dL [facility] Blood specimen (specimen) 12/04/2017 8:34 PM CITY CONTROLLER 12/04/2017 8:34 PM CITY CONTROLLER Narrative [facility] - 12/04/2017 8:58 PM CITY CONTROLLER us Francis Park MD PhD POINT OF CARE TEST ORDER SUBHA Final Result [facility] [place] [address] * XR Chest 1 Vw (12/04/2017 4:23 PM CITY CONTROLLER) Anatomical Region Laterality Modality Body, Chest N/A Radiographic Tiffany ging 12/04/2017 4:23 PM CITY CONTROLLER Narrative 12/04/2017 6:31 PM CITY CONTROLLER BRITNI FARMER M.D. FINAL REPORT ACC# ??Date Time ??Exam [id number] Dec 04, 2017 10:23:00 [id number] Chest 1 view Frontal EXAMINATION: ??1 view chest radiograph IMPRESSION: ??Comparison made to a prior imaging from 12/03/2017. Patient is status post right thoracentesis. Left peripherally inserted central venous catheter with tip in the superior vena cava with tip in the region of the superior cavoatrial junction. No pneumothorax seen. Slight interval decrease in the right pleural effusion which is small to moderate in size with associated atelectasis. The small left pleural effusion is unchanged with the mild associated atelectasis. Interstitial opacities in the right lung are similar to prior imaging with mild nodularity consistent with the patient's pneumonia seen on CT from 12/01/2017. Unchanged apical emphysematous changes. The cardiomediastinal silhouette is stable. This report was telephoned by Dr. Farmer to Dr. Abdalla on 12/04/2017 12:28 PM. Electronically signed by: Britni Farmer M.D. PHD Requested By: RUBEN ABDALLA ??Toño Dictated By: ?? BRITNI FARMER M.D. ??on Dec 04 2017 12:29P This document has been electronically signed by: BRITNI FARMER M.D. on Dec 04 2017 12:29P BRITNI FARMER M.D. FINAL REPORT Attending: ??MARCELINA, ??SOURAV Requesting: ??RYAN, ??RUBEN Requesting Fax: ?? Attending Fax: ?? Attending ID: ??[id number] Requesting ID: ??[id number] Report To 1 ID: ??[id number] ? Report To 1 Name: ??, ?? Report To 1 FAX: ?? NextGen Order #: ?? Procedure Note Miscellaneous, Not In File - 12/04/2017 BRITNI FARMER M.D. FINAL REPORT ACC# Date Time Exam [id number] Dec 04, 2017 10:23:00 [id number] Chest 1 view Frontal EXAMINATION: 1 view chest radiograph IMPRESSION: Comparison made to a prior imaging from 12/03/2017. Patient is status post right thoracentesis. Left peripherally inserted central venous catheter with tip in the superior vena cava with tip in the region of the superior cavoatrial junction. No pneumothorax seen. Slight interval decrease in the right pleural effusion which is small to moderate in size with associated atelectasis. The small left pleural effusion is unchanged with the mild associated atelectasis. Interstitial opacities in the right lung are similar to prior imaging with mild nodularity consistent with the patient's pneumonia seen on CT from 12/01/2017. Unchanged apical emphysematous changes. The cardiomediastinal silhouette is stable. This report was telephoned by Dr. Farmer to Dr. Abdalla on 12/04/2017 12:28 PM. Electronically signed by: Britni Farmer M.D. PHD Requested By: RUBEN ABDALLA M.D. Dictated By: BRITNI FARMER M.D. on Dec 04 2017 12:29P This document has been electronically signed by: BRITNI FARMER M.D. on Dec 04 2017 12:29P BRITNI FARMER M.D. FINAL REPORT Attending: SOURAV CALLEJAS Requesting: RUBEN ABDALLA Requesting Fax: Attending Fax: Attending ID: [id number] Requesting ID: [id number] Report To 1 ID: [id number] Report To 1 Name: , Report To 1 FAX: NextGen Order #: us Ruben Abdalla MD PhD IMG XR PROCEDURES Final Result * US Guided Thoracentesis (12/04/2017 4:21 PM CITY CONTROLLER) Anatomical Region Laterality Modality Chest N/A Ultrasound 12/04/2017 4:21 PM CITY CONTROLLER Narrative 12/04/2017 10:25 PM CITY CONTROLLER Toño LEPE M.D. FINAL REPORT The radiology attending physician has personally reviewed this study, and has reviewed and/or edited this written report and agrees with it. 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 ?? COMPARISON: ??Chest radiograph dated 12/03/2017. ??chest CT dated 12/01/2017. FINDINGS: ??Focused evaluation of the posterior right chest demonstrates a large amount of pleural fluid. The right chest wall was marked for thoracentesis with ultrasound guidance. TECHNIQUE: ??The procedure and its benefits and risks were explained to the patient. The potential risks included but were not limited to pneumothorax potentially requiring chest tube placement, bleeding, infection, and injury to adjacent organs. The patient verbally acknowledged understanding and desire to proceed, and signed the written consent form. The patient's overlying skin was prepped and draped in the usual sterile fashion. Local anesthesia was achieved via subcutaneous and deep administration with 10 mL of Lidocaine 1%. A 5 Fr one-step catheter was advanced into the pleural cavity and the needle was removed. Appropriate catheter location was documented with continuous sonographic guidance. 1 L of light brown fluid was obtained, approximately 200 cc of which were sent for laboratory analysis. The patient's skin was cleaned and dressed. ??The patient tolerated the procedure well and was discharged from the department in good condition. The chest radiograph obtained immediately following the procedure showed no pneumothorax. Dr. Dalia Abdalla was present from the beginning to the end of the procedure. Dr. Ruben Abdalla performed the thoracentesis. IMPRESSION: ??Successful ultrasound-guided diagnostic and therapeutic right thoracentesis. Electronically signed by: Dalia Abdalla M.D. Requested By: SHARON EID M.D. Dictated By: ?? RUBEN ABDALLA M.D. ??on Dec 04 2017 ??1:22P This document has been electronically signed by: DALIA ABDALLA M.D. on Dec 04 2017 ??4:23P [id number] LEPE M.D. FINAL REPORT The radiology attending physician has personally reviewed this study, and has reviewed and/or edited this written report and agrees with it. Attending: ??MARCELINA, ??SOURAV Requesting: ??CELESTE, ??SHARON Requesting Fax: ?? Attending Fax: ?? Attending ID: ??[id number] Requesting ID: ??[id number] Report To 1 ID: ??[id number] ? Report To 1 Name: ??, ?? Report To 1 FAX: ?? NextGen Order #: ?? Procedure Note Miscellaneous, Not In File - 12/04/2017 Toño LEPE M.D. FINAL REPORT The radiology attending physician has personally reviewed this study, and has reviewed and/or edited this written report and agrees with it. 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 COMPARISON: Chest radiograph dated 12/03/2017. chest CT dated 12/01/2017. FINDINGS: Focused evaluation of the posterior right chest demonstrates a large amount of pleural fluid. The right chest wall was marked for thoracentesis with ultrasound guidance. TECHNIQUE: The procedure and its benefits and risks were explained to the patient. The potential risks included but were not limited to pneumothorax potentially requiring chest tube placement, bleeding, infection, and injury to adjacent organs. The patient verbally acknowledged understanding and desire to proceed, and signed the written consent form. The patient's overlying skin was prepped and draped in the usual sterile fashion. Local anesthesia was achieved via subcutaneous and deep administration with 10 mL of Lidocaine 1%. A 5 Fr one-step catheter was advanced into the pleural cavity and the needle was removed. Appropriate catheter location was documented with continuous sonographic guidance. 1 L of light brown fluid was obtained, approximately 200 cc of which were sent for laboratory analysis. The patient's skin was cleaned and dressed. The patient tolerated the procedure well and was discharged from the department in good condition. The chest radiograph obtained immediately following the procedure showed no pneumothorax. Dr. Dalia Abdalla was present from the beginning to the end of the procedure. Dr. Ruben Abdalla performed the thoracentesis. IMPRESSION: Successful ultrasound-guided diagnostic and therapeutic right thoracentesis. Electronically signed by: Dalia Abdalla M.D. Requested By: SHARON EID M.D. Dictated By: RUBEN ABDALLA M.D. on Dec 04 2017 1:22P This document has been electronically signed by: DALIA ABDALLA M.D. on Dec 04 2017 4:23P [id number] ZAIDI M.D. FINAL REPORT The radiology attending physician has personally reviewed this study, and has reviewed and/or edited this written report and agrees with it. Attending: SOURAV CALLEJAS Requesting: SHARON EID Requesting Fax: Attending Fax: Attending ID: [id number] Requesting ID: [id number] Report To 1 ID: [id number] Report To 1 Name: , Report To 1 FAX: NextGen Order #: us Sharon Eid MD IM US PROCEDURES Final Resu lt * (ABNORMAL) Glucose POC (12/04/2017 4:19 PM CITY CONTROLLER) Glucose, POC 251(H) 70 - 199 mg/dL [facility] Blood specimen (specimen) 12/04/2017 4:19 PM CITY CONTROLLER 12/04/2017 4:19 PM CITY CONTROLLER Narrative [facility] - 12/04/2017 5:01 PM CITY CONTROLLER us Francis Park MD PhD POINT OF CARE TEST ORDER SUBHA Final Result Performing Organization Address City/[facility] Co de Phone Number [facility] [place] [address] * Glucose POC (12/04/2017 11:41 AM CITY CONTROLLER) Glucose, POC 113 70 - 199 mg/dL [facility] Blood specimen (specimen) 12/04/2017 11:41 AM CITY CONTROLLER 12/04/2017 11:41 AM CITY CONTROLLER Narrative [facility] - 12/04/2017 12:00 PM CITY CONTROLLER Francis Park MD PhD POINT OF CARE TEST ORDER SUBHA Final Result Performing Organization Address [facility] de Phone Number [facility] [place] [address] * Surgical pathology (12/04/2017 9:36 AM CITY CONTROLLER) 12/04/2017 9:36 AM CITY CONTROLLER 12/04/2017 12:14 PM CITY CONTROLLER Narrative 12/06/2017 2:53 PM CITY CONTROLLER [facility] Johnathon Jaramillo [facility] [place] [address] SURGICAL PATHOLOGY REPORT FINAL Patient Name: BRI JONES ? Address: [address] [facility] ??Service: ??Hematology/Oncology ??SARAH SMITH ??[id number] ??Location: ??[facility] 6900 Taken: 12/04/2017 Gender: M ?? Received: 12/04/2017 : 1965 (Age: 52) ??Hospital #: ??[id number] Accessioned: 12/04/2017 ?Patient Type: ??[facility] Inpatient Reported: 12/06/2017 ? Physician(s): Francis Park M.D. ? Diagnosis: Pleural fluids, sites not specified, thoracentesis, morphological review and flow cytometry - ?Mixed inflammatory cells, favor reactive - ? No blasts detected by morphology or flow cytometry - ? See comment mw/12/05/2017 10:15 By this signature, I attest that the above diagnosis is based upon my personal examination of the slides(and/or other material indicated in the diagnosis). ?? Eugene Clinton M.D. ??Report Electronically Reviewed and Signed Out By ??Eugene Clinton M.D. 12/06/2017 14:53:19 Microscopic Description and Comment: The cytospin associated with the flow cytometry pleural fluid specimen shows mixed inflammatory cells including macrophage, small lymphocytes, eosinophils and a few mesothelial cells. ??No blasts are identified. ?? Flow cytometric analysis performed on the peripheral fluid shows that the blast gated events account for less than 1% of overall cellularity. ??Monocyte gated events account for 18% of overall cellularity and are positive for CD33, CD64, CD14, and CD11b and prominently negative for CD34, CD117 and CD123. ?Abhijeet Abdalla MD, PhD ?History: The patient is a 52 years old male with history of acute myeloid leukemia, status post stem cell transplant. ??He presents as septic shock and acute respiratory failure. Specimen(s) Received: A: Fluid for flow cytometry, Pleural effusion Gross Description: { Not Entered } ?Abhijeet Abdalla MD, PhD ? By this signature, I attest that the above diagnosis is based upon my personal examination of the slides(and/or other material). ?? Surgical Pathology report is available electronically in Clinical Desktop. The performance characteristics of some immunohistochemical stains, fluorescence in-situ hybridization tests and immunophenotyping by flow cytometry cited in this report (if any) were determined by the Surgical Pathology Department at [facility] as part of an ongoing manager quality compliance program and in compliance with federally mandated [...] performance characteristics determined by the Surgical Pathology Department of [facility]. ??It has not been cleared or approved by the U. S. Food and Drug Administration. Francis Park MD PhD LAB PATHOLOGY ORDERABLES Final Result * Leukemia/lymphoma studies (12/04/2017 9:36 AM CITY CONTROLLER) Metamyelocyte , Bone Marrow Test Completed [facility] CD 14 Test Completed [facility] CD 33 Test Completed [facility] CD 34 Test Completed [facility] CD 45 Test Completed [facility] CD 64 Test Completed [facility] CD 117 Test Completed [facility] CD 123 Test Completed [facility] Red Stain Test Completed [facility] Leukemia/Lymp gita Result See separate Surgical Pathology report. [facility] Body fluid 12/04/2017 9:36 AM CITY CONTROLLER 12/04/2017 12:12 PM CITY CONTROLLER Narrative [facility] - 12/04/2017 8:49 PM CITY CONTROLLER Francis Park MD PhD LAB BLOOD ORDERABLES Fin al Result [facility]a [facility] [place] [address] * Glucose, pleural fluid (12/04/2017 9:17 AM CITY CONTROLLER) Glucose, pleural fld 82 mg/dL [facility] Comment: Interpretive Data Pleural Fluid Glucose <60 mg/dL is indicative of complicated parapneumonic effusions. References: Daniel Moreno Textbook of clinical Chemistry and Molecular Diagnositics. Elsevier Sixth Edition 2017. Body Fluids Abstract p. 925. Tomy Beaulieu, [facility] Journal of Medicine. Pleural effusions: Evaluation and Management. August 2005. Volume 72, Number 10. Current interpretive data was last revised on 2017. Pleural fluid 12/04/2017 9:1 7 AM CITY CONTROLLER 12/04/2017 5:37 PM CITY CONTROLLER Narrative [facility] - 12/04/2017 7:24 PM CITY CONTROLLER us Francis Park MD PhD LAB BODY FLUIDS AND STOO LS ORDERABLES Final Result Performing Organization Address [facility] de Phone Number [facility] [place] [address] * Protein, pleural fluid (12/04/2017 9:17 AM CITY CONTROLLER) Protein, pleural fld 3.9 g/dL [facility] Comment: Interpretive Data Ratio of Pleural fluid to serum protein > or = 0.5 is indicative of exudate and <0.5 of transudate. Reference: Daniel Moreno Textbook of clinical Chemistry and Molecular Diagnositics. Elsevier Sixth Edition 2017. Body Fluids Abstract p. 925 Current interpretive data was last revised on 2017. Pleural fluid 12/04/2017 9:1 7 AM CITY CONTROLLER 12/04/2017 5:37 PM CITY CONTROLLER Narrative [facility] - 12/04/2017 7:24 PM CITY CONTROLLER us Francis Park MD PhD LAB BODY FLUIDS AND STOO LS ORDERABLES Final Result [facility] [place] [address] * Cytology (12/04/2017 9:16 AM CITY CONTROLLER) 12/04/2017 9:16 AM CITY CONTROLLER 12/04/2017 11:31 AM CITY CONTROLLER Narrative 12/06/2017 4:10 PM CITY CONTROLLER [facility] Johnathon Jaramillo [facility] [place] [address] CYTOPATHOLOGY REPORT FINAL Patient Name: BRI JONES Address: [address] [facility] Service: [facility] ??[place], [place] ??[id number] Location: [place] [address] Taken: 12/04/2017 Gender: ??M Received: 12/04/2017 : 1965 (Age: 52) Hospital #: [id number] Accessioned: 12/04/2017 ?? Patient Type: [facility] Inpatient Reported: 12/06/2017 Physician(s): ??Dalia Abdalla M.D. Sharon Eid M.D. Sourav Callejas M.D. Justine Parker M.D. Francis Park M.D. ? FINAL DIAGNOSIS A. ??Pleural fluid, right: ? - Negative for malignancy Comments Cell block, cytospins, and ThinPrep show a mixture of mesothelial cells, inflammatory cells and blood. ??Numerous macrophages show inbibition vacuoles, which can mimic a signet ring cell carcinoma. ??To exclude this possibility, three single antibody immunostain procedures with appropriate staining controls were performed. ??The majority of cells are positive for a macrophage marker CD163. ??Calretinin yun scattered mesothelial cells and MOC-31 is completely negative. Please refer to the concurrent flow cytometric analysis ([id number]) for further characterization. rcw/12/05/2017 15:13 By this signature, I attest that the above diagnosis is based upon my personal examination of the slides(and/or other material indicated in the diagnosis). ?? Sudha Montemayor M.D. ALAN Crawford(ASCP) Report Electronically Reviewed and Signed Out By ??Sudha Montemayor M.D. 12/06/2017 16:10:06 Gross Description A. ??Pleural fluid, right: ??60 ml bloody fluid -1 Pap stained ThinPrep, 1 Pap stained cytospin, 1 Diff-Quik stained cytospin, and cell block. ??(gs) Clinical Diagnosis and History The patient is a 52 year old man with a history of acute myeloid leukemia. ?By this signature, I attest that the above diagnosis is based upon my personal examination of the slides(and/or other material). ? Mark Calixto MD, PhD This Cytology report is available electronically in Clinical Desktop. The performance characteristics of some immunohistochemical stains, in-situ hybridization and fluorescence in-situ hybridization tests and immunophenotyping by flow cytometry cited in this report (if any) were determined by the Surgical Pathology Department at [facility] as part of an ongoing manager quality compliance program and in compliance with federally mandated [...] following disclaimer be attached to the report: ? This test was developed and its performance characteristics determined by the Surgical Pathology Department of [facility]. ??It has not been cleared or approved by the U. S. Food and Drug Administration. Wenjia Abdalla LAB CYTOLOGY ORDERABLES Final Re sult * Mycology (fungal) culture (12/04/2017 9:16 AM CITY CONTROLLER) Report Final Report: No growth of fungus [facility] Thoracentesis fluid 12/04/19 9:16 AM CITY CONTROLLER 12/04/2017 11:31 AM CITY CONTROLLER Narrative [facility] - 12/05/2017 8:26 AM CITY CONTROLLER Sharon Eid MD LAB MICROBIOLOGY - GENERAL O RDERABLES Final Result Performing Organization Address City/[facility]/ZIP Co de Phone Number [facility] [place] [address] * Body fluid aerobic and anaerobic culture (12/04/2017 9:16 AM CITY CONTROLLER) Pathologist [facility] [place] Direct Specimen Exam Stain: Cytospin gram stain shows: Moderate polymorphonuclear leukocytes seen. No organisms seen. [facility] Report Final Report: No growth [facility] Thoracentesis fluid 12/04/19 9:16 AM CITY CONTROLLER 12/04/2017 11:31 AM CITY CONTROLLER Narrative [facility] - 12/05/2017 8:29 AM CITY CONTROLLER Specimens submitted from normally sterile body sites will have all bacterial morphotypes identified. ??Specimens that contain grossly mixed lalito and/or are from body sites that are not normally sterile will be examined for Staphylococcus aureus, Pseudomonas aeruginosa, beta-hemolytic strep, vancomycin-resistant Enterococcus, Bacteroides fragilis, Clostridium perfringens and fungus. ??If any of these are isolated, the organism will be reported. Current interpretive data was last revised on 2013. Sharon Eid MD LAB MICROBIOLOGY - GENERAL O RDERABLES Final Result Performing Organization Address City/[facility]/ZIP Co de Phone Number [facility] [place] [address] * Fluid reference range (12/04/2017 9:16 AM CITY CONTROLLER) Reference range disclaimer [facility] has no established reference ranges for this fluid type. [facility] Body fluid 12/04/2017 9:16 AM CITY CONTROLLER 12/04/2017 11:36 AM CITY CONTROLLER Narrative [facility] - 12/04/2017 1:24 PM CITY CONTROLLER Sharon Eid MD LAB BODY FLUIDS AND STOOLS O RDERABLES Final Result Performing Organization Address City/[facility]/ZIP Co de Phone Number [facility] Department [place] [address] * Cell count and differential, body fluid (12/04/2017 9:16 AM CITY CONTROLLER) [facility] Signature Specimen type, fld Pleural Fluid [facility] Body site, fld unspecified [facility] Color, fld [place] [facility] Clarity, fld Slightly Cloudy Clear [facility] RBC, fld 12,586 cells/mcL [facility] Nucleated cells, fld 746 cells/mcL [facility] WBC counted 100 Cells [facility] Neutrophils, fld 12 % [facility] Lymphs, fld 32 % [facility] Brown/macropha ge fld 43 % [facility] Eosinophils, fld 13 % [facility] Body fluid 12/04/2017 9:16 AM CITY CONTROLLER 12/04/2017 11:36 AM CITY CONTROLLER Narrative [facility] - 12/04/2017 1:24 PM CITY CONTROLLER Sharon Eid MD LAB BODY FLUIDS AND STOOLS O RDERABLES Final Result Performing Organization Address City/[facility] Co de Phone Number [facility] [place] [address] * Lactate dehydrogenase, body fluid (12/04/2017 9:16 AM CITY CONTROLLER) Specimen type, fld Pleural [facility] LD, fld 407 Units/L [facility] Comment: Interpretive Data Ratio of fluid to serum LD > or = 0.6 is indicative of exudate and < 0.6 of transudate. References: Cristobal Franco et al. The Biochemistry of Body Fluids. ??Association of Clinical Biochemists in [place]. . ??August 2009. Daniel Moreno Textbook of clinical Chemistry and Molecular Diagnositics. ??Elsevier Sixth Edition 2017. Body Fluids Abstract p.925 Current Interpretive Data was last revised 2017. Body fluid 12/04/2017 9:16 AM CITY CONTROLLER 12/04/2017 11:26 AM CITY CONTROLLER Narrative [facility] - 12/04/2017 12:05 PM CITY CONTROLLER Sharon Eid MD LAB BODY FLUIDS AND STOOLS O RDERABLES Final Result [facility] Department [place] [address] * Albumin, Body Fluid W/Prompts (12/04/2017 9:16 AM CITY CONTROLLER) Specimen type, fld Pleural [facility] Albumin, fld 1.8 g/dL [facility] Comment: Interpretive Data Pleural - A difference between serum and Pleural fluid albumin > 1.2 g/dL (serum minus pleural fluid) is indicative of transudate. Ascites - Serum minus ascites albumin gradient > or = 1.1 g/dL is indicative of cirrhosis, hepatic failure, fatty liver, alcoholic hepatitis and portal vein thrombosis. ??Gradient < 1.1 g/dL is indicative of peritoneal carcinomatosis, Tuberculosis, Pancreatic, connective tissue disease and nephrotic syndrome. References: Cristobal Franco et al. ??The Biochemistry of Body Fluids. ??Association of Clinical Biochemists in [place]. -. August 2009. Daniel Moreno Textbook of clinical Chemistry and molecular Diagnositics. ??Elsevier Sixth Edition 2017. ??Body Fluids Abstract p.925 Current Interpretive Data was last revised 2017. Body fluid 12/04/2017 9:16 AM CITY CONTROLLER 12/04/2017 11:26 AM CITY CONTROLLER Narrative [facility] - 12/04/2017 12:05 PM CITY CONTROLLER us Sharon Eid MD LAB BLOOD ORDERABLES Final R esult Performing Organization Address [facility] Co de Phone Number [facility] [place] [address] * pH, body fluid (12/04/2017 9:16 AM CITY CONTROLLER) Specimen type, fld Pleural [facility] pH, fld 7.33 [facility] Comment: Pleural fluid pH is normally approximately 7.64. pH <7.2 is indicative of complicated parapneumonic effusions. References: Daniel Moreno Textbook of Clinical Chemistry and Molecular Diagnositics. Elsevier Sixth Edition 2017. Body Fluids Abstract p. 925 Tomy Beaulieu, [facility] Journal of Medicine. Pleural effusions: Evaluation and Management. August 2005. Volume 72, Number 10. Body fluid 12/04/2017 9:16 AM CITY CONTROLLER 12/04/2017 11:49 AM CITY CONTROLLER Narrative [facility] - 12/04/2017 11:50 AM CITY CONTROLLER us Sharon Eid MD LAB BODY FLUIDS AND STOOLS O RDERABLES Final Result Performing Organization Address [facility] de Phone Number [facility] Department [place] [address] * Glucose POC (12/04/2017 8:26 AM CITY CONTROLLER) Glucose, POC 90 70 - 199 mg/dL [facility] Blood specimen (specimen) 12/04/2017 8:26 AM CITY CONTROLLER 12/04/2017 8:26 AM CITY CONTROLLER Narrative [facility] - 12/04/2017 8:46 AM CITY CONTROLLER us Francis Park MD PhD POINT OF CARE TEST ORDER SUBHA Final Result Performing Organization Address [facility]/State/ZIP Co de Phone Number [facility] Department [place] [address] * (ABNORMAL) Lactate dehydrogenase (LD) (12/04/2017 4:24 AM CITY CONTROLLER) [facility] Lactate dehydrogenase (LDH) 299(H) 100 - 250 Units/L [facility] Blood specimen (specimen) 12/04/2017 4:24 AM CITY CONTROLLER 12/04/2017 5:13 AM CITY CONTROLLER Narrative [facility] - 12/04/2017 4:01 PM CITY CONTROLLER Michael Perrin MD LAB BLOOD ORDERABLES Final Result [facility] Department [place] [address] * (ABNORMAL) Morphology exam (12/04/2017 4:24 AM CITY CONTROLLER) [facility] Neutrophils 62.6 % [facility] Lymphocytes 17.4 % [facility] Monos 11.3 % [facility] Eosinophils 7.8 % [facility] Promyelocyte pct 0.9 % [facility] Platelet estimate Adequate [facility] Anisocytosis 1+(A) [facility] Macrocytes 3-7/HPF(A) [facility] Polychromasia 3-7/HPF(A) [facility] Target cells 3-7/HPF(A) [facility] WBC counted 115 Cells [facility] RBC morphology Present(A) [facility] Neutrophil abs 5.51 1.70 - 6.50 K/cumm [facility] Lymphs, abs 1.53 0.80 - 3.30 K/cumm [facility] Monos, abs 0.99(H) 0.20 - 0.80 K/cumm [facility] Eosinophils, abs 0.69(H) 0.00 - 0.50 K/cumm [facility] Immature granulocyte, abs 0.08 0.00 - 0.10 K/cumm [facility] Blood specimen (specimen) 12/04/2017 4:24 AM CITY CONTROLLER 12/04/2017 5:15 AM CITY CONTROLLER Narrative [facility] - 12/04/2017 6:24 AM CITY CONTROLLER us Michael Perrin MD LAB BLOOD ORDERABLES Final Result Performing Organization Address City/[facility]/ZIP Co de Phone Number [facility] Department [place] [address] * (ABNORMAL) Basic metabolic panel (12/04/2017 4:24 AM CITY CONTROLLER) Pathologist [facility] [place] Sodium 136 135 - 145 mmol/L [facility] Potassium, pl 4.6 3.3 - 4.9 mmol/L [facility] Chloride 103 97 - 110 mmol/L [facility] CO2 29 22 - 32 mmol/L [facility] BUN 8 8 - 25 mg/dL [facility] Glucose 88 70 - 199 mg/dL [facility] Comment: Interpretive Data Fasting glucose >/= [...] interpretive data was last revised 2017. Creatinine 0.75(L) 0.80 - 1.30 mg/dL [facility] Calcium 8.2(L) 8.5 - 10.3 mg/dL [facility] Anion gap 4 2 - 15 mmol/L [facility] Blood specimen (specimen) 12/04/2017 4:24 AM CITY CONTROLLER 12/04/2017 5:13 AM CITY CONTROLLER Narrative [facility] 12/04/2017 5:39 AM CITY CONTROLLER Michael Perrin MD LAB BLOOD ORDERABLES Final Result Performing Organization Address City/[facility]/[place] [address] * Magnesium (12/04/2017 4:24 AM CITY CONTROLLER) Pathologist [facility] [place] Magnesium 1.7 1.4 - 2.5 mg/dL [facility] Blood specimen (specimen) 12/04/2017 4:24 AM CITY CONTROLLER 12/04/2017 5:13 AM CITY CONTROLLER Narrative [facility] - 12/04/2017 5:39 AM CITY CONTROLLER Michael Perrin MD LAB BLOOD ORDERABLES Final Result Performing Organization Address [facility]/[place] [address] * Phosphorus (12/04/2017 4:24 AM CITY CONTROLLER) [facility] Phosphorus, pl 3.7 2.3 - 4.5 mg/dL [facility] Blood specimen (specimen) 12/04/2017 4:24 AM CITY CONTROLLER 12/04/2017 5:13 AM CITY CONTROLLER Narrative [facility] - 12/04/2017 5:39 AM CITY CONTROLLER Michael Perrin MD LAB BLOOD ORDERABLES Final Result Performing Organization Address City/[facility]/[place] [address] * Protime-INR (12/04/2017 4:24 AM CITY CONTROLLER) Pathologist [facility] [place] PT 11.0 8.5 - 13.0 sec [facility] INR 1.03 0.80 - 1.21 [facility] Comment: Interpretive Data Inpatient therapeutic ranges* Atrial fibrillation ?2.0-3.0 INR Venous thrombo-embolism ?2.0-3.0 INR Bioprosthetic heart valve ?* Mechanical heart valve, bileaflet or tilting disk,aortic position ? 2.0-3.0 INR All other,or bileaflet or tilting disk, in mitral position ? 2.5-3.5 INR *See the pharmacy resource directory (PHRED) for an updated copy of the Tool Book at [email or web address] Current Interpretive Data was last revised 2012. Blood specimen (specimen) 12/04/2017 4:24 AM CITY CONTROLLER 12/04/2017 5:12 AM CITY CONTROLLER Narrative [facility] - 12/04/2017 5:31 AM CITY CONTROLLER us Sharon Eid MD LAB BLOOD ORDERABLES Final R esult [facility] Department [place] [address] * (ABNORMAL) CBC without differential (12/04/2017 4:24 AM CITY CONTROLLER) WBC 8.80 3.80 - 9.90 K/cumm [facility] RBC 2.94(L) 4.30 - 5.80 M/cumm [facility] Hgb 10.1(L) 13.0 - 17.5 g/dL [facility] Hct 29.5(L) 38.9 - 50.3 % [facility] MCV 100.3(H) 81.3 - 96.4 fL [facility] MCH 34.4(H) 27.1 - 33.3 pg [facility] MCHC 34.2 32.3 - 35.7 g/dL [facility] RDW CV 15.9(H) 11.1 - 14.9 % [facility] RDW SD 58.7(H) 35.7 - 48.1 fL [facility] NRBC 0.0 0.0 - 0.2 % [facility] NRBC abs 0.00 0.00 - 0.01 K/cumm [facility] Plt 207 150 - 400 K/cumm [facility] MPV 11.2 9.1 - 12.3 fL [facility] Blood specimen (specimen) 12/04/2017 4:24 AM CITY CONTROLLER 12/04/2017 5:15 AM CITY CONTROLLER Narrative [facility] - 12/04/2017 5:28 AM CITY CONTROLLER Michael Perrin MD LAB BLOOD ORDERABLES Final Result [facility] [place] [address] * CYTOLOGY (12/04/2017 12:00 AM CITY CONTROLLER) Narrative 12/04/2017 12:00 AM CITY CONTROLLER Ordered by an unspecified provider. Historical Provider LAB CYTOLOGY ORDERABLES F inal Result * SURGICAL PATHOLOGY (12/04/2017 12:00 AM CITY CONTROLLER) Narrative 12/04/2017 12:00 AM CITY CONTROLLER Ordered by an unspecified provider. Historical Provider LAB PATHOLOGY ORDERABLES Final Result * Glucose POC (12/03/2017 10:36 PM CITY CONTROLLER) Glucose, POC 178 70 - 199 mg/dL [facility] Blood specimen (specimen) 12/03/2017 10:36 PM CITY CONTROLLER 12/03/2017 10:36 PM CITY CONTROLLER Narrative [facility] - 12/03/2017 10:57 PM CITY CONTROLLER Francis Park MD PhD POINT OF CARE TEST ORDER SUBHA Final Result [facility] [place] [address] * XR Chest Pa Lateral 2 Views (12/03/2017 8:40 PM CITY CONTROLLER) Anatomical Region Laterality Modality Body, Chest N/A Radiographic Tiffany ging 12/03/2017 8:40 PM CITY CONTROLLER Narrative 12/03/2017 9:19 PM CITY CONTROLLER Toño PATINO M.D. FINAL REPORT The radiology attending physician has personally reviewed this study, and has reviewed and/or edited this written report and agrees with it. ACC# ??Date Time ??Exam [id number] Dec 03, 2017 14:40:00 [id number] Chest 2vws Stnd PA/Lat EXAMINATION: ??2 view chest radiograph IMPRESSION: ??Comparison to 11/26/2017. ??A left PICC catheter is in place with tip overlying the superior vena cava Interval decrease in right mid to lower lung interstitial airspace opacity, consistent with improving pneumonia. ??However, right pleural effusion has increased in size, now moderate in size with residual right basilar atelectasis. ??Small left pleural effusion with associated atelectasis. ??Mild apical predominant emphysematous change. ??No pneumothorax. Heart size and mediastinal contours are unchanged. ??Mild atherosclerotic calcifications noted within the thoracic aorta. Electronically signed by: Bhavin Ochoa M.D. Requested By: SHARON EID M.D. Dictated By: ?? MICHAEL HANSON M.D. ??on Dec 03 2017 ??3:15P This document has been electronically signed by: BHAVIN OCHOA M.D. on Dec 03 2017 ??3:17P Toño PATINO M.D. FINAL REPORT The radiology attending physician has personally reviewed this study, and has reviewed and/or edited this written report and agrees with it. Attending: ??MARCELINA, ??SOURAV Requesting: ??CELESTE, ??SHARON Requesting Fax: ?? Attending Fax: ?? Attending ID: ??[id number] Requesting ID: ??[id number] Report To 1 ID: ??[id number] ? Report To 1 Name: ??, ?? Report To 1 FAX: ?? NextGen Order #: ?? Procedure Note Miscellaneous, Not In File - 12/03/2017 BHAVIN OCHOA M.D. MICHAEL HANSON M.D. FINAL REPORT The radiology attending physician has personally reviewed this study, and has reviewed and/or edited this written report and agrees with it. ACC# Date Time Exam [id number] Dec 03, 2017 14:40:00 [id number] Chest 2vws Stnd PA/Lat EXAMINATION: 2 view chest radiograph IMPRESSION: Comparison to 11/26/2017. A left PICC catheter is in place with tip overlying the superior vena cava Interval decrease in right mid to lower lung interstitial airspace opacity, consistent with improving pneumonia. However, right pleural effusion has increased in size, now moderate in size with residual right basilar atelectasis. Small left pleural effusion with associated atelectasis. Mild apical predominant emphysematous change. No pneumothorax. Heart size and mediastinal contours are unchanged. Mild atherosclerotic calcifications noted within the thoracic aorta. Electronically signed by: Bhavin Ochoa M.D. Requested By: SHARON EID M.D. Dictated By: MICHAEL HANSON M.D. on Dec 03 2017 3:15P This document has been electronically signed by: BHAVIN OCHOA M.D. on Dec 03 2017 3:17P Toño PATINO M.D. FINAL REPORT The radiology attending physician has personally reviewed this study, and has reviewed and/or edited this written report and agrees with it. Attending: SOURAV CALLEJAS Requesting: SHARON EID Requesting Fax: Attending Fax: Attending ID: [id number] Requesting ID: [id number] Report To 1 ID: [id number] Report To 1 Name: , Report To 1 FAX: NextGen Order #: us Sharon Eid MD IMG XR PROCEDURES Final Resu lt * Glucose POC (12/03/2017 7:05 PM CITY CONTROLLER) [facility] Glucose, POC 100 70 - 199 mg/dL [facility] Blood specimen (specimen) 12/03/2017 7:05 PM CITY CONTROLLER 12/03/2017 7:05 PM CITY CONTROLLER Narrative [facility] - 12/03/2017 7:16 PM CITY CONTROLLER Francis Park MD PhD POINT OF CARE TEST ORDER SUBHA Final Result Performing Organization Address [facility] [place] [address] * Glucose POC (12/03/2017 1:54 PM CITY CONTROLLER) Glucose, POC 151 70 - 199 mg/dL [facility] Blood specimen (specimen) 12/03/2017 1:54 PM CITY CONTROLLER 12/03/2017 1:54 PM CITY CONTROLLER Narrative [facility] - 12/03/2017 2:45 PM CITY CONTROLLER us Francis Park MD PhD POINT OF CARE TEST ORDER SUBHA Final Result Performing Organization Address [facility] de Phone Number [facility] [place] [address] * Glucose POC (12/03/2017 8:07 AM CITY CONTROLLER) [facility] Glucose, POC 144 70 - 199 mg/dL [facility] Blood specimen (specimen) 12/03/2017 8:07 AM CITY CONTROLLER 12/03/2017 8:07 AM CITY CONTROLLER Narrative [facility] - 12/03/2017 8:19 AM CITY CONTROLLER us Francis Park MD PhD POINT OF CARE TEST ORDER SUBHA Final Result Performing Organization Address [facility] [place] [address] * (ABNORMAL) CMV DNA QN, PCR (12/03/2017 3:09 AM CITY CONTROLLER) [facility] CMV DNA Detected( A) [facility] Comment: Interpretive Data: The quantifiable range of this assay is 137 IUnits/mL to 9,100,000 IUnits/mL (2.14 log IUnits/mL to 6.96 log IUnits/mL). Testing was performed by the MICHEL AmpliPrep/MICHEL TaqMan CMV Test ([employer] Testing performed at [facility] Current interpretive data was last revised on 17. CMV DNA IU/mL <137 IUnits/mL [facility] CMV DNA log IU/mL <2.14 log IUnits/mL [facility] Blood specimen (specimen) 12/03/2017 3:09 AM CITY CONTROLLER 12/03/2017 3:26 PM CITY CONTROLLER Narrative [facility] - 12/05/2017 10:08 AM CITY CONTROLLER us Michael Perrin MD LAB MICROBIOLOGY - GENERAL ORDERABLES Final Result [facility] Department [place] [address] * (ABNORMAL) Morphology exam (12/03/2017 3:09 AM CITY CONTROLLER) Neutrophils 49.1 % [facility] Lymphocytes 33.3 % [facility] Monos 11.4 % [facility] Eosinophils 1.8 % [facility] Basophil pct 0.9 % [facility] Platelet estimate Adequate [facility] Anisocytosis 3+(A) [facility] Macrocytes > 15/HPF(A) [facility] WBC counted 114 Cells [facility] Variant lymph pct 3.5 % [facility] RBC morphology Present(A) [facility] Neutrophil abs 5.22 1.70 - 6.50 K/cumm [facility] Lymphs, abs 3.91(H) 0.80 - 3.30 K/cumm [facility] Monos, abs 1.21(H) 0.20 - 0.80 K/cumm [facility] Eosinophils, abs 0.19 0.00 - 0.50 K/cumm [facility] Basophils, abs 0.10 0.00 - 0.10 K/cumm [facility] Immature granulocyte, abs 0.00 0.00 - 0.10 K/cumm [facility] Blood specimen (specimen) 12/03/2017 3:09 AM CITY CONTROLLER 12/03/2017 4:16 AM CITY CONTROLLER Narrative [facility] - 12/03/2017 5:09 AM CITY CONTROLLER Michael Perrin MD LAB BLOOD ORDERABLES Final Result [facility] Department [place] [address] * (ABNORMAL) Basic metabolic panel (12/03/2017 3:09 AM CITY CONTROLLER) Sodium 133(L) 135 - 145 mmol/L [facility] Potassium, pl 4.9 3.3 - 4.9 mmol/L [facility] Chloride 98 97 - 110 mmol/L [facility] CO2 30 22 - 32 mmol/L [facility] BUN 8 8 - 25 mg/dL [facility] Glucose 94 70 - 199 mg/dL [facility] Comment: Interpretive Data Fasting glucose >/= [...] interpretive data was last revised 2017. Creatinine 0.70(L) 0.80 - 1.30 mg/dL [facility] Calcium 8.6 8.5 - 10.3 mg/dL [facility] Anion gap 4 2 - 15 mmol/L [facility] Blood specimen (specimen) 12/03/2017 3:09 AM CITY CONTROLLER 12/03/2017 4:19 AM CITY CONTROLLER Narrative [facility] - 12/03/2017 4:47 AM CITY CONTROLLER us Michael Perrin MD LAB BLOOD ORDERABLES Final Result Performing Organization Address [facility] [place] [address] * Magnesium (12/03/2017 3:09 AM CITY CONTROLLER) [facility] Magnesium 2.0 1.4 - 2.5 mg/dL [facility] Blood specimen (specimen) 12/03/2017 3:09 AM CITY CONTROLLER 12/03/2017 4:19 AM CITY CONTROLLER Narrative [facility] - 12/03/2017 4:47 AM CITY CONTROLLER Michael Perrin MD LAB BLOOD ORDERABLES Final Result Performing Organization Address [facility] [place] [address] * Phosphorus (12/03/2017 3:09 AM CITY CONTROLLER) [facility] Phosphorus, pl 3.4 2.3 - 4.5 mg/dL [facility] Blood specimen (specimen) 12/03/2017 3:09 AM CITY CONTROLLER 12/03/2017 4:19 AM CITY CONTROLLER Narrative [facility] - 12/03/2017 4:47 AM CITY CONTROLLER Michael Perrin MD LAB BLOOD ORDERABLES Final Result Performing Organization Address [facility] [place] [address] * (ABNORMAL) CBC without differential (12/03/2017 3:09 AM CITY CONTROLLER) [facility] WBC 10.63(H) 3.80 - 9.90 K/cumm [facility] RBC 3.16(L) 4.30 - 5.80 M/cumm [facility] Hgb 11.0(L) 13.0 - 17.5 g/dL [facility] Hct 31.3(L) 38.9 - 50.3 % [facility] MCV 99.1(H) 81.3 - 96.4 fL [facility] MCH 34.8(H) 27.1 - 33.3 pg [facility] MCHC 35.1 32.3 - 35.7 g/dL [facility] RDW CV 15.9(H) 11.1 - 14.9 % [facility] RDW SD 56.6(H) 35.7 - 48.1 fL [facility] NRBC 0.4(H) 0.0 - 0.2 % [facility] NRBC abs 0.04(H) 0.00 - 0.01 K/cumm [facility] Plt 193 150 - 400 K/cumm [facility] MPV 11.7 9.1 - 12.3 fL [facility] Blood specimen (specimen) 12/03/2017 3:09 AM CITY CONTROLLER 12/03/2017 4:16 AM CITY CONTROLLER Narrative [facility] - 12/03/2017 4:28 AM CITY CONTROLLER us Michael Perrin MD LAB BLOOD ORDERABLES Final Result [facility] [place] [address] * Glucose POC (12/02/2017 9:08 PM CITY CONTROLLER) [facility] Glucose, POC 152 70 - 199 mg/dL [facility] Blood specimen (specimen) 12/02/2017 9:08 PM CITY CONTROLLER 12/02/2017 9:08 PM CITY CONTROLLER Narrative [facility] - 12/02/2017 9:21 PM CITY CONTROLLER us Francis Park MD PhD POINT OF CARE TEST ORDER SUBHA Final Result [facility] [place] [address] * Glucose POC (12/02/2017 7:33 PM CITY CONTROLLER) [facility] Glucose, POC 156 70 - 199 mg/dL [facility] Blood specimen (specimen) 12/02/2017 7:33 PM CITY CONTROLLER 12/02/2017 7:33 PM CITY CONTROLLER Narrative [facility] - 12/02/2017 7:47 PM CITY CONTROLLER Francis Park MD PhD POINT OF CARE TEST ORDER SUBHA Final Result Performing Organization Address [facility] Co de Phone Number [facility] Department [place] [address] * Glucose POC (12/02/2017 2:24 PM CITY CONTROLLER) [facility] Glucose, POC 115 70 - 199 mg/dL [facility] Blood specimen (specimen) 12/02/2017 2:24 PM CITY CONTROLLER 12/02/2017 2:24 PM CITY CONTROLLER Narrative [facility] - 12/02/2017 2:46 PM CITY CONTROLLER Francis Park MD PhD POINT OF CARE TEST ORDER SUBHA Final Result Performing Organization Address [facility] de Phone Number [facility] Department [place] [address] * Influenza A/B PCR (12/02/2017 12:02 PM CITY CONTROLLER) [facility] Report Final Report: Flu A target RNA not detected Flu B target RNA not detected RSV target RNA not detected [facility] Nasopharyngeal 12/02/2017 12 :02 PM CITY CONTROLLER 12/02/2017 1:01 PM CITY CONTROLLER Narrative [facility] - 12/02/2017 1:02 PM CITY CONTROLLER Interpretive Data This test is performed using the StrongLoopert Xpress Flu/RSV Assay. ??This is a multiplex, real-time reverse transcriptase PCR assay that detects influenza A, influenza B, and respiratory syncytial virus RNA. ??This assay has been cleared by the US Food and Drug Administration, and its performance characteristics have been verified by the [facility] Microbiology Laboratory. Current interpretive data was last revised on 2017. Sharon Eid MD LAB MICROBIOLOGY - GENERAL O RDERABLES Final Result [facility] Department [place] [address] * Respiratory virus detection panel (12/02/2017 12:02 PM CITY CONTROLLER) Report Final Report: Respiratory Pathogen nucleic acids NOT DETECTED (NEGATIVE) [facility] Nasopharyngeal 12/02/2017 12 :02 PM CITY CONTROLLER 12/02/2017 1:31 PM CITY CONTROLLER Narrative [facility] - 12/02/2017 1:32 PM CITY CONTROLLER The Superb FilmArray Respiratory Panel (RP2) assay is a [...] FilmArray RP assay is FDA cleared for EXPLOSIVE ORDNANCE DISPOSAL TECHNICIAN swabs. ??Additional sample types have been validated according to CLIA regulations. The performance characteristics of this assay have been determined by [facility] Molecular Infectious Disease Laboratory. Current interpretive data was last revised on 2017. Sharon Eid MD LAB MICROBIOLOGY - GENERAL O RDERABLES Final Result Performing Organization Address [facility] Co de Phone Number [facility] Department [place] [address] * Glucose POC (12/02/2017 9:09 AM CITY CONTROLLER) Glucose, POC 195 70 - 199 mg/dL [facility] Blood specimen (specimen) 12/02/2017 9:09 AM CITY CONTROLLER 12/02/2017 9:09 AM CITY CONTROLLER Narrative [facility] - 12/02/2017 9:55 AM CITY CONTROLLER Francis Park MD PhD POINT OF CARE TEST ORDER SUBHA Final Result Performing Organization Address [facility] Co de Phone Number [facility] [place] [address] * Tacrolimus level trough (12/02/2017 9:08 AM CITY CONTROLLER) Tacrolimus, trough 7.0 ng/mL [facility] Comment: Interpretive Data The therapeutic range for tacrolimus can vary by transplant organ type and sample timing but a trough range of 5 - 15 ng/mL is typical. Testing performed by liquid chromatography-tandem mass spectrometry (LC- MS/MS).This test was developed using an analyte specific reagent. Its performance characteristics were determined by the [facility] Laboratory in a manner consistent with CLIA requirements. This test has not been cleared or approved by the U.S. Food and Drug Administration. Current interpretive data was last revised on 2016. Blood specimen (specimen) 12/02/2017 9:08 AM CITY CONTROLLER 12/02/2017 9:54 AM CITY CONTROLLER Narrative [facility] - 12/02/2017 1:08 PM CITY CONTROLLER us Sharon Eid MD LAB BLOOD ORDERABLES Final R esult Performing Organization Address [facility] Co de Phone Number [facility] [place] [address] * Uric acid (12/02/2017 3:54 AM CITY CONTROLLER) Uric acid 3.3 3.0 - 8.0 mg/dL [facility] Blood specimen (specimen) 12/02/2017 3:54 AM CITY CONTROLLER 12/02/2017 5:34 AM CITY CONTROLLER Narrative [facility] - 12/02/2017 12:24 PM CITY CONTROLLER us Michael Perrin MD LAB BLOOD ORDERABLES Final Result Performing Organization Address [facility] Co de Phone Number [facility] [place] [address] * Type and screen (12/02/2017 3:54 AM CITY CONTROLLER) ABO Rh A Positive [facility] Ursula, indirect Negative [facility] Blood specimen (specimen) 12/02/2017 3:54 AM CITY CONTROLLER 12/02/2017 4:41 AM CITY CONTROLLER Narrative [facility] - 12/02/2017 8:56 AM CITY CONTROLLER Michael Perrin MD LAB BLOOD BANK TEST ORDERAB LES Final Result Performing Organization Address [facility] Co de Phone Number [facility] [place] [address] * (ABNORMAL) Morphology exam (12/02/2017 3:54 AM CITY CONTROLLER) Pathologist [facility] [place] Neutrophils 67.6 % [facility] Lymphocytes 19.3 % [facility] Monos 6.1 % [facility] Eosinophils 6.1 % [facility] Basophil pct 0.9 % [facility] Platelet estimate Adequate [facility] Anisocytosis 1+(A) [facility] Poikilocytosis 1+(A) [facility] Microcytes 3-7/HPF(A) [facility] Macrocytes 8-15/HPF(A) [facility] Target cells 3-7/HPF(A) [facility] WBC counted 114 Cells [facility] RBC morphology Present(A) [facility] Neutrophil abs 7.69(H) 1.70 - 6.50 K/cumm [facility] Lymphs, abs 2.20 0.80 - 3.30 K/cumm [facility] Monos, abs 0.69 0.20 - 0.80 K/cumm [facility] Eosinophils, abs 0.69(H) 0.00 - 0.50 K/cumm [facility] Basophils, abs 0.10 0.00 - 0.10 K/cumm [facility] Immature granulocyte, abs 0.00 0.00 - 0.10 K/cumm [facility] Blood specimen (specimen) 12/02/2017 3:54 AM CITY CONTROLLER 12/02/2017 5:30 AM CITY CONTROLLER Narrative [facility] - 12/02/2017 6:24 AM CITY CONTROLLER us Michael Perrin MD LAB BLOOD ORDERABLES Final Result [facility] Department [place] [address] * (ABNORMAL) Comprehensive metabolic panel (12/02/2017 3:54 AM CITY CONTROLLER) Pathologist [facility] [place] Sodium 134(L) 135 - 145 mmol/L [facility] Potassium, pl 4.5 3.3 - 4.9 mmol/L [facility] CO2 29 22 - 32 mmol/L [facility] BUN 9 8 - 25 mg/dL [facility] Glucose 114 70 - 199 mg/dL [facility] Comment: Interpretive Data Fasting glucose >/= [...] interpretive data was last revised 2017. Creatinine 0.66(L) 0.80 - 1.30 mg/dL [facility] Calcium 8.2(L) 8.5 - 10.3 mg/dL [facility] Chloride 100 97 - 110 mmol/L [facility] Albumin 2.5(L) 3.5 - 5.0 g/dL [facility] AST 25 10 - 50 Units/L [facility] ALT 29 7 - 55 Units/L [facility] Alk phos 493(H) 40 - 130 Units/L [facility] Bilirubin, total 0.6 0.1 - 1.2 mg/dL [facility] Protein, pl 6.1(L) 6.5 - 8.5 g/dL [facility] Anion gap 5 2 - 15 mmol/L [facility] Blood specimen (specimen) 12/02/2017 3:54 AM CITY CONTROLLER 12/02/2017 5:34 AM CITY CONTROLLER Narrative [facility] - 12/02/2017 6:04 AM CITY CONTROLLER us Michael Perrin MD LAB BLOOD ORDERABLES Final Result [facility] Department [place] [address] * Magnesium (12/02/2017 3:54 AM CITY CONTROLLER) Magnesium 1.4 1.4 - 2.5 mg/dL [facility] Blood specimen (specimen) 12/02/2017 3:54 AM CITY CONTROLLER 12/02/2017 5:34 AM CITY CONTROLLER Narrative [facility] - 12/02/2017 6:04 AM CITY CONTROLLER Michael Perrin MD LAB BLOOD ORDERABLES Final Result Performing Organization Address [facility]/ZIP Co de Phone Number [facility] [place] [address] * Phosphorus (12/02/2017 3:54 AM CITY CONTROLLER) Pathologist [facility] [place] Phosphorus, pl 3.2 2.3 - 4.5 mg/dL [facility] Blood specimen (specimen) 12/02/2017 3:54 AM CITY CONTROLLER 12/02/2017 5:34 AM CITY CONTROLLER Narrative [facility] - 12/02/2017 6:04 AM CITY CONTROLLER us Michael Perrin MD LAB BLOOD ORDERABLES Final Result Performing Organization Address [facility] [place] [address] * Lactate dehydrogenase (LD) (12/02/2017 3:54 AM CITY CONTROLLER) Pathologist [facility] [place] Lactate dehydrogenase (LDH) 219 100 - 250 Units/L [facility] Blood specimen (specimen) 12/02/2017 3:54 AM CITY CONTROLLER 12/02/2017 5:34 AM CITY CONTROLLER Narrative [facility] - 12/02/2017 6:04 AM CITY CONTROLLER Michael Perrin MD LAB BLOOD [place] [address] * (ABNORMAL) aPTT (12/02/2017 3:54 AM CITY CONTROLLER) aPTT 39.2(H) 25.0 - 37.0 sec [facility] Comment: Interpretive Data Therapeutic heparin range:60.0 - 94.0 sec based on correlation with therapeutic heparin activity range of 0.3 -0.7 Units/mL. Current interpretive data was last revised on 2011. Blood specimen (specimen) 12/02/2017 3:54 AM CITY CONTROLLER 12/02/2017 5:31 AM CITY CONTROLLER Narrative [facility] - 12/02/2017 6:00 AM CITY CONTROLLER us Michael Perrin MD LAB BLOOD ORDERABLES Final Result [facility] Department [place] [address] * Protime-INR (12/02/2017 3:54 AM CITY CONTROLLER) Pathologist [facility] [place] PT 12.9 8.5 - 13.0 sec [facility] INR 1.20 0.80 - 1.21 [facility] Comment: Interpretive Data Inpatient therapeutic ranges* Atrial fibrillation ?2.0-3.0 INR Venous thrombo-embolism ?2.0-3.0 INR Bioprosthetic heart valve ?* Mechanical heart valve, bileaflet or tilting disk,aortic position ? 2.0-3.0 INR All other,or bileaflet or tilting disk, in mitral position ? 2.5-3.5 INR *See the pharmacy resource directory (PHRED) for an updated copy of the Tool Book at [email or web address] Current Interpretive Data was last revised 2012. Blood specimen (specimen) 12/02/2017 3:54 AM CITY CONTROLLER 12/02/2017 5:31 AM CITY CONTROLLER Narrative [facility] - 12/02/2017 6:00 AM CITY CONTROLLER us Michael Perrin MD LAB BLOOD ORDERABLES Final Result Performing Organization Address [facility] Co de Phone Number [facility] Department [place] [address] * (ABNORMAL) CBC without differential (12/02/2017 3:54 AM CITY CONTROLLER) Pathologist [facility] [place] WBC 11.38(H) 3.80 - 9.90 K/cumm [facility] RBC 2.97(L) 4.30 - 5.80 M/cumm [facility] Hgb 10.3(L) 13.0 - 17.5 g/dL [facility] Hct 29.6(L) 38.9 - 50.3 % [facility] MCV 99.7(H) 81.3 - 96.4 fL [facility] MCH 34.7(H) 27.1 - 33.3 pg [facility] MCHC 34.8 32.3 - 35.7 g/dL [facility] RDW CV 16.1(H) 11.1 - 14.9 % [facility] RDW SD 58.4(H) 35.7 - 48.1 fL [facility] NRBC 0.5(H) 0.0 - 0.2 % [facility] NRBC abs 0.06(H) 0.00 - 0.01 K/cumm [facility] Plt 163 150 - 400 K/cumm [facility] MPV 11.8 9.1 - 12.3 fL [facility] Blood specimen (specimen) 12/02/2017 3:54 AM CITY CONTROLLER 12/02/2017 5:30 AM CITY CONTROLLER Narrative [facility] - 12/02/2017 5:37 AM CITY CONTROLLER us Michael Perrin MD LAB BLOOD ORDERABLES Final Result Performing Organization Address City/State/[facility] [place] [address] * Glucose POC (12/01/2017 8:13 PM CITY CONTROLLER) Glucose, POC 100 70 - 199 mg/dL [facility] Blood specimen (specimen) 12/01/2017 8:13 PM CITY CONTROLLER 12/01/2017 8:13 PM CITY CONTROLLER Narrative [facility] - 12/01/2017 10:16 PM CITY CONTROLLER Francis Park MD PhD POINT OF CARE TEST ORDER SUBHA Final Result Performing Organization Address [facility] [place] [address] * Glucose POC (12/01/2017 5:49 PM CITY CONTROLLER) Glucose, POC 115 70 - 199 mg/dL [facility] Blood specimen (specimen) 12/01/2017 5:49 PM CITY CONTROLLER 12/01/2017 5:49 PM CITY CONTROLLER Narrative [facility] - 12/01/2017 6:12 PM CITY CONTROLLER Francis Park MD PhD POINT OF CARE TEST ORDER SUBHA Final Result Performing Organization Address [facility] [place] [address] * CT Chest WO Contrast (12/01/2017 4:42 PM CITY CONTROLLER) Anatomical Region Laterality Modality Body N/A Computed Tomogra phy 12/01/2017 4:42 PM CITY CONTROLLER Narrative 12/01/2017 10:10 PM CITY CONTROLLER CIERA VELA M.D. OLGA FIORE M.D. FINAL REPORT The radiology attending physician has personally reviewed this study, and has reviewed and/or edited this written report and agrees with it. ACC# ??Date Time ??Exam [id number] Dec 01, 2017 10:42:[address] Chest without contrast EXAMINATION: ??CT of the chest without intravenous contrast HISTORY:Cough, concern for pneumonia, AML, [id number] disease TECHNIQUE: Transaxial computed tomographic images of the chest were obtained without intravenous contrast according to standard protocol. FINDINGS: Prior body CT performed on 11/23/2017. A left-sided peripherally inserted central catheter is seen terminating in the right atrium. ??There is bilateral gynecomastia. No supraclavicular, axillary, or mediastinal lymphadenopathy. ??The heart size is normal. ??No pericardial effusion. There is a moderate right and small left pleural effusion. ??No pneumothorax. ??There is upper lobe predominant moderate centrilobular emphysema. ??There is right upper lobe scarring and bibasilar atelectasis. ??There is right lower lobe peripheral consolidation as well as reticulation. Included views of the upper abdomen demonstrate interval decrease in peripancreatic fluid collections surrounding the pancreatic body and tail. ??However, this is incompletely evaluated. Bone windows demonstrate no osseous lytic or blastic lesions. IMPRESSION: ??1. Moderate right and small left pleural effusion, increased. 2. Right lower lobe peripheral consolidation as well as reticulation. This is favored to represent pneumonia, either infectious or organizing, that is superimposed upon fibrosis. 3. Moderate centrilobular emphysema. 4. Interval decrease in peripancreatic fluid collections surrounding the pancreatic body and tail that is incompletely evaluated. Electronically signed by: Ciera Vela M.D. Requested By: REENA ANDERSON ??Toño Dictated By: ?? OLGA FIORE M.D. ??on Dec 01 2017 10:57A This document has been electronically signed by: CIERA VELA M.D. on Dec 01 2017 ??4:08P [id number] MARTINEZ M.D. FINAL REPORT The radiology attending physician has personally reviewed this study, and has reviewed and/or edited this written report and agrees with it. Attending: ??MARCELINA, ??SOURAV Requesting: ??URIEL, ??REENA Requesting Fax: ?? Attending Fax: ?? Attending ID: ??[id number] Requesting ID: ??[id number] Report To 1 ID: ??[id number] ? Report To 1 Name: ??, ?? Report To 1 FAX: ?? NextGen Order #: ?? Procedure Note Miscellaneous, Not In File - 12/01/2017 CIERA VELA M.D. OLGA FIORE M.D. FINAL REPORT The radiology attending physician has personally reviewed this study, and has reviewed and/or edited this written report and agrees with it. ACC# Date Time Exam [id number] Dec 01, 2017 10:42:[address] Chest without contrast EXAMINATION: CT of the chest without intravenous contrast HISTORY:Cough, concern for pneumonia, AML, [id number] disease TECHNIQUE: Transaxial computed tomographic images of the chest were obtained without intravenous contrast according to standard protocol. FINDINGS: Prior body CT performed on 11/23/2017. A left-sided peripherally inserted central catheter is seen terminating in the right atrium. There is bilateral gynecomastia. No supraclavicular, axillary, or mediastinal lymphadenopathy. The heart size is normal. No pericardial effusion. There is a moderate right and small left pleural effusion. No pneumothorax. There is upper lobe predominant moderate centrilobular emphysema. There is right upper lobe scarring and bibasilar atelectasis. There is right lower lobe peripheral consolidation as well as reticulation. Included views of the upper abdomen demonstrate interval decrease in peripancreatic fluid collections surrounding the pancreatic body and tail. However, this is incompletely evaluated. Bone windows demonstrate no osseous lytic or blastic lesions. IMPRESSION: 1. Moderate right and small left pleural effusion,increased. 2. Right lower lobe peripheral consolidation as well as reticulation. This is favored to represent pneumonia, either infectious or organizing, that is superimposed upon fibrosis. 3. Moderate centrilobular emphysema. 4. Interval decrease in peripancreatic fluid collections surrounding the pancreatic body and tail that is incompletely evaluated. Electronically signed by: Ciera Vela M.D. Requested By: REENA ANDERSON M.D. Dictated By: OLGA FIORE M.D. on Dec 01 2017 10:57A This document has been electronically signed by: CIERA VELA M.D. on Dec 01 2017 4:08P [id number] Toño QUINTERO M.D. FINAL REPORT The radiology attending physician has personally reviewed this study, and has reviewed and/or edited this written report and agrees with it. Attending: SOURAV CALLEJAS Requesting: REENA ANDERSON Requesting Fax: Attending Fax: Attending ID: [id number] Requesting ID: [id number] Report To 1 ID: [id number] Report To 1 Name: , Report To 1 FAX: NextGen Order #: Reena Anderson IMG CT PROCEDURES Final Result * Glucose POC (12/01/2017 12:29 PM CITY CONTROLLER) [facility] Glucose, POC 107 70 - 199 mg/dL [facility] Blood specimen (specimen) 12/01/2017 12:29 PM CITY CONTROLLER 12/01/2017 12:29 PM CITY CONTROLLER Narrative [facility] - 12/01/2017 12:44 PM CITY CONTROLLER Francis Park MD PhD POINT OF CARE TEST ORDER SUBHA Final Result [facility] Department [place] [address] * VRE culture (12/01/2017 12:27 PM CITY CONTROLLER) [facility] Report Final Report: Negative [facility] Rectal swab 12/01/2017 12:2 7 PM CITY CONTROLLER 12/01/2017 1:21 PM CITY CONTROLLER Narrative [facility] - 12/02/2017 8:18 AM CITY CONTROLLER Reena Anderson LAB MICROBIOLOGY - GENERAL ORDER SUBAH Final Result [facility] Department [place] [address] * Glucose POC (12/01/2017 8:46 AM CITY CONTROLLER) [facility] Glucose, POC 124 70 - 199 mg/dL [facility] Blood specimen (specimen) 12/01/2017 8:46 AM CITY CONTROLLER 12/01/2017 8:46 AM CITY CONTROLLER Narrative [facility] - 12/01/2017 9:05 AM CITY CONTROLLER Francis Park MD PhD POINT OF CARE TEST ORDER SUBHA Final Result [facility] Department [place] [address] * (ABNORMAL) Morphology exam (12/01/2017 3:11 AM CITY CONTROLLER) [facility] Neutrophils 66.6 % [facility] Lymphocytes 15.8 % [facility] Monos 12.3 % [facility] Eosinophils 4.4 % [facility] Basophil pct 0.9 % [facility] Platelet estimate Decreased (A) [facility] Anisocytosis 1+(A) [facility] Poikilocytosis 1+(A) [facility] Macrocytes 8-15/HPF( A) [facility] Target cells 3-7/HPF(A ) [facility] WBC counted 114 Cells [facility] RBC morphology Present(A ) [facility] Neutrophil abs 8.67(H) 1.70 - 6.50 K/cumm [facility] Lymphs, abs 2.06 0.80 - 3.30 K/cumm [facility] Monos, abs 1.60(H) 0.20 - 0.80 K/cumm [facility] Eosinophils, abs 0.57(H) 0.00 - 0.50 K/cumm [facility] Basophils, abs 0.12(H) 0.00 - 0.10 K/cumm [facility] Immature granulocyte, abs 0.00 0.00 - 0.10 K/cumm [facility] Blood specimen (specimen) 12/01/2017 3:11 AM CITY CONTROLLER 12/01/2017 5:15 AM CITY CONTROLLER Narrative [facility] - 12/01/2017 6:36 AM CITY CONTROLLER us Michael Perrin MD LAB BLOOD ORDERABLES Final Result Performing Organization Address City/[facility]/ZIP Co de Phone Number [facility] [place] [address] * (ABNORMAL) Basic metabolic panel (12/01/2017 3:11 AM CITY CONTROLLER) Sodium 134(L) 135 - 145 mmol/L [facility] Potassium, pl 4.2 3.3 - 4.9 mmol/L [facility] Chloride 100 97 - 110 mmol/L [facility] CO2 29 22 - 32 mmol/L [facility] BUN 11 8 - 25 mg/dL [facility] Glucose 122 70 - 199 mg/dL [facility] Comment: Interpretive Data Fasting glucose >/= [...] interpretive data was last revised 2017. Creatinine 0.58(L) 0.80 - 1.30 mg/dL [facility] Calcium 8.1(L) 8.5 - 10.3 mg/dL [facility] Anion gap 5 2 - 15 mmol/L [facility] Blood specimen (specimen) 12/01/2017 3:11 AM CITY CONTROLLER 12/01/2017 5:17 AM CITY CONTROLLER Narrative [facility] - 12/01/2017 5:42 AM CITY CONTROLLER Michael Perrin MD LAB BLOOD ORDERABLES Final Result Performing Organization Address City/[facility]/ZIP Co de Phone Number [facility] [place] [address] * Magnesium (12/01/2017 3:11 AM CITY CONTROLLER) [facility] Magnesium 1.6 1.4 - 2.5 mg/dL [facility] Blood specimen (specimen) 12/01/2017 3:11 AM CITY CONTROLLER 12/01/2017 5:17 AM CITY CONTROLLER Narrative [facility] - 12/01/2017 5:42 AM CITY CONTROLLER Michael Perrin MD LAB BLOOD ORDERABLES Final Result Performing Organization Address City/[facility]/ZIP Co de Phone Number [facility] Department [place] [address] * Phosphorus (12/01/2017 3:11 AM CITY CONTROLLER) [facility] Phosphorus, pl 3.0 2.3 - 4.5 mg/dL [facility] Blood specimen (specimen) 12/01/2017 3:11 AM CITY CONTROLLER 12/01/2017 5:17 AM CITY CONTROLLER Narrative [facility] - 12/01/2017 5:42 AM CITY CONTROLLER iMchael Perrin MD LAB BLOOD ORDERABLES Final Result Performing Organization Address [facility] de Phone Number [facility] Department [place] [address] * (ABNORMAL) CBC without differential (12/01/2017 3:11 AM CITY CONTROLLER) [facility] WBC 13.02(H) 3.80 - 9.90 K/cumm [facility] RBC 3.05(L) 4.30 - 5.80 M/cumm [facility] Hgb 10.4(L) 13.0 - 17.5 g/dL [facility] Hct 30.3(L) 38.9 - 50.3 % [facility] MCV 99.3(H) 81.3 - 96.4 fL [facility] MCH 34.1(H) 27.1 - 33.3 pg [facility] MCHC 34.3 32.3 - 35.7 g/dL [facility] RDW CV 16.1(H) 11.1 - 14.9 % [facility] RDW SD 57.8(H) 35.7 - 48.1 fL [facility] NRBC 0.5(H) 0.0 - 0.2 % [facility] NRBC abs 0.06(H) 0.00 - 0.01 K/cumm [facility] Plt 145(L) 150 - 400 K/cumm [facility] MPV 12.2 9.1 - 12.3 fL [facility] Blood specimen (specimen) 12/01/2017 3:11 AM CITY CONTROLLER 12/01/2017 5:15 AM CITY CONTROLLER Narrative [facility] - 12/01/2017 5:31 AM CITY CONTROLLER us Michael Perrin MD LAB BLOOD ORDERABLES Final Result Performing Organization Address [facility]/ZIP Co de Phone Number [facility] Department [place] [address] * Glucose POC (11/30/2017 6:07 PM CITY CONTROLLER) Glucose, POC 113 70 - 199 mg/dL [facility] Blood specimen (specimen) 11/30/2017 6:07 PM CITY CONTROLLER 11/30/2017 6:07 PM CITY CONTROLLER Narrative [facility] - 11/30/2017 6:26 PM CITY CONTROLLER us Francis Park MD PhD POINT OF CARE TEST ORDER SUBHA Final Result [facility] [place] [address] * Glucose POC (11/30/2017 11:46 AM CITY CONTROLLER) Glucose, POC 125 70 - 199 mg/dL [facility] Blood specimen (specimen) 11/30/2017 11:46 AM CITY CONTROLLER 11/30/2017 11:46 AM CITY CONTROLLER Narrative [facility] - 11/30/2017 12:09 PM CITY CONTROLLER Francis Park MD PhD POINT OF CARE TEST ORDER SUBHA Final Result Performing Organization Address [facility] Co de Phone Number [facility] [place] [address] * Glucose POC (11/30/2017 8:52 AM CITY CONTROLLER) [facility] Glucose, POC 127 70 - 199 mg/dL [facility] Blood specimen (specimen) 11/30/2017 8:52 AM CITY CONTROLLER 11/30/2017 8:52 AM CITY CONTROLLER Narrative [facility] - 11/30/2017 2:43 PM CITY CONTROLLER Francis Park MD PhD POINT OF CARE TEST ORDER SUBHA Final Result Performing Organization Address [facility] de Phone Number [facility] Department [place] [address] * (ABNORMAL) Morphology exam (11/30/2017 2:55 AM CITY CONTROLLER) [facility] Neutrophils 59.6 % [facility] Lymphocytes 27.2 % [facility] Monos 12.3 % [facility] Metamyelocyte pct 0.9 % [facility] Platelet estimate Decreased (A) [facility] Anisocytosis 2+(A) [facility] Poikilocytosis 1+(A) [facility] Macrocytes 8-15/HPF( A) [facility] Target cells 3-7/HPF(A ) [facility] Acanthocytes 3-7/HPF(A ) [facility] WBC counted 114 Cells [facility] RBC morphology Present(A ) [facility] Neutrophil abs 9.57(H) 1.70 - 6.50 K/cumm [facility] Lymphs, abs 4.37(H) 0.80 - 3.30 K/cumm [facility] Monos, abs 1.98(H) 0.20 - 0.80 K/cumm [facility] Immature granulocyte, abs 0.14(H) 0.00 - 0.10 K/cumm [facility] Blood specimen (specimen) 11/30/2017 2:55 AM CITY CONTROLLER 11/30/2017 3:39 AM CITY CONTROLLER Narrative [facility] - 11/30/2017 4:25 AM CITY CONTROLLER Michael Perrin MD LAB BLOOD ORDERABLES Final Result [facility] Department [place] [address] * (ABNORMAL) Basic metabolic panel (11/30/2017 2:55 AM CITY CONTROLLER) Sodium 135 135 - 145 mmol/L [facility] Potassium, pl 4.0 3.3 - 4.9 mmol/L [facility] Chloride 99 97 - 110 mmol/L [facility] CO2 28 22 - 32 mmol/L [facility] BUN 16 8 - 25 mg/dL [facility] Glucose 108 70 - 199 mg/dL [facility] Comment: Interpretive Data Fasting glucose >/= [...] interpretive data was last revised 2017. Creatinine 0.69(L) 0.80 - 1.30 mg/dL [facility] Calcium 8.3(L) 8.5 - 10.3 mg/dL [facility] Anion gap 8 2 - 15 mmol/L [facility] Blood specimen (specimen) 11/30/2017 2:55 AM CITY CONTROLLER 11/30/2017 3:39 AM CITY CONTROLLER Narrative [facility] - 11/30/2017 4:06 AM CITY CONTROLLER Michael Perrin MD LAB BLOOD ORDERABLES Final Result Performing Organization Address [facility] de Phone Number [facility] [place] [address] * Magnesium (11/30/2017 2:55 AM CITY CONTROLLER) Pathologist [facility] [place] Magnesium 1.9 1.4 - 2.5 mg/dL [facility] Blood specimen (specimen) 11/30/2017 2:55 AM CITY CONTROLLER 11/30/2017 3:39 AM CITY CONTROLLER Narrative [facility] - 11/30/2017 4:06 AM CITY CONTROLLER Michael Perrin MD LAB BLOOD ORDERABLES Final Result Performing Organization Address [facility] [place] [address] * Phosphorus (11/30/2017 2:55 AM CITY CONTROLLER) [facility] Phosphorus, pl 2.3 2.3 - 4.5 mg/dL [facility] Blood specimen (specimen) 11/30/2017 2:55 AM CITY CONTROLLER 11/30/2017 3:39 AM CITY CONTROLLER Narrative [facility] - 11/30/2017 4:06 AM CITY CONTROLLER Michael Perrin MD LAB BLOOD ORDERABLES Final Result Performing Organization Address [facility] Co de Phone Number [facility] [place] [address] * (ABNORMAL) CBC without differential (11/30/2017 2:55 AM CITY CONTROLLER) [facility] WBC 16.06(H) 3.80 - 9.90 K/cumm [facility] RBC 3.40(L) 4.30 - 5.80 M/cumm [facility] Hgb 11.6(L) 13.0 - 17.5 g/dL [facility] Hct 33.7(L) 38.9 - 50.3 % [facility] MCV 99.1(H) 81.3 - 96.4 fL [facility] MCH 34.1(H) 27.1 - 33.3 pg [facility] MCHC 34.4 32.3 - 35.7 g/dL [facility] RDW CV 15.8(H) 11.1 - 14.9 % [facility] RDW SD 57.0(H) 35.7 - 48.1 fL [facility] NRBC 0.6(H) 0.0 - 0.2 % [facility] NRBC abs 0.10(H) 0.00 - 0.01 K/cumm [facility] Plt 131(L) 150 - 400 K/cumm [facility] MPV 11.6 9.1 - 12.3 fL [facility] Blood specimen (specimen) 11/30/2017 2:55 AM CITY CONTROLLER 11/30/2017 3:39 AM CITY CONTROLLER Narrative [facility] - 11/30/2017 3:57 AM CITY CONTROLLER us Michael Perrin MD LAB BLOOD ORDERABLES Final Result [facility] [place] [address] * Glucose POC (11/29/2017 8:20 PM CITY CONTROLLER) [facility] Glucose, POC 111 70 - 199 mg/dL [facility] Blood specimen (specimen) 11/29/2017 8:20 PM CITY CONTROLLER 11/29/2017 8:20 PM CITY CONTROLLER Narrative [facility] - 11/29/2017 8:31 PM CITY CONTROLLER us Francis Park MD PhD POINT OF CARE TEST ORDER SUBHA Final Result [facility] [place] [address] * Glucose POC (11/29/2017 6:12 PM CITY CONTROLLER) Glucose, POC 135 70 - 199 mg/dL [facility] Blood specimen (specimen) 11/29/2017 6:12 PM CITY CONTROLLER 11/29/2017 6:12 PM CITY CONTROLLER Narrative [facility] - 11/29/2017 6:38 PM CITY CONTROLLER Francis Park MD PhD POINT OF CARE TEST ORDER SUBAH Final Result [facility] [place] [address] * Glucose POC (11/29/2017 1:04 PM CITY CONTROLLER) Glucose, POC 123 70 - 199 mg/dL [facility] Glucose comment 1 RN Notified [facility] Blood specimen (specimen) 11/29/2017 1:04 PM CITY CONTROLLER 11/29/2017 1:04 PM CITY CONTROLLER Narrative [facility] - 11/29/2017 1:27 PM CITY CONTROLLER Francis Park MD PhD POINT OF CARE TEST ORDER SUBHA Final Result Performing Organization Address [facility]/ZIP Co de Phone Number [facility] [place] [address] * Glucose POC (11/29/2017 9:19 AM CITY CONTROLLER) Glucose, POC 114 70 - 199 mg/dL [facility] Glucose comment 1 RN Notified [facility] Blood specimen (specimen) 11/29/2017 9:19 AM CITY CONTROLLER 11/29/2017 9:19 AM CITY CONTROLLER Narrative [facility] - 11/29/2017 9:39 AM CITY CONTROLLER Francis Park MD PhD POINT OF CARE TEST ORDER SUBHA Final Result [facility] [place] [address] * (ABNORMAL) Calcium, ionized (11/29/2017 9:09 AM CITY CONTROLLER) [facility] Calcium, Ionized 4.30(L) 4.50 - 5.10 mg/dL [facility] Blood specimen (specimen) 11/29/2017 9:09 AM CITY CONTROLLER 11/29/2017 9:52 AM CITY CONTROLLER Narrative [facility] - 11/29/2017 10:06 AM CITY CONTROLLER Michael Perrin MD LAB BLOOD [place] [address] * (ABNORMAL) Troponin I (11/29/2017 9:08 AM CITY CONTROLLER) [facility] Troponin I 0.06(H) 0.00 - 0.03 ng/mL [facility] Comment: Interpretive Data Serial determinations are recommended for the diagnosis of myocardial infarction (Third Hartwell Definition of Myocardial Infarction. ??J Am Kizzy Cardiol 2012;60:1581-98). Current interpretive data was last revised on 13. Blood specimen (specimen) 11/29/2017 9:08 AM CITY CONTROLLER 11/29/2017 10:20 AM CITY CONTROLLER Narrative [facility] - 11/29/2017 10:52 AM CITY CONTROLLER us Reena Anderson LAB BLOOD [place] [address] * (ABNORMAL) Basic metabolic panel (11/29/2017 6:13 AM CITY CONTROLLER) [facility] Sodium 136 135 - 145 mmol/L [facility] Potassium, pl 4.0 3.3 - 4.9 mmol/L [facility] Chloride 101 97 - 110 mmol/L [facility] CO2 27 22 - 32 mmol/L [facility] BUN 15 8 - 25 mg/dL [facility] Glucose 101 70 - 199 mg/dL [facility] Comment: Interpretive Data Fasting glucose >/= [...] interpretive data was last revised 2017. Creatinine 0.60(L) 0.80 - 1.30 mg/dL [facility] Calcium 8.1(L) 8.5 - 10.3 mg/dL [facility] Anion gap 8 2 - 15 mmol/L [facility] Blood specimen (specimen) 11/29/2017 6:13 AM CITY CONTROLLER 11/29/2017 7:46 AM CITY CONTROLLER Narrative [facility] - 11/29/2017 8:17 AM CITY CONTROLLER us Michael Perrin MD LAB BLOOD ORDERABLES Final Result [facility] Department [place] [address] * (ABNORMAL) Morphology exam (11/29/2017 4:33 AM CITY CONTROLLER) Neutrophils 84.0 % [facility] Lymphocytes 6.6 % [facility] Monos 6.6 % [facility] Eosinophils 1.9 % [facility] Promyelocyte pct 0.9 % [facility] Platelet estimate Decreased (A) [facility] Anisocytosis 2+(A) [facility] Macrocytes 8-15/HPF( A) [facility] WBC counted 106 Cells [facility] RBC morphology Present(A ) [facility] Neutrophil abs 10.78(H) 1.70 - 6.50 K/cumm [facility] Lymphs, abs 0.85 0.80 - 3.30 K/cumm [facility] Monos, abs 0.85(H) 0.20 - 0.80 K/cumm [facility] Eosinophils, abs 0.24 0.00 - 0.50 K/cumm [facility] Immature granulocyte, abs 0.12(H) 0.00 - 0.10 K/cumm [facility] Blood specimen (specimen) 11/29/2017 4:33 AM CITY CONTROLLER 11/29/2017 5:14 AM CITY CONTROLLER Narrative [facility] - 11/29/2017 6:40 AM CITY CONTROLLER us Michael Perrin MD LAB BLOOD ORDERABLES Final Result [facility] Department [place] [address] * (ABNORMAL) Basic metabolic panel (11/29/2017 4:33 AM CITY CONTROLLER) Pathologist [facility] [place] Sodium 136 135 - 145 mmol/L [facility] Potassium, pl 3.9 3.3 - 4.9 mmol/L [facility] Comment:Hemolyzed; (++); pot assium value may be falsely elevated by as much as 0.3 - 0.5 mmol/L. Suggest redraw and reanalysis. Chloride 105 97 - 110 mmol/L [facility] CO2 24 22 - 32 mmol/L [facility] BUN 14 8 - 25 mg/dL [facility] Glucose 91 70 - 199 mg/dL [facility] Comment: Interpretive Data Fasting glucose >/= [...] interpretive data was last revised 2017. Creatinine 0.52(L) 0.80 - 1.30 mg/dL [facility] Calcium 6.8(L) 8.5 - 10.3 mg/dL [facility] Anion gap 6 2 - 15 mmol/L [facility] Blood specimen (specimen) 11/29/2017 4:33 AM CITY CONTROLLER 11/29/2017 5:04 AM CITY CONTROLLER Narrative [facility] - 11/29/2017 5:51 AM CITY CONTROLLER Michael Perrin MD LAB BLOOD ORDERABLES Final Result Performing Organization Address City/[facility]/ZIP Co de Phone Number [facility] Department [place] [address] * (ABNORMAL) Magnesium (11/29/2017 4:33 AM CITY CONTROLLER) Magnesium 1.3(L) 1.4 - 2.5 mg/dL [facility] Blood specimen (specimen) 11/29/2017 4:33 AM CITY CONTROLLER 11/29/2017 5:04 AM CITY CONTROLLER Narrative [facility] - 11/29/2017 5:51 AM CITY CONTROLLER Michael Perrin MD LAB BLOOD ORDERABLES Final Result [facility] Department [place] [address] * (ABNORMAL) Phosphorus (11/29/2017 4:33 AM CITY CONTROLLER) Phosphorus, pl 1.9(L) 2.3 - 4.5 mg/dL [facility] Blood specimen (specimen) 11/29/2017 4:33 AM CITY CONTROLLER 11/29/2017 5:04 AM CITY CONTROLLER Narrative [facility] - 11/29/2017 5:51 AM CITY CONTROLLER Michael Perrin MD LAB BLOOD ORDERABLES Final Result [facility] Department [place] [address] * (ABNORMAL) CBC without differential (11/29/2017 4:33 AM CITY CONTROLLER) [facility] WBC 12.83(H) 3.80 - 9.90 K/cumm [facility] RBC 2.56(L) 4.30 - 5.80 M/cumm [facility] Hgb 8.9(L) 13.0 - 17.5 g/dL [facility] Hct 25.6(L) 38.9 - 50.3 % [facility] MCV 100.0(H) 81.3 - 96.4 fL [facility] MCH 34.8(H) 27.1 - 33.3 pg [facility] MCHC 34.8 32.3 - 35.7 g/dL [facility] RDW CV 16.1(H) 11.1 - 14.9 % [facility] RDW SD 58.7(H) 35.7 - 48.1 fL [facility] NRBC 1.2(H) 0.0 - 0.2 % [facility] NRBC abs 0.16(H) 0.00 - 0.01 K/cumm [facility] Plt 79(L) 150 - 400 K/cumm [facility] MPV 12.3 9.1 - 12.3 fL [facility] Blood specimen (specimen) 11/29/2017 4:33 AM CITY CONTROLLER 11/29/2017 5:14 AM CITY CONTROLLER Narrative [facility] - 11/29/2017 5:22 AM CITY CONTROLLER us Michael Perrin MD LAB BLOOD ORDERABLES Final Result [facility] Department [place] [address] * Glucose POC (11/28/2017 8:01 PM CITY CONTROLLER) Pathologist [facility] [place] Glucose, POC 120 70 - 199 mg/dL [facility] Blood specimen (specimen) 11/28/2017 8:01 PM CITY CONTROLLER 11/28/2017 8:01 PM CITY CONTROLLER Narrative [facility] - 11/28/2017 8:12 PM CITY CONTROLLER Francis Park MD PhD POINT OF CARE TEST ORDER SUBHA Final Result Performing Organization Address [facility]/ZIP Co de Phone Number [facility] Department [place] [address] * Glucose POC (11/28/2017 5:41 PM CITY CONTROLLER) Pathologist [facility] [place] Glucose, POC 110 70 - 199 mg/dL [facility] Blood specimen (specimen) 11/28/2017 5:41 PM CITY CONTROLLER 11/28/2017 5:41 PM CITY CONTROLLER Narrative [facility] - 11/28/2017 6:16 PM CITY CONTROLLER Francis Park MD PhD POINT OF CARE TEST ORDER SUBHA Final Result Performing Organization Address [facility] Co de Phone Number [facility] Department [place] [address] * Glucose POC (11/28/2017 3:04 PM CITY CONTROLLER) [facility] Glucose, POC 112 70 - 199 mg/dL [facility] Blood specimen (specimen) 11/28/2017 3:04 PM CITY CONTROLLER 11/28/2017 3:04 PM CITY CONTROLLER Narrative [facility] - 11/28/2017 3:21 PM CITY CONTROLLER Francis Park MD PhD POINT OF CARE TEST ORDER SUBHA Final Result Performing Organization Address [facility] Co de Phone Number [facility] [place] [address] * IgG (11/28/2017 12:58 PM CITY CONTROLLER) Immunoglobulin G 897.0 700.0 - 1,600.0 mg/dL [facility] Blood specimen (specimen) 11/28/2017 12:58 PM CITY CONTROLLER 11/28/2017 2:01 PM CITY CONTROLLER Narrative [facility] - 11/28/2017 2:30 PM CITY CONTROLLER [employer] LAB BLOOD ORDERABLES Final Resul t Performing Organization Address [facility] de Phone Number [facility] Department [place] [address] * Heparin anti factor Xa activity (11/28/2017 12:58 PM CITY CONTROLLER) [facility] Anti Factor Xa 0.47 0.30 - 0.70 IUnits/mL [facility] Comment: Interpretive Data Unfractionated Heparin (UFH)Therapeutic range: 0.3-0.7 IUnits/ml Low molecular weight heparin therapeutic guidelines* 1.VTE prevention 0.1 - 0.2 IUnits/ml 2.VTE treatment without renal impairment Q 12 hour dosing 0.6 - 1.0 IUnits/ml Q 24 hour dosing 1.0 - 2.0 IUnits/ml 3.VTE treatment with renal impairment (Creatinine Clearance Rate <30 ml/min) Q 24 hour dosing 0.6 - 1.0 IUnits/ml *Collect blood 4 hours after last subcutaneous injection Current interpretive data was last revised on 2011. Blood specimen (specimen) 11/28/2017 12:58 PM CITY CONTROLLER 11/28/2017 1:49 PM CITY CONTROLLER Narrative [facility] - 11/28/2017 2:25 PM CITY CONTROLLER [employer] LAB BLOOD ORDERABLES Final Resul t Performing Organization Address [facility] de Phone Number [facility] Department [place] [address] * Tacrolimus level trough (11/28/2017 8:57 AM CITY CONTROLLER) Pathologist [facility] [place] Tacrolimus, trough 4.3 ng/mL [facility] Comment: Interpretive Data The therapeutic range for tacrolimus can vary by transplant organ type and sample timing but a trough range of 5 - 15 ng/mL is typical. Testing performed by liquid chromatography-tandem mass spectrometry (LC- MS/MS).This test was developed using an analyte specific reagent. Its performance characteristics were determined by the [facility] in a manner consistent with CLIA requirements. This test has not been cleared or approved by the U.S. Food and Drug Administration. Current interpretive data was last revised on 2016. Blood specimen (specimen) 11/28/2017 8:57 AM CITY CONTROLLER 11/28/2017 9:59 AM CITY CONTROLLER Narrative [facility] - 11/28/2017 1:05 PM CITY CONTROLLER Reena Anderson [facility] BLOOD ORDERABLES Final Resul t [facility] Department [place] [address] * (ABNORMAL) Basic metabolic panel (11/28/2017 8:57 AM CITY CONTROLLER) Sodium 136 135 - 145 mmol/L [facility] Potassium, pl 5.0(H) 3.3 - 4.9 mmol/L [facility] Comment:Hemolyzed; (+++); po tassium value may be falsely elevated by as much as 0.6 - 1.0 mmol/L. Suggest redraw and reanalysis. Chloride 103 97 - 110 mmol/L [facility] CO2 25 22 - 32 mmol/L [facility] BUN 19 8 - 25 mg/dL [facility] Glucose 71 70 - 199 mg/dL [facility] Comment: Interpretive Data Fasting glucose >/= [...] interpretive data was last revised 2017. Creatinine 0.54(L) 0.80 - 1.30 mg/dL [facility] Calcium 7.4(L) 8.5 - 10.3 mg/dL [facility] Anion gap 8 2 - 15 mmol/L [facility] Blood specimen (specimen) 11/28/2017 8:57 AM CITY CONTROLLER 11/28/2017 9:42 AM CITY CONTROLLER Narrative [facility] - 11/28/2017 10:05 AM CITY CONTROLLER Reena Anderson LAB BLOOD ORDERABLES Final Resul t Performing Organization Address City/[facility]/ZIP Co de Phone Number [facility] [place] [address] * Glucose POC (11/28/2017 8:37 AM CITY CONTROLLER) Glucose, POC 83 70 - 199 mg/dL [facility] Blood specimen (specimen) 11/28/2017 8:37 AM CITY CONTROLLER 11/28/2017 8:37 AM CITY CONTROLLER Narrative [facility] - 11/28/2017 8:56 AM CITY CONTROLLER Francis Park MD PhD POINT OF CARE TEST ORDER SUBHA Final Result Performing Organization Address City/[facility]/ZIP Co de Phone Number [facility] [place] [address] * Glucose POC (11/28/2017 6:37 AM CITY CONTROLLER) Glucose, POC 144 70 - 199 mg/dL [facility] Blood specimen (specimen) 11/28/2017 6:37 AM CITY CONTROLLER 11/28/2017 6:37 AM CITY CONTROLLER Narrative [facility] - 11/28/2017 6:48 AM CITY CONTROLLER Francis Park MD PhD POINT OF CARE TEST ORDER SUBHA Final Result [facility] [place] [address] * Type and screen (11/28/2017 4:38 AM CITY CONTROLLER) Pathologist [facility] [facility] [place], indirect Negative [facility] ABO Rh A Positive [facility] Blood specimen (specimen) 11/28/2017 4:38 AM CITY CONTROLLER 11/28/2017 5:48 AM CITY CONTROLLER Narrative [facility] - 11/28/2017 8:37 AM CITY CONTROLLER us Dora Abdalla LAB BLOOD BANK TEST ORDERABLES F inal Result Performing Organization Address [facility] de Phone Number [facility] [place] [address] * (ABNORMAL) Creatinine (11/28/2017 3:57 AM CITY CONTROLLER) [facility] Creatinine 0.65(L) 0.80 - 1.30 mg/dL [facility] Blood specimen (specimen) 11/28/2017 3:57 AM CITY CONTROLLER 11/28/2017 5:02 AM CITY CONTROLLER Narrative [facility] - 11/28/2017 5:58 AM CITY CONTROLLER us Reena Anderson LAB BLOOD ORDERABLES Final Resul t Performing Organization Address [facility] de Phone Number [facility] [place] [address] * Protime-INR (11/28/2017 3:57 AM CITY CONTROLLER) Pathologist [facility] [place] PT 12.1 8.5 - 13.0 sec [facility] INR 1.13 0.80 - 1.21 [facility] Comment: Interpretive Data Inpatient therapeutic ranges* Atrial fibrillation ?2.0-3.0 INR Venous thrombo-embolism ?2.0-3.0 INR Bioprosthetic heart valve ?* Mechanical heart valve, bileaflet or tilting disk,aortic position ? 2.0-3.0 INR All other,or bileaflet or tilting disk, in mitral position ? 2.5-3.5 INR *See the pharmacy resource directory (PHRED) for an updated copy of the Tool Book at [email or web address] Current Interpretive Data was last revised 2012. Blood specimen (specimen) 11/28/2017 3:57 AM CITY CONTROLLER 11/28/2017 5:15 AM CITY CONTROLLER Narrative [facility] - 11/28/2017 5:32 AM CITY CONTROLLER us Kurt Stephenson EXPLOSIVE ORDNANCE DISPOSAL TECHNICIAN LAB BLOOD ORDERABLES Final R esult [facility] Department [place] [address] * (ABNORMAL) CBC without differential (11/28/2017 3:57 AM CITY CONTROLLER) WBC 18.93(H) 3.80 - 9.90 K/cumm [facility] RBC 3.31(L) 4.30 - 5.80 M/cumm [facility] Hgb 11.2(L) 13.0 - 17.5 g/dL [facility] Hct 32.6(L) 38.9 - 50.3 % [facility] MCV 98.5(H) 81.3 - 96.4 fL [facility] MCH 33.8(H) 27.1 - 33.3 pg [facility] MCHC 34.4 32.3 - 35.7 g/dL [facility] RDW CV 16.5(H) 11.1 - 14.9 % [facility] RDW SD 60.0(H) 35.7 - 48.1 fL [facility] NRBC 1.0(H) 0.0 - 0.2 % [facility] NRBC abs 0.19(H) 0.00 - 0.01 K/cumm [facility] Plt 87(L) 150 - 400 K/cumm [facility] MPV 12.4(H) 9.1 - 12.3 fL [facility] Blood specimen (specimen) 11/28/2017 3:57 AM CITY CONTROLLER 11/28/2017 5:19 AM CITY CONTROLLER Narrative [facility] - 11/28/2017 5:27 AM CITY CONTROLLER Kurt Stephenson EXPLOSIVE ORDNANCE DISPOSAL TECHNICIAN LAB BLOOD ORDERABLES Final R esult Performing Organization Address [facility] Co de Phone Number [facility] [place] [address] * Potassium (11/28/2017 12:50 AM CITY CONTROLLER) Potassium, pl 4.0 3.3 - 4.9 mmol/L [facility] Blood specimen (specimen) 11/28/2017 12:50 AM CITY CONTROLLER 11/28/2017 1:30 AM CITY CONTROLLER Narrative [facility] - 11/28/2017 3:14 AM CITY CONTROLLER Reena Anderson LAB BLOOD ORDERABLES Final Resul t Performing Organization Address [facility]/ZIP Co de Phone Number [facility] [place] [address] * Critical Result Callback Chemistry (11/28/2017 12:50 AM CITY CONTROLLER) Date Notified [id number] [facility] Time Notified 235 [facility] TestName vancomycin odilia DENT Called/Read Back amanda POOLE [facility] Credentials RN ZULEMA DENT Called By cs [facility] Blood specimen (specimen) 11/28/2017 12:50 AM CITY CONTROLLER 11/28/2017 1:30 AM CITY CONTROLLER Narrative [facility] - 11/28/2017 2:37 AM CITY CONTROLLER Reena [employer] LAB BLOOD ORDERABLES Final Resul t Performing Organization Address [facility] de Phone Number [facility] [place] [address] * (ABNORMAL) Vancomycin, trough (11/28/2017 12:50 AM CITY CONTROLLER) Vancomycin trough 22.3(C) 10.0 - 20.9 mcg/mL [facility] Blood specimen (specimen) 11/28/2017 12:50 AM CITY CONTROLLER 11/28/2017 1:30 AM CITY CONTROLLER Narrative [facility] - 11/28/2017 2:32 AM CITY CONTROLLER Reena [facility] LAB BLOOD ORDERABLES Final Resul t Performing Organization Address [facility] Co de Phone Number [facility] [place] [address] * Glucose POC (11/27/2017 10:35 PM CITY CONTROLLER) Glucose, POC 82 70 - 199 mg/dL [facility] Blood specimen (specimen) 11/27/2017 10:35 PM CITY CONTROLLER 11/27/2017 10:35 PM CITY CONTROLLER Narrative [facility] - 11/27/2017 10:53 PM CITY CONTROLLER Francis Park MD PhD POINT OF CARE TEST ORDER SUBHA Final Result Performing Organization Address [facility] Co de Phone Number [facility] [place] [address] * Glucose POC (11/27/2017 9:32 PM CITY CONTROLLER) Glucose, POC 76 70 - 199 mg/dL [facility] Blood specimen (specimen) 11/27/2017 9:32 PM CITY CONTROLLER 11/27/2017 9:32 PM CITY CONTROLLER Narrative [facility] - 11/27/2017 10:15 PM CITY CONTROLLER us Francis Park MD PhD POINT OF CARE TEST ORDER SUBHA Final Result Performing Organization Address [facility] Co de Phone Number [facility] [place] [address] * Glucose POC (11/27/2017 6:04 PM CITY CONTROLLER) Glucose, POC 79 70 - 199 mg/dL [facility] Blood specimen (specimen) 11/27/2017 6:04 PM CITY CONTROLLER 11/27/2017 6:04 PM CITY CONTROLLER Narrative [facility] - 11/27/2017 6:17 PM CITY CONTROLLER us Francis Park MD PhD POINT OF CARE TEST ORDER SUBHA Final Result Performing Organization Address [facility] de Phone Number [facility] [place] [address] * Glucose POC (11/27/2017 11:20 AM CITY CONTROLLER) Glucose, POC 86 70 - 199 mg/dL [facility] Blood specimen (specimen) 11/27/2017 11:20 AM CITY CONTROLLER 11/27/2017 11:20 AM CITY CONTROLLER Narrative [facility] - 11/27/2017 11:40 AM CITY CONTROLLER us Francis Park MD PhD POINT OF CARE TEST ORDER SUBHA Final Result Performing Organization Address [facility] [place] [address] * Glucose POC (11/27/2017 9:29 AM CITY CONTROLLER) Glucose, POC 85 70 - 199 mg/dL [facility] Blood specimen (specimen) 11/27/2017 9:29 AM CITY CONTROLLER 11/27/2017 9:29 AM CITY CONTROLLER Narrative [facility] - 11/27/2017 9:49 AM [facility] us Francis Park MD PhD POINT OF CARE TEST ORDER SUBHA Final Result [facility] Department [place] [address] * (ABNORMAL) Comprehensive metabolic panel (11/27/2017 4:03 AM CITY CONTROLLER) Pathologist [facility] [place] Sodium 141 135 - 145 mmol/L [facility] Potassium, pl 4.5 3.3 - 4.9 mmol/L [facility] Comment:Hemolyzed; (++); pot assium value may be falsely elevated by as much as 0.3 - 0.5 mmol/L. Suggest redraw and reanalysis. CO2 28 22 - 32 mmol/L [facility] BUN 30(H) 8 - 25 mg/dL [facility] Glucose 73 70 - 199 mg/dL [facility] Comment: Interpretive Data Fasting glucose >/= [...] interpretive data was last revised 2017. Creatinine 0.66(L) 0.80 - 1.30 mg/dL [facility] Calcium 7.9(L) 8.5 - 10.3 mg/dL [facility] Chloride 106 97 - 110 mmol/L [facility] Albumin 2.1(L) 3.5 - 5.0 g/dL [facility] AST 50 10 - 50 Units/L [facility] Comment:Hemolyzed; result ma y be falsely elevated. ALT 31 7 - 55 Units/L [facility] Alk phos 294(H) 40 - 130 Units/L [facility] Bilirubin, total 0.6 0.1 - 1.2 mg/dL [facility] Protein, pl 5.2(L) 6.5 - 8.5 g/dL [facility] Anion gap 7 2 - 15 mmol/L [facility] Blood specimen (specimen) 11/27/2017 4:03 AM CITY CONTROLLER 11/27/2017 5:52 AM CITY CONTROLLER Narrative [facility] - 11/27/2017 6:56 AM CITY CONTROLLER us Kurt Stephenson EXPLOSIVE ORDNANCE DISPOSAL TECHNICIAN LAB BLOOD ORDERABLES Final R esult Performing Organization Address [facility]/ZIP Co de Phone Number [facility] [place] [address] * Magnesium (11/27/2017 4:03 AM CITY CONTROLLER) Magnesium 2.2 1.4 - 2.5 mg/dL [facility] Blood specimen (specimen) 11/27/2017 4:03 AM CITY CONTROLLER 11/27/2017 5:52 AM CITY CONTROLLER Narrative [facility] - 11/27/2017 6:56 AM CITY CONTROLLER us Kurt Stephenson EXPLOSIVE ORDNANCE DISPOSAL TECHNICIAN LAB BLOOD ORDERABLES Final R esult Performing Organization Address [facility]/ZIP Co de Phone Number [facility] [place] [address] * (ABNORMAL) Phosphorus (11/27/2017 4:03 AM CITY CONTROLLER) Phosphorus, pl 1.6(L) 2.3 - 4.5 mg/dL [facility] Blood specimen (specimen) 11/27/2017 4:03 AM CITY CONTROLLER 11/27/2017 5:52 AM CITY CONTROLLER Narrative [facility] - 11/27/2017 6:56 AM CITY CONTROLLER us Kurt Stephenson EXPLOSIVE ORDNANCE DISPOSAL TECHNICIAN LAB BLOOD ORDERABLES Final R esult Performing Organization Address [facility] Co de Phone Number [facility] [place] [address] * Heparin anti factor Xa activity (11/27/2017 1:18 AM CITY CONTROLLER) Pathologist [facility] [place] Anti Factor Xa 0.46 0.30 - 0.70 IUnits/mL [facility] Comment: Interpretive Data Unfractionated Heparin (UFH)Therapeutic range: 0.3-0.7 IUnits/ml Low molecular weight heparin therapeutic guidelines* 1.VTE prevention 0.1 - 0.2 IUnits/ml 2.VTE treatment without renal impairment Q 12 hour dosing 0.6 - 1.0 IUnits/ml Q 24 hour dosing 1.0 - 2.0 IUnits/ml 3.VTE treatment with renal impairment (Creatinine Clearance Rate <30 ml/min) Q 24 hour dosing 0.6 - 1.0 IUnits/ml *Collect blood 4 hours after last subcutaneous injection Current interpretive data was last revised on 2011. Blood specimen (specimen) 11/27/2017 1:18 AM CITY CONTROLLER 11/27/2017 2:25 AM CITY CONTROLLER Narrative [facility] - 11/27/2017 2:52 AM CITY CONTROLLER Anais Chou NP LAB BLOOD ORDERABLES Final Result Performing Organization Address [facility] Co de Phone Number [facility] [place] [address] * (ABNORMAL) Basic metabolic panel (11/27/2017 1:12 AM CITY CONTROLLER) Pathologist [facility] [place] Sodium 140 135 - 145 mmol/L [facility] Potassium, pl See Comment 3.3 - 4.9 mmol/L [facility] Comment:CRDT; Grossly Hemoly zed sample; Unable to test. Chloride 107 97 - 110 mmol/L [facility] CO2 27 22 - 32 mmol/L [facility] BUN 32(H) 8 - 25 mg/dL [facility] Glucose 94 70 - 199 mg/dL [facility] Comment: Interpretive Data Fasting glucose >/= [...] interpretive data was last revised 2017. Creatinine 0.64(L) 0.80 - 1.30 mg/dL [facility] Calcium 7.8(L) 8.5 - 10.3 mg/dL [facility] Anion gap 6 2 - 15 mmol/L [facility] Blood specimen (specimen) 11/27/2017 1:12 AM CITY CONTROLLER 11/27/2017 2:34 AM CITY CONTROLLER Narrative [facility] - 11/27/2017 3:01 AM CITY CONTROLLER Kurt Stephenson EXPLOSIVE ORDNANCE DISPOSAL TECHNICIAN LAB BLOOD ORDERABLES Final R esult Performing Organization Address [facility]/ZIP Co de Phone Number [facility] [place] [address] * Magnesium (11/27/2017 1:12 AM CITY CONTROLLER) [facility] Magnesium 2.3 1.4 - 2.5 mg/dL [facility] Blood specimen (specimen) 11/27/2017 1:12 AM CITY CONTROLLER 11/27/2017 2:34 AM CITY CONTROLLER Narrative [facility] - 11/27/2017 3:01 AM CITY CONTROLLER Kurt Stephenson EXPLOSIVE ORDNANCE DISPOSAL TECHNICIAN LAB BLOOD ORDERABLES Final R esult [facility] [place] [address] * (ABNORMAL) Phosphorus (11/27/2017 1:12 AM CITY CONTROLLER) [facility] Phosphorus, pl 1.7(L) 2.3 - 4.5 mg/dL [facility] Comment:Hemolyzed; result ma y be falsely elevated. Blood specimen (specimen) 11/27/2017 1:12 AM CITY CONTROLLER 11/27/2017 2:34 AM CITY CONTROLLER Narrative [facility] - 11/27/2017 3:01 AM [facility] us Kurt Stephenson EXPLOSIVE ORDNANCE DISPOSAL TECHNICIAN LAB BLOOD ORDERABLES Final R esult [facility] [place] [address] * Protime-INR (11/27/2017 1:12 AM CITY CONTROLLER) [facility] PT 11.1 8.5 - 13.0 sec [facility] INR 1.04 0.80 - 1.21 [facility] Comment: Interpretive Data Inpatient therapeutic ranges* Atrial fibrillation ?2.0-3.0 INR Venous thrombo-embolism ?2.0-3.0 INR Bioprosthetic heart valve ?* Mechanical heart valve, bileaflet or tilting disk,aortic position ? 2.0-3.0 INR All other,or bileaflet or tilting disk, in mitral position ? 2.5-3.5 INR *See the pharmacy resource directory (PHRED) for an updated copy of the Tool Book at [email or web address] Current Interpretive Data was last revised 2012. Blood specimen (specimen) 11/27/2017 1:12 AM CITY CONTROLLER 11/27/2017 2:25 AM CITY CONTROLLER Narrative [facility] - 11/27/2017 2:53 AM CITY CONTROLLER us Kurt Stephenson EXPLOSIVE ORDNANCE DISPOSAL TECHNICIAN LAB BLOOD ORDERABLES Final R esult [facility] [place] [address] * (ABNORMAL) CBC without differential (11/27/2017 1:12 AM CITY CONTROLLER) [facility] WBC 30.70(H) 3.80 - 9.90 K/cumm [facility] RBC 3.00(L) 4.30 - 5.80 M/cumm [facility] Hgb 10.5(L) 13.0 - 17.5 g/dL [facility] Hct 29.4(L) 38.9 - 50.3 % [facility] MCV 98.0(H) 81.3 - 96.4 fL [facility] MCH 35.0(H) 27.1 - 33.3 pg [facility] MCHC 35.7 32.3 - 35.7 g/dL [facility] RDW CV 17.5(H) 11.1 - 14.9 % [facility] RDW SD 62.5(H) 35.7 - 48.1 fL [facility] NRBC 0.4(H) 0.0 - 0.2 % [facility] NRBC abs 0.11(H) 0.00 - 0.01 K/cumm [facility] Plt 70(L) 150 - 400 K/cumm [facility] MPV 13.3(H) 9.1 - 12.3 fL [facility] Blood specimen (specimen) 11/27/2017 1:12 AM CITY CONTROLLER 11/27/2017 2:06 AM CITY CONTROLLER Narrative [facility] - 11/27/2017 3:21 AM CITY CONTROLLER us Kurt Stephenson EXPLOSIVE ORDNANCE DISPOSAL TECHNICIAN LAB BLOOD ORDERABLES Final R esult [facility] [place] [address] * Glucose POC (11/26/2017 8:32 PM CITY CONTROLLER) Glucose, POC 136 70 - 199 mg/dL [facility] Blood specimen (specimen) 11/26/2017 8:32 PM CITY CONTROLLER 11/26/2017 8:32 PM CITY CONTROLLER Narrative [facility] - 11/26/2017 8:51 PM CITY CONTROLLER us Francis Park MD PhD POINT OF CARE TEST ORDER SUBHA Final Result [facility] [place] [address] * (ABNORMAL) Glucose POC (11/26/2017 6:01 PM CITY CONTROLLER) Glucose, POC 220(H) 70 - 199 mg/dL [facility] Blood specimen (specimen) 11/26/2017 6:01 PM CITY CONTROLLER 11/26/2017 6:01 PM CITY CONTROLLER Narrative [facility] - 11/26/2017 6:14 PM CITY CONTROLLER us Francis Park MD PhD POINT OF CARE TEST ORDER SUBHA Final Result Performing Organization Address [facility]/ZIP Co de Phone Number [facility] [place] [address] * Glucose POC (11/26/2017 12:05 PM CITY CONTROLLER) Glucose, POC 167 70 - 199 mg/dL [facility] Blood specimen (specimen) 11/26/2017 12:05 PM CITY CONTROLLER 11/26/2017 12:05 PM CITY CONTROLLER Narrative [facility] - 11/26/2017 12:17 PM CITY CONTROLLER us Sourav Callejas MD POINT OF CARE TEST ORDERABLES Final Result [facility] [place] [address] * Clostridium difficile assay (11/26/2017 10:31 AM CITY CONTROLLER) Report Final Report: Negative for: Clostridium difficile toxin. [facility] Stool 11/26/2017 10:3 1 AM CITY CONTROLLER 11/26/2017 10:32 AM CITY CONTROLLER Narrative [facility] - 11/26/2017 10:32 AM CITY CONTROLLER us Johnathon Nuñez EXPLOSIVE ORDNANCE DISPOSAL TECHNICIAN LAB MICROBIOLOGY - GENERAL ORDERABLES Final Result Performing Organization Address [facility]/ZIP Co de Phone Number [facility] [place] [address] * VRE culture, surveillance (11/26/2017 10:30 AM CITY CONTROLLER) Report Final Report: Negative [facility] Stool 11/26/2017 10:3 0 AM CITY CONTROLLER 11/27/2017 6:35 AM CITY CONTROLLER Narrative [facility] - 11/28/2017 7:21 AM CITY CONTROLLER us Francis Park MD PhD LAB MICROBIOLOGY - GENER AL ORDERABLES Final Result Performing Organization Address [facility] Co de Phone Number [facility] [place] [address] * XR Chest 1 Vw (11/26/2017 9:37 AM CITY CONTROLLER) Anatomical Region Laterality Modality Body, Chest N/A Radiographic Tiffany ging 11/26/2017 9:37 AM CITY CONTROLLER Narrative 11/26/2017 12:32 PM CITY CONTROLLER ZACH LAURENT M.D. FINAL REPORT ACC# ??Date Time ??Exam [id number] Nov 26, 2017 03:37:00 [id number] Chest 1 view Frontal EXAMINATION: ??1 view chest radiograph IMPRESSION: ??Comparison is made to prior study of 11/25/2017 at 5:26 AM. In the interval, there has been no significant change in asymmetric areas of consolidation which are concerning for a pneumonia superimposed on emphysema with bilateral small pleural effusions. No pneumothorax. The heart size and mediastinal contour are unchanged. Electronically signed by: Zach Laurent M.D. Requested By: JOHNATHON NUÑEZ Dictated By: ?? ZACH LAURENT M.D. ??on Nov ??2017 ??6:30A This document has been electronically signed by: ZACH LAURENT M.D. on Nov ?? 2018 ??6:30A [id number] LAURENT M.D. FINAL REPORT Attending: ??MARCELINA, ??SOURAV Requesting: ??TAMIA, ??JOHNATHON Requesting Fax: ?? Attending Fax: ?? Attending ID: ??[id number] Requesting ID: ??[id number] Report To 1 ID: ??[id number] ? Report To 1 Name: ??, ?? Report To 1 FAX: ?? NextGen Order #: ?? Procedure Note Miscellaneous, Not In File - 11/26/2017 ZACH LAURENT M.D. FINAL REPORT ACC# Date Time Exam [id number] Nov 26, 2017 03:37:00 [id number] Chest 1 view Frontal EXAMINATION: 1 view chest radiograph IMPRESSION: Comparison is made to prior study of 11/25/2017 at 5:26 AM. In the interval, there has been no significant change in asymmetric areas of consolidation which are concerning for a pneumonia superimposed on emphysema with bilateral small pleural effusions. No pneumothorax. The heart size and mediastinal contour are unchanged. Electronically signed by: Zach Laurent M.D. Requested By: JOHNATHON NUÑEZ Dictated By: ZACH LAURENT M.D. on Nov 26 2017 6:30A This document has been electronically signed by: ZACH LAURENT M.D. on Nov 26 2017 6:30A [id number] LAURENT M.D. FINAL REPORT Attending: SOURAV ACLLEJAS Requesting: JOHNATHON NUÑEZ Requesting Fax: Attending Fax: Attending ID: [id number] Requesting ID: [id number] Report To 1 ID: [id number] Report To 1 Name: , Report To 1 FAX: NextGen Order #: us Johnathon Nuñez EXPLOSIVE ORDNANCE DISPOSAL TECHNICIAN IMG XR PROCEDURES Final Re sult * Glucose POC (11/26/2017 8:00 AM CITY CONTROLLER) Pathologist [facility] [place] Glucose, POC 123 70 - 199 mg/dL [facility] Blood specimen (specimen) 11/26/2017 8:00 AM CITY CONTROLLER 11/26/2017 8:00 AM CITY CONTROLLER N[facility]ative [facility] 11/26/2017 8:11 AM CITY CONTROLLER us Sourav Callejas MD POINT OF CARE TEST ORDERABLES Final Result [facility] Department [place] [address] * (ABNORMAL) Differential, auto (11/26/2017 4:35 AM CITY CONTROLLER) [facility] Neutrophil pct 88.2 % [facility] Imm gran pct 3.0 % [facility] Lymphocyte pct 5.3 % [facility] Monocyte pct 3.0 % [facility] Eosinophil pct 0.0 % [facility] Basophil pct 0.5 % [facility] Neutrophil abs 34.69(H) 1.70 - 6.50 K/cumm [facility] Imm gran abs 1.16(H) 0.00 - 0.10 K/cumm [facility] Lymphocyte abs 2.07 0.80 - 3.30 K/cumm [facility] Monocyte abs 1.17(H) 0.20 - 0.80 K/cumm [facility] Eosinophil abs 0.00 0.00 - 0.50 K/cumm [facility] Basophil abs 0.18(H) 0.00 - 0.10 K/cumm [facility] Blood specimen (specimen) 11/26/2017 4:35 AM CITY CONTROLLER 11/26/2017 4:23 AM CITY CONTROLLER Narrative [facility] - 11/26/2017 5:16 AM CITY CONTROLLER us Johnathon Nuñez EXPLOSIVE ORDNANCE DISPOSAL TECHNICIAN LAB BLOOD ORDERABLES Final Result Performing Organization Address [facility]/ZIP Co de Phone Number [facility] [place] [address] * Protime-INR (11/26/2017 4:35 AM CITY CONTROLLER) [facility] PT 12.0 8.5 - 13.0 sec [facility] INR 1.12 0.80 - 1.21 [facility] Comment: Interpretive Data Inpatient therapeutic ranges* Atrial fibrillation ?2.0-3.0 INR Venous thrombo-embolism ?2.0-3.0 INR Bioprosthetic heart valve ?* Mechanical heart valve, bileaflet or tilting disk,aortic position ? 2.0-3.0 INR All other,or bileaflet or tilting disk, in mitral position ? 2.5-3.5 INR *See the pharmacy resource directory (PHRED) for an updated copy of the Tool Book at [email or web address] Current Interpretive Data was last revised 2012. Blood specimen (specimen) 11/26/2017 4:35 AM CITY CONTROLLER 11/26/2017 4:37 AM CITY CONTROLLER Narrative [facility] - 11/26/2017 5:00 AM CITY CONTROLLER Johnathon Nuñez EXPLOSIVE ORDNANCE DISPOSAL TECHNICIAN LAB BLOOD ORDERABLES Final Result [facility] Department [place] [address] * (ABNORMAL) CBC with auto differential (11/26/2017 4:35 AM CITY CONTROLLER) [facility] WBC 39.27(H) 3.80 - 9.90 K/cumm [facility] RBC 3.16(L) 4.30 - 5.80 M/cumm [facility] Hgb 10.9(L) 13.0 - 17.5 g/dL [facility] Hct 30.7(L) 38.9 - 50.3 % [facility] MCV 97.2(H) 81.3 - 96.4 fL [facility] MCH 34.5(H) 27.1 - 33.3 pg [facility] MCHC 35.5 32.3 - 35.7 g/dL [facility] RDW CV 16.5(H) 11.1 - 14.9 % [facility] RDW SD 58.9(H) 35.7 - 48.1 fL [facility] Plt 78(L) 150 - 400 K/cumm [facility] MPV 12.2 9.1 - 12.3 fL [facility] NRBC 0.2 0.0 - 0.2 % [facility] NRBC abs 0.07(H) 0.00 - 0.01 K/cumm [facility] Blood specimen (specimen) 11/26/2017 4:35 AM CITY CONTROLLER 11/26/2017 4:23 AM CITY CONTROLLER Narrative [facility] - 11/26/2017 4:32 AM CITY CONTROLLER us Johnathon Nuñez NP LAB BLOOD ORDERABLES Final Result [facility] Department [place] [address] * Glucose POC (11/26/2017 4:08 AM CITY CONTROLLER) [facility] Glucose, POC 167 70 - 199 mg/dL [facility] Blood specimen (specimen) 11/26/2017 4:08 AM CITY CONTROLLER 11/26/2017 4:08 AM CITY CONTROLLER Narrative [facility] - 11/26/2017 4:19 AM CITY CONTROLLER us Sourav Callejas MD POINT OF CARE TEST ORDERABLES Final Result [facility] Department [place] [address] * (ABNORMAL) Comprehensive metabolic panel (11/26/2017 3:58 AM CITY CONTROLLER) Sodium 137 135 - 145 mmol/L [facility] Potassium, pl 4.1 3.3 - 4.9 mmol/L [facility] CO2 27 22 - 32 mmol/L [facility] BUN 39(H) 8 - 25 mg/dL [facility] Glucose 161 70 - 199 mg/dL [facility] Comment: Interpretive Data Fasting glucose >/= [...] interpretive data was last revised 2017. Creatinine 0.77(L) 0.80 - 1.30 mg/dL [facility] Calcium 8.1(L) 8.5 - 10.3 mg/dL [facility] Chloride 107 97 - 110 mmol/L [facility] Albumin 2.2(L) 3.5 - 5.0 g/dL [facility] AST 38 10 - 50 Units/L [facility] ALT 28 7 - 55 Units/L [facility] Alk phos 215(H) 40 - 130 Units/L [facility] Bilirubin, total 0.7 0.1 - 1.2 mg/dL [facility] Protein, pl 5.5(L) 6.5 - 8.5 g/dL [facility] Anion gap 3 2 - 15 mmol/L [facility] Blood specimen (specimen) 11/26/2017 3:58 AM CITY CONTROLLER 11/26/2017 3:58 AM CITY CONTROLLER Narrative [facility] - 11/26/2017 5:05 AM CITY CONTROLLER Sourav Callejas MD LAB BLOOD ORDERABLES Final Res ult Performing Organization Address [facility] de Phone Number [facility] [place] [address] * (ABNORMAL) Magnesium (11/26/2017 3:58 AM CITY CONTROLLER) Magnesium 2.8(H) 1.4 - 2.5 mg/dL [facility] Blood specimen (specimen) 11/26/2017 3:58 AM CITY CONTROLLER 11/26/2017 3:58 AM CITY CONTROLLER Narrative [facility] - 11/26/2017 5:05 AM CITY CONTROLLER Sourav Callejas MD LAB BLOOD ORDERABLES Final Res ult Performing Organization Address [facility] de Phone Number [facility] [place] [address] * (ABNORMAL) Phosphorus (11/26/2017 3:58 AM CITY CONTROLLER) Phosphorus, pl 1.4(L) 2.3 - 4.5 mg/dL [facility] Blood specimen (specimen) 11/26/2017 3:58 AM CITY CONTROLLER 11/26/2017 3:58 AM CITY CONTROLLER Narrative [facility] - 11/26/2017 5:05 AM CITY CONTROLLER Sourav Callejas MD LAB BLOOD ORDERABLES Final Res ult Performing Organization Address [facility] [place] [address] * Lipase (11/26/2017 3:58 AM CITY CONTROLLER) Lipase 55 10 - 99 Units/L [facility] Blood specimen (specimen) 11/26/2017 3:58 AM CITY CONTROLLER 11/26/2017 3:58 AM CITY CONTROLLER Narrative [facility] - 11/26/2017 5:05 AM CITY CONTROLLER Sourav Callejas MD LAB BLOOD ORDERABLES Final Res ult Performing Organization Address [facility] de Phone Number [facility] [place] [address] * Glucose POC (11/26/2017 12:01 AM CITY CONTROLLER) Glucose, POC 150 70 - 199 mg/dL [facility] Blood specimen (specimen) 11/26/2017 12:01 AM CITY CONTROLLER 11/26/2017 12:01 AM CITY CONTROLLER Narrative [facility] - 11/26/2017 12:11 AM CITY CONTROLLER Sourav Callejas MD POINT OF CARE TEST ORDERABLES Final Result Performing Organization Address [facility] de Phone Number [facility] Department [place] [address] * Glucose POC (11/25/2017 8:21 PM CITY CONTROLLER) Glucose, POC 177 70 - 199 mg/dL [facility] Blood specimen (specimen) 11/25/2017 8:21 PM CITY CONTROLLER 11/25/2017 8:21 PM CITY CONTROLLER Narrative [facility] - 11/25/2017 8:32 PM CITY CONTROLLER Sourav Callejas MD POINT OF CARE TEST ORDERABLES Final Result Performing Organization Address [facility] [place] [address] * Glucose POC (11/25/2017 4:28 PM CITY CONTROLLER) Glucose, POC 154 70 - 199 mg/dL [facility] Blood specimen (specimen) 11/25/2017 4:28 PM CITY CONTROLLER 11/25/2017 4:28 PM CITY CONTROLLER Narrative [facility] - 11/25/2017 4:41 PM CITY CONTROLLER us Sourav Callejas MD POINT OF CARE TEST ORDERABLES Final Result [facility] Department [place] [address] * XR Interpretation Of Outside Films (11/25/2017 3:07 PM CITY CONTROLLER) Anatomical Region Laterality Modality N/A Radiographic Tiffany ging 11/25/2017 3:07 PM CITY CONTROLLER Narrative 11/25/2017 3:39 PM CITY CONTROLLER SUPRIYA VAUGHN M.D. FINAL REPORT ACC# ??Date Time ??Exam [id number] Nov 25, 2017 09:07:00 [id number] [facility] Body CT Consult EXAMINATION: ??CHANGE CONSULT ON OUTSIDE IMAGES TO REFERENCE IMAGES IMPRESSION: ??This study was initially nominated as a consult on outside images via ALLAN. However, a consult was not performed because a consultation has are ready been provided on these CT images from 11/23/2017. ??Accordingly, there will be no separate report of this study generated by a [facility] Radiologist. This change in examination status was confirmed with Dr. Lopez on 11/25/2017. Electronically signed by: Supriya Vaughn M.D. Requested By: LORI LOPEZ ??Toño ? Dictated By: ?? SUPRIYA VAUGHN M.D. ??on Nov?2017 ??9:37A This document has been electronically signed by: SUPRIYA VAUGHN M.D. on Nov 25 2017 ??9:37A [id number] VAUGHN M.D. FINAL REPORT Attending: ??MARCELINA, ??SOURAV Requesting: ??JOHN, ??LORI Requesting Fax: ?? Attending Fax: ?? Attending ID: ??[id number] Requesting ID: ??[id number] Report To 1 ID: ??[id number] ? Report To 1 Name: ??, ?? Report To 1 FAX: ?? NextGen Order #: ?? Procedure Note Miscellaneous, Not In File - 11/25/2017 SUPRIYA VAUGHN M.D. FINAL REPORT ACC# Date Time Exam [id number] Nov 25, 2017 09:07:00 [id number] [facility] Body CT Consult EXAMINATION: CHANGE CONSULT ON OUTSIDE IMAGES TO REFERENCE IMAGES IMPRESSION: This study was initially nominated as a consult on outside images via ALLAN. However, a consult was not performed because a consultation has are ready been provided on these CT images from 11/23/2017. Accordingly, there will be no separate report of this study generated by a [facility] Radiologist. This change in examination status was confirmed with Dr. Lopez on 11/25/2017. Electronically signed by: Supriya Vaughn M.D. Requested By: LORI LOPEZ M.D. Dictated By: SUPRIYA VAUGHN M.D. on Nov 25 2017 9:37A This document has been electronically signed by: SUPRIYA VAUGHN M.D. on Nov 25 2017 9:37A [id number] VAUGHN M.D. FINAL REPORT Attending: SOURAV CALLEJAS Requesting: LORI LOPEZ Requesting Fax: Attending Fax: Attending ID: [id number] Requesting ID: [id number] Report To 1 ID: [id number] Report To 1 Name: , Report To 1 FAX: NextGen Order #: us Lori Lopez IMG XR PROCEDURES Final Result * Glucose POC (11/25/2017 12:01 PM CITY CONTROLLER) Glucose, POC 125 70 - 199 mg/dL [facility] Blood specimen (specimen) 11/25/2017 12:01 PM CITY CONTROLLER 11/25/2017 12:01 PM CITY CONTROLLER Narrative [facility] - 11/25/2017 12:13 PM CITY CONTROLLER Sourav Callejas MD POINT OF CARE TEST ORDERABLES Final Result [facility] Department [place] [address] * XR Chest 1 Vw (11/25/2017 11:26 AM CITY CONTROLLER) Anatomical Region Laterality Modality Body, Chest N/A Radiographic Tiffany ging 11/25/2017 11:2 6 AM CITY CONTROLLER Narrative 11/25/2017 2:43 PM CITY CONTROLLER BHAVIN OCHOA M.D. FINAL REPORT ACC# ??Date Time ??Exam [id number] Nov 25, 2017 05:26:00 [id number] Chest 1 view Frontal EXAMINATION: ??1 view chest radiograph IMPRESSION: ??Comparison November 24, 2017 at 5:00 AM. Underlying changes of emphysema again noted. Moderate to marked right and mild left heterogeneous lung opacities again seen, increased since the prior examination, especially at the left lung base. More marked interval change is seen since 11/23/2017. These findings most likely secondary to pneumonia superimposed on underlying emphysema. Small right basilar pleural effusion again noted. No pneumothorax seen. Heart size remains within normal limits. Mild right hilar enlargement again seen which may be secondary to right hilar lymphadenopathy or superimposed focal consolidation within the right lung. Attention on follow-up examinations recommended. Electronically signed by: Bhavin Ochoa M.D. Requested By: [facility] Dictated By: ?? BHAVIN OCHOA M.D. ??on Nov ??2017 ??8:41A This document has been electronically signed by: BHAVIN OCHOA M.D. on Nov ??2017 ??8:41A [id number] OCHOA M.D. FINAL REPORT Attending: ??MARCELINA, ??SOURAV Requesting: ??TAMIA, ??JOHNATHON Requesting Fax: ?? Attending Fax: ?? Attending ID: ??[id number] Requesting ID: ??[id number] Report To 1 ID: ??[id number] ? Report To 1 Name: ??, ?? Report To 1 FAX: ?? NextGen Order #: ?? Procedure Note Miscellaneous, Not In File - 11/25/2017 BHAVIN OCHOA M.D. FINAL REPORT ACC# Date Time Exam [id number] Nov 25, 2017 05:26:00 [id number] Chest 1 view Frontal EXAMINATION: 1 view chest radiograph IMPRESSION: Comparison November 24, 2017 at 5:00 AM. Underlying changes of emphysema again noted. Moderate to marked right and mild left heterogeneous lung opacities again seen, increased since the prior examination, especially at the left lung base. More marked interval change is seen since 11/23/2017. These findings most likely secondary to pneumonia superimposed on underlying emphysema. Small right basilar pleural effusion again noted. No pneumothorax seen. Heart size remains within normal limits. Mild right hilar enlargement again seen which may be secondary to right hilar lymphadenopathy or superimposed focal consolidation within the right lung. Attention on follow-up examinations recommended. Electronically signed by: Bhavin Ochoa M.D. Requested By: [facility] Dictated By: BHAVIN OCHOA M.D. on Nov 25 2017 8:41A This document has been electronically signed by: BHAVIN OCHOA M.D. on Nov 25 2017 8:41A [id number] OCHOA M.D. FINAL REPORT Attending: SOURAV CALLEJAS Requesting: [facility] Requesting Fax: Attending Fax: Attending ID: [id number] Requesting ID: [id number] Report To 1 ID: [id number] Report To 1 Name: , Report To 1 FAX: NextGen Order #: Johnathon Nuñez EXPLOSIVE ORDNANCE DISPOSAL TECHNICIAN IMG XR PROCEDURES Final Re sult * (ABNORMAL) POCT arterial blood gas, CPB (11/25/2017 8:52 AM CITY CONTROLLER) pH, art POC 7.48(H) 7.35 - 7.45 [facility] pCO2, art POC 38 35 - 45 mmHg [facility] pO2, art POC 58(L) 80 - 105 mmHg [facility] Na POC 139 135 - 145 mmol/L [facility] K POC 4.3 3.3 - 4.9 mmol/L [facility] Ionized Ca, POC 4.89 4.50 - 5.10 mg/dL [facility] Hematocrit POC 37.0(L) 38.9 - 50.3 % [facility] Glucose POC GEM 3000 120 70 - 199 mg/dL [facility] Lactate POC GEM 3000 1.5 0.7 - 2.2 mmol/L [facility] HCO3, art POC 28 20 - 30 mmol/L [facility] Total CO2, art POC 30 21 - 30 mmol/L [facility] BE, art POC 4.6 mmol/L [facility] O2 sat art POC 92(L) 95 - 98 % [facility] Blood specimen (specimen) 11/25/2017 8:52 AM CITY CONTROLLER 11/25/2017 8:52 AM CITY CONTROLLER Narrative [facility] - 11/25/2017 9:16 AM CITY CONTROLLER Sourav Callejas MD LAB POCT ORDERABLES - DEVICE F inal Result Performing Organization Address [facility] Co de Phone Number [facility] Department [place] [address] * Glucose POC (11/25/2017 8:52 AM CITY CONTROLLER) Glucose, POC 91 70 - 199 mg/dL [facility] Blood specimen (specimen) 11/25/2017 8:52 AM CITY CONTROLLER 11/25/2017 8:52 AM CITY CONTROLLER Narrative [facility] - 11/25/2017 9:06 AM CITY CONTROLLER Sourav Callejas MD POINT OF CARE TEST ORDERABLES Final Result [facility] Department [place] [address] * Glucose POC (11/25/2017 4:07 AM CITY CONTROLLER) Glucose, POC 117 70 - 199 mg/dL [facility] Blood specimen (specimen) 11/25/2017 4:07 AM CITY CONTROLLER 11/25/2017 4:07 AM CITY CONTROLLER Narrative [facility] - 11/25/2017 4:18 AM CITY CONTROLLER Sourav Callejas MD POINT OF CARE TEST ORDERABLES Final Result [facility] Department [place] [address] * Lipase (11/25/2017 12:17 AM CITY CONTROLLER) [facility] Lipase 12 10 - 99 Units/L [facility] Blood specimen (specimen) 11/25/2017 12:17 AM CITY CONTROLLER 11/25/2017 12:56 AM CITY CONTROLLER Narrative [facility] - 11/25/2017 7:32 AM CITY CONTROLLER Johnathon Nuñez NP LAB BLOOD ORDERABLES Final Result Performing Organization Address [facility] Co de Phone Number [facility] Department [place] [address] * (ABNORMAL) Differential, auto (11/25/2017 12:17 AM CITY CONTROLLER) [facility] Neutrophil pct 90.6 % [facility] Imm gran pct 1.0 % [facility] Lymphocyte pct 4.1 % [facility] Monocyte pct 4.3 % [facility] Eosinophil pct 0.0 % [facility] Basophil pct 0.0 % [facility] Neutrophil abs 23.37(H) 1.70 - 6.50 K/cumm [facility] Imm gran abs 0.26(H) 0.00 - 0.10 K/cumm [facility] Lymphocyte abs 1.05 0.80 - 3.30 K/cumm [facility] Monocyte abs 1.11(H) 0.20 - 0.80 K/cumm [facility] Eosinophil abs 0.00 0.00 - 0.50 K/cumm [facility] Basophil abs 0.01 0.00 - 0.10 K/cumm [facility] Blood specimen (specimen) 11/25/2017 12:17 AM CITY CONTROLLER 11/25/2017 12:55 AM CITY CONTROLLER Narrative [facility] - 11/25/2017 1:44 AM CITY CONTROLLER Johnathon Nuñez NP LAB BLOOD ORDERABLES Final Result [facility] Department [place] [address] * (ABNORMAL) Comprehensive metabolic panel (11/25/2017 12:17 AM CITY CONTROLLER) Sodium 139 135 - 145 mmol/L [facility] Potassium, pl 4.4 3.3 - 4.9 mmol/L [facility] CO2 28 22 - 32 mmol/L [facility] BUN 31(H) 8 - 25 mg/dL [facility] Glucose 129 70 - 199 mg/dL [facility] Comment: Interpretive Data Fasting glucose >/= [...] interpretive data was last revised 2017. Creatinine 0.80 0.80 - 1.30 mg/dL [facility] Calcium 8.2(L) 8.5 - 10.3 mg/dL [facility] Chloride 106 97 - 110 mmol/L [facility] Albumin 2.2(L) 3.5 - 5.0 g/dL [facility] AST 45 10 - 50 Units/L [facility] ALT 27 7 - 55 Units/L [facility] Alk phos 95 40 - 130 Units/L [facility] Bilirubin, total 0.9 0.1 - 1.2 mg/dL [facility] Protein, pl 5.4(L) 6.5 - 8.5 g/dL [facility] Anion gap 5 2 - 15 mmol/L [facility] Blood specimen (specimen) 11/25/2017 12:17 AM CITY CONTROLLER 11/25/2017 12:56 AM CITY CONTROLLER Narrative [facility] - 11/25/2017 1:25 AM CITY CONTROLLER Johnathon Nuñez EXPLOSIVE ORDNANCE DISPOSAL TECHNICIAN LAB BLOOD ORDERABLES Final Result Performing Organization Address [facility] [place] [address] * (ABNORMAL) Magnesium (11/25/2017 12:17 AM CITY CONTROLLER) Magnesium 3.0(H) 1.4 - 2.5 mg/dL [facility] Blood specimen (specimen) 11/25/2017 12:17 AM CITY CONTROLLER 11/25/2017 12:56 AM CITY CONTROLLER Narrative [facility] - 11/25/2017 1:25 AM CITY CONTROLLER Johnathon Nuñez EXPLOSIVE ORDNANCE DISPOSAL TECHNICIAN LAB BLOOD ORDERABLES Final Result Performing Organization Address [facility] de Phone Number [facility] [place] [address] * (ABNORMAL) Phosphorus (11/25/2017 12:17 AM CITY CONTROLLER) Phosphorus, pl 1.6(L) 2.3 - 4.5 mg/dL [facility] Blood specimen (specimen) 11/25/2017 12:17 AM CITY CONTROLLER 11/25/2017 12:56 AM CITY CONTROLLER Narrative [facility] - 11/25/2017 1:25 AM CITY CONTROLLER Johnathon Nuñez EXPLOSIVE ORDNANCE DISPOSAL TECHNICIAN LAB BLOOD ORDERABLES Final Result Performing Organization Address [facility] [place] [address] * Vancomycin, trough (11/25/2017 12:17 AM CITY CONTROLLER) Vancomycin trough 17.7 10.0 - 20.9 mcg/mL [facility] Blood specimen (specimen) 11/25/2017 12:17 AM CITY CONTROLLER 11/25/2017 12:55 AM CITY CONTROLLER Narrative [facility] - 11/25/2017 1:24 AM CITY CONTROLLER us Anais Chou EXPLOSIVE ORDNANCE DISPOSAL TECHNICIAN LAB BLOOD ORDERABLES Final Result [facility] [place] [address] * (ABNORMAL) CBC with auto differential (11/25/2017 12:17 AM CITY CONTROLLER) [facility] WBC 25.80(H) 3.80 - 9.90 K/cumm [facility] RBC 3.26(L) 4.30 - 5.80 M/cumm [facility] Hgb 11.1(L) 13.0 - 17.5 g/dL [facility] Hct 31.9(L) 38.9 - 50.3 % [facility] MCV 97.9(H) 81.3 - 96.4 fL [facility] MCH 34.0(H) 27.1 - 33.3 pg [facility] MCHC 34.8 32.3 - 35.7 g/dL [facility] RDW CV 16.3(H) 11.1 - 14.9 % [facility] RDW SD 58.4(H) 35.7 - 48.1 fL [facility] Plt 95(L) 150 - 400 K/cumm [facility] MPV 11.2 9.1 - 12.3 fL [facility] NRBC 0.0 0.0 - 0.2 % [facility] NRBC abs 0.00 0.00 - 0.01 K/cumm [facility] Blood specimen (specimen) 11/25/2017 12:17 AM CITY CONTROLLER 11/25/2017 12:55 AM CITY CONTROLLER Narrative [facility] - 11/25/2017 1:44 AM CITY CONTROLLER us Johnathon Nuñez EXPLOSIVE ORDNANCE DISPOSAL TECHNICIAN LAB BLOOD ORDERABLES Final Result [facility] [place] [address] * (ABNORMAL) Protime-INR (11/25/2017 12:17 AM CITY CONTROLLER) PT 14.2(H) 8.5 - 13.0 sec [facility] INR 1.32(H) 0.80 - 1.21 [facility] Comment: Interpretive Data Inpatient therapeutic ranges* Atrial fibrillation ?2.0-3.0 INR Venous thrombo-embolism ?2.0-3.0 INR Bioprosthetic heart valve ?* Mechanical heart valve, bileaflet or tilting disk,aortic position ? 2.0-3.0 INR All other,or bileaflet or tilting disk, in mitral position ? 2.5-3.5 INR *See the pharmacy resource directory (PHRED) for an updated copy of the Tool Book at [email or web address] Current Interpretive Data was last revised 2012. Blood specimen (specimen) 11/25/2017 12:17 AM CITY CONTROLLER 11/25/2017 12:43 AM CITY CONTROLLER Narrative [facility] - 11/25/2017 1:04 AM CITY CONTROLLER us Johnathon Nuñez NP LAB BLOOD ORDERABLES Final Result [facility] Department [place] [address] * Glucose POC (11/25/2017 12:17 AM CITY CONTROLLER) Glucose, POC 106 70 - 199 mg/dL [facility] Blood specimen (specimen) 11/25/2017 12:17 AM CITY CONTROLLER 11/25/2017 12:17 AM CITY CONTROLLER Narrative [facility] - 11/25/2017 12:28 AM CITY CONTROLLER Sourav Callejas MD POINT OF CARE TEST ORDERABLES Final Result Performing Organization Address [facility] de Phone Number [facility] [place] [address] * Glucose POC (11/24/2017 7:37 PM CITY CONTROLLER) [facility] Glucose, POC 145 70 - 199 mg/dL [facility] Blood specimen (specimen) 11/24/2017 7:37 PM CITY CONTROLLER 11/24/2017 7:37 PM CITY CONTROLLER Narrative [facility] - 11/24/2017 7:49 PM CITY CONTROLLER Sourav Callejas MD POINT OF CARE TEST ORDERABLES Final Result Performing Organization Address [facility] de Phone Number [facility] [place] [address] * (ABNORMAL) POCT arterial blood gas, CPB (11/24/2017 5:08 PM CITY CONTROLLER) [facility] pH, art POC 7.46(H) 7.35 - 7.45 [facility] pCO2, art POC 39 35 - 45 mmHg [facility] pO2, art POC 82 80 - 105 mmHg [facility] Na POC 138 135 - 145 mmol/L [facility] K POC 4.1 3.3 - 4.9 mmol/L [facility] Ionized Ca, POC 4.85 4.50 - 5.10 mg/dL [facility] Hematocrit POC 34.0(L) 38.9 - 50.3 % [facility] Glucose POC GEM 3000 169 70 - 199 mg/dL [facility] Lactate POC GEM 3000 2.2 0.7 - 2.2 mmol/L [facility] HCO3, art POC 28 20 - 30 mmol/L [facility] Total CO2, art POC 29 21 - 30 mmol/L [facility] BE, art POC 3.6 mmol/L [facility] O2 sat art POC 97 95 - 98 % [facility] Blood specimen (specimen) 11/24/2017 5:08 PM CITY CONTROLLER 11/24/2017 5:08 PM CITY CONTROLLER Narrative [facility] - 11/24/2017 5:32 PM CITY CONTROLLER Sourav Callejas MD LAB POCT ORDERABLES - DEVICE F inal Result Performing Organization Address [facility] Co de Phone Number [facility] [place] [address] * Glucose POC (11/24/2017 3:32 PM CITY CONTROLLER) Glucose, POC 85 70 - 199 mg/dL [facility] Blood specimen (specimen) 11/24/2017 3:32 PM CITY CONTROLLER 11/24/2017 3:32 PM CITY CONTROLLER Narrative [facility] - 11/24/2017 3:48 PM CITY CONTROLLER Sourav Callejas MD POINT OF CARE TEST ORDERABLES Final Result Performing Organization Address [facility] [place] [address] * Glucose POC (11/24/2017 11:52 AM CITY CONTROLLER) Glucose, POC 185 70 - 199 mg/dL [facility] Blood specimen (specimen) 11/24/2017 11:52 AM CITY CONTROLLER 11/24/2017 11:52 AM CITY CONTROLLER Narrative [facility] - 11/24/2017 12:09 PM CITY CONTROLLER Sourav Callejas MD POINT OF CARE TEST ORDERABLES Final Result Performing Organization Address [facility] [place] [address] * XR Chest 1 Vw (11/24/2017 11:20 AM CITY CONTROLLER) Anatomical Region Laterality Modality Body, Chest N/A Radiographic Tiffany ging 11/24/2017 11:2 0 AM CITY CONTROLLER Narrative 11/24/2017 12:31 PM CITY CONTROLLER ZACH LAURENT M.D. FINAL REPORT ACC# ??Date Time ??Exam [id number] Nov 24, 2017 05:20:00 [id number] Chest 1 view Frontal [id number] Nov 23, 2017 17:01:00 [id number] Chest 1 view Frontal EXAMINATION: ?? 1. Single view anteroposterior chest 11/23/2017 at 4:58 PM 2. Single view anteroposterior chest 11/24/2017 5:00 AM IMPRESSION: ??1. Single view chest radiograph from 11/23/2017 has no prior study available for comparison. This study shows diffuse emphysema with focal airspace opacity in the right base. These findings are concerning for an infectious pneumonia. However there are some enlargement in the right hilum. When correlated with recent computed tomography from 11/23/2017, the hilum was not included on this study. But findings are suggestive of pneumonia superimposed on emphysema. The left lung is clear. There is no left pleural effusion but there is a tiny right pleural effusion. No pneumothorax. The heart size is is at upper limit of normal. 2. Single view chest radiograph from 11/24/2017 shows no significant change. Again findings are most suggestive of a pneumonia superimposed on emphysema. However we would recommend follow-up to resolution to exclude the ??possibility of a central obstructing mass. Electronically signed by: Zach Laurent M.D. Requested By: [facility] Dictated By: ?? ZACH LAURENT M.D. ??on Nov ??2017 ??6:29A This document has been electronically signed by: ZACH LAURENT M.D. on Nov ??2017 ??6:29A [id number] LAURENT M.D. FINAL REPORT Attending: ??MARCELINA, ??SOURAV Requesting: ??TAMIA, ??JOHNATHON Requesting Fax: ?? Attending Fax: ?? Attending ID: ??[id number] Requesting ID: ??[id number] Report To 1 ID: ??[id number] ? Report To 1 Name: ??, ?? Report To 1 FAX: ?? NextGen Order #: ?? Procedure Note Miscellaneous, Not In File - 11/24/2017 ZACH LAURENT M.D. FINAL REPORT ACC# Date Time Exam [id number] Nov 24, 2017 05:20:00 [id number] Chest 1 view Frontal [id number] Nov 23, 2017 17:01:00 [id number] Chest 1 view Frontal EXAMINATION: 1. Single view anteroposterior chest 11/23/2017 at 4:58 PM 2. Single view anteroposterior chest 11/24/2017 5:00 AM IMPRESSION: 1. Single view chest radiograph from 11/23/2017 has no prior study available for comparison. This study shows diffuse emphysema with focal airspace opacity in the right base. These findings are concerning for an infectious pneumonia. However there are some enlargement in the right hilum. When correlated with recent computed tomography from 11/23/2017, the hilum was not included on this study. But findings are suggestive of pneumonia superimposed on emphysema. The left lung is clear. There is no left pleural effusion but there is a tiny right pleural effusion. No pneumothorax. The heart size is is at upper limit of normal. 2. Single view chest radiograph from 11/24/2017 shows no significant change. Again findings are most suggestive of a pneumonia superimposed on emphysema. However we would recommend follow-up to resolution to exclude the possibility of a central obstructing mass. Electronically signed by: Zach Laurent M.D. Requested By: [facility] Dictated By: ZACH LAURENT M.D. on Nov 24 2017 6:29A This document has been electronically signed by: ZACH LAURENT M.D. on Nov 24 2017 6:29A [id number] LAURENT M.D. FINAL REPORT Attending: SOURAV CALLEJAS Requesting: [facility] Requesting Fax: Attending Fax: Attending ID: [id number] Requesting ID: [id number] Report To 1 ID: [id number] Report To 1 Name: , Report To 1 FAX: NextGen Order #: us Johnathon Nuñez EXPLOSIVE ORDNANCE DISPOSAL TECHNICIAN IMG XR PROCEDURES Final Re sult * (ABNORMAL) POCT arterial blood gas, CPB (11/24/2017 10:07 AM CITY CONTROLLER) pH, art POC 7.39 7.35 - 7.45 [facility] pCO2, art POC 37 35 - 45 mmHg [facility] pO2, art POC 130(H) 80 - 105 mmHg [facility] Na POC 138 135 - 145 mmol/L [facility] K POC 3.2(L) 3.3 - 4.9 mmol/L [facility] Ionized Ca, POC 4.17(L) 4.50 - 5.10 mg/dL [facility] Hematocrit POC 32.0(L) 38.9 - 50.3 % [facility] Glucose POC GEM 3000 190 70 - 199 mg/dL [facility] Lactate POC GEM 3000 2.9(H) 0.7 - 2.2 mmol/L [facility] HCO3, art POC 22 20 - 30 mmol/L [facility] Total CO2, art POC 24 21 - 30 mmol/L [facility] BE, art POC -2.3 mmol/L [facility] O2 sat art POC 99(H) 95 - 98 % [facility] Blood specimen (specimen) 11/24/2017 10:07 AM CITY CONTROLLER 11/24/2017 10:07 AM CITY CONTROLLER Narrative [facility] - 11/24/2017 10:31 AM [facility] Sourav Callejas MD LAB POCT ORDERABLES - DEVICE F inal Result [facility] Department [place] [address] * (ABNORMAL) Basic metabolic panel (11/24/2017 7:36 AM CITY CONTROLLER) Sodium 135 135 - 145 mmol/L [facility] Potassium, pl 3.8 3.3 - 4.9 mmol/L [facility] Chloride 105 97 - 110 mmol/L [facility] CO2 19(L) 22 - 32 mmol/L [facility] BUN 24 8 - 25 mg/dL [facility] Glucose 259(H) 70 - 199 mg/dL [facility] Comment: Interpretive Data Fasting glucose >/= [...] interpretive data was last revised 2017. Creatinine 0.81 0.80 - 1.30 mg/dL [facility] Calcium 6.8(L) 8.5 - 10.3 mg/dL [facility] Anion gap 11 2 - 15 mmol/L [facility] Blood specimen (specimen) 11/24/2017 7:36 AM CITY CONTROLLER 11/24/2017 7:49 AM CITY CONTROLLER Narrative [facility] - 11/24/2017 8:09 AM CITY CONTROLLER us Silva Saini EXPLOSIVE ORDNANCE DISPOSAL TECHNICIAN LAB BLOOD ORDERABL ES Final Result [facility] Department [place] [address] * (ABNORMAL) POCT arterial blood gas, CPB (11/24/2017 7:32 AM CITY CONTROLLER) pH, art POC 7.37 7.35 - 7.45 [facility] pCO2, art POC 36 35 - 45 mmHg [facility] pO2, art POC 56(L) 80 - 105 mmHg [facility] Na POC 136 135 - 145 mmol/L [facility] K POC 3.6 3.3 - 4.9 mmol/L [facility] Ionized Ca, POC 4.25(L) 4.50 - 5.10 mg/dL [facility] Hematocrit POC 33.0(L) 38.9 - 50.3 % [facility] Glucose POC GEM 3000 250(H) 70 - 199 mg/dL [facility] Lactate POC GEM 3000 5.0(C) 0.7 - 2.2 mmol/L [facility] HCO3, art POC 21 20 - 30 mmol/L [facility] Total CO2, art POC 22 21 - 30 mmol/L [facility] BE, art POC -4.0 mmol/L [facility] O2 sat art POC 88(L) 95 - 98 % [facility] Blood specimen (specimen) 11/24/2017 7:32 AM CITY CONTROLLER 11/24/2017 7:32 AM CITY CONTROLLER Narrative [facility] - 11/24/2017 7:56 AM CITY CONTROLLER Sourav Callejas MD LAB POCT ORDERABLES - DEVICE F inal Result Performing Organization Address [facility] Co de Phone Number [facility] Department [place] [address] * (ABNORMAL) Glucose POC (11/24/2017 7:24 AM CITY CONTROLLER) [facility] Glucose, POC 262(H) 70 - 199 mg/dL [facility] Blood specimen (specimen) 11/24/2017 7:24 AM CITY CONTROLLER 11/24/2017 7:24 AM CITY CONTROLLER Narrative [facility] - 11/24/2017 7:45 AM CITY CONTROLLER Sourav Callejas MD POINT OF CARE TEST ORDERABLES Final Result Performing Organization Address [facility] de Phone Number [facility] Department [place] [address] * XR Interpretation Of Outside Films (11/24/2017 3:23 AM CITY CONTROLLER) Anatomical Region Laterality Modality N/A Radiographic Tiffany ging 11/24/2017 3:23 AM CITY CONTROLLER Narrative 11/24/2017 4:59 PM CITY CONTROLLER RODOLFO MURPHY M.D. WALDO POLO M.D. FINAL REPORT The radiology attending physician has personally reviewed this study, and has reviewed and/or edited this written report and agrees with it. ACC# ??Date Time ??Exam [id number] Nov 23, 2017 21:23:00 [id number] [facility] Body CT Consult EXAMINATION: ??RADIOLOGY CONSULTATION ON OUTSIDE IMAGING STUDY STUDY INITIALLY PERFORMED: 11/23/2017 at default. TYPE OF STUDY: Multiple CT images of the abdomen and pelvis with are provided at the time of this interpretation. The protocol was adequate to address the clinical question. The outside final report was not available at the time of this second opinion interpretation. TYPE OF CONSULTATION: Consult on outside imaging study with images submitted through [facility] DATE OF CONSULTATION: 11/23/2017 9:37 PM HISTORY: AML status post stem cell transplant 2008, dictated by [id number] disease in the lungs who presents with septic shock from outside hospital. COMPARISON: 02/02/2013 FINDINGS: Included images of the thorax demonstrates the heart is normal in size. ??There is no pericardial effusion. ??There is no pleural effusion. ??There is right lower lobe airspace opacity with interstitial septal line thickening. The liver is normal without evidence of masses. ??The gallbladder is normal.. ??There is some pericholecystic fluid. ??There is no intra or extrahepatic biliary ductal dilatation. There is a fluid collection along the body/tail of the pancreas as well as smaller fluid collections with peripheral calcifications along the head of the pancreas. ??The pancreas demonstrates normal enhancement. ??There is mild peripancreatic stranding. ??The spleen is small. ??The adrenal glands are normal. ??There is no hydronephrosis. The stomach and duodenum are normal. ??The small bowel is normal. ??The colon and appendix are normal. There is retroperitoneal lymphadenopathy, similar to prior exam. There is atherosclerotic calcifications within the aorta and iliac arteries. ??The aorta is normal in course and caliber. ??There is lumbar spine degenerative disc disease without evidence of suspicious lytic or blastic lesions. ??There is no free intraperitoneal air or fluid. IMPRESSION: ??1. ??Fluid collections along the body and tail the pancreas as well as smaller fluid collections with peripheral calcifications along the head of the pancreas and mild stranding around the pancreas. ??This may represent acute pancreatitis however given the appearance of these fluid collections on prior exam and peripheral calcifications in the collections head of pancreas this may represent sequela of prior pancreatitis. ??Recommend correlation with lipase and amylase. 2. ??Right lower lobe peripheral airspace opacity with intralobular septal line thickening which is favored to represent organizing pneumonia with superimposed fibrosis in the setting of chronic vwzkf-mljjlx-hkae disease however this may also represent fibrosis with superimposed pneumonia. The findings, conclusions and recommendations within this report do not replace the initial findings, conclusions ??and recommendations made at the facility where the study was performed based upon the imaging and clinical condition at that time. ??Comparison with the prior report and clinical history is necessary. ??The provided images may or may not represent the [place] source data set and thus may contain changes that may lower the accuracy of this second-opinion interpretation. Electronically signed by: Rodolfo Murphy M.D. Requested By: LORI LOPEZ ??Toño ? Dictated By: ?? WALDO POLO M.D. ??on Nov ??2017 10:04P This document has been electronically signed by: RODOLFO MURPHY M.D. on Nov 24 2017 10:57A [id number] LAGUNAS M.D. FINAL REPORT The radiology attending physician has personally reviewed this study, and has reviewed and/or edited this written report and agrees with it. Attending: ??MARCELINA, ??SOURAV Requesting: ??JOHN, ??LORI Requesting Fax: ?? Attending Fax: ?? Attending ID: ??[id number] Requesting ID: ??[id number] Report To 1 ID: ??[id number] ? Report To 1 Name: ??, ?? Report To 1 FAX: ?? NextGen Order #: ?? Procedure Note Miscellaneous, Not In File - 11/24/2017 Toño CHOWDHURY M.D. FINAL REPORT The radiology attending physician has personally reviewed this study, and has reviewed and/or edited this written report and agrees with it. ACC# Date Time Exam [id number] Nov 23, 2017 21:23:00 [id number] [facility] Body CT Consult EXAMINATION: RADIOLOGY CONSULTATION ON OUTSIDE IMAGING STUDY STUDY INITIALLY PERFORMED: 11/23/2017 at default. TYPE OF STUDY: Multiple CT images of the abdomen and pelvis with are provided at the time of this interpretation. The protocol was adequate to address the clinical question. The outside final report was not available at the time of this second opinion interpretation. TYPE OF CONSULTATION: Consult on outside imaging study with images submitted through [facility] DATE OF CONSULTATION: 11/23/2017 9:37 PM HISTORY: AML status post stem cell transplant 2008, dictated by muvul-zkjfbc-pfld disease in the lungs who presents with septic shock from outside hospital. COMPARISON: 02/02/2013 FINDINGS: Included images of the thorax demonstrates the heart is normal in size. There is no pericardial effusion. There is no pleural effusion. There is right lower lobe airspace opacity with interstitial septal line thickening. The liver is normal without evidence of masses. The gallbladder is normal.. There is some pericholecystic fluid. There is no intra or extrahepatic biliary ductal dilatation. There is a fluid collection along the body/tail of the pancreas as well as smaller fluid collections with peripheral calcifications along the head of the pancreas. The pancreas demonstrates normal enhancement. There is mild peripancreatic stranding. The spleen is small. The adrenal glands are normal. There is no hydronephrosis. The stomach and duodenum are normal. The small bowel is normal. The colon and appendix are normal. There is retroperitoneal lymphadenopathy, similar to prior exam. There is atherosclerotic calcifications within the aorta and iliac arteries. The aorta is normal in course and caliber. There is lumbar spine degenerative disc disease without evidence of suspicious lytic or blastic lesions. There is no free intraperitoneal air or fluid. IMPRESSION: 1. Fluid collections along the body and tail the pancreas as well as smaller fluid collections with peripheral calcifications along the head of the pancreas and mild stranding around the pancreas. This may represent acute pancreatitis however given the appearance of these fluid collections on prior exam and peripheral calcifications in the collections head of pancreas this may represent sequela of prior pancreatitis. Recommend correlation with lipase and amylase. 2. Right lower lobe peripheral airspace opacity with intralobular septal line thickening which is favored to represent organizing pneumonia with superimposed fibrosis in the setting of chronic wpdki-taxspt-mxbz disease however this may also represent fibrosis with superimposed pneumonia. The findings, conclusions and recommendations within this report do not replace the initial findings, conclusions and recommendations made at the facility where the study was performed based upon the imaging and clinical condition at that time. Comparison with the prior report and clinical history is necessary. The provided images may or may not represent the [place] source data set and thus may contain changes that may lower the accuracy of this second-opinion interpretation. Electronically signed by: Rodolfo Murphy M.D. Requested By: LORI LOPEZ M.D. Dictated By: WALDO POLO M.D. on Nov 23 2017 10:04P This document has been electronically signed by: RODOLFO MURPHY M.D. on Nov 24 2017 10:57A [id number] LAGUNAS M.D. FINAL REPORT The radiology attending physician has personally reviewed this study, and has reviewed and/or edited this written report and agrees with it. Attending: SOURAV CALLEJAS Requesting: LORI LOPEZ Requesting Fax: Attending Fax: Attending ID: [id number] Requesting ID: [id number] Report To 1 ID: [id number] Report To 1 Name: , Report To 1 FAX: NextGen Order #: Lori Lopez IMG XR PROCEDURES Final Result * (ABNORMAL) Lipid panel (11/24/2017 2:21 AM CITY CONTROLLER) [facility] Signature Cholesterol 55 30 - 200 mg/dL [facility] Comment: Interpretive Data Desirable: ?<200 mg/dL Borderline high: ??200-239 mg/dL High: ? > or = 240 mg/dL Literature Reference: National Cholesterol Education Program (NCEP) Expert Panel on Detection, Evaluation, and Treatment of High Blood Cholesterol in Adults (Adult Treatment Panel III). ??Circulation 2004; 110:227. Current interpretive data was last revised on 2015. Triglycerides 91 0 - 150 mg/dL [facility] Comment: Interpretive Data Desirable: ? < 150 mg/dL Borderline High: ? 150 - 199 mg/dL High: ?200 - 499 mg/dL Very High: ? > or = 499 mg/dL Literature Reference: See Cholesterol Current interpretive data was last revised on 2015. HDL 10(L) >=40 mg/dL [facility] Comment: Interpretive Data Less than 40 mg/dL - low; A major risk factor for heart disease. Greater than or equal to 60 mg/dL - High; ??considered protective of heart disease. Literature Reference: See Cholesterol Current interpretive data was last revised on 2015. LDL, calculated 27 10 - 129 mg/dL [facility] Comment: Interpretive Data Optimal: ? < 100 mg/dL Near Optimal: ?100 - 129 mg/dL Borderline High: ?? 130 - 159 mg/dL High: ?160 - 189 mg/dL Very high: ? > or = 190 mg/dL Literature Reference: See Cholesterol Current interpretive data was last revised on 2015. Non-HDL Cholesterol 45 mg/dL [facility] Comment: Interpretive Data When triglycerides are >200 mg/dL, non-HDL C is a secondary target of therapy, with a goal 30 mg/dL higher than the identified LDL-C goal. Reference: ??See Cholesterol Reference. Current interpretive data was last revised 2015. Blood specimen (specimen) 11/24/2017 2:21 AM CITY CONTROLLER 11/24/2017 3:01 AM CITY CONTROLLER Narrative [facility] - 11/24/2017 9:00 AM CITY CONTROLLER Johnathon Nuñez EXPLOSIVE ORDNANCE DISPOSAL TECHNICIAN LAB BLOOD ORDERABLES Final Result [facility] Department [place] [address] * (ABNORMAL) Lipase (11/24/2017 2:21 AM CITY CONTROLLER) Lipase 6(L) 10 - 99 Units/L [facility] Blood specimen (specimen) 11/24/2017 2:21 AM CITY CONTROLLER 11/24/2017 3:01 AM CITY CONTROLLER Narrative [facility] - 11/24/2017 9:00 AM CITY CONTROLLER Johnathon Nuñez EXPLOSIVE ORDNANCE DISPOSAL TECHNICIAN LAB BLOOD ORDERABLES Final Result Performing Organization Address [facility]/ZIP Co de Phone Number [facility] Department [place] [address] * (ABNORMAL) Differential, auto (11/24/2017 2:21 AM CITY CONTROLLER) Neutrophil pct 85.3 % [facility] Comment:Confirmed by smear r eview Imm gran pct 0.9 % [facility] Lymphocyte pct 8.4 % [facility] Monocyte pct 4.5 % [facility] Eosinophil pct 0.0 % [facility] Basophil pct 0.9 % [facility] Neutrophil abs 6.88(H) 1.70 - 6.50 K/cumm [facility] Imm gran abs 0.07 0.00 - 0.10 K/cumm [facility] Lymphocyte abs 0.68(L) 0.80 - 3.30 K/cumm [facility] Monocyte abs 0.36 0.20 - 0.80 K/cumm [facility] Eosinophil abs 0.00 0.00 - 0.50 K/cumm [facility] Basophil abs 0.07 0.00 - 0.10 K/cumm [facility] Blood specimen (specimen) 11/24/2017 2:21 AM CITY CONTROLLER 11/24/2017 3:01 AM CITY CONTROLLER Narrative [facility] - 11/24/2017 3:38 AM CITY CONTROLLER Johnathon Nuñez EXPLOSIVE ORDNANCE DISPOSAL TECHNICIAN LAB BLOOD ORDERABLES Final Result Performing Organization Address [facility]/ZIP Co de Phone Number [facility] Department [place] [address] * (ABNORMAL) Comprehensive metabolic panel (11/24/2017 2:21 AM CITY CONTROLLER) Sodium 136 135 - 145 mmol/L [facility] Potassium, pl 4.7 3.3 - 4.9 mmol/L [facility] CO2 16(L) 22 - 32 mmol/L [facility] BUN 24 8 - 25 mg/dL [facility] Glucose 258(H) 70 - 199 mg/dL [facility] Comment: Interpretive Data Fasting glucose >/= [...] interpretive data was last revised 2017. Creatinine 0.99 0.80 - 1.30 mg/dL [facility] Calcium 7.4(L) 8.5 - 10.3 mg/dL [facility] Chloride 106 97 - 110 mmol/L [facility] Albumin 2.4(L) 3.5 - 5.0 g/dL [facility] AST 57(H) 10 - 50 Units/L [facility] ALT 37 7 - 55 Units/L [facility] Alk phos 76 40 - 130 Units/L [facility] Bilirubin, total 1.3(H) 0.1 - 1.2 mg/dL [facility] Protein, pl 5.6(L) 6.5 - 8.5 g/dL [facility] Anion gap 14 2 - 15 mmol/L [facility] Blood specimen (specimen) 11/24/2017 2:21 AM CITY CONTROLLER 11/24/2017 3:01 AM CITY CONTROLLER Narrative [facility] - 11/24/2017 3:27 AM CITY CONTROLLER us Johnathon Nuñez EXPLOSIVE ORDNANCE DISPOSAL TECHNICIAN LAB BLOOD ORDERABLES Final Result [facility] Department [place] [address] * (ABNORMAL) Magnesium (11/24/2017 2:21 AM CITY CONTROLLER) Magnesium 2.9(H) 1.4 - 2.5 mg/dL [facility] Blood specimen (specimen) 11/24/2017 2:21 AM CITY CONTROLLER 11/24/2017 3:01 AM CITY CONTROLLER Narrative [facility] [facility] - 11/24/2017 3:27 AM CITY CONTROLLER Johnathon Nuñez EXPLOSIVE ORDNANCE DISPOSAL TECHNICIAN LAB BLOOD ORDERABLES Final Result Performing Organization Address [facility] [place] [address] * Phosphorus (11/24/2017 2:21 AM CITY CONTROLLER) Phosphorus, pl 3.6 2.3 - 4.5 mg/dL [facility] Blood specimen (specimen) 11/24/2017 2:21 AM CITY CONTROLLER 11/24/2017 3:01 AM CITY CONTROLLER Narrative [facility] - 11/24/2017 3:27 AM CITY CONTROLLER Johnathon Nuñez EXPLOSIVE ORDNANCE DISPOSAL TECHNICIAN LAB BLOOD ORDERABLES Final Result Performing Organization Address [facility] [place] [address] * (ABNORMAL) Protime-INR (11/24/2017 2:21 AM CITY CONTROLLER) PT 20.0(H) 8.5 - 13.0 sec [facility] INR 1.85(H) 0.80 - 1.21 [facility] Comment: Interpretive Data Inpatient therapeutic ranges* Atrial fibrillation ?2.0-3.0 INR Venous thrombo-embolism ?2.0-3.0 INR Bioprosthetic heart valve ?* Mechanical heart valve, bileaflet or tilting disk,aortic position ? 2.0-3.0 INR All other,or bileaflet or tilting disk, in mitral position ? 2.5-3.5 INR *See the pharmacy resource directory (PHRED) for an updated copy of the Tool Book at [email or web address] Current Interpretive Data was last revised 2012. Blood specimen (specimen) 11/24/2017 2:21 AM CITY CONTROLLER 11/24/2017 2:54 AM CITY CONTROLLER Narrative [facility] - 11/24/2017 3:14 AM CITY CONTROLLER us Johnathon Nuñez NP LAB BLOOD ORDERABLES Final Result [facility] Department [place] [address] * (ABNORMAL) CBC with auto differential (11/24/2017 2:21 AM CITY CONTROLLER) WBC 8.06 3.80 - 9.90 K/cumm [facility] RBC 3.55(L) 4.30 - 5.80 M/cumm [facility] Hgb 12.3(L) 13.0 - 17.5 g/dL [facility] Hct 35.4(L) 38.9 - 50.3 % [facility] MCV 99.7(H) 81.3 - 96.4 fL [facility] MCH 34.6(H) 27.1 - 33.3 pg [facility] MCHC 34.7 32.3 - 35.7 g/dL [facility] RDW CV 15.9(H) 11.1 - 14.9 % [facility] RDW SD 59.1(H) 35.7 - 48.1 fL [facility] Plt 132(L) 150 - 400 K/cumm [facility] MPV 10.8 9.1 - 12.3 fL [facility] NRBC 0.0 0.0 - 0.2 % [facility] NRBC abs 0.00 0.00 - 0.01 K/cumm [facility] Blood specimen (specimen) 11/24/2017 2:21 AM CITY CONTROLLER 11/24/2017 3:01 AM CITY CONTROLLER Narrative [facility] - 11/24/2017 3:38 AM CITY CONTROLLER us Johnathon Nuñez EXPLOSIVE ORDNANCE DISPOSAL TECHNICIAN LAB BLOOD ORDERABLES Final Result [facility] Department [place] [address] * (ABNORMAL) POCT arterial blood gas, CPB (11/24/2017 2:17 AM CITY CONTROLLER) pH, art POC 7.29(L) 7.35 - 7.45 [facility] pCO2, art POC 29(L) 35 - 45 mmHg [facility] pO2, art POC 60(L) 80 - 105 mmHg [facility] Na POC 137 135 - 145 mmol/L [facility] K POC 4.2 3.3 - 4.9 mmol/L [facility] Ionized Ca, POC 4.33(L) 4.50 - 5.10 mg/dL [facility] Hematocrit POC 36.0(L) 38.9 - 50.3 % [facility] Glucose POC GEM 3000 247(H) 70 - 199 mg/dL [facility] Lactate POC GEM 3000 6.4(C) 0.7 - 2.2 mmol/L [facility] HCO3, art POC 14(L) 20 - 30 mmol/L [facility] Total CO2, art POC 15(L) 21 - 30 mmol/L [facility] BE, art POC -11.4 mmol/L [facility] O2 sat art POC 87(L) 95 - 98 % [facility] Blood specimen (specimen) 11/24/2017 2:17 AM CITY CONTROLLER 11/24/2017 2:17 AM CITY CONTROLLER Narrative [facility] - 11/24/2017 2:40 AM CITY CONTROLLER us Sourav Callejas MD LAB POCT ORDERABLES - DEVICE F inal Result [facility] Department [place] [address] * (ABNORMAL) Glucose POC (11/23/2017 11:59 PM CITY CONTROLLER) Glucose, POC 207(H) 70 - 199 mg/dL [facility] Blood specimen (specimen) 11/23/2017 11:59 PM CITY CONTROLLER 11/23/2017 11:59 PM CITY CONTROLLER Narrative [facility] - 11/24/2017 12:10 AM CITY CONTROLLER Sourav Callejas MD POINT OF CARE TEST ORDERABLES Final Result Performing Organization Address City/State/[facility] Co de Phone Number [facility] Department [place] [address] * XR Chest 1 Vw (11/23/2017 11:01 PM CITY CONTROLLER) Anatomical Region Laterality Modality Body, Chest N/A Radiographic Tiffany ging 11/23/2017 11:0 1 PM CITY CONTROLLER Narrative 11/24/2017 12:31 PM CITY CONTROLLER ZACH LAURENT M.D. FINAL REPORT ACC# ??Date Time ??Exam [id number] Nov 24, 2017 05:20:00 [id number] Chest 1 view Frontal [id number] Nov 23, 2017 17:01:00 [id number] Chest 1 view Frontal EXAMINATION: ?? 1. Single view anteroposterior chest 11/23/2017 at 4:58 PM 2. Single view anteroposterior chest 11/24/2017 5:00 AM IMPRESSION: ??1. Single view chest radiograph from 11/23/2017 has no prior study available for comparison. This study shows diffuse emphysema with focal airspace opacity in the right base. These findings are concerning for an infectious pneumonia. However there are some enlargement in the right hilum. When correlated with recent computed tomography from 11/23/2017, the hilum was not included on this study. But findings are suggestive of pneumonia superimposed on emphysema. The left lung is clear. There is no left pleural effusion but there is a tiny right pleural effusion. No pneumothorax. The heart size is is at upper limit of normal. 2. Single view chest radiograph from 11/24/2017 shows no significant change. Again findings are most suggestive of a pneumonia superimposed on emphysema. However we would recommend follow-up to resolution to exclude the ??possibility of a central obstructing mass. Electronically signed by: Zach Laurent M.D. Requested By: [facility] Dictated By: ?? ZACH LAURENT M.D. ??on Nov ??2017 ??6:29A This document has been electronically signed by: ZACH LAURENT M.D. on Nov ??2017 ??6:29A [id number] LAURENT M.D. FINAL REPORT Attending: ??MARCELINA, ??SOURAV Requesting: ??TAMIA, ??JOHNATHON Requesting Fax: ?? Attending Fax: ?? Attending ID: ??[id number] Requesting ID: ??[id number] Report To 1 ID: ??[id number] ? Report To 1 Name: ??, ?? Report To 1 FAX: ?? NextGen Order #: ?? Procedure Note Miscellaneous, Not In File - 11/24/2017 ZACH LAURENT M.D. FINAL REPORT ACC# Date Time Exam [id number] Nov 24, 2017 05:20:00 [id number] Chest 1 view Frontal [id number] Nov 23, 2017 17:01:00 [id number] Chest 1 view Frontal EXAMINATION: 1. Single view anteroposterior chest 11/23/2017 at 4:58 PM 2. Single view anteroposterior chest 11/24/2017 5:00 AM IMPRESSION: 1. Single view chest radiograph from 11/23/2017 has no prior study available for comparison. This study shows diffuse emphysema with focal airspace opacity in the right base. These findings are concerning for an infectious pneumonia. However there are some enlargement in the right hilum. When correlated with recent computed tomography from 11/23/2017, the hilum was not included on this study. But findings are suggestive of pneumonia superimposed on emphysema. The left lung is clear. There is no left pleural effusion but there is a tiny right pleural effusion. No pneumothorax. The heart size is is at upper limit of normal. 2. Single view chest radiograph from 11/24/2017 shows no significant change. Again findings are most suggestive of a pneumonia superimposed on emphysema. However we would recommend follow-up to resolution to exclude the possibility of a central obstructing mass. Electronically signed by: Zach Laurent M.D. Requested By: [facility] Dictated By: ZACH LAURENT M.D. on Nov 24 2017 6:29A This document has been electronically signed by: ZACH LAURENT M.D. on Nov 24 2017 6:29A [id number] LAURENT M.D. FINAL REPORT Attending: SOURAV CALLEJAS Requesting: [facility] Requesting Fax: Attending Fax: Attending ID: [id number] Requesting ID: [id number] Report To 1 ID: [id number] Report To 1 Name: , Report To 1 FAX: NextGen Order #: Johnathon Nuñez EXPLOSIVE ORDNANCE DISPOSAL TECHNICIAN IMG XR PROCEDURES Final Re sult * Glucose POC (11/23/2017 8:12 PM CITY CONTROLLER) Glucose, POC 137 70 - 199 mg/dL [facility] Blood specimen (specimen) 11/23/2017 8:12 PM CITY CONTROLLER 11/23/2017 8:12 PM CITY CONTROLLER Narrative [facility] - 11/23/2017 8:34 PM CITY CONTROLLER Sourav Callejas MD POINT OF CARE TEST ORDERABLES Final Result [facility] Department [place] [address] * Tacrolimus level, random (11/23/2017 7:32 PM CITY CONTROLLER) Pathologist [facility] [place] Tacrolimus, random <1.0 ng/mL [facility] Comment: Undetectable. ??Please verify that the correct immunosuppressant test was requested. Interpretive Data Testing performed by liquid chromatography-tandem mass spectrometry (LC- MS/MS).This test was developed using an analyte specific reagent. Its performance characteristics were determined by the [facility] in a manner consistent with CLIA requirements. ??This test has not been cleared or approved by the U.S. Food and Drug Administration. Current interpretive data was last revised on 2016. Blood specimen (specimen) 11/23/2017 7:32 PM CITY CONTROLLER 11/23/2017 8:31 PM CITY CONTROLLER Narrative [facility] - 11/24/2017 2:41 AM CITY CONTROLLER Silva Saini EXPLOSIVE ORDNANCE DISPOSAL TECHNICIAN LAB BLOOD ORDERABL ES Final Result [facility] Department [place] [address] * (ABNORMAL) POCT arterial blood gas, CPB (11/23/2017 7:28 PM CITY CONTROLLER) pH, art POC 7.23(L) 7.35 - 7.45 [facility] pCO2, art POC 29(L) 35 - 45 mmHg [facility] pO2, art POC 72(L) 80 - 105 mmHg [facility] Na POC 135 135 - 145 mmol/L [facility] K POC 3.4 3.3 - 4.9 mmol/L [facility] Ionized Ca, POC 4.21(L) 4.50 - 5.10 mg/dL [facility] Hematocrit POC 40.0 38.9 - 50.3 % [facility] Glucose POC GEM 3000 168 70 - 199 mg/dL [facility] Lactate POC GEM 3000 6.4(C) 0.7 - 2.2 mmol/L [facility] HCO3, art POC 12(L) 20 - 30 mmol/L [facility] Total CO2, art POC 13(L) 21 - 30 mmol/L [facility] BE, art POC -14.1 mmol/L [facility] O2 sat art POC 91(L) 95 - 98 % [facility] Blood specimen (specimen) 11/23/2017 7:28 PM CITY CONTROLLER 11/23/2017 7:28 PM CITY CONTROLLER Narrative [facility] - 11/23/2017 7:52 PM CITY CONTROLLER us Sourav Callejas MD LAB POCT ORDERABLES - DEVICE F inal Result Performing Organization Address City/[facility]/[place] [address] * CMV DNA QN, PCR (11/23/2017 4:42 PM CITY CONTROLLER) Pathologist [facility] [place] CMV DNA Not Detected [facility] Comment: Interpretive Data: The quantifiable range of this assay is 137 IUnits/mL to 9,100,000 IUnits/mL (2.14 log IUnits/mL to 6.96 log IUnits/mL). Testing was performed by the MICHEL AmpliPrep/MICHEL TaqMan CMV Test ([employer] Testing performed at [facility] Current interpretive data was last revised on 17. Blood specimen (specimen) 11/23/2017 4:42 PM CITY CONTROLLER 11/23/2017 9:35 PM CITY CONTROLLER Narrative [facility] - 11/24/2017 7:30 PM CITY CONTROLLER Johnathon Nuñez EXPLOSIVE ORDNANCE DISPOSAL TECHNICIAN LAB MICROBIOLOGY - GENERAL ORDERABLES Final Result Performing Organization Address [facility] [place] [address] * Beta-hydroxybutyrate (11/23/2017 4:42 PM CITY CONTROLLER) Pathologist [facility] [place] Beta-Hydroxybut yrate 0.1 0.0 - 0.5 mmol/L [facility] Blood specimen (specimen) 11/23/2017 4:42 PM CITY CONTROLLER 11/23/2017 5:15 PM CITY CONTROLLER Narrative [facility] - 11/23/2017 8:29 PM CITY CONTROLLER Johnathon Nuñez EXPLOSIVE ORDNANCE DISPOSAL TECHNICIAN LAB BLOOD ORDERABLES Final Result Performing Organization Address City/[facility]/[place] [address] * (ABNORMAL) Urinalysis reflex to microscopic and culture (11/23/2017 4:42 PM CITY CONTROLLER) Color, ur Yellow Yellow [facility] Clarity, ur Clear Clear [facility] Specific gravity, ur 1.029 1.003 - 1.030 [facility] pH, ur 6.0 5.0 - 8.0 [facility] Albumin, ur 1+(A) Trace [facility] Glucose, ur ql Negative Negative [facility] Ketones, ur Negative Negative [facility] Bilirubin, ur Negative Negative [facility] Blood, ur 1+(A) Negative [facility] Urobilinogen, ur <2.0 <2.0 mg/dL [facility] Nitrites, ur Negative Negative [facility] Leukocyte esterase, ur Negative Negative [facility] Urine 11/23/2017 4:42 PM CITY CONTROLLER 11/23/2017 5:14 PM CITY CONTROLLER Narrative [facility] - 11/23/2017 5:36 PM CITY CONTROLLER Johnathon Nuñez NP LAB MICROBIOLOGY - GENERAL ORDERABLES Final Result [facility] Department [place] [address] * Hemoglobin A1c (11/23/2017 4:42 PM CITY CONTROLLER) Pathologist [facility] [place] Hgb A1C 5.7 4.0 - 6.0 % [facility] Estimated Average Glucose 117 mg/dL [facility] Comment: The ADA recommends reporting an estimated Average Glucose (eAG) with all Hemoglobin A1c results using the equation derived from a study of 507 normal and diabetic adults. ??Minority populations were underrepresented and children were not included. ?? (Diabetes Care 31:5407-3297, 2008). ??The eAG is not equivalent to a fasting glucose. Blood specimen (specimen) 11/23/2017 4:42 PM CITY CONTROLLER 11/23/2017 5:15 PM CITY CONTROLLER Narrative [facility] - 11/23/2017 5:33 PM CITY CONTROLLER Johnathon Nuñez EXPLOSIVE ORDNANCE DISPOSAL TECHNICIAN LAB BLOOD ORDERABLES Final Result Performing Organization Address City/[facility]/ZIP Co de Phone Number [facility] [place] [address] * MRSA culture (11/23/2017 4:40 PM CITY CONTROLLER) Report Final Report: Negative [facility] Nasal 11/23/2017 4:40 PM CITY CONTROLLER 11/23/2017 6:35 PM CITY CONTROLLER Narrative [facility] - 11/23/2017 6:35 PM CITY CONTROLLER Johnathon Nuñez EXPLOSIVE ORDNANCE DISPOSAL TECHNICIAN LAB MICROBIOLOGY - GENERAL ORDERABLES Final Result Performing Organization Address [facility] [place] [address] * Filamentous fungus culture, blood (11/23/2017 4:40 PM CITY CONTROLLER) Report Final Report: No growth of fungus [facility] Blood specimen (specimen) 11/23/2017 4:40 PM CITY CONTROLLER 11/23/2017 6:33 PM CITY CONTROLLER Narrative [facility] - 11/24/2017 7:30 AM CITY CONTROLLER Johnathon Nuñez EXPLOSIVE ORDNANCE DISPOSAL TECHNICIAN LAB MICROBIOLOGY - GENERAL ORDERABLES Final Result Performing Organization Address City/[facility] Co de Phone Number [facility] [place] [address] * Blood culture (11/23/2017 4:40 PM CITY CONTROLLER) Report Final Report: No growth [facility] Blood specimen (specimen) (Peripheral) 11/23/2017 4:40 PM CITY CONTROLLER 11/23/2017 5:58 PM CITY CONTROLLER Narrative [facility] - 11/24/2017 6:29 AM CITY CONTROLLER Blood cultures are incubated for five days [...] ??This assay has been cleared by the [place] Food and Drug Administration and its performance characteristics have been verified by the [facility]. Current Interpretive Data was last revised on 2014. Johnathon Nuñez NP LAB MICROBIOLOGY - GENERAL ORDERABLES Final Result [facility] Department [place] [address] * Blood culture (11/23/2017 4:40 PM CITY CONTROLLER) Report Final Report: No growth [facility] Blood specimen (specimen) (Peripheral) 11/23/2017 4:40 PM CITY CONTROLLER 11/23/2017 6:01 PM CITY CONTROLLER Narrative [facility] - 11/24/2017 6:29 AM CITY CONTROLLER Blood cultures are incubated for five days [...] performance characteristics have been verified by the [facility]. Current Interpretive Data was last revised on 2014. Johnathon Nuñez NP LAB MICROBIOLOGY - GENERAL ORDERABLES Final Result Performing Organization Address City/[facility] Co de Phone Number [facility] [place] [address] * Influenza A/B PCR (11/23/2017 4:40 PM CITY CONTROLLER) Report Final Report: Flu A target RNA not detected Flu B target RNA not detected RSV target RNA not detected [facility] Nasopharyngeal 11/23/2017 4: 40 PM CITY CONTROLLER 11/23/2017 6:34 PM CITY CONTROLLER Narrative [facility] - 11/23/2017 6:34 PM CITY CONTROLLER Interpretive Data This test is performed using the Strong[employer] Xpress Flu/RSV Assay. ??This is a multiplex, real-time reverse transcriptase PCR assay that detects influenza A, influenza B, and respiratory syncytial virus RNA. ??This assay has been cleared by the [place] Food and Drug Administration, and its performance characteristics have been verified by the [facility]. Current interpretive data was last revised on 2017. Johnathon Nuñez EXPLOSIVE ORDNANCE DISPOSAL TECHNICIAN LAB MICROBIOLOGY - GENERAL ORDERABLES Final Result Performing Organization Address [facility] Co de Phone Number [facility] Department [place] [address] * Respiratory virus detection panel (11/23/2017 4:40 PM CITY CONTROLLER) Report Final Report: Respiratory Pathogen nucleic acids NOT DETECTED (NEGATIVE) [facility] Nasopharyngeal 11/23/2017 4: 40 PM CITY CONTROLLER 11/23/2017 7:15 PM CITY CONTROLLER Narrative [facility] - 11/23/2017 7:15 PM CITY CONTROLLER The Superb FilmArray Respiratory Panel (RP2) assay is a [...] FilmArray RP assay is FDA cleared for EXPLOSIVE ORDNANCE DISPOSAL TECHNICIAN swabs. ??Additional sample types have been validated according to CLIA regulations. The performance characteristics of this assay have been determined by [facility] Infectious Disease Laboratory. Current interpretive data was last revised on 2017. us Johnathon Nuñez EXPLOSIVE ORDNANCE DISPOSAL TECHNICIAN LAB MICROBIOLOGY - GENERAL ORDERABLES Final Result [facility] Department [place] [address] * (ABNORMAL) Manual Differential (11/23/2017 4:40 PM CITY CONTROLLER) Neutrophils 81.7 % [facility] Lymphocytes 7.0 % [facility] Monos 1.7 % [facility] Metamyelocyte pct 8.7 % [facility] Myelocyte pct 0.9 % [facility] Anisocytosis 2+(A) [facility] Poikilocytosis 3+(A) [facility] Macrocytes 8-15/HPF( A) [facility] Echinocytes Present(A ) [facility] WBC counted 115 Cells [facility] RBC morphology Present(A ) [facility] Neutrophil abs 2.52 1.70 - 6.50 K/cumm [facility] Lymphs, abs 0.22(L) 0.80 - 3.30 K/cumm [facility] Monos, abs 0.05(L) 0.20 - 0.80 K/cumm [facility] Immature granulocyte, abs 0.30(H) 0.00 - 0.10 K/cumm [facility] Blood specimen (specimen) 11/23/2017 4:40 PM CITY CONTROLLER 11/23/2017 5:20 PM CITY CONTROLLER Narrative [facility] - 11/23/2017 5:58 PM CITY CONTROLLER us Johnathon Nuñez EXPLOSIVE ORDNANCE DISPOSAL TECHNICIAN LAB BLOOD ORDERABLES Final Result Performing Organization Address [facility] de Phone Number [facility] Department [place] [address] * Triglycerides (11/23/2017 4:40 PM CITY CONTROLLER) Pathologist [facility] [place] Triglycerides 75 0 - 150 mg/dL [facility] Comment: Interpretive Data Desirable: ? < 150 mg/dL Borderline High: ? 150 - 199 mg/dL High: ?> 200 mg/dL Literature Reference: See Cholesterol Current interpretive data was last revised on 07. Blood specimen (specimen) 11/23/2017 4:40 PM CITY CONTROLLER 11/23/2017 5:14 PM CITY CONTROLLER Narrative [facility] - 11/23/2017 5:49 PM CITY CONTROLLER Johnathon Nuñez EXPLOSIVE ORDNANCE DISPOSAL TECHNICIAN LAB BLOOD ORDERABLES Final Result Performing Organization Address [facility]/ZIP Co de Phone Number [facility] [place] [address] * Troponin I (11/23/2017 4:40 PM CITY CONTROLLER) Pathologist [facility] [place] Troponin I <0.03 0.00 - 0.03 ng/mL [facility] Comment: Interpretive Data Serial determinations are recommended for the diagnosis of myocardial infarction (Third Hartwell Definition of Myocardial Infarction. ??J Am Kizzy Cardiol 2012;60:1581-98). Current interpretive data was last revised on 13. Blood specimen (specimen) 11/23/2017 4:40 PM CITY CONTROLLER 11/23/2017 5:19 PM CITY CONTROLLER Narrative [facility] - 11/23/2017 5:43 PM CITY CONTROLLER Johnathon Nuñez EXPLOSIVE ORDNANCE DISPOSAL TECHNICIAN LAB BLOOD ORDERABLES Final Result Performing Organization Address [facility]/ZIP Co de Phone Number [facility] [place] [address] * Type and screen (11/23/2017 4:40 PM CITY CONTROLLER) Pathologist [facility] [place] Ursula, indirect Negative [facility] ABO Rh A Positive [facility] Blood specimen (specimen) 11/23/2017 4:40 PM CITY CONTROLLER 11/23/2017 4:54 PM CITY CONTROLLER Narrative [facility] - 11/23/2017 5:41 PM CITY CONTROLLER Johnathon Nuñez EXPLOSIVE ORDNANCE DISPOSAL TECHNICIAN LAB BLOOD BANK TEST [place] [address] * (ABNORMAL) Comprehensive metabolic panel (11/23/2017 4:40 PM CITY CONTROLLER) [facility] Sodium 136 135 - 145 mmol/L [facility] Potassium, pl 3.3 3.3 - 4.9 mmol/L [facility] CO2 15(L) 22 - 32 mmol/L [facility] BUN 20 8 - 25 mg/dL [facility] [facility] Glucose 153 70 - 199 mg/dL [facility] Comment: Interpretive Data Fasting glucose >/= [...] interpretive data was last revised 2017. Creatinine 1.12 0.80 - 1.30 mg/dL [facility] Calcium 7.3(L) 8.5 - 10.3 mg/dL [facility] Chloride 104 97 - 110 mmol/L [facility] Albumin 2.6(L) 3.5 - 5.0 g/dL [facility] AST 31 10 - 50 Units/L [facility] ALT 21 7 - 55 Units/L [facility] Alk phos 102 40 - 130 Units/L [facility] Bilirubin, total 1.7(H) 0.1 - 1.2 mg/dL [facility] Protein, pl 5.5(L) 6.5 - 8.5 g/dL [facility] Anion gap 17(H) 2 - 15 mmol/L [facility] Blood specimen (specimen) 11/23/2017 4:40 PM CITY CONTROLLER 11/23/2017 4:58 PM CITY CONTROLLER Narrative [facility] - 11/23/2017 5:33 PM CITY CONTROLLER us Johnathon Nuñez EXPLOSIVE ORDNANCE DISPOSAL TECHNICIAN LAB BLOOD ORDERABLES Final Result [facility] Department [place] [address] * Magnesium (11/23/2017 4:40 PM CITY CONTROLLER) Magnesium 1.6 1.4 - 2.5 mg/dL [facility] Blood specimen (specimen) 11/23/2017 4:40 PM CITY CONTROLLER 11/23/2017 4:58 PM CITY CONTROLLER Narrative [facility] - 11/23/2017 5:33 PM CITY CONTROLLER Johnathon Nuñez EXPLOSIVE ORDNANCE DISPOSAL TECHNICIAN LAB BLOOD ORDERABLES Final Result Performing Organization Address [facility] Co de Phone Number [facility] [place] [address] * Phosphorus (11/23/2017 4:40 PM CITY CONTROLLER) Phosphorus, pl 3.4 2.3 - 4.5 mg/dL [facility] Blood specimen (specimen) 11/23/2017 4:40 PM CITY CONTROLLER 11/23/2017 4:58 PM CITY CONTROLLER Narrative [facility] - 11/23/2017 5:33 PM CITY CONTROLLER Johnathon Nuñez EXPLOSIVE ORDNANCE DISPOSAL TECHNICIAN LAB BLOOD ORDERABLES Final Result Performing Organization Address [facility] de Phone Number [facility] Department [place] [address] * (ABNORMAL) Lipase (11/23/2017 4:40 PM CITY CONTROLLER) Pathologist [facility] Lipase 8(L) 10 - 99 Units/L [facility] Blood specimen (specimen) 11/23/2017 4:40 PM CITY CONTROLLER 11/23/2017 4:58 PM CITY CONTROLLER Narrative [facility] - 11/23/2017 5:33 PM CITY CONTROLLER Johnathon Nuñez EXPLOSIVE ORDNANCE DISPOSAL TECHNICIAN LAB BLOOD ORDERABLES Final Result Performing Organization Address [facility] [place] [address] * Lactate dehydrogenase (LD) (11/23/2017 4:40 PM CITY CONTROLLER) Lactate dehydrogenase (LDH) 131 100 - 250 Units/L [facility] Blood specimen (specimen) 11/23/2017 4:40 PM CITY CONTROLLER 11/23/2017 4:58 PM CITY CONTROLLER Narrative [facility] - 11/23/2017 5:33 PM CITY CONTROLLER Johnathon Nuñez EXPLOSIVE ORDNANCE DISPOSAL TECHNICIAN LAB BLOOD ORDERABLES Final Result Performing Organization Address [facility] de Phone Number [facility] [place] [address] * Amylase (11/23/2017 4:40 PM CITY CONTROLLER) Amylase 35 30 - 100 Units/L [facility] Blood specimen (specimen) 11/23/2017 4:40 PM CITY CONTROLLER 11/23/2017 4:58 PM CITY CONTROLLER Narrative [facility] - 11/23/2017 5:33 PM CITY CONTROLLER Johnathon Nuñez EXPLOSIVE ORDNANCE DISPOSAL TECHNICIAN LAB BLOOD ORDERABLES Final Result Performing Organization Address [facility] de Phone Number [facility] [place] [address] * (ABNORMAL) Protime-INR (11/23/2017 4:40 PM CITY CONTROLLER) PT 16.4(H) 8.5 - 13.0 sec [facility] INR 1.52(H) 0.80 - 1.21 [facility] Comment: Interpretive Data Inpatient therapeutic ranges* Atrial fibrillation ?2.0-3.0 INR Venous thrombo-embolism ?2.0-3.0 INR Bioprosthetic heart valve ?* Mechanical heart valve, bileaflet or tilting disk,aortic position ? 2.0-3.0 INR All other,or bileaflet or tilting disk, in mitral position ? 2.5-3.5 INR *See the pharmacy resource directory (PHRED) for an updated copy of the Tool Book at [email or web address] Current Interpretive Data was last revised 2012. Blood specimen (specimen) 11/23/2017 4:40 PM CITY CONTROLLER 11/23/2017 5:14 PM CITY CONTROLLER Narrative [facility] - 11/23/2017 5:27 PM CITY CONTROLLER us Johnathon Nuñez EXPLOSIVE ORDNANCE DISPOSAL TECHNICIAN LAB BLOOD ORDERABLES Final Result [facility] Department [place] [address] * (ABNORMAL) CBC with auto differential (11/23/2017 4:40 PM CITY CONTROLLER) WBC 3.08(L) 3.80 - 9.90 K/cumm [facility] RBC 3.67(L) 4.30 - 5.80 M/cumm [facility] Hgb 12.7(L) 13.0 - 17.5 g/dL [facility] Hct 37.4(L) 38.9 - 50.3 % [facility] MCV 101.9(H) 81.3 - 96.4 fL [facility] MCH 34.6(H) 27.1 - 33.3 pg [facility] MCHC 34.0 32.3 - 35.7 g/dL [facility] RDW CV 15.9(H) 11.1 - 14.9 % [facility] RDW SD 60.0(H) 35.7 - 48.1 fL [facility] Plt 159 150 - 400 K/cumm [facility] MPV 10.7 9.1 - 12.3 fL [facility] NRBC 0.0 0.0 - 0.2 % [facility] NRBC abs 0.00 0.00 - 0.01 K/cumm [facility] Blood specimen (specimen) 11/23/2017 4:40 PM CITY CONTROLLER 11/23/2017 5:15 PM CITY CONTROLLER Narrative [facility] - 11/23/2017 5:57 PM CITY CONTROLLER us Johnathon Nuñez EXPLOSIVE ORDNANCE DISPOSAL TECHNICIAN LAB BLOOD ORDERABLES Final Result Performing Organization Address City/[facility]/ZIP Co de Phone Number [facility] Department [place] [address] * (ABNORMAL) POCT arterial blood gas, CPB (11/23/2017 4:15 PM CITY CONTROLLER) [facility] pH, art POC 7.27(L) 7.35 - 7.45 [facility] pCO2, art POC 31(L) 35 - 45 mmHg [facility] pO2, art POC 66(L) 80 - 105 mmHg [facility] Na POC 136 135 - 145 mmol/L [facility] K POC 3.4 3.3 - 4.9 mmol/L [facility] Ionized Ca, POC 4.21(L) 4.50 - 5.10 mg/dL [facility] Hematocrit POC 40.0 38.9 - 50.3 % [facility] Glucose POC GEM 3000 157 70 - 199 mg/dL [facility] Lactate POC GEM 3000 5.9(C) 0.7 - 2.2 mmol/L [facility] HCO3, art POC 14(L) 20 - 30 mmol/L [facility] Total CO2, art POC 15(L) 21 - 30 mmol/L [facility] BE, art POC -11.5 mmol/L [facility] O2 sat art POC 89(L) 95 - 98 % [facility] Blood specimen (specimen) 11/23/2017 4:15 PM CITY CONTROLLER 11/23/2017 4:15 PM CITY CONTROLLER Narrative [facility] - 11/25/2017 2:38 PM CITY CONTROLLER us Sourav Callejas MD LAB POCT ORDERABLES - DEVICE F inal Result Performing Organization Address [facility]/ZIP Co de Phone Number [facility] Department [place] [address] * TRANSTHORACIC ECHO (TTE) COMPLETE W DOPPLER/CF WO CONTRAST (11/23/2017) Anatomical Region Laterality Modality Ultrasound us Provider Scanning CV ECHO PROCEDURES Final Resul t * ELECTROCARDIOGRAPHY (ECG) (11/23/2017) us Provider Scanning ECG ORDERABLES Edited Result - Final * ELECTROCARDIOGRAPHY (ECG) (11/23/2017) us Provider Scanning ECG ORDERABLES Edited Result - Final documented in this encounter Visit Diagnoses Not on filedocumented in this encounter 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
--- OUTSIDE RECORDS SUMMARY | 2024-11-22 11:10 | XMS_ITS | Encounter Summary ---
Author Organization [facility] Healthcare Address [address] [place] [address] Care Team Providers Care Smoking Pipe Repairer Name Role Phone Unavailable Primary Care Provider Unavailabl e Encounter Details Date Type Department Care Team (Late st Contact Info) Description 02/04/2017 Orders Only [facility] Inter[facility] [phone] Josué Del Valle MD PhD [address] [facility] [employer], [address] [place], [place] [id number] Social History Tobacco Use Types Packs/Day Years Used Date Smoking Tobacco: Never Assessed Sex and Gender Information Value Date Recorded Sex Assigned at Not on file 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 Gender Identity Not on file Sexual Orientation Not on file documented as of this encounter Plan of Treatment Not on file documented as of this encounter Procedures Procedure Name Priority Date/Time Associated Diagnosis Comments PSA SCREEN Routine Gen Lab 02/04/2017 8:36 AM CDT documented in this encounter Results * PSA screen (02/04/2017 8:36 AM CDT) PSA-Total 0.7 0.1 - 4.0 ng/mL [facility] Blood specimen (specimen) 02/04/2017 8:36 AM CDT 02/04/2017 9:05 AM CDT us Josué Del Valle MD PhD LAB BLOOD ORDERABLES Fin al Result Performing Organization Address City/State/[facility] Co de Phone Number [facility] [place] [address] documented in this encounter Visit Diagnoses Not on filedocumented in this encounter 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
--- OUTSIDE RECORDS SUMMARY | 2024-11-22 11:10 | XMS_ITS | Encounter Summary ---
Author Organization [facility] Healthcare Address [address] [place] [address] Care Team Providers Care Application Analyst Name Role Phone Unavailable Primary Care Provider Unavailabl e Encounter Details Date Type Department Care Team (Latest Contact Info) Description 09/05/2016 1:00 AM CDT - 02/04/2017 11:59 PM CDT Hospital Encounter [facility] [phone] Josué Del Valle MD PhD [address] BONE [employer]ARROW TR[employer], [address] [place] [address] Discharge Disposition: Discharge to home or self care Social History Tobacco Use Types Packs/Day Years Used Date Smoking Tobacco: Never Assessed Sex and Gender Information Value Date Recorded Sex Assigned at Not on file 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 12/14/2016 07/28/2018 glucagon (glucagon) 1 mg kitIndications:A ML (acute [...]
--- OUTSIDE RECORDS SUMMARY | 2024-11-22 11:10 | XMS_ITS | Encounter Summary ---
Author Organization [facility] Healthcare Address [address] [place] [address] Care Team Providers Care Wheelchair Rental Clerk Name Role Phone Unavailable Primary Care Provider Unavailabl e Encounter Details Date Type Department Care Team (Late st Contact Info) Description 02/04/2017 Orders Only [facility] [phone] Josué Del Valle MD PhD [address] IM BONE MARROW TR[employer]PLANT, [address] [place], [place] [id number] Social History Tobacco Use Types Packs/Day Years Used Date Smoking Tobacco: Never Assessed Sex and Gender Information Value Date Recorded Sex Assigned at Not on file 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 Gender Identity Not on file Sexual Orientation Not on file documented as of this encounter Plan of Treatment Not on file documented as of this encounter Procedures Procedure Name Priority Date/Time Associated Diagnosis Comments T3, FREE Routine Gen Lab 02/04/2017 8:20 AM CDT documented in this encounter Results * T3, free (02/04/2017 8:20 AM CDT) Free T3 3.6 2.0 - 4.4 pg/mL [facility] Blood specimen (specimen) 02/04/2017 8:20 AM CDT 02/04/2017 9:21 AM CDT us Josué Del Valle MD PhD LAB BLOOD ORDERABLES Fin al Result Performing Organization Address City/State/[facility] Co de Phone Number [facility] One [facility] [place] [address] documented in this encounter Visit Diagnoses Not on filedocumented in this encounter 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
--- OUTSIDE RECORDS SUMMARY | 2024-11-22 11:11 | XMS_ITS | Encounter Summary ---
Author Organization [facility] Facility Care Team Providers Care Guest Services Attendant Name Role Phone Unavailable Primary Care Provider Unavailabl e Encounter Details Date Type Department Care Team (Late st Contact Info) Description 12/14/2013 - 11/17/2014 11:59 PM ART DEPARTMENT HEAD Hospital Encounter [facility] Josué Armenta MD PhD [address] DIV IM [employer], [address] [address] Other chronic pain; Other thalassemia (CMS/HCC) (HCC) Social History Tobacco Use Types Packs/Day Years Used Date Smoking Tobacco: Never Assessed Sex and Gender Information Value Date Recorded Sex Assigned at Not on file Legal Sex Male 10:48 AM ART DEPARTMENT HEAD Gender Identity Not on file Sexual Orientation Not on file documented as of this encounter Medications at Time of Discharge acyclovir (ZOVIRAX) 400 mg tabletIndication s: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 11/03/2012 06/24/2018 documented as of this encounter Plan of Treatment Not on file documented as of this encounter Procedures Procedure Name Priority Date/Time Associated Diagnosis Comments DISCHARGE LABORATORY CUMULATIVE REPORT Routine 11/17/2014 12:00 AM ART DEPARTMENT HEAD SERUM LACTATE DEHYDROGENASE (LDH) Routine 10/12/2014 12:32 PM ART DEPARTMENT HEAD PLASMA COMPREHENSIVE METABOLIC PANEL Routine 10/12/2014 12:32 PM ART DEPARTMENT HEAD BLOOD TACROLIMUS (FK-506) DRUG LEVEL Routine 10/12/2014 12:32 PM ART DEPARTMENT HEAD BLOOD HEMOGLOBIN A1C Routine 10/12/2014 12:32 PM ART DEPARTMENT HEAD BLOOD CELL COUNT Routine 10/12/2014 12:2 8 PM ART DEPARTMENT HEAD BLOOD TACROLIMUS (FK-506) DRUG LEVEL Routine 09/08/2014 1:03 PM CDT BLOOD MORPHOLOGY SCREEN Routine 09/08/2014 1:00 PM CDT BLOOD CELL COUNT Routine 09/08/2014 1:00 PM CDT SERUM LIPID PANEL Routine 09/08/2014 12: 43 PM CDT SERUM LACTATE DEHYDROGENASE (LDH) Routine 09/08/2014 12:43 PM CDT PLASMA COMPREHENSIVE METABOLIC PANEL Routine 09/08/2014 12:43 PM CDT BLOOD CELL COUNT Routine 08/17/2014 1:11 PM CDT SERUM LACTATE DEHYDROGENASE (LDH) Routine 08/17/2014 1:10 PM CDT PLASMA COMPREHENSIVE METABOLIC PANEL Routine 08/17/2014 1:10 PM CDT SERUM LACTATE DEHYDROGENASE (LDH) Routine 05/11/2014 11:00 AM CDT PLASMA COMPREHENSIVE METABOLIC PANEL Routine 05/11/2014 11:00 AM CDT BLOOD TACROLIMUS (FK-506) DRUG LEVEL Routine 05/11/2014 11:00 AM CDT BLOOD CELL COUNT Routine 05/11/2014 10:5 9 AM CDT BLOOD CELL COUNT Routine 03/17/2014 2:33 PM CDT SERUM LACTATE DEHYDROGENASE (LDH) Routine 03/17/2014 2:28 PM CDT PLASMA COMPREHENSIVE METABOLIC PANEL Routine 03/17/2014 2:28 PM CDT BLOOD TACROLIMUS (FK-506) DRUG LEVEL Routine 03/17/2014 2:28 PM CDT SERUM LACTATE DEHYDROGENASE (LDH) Routine 12/14/2013 1:19 PM ART DEPARTMENT HEAD PLASMA PROTHROMBIN TIME (PT) Routine 12/14/2013 1:19 PM ART DEPARTMENT HEAD PLASMA COMPREHENSIVE METABOLIC PANEL Routine 12/14/2013 1:19 PM ART DEPARTMENT HEAD BLOOD CELL COUNT Routine 12/14/2013 1:19 PM ART DEPARTMENT HEAD documented in this encounter Results * Discharge Laboratory Cumulative Report (11/17/2014 12:00 AM ART DEPARTMENT HEAD) 11/17/2014 Narrative HISTORICAL RESULTS - 10/13/2014 11:34 AM ART DEPARTMENT HEAD ?[facility] ?Department of Laboratories ? [address] [facility] [address] ?[place], [place] [address] Patient Name: ?BRI JONES Rec Number: ??[id number] Fin Number: ?[id number] Date: ?1965 Sex/Age: ? Male 48 years Admit Date: ?12/14/2013 Discharge Date: ??11/17/2014 Doctor: ?Josué Del Valle Facility: ?[facility] Location: ?BCC Chart Printed: ?? 10/13/2014 ??11:34 ?* Abnormal ?? C Critical ?? f Footnote ?? ^ Corrected ?? L Low ?? H High ?i Interp Data ?? @ Reference Lab ? Chart Type: Periodic ?TOXICOLOGY/THERAPEUTIC DRUG MONITORING ?Therapeutic Drug Levels ?Test: ? Tacrolimus, Rnd i ?Reference: ?Units: ?ng/mL 10/12/2014 ??12:32:30 ?2.1 10/12/2014 12:32:30 Tacrolimus, Rnd: Interpretive Data This test was developed using an analyte specific reagent. ??Its performance characteristics were determined by the [facility] in a manner consistent with CLIA requirements. ??This test has not been cleared or approved by the U.S. Food and Drug Administration. Current interpretive data was last revised on 2012. Historical Provider MD LAB BLOOD ORDERABLES Pilar l Result Performing Organization Address City/[facility] Co de Phone Number HISTORICAL RESULTS * Blood tacrolimus (FK-506) drug level (10/12/2014 12:32 PM ART DEPARTMENT HEAD) Pathologist [facility] Tacrolimus 2.1 ng/ml HISTORICA L RESULTS Comment: Interpretive Data This test was developed using an analyte specific reagent. ??Its performance characteristics were determined by the [facility] in a manner consistent with CLIA requirements. This test has not been cleared or approved by the U.S. Food and Drug Administration. Current interpretive data was last revised on 2012. Blood specimen (specimen) 10/12/2014 12:32 PM ART DEPARTMENT HEAD Josué Del Valle MD PhD LAB BLOOD ORDERABLES Fin al Result Performing Organization Address [facility] Co de Phone Number HISTORICAL RESULTS * (ABNORMAL) Plasma comprehensive metabolic panel (10/12/2014 12:32 PM ART DEPARTMENT HEAD) Pathologist [facility] Sodium 143 135 - 145 mmol/L HISTORICAL RESULTS K, pl 5.2(H) 3.3 - 4.9 mmol/L HISTORICAL RESULTS Chloride 100 97 - 110 mmol/L HISTORICAL RESULTS CO2 28 22 - 32 mmol/L HISTORICAL RESULTS A. gap 16 0 - 16 mmol/L HISTORICAL RESULTS Glucose 273(H) 70 - 199 mg/dl HISTORICAL RESULTS BUN 16 8 - 25 mg/dl HISTORICAL RESULTS Creatinine 0.89 0.70 - 1.30 mg/dl HISTORICAL RESULTS Calcium 10.5(H) 8.6 - 10.3 mg/dl HISTORICAL RESULTS Protein, pl 7.6 6.5 - 8.5 g/dl HISTORICAL RESULTS Alb 4.5 3.6 - 5.0 g/dl HISTORICAL RESULTS Bilirubin 0.5 0.3 - 1.1 mg/dl HISTORICAL RESULTS Alk phos 132(H) 38 - 126 Units/L HISTORICAL RESULTS AST 45 11 - 47 Units/L HISTORICAL RESULTS ALT 70(H) 7 - 53 Units/L HISTORICAL RESULTS Plasma 10/12/2014 12:3 2 PM ART DEPARTMENT HEAD Josué Del Valle MD PhD LAB BLOOD ORDERABLES Fin al Result Performing Organization Address [facility] de Phone Number HISTORICAL RESULTS * (ABNORMAL) Serum lactate dehydrogenase (LDH) (10/12/2014 12:32 PM ART DEPARTMENT HEAD) Lactate dehydrogenase (LDH) 314(H) 100 - 250 Units/L HISTORICAL RESULTS Serum 10/12/2014 12:3 2 PM ART DEPARTMENT HEAD Josué Del Valle MD PhD LAB BLOOD ORDERABLES Fin al Result Performing Organization Address [facility] Phone Number HISTORICAL RESULTS * (ABNORMAL) Blood hemoglobin A1C (10/12/2014 12:32 PM ART DEPARTMENT HEAD) Hgb A1C 8.5(H) 4.0 - 6.0 % HISTORICAL RESULTS Estimated average glucose 197 mg/dl HISTORICAL RESULTS Comment: The ADA recommends reporting an estimated Average Glucose (eAG) with all Hemoglobin A1c results using the equation derived from a study of 507 normal and diabetic adults. ??Minority populations were underrepresented and children were not included. ??(Diabetes Care 31:6832-5347, 2008). ??The eAG is not equivalent to a fasting glucose. Blood specimen (specimen) 10/12/2014 12:32 PM ART DEPARTMENT HEAD Josué Del Valle MD PhD LAB BLOOD ORDERABLES Fin al Result Performing Organization Address [facility] de Phone Number HISTORICAL RESULTS * (ABNORMAL) Blood cell count [CBC] panel, 7 CAM (10/12/2014 12:28 PM ART DEPARTMENT HEAD) WBC 18.2(H) 3.8 - 9.8 K/cumm HISTORICAL RESULTS RBC 4.65 4.50 - 5.70 M/cumm HISTORICAL RESULTS Hgb 16.8 13.8 - 17.2 g/dl HISTORICAL RESULTS Hct 51.0(H) 40.7 - 50.3 % HISTORICAL RESULTS MCV 109.7(H) 80.0 - 97.6 fl HISTORICAL RESULTS MCH 36.2(H) 26.7 - 33.7 pg HISTORICAL RESULTS MCHC 33.0 32.7 - 35.5 g/dl HISTORICAL RESULTS Rdw 14.1 11.8 - 14.6 % HISTORICAL RESULTS Platelets 233 140 - 440 K/cumm HISTORICAL RESULTS MPV 8.2 6.8 - 10.4 fl HISTORICAL RESULTS Neutrophils 93.6(H) 38.7 - 74.5 % HISTORICAL RESULTS Lymphocytes 3.8(L) 20.0 - 54.3 % HISTORICAL RESULTS Monos 2.1(L) 4.3 - 13.5 % HISTORICAL RESULTS Eosinophils 0.0 0.0 - 6.0 % HISTORICAL RESULTS Basophils 0.5 0.0 - 3.0 % HISTORICAL RESULTS Neutrophils, abs 17.1(H) 1.8 - 6.6 K/cumm HISTORICAL RESULTS Lymphocytes, abs 0.7(L) 1.2 - 3.3 K/cumm HISTORICAL RESULTS Monocytes, absolute 0.4 0.2 - 1.2 K/cumm HISTORICAL RESULTS Eosinophils, abs 0.0 0.0 - 0.5 K/cumm HISTORICAL RESULTS Basophils, abs 0.1 0.0 - 0.2 K/cumm HISTORICAL RESULTS Blood specimen (specimen) 10/12/2014 12:28 PM ART DEPARTMENT HEAD Josué Del Valle MD PhD LAB BLOOD ORDERABLES Fin al Result HISTORICAL RESULTS * Blood tacrolimus (FK-506) drug level (09/08/2014 1:03 PM CDT) [facility] Signature Tacrolimus 1.0 ng/ml HISTORICA L RESULTS Comment: Interpretive Data This test was developed using an analyte specific reagent. ??Its performance characteristics were determined by the [facility] in a manner consistent with CLIA requirements. This test has not been cleared or approved by the U.S. Food and Drug Administration. Current interpretive data was last revised on 2012. Blood specimen (specimen) 09/08/2014 1:03 PM CDT Josué Del Valle MD PhD LAB BLOOD ORDERABLES Fin al Result HISTORICAL RESULTS * Blood morphology screen (09/08/2014 1:00 PM CDT) Morphology scrn Original results obtained required verification by peripheral smear HISTORICAL RESULTS Blood specimen (specimen) 09/08/2014 1:00 PM CDT Josué Del Valle MD PhD LAB BLOOD ORDERABLES Fin al Result Performing Organization Address [facility] Co de Phone Number HISTORICAL RESULTS * (ABNORMAL) Blood cell count [CBC] panel, 7 CAM (09/08/2014 1:00 PM CDT) WBC 14.5(H) 3.8 - 9.8 K/cumm HISTORICAL RESULTS RBC 4.85 4.50 - 5.70 M/cumm HISTORICAL RESULTS Hgb 17.5(H) 13.8 - 17.2 g/dl HISTORICAL RESULTS Hct 52.9(H) 40.7 - 50.3 % HISTORICAL RESULTS MCV 109.0(H) 80.0 - 97.6 fl HISTORICAL RESULTS MCH 36.1(H) 26.7 - 33.7 pg HISTORICAL RESULTS MCHC 33.1 32.7 - 35.5 g/dl HISTORICAL RESULTS Rdw 14.6 11.8 - 14.6 % HISTORICAL RESULTS Platelets 250 140 - 440 K/cumm HISTORICAL RESULTS MPV 8.7 6.8 - 10.4 fl HISTORICAL RESULTS Neutrophils 84.2(H) 38.7 - 74.5 % HISTORICAL RESULTS Lymphocytes 11.6(L) 20.0 - 54.3 % HISTORICAL RESULTS Monos 3.5(L) 4.3 - 13.5 % HISTORICAL RESULTS Eosinophils 0.3 0.0 - 6.0 % HISTORICAL RESULTS Basophils 0.4 0.0 - 3.0 % HISTORICAL RESULTS Neutrophils, abs 12.2(H) 1.8 - 6.6 K/cumm HISTORICAL RESULTS Lymphocytes, abs 1.7 1.2 - 3.3 K/cumm HISTORICAL RESULTS Monocytes, absolute 0.5 0.2 - 1.2 K/cumm HISTORICAL RESULTS Eosinophils, abs 0.0 0.0 - 0.5 K/cumm HISTORICAL RESULTS Basophils, abs 0.1 0.0 - 0.2 K/cumm HISTORICAL RESULTS Blood specimen (specimen) 09/08/2014 1:00 PM CDT Josué Del Valle MD PhD LAB BLOOD ORDERABLES Fin al Result Performing Organization Address City/[facility] Co de Phone Number HISTORICAL RESULTS * (ABNORMAL) Plasma comprehensive metabolic panel (09/08/2014 12:43 PM CDT) Sodium 137 135 - 145 mmol/L HISTORICAL RESULTS K, pl 5.8(H) 3.3 - 4.9 mmol/L HISTORICAL RESULTS Chloride 98 97 - 110 mmol/L HISTORICAL RESULTS CO2 29 22 - 32 mmol/L HISTORICAL RESULTS A. gap 10 0 - 16 mmol/L HISTORICAL RESULTS Glucose 367(H) 70 - 199 mg/dl HISTORICAL RESULTS BUN 22 8 - 25 mg/dl HISTORICAL RESULTS Creatinine 0.84 0.70 - 1.30 mg/dl HISTORICAL RESULTS Calcium 10.2 8.6 - 10.3 mg/dl HISTORICAL RESULTS Protein, pl 7.6 6.5 - 8.5 g/dl HISTORICAL RESULTS Alb 4.4 3.6 - 5.0 g/dl HISTORICAL RESULTS Bilirubin 0.6 0.3 - 1.1 mg/dl HISTORICAL RESULTS Alk phos 138(H) 38 - 126 Units/L HISTORICAL RESULTS AST 33 11 - 47 Units/L HISTORICAL RESULTS ALT 97(H) 7 - 53 Units/L HISTORICAL RESULTS Plasma 09/08/2014 12:4 3 PM CDT Josué Del Valle MD PhD LAB BLOOD ORDERABLES Fin al Result Performing Organization Address City/[facility]/ZIP Co de Phone Number HISTORICAL RESULTS * (ABNORMAL) Serum lactate dehydrogenase (LDH) (09/08/2014 12:43 PM CDT) Lactate dehydrogenase (LDH) 286(H) 100 - 250 Units/L HISTORICAL RESULTS Serum 09/08/2014 12:4 3 PM CDT Josué Del Valle MD PhD LAB BLOOD ORDERABLES Fin al Result HISTORICAL RESULTS * (ABNORMAL) Serum lipid panel (09/08/2014 12:43 PM CDT) Cholesterol 270(H) 0 - 200 mg/dl HISTORICAL RESULTS Comment: Interpretive Data Desirable: ?<200 mg/dL Borderline high: ??200-239 mg/dL High: ? >240 mg/dL Literature Reference: National Cholesterol Education Program (NCEP) Expert Panel on Detection, Evaluation, and Treatment of High Blood Cholesterol in Adults (Adult Treatment Panel III). ??Circulation 2004; 110:227. Current interpretive data was last revised on 2005. Triglycerides 215(H) 0 - 150 mg/dl HISTORICAL RESULTS Comment: Interpretive Data Desirable: ? < 150 mg/dL Borderline High: ? 150 - 199 mg/dL High: ?> 200 mg/dL Literature Reference: See Cholesterol Current interpretive data was last revised on 07. HDL 64 40 - 199 mg/dl HISTORICAL RESULTS Comment: Interpretive Data Less than 40 mg/dL - low; A major risk factor for heart disease. Greater than or equal to 60 mg/dL - High; ??considered protective of heart disease. Literature Reference: See Cholesterol Current interpretive data was last revised on 2008. LDL 163(H) 0 - 129 mg/dl HISTORICAL RESULTS Comment: Interpretive Data Optimal: ? < 100 mg/dL Near Optimal: ?100 - 129 mg/dL Borderline High: ?? 130 - 159 mg/dL High: ?> 160 mg/dL Literature Reference: See Cholesterol Current interpretive data was last revised on 07. Non-HDL cholesterol, calculated 206 mg/dl HISTORICAL RESULTS Comment: Interpretive Data When triglycerides are >200 mg/dL, non-HDL C is a secondary target of therapy, with a goal 30 mg/dL higher than the identified LDL-C goal. Reference: ??See Cholesterol Reference. Current interpretive data was last revised 2012. Serum 09/08/2014 12:4 3 PM CDT Josué Del Valle MD PhD LAB BLOOD ORDERABLES Clark diana Result HISTORICAL RESULTS * (ABNORMAL) Blood cell count [CBC] panel, 7 CAM (08/17/2014 1:11 PM CDT) Neutrophils 84.7(H) 38.7 - 74.5 % HISTORICAL RESULTS WBC 11.7(H) 3.8 - 9.8 K/cumm HISTORICAL RESULTS Lymphocytes 10.3(L) 20.0 - 54.3 % HISTORICAL RESULTS RBC 4.22(L) 4.50 - 5.70 M/cumm HISTORICAL RESULTS Monos 4.5 4.3 - 13.5 % HISTORICAL RESULTS Hgb 15.6 13.8 - 17.2 g/dl HISTORICAL RESULTS Eosinophils 0.0 0.0 - 6.0 % HISTORICAL RESULTS Hct 45.6 40.7 - 50.3 % HISTORICAL RESULTS Basophils 0.5 0.0 - 3.0 % HISTORICAL RESULTS MCV 107.9(H) 80.0 - 97.6 fl HISTORICAL RESULTS Neutrophils, abs 9.9(H) 1.8 - 6.6 K/cumm HISTORICAL RESULTS MCH 36.9(H) 26.7 - 33.7 pg HISTORICAL RESULTS Lymphocytes, abs 1.2 1.2 - 3.3 K/cumm HISTORICAL RESULTS MCHC 34.2 32.7 - 35.5 g/dl HISTORICAL RESULTS Monocytes, absolute 0.5 0.2 - 1.2 K/cumm HISTORICAL RESULTS Rdw 14.8(H) 11.8 - 14.6 % HISTORICAL RESULTS Eosinophils, abs 0.0 0.0 - 0.5 K/cumm HISTORICAL RESULTS Platelets 189 140 - 440 K/cumm HISTORICAL RESULTS Basophils, abs 0.1 0.0 - 0.2 K/cumm HISTORICAL RESULTS MPV 8.1 6.8 - 10.4 fl HISTORICAL RESULTS Blood specimen (specimen) 08/17/2014 1:11 PM CDT Josué Del Valle MD PhD LAB BLOOD ORDERABLES Fin al Result Performing Organization Address [facility] de Phone Number HISTORICAL RESULTS * (ABNORMAL) Plasma comprehensive metabolic panel (08/17/2014 1:10 PM CDT) Sodium 137 135 - 145 mmol/L HISTORICAL RESULTS K, pl 4.5 3.3 - 4.9 mmol/L HISTORICAL RESULTS Chloride 101 97 - 110 mmol/L HISTORICAL RESULTS CO2 25 22 - 32 mmol/L HISTORICAL RESULTS A. gap 11 0 - 16 mmol/L HISTORICAL RESULTS Glucose 304(H) 70 - 199 mg/dl HISTORICAL RESULTS BUN 16 8 - 25 mg/dl HISTORICAL RESULTS Creatinine 0.82 0.70 - 1.30 mg/dl HISTORICAL RESULTS Calcium 9.2 8.6 - 10.3 mg/dl HISTORICAL RESULTS Protein, pl 6.9 6.5 - 8.5 g/dl HISTORICAL RESULTS Alb 4.4 3.6 - 5.0 g/dl HISTORICAL RESULTS Bilirubin 0.4 0.3 - 1.1 mg/dl HISTORICAL RESULTS Alk phos 101 38 - 126 Units/L HISTORICAL RESULTS AST 40 11 - 47 Units/L HISTORICAL RESULTS ALT 66(H) 7 - 53 Units/L HISTORICAL RESULTS Plasma 08/17/2014 1:10 PM CDT Josué Del Valle MD PhD LAB BLOOD ORDERABLES Fin al Result Performing Organization Address [facility] de Phone Number HISTORICAL RESULTS * (ABNORMAL) Serum lactate dehydrogenase (LDH) (08/17/2014 1:10 PM CDT) Pathologist [facility] Lactate dehydrogenase (LDH) 310(H) 100 - 250 Units/L HISTORICAL RESULTS Serum 08/17/2014 1:10 PM CDT Josué Del Valle MD PhD LAB BLOOD ORDERABLES Fin al Result Performing Organization Address [facility] de Phone Number HISTORICAL RESULTS * Blood tacrolimus (FK-506) drug level (05/11/2014 11:00 AM CDT) Tacrolimus <1.0 ng/ml HISTORICA L RESULTS Comment: Undetectable. ??Please verify that the correct immunosuppressant test was requested. Interpretive Data This test was developed using an analyte specific reagent. ??Its performance characteristics were determined by the [facility] in a manner consistent with CLIA requirements. This test has not been cleared or approved by the U.S. Food and Drug Administration. Current interpretive data was last revised on 2012. Blood specimen (specimen) 05/11/2014 11:00 AM CDT Josué Del Valle MD PhD LAB BLOOD ORDERABLES Clark diana Result HISTORICAL RESULTS * (ABNORMAL) Plasma comprehensive metabolic panel (05/11/2014 11:00 AM CDT) Sodium 140 135 - 145 mmol/L HISTORICAL RESULTS K, pl 4.7 3.3 - 4.9 mmol/L HISTORICAL RESULTS Chloride 104 97 - 110 mmol/L HISTORICAL RESULTS CO2 25 22 - 32 mmol/L HISTORICAL RESULTS A. gap 11 0 - 16 mmol/L HISTORICAL RESULTS Glucose 242(H) 70 - 199 mg/dl HISTORICAL RESULTS BUN 16 8 - 25 mg/dl HISTORICAL RESULTS Creatinine 1.00 0.70 - 1.30 mg/dl HISTORICAL RESULTS Calcium 9.7 8.6 - 10.3 mg/dl HISTORICAL RESULTS Protein, pl 6.8 6.5 - 8.5 g/dl HISTORICAL RESULTS Alb 4.2 3.6 - 5.0 g/dl HISTORICAL RESULTS Bilirubin 0.4 0.3 - 1.1 mg/dl HISTORICAL RESULTS Alk phos 85 38 - 126 Units/L HISTORICAL RESULTS AST 32 11 - 47 Units/L HISTORICAL RESULTS ALT 47 7 - 53 Units/L HISTORICAL RESULTS Plasma 05/11/2014 11:0 0 AM CDT Josué Del Valle MD PhD LAB BLOOD ORDERABLES Fin lebron Result HISTORICAL RESULTS * (ABNORMAL) Serum lactate dehydrogenase (LDH) (05/11/2014 11:00 AM CDT) Lactate dehydrogenase (LDH) 253(H) 100 - 250 Units/L HISTORICAL RESULTS Serum 05/11/2014 11:0 0 AM CDT Josué Del Valle MD PhD LAB BLOOD ORDERABLES Clark dinaa Result HISTORICAL RESULTS * (ABNORMAL) Blood cell count [CBC] panel, 7 CAM (05/11/2014 10:59 AM CDT) WBC 10.2(H) 3.8 - 9.8 K/cumm HISTORICAL RESULTS RBC 4.33(L) 4.50 - 5.70 M/cumm HISTORICAL RESULTS Hgb 16.1 13.8 - 17.2 g/dl HISTORICAL RESULTS Hct 46.6 40.7 - 50.3 % HISTORICAL RESULTS MCV 107.7(H) 80.0 - 97.6 fl HISTORICAL RESULTS MCH 37.1(H) 26.7 - 33.7 pg HISTORICAL RESULTS Comment:{Result consistent w ith previously reported values.} MCHC 34.5 32.7 - 35.5 g/dl HISTORICAL RESULTS Rdw 13.9 11.8 - 14.6 SD HISTORICAL RESULTS Platelets 214 140 - 440 K/cumm HISTORICAL RESULTS MPV 8.1 6.8 - 10.4 fl HISTORICAL RESULTS Neutrophils 88.9(H) 38.7 - 74.5 % HISTORICAL RESULTS Lymphocytes 8.1(L) 20.0 - 54.3 % HISTORICAL RESULTS Monos 2.2(L) 4.3 - 13.5 % HISTORICAL RESULTS Eosinophils 0.4 0.0 - 6.0 % HISTORICAL RESULTS Basophils 0.4 0.0 - 3.0 % HISTORICAL RESULTS Neutrophils, abs 9.1(H) 1.8 - 6.6 K/cumm HISTORICAL RESULTS Lymphocytes, abs 0.8(L) 1.2 - 3.3 K/cumm HISTORICAL RESULTS Monocytes, absolute 0.2 0.2 - 1.2 K/cumm HISTORICAL RESULTS Eosinophils, abs 0.0 0.0 - 0.5 K/cumm HISTORICAL RESULTS Basophils, abs 0.0 0.0 - 0.2 K/cumm HISTORICAL RESULTS Blood specimen (specimen) 05/11/2014 10:59 AM CDT Josué Del Valle MD PhD LAB BLOOD ORDERABLES Fin al Result HISTORICAL RESULTS * (ABNORMAL) Blood cell count [CBC] panel, 7 CAM (03/17/2014 2:33 PM CDT) Pathologist [facility] WBC 10.2(H) 3.8 - 9.8 K/cumm HISTORICAL RESULTS RBC 4.28(L) 4.50 - 5.70 M/cumm HISTORICAL RESULTS Hgb 15.4 13.8 - 17.2 g/dl HISTORICAL RESULTS Hct 45.3 40.7 - 50.3 % HISTORICAL RESULTS MCV 105.9(H) 80.0 - 97.6 fl HISTORICAL RESULTS MCH 35.9(H) 26.7 - 33.7 pg HISTORICAL RESULTS MCHC 33.9 32.7 - 35.5 g/dl HISTORICAL RESULTS Rdw 13.8 11.8 - 14.6 SD HISTORICAL RESULTS Platelets 213 140 - 440 K/cumm HISTORICAL RESULTS MPV 7.9 6.8 - 10.4 fl HISTORICAL RESULTS Neutrophils 88.0(H) 38.7 - 74.5 % HISTORICAL RESULTS Lymphocytes 9.3(L) 20.0 - 54.3 % HISTORICAL RESULTS Monos 2.0(L) 4.3 - 13.5 % HISTORICAL RESULTS Eosinophils 0.1 0.0 - 6.0 % HISTORICAL RESULTS Basophils 0.6 0.0 - 3.0 % HISTORICAL RESULTS Neutrophils, abs 9.0(H) 1.8 - 6.6 K/cumm HISTORICAL RESULTS Lymphocytes, abs 0.9(L) 1.2 - 3.3 K/cumm HISTORICAL RESULTS Monocytes, absolute 0.2 0.2 - 1.2 K/cumm HISTORICAL RESULTS Eosinophils, abs 0.0 0.0 - 0.5 K/cumm HISTORICAL RESULTS Basophils, abs 0.1 0.0 - 0.2 K/cumm HISTORICAL RESULTS Blood specimen (specimen) 03/17/2014 2:33 PM CDT Josué Del Valle MD PhD LAB BLOOD ORDERABLES Fin al Result HISTORICAL RESULTS * Blood tacrolimus (FK-506) drug level (03/17/2014 2:28 PM CDT) Tacrolimus <1.0 ng/ml HISTORICA L RESULTS Comment: Undetectable. ??Please verify that the correct immunosuppressant test was requested. Interpretive Data This test was developed using an analyte specific reagent. ??Its performance characteristics were determined by the [facility] in a manner consistent with CLIA requirements. This test has not been cleared or approved by the U.S. Food and Drug Administration. Current interpretive data was last revised on 2012. Blood specimen (specimen) 03/17/2014 2:28 PM CDT Josué Del Valle MD PhD LAB BLOOD ORDERABLES Fin al Result Performing Organization Address City/[facility]/ZIP Co de Phone Number HISTORICAL RESULTS * Plasma comprehensive metabolic panel (03/17/2014 2:28 PM CDT) [facility] CO2 23 22 - 32 mmol/L HISTORICAL RESULTS Glucose 176 70 - 199 mg/dl HISTORICAL RESULTS BUN 16 8 - 25 mg/dl HISTORICAL RESULTS Creatinine 0.85 0.70 - 1.30 mg/dl HISTORICAL RESULTS Calcium 9.8 8.6 - 10.3 mg/dl HISTORICAL RESULTS Protein, pl 7.2 6.5 - 8.5 g/dl HISTORICAL RESULTS Alb 4.3 3.6 - 5.0 g/dl HISTORICAL RESULTS Bilirubin 0.3 0.3 - 1.1 mg/dl HISTORICAL RESULTS Alk phos 104 38 - 126 Units/L HISTORICAL RESULTS AST 29 11 - 47 Units/L HISTORICAL RESULTS ALT 47 7 - 53 Units/L HISTORICAL RESULTS Sodium 138 135 - 145 mmol/L HISTORICAL RESULTS K, pl 4.7 3.3 - 4.9 mmol/L HISTORICAL RESULTS Chloride 106 97 - 110 mmol/L HISTORICAL RESULTS A. gap 9 0 - 16 mmol/L HISTORICAL RESULTS Plasma 03/17/2014 2:28 PM CDT Josué Del Valle MD PhD LAB BLOOD ORDERABLES Fin al Result Performing Organization Address City/[facility]/ZIP Co de Phone Number HISTORICAL RESULTS * (ABNORMAL) Serum lactate dehydrogenase (LDH) (03/17/2014 2:28 PM CDT) Lactate dehydrogenase (LDH) 291(H) 100 - 250 Units/L HISTORICAL RESULTS Serum 03/17/2014 2:28 PM CDT Josué Del Valle MD PhD LAB BLOOD ORDERABLES Fin al Result Performing Organization Address [facility] de Phone Number HISTORICAL RESULTS * (ABNORMAL) Plasma comprehensive metabolic panel (12/14/2013 1:19 PM ART DEPARTMENT HEAD) Sodium 138 135 - 145 mmol/L HISTORICAL RESULTS K, pl 4.1 3.3 - 4.9 mmol/L HISTORICAL RESULTS Chloride 101 97 - 110 mmol/L HISTORICAL RESULTS CO2 26 22 - 32 mmol/L HISTORICAL RESULTS A. gap 11 0 - 16 mmol/L HISTORICAL RESULTS Glucose 180 70 - 199 mg/dl HISTORICAL RESULTS BUN 16 8 - 25 mg/dl HISTORICAL RESULTS Creatinine 0.68(L) 0.70 - 1.30 mg/dl HISTORICAL RESULTS Calcium 9.8 8.6 - 10.3 mg/dl HISTORICAL RESULTS Protein, pl 7.0 6.5 - 8.5 g/dl HISTORICAL RESULTS Alb 4.0 3.6 - 5.0 g/dl HISTORICAL RESULTS Bilirubin 0.3 0.3 - 1.1 mg/dl HISTORICAL RESULTS Alk phos 135(H) 38 - 126 Units/L HISTORICAL RESULTS AST 32 11 - 47 Units/L HISTORICAL RESULTS ALT 69(H) 7 - 53 Units/L HISTORICAL RESULTS Plasma 12/14/2013 1:19 PM ART DEPARTMENT HEAD Josué Del Valle MD PhD LAB BLOOD ORDERABLES Fin al Result Performing Organization Address [facility] de Phone Number HISTORICAL RESULTS * (ABNORMAL) Serum lactate dehydrogenase (LDH) (12/14/2013 1:19 PM ART DEPARTMENT HEAD) Lactate dehydrogenase (LDH) 328(H) 100 - 250 Units/L HISTORICAL RESULTS Serum 12/14/2013 1:19 PM ART DEPARTMENT HEAD Josué Del Valle MD PhD LAB BLOOD ORDERABLES Fin al Result Performing Organization Address [facility]/ZIP [place] de Phone Number HISTORICAL RESULTS * (ABNORMAL) Plasma prothrombin time (PT) (12/14/2013 1:19 PM ART DEPARTMENT HEAD) Prothrombin time (PT) 9.3 9.0 - 12.0 seconds HISTORICAL RESULTS INR 0.89(L) 0.90 - 1.20 HISTORIC AL RESULTS Comment: Interpretive Data Inpatient therapeutic ranges* Atrial fibrillation ?2.0-3.0 INR Venous thrombo-embolism ?2.0-3.0 INR Bioprosthetic heart valve ?* Mechanical heart valve, bileaflet or tilting disk,aortic position ? 2.0-3.0 INR All other,or bileaflet or tilting disk, in mitral position ? 2.5-3.5 INR *See the pharmacy resource directory (PHRED) for an updated copy of the Tool Book at [email or web address] Current Interpretive Data was last revised 2012. Plasma 12/14/2013 1:19 PM ART DEPARTMENT HEAD Josué Del Valle MD PhD LAB BLOOD ORDERABLES Fin al Result HISTORICAL RESULTS * (ABNORMAL) Blood cell count [CBC] panel, 7 CAM (12/14/2013 1:19 PM ART DEPARTMENT HEAD) WBC 15.7(H) 3.8 - 9.8 K/cumm HISTORICAL RESULTS RBC 4.29(L) 4.50 - 5.70 M/cumm HISTORICAL RESULTS Hgb 15.2 13.8 - 17.2 g/dl HISTORICAL RESULTS Hct 47.1 40.7 - 50.3 % HISTORICAL RESULTS MCV 109.8(H) 80.0 - 97.6 fl HISTORICAL RESULTS MCH 35.4(H) 26.7 - 33.7 pg HISTORICAL RESULTS MCHC 32.2(L) 32.7 - 35.5 g/dl HISTORICAL RESULTS Rdw 14.2 11.8 - 14.6 SD HISTORICAL RESULTS Platelets 265 140 - 440 K/cumm HISTORICAL RESULTS MPV 7.9 6.8 - 10.4 fl HISTORICAL RESULTS Neutrophils 91.6(H) 38.7 - 74.5 % HISTORICAL RESULTS Lymphocytes 5.8(L) 20.0 - 54.3 % HISTORICAL RESULTS Monos 2.2(L) 4.3 - 13.5 % HISTORICAL RESULTS Eosinophils 0.1 0.0 - 6.0 % HISTORICAL RESULTS Basophils 0.3 0.0 - 3.0 % HISTORICAL RESULTS Neutrophils, abs 14.4(H) 1.8 - 6.6 K/cumm HISTORICAL RESULTS Lymphocytes, abs 0.9(L) 1.2 - 3.3 K/cumm HISTORICAL RESULTS Monocytes, absolute 0.3 0.2 - 1.2 K/cumm HISTORICAL RESULTS Eosinophils, abs 0.0 0.0 - 0.5 K/cumm HISTORICAL RESULTS Basophils, abs 0.0 0.0 - 0.2 K/cumm HISTORICAL RESULTS Blood specimen (specimen) 12/14/2013 1:19 PM ART DEPARTMENT HEAD us Josué Del Valle MD PhD LAB BLOOD ORDERABLES Fin al Result HISTORICAL RESULTS documented in this encounter Visit Diagnoses Diagnosis Other chronic pain Other thalassemia (CMS/HCC) (HCC) Other thalassemia documented in this encounter 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
--- OUTSIDE RECORDS SUMMARY | 2024-11-22 11:11 | XMS_ITS | Encounter Summary ---
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) Social History Tobacco Use Types Packs/Day Years Used Date Smoking Tobacco: Never Assessed Sex and Gender Information Value Date Recorded Sex Assigned at Not on file Legal Sex 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 Gender Identity Not on file Sexual [...] Procedure Name Priority Date/Time Associated Diagnosis Comments PLASMA COMPREHENSIVE METABOLIC PANEL Routine 12/14/2016 1:55 PM LABORATORY MACHINIST BLOOD HEMOGLOBIN A1C Routine 12/14/2016 7:55 AM LABORATORY MACHINIST BLOOD CELL COUNT Routine 10/31/2016 9:23 AM LABORATORY MACHINIST SERUM LACTATE DEHYDROGENASE (LDH) Routine 10/31/2016 9:15 AM LABORATORY MACHINIST SERUM IRON PROFILE Routine 10/31/2016 9: 15 AM LABORATORY MACHINIST SERUM FERRITIN Routine 10/31/2016 9:15 AM LABORATORY MACHINIST PLASMA COMPREHENSIVE METABOLIC PANEL Routine 10/31/2016 9:15 AM LABORATORY MACHINIST SERUM 25-HYDROXYCHOLECALCIFE ROL (VITAMIN D) Routine 10/31/2016 9:13 AM LABORATORY MACHINIST BLOOD HEMOGLOBIN A1C Routine 10/31/2016 9:13 AM LABORATORY MACHINIST DISCHARGE LABORATORY CUMULATIVE REPORT 09/05/2016 documented in this encounter Results * (ABNORMAL) Plasma comprehensive metabolic panel (12/14/2016 1:55 PM LABORATORY MACHINIST) Sodium 139 135 - 145 mmol/L CDR HISTORICAL RESULTS K, pl 4.3 3.3 - 4.9 mmol/L CDR HISTORICAL RESULTS CO2 33(H) 22 - 32 mmol/L CDR HISTORICAL RESULTS BUN 15 8 - 25 mg/dl CDR HISTORICAL RESULTS Glucose 169 70 - 199 mg/dl CDR HISTORICAL RESULTS Creatinine 0.93 0.70 - 1.30 mg/dl CDR HISTORICAL RESULTS Calcium 9.6 8.5 - 10.3 mg/dl CDR HISTORICAL RESULTS Chloride 98 97 - 110 mmol/L CDR HISTORICAL RESULTS Alb 3.9 3.5 - 5.0 g/dl CDR HISTORICAL RESULTS AST 115(H) 10 - 50 Units/L CDR HISTORICAL RESULTS ALT 92(H) 7 - 55 Units/L CDR HISTORICAL RESULTS Alk phos 315(H) 40 - 130 Units/L CDR HISTORICAL RESULTS Bilirubin 0.4 0.1 - 1.2 mg/dl CDR HISTORICAL RESULTS Protein, pl 7.2 6.5 - 8.5 g/dl CDR HISTORICAL RESULTS A. gap 8 2 - 15 mmol/L CDR HISTORICAL RESULTS Plasma 12/14/2016 1:55 PM LABORATORY MACHINIST Eneida Gibson MD LAB BLOOD ORDERABLES Final Resul t CDR HISTORICAL RESULTS * (ABNORMAL) Blood hemoglobin A1C (12/14/2016 7:55 AM LABORATORY MACHINIST) Hgb A1C 7.3(H) 4.0 - 6.0 % CDR HISTORICAL RESULTS Estimated average glucose 163 mg/dl CDR HISTORIC AL RESULTS Comment: The ADA recommends reporting an estimated Average Glucose (eAG) with all Hemoglobin A1c results using the equation derived from a study of 507 normal and diabetic adults. ??Minority populations were underrepresented and children were not included. ??(Diabetes Care 31:5584-5193, 2008). ??The eAG is not equivalent to a fasting glucose. Blood specimen (specimen) 12/14/2016 7:55 AM LABORATORY MACHINIST Narrative CDR HISTORICAL RESULTS - 12/18/2016 4:12 AM LABORATORY MACHINIST Comment Deleted us Eneida Gibson MD LAB BLOOD ORDERABLES Final Resul t CDR HISTORICAL RESULTS * (ABNORMAL) Blood cell count [CBC] panel, 7 CAM (10/31/2016 9:23 AM LABORATORY MACHINIST) Pathologist [facility] WBC 13.6(H) 3.8 - 9.8 K/cumm CDR HISTORICAL RESULTS RBC 4.53 4.50 - 5.70 M/cumm CDR HISTORICAL RESULTS Hgb 16.5 13.8 - 17.2 g/dl CDR HISTORICAL RESULTS Hct 49.1 40.7 - 50.3 % CDR HISTORICAL RESULTS MCV 108.4(H) 80.0 - 97.6 fl CDR HISTORICAL RESULTS MCH 36.3(H) 26.7 - 33.7 pg CDR HISTORICAL RESULTS MCHC 33.5 32.7 - 35.5 g/dl CDR HISTORICAL RESULTS Rdw 13.1 11.8 - 14.6 % CDR HISTORICAL RESULTS Platelets 263 140 - 440 K/cumm CDR HISTORICAL RESULTS MPV 7.9 6.8 - 10.4 fl CDR HISTORICAL RESULTS Neutrophils 65.2 38.7 - 74.5 % CDR HISTORICAL RESULTS Lymphocytes 24.5 20.0 - 54.3 % CDR HISTORICAL RESULTS Monos 8.6 4.3 - 13.5 % CDR HISTORICAL RESULTS Eosinophils 1.1 0.0 - 6.0 % CDR HISTORICAL RESULTS Basophils 0.6 0.0 - 3.0 % CDR HISTORICAL RESULTS Neutrophils, abs 8.8(H) 1.8 - 6.6 K/cumm CDR HISTORICAL RESULTS Lymphocytes, abs 3.3 1.2 - 3.3 K/cumm CDR HISTORICAL RESULTS Monocytes, absolute 1.2 0.2 - 1.2 K/cumm CDR HISTORICAL RESULTS Eosinophils, abs 0.2 0.0 - 0.5 K/cumm CDR HISTORICAL RESULTS Basophils, abs 0.1 0.0 - 0.2 K/cumm CDR HISTORICAL RESULTS Blood specimen (specimen) 10/31/2016 9:23 AM LABORATORY MACHINIST Josué Del Valle MD PhD LAB BLOOD ORDERABLES Fin al Result CDR HISTORICAL RESULTS * Serum iron profile (10/31/2016 9:15 AM LABORATORY MACHINIST) Iron 122 50 - 150 mcg/dl CDR HISTORICAL RESULTS Comment:{Hemolyzed; result m ay be falsely elevated.} UIBC See Comment 112 - 347 mcg/dl CDR HISTORICAL RESULTS Comment:{CRDT; Hemolyzed Spe cimen} TIBC See Comment 250 - 400 mcg/dl CDR HISTORICAL RESULTS Comment:{CRDT; Hemolyzed Spe cimen} Transferrin saturation See Comment 20 - 50 % CDR HISTORICAL RESULTS Comment:{CRDT; Hemolyzed Spe cimen} Serum 10/31/2016 9:15 AM LABORATORY MACHINIST Josué Del Valle MD PhD LAB BLOOD ORDERABLES Fin al Result Performing Organization Address [facility] Co de Phone Number CDR HISTORICAL RESULTS * Plasma comprehensive metabolic panel (10/31/2016 9:15 AM LABORATORY MACHINIST) Pathologist [facility] Sodium 142 135 - 145 mmol/L CDR HISTORICAL RESULTS K, pl 4.4 3.3 - 4.9 mmol/L CDR HISTORICAL RESULTS CO2 31 22 - 32 mmol/L CDR HISTORICAL RESULTS BUN 18 8 - 25 mg/dl CDR HISTORICAL RESULTS Glucose 131 70 - 199 mg/dl CDR HISTORICAL RESULTS Creatinine 0.83 0.70 - 1.30 mg/dl CDR HISTORICAL RESULTS Calcium 9.5 8.5 - 10.3 mg/dl CDR HISTORICAL RESULTS Chloride 104 97 - 110 mmol/L CDR HISTORICAL RESULTS Alb 4.1 3.5 - 5.0 g/dl CDR HISTORICAL RESULTS AST 26 10 - 50 Units/L CDR HISTORICAL RESULTS ALT 23 7 - 55 Units/L CDR HISTORICAL RESULTS Alk phos 87 40 - 130 Units/L CDR HISTORICAL RESULTS Bilirubin 0.3 0.1 - 1.2 mg/dl CDR HISTORICAL RESULTS Protein, pl 7.0 6.5 - 8.5 g/dl CDR HISTORICAL RESULTS A. gap 7 2 - 15 mmol/L CDR HISTORICAL RESULTS Plasma 10/31/2016 9:15 AM LABORATORY MACHINIST Josué Del Valle MD PhD LAB BLOOD ORDERABLES Fin al Result Performing Organization Address [facility]/ZIP Co de Phone Number CDR HISTORICAL RESULTS * (ABNORMAL) Serum lactate dehydrogenase (LDH) (10/31/2016 9:15 AM LABORATORY MACHINIST) Lactate dehydrogenase (LDH) 257(H) 100 - 250 Units/L CDR HISTORICAL RESULTS Serum 10/31/2016 9:15 AM LABORATORY MACHINIST Result [facility] us Josué Del Valle MD PhD LAB BLOOD ORDERABLES Fin al Result Performing Organization Address [facility] de Phone Number CDR HISTORICAL RESULTS * (ABNORMAL) Serum ferritin (10/31/2016 9:15 AM LABORATORY MACHINIST) Pathologist [facility] Ferritin 686(H) 30 - 400 ng/ml CDR HISTORICAL RESULTS Serum 10/31/2016 9:15 AM LABORATORY MACHINIST Result [facility] us Josué Del Valle MD PhD LAB BLOOD ORDERABLES Fin al Result Performing Organization Address [facility] de Phone Number CDR HISTORICAL RESULTS * (ABNORMAL) Serum 25-hydroxycholecalciferol (vitamin D) (10/31/2016 9:13 AM LABORATORY MACHINIST) Pathologist [facility] 25-OH Vit D 21(L) 30 - 100 ng/ml CDR HISTORICAL RESULTS Serum 10/31/2016 9:13 AM LABORATORY MACHINIST Result [facility] us Josué Del Valle MD PhD LAB BLOOD ORDERABLES Fin al Result Performing Organization Address [facility] de Phone Number CDR HISTORICAL RESULTS * (ABNORMAL) Blood hemoglobin A1C (10/31/2016 9:13 AM LABORATORY MACHINIST) Hgb A1C 9.1(H) 4.0 - 6.0 % CDR HISTORICAL RESULTS Estimated average glucose 214 mg/dl CDR HISTORIC AL RESULTS Comment: The ADA recommends reporting an estimated Average Glucose (eAG) with all Hemoglobin A1c results using the equation derived from a study of 507 normal and diabetic adults. ??Minority populations were underrepresented and children were not included. ??(Diabetes Care 31:2822-5304, 2008). ??The eAG is not equivalent to a fasting glucose. Blood specimen (specimen) 10/31/2016 9:13 AM LABORATORY MACHINIST us Josué Del Valle MD PhD LAB BLOOD ORDERABLES Fin al Result CDR HISTORICAL RESULTS * DISCHARGE LABORATORY CUMULATIVE REPORT (09/05/2016) Narrative 09/05/2016 Ordered by an unspecified provider. 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
--- OUTSIDE RECORDS SUMMARY | 2024-11-22 11:11 | XMS_ITS | Encounter Summary ---
Author Organization [facility] Facility Care Team Providers Care Exceptional Needs Teacher Name Role Phone Unavailable Primary Care Provider Unavailabl e Encounter Details Date Type Department Care Team (Late st Contact Info) Description 03/20/2013 - 03/20/2013 11:59 PM CDT Hospital Encounter [facility] Josué Armenta MD PhD [address] [employer], [address] [place] [address] Calculus of gallbladder; Personal history of myeloid leukemia; Acute myeloid leukemia (HCC) Social History Tobacco Use Types Packs/Day Years Used Date Smoking Tobacco: Never Assessed Sex and Gender Information Value Date Recorded Sex Assigned at Not on file Legal Sex 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 11/03/2012 06/24/2018 documented as of this encounter Plan of Treatment Not on file documented as of this encounter Procedures Procedure Name Priority Date/Time Associated Diagnosis Comments US ABDOMEN COMPLETE Routine 03/20/2013 1 2:43 PM CDT documented in this encounter Results * US Abdomen Complete (03/20/2013 12:43 PM CDT) Anatomical Region Laterality Modality Abdomen N/A Ultrasound 03/20/2013 12:4 3 PM CDT Narrative 03/20/2013 12:57 PM CDT SELENA HERRERA M.D. FINAL REPORT ACC# ??Date Time ??Exam [id number] March 20, 2013 12:43:00 [id number] Sono Abd Complt EXAMINATION: ?? COMPLETE ABDOMINAL SONOGRAM HISTORY: ??47-year-old male with history of acute myelogenous leukemia and acute pancreatitis here for evaluation of gallstones. FINDINGS: The gallbladder is normal in size. There are a few small mobile stones within the gallbladder. There is no gallbladder wall thickening, pericholecystic fluid, or sonographic Arredondo sign. ?? The liver is normal in size, echotexture, ??and echogenicity and there are no focal lesions or intrahepatic duct dilatation. ??There is no surface nodularity. ??The common duct is normal and measures 3 mm and 3 mm in the proximal and mid aspects respectively. The distal duct is not well seen due to overlying bowel gas. ??There is no hydronephrosis in the visualized portions of the kidneys. The visualized portions of the head/body of the pancreas are normal. The spleen is normal in size. The proximal IVC and aorta are normal. Of incidental note is a 2.1 x 2.6 x 2.7 cm fluid collection within the left upper quadrant, likely sequelae of prior pancreatitis. IMPRESSION: ?? 1. ??Cholelithiasis without sonographic evidence of acute cholecystitis. 2. ??Small left upper quadrant fluid collection most consistent with sequelae of prior pancreatitis. Requested By: Josué Del Valle ??Toño Dictated By: ?? SELENA HERRERA M.D. ??on March?2012 12:57P This document has been electronically signed by: SELENA HERRERA M.D. on March 12:57P Procedure Note Provider, MD Shmuel - 03/22/2017 SELENA HERRERA M.D. FINAL REPORT ACC# Date Time Exam [id number] March 20, 2013 12:43:00 [id number] Sono Abd Complt EXAMINATION: COMPLETE ABDOMINAL SONOGRAM HISTORY: 47-year-old male with history of acute myelogenous leukemia and acute pancreatitis here for evaluation of gallstones. FINDINGS: The gallbladder is normal in size. There are a few small mobile stones within the gallbladder. There is no gallbladder wall thickening, pericholecystic fluid, or sonographic Arrdeondo sign. The liver is normal in size, echotexture, and echogenicity and there are no focal lesions or intrahepatic duct dilatation. There is no surface nodularity. The common duct is normal and measures 3 mm and 3 mm in the proximal and mid aspects respectively. The distal duct is not well seen due to overlying bowel gas. There is no hydronephrosis in the visualized portions of the kidneys. The visualized portions of the head/body of the pancreas are normal. The spleen is normal in size. The proximal IVC and aorta are normal. Of incidental note is a 2.1 x 2.6 x 2.7 cm fluid collection within the left upper quadrant, likely sequelae of prior pancreatitis. IMPRESSION: 1. Cholelithiasis without sonographic evidence of acute cholecystitis. 2. Small left upper quadrant fluid collection most consistent with sequelae of prior pancreatitis. Requested By: Josué Del Valle M.D. Dictated By: SELENA HERRERA M.D. on Mar 20 2013 12:57P This document has been electronically signed by: SELENA HERRERA M.D. on Mar 20 2013 12:57P us Historical Provider MD TAPIA US PROCEDURES Final R esult documented in this encounter Visit Diagnoses Diagnosis Calculus of gallbladder Calculus of gallbladder without mention of cholecystitis or obstruction Personal history of myeloid leukemia Acute myeloid leukemia (HCC) Acute myeloid leukemia, without mention of having achieved remission documented in this encounter 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
--- OUTSIDE RECORDS SUMMARY | 2024-11-22 11:11 | XMS_ITS | Encounter Summary ---
Author Organization [facility] Facility Care Team Providers Care Iron Pellet Tester Name Role Phone Unavailable Primary Care Provider Unavailabl e Encounter Details Date Type Department Care Team (Late st Contact Info) Description 04/03/[address] 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 [facility] ? Department of Laboratories ?[facility] [address] ?BJ ?Outpatient ?Physician Patient Name: ? BRI JONES Rec Number: ?? [id number] Date of : ?1965 Gender/Age: ? Male 47 years Doctor: ? Leandra Jackson Report Date/Time: 04/06/2013 17:08 ?* Abnormal ??C Critical ??f Footnote ??^ Corrected ??L Low ??H High ?i Interp Data ??@ Reference Lab ?Chart Type: Cumulative ? VIROLOGY ? PROCEDURE: Respiratory Pathogen Multiplex PCR ?SOURCE: Nasopharyngeal COLLECTED: 04/03/13 ??1845 ? BODY SITE: STARTED: 04/03/13 ??192 FREE TEXT SOURCE: FINAL REPORT REPORTED: 04/03/132044 Respiratory Pathogen nucleic acids DETECTED (POSITIVE) for the following: Rhinovirus/Enterovirus ORDER COMMENTS (1)Testing performed by: [place]. [address]. ? VIROLOGY ? PROCEDURE: Respiratory Pathogen Multiplex PCR ?SOURCE: Nasopharyngeal COLLECTED: 04/03/13 ??1845 ? BODY SITE: STARTED: 04/03/13 ??1922 FREE TEXT SOURCE: * * * ??Interpretive Results ??* * * (1)The [employer] (formerly known as [employer]) FilmArray Respiratory Panel (RP) assay is a multiplexed nucleic acid test capable of simultaneous qualitative detection and identification of multiple respiratory viral and bacterial nucleic acids. ??The following bacteria, viruses and virus subtypes can be identified using the FilmArray RP assay: Bordetella pertussis, Chlamydophila pneumoniae, Mycoplasma pneumoniae, Adenovirus, Coronavirus HKU1, Coronavirus NL63, Coronavirus 229E, Coronavirus OC43, Influenza A, Influenza A subtype H1, Influenza A subtype H3, Influenza A subtype 2009 H1, Influenza B, Metapneumovirus, Parainfluenza 1, Parainfluenza 2, Parainfluenza 3, Parainfluenza 4, RSV, Rhinovirus/Enterovirus. Due to the genetic similarity between human Rhinovirus and Enterovirus, the FilmArray RP assay cannot reliably differentiate them. The FilmArray RP assay currently detects Adenovirus species C serotypes 2 and 6 with reduced sensitivity. If there is clinical suspicion for Adenovirus infection, consider ordering Adenovirus PCR which can be performed on the same sample that was submitted for the multiplex PCR. Coronavirus OC43 may cross-react with some isolates of Coronavirus HKU1. ??A dual positive result may be due to cross-reactivity or may indicate a co-infection.The detection and identification of specific viral and [...] evaluating a patient with possible respiratory tract infection.The FilmArray RP assay is FDA cleared for NURSING PROGRAM MANAGER swabs. ??Additional sample types have been validated according to CLIA regulations. ??The performance characteristics of this assay have been determined by [facility].Current interpretive data was last revised on 2012. us Historical Provider LAB BLOOD ORDERABLES Pilar pawel Result HISTORICAL RESULTS * Respiratory Pathogen Multiplex PCR (04/03/2013 6:45 PM CDT) Nasopharyngeal (Unknown) 04/03/2013 6:45 PM CDT 04/03/2013 7:23 PM CDT Impressions HISTORICAL RESULTS - 04/03/2013 8:45 PM CDT The [employer] (formerly known as [employer] FilmArray Respiratory Panel (RP) assay is a multiplexed nucleic acid test capable of simultaneous qualitative detection and identification of multiple respiratory viral and bacterial nucleic acids. ??The following bacteria, viruses and virus subtypes can be identified using the FilmArray RP assay: Bordetella pertussis, Chlamydophila pneumoniae, Mycoplasma pneumoniae, Adenovirus, Coronavirus HKU1, Coronavirus NL63, Coronavirus 229E, Coronavirus OC43, Influenza A, Influenza A subtype H1, Influenza A subtype H3, Influenza A subtype 2009 H1, Influenza B, Metapneumovirus, Parainfluenza 1, Parainfluenza 2, Parainfluenza 3, Parainfluenza 4, RSV, Rhinovirus/Enterovirus. Due to the genetic similarity between human Rhinovirus and Enterovirus, the FilmArray RP assay cannot reliably differentiate them. The FilmArray RP assay currently detects Adenovirus species C serotypes 2 and 6 with reduced sensitivity. ??If there is clinical suspicion for Adenovirus infection, consider ordering Adenovirus PCR which can be performed on the same sample that was submitted for the multiplex PCR. Coronavirus OC43 may cross-react with some isolates [...] FilmArray RP assay is FDA cleared for NURSING PROGRAM MANAGER swabs. ??Additional sample types have been validated according to CLIA regulations. ??The performance characteristics of this assay have been determined by [facility]. Current interpretive data was last revised on 2012. Narrative HISTORICAL RESULTS - 04/03/2013 8:45 PM CDT Respiratory Pathogen nucleic acids DETECTED (POSITIVE) for the following: Rhinovirus/Enterovirus us Historical Provider LAB MICROBIOLOGY - GENERA L ORDERABLES Final Result HISTORICAL RESULTS * XR Chest Pa Lateral 2 Views (04/03/2013 2:54 PM CDT) Anatomical Region Laterality Modality Body, Chest N/A Radiographic Tiffany ging 04/03/2013 2:54 PM CDT Narrative 04/03/2013 5:01 PM CDT ALEM VELA M.D. RAEGAN MANRIQUE, FINAL REPORT The radiology attending physician has personally reviewed this study, and has reviewed and/or edited this written report and agrees with it. ACC# ??Date Time ??Exam [id number] April 03, 2013 14:54:00 [id number] Chest 2 views Frontl & Lat EXAMINATION: ?? CHEST 2 VIEWS ?? IMPRESSION: ?? PA and lateral views of the chest are compared to prior study dated 02/07/2013. There is persistent partial right middle lobe collapse, not changed since at least 11/03/2012. The lungs are otherwise clear, and there is no pleural effusion or pneumothorax. The cardiomediastinal silhouette is normal. ?? Requested By: NARCISA VASQUEZ Dictated By: ?? RAEGAN MANRIQUE, ?? on Apr 03 2013 ??4:26P This document has been electronically signed by: ALEM VELA M.D. on Apr 03 2013 ??5:01P Procedure Note Provider, Shmuel, - 04/25/2017 ALEM VELA M.D. RAEGAN MANRIQUE, FINAL REPORT The radiology attending physician has personally reviewed this study, and has reviewed and/or edited this written report and agrees with it. ACC# Date Time Exam [id number] April 03, 2013 14:54:00 [id number] Chest 2 views Frontl & Lat EXAMINATION: CHEST 2 VIEWS IMPRESSION: PA and lateral views of the chest are compared to prior study dated 02/07/2013. There is persistent partial right middle lobe collapse, not changed since at least 11/03/2012. The lungs are otherwise clear, and there is no pleural effusion or pneumothorax. The cardiomediastinal silhouette is normal. Requested By: NARCISA VASQUEZ Dictated By: RAEGAN MANRIQUE, on Apr 03 2013 4:26P This document has been electronically signed by: ALEM VELA M.D. on Apr 03 2013 5:01P us Historical Provider IMG XR PROCEDURES Final R esult * All Microbiology Report Section (04/03/2013 12:00 AM CDT) 04/03/2013 Narrative HISTORICAL RESULTS - 04/03/2013 9:26 PM CDT ? [facility] ?[facility] ?[place], [place] [address] ? Patient Name: ??BRI JONES ? Med Rec Number: [id number] ? Fin Number: ?[id number] ? Date: ?1965 ? Sex/Age: ? Male 47 years ? Admit Date: ?04/03/2013 ? Discharge Date: 04/03/2013 ? Doctor: ?Jame , Narcisa L ? Facility: ?[facility] ? Location: ?[facility] ?* Abnormal ??A Alert ??f Footnote ??^ Corrected ??L Low ??H High ?i Interp Data ??@ Ref Lab ? Chart Type:Cumulative ?* * * * MICROBIOLOGY - MOLECULAR TESTING * * * * ?PROCEDURE: Respiratory Pathogen Multiplex PCR ? SOURCE: Nasopharyngeal ? COLLECTED: 05/17/13 ??1845 ?BODY SITE: ? STARTED: 05/17/13 ??1923 ? FREE TEXT SOURCE: ? FINAL REPORT ? REPORTED: 04/03/132044 ? Respiratory Pathogen nucleic acids DETECTED (POSITIVE) for the ? following: ? Rhinovirus/Enterovirus ? ORDER COMMENTS ? (1)Testing performed by: [facility], ? [place]. [address]. ?* * * ??Interpretive Results ??* * * ? (1)The [employer] (formerly known [employer] ? FilmArray Respiratory Panel (RP) assay is a multiplexed nucleic ? acid test capable of simultaneous qualitative detection and ? identification of multiple respiratory viral and bacterial ? nucleic acids. ??The following bacteria, viruses and virus ? subtypes can be identified using the FilmArray RP assay: ? Bordetella pertussis, Chlamydophila pneumoniae, Mycoplasma ? pneumoniae, Adenovirus, Coronavirus HKU1, Coronavirus NL63, ? Coronavirus 229E, Coronavirus OC43, Influenza A, Influenza A ? subtype H1, Influenza A subtype H3, Influenza A subtype 2009 H1, ? Influenza B, Metapneumovirus, Parainfluenza 1, Parainfluenza 2, ? Parainfluenza 3, Parainfluenza 4, RSV, Rhinovirus/Enterovirus. ? Due to the genetic similarity between human Rhinovirus and ? Enterovirus, the FilmArray RP assay cannot reliably ? differentiate them. The FilmArray RP assay currently detects ? Adenovirus species C serotypes 2 and 6 with reduced sensitivity. ? If there is clinical suspicion for Adenovirus infection, ? consider ordering Adenovirus PCR which can be performed on the ? same sample that was submitted for the multiplex PCR. ? Coronavirus OC43 may cross-react with some isolates of ? Coronavirus HKU1. ??A dual positive result may be due to ? cross-reactivity or may indicate a co-infection.The detection ? and identification of specific viral and bacterial nucleic acids ? from individuals exhibiting signs and symptoms of a respiratory ? infection aids in the diagnosis of respiratory infection if used ? in conjunction with other clinical and epidemiological ? information. ??The results of this test should not be used as the ? sole basis for diagnosis, treatment, or other management ? decisions. ??Negative results in the setting of a respiratory ? illness may be due to infection with pathogens that are not ? detected by this test. ??Positive results do not rule out ? infection/co-infection with other organisms. ??The agent(s) ? detected by the FilmArray RP may not be the definite cause of ? disease. ??Additional testing (lab, imaging, etc) may be ? necessary when evaluating a patient with possible respiratory ? tract infection.The FilmArray RP assay is FDA cleared for NURSING PROGRAM MANAGER ? swabs. ??Additional sample types have been validated according to ? CLIA regulations. ??The performance characteristics of this assay ? have been determined by [facility] ? [facility].Current interpretive data was last revised on 2012. ? us Historical Provider LAB MICROBIOLOGY - GENERA L ORDERABLES Final Result HISTORICAL RESULTS documented in this encounter Visit Diagnoses Diagnosis Disease of respiratory system Unspecified disease of respiratory system Pulmonary collapse Acute myeloid leukemia (HCC) Acute myeloid leukemia, without mention of having achieved remission documented in this encounter 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
--- OUTSIDE RECORDS SUMMARY | 2024-11-22 11:11 | XMS_ITS | Encounter Summary ---
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 Historical Provider MD PFT ORDERABLES Final Res ult documented in this encounter Visit Diagnoses Not on filedocumented in this encounter 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
--- OUTSIDE RECORDS SUMMARY | 2024-11-22 11:11 | XMS_ITS | Encounter Summary ---
Author Organization 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 Gender Identity Not on file Sexual Orientation Not on file documented as of this encounter Plan of Treatment Not on file documented as of this encounter Procedures Procedure Name Priority Date/Time Associated Diagnosis Comments CBC WITH AUTO DIFFERENTIAL Routine Gen Lab 02/04/2017 8:26 AM CDT documented in this encounter Results * (ABNORMAL) CBC with auto differential (02/04/2017 8:26 AM CDT) Pathologist [facility] WBC 8.0 3.8 - 9.8 K/cumm [facility] RBC 4.58 4.50 - 5.70 M/cumm [facility] Hgb 16.1 13.8 - 17.2 g/dL [facility] Hct 47.9 40.7 - 50.3 % [facility] Mean Cellular Volume - CAM 104.4(H) 80.0 - 97.6 fL [facility] Mean Cellular Hemoglobin - CAM 35.2(H) 26.7 - 33.7 pg [facility] Mean Cellular Hemoglobin Concentration - CAM 33.7 32.7 - 35.5 g/dL [facility] Rdw 14.7(H) 11.8 - 14.6 % [facility] Plt 265 140 - 440 K/cumm [facility] Mean Platelet Volume - CAM 7.8 6.8 - 10.4 fL [facility] Neutrophil pct 48.1 38.7 - 74.5 % [facility] Lymphocyte pct 32.7 20.0 - 54.3 % [facility] Monos 10.1 4.3 - 13.5 % [facility] Eosinophil pct 7.8(H) 0.0 - 6.0 % [facility] Basophil pct 1.3 0.0 - 3.0 % [facility] Neutrophil abs 3.9 1.8 - 6.6 K/cumm [facility] Lymphocyte abs 2.6 1.2 - 3.3 K/cumm [facility] Monocyte abs 0.8 0.2 - 1.2 K/cumm [facility] Eosinophils, abs 0.6(H) 0.0 - 0.5 K/cumm [facility] Basophil abs 0.1 0.0 - 0.2 K/cumm [facility] Blood specimen (specimen) 02/04/2017 8:26 AM CDT 02/04/2017 8:30 AM CDT us Josué Del Valle MD PhD LAB BLOOD ORDERABLES Fin al Result [facility] [place] [facility] Department [place] [address] documented in this encounter Visit Diagnoses Not on filedocumented in this encounter 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
--- OUTSIDE RECORDS SUMMARY | 2024-11-22 11:11 | XMS_ITS | Encounter Summary ---
Author Organization [facility] Facility Care Team Providers Care Home School Teacher Name Role Phone Unavailable Primary Care Provider Unavailabl e Encounter Details Date Type Department Care Team (Late st Contact Info) Description 09/19/2016 3:09 PM CDT - 09/19/2016 11:59 PM CDT Hospital Encounter [facility] Christopher Armenta MD PhD [address] DIV BONE MARROW TRANSPLANT, [address] [place] [address] Pain in right knee; Pain in left shoulder Social History Tobacco Use Types Packs/Day Years Used Date Smoking Tobacco: Never Assessed Sex and Gender Information Value Date Recorded Sex Assigned at Not on file 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 FINAL REPORT ACC# ??Date Time ??Exam [id number] Sep 19, 2016 15:37:00 [id number] Shoulder minimum 2 views L EXAMINATION: ?Left shoulder minimum 2 views HISTORY: ??Left shoulder pain FINDINGS: ?? Three views of the left shoulder are performed without comparison. There is normal alignment of the left shoulder. The glenohumeral and acromioclavicular joints are normal. There is no fracture. IMPRESSION: ?? Normal left shoulder radiographs. Requested By: CHRISTOPHER MIR M.D. Dictated By: ?? ILDA MARTI M.D. ??on Sep ??2015 ??3:41P This document has been electronically signed by: ILDA MARTI M.D. on Sep?2015 ??3:41P [id number] Procedure Note Provider, MD Shmuel - 03/26/2017 ILDA MARTI M.D. FINAL REPORT ACC# Date Time Exam [id number] Sep 19, 2016 15:37:00 [id number] Shoulder minimum 2 views L EXAMINATION: Left shoulder minimum 2 views HISTORY: Left shoulder pain FINDINGS: Three views of the left shoulder are performed without comparison. There is normal alignment of the left shoulder. The glenohumeral and acromioclavicular joints are normal. There is no fracture. IMPRESSION: Normal left shoulder radiographs. Requested By: CHRISTOPHER MIR M.D. Dictated By: ILDA MARTI M.D. on Sep 19 2016 3:41P This document has been electronically signed by: ILDA MARTI M.D. on Sep 19 2016 3:41P [id number] Historical Provider IMG XR PROCEDURES Final R esult * KNEE RADIOGRAPHY, FRONTAL (AP), LATERAL, OBLIQUE (09/19/2016 3:37 PM CDT) Anatomical Region Laterality Modality N/A Radiographic Tiffany ging 09/19/2016 3:37 PM CDT Narrative 09/19/2016 3:43 PM CDT ILDA MARTI M.D. FINAL REPORT ACC# ??Date Time ??Exam [id number] Sep 19, 2016 15:37:00 [id number] Knee 3 views R EXAMINATION: ?Right knee 3 views HISTORY: ??Right knee pain FINDINGS: ?? Three views of the right knee are performed without comparison. There is normal alignment of the right knee. The joint spaces are normal. No fracture. No knee joint effusion. IMPRESSION: ?? Normal right knee radiographs. Requested By: CHRISTOPHER MIR M.D. Dictated By: ?? ILDA MARTI M.D. ??on Sep ??2015 ??3:43P This document has been electronically signed by: ILDA MARTI M.D. on Sep ??2015 ??3:43P [id number] Procedure Note Provider, MD Shmuel - 03/26/2017 ILDA MARTI M.D. FINAL REPORT ACC# Date Time Exam [id number] Sep 19, 2016 15:37:00 [id number] Knee 3 views R EXAMINATION: Right knee 3 views HISTORY: Right knee pain FINDINGS: Three views of the right knee are performed without comparison. There is normal alignment of the right knee. The joint spaces are normal. No fracture. No knee joint effusion. IMPRESSION: Normal right knee radiographs. Requested By: CHRISTOPHER MIR M.D. Dictated By: ILDA MARTI M.D. on Sep 19 2016 3:43P This document has been electronically signed by: ILDA MARTI M.D. on Sep 19 2016 3:43P [id number] Historical Provider IMWilder XR PROCEDURES Final R esult documented in this encounter Visit Diagnoses Diagnosis Pain in right knee Pain in left shoulder documented in this encounter 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
--- OUTSIDE RECORDS SUMMARY | 2024-11-22 11:11 | XMS_ITS | Encounter Summary ---
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) Social History Tobacco Use Types Packs/Day Years Used Date Smoking Tobacco: Never Assessed Sex and Gender Information Value Date Recorded Sex Assigned at Not on file Legal Sex Male 10:48 AM [employer] Gender Identity Not on file Sexual Orientation [...] Associated Diagnosis Comments DISCHARGE LABORATORY CUMULATIVE REPORT 11/17/2015 CYTOMEGALOVIRUS (CMV) PCR, CDR Routine 11/07/2015 1:00 PM [employer] SERUM URIC ACID Routine 11/07/2015 1:00 PM [employer] SERUM MAGNESIUM Routine 11/07/2015 1:00 PM [employer] SERUM LACTATE DEHYDROGENASE (LDH) Routine 11/07/2015 1:00 PM [employer] PLASMA COMPREHENSIVE METABOLIC PANEL Routine 11/07/2015 1:00 PM [employer] BLOOD TACROLIMUS (FK-506) DRUG LEVEL Routine 11/07/2015 1:00 PM [employer] BLOOD MORPHOLOGY SCREEN Routine 11/07/20 15 12:56 PM [employer] BLOOD CELL COUNT Routine 11/07/2015 12:5 6 PM [employer] ALL MICROBIOLOGY REPORT SECTION Routine 11/07/2015 12:00 AM [employer] CYTOMEGALOVIRUS (CMV) PCR, CDR Routine 08/23/2015 2:11 PM CDT SERUM URIC ACID Routine 08/23/2015 2:11 PM CDT SERUM MAGNESIUM Routine 08/23/2015 2:11 PM CDT SERUM LACTATE DEHYDROGENASE (LDH) Routine 08/23/2015 2:11 PM CDT PLASMA COMPREHENSIVE METABOLIC PANEL Routine 08/23/2015 2:11 PM CDT BLOOD CELL COUNT Routine 08/23/2015 2:09 PM CDT BLOOD TACROLIMUS (FK-506) DRUG LEVEL Routine 08/23/2015 2:00 PM CDT ALL MICROBIOLOGY REPORT SECTION Routine 08/23/2015 12:00 AM CDT BLOOD CELL COUNT Routine 04/28/2015 2:38 PM CDT BLOOD TACROLIMUS (FK-506) DRUG LEVEL Routine 04/28/2015 2:34 PM CDT PLASMA COMPREHENSIVE METABOLIC PANEL Routine 04/28/2015 2:30 PM CDT BLOOD CELL COUNT Routine 02/01/2015 1:22 PM CDT PLASMA COMPREHENSIVE METABOLIC PANEL Routine 02/01/2015 1:15 PM CDT BLOOD TACROLIMUS (FK-506) DRUG LEVEL Routine 02/01/2015 1:15 PM CDT documented in this encounter Results * DISCHARGE LABORATORY CUMULATIVE REPORT (11/17/2015) Narrative 11/17/2015 Ordered by an unspecified provider. us Historical Provider LAB BLOOD ORDERABLES Pilar l Result * Cytomegalovirus (CMV) PCR (11/07/2015 1:00 PM [employer]) Blood specimen (specimen) (Unknown) 11/07/2015 1:00 PM [employer] 11/07/2015 2:14 PM [employer] Impressions HISTORICAL RESULTS - 11/08/2015 7:22 AM [employer] This assay employs the FDA-cleared Qiagen/KOJI Drinks real-time CMV PCR test kit. The PCR primers amplify a portion of the major immediate early gene of human cytomegalovirus. The assay does not amplify any of the other human herpes viruses or human DNA. ??If CMV DNA is detected, quantitative results will be reported in International Units (IU)/mL of blood as well as the log base 10 transformed value. The benefit of this practice is to improve the comparability of CMV PCR results among different laboratories. The lower limit of detection of the assay is 100 IU/mL. The assay is accurate for quantitation in the range of 870 to 5,800,000 IU/mL or 2.9 to 6.8 log(10) IU/mL. Narrative HISTORICAL RESULTS - 11/08/2015 7:22 AM [employer] CMV DNA NOT DETECTED (NEGATIVE). ??This assay can reliably detect CMV DNA as low as 100 IU/mL. Historical Provider MD LAB MICROBIOLOGY - GENERA L ORDERABLES Final Result Performing Organization Address [facility] Co de Phone Number HISTORICAL RESULTS * Blood tacrolimus (FK-506) drug level (11/07/2015 1:00 PM [employer]) Tacrolimus <1.0 ng/ml HISTORICA L RESULTS Comment: Undetectable. ??Please verify that the correct immunosuppressant test was requested. Interpretive Data This test was developed using an analyte specific reagent. ?? Its performance characteristics were determined by the [facility] in a manner consistent with CLIA requirements. ??This test has not been cleared or approved by the U.S. Food and Drug Administration. Current interpretive data was last revised on 2012. Blood specimen (specimen) 11/07/2015 1:00 PM [employer] Josué Del Valle MD PhD LAB BLOOD ORDERABLES Fin al Result Performing Organization Address [facility] Co de Phone Number HISTORICAL RESULTS * Plasma comprehensive metabolic panel (11/07/2015 1:00 PM [employer]) Sodium 141 135 - 145 mmol/L HISTORICAL RESULTS K, pl 4.8 3.3 - 4.9 mmol/L HISTORICAL RESULTS Chloride 101 97 - 110 mmol/L HISTORICAL RESULTS CO2 30 22 - 32 mmol/L HISTORICAL RESULTS A. gap 10 0 - 16 mmol/L HISTORICAL RESULTS Glucose 105 70 - 199 mg/dl HISTORICAL RESULTS BUN 19 8 - 25 mg/dl HISTORICAL RESULTS Creatinine 1.00 0.70 - 1.30 mg/dl HISTORICAL RESULTS Calcium 10.2 8.6 - 10.3 mg/dl HISTORICAL RESULTS Protein, pl 7.3 6.5 - 8.5 g/dl HISTORICAL RESULTS Alb 4.3 3.6 - 5.0 g/dl HISTORICAL RESULTS Bilirubin 0.4 0.3 - 1.1 mg/dl HISTORICAL RESULTS Alk phos 100 38 - 126 Units/L HISTORICAL RESULTS AST 30 11 - 47 Units/L HISTORICAL RESULTS ALT 53 7 - 53 Units/L HISTORICAL RESULTS Plasma 11/07/2015 1:00 PM [employer] Josué Del Valle MD PhD LAB BLOOD ORDERABLES Fin al Result Performing Organization Address City/[facility] de Phone Number HISTORICAL RESULTS * (ABNORMAL) Serum lactate dehydrogenase (LDH) (11/07/2015 1:00 PM [employer]) Lactate dehydrogenase (LDH) 293(H) 100 - 250 Units/L HISTORICAL RESULTS Serum 11/07/2015 1:00 PM [employer] Josué Del Valle MD PhD LAB BLOOD ORDERABLES Fin al Result Performing Organization Address City/[facility] Co de Phone Number HISTORICAL RESULTS * Serum uric acid (11/07/2015 1:00 PM [employer]) Uric acid 4.4 3.0 - 8.0 mg/dl HISTORICAL RESULTS Serum 11/07/2015 1:00 PM [employer] Josué Del Valle MD PhD LAB BLOOD ORDERABLES Fin al Result Performing Organization Address [facility] Co de Phone Number HISTORICAL RESULTS * Serum magnesium (11/07/2015 1:00 PM [employer]) Magnesium 2.0 1.4 - 2.5 mg/dl HISTORICAL RESULTS Serum 11/07/2015 1:00 PM [employer] Josué Del Valle MD PhD LAB BLOOD ORDERABLES Fin al Result Performing Organization Address [facility] Co de Phone Number HISTORICAL RESULTS * Blood morphology screen (11/07/2015 12:56 PM [employer]) Morphology scrn Original results obtained required verification by peripheral smear HISTORICAL RESULTS Blood specimen (specimen) 11/07/2015 12:56 PM [employer] Josué Del Valle MD PhD LAB BLOOD ORDERABLES Fin al Result Performing Organization Address [facility] de Phone Number HISTORICAL RESULTS * (ABNORMAL) Blood cell count [CBC] panel, 7 CAM (11/07/2015 12:56 PM [employer]) WBC 16.4(H) 3.8 - 9.8 K/cumm HISTORICAL RESULTS RBC 4.76 4.50 - 5.70 M/cumm HISTORICAL RESULTS Hgb 16.6 13.8 - 17.2 g/dl HISTORICAL RESULTS Hct 50.1 40.7 - 50.3 % HISTORICAL RESULTS MCV 105.2(H) 80.0 - 97.6 fl HISTORICAL RESULTS MCH 34.8(H) 26.7 - 33.7 pg HISTORICAL RESULTS MCHC 33.1 32.7 - 35.5 g/dl HISTORICAL RESULTS Rdw 13.8 11.8 - 14.6 % HISTORICAL RESULTS Platelets 191 140 - 440 K/cumm HISTORICAL RESULTS MPV 7.8 6.8 - 10.4 fl HISTORICAL RESULTS Neutrophils 74.4 38.7 - 74.5 % HISTORICAL RESULTS Lymphocytes 18.3(L) 20.0 - 54.3 % HISTORICAL RESULTS Monos 5.9 4.3 - 13.5 % HISTORICAL RESULTS Eosinophils 0.5 0.0 - 6.0 % HISTORICAL RESULTS Basophils 0.9 0.0 - 3.0 % HISTORICAL RESULTS Neutrophils, abs 12.2(H) 1.8 - 6.6 K/cumm HISTORICAL RESULTS Lymphocytes, abs 3.0 1.2 - 3.3 K/cumm HISTORICAL RESULTS Monocytes, absolute 1.0 0.2 - 1.2 K/cumm HISTORICAL RESULTS Eosinophils, abs 0.1 0.0 - 0.5 K/cumm HISTORICAL RESULTS Basophils, abs 0.1 0.0 - 0.2 K/cumm HISTORICAL RESULTS Blood specimen (specimen) 11/07/2015 12:56 PM [employer] us Josué Del Valle MD PhD LAB BLOOD ORDERABLES Fin al Result HISTORICAL RESULTS * All Microbiology Report Section (11/07/2015 12:00 AM [employer]) 11/07/2015 Narrative HISTORICAL RESULTS - 11/08/2015 10:26 AM [employer] ? [facility] ?[facility] ?[place], [place] [address] ? Patient Name: ??BRI JONES ? Med Rec Number: [id number] ? Fin Number: ?[id number] ? Date: ?1965 ? Sex/Age: ? Male 50 years ? Admit Date: ?02/01/2015 ? Discharge Date: 11/17/2015 ? Doctor: ?Josué Del Valle ? Facility: ?[facility] ([facility]) ? Location: ?BCC ?* Abnormal ??A Alert ??f Footnote ??^ Corrected ??L Low ??H High ?i Interp Data ??@ Ref Lab ? Chart Type:Cumulative ?* * * * MICROBIOLOGY - MOLECULAR TESTING * * * * ?PROCEDURE: Cytomegalovirus (CMV) PCR, Quantitative ? SOURCE: Blood ? COLLECTED: 11/07/15 ??1300 ?BODY SITE: ? STARTED: 11/07/15 ??1414 ? FREE TEXT SOURCE: ? FINAL REPORT ? REPORTED: 11/08/15721 ? CMV DNA NOT DETECTED (NEGATIVE). ??This assay can reliably detect ? CMV DNA as low as 100 IU/mL. ? ORDER COMMENTS ? (1)Testing performed by: [facility], [place] [address] ?* * * ??Interpretive Results ??* * * ? (1)This assay employs the FDA-cleared Qiagen/KOJI Drinks real-time CMV ? PCR test kit. The PCR primers amplify a portion of the major ? immediate early gene of human cytomegalovirus. The assay does ? not amplify any of the other human herpes viruses or human DNA. ? If CMV DNA is detected, quantitative results will be reported in ? International Units (IU)/mL of blood as well as the log base 10 ? transformed value. The benefit of this practice is to improve ? the comparability of CMV PCR results among different ? laboratories. The lower limit of detection of the assay is 100 ? IU/mL. The assay is accurate for quantitation in the range of ? 870 to 5,800,000 IU/mL or 2.9 to 6.8 log(10) IU/mL. The CMV ? International Unit was developed by the WHO and is based on a ? consensus quantitative level of a preparation of CMV DNA as ? tested by a number of reference laboratories. The adoption of ? the International Unit as a measure of reporting quantitative ? CMV results will help with the standardization of quantitative ? CMV results between laboratories employing different assays and ? should assist with the development of critical levels for the ? management of patients at risk for CMV disease.This test kit is ? FDA cleared for CMV detection in plasma. ??The FDA-modified use ? of this test for CMV detection in whole blood was validated and ? its performance characteristics determined by [place] ? [facility]. It has not been cleared ? or approved by the U.S. Food and Drug Administration. ? us Historical Provider LAB MICROBIOLOGY - GENERA L ORDERABLES Final Result HISTORICAL RESULTS * Cytomegalovirus (CMV) PCR (08/23/2015 2:11 PM CDT) Blood specimen (specimen) (Unknown) 08/23/2015 2:11 PM CDT 08/23/2015 4:17 PM CDT Impressions HISTORICAL RESULTS - 08/24/2015 5:46 AM CDT This assay employs the FDA-cleared Qiagen/KOJI Drinks real-time CMV PCR test kit. The PCR primers amplify a portion of the major immediate early gene of human cytomegalovirus. The assay does not amplify any of the other human herpes viruses or human DNA. ??If CMV DNA is detected, quantitative results will be reported in International Units (IU)/mL of blood as well as the log base 10 transformed value. The benefit of this practice is to improve the comparability of CMV PCR results among different laboratories. The lower limit of detection of the assay is 100 IU/mL. The assay is accurate for quantitation in the range of 870 to 5,800,000 IU/mL or 2.9 to 6.8 log(10) IU/mL. Narrative HISTORICAL RESULTS - 08/24/2015 5:46 AM CDT CMV DNA NOT DETECTED (NEGATIVE). ??This assay can reliably detect CMV DNA as low as 100 IU/mL. us Historical Provider LAB MICROBIOLOGY - GENERA L ORDERABLES Final Result HISTORICAL RESULTS * (ABNORMAL) Plasma comprehensive metabolic panel (08/23/2015 2:11 PM CDT) Pathologist [facility] A. gap 8 0 - 16 mmol/L HISTORICAL RESULTS Sodium 139 135 - 145 mmol/L HISTORICAL RESULTS Glucose 268(H) 70 - 199 mg/dl HISTORICAL RESULTS K, pl 4.4 3.3 - 4.9 mmol/L HISTORICAL RESULTS BUN 14 8 - 25 mg/dl HISTORICAL RESULTS Chloride 102 97 - 110 mmol/L HISTORICAL RESULTS Creatinine 0.90 0.70 - 1.30 mg/dl HISTORICAL RESULTS CO2 29 22 - 32 mmol/L HISTORICAL RESULTS Calcium 9.7 8.6 - 10.3 mg/dl HISTORICAL RESULTS Protein, pl 7.0 6.5 - 8.5 g/dl HISTORICAL RESULTS Alb 4.1 3.6 - 5.0 g/dl HISTORICAL RESULTS Bilirubin 0.3 0.3 - 1.1 mg/dl HISTORICAL RESULTS Alk phos 115 38 - 126 Units/L HISTORICAL RESULTS AST 54(H) 11 - 47 Units/L HISTORICAL RESULTS ALT 88(H) 7 - 53 Units/L HISTORICAL RESULTS Plasma 08/23/2015 2:11 PM CDT Josué Del Valle MD PhD LAB BLOOD ORDERABLES Fin al Result Performing Organization Address [facility] de Phone Number HISTORICAL RESULTS * (ABNORMAL) Serum lactate dehydrogenase (LDH) (08/23/2015 2:11 PM CDT) Lactate dehydrogenase (LDH) 253(H) 100 - 250 Units/L HISTORICAL RESULTS Serum 08/23/2015 2:11 PM CDT Josué Del Valle MD PhD LAB BLOOD ORDERABLES Fin al Result Performing Organization Address [facility] de Phone Number HISTORICAL RESULTS * Serum uric acid (08/23/2015 2:11 PM CDT) Uric acid 5.8 3.0 - 8.0 mg/dl HISTORICAL RESULTS Serum 08/23/2015 2:11 PM CDT Josué Del Valle MD PhD LAB BLOOD ORDERABLES Fin al Result Performing Organization Address [facility] de Phone Number HISTORICAL RESULTS * Serum magnesium (08/23/2015 2:11 PM CDT) Magnesium 1.7 1.4 - 2.5 mg/dl HISTORICAL RESULTS Serum 08/23/2015 2:11 PM CDT Josué Del Valle MD PhD LAB BLOOD ORDERABLES Fin al Result Performing Organization Address [facility] Co de Phone Number HISTORICAL RESULTS * (ABNORMAL) Blood cell count [CBC] panel, 7 CAM (08/23/2015 2:09 PM CDT) RBC 4.38(L) 4.50 - 5.70 M/cumm HISTORICAL RESULTS WBC 12.6(H) 3.8 - 9.8 K/cumm HISTORICAL RESULTS Hgb 15.8 13.8 - 17.2 g/dl HISTORICAL RESULTS Eosinophils, abs 0.0 0.0 - 0.5 K/cumm HISTORICAL RESULTS Hct 47.1 40.7 - 50.3 % HISTORICAL RESULTS Basophils, abs 0.1 0.0 - 0.2 K/cumm HISTORICAL RESULTS MCV 107.6(H) 80.0 - 97.6 fl HISTORICAL RESULTS MCH 36.0(H) 26.7 - 33.7 pg HISTORICAL RESULTS MCHC 33.5 32.7 - 35.5 g/dl HISTORICAL RESULTS Rdw 12.8 11.8 - 14.6 % HISTORICAL RESULTS Neutrophils, abs 10.5(H) 1.8 - 6.6 K/cumm HISTORICAL RESULTS Lymphocytes, abs 1.4 1.2 - 3.3 K/cumm HISTORICAL RESULTS Monocytes, absolute 0.6 0.2 - 1.2 K/cumm HISTORICAL RESULTS Platelets 219 140 - 440 K/cumm HISTORICAL RESULTS MPV 8.1 6.8 - 10.4 fl HISTORICAL RESULTS Neutrophils 82.9(H) 38.7 - 74.5 % HISTORICAL RESULTS Lymphocytes 11.5(L) 20.0 - 54.3 % HISTORICAL RESULTS Monos 4.9 4.3 - 13.5 % HISTORICAL RESULTS Eosinophils 0.2 0.0 - 6.0 % HISTORICAL RESULTS Basophils 0.5 0.0 - 3.0 % HISTORICAL RESULTS Blood specimen (specimen) 08/23/2015 2:09 PM CDT Josué Del Valle MD PhD LAB BLOOD ORDERABLES Fin al Result HISTORICAL RESULTS * Blood tacrolimus (FK-506) drug level (08/23/2015 2:00 PM CDT) Tacrolimus <1.0 ng/ml HISTORICA L RESULTS Comment: Undetectable. ??Please verify that the correct immunosuppressant test was requested. Interpretive Data This test was developed using an analyte specific reagent. Its performance characteristics were determined by the [facility] in a manner consistent with CLIA requirements. ??This test has not been cleared or approved by the U.S. Food and Drug Administration. Current interpretive data was last revised on 2012. Blood specimen (specimen) 08/23/2015 2:00 PM CDT us Josué Del Valle MD PhD LAB BLOOD ORDERABLES Fin al Result HISTORICAL RESULTS * All Microbiology Report Section (08/23/2015 12:00 AM CDT) 08/23/2015 Narrative HISTORICAL RESULTS - 11/08/2015 10:26 AM [employer] ? [facility] ?[facility] ?[place], [place] [address] ? Patient Name: ??BRI JONES ? Med Rec Number: [id number] ? Fin Number: ?[id number] ? Date: ?1965 ? Sex/Age: ? Male 50 years ? Admit Date: ?02/01/2015 ? Discharge Date: 11/17/2015 ? Doctor: ?Josué Del Valle ? Facility: ?[facility] ([facility]) ? Location: ?BCC ?* Abnormal ??A Alert ??f Footnote ??^ Corrected ??L Low ??H High ?i Interp Data ??@ Ref Lab ? Chart Type:Cumulative ?* * * * MICROBIOLOGY - MOLECULAR TESTING * * * * ?PROCEDURE: Cytomegalovirus (CMV) PCR, Quantitative ? SOURCE: Blood ? COLLECTED: 08/23/15 ??1411 ?BODY SITE: ? STARTED: 08/23/15 ??1617 ? FREE TEXT SOURCE: ? FINAL REPORT ? REPORTED: 08/24/15 0546 ? CMV DNA NOT DETECTED (NEGATIVE). ??This assay can reliably detect ? CMV DNA as low as 100 IU/mL. ? ORDER COMMENTS ? (1)Testing performed by: [facility], ? [place] [address] ?* * * ??Interpretive Results ??* * * ? (1)This assay employs the FDA-cleared Qiagen/KOJI Drinks real-time CMV ? PCR test kit. The PCR primers amplify a portion of the major ? immediate early gene of human cytomegalovirus. The assay does ? not amplify any of the other human herpes viruses or human DNA. ? If CMV DNA is detected, quantitative results will be reported in ? International Units (IU)/mL of blood as well as the log base 10 ? transformed value. The benefit of this practice is to improve ? the comparability of CMV PCR results among different ? laboratories. The lower limit of detection of the assay is 100 ? IU/mL. The assay is accurate for quantitation in the range of ? 870 to 5,800,000 IU/mL or 2.9 to 6.8 log(10) IU/mL. The CMV ? International Unit was developed by the WHO and is based on a ? consensus quantitative level of a preparation of CMV DNA as ? tested by a number of reference laboratories. The adoption of ? the International Unit as a measure of reporting quantitative ? CMV results will help with the standardization of quantitative ? CMV results between laboratories employing different assays and ? should assist with the development of critical levels for the ? management of patients at risk for CMV disease.This test kit is ? FDA cleared for CMV detection in plasma. ??The FDA-modified use ? of this test for CMV detection in whole blood was validated and ? its performance characteristics determined by [place] ? [facility]. It has not been cleared ? or approved by the U.S. Food and Drug Administration. ? us Historical Provider LAB MICROBIOLOGY - GENERA L ORDERABLES Final Result HISTORICAL RESULTS * (ABNORMAL) Blood cell count [CBC] panel, 7 CAM (04/28/2015 2:38 PM CDT) WBC 16.4(H) 3.8 - 9.8 K/cumm HISTORICAL RESULTS RBC 4.27(L) 4.50 - 5.70 M/cumm HISTORICAL RESULTS Hgb 15.6 13.8 - 17.2 g/dl HISTORICAL RESULTS Hct 46.3 40.7 - 50.3 % HISTORICAL RESULTS MCV 108.4(H) 80.0 - 97.6 fl HISTORICAL RESULTS MCH 36.6(H) 26.7 - 33.7 pg HISTORICAL RESULTS MCHC 33.7 32.7 - 35.5 g/dl HISTORICAL RESULTS Rdw 14.4 11.8 - 14.6 % HISTORICAL RESULTS Platelets 212 140 - 440 K/cumm HISTORICAL RESULTS MPV 8.1 6.8 - 10.4 fl HISTORICAL RESULTS Neutrophils 68.8 38.7 - 74.5 % HISTORICAL RESULTS Lymphocytes 22.3 20.0 - 54.3 % HISTORICAL RESULTS Monos 7.7 4.3 - 13.5 % HISTORICAL RESULTS Eosinophils 0.5 0.0 - 6.0 % HISTORICAL RESULTS Basophils 0.7 0.0 - 3.0 % HISTORICAL RESULTS Neutrophils, abs 11.3(H) 1.8 - 6.6 K/cumm HISTORICAL RESULTS Lymphocytes, abs 3.7(H) 1.2 - 3.3 K/cumm HISTORICAL RESULTS Monocytes, absolute 1.3(H) 0.2 - 1.2 K/cumm HISTORICAL RESULTS Eosinophils, abs 0.1 0.0 - 0.5 K/cumm HISTORICAL RESULTS Basophils, abs 0.1 0.0 - 0.2 K/cumm HISTORICAL RESULTS Blood specimen (specimen) 04/28/2015 2:38 PM CDT us Josué Del Valle MD PhD LAB BLOOD ORDERABLES Fin al Result HISTORICAL RESULTS * Blood tacrolimus (FK-506) drug level (04/28/2015 2:34 PM CDT) Tacrolimus 2.0 ng/ml HISTORICA L RESULTS Comment: Interpretive Data This test was developed using an analyte specific reagent. ??Its performance characteristics were determined by the [facility] in a manner consistent with CLIA requirements. This test has not been cleared or approved by the U.S. Food and Drug Administration. Current interpretive data was last revised on 2012. Blood specimen (specimen) 04/28/2015 2:34 PM CDT Josué Del Valle MD PhD LAB BLOOD ORDERABLES Fin al Result HISTORICAL RESULTS * Plasma comprehensive metabolic panel (04/28/2015 2:30 PM CDT) Sodium 140 135 - 145 mmol/L HISTORICAL RESULTS K, pl 3.9 3.3 - 4.9 mmol/L HISTORICAL RESULTS Chloride 103 97 - 110 mmol/L HISTORICAL RESULTS CO2 26 22 - 32 mmol/L HISTORICAL RESULTS A. gap 11 0 - 16 mmol/L HISTORICAL RESULTS Glucose 126 70 - 199 mg/dl HISTORICAL RESULTS BUN 10 8 - 25 mg/dl HISTORICAL RESULTS Creatinine 0.87 0.70 - 1.30 mg/dl HISTORICAL RESULTS Calcium 10.1 8.6 - 10.3 mg/dl HISTORICAL RESULTS Protein, pl 7.0 6.5 - 8.5 g/dl HISTORICAL RESULTS Alb 4.3 3.6 - 5.0 g/dl HISTORICAL RESULTS Bilirubin 0.5 0.3 - 1.1 mg/dl HISTORICAL RESULTS Alk phos 97 38 - 126 Units/L HISTORICAL RESULTS AST 24 11 - 47 Units/L HISTORICAL RESULTS ALT 47 7 - 53 Units/L HISTORICAL RESULTS Plasma 04/28/2015 2:30 PM CDT Josué Del Valle MD PhD LAB BLOOD ORDERABLES Fin al Result HISTORICAL RESULTS * (ABNORMAL) Blood cell count [CBC] panel, 7 CAM (02/01/2015 1:22 PM CDT) WBC 8.9 3.8 - 9.8 K/cumm HISTORICAL RESULTS RBC 4.53 4.50 - 5.70 M/cumm HISTORICAL RESULTS Hgb 16.7 13.8 - 17.2 g/dl HISTORICAL RESULTS Hct 47.8 40.7 - 50.3 % HISTORICAL RESULTS MCV 105.6(H) 80.0 - 97.6 fl HISTORICAL RESULTS MCH 36.8(H) 26.7 - 33.7 pg HISTORICAL RESULTS MCHC 34.9 32.7 - 35.5 g/dl HISTORICAL RESULTS Rdw 13.6 11.8 - 14.6 % HISTORICAL RESULTS Platelets 241 140 - 440 K/cumm HISTORICAL RESULTS MPV 8.2 6.8 - 10.4 fl HISTORICAL RESULTS Neutrophils 78.4(H) 38.7 - 74.5 % HISTORICAL RESULTS Lymphocytes 14.8(L) 20.0 - 54.3 % HISTORICAL RESULTS Monos 5.2 4.3 - 13.5 % HISTORICAL RESULTS Eosinophils 0.5 0.0 - 6.0 % HISTORICAL RESULTS Basophils 1.1 0.0 - 3.0 % HISTORICAL RESULTS Neutrophils, abs 7.0(H) 1.8 - 6.6 K/cumm HISTORICAL RESULTS Lymphocytes, abs 1.3 1.2 - 3.3 K/cumm HISTORICAL RESULTS Monocytes, absolute 0.5 0.2 - 1.2 K/cumm HISTORICAL RESULTS Eosinophils, abs 0.0 0.0 - 0.5 K/cumm HISTORICAL RESULTS Basophils, abs 0.1 0.0 - 0.2 K/cumm HISTORICAL RESULTS Blood specimen (specimen) 02/01/2015 1:22 PM CDT Josué Del Valle MD PhD LAB BLOOD ORDERABLES Fin al Result HISTORICAL RESULTS * Blood tacrolimus (FK-506) drug level (02/01/2015 1:15 PM CDT) Tacrolimus <1.0 ng/ml HISTORICA L RESULTS Comment: Undetectable. ??Please verify that the correct immunosuppressant test was requested. Interpretive Data This test was developed using an analyte specific reagent. ??Its performance characteristics were determined by the [facility] in a manner consistent with CLIA requirements. This test has not been cleared or approved by the U.S. Food and Drug Administration. Current interpretive data was last revised on 2012. Blood specimen (specimen) 02/01/2015 1:15 PM CDT us Josué Del Valle MD PhD LAB BLOOD ORDERABLES Clark diana Result HISTORICAL RESULTS * (ABNORMAL) Plasma comprehensive metabolic panel (02/01/2015 1:15 PM CDT) Sodium 139 135 - 145 mmol/L HISTORICAL RESULTS K, pl 4.8 3.3 - 4.9 mmol/L HISTORICAL RESULTS Chloride 103 97 - 110 mmol/L HISTORICAL RESULTS CO2 23 22 - 32 mmol/L HISTORICAL RESULTS A. gap 13 0 - 16 mmol/L HISTORICAL RESULTS Glucose 268(H) 70 - 199 mg/dl HISTORICAL RESULTS BUN 14 8 - 25 mg/dl HISTORICAL RESULTS Creatinine 0.83 0.70 - 1.30 mg/dl HISTORICAL RESULTS Calcium 10.0 8.6 - 10.3 mg/dl HISTORICAL RESULTS Protein, pl 7.5 6.5 - 8.5 g/dl HISTORICAL RESULTS Alb 4.4 3.6 - 5.0 g/dl HISTORICAL RESULTS Bilirubin 0.4 0.3 - 1.1 mg/dl HISTORICAL RESULTS Alk phos 112 38 - 126 Units/L HISTORICAL RESULTS AST 41 11 - 47 Units/L HISTORICAL RESULTS ALT 53 7 - 53 Units/L HISTORICAL RESULTS Plasma 02/01/2015 1:15 PM CDT us Josué Del Valle MD PhD LAB BLOOD ORDERABLES Fin al Result Performing Organization Address [facility] Co de Phone Number HISTORICAL RESULTS documented in this encounter Visit Diagnoses Diagnosis 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
--- OUTSIDE RECORDS SUMMARY | 2024-11-22 11:11 | XMS_ITS | Encounter Summary ---
Author Organization [facility] Facility Care Team Providers Care Cash Clerk Name Role Phone Unavailable Primary Care Provider Unavailabl e Encounter Details Date Type Department Care Team (Late st Contact Info) Description 07/15/2013 - 07/15/2013 11:59 PM CDT Hospital Encounter [facility] Christopher Armenta MD PhD [address] DIV [employer], [address] [place] [id number] Fitting and adjustment of other device; Acute myeloid leukemia (HCC) Social History Tobacco Use Types Packs/Day Years Used Date Smoking Tobacco: Never Assessed Sex and Gender Information Value Date Recorded Sex Assigned at Not on file Legal 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 CHINO STAPLETON M.D. FINAL REPORT The radiology attending physician has personally reviewed this study, and has reviewed and/or edited this written report and agrees with it. ACC# ??Date Time ??Exam [id number] Jul 15, 2013 14:35:00 [id number] Ret VenaCava Filter wImg EXAMINATION: ?INFERIOR VENA CAVAGRAM AND INFERIOR VENA CAVAL FILTER RETRIEVAL HISTORY/INDICATION: ??The patient is a 47-year-old male with acute pancreatitis and right lower extremity DVT. He was felt not to be a candidate for anticoagulation and received a temporary IVC filter. Request for filter retrieval. ATTENDING PRESENCE: Dr. Grider, the attending radiologist, was present from the beginning to the end of the procedure. SEDATION: Moderate sedation was administered under the attending physician's direction and continuous monitoring by a trained nurse specialist who was independent from those actually performing the procedure. ??Total monitored sedation time was 35 minutes. TECHNIQUE: ??The risks, benefits and alternatives were discussed and informed consent was obtained. Prior to beginning the procedure, Carlton Protocol was performed to confirm the patient's ??identity and the planned procedure. ??The fluoroscopy time has been recorded in the electronic medical record. Maximum sterile barriers including cap, mask, hand hygiene, sterile gloves, sterile gown, large sterile drape and 2% chlorhexidine for cutaneous antisepsis were used. Prior to the procedure, the central veins were evaluated by ultrasound. The recorded image shows a patent vessel. The skin over the left internal jugular vein was sterilely prepped, draped and infiltrated with 1% lidocaine. This vein was then accessed using real-time ultrasound guidance and a guidewire passed centrally. Using fluoroscopic guidance, the catheter was advanced into the IVC and DSA images obtained. The catheter was then exchanged for the filter retrieval sheath. A snare was used to engage the top hook of the filter. The sheath was then advanced over the filter to close it down and retract the legs from the wall of the IVC. The filter was then removed through the sheath. A completion venogram was obtained. At the end of the procedure, the sheath was removed and pressure held until hemostasis was achieved. ESTIMATED BLOOD LOSS: Minimal; less than 30 cc. CONDITION: Stable condition. DISCHARGED TO: ??Recovery and then to home. FINDINGS: Images of the IVC show no significant thrombus trapped in the filter. IVC filter placement remains intact and the inferior vena cava is patent. Venogram done after retrieval of the filter shows no abnormality of the IVC wall . ?? IMPRESSION: ?? Successful retrieval of filter from the inferior vena cava. PLAN: Recommendations for anticoagulation as clinically appropriate. ?? Requested By: CHRISTOPHER MIR ??Toño Dictated By: ?? CHINO STAPLETON M.D. ??on Jul 15 2013 ??6:21P This document has been electronically signed by: ABHIJEET GRIDER M.D. on Jul 16 2013 ??4:41P Procedure Note Provider, MD Shmuel - 03/22/2017 Toño CHAMPION M.D. FINAL REPORT The radiology attending physician has personally reviewed this study, and has reviewed and/or edited this written report and agrees with it. ACC# Date Time Exam [id number] Jul 15, 2013 14:35:00 [id number] Ret VenaCava Filter wImg EXAMINATION: INFERIOR VENA CAVAGRAM AND INFERIOR VENA CAVAL FILTER RETRIEVAL HISTORY/INDICATION: The patient is a 47-year-old male with acute pancreatitis and right lower extremity DVT. He was felt not to be a candidate for anticoagulation and received a temporary IVC filter. Request for filter retrieval. ATTENDING PRESENCE: Dr. Grider, the attending radiologist, was present from the beginning to the end of the procedure. SEDATION: Moderate sedation was administered under the attending physician's direction and continuous monitoring by a trained nurse specialist who was independent from those actually performing the procedure. Total monitored sedation time was 35 minutes. TECHNIQUE: The risks, benefits and alternatives were discussed and informed consent was obtained. Prior to beginning the procedure, Carlton Protocol was performed to confirm the patient's identity and the planned procedure. The fluoroscopy time has been recorded in the electronic medical record. Maximum sterile barriers including cap, mask, hand hygiene, sterile gloves, sterile gown, large sterile drape and 2% chlorhexidine for cutaneous antisepsis were used. Prior to the procedure, the central veins were evaluated by ultrasound. The recorded image shows a patent vessel. The skin over the left internal jugular vein was sterilely prepped, draped and infiltrated with 1% lidocaine. This vein was then accessed using real-time ultrasound guidance and a guidewire passed centrally. Using fluoroscopic guidance, the catheter was advanced into the IVC and DSA images obtained. The catheter was then exchanged for the filter retrieval sheath. A snare was used to engage the top hook of the filter. The sheath was then advanced over the filter to close it down and retract the legs from the wall of the IVC. The filter was then removed through the sheath. A completion venogram was obtained. At the end of the procedure, the sheath was removed and pressure held until hemostasis was achieved. ESTIMATED BLOOD LOSS: Minimal; less than 30 cc. CONDITION: Stable condition. DISCHARGED TO: Recovery and then to home. FINDINGS: Images of the IVC show no significant thrombus trapped in the filter. IVC filter placement remains intact and the inferior vena cava is patent. Venogram done after retrieval of the filter shows no abnormality of the IVC wall . IMPRESSION: Successful retrieval of filter from the inferior venacava. PLAN: Recommendations for anticoagulation as clinically appropriate. Requested By: CHRISTOPHER MIR M.D. Dictated By: CHINO STAPLETON M.D. on Jul 15 2013 6:21P This document has been electronically signed by: ABHIJEET GRIDER M.D. on Jul 16 2013 4:41P us Historical Provider MD [facility] IR PROCEDURES Final R esult documented in this encounter Visit Diagnoses Diagnosis Fitting and adjustment of other device Acute myeloid leukemia (HCC) Acute myeloid leukemia, without mention of having achieved remission documented in this encounter 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
--- OUTSIDE RECORDS SUMMARY | 2024-11-22 11:11 | XMS_ITS | Encounter Summary ---
Author Organization [facility] Facility Care Team Providers Care Motor Vehicle License Clerk Name Role Phone Unavailable Primary Care Provider Unavailabl e Encounter Details Date Type Department Care Team (Latest Contact Info) Description 10/31/2016 10:00 AM PRENATAL GENETIC COUNSELOR - 10/31/2016 11:59 PM PRENATAL GENETIC COUNSELOR Hospital Encounter [facility] Christopher Armenta MD PhD [address] [employer], [address] [address] Acute myeloblastic leukemia in remission (CMS/HCC); Umbilical hernia without obstruction or gangrene Social History Tobacco Use Types Packs/Day Years Used Date Smoking Tobacco: Never Assessed Sex and Gender Information Value Date Recorded Sex Assigned at Not on file Legal 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 MAGDA MOTTA M.D. FINAL REPORT The radiology attending physician has personally reviewed this study, and has reviewed and/or edited this written report and agrees with it. ACC# ??Date Time ??Exam [id number] Oct 31, 2016 10:39:00 [id number] [address] [employer] EXAMINATION: ?? LIMITED ABDOMINAL SONOGRAM DATE: 10/31/2016 HISTORY: 51-year-old man with painful abdominal hernia. COMPARISON: No comparison available. FINDINGS: ??There is a small fat containing partially reducible umbilical hernia with a fascial defect measuring 1 cm. No bowel was visualized herniating into the herniation sac. IMPRESSION: ? Small fat-containing umbilical hernia with a 1 cm fascial defect. Requested By: CHRISTOPHER MIR M.D. Dictated By: ?? MAGDA MOTTA M.D. ??on Oct 31 2016 10:45A This document has been electronically signed by: SYLWIA HATFIELD M.D. on Oct 31 2016 11:28A [id number] Procedure Note Provider, MD Shmuel - 03/26/2017 SYLWIA HATFIELD M.D. MAGDA MOTTA M.D. FINAL REPORT The radiology attending physician has personally reviewed this study, and has reviewed and/or edited this written report and agrees with it. ACC# Date Time Exam [id number] Oct 31, 2016 10:39:00 [id number] [address] [employer] EXAMINATION: LIMITED ABDOMINAL SONOGRAM DATE: 10/31/2016 HISTORY: 51-year-old man with painful abdominal hernia. COMPARISON: No comparison available. FINDINGS: There is a small fat containing partially reducible umbilical hernia with a fascial defect measuring 1 cm. No bowel was visualized herniating into the herniation sac. IMPRESSION: Small fat-containing umbilical hernia with a 1 cm fascial defect. Requested By: CHRISTOPHER MIR M.D. Dictated By: MAGDA MOTTA M.D. on Oct 31 2016 10:45A This document has been electronically signed by: SYLWIA HATFIELD M.D. 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
--- OUTSIDE RECORDS SUMMARY | 2024-11-22 11:11 | XMS_ITS | Encounter Summary ---
Author Organization [facility] Facility Care Team Providers Care Weight Guesser Name Role Phone Unavailable Primary Care Provider Unavailabl e Encounter Details Date Type Department Care Team (Latest Contact Info) Description 05/03/2016 12:52 PM CDT - 05/07/2016 11:59 PM CDT Hospital Encounter [facility] Josué Armenta MD PhD [address] [employer], [address] [address] Acute myeloblastic leukemia in remission ([facility]/HCC); Diabetes mellitus due to underlying condition with hypoglycemia without coma ([facility]/HCC) Social History Tobacco Use Types Packs/Day Years Used Date Smoking Tobacco: Never Assessed Sex and Gender Information Value Date Recorded Sex Assigned at Not on file 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 Gender Identity Not on file Sexual Orientation [...] Procedure Name Priority Date/Time Associated Diagnosis Comments BLOOD CELL COUNT Routine 09/05/2016 2:34 PM CDT SERUM LACTATE DEHYDROGENASE (LDH) Routine 09/05/2016 2:02 PM CDT PLASMA COMPREHENSIVE METABOLIC PANEL Routine 09/05/2016 2:02 PM CDT BLOOD CELL COUNT Routine 05/07/2016 11:4 3 AM CDT SERUM TRIIODOTHYRONINE (T3), FREE Routine 05/07/2016 11:42 AM CDT SERUM THYROXINE (T4), FREE Routine 05/07/2016 11:42 AM CDT SERUM THYROID-STIMULATING HORMONE (TSH) Routine 05/07/2016 11:42 AM CDT SERUM TESTOSTERONE, FREE Routine 016 11:42 AM CDT SERUM 25-HYDROXYCHOLECALCIFERO L (VITAMIN D) Routine 05/07/2016 11:42 AM CDT SERUM LIPID PANEL Routine 05/07/2016 11: 40 AM CDT SERUM LACTATE DEHYDROGENASE (LDH) Routine 05/07/2016 11:40 AM CDT PLASMA COMPREHENSIVE METABOLIC PANEL Routine 05/07/2016 11:40 AM CDT DISCHARGE LABORATORY CUMULATIVE REPORT 05/03/2016 documented in this encounter Results * (ABNORMAL) Blood cell count [CBC] panel, 7 CAM (09/05/2016 2:34 PM CDT) WBC 15.6(H) 3.8 - 9.8 K/cumm CDR HISTORICAL RESULTS RBC 4.26(L) 4.50 - 5.70 M/cumm CDR HISTORICAL RESULTS Hgb 15.4 13.8 - 17.2 g/dl CDR HISTORICAL RESULTS Hct 46.3 40.7 - 50.3 % CDR HISTORICAL RESULTS MCV 108.5(H) 80.0 - 97.6 fl CDR HISTORICAL RESULTS MCH 36.1(H) 26.7 - 33.7 pg CDR HISTORICAL RESULTS MCHC 33.3 32.7 - 35.5 g/dl CDR HISTORICAL RESULTS Rdw 14.3 11.8 - 14.6 % CDR HISTORICAL RESULTS Platelets 250 140 - 440 K/cumm CDR HISTORICAL RESULTS MPV 8.3 6.8 - 10.4 fl CDR HISTORICAL RESULTS Neutrophils 89.4(H) 38.7 - 74.5 % CDR HISTORICAL RESULTS Lymphocytes 7.1(L) 20.0 - 54.3 % CDR HISTORICAL RESULTS Monos 3.4(L) 4.3 - 13.5 % CDR HISTORICAL RESULTS Eosinophils 0.1 0.0 - 6.0 % CDR HISTORICAL RESULTS Basophils 0.0 0.0 - 3.0 % CDR HISTORICAL RESULTS Neutrophils, abs 13.9(H) 1.8 - 6.6 K/cumm CDR HISTORICAL RESULTS Lymphocytes, abs 1.1(L) 1.2 - 3.3 K/cumm CDR HISTORICAL RESULTS Monocytes, absolute 0.5 0.2 - 1.2 K/cumm CDR HISTORICAL RESULTS Eosinophils, abs 0.0 0.0 - 0.5 K/cumm CDR HISTORICAL RESULTS Basophils, abs 0.0 0.0 - 0.2 K/cumm CDR HISTORICAL RESULTS Blood specimen (specimen) 09/05/2016 2:34 PM CDT Josué Del Valle MD PhD LAB BLOOD ORDERABLES Fin al Result Performing Organization Address [facility] de Phone Number CDR HISTORICAL RESULTS * (ABNORMAL) Plasma comprehensive metabolic panel (09/05/2016 2:02 PM CDT) Sodium 130(L) 135 - 145 mmol/L CDR HISTORICAL RESULTS K, pl 5.1(H) 3.3 - 4.9 mmol/L CDR HISTORICAL RESULTS Chloride 95(L) 97 - 110 mmol/L CDR HISTORICAL RESULTS CO2 25 22 - 32 mmol/L CDR HISTORICAL RESULTS A. gap 10 2 - 15 mmol/L CDR HISTORICAL RESULTS Glucose 449(H) 70 - 199 mg/dl CDR HISTORICAL RESULTS BUN 15 8 - 25 mg/dl CDR HISTORICAL RESULTS Creatinine 0.79 0.70 - 1.30 mg/dl CDR HISTORICAL RESULTS Calcium 9.3 8.5 - 10.3 mg/dl CDR HISTORICAL RESULTS Protein, pl 7.3 6.5 - 8.5 g/dl CDR HISTORICAL RESULTS Alb 3.9 3.5 - 5.0 g/dl CDR HISTORICAL RESULTS Bilirubin 0.3 0.1 - 1.2 mg/dl CDR HISTORICAL RESULTS Alk phos 114 40 - 130 Units/L CDR HISTORICAL RESULTS AST 24 10 - 50 Units/L CDR HISTORICAL RESULTS ALT 20 7 - 55 Units/L CDR HISTORICAL RESULTS Plasma 09/05/2016 2:02 PM CDT Josué Del Valle MD PhD LAB BLOOD ORDERABLES Fin al Result CDR HISTORICAL RESULTS * (ABNORMAL) Serum lactate dehydrogenase (LDH) (09/05/2016 2:02 PM CDT) Lactate dehydrogenase (LDH) 277(H) 100 - 250 Units/L CDR HISTORICAL RESULTS Serum 09/05/2016 2:02 PM CDT Josué Del Valle MD PhD LAB BLOOD ORDERABLES Clark al Result CDR HISTORICAL RESULTS * (ABNORMAL) Blood cell count [CBC] panel, 7 CAM (05/07/2016 11:43 AM CDT) WBC 9.1 3.8 - 9.8 K/cumm HISTORICAL RESULTS RBC 4.29(L) 4.50 - 5.70 M/cumm HISTORICAL RESULTS Hgb 15.4 13.8 - 17.2 g/dl HISTORICAL RESULTS Hct 45.2 40.7 - 50.3 % HISTORICAL RESULTS MCV 105.4(H) 80.0 - 97.6 fl HISTORICAL RESULTS MCH 35.9(H) 26.7 - 33.7 pg HISTORICAL RESULTS MCHC 34.1 32.7 - 35.5 g/dl HISTORICAL RESULTS Rdw 13.0 11.8 - 14.6 % HISTORICAL RESULTS Platelets 254 140 - 440 K/cumm HISTORICAL RESULTS MPV 8.3 6.8 - 10.4 fl HISTORICAL RESULTS Neutrophils 79.5(H) 38.7 - 74.5 % HISTORICAL RESULTS Lymphocytes 13.6(L) 20.0 - 54.3 % HISTORICAL RESULTS Monos 5.3 4.3 - 13.5 % HISTORICAL RESULTS Eosinophils 0.4 0.0 - 6.0 % HISTORICAL RESULTS Basophils 1.2 0.0 - 3.0 % HISTORICAL RESULTS Neutrophils, abs 7.2(H) 1.8 - 6.6 K/cumm HISTORICAL RESULTS Lymphocytes, abs 1.2 1.2 - 3.3 K/cumm HISTORICAL RESULTS Monocytes, absolute 0.5 0.2 - 1.2 K/cumm HISTORICAL RESULTS Eosinophils, abs 0.0 0.0 - 0.5 K/cumm HISTORICAL RESULTS Basophils, abs 0.1 0.0 - 0.2 K/cumm HISTORICAL RESULTS Blood specimen (specimen) 05/07/2016 11:43 AM CDT Josué Del Valle MD PhD LAB BLOOD ORDERABLES Clark diana Result HISTORICAL RESULTS * (ABNORMAL) Serum 25-hydroxycholecalciferol (vitamin D) (05/07/2016 11:42 AM CDT) 25-OH Vit D 14(L) 30 - 100 ng/ml HISTORICAL RESULTS Serum 05/07/2016 11:4 2 AM CDT Josué Del Valle MD PhD LAB BLOOD ORDERABLES Fin al Result Performing Organization Address [facility] de Phone Number HISTORICAL RESULTS * Serum thyroid-stimulating hormone (TSH) (05/07/2016 11:42 AM CDT) TSH 0.88 0.30 - 4.20 mcIUnits/m l HISTORICAL RESULTS Comment: Interpretive Data Hyperthyroid: ??<0.1 mcIUnit/mL Hypothyroid: ??>12.0 mcIUnit/mL Current interpretive data was last revised on 01. Serum 05/07/2016 11:4 2 AM CDT Josué Del Valle MD PhD LAB BLOOD ORDERABLES Fin al Result Performing Organization Address [facility] de Phone Number HISTORICAL RESULTS * Serum triiodothyronine (T3), free (05/07/2016 11:42 AM CDT) Free T3 3.40 2.00 - 4.40 pg/ml HISTORICAL RESULTS Serum 05/07/2016 11:4 2 AM CDT Josué Del Valle MD PhD LAB BLOOD ORDERABLES Fin al Result Performing Organization Address [facility] de Phone Number HISTORICAL RESULTS * Serum thyroxine (T4), free (05/07/2016 11:42 AM CDT) Free T4 1.01 0.90 - 1.70 ng/dl HISTORICAL RESULTS Serum 05/07/2016 11:4 2 AM CDT Josué Del Valle MD PhD LAB BLOOD ORDERABLES Fin al Result Performing Organization Address [facility] de Phone Number HISTORICAL RESULTS * Serum testosterone, free (05/07/2016 11:42 AM CDT) Testosterone 329 240 - 950 ng/dl HISTORICAL RESULTS Comment: ADDITIONAL INFORMATION Testing performed by Liquid Chromatography-Tandem Mass Spectrometry (LC-MS/MS). Test Performed by: [place] [address] Care Information Associate: Neftaly Keita II, M.D., Ph.D. Testosterone, free 9.5 4.3 - 16.4 ng/dl HISTORICAL RESULTS Comment: ADDITIONAL INFORMATION Testing performed by Equilibrium Dialysis. Serum 05/07/2016 11:4 2 AM CDT Josué Del Valle MD PhD LAB BLOOD ORDERABLES Fin al Result HISTORICAL RESULTS * Plasma comprehensive metabolic panel (05/07/2016 11:40 AM CDT) Sodium 139 135 - 145 mmol/L HISTORICAL RESULTS K, pl 4.4 3.3 - 4.9 mmol/L HISTORICAL RESULTS Chloride 104 97 - 110 mmol/L HISTORICAL RESULTS CO2 26 22 - 32 mmol/L HISTORICAL RESULTS A. gap 9 2 - 15 mmol/L HISTORICAL RESULTS Glucose 176 70 - 199 mg/dl HISTORICAL RESULTS BUN 10 8 - 25 mg/dl HISTORICAL RESULTS Creatinine 0.96 0.70 - 1.30 mg/dl HISTORICAL RESULTS Calcium 9.7 8.5 - 10.3 mg/dl HISTORICAL RESULTS Protein, pl 6.8 6.5 - 8.5 g/dl HISTORICAL RESULTS Alb 4.4 3.5 - 5.0 g/dl HISTORICAL RESULTS Bilirubin 0.3 0.1 - 1.2 mg/dl HISTORICAL RESULTS Alk phos 83 40 - 130 Units/L HISTORICAL RESULTS AST 22 10 - 50 Units/L HISTORICAL RESULTS ALT 23 7 - 55 Units/L HISTORICAL RESULTS Plasma 05/07/2016 11:4 0 AM CDT Josué Del Valle MD PhD LAB BLOOD ORDERABLES Fin al Result Performing Organization Address [facility] de Phone Number HISTORICAL RESULTS * Serum lactate dehydrogenase (LDH) (05/07/2016 11:40 AM CDT) Lactate dehydrogenase (LDH) 207 100 - 250 Units/L HISTORICAL RESULTS Serum 05/07/2016 11:4 0 AM CDT Josué Del Valle MD PhD LAB BLOOD ORDERABLES Fin al Result Performing Organization Address [facility] de Phone Number HISTORICAL RESULTS * (ABNORMAL) Serum lipid panel (05/07/2016 11:40 AM CDT) Cholesterol 259(H) 0 - 200 mg/dl HISTORICAL RESULTS Comment: Interpretive Data Desirable: ?<200 mg/dL Borderline high: ??200-239 mg/dL High: ? >240 mg/dL Literature Reference: National Cholesterol Education Program (NCEP) Expert Panel on Detection, Evaluation, and Treatment of High Blood Cholesterol in Adults (Adult Treatment Panel III). ??Circulation 2004; 110:227. Current interpretive data was last revised on 2005. Triglycerides 288(H) 0 - 150 mg/dl HISTORICAL RESULTS Comment: Interpretive Data Desirable: ? < 150 mg/dL Borderline High: ? 150 - 199 mg/dL High: ?> 200 mg/dL Literature Reference: See Cholesterol Current interpretive data was last revised on 07. HDL 48 40 - 199 mg/dl HISTORICAL RESULTS Comment: Interpretive Data Less than 40 mg/dL - low; A major risk factor for heart disease. Greater than or equal to 60 mg/dL - High; ??considered protective of heart disease. Literature Reference: See Cholesterol Current interpretive data was last revised on 2008. LDL 154(H) 0 - 129 mg/dl HISTORICAL RESULTS Comment: Interpretive Data Optimal: ? < 100 mg/dL Near Optimal: ?100 - 129 mg/dL Borderline High: ?? 130 - 159 mg/dL High: ?> 160 mg/dL Literature Reference: See Cholesterol Current interpretive data was last revised on 07. Non-HDL cholesterol, calculated 211 mg/dl HISTORICAL RESULTS Comment: Interpretive Data When triglycerides are >200 mg/dL, non-HDL C is a secondary target of therapy, with a goal 30 mg/dL higher than the identified LDL-C goal. Reference: ??See Cholesterol Reference. Current interpretive data was last revised 2012. Serum 05/07/2016 11:4 0 AM CDT Josué Del Valle MD PhD LAB BLOOD ORDERABLES Fin al Result HISTORICAL RESULTS * DISCHARGE LABORATORY CUMULATIVE REPORT (05/03/2016) Narrative 05/03/2016 Ordered by an unspecified provider. 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
--- OUTSIDE RECORDS SUMMARY | 2024-11-22 11:11 | XMS_ITS | Encounter Summary ---
Author Organization [facility] [place] Facility Care Team Providers Care Cigarette Machine Filler Name Role Phone Unavailable Primary Care Provider Unavailabl e Encounter Details Date Type Department Care Team (Latest Contact Info) Description 05/25/2013 - 05/25/2013 11:59 PM CDT Hospital Encounter [facility] Christopher Armenta MD PhD [address] [employer] [place] [address] Shortness of breath; Chronic pancreatitis (CMS/HCC) (HCC); Acute myeloid leukemia (HCC) Social History Tobacco Use Types Packs/Day Years Used Date Smoking Tobacco: Never Assessed Sex and Gender Information Value Date Recorded Sex Assigned at Not on file 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 FINAL REPORT The radiology attending physician has personally reviewed this study, and has reviewed and/or edited this written report and agrees with it. ACC# ??Date Time ??Exam [id number] May 25, 2013 13:22:[address] Chest with contrast EXAMINATION: ?CT chest with contrast HISTORY: ??Shortness of breath. Concern for pulmonary embolism. TECHNIQUE: ??Transaxial computed tomography images of the chest were obtained with intravenous contrast according to pulmonary embolism protocol. 95 mL of Optiray 350 was administered uneventfully. FINDINGS: No pulmonary embolism. Emphysematous changes and partial collapse of the right middle lobe are again noted. No pleural effusion or pneumothorax. No mediastinal, hilar, axillary, or supraclavicular lymphadenopathy. Mediastinal lipomatosis is noted. Heart is normal in size. There is trace atherosclerotic calcification of the thoracic aorta. No pericardial effusion. Limited examination of the abdomen reveals a replaced left hepatic artery and changes of pancreatitis with cystic degeneration. Note is made of multiple enlarged gastrohepatic lymph nodes. Otherwise, unremarkable. ?? IMPRESSION: 1. No pulmonary embolus. 2. Emphysematous change and partial collapse of the right middle lobe, unchanged. 3. Changes of pancreatitis. ?? Requested By: CHRISTOPHER MIR M.D. Dictated By: ?? BRI ALLEN M.D. ??on May?2012 ??2:01P This document has been electronically signed by: GURDEEP ROGEL M.D. on May?2012 ??4:03P Procedure Note Provider, MD Shmuel - 03/22/2017 Toño TAYLOR M.D. FINAL REPORT The radiology attending physician has personally reviewed this study, and has reviewed and/or edited this written report and agrees with it. ACC# Date Time Exam [id number] May 25, 2013 13:22:[id number] Chest with contrast EXAMINATION: CT chest with contrast HISTORY: Shortness of breath. Concern for pulmonary embolism. TECHNIQUE: Transaxial computed tomography images of the chest were obtained with intravenous contrast according to pulmonary embolism protocol. 95 mL of Optiray 350 was administered uneventfully. FINDINGS: No pulmonary embolism. Emphysematous changes and partial collapse of the right middle lobe are again noted. No pleural effusion or pneumothorax. No mediastinal, hilar, axillary, or supraclavicular lymphadenopathy. Mediastinal lipomatosis is noted. Heart is normal in size. There is trace atherosclerotic calcification of the thoracic aorta. No pericardial effusion. Limited examination of the abdomen reveals a replaced left hepatic artery and changes of pancreatitis with cystic degeneration. Note is made of multiple enlarged gastrohepatic lymph nodes. Otherwise, unremarkable. IMPRESSION: 1. No pulmonary embolus. 2. Emphysematous change and partial collapse of the right middle lobe, unchanged. 3. Changes of pancreatitis. Requested By: CHRISTOPHER MIR M.D. Dictated By: BRI ALLEN M.D. on May 25 2013 2:01P This document has been electronically signed by: GURDEEP ROGEL M.D. on May 25 2013 4:03P us Historical Provider MD TAPIA CT PROCEDURES Final R esult documented in this encounter Visit Diagnoses Diagnosis Shortness of breath Chronic pancreatitis (CMS/HCC) (HCC) Chronic pancreatitis Acute myeloid leukemia (HCC) Acute myeloid leukemia, without mention of having achieved remission documented in this encounter 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
--- OUTSIDE RECORDS SUMMARY | 2024-11-22 11:11 | XMS_ITS | Encounter Summary ---
Author Organization [facility] Facility Care Team Providers Care Die Lay Out Worker Name Role Phone Unavailable Primary Care Provider Unavailabl e Encounter Details Date Type Department Care Team (Latest Contact Info) Description 12/14/2016 10:32 AM FORMULATION TECHNICIAN - 12/14/2016 11:59 PM [facility] Hospital Encounter [facility] Senthil Boggs MD [id number] [place] [address] Encounter for preprocedural laboratory examination; Umbilical hernia without obstruction or gangrene; Personal history of other venous thrombosis and embolism; Type 2 diabetes mellitus with diabetic neuropathy (CMS/HCC); 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); Chronic obstructive pulmonary disease (CMS/HCC); Other myeloid leukemia, in remission (CMS/HCC); Personal history of antineoplastic chemotherapy; Personal history of irradiation; Disorder involving immune mechanism (CMS/HCC); Mtutm-tkdevl-dwih disease (CMS/HCC); Family history of ischemic heart disease and other diseases of the circulatory system; Cigarette nicotine dependence, uncomplicated; Other mobile ui/ux designer (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) drug therapy Social History Tobacco Use Types Packs/Day Years Used Date Smoking Tobacco: Never Assessed Sex and Gender Information Value Date Recorded Sex Assigned at Not on file Legal 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 Gender Identity Not on file Sexual Orientation Not on file documented as of this encounter Last Filed Vital Signs Vital Sign Reading Time Taken Comments Blood Pressure - - Pulse - - Temperature - - Respiratory Rate - - Oxygen Saturation - - Inhaled Oxygen Concentration - - Weight - - Height 177.8 cm (5' 10 ) 01/23/2013 1:18 AM FORMULATION TECHNICIAN Body Mass Index - - documented in this encounter Medications at Time [...] Name Priority Date/Time Associated Diagnosis Comments PLASMA BASIC METABOLIC PANEL Routine 12/14/2016 2:49 PM FORMULATION TECHNICIAN DISCHARGE LABORATORY CUMULATIVE REPORT 12/14/2016 documented in this encounter Results * Plasma basic metabolic panel (12/14/2016 2:49 PM FORMULATION TECHNICIAN) Sodium 140 135 - 145 mmol/L CDR HISTORICAL RESULTS K, pl 4.1 3.3 - 4.9 mmol/L CDR HISTORICAL RESULTS Chloride 100 97 - 110 mmol/L CDR HISTORICAL RESULTS CO2 30 22 - 32 mmol/L CDR HISTORICAL RESULTS BUN 17 8 - 25 mg/dl CDR HISTORICAL RESULTS Glucose 88 70 - 199 mg/dl CDR HISTORICAL RESULTS Creatinine 0.95 0.80 - 1.30 mg/dl CDR HISTORICAL RESULTS Calcium 10.0 8.5 - 10.3 mg/dl CDR HISTORICAL RESULTS A. gap 10 2 - 15 mmol/L CDR HISTORICAL RESULTS Plasma 12/14/2016 2:49 PM FORMULATION TECHNICIAN Katherine Nguyen NP LAB BLOOD ORDERABLES Final Result CDR HISTORICAL RESULTS * DISCHARGE LABORATORY CUMULATIVE REPORT (12/14/2016) Narrative 12/14/2016 Ordered by an unspecified provider. 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) (HCC) Chronic obstructive pulmonary disease (HCC) Other myeloid leukemia, in remission (HCC) Personal history of antineoplastic chemotherapy Personal history of irradiation Personal history of irradiation, presenting hazards to health 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
--- OUTSIDE RECORDS SUMMARY | 2024-11-22 11:11 | XMS_ITS | Encounter Summary ---
Author Organization [facility] Facility Care Team Providers Care Wilderness Guide Name Role Phone Unavailable Primary Care Provider Unavailabl e Encounter Details Date Type Department Care Team (Late st Contact Info) Description 11/18/2012 - 11/17/2013 11:59 PM WEAVING INSTRUCTOR Hospital Encounter [facility] Narcisa Kohler, ARMEN [address] DIV [employer], [address] [place] [id number] Acute myeloid leukemia (HCC) Social History Tobacco Use Types Packs/Day Years Used Date Smoking Tobacco: Never Assessed Sex and Gender Information Value Date Recorded Sex Assigned at Not on file Legal Sex Male 10:48 AM WEAVING INSTRUCTOR Gender Identity Not on file Sexual [...] Diagnosis Comments DISCHARGE LABORATORY CUMULATIVE REPORT Routine 11/17/2013 12:00 AM WEAVING INSTRUCTOR CYTOMEGALOVIRUS (CMV) PCR, CDR Routine 10/20/2013 2:33 PM WEAVING INSTRUCTOR SERUM URIC ACID Routine 10/20/2013 2:33 PM WEAVING INSTRUCTOR SERUM MAGNESIUM Routine 10/20/2013 2:33 PM WEAVING INSTRUCTOR SERUM LACTATE DEHYDROGENASE (LDH) Routine 10/20/2013 2:33 PM WEAVING INSTRUCTOR PLASMA COMPREHENSIVE METABOLIC PANEL Routine 10/20/2013 2:33 PM WEAVING INSTRUCTOR CRITICAL RESULT CALL BACK Routine 10/20/2013 2:33 PM WEAVING INSTRUCTOR BLOOD TACROLIMUS (FK-506) DRUG LEVEL Routine 10/20/2013 2:33 PM WEAVING INSTRUCTOR BLOOD CELL COUNT Routine 10/20/2013 2:27 PM WEAVING INSTRUCTOR ALL MICROBIOLOGY REPORT SECTION Routine 10/20/2013 12:00 AM WEAVING INSTRUCTOR CYTOMEGALOVIRUS (CMV) PCR, CDR Routine 09/21/2013 4:45 PM WEAVING INSTRUCTOR SERUM URIC ACID Routine 09/21/2013 4:45 PM WEAVING INSTRUCTOR SERUM MAGNESIUM Routine 09/21/2013 4:45 PM WEAVING INSTRUCTOR SERUM LACTATE DEHYDROGENASE (LDH) Routine 09/21/2013 4:45 PM WEAVING INSTRUCTOR PLASMA COMPREHENSIVE METABOLIC PANEL Routine 09/21/2013 4:45 PM WEAVING INSTRUCTOR BLOOD TACROLIMUS (FK-506) DRUG LEVEL Routine 09/21/2013 4:45 PM WEAVING INSTRUCTOR BLOOD CELL COUNT Routine 09/21/2013 4:45 PM WEAVING INSTRUCTOR ALL MICROBIOLOGY REPORT SECTION Routine 09/21/2013 12:00 AM WEAVING INSTRUCTOR BLOOD CELL COUNT Routine 08/12/2013 10:5 3 AM CDT CYTOMEGALOVIRUS (CMV) PCR, CDR Routine 08/12/2013 10:50 AM CDT SERUM URIC ACID Routine 08/12/2013 10:50 AM CDT SERUM MAGNESIUM Routine 08/12/2013 10:50 AM CDT SERUM LACTATE DEHYDROGENASE (LDH) Routine 08/12/2013 10:50 AM CDT PLASMA COMPREHENSIVE METABOLIC PANEL Routine 08/12/2013 10:50 AM CDT BLOOD TACROLIMUS (FK-506) DRUG LEVEL Routine 08/12/2013 10:50 AM CDT ALL MICROBIOLOGY REPORT SECTION Routine 08/12/2013 12:00 AM CDT PLASMA PROTHROMBIN TIME (PT) Routine 07/15/2013 11:28 AM CDT BLOOD CELL COUNT Routine 07/15/2013 11:2 8 AM CDT CYTOMEGALOVIRUS (CMV) PCR, CDR Routine 07/06/2013 10:14 AM CDT SERUM URIC ACID Routine 07/06/2013 10:14 AM CDT SERUM MAGNESIUM Routine 07/06/2013 10:14 AM CDT SERUM LACTATE DEHYDROGENASE (LDH) Routine 07/06/2013 10:14 AM CDT PLASMA COMPREHENSIVE METABOLIC PANEL Routine 07/06/2013 10:14 AM CDT BLOOD TACROLIMUS (FK-506) DRUG LEVEL Routine 07/06/2013 10:14 AM CDT BLOOD CELL COUNT Routine 07/06/2013 10:1 4 AM CDT BLOOD CELL MORPHOLOGIC EXAM Routine 07/06/2013 10:14 AM CDT ALL MICROBIOLOGY REPORT SECTION Routine 07/06/2013 12:00 AM CDT BLOOD CELL COUNT Routine 05/25/2013 10:2 5 AM CDT CYTOMEGALOVIRUS (CMV) PCR, CDR Routine 05/25/2013 10:23 AM CDT SERUM URIC ACID Routine 05/25/2013 10:23 AM CDT SERUM MAGNESIUM Routine 05/25/2013 10:23 AM CDT SERUM LACTATE DEHYDROGENASE (LDH) Routine 05/25/2013 10:23 AM CDT PLASMA COMPREHENSIVE METABOLIC PANEL Routine 05/25/2013 10:23 AM CDT BLOOD TACROLIMUS (FK-506) DRUG LEVEL Routine 05/25/2013 10:23 AM CDT ALL MICROBIOLOGY REPORT SECTION Routine 05/25/2013 12:00 AM CDT CYTOMEGALOVIRUS (CMV) PCR, CDR Routine 04/03/2013 1:05 PM CDT SERUM URIC ACID Routine 04/03/2013 1:05 PM CDT SERUM MAGNESIUM Routine 04/03/2013 1:05 PM CDT SERUM LACTATE DEHYDROGENASE (LDH) Routine 04/03/2013 1:05 PM CDT PLASMA COMPREHENSIVE METABOLIC PANEL Routine 04/03/2013 1:05 PM CDT BLOOD TACROLIMUS (FK-506) DRUG LEVEL Routine 04/03/2013 1:05 PM CDT BLOOD HEMOGLOBIN A1C Routine 04/03/2013 1:05 PM CDT BLOOD CELL COUNT Routine 04/03/2013 1:04 PM CDT ALL MICROBIOLOGY REPORT SECTION Routine 04/03/2013 12:00 AM CDT BLOOD TACROLIMUS (FK-506) DRUG LEVEL Routine 03/20/2013 1:03 PM CDT BLOOD CELL COUNT Routine 03/20/2013 1:03 PM CDT CYTOMEGALOVIRUS (CMV) PCR, CDR Routine 03/20/2013 1:02 PM CDT SERUM LACTATE DEHYDROGENASE (LDH) Routine 03/20/2013 1:02 PM CDT PLASMA COMPREHENSIVE METABOLIC PANEL Routine 03/20/2013 1:02 PM CDT ALL MICROBIOLOGY REPORT SECTION Routine 03/20/2013 12:00 AM CDT CYTOMEGALOVIRUS (CMV) PCR, CDR Routine 02/27/2013 1:54 PM CDT SERUM URIC ACID Routine 02/27/2013 1:54 PM CDT SERUM MAGNESIUM Routine 02/27/2013 1:54 PM CDT SERUM LACTATE DEHYDROGENASE (LDH) Routine 02/27/2013 1:54 PM CDT PLASMA COMPREHENSIVE METABOLIC PANEL Routine 02/27/2013 1:54 PM CDT BLOOD TACROLIMUS (FK-506) DRUG LEVEL Routine 02/27/2013 1:54 PM CDT BLOOD MORPHOLOGY SCREEN Routine 02/28/20 1:52 PM CDT BLOOD CELL COUNT Routine 02/27/2013 1:52 PM CDT ALL MICROBIOLOGY REPORT SECTION Routine 02/27/2013 12:00 AM CDT BLOOD TACROLIMUS (FK-506) DRUG LEVEL Routine 12/26/2012 11:18 AM WEAVING INSTRUCTOR CYTOMEGALOVIRUS (CMV) PCR, CDR Routine 12/26/2012 10:55 AM WEAVING INSTRUCTOR SERUM TESTOSTERONE Routine 12/26/2012 10 :55 AM WEAVING INSTRUCTOR SERUM PROSTATE-SPECIFIC ANTIGEN (PSA) Routine 12/26/2012 10:55 AM WEAVING INSTRUCTOR SERUM LACTATE DEHYDROGENASE (LDH) Routine 12/26/2012 10:55 AM WEAVING INSTRUCTOR SERUM HUMAN IMMUNODEFICIENCY VIRUS (HIV) 1, 2 AB Routine 12/26/2012 10:55 AM WEAVING INSTRUCTOR PLASMA COMPREHENSIVE METABOLIC PANEL Routine 12/26/2012 10:55 AM WEAVING INSTRUCTOR BLOOD CELL COUNT Routine 12/26/2012 10:5 4 AM WEAVING INSTRUCTOR ALL MICROBIOLOGY REPORT SECTION Routine 12/26/2012 12:00 AM WEAVING INSTRUCTOR documented in this encounter Results * Discharge Laboratory Cumulative Report (11/17/2013 12:00 AM WEAVING INSTRUCTOR) 11/17/2013 Narrative HISTORICAL RESULTS - 10/21/2013 11:25 AM WEAVING INSTRUCTOR ?[facility] ?Department of Laboratories ? [address] [facility] [address] ?[place] [address] Patient Name: ?BRI JONES Epifanio Rec Number: ??[id number] Fin Number: ?[id number] Date: ?1965 Sex/Age: ? Male 47 years Admit Date: ?11/18/2012 Discharge Date: ??11/17/2013 Doctor: ?Josué Del Valle Facility: ?[facility] Location: ?[facility] Chart Printed: ?? 10/21/2013 ??11:25 ?* Abnormal ?? C Critical ?? f Footnote ?? ^ Corrected ?? L Low ?? H High ?i Interp Data ?? @ Reference Lab ? Chart Type: Periodic ? VIROLOGY ? PROCEDURE: Cytomegalovirus PCR, Blood ?SOURCE: Blood COLLECTED: 10/20/13 ??1433 ? BODY SITE: STARTED: 10/20/13 ??1536 FREE TEXT SOURCE: FINAL REPORT REPORTED: 10/21/13 0751 Negative (<200 copies/ml) ORDER COMMENTS (1)Testing performed by: [facility], [place], [place]. ??[address]. ? VIROLOGY ? PROCEDURE: Cytomegalovirus PCR, Blood ?SOURCE: Blood COLLECTED: 10/20/13 ??1433 ? BODY SITE: STARTED: 10/20/13 ??1536 FREE TEXT SOURCE: * * * ??Interpretive Results ??* * * (1)This assay is based on quantitative real-time PCR. ??The primers used amplify a conserved 61 bp region of the DNA polymerase gene of human CMV. ??Based on data from the [facility], these primers do not amplify any of the other seven human herpes viruses or human DNA sequences. It is thought that close to 100% of CMV strains will amplify with these primers, although genotypic sequence variations could result in a false negative result. This assay expresses results in units of CMV genome copies per ml of blood. ??The theoretical lower limit of detection of the assay is 200 copies/ml. ??The assay is accurate for quantitation in the range 2,000-1,250,000 genome copies/ml. ??Specimens found to have detectable CMV DNA beneath the level of accurate quantitation are reported as CMV DNA detected. ??Unable to quantitate because the level of viral DNA is below the level of accurate quantitation (<2,000 copies/ml) . ??If the specimen is found to be positive with greater than 1,250,000 genome copies/ml, a preliminary report is issued stating Positive: >1,250,000 copies/ml , and the specimen is subsequently retested after dilution to determine the actual copy number. Currently, there are no accepted standards for correlating specific copy numbers with CMV disease. Studies in our laboratory have shown that the quantitative assay is more sensitive than the qualitative PCR and the shell vial culture methods previously employed. ??In these studies, positive results ranged from 600 to 35,000,000 copies/ml. ??When the quantitative assay was positive but below the level of accurate quantitation, the qualitative PCR and culture assays were usually negative. ??At a level of 4,000 copies/ml, approximately 50% of qualitative PCR assays were positive. ??In these evaluations, the shell vial culture was only positive at levels above 15,000 copies/ml.General Comments: This test was developed and its performance characteristics determined by [facility]. ??It has not been cleared or approved by the U.S. Food and Drug Administration. ??Current interpretive data was last revised on 2009. us Historical Provider LAB BLOOD ORDERABLES Pilar pawel Result HISTORICAL RESULTS * Cytomegalovirus (CMV) PCR (10/20/2013 2:33 PM WEAVING INSTRUCTOR) Blood specimen (specimen) (Unknown) 10/20/2013 2:33 PM WEAVING INSTRUCTOR 10/20/2013 3:36 PM WEAVING INSTRUCTOR Impressions HISTORICAL RESULTS - 10/21/2013 7:52 AM WEAVING INSTRUCTOR This assay is based on quantitative real-time PCR. ??The primers used amplify a conserved 61 bp region of the DNA polymerase gene of human CMV. ??Based on data from the [facility], these primers do not amplify any of the other seven human herpes viruses or human DNA sequences. ??It is thought that close to 100% of CMV strains will amplify with these primers, although genotypic sequence variations could result in a false negative result. This assay expresses results in units of CMV genome copies per ml of blood. ??The theoretical lower limit of detection of the assay is 200 copies/ml. ??The assay is accurate for quantitation in the range 2,000-1,250,000 genome copies/ml. ??Specimens found to have detectable CMV DNA beneath the level of accurate quantitation are reported as CMV DNA detected. ??Unable to quantitate because the level of viral DNA is below the level of accurate quantitation (<2,000 copies/ml) . ??If the specimen is found to be positive with greater than 1,250,000 genome copies/ml, a preliminary report is issued stating Positive: >1,250,000 copies/ml , and the specimen is subsequently retested after dilution to determine the actual copy number. Currently, there are no accepted standards for correlating specific copy numbers with CMV disease. ??Studies in our laboratory have shown that the quantitative assay is more sensitive than the qualitative PCR and the shell vial culture methods previously employed. ??In these studies, positive results ranged from 600 to 35,000,000 copies/ml. ??When the quantitative assay was positive but below the level of accurate quantitation, the qualitative PCR and culture assays were usually negative. ??At a level of 4,000 copies/ml, approximately 50% of qualitative PCR assays were positive. ??In these evaluations, the shell vial culture was only positive at levels above 15,000 copies/ml. General Comments: This test was developed and its performance characteristics determined by [facility]. ??It has not been cleared or approved by the U.S. Food and Drug Administration. ?? Current interpretive data was last revised on 2009. Narrative HISTORICAL RESULTS - 10/21/2013 7:52 AM WEAVING INSTRUCTOR Negative (<200 copies/ml) Historical Provider MD LAB MICROBIOLOGY - GENERA L ORDERABLES Final Result Performing Organization Address City/[facility] Co de Phone Number HISTORICAL RESULTS * Blood tacrolimus (FK-506) drug level (10/20/2013 2:33 PM WEAVING INSTRUCTOR) Tacrolimus 2.0 ng/ml HISTORICA L RESULTS Comment: Interpretive Data This test was developed using an analyte specific reagent. ??Its performance characteristics were determined by the [facility] in a manner consistent with CLIA requirements. This test has not been cleared or approved by the U.S. Food and Drug Administration. Current interpretive data was last revised on 2012. Blood specimen (specimen) 10/20/2013 2:33 PM WEAVING INSTRUCTOR Josué Del Valle MD PhD LAB BLOOD ORDERABLES Fin al Result HISTORICAL RESULTS * (ABNORMAL) Plasma comprehensive metabolic panel (10/20/2013 2:33 PM WEAVING INSTRUCTOR) Sodium 133(L) 135 - 145 mmol/L HISTORICAL RESULTS K, pl 5.6(H) 3.3 - 4.9 mmol/L HISTORICAL RESULTS Chloride 97 97 - 110 mmol/L HISTORICAL RESULTS CO2 28 22 - 32 mmol/L HISTORICAL RESULTS A. gap 8 0 - 16 mmol/L HISTORICAL RESULTS Glucose 582(C) 70 - 199 mg/dl HISTORICAL RESULTS Comment:{Repeated and verifi ed.} BUN 16 8 - 25 mg/dl HISTORICAL RESULTS Creatinine 1.11 0.70 - 1.30 mg/dl HISTORICAL RESULTS Calcium 9.6 8.6 - 10.3 mg/dl HISTORICAL RESULTS Protein, pl 6.8 6.5 - 8.5 g/dl HISTORICAL RESULTS Alb 4.0 3.6 - 5.0 g/dl HISTORICAL RESULTS Bilirubin 0.4 0.3 - 1.1 mg/dl HISTORICAL RESULTS Alk phos 131(H) 38 - 126 Units/L HISTORICAL RESULTS AST 29 11 - 47 Units/L HISTORICAL RESULTS ALT 69(H) 7 - 53 Units/L HISTORICAL RESULTS Plasma 10/20/2013 2:33 PM WEAVING INSTRUCTOR Josué Del Valle MD PhD LAB BLOOD ORDERABLES Fin al Result Performing Organization Address [facility] Co de Phone Number HISTORICAL RESULTS * (ABNORMAL) Serum lactate dehydrogenase (LDH) (10/20/2013 2:33 PM WEAVING INSTRUCTOR) Lactate dehydrogenase (LDH) 265(H) 100 - 250 Units/L HISTORICAL RESULTS Serum 10/20/2013 2:33 PM WEAVING INSTRUCTOR Josué Del Valle MD PhD LAB BLOOD ORDERABLES Fin al Result Performing Organization Address [facility] Co de Phone Number HISTORICAL RESULTS * Serum uric acid (10/20/2013 2:33 PM WEAVING INSTRUCTOR) Uric acid 5.1 3.0 - 8.0 mg/dl HISTORICAL RESULTS Serum 10/20/2013 2:33 PM WEAVING INSTRUCTOR Josué Del Valle MD PhD LAB BLOOD ORDERABLES Fin al Result HISTORICAL RESULTS * Critical result call back (10/20/2013 2:33 PM WEAVING INSTRUCTOR) Date notified 10/20/2013 HISTO RICAL RESULTS Time notified 1523 HISTOR ICAL RESULTS Test name glucose HISTORICAL RESULTS Called to Kari Geller HISTORICAL RESULTS Credentials RN HISTORIC AL RESULTS Called by MPW HISTORICAL RESULTS No specimen 10/20/2013 2:33 PM WEAVING INSTRUCTOR Josué Del Valle MD PhD LAB BLOOD ORDERABLES Fin al Result Performing Organization Address [facility] de Phone Number HISTORICAL RESULTS * Serum magnesium (10/20/2013 2:33 PM WEAVING INSTRUCTOR) Magnesium 1.7 1.4 - 2.5 mg/dl HISTORICAL RESULTS Serum 10/20/2013 2:33 PM WEAVING INSTRUCTOR Josué Del Valle MD PhD LAB BLOOD ORDERABLES Fin al Result Performing Organization Address [facility] de Phone Number HISTORICAL RESULTS * (ABNORMAL) Blood cell count [CBC] panel, 7 CAM (10/20/2013 2:27 PM WEAVING INSTRUCTOR) WBC 12.8(H) 3.8 - 9.8 K/cumm HISTORICAL RESULTS RBC 4.12(L) 4.50 - 5.70 M/cumm HISTORICAL RESULTS Hgb 15.0 13.8 - 17.2 g/dl HISTORICAL RESULTS Hct 45.4 40.7 - 50.3 % HISTORICAL RESULTS MCV 110.3(H) 80.0 - 97.6 fl HISTORICAL RESULTS MCH 36.5(H) 26.7 - 33.7 pg HISTORICAL RESULTS MCHC 33.1 32.7 - 35.5 g/dl HISTORICAL RESULTS Rdw 14.3 11.8 - 14.6 SD HISTORICAL RESULTS Platelets 237 140 - 440 K/cumm HISTORICAL RESULTS MPV 8.5 6.8 - 10.4 fl HISTORICAL RESULTS Neutrophils 91.8(H) 38.7 - 74.5 % HISTORICAL RESULTS Lymphocytes 5.9(L) 20.0 - 54.3 % HISTORICAL RESULTS Monos 2.0(L) 4.3 - 13.5 % HISTORICAL RESULTS Eosinophils 0.0 0.0 - 6.0 % HISTORICAL RESULTS Basophils 0.3 0.0 - 3.0 % HISTORICAL RESULTS Neutrophils, abs 11.8(H) 1.8 - 6.6 K/cumm HISTORICAL RESULTS Lymphocytes, abs 0.8(L) 1.2 - 3.3 K/cumm HISTORICAL RESULTS Monocytes, absolute 0.3 0.2 - 1.2 K/cumm HISTORICAL RESULTS Eosinophils, abs 0.0 0.0 - 0.5 K/cumm HISTORICAL RESULTS Basophils, abs 0.0 0.0 - 0.2 K/cumm HISTORICAL RESULTS Blood specimen (specimen) 10/20/2013 2:27 PM WEAVING INSTRUCTOR us Josué Del Valle MD PhD LAB BLOOD ORDERABLES Fin al Result HISTORICAL RESULTS * All Microbiology Report Section (10/20/2013 12:00 AM WEAVING INSTRUCTOR) 10/20/2013 Narrative HISTORICAL RESULTS - 10/21/2013 11:32 AM WEAVING INSTRUCTOR ? [facility] ?[address] [facility] [address] ?[place], [place] [address] ? Patient Name: ??BRI JONES ? Med Rec Number: [id number] ? Fin Number: ?[id number] ? Date: ?1965 ? Sex/Age: ? Male 47 years ? Admit Date: ?11/18/2012 ? Discharge Date: 11/17/2013 ? Doctor: ?Josué Del Valle ? Facility: ?[facility] ? Location: ?[facility] ?* Abnormal ??A Alert ??f Footnote ??^ Corrected ??L Low ??H High ?i Interp Data ??@ Ref Lab ? Chart Type:Cumulative ?* * * * MICROBIOLOGY - MOLECULAR TESTING * * * * ?PROCEDURE: Cytomegalovirus PCR, Blood ? SOURCE: Blood ? COLLECTED: 10/20/13 ??1433 ?BODY SITE: ? STARTED: 10/20/13 ??1536 ? FREE TEXT SOURCE: ? FINAL REPORT ? REPORTED: 10/21/13 0751 ? Negative (<200 copies/ml) ? ORDER COMMENTS ? (1)Testing performed by: [facility], ? [place]. ??[address]. ?* * * ??Interpretive Results ??* * * ? (1)This assay is based on quantitative real-time PCR. ??The primers ? used amplify a conserved 61 bp region of the DNA polymerase gene ? of human CMV. ??Based on data from the [facility] ? [facility], these primers do not amplify any ? of the other seven human herpes viruses or human DNA sequences. ? It is thought that close to 100% of CMV strains will amplify ? with these primers, although genotypic sequence variations could ? result in a false negative result. This assay expresses results ? in units of CMV genome copies per ml of blood. ??The theoretical ? lower limit of detection of the assay is 200 copies/ml. ??The ? assay is accurate for quantitation in the range 2,000-1,250,000 ? genome copies/ml. ??Specimens found to have detectable CMV DNA ? beneath the level of accurate quantitation are reported as CMV ? DNA detected. ??Unable to quantitate because the level of viral ? DNA is below the level of accurate quantitation (<2,000 ? copies/ml) . ??If the specimen is found to be positive with ? greater than 1,250,000 genome copies/ml, a preliminary report is ? issued stating Positive: >1,250,000 copies/ml , and the ? specimen is subsequently retested after dilution to determine ? the actual copy number. Currently, there are no accepted ? standards for correlating specific copy numbers with CMV disease. ? Studies in our laboratory have shown that the quantitative ? assay is more sensitive than the qualitative PCR and the shell ? vial culture methods previously employed. ??In these studies, ? positive results ranged from 600 to 35,000,000 copies/ml. ??When ? the quantitative assay was positive but below the level of ? accurate quantitation, the qualitative PCR and culture assays ? were usually negative. ??At a level of 4,000 copies/ml, ? approximately 50% of qualitative PCR assays were positive. ??In ? these evaluations, the shell vial culture was only positive at ? levels above 15,000 copies/ml.General Comments: This test was ? developed and its performance characteristics determined by . ? [facility]. ??It has not been cleared ? or approved by the U.S. Food and Drug Administration. ??Current ? interpretive data was last revised on 2009. ? us Historical Provider LAB MICROBIOLOGY - GENERA L ORDERABLES Final Result HISTORICAL RESULTS * Cytomegalovirus (CMV) PCR (09/21/2013 4:45 PM WEAVING INSTRUCTOR) Blood specimen (specimen) (Unknown) 09/21/2013 4:45 PM WEAVING INSTRUCTOR 09/21/2013 6:19 PM WEAVING INSTRUCTOR Impressions HISTORICAL RESULTS - 09/22/2013 7:13 AM WEAVING INSTRUCTOR This assay is based on quantitative real-time PCR. ??The primers used amplify a conserved 61 bp region of the DNA polymerase gene of human CMV. ??Based on data from the [facility], these primers do not amplify any of the other seven human herpes viruses or human DNA sequences. ??It is thought that close to 100% of CMV strains will amplify with these primers, although genotypic sequence variations could result in a false negative result. This assay expresses results in units of CMV genome copies per ml of blood. ??The theoretical lower limit of detection of the assay is 200 copies/ml. ??The assay is accurate for quantitation in the range 2,000-1,250,000 genome copies/ml. ??Specimens found to have detectable CMV DNA beneath the level of accurate quantitation are reported as CMV DNA detected. ??Unable to quantitate because the level of viral DNA is below the level of accurate quantitation (<2,000 copies/ml) . ??If the specimen is found to be positive with greater than 1,250,000 genome copies/ml, a preliminary report is issued stating Positive: >1,250,000 copies/ml , and the specimen is subsequently retested after dilution to determine the actual copy number. Currently, there are no accepted standards for correlating specific copy numbers with CMV disease. ??Studies in our laboratory have shown that the quantitative assay is more sensitive than the qualitative PCR and the shell vial culture methods previously employed. ??In these studies, positive results ranged from 600 to 35,000,000 copies/ml. ??When the quantitative assay was positive but below the level of accurate quantitation, the qualitative PCR and culture assays were usually negative. ??At a level of 4,000 copies/ml, approximately 50% of qualitative PCR assays were positive. ??In these evaluations, the shell vial culture was only positive at levels above 15,000 copies/ml. General Comments: This test was developed and its performance characteristics determined by [facility]. ??It has not been cleared or approved by the U.S. Food and Drug Administration. ?? Current interpretive data was last revised on 2009. Narrative HISTORICAL RESULTS - 09/22/2013 7:13 AM WEAVING INSTRUCTOR Negative (<200 copies/ml) Historical Provider LAB MICROBIOLOGY - GENERA L ORDERABLES Final Result Performing Organization Address [facility] Co de Phone Number HISTORICAL RESULTS * Blood tacrolimus (FK-506) drug level (09/21/2013 4:45 PM WEAVING INSTRUCTOR) Tacrolimus <1.0 ng/ml HISTORICA L RESULTS Comment: Undetectable. ??Please verify that the correct immunosuppressant test was requested. Interpretive Data This test was developed using an analyte specific reagent. ??Its performance characteristics were determined by the [facility] in a manner consistent with CLIA requirements. This test has not been cleared or approved by the U.S. Food and Drug Administration. Current interpretive data was last revised on 2012. Blood specimen (specimen) 09/21/2013 4:45 PM WEAVING INSTRUCTOR Josué Del Valle MD PhD LAB BLOOD ORDERABLES Fin al Result Performing Organization Address City/[facility] Co de Phone Number HISTORICAL RESULTS * (ABNORMAL) Plasma comprehensive metabolic panel (09/21/2013 4:45 PM WEAVING INSTRUCTOR) Sodium 139 135 - 145 mmol/L HISTORICAL RESULTS K, pl 4.4 3.3 - 4.9 mmol/L HISTORICAL RESULTS Chloride 103 97 - 110 mmol/L HISTORICAL RESULTS CO2 26 22 - 32 mmol/L HISTORICAL RESULTS A. gap 10 0 - 16 mmol/L HISTORICAL RESULTS Glucose 291(H) 70 - 199 mg/dl HISTORICAL RESULTS BUN 17 8 - 25 mg/dl HISTORICAL RESULTS Creatinine 0.74 0.70 - 1.30 mg/dl HISTORICAL RESULTS Calcium 9.8 8.6 - 10.3 mg/dl HISTORICAL RESULTS Protein, pl 7.2 6.5 - 8.5 g/dl HISTORICAL RESULTS Alb 4.2 3.6 - 5.0 g/dl HISTORICAL RESULTS Bilirubin 0.4 0.3 - 1.1 mg/dl HISTORICAL RESULTS Alk phos 111 38 - 126 Units/L HISTORICAL RESULTS AST 20 11 - 47 Units/L HISTORICAL RESULTS ALT 46 7 - 53 Units/L HISTORICAL RESULTS Plasma 09/21/2013 4:45 PM WEAVING INSTRUCTOR Josué Del Valle MD PhD LAB BLOOD ORDERABLES Fin al Result HISTORICAL RESULTS * Serum lactate dehydrogenase (LDH) (09/21/2013 4:45 PM WEAVING INSTRUCTOR) Lactate dehydrogenase (LDH) 200 100 - 250 Units/L HISTORICAL RESULTS Serum 09/21/2013 4:45 PM WEAVING INSTRUCTOR Josué Del Valle MD PhD LAB BLOOD ORDERABLES Fin al Result HISTORICAL RESULTS * Serum uric acid (09/21/2013 4:45 PM WEAVING INSTRUCTOR) Uric acid 4.5 3.0 - 8.0 mg/dl HISTORICAL RESULTS Serum 09/21/2013 4:45 PM WEAVING INSTRUCTOR Josué Del Valle MD PhD LAB BLOOD ORDERABLES Fin al Result HISTORICAL RESULTS * Serum magnesium (09/21/2013 4:45 PM WEAVING INSTRUCTOR) Magnesium 1.8 1.4 - 2.5 mg/dl HISTORICAL RESULTS Serum 09/21/2013 4:45 PM WEAVING INSTRUCTOR Josué Del Valle MD PhD LAB BLOOD ORDERABLES Fin al Result HISTORICAL RESULTS * (ABNORMAL) Blood cell count [CBC] panel, 7 CAM (09/21/2013 4:45 PM WEAVING INSTRUCTOR) WBC 12.6(H) 3.8 - 9.8 K/cumm HISTORICAL RESULTS RBC 4.23(L) 4.50 - 5.70 M/cumm HISTORICAL RESULTS Hgb 15.7 13.8 - 17.2 g/dl HISTORICAL RESULTS Hct 46.3 40.7 - 50.3 % HISTORICAL RESULTS MCV 109.3(H) 80.0 - 97.6 fl HISTORICAL RESULTS MCH 37.0(H) 26.7 - 33.7 pg HISTORICAL RESULTS MCHC 33.9 32.7 - 35.5 g/dl HISTORICAL RESULTS Rdw 13.2 11.8 - 14.6 SD HISTORICAL RESULTS Platelets 201 140 - 440 K/cumm HISTORICAL RESULTS MPV 8.3 6.8 - 10.4 fl HISTORICAL RESULTS Neutrophils 77.2(H) 38.7 - 74.5 % HISTORICAL RESULTS Lymphocytes 16.9(L) 20.0 - 54.3 % HISTORICAL RESULTS Monos 5.2 4.3 - 13.5 % HISTORICAL RESULTS Eosinophils 0.2 0.0 - 6.0 % HISTORICAL RESULTS Basophils 0.5 0.0 - 3.0 % HISTORICAL RESULTS Neutrophils, abs 9.7(H) 1.8 - 6.6 K/cumm HISTORICAL RESULTS Lymphocytes, abs 2.1 1.2 - 3.3 K/cumm HISTORICAL RESULTS Monocytes, absolute 0.7 0.2 - 1.2 K/cumm HISTORICAL RESULTS Eosinophils, abs 0.0 0.0 - 0.5 K/cumm HISTORICAL RESULTS Basophils, abs 0.1 0.0 - 0.2 K/cumm HISTORICAL RESULTS Blood specimen (specimen) 09/21/2013 4:45 PM WEAVING INSTRUCTOR us Josué Del Valle MD PhD LAB BLOOD ORDERABLES Fin al Result HISTORICAL RESULTS * All Microbiology Report Section (09/21/2013 12:00 AM WEAVING INSTRUCTOR) 09/21/2013 Narrative HISTORICAL RESULTS - 10/21/2013 11:32 AM WEAVING INSTRUCTOR ? [facility] ?[address] [facility] [address] ?[place], [place] [address] ? Patient Name: ??BRI JONES ? Med Rec Number: [id number] ? Fin Number: ?[id number] ? Date: ?1965 ? Sex/Age: ? Male 47 years ? Admit Date: ?11/18/2012 ? Discharge Date: 11/17/2013 ? Doctor: ?Josué Del Valle ? Facility: ?[facility] ? Location: ?BCC ?* Abnormal ??A Alert ??f Footnote ??^ Corrected ??L Low ??H High ?i Interp Data ??@ Ref Lab ? Chart Type:Cumulative ?* * * * MICROBIOLOGY - MOLECULAR TESTING * * * * ?PROCEDURE: Cytomegalovirus PCR, Blood ? SOURCE: Blood ? COLLECTED: 09/21/13 ??1645 ?BODY SITE: ? STARTED: 09/21/13 ??1819 ? FREE TEXT SOURCE: ? FINAL REPORT ? REPORTED: 09/22/13712 ? Negative (<200 copies/ml) ? ORDER COMMENTS ? (1)Testing performed by: [facility], ? [place]. ??[id number]. ?* * * ??Interpretive Results ??* * * ? (1)This assay is based on quantitative real-time PCR. ??The primers ? used amplify a conserved 61 bp region of the DNA polymerase gene ? of human CMV. ??Based on data from the [facility], these primers do not amplify any ? of the other seven human herpes viruses or human DNA sequences. ? It is thought that close to 100% of CMV strains will amplify ? with these primers, although genotypic sequence variations could ? result in a false negative result. This assay expresses results ? in units of CMV genome copies per ml of blood. ??The theoretical ? lower limit of detection of the assay is 200 copies/ml. ??The ? assay is accurate for quantitation in the range 2,000-1,250,000 ? genome copies/ml. ??Specimens found to have detectable CMV DNA ? beneath the level of accurate quantitation are reported as CMV ? DNA detected. ??Unable to quantitate because the level of viral ? DNA is below the level of accurate quantitation (<2,000 ? copies/ml) . ??If the specimen is found to be positive with ? greater than 1,250,000 genome copies/ml, a preliminary report is ? issued stating Positive: >1,250,000 copies/ml , and the ? specimen is subsequently retested after dilution to determine ? the actual copy number. Currently, there are no accepted ? standards for correlating specific copy numbers with CMV disease. ? Studies in our laboratory have shown that the quantitative ? assay is more sensitive than the qualitative PCR and the shell ? vial culture methods previously employed. ??In these studies, ? positive results ranged from 600 to 35,000,000 copies/ml. ??When ? the quantitative assay was positive but below the level of ? accurate quantitation, the qualitative PCR and culture assays ? were usually negative. ??At a level of 4,000 copies/ml, ? approximately 50% of qualitative PCR assays were positive. ??In ? these evaluations, the shell vial culture was only positive at ? levels above 15,000 copies/ml.General Comments: This test was ? developed and its performance characteristics determined by [facility]. ??It has not been cleared ? or approved by the U.S. Food and Drug Administration. ??Current ? interpretive data was last revised on 2009. ? us Historical Provider LAB MICROBIOLOGY - GENERA L ORDERABLES Final Result HISTORICAL RESULTS * (ABNORMAL) Blood cell count [CBC] panel, 7 CAM (08/12/2013 10:53 AM CDT) WBC 14.2(H) 3.8 - 9.8 K/cumm HISTORICAL RESULTS RBC 4.02(L) 4.50 - 5.70 M/cumm HISTORICAL RESULTS Hgb 15.0 13.8 - 17.2 g/dl HISTORICAL RESULTS Hct 44.3 40.7 - 50.3 % HISTORICAL RESULTS MCV 110.1(H) 80.0 - 97.6 fl HISTORICAL RESULTS MCH 37.4(H) 26.7 - 33.7 pg HISTORICAL RESULTS Comment:{Result consistent w ith previously reported values.} MCHC 33.9 32.7 - 35.5 g/dl HISTORICAL RESULTS Rdw 13.2 11.8 - 14.6 SD HISTORICAL RESULTS Platelets 228 140 - 440 K/cumm HISTORICAL RESULTS MPV 8.4 6.8 - 10.4 fl HISTORICAL RESULTS Neutrophils 92.2(H) 38.7 - 74.5 % HISTORICAL RESULTS Lymphocytes 5.6(L) 20.0 - 54.3 % HISTORICAL RESULTS Monos 1.9(L) 4.3 - 13.5 % HISTORICAL RESULTS Eosinophils 0.1 0.0 - 6.0 % HISTORICAL RESULTS Basophils 0.2 0.0 - 3.0 % HISTORICAL RESULTS Neutrophils, abs 13.1(H) 1.8 - 6.6 K/cumm HISTORICAL RESULTS Lymphocytes, abs 0.8(L) 1.2 - 3.3 K/cumm HISTORICAL RESULTS Monocytes, absolute 0.3 0.2 - 1.2 K/cumm HISTORICAL RESULTS Eosinophils, abs 0.0 0.0 - 0.5 K/cumm HISTORICAL RESULTS Basophils, abs 0.0 0.0 - 0.2 K/cumm HISTORICAL RESULTS Blood specimen (specimen) 08/12/2013 10:53 AM CDT Josué Del Vlale MD PhD LAB BLOOD ORDERABLES Fin al Result HISTORICAL RESULTS * Cytomegalovirus (CMV) PCR (08/12/2013 10:50 AM CDT) Blood specimen (specimen) (Unknown) 08/12/2013 10:50 AM CDT 08/12/2013 1:06 PM CDT Impressions HISTORICAL RESULTS - 08/13/2013 8:09 AM CDT This assay is based on quantitative real-time PCR. ??The primers used amplify a conserved 61 bp region of the DNA polymerase gene of human CMV. ??Based on data from the [facility], these primers do not amplify any of the other seven human herpes viruses or human DNA sequences. ??It is thought that close to 100% of CMV strains will amplify with these primers, although genotypic sequence variations could result in a false negative result. This assay expresses results in units of CMV genome copies per ml of blood. ??The theoretical lower limit of detection of the assay is 200 copies/ml. ??The assay is accurate for quantitation in the range 2,000-1,250,000 genome copies/ml. ??Specimens found to have detectable CMV DNA beneath the level of accurate quantitation are reported as CMV DNA detected. ??Unable to quantitate because the level of viral DNA is below the level of accurate quantitation (<2,000 copies/ml) . ??If the specimen is found to be positive with greater than 1,250,000 genome copies/ml, a preliminary report is issued stating Positive: >1,250,000 copies/ml , and the specimen is subsequently retested after dilution to determine the actual copy number. Currently, there are no accepted standards for correlating specific copy numbers with CMV disease. ??Studies in our laboratory have shown that the quantitative assay is more sensitive than the qualitative PCR and the shell vial culture methods previously employed. ??In these studies, positive results ranged from 600 to 35,000,000 copies/ml. ??When the quantitative assay was positive but below the level of accurate quantitation, the qualitative PCR and culture assays were usually negative. ??At a level of 4,000 copies/ml, approximately 50% of qualitative PCR assays were positive. ??In these evaluations, the shell vial culture was only positive at levels above 15,000 copies/ml. General Comments: This test was developed and its performance characteristics determined by [facility]. ??It has not been cleared or approved by the U.S. Food and Drug Administration. ?? Current interpretive data was last revised on 2009. Narrative HISTORICAL RESULTS - 08/13/2013 8:09 AM CDT Negative (<200 copies/ml) Historical Provider MD LAB MICROBIOLOGY - GENERA L ORDERABLES Final Result Performing Organization Address City/[facility] Co de Phone Number HISTORICAL RESULTS * Blood tacrolimus (FK-506) drug level (08/12/2013 10:50 AM CDT) Tacrolimus 1.6 ng/ml HISTORICA L RESULTS Comment: Interpretive Data This test was developed using an analyte specific reagent. ??Its performance characteristics were determined by the [facility] in a manner consistent with CLIA requirements. This test has not been cleared or approved by the U.S. Food and Drug Administration. Current interpretive data was last revised on 2012. Blood specimen (specimen) 08/12/2013 10:50 AM CDT Josué Del Valle MD PhD LAB BLOOD ORDERABLES Fin al Result Performing Organization Address City/State/[facility] Co de Phone Number HISTORICAL RESULTS * (ABNORMAL) Plasma comprehensive metabolic panel (08/12/2013 10:50 AM CDT) Sodium 138 135 - 145 mmol/L HISTORICAL RESULTS K, pl 4.5 3.3 - 4.9 mmol/L HISTORICAL RESULTS Chloride 103 97 - 110 mmol/L HISTORICAL RESULTS CO2 26 22 - 32 mmol/L HISTORICAL RESULTS A. gap 9 0 - 16 mmol/L HISTORICAL RESULTS Glucose 310(H) 70 - 199 mg/dl HISTORICAL RESULTS BUN 14 8 - 25 mg/dl HISTORICAL RESULTS Creatinine 0.81 0.70 - 1.30 mg/dl HISTORICAL RESULTS Calcium 9.2 8.6 - 10.3 mg/dl HISTORICAL RESULTS Protein, pl 6.7 6.5 - 8.5 g/dl HISTORICAL RESULTS Alb 4.0 3.6 - 5.0 g/dl HISTORICAL RESULTS Bilirubin 0.4 0.3 - 1.1 mg/dl HISTORICAL RESULTS Alk phos 98 38 - 126 Units/L HISTORICAL RESULTS AST 22 11 - 47 Units/L HISTORICAL RESULTS ALT 43 7 - 53 Units/L HISTORICAL RESULTS Plasma 08/12/2013 10:5 0 AM CDT Josué Del Valle MD PhD LAB BLOOD ORDERABLES Fin al Result Performing Organization Address [facility] de Phone Number HISTORICAL RESULTS * Serum lactate dehydrogenase (LDH) (08/12/2013 10:50 AM CDT) Lactate dehydrogenase (LDH) 221 100 - 250 Units/L HISTORICAL RESULTS Serum 08/12/2013 10:5 0 AM CDT Josué Del Valle MD PhD LAB BLOOD ORDERABLES Fin al Result Performing Organization Address [facility] de Phone Number HISTORICAL RESULTS * Serum uric acid (08/12/2013 10:50 AM CDT) Uric acid 4.4 3.0 - 8.0 mg/dl HISTORICAL RESULTS Serum 08/12/2013 10:5 0 AM CDT Josué Del Valle MD PhD LAB BLOOD ORDERABLES Fin al Result Performing Organization Address [facility] de Phone Number HISTORICAL RESULTS * Serum magnesium (08/12/2013 10:50 AM CDT) Magnesium 1.8 1.4 - 2.5 mg/dl HISTORICAL RESULTS Serum 08/12/2013 10:5 0 AM CDT Josué Del Valle MD PhD LAB BLOOD ORDERABLES Fin al Result HISTORICAL RESULTS * All Microbiology Report Section (08/12/2013 12:00 AM CDT) 08/12/2013 Narrative HISTORICAL RESULTS - 09/22/2013 10:58 AM WEAVING INSTRUCTOR ? [facility] ?[address] [facility] [address] ?[place], [place] [address] ? Patient Name: ??JONES BRI Denton ? Med Rec Number: [id number] ? Fin Number: ?[id number] ? Date: ?1965 ? Sex/Age: ? Male 47 years ? Admit Date: ?11/18/2012 ? Discharge Date: 11/17/2013 ? Doctor: ?Josué Del Valle ? Facility: ?[facility] ? Location: ?BCC ?* Abnormal ??A Alert ??f Footnote ??^ Corrected ??L Low ??H High ?i Interp Data ??@ Ref Lab ? Chart Type:Cumulative ?* * * * MICROBIOLOGY - MOLECULAR TESTING * * * * ?PROCEDURE: Cytomegalovirus PCR, Blood ? SOURCE: Blood ? COLLECTED: 08/12/13 ??1050 ?BODY SITE: ? STARTED: 08/12/13 ??1307 ? FREE TEXT SOURCE: ? FINAL REPORT ? REPORTED: 08/13/13 0809 ? Negative (<200 copies/ml) ? ORDER COMMENTS ? (1)Testing performed by: [facility], ? [place]. ??[id number]. ?* * * ??Interpretive Results ??* * * ? (1)This assay is based on quantitative real-time PCR. ??The primers ? used amplify a conserved 61 bp region of the DNA polymerase gene ? of human CMV. ??Based on data from the [facility], these primers do not amplify any ? of the other seven human herpes viruses or human DNA sequences. ? It is thought that close to 100% of CMV strains will amplify ? with these primers, although genotypic sequence variations could ? result in a false negative result. This assay expresses results ? in units of CMV genome copies per ml of blood. ??The theoretical ? lower limit of detection of the assay is 200 copies/ml. ??The ? assay is accurate for quantitation in the range 2,000-1,250,000 ? genome copies/ml. ??Specimens found to have detectable CMV DNA ? beneath the level of accurate quantitation are reported as CMV ? DNA detected. ??Unable to quantitate because the level of viral ? DNA is below the level of accurate quantitation (<2,000 ? copies/ml) . ??If the specimen is found to be positive with ? greater than 1,250,000 genome copies/ml, a preliminary report is ? issued stating Positive: >1,250,000 copies/ml , and the ? specimen is subsequently retested after dilution to determine ? the actual copy number. Currently, there are no accepted ? standards for correlating specific copy numbers with CMV disease. ? Studies in our laboratory have shown that the quantitative ? assay is more sensitive than the qualitative PCR and the shell ? vial culture methods previously employed. ??In these studies, ? positive results ranged from 600 to 35,000,000 copies/ml. ??When ? the quantitative assay was positive but below the level of ? accurate quantitation, the qualitative PCR and culture assays ? were usually negative. ??At a level of 4,000 copies/ml, ? approximately 50% of qualitative PCR assays were positive. ??In ? these evaluations, the shell vial culture was only positive at ? levels above 15,000 copies/ml.General Comments: This test was ? developed and its performance characteristics determined by . ? [facility]. ??It has not been cleared ? or approved by the U.S. Food and Drug Administration. ??Current ? interpretive data was last revised on 2009. ? Historical Provider LAB MICROBIOLOGY - GENERA L ORDERABLES Final Result Performing Organization Address [facility] de Phone Number HISTORICAL RESULTS * Plasma prothrombin time (PT) (07/15/2013 11:28 AM CDT) Prothrombin time (PT) 9.4 9.0 - 12.0 seconds HISTORICAL RESULTS INR 0.90 0.90 - 1.20 HISTORIC AL RESULTS Comment: Interpretive Data Inpatient therapeutic ranges* Atrial fibrillation ?2.0-3.0 INR Venous thrombo-embolism ?2.0-3.0 INR Bioprosthetic heart valve ?* Mechanical heart valve, bileaflet or tilting disk,aortic position ? 2.0-3.0 INR All other,or bileaflet or tilting disk, in mitral position ? 2.5-3.5 INR *See the pharmacy resource directory (PHRED) for an updated copy of the Tool Book at [email or web address] Current Interpretive Data was last revised 2012. Plasma 07/15/2013 11:2 8 AM CDT Josué Del Valle MD PhD LAB BLOOD ORDERABLES Fin al Result Performing Organization Address [facility] de Phone Number HISTORICAL RESULTS * (ABNORMAL) Blood cell count [CBC] panel, 7 CAM (07/15/2013 11:28 AM CDT) WBC 11.2(H) 3.8 - 9.8 K/cumm HISTORICAL RESULTS RBC 3.97(L) 4.50 - 5.70 M/cumm HISTORICAL RESULTS Hgb 14.9 13.8 - 17.2 g/dl HISTORICAL RESULTS Hct 44.0 40.7 - 50.3 % HISTORICAL RESULTS MCV 110.7(H) 80.0 - 97.6 fl HISTORICAL RESULTS MCH 37.4(H) 26.7 - 33.7 pg HISTORICAL RESULTS Comment:{Result consistent w ith previously reported values.} MCHC 33.8 32.7 - 35.5 g/dl HISTORICAL RESULTS Rdw 13.6 11.8 - 14.6 SD HISTORICAL RESULTS Platelets 237 140 - 440 K/cumm HISTORICAL RESULTS MPV 7.4 6.8 - 10.4 fl HISTORICAL RESULTS Neutrophils 88.8(H) 38.7 - 74.5 % HISTORICAL RESULTS Lymphocytes 8.8(L) 20.0 - 54.3 % HISTORICAL RESULTS Monos 1.6(L) 4.3 - 13.5 % HISTORICAL RESULTS Eosinophils 0.1 0.0 - 6.0 % HISTORICAL RESULTS Basophils 0.7 0.0 - 3.0 % HISTORICAL RESULTS Neutrophils, abs 10.0(H) 1.8 - 6.6 K/cumm HISTORICAL RESULTS Lymphocytes, abs 1.0(L) 1.2 - 3.3 K/cumm HISTORICAL RESULTS Monocytes, absolute 0.2 0.2 - 1.2 K/cumm HISTORICAL RESULTS Eosinophils, abs 0.0 0.0 - 0.5 K/cumm HISTORICAL RESULTS Basophils, abs 0.1 0.0 - 0.2 K/cumm HISTORICAL RESULTS Blood specimen (specimen) 07/15/2013 11:28 AM CDT us Josué Del Valle MD PhD LAB BLOOD ORDERABLES Fin al Result HISTORICAL RESULTS * Cytomegalovirus (CMV) PCR (07/06/2013 10:14 AM CDT) Blood specimen (specimen) (Unknown) 07/06/2013 10:14 AM CDT 07/06/2013 12:33 PM CDT Impressions HISTORICAL RESULTS - 07/08/2013 7:08 AM CDT This assay is based on quantitative real-time PCR. ??The primers used amplify a conserved 61 bp region of the DNA polymerase gene of human CMV. ??Based on data from the [facility], these primers do not amplify any of the other seven human herpes viruses or human DNA sequences. ??It is thought that close to 100% of CMV strains will amplify with these primers, although genotypic sequence variations could result in a false negative result. This assay expresses results in units of CMV genome copies per ml of blood. ??The theoretical lower limit of detection of the assay is 200 copies/ml. ??The assay is accurate for quantitation in the range 2,000-1,250,000 genome copies/ml. ??Specimens found to have detectable CMV DNA beneath the level of accurate quantitation are reported as CMV DNA detected. ??Unable to quantitate because the level of viral DNA is below the level of accurate quantitation (<2,000 copies/ml) . ??If the specimen is found to be positive with greater than 1,250,000 genome copies/ml, a preliminary report is issued stating Positive: >1,250,000 copies/ml , and the specimen is subsequently retested after dilution to determine the actual copy number. Currently, there are no accepted standards for correlating specific copy numbers with CMV disease. ??Studies in our laboratory have shown that the quantitative assay is more sensitive than the qualitative PCR and the shell vial culture methods previously employed. ??In these studies, positive results ranged from 600 to 35,000,000 copies/ml. ??When the quantitative assay was positive but below the level of accurate quantitation, the qualitative PCR and culture assays were usually negative. ??At a level of 4,000 copies/ml, approximately 50% of qualitative PCR assays were positive. ??In these evaluations, the shell vial culture was only positive at levels above 15,000 copies/ml. General Comments: This test was developed and its performance characteristics determined by [facility]. ??It has not been cleared or approved by the U.S. Food and Drug Administration. ?? Current interpretive data was last revised on 2009. Narrative HISTORICAL RESULTS - 07/08/2013 7:08 AM CDT Negative (<200 copies/ml) us Historical Provider LAB MICROBIOLOGY - GENERA L ORDERABLES Final Result HISTORICAL RESULTS * Blood tacrolimus (FK-506) drug level (07/06/2013 10:14 AM CDT) Tacrolimus 1.2 ng/ml HISTORICA L RESULTS Comment: Interpretive Data This test was developed using an analyte specific reagent. ??Its performance characteristics were determined by the [facility] in a manner consistent with CLIA requirements. This test has not been cleared or approved by the U.S. Food and Drug Administration. Current interpretive data was last revised on 2012. Blood specimen (specimen) 07/06/2013 10:14 AM CDT Josué Del Valle MD PhD LAB BLOOD ORDERABLES Fin al Result Performing Organization Address [facility] de Phone Number HISTORICAL RESULTS * (ABNORMAL) Plasma comprehensive metabolic panel (07/06/2013 10:14 AM CDT) Sodium 139 135 - 145 mmol/L HISTORICAL RESULTS K, pl 3.6 3.3 - 4.9 mmol/L HISTORICAL RESULTS Chloride 103 97 - 110 mmol/L HISTORICAL RESULTS CO2 27 22 - 32 mmol/L HISTORICAL RESULTS A. gap 9 0 - 16 mmol/L HISTORICAL RESULTS Glucose 236(H) 70 - 199 mg/dl HISTORICAL RESULTS BUN 12 8 - 25 mg/dl HISTORICAL RESULTS Creatinine 0.63(L) 0.70 - 1.30 mg/dl HISTORICAL RESULTS Calcium 9.6 8.6 - 10.3 mg/dl HISTORICAL RESULTS Protein, pl 6.7 6.5 - 8.5 g/dl HISTORICAL RESULTS Alb 4.0 3.6 - 5.0 g/dl HISTORICAL RESULTS Bilirubin 0.4 0.3 - 1.1 mg/dl HISTORICAL RESULTS Alk phos 114 38 - 126 Units/L HISTORICAL RESULTS AST 20 11 - 47 Units/L HISTORICAL RESULTS ALT 42 7 - 53 Units/L HISTORICAL RESULTS Plasma 07/06/2013 10:1 4 AM CDT Josué Del Valle MD PhD LAB BLOOD ORDERABLES Fin al Result Performing Organization Address City/[facility]/ZIP Co de Phone Number HISTORICAL RESULTS * Serum lactate dehydrogenase (LDH) (07/06/2013 10:14 AM CDT) Lactate dehydrogenase (LDH) 213 100 - 250 Units/L HISTORICAL RESULTS Serum 07/06/2013 10:1 4 AM CDT Josué Del Valle MD PhD LAB BLOOD ORDERABLES Fin al Result Performing Organization Address City/[facility] de Phone Number HISTORICAL RESULTS * Serum uric acid (07/06/2013 10:14 AM CDT) Uric acid 4.1 3.0 - 8.0 mg/dl HISTORICAL RESULTS Serum 07/06/2013 10:1 4 AM CDT Josué Del Valle MD PhD LAB BLOOD ORDERABLES Fin al Result Performing Organization Address [facility] de Phone Number HISTORICAL RESULTS * Serum magnesium (07/06/2013 10:14 AM CDT) Magnesium 1.7 1.4 - 2.5 mg/dl HISTORICAL RESULTS Serum 07/06/2013 10:1 4 AM CDT Josué Del Valle MD PhD LAB BLOOD ORDERABLES Fin al Result Performing Organization Address [facility] de Phone Number HISTORICAL RESULTS * (ABNORMAL) Blood cell morphologic exam (07/06/2013 10:14 AM CDT) Neutrophilic bands 1 0 - 6 % HISTORICAL RESULTS Neutrophils 63 44 - 80 % HISTORIC AL RESULTS Lymphocytes 28 8 - 44 % HISTORIC AL RESULTS Atypical lymphs 3(H) 0 - 0 % HIST ORICAL RESULTS Abnormal lymphs 1(H) 0 - 0 % HIST ORICAL RESULTS Young lymph 2(H) 0 - 0 % HISTORIC AL RESULTS Monos 2 2 - 8 % HISTORICAL RESULTS WBC counted 100 HISTORIC AL RESULTS Platelet estimate Adequate Adequate HI STORICAL RESULTS Platelet morphology Few Enlarged(A) HISTORICAL RESULTS Polychromasia Trace None Seen HISTOR ICAL RESULTS Anisocytosis Trace None Seen HISTORI RHODA RESULTS Poikilocytosis Trace None Seen HISTO RICAL RESULTS Blood specimen (specimen) 07/06/2013 10:14 AM CDT us Josué Del Valle MD PhD LAB BLOOD ORDERABLES Fin al Result HISTORICAL RESULTS * (ABNORMAL) Blood cell count [CBC] panel, 7 CAM (07/06/2013 10:14 AM CDT) Platelets 208 140 - 440 K/cumm HISTORICAL RESULTS WBC 12.5(H) 3.8 - 9.8 K/cumm HISTORICAL RESULTS MPV 8.2 6.8 - 10.4 fl HISTORICAL RESULTS RBC 3.81(L) 4.50 - 5.70 M/cumm HISTORICAL RESULTS Hgb 14.6 13.8 - 17.2 g/dl HISTORICAL RESULTS Hct 42.7 40.7 - 50.3 % HISTORICAL RESULTS MCV 111.9(H) 80.0 - 97.6 fl HISTORICAL RESULTS MCH 38.4(H) 26.7 - 33.7 pg HISTORICAL RESULTS MCHC 34.3 32.7 - 35.5 g/dl HISTORICAL RESULTS Rdw 14.3 11.8 - 14.6 SD HISTORICAL RESULTS Blood specimen (specimen) 07/06/2013 10:14 AM CDT us Josué Del Valle MD PhD LAB BLOOD ORDERABLES Fin al Result HISTORICAL RESULTS * All Microbiology Report Section (07/06/2013 12:00 AM CDT) 07/06/2013 Narrative HISTORICAL RESULTS - 08/13/2013 12:04 PM CDT ? [facility] ?[facility] [address] [facility] [address] ? Patient Name: ??BRI JONES ? Med Rec Number: [id number] ? Fin Number: ?[id number] ? Date: ?1965 ? Sex/Age: ? Male 47 years ? Admit Date: ?11/18/2012 ? Discharge Date: 11/17/2013 ? Doctor: ?Jessica, Josué F ? Facility: ?[facility] ? Location: ?BCC ?* Abnormal ??A Alert ??f Footnote ??^ Corrected ??L Low ??H High ?i Interp Data ??@ Ref Lab ? Chart Type:Cumulative ?* * * * MICROBIOLOGY - MOLECULAR TESTING * * * * ?PROCEDURE: Cytomegalovirus PCR, Blood ? SOURCE: Blood ? COLLECTED: 07/06/13 ??1014 ?BODY SITE: ? STARTED: 07/06/13 ??1234 ? FREE TEXT SOURCE: ? FINAL REPORT ? REPORTED: 07/08/13 0708 ? Negative (<200 copies/ml) ? ORDER COMMENTS ? (1)Testing performed by: [facility], ? [place]. ??[id number]. ?* * * ??Interpretive Results ??* * * ? (1)This assay is based on quantitative real-time PCR. ??The primers ? used amplify a conserved 61 bp region of the DNA polymerase gene ? of human CMV. ??Based on data from the [facility], these primers do not amplify any ? of the other seven human herpes viruses or human DNA sequences. ? It is thought that close to 100% of CMV strains will amplify ? with these primers, although genotypic sequence variations could ? result in a false negative result. This assay expresses results ? in units of CMV genome copies per ml of blood. ??The theoretical ? lower limit of detection of the assay is 200 copies/ml. ??The ? assay is accurate for quantitation in the range 2,000-1,250,000 ? genome copies/ml. ??Specimens found to have detectable CMV DNA ? beneath the level of accurate quantitation are reported as CMV ? DNA detected. ??Unable to quantitate because the level of viral ? DNA is below the level of accurate quantitation (<2,000 ? copies/ml) . ??If the specimen is found to be positive with ? greater than 1,250,000 genome copies/ml, a preliminary report is ? issued stating Positive: >1,250,000 copies/ml , and the ? specimen is subsequently retested after dilution to determine ? the actual copy number. Currently, there are no accepted ? standards for correlating specific copy numbers with CMV disease. ? Studies in our laboratory have shown that the quantitative ? assay is more sensitive than the qualitative PCR and the shell ? vial culture methods previously employed. ??In these studies, ? positive results ranged from 600 to 35,000,000 copies/ml. ??When ? the quantitative assay was positive but below the level of ? accurate quantitation, the qualitative PCR and culture assays ? were usually negative. ??At a level of 4,000 copies/ml, ? approximately 50% of qualitative PCR assays were positive. ??In ? these evaluations, the shell vial culture was only positive at ? levels above 15,000 copies/ml.General Comments: This test was ? developed and its performance characteristics determined by . ? [facility]. ??It has not been cleared ? or approved by the U.S. Food and Drug Administration. ??Current ? interpretive data was last revised on 2009. ? us Historical Provider LAB MICROBIOLOGY - GENERA L ORDERABLES Final Result HISTORICAL RESULTS * (ABNORMAL) Blood cell count [CBC] panel, 7 CAM (05/25/2013 10:25 AM CDT) WBC 11.9(H) 3.8 - 9.8 K/cumm HISTORICAL RESULTS RBC 4.17(L) 4.50 - 5.70 M/cumm HISTORICAL RESULTS Hgb 15.5 13.8 - 17.2 g/dl HISTORICAL RESULTS Hct 46.0 40.7 - 50.3 % HISTORICAL RESULTS MCV 110.2(H) 80.0 - 97.6 fl HISTORICAL RESULTS MCH 37.3(H) 26.7 - 33.7 pg HISTORICAL RESULTS Comment:{Result consistent w ith previously reported values.} MCHC 33.8 32.7 - 35.5 g/dl HISTORICAL RESULTS Rdw 13.8 11.8 - 14.6 SD HISTORICAL RESULTS Platelets 197 140 - 440 K/cumm HISTORICAL RESULTS MPV 8.6 6.8 - 10.4 fl HISTORICAL RESULTS Neutrophils 93.0(H) 38.7 - 74.5 % HISTORICAL RESULTS Lymphocytes 4.8(L) 20.0 - 54.3 % HISTORICAL RESULTS Monos 1.8(L) 4.3 - 13.5 % HISTORICAL RESULTS Eosinophils 0.1 0.0 - 6.0 % HISTORICAL RESULTS Basophils 0.3 0.0 - 3.0 % HISTORICAL RESULTS Neutrophils, abs 11.1(H) 1.8 - 6.6 K/cumm HISTORICAL RESULTS Lymphocytes, abs 0.6(L) 1.2 - 3.3 K/cumm HISTORICAL RESULTS Monocytes, absolute 0.2 0.2 - 1.2 K/cumm HISTORICAL RESULTS Eosinophils, abs 0.0 0.0 - 0.5 K/cumm HISTORICAL RESULTS Basophils, abs 0.0 0.0 - 0.2 K/cumm HISTORICAL RESULTS Blood specimen (specimen) 05/25/2013 10:25 AM CDT Josué Del Valle MD PhD LAB BLOOD ORDERABLES Fin al Result HISTORICAL RESULTS * Cytomegalovirus (CMV) PCR (05/25/2013 10:23 AM CDT) Blood specimen (specimen) (Unknown) 05/25/2013 10:23 AM CDT 05/25/2013 11:48 AM CDT Impressions HISTORICAL RESULTS - 05/26/2013 6:38 AM CDT This assay is based on quantitative real-time PCR. ??The primers used amplify a conserved 61 bp region of the DNA polymerase gene of human CMV. ??Based on data from the [facility], these primers do not amplify any of the other seven human herpes viruses or human DNA sequences. ??It is thought that close to 100% of CMV strains will amplify with these primers, although genotypic sequence variations could result in a false negative result. This assay expresses results in units of CMV genome copies per ml of blood. ??The theoretical lower limit of detection of the assay is 200 copies/ml. ??The assay is accurate for quantitation in the range 2,000-1,250,000 genome copies/ml. ??Specimens found to have detectable CMV DNA beneath the level of accurate quantitation are reported as CMV DNA detected. ??Unable to quantitate because the level of viral DNA is below the level of accurate quantitation (<2,000 copies/ml) . ??If the specimen is found to be positive with greater than 1,250,000 genome copies/ml, a preliminary report is issued stating Positive: >1,250,000 copies/ml , and the specimen is subsequently retested after dilution to determine the actual copy number. Currently, there are no accepted standards for correlating specific copy numbers with CMV disease. ??Studies in our laboratory have shown that the quantitative assay is more sensitive than the qualitative PCR and the shell vial culture methods previously employed. ??In these studies, positive results ranged from 600 to 35,000,000 copies/ml. ??When the quantitative assay was positive but below the level of accurate quantitation, the qualitative PCR and culture assays were usually negative. ??At a level of 4,000 copies/ml, approximately 50% of qualitative PCR assays were positive. ??In these evaluations, the shell vial culture was only positive at levels above 15,000 copies/ml. General Comments: This test was developed and its performance characteristics determined by [facility]. ??It has not been cleared or approved by the U.S. Food and Drug Administration. ?? Current interpretive data was last revised on 2009. Narrative HISTORICAL RESULTS - 05/26/2013 6:38 AM CDT Negative (<200 copies/ml) us Historical Provider LAB MICROBIOLOGY - GENERA L ORDERABLES Final Result HISTORICAL RESULTS * Blood tacrolimus (FK-506) drug level (05/25/2013 10:23 AM CDT) Pathologist [facility] Tacrolimus 2.4 ng/ml HISTORICA L RESULTS Comment: Interpretive Data This test was developed using an analyte specific reagent. ??Its performance characteristics were determined by the [facility] in a manner consistent with CLIA requirements. This test has not been cleared or approved by the U.S. Food and Drug Administration. Current interpretive data was last revised on 2012. Blood specimen (specimen) 05/25/2013 10:23 AM CDT Josué Del Valle MD PhD LAB BLOOD ORDERABLES Fin al Result HISTORICAL RESULTS * (ABNORMAL) Plasma comprehensive metabolic panel (05/25/2013 10:23 AM CDT) Pathologist [facility] Sodium 136 135 - 145 mmol/L HISTORICAL RESULTS K, pl 4.7 3.3 - 4.9 mmol/L HISTORICAL RESULTS Chloride 101 97 - 110 mmol/L HISTORICAL RESULTS CO2 24 22 - 32 mmol/L HISTORICAL RESULTS A. gap 11 0 - 16 mmol/L HISTORICAL RESULTS Glucose 312(H) 65 - 199 mg/dl HISTORICAL RESULTS BUN 12 8 - 25 mg/dl HISTORICAL RESULTS Creatinine 0.70 0.70 - 1.30 mg/dl HISTORICAL RESULTS Calcium 9.9 8.6 - 10.3 mg/dl HISTORICAL RESULTS Protein, pl 7.0 6.5 - 8.5 g/dl HISTORICAL RESULTS Alb 4.1 3.6 - 5.0 g/dl HISTORICAL RESULTS Bilirubin 0.5 0.3 - 1.1 mg/dl HISTORICAL RESULTS Alk phos 134(H) 38 - 126 Units/L HISTORICAL RESULTS AST 34 11 - 47 Units/L HISTORICAL RESULTS ALT 45 7 - 53 Units/L HISTORICAL RESULTS Plasma 05/25/2013 10:2 3 AM CDT Josué Del Valle MD PhD LAB BLOOD ORDERABLES Fin al Result Performing Organization Address City/[facility]/ZIP Co de Phone Number HISTORICAL RESULTS * (ABNORMAL) Serum lactate dehydrogenase (LDH) (05/25/2013 10:23 AM CDT) Lactate dehydrogenase (LDH) 274(H) 100 - 250 Units/L HISTORICAL RESULTS Serum 05/25/2013 10:2 3 AM CDT Josué Del Valle MD PhD LAB BLOOD ORDERABLES Fin al Result Performing Organization Address [facility] de Phone Number HISTORICAL RESULTS * Serum uric acid (05/25/2013 10:23 AM CDT) Pathologist [facility] Uric acid 5.5 3.0 - 8.0 mg/dl HISTORICAL RESULTS Serum 05/25/2013 10:2 3 AM CDT Josué Del Valle MD PhD LAB BLOOD ORDERABLES Fin al Result Performing Organization Address [facility] de Phone Number HISTORICAL RESULTS * Serum magnesium (05/25/2013 10:23 AM CDT) Pathologist [facility] Magnesium 1.6 1.4 - 2.5 mg/dl HISTORICAL RESULTS Serum 05/25/2013 10:2 3 AM CDT Josué Del Valle MD PhD LAB BLOOD ORDERABLES Fin al Result Performing Organization Address [facility] Phone Number HISTORICAL RESULTS * All Microbiology Report Section (05/25/2013 12:00 AM CDT) 05/25/2013 Narrative HISTORICAL RESULTS - 07/08/2013 11:24 AM CDT ? [facility] ?[address] [facility] [address] ?[place], [place] [address] ? Patient Name: ??BRI JONES ? Med Rec Number: [id number] ? Fin Number: ?[id number] ? Date: ?1965 ? Sex/Age: ? Male 47 years ? Admit Date: ?11/18/2012 ? Discharge Date: 11/17/2013 ? Doctor: ?DiPersio, Josué F ? Facility: ?[facility] ? Location: ?BCC ?* Abnormal ??A Alert ??f Footnote ??^ Corrected ??L Low ??H High ?i Interp Data ??@ Ref Lab ? Chart Type:Cumulative ?* * * * MICROBIOLOGY - MOLECULAR TESTING * * * * ?PROCEDURE: Cytomegalovirus PCR, Blood ? SOURCE: Blood ? COLLECTED: 05/25/13 ??1023 ?BODY SITE: ? STARTED: 05/25/13 ??1148 ? FREE TEXT SOURCE: ? FINAL REPORT ? REPORTED: 05/26/13 0638 ? Negative (<200 copies/ml) ? ORDER COMMENTS ? (1)Testing performed by: [facility], ? [place]. ??[id number]. ?* * * ??Interpretive Results ??* * * ? (1)This assay is based on quantitative real-time PCR. ??The primers ? used amplify a conserved 61 bp region of the DNA polymerase gene ? of human CMV. ??Based on data from the [facility], these primers do not amplify any ? of the other seven human herpes viruses or human DNA sequences. ? It is thought that close to 100% of CMV strains will amplify ? with these primers, although genotypic sequence variations could ? result in a false negative result. This assay expresses results ? in units of CMV genome copies per ml of blood. ??The theoretical ? lower limit of detection of the assay is 200 copies/ml. ??The ? assay is accurate for quantitation in the range 2,000-1,250,000 ? genome copies/ml. ??Specimens found to have detectable CMV DNA ? beneath the level of accurate quantitation are reported as CMV ? DNA detected. ??Unable to quantitate because the level of viral ? DNA is below the level of accurate quantitation (<2,000 ? copies/ml) . ??If the specimen is found to be positive with ? greater than 1,250,000 genome copies/ml, a preliminary report is ? issued stating Positive: >1,250,000 copies/ml , and the ? specimen is subsequently retested after dilution to determine ? the actual copy number. Currently, there are no accepted ? standards for correlating specific copy numbers with CMV disease. ? Studies in our laboratory have shown that the quantitative ? assay is more sensitive than the qualitative PCR and the shell ? vial culture methods previously employed. ??In these studies, ? positive results ranged from 600 to 35,000,000 copies/ml. ??When ? the quantitative assay was positive but below the level of ? accurate quantitation, the qualitative PCR and culture assays ? were usually negative. ??At a level of 4,000 copies/ml, ? approximately 50% of qualitative PCR assays were positive. ??In ? these evaluations, the shell vial culture was only positive at ? levels above 15,000 copies/ml.General Comments: This test was ? developed and its performance characteristics determined by . ? [facility]. ??It has not been cleared ? or approved by the U.S. Food and Drug Administration. ??Current ? interpretive data was last revised on 2009. ? us Historical Provider LAB MICROBIOLOGY - GENERA L ORDERABLES Final Result HISTORICAL RESULTS * Cytomegalovirus (CMV) PCR (04/03/2013 1:05 PM CDT) Blood specimen (specimen) (Unknown) 04/03/2013 1:05 PM CDT 04/03/2013 3:18 PM CDT Impressions HISTORICAL RESULTS - 04/04/2013 5:45 AM CDT This assay is based on quantitative real-time PCR. ??The primers used amplify a conserved 61 bp region of the DNA polymerase gene of human CMV. ??Based on data from the [facility], these primers do not amplify any of the other seven human herpes viruses or human DNA sequences. ??It is thought that close to 100% of CMV strains will amplify with these primers, although genotypic sequence variations could result in a false negative result. This assay expresses results in units of CMV genome copies per ml of blood. ??The theoretical lower limit of detection of the assay is 200 copies/ml. ??The assay is accurate for quantitation in the range 2,000-1,250,000 genome copies/ml. ??Specimens found to have detectable CMV DNA beneath the level of accurate quantitation are reported as CMV DNA detected. ??Unable to quantitate because the level of viral DNA is below the level of accurate quantitation (<2,000 copies/ml) . ??If the specimen is found to be positive with greater than 1,250,000 genome copies/ml, a preliminary report is issued stating Positive: >1,250,000 copies/ml , and the specimen is subsequently retested after dilution to determine the actual copy number. Currently, there are no accepted standards for correlating specific copy numbers with CMV disease. ??Studies in our laboratory have shown that the quantitative assay is more sensitive than the qualitative PCR and the shell vial culture methods previously employed. ??In these studies, positive results ranged from 600 to 35,000,000 copies/ml. ??When the quantitative assay was positive but below the level of accurate quantitation, the qualitative PCR and culture assays were usually negative. ??At a level of 4,000 copies/ml, approximately 50% of qualitative PCR assays were positive. ??In these evaluations, the shell vial culture was only positive at levels above 15,000 copies/ml. General Comments: This test was developed and its performance characteristics determined by [facility]. ??It has not been cleared or approved by the U.S. Food and Drug Administration. ?? Current interpretive data was last revised on 2009. Narrative HISTORICAL RESULTS - 04/04/2013 5:45 AM CDT Negative (<200 copies/ml) us Historical Provider LAB MICROBIOLOGY - GENERA L ORDERABLES Final Result HISTORICAL RESULTS * Blood tacrolimus (FK-506) drug level (04/03/2013 1:05 PM CDT) Tacrolimus 2.2 ng/ml HISTORICA L RESULTS Comment: Interpretive Data This test was developed using an analyte specific reagent. ??Its performance characteristics were determined by the [facility] in a manner consistent with CLIA requirements. This test has not been cleared or approved by the U.S. Food and Drug Administration. Current interpretive data was last revised on 2012. Blood specimen (specimen) 04/03/2013 1:05 PM CDT Josué Del Valle MD PhD LAB BLOOD ORDERABLES Fin al Result Performing Organization Address [facility] Co de Phone Number HISTORICAL RESULTS * (ABNORMAL) Plasma comprehensive metabolic panel (04/03/2013 1:05 PM CDT) Sodium 140 135 - 145 mmol/L HISTORICAL RESULTS K, pl 3.8 3.3 - 4.9 mmol/L HISTORICAL RESULTS Chloride 105 97 - 110 mmol/L HISTORICAL RESULTS CO2 24 22 - 32 mmol/L HISTORICAL RESULTS A. gap 11 0 - 16 mmol/L HISTORICAL RESULTS Glucose 128 65 - 199 mg/dl HISTORICAL RESULTS BUN 13 8 - 25 mg/dl HISTORICAL RESULTS Creatinine 0.83 0.70 - 1.30 mg/dl HISTORICAL RESULTS Calcium 9.9 8.6 - 10.3 mg/dl HISTORICAL RESULTS Protein, pl 7.4 6.5 - 8.5 g/dl HISTORICAL RESULTS Alb 4.0 3.6 - 5.0 g/dl HISTORICAL RESULTS Bilirubin 0.4 0.3 - 1.1 mg/dl HISTORICAL RESULTS Alk phos 187(H) 38 - 126 Units/L HISTORICAL RESULTS AST 54(H) 11 - 47 Units/L HISTORICAL RESULTS ALT 93(H) 7 - 53 Units/L HISTORICAL RESULTS Plasma 04/03/2013 1:05 PM CDT Josué Del Valle MD PhD LAB BLOOD ORDERABLES Fin al Result Performing Organization Address City/[facility]/ZIP Co de Phone Number HISTORICAL RESULTS * Serum lactate dehydrogenase (LDH) (04/03/2013 1:05 PM CDT) Lactate dehydrogenase (LDH) 232 100 - 250 Units/L HISTORICAL RESULTS Serum 04/03/2013 1:05 PM CDT Josué Del Valle MD PhD LAB BLOOD ORDERABLES Fin al Result Performing Organization Address [facility] de Phone Number HISTORICAL RESULTS * Serum uric acid (04/03/2013 1:05 PM CDT) Pathologist [facility] Uric acid 6.0 3.0 - 8.0 mg/dl HISTORICAL RESULTS Serum 04/03/2013 1:05 PM CDT Josué Del Valle MD PhD LAB BLOOD ORDERABLES Fin al Result Performing Organization Address [facility] Phone Number HISTORICAL RESULTS * Serum magnesium (04/03/2013 1:05 PM CDT) Pathologist [facility] Magnesium 1.7 1.4 - 2.5 mg/dl HISTORICAL RESULTS Serum 04/03/2013 1:05 PM CDT Result [facility] Josué Del Valle MD PhD LAB BLOOD ORDERABLES Fin al Result Performing Organization Address [facility] Phone Number HISTORICAL RESULTS * (ABNORMAL) Blood hemoglobin A1C (04/03/2013 1:05 PM CDT) Pathologist [facility] Hgb A1C 6.6(H) 4.0 - 6.0 % HISTORICAL RESULTS Estimated average glucose 143 mg/dl HISTORICAL RESULTS Comment: The ADA recommends reporting an estimated Average Glucose (eAG) with all Hemoglobin A1c results using the equation derived from a study of 507 normal and diabetic adults. ??Minority populations were underrepresented and children were not included. ??(Diabetes Care 31:2236-4630, 2008). ??The eAG is not equivalent to a fasting glucose. Blood specimen (specimen) 04/03/2013 1:05 PM CDT Josué Del Valle MD PhD LAB BLOOD ORDERABLES Fin al Result HISTORICAL RESULTS * (ABNORMAL) Blood cell count [CBC] panel, 7 CAM (04/03/2013 1:04 PM CDT) WBC 13.4(H) 3.8 - 9.8 K/cumm HISTORICAL RESULTS RBC 3.85(L) 4.50 - 5.70 M/cumm HISTORICAL RESULTS Hgb 14.1 13.8 - 17.2 g/dl HISTORICAL RESULTS Hct 42.6 40.7 - 50.3 % HISTORICAL RESULTS MCV 110.6(H) 80.0 - 97.6 fl HISTORICAL RESULTS MCH 36.7(H) 26.7 - 33.7 pg HISTORICAL RESULTS MCHC 33.2 32.7 - 35.5 g/dl HISTORICAL RESULTS Rdw 15.2(H) 11.8 - 14.6 SD HISTORICAL RESULTS Platelets 226 140 - 440 K/cumm HISTORICAL RESULTS MPV 8.3 6.8 - 10.4 fl HISTORICAL RESULTS Neutrophils 61.6 38.7 - 74.5 % HISTORICAL RESULTS Lymphocytes 28.9 20.0 - 54.3 % HISTORICAL RESULTS Monos 8.1 4.3 - 13.5 % HISTORICAL RESULTS Eosinophils 0.9 0.0 - 6.0 % HISTORICAL RESULTS Basophils 0.5 0.0 - 3.0 % HISTORICAL RESULTS Neutrophils, abs 8.3(H) 1.8 - 6.6 K/cumm HISTORICAL RESULTS Lymphocytes, abs 3.9(H) 1.2 - 3.3 K/cumm HISTORICAL RESULTS Monocytes, absolute 1.1 0.2 - 1.2 K/cumm HISTORICAL RESULTS Eosinophils, abs 0.1 0.0 - 0.5 K/cumm HISTORICAL RESULTS Basophils, abs 0.1 0.0 - 0.2 K/cumm HISTORICAL RESULTS Blood specimen (specimen) 04/03/2013 1:04 PM CDT Josué Del Valle MD PhD LAB BLOOD ORDERABLES Clark diana Result HISTORICAL RESULTS * All Microbiology Report Section (04/03/2013 12:00 AM CDT) 04/03/2013 Narrative HISTORICAL RESULTS - 05/26/2013 11:09 AM CDT ? [facility] ?[address] [facility] [address] ?[place] [address] ? Patient Name: ??BRI JONES ? Med Rec Number: [id number] ? Fin Number: ?[id number] ? Date: ?1965 ? Sex/Age: ? Male 47 years ? Admit Date: ?11/18/2012 ? Discharge Date: 11/17/2013 ? Doctor: ?Josué Del Valle F ? Facility: ?[facility] ? Location: ?BCC ?* Abnormal ??A Alert ??f Footnote ??^ Corrected ??L Low ??H High ?i Interp Data ??@ Ref Lab ? Chart Type:Cumulative ?* * * * MICROBIOLOGY - MOLECULAR TESTING * * * * ?PROCEDURE: Cytomegalovirus PCR, Blood ? SOURCE: Blood ? COLLECTED: 04/03/13 ??1305 ?BODY SITE: ? STARTED: 04/03/13 ??1518 ? FREE TEXT SOURCE: ? FINAL REPORT ? REPORTED: 04/04/13 0545 ? Negative (<200 copies/ml) ? ORDER COMMENTS ? (1)Testing performed by: [facility], [place], ? [place]. ??[address]. ?* * * ??Interpretive Results ??* * * ? (1)This assay is based on quantitative real-time PCR. ??The primers ? used amplify a conserved 61 bp region of the DNA polymerase gene ? of human CMV. ??Based on data from the [facility], these primers do not amplify any ? of the other seven human herpes viruses or human DNA sequences. ? It is thought that close to 100% of CMV strains will amplify ? with these primers, although genotypic sequence variations could ? result in a false negative result. This assay expresses results ? in units of CMV genome copies per ml of blood. ??The theoretical ? lower limit of detection of the assay is 200 copies/ml. ??The ? assay is accurate for quantitation in the range 2,000-1,250,000 ? genome copies/ml. ??Specimens found to have detectable CMV DNA ? beneath the level of accurate quantitation are reported as CMV ? DNA detected. ??Unable to quantitate because the level of viral ? DNA is below the level of accurate quantitation (<2,000 ? copies/ml) . ??If the specimen is found to be positive with ? greater than 1,250,000 genome copies/ml, a preliminary report is ? issued stating Positive: >1,250,000 copies/ml , and the ? specimen is subsequently retested after dilution to determine ? the actual copy number. Currently, there are no accepted ? standards for correlating specific copy numbers with CMV disease. ? Studies in our laboratory have shown that the quantitative ? assay is more sensitive than the qualitative PCR and the shell ? vial culture methods previously employed. ??In these studies, ? positive results ranged from 600 to 35,000,000 copies/ml. ??When ? the quantitative assay was positive but below the level of ? accurate quantitation, the qualitative PCR and culture assays ? were usually negative. ??At a level of 4,000 copies/ml, ? approximately 50% of qualitative PCR assays were positive. ??In ? these evaluations, the shell vial culture was only positive at ? levels above 15,000 copies/ml.General Comments: This test was ? developed and its performance characteristics determined by ? [facility]. ??It has not been cleared ? or approved by the U.S. Food and Drug Administration. ??Current ? interpretive data was last revised on 2009. ? us Historical Provider LAB MICROBIOLOGY - GENERA L ORDERABLES Final Result HISTORICAL RESULTS * Blood tacrolimus (FK-506) drug level (03/20/2013 1:03 PM CDT) Pathologist [facility] Tacrolimus 2.2 ng/ml HISTORICA L RESULTS Comment: Interpretive Data This test was developed using an analyte specific reagent. ??Its performance characteristics were determined by the [facility] in a manner consistent with CLIA requirements. This test has not been cleared or approved by the U.S. Food and Drug Administration. Current interpretive data was last revised on 2012. Blood specimen (specimen) 03/20/2013 1:03 PM CDT Josué Del Valle MD PhD LAB BLOOD ORDERABLES Fin al Result HISTORICAL RESULTS * (ABNORMAL) Blood cell count [CBC] panel, 7 CAM (03/20/2013 1:03 PM CDT) Pathologist [facility] WBC 12.1(H) 3.8 - 9.8 K/cumm HISTORICAL RESULTS RBC 3.79(L) 4.50 - 5.70 M/cumm HISTORICAL RESULTS Hgb 14.2 13.8 - 17.2 g/dl HISTORICAL RESULTS Hct 42.2 40.7 - 50.3 % HISTORICAL RESULTS MCV 111.4(H) 80.0 - 97.6 fl HISTORICAL RESULTS MCH 37.5(H) 26.7 - 33.7 pg HISTORICAL RESULTS MCHC 33.7 32.7 - 35.5 g/dl HISTORICAL RESULTS Rdw 16.2(H) 11.8 - 14.6 SD HISTORICAL RESULTS Platelets 172 140 - 440 K/cumm HISTORICAL RESULTS MPV 8.5 6.8 - 10.4 fl HISTORICAL RESULTS Neutrophils 58.7 38.7 - 74.5 % HISTORICAL RESULTS Lymphocytes 29.8 20.0 - 54.3 % HISTORICAL RESULTS Monos 9.2 4.3 - 13.5 % HISTORICAL RESULTS Eosinophils 1.3 0.0 - 6.0 % HISTORICAL RESULTS Basophils 1.0 0.0 - 3.0 % HISTORICAL RESULTS Neutrophils, abs 7.1(H) 1.8 - 6.6 K/cumm HISTORICAL RESULTS Lymphocytes, abs 3.6(H) 1.2 - 3.3 K/cumm HISTORICAL RESULTS Monocytes, absolute 1.1 0.2 - 1.2 K/cumm HISTORICAL RESULTS Eosinophils, abs 0.2 0.0 - 0.5 K/cumm HISTORICAL RESULTS Basophils, abs 0.1 0.0 - 0.2 K/cumm HISTORICAL RESULTS Blood specimen (specimen) 03/20/2013 1:03 PM CDT us Josué Del Valle MD PhD LAB BLOOD ORDERABLES Fin al Result HISTORICAL RESULTS * Cytomegalovirus (CMV) PCR (03/20/2013 1:02 PM CDT) Blood specimen (specimen) (Unknown) 03/20/2013 1:02 PM CDT 03/20/2013 3:02 PM CDT Impressions HISTORICAL RESULTS - 03/21/2013 7:37 AM CDT This assay is based on quantitative real-time PCR. ??The primers used amplify a conserved 61 bp region of the DNA polymerase gene of human CMV. ??Based on data from the [facility], these primers do not amplify any of the other seven human herpes viruses or human DNA sequences. ??It is thought that close to 100% of CMV strains will amplify with these primers, although genotypic sequence variations could result in a false negative result. This assay expresses results in units of CMV genome copies per ml of blood. ??The theoretical lower limit of detection of the assay is 200 copies/ml. ??The assay is accurate for quantitation in the range 2,000-1,250,000 genome copies/ml. ??Specimens found to have detectable CMV DNA beneath the level of accurate quantitation are reported as CMV DNA detected. ??Unable to quantitate because the level of viral DNA is below the level of accurate quantitation (<2,000 copies/ml) . ??If the specimen is found to be positive with greater than 1,250,000 genome copies/ml, a preliminary report is issued stating Positive: >1,250,000 copies/ml , and the specimen is subsequently retested after dilution to determine the actual copy number. Currently, there are no accepted standards for correlating specific copy numbers with CMV disease. ??Studies in our laboratory have shown that the quantitative assay is more sensitive than the qualitative PCR and the shell vial culture methods previously employed. ??In these studies, positive results ranged from 600 to 35,000,000 copies/ml. ??When the quantitative assay was positive but below the level of accurate quantitation, the qualitative PCR and culture assays were usually negative. ??At a level of 4,000 copies/ml, approximately 50% of qualitative PCR assays were positive. ??In these evaluations, the shell vial culture was only positive at levels above 15,000 copies/ml. General Comments: This test was developed and its performance characteristics determined by [facility]. ??It has not been cleared or approved by the U.S. Food and Drug Administration. ?? Current interpretive data was last revised on 2009. Narrative HISTORICAL RESULTS - 03/21/2013 7:37 AM CDT Negative (<200 copies/ml) us Historical Provider LAB MICROBIOLOGY - GENERA L ORDERABLES Final Result HISTORICAL RESULTS * (ABNORMAL) Plasma comprehensive metabolic panel (03/20/2013 1:02 PM CDT) Sodium 140 135 - 145 mmol/L HISTORICAL RESULTS K, pl 4.3 3.3 - 4.9 mmol/L HISTORICAL RESULTS Chloride 106 97 - 110 mmol/L HISTORICAL RESULTS CO2 25 22 - 32 mmol/L HISTORICAL RESULTS A. gap 9 0 - 16 mmol/L HISTORICAL RESULTS Glucose 121 65 - 199 mg/dl HISTORICAL RESULTS BUN 11 8 - 25 mg/dl HISTORICAL RESULTS Creatinine 0.81 0.70 - 1.30 mg/dl HISTORICAL RESULTS Calcium 10.0 8.6 - 10.3 mg/dl HISTORICAL RESULTS Protein, pl 7.2 6.5 - 8.5 g/dl HISTORICAL RESULTS Alb 4.1 3.6 - 5.0 g/dl HISTORICAL RESULTS Bilirubin 0.5 0.3 - 1.1 mg/dl HISTORICAL RESULTS Alk phos 160(H) 38 - 126 Units/L HISTORICAL RESULTS AST 47 11 - 47 Units/L HISTORICAL RESULTS ALT 85(H) 7 - 53 Units/L HISTORICAL RESULTS Plasma 03/20/2013 1:02 PM CDT us Josué Del Valle MD PhD LAB BLOOD ORDERABLES Fin al Result Performing Organization Address [facility] de Phone Number HISTORICAL RESULTS * Serum lactate dehydrogenase (LDH) (03/20/2013 1:02 PM CDT) Lactate dehydrogenase (LDH) 242 100 - 250 Units/L HISTORICAL RESULTS Serum 03/20/2013 1:02 PM CDT us Josué Del Valle MD PhD LAB BLOOD ORDERABLES Fin al Result Performing Organization Address [facility] de Phone Number HISTORICAL RESULTS * All Microbiology Report Section (03/20/2013 12:00 AM CDT) 03/20/2013 Narrative HISTORICAL RESULTS - 05/26/2013 11:09 AM CDT ? [facility] ?[address] [facility] [address] ?[place], [place] [address] ? Patient Name: ??BRI JONES ? Med Rec Number: [id number] ? Fin Number: ?[id number] ? Date: ?1965 ? Sex/Age: ? Male 47 years ? Admit Date: ?11/18/2012 ? Discharge Date: 11/17/2013 ? Doctor: ?Josué Del Valle ? Facility: ?[facility] ? Location: ?[facility] ?* Abnormal ??A Alert ??f Footnote ??^ Corrected ??L Low ??H High ?i Interp Data ??@ Ref Lab ? Chart Type:Cumulative ?* * * * MICROBIOLOGY - MOLECULAR TESTING * * * * ?PROCEDURE: Cytomegalovirus PCR, Blood ? SOURCE: Blood ? COLLECTED: 05/03/13 ??1302 ?BODY SITE: ? STARTED: 05/03/13 ??1502 ? FREE TEXT SOURCE: ? FINAL REPORT ? REPORTED: 05/04/13 0737 ? Negative (<200 copies/ml) ? ORDER COMMENTS ? (1)Testing performed by: [facility], [place], ? [place]. ??[id number]. ?* * * ??Interpretive Results ??* * * ? (1)This assay is based on quantitative real-time PCR. ??The primers ? used amplify a conserved 61 bp region of the DNA polymerase gene ? of human CMV. ??Based on data from the [facility], these primers do not amplify any ? of the other seven human herpes viruses or human DNA sequences. ? It is thought that close to 100% of CMV strains will amplify ? with these primers, although genotypic sequence variations could ? result in a false negative result. This assay expresses results ? in units of CMV genome copies per ml of blood. ??The theoretical ? lower limit of detection of the assay is 200 copies/ml. ??The ? assay is accurate for quantitation in the range 2,000-1,250,000 ? genome copies/ml. ??Specimens found to have detectable CMV DNA ? beneath the level of accurate quantitation are reported as CMV ? DNA detected. ??Unable to quantitate because the level of viral ? DNA is below the level of accurate quantitation (<2,000 ? copies/ml) . ??If the specimen is found to be positive with ? greater than 1,250,000 genome copies/ml, a preliminary report is ? issued stating Positive: >1,250,000 copies/ml , and the ? specimen is subsequently retested after dilution to determine ? the actual copy number. Currently, there are no accepted ? standards for correlating specific copy numbers with CMV disease. ? Studies in our laboratory have shown that the quantitative ? assay is more sensitive than the qualitative PCR and the shell ? vial culture methods previously employed. ??In these studies, ? positive results ranged from 600 to 35,000,000 copies/ml. ??When ? the quantitative assay was positive but below the level of ? accurate quantitation, the qualitative PCR and culture assays ? were usually negative. ??At a level of 4,000 copies/ml, ? approximately 50% of qualitative PCR assays were positive. ??In ? these evaluations, the shell vial culture was only positive at ? levels above 15,000 copies/ml.General Comments: This test was ? developed and its performance characteristics determined by . ? [facility]. ??It has not been cleared ? or approved by the U.S. Food and Drug Administration. ??Current ? interpretive data was last revised on 2009. ? us Historical Provider LAB MICROBIOLOGY - GENERA L ORDERABLES Final Result HISTORICAL RESULTS * Cytomegalovirus (CMV) PCR (02/27/2013 1:54 PM CDT) Blood specimen (specimen) (Unknown) 02/27/2013 1:54 PM CDT 02/27/2013 5:18 PM CDT Impressions HISTORICAL RESULTS - 02/28/2013 6:24 AM CDT This assay is based on quantitative real-time PCR. ??The primers used amplify a conserved 61 bp region of the DNA polymerase gene of human CMV. ??Based on data from the [facility], these primers do not amplify any of the other seven human herpes viruses or human DNA sequences. ??It is thought that close to 100% of CMV strains will amplify with these primers, although genotypic sequence variations could result in a false negative result. This assay expresses results in units of CMV genome copies per ml of blood. ??The theoretical lower limit of detection of the assay is 200 copies/ml. ??The assay is accurate for quantitation in the range 2,000-1,250,000 genome copies/ml. ??Specimens found to have detectable CMV DNA beneath the level of accurate quantitation are reported as CMV DNA detected. ??Unable to quantitate because the level of viral DNA is below the level of accurate quantitation (<2,000 copies/ml) . ??If the specimen is found to be positive with greater than 1,250,000 genome copies/ml, a preliminary report is issued stating Positive: >1,250,000 copies/ml , and the specimen is subsequently retested after dilution to determine the actual copy number. Currently, there are no accepted standards for correlating specific copy numbers with CMV disease. ??Studies in our laboratory have shown that the quantitative assay is more sensitive than the qualitative PCR and the shell vial culture methods previously employed. ??In these studies, positive results ranged from 600 to 35,000,000 copies/ml. ??When the quantitative assay was positive but below the level of accurate quantitation, the qualitative PCR and culture assays were usually negative. ??At a level of 4,000 copies/ml, approximately 50% of qualitative PCR assays were positive. ??In these evaluations, the shell vial culture was only positive at levels above 15,000 copies/ml. General Comments: This test was developed and its performance characteristics determined by [facility]. ??It has not been cleared or approved by the U.S. Food and Drug Administration. ?? Current interpretive data was last revised on 2009. Narrative HISTORICAL RESULTS - 02/28/2013 6:24 AM CDT Negative (<200 copies/ml) us Historical Provider LAB MICROBIOLOGY - GENERA L ORDERABLES Final Result HISTORICAL RESULTS * Blood tacrolimus (FK-506) drug level (02/27/2013 1:54 PM CDT) Tacrolimus 2.4 ng/ml HISTORICA L RESULTS Comment: Interpretive Data This test was developed using an analyte specific reagent. ??Its performance characteristics were determined by the [facility] in a manner consistent with CLIA requirements. This test has not been cleared or approved by the U.S. Food and Drug Administration. Current interpretive data was last revised on 2012. Blood specimen (specimen) 02/27/2013 1:54 PM CDT Josué Del Valle MD PhD LAB BLOOD ORDERABLES Fin al Result HISTORICAL RESULTS * (ABNORMAL) Plasma comprehensive metabolic panel (02/27/2013 1:54 PM CDT) Sodium 139 135 - 145 mmol/L HISTORICAL RESULTS K, pl 4.0 3.3 - 4.9 mmol/L HISTORICAL RESULTS Chloride 104 97 - 110 mmol/L HISTORICAL RESULTS CO2 28 22 - 32 mmol/L HISTORICAL RESULTS A. gap 7 0 - 16 mmol/L HISTORICAL RESULTS Glucose 227(H) 65 - 199 mg/dl HISTORICAL RESULTS BUN 9 8 - 25 mg/dl HISTORICAL RESULTS Creatinine 0.89 0.70 - 1.30 mg/dl HISTORICAL RESULTS Calcium 9.3 8.6 - 10.3 mg/dl HISTORICAL RESULTS Protein, pl 6.7 6.5 - 8.5 g/dl HISTORICAL RESULTS Alb 3.8 3.6 - 5.0 g/dl HISTORICAL RESULTS Bilirubin 0.4 0.3 - 1.1 mg/dl HISTORICAL RESULTS Alk phos 158(H) 38 - 126 Units/L HISTORICAL RESULTS AST 44 11 - 47 Units/L HISTORICAL RESULTS ALT 54(H) 7 - 53 Units/L HISTORICAL RESULTS Plasma 02/27/2013 1:54 PM CDT Josué Del Valle MD PhD LAB BLOOD ORDERABLES Fin al Result Performing Organization Address City/[facility]/ZIP Co de Phone Number HISTORICAL RESULTS * (ABNORMAL) Serum lactate dehydrogenase (LDH) (02/27/2013 1:54 PM CDT) Lactate dehydrogenase (LDH) 267(H) 100 - 250 Units/L HISTORICAL RESULTS Serum 02/27/2013 1:54 PM CDT Josué Del Valle MD PhD LAB BLOOD ORDERABLES Fin al Result HISTORICAL RESULTS * Serum uric acid (02/27/2013 1:54 PM CDT) Uric acid 5.6 3.0 - 8.0 mg/dl HISTORICAL RESULTS Serum 02/27/2013 1:54 PM CDT Josué Del Valle MD PhD LAB BLOOD ORDERABLES Fin al Result Performing Organization Address [facility] de Phone Number HISTORICAL RESULTS * (ABNORMAL) Serum magnesium (02/27/2013 1:54 PM CDT) Magnesium 1.3(L) 1.4 - 2.5 mg/dl HISTORICAL RESULTS Serum 02/27/2013 1:54 PM CDT Josué Del Valle MD PhD LAB BLOOD ORDERABLES Fin al Result Performing Organization Address [facility] Phone Number HISTORICAL RESULTS * Blood morphology screen (02/27/2013 1:52 PM CDT) Morphology scrn Original results obtained required verification by peripheral smear HISTORICAL RESULTS Blood specimen (specimen) 02/27/2013 1:52 PM CDT Josué Del Valle MD PhD LAB BLOOD ORDERABLES Fin al Result Performing Organization Address [facility] Phone Number HISTORICAL RESULTS * (ABNORMAL) Blood cell count [CBC] panel, 7 CAM (02/27/2013 1:52 PM CDT) WBC 12.3(H) 3.8 - 9.8 K/cumm HISTORICAL RESULTS RBC 3.34(L) 4.50 - 5.70 M/cumm HISTORICAL RESULTS Hgb 12.3(L) 13.8 - 17.2 g/dl HISTORICAL RESULTS Hct 36.8(L) 40.7 - 50.3 % HISTORICAL RESULTS MCV 110.3(H) 80.0 - 97.6 fl HISTORICAL RESULTS MCH 36.8(H) 26.7 - 33.7 pg HISTORICAL RESULTS MCHC 33.4 32.7 - 35.5 g/dl HISTORICAL RESULTS Rdw 18.1(H) 11.8 - 14.6 SD HISTORICAL RESULTS Platelets 311 140 - 440 K/cumm HISTORICAL RESULTS MPV 7.6 6.8 - 10.4 fl HISTORICAL RESULTS Neutrophils 77.6(H) 38.7 - 74.5 % HISTORICAL RESULTS Lymphocytes 13.8(L) 20.0 - 54.3 % HISTORICAL RESULTS Monos 7.1 4.3 - 13.5 % HISTORICAL RESULTS Eosinophils 0.9 0.0 - 6.0 % HISTORICAL RESULTS Basophils 0.6 0.0 - 3.0 % HISTORICAL RESULTS Neutrophils, abs 9.6(H) 1.8 - 6.6 K/cumm HISTORICAL RESULTS Lymphocytes, abs 1.7 1.2 - 3.3 K/cumm HISTORICAL RESULTS Monocytes, absolute 0.9 0.2 - 1.2 K/cumm HISTORICAL RESULTS Eosinophils, abs 0.1 0.0 - 0.5 K/cumm HISTORICAL RESULTS Basophils, abs 0.1 0.0 - 0.2 K/cumm HISTORICAL RESULTS Blood specimen (specimen) 02/27/2013 1:52 PM CDT Josué Del Valle MD PhD LAB BLOOD ORDERABLES Fin al Result HISTORICAL RESULTS * All Microbiology Report Section (02/27/2013 12:00 AM CDT) 02/27/2013 Narrative HISTORICAL RESULTS - 05/26/2013 11:09 AM CDT ? [facility] ?[address] [facility] [address] ?[place], [place] [address] ? Patient Name: ??BRI JONES ? Med Rec Number: [id number] ? Fin Number: ?[id number] ? Date: ?1965 ? Sex/Age: ? Male 47 years ? Admit Date: ?11/18/2012 ? Discharge Date: 11/17/2013 ? Doctor: ?DiPersio, Josué F ? Facility: ?[facility] ? Location: ?[facility] ?* Abnormal ??A Alert ??f Footnote ??^ Corrected ??L Low ??H High ?i Interp Data ??@ Ref Lab ? Chart Type:Cumulative ?* * * * MICROBIOLOGY - MOLECULAR TESTING * * * * ?PROCEDURE: Cytomegalovirus PCR, Blood ? SOURCE: Blood ? COLLECTED: /12/13 ??1354 ?BODY SITE: ? STARTED: 04/12/13 ??1718 ? FREE TEXT SOURCE: ? FINAL REPORT ? REPORTED: 02/28/13 0624 ? Negative (<200 copies/ml) ? ORDER COMMENTS ? (1)Testing performed by: [facility], ? [place]. ??[id number]. ?* * * ??Interpretive Results ??* * * ? (1)This assay is based on quantitative real-time PCR. ??The primers ? used amplify a conserved 61 bp region of the DNA polymerase gene ? of human CMV. ??Based on data from the [facility], these primers do not amplify any ? of the other seven human herpes viruses or human DNA sequences. ? It is thought that close to 100% of CMV strains will amplify ? with these primers, although genotypic sequence variations could ? result in a false negative result. This assay expresses results ? in units of CMV genome copies per ml of blood. ??The theoretical ? lower limit of detection of the assay is 200 copies/ml. ??The ? assay is accurate for quantitation in the range 2,000-1,250,000 ? genome copies/ml. ??Specimens found to have detectable CMV DNA ? beneath the level of accurate quantitation are reported as CMV ? DNA detected. ??Unable to quantitate because the level of viral ? DNA is below the level of accurate quantitation (<2,000 ? copies/ml) . ??If the specimen is found to be positive with ? greater than 1,250,000 genome copies/ml, a preliminary report is ? issued stating Positive: >1,250,000 copies/ml , and the ? specimen is subsequently retested after dilution to determine ? the actual copy number. Currently, there are no accepted ? standards for correlating specific copy numbers with CMV disease. ? Studies in our laboratory have shown that the quantitative ? assay is more sensitive than the qualitative PCR and the shell ? vial culture methods previously employed. ??In these studies, ? positive results ranged from 600 to 35,000,000 copies/ml. ??When ? the quantitative assay was positive but below the level of ? accurate quantitation, the qualitative PCR and culture assays ? were usually negative. ??At a level of 4,000 copies/ml, ? approximately 50% of qualitative PCR assays were positive. ??In ? these evaluations, the shell vial culture was only positive at ? levels above 15,000 copies/ml.General Comments: This test was ? developed and its performance characteristics determined by . ? [facility]. ??It has not been cleared ? or approved by the U.S. Food and Drug Administration. ??Current ? interpretive data was last revised on 2009. ? Historical Provider LAB MICROBIOLOGY - GENERA L ORDERABLES Final Result Performing Organization Address [facility] de Phone Number HISTORICAL RESULTS * Blood tacrolimus (FK-506) drug level (12/26/2012 11:18 AM WEAVING INSTRUCTOR) Tacrolimus 3.3 ng/ml HISTORICA L RESULTS Comment: Interpretive Data This test was developed using an analyte specific reagent. ??Its performance characteristics were determined by the [facility] in a manner consistent with CLIA requirements. This test has not been cleared or approved by the U.S. Food and Drug Administration. Current interpretive data was last revised on 2012. Blood specimen (specimen) 12/26/2012 11:18 AM WEAVING INSTRUCTOR Josué Del Valle MD PhD LAB BLOOD ORDERABLES Fin al Result HISTORICAL RESULTS * Cytomegalovirus (CMV) PCR (12/26/2012 10:55 AM WEAVING INSTRUCTOR) Blood specimen (specimen) (Unknown) 12/26/2012 10:55 AM WEAVING INSTRUCTOR 12/26/2012 11:57 AM WEAVING INSTRUCTOR Impressions HISTORICAL RESULTS - 12/27/2012 6:07 AM WEAVING INSTRUCTOR This assay is based on quantitative real-time PCR. ??The primers used amplify a conserved 61 bp region of the DNA polymerase gene of human CMV. ??Based on data from the [facility], these primers do not amplify any of the other seven human herpes viruses or human DNA sequences. ??It is thought that close to 100% of CMV strains will amplify with these primers, although genotypic sequence variations could result in a false negative result. This assay expresses results in units of CMV genome copies per ml of blood. ??The theoretical lower limit of detection of the assay is 200 copies/ml. ??The assay is accurate for quantitation in the range 2,000-1,250,000 genome copies/ml. ??Specimens found to have detectable CMV DNA beneath the level of accurate quantitation are reported as CMV DNA detected. ??Unable to quantitate because the level of viral DNA is below the level of accurate quantitation (<2,000 copies/ml) . ??If the specimen is found to be positive with greater than 1,250,000 genome copies/ml, a preliminary report is issued stating Positive: >1,250,000 copies/ml , and the specimen is subsequently retested after dilution to determine the actual copy number. Currently, there are no accepted standards for correlating specific copy numbers with CMV disease. ??Studies in our laboratory have shown that the quantitative assay is more sensitive than the qualitative PCR and the shell vial culture methods previously employed. ??In these studies, positive results ranged from 600 to 35,000,000 copies/ml. ??When the quantitative assay was positive but below the level of accurate quantitation, the qualitative PCR and culture assays were usually negative. ??At a level of 4,000 copies/ml, approximately 50% of qualitative PCR assays were positive. ??In these evaluations, the shell vial culture was only positive at levels above 15,000 copies/ml. General Comments: This test was developed and its performance characteristics determined by [facility]. ??It has not been cleared or approved by the U.S. Food and Drug Administration. ?? Current interpretive data was last revised on 2009. Narrative HISTORICAL RESULTS - 12/27/2012 6:07 AM WEAVING INSTRUCTOR Negative (<200 copies/ml) Historical Provider MD LAB MICROBIOLOGY - GENERA L ORDERABLES Final Result HISTORICAL RESULTS * (ABNORMAL) Plasma comprehensive metabolic panel (12/26/2012 10:55 AM WEAVING INSTRUCTOR) Sodium 141 135 - 145 mmol/L HISTORICAL RESULTS K, pl 3.9 3.3 - 4.9 mmol/L HISTORICAL RESULTS Chloride 105 97 - 110 mmol/L HISTORICAL RESULTS CO2 26 22 - 32 mmol/L HISTORICAL RESULTS A. gap 10 0 - 16 mmol/L HISTORICAL RESULTS Glucose 135 65 - 199 mg/dl HISTORICAL RESULTS BUN 18 8 - 25 mg/dl HISTORICAL RESULTS Creatinine 0.81 0.70 - 1.30 mg/dl HISTORICAL RESULTS Calcium 9.6 8.6 - 10.3 mg/dl HISTORICAL RESULTS Protein, pl 7.0 6.5 - 8.5 g/dl HISTORICAL RESULTS Alb 4.2 3.6 - 5.0 g/dl HISTORICAL RESULTS Bilirubin 0.5 0.3 - 1.1 mg/dl HISTORICAL RESULTS Alk phos 129(H) 38 - 126 Units/L HISTORICAL RESULTS AST 37 11 - 47 Units/L HISTORICAL RESULTS ALT 99(H) 7 - 53 Units/L HISTORICAL RESULTS Plasma 12/26/2012 10:5 5 AM WEAVING INSTRUCTOR Josué Del Valle MD PhD LAB BLOOD ORDERABLES Fin al Result HISTORICAL RESULTS * (ABNORMAL) Serum lactate dehydrogenase (LDH) (12/26/2012 10:55 AM WEAVING INSTRUCTOR) Lactate dehydrogenase (LDH) 273(H) 100 - 250 Units/L HISTORICAL RESULTS Serum 12/26/2012 10:5 5 AM WEAVING INSTRUCTOR Josué Del Valle MD PhD LAB BLOOD ORDERABLES Fin al Result Performing Organization Address [facility] de Phone Number HISTORICAL RESULTS * Serum prostate-specific antigen (PSA) (12/26/2012 10:55 AM WEAVING INSTRUCTOR) PSA 0.7 0.0 - 4.0 ng/ml HISTORICAL RESULTS Serum 12/26/2012 10:5 5 AM WEAVING INSTRUCTOR Josué Del Valle MD PhD LAB BLOOD ORDERABLES Fin al Result Performing Organization Address [facility] de Phone Number HISTORICAL RESULTS * (ABNORMAL) Serum testosterone (12/26/2012 10:55 AM WEAVING INSTRUCTOR) Testosterone 215(L) 241 - 827 ng/dl HISTORICAL RESULTS Comment: Interpretive Data Male: ? 241 - 827 ng/dL Female: ??Age 15-75 yrs: ?? 14 - 76 ng/dL Current interpretive data was last revised on 03. Serum 12/26/2012 10:5 5 AM WEAVING INSTRUCTOR us Josué Del Valle MD PhD LAB BLOOD ORDERABLES Fin al Result Performing Organization Address [facility] de Phone Number HISTORICAL RESULTS * Serum Human Immunodeficiency virus (HIV) 1, 2 ab (12/26/2012 10:55 AM WEAVING INSTRUCTOR) HIV ab Negative NEG HISTORICAL RESULTS Serum 12/26/2012 10:5 5 AM WEAVING INSTRUCTOR Josué Del Valle MD PhD LAB BLOOD ORDERABLES Fin al Result Performing Organization Address [facility] de Phone Number HISTORICAL RESULTS * (ABNORMAL) Blood cell count [CBC] panel, 7 CAM (12/26/2012 10:54 AM WEAVING INSTRUCTOR) WBC 17.0(H) 3.8 - 9.8 K/cumm HISTORICAL RESULTS RBC 4.08(L) 4.50 - 5.70 M/cumm HISTORICAL RESULTS Hgb 15.8 13.8 - 17.2 g/dl HISTORICAL RESULTS Hct 44.4 40.7 - 50.3 % HISTORICAL RESULTS MCV 108.8(H) 80.0 - 97.6 fl HISTORICAL RESULTS MCH 38.7(H) 26.7 - 33.7 pg HISTORICAL RESULTS Comment:{Result consistent w ith previously reported values.} MCHC 35.6(H) 32.7 - 35.5 g/dl HISTORICAL RESULTS Rdw 12.8 11.8 - 14.6 SD HISTORICAL RESULTS Platelets 194 140 - 440 K/cumm HISTORICAL RESULTS MPV 8.1 6.8 - 10.4 fl HISTORICAL RESULTS Neutrophils 69.1 38.7 - 74.5 % HISTORICAL RESULTS Lymphocytes 23.2 20.0 - 54.3 % HISTORICAL RESULTS Monos 6.8 4.3 - 13.5 % HISTORICAL RESULTS Eosinophils 0.3 0.0 - 6.0 % HISTORICAL RESULTS Basophils 0.6 0.0 - 3.0 % HISTORICAL RESULTS Neutrophils, abs 11.7(H) 1.8 - 6.6 K/cumm HISTORICAL RESULTS Lymphocytes, abs 3.9(H) 1.2 - 3.3 K/cumm HISTORICAL RESULTS Monocytes, absolute 1.1 0.2 - 1.2 K/cumm HISTORICAL RESULTS Eosinophils, abs 0.0 0.0 - 0.5 K/cumm HISTORICAL RESULTS Basophils, abs 0.1 0.0 - 0.2 K/cumm HISTORICAL RESULTS Blood specimen (specimen) 12/26/2012 10:54 AM WEAVING INSTRUCTOR us Josué Del Valle MD PhD LAB BLOOD ORDERABLES Fin al Result HISTORICAL RESULTS * All Microbiology Report Section (12/26/2012 12:00 AM WEAVING INSTRUCTOR) 12/26/2012 Narrative HISTORICAL RESULTS - 05/26/2013 11:09 AM CDT ? [facility] ?[facility] [address] ?[place] [address] ? Patient Name: ??KAMRON, BRI Denton ? Med Rec Number: [id number] ? Fin Number: ?[id number] ? Date: ?1965 ? Sex/Age: ? Male 47 years ? Admit Date: ?11/18/2012 ? Discharge Date: 11/17/2013 ? Doctor: ?Jessica, Josué F ? Facility: ?[facility] ? Location: ?[facility] ?* Abnormal ??A Alert ??f Footnote ??^ Corrected ??L Low ??H High ?i Interp Data ??@ Ref Lab ? Chart Type:Cumulative ?* * * * MICROBIOLOGY - MOLECULAR TESTING * * * * ?PROCEDURE: Cytomegalovirus PCR, Blood ? SOURCE: Blood ? COLLECTED: 12/26/12 ??1055 ?BODY SITE: ? STARTED: 12/26/12 ??1157 ? FREE TEXT SOURCE: ? FINAL REPORT ? REPORTED: 12/27/12 0607 ? Negative (<200 copies/ml) ? ORDER COMMENTS ? (1)Testing performed by: [facility], [place], ? [place]. ??[address]. ?* * * ??Interpretive Results ??* * * ? (1)This assay is based on quantitative real-time PCR. ??The primers ? used amplify a conserved 61 bp region of the DNA polymerase gene ? of human CMV. ??Based on data from the [facility], these primers do not amplify any ? of the other seven human herpes viruses or human DNA sequences. ? It is thought that close to 100% of CMV strains will amplify ? with these primers, although genotypic sequence variations could ? result in a false negative result. This assay expresses results ? in units of CMV genome copies per ml of blood. ??The theoretical ? lower limit of detection of the assay is 200 copies/ml. ??The ? assay is accurate for quantitation in the range 2,000-1,250,000 ? genome copies/ml. ??Specimens found to have detectable CMV DNA ? beneath the level of accurate quantitation are reported as CMV ? DNA detected. ??Unable to quantitate because the level of viral ? DNA is below the level of accurate quantitation (<2,000 ? copies/ml) . ??If the specimen is found to be positive with ? greater than 1,250,000 genome copies/ml, a preliminary report is ? issued stating Positive: >1,250,000 copies/ml , and the ? specimen is subsequently retested after dilution to determine ? the actual copy number. Currently, there are no accepted ? standards for correlating specific copy numbers with CMV disease. ? Studies in our laboratory have shown that the quantitative ? assay is more sensitive than the qualitative PCR and the shell ? vial culture methods previously employed. ??In these studies, ? positive results ranged from 600 to 35,000,000 copies/ml. ??When ? the quantitative assay was positive but below the level of ? accurate quantitation, the qualitative PCR and culture assays ? were usually negative. ??At a level of 4,000 copies/ml, ? approximately 50% of qualitative PCR assays were positive. ??In ? these evaluations, the shell vial culture was only positive at ? levels above 15,000 copies/ml.General Comments: This test was ? developed and its performance characteristics determined by . ? [facility]. ??It has not been cleared ? or approved by the U.S. Food and Drug Administration. ??Current ? interpretive data was last revised on 2009. ? us Historical Provider LAB MICROBIOLOGY - GENERA L ORDERABLES Final Result HISTORICAL RESULTS documented in this encounter Visit Diagnoses Diagnosis Acute myeloid leukemia (HCC) Acute myeloid leukemia, without mention of having achieved remission documented in this encounter 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
--- OUTSIDE RECORDS SUMMARY | 2024-11-22 11:13 | XMS_ITS | Encounter Summary ---
Author Organization [facility] Facility Care Team Providers Care Parking Manager Name Role Phone Unavailable Primary Care Provider Unavailabl e Encounter Details Date Type Department Care Team (Late st Contact Info) Description 01/06/2013 - 01/06/2013 11:59 PM WATCH MECHANIC Hospital Encounter [facility] Carmen Kaye MD [phone] [address] Pre-operative respiratory examination; Shortness of breath Social History Tobacco Use Types Packs/Day Years Used Date Smoking Tobacco: Never Assessed Sex and Gender Information Value Date Recorded Sex Assigned at Not on file Legal Sex Male 10:48 AM WATCH MECHANIC Gender Identity Not on file Sexual [...] Comments XR CHEST PA LATERAL 2 VIEWS Routine 01/07/2013 8:56 AM WATCH MECHANIC documented in this encounter Results * XR Chest Pa Lateral 2 Views (01/07/2013 8:56 AM WATCH MECHANIC) Anatomical Region Laterality Modality Body, Chest N/A Radiographic Tiffany ging 01/07/2013 8:56 AM WATCH MECHANIC Narrative 01/07/2013 4:54 PM WATCH MECHANIC Toño RHODES M.D. HO FINAL REPORT The radiology attending physician has personally reviewed this study, and has reviewed and/or edited this written report and agrees with it. ACC# ??Date Time ??Exam [id number] Jan 07, 2013 08:56:00 [id number] Chest 2 views Frontl & Lat EXAMINATION: ?? CHEST 2 VIEWS IMPRESSION: ?? Comparison is made to a prior study dated December 08, 2010. In the interval, a left internal jugular catheter has been removed. Partial right middle lobe collapse is unchanged from the prior chest CT dated November 03, 2012. No pneumothorax or pleural effusion. Heart size is normal. Requested By: CARMEN HELM ??Toño Dictated By: ?? Toño FERRARO ??on Jan 07 2013 11:19A This document has been electronically signed by: GREGORIA TRINIDAD M.D. on Jan 07 2013 ??4:53P Procedure Note Provider, MD Shmuel - 04/25/2017 Toño RHODES M.D. HO FINAL REPORT The radiology attending physician has personally reviewed this study, and has reviewed and/or edited this written report and agrees with it. ACC# Date Time Exam [id number] Jan 07, 2013 08:56:00 [id number] Chest 2 views Frontl & Lat EXAMINATION: CHEST 2 VIEWS IMPRESSION: Comparison is made to a prior study dated December 08, 2010. In the interval, a left internal jugular catheter has been removed. Partial right middle lobe collapse is unchanged from the prior chest CT dated November 03, 2012. No pneumothorax or pleural effusion. Heart size is normal. Requested By: CARMEN HELM M.D. Dictated By: Toño FERRARO on Jan 07 2013 11:19A This document has been electronically signed by: GREGORIA TRINIDAD M.D. on Jan 07 2013 4:53P us Historical Provider MD TAPIA XR PROCEDURES Final R esult documented in this encounter Visit Diagnoses Diagnosis Pre-operative respiratory examination Shortness of breath documented in this encounter 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
--- OUTSIDE RECORDS SUMMARY | 2024-11-22 11:13 | XMS_ITS | Encounter Summary ---
Author Organization [facility] Facility Care Team Providers Care Neuroradiologist Name Role Phone Unavailable Primary Care Provider Unavailabl e Encounter Details Date Type Department Care Team (Late st Contact Info) Description 12/25/2010 Hospital Encounter [facility] Josué Armenta MD PhD [address] DIV [employer]PL[employer], [place] [address] Acute myeloid leukemia (HCC); Examination of participant in clinical trial; History of peripheral stem cell transplant (HCC) Social History Tobacco Use Types Packs/Day Years Used Date Smoking Tobacco: Never Assessed Sex and Gender Information Value Date Recorded Sex Assigned at Not on file Legal Sex Male 10:48 AM BILLET GRINDER Gender Identity Not on file Sexual Orientation Not on file documented as of this encounter Medications at Time of Discharge acyclovir (ZOVIRAX) 400 mg tabletIndications :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 05/24/2010 07/28/2018 documented as of this encounter Plan of Treatment Not on file documented as of this encounter Visit Diagnoses Diagnosis Acute myeloid leukemia (HCC) Acute myeloid leukemia, without mention of having achieved remission Examination of participant in clinical trial History of peripheral stem cell transplant (HCC) Peripheral stem cells replaced by transplant documented in this encounter 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
--- OUTSIDE RECORDS SUMMARY | 2024-11-22 11:13 | XMS_ITS | Encounter Summary ---
Author Organization [facility] Facility Care Team Providers Care Social Science Instructor Name Role Phone Unavailable Primary Care Provider Unavailabl e Encounter Details Date Type Department Care Team (Latest Contact Info) Description 09/12/2009 3:39 PM CDT - 10/12/2009 4:09 PM [facility] Hospital Encounter 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); Paralytic strabismus, sixth or abducens nerve palsy; Examination of participant in clinical trial; Chronic sinusitis; Tobacco use disorder; Neutropenia (HCC); Fever presenting with conditions classified elsewhere; Stomatitis and mucositis; Rash and other nonspecific skin eruption; Diplopia; Swelling, mass, or lump in head and neck; Anemia; Esophagitis Social History Tobacco Use Types Packs/Day Years Used Date Smoking Tobacco: Never Assessed Sex and Gender Information Value Date Recorded Sex Assigned at Not on file Legal Sex Male 10:48 AM VENEREAL DISEASE CONTROL HEAD Gender Identity Not on file Sexual Orientation Not on file documented as of this encounter Plan of Treatment Not on file documented as of this encounter Visit Diagnoses Diagnosis Encounter for antineoplastic chemotherapy Pulmonary collapse 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
--- OUTSIDE RECORDS SUMMARY | 2024-11-22 11:13 | XMS_ITS | Encounter Summary ---
Author Organization [facility] Facility Care Team Providers Care Ferryboat Captain Name Role Phone Unavailable Primary Care Provider Unavailabl e Encounter Details Date Type Department Care Team (Late st Contact Info) Description 11/18/2011 - 11/17/2012 11:59 PM COMPUTER REPAIR TECHNICIAN Hospital Encounter [facility] Josué Armenta MD PhD [address] DIV [employer]ARR[employer] TR[employer], [address] [place] [id number] Acute myeloid leukemia in remission (HCC); Disorder of bone and cartilage; History of peripheral stem cell transplant (HCC) Social History Tobacco Use Types Packs/Day Years Used Date Smoking Tobacco: Never Assessed Sex and Gender Information Value Date Recorded Sex Assigned at Not on file Legal Sex Male 10:48 AM COMPUTER REPAIR TECHNICIAN Gender Identity Not on file [...] remission (HCC) Acute myeloid leukemia in remission Disorder of bone and cartilage Disorder of bone and cartilage, unspecified History of peripheral stem cell transplant (HCC) Peripheral stem cells replaced by transplant documented in this encounter 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
--- OUTSIDE RECORDS SUMMARY | 2024-11-22 11:13 | XMS_ITS | Encounter Summary ---
Author Organization [facility] Facility Care Team Providers Care Silk Screen Operator Name Role Phone Unavailable Primary Care Provider Unavailabl e Encounter Details Date Type Department Care Team (Late st Contact Info) Description 10/31/2009 - 11/17/2009 11:59 PM PRISON GUARD SUPERVISOR Hospital Encounter [facility] Kirt Parker Social History Tobacco Use Types Packs/Day Years Used Date Smoking Tobacco: Never Assessed Sex and Gender Information Value Date Recorded Sex Assigned at Not on file Legal Sex Male 10:48 AM PRISON GUARD SUPERVISOR Gender Identity Not on file Sexual Orientation Not on file documented as of this encounter Plan of Treatment Not on file documented as of this encounter Visit Diagnoses Not on filedocumented in this encounter
--- OUTSIDE RECORDS SUMMARY | 2024-11-22 11:13 | XMS_ITS | Encounter Summary ---
Author Organization [facility] Facility Care Team Providers Care Seo Strategist Name Role Phone Unavailable Primary Care Provider Unavailabl e Encounter Details Date Type Department Care Team (Latest Contact Info) Description 06/22/2009 4:25 PM CDT - 06/24/2009 6:21 PM CDT Hospital Encounter [facility] Josué Armenta MD PhD [address] [facility] B[employer] TR[employer], [address] [address] Acute myeloid leukemia (HCC); Paralytic strabismus, sixth or abducens nerve palsy; Examination of participant in clinical trial; Diplopia; Headache; Tobacco use disorder; Family history of ischemic heart disease; Family history of other chronic respiratory condition; Family history of other cardiovascular diseases Social History Tobacco Use Types Packs/Day Years Used Date Smoking Tobacco: Never Assessed Sex and Gender Information Value Date Recorded Sex Assigned at Not on file Legal Sex Male 10:48 AM MEDICAL SERVICES ASSISTANT Gender Identity Not on file Sexual Orientation Not on file documented as of this encounter Plan of Treatment Not on file documented as of this encounter Visit Diagnoses Diagnosis Acute myeloid leukemia (HCC) Acute myeloid leukemia, without mention of having achieved remission Paralytic strabismus, sixth or abducens nerve palsy Examination of participant in clinical trial Diplopia Headache Tobacco use disorder Family history of ischemic heart disease Family history of other chronic respiratory condition Family history of other cardiovascular diseases documented in this encounter
--- OUTSIDE RECORDS SUMMARY | 2024-11-22 11:13 | XMS_ITS | Encounter Summary ---
Author Organization [facility] Facility Care Team Providers Care Teaching Manager Name Role Phone Unavailable Primary Care Provider Unavailabl e Encounter Details Date Type Department Care Team (Late st Contact Info) Description 03/01/2010 - 03/01/2010 11:59 PM CDT Hospital Encounter [facility] Josué Armenta MD PhD [address] DIV [employer] TR[employer], [address] [place] [address] Cough; Pulmonary congestion and hypostasis Social History Tobacco Use Types Packs/Day Years Used Date Smoking Tobacco: Never Assessed Sex and Gender Information Value Date Recorded Sex Assigned at Not on file Legal Sex Male 10:48 AM TAFE LECTURER Gender Identity Not on file Sexual Orientation Not on file documented as of this encounter Plan of Treatment Not on file documented as of this encounter Visit Diagnoses Diagnosis Cough Pulmonary congestion and hypostasis documented in this encounter
--- OUTSIDE RECORDS SUMMARY | 2024-11-22 11:13 | XMS_ITS | Encounter Summary ---
Author Organization [facility] Facility Care Team Providers Care Picc Nurse Name Role Phone Unavailable Primary Care Provider Unavailabl e Encounter Details Date Type Department Care Team (Late st Contact Info) Description 07/19/2009 - 07/19/2009 11:59 PM CDT Hospital Encounter [facility] CLINCONCelso aYtes MD [address] [address] Paralytic strabismus, sixth or abducens nerve palsy; Examination of participant in clinical trial Social History Tobacco Use Types Packs/Day Years Used Date Smoking Tobacco: Never Assessed Sex and Gender Information Value Date Recorded Sex Assigned at Not on file Legal Sex Male 10:48 AM SPORTS TEAM MANAGER Gender Identity Not on file Sexual Orientation Not on file documented as of this encounter Plan of Treatment Not on file documented as of this encounter Visit Diagnoses Diagnosis Paralytic strabismus, sixth or abducens nerve palsy Examination of participant in clinical trial documented in this encounter
--- OUTSIDE RECORDS SUMMARY | 2024-11-22 11:13 | XMS_ITS | Encounter Summary ---
Author Organization [facility] Facility Care Team Providers Care Stagecraft Professor Name Role Phone Unavailable Primary Care Provider Unavailabl e Encounter Details Date Type Department Care Team (Late st Contact Info) Description 11/18/2008 - 11/17/2009 11:59 PM PRODUCT SAFETY TESTER Hospital Encounter [facility] Josué Armenta MD PhD [address] B[employer] MARROW TR[employer]PLANT, [address] [address] Acute myeloid leukemia in remission (HCC); Chemotherapy follow-up examination; Examination of participant in clinical trial; Other specified pre-operative examination; Acute myeloid leukemia (HCC) Social History Tobacco Use Types Packs/Day Years Used Date Smoking Tobacco: Never Assessed Sex and Gender Information Value Date Recorded Sex Assigned at Not on file Legal Sex Male 10:48 AM PRODUCT SAFETY TESTER Gender Identity Not on file Sexual Orientation Not on file documented as of this encounter Plan of Treatment Not on file documented as of this encounter Visit Diagnoses Diagnosis Acute myeloid leukemia in remission (HCC) Acute myeloid leukemia in remission Chemotherapy follow-up examination Examination of participant in clinical trial Other specified pre-operative examination Acute myeloid leukemia (HCC) Acute myeloid leukemia, without mention of having achieved remission documented in this encounter
--- OUTSIDE RECORDS SUMMARY | 2024-11-22 11:13 | XMS_ITS | Encounter Summary ---
Author Organization [facility] Facility Care Team Providers Care International Accounting Manager Name Role Phone Unavailable Primary Care Provider Unavailabl e Encounter Details Date Type Department Care Team (Late st Contact Info) Description 12/06/2009 - 11/17/2010 11:59 PM BIOSTATISTICS MANAGER Hospital Encounter [facility] Akhil Sharp MD [address] [place] [address] [address] Acute myeloid leukemia (HCC); Examination of participant in clinical trial; Cough; Pulmonary congestion and hypostasis; Calculus of gallbladder; Other specified disorders of biliary tract; Status post bone marrow transplant (HCC) Social History Tobacco Use Types Packs/Day Years Used Date Smoking Tobacco: Never Assessed Sex and Gender Information Value Date Recorded Sex Assigned at Not on file Legal Sex Male 10:48 AM BIOSTATISTICS MANAGER Gender Identity Not on file Sexual [...] Priority Date/Time Associated Diagnosis Comments XR CHEST 1 VIEW Routine 01/22/2013 2:18 PM BIOSTATISTICS MANAGER BRONCHOSCOPY 01/22/2013 documented in this encounter Results * XR Chest 1 Vw (01/22/2013 2:18 PM BIOSTATISTICS MANAGER) Anatomical Region Laterality Modality Body, Chest N/A Radiographic Tiffany ging 01/22/2013 2:18 PM BIOSTATISTICS MANAGER Narrative 01/22/2013 5:57 PM BIOSTATISTICS MANAGER Toño HONG M.D. HO FINAL REPORT The radiology attending physician has personally reviewed this study, and has reviewed and/or edited this written report and agrees with it. ACC# ??Date Time ??Exam [id number] Jan 22, 2013 14:18:00 [id number] Chest 1 view Frontal EXAMINATION: ?? CHEST 1 VIEW ?? IMPRESSION: ?? Comparison is made to a prior study dated January 07, 2013. Lungs are clear. No consolidation, pneumothorax, or pleural effusion. Heart size is normal. ?? Requested By: TIFFANY HELM ??MAngelitoDAngelito Dictated By: ?? Toño FERRARO ??on Jan ??2012 ??3:40P This document has been electronically signed by: GAMA HURD M.D. on Jan ??2012 ??5:57P Procedure Note Provider, MD Shmuel - 03/22/2017 Toño HONG M.D. HO FINAL REPORT The radiology attending physician has personally reviewed this study, and has reviewed and/or edited this written report and agrees with it. ACC# Date Time Exam [id number] Jan 22, 2013 14:18:00 [id number] Chest 1 view Frontal EXAMINATION: CHEST 1 VIEW IMPRESSION: Comparison is made to a prior study dated January 07, 2013. Lungs are clear. No consolidation, pneumothorax, or pleural effusion. Heart size is normal. Requested By: TIFFANY HELM M.D. Dictated By: Toño FERRARO on Jan 22 2013 3:40P This document has been electronically signed by: GAMA HURD M.D. on Jan 22 2013 5:57P us Historical Provider IMG XR PROCEDURES Final R esult * BRONCHOSCOPY (01/22/2013) Narrative 01/22/2013 Ordered by an unspecified provider. us Historical Provider BRONCH ORDERABLES Final R esult documented in this encounter Visit Diagnoses Diagnosis Acute myeloid leukemia (HCC) Acute myeloid leukemia, without mention of having achieved remission Examination of participant in clinical trial Cough Pulmonary congestion and hypostasis Calculus of gallbladder Calculus of gallbladder without mention of cholecystitis or obstruction Other specified disorders of biliary tract Status post bone marrow transplant (HCC) Bone marrow replaced by transplant documented in this encounter
--- OUTSIDE RECORDS SUMMARY | 2024-11-22 11:13 | XMS_ITS | Encounter Summary ---
Author Organization [facility] Facility Care Team Providers Care Hospitality Workers Name Role Phone Unavailable Primary Care Provider Unavailabl e Encounter Details Date Type Department Care Team (Late st Contact Info) Description 12/08/2010 - 12/08/2010 11:59 PM ENVIRONMENTAL CONSERVATION OFFICER Hospital Encounter [facility] Josué Armenta MD PhD [address] DIV BONE MARROW TRANSPLANT, [address] [address] Infectious and parasitic disease Social History Tobacco Use Types Packs/Day Years Used Date Smoking Tobacco: Never Assessed Sex and Gender Information Value Date Recorded Sex Assigned at Not on file Legal Sex Male 10:48 AM ENVIRONMENTAL CONSERVATION OFFICER Gender Identity Not on file Sexual Orientation Not on file documented as of this encounter Medications at Time of Discharge acyclovir (ZOVIRAX) 400 mg tabletIndications :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 05/24/2010 07/28/2018 documented as of this encounter Plan of Treatment Not on file documented as of this encounter Visit Diagnoses Diagnosis Infectious and parasitic disease Unspecified infectious and parasitic diseases documented in this encounter Additional Health Concerns 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 September 06, 2011 11/26/2010 11/26/2010/1 06/2021 5:00 AM CDT documented as of this encounter
--- OUTSIDE RECORDS SUMMARY | 2024-11-22 11:13 | XMS_ITS | Encounter Summary ---
Author Organization [facility] Facility Care Team Providers Care Statistical Reporting Analyst Name Role Phone Unavailable Primary Care Provider Unavailabl e Encounter Details Date Type Department Care Team (Late st Contact Info) Description 06/29/2009 - 06/29/2009 11:59 PM CDT Hospital Encounter [facility] Josué Armenta MD PhD [address] BONE MARROW TRANSPLANT, [address] [place] [address] Disorder of cranial nerve; Acute myeloid leukemia in remission (HCC); Chemotherapy follow-up examination; Examination of participant in clinical trial; Other specified pre-operative examination; Acute myeloid leukemia (HCC) Social History Tobacco Use Types Packs/Day Years Used Date Smoking Tobacco: Never Assessed Sex and Gender Information Value Date Recorded Sex Assigned at Not on file Legal Sex Male 10:48 AM HOT DIE PRESS FEEDER Gender Identity Not on file Sexual Orientation Not on file documented as of this encounter Plan of Treatment Not on file documented as of this encounter Visit Diagnoses Diagnosis Disorder of cranial nerve Unspecified disorder of cranial nerves Acute myeloid leukemia in remission (HCC) Acute myeloid leukemia in remission Chemotherapy follow-up examination Examination of participant in clinical trial Other specified pre-operative examination Acute myeloid leukemia (HCC) Acute myeloid leukemia, without mention of having achieved remission documented in this encounter
--- OUTSIDE RECORDS SUMMARY | 2024-11-22 11:13 | XMS_ITS | Encounter Summary ---
Author Organization [facility] Facility Care Team Providers Care Emergency Crew Supervisor Name Role Phone Unavailable Primary Care Provider Unavailabl e Encounter Details Date Type Department Care Team (Late st Contact Info) Description 05/25/2010 - 05/25/2010 11:59 PM CDT Hospital Encounter [facility] Josué Armenta MD PhD [address] DIV IM BONE MARROW TRANSPLANT, [address] [place] [id number] Acute myeloid leukemia (HCC) Social History Tobacco Use Types Packs/Day Years Used Date Smoking Tobacco: Never Assessed Sex and Gender Information Value Date Recorded Sex Assigned at Not on file Legal Sex Male 10:48 AM EXPANDED FUNCTION DENTAL ASSISTANT Gender Identity Not on file Sexual [...]
--- OUTSIDE RECORDS SUMMARY | 2024-11-22 11:13 | XMS_ITS | Encounter Summary ---
Author Organization [facility] Facility Care Team Providers Care Computer Information Systems Professor Name Role Phone Unavailable Primary Care Provider Unavailabl e Encounter Details Date Type Department Care Team (Late st Contact Info) Description 11/27/2010 - 11/17/2011 11:59 PM TAR BOILER Hospital Encounter [facility] Josué Armenta MD PhD [address] DIV BONE MARROW TRANSPLANT, [address] [address] Acute myeloid leukemia in remission (HCC); Examination of participant in clinical trial Social History Tobacco Use Types Packs/Day Years Used Date Smoking Tobacco: Never Assessed Sex and Gender Information Value Date Recorded Sex Assigned at Not on file Legal Sex Male 10:48 AM TAR BOILER Gender Identity Not on file Sexual Orientation [...] remission (HCC) Acute myeloid leukemia in remission Examination of participant in clinical trial documented in this encounter 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
--- OUTSIDE RECORDS SUMMARY | 2024-11-22 11:13 | XMS_ITS | Encounter Summary ---
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
--- OUTSIDE RECORDS SUMMARY | 2024-11-22 11:13 | XMS_ITS | Encounter Summary ---
Author Organization [facility] Facility Care Team Providers Care Cable Television Program Director Name Role Phone Unavailable Primary Care Provider Unavailabl e Encounter Details Date Type Department Care Team (Late st Contact Info) Description 06/12/2010 - 06/12/2010 11:59 PM CDT Hospital Encounter [facility] Josué Armenta MD PhD [address] DIV BONE MARROW TRANSPLANT, [address] [place] [address] Acute myeloid leukemia (HCC); Calculus of gallbladder; Other specified disorders of biliary tract; Status post bone marrow transplant (HCC) Social History Tobacco Use Types Packs/Day Years Used Date Smoking Tobacco: Never Assessed Sex and Gender Information Value Date Recorded Sex Assigned at Not on file Legal 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
--- OUTSIDE RECORDS SUMMARY | 2024-11-22 11:13 | XMS_ITS | Encounter Summary ---
Author Organization 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
--- OUTSIDE RECORDS SUMMARY | 2024-11-22 11:13 | XMS_ITS | Encounter Summary ---
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); Bacteremia; Other specified chronic obstructive airways disease; Examination of participant in clinical trial; Neutropenia (HCC); Adult failure to thrive; Other complications due to other vascular device, implant, and graft; Tobacco use disorder; Tinnitus; Other specified procedure as the cause of abnormal reaction of patient or of later complication; Other chest pain; Place of occurrence, residential institution; Acute bronchospasm; Hiccough; Arthralgia of temporomandibular joint; Fever presenting with conditions classified elsewhere; 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; Stomatitis and mucositis Social History Tobacco Use Types Packs/Day Years Used Date Smoking Tobacco: Never Assessed Sex and Gender Information Value Date Recorded Sex Assigned at Not on file Legal 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 Gender Identity Not on file Sexual Orientation Not on file documented as of this encounter Plan of Treatment Not on file documented as of this encounter Visit Diagnoses Diagnosis 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) Acute myeloid leukemia, in relapse Bacteremia Other specified chronic obstructive airways disease Examination of participant in clinical trial Neutropenia (HCC) Adult failure to thrive Other complications due to other vascular device, implant, and graft Tobacco use disorder Tinnitus Unspecified tinnitus Other specified procedure as the cause of abnormal reaction of patient or of later complication Other chest pain Place of occurrence, residential institution Acute bronchospasm Hiccough Arthralgia of temporomandibular joint Fever presenting with conditions classified elsewhere 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
--- OUTSIDE RECORDS SUMMARY | 2024-11-22 11:13 | XMS_ITS | Encounter Summary ---
Author Organization [facility] Facility Care Team Providers Care Infection Control Rn Name Role Phone Unavailable Primary Care Provider Unavailabl e Encounter Details Date Type Department Care Team (Late st Contact Info) Description 01/22/2013 7:18 PM EMT DRIVER - 02/18/2013 4:21 PM CDT Hospital Encounter [facility] Silva Gregg MD [address] DIV [employer], [address] [address] Carmen Alexander MD [address] [place] [address] Josué Del Valle MD PhD [address] [employer], [address] [place] [address] Septicemia (HCC); Acute pancreatitis; Other pulmonary embolism and infarction; Acute respiratory failure (HCC); Chronic hwiuv-kyllme-oqdg disease (HCC); Complication of stem cell transplant (HCC); Acute renal failure (HCC); Acute myeloid leukemia in remission (HCC); Acute venous embolism and thrombosis of deep vessels of distal lower extremity (HCC); Pulmonary collapse; Acidosis; Glucocorticoid deficiency (HCC); Severe sepsis (HCC); Tobacco use disorder; Calculus of bile duct; Other specified chronic obstructive airways disease; Thrombocytopenia (HCC); Other hypervolemia; Uncontrolled secondary diabetes mellitus; Surgical operation with transplant of whole organ causing abnormal patient reaction, or later complication; Adrenal cortical steroids causing adverse effect in therapeutic use; Vomiting alone; Procedure not carried out for other reasons Social History Tobacco Use Types Packs/Day Years Used Date Smoking Tobacco: Never Assessed Sex and Gender Information Value Date Recorded Sex Assigned at Not on file Legal Sex Male 10:48 AM EMT DRIVER Gender Identity Not on file Sexual Orientation Not on file documented as of this encounter Last Filed Vital Signs Vital Sign Reading Time Taken Comments Blood Pressure 100/66 02/18/2013 10:11 AM CDT Pulse 72 02/18/2013 11:43 AM CDT Temperature - - Respiratory Rate - - Oxygen Saturation 92% 02/18/2013 10: 11 AM CDT Inhaled Oxygen Concentration - - Weight 72.6 kg (159 lb 15.8 oz) 02/17/2013 8:00 PM CDT Height 178 cm (5' 10.08 ) 01/23/2013 1:18 AM EMT DRIVER Body Mass Index 22.96 01/23/2013 1:18 AM EMT DRIVER documented in this encounter Medications at Time [...] Name Priority Date/Time Associated Diagnosis Comments BLOOD GLUCOSE, POC Routine 02/18/2013 11 :58 AM CDT SERUM URIC ACID Routine 02/18/2013 11:00 AM CDT SERUM MAGNESIUM Routine 02/18/2013 11:00 AM CDT SERUM LACTATE DEHYDROGENASE (LDH) Routine 02/18/2013 11:00 AM CDT PLASMA PHOSPHORUS Routine 02/18/2013 11: 00 AM CDT PLASMA COMPREHENSIVE METABOLIC PANEL Routine 02/18/2013 11:00 AM CDT BLOOD CELL COUNT (CBC) Routine 3 11:00 AM CDT BLOOD ABO, RH, INDIRECT AB SCREEN Routine 02/18/2013 11:00 AM CDT BLOOD CELL MORPHOLOGIC EXAM Routine 02/18/2013 11:00 AM CDT BLOOD TACROLIMUS (FK-506) DRUG LEVEL Routine 02/18/2013 9:59 AM CDT BLOOD GLUCOSE, POC Routine 02/18/2013 8: 01 AM CDT DISCHARGE LABORATORY CUMULATIVE REPORT Routine 02/18/2013 12:00 AM CDT BLOOD GLUCOSE, POC Routine 02/17/2013 9: 18 PM CDT BLOOD GLUCOSE, POC Routine 02/17/2013 6: 26 PM CDT BLOOD GLUCOSE, POC Routine 02/17/2013 12 :43 PM CDT SERUM MAGNESIUM Routine 02/17/2013 11:15 AM CDT PLASMA PHOSPHORUS Routine 02/17/2013 11: 15 AM CDT PLASMA BASIC METABOLIC PANEL Routine 02/17/2013 11:15 AM CDT BLOOD CELL COUNT (CBC) Routine 3 11:15 AM CDT BLOOD CELL MORPHOLOGIC EXAM Routine 02/17/2013 11:15 AM CDT BLOOD GLUCOSE, POC Routine 02/17/2013 9: 43 AM CDT BLOOD GLUCOSE, POC Routine 02/16/2013 8: 40 PM CDT BLOOD GLUCOSE, POC Routine 02/16/2013 5: 06 PM CDT BLOOD GLUCOSE, POC Routine 02/16/2013 11 :46 AM CDT SERUM MAGNESIUM Routine 02/16/2013 10:30 AM CDT PLASMA PHOSPHORUS Routine 02/16/2013 10: 30 AM CDT PLASMA BASIC METABOLIC PANEL Routine 02/16/2013 10:30 AM CDT BLOOD CELL COUNT (CBC) Routine 3 10:15 AM CDT BLOOD CELL MORPHOLOGIC EXAM Routine 02/16/2013 10:15 AM CDT BLOOD GLUCOSE, POC Routine 02/16/2013 7: 39 AM CDT BLOOD TACROLIMUS (FK-506), TROUGH DRUG LEVEL Routine 02/15/2013 9:30 PM CDT BLOOD GLUCOSE, POC Routine 02/15/2013 9: 04 PM CDT BLOOD GLUCOSE, POC Routine 02/15/2013 4: 38 PM CDT BLOOD GLUCOSE, POC Routine 02/15/2013 2: 33 PM CDT SERUM URIC ACID Routine 02/15/2013 11:00 AM CDT SERUM MAGNESIUM Routine 02/15/2013 11:00 AM CDT SERUM LACTATE DEHYDROGENASE (LDH) Routine 02/15/2013 11:00 AM CDT PLASMA PROTHROMBIN TIME (PT) Routine 02/15/2013 11:00 AM CDT PLASMA PHOSPHORUS Routine 02/15/2013 11: 00 AM CDT PLASMA PARTIAL THROMBOPLASTIN TIME (PTT) Routine 02/15/2013 11:00 AM CDT PLASMA COMPREHENSIVE METABOLIC PANEL Routine 02/15/2013 11:00 AM CDT BLOOD CELL COUNT (CBC) Routine 3 11:00 AM CDT BLOOD ABO, RH, INDIRECT AB SCREEN Routine 02/15/2013 11:00 AM CDT BLOOD CELL MORPHOLOGIC EXAM Routine 02/15/2013 11:00 AM CDT CYTOMEGALOVIRUS (CMV) PCR, CDR Routine 02/15/2013 10:36 AM CDT BLOOD GLUCOSE, POC Routine 02/15/2013 7: 29 AM CDT ALL MICROBIOLOGY REPORT SECTION Routine 02/15/2013 12:00 AM CDT BLOOD GLUCOSE, POC Routine 02/14/2013 8: 46 PM CDT BLOOD GLUCOSE, POC Routine 02/14/2013 7: 09 PM CDT BLOOD GLUCOSE, POC Routine 02/14/2013 4: 25 PM CDT BLOOD GLUCOSE, POC Routine 02/14/2013 1: 29 PM CDT SERUM MAGNESIUM Routine 02/14/2013 11:00 AM CDT PLASMA PHOSPHORUS Routine 02/14/2013 11: 00 AM CDT PLASMA BASIC METABOLIC PANEL Routine 02/14/2013 11:00 AM CDT BLOOD CELL COUNT (CBC) Routine 3 11:00 AM CDT BLOOD CELL MORPHOLOGIC EXAM Routine 02/14/2013 11:00 AM CDT BLOOD GLUCOSE, POC Routine 02/14/2013 9: 06 AM CDT BLOOD GLUCOSE, POC Routine 02/13/2013 8: 57 PM CDT BLOOD GLUCOSE, POC Routine 02/13/2013 5: 58 PM CDT BLOOD GLUCOSE, POC Routine 02/13/2013 11 :29 AM CDT SERUM MAGNESIUM Routine 02/13/2013 10:30 AM CDT PLASMA PHOSPHORUS Routine 02/13/2013 10: 30 AM CDT PLASMA BASIC METABOLIC PANEL Routine 02/13/2013 10:30 AM CDT BLOOD CELL COUNT (CBC) Routine 3 10:30 AM CDT BLOOD CELL MORPHOLOGIC EXAM Routine 02/13/2013 10:30 AM CDT BLOOD GLUCOSE, POC Routine 02/13/2013 8: 29 AM CDT BLOOD GLUCOSE, POC Routine 02/13/2013 3: 05 AM CDT BLOOD GLUCOSE, POC Routine 02/12/2013 8: 33 PM CDT BLOOD GLUCOSE, POC Routine 02/12/2013 5: 54 PM CDT BLOOD GLUCOSE, POC Routine 02/12/2013 1: 52 PM CDT BLOOD GLUCOSE, POC Routine 02/12/2013 10 :56 AM CDT SERUM MAGNESIUM Routine 02/12/2013 10:45 AM CDT PLASMA PHOSPHORUS Routine 02/12/2013 10: 45 AM CDT PLASMA BASIC METABOLIC PANEL Routine 02/12/2013 10:45 AM CDT BLOOD CELL COUNT (CBC) Routine 3 10:45 AM CDT BLOOD CELL MORPHOLOGIC EXAM Routine 02/12/2013 10:45 AM CDT BLOOD GLUCOSE, POC Routine 02/12/2013 6: 04 AM CDT BLOOD GLUCOSE, POC Routine 02/12/2013 4: 32 AM CDT BLOOD GLUCOSE, POC Routine 02/12/2013 1: 39 AM CDT BLOOD GLUCOSE, POC Routine 02/11/2013 7: 59 PM CDT BLOOD GLUCOSE, POC Routine 02/11/2013 3: 08 PM CDT BLOOD ABO, RH, INDIRECT AB SCREEN Routine 02/11/2013 12:54 PM CDT SERUM URIC ACID Routine 02/11/2013 11:00 AM CDT SERUM MAGNESIUM Routine 02/11/2013 11:00 AM CDT SERUM LACTATE DEHYDROGENASE (LDH) Routine 02/11/2013 11:00 AM CDT PLASMA PHOSPHORUS Routine 02/11/2013 11: 00 AM CDT PLASMA COMPREHENSIVE METABOLIC PANEL Routine 02/11/2013 11:00 AM CDT MISLABELED TEST Routine 02/11/2013 11:00 AM CDT BLOOD CELL COUNT (CBC) Routine 3 11:00 AM CDT BLOOD CELL MORPHOLOGIC EXAM Routine 02/11/2013 11:00 AM CDT BLOOD GLUCOSE, POC Routine 02/11/2013 8: 08 AM CDT BLOOD GLUCOSE, POC Routine 02/11/2013 2: 32 AM CDT BLOOD GLUCOSE, POC Routine 02/10/2013 7: 29 PM CDT BLOOD GLUCOSE, POC Routine 02/10/2013 2: 39 PM CDT SERUM MAGNESIUM Routine 02/10/2013 11:00 AM CDT PLASMA PHOSPHORUS Routine 02/10/2013 11: 00 AM CDT PLASMA BASIC METABOLIC PANEL Routine 02/10/2013 11:00 AM CDT BLOOD CELL COUNT (CBC) Routine 3 11:00 AM CDT BLOOD CELL MORPHOLOGIC EXAM Routine 02/10/2013 11:00 AM CDT BLOOD GLUCOSE, POC Routine 02/10/2013 9: 59 AM CDT BLOOD GLUCOSE, POC Routine 02/10/2013 8: 08 AM CDT BLOOD GLUCOSE, POC Routine 02/10/2013 1: 47 AM CDT BLOOD GLUCOSE, POC Routine 02/09/2013 8: 02 PM CDT BLOOD GLUCOSE, POC Routine 02/09/2013 2: 07 PM CDT SERUM MAGNESIUM Routine 02/09/2013 10:00 AM CDT PLASMA PHOSPHORUS Routine 02/09/2013 10: 00 AM CDT PLASMA BASIC METABOLIC PANEL Routine 02/09/2013 10:00 AM CDT BLOOD TACROLIMUS (FK-506) DRUG LEVEL Routine 02/09/2013 10:00 AM CDT BLOOD CELL COUNT (CBC) Routine 3 10:00 AM CDT BLOOD CELL MORPHOLOGIC EXAM Routine 02/09/2013 10:00 AM CDT BLOOD GLUCOSE, POC Routine 02/09/2013 7: 58 AM CDT BLOOD GLUCOSE, POC Routine 02/09/2013 2: 27 AM CDT BLOOD GLUCOSE, POC Routine 02/08/2013 8: 07 PM CDT BLOOD GLUCOSE, POC Routine 02/08/2013 2: 28 PM CDT SERUM URIC ACID Routine 02/08/2013 11:00 AM CDT SERUM MAGNESIUM Routine 02/08/2013 11:00 AM CDT SERUM LACTATE DEHYDROGENASE (LDH) Routine 02/08/2013 11:00 AM CDT PLASMA PROTHROMBIN TIME (PT) Routine 02/08/2013 11:00 AM CDT PLASMA PHOSPHORUS Routine 02/08/2013 11: 00 AM CDT PLASMA PARTIAL THROMBOPLASTIN TIME (PTT) Routine 02/08/2013 11:00 AM CDT PLASMA COMPREHENSIVE METABOLIC PANEL Routine 02/08/2013 11:00 AM CDT BLOOD CELL COUNT (CBC) Routine 3 11:00 AM CDT BLOOD ABO, RH, INDIRECT AB SCREEN Routine 02/08/2013 11:00 AM CDT BLOOD CELL MORPHOLOGIC EXAM Routine 02/08/2013 11:00 AM CDT BLOOD GLUCOSE, POC Routine 02/08/2013 7: 51 AM CDT BLOOD GLUCOSE, POC Routine 02/08/2013 3: 23 AM CDT BLOOD GLUCOSE, POC Routine 02/07/2013 7: 45 PM CDT SERUM MAGNESIUM Routine 02/07/2013 5:00 PM CDT PLASMA PHOSPHORUS Routine 02/07/2013 5:0 0 PM CDT PLASMA BASIC METABOLIC PANEL Routine 02/07/2013 5:00 PM CDT BLOOD CELL COUNT (CBC) Routine 3 5:00 PM CDT BLOOD CELL MORPHOLOGIC EXAM Routine 02/07/2013 5:00 PM CDT BLOOD GLUCOSE, POC Routine 02/07/2013 1: 58 PM CDT XR CHEST 1 VIEW Routine 02/07/2013 12:34 PM CDT BLOOD GLUCOSE, POC Routine 02/07/2013 11 :32 AM CDT BLOOD GLUCOSE, POC Routine 02/07/2013 7: 40 AM CDT BLOOD GLUCOSE, POC Routine 02/07/2013 1: 53 AM CDT BLOOD GLUCOSE, POC Routine 02/06/2013 7: 35 PM CDT BLOOD GLUCOSE, POC Routine 02/06/2013 4: 43 PM CDT ABDOMINAL RADIOGRAPHY, FRONTAL (AP) Routine 02/06/2013 2:39 PM CDT BLOOD GLUCOSE, POC Routine 02/06/2013 11 :59 AM CDT SERUM MAGNESIUM Routine 02/06/2013 9:00 AM CDT PLASMA PHOSPHORUS Routine 02/06/2013 9:0 0 AM CDT PLASMA BASIC METABOLIC PANEL Routine 02/06/2013 9:00 AM CDT BLOOD TACROLIMUS (FK-506), TROUGH DRUG LEVEL Routine 02/06/2013 9:00 AM CDT BLOOD CELL COUNT (CBC) Routine 3 9:00 AM CDT BLOOD CELL MORPHOLOGIC EXAM Routine 02/06/2013 9:00 AM CDT BLOOD GLUCOSE, POC Routine 02/06/2013 7: 36 AM CDT BLOOD GLUCOSE, POC Routine 02/06/2013 6: 03 AM CDT BLOOD GLUCOSE, POC Routine 02/05/2013 11 :41 PM CDT BLOOD GLUCOSE, POC Routine 02/05/2013 6: 12 PM CDT BLOOD GLUCOSE, POC Routine 02/05/2013 1: 05 PM CDT BLOOD GLUCOSE, POC Routine 02/05/2013 11 :38 AM CDT SERUM MAGNESIUM Routine 02/05/2013 11:00 AM CDT PLASMA PHOSPHORUS Routine 02/05/2013 11: 00 AM CDT PLASMA BASIC METABOLIC PANEL Routine 02/05/2013 11:00 AM CDT BLOOD CELL COUNT (CBC) Routine 3 11:00 AM CDT BLOOD CELL MORPHOLOGIC EXAM Routine 02/05/2013 11:00 AM CDT BLOOD GLUCOSE, POC Routine 02/05/2013 5: 42 AM CDT ELECTROCARDIOGRAPHY (ECG) 02/05/2013 ELECTROCARDIOGRAPHY (ECG) 02/05/2013 BLOOD GLUCOSE, POC Routine 02/04/2013 11 :57 PM CDT BLOOD GLUCOSE, POC Routine 02/04/2013 6: 58 PM CDT 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 FILTER Routine 02/05/20 5:44 PM CDT BLOOD GLUCOSE, POC Routine 02/04/2013 12 :10 PM CDT SERUM URIC ACID Routine 02/04/2013 12:00 PM CDT SERUM MAGNESIUM Routine 02/04/2013 12:00 PM CDT SERUM LACTATE DEHYDROGENASE (LDH) Routine 02/04/2013 12:00 PM CDT PLASMA PHOSPHORUS Routine 02/04/2013 12: 00 PM CDT PLASMA COMPREHENSIVE METABOLIC PANEL Routine 02/04/2013 12:00 PM CDT BLOOD CELL COUNT (CBC) Routine 3 12:00 PM CDT BLOOD ABO, RH, INDIRECT AB SCREEN Routine 02/04/2013 12:00 PM CDT BLOOD CELL MORPHOLOGIC EXAM Routine 02/04/2013 12:00 PM CDT NJ TUBE PLACEMENT Routine 02/04/2013 11: 45 AM CDT NJ TUBE PLACEMENT Routine 02/04/2013 11: 45 AM CDT BLOOD GLUCOSE, POC Routine 02/04/2013 6: 32 AM CDT BLOOD GLUCOSE, POC Routine 02/03/2013 11 :49 PM CDT BLOOD GLUCOSE, POC Routine 02/03/2013 6: [address] CHEST W CONTRAST Routine 02/03/2013 2 :17 PM CDT PLASMA BASIC METABOLIC PANEL Routine 02/03/2013 12:15 PM CDT BLOOD GLUCOSE, POC Routine 02/03/2013 11 :48 AM CDT SERUM MAGNESIUM Routine 02/03/2013 11:00 AM CDT PLASMA PHOSPHORUS Routine 02/03/2013 11: 00 AM CDT PLASMA BASIC METABOLIC PANEL Routine 02/03/2013 11:00 AM CDT CRITICAL RESULT CALL BACK Routine 2012 11:00 AM CDT BLOOD CELL COUNT (CBC) Routine 3 11:00 AM CDT BLOOD CELL MORPHOLOGIC EXAM Routine 02/03/2013 11:00 AM CDT BLOOD GLUCOSE, POC Routine 02/03/2013 5: 56 AM CDT VASCULAR LABORATORY REPORT 02/03/2013 BLOOD GLUCOSE, POC Routine 02/02/2013 11 :54 PM CDT BLOOD GLUCOSE, POC Routine 02/02/2013 7: 59 PM CDT BLOOD GLUCOSE, POC Routine 02/02/2013 6: [address] ABDOMEN PELVIS W CONTRAST Routine 02/02/2013 2:08 PM CDT BLOOD GLUCOSE, POC Routine 02/02/2013 1: 05 PM CDT SERUM MAGNESIUM Routine 02/02/2013 10:40 AM CDT PLASMA PHOSPHORUS Routine 02/02/2013 10: 40 AM CDT PLASMA BASIC METABOLIC PANEL Routine 02/02/2013 10:40 AM CDT BLOOD CELL COUNT (CBC) Routine 3 10:40 AM CDT BLOOD CELL MORPHOLOGIC EXAM Routine 02/02/2013 10:40 AM CDT BLOOD GLUCOSE, POC Routine 02/02/2013 9: 49 AM CDT BLOOD GLUCOSE, POC Routine 02/02/2013 6: 25 AM CDT BLOOD TACROLIMUS (FK-506) DRUG LEVEL Routine 02/02/2013 6:00 AM CDT BLOOD GLUCOSE, POC Routine 02/01/2013 11 :43 PM CDT BLOOD GLUCOSE, POC Routine 02/01/2013 6: 00 PM CDT SERUM LIPASE Routine 02/01/2013 12:26 PM CDT BLOOD GLUCOSE, POC Routine 02/01/2013 11 :55 AM CDT CYTOMEGALOVIRUS (CMV) PCR, CDR Routine 02/01/2013 10:38 AM CDT SERUM URIC ACID Routine 02/01/2013 10:38 AM CDT SERUM MAGNESIUM Routine 02/01/2013 10:38 AM CDT SERUM LACTATE DEHYDROGENASE (LDH) Routine 02/01/2013 10:38 AM CDT PLASMA PROTHROMBIN TIME (PT) Routine 02/01/2013 10:38 AM CDT PLASMA PHOSPHORUS Routine 02/01/2013 10: 38 AM CDT PLASMA PARTIAL THROMBOPLASTIN TIME (PTT) Routine 02/01/2013 10:38 AM CDT PLASMA COMPREHENSIVE METABOLIC PANEL Routine 02/01/2013 10:38 AM CDT BLOOD CELL COUNT (CBC) Routine 3 10:38 AM CDT BLOOD ABO, RH, INDIRECT AB SCREEN Routine 02/01/2013 10:38 AM CDT BLOOD CELL MORPHOLOGIC EXAM Routine 02/01/2013 10:38 AM CDT BLOOD GLUCOSE, POC Routine 02/01/2013 5: 43 AM CDT ALL MICROBIOLOGY REPORT SECTION Routine 02/01/2013 12:00 AM CDT BLOOD GLUCOSE, POC Routine 01/31/2013 11 :35 PM CDT BLOOD GLUCOSE, POC Routine 01/31/2013 4: 37 PM CDT ABDOMINAL RADIOGRAPHY, FRONTAL (AP) Routine 01/31/2013 2:17 PM CDT BLOOD GLUCOSE, POC Routine 01/31/2013 12 :04 PM CDT BLOOD GLUCOSE, POC Routine 01/31/2013 11 :51 AM CDT BLOOD CONSISTENT RESULT Routine 02/01/20 13 11:00 AM CDT BLOOD CELL COUNT (CBC) Routine 3 11:00 AM CDT BLOOD CELL MORPHOLOGIC EXAM Routine 01/31/2013 11:00 AM CDT SERUM VANCOMYCIN DRUG LEVEL Routine 01/31/2013 10:00 AM CDT SERUM MAGNESIUM Routine 01/31/2013 10:00 AM CDT PLASMA PHOSPHORUS Routine 01/31/2013 10: 00 AM CDT PLASMA BASIC METABOLIC PANEL Routine 01/31/2013 10:00 AM CDT BLOOD TACROLIMUS (FK-506) DRUG LEVEL Routine 01/31/2013 10:00 AM CDT BLOOD GLUCOSE, POC Routine 01/31/2013 7: 43 AM CDT BLOOD GLUCOSE, POC Routine 01/31/2013 5: 57 AM CDT BLOOD GLUCOSE, POC Routine 01/31/2013 4: 05 AM CDT BLOOD GLUCOSE, POC Routine 01/31/2013 2: 18 AM CDT BLOOD GLUCOSE, POC Routine 01/30/2013 11 :55 PM CDT BLOOD GLUCOSE, POC Routine 01/30/2013 7: 55 PM CDT BLOOD GLUCOSE, POC Routine 01/30/2013 6: 16 PM CDT BLOOD GLUCOSE, POC Routine 01/30/2013 2: 18 PM CDT BLOOD GLUCOSE, POC Routine 01/30/2013 12 :20 PM CDT VRE SURVEILLANCE SCREEN, CDR Routine 01/30/2013 12:00 PM CDT CLOSTRIDIUM DIFFICILE TOXIN, CDR Routine 01/30/2013 12:00 PM CDT BLOOD GLUCOSE, POC Routine 01/30/2013 8: 20 AM CDT CYTOMEGALOVIRUS (CMV) PCR, CDR Routine 01/30/2013 7:50 AM CDT SERUM VANCOMYCIN, TROUGH DRUG LEVEL Routine 01/30/2013 7:50 AM CDT SERUM MAGNESIUM Routine 01/30/2013 7:50 AM CDT PLASMA PHOSPHORUS Routine 01/30/2013 7:5 0 AM CDT PLASMA BASIC METABOLIC PANEL Routine 01/30/2013 7:50 AM CDT CRITICAL RESULT CALL BACK Routine 2012 7:50 AM CDT BLOOD CELL COUNT (CBC) Routine 3 7:50 AM CDT BLOOD CELL MORPHOLOGIC EXAM Routine 01/30/2013 7:50 AM CDT BLOOD TACROLIMUS (FK-506) DRUG LEVEL Routine 01/30/2013 6:00 AM CDT ALL MICROBIOLOGY REPORT SECTION Routine 01/30/2013 12:00 AM CDT ALL MICROBIOLOGY REPORT SECTION Routine 01/30/2013 12:00 AM CDT ALL MICROBIOLOGY REPORT SECTION Routine 01/30/2013 12:00 AM CDT BLOOD GLUCOSE, POC Routine 01/29/2013 9: 20 PM CDT BLOOD GLUCOSE, POC Routine 01/29/2013 4: 40 PM CDT BLOOD GLUCOSE, POC Routine 01/29/2013 11 :50 AM CDT SERUM MAGNESIUM Routine 01/29/2013 11:08 AM CDT PLASMA PHOSPHORUS Routine 01/29/2013 11: 08 AM CDT PLASMA BASIC METABOLIC PANEL Routine 01/29/2013 11:08 AM CDT BLOOD CONSISTENT RESULT Routine 01/30/20 13 11:00 AM CDT BLOOD CELL COUNT (CBC) Routine 3 11:00 AM CDT BLOOD CELL MORPHOLOGIC EXAM Routine 01/29/2013 11:00 AM CDT BLOOD GLUCOSE, POC Routine 01/29/2013 7: 30 AM CDT BLOOD TACROLIMUS (FK-506) DRUG LEVEL Routine 01/29/2013 6:05 AM CDT BLOOD GLUCOSE, POC Routine 01/28/2013 9: 03 PM CDT BLOOD GLUCOSE, POC Routine 01/28/2013 4: 42 PM CDT BLOOD GLUCOSE, POC Routine 01/28/2013 11 :50 AM CDT NJ TUBE PLACEMENT Routine 01/28/2013 11: 16 AM CDT NJ TUBE PLACEMENT Routine 01/28/2013 11: 16 AM CDT BLOOD GLUCOSE, POC Routine 01/28/2013 8: 04 AM CDT SERUM VANCOMYCIN, TROUGH DRUG LEVEL Routine 01/28/2013 5:30 AM CDT SERUM URIC ACID Routine 01/28/2013 5:30 AM CDT SERUM MAGNESIUM Routine 01/28/2013 5:30 AM CDT SERUM LACTATE DEHYDROGENASE (LDH) Routine 01/28/2013 5:30 AM CDT PLASMA PHOSPHORUS Routine 01/28/2013 5:3 0 AM CDT PLASMA COMPREHENSIVE METABOLIC PANEL Routine 01/28/2013 5:30 AM CDT BLOOD TACROLIMUS (FK-506), TROUGH DRUG LEVEL Routine 01/28/2013 5:30 AM CDT BLOOD CELL COUNT (CBC) Routine 3 5:30 AM CDT BLOOD ABO, RH, INDIRECT AB SCREEN Routine 01/28/2013 5:30 AM CDT BLOOD CELL MORPHOLOGIC EXAM Routine 01/28/2013 5:30 AM CDT XR CHEST 1 VIEW Routine 01/28/2013 3:05 AM CDT BLOOD GLUCOSE, POC Routine 01/27/2013 8: 57 PM CDT BLOOD GLUCOSE, POC Routine 01/27/2013 5: 12 PM CDT SERUM MAGNESIUM Routine 01/27/2013 1:22 PM CDT PLASMA PHOSPHORUS Routine 01/27/2013 1:2 2 PM CDT PLASMA BASIC METABOLIC PANEL Routine 01/27/2013 1:22 PM CDT BLOOD CONSISTENT RESULT Routine 01/28/20 13 1:22 PM CDT BLOOD CELL COUNT (CBC) Routine 3 1:22 PM CDT BLOOD CELL MORPHOLOGIC EXAM Routine 01/27/2013 1:22 PM CDT BLOOD GLUCOSE, POC Routine 01/27/2013 12 :20 PM CDT SERUM VANCOMYCIN, TROUGH DRUG LEVEL Routine 01/27/2013 8:44 AM CDT PLASMA POTASSIUM Routine 01/27/2013 8:44 AM CDT CRITICAL RESULT CALL BACK Routine 2012 8:44 AM CDT BLOOD GLUCOSE, POC Routine 01/27/2013 7: 52 AM CDT XR CHEST 1 VIEW Routine 01/27/2013 5:23 AM CDT ELECTROCARDIOGRAPHY (ECG) 01/27/2013 ELECTROCARDIOGRAPHY (ECG) 01/27/2013 BLOOD GLUCOSE, POC Routine 01/26/2013 9: 06 PM CDT BLOOD GLUCOSE, POC Routine 01/26/2013 6: 12 PM CDT BLOOD GLUCOSE, POC Routine 01/26/2013 11 :53 AM CDT SERUM ANTI-HEPARIN PLATELET FACTOR 4 (PF4) AB Routine 01/26/2013 11:10 AM CDT PLASMA PROTHROMBIN TIME (PT) Routine 01/26/2013 11:10 AM CDT PLASMA PARTIAL THROMBOPLASTIN TIME (PTT) Routine 01/26/2013 11:10 AM CDT PLASMA FIBRINOGEN Routine 01/26/2013 11: 10 AM CDT BLOOD GLUCOSE, POC Routine 01/26/2013 7: 56 AM CDT XR CHEST 1 VIEW Routine 01/26/2013 4:15 AM CDT SERUM MAGNESIUM Routine 01/25/2013 11:15 PM CDT SERUM LIPASE Routine 01/25/2013 11:15 PM CDT PLASMA PHOSPHORUS Routine 01/25/2013 11: 15 PM CDT PLASMA HEPATIC FUNCTION PANEL Routine 01/25/2013 11:15 PM CDT PLASMA BASIC METABOLIC PANEL Routine 01/25/2013 11:15 PM CDT BLOOD CELL COUNT (CBC) Routine 3 11:15 PM CDT BLOOD GLUCOSE, POC Routine 01/25/2013 10 :[address] ABDOMEN PELVIS W CONTRAST Routine 01/25/2013 4:[address] CHEST W CONTRAST Routine 01/25/2013 4 :40 PM CDT BLOOD GLUCOSE, POC Routine 01/25/2013 4: 23 PM CDT BLOOD GLUCOSE, POC Routine 01/25/2013 12 :04 PM CDT BLOOD GLUCOSE, POC Routine 01/25/2013 8: 05 AM CDT XR CHEST 1 VIEW Routine 01/25/2013 5:40 AM CDT SERUM CALCIUM, IONIZED Routine 3 1:40 AM EMT DRIVER BLOOD GAS, POINT OF CARE, ARTERIAL Routine 01/25/2013 1:32 AM EMT DRIVER SERUM VANCOMYCIN DRUG LEVEL Routine 01/24/2013 11:10 PM EMT DRIVER SERUM MAGNESIUM Routine 01/24/2013 11:10 PM EMT DRIVER PLASMA PHOSPHORUS Routine 01/24/2013 11: 10 PM EMT DRIVER PLASMA COMPREHENSIVE METABOLIC PANEL Routine 01/24/2013 11:10 PM EMT DRIVER PLASMA PROTHROMBIN TIME (PT) Routine 01/24/2013 10:30 PM EMT DRIVER PLASMA PARTIAL THROMBOPLASTIN TIME (PTT) Routine 01/24/2013 10:30 PM EMT DRIVER BLOOD CELL COUNT (CBC) Routine 3 10:30 PM EMT DRIVER BLOOD CELL MORPHOLOGIC EXAM Routine 01/24/2013 10:30 PM EMT DRIVER PLASMA BASIC METABOLIC PANEL Routine 01/24/2013 9:50 PM EMT DRIVER BLOOD TACROLIMUS ([id number]) DRUG LEVEL Routine 01/24/2013 8:55 PM EMT DRIVER BLOOD GLUCOSE, POC Routine 01/24/2013 8: 04 PM EMT DRIVER BLOOD GLUCOSE, POC Routine 01/24/2013 4: 10 PM EMT DRIVER URINE UREA NITROGEN Routine 01/24/2013 3 :15 PM EMT DRIVER URINE SODIUM Routine 01/24/2013 3:15 PM EMT DRIVER URINE POTASSIUM Routine 01/24/2013 3:15 PM EMT DRIVER URINE CREATININE Routine 01/24/2013 3:15 PM EMT DRIVER URINE CHLORIDE Routine 01/24/2013 3:15 PM EMT DRIVER SERUM LIPASE Routine 01/24/2013 12:30 PM EMT DRIVER PLASMA BASIC METABOLIC PANEL Routine 01/24/2013 12:30 PM EMT DRIVER CRITICAL RESULT CALL BACK Routine 2012 12:30 PM EMT DRIVER BLOOD GLUCOSE, POC Routine 01/24/2013 12 :09 PM EMT DRIVER BLOOD GAS, POINT OF CARE, ARTERIAL Routine 01/24/2013 10:42 AM EMT DRIVER BLOOD GLUCOSE, POC Routine 01/24/2013 8: 17 AM EMT DRIVER BLOOD GAS, POINT OF CARE, ARTERIAL Routine 01/24/2013 6:01 AM EMT DRIVER PLASMA LACTIC ACID Routine 01/24/2013 4: 48 AM EMT DRIVER BLOOD GAS, POINT OF CARE, VENOUS Routine 01/24/2013 4:05 AM EMT DRIVER XR CHEST 1 VIEW Routine 01/24/2013 3:44 AM EMT DRIVER PLASMA COMPREHENSIVE METABOLIC PANEL Routine 01/24/2013 2:00 AM EMT DRIVER BLOOD CELL COUNT (CBC) Routine 3 2:00 AM EMT DRIVER BLOOD CELL MORPHOLOGIC EXAM Routine 01/24/2013 2:00 AM EMT DRIVER BLOOD GLUCOSE, POC Routine 01/24/2013 1: 56 AM EMT DRIVER BLOOD GAS, POINT OF CARE, ARTERIAL Routine 01/24/2013 1:56 AM EMT DRIVER XR CHEST 1 VIEW Routine 01/23/2013 7:07 PM EMT DRIVER BLOOD CULTURE, CDR Routine 01/23/2013 6: 45 PM EMT DRIVER SERUM TROPONIN I Routine 01/23/2013 6:45 PM EMT DRIVER PLASMA LACTIC ACID Routine 01/23/2013 6: 45 PM EMT DRIVER BLOOD B-TYPE NATRIURETIC PEPTIDE (BNP) Routine 01/23/2013 6:45 PM EMT DRIVER BLOOD CULTURE, CDR Routine 01/23/2013 6: 25 PM EMT DRIVER BLOOD GAS, ARTERIAL Routine 01/23/2013 6 :25 PM EMT DRIVER BLOOD GLUCOSE, POC Routine 01/23/2013 5: 51 PM EMT DRIVER URINE (AEROBIC) CULTURE, CDR Routine 01/23/2013 4:20 PM EMT DRIVER URINE MICROSCOPY Routine 01/23/2013 4:20 PM EMT DRIVER URINALYSIS Routine 01/23/2013 4:20 PM EMT DRIVER PLASMA CORTISOL Routine 01/23/2013 3:10 PM EMT DRIVER CRITICAL RESULT CALL BACK Routine 2012 3:10 PM EMT DRIVER BLOOD LACTIC ACID Routine 01/23/2013 3:1 0 PM EMT DRIVER XR CHEST 1 VIEW Routine 01/23/2013 1:51 PM EMT DRIVER SERUM LIPASE Routine 01/23/2013 1:30 PM EMT DRIVER SERUM LIPASE Routine 01/23/2013 1:30 PM EMT DRIVER SERUM CALCIUM, IONIZED Routine 3 1:30 PM EMT DRIVER PLASMA PROTHROMBIN TIME (PT) Routine 01/23/2013 1:30 PM EMT DRIVER PLASMA PARTIAL THROMBOPLASTIN TIME (PTT) Routine 01/23/2013 1:30 PM EMT DRIVER PLASMA COMPREHENSIVE METABOLIC PANEL Routine 01/23/2013 1:30 PM EMT DRIVER CRITICAL RESULT CALL BACK Routine 2012 1:30 PM EMT DRIVER BLOOD CELL COUNT (CBC) Routine 3 1:30 PM EMT DRIVER BLOOD GLUCOSE, POC Routine 01/23/2013 12 :11 PM EMT DRIVER BLOOD GLUCOSE, POC Routine 01/23/2013 11 :35 AM EMT DRIVER US ABDOMEN COMPLETE Routine 01/23/2013 1 1:01 AM EMT DRIVER BLOOD GLUCOSE, POC Routine 01/23/2013 10 :00 AM EMT DRIVER XR ABDOMEN 2 VW Routine 01/23/2013 9:47 AM EMT DRIVER BLOOD CELL COUNT Routine 01/23/2013 7:00 AM EMT DRIVER BLOOD TACROLIMUS ([id number]) DRUG LEVEL Routine 01/23/2013 6:00 AM EMT DRIVER BLOOD GLUCOSE, POC Routine 01/23/2013 12 :01 AM EMT DRIVER ELECTROCARDIOGRAPHY (ECG) 01/23/2013 ELECTROCARDIOGRAPHY (ECG) 01/23/2013 ELECTROCARDIOGRAPHY (ECG) 01/23/2013 ELECTROCARDIOGRAPHY (ECG) 01/23/2013 ELECTROCARDIOGRAPHY (ECG) 01/23/2013 ALL MICROBIOLOGY REPORT SECTION Routine 01/23/2013 12:00 AM EMT DRIVER ALL MICROBIOLOGY REPORT SECTION Routine 01/23/2013 12:00 AM EMT DRIVER ALL MICROBIOLOGY REPORT SECTION Routine 01/23/2013 12:00 AM EMT DRIVER XR ABDOMEN 2 VW Routine 01/22/2013 11:07 PM EMT DRIVER SERUM TROPONIN I Routine 01/22/2013 9:01 PM EMT DRIVER SERUM LIPID PANEL Routine 01/22/2013 9:0 1 PM EMT DRIVER SERUM LIPASE Routine 01/22/2013 9:01 PM EMT DRIVER SERUM HELICOBACTER PYLORI AB, IGG Routine 01/22/2013 9:01 PM EMT DRIVER SERUM CHOLESTEROL, LDL Routine 3 9:01 PM EMT DRIVER PLASMA PROTHROMBIN TIME (PT) Routine 01/22/2013 9:01 PM EMT DRIVER PLASMA PARTIAL THROMBOPLASTIN TIME (PTT) Routine 01/22/2013 9:01 PM EMT DRIVER PLASMA HEPATIC FUNCTION PANEL Routine 01/22/2013 9:01 PM EMT DRIVER PLASMA BASIC METABOLIC PANEL Routine 01/22/2013 9:01 PM EMT DRIVER PLASMA AMYLASE Routine 01/22/2013 9:01 PM EMT DRIVER CRITICAL RESULT CALL BACK Routine 2012 9:01 PM EMT DRIVER BLOOD HEMOGLOBIN A1C Routine 01/22/2013 9:01 PM EMT DRIVER BLOOD CELL COUNT (CBC) Routine 3 9:01 PM EMT DRIVER BLOOD ABO, RH, INDIRECT AB SCREEN Routine 01/22/2013 9:01 PM EMT DRIVER BLOOD CELL MORPHOLOGIC EXAM Routine 01/22/2013 9:01 PM EMT DRIVER ELECTROCARDIOGRAPHY (ECG) 01/22/2013 ELECTROCARDIOGRAPHY (ECG) 01/22/2013 documented in this encounter Results * Blood glucose, POC (02/18/2013 11:58 AM CDT) Pathologist [facility] Glucose, POC, bld 144 65 - 199 mg/dl HISTORICAL RESULTS Blood specimen (specimen) 02/18/2013 11:58 AM CDT us Silva Taylor MD LAB BLOOD ORDERABLES F inal Result Performing Organization Address [facility] Co de Phone Number HISTORICAL RESULTS * (ABNORMAL) Plasma comprehensive metabolic panel (02/18/2013 11:00 AM CDT) Pathologist [facility] Sodium 138 135 - 145 mmol/L HISTORICAL RESULTS K, pl 3.8 3.3 - 4.9 mmol/L HISTORICAL RESULTS Chloride 94(L) 97 - 110 mmol/L HISTORICAL RESULTS CO2 36(H) 22 - 32 mmol/L HISTORICAL RESULTS A. gap 8 0 - 16 mmol/L HISTORICAL RESULTS Glucose 94 65 - 199 mg/dl HISTORICAL RESULTS BUN 11 8 - 25 mg/dl HISTORICAL RESULTS Creatinine 1.33(H) 0.70 - 1.30 mg/dl HISTORICAL RESULTS Calcium 10.1 8.6 - 10.3 mg/dl HISTORICAL RESULTS Protein, pl 6.8 6.5 - 8.5 g/dl HISTORICAL RESULTS Alb 3.9 3.6 - 5.0 g/dl HISTORICAL RESULTS Bilirubin 0.3 0.3 - 1.1 mg/dl HISTORICAL RESULTS Alk phos 159(H) 38 - 126 Units/L HISTORICAL RESULTS AST 38 11 - 47 Units/L HISTORICAL RESULTS ALT 58(H) 7 - 53 Units/L HISTORICAL RESULTS Plasma 02/18/2013 11:0 0 AM CDT Ni Agarwal LAB BLOOD ORDERABLES Final R esult Performing Organization Address [facility]/ZIP Co de Phone Number HISTORICAL RESULTS * (ABNORMAL) Serum lactate dehydrogenase (LDH) (02/18/2013 11:00 AM CDT) Lactate dehydrogenase (LDH) 279(H) 100 - 250 Units/L HISTORICAL RESULTS Serum 02/18/2013 11:0 0 AM CDT Ni Agarwal LAB BLOOD ORDERABLES Final R esult Performing Organization Address [facility] de Phone Number HISTORICAL RESULTS * Plasma phosphorus (02/18/2013 11:00 AM CDT) Phosphorus, pl 3.1 2.3 - 4.3 mg/dl HISTORICAL RESULTS Plasma 02/18/2013 11:0 0 AM CDT Ni Agarwal LAB BLOOD ORDERABLES Final R [facility] Performing Organization Address [facility] de Phone Number HISTORICAL RESULTS * Serum uric acid (02/18/2013 11:00 AM CDT) Uric acid 7.9 3.0 - 8.0 mg/dl HISTORICAL RESULTS Serum 02/18/2013 11:0 0 AM CDT Ni Agarwal LAB BLOOD ORDERABLES Final R [facility] Performing Organization Address [facility] de Phone Number HISTORICAL RESULTS * Serum magnesium (02/18/2013 11:00 AM CDT) Magnesium 1.4 1.4 - 2.5 mg/dl HISTORICAL RESULTS Serum 02/18/2013 11:0 0 AM CDT Ni Agarwal LAB BLOOD ORDERABLES Final R [facility] Performing Organization Address [facility] de Phone Number HISTORICAL RESULTS * (ABNORMAL) Blood cell count (CBC) (02/18/2013 11:00 AM CDT) WBC 12.6(H) 3.8 - 9.8 K/cumm HISTORICAL RESULTS RBC 2.95(L) 4.50 - 5.70 M/cumm HISTORICAL RESULTS Hgb 10.6(L) 13.8 - 17.2 g/dl HISTORICAL RESULTS Hct 31.8(L) 40.7 - 50.3 % HISTORICAL RESULTS MCV 107.7(H) 80.0 - 97.6 fl HISTORICAL RESULTS MCH 36.1(H) 26.7 - 33.7 pg HISTORICAL RESULTS MCHC 33.5 32.7 - 35.5 g/dl HISTORICAL RESULTS Rdw 16.6(H) 11.8 - 14.6 % HISTORICAL RESULTS Platelets 288 140 - 440 K/cumm HISTORICAL RESULTS MPV 8.6 6.8 - 10.4 fl HISTORICAL RESULTS Blood specimen (specimen) 02/18/2013 11:00 AM CDT Ni Agarwal LAB BLOOD ORDERABLES Final R esult HISTORICAL RESULTS * Blood ABO, Rh, indirect ab screen (02/18/2013 11:00 AM CDT) Ursula, indirect Negative HISTORICAL RESULTS ABO, Rho(D) A Positive HISTORI RHODA RESULTS Blood specimen (specimen) 02/18/2013 11:00 AM CDT Ni Agarwal LAB BLOOD ORDERABLES Final R esult HISTORICAL RESULTS * (ABNORMAL) Blood cell morphologic exam (02/18/2013 11:00 AM CDT) WBC counted 100 # of cells HISTORI RHODA RESULTS Neutrophils 84(H) 44 - 80 % HISTORIC AL RESULTS Lymphocytes 13 13 - 44 % HISTORIC AL RESULTS Monos 1(L) 2 - 8 % HISTORICAL RESULTS Eosinophils 2 0 - 6 % HISTORIC AL RESULTS Basophils 0 0 - 3 % HISTORICAL RESULTS NRBC 1(H) 0 - 0 #/100 WBC HISTORICAL RESULTS Large platelets 1(H) 0 - 0 /hpf HIS TORICAL RESULTS Platelet estimate Adequate Adequate HISTORICAL RESULTS Platelet morphology Clumped(A) HISTORICAL RESULTS Macrocytosis 3-7/HPF(A) None Seen HISTOR ICAL RESULTS Microcytosis 3-7/HPF(A) None Seen HISTOR ICAL RESULTS Polychromasia 3-7/HPF(A) None Seen HISTO RICAL RESULTS Blood specimen (specimen) 02/18/2013 11:00 AM CDT us Ni Agarwal LAB BLOOD ORDERABLES Final R esult Performing Organization Address [facility] de Phone Number HISTORICAL RESULTS * Blood tacrolimus (FK-[id number]) drug level (02/18/2013 9:59 AM CDT) Tacrolimus 7.5 ng/ml HISTORICA L RESULTS Comment: Interpretive Data This test was developed using an analyte specific reagent. ??Its performance characteristics were determined by the [facility] in a manner consistent with CLIA requirements. This test has not been cleared or approved by the U.S. Food and Drug Administration. Current interpretive data was last revised on 2012. Blood specimen (specimen) 02/18/2013 9:59 AM CDT Derrick Dominguez MD LAB BLOOD ORDERABLES Pilar l Result Performing Organization Address [facility] de Phone Number HISTORICAL RESULTS * Blood glucose, POC (02/18/2013 8:01 AM CDT) Glucose, POC, bld 173 65 - 199 mg/dl HISTORICAL RESULTS Blood specimen (specimen) 02/18/2013 8:01 AM CDT Silva Taylor MD LAB BLOOD ORDERABLES F inal Result Performing Organization Address [facility] de Phone Number HISTORICAL RESULTS * Discharge Laboratory Cumulative Report (02/18/2013 12:00 AM CDT) 02/18/2013 Narrative HISTORICAL RESULTS - 02/19/2013 3:20 AM CDT ?[facility] ?Department of Laboratories ? [address] [facility] [place] ? [place] [address] Patient Name: ??BRI JONES Rec Number: [id number] Fin Number: ?[id number] Date: ?1965 Sex/Age: ? Male 47 years Admit Date: ?01/22/2013 Discharge Date: 02/18/2013 Doctor: ?Josué Del Valle Facility: ?[facility] Location: ?OTHER Chart Printed: 02/19/2013 03:20 ?? * Abnormal ?? C Critical ?? f Footnote ?? ^ Corrected ?? L Low ?? H High ? i Interp Data ?? @ Reference Lab ?Chart Type:Cumulative ?BLOOD GASES ? Arterial Blood Gases ?Test: pH ? pCO2 ? pO2 ? Total CO2 ? Reference: [7.35-7.45] ??[35-45] ??[80-105] ??[21-30] ? Units: ?mmHg ? mmHg ?mmol/L 01/23/2013 ?? 18:25:00 ?? 7.24 ??L ?42 ? 122 ??H ?19 ??L ?Test: A-a Gradient ?% iO2 Art ? Vol iO2 Art ? Reference: ? Units: mmHg ?% ? L 01/23/2013 ?? 18:25:00 ?? Not Applicable ??Not Applicable ??Not Applicable ? SELECTED ELECTROLYTES ?Test: Sodium ? Plasma Potassium ??Chloride ? Reference: [135-145] ??[3.3-4.9] ? [97-110] ? Units: mmol/L ? mmol/L ?mmol/L 02/18/2013 ?? 11:00:00 ?? 138 ?3.8 ? 94 ??L 02/17/2013 ?? 11:15:00 ?? 138 ?3.4 ? 94 ??L 02/16/2013 ?? 10:30:00 ?? 140 ?3.7 ? 96 ??L 02/15/2013 ?? 11:00:00 ?? 139 ?3.7 ? 94 ??L 02/14/2013 ?? 11:00:00 ?? 136 ?3.9 ? 93 ??L 02/13/2013 ?? 10:30:00 ?? 140 ?3.9 ? 97 02/12/2013 ?? 10:45:00 ?? 142 ?4.1 ? 99 02/11/2013 ?? 11:00:00 ?? 136 ?4.3 ? 96 ??L 02/10/2013 ?? 11:00:00 ?? 139 ?4.7 ? 99 02/09/2013 ?? 10:00:00 ?? 139 ?4.6 ? 99 02/08/2013 ?? 11:00:00 ?? 139 ?4.6 ? 95 ??L 02/07/2013 ?? 17:00:00 ?? 139 ?4.9 ? 95 ??L 02/06/2013 ?? 09:00:00 ?? 138 ?4.5 ? 94 ??L 02/05/2013 ?? 11:00:00 ?? 135 ?3.7 ? 90 ??L 02/04/2013 ?? 12:00:00 ?? 136 ?4.4 ? 89 ??L 02/03/2013 ?? 12:15:00 ?? 136 ?4.0 ? 91 ??L 02/03/2013 ?? 11:00:00 ?? 125 ??L ? 3.6 ? 84 ??L 02/02/2013 ?? 10:40:00 ?? 137 ?3.8 ? 93 ??L ? SELECTED ELECTROLYTES ?Test: Sodium ? Plasma Potassium ??Chloride ? Reference: [135-145] ??[3.3-4.9] ? [97-110] ? Units: mmol/L ? mmol/L ?mmol/L 02/01/2013 ?? 10:38:00 ?? 135 ?4.0 ? 94 ??L 01/31/2013 ?? 11:00:00 ?? 140 ?3.9 ? 102 01/30/2013 ?? 07:50:00 ?? 137 ?3.9 ? 101 01/29/2013 ?? 11:08:00 ?? 137 ?3.7 ? 101 01/28/2013 ?? 05:30:00 ?? 139 ?3.4 ? 101 01/27/2013 ?? 13:22:00 ?? 141 ?3.7 ? 105 01/27/2013 ?? 08:44:00 ?3.7 01/25/2013 ?? 23:15:00 ?? 145 ?3.5 ? 110 01/24/2013 ?? 23:10:00 ?? 145 ?3.9 ? 108 01/24/2013 ?? 21:50:00 ?? 146 ??H ? 3.6 ? 108 01/24/2013 ?? 12:30:00 ?? 143 ?4.6 ? 109 01/24/2013 ?? 02:00:00 ?? 140 ?5.6 ??H ?113 ??H 01/23/2013 ?? 13:30:00 ?? 141 ?4.6 ? 108 01/22/2013 ?? 21:01:00 ?? 138 ?5.0 ??Hf ? 104 01/22/2013 21:01:00 ??Plasma Potassium: Hemolyzed; (++); potassium value may be falsely elevated by as much as 0.3 - 0.5 mmol/L. Suggest redraw and reanalysis. ?Test: Total CO2 ??Anion Gap ? Reference: [22-32] ?[0-16] ? Units: mmol/L ? mmol/L 02/18/2013 ?? 11:00:00 ?? 36 ??H ?8 02/17/2013 ?? 11:15:00 ?? 35 ??H ?9 02/16/2013 ?? 10:30:00 ?? 38 ??H ?6 02/15/2013 ?? 11:00:00 ?? 35 ??H ?10 02/14/2013 ?? 11:00:00 ?? 34 ??H ?9 02/13/2013 ?? 10:30:00 ?? 36 ??H ?7 02/12/2013 ?? 10:45:00 ?? 36 ??H ?7 02/11/2013 ?? 11:00:00 ?? 36 ??H ?4 02/10/2013 ?? 11:00:00 ?? 36 ??H ?4 02/09/2013 ?? 10:00:00 ?? 36 ??H ?4 02/08/2013 ?? 11:00:00 ?? 40 ??H ?5 02/07/2013 ?? 17:00:00 ?? 41 ??H ?3 02/06/2013 ?? 09:00:00 ?? 38 ??H ?6 02/05/2013 ?? 11:00:00 ?? 41 ??H ?4 02/04/2013 ?? 12:00:00 ?? 39 ??H ?8 02/03/2013 ?? 12:15:00 ?? 39 ??H ?6 02/03/2013 ?? 11:00:00 ?? 34 ??H ?7 02/02/2013 ?? 10:40:00 ?? 38 ??H ?6 02/01/2013 ?? 10:38:00 ?? 34 ??H ?7 01/31/2013 ?? 11:00:00 ?? 34 ??H ?4 01/30/2013 ?? 07:50:00 ?? 29 ? 7 01/29/2013 ?? 11:08:00 ?? 27 ? 9 01/28/2013 ?? 05:30:00 ?? 26 ? 12 01/27/2013 ?? 13:22:00 ?? 26 ? 10 01/25/2013 ?? 23:15:00 ?? 27 ? 8 01/24/2013 ?? 23:10:00 ?? 26 ? 11 01/24/2013 ?? 21:50:00 ?? 27 ? 11 01/24/2013 ?? 12:30:00 ?? 22 ? 12 01/24/2013 ?? 02:00:00 ?? 16 ??L ?11 01/23/2013 ?? 13:30:00 ?? 22 ? 11 01/22/2013 ?? 21:01:00 ?? 14 ??L ?20 ??H ? STANDARD BLOOD CHEMISTRY ?Test: BUN ? Creatinine ?? Total Bilirubin ? Reference: [8-25] ??[0.70-1.30] ??[0.3-1.1] ? Units: mg/dL ?? mg/dL ?mg/dL 02/18/2013 ?? 11:00:00 ?? 11 ?1.33 ??H ?0.3 02/17/2013 ?? 11:15:00 ?? 9 ? 1.29 02/16/2013 ?? 10:30:00 ?? 10 ?0.98 02/15/2013 ?? 11:00:00 ?? 11 ?1.07 ? 0.3 02/14/2013 ?? 11:00:00 ?? 12 ?1.19 02/13/2013 ?? 10:30:00 ?? 13 ?1.16 02/12/2013 ?? 10:45:00 ?? 12 ?0.84 02/11/2013 ?? 11:00:00 ?? 14 ?0.98 ? 0.2 ??L 02/10/2013 ?? 11:00:00 ?? 14 ?0.97 02/09/2013 ?? 10:00:00 ?? 14 ?0.76 02/08/2013 ?? 11:00:00 ?? 15 ?0.88 ? 0.3 02/07/2013 ?? 17:00:00 ?? 17 ?0.98 02/06/2013 ?? 09:00:00 ?? 12 ?0.88 02/05/2013 ?? 11:00:00 ?? 10 ?0.86 02/04/2013 ?? 12:00:00 ?? 12 ?0.88 ? 0.6 02/03/2013 ?? 12:15:00 ?? 12 ?0.93 02/03/2013 ?? 11:00:00 ?? 11 ?0.77 02/02/2013 ?? 10:40:00 ?? 14 ?0.73 02/01/2013 ?? 10:38:00 ?? 17 ?0.72 ? 0.9 01/31/2013 ?? 11:00:00 ?? 21 ?0.74 01/30/2013 ?? 07:50:00 ?? 22 ?0.83 01/29/2013 ?? 11:08:00 ?? 22 ?0.86 01/28/2013 ?? 05:30:00 ?? 22 ?0.90 ? 1.2 ??H 01/27/2013 ?? 13:22:00 ?? 22 ?0.97 01/25/2013 ?? 23:15:00 ?? 27 ??H ?? 1.18 ? 0.8 01/24/2013 ?? 23:10:00 ?? 37 ??H ?? 1.33 ??H ?0.6 01/24/2013 ?? 21:50:00 ?? 39 ??H ?? 1.45 ??H 01/24/2013 ?? 12:30:00 ?? 39 ??H ?? 1.50 ??H 01/24/2013 ?? 02:00:00 ?? 39 ??H ?? 1.85 ??H ?0.6 01/23/2013 ?? 13:30:00 ?? 36 ??H ?? 2.10 ??H ?0.6 01/22/2013 ?? 21:01:00 ?? 26 ??H ?? 0.63 ??L ?0.5 ?Test: Bilirubin, Direct ??Uric Acid ??Glucose ? Reference: [0.0-0.3] ?[3.0-8.0] ??[65-199] ? Units: mg/dL ?mg/dL ?mg/dL 02/18/2013 ?? 11:00:00 ?7.9 ?94 02/17/2013 ?? 11:15:00 ? 103 02/16/2013 ?? 10:30:00 ? 114 02/15/2013 ?? 11:00:00 ?7.2 ?128 02/14/2013 ?? 11:00:00 ? 171 02/13/2013 ?? 10:30:00 ? 129 ??f 02/12/2013 ?? 10:45:00 ? 64 ??L 02/11/2013 ?? 11:00:00 ?3.8 ?217 ??H 02/10/2013 ?? 11:00:00 ? 166 02/09/2013 ?? 10:00:00 ? 280 ??H 02/08/2013 ?? 11:00:00 ?3.5 ?315 ??H 02/07/2013 ?? 17:00:00 ? 272 ??H 02/06/2013 ?? 09:00:00 ? 171 02/05/2013 ?? 11:00:00 ? 318 ??H 02/04/2013 ?? 12:00:00 ?5.3 ?177 02/03/2013 ?? 12:15:00 ? 173 02/03/2013 ?? 11:00:00 ? 524 ??Cf 02/02/2013 ?? 10:40:00 ? 192 02/01/2013 ?? 10:38:00 ?3.9 ?298 ??H 01/31/2013 ?? 11:00:00 ? 256 ??H ? STANDARD BLOOD CHEMISTRY ?Test: Bilirubin, Direct ??Uric Acid ??Glucose ? Reference: [0.0-0.3] ?[3.0-8.0] ??[65-199] ? Units: mg/dL ?mg/dL ?mg/dL 01/30/2013 ?? 07:50:00 ? 365 ??H 01/29/2013 ?? 11:08:00 ? 169 01/28/2013 ?? 05:30:00 ?6.0 ?194 01/27/2013 ?? 13:22:00 ? 184 01/25/2013 ?? 23:15:00 ?? 0.4 ??H ?231 ??H 01/24/2013 ?? 23:10:00 ? 303 ??H 01/24/2013 ?? 21:50:00 ? 300 ??H 01/24/2013 ?? 12:30:00 ? 322 ??H 01/24/2013 ?? 02:00:00 ? 239 ??H 01/23/2013 ?? 13:30:00 ? 314 ??H 01/22/2013 ?? 21:01:00 ?? 0.1 ? 333 ??H 02/13/2013 10:30:00 ??Glucose: Repeated and verified. 02/03/2013 11:00:00 ??Glucose: Repeated and verified. ?Test: Magnesium ??Total Calcium ??Plasma Phosphorus ? Reference: [1.4-2.5] ??[8.6-10.3] ? [2.3-4.3] ? Units: mg/dL ?mg/dL ?mg/dL 02/18/2013 ?? 11:00:00 ?? 1.4 ?10.1 ? 3.1 02/17/2013 ?? 11:15:00 ?? 1.4 ?10.1 ? 3.8 02/16/2013 ?? 10:30:00 ?? 1.9 ?9.8 ?4.3 02/15/2013 ?? 11:00:00 ?? 1.5 ?9.6 ?3.8 02/14/2013 ?? 11:00:00 ?? 1.6 ?9.7 ?3.0 02/13/2013 ?? 10:30:00 ?? 1.4 ?9.7 ?3.5 02/12/2013 ?? 10:45:00 ?? 1.7 ?9.8 ?4.8 ??H 02/11/2013 ?? 11:00:00 ?? 1.8 ?9.1 ?3.3 02/10/2013 ?? 11:00:00 ?? 1.5 ?9.6 ?2.9 02/09/2013 ?? 10:00:00 ?? 1.6 ?8.9 ?1.9 ??L 02/08/2013 ?? 11:00:00 ?? 2.2 ?9.2 ?1.5 ??L 02/07/2013 ?? 17:00:00 ?? 1.5 ?8.9 ?2.2 ??L 02/06/2013 ?? 09:00:00 ?? 1.6 ?8.4 ??L ? 1.8 ??L 02/05/2013 ?? 11:00:00 ?? 1.6 ?8.4 ??L ? 1.7 ??L 02/04/2013 ?? 12:00:00 ?? 2.0 ?8.9 ?1.9 ??L 02/03/2013 ?? 12:15:00 ?9.0 ??f 02/03/2013 ?? 11:00:00 ?? 1.3 ??L ? 7.9 ??L ? 2.3 02/02/2013 ?? 10:40:00 ?? 1.9 ?8.3 ??L ? 1.9 ??L 02/01/2013 ?? 10:38:00 ?? 1.2 ??L ? 8.2 ??L ? 1.6 ??L 01/31/2013 ?? 11:00:00 ?? 1.9 ?8.0 ??L ? 1.1 ??L 01/30/2013 ?? 07:50:00 ?? 1.5 ?8.2 ??L ? 1.9 ??L 01/29/2013 ?? 11:08:00 ?? 1.6 ?7.9 ??L ? 1.5 ??L 01/28/2013 ?? 05:30:00 ?? 1.5 ?8.2 ??L ? 1.3 ??L 01/27/2013 ?? 13:22:00 ?? 1.7 ?7.8 ??L ? 2.2 ??L 01/25/2013 ?? 23:15:00 ?? 2.2 ?7.9 ??L ? 1.4 ??L 01/24/2013 ?? 23:10:00 ?? 1.4 ?7.2 ??L ? 2.2 ??L 01/24/2013 ?? 21:50:00 ?7.4 ??L 01/24/2013 ?? 12:30:00 ?7.2 ??L 01/24/2013 ?? 02:00:00 ?7.3 ??L 01/23/2013 ?? 13:30:00 ?7.7 ??L 01/22/2013 ?? 21:01:00 ?9.2 02/03/2013 12:15:00 ??Total Calcium: Repeated and verified. STANDARD BLOOD CHEMISTRY ?Test: Plasma Total Protein ??Albumin ? Reference: [6.5-8.5] ? [3.6-5.0] ? Units: g/dL ?g/dL 02/18/2013 ?? 11:00:00 ?? 6.8 ? 3.9 02/15/2013 ?? 11:00:00 ?? 6.5 ? 3.6 02/11/2013 ?? 11:00:00 ?? 5.8 ??L ?3.2 ??L 02/08/2013 ?? 11:00:00 ?? 5.9 ??L ?3.0 ??L 02/04/2013 ?? 12:00:00 ?? 6.2 ??L ?3.0 ??L 02/01/2013 ?? 10:38:00 ?? 5.1 ??L ?2.3 ??L 01/28/2013 ?? 05:30:00 ?? 5.1 ??L ?2.4 ??L 01/25/2013 ?? 23:15:00 ?? 5.2 ??L ?2.4 ??L 01/24/2013 ?? 23:10:00 ?? 5.1 ??L ?2.5 ??L 01/24/2013 ?? 02:00:00 ?? 5.2 ??L ?2.7 ??L 01/23/2013 ?? 13:30:00 ?? 5.4 ??L ?3.0 ??L 01/22/2013 ?? 21:01:00 ?? 6.6 ? 3.8 ?GLYCATED HEMOGLOBIN TESTING ?Test: Hemoglobin A1C ??Est Average Glucose ? Reference: [4.0-6.0] ? Units: % ? mg/dL 01/22/2013 ?? 21:01:00 ?? 8.7 ??H ?203 ??f 01/22/2013 21:01:00 ??Est Average Glucose: The ADA recommends reporting an estimated Average Glucose (eAG) with all Hemoglobin A1c results using the equation derived from a study of 507 normal and diabetic adults. ??Minority populations were underrepresented and children were not included. ??(Diabetes Care 31:8072-9540, 2008). ??The eAG is not equivalent to a fasting glucose. ?LIPIDS ?Test: Total Cholesterol i ??HDL Cholesterol i ? Reference: [0-200] ?[40-199] ? Units: mg/dL ?mg/dL 01/22/2013 ?? 21:01:00 ?? 244 ??H ? 63 01/22/2013 21:01:00 Total Cholesterol: Interpretive Data Desirable: ?<200 mg/dL Borderline high: ??200-239 mg/dL High: ? >240 mg/dL Literature Reference: National Cholesterol Education Program (NCEP) Expert Panel on Detection, Evaluation, and Treatment of High Blood Cholesterol in Adults (Adult Treatment Panel III). ??Circulation 2004; 110:227. Current interpretive data was last revised on 2005. ?LIPIDS 01/22/2013 21:01:00 HDL Cholesterol: Interpretive Data Less than 40 mg/dL - low; A major risk factor for heart disease. Greater than or equal to 60 mg/dL - High; ??considered protective of heart disease. Literature Reference: See Cholesterol Current interpretive data was last revised on 2008. ?Test: Triglycerides i ??LDL Chol (Calc) i ? Reference: [0-150] ?[0-129] ? Units: mg/dL ?mg/dL 01/22/2013 ?? 21:01:00 ?? 425 ??H ? N/A ??f 01/22/2013 21:01:00 Triglycerides: Interpretive Data Desirable: ? < 150 mg/dL Borderline High: ? 150 - 199 mg/dL High: ?> 200 mg/dL Literature Reference: See Cholesterol Current interpretive data was last revised on 07. 01/22/2013 21:01:00 LDL Chol (Calc): Interpretive Data Optimal: ? < 100 mg/dL Near Optimal: ?100 - 129 mg/dL Borderline High: ?? 130 - 159 mg/dL High: ?> 160 mg/dL Literature Reference: See Cholesterol Current interpretive data was last revised on 07. 01/22/2013 21:01:00 ??LDL Chol (Calc): Cannot be calculated; triglycerides above 400 mg/dL. ?Test: non-HDL Cholesterol i ??LDL Chol (Direct) i ? Reference: ?[0-129] ? Units: mg/dL ?mg/dL 01/22/2013 ?? 21:01:00 ?? 181 ?120 ??f 01/22/2013 21:01:00 non-HDL Cholesterol: Interpretive Data When triglycerides are >200 mg/dL, non-HDL C is a secondary target of therapy, with a goal 30 mg/dL higher than the identified LDL-C goal. Reference: ??See Cholesterol Reference. Current interpretive data was last revised 2012. 01/22/2013 21:01:00 LDL Chol (Direct): Interpretive Data Optimal: ? < 100 mg/dL Near Optimal: ?100 - 129 mg/dL Borderline High: ?? 130 - 159 mg/dL High: ?> 160 mg/dL Literature Reference: National Cholesterol Education Program (NCEP) Expert Panel on Detection, Evaluation, and Treatment of High Blood Cholesterol in Adults (Adult Treatment Panel III). ??Circulation 2004; 110:227. Current interpretive data was last revised on 05. ?LIPIDS 01/22/2013 21:01:00 ??LDL Chol (Direct): Hemolyzed; result may be falsely decreased ?ENZYMES ?Test: Alkaline Phosphatase ??ALT ?AST ? Reference: [38-126] ?[7-53] ?? [11-47] ? Units: Units/L ? Units/L ??Units/L 02/18/2013 ?? 11:00:00 ?? 159 ??H ?58 ??H ?38 02/15/2013 ?? 11:00:00 ?? 167 ??H ?54 ??H ?47 02/11/2013 ?? 11:00:00 ?? 147 ??H ?32 ? 33 02/08/2013 ?? 11:00:00 ?? 155 ??H ?26 ? 29 02/04/2013 ?? 12:00:00 ?? 116 ? 20 ? 24 02/01/2013 ?? 10:38:00 ?? 130 ??H ?23 ? 23 01/28/2013 ?? 05:30:00 ?? 113 ? 30 ? 30 01/25/2013 ?? 23:15:00 ?? 78 ?36 ? 44 01/24/2013 ?? 23:10:00 ?? 68 ?39 ? 41 01/24/2013 ?? 02:00:00 ?? 79 ?43 ? 38 01/23/2013 ?? 13:30:00 ?? 89 ?50 ? 22 01/22/2013 ?? 21:01:00 ?? 117 ? 82 ??H ?24 ?Test: Total LD ?? Amylase ?? Lipase ? Reference: [100-250] ??[28-100] ??[0-99] ? Units: Units/L ?Units/L ?? Units/L 02/18/2013 ?? 11:00:00 ?? 279 ??H 02/15/2013 ?? 11:00:00 ?? 298 ??H 02/11/2013 ?? 11:00:00 ?? 353 ??H 02/08/2013 ?? 11:00:00 ?? 371 ??H 02/04/2013 ?? 12:00:00 ?? 452 ??H 02/01/2013 ?? 12:26:00 ?18 02/01/2013 ?? 10:38:00 ?? 430 ??H 01/28/2013 ?? 05:30:00 ?? 676 ??H 01/25/2013 ?? 23:15:00 ?116 ??H 01/24/2013 ?? 12:30:00 ?718 ??C 01/23/2013 ?? 13:30:00 ?See Comment ??^f 01/23/2013 ?? 13:30:00 ?2117 ??C 01/22/2013 ?? 21:01:00 ?1045 ??H ?? 1770 ??C 01/23/2013 13:30:00 ??Lipase: Corrected from 2104 on 01/23/2013 15:55:20 by [employer] 01/23/2013 13:30:00 ??Lipase: Credited, duplicate test. ? CARDIAC PROTEINS ?Test: Troponin I ?? BNP ? Reference: [0.00-0.24] ??[0-100] ? Units: ng/mL ?pg/mL 01/23/2013 ?? 18:45:00 ?? <0.07 ? CARDIAC PROTEINS ?Test: Troponin I ?? BNP ? Reference: [0.00-0.24] ??[0-100] ? Units: ng/mL ?pg/mL 01/23/2013 ?? 18:45:00 ?45 01/22/2013 ?? 21:01:00 ?? <0.07 01/22/2013 21:01:00 Troponin I: Interpretive Data Normal Range: <0.07 ng/mL: Negative 0.07 - 0.24 ng/mL: Elevated, may be consistent with Myocardial Injury/Ischemia but is nondiagnostic and of equivocal significance. Consider obtaining additional Troponin values. (JAM Kizzy Cardiol 2000; 36:959. Circulation 2000; 102: 1193., 2002; 106: 1893., 2003: 108: 2543) Greater than or equal to 0.25 ng/mL: Positive Troponin, suggest establishing rising or falling pattern and evidence of Cardiac Ischemia for consideration of Myocardial Infarction. Current interpretive data was last revised on 2008. ?BLOOD HORMONES ?Test: Cortisol i ??Ionized Calcium ? Reference: [4.3-22.4] ??[4.50-5.10] ? Units: mcg/dL ?mg/dL 01/25/2013 ?? 01:40:00 ? 3.80 ??L 01/23/2013 ?? 15:10:00 ?? 22.6 ??H 01/23/2013 ?? 13:30:00 ? 4.23 ??L 01/23/2013 15:10:00 Cortisol: Interpretive Data Normal Range: ??4.3-22.4 mcg/dL; ??Evening: ??Half of morning value. ??This analyte undergoes marked diurnal variation. ??Ranges indicated apply to morning specimens. Current interpretive data was last revised 2011. ?METABOLITES ?Test: Plasma Lactate ??Lactate Whole Blood ? Reference: [0.7-2.1] ? [0.7-2.1] ? Units: mmol/L ?mmol/L 01/24/2013 ?? 04:48:00 ?? 1.5 01/23/2013 ?? 18:45:00 ?? 1.7 01/23/2013 ?? 15:10:00 ? 4.3 ??C ? QUANTITATIVE URINE CHEMISTRY ?Test: Random Urine Sodium ??Random Urine Potassium ? Reference: ? Units: mmol/L ? mmol/L 01/24/2013 ?? 15:15:00 ?? 46 01/24/2013 ?? 15:15:00 ?40.1 ?Test: Random Urine Chloride ??Random Urine Creatinine ? Reference: ? Units: mmol/L ? mg/dL 01/24/2013 ?? 15:15:00 ?? 63 ? 55.68 ?Test: Random Urine Urea Nitrogen ? Reference: ? Units: mg/dL 01/24/2013 ?? 15:15:00 ?? 505 ? ANTIMICROBIAL DRUG ASSAYS ?Test: Vancomycin, Tr ??Vancomycin, Rnd ? Reference: [10.0-20.9] ? Units: mcg/mL ?mcg/mL 01/31/2013 ?? 10:00:00 ? 14.6 01/30/2013 ?? 07:50:00 ?? 26.5 ??C 01/28/2013 ?? 05:30:00 ?? 17.6 01/27/2013 ?? 08:44:00 ?? 21.0 ??C 01/24/2013 ?? 23:10:00 ? 5.0 01/27/2013 08:44:00 Vancomycin, Tr: Interpretive Data Therapeutic Range: ?? Uncomplicated skin and soft tissue infections: 10-20 mcg/mL ?? All other infections: ??15-20 mcg/mL Current interpretive data was last revised on 12. ?DRUG LEVELS ?Test: Tacrolimus, Tr ??Tacrolimus, Rnd ? Reference: ? Units: ng/mL ? ng/mL 02/18/2013 ?? 09:59:00 ? 7.5 02/15/2013 ?? 21:30:00 ?? 2.6 02/09/2013 ?? 10:00:00 ? 2.5 02/06/2013 ?? 09:00:00 ?? 2.2 02/02/2013 ?? 06:00:00 ? 3.8 01/31/2013 ?? 10:00:00 ? 8.5 01/30/2013 ?? 06:00:00 ? 13.7 01/29/2013 ?? 06:05:00 ? 19.1 01/28/2013 ?? 05:30:00 ?? 23.5 01/24/2013 ?? 20:55:00 ? 8.9 ?DRUG LEVELS ?Test: Tacrolimus, Tr ??Tacrolimus, Rnd ? Reference: ? Units: ng/mL ? ng/mL 01/23/2013 ?? 06:00:00 ? 5.2 01/28/2013 05:30:00 Tacrolimus, Tr: Interpretive Data This test was developed using an analyte specific reagent. ??Its performance characteristics were determined by the [facility] in a manner consistent with CLIA requirements. ??This test has not been cleared or approved by the [place]. Food and Drug Administration. Current interpretive data was last revised on 2012. 01/23/2013 06:00:00 Tacrolimus, Rnd: Interpretive Data This test was developed using an analyte specific reagent. ??Its performance characteristics were determined by the [facility] in a manner consistent with CLIA requirements. ??This test has not been cleared or approved by the [place] Food and Drug Administration. Current interpretive data was last revised on 2012. ?URINALYSIS ?Macroscopic ?Test: Color ? Clarity ??Specific Taylor ??pH ? Reference: [Yellow] ??[Clear] ??[1.003-1.030] ? [5.0-8.0] ? Units: 01/23/2013 ?? 16:20:00 ?? Yellow ?Clear ?1.028 ? 5.5 ?Test: Albumin ??Glucose ? Ketones ? Bilirubin ? Reference: [Trace] ??[Negative] ??[Negative] ??[Negative] ? Units: 01/23/2013 ?? 16:20:00 ?? Trace ?4+ ??* ? Trace ??* ?Negative ?Test: Blood ? Urobilinogen ??Nitrite ? Reference: [Negative] ??[0.0-2.0] ? [Negative] ? Units: ? mg/dL 01/23/2013 ?? 16:20:00 ?? Trace ??* ?<2.0 ?Negative ?Test: Leuk Esterase ? Reference: [Negative] ? Units: 01/23/2013 ?? 16:20:00 ?? Negative ?Microscopic ?Test: Epithl Squam ??Mucus Thrds ??RBC Ur ??WBC Ur ? Reference: ?[0-3] ?? [0-5] ? Units: /LPF ?/HPF ? /HPF ?/HPF 01/23/2013 ?? 16:20:00 ?? 3 ? Small ?1 ? 0 ?URINALYSIS ?Microscopic ?Test: Bacteria Ur ??Epithl Renl Ur ??Hyaline Cast ? Reference: [Trace] ?[0-0] ? [0-0] ? Units: ?/HPF ?/LPF 01/23/2013 ?? 16:20:00 ?? Trace ?0 ? >2 ??H ? COMPLETE BLOOD COUNT ?Test: WBC ?RBC ?Hgb ? Reference: [3.8-9.8] ??[4.50-5.70] ??[13.8-17.2] ? Units: K/cumm ? M/cumm ? g/dL 02/18/2013 ?? 11:00:00 ?? 12.6 ??H ?2.95 ??L ?10.6 ??L 02/17/2013 ?? 11:15:00 ?? 13.2 ??H ?2.86 ??L ?10.5 ??L 02/16/2013 ?? 10:30:00 ?? 10.7 ??H ?2.89 ??L ?10.5 ??L 02/15/2013 ?? 11:00:00 ?? 10.5 ??H ?2.72 ??L ?9.8 ??L 02/14/2013 ?? 11:00:00 ?? 17.8 ??H ?2.85 ??L ?10.1 ??L 02/13/2013 ?? 10:30:00 ?? 11.8 ??H ?2.52 ??L ?9.2 ??L 02/12/2013 ?? 10:45:00 ?? 12.6 ??H ?2.64 ??L ?9.6 ??L 02/11/2013 ?? 11:00:00 ?? 10.6 ??H ?2.32 ??L ?8.3 ??L 02/10/2013 ?? 11:00:00 ?? 17.2 ??H ?2.51 ??L ?9.2 ??L 02/09/2013 ?? 10:00:00 ?? 10.8 ??H ?2.28 ??L ?8.3 ??L 02/08/2013 ?? 11:00:00 ?? 12.2 ??H ?2.68 ??L ?9.5 ??L 02/07/2013 ?? 17:00:00 ?? 11.6 ??H ?2.52 ??L ?9.2 ??L 02/06/2013 ?? 09:00:00 ?? 8.2 ?2.57 ??L ?9.4 ??L 02/05/2013 ?? 11:00:00 ?? 9.1 ?2.60 ??L ?9.5 ??L 02/04/2013 ?? 12:00:00 ?? 14.3 ??H ?2.91 ??L ?10.7 ??L 02/03/2013 ?? 11:00:00 ?? 13.1 ??H ?2.47 ??L ?9.1 ??L 02/02/2013 ?? 10:40:00 ?? 13.4 ??H ?2.71 ??L ?10.1 ??L 02/01/2013 ?? 10:38:00 ?? 17.8 ??H ?2.79 ??L ?9.9 ??L 01/31/2013 ?? 11:00:00 ?? 14.5 ??H ?2.72 ??L ?9.9 ??L 01/30/2013 ?? 07:50:00 ?? 13.0 ??H ?2.74 ??L ?10.2 ??L 01/29/2013 ?? 11:08:00 ?? 14.5 ??H ?2.91 ??L ?10.8 ??L 01/28/2013 ?? 05:30:00 ?? 17.9 ??H ?3.08 ??L ?11.1 ??L 01/27/2013 ?? 13:22:00 ?? 18.3 ??H ?2.94 ??L ?11.0 ??L 01/25/2013 ?? 23:15:00 ?? 18.7 ??H ?3.29 ??L ?12.0 ??L 01/24/2013 ?? 22:30:00 ?? 20.3 ??H ?3.58 ??L ?13.4 ??L 01/24/2013 ?? 02:00:00 ?? 23.9 ??H ?4.10 ??L ?14.7 01/23/2013 ?? 13:30:00 ?? 20.0 ??H ?4.77 ? 17.2 01/23/2013 ?? 07:00:00 ?? 21.3 ??H ?5.03 ? 18.4 ??H 01/22/2013 ?? 21:01:00 ?? 23.1 ??H ?4.60 ? 16.6 ?Test: Hct ?Platelet Ct ??MCV ? Reference: [40.7-50.3] ??[140-440] ?[80.0-97.6] ? Units: % ?K/cumm ? fL 02/18/2013 ?? 11:00:00 ?? 31.8 ??L ?288 ?107.7 ??H 02/17/2013 ?? 11:15:00 ?? 31.0 ??L ?271 ?108.3 ??H 02/16/2013 ?? 10:30:00 ?? 31.1 ??L ?252 ?107.9 ??H 02/15/2013 ?? 11:00:00 ?? 29.5 ??L ?224 ?108.6 ??H 02/14/2013 ?? 11:00:00 ?? 30.6 ??L ?217 ?107.2 ??H 02/13/2013 ?? 10:30:00 ?? 27.3 ??L ?184 ?108.2 ??H 02/12/2013 ?? 10:45:00 ?? 28.4 ??L ?170 ?107.5 ??H 02/11/2013 ?? 11:00:00 ?? 25.0 ??L ?145 ?107.9 ??H 02/10/2013 ?? 11:00:00 ?? 27.1 ??L ?152 ?108.0 ??H 02/09/2013 ?? 10:00:00 ?? 24.6 ??L ?133 ??L ? 108.2 ??H 02/08/2013 ?? 11:00:00 ?? 28.7 ??L ?139 ??L ? 107.1 ??H ? COMPLETE BLOOD COUNT ?Test: Hct ?Platelet Ct ??MCV ? Reference: [40.7-50.3] ??[140-440] ?[80.0-97.6] ? Units: % ?K/cumm ? fL 02/07/2013 ?? 17:00:00 ?? 27.3 ??L ?137 ??L ? 108.2 ??H 02/06/2013 ?? 09:00:00 ?? 27.6 ??L ?106 ??L ? 107.5 ??H 02/05/2013 ?? 11:00:00 ?? 27.8 ??L ?112 ??L ? 106.8 ??H 02/04/2013 ?? 12:00:00 ?? 31.4 ??L ?117 ??Lf ?108.0 ??H 02/03/2013 ?? 11:00:00 ?? 26.6 ??L ?84 ??L ?107.7 ??H 02/02/2013 ?? 10:40:00 ?? 29.1 ??L ?79 ??L ?107.4 ??H 02/01/2013 ?? 10:38:00 ?? 29.7 ??L ?64 ??L ?106.4 ??H 01/31/2013 ?? 11:00:00 ?? 29.3 ??L ?59 ??L ?107.9 ??H 01/30/2013 ?? 07:50:00 ?? 29.5 ??L ?50 ??L ?107.9 ??H 01/29/2013 ?? 11:08:00 ?? 31.1 ??L ?45 ??Cf ? 106.8 ??H 01/28/2013 ?? 05:30:00 ?? 32.6 ??L ?42 ??Cf ? 105.8 ??H 01/27/2013 ?? 13:22:00 ?? 31.5 ??L ?43 ??Cf ? 106.9 ??H 01/25/2013 ?? 23:15:00 ?? 35.5 ??L ?50 ??Lf ? 108.0 ??H 01/24/2013 ?? 22:30:00 ?? 39.2 ??L ?73 ??L ?109.5 ??H 01/24/2013 ?? 02:00:00 ?? 44.4 ? 98 ??L ?108.1 ??H 01/23/2013 ?? 13:30:00 ?? 52.1 ??H ?103 ??L ? 109.2 ??H 01/23/2013 ?? 07:00:00 ?? 54.3 ??H ?105 ??L ? 108.0 ??H 01/22/2013 ?? 21:01:00 ?? 49.7 ? 120 ??L ? 108.1 ??H 02/04/2013 12:00:00 ??Platelet Ct: Verified 01/29/2013 11:08:00 ??Platelet Ct: BMT patient result; not critical. 01/28/2013 05:30:00 ??Platelet Ct: BMT patient result; not critical. 01/27/2013 13:22:00 ??Platelet Ct: BMT patient result; not critical. 01/25/2013 23:15:00 ??Platelet Ct: No clot detected in sample. ?Test: MCH ?MCHC ? RDW ? Reference: [26.7-33.7] ??[32.7-35.5] ??[11.8-14.6] ? Units: pg ? g/dL ? % 02/18/2013 ?? 11:00:00 ?? 36.1 ??H ?33.5 ? 16.6 ??H 02/17/2013 ?? 11:15:00 ?? 36.6 ??H ?33.8 ? 15.9 ??H 02/16/2013 ?? 10:30:00 ?? 36.4 ??H ?33.7 ? 15.0 ??H 02/15/2013 ?? 11:00:00 ?? 36.0 ??H ?33.1 ? 14.7 ??H 02/14/2013 ?? 11:00:00 ?? 35.3 ??H ?32.9 ? 14.7 ??H 02/13/2013 ?? 10:30:00 ?? 36.3 ??H ?33.6 ? 14.1 02/12/2013 ?? 10:45:00 ?? 36.4 ??H ?33.9 ? 14.4 02/11/2013 ?? 11:00:00 ?? 36.0 ??H ?33.3 ? 14.3 02/10/2013 ?? 11:00:00 ?? 36.8 ??H ?34.1 ? 13.9 02/09/2013 ?? 10:00:00 ?? 36.4 ??H ?33.6 ? 13.7 02/08/2013 ?? 11:00:00 ?? 35.6 ??H ?33.2 ? 13.7 02/07/2013 ?? 17:00:00 ?? 36.4 ??H ?33.6 ? 13.7 02/06/2013 ?? 09:00:00 ?? 36.4 ??H ?33.9 ? 13.8 02/05/2013 ?? 11:00:00 ?? 36.6 ??H ?34.2 ? 13.5 02/04/2013 ?? 12:00:00 ?? 36.9 ??H ?34.2 ? 13.2 02/03/2013 ?? 11:00:00 ?? 36.9 ??H ?34.3 ? 13.5 02/02/2013 ?? 10:40:00 ?? 37.3 ??H ?34.7 ? 13.4 02/01/2013 ?? 10:38:00 ?? 35.5 ??H ?33.4 ? 12.6 01/31/2013 ?? 11:00:00 ?? 36.5 ??H ?33.8 ? 13.5 01/30/2013 ?? 07:50:00 ?? 37.3 ??H ?34.6 ? 13.7 01/29/2013 ?? 11:08:00 ?? 37.1 ??H ?34.7 ? 12.9 ? COMPLETE BLOOD COUNT ?Test: MCH ?MCHC ? RDW ? Reference: [26.7-33.7] ??[32.7-35.5] ??[11.8-14.6] ? Units: pg ? g/dL ? % 01/28/2013 ?? 05:30:00 ?? 35.9 ??H ?34.0 ? 13.5 01/27/2013 ?? 13:22:00 ?? 37.5 ??H ?35.0 ? 13.3 01/25/2013 ?? 23:15:00 ?? 36.4 ??H ?33.7 ? 13.4 01/24/2013 ?? 22:30:00 ?? 37.6 ??H ?34.3 ? 13.3 01/24/2013 ?? 02:00:00 ?? 35.8 ??H ?33.1 ? 13.2 01/23/2013 ?? 13:30:00 ?? 36.1 ??H ?33.1 ? 13.1 01/23/2013 ?? 07:00:00 ?? 36.5 ??H ?33.8 ? 13.0 01/22/2013 ?? 21:01:00 ?? 36.2 ??H ?33.5 ? 12.9 ?Test: MPV ? Reference: [6.8-10.4] ? Units: fL 02/18/2013 ?? 11:00:00 ?? 8.6 02/17/2013 ?? 11:15:00 ?? 8.6 02/16/2013 ?? 10:30:00 ?? 8.8 02/15/2013 ?? 11:00:00 ?? 9.5 02/14/2013 ?? 11:00:00 ?? 9.7 02/13/2013 ?? 10:30:00 ?? 9.2 02/12/2013 ?? 10:45:00 ?? 9.2 02/11/2013 ?? 11:00:00 ?? 9.6 02/10/2013 ?? 11:00:00 ?? 9.4 02/09/2013 ?? 10:00:00 ?? 9.5 02/08/2013 ?? 11:00:00 ?? 10.1 02/07/2013 ?? 17:00:00 ?? 9.4 02/06/2013 ?? 09:00:00 ?? 10.3 02/05/2013 ?? 11:00:00 ?? 10.4 02/04/2013 ?? 12:00:00 ?? 10.9 ??H 02/03/2013 ?? 11:00:00 ?? 11.0 ??H 02/02/2013 ?? 10:40:00 ?? 11.1 ??H 02/01/2013 ?? 10:38:00 ?? 11.0 ??H 01/31/2013 ?? 11:00:00 ?? 10.7 ??H 01/30/2013 ?? 07:50:00 ?? 10.6 ??H 01/29/2013 ?? 11:08:00 ?? 10.3 01/28/2013 ?? 05:30:00 ?? 9.6 01/27/2013 ?? 13:22:00 ?? 9.4 01/25/2013 ?? 23:15:00 ?? 9.5 01/24/2013 ?? 22:30:00 ?? 9.4 01/24/2013 ?? 02:00:00 ?? 9.0 01/23/2013 ?? 13:30:00 ?? 8.6 01/23/2013 ?? 07:00:00 ?? 8.9 01/22/2013 ?? 21:01:00 ?? 8.9 ? AUTOMATED WHITE CELL DIFFERENTIAL ?Test: Neut Pct Auto ??Lymph Pct Auto ??Comal Pct Auto ? Reference: [38.7-74.5] ?[20.0-54.3] ? [4.3-13.5] ? Units: % ?% ? % 01/25/2013 ?? 23:15:00 ?? 92.2 ??H ?4.4 ??L ?3.3 ??L 01/24/2013 ?? 22:30:00 ?? 88.8 ??H ?9.6 ??L ?1.6 ??L 01/24/2013 ?? 02:00:00 ?? 93.8 ??H ?2.1 ??L ?4.1 ??L 01/23/2013 ?? 13:30:00 ?? 87.9 ??H ?10.0 ??L ? 2.0 ??L ? AUTOMATED WHITE CELL DIFFERENTIAL ?Test: Neut Pct Auto ??Lymph Pct Auto ??Comal Pct Auto ? Reference: [38.7-74.5] ?[20.0-54.3] ? [4.3-13.5] ? Units: % ?% ? % 01/22/2013 ?? 21:01:00 ?? 85.6 ??H ?12.5 ??L ? 1.6 ??L ?Test: Eos Pct Auto ??Baso Pct Auto ??Neut Abs Auto ? Reference: [0.0-6.0] ? [0.0-3.0] ?[1.8-6.6] ? Units: % ? % ?K/cumm 01/25/2013 ?? 23:15:00 ?? 0.1 ? 0.0 ?17.2 ??H 01/24/2013 ?? 22:30:00 ?? 0.0 ? 0.0 ?18.1 ??H 01/24/2013 ?? 02:00:00 ?? 0.0 ? 0.0 ?22.8 ??H 01/23/2013 ?? 13:30:00 ?? 0.1 ? 0.0 ?17.6 ??H 01/22/2013 ?? 21:01:00 ?? 0.1 ? 0.2 ?19.8 ??H ?Test: Lymph Abs Auto ??Comal Abs Auto ??Eos Abs Auto ? Reference: [1.2-3.3] ? [0.2-1.2] ?[0.0-0.5] ? Units: K/cumm ?K/cumm ? K/cumm 01/25/2013 ?? 23:15:00 ?? 0.8 ??L ?0.6 ?0.0 01/24/2013 ?? 22:30:00 ?? 2.0 ? 0.3 ?0.0 01/24/2013 ?? 02:00:00 ?? 0.5 ??L ?1.0 ?0.0 01/23/2013 ?? 13:30:00 ?? 2.0 ? 0.4 ?0.0 01/22/2013 ?? 21:01:00 ?? 2.9 ? 0.4 ?0.0 ?Test: Baso Abs Auto ??Consistent Result ??Morph Screen ? Reference: [0.0-0.2] ? Units: K/cumm 01/31/2013 ?? 11:00:00 ?See Below 01/29/2013 ?? 11:08:00 ?See Below 01/27/2013 ?? 13:22:00 ?See Below 01/25/2013 ?? 23:15:00 ?? 0.0 01/24/2013 ?? 22:30:00 ?? 0.0 ? See Below 01/24/2013 ?? 02:00:00 ?? 0.0 ? See Below 01/23/2013 ?? 13:30:00 ?? 0.0 01/22/2013 ?? 21:01:00 ?? 0.1 ? See Below 01/31/2013 ??11:00:00 ??Consistent Result ? Consistent with previous results. 01/29/2013 ??11:08:00 ??Consistent Result ? Consistent with previous results. 01/27/2013 ??13:22:00 ??Consistent Result ? Consistent with previous results. 01/24/2013 ??22:30:00 ??Morph Screen ? Original results obtained required verification by alternate ? method(s). ??Refer to CBC and/or observation sections for detailed ? results. 01/24/2013 ??02:00:00 ??Morph Screen ? Original results obtained required verification by alternate ? method(s). ??Refer to CBC and/or observation sections for detailed ? results. ? AUTOMATED WHITE CELL DIFFERENTIAL 01/22/2013 ??21:01:00 ??Morph Screen ? Original results obtained required verification by alternate ? method(s). ??Refer to CBC and/or observation sections for detailed ? results. ?Test: Observation ? Reference: ? Units: 01/22/2013 ?? 21:01:00 ?? See Below 01/22/2013 ??21:01:00 ??Observation ? NRBCs present. ? BLOOD MORPHOLOGIC EXAMINATION ?Test: Cells Diffed ??Myelocyte ??Metamyelocyte ? Reference: ? [0-0] ?[0-0] ? Units: Cells ? % ?% 02/18/2013 ?? 11:00:00 ?? 100 02/17/2013 ?? 11:15:00 ?? 100 02/16/2013 ?? 10:15:00 ?? 100 02/15/2013 ?? 11:00:00 ?? 100 02/14/2013 ?? 11:00:00 ?? 100 02/13/2013 ?? 10:30:00 ?? 100 ? 1 ??H 02/12/2013 ?? 10:45:00 ?? 100 ? 1 ??H 02/11/2013 ?? 11:00:00 ?? 100 ? 1 ??H 02/10/2013 ?? 11:00:00 ?? 100 ? 2 ??H ? 0 02/09/2013 ?? 10:00:00 ?? 100 02/08/2013 ?? 11:00:00 ?? 100 02/07/2013 ?? 17:00:00 ?? 100 02/06/2013 ?? 09:00:00 ?? 100 02/05/2013 ?? 11:00:00 ?? 100 02/04/2013 ?? 12:00:00 ?? 100 02/03/2013 ?? 11:00:00 ?? 100 02/02/2013 ?? 10:40:00 ?? 100 02/01/2013 ?? 10:38:00 ?? 100 01/31/2013 ?? 11:00:00 ?? 100 01/30/2013 ?? 07:50:00 ?? 100 01/29/2013 ?? 11:00:00 ?? 100 01/28/2013 ?? 05:30:00 ?? 100 01/27/2013 ?? 13:22:00 ?? 100 ?Test: Band Neutrophil ??Seg Neutrophil ??Lymphocyte ? Reference: [0-6] ?[44-80] ? [13-44] ? Units: % ?% ? % 02/18/2013 ?? 11:00:00 ?84 ??H ? 13 02/17/2013 ?? 11:15:00 ?? 1 ?67 ?23 02/16/2013 ?? 10:15:00 ?76 ?20 02/15/2013 ?? 11:00:00 ?? 1 ?65 ?24 02/14/2013 ?? 11:00:00 ?87 ??H ? 6 ??L 02/13/2013 ?? 10:30:00 ?? 1 ?76 ?12 ??L 02/12/2013 ?? 10:45:00 ?? 1 ?78 ?11 ??L 02/11/2013 ?? 11:00:00 ?73 ?16 02/10/2013 ?? 11:00:00 ?? 4 ?68 ?16 ? BLOOD MORPHOLOGIC EXAMINATION ?Test: Band Neutrophil ??Seg Neutrophil ??Lymphocyte ? Reference: [0-6] ?[44-80] ? [13-44] ? Units: % ?% ? % 02/09/2013 ?? 10:00:00 ?69 ?26 02/08/2013 ?? 11:00:00 ?? 3 ?64 ?20 02/07/2013 ?? 17:00:00 ?79 ?12 ??L 02/06/2013 ?? 09:00:00 ?? 1 ?72 ?17 02/05/2013 ?? 11:00:00 ?? 4 ?78 ?8 ??L 02/04/2013 ?? 12:00:00 ?76 ?15 02/03/2013 ?? 11:00:00 ?93 ??H ? 1 ??L 02/02/2013 ?? 10:40:00 ?? 3 ?83 ??H ? 6 ??L 02/01/2013 ?? 10:38:00 ?? 17 ??H ?76 ?2 ??L 01/31/2013 ?? 11:00:00 ?? 1 ?87 ??H ? 8 ??L 01/30/2013 ?? 07:50:00 ?? 10 ??H ?77 ?7 ??L 01/29/2013 ?? 11:00:00 ?? 4 ?81 ??H ? 6 ??L 01/28/2013 ?? 05:30:00 ?87 ??H ? 6 ??L 01/27/2013 ?? 13:22:00 ?? 1 ?87 ??H ? 6 ??L ?Test: Monocyte ??Eosinophil ??Basophil ??Nucleated RBC ? Reference: [2-8] ? [0-6] ? [0-3] ? [0-0] ? Units: % ? % ? % ? /100WBC 02/18/2013 ?? 11:00:00 ?? 1 ??L ?2 ? 0 ? 1 ??H 02/17/2013 ?? 11:15:00 ?? 8 ? 1 ? 2 ??H 02/16/2013 ?? 10:15:00 ?? 4 02/15/2013 ?? 11:00:00 ?? 8 ? 1 ? 1 02/14/2013 ?? 11:00:00 ?? 7 ? 1 ??H 02/13/2013 ?? 10:30:00 ?? 10 ??H 02/12/2013 ?? 10:45:00 ?? 8 ? 1 ? 2 ??H 02/11/2013 ?? 11:00:00 ?? 9 ??H ?1 ? 3 ??H 02/10/2013 ?? 11:00:00 ?? 10 ??H ? 0 ? 0 ? 3 ??H 02/09/2013 ?? 10:00:00 ?? 3 ? 1 ? 1 ? 11 ??H 02/08/2013 ?? 11:00:00 ?? 11 ??H ? 2 ? 3 ??H 02/07/2013 ?? 17:00:00 ?? 7 ? 1 ? 1 ? 2 ??H 02/06/2013 ?? 09:00:00 ?? 10 ??H ? 2 ??H 02/05/2013 ?? 11:00:00 ?? 10 ??H 02/04/2013 ?? 12:00:00 ?? 8 ? 0 ? 0 02/03/2013 ?? 11:00:00 ?? 5 ? 1 02/02/2013 ?? 10:40:00 ?? 7 ? 1 02/01/2013 ?? 10:38:00 ?? 4 ? 1 01/31/2013 ?? 11:00:00 ?? 4 01/30/2013 ?? 07:50:00 ?? 4 ? 2 01/29/2013 ?? 11:00:00 ?? 8 ? 1 01/28/2013 ?? 05:30:00 ?? 7 01/27/2013 ?? 13:22:00 ?? 6 ?Test: Platelet Estimate ??RBC Morph 1 ??Polychromasia ? Reference: [Adequate] ? [Normal] ? [None Seen] ? Units: 02/18/2013 ?? 11:00:00 ?? Adequate ?3-7/HPF ??* 02/17/2013 ?? 11:15:00 ?? Adequate ?3-7/HPF ??* 02/16/2013 ?? 10:15:00 ?? Adequate 02/15/2013 ?? 11:00:00 ?? Adequate ?8-15/HPF ??* 02/14/2013 ?? 11:00:00 ?? Adequate ?3-7/HPF ??* 02/13/2013 ?? 10:30:00 ?? Adequate ? Normal 02/12/2013 ?? 10:45:00 ?? Adequate ?3-7/HPF ??* 02/11/2013 ?? 11:00:00 ?? Adequate ?3-7/HPF ??* 02/10/2013 ?? 11:00:00 ?? Adequate ?3-7/HPF ??* ? BLOOD MORPHOLOGIC EXAMINATION ?Test: Platelet Estimate ??RBC Morph 1 ??Polychromasia ? Reference: [Adequate] ? [Normal] ? [None Seen] ? Units: 02/09/2013 ?? 10:00:00 ?? Decreased ??* ?3-7/HPF ??* 02/08/2013 ?? 11:00:00 ?? Decreased ??* 02/07/2013 ?? 17:00:00 ?? Decreased ??* ?3-7/HPF ??* 02/06/2013 ?? 09:00:00 ?? Decreased ??* ?3-7/HPF ??* 02/05/2013 ?? 11:00:00 ?? Decreased ??* ?3-7/HPF ??* 02/04/2013 ?? 12:00:00 ?? Decreased ??* 02/03/2013 ?? 11:00:00 ?? Decreased ??* ?3-7/HPF ??* 02/02/2013 ?? 10:40:00 ?? Decreased ??* ?3-7/HPF ??* 02/01/2013 ?? 10:38:00 ?? Decreased ??* ? Normal 01/31/2013 ?? 11:00:00 ?? Decreased ??* ?3-7/HPF ??* 01/30/2013 ?? 07:50:00 ?? Decreased ??* ?3-7/HPF ??* 01/29/2013 ?? 11:00:00 ?? Decreased ??* 01/28/2013 ?? 05:30:00 ?? Decreased ??* ?3-7/HPF ??* 01/27/2013 ?? 13:22:00 ?? Decreased ??* ?Test: Anisocytosis ??Poikilocytosis ??Macrocytes ? Reference: [None Seen] ?? [None Seen] ? [None Seen] ? Units: 02/18/2013 ?? 11:00:00 ? 3-7/HPF ??* 02/17/2013 ?? 11:15:00 ? 8-15/HPF ??* 02/16/2013 ?? 10:15:00 ? 3-7/HPF ??* 02/15/2013 ?? 11:00:00 ?? Slight 02/14/2013 ?? 11:00:00 ? 3-7/HPF ??* 02/12/2013 ?? 10:45:00 ?? Slight 02/11/2013 ?? 11:00:00 ? 8-15/HPF ??* 02/10/2013 ?? 11:00:00 ?? Slight ?Slight ??* ? 3-7/HPF ??* 02/09/2013 ?? 10:00:00 ?? Moderate ??* ?? Slight ??* ? 8-15/HPF ??* 02/08/2013 ?? 11:00:00 ?? Moderate ??* ? 8-15/HPF ??* 02/07/2013 ?? 17:00:00 ? 8-15/HPF ??* 02/06/2013 ?? 09:00:00 ? 3-7/HPF ??* 02/05/2013 ?? 11:00:00 ? 3-7/HPF ??* 02/04/2013 ?? 12:00:00 ?? Slight ?3-7/HPF ??* 02/02/2013 ?? 10:40:00 ?? Moderate ??* ?? Slight ??* ? 8-15/HPF ??* 01/31/2013 ?? 11:00:00 ? > 15/HPF ??* 01/30/2013 ?? 07:50:00 ? > 15/HPF ??* 01/29/2013 ?? 11:00:00 ?? Slight 01/28/2013 ?? 05:30:00 ?? Moderate ??* ?? Slight ??* ? > 15/HPF ??* 01/27/2013 ?? 13:22:00 ? > 15/HPF ??* ?Test: Microcytes ?? Echinocytes ??Ovalocytes ? Reference: [None Seen] ??[None Seen] ??[None Seen] ? Units: 02/18/2013 ?? 11:00:00 ?? 3-7/HPF ??* 02/17/2013 ?? 11:15:00 ?? 3-7/HPF ??* 02/16/2013 ?? 10:15:00 ?? 3-7/HPF ??* 02/14/2013 ?? 11:00:00 ?? 3-7/HPF ??* ?3-7/HPF ??* 02/11/2013 ?? 11:00:00 ?? 3-7/HPF ??* ?3-7/HPF ??* 02/10/2013 ?? 11:00:00 ?? 3-7/HPF ??* ?3-7/HPF ??* 02/09/2013 ?? 10:00:00 ?? 3-7/HPF ??* ?3-7/HPF ??* 02/07/2013 ?? 17:00:00 ?? 3-7/HPF ??* 02/06/2013 ?? 09:00:00 ?? 3-7/HPF ??* 02/05/2013 ?? 11:00:00 ?? 3-7/HPF ??* ?3-7/HPF ??* 02/04/2013 ?? 12:00:00 ?? 3-7/HPF ??* ?3-7/HPF ??* 02/02/2013 ?? 10:40:00 ?? 3-7/HPF ??* ?3-7/HPF ??* ? BLOOD MORPHOLOGIC EXAMINATION ?Test: Microcytes ?? Echinocytes ??Ovalocytes ? Reference: [None Seen] ??[None Seen] ??[None Seen] ? Units: 01/31/2013 ?? 11:00:00 ?? 3-7/HPF ??* ?? 3-7/HPF ??* 01/30/2013 ?? 07:50:00 ?? 3-7/HPF ??* ?? 3-7/HPF ??* 01/28/2013 ?? 05:30:00 ?? 3-7/HPF ??* ?3-7/HPF ??* ?Test: [place] Bodies ??Basophilic Stip ? Reference: [None Seen] ?[None Seen] ? Units: 02/09/2013 ?? 10:00:00 ?? Present ??* ? 3-7/HPF ??* 02/06/2013 ?? 09:00:00 ?? Present ??* 01/31/2013 ?? 11:00:00 ?? Present ??* 01/30/2013 ?? 07:50:00 ?? Present ??* 01/28/2013 ?? 05:30:00 ?? Present ??* ?Test: Tear Drops ?? Dohle Bodies ??[place] ? Reference: [None Seen] ??[None Seen] ?? [None Seen] ? Units: 02/17/2013 ?? 11:15:00 ?Present ??* 02/16/2013 ?? 10:15:00 ?Present ??* ?Present ??* 02/09/2013 ?? 10:00:00 ?Present ??* 01/31/2013 ?? 11:00:00 ?? 3-7/HPF ??* ? Present ??* 01/28/2013 ?? 05:30:00 ?Present ??* ?Test: Plt Morph 1 ?Large Platelet ? Reference: ?[0-0] ? Units: ?/HPF 02/18/2013 ?? 11:00:00 ?? Clumped ??* ? 1 ??H 02/16/2013 ?? 10:15:00 ?? Few Enlarged ??* 02/10/2013 ?? 11:00:00 ?? Few Enlarged ??* ??1 ??H 02/09/2013 ?? 10:00:00 ?? Few Enlarged ??* 02/08/2013 ?? 11:00:00 ?3 ??H 02/06/2013 ?? 09:00:00 ?2 ??H 02/04/2013 ?? 12:00:00 ?? Few Enlarged ??* ??2 ??H 01/28/2013 ?? 05:30:00 ?? Few Enlarged ??* ?Test: Giant Platelets ? Reference: ? Units: /HPF 02/16/2013 ?? 10:15:00 ?? 1 ? HEMOSTASIS AND THROMBOSIS ?Routine Coagulation Studies ?Test: PT ?INR i ?aPTT i ? Reference: [9.0-12.0] ??[0.90-1.20] ??[25.0-37.0] ? Units: sec ?sec 02/15/2013 ?? 11:00:00 ?? 10.5 ?1.03 ? 29.0 02/08/2013 ?? 11:00:00 ?? 9.5 ? 0.93 ? 30.9 02/01/2013 ?? 10:38:00 ?? 12.0 ?1.17 ? 29.4 01/26/2013 ?? 11:10:00 ?? 11.2 ?1.09 ? 33.6 ? HEMOSTASIS AND THROMBOSIS ?Routine Coagulation Studies ?Test: PT ?INR i ?aPTT i ? Reference: [9.0-12.0] ??[0.90-1.20] ??[25.0-37.0] ? Units: sec ?sec 01/24/2013 ?? 23:10:00 ?? 12.4 ??H ? 1.20 ? 37.2 ??H 01/23/2013 ?? 13:30:00 ?? 9.8 ? 0.96 ? 26.7 01/22/2013 ?? 21:01:00 ?? 9.3 ? 0.92 ? 22.4 ??L 01/22/2013 21:01:00 INR: Interpretive Data Inpatient therapeutic ranges* Atrial fibrillation ?2.0-3.0 INR Venous thrombo-embolism ?2.0-3.0 INR Bioprosthetic heart valve ?* Mechanical heart valve, bileaflet or tilting disk,aortic position ? 2.0-3.0 INR All other,or bileaflet or tilting disk, in mitral position ? 2.5-3.5 INR *See the pharmacy resource directory ([employer]) for an updated copy of the Tool Book at [email or web address] Current Interpretive Data was last revised 2012. 01/22/2013 21:01:00 aPTT: Interpretive Data Therapeutic heparin range:60.0 - 94.0 sec based on correlation with therapeutic heparin activity range of 0.3 -0.7 Units/mL. Current interpretive data was last revised on 2011. ?Test: Fibrinogen ? Reference: [170-400] ? Units: mg/dL 01/26/2013 ?? 11:10:00 ?? 881 ??H ?Special Coagulation Studies ?Test: HIT i ? Anti-heparin PF4 OD ? Reference: [Negative] ? Units: 01/26/2013 ?? 11:10:00 ?? Negative ?0.02 ? HEMOSTASIS AND THROMBOSIS ?Special Coagulation Studies 01/26/2013 11:10:00 HIT: Interpretive Data Detection of antibodies to Heparin-platelet factor 4 (heparin-PF4) complexes is performed by an OLEG method. Two results are provided: qualitative (Positive, Negative or Indeterminate) and OD units. The cut off for Positive is approximately 0.4 OD with minor day-to-day variation. The heparin-PF4 OLEG is a sensitive, but not specific, test for heparin- induced thrombocytopenia (HIT), since patients exposed to heparin can make heparin-PF4 antibodies without developing thrombocytopenia or thrombotic complications. However, the OD of the heparin-PF4 OLEG result correlates with the clinical probability of HIT (Clinical Practice Guideline on the Evaluation and Management of HIT, [employer], 2009). The OLEG result should be interpreted in the context of the patient's clinical situation. The clinical likelihood of HIT may be assessed using the 4T's : extent of thrombocytopenia, timing of platelet count fall, thrombosis or other sequelae, and other causes of thrombocytopenia (Nayeli et al., Journal of Thrombosis and Haemostasis, 2006, 4:759-765). Current interpretive data was last revised on 2011. ? SEROLOGY-BACTERIAL TESTS ?Test: H pylori, IgG ? Reference: [Negative] ? Units: 01/22/2013 ?? 21:01:00 ?? Negative ? TRANSFUSION MEDICINE ?Test: Indirect [place]. ??ABO/Rh Pat Interp ? Reference: ? Units: 02/18/2013 ?? 11:00:00 ?? Negative ?A Positive 02/15/2013 ?? 11:00:00 ?? Negative ?A Positive 02/11/2013 ?? 12:54:00 ?? Negative ?A Positive 02/08/2013 ?? 11:00:00 ?? Negative ?A Positive 02/04/2013 ?? 12:00:00 ?? Negative ?A Positive 02/01/2013 ?? 10:38:00 ?? Negative ?A Positive 01/28/2013 ?? 05:30:00 ?? Negative ?A Positive 01/22/2013 ?? 21:01:00 ?? Negative ?A Positive ?POINT OF CARE TESTS ? Chemistry ?Test: Gluc WB POC ??Gluc comment 1 ??Gluc comment 2 ? Reference: [65-199] ? Units: mg/dL 02/18/2013 ?? 11:58:00 ?? 144 02/18/2013 ?? 08:01:00 ?? 173 ?POINT OF CARE TESTS ? Chemistry ?Test: Gluc WB POC ??Gluc comment 1 ??Gluc comment 2 ? Reference: [65-199] ? Units: mg/dL 02/17/2013 ?? 21:18:00 ?? 100 ?RN Notified 02/17/2013 ?? 18:26:00 ?? 221 ??H 02/17/2013 ?? 12:43:00 ?? 147 02/17/2013 ?? 09:43:00 ?? 99 02/16/2013 ?? 20:40:00 ?? 120 02/16/2013 ?? 17:06:00 ?? 280 ??H ? RN Notified 02/16/2013 ?? 11:46:00 ?? 158 ?RN Notified 02/16/2013 ?? 07:39:00 ?? 145 ?RN Notified 02/15/2013 ?? 21:04:00 ?? 260 ??H ? RN Notified 02/15/2013 ?? 16:38:00 ?? 186 ?RN Notified 02/15/2013 ?? 14:33:00 ?? 237 ??H 02/15/2013 ?? 07:29:00 ?? 126 02/14/2013 ?? 20:46:00 ?? 281 ??H ? RN Notified 02/14/2013 ?? 19:09:00 ?? 312 ??H 02/14/2013 ?? 16:25:00 ?? 226 ??H 02/14/2013 ?? 13:29:00 ?? 212 ??H 02/14/2013 ?? 09:06:00 ?? 93 02/13/2013 ?? 20:57:00 ?? 210 ??H 02/13/2013 ?? 17:58:00 ?? 320 ??H 02/13/2013 ?? 11:29:00 ?? 170 02/13/2013 ?? 08:29:00 ?? 112 02/13/2013 ?? 03:05:00 ?? 132 02/12/2013 ?? 20:33:00 ?? 229 ??H 02/12/2013 ?? 17:54:00 ?? 269 ??H 02/12/2013 ?? 13:52:00 ?? 163 02/12/2013 ?? 10:56:00 ?? 64 ??L 02/12/2013 ?? 06:04:00 ?? 150 02/12/2013 ?? 04:32:00 ?? 51 ??L 02/12/2013 ?? 01:39:00 ?? 101 02/11/2013 ?? 19:59:00 ?? 153 02/11/2013 ?? 15:08:00 ?? 428 ??H ? RN Notified 02/11/2013 ?? 08:08:00 ?? 218 ??H 02/11/2013 ?? 02:32:00 ?? 205 ??H 02/10/2013 ?? 19:29:00 ?? 258 ??H 02/10/2013 ?? 14:39:00 ?? >450 ??C 02/10/2013 ?? 09:59:00 ?? 140 02/10/2013 ?? 08:08:00 ?? 68 ? RN Notified 02/10/2013 ?? 01:47:00 ?? 350 ??H 02/09/2013 ?? 20:02:00 ?? 326 ??H 02/09/2013 ?? 14:07:00 ?? 360 ??H 02/09/2013 ?? 07:58:00 ?? 251 ??H 02/09/2013 ?? 02:27:00 ?? 326 ??H 02/08/2013 ?? 20:07:00 ?? >450 ??C 02/08/2013 ?? 14:28:00 ?? >450 ??C ?Dr. Notified ?RN Notified 02/08/2013 ?? 07:51:00 ?? 273 ??H ? RN Notified 02/08/2013 ?? 03:23:00 ?? 422 ??H 02/07/2013 ?? 19:45:00 ?? 383 ??H 02/07/2013 ?? 13:58:00 ?? 344 ??H ? RN Notified ? Venous 02/07/2013 ?? 11:32:00 ?? >450 ??C ?RN Notified ? Venous 02/07/2013 ?? 07:40:00 ?? 222 ??H ? RN Notified ? Venous 02/07/2013 ?? 01:53:00 ?? 302 ??H 02/06/2013 ?? 19:35:00 ?? 340 ??H 02/06/2013 ?? 16:43:00 ?? 403 ??H ? RN Notified ? Venous 02/06/2013 ?? 11:59:00 ?? 242 ??H ? RN Notified ? Venous 02/06/2013 ?? 07:36:00 ?? 283 ??H ? RN Notified ? Venous 02/06/2013 ?? 06:03:00 ?? 350 ??H ?POINT OF CARE TESTS ? Chemistry ?Test: Gluc WB POC ??Gluc comment 1 ??Gluc comment 2 ? Reference: [65-199] ? Units: mg/dL 02/05/2013 ?? 23:41:00 ?? 358 ??H 02/05/2013 ?? 18:12:00 ?? >450 ??C ?RN Notified 02/05/2013 ?? 13:05:00 ?? 429 ??H ? RN Notified 02/05/2013 ?? 11:38:00 ?? >450 ??C ?RN Notified 02/05/2013 ?? 05:42:00 ?? 253 ??H 02/04/2013 ?? 23:57:00 ?? 214 ??H 02/04/2013 ?? 18:58:00 ?? 122 02/04/2013 ?? 12:10:00 ?? 203 ??H 02/04/2013 ?? 06:32:00 ?? 134 02/03/2013 ?? 23:49:00 ?? 169 02/03/2013 ?? 18:11:00 ?? 196 02/03/2013 ?? 11:48:00 ?? 224 ??H 02/03/2013 ?? 05:56:00 ?? 116 02/02/2013 ?? 23:54:00 ?? 205 ??H 02/02/2013 ?? 19:59:00 ?? 212 ??H 02/02/2013 ?? 18:09:00 ?? 257 ??H 02/02/2013 ?? 13:05:00 ?? 297 ??H ? RN Notified 02/02/2013 ?? 09:49:00 ?? 193 02/02/2013 ?? 06:25:00 ?? 232 ??H ? RN Notified 02/01/2013 ?? 23:43:00 ?? 275 ??H ? RN Notified 02/01/2013 ?? 18:00:00 ?? 297 ??H ? RN Notified 02/01/2013 ?? 11:55:00 ?? 335 ??H ? RN Notified 02/01/2013 ?? 05:43:00 ?? 220 ??H 01/31/2013 ?? 23:35:00 ?? 269 ??H 01/31/2013 ?? 16:37:00 ?? 312 ??H ? RN Notified 01/31/2013 ?? 12:04:00 ?? >450 ??C 01/31/2013 ?? 11:51:00 ?? >450 ??C ?RN Notified 01/31/2013 ?? 07:43:00 ?? 278 ??H 01/31/2013 ?? 05:57:00 ?? 312 ??H 01/31/2013 ?? 04:05:00 ?? 344 ??H 01/31/2013 ?? 02:18:00 ?? 411 ??H 01/30/2013 ?? 23:55:00 ?? >450 ??C ?RN Notified 01/30/2013 ?? 19:55:00 ?? 412 ??H ? RN Notified 01/30/2013 ?? 18:16:00 ?? 358 ??H ? RN Notified 01/30/2013 ?? 14:18:00 ?? 357 ??H ? RN Notified 01/30/2013 ?? 12:20:00 ?? 306 ??H ? RN Notified 01/30/2013 ?? 08:20:00 ?? >450 ??C ?RN Notified 01/29/2013 ?? 21:20:00 ?? 342 ??H 01/29/2013 ?? 16:40:00 ?? 289 ??H ? RN Notified ? Venous 01/29/2013 ?? 11:50:00 ?? 172 ?RN Notified ? Venous 01/29/2013 ?? 07:30:00 ?? 316 ??H ? RN Notified ? Venous 01/28/2013 ?? 21:03:00 ?? 172 ?RN Notified 01/28/2013 ?? 16:42:00 ?? 162 01/28/2013 ?? 11:50:00 ?? 211 ??H 01/28/2013 ?? 08:04:00 ?? 231 ??H 01/27/2013 ?? 20:57:00 ?? 202 ??H ? RN Notified 01/27/2013 ?? 17:12:00 ?? 222 ??H ? RN Notified 01/27/2013 ?? 12:20:00 ?? 182 ?RN Notified 01/27/2013 ?? 07:52:00 ?? 278 ??H ? RN Notified 01/26/2013 ?? 21:06:00 ?? 173 01/26/2013 ?? 18:12:00 ?? 224 ??H 01/26/2013 ?? 11:53:00 ?? 300 ??H 01/26/2013 ?? 07:56:00 ?? 220 ??H 01/25/2013 ?? 22:09:00 ?? 264 ??H 01/25/2013 ?? 16:23:00 ?? 311 ??H 01/25/2013 ?? 12:04:00 ?? 248 ??H ?POINT OF CARE TESTS ? Chemistry ?Test: Gluc WB POC ??Gluc comment 1 ??Gluc comment 2 ? Reference: [65-199] ? Units: mg/dL 01/25/2013 ?? 08:05:00 ?? 289 ??H 01/24/2013 ?? 20:04:00 ?? 328 ??H 01/24/2013 ?? 16:10:00 ?? 380 ??H 01/24/2013 ?? 12:09:00 ?? 346 ??H 01/24/2013 ?? 08:17:00 ?? 241 ??H 01/24/2013 ?? 01:56:00 ?? 237 ??H 01/23/2013 ?? 17:51:00 ?? 223 ??H ? RN Notified 01/23/2013 ?? 12:11:00 ?? 334 ??H ? RN Notified 01/23/2013 ?? 11:35:00 ?? 351 ??H ? RN Notified 01/23/2013 ?? 10:00:00 ?? 376 ??H ? RN Notified 01/23/2013 ?? 00:01:00 ?? 359 ??H ?Test: pH Art gPOC ??pCO2 Art gPOC ??pO2 Art gPOC ? Reference: [7.35-7.45] ??[35-45] ?[80-105] ? Units: ?mmHg ? mmHg 01/25/2013 ?? 01:32:00 ?? 7.47 ??H ?38 ? 64 ??L 01/24/2013 ?? 10:42:00 ?? 7.32 ??L ?43 ? 76 ??L 01/24/2013 ?? 06:01:00 ?? 7.18 ??C ?47 ??H ?437 ??H 01/24/2013 ?? 01:56:00 ?? 7.15 ??C ?50 ??H ?86 ?Test: Bicarb Art gPOC ??TCO2 Art gPOC ??O2 Sat Art gPOC ? Reference: [18-28] ?[20-30] ?[95-98] ? Units: mmol/L ? mmol/L ? % 01/25/2013 ?? 01:32:00 ?? 28 ? 29 ? 93 ??L 01/24/2013 ?? 10:42:00 ?? 22 ? 24 ? 94 ??L 01/24/2013 ?? 06:01:00 ?? 18 ? 19 ??L ?100 ??H 01/24/2013 ?? 01:56:00 ?? 17 ??L ?19 ??L ?93 ??L ?Test: Base Ex Art gPOC ??pH Eriberto gPOC ??pCO2 Eriberto gPOC ? Reference: ? Units: mmol/L ? mmHg 01/25/2013 ?? 01:32:00 ?? 3.9 01/24/2013 ?? 10:42:00 ?? -3.8 01/24/2013 ?? 06:01:00 ?? -10.7 01/24/2013 ?? 04:05:00 ? 7.16 ??C ?50 01/24/2013 ?? 01:56:00 ?? -11.5 ?Test: pO2 Eriberto gPOC ??Sodium gPOC ??Potass gPOC ? Reference: ? [135-145] ?[3.3-4.9] ? Units: mmHg ?mmol/L ? mmol/L 01/25/2013 ?? 01:32:00 ? 141 ?3.5 01/24/2013 ?? 10:42:00 ? 139 ?4.6 01/24/2013 ?? 06:01:00 ? 138 ?5.3 ??H 01/24/2013 ?? 04:05:00 ?? 44 ?137 ?5.4 ??H 01/24/2013 ?? 01:56:00 ? 136 ?5.4 ??H ?Test: Ca Ion gPOC ??Gluc gPOC ??HCT gPOC ? Reference: [4.50-5.10] ??[65-199] ?? [40.7-50.3] ? Units: mg/dL ?mg/dL ?% 01/25/2013 ?? 01:32:00 ?? 3.89 ??L ?279 ??H ? 38.0 ??L 01/24/2013 ?? 10:42:00 ?? 3.97 ??L ?299 ??H ? 39.0 ??L ?POINT OF CARE TESTS ? Chemistry ?Test: Ca Ion gPOC ??Gluc gPOC ??HCT gPOC ? Reference: [4.50-5.10] ??[65-199] ?? [40.7-50.3] ? Units: mg/dL ?mg/dL ?% 01/24/2013 ?? 06:01:00 ?? 4.17 ??L ?216 ??H ? 40.0 ??L 01/24/2013 ?? 04:05:00 ?? 4.01 ??L ?231 ??H ? 44.0 01/24/2013 ?? 01:56:00 ?? 4.01 ??L ?230 ??H ? 45.0 ?Test: Bicarb Eriebrto gPOC ??TCO2 Eriberto gPOC ? Reference: [20-30] ?[22-32] ? Units: mmol/L ? mmol/L 01/24/2013 ?? 04:05:00 ?? 18 ??L ?19 ??L ?Test: Base Ex Eriberto gPOC ??O2 Sat Eriberto gPOC ? Reference: ? [60-85] ? Units: mmol/L ?% 01/24/2013 ?? 04:05:00 ?? -10.9 ? 65 ? SUMMARY OF CRITICAL CALLBACKS ?Test: Called By ??Called To ??Credentials ??Date Notified 02/03/2013 ??11:00:00 ??See Below ??See Below ??RN ? 02/03/2013 01/30/2013 ??07:50:00 ??See Below ??See Below ??RN ? 01/30/2013 01/27/2013 ??08:44:00 ??See Below ??See Below ??RN ? 01/27/2013 01/24/2013 ??12:30:00 ??See Below ??See Below ??RN ? 01/24/2013 01/23/2013 ??15:10:00 ??See Below ??See Below ??RN ? 01/23/2013 01/23/2013 ??13:30:00 ??See Below ??See Below ??RN ? 01/23/2013 01/22/2013 ??21:01:00 ??See Below ??See Below ??RN ? 01/23/2013 02/03/2013 ??11:00:00 ??Called By ? MRea 01/30/2013 ??07:50:00 ??Called By ? MRea 01/27/2013 ??08:44:00 ??Called By ? ct 01/24/2013 ??12:30:00 ??Called By ? MRea 01/23/2013 ??15:10:00 ??Called By ? llr 01/23/2013 ??13:30:00 ??Called By ? pat 01/22/2013 ??21:01:00 ??Called By ? lrw 02/03/2013 ??11:00:00 ??Called To ? Pepper Herr ? SUMMARY OF CRITICAL CALLBACKS 01/30/2013 ??07:50:00 ??Called To ? Selwyn Carter 01/27/2013 ??08:44:00 ??Called To ? Teresa Delong 01/24/2013 ??12:30:00 ??Called To ? Cheryl Weston 01/23/2013 ??15:10:00 ??Called To ? Michelle Mitchell 01/23/2013 ??13:30:00 ??Called To ? fermín carreno 01/22/2013 ??21:01:00 ??Called To ? balwinder marie ?Test: TestName ?? Time Notified 02/03/2013 ??11:00:00 ??See Below ??1234 01/30/2013 ??07:50:00 ??See Below ??1140 01/27/2013 ??08:44:00 ??See Below ??1055 01/24/2013 ??12:30:00 ??See Below ??1433 01/23/2013 ??15:10:00 ??See Below ??1607 01/23/2013 ??13:30:00 ??See Below ??1554 01/22/2013 ??21:01:00 ??See Below ??0110 02/03/2013 ??11:00:00 ??TestName ? Glucose 01/30/2013 ??07:50:00 ??TestName ? Vancomycin Tr 01/27/2013 ??08:44:00 ??TestName ? Vanco Tr 01/24/2013 ??12:30:00 ??TestName ? Lipase 01/23/2013 ??15:10:00 ??TestName ? Lactate Whole Blood 01/23/2013 ??13:30:00 ??TestName ? lipase 01/22/2013 ??21:01:00 ??TestName ? lipase ? SPECIAL SPECIMENS ? Mislabeled Tests ?Test: Mislabel Test ??Collection Location ??Reason ? Reference: ? Units: 02/11/2013 ?? 11:00:00 ?? See Below ?6900 ? See Below ? SPECIAL SPECIMENS ? Mislabeled Tests 02/11/2013 ??11:00:00 ??Mislabel Test ? Test requested: type and screen. ? Date/Time received: ??02/11/13 0525. ? Specimen type: ??pink top. 02/11/2013 ??11:00:00 ??Reason ? One Signature on Blood Bank Specimen ?Test: Misl Resolution ? Reference: ? Units: 02/11/2013 ?? 11:00:00 ?? Testing canceled ? MICROBIOLOGY - ALL TESTS ? PROCEDURE: Aerobic, Anaerobic and Mycology Culture, Blood ?SOURCE: Blood COLLECTED: 01/23/13 ??1845 ? BODY SITE: Peripheral STARTED: 01/23/13 ??1935 FREE TEXT SOURCE: FINAL REPORT REPORTED: 01/29/13 0218 No growth ? PROCEDURE: Aerobic, Anaerobic and Mycology Culture, Blood ?SOURCE: Blood COLLECTED: 01/23/13 ??1825 ? BODY SITE: Peripheral STARTED: 01/23/13 ??1936 FREE TEXT SOURCE: FINAL REPORT REPORTED: 01/29/13 0218 No growth ? PROCEDURE: Clostridium difficile Toxin ?SOURCE: Stool COLLECTED: 01/30/13 ??1200 ? BODY SITE: STARTED: 01/30/13 ??1402 FREE TEXT SOURCE: FINAL REPORT REPORTED: 01/31/13 0542 Negative for: Clostridium difficile toxin. ? MICROBIOLOGY - ALL TESTS ? PROCEDURE: Cytomegalovirus PCR, Blood ?SOURCE: Blood COLLECTED: 02/15/13 ??1036 ? BODY SITE: STARTED: 02/15/13 ??1320 FREE TEXT SOURCE: FINAL REPORT REPORTED: 02/16/13 0643 Negative (<200 copies/ml) ORDER COMMENTS (1)Testing performed by: [facility], [place], [place]. ??[id number]. * * * ??Interpretive Results ??* * * (1)This assay is based on quantitative real-time PCR. ??The primers used amplify a conserved 61 bp region of the DNA polymerase gene of human CMV. ??Based on data from the [facility], these primers do not amplify [...] developed and its performance characteristics determined by [facility]. ??It has not been cleared or approved by the [place]S. Food and Drug Administration. ??Current interpretive data was last revised on 2009. ? MICROBIOLOGY - ALL TESTS ? PROCEDURE: Cytomegalovirus PCR, Blood ?SOURCE: Blood COLLECTED: 02/01/13 ??1038 ? BODY SITE: STARTED: 02/01/13 ??1340 FREE TEXT SOURCE: FINAL REPORT REPORTED: 02/03/13 0604 Negative (<200 copies/ml) ORDER COMMENTS (1)Testing performed by: [facility], [place], [place]. ??[address]. * * * ??Interpretive Results ??* * * (1)This assay is based on quantitative real-time PCR. ??The primers used amplify a conserved 61 bp region of the DNA polymerase gene of human CMV. ??Based on data from the [facility], these primers do not amplify [...] developed and its performance characteristics determined by [facility]. ??It has not been cleared or approved by the [place]S. Food and Drug Administration. ??Current interpretive data was last revised on 2009. ? MICROBIOLOGY - ALL TESTS ? PROCEDURE: Cytomegalovirus PCR, Blood ?SOURCE: Blood COLLECTED: 01/30/13 ??0750 ? BODY SITE: STARTED: 01/30/13 ??1128 FREE TEXT SOURCE: FINAL REPORT REPORTED: 01/31/13 0658 Negative (<200 copies/ml) ORDER COMMENTS (1)Testing performed by: [facility], [place], [place]. ??[address]. * * * ??Interpretive Results ??* * * (1)This assay is based on quantitative real-time PCR. ??The primers used amplify a conserved 61 bp region of the DNA polymerase gene of human CMV. ??Based on data from the [facility], these primers do not amplify [...] developed and its performance characteristics determined by [facility]. ??It has not been cleared or approved by the [place].S. Food and Drug Administration. ??Current interpretive data was last revised on 2009. ? MICROBIOLOGY - ALL TESTS ? PROCEDURE: Urine Culture ?SOURCE: Urine COLLECTED: 01/23/13 ??1620 ? BODY SITE: STARTED: 01/23/13 ??1744 FREE TEXT SOURCE: FINAL REPORT REPORTED: 01/25/13 1135 No growth ? PROCEDURE: VRE Surveillance Culture ?SOURCE: Stool COLLECTED: 01/30/13 ??1200 ? BODY SITE: STARTED: 01/31/13 ??0718 FREE TEXT SOURCE: FINAL REPORT REPORTED: 02/02/13 0628 Enterococcus species, vancomycin resistant * * * ??Interpretive Results ??* * * (1)This test is for Infection prevention surveillance; no charge to patient.Current interpretive data was last revised on 2011. ? MICROBIOLOGY - BLOOD/STERILE FLUID ? PROCEDURE: Aerobic, Anaerobic and Mycology Culture, Blood ?SOURCE: Blood COLLECTED: 01/23/13 ??1845 ? BODY SITE: Peripheral STARTED: 01/23/13 ??1935 FREE TEXT SOURCE: FINAL REPORT REPORTED: 01/29/13 0218 No growth ? MICROBIOLOGY - BLOOD/STERILE FLUID ? PROCEDURE: Aerobic, Anaerobic and Mycology Culture, Blood ?SOURCE: Blood COLLECTED: 01/23/13 ??1825 ? BODY SITE: Peripheral STARTED: 01/23/13 ??1936 FREE TEXT SOURCE: FINAL REPORT REPORTED: 01/29/13 0218 No growth ? MICROBIOLOGY - GASTROINTESTINAL ? PROCEDURE: Clostridium difficile Toxin ?SOURCE: Stool COLLECTED: 01/30/13 ??1200 ? BODY SITE: STARTED: 01/30/13 ??1402 FREE TEXT SOURCE: FINAL REPORT REPORTED: 01/31/13 0542 Negative for: Clostridium difficile toxin. ? PROCEDURE: VRE Surveillance Culture ?SOURCE: Stool COLLECTED: 01/30/13 ??1200 ? BODY SITE: STARTED: 01/31/13 ??0718 FREE TEXT SOURCE: FINAL REPORT REPORTED: 02/02/13 0628 Enterococcus species, vancomycin resistant * * * ??Interpretive Results ??* * * (1)This test is for Infection prevention surveillance; no charge to patient.Current interpretive data was last revised on 2011. ? MICROBIOLOGY - MOLECULAR TESTING ? PROCEDURE: Cytomegalovirus PCR, Blood ?SOURCE: Blood COLLECTED: 02/15/13 ??1036 ? BODY SITE: STARTED: 02/15/13 ??1320 FREE TEXT SOURCE: FINAL REPORT REPORTED: 02/16/13 0643 Negative (<200 copies/ml) ORDER COMMENTS (1)Testing performed by: [facility], [place]. ??[id number]. * * * ??Interpretive Results ??* * * (1)This assay is based on quantitative real-time PCR. ??The primers used amplify a conserved 61 bp region of the DNA polymerase gene of human CMV. ??Based on data from the [facility], these primers do not amplify [...] developed and its performance characteristics determined by [facility]. ??It has not been cleared or approved by the [place]S. Food and Drug Administration. ??Current interpretive data was last revised on 2009. ? MICROBIOLOGY - MOLECULAR TESTING ? PROCEDURE: Cytomegalovirus PCR, Blood ?SOURCE: Blood COLLECTED: 02/01/13 ??1038 ? BODY SITE: STARTED: 02/01/13 ??1340 FREE TEXT SOURCE: FINAL REPORT REPORTED: 02/03/13 0604 Negative (<200 copies/ml) ORDER COMMENTS (1)Testing performed by: [facility], [place], [place]. ??[id number]. * * * ??Interpretive Results ??* * * (1)This assay is based on quantitative real-time PCR. ??The primers used amplify a conserved 61 bp region of the DNA polymerase gene of human CMV. ??Based on data from the [facility], these primers do not amplify [...] developed and its performance characteristics determined by [facility]. ??It has not been cleared or approved by the [place].S. Food and Drug Administration. ??Current interpretive data was last revised on 2009. ? MICROBIOLOGY - MOLECULAR TESTING ? PROCEDURE: Cytomegalovirus PCR, Blood ?SOURCE: Blood COLLECTED: 01/30/13 ??0750 ? BODY SITE: STARTED: 01/30/13 ??1128 FREE TEXT SOURCE: FINAL REPORT REPORTED: 01/31/13 0658 Negative (<200 copies/ml) ORDER COMMENTS (1)Testing performed by: [facility], [place], [place]. ??[address]. * * * ??Interpretive Results ??* * * (1)This assay is based on quantitative real-time PCR. ??The primers used amplify a conserved 61 bp region of the DNA polymerase gene of human CMV. ??Based on data from the [facility], these primers do not amplify [...] developed and its performance characteristics determined by [facility]. ??It has not been cleared or approved by the U.S. Food and Drug Administration. ??Current interpretive data was last revised on 2009. ? MICROBIOLOGY - URINE ? PROCEDURE: Urine Culture ?SOURCE: Urine COLLECTED: 01/23/13 ??1620 ? BODY SITE: STARTED: 01/23/13 ??1744 FREE TEXT SOURCE: FINAL REPORT REPORTED: 01/25/13 1135 No growth ? CANCELLED TESTS Date ?Time ?Test ?Cancel Reason 01/22/2013 ??21:01:00 ??TSH ? [facility] Specimen QNS 01/23/2013 ??07:00:00 ??Basic Met Plas ?NC Hemolyzed 01/23/2013 ??13:30:00 ??Critical Result ? [facility] Duplicate ? Callback Chemistry 01/23/2013 ??13:30:00 ??Morph Screen ?[facility] Test not indicated 01/23/2013 ??17:59:00 ??Bld Gas Art ? [facility] Not Received 01/23/2013 ??18:12:00 ??Bld Gas Art ? [facility] Not Received 01/24/2013 ??01:18:00 ??Bld Gas Art ? Lab Operations Cancel 01/24/2013 ??12:00:00 ??Basic Met Plas ?Dup Cancel 01/24/2013 ??14:50:00 ??Na Ur Rnd ? [facility] Duplicate 01/24/2013 ??23:59:00 ??Bld Gas Art ? Lab Operations Cancel 01/25/2013 ??16:09:00 ??Vancomycin Rnd 01/26/2013 ??16:02:00 ??PCR CMVBL ? Lab Operations Cancel 01/27/2013 ??17:49:00 ??PT ?Lab Operations Cancel 01/29/2013 ??06:00:00 ??Tacrolimus Rnd 01/30/2013 ??11:00:00 ??Basic Met Plas ?Lab Operations Cancel 01/30/2013 ??11:00:00 ??CS CBC BMT ?Lab Operations Cancel 01/30/2013 ??11:00:00 ??Magnesium ? Lab Operations Cancel 01/30/2013 ??11:00:00 ??Morph Exam [facility] ?Lab Operations Cancel 01/30/2013 ??11:00:00 ??Phos Plas ? Lab Operations Cancel 01/30/2013 ??11:40:00 ??M CDIF ?Lab Operations Cancel 01/30/2013 ??11:40:00 ??M CDIF ?When Specimen Obtained ? <Avail. Activations=0> 01/30/2013 ??12:00:00 ??PCR NORO ?[facility] Canceled by Doctor 01/31/2013 ??11:00:00 ??Basic Met Plas ?Lab Operations Cancel 01/31/2013 ??11:00:00 ??CS CBC BMT ?Lab Operations Cancel 01/31/2013 ??11:00:00 ??Magnesium ? Lab Operations Cancel 01/31/2013 ??11:00:00 ??Morph Exam [facility] ?Lab Operations Cancel 01/31/2013 ??11:00:00 ??Phos Plas ? Lab Operations Cancel 02/03/2013 ??14:30:00 ??Basic Met Plas ?Lab Operations Cancel 02/06/2013 ??11:00:00 ??Basic Met Plas ?Lab Operations Cancel 02/06/2013 ??11:00:00 ??CS CBC BMT ?Lab Operations Cancel 02/06/2013 ??11:00:00 ??Magnesium ? Lab Operations Cancel 02/06/2013 ??11:00:00 ??Morph Exam [facility] ?Lab Operations Cancel 02/06/2013 ??11:00:00 ??Phos Plas ? Lab Operations Cancel 02/09/2013 ??09:59:00 ??Basic Met Plas ?Lab Operations Cancel 02/09/2013 ??09:59:00 ??CS CBC BMT ?Lab Operations Cancel 02/09/2013 ??09:59:00 ??Magnesium ? Lab Operations Cancel 02/09/2013 ??09:59:00 ??Morph Exam [facility] ?Lab Operations Cancel 02/09/2013 ??09:59:00 ??Phos Plas ? Lab Operations Cancel 02/09/2013 ??10:30:00 ??Tacrolimus Rnd Historical Provider LAB BLOOD ORDERABLES Pilar l Result Performing Organization Address [facility] de Phone Number HISTORICAL RESULTS * Blood glucose, POC (02/17/2013 9:18 PM CDT) Glucose, POC, bld 100 65 - 199 mg/dl HISTORICAL RESULTS Gluc, com 1, bld RN Notified HISTORICAL RESULTS Blood specimen (specimen) 02/17/2013 9:18 PM CDT Silva Taylor MD LAB BLOOD ORDERABLES F inal Result Performing Organization Address [facility] de Phone Number HISTORICAL RESULTS * (ABNORMAL) Blood glucose, POC (02/17/2013 6:26 PM CDT) Glucose, POC, bld 221(H) 65 - 199 mg/dl HISTORICAL RESULTS Blood specimen (specimen) 02/17/2013 6:26 PM CDT Silva Taylor MD LAB BLOOD ORDERABLES F inal Result Performing Organization Address [facility] Co de Phone Number HISTORICAL RESULTS * Blood glucose, POC (02/17/2013 12:43 PM CDT) Glucose, POC, bld 147 65 - 199 mg/dl HISTORICAL RESULTS Blood specimen (specimen) 02/17/2013 12:43 PM CDT Silva Taylor MD LAB BLOOD ORDERABLES F inal Result Performing Organization Address [facility] de Phone Number HISTORICAL RESULTS * (ABNORMAL) Plasma basic metabolic panel (02/17/2013 11:15 AM CDT) Sodium 138 135 - 145 mmol/L HISTORICAL RESULTS K, pl 3.4 3.3 - 4.9 mmol/L HISTORICAL RESULTS Chloride 94(L) 97 - 110 mmol/L HISTORICAL RESULTS CO2 35(H) 22 - 32 mmol/L HISTORICAL RESULTS A. gap 9 0 - 16 mmol/L HISTORICAL RESULTS Glucose 103 65 - 199 mg/dl HISTORICAL RESULTS BUN 9 8 - 25 mg/dl HISTORICAL RESULTS Creatinine 1.29 0.70 - 1.30 mg/dl HISTORICAL RESULTS Calcium 10.1 8.6 - 10.3 mg/dl HISTORICAL RESULTS Plasma 02/17/2013 11:1 5 AM CDT Ni Agarwal LAB BLOOD ORDERABLES Final R esult Performing Organization Address [facility] de Phone Number HISTORICAL RESULTS * Plasma phosphorus (02/17/2013 11:15 AM CDT) Phosphorus, pl 3.8 2.3 - 4.3 mg/dl HISTORICAL RESULTS Plasma 02/17/2013 11:1 5 AM CDT Ni Agarwal LAB BLOOD ORDERABLES Final R esult Performing Organization Address [facility] Co de Phone Number HISTORICAL RESULTS * Serum magnesium (02/17/2013 11:15 AM CDT) Magnesium 1.4 1.4 - 2.5 mg/dl HISTORICAL RESULTS Serum 02/17/2013 11:1 5 AM CDT Ni Agarwal LAB BLOOD ORDERABLES Final R esult Performing Organization Address [facility] Co de Phone Number HISTORICAL RESULTS * (ABNORMAL) Blood cell count (CBC) (02/17/2013 11:15 AM CDT) WBC 13.2(H) 3.8 - 9.8 K/cumm HISTORICAL RESULTS RBC 2.86(L) 4.50 - 5.70 M/cumm HISTORICAL RESULTS Hgb 10.5(L) 13.8 - 17.2 g/dl HISTORICAL RESULTS Hct 31.0(L) 40.7 - 50.3 % HISTORICAL RESULTS MCV 108.3(H) 80.0 - 97.6 fl HISTORICAL RESULTS MCH 36.6(H) 26.7 - 33.7 pg HISTORICAL RESULTS MCHC 33.8 32.7 - 35.5 g/dl HISTORICAL RESULTS Rdw 15.9(H) 11.8 - 14.6 % HISTORICAL RESULTS Platelets 271 140 - 440 K/cumm HISTORICAL RESULTS MPV 8.6 6.8 - 10.4 fl HISTORICAL RESULTS Blood specimen (specimen) 02/17/2013 11:15 AM CDT Ni Agarwal LAB BLOOD ORDERABLES Final [facility] Performing Organization Address [facility] de Phone Number HISTORICAL RESULTS * (ABNORMAL) Blood cell morphologic exam (02/17/2013 11:15 AM CDT) WBC counted 100 # of cells HISTORI RHODA RESULTS Neutrophils 67 44 - 80 % HISTORIC AL RESULTS Lymphocytes 23 13 - 44 % HISTORIC AL RESULTS Monos 8 2 - 8 % HISTORICAL RESULTS Eosinophils 1 0 - 6 % HISTORIC AL RESULTS Neutrophilic bands 1 0 - 6 % HISTORICAL RESULTS NRBC 2(H) 0 - 0 #/100 WBC HISTORICAL RESULTS Platelet estimate Adequate Adequate HISTORICAL RESULTS Macrocytosis 8-15/HPF(A) None Seen HISTO RICAL RESULTS Microcytosis 3-7/HPF(A) None Seen HISTOR ICAL RESULTS Pappenheimer bodies Present(A) None Seen HISTORICAL RESULTS Polychromasia 3-7/HPF(A) None Seen HISTO RICAL RESULTS Blood specimen (specimen) 02/17/2013 11:15 AM CDT us Ni Agarwal LAB BLOOD ORDERABLES Final R esult Performing Organization Address [facility] Co de Phone Number HISTORICAL RESULTS * Blood glucose, POC (02/17/2013 9:43 AM CDT) Glucose, POC, bld 99 65 - 199 mg/dl HISTORICAL RESULTS Blood specimen (specimen) 02/17/2013 9:43 AM CDT Silva Taylor MD LAB BLOOD ORDERABLES F inal Result Performing Organization Address [facility] Co de Phone Number HISTORICAL RESULTS * Blood glucose, POC (02/16/2013 8:40 PM CDT) Glucose, POC, bld 120 65 - 199 mg/dl HISTORICAL RESULTS Blood specimen (specimen) 02/16/2013 8:40 PM CDT Silva Taylor MD LAB BLOOD ORDERABLES F inal Result Performing Organization Address [facility] de Phone Number HISTORICAL RESULTS * (ABNORMAL) Blood glucose, POC (02/16/2013 5:06 PM CDT) Glucose, POC, bld 280(H) 65 - 199 mg/dl HISTORICAL RESULTS Gluc, com 1, bld RN Notified HISTORICAL RESULTS Blood specimen (specimen) 02/16/2013 5:06 PM CDT Silva Taylor MD LAB BLOOD ORDERABLES F inal Result Performing Organization Address [facility] Co de Phone Number HISTORICAL RESULTS * Blood glucose, POC (02/16/2013 11:46 AM CDT) Glucose, POC, bld 158 65 - 199 mg/dl HISTORICAL RESULTS Gluc, com 1, bld RN Notified HISTORICAL RESULTS Blood specimen (specimen) 02/16/2013 11:46 AM CDT Silva Taylor MD LAB BLOOD ORDERABLES F inal Result Performing Organization Address [facility] Co de Phone Number HISTORICAL RESULTS * (ABNORMAL) Plasma basic metabolic panel (02/16/2013 10:30 AM CDT) Sodium 140 135 - 145 mmol/L HISTORICAL RESULTS K, pl 3.7 3.3 - 4.9 mmol/L HISTORICAL RESULTS Chloride 96(L) 97 - 110 mmol/L HISTORICAL RESULTS CO2 38(H) 22 - 32 mmol/L HISTORICAL RESULTS A. gap 6 0 - 16 mmol/L HISTORICAL RESULTS Glucose 114 65 - 199 mg/dl HISTORICAL RESULTS BUN 10 8 - 25 mg/dl HISTORICAL RESULTS Creatinine 0.98 0.70 - 1.30 mg/dl HISTORICAL RESULTS Calcium 9.8 8.6 - 10.3 mg/dl HISTORICAL RESULTS Plasma 02/16/2013 10:3 0 AM CDT us Ni Agarwal LAB BLOOD ORDERABLES Final R esult Performing Organization Address [facility] de Phone Number HISTORICAL RESULTS * Plasma phosphorus (02/16/2013 10:30 AM CDT) Phosphorus, pl 4.3 2.3 - 4.3 mg/dl HISTORICAL RESULTS Plasma 02/16/2013 10:3 0 AM CDT us Ni Agarwal LAB BLOOD ORDERABLES Final R esult Performing Organization Address [facility] Co de Phone Number HISTORICAL RESULTS * Serum magnesium (02/16/2013 10:30 AM CDT) Magnesium 1.9 1.4 - 2.5 mg/dl HISTORICAL RESULTS Serum 02/16/2013 10:3 0 AM CDT us Ni Agarwal LAB BLOOD ORDERABLES Final R esult Performing Organization Address [facility] de Phone Number HISTORICAL RESULTS * (ABNORMAL) Blood cell count (CBC) (02/16/2013 10:15 AM CDT) WBC 10.7(H) 3.8 - 9.8 K/cumm HISTORICAL RESULTS RBC 2.89(L) 4.50 - 5.70 M/cumm HISTORICAL RESULTS Hgb 10.5(L) 13.8 - 17.2 g/dl HISTORICAL RESULTS Hct 31.1(L) 40.7 - 50.3 % HISTORICAL RESULTS MCV 107.9(H) 80.0 - 97.6 fl HISTORICAL RESULTS MCH 36.4(H) 26.7 - 33.7 pg HISTORICAL RESULTS MCHC 33.7 32.7 - 35.5 g/dl HISTORICAL RESULTS Rdw 15.0(H) 11.8 - 14.6 % HISTORICAL RESULTS Platelets 252 140 - 440 K/cumm HISTORICAL RESULTS MPV 8.8 6.8 - 10.4 fl HISTORICAL RESULTS Blood specimen (specimen) 02/16/2013 10:15 AM CDT Ni Agarwal LAB BLOOD ORDERABLES Final R [facility] Performing Organization Address [facility] de Phone Number HISTORICAL RESULTS * (ABNORMAL) Blood cell morphologic exam (02/16/2013 10:15 AM CDT) WBC counted 100 # of cells HISTORI RHODA RESULTS Neutrophils 76 44 - 80 % HISTORIC AL RESULTS Lymphocytes 20 13 - 44 % HISTORIC AL RESULTS Monos 4 2 - 8 % HISTORICAL RESULTS Dohle bodies Present(A) None Seen HISTOR ICAL RESULTS Giant platelets 1 /hpf HIST ORICAL RESULTS Platelet estimate Adequate Adequate HISTORICAL RESULTS Platelet morphology Few Enlarged(A) HISTORICAL RESULTS Macrocytosis 3-7/HPF(A) None Seen HISTOR ICAL RESULTS Microcytosis 3-7/HPF(A) None Seen HISTOR ICAL RESULTS Pappenheimer bodies Present(A) None Seen HISTORICAL RESULTS Blood specimen (specimen) 02/16/2013 10:15 AM CDT iN Agarwal LAB BLOOD ORDERABLES Final R [facility] Performing Organization Address [facility] de Phone Number HISTORICAL RESULTS * Blood glucose, POC (02/16/2013 7:39 AM CDT) Glucose, POC, bld 145 65 - 199 mg/dl HISTORICAL RESULTS Gluc, com 1, bld RN Notified HISTORICAL RESULTS Blood specimen (specimen) 02/16/2013 7:39 AM CDT Silva Taylor MD LAB BLOOD ORDERABLES F inal Result Performing Organization Address [facility] Co de Phone Number HISTORICAL RESULTS * Blood tacrolimus (FK-506), trough drug level (02/15/2013 9:30 PM CDT) Tacrolimus, trough 2.6 ng/ml H ISTORICAL RESULTS Comment: Interpretive Data This test was developed using an analyte specific reagent. ??Its performance characteristics were determined by the [facility] in a manner consistent with CLIA requirements. This test has not been cleared or approved by the U.S. Food and Drug Administration. Current interpretive data was last revised on 2012. Blood specimen (specimen) 02/15/2013 9:30 PM CDT Result [facility] Raman Lopez LAB BLOOD ORDERABLES Fin al Result Performing Organization Address [facility] Co de Phone Number HISTORICAL RESULTS * (ABNORMAL) Blood glucose, POC (02/15/2013 9:04 PM CDT) Pathologist [facility] Glucose, POC, bld 260(H) 65 - 199 mg/dl HISTORICAL RESULTS Gluc, com 1, bld RN Notified HISTORICAL RESULTS Blood specimen (specimen) 02/15/2013 9:04 PM CDT Silva Taylor MD LAB BLOOD ORDERABLES F inal Result Performing Organization Address [facility] Co de Phone Number HISTORICAL RESULTS * Blood glucose, POC (02/15/2013 4:38 PM CDT) Glucose, POC, bld 186 65 - 199 mg/dl HISTORICAL RESULTS Gluc, com 1, bld RN Notified HISTORICAL RESULTS Blood specimen (specimen) 02/15/2013 4:38 PM CDT Silva Taylor MD LAB BLOOD ORDERABLES F inal Result HISTORICAL RESULTS * (ABNORMAL) Blood glucose, POC (02/15/2013 2:33 PM CDT) Glucose, POC, bld 237(H) 65 - 199 mg/dl HISTORICAL RESULTS Blood specimen (specimen) 02/15/2013 2:33 PM CDT Silva Taylor MD LAB BLOOD ORDERABLES F inal Result Performing Organization Address [facility] Co de Phone Number HISTORICAL RESULTS * (ABNORMAL) Plasma comprehensive metabolic panel (02/15/2013 11:00 AM CDT) Pathologist [facility] Sodium 139 135 - 145 mmol/L HISTORICAL RESULTS K, pl 3.7 3.3 - 4.9 mmol/L HISTORICAL RESULTS Chloride 94(L) 97 - 110 mmol/L HISTORICAL RESULTS CO2 35(H) 22 - 32 mmol/L HISTORICAL RESULTS A. gap 10 0 - 16 mmol/L HISTORICAL RESULTS Glucose 128 65 - 199 mg/dl HISTORICAL RESULTS BUN 11 8 - 25 mg/dl HISTORICAL RESULTS Creatinine 1.07 0.70 - 1.30 mg/dl HISTORICAL RESULTS Calcium 9.6 8.6 - 10.3 mg/dl HISTORICAL RESULTS Protein, pl 6.5 6.5 - 8.5 g/dl HISTORICAL RESULTS Alb 3.6 3.6 - 5.0 g/dl HISTORICAL RESULTS Bilirubin 0.3 0.3 - 1.1 mg/dl HISTORICAL RESULTS Alk phos 167(H) 38 - 126 Units/L HISTORICAL RESULTS AST 47 11 - 47 Units/L HISTORICAL RESULTS ALT 54(H) 7 - 53 Units/L HISTORICAL RESULTS Plasma 02/15/2013 11:0 0 AM CDT Ni Agarwal LAB BLOOD ORDERABLES Final R esult Performing Organization Address [facility]/ZIP Co de Phone Number HISTORICAL RESULTS * (ABNORMAL) Serum lactate dehydrogenase (LDH) (02/15/2013 11:00 AM CDT) Lactate dehydrogenase (LDH) 298(H) 100 - 250 Units/L HISTORICAL RESULTS Serum 02/15/2013 11:0 0 AM CDT Result [facility] Ni Nimisha Agarwal LAB BLOOD ORDERABLES Final [facility] Performing Organization Address [facility] de Phone Number HISTORICAL RESULTS * Plasma partial thromboplastin time (PTT) (02/15/2013 11:00 AM CDT) APTT 29.0 25.0 - 37.0 seconds HISTORICAL RESULTS Comment: Interpretive Data Therapeutic heparin range:60.0 - 94.0 sec based on correlation with therapeutic heparin activity range of 0.3 -0.7 Units/mL. Current interpretive data was last revised on 2011. Plasma 02/15/2013 11:0 0 AM CDT Result [facility] Ni D Agarwal LAB BLOOD ORDERABLES Final [facility] Performing Organization Address [facility] de Phone Number HISTORICAL RESULTS * Plasma phosphorus (02/15/2013 11:00 AM CDT) Phosphorus, pl 3.8 2.3 - 4.3 mg/dl HISTORICAL RESULTS Plasma 02/15/2013 11:0 0 AM CDT Result [facility] Ni Rosswin LAB BLOOD ORDERABLES Final [facility] Performing Organization Address [facility] de Phone Number HISTORICAL RESULTS * Plasma prothrombin time (PT) (02/15/2013 11:00 AM CDT) Prothrombin time (PT) 10.5 9.0 - 12.0 seconds HISTORICAL RESULTS INR 1.03 0.90 - 1.20 HISTORIC AL RESULTS Comment: Interpretive Data Inpatient therapeutic ranges* Atrial fibrillation ?2.0-3.0 INR Venous thrombo-embolism ?2.0-3.0 INR Bioprosthetic heart valve ?* Mechanical heart valve, bileaflet or tilting disk,aortic position ? 2.0-3.0 INR All other,or bileaflet or tilting disk, in mitral position ? 2.5-3.5 INR *See the pharmacy resource directory (PHRED) for an updated copy of the Tool Book at [email or web address] Current Interpretive Data was last revised 2012. Plasma 02/15/2013 11:0 0 AM CDT Ni Agarwal LAB BLOOD ORDERABLES Final R [facility] Performing Organization Address [facility] de Phone Number HISTORICAL RESULTS * Serum uric acid (02/15/2013 11:00 AM CDT) Uric acid 7.2 3.0 - 8.0 mg/dl HISTORICAL RESULTS Serum 02/15/2013 11:0 0 AM CDT Ni Agarwal LAB BLOOD ORDERABLES Final [facility] Performing Organization Address [facility] de Phone Number HISTORICAL RESULTS * Serum magnesium (02/15/2013 11:00 AM CDT) Magnesium 1.5 1.4 - 2.5 mg/dl HISTORICAL RESULTS Serum 02/15/2013 11:0 0 AM CDT Ni Agarwal LAB BLOOD ORDERABLES Final [facility] Performing Organization Address [facility] de Phone Number HISTORICAL RESULTS * (ABNORMAL) Blood cell count (CBC) (02/15/2013 11:00 AM CDT) WBC 10.5(H) 3.8 - 9.8 K/cumm HISTORICAL RESULTS RBC 2.72(L) 4.50 - 5.70 M/cumm HISTORICAL RESULTS Hgb 9.8(L) 13.8 - 17.2 g/dl HISTORICAL RESULTS Hct 29.5(L) 40.7 - 50.3 % HISTORICAL RESULTS MCV 108.6(H) 80.0 - 97.6 fl HISTORICAL RESULTS MCH 36.0(H) 26.7 - 33.7 pg HISTORICAL RESULTS MCHC 33.1 32.7 - 35.5 g/dl HISTORICAL RESULTS Rdw 14.7(H) 11.8 - 14.6 % HISTORICAL RESULTS Platelets 224 140 - 440 K/cumm HISTORICAL RESULTS MPV 9.5 6.8 - 10.4 fl HISTORICAL RESULTS Blood specimen (specimen) 02/15/2013 11:00 AM CDT Ni Agarwal LAB BLOOD ORDERABLES Final R esult HISTORICAL RESULTS * Blood ABO, Rh, indirect ab screen (02/15/2013 11:00 AM CDT) ABO, Rho(D) A Positive HISTORI RHODA RESULTS Ursula, indirect Negative HISTORICAL RESULTS Blood specimen (specimen) 02/15/2013 11:00 AM CDT Ni Agarwal LAB BLOOD ORDERABLES Final R esult HISTORICAL RESULTS * (ABNORMAL) Blood cell morphologic exam (02/15/2013 11:00 AM CDT) WBC counted 100 # of cells HISTORI RHODA RESULTS Neutrophils 65 44 - 80 % HISTORIC AL RESULTS Lymphocytes 24 13 - 44 % HISTORIC AL RESULTS Monos 8 2 - 8 % HISTORICAL RESULTS Eosinophils 1 0 - 6 % HISTORIC AL RESULTS Basophils 1 0 - 3 % HISTORICAL RESULTS Neutrophilic bands 1 0 - 6 % HISTORICAL RESULTS Platelet estimate Adequate Adequate HISTORICAL RESULTS Anisocytosis Trace None Seen HISTORI RHODA RESULTS Polychromasia 8-15/HPF(A) None Seen HIST ORICAL RESULTS Blood specimen (specimen) 02/15/2013 11:00 AM CDT Ni Agarwal LAB BLOOD ORDERABLES Final R esult HISTORICAL RESULTS * Cytomegalovirus (CMV) PCR (02/15/2013 10:36 AM CDT) Blood specimen (specimen) (Unknown) 02/15/2013 10:36 AM CDT 02/15/2013 1:20 PM CDT Impressions HISTORICAL RESULTS - 02/16/2013 6:43 AM CDT This assay is based on quantitative real-time PCR. ??The primers used amplify a conserved 61 bp region of the DNA polymerase gene of human CMV. ??Based on data from the [facility], these primers do not amplify [...] developed and its performance characteristics determined by [facility]. ??It has not been cleared or approved by the U.S. Food and Drug Administration. ?? Current interpretive data was last revised on 2009. Narrative HISTORICAL RESULTS - 02/16/2013 6:43 AM CDT Negative (<200 copies/ml) us Historical Provider LAB MICROBIOLOGY - GENERA L ORDERABLES Final Result Performing Organization Address [facility] de Phone Number HISTORICAL RESULTS * Blood glucose, POC (02/15/2013 7:29 AM CDT) Glucose, POC, bld 126 65 - 199 mg/dl HISTORICAL RESULTS Blood specimen (specimen) 02/15/2013 7:29 AM CDT Silva Taylor MD LAB BLOOD ORDERABLES F inal Result Performing Organization Address [facility] de Phone Number HISTORICAL RESULTS * All Microbiology Report Section (02/15/2013 12:00 AM CDT) 02/15/2013 Narrative HISTORICAL RESULTS - 02/16/2013 10:36 AM CDT ? [facility] ?[address] [facility] [address] ?[place], [place] [address] ? Patient Name: ??KAMRONBRI ? Med Rec Number: [id number] ? Fin Number: ?[id number] ? Date: ?1965 ? Sex/Age: ? Male 47 years ? Admit Date: ?01/22/2013 ? Discharge Date: ? Doctor: ?DiPersio, Josué F ? Facility: ?[facility] ? Location: ?[id number] ?* Abnormal ??A Alert ??f Footnote ??^ Corrected ??L Low ??H High ?i Interp Data ??@ Ref Lab ? Chart Type:Cumulative ?* * * * MICROBIOLOGY - MOLECULAR TESTING * * * * ?PROCEDURE: Cytomegalovirus PCR, Blood ? SOURCE: Blood ? COLLECTED: 03/31/13 ??1036 ?BODY SITE: ? STARTED: 03/31/13 ??1320 ? FREE TEXT SOURCE: ? FINAL REPORT ? REPORTED: 02/16/13 0643 ? Negative (<200 copies/ml) ? ORDER COMMENTS ? (1)Testing performed by: [facility], [place], ? [place]. ??[address]. ?* * * ??Interpretive Results ??* * * ? (1)This assay is based on quantitative real-time PCR. ??The primers ? used amplify a conserved 61 bp region of the DNA polymerase gene ? of human CMV. ??Based on data from the [facility], these [...] its performance characteristics determined by . ? [facility]. ??It has not been cleared ? or approved by the U.S. Food and Drug Administration. ??Current ? interpretive data was last revised on 2009. ? Historical Provider LAB MICROBIOLOGY - GENERA L ORDERABLES Final Result Performing Organization Address [facility]/ZIP Co de Phone Number HISTORICAL RESULTS * (ABNORMAL) Blood glucose, POC (02/14/2013 8:46 PM CDT) Pathologist [facility] Glucose, POC, bld 281(H) 65 - 199 mg/dl HISTORICAL RESULTS Gluc, com 1, bld RN Notified HISTORICAL RESULTS Blood specimen (specimen) 02/14/2013 8:46 PM CDT Silva Taylor MD LAB BLOOD ORDERABLES F inal Result Performing Organization Address [facility]/ZIP Co de Phone Number HISTORICAL RESULTS * (ABNORMAL) Blood glucose, POC (02/14/2013 7:09 PM CDT) Pathologist [facility] Glucose, POC, bld 312(H) 65 - 199 mg/dl HISTORICAL RESULTS Blood specimen (specimen) 02/14/2013 7:09 PM CDT Silva Taylor MD LAB BLOOD ORDERABLES F inal Result Performing Organization Address [facility] de Phone Number HISTORICAL RESULTS * (ABNORMAL) Blood glucose, POC (02/14/2013 4:25 PM CDT) Glucose, POC, bld 226(H) 65 - 199 mg/dl HISTORICAL RESULTS Blood specimen (specimen) 02/14/2013 4:25 PM CDT Silva Taylor MD LAB BLOOD ORDERABLES F inal Result Performing Organization Address [facility] de Phone Number HISTORICAL RESULTS * (ABNORMAL) Blood glucose, POC (02/14/2013 1:29 PM CDT) Glucose, POC, bld 212(H) 65 - 199 mg/dl HISTORICAL RESULTS Blood specimen (specimen) 02/14/2013 1:29 PM CDT Silva Taylor MD LAB BLOOD ORDERABLES F inal Result Performing Organization Address [facility] de Phone Number HISTORICAL RESULTS * (ABNORMAL) Plasma basic metabolic panel (02/14/2013 11:00 AM CDT) Sodium 136 135 - 145 mmol/L HISTORICAL RESULTS K, pl 3.9 3.3 - 4.9 mmol/L HISTORICAL RESULTS Chloride 93(L) 97 - 110 mmol/L HISTORICAL RESULTS CO2 34(H) 22 - 32 mmol/L HISTORICAL RESULTS A. gap 9 0 - 16 mmol/L HISTORICAL RESULTS Glucose 171 65 - 199 mg/dl HISTORICAL RESULTS BUN 12 8 - 25 mg/dl HISTORICAL RESULTS Creatinine 1.19 0.70 - 1.30 mg/dl HISTORICAL RESULTS Calcium 9.7 8.6 - 10.3 mg/dl HISTORICAL RESULTS Plasma 02/14/2013 11:0 0 AM CDT us Ni Agarwal LAB BLOOD ORDERABLES Final R esult Performing Organization Address [facility] de Phone Number HISTORICAL RESULTS * Plasma phosphorus (02/14/2013 11:00 AM CDT) Phosphorus, pl 3.0 2.3 - 4.3 mg/dl HISTORICAL RESULTS Plasma 02/14/2013 11:0 0 AM CDT Ni Agarwal LAB BLOOD ORDERABLES Final [facility] Performing Organization Address [facility] de Phone Number HISTORICAL RESULTS * Serum magnesium (02/14/2013 11:00 AM CDT) Magnesium 1.6 1.4 - 2.5 mg/dl HISTORICAL RESULTS Serum 02/14/2013 11:0 0 AM CDT Ni Agarwal LAB BLOOD ORDERABLES Final R [facility] Performing Organization Address [facility] de Phone Number HISTORICAL RESULTS * (ABNORMAL) Blood cell count (CBC) (02/14/2013 11:00 AM CDT) WBC 17.8(H) 3.8 - 9.8 K/cumm HISTORICAL RESULTS RBC 2.85(L) 4.50 - 5.70 M/cumm HISTORICAL RESULTS Hgb 10.1(L) 13.8 - 17.2 g/dl HISTORICAL RESULTS Hct 30.6(L) 40.7 - 50.3 % HISTORICAL RESULTS MCV 107.2(H) 80.0 - 97.6 fl HISTORICAL RESULTS MCH 35.3(H) 26.7 - 33.7 pg HISTORICAL RESULTS MCHC 32.9 32.7 - 35.5 g/dl HISTORICAL RESULTS Rdw 14.7(H) 11.8 - 14.6 % HISTORICAL RESULTS Platelets 217 140 - 440 K/cumm HISTORICAL RESULTS MPV 9.7 6.8 - 10.4 fl HISTORICAL RESULTS Blood specimen (specimen) 02/14/2013 11:00 AM CDT Ni Agarwal LAB BLOOD ORDERABLES Final R esult Performing Organization Address [facility] de Phone Number HISTORICAL RESULTS * (ABNORMAL) Blood cell morphologic exam (02/14/2013 11:00 AM CDT) WBC counted 100 # of cells HISTORI RHODA RESULTS Neutrophils 87(H) 44 - 80 % HISTORIC AL RESULTS Lymphocytes 6(L) 13 - 44 % HISTORIC AL RESULTS Monos 7 2 - 8 % HISTORICAL RESULTS NRBC 1(H) 0 - 0 #/100 WBC HISTORICAL RESULTS Platelet estimate Adequate Adequate HISTORICAL RESULTS Macrocytosis 3-7/HPF(A) None Seen HISTOR ICAL RESULTS Microcytosis 3-7/HPF(A) None Seen HISTOR ICAL RESULTS Ovalocytes 3-7/HPF(A) None Seen HISTORIC AL RESULTS Polychromasia 3-7/HPF(A) None Seen HISTO RICAL RESULTS Blood specimen (specimen) 02/14/2013 11:00 AM CDT Ni Agarwal LAB BLOOD ORDERABLES Final R esult Performing Organization Address [facility] de Phone Number HISTORICAL RESULTS * Blood glucose, POC (02/14/2013 9:06 AM CDT) Glucose, POC, bld 93 65 - 199 mg/dl HISTORICAL RESULTS Blood specimen (specimen) 02/14/2013 9:06 AM CDT Silva Taylor MD LAB BLOOD ORDERABLES F inal Result Performing Organization Address [facility] de Phone Number HISTORICAL RESULTS * (ABNORMAL) Blood glucose, POC (02/13/2013 8:57 PM CDT) Glucose, POC, bld 210(H) 65 - 199 mg/dl HISTORICAL RESULTS Blood specimen (specimen) 02/13/2013 8:57 PM CDT Silva Taylor MD LAB BLOOD ORDERABLES F inal Result Performing Organization Address [facility] de Phone Number HISTORICAL RESULTS * (ABNORMAL) Blood glucose, POC (02/13/2013 5:58 PM CDT) Glucose, POC, bld 320(H) 65 - 199 mg/dl HISTORICAL RESULTS Blood specimen (specimen) 02/13/2013 5:58 PM CDT Silva Taylor MD LAB BLOOD ORDERABLES F inal Result Performing Organization Address [facility] de Phone Number HISTORICAL RESULTS * Blood glucose, POC (02/13/2013 11:29 AM CDT) Glucose, POC, bld 170 65 - 199 mg/dl HISTORICAL RESULTS Blood specimen (specimen) 02/13/2013 11:29 AM CDT Silva Taylor MD LAB BLOOD ORDERABLES F inal Result Performing Organization Address [facility] de Phone Number HISTORICAL RESULTS * (ABNORMAL) Plasma basic metabolic panel (02/13/2013 10:30 AM CDT) Sodium 140 135 - 145 mmol/L HISTORICAL RESULTS K, pl 3.9 3.3 - 4.9 mmol/L HISTORICAL RESULTS Chloride 97 97 - 110 mmol/L HISTORICAL RESULTS CO2 36(H) 22 - 32 mmol/L HISTORICAL RESULTS A. gap 7 0 - 16 mmol/L HISTORICAL RESULTS BUN 13 8 - 25 mg/dl HISTORICAL RESULTS Creatinine 1.16 0.70 - 1.30 mg/dl HISTORICAL RESULTS Calcium 9.7 8.6 - 10.3 mg/dl HISTORICAL RESULTS Glucose 129 65 - 199 mg/dl HISTORICAL RESULTS Comment:{Repeated and verifi ed.} Plasma 02/13/2013 10:3 0 AM CDT Ni Agarwal LAB BLOOD ORDERABLES Final R esult Performing Organization Address [facility] de Phone Number HISTORICAL RESULTS * Plasma phosphorus (02/13/2013 10:30 AM CDT) Phosphorus, pl 3.5 2.3 - 4.3 mg/dl HISTORICAL RESULTS Plasma 02/13/2013 10:3 0 AM CDT Ni Agarwal LAB BLOOD ORDERABLES Final R esult Performing Organization Address [facility] Co de Phone Number HISTORICAL RESULTS * Serum magnesium (02/13/2013 10:30 AM CDT) Magnesium 1.4 1.4 - 2.5 mg/dl HISTORICAL RESULTS Serum 02/13/2013 10:3 0 AM CDT Ni Rosswin LAB BLOOD ORDERABLES Final [facility] Performing Organization Address [facility] de Phone Number HISTORICAL RESULTS * (ABNORMAL) Blood cell count (CBC) (02/13/2013 10:30 AM CDT) WBC 11.8(H) 3.8 - 9.8 K/cumm HISTORICAL RESULTS RBC 2.52(L) 4.50 - 5.70 M/cumm HISTORICAL RESULTS Hgb 9.2(L) 13.8 - 17.2 g/dl HISTORICAL RESULTS Hct 27.3(L) 40.7 - 50.3 % HISTORICAL RESULTS MCV 108.2(H) 80.0 - 97.6 fl HISTORICAL RESULTS MCH 36.3(H) 26.7 - 33.7 pg HISTORICAL RESULTS MCHC 33.6 32.7 - 35.5 g/dl HISTORICAL RESULTS Rdw 14.1 11.8 - 14.6 % HISTORICAL RESULTS Platelets 184 140 - 440 K/cumm HISTORICAL RESULTS MPV 9.2 6.8 - 10.4 fl HISTORICAL RESULTS Blood specimen (specimen) 02/13/2013 10:30 AM CDT Ni Rosswin LAB BLOOD ORDERABLES Final R esult Performing Organization Address [facility] Co de Phone Number HISTORICAL RESULTS * (ABNORMAL) Blood cell morphologic exam (02/13/2013 10:30 AM CDT) WBC counted 100 # of cells HISTORI RHODA RESULTS Neutrophils 76 44 - 80 % HISTORIC AL RESULTS Lymphocytes 12(L) 13 - 44 % HISTORIC AL RESULTS Monos 10(H) 2 - 8 % HISTORICAL RESULTS Neutrophilic bands 1 0 - 6 % HISTORICAL RESULTS Neutrophilic myelocytes 1(H) 0 - 0 % HISTORICAL RESULTS Platelet estimate Adequate Adequate HISTORICAL RESULTS RBC morphology Normal Normal HISTO RICAL RESULTS Blood specimen (specimen) 02/13/2013 10:30 AM CDT Ni Agarwal LAB BLOOD ORDERABLES Final R esult Performing Organization Address [facility] de Phone Number HISTORICAL RESULTS * Blood glucose, POC (02/13/2013 8:29 AM CDT) Glucose, POC, bld 112 65 - 199 mg/dl HISTORICAL RESULTS Blood specimen (specimen) 02/13/2013 8:29 AM CDT Silva Taylor MD LAB BLOOD ORDERABLES F inal Result Performing Organization Address [facility] Phone Number HISTORICAL RESULTS * Blood glucose, POC (02/13/2013 3:05 AM CDT) Glucose, POC, bld 132 65 - 199 mg/dl HISTORICAL RESULTS Blood specimen (specimen) 02/13/2013 3:05 AM CDT Silva Taylor MD LAB BLOOD ORDERABLES F inal Result Performing Organization Address [facility] Phone Number HISTORICAL RESULTS * (ABNORMAL) Blood glucose, POC (02/12/2013 8:33 PM CDT) Glucose, POC, bld 229(H) 65 - 199 mg/dl HISTORICAL RESULTS Blood specimen (specimen) 02/12/2013 8:33 PM CDT Silva Taylor MD LAB BLOOD ORDERABLES F inal Result Performing Organization Address [facility] de Phone Number HISTORICAL RESULTS * (ABNORMAL) Blood glucose, POC (02/12/2013 5:54 PM CDT) Glucose, POC, bld 269(H) 65 - 199 mg/dl HISTORICAL RESULTS Blood specimen (specimen) 02/12/2013 5:54 PM CDT Silva Taylor MD LAB BLOOD ORDERABLES F inal Result Performing Organization Address [facility] de Phone Number HISTORICAL RESULTS * Blood glucose, POC (02/12/2013 1:52 PM CDT) Pathologist [facility] Glucose, POC, bld 163 65 - 199 mg/dl HISTORICAL RESULTS Blood specimen (specimen) 02/12/2013 1:52 PM CDT Silva Taylor MD LAB BLOOD ORDERABLES F inal Result Performing Organization Address [facility] de Phone Number HISTORICAL RESULTS * (ABNORMAL) Blood glucose, POC (02/12/2013 10:56 AM CDT) [facility] Glucose, POC, bld 64(L) 65 - 199 mg/dl HISTORICAL RESULTS Blood specimen (specimen) 02/12/2013 10:56 AM CDT Silva Taylor MD LAB BLOOD ORDERABLES F inal Result Performing Organization Address [facility] de Phone Number HISTORICAL RESULTS * (ABNORMAL) Plasma basic metabolic panel (02/12/2013 10:45 AM CDT) Pathologist [facility] Sodium 142 135 - 145 mmol/L HISTORICAL RESULTS K, pl 4.1 3.3 - 4.9 mmol/L HISTORICAL RESULTS Chloride 99 97 - 110 mmol/L HISTORICAL RESULTS CO2 36(H) 22 - 32 mmol/L HISTORICAL RESULTS A. gap 7 0 - 16 mmol/L HISTORICAL RESULTS Glucose 64(L) 65 - 199 mg/dl HISTORICAL RESULTS BUN 12 8 - 25 mg/dl HISTORICAL RESULTS Creatinine 0.84 0.70 - 1.30 mg/dl HISTORICAL RESULTS Calcium 9.8 8.6 - 10.3 mg/dl HISTORICAL RESULTS Plasma 02/12/2013 10:4 5 AM CDT Ni Nimisha Agarwal LAB BLOOD ORDERABLES Final R esult Performing Organization Address City/[facility] Co de Phone Number HISTORICAL RESULTS * (ABNORMAL) Plasma phosphorus (02/12/2013 10:45 AM CDT) Phosphorus, pl 4.8(H) 2.3 - 4.3 mg/dl HISTORICAL RESULTS Plasma 02/12/2013 10:4 5 AM CDT Ni Nimisha Agarwal LAB BLOOD ORDERABLES Final R [facility] Performing Organization Address [facility] de Phone Number HISTORICAL RESULTS * Serum magnesium (02/12/2013 10:45 AM CDT) Magnesium 1.7 1.4 - 2.5 mg/dl HISTORICAL RESULTS Serum 02/12/2013 10:4 5 AM CDT Ni Nimisha Agarwal LAB BLOOD ORDERABLES Final R [facility] Performing Organization Address [facility] de Phone Number HISTORICAL RESULTS * (ABNORMAL) Blood cell count (CBC) (02/12/2013 10:45 AM CDT) WBC 12.6(H) 3.8 - 9.8 K/cumm HISTORICAL RESULTS RBC 2.64(L) 4.50 - 5.70 M/cumm HISTORICAL RESULTS Hgb 9.6(L) 13.8 - 17.2 g/dl HISTORICAL RESULTS Hct 28.4(L) 40.7 - 50.3 % HISTORICAL RESULTS MCV 107.5(H) 80.0 - 97.6 fl HISTORICAL RESULTS MCH 36.4(H) 26.7 - 33.7 pg HISTORICAL RESULTS MCHC 33.9 32.7 - 35.5 g/dl HISTORICAL RESULTS Rdw 14.4 11.8 - 14.6 % HISTORICAL RESULTS Platelets 170 140 - 440 K/cumm HISTORICAL RESULTS MPV 9.2 6.8 - 10.4 fl HISTORICAL RESULTS Blood specimen (specimen) 02/12/2013 10:45 AM CDT Ni Nimisha Agarwal LAB BLOOD ORDERABLES Final R esult Performing Organization Address [facility] de Phone Number HISTORICAL RESULTS * (ABNORMAL) Blood cell morphologic exam (02/12/2013 10:45 AM CDT) WBC counted 100 # of cells HISTORI RHODA RESULTS Neutrophils 78 44 - 80 % HISTORIC AL RESULTS Lymphocytes 11(L) 13 - 44 % HISTORIC AL RESULTS Monos 8 2 - 8 % HISTORICAL RESULTS Eosinophils 1 0 - 6 % HISTORIC AL RESULTS Neutrophilic bands 1 0 - 6 % HISTORICAL RESULTS Neutrophilic myelocytes 1(H) 0 - 0 % HISTORICAL RESULTS NRBC 2(H) 0 - 0 #/100 WBC HISTORICAL RESULTS Platelet estimate Adequate Adequate HISTORICAL RESULTS Anisocytosis Trace None Seen HISTORI RHODA RESULTS Polychromasia 3-7/HPF(A) None Seen HISTO RICAL RESULTS Blood specimen (specimen) 02/12/2013 10:45 AM CDT Ni Agarwal LAB BLOOD ORDERABLES Final R esult Performing Organization Address [facility] Phone Number HISTORICAL RESULTS * Blood glucose, POC (02/12/2013 6:04 AM CDT) Glucose, POC, bld 150 65 - 199 mg/dl HISTORICAL RESULTS Blood specimen (specimen) 02/12/2013 6:04 AM CDT Silva Taylor MD LAB BLOOD ORDERABLES F inal Result Performing Organization Address [facility] Phone Number HISTORICAL RESULTS * (ABNORMAL) Blood glucose, POC (02/12/2013 4:32 AM CDT) Glucose, POC, bld 51(L) 65 - 199 mg/dl HISTORICAL RESULTS Blood specimen (specimen) 02/12/2013 4:32 AM CDT Silva Taylor MD LAB BLOOD ORDERABLES F inal Result Performing Organization Address [facility] de Phone Number HISTORICAL RESULTS * Blood glucose, POC (02/12/2013 1:39 AM CDT) Glucose, POC, bld 101 65 - 199 mg/dl HISTORICAL RESULTS Blood specimen (specimen) 02/12/2013 1:39 AM CDT Silva Taylor MD LAB BLOOD ORDERABLES F inal Result Performing Organization Address [facility] de Phone Number HISTORICAL RESULTS * Blood glucose, POC (02/11/2013 7:59 PM CDT) Glucose, POC, bld 153 65 - 199 mg/dl HISTORICAL RESULTS Blood specimen (specimen) 02/11/2013 7:59 PM CDT Silva Taylor MD LAB BLOOD ORDERABLES F inal Result Performing Organization Address [facility] de Phone Number HISTORICAL RESULTS * (ABNORMAL) Blood glucose, POC (02/11/2013 3:08 PM CDT) Glucose, POC, bld 428(H) 65 - 199 mg/dl HISTORICAL RESULTS Gluc, com 1, bld RN Notified HISTORICAL RESULTS Blood specimen (specimen) 02/11/2013 3:08 PM CDT Silva Taylor MD LAB BLOOD ORDERABLES F inal Result Performing Organization Address [facility] de Phone Number HISTORICAL RESULTS * Blood ABO, Rh, indirect ab screen (02/11/2013 12:54 PM CDT) ABO, Rho(D) A Positive HISTORI RHODA RESULTS Ursula, indirect Negative HISTORICAL RESULTS Blood specimen (specimen) 02/11/2013 12:54 PM CDT Raman Lopez LAB BLOOD ORDERABLES Fin al Result Performing Organization Address [facility] de Phone Number HISTORICAL RESULTS * (ABNORMAL) Plasma comprehensive metabolic panel (02/11/2013 11:00 AM CDT) Sodium 136 135 - 145 mmol/L HISTORICAL RESULTS K, pl 4.3 3.3 - 4.9 mmol/L HISTORICAL RESULTS Chloride 96(L) 97 - 110 mmol/L HISTORICAL RESULTS CO2 36(H) 22 - 32 mmol/L HISTORICAL RESULTS A. gap 4 0 - 16 mmol/L HISTORICAL RESULTS Glucose 217(H) 65 - 199 mg/dl HISTORICAL RESULTS BUN 14 8 - 25 mg/dl HISTORICAL RESULTS Creatinine 0.98 0.70 - 1.30 mg/dl HISTORICAL RESULTS Calcium 9.1 8.6 - 10.3 mg/dl HISTORICAL RESULTS Protein, pl 5.8(L) 6.5 - 8.5 g/dl HISTORICAL RESULTS Alb 3.2(L) 3.6 - 5.0 g/dl HISTORICAL RESULTS Bilirubin 0.2(L) 0.3 - 1.1 mg/dl HISTORICAL RESULTS Alk phos 147(H) 38 - 126 Units/L HISTORICAL RESULTS AST 33 11 - 47 Units/L HISTORICAL RESULTS ALT 32 7 - 53 Units/L HISTORICAL RESULTS Plasma 02/11/2013 11:0 0 AM CDT Ni Agarwal LAB BLOOD ORDERABLES Final R [facility] Performing Organization Address City/[facility] Co de Phone Number HISTORICAL RESULTS * (ABNORMAL) Serum lactate dehydrogenase (LDH) (02/11/2013 11:00 AM CDT) Lactate dehydrogenase (LDH) 353(H) 100 - 250 Units/L HISTORICAL RESULTS Serum 02/11/2013 11:0 0 AM CDT Ni Agarwal LAB BLOOD ORDERABLES Final R esult HISTORICAL RESULTS * Mislabeled test (02/11/2013 11:00 AM CDT) Pathologist [facility] Mislabeled specimen Test requested: type and screen. Date/Time received: ??02/11/13 5675. Specimen type: ??pink top One Signature on Blood Bank Specimen Testing canceled HISTORICAL RESULTS No specimen 02/11/2013 11:0 0 AM CDT Ni Bansal Agarwal LAB BLOOD ORDERABLES Final R esult Performing Organization Address [facility] de Phone Number HISTORICAL RESULTS * Plasma phosphorus (02/11/2013 11:00 AM CDT) Phosphorus, pl 3.3 2.3 - 4.3 mg/dl HISTORICAL RESULTS Plasma 02/11/2013 11:0 0 AM CDT Ni Agarwal LAB BLOOD ORDERABLES Final R [facility] Performing Organization Address [facility] de Phone Number HISTORICAL RESULTS * Serum uric acid (02/11/2013 11:00 AM CDT) Uric acid 3.8 3.0 - 8.0 mg/dl HISTORICAL RESULTS Serum 02/11/2013 11:0 0 AM CDT Ni D Agarwal LAB BLOOD ORDERABLES Final R [facility] Performing Organization Address [facility] de Phone Number HISTORICAL RESULTS * Serum magnesium (02/11/2013 11:00 AM CDT) Magnesium 1.8 1.4 - 2.5 mg/dl HISTORICAL RESULTS Serum 02/11/2013 11:0 0 AM CDT Ni D Agarwal LAB BLOOD ORDERABLES Final R esult Performing Organization Address [facility] de Phone Number HISTORICAL RESULTS * (ABNORMAL) Blood cell count (CBC) (02/11/2013 11:00 AM CDT) WBC 10.6(H) 3.8 - 9.8 K/cumm HISTORICAL RESULTS RBC 2.32(L) 4.50 - 5.70 M/cumm HISTORICAL RESULTS Hgb 8.3(L) 13.8 - 17.2 g/dl HISTORICAL RESULTS Hct 25.0(L) 40.7 - 50.3 % HISTORICAL RESULTS MCV 107.9(H) 80.0 - 97.6 fl HISTORICAL RESULTS MCH 36.0(H) 26.7 - 33.7 pg HISTORICAL RESULTS MCHC 33.3 32.7 - 35.5 g/dl HISTORICAL RESULTS Rdw 14.3 11.8 - 14.6 % HISTORICAL RESULTS Platelets 145 140 - 440 K/cumm HISTORICAL RESULTS MPV 9.6 6.8 - 10.4 fl HISTORICAL RESULTS Blood specimen (specimen) 02/11/2013 11:00 AM CDT Ni Rosswin LAB BLOOD ORDERABLES Final R esult HISTORICAL RESULTS * (ABNORMAL) Blood cell morphologic exam (02/11/2013 11:00 AM CDT) WBC counted 100 # of cells HISTORI RHODA RESULTS Neutrophils 73 44 - 80 % HISTORIC AL RESULTS Lymphocytes 16 13 - 44 % HISTORIC AL RESULTS Monos 9(H) 2 - 8 % HISTORICAL RESULTS Eosinophils 1 0 - 6 % HISTORIC AL RESULTS Neutrophilic myelocytes 1(H) 0 - 0 % HISTORICAL RESULTS NRBC 3(H) 0 - 0 #/100 WBC HISTORICAL RESULTS Platelet estimate Adequate Adequate HISTORICAL RESULTS Macrocytosis 8-15/HPF(A) None Seen HISTO RICAL RESULTS Microcytosis 3-7/HPF(A) None Seen HISTOR ICAL RESULTS Ovalocytes 3-7/HPF(A) None Seen HISTORIC AL RESULTS Polychromasia 3-7/HPF(A) None Seen HISTO RICAL RESULTS Blood specimen (specimen) 02/11/2013 11:00 AM CDT Ni Rosswin LAB BLOOD ORDERABLES Final R [facility] HISTORICAL RESULTS * (ABNORMAL) Blood glucose, POC (02/11/2013 8:08 AM CDT) Glucose, POC, bld 218(H) 65 - 199 mg/dl HISTORICAL RESULTS Blood specimen (specimen) 02/11/2013 8:08 AM CDT Silva Taylor MD LAB BLOOD ORDERABLES F inal Result Performing Organization Address [facility] de Phone Number HISTORICAL RESULTS * (ABNORMAL) Blood glucose, POC (02/11/2013 2:32 AM CDT) [facility] Glucose, POC, bld 205(H) 65 - 199 mg/dl HISTORICAL RESULTS Blood specimen (specimen) 02/11/2013 2:32 AM CDT Silva Taylor MD LAB BLOOD ORDERABLES F inal Result Performing Organization Address [facility] de Phone Number HISTORICAL RESULTS * (ABNORMAL) Blood glucose, POC (02/10/2013 7:29 PM CDT) [facility] Glucose, POC, bld 258(H) 65 - 199 mg/dl HISTORICAL RESULTS Blood specimen (specimen) 02/10/2013 7:29 PM CDT Silva Taylor MD LAB BLOOD ORDERABLES F inal Result Performing Organization Address [facility] de Phone Number HISTORICAL RESULTS * (ABNORMAL) Blood glucose, POC (02/10/2013 2:39 PM CDT) [facility] Glucose, POC, bld >450(C) 65 - 199 mg/dl HISTORICAL RESULTS Blood specimen (specimen) 02/10/2013 2:39 PM CDT Silva Taylor MD LAB BLOOD ORDERABLES F inal Result Performing Organization Address [facility] de Phone Number HISTORICAL RESULTS * (ABNORMAL) Plasma basic metabolic panel (02/10/2013 11:00 AM CDT) [facility] Sodium 139 135 - 145 mmol/L HISTORICAL RESULTS K, pl 4.7 3.3 - 4.9 mmol/L HISTORICAL RESULTS Chloride 99 97 - 110 mmol/L HISTORICAL RESULTS CO2 36(H) 22 - 32 mmol/L HISTORICAL RESULTS A. gap 4 0 - 16 mmol/L HISTORICAL RESULTS Glucose 166 65 - 199 mg/dl HISTORICAL RESULTS BUN 14 8 - 25 mg/dl HISTORICAL RESULTS Creatinine 0.97 0.70 - 1.30 mg/dl HISTORICAL RESULTS Calcium 9.6 8.6 - 10.3 mg/dl HISTORICAL RESULTS Plasma 02/10/2013 11:0 0 AM CDT Ni Agarwal LAB BLOOD ORDERABLES Final R [facility] Performing Organization Address [facility] de Phone Number HISTORICAL RESULTS * Plasma phosphorus (02/10/2013 11:00 AM CDT) Phosphorus, pl 2.9 2.3 - 4.3 mg/dl HISTORICAL RESULTS Plasma 02/10/2013 11:0 0 AM CDT Ni Agarwal LAB BLOOD ORDERABLES Final R [facility] Performing Organization Address [facility] de Phone Number HISTORICAL RESULTS * Serum magnesium (02/10/2013 11:00 AM CDT) Magnesium 1.5 1.4 - 2.5 mg/dl HISTORICAL RESULTS Serum 02/10/2013 11:0 0 AM CDT Ni Agarwal LAB BLOOD ORDERABLES Final R [facility] Performing Organization Address [facility] de Phone Number HISTORICAL RESULTS * (ABNORMAL) Blood cell count (CBC) (02/10/2013 11:00 AM CDT) WBC 17.2(H) 3.8 - 9.8 K/cumm HISTORICAL RESULTS RBC 2.51(L) 4.50 - 5.70 M/cumm HISTORICAL RESULTS Hgb 9.2(L) 13.8 - 17.2 g/dl HISTORICAL RESULTS Hct 27.1(L) 40.7 - 50.3 % HISTORICAL RESULTS MCV 108.0(H) 80.0 - 97.6 fl HISTORICAL RESULTS MCH 36.8(H) 26.7 - 33.7 pg HISTORICAL RESULTS MCHC 34.1 32.7 - 35.5 g/dl HISTORICAL RESULTS Rdw 13.9 11.8 - 14.6 % HISTORICAL RESULTS Platelets 152 140 - 440 K/cumm HISTORICAL RESULTS MPV 9.4 6.8 - 10.4 fl HISTORICAL RESULTS Blood specimen (specimen) 02/10/2013 11:00 AM CDT Ni Agarwal LAB BLOOD ORDERABLES Final R esult HISTORICAL RESULTS * (ABNORMAL) Blood cell morphologic exam (02/10/2013 11:00 AM CDT) WBC counted 100 # of cells HISTORI RHODA RESULTS Neutrophils 68 44 - 80 % HISTORIC AL RESULTS Lymphocytes 16 13 - 44 % HISTORIC AL RESULTS Monos 10(H) 2 - 8 % HISTORICAL RESULTS Eosinophils 0 0 - 6 % HISTORIC AL RESULTS Basophils 0 0 - 3 % HISTORICAL RESULTS Neutrophilic bands 4 0 - 6 % HISTORICAL RESULTS Neutrophilic metamyelocytes 0 0 - 0 % HISTORICAL RESULTS Neutrophilic myelocytes 2(H) 0 - 0 % HISTORICAL RESULTS NRBC 3(H) 0 - 0 #/100 WBC HISTORICAL RESULTS Large platelets 1(H) 0 - 0 /hpf HIS TORICAL RESULTS Platelet estimate Adequate Adequate HI STORICAL RESULTS Platelet morphology Few Enlarged(A) HISTORICAL RESULTS Anisocytosis Trace None Seen HISTORI RHODA RESULTS Macrocytosis 3-7/HPF(A) None Seen HISTOR ICAL RESULTS Microcytosis 3-7/HPF(A) None Seen HISTOR ICAL RESULTS Ovalocytes 3-7/HPF(A) None Seen HISTORIC AL RESULTS Polychromasia 3-7/HPF(A) None Seen HISTO RICAL RESULTS Poikilocytosis Trace(A) None Seen HISTO RICAL RESULTS Blood specimen (specimen) 02/10/2013 11:00 AM CDT Ni Agarwal LAB BLOOD ORDERABLES Final R esult HISTORICAL RESULTS * Blood glucose, POC (02/10/2013 9:59 AM CDT) Glucose, POC, bld 140 65 - 199 mg/dl HISTORICAL RESULTS Blood specimen (specimen) 02/10/2013 9:59 AM CDT Silva Taylor MD LAB BLOOD ORDERABLES F inal Result Performing Organization Address [facility] Phone Number HISTORICAL RESULTS * Blood glucose, POC (02/10/2013 8:08 AM CDT) Glucose, POC, bld 68 65 - 199 mg/dl HISTORICAL RESULTS Gluc, com 1, bld RN Notified HISTORICAL RESULTS Blood specimen (specimen) 02/10/2013 8:08 AM CDT Silva Taylor MD LAB BLOOD ORDERABLES F inal Result Performing Organization Address [facility] Phone Number HISTORICAL RESULTS * (ABNORMAL) Blood glucose, POC (02/10/2013 1:47 AM CDT) Glucose, POC, bld 350(H) 65 - 199 mg/dl HISTORICAL RESULTS Blood specimen (specimen) 02/10/2013 1:47 AM CDT Silva Taylor MD LAB BLOOD ORDERABLES F inal Result Performing Organization Address [facility] Phone Number HISTORICAL RESULTS * (ABNORMAL) Blood glucose, POC (02/09/2013 8:02 PM CDT) Glucose, POC, bld 326(H) 65 - 199 mg/dl HISTORICAL RESULTS Blood specimen (specimen) 02/09/2013 8:02 PM CDT Silva Taylor MD LAB BLOOD ORDERABLES F inal Result Performing Organization Address [facility] de Phone Number HISTORICAL RESULTS * (ABNORMAL) Blood glucose, POC (02/09/2013 2:07 PM CDT) Glucose, POC, bld 360(H) 65 - 199 mg/dl HISTORICAL RESULTS Blood specimen (specimen) 02/09/2013 2:07 PM CDT Silva Taylor MD LAB BLOOD ORDERABLES F inal Result Performing Organization Address City/[facility] Co de Phone Number HISTORICAL RESULTS * Blood tacrolimus (FK-506) drug level (02/09/2013 10:00 AM CDT) Tacrolimus 2.5 ng/ml HISTORICA L RESULTS Comment: Interpretive Data This test was developed using an analyte specific reagent. ??Its performance characteristics were determined by the [facility] in a manner consistent with CLIA requirements. This test has not been cleared or approved by the U.S. Food and Drug Administration. Current interpretive data was last revised on 2012. Blood specimen (specimen) 02/09/2013 10:00 AM CDT Raman Lopez LAB BLOOD ORDERABLES Fin al Result Performing Organization Address [facility] de Phone Number HISTORICAL RESULTS * (ABNORMAL) Plasma basic metabolic panel (02/09/2013 10:00 AM CDT) Sodium 139 135 - 145 mmol/L HISTORICAL RESULTS K, pl 4.6 3.3 - 4.9 mmol/L HISTORICAL RESULTS Chloride 99 97 - 110 mmol/L HISTORICAL RESULTS CO2 36(H) 22 - 32 mmol/L HISTORICAL RESULTS A. gap 4 0 - 16 mmol/L HISTORICAL RESULTS Glucose 280(H) 65 - 199 mg/dl HISTORICAL RESULTS BUN 14 8 - 25 mg/dl HISTORICAL RESULTS Creatinine 0.76 0.70 - 1.30 mg/dl HISTORICAL RESULTS Calcium 8.9 8.6 - 10.3 mg/dl HISTORICAL RESULTS Plasma 02/09/2013 10:0 0 AM CDT Ni Agarwal LAB BLOOD ORDERABLES Final R esult Performing Organization Address [facility] Co de Phone Number HISTORICAL RESULTS * (ABNORMAL) Plasma phosphorus (02/09/2013 10:00 AM CDT) Phosphorus, pl 1.9(L) 2.3 - 4.3 mg/dl HISTORICAL RESULTS Plasma 02/09/2013 10:0 0 AM CDT Ni Agarwal LAB BLOOD ORDERABLES Final R [facility] Performing Organization Address [facility] de Phone Number HISTORICAL RESULTS * Serum magnesium (02/09/2013 10:00 AM CDT) Magnesium 1.6 1.4 - 2.5 mg/dl HISTORICAL RESULTS Serum 02/09/2013 10:0 0 AM CDT Ni Agarwal LAB BLOOD ORDERABLES Final [facility] Performing Organization Address [facility] de Phone Number HISTORICAL RESULTS * (ABNORMAL) Blood cell count (CBC) (02/09/2013 10:00 AM CDT) WBC 10.8(H) 3.8 - 9.8 K/cumm HISTORICAL RESULTS RBC 2.28(L) 4.50 - 5.70 M/cumm HISTORICAL RESULTS Hgb 8.3(L) 13.8 - 17.2 g/dl HISTORICAL RESULTS Hct 24.6(L) 40.7 - 50.3 % HISTORICAL RESULTS MCV 108.2(H) 80.0 - 97.6 fl HISTORICAL RESULTS MCH 36.4(H) 26.7 - 33.7 pg HISTORICAL RESULTS MCHC 33.6 32.7 - 35.5 g/dl HISTORICAL RESULTS Rdw 13.7 11.8 - 14.6 % HISTORICAL RESULTS Platelets 133(L) 140 - 440 K/cumm HISTORICAL RESULTS MPV 9.5 6.8 - 10.4 fl HISTORICAL RESULTS Blood specimen (specimen) 02/09/2013 10:00 AM CDT Ni Agarwal LAB BLOOD ORDERABLES Final R [facility] Performing Organization Address [facility] de Phone Number HISTORICAL RESULTS * (ABNORMAL) Blood cell morphologic exam (02/09/2013 10:00 AM CDT) WBC counted 100 # of cells HISTORI RHODA RESULTS Neutrophils 69 44 - 80 % HISTORIC AL RESULTS Lymphocytes 26 13 - 44 % HISTORIC AL RESULTS Monos 3 2 - 8 % HISTORICAL RESULTS Eosinophils 1 0 - 6 % HISTORIC AL RESULTS Basophils 1 0 - 3 % HISTORICAL RESULTS NRBC 11(H) 0 - 0 #/100 WBC HISTORICAL RESULTS Platelet estimate Decreased (A) Adequate HISTORICAL RESULTS Platelet morphology Few Enlarged( A) HISTORICAL RESULTS Anisocytosis Moderate( A) None Seen HISTORICAL RESULTS Basophilic stippling 3-7/HPF(A ) None Seen HISTORICAL RESULTS [place] bodies Present(A ) None Seen HISTORICAL RESULTS Macrocytosis 8-15/HPF( A) None Seen HISTORICAL RESULTS Microcytosis 3-7/HPF(A ) None Seen HISTORICAL RESULTS Ovalocytes 3-7/HPF(A ) None Seen HISTORICAL RESULTS Pappenheimer bodies Present(A ) None Seen HISTORICAL RESULTS Polychromasia 3-7/HPF(A ) None Seen HISTORICAL RESULTS Poikilocytosis Trace(A) None Seen HISTO RICAL RESULTS Blood specimen (specimen) 02/09/2013 10:00 AM CDT Ni Agarwal LAB BLOOD ORDERABLES Final R esult Performing Organization Address [facility] Co de Phone Number HISTORICAL RESULTS * (ABNORMAL) Blood glucose, POC (02/09/2013 7:58 AM CDT) Glucose, POC, bld 251(H) 65 - 199 mg/dl HISTORICAL RESULTS Blood specimen (specimen) 02/09/2013 7:58 AM CDT Silva Taylor MD LAB BLOOD ORDERABLES F inal Result Performing Organization Address City/[facility] Co de Phone Number HISTORICAL RESULTS * (ABNORMAL) Blood glucose, POC (02/09/2013 2:27 AM CDT) Glucose, POC, bld 326(H) 65 - 199 mg/dl HISTORICAL RESULTS Blood specimen (specimen) 02/09/2013 2:27 AM CDT Silva Taylor MD LAB BLOOD ORDERABLES F inal Result Performing Organization Address [facility] de Phone Number HISTORICAL RESULTS * (ABNORMAL) Blood glucose, POC (02/08/2013 8:07 PM CDT) [facility] Glucose, POC, bld >450(C) 65 - 199 mg/dl HISTORICAL RESULTS Blood specimen (specimen) 02/08/2013 8:07 PM CDT Silva Taylor MD LAB BLOOD ORDERABLES F inal Result Performing Organization Address [facility] de Phone Number HISTORICAL RESULTS * (ABNORMAL) Blood glucose, POC (02/08/2013 2:28 PM CDT) [facility] Glucose, POC, bld >450(C) 65 - 199 mg/dl HISTORICAL RESULTS Gluc, com 1, bld Notified HISTORICAL RESULTS Gluc, com 2, bld RN Notified HISTORICAL RESULTS Blood specimen (specimen) 02/08/2013 2:28 PM CDT Sivla Taylor MD LAB BLOOD ORDERABLES F inal Result Performing Organization Address [facility] de Phone Number HISTORICAL RESULTS * (ABNORMAL) Plasma comprehensive metabolic panel (02/08/2013 11:00 AM CDT) [facility] Sodium 139 135 - 145 mmol/L HISTORICAL RESULTS K, pl 4.6 3.3 - 4.9 mmol/L HISTORICAL RESULTS Chloride 95(L) 97 - 110 mmol/L HISTORICAL RESULTS CO2 40(H) 22 - 32 mmol/L HISTORICAL RESULTS A. gap 5 0 - 16 mmol/L HISTORICAL RESULTS Glucose 315(H) 65 - 199 mg/dl HISTORICAL RESULTS BUN 15 8 - 25 mg/dl HISTORICAL RESULTS Creatinine 0.88 0.70 - 1.30 mg/dl HISTORICAL RESULTS Calcium 9.2 8.6 - 10.3 mg/dl HISTORICAL RESULTS Protein, pl 5.9(L) 6.5 - 8.5 g/dl HISTORICAL RESULTS Alb 3.0(L) 3.6 - 5.0 g/dl HISTORICAL RESULTS Bilirubin 0.3 0.3 - 1.1 mg/dl HISTORICAL RESULTS Alk phos 155(H) 38 - 126 Units/L HISTORICAL RESULTS AST 29 11 - 47 Units/L HISTORICAL RESULTS ALT 26 7 - 53 Units/L HISTORICAL RESULTS Plasma 02/08/2013 11:0 0 AM CDT Result [facility] Ni Agarwal LAB BLOOD ORDERABLES Final R [facility] Performing Organization Address [facility] de Phone Number HISTORICAL RESULTS * (ABNORMAL) Serum lactate dehydrogenase (LDH) (02/08/2013 11:00 AM CDT) Lactate dehydrogenase (LDH) 371(H) 100 - 250 Units/L HISTORICAL RESULTS Serum 02/08/2013 11:0 0 AM CDT Result [facility] Ni Agarwal LAB BLOOD ORDERABLES Final R [facility] Performing Organization Address [facility] Phone Number HISTORICAL RESULTS * Plasma partial thromboplastin time (PTT) (02/08/2013 11:00 AM CDT) APTT 30.9 25.0 - 37.0 seconds HISTORICAL RESULTS Comment: Interpretive Data Therapeutic heparin range:60.0 - 94.0 sec based on correlation with therapeutic heparin activity range of 0.3 -0.7 Units/mL. Current interpretive data was last revised on 2011. Plasma 02/08/2013 11:0 0 AM CDT Result [facility] Ni Agarwal LAB BLOOD ORDERABLES Final R [facility] Performing Organization Address [facility] Phone Number HISTORICAL RESULTS * (ABNORMAL) Plasma phosphorus (02/08/2013 11:00 AM CDT) Phosphorus, pl 1.5(L) 2.3 - 4.3 mg/dl HISTORICAL RESULTS Plasma 02/08/2013 11:0 0 AM CDT Result [facility] Ni Agarwal LAB BLOOD ORDERABLES Final R [facility] Performing Organization Address [facility] de Phone Number HISTORICAL RESULTS * Plasma prothrombin time (PT) (02/08/2013 11:00 AM CDT) Prothrombin time (PT) 9.5 9.0 - 12.0 seconds HISTORICAL RESULTS INR 0.93 0.90 - 1.20 HISTORIC AL RESULTS Comment: Interpretive Data Inpatient therapeutic ranges* Atrial fibrillation ?2.0-3.0 INR Venous thrombo-embolism ?2.0-3.0 INR Bioprosthetic heart valve ?* Mechanical heart valve, bileaflet or tilting disk,aortic position ? 2.0-3.0 INR All other,or bileaflet or tilting disk, in mitral position ? 2.5-3.5 INR *See the pharmacy resource directory (PHRED) for an updated copy of the Tool Book at [email or web address] Current Interpretive Data was last revised 2012. Plasma 02/08/2013 11:0 0 AM CDT Ni Agarwal LAB BLOOD ORDERABLES [facility] Performing Organization Address [facility] de Phone Number HISTORICAL RESULTS * Serum uric acid (02/08/2013 11:00 AM CDT) Uric acid 3.5 3.0 - 8.0 mg/dl HISTORICAL RESULTS Serum 02/08/2013 11:0 0 AM CDT Ni Agarwal LAB BLOOD ORDERABLES Final R [facility] Performing Organization Address [facility] Co de Phone Number HISTORICAL RESULTS * Serum magnesium (02/08/2013 11:00 AM CDT) Magnesium 2.2 1.4 - 2.5 mg/dl HISTORICAL RESULTS Serum 02/08/2013 11:0 0 AM CDT Ni Agarwal LAB BLOOD ORDERABLES Final R esult Performing Organization Address [facility] de Phone Number HISTORICAL RESULTS * (ABNORMAL) Blood cell count (CBC) (02/08/2013 11:00 AM CDT) WBC 12.2(H) 3.8 - 9.8 K/cumm HISTORICAL RESULTS RBC 2.68(L) 4.50 - 5.70 M/cumm HISTORICAL RESULTS Hgb 9.5(L) 13.8 - 17.2 g/dl HISTORICAL RESULTS Hct 28.7(L) 40.7 - 50.3 % HISTORICAL RESULTS MCV 107.1(H) 80.0 - 97.6 fl HISTORICAL RESULTS MCH 35.6(H) 26.7 - 33.7 pg HISTORICAL RESULTS MCHC 33.2 32.7 - 35.5 g/dl HISTORICAL RESULTS Rdw 13.7 11.8 - 14.6 % HISTORICAL RESULTS Platelets 139(L) 140 - 440 K/cumm HISTORICAL RESULTS MPV 10.1 6.8 - 10.4 fl HISTORICAL RESULTS Blood specimen (specimen) 02/08/2013 11:00 AM CDT Ni Agarwal LAB BLOOD ORDERABLES Final R esult Performing Organization Address [facility] de Phone Number HISTORICAL RESULTS * Blood ABO, Rh, indirect ab screen (02/08/2013 11:00 AM CDT) Ursula, indirect Negative HISTORICAL RESULTS ABO, Rho(D) A Positive HISTORI RHODA RESULTS Blood specimen (specimen) 02/08/2013 11:00 AM CDT Ni Agarwal LAB BLOOD ORDERABLES Final R esult Performing Organization Address [facility] Co de Phone Number HISTORICAL RESULTS * (ABNORMAL) Blood cell morphologic exam (02/08/2013 11:00 AM CDT) WBC counted 100 # of cells HISTORI RHODA RESULTS Neutrophils 64 44 - 80 % HISTORIC AL RESULTS Lymphocytes 20 13 - 44 % HISTORIC AL RESULTS Monos 11(H) 2 - 8 % HISTORICAL RESULTS Eosinophils 2 0 - 6 % HISTORIC AL RESULTS Neutrophilic bands 3 0 - 6 % HISTORICAL RESULTS NRBC 3(H) 0 - 0 #/100 WBC HISTORICAL RESULTS Large platelets 3(H) 0 - 0 /hpf HIS TORICAL RESULTS Platelet estimate Decreased (A) Adequate HISTORICAL RESULTS Anisocytosis Moderate( A) None Seen HISTORICAL RESULTS Macrocytosis 8-15/HPF( A) None Seen HISTORICAL RESULTS Blood specimen (specimen) 02/08/2013 11:00 AM CDT Ni Agarwal LAB BLOOD ORDERABLES Final R esult Performing Organization Address [facility] Co de Phone Number HISTORICAL RESULTS * (ABNORMAL) Blood glucose, POC (02/08/2013 7:51 AM CDT) Glucose, POC, bld 273(H) 65 - 199 mg/dl HISTORICAL RESULTS Gluc, com 1, bld RN Notified HISTORICAL RESULTS Blood specimen (specimen) 02/08/2013 7:51 AM CDT Silva Taylor MD LAB BLOOD ORDERABLES F inal Result Performing Organization Address [facility] de Phone Number HISTORICAL RESULTS * (ABNORMAL) Blood glucose, POC (02/08/2013 3:23 AM CDT) Glucose, POC, bld 422(H) 65 - 199 mg/dl HISTORICAL RESULTS Blood specimen (specimen) 02/08/2013 3:23 AM CDT Silva Taylor MD LAB BLOOD ORDERABLES F inal Result Performing Organization Address [facility] Co de Phone Number HISTORICAL RESULTS * (ABNORMAL) Blood glucose, POC (02/07/2013 7:45 PM CDT) Glucose, POC, bld 383(H) 65 - 199 mg/dl HISTORICAL RESULTS Blood specimen (specimen) 02/07/2013 7:45 PM CDT Silva Taylor MD LAB BLOOD ORDERABLES F inal Result Performing Organization Address [facility] de Phone Number HISTORICAL RESULTS * (ABNORMAL) Plasma basic metabolic panel (02/07/2013 5:00 PM CDT) Sodium 139 135 - 145 mmol/L HISTORICAL RESULTS K, pl 4.9 3.3 - 4.9 mmol/L HISTORICAL RESULTS Chloride 95(L) 97 - 110 mmol/L HISTORICAL RESULTS CO2 41(H) 22 - 32 mmol/L HISTORICAL RESULTS A. gap 3 0 - 16 mmol/L HISTORICAL RESULTS Glucose 272(H) 65 - 199 mg/dl HISTORICAL RESULTS BUN 17 8 - 25 mg/dl HISTORICAL RESULTS Creatinine 0.98 0.70 - 1.30 mg/dl HISTORICAL RESULTS Calcium 8.9 8.6 - 10.3 mg/dl HISTORICAL RESULTS Plasma 02/07/2013 5:00 PM CDT Ni Agarwal LAB BLOOD ORDERABLES Final R esult Performing Organization Address [facility] de Phone Number HISTORICAL RESULTS * (ABNORMAL) Plasma phosphorus (02/07/2013 5:00 PM CDT) Phosphorus, pl 2.2(L) 2.3 - 4.3 mg/dl HISTORICAL RESULTS Plasma 02/07/2013 5:00 PM CDT Ni Agarwal LAB BLOOD ORDERABLES Final R esult Performing Organization Address [facility] de Phone Number HISTORICAL RESULTS * Serum magnesium (02/07/2013 5:00 PM CDT) Magnesium 1.5 1.4 - 2.5 mg/dl HISTORICAL RESULTS Serum 02/07/2013 5:00 PM CDT Ni Agarwal LAB BLOOD ORDERABLES Final R esult Performing Organization Address [facility] de Phone Number HISTORICAL RESULTS * (ABNORMAL) Blood cell count (CBC) (02/07/2013 5:00 PM CDT) WBC 11.6(H) 3.8 - 9.8 K/cumm HISTORICAL RESULTS RBC 2.52(L) 4.50 - 5.70 M/cumm HISTORICAL RESULTS Hgb 9.2(L) 13.8 - 17.2 g/dl HISTORICAL RESULTS Hct 27.3(L) 40.7 - 50.3 % HISTORICAL RESULTS MCV 108.2(H) 80.0 - 97.6 fl HISTORICAL RESULTS MCH 36.4(H) 26.7 - 33.7 pg HISTORICAL RESULTS MCHC 33.6 32.7 - 35.5 g/dl HISTORICAL RESULTS Rdw 13.7 11.8 - 14.6 % HISTORICAL RESULTS Platelets 137(L) 140 - 440 K/cumm HISTORICAL RESULTS MPV 9.4 6.8 - 10.4 fl HISTORICAL RESULTS Blood specimen (specimen) 02/07/2013 5:00 PM CDT Ni Agarwal LAB BLOOD ORDERABLES Final R [email or web address] Performing Organization Address [facility] de Phone Number HISTORICAL RESULTS * (ABNORMAL) Blood cell morphologic exam (02/07/2013 5:00 PM CDT) WBC counted 100 # of cells HISTORI RHODA RESULTS Neutrophils 79 44 - 80 % HISTORIC AL RESULTS Lymphocytes 12(L) 13 - 44 % HISTORIC AL RESULTS Monos 7 2 - 8 % HISTORICAL RESULTS Eosinophils 1 0 - 6 % HISTORIC AL RESULTS Basophils 1 0 - 3 % HISTORICAL RESULTS NRBC 2(H) 0 - 0 #/100 WBC HISTORICAL RESULTS Platelet estimate Decreased (A) Adequate HISTORICAL RESULTS Macrocytosis 8-15/HPF( A) None Seen HISTORICAL RESULTS Microcytosis 3-7/HPF(A ) None Seen HISTORICAL RESULTS Polychromasia 3-7/HPF(A ) None Seen HISTORICAL RESULTS Blood specimen (specimen) 02/07/2013 5:00 PM CDT Ni Agarwal LAB BLOOD ORDERABLES Final R esult HISTORICAL RESULTS * (ABNORMAL) Blood glucose, POC (02/07/2013 1:58 PM CDT) Glucose, POC, bld 344(H) 65 - 199 mg/dl HISTORICAL RESULTS Gluc, com 1, bld RN Notified HISTORICAL RESULTS Gluc, com 2, bld Venous HISTORICAL RESULTS Blood specimen (specimen) 02/07/2013 1:58 PM CDT Silva Taylor MD LAB BLOOD ORDERABLES F inal Result HISTORICAL RESULTS * XR Chest 1 Vw (02/07/2013 12:34 PM CDT) Anatomical Region Laterality Modality Body, Chest N/A Radiographic Tiffany ging 02/07/2013 12:3 4 PM CDT Narrative 02/07/2013 10:27 PM CDT DAYSI EDMONDS M.D. FINAL REPORT ACC# ??Date Time ??Exam [id number] Feb 07, 2013 12:34:00 [id number] Chest 1 view Frontal EXAMINATION: ?? CHEST, FRONTAL VIEW IMPRESSION: ?? There is a right-sided peripheral inserted central catheter in place with the distal tip in the superior vena cava. A nasogastric tube is in place, the distal tip projecting below the diaphragm. There is a small left pleural effusion, there is bibasilar atelectasis. The lungs are hyperinflated. An opacity is seen in the right infrahilar region, probably represents additional atelectasis or residual infiltrate. The overall aeration of the lungs has improved when compared to the prior examination of 01/28/2013. Requested By: SILVA TAYLOR ??Toño Dictated By: ?? DAYSI EDMONDS M.D. ??on Feb 07 2013 10:27P This document has been electronically signed by: DAYSI EDMONDS M.D. on Feb 07 2013 10:27P Procedure Note Provider, MD Shmuel - 03/22/2017 DAYSI EDMONDS M.D. FINAL REPORT [facility]# Date Time Exam [id number] Feb 07, 2013 12:34:00 [id number] Chest 1 view Frontal EXAMINATION: CHEST, FRONTAL VIEW IMPRESSION: There is a right-sided peripheral inserted central catheter in place with the distal tip in the superior vena cava. A nasogastric tube is in place, the distal tip projecting below the diaphragm. There is a small left pleural effusion, there is bibasilar atelectasis. The lungs are hyperinflated. An opacity is seen in the right infrahilar region, probably represents additional atelectasis or residual infiltrate. The overall aeration of the lungs has improved when compared to the prior examination of 01/28/2013. Requested By: SILVA TAYLOR M.D. Dictated By: DAYSI EDMONDS M.D. on Feb 07 2013 10:27P This document has been electronically signed by: DAYSI EDMONDS M.D. on Feb 07 2013 10:27P Historical Provider IMG XR PROCEDURES Final R esult * (ABNORMAL) Blood glucose, POC (02/07/2013 11:32 AM CDT) [facility] Glucose, POC, bld >450(C) 65 - 199 mg/dl HISTORICAL RESULTS Gluc, com 1, eliseo RN Notified HISTORICAL RESULTS Gluc, com 2, bld Venous HISTORICAL RESULTS Blood specimen (specimen) 02/07/2013 11:32 AM CDT Silva Taylor MD LAB BLOOD ORDERABLES F inal Result HISTORICAL RESULTS * (ABNORMAL) Blood glucose, POC (02/07/2013 7:40 AM CDT) Glucose, POC, bld 222(H) 65 - 199 mg/dl HISTORICAL RESULTS Gluc, com 1, bld RN Notified HISTORICAL RESULTS Gluc, com 2, bld Venous HISTORICAL RESULTS Blood specimen (specimen) 02/07/2013 7:40 AM CDT Silva Taylor MD LAB BLOOD ORDERABLES F inal Result Performing Organization Address [facility] de Phone Number HISTORICAL RESULTS * (ABNORMAL) Blood glucose, POC (02/07/2013 1:53 AM CDT) Glucose, POC, bld 302(H) 65 - 199 mg/dl HISTORICAL RESULTS Blood specimen (specimen) 02/07/2013 1:53 AM CDT Silva Taylor MD LAB BLOOD ORDERABLES F inal Result Performing Organization Address [facility] Phone Number HISTORICAL RESULTS * (ABNORMAL) Blood glucose, POC (02/06/2013 7:35 PM CDT) Pathologist [facility] Glucose, POC, bld 340(H) 65 - 199 mg/dl HISTORICAL RESULTS Blood specimen (specimen) 02/06/2013 7:35 PM CDT Silva Taylor MD LAB BLOOD ORDERABLES F inal Result Performing Organization Address [facility] de Phone Number HISTORICAL RESULTS * (ABNORMAL) Blood glucose, POC (02/06/2013 4:43 PM CDT) Pathologist [facility] Glucose, POC, bld 403(H) 65 - 199 mg/dl HISTORICAL RESULTS Gluc, com 1, bld RN Notified HISTORICAL RESULTS Gluc, com 2, bld Venous HISTORICAL RESULTS Blood specimen (specimen) 02/06/2013 4:43 PM CDT Silva Taylor MD LAB BLOOD ORDERABLES F inal Result Performing Organization Address [facility] de Phone Number HISTORICAL RESULTS * ABDOMINAL RADIOGRAPHY, FRONTAL (AP) (02/06/2013 2:39 PM CDT) Anatomical Region Laterality Modality N/A Radiographic Tiffany ging 02/06/2013 2:39 PM CDT Narrative 02/06/2013 3:51 PM CDT CIERA VELA M.D. JASON JONES M.D. FINAL REPORT The radiology attending physician has personally reviewed this study, and has reviewed and/or edited this written report and agrees with it. ACC# ??Date Time ??Exam [id number] Feb 06, 2013 14:39:00 [id number] Abdomen single view AP EXAMINATION: ?? 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 Single supine view of the abdomen is compared to 01/31/2013. Feeding tube loops in the gastric fundus and extends distally with the tip at the third/fourth portion of the duodenum. Small amount of contrast is seen in the colon, compatible with recent feeding tube placement. An IVC filter is positioned at the level of L3. Small left pleural effusion and left retrocardiac atelectasis, stable. Requested By: DERRICK DOMINGUEZ M.D. Dictated By: ?? JASON JONES M.D. ??on Feb 06 2013 ??3:36P This document has been electronically signed by: CIERA VELA M.D. on Feb 06 2013 ??3:51P Procedure Note Provider, MD Shmuel - 03/22/2017 Toño MIDDLETON M.D. FINAL REPORT The radiology attending physician has personally reviewed this study, and has reviewed and/or edited this written report and agrees with it. ACC# Date Time Exam [id number] Feb 06, 2013 14:39:00 [id number] Abdomen single view AP EXAMINATION: Abdomen single view HISTORY: AML, pancreatitis, tube placement IMPRESSION: Single supine view of the abdomen is compared to01/31/2013. Feeding tube loops in the gastric fundus and extends distally with the tip at the third/fourth portion of the duodenum. Small amount of contrast is seen in the colon, compatible with recent feeding tube placement. An IVC filter is positioned at the level of L3. Small left pleural effusion and left retrocardiac atelectasis, stable. Requested By: DERRICK DOMINGUEZ M.D. Dictated By: JASON JONES M.D. on Feb 06 2013 3:36P This document has been electronically signed by: CIERA VELA M.D. on Feb 06 2013 3:51P Historical Provider MD TAPIA XR PROCEDURES Final R esult * (ABNORMAL) Blood glucose, POC (02/06/2013 11:59 AM CDT) Glucose, POC, bld 242(H) 65 - 199 mg/dl HISTORICAL RESULTS Gluc, com 1, bld RN Notified HISTORICAL RESULTS Gluc, com 2, bld Venous HISTORICAL RESULTS Blood specimen (specimen) 02/06/2013 11:59 AM CDT Silva Taylor MD LAB BLOOD ORDERABLES F inal Result Performing Organization Address [facility] de Phone Number HISTORICAL RESULTS * Blood tacrolimus (FK-506), trough drug level (02/06/2013 9:00 AM CDT) Tacrolimus, trough 2.2 ng/ml H ISTORICAL RESULTS Comment: Interpretive Data This test was developed using an analyte specific reagent. ??Its performance characteristics were determined by the [facility] in a manner consistent with CLIA requirements. This test has not been cleared or approved by the U.S. Food and Drug Administration. Current interpretive data was last revised on 2012. Blood specimen (specimen) 02/06/2013 9:00 AM CDT Derrick Dominguez MD LAB BLOOD ORDERABLES Pilar l Result Performing Organization Address [facility] Co de Phone Number HISTORICAL RESULTS * (ABNORMAL) Plasma basic metabolic panel (02/06/2013 9:00 AM CDT) Sodium 138 135 - 145 mmol/L HISTORICAL RESULTS K, pl 4.5 3.3 - 4.9 mmol/L HISTORICAL RESULTS Chloride 94(L) 97 - 110 mmol/L HISTORICAL RESULTS CO2 38(H) 22 - 32 mmol/L HISTORICAL RESULTS A. gap 6 0 - 16 mmol/L HISTORICAL RESULTS Glucose 171 65 - 199 mg/dl HISTORICAL RESULTS BUN 12 8 - 25 mg/dl HISTORICAL RESULTS Creatinine 0.88 0.70 - 1.30 mg/dl HISTORICAL RESULTS Calcium 8.4(L) 8.6 - 10.3 mg/dl HISTORICAL RESULTS Plasma 02/06/2013 9:00 AM CDT Derrick Dominguez MD LAB BLOOD ORDERABLES Pilar l Result Performing Organization Address [facility] Phone Number HISTORICAL RESULTS * (ABNORMAL) Plasma phosphorus (02/06/2013 9:00 AM CDT) Phosphorus, pl 1.8(L) 2.3 - 4.3 mg/dl HISTORICAL RESULTS Plasma 02/06/2013 9:00 AM CDT Derrick Dominguez MD LAB BLOOD ORDERABLES Pilar l Result Performing Organization Address [facility] Phone Number HISTORICAL RESULTS * Serum magnesium (02/06/2013 9:00 AM CDT) Magnesium 1.6 1.4 - 2.5 mg/dl HISTORICAL RESULTS Serum 02/06/2013 9:00 AM CDT Derrick Dominguez MD LAB BLOOD ORDERABLES Pilar l Result Performing Organization Address [facility] de Phone Number HISTORICAL RESULTS * (ABNORMAL) Blood cell count (CBC) (02/06/2013 9:00 AM CDT) WBC 8.2 3.8 - 9.8 K/cumm HISTORICAL RESULTS RBC 2.57(L) 4.50 - 5.70 M/cumm HISTORICAL RESULTS Hgb 9.4(L) 13.8 - 17.2 g/dl HISTORICAL RESULTS Hct 27.6(L) 40.7 - 50.3 % HISTORICAL RESULTS MCV 107.5(H) 80.0 - 97.6 fl HISTORICAL RESULTS MCH 36.4(H) 26.7 - 33.7 pg HISTORICAL RESULTS MCHC 33.9 32.7 - 35.5 g/dl HISTORICAL RESULTS Rdw 13.8 11.8 - 14.6 % HISTORICAL RESULTS Platelets 106(L) 140 - 440 K/cumm HISTORICAL RESULTS MPV 10.3 6.8 - 10.4 fl HISTORICAL RESULTS Blood specimen (specimen) 02/06/2013 9:00 AM CDT Derrick Dominguez MD LAB BLOOD ORDERABLES Pilar l Result Performing Organization Address [facility] de Phone Number HISTORICAL RESULTS * (ABNORMAL) Blood cell morphologic exam (02/06/2013 9:00 AM CDT) WBC counted 100 # of cells HISTORI RHODA RESULTS Neutrophils 72 44 - 80 % HISTORIC AL RESULTS Lymphocytes 17 13 - 44 % HISTORIC AL RESULTS Monos 10(H) 2 - 8 % HISTORICAL RESULTS Neutrophilic bands 1 0 - 6 % HISTORICAL RESULTS NRBC 2(H) 0 - 0 #/100 WBC HISTORICAL RESULTS Large platelets 2(H) 0 - 0 /hpf HIS TORICAL RESULTS Platelet estimate Decreased (A) Adequate HISTORICAL RESULTS [place] bodies Present(A ) None Seen HISTORICAL RESULTS Macrocytosis 3-7/HPF(A ) None Seen HISTORICAL RESULTS Microcytosis 3-7/HPF(A ) None Seen HISTORICAL RESULTS Polychromasia 3-7/HPF(A ) None Seen HISTORICAL RESULTS Blood specimen (specimen) 02/06/2013 9:00 AM CDT Derrick Dominguez MD LAB BLOOD ORDERABLES Pilar l Result Performing Organization Address [facility] de Phone Number HISTORICAL RESULTS * (ABNORMAL) Blood glucose, POC (02/06/2013 7:36 AM CDT) Glucose, POC, bld 283(H) 65 - 199 mg/dl HISTORICAL RESULTS Gluc, com 1, bld RN Notified HISTORICAL RESULTS Gluc, com 2, bld Venous HISTORICAL RESULTS Blood specimen (specimen) 02/06/2013 7:36 AM CDT Silva Taylor MD LAB BLOOD ORDERABLES F inal Result Performing Organization Address [facility] de Phone Number HISTORICAL RESULTS * (ABNORMAL) Blood glucose, POC (02/06/2013 6:03 AM CDT) Glucose, POC, bld 350(H) 65 - 199 mg/dl HISTORICAL RESULTS Blood specimen (specimen) 02/06/2013 6:03 AM CDT Silva Taylor MD LAB BLOOD ORDERABLES F inal Result Performing Organization Address [facility] de Phone Number HISTORICAL RESULTS * (ABNORMAL) Blood glucose, POC (02/05/2013 11:41 PM CDT) Pathologist [facility] Glucose, POC, bld 358(H) 65 - 199 mg/dl HISTORICAL RESULTS Blood specimen (specimen) 02/05/2013 11:41 PM CDT Silva Taylor MD LAB BLOOD ORDERABLES F inal Result Performing Organization Address [facility] de Phone Number HISTORICAL RESULTS * (ABNORMAL) Blood glucose, POC (02/05/2013 6:12 PM CDT) Pathologist [facility] Glucose, POC, bld >450(C) 65 - 199 mg/dl HISTORICAL RESULTS Gluc, com 1, bld RN Notified HISTORICAL RESULTS Blood specimen (specimen) 02/05/2013 6:12 PM CDT Silva Taylor MD LAB BLOOD ORDERABLES F inal Result Performing Organization Address [facility] de Phone Number HISTORICAL RESULTS * (ABNORMAL) Blood glucose, POC (02/05/2013 1:05 PM CDT) Glucose, POC, bld 429(H) 65 - 199 mg/dl HISTORICAL RESULTS Gluc, com 1, bld RN Notified HISTORICAL RESULTS Blood specimen (specimen) 02/05/2013 1:05 PM CDT Silva Taylor MD LAB BLOOD ORDERABLES F inal Result Performing Organization Address [facility] de Phone Number HISTORICAL RESULTS * (ABNORMAL) Blood glucose, POC (02/05/2013 11:38 AM CDT) [facility] Glucose, POC, bld >450(C) 65 - 199 mg/dl HISTORICAL RESULTS Gluc, com 1, bld RN Notified HISTORICAL RESULTS Blood specimen (specimen) 02/05/2013 11:38 AM CDT Silva Taylor MD LAB BLOOD ORDERABLES F inal Result Performing Organization Address [facility] de Phone Number HISTORICAL RESULTS * (ABNORMAL) Plasma basic metabolic panel (02/05/2013 11:00 AM CDT) [facility] A. gap 4 0 - 16 mmol/L HISTORICAL RESULTS Sodium 135 135 - 145 mmol/L HISTORICAL RESULTS K, pl 3.7 3.3 - 4.9 mmol/L HISTORICAL RESULTS Chloride 90(L) 97 - 110 mmol/L HISTORICAL RESULTS CO2 41(H) 22 - 32 mmol/L HISTORICAL RESULTS Glucose 318(H) 65 - 199 mg/dl HISTORICAL RESULTS BUN 10 8 - 25 mg/dl HISTORICAL RESULTS Creatinine 0.86 0.70 - 1.30 mg/dl HISTORICAL RESULTS Calcium 8.4(L) 8.6 - 10.3 mg/dl HISTORICAL RESULTS Plasma 02/05/2013 11:0 0 AM CDT Ni Agarwal LAB BLOOD ORDERABLES Final R esult Performing Organization Address [facility] de Phone Number HISTORICAL RESULTS * (ABNORMAL) Plasma phosphorus (02/05/2013 11:00 AM CDT) [facility] Phosphorus, pl 1.7(L) 2.3 - 4.3 mg/dl HISTORICAL RESULTS Plasma 02/05/2013 11:0 0 AM CDT Ni Agarwal LAB BLOOD ORDERABLES Final R esult Performing Organization Address [facility] de Phone Number HISTORICAL RESULTS * Serum magnesium (02/05/2013 11:00 AM CDT) Pathologist [facility] Magnesium 1.6 1.4 - 2.5 mg/dl HISTORICAL RESULTS Serum 02/05/2013 11:0 0 AM CDT Ni Agarwal LAB BLOOD ORDERABLES Final [facility] Performing Organization Address [facility] de Phone Number HISTORICAL RESULTS * (ABNORMAL) Blood cell count (CBC) (02/05/2013 11:00 AM CDT) WBC 9.1 3.8 - 9.8 K/cumm HISTORICAL RESULTS RBC 2.60(L) 4.50 - 5.70 M/cumm HISTORICAL RESULTS Hgb 9.5(L) 13.8 - 17.2 g/dl HISTORICAL RESULTS Hct 27.8(L) 40.7 - 50.3 % HISTORICAL RESULTS MCV 106.8(H) 80.0 - 97.6 fl HISTORICAL RESULTS MCH 36.6(H) 26.7 - 33.7 pg HISTORICAL RESULTS MCHC 34.2 32.7 - 35.5 g/dl HISTORICAL RESULTS Rdw 13.5 11.8 - 14.6 % HISTORICAL RESULTS Platelets 112(L) 140 - 440 K/cumm HISTORICAL RESULTS MPV 10.4 6.8 - 10.4 fl HISTORICAL RESULTS Blood specimen (specimen) 02/05/2013 11:00 AM CDT Ni Agarwal LAB BLOOD ORDERABLES Final [facility] Performing Organization Address [facility] de Phone Number HISTORICAL RESULTS * (ABNORMAL) Blood cell morphologic exam (02/05/2013 11:00 AM CDT) WBC counted 100 # of cells HISTORI RHODA RESULTS Neutrophils 78 44 - 80 % HISTORIC AL RESULTS Lymphocytes 8(L) 13 - 44 % HISTORIC AL RESULTS Monos 10(H) 2 - 8 % HISTORICAL RESULTS Neutrophilic bands 4 0 - 6 % HISTORICAL RESULTS Platelet estimate Decreased (A) Adequate HISTORICAL RESULTS Macrocytosis 3-7/HPF(A ) None Seen HISTORICAL RESULTS Microcytosis 3-7/HPF(A ) None Seen HISTORICAL RESULTS Ovalocytes 3-7/HPF(A ) None Seen HISTORICAL RESULTS Polychromasia 3-7/HPF(A ) None Seen HISTORICAL RESULTS Blood specimen (specimen) 02/05/2013 11:00 AM CDT Result [facility] Ni Agarwal LAB BLOOD ORDERABLES Final R esult HISTORICAL RESULTS * (ABNORMAL) Blood glucose, POC (02/05/2013 5:42 AM CDT) Glucose, POC, bld 253(H) 65 - 199 mg/dl HISTORICAL RESULTS Blood specimen (specimen) 02/05/2013 5:42 AM CDT Result [facility] Silva Taylor MD LAB BLOOD ORDERABLES F inal Result Performing Organization Address [facility]/ZIP Co de Phone Number HISTORICAL RESULTS * ELECTROCARDIOGRAPHY (ECG) (02/05/2013) Narrative 02/05/2013 Ordered by an unspecified provider. Result [facility] Historical Provider ECG ORDERABLES Final Res ult * ELECTROCARDIOGRAPHY (ECG) (02/05/2013) Narrative 02/05/2013 Ordered by an unspecified provider. Result [facility] Historical Provider ECG ORDERABLES Final Res ult * (ABNORMAL) Blood glucose, POC (02/04/2013 11:57 PM CDT) Glucose, POC, bld 214(H) 65 - 199 mg/dl HISTORICAL RESULTS Blood specimen (specimen) 02/04/2013 11:57 PM CDT Result [facility] Silva Taylor MD LAB BLOOD ORDERABLES F inal Result HISTORICAL RESULTS * Blood glucose, POC (02/04/2013 6:58 PM CDT) Glucose, POC, bld 122 65 - 199 mg/dl HISTORICAL RESULTS Blood specimen (specimen) 02/04/2013 6:58 PM CDT us Silva Taylor MD LAB BLOOD ORDERABLES F inal Result HISTORICAL RESULTS * Endovascular VC Filter Insertion (02/04/2013 5:44 PM CDT) Anatomical Region Laterality Modality Body N/A X-Ray Angiograph y 02/04/2013 5:44 PM CDT Narrative 02/05/2013 10:26 AM CDT FUAD SHEN M.D. BRI ALLEN M.D. FINAL REPORT The radiology attending physician has personally reviewed this study, and has reviewed and/or edited this written report and agrees with it. ACC# ??Date Time ??Exam [id number] Feb 04, 2013 17:44:00 [id number] Ins VenaCava Filter wImage EXAMINATION: ?INFERIOR VENA CAVAGRAM AND INFERIOR VENA CAVA FILTER PLACEMENT HISTORY/INDICATION: ??47 year old man with acute pancreatitis and right lower extremity DVT. Patient not felt to be a medical anticoagulation candidate at this time. Temporary IVC filter requested. ATTENDING PRESENCE: Dr. Shen, the attending radiologist, was present from the beginning to the end of the procedure. SEDATION: Moderate sedation was administered under the attending physician's direction and continuous monitoring by a trained nurse specialist who was independent from those actually performing the procedure. ??Total monitored sedation time was 25 minutes. TECHNIQUE: ??The risks, benefits and alternatives were discussed and informed consent was obtained. Prior to beginning the procedure, Hudson Protocol was performed to confirm the patient's identity and the planned procedure. ??The fluoroscopy time has been recorded in the electronic medical record. ??Maximum sterile barriers including cap, mask, hand hygiene, sterile gloves, sterile gown, large sterile drape and 2% chlorhexidine for cutaneous antisepsis were used. Prior to the procedure, the central veins were evaluated by ultrasound. The recorded image shows a patent vessel. The skin over the left internal jugular vein was infiltrated with 1% lidocaine. This vein was then accessed using realtime ultrasound guidance and a guidewire passed centrally with fluoroscopic monitoring. A catheter was advanced to the confluence of the IVC and iliac veins using fluoroscopic guidance. DSA images of the inferior vena cava were recorded during contrast injection. The catheter was then positioned within the infrarenal IVC and exchanged for the filter delivery sheath. A Tulip filter was deployed in the infrarenal IVC. A completion venogram was obtained. At the end of the procedure, the sheath was removed and pressure held until hemostasis was achieved. ESTIMATED BLOOD LOSS: Minimal CONDITION: Stable condition DISCHARGED TO: ??Recovery and then to inpatient unit. FINDINGS: Images of the IVC show a circumaortic left renal vein. Post-placement venogram demonstrates the filter to be intrarenal to the inferior-most left renal vein. No complications identified. ?? IMPRESSION: ?? Successful placement of a filter in the infrarenal cava. PLAN: A retrievable filter has been placed. ??If clinically indicated, the filter may be retrieved when the patient is appropriately anti-coagulated. ??In order to schedule filter removal please call [phone]. ??This filter can also be left in place as a permanent IVC filter if appropriate. ?? Requested By: DERRICK DOMINGUEZ M.D. Dictated By: ?? BRI ALLEN M.D. ??on Feb 04 2013 ??6:29P This document has been electronically signed by: FUAD SHEN M.D. on Feb 05 2013 10:26A Procedure Note Provider, MD Shmuel - 03/22/2017 FUAD SHEN M.D. BRI ALLEN M.D. FINAL REPORT The radiology attending physician has personally reviewed this study, and has reviewed and/or edited this written report and agrees with it. ACC# Date Time Exam [id number] Feb 04, 2013 17:44:00 [id number] Ins VenaCava Filter wImage EXAMINATION: INFERIOR VENA CAVAGRAM AND INFERIOR VENA CAVA FILTER PLACEMENT HISTORY/INDICATION: 47 year old man with acute pancreatitis and right lower extremity DVT. Patient not felt to be a medical anticoagulation candidate at this time. Temporary IVC filter requested. ATTENDING PRESENCE: Dr. Shen, the attending radiologist, was present from the beginning to the end of the procedure. SEDATION: Moderate sedation was administered under the attending physician's direction and continuous monitoring by a trained nurse specialist who was independent from those actually performing the procedure. Total monitored sedation time was 25 minutes. TECHNIQUE: The risks, benefits and alternatives were discussed and informed consent was obtained. Prior to beginning the procedure, Hudson Protocol was performed to confirm the patient's [...] over the left internal jugular vein was infiltrated with 1% lidocaine. This vein was then accessed using realtime ultrasound guidance and a guidewire passed centrally with fluoroscopic monitoring. A catheter was advanced to the confluence of the IVC and iliac veins using fluoroscopic guidance. DSA images of the inferior vena cava were recorded during contrast injection. The catheter was then positioned within the infrarenal IVC and exchanged for the filter delivery sheath. A Tulip filter was deployed in the infrarenal IVC. A completion venogram was obtained. At the end of the procedure, the sheath was removed and pressure held until hemostasis was achieved. ESTIMATED BLOOD LOSS: Minimal CONDITION: Stable condition DISCHARGED TO: Recovery and then to inpatient unit. FINDINGS: Images of the IVC show a circumaortic left renal vein. Post-placement venogram demonstrates the filter to be intrarenal to the inferior-most left renal vein. No complications identified. IMPRESSION: Successful placement of a filter in the infrarenal cava. PLAN: A retrievable filter has been placed. If clinically indicated, the filter may be retrieved when the patient is appropriately anti-coagulated. In order to schedule filter removal please call [phone]. This filter can also be left in place as a permanent IVC filter if appropriate. Requested By: DERRICK DOMINGUEZ M.D. Dictated By: BRI ALLEN M.D. on Feb 04 2013 6:29P This document has been electronically signed by: FUAD SHEN M.D. on Feb 05 2013 10:26A us Historical Provider MD [facility] IR PROCEDURES Final R esult * (ABNORMAL) Blood glucose, POC (02/04/2013 12:10 PM CDT) Glucose, POC, bld 203(H) 65 - 199 mg/dl HISTORICAL RESULTS Blood specimen (specimen) 02/04/2013 12:10 PM CDT Silva Taylor MD LAB BLOOD ORDERABLES F inal Result Performing Organization Address [facility]/ZIP Co de Phone Number HISTORICAL RESULTS * (ABNORMAL) Plasma comprehensive metabolic panel (02/04/2013 12:00 PM CDT) Sodium 136 135 - 145 mmol/L HISTORICAL RESULTS K, pl 4.4 3.3 - 4.9 mmol/L HISTORICAL RESULTS Chloride 89(L) 97 - 110 mmol/L HISTORICAL RESULTS CO2 39(H) 22 - 32 mmol/L HISTORICAL RESULTS A. gap 8 0 - 16 mmol/L HISTORICAL RESULTS Glucose 177 65 - 199 mg/dl HISTORICAL RESULTS BUN 12 8 - 25 mg/dl HISTORICAL RESULTS Creatinine 0.88 0.70 - 1.30 mg/dl HISTORICAL RESULTS Calcium 8.9 8.6 - 10.3 mg/dl HISTORICAL RESULTS Protein, pl 6.2(L) 6.5 - 8.5 g/dl HISTORICAL RESULTS Alb 3.0(L) 3.6 - 5.0 g/dl HISTORICAL RESULTS Bilirubin 0.6 0.3 - 1.1 mg/dl HISTORICAL RESULTS Alk phos 116 38 - 126 Units/L HISTORICAL RESULTS AST 24 11 - 47 Units/L HISTORICAL RESULTS ALT 20 7 - 53 Units/L HISTORICAL RESULTS Plasma 02/04/2013 12:0 0 PM CDT Ni Agarwal LAB BLOOD ORDERABLES Final R esult Performing Organization Address [facility] Co de Phone Number HISTORICAL RESULTS * (ABNORMAL) Serum lactate dehydrogenase (LDH) (02/04/2013 12:00 PM CDT) Lactate dehydrogenase (LDH) 452(H) 100 - 250 Units/L HISTORICAL RESULTS Serum 02/04/2013 12:0 0 PM CDT Ni Agarwal LAB BLOOD ORDERABLES Final R esult HISTORICAL RESULTS * (ABNORMAL) Plasma phosphorus (02/04/2013 12:00 PM CDT) Phosphorus, pl 1.9(L) 2.3 - 4.3 mg/dl HISTORICAL RESULTS Plasma 02/04/2013 12:0 0 PM CDT Ni Agarwal LAB BLOOD ORDERABLES Final R [facility] Performing Organization Address [facility] Phone Number HISTORICAL RESULTS * Serum uric acid (02/04/2013 12:00 PM CDT) Uric acid 5.3 3.0 - 8.0 mg/dl HISTORICAL RESULTS Serum 02/04/2013 12:0 0 PM CDT Ni Agarwal LAB BLOOD ORDERABLES Final R [facility] Performing Organization Address [facility] de Phone Number HISTORICAL RESULTS * Serum magnesium (02/04/2013 12:00 PM CDT) Pathologist [facility] Magnesium 2.0 1.4 - 2.5 mg/dl HISTORICAL RESULTS Serum 02/04/2013 12:0 0 PM CDT Ni Agarwal LAB BLOOD ORDERABLES Final R [facility] Performing Organization Address [facility] de Phone Number HISTORICAL RESULTS * (ABNORMAL) Blood cell count (CBC) (02/04/2013 12:00 PM CDT) WBC 14.3(H) 3.8 - 9.8 K/cumm HISTORICAL RESULTS RBC 2.91(L) 4.50 - 5.70 M/cumm HISTORICAL RESULTS Hgb 10.7(L) 13.8 - 17.2 g/dl HISTORICAL RESULTS Hct 31.4(L) 40.7 - 50.3 % HISTORICAL RESULTS MCV 108.0(H) 80.0 - 97.6 fl HISTORICAL RESULTS MCH 36.9(H) 26.7 - 33.7 pg HISTORICAL RESULTS MCHC 34.2 32.7 - 35.5 g/dl HISTORICAL RESULTS Rdw 13.2 11.8 - 14.6 % HISTORICAL RESULTS Platelets 117(L) 140 - 440 K/cumm HISTORICAL RESULTS Comment:Verified MPV 10.9(H) 6.8 - 10.4 fl HISTORICAL RESULTS Blood specimen (specimen) 02/04/2013 12:00 PM CDT Ni Agarwal LAB BLOOD ORDERABLES Final R [facility] Performing Organization Address [facility] de Phone Number HISTORICAL RESULTS * Blood ABO, Rh, indirect ab screen (02/04/2013 12:00 PM CDT) ABO, Rho(D) A Positive HISTORI RHODA RESULTS Ursula, indirect Negative HISTORICAL RESULTS Blood specimen (specimen) 02/04/2013 12:00 PM CDT Ni Agarwal LAB BLOOD ORDERABLES Final R [email or web address] Performing Organization Address [facility] de Phone Number HISTORICAL RESULTS * (ABNORMAL) Blood cell morphologic exam (02/04/2013 12:00 PM CDT) WBC counted 100 # of cells HISTORI RHODA RESULTS Neutrophils 76 44 - 80 % HISTORIC AL RESULTS Lymphocytes 15 13 - 44 % HISTORIC AL RESULTS Monos 8 2 - 8 % HISTORICAL RESULTS Eosinophils 0 0 - 6 % HISTORIC AL RESULTS Basophils 0 0 - 3 % HISTORICAL RESULTS Large platelets 2(H) 0 - 0 /hpf HIS TORICAL RESULTS Platelet estimate Decreased (A) Adequate HISTORICAL RESULTS Platelet morphology Few Enlarged( A) HISTORICAL RESULTS Anisocytosis Trace None Seen HISTORI RHODA RESULTS Macrocytosis 3-7/HPF(A ) None Seen HISTORICAL RESULTS Microcytosis 3-7/HPF(A ) None Seen HISTORICAL RESULTS Ovalocytes 3-7/HPF(A ) None Seen HISTORICAL RESULTS Blood specimen (specimen) 02/04/2013 12:00 PM CDT Ni Agarwal LAB BLOOD ORDERABLES Final R esult Performing Organization Address [facility] de Phone Number HISTORICAL RESULTS * NJ Tube Placement (02/04/2013 11:45 AM CDT) Anatomical Region Laterality Modality Body N/A X-Ray Angiograph y 02/04/2013 11:4 5 AM CDT Narrative 02/04/2013 1:10 PM CDT CIERA VELA M.D. TEDDY BECKETT, FINAL REPORT The radiology attending physician has personally reviewed this study, and has reviewed and/or edited this written report and agrees with it. ACC# ??Date Time ??Exam [id number] Feb 04, 2013 11:45:00 [id number] Long GI tube [id number] Feb 04, 2013 11:45:00 [id number] Intro GI tube EXAMINATION: ?Feeding tube placement HISTORY: ??47-year-old man with acute pancreatitis. Feeding tube placement is requested. TECHNIQUE: Lidocaine jelly was placed in the right naris. A feeding tube was guided via the right naris to the proximal small bowel. A small amount of contrast was injected to confirm position. The tube was flushed with water and secured with tape. The patient tolerated the procedure well without complication. FINDINGS: ?? The tip of the feeding tube is positioned at the ligament of Treitz. Dr. Ciera Joyner, the attending radiologist, was present during the procedure. IMPRESSION: ?? Placement of feeding tube, tip at the ligament of Treitz. Tube is ready for immediate use. Requested By: NI AGARWAL M.D. Dictated By: ?? TEDDY BECKETT, ?? on Feb 04 2013 11:54A This document has been electronically signed by: CIERA VELA M.D. on Feb 04 2013 ??1:10P Procedure Note Provider, MD Shmuel - 03/22/2017 CIERA VELA M.D. TEDDY BECKETT, FINAL REPORT The radiology attending physician has personally reviewed this study, and has reviewed and/or edited this written report and agrees with it. ACC# Date Time Exam [id number] Feb 04, 2013 11:45:00 [id number] Long GI tube [id number] Feb 04, 2013 11:45:00 [id number] Intro GI tube EXAMINATION: Feeding tube placement HISTORY: 47-year-old man with acute pancreatitis. Feeding tube placement is requested. TECHNIQUE: Lidocaine jelly was placed in the right naris. A feeding tube was guided via the right naris to the proximal small bowel. A small amount of contrast was injected to confirm position. The tube was flushed with water and secured with tape. The patient tolerated the procedure well without complication. FINDINGS: The tip of the feeding tube is positioned at the ligament of Treitz. Dr. Ciera Joyner, the attending radiologist, was present during the procedure. IMPRESSION: Placement of feeding tube, tip at the ligament of Treitz. Tube is ready for immediate use. Requested By: NI AGARWAL M.D. Dictated By: TEDDY BECKETT on Feb 04 2013 11:54A This document has been electronically signed by: CIERA VELA M.D. on Feb 04 2013 1:10P us Historical Provider MD [facility]APIA IR PROCEDURES Final R esult * NJ Tube Placement (02/04/2013 11:45 AM CDT) Anatomical Region Laterality Modality Body N/A X-Ray Angiograph y 02/04/2013 11:4 5 AM CDT Narrative 02/04/2013 1:10 PM CDT CIERA VELA M.D. TEDDY BECKETT, FINAL REPORT The radiology attending physician has personally reviewed this study, and has reviewed and/or edited this written report and agrees with it. ACC# ??Date Time ??Exam [id number] Feb 04, 2013 11:45:00 [id number] Long GI tube [id number] Feb 04, 2013 11:45:00 [id number] Intro GI tube EXAMINATION: ?Feeding tube placement HISTORY: ??47-year-old man with acute pancreatitis. Feeding tube placement is requested. TECHNIQUE: Lidocaine jelly was placed in the right naris. A feeding tube was guided via the right naris to the proximal small bowel. A small amount of contrast was injected to confirm position. The tube was flushed with water and secured with tape. The patient tolerated the procedure well without complication. FINDINGS: ?? The tip of the feeding tube is positioned at the ligament of Treitz. Dr. Ciera Joyner, the attending radiologist, was present during the procedure. IMPRESSION: ?? Placement of feeding tube, tip at the ligament of Treitz. Tube is ready for immediate use. Requested By: NI AGARWAL M.D. Dictated By: ?? TEDDY BECKETT, ?? on Feb 04 2013 11:54A This document has been electronically signed by: CIERA VELA M.D. on Feb 04 2013 ??1:10P Procedure Note Provider, Shmuel, - 03/22/2017 CIERA VELA M.D. TEDDY BECKETT, FINAL REPORT The radiology attending physician has personally reviewed this study, and has reviewed and/or edited this written report and agrees with it. ACC# Date Time Exam [id number] Feb 04, 2013 11:45:00 [id number] Long GI tube [id number] Feb 04, 2013 11:45:00 [id number] Intro GI tube EXAMINATION: Feeding tube placement HISTORY: 47-year-old man with acute pancreatitis. Feeding tube placement is requested. TECHNIQUE: Lidocaine jelly was placed in the right naris. A feeding tube was guided via the right naris to the proximal small bowel. A small amount of contrast was injected to confirm position. The tube was flushed with water and secured with tape. The patient tolerated the procedure well without complication. FINDINGS: The tip of the feeding tube is positioned at the ligament of Treitz. Dr. Ciera Joyner, the attending radiologist, was present during the procedure. IMPRESSION: Placement of feeding tube, tip at the ligament of Treitz. Tube is ready for immediate use. Requested By: NI AGARWAL M.D. Dictated By: TEDDY BECKETT, on Feb 04 2013 11:54A This document has been electronically signed by: CIERA VELA M.D. on Feb 04 2013 1:10P Historical Provider IMG IR PROCEDURES Final R esult * Blood glucose, POC (02/04/2013 6:32 AM CDT) Glucose, POC, bld 134 65 - 199 mg/dl HISTORICAL RESULTS Blood specimen (specimen) 02/04/2013 6:32 AM CDT Silva Taylor MD LAB BLOOD ORDERABLES F inal Result Performing Organization Address [facility] Co de Phone Number HISTORICAL RESULTS * Blood glucose, POC (02/03/2013 11:49 PM CDT) Glucose, POC, bld 169 65 - 199 mg/dl HISTORICAL RESULTS Blood specimen (specimen) 02/03/2013 11:49 PM CDT Silva Taylor MD LAB BLOOD ORDERABLES F inal Result Performing Organization Address [facility] de Phone Number HISTORICAL RESULTS * Blood glucose, POC (02/03/2013 6:11 PM CDT) Glucose, POC, bld 196 65 - 199 mg/dl HISTORICAL RESULTS Blood specimen (specimen) 02/03/2013 6:11 PM CDT Silva Taylor MD LAB BLOOD ORDERABLES F inal Result Performing Organization Address [facility] de Phone Number HISTORICAL RESULTS * CT Chest W Contrast (02/03/2013 2:17 PM CDT) Anatomical Region Laterality Modality Body N/A Computed Tomogra phy 02/03/2013 2:17 PM CDT Narrative 02/03/2013 3:36 PM CDT CRUZ GUO M.D. [facility] AST[facility], FINAL REPORT The radiology attending physician has personally reviewed this study, and has reviewed and/or edited this written report and agrees with it. ACC# ??Date Time ??Exam [id number] Feb 03, 2013 14:17:[id number] Chest with contrast EXAMINATION: ?CT of the chest with contrast HISTORY: ??Pulmonary embolism TECHNIQUE: CT of the chest was obtained according to standard protocol after the uneventful administration of 95 mL of Optiray-350 intravenous contrast. FINDINGS: Comparison is made to prior study dated 02/02/2013. There are filling defects noted in a subsegmental right lower lobe pulmonary artery and subsegmental right upper lobe pulmonary artery. Changes of upper lobe predominant centrilobular emphysema are again noted. Chronic findings of partial right middle lobe collapse are again noted. There are bilateral pleural effusions, right greater than left, associated with some adjacent atelectasis. The heart size is normal. There is no mediastinal, hilar, supraclavicular, or axillary lymphadenopathy. Limited evaluation of the upper abdomen redemonstrate findings of pancreatitis with stranding around the enlarged pancreas and occlusion of the splenic vein. A bone. ?? IMPRESSION: 1. Pulmonary emboli, as partially seen on prior CT of the abdomen and pelvis dated 02/02/2013. 2. Bilateral pleural effusions, unchanged. 3. Unchanged findings compatible with pancreatitis. ?? Requested By: DERRICK DOMINGUEZ M.D. Dictated By: ?? SHY ASTORGA, ?? on Feb 03 2013 ??2:59P This document has been electronically signed by: CRUZ GUO M.D. on Feb 03 2013 ??3:36P Procedure Note Provider, MD Shmuel - 03/22/2017 CRUZ GUO M.D. SHY ASTORGA, FINAL REPORT The radiology attending physician has personally reviewed this study, and has reviewed and/or edited this written report and agrees with it. ACC# Date Time Exam [id number] Feb 03, 2013 14:17:[id number] Chest with contrast EXAMINATION: CT of the chest with contrast HISTORY: Pulmonary embolism TECHNIQUE: CT of the chest was obtained according to standard protocol after the uneventful administration of 95 mL of Optiray-350 intravenous contrast. FINDINGS: Comparison is made to prior study dated 02/02/2013. There are filling defects noted in a subsegmental right lower lobe pulmonary artery and subsegmental right upper lobe pulmonary artery. Changes of upper lobe predominant centrilobular emphysema are again noted. Chronic findings of partial right middle lobe collapse are again noted. There are bilateral pleural effusions, right greater than left, associated with some adjacent atelectasis. The heart size is normal. There is no mediastinal, hilar, supraclavicular, or axillary lymphadenopathy. Limited evaluation of the upper abdomen redemonstrate findings of pancreatitis with stranding around the enlarged pancreas and occlusion of the splenic vein. A bone. IMPRESSION: 1. Pulmonary emboli, as partially seen on prior CT of the abdomen and pelvis dated 02/02/2013. 2. Bilateral pleural effusions, unchanged. 3. Unchanged findings compatible with pancreatitis. Requested By: DERRICK DOMINGUEZ M.D. Dictated By: SHY ASTORGA, on Feb 03 2013 2:59P This document has been electronically signed by: CRUZ GUO M.D. on Feb 03 2013 3:36P Historical Provider IMWilder CT PROCEDURES Final R esult * (ABNORMAL) Plasma basic metabolic panel (02/03/2013 12:15 PM CDT) Pathologist [facility] Sodium 136 135 - 145 mmol/L HISTORICAL RESULTS K, pl 4.0 3.3 - 4.9 mmol/L HISTORICAL RESULTS Chloride 91(L) 97 - 110 mmol/L HISTORICAL RESULTS CO2 39(H) 22 - 32 mmol/L HISTORICAL RESULTS A. gap 6 0 - 16 mmol/L HISTORICAL RESULTS Glucose 173 65 - 199 mg/dl HISTORICAL RESULTS BUN 12 8 - 25 mg/dl HISTORICAL RESULTS Creatinine 0.93 0.70 - 1.30 mg/dl HISTORICAL RESULTS Calcium 9.0 8.6 - 10.3 mg/dl HISTORICAL RESULTS Comment:{Repeated and verifi ed.} Plasma 02/03/2013 12:1 5 PM CDT Wilbert Corcoran LAB BLOOD ORDERABLES Final Resul t Performing Organization Address [facility] Co de Phone Number HISTORICAL RESULTS * (ABNORMAL) Blood glucose, POC (02/03/2013 11:48 AM CDT) Pathologist [facility] Glucose, POC, bld 224(H) 65 - 199 mg/dl HISTORICAL RESULTS Blood specimen (specimen) 02/03/2013 11:48 AM CDT Silva Taylor MD LAB BLOOD ORDERABLES F inal Result HISTORICAL RESULTS * (ABNORMAL) Plasma basic metabolic panel (02/03/2013 11:00 AM CDT) Sodium 125(L) 135 - 145 mmol/L HISTORICAL RESULTS K, pl 3.6 3.3 - 4.9 mmol/L HISTORICAL RESULTS Chloride 84(L) 97 - 110 mmol/L HISTORICAL RESULTS CO2 34(H) 22 - 32 mmol/L HISTORICAL RESULTS A. gap 7 0 - 16 mmol/L HISTORICAL RESULTS BUN 11 8 - 25 mg/dl HISTORICAL RESULTS Creatinine 0.77 0.70 - 1.30 mg/dl HISTORICAL RESULTS Calcium 7.9(L) 8.6 - 10.3 mg/dl HISTORICAL RESULTS Glucose 524(C) 65 - 199 mg/dl HISTORICAL RESULTS Comment:{Repeated and verifi ed.} Plasma 02/03/2013 11:0 0 AM CDT Ni Agarwal LAB BLOOD ORDERABLES Final R esult Performing Organization Address [facility] de Phone Number HISTORICAL RESULTS * Plasma phosphorus (02/03/2013 11:00 AM CDT) Phosphorus, pl 2.3 2.3 - 4.3 mg/dl HISTORICAL RESULTS Plasma 02/03/2013 11:0 0 AM CDT Ni Agarwal LAB BLOOD ORDERABLES Final R [facility] Performing Organization Address City/[facility] Co de Phone Number HISTORICAL RESULTS * Critical result call back (02/03/2013 11:00 AM CDT) Date notified 02/03/2013 HISTO RICAL RESULTS Time notified [id number] HISTOR ICAL RESULTS Test name Glucose HISTORICAL RESULTS Called to Pepper Herr HISTORICAL RESULTS Credentials RN HISTORIC AL RESULTS Called by Waqar HISTORICAL RESULTS No specimen 02/03/2013 11:0 0 AM CDT Ni Agarwal LAB BLOOD ORDERABLES Final [facility] Performing Organization Address [facility] Co de Phone Number HISTORICAL RESULTS * (ABNORMAL) Serum magnesium (02/03/2013 11:00 AM CDT) Magnesium 1.3(L) 1.4 - 2.5 mg/dl HISTORICAL RESULTS Serum 02/03/2013 11:0 0 AM CDT Ni Agarwal LAB BLOOD ORDERABLES Final [facility] Performing Organization Address [facility] de Phone Number HISTORICAL RESULTS * (ABNORMAL) Blood cell count (CBC) (02/03/2013 11:00 AM CDT) WBC 13.1(H) 3.8 - 9.8 K/cumm HISTORICAL RESULTS RBC 2.47(L) 4.50 - 5.70 M/cumm HISTORICAL RESULTS Hgb 9.1(L) 13.8 - 17.2 g/dl HISTORICAL RESULTS Hct 26.6(L) 40.7 - 50.3 % HISTORICAL RESULTS MCV 107.7(H) 80.0 - 97.6 fl HISTORICAL RESULTS MCH 36.9(H) 26.7 - 33.7 pg HISTORICAL RESULTS MCHC 34.3 32.7 - 35.5 g/dl HISTORICAL RESULTS Rdw 13.5 11.8 - 14.6 % HISTORICAL RESULTS Platelets 84(L) 140 - 440 K/cumm HISTORICAL RESULTS MPV 11.0(H) 6.8 - 10.4 fl HISTORICAL RESULTS Blood specimen (specimen) 02/03/2013 11:00 AM CDT Ni Agarwal LAB BLOOD ORDERABLES Final R [facility] Performing Organization Address [facility] de Phone Number HISTORICAL RESULTS * (ABNORMAL) Blood cell morphologic exam (02/03/2013 11:00 AM CDT) WBC counted 100 # of cells HISTORI RHODA RESULTS Neutrophils 93(H) 44 - 80 % HISTORIC AL RESULTS Lymphocytes 1(L) 13 - 44 % HISTORIC AL RESULTS Monos 5 2 - 8 % HISTORICAL RESULTS Eosinophils 1 0 - 6 % HISTORIC AL RESULTS Platelet estimate Decreased (A) Adequate HISTORICAL RESULTS Polychromasia 3-7/HPF(A ) None Seen HISTORICAL RESULTS Blood specimen (specimen) 02/03/2013 11:00 AM CDT Ni Agarwal LAB BLOOD ORDERABLES Final R esult Performing Organization Address [facility] Co de Phone Number HISTORICAL RESULTS * Blood glucose, POC (02/03/2013 5:56 AM CDT) Glucose, POC, bld 116 65 - 199 mg/dl HISTORICAL RESULTS Blood specimen (specimen) 02/03/2013 5:56 AM CDT Silva Taylor MD LAB BLOOD ORDERABLES F inal Result Performing Organization Address [facility] Co de Phone Number HISTORICAL RESULTS * VASCULAR LABORATORY REPORT (02/03/2013) Anatomical Region Laterality Modality Ultrasound Narrative 02/03/2013 Ordered by an unspecified provider. Historical Provider CV VASCULAR PROCEDURES Fi nal Result * (ABNORMAL) Blood glucose, POC (02/02/2013 11:54 PM CDT) Glucose, POC, bld 205(H) 65 - 199 mg/dl HISTORICAL RESULTS Blood specimen (specimen) 02/02/2013 11:54 PM CDT Silva Taylor MD LAB BLOOD ORDERABLES F inal Result Performing Organization Address [facility] Co de Phone Number HISTORICAL RESULTS * (ABNORMAL) Blood glucose, POC (02/02/2013 7:59 PM CDT) Glucose, POC, bld 212(H) 65 - 199 mg/dl HISTORICAL RESULTS Blood specimen (specimen) 02/02/2013 7:59 PM CDT Silva Taylor MD LAB BLOOD ORDERABLES F inal Result Performing Organization Address [facility] Co de Phone Number HISTORICAL RESULTS * (ABNORMAL) Blood glucose, POC (02/02/2013 6:09 PM CDT) Glucose, POC, bld 257(H) 65 - 199 mg/dl HISTORICAL RESULTS Blood specimen (specimen) 02/02/2013 6:09 PM CDT Silva Cole Taylor MD LAB BLOOD ORDERABLES F inal Result HISTORICAL RESULTS * CT Abdomen Pelvis W Contrast (02/02/2013 2:08 PM CDT) Anatomical Region Laterality Modality Body N/A Computed Tomogra phy 02/02/2013 2:08 PM CDT Narrative 02/02/2013 3:08 PM CDT GURDEEP ROGEL M.D. FINAL REPORT ACC# ??Date Time ??Exam [id number] Feb 02, 2013 14:08:[id number] Abd & Pelvis with cont EXAMINATION: ?CT ABDOMEN AND PELVIS WITH INTRAVENOUS CONTRAST TECHNIQUE: Standard postcontrast CT of the abdomen pelvis was performed. Images were performed after the administration of Optiray 350 intravenous contrast: 94 mL HISTORY: Acute pancreatitis FINDINGS: comparison is made to prior study of January 25, 2013. In the interval, there has been no change in bilateral pleural effusions. Better visualized on today's study is a right lower lobe nonocclusive pulmonary embolism. Mild bibasilar atelectasis is noted as well as underlying emphysema. Again seen are findings of pancreatitis with extensive stranding seen around an enlarged pancreas . The liver and spleen are unremarkable. 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 This is new when compared to the prior study. There is no pseudoaneurysm. Small amount of ascites is seen. Small ventral hernia containing fat but no bowel is noted. Small amount of free fluid is seen within the pelvis. The kidneys are symmetric bilaterally. No hydronephrosis is seen. No abscess or free to brachial gas. Llamas catheter ends within the urinary bladder. The bone windows fail to demonstrate any osseous lesions. IMPRESSION: ?? 1. 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 The a majority of the pancreas enhances normally. No loculated fluid collection is seen. 2. Nonocclusive right lower lobe pulmonary embolism. Dr. Dominguez was phoned with a preliminary result. Requested By: DERRICK DOMINGUEZ M.D. Dictated By: ?? GURDEEP ROGEL M.D. ??on Feb 02 2013 ??3:08P This document has been electronically signed by: GURDEEP ROGEL M.D. on Feb 02 2013 ??3:08P Procedure Note Provider, MD Shmuel - 03/22/2017 GURDEEP ROGEL M.D. FINAL REPORT ACC# Date Time Exam [id number] Feb 02, 2013 14:08:[address] Abd & Pelvis with cont EXAMINATION: CT ABDOMEN AND PELVIS WITH INTRAVENOUS CONTRAST TECHNIQUE: Standard postcontrast CT of the abdomen pelvis was performed. Images were performed after the administration of Optiray 350 intravenous contrast: 94 mL HISTORY: Acute pancreatitis FINDINGS: comparison is made to prior study of January 25, 2013. In the interval, there has been no change in bilateral pleural effusions. Better visualized on today's study is a right lower lobe nonocclusive pulmonary embolism. Mild bibasilar atelectasis is noted as well as underlying emphysema. Again seen are findings of pancreatitis with extensive stranding seen around an enlarged pancreas . The liver and spleen are unremarkable. 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 This is new when compared to the prior study. There is no pseudoaneurysm. Small amount of ascites is seen. Small ventral hernia containing fat but no bowel is noted. Small amount of free fluid is seen within the pelvis. The kidneys are symmetric bilaterally. No hydronephrosis is seen. No abscess or free to brachial gas. Llamas catheter ends within the urinary bladder. The bone windows fail to demonstrate any osseous lesions. IMPRESSION: 1. 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 The a majority of the pancreas enhances normally. No loculated fluid collection is seen. 2. Nonocclusive right lower lobe pulmonary embolism. Dr. Dominguez was phoned with a preliminary result. Requested By: DERRICK DOMINGUEZ M.D. Dictated By: GURDEEP ROGEL M.D. on Feb 02 2013 3:08P This document has been electronically signed by: GURDEEP ROGEL M.D. on Feb 02 2013 3:08P Historical Provider MD TAPIA CT PROCEDURES Final R esult * (ABNORMAL) Blood glucose, POC (02/02/2013 1:05 PM CDT) Glucose, POC, bld 297(H) 65 - 199 mg/dl HISTORICAL RESULTS Gluc, com 1, bld RN Notified HISTORICAL RESULTS Blood specimen (specimen) 02/02/2013 1:05 PM CDT Silva Taylor MD LAB BLOOD ORDERABLES F inal Result Performing Organization Address [facility] Co de Phone Number HISTORICAL RESULTS * (ABNORMAL) Plasma basic metabolic panel (02/02/2013 10:40 AM CDT) Sodium 137 135 - 145 mmol/L HISTORICAL RESULTS K, pl 3.8 3.3 - 4.9 mmol/L HISTORICAL RESULTS Chloride 93(L) 97 - 110 mmol/L HISTORICAL RESULTS CO2 38(H) 22 - 32 mmol/L HISTORICAL RESULTS A. gap 6 0 - 16 mmol/L HISTORICAL RESULTS Glucose 192 65 - 199 mg/dl HISTORICAL RESULTS BUN 14 8 - 25 mg/dl HISTORICAL RESULTS Creatinine 0.73 0.70 - 1.30 mg/dl HISTORICAL RESULTS Calcium 8.3(L) 8.6 - 10.3 mg/dl HISTORICAL RESULTS Plasma 02/02/2013 10:4 0 AM CDT Ni Agarwal LAB BLOOD ORDERABLES Final R esult Performing Organization Address [facility] Co de Phone Number HISTORICAL RESULTS * (ABNORMAL) Plasma phosphorus (02/02/2013 10:40 AM CDT) Phosphorus, pl 1.9(L) 2.3 - 4.3 mg/dl HISTORICAL RESULTS Plasma 02/02/2013 10:4 0 AM CDT Ni Agarwal LAB BLOOD ORDERABLES Final R esult Performing Organization Address City/State/[facility] Co de Phone Number HISTORICAL RESULTS * Serum magnesium (02/02/2013 10:40 AM CDT) Pathologist [facility] Magnesium 1.9 1.4 - 2.5 mg/dl HISTORICAL RESULTS Serum 02/02/2013 10:4 0 AM CDT Ni Agarwal LAB BLOOD ORDERABLES Final [facility] Performing Organization Address [facility] de Phone Number HISTORICAL RESULTS * (ABNORMAL) Blood cell count (CBC) (02/02/2013 10:40 AM CDT) Pathologist [facility] WBC 13.4(H) 3.8 - 9.8 K/cumm HISTORICAL RESULTS RBC 2.71(L) 4.50 - 5.70 M/cumm HISTORICAL RESULTS Hgb 10.1(L) 13.8 - 17.2 g/dl HISTORICAL RESULTS Hct 29.1(L) 40.7 - 50.3 % HISTORICAL RESULTS MCV 107.4(H) 80.0 - 97.6 fl HISTORICAL RESULTS MCH 37.3(H) 26.7 - 33.7 pg HISTORICAL RESULTS MCHC 34.7 32.7 - 35.5 g/dl HISTORICAL RESULTS Rdw 13.4 11.8 - 14.6 % HISTORICAL RESULTS Platelets 79(L) 140 - 440 K/cumm HISTORICAL RESULTS MPV 11.1(H) 6.8 - 10.4 fl HISTORICAL RESULTS Blood specimen (specimen) 02/02/2013 10:40 AM CDT Ni Agarwal LAB BLOOD ORDERABLES Final R [facility] Performing Organization Address [facility] de Phone Number HISTORICAL RESULTS * (ABNORMAL) Blood cell morphologic exam (02/02/2013 10:40 AM CDT) Pathologist [facility] WBC counted 100 # of cells HISTORI RHODA RESULTS Neutrophils 83(H) 44 - 80 % HISTORIC AL RESULTS Lymphocytes 6(L) 13 - 44 % HISTORIC AL RESULTS Monos 7 2 - 8 % HISTORICAL RESULTS Eosinophils 1 0 - 6 % HISTORIC AL RESULTS Neutrophilic bands 3 0 - 6 % H ISTORICAL RESULTS Platelet estimate Decreased (A) Adequate HISTORICAL RESULTS Anisocytosis Moderate( A) None Seen HISTORICAL RESULTS Macrocytosis 8-15/HPF( A) None Seen HISTORICAL RESULTS Microcytosis 3-7/HPF(A ) None Seen HISTORICAL RESULTS Ovalocytes 3-7/HPF(A ) None Seen HISTORICAL RESULTS Polychromasia 3-7/HPF(A ) None Seen HISTORICAL RESULTS Poikilocytosis Trace(A) None Seen HISTO RICAL RESULTS Blood specimen (specimen) 02/02/2013 10:40 AM CDT Ni Agarwal LAB BLOOD ORDERABLES Final R esult Performing Organization Address [facility] Co de Phone Number HISTORICAL RESULTS * Blood glucose, POC (02/02/2013 9:49 AM CDT) Glucose, POC, bld 193 65 - 199 mg/dl HISTORICAL RESULTS Blood specimen (specimen) 02/02/2013 9:49 AM CDT Silva Taylor MD LAB BLOOD ORDERABLES F inal Result Performing Organization Address [facility] de Phone Number HISTORICAL RESULTS * (ABNORMAL) Blood glucose, POC (02/02/2013 6:25 AM CDT) Glucose, POC, bld 232(H) 65 - 199 mg/dl HISTORICAL RESULTS Gluc, com 1, bld RN Notified HISTORICAL RESULTS Blood specimen (specimen) 02/02/2013 6:25 AM CDT Silva Taylor MD LAB BLOOD ORDERABLES F inal Result Performing Organization Address [facility] de Phone Number HISTORICAL RESULTS * Blood tacrolimus (FK-506) drug level (02/02/2013 6:00 AM CDT) Tacrolimus 3.8 ng/ml HISTORICA L RESULTS Comment: Interpretive Data This test was developed using an analyte specific reagent. ??Its performance characteristics were determined by the [facility] in a manner consistent with CLIA requirements. This test has not been cleared or approved by the U.S. Food and Drug Administration. Current interpretive data was last revised on 2012. Blood specimen (specimen) 02/02/2013 6:00 AM CDT Ni Agarwal LAB BLOOD ORDERABLES Final R esult Performing Organization Address [facility] Co de Phone Number HISTORICAL RESULTS * (ABNORMAL) Blood glucose, POC (02/01/2013 11:43 PM CDT) Glucose, POC, bld 275(H) 65 - 199 mg/dl HISTORICAL RESULTS Gluc, com 1, bld RN Notified HISTORICAL RESULTS Blood specimen (specimen) 02/01/2013 11:43 PM CDT Result [facility] Silva Taylor MD LAB BLOOD ORDERABLES F inal Result Performing Organization Address [facility] Co de Phone Number HISTORICAL RESULTS * (ABNORMAL) Blood glucose, POC (02/01/2013 6:00 PM CDT) Glucose, POC, bld 297(H) 65 - 199 mg/dl HISTORICAL RESULTS Gluc, com 1, bld RN Notified HISTORICAL RESULTS Blood specimen (specimen) 02/01/2013 6:00 PM CDT Result [facility] Silva Taylor MD LAB BLOOD ORDERABLES F inal Result Performing Organization Address [facility] Co de Phone Number HISTORICAL RESULTS * Serum lipase (02/01/2013 12:26 PM CDT) Lip 18 0 - 99 Units/L HISTORICAL RESULTS Serum 02/01/2013 12:2 6 PM CDT Ni Agarwal LAB BLOOD ORDERABLES Final R esult HISTORICAL RESULTS * (ABNORMAL) Blood glucose, POC (02/01/2013 11:55 AM CDT) Glucose, POC, bld 335(H) 65 - 199 mg/dl HISTORICAL RESULTS Gluc, com 1, bld RN Notified HISTORICAL RESULTS Blood specimen (specimen) 02/01/2013 11:55 AM CDT Silva Taylor MD LAB BLOOD ORDERABLES F inal Result HISTORICAL RESULTS * Cytomegalovirus (CMV) PCR (02/01/2013 10:38 AM CDT) Blood specimen (specimen) (Unknown) 02/01/2013 10:38 AM CDT 02/01/2013 1:40 PM CDT Impressions HISTORICAL RESULTS - 02/03/2013 6:05 AM CDT This assay is based on quantitative real-time PCR. ??The primers used amplify a conserved 61 bp region of the DNA polymerase gene of human CMV. ??Based on data from the [facility], these primers do not amplify [...] developed and its performance characteristics determined by [facility]. ??It has not been cleared or approved by the U.S. Food and Drug Administration. ?? Current interpretive data was last revised on 2009. Narrative HISTORICAL RESULTS - 02/03/2013 6:05 AM CDT Negative (<200 copies/ml) us Historical Provider LAB MICROBIOLOGY - GENERA L ORDERABLES Final Result Performing Organization Address City/[facility] Co de Phone Number HISTORICAL RESULTS * (ABNORMAL) Plasma comprehensive metabolic panel (02/01/2013 10:38 AM CDT) Sodium 135 135 - 145 mmol/L HISTORICAL RESULTS Creatinine 0.72 0.70 - 1.30 mg/dl HISTORICAL RESULTS K, pl 4.0 3.3 - 4.9 mmol/L HISTORICAL RESULTS Calcium 8.2(L) 8.6 - 10.3 mg/dl HISTORICAL RESULTS Chloride 94(L) 97 - 110 mmol/L HISTORICAL RESULTS Protein, pl 5.1(L) 6.5 - 8.5 g/dl HISTORICAL RESULTS CO2 34(H) 22 - 32 mmol/L HISTORICAL RESULTS Alb 2.3(L) 3.6 - 5.0 g/dl HISTORICAL RESULTS A. gap 7 0 - 16 mmol/L HISTORICAL RESULTS Bilirubin 0.9 0.3 - 1.1 mg/dl HISTORICAL RESULTS Glucose 298(H) 65 - 199 mg/dl HISTORICAL RESULTS Alk phos 130(H) 38 - 126 Units/L HISTORICAL RESULTS BUN 17 8 - 25 mg/dl HISTORICAL RESULTS AST 23 11 - 47 Units/L HISTORICAL RESULTS ALT 23 7 - 53 Units/L HISTORICAL RESULTS Plasma 02/01/2013 10:3 8 AM CDT Ni Agarwal LAB BLOOD ORDERABLES Final R esult Performing Organization Address City/[facility]/ZIP Co de Phone Number HISTORICAL RESULTS * (ABNORMAL) Serum lactate dehydrogenase (LDH) (02/01/2013 10:38 AM CDT) Lactate dehydrogenase (LDH) 430(H) 100 - 250 Units/L HISTORICAL RESULTS Serum 02/01/2013 10:3 8 AM CDT Result [facility] Ni Agarwal LAB BLOOD ORDERABLES Final [facility] Performing Organization Address [facility] de Phone Number HISTORICAL RESULTS * Plasma partial thromboplastin time (PTT) (02/01/2013 10:38 AM CDT) APTT 29.4 25.0 - 37.0 seconds HISTORICAL RESULTS Comment: Interpretive Data Therapeutic heparin range:60.0 - 94.0 sec based on correlation with therapeutic heparin activity range of 0.3 -0.7 Units/mL. Current interpretive data was last revised on 2011. Plasma 02/01/2013 10:3 8 AM CDT Result [facility] Ni Rosswin LAB BLOOD ORDERABLES Final R [facility] Performing Organization Address [facility] de Phone Number HISTORICAL RESULTS * (ABNORMAL) Plasma phosphorus (02/01/2013 10:38 AM CDT) Phosphorus, pl 1.6(L) 2.3 - 4.3 mg/dl HISTORICAL RESULTS Plasma 02/01/2013 10:3 8 AM CDT Result [facility] Ni Rosswin LAB BLOOD ORDERABLES Final R [facility] Performing Organization Address [facility] de Phone Number HISTORICAL RESULTS * Plasma prothrombin time (PT) (02/01/2013 10:38 AM CDT) Prothrombin time (PT) 12.0 9.0 - 12.0 seconds HISTORICAL RESULTS INR 1.17 0.90 - 1.20 HISTORIC AL RESULTS Comment: Interpretive Data Inpatient therapeutic ranges* Atrial fibrillation ?2.0-3.0 INR Venous thrombo-embolism ?2.0-3.0 INR Bioprosthetic heart valve ?* Mechanical heart valve, bileaflet or tilting disk,aortic position ? 2.0-3.0 INR All other,or bileaflet or tilting disk, in mitral position ? 2.5-3.5 INR *See the pharmacy resource directory (PHRED) for an updated copy of the Tool Book at [email or web address] Current Interpretive Data was last revised 2012. Plasma 02/01/2013 10:3 8 AM CDT Ni Agarwal LAB BLOOD ORDERABLES Final R [facility] Performing Organization Address [facility] de Phone Number HISTORICAL RESULTS * Serum uric acid (02/01/2013 10:38 AM CDT) Uric acid 3.9 3.0 - 8.0 mg/dl HISTORICAL RESULTS Serum 02/01/2013 10:3 8 AM CDT Result [facility] Ni Agarwal LAB BLOOD ORDERABLES Final R [facility] Performing Organization Address [facility] de Phone Number HISTORICAL RESULTS * (ABNORMAL) Serum magnesium (02/01/2013 10:38 AM CDT) Magnesium 1.2(L) 1.4 - 2.5 mg/dl HISTORICAL RESULTS Serum 02/01/2013 10:3 8 AM CDT Ni Agarwal LAB BLOOD ORDERABLES Final R esult Performing Organization Address [facility] de Phone Number HISTORICAL RESULTS * (ABNORMAL) Blood cell count (CBC) (02/01/2013 10:38 AM CDT) WBC 17.8(H) 3.8 - 9.8 K/cumm HISTORICAL RESULTS RBC 2.79(L) 4.50 - 5.70 M/cumm HISTORICAL RESULTS Hgb 9.9(L) 13.8 - 17.2 g/dl HISTORICAL RESULTS Hct 29.7(L) 40.7 - 50.3 % HISTORICAL RESULTS MCV 106.4(H) 80.0 - 97.6 fl HISTORICAL RESULTS MCH 35.5(H) 26.7 - 33.7 pg HISTORICAL RESULTS MCHC 33.4 32.7 - 35.5 g/dl HISTORICAL RESULTS Rdw 12.6 11.8 - 14.6 % HISTORICAL RESULTS Platelets 64(L) 140 - 440 K/cumm HISTORICAL RESULTS MPV 11.0(H) 6.8 - 10.4 fl HISTORICAL RESULTS Blood specimen (specimen) 02/01/2013 10:38 AM CDT Ni Rosswin LAB BLOOD ORDERABLES Final R esult Performing Organization Address [facility] Co de Phone Number HISTORICAL RESULTS * Blood ABO, Rh, indirect ab screen (02/01/2013 10:38 AM CDT) Pathologist [facility] ABO, Rho(D) A Positive HISTORI RHODA RESULTS Ursula, indirect Negative HISTORICAL RESULTS Blood specimen (specimen) 02/01/2013 10:38 AM CDT Ni Agarwal LAB BLOOD ORDERABLES Final R esult Performing Organization Address [facility] Co de Phone Number HISTORICAL RESULTS * (ABNORMAL) Blood cell morphologic exam (02/01/2013 10:38 AM CDT) WBC counted 100 # of cells HISTORI RHODA RESULTS Neutrophils 76 44 - 80 % HISTORIC AL RESULTS Lymphocytes 2(L) 13 - 44 % HISTORIC AL RESULTS Monos 4 2 - 8 % HISTORICAL RESULTS Basophils 1 0 - 3 % HISTORICAL RESULTS Neutrophilic bands 17(H) 0 - 6 % HISTORICAL RESULTS Platelet estimate Decreased( A) Adequate HISTORICAL RESULTS RBC morphology Normal Normal HISTO RICAL RESULTS Blood specimen (specimen) 02/01/2013 10:38 AM CDT us Ni Agarwal LAB BLOOD ORDERABLES Final R esult HISTORICAL RESULTS * (ABNORMAL) Blood glucose, POC (02/01/2013 5:43 AM CDT) Glucose, POC, bld 220(H) 65 - 199 mg/dl HISTORICAL RESULTS Blood specimen (specimen) 02/01/2013 5:43 AM CDT Silva Taylor MD LAB BLOOD ORDERABLES F inal Result Performing Organization Address City/[facility]/ZIP Co de Phone Number HISTORICAL RESULTS * All Microbiology Report Section (02/01/2013 12:00 AM CDT) 02/01/2013 Narrative HISTORICAL RESULTS - 02/16/2013 10:36 AM CDT ? [facility] ?[address] [facility] [address] ?[place], [place] [address] ? Patient Name: ??BRI JONES ? Med Rec Number: [id number] ? Fin Number: ?[id number] ? Date: ?1965 ? Sex/Age: ? Male 47 years ? Admit Date: ?01/22/2013 ? Discharge Date: ? Doctor: ?Josué Del Valle ? Facility: ?[facility] ? Location: ?[id number] ?* Abnormal ??A Alert ??f Footnote ??^ Corrected ??L Low ??H High ?i Interp Data ??@ Ref Lab ? Chart Type:Cumulative ?* * * * MICROBIOLOGY - MOLECULAR TESTING * * * * ?PROCEDURE: Cytomegalovirus PCR, Blood ? SOURCE: Blood ? COLLECTED: 03/17/13 ??1038 ?BODY SITE: ? STARTED: 03/17/13 ??1340 ? FREE TEXT SOURCE: ? FINAL REPORT ? REPORTED: 03/19/13 0604 ? Negative (<200 copies/ml) ? ORDER COMMENTS ? (1)Testing performed by: [facility], [place], ? [place]. ??[address]. ?* * * ??Interpretive Results ??* * * ? (1)This assay is based on quantitative real-time PCR. ??The primers ? used amplify a conserved 61 bp region of the DNA polymerase gene ? of human CMV. ??Based on data from the [facility], these [...] its performance characteristics determined by . ? [facility]. ??It has not been cleared ? or approved by the U.S. Food and Drug Administration. ??Current ? interpretive data was last revised on 2009. ? Historical Provider LAB MICROBIOLOGY - GENERA L ORDERABLES Final Result Performing Organization Address [facility] de Phone Number HISTORICAL RESULTS * (ABNORMAL) Blood glucose, POC (01/31/2013 11:35 PM CDT) Glucose, POC, bld 269(H) 65 - 199 mg/dl HISTORICAL RESULTS Blood specimen (specimen) 01/31/2013 11:35 PM CDT Silva Taylor MD LAB BLOOD ORDERABLES F inal Result Performing Organization Address [facility] de Phone Number HISTORICAL RESULTS * (ABNORMAL) Blood glucose, POC (01/31/2013 4:37 PM CDT) Glucose, POC, bld 312(H) 65 - 199 mg/dl HISTORICAL RESULTS Gluc, com 1, bld RN Notified HISTORICAL RESULTS Blood specimen (specimen) 01/31/2013 4:37 PM CDT Silva Taylor MD LAB BLOOD ORDERABLES F inal Result HISTORICAL RESULTS * ABDOMINAL RADIOGRAPHY, FRONTAL (AP) (01/31/2013 2:17 PM CDT) Anatomical Region Laterality Modality N/A Radiographic Tiffany ging 01/31/2013 2:17 PM CDT Narrative 02/01/2013 7:45 AM CDT GURDEEP ROGEL M.D. FINAL REPORT ACC# ??Date Time ??Exam [id number] Jan 31, 2013 14:17:00 20608 Abdomen single view AP EXAMINATION: ?? SINGLE VIEW ABDOMEN IMPRESSION: ?? Comparison is made to prior study of January 23, 2013. A feeding tube is present with a weighted tip ending in the second portion of the duodenum. No obstruction is seen. No free intraperitoneal gas is seen. Small bilateral pleural effusions are seen with basilar atelectasis. The lung bases are not well evaluated on this image. Requested By: NI AGARWAL M.D. Dictated By: ?? GURDEEP ROGEL M.D. ??on Feb 01 2013 ??7:45A This document has been electronically signed by: GURDEEP ROGEL M.D. on Feb 01 2013 ??7:45A Procedure Note Provider, MD Shmuel - 03/22/2017 GURDEEP ROGEL M.D. FINAL REPORT ACC# Date Time Exam [id number] Jan 31, 2013 14:17:00 51305 Abdomen single view AP EXAMINATION: SINGLE VIEW ABDOMEN IMPRESSION: Comparison is made to prior study of January 23, 2013. A feeding tube is present with a weighted tip ending in the second portion of the duodenum. No obstruction is seen. No free intraperitoneal gas is seen. Small bilateral pleural effusions are seen with basilar atelectasis. The lung bases are not well evaluated on this image. Requested By: NI AGARWAL M.D. Dictated By: GURDEEP ROGEL M.D. on Feb 01 2013 7:45A This document has been electronically signed by: GURDEEP ROGEL M.D. on Feb 01 2013 7:45A Historical Provider IMG XR PROCEDURES Final R esult * (ABNORMAL) Blood glucose, POC (01/31/2013 12:04 PM CDT) [facility] Glucose, POC, bld >450(C) 65 - 199 mg/dl HISTORICAL RESULTS Blood specimen (specimen) 01/31/2013 12:04 PM CDT Silva Taylor MD LAB BLOOD ORDERABLES F inal Result Performing Organization Address [facility] Co de Phone Number HISTORICAL RESULTS * (ABNORMAL) Blood glucose, POC (01/31/2013 11:51 AM CDT) [facility] Glucose, POC, bld >450(C) 65 - 199 mg/dl HISTORICAL RESULTS Gluc, com 1, bld RN Notified HISTORICAL RESULTS Blood specimen (specimen) 01/31/2013 11:51 AM CDT Silva Taylor MD LAB BLOOD ORDERABLES F inal Result Performing Organization Address [facility] Co de Phone Number HISTORICAL RESULTS * (ABNORMAL) Blood cell count (CBC) (01/31/2013 11:00 AM CDT) [facility] WBC 14.5(H) 3.8 - 9.8 K/cumm HISTORICAL RESULTS RBC 2.72(L) 4.50 - 5.70 M/cumm HISTORICAL RESULTS Hgb 9.9(L) 13.8 - 17.2 g/dl HISTORICAL RESULTS Hct 29.3(L) 40.7 - 50.3 % HISTORICAL RESULTS MCV 107.9(H) 80.0 - 97.6 fl HISTORICAL RESULTS MCH 36.5(H) 26.7 - 33.7 pg HISTORICAL RESULTS MCHC 33.8 32.7 - 35.5 g/dl HISTORICAL RESULTS Rdw 13.5 11.8 - 14.6 % HISTORICAL RESULTS Platelets 59(L) 140 - 440 K/cumm HISTORICAL RESULTS MPV 10.7(H) 6.8 - 10.4 fl HISTORICAL RESULTS Blood specimen (specimen) 01/31/2013 11:00 AM CDT Ni Agarwal LAB BLOOD ORDERABLES Final R [facility] Performing Organization Address [facility] de Phone Number HISTORICAL RESULTS * (ABNORMAL) Blood cell morphologic exam (01/31/2013 11:00 AM CDT) WBC counted 100 # of cells HISTORI RHODA RESULTS Neutrophils 87(H) 44 - 80 % HISTORIC AL RESULTS Lymphocytes 8(L) 13 - 44 % HISTORIC AL RESULTS Monos 4 2 - 8 % HISTORICAL RESULTS Neutrophilic bands 1 0 - 6 % HISTORICAL RESULTS Platelet estimate Decreased (A) Adequate HISTORICAL RESULTS Echinocytes 3-7/HPF(A ) None Seen HISTORICAL RESULTS [place] bodies Present(A ) None Seen HISTORICAL RESULTS Macrocytosis > 15/HPF(A) None Seen HISTORICAL RESULTS Microcytosis 3-7/HPF(A ) None Seen HISTORICAL RESULTS [place]appenheimer bodies Present(A ) None Seen HISTORICAL RESULTS Polychromasia 3-7/HPF(A ) None Seen HISTORICAL RESULTS Teardrop cells 3-7/HPF(A ) None Seen HISTORICAL RESULTS Blood specimen (specimen) 01/31/2013 11:00 AM CDT Ni Agarwal LAB BLOOD ORDERABLES Final [facility] Performing Organization Address [facility] de Phone Number HISTORICAL RESULTS * Blood consistent result (01/31/2013 11:00 AM CDT) Pathologist [facility] Consistent result Consistent with previous results HISTORICAL RESULTS Blood specimen (specimen) 01/31/2013 11:00 AM CDT Ni Rosswin LAB BLOOD ORDERABLES Final R [facility] Performing Organization Address [facility] de Phone Number HISTORICAL RESULTS * (ABNORMAL) Plasma basic metabolic panel (01/31/2013 10:00 AM CDT) Pathologist [facility] Sodium 140 135 - 145 mmol/L HISTORICAL RESULTS K, pl 3.9 3.3 - 4.9 mmol/L HISTORICAL RESULTS Chloride 102 97 - 110 mmol/L HISTORICAL RESULTS CO2 34(H) 22 - 32 mmol/L HISTORICAL RESULTS A. gap 4 0 - 16 mmol/L HISTORICAL RESULTS Glucose 256(H) 65 - 199 mg/dl HISTORICAL RESULTS BUN 21 8 - 25 mg/dl HISTORICAL RESULTS Creatinine 0.74 0.70 - 1.30 mg/dl HISTORICAL RESULTS Calcium 8.0(L) 8.6 - 10.3 mg/dl HISTORICAL RESULTS Plasma 01/31/2013 10:0 0 AM CDT Result [facility] Ni Agarwal LAB BLOOD ORDERABLES Final R [facility] Performing Organization Address [facility] de Phone Number HISTORICAL RESULTS * (ABNORMAL) Plasma phosphorus (01/31/2013 10:00 AM CDT) Phosphorus, pl 1.1(L) 2.3 - 4.3 mg/dl HISTORICAL RESULTS Plasma 01/31/2013 10:0 0 AM CDT Result [facility] Ni Agarwal LAB BLOOD ORDERABLES Final R [facility] Performing Organization Address [facility] de Phone Number HISTORICAL RESULTS * Serum magnesium (01/31/2013 10:00 AM CDT) Magnesium 1.9 1.4 - 2.5 mg/dl HISTORICAL RESULTS Serum 01/31/2013 10:0 0 AM CDT Result [facility] Ni Agarwal LAB BLOOD ORDERABLES Final [facility] Performing Organization Address [facility] de Phone Number HISTORICAL RESULTS * Serum vancomycin drug level (01/31/2013 10:00 AM CDT) Vancomycin 14.6 mcg/ml HISTORICA L RESULTS Serum 01/31/2013 10:0 0 AM CDT us Ni Agarwal LAB BLOOD ORDERABLES Final R esult Performing Organization Address [facility] de Phone Number HISTORICAL RESULTS * Blood tacrolimus (FK-506) drug level (01/31/2013 10:00 AM CDT) Tacrolimus 8.5 ng/ml HISTORICA L RESULTS Comment: Interpretive Data This test was developed using an analyte specific reagent. ??Its performance characteristics were determined by the [facility] in a manner consistent with CLIA requirements. This test has not been cleared or approved by the U.S. Food and Drug Administration. Current interpretive data was last revised on 2012. Blood specimen (specimen) 01/31/2013 10:00 AM CDT Ni Agarwal LAB BLOOD ORDERABLES Final R esult Performing Organization Address [facility] Co de Phone Number HISTORICAL RESULTS * (ABNORMAL) Blood glucose, POC (01/31/2013 7:43 AM CDT) Glucose, POC, bld 278(H) 65 - 199 mg/dl HISTORICAL RESULTS Blood specimen (specimen) 01/31/2013 7:43 AM CDT Silva Taylor MD LAB BLOOD ORDERABLES F inal Result Performing Organization Address [facility] Co de Phone Number HISTORICAL RESULTS * (ABNORMAL) Blood glucose, POC (01/31/2013 5:57 AM CDT) Glucose, POC, bld 312(H) 65 - 199 mg/dl HISTORICAL RESULTS Blood specimen (specimen) 01/31/2013 5:57 AM CDT Silva Taylor MD LAB BLOOD ORDERABLES F inal Result Performing Organization Address [facility] Co de Phone Number HISTORICAL RESULTS * (ABNORMAL) Blood glucose, POC (01/31/2013 4:05 AM CDT) Glucose, POC, bld 344(H) 65 - 199 mg/dl HISTORICAL RESULTS Blood specimen (specimen) 01/31/2013 4:05 AM CDT Silva Taylor MD LAB BLOOD ORDERABLES F inal Result HISTORICAL RESULTS * (ABNORMAL) Blood glucose, POC (01/31/2013 2:18 AM CDT) Glucose, POC, bld 411(H) 65 - 199 mg/dl HISTORICAL RESULTS Blood specimen (specimen) 01/31/2013 2:18 AM CDT Silva Taylor MD LAB BLOOD ORDERABLES F inal Result Performing Organization Address [facility] Co de Phone Number HISTORICAL RESULTS * (ABNORMAL) Blood glucose, POC (01/30/2013 11:55 PM CDT) Glucose, POC, bld >450(C) 65 - 199 mg/dl HISTORICAL RESULTS Gluc, com 1, bld RN Notified HISTORICAL RESULTS Blood specimen (specimen) 01/30/2013 11:55 PM CDT Silva Taylor MD LAB BLOOD ORDERABLES F inal Result Performing Organization Address [facility] Co de Phone Number HISTORICAL RESULTS * (ABNORMAL) Blood glucose, POC (01/30/2013 7:55 PM CDT) Glucose, POC, bld 412(H) 65 - 199 mg/dl HISTORICAL RESULTS Gluc, com 1, bld RN Notified HISTORICAL RESULTS Blood specimen (specimen) 01/30/2013 7:55 PM CDT Silva Taylor MD LAB BLOOD ORDERABLES F inal Result HISTORICAL RESULTS * (ABNORMAL) Blood glucose, POC (01/30/2013 6:16 PM CDT) Glucose, POC, bld 358(H) 65 - 199 mg/dl HISTORICAL RESULTS Gluc, com 1, bld RN Notified HISTORICAL RESULTS Blood specimen (specimen) 01/30/2013 6:16 PM CDT Silva Taylor MD LAB BLOOD ORDERABLES F inal Result Performing Organization Address [facility] de Phone Number HISTORICAL RESULTS * (ABNORMAL) Blood glucose, POC (01/30/2013 2:18 PM CDT) Glucose, POC, bld 357(H) 65 - 199 mg/dl HISTORICAL RESULTS Gluc, com 1, bld RN Notified HISTORICAL RESULTS Blood specimen (specimen) 01/30/2013 2:18 PM CDT Silva Taylor MD LAB BLOOD ORDERABLES F inal Result Performing Organization Address [facility] de Phone Number HISTORICAL RESULTS * (ABNORMAL) Blood glucose, POC (01/30/2013 12:20 PM CDT) Glucose, POC, bld 306(H) 65 - 199 mg/dl HISTORICAL RESULTS Gluc, com 1, bld RN Notified HISTORICAL RESULTS Blood specimen (specimen) 01/30/2013 12:20 PM CDT Silva Taylor MD LAB BLOOD ORDERABLES F inal Result Performing Organization Address [facility] Phone Number HISTORICAL RESULTS * Vancomycin-resistant enterococcus (VRE) surveillance screen (01/30/2013 12:00 PM CDT) Stool (Unknown) 01/30/2013 1 2:00 PM CDT 01/31/2013 7:14 AM CDT Impressions HISTORICAL RESULTS - 02/02/2013 6:28 AM CDT This test is for Infection prevention surveillance; no charge to patient. Current interpretive data was last revised on 2011. Narrative HISTORICAL RESULTS - 02/02/2013 6:28 AM CDT Enterococcus species, vancomycin resistant Historical Provider LAB MICROBIOLOGY - GENERA L ORDERABLES Final Result Performing Organization Address [facility] Co de Phone Number HISTORICAL RESULTS * Clostridium difficile toxin (01/30/2013 12:00 PM CDT) Stool (Unknown) 01/30/2013 1 2:00 PM CDT 01/30/2013 2:02 PM CDT Narrative HISTORICAL RESULTS - 01/31/2013 5:42 AM CDT Negative for: Clostridium difficile toxin. us Historical Provider LAB MICROBIOLOGY - GENERA L ORDERABLES Final Result HISTORICAL RESULTS * (ABNORMAL) Blood glucose, POC (01/30/2013 8:20 AM CDT) Glucose, POC, bld >450(C) 65 - 199 mg/dl HISTORICAL RESULTS Gluc, com 1, bld RN Notified HISTORICAL RESULTS Blood specimen (specimen) 01/30/2013 8:20 AM CDT Silva Taylor MD LAB BLOOD ORDERABLES F inal Result Performing Organization Address [facility] Co de Phone Number HISTORICAL RESULTS * Cytomegalovirus (CMV) PCR (01/30/2013 7:50 AM CDT) Blood specimen (specimen) (Unknown) 01/30/2013 7:50 AM CDT 01/30/2013 11:28 AM CDT Impressions HISTORICAL RESULTS - 01/31/2013 6:58 AM CDT This assay is based on quantitative real-time PCR. ??The primers used amplify a conserved 61 bp region of the DNA polymerase gene of human CMV. ??Based on data from the [facility], these primers do not [...] developed and its performance characteristics determined by [facility]. ??It has not been cleared or approved by the U.S. Food and Drug Administration. ?? Current interpretive data was last revised on 2009. Narrative HISTORICAL RESULTS - 01/31/2013 6:58 AM CDT Negative (<200 copies/ml) us Historical Provider LAB MICROBIOLOGY - GENERA L ORDERABLES Final Result Performing Organization Address [facility] de Phone Number HISTORICAL RESULTS * (ABNORMAL) Serum vancomycin, trough drug level (01/30/2013 7:50 AM CDT) [facility] Vancomycin, trough 26.5(C) 10.0 - 20.9 mcg/ml HISTORICAL RESULTS Comment: Interpretive Data Therapeutic Range: ?? Uncomplicated skin and soft tissue infections: 10-20 mcg/mL ?? All other infections: ??15-20 mcg/mL Current interpretive data was last revised on 12. Serum 01/30/2013 7:50 AM CDT Ni GAMA BLOOD ORDERABLES Final R esult Performing Organization Address [facility] Co de Phone Number HISTORICAL RESULTS * Critical result call back (01/30/2013 7:50 AM CDT) Date notified 01/30/2013 HISTO RICAL RESULTS Time notified 1140 HISTOR ICAL RESULTS Test name Vancomycin Tr HISTOR ICAL RESULTS Called to Selwyn Carter HISTO RICAL RESULTS Credentials RN HISTORIC AL RESULTS Called by Waqar HISTORICAL RESULTS No specimen 01/30/2013 7:50 AM CDT Ni Agarwal LAB BLOOD ORDERABLES Final R [facility] Performing Organization Address [facility] de Phone Number HISTORICAL RESULTS * (ABNORMAL) Plasma basic metabolic panel (01/30/2013 7:50 AM CDT) Sodium 137 135 - 145 mmol/L HISTORICAL RESULTS K, pl 3.9 3.3 - 4.9 mmol/L HISTORICAL RESULTS Chloride 101 97 - 110 mmol/L HISTORICAL RESULTS CO2 29 22 - 32 mmol/L HISTORICAL RESULTS A. gap 7 0 - 16 mmol/L HISTORICAL RESULTS Glucose 365(H) 65 - 199 mg/dl HISTORICAL RESULTS BUN 22 8 - 25 mg/dl HISTORICAL RESULTS Creatinine 0.83 0.70 - 1.30 mg/dl HISTORICAL RESULTS Calcium 8.2(L) 8.6 - 10.3 mg/dl HISTORICAL RESULTS Plasma 01/30/2013 7:50 AM CDT Ni Agarwal LAB BLOOD ORDERABLES Final R [facility] Performing Organization Address [facility] de Phone Number HISTORICAL RESULTS * (ABNORMAL) Plasma phosphorus (01/30/2013 7:50 AM CDT) Phosphorus, pl 1.9(L) 2.3 - 4.3 mg/dl HISTORICAL RESULTS Plasma 01/30/2013 7:50 AM CDT Ni Agarwal LAB BLOOD ORDERABLES Final R [facility] Performing Organization Address [facility] de Phone Number HISTORICAL RESULTS * Serum magnesium (01/30/2013 7:50 AM CDT) Magnesium 1.5 1.4 - 2.5 mg/dl HISTORICAL RESULTS Serum 01/30/2013 7:50 AM CDT Ni Agarwal LAB BLOOD ORDERABLES Final [facility] Performing Organization Address [facility] de Phone Number HISTORICAL RESULTS * (ABNORMAL) Blood cell count (CBC) (01/30/2013 7:50 AM CDT) [facility] WBC 13.0(H) 3.8 - 9.8 K/cumm HISTORICAL RESULTS RBC 2.74(L) 4.50 - 5.70 M/cumm HISTORICAL RESULTS Hgb 10.2(L) 13.8 - 17.2 g/dl HISTORICAL RESULTS Hct 29.5(L) 40.7 - 50.3 % HISTORICAL RESULTS MCV 107.9(H) 80.0 - 97.6 fl HISTORICAL RESULTS MCH 37.3(H) 26.7 - 33.7 pg HISTORICAL RESULTS MCHC 34.6 32.7 - 35.5 g/dl HISTORICAL RESULTS Rdw 13.7 11.8 - 14.6 % HISTORICAL RESULTS Platelets 50(L) 140 - 440 K/cumm HISTORICAL RESULTS MPV 10.6(H) 6.8 - 10.4 fl HISTORICAL RESULTS Blood specimen (specimen) 01/30/2013 7:50 AM CDT Ni Agarwal LAB BLOOD ORDERABLES Final [facility] Performing Organization Address [facility] de Phone Number HISTORICAL RESULTS * (ABNORMAL) Blood cell morphologic exam (01/30/2013 7:50 AM CDT) [facility] WBC counted 100 # of cells HISTORI RHODA RESULTS Neutrophils 77 44 - 80 % HISTORIC AL RESULTS Lymphocytes 7(L) 13 - 44 % HISTORIC AL RESULTS Monos 4 2 - 8 % HISTORICAL RESULTS Eosinophils 2 0 - 6 % HISTORIC AL RESULTS Neutrophilic bands 10(H) 0 - 6 % HISTORICAL RESULTS Platelet estimate Decreased (A) Adequate HISTORICAL RESULTS Echinocytes 3-7/HPF(A ) None Seen HISTORICAL RESULTS [place] bodies Present(A ) None Seen HISTORICAL RESULTS Macrocytosis > 15/HPF(A) None Seen HISTORICAL RESULTS Microcytosis 3-7/HPF(A ) None Seen HISTORICAL RESULTS Polychromasia 3-7/HPF(A ) None Seen HISTORICAL RESULTS Blood specimen (specimen) 01/30/2013 7:50 AM CDT Ni Bansal Agarwal LAB BLOOD ORDERABLES Final R [facility] Performing Organization Address [facility] Co de Phone Number HISTORICAL RESULTS * Blood tacrolimus (FK-506) drug level (01/30/2013 6:00 AM CDT) Tacrolimus 13.7 ng/ml HISTORICA L RESULTS Comment: Interpretive Data This test was developed using an analyte specific reagent. ??Its performance characteristics were determined by the [facility] in a manner consistent with CLIA requirements. This test has not been cleared or approved by the U.S. Food and Drug Administration. Current interpretive data was last revised on 2012. Blood specimen (specimen) 01/30/2013 6:00 AM CDT [facility] Final [facility] Performing Organization Address City/[facility] Co de Phone Number HISTORICAL RESULTS * All Microbiology Report Section (01/30/2013 12:00 AM CDT) 01/30/2013 Narrative HISTORICAL RESULTS - 02/02/2013 10:26 AM CDT ? [facility] ?[address] [facility] [address] ?[place], [place] [address] ? Patient Name: ??BRI JONES ? Med Rec Number: [id number] ? Fin Number: ?[id number] ? Date: ?1965 ? Sex/Age: ? Male 47 years ? Admit Date: ?01/22/2013 ? Discharge Date: ? Doctor: ?DiPersio, Josué F ? Facility: ?[facility] ? Location: ?6900 [id number] 01 ?* Abnormal ??A Alert ??f Footnote ??^ Corrected ??L Low ??H High ?i Interp Data ??@ Ref Lab ? Chart Type:Cumulative ?* * * * MICROBIOLOGY - GASTROINTESTINAL * * * * ?PROCEDURE: VRE Surveillance Culture ? SOURCE: Stool ? COLLECTED: 03/15/13 ??1200 ?BODY SITE: ? STARTED: 03/16/13 ??0718 ? FREE TEXT SOURCE: ? FINAL REPORT ? REPORTED: 02/02/13627 ? Enterococcus species, vancomycin resistant ?* * * ??Interpretive Results ??* * * ? (1)This test is for Infection prevention surveillance; no charge to ? patient.Current interpretive data was last revised on 2011. ? us Historical Provider MD LAB MICROBIOLOGY - GENERA L ORDERABLES Final Result HISTORICAL RESULTS * All Microbiology Report Section (01/30/2013 12:00 AM CDT) 01/30/2013 Narrative HISTORICAL RESULTS - 02/03/2013 6:34 AM CDT ? [facility] ?[address] [facility] [address] ?[place], [place] [address] ? Patient Name: ??BRI JONES ? Med Rec Number: [id number] ? Fin Number: ?[id number] ? Date: ?1965 ? Sex/Age: ? Male 47 years ? Admit Date: ?01/22/2013 ? Discharge Date: ? Doctor: ?DiPersio, Josué F ? Facility: ?[facility] ? Location: ?6900 [address] 01 ?* Abnormal ??A Alert ??f Footnote ??^ Corrected ??L Low ??H High ?i Interp Data ??@ Ref Lab ? Chart Type:Cumulative ?* * * * MICROBIOLOGY - MOLECULAR TESTING * * * * ?PROCEDURE: Cytomegalovirus PCR, Blood ? SOURCE: Blood ? COLLECTED: 03/15/13 ??0750 ?BODY SITE: ? STARTED: 03/15/13 ??1128 ? FREE TEXT SOURCE: ? FINAL REPORT ? REPORTED: 01/31/13 0658 ? Negative (<200 copies/ml) ? ORDER COMMENTS ? (1)Testing performed by: [facility], [place], ? [place]. ??[address]. ?* * * ??Interpretive Results ??* * * ? (1)This assay is based on quantitative real-time PCR. ??The primers ? used amplify a conserved 61 bp region of the DNA polymerase gene ? of human CMV. ??Based on data from the [facility], these [...] its performance characteristics determined by [facility]. ??It has not been cleared ? or approved by the U.S. Food and Drug Administration. ??Current ? interpretive data was last revised on 2009. ? us Historical Provider MD LAB MICROBIOLOGY - GENERA L ORDERABLES Final Result HISTORICAL RESULTS * All Microbiology Report Section (01/30/2013 12:00 AM CDT) 01/30/2013 Narrative HISTORICAL RESULTS - 01/31/2013 6:21 AM CDT ? [facility] ?[address] [facility] [address] ?[place], [place] [address] ? Patient Name: ??BRI JONES ? Med Rec Number: [id number] ? Fin Number: ?[id number] ? Date: ?1965 ? Sex/Age: ? Male 47 years ? Admit Date: ?01/22/2013 ? Discharge Date: ? Doctor: ?DiPersio, Josué F ? Facility: ?[facility] ? Location: ?6900 [address] 01 ?* Abnormal ??A Alert ??f Footnote ??^ Corrected ??L Low ??H High ?i Interp Data ??@ Ref Lab ? Chart Type:Cumulative ?* * * * MICROBIOLOGY - GASTROINTESTINAL * * * * ?PROCEDURE: Clostridium difficile Toxin ? SOURCE: Stool ? COLLECTED: 03/15/13 ??1200 ?BODY SITE: ? STARTED: 03/15/13 ??1402 ? FREE TEXT SOURCE: ? FINAL REPORT ? REPORTED: 01/31/13 0542 ? Negative for: Clostridium difficile toxin. us Historical Provider MD LAB MICROBIOLOGY - GENERA L ORDERABLES Final Result Performing Organization Address [facility] de Phone Number HISTORICAL RESULTS * (ABNORMAL) Blood glucose, POC (01/29/2013 9:20 PM CDT) Glucose, POC, bld 342(H) 65 - 199 mg/dl HISTORICAL RESULTS Blood specimen (specimen) 01/29/2013 9:20 PM CDT Silva Taylor MD LAB BLOOD ORDERABLES F inal Result Performing Organization Address [facility] de Phone Number HISTORICAL RESULTS * (ABNORMAL) Blood glucose, POC (01/29/2013 4:40 PM CDT) Glucose, POC, bld 289(H) 65 - 199 mg/dl HISTORICAL RESULTS Gluc, com 1, bld RN Notified HISTORICAL RESULTS Gluc, com 2, bld Venous HISTORICAL RESULTS Blood specimen (specimen) 01/29/2013 4:40 PM CDT Silva Taylor MD LAB BLOOD ORDERABLES F inal Result Performing Organization Address [facility] de Phone Number HISTORICAL RESULTS * Blood glucose, POC (01/29/2013 11:50 AM CDT) Glucose, POC, bld 172 65 - 199 mg/dl HISTORICAL RESULTS Gluc, com 1, bld RN Notified HISTORICAL RESULTS Gluc, com 2, bld Venous HISTORICAL RESULTS Blood specimen (specimen) 01/29/2013 11:50 AM CDT Silva Taylor MD LAB BLOOD ORDERABLES F inal Result Performing Organization Address [facility] Co de Phone Number HISTORICAL RESULTS * (ABNORMAL) Plasma basic metabolic panel (01/29/2013 11:08 AM CDT) CO2 27 22 - 32 mmol/L HISTORICAL RESULTS Sodium 137 135 - 145 mmol/L HISTORICAL RESULTS A. gap 9 0 - 16 mmol/L HISTORICAL RESULTS K, pl 3.7 3.3 - 4.9 mmol/L HISTORICAL RESULTS Glucose 169 65 - 199 mg/dl HISTORICAL RESULTS Chloride 101 97 - 110 mmol/L HISTORICAL RESULTS BUN 22 8 - 25 mg/dl HISTORICAL RESULTS Creatinine 0.86 0.70 - 1.30 mg/dl HISTORICAL RESULTS Calcium 7.9(L) 8.6 - 10.3 mg/dl HISTORICAL RESULTS Plasma 01/29/2013 11:0 8 AM CDT Ni Agarwal LAB BLOOD ORDERABLES Final R esult Performing Organization Address [facility] de Phone Number HISTORICAL RESULTS * (ABNORMAL) Plasma phosphorus (01/29/2013 11:08 AM CDT) Phosphorus, pl 1.5(L) 2.3 - 4.3 mg/dl HISTORICAL RESULTS Plasma 01/29/2013 11:0 8 AM CDT Ni Agarwal LAB BLOOD ORDERABLES Final R esult Performing Organization Address City/[facility] Co de Phone Number HISTORICAL RESULTS * Serum magnesium (01/29/2013 11:08 AM CDT) Magnesium 1.6 1.4 - 2.5 mg/dl HISTORICAL RESULTS Serum 01/29/2013 11:0 8 AM CDT Ni Agarwal LAB BLOOD ORDERABLES Final R esult Performing Organization Address [facility] Co de Phone Number HISTORICAL RESULTS * (ABNORMAL) Blood cell count (CBC) (01/29/2013 11:00 AM CDT) WBC 14.5(H) 3.8 - 9.8 K/cumm HISTORICAL RESULTS RBC 2.91(L) 4.50 - 5.70 M/cumm HISTORICAL RESULTS Hgb 10.8(L) 13.8 - 17.2 g/dl HISTORICAL RESULTS Hct 31.1(L) 40.7 - 50.3 % HISTORICAL RESULTS MCV 106.8(H) 80.0 - 97.6 fl HISTORICAL RESULTS MCH 37.1(H) 26.7 - 33.7 pg HISTORICAL RESULTS MCHC 34.7 32.7 - 35.5 g/dl HISTORICAL RESULTS Rdw 12.9 11.8 - 14.6 % HISTORICAL RESULTS Platelets 45(C) 140 - 440 K/cumm HISTORICAL RESULTS Comment:{BMT patient result; not critical.} MPV 10.3 6.8 - 10.4 fl HISTORICAL RESULTS Blood specimen (specimen) 01/29/2013 11:00 AM CDT Result [facility] Ni D Agarwal LAB BLOOD ORDERABLES Final [facility] Performing Organization Address [facility] de Phone Number HISTORICAL RESULTS * (ABNORMAL) Blood cell morphologic exam (01/29/2013 11:00 AM CDT) WBC counted 100 # of cells HISTORI RHODA RESULTS Neutrophils 81(H) 44 - 80 % HISTORIC AL RESULTS Lymphocytes 6(L) 13 - 44 % HISTORIC AL RESULTS Monos 8 2 - 8 % HISTORICAL RESULTS Eosinophils 1 0 - 6 % HISTORIC AL RESULTS Neutrophilic bands 4 0 - 6 % HISTORICAL RESULTS Platelet estimate Decreased (A) Adequate HISTORICAL RESULTS Anisocytosis Trace None Seen HISTORI RHODA RESULTS Blood specimen (specimen) 01/29/2013 11:00 AM CDT Ni D Agarwal LAB BLOOD ORDERABLES Final R esult Performing Organization Address [facility] Co de Phone Number HISTORICAL RESULTS * Blood consistent result (01/29/2013 11:00 AM CDT) Consistent result Consistent with previous results HISTORICAL RESULTS Blood specimen (specimen) 01/29/2013 11:00 AM CDT Ni Agarwal LAB BLOOD ORDERABLES Final R esult Performing Organization Address City/[facility]/ZIP Co de Phone Number HISTORICAL RESULTS * (ABNORMAL) Blood glucose, POC (01/29/2013 7:30 AM CDT) Glucose, POC, bld 316(H) 65 - 199 mg/dl HISTORICAL RESULTS Gluc, com 1, bld RN Notified HISTORICAL RESULTS Gluc, com 2, bld Venous HISTORICAL RESULTS Blood specimen (specimen) 01/29/2013 7:30 AM CDT Silva Taylor MD LAB BLOOD ORDERABLES F inal Result Performing Organization Address [facility] Co de Phone Number HISTORICAL RESULTS * Blood tacrolimus (FK-506) drug level (01/29/2013 6:05 AM CDT) Tacrolimus 19.1 ng/ml HISTORICA L RESULTS Comment: Interpretive Data This test was developed using an analyte specific reagent. ??Its performance characteristics were determined by the [facility] in a manner consistent with CLIA requirements. This test has not been cleared or approved by the U.S. Food and Drug Administration. Current interpretive data was last revised on 2012. Blood specimen (specimen) 01/29/2013 6:05 AM CDT Ni Agarwal LAB BLOOD ORDERABLES Final R esult Performing Organization Address City/[facility]/ZIP Co de Phone Number HISTORICAL RESULTS * Blood glucose, POC (01/28/2013 9:03 PM CDT) Glucose, POC, bld 172 65 - 199 mg/dl HISTORICAL RESULTS Gluc, com 1, bld RN Notified HISTORICAL RESULTS Blood specimen (specimen) 01/28/2013 9:03 PM CDT Silva Taylor MD LAB BLOOD ORDERABLES F inal Result Performing Organization Address [facility] de Phone Number HISTORICAL RESULTS * Blood glucose, POC (01/28/2013 4:42 PM CDT) Glucose, POC, bld 162 65 - 199 mg/dl HISTORICAL RESULTS Blood specimen (specimen) 01/28/2013 4:42 PM CDT Silva Taylor MD LAB BLOOD ORDERABLES F inal Result Performing Organization Address [facility] de Phone Number HISTORICAL RESULTS * (ABNORMAL) Blood glucose, POC (01/28/2013 11:50 AM CDT) Glucose, POC, bld 211(H) 65 - 199 mg/dl HISTORICAL RESULTS Blood specimen (specimen) 01/28/2013 11:50 AM CDT Silva Taylor MD LAB BLOOD ORDERABLES F inal Result Performing Organization Address [facility] de Phone Number HISTORICAL RESULTS * NJ Tube Placement (01/28/2013 11:16 AM CDT) Anatomical Region Laterality Modality Body N/A X-Ray Angiograph y 01/28/2013 11:1 6 AM CDT Narrative 01/28/2013 1:20 PM CDT ABHIJEET CASTILLO M.D. HILARIA DAVALOS, FINAL REPORT The radiology attending physician has personally reviewed this study, and has reviewed and/or edited this written report and agrees with it. ACC# ??Date Time ??Exam [id number] Jan 28, 2013 11:16:00 [id number] Long GI tube [id number] Jan 28, 2013 11:16:00 51092 Intro GI tube EXAMINATION: ?Nasoenteric Feeding Tube Placement Date: 01/28/2013 History: Pancreatitis; feeding difficulty Technique: ??The right nare was anesthetized with viscous lidocaine and an 8 Fr. nasoenteric feeding tube was advanced under fluoroscopic guidance into the duodenum. ??Tube positioning was confirmed with injection of water soluble contrast. ??The patient tolerated the procedure well without difficulty. Findings: ??An image obtained at the end of the procedure shows the tip of the catheter at the junction of the third and fourth portions of the duodenum, at the level of the ligament of Treitz. ??The attending radiologist, Dr. Abhijeet Castillo, was present during the entire procedure. ?? IMPRESSION: ?Successful nasoenteric feeding tube placement. ?? Requested By: NI AGARWAL M.D. Dictated By: ?? HILARIA DAVALOS, ?? on Jan 28 2013 12:06P This document has been electronically signed by: ABHIJEET CASTILLO M.D. on Jan 28 2013 ??1:20P Procedure Note Provider, MD Shmuel - 03/22/2017 ABHIJEET CASTILLO M.D. HILARIA DAVALOS, FINAL REPORT The radiology attending physician has personally reviewed this study, and has reviewed and/or edited this written report and agrees with it. ACC# Date Time Exam [id number] Jan 28, 2013 11:16:00 [id number] Long GI tube [id number] Jan 28, 2013 11:16:00 80828 Intro GI tube EXAMINATION: Nasoenteric Feeding Tube Placement Date: 01/28/2013 History: Pancreatitis; feeding difficulty Technique: The right nare was anesthetized with viscous lidocaine and an 8 Fr. nasoenteric feeding tube was advanced under fluoroscopic guidance into the duodenum. Tube positioning was confirmed with injection of water soluble contrast. The patient tolerated the procedure well without difficulty. Findings: An image obtained at the end of the procedure shows the tip of the catheter at the junction of the third and fourth portions of the duodenum, at the level of the ligament of Treitz. The attending radiologist, Dr. Abhijeet Castillo, was present during the entire procedure. IMPRESSION: Successful nasoenteric feeding tube placement. Requested By: NI AGARWAL M.D. Dictated By: HILARIA DAVALOS on Jan 28 2013 12:06P This document has been electronically signed by: ABHIJEET CASTILLO M.D. on Jan 28 2013 1:20P Historical Provider MD [facility] IR PROCEDURES Final R esult * NJ Tube Placement (01/28/2013 11:16 AM CDT) Anatomical Region Laterality Modality Body N/A X-Ray Angiograph y 01/28/2013 11:1 6 AM CDT Narrative 01/28/2013 1:20 PM CDT ABHIJEET CASTILLO M.D. HILARIA DAVALOS, FINAL REPORT The radiology attending physician has personally reviewed this study, and has reviewed and/or edited this written report and agrees with it. ACC# ??Date Time ??Exam [id number] Jan 28, 2013 11:16:00 [id number] Long GI tube [id number] Jan 28, 2013 11:16:00 80785 Intro GI tube EXAMINATION: ?Nasoenteric Feeding Tube Placement Date: 01/28/2013 History: Pancreatitis; feeding difficulty Technique: ??The right nare was anesthetized with viscous lidocaine and an 8 Fr. nasoenteric feeding tube was advanced under fluoroscopic guidance into the duodenum. ??Tube positioning was confirmed with injection of water soluble contrast. ??The patient tolerated the procedure well without difficulty. Findings: ??An image obtained at the end of the procedure shows the tip of the catheter at the junction of the third and fourth portions of the duodenum, at the level of the ligament of Treitz. ??The attending radiologist, Dr. Abhijeet Castillo, was present during the entire procedure. ?? IMPRESSION: ?Successful nasoenteric feeding tube placement. ?? Requested By: NI AGARWAL M.D. Dictated By: ?? HILARIA DAVALOS, ?? on Jan 28 2013 12:06P This document has been electronically signed by: ABHIJEET CASTILLO M.D. on Jan 28 2013 ??1:20P Procedure Note Provider, MD Shmuel - 03/22/2017 ABHIJEET CASTILLO M.D. HILARIA DAVALOS, FINAL REPORT The radiology attending physician has personally reviewed this study, and has reviewed and/or edited this written report and agrees with it. ACC# Date Time Exam [id number] Jan 28, 2013 11:16:00 [id number] Long GI tube [id number] Jan 28, 2013 11:16:00 98206 Intro GI tube EXAMINATION: Nasoenteric Feeding Tube Placement Date: 01/28/2013 History: Pancreatitis; feeding difficulty Technique: The right nare was anesthetized with viscous lidocaine and an 8 Fr. nasoenteric feeding tube was advanced under fluoroscopic guidance into the duodenum. Tube positioning was confirmed with injection of water soluble contrast. The patient tolerated the procedure well without difficulty. Findings: An image obtained at the end of the procedure shows the tip of the catheter at the junction of the third and fourth portions of the duodenum, at the level of the ligament of Treitz. The attending radiologist, Dr. Abhijeet Castillo, was present during the entire procedure. IMPRESSION: Successful nasoenteric feeding tube placement. Requested By: NI AGARWAL M.D. Dictated By: HILARIA DAVALOS on Jan 28 2013 12:06P This document has been electronically signed by: ABHIJEET CASTILLO M.D. on Jan 28 2013 1:20P us Historical Provider [facility] IR PROCEDURES Final R esult * (ABNORMAL) Blood glucose, POC (01/28/2013 8:04 AM CDT) Pathologist [facility] Glucose, POC, bld 231(H) 65 - 199 mg/dl HISTORICAL RESULTS Blood specimen (specimen) 01/28/2013 8:04 AM CDT Silva Taylor MD LAB BLOOD ORDERABLES F inal Result HISTORICAL RESULTS * (ABNORMAL) Plasma comprehensive metabolic panel (01/28/2013 5:30 AM CDT) Pathologist [facility] Sodium 139 135 - 145 mmol/L HISTORICAL RESULTS K, pl 3.4 3.3 - 4.9 mmol/L HISTORICAL RESULTS Chloride 101 97 - 110 mmol/L HISTORICAL RESULTS CO2 26 22 - 32 mmol/L HISTORICAL RESULTS A. gap 12 0 - 16 mmol/L HISTORICAL RESULTS Glucose 194 65 - 199 mg/dl HISTORICAL RESULTS BUN 22 8 - 25 mg/dl HISTORICAL RESULTS Creatinine 0.90 0.70 - 1.30 mg/dl HISTORICAL RESULTS Calcium 8.2(L) 8.6 - 10.3 mg/dl HISTORICAL RESULTS Protein, pl 5.1(L) 6.5 - 8.5 g/dl HISTORICAL RESULTS Alb 2.4(L) 3.6 - 5.0 g/dl HISTORICAL RESULTS Bilirubin 1.2(H) 0.3 - 1.1 mg/dl HISTORICAL RESULTS Alk phos 113 38 - 126 Units/L HISTORICAL RESULTS AST 30 11 - 47 Units/L HISTORICAL RESULTS ALT 30 7 - 53 Units/L HISTORICAL RESULTS Plasma 01/28/2013 5:30 AM CDT Result [facility] Ni Agarwal LAB BLOOD ORDERABLES Final R esult Performing Organization Address [facility] de Phone Number HISTORICAL RESULTS * (ABNORMAL) Serum lactate dehydrogenase (LDH) (01/28/2013 5:30 AM CDT) Lactate dehydrogenase (LDH) 676(H) 100 - 250 Units/L HISTORICAL RESULTS Serum 01/28/2013 5:30 AM CDT Result [facility] Ni Agarwal LAB BLOOD ORDERABLES Final [facility] Performing Organization Address [facility] de Phone Number HISTORICAL RESULTS * (ABNORMAL) Plasma phosphorus (01/28/2013 5:30 AM CDT) Phosphorus, pl 1.3(L) 2.3 - 4.3 mg/dl HISTORICAL RESULTS Plasma 01/28/2013 5:30 AM CDT Result [facility] Ni Agarwal LAB BLOOD ORDERABLES Final [facility] Performing Organization Address [facility] de Phone Number HISTORICAL RESULTS * Serum uric acid (01/28/2013 5:30 AM CDT) Uric acid 6.0 3.0 - 8.0 mg/dl HISTORICAL RESULTS Serum 01/28/2013 5:30 AM CDT us Ni Agarwal LAB BLOOD ORDERABLES Final R [facility] Performing Organization Address [facility] de Phone Number HISTORICAL RESULTS * Serum magnesium (01/28/2013 5:30 AM CDT) Pathologist [facility] Magnesium 1.5 1.4 - 2.5 mg/dl HISTORICAL RESULTS Serum 01/28/2013 5:30 AM CDT Result [facility] Ni Agarwal LAB BLOOD ORDERABLES Final R [facility] Performing Organization Address [facility] de Phone Number HISTORICAL RESULTS * (ABNORMAL) Blood cell count (CBC) (01/28/2013 5:30 AM CDT) Pathologist [facility] WBC 17.9(H) 3.8 - 9.8 K/cumm HISTORICAL RESULTS RBC 3.08(L) 4.50 - 5.70 M/cumm HISTORICAL RESULTS Hgb 11.1(L) 13.8 - 17.2 g/dl HISTORICAL RESULTS Hct 32.6(L) 40.7 - 50.3 % HISTORICAL RESULTS MCV 105.8(H) 80.0 - 97.6 fl HISTORICAL RESULTS MCH 35.9(H) 26.7 - 33.7 pg HISTORICAL RESULTS MCHC 34.0 32.7 - 35.5 g/dl HISTORICAL RESULTS Rdw 13.5 11.8 - 14.6 % HISTORICAL RESULTS Platelets 42(C) 140 - 440 K/cumm HISTORICAL RESULTS Comment:{BMT patient result; not critical.} MPV 9.6 6.8 - 10.4 fl HISTORICAL RESULTS Blood specimen (specimen) 01/28/2013 5:30 AM CDT Result [facility] Ni Agarwal LAB BLOOD ORDERABLES Final R [facility] Performing Organization Address [facility] de Phone Number HISTORICAL RESULTS * Blood ABO, Rh, indirect ab screen (01/28/2013 5:30 AM CDT) Pathologist [facility] ABO, Rho(D) A Positive HISTORI RHODA RESULTS Ursula, indirect Negative HISTORICAL RESULTS Blood specimen (specimen) 01/28/2013 5:30 AM CDT Result [facility] Ni Rosswin LAB BLOOD ORDERABLES Final R [facility] Performing Organization Address [facility] de Phone Number HISTORICAL RESULTS * (ABNORMAL) Blood cell morphologic exam (01/28/2013 5:30 AM CDT) WBC counted 100 # of cells HISTORI RHODA RESULTS Neutrophils 87(H) 44 - 80 % HISTORIC AL RESULTS Lymphocytes 6(L) 13 - 44 % HISTORIC AL RESULTS Monos 7 2 - 8 % HISTORICAL RESULTS Platelet estimate Decreased (A) Adequate HISTORICAL RESULTS Platelet morphology Few Enlarged( A) HISTORICAL RESULTS Anisocytosis Moderate( A) None Seen HISTORICAL RESULTS [place] bodies Present(A ) None Seen HISTORICAL RESULTS Macrocytosis > 15/HPF(A) None Seen HISTORICAL RESULTS Microcytosis 3-7/HPF(A ) None Seen HISTORICAL RESULTS Ovalocytes 3-7/HPF(A ) None Seen HISTORICAL RESULTS Pappenheimer bodies Present(A ) None Seen HISTORICAL RESULTS Polychromasia 3-7/HPF(A ) None Seen HISTORICAL RESULTS Poikilocytosis Trace(A) None Seen HISTO RICAL RESULTS Blood specimen (specimen) 01/28/2013 5:30 AM CDT Ni Agarwal LAB BLOOD ORDERABLES Final R esult Performing Organization Address [facility] Co de Phone Number HISTORICAL RESULTS * Serum vancomycin, trough drug level (01/28/2013 5:30 AM CDT) Pathologist [facility] Vancomycin, trough 17.6 10.0 - 20.9 mcg/ml HISTORICAL RESULTS Comment: Interpretive Data Therapeutic Range: ?? Uncomplicated skin and soft tissue infections: 10-20 mcg/mL ?? All other infections: ??15-20 mcg/mL Current interpretive data was last revised on 12. Serum 01/28/2013 5:30 AM CDT Sophie Thomas MD PhD LAB BLOOD ORDERABLES Final Result Performing Organization Address [facility] Co de Phone Number HISTORICAL RESULTS * Blood tacrolimus (FK-506), trough drug level (01/28/2013 5:30 AM CDT) Tacrolimus, trough 23.5 ng/ml H ISTORICAL RESULTS Comment: Interpretive Data This test was developed using an analyte specific reagent. ??Its performance characteristics were determined by the [facility] in a manner consistent with CLIA requirements. This test has not been cleared or approved by the U.S. Food and Drug Administration. Current interpretive data was last revised on 2012. Blood specimen (specimen) 01/28/2013 5:30 AM CDT Ni Agarwal LAB BLOOD ORDERABLES Final R esult HISTORICAL RESULTS * XR Chest 1 Vw (01/28/2013 3:05 AM CDT) Anatomical Region Laterality Modality Body, Chest N/A Radiographic Tiffany ging 01/28/2013 3:05 AM CDT Narrative 01/28/2013 3:30 PM CDT ISRAEL GAMBINO M.D. MICHAEL GUNTER, FINAL REPORT The radiology attending physician has personally reviewed this study, and has reviewed and/or edited this written report and agrees with it. ACC# ??Date Time ??Exam [id number] Jan 28, 2013 03:05:00 [id number] Chest 1 view Frontal EXAMINATION: ?? Chest One View IMPRESSION: ?? One view the chest is compared to a prior study dated 01/27/2013. There is a new right upper extremity peripherally inserted central venous catheter, the tip projects over the superior cavoatrial junction. There are small bilateral pleural effusions and bibasilar discoid atelectasis with small lung volumes. Pulmonary vascular indistinctness suggest the presence of mild pulmonary edema. There is no pneumothorax. Heart size is unchanged. Requested By: NI AGARWAL M.D. Dictated By: ?? MICHAEL GUNTER, ?? on Jan 28 2013 10:31A This document has been electronically signed by: ISRAEL GAMBINO M.D. on Jan 28 2013 ??3:30P Procedure Note Provider, MD Shmuel - 03/22/2017 ISRAEL GAMBINO M.D. MICHAEL GUNTER, FINAL REPORT The radiology attending physician has personally reviewed this study, and has reviewed and/or edited this written report and agrees with it. [facility]# Date Time Exam [id number] Jan 28, 2013 03:05:00 [id number] Chest 1 view Frontal EXAMINATION: Chest One View IMPRESSION: One view the chest is compared to a prior study dated 01/27/2013. There is a new right upper extremity peripherally inserted central venous catheter, the tip projects over the superior cavoatrial junction. There are small bilateral pleural effusions and bibasilar discoid atelectasis with small lung volumes. Pulmonary vascular indistinctness suggest the presence of mild pulmonary edema. There is no pneumothorax. Heart size is unchanged. Requested By: NI AGARWAL M.D. Dictated By: MICHAEL GUNTER on Jan 28 2013 10:31A This document has been electronically signed by: ISRAEL GAMBINO M.D. on Jan 28 2013 3:30P Historical Provider IMG XR PROCEDURES Final R esult * (ABNORMAL) Blood glucose, POC (01/27/2013 8:57 PM CDT) Glucose, POC, bld 202(H) 65 - 199 mg/dl HISTORICAL RESULTS Gluc, com 1, bld RN Notified HISTORICAL RESULTS Blood specimen (specimen) 01/27/2013 8:57 PM CDT Silva Taylor MD LAB BLOOD ORDERABLES F inal Result Performing Organization Address [facility] Co de Phone Number HISTORICAL RESULTS * (ABNORMAL) Blood glucose, POC (01/27/2013 5:12 PM CDT) Glucose, POC, bld 222(H) 65 - 199 mg/dl HISTORICAL RESULTS Gluc, com 1, bld RN Notified HISTORICAL RESULTS Blood specimen (specimen) 01/27/2013 5:12 PM CDT Silva Taylor MD LAB BLOOD ORDERABLES F inal Result Performing Organization Address [facility] Co de Phone Number HISTORICAL RESULTS * (ABNORMAL) Plasma basic metabolic panel (01/27/2013 1:22 PM CDT) Sodium 141 135 - 145 mmol/L HISTORICAL RESULTS K, pl 3.7 3.3 - 4.9 mmol/L HISTORICAL RESULTS Chloride 105 97 - 110 mmol/L HISTORICAL RESULTS CO2 26 22 - 32 mmol/L HISTORICAL RESULTS A. gap 10 0 - 16 mmol/L HISTORICAL RESULTS Glucose 184 65 - 199 mg/dl HISTORICAL RESULTS BUN 22 8 - 25 mg/dl HISTORICAL RESULTS Creatinine 0.97 0.70 - 1.30 mg/dl HISTORICAL RESULTS Calcium 7.8(L) 8.6 - 10.3 mg/dl HISTORICAL RESULTS Plasma 01/27/2013 1:22 PM CDT Ni Agarwal LAB BLOOD ORDERABLES Final R [facility] Performing Organization Address [facility] de Phone Number HISTORICAL RESULTS * (ABNORMAL) Plasma phosphorus (01/27/2013 1:22 PM CDT) Pathologist [facility] Phosphorus, pl 2.2(L) 2.3 - 4.3 mg/dl HISTORICAL RESULTS Plasma 01/27/2013 1:22 PM CDT Ni Agarwal LAB BLOOD ORDERABLES Final R [facility] Performing Organization Address [facility] de Phone Number HISTORICAL RESULTS * Serum magnesium (01/27/2013 1:22 PM CDT) Pathologist [facility] Magnesium 1.7 1.4 - 2.5 mg/dl HISTORICAL RESULTS Serum 01/27/2013 1:22 PM CDT Ni Agarwal LAB BLOOD ORDERABLES Final R [facility] Performing Organization Address City/[facility] Co de Phone Number HISTORICAL RESULTS * (ABNORMAL) Blood cell count (CBC) (01/27/2013 1:22 PM CDT) WBC 18.3(H) 3.8 - 9.8 K/cumm HISTORICAL RESULTS RBC 2.94(L) 4.50 - 5.70 M/cumm HISTORICAL RESULTS Hgb 11.0(L) 13.8 - 17.2 g/dl HISTORICAL RESULTS Hct 31.5(L) 40.7 - 50.3 % HISTORICAL RESULTS MCV 106.9(H) 80.0 - 97.6 fl HISTORICAL RESULTS MCH 37.5(H) 26.7 - 33.7 pg HISTORICAL RESULTS MCHC 35.0 32.7 - 35.5 g/dl HISTORICAL RESULTS Rdw 13.3 11.8 - 14.6 % HISTORICAL RESULTS Platelets 43(C) 140 - 440 K/cumm HISTORICAL RESULTS Comment:{BMT patient result; not critical.} MPV 9.4 6.8 - 10.4 fl HISTORICAL RESULTS Blood specimen (specimen) 01/27/2013 1:22 PM CDT Result [facility] Ni Agarwal LAB BLOOD ORDERABLES Final R [facility] Performing Organization Address [facility] de Phone Number HISTORICAL RESULTS * (ABNORMAL) Blood cell morphologic exam (01/27/2013 1:22 PM CDT) WBC counted 100 # of cells HISTORI RHODA RESULTS Neutrophils 87(H) 44 - 80 % HISTORIC AL RESULTS Lymphocytes 6(L) 13 - 44 % HISTORIC AL RESULTS Monos 6 2 - 8 % HISTORICAL RESULTS Neutrophilic bands 1 0 - 6 % HISTORICAL RESULTS Platelet estimate Decreased (A) Adequate HISTORICAL RESULTS Macrocytosis > 15/HPF(A) None Seen HISTORICAL RESULTS Blood specimen (specimen) 01/27/2013 1:22 PM CDT Result [facility] Ni Agarwal LAB BLOOD ORDERABLES Final R [facility] Performing Organization Address [facility] de Phone Number HISTORICAL RESULTS * Blood consistent result (01/27/2013 1:22 PM CDT) Consistent result Consistent with previous results HISTORICAL RESULTS Blood specimen (specimen) 01/27/2013 1:22 PM CDT Ni Agarwal LAB BLOOD ORDERABLES Final R [facility] Performing Organization Address [facility] Co de Phone Number HISTORICAL RESULTS * Blood glucose, POC (01/27/2013 12:20 PM CDT) Glucose, POC, bld 182 65 - 199 mg/dl HISTORICAL RESULTS Gluc, com 1, bld RN Notified HISTORICAL RESULTS Blood specimen (specimen) 01/27/2013 12:20 PM CDT Silva Taylor MD LAB BLOOD ORDERABLES F inal Result Performing Organization Address [facility] de Phone Number HISTORICAL RESULTS * (ABNORMAL) Serum vancomycin, trough drug level (01/27/2013 8:44 AM CDT) Pathologist [facility] Vancomycin, trough 21.0(C) 10.0 - 20.9 mcg/ml HISTORICAL RESULTS Comment: Interpretive Data Therapeutic Range: ?? Uncomplicated skin and soft tissue infections: 10-20 mcg/mL ?? All other infections: ??15-20 mcg/mL Current interpretive data was last revised on 12. Serum 01/27/2013 8:44 AM CDT Sophie Thomas MD PhD LAB BLOOD ORDERABLES Final Result Performing Organization Address [facility] de Phone Number HISTORICAL RESULTS * Plasma potassium (01/27/2013 8:44 AM CDT) Pathologist [facility] K, pl 3.7 3.3 - 4.9 mmol/L HISTORICAL RESULTS Plasma 01/27/2013 8:44 AM CDT Sophie Thomas MD PhD LAB BLOOD ORDERABLES Final Result Performing Organization Address [facility] de Phone Number HISTORICAL RESULTS * Critical result call back (01/27/2013 8:44 AM CDT) Pathologist [facility] Date notified 01/27/2013 HISTO RICAL RESULTS Time notified 1055 HISTOR ICAL RESULTS Test name Vanco Tr HISTORICAL RESULTS Called to Teresa Delong HISTORICAL RESULTS Credentials RN HISTORIC AL RESULTS Called by ct HISTORICAL RESULTS No specimen 01/27/2013 8:44 AM CDT Sophie Thomas MD PhD LAB BLOOD ORDERABLES Final Result HISTORICAL RESULTS * (ABNORMAL) Blood glucose, POC (01/27/2013 7:52 AM CDT) Glucose, POC, bld 278(H) 65 - 199 mg/dl HISTORICAL RESULTS Gluc, com 1, bld RN Notified HISTORICAL RESULTS Blood specimen (specimen) 01/27/2013 7:52 AM CDT Silva Taylor MD LAB BLOOD ORDERABLES F inal Result HISTORICAL RESULTS * XR Chest 1 Vw (01/27/2013 5:23 AM CDT) Anatomical Region Laterality Modality Body, Chest N/A Radiographic Tiffany ging 01/27/2013 5:23 AM CDT Narrative 01/27/2013 11:18 AM CDT Toño WHITFIELD M.D. HO FINAL REPORT The radiology attending physician has personally reviewed this study, and has reviewed and/or edited this written report and agrees with it. ACC# ??Date Time ??Exam [id number] Jan 27, 2013 05:23:00 [id number] Chest 1 view Frontal EXAMINATION: ?? Chest One View IMPRESSION: ?? Compared to January 26, 2013. There are small bilateral pleural effusions with associated atelectasis. More discoid atelectasis is noted the left lung base. No pneumonia or pneumothorax. Heart size is normal. Requested By: ALFONSO PA M.D. Dictated By: ?? Toño PEDRAZA ??on Jan 27 2013 ??9:22A This document has been electronically signed by: GERI ORO M.D. on Jan 27 2013 11:18A Procedure Note Provider, MD Shmuel - 03/22/2017 Toño WHITFIELD M.D. HO FINAL REPORT The radiology attending physician has personally reviewed this study, and has reviewed and/or edited this written report and agrees with it. [facility] Date Time Exam [id number] Jan 27, 2013 05:23:00 [id number] Chest 1 view Frontal EXAMINATION: Chest One View IMPRESSION: Compared to January 26, 2013. There are small bilateral pleural effusions with associated atelectasis. More discoid atelectasis is noted the left lung base. No pneumonia or pneumothorax. Heart size is normal. Requested By: ALFONSO PA M.D. Dictated By: Toño PEDRAZA on Jan 27 2013 9:22A This document has been electronically signed by: GERI ORO M.D. on Jan 27 2013 11:18A Result [facility] Historical Provider IMG XR PROCEDURES Final R esult * ELECTROCARDIOGRAPHY (ECG) (01/27/2013) Narrative 01/27/2013 Ordered by an unspecified provider. Result [facility] Historical Provider ECG ORDERABLES Final Res ult * ELECTROCARDIOGRAPHY (ECG) (01/27/2013) Narrative 01/27/2013 Ordered by an unspecified provider. Result [facility] Provider ECG ORDERABLES Final Res ult * Blood glucose, POC (01/26/2013 9:06 PM CDT) Glucose, POC, bld 173 65 - 199 mg/dl HISTORICAL RESULTS Blood specimen (specimen) 01/26/2013 9:06 PM CDT Silva Taylor MD LAB BLOOD ORDERABLES F inal Result HISTORICAL RESULTS * (ABNORMAL) Blood glucose, POC (01/26/2013 6:12 PM CDT) Glucose, POC, bld 224(H) 65 - 199 mg/dl HISTORICAL RESULTS Blood specimen (specimen) 01/26/2013 6:12 PM CDT Silva Taylor MD LAB BLOOD ORDERABLES F inal Result Performing Organization Address [facility] Co de Phone Number HISTORICAL RESULTS * (ABNORMAL) Blood glucose, POC (01/26/2013 11:53 AM CDT) Glucose, POC, bld 300(H) 65 - 199 mg/dl HISTORICAL RESULTS Blood specimen (specimen) 01/26/2013 11:53 AM CDT Silva Taylor MD LAB BLOOD ORDERABLES F inal Result Performing Organization Address [facility] Co de Phone Number HISTORICAL RESULTS * Plasma partial thromboplastin time (PTT) (01/26/2013 11:10 AM CDT) APTT 33.6 25.0 - 37.0 seconds HISTORICAL RESULTS Comment: Interpretive Data Therapeutic heparin range:60.0 - 94.0 sec based on correlation with therapeutic heparin activity range of 0.3 -0.7 Units/mL. Current interpretive data was last revised on 2011. Plasma 01/26/2013 11:1 0 AM CDT Michael Abdalla MD LAB BLOOD ORDERABLES Pilar l Result Performing Organization Address [facility] de Phone Number HISTORICAL RESULTS * Plasma prothrombin time (PT) (01/26/2013 11:10 AM CDT) Prothrombin time (PT) 11.2 9.0 - 12.0 seconds HISTORICAL RESULTS INR 1.09 0.90 - 1.20 HISTORIC AL RESULTS Comment: Interpretive Data Inpatient therapeutic ranges* Atrial fibrillation ?2.0-3.0 INR Venous thrombo-embolism ?2.0-3.0 INR Bioprosthetic heart valve ?* Mechanical heart valve, bileaflet or tilting disk,aortic position ? 2.0-3.0 INR All other,or bileaflet or tilting disk, in mitral position ? 2.5-3.5 INR *See the pharmacy resource directory (PHRED) for an updated copy of the Tool Book at [email or web address] Current Interpretive Data was last revised 2012. Plasma 01/26/2013 11:1 0 AM CDT Michael Abdalla MD LAB BLOOD ORDERABLES Pilar l Result Performing Organization Address [facility] de Phone Number HISTORICAL RESULTS * (ABNORMAL) Plasma fibrinogen (01/26/2013 11:10 AM CDT) Fibrinogen 881(H) 170 - 400 mg/dl HISTORICAL RESULTS Plasma 01/26/2013 11:1 0 AM CDT Michael Abdalla MD LAB BLOOD ORDERABLES Pilar l Result Performing Organization Address [facility] de Phone Number HISTORICAL RESULTS * Serum anti-heparin platelet factor 4 (PF4) ab (01/26/2013 11:10 AM CDT) Anti-heparin PF4 ab Negative Negative HISTORICAL RESULTS Comment: Interpretive Data Detection of antibodies to Heparin-platelet factor 4 (heparin-PF4) complexes is performed by an OLEG method. Two results are provided: qualitative (Positive, Negative or Indeterminate) and OD units. The cut off for Positive is approximately 0.4 OD with minor day-to-day variation. The heparin-PF4 OLEG is a sensitive, but not specific, test for heparin-induced thrombocytopenia (HIT), since patients exposed to heparin can make heparin-PF4 antibodies without developing thrombocytopenia or thrombotic complications. However, the OD of the heparin-PF4 OLEG result correlates with the clinical probability of HIT (Clinical Practice Guideline on the Evaluation and Management of HIT, [place] [employer], 2009). The OLEG result should be interpreted in the context of the patient's clinical situation. The clinical likelihood of HIT may be assessed using the 4T's : extent of thrombocytopenia, timing of platelet count fall, thrombosis or other sequelae, and other causes of thrombocytopenia (Lo et al., Journal of Thrombosis and Haemostasis, 2006, 4:759-765). Current interpretive data was last revised on 2011. Anti-heparin PF4 OD 0.02 HISTORICAL RESULTS Serum 01/26/2013 11:1 0 AM CDT Michael Abdalla MD LAB BLOOD ORDERABLES Pilar l Result HISTORICAL RESULTS * (ABNORMAL) Blood glucose, POC (01/26/2013 7:56 AM CDT) [facility] Glucose, POC, bld 220(H) 65 - 199 mg/dl HISTORICAL RESULTS Blood specimen (specimen) 01/26/2013 7:56 AM CDT Silva Taylor MD LAB BLOOD ORDERABLES F inal Result HISTORICAL RESULTS * XR Chest 1 Vw (01/26/2013 4:15 AM CDT) Anatomical Region Laterality Modality Body, Chest N/A Radiographic Tiffany ging 01/26/2013 4:15 AM CDT Narrative 01/26/2013 8:43 AM CDT MARA GLORIA M.D. LACEY MOLINA M.D. HO FINAL REPORT The radiology attending physician has personally reviewed this study, and has reviewed and/or edited this written report and agrees with it. ACC# ??Date Time ??Exam [id number] Jan 26, 2013 04:15:00 [id number] Chest 1 view Frontal EXAMINATION: ?? CHEST 1 VIEW COMPARISON: 01/25/2013 IMPRESSION: ?? There has been interval increase in size of a layering small right pleural effusion with adjacent right basilar atelectasis. In addition, there is a grossly unchanged small left pleural effusion with left basilar atelectasis. The lung volumes are small. There is no pneumothorax. The heart size is stable. Requested By: MICHAEL ABDALLA M.D. Dictated By: ?? Toño CARABALLO ??on Jan 26 2013 ??8:30A This document has been electronically signed by: MARA GLORIA M.D. on Jan 26 2013 ??8:43A Procedure Note Provider, MD Shmuel - 03/22/2017 Toño PEOPLES M.D. HO FINAL REPORT The radiology attending physician has personally reviewed this study, and has reviewed and/or edited this written report and agrees with it. ACC# Date Time Exam [id number] Jan 26, 2013 04:15:00 [id number] Chest 1 view Frontal EXAMINATION: CHEST 1 VIEW COMPARISON: 01/25/2013 IMPRESSION: There has been interval increase in size of a layering small right pleural effusion with adjacent right basilar atelectasis. In addition, there is a grossly unchanged small left pleural effusion with left basilar atelectasis. The lung volumes are small. There is no pneumothorax. The heart size is stable. Requested By: MICHAEL ABDALLA M.D. Dictated By: Toño CARABALLO on Jan 26 2013 8:30A This document has been electronically signed by: MARA GLORIA M.D. on Jan 26 2013 8:43A us Historical Provider MD TAPIA XR PROCEDURES Final R esult * (ABNORMAL) Plasma hepatic function panel (01/25/2013 11:15 PM CDT) Protein, pl 5.2(L) 6.5 - 8.5 g/dl HISTORICAL RESULTS Alb 2.4(L) 3.6 - 5.0 g/dl HISTORICAL RESULTS Bilirubin 0.8 0.3 - 1.1 mg/dl HISTORICAL RESULTS Bilirubin, direct 0.4(H) 0.0 - 0.3 mg/dl HISTORICAL RESULTS Alk phos 78 38 - 126 Units/L HISTORICAL RESULTS AST 44 11 - 47 Units/L HISTORICAL RESULTS ALT 36 7 - 53 Units/L HISTORICAL RESULTS Plasma 01/25/2013 11:1 5 PM CDT Michael Abdalla MD LAB BLOOD ORDERABLES Pilar l Result Performing Organization Address [facility] de Phone Number HISTORICAL RESULTS * (ABNORMAL) Plasma basic metabolic panel (01/25/2013 11:15 PM CDT) Sodium 145 135 - 145 mmol/L HISTORICAL RESULTS K, pl 3.5 3.3 - 4.9 mmol/L HISTORICAL RESULTS Chloride 110 97 - 110 mmol/L HISTORICAL RESULTS CO2 27 22 - 32 mmol/L HISTORICAL RESULTS A. gap 8 0 - 16 mmol/L HISTORICAL RESULTS Glucose 231(H) 65 - 199 mg/dl HISTORICAL RESULTS BUN 27(H) 8 - 25 mg/dl HISTORICAL RESULTS Creatinine 1.18 0.70 - 1.30 mg/dl HISTORICAL RESULTS Calcium 7.9(L) 8.6 - 10.3 mg/dl HISTORICAL RESULTS Plasma 01/25/2013 11:1 5 PM CDT Michael Abdalla MD LAB BLOOD ORDERABLES Pilar l Result Performing Organization Address [facility] de Phone Number HISTORICAL RESULTS * (ABNORMAL) Plasma phosphorus (01/25/2013 11:15 PM CDT) Phosphorus, pl 1.4(L) 2.3 - 4.3 mg/dl HISTORICAL RESULTS Plasma 01/25/2013 11:1 5 PM CDT Michael Abdalla MD LAB BLOOD ORDERABLES Pilar l Result Performing Organization Address [facility] Co de Phone Number HISTORICAL RESULTS * (ABNORMAL) Serum lipase (01/25/2013 11:15 PM CDT) Lip 116(H) 0 - 99 Units/L HISTORICAL RESULTS Serum 01/25/2013 11:1 5 PM CDT Michael Abdalla MD LAB BLOOD ORDERABLES Pilar l Result HISTORICAL RESULTS * Serum magnesium (01/25/2013 11:15 PM CDT) Magnesium 2.2 1.4 - 2.5 mg/dl HISTORICAL RESULTS Serum 01/25/2013 11:1 5 PM CDT Michael Abdalla MD LAB BLOOD ORDERABLES Pilar pawel Result HISTORICAL RESULTS * (ABNORMAL) Blood cell count (CBC) (01/25/2013 11:15 PM CDT) WBC 18.7(H) 3.8 - 9.8 K/cumm HISTORICAL RESULTS RBC 3.29(L) 4.50 - 5.70 M/cumm HISTORICAL RESULTS Hgb 12.0(L) 13.8 - 17.2 g/dl HISTORICAL RESULTS Hct 35.5(L) 40.7 - 50.3 % HISTORICAL RESULTS MCV 108.0(H) 80.0 - 97.6 fl HISTORICAL RESULTS MCH 36.4(H) 26.7 - 33.7 pg HISTORICAL RESULTS MCHC 33.7 32.7 - 35.5 g/dl HISTORICAL RESULTS Rdw 13.4 11.8 - 14.6 % HISTORICAL RESULTS Platelets 50(L) 140 - 440 K/cumm HISTORICAL RESULTS Comment:{No clot detected in sample.} MPV 9.5 6.8 - 10.4 fl HISTORICAL RESULTS Neutrophils 92.2(H) 38.7 - 74.5 % HISTORICAL RESULTS Lymphocytes 4.4(L) 20.0 - 54.3 % HISTORICAL RESULTS Monos 3.3(L) 4.3 - 13.5 % HISTORICAL RESULTS Eosinophils 0.1 0.0 - 6.0 % HISTORICAL RESULTS Basophils 0.0 0.0 - 3.0 % HISTORICAL RESULTS Neutrophils, abs 17.2(H) 1.8 - 6.6 K/cumm HISTORICAL RESULTS Lymphocytes, abs 0.8(L) 1.2 - 3.3 K/cumm HISTORICAL RESULTS Monocytes, absolute 0.6 0.2 - 1.2 K/cumm HISTORICAL RESULTS Eosinophils, abs 0.0 0.0 - 0.5 K/cumm HISTORICAL RESULTS Basophils, abs 0.0 0.0 - 0.2 K/cumm HISTORICAL RESULTS Blood specimen (specimen) 01/25/2013 11:15 PM CDT Michael Abdalla MD LAB BLOOD ORDERABLES Pilar l Result Performing Organization Address [facility]/ZIP Co de Phone Number HISTORICAL RESULTS * (ABNORMAL) Blood glucose, POC (01/25/2013 10:09 PM CDT) Pathologist [facility] Glucose, POC, bld 264(H) 65 - 199 mg/dl HISTORICAL RESULTS Blood specimen (specimen) 01/25/2013 10:09 PM CDT Josué Del Valle MD PhD LAB BLOOD ORDERABLES Fin al Result Performing Organization Address [facility] Co de Phone Number HISTORICAL RESULTS * CT Abdomen Pelvis W Contrast (01/25/2013 4:41 PM CDT) Anatomical Region Laterality Modality Body N/A Computed Tomogra phy 01/25/2013 4:41 PM CDT Narrative 01/25/2013 5:54 PM CDT CORNELL CHANEY M.D. MICHAEL BREWER M.D. FINAL REPORT The radiology attending physician has personally reviewed this study, and has reviewed and/or edited this written report and agrees with it. ACC# ??Date Time ??Exam [id number] Jan 25, 2013 15:40:[id number] Chest with contrast [id number] Jan 25, 2013 15:41:[id number] Abd & Pelvis with cont EXAMINATION: ?COMPUTED TOMOGRAPHY OF THE CHEST, ABDOMEN, AND PELVIS WITH CONTRAST TECHNIQUE: Computed tomography of the chest, abdomen, and pelvis was performed according to standard protocol with 92 mL Optiray-350 intravenous contrast. HISTORY: ??47-year-old male with acute myelogenous leukemia, pancreatitis, and [id number]-piim disease. FINDINGS: ?? Comparison is made to a prior study dated November 03, 2012. Changes of mild upper lobe predominant centrilobular emphysema are again seen. There has been interval development of small bilateral pleural effusions with associated atelectasis. There is persistent, partial right middle lobe collapse. No pneumothorax. There are no suspicious pulmonary nodules. Heart size is normal without pericardial effusion. Great vessels of the chest are normal in course and configuration. There is no supraclavicular, mediastinal, hilar, or axillary lymphadenopathy. The liver, gallbladder, and intra and extrahepatic biliary ducts are normal. The spleen is atrophic. The adrenal glands and kidneys are normal. There is extensive inflammatory fat stranding surrounding the pancreas with nonloculated peripancreatic fluid collections and ascites tracking around the liver and spleen. The gastrointestinal tract is normal caliber without inflammation or obstruction. Colonic diverticulosis is noted. No abdominal or pelvic lymphadenopathy is seen. The abdominal and pelvic vasculature is grossly normal in appearance. The bladder is decompressed with a bladder catheter in place. The prostate is normal. Bone windows demonstrate no suspicious lytic or blastic lesions. IMPRESSION: ?? 1. Interval development of small bilateral pleural effusions with associated atelectasis and persistent, unchanged partial collapse of the right middle lobe. 2. Inflammatory fat stranding about the pancreas with nonloculated peripancreatic fluid collections and a small amount of abdominal and pelvic ascites. These findings are compatible with pancreatitis. Requested By: ANJALI DSOUZA ??MLexii Dictated By: ?? Toño FERRARO ??on Jan 25 2013 ??4:37P This document has been electronically signed by: CORNELL CHANEY M.D. on Jan 25 2013 ??4:53P Procedure Note Provider, MD Shmuel - 03/22/2017 Toño MONTANEZ M.D. HO FINAL REPORT The radiology attending physician has personally reviewed this study, and has reviewed and/or edited this written report and agrees with it. ACC# Date Time Exam [id number] Jan 25, 2013 15:40:[id number] Chest with contrast [id number] Jan 25, 2013 15:41:[id number] Abd & Pelvis with cont EXAMINATION: COMPUTED TOMOGRAPHY OF THE CHEST, ABDOMEN, AND PELVIS WITH CONTRAST TECHNIQUE: Computed tomography of the chest, abdomen, and pelvis was performed according to standard protocol with 92 mL Optiray-350 intravenous contrast. HISTORY: 47-year-old male with acute myelogenous leukemia, pancreatitis, and jdvze-etyajo-rnjc disease. FINDINGS: Comparison is made to a prior study dated November 03, 2012. Changes of mild upper lobe predominant centrilobular emphysema are again seen. There has been interval development of small bilateral pleural effusions with associated atelectasis. There is persistent, partial right middle lobe collapse. No pneumothorax. There are no suspicious pulmonary nodules. Heart size is normal without pericardial effusion. Great vessels of the chest are normal in course and configuration. There is no supraclavicular, mediastinal, hilar, or axillary lymphadenopathy. The liver, gallbladder, and intra and extrahepatic biliary ducts are normal. The spleen is atrophic. The adrenal glands and kidneys arenormal. There is extensive inflammatory fat stranding surrounding the pancreas with nonloculated peripancreatic fluid collections and ascites tracking around the liver and spleen. The gastrointestinal tract is normal caliber without inflammation or obstruction. Colonic diverticulosis is noted. No abdominal or pelvic lymphadenopathy is seen. The abdominal and pelvic vasculature is grossly normal in appearance. The bladder is decompressed with a bladder catheter in place. The prostate is normal. Bone windows demonstrate no suspicious lytic or blastic lesions. IMPRESSION: 1. Interval development of small bilateral pleural effusions with associated atelectasis and persistent, unchanged partial collapse of the right middle lobe. 2. Inflammatory fat stranding about the pancreas with nonloculated peripancreatic fluid collections and a small amount of abdominal and pelvic ascites. These findings are compatible with pancreatitis. Requested By: ANJALI DSOUZA M.D. Dictated By: Toño FERRARO on Jan 25 2013 4:37P This document has been electronically signed by: CORNELL CHANEY M.D. on Jan 25 2013 4:53P us Historical Provider MD TAPIA CT PROCEDURES Final R esult * CT Chest W Contrast (01/25/2013 4:40 PM CDT) Anatomical Region Laterality Modality Body N/A Computed Tomogra phy 01/25/2013 4:40 PM CDT Narrative 01/25/2013 5:54 PM CDT Toño MONTANEZ M.D. HO FINAL REPORT The radiology attending physician has personally reviewed this study, and has reviewed and/or edited this written report and agrees with it. ACC# ??Date Time ??Exam [id number] Jan 25, 2013 15:40:[id number] Chest with contrast [id number] Jan 25, 2013 15:41:[address] Abd & Pelvis with cont EXAMINATION: ?COMPUTED TOMOGRAPHY OF THE CHEST, ABDOMEN, AND PELVIS WITH CONTRAST TECHNIQUE: Computed tomography of the chest, abdomen, and pelvis was performed according to standard protocol with 92 mL Optiray-350 intravenous contrast. HISTORY: ??47-year-old male with acute myelogenous leukemia, pancreatitis, and zyxzm-nmaifc-musw disease. FINDINGS: ?? Comparison is made to a prior study dated November 03, 2012. Changes of mild upper lobe predominant centrilobular emphysema are again seen. There has been interval development of small bilateral pleural effusions with associated atelectasis. There is persistent, partial right middle lobe collapse. No pneumothorax. There are no suspicious pulmonary nodules. Heart size is normal without pericardial effusion. Great vessels of the chest are normal in course and configuration. There is no supraclavicular, mediastinal, hilar, or axillary lymphadenopathy. The liver, gallbladder, and intra and extrahepatic biliary ducts are normal. The spleen is atrophic. The adrenal glands and kidneys are normal. There is extensive inflammatory fat stranding surrounding the pancreas with nonloculated peripancreatic fluid collections and ascites tracking around the liver and spleen. The gastrointestinal tract is normal caliber without inflammation or obstruction. Colonic diverticulosis is noted. No abdominal or pelvic lymphadenopathy is seen. The abdominal and pelvic vasculature is grossly normal in appearance. The bladder is decompressed with a bladder catheter in place. The prostate is normal. Bone windows demonstrate no suspicious lytic or blastic lesions. IMPRESSION: ?? 1. Interval development of small bilateral pleural effusions with associated atelectasis and persistent, unchanged partial collapse of the right middle lobe. 2. Inflammatory fat stranding about the pancreas with nonloculated peripancreatic fluid collections and a small amount of abdominal and pelvic ascites. These findings are compatible with pancreatitis. Requested By: ANJALI DSOUZA ??Toño Dictated By: ?? MICHAEL BREWER M.D. HO ??on Jan 25 2013 ??4:37P This document has been electronically signed by: CORNELL CHANEY M.D. on Jan 25 2013 ??4:53P Procedure Note Provider, MD Shmuel - 03/22/2017 CORNELL CHANEY M.D. MICHAEL BREWER M.D. FINAL REPORT The radiology attending physician has personally reviewed this study, and has reviewed and/or edited this written report and agrees with it. ACC# Date Time Exam [id number] Jan 25, 2013 15:40:[id number] Chest with contrast [id number] Jan 25, 2013 15:41:[id number] Abd & Pelvis with cont EXAMINATION: COMPUTED TOMOGRAPHY OF THE CHEST, ABDOMEN, AND PELVIS WITH CONTRAST TECHNIQUE: Computed tomography of the chest, abdomen, and pelvis was performed according to standard protocol with 92 mL Optiray-350 intravenous contrast. HISTORY: 47-year-old male with acute myelogenous leukemia, pancreatitis, and gvcne-yvmzaj-ebne disease. FINDINGS: Comparison is made to a prior study dated November 03, 2012. Changes of mild upper lobe predominant centrilobular emphysema are again seen. There has been interval development of small bilateral pleural effusions with associated atelectasis. There is persistent, partial right middle lobe collapse. No pneumothorax. There are no suspicious pulmonary nodules. Heart size is normal without pericardial effusion. Great vessels of the chest are normal in course and configuration. There is no supraclavicular, mediastinal, hilar, or axillary lymphadenopathy. The liver, gallbladder, and intra and extrahepatic biliary ducts are normal. The spleen is atrophic. The adrenal glands and kidneys arenormal. There is extensive inflammatory fat stranding surrounding the pancreas with nonloculated peripancreatic fluid collections and ascites tracking around the liver and spleen. The gastrointestinal tract is normal caliber without inflammation or obstruction. Colonic diverticulosis is noted. No abdominal or pelvic lymphadenopathy is seen. The abdominal and pelvic vasculature is grossly normal in appearance. The bladder is decompressed with a bladder catheter in place. The prostate is normal. Bone windows demonstrate no suspicious lytic or blastic lesions. IMPRESSION: 1. Interval development of small bilateral pleural effusions with associated atelectasis and persistent, unchanged partial collapse of the right middle lobe. 2. Inflammatory fat stranding about the pancreas with nonloculated peripancreatic fluid collections and a small amount of abdominal and pelvic ascites. These findings are compatible with pancreatitis. Requested By: ANJALI DSOUZA M.D. Dictated By: Toño FERRARO on Jan 25 2013 4:37P This document has been electronically signed by: CORNELL CHANEY M.D. on Jan 25 2013 4:53P Historical Provider MD IMG CT PROCEDURES Final R esult * (ABNORMAL) Blood glucose, POC (01/25/2013 4:23 PM CDT) Glucose, POC, bld 311(H) 65 - 199 mg/dl HISTORICAL RESULTS Blood specimen (specimen) 01/25/2013 4:23 PM CDT Josué Del Valle MD PhD LAB BLOOD ORDERABLES Fin al Result Performing Organization Address [facility] Co de Phone Number HISTORICAL RESULTS * (ABNORMAL) Blood glucose, POC (01/25/2013 12:04 PM CDT) Glucose, POC, bld 248(H) 65 - 199 mg/dl HISTORICAL RESULTS Blood specimen (specimen) 01/25/2013 12:04 PM CDT Josué Del Valle MD PhD LAB BLOOD ORDERABLES Fin al Result Performing Organization Address [facility] Co de Phone Number HISTORICAL RESULTS * (ABNORMAL) Blood glucose, POC (01/25/2013 8:05 AM CDT) Glucose, POC, bld 289(H) 65 - 199 mg/dl HISTORICAL RESULTS Blood specimen (specimen) 01/25/2013 8:05 AM CDT Josué Del Valle MD PhD LAB BLOOD ORDERABLES Fin al Result Performing Organization Address [facility] Co de Phone Number HISTORICAL RESULTS * XR Chest 1 Vw (01/25/2013 5:40 AM CDT) Anatomical Region Laterality Modality Body, Chest N/A Radiographic Tiffany ging 01/25/2013 5:40 AM CDT Narrative 01/25/2013 7:59 AM CDT MARA GLORIA M.D. FINAL REPORT ACC# ??Date Time ??Exam [id number] Jan 25, 2013 04:40:00 [id number] Chest 1 view Frontal EXAMINATION: ?? Portable chest radiograph IMPRESSION: ?Comparison is made with prior examination from January 24, 2013. The small bilateral pleural effusions and bibasal atelectasis remains stable. However, there his been interval increase in retrocardiac left lower lobe opacity may represent developing pneumonia. No pneumothorax is seen. The heart is normal in size. The peripherally inserted central venous catheter has been removed in the interval. Requested By: MICHAEL ABDALLA M.D. Dictated By: ?? MARA GLORIA M.D. ??on Jan 25 2013 ??6:59A This document has been electronically signed by: MARA GLORIA M.D. on Jan 25 2013 ??6:59A Procedure Note Provider, MD Shmuel - 03/22/2017 MARA GLORIA M.D. FINAL REPORT ACC# Date Time Exam [id number] Jan 25, 2013 04:40:00 [id number] Chest 1 view Frontal EXAMINATION: Portable chest radiograph IMPRESSION: Comparison is made with prior examination from January 24, 2013. The small bilateral pleural effusions and bibasal atelectasis remains stable. However, there his been interval increase in retrocardiac left lower lobe opacity may represent developing pneumonia. No pneumothorax is seen. The heart is normal in size. The peripherally inserted central venous catheter has been removed in the interval. Requested By: MICHAEL ABDALLA M.D. Dictated By: MARA GLORIA M.D. on Jan 25 2013 6:59A This document has been electronically signed by: MARA GLORIA M.D. on Jan 25 2013 6:59A us Historical Provider IMG XR PROCEDURES Final R esult * (ABNORMAL) Serum calcium, ionized (01/25/2013 1:40 AM EMT DRIVER) Ca, ionized, sr 3.80(L) 4.50 - 5.10 mg/dl HISTORICAL RESULTS Serum 01/25/2013 1:40 AM EMT DRIVER Michael Abdalla MD LAB BLOOD ORDERABLES Pilar l Result Performing Organization Address [facility] de Phone Number HISTORICAL RESULTS * (ABNORMAL) Blood gas, point of care, arterial (01/25/2013 1:32 AM EMT DRIVER) Ph, art 7.47(H) 7.35 - 7.45 HISTORICAL RESULTS PCO2 38 35 - 45 mm Hg HISTORICAL RESULTS PO2, art 64(L) 80 - 105 mm Hg HISTORICAL RESULTS Sodium, bld 141 135 - 145 mmol/L HISTORICAL RESULTS Potassium, bld 3.5 3.3 - 4.9 mmol/L HISTORICAL RESULTS Ca, ionized, bld 3.89(L) 4.50 - 5.10 mg/dl HISTORICAL RESULTS Hct 38.0(L) 40.7 - 50.3 % HISTORICAL RESULTS Glu, art 279(H) 65 - 199 mg/dl HISTORICAL RESULTS HCO3, art 28 18 - 28 mmol/L HISTORICAL RESULTS CO2, calc, art 29 20 - 30 mmol/L HISTORICAL RESULTS BE, art 3.9 mmol/L HISTORICAL RESULTS O2 sat, art 93(L) 95 - 98 % HISTORIC AL RESULTS Arterial blood 01/25/2013 1: 32 AM EMT DRIVER Josué Del Valle MD PhD LAB BLOOD ORDERABLES Fin al Result Performing Organization Address [facility] Co de Phone Number HISTORICAL RESULTS * (ABNORMAL) Plasma comprehensive metabolic panel (01/24/2013 11:10 PM EMT DRIVER) Sodium 145 135 - 145 mmol/L HISTORICAL RESULTS K, pl 3.9 3.3 - 4.9 mmol/L HISTORICAL RESULTS Chloride 108 97 - 110 mmol/L HISTORICAL RESULTS CO2 26 22 - 32 mmol/L HISTORICAL RESULTS A. gap 11 0 - 16 mmol/L HISTORICAL RESULTS Glucose 303(H) 65 - 199 mg/dl HISTORICAL RESULTS BUN 37(H) 8 - 25 mg/dl HISTORICAL RESULTS Creatinine 1.33(H) 0.70 - 1.30 mg/dl HISTORICAL RESULTS Calcium 7.2(L) 8.6 - 10.3 mg/dl HISTORICAL RESULTS Protein, pl 5.1(L) 6.5 - 8.5 g/dl HISTORICAL RESULTS Alb 2.5(L) 3.6 - 5.0 g/dl HISTORICAL RESULTS Bilirubin 0.6 0.3 - 1.1 mg/dl HISTORICAL RESULTS Alk phos 68 38 - 126 Units/L HISTORICAL RESULTS AST 41 11 - 47 Units/L HISTORICAL RESULTS ALT 39 7 - 53 Units/L HISTORICAL RESULTS Plasma 01/24/2013 11:1 0 PM EMT DRIVER Result [facility] Michael Abdalla MD LAB BLOOD ORDERABLES Pilar l Result Performing Organization Address [facility] Co de Phone Number HISTORICAL RESULTS * (ABNORMAL) Plasma phosphorus (01/24/2013 11:10 PM EMT DRIVER) Phosphorus, pl 2.2(L) 2.3 - 4.3 mg/dl HISTORICAL RESULTS Plasma 01/24/2013 11:1 0 PM EMT DRIVER Result [facility] Michael Abdalla MD LAB BLOOD ORDERABLES Pilar l Result Performing Organization Address [facility] Co de Phone Number HISTORICAL RESULTS * Serum vancomycin drug level (01/24/2013 11:10 PM EMT DRIVER) Vancomycin 5.0 mcg/ml HISTORICA L RESULTS Serum 01/24/2013 11:1 0 PM EMT DRIVER Historical Provider LAB BLOOD ORDERABLES Pilar l Result HISTORICAL RESULTS * Serum magnesium (01/24/2013 11:10 PM EMT DRIVER) Magnesium 1.4 1.4 - 2.5 mg/dl HISTORICAL RESULTS Serum 01/24/2013 11:1 0 PM EMT DRIVER Michael Abdalla MD LAB BLOOD ORDERABLES Pilar l Result Performing Organization Address [facility] Co de Phone Number HISTORICAL RESULTS * (ABNORMAL) Plasma partial thromboplastin time (PTT) (01/24/2013 10:30 PM EMT DRIVER) APTT 37.2(H) 25.0 - 37.0 seconds HISTORICAL RESULTS Comment: Interpretive Data Therapeutic heparin range:60.0 - 94.0 sec based on correlation with therapeutic heparin activity range of 0.3 -0.7 Units/mL. Current interpretive data was last revised on 2011. Plasma 01/24/2013 10:3 0 PM EMT DRIVER Michael Abdalla MD LAB BLOOD ORDERABLES Pilar l Result Performing Organization Address [facility] de Phone Number HISTORICAL RESULTS * (ABNORMAL) Plasma prothrombin time (PT) (01/24/2013 10:30 PM EMT DRIVER) Prothrombin time (PT) 12.4(H) 9.0 - 12.0 seconds HISTORICAL RESULTS INR 1.20 0.90 - 1.20 HISTORIC AL RESULTS Comment: Interpretive Data Inpatient therapeutic ranges* Atrial fibrillation ?2.0-3.0 INR Venous thrombo-embolism ?2.0-3.0 INR Bioprosthetic heart valve ?* Mechanical heart valve, bileaflet or tilting disk,aortic position ? 2.0-3.0 INR All other,or bileaflet or tilting disk, in mitral position ? 2.5-3.5 INR *See the pharmacy resource directory (PHRED) for an updated copy of the Tool Book at [email or web address] Current Interpretive Data was last revised 2012. Plasma 01/24/2013 10:3 0 PM EMT DRIVER Michael Abdalla MD LAB BLOOD ORDERABLES Pilar l Result Performing Organization Address City/State/[facility] Co de Phone Number HISTORICAL RESULTS * (ABNORMAL) Blood cell count (CBC) (01/24/2013 10:30 PM EMT DRIVER) WBC 20.3(H) 3.8 - 9.8 K/cumm HISTORICAL RESULTS RBC 3.58(L) 4.50 - 5.70 M/cumm HISTORICAL RESULTS Hgb 13.4(L) 13.8 - 17.2 g/dl HISTORICAL RESULTS Hct 39.2(L) 40.7 - 50.3 % HISTORICAL RESULTS MCV 109.5(H) 80.0 - 97.6 fl HISTORICAL RESULTS MCH 37.6(H) 26.7 - 33.7 pg HISTORICAL RESULTS MCHC 34.3 32.7 - 35.5 g/dl HISTORICAL RESULTS Rdw 13.3 11.8 - 14.6 % HISTORICAL RESULTS Platelets 73(L) 140 - 440 K/cumm HISTORICAL RESULTS MPV 9.4 6.8 - 10.4 fl HISTORICAL RESULTS Neutrophils 88.8(H) 38.7 - 74.5 % HISTORICAL RESULTS Lymphocytes 9.6(L) 20.0 - 54.3 % HISTORICAL RESULTS Monos 1.6(L) 4.3 - 13.5 % HISTORICAL RESULTS Eosinophils 0.0 0.0 - 6.0 % HISTORICAL RESULTS Basophils 0.0 0.0 - 3.0 % HISTORICAL RESULTS Neutrophils, abs 18.1(H) 1.8 - 6.6 K/cumm HISTORICAL RESULTS Lymphocytes, abs 2.0 1.2 - 3.3 K/cumm HISTORICAL RESULTS Monocytes, absolute 0.3 0.2 - 1.2 K/cumm HISTORICAL RESULTS Eosinophils, abs 0.0 0.0 - 0.5 K/cumm HISTORICAL RESULTS Basophils, abs 0.0 0.0 - 0.2 K/cumm HISTORICAL RESULTS Blood specimen (specimen) 01/24/2013 10:30 PM EMT DRIVER Michael Abdalla MD LAB BLOOD ORDERABLES Pilar l Result Performing Organization Address City/State/[facility] de Phone Number HISTORICAL RESULTS * Blood cell morphologic exam (01/24/2013 10:30 PM EMT DRIVER) [facility] Morphology scrn Original results obtained required verification by alternate method(s). Refer to CBC and/or observation sections for detailed results HISTORICAL RESULTS Blood specimen (specimen) 01/24/2013 10:30 PM EMT DRIVER Michael Abdalla MD LAB BLOOD ORDERABLES Pilar l Result Performing Organization Address [facility] de Phone Number HISTORICAL RESULTS * (ABNORMAL) Plasma basic metabolic panel (01/24/2013 9:50 PM EMT DRIVER) [facility] A. gap 11 0 - 16 mmol/L HISTORICAL RESULTS Sodium 146(H) 135 - 145 mmol/L HISTORICAL RESULTS K, pl 3.6 3.3 - 4.9 mmol/L HISTORICAL RESULTS Chloride 108 97 - 110 mmol/L HISTORICAL RESULTS CO2 27 22 - 32 mmol/L HISTORICAL RESULTS Glucose 300(H) 65 - 199 mg/dl HISTORICAL RESULTS BUN 39(H) 8 - 25 mg/dl HISTORICAL RESULTS Creatinine 1.45(H) 0.70 - 1.30 mg/dl HISTORICAL RESULTS Calcium 7.4(L) 8.6 - 10.3 mg/dl HISTORICAL RESULTS Plasma 01/24/2013 9:50 PM EMT DRIVER Michael Abdalla MD LAB BLOOD ORDERABLES Pilar l Result Performing Organization Address [facility] de Phone Number HISTORICAL RESULTS * Blood tacrolimus (FK-506) drug level (01/24/2013 8:55 PM EMT DRIVER) [facility] Tacrolimus 8.9 ng/ml HISTORICA L RESULTS Comment: Interpretive Data This test was developed using an analyte specific reagent. ??Its performance characteristics were determined by the [facility] in a manner consistent with CLIA requirements. This test has not been cleared or approved by the U.S. Food and Drug Administration. Current interpretive data was last revised on 2012. Blood specimen (specimen) 01/24/2013 8:55 PM EMT DRIVER us Cristela Cueva MD LAB BLOOD ORDERABLES Final Result Performing Organization Address [facility] de Phone Number HISTORICAL RESULTS * (ABNORMAL) Blood glucose, POC (01/24/2013 8:04 PM EMT DRIVER) Glucose, POC, bld 328(H) 65 - 199 mg/dl HISTORICAL RESULTS Blood specimen (specimen) 01/24/2013 8:04 PM EMT DRIVER us Josué Del Valle MD PhD LAB BLOOD ORDERABLES Fin al Result Performing Organization Address [facility] de Phone Number HISTORICAL RESULTS * (ABNORMAL) Blood glucose, POC (01/24/2013 4:10 PM EMT DRIVER) Glucose, POC, bld 380(H) 65 - 199 mg/dl HISTORICAL RESULTS Blood specimen (specimen) 01/24/2013 4:10 PM EMT DRIVER Josué Del Valle MD PhD LAB BLOOD ORDERABLES Fin al Result Performing Organization Address [facility] de Phone Number HISTORICAL RESULTS * Urine sodium (01/24/2013 3:15 PM EMT DRIVER) Sodium, ur 46 mmol/L HISTORICA L RESULTS Urine 01/24/2013 3:15 PM EMT DRIVER us Michael Abdalla MD LAB BLOOD ORDERABLES Pilar l Result Performing Organization Address [facility] de Phone Number HISTORICAL RESULTS * Urine urea nitrogen (01/24/2013 3:15 PM EMT DRIVER) Urea nitrogen, ur 505 mg/dl HISTORICAL RESULTS Urine 01/24/2013 3:15 PM EMT DRIVER Michael Abdalla MD LAB BLOOD ORDERABLES Pilar l Result Performing Organization Address [facility] de Phone Number HISTORICAL RESULTS * Urine potassium (01/24/2013 3:15 PM EMT DRIVER) Potassium, ur 40 mmol/L HISTOR ICAL RESULTS Urine 01/24/2013 3:15 PM EMT DRIVER Michael Abdalla MD LAB BLOOD ORDERABLES Pilar l Result Performing Organization Address [facility] Co de Phone Number HISTORICAL RESULTS * Urine chloride (01/24/2013 3:15 PM EMT DRIVER) Chloride, ur 63 mmol/L HISTORI RHODA RESULTS Urine 01/24/2013 3:15 PM EMT DRIVER Michael Abdalla MD LAB BLOOD ORDERABLES Pilar l Result Performing Organization Address [facility] de Phone Number HISTORICAL RESULTS * Urine creatinine (01/24/2013 3:15 PM EMT DRIVER) Creatinine, ur 55.68 mg/dl HISTO RICAL RESULTS Urine 01/24/2013 3:15 PM EMT DRIVER Michael Abdalla MD LAB BLOOD ORDERABLES Pilar l Result Performing Organization Address [facility] de Phone Number HISTORICAL RESULTS * (ABNORMAL) Plasma basic metabolic panel (01/24/2013 12:30 PM EMT DRIVER) Sodium 143 135 - 145 mmol/L HISTORICAL RESULTS K, pl 4.6 3.3 - 4.9 mmol/L HISTORICAL RESULTS Chloride 109 97 - 110 mmol/L HISTORICAL RESULTS CO2 22 22 - 32 mmol/L HISTORICAL RESULTS A. gap 12 0 - 16 mmol/L HISTORICAL RESULTS Glucose 322(H) 65 - 199 mg/dl HISTORICAL RESULTS BUN 39(H) 8 - 25 mg/dl HISTORICAL RESULTS Creatinine 1.50(H) 0.70 - 1.30 mg/dl HISTORICAL RESULTS Calcium 7.2(L) 8.6 - 10.3 mg/dl HISTORICAL RESULTS Plasma 01/24/2013 12:3 0 PM EMT DRIVER Historical Provider LAB BLOOD ORDERABLES Pilar l Result Performing Organization Address [facility] de Phone Number HISTORICAL RESULTS * (ABNORMAL) Serum lipase (01/24/2013 12:30 PM EMT DRIVER) Lip 718(C) 0 - 99 Units/L HISTORICAL RESULTS Serum 01/24/2013 12:3 0 PM EMT DRIVER Alfonso Pa MD LAB BLOOD ORDERABLES Final Result Performing Organization Address [facility] de Phone Number HISTORICAL RESULTS * Critical result call back (01/24/2013 12:30 PM EMT DRIVER) Date notified 01/24/2013 HISTO RICAL RESULTS Time notified 1432 HISTOR ICAL RESULTS Test name Lipase HISTORICAL RESULTS Called to Cheryl ARELLANO L RESULTS Credentials RN HISTORIC AL RESULTS Called by Waqar HISTORICAL RESULTS No specimen 01/24/2013 12:3 0 PM EMT DRIVER Alfonso Pa MD LAB BLOOD ORDERABLES Final Result Performing Organization Address [facility] de Phone Number HISTORICAL RESULTS * (ABNORMAL) Blood glucose, POC (01/24/2013 12:09 PM EMT DRIVER) Glucose, POC, bld 346(H) 65 - 199 mg/dl HISTORICAL RESULTS Blood specimen (specimen) 01/24/2013 12:09 PM EMT DRIVER Josué Del Valle MD PhD LAB BLOOD ORDERABLES Fin al Result Performing Organization Address [facility] de Phone Number HISTORICAL RESULTS * (ABNORMAL) Blood gas, point of care, arterial (01/24/2013 10:42 AM EMT DRIVER) Sodium, bld 139 135 - 145 mmol/L HISTORICAL RESULTS Ph, art 7.32(L) 7.35 - 7.45 HISTORICAL RESULTS Potassium, bld 4.6 3.3 - 4.9 mmol/L HISTORICAL RESULTS PCO2 43 35 - 45 mm Hg HISTORICAL RESULTS Ca, ionized, bld 3.97(L) 4.50 - 5.10 mg/dl HISTORICAL RESULTS PO2, art 76(L) 80 - 105 mm Hg HISTORICAL RESULTS Hct 39.0(L) 40.7 - 50.3 % HISTORICAL RESULTS Glu, art 299(H) 65 - 199 mg/dl HISTORICAL RESULTS HCO3, art 22 18 - 28 mmol/L HISTORICAL RESULTS CO2, calc, art 24 20 - 30 mmol/L HISTORICAL RESULTS BE, art -3.8 mmol/L HISTORICAL RESULTS O2 sat, art 94(L) 95 - 98 % HISTORIC AL RESULTS Arterial blood 01/24/2013 10 :42 AM EMT DRIVER Josué Del Valle MD PhD LAB BLOOD ORDERABLES Fin al Result HISTORICAL RESULTS * (ABNORMAL) Blood glucose, POC (01/24/2013 8:17 AM EMT DRIVER) Glucose, POC, bld 241(H) 65 - 199 mg/dl HISTORICAL RESULTS Blood specimen (specimen) 01/24/2013 8:17 AM EMT DRIVER Josué Del Valle MD PhD LAB BLOOD ORDERABLES Fin al Result HISTORICAL RESULTS * (ABNORMAL) Blood gas, point of care, arterial (01/24/2013 6:01 AM EMT DRIVER) Ph, art 7.18(C) 7.35 - 7.45 HISTORICAL RESULTS PCO2 47(H) 35 - 45 mm Hg HISTORICAL RESULTS PO2, art 437(H) 80 - 105 mm Hg HISTORICAL RESULTS Sodium, bld 138 135 - 145 mmol/L HISTORICAL RESULTS Potassium, bld 5.3(H) 3.3 - 4.9 mmol/L HISTORICAL RESULTS Ca, ionized, bld 4.17(L) 4.50 - 5.10 mg/dl HISTORICAL RESULTS Hct 40.0(L) 40.7 - 50.3 % HISTORICAL RESULTS Glu, art 216(H) 65 - 199 mg/dl HISTORICAL RESULTS HCO3, art 18 18 - 28 mmol/L HISTORICAL RESULTS CO2, calc, art 19(L) 20 - 30 mmol/L HISTORICAL RESULTS BE, art -10.7 mmol/L HISTORICAL RESULTS O2 sat, art 100(H) 95 - 98 % HISTORIC AL RESULTS Arterial blood 01/24/2013 6: 01 AM EMT DRIVER Josué Del Valle MD PhD LAB BLOOD ORDERABLES Fin al Result Performing Organization Address [facility] de Phone Number HISTORICAL RESULTS * Plasma lactic acid (01/24/2013 4:48 AM EMT DRIVER) Lactic acid 1.5 0.7 - 2.1 mmol/L HISTORICAL RESULTS Plasma 01/24/2013 4:48 AM EMT DRIVER Dayron Palomares LAB BLOOD ORDERABLES Final Resul t Performing Organization Address [facility] Phone Number HISTORICAL RESULTS * (ABNORMAL) Blood gas, point of care, venous (01/24/2013 4:05 AM EMT DRIVER) pH, eriberto 7.16(C) HISTORICAL RESULTS PCO2, eriberto 50 mm Hg HISTORICAL RESULTS PO2, eriberto 44 mm Hg HISTORICAL RESULTS Sodium, bld 137 135 - 145 mmol/L HISTORICAL RESULTS Potassium, bld 5.4(H) 3.3 - 4.9 mmol/L HISTORICAL RESULTS Ca, ionized, bld 4.01(L) 4.50 - 5.10 mg/dl HISTORICAL RESULTS Hct 44.0 40.7 - 50.3 % HISTORICAL RESULTS Glu, art 231(H) 65 - 199 mg/dl HISTORICAL RESULTS HCO3, eriberto 18(L) 20 - 30 mmol/L HISTORICAL RESULTS CO2, eriberto, calc 19(L) 22 - 32 mmol/L HISTORICAL RESULTS BE,eriberto -10.9 mmol/L HISTORICAL RESULTS Oxyhb, eriberto 65 60 - 85 % HISTORICA L RESULTS Venous blood 01/24/2013 4:05 AM EMT DRIVER Josué Del Valle MD PhD LAB BLOOD ORDERABLES Fin al Result Performing Organization Address [facility] de Phone Number HISTORICAL RESULTS * XR Chest 1 Vw (01/24/2013 3:44 AM EMT DRIVER) Anatomical Region Laterality Modality Body, Chest N/A Radiographic Tiffany ging 01/24/2013 3:44 AM EMT DRIVER Narrative 01/24/2013 10:40 AM EMT DRIVER Toño RHODES M.D. HO FINAL REPORT The radiology attending physician has personally reviewed this study, and has reviewed and/or edited this written report and agrees with it. ACC# ??Date Time ??Exam [id number] Jan 24, 2013 03:44:00 [id number] Chest 1 view Frontal EXAMINATION: ?? CHEST 1 VIEW COMPARISON: 01/23/2013 IMPRESSION: ?? There has been interval placement of a right-sided peripherally inserted central catheter with the tip projecting in the distal superior vena cava. The heart size is within normal limits. There has been interval increase in patchy bibasilar airspace opacities like representing increased bibasilar atelectasis. There may be a small left pleural effusion without definite right pleural effusion. There is no pneumothorax. Requested By: MICHAEL ABDALLA M.D. Dictated By: ?? Toño CARABALLO ??on Jan ??2012 ??8:00A This document has been electronically signed by: GREGORIA TRINIDAD M.D. on Jan ??2012 10:39A Procedure Note Provider, MD Shmuel - 03/22/2017 Toño RHODES M.D. HO FINAL REPORT The radiology attending physician has personally reviewed this study, and has reviewed and/or edited this written report and agrees with it. ACC# Date Time Exam [id number] Jan 24, 2013 03:44:00 [id number] Chest 1 view Frontal EXAMINATION: CHEST 1 VIEW COMPARISON: 01/23/2013 IMPRESSION: There has been interval placement of a right-sided peripherally inserted central catheter with the tip projecting in the distal superior vena cava. The heart size is within normal limits. There has been interval increase in patchy bibasilar airspace opacities like representing increased bibasilar atelectasis. There may be a small left pleural effusion without definite right pleural effusion. There is no pneumothorax. Requested By: MICHAEL ABDALLA M.D. Dictated By: Toño CARABALLO on Jan 24 2013 8:00A This document has been electronically signed by: GREGORIA TRINIDAD M.D. on Jan 24 2013 10:39A us Historical Provider MD [facility] XR PROCEDURES Final R esult * (ABNORMAL) Plasma comprehensive metabolic panel (01/24/2013 2:00 AM EMT DRIVER) Pathologist [facility] Sodium 140 135 - 145 mmol/L HISTORICAL RESULTS K, pl 5.6(H) 3.3 - 4.9 mmol/L HISTORICAL RESULTS Chloride 113(H) 97 - 110 mmol/L HISTORICAL RESULTS CO2 16(L) 22 - 32 mmol/L HISTORICAL RESULTS A. gap 11 0 - 16 mmol/L HISTORICAL RESULTS Glucose 239(H) 65 - 199 mg/dl HISTORICAL RESULTS BUN 39(H) 8 - 25 mg/dl HISTORICAL RESULTS Creatinine 1.85(H) 0.70 - 1.30 mg/dl HISTORICAL RESULTS Calcium 7.3(L) 8.6 - 10.3 mg/dl HISTORICAL RESULTS Protein, pl 5.2(L) 6.5 - 8.5 g/dl HISTORICAL RESULTS Alb 2.7(L) 3.6 - 5.0 g/dl HISTORICAL RESULTS Bilirubin 0.6 0.3 - 1.1 mg/dl HISTORICAL RESULTS Alk phos 79 38 - 126 Units/L HISTORICAL RESULTS AST 38 11 - 47 Units/L HISTORICAL RESULTS ALT 43 7 - 53 Units/L HISTORICAL RESULTS Plasma 01/24/2013 2:00 AM EMT DRIVER us Dayron Whitley [facility] LAB BLOOD ORDERABLES Final Resul t HISTORICAL RESULTS * (ABNORMAL) Blood cell count (CBC) (01/24/2013 2:00 AM EMT DRIVER) Pathologist [facility] WBC 23.9(H) 3.8 - 9.8 K/cumm HISTORICAL RESULTS RBC 4.10(L) 4.50 - 5.70 M/cumm HISTORICAL RESULTS Hgb 14.7 13.8 - 17.2 g/dl HISTORICAL RESULTS Hct 44.4 40.7 - 50.3 % HISTORICAL RESULTS MCV 108.1(H) 80.0 - 97.6 fl HISTORICAL RESULTS MCH 35.8(H) 26.7 - 33.7 pg HISTORICAL RESULTS MCHC 33.1 32.7 - 35.5 g/dl HISTORICAL RESULTS Rdw 13.2 11.8 - 14.6 % HISTORICAL RESULTS Platelets 98(L) 140 - 440 K/cumm HISTORICAL RESULTS MPV 9.0 6.8 - 10.4 fl HISTORICAL RESULTS Neutrophils 93.8(H) 38.7 - 74.5 % HISTORICAL RESULTS Lymphocytes 2.1(L) 20.0 - 54.3 % HISTORICAL RESULTS Monos 4.1(L) 4.3 - 13.5 % HISTORICAL RESULTS Eosinophils 0.0 0.0 - 6.0 % HISTORICAL RESULTS Basophils 0.0 0.0 - 3.0 % HISTORICAL RESULTS Neutrophils, abs 22.8(H) 1.8 - 6.6 K/cumm HISTORICAL RESULTS Lymphocytes, abs 0.5(L) 1.2 - 3.3 K/cumm HISTORICAL RESULTS Monocytes, absolute 1.0 0.2 - 1.2 K/cumm HISTORICAL RESULTS Eosinophils, abs 0.0 0.0 - 0.5 K/cumm HISTORICAL RESULTS Basophils, abs 0.0 0.0 - 0.2 K/cumm HISTORICAL RESULTS Blood specimen (specimen) 01/24/2013 2:00 AM EMT DRIVER [employer] LAB BLOOD ORDERABLES Final Resul t Performing Organization Address [facility] de Phone Number HISTORICAL RESULTS * Blood cell morphologic exam (01/24/2013 2:00 AM EMT DRIVER) Pathologist [facility] Morphology scrn Original results obtained required verification by alternate method(s). Refer to CBC and/or observation sections for detailed results HISTORICAL RESULTS Blood specimen (specimen) 01/24/2013 2:00 AM EMT DRIVER [employer] LAB BLOOD ORDERABLES Final Resul t Performing Organization Address [facility] Co de Phone Number HISTORICAL RESULTS * (ABNORMAL) Blood glucose, POC (01/24/2013 1:56 AM EMT DRIVER) Glucose, POC, bld 237(H) 65 - 199 mg/dl HISTORICAL RESULTS Blood specimen (specimen) 01/24/2013 1:56 AM EMT DRIVER Josué Del Valle MD PhD LAB BLOOD ORDERABLES Fin al Result Performing Organization Address [facility] de Phone Number HISTORICAL RESULTS * (ABNORMAL) Blood gas, point of care, arterial (01/24/2013 1:56 AM EMT DRIVER) Ph, art 7.15(C) 7.35 - 7.45 HISTORICAL RESULTS Glu, art 230(H) 65 - 199 mg/dl HISTORICAL RESULTS PCO2 50(H) 35 - 45 mm Hg HISTORICAL RESULTS HCO3, art 17(L) 18 - 28 mmol/L HISTORICAL RESULTS PO2, art 86 80 - 105 mm Hg HISTORICAL RESULTS CO2, calc, art 19(L) 20 - 30 mmol/L HISTORICAL RESULTS Sodium, bld 136 135 - 145 mmol/L HISTORICAL RESULTS BE, art -11.5 mmol/L HISTORICAL RESULTS Potassium, bld 5.4(H) 3.3 - 4.9 mmol/L HISTORICAL RESULTS O2 sat, art 93(L) 95 - 98 % HISTORIC AL RESULTS Ca, ionized, bld 4.01(L) 4.50 - 5.10 mg/dl HISTORICAL RESULTS Hct 45.0 40.7 - 50.3 % HISTORICAL RESULTS Arterial blood 01/24/2013 1: 56 AM EMT DRIVER Josué Del Valle MD PhD LAB BLOOD ORDERABLES Fin al Result Performing Organization Address [facility] de Phone Number HISTORICAL RESULTS * XR Chest 1 Vw (01/23/2013 7:07 PM EMT DRIVER) Anatomical Region Laterality Modality Body, Chest N/A Radiographic Tiffany ging 01/23/2013 7:07 PM EMT DRIVER Narrative 01/24/2013 4:01 PM EMT DRIVER GREGORIA TRINIDAD M.D. LACEY MOLINA M.D. HO FINAL REPORT The radiology attending physician has personally reviewed this study, and has reviewed and/or edited this written report and agrees with it. ACC# ??Date Time ??Exam [id number] Jan 23, 2013 19:07:00 [id number] Chest 1 view Frontal EXAMINATION: ?? CHEST 1 VIEW COMPARISON: 01/23/2013 at 13: 46 hours IMPRESSION: ?? The heart size is within normal limits. There is a small left pleural effusion with mild bibasilar atelectasis, left greater than right. There is no right pleural effusion. There is no pneumothorax. Requested By: MARISELA SMALLS M.D. Dictated By: ?? Toño CARABALLO ??on Jan ??2012 12:01P This document has been electronically signed by: GREGORIA TRINIDAD M.D. on Jan ??2012 ??4:01P Procedure Note Provider, MD Shmuel - 03/22/2017 Toño RHODES M.D. FINAL REPORT The radiology attending physician has personally reviewed this study, and has reviewed and/or edited this written report and agrees with it. ACC# Date Time Exam [id number] Jan 23, 2013 19:07:00 [id number] Chest 1 view Frontal EXAMINATION: CHEST 1 VIEW COMPARISON: 01/23/2013 at 13: 46 hours IMPRESSION: The heart size is within normal limits. There is a small left pleural effusion with mild bibasilar atelectasis, left greater than right. There is no right pleural effusion. There is no pneumothorax. Requested By: MARISELA SMALLS M.D. Dictated By: Toño CARABALLO on Jan 24 2013 12:01P This document has been electronically signed by: GREGORIA TRINIDAD M.D. on Jan 24 2013 4:01P us Historical Provider MD TAPIA XR PROCEDURES Final R esult * Blood culture (01/23/2013 6:45 PM EMT DRIVER) Blood specimen (specimen) (Peripheral) 01/23/2013 6:45 PM EMT DRIVER 01/23/2013 7:35 PM EMT DRIVER Narrative HISTORICAL RESULTS - 01/29/2013 2:18 AM CDT No growth Historical Provider LAB MICROBIOLOGY - GENERA L ORDERABLES Final Result HISTORICAL RESULTS * Plasma lactic acid (01/23/2013 6:45 PM EMT DRIVER) Pathologist [facility] Lactic acid 1.7 0.7 - 2.1 mmol/L HISTORICAL RESULTS Plasma 01/23/2013 6:45 PM EMT DRIVER Marisela Townsend MD LAB BLOOD ORDERABLES Fin al Result Performing Organization Address City/[facility]/ZIP Co de Phone Number HISTORICAL RESULTS * Serum troponin I (01/23/2013 6:45 PM EMT DRIVER) Pathologist [facility] Troponin I <0.07 0.00 - 0.24 ng/ml HISTORICAL RESULTS Comment: Interpretive Data Normal Range: <0.07 ng/mL: Negative 0.07 - 0.24 ng/mL: Elevated, may be consistent with Myocardial Injury/Ischemia but is nondiagnostic and of equivocal significance. Consider obtaining additional Troponin values. (JAM Kizzy Cardiol 2000; 36:959. Circulation 2000; 102: 1193., 2002; 106: 1893., 2003: 108: 2543) Greater than or equal to 0.25 ng/mL: Positive Troponin, suggest establishing rising or falling pattern and evidence of Cardiac Ischemia for consideration of Myocardial Infarction. Current interpretive data was last revised on 2008. Serum 01/23/2013 6:45 PM EMT DRIVER Marisela Townsend MD LAB BLOOD ORDERABLES Fin al Result HISTORICAL RESULTS * Blood B-type natriuretic peptide (BNP) (01/23/2013 6:45 PM EMT DRIVER) Pathologist [facility] BNP 45 0 - 100 pg/ml HISTORICAL RESULTS Blood specimen (specimen) 01/23/2013 6:45 PM EMT DRIVER Marisela Townsend MD LAB BLOOD ORDERABLES Fin al Result Performing Organization Address [facility] de Phone Number HISTORICAL RESULTS * Blood culture (01/23/2013 6:25 PM EMT DRIVER) Blood specimen (specimen) (Peripheral) 01/23/2013 6:25 PM EMT DRIVER 01/23/2013 7:36 PM EMT DRIVER Narrative HISTORICAL RESULTS - 01/29/2013 2:18 AM CDT No growth us Historical Provider LAB MICROBIOLOGY - GENERA L ORDERABLES Final Result Performing Organization Address [facility] de Phone Number HISTORICAL RESULTS * (ABNORMAL) Blood gas, arterial (01/23/2013 6:25 PM EMT DRIVER) Ph, art 7.24(L) 7.35 - 7.45 HISTORICAL RESULTS PCO2 42 35 - 45 mm Hg HISTORICAL RESULTS PO2, art 122(H) 80 - 105 mm Hg HISTORICAL RESULTS CO2, calc, art 19(L) 21 - 30 mmol/L HISTORICAL RESULTS A-a gradient Not Applicable mm Hg HI STORICAL RESULTS O2, inspired, %, art Not Applicable % HISTORICAL RESULTS Oxygen (O2), inspired fraction (FiO2) Not Applicable liters HISTORICAL RESULTS Arterial blood 01/23/2013 6: 25 PM EMT DRIVER Stepan Mcgarry LAB BLOOD ORDERABLES Final Res ult Performing Organization Address [facility] de Phone Number HISTORICAL RESULTS * (ABNORMAL) Blood glucose, POC (01/23/2013 5:51 PM EMT DRIVER) Glucose, POC, bld 223(H) 65 - 199 mg/dl HISTORICAL RESULTS Gluc, com 1, bld RN Notified HISTORICAL RESULTS Blood specimen (specimen) 01/23/2013 5:51 PM EMT DRIVER Josué Del Valle MD PhD LAB BLOOD ORDERABLES Fin al Result Performing Organization Address [facility] de Phone Number HISTORICAL RESULTS * Urine (aerobic) culture (01/23/2013 4:20 PM EMT DRIVER) Urine (Unknown) 01/23/2013 4 :20 PM EMT DRIVER 01/23/2013 5:44 PM EMT DRIVER Narrative HISTORICAL RESULTS - 01/25/2013 11:35 AM CDT No growth us Historical Provider MD LAB MICROBIOLOGY - GENERA L ORDERABLES Final Result Performing Organization Address [facility] de Phone Number HISTORICAL RESULTS * (ABNORMAL) Urinalysis (01/23/2013 4:20 PM EMT DRIVER) Color, ur Yellow Yellow HISTORICAL RESULTS Clarity, ur Clear Clear HISTORIC AL RESULTS Specific gravity, ur 1.028 1.003 - 1.030 HISTORICAL RESULTS pH, ur 5.5 5.0 - 8.0 HISTORICAL RESULTS Protein, ur Trace Trace HISTORIC AL RESULTS Glucose, ur 4+(A) Negative HISTORIC AL RESULTS Ketones, ur Trace(A) Negative HISTORIC AL RESULTS Bilirubin, ur Negative Negative HISTOR ICAL RESULTS U Blood Trace(A) Negative HISTORICAL RESULTS Urobilinogen, quant, ur <2.0 0.0 - 2.0 mg/dl HISTORICAL RESULTS Nitrites, ur Negative Negative HISTORI RHODA RESULTS Leukocyte esterase, ur Negative Negative HISTORICAL RESULTS Urine 01/23/2013 4:20 PM EMT DRIVER Yusuf Calderon LAB BLOOD ORDERABLES Final Resul t Performing Organization Address [facility] Phone Number HISTORICAL RESULTS * (ABNORMAL) Urine microscopy (01/23/2013 4:20 PM EMT DRIVER) RBC, ur 1 0 - 3 /hpf HISTORICA L RESULTS WBC, ur 0 0 - 5 /hpf HISTORICA L RESULTS Bacteria, ur Trace Trace HISTORI RHODA RESULTS Epithelial cells, renal, ur 0 0 - 0 /hpf HISTORICAL RESULTS Epithelial cells, squamous, ur 3 /lpf HISTORICAL RESULTS Mucus, ur Small /hpf HISTORICAL RESULTS Hyaline casts >2(H) 0 - 0 /lpf HISTO RICAL RESULTS Urine 01/23/2013 4:20 PM EMT DRIVER Yusuf Pleitez Calderon LAB BLOOD ORDERABLES Final Resul t Performing Organization Address [facility] de Phone Number HISTORICAL RESULTS * Critical result call back (01/23/2013 3:10 PM EMT DRIVER) Date notified 01/23/2013 HISTO RICAL RESULTS Time notified 1607 HISTOR ICAL RESULTS Test name Lactate Whole Blood HISTORICAL RESULTS Called to Michelle Mitchell HISTORICAL RESULTS Credentials RN HISTORIC AL RESULTS Called by alberto HISTORICAL RESULTS No specimen 01/23/2013 3:10 PM EMT DRIVER [employer] LAB BLOOD ORDERABLES Final Res ult Performing Organization Address [facility] de Phone Number HISTORICAL RESULTS * (ABNORMAL) Plasma cortisol (01/23/2013 3:10 PM EMT DRIVER) Cortisol 22.6(H) 4.3 - 22.4 mcg/dl HISTORICAL RESULTS Comment: Interpretive Data Normal Range: ??4.3-22.4 mcg/dL; ??Evening: ??Half of morning value. This analyte undergoes marked diurnal variation. ??Ranges indicated apply to morning specimens. Current interpretive data was last revised 2011. Plasma 01/23/2013 3:10 PM EMT DRIVER [employer] LAB BLOOD ORDERABLES Final Res ult Performing Organization Address [facility] de Phone Number HISTORICAL RESULTS * (ABNORMAL) Blood lactic acid (01/23/2013 3:10 PM EMT DRIVER) Lactic acid 4.3(C) 0.7 - 2.1 mmol/L HISTORICAL RESULTS Blood specimen (specimen) 01/23/2013 3:10 PM EMT DRIVER [employer] LAB BLOOD ORDERABLES Final Res ult Performing Organization Address [facility] de Phone Number HISTORICAL RESULTS * XR Chest 1 Vw (01/23/2013 1:51 PM EMT DRIVER) Anatomical Region Laterality Modality Body, Chest N/A Radiographic Tiffany ging 01/23/2013 1:51 PM EMT DRIVER Narrative 01/23/2013 7:08 PM EMT DRIVER BHAVIN GLAZER, M.Ghada LOUIS M.D. H.O. FINAL REPORT The radiology attending physician has personally reviewed this study, and has reviewed and/or edited this written report and agrees with it. ACC# ??Date Time ??Exam [id number] Jan 23, 2013 13:51:00 [id number] Chest 1 view Frontal EXAMINATION: ?? Chest 1 view IMPRESSION: ?? Comparison is made to 01/22/2013 chest radiograph. There is minimal bibasalar atelectasis. The lungs are otherwise clear. There is no pneumonic consolidation, pulmonary edema, pleural effusion or pneumothorax. The heart size and mediastinal contour are normal. Requested By: STEPAN MCGARRY M.D. Dictated By: ?? Toño PULLIAM ??on Jan ??2012 ??3:42P This document has been electronically signed by: BHAVIN KIMBROUGH M.D. on Jan?2012 ??7:08P Procedure Note Provider, MD Shmuel - 03/22/2017 Toño PATINO M.D. H.Jolene. FINAL REPORT The radiology attending physician has personally reviewed this study, and has reviewed and/or edited this written report and agrees with it. ACC# Date Time Exam [id number] Jan 23, 2013 13:51:00 [id number] Chest 1 view Frontal EXAMINATION: Chest 1 view IMPRESSION: Comparison is made to 01/22/2013 chest radiograph. There is minimal bibasalar atelectasis. The lungs are otherwise clear. There is no pneumonic consolidation, pulmonary edema, pleural effusion or pneumothorax. The heart size and mediastinal contour are normal. Requested By: STEPAN MCGARRY M.D. Dictated By: Toño PULLIAM on Jan 23 2013 3:42P This document has been electronically signed by: BHAVIN KIMBROUGH M.D. on Jan 23 2013 7:08P us Historical Provider MD TAPIA XR PROCEDURES Final R esult * Plasma partial thromboplastin time (PTT) (01/23/2013 1:30 PM EMT DRIVER) APTT 26.7 25.0 - 37.0 seconds HISTORICAL RESULTS Comment: Interpretive Data Therapeutic heparin range:60.0 - 94.0 sec based on correlation with therapeutic heparin activity range of 0.3 -0.7 Units/mL. Current interpretive data was last revised on 2011. Plasma 01/23/2013 1:30 PM EMT DRIVER [facility] [employer] LAB BLOOD ORDERABLES Final Res ult Performing Organization Address [facility] de Phone Number HISTORICAL RESULTS * Plasma prothrombin time (PT) (01/23/2013 1:30 PM EMT DRIVER) Prothrombin time (PT) 9.8 9.0 - 12.0 seconds HISTORICAL RESULTS INR 0.96 0.90 - 1.20 HISTORIC AL RESULTS Comment: Interpretive Data Inpatient therapeutic ranges* Atrial fibrillation ?2.0-3.0 INR Venous thrombo-embolism ?2.0-3.0 INR Bioprosthetic heart valve ?* Mechanical heart valve, bileaflet or tilting disk,aortic position ? 2.0-3.0 INR All other,or bileaflet or tilting disk, in mitral position ? 2.5-3.5 INR *See the pharmacy resource directory (PHRED) for an updated copy of the Tool Book at [email or web address] Current Interpretive Data was last revised 2012. Plasma 01/23/2013 1:30 PM [facility] [employer] LAB BLOOD ORDERABLES Final Res ult Performing Organization Address [facility] de Phone Number HISTORICAL RESULTS * (ABNORMAL) Serum calcium, ionized (01/23/2013 1:30 PM EMT DRIVER) Ca, ionized, sr 4.23(L) 4.50 - 5.10 mg/dl HISTORICAL RESULTS Serum 01/23/2013 1:30 PM EMT DRIVER [employer] LAB BLOOD ORDERABLES Final Res ult Performing Organization Address [facility] Co de Phone Number HISTORICAL RESULTS * Serum lipase (01/23/2013 1:30 PM EMT DRIVER) Pathologist [facility] Lip See Comment 0 - 99 Units/L HISTORICAL RESULTS Comment:{Credited, duplicate test.} Serum 01/23/2013 1:30 PM EMT DRIVER [employer] LAB BLOOD ORDERABLES Final Res ult Performing Organization Address [facility] de Phone Number HISTORICAL RESULTS * (ABNORMAL) Plasma comprehensive metabolic panel (01/23/2013 1:30 PM EMT DRIVER) Pathologist [facility] Sodium 141 135 - 145 mmol/L HISTORICAL RESULTS K, pl 4.6 3.3 - 4.9 mmol/L HISTORICAL RESULTS Chloride 108 97 - 110 mmol/L HISTORICAL RESULTS CO2 22 22 - 32 mmol/L HISTORICAL RESULTS A. gap 11 0 - 16 mmol/L HISTORICAL RESULTS Glucose 314(H) 65 - 199 mg/dl HISTORICAL RESULTS BUN 36(H) 8 - 25 mg/dl HISTORICAL RESULTS Creatinine 2.10(H) 0.70 - 1.30 mg/dl HISTORICAL RESULTS Calcium 7.7(L) 8.6 - 10.3 mg/dl HISTORICAL RESULTS Protein, pl 5.4(L) 6.5 - 8.5 g/dl HISTORICAL RESULTS Alb 3.0(L) 3.6 - 5.0 g/dl HISTORICAL RESULTS Bilirubin 0.6 0.3 - 1.1 mg/dl HISTORICAL RESULTS Alk phos 89 38 - 126 Units/L HISTORICAL RESULTS AST 22 11 - 47 Units/L HISTORICAL RESULTS ALT 50 7 - 53 Units/L HISTORICAL RESULTS Plasma 01/23/2013 1:30 PM EMT DRIVER [employer] LAB BLOOD ORDERABLES Final Res ult HISTORICAL RESULTS * (ABNORMAL) Serum lipase (01/23/2013 1:30 PM EMT DRIVER) Lip 2117(C) 0 - 99 Units/L HISTORICAL RESULTS Serum 01/23/2013 1:30 PM EMT DRIVER [facility] [employer] LAB BLOOD ORDERABLES Final Res ult HISTORICAL RESULTS * Critical result call back (01/23/2013 1:30 PM EMT DRIVER) Date notified 01/23/2013 HISTO RICAL RESULTS Time notified 155 HISTOR ICAL RESULTS Test name lipase HISTORICAL RESULTS Called to fermín carreno HISTORICAL RESULTS Credentials RN HISTORIC AL RESULTS Called by pat HISTORICAL RESULTS No specimen 01/23/2013 1:30 PM EMT DRIVER [facility] [employer] LAB BLOOD ORDERABLES Final Res ult Performing Organization Address [facility] Co de Phone Number HISTORICAL RESULTS * (ABNORMAL) Blood cell count (CBC) (01/23/2013 1:30 PM EMT DRIVER) WBC 20.0(H) 3.8 - 9.8 K/cumm HISTORICAL RESULTS RBC 4.77 4.50 - 5.70 M/cumm HISTORICAL RESULTS Hgb 17.2 13.8 - 17.2 g/dl HISTORICAL RESULTS Hct 52.1(H) 40.7 - 50.3 % HISTORICAL RESULTS MCV 109.2(H) 80.0 - 97.6 fl HISTORICAL RESULTS MCH 36.1(H) 26.7 - 33.7 pg HISTORICAL RESULTS MCHC 33.1 32.7 - 35.5 g/dl HISTORICAL RESULTS Rdw 13.1 11.8 - 14.6 % HISTORICAL RESULTS Platelets 103(L) 140 - 440 K/cumm HISTORICAL RESULTS MPV 8.6 6.8 - 10.4 fl HISTORICAL RESULTS Neutrophils 87.9(H) 38.7 - 74.5 % HISTORICAL RESULTS Lymphocytes 10.0(L) 20.0 - 54.3 % HISTORICAL RESULTS Monos 2.0(L) 4.3 - 13.5 % HISTORICAL RESULTS Eosinophils 0.1 0.0 - 6.0 % HISTORICAL RESULTS Basophils 0.0 0.0 - 3.0 % HISTORICAL RESULTS Neutrophils, abs 17.6(H) 1.8 - 6.6 K/cumm HISTORICAL RESULTS Lymphocytes, abs 2.0 1.2 - 3.3 K/cumm HISTORICAL RESULTS Monocytes, absolute 0.4 0.2 - 1.2 K/cumm HISTORICAL RESULTS Eosinophils, abs 0.0 0.0 - 0.5 K/cumm HISTORICAL RESULTS Basophils, abs 0.0 0.0 - 0.2 K/cumm HISTORICAL RESULTS Blood specimen (specimen) 01/23/2013 1:30 PM EMT DRIVER [employer] LAB BLOOD ORDERABLES Final Res ult Performing Organization Address [facility] Co de Phone Number HISTORICAL RESULTS * (ABNORMAL) Blood glucose, POC (01/23/2013 12:11 PM EMT DRIVER) Glucose, POC, bld 334(H) 65 - 199 mg/dl HISTORICAL RESULTS Gluc, com 1, bld RN Notified HISTORICAL RESULTS Blood specimen (specimen) 01/23/2013 12:11 PM EMT DRIVER Josué Del Valle MD PhD LAB BLOOD ORDERABLES Fin al Result Performing Organization Address [facility] Co de Phone Number HISTORICAL RESULTS * (ABNORMAL) Blood glucose, POC (01/23/2013 11:35 AM EMT DRIVER) Glucose, POC, bld 351(H) 65 - 199 mg/dl HISTORICAL RESULTS Gluc, com 1, bld RN Notified HISTORICAL RESULTS Blood specimen (specimen) 01/23/2013 11:35 AM EMT DRIVER Josué Del Valle MD PhD LAB BLOOD ORDERABLES Fin al Result Performing Organization Address [facility] Co de Phone Number HISTORICAL RESULTS * US Abdomen Complete (01/23/2013 11:01 AM EMT DRIVER) Anatomical Region Laterality Modality Abdomen N/A Ultrasound 01/23/2013 11:0 1 AM EMT DRIVER Narrative 01/23/2013 1:47 PM EMT DRIVER Toño PERSON M.D. HO FINAL REPORT The radiology attending physician has personally reviewed this study, and has reviewed and/or edited this written report and agrees with it. ACC# ??Date Time ??Exam [id number] Jan 23, 2013 11:01:00 [id number] Sono Abd Complt EXAMINATION: ?? COMPLETE ABDOMINAL SONOGRAM HISTORY: ??47-year-old man with nausea, vomiting, epigastric pain, and elevated amylase/lipase levels FINDINGS: Comparison is made to prior study dated 06/12/2010. The gallbladder is normal in size. There is mobile sludge with possible tiny stones within the gallbladder lumen. There is no pericholecystic fluid or gallbladder wall thickening to suggest cholecystitis. The liver is normal in size, echotexture, and echogenicity with no focal lesions or intrahepatic duct dilatation. ??There is no surface nodularity. ??The common duct is normal and measures 3 mm in the proximal to mid aspect. The distal aspect is not visualized. There is no hydronephrosis in the visualized portions of the kidneys. The visualized portions of the pancreas appears ill-defined and edematous. There is no peripancreatic fluid collection. The spleen is normal in size. The proximal IVC and aorta are normal. IMPRESSION: ?? 1. Mobile sludge with possible tiny stones within the gallbladder lumen with no sonographic evidence of cholecystitis. 2. Visualized portions of the pancreas appear ill-defined and edematous, which can be seen in the setting of pancreatitis given the patient's elevated amylase and lipase levels. No peripancreatic fluid collection. Requested By: YUSUF CALDERON M.D. Dictated By: ?? Toño BECKHAM ??on Jan ??2012 11:39A This document has been electronically signed by: CINDI SHAW M.D. on Jan ??2012 ??1:47P Procedure Note Provider, MD Shmuel - 03/22/2017 CINDI SHAW M.D. Toño BECKHAM FINAL REPORT The radiology attending physician has personally reviewed this study, and has reviewed and/or edited this written report and agrees with it. [facility]# Date Time Exam [id number] Jan 23, 2013 11:01:00 [id number] Sono Abd Complt EXAMINATION: COMPLETE ABDOMINAL SONOGRAM HISTORY: 47-year-old man with nausea, vomiting, epigastric pain, and elevated amylase/lipase levels FINDINGS: Comparison is made to prior study dated 06/12/2010. The gallbladder is normal in size. There is mobile sludge with possible tiny stones within the gallbladder lumen. There is no pericholecystic fluid or gallbladder wall thickening to suggest cholecystitis. The liver is normal in size, echotexture, and echogenicity with no focal lesions or intrahepatic duct dilatation. There is no surface nodularity. The common duct is normal and measures 3 mm in the proximal to mid aspect. The distal aspect is not visualized. There is no hydronephrosis in the visualized portions of the kidneys. The visualized portions of the pancreas appears ill-defined and edematous. There is no peripancreatic fluid collection. The spleen is normal in size. The proximal IVC and aorta are normal. IMPRESSION: 1. Mobile sludge with possible tiny stones within the gallbladder lumen with no sonographic evidence of cholecystitis. 2. Visualized portions of the pancreas appear ill-defined and edematous, which can be seen in the setting of pancreatitis given the patient's elevated amylase and lipase levels. No peripancreatic fluid collection. Requested By: YUSUF CALDERON M.D. Dictated By: Toño BECKHAM on Jan 23 2013 11:39A This document has been electronically signed by: CINDI SHAW M.D. on Jan 23 2013 1:47P us Historical Provider MD TAPIA US PROCEDURES Final R esult * (ABNORMAL) Blood glucose, POC (01/23/2013 10:00 AM EMT DRIVER) Glucose, POC, bld 376(H) 65 - 199 mg/dl HISTORICAL RESULTS Gluc, com 1, bld RN Notified HISTORICAL RESULTS Blood specimen (specimen) 01/23/2013 10:00 AM EMT DRIVER us Josué Del Valle MD PhD LAB BLOOD ORDERABLES Fin al Result HISTORICAL RESULTS * XR Abdomen 2 VW (01/23/2013 9:47 AM EMT DRIVER) Anatomical Region Laterality Modality Body N/A Radiographic Tiffany ging 01/23/2013 9:47 AM EMT DRIVER Narrative 01/23/2013 1:27 PM EMT DRIVER Toño MIDDLETON M.D. HO FINAL REPORT The radiology attending physician has personally reviewed this study, and has reviewed and/or edited this written report and agrees with it. ACC# ??Date Time ??Exam [id number] Jan 23, 2013 09:47:00 [id number] Abd w Dec Erect EXAMINATION: ?? 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 Supine and decubitus views of the abdomen are compared to the prior examination from 01/22/2013. The bowel gas pattern is normal. No free intraperitoneal air. Requested By: STEPAN MCGARRY ??M.DAngelito Dictated By: ?? Toño MUNIZ ??on Jan ??2012 10:02A This document has been electronically signed by: CIERA VELA M.D. on Jan ??2012 ??1:27P Procedure Note Provider, MD Shmuel - 03/22/2017 Toño MIDDLETON M.D. HO FINAL REPORT The radiology attending physician has personally reviewed this study, and has reviewed and/or edited this written report and agrees with it. ACC# Date Time Exam [id number] Jan 23, 2013 09:47:00 11412 Abd w Dec Erect EXAMINATION: Two-view abdomen, supine and decubitus HISTORY: AML, nausea and vomiting IMPRESSION: Supine and decubitus views of the abdomen are compared to the prior examination from 01/22/2013. The bowel gas pattern is normal. No free intraperitoneal air. Requested By: STEPAN MCGARRY M.D. Dictated By: Toño MUINZ on Jan 23 2013 10:02A This document has been electronically signed by: CIERA VELA M.D. on Jan 23 2013 1:27P us Historical Provider MD TAPIA XR PROCEDURES Final R esult * (ABNORMAL) Blood cell count [CBC] express (01/23/2013 7:00 AM EMT DRIVER) WBC 21.3(H) 3.8 - 9.8 K/cumm HISTORICAL RESULTS RBC 5.03 4.50 - 5.70 M/cumm HISTORICAL RESULTS Hgb 18.4(H) 13.8 - 17.2 g/dl HISTORICAL RESULTS Hct 54.3(H) 40.7 - 50.3 % HISTORICAL RESULTS MCV 108.0(H) 80.0 - 97.6 fl HISTORICAL RESULTS MCH 36.5(H) 26.7 - 33.7 pg HISTORICAL RESULTS MCHC 33.8 32.7 - 35.5 g/dl HISTORICAL RESULTS Rdw 13.0 11.8 - 14.6 % HISTORICAL RESULTS Platelets 105(L) 140 - 440 K/cumm HISTORICAL RESULTS MPV 8.9 6.8 - 10.4 fl HISTORICAL RESULTS Blood specimen (specimen) 01/23/2013 7:00 AM EMT DRIVER Yusuf Pleitez [facility] LAB BLOOD ORDERABLES Final Resul t HISTORICAL RESULTS * Blood tacrolimus (FK-506) drug level (01/23/2013 6:00 AM EMT DRIVER) Tacrolimus 5.2 ng/ml HISTORICA L RESULTS Comment: Interpretive Data This test was developed using an analyte specific reagent. ??Its performance characteristics were determined by the [facility] in a manner consistent with CLIA requirements. This test has not been cleared or approved by the U.S. Food and Drug Administration. Current interpretive data was last revised on 2012. Blood specimen (specimen) 01/23/2013 6:00 AM EMT DRIVER us Yusuf Calderon LAB BLOOD ORDERABLES Final Resul t HISTORICAL RESULTS * (ABNORMAL) Blood glucose, POC (01/23/2013 12:01 AM EMT DRIVER) Glucose, POC, bld 359(H) 65 - 199 mg/dl HISTORICAL RESULTS Blood specimen (specimen) 01/23/2013 12:01 AM EMT DRIVER us Tiffanie Mckeon MD LAB BLOOD ORDERABLES Pilar l Result HISTORICAL RESULTS * All Microbiology Report Section (01/23/2013 12:00 AM EMT DRIVER) 01/23/2013 Narrative HISTORICAL RESULTS - 01/29/2013 3:37 AM CDT ? [facility] ?[address] [facility] [address] ?[place], [place] [address] ? Patient Name: ??KAMRON, BRI Denton ? Med Rec Number: [id number] ? Fin Number: ?[id number] ? Date: ?1965 ? Sex/Age: ? Male 47 years ? Admit Date: ?01/22/2013 ? Discharge Date: ? Doctor: ?Josué Del Valle ? Facility: ?[facility] ? Location: ?6900 [address] 01 ?* Abnormal ??A Alert ??f Footnote ??^ Corrected ??L Low ??H High ?i Interp Data ??@ Ref Lab ? Chart Type:Cumulative ?* * * * MICROBIOLOGY - URINE * * * * ?PROCEDURE: Urine Culture ? SOURCE: Urine ? COLLECTED: 01/23/13 ??1620 ?BODY SITE: ? STARTED: 01/23/13 ??1744 ? FREE TEXT SOURCE: ? FINAL REPORT ? REPORTED: 01/25/13 1135 ? No growth us Historical Provider MD LAB MICROBIOLOGY - GENERA L ORDERABLES Final Result HISTORICAL RESULTS * All Microbiology Report Section (01/23/2013 12:00 AM EMT DRIVER) 01/23/2013 Narrative HISTORICAL RESULTS - 01/29/2013 3:37 AM CDT ? [facility] ?[address] [facility] [address] ?[place], [place] [address] ? Patient Name: ??KAMRON RBI Denton ? Med Rec Number: [id number] ? Fin Number: ?[id number] ? Date: ?1965 ? Sex/Age: ? Male 47 years ? Admit Date: ?01/22/2013 ? Discharge Date: ? Doctor: ?Josué Del Valle ? Facility: ?[facility] ? Location: ?6900 [address] 01 ?* Abnormal ??A Alert ??f Footnote ??^ Corrected ??L Low ??H High ?i Interp Data ??@ Ref Lab ? Chart Type:Cumulative ?* * * * MICROBIOLOGY - BLOOD/STERILE FLUID * * * * ?PROCEDURE: Aerobic, Anaerobic and Mycology Culture, Blood ? SOURCE: Blood ? COLLECTED: 01/23/13 ??1825 ?BODY SITE: Peripheral ? STARTED: 01/23/13 ??1936 ? FREE TEXT SOURCE: ? FINAL REPORT ? REPORTED: 01/29/13217 ? No growth us Historical Provider MD LAB MICROBIOLOGY - GENERA L ORDERABLES Final Result HISTORICAL RESULTS * All Microbiology Report Section (01/23/2013 12:00 AM EMT DRIVER) 01/23/2013 Narrative HISTORICAL RESULTS - 01/29/2013 3:37 AM CDT ? [facility] ?[address] [facility] [address] ?[place] [address] ? Patient Name: ??BRI JONES ? Med Rec Number: [id number] ? Fin Number: ?[id number] ? Date: ?1965 ? Sex/Age: ? Male 47 years ? Admit Date: ?01/22/2013 ? Discharge Date: ? Doctor: ?Jessica, Josué F ? Facility: ?[facility] ? Location: ?6900 [address] 01 ?* Abnormal ??A Alert ??f Footnote ??^ Corrected ??L Low ??H High ?i Interp Data ??@ Ref Lab ? Chart Type:Cumulative ?* * * * MICROBIOLOGY - BLOOD/STERILE FLUID * * * * ?PROCEDURE: Aerobic, Anaerobic and Mycology Culture, Blood ? SOURCE: Blood ? COLLECTED: 01/23/13 ??1845 ?BODY SITE: Peripheral ? STARTED: 01/23/13 ??1935 ? FREE TEXT SOURCE: ? FINAL REPORT ? REPORTED: 01/29/13 0218 ? No growth Result [facility] Provider LAB MICROBIOLOGY - GENERA L ORDERABLES Final Result HISTORICAL RESULTS * ELECTROCARDIOGRAPHY (ECG) (01/23/2013) Narrative 01/23/2013 Ordered by an unspecified provider. Result [facility] Provider ECG ORDERABLES Final Res ult * ELECTROCARDIOGRAPHY (ECG) (01/23/2013) Narrative 01/23/2013 Ordered by an unspecified provider. [facility] Provider ECG ORDERABLES Final Res ult * ELECTROCARDIOGRAPHY (ECG) (01/23/2013) Narrative 01/23/2013 Ordered by an unspecified provider. [facility] Provider MD ECG ORDERABLES Final Res ult * ELECTROCARDIOGRAPHY (ECG) (01/23/2013) Narrative 01/23/2013 Ordered by an unspecified provider. [facility] Provider MD ECG ORDERABLES Final Res ult * ELECTROCARDIOGRAPHY (ECG) (01/23/2013) Narrative 01/23/2013 Ordered by an unspecified provider. Result [facility] Provider ECG ORDERABLES Final Res ult * XR Abdomen 2 VW (01/22/2013 11:07 PM EMT DRIVER) Anatomical Region Laterality Modality Body N/A Radiographic Tiffany ging 01/22/2013 11:0 7 PM EMT DRIVER Narrative 01/23/2013 1:27 PM EMT DRIVER Toño MIDDLETON M.D. HO FINAL REPORT The radiology attending physician has personally reviewed this study, and has reviewed and/or edited this written report and agrees with it. ACC# ??Date Time ??Exam [id number] Jan 22, 2013 23:07:00 94653 Abdmn wi Decub &/or Erect EXAMINATION: ?? Two-view abdomen, supine and upright HISTORY: ??AML, nausea and vomiting IMPRESSION: ?? Supine and upright views of the abdomen performed 01/22/2013 demonstrate a normal bowel gas pattern. No free intraperitoneal air. Requested By: YUSUF CALDERON M.D. Dictated By: ?? Toño MUNIZ ??on Jan ??2012 10:01A This document has been electronically signed by: CIERA VELA M.D. on Jan?2012 ??1:27P Procedure Note Provider, MD Shmuel - 03/22/2017 Toño MIDDLETON M.D. HO FINAL REPORT The radiology attending physician has personally reviewed this study, and has reviewed and/or edited this written report and agrees with it. ACC# Date Time Exam [id number] Jan 22, 2013 23:07:00 97030 Abdmn wi Decub &/or Erect EXAMINATION: Two-view abdomen, supine and upright HISTORY: AML, nausea and vomiting IMPRESSION: Supine and upright views of the abdomen performed 01/22/2013 demonstrate a normal bowel gas pattern. No free intraperitoneal air. Requested By: YUSUF CALDERON M.D. Dictated By: Toño MUNIZ on Jan 23 2013 10:01A This document has been electronically signed by: CIERA VELA M.D. on Jan 23 2013 1:27P Historical Provider MD TAPIA XR PROCEDURES Final R esult * Serum Helicobacter pylori ab, IgG (01/22/2013 9:01 PM EMT DRIVER) H. pylori ab, IgG Negative Negative HISTORICAL RESULTS Serum 01/22/2013 9:01 PM EMT DRIVER Yusuf Calderon LAB BLOOD ORDERABLES Final Resul t Performing Organization Address [facility] de Phone Number HISTORICAL RESULTS * (ABNORMAL) Blood hemoglobin A1C (01/22/2013 9:01 PM EMT DRIVER) Hgb A1C 8.7(H) 4.0 - 6.0 % HISTORICAL RESULTS Estimated average glucose 203 mg/dl HISTORICAL RESULTS Comment: The ADA recommends reporting an estimated Average Glucose (eAG) with all Hemoglobin A1c results using the equation derived from a study of 507 normal and diabetic adults. ??Minority populations were underrepresented and children were not included. ??(Diabetes Care 31:3650-7982, 2008). ??The eAG is not equivalent to a fasting glucose. Blood specimen (specimen) 01/22/2013 9:01 PM EMT DRIVER Yusuf Calderon LAB BLOOD ORDERABLES Final Resul t Performing Organization Address [facility] de Phone Number HISTORICAL RESULTS * Serum cholesterol, LDL (01/22/2013 9:01 PM EMT DRIVER) LDL, direct 120 0 - 129 mg/dl HISTORICAL RESULTS Comment: {Hemolyzed; result may be falsely decreased} Interpretive Data Optimal: ? < 100 mg/dL Near Optimal: ?100 - 129 mg/dL Borderline High: ?? 130 - 159 mg/dL High: ?> 160 mg/dL Literature Reference: National Cholesterol Education Program (NCEP) Expert Panel on Detection, Evaluation, and Treatment of High Blood Cholesterol in Adults (Adult Treatment Panel III). ??Circulation 2004; 110:227. Current interpretive data was last revised on 05. Serum 01/22/2013 9:01 PM EMT DRIVER Yusuf Calderon LAB BLOOD ORDERABLES Final Resul t Performing Organization Address [facility] de Phone Number HISTORICAL RESULTS * (ABNORMAL) Plasma hepatic function panel (01/22/2013 9:01 PM EMT DRIVER) Protein, pl 6.6 6.5 - 8.5 g/dl HISTORICAL RESULTS Alb 3.8 3.6 - 5.0 g/dl HISTORICAL RESULTS Bilirubin 0.5 0.3 - 1.1 mg/dl HISTORICAL RESULTS Bilirubin, direct 0.1 0.0 - 0.3 mg/dl HISTORICAL RESULTS Alk phos 117 38 - 126 Units/L HISTORICAL RESULTS AST 24 11 - 47 Units/L HISTORICAL RESULTS ALT 82(H) 7 - 53 Units/L HISTORICAL RESULTS Plasma 01/22/2013 9:01 PM EMT DRIVER Yusuf Pawel Calderon LAB BLOOD ORDERABLES Final Resul t Performing Organization Address [facility] de Phone Number HISTORICAL RESULTS * (ABNORMAL) Serum lipid panel (01/22/2013 9:01 PM EMT DRIVER) Cholesterol 244(H) 0 - 200 mg/dl HISTORICAL RESULTS Comment: Interpretive Data Desirable: ?<200 mg/dL Borderline high: ??200-239 mg/dL High: ? >240 mg/dL Literature Reference: National Cholesterol Education Program (NCEP) Expert Panel on Detection, Evaluation, and Treatment of High Blood Cholesterol in Adults (Adult Treatment Panel III). ??Circulation 2004; 110:227. Current interpretive data was last revised on 2005. Triglycerides 425(H) 0 - 150 mg/dl HISTORICAL RESULTS Comment: Interpretive Data Desirable: ? < 150 mg/dL Borderline High: ? 150 - 199 mg/dL High: ?> 200 mg/dL Literature Reference: See Cholesterol Current interpretive data was last revised on 07. HDL 63 40 - 199 mg/dl HISTORICAL RESULTS Comment: Interpretive Data Less than 40 mg/dL - low; A major risk factor for heart disease. Greater than or equal to 60 mg/dL - High; ??considered protective of heart disease. Literature Reference: See Cholesterol Current interpretive data was last revised on 2008. LDL N/A 0 - 129 mg/dl HISTORICAL RESULTS Comment: {Cannot be calculated; triglycerides above 400 mg/dL.} Interpretive Data Optimal: ? < 100 mg/dL Near Optimal: ?100 - 129 mg/dL Borderline High: ?? 130 - 159 mg/dL High: ?> 160 mg/dL Literature Reference: See Cholesterol Current interpretive data was last revised on 07. Non-HDL cholesterol, calculated 181 mg/dl HISTORICAL RESULTS Comment: Interpretive Data When triglycerides are >200 mg/dL, non-HDL C is a secondary target of therapy, with a goal 30 mg/dL higher than the identified LDL-C goal. Reference: ??See Cholesterol Reference. Current interpretive data was last revised 2012. Serum 01/22/2013 9:01 PM EMT DRIVER Yusuf Calderon LAB BLOOD ORDERABLES Final Resul t Performing Organization Address [facility] de Phone Number HISTORICAL RESULTS * (ABNORMAL) Plasma partial thromboplastin time (PTT) (01/22/2013 9:01 PM EMT DRIVER) APTT 22.4(L) 25.0 - 37.0 seconds HISTORICAL RESULTS Comment: Interpretive Data Therapeutic heparin range:60.0 - 94.0 sec based on correlation with therapeutic heparin activity range of 0.3 -0.7 Units/mL. Current interpretive data was last revised on 2011. Plasma 01/22/2013 9:01 PM EMT DRIVER Yusuf Pawel Calderon LAB BLOOD ORDERABLES Final Resul t Performing Organization Address City/[facility]/ZIP Co de Phone Number HISTORICAL RESULTS * (ABNORMAL) Plasma basic metabolic panel (01/22/2013 9:01 PM EMT DRIVER) Pathologist [facility] Sodium 138 135 - 145 mmol/L HISTORICAL RESULTS K, pl 5.0(H) 3.3 - 4.9 mmol/L HISTORICAL RESULTS Comment: Hemolyzed; (++); potassium value may be falsely elevated by as much as 0.3 - 0.5 mmol/L. Suggest redraw and reanalysis. Chloride 104 97 - 110 mmol/L HISTORICAL RESULTS CO2 14(L) 22 - 32 mmol/L HISTORICAL RESULTS A. gap 20(H) 0 - 16 mmol/L HISTORICAL RESULTS Glucose 333(H) 65 - 199 mg/dl HISTORICAL RESULTS BUN 26(H) 8 - 25 mg/dl HISTORICAL RESULTS Creatinine 0.63(L) 0.70 - 1.30 mg/dl HISTORICAL RESULTS Calcium 9.2 8.6 - 10.3 mg/dl HISTORICAL RESULTS Plasma 01/22/2013 9:01 PM EMT DRIVER Yusuf Calderon LAB BLOOD ORDERABLES Final Resul t Performing Organization Address [facility] de Phone Number HISTORICAL RESULTS * Serum troponin I (01/22/2013 9:01 PM EMT DRIVER) Pathologist [facility] Troponin I <0.07 0.00 - 0.24 ng/ml HISTORICAL RESULTS Comment: Interpretive Data Normal Range: <0.07 ng/mL: Negative 0.07 - 0.24 ng/mL: Elevated, may be consistent with Myocardial Injury/Ischemia but is nondiagnostic and of equivocal significance. Consider obtaining additional Troponin values. (JAM Kizzy Cardiol 2000; 36:959. Circulation 2000; 102: 1193., 2002; 106: 1893., 2003: 108: 2543) Greater than or equal to 0.25 ng/mL: Positive Troponin, suggest establishing rising or falling pattern and evidence of Cardiac Ischemia for consideration of Myocardial Infarction. Current interpretive data was last revised on 2008. Serum 01/22/2013 9:01 PM EMT DRIVER Yusuf Calderon LAB BLOOD ORDERABLES Final Resul t Performing Organization Address [facility] Co de Phone Number HISTORICAL RESULTS * Plasma prothrombin time (PT) (01/22/2013 9:01 PM EMT DRIVER) Prothrombin time (PT) 9.3 9.0 - 12.0 seconds HISTORICAL RESULTS INR 0.92 0.90 - 1.20 HISTORIC AL RESULTS Comment: Interpretive Data Inpatient therapeutic ranges* Atrial fibrillation ?2.0-3.0 INR Venous thrombo-embolism ?2.0-3.0 INR Bioprosthetic heart valve ?* Mechanical heart valve, bileaflet or tilting disk,aortic position ? 2.0-3.0 INR All other,or bileaflet or tilting disk, in mitral position ? 2.5-3.5 INR *See the pharmacy resource directory (PHRED) for an updated copy of the Tool Book at [email or web address] Current Interpretive Data was last revised 2012. Plasma 01/22/2013 9:0 1 PM EMT DRIVER Yusuf Calderon LAB BLOOD ORDERABLES Final Resul t Performing Organization Address [facility] de Phone Number HISTORICAL RESULTS * (ABNORMAL) Serum lipase (01/22/2013 9:01 PM EMT DRIVER) Lip 1770(C) 0 - 99 Units/L HISTORICAL RESULTS Serum 01/22/2013 9:01 PM EMT DRIVER Yusuf Calderon LAB BLOOD ORDERABLES Final Resul t Performing Organization Address [facility] de Phone Number HISTORICAL RESULTS * Critical result call back (01/22/2013 9:01 PM EMT DRIVER) Date notified 01/23/2013 HISTO RICAL RESULTS Time notified 0110 HISTOR ICAL RESULTS Test name lipase HISTORICAL RESULTS Called to balwinder marie HISTORICAL RESULTS Credentials RN HISTORIC AL RESULTS Called by lrw HISTORICAL RESULTS No specimen 01/22/2013 9:01 PM EMT DRIVER Yusuf Calderon LAB BLOOD ORDERABLES Final Resul t HISTORICAL RESULTS * (ABNORMAL) Blood cell count (CBC) (01/22/2013 9:01 PM EMT DRIVER) WBC 23.1(H) 3.8 - 9.8 K/cumm HISTORICAL RESULTS RBC 4.60 4.50 - 5.70 M/cumm HISTORICAL RESULTS Hgb 16.6 13.8 - 17.2 g/dl HISTORICAL RESULTS Hct 49.7 40.7 - 50.3 % HISTORICAL RESULTS MCV 108.1(H) 80.0 - 97.6 fl HISTORICAL RESULTS MCH 36.2(H) 26.7 - 33.7 pg HISTORICAL RESULTS MCHC 33.5 32.7 - 35.5 g/dl HISTORICAL RESULTS Rdw 12.9 11.8 - 14.6 % HISTORICAL RESULTS Platelets 120(L) 140 - 440 K/cumm HISTORICAL RESULTS MPV 8.9 6.8 - 10.4 fl HISTORICAL RESULTS Neutrophils 85.6(H) 38.7 - 74.5 % HISTORICAL RESULTS Lymphocytes 12.5(L) 20.0 - 54.3 % HISTORICAL RESULTS Monos 1.6(L) 4.3 - 13.5 % HISTORICAL RESULTS Eosinophils 0.1 0.0 - 6.0 % HISTORICAL RESULTS Basophils 0.2 0.0 - 3.0 % HISTORICAL RESULTS Neutrophils, abs 19.8(H) 1.8 - 6.6 K/cumm HISTORICAL RESULTS Lymphocytes, abs 2.9 1.2 - 3.3 K/cumm HISTORICAL RESULTS Monocytes, absolute 0.4 0.2 - 1.2 K/cumm HISTORICAL RESULTS Eosinophils, abs 0.0 0.0 - 0.5 K/cumm HISTORICAL RESULTS Basophils, abs 0.1 0.0 - 0.2 K/cumm HISTORICAL RESULTS Blood specimen (specimen) 01/22/2013 9:01 PM EMT DRIVER Yusuf Calderon LAB BLOOD ORDERABLES Final Resul t Performing Organization Address [facility] de Phone Number HISTORICAL RESULTS * Blood ABO, Rh, indirect ab screen (01/22/2013 9:01 PM EMT DRIVER) Ursula, indirect Negative HISTORICAL RESULTS ABO, Rho(D) A Positive HISTORI RHODA RESULTS Blood specimen (specimen) 01/22/2013 9:01 PM EMT DRIVER Yusuf Pleitez Calderon LAB BLOOD ORDERABLES Final Resul t Performing Organization Address [facility] Phone Number HISTORICAL RESULTS * (ABNORMAL) Plasma amylase (01/22/2013 9:01 PM EMT DRIVER) Kait, pl 1045(H) 28 - 100 Units/L HISTORICAL RESULTS Plasma 01/22/2013 9:01 PM EMT DRIVER Yusuf Calderon LAB BLOOD ORDERABLES Final Resul t Performing Organization Address [facility] Phone Number HISTORICAL RESULTS * Blood cell morphologic exam (01/22/2013 9:01 PM EMT DRIVER) Morphology scrn Original results obtained required verification by alternate method(s). Refer to CBC and/or observation sections for detailed results HISTORICAL RESULTS Observation NRBCs present HIST ORICAL RESULTS Blood specimen (specimen) 01/22/2013 9:01 PM EMT DRIVER Result [facility] Yusuf Calderon LAB BLOOD ORDERABLES Final Resul t Performing Organization Address [facility] de Phone Number HISTORICAL RESULTS * ELECTROCARDIOGRAPHY (ECG) (01/22/2013) Narrative 01/22/2013 Ordered by an unspecified provider. Historical Provider ECG ORDERABLES Final Res ult * ELECTROCARDIOGRAPHY (ECG) (01/22/2013) Narrative 01/22/2013 Ordered by an unspecified provider. 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 Acute venous embolism and thrombosis of deep vessels of distal lower extremity (HCC) Acute venous embolism and thrombosis of deep vessels of distal lower extremity Pulmonary collapse Acidosis Glucocorticoid deficiency (HCC) Glucocorticoid deficiency Severe sepsis (HCC) Tobacco use disorder Calculus of bile duct Calculus of bile duct without mention of cholecystitis or obstruction Other specified chronic obstructive airways disease Thrombocytopenia (HCC) Unspecified thrombocytopenia Other hypervolemia Uncontrolled secondary diabetes mellitus Secondary diabetes mellitus without mention of complication, uncontrolled Surgical operation with transplant of whole organ causing abnormal patient reaction, or later complication Adrenal cortical steroids causing adverse effect in therapeutic use Vomiting alone Procedure not carried out for other reasons documented in this encounter 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
--- OUTSIDE RECORDS SUMMARY | 2024-11-22 11:13 | XMS_ITS | Encounter Summary ---
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
--- OUTSIDE RECORDS SUMMARY | 2024-11-22 11:13 | XMS_ITS | Encounter Summary ---
Author Organization [facility] Facility Care Team Providers Care Ironmolder Name Role Phone Unavailable Primary Care Provider Unavailabl e Encounter Details Date Type Department Care Team (Late st Contact Info) Description 09/12/2009 - 09/12/2009 11:59 PM CDT Hospital Encounter [facility] Josué Armenta MD PhD [address] [employer], [address] [place] [address] Follow-up examination; Acute myeloid leukemia (HCC) Social History Tobacco Use Types Packs/Day Years Used Date Smoking Tobacco: Never Assessed Sex and Gender Information Value Date Recorded Sex Assigned at Not on file 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
--- OUTSIDE RECORDS SUMMARY | 2024-11-22 11:13 | XMS_ITS | Encounter Summary ---
Author Organization [facility] Facility Care Team Providers Care Print Production Associate Name Role Phone Unavailable Primary Care Provider Unavailabl e Encounter Details Date Type Department Care Team (Latest Contact Info) Description 11/03/2012 - 11/03/2012 11:59 PM DRIER TENDER [employer] Hospital Encounter [facility] Josué Armenta MD PhD [address] [employer], [address] [address] Personal history of myeloid leukemia; Nonspecific (abnormal) findings on radiological and other examination of lung field; Acute myeloid leukemia in remission (HCC); Disorder of bone and cartilage; History of peripheral stem cell transplant (HCC) Social History Tobacco Use Types Packs/Day Years Used Date Smoking Tobacco: Never Assessed Sex and Gender Information Value Date Recorded Sex Assigned at Not on file Legal Sex Male 10:48 AM DRIER TENDER [employer] Gender Identity Not on file Sexual Orientation [...] as of this encounter Visit Diagnoses Diagnosis Personal history of myeloid leukemia Nonspecific (abnormal) findings on radiological and other examination of lung field Acute myeloid leukemia in remission (HCC) Acute [...]
--- OUTSIDE RECORDS SUMMARY | 2024-11-22 11:14 | XMS_ITS | Encounter Summary ---
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
--- OUTSIDE RECORDS SUMMARY | 2024-11-22 11:14 | XMS_ITS | Encounter Summary ---
Author Organization [facility] Facility Care Team Providers Care Digital Engineer Name Role Phone Unavailable Primary Care Provider Unavailabl e Encounter Details Date Type Department Care Team (Late st Contact Info) Description 09/18/2008 12:01 AM CDT - 10/17/2008 11:59 PM AUTOBODY TECHNICIAN Hospital Encounter [facility] Social History Tobacco Use Types Packs/Day Years Used Date Smoking Tobacco: Never Assessed Sex and Gender Information Value Date Recorded Sex Assigned at Not on file Legal Sex Male 10:48 AM AUTOBODY TECHNICIAN Gender Identity Not on file Sexual Orientation Not on file documented as of this encounter Plan of Treatment Not on file documented as of this encounter Visit Diagnoses Not on filedocumented in this encounter
--- OUTSIDE RECORDS SUMMARY | 2024-11-22 11:14 | XMS_ITS | Encounter Summary ---
Author Organization [facility] Care Team Providers Care Hander In Name Role Phone Unavailable Primary Care Provider Unavailabl e Encounter Details Date Type Department Care Team (Late st Contact Info) Description 04/08/2009 2:53 PM CDT - 04/08/2009 4:00 PM CDT Hospital Encounter 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
--- OUTSIDE RECORDS SUMMARY | 2024-11-22 11:14 | XMS_ITS | Encounter Summary ---
Author Organization [facility] Facility Care Team Providers Care Master Scheduler Name Role Phone Unavailable Primary Care Provider Unavailabl e Encounter Details Date Type Department Care Team (Late st Contact Info) Description 06/01/2008 - 06/01/2008 11:59 PM CDT Hospital Encounter [facility] Neftaly Morelos MD [address] [facility] [address] [place] [address] Social History Tobacco Use Types Packs/Day Years Used Date Smoking Tobacco: Never Assessed Sex and Gender Information Value Date Recorded Sex Assigned at Not on file Legal 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
--- OUTSIDE RECORDS SUMMARY | 2024-11-22 11:14 | XMS_ITS | Encounter Summary ---
Author Organization [facility] Facility Care Team Providers Care Financial Systems Manager Name Role Phone Unavailable Primary Care Provider Unavailabl e Encounter Details Date Type Department Care Team (Late st Contact Info) Description 10/15/2008 2:43 PM CIRCUS ARTIST - 10/26/2008 3:38 PM CIRCUS ARTIST Hospital Encounter [facility]CON[facility] Rafael, Venkata Wagner MD [address] BONE MARROW TRANSPLANT, [address] [address] Neutropenia (HCC); Acute myeloid leukemia in remission (HCC); Thrombocytopenia (HCC); Pulmonary collapse; Examination of participant in clinical trial; Fever presenting with conditions classified elsewhere; Headache; Tobacco use disorder; Anemia Social History Tobacco Use Types Packs/Day Years Used Date Smoking Tobacco: Never Assessed Sex and Gender Information Value Date Recorded Sex Assigned at Not on file Legal Sex Male 10:48 AM CIRCUS ARTIST Gender Identity Not on file Sexual Orientation Not on file documented as of this encounter Plan of Treatment Not on file documented as of this encounter Visit Diagnoses Diagnosis Neutropenia (HCC) Acute myeloid leukemia in remission (HCC) Acute myeloid leukemia in remission Thrombocytopenia (HCC) Unspecified thrombocytopenia Pulmonary collapse Examination of participant in clinical trial Fever presenting with conditions classified elsewhere Headache Tobacco use disorder Anemia Unspecified anemia documented in this encounter
--- OUTSIDE RECORDS SUMMARY | 2024-11-22 11:14 | XMS_ITS | Encounter Summary ---
Author Organization [facility] Facility Care Team Providers Care It Architecture Analyst Name Role Phone Unavailable Primary Care Provider Unavailabl e Encounter Details Date Type Department Care Team (Latest Contact Info) Description 07/13/2008 12:56 PM CDT - 07/18/2008 1:46 PM CDT Hospital Encounter [facility] Sammy Resendiz MD [address] BONE MARROW TRANSPLANT, [address] [address] Encounter for antineoplastic chemotherapy; Acute myeloid leukemia (HCC); Tobacco use disorder Social History Tobacco Use Types Packs/Day Years Used Date Smoking Tobacco: Never Assessed Sex and Gender Information Value Date Recorded Sex Assigned at Not on file 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
--- OUTSIDE RECORDS SUMMARY | 2024-11-22 11:14 | XMS_ITS | Encounter Summary ---
Author Organization [facility] Facility Care Team Providers Care Bus Driver School Name Role Phone Unavailable Primary Care Provider Unavailabl e Encounter Details Date Type Department Care Team (Late st Contact Info) Description 10/01/2008 5:00 PM PAPER MAKER - 10/06/2008 1:44 PM PAPER MAKER Hospital Encounter [facility] Francis York MD PhD [address] [facility] [address] [place] [address] Encounter for antineoplastic chemotherapy; Acute myeloid leukemia in remission (HCC); Acute pharyngitis; Examination of participant in clinical trial Social History Tobacco Use Types Packs/Day Years Used Date Smoking Tobacco: Never Assessed Sex and Gender Information Value Date Recorded Sex Assigned at Not on file 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
--- OUTSIDE RECORDS SUMMARY | 2024-11-22 11:14 | XMS_ITS | Encounter Summary ---
Author Organization [facility] Facility Care Team Providers Care Cardroom Attendant Name Role Phone Unavailable Primary Care Provider Unavailabl e Encounter Details Date Type Department Care Team (Late st Contact Info) Description 06/01/2008 - 11/17/2008 11:59 PM CONCRETE MIXER Hospital Encounter [facility] Rock Lin MD [address] [place] [facility] [address] [place] [id number] Special screening for other conditions; Examination of participant in clinical trial Social History Tobacco Use Types Packs/Day Years Used Date Smoking Tobacco: Never Assessed Sex and Gender Information Value Date Recorded Sex Assigned at Not on file Legal 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
--- OUTSIDE RECORDS SUMMARY | 2024-11-22 11:14 | XMS_ITS | Encounter Summary ---
Author Organization [facility] Care Team Providers Care Hospital Unit Clerk Name Role Phone Unavailable Primary Care Provider Unavailabl e Encounter Details Date Type Department Care Team (Late st Contact Info) Description 05/25/2009 - 05/25/2009 11:59 PM CDT Hospital Encounter [facility] Josué Armenta MD PhD [address] DIV IM BONE MARROW TRANSPLANT, [address] [place] [address] Encounter for fitting and adjustment of non-vascular catheter NEC; Acute myeloid leukemia (HCC) Social History Tobacco Use Types Packs/Day Years Used Date Smoking Tobacco: Never Assessed Sex and Gender Information Value Date Recorded Sex Assigned at Not on file 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
--- OUTSIDE RECORDS SUMMARY | 2024-11-22 11:14 | XMS_ITS | Encounter Summary ---
Author Organization [facility] Care Team Providers Care Javascript Ui Developer Name Role Phone Unavailable Primary Care Provider Unavailabl e Encounter Details Date Type Department Care Team (Latest Contact Info) Description 07/24/2008 10:40 PM CDT - 08/01/2008 12:19 PM CDT Hospital Encounter [facility] Josué Armenta MD PhD [address] BONE MARROW TRANSPLANT, [address] [address] Neutropenia (HCC); Acute myeloid leukemia (HCC); Fever and other physiologic disturbances of temperature regulation; Painful respiration; Periapical abscess without sinus tract Social History Tobacco Use Types Packs/Day Years Used Date Smoking Tobacco: Never Assessed Sex and Gender Information Value Date Recorded Sex Assigned at Not on file 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
--- OUTSIDE RECORDS SUMMARY | 2024-11-22 11:14 | XMS_ITS | Encounter Summary ---
Author Organization [facility] Facility Care Team Providers Care Perfect Bind Machine Operator Name Role Phone Unavailable Primary Care Provider Unavailabl e Encounter Details Date Type Department Care Team (Late st Contact Info) Description 04/13/2009 10:43 AM CDT - 04/13/2009 4:00 PM T Hospital Encounter [facility] Taz Hoffman, ELAN [address] [place] [address] Periapical abscess without sinus tract; Alveolitis of jaw; Acute myeloid leukemia (HCC); Essential hypertension; Tobacco use disorder; Encounter for long-term (current) use of other medications Social History Tobacco Use Types Packs/Day Years Used Date Smoking Tobacco: Never Assessed Sex and Gender Information Value Date Recorded Sex Assigned at Not on file Legal Sex Male 10:48 AM MED ASST Gender Identity Not on file Sexual Orientation Not on file documented as of this encounter Plan of Treatment Not on file documented as of this encounter Visit Diagnoses Diagnosis Periapical abscess without sinus tract Periapical abscess without sinus Alveolitis of jaw Acute myeloid leukemia (HCC) Acute myeloid leukemia, without mention of having achieved remission Essential hypertension Unspecified essential hypertension Tobacco use disorder Encounter for long-term (current) use of other medications documented in this encounter
--- OUTSIDE RECORDS SUMMARY | 2024-11-22 11:14 | XMS_ITS | Encounter Summary ---
Author Organization [facility] Facility Care Team Providers Care Trauma Counsellor Name Role Phone Unavailable Primary Care Provider Unavailabl e Encounter Details Date Type Department Care Team (Late st Contact Info) Description 04/05/2009 - 04/05/2009 11:59 PM CDT Hospital Encounter [facility] Josué Armenta MD PhD [address] DIV IM BONE MARROW TRANSPLANT, [address] [place] [address] Other follow-up examination Social History Tobacco Use Types Packs/Day Years Used Date Smoking Tobacco: Never Assessed Sex and Gender Information Value Date Recorded Sex Assigned at Not on file 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
--- OUTSIDE RECORDS SUMMARY | 2024-11-22 11:14 | XMS_ITS | Encounter Summary ---
Author Organization [facility] Facility Care Team Providers Care Lecturer In Marketing Name Role Phone Unavailable Primary Care Provider Unavailabl e Encounter Details Date Type Department Care Team (Late st Contact Info) Description 08/24/2008 2:34 PM CDT - 08/29/2008 12:25 PM CDT Hospital Encounter [facility] CLIN[facility] Rafael, Venkata Wagner MD [address] DIV BONE MARROW TRANSPLANT, [address] [place] [address] Encounter for antineoplastic chemotherapy; Acute myeloid leukemia (HCC); Examination of participant in clinical trial Social History Tobacco Use Types Packs/Day Years Used Date Smoking Tobacco: Never Assessed Sex and Gender Information Value Date Recorded Sex Assigned at Not on file 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
--- OUTSIDE RECORDS SUMMARY | 2024-11-22 11:14 | XMS_ITS | Encounter Summary ---
Author Organization [facility] Facility Care Team Providers Care Supervisor Grounds Name Role Phone Unavailable Primary Care Provider Unavailabl e Encounter Details Date Type Department Care Team (Late st Contact Info) Description 06/01/2008 5:35 PM CDT - 06/27/2008 1:13 PM CDT [facility] [address] [address] Encounter for antineoplastic chemotherapy; Cellulitis and abscess of face; Acute myeloid leukemia (HCC); Thrombocytopenia (HCC); Other specified disorders of pancreatic internal secretion; Stomatitis and mucositis; Neutropenia (HCC); Tobacco use disorder; Dental caries; Esophageal reflux; Periapical abscess without sinus tract; Pleurisy; Adrenal cortical steroids causing adverse effect in therapeutic use; Unspecified place of occurrence Social History Tobacco Use Types Packs/Day Years Used Date Smoking Tobacco: Never Assessed Sex and Gender Information Value Date Recorded Sex Assigned at Not on file 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 Gender Identity Not on file Sexual Orientation Not on file documented as of this encounter Plan of Treatment Not on file documented as of this encounter Visit Diagnoses Diagnosis Encounter for antineoplastic chemotherapy Cellulitis and abscess of face Acute myeloid leukemia (HCC) Acute myeloid leukemia, without mention of having achieved remission Thrombocytopenia (HCC) Unspecified thrombocytopenia Other specified disorders of pancreatic internal secretion Stomatitis and mucositis Stomatitis and mucositis, unspecified Neutropenia (HCC) Tobacco use disorder Dental caries Unspecified dental caries Esophageal reflux Periapical abscess without sinus tract Periapical abscess without sinus Pleurisy Pleurisy without mention of effusion or current tuberculosis Adrenal cortical steroids causing adverse effect in therapeutic use Unspecified place of occurrence documented in this encounter
--- OUTSIDE RECORDS SUMMARY | 2024-11-22 12:46 | XMS_ITS | Clinical Summary ---
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 11/18/2024 2:38 AM FARM MANAGER 11/18/2024 3:24 AM FARM MANAGER us Josué Del Valle MD PhD LAB BLOOD ORDERABLES Fin al Result Performing Organization Address [facility]/ZIP Co de Phone Number ZULEMA DENT [facility] Department [place] [address] * (ABNORMAL) Manual Differential (11/18/2024 2:38 AM FARM MANAGER) Differential Manual Cells [facility] Neutrophil abs 3.4 1.5 - 6.5 K/cumm [facility] Imm gran abs 0.0 0.0 - 0.1 K/cumm [facility] Lymphocyte abs 2.2 0.8 - 3.3 K/cumm [facility] Monocyte abs 0.3 0.2 - 0.8 K/cumm [facility] Eosinophil abs 0.5 0.0 - 0.5 K/cumm [facility] Basophil abs 0.1 0.0 - 0.1 K/cumm [facility] Neutrophil pct 52.6 % [facility] Comment: Interpretive Data Percent cell count reference ranges are not reported, since discordance with absolute values may lead to misinterpretation of CBC data. Current Interpretive Data was last revised on 2018. Lymphocyte pct 33.6 % [facility] Comment: Interpretive Data Percent cell count reference ranges are not reported, since discordance with absolute values may lead to misinterpretation of CBC data. Current Interpretive Data was last revised on 2018. Monocyte pct 4.3 % [facility] Comment: Interpretive Data Percent cell count reference ranges are not reported, since discordance with absolute values may lead to misinterpretation of CBC data. Current Interpretive Data was last revised on 2018. Eosinophil pct 7.8 % [facility] Comment: Interpretive Data Percent cell count reference ranges are not reported, since discordance with absolute values may lead to misinterpretation of CBC data. Current Interpretive Data was last revised on 2018. Basophil pct 1.7 % [facility] Comment: Interpretive Data Percent cell count reference ranges are not reported, since discordance with absolute values may lead to misinterpretation of CBC data. Current Interpretive Data was last revised on 2018. RBC morphology Present(A) [facility] Anisocytosis Slight(A) [facility] Macrocytes 3-7/HPF(A) [facility] Platelet estimate Adequate [facility] Blood 11/18/2024 2:38 AM FARM MANAGER 11/18/2024 3:24 AM FARM MANAGER us Josué Del Valle MD PhD LAB BLOOD ORDERABLES Fin al Result Performing Organization Address [facility] de Phone Number [facility] [place] [address] * (ABNORMAL) CBC without differential (11/18/2024 2:38 AM FARM MANAGER) [facility] WBC 6.4 3.8 - 9.9 K/cumm Hgb 9.9(L) 13.0 - 17.5 g/dL [facility] Hct 30.0(L) 38.9 - 50.3 % [facility] Plt 254 150 - 400 K/cumm [facility] MPV 10.5 9.1 - 12.3 fL [facility] RBC 2.83(L) 4.30 - 5.80 M/cumm [facility] MCV 106.0(H) 81.3 - 96.4 fL [facility] MCH 35.0(H) 27.1 - 33.3 pg [facility] MCHC 33.0 32.3 - 35.7 g/dL [facility] RDW CV 14.8 11.1 - 14.9 % [facility] RDW SD 58.4(H) 35.7 - 48.1 fL [facility] NRBC abs 0.00 0.00 - 0.01 K/cumm [facility] Blood 11/18/2024 2:38 AM FARM MANAGER 11/18/2024 3:24 AM FARM MANAGER Josué Del Valle MD PhD LAB BLOOD ORDERABLES Fin al Result Performing Organization Address [facility] Co de Phone Number [facility] Department [place] [address] * Phosphorus (11/18/2024 2:38 AM FARM MANAGER) Pathologist [facility] [place] Phosphorus, pl 3.2 2.3 - 4.5 mg/dL Blood 11/18/2024 2:38 AM FARM MANAGER 11/18/2024 3:24 AM FARM MANAGER Josué Del Valle MD PhD LAB BLOOD ORDERABLES Fin al Result Performing Organization Address [facility]/ZIP Co de Phone Number [facility] [place] [address] * Magnesium (11/18/2024 2:38 AM FARM MANAGER) [facility] Magnesium 1.9 1.4 - 2.5 mg/dL Blood 11/18/2024 2:38 AM FARM MANAGER 11/18/2024 3:24 AM FARM MANAGER Josué Del Valle MD PhD LAB BLOOD ORDERABLES Fin al Result Performing Organization Address [facility] de Phone Number [facility] Department [place] [address] * (ABNORMAL) Basic metabolic panel (11/18/2024 2:38 AM FARM MANAGER) [facility] Sodium 143 135 - 145 mmol/L Potassium, pl 4.1 3.3 - 4.9 mmol/L [facility] Chloride 104 97 - 110 mmol/L [facility] CO2 32 22 - 32 mmol/L [facility] Anion gap 7 2 - 15 mmol/L [facility] BUN 20 6 - 25 mg/dL [facility] Creatinine 0.78(L) 0.80 - 1.30 mg/dL [facility] Glucose 117 70 - 199 mg/dL [facility] [...] 2022. Calcium 8.3(L) 8.5 - 10.3 mg/dL [facility] Blood 11/18/2024 2:38 AM FARM MANAGER 11/18/2024 3:24 AM FARM MANAGER Narrative [facility] - 11/18/2024 3:55 AM FARM MANAGER Daily except Saturday and . Morning draw. Josué Del Valle MD PhD LAB BLOOD ORDERABLES Fin al Result Performing Organization Address [facility] Co de Phone Number [facility] [place] [address] * POCT glucose (11/18/2024 12:47 AM FARM MANAGER) Glucose, POC 125 70 - 199 mg/dL Blood 11/18/2024 12:4 7 AM FARM MANAGER 11/18/2024 12:47 AM FARM MANAGER Cruz Redding MD PhD LAB POCT ORDERABLES - DEVICE Final Result Performing Organization Address [facility] de Phone Number [facility] [place] [address] * POCT glucose (11/17/2024 8:11 PM FARM MANAGER) Glucose, POC 135 70 - 199 mg/dL Blood 11/17/2024 8:11 PM FARM MANAGER 11/17/2024 8:11 PM FARM MANAGER Cruz Redding MD PhD LAB POCT ORDERABLES - DEVICE Final Result Performing Organization Address [facility] de Phone Number [facility] [place] [address] * (ABNORMAL) POCT glucose (11/17/2024 5:32 PM FARM MANAGER) Glucose, POC 229(H) 70 - 199 mg/dL Blood 11/17/2024 5:32 PM FARM MANAGER 11/17/2024 5:32 PM FARM MANAGER Cruz Redding MD PhD LAB POCT ORDERABLES - DEVICE Final Result Performing Organization Address [facility] Co de Phone Number [facility] [place] [address] * POCT glucose (11/17/2024 12:03 PM FARM MANAGER) Glucose, POC 156 70 - 199 mg/dL Blood 11/17/2024 12:0 3 PM FARM MANAGER 11/17/2024 12:03 PM FARM MANAGER Cruz Redding MD PhD LAB POCT ORDERABLES - DEVICE Final Result Performing Organization Address [facility] [place] [address] * POCT glucose (11/17/2024 11:14 AM FARM MANAGER) Glucose, POC 174 70 - 199 mg/dL Blood 11/17/2024 11:1 4 AM FARM MANAGER 11/17/2024 11:14 AM FARM MANAGER us Cruz Redding MD PhD LAB POCT ORDERABLES - DEVICE Final Result Performing Organization Address [facility] Co de Phone Number [facility] [place] [address] * POCT glucose (11/17/2024 7:19 AM FARM MANAGER) Glucose, POC 126 70 - 199 mg/dL Blood 11/17/2024 7:19 AM FARM MANAGER 11/17/2024 7:19 AM FARM MANAGER Cruz Redding MD PhD LAB POCT ORDERABLES - DEVICE Final Result Performing Organization Address [facility]/ZIP Co de Phone Number [facility] [place] [address] * POCT glucose (11/17/2024 4:32 AM FARM MANAGER) Glucose, POC 159 70 - 199 mg/dL Blood 11/17/2024 4:32 AM FARM MANAGER 11/17/2024 4:32 AM FARM MANAGER Cruz Redding MD PhD LAB POCT ORDERABLES - DEVICE Final Result Performing Organization Address [facility] de Phone Number ZULEMA [facility] Department [place] [address] * POCT glucose (11/17/2024 12:33 AM FARM MANAGER) Glucose, POC 178 70 - 199 mg/dL Blood 11/17/2024 12:3 3 AM FARM MANAGER 11/17/2024 12:33 AM FARM MANAGER Cruz Redding MD PhD LAB POCT ORDERABLES - DEVICE Final Result Performing Organization Address [facility] de Phone Number ZULEMA [facility] Department [place] [address] * eGFR (11/17/2024 12:31 AM FARM MANAGER) Pathologist [facility] [place] eGFR >90 >=60 mL/min/1. 73 m2 Comment: [...] reviewed 2021. Blood 11/17/2024 12:3 1 AM FARM MANAGER 11/17/2024 12:53 AM FARM MANAGER us Josué Del Valle MD PhD LAB BLOOD ORDERABLES Fin al Result [facility] Department [place] [address] * (ABNORMAL) Manual Differential (11/17/2024 12:31 AM FARM MANAGER) Differential Manual Cells Counted [facility] Neutrophil abs 3.4 1.5 - 6.5 K/cumm [facility] Imm gran abs 0.1 0.0 - 0.1 K/cumm [facility] Lymphocyte abs 2.3 0.8 - 3.3 K/cumm [facility] Monocyte abs 0.6 0.2 - 0.8 K/cumm [facility] Eosinophil abs 0.2 0.0 - 0.5 K/cumm [facility] Neutrophil pct 50.9 % [facility] Comment: Interpretive Data Percent cell count reference ranges are not reported, since discordance with absolute values may lead to misinterpretation of CBC data. Current Interpretive Data was last revised on 2018. Lymphocyte pct 35.1 % [facility] Comment: Interpretive Data Percent cell count reference ranges are not reported, since discordance with absolute values may lead to misinterpretation of CBC data. Current Interpretive Data was last revised on 2018. Monocyte pct 9.6 % [facility] Comment: Interpretive Data Percent cell count reference ranges are not reported, since discordance with absolute values may lead to misinterpretation of CBC data. Current Interpretive Data was last revised on 2018. Eosinophil pct 3.5 % [facility] Comment: Interpretive Data Percent cell count reference ranges are not reported, since discordance with absolute values may lead to misinterpretation of CBC data. Current Interpretive Data was last revised on 2018. Promyelocyte pct 0.9 % [facility] RBC morphology Present(A) [facility] Anisocytosis Marked(A) [facility] Macrocytes > 15/HPF(A) [facility] Platelet estimate Adequate [facility] Blood 11/17/2024 12:3 1 AM FARM MANAGER 11/17/2024 12:49 AM FARM MANAGER us Josué Del Valle MD PhD LAB BLOOD ORDERABLES Arun tamiko Result - Final [facility] Department [place] [address] * (ABNORMAL) CBC without differential (11/17/2024 12:31 AM FARM MANAGER) WBC 6.6 3.8 - 9.9 K/cumm Hgb 11.6(L) 13.0 - 17.5 g/dL [facility] Hct 35.3(L) 38.9 - 50.3 % [facility] Plt 307 150 - 400 K/cumm [facility] MPV 10.5 9.1 - 12.3 fL [facility] RBC 3.38(L) 4.30 - 5.80 M/cumm [facility] MCV 104.4(H) 81.3 - 96.4 fL [facility] MCH 34.3(H) 27.1 - 33.3 pg [facility] MCHC 32.9 32.3 - 35.7 g/dL [facility] RDW CV 14.7 11.1 - 14.9 % [facility] RDW SD 56.7(H) 35.7 - 48.1 fL [facility] NRBC abs 0.00 0.00 - 0.01 K/cumm [facility] Blood 11/17/2024 12:3 1 AM FARM MANAGER 11/17/2024 12:49 AM FARM MANAGER Josué Del Valle MD PhD LAB BLOOD ORDERABLES Fin al Result Performing Organization Address [facility] Co de Phone Number [facility] [place] [address] * Uric acid (11/17/2024 12:31 AM FARM MANAGER) Uric acid 6.0 3.0 - 8.0 mg/dL Blood 11/17/2024 12:3 1 AM FARM MANAGER 11/17/2024 12:46 AM FARM MANAGER us Cruz Redding MD PhD LAB BLOOD ORDERABLE S Final Result Performing Organization Address [facility] [place] [address] * Phosphorus (11/17/2024 12:31 AM FARM MANAGER) Phosphorus, pl 2.7 2.3 - 4.5 mg/dL Blood 11/17/2024 12:3 1 AM FARM MANAGER 11/17/2024 12:46 AM FARM MANAGER Josué Del Valle MD PhD LAB BLOOD ORDERABLES Fin al Result Performing Organization Address [facility] de Phone Number [facility] Department [place] [address] * Magnesium (11/17/2024 12:31 AM FARM MANAGER) Magnesium 1.9 1.4 - 2.5 mg/dL Blood 11/17/2024 12:3 1 AM FARM MANAGER 11/17/2024 12:46 AM FARM MANAGER Josué Del Valle MD PhD LAB BLOOD ORDERABLES Fin al Result Performing Organization Address [facility] Co de Phone Number [facility] Department [place] [address] * Lactate dehydrogenase (LD) (11/17/2024 12:31 AM FARM MANAGER) Pathologist [facility] [place] Lactate dehydrogenase (LDH) 220 100 - 250 Units/L Blood 11/17/2024 12:3 1 AM FARM MANAGER 11/17/2024 12:46 AM FARM MANAGER Cruz Redding MD PhD LAB BLOOD ORDERABLE S Final Result Performing Organization Address [facility] Co de Phone Number [facility] [place] [address] * (ABNORMAL) Hemoglobin A1c (11/17/2024 12:31 AM FARM MANAGER) [facility] Hgb A1C 6.0(H) 4.0 - 5.6 % Estimated Average Glucose 126 mg/dL ZULEMA [facility] Comment: The ADA recommends reporting an estimated Average Glucose (eAG) with all Hemoglobin A1c results using the equation derived from a study of 507 normal and diabetic adults. ??Minority populations were underrepresented and children were not included. ?? (Diabetes Care 2020; 43(S1): S66-S76). ??The eAG is not equivalent to a fasting glucose. Blood 11/17/2024 12:3 1 AM FARM MANAGER 11/17/2024 12:52 AM FARM MANAGER Narrative ZULEMA DENT - 11/17/2024 5:28 PM FARM MANAGER Reflex Cruz Redding MD PhD LAB BLOOD ORDERABLE S Final Result Performing Organization Address [facility] Co de Phone Number [facility] Department [place] [address] * (ABNORMAL) Basic metabolic panel (11/17/2024 12:31 AM FARM MANAGER) Pathologist [facility] [place] Sodium 142 135 - 145 mmol/L Potassium, pl 3.9 3.3 - 4.9 mmol/L ZULEMA [facility] Chloride 101 97 - 110 mmol/L ZULEMA [facility] CO2 33(H) 22 - 32 mmol/L [facility] Anion gap 8 2 - 15 mmol/L [facility] BUN 20 6 - 25 mg/dL [facility] Creatinine 0.66(L) 0.80 - 1.30 mg/dL [facility] Glucose 166 70 - 199 mg/dL [facility] [...] 2022. Calcium 9.4 8.5 - 10.3 mg/dL [facility] Blood 11/17/2024 12:3 1 AM FARM MANAGER 11/17/2024 12:46 AM FARM MANAGER Narrative [facility] - 11/17/2024 1:32 AM FARM MANAGER Daily except Saturday and . Morning draw. us Josué Del Valle MD PhD LAB BLOOD ORDERABLES Fin al Result Performing Organization Address City/[facility]/ZIP Co de Phone Number [facility] Department [place] [address] * (ABNORMAL) POCT glucose (11/16/2024 8:43 PM FARM MANAGER) [facility] Glucose, POC 231(H) 70 - 199 mg/dL Blood 11/16/2024 8:43 PM FARM MANAGER 11/16/2024 8:43 PM FARM MANAGER us Cruz Redding MD PhD LAB POCT ORDERABLES - DEVICE Final Result Performing Organization Address [facility] Co de Phone Number [facility] Department [place] [address] * POCT glucose (11/16/2024 5:06 PM FARM MANAGER) Glucose, POC 120 70 - 199 mg/dL Blood 11/16/2024 5:06 PM FARM MANAGER 11/16/2024 5:06 PM FARM MANAGER us Cruz Redding MD PhD LAB POCT ORDERABLES - DEVICE Final Result ZULEMA [facility] Department [place] [address] * Surgical pathology (11/16/2024 4:53 PM FARM MANAGER) Tissue (Esophageal biopsy) 11/16/2024 4:53 PM FARM MANAGER Narrative PATHOLOGY [facility] - 11/17/2024 3:51 PM FARM MANAGER EPIC results best viewed via link to PDF [facility] Ramonita Jaramillo [facility] [place] [address] Note to Patients: This report may contain [...] ??1965 (Age: 59) Address: ??[address] [place], [place] ??[address] Hospital #: ??[id number] Taken:11/16/2024 Received:11/16/2024 Reported: 11/17/2024 Patient Type: BJ Inpatient ?? Service: Gastroenterology Location: [facility] ??[address] Physician(s): ??MD Kirt Romero, Casi Fernandez.D. Diagnosis: [...] Surgical Pathology and Flow Cytometry Departments at [facility] as part of an ongoing software quality automation engineer program and in compliance with federally mandated [...] Surgical Pathology and Flow Cytometry Departments of [facility]. ??It has not been cleared or approved by the U. S. Food and Drug Administration. IMAGES AND SCANNED DOCUMENTS, IF INCLUDED, ONLY VIEWABLE IN PDF VERSION OF REPORT Hany Martinez MD LAB PATHOLOGY ORDERABLES Final Result PATHOLOGY [facility] 3rd Floor [place], [place] [phone] * EGD (11/16/2024 4:05 PM FARM MANAGER) Anatomical Region Laterality Modality Other Narrative Procedure Note Hany Martinez MD - 11/16/2024 4:05 PM [facility] Patient Name: Bri Jones Procedure Date: 11/16/2024 4:05 PM Date of : 1965 Admit Type: Outpatient Age: 59 Gender: Male Attending MD: Hany Martinez M.D. Room: [facility] ENDOSCOPY Note Status: Finalized Procedure: Upper [...] passed under direct vision. The [id number] endoscope was introduced through the mouth, and [...] ult * POCT glucose (11/16/2024 3:54 PM FARM MANAGER) Glucose, POC 118 70 - 199 mg/dL Blood 11/16/2024 3:54 PM FARM MANAGER 11/16/2024 3:54 PM FARM MANAGER Cruz Redding MD PhD LAB POCT ORDERABLES - DEVICE Final Result Performing Organization Address [facility] Co de Phone Number [facility] [place] [address] * POCT glucose (11/16/2024 11:37 AM FARM MANAGER) Glucose, POC 129 70 - 199 mg/dL Blood 11/16/2024 11:3 7 AM FARM MANAGER 11/16/2024 11:37 AM FARM MANAGER Cruz Redding MD PhD LAB POCT ORDERABLES - DEVICE Final Result Performing Organization Address [facility] Co de Phone Number [facility] [place] [address] * CT Chest Abdomen W Contrast (11/16/2024 10:32 AM FARM MANAGER) Anatomical Region Laterality Modality Body N/A Computed Tomogra phy 11/16/2024 11:0 1 AM FARM MANAGER Impressions 11/16/2024 11:01 AM FARM MANAGER 1. ??Two areas of segmental thickening of [...] Dominique Richmond M.D. 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 ??Patient has erosive esophagitis presenting with [...] post stem cell transplant in 2008 with [id number] disease. Patient has erosive esophagitis presenting with [...] t * POCT glucose (11/16/2024 7:57 AM FARM MANAGER) Glucose, POC 118 70 - 199 mg/dL Blood 11/16/2024 7:57 AM FARM MANAGER 11/16/2024 7:57 AM FARM MANAGER Cruz Redding MD PhD LAB POCT ORDERABLES - DEVICE Final Result ZULEMA DENT [facility] [place] [address] * POCT glucose (11/16/2024 3:55 AM FARM MANAGER) Glucose, POC 123 70 - 199 mg/dL Blood 11/16/2024 3:55 AM FARM MANAGER 11/16/2024 3:55 AM FARM MANAGER us Josué Del Valle MD PhD LAB POCT ORDERABLES - DE VICE Final Result Performing Organization Address [facility] de Phone Number ZULEMA DENT [facility] Department [place] [address] * eGFR (11/16/2024 3:38 AM FARM MANAGER) eGFR >90 >=60 mL/min/1. 73 m2 Comment: [...] last reviewed 2021. Blood 11/16/2024 3:38 AM FARM MANAGER 11/16/2024 4:26 AM FARM MANAGER us Josué Del Valle MD PhD LAB BLOOD ORDERABLES Fin al Result Performing Organization Address [facility] [place] [address] * aPTT (11/16/2024 3:38 AM FARM MANAGER) aPTT 36 28 - 38 sec Comment: Interpretive Data Heparin therapeutic range: 66.0 - 100.0 seconds. Range based on correlation with therapeutic heparin activity range of 0.3 - 0.7 Units/mL. Current interpretive data was last revised on 2023. Blood 11/16/2024 3:38 AM FARM MANAGER 11/16/2024 4:24 AM FARM MANAGER Josué Del Valle MD PhD LAB BLOOD ORDERABLES Fin al Result Performing Organization Address [facility] [place] [address] * (ABNORMAL) Fibrinogen (11/16/2024 3:38 AM FARM MANAGER) Fibrinogen 771(H) 170 - 400 mg/dL Blood 11/16/2024 3:38 AM FARM MANAGER 11/16/2024 4:24 AM FARM MANAGER Josué Del Valle MD PhD LAB BLOOD ORDERABLES Fin al Result Performing Organization Address [facility] Co de Phone Number [facility] [place] [address] * Type and screen (11/16/2024 3:38 AM FARM MANAGER) Ursula, indirect Negative ABO Rh A Positive [facility] Blood 11/16/2024 3:38 AM FARM MANAGER 11/16/2024 4:18 AM FARM MANAGER Narrative [facility] - 11/16/2024 5:10 AM FARM MANAGER Has the patient had Daratumumab or Isatuximab in the past 6 months?->Unknown Josué Del Valle MD PhD LAB BLOOD BANK TEST ORDRoxanne VILLEGAS Final Result Performing Organization Address [facility] [facility] Co de Phone Number [facility] [place] [address] * Uric acid (11/16/2024 3:38 AM FARM MANAGER) Uric acid 5.8 3.0 - 8.0 mg/dL Blood 11/16/2024 3:38 AM FARM MANAGER 11/16/2024 4:26 AM FARM MANAGER Josué Del Valle MD PhD LAB BLOOD ORDERABLES Fin al Result Performing Organization Address [facility] Co de Phone Number [facility] [place] [address] * Phosphorus (11/16/2024 3:38 AM FARM MANAGER) Phosphorus, pl 2.9 2.3 - 4.5 mg/dL Blood 11/16/2024 3:38 AM FARM MANAGER 11/16/2024 4:26 AM FARM MANAGER Josué Del Valle MD PhD LAB BLOOD ORDERABLES Fin al Result Performing Organization Address [facility] de Phone Number [facility] [place] [address] * Magnesium (11/16/2024 3:38 AM FARM MANAGER) Magnesium 1.9 1.4 - 2.5 mg/dL Blood 11/16/2024 3:38 AM FARM MANAGER 11/16/2024 4:26 AM FARM MANAGER Josué Del Valle MD PhD LAB BLOOD ORDERABLES Fin al Result Performing Organization Address [facility] Co de Phone Number [facility] [place] [address] * Lactate dehydrogenase (LD) (11/16/2024 3:38 AM FARM MANAGER) Lactate dehydrogenase (LDH) 205 100 - 250 Units/L Blood 11/16/2024 3:38 AM FARM MANAGER 11/16/2024 4:26 AM FARM MANAGER Josué Del Valle MD PhD LAB BLOOD ORDERABLES Fin al Result [facility] Department [place] [address] * (ABNORMAL) Comprehensive metabolic panel (11/16/2024 3:38 AM FARM MANAGER) Pathologist [facility] [place] Sodium 142 135 - 145 mmol/L Potassium, pl 4.1 3.3 - 4.9 mmol/L [facility] Chloride 100 97 - 110 mmol/L [facility] CO2 32 22 - 32 mmol/L [facility] Anion gap 10 2 - 15 mmol/L [facility] BUN 20 6 - 25 mg/dL [facility] Creatinine 0.67(L) 0.80 - 1.30 mg/dL [facility] Glucose 129 70 - 199 mg/dL [facility] [...] 2022. Calcium 9.9 8.5 - 10.3 mg/dL [facility] Bilirubin, total 0.4 0.1 - 1.2 mg/dL [facility] Protein, pl 7.7 6.5 - 8.5 g/dL [facility] Albumin 4.0 3.5 - 5.0 g/dL [facility] Alk phos 180(H) 40 - 130 Units/L [facility] ALT 54 7 - 55 Units/L [facility] AST 30 10 - 50 Units/L [facility] Blood 11/16/2024 3:38 AM FARM MANAGER 11/16/2024 4:26 AM FARM MANAGER Narrative ZULEMA DENT - 11/16/2024 4:58 AM FARM MANAGER Saturday and only. Morning draw. us Josué Del Valle MD PhD LAB BLOOD ORDERABLES Fin al Result [facility] Department [place] [address] * eGFR (11/16/2024 12:13 AM FARM MANAGER) eGFR >90 >=60 mL/min/1. 73 m2 Comment: [...] reviewed 2021. Blood 11/16/2024 12:1 3 AM FARM MANAGER 11/16/2024 12:32 AM FARM MANAGER us Mark Figueroa MD PhD LAB BLOOD ORDERABLE S Final Result [facility] Department [place] [address] * Differential, auto (11/16/2024 12:13 AM FARM MANAGER) Neutrophil abs 3.6 1.5 - 6.5 K/cumm Imm gran abs 0.0 0.0 - 0.1 K/cumm [facility] Lymphocyte abs 2.8 0.8 - 3.3 K/cumm [facility] Monocyte abs 0.7 0.2 - 0.8 K/cumm [facility] Eosinophil abs 0.2 0.0 - 0.5 K/cumm [facility] Basophil abs 0.1 0.0 - 0.1 K/cumm [facility] Neutrophil pct 49.1 % [facility] Comment: Interpretive Data Percent cell count reference ranges are not reported, since discordance with absolute values may lead to misinterpretation of CBC data. Current Interpretive Data was last revised on 2018. Imm gran pct 0.4 % [facility] Comment: Interpretive Data Percent cell count reference ranges are not reported, since discordance with absolute values may lead to misinterpretation of CBC data. Current Interpretive Data was last revised on 2018. Lymphocyte pct 37.9 % [facility] Comment: Interpretive Data Percent cell count reference ranges are not reported, since discordance with absolute values may lead to misinterpretation of CBC data. Current Interpretive Data was last revised on 2018. Monocyte pct 8.9 % [facility] Comment: Interpretive Data Percent cell count reference ranges are not reported, since discordance with absolute values may lead to misinterpretation of CBC data. Current Interpretive Data was last revised on 2018. Eosinophil pct 3.0 % [facility] Comment: Interpretive Data Percent cell count reference ranges are not reported, since discordance with absolute values may lead to misinterpretation of CBC data. Current Interpretive Data was last revised on 2018. Basophil pct 0.7 % [facility] Comment: Interpretive Data Percent cell count reference ranges are not reported, since discordance with absolute values may lead to misinterpretation of CBC data. Current Interpretive Data was last revised on 2018. Blood 11/16/2024 12:1 3 AM FARM MANAGER 11/16/2024 12:32 AM FARM MANAGER us Mark Figueroa MD PhD LAB BLOOD ORDERABLE S Final Result Performing Organization Address City/[facility]/ZIP Co de Phone Number [facility] Department [place] [address] * (ABNORMAL) CBC with auto differential (11/16/2024 12:13 AM FARM MANAGER) WBC 7.3 3.8 - 9.9 K/cumm Hgb 13.1 13.0 - 17.5 g/dL [facility] Hct 39.0 38.9 - 50.3 % [facility] Plt 314 150 - 400 K/cumm [facility] MPV 10.4 9.1 - 12.3 fL [facility] RBC 3.69(L) 4.30 - 5.80 M/cumm [facility] MCV 105.7(H) 81.3 - 96.4 fL [facility] MCH 35.5(H) 27.1 - 33.3 pg [facility] MCHC 33.6 32.3 - 35.7 g/dL [facility] RDW CV 15.1(H) 11.1 - 14.9 % [facility] RDW SD 58.9(H) 35.7 - 48.1 fL [facility] NRBC abs 0.02(H) 0.00 - 0.01 K/cumm [facility] Blood 11/16/2024 12:1 3 AM FARM MANAGER 11/16/2024 12:32 AM FARM MANAGER us Mark Figueroa MD PhD LAB BLOOD ORDERABLE S Final Result Performing Organization Address [facility]/ZIP Co de Phone Number [facility] Department [place] [address] * Protime-INR (11/16/2024 12:13 AM FARM MANAGER) PT 10.6 9.7 - 13.0 sec INR 0.98 0.90 - 1.20 [facility] Comment: Interpretive data Oral anticoagulant therapeutic ranges: Venous thromboembolism prophylaxis or treatment: 2.0-3.0 CARDIOLOGY Standard range: 2.0-3.0 High-intensity range: 2.5-3.5 Refer to indication-specific guidelines for appropriate target ranges for prosthetic heart valve replacement. Current interpretive data was last revised on 2019. Blood 11/16/2024 12:1 3 AM FARM MANAGER 11/16/2024 12:35 AM FARM MANAGER us Mark Figueroa MD PhD LAB BLOOD ORDERABLE S Final Result [facility] Department [place] [address] * (ABNORMAL) Basic metabolic panel (11/16/2024 12:13 AM FARM MANAGER) Pathologist [facility] [place] Sodium 140 135 - 145 mmol/L Potassium, pl 4.8 3.3 - 4.9 mmol/L [facility] Comment:Hemolyzed; Potassium value may be falsely elevated by as much as 0.3-0.5 mmol/L. Suggest redraw and reanalysis. Chloride 100 97 - 110 mmol/L [facility] CO2 28 22 - 32 mmol/L [facility] Anion gap 12 2 - 15 mmol/L [facility] BUN 19 6 - 25 mg/dL [facility] Creatinine 0.63(L) 0.80 - 1.30 mg/dL [facility] Glucose 133 70 - 199 mg/dL [facility] [...] 2022. Calcium 9.9 8.5 - 10.3 mg/dL [facility] Blood 11/16/2024 12:1 3 AM FARM MANAGER 11/16/2024 12:32 AM FARM MANAGER us Mark Figueroa MD PhD LAB BLOOD ORDERABLE S Final Result Performing Organization Address [facility] Co de Phone Number [facility] Department [place] [address] * POCT glucose (11/16/2024 12:12 AM FARM MANAGER) Glucose, POC 130 70 - 199 mg/dL Blood 11/16/2024 12:1 2 AM FARM MANAGER 11/16/2024 12:12 AM FARM MANAGER Josué Del Valle MD PhD LAB POCT ORDERABLES - DE VICE Final Result Performing Organization Address [facility] Co de Phone Number [facility] Department [place] [address] * Lipid panel (07/14/2024 6:22 PM CDT) [...] ORDERABLES Final R esult Performing Organization Address [facility] Co de Phone Number [facility] [address] [facility] [place] [address] * Albumin Creatinine Ratio, Urine (02/28/2022 8:57 AM CDT) Albumin Ur <12.0 mg/L [facility] Comment: Interpretive Data No reference range established. Current interpretive data was last revised 2019. Creatinine Ur 42.0 mg/dL [facility] Comment: Interpretive Data No reference range established. Current interpretive data was last revised 2019. Albumin Creatinine Ratio, Ur <29 1 - 29 mg/g [facility] Urine 02/28/2022 8:57 AM CDT 02/28/2022 1:[address] Montejo MD LAB URINE ORDERABLES Final Resu lt Performing Organization Address [facility] de Phone Number [facility] Department [place] [address] * Hepatitis panel, acute (09/07/2021 4:28 AM CDT) Pathologist [facility] [place] Hep A IgM Nonreactive Nonreactive [facility] Comment: Interpretive Data: If Hep A IgM Ab is reported as Equivocal, a new sample should be drawn in two weeks for testing. Current interpretive data was last revised on 20. Hep B core IgM Nonreactive Nonreactive [facility] Comment: Interpretive Data If HepB Core IgM Ab is reported as Equivocal, a new sample should be drawn in two weeks for testing. Current interpretive data was last revised on 20. Hep C Ab Nonreactive Nonreactive [facility] Comment:Antibodies to HCV no t detected. Does NOT exclude the possibility of recent exposure to HCV. HepBsAg Nonreactive Nonreactive [facility] Blood 09/07/2021 4:28 AM CDT 09/07/2021 4:44 AM CDT us Anaid Kruse MD LAB MICROBIOL OGY - GENERAL ORDERABLES Edited Result - Final [facility] Department [place] [address] * PSA screen (02/04/2017 8:36 AM CDT) PSA-Total 0.7 0.1 - 4.0 ng/mL [facility] Blood specimen (specimen) 02/04/2017 8:36 AM CDT 02/04/2017 9:05 AM CDT us Josué Del Valle MD PhD LAB BLOOD ORDERABLES Fin al Result Performing Organization Address [facility] Co de Phone Number [facility] Department [place] [address] from Last 3 Months or Most Recently Relevant to Health Maintenance Additional Health Concerns Infection Onset 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 Insurance MEDICARE [employer] MED[employer]ARE [employer] MEDICARE [employer] MED[employer]ARE [employer] Advance Directives For more information, please contact: [phone] * Full Code (Latest Code Status on [...] 11:29 AM 06/24/2024 11:01 PM Care Teams Nail Kegger Relationship Specialty Start Date End Date Kirt Lindsay DO PCP - General Internal Medicine 02/02/21 Josué Del Valle MD PhD Medical Oncologist/Bridal Sales Consultant Medical Oncology 08/26/19 Cal Carranza DO [address] [address] Blacksmith Supervisor Internal Medicine 06/12/23 Halie Khan MD [address] [facility] [address] [place] [address] Geography Head Critical Care Med 06/12/23 Wilfred Kinsey MD [address] [address] Consulting Physician Gastroenterology 03/02/24
--- OUTSIDE RECORDS SUMMARY | 2024-11-22 12:47 | XMS_ITS | Encounter Summary ---
Author Organization [facility] Address [address] [facility] [address] [place] [address] Phone Care Team Providers Care Podiatry Doctor Name Role Phone Josué Del Valle MD PhD Unavailable [phone] Kirt Lindsay DO Primary Care Provider [phone] Cal Carranza DO Unavailable [phone] Halie Khan MD Unavailable [phone] Wilfred Kinsey MD Unavailable Encounter Details Date Type Department Care Team (Late st Contact Info) Description 11/12/2024 Telephone [facility] Infectious Diseases [address] [place] [phone] Anjana Waller LCSW Social History Tobacco Use Types Packs/Day Years Used Date Smoking Tobacco: Some Days Cigarettes 0.5 40.4 Started: 1984 Smokeless Tobacco: Never Comments:pt states tried to quit; smoking 5 cigs/wk [facility] Utilities Answer Date Recorded In the past 12 months has [employer] electric, gas, oil, or water company threatened [...] week 07/24/2024 How often do you attend jewish or sikhism serv ices? Never 07/24/2024 Do you belong [...] place to sleep or slept in a care home (including now)? No 03/30/2024 Housing Stability [...] were you homeless or living in a care home (including now)? No 07/24/2024 Personal Safety Answer Date Recorded Have you ever been in or are you currently in a harmful physical or emotional relationship or is someone making you feel afraid or unsafe? 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 documented as of this encounter Care Teams Podiatry Doctor Relationship Specialty Start Date End Date Kirt Lindsay DO PCP - General Internal Medicine 02/02/21 Josué Del Valle MD PhD Medical Oncologist/Survival Equipment Repairer Medical Oncology 08/26/19 Cal Carranza DO [address] [facility] [address] [place] [address] Neurobiologist Internal Medicine 06/12/23 Halie Khan MD [address] [facility] [address] [place] [address] Land Sales Agent Critical Care Med 06/12/23 Wilfred Kinsey MD [address] [address] Consulting Physician Gastroenterology 03/02/24 documented as of this encounter
--- OUTSIDE RECORDS SUMMARY | 2024-11-22 12:47 | XMS_ITS | Encounter Summary ---
Author Organization [facility] Address [address] [place] [address] Phone Care Team Providers Care Facilities Director Name Role Phone Josué Del Valle MD PhD Unavailable [phone] Kirt Lindsay DO Primary Care Provider [phone] Cal Carranza DO Unavailable [phone] Halie Khan MD Unavailable [phone] Wilfred Kinsey MD Unavailable Encounter Details Date Type Department Care Team (Late st Contact Info) Description 08/24/2024 Orders Only [facility] Infectious Diseases [address] [place] [address] [address] [place] [phone] Martín Pinzon MD [address] [place] [address] Social History Tobacco Use Types Packs/Day Years Used Date Smoking Tobacco: Some Days Cigarettes 0.5 40.4 Started: 1984 Smokeless Tobacco: Never Comments:pt states tried to quit; smoking 5 cigs/wk [facility] Utilities Answer Date Recorded In the past 12 months has th e electric, gas, oil, or water [employer] threatened to shut off services in your home? No 07/24/2024 Social Connection and Isolation Panel [NHANES] A nswer Date Recorded In a typical week, how many times do you talk on the phone with family, friends, or neighbors? Twice a week 07/24/2024 How often do you get together with friends or re latives? Once a week 07/24/2024 How often do you attend rastafarian or tenriism serv ices? Never 07/24/2024 Do you belong to any clubs o r organizations such as rastafarian groups, unions, fraternal or athletic groups, or [...] any time in the past 12 m [facility], were you homeless or living in a prison (including now)? No 07/24/2024 Personal Safety Answer Date Recorded Have you ever been in or are you currently in a harmful physical or emotional relationship or is someone making you feel afraid or unsafe? 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 Male 10:48 AM PRINTER OPERATOR Gender Identity Not on file Sexual Orientation Not on file documented as of this encounter Ordered Prescriptions Prescription Sig Dispense Quantity Refills Last Filled Start Date End Date [facility] clobirdieziVICTORINA barron, (2017-11-147) 50 mg capsule capsule Take 2 capsules (100 mg total) by mouth daily 08/24/2024 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 documented as of this encounter Care Teams Facilities Director Relationship Specialty Start Date End Date Kirt Lindsay DO PCP - General Internal Medicine 02/02/21 Josué Del Valle MD PhD Medical Oncologist/Commissary Steward Medical Oncology 08/26/19 Cal Carranza DO [address] [facility] [address] [place] [address] Motorcycle Racer Internal Medicine 06/12/23 Halie Khan MD [address] [facility] [address] [place] [address] Air Sampler Critical Care Med 06/12/23 Wilfred Kinsey MD [address] [address] Consulting Physician Gastroenterology 03/02/24 documented as of this encounter
--- OUTSIDE RECORDS SUMMARY | 2024-11-22 12:47 | XMS_ITS | Encounter Summary ---
Author Organization [facility] Address [address] [facility] [address] [place] [address] Phone Care Team Providers Care Curriculum Counselor Name Role Phone Josué Del Valle MD PhD Unavailable [phone] Kirt Lindsay DO Primary Care Provider [phone] Cal Carranza DO Unavailable [phone] Halie Khan MD Unavailable [phone] Wilfred Kinsey MD Unavailable Encounter Details Date Type Department Care Team (Late st Contact Info) Description 08/24/2024 Documentation [facility] Infectious Diseases [address] [place] [phone] Page Marsh Social History Tobacco Use Types Packs/Day Years Used Date Smoking Tobacco: Some Days Cigarettes 0.5 40.4 Started: 1984 Smokeless Tobacco: Never Comments:pt states tried to quit; smoking 5 cigs/wk [facility] Utilities Answer Date Recorded In the past 12 months has [employer] electric, gas, oil, or water company threatened [...] How often do you attend yazdanism or hoahaoism serv ices? 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 Gender Identity Not on file Sexual [...] documented as of this encounter Care Teams Curriculum Counselor Relationship Specialty Start Date End Date Kirt Lindsay DO PCP - General Internal Medicine 02/02/21 Josué Del Valle MD PhD Medical Oncologist/Hazardous Waste Technician Medical Oncology 08/26/19 Cal Carranza DO [address] [place] [address] Dealer Development Manager Internal Medicine 06/12/23 Halie Khan MD [address] [facility] [address] [place] [address] Leather Production Worker Critical Care Med 06/12/23 Wilfred Kinsey MD [address] [address] Consulting Physician Gastroenterology 03/02/24 documented as of this encounter
--- OUTSIDE RECORDS SUMMARY | 2024-11-22 12:47 | XMS_ITS | Encounter Summary ---
Author Organization [facility] Address [address] [facility] [address] [place] [address] Phone Care Team Providers Care Inhalation Therapy Teacher Name Role Phone Josué Del Valle MD PhD Unavailable [phone] Kirt Lindsay DO Primary Care Provider [phone] Cal Carranza DO Unavailable [phone] Halie Khan MD Unavailable [phone] Wilfred Kinsey MD Unavailable Encounter Details Date Type Department Care Team (Late st Contact Info) Description 09/01/[address] [facility] Infectious Diseases [address] [place] [phone] Page Marsh Social History Tobacco Use Types Packs/Day Years Used Date Smoking Tobacco: Some Days Cigarettes 0.5 40.4 Started: 1985 Smokeless Tobacco: Never Comments:pt states tried to quit; smoking 5 cigs/wk [facility] Utilities Answer Date Recorded In the past 12 months has [employer] electric, gas, oil, or water company threatened [...] week 07/24/2024 How often do you attend jainism or sikh serv ices? 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 Male 10:48 AM BOTTOM WHEELER Gender Identity Not on file Sexual Orientation [...] documented as of this encounter Care Teams Inhalation Therapy Teacher Relationship Specialty Start Date End Date Kirt Lindsay DO PCP - General Internal Medicine 02/02/21 Josué Del Valle MD PhD Medical Oncologist/Electrical Apprentice Medical Oncology 08/26/19 Dillon Calreed Dorado DO [address] [id number] Personnel Specialist Internal Medicine 06/12/23 Halie Khan MD [address] [facility] [address] [place], [place] [address] Fiber Product Cutting Machine Operator Critical Care Med 06/12/23 Wilfred Kinsey MD [address] [address] Consulting Physician Gastroenterology 03/02/24 documented as of this encounter
--- OUTSIDE RECORDS SUMMARY | 2024-11-22 12:47 | XMS_ITS | Encounter Summary ---
Author Organization [facility] Healthcare Address [address] [place] [address] Care Team Providers Care Casting Operator Name Role Phone Josué Del Valle MD PhD Unavailable [phone] Kirt Lindsay DO Primary Care Provider [phone] Cal Carranza DO Unavailable [phone] Halie Khan MD Unavailable Wilfred Kinsey MD Unavailable Encounter Details Date Type Department Care Team (Late st Contact Info) Description 09/01/2024 Orders Only [facility] Home Care Services [address] [place] [address] Birgit Waldron, [facility] Social History Tobacco Use Types Packs/Day Years Used Date Smoking Tobacco: Some Days Cigarettes 0.5 40.4 Started: 1984 Smokeless Tobacco: Never Comments:pt states tried to quit; smoking 5 cigs/wk [facility] Utilities Answer Date Recorded In the past [...] week 07/24/2024 How often do you attend anabaptism or temple serv ices? 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 documented as of this encounter Care Teams Casting Operator Relationship Specialty Start Date End Date Kirt Lindsay DO PCP - General Internal Medicine 02/02/21 Josué Del Valle MD PhD Medical Oncologist/Group Tester Medical Oncology 08/26/19 Cal Carranza DO [address] [address] Production Engineer Internal Medicine 06/12/23 Halie Khan MD [address] [facility] [place] [address] [place] [address] Station Installer And Repairer Critical Care Med 06/12/23 Wilfred Kinsey MD [address] [address] Consulting Physician Gastroenterology 03/02/24 documented as of this encounter
--- OUTSIDE RECORDS SUMMARY | 2024-11-22 12:47 | XMS_ITS | Referral Summary ---
Author Organization [facility] Address [address] [place] [address] Care Team Providers Care Economic Forecaster Name Role Phone Josué Del Valle MD PhD Unavailable [phone] Kirt Lindsay DO Primary Care Provider [phone] Cal Carranza DO Unavailable [phone] Halie Khan MD Unavailable [phone] Wilfred Kinsey MD Unavailable Encounters Date Type Department Care Team Description 5 Telephone [facility] Bone Marrow Transplant [address] [facility] 6 [place] [address] Josué Del Valle MD PhD 4 11:27 PM [employer] - 5 2:47 PM [employer] Hospital Encounter [address] [phone] Akhil Ashley MD Dipersio, John F., MD PhD Vahid, Cruz Hartman MD PhD Food impaction of esophagus, initial encounter (Primary Dx); Food bolus obstruction of intestine (HCC); Acute myeloblastic leukemia, in remission (HCC) Discharge Disposition: Discharge to home or self care 4 4:10 PM [employer] Anesthesia Event [facility] [place] [phone] Fermin Jiang MD Dubois, Ashley Michelle, CRNA 4 3:55 PM [employer] - 4 4:20 PM [employer] Surgery [facility] [address] [place] [phone] Hany Martinez MD ESOPHAGOGASTRODUODENOSCOPY WITH REMOVAL FOREIGN BODY 4 Orders Only [facility] Bone Marrow Transplant [facility] [address] [phone] Josué Del Valle MD PhD AML s/p Allo SCT in 2008 (Primary Dx) 4 Telephone [facility] Infectious Diseases [address] [place] [phone] Anjana Waller [facility] 4 Telephone [facility] Bone Marrow Transplant [address] [facility] Floor 6 [place] [phone] Josué Del Valle MD PhD 4 Telephone [facility] Bone Marrow Transplant [facility] 6 [place] [phone] Josué Del Valle MD PhD 4 Telephone [facility] Endocrinology Metabolism and Lipid [address] [facility] 13th [place] [address] [place] [phone] Bela Orellana, BECKI Follow-up 4 Orders Only [facility] Infectious Diseases [address] [place] [phone] Page Marsh [address] [facility] Care Services [address] [place] [address] Birgit Waldron [facility] 4 Documentation [facility] Infectious Diseases [address] [phone] Page Marsh opat monitoring note 4 Telephone [facility] Infectious Diseases [address] [place] [phone] [facility] 4 Documentation [facility] Infectious Diseases [address] [place] [phone] Page Marsh opat monitoring note 4 Documentation [facility] Infectious [address] [phone] Page Marsh OPAT Sign-Off 4 Documentation [facility] Infectious Diseases [address] [place] [phone] Page Marsh 4 Documentation [facility] Infectious [address] [phone] Page Marsh 4 Documentation [facility] Infectious Diseases [address] [place] [phone] Page Marsh 4 Documentation [facility] Infectious Diseases [address] [place] [phone] Page Marsh 4 Telephone [facility] Infectious Diseases [address] [place] [phone] Page Marsh 4 Orders Only [facility] Infectious Diseases [address] [place] [phone] Martín Pinzon MD from Last 3 Months [...] morning 2020 Active flash glucose scanning reader (Orderlord Evaristo 2 [place]) [facility] Use to test blood glucose continuously 1 each 1 2022 Active flash glucose sensor (FreeStyle Evaristo 2 Sensor) kitIndications:Type 2 diabetes mellitus with hyperosmolarity without coma, with long-term current use of insulin ([facility]) Change sensor every 14 days 2 kit [...] mg tabletIndications:Acut e myeloblastic leukemia, in remission ([facility]) TAKE ONE TABLET BY MOUTH DAILY AT 9 AM 30 tablet 11 2023 Active tacrolimus 0.5 mg immediate-release capsuleIndications:Acu te myeloblastic leukemia, in remission ([facility]) TAKE ONE CAPSULE BY MOUTH EVERY OTHER [...] myeloid leukemia) in remission ([facility]),Type 2 diabetes mellitus with hyperglycemia, with long-term current use of insulin ([facility]),Cwngy-dvddgm-xdb t disease ([facility]),H/O allogeneic bone marrow transplant ([facility]),Pure hypercholesterolemia TAKE ONE TABLET (40MG) BY MOUTH DAILY AT 5 PM LAST REFILL UNTIL SEEN 30 tablet 11 2023 Active mycophenolate mofetil (CELLCEPT) 500 mg tabletIndications:[place] b-sksdoq-inik disease, unspecified (HCC),Acute myeloblastic leukemia, in remission [...] CAPSULE BY MOUTH FOUR TIMES DAILY @ [id number] M 120 capsule 11 11/18 Discontinued sodium [...] Inpatient Care Coordination Overview Diagnosis AML Floor [address] Treatment Plan Clinical Trial Reason for Admission [...] Post-Discharge Office Visit (H30) CASSANDRA 12/09 w/ TABLE GAMES MANAGER Jame Miscellaneous Notes: Problem Noted Date Diagnosed Date 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 CAD (coronary artery disease) 11/16/2024 Assessment & Plan (11/18/2024 10:42 AM [employer]): S/p PCI to RCA in 2022 -cont plavix, atorvastatin Food bolus obstruction of intestine 11/15/2024 Hypocalcemia 07/25/2024 Assessment & Plan (07/25/2024 12:05 PM CDT): Ca 8.1. Due to hypoalbumin, Ca is wnl with hypoalbuminemia correction. -continue to monitor and treat as indicated History of esophagitis 07/24/2024 Assessment & Plan (07/24/2024 12:18 AM CDT): - Continue protonix. Has a chronic globus sensation and [facility] soft diet at baseline per pt. Appears was seen by speech during last OSH stay Acute on chronic respiratory failure (CMS/HCC) 0 07/23/2024 Assessment & Plan (07/26/2024 11:51 AM CDT): Hx Mycoplasma avium and cavitary lung disease, hx Stenotrophamonas PNA 05/2024, HFpEF, COPD on chronic O2. Presenting for 4d of worsening SOB. Presented to [facility] ED 07/19 for SOB and treated for [...] 06/19/2024 Assessment & Plan (11/17/2024 12:22 PM [employer]): Follows with ID; last seen in clinic [...] now with expectation of submitting this to [facility] lab on ~07/13. Beginning empiric therapy therapy [...] 06/16/2024 Assessment & Plan (11/17/2024 12:22 PM [employer]): RD following Assessment & Plan (07/24/2024 1:02 [...] 02/20/2024 Assessment & Plan (11/18/2024 10:43 AM [employer]): After eating chicken/spaghetti on 11/14 felt pressure/stuck [...] disease) Assessment & Plan (11/17/2024 12:17 PM [employer]): He has Ventolin inhaler, Trelegy inhaler, albuterol inhaler, and Singulair 10 a day. On 3L oxygen at home Biliary sludge 12/20/2021 Overview (12/20/2021): Added automatically from request for surgery [id number] Other osteoporosis without current pathological fracture 11/23/2021 Encounter for removal of biliary stent Overview (10/03/2021): Added automatically from request for surgery [id number] Elevated LFTs 09/08/2021 Assessment & Plan (09/10/2021 [...] (09/07/2021): Added automatically from request for surgery [id number] Assessment & Plan (07/25/2024 12:01 PM CDT): - Recent hx pancreatitis admission without obvious source. Pain was slowly recurring in the last few days. Lipase was WNL at LFTs wnl at OSH and wnl on repeat here. Improving. - Pain control. - Tolerating mechanical soft diet Upper GI bleed 09/07/2021 Overview (09/07/2021): Added automatically from request for surgery [id number] Assessment & Plan (09/10/2021 9:18 AM CDT): [...] (03/30/2021): Added automatically from request for surgery [id number] Assessment & Plan (08/09/2021 10:27 AM CDT): [...] (06/16-06/20) Assessment & Plan (11/26/2019 10:45 AM [employer]): POA. Possibly community-acquired and/or 2/[address] Strep pneumoniae pos sputum cx. See SOB problem. Shortness of breath 11/20/2019 Assessment & Plan (11/27/2019 12:14 PM [employer]): Concern for poss GVHD and/or poss COPD [...] Walking O2 assessment CHF (congestive heart failure) ([facility]) 020 Assessment & Plan (11/16/2024 3:06 AM [employer]): Euvolemic on exam currently; no new SOB - continue metop, jardiance Assessment & Plan (07/26/2024 11:49 AM CDT): TTE 03/2024 with LVEF 50-55%. Pro BNP at OSH >30k. Last adm here 1012. Appears euvolemic. S/p Lasix at OSH and [place] [address] - repeat TTE 07/24: LVEF 30%, moderate [...] 1012 Assessment & Plan (11/28/2019 10:27 AM [employer]): Closely monitor blood sugar to avoid hypoglycemia Assessment & Plan (11/27/2019 1:35 PM [employer]): Closely monitor blood sugar to avoid hypoglycemia Assessment & Plan (11/26/2019 5:32 PM [employer]): Closely monitor blood sugar to avoid hypoglycemia Assessment & Plan (11/25/2019 4:51 PM [employer]): Closely monitor blood sugar to avoid hypoglycemia Assessment & Plan (11/24/2019 4:57 PM [employer]): Closely monitor blood sugar to avoid hypoglycemia Assessment & Plan (11/23/2019 2:01 PM [employer]): Closely monitor blood sugar to avoid hypoglycemia Assessment & Plan (11/24/2019 10:51 AM [employer]): With diastolic dysfunction, new diagnosis. -Continue Lasix. [...] TID Assessment & Plan (11/20/2019 4:17 PM [employer]): Continue gabapentin Tobacco abuse 11/20/2019 Assessment & Plan (06/16/2024 6:44 PM CDT): Encourage cessation Assessment & Plan (11/20/2019 4:18 PM [employer]): Nicotine patch Depressed mood 11/24/2018 Assessment & Plan (11/24/2018 4:56 PM [employer]): With feelings of depressed mood prior to admission. Outpt team with concerns for pt's wellbeing as he was more noncompliant and down over the phone prior to admit. -Consulted [facility] counseling 11/24, will plan to see him on AM of 11/25 at 0900. -Also consulted psychiatry, but felt that counseling service was appropriate first step and would only see him if they recommended pharm therapy. DVT (deep venous thrombosis) ([facility]) 9 Assessment & Plan (11/18/2024 10:42 AM [employer]): DVT lower ext 2012, DVT IJ 2017, [...] Xeralto Assessment & Plan (11/20/2019 3:57 PM [employer]): Continue xarelto Assessment & Plan (11/23/2018 11:32 AM [employer]): Cont Xarelto. Sinusitis 11/22/2018 Assessment & Plan (11/24/2018 4:48 PM [employer]): Chronic issue over last 2 months. -With [...] shows no PE-->no pneumonia. COPD with exacerbation ([facility]) 11/22/2018 Assessment & Plan (07/24/2024 1:00 PM [...] exertion Assessment & Plan (11/20/2019 4:16 PM [employer]): Continue inhalers Assessment & Plan (11/23/2018 11:29 AM [employer]): Continues to smoke >1 ppd. -Cont steroids at current dose. -Cont Advair diskus BID, cont albuterol inh QID. -Encourage smoking cessation. Cont nicotine patch. Cough 10/17/2018 Pure hypercholesterolemia 08/04/2018 Assessment & Plan (02/12/2022 6:02 AM CDT): - continue home dose atorvastatin 40 mg PO daily Assessment & Plan (01/15/2020 3:22 PM [employer]): -LDL at goal -will continue atorvastatin 40 mg daily Assessment & Plan (11/28/2019 10:27 AM [employer]): On atorvastatin 40 mg daily Assessment & Plan (11/27/2019 1:35 PM [employer]): On atorvastatin 40 mg daily Assessment & Plan (11/26/2019 5:32 PM [employer]): On atorvastatin 40 mg daily Assessment & Plan (11/25/2019 4:50 PM [employer]): On atorvastatin 40 mg daily Assessment & Plan (11/24/2019 4:57 PM [employer]): On atorvastatin 40 mg daily Assessment & Plan (11/23/2019 2:02 PM [employer]): On atorvastatin 40 mg daily Assessment & Plan (11/20/2019 4:18 PM [employer]): Continue statin Assessment & Plan (08/07/2019 1:35 [...] level Assessment & Plan (01/15/2020 3:22 PM [employer]): -vitamin D levels still low, unclear compliance -will continue current regimen Assessment & Plan (11/28/2019 10:29 AM [employer]): Last vitamin-D level low at 16. Continue vitamin D2 96330 units weekly and vitamin D3 2000 units daily Assessment & Plan (11/27/2019 1:35 PM [employer]): Last vitamin-D level low at 16. Continue vitamin D2 58805 units weekly and vitamin D3 2000 units daily Assessment & Plan (11/26/2019 5:32 PM [employer]): Last vitamin-D level low at 16. Continue vitamin D2 09661 units weekly and vitamin D3 2000 units daily Assessment & Plan (11/25/2019 4:51 PM [employer]): Last vitamin-D level low at 16. Continue vitamin D2 70088 units weekly and vitamin D3 2000 units daily Assessment & Plan (11/24/2019 4:57 PM [employer]): Last vitamin-D level low at 16. Continue vitamin D2 74792 units weekly and vitamin D3 2000 units daily Assessment & Plan (11/23/2019 2:02 PM [employer]): Last vitamin-D level low at 16. Continue vitamin D2 26909 units weekly and vitamin D3 2000 units [...] 200805/06/2018 Assessment & Plan (11/18/2024 10:41 AM [employer]): AML. S/p 7+3 and hidac consolidation x3, decitabine maintenance [place] [address]40 protocol. Had relapse s/p AMD/MEC. 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 -Last seen by Dr. Del Valle 06/12/23, in remission - acyclovir 400 t.i.d and antifungal ppx with voriconazole vs cresemba. Plan med rec w Licensed Psychologist Director today Assessment & Plan (06/17/2024 3:28 PM CDT): Follows Dr. Bauman, last seen in clinic on 06/09/2023 -AML diagnosed in 2008 s/p 7+3 and HiDAC consolidation x3 followed by Decitabine maintenance on the CALGB 67189 protocol. -Followed by Relapsed disease, status post [...] followed by Decitabine maintenance on the CALGB 18210 protocol. 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 voriconazole 200 b.i.d Assessment & Plan (09/10/2021 9:20 AM CDT): -S/p Busulfan and Cytoxan on the [facility] allogeneic study with his sister, 08/27 match; with day 0 on 11/09/2009??after induction with 7+3 and HiDAC consolidation x3.??Followed by??Decitabine maintenance on the CALGB 08449 protocol??and relapsed disease, status post AMD/MEC. -??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Most recent BMBx in our records is from 12/12/2017 with neg path and flow -OI prophylaxis, acyclovir Assessment & Plan (08/17/2021 3:45 PM CDT): S/p Busulfan and Cytoxan on the [facility] allogeneic study with his sister, 08/27 match; with day 0 on 11/09/2009 after induction with 7+3 and HiDAC consolidation x3. Followed by Decitabine maintenance on the CALGB 97097 protocol and relapsed disease, status post AMD/MEC. 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 -??Relapsed disease,??status post an allogeneic transplant with busulfan and Cytoxan on the [facility] allogeneic study with his sister, 08/27 match; with day 0 on 11/09/2009.?? - Currently in remission. Follows with Dr. Del Valle - On tacro, cellcept - OI ppx: Cont acyclovir. Added vori and bactrim (pt stated he was no longer taking at home). Assessment & Plan (11/23/2018 11:24 AM [employer]): -s/p sibling allo SCT on 11/09/09, now in CR with no e/o recurrence. 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 -Cont OI ppx with Bactrim, acyclovir. Type 2 diabetes mellitus 05/06/2018 Assessment & Plan (11/18/2024 10:43 AM [employer]): On lantus/humalog at home (he reports taking [...] steroids Assessment & Plan (01/15/2020 3:24 PM [employer]): -poorly controlled, exacerbated by prednisone use -Hgb [...] goal Assessment & Plan (11/28/2019 10:29 AM [employer]): Patient has uncontrolled type 2 diabetes with [...] education. Assessment & Plan (11/27/2019 1:35 PM [employer]): Patient has uncontrolled type 2 diabetes with [...] education. Assessment & Plan (11/26/2019 5:32 PM [employer]): Patient has uncontrolled type 2 diabetes with [...] here. Assessment & Plan (11/25/2019 4:50 PM [employer]): Patient has uncontrolled type 2 diabetes with [...] here. Assessment & Plan (11/24/2019 4:57 PM [employer]): Patient has uncontrolled type 2 diabetes with [...] here. Assessment & Plan (11/23/2019 2:01 PM [employer]): Patient has uncontrolled type 2 diabetes with [...] here. Assessment & Plan (11/28/2019 9:33 AM [employer]): On basaglar 30 units AM and novolog [...] goal Assessment & Plan (11/24/2018 4:59 PM [employer]): -Poorly controlled, recently stopped checking glucose as [...] needles and sent e-script to [facility] in [place] on 11/24. Pt has script for glucose [...] takes acyclovir and voriconazole for medical ppx Gkkgp-icwoep-gqvn disease 07/08/2012 Assessment & Plan (06/18/2024 12:56 [...] daily Assessment & Plan (11/28/2019 10:27 AM [employer]): Prednisone decreased to 20 mg daily Assessment & Plan (11/27/2019 1:32 PM [employer]): Prednisone decreased to 20 mg daily Assessment & Plan (11/26/2019 5:31 PM [employer]): Plan to taper prednisone to 20 mg daily Assessment & Plan (11/25/2019 4:49 PM [employer]): He is on prednisone 20 mg BID Assessment & Plan (11/24/2019 4:54 PM [employer]): He is on prednisone 20 mg BID Assessment & Plan (11/23/2019 2:01 PM [employer]): Starting on prednisone 20 twice daily today Assessment & Plan (11/27/2019 12:13 PM [employer]): Continue cellcept 1 g BID and tacrolimus??0.5 [...] 3x/weekly Assessment & Plan (11/24/2018 11:50 AM [employer]): cGVHD of eyes, mouth, 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 -Cont pred 10 mg BID, MMF 1g BID, tacrolimus 0.5 mg QOD. -F/u tac trough (due 18 AM). Osteopenia 11/27/2011 Assessment & Plan (01/15/2020 3:23 PM [employer]): -DEXA scan done 07/2019 revealed stable BMD -will continue vitamin D supplementation and dietary calcium Assessment & Plan (11/20/2019 3:55 PM [employer]): Continue home vitamin D and dietary calcium [...] states tried to quit; smoking 5 cigs/wk [facility] [employer] Answer Date Recorded In the past 12 months has [employer], gas, oil, or water [employer] threatened to shut off services in your [...] often do you attend chur ch or uatsdin services? Never 11/16/2024 Do you belong to [...] any time in the past 12 m [facility], were you homeless or living in a halfway (including now)? No 11/16/2024 Personal Safety Answer Date Recorded Have you ever been in or are you currently in a harmful physical or emotional relationship or is someone making you feel afraid or unsafe? Denies 11/16/2024 Sex and Gender Information Value Date Recorded Sex Assigned at Not on file Legal Sex Male 10:48 AM [employer] Gender Identity Not on file Sexual Orientation Not on file Last Filed Vital Signs Vital Sign Reading Time Taken Comments Blood Pressure 114/67 11/18/2024 2:12 PM [employer] Pulse 66 11/18/2024 2:12 PM [employer] Temperature 36.3 ??C (97.3 ??F) 11/18/2024 2:12 PM CS T Respiratory Rate 18 11/18/2024 2:12 PM [employer] Oxygen Saturation 100% 11/18/2024 2:12 PM [employer] Inhaled Oxygen Concentration - - Weight 57.8 kg (127 lb 8 oz) 11/17/2024 9:40 PM [employer] Height 180.3 cm (5' 11 ) 11/16/2024 2:29 AM [employer] Body Mass Index 17.78 11/16/2024 2:29 AM [employer] Plan of Treatment Not on file Medical Devices Implanted Type Area Financial Planning Assistant Device Identifier Shelf Expiration Date Model / Serial / Lot Titanium Maynor Bone Left: Leg Description:Titanium maynor in l leg from 2001 [employer]SW [employer] [id number].170 Acrysof Iq Natural Stableforce Acrysert 6mm 13mm 1 Piece Foldable - [id number] - [id number] Implanted:Qty: 1 on 05/12/2021 by Ravi Hughes MD at [facility] Lens Right: Lens [employer] [id number] 09/13/2025 SN60WF.17 0 / [id number] / [employer] [id number].170 Acrysof Iq Natural Stableforce Acrysert 6mm 13mm 1 Piece Foldable - [id number] - [id number] Implanted:Qty: 1 on 08/01/2021 by Ravi Hughes MD at [facility] Lens Left: Eye [employer] [id number] 10/05/2025 SN60WF.17 0 / [id number] / 0 Explanted Type Area Financial Planning Assistant Device Identifier Shelf Expiration Date Model / Serial / Lot [employer] Jasmin [id number] Advanix 7fr 5cm Temporary Rapid [employer] [place] Stent - [id number] Implanted:Qty: 1 on 09/07/2021 by Tay Charlton MD at [facility] Explanted:Qty: 1 on 11/14/2021 by Tay Charlton MD at [facility] Stent N/A: Bile Duct [employer] Jasmin 01/11/2023 [id number] / / [id number] [employer] [id number] [address]azar Flexi-Stent 5fr 9cm Small Pigtail Flexible .035in Stent - [id number] Implanted:Qty: 1 on 09/07/2021 by Tay Charlton MD at [facility] Explanted:Qty: 1 on 11/14/2021 by Tay Charlton MD at [facility] Stent N/A: Pancreas [employer] 06/17/2026 [id number] / / [id number] Description:PD stent not pre sent during this case Procedures Procedure Name Priority Date/Time Associated Diagnosis Comments POCT GLUCOSE DEVICE Routine 11/18/2024 11:20 AM [employer] POCT GLUCOSE DEVICE Routine 11/18/2024 7:30 AM [employer] POCT GLUCOSE DEVICE Routine 11/18/2024 4:25 AM [employer] EGFR Routine 11/18/2024 2:38 AM [employer] MANUAL DIFFERENTIAL Routine 11/18/2024 2:38 AM [employer] CBC WITHOUT DIFFERENTIAL Routine 2:38 AM [employer] BASIC METABOLIC PANEL Routine 11/18/2024 2:38 AM [employer] PHOSPHORUS Routine 11/18/2024 2:38 AM [employer] MAGNESIUM Routine 11/18/2024 2:38 AM [employer] BMT CBC Routine 11/18/2024 2:38 AM [employer] POCT GLUCOSE DEVICE Routine 11/18/2024 12:47 AM [employer] POCT GLUCOSE DEVICE Routine 11/17/2024 8:11 PM [employer] POCT GLUCOSE DEVICE Routine 11/17/2024 5:32 PM [employer] POCT GLUCOSE DEVICE Routine 11/17/2024 12:03 PM [employer] POCT GLUCOSE DEVICE Routine 11/17/2024 11:14 AM [employer] POCT GLUCOSE DEVICE Routine 11/17/2024 7:19 AM [employer] POCT GLUCOSE DEVICE Routine 11/17/2024 4:32 AM [employer] POCT GLUCOSE DEVICE Routine 11/17/2024 12:33 AM [employer] HEMOGLOBIN A1C Routine 11/17/2024 12:31 AM [employer] URIC ACID Routine 11/17/2024 12:31 AM [employer] EGFR Routine 11/17/2024 12:31 AM [employer] LACTATE DEHYDROGENASE Routine 11/17/2024 12:31 AM [employer] MANUAL DIFFERENTIAL Routine 11/17/2024 12:31 AM [employer] CBC WITHOUT DIFFERENTIAL Routine 12:31 AM [employer] BASIC METABOLIC PANEL Routine 11/17/2024 12:31 AM [employer] PHOSPHORUS Routine 11/17/2024 12:31 AM [employer] MAGNESIUM Routine 11/17/2024 12:31 AM [employer] BMT CBC Routine 11/17/2024 12:31 AM [employer] POCT GLUCOSE DEVICE Routine 11/16/2024 8:43 PM [employer] POCT GLUCOSE DEVICE Routine 11/16/2024 5:06 PM [employer] SURGICAL PATHOLOGY Routine 11/16/2024 4:53 PM [employer] Food impaction of esophagus, initial encounter ENDO ADD ON ESOPHAGOGASTRODUODENOSCOPY BIOPSY 11/16/2024 4:15 PM [employer] Food impaction of esophagus, initial encounter ESOPHAGOGASTRODUODENOSCOPY WITH REMOVAL FOREIGN BODY 11/16/2024 4:15 PM [employer] Food impaction of esophagus, initial encounter EGD 11/16/2024 4:05 PM [employer] POCT GLUCOSE DEVICE Routine 11/16/2024 3:54 PM [employer] POCT GLUCOSE DEVICE Routine 11/16/2024 11:37 [address] [employer] CT CHEST ABDOMEN W CONTRAST ED Urgent/IP Urgent 11/16/2024 10:32 AM [employer] POCT GLUCOSE DEVICE Routine 11/16/2024 7:57 AM [employer] POCT GLUCOSE DEVICE Routine 11/16/2024 3:55 AM [employer] EGFR Routine 11/16/2024 3:38 AM [employer] URIC ACID STAT 11/16/2024 3:38 AM [employer] LACTATE DEHYDROGENASE STAT 11/16/2024 3:38 AM [employer] PHOSPHORUS STAT 11/16/2024 3:38 AM [employer] MAGNESIUM STAT 11/16/2024 3:38 AM [employer] APTT Routine 11/16/2024 3:38 AM [employer] COMPREHENSIVE METABOLIC PANEL Routine 3:38 AM [employer] FIBRINOGEN STAT 11/16/2024 3:38 AM [employer] TYPE AND SCREEN STAT 11/16/2024 3:38 AM [employer] EGFR STAT 11/16/2024 12:13 AM [employer] DIFFERENTIAL AUTO STAT 11/16/2024 12:13 AM [employer] PROTIME-INR STAT 11/16/2024 12:13 AM [employer] BASIC METABOLIC PANEL STAT 11/16/2024 12:13 AM [employer] CBC WITH AUTO DIFFERENTIAL STAT 11/16 12:13 AM [employer] POCT GLUCOSE DEVICE Routine 11/16/2024 12:12 AM [employer] LIPID PANEL Add-On 07/14/2024 6:22 PM CDT ALBUMIN CREATININE RATIO, URINE STAT 02/28/2022 8:57 AM CDT Type 2 diabetes mellitus with hyperosmolarity without coma, with long-term current use of insulin (CMS/HCC) (HCC) Vitamin D deficiency Yeayy-dbgtcm-vnlw disease (HCC) Other osteoporosis without current pathological fracture Screening for thyroid disorder HEPATITIS PANEL, ACUTE STAT 4:28 AM CDT PSA SCREEN Routine Gen Lab 02/04/2017 8:36 AM CDT from Last 3 Months or Most Recently Relevant to Health Maintenance Results * (ABNORMAL) POCT glucose (11/18/2024 11:20 AM [employer]) Glucose, POC 201(H) 70 - 199 mg/dL Comment:Glu2: RN/ Notified Glucose comment 1 Glu2: BECKI/ Notified [facility] Blood 11/18/2024 11:2 0 AM [employer] 11/18/2024 11:20 AM [employer] us Cruz Redding MD PhD LAB POCT ORDERABLES - DEVICE Final Result Performing Organization Address [facility] de Phone Number [facility] [place] [address] * POCT glucose (11/18/2024 7:30 AM [employer]) Glucose, POC 148 70 - 199 mg/dL Blood 11/18/2024 7:30 AM [employer] 11/18/2024 7:30 AM [employer] us Cruz Redding MD PhD LAB POCT ORDERABLES - DEVICE Final Result Performing Organization Address [facility] de Phone Number [facility] [place] [address] * POCT glucose (11/18/2024 4:25 AM [employer]) Glucose, POC 146 70 - 199 mg/dL Blood 11/18/2024 4:25 AM [employer] 11/18/2024 4:25 AM [employer] us Cruz Redding MD PhD LAB POCT ORDERABLES - DEVICE Final Result Performing Organization Address [facility] Phone Number [facility] [place] [address] * eGFR (11/18/2024 2:38 AM [employer]) eGFR >90 >=60 mL/min/1. 73 m2 Comment: [...] last reviewed 2021. Blood 11/18/2024 2:38 AM [employer] 11/18/2024 3:24 AM [employer] us Josué Del Valle MD PhD LAB BLOOD ORDERABLES Fin al Result [facility] [place] [address] * (ABNORMAL) Manual Differential (11/18/2024 2:38 AM [employer]) Differential Manual Cells Counted 116 [facility] Neutrophil abs 3.4 1.5 - 6.5 K/cumm [facility] Imm gran abs 0.0 0.0 - 0.1 K/cumm [facility] Lymphocyte abs 2.2 0.8 - 3.3 K/cumm [facility] Monocyte abs 0.3 0.2 - 0.8 K/cumm [facility] Eosinophil abs 0.5 0.0 - 0.5 K/cumm [facility] Basophil abs 0.1 0.0 - 0.1 K/cumm [facility] Neutrophil pct 52.6 % [facility] Comment: Interpretive Data Percent cell count reference ranges are not reported, since discordance with absolute values may lead to misinterpretation of CBC data. Current Interpretive Data was last revised on 2018. Lymphocyte pct 33.6 % [facility] Comment: Interpretive Data Percent cell count reference ranges are not reported, since discordance with absolute values may lead to misinterpretation of CBC data. Current Interpretive Data was last revised on 2018. Monocyte pct 4.3 % [facility] Comment: Interpretive Data Percent cell count reference ranges are not reported, since discordance with absolute values may lead to misinterpretation of CBC data. Current Interpretive Data was last revised on 2018. Eosinophil pct 7.8 % [facility] Comment: Interpretive Data Percent cell count reference ranges are not reported, since discordance with absolute values may lead to misinterpretation of CBC data. Current Interpretive Data was last revised on 2018. Basophil pct 1.7 % [facility] Comment: Interpretive Data Percent cell count reference ranges are not reported, since discordance with absolute values may lead to misinterpretation of CBC data. Current Interpretive Data was last revised on 2018. RBC morphology Present(A) [facility] Anisocytosis Slight(A) [facility] Macrocytes 3-7/HPF(A) [facility] Platelet estimate Adequate [facility] Blood 11/18/2024 2:38 AM [employer] 11/18/2024 3:24 AM [employer] us Josué Del Valle MD PhD LAB BLOOD ORDERABLES Fin al Result [facility] [place] [address] * (ABNORMAL) CBC without differential (11/18/2024 2:38 AM [employer]) WBC 6.4 3.8 - 9.9 K/cumm Hgb 9.9(L) 13.0 - 17.5 g/dL [facility] Hct 30.0(L) 38.9 - 50.3 % [facility] Plt 254 150 - 400 K/cumm [facility] MPV 10.5 9.1 - 12.3 fL [facility] RBC 2.83(L) 4.30 - 5.80 M/cumm [facility] MCV 106.0(H) 81.3 - 96.4 fL [facility] MCH 35.0(H) 27.1 - 33.3 pg [facility] MCHC 33.0 32.3 - 35.7 g/dL [facility] RDW CV 14.8 11.1 - 14.9 % [facility] RDW SD 58.4(H) 35.7 - 48.1 fL [facility] NRBC abs 0.00 0.00 - 0.01 K/cumm [facility] Blood 11/18/2024 2:38 AM [employer] 11/18/2024 3:24 AM [employer] Josué Del Valle MD PhD LAB BLOOD ORDERABLES Fin al Result Performing Organization Address City/[facility] Co de Phone Number [facility] [place] [address] * Phosphorus (11/18/2024 2:38 AM [employer]) Phosphorus, pl 3.2 2.3 - 4.5 mg/dL Blood 11/18/2024 2:38 AM [employer] 11/18/2024 3:24 AM [employer] Josué Del Valle MD PhD LAB BLOOD ORDERABLES Fin al Result Performing Organization Address [facility] de Phone Number [facility] [place] [address] * Magnesium (11/18/2024 2:38 AM [employer]) Magnesium 1.9 1.4 - 2.5 mg/dL Blood 11/18/2024 2:38 AM [employer] 11/18/2024 3:24 AM [employer] Josué Del Valle MD PhD LAB BLOOD ORDERABLES Fin al Result Performing Organization Address City/[facility] Co de Phone Number [facility] [place] [address] * (ABNORMAL) Basic metabolic panel (11/18/2024 2:38 AM [employer]) Sodium 143 135 - 145 mmol/L Potassium, pl 4.1 3.3 - 4.9 mmol/L [facility] Chloride 104 97 - 110 mmol/L [facility] CO2 32 22 - 32 mmol/L [facility] Anion gap 7 2 - 15 mmol/L [facility] BUN 20 6 - 25 mg/dL [facility] Creatinine 0.78(L) 0.80 - 1.30 mg/dL [facility] Glucose 117 70 - 199 mg/dL [facility] Comment: Interpretive Data Fasting glucose >/= [...] 2022. Calcium 8.3(L) 8.5 - 10.3 mg/dL [facility] Blood 11/18/2024 2:38 AM [employer] 11/18/2024 3:24 AM [employer] Narrative [facility] - 11/18/2024 3:55 AM [employer] Daily except Saturday and . Morning draw. us Josué Del Valle MD PhD LAB BLOOD ORDERABLES Fin al Result [facility] Department [place] [address] * POCT glucose (11/18/2024 12:47 AM [employer]) Glucose, POC 125 70 - 199 mg/dL Blood 11/18/2024 12:4 7 AM [employer] 11/18/2024 12:47 AM [employer] us Cruz Redding MD PhD LAB POCT ORDERABLES - DEVICE Final Result Performing Organization Address City/[facility] Co de Phone Number [facility] [place] [address] * POCT glucose (11/17/2024 8:11 PM [employer]) Glucose, POC 135 70 - 199 mg/dL Blood 11/17/2024 8:11 PM [employer] 11/17/2024 8:11 PM [employer] us Cruz Redding MD PhD LAB POCT ORDERABLES - DEVICE Final Result Performing Organization Address [facility] Co de Phone Number [facility] [place] [address] * (ABNORMAL) POCT glucose (11/17/2024 5:32 PM [employer]) Glucose, POC 229(H) 70 - 199 mg/dL Blood 11/17/2024 5:32 PM [employer] 11/17/2024 5:32 PM [employer] Cruz Redding MD PhD LAB POCT ORDERABLES - DEVICE Final Result Performing Organization Address [facility] Co de Phone Number [facility] [place] [address] * POCT glucose (11/17/2024 12:03 PM [employer]) Glucose, POC 156 70 - 199 mg/dL Blood 11/17/2024 12:0 3 PM [employer] 11/17/2024 12:03 PM [employer] Cruz Redding MD PhD LAB POCT ORDERABLES - DEVICE Final Result Performing Organization Address City/[facility] Co de Phone Number [facility] [place] [address] * POCT glucose (11/17/2024 11:14 AM [employer]) Glucose, POC 174 70 - 199 mg/dL Blood 11/17/2024 11:1 4 AM [employer] 11/17/2024 11:14 AM [employer] Cruz Redding MD PhD LAB POCT ORDERABLES - DEVICE Final Result Performing Organization Address [facility] de Phone Number [facility] [place] [address] * POCT glucose (11/17/2024 7:19 AM [employer]) Glucose, POC 126 70 - 199 mg/dL Blood 11/17/2024 7:19 AM [employer] 11/17/2024 7:19 AM [employer] Cruz Redding MD PhD LAB POCT ORDERABLES - DEVICE Final Result Performing Organization Address [facility] de Phone Number [facility] [place] [address] * POCT glucose (11/17/2024 4:32 AM [employer]) Glucose, POC 159 70 - 199 mg/dL Blood 11/17/2024 4:32 AM [employer] 11/17/2024 4:32 AM [employer] Cruz Redding MD PhD LAB POCT ORDERABLES - DEVICE Final Result Performing Organization Address [facility] de Phone Number [facility] [place] [address] * POCT glucose (11/17/2024 12:33 AM [employer]) Glucose, POC 178 70 - 199 mg/dL Blood 11/17/2024 12:3 3 AM [employer] 11/17/2024 12:33 AM [employer] us Cruz Redding MD PhD LAB POCT ORDERABLES - DEVICE Final Result Performing Organization Address [facility] Co de Phone Number [facility] [place] [address] * eGFR (11/17/2024 12:31 AM [employer]) eGFR >90 >=60 mL/min/1. 73 m2 Comment: [...] reviewed 2021. Blood 11/17/2024 12:3 1 AM [employer] 11/17/2024 12:53 AM [employer] us Josué Del Valle MD PhD LAB BLOOD ORDERABLES Fin al Result Performing Organization Address City/[facility]/ZIP Co de Phone Number [facility] Department [place] [address] * (ABNORMAL) Manual Differential (11/17/2024 12:31 AM [employer]) Differential Manual Cells Counted 114 [facility] Neutrophil abs 3.4 1.5 - 6.5 K/cumm [facility] Imm gran abs 0.1 0.0 - 0.1 K/cumm [facility] Lymphocyte abs 2.3 0.8 - 3.3 K/cumm [facility] Monocyte abs 0.6 0.2 - 0.8 K/cumm [facility] Eosinophil abs 0.2 0.0 - 0.5 K/cumm [facility] Neutrophil pct 50.9 % [facility] Comment: Interpretive Data Percent cell count reference ranges are not reported, since discordance with absolute values may lead to misinterpretation of CBC data. Current Interpretive Data was last revised on 2018. Lymphocyte pct 35.1 % [facility] Comment: Interpretive Data Percent cell count reference ranges are not reported, since discordance with absolute values may lead to misinterpretation of CBC data. Current Interpretive Data was last revised on 2018. Monocyte pct 9.6 % [facility] Comment: Interpretive Data Percent cell count reference ranges are not reported, since discordance with absolute values may lead to misinterpretation of CBC data. Current Interpretive Data was last revised on 2018. Eosinophil pct 3.5 % [facility] Comment: Interpretive Data Percent cell count reference ranges are not reported, since discordance with absolute values may lead to misinterpretation of CBC data. Current Interpretive Data was last revised on 2018. Promyelocyte pct 0.9 % [facility] RBC morphology Present(A) [facility] Anisocytosis Marked(A) [facility] Macrocytes > 15/HPF(A) [facility] Platelet estimate Adequate [facility] Blood 11/17/2024 12:3 1 AM [employer] 11/17/2024 12:49 AM [employer] us Josué Del Valle MD PhD LAB BLOOD ORDERABLES Arun tamiko Result - Final [facility] [place] [address] * (ABNORMAL) CBC without differential (11/17/2024 12:31 AM [employer]) WBC 6.6 3.8 - 9.9 K/cumm Hgb 11.6(L) 13.0 - 17.5 g/dL [facility] Hct 35.3(L) 38.9 - 50.3 % [facility] Plt 307 150 - 400 K/cumm [facility] MPV 10.5 9.1 - 12.3 fL [facility] RBC 3.38(L) 4.30 - 5.80 M/cumm [facility] MCV 104.4(H) 81.3 - 96.4 fL [facility] MCH 34.3(H) 27.1 - 33.3 pg [facility] MCHC 32.9 32.3 - 35.7 g/dL [facility] RDW CV 14.7 11.1 - 14.9 % [facility] RDW SD 56.7(H) 35.7 - 48.1 fL [facility] NRBC abs 0.00 0.00 - 0.01 K/cumm [facility] Blood 11/17/2024 12:3 1 AM [employer] 11/17/2024 12:49 AM [employer] us Josué Del Valle MD PhD LAB BLOOD ORDERABLES Fin al Result Performing Organization Address City/[facility]/ZIP Co de Phone Number [facility] [place] [address] * Uric acid (11/17/2024 12:31 AM [employer]) Pathologist [facility] Uric acid 6.0 3.0 - 8.0 mg/dL Blood 11/17/2024 12:3 1 AM [employer] 11/17/2024 12:46 AM [employer] us Cruz Redding MD PhD LAB BLOOD ORDERABLE S Final Result Performing Organization Address City/[facility]/ZIP Co de Phone Number [facility] [place] [address] * Phosphorus (11/17/2024 12:31 AM [employer]) Pathologist [facility] Phosphorus, pl 2.7 2.3 - 4.5 mg/dL Blood 11/17/2024 12:3 1 AM [employer] 11/17/2024 12:46 AM [employer] Josué Del Valle MD PhD LAB BLOOD ORDERABLES Fin al Result Performing Organization Address City/[facility] Co de Phone Number [facility] [place] [address] * Magnesium (11/17/2024 12:31 AM [employer]) [facility] Magnesium 1.9 1.4 - 2.5 mg/dL Blood 11/17/2024 12:3 1 AM [employer] 11/17/2024 12:46 AM [employer] Josué Del Valle MD PhD LAB BLOOD ORDERABLES Fin al Result Performing Organization Address [facility] de Phone Number [facility] [place] [address] * Lactate dehydrogenase (LD) (11/17/2024 12:31 AM [employer]) [facility] Lactate dehydrogenase (LDH) 220 100 - 250 Units/L Blood 11/17/2024 12:3 1 AM [employer] 11/17/2024 12:46 AM [employer] Cruz Redding MD PhD LAB BLOOD ORDERABLE S Final Result Performing Organization Address [facility] Co de Phone Number [facility] [place] [address] * (ABNORMAL) Hemoglobin A1c (11/17/2024 12:31 AM [employer]) [facility] Hgb A1C 6.0(H) 4.0 - 5.6 % Estimated Average Glucose 126 mg/dL [facility] Comment: The ADA recommends reporting an estimated Average Glucose (eAG) with all Hemoglobin A1c results using the equation derived from a study of 507 normal and diabetic adults. ??Minority populations were underrepresented and children were not included. ?? (Diabetes Care 2020; 43(S1): S66-S76). ??The eAG is not equivalent to a fasting glucose. Blood 11/17/2024 12:3 1 AM [employer] 11/17/2024 12:52 AM [employer] Narrative [facility] - 11/17/2024 5:28 PM [employer] Reflex us Cruz Redding MD PhD LAB BLOOD ORDERABLE S Final Result [facility] [place] [address] * (ABNORMAL) Basic metabolic panel (11/17/2024 12:31 AM [employer]) Sodium 142 135 - 145 mmol/L Potassium, pl 3.9 3.3 - 4.9 mmol/L [facility] Chloride 101 97 - 110 mmol/L [facility] CO2 33(H) 22 - 32 mmol/L [facility] Anion gap 8 2 - 15 mmol/L [facility] BUN 20 6 - 25 mg/dL [facility] Creatinine 0.66(L) 0.80 - 1.30 mg/dL [facility] Glucose 166 70 - 199 mg/dL [facility] Comment: Interpretive Data Fasting glucose >/= [...] 2022. Calcium 9.4 8.5 - 10.3 mg/dL [facility] Blood 11/17/2024 12:3 1 AM [employer] 11/17/2024 12:46 AM [employer] N[facility]ative [facility] - 11/17/2024 1:32 AM [employer] Daily except Saturday and . Morning draw. us Josué Del Valle MD PhD LAB BLOOD ORDERABLES Fin al Result Performing Organization Address [facility] Co de Phone Number [facility] [place] [address] * (ABNORMAL) POCT glucose (11/16/2024 8:43 PM [employer]) Glucose, POC 231(H) 70 - 199 mg/dL Blood 11/16/2024 8:43 PM [employer] 11/16/2024 8:43 PM [employer] Cruz Redding MD PhD LAB POCT ORDERABLES - DEVICE Final Result Performing Organization Address [facility] de Phone Number [facility] Department [place] [address] * POCT glucose (11/16/2024 5:06 PM [employer]) Glucose, POC 120 70 - 199 mg/dL Blood 11/16/2024 5:06 PM [employer] 11/16/2024 5:06 PM [employer] Cruz Redding MD PhD LAB POCT ORDERABLES - DEVICE Final Result Performing Organization Address [facility] de Phone Number [facility] [place] [address] * Surgical pathology (11/16/2024 4:53 PM [employer]) Tissue (Esophageal biopsy) 11/16/2024 4:53 PM [employer] Narrative PATHOLOGY [facility] - 11/17/2024 3:51 PM [employer] EPIC results best viewed via link to PDF [facility] Ramonita Jaramillo Laboratory of Surgical Pathology [facility], [place] [address] Note to Patients: This report may contain [...] ??1965 (Age: 59) Address: ??[address] [place], [place] ??[address] Hospital #: ??[id number] Taken:11/16/2024 Received:11/16/2024 Reported: 11/17/2024 Patient Type: [facility] Inpatient ?? Service: Gastroenterology Location: [facility] ??[id number] Physician(s): ??MD Kirt Romero DO Kellie Hughes, [...] Surgical Pathology and Flow Cytometry Departments at as part of an ongoing type disk quality control supervisor program and in compliance with federally mandated [...] Surgical Pathology and Flow Cytometry Departments of . ??It has not been cleared or approved by the U. S. Food and Drug Administration. IMAGES AND SCANNED DOCUMENTS, IF INCLUDED, ONLY VIEWABLE IN PDF VERSION OF REPORT us Hany Martinez MD LAB PATHOLOGY ORDERABLES Final Result PATHOLOGY [facility] [address] [place], [place] [phone] * EGD (11/16/2024 4:05 PM [employer]) Anatomical Region Laterality Modality Other Narrative Procedure Note Hany Martinez MD - 11/16/2024 4:05 PM [facility] Patient Name: Bri Jones Procedure Date: 11/16/2024 4:05 PM Date of : 1965 Admit Type: Outpatient Age: 59 Gender: Male Attending MD: Hany Martinez M.D. Room: [facility] ENDOSCOPY Note Status: Finalized Procedure: [...] ult * POCT glucose (11/16/2024 3:54 PM [employer]) Glucose, POC 118 70 - 199 mg/dL Blood 11/16/2024 3:54 PM [employer] 11/16/2024 3:54 PM [employer] us Cruz Redding MD PhD LAB POCT ORDERABLES - DEVICE Final Result [facility] Department [place] [address] * POCT glucose (11/16/2024 11:37 AM [employer]) Glucose, POC 129 70 - 199 mg/dL Blood 11/16/2024 11:3 7 AM [employer] 11/16/2024 11:37 AM [employer] us Cruz Redding MD PhD LAB POCT ORDERABLES - DEVICE Final Result [facility] [place] [address] * CT Chest Abdomen W Contrast (11/16/2024 10:32 AM [employer]) Anatomical Region Laterality Modality Body N/A Computed Tomogra phy 11/16/2024 11:0 1 AM [employer] Impressions 11/16/2024 11:01 AM [employer] 1. ??Two areas of segmental thickening of [...] Dominique Richmond M.D. 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 ??Patient has erosive esophagitis presenting with [...] post stem cell transplant in 2008 with [id number] disease. Patient has erosive esophagitis presenting with [...] t * POCT glucose (11/16/2024 7:57 AM [employer]) Glucose, POC 118 70 - 199 mg/dL Blood 11/16/2024 7:57 AM [employer] 11/16/2024 7:57 AM [employer] Cruz Redding MD PhD LAB POCT ORDERABLES - DEVICE Final Result Performing Organization Address [facility] de Phone Number [facility] [place] [address] * POCT glucose (11/16/2024 3:55 AM [employer]) [facility] Signature Glucose, POC 123 70 - 199 mg/dL Blood 11/16/2024 3:55 AM [employer] 11/16/2024 3:55 AM [employer] Josué Del Valle MD PhD LAB POCT ORDERABLES - DE VICE Final Result Performing Organization Address [facility] de Phone Number [facility] [place] [address] * eGFR (11/16/2024 3:38 AM [employer]) eGFR >90 >=60 mL/min/1. 73 m2 Comment: [...] last reviewed 2021. Blood 11/16/2024 3:38 AM [employer] 11/16/2024 4:26 AM [employer] us Josué Del Valle MD PhD LAB BLOOD ORDERABLES Fin al Result Performing Organization Address [facility] de Phone Number [facility] [place] [address] * aPTT (11/16/2024 3:38 AM [employer]) aPTT 36 28 - 38 sec Comment: Interpretive Data Heparin therapeutic range: 66.0 - 100.0 seconds. Range based on correlation with therapeutic heparin activity range of 0.3 - 0.7 Units/mL. Current interpretive data was last revised on 2023. Blood 11/16/2024 3:38 AM [employer] 11/16/2024 4:24 AM [employer] Josué De lValle MD PhD LAB BLOOD ORDERABLES Fin al Result Performing Organization Address City/[facility] Co de Phone Number [facility] [place] [address] * (ABNORMAL) Fibrinogen (11/16/2024 3:38 AM [employer]) Pathologist [facility] Fibrinogen 771(H) 170 - 400 mg/dL Blood 11/16/2024 3:38 AM [employer] 11/16/2024 4:24 AM [employer] Josué Del Valle MD PhD LAB BLOOD ORDERABLES Fin al Result Performing Organization Address City/[facility] Co de Phone Number [facility] [place] [address] * Type and screen (11/16/2024 3:38 AM [employer]) Pathologist [facility] Ursula, indirect Negative ABO Rh A Positive [facility] Blood 11/16/2024 3:38 AM [employer] 11/16/2024 4:18 AM [employer] Narrative [facility] - 11/16/2024 5:10 AM [employer] Has the patient had Daratumumab or Isatuximab in the past 6 months?->Unknown Josué Del Valle MD PhD LAB BLOOD BANK TEST ORDE RABLES Final Result Performing Organization Address [facility] de Phone Number [facility] [place] [address] * Uric acid (11/16/2024 3:38 AM [employer]) [facility] Uric acid 5.8 3.0 - 8.0 mg/dL Blood 11/16/2024 3:38 AM [employer] 11/16/2024 4:26 AM [employer] Josué Del Valle MD PhD LAB BLOOD ORDERABLES Fin al Result Performing Organization Address [facility] Co de Phone Number [facility] [place] [address] * Phosphorus (11/16/2024 3:38 AM [employer]) [facility] Phosphorus, pl 2.9 2.3 - 4.5 mg/dL Blood 11/16/2024 3:38 AM [employer] 11/16/2024 4:26 AM [employer] Josué Del Valle MD PhD LAB BLOOD ORDERABLES Fin al Result Performing Organization Address City/[facility] de Phone Number [facility] [place] [address] * Magnesium (11/16/2024 3:38 AM [employer]) [facility] Magnesium 1.9 1.4 - 2.5 mg/dL Blood 11/16/2024 3:38 AM [employer] 11/16/2024 4:26 AM [employer] Josué Del Valle MD PhD LAB BLOOD ORDERABLES Fin al Result Performing Organization Address [facility] de Phone Number [facility] [place] [address] * Lactate dehydrogenase (LD) (11/16/2024 3:38 AM [employer]) [facility] Lactate dehydrogenase (LDH) 205 100 - 250 Units/L Blood 11/16/2024 3:38 AM [employer] 11/16/2024 4:26 AM [employer] Josué Del Valle MD PhD LAB BLOOD ORDERABLES Fin al Result Performing Organization Address City/[facility] de Phone Number [facility] [place] [address] * (ABNORMAL) Comprehensive metabolic panel (11/16/2024 3:38 AM [employer]) [facility] Sodium 142 135 - 145 mmol/L Potassium, pl 4.1 3.3 - 4.9 mmol/L [facility] Chloride 100 97 - 110 mmol/L [facility] CO2 32 22 - 32 mmol/L [facility] Anion gap 10 2 - 15 mmol/L [facility] BUN 20 6 - 25 mg/dL [facility] Creatinine 0.67(L) 0.80 - 1.30 mg/dL [facility] Glucose 129 70 - 199 mg/dL [facility] Comment: Interpretive Data Fasting glucose >/= [...] 2022. Calcium 9.9 8.5 - 10.3 mg/dL [facility] Bilirubin, total 0.4 0.1 - 1.2 mg/dL [facility] Protein, pl 7.7 6.5 - 8.5 g/dL [facility] Albumin 4.0 3.5 - 5.0 g/dL [facility] Alk phos 180(H) 40 - 130 Units/L [facility] ALT 54 7 - 55 Units/L [facility] AST 30 10 - 50 Units/L [facility] Blood 11/16/2024 3:38 AM [employer] 11/16/2024 4:26 AM [employer] Narrative [facility] - 11/16/2024 4:58 AM [employer] Saturday and only. Morning draw. us Josué Del Valle MD PhD LAB BLOOD ORDERABLES Fin al Result [facility] Department [place] [address] * eGFR (11/16/2024 12:13 AM [employer]) eGFR >90 >=60 mL/min/1. 73 m2 Comment: [...] reviewed 2021. Blood 11/16/2024 12:1 3 AM [employer] 11/16/2024 12:32 AM [employer] us Mark Figueroa MD PhD LAB BLOOD ORDERABLE S Final Result Performing Organization Address City/State/[facility] Co de Phone Number [facility] Department [place] [address] * Differential, auto (11/16/2024 12:13 AM [employer]) Neutrophil abs 3.6 1.5 - 6.5 K/cumm Imm gran abs 0.0 0.0 - 0.1 K/cumm [facility] Lymphocyte abs 2.8 0.8 - 3.3 K/cumm [facility] Monocyte abs 0.7 0.2 - 0.8 K/cumm [facility] Eosinophil abs 0.2 0.0 - 0.5 K/cumm [facility] Basophil abs 0.1 0.0 - 0.1 K/cumm [facility] Neutrophil pct 49.1 % [facility] Comment: Interpretive Data Percent cell count reference ranges are not reported, since discordance with absolute values may lead to misinterpretation of CBC data. Current Interpretive Data was last revised on 2018. Imm gran pct 0.4 % [facility] Comment: Interpretive Data Percent cell count reference ranges are not reported, since discordance with absolute values may lead to misinterpretation of CBC data. Current Interpretive Data was last revised on 2018. Lymphocyte pct 37.9 % [facility] Comment: Interpretive Data Percent cell count reference ranges are not reported, since discordance with absolute values may lead to misinterpretation of CBC data. Current Interpretive Data was last revised on 2018. Monocyte pct 8.9 % [facility] Comment: Interpretive Data Percent cell count reference ranges are not reported, since discordance with absolute values may lead to misinterpretation of CBC data. Current Interpretive Data was last revised on 2018. Eosinophil pct 3.0 % [facility] Comment: Interpretive Data Percent cell count reference ranges are not reported, since discordance with absolute values may lead to misinterpretation of CBC data. Current Interpretive Data was last revised on 2018. Basophil pct 0.7 % [facility] Comment: Interpretive Data Percent cell count reference ranges are not reported, since discordance with absolute values may lead to misinterpretation of CBC data. Current Interpretive Data was last revised on 2018. Blood 11/16/2024 12:1 3 AM [employer] 11/16/2024 12:32 AM [employer] us Mark Figueroa MD PhD LAB BLOOD ORDERABLE S Final Result [facility] Department of Laboratories [place], [place] [id number] * (ABNORMAL) CBC with auto differential (11/16/2024 12:13 AM [employer]) WBC 7.3 3.8 - 9.9 K/cumm Hgb 13.1 13.0 - 17.5 g/dL [facility] Hct 39.0 38.9 - 50.3 % [facility] Plt 314 150 - 400 K/cumm [facility] MPV 10.4 9.1 - 12.3 fL [facility] RBC 3.69(L) 4.30 - 5.80 M/cumm [facility] MCV 105.7(H) 81.3 - 96.4 fL [facility] MCH 35.5(H) 27.1 - 33.3 pg [facility] MCHC 33.6 32.3 - 35.7 g/dL [facility] RDW CV 15.1(H) 11.1 - 14.9 % [facility] RDW SD 58.9(H) 35.7 - 48.1 fL [facility] NRBC abs 0.02(H) 0.00 - 0.01 K/cumm [facility] Blood 11/16/2024 12:1 3 AM [employer] 11/16/2024 12:32 AM [employer] us Mark Figueroa MD PhD LAB BLOOD ORDERABLE S Final Result Performing Organization Address City/State/[facility] Co de Phone Number [facility] [place] [address] * Protime-INR (11/16/2024 12:13 AM [employer]) PT 10.6 9.7 - 13.0 sec INR 0.98 0.90 - 1.20 [facility] Comment: Interpretive data Oral anticoagulant therapeutic ranges: Venous thromboembolism prophylaxis or treatment: 2.0-3.0 CARDIOLOGY Standard range: 2.0-3.0 High-intensity range: 2.5-3.5 Refer to indication-specific guidelines for appropriate target ranges for prosthetic heart valve replacement. Current interpretive data was last revised on 2019. Blood 11/16/2024 12:1 3 AM [employer] 11/16/2024 12:35 AM [employer] Mark Figueroa MD PhD LAB BLOOD ORDERABLE S Final Result [facility] Department [place] [address] * (ABNORMAL) Basic metabolic panel (11/16/2024 12:13 AM [employer]) Pathologist [facility] Sodium 140 135 - 145 mmol/L Potassium, pl 4.8 3.3 - 4.9 mmol/L [facility] Comment:Hemolyzed; Potassium value may be falsely elevated by as much as 0.3-0.5 mmol/L. Suggest redraw and reanalysis. Chloride 100 97 - 110 mmol/L [facility] CO2 28 22 - 32 mmol/L [facility] Anion gap 12 2 - 15 mmol/L [facility] BUN 19 6 - 25 mg/dL [facility] Creatinine 0.63(L) 0.80 - 1.30 mg/dL [facility] Glucose 133 70 - 199 mg/dL [facility] Comment: Interpretive Data Fasting glucose >/= [...] 2022. Calcium 9.9 8.5 - 10.3 mg/dL [facility] Blood 11/16/2024 12:1 3 AM [employer] 11/16/2024 12:32 AM [employer] us Mark Figueroa MD PhD LAB BLOOD ORDERABLE S Final Result [facility] [place] [address] * POCT glucose (11/16/2024 12:12 AM [employer]) Glucose, POC 130 70 - 199 mg/dL Blood 11/16/2024 12:1 2 AM [employer] 11/16/2024 12:12 AM [employer] us Josué Del Valle MD PhD LAB POCT ORDERABLES - DE VICE Final Result [facility] [place] [address] * Lipid panel (07/14/2024 6:22 PM CDT) Pathologist [facility] Cholesterol 89 30 - 199 mg/dL Comment: [...] Lance et al. CÉSAR Cardiol. 2020 March 18;5(5):540543. doi: [email or web address] Current Interpretive Data was last [...] LAB BLOOD ORDERABLES Final R esult Z[facility] [address] [facility] Department of Laboratories [place], [place] [id number] * Albumin Creatinine Ratio, Urine (02/28/2022 8:57 AM CDT) Albumin Ur <12.0 mg/L [facility] Comment: Interpretive Data No reference range established. Current interpretive data was last revised 2019. Creatinine Ur 42.0 mg/dL [facility] Comment: Interpretive Data No reference range established. Current interpretive data was last revised 2019. Albumin Creatinine Ratio, Ur <29 1 - 29 mg/g [facility] Urine 02/28/2022 8:57 AM CDT 02/28/2022 1:[address] Montejo MD LAB URINE ORDERABLES Final Resu lt Performing Organization Address [facility]/ZIP Co de Phone Number [facility] [place] [address] * Hepatitis panel, acute (09/07/2021 4:28 AM CDT) Hep A IgM Nonreactive Nonreactive [facility] Comment: Interpretive Data: If Hep A IgM Ab is reported as Equivocal, a new sample should be drawn in two weeks for testing. Current interpretive data was last revised on 20. Hep B core IgM Nonreactive Nonreactive [facility] Comment: Interpretive Data If HepB Core IgM Ab is reported as Equivocal, a new sample should be drawn in two weeks for testing. Current interpretive data was last revised on 20. Hep C Ab Nonreactive Nonreactive [facility] Comment:Antibodies to HCV no t detected. Does NOT exclude the possibility of recent exposure to HCV. HepBsAg Nonreactive Nonreactive [facility] Blood 09/07/2021 4:28 AM CDT 09/07/2021 4:44 AM CDT Anaid Kruse MD LAB MICROBIOL OGY - GENERAL ORDERABLES Edited Result - Final Performing Organization Address [facility] Co de Phone Number [facility] [place] [address] * PSA screen (02/04/2017 8:36 AM CDT) PSA-Total 0.7 0.1 - 4.0 ng/mL [facility] Blood specimen (specimen) 02/04/2017 8:36 AM CDT 02/04/2017 9:05 AM CDT Josué Del Valle MD PhD LAB BLOOD ORDERABLES Fin al Result Performing Organization Address [facility] Co de Phone Number [facility] [place] [address] from Last 3 Months or Most Recently Relevant to Health Maintenance Additional Health Concerns Infection Onset 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 Insurance MEDICARE [employer] MEDICARE SOL[employer]IONS [facility] MEDICARE SOLUTIONS MEDICARE SOLUTIONS IDPA Advance Directives For more information, please contact: [phone] * Full Code (Latest Code Status on [...] 11:29 AM 06/24/2024 11:01 PM Care Teams Economic Forecaster Relationship Specialty Start Date End Date Kirt Lindsay, PCP - General Internal Medicine 02/02/21 Josué Del Valle MD PhD Medical Oncologist/Vault Custodian Medical Oncology 08/26/19 Cal Carranza DO [address] [place] [address] [id number] Churn Driller Helper Internal Medicine 06/12/23 Halie Khan MD [address] [place] [address] Certified Flight Instructor Critical Care Med 06/12/23 Wilfred Kinsey MD [address] [address] Consulting Physician Gastroenterology 03/02/24
--- OUTSIDE RECORDS SUMMARY | 2024-11-22 12:47 | XMS_ITS | Encounter Summary ---
Author Organization [facility] Address [address] [facility] [address] [place] [address] Phone Care Team Providers Care Vessel Welder Name Role Phone Josué Del Valle MD PhD Unavailable [phone] Kirt Lindsay DO Primary Care Provider [phone] Cal Carranza DO Unavailable [phone] Halie Khan MD Unavailable [phone] Wilfred Kinsey MD Unavailable Encounter Details Date Type Department Care Team (Late st Contact Info) Description 08/24/2024 Telephone [facility] Infectious Diseases [address] [place] [id number] Page [place] Social History Tobacco Use Types Packs/Day Years Used Date Smoking Tobacco: Some Days Cigarettes 0.5 40.4 Started: 1984 Smokeless Tobacco: Never Comments:pt states tried to quit; smoking 5 cigs/wk [facility] Utilities Answer Date Recorded In the past 12 months has [employer] electric, gas, oil, or water company threatened [...] week 07/24/2024 How often do you attend samaritan or restoration serv ices? 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 Gender Identity Not on file Sexual [...] documented as of this encounter Care Teams Vessel Welder Relationship Specialty Start Date End Date Kirt Lindsay DO PCP - General Internal Medicine 02/02/21 Josué Del Valle MD PhD Medical Oncologist/Cooker Tender Medical Oncology 08/26/19 Cal Carranza DO [address] [address] Mysql Developer Internal Medicine 06/12/23 Halie Khan MD [address] [address] Telecommunication Lines Repairer Critical Care Med 06/12/23 Wilfred Kinsey MD [address] [address] Consulting Physician Gastroenterology 03/02/24 documented as of this encounter
--- OUTSIDE RECORDS SUMMARY | 2024-11-22 12:47 | XMS_ITS | Encounter Summary ---
Author Organization [facility] Address [address] [place] [address] Phone Care Team Providers Care Sorter Packer Name Role Phone Josué Del Valle MD PhD Unavailable [phone] Kirt Lindsay DO Primary Care Provider [phone] Cal Carranza DO Unavailable [phone] Halie Khan MD Unavailable [phone] Wilfred Kinsey MD Unavailable Reason for Referral * Consultation (Routine) - Pending Review Specialty Diagnoses / Procedures Referred By Contac t Referred To Contact Pulmonary Disease / Pulmonology Diagnoses Acute myeloblastic leukemia, in remission (HCC) COPD exacerbation (HCC) Josué Del Valle MD PhD [address] DIV IM BONE MARROW TRANSPLANT, [address] [place] [address] Phone: tel: fax: Michael Garner MD [address] [facility] [address] [place] [address] Phone: tel: fax: Referral ID Status Reason Start Date Expiration Date Visits Requested Visits Authorized [id number] Pending Review Specialty Services Required 12/03/2025 1 1 Question Answer Please select the performing region: [facility] (All Locations) [167] # of visits: 1 Comments Copd OR CONTROL SYSTEMS ENGINEER Encounter Details Date Type Department Care Team (Late st Contact Info) Description 11/03/2024 Telephone [facility] Bone Marrow Transplant [address] [facility] Floor 6 [place] [address] Josué Del Valle MD PhD [address] DIV IM BONE MARROW TRANSPLANT[address] [place] [address] Social History Tobacco Use Types Packs/Day Years Used Date Smoking Tobacco: Some Days Cigarettes 0.5 40.4 Started: 1985 Smokeless Tobacco: Never Comments:pt states tried to quit; smoking 5 cigs/wk [facility] Utilities Answer Date Recorded In the past 12 months has [employer] electric, gas, oil, or water [email or web address] threatened to shut off services in your home? No 07/24/2024 Social Connection and Isolation Panel [NHANES] A nswer Date Recorded In a typical week, how many times do you talk on the phone with family, friends, or neighbors? Twice a week 07/24/2024 How often do you get together with friends or re latives? Once a week 07/24/2024 How often do you attend yarsani or baptist serv ices? 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 Gender Identity Not on file Sexual Orientation Not on file documented as of this encounter Miscellaneous Notes * Telephone Encounter - Marisa Mcdermott - 11/03/2024 2:59 PM CST Patient calling for a referral to a instrument room technician at [facility] OR CONTROL SYSTEMS ENGINEER documented in this encounter Plan of Treatment [...] documented as of this encounter Care Teams Sorter Packer Relationship Specialty Start Date End Date Kirt Lindsay DO PCP - General Internal Medicine 02/02/21 Josué Del Valle MD PhD Medical Oncologist/It Infrastructure Consultant Medical Oncology 08/26/19 Cal Carranza DO [address] [place] [address] Rx Specialist Internal Medicine 06/12/23 Halie Khan MD [address] [facility] [address] [place] [address] Roll Picker Critical Care Med 06/12/23 Wilfred Kinsey MD [address] [address] Consulting Physician Gastroenterology 03/02/24 documented as of this encounter
--- OUTSIDE RECORDS SUMMARY | 2024-11-22 12:47 | XMS_ITS ---
Author Organization [facility] Address [address] [place] [address] Care Team Providers Care Explosive Operator Grenade Name Role Phone Josué Del Valle MD PhD Unavailable [phone] Kirt Lindsay DO Primary Care Provider [phone] Cal Carranza DO Unavailable [phone] Halie Khan MD Unavailable [phone] Wilfred Kinsey MD Unavailable Active Problems Patient Care Coordination No te Formatting of this note is d ifferent from the original. 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 HLA typing/IDMs Insurance Approvals/Issues Discharge Planning Anticipated Discharge Date 08/03 Patient Education Completed Issue to be Resolved Before Discharge Discharge Disposition Home Requests Sent to Case Management and/or Medical Assistants CM: for IV amicasin Post-Discharge Follow-Up Living Situation/Distance from [place], [place] (local) Caregiver Lab/Transfusion Frequency Phone: Fax: Venous Access & Care peripheral Local Oncologist Contact Phone: Fax: Post-Discharge Office Visit (H30) JFD 12/09 w/ RADIATOR CLEANER Jame Miscellaneous Notes: Problem Noted Date Diagnosed Date 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 CAD (coronary artery disease) 11/16/2024 Assessment & Plan (11/18/2024 10:42 AM PROCED TECH): S/p PCI to RCA in 2022 -cont [...] for 4d of worsening SOB. Presented to [facility] ED 07/19 for SOB and treated for COPD exac with pred course. Presented to [place] on 07/21 for worsening SOB. CXR and [...] 06/19/2024 Assessment & Plan (11/17/2024 12:22 PM PROCED TECH): Follows with ID; last seen in clinic [...] with expectation of submitting this to [facility] lab on ~07/13. Beginning empiric [...] 06/16/2024 Assessment & Plan (11/17/2024 12:22 PM PROCED TECH): RD following Assessment & Plan (07/24/2024 1:02 [...] 02/20/2024 Assessment & Plan (11/18/2024 10:43 AM PROCED TECH): After eating chicken/spaghetti on 11/14 felt pressure/stuck [...] disease) Assessment & Plan (11/17/2024 12:17 PM PROCED TECH): He has Ventolin inhaler, Trelegy inhaler, albuterol inhaler, and Singulair 10 a day. On 3L oxygen at home Biliary sludge 12/20/2021 Overview (12/20/2021): Added automatically from request for surgery [id number] Other osteoporosis without current pathological fracture 11/23/2021 Encounter for removal of biliary stent Overview (10/03/2021): Added automatically from request for surgery [id number] Elevated LFTs 09/08/2021 Assessment & Plan (09/10/2021 [...] (09/07/2021): Added automatically from request for surgery [id number] Assessment & Plan (07/25/2024 12:01 PM CDT): - Recent hx pancreatitis admission without obvious source. Pain was slowly recurring in the last few days. Lipase was WNL at LFTs wnl at OSH and wnl on repeat here. Improving. - Pain control. - Tolerating mechanical soft diet Upper GI bleed 09/07/2021 Overview (09/07/2021): Added automatically from request for surgery [id number] Assessment & Plan (09/10/2021 9:18 AM CDT): [...] (03/30/2021): Added automatically from request for surgery [id number] Assessment & Plan (08/09/2021 10:27 AM CDT): [...] (06/16-06/20) Assessment & Plan (11/26/2019 10:45 AM PROCED TECH): POA. Possibly community-acquired and/or 2/[address] Strep pneumoniae pos sputum cx. See SOB problem. Shortness of breath 11/20/2019 Assessment & Plan (11/27/2019 12:14 PM PROCED TECH): Concern for poss GVHD and/or poss COPD [...] assessment CHF (congestive heart failure) ([facility]) 020 Assessment & Plan (11/16/2024 3:06 AM PROCED TECH): Euvolemic on exam currently; no new SOB - continue metop, jardiance Assessment & Plan (07/26/2024 11:49 AM CDT): TTE 03/2024 with LVEF 50-55%. Pro BNP at OSH >30k. Last adm here 1012. Appears euvolemic. S/p Lasix at OSH and [place] [address] - repeat TTE 07/24: LVEF 30%, moderate [...] 1012 Assessment & Plan (11/28/2019 10:27 AM PROCED TECH): Closely monitor blood sugar to avoid hypoglycemia Assessment & Plan (11/27/2019 1:35 PM PROCED TECH): Closely monitor blood sugar to avoid hypoglycemia Assessment & Plan (11/26/2019 5:32 PM PROCED TECH): Closely monitor blood sugar to avoid hypoglycemia Assessment & Plan (11/25/2019 4:51 PM PROCED TECH): Closely monitor blood sugar to avoid hypoglycemia Assessment & Plan (11/24/2019 4:57 PM PROCED TECH): Closely monitor blood sugar to avoid hypoglycemia Assessment & Plan (11/23/2019 2:01 PM PROCED TECH): Closely monitor blood sugar to avoid hypoglycemia Assessment & Plan (11/24/2019 10:51 AM PROCED TECH): With diastolic dysfunction, new diagnosis. -Continue Lasix. [...] TID Assessment & Plan (11/20/2019 4:17 PM PROCED TECH): Continue gabapentin Tobacco abuse 11/20/2019 Assessment & Plan (06/16/2024 6:44 PM CDT): Encourage cessation Assessment & Plan (11/20/2019 4:18 PM PROCED TECH): Nicotine patch Depressed mood 11/24/2018 Assessment & Plan (11/24/2018 4:56 PM PROCED TECH): With feelings of depressed mood prior to [...] therapy. DVT (deep venous thrombosis) ([facility]) 9 Assessment & Plan (11/18/2024 10:42 AM PROCED TECH): DVT lower ext 2012, DVT IJ 2018, [...] Xeralto Assessment & Plan (11/20/2019 3:57 PM PROCED TECH): Continue xarelto Assessment & Plan (11/23/2018 11:32 AM PROCED TECH): Cont Xarelto. Sinusitis 11/22/2018 Assessment & Plan (11/24/2018 4:48 PM PROCED TECH): Chronic issue over last 2 months. -With [...] PE-->no pneumonia. COPD with exacerbation ([facility]) 11/22/2018 Assessment & Plan (07/24/2024 1:00 PM [...] exertion Assessment & Plan (11/20/2019 4:16 PM PROCED TECH): Continue inhalers Assessment & Plan (11/23/2018 11:29 AM PROCED TECH): Continues to smoke >1 ppd. -Cont steroids at current dose. -Cont Advair diskus BID, cont albuterol inh QID. -Encourage smoking cessation. Cont nicotine patch. Cough 10/17/2018 Pure hypercholesterolemia 08/04/2018 Assessment & Plan (02/12/2022 6:02 AM CDT): - continue home dose atorvastatin 40 mg PO daily Assessment & Plan (01/15/2020 3:22 PM PROCED TECH): -LDL at goal -will continue atorvastatin 40 mg daily Assessment & Plan (11/28/2019 10:27 AM PROCED TECH): On atorvastatin 40 mg daily Assessment & Plan (11/27/2019 1:35 PM PROCED TECH): On atorvastatin 40 mg daily Assessment & Plan (11/26/2019 5:32 PM PROCED TECH): On atorvastatin 40 mg daily Assessment & Plan (11/25/2019 4:50 PM PROCED TECH): On atorvastatin 40 mg daily Assessment & Plan (11/24/2019 4:57 PM PROCED TECH): On atorvastatin 40 mg daily Assessment & Plan (11/23/2019 2:02 PM PROCED TECH): On atorvastatin 40 mg daily Assessment & Plan (11/20/2019 4:18 PM PROCED TECH): Continue statin Assessment & Plan (08/07/2019 1:35 [...] level Assessment & Plan (01/15/2020 3:22 PM PROCED TECH): -vitamin D levels still low, unclear compliance -will continue current regimen Assessment & Plan (11/28/2019 10:29 AM PROCED TECH): Last vitamin-D level low at 16. Continue vitamin D2 88201 units weekly and vitamin D3 2000 units daily Assessment & Plan (11/27/2019 1:35 PM PROCED TECH): Last vitamin-D level low at 16. Continue vitamin D2 13348 units weekly and vitamin D3 2000 units daily Assessment & Plan (11/26/2019 5:32 PM PROCED TECH): Last vitamin-D level low at 16. Continue vitamin D2 49901 units weekly and vitamin D3 2000 units daily Assessment & Plan (11/25/2019 4:51 PM PROCED TECH): Last vitamin-D level low at 16. Continue vitamin D2 83612 units weekly and vitamin D3 2000 units daily Assessment & Plan (11/24/2019 4:57 PM PROCED TECH): Last vitamin-D level low at 16. Continue vitamin D2 98284 units weekly and vitamin D3 2000 units daily Assessment & Plan (11/23/2019 2:02 PM PROCED TECH): Last vitamin-D level low at 16. Continue vitamin D2 38270 units weekly and vitamin D3 2000 units [...] 200805/06/2018 Assessment & Plan (11/18/2024 10:41 AM PROCED TECH): AML. S/p 7+3 and hidac consolidation x3, decitabine maintenance on CAL 08075 protocol. Had relapse s/p AMD/MEC. 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 -Last seen by Dr. Del Valle 06/12/23, in remission - acyclovir 400 t.i.d and antifungal ppx with voriconazole vs cresemba. Plan med rec w Straightedge Machine Operator Helper today Assessment & Plan (06/17/2024 3:28 PM CDT): Follows Dr. Bauman, last seen in clinic on 06/09/2023 -AML diagnosed in 2008 s/p 7+3 and HiDAC consolidation x3 followed by Decitabine maintenance on the CALGB 19959 protocol. -Followed by Relapsed disease, status post [...] followed by Decitabine maintenance on the CALGB 94207 protocol. Followed by Relapsed disease, status post [...] consolidation x3.??Followed by??Decitabine maintenance on the CALGB 21346 protocol??and relapsed disease, status post AMD/MEC. -??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Most recent BMBx in our records is from 12/12/2017 with neg path and flow -OI prophylaxis, acyclovir Assessment & Plan (08/17/2021 3:45 PM CDT): S/p Busulfan and Cytoxan on the [facility] allogeneic study with his sister, 08/27 match; with day 0 on 11/09/2009 after induction with 7+3 and HiDAC consolidation x3. Followed by Decitabine maintenance on the CALGB 06735 protocol and relapsed disease, status post AMD/MEC. 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 -??Relapsed disease,??status post an allogeneic transplant with busulfan and Cytoxan on the [facility] allogeneic study with his sister, 08/27 match; with day 0 on 11/09/2009.?? - Currently in remission. Follows with Dr. Del Valle - On tacro, cellcept - OI ppx: Cont acyclovir. Added vori and bactrim (pt stated he was no longer taking at home). Assessment & Plan (11/23/2018 11:24 AM PROCED TECH): -s/p sibling allo SCT on 11/09/09, now in CR with no e/o recurrence. 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 -Cont OI ppx with Bactrim, acyclovir. Type 2 diabetes mellitus 05/06/2018 Assessment & Plan (11/18/2024 10:43 AM PROCED TECH): On lantus/humalog at home (he reports taking [...] steroids Assessment & Plan (01/15/2020 3:24 PM PROCED TECH): -poorly controlled, exacerbated by prednisone use -Hgb [...] goal Assessment & Plan (11/28/2019 10:29 AM PROCED TECH): Patient has uncontrolled type 2 diabetes with [...] education. Assessment & Plan (11/27/2019 1:35 PM PROCED TECH): Patient has uncontrolled type 2 diabetes with [...] education. Assessment & Plan (11/26/2019 5:32 PM PROCED TECH): Patient has uncontrolled type 2 diabetes with [...] here. Assessment & Plan (11/25/2019 4:50 PM PROCED TECH): Patient has uncontrolled type 2 diabetes with [...] here. Assessment & Plan (11/24/2019 4:57 PM PROCED TECH): Patient has uncontrolled type 2 diabetes with [...] here. Assessment & Plan (11/23/2019 2:01 PM PROCED TECH): Patient has uncontrolled type 2 diabetes with [...] here. Assessment & Plan (11/28/2019 9:33 AM PROCED TECH): On basaglar 30 units AM and novolog [...] goal Assessment & Plan (11/24/2018 4:59 PM PROCED TECH): -Poorly controlled, recently stopped checking glucose as [...] needles and sent e-script to [facility] in [place] on 11/24. Pt has script for glucose [...] takes acyclovir and voriconazole for medical ppx Nxdgc-puokok-wphy disease 07/08/2012 Assessment & Plan (06/18/2024 12:56 [...] daily Assessment & Plan (11/28/2019 10:27 AM PROCED TECH): Prednisone decreased to 20 mg daily Assessment & Plan (11/27/2019 1:32 PM PROCED TECH): Prednisone decreased to 20 mg daily Assessment & Plan (11/26/2019 5:31 PM PROCED TECH): Plan to taper prednisone to 20 mg daily Assessment & Plan (11/25/2019 4:49 PM PROCED TECH): He is on prednisone 20 mg BID Assessment & Plan (11/24/2019 4:54 PM PROCED TECH): He is on prednisone 20 mg BID Assessment & Plan (11/23/2019 2:01 PM PROCED TECH): Starting on prednisone 20 twice daily today Assessment & Plan (11/27/2019 12:13 PM PROCED TECH): Continue cellcept 1 g BID and tacrolimus??0.5 [...] 3x/weekly Assessment & Plan (11/24/2018 11:50 AM PROCED TECH): cGVHD of eyes, mouth, 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 -Cont pred 10 mg BID, MMF 1g BID, tacrolimus 0.5 mg QOD. -F/u tac trough (due 1/8 AM). Osteopenia 11/27/2011 Assessment & Plan (01/15/2020 3:23 PM PROCED TECH): -DEXA scan done 07/2019 revealed stable BMD -will continue vitamin D supplementation and dietary calcium Assessment & Plan (11/20/2019 3:55 PM PROCED TECH): Continue home vitamin D and dietary calcium [...] treatments are documented for this patient in [facility]. Treatments may have been administered in another [...]
--- OUTSIDE RECORDS SUMMARY | 2024-11-22 12:47 | XMS_ITS | Encounter Summary ---
Author Organization [facility] Address [address] [place] [address] Phone Care Team Providers Care Cafeteria Counter Attendant Name Role Phone Josué Del Valle MD PhD Unavailable [phone] Kirt Lindsay DO Primary Care Provider [phone] Cal Carranza DO Unavailable [phone] Halie Khan MD Unavailable [phone] Wilfred Kinsey MD Unavailable Encounter Details Date Type Department Care Team (Late st Contact Info) Description 11/02/[address] [facility] Bone Marrow Transplant [address] [facility] [address] [place] [address] Josué Del Valle MD PhD [address] DIV IM BONE MARROW TRANSPLANT[address] [place] [address] Social History Tobacco Use Types Packs/Day Years Used Date Smoking Tobacco: Some Days Cigarettes 0.5 40.4 Started: 1984 Smokeless Tobacco: Never Comments:pt states tried to quit; smoking 5 cigs/wk [facility] Utilities Answer Date Recorded In [...] How often do you attend scientology or shinto serv ices? Never 07/24/2024 Do you belong [...] in the past 12 m [facility], were you homeless or living in a longterm (including now)? No 07/24/2024 Personal Safety Answer Date Recorded Have you ever been in or are you currently in a harmful physical or emotional relationship or is someone making you feel afraid or unsafe? 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 Male 10:48 AM RN INFUSION Gender Identity Not on file Sexual Orientation [...] - 11/02/2024 11:40 AM CST Refill sent INFUSION * Telephone Encounter - Marisa Mcdermott - 11/02/2024 11:23 AM CST Patient calling for a refill for his [facility] to [facility] INFUSION documented in this encounter Plan of Treatment [...] documented as of this encounter Care Teams Cafeteria Counter Attendant Relationship Specialty Start Date End Date Kirt Lindsay DO PCP - General Internal Medicine 02/02/21 Josué Del Valle MD PhD Medical Oncologist/Proposal Manager Medical Oncology 08/26/19 Cal Carranza DO [address] [place] [address] Employee Relation Manager Internal Medicine 06/12/23 Halie Khan MD [address] [facility] [address] [place] [address] Metal Mold Dresser Critical Care Med 06/12/23 Wilfred Kinsey MD [address] [address] Consulting Physician Gastroenterology 03/02/24 documented as of this encounter
--- OUTSIDE RECORDS SUMMARY | 2024-11-22 12:47 | XMS_ITS | Encounter Summary ---
Author Organization [facility] Address [address] [facility] [address] [place] [address] Phone Care Team Providers Care Electric Range Servicer Name Role Phone Josué Del Valle MD PhD Unavailable [phone] Kirt Lindsay DO Primary Care Provider [phone] Cal Carranza DO Unavailable [phone] Halie Khan MD Unavailable [phone] Wilfred Kinsey MD Unavailable Reason for Visit * Reason Onset Date Comments opat monitoring note 08/31/2024 Encounter Details Date Type Department Care Team (Late st Contact Info) Description 08/31/2024 Documentation [facility] Infectious Diseases [address] [place] [address] [address] [place] [address] Page Marsh opat monitoring note Social History Tobacco Use Types Packs/Day Years Used Date Smoking Tobacco: Some Days Cigarettes 0.5 40.4 Started: 1984 Smokeless Tobacco: Never Comments:pt states tried to quit; smoking 5 cigs/wk [facility] Utilities Answer Date Recorded In the past 12 months has [employer], gas, oil, or water [employer] threatened to shut off services in your home? No 07/24/2024 Social Connection and Isolation Panel [NHANES] A nswer Date Recorded In a typical week, how many times do you talk on the phone with family, friends, or neighbors? Twice a week 07/24/2024 How often do you get together with friends or re latives? Once a week 07/24/2024 How often do you attend zoroastrian or moravian serv ices? Never 07/24/2024 Do you belong to any clubs o r organizations such as zoroastrian groups, unions, fraternal or athletic groups, or [...] in a snf (including now)? No 03/30/2024 Housing Stability Vital Sign Answer Mor[place] e Recorded In the last 12 months, was t here a time when you were not able to pay the mortgage or rent on time? No 07/24/2024 In the past 12 months, how m any times have you moved where you were living? 0 07/24/2024 At any time in the past 12 m [facility], were you homeless or living in a snf (including now)? No 07/24/2024 Personal Safety Answer Date Recorded Have you ever been in or are you currently in a harmful physical or emotional relationship or is someone making you feel afraid or unsafe? 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 [...] level ----- Message ----- From: Birgit Waldron [facility] Sent: 08/31/2024 3:17 PM CDT To: [...] documented as of this encounter Care Teams Electric Range Servicer Relationship Specialty Start Date End Date Kirt Lindsay DO PCP - General Internal Medicine 02/02/21 Josué Del Valle MD PhD Medical Oncologist/School Psychologist Medical Oncology 08/26/19 Cal Carranza DO [address] [facility] [address] [place], [place] [id number] Seismic Survey Assistant Internal Medicine 06/12/23 Halie Khan MD [address] [facility] [address] [place], [place] [id number] Tape Calender Critical Care Med 06/12/23 Wilfred Kinsey MD [address] [address] Consulting Physician Gastroenterology 03/02/24 documented as of this encounter
--- OUTSIDE RECORDS SUMMARY | 2024-11-22 12:47 | XMS_ITS | Encounter Summary ---
Author Organization [facility] Address [address] [facility] [address] [place] [address] Phone Care Team Providers Care Dredge Hand Name Role Phone Josué Del Valle MD PhD Unavailable [phone] Kirt Lindsay DO Primary Care Provider [phone] Cal Carranza DO Unavailable Halie Khan MD Unavailable [phone] Wilfred Kinsey MD Unavailable Encounter Details Date Type Department Care Team (Late st Contact Info) Description 08/31/2024 Telephone [facility] Infectious Diseases [address] [place] [address] Page Marsh Social History Tobacco Use Types Packs/Day Years Used Date Smoking Tobacco: Some Days Cigarettes 0.5 40.4 Started: 1984 Smokeless Tobacco: Never Comments:pt states tried to quit; smoking 5 cigs/wk [facility] Utilities Answer Date Recorded In the past 12 months has [employer], gas, oil, or water company threatened [...] How often do you attend restorationism or faith serv ices? 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
--- OUTSIDE RECORDS SUMMARY | 2024-11-22 12:47 | XMS_ITS | Encounter Summary ---
Author Organization [facility] Address [address] [place] [address] Phone Care Team Providers Care Pharmacist Technician Name Role Phone Josué Del Valle MD PhD Unavailable [phone] Kirt Lindsay DO Primary Care Provider [phone] Cal Carranza DO Unavailable [phone] Halie Khan MD Unavailable [phone] Wilfred Kinsey MD Unavailable Reason for Visit * Reason Onset Date Comments OPAT Sign-Off 08/27/2024 Encounter Details Date Type Department Care Team (Late st Contact Info) Description 08/27/2024 Documentation [facility] Infectious Diseases [address] [place] [phone] Page Marsh OPAT Sign-Off Social History Tobacco Use Types Packs/Day Years Used Date Smoking Tobacco: Some Days Cigarettes 0.5 40.4 Started: 1985 Smokeless Tobacco: Never Comments:pt states tried to quit; smoking 5 cigs/wk [facility] Utilities Answer Date Recorded In the past 12 months has [employer], gas, oil, or water company threatened to [...] week 07/24/2024 How often do you attend cheondoism or restorationist serv ices? Never 07/24/2024 Do you belong to any clubs o r organizations such as cheondoism groups, unions, fraternal or athletic groups, or [...] place to sleep or slept in a fpc (including now)? No 03/30/2024 Housing Stability Vital [...] were you homeless or living in a fpc (including now)? No 07/24/2024 Personal Safety Answer Date Recorded Have you ever been in or are you currently in a harmful physical or emotional relationship or is someone making you feel afraid or unsafe? 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 Male 10:48 AM CHICKEN TENDER Gender Identity Not on file Sexual [...] documented as of this encounter Care Teams Pharmacist Technician Relationship Specialty Start Date End Date Kirt Lindsay DO PCP - General Internal Medicine 02/02/21 Josué Del Valle MD PhD Medical Oncologist/Windscreen Fitter Medical Oncology 08/26/19 Cal Carranza DO [address] [facility] [address] [place] [address] Suit Maker Internal Medicine 06/12/23 Halie Khan MD [address] [address] Cigar Head Holer Critical Care Med 06/12/23 Wilfred Kinsey MD [address] [address] Consulting Physician Gastroenterology 03/02/24 documented as of this encounter
--- OUTSIDE RECORDS SUMMARY | 2024-11-22 12:47 | XMS_ITS | Encounter Summary ---
Author Organization [facility] Address [address] [facility] [address] [place] [address] Phone Care Team Providers Care Traffic Sign Erection Supervisor Name Role Phone Josué Del Valle MD PhD Unavailable [phone] Kirt Lindsay DO Primary Care Provider [phone] Cal Carranza DO Unavailable [phone] Halie Khan MD Unavailable [phone] Wilfred Kinsey MD Unavailable Encounter Details Date Type Department Care Team (Late st Contact Info) Description 08/26/2024 Documentation [facility] Infectious Diseases [address] [place] [phone] Page [place] Social History Tobacco Use Types Packs/Day Years Used Date Smoking Tobacco: Some Days Cigarettes 0.5 40.4 Started: 1985 Smokeless Tobacco: Never Comments:pt states tried to quit; smoking 5 cigs/wk [facility] Utilities Answer Date Recorded In the past 12 months has [employer], gas, oil, or water company threatened [...] week 07/24/2024 How often do you attend jehovah's witness or anglican serv ices? Never 07/24/2024 Do you belong [...] any time in the past 12 m [facility], were you homeless or living in [...] file Legal Sex Male 10:48 AM CLIENT SERVICES MANAGER Gender Identity Not on file [...] documented as of this encounter Care Teams Traffic Sign Erection Supervisor Relationship Specialty Start Date End Date Kirt Lindsay DO PCP - General Internal Medicine 02/02/21 Josué Del Valle MD PhD Medical Oncologist/Buckram Sewer Medical Oncology 08/26/19 Cal Carranza DO [address] [place] [place] [address] Lunchroom Food Service Supervisor Internal Medicine 06/12/23 Halie Khan MD [address] [place], [place] [id number] Professor Of Education Critical Care Med 06/12/23 Wilfred Kinsey MD [address] [facility] [place] [address] Consulting Physician Gastroenterology 03/02/24 documented as of this encounter
--- OUTSIDE RECORDS SUMMARY | 2024-11-22 12:47 | XMS_ITS | Encounter Summary ---
Author Organization [facility] Address [address] [facility] [address] [place] [address] Phone Care Team Providers Care High Energy Forming Equipment Operator Name Role Phone Josué Del Valle MD PhD Unavailable [phone] Kirt Lindsay DO Primary Care Provider [phone] Cal Carranza DO Unavailable [phone] Halie Khan MD Unavailable [phone] Wilfred Kinsey MD Unavailable Reason for Visit * Reason Onset Date Comments opat monitoring note 09/01/2024 Encounter Details Date Type Department Care Team (Late st Contact Info) Description 09/01/2024 Documentation [facility] Infectious Diseases [address] [place] [address] [address] [place] [address] Page Marsh opat monitoring note Social History Tobacco Use Types Packs/Day Years Used Date Smoking Tobacco: Some Days Cigarettes 0.5 40.4 Started: 1985 Smokeless Tobacco: Never Comments:pt states tried to quit; smoking 5 cigs/wk [facility] Utilities Answer Date Recorded In the past 12 months has [employer], gas, oil, or water [employer] threatened to shut off services in [...] How often do you attend rastafarian or samaritan serv ices? Never 07/24/2024 Do you belong [...] on file Legal Sex Male 10:48 AM REAMER HAND Gender Identity Not on file Sexual [...] documented as of this encounter Care Teams High Energy Forming Equipment Operator Relationship Specialty Start Date End Date Kirt Lindsay DO PCP - General Internal Medicine 02/02/21 Josué Del Valle MD PhD Medical Oncologist/Plastics Fabrication Supervisor Medical Oncology 08/26/19 Cal Carranza DO [address] [facility] [address] [place] [address] Food And Beverage Cashier Internal Medicine 06/12/23 Halie Khan MD [address] [facility] [address] [place] [address] Games Dealer Critical Care Med 06/12/23 Wilfred Kinsey MD [address] [address] Consulting Physician Gastroenterology 03/02/24 documented as of this encounter
--- OUTSIDE RECORDS SUMMARY | 2024-11-22 12:47 | XMS_ITS | Encounter Summary ---
Author Organization [facility] Address [address] [facility] [address] [place] [address] Phone Care Team Providers Care Horticultural Specialty Grower Name Role Phone Josué Del Valle MD PhD Unavailable [phone] Kirt Lindsay DO Primary Care Provider [phone] Cal Carranza DO Unavailable [phone] Halie Khan MD Unavailable [phone] Wilfred Kinsey MD Unavailable Encounter Details Date Type Department Care Team (Late st Contact Info) Description 08/24/[address] [facility] Infectious Diseases [address] [place] [phone] Page Marsh Social History Tobacco Use Types Packs/Day Years Used Date Smoking Tobacco: Some Days Cigarettes 0.5 40.4 Started: 1985 Smokeless Tobacco: Never Comments:pt states tried to quit; smoking 5 cigs/wk [facility] Utilities Answer Date Recorded In the past 12 months has [employer], gas, oil, or water company threatened [...] How often do you attend orthodox or mandaeism serv ices? Never 07/24/2024 Do [...] living in a penitentiary (including now)? No 07/24/2024 Personal Safety Answer Date Recorded Have you ever been in or are you currently in a harmful physical or emotional relationship or is someone making you feel afraid or unsafe? 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 Gender Identity Not on file Sexual [...] as of this encounter Care Teams Horticultural Specialty Grower Relationship Specialty Start Date End Date Kirt Lindsay DO PCP - General Internal Medicine 02/02/21 Josué Del Valle MD PhD Medical Oncologist/Assembler Final Medical Oncology 08/26/19 Cal Carranza DO [address] [address] Regional Sales Associate Internal Medicine 06/12/23 Halie Khan MD [address] [address] Aviation Safety Officer Critical Care Med 06/12/23 Wilfred Kinsey MD [address] [address] Consulting Physician Gastroenterology 03/02/24 documented as of this encounter
--- OUTSIDE RECORDS SUMMARY | 2024-11-22 12:47 | XMS_ITS | Encounter Summary ---
Author Organization [facility] Address [address] [place] [address] Phone Care Team Providers Care Solutions Sales Consultant Name Role Phone Josué Del Valle MD PhD Unavailable Kirt Lindsay DO Primary Care Provider [phone] Cal Carranza DO Unavailable [phone] Halie Khan MD Unavailable [phone] Wilfred Kinsey MD Unavailable Reason for Visit * Reason Onset Date Comments Follow-up 10/30/2024 Encounter Details Date Type Department Care Team (Late st Contact Info) Description 10/30/2024 Telephone [facility] Endocrinology Metabolism and Lipid [address] [facility] Medicine 13th [place] [address] [place] [address] Bela Orellana, BECKI Follow-up Social History Tobacco Use Types Packs/Day Years Used Date Smoking Tobacco: Some Days Cigarettes 0.5 40.4 Started: 1985 Smokeless Tobacco: Never Comments:pt states tried to quit; smoking 5 cigs/wk [facility] Utilities Answer Date Recorded In the past 12 months has th e electric, gas, oil, or water [employer] threatened to shut off services in your [...] How often do you attend amish or yarsanism serv ices? Never 07/24/2024 Do you belong [...] time in the past 12 m [facility], were you homeless or living in [...] file Legal Sex Male 10:48 AM RN ORTHOPEDIC Gender Identity Not on file Sexual Orientation Not on file documented as of this encounter Miscellaneous Notes * Telephone Encounter - Bela Orellana RN - 10/30/2024 2:45 PM RN ORTHOPEDIC Patient left voicemail to catch up with Dr. Montejo, recently discharged from hospital and states he has had a lot going on. Attempted to call back, no answer and VM box full. [employer] message sent. 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 documented as of this encounter Care Teams Solutions Sales Consultant Relationship Specialty Start Date End Date Kirt Lindsay DO PCP - General Internal Medicine 3/18/21 Josué Del Valle MD PhD Medical Oncologist/Risk And Insurance Consultant Medical Oncology 08/26/[address] [address] Cement Tester Assistant Internal Medicine 06/12/23 Halie Khan MD [address] [address] Revolving Inventory Clerk Critical Care Med 06/12/23 Wilfred Kinsey MD [address] [address] Consulting Physician Gastroenterology 03/02/24 documented as of this encounter
--- OUTSIDE RECORDS SUMMARY | 2024-11-22 12:47 | XMS_ITS | Encounter Summary ---
Author Organization [facility] Address [address] [facility] [address] [place] [address] Phone Care Team Providers Care Turbogenerator Operator Name Role Phone Josué Del Valle MD PhD Unavailable [phone] Kirt Lindsay DO Primary Care Provider [phone] Cal Carranza DO Unavailable [phone] Halie Khan MD Unavailable [phone] Wilfred Kinsey MD Unavailable Encounter Details Date Type Department Care Team (Late st Contact Info) Description 08/24/2024 Documentation [facility] Infectious Diseases [address] [place] [phone] Page Marsh Social History Tobacco Use Types Packs/Day Years Used Date Smoking Tobacco: Some Days Cigarettes 0.5 40.4 Started: 1985 Smokeless Tobacco: Never Comments:pt states tried to quit; smoking 5 cigs/wk [facility] Utilities Answer Date Recorded In the past 12 months has [employer], gas, oil, or water company threatened [...] week 07/24/2024 How often do you attend sikh or restorationism serv ices? Never 07/24/2024 Do you belong to any clubs o r organizations such as sikh groups, unions, fraternal or athletic groups, or [...] on file Legal Sex Male 10:48 AM CREAM HAULER Gender Identity Not on file Sexual Orientation [...] documented as of this encounter Care Teams Turbogenerator Operator Relationship Specialty Start Date End Date Kirt Lindsay DO PCP - General Internal Medicine 02/02/21 Josué Del Valle MD PhD Medical Oncologist/Bleacher Pulp Medical Oncology 08/26/19 Cal Carranza DO [address] [address] Train Electronic Technician Internal Medicine 06/12/23 Halie Khan MD [address] [facility] [address] [address] [address] Programmer Critical Care Med 06/12/23 Wilfred Kinsey MD [address] [address] Consulting Physician Gastroenterology 03/02/24 documented as of this encounter
--- OUTSIDE RECORDS SUMMARY | 2024-11-22 12:48 | XMS_ITS | Encounter Summary ---
Author Organization 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) Procedures ECG 12 lead Kimberly Frazier NP [address] [place] [address] Phone: tel: fax: [facility] (All Locations) Referral ID Status Reason Start Date Expiration Date V isits Requested Visits Authorized [id number] Authorized 08/18/2024 09/17/2025 1 1 Reason for Visit * Reason Comments Follow-up * Consultation (Routine) - Authorized Specialty Diagnoses / Procedures Referred By Ana M anderson Referred To Contact Infectious Diseases Diagnoses 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[facility]) Krista Hay DO [address] [facility] [address] [place] [address] Phone: tel: fax: [facility] (All Locations) Referral ID Status Reason Start Date Expiration Date Visits Requested Visits Authorized [id number] Authorized Specialty Services Required 07/28/2024 08/27/2025 3 3 Encounter Details Date Type Department Care Team (Latest Contact Info) Description 08/18/2024 9:00 AM CDT Office Visit [facility] Infectious Diseases [address] [place] [phone] Kimberly Frazier NP [address] [address] 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[facility]) Social History Tobacco Use Types Packs/Day Years Used Date Smoking Tobacco: Some Days Cigarettes 0.5 40.4 Started: 1985 Smokeless Tobacco: Never Comments:pt states tried to quit; smoking 5 cigs/wk [facility] Utilities Answer Date Recorded In the past 12 months has [employer], gas, oil, or water [employer] threatened to shut off services in your home? No 07/24/2024 Social Connection and Isolation Panel [NHANES] A nswer Date Recorded In a typical week, how many times do you talk on the phone with family, friends, or neighbors? Twice a week 07/24/2024 How often do you get together with friends or re latives? Once a week 07/24/2024 How often do you attend confucianist or congregational serv ices? 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 Type 2 diabetes mellitus ([facility]) Pure hypercholesterolemia Vitamin D deficiency Cough Sinusitis COPD with exacerbation ([facility]/HCC) ([facility]) DVT (deep venous thrombosis) ([facility]/HCC) ([facility]) Depressed mood Shortness of breath CHF (congestive heart failure) ([facility]) ([facility]) Peripheral neuropathy Tobacco abuse Pneumonia [...] 400 mg tablet flash glucose scanning reader (Kavalia Evaristo 2 Crystal) [facility] flash glucose sensor (RehabDevStyle Evaristo 2 Sensor) kit [id number]-xibsvuekp-wylaqfda (Trelegy Ellipta) 200-62.5-25 mcg inhaler gabapentin (NEURONTIN) [...] ID screening: Lab Results Component Value Date [id number] Nonreactive 03/04/2024 HEPCAB Nonreactive 09/07/2021 Micro: 06/16/24 [...] documented as of this encounter Care Teams Trolley Car Overhauler Relationship Specialty Start Date End Date Kirt Lindsay DO PCP - General Internal Medicine 02/02/21 Josué Del Valle MD PhD Medical Oncologist/Road Manager Medical Oncology 08/26/19 Cal Carranza DO [address] [place] [address] Irrigation Teacher Internal Medicine 06/12/23 Halie Khan MD [address] [place] [address] School Child Care Attendant Critical Care Med 06/12/23 Wilfred Kinsey MD [address] [facility] [address] [place] [id number] Consulting Physician Gastroenterology 03/02/24 documented as of this encounter
--- OUTSIDE RECORDS SUMMARY | 2024-11-22 12:48 | XMS_ITS | Encounter Summary ---
Author Organization [facility] Address [address] [place] [address] Care Team Providers Care Tank Tender Name Role Phone Josué Del Valle MD PhD Unavailable [phone] Kirt Lindsay DO Primary Care Provider [phone] Cal Carranza DO Unavailable [phone] Halie Khan MD Unavailable [phone] Wilfred Kinsey MD Unavailable Encounter Details Date Type Department Care Team (Late st Contact Info) Description 08/07/2024 Documentation [facility] Isolation Infection [address] [place] [address] Sonia Pina, COMBER FIXER [address] [place] [address] Social History Tobacco Use Types Packs/Day Years Used Date Smoking Tobacco: Some Days Cigarettes 0.5 40.4 Started: 1985 Smokeless Tobacco: Never Comments:pt states tried to quit; smoking 5 cigs/wk [facility] Utilities Answer Date Recorded In the past 12 months has [employer], gas, oil, or water [employer] threatened to shut off services in your home? No 07/24/2024 Social Connection and Isolation Panel [NHANES] A nswer Date Recorded In a typical week, how many times do you talk on the phone with family, friends, or neighbors? Twice a week 07/24/2024 How often do you get together with friends or re latives? Once a week 07/24/2024 How often do you attend mormon or taoism serv ices? 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 Home Infusion ([phone]) HH: [facility] Dx: Mycobacterial disease Abx: [...] documented as of this encounter Care Teams Tank Tender Relationship Specialty Start Date End Date Kirt Lindsay DO PCP - General Internal Medicine 02/02/21 Josué Del Valle MD PhD Medical Oncologist/Snaker Tractor Driver Medical Oncology 08/26/19 Cal Carranza DO [address] [place] [address] Installer Helper Internal Medicine 06/12/23 Halie Khan MD [address] [place] [address] Education Teacher Critical Care Med 06/12/23 Wilfred Kinsey MD [address] [address] Consulting Physician Gastroenterology 03/02/24 documented as of this encounter
--- OUTSIDE RECORDS SUMMARY | 2024-11-22 12:48 | XMS_ITS | Encounter Summary ---
Author Organization [facility] Address [address] [place] [address] Phone Care Team Providers Care Matte Cutter Name Role Phone Josué Del Valle MD PhD Unavailable [phone] Kirt Lindsay DO Primary Care Provider [phone] Cal Carranza DO Unavailable [phone] Halie Khan MD Unavailable [phone] Wilfred Kinsey MD Unavailable Encounter Details Date Type Department Care Team (Late st Contact Info) Description 08/04/2024 Telephone [facility] Bone Marrow Transplant [address] [facility] Advanced Medicine 7th Floor, [place] [address] Josué Rice RN Social History Tobacco Use Types Packs/Day Years Used Date Smoking Tobacco: Some Days Cigarettes 0.5 40.4 Started: 1985 Smokeless Tobacco: Never Comments:pt states tried to quit; smoking 5 cigs/wk [facility] Utilities Answer Date Recorded In the past 12 months has [employer] electric, gas, oil, or water company threatened [...] How often do you attend catholic or confucianist serv ices? 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 Contact: Attempted 2 contacts (phone, Phone.comhart message) Current Outpatient Medications Medication Sig Dispense [...] 90 tablet 0 flash glucose scanning reader (Goal ZeroStyle Evaristo 2 [place]) [facility] Use to test blood glucose continuously 1 each 1 flash glucose sensor (FreeStyle Evaristo 2 Sensor) kit Change sensor every 14 days 2 kit 0 owgocpmuiae-aiygfmmhr-xoqhvqet (Trelegy Ellipta) 200-62.5-25 mcg inhaler Inhale 1 puff daily gabapentin (NEURONTIN) 300 mg capsule TAKE ONE CAPSULE BY MOUTH FOUR TIMES DAILY @ 9LO-0TN-5TD-9PM 120 capsule 11 guaiFENesin ER (MUCINEX) 600 [...] documented as of this encounter Care Teams Matte Cutter Relationship Specialty Start Date End Date Kirt Lindsay DO PCP - General Internal Medicine 02/02/21 Josué Del Valle MD PhD Medical Oncologist/Nike Athlete Medical Oncology 08/26/19 Cal Carranza DO [address] [place] [address] Costume Draper Internal Medicine 06/12/23 Halie Khan MD [address] [place] [address] Preschool Substitute Teacher Critical Care Med 06/12/23 Wilfred Kinsey MD [address] [facility] [address] [address] Consulting Physician Gastroenterology 03/02/24 documented as of this encounter
--- OUTSIDE RECORDS SUMMARY | 2024-11-22 12:48 | XMS_ITS | Encounter Summary ---
Author Organization [facility] Address [address] [facility] [address] [place] [address] Phone Care Team Providers Care Die Designer Apprentice Name Role Phone Josué Del Valle MD PhD Unavailable [phone] Kirt Lindsay DO Primary Care Provider [phone] Cal Carranza DO Unavailable [phone] Halie Khan MD Unavailable [phone] Wilfred Kinsey MD Unavailable Encounter Details Date Type Department Care Team (Late st Contact Info) Description 08/12/2024 Telephone [facility] Scheduling [address] [place] [address] Irina Conrad Social History Tobacco Use Types Packs/Day Years Used Date Smoking Tobacco: Some Days Cigarettes 0.5 40.4 Started: 1985 Smokeless Tobacco: Never Comments:pt states tried to quit; smoking 5 cigs/wk [facility] Utilities Answer Date Recorded [...] week 07/24/2024 How often do you attend worship or sabianism serv ices? Never 07/24/2024 Do you belong to any clubs o r organizations such as worship groups, unions, fraternal or athletic groups, or [...] any time in the past 12 m [facility], were you homeless or living in a prison (including now)? No 07/24/2024 Personal Safety Answer Date Recorded Have you ever been in or are you currently in a harmful physical or emotional relationship or is someone making you feel afraid or unsafe? 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 documented as of this encounter Care Teams Die Designer Apprentice Relationship Specialty Start Date End Date Kirt Lindsay DO PCP - General Internal Medicine 02/02/21 Josué Del Valle MD PhD Medical Oncologist/Inventory Coordinator Medical Oncology 08/26/19 Cal Carranza DO [address] [address] Corset Maker Internal Medicine 06/12/23 Halie Khan MD [address] [facility] [address] [place] [address] Land Use Planner Critical Care Med 06/12/23 Wilfred Kinsey MD 4550 [facility] [address] [id number] Consulting Physician Gastroenterology 03/02/24 documented as of this encounter
--- OUTSIDE RECORDS SUMMARY | 2024-11-22 12:48 | XMS_ITS | Encounter Summary ---
Author Organization [facility] Address [address] [facility] [address] [place] [address] Phone Care Team Providers Care Coke Burner Name Role Phone Josué Del Valle MD PhD Unavailable [phone] Kirt Lindsay DO Primary Care Provider [phone] Cal Carranza DO Unavailable [phone] Halie Khan MD Unavailable [phone] Wilfred Kinsey MD Unavailable Reason for Visit * Reason Onset Date Comments OPAT Sign-Off 08/19/2024 Encounter Details Date Type Department Care Team (Late st Contact Info) Description 08/19/2024 Telephone [facility] Infectious Diseases [address] [place] [address] [address] [place] [address] Kimberly Frazier, ARMEN [facility] [address] [address] [address] [place] [address] OPAT Sign-Off Social History Tobacco Use Types Packs/Day Years Used Date Smoking Tobacco: Some Days Cigarettes 0.5 40.4 Started: 1985 Smokeless Tobacco: Never Comments:pt states tried to quit; smoking 5 cigs/wk [facility] Utilities Answer Date Recorded In [...] week 07/24/2024 How often do you attend muslim or anabaptism serv ices? 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 Gender Identity Not on file [...] documented as of this encounter Care Teams Coke Burner Relationship Specialty Start Date End Date Kirt Lindsay DO PCP - General Internal Medicine 02/02/21 Josué Del Valle MD PhD Medical Oncologist/Transaction Advisory Services Manager Medical Oncology 08/26/19 Cal Carranza DO [address] [id number] Emergency Service Restorer Internal Medicine 06/12/23 Halie Khan MD [address] [id number] Supervisor Shipfitters Critical Care Med 06/12/23 Wilfred Kinsey MD [address] [address] Consulting Physician Gastroenterology 03/02/24 documented as of this encounter
--- OUTSIDE RECORDS SUMMARY | 2024-11-22 12:48 | XMS_ITS | Encounter Summary ---
Author Organization [facility] Address [address] [place] [address] Phone Care Team Providers Care Basket Assembler Name Role Phone Josué Del Valle MD PhD Unavailable [phone] Kirt Lindsay DO Primary Care Provider [phone] Cal Carranza DO Unavailable [phone] Halie Khan MD Unavailable [phone] Wilfred Kinsey MD Unavailable Encounter Details Date Type Department Care Team (Late st Contact Info) Description 08/19/2024 Telephone [facility] Bone Marrow Transplant [address] [facility] Advanced Medicine 7th Floor, [place] [address] Josué Del Valle MD PhD [address] DIV IM BONE MARROW TRANSPLANT, [address] [place] [address] Social History Tobacco Use Types Packs/Day Years Used Date Smoking Tobacco: Some Days Cigarettes 0.5 40.4 Started: 1985 Smokeless Tobacco: Never Comments:pt states tried to quit; smoking 5 cigs/wk [facility] Utilities Answer Date Recorded In [...] How often do you attend anabaptism or mu-ism serv ices? 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 Gender Identity Not on file Sexual [...] documented as of this encounter Care Teams Basket Assembler Relationship Specialty Start Date End Date Kirt Lindsya DO PCP - General Internal Medicine 02/02/21 Josué Del Valle MD PhD Medical Oncologist/Loft Worker Medical Oncology 08/26/19 Cal Carranza DO [address] [phone] Crown Ironer Operator Internal Medicine 06/12/23 Halie Khan MD [address] [phone] Professor Of Theater Critical Care Med 06/12/23 Wilfred Kinsey MD [address] [address] Consulting Physician Gastroenterology 03/02/24 documented as of this encounter
--- OUTSIDE RECORDS SUMMARY | 2024-11-22 12:48 | XMS_ITS | Encounter Summary ---
Author Organization [facility] Address [address] [facility] [address] [place] [address] Phone Care Team Providers Care Specialty Molder Name Role Phone Josué Del Valle MD PhD Unavailable [phone] Kirt Lindsay DO Primary Care Provider [phone] Cal Carranza DO Unavailable [phone] Halie Khan MD Unavailable [phone] Wilfred Kinsey MD Unavailable Encounter Details Date Type Department Care Team (Late st Contact Info) Description 08/13/2024 Telephone [facility] Infectious Diseases [address] [place] [address] Page Marsh Social History Tobacco Use Types Packs/Day Years Used Date Smoking Tobacco: Some Days Cigarettes 0.5 40.4 Started: 1985 Smokeless Tobacco: Never Comments:pt states tried to quit; smoking 5 cigs/wk [facility] Utilities Answer Date Recorded In the past 12 months has [employer] electric, gas, oil, or water company [...] How often do you attend gnosticism or zoroastrianism serv ices? 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 Gender Identity Not on file Sexual Orientation [...] Labs ----- Message ----- From: Birgit Waldron [facility] Sent: 08/12/2024 4:07 PM CDT To: [...] documented as of this encounter Care Teams Specialty Molder Relationship Specialty Start Date End Date Kirt Lindsay DO PCP - General Internal Medicine 02/02/21 Josué Del Valle MD PhD Medical Oncologist/Restaurant Manager Medical Oncology 08/26/19 Cal Carranza DO [address] [address] Business Law Professor Internal Medicine 06/12/23 Halie Khan MD [address] [address] Carbonizer Tester Critical Care Med 06/12/23 Wilfred Kinsey MD [address] [address] Consulting Physician Gastroenterology 03/02/24 documented as of this encounter
--- OUTSIDE RECORDS SUMMARY | 2024-11-22 12:48 | XMS_ITS | Encounter Summary ---
Author Organization [facility] Address [address] [facility] [address] [place] [address] Phone Care Team Providers Care River Boat Captain Name Role Phone Josué Del Valle MD PhD Unavailable Kirt Lindsay DO Primary Care Provider [phone] Cal Carranza DO Unavailable [phone] Halie Khan MD Unavailable [phone] Wilfred Kinsey MD Unavailable Reason for Visit * Reason Onset Date Comments OPAT Sign-Off 08/17/2024 Encounter Details Date Type Department Care Team (Late st Contact Info) Description 08/17/2024 Telephone [facility] Infectious Diseases [address] [place] [address] [address] [place] [address] Page Marsh OPAT Sign-Off Social History Tobacco Use Types Packs/Day Years Used Date Smoking Tobacco: Some Days Cigarettes 0.5 40.4 Started: 1985 Smokeless Tobacco: Never Comments:pt states tried to quit; smoking 5 cigs/wk [facility] Utilities Answer Date Recorded In the past 12 months has [employer], gas, oil, or water company threatened to [...] week 07/24/2024 How often do you attend shinto or oriental orthodox serv ices? 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 Home Infusion ([phone]) HH: Justin Dx: Mycobacterial disease Abx: Amikacin [...] in abx plan -08/13 labs received from [facility] and sent to Dr Pinzon, will hold amikacin. Requested serum lactate level. [facility] is aware and has sent [...] documented as of this encounter Care Teams River Boat Captain Relationship Specialty Start Date End Date Kirt Lindsay DO PCP - General Internal Medicine 02/02/21 Josué Del Valle MD PhD Medical Oncologist/Truck Operator Medical Oncology 08/26/19 Cal Carranza DO [address] [facility] [address] [place] [address] Manager Graphic Internal Medicine 06/12/23 Halie Khan MD [address] [place], [place] [phone] Hydraulic Press In Operator Critical Care Med 06/12/23 Wilfred Kinsey MD [address] [facility] [address] [address] Consulting Physician Gastroenterology 03/02/24 documented as of this encounter
--- OUTSIDE RECORDS SUMMARY | 2024-11-22 12:48 | XMS_ITS | Encounter Summary ---
Author Organization [facility] Address [address] [facility] [address] [place] [address] Phone Care Team Providers Care Division Sales Manager Name Role Phone Josué Del Valle MD PhD Unavailable [phone] Kirt Lindsay DO Primary Care Provider [phone] Cal Carranza DO Unavailable [phone] Halie Khan MD Unavailable [phone] Wilfred Kinsey MD Unavailable Encounter Details Date Type Department Care Team (Late st Contact Info) Description 08/13/2024 Telephone [facility] Infectious Diseases [address] [place] [address] Page Marsh Social History Tobacco Use Types Packs/Day Years Used Date Smoking Tobacco: Some Days Cigarettes 0.5 40.4 Started: 1985 Smokeless Tobacco: Never Comments:pt states tried to quit; smoking 5 cigs/wk [facility] Utilities Answer Date Recorded In the past 12 months has [employer] electric, gas, oil, or water company threatened [...] How often do you attend mu-ism or congregational serv ices? Never 07/24/2024 Do [...] any time in the past 12 m [facility], were you homeless or living in a penitentiary (including now)? No 07/24/2024 Personal Safety Answer Date Recorded Have you ever been in or are you currently in a harmful physical or emotional relationship or is someone making you feel afraid or unsafe? 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 Gender Identity Not on file Sexual [...] documented as of this encounter Care Teams Division Sales Manager Relationship Specialty Start Date End Date Kirt Lindsay DO PCP - General Internal Medicine 02/02/21 Josué Del Valle MD PhD Medical Oncologist/Spanish Interpreter Medical Oncology 08/26/19 Cal Carranza DO [address] [facility] [address] [place], [place] [phone] Office Machine Embossograph Operator Internal Medicine 06/12/23 Halie Khan MD [address] [facility] [address] [place] [address] Conditioner Tumbler Critical Care Med 06/12/23 Wilfred Kinsey MD [address] [address] Consulting Physician Gastroenterology 03/02/24 documented as of this encounter
--- OUTSIDE RECORDS SUMMARY | 2024-11-22 12:48 | XMS_ITS | Encounter Summary ---
Author Organization [facility] Address [address] [place] [address] Care Team Providers Care Department Store Manager Name Role Phone Josué Del Valle MD PhD Unavailable [phone] Kirt Lindsay DO Primary Care Provider [phone] Cal Carranza DO Unavailable [phone] Halie Khan MD Unavailable [phone] Wilfred Kinsey MD Unavailable Encounter Details Date Type Department Care Team (Late st Contact Info) Description 08/11/2024 Orders Only [facility] Home Care Services [address] [place] [address] Birgit Waldron, [facility] Social History Tobacco Use Types Packs/Day Years Used Date Smoking Tobacco: Some Days Cigarettes 0.5 40.4 Started: 1984 Smokeless Tobacco: Never Comments:pt states tried to quit; smoking 5 cigs/wk [facility] Utilities Answer Date Recorded In the [...] week 07/24/2024 How often do you attend denominational or spiritism serv ices? 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 1 SNV every week for [...] documented as of this encounter Care Teams Department Store Manager Relationship Specialty Start Date End Date Kirt Lindsay DO PCP - General Internal Medicine 02/02/21 Josué Del Valle MD PhD Medical Oncologist/System Support Technician Medical Oncology 08/26/19 Cal Carranza DO [address] [place] [address] Electrical Solderer Internal Medicine 06/12/23 Halie Khan MD [address] [place], [place] [phone] Tape Keller Operator Critical Care Med 06/12/23 Wilfred Kinsey MD [address] [address] Consulting Physician Gastroenterology 03/02/24 documented as of this encounter
--- OUTSIDE RECORDS SUMMARY | 2024-11-22 12:48 | XMS_ITS | Encounter Summary ---
Author Organization [facility] Address [address] [facility] [address] [place] [address] Phone Care Team Providers Care Plastics Fabricator Or Welder Name Role Phone Josué Del Valle MD PhD Unavailable Kirt Lindsay DO Primary Care Provider [phone] Cal Carranza DO Unavailable [phone] Halie Khan MD Unavailable [phone] Wiflred Kinsey MD Unavailable Encounter Details Date Type Department Care Team (Late st Contact Info) Description 08/11/2024 Telephone [facility] Infectious Diseases [address] [place] [address] Page Marsh Social History Tobacco Use Types Packs/Day Years Used Date Smoking Tobacco: Some Days Cigarettes 0.5 40.4 Started: 1985 Smokeless Tobacco: Never Comments:pt states tried to quit; smoking 5 cigs/wk [facility] Utilities Answer Date Recorded In the past 12 months has [employer] electric, gas, oil, or water company threatened [...] week 07/24/2024 How often do you attend voodoo or sabianism serv ices? 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 Gender Identity Not on file Sexual Orientation [...] documented as of this encounter Care Teams Plastics Fabricator Or Welder Relationship Specialty Start Date End Date Kirt Lindsay DO PCP - General Internal Medicine 02/02/21 Jsoué Del Valle MD PhD Medical Oncologist/Business Relations Manager Medical Oncology 08/26/19 Cal Carranza DO [address] [facility] [address] [place], [place] [phone] Shotgun Shell Reprinting Unit Operator Internal Medicine 06/12/23 Halie Khan MD [address] [facility] [address] [place], [place] [phone] Clinic Lpn Critical Care Med 06/12/23 Wilfred Kinsey MD [address] [address] Consulting Physician Gastroenterology 03/02/24 documented as of this encounter
--- OUTSIDE RECORDS SUMMARY | 2024-11-22 12:48 | XMS_ITS | Encounter Summary ---
Author Organization [facility] Address [address] [facility] [address] [place] [address] Phone Care Team Providers Care Speed Belt Sander Name Role Phone Josué Del Valle MD PhD Unavailable [phone] Kirt Lindsay DO Primary Care Provider [phone] Cal Carranza DO Unavailable [phone] Halie Khan MD Unavailable [phone] Wilfred Kinsey MD Unavailable Reason for Visit * Reason Onset Date Comments OPAT Sign-Off 08/13/2024 Encounter Details Date Type Department Care Team (Late st Contact Info) Description 08/13/2024 Telephone [facility] Infectious Diseases [address] [place] [address] [address] [place] [address] Page Marsh OPAT Sign-Off Social History Tobacco Use Types Packs/Day Years Used Date Smoking Tobacco: Some Days Cigarettes 0.5 40.4 Started: 1985 Smokeless Tobacco: Never Comments:pt states tried to quit; smoking 5 cigs/wk [facility] Utilities Answer Date Recorded In the past 12 months has [employer], gas, oil, or water company threatened to [...] How often do you attend tenriism or christian serv ices? Never 07/24/2024 Do you belong [...] any time in the past 12 m [facility], were you homeless or living in a fci (including now)? No 07/24/2024 Personal Safety Answer Date Recorded Have you ever been in or are you currently in a harmful physical or emotional relationship or is someone making you feel afraid or unsafe? 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 Requested serum lactate level. 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
--- OUTSIDE RECORDS SUMMARY | 2024-11-22 12:48 | XMS_ITS | Encounter Summary ---
Author Organization [facility] Healthcare Address [address] [place] [address] Care Team Providers Care Design Project Manager Name Role Phone Josué Del Valle MD PhD Unavailable Kirt Lindsay DO Primary Care Provider [phone] Cal Carranza DO Unavailable [phone] Halie Khan MD Unavailable [phone] Wilfred Kinsey MD Unavailable Encounter Details Date Type Department Care Team (Latest Contact Info) Description 08/18/2024 10:57 AM CDT - 08/18/2024 11:59 PM CDT Hospital Encounter [address] [address] AML s/p Allo SCT in 2009 Discharge Disposition: Discharge to home or self care Social History Tobacco Use Types Packs/Day Years Used Date Smoking Tobacco: Some Days Cigarettes 0.5 40.4 Started: 1985 Smokeless Tobacco: Never Comments:pt states tried to quit; smoking 5 cigs/wk [facility] Utilities Answer Date Recorded In the past 12 months has [employer], gas, oil, or water company threatened to [...] week 07/24/2024 How often do you attend latter day or cheondoism serv ices? 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 Gender Identity Not on file Sexual [...] hyperglycemia, with long-term current use of insulin (HCC),Bghnj-obvdpn-ubof disease (HCC),H/O allogeneic bone marrow transplant (HCC),Pure [...] flash glucose scanning reader (FreeStyle Evaristo 2 [place]) [facility] Use to test blood glucose continuously 1 each 1 03/17/20 23 flash glucose sensor (FreeStyle Evaristo 2 Sensor) kitIndications:Type 2 diabetes mellitus with hyperosmolarity without coma, with long-term current use of insulin ([facility]) Change sensor every 14 days 2 [...] (three) times a week 07/31/20 24 024 qxmiqrldevf-khllgtmtf-jz lanter (Trelegy Ellipta) 200-62.5-25 mcg inhaler Inhale 1 puff daily 024 gabapentin (NEURONTIN) 300 mg capsuleIndications:Acute myeloblastic leukemia, in remission (HCC) TAKE ONE CAPSULE BY MOUTH FOUR TIMES DAILY @ [id number]-9PM 120 capsule 11 05/13/20 24 025 heparin [...] Organization Address [facility] Co de Phone Number [facility] Department [place] [address] * Glucose, random (Outreach) (08/18/2024 9:46 AM [...] Organization Address [facility] de Phone Number [facility] Department [place] [address] * (ABNORMAL) Comprehensive metabolic panel, without glucose (Outreach) (08/18/2024 9:46 AM CDT) Sodium 140 135 - 145 mmol/L Potassium, pl 4.4 3.3 - 4.9 mmol/L [facility] Chloride 103 97 - 110 mmol/L [facility] CO2 26 22 - 32 mmol/L [facility] Anion gap 11 2 - 15 mmol/L [facility] BUN 11 6 - 25 mg/dL [facility] Creatinine 0.78(L) 0.80 - 1.30 mg/dL [facility] Calcium 9.2 8.5 - 10.3 mg/dL [facility] Protein, pl 7.0 6.5 - 8.5 g/dL [facility] Albumin 3.1(L) 3.5 - 5.0 g/dL [facility] Bilirubin, total 0.2 0.1 - 1.2 mg/dL [facility] Alk phos 192(H) 40 - 130 Units/L [facility] AST 32 10 - 50 Units/L [facility] ALT 24 7 - 55 Units/L [facility] Blood 08/18/2024 9:46 AM CDT 08/18/2024 12:29 PM CDT Josué Del Valle MD PhD LAB BLOOD ORDERABLES Fin al Result [facility] Department [place] [address] documented in this encounter Visit Diagnoses Diagnosis AML s/p Allo SCT in 2008 documented in this encounter Additional Health Concerns Infection Onset Date 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 documented as of this encounter Care Teams Design Project Manager Relationship Specialty Start Date End Date Kirt Lindsay DO PCP - General Internal Medicine 02/02/21 Josué Del Valle MD PhD Medical Oncologist/Boat Hop Medical Oncology 08/26/19 Cal Carranza DO [address] [place] [address] Russian Rubber Internal Medicine 06/12/23 Halie Khan MD [address] [place] [address] Patient Scheduling Coordinator Critical Care Med 06/12/23 Wilfred Kinsey MD [address] [place] [id number] Consulting Physician Gastroenterology 03/02/24 documented as of this encounter
--- OUTSIDE RECORDS SUMMARY | 2024-11-22 12:49 | XMS_ITS | Encounter Summary ---
Author Organization [facility] Address [address] [place] [address] Phone Care Team Providers Care Rope Coiling Machine Operator Name Role Phone Josué Del Valle MD PhD Unavailable [phone] Kirt Lindsay DO Primary Care Provider [phone] Cal Carranza DO Unavailable [phone] Halie Khan MD Unavailable [phone] Wilfred Kinsey MD Unavailable Encounter Details Date Type Department Care Team (Late st Contact Info) Description 07/15/2024 Telephone [facility] Infectious Diseases [address] [place] [phone] Justine Raygoza BS Social History Tobacco Use Types Packs/Day Years Used Date Smoking Tobacco: Some Days Cigarettes 0.5 40.4 Started: 1985 Smokeless Tobacco: Never Comments:pt states tried to quit; smoking 5 cigs/wk [facility] Utilities Answer Date Recorded In the past 12 months has th [employer] electric, gas, oil, or water company threatened [...] week 07/15/2024 How often do you attend islam or episcopal serv ices? Never 07/15/2024 Do you belong [...] living in a jail (including now)? No 07/15/2024 Personal Safety Answer Date Recorded Have you ever been in or are you currently in a harmful physical or emotional relationship or is someone making you feel afraid or unsafe? 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 documented as of this encounter Care Teams Rope Coiling Machine Operator Relationship Specialty Start Date End Date Kirt Lindsay DO PCP - General Internal Medicine 02/02/21 Josué Del Valle MD PhD Medical Oncologist/Municipal Bond Trader Medical Oncology 08/26/19 Dillon Calreed Dorado DO [address] [address] Aerotriangulation Specialist Internal Medicine 06/12/23 Halie Khan MD [address] [address] Corn Sheller Operator Critical Care Med 06/12/23 Wilfred Kinsey MD [address] [address] Consulting Physician Gastroenterology 03/02/24 documented as of this encounter
--- OUTSIDE RECORDS SUMMARY | 2024-11-22 12:49 | XMS_ITS | Encounter Summary ---
Author Organization [facility] Address [address] [facility] [address] [place] [address] Phone Care Team Providers Care Interlocking Machine Operator Name Role Phone Josué Del Valle MD PhD Unavailable [phone] Kirt Lindsay DO Primary Care Provider [phone] Cal Carranza DO Unavailable [phone] Halie Khan MD Unavailable [phone] Wilfred Kinsey MD Unavailable Encounter Details Date Type Department Care Team (Late st Contact Info) Description 07/31/2024 Telephone [facility] Infectious Diseases [address] [place] [phone] Lenka Baez, [facility] Social History Tobacco Use Types Packs/Day Years Used Date Smoking Tobacco: Some Days Cigarettes 0.5 40.4 Started: 1985 Smokeless Tobacco: Never Comments:pt states tried to quit; smoking 5 cigs/wk [facility] Utilities Answer Date Recorded In the past 12 months has [employer] electric, gas, oil, or water company threatened [...] week 07/24/2024 How often do you attend yarsanism or anabaptist serv ices? 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 The contact number is [phone]. 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 documented as of this encounter Care Teams Interlocking Machine Operator Relationship Specialty Start Date End Date Kirt Lindsay DO PCP - General Internal Medicine 02/02/21 Josué Del Valle MD PhD Medical Oncologist/Paper Folding Machine Operator Medical Oncology 08/26/19 Cal Carranza DO [address] [place] [address] Template Clerk Internal Medicine 06/12/23 Halie Khan MD [address] [address] Bus And Rail Operator Critical Care Med 06/12/23 Wilfred Kinsey MD [address] [address] Consulting Physician Gastroenterology 03/02/24 documented as of this encounter
--- OUTSIDE RECORDS SUMMARY | 2024-11-22 12:49 | XMS_ITS | Encounter Summary ---
Author Organization [facility] Address [address] [facility] [address] [place] [address] Phone Care Team Providers Care Supervisor Product Inspection Name Role Phone Josué Del Valle MD PhD Unavailable [phone] Kirt Lindsay DO Primary Care Provider [phone] Cal Carranza DO Unavailable [phone] Halie Khan MD Unavailable [phone] Wilfred Kinsey MD Unavailable Encounter Details Date Type Department Care Team (Late st Contact Info) Description 07/14/2024 Telephone [facility] Infectious Diseases [address] [place] [phone] Page Marsh Social History Tobacco Use Types Packs/Day Years Used Date Smoking Tobacco: Some Days Cigarettes 0.5 40.4 Started: 1985 Smokeless Tobacco: Never Comments:pt states tried to quit [facility] Utilities Answer Date [...] week 07/15/2024 How often do you attend faith or restoration serv ices? Never 07/15/2024 Do you belong [...] any time in the past 12 m [facility], were you homeless or living in a longterm (including now)? No 07/15/2024 Personal Safety Answer Date Recorded Have you ever been in or are you currently in a harmful physical or emotional relationship or is someone making you feel afraid or unsafe? 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 documented as of this encounter Care Teams Supervisor Product Inspection Relationship Specialty Start Date End Date Kirt Lindsay DO PCP - General Internal Medicine 02/02/21 Josué Del Valle MD PhD Medical Oncologist/Paper Cone Machine Operator Medical Oncology 08/26/19 Cal Carranza DO [address] [address] Manager Gift Internal Medicine 06/12/23 Halie Khan MD [address] [facility] [address] [address] Living Manager Critical Care Med 06/12/23 Wilfred Kinsey MD [address] [address] Consulting Physician Gastroenterology 03/02/24 documented as of this encounter
--- OUTSIDE RECORDS SUMMARY | 2024-11-22 12:49 | XMS_ITS | Encounter Summary ---
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 [...] fat ? muscle ? fluid/edema 6: Reduced Mattress Packer Strength n/a Measurably reduced per device standards [...] for the Shift: NPO, IVF, pain control Intermediate Patient Centered Goal for Treatment: d/c home Summary: Patient alert and oriented and resting comfortably in bed. Patient afebrile and on 3L NC. Patient up independently. Lovenox for VTE. Patient complains of pain. Medication given. Problem: Discharge Planning Goal: Understanding discharge needs will improve Outcome: Progressing Flowsheets (Taken 07/17/2024 0573) Understanding of discharge needs will improve: Discuss [...] for the Shift: NPO, IVF, pain control Intermediate Patient Centered Goal for Treatment: d/c home [...] arranged?: No (07/15/24 1429) Health Insurance Coverage: [facility] Prescription Coverage: yes Pharmacy: [id number] - [place], [place] - [address] [place] [id number] [facility] [place] - [facility] [place] - [address] [facility] [address] [facility] [place] Primary Care Provider: Kirt Lindsay DO Prior to Admission: Functional Status: Moderate assist with ADLs Primary Caregiver: Private caregiver Support System: Other (Comment) (tyler/ long term acute care registered nurse) Home Care Services: No Outpatient Services: No Durable Medical Equipment: Nebulizer, Oxygen, Shower chair Oxygen Detail: danish home Living Arrangements: Friends Type of Residence: [...] a week How often do you attend scientologist or zoroastrian services?: Never Do you belong to any clubs or organizations such as scientologist groups, unions, fraternal or athletic groups, or [...] for the Shift: NPO, IVF, pain control Intermediate Patient Centered Goal for Treatment: d/c home [...] * POCT glucose (07/17/2024 11:25 AM CDT) [facility] Glucose, POC 182 70 - 199 mg/dL Glucose comment 1 Use This Result [facility] Glucose comment 2 RN/MD Notified [facility] Blood 07/17/2024 11:2 5 AM CDT 07/17/2024 11:25 AM CDT Michael Mckeon MD LAB POCT ORDERABLES - D EVICE Final Result [place] [id number] [facility] [place] [address] * IgE (07/17/2024 10:36 AM CDT) [facility] IgE 3 <=100 IUnits/mL Blood 07/17/2024 10:3 6 AM CDT 07/17/2024 10:49 AM CDT us Brenda Callahan MD LAB BLOOD ORDERABLES Final Result [place] [id number] [facility] [place] [address] * POCT glucose (07/17/2024 7:27 AM CDT) Glucose, POC 113 70 - 199 mg/dL Glucose comment 1 Use This Result [facility] Glucose comment 2 RN/MD Notified [facility] Blood 07/17/2024 7:27 AM CDT 07/17/2024 7:27 AM CDT us Michael Mckeon MD LAB POCT ORDERABLES - D EVICE Final Result [facility] [address] [facility] [place] [address] * XR Chest 1 View (07/17/2024 5:51 [...] D: ??07/17/2024 6:56 AM T: Report ID: [id number] Reading Location: [id number] Procedure Note Aron Mock, DO - 07/17/2024 [...] Aron Mock D.O. PS T: Report ID: [id number] Reading Location: [id number] us Brenda Callahan MD IMG XR PROCEDURES Final Res ult * eGFR (07/17/2024 5:38 AM CDT) Pathologist [facility] eGFR >90 >=60 mL/min/1. 73 m2 [...] MD LAB BLOOD ORDERABLES Fi nal Result [facility] [address] [facility] Department [place] [address] * Differential, auto (07/17/2024 5:38 AM CDT) Pathologist [facility] Neutrophil abs 5.1 1.5 - 6.5 K/cumm Imm gran abs 0.0 0.0 - 0.1 K/cumm [facility] Lymphocyte abs 2.4 0.8 - 3.3 K/cumm [facility] Monocyte abs 0.8 0.2 - 0.8 K/cumm [facility] Eosinophil abs 0.1 0.0 - 0.5 K/cumm [facility] Basophil abs 0.0 0.0 - 0.1 K/cumm [facility] Neutrophil pct 60.8 % [facility] Comment: Interpretive Data Percent cell count reference ranges are not reported, since discordance with absolute values may lead to misinterpretation of CBC data. Current Interpretive Data was last revised on 2018. Imm gran pct 0.4 % [facility] Comment: Interpretive Data Percent cell count reference ranges are not reported, since discordance with absolute values may lead to misinterpretation of CBC data. Current Interpretive Data was last revised on 2018. Lymphocyte pct 28.4 % [facility] Comment: Interpretive Data Percent cell count reference ranges are not reported, since discordance with absolute values may lead to misinterpretation of CBC data. Current Interpretive Data was last revised on 2018. Monocyte pct 9.1 % [facility] Comment: Interpretive Data Percent cell count reference ranges are not reported, since discordance with absolute values may lead to misinterpretation of CBC data. Current Interpretive Data was last revised on 2018. Eosinophil pct 1.1 % [facility] Comment: Interpretive Data Percent cell count reference ranges are not reported, since discordance with absolute values may lead to misinterpretation of CBC data. Current Interpretive Data was last revised on 2018. Basophil pct 0.2 % [facility] Comment: Interpretive Data Percent cell count reference ranges are not reported, since discordance with absolute values may lead to misinterpretation of CBC data. Current Interpretive Data was last revised on 2018. Blood 07/17/2024 5:38 AM CDT 07/17/2024 6:19 AM CDT us Michael Mckeon MD LAB BLOOD ORDERABLES Fi nal Result [facility] [address] [facility] [place] [address] * (ABNORMAL) Erythrocyte sedimentation rate (07/17/2024 5:38 AM CDT) [facility] Erythrocyte sedimentation rate 115(H) 1 - 20 mm/hr Comment:Testing performed by : [facility], [address] [place] [address]., [id number] Blood 07/17/2024 5:38 AM CDT 07/17/2024 6:19 AM CDT us Brenda Callahan MD LAB BLOOD ORDERABLES Final Result [facility] [address] [facility] [place] [address] * (ABNORMAL) Pro B-type natriuretic peptide (07/17/2024 5:38 AM CDT) [facility] NT-proBNP 14,955(H) <=300 pg/mL Comment: Interpretive [...] BLOOD ORDERABLES Final Result Performing Organization Address [facility] de Phone Number LES[address] [place] [address] * (ABNORMAL) Lipase (07/17/2024 5:38 AM CDT) Lipase 103(H) 10 - 99 Units/L Blood 07/17/2024 5:38 AM CDT 07/17/2024 6:03 AM CDT us Michael Mckeon MD LAB BLOOD ORDERABLES Fi nal Result Performing Organization Address [facility] Co de Phone Number [address] [place] [address] * Magnesium (07/17/2024 5:38 AM CDT) Magnesium 1.5 1.4 - 2.5 mg/dL Blood 07/17/2024 5:38 AM CDT 07/17/2024 6:03 AM CDT Michael Mckeon MD LAB BLOOD ORDERABLES Fi nal Result Performing Organization Address [facility] Co de Phone Number [address] [address] * (ABNORMAL) Basic metabolic panel (07/17/2024 5:38 AM CDT) Pathologist [facility] Sodium 136 135 - 145 mmol/L Potassium, pl 3.6 3.3 - 4.9 mmol/L [facility] Chloride 99 97 - 110 mmol/L [facility] CO2 30 22 - 32 mmol/L [facility] Anion gap 7 2 - 15 mmol/L [facility] BUN 8 6 - 25 mg/dL [facility] Creatinine 0.77(L) 0.80 - 1.30 mg/dL [facility] Glucose 113 70 - 199 mg/dL [facility] Comment: Interpretive Data Fasting glucose [...] 2022. Calcium 8.2(L) 8.5 - 10.3 mg/dL [facility] Blood 07/17/2024 5:38 AM CDT 07/17/2024 6:03 AM CDT Michael Mckeon MD LAB BLOOD ORDERABLES Fi nal Result Performing Organization Address [facility] Co de Phone Number [address] [address] * (ABNORMAL) Hepatic function panel (07/17/2024 5:38 AM CDT) [facility] Bilirubin, total 0.2 0.1 - 1.2 mg/dL Bilirubin, direct <0.2 0.1 - 0.3 mg/dL [facility] Protein, pl 6.6 6.5 - 8.5 g/dL [facility] Albumin 3.0(L) 3.5 - 5.0 g/dL [facility] Alk phos 170(H) 40 - 130 Units/L [facility] ALT 6(L) 7 - 55 Units/L [facility] AST 23 10 - 50 Units/L [facility] Blood 07/17/2024 5:38 AM CDT 07/17/2024 6:03 AM CDT us Michael Mckeon MD LAB BLOOD ORDERABLES Fi nal Result [facility] [address] [facility] [place] [address] * (ABNORMAL) CBC with auto differential (07/17/2024 5:38 AM CDT) [facility] WBC 8.4 3.8 - 9.9 K/cumm Hgb 9.1(L) 13.0 - 17.5 g/dL [facility] Hct 27.7(L) 38.9 - 50.3 % [facility] Plt 364 150 - 400 K/cumm [facility] MPV 10.4 9.1 - 12.3 fL [facility] RBC 2.75(L) 4.30 - 5.80 M/cumm [facility] MCV 100.7(H) 81.3 - 96.4 fL [facility] MCH 33.1 27.1 - 33.3 pg [facility] MCHC 32.9 32.3 - 35.7 g/dL [facility] RDW CV 16.5(H) 11.1 - 14.9 % [facility] RDW SD 59.5(H) 35.7 - 48.1 fL [facility] NRBC abs 0.03(H) 0.00 - 0.01 K/cumm [facility] Blood 07/17/2024 5:38 AM CDT 07/17/2024 6:19 AM CDT Michael Mckeon MD LAB BLOOD ORDERABLES Fi nal Result Performing Organization Address City/[facility] Co de Phone Number ZULE[facility] [address] [place] [address] * POCT glucose (07/17/2024 4:42 AM CDT) Glucose, POC 110 70 - 199 mg/dL Glucose comment 1 Use This Result [facility] Blood 07/17/2024 4:42 AM CDT 07/17/2024 4:42 AM CDT Michael Mckeon MD LAB POCT ORDERABLES - D EVICE Final Result Performing Organization Address [facility] Co de Phone Number [facility] [address] [place] [address] * POCT glucose (07/17/2024 12:41 AM CDT) Glucose, POC 144 70 - 199 mg/dL Glucose comment 1 Use This Result [facility] Blood 07/17/2024 12:4 1 AM CDT 07/17/2024 12:41 AM CDT Michael Mckeon MD LAB POCT ORDERABLES - D EVICE Final Result Performing Organization Address City/[facility] Co de Phone Number Z[facility] [address] [place] [address] * POCT glucose (07/16/2024 8:02 PM CDT) Glucose, POC 138 70 - 199 mg/dL Blood 07/16/2024 8:02 PM CDT 07/16/2024 8:02 PM CDT Michael Mckeon MD LAB POCT ORDERABLES - D EVICE Final Result Performing Organization Address City/[facility]/ZIP Co de Phone Number ZULE[facility] [address] [address] * POCT glucose (07/16/2024 4:20 PM CDT) Glucose, POC 142 70 - 199 mg/dL Glucose comment 1 Use This Result [facility] Glucose comment 2 RN/MD Notified [facility] Blood 07/16/2024 4:20 PM CDT 07/16/2024 4:20 PM CDT us Michael Mckeon MD LAB POCT ORDERABLES - D EVICE Final Result Performing Organization Address [facility] Co de Phone Number ZULE[place] [address] [address] * POCT glucose (07/16/2024 11:11 AM CDT) Glucose, POC 131 70 - 199 mg/dL Glucose comment 1 Use This Result [facility] Glucose comment 2 RN/MD Notified [facility] Blood 07/16/2024 11:1 1 AM CDT 07/16/2024 11:11 AM CDT us Michael Mckeon MD LAB POCT ORDERABLES - D EVICE Final Result Performing Organization Address [facility] Co de Phone Number LESL[address] [address] * POCT glucose (07/16/2024 7:47 AM CDT) Glucose, POC 86 70 - 199 mg/dL Glucose comment 1 RN/MD Notified [facility] Glucose comment 2 Use This Result [facility] Blood 07/16/2024 7:47 AM CDT 07/16/2024 7:47 AM CDT us Michael Mckeon MD LAB POCT ORDERABLES - D EVICE Final Result Performing Organization Address City/[facility]/ZIP Co de Phone Number [facility] [address] [facility] [place] [address] * eGFR (07/16/2024 6:53 AM CDT) [facility] eGFR >90 >=60 mL/min/1. 73 m2 [...] LAB BLOOD ORDERABLES Fi nal Result [facility] [address] [facility] [place] [address] * (ABNORMAL) Differential, auto (07/16/2024 6:53 AM CDT) [facility] Neutrophil abs 10.3(H) 1.5 - 6.5 K/cumm Imm gran abs 0.1 0.0 - 0.1 K/cumm [facility] Lymphocyte abs 3.5(H) 0.8 - 3.3 K/cumm [facility] Monocyte abs 1.2(H) 0.2 - 0.8 K/cumm [facility] Eosinophil abs 0.2 0.0 - 0.5 K/cumm [facility] Basophil abs 0.1 0.0 - 0.1 K/cumm [facility] Neutrophil pct 67.1 % [facility] Comment: Interpretive Data Percent cell count reference ranges are not reported, since discordance with absolute values may lead to misinterpretation of CBC data. Current Interpretive Data was last revised on 2018. Imm gran pct 0.5 % [facility] Comment: Interpretive Data Percent cell count reference ranges are not reported, since discordance with absolute values may lead to misinterpretation of CBC data. Current Interpretive Data was last revised on 2018. Lymphocyte pct 23.0 % [facility] Comment: Interpretive Data Percent cell count reference ranges are not reported, since discordance with absolute values may lead to misinterpretation of CBC data. Current Interpretive Data was last revised on 2018. Monocyte pct 7.7 % [facility] Comment: Interpretive Data Percent cell count reference ranges are not reported, since discordance with absolute values may lead to misinterpretation of CBC data. Current Interpretive Data was last revised on 2018. Eosinophil pct 1.3 % [facility] Comment: Interpretive Data Percent cell count reference ranges are not reported, since discordance with absolute values may lead to misinterpretation of CBC data. Current Interpretive Data was last revised on 2018. Basophil pct 0.4 % [facility] Comment: Interpretive Data Percent cell count reference ranges are not reported, since discordance with absolute values may lead to misinterpretation of CBC data. Current Interpretive Data was last revised on 2018. Blood 07/16/2024 6:53 AM CDT 07/16/2024 7:07 AM CDT us Michael Mckeon MD LAB BLOOD ORDERABLES Fi nal Result [address] [address] * (ABNORMAL) Lipase (07/16/2024 6:53 AM CDT) [facility] Lipase 297(H) 10 - 99 Units/L Blood 07/16/2024 6:53 AM CDT 07/16/2024 7:07 AM CDT Michael Mckeon MD LAB BLOOD ORDERABLES Fi nal Result Performing Organization Address City/[facility] Co de Phone Number [address] [place] [address] * Magnesium (07/16/2024 6:53 AM CDT) [facility] Magnesium 1.8 1.4 - 2.5 mg/dL Blood 07/16/2024 6:53 AM CDT 07/16/2024 7:07 AM CDT Michael Mckeon MD LAB BLOOD ORDERABLES Fi nal Result Performing Organization Address [facility] Co de Phone Number [address] [address] * (ABNORMAL) Basic metabolic panel (07/16/2024 6:53 AM CDT) [facility] Sodium 140 135 - 145 mmol/L Potassium, pl 3.9 3.3 - 4.9 mmol/L [facility] Chloride 101 97 - 110 mmol/L [facility] CO2 28 22 - 32 mmol/L [facility] Anion gap 11 2 - 15 mmol/L [facility] BUN 10 6 - 25 mg/dL [facility] Creatinine 0.84 0.80 - 1.30 mg/dL [facility] Glucose 95 70 - 199 mg/dL [facility] Comment: Interpretive Data Fasting glucose [...] 2022. Calcium 8.4(L) 8.5 - 10.3 mg/dL [facility] Blood 07/16/2024 6:53 AM CDT 07/16/2024 7:07 AM CDT Michael Mckeon MD LAB BLOOD ORDERABLES Fi nal Result [address] [place] [address] * (ABNORMAL) Hepatic function panel (07/16/2024 6:53 AM CDT) Pathologist [facility] Bilirubin, total 0.2 0.1 - 1.2 mg/dL Bilirubin, direct <0.2 0.1 - 0.3 mg/dL [facility] Protein, pl 6.3(L) 6.5 - 8.5 g/dL [facility] Albumin 2.7(L) 3.5 - 5.0 g/dL [facility] Alk phos 164(H) 40 - 130 Units/L [facility] ALT <5(L) 7 - 55 Units/L [facility] AST 23 10 - 50 Units/L [facility] Blood 07/16/2024 6:53 AM CDT 07/16/2024 7:07 AM CDT Michael Mckeon MD LAB BLOOD ORDERABLES Fi nal Result [address] [place] [address] * (ABNORMAL) CBC with auto differential (07/16/2024 6:53 AM CDT) Pathologist [facility] WBC 15.3(H) 3.8 - 9.9 K/cumm Hgb 9.2(L) 13.0 - 17.5 g/dL [facility] Hct 28.5(L) 38.9 - 50.3 % [facility] Plt 384 150 - 400 K/cumm [facility] MPV 10.4 9.1 - 12.3 fL [facility] RBC 2.76(L) 4.30 - 5.80 M/cumm [facility] MCV 103.3(H) 81.3 - 96.4 fL [facility] MCH 33.3 27.1 - 33.3 pg [facility] MCHC 32.3 32.3 - 35.7 g/dL [facility] RDW CV 16.3(H) 11.1 - 14.9 % [facility] RDW SD 59.7(H) 35.7 - 48.1 fL [facility] NRBC abs 0.06(H) 0.00 - 0.01 K/cumm [facility] Blood 07/16/2024 6:53 AM CDT 07/16/2024 7:07 AM CDT us Michael Mckeon MD LAB BLOOD ORDERABLES Fi nal Result Performing Organization Address [facility] Co de Phone Number [address] [place] [address] * IgM (07/16/2024 6:53 AM CDT) Pathologist [facility] Immunoglobulin M 125 40 - 230 mg/dL Blood 07/16/2024 6:53 AM CDT 07/16/2024 7:07 AM CDT us Osmar Orta MD LAB BLOOD ORDERABLES Final R esult Performing Organization Address City/[facility] Co de Phone Number [address] [place] [address] * IgG (07/16/2024 6:53 AM CDT) Pathologist [facility] Immunoglobulin G 1,526 700 - 1,600 mg/dL Blood 07/16/2024 6:53 AM CDT 07/16/2024 7:07 AM CDT us Osmar Orta MD LAB BLOOD ORDERABLES Final R esult Performing Organization Address [facility] Co de Phone Number LESL[address] [place] [address] * POCT glucose (07/16/2024 4:28 AM CDT) Glucose, POC 122 70 - 199 mg/dL Blood 07/16/2024 4:28 AM CDT 07/16/2024 4:28 AM CDT us Michael Mckeon MD LAB POCT ORDERABLES - D EVICE Final Result Performing Organization Address [facility] de Phone Number LESL[address] [address] * POCT glucose (07/16/2024 2:57 AM CDT) Glucose, POC 93 70 - 199 mg/dL Blood 07/16/2024 2:57 AM CDT 07/16/2024 2:57 AM CDT us Michael Mckeon MD LAB POCT ORDERABLES - D EVICE Final Result Performing Organization Address [facility] Co de Phone Number LESLIE[address] [address] * POCT glucose (07/16/2024 2:24 AM CDT) Glucose, POC 85 70 - 199 mg/dL Blood 07/16/2024 2:24 AM CDT 07/16/2024 2:24 AM CDT Michael Mckeon MD LAB POCT ORDERABLES - D EVICE Final Result Performing Organization Address City/[facility]/ZIP Co de Phone Number ZULEMA [address] [address] * POCT glucose (07/16/2024 12:28 AM CDT) Glucose, POC 81 70 - 199 mg/dL Blood 07/16/2024 12:2 8 AM CDT 07/16/2024 12:28 AM CDT Michael Mckeon MD LAB POCT ORDERABLES - D EVICE Final Result Performing Organization Address [facility] Co de Phone Number ZULEMA [address] [address] * POCT glucose (07/15/2024 8:19 PM CDT) Glucose, POC 90 70 - 199 mg/dL Blood 07/15/2024 8:19 PM CDT 07/15/2024 8:19 PM CDT Michael Mckeon MD LAB POCT ORDERABLES - D EVICE Final Result Performing Organization Address [facility] Co de Phone Number [address] [address] * POCT glucose (07/15/2024 4:11 PM CDT) Glucose, POC 119 70 - 199 mg/dL Glucose comment 1 Use This Result [facility] Glucose comment 2 RN/MD Notified [facility] Blood 07/15/2024 4:11 PM CDT 07/15/2024 4:11 PM CDT Michael Mckeon MD LAB POCT ORDERABLES - D EVICE Final Result Performing Organization Address City/[facility]/ZIP Co de Phone Number [address] [address] * Pneumonia PCR Sputum (07/15/2024 4:00 PM CDT) C. pneumoniae DNA Not Detected Not Detected Comment:Testing performed by : [facility], [address] [place]., [address] Legionella pneumophila DNA Not Detected Not Detected [facility] Comment:Testing performed by : [facility], [address] [place]., [address] M. pneumoniae DNA Not Detected Not Detected [facility] Comment:Testing performed by : [facility], [address] [facility], [address] Adenovirus DNA Not Detected Not Detected [facility] Comment:Testing performed by : [facility], [address] [place]., [address] Coronavirus (229E, OC43, HKU1, NL63) RNA Not Detected Not Detected [facility] Comment:Testing performed by : [facility], [address] [place]., [address] Metapneumovirus RNA Not Detected Not Detected [facility] Comment:Testing performed by : [facility], [address] [place]., [address] Rhinovirus/Enterov irus RNA Not Detected Not Detected [facility] Comment:Testing performed by : [facility], [address] [facility], [address] Influenza A RNA Not Detected Not Detected [facility] Comment:Testing performed by : [facility], [address] [place]., [address] Influenza B RNA Not Detected Not Detected [facility] Comment:Testing performed by : [facility], [address] [place]., [address] Parainfluenza virus (1-4) RNA Not Detected Not Detected [facility] Comment:Testing performed by : [facility], [address] [facility], [address] RSV RNA Not Detected Not Detected [facility] Comment:Testing performed by : [facility], [address] [place]., [address] Sputum 07/15/2024 4:00 PM CDT 07/15/2024 8:55 [...] of this assay have been determined by [facility]. Current interpretive data was last revised on 2024. Jaki Reynolds S[facility]IOR CENTER DIRECTOR LAB MICROBIOLOGY - GENERAL ORDER SUBHA Final Result [facility] [address] [facility] [place] [address] * (ABNORMAL) Pneumonia PCR with aerobic culture and Gram stain Sputum (07/15/2024 4:00 PM CDT) Direct Specimen Exam Molecular Analysis: 10^6 copies/mL Klebsiella pneumoniae group Correlation of molecular analysis with final culture results is recommended. Comment:Testing performed by : [facility], [address] [place] [address] Direct Specimen Exam Stain: Few polymorphonuclear leukocytes seen. No squamous epithelial cells seen. Rare mixed bacterial oscar seen on Gram stain. ZULEMA CHAVEZ Comment:Testing performed by : [facility], [address] [place]., [address] Report Final Report: Growth indicates upper respiratory oscar. (.) ZULEMA Comment:Testing performed by : [facility], [address] [place]., [address] Organism GROWTH INDICATES UPPER RESPIRATORY OSCAR. ZULEMA Sputum 07/15/2024 4:00 PM CDT 07/15/2024 7:36 PM CDT Narrative [facility] 07/19/2024 2:43 PM CDT When rapid molecular testing results are reported, testing completed using the [employer] Pneumonia Panel. ??This molecular assay detects: Acinetobacter [...] results and susceptibility testing is recommended. The [employer] Pneumonia Panel is cleared by the [place] Food and Drug Administration and its performance characteristics have been confirmed by the [facility]. ??The performance of the [employer] Pneumonia Panel has not been established for monitoring treatment of infection and bacterial nucleic acids may persist independent of organism viability. [facility] LAB MICROBIOLOGY - GENERAL ORDER SUBHA Final Result Performing Organization Address [facility] Co de Phone Number ZULEMA [address] [address] * (ABNORMAL) CRP (acute phase) (07/15/2024 12:35 PM CDT) Pathologist [facility] CRP 82.8(H) <=10.0 mg/L Blood 07/15/2024 12:3 5 PM CDT 07/15/2024 12:53 PM CDT [facility] LAB BLOOD ORDERABLES Final Resul t Performing Organization Address [facility] de Phone Number [address] [address] * (ABNORMAL) Erythrocyte sedimentation rate (07/15/2024 12:35 PM CDT) Pathologist [facility] Erythrocyte sedimentation rate 72(H) 1 - 20 mm/hr Comment:Testing performed by : [facility], [address] [place] [address]., [id number] Blood 07/15/2024 12:3 5 PM CDT 07/15/2024 12:53 PM CDT [facility] LAB BLOOD ORDERABLES Final Resul t Performing Organization Address [facility] Co de Phone Number LESLIE[address] [address] * MRSA Only (Staphylococcus aureus) PCR Nasal (07/15/2024 12:09 PM CDT) Pathologist [facility] PCR Scrn, Methicillin resistant Staphylococcus aureus (MRSA) Not Detected Not Detected Comment: Interpretive Data Testing performed using Nucleic Acid Amplification with the [employer] Xpert MRSA NxG Assay. This assay detects target DNA from mecA, mecC and the SCCmec insertion site of Staphylococcus aureus using Real-Time PCR and has been cleared by the FDA. Performance characteristics have been verified by the [facility]. Current Interpretive Data was last revised on 2023 Nasal 07/15/2024 12:0 9 PM CDT 07/15/2024 12:15 PM CDT Jaki Reynolds NP LAB MICROBIOLOGY - GENERAL ORDER SUBHA Final Result Performing Organization Address City/[facility] Co de Phone Number LESL[address] [address] * (ABNORMAL) Troponin T high-sensitivity (07/15/2024 11:33 AM CDT) Trop T hs 134(H) <=22 ng/L Comment: Interpretive Data For further hscTnT resources including the diagnostic algorithm and an aid in interpretation, copy and paste this link: https://nrl.testcatalog.org/show/hsTrop Current Interpretive Data last revised 2020. Blood 07/15/2024 11:3 3 AM CDT 07/15/2024 11:49 AM CDT Result [facility] Michael Mckeon MD LAB BLOOD ORDERABLES Fi nal Result Performing Organization Address [facility] Co de Phone Number [address] [place] [address] * POCT glucose (07/15/2024 10:36 AM CDT) Glucose, POC 93 70 - 199 mg/dL Glucose comment 1 Use This Result [facility] Glucose comment 2 RN/MD Notified ZULEMA Blood 07/15/2024 10:3 6 AM CDT 07/15/2024 10:36 AM CDT Michael Mckeon MD LAB POCT ORDERABLES - D EVICE Final Result Performing Organization Address City/[facility] Co de Phone Number [address] [place] [address] * (ABNORMAL) Pro B-type natriuretic peptide (07/15/2024 [...] 9:55 AM CDT 07/15/2024 10:27 AM CDT Rukhsaan Collins SENIOR CENTER DIRECTOR LAB BLOOD ORDERABLES Fi nal Result Performing Organization Address [facility] Co de Phone Number [address] [place] [address] * POCT glucose (07/15/2024 7:26 AM CDT) Glucose, POC 106 70 - 199 mg/dL Glucose comment 1 Use This Result [facility] Glucose comment 2 RN/MD Notified [facility] Blood 07/15/2024 7:26 AM CDT 07/15/2024 7:26 AM CDT us Michael Mckeon MD LAB POCT ORDERABLES - D EVICE Final Result Performing Organization Address [facility] de Phone Number [address] [address] * POCT glucose (07/15/2024 4:31 AM CDT) Glucose, POC 120 70 - 199 mg/dL Blood 07/15/2024 4:31 AM CDT 07/15/2024 4:31 AM CDT James Bruno MD LAB POCT ORDERA BLES - DEVICE Final Result Performing Organization Address [facility] Co de Phone Number [address] [place] [address] * eGFR (07/15/2024 3:27 AM CDT) eGFR [...] CDT 07/15/2024 3:34 AM CDT Rukhsana Collins SENIOR CENTER DIRECTOR LAB BLOOD ORDERABLES Fi nal Result Performing Organization Address City/State/[facility] Co de Phone Number [facility] [address] [facility] [place] [address] * Differential, auto (07/15/2024 3:27 AM CDT) Pathologist [facility] Neutrophil abs 5.5 1.5 - 6.5 K/cumm Imm gran abs 0.0 0.0 - 0.1 K/cumm [facility] Lymphocyte abs 2.4 0.8 - 3.3 K/cumm [facility] Monocyte abs 0.6 0.2 - 0.8 K/cumm [facility] Eosinophil abs 0.1 0.0 - 0.5 K/cumm [facility] Basophil abs 0.0 0.0 - 0.1 K/cumm [facility] Neutrophil pct 63.8 % [facility] Comment: Interpretive Data Percent cell count reference ranges are not reported, since discordance with absolute values may lead to misinterpretation of CBC data. Current Interpretive Data was last revised on 2018. Imm gran pct 0.3 % [facility] Comment: Interpretive Data Percent cell count reference ranges are not reported, since discordance with absolute values may lead to misinterpretation of CBC data. Current Interpretive Data was last revised on 2018. Lymphocyte pct 27.3 % [facility] Comment: Interpretive Data Percent cell count reference ranges are not reported, since discordance with absolute values may lead to misinterpretation of CBC data. Current Interpretive Data was last revised on 2018. Monocyte pct 7.2 % [facility] Comment: Interpretive Data Percent cell count reference ranges are not reported, since discordance with absolute values may lead to misinterpretation of CBC data. Current Interpretive Data was last revised on 2018. Eosinophil pct 1.1 % [facility] Comment: Interpretive Data Percent cell count reference ranges are not reported, since discordance with absolute values may lead to misinterpretation of CBC data. Current Interpretive Data was last revised on 2018. Basophil pct 0.3 % [facility] Comment: Interpretive Data Percent cell count reference ranges are not reported, since discordance with absolute values may lead to misinterpretation of CBC data. Current Interpretive Data was last revised on 2018. Blood 07/15/2024 3:27 AM CDT 07/15/2024 3:34 AM CDT us Rukhsana Collins SENIOR CENTER DIRECTOR LAB BLOOD ORDERABLES Fi nal Result [facility] [address] [facility] [place] [address] * (ABNORMAL) Pro B-type natriuretic [...] CDT 07/15/2024 3:34 AM CDT Rukhsana Collins SENIOR CENTER DIRECTOR LAB BLOOD ORDERABLES Fi nal Result Performing Organization Address City/State/[facility] Co de Phone Number ZULEMA [address] [address] * (ABNORMAL) Lipase (07/15/2024 3:27 AM CDT) Lipase 865(H) 10 - 99 Units/L Blood 07/15/2024 3:27 AM CDT 07/15/2024 3:34 AM CDT us Rukhsana Collins SENIOR CENTER DIRECTOR LAB BLOOD ORDERABLES Fi nal Result Performing Organization Address [facility] de Phone Number ZULEMA [address] [address] * (ABNORMAL) Troponin T high-sensitivity (07/15/2024 3:27 AM CDT) Trop T hs 192(H) <=22 ng/L Comment: Interpretive Data For further hscTnT resources including the diagnostic algorithm and an aid in interpretation, copy and paste this link: https://nrl.testcatalog.org/show/hsTrop Current Interpretive Data last revised 2020. Blood 07/15/2024 3:27 AM CDT 07/15/2024 3:34 AM CDT us Rukhsana Collisn SENIOR CENTER DIRECTOR LAB BLOOD ORDERABLES Fi nal Result Performing Organization Address [facility] Co de Phone Number ZULEMA [address] [address] * Phosphorus (07/15/2024 3:27 AM CDT) Pathologist [facility] Phosphorus, pl 3.0 2.3 - 4.5 mg/dL Blood 07/15/2024 3:27 AM CDT 07/15/2024 3:34 AM CDT us Rukhsana Collins SENIOR CENTER DIRECTOR LAB BLOOD ORDERABLES Fi nal Result Performing Organization Address [facility] Co de Phone Number LES[address] [address] * (ABNORMAL) Magnesium (07/15/2024 3:27 AM CDT) [facility] Magnesium 1.3(L) 1.4 - 2.5 mg/dL Blood 07/15/2024 3:2 7 AM CDT 07/15/2024 3:34 AM CDT Rukhsana Collins SENIOR CENTER DIRECTOR LAB BLOOD ORDERABLES Fi nal Result Performing Organization Address [facility] Co de Phone Number [address] [address] * (ABNORMAL) Basic metabolic panel (07/15/2024 3:27 AM CDT) [facility] Sodium 137 135 - 145 mmol/L Potassium, pl 3.8 3.3 - 4.9 mmol/L [facility] Chloride 103 97 - 110 mmol/L [facility] CO2 25 22 - 32 mmol/L [facility] Anion gap 9 2 - 15 mmol/L [facility] BUN 11 6 - 25 mg/dL [facility] Creatinine 0.62(L) 0.80 - 1.30 mg/dL [facility] Glucose 131 70 - 199 mg/dL [facility] Comment: Interpretive Data Fasting glucose [...] 2022. Calcium 8.7 8.5 - 10.3 mg/dL [facility] Blood 07/15/2024 3:27 AM CDT 07/15/2024 3:34 AM CDT Rukhsana Collins SENIOR CENTER DIRECTOR LAB BLOOD ORDERABLES Fi nal Result Performing Organization Address City/[facility] Co de Phone Number ZUELMA [facility] [place] [address] * (ABNORMAL) CBC with auto differential (07/15/2024 3:27 AM CDT) Pathologist [facility] WBC 8.7 3.8 - 9.9 K/cumm Hgb 9.8(L) 13.0 - 17.5 g/dL [facility] Hct 30.0(L) 38.9 - 50.3 % [facility] Plt 441(H) 150 - 400 K/cumm [facility] MPV 10.1 9.1 - 12.3 fL [facility] RBC 2.97(L) 4.30 - 5.80 M/cumm [facility] MCV 101.0(H) 81.3 - 96.4 fL [facility] MCH 33.0 27.1 - 33.3 pg [facility] MCHC 32.7 32.3 - 35.7 g/dL [facility] RDW CV 15.6(H) 11.1 - 14.9 % [facility] RDW SD 57.1(H) 35.7 - 48.1 fL [facility] NRBC abs 0.05(H) 0.00 - 0.01 K/cumm [facility] Blood 07/15/2024 3:27 AM CDT 07/15/2024 3:34 AM CDT Rukhsana Collins SENIOR CENTER DIRECTOR LAB BLOOD ORDERABLES Fi nal Result ZULEMA [address] [place] [address] * Sepsis Lactate w/ Reflex (07/15/2024 3:27 AM CDT) Pathologist [facility] Sepsis Lactate 0.8 0.7 - 2.0 mmol/L Blood 07/15/2024 3:27 AM CDT 07/15/2024 3:32 AM CDT Cameron BERNAL LAB BLOOD ORDERABLES Final R esult Performing Organization Address [facility] Co de Phone Number [address] [place] [employer] [address] * POCT glucose (07/15/2024 12:20 AM CDT) Glucose, POC 111 70 - 199 mg/dL Glucose comment 1 Use This Result [facility] Blood 07/15/2024 12:2 0 AM CDT 07/15/2024 12:20 AM CDT James Bruno MD LAB POCT ORDERA BLES - DEVICE Final Result Performing Organization Address [facility] de Phone Number [address] [place] [address] * (ABNORMAL) Urinalysis, microscopic only (07/14/2024 11:34 PM CDT) WBC, ur 6-10(A) 0 - 5 /HPF RBC, ur 6-10(A) 0 - 2 /HPF ZLUEMA Mucous, ur Present(A) ZULEMA Hyaline casts, ur 1-5 0 - 10 /LPF [facility] Culture Reflex Comment Reflex conditions for urine culture (WBC >10) not met. ZULEMA Urine 07/14/2024 11:3 4 PM CDT 07/14/2024 11:37 PM CDT James Bruno MD LAB URINE ORDER SUBHA Final Result Performing Organization Address [facility] Co de Phone Number [address] [employer] [place], [place] [id number] * (ABNORMAL) Urinalysis reflex to microscopic and culture Urine (07/14/2024 11:34 PM CDT) Color, ur Yellow Yellow Clarity, ur Clear Clear [facility] Specific gravity, ur 1.045(H) 1.003 - 1.030 [facility] pH, urine 6.0 [facility] Comment: Interpretive Data ? Urine pH is affected by diet, medications, systemic acid-base disturbances, and renal tubular function. ??pH may affect urinary stone formation. ??For example, urine pH below 6.0 may help reduce the tendency for calcium phosphate stones and pH greater than 6.0 may reduce the tendency for uric acid stone formation. Source: [facility] Current Interpretive Data was last revised on 2017 Protein, ur ql Negative Negative [facility] Glucose, ur ql Negative Negative [facility] Ketones, ur Negative Negative [facility] Bilirubin, ur Negative Negative [facility] Blood, ur 2+(A) Negative [facility] Urobilinogen, ur <2.0 <2.0 mg/dL [facility] Nitrite, ur Negative Negative [facility] Leukocyte esterase, ur Negative Negative [facility] UA reflex comment Reflex to microscopic UA will be performed. [facility] Urine 07/14/2024 11:3 4 PM CDT 07/14/2024 11:37 PM CDT us James Bruno MD LAB MICROBIOLOG Y - GENERAL ORDERABLES Final Result Performing Organization Address City/[facility]/ZIP Co de Phone Number ZULEMA [address] [facility] [place] [address] * PTH (07/14/2024 11:30 PM CDT) PTH 18 15 - 65 pg/mL Blood 07/14/2024 11:3 0 PM CDT 07/14/2024 11:33 PM CDT us Cameron BERNAL LAB BLOOD ORDERABLES Final R esult Performing Organization Address City/[facility]/ZIP Co de Phone Number ZULEMA [address] [facility] [place] [address] * Blood culture Blood Peripheral (07/14/2024 10:53 PM CDT) Report Final Report: No growth Comment:Testing performed by : [facility], [address] [facility], [place]., [address] Blood (Peripheral) 07/14/2024 10:53 PM CDT 07/15/2024 [...] organism identification may be performed using the [employer] Gram-Positive Blood Culture Assay. This assay detects microbial DNA in positive blood culture broth via hybridization of target DNA to capture oligonucleotides on a microarray. This assay has been cleared by the [place] Food and Drug Administration and its performance characteristics have been verified by the [facility]. 5. ?For questions about this culture, contact the Microbiology Laboratory at [phone]. Interpretive data was last revised on 2020. us Cameron BERNAL LAB MICROBIOLOGY - GENERAL O RDERABLES Final Result ZULEMA CHAVEZ [address] [facility] Department [place] [address] * Blood culture Blood Peripheral (07/14/2024 10:50 PM CDT) Report Final Report: No growth Comment:Testing performed by : [facility], [address] [facility], [place]., [address] Blood (Peripheral) 07/14/2024 10:50 PM CDT 07/15/2024 [...] organism identification may be performed using the [employer] Gram-Positive Blood Culture Assay. This assay detects microbial DNA in positive blood culture broth via hybridization of target DNA to capture oligonucleotides on a microarray. This assay has been cleared by the [place] Food and Drug Administration and its performance characteristics have been verified by the [facility]. 5. ?For questions about this culture, contact the Microbiology Laboratory at [phone]. Interpretive data was last revised on 2020. us Cameron BERNAL LAB MICROBIOLOGY - GENERAL O RDERABLES Final Result ZULEMA CHAVEZ [address] [facility] [place] [address] * (ABNORMAL) Sepsis Lactate w/ Reflex (07/14/2024 10:50 PM CDT) Sepsis Lactate 2.6(C) 0.7 - 2.0 mmol/L Comment:Critical Result call ed to and read back by [email or web address], DATE: 2024-07-14 23:40:31 BY: [email or web address] Blood 07/14/2024 10:5 0 PM CDT 07/14/2024 11:10 PM CDT us Cameron Pierce PA LAB BLOOD ORDERABLES Final R esult Performing Organization Address [facility] Co de Phone Number LESLIE[address] [place] [employer] [place] [address] * (ABNORMAL) Troponin T high-sensitivity 6-hour (07/14/2024 10:50 PM CDT) Trop T hs 121(H) <=22 ng/L Comment: Interpretive Data For further hscTnT resources including the diagnostic algorithm and an aid in interpretation, copy and paste this link: https://nrl.testcatalog.org/show/hsTrop Current Interpretive Data last revised 2020. Trop T hs interp Equivocal [facility] Blood 07/14/2024 10:5 0 PM CDT 07/14/2024 11:10 PM CDT us Willam Bryant MD LAB BLOOD ORDERABLES Final Result Performing Organization Address [facility] de Phone Number LES[address]IE[address] [place] [employer] [place] [address] * CT Chest W Contrast (07/14/2024 10:34 [...] D: ??07/14/2024 11:24 PM T: Report ID: [id number] Reading Location: ??[id number] Procedure Note Kaushik Nur MD - 07/14/2024 [...] signed by Kaushik FERREIRA T: Report ID: [id number] Reading Location: [place] [address] PROCEDURES Final Resu [...] D: ??07/14/2024 9:27 PM T: Report ID: [id number] Reading Location: ??[id number] Procedure Note Mandy Hawthorne MD - 07/14/2024 [...] Mandy Ng M.D. FT T: Report ID: [id number] Reading Location: [place] [address] PROCEDURES Final Resu [...] ORDERABLES Final R esult Performing Organization Address City/[facility]/ZIP Co de Phone Number ZULEMA [address] [address] * (ABNORMAL) Troponin T high-sensitivity 2-hour (07/14/2024 6:22 PM CDT) Trop T hs 137(H) <=22 ng/L Comment: Interpretive Data For further hscTnT resources including the diagnostic algorithm and an aid in interpretation, copy and paste this link: https://nrl.testcatalog.org/show/hsTrop Current Interpretive Data last revised 2020. Trop T hs pct delta 7 % [facility] Trop T hs interp Equivocal [facility] Blood 07/14/2024 6:22 PM CDT 07/14/2024 6:25 PM CDT us Willam Bryant MD LAB BLOOD ORDERABLES Final Result Performing Organization Address [facility] Co de Phone Number ZULEMA [address] [address] * ECG 12 lead (07/14/2024 4:24 PM CDT) Ventricular Rate EKG/Min 91 BPM [facility] Atrial Rate 91 BPM [facility] DE-Interval (MSEC) 132 ms [facility] QRS-Interval (MSEC) 78 ms [facility] QT-Interval (MSEC) 454 ms [facility] QTc 558 ms [facility] P [place] 83 degrees [facility] R [place] 95 degrees [facility] T [place] 78 degrees [facility] Diagnosis Sinus rhythm with occasional Premature ventricular complexes Rightward axis Anterior infarct , age undetermined Abnormal ECG When compared with ECG of 15-JUN-2024 17:29, Significant changes have occurred Confirmed by KATYA MARTINEZ M.D. ([id number]) on 07/15/2024 12:34:29 PM [facility] 07/14/2024 4:24 PM CDT 07/15/2024 12:34 PM CDT us James Bruno MD ECG ORDERABLES Final Result [facility] * eGFR (07/14/2024 4:22 PM CDT) eGFR [...] LAB BLOOD ORDER SUBHA Final Result ZULEMA [address] [facility] [place] [address] * Differential, auto (07/14/2024 4:22 PM CDT) Pathologist [facility] Neutrophil abs 3.3 1.5 - 6.5 K/cumm Imm gran abs 0.0 0.0 - 0.1 K/cumm [facility] Lymphocyte abs 2.3 0.8 - 3.3 K/cumm [facility] Monocyte abs 0.6 0.2 - 0.8 K/cumm [facility] Eosinophil abs 0.1 0.0 - 0.5 K/cumm [facility] Basophil abs 0.0 0.0 - 0.1 K/cumm [facility] Neutrophil pct 51.9 % [facility] Comment: Interpretive Data Percent cell count reference ranges are not reported, since discordance with absolute values may lead to misinterpretation of CBC data. Current Interpretive Data was last revised on 2018. Imm gran pct 0.3 % [facility] Comment: Interpretive Data Percent cell count reference ranges are not reported, since discordance with absolute values may lead to misinterpretation of CBC data. Current Interpretive Data was last revised on 2018. Lymphocyte pct 37.2 % [facility] Comment: Interpretive Data Percent cell count reference ranges are not reported, since discordance with absolute values may lead to misinterpretation of CBC data. Current Interpretive Data was last revised on 2018. Monocyte pct 9.1 % [facility] Comment: Interpretive Data Percent cell count reference ranges are not reported, since discordance with absolute values may lead to misinterpretation of CBC data. Current Interpretive Data was last revised on 2018. Eosinophil pct 1.0 % [facility] Comment: Interpretive Data Percent cell count reference ranges are not reported, since discordance with absolute values may lead to misinterpretation of CBC data. Current Interpretive Data was last revised on 2018. Basophil pct 0.5 % [facility] Comment: Interpretive Data Percent cell count reference ranges are not reported, since discordance with absolute values may lead to misinterpretation of CBC data. Current Interpretive Data was last revised on 2018. Blood 07/14/2024 4:22 PM CDT 07/14/2024 4:33 PM CDT us James Bruno MD LAB BLOOD ORDER SUBHA Final Result Performing Organization Address City/[facility]/ZIP Co de Phone Number ZULEMA [address] [address] * Ethanol (07/14/2024 4:22 PM CDT) Ethanol <10 <=10 mg/dL Comment: Interpretive Data Legal limit of intoxication > or = 80 mg/dL Levels > or = 400 mg/dL are potentially TOXIC. Current interpretive data was last revised on 2019. Blood 07/14/2024 4:22 PM CDT 07/14/2024 4:33 PM CDT James Bruno MD LAB BLOOD ORDER SUBHA Final Result Performing Organization Address [facility] de Phone Number ZULEMA [address] [address] * (ABNORMAL) Troponin T high-sensitivity series (baseline, 2hr, 4hr, 6hr) (07/14/2024 4:22 PM CDT) Pathologist [facility] Trop T hs 128(H) <=22 ng/L Comment: Interpretive Data For further hscTnT resources including the diagnostic algorithm and an aid in interpretation, copy and paste this link: https://nrl.testcatalog.org/show/hsTrop Current Interpretive Data last revised 2020. Blood 07/14/2024 4:22 PM CDT 07/14/2024 4:33 PM CDT James Bruno MD LAB BLOOD ORDER SUBHA Final Result Performing Organization Address City/[facility] Co de Phone Number ZULEMA [address] [address] * (ABNORMAL) Lipase (07/14/2024 4:22 PM CDT) Pathologist [facility] Lipase 501(H) 10 - 99 Units/L Blood (Blood, Venous) 07/14/2024 4:22 PM CDT 07/14/2024 4:33 PM CDT James Bruno MD LAB BLOOD ORDER SUBHA Final Result [facility] [address] [facility] Department [place] [address] * (ABNORMAL) Comprehensive metabolic panel (07/14/2024 4:22 PM CDT) Pathologist [facility] Sodium 136 135 - 145 mmol/L Potassium, pl 3.9 3.3 - 4.9 mmol/L [facility] Chloride 97 97 - 110 mmol/L [facility] CO2 28 22 - 32 mmol/L [facility] Anion gap 11 2 - 15 mmol/L [facility] BUN 13 6 - 25 mg/dL [facility] Creatinine 0.75(L) 0.80 - 1.30 mg/dL [facility] Glucose 155 70 - 199 mg/dL [facility] Comment: Interpretive Data Fasting glucose [...] 2022. Calcium 9.7 8.5 - 10.3 mg/dL [facility] Bilirubin, total 0.3 0.1 - 1.2 mg/dL [facility] Protein, pl 7.9 6.5 - 8.5 g/dL [facility] Albumin 3.4(L) 3.5 - 5.0 g/dL [facility] Alk phos 210(H) 40 - 130 Units/L [facility] ALT 11 7 - 55 Units/L [facility] AST 20 10 - 50 Units/L [facility] Blood 07/14/2024 4:22 PM CDT 07/14/2024 4:33 PM CDT James Bruno MD LAB BLOOD ORDER SUBHA Final Result Performing Organization Address [facility] Co de Phone Number ZULEMA [address] [place] [address] * (ABNORMAL) CBC with auto differential (07/14/2024 4:22 PM CDT) Pathologist [facility] WBC 6.3 3.8 - 9.9 K/cumm Hgb 10.7(L) 13.0 - 17.5 g/dL [facility] Hct 33.0(L) 38.9 - 50.3 % [facility] Plt 473(H) 150 - 400 K/cumm [facility] MPV 10.3 9.1 - 12.3 fL [facility] RBC 3.31(L) 4.30 - 5.80 M/cumm [facility] MCV 99.7(H) 81.3 - 96.4 fL [facility] MCH 32.3 27.1 - 33.3 pg [facility] MCHC 32.4 32.3 - 35.7 g/dL [facility] RDW CV 15.5(H) 11.1 - 14.9 % [facility] RDW SD 56.2(H) 35.7 - 48.1 fL [facility] NRBC abs 0.02(H) 0.00 - 0.01 K/cumm [facility] Blood (Blood, Venous) 07/14/2024 4:22 PM CDT 07/14/2024 4:33 PM CDT James Bruno MD LAB BLOOD ORDER SUBHA Final Result Performing Organization Address City/[facility]/ZIP Co de Phone Number ZULEMA [address] [place] [address] documented in this encounter Visit Diagnoses Diagnosis [...] 2 puff, inhalation, Every 6 hours PRN (incident response consultant), wheezing, Starting on Sat07/15/24 at 0329 Given [...] puff 2 puff, inhalation, 2 times daily (incident response consultant), First dose on Sat07/15/24 at 0800, Rinse [...] Call MD for each episode of hypoglycemia. STENCILING MACHINE TENDER STATES GLUTOSE-15 CONTAINS GLUCOSE 40% W/W (50% [...] 3 mL, nebulization, Every 4 hours PRN (incident response consultant), wheezing, shortness of breath, Starting on Sat07/15/24 at 1204, Indications: Chronic Obstructive Pulmonary Disease with BronchospasmsIndications:C hronic Obstructive Pulmonary Disease with Bronchospasms Given 07/15/2024 8:54 PM CDT 3 mL Given 07/15/2024 12:38 PM CDT 3 mL ipratropium-albuteroL (DUO-NEB) 0.5-2.5 mg/3 mL nebulizer solution 3 mL 3 mL, nebulization, Every 6 hours (incident response consultant), First dose (after last modification) on Sat07/15/24 [...] mL 1.5 mL, nebulization, 2 times daily (incident response consultant), First dose on Sat07/17/24 at 1000 tacrolimus immediate-release capsule 0.5 mg 0.5 mg, oral, Every other day, First dose on Sat07/15/24 at 0900, Avoid grapefruit juice Given 07/17/2024 9:41 AM CDT 0.5 mg Given 07/15/2024 10:31 AM CDT 0.5 mg tiotropium bromide (SPIRIVA RESPIMAT) 2.5 mcg/actuation inhaler 2 puff 2 puff, inhalation, Daily (incident response consultant), First dose on Sat07/15/24 at 0900, On [...] puff 2 puff, inhalation, 2 times daily (incident response consultant), First dose on Sat07/15/24 at 0800, Rinse mouth with water after use. Do not swallow. 0822 (Not Given - Provider: Elle Martin RRT - Reason: Medication not available)1056 (Given - Provider: Elle Martin, BRANDEN)2050 (Given - Provider: Cha Burch, BRANDEN) 09 (Given - Provider: Haritha Bryson, BRANDEN)215 (Given - Provider: Cielo Ocampo, BRANDEN) 0838 (Given - Provider: Pat Busby, GRAIN MANAGER) cefTRIAXone (ROCEPHIN) 2,000 mg/20 mL in sterile [...] mL 3 mL, nebulization, Every 6 hours (incident response consultant), First dose (after last modification) on Sat07/15/24 at 2215, Indications: Chronic Obstructive Pulmonary Disease with Bronchospasms 2131 (Hold - Provider: Shaye Talbert RRT - Reason: Contraindicated - Comment: pt given prn 2051) 0306 (Given - Provider: Shaye Talbert, BRANDEN)0919 (Given - Provider: Haritha Bryson, RN PRIMARY CARE)1504 (Given - Provider: Haritha Bryson, BRANDEN)2151 (Given [...] mL 1.5 mL, nebulization, 2 times daily (incident response consultant), First dose on Sat07/17/24 at 1000 1001 [...] inhaler 2 puff 2 puff, inhalation, Daily (incident response consultant), First dose on Sat07/15/24 at 0900, On [...] 2 puff, inhalation, Every 6 hours PRN (incident response consultant), wheezing, Starting on Sat07/15/24 at 0329 1742 (Given - Provider: Elle Martin, RN PRIMARY CARE) dextrose (D10W) 10% bolus 250 mL(Linked Group [...] Call MD for each episode of hypoglycemia. STENCILING MACHINE TENDER STATES GLUTOSE-15 CONTAINS GLUCOSE 40% W/W (50% [...] 3 mL, nebulization, Every 4 hours PRN (incident response consultant), wheezing, shortness of breath, Starting on Sat07/15/24 [...] Call MD for each episode of hypoglycemia. STENCILING MACHINE TENDER STATES GLUTOSE-15 CONTAINS GLUCOSE 40% W/W (50% [...] 40 % gel 15 g 1 07/15/20 vzwtbzrvtan-ipfgekvjd-bwoufj er (TRELEGY ELLIPTA) 200-62.5-25 mcg inhaler 1 [...] documented as of this encounter Care Teams Lining Stitcher Relationship Specialty Start Date End Date Kirt Lindsay DO PCP - General Internal Medicine 02/02/21 Josué Del Valle MD PhD Medical Oncologist/Temporary Help Agency Referral Clerk Medical Oncology 08/26/19 Cal Carranza DO [address] [facility] [address] [place] [address] Day Light Relief Operator Internal Medicine 06/12/23 Halie Khan MD [address] [facility] [address] [place] [address] Compliance Manager Critical Care Med 06/12/23 Wilfred Kinsey MD [address] [address] Consulting Physician Gastroenterology 03/02/24 documented as of this encounter
--- OUTSIDE RECORDS SUMMARY | 2024-11-22 12:49 | XMS_ITS | Encounter Summary ---
Author Organization [facility] Address [address] [facility] [address] [place] [address] Phone Care Team Providers Care Serging Machine Operator Name Role Phone Josué Del Valle MD PhD Unavailable [phone] Kirt Lindsay DO Primary Care Provider [phone] Cal Carranza DO Unavailable [phone] Halie Khan MD Unavailable [phone] Wilfred Kinsey MD Unavailable Encounter Details Date Type Department Care Team (Late st Contact Info) Description 07/13/2024 Telephone [facility] Infectious Diseases [address] [place] [phone] Page Marsh Social History Tobacco Use Types Packs/Day Years Used Date Smoking Tobacco: Some Days Cigarettes 0.5 40.4 Started: 1984 Smokeless Tobacco: Never Comments:pt states tried to quit [facility] Utilities Answer Date Recorded In [...] week 06/16/2024 How often do you attend anglican or zoroastrian serv ices? 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 Gender Identity Not on file Sexual [...] documented as of this encounter Care Teams Serging Machine Operator Relationship Specialty Start Date End Date Kirt Lindsay DO PCP - General Internal Medicine 02/02/21 Josué Del Valle MD PhD Medical Oncologist/Combination Presser Medical Oncology 08/26/19 Cal Carranza DO [address] [place] [address] Tamale Maker Internal Medicine 06/12/23 Halie Khan MD [address] [facility] [address] [place] [address] Youth Care Worker Critical Care Med 06/12/23 Wilfred Kinsey MD [address] [address] Consulting Physician Gastroenterology 03/02/24 documented as of this encounter
--- OUTSIDE RECORDS SUMMARY | 2024-11-22 12:49 | XMS_ITS | Encounter Summary ---
Author Organization [facility] Address [address] [place] [address] Phone Care Team Providers Care Electrical Maintenance Mechanic Name Role Phone Josué Del Valle MD PhD Unavailable [phone] Kirt Lindsay DO Primary Care Provider [phone] Cal Carranza DO Unavailable [phone] Halie Khan MD Unavailable [phone] Wilfred Kinsey MD Unavailable Encounter Details Date Type Department Care Team (Late st Contact Info) Description 07/29/2024 Telephone [facility] Infectious Diseases [address] [place] [phone] Justine Raygoza BS Social History Tobacco Use Types Packs/Day Years Used Date Smoking Tobacco: Some Days Cigarettes 0.5 40.4 Started: 1984 Smokeless Tobacco: Never Comments:pt states tried to quit; smoking 5 cigs/wk [facility] Utilities Answer Date Recorded In the past 12 months has th [employer] electric, gas, oil, or water company threatened [...] How often do you attend cheondoism or episcopalian serv ices? Never 07/24/2024 Do [...] any time in the past 12 m [facility], were you homeless or living in a intermediate (including now)? No 07/24/2024 Personal Safety Answer Date Recorded Have you ever been in or are you currently in a harmful physical or emotional relationship or is someone making you feel afraid or unsafe? 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 Gender Identity Not on file Sexual Orientation Not on file documented as of this encounter Miscellaneous Notes * Telephone Encounter - Ashley Mccarthy - 07/29/2024 3:09 PM CDT Advised that I am not sure if ID is following at this time since he has not discharged * Telephone Encounter - Justine Raygoza BS - 07/29/2024 1:02 PM CDT Mildred from [facility] visiting nurses calling to confirm Kimberly will be following pt for iv abx Mildred @ [phone] 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 documented as of this encounter Care Teams Electrical Maintenance Mechanic Relationship Specialty Start Date End Date Kirt Lindsay, DO PCP - General Internal Medicine 02/02/21 Josué Del Valle MD PhD Medical Oncologist/Raise Drill Operator Medical Oncology 08/26/19 Cal Carranza DO [address] [place] [address] Assistant Paralegal Internal Medicine 06/12/23 Halie Khan MD [address] [place] [address] Instruction Dean Critical Care Med 06/12/23 Wilfred Kinsey MD [address] [address] Consulting Physician Gastroenterology 03/02/24 documented as of this encounter
--- OUTSIDE RECORDS SUMMARY | 2024-11-22 12:49 | XMS_ITS | Encounter Summary ---
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 contact the covering patient case manager. SD referral with [facility] SOC 08/03/24. [place] on-call nurse notified of patient discharge 08/02/24 1045. Jeaneth Miranda, MSN, RN, Welding Estimator [phone]. * Plan of Care - Dora Toth [...] the Shift: VSS, possible DC home, safety Jail Patient Centered Goal for Treatment: d/c Summary: * Plan of Care - Laly Olivas RN - 08/02/2024 2:40 AM CDT Goals: Clinical Goals for the Shift: VSS, safety, rest Jail Patient Centered Goal for Treatment: d/c Summary: [...] not medically ready for discharge today. Weekend [facility] Home Infusion coordinator notified. CM will continue to follow for discharge needs. For weekend assistance, please contact the on-call weekend patient case manager. * Plan of Care - Anaid Burrell [...] for the Shift: patient remains safe, vss Jail Patient Centered Goal for Treatment: d/c Summary: * Plan of Care - Esther Ayala RN - 07/31/2024 10:31 PM CDT Goals: Clinical Goals for the Shift: VSS, rest, BG management, pain control Jail Patient Centered Goal for Treatment: d/c Problem: [...] Home Infusion Agency: [facility] Following Pharmacist: [facility] Home Health Agency (phone/fax): [facility] [phone] [Type of line/Active LDAs/Wounds and ORDERS: DL [...] assistance, please check the treatment team in [facility] for the assigned patient case manager or contact the weekend Case Management phone. * Plan of Shannon - Anaid Miranda RN - 07/31/2024 3:47 PM CDT 07/31/24 6527 Communications Important Message from Medicare notice given to patient? Yes IM letter completed with patient/administrative representative at bedside. Patient/administrative representative were informed ofthe planned discharge date, the date the beneficiary's financial liability begins, the beneficiary's appeal rights, and how and when to initiate an appeal. Patient/administrative representative were provided a copy of the IM letter and IM letter was placed in unit???s designated medical record bin to be uploaded into the patient???s chart. E. Dori Miranda, MSN, RN, Welding Estimator [phone]. * Plan of Care - Brittany Lagos RN - 07/31/2024 12:03 PM CDT Spoke with patient and had discussion regarding home infusion patient/caregiver responsibilities. Patient verbalizes understanding and agreeable to managing infusions at home again. Benefits discussed and agreeable to cost. Waiting final recommendations. [facility] has accepted the patient. [facility] accepted for long-term with soc 08/03 Brittany/Milana Lagos sourcing associateShell Grader, [facility] home care [phone] * Plan of Care - Esther Ayala RN - 07/31/2024 12:23 AM CDT Goals: Clinical Goals for the Shift: VSS, BG management, rest Jail Patient Centered Goal for Treatment: d/c Problem: [...] and oxygenation Outcome: Progressing Flowsheets (Taken 07/30/2024 2337) Achieves optimal ventilation and oxygenation: Assess for changes in respiratory status Manage oxygen therapy Goals: Clinical Goals for the Shift: Maintain stable vitals , adequate oxygenation, promote safety and comfort. Process Analyst Patient Centered Goal for Treatment: d/c Summary: pt. Has maintained good sats on 3L of o2 per NC. Pt. Ready for DC home tomorrow. * Plan of Care - Anaid Miranda RN - 07/30/2024 3:56 PM CDT 07/30/24 1555 Discharge Planning Support System Friends/neighbors Anticipated discharge level of FDC health care Type of Transportation Private vehicle Private Vehicle Information Friend Has discharge transport been arranged? No Post Acute Care Plan Home Care Services Yes Type of Home Care Services Home infusion;Home therapies Home Care Services Name and Phone Number [facility] HI OP Services N/A DME N/A Post [...] Patient and/or family are agreeable with plan. loss prevention operations manager will continue to follow and assist with discharge planning as needed. If any further discharge needs arise, please contact the covering patient case manager. Dori Miranda, MSN, RN [facility], [facility] Welding Estimator [phone] * Plan of Care - Matilde Burnett [...] , adequate oxygenation, promote safety and comfort. Jail Patient Centered Goal for Treatment: d/c Summary: [...] mg, oral, Daily flash glucose scanning reader (OrtheraStyle Evaristo 2 [place]) [facility] Use to test blood glucose continuously flash glucose sensor (FreeStyle Evaristo 2 Sensor) kit Change sensor every 14 days xkeetqxfbdc-xosunqpaa-nlsqowyl (Trelegy Ellipta) 200-62.5-25 mcg inhaler 1 puff, inhalation, Daily gabapentin (NEURONTIN) 300 mg capsule TAKE ONE CAPSULE BY MOUTH FOUR TIMES DAILY @ 6CE-2RM-9DE-9PM guaiFENesin ER (MUCINEX) 600 mg, oral, 2 [...] * Plan of Care - Quiana Rai, RN - 07/29/2024 11:35 AM CDT Goals: Clinical Goals for the Shift: vss, safety Process Analyst Patient Centered Goal for Treatment: d/c Problem: [...] Saturday. For after hour emergencies please call [phone]. Any referrals received after 4pm will be processed the next day. For discharge planning purposes please keep in mind that referrals can take 24 or more hours to process. Thank You Brittany/Milana Lagos, sourcing associateShell Grader, [facility] home care [phone] * Plan of Care - Celso Teran - 07/29/2024 4:41 AM CDT Problem: Infection Goal: Absence of infection during hospitalization Outcome: Progressing Problem: Cardiovascular Goal: Cardiovascular status will improve Outcome: Progressing Goals: Clinical Goals for the Shift: vss, safety Process Analyst Patient Centered Goal for Treatment: d/c Summary: * Provider Query - Stephani Reddy MD - 07/28/2024 8:31 PM CDT THIS IS A VALIDATION QUERY - ADDITIONAL CLINICAL INFORMATION REQUESTED Based on the [facility] approved criteria for respiratory failure (see [...] Indicators/Treatments: O2 sat 96-100 since admit to [facility] H/P 6 L O2 in ED at admit, 4 L @home 07/23-07/27 Acute on chronic respiratory failure (Hx Mycoplasma avium and cavitary lung disease, on home oxygen requirements 07/24 ID: more likely progression of MAC, COPD, and CHF over new infection. per vs graph O2 tqi=809 on 07/23, RR range 16-19, no documented BIPAP @ [facility] References: Respiratory Failure Screening Criteria Acute Respiratory [...] clinical impression in detail Respiratory Failure References [employer] Hospitalist Sep 2013 Coding Clinics: 3rd Q 1987, p 7 and 2nd Q 1989, p.20 [email or web address].gov/ydftruvo-gok-byeylqgdv/medicare-learning-network-mln/mlnprod ucts/downloads/vlos-tnfxfd-bvjljxa-text-only.pdf From the ICD-10-CM Coding Guidelines, use of [...] Ernestine Pardo RN CDIS Clinical Documentation Integrity [phone] [email or web address] * Plan of Care - Sudha Chowdhury RN - 07/28/2024 3:55 PM CDT Neuro: x4. Resp: 3L NC. Cardiac: VSS. Skin: Generalized bruising. GI/: Voiding in urinal. BM on shift in BSC. Activity:SBA. Pain: Denies pain on shift. * ECIN Manuel - Anaid Miranda RN - 07/28/2024 3:38 [...] when I feel weak -CO Level of [place] -- Independent with ambulation;Independent functional transfers;Independent with ADLs -CO Lives With -- Other (Comment) Roomate (Lissy Job) -CO Receives Help From -- Friend(s) automotive parts counter person care from roommate Lissy -CO Driving -- No -CO Mode of Transportation -- Driven by others;Friends or medical transport -CO ADL Assistance -- Independent -CO Instrumental ADL (IADL) Assistance -- Needs assistance -CO Meal Prep -- Independent -CO Laundry -- Independent -CO Cleaning -- Independent -CO Shopping -- -- Roommate completes task -CO Cylinder Machine Operator -- Independent -CO Medical Management -- Independent [...] and address after me -- Josué Neff [address] [place] [address] -CO Without looking at the clock, tell [...] of care initiated -CO OT Recommendation -- Detention Facility pending further evaluation of mobility -CO [...] 72 Hours PT Evaluation Row Name 07/27/24 0894 Chart Reviewed Yes -KD Session Type Evaluation [...] walker in community only -KD Level of [place] Independent functional transfers;Independent with ambulation -KD Lives With Other (Comment) Roommate -KD Receives Help From Friend(s) Roommate available automotive parts counter person -KD Fall within the last 6 months [...] = Cosigned By Initials Name Effective Dates Estefani Jarvis, PT 10/19/19 - PT TREATMENT (Last 168 [...] Support System Friends/neighbors Anticipated discharge level of FDC health care Does the patient need discharge [...] Patient and/or family are agreeable with plan. loss prevention operations manager will continue to follow and assist with discharge planning as needed. If any further discharge needs arise, please contact the covering patient case manager. Droi Miranda MSN, RN [facility], [facility] Welding Estimator [phone] * Summary of Treatment Recommendations Non-Billable - Sonia Pina, STONEWORK SUPERVISOR - 07/28/2024 12:17 PM CDT Images from the original note were not included. Infectious Diseases Sign Off Recommendations for Patients on Jail IV Antibiotics Diagnosis: M. Avium pneumonia Retained [...] 514. Follow Up Plan: fax results to [phone], follow up with Dr. Pinzon in 3 wks, After discharge additional questions can be directed to the clinic at [phone], Patient has been educated about the risks [...] BE FAXED TO INFECTIOUS DISEASE CLINIC AT: [phone] PLEASE CALL THE INFECTIOUS DISEASES CLINIC WITH ANY QUESTIONS AT: [phone] Leaving the Hospital on IV Antibiotics Information [...] with antibacterial soap and use alcohol-based hand clerk general office before touching yourcatheter or changing wound dressings. [...] Emergency Room. Contact Infectious Diseases Clinic: Toll-free: [phone] Hospital ID Doctor: Bharti Whitley [facility] Infectious Diseases Offices [facility] [address], [address] [place] [address] Patient parking available north of [facility] General Infectious Diseases and LVAD Offices [facility] [address] [place] [address] [facility] LVAD ID Clinic [address], [address] [place] [address] * Plan of Care - Snow Alfonso [...] Disease Team: Transplant Contact Information: Please see [facility] Treatment Team listing for up-to-date contact information. [...] mg 400 mg oral Every 8 hours 07/23/24231824 0000 voriCONAZOLE (VFEND) tablet 200 mg 200 [...] provided images may or may not representthe [place] source data set and thus may contain [...] only and have not been reviewed by [facility] Radiology. There will be no report generated by a [facility] Radiologist. No results found. Assessment/Plan Patient [...] arranged?: No (07/27/24 1551) Health Insurance Coverage: [facility] Medicare Solutions and [place] Medicaid Prescription Coverage: Yes Pharmacy: [id number] - [place] [address] AT [address] OF [address] [place] [address] [facility] [place] [facility] [place] - [address] [place] [address] Primary Care Provider: Kirt Lindsay DO Prior to Admission: Functional Status: Minimal assist with ADLs Primary Caregiver: Self Support System: Other (Comment) (Room mate Billy Kaiser provides support [phone]) Home Care Services: No Outpatient Services: No Durable Medical Equipment: Walker (wheeled), Oxygen Oxygen Detail: 4L/NC Provider is [place] Home Patient Living Arrangements: Friends Type of Residence: Private residence Steps in home?: Yes, Outside of home Number of steps outside: 5 steps Medication management: Independent (07/27/24 155) Potential discharge needs include: Home Health: None (07/27/24 1551) OP Services: No Dialysis: No Behavioral Health [...] Collaboration with Patient, Provider, Direct Care Nurse, Shoe Clerk, and other members of theHealth Care Team to assure needed interventions completed. 2. Return patient to optimal level of self-care post discharge. 3. Welding Estimator will follow for Discharge Planning - interventions as needed 4. Anticipated level of care at discharge 5. Planned Discharge Disposition Anaid D. Custer, RN * Plan of Care - Aaron [...] and injury. Report was given to the [facility] nurse. Transferred the patient to [facility] via stretcher with all his belongings in [...] 200 mg oral 2 times daily 07/23/242318 Vitals: 24hr Min/Max: Temp Min: 36.4 ??C (97.6 ??F) Max: 36.8 ??C (98.2 ??F) Pulse Min: 82 Max: 94 BP Min: 122/77 Max: 128/79 Resp Min: 17 Max: 18 SpO2 Min: 97 % Max: 100 % Most Recent : Vitals: 09/07/24 0800 BP: 122/77 Pulse: 94 Resp: 17 [...] provided images may or may not representthe [place] source data set and thus may contain [...] only and have not been reviewed by [facility] Radiology. There will be no report generated by a [facility] Radiologist. CT Body Outside Consult Result [...] provided images may or may not representthe [place] source data set and thus may contain [...] only and have not been reviewed by [facility] Radiology. There will be no report generated by a [facility] Radiologist. Assessment/Plan Patient is a 58 [...] Outcome: Progressing * Plan of Care - JayneMaren - 07/24/2024 11:26 PM CDT Problem: Lack [...] devices as needed * Initial Assessments - Dom Murphy MSW - 07/24/2024 2:39 PM CDT Social Work [...] : Yes-DPOA DPOA Name/Phone: (Partner) Lissy Kaiser ([phone]) Employment Status: Disabled Payor Source: Medicare advantage [...] Life Partner Name/Contact Information: (Partner) Lissy Job ([phone]) Children Name/Contact Information: (Son) Bri Robert Bowman (#UNKNOWN) Participation from Patient's Support System: Patient lives with Lissy who provides support as needed Do you have a Synagogue Preference or Affiliation?: Yes Preference/Affiliation : Christaian Are there any Synagogue Practices that are important to maintain while [...] stability, Financial stability 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 Current address is [address] [facility] [address]. Current phone number is [phone] (home) . SW informed patient of chart review and asked patient to confirm information. SW met with patient at bedside. Patient amenable to assessment and presented as A&Ox4 with appropriate affect. Patient had appropriate eye contact and was good historian. Pt identified his partner Lissy as a strong support systems and acting asphalt mixing machine operator at home. Pt reported Lissy will assist with his transportation needs. Pt did not identify any concerns with housing, financial strain, or food insecurity. Pt has the insurance [facility] Medicare. Social work confirmed with patient that he does have a DPOA. Patient verified their DPOA/surrogate decision-maker (Partner) Lissy Kaiser ([phone]) as the point of contact if needed. [...] 0.585 days Social Work to work with [facility] for discharge planning and social concerns as needed. Dom Murphy LMSW Please see [facility] Treatment Team for contact information. * Plan [...] mg, oral, Daily flash glucose scanning reader (ClariFI Evaristo 2 [place]) [facility] Use to test blood glucose continuously flash glucose sensor (OrtheraStyle Evaristo 2 Sensor) kit Change sensor every 14 days mmlldulzffl-geapahxeb-vpjxycty (Trelegy Ellipta) 200-62.5-25 mcg inhaler 1 puff, inhalation, Daily gabapentin (NEURONTIN) 300 mg capsule TAKE ONE CAPSULE BY MOUTH FOUR TIMES DAILY @ 1ZM-8DQ-3HS-9PM guaiFENesin ER (MUCINEX) 600 mg, oral, 2 [...] stay * Assessment & Plan Note - Wilbert Strickland MD - 07/24/2024 12:17 AM CDT [...] [place] [address] - repeat TTE 07/24: LVEF 30%, moderate [...] of worsening SOB. Presented [facility] ED 07/19 for SOB and treated for COPD exac with pred course. Presented to [employer] on 07/21 for worsening SOB. CXR and [...] Medicine Call Participants Referring hospital or service: [facility] ED Referring provider: ED PA Clinical [...] of progressive dyspnea after recent admit at [place] for pancreatitis,?PNA. Placed on bipap in ED [...] chronic respiratory failure Outcome Primary service: Med [place] Urgency: Routine Information reflected above was gathered [...] Diagnosis Comments POCT GLUCOSE DEVICE Routine 08/02/2024 8:02 AM CDT POCT GLUCOSE DEVICE Routine 08/02/2024 [...] DE VICE Final Result Performing Organization Address City/[facility]/ZIP Co de Phone Number [facility] [place] [address] * (ABNORMAL) POCT glucose (08/02/2024 5:49 AM CDT) Glucose, POC 266(H) 70 - 199 mg/dL Blood 08/02/2024 5:49 AM CDT 08/02/2024 5:49 AM CDT us Cruz Pederson MD LAB POCT ORDERABLES - DE VICE Final Result [facility] [place] [address] * eGFR (08/02/2024 1:26 AM CDT) eGFR [...] Caroline BERNAL LAB BLOOD ORDERABLES nal Result [facility] Department of Laboratories [place], [place] [id number] * (ABNORMAL) Differential, auto (08/02/2024 1:26 AM CDT) Neutrophil abs 6.6(H) 1.5 - 6.5 K/cumm Imm gran abs 0.1 0.0 - 0.1 K/cumm [facility] Lymphocyte abs 2.1 0.8 - 3.3 K/cumm [facility] Monocyte abs 1.9(H) 0.2 - 0.8 K/cumm [facility] Eosinophil abs 0.3 0.0 - 0.5 K/cumm [facility] Basophil abs 0.0 0.0 - 0.1 K/cumm [facility] Neutrophil pct 60.0 % [facility] Comment: Interpretive Data Percent cell count reference ranges are not reported, since discordance with absolute values may lead to misinterpretation of CBC data. Current Interpretive Data was last revised on 2018. Imm gran pct 0.5 % [facility] Comment: Interpretive Data Percent cell count reference ranges are not reported, since discordance with absolute values may lead to misinterpretation of CBC data. Current Interpretive Data was last revised on 2018. Lymphocyte pct 19.4 % [facility] Comment: Interpretive Data Percent cell count reference ranges are not reported, since discordance with absolute values may lead to misinterpretation of CBC data. Current Interpretive Data was last revised on 2018. Monocyte pct 17.3 % [facility] Comment: Interpretive Data Percent cell count reference ranges are not reported, since discordance with absolute values may lead to misinterpretation of CBC data. Current Interpretive Data was last revised on 2018. Eosinophil pct 2.6 % [facility] Comment: Interpretive Data Percent cell count reference ranges are not reported, since discordance with absolute values may lead to misinterpretation of CBC data. Current Interpretive Data was last revised on 2018. Basophil pct 0.2 % [facility] Comment: Interpretive Data Percent cell count reference ranges are not reported, since discordance with absolute values may lead to misinterpretation of CBC data. Current Interpretive Data was last revised on 2018. Blood 08/02/2024 1:26 AM CDT 08/02/2024 1:43 AM CDT us Caroline BERNAL LAB BLOOD ORDERABLES Fi nal Result [facility] Department of Laboratories [place] [address] * (ABNORMAL) Comprehensive metabolic panel (08/02/2024 1:26 AM CDT) Sodium 133(L) 135 - 145 mmol/L Potassium, pl 4.6 3.3 - 4.9 mmol/L [facility] Chloride 95(L) 97 - 110 mmol/L [facility] CO2 34(H) 22 - 32 mmol/L [facility] Anion gap 4 2 - 15 mmol/L [facility] BUN 24 6 - 25 mg/dL [facility] Creatinine 0.82 0.80 - 1.30 mg/dL [facility] Glucose 234(H) 70 - 199 mg/dL [facility] Comment: Interpretive Data Fasting glucose [...] 2022. Calcium 8.8 8.5 - 10.3 mg/dL [facility] Bilirubin, total <0.2 0.1 - 1.2 mg/dL [facility] Comment:Repeated and Verifie d Protein, pl 6.5 6.5 - 8.5 g/dL [facility] Albumin 3.0(L) 3.5 - 5.0 g/dL [facility] Alk phos 178(H) 40 - 130 Units/L [facility] ALT 28 7 - 55 Units/L [facility] AST 43 10 - 50 Units/L [facility] Blood 08/02/2024 1:26 AM CDT 08/02/2024 1:43 AM CDT us Caroline BERNAL LAB BLOOD ORDERABLES Fi nal Result [facility] [place] [address] * (ABNORMAL) CBC with auto differential (08/02/2024 1:26 AM CDT) WBC 11.0(H) 3.8 - 9.9 K/cumm Hgb 9.3(L) 13.0 - 17.5 g/dL [facility] Hct 28.3(L) 38.9 - 50.3 % [facility] Plt 308 150 - 400 K/cumm [facility] MPV 10.7 9.1 - 12.3 fL [facility] RBC 2.76(L) 4.30 - 5.80 M/cumm [facility] MCV 102.5(H) 81.3 - 96.4 fL [facility] MCH 33.7(H) 27.1 - 33.3 pg [facility] MCHC 32.9 32.3 - 35.7 g/dL [facility] RDW CV 20.6(H) 11.1 - 14.9 % [facility] RDW SD 74.6(H) 35.7 - 48.1 fL [facility] NRBC abs 0.04(H) 0.00 - 0.01 K/cumm [facility] Blood 08/02/2024 1:26 AM CDT 08/02/2024 1:43 AM CDT Caroline BERNAL LAB BLOOD ORDERABLES Fi nal Result Performing Organization Address [facility] Co de Phone Number [facility] [place] [address] * Magnesium (08/02/2024 1:26 AM CDT) Pathologist [facility] Magnesium 1.6 1.4 - 2.5 mg/dL Blood 08/02/2024 1:26 AM CDT 08/02/2024 1:43 AM CDT Caroline BERNAL LAB BLOOD ORDERABLES Fi nal Result Performing Organization Address City/[facility]/ZIP Co de Phone Number [facility] [place] [address] * POCT glucose (08/01/2024 8:36 PM CDT) Glucose, POC 70 70 - 199 mg/dL Blood 08/01/2024 8:36 PM CDT 08/01/2024 8:36 PM CDT Cruz Pederson MD LAB POCT ORDERABLES - DE VICE Final Result Performing Organization Address City/[facility]/ZIP Co de Phone Number [facility] [place] [address] * (ABNORMAL) POCT glucose (08/01/2024 5:01 PM CDT) Glucose, POC 236(H) 70 - 199 mg/dL Blood 08/01/2024 5:01 PM CDT 08/01/2024 5:01 PM CDT Cruz Pederson MD LAB POCT ORDERABLES - DE VICE Final Result Performing Organization Address [facility] Co de Phone Number [facility] [place] [address] * POCT glucose (08/01/2024 1:22 PM CDT) Glucose, POC 144 70 - 199 mg/dL Comment:Glu2: RN/MD Notified Glucose comment 1 Glu2: RN/MD Notified [facility] Blood 08/01/2024 1:22 PM CDT 08/01/2024 1:22 PM CDT Cruz Pederson MD LAB POCT ORDERABLES - DE VICE Final Result Performing Organization Address City/[facility]/ZIP Co de Phone Number [facility] [place] [address] * (ABNORMAL) POCT glucose (08/01/2024 7:12 AM CDT) [facility] Glucose, POC 204(H) 70 - 199 mg/dL Comment:Glu2: RN/MD Notified Glucose comment 1 Glu2: RN/MD Notified [facility] Blood 08/01/2024 7:12 AM CDT 08/01/2024 7:12 AM CDT Cruz Pederson MD LAB POCT ORDERABLES - DE VICE Final Result Performing Organization Address [facility] Phone Number [facility] [place] [address] * Phosphorus (08/01/2024 12:54 AM CDT) [facility] Phosphorus, pl 3.8 2.3 - 4.5 mg/dL Blood 08/01/2024 12:5 4 AM CDT 08/01/2024 1:45 AM CDT Cruz Pederson MD LAB BLOOD ORDERABLES Fin al Result Performing Organization Address [facility] Phone Number [facility] [place] [address] * eGFR (08/01/2024 12:54 AM CDT) [facility] eGFR >90 >=60 mL/min/1. 73 m2 [...] BERNAL LAB BLOOD ORDERABLES Fi nal Result [facility] [place] [address] * (ABNORMAL) Differential, auto (08/01/2024 12:54 AM CDT) Pathologist [facility] Neutrophil abs 5.5 1.5 - 6.5 K/cumm Imm gran abs 0.1 0.0 - 0.1 K/cumm [facility] Lymphocyte abs 2.8 0.8 - 3.3 K/cumm [facility] Monocyte abs 1.9(H) 0.2 - 0.8 K/cumm [facility] Eosinophil abs 0.3 0.0 - 0.5 K/cumm [facility] Basophil abs 0.0 0.0 - 0.1 K/cumm [facility] Neutrophil pct 51.4 % [facility] Comment: Interpretive Data Percent cell count reference ranges are not reported, since discordance with absolute values may lead to misinterpretation of CBC data. Current Interpretive Data was last revised on 2018. Imm gran pct 0.8 % [facility] Comment: Interpretive Data Percent cell count reference ranges are not reported, since discordance with absolute values may lead to misinterpretation of CBC data. Current Interpretive Data was last revised on 2018. Lymphocyte pct 26.5 % [facility] Comment: Interpretive Data Percent cell count reference ranges are not reported, since discordance with absolute values may lead to misinterpretation of CBC data. Current Interpretive Data was last revised on 2018. Monocyte pct 18.3 % [facility] Comment: Interpretive Data Percent cell count reference ranges are not reported, since discordance with absolute values may lead to misinterpretation of CBC data. Current Interpretive Data was last revised on 2018. Eosinophil pct 2.8 % [facility] Comment: Interpretive Data Percent cell count reference ranges are not reported, since discordance with absolute values may lead to misinterpretation of CBC data. Current Interpretive Data was last revised on 2018. Basophil pct 0.2 % [facility] Comment: Interpretive Data Percent cell count reference ranges are not reported, since discordance with absolute values may lead to misinterpretation of CBC data. Current Interpretive Data was last revised on 2018. Blood 08/01/2024 12:5 4 AM CDT 08/01/2024 1:45 AM CDT us Caroline BERNAL LAB BLOOD ORDERABLES nal Result [facility] [place] [address] * (ABNORMAL) Comprehensive metabolic panel (08/01/2024 12:54 AM CDT) Sodium 134(L) 135 - 145 mmol/L Potassium, pl 5.4(H) 3.3 - 4.9 mmol/L [facility] Chloride 95(L) 97 - 110 mmol/L [facility] CO2 34(H) 22 - 32 mmol/L [facility] Anion gap 5 2 - 15 mmol/L [facility] BUN 25 6 - 25 mg/dL [facility] Creatinine 0.92 0.80 - 1.30 mg/dL [facility] Glucose 166 70 - 199 mg/dL [facility] Comment: Interpretive Data Fasting glucose [...] 2022. Calcium 8.8 8.5 - 10.3 mg/dL [facility] Bilirubin, total 0.2 0.1 - 1.2 mg/dL [facility] Protein, pl 6.4(L) 6.5 - 8.5 g/dL [facility] Albumin 3.2(L) 3.5 - 5.0 g/dL [facility] Alk phos 138(H) 40 - 130 Units/L [facility] ALT 28 7 - 55 Units/L [facility] AST 36 10 - 50 Units/L [facility] Blood 08/01/2024 12:5 4 AM CDT 08/01/2024 1:45 AM CDT us Caroline BERNAL LAB BLOOD ORDERABLES Fi nal Result [facility] [place] [address] * (ABNORMAL) CBC with auto differential (08/01/2024 12:54 AM CDT) WBC 10.6(H) 3.8 - 9.9 K/cumm Hgb 9.1(L) 13.0 - 17.5 g/dL [facility] Hct 28.5(L) 38.9 - 50.3 % [facility] Plt 319 150 - 400 K/cumm [facility] MPV 11.0 9.1 - 12.3 fL [facility] RBC 2.75(L) 4.30 - 5.80 M/cumm [facility] MCV 103.6(H) 81.3 - 96.4 fL [facility] MCH 33.1 27.1 - 33.3 pg [facility] MCHC 31.9(L) 32.3 - 35.7 g/dL [facility] RDW CV 21.0(H) 11.1 - 14.9 % [facility] RDW SD 78.4(H) 35.7 - 48.1 fL [facility] NRBC abs 0.04(H) 0.00 - 0.01 K/cumm [facility] Blood 08/01/2024 12:5 4 AM CDT 08/01/2024 1:45 AM CDT Caroline BERNAL LAB BLOOD ORDERABLES Fi nal Result [facility] [place] [address] * Magnesium (08/01/2024 12:54 AM CDT) Magnesium 1.8 1.4 - 2.5 mg/dL Blood 08/01/2024 12:5 4 AM CDT 08/01/2024 1:45 AM CDT Caroline BERNAL LAB BLOOD ORDERABLES Fi nal Result Performing Organization Address City/[facility]/ZIP Co de Phone Number [facility] [place] [address] * POCT glucose (07/31/2024 9:24 PM CDT) Glucose, POC 171 70 - 199 mg/dL Blood 07/31/2024 9:24 PM CDT 07/31/2024 9:24 PM CDT Cruz Pederson MD LAB POCT ORDERABLES - DE VICE Final Result Performing Organization Address City/[facility]/ZIP Co de Phone Number [facility] [place] [address] * (ABNORMAL) POCT glucose (07/31/2024 6:09 PM CDT) Glucose, POC 222(H) 70 - 199 mg/dL Comment:Glu2: RN/MD Notified Glucose comment 1 Glu2: RN/MD Notified [facility] Blood 07/31/2024 6:09 PM CDT 07/31/2024 6:09 PM CDT us Cruz Pederson MD LAB POCT ORDERABLES - DE VICE Final Result [facility] [place] [address] * XR Chest 1 View (07/31/2024 4:32 [...] I high-sensitivity (07/31/2024 4:05 PM CDT) Pathologist [facility] Trop I hs 11 <=35 ng/L Comment: Interpretive Data For further hscTnI resources including the diagnostic algorithm and an aid in interpretation, copy and paste this link: [email or web address] Current Interpretive Data last revised 2020. Blood 07/31/2024 4:05 PM CDT 07/31/2024 4:24 PM CDT us Francis Gordon MD LAB BLOOD ORDERABLES Final Re sult Performing Organization Address City/[facility]/ZIP Co de Phone Number [facility] [place] [address] * POCT glucose (07/31/2024 12:27 PM CDT) Pathologist [facility] Glucose, POC 105 70 - 199 mg/dL Comment:Glu2: RN/MD Notified Glucose comment 1 Glu2: RN/MD Notified [facility] Blood 07/31/2024 12:2 7 PM CDT 07/31/2024 12:27 PM CDT us Cruz Pederson MD LAB POCT ORDERABLES - DE VICE Final Result Performing Organization Address City/[facility]/ZIP Co de Phone Number [facility] [place] [address] * (ABNORMAL) POCT glucose (07/31/2024 7:23 AM CDT) Glucose, POC 356(H) 70 - 199 mg/dL Comment:Glu2: RN/MD Notified Glucose comment 1 Glu2: RN/MD Notified [facility] Blood 07/31/2024 7:23 AM CDT 07/31/2024 7:23 AM CDT us Cruz Pederson MD LAB POCT ORDERABLES - DE VICE Final Result [facility] [place] [address] * eGFR (07/31/2024 12:56 AM CDT) eGFR [...] BERNAL LAB BLOOD ORDERABLES Fi nal Result [facility] [place] [address] * (ABNORMAL) Differential, auto (07/31/2024 12:56 AM CDT) Pathologist [facility] Neutrophil abs 5.6 1.5 - 6.5 K/cumm Imm gran abs 0.1 0.0 - 0.1 K/cumm [facility] Lymphocyte abs 2.7 0.8 - 3.3 K/cumm [facility] Monocyte abs 1.7(H) 0.2 - 0.8 K/cumm [facility] Eosinophil abs 0.3 0.0 - 0.5 K/cumm [facility] Basophil abs 0.0 0.0 - 0.1 K/cumm [facility] Neutrophil pct 54.1 % [facility] Comment: Interpretive Data Percent cell count reference ranges are not reported, since discordance with absolute values may lead to misinterpretation of CBC data. Current Interpretive Data was last revised on 2018. Imm gran pct 0.6 % [facility] Comment: Interpretive Data Percent cell count reference ranges are not reported, since discordance with absolute values may lead to misinterpretation of CBC data. Current Interpretive Data was last revised on 2018. Lymphocyte pct 25.9 % [facility] Comment: Interpretive Data Percent cell count reference ranges are not reported, since discordance with absolute values may lead to misinterpretation of CBC data. Current Interpretive Data was last revised on 2018. Monocyte pct 16.7 % [facility] Comment: Interpretive Data Percent cell count reference ranges are not reported, since discordance with absolute values may lead to misinterpretation of CBC data. Current Interpretive Data was last revised on 2018. Eosinophil pct 2.5 % [facility] Comment: Interpretive Data Percent cell count reference ranges are not reported, since discordance with absolute values may lead to misinterpretation of CBC data. Current Interpretive Data was last revised on 2018. Basophil pct 0.2 % [facility] Comment: Interpretive Data Percent cell count reference ranges are not reported, since discordance with absolute values may lead to misinterpretation of CBC data. Current Interpretive Data was last revised on 2018. Blood 07/31/2024 12:5 6 AM CDT 07/31/2024 1:55 AM CDT Caroline BERNAL LAB BLOOD ORDERABLES Fi nal Result [facility] [place] [address] * (ABNORMAL) Comprehensive metabolic panel (07/31/2024 12:56 AM CDT) Sodium 134(L) 135 - 145 mmol/L Potassium, pl 5.1(H) 3.3 - 4.9 mmol/L [facility] Chloride 92(L) 97 - 110 mmol/L [facility] CO2 35(H) 22 - 32 mmol/L [facility] Anion gap 7 2 - 15 mmol/L [facility] BUN 23 6 - 25 mg/dL [facility] Creatinine 0.86 0.80 - 1.30 mg/dL [facility] Glucose 146 70 - 199 mg/dL [facility] Comment: Interpretive Data Fasting glucose [...] 2022. Calcium 9.0 8.5 - 10.3 mg/dL [facility] Bilirubin, total 0.2 0.1 - 1.2 mg/dL [facility] Protein, pl 6.4(L) 6.5 - 8.5 g/dL [facility] Albumin 3.3(L) 3.5 - 5.0 g/dL [facility] Alk phos 116 40 - 130 Units/L [facility] ALT 24 7 - 55 Units/L [facility] AST 35 10 - 50 Units/L [facility] Blood 07/31/2024 12:5 6 AM CDT 07/31/2024 1:55 AM CDT Caroline BERNAL LAB BLOOD ORDERABLES Fi nal Result [facility] [place] [address] * (ABNORMAL) CBC with auto differential (07/31/2024 12:56 AM CDT) WBC 10.4(H) 3.8 - 9.9 K/cumm Hgb 8.9(L) 13.0 - 17.5 g/dL [facility] Hct 27.0(L) 38.9 - 50.3 % [facility] Plt 304 150 - 400 K/cumm [facility] MPV 11.1 9.1 - 12.3 fL [facility] RBC 2.61(L) 4.30 - 5.80 M/cumm [facility] MCV 103.4(H) 81.3 - 96.4 fL [facility] MCH 34.1(H) 27.1 - 33.3 pg [facility] MCHC 33.0 32.3 - 35.7 g/dL [facility] RDW CV 20.4(H) 11.1 - 14.9 % [facility] RDW SD 77.3(H) 35.7 - 48.1 fL [facility] NRBC abs 0.05(H) 0.00 - 0.01 K/cumm [facility] Blood 07/31/2024 12:5 6 AM CDT 07/31/2024 1:55 AM CDT Caroline BERNAL LAB BLOOD ORDERABLES Fi nal Result Performing Organization Address City/[facility]/ZIP Co de Phone Number [facility] [place] [address] * Magnesium (07/31/2024 12:56 AM CDT) Magnesium 1.7 1.4 - 2.5 mg/dL Blood 07/31/2024 12:5 6 AM CDT 07/31/2024 1:55 AM CDT Caroline BERNAL LAB BLOOD ORDERABLES Fi nal Result Performing Organization Address [facility] Co de Phone Number [facility] [place] [address] * (ABNORMAL) POCT glucose (07/30/2024 9:05 PM CDT) Glucose, POC 230(H) 70 - 199 mg/dL Blood 07/30/2024 9:05 PM CDT 07/30/2024 9:05 PM CDT Cruz Pederson MD LAB POCT ORDERABLES - DE VICE Final Result Performing Organization Address City/[facility] Co de Phone Number [facility] [place] [address] * (ABNORMAL) POCT glucose (07/30/2024 5:52 PM CDT) Glucose, POC 211(H) 70 - 199 mg/dL Blood 07/30/2024 5:52 PM CDT 07/30/2024 5:52 PM CDT Cruz Pederson MD LAB POCT ORDERABLES - DE VICE Final Result Performing Organization Address City/[facility] Co de Phone Number [facility] [place] [address] * POCT glucose (07/30/2024 11:56 AM CDT) Glucose, POC 164 70 - 199 mg/dL Blood 07/30/2024 11:5 6 AM CDT 07/30/2024 11:56 AM CDT Cruz Pederson MD LAB POCT ORDERABLES - DE VICE Final Result Performing Organization Address [facility] Phone Number [facility] [place] [address] * Miscellaneous Test Sendout Chemistry (07/30/2024 10:25 AM CDT) Test name Ethambutol Peak Result 1 Specimen Type: Blood Result: See scanned result in Medical Record. [facility] Blood 07/30/2024 10:2 5 AM CDT 07/30/2024 4:45 PM CDT Narrative [facility] - 08/02/2024 2:05 PM CDT 1.7 mls serum frozen Cruz Pederson MD LAB BLOOD ORDERABLES Fin al Result Performing Organization Address [facility] Phone Number [facility] [place] [address] * Tacrolimus level random (07/30/2024 8:02 AM CDT) Pathologist [facility] Tacrolimus random 1.2 ng/mL Comment: Interpretive Data Testing performed by liquid chromatography-tandem mass spectrometry. ??Therapeutic concentrations vary depending on type of transplanted organ and time elapsed since transplant. ??Typical trough concentrations range from 5-15 ng/mL. ??This test was developed and its performance characteristics determined by the [facility] consistent with CLIA requirements. ??This test has not been cleared or approved by the [place] Food and Drug administration. ??Current interpretive data last reviewed 2020. Blood 07/30/2024 8:02 AM CDT 07/30/2024 9:15 AM CDT us Caroline BERNAL LAB BLOOD ORDERABLES Fi nal Result Performing Organization Address [facility]/ZIP Co de Phone Number [facility] [place] [address] * (ABNORMAL) POCT glucose (07/30/2024 7:14 AM CDT) Glucose, POC 300(H) 70 - 199 mg/dL Blood 07/30/2024 7:14 AM CDT 07/30/2024 7:14 AM CDT us Cruz Pederson MD LAB POCT ORDERABLES - DE VICE Final Result Performing Organization Address [facility] Phone Number [facility] [place] [address] * eGFR (07/29/2024 11:57 PM CDT) eGFR [...] BERNAL LAB BLOOD ORDERABLES Fi nal Result [facility] [place] [address] * (ABNORMAL) Differential, auto (07/29/2024 11:57 PM CDT) Neutrophil abs 7.1(H) 1.5 - 6.5 K/cumm Imm gran abs 0.1 0.0 - 0.1 K/cumm [facility] Lymphocyte abs 2.9 0.8 - 3.3 K/cumm [facility] Monocyte abs 1.9(H) 0.2 - 0.8 K/cumm [facility] Eosinophil abs 0.3 0.0 - 0.5 K/cumm [facility] Basophil abs 0.0 0.0 - 0.1 K/cumm [facility] Neutrophil pct 57.6 % [facility] Comment: Interpretive Data Percent cell count reference ranges are not reported, since discordance with absolute values may lead to misinterpretation of CBC data. Current Interpretive Data was last revised on 2018. Imm gran pct 0.7 % [facility] Comment: Interpretive Data Percent cell count reference ranges are not reported, since discordance with absolute values may lead to misinterpretation of CBC data. Current Interpretive Data was last revised on 2018. Lymphocyte pct 23.5 % [facility] Comment: Interpretive Data Percent cell count reference ranges are not reported, since discordance with absolute values may lead to misinterpretation of CBC data. Current Interpretive Data was last revised on 2018. Monocyte pct 15.7 % [facility] Comment: Interpretive Data Percent cell count reference ranges are not reported, since discordance with absolute values may lead to misinterpretation of CBC data. Current Interpretive Data was last revised on 2018. Eosinophil pct 2.4 % [facility] Comment: Interpretive Data Percent cell count reference ranges are not reported, since discordance with absolute values may lead to misinterpretation of CBC data. Current Interpretive Data was last revised on 2018. Basophil pct 0.1 % [facility] Comment: Interpretive Data Percent cell count reference ranges are not reported, since discordance with absolute values may lead to misinterpretation of CBC data. Current Interpretive Data was last revised on 2018. Blood 07/29/2024 11:5 7 PM CDT 07/30/2024 12:15 AM CDT Caroline BERNAL LAB BLOOD ORDERABLES Fi nal Result [facility] [place] [address] * (ABNORMAL) Comprehensive metabolic panel (07/29/2024 11:57 PM CDT) Sodium 135 135 - 145 mmol/L Potassium, pl 5.3(H) 3.3 - 4.9 mmol/L [facility] Chloride 93(L) 97 - 110 mmol/L [facility] CO2 36(H) 22 - 32 mmol/L [facility] Anion gap 6 2 - 15 mmol/L [facility] BUN 23 6 - 25 mg/dL [facility] Creatinine 0.78(L) 0.80 - 1.30 mg/dL [facility] Glucose 233(H) 70 - 199 mg/dL [facility] Comment: Interpretive Data Fasting glucose [...] 2022. Calcium 8.6 8.5 - 10.3 mg/dL [facility] Bilirubin, total 0.2 0.1 - 1.2 mg/dL [facility] Protein, pl 6.0(L) 6.5 - 8.5 g/dL [facility] Albumin 3.0(L) 3.5 - 5.0 g/dL [facility] Alk phos 108 40 - 130 Units/L [facility] ALT 23 7 - 55 Units/L [facility] AST 34 10 - 50 Units/L [facility] Blood 07/29/2024 11:5 7 PM CDT 07/30/2024 12:15 AM CDT us Caroline BERNAL LAB BLOOD ORDERABLES Fi nal Result [facility] [place] [address] * (ABNORMAL) CBC with auto differential (07/29/2024 11:57 PM CDT) WBC 12.3(H) 3.8 - 9.9 K/cumm Hgb 8.7(L) 13.0 - 17.5 g/dL [facility] Hct 26.7(L) 38.9 - 50.3 % [facility] Plt 283 150 - 400 K/cumm [facility] MPV 11.2 9.1 - 12.3 fL [facility] RBC 2.63(L) 4.30 - 5.80 M/cumm [facility] MCV 101.5(H) 81.3 - 96.4 fL [facility] MCH 33.1 27.1 - 33.3 pg [facility] MCHC 32.6 32.3 - 35.7 g/dL [facility] RDW CV 20.7(H) 11.1 - 14.9 % [facility] RDW SD 76.9(H) 35.7 - 48.1 fL [facility] NRBC abs 0.08(H) 0.00 - 0.01 K/cumm [facility] Blood 07/29/2024 11:5 7 PM CDT 07/30/2024 12:15 AM CDT Caroline BERNAL LAB BLOOD ORDERABLES Fi nal Result [facility] [place] [address] * Magnesium (07/29/2024 11:57 PM CDT) Magnesium 1.4 1.4 - 2.5 mg/dL Blood 07/29/2024 11:5 7 PM CDT 07/30/2024 12:15 AM CDT Caroline BERNAL LAB BLOOD ORDERABLES Fi nal Result Performing Organization Address City/[facility]/ZIP Co de Phone Number [facility] [place] [address] * POCT glucose (07/29/2024 8:37 PM CDT) Glucose, POC 180 70 - 199 mg/dL Blood 07/29/2024 8:37 PM CDT 07/29/2024 8:37 PM CDT Cruz Pederson MD LAB POCT ORDERABLES - DE VICE Final Result Performing Organization Address City/[facility]/ZIP Co de Phone Number [facility] [place] [address] * POCT glucose (07/29/2024 5:05 PM CDT) Glucose, POC 198 70 - 199 mg/dL Blood 07/29/2024 5:05 PM CDT 07/29/2024 5:05 PM CDT Cruz Pederson MD LAB POCT ORDERABLES - DE VICE Final Result Performing Organization Address City/[facility] Co de Phone Number ZULEMA [facility] [place] [address] * POCT glucose (07/29/2024 11:40 AM CDT) Glucose, POC 170 70 - 199 mg/dL Blood 07/29/2024 11:4 0 AM CDT 07/29/2024 11:40 AM CDT Cruz Pederson MD LAB POCT ORDERABLES - DE VICE Final Result Performing Organization Address [facility] Phone Number [facility] [place] [address] * (ABNORMAL) Amikacin level peak (07/29/2024 10:46 AM CDT) Amikacin peak 47.2(H) 10.0 - 35.0 mcg/mL Comment: Repeated on dilution. Interpretive Data Therapeutic Range: UTI: 10-15 mcg/mL Systemic illness: 20-25 mcg/mL Sepsis: 25-30 mcg/mL Mycobacterial infections: 25-35 mcg/mL (daily dosing) or 65-80 mcg/mL (three times/week dosing) Current interpretive data was last revised on 21. Testing performed by: [facility], [place]., [address] Blood 07/29/2024 10:4 6 AM CDT 07/29/2024 11:23 AM CDT Narrative [facility] - 07/29/2024 12:56 PM CDT Please obtain 30 minutes after completion of the amikacin infusion Bony Ochoa MD LAB BLOOD ORDERABLES Ed ited Result - Final Performing Organization Address [facility] Co de Phone Number ZULEMA [facility] [place] [address] * ECG 12 lead (07/29/2024 9:55 AM CDT) [facility] Ventricular Rate EKG/Min 83 BPM [facility] Atrial Rate [address] [facility] AZ-Interval (MSEC) [address] [facility] QRS-Interval (MSEC) [address] [facility] QT-Interval (MSEC) [address] [facility] QTc [address] [facility] P Dyer [address] [facility] R Dyer [address] [facility] T Dyer [address] [facility] Diagnosis Normal sinus rhythm Rightward axis Pulmonary disease pattern ST & T wave abnormality, consider inferolateral ischemia Prolonged QT Abnormal ECG Confirmed by Sunil PIERCE [facility] ([id number]) on 07/30/2024 3:01:[address] [facility] 07/29/2024 9:55 AM CDT 07/30/2024 3:01 PM CDT us Francis Gordon MD ECG ORDERABLES Final Result [facility] * Lactate, whole blood (07/29/2024 9:08 AM CDT) [facility] Lactate, bld 1.2 0.7 - 2.0 mmol/L Blood 07/29/2024 9:08 AM CDT 07/29/2024 9:29 AM CDT us Francis Gordon MD LAB BLOOD ORDERABLES Final Re sult [facility] [place] [address] * Amikacin level trough (07/29/2024 9:08 AM CDT) [facility] Amikacin trough <1.0 0.0 - 7.9 mcg/mL Comment: Repeated and Verified Interpretive Data Therapeutic Range: ?UTI: <4.0 mcg/mL ?Systemic illness: <4.0 mcg/mL ?Sepsis: <8.0 mcg/mL ?Mycobacterial infections: <4.0 mcg/mL(daily dosing)or ?<1.0 mcg/mL(three times/week dosing) Current Interpretive Data was last revised on 2021. Testing performed by: [facility], [place]., [address] Blood 07/29/2024 9:08 AM CDT 07/29/2024 10:39 AM CDT Narrative [facility] - 07/29/2024 12:03 PM CDT Please draw prior to administering amikacin Bony Ochoa MD LAB BLOOD ORDERABLES Fi nal Result Performing Organization Address [facility] Co de Phone Number [facility] [place] [address] * (ABNORMAL) POCT glucose (07/29/2024 7:29 AM CDT) Pathologist [facility] Glucose, POC 274(H) 70 - 199 mg/dL Blood 07/29/2024 7:29 AM CDT 07/29/2024 7:29 AM CDT Cruz Pederson MD LAB POCT ORDERABLES - DE VICE Final Result Performing Organization Address [facility] [place] [address] * eGFR (07/28/2024 10:21 PM CDT) eGFR [...] BERNAL LAB BLOOD ORDERABLES Fi nal Result [facility] [place] [address] * (ABNORMAL) Differential, auto (07/28/2024 10:21 PM CDT) Neutrophil abs 10.4(H) 1.5 - 6.5 K/cumm Imm gran abs 0.1 0.0 - 0.1 K/cumm [facility] Lymphocyte abs 2.2 0.8 - 3.3 K/cumm [facility] Monocyte abs 1.8(H) 0.2 - 0.8 K/cumm [facility] Eosinophil abs 0.4 0.0 - 0.5 K/cumm [facility] Basophil abs 0.0 0.0 - 0.1 K/cumm [facility] Neutrophil pct 69.7 % [facility] Comment: Interpretive Data Percent cell count reference ranges are not reported, since discordance with absolute values may lead to misinterpretation of CBC data. Current Interpretive Data was last revised on 2018. Imm gran pct 0.6 % [facility] Comment: Interpretive Data Percent cell count reference ranges are not reported, since discordance with absolute values may lead to misinterpretation of CBC data. Current Interpretive Data was last revised on 2018. Lymphocyte pct 14.9 % [facility] Comment: Interpretive Data Percent cell count reference ranges are not reported, since discordance with absolute values may lead to misinterpretation of CBC data. Current Interpretive Data was last revised on 2018. Monocyte pct 11.8 % [facility] Comment: Interpretive Data Percent cell count reference ranges are not reported, since discordance with absolute values may lead to misinterpretation of CBC data. Current Interpretive Data was last revised on 2018. Eosinophil pct 2.9 % [facility] Comment: Interpretive Data Percent cell count reference ranges are not reported, since discordance with absolute values may lead to misinterpretation of CBC data. Current Interpretive Data was last revised on 2018. Basophil pct 0.1 % [facility] Comment: Interpretive Data Percent cell count reference ranges are not reported, since discordance with absolute values may lead to misinterpretation of CBC data. Current Interpretive Data was last revised on 2018. Blood 07/28/2024 10:2 1 PM CDT 07/28/2024 10:29 PM CDT us Caroline BERNAL LAB BLOOD ORDERABLES nal Result ZULEMA DENT [facility] [place] [address] * (ABNORMAL) Comprehensive metabolic panel (07/28/2024 10:21 PM CDT) Sodium 137 135 - 145 mmol/L Potassium, pl 5.4(H) 3.3 - 4.9 mmol/L ZULEMA DENT Comment:Hemolyzed; Potassium value may be falsely elevated by as much as 0.6-1.0 mmol/L. Suggest redraw and reanalysis. Chloride 91(L) 97 - 110 mmol/L [facility] CO2 41(H) 22 - 32 mmol/L [facility] Anion gap 5 2 - 15 mmol/L [facility] BUN 20 6 - 25 mg/dL [facility] Creatinine 0.70(L) 0.80 - 1.30 mg/dL [facility] Glucose 178 70 - 199 mg/dL [facility] Comment: Interpretive Data Fasting glucose [...] 2022. Calcium 9.1 8.5 - 10.3 mg/dL [facility] Bilirubin, total 0.2 0.1 - 1.2 mg/dL [facility] Protein, pl 6.8 6.5 - 8.5 g/dL [facility] Albumin 3.1(L) 3.5 - 5.0 g/dL [facility] Alk phos 113 40 - 130 Units/L [facility] ALT 28 7 - 55 Units/L [facility] AST 44 10 - 50 Units/L [facility] Comment:Hemolyzed; result ma y be falsely elevated Blood 07/28/2024 10:2 1 PM CDT 07/28/2024 10:30 PM CDT us Caroline BERNAL LAB BLOOD ORDERABLES Fi nal Result [facility] Department of [place], [place] [id number] * (ABNORMAL) CBC with auto differential (07/28/2024 10:21 PM CDT) WBC 15.0(H) 3.8 - 9.9 K/cumm Hgb 10.2(L) 13.0 - 17.5 g/dL [facility] Hct 31.7(L) 38.9 - 50.3 % [facility] Plt 307 150 - 400 K/cumm [facility] MPV 10.9 9.1 - 12.3 fL [facility] RBC 3.06(L) 4.30 - 5.80 M/cumm [facility] MCV 103.6(H) 81.3 - 96.4 fL [facility] MCH 33.3 27.1 - 33.3 pg [facility] MCHC 32.2(L) 32.3 - 35.7 g/dL [facility] RDW CV 20.3(H) 11.1 - 14.9 % [facility] RDW SD 76.8(H) 35.7 - 48.1 fL [facility] NRBC abs 0.16(H) 0.00 - 0.01 K/cumm [facility] Blood 07/28/2024 10:2 1 PM CDT 07/28/2024 10:29 PM CDT Caroline BERNAL LAB BLOOD ORDERABLES Fi nal Result Performing Organization Address City/[facility] Co de Phone Number [facility] [place] [address] * Magnesium (07/28/2024 10:21 PM CDT) [facility] Magnesium 1.4 1.4 - 2.5 mg/dL Blood 07/28/2024 10:2 1 PM CDT 07/28/2024 10:30 PM CDT Caroline BERNAL LAB BLOOD ORDERABLES Fi nal Result Performing Organization Address City/[facility]/ZIP Co de Phone Number [facility] [place] [address] * POCT glucose (07/28/2024 5:00 PM CDT) Glucose, POC 170 70 - 199 mg/dL Blood 07/28/2024 5:00 PM CDT 07/28/2024 5:00 PM CDT Cruz Pederson MD LAB POCT ORDERABLES - DE VICE Final Result Performing Organization Address [facility] Phone Number [facility] [place] [address] * (ABNORMAL) POCT glucose (07/28/2024 11:46 AM CDT) [facility] Glucose, POC 263(H) 70 - 199 mg/dL Comment:Glu2: RN/MD Notified Glucose comment 1 Glu2: RN/MD Notified [facility] Blood 07/28/2024 11:4 6 AM CDT 07/28/2024 11:46 AM CDT Cruz Pederson MD LAB POCT ORDERABLES - DE VICE Final Result Performing Organization Address [facility] Phone Number [facility] [place] [address] * Miscellaneous Test Sendout Chemistry (07/28/2024 10:45 AM CDT) [facility] Test name Ethambutol Peak Result 1 Specimen Type: Serum Result: See scanned result in Medical Record. [facility] Blood 07/28/2024 10:4 5 AM CDT 07/28/2024 11:49 AM CDT Cruz Pederson MD LAB BLOOD ORDERABLES Fin al Result Performing Organization Address [facility] Co de Phone Number [facility] [place] [address] * Tacrolimus level random (07/28/2024 7:40 AM CDT) [facility] Tacrolimus random 1.6 ng/mL Comment: Interpretive Data Testing performed by liquid chromatography-tandem mass spectrometry. ??Therapeutic concentrations vary depending on type of transplanted organ and time elapsed since transplant. ??Typical trough concentrations range from 5-15 ng/mL. ??This test was developed and its performance characteristics determined by the [facility] consistent with CLIA requirements. ??This test has not been cleared or approved by the [place] Food and Drug administration. ??Current interpretive data last reviewed 2020. Blood 07/28/2024 7:40 AM CDT 07/28/2024 7:58 AM CDT Caroline BERNAL LAB BLOOD ORDERABLES Fi nal Result [facility] [place] [address] * (ABNORMAL) POCT glucose (07/28/2024 7:31 AM CDT) [facility] Glucose, POC 294(H) 70 - 199 mg/dL Blood 07/28/2024 7:31 AM CDT 07/28/2024 7:31 AM CDT Cruz Pederson MD LAB POCT ORDERABLES - DE VICE Final Result Performing Organization Address City/[facility] Co de Phone Number [facility] [place] [address] * eGFR (07/27/2024 8:28 PM CDT) [facility] eGFR >90 >=60 mL/min/1. 73 m2 [...] BERNAL LAB BLOOD ORDERABLES Fi nal Result [facility] [place] [address] * (ABNORMAL) Differential, auto (07/27/2024 8:28 PM CDT) Neutrophil abs 9.4(H) 1.5 - 6.5 K/cumm Imm gran abs 0.1 0.0 - 0.1 K/cumm [facility] Lymphocyte abs 1.2 0.8 - 3.3 K/cumm [facility] Monocyte abs 1.0(H) 0.2 - 0.8 K/cumm [facility] Eosinophil abs 0.3 0.0 - 0.5 K/cumm [facility] Basophil abs 0.0 0.0 - 0.1 K/cumm [facility] Neutrophil pct 78.3 % [facility] Comment: Interpretive Data Percent cell count reference ranges are not reported, since discordance with absolute values may lead to misinterpretation of CBC data. Current Interpretive Data was last revised on 2018. Imm gran pct 0.9 % [facility] Comment: Interpretive Data Percent cell count reference ranges are not reported, since discordance with absolute values may lead to misinterpretation of CBC data. Current Interpretive Data was last revised on 2018. Lymphocyte pct 10.0 % [facility] Comment: Interpretive Data Percent cell count reference ranges are not reported, since discordance with absolute values may lead to misinterpretation of CBC data. Current Interpretive Data was last revised on 2018. Monocyte pct 8.3 % [facility] Comment: Interpretive Data Percent cell count reference ranges are not reported, since discordance with absolute values may lead to misinterpretation of CBC data. Current Interpretive Data was last revised on 2018. Eosinophil pct 2.4 % [facility] Comment: Interpretive Data Percent cell count reference ranges are not reported, since discordance with absolute values may lead to misinterpretation of CBC data. Current Interpretive Data was last revised on 2018. Basophil pct 0.1 % [facility] Comment: Interpretive Data Percent cell count reference ranges are not reported, since discordance with absolute values may lead to misinterpretation of CBC data. Current Interpretive Data was last revised on 2018. Blood 07/27/2024 8:28 PM CDT 07/27/2024 8:42 PM CDT us Caroline BERNAL LAB BLOOD ORDERABLES Fi nal Result [facility] [place] [address] * POCT glucose (07/27/2024 8:28 PM CDT) Glucose, POC 129 70 - 199 mg/dL Comment:Glu2: RN/ Notified Glucose comment 1 Glu2: RN/MD Notified [facility] Blood 07/27/2024 8:28 PM CDT 07/27/2024 8:28 PM CDT us Cruz Pederson MD LAB POCT ORDERABLES - DE VICE Final Result [facility] [place] [address] * (ABNORMAL) Comprehensive metabolic panel (07/27/2024 8:28 PM CDT) Sodium 138 135 - 145 mmol/L Potassium, pl 4.7 3.3 - 4.9 mmol/L [facility] Comment:Hemolyzed; Potassium value may be falsely elevated by as much as 0.3-0.5 mmol/L. Suggest redraw and reanalysis. Chloride 90(L) 97 - 110 mmol/L [facility] CO2 42(H) 22 - 32 mmol/L [facility] Anion gap 6 2 - 15 mmol/L [facility] BUN 17 6 - 25 mg/dL [facility] Creatinine 0.72(L) 0.80 - 1.30 mg/dL [facility] Glucose 93 70 - 199 mg/dL [facility] Comment: Interpretive Data Fasting glucose [...] 2022. Calcium 9.3 8.5 - 10.3 mg/dL [facility] Bilirubin, total 0.2 0.1 - 1.2 mg/dL [facility] Protein, pl 7.3 6.5 - 8.5 g/dL [facility] Albumin 3.7 3.5 - 5.0 g/dL [facility] Alk phos 127 40 - 130 Units/L [facility] ALT 30 7 - 55 Units/L [facility] AST 38 10 - 50 Units/L [facility] Comment:Hemolyzed; result ma y be falsely elevated Blood 07/27/2024 8:28 PM CDT 07/27/2024 8:42 PM CDT Caroline BERNAL LAB BLOOD ORDERABLES Fi nal Result Performing Organization Address [facility] de Phone Number [facility] [place] [address] * (ABNORMAL) CBC with auto differential (07/27/2024 8:28 PM CDT) Pathologist [facility] WBC 12.0(H) 3.8 - 9.9 K/cumm Hgb 10.2(L) 13.0 - 17.5 g/dL [facility] Hct 31.6(L) 38.9 - 50.3 % [facility] Plt 322 150 - 400 K/cumm [facility] MPV 11.3 9.1 - 12.3 fL [facility] RBC 3.08(L) 4.30 - 5.80 M/cumm [facility] MCV 102.6(H) 81.3 - 96.4 fL [facility] MCH 33.1 27.1 - 33.3 pg [facility] MCHC 32.3 32.3 - 35.7 g/dL [facility] RDW CV 19.4(H) 11.1 - 14.9 % [facility] RDW SD 71.3(H) 35.7 - 48.1 fL [facility] NRBC abs 0.35(H) 0.00 - 0.01 K/cumm [facility] Blood 07/27/2024 8:28 PM CDT 07/27/2024 8:42 PM CDT Caroline BERNAL LAB BLOOD ORDERABLES Fi nal Result Performing Organization Address [facility]/ZIP Co de Phone Number [facility] [place] [address] * Magnesium (07/27/2024 8:28 PM CDT) Pathologist [facility] Magnesium 1.5 1.4 - 2.5 mg/dL Blood 07/27/2024 8:28 PM CDT 07/27/2024 8:42 PM CDT Caroline BERNAL LAB BLOOD ORDERABLES Fi nal Result Performing Organization Address [facility] Phone Number [facility] [place] [address] * POCT glucose (07/27/2024 5:08 PM CDT) Glucose, POC 87 70 - 199 mg/dL Blood 07/27/2024 5:08 PM CDT 07/27/2024 5:08 PM CDT Cruz Pederson MD LAB POCT ORDERABLES - DE VICE Final Result Performing Organization Address [facility] Phone Number [facility] [place] [address] * POCT glucose (07/27/2024 3:22 PM CDT) Glucose, POC 162 70 - 199 mg/dL Blood 07/27/2024 3:22 PM CDT 07/27/2024 3:22 PM CDT Cruz Pederson MD LAB POCT ORDERABLES - DE VICE Final Result Performing Organization Address [facility] Phone Number [facility] [place] [address] * (ABNORMAL) POCT glucose (07/27/2024 12:46 PM CDT) Glucose, POC 342(H) 70 - 199 mg/dL Blood 07/27/2024 12:4 6 PM CDT 07/27/2024 12:46 PM CDT Cruz Pederson MD LAB POCT ORDERABLES - DE VICE Final Result Performing Organization Address [facility] Co de Phone Number [facility] [place] [address] * (ABNORMAL) POCT glucose (07/27/2024 10:44 AM CDT) Glucose, POC 382(H) 70 - 199 mg/dL Blood 07/27/2024 10:4 4 AM CDT 07/27/2024 10:44 AM CDT Lee Morales MD LAB POCT ORDERABLES - DEVICE Fi nal Result Performing Organization Address [facility] Co de Phone Number [facility] [address] * (ABNORMAL) POCT glucose (07/27/2024 9:15 AM CDT) Glucose, POC 430(H) 70 - 199 mg/dL Blood 07/27/2024 9:15 AM CDT 07/27/2024 9:15 AM CDT Lee Morales MD LAB POCT ORDERABLES - DEVICE Fi nal Result Performing Organization Address [facility] Co de Phone Number [facility] [place] [address] * (ABNORMAL) POCT glucose (07/27/2024 7:22 AM CDT) Glucose, POC 389(H) 70 - 199 mg/dL Blood 07/27/2024 7:22 AM CDT 07/27/2024 7:22 AM CDT Lee Morales MD LAB POCT ORDERABLES - DEVICE Fi nal Result Performing Organization Address [facility] Co de Phone Number [facility] [place] [address] * eGFR (07/26/2024 9:42 PM CDT) eGFR [...] ORDERABLES Fi nal Result ZULEMA DENT [facility] [place] [address] * (ABNORMAL) Differential, auto (07/26/2024 9:42 PM CDT) Neutrophil abs 8.7(H) 1.5 - 6.5 K/cumm Imm gran abs 0.1 0.0 - 0.1 K/cumm [facility] Lymphocyte abs 1.9 0.8 - 3.3 K/cumm [facility] Monocyte abs 1.1(H) 0.2 - 0.8 K/cumm [facility] Eosinophil abs 0.3 0.0 - 0.5 K/cumm [facility] Basophil abs 0.0 0.0 - 0.1 K/cumm [facility] Neutrophil pct 71.4 % [facility] Comment: Interpretive Data Percent cell count reference ranges are not reported, since discordance with absolute values may lead to misinterpretation of CBC data. Current Interpretive Data was last revised on 2018. Imm gran pct 0.9 % [facility] Comment: Interpretive Data Percent cell count reference ranges are not reported, since discordance with absolute values may lead to misinterpretation of CBC data. Current Interpretive Data was last revised on 2018. Lymphocyte pct 15.9 % [facility] Comment: Interpretive Data Percent cell count reference ranges are not reported, since discordance with absolute values may lead to misinterpretation of CBC data. Current Interpretive Data was last revised on 2018. Monocyte pct 9.1 % [facility] Comment: Interpretive Data Percent cell count reference ranges are not reported, since discordance with absolute values may lead to misinterpretation of CBC data. Current Interpretive Data was last revised on 2018. Eosinophil pct 2.6 % [facility] Comment: Interpretive Data Percent cell count reference ranges are not reported, since discordance with absolute values may lead to misinterpretation of CBC data. Current Interpretive Data was last revised on 2018. Basophil pct 0.1 % [facility] Comment: Interpretive Data Percent cell count reference ranges are not reported, since discordance with absolute values may lead to misinterpretation of CBC data. Current Interpretive Data was last revised on 2018. Blood 07/26/2024 9:42 PM CDT 07/26/2024 10:23 PM CDT us Caroline BERNAL LAB BLOOD ORDERABLES Fi nal Result [facility] [place] [address] * (ABNORMAL) Comprehensive metabolic panel (07/26/2024 9:42 PM CDT) Sodium 134(L) 135 - 145 mmol/L Potassium, pl 4.2 3.3 - 4.9 mmol/L [facility] Chloride 90(L) 97 - 110 mmol/L [facility] CO2 41(H) 22 - 32 mmol/L [facility] Anion gap 3 2 - 15 mmol/L [facility] BUN 18 6 - 25 mg/dL [facility] Creatinine 0.79(L) 0.80 - 1.30 mg/dL [facility] Glucose 288(H) 70 - 199 mg/dL [facility] Comment: Interpretive Data Fasting glucose [...] 2022. Calcium 7.9(L) 8.5 - 10.3 mg/dL [facility] Bilirubin, total 0.2 0.1 - 1.2 mg/dL [facility] Protein, pl 5.6(L) 6.5 - 8.5 g/dL [facility] Albumin 2.7(L) 3.5 - 5.0 g/dL [facility] Alk phos 106 40 - 130 Units/L [facility] ALT 24 7 - 55 Units/L [facility] AST 25 10 - 50 Units/L [facility] Blood 07/26/2024 9:42 PM CDT 07/26/2024 10:23 PM CDT Caroline BERNAL LAB BLOOD ORDERABLES Fi nal Result [facility] [place], [place] [address] * (ABNORMAL) CBC with auto differential (07/26/2024 9:42 PM CDT) WBC 12.1(H) 3.8 - 9.9 K/cumm Hgb 9.2(L) 13.0 - 17.5 g/dL [facility] Hct 28.5(L) 38.9 - 50.3 % [facility] Plt 305 150 - 400 K/cumm [facility] MPV 11.1 9.1 - 12.3 fL [facility] RBC 2.69(L) 4.30 - 5.80 M/cumm [facility] MCV 105.9(H) 81.3 - 96.4 fL [facility] MCH 34.2(H) 27.1 - 33.3 pg [facility] MCHC 32.3 32.3 - 35.7 g/dL [facility] RDW CV 19.7(H) 11.1 - 14.9 % [facility] RDW SD 75.8(H) 35.7 - 48.1 fL [facility] NRBC abs 0.81(H) 0.00 - 0.01 K/cumm [facility] Blood 07/26/2024 9:42 PM CDT 07/26/2024 10:23 PM CDT Caroline BERNAL LAB BLOOD ORDERABLES Fi nal Result [facility] [place] [address] * Magnesium (07/26/2024 9:42 PM CDT) Pathologist [facility] Magnesium 1.4 1.4 - 2.5 mg/dL Blood 07/26/2024 9:42 PM CDT 07/26/2024 10:23 PM CDT Caroline BERNAL LAB BLOOD ORDERABLES Fi nal Result Performing Organization Address City/[facility]/ZIP Co de Phone Number [facility] [place] [address] * (ABNORMAL) POCT glucose (07/26/2024 7:58 PM CDT) Glucose, POC 250(H) 70 - 199 mg/dL Blood 07/26/2024 7:58 PM CDT 07/26/2024 7:58 PM CDT Octavia Lemus MD LAB POCT O RDERABLES - DEVICE Final Result Performing Organization Address [facility] Co de Phone Number ZULEMA [facility] [place] [address] * POCT glucose (07/26/2024 5:26 PM CDT) [facility] Glucose, POC 123 70 - 199 mg/dL Blood 07/26/2024 5:26 PM CDT 07/26/2024 5:26 PM CDT Octavia Lemus MD LAB POCT O RDERABLES - DEVICE Final Result Performing Organization Address City/[facility]/ZIP Co de Phone Number ZULEMA [facility] [place] [address] * ECG 12 lead (07/26/2024 4:20 PM CDT) [facility] Signature Ventricular Rate EKG/Min 68 BPM [facility] Atrial Rate 68 BPM [facility] AZ-Interval (MSEC) 120 ms [facility] QRS-Interval (MSEC) 92 ms [facility] QT-Interval (MSEC) 484 ms [facility] QTc 514 ms [facility] P Dyer 75 degrees [facility] R Dyer 97 degrees [facility] T Dyer 232 degrees [facility] Diagnosis Normal sinus rhythm Rightward axis Poor r wave progression associated with abnormal lead placement, obesity, pulmonary disease, anterior infarction. (cited on or before 14-JUL-2024) ST & T wave abnormality, consider inferolateral ischemia Prolonged QT Abnormal ECG When compared with ECG of 19-JUL-2024 02:31, Vent. rate has decreased BY ??35 BPM Serial changes of Anterior infarct Present Confirmed by SOHAM WINTERS M.D ([id number]) on 07/28/2024 11:27:24 AM [facility] [employer] 07/26/2024 4:20 PM CDT 07/28/2024 11:27 AM CDT us Caroline BERNAL ECG ORDERABLES Final R esult Performing Organization Address City/[facility]/ZIP Co de Phone Number [facility] [employer] [facility] * (ABNORMAL) POCT glucose (07/26/2024 11:38 AM CDT) Glucose, POC 225(H) 70 - 199 mg/dL Blood 07/26/2024 11:3 8 AM CDT 07/26/2024 11:38 AM CDT Octavia Lemus MD LAB POCT O RDERABLES - DEVICE Final Result Performing Organization Address [facility] Co de Phone Number [facility] [place] [address] * (ABNORMAL) POCT glucose (07/26/2024 7:38 AM CDT) Glucose, POC 334(H) 70 - 199 mg/dL Blood 07/26/2024 7:38 AM CDT 07/26/2024 7:38 AM CDT Octavia Lemus MD LAB POCT O RDERABLES - DEVICE Final Result Performing Organization Address [facility] Co de Phone Number [facility] [place] [address] * eGFR (07/25/2024 9:39 PM CDT) eGFR [...] ORDERABLES Fi nal Result ZULEMA [facility] [place] [address] * (ABNORMAL) Differential, auto (07/25/2024 9:39 PM CDT) Neutrophil abs 13.0(H) 1.5 - 6.5 K/cumm Imm gran abs 0.2(H) 0.0 - 0.1 K/cumm [facility] Lymphocyte abs 2.2 0.8 - 3.3 K/cumm [facility] Monocyte abs 1.2(H) 0.2 - 0.8 K/cumm [facility] Eosinophil abs 0.0 0.0 - 0.5 K/cumm [facility] Basophil abs 0.0 0.0 - 0.1 K/cumm [facility] Neutrophil pct 78.0 % [facility] Comment: Confirmed by smear review Interpretive Data Percent cell count reference ranges are not reported, since discordance with absolute values may lead to misinterpretation of CBC data. Current Interpretive Data was last revised on 2018. Imm gran pct 1.1 % [facility] Comment: Interpretive Data Percent cell count reference ranges are not reported, since discordance with absolute values may lead to misinterpretation of CBC data. Current Interpretive Data was last revised on 2018. Lymphocyte pct 13.3 % [facility] Comment: Interpretive Data Percent cell count reference ranges are not reported, since discordance with absolute values may lead to misinterpretation of CBC data. Current Interpretive Data was last revised on 2018. Monocyte pct 7.4 % [facility] Comment: Interpretive Data Percent cell count reference ranges are not reported, since discordance with absolute values may lead to misinterpretation of CBC data. Current Interpretive Data was last revised on 2018. Eosinophil pct 0.1 % [facility] Comment: Interpretive Data Percent cell count reference ranges are not reported, since discordance with absolute values may lead to misinterpretation of CBC data. Current Interpretive Data was last revised on 2018. Basophil pct 0.1 % [facility] Comment: Interpretive Data Percent cell count reference ranges are not reported, since discordance with absolute values may lead to misinterpretation of CBC data. Current Interpretive Data was last revised on 2018. Blood 07/25/2024 9:39 PM CDT 07/25/2024 10:19 PM CDT us Caroline BERNAL LAB BLOOD ORDERABLES Fi nal Result [facility] [place] [address] * (ABNORMAL) Comprehensive metabolic panel (07/25/2024 9:39 PM CDT) Sodium 140 135 - 145 mmol/L Potassium, pl 4.1 3.3 - 4.9 mmol/L [facility] Chloride 96(L) 97 - 110 mmol/L [facility] CO2 41(H) 22 - 32 mmol/L [facility] Anion gap 3 2 - 15 mmol/L [facility] BUN 20 6 - 25 mg/dL [facility] Creatinine 0.75(L) 0.80 - 1.30 mg/dL [facility] Glucose 157 70 - 199 mg/dL [facility] Comment: Interpretive Data Fasting glucose [...] 2022. Calcium 8.0(L) 8.5 - 10.3 mg/dL [facility] Bilirubin, total 0.2 0.1 - 1.2 mg/dL [facility] Protein, pl 6.0(L) 6.5 - 8.5 g/dL [facility] Albumin 2.8(L) 3.5 - 5.0 g/dL [facility] Alk phos 111 40 - 130 Units/L [facility] ALT 23 7 - 55 Units/L [facility] AST 31 10 - 50 Units/L [facility] Blood 07/25/2024 9:39 PM CDT 07/25/2024 10:19 PM CDT us Caroline BERNAL LAB BLOOD ORDERABLES Fi nal Result [facility] [place] [address] * (ABNORMAL) CBC with auto differential (07/25/2024 9:39 PM CDT) Pathologist [facility] WBC 16.7(H) 3.8 - 9.9 K/cumm Hgb 9.4(L) 13.0 - 17.5 g/dL [facility] Hct 29.2(L) 38.9 - 50.3 % [facility] Plt 296 150 - 400 K/cumm [facility] MPV 11.4 9.1 - 12.3 fL [facility] RBC 2.82(L) 4.30 - 5.80 M/cumm [facility] MCV 103.5(H) 81.3 - 96.4 fL [facility] MCH 33.3 27.1 - 33.3 pg [facility] MCHC 32.2(L) 32.3 - 35.7 g/dL [facility] RDW CV 19.9(H) 11.1 - 14.9 % [facility] RDW SD 70.4(H) 35.7 - 48.1 fL [facility] NRBC abs 2.27(H) 0.00 - 0.01 K/cumm [facility] Blood 07/25/2024 9:39 PM CDT 07/25/2024 10:19 PM CDT Caroline BERNAL LAB BLOOD ORDERABLES Ed ited Result - Final [facility] [place] [address] * Magnesium (07/25/2024 9:39 PM CDT) [facility] Magnesium 1.5 1.4 - 2.5 mg/dL Blood 07/25/2024 9:39 PM CDT 07/25/2024 10:19 PM CDT Caroline BERNAL LAB BLOOD ORDERABLES Fi nal Result Performing Organization Address [facility] Co de Phone Number [facility] [place] [address] * POCT glucose (07/25/2024 9:26 PM CDT) Glucose, POC 187 70 - 199 mg/dL Blood 07/25/2024 9:26 PM CDT 07/25/2024 9:26 PM CDT us Octavia Lemus MD LAB POCT O RDERABLES - DEVICE Final Result Performing Organization Address [facility] Co de Phone Number [facility] [place] [address] * (ABNORMAL) POCT glucose (07/25/2024 5:29 PM CDT) Glucose, POC 270(H) 70 - 199 mg/dL Blood 07/25/2024 5:29 PM CDT 07/25/2024 5:29 PM CDT us Octavia Lemus MD LAB POCT O RDERABLES - DEVICE Final Result Performing Organization Address [facility] Co de Phone Number [facility] [place] [address] * (ABNORMAL) POCT glucose (07/25/2024 12:09 PM CDT) Glucose, POC 324(H) 70 - 199 mg/dL Blood 07/25/2024 12:0 9 PM CDT 07/25/2024 12:09 PM CDT us Octavia Lemus MD LAB POCT O RDERABLES - DEVICE Final Result Performing Organization Address City/[facility]/ZIP Co de Phone Number [facility] [place] [address] * (ABNORMAL) POCT glucose (07/25/2024 7:59 AM CDT) [facility] Glucose, POC 288(H) 70 - 199 mg/dL Blood 07/25/2024 7:59 AM CDT 07/25/2024 7:59 AM CDT us Octavia Lemus MD LAB POCT O RDERABLES - DEVICE Final Result [facility] [place] [address] * POCT glucose (07/25/2024 2:04 AM CDT) [facility] Glucose, POC 145 70 - 199 mg/dL Blood 07/25/2024 2:04 AM CDT 07/25/2024 2:04 AM CDT us Octavia Lemus MD LAB POCT O RDERABLES - DEVICE Final Result [facility]MA [facility] [place] [address] * eGFR (07/24/2024 9:39 PM CDT) [facility] eGFR >90 >=60 mL/min/1. 73 m2 [...] PM CDT Caroline BERNAL LAB BLOOD ORDERABLES [facility] Result [facility] [place] [address] * (ABNORMAL) Differential, auto (07/24/2024 9:39 PM CDT) Pathologist [facility] Neutrophil abs 15.7(H) 1.5 - 6.5 K/cumm Imm gran abs 0.2(H) 0.0 - 0.1 K/cumm [facility] Lymphocyte abs 0.3(L) 0.8 - 3.3 K/cumm [facility] Monocyte abs 1.2(H) 0.2 - 0.8 K/cumm [facility] Eosinophil abs 0.0 0.0 - 0.5 K/cumm [facility] Basophil abs 0.0 0.0 - 0.1 K/cumm [facility] Neutrophil pct 90.0 % [facility] Comment: Confirmed by smear review Interpretive Data Percent cell count reference ranges are not reported, since discordance with absolute values may lead to misinterpretation of CBC data. Current Interpretive Data was last revised on 2018. Imm gran pct 1.4 % [facility] Comment: Interpretive Data Percent cell count reference ranges are not reported, since discordance with absolute values may lead to misinterpretation of CBC data. Current Interpretive Data was last revised on 2018. Lymphocyte pct 1.7 % [facility] Comment: Interpretive Data Percent cell count reference ranges are not reported, since discordance with absolute values may lead to misinterpretation of CBC data. Current Interpretive Data was last revised on 2018. Monocyte pct 6.8 % [facility] Comment: Interpretive Data Percent cell count reference ranges are not reported, since discordance with absolute values may lead to misinterpretation of CBC data. Current Interpretive Data was last revised on 2018. Eosinophil pct 0.0 % [facility] Comment: Interpretive Data Percent cell count reference ranges are not reported, since discordance with absolute values may lead to misinterpretation of CBC data. Current Interpretive Data was last revised on 2018. Basophil pct 0.1 % [facility] Comment: Interpretive Data Percent cell count reference ranges are not reported, since discordance with absolute values may lead to misinterpretation of CBC data. Current Interpretive Data was last revised on 2018. Blood 07/24/2024 9:39 PM CDT 07/24/2024 10:35 PM CDT Caroline BERNAL LAB BLOOD ORDERABLES Fi nal Result [facility] [place] [address] * (ABNORMAL) Comprehensive metabolic panel (07/24/2024 9:39 PM CDT) Sodium 140 135 - 145 mmol/L Potassium, pl 3.7 3.3 - 4.9 mmol/L [facility] Chloride 96(L) 97 - 110 mmol/L [facility] CO2 33(H) 22 - 32 mmol/L [facility] Anion gap 11 2 - 15 mmol/L [facility] BUN 22 6 - 25 mg/dL [facility] Creatinine 0.64(L) 0.80 - 1.30 mg/dL [facility] Glucose 162 70 - 199 mg/dL [facility] Comment: Interpretive Data Fasting glucose [...] 2022. Calcium 8.1(L) 8.5 - 10.3 mg/dL [facility] Bilirubin, total 0.2 0.1 - 1.2 mg/dL [facility] Protein, pl 6.9 6.5 - 8.5 g/dL [facility] Albumin 3.2(L) 3.5 - 5.0 g/dL [facility] Alk phos 122 40 - 130 Units/L [facility] ALT 27 7 - 55 Units/L [facility] AST 43 10 - 50 Units/L [facility] Blood 07/24/2024 9:39 PM CDT 07/24/2024 10:37 PM CDT us Caroline BERNAL LAB BLOOD ORDERABLES Fi nal Result [facility] [place] [address] * (ABNORMAL) CBC with auto differential (07/24/2024 9:39 PM CDT) Pathologist [facility] WBC 17.4(H) 3.8 - 9.9 K/cumm Hgb 9.1(L) 13.0 - 17.5 g/dL [facility] Hct 28.7(L) 38.9 - 50.3 % [facility] Plt 338 150 - 400 K/cumm [facility] MPV 11.1 9.1 - 12.3 fL [facility] RBC 2.77(L) 4.30 - 5.80 M/cumm [facility] MCV 103.6(H) 81.3 - 96.4 fL [facility] MCH 32.9 27.1 - 33.3 pg [facility] MCHC 31.7(L) 32.3 - 35.7 g/dL [facility] RDW CV 19.3(H) 11.1 - 14.9 % [facility] RDW SD 69.0(H) 35.7 - 48.1 fL [facility] NRBC abs 2.61(H) 0.00 - 0.01 K/cumm [facility] Blood 07/24/2024 9:3 9 PM CDT 07/24/2024 10:35 PM CDT Result [facility] Caroline BERNAL LAB BLOOD ORDERABLES Ed ited Result - Final Performing Organization Address [facility]/ZIP Co de Phone Number [facility] [place] [address] * Magnesium (07/24/2024 9:39 PM CDT) Magnesium 1.9 1.4 - 2.5 mg/dL Blood 07/24/2024 9:39 PM CDT 07/24/2024 10:36 PM CDT Result [facility] Caroline BERNAL LAB BLOOD ORDERABLES Fi nal Result [facility] [place] [address] * (ABNORMAL) POCT glucose (07/24/2024 8:47 PM CDT) Glucose, POC 217(H) 70 - 199 mg/dL Blood 07/24/2024 8:47 PM CDT 07/24/2024 8:47 PM CDT Octavia Lemus MD LAB POCT O RDERABLES - DEVICE Final Result Performing Organization Address City/[facility]/ZIP Co de Phone Number [facility]ULEMA [facility] [place] [address] * (ABNORMAL) POCT glucose (07/24/2024 5:10 PM CDT) Glucose, POC 251(H) 70 - 199 mg/dL Blood 07/24/2024 5:10 PM CDT 07/24/2024 5:10 PM CDT Octavia Lemus MD LAB POCT O RDERABLES - DEVICE Final Result Performing Organization Address [facility] Co de Phone Number ZULEMA [facility] [place] [address] * TRANSTHORACIC ECHO (TTE) COMPLETE W DOPPLER/CF W CONTRAST (07/24/2024 5:01 PM CDT) Pathologist [facility] LV EF 30 % [facility] Anatomical Region Laterality Modality Ultrasound 07/24/2024 2:15 PM CDT Narrative 07/24/2024 6:22 PM CDT Patient name: Bri Jones Date of test: 07/24/2024 Type of test: TTE w/Doppler Hospital #: 0 Date of : 1965 (M) Qualifications Examiner: Mariah Peters RDCS, [facility] Referring Physician: CAROLINE MARIA MD Contrast Agent: 0.8 ml Optison Administered, (2.2 ml wasted). Contrast Administered by: Sidra Garcia RN Supervised/Interpreted by: Bladimir Henao MD Diagnosis: Location: [facility] Reason for test: H/o CHF, worsening BNP [...] 2=Hypo 3=Akinetic 4=Dyskin./Aneurysm 0=Not visualized) Parasternal Long Dyer:MAS=2 BAS=2 MIL=2 KEN=2 Parasternal Short Dyer:MAS=2 MIS=2 SD=2 MIL=2 MAL=2 MA=2 Apical 4 Chambers:=2 MIS=2 BIS=2 BAL=2 MAL=2 AL=2 AC=2 Apical 2 Chambers:AI=2 SD=2 BI=2 BA=2 MA=2 AA=2 AC=2 LV Global [...] MD By signing this report, the attending power electronics engineer certifies that he or she has personally supervised and interpreted the echocardiogram and has reviewed and or edited and agrees with the written comments contained within the report. Procedure Note Cristobal, Bladimir Casey MD - 07/24/2024 Patient name: Bri Jones Date of test: 07/24/2024 Type of test: TTE w/Doppler Hospital #: 0 Date of : 1965 (M) Qualifications Examiner: Mariah Peters, ZAFAR, [facility] Referring Physician: CAROLINE MARIA MD Contrast Agent: 0.8 ml Optison Administered, (2.2 ml wasted). Contrast Administered by: Sidra Garcia RN Supervised/Interpreted by: Bladimir Henao MD Diagnosis: Location: [facility] Reason for test: H/o CHF, worsening BNP [...] 2=Hypo 3=Akinetic 4=Dyskin./Aneurysm 0=Not visualized) Parasternal Long Dyer:MAS=2 BAS=2 MIL=2 KEN=2 Parasternal Short Dyer:MAS=2 MIS=2 SD=2 MIL=2 MAL=2 MA=2 Apical 4 Chambers:=2 MIS=2 BIS=2 BAL=2 MAL=2 AL=2 AC=2 Apical 2 Chambers:AI=2 SD=2 BI=2 BA=2 MA=2 AA=2 AC=2 LV Global [...] MD By signing this report, the attending power electronics engineer certifies that he or she has personally [...] POCT O RDERABLES - DEVICE Final Result [facility] Department [place] [address] * (ABNORMAL) POCT glucose (07/24/2024 8:33 AM CDT) Glucose, POC 330(H) 70 - 199 mg/dL Blood 07/24/2024 8:33 AM CDT 07/24/2024 8:33 AM CDT Octavia Lemus MD LAB POCT O RDERABLES - DEVICE Final Result [facility] [place] [address] * (ABNORMAL) POCT glucose (07/24/2024 6:34 AM CDT) [facility] Glucose, POC 305(H) 70 - 199 mg/dL Blood 07/24/2024 6:34 AM CDT 07/24/2024 6:34 AM CDT Octavia Lemus MD LAB POCT O RDERABLES - DEVICE Final Result Performing Organization Address City/[facility]/ZIP Co de Phone Number [facility] [place] [address] * Respiratory pathogen panel Nasopharyngeal (07/24/2024 2:35 AM CDT) [facility] Influenza A RNA Not Detected Not Detected Influenza B RNA Not Detected Not Detected [facility] RSV RNA Not Detected Not Detected [facility] COVID-19 RNA Not Detected Not Detected [facility] Coronavirus 229E RNA Not Detected Not Detected [facility] Coronavirus HKU1 RNA Not Detected Not Detected [facility] Coronavirus NL63 RNA Not Detected Not Detected [facility] Coronavirus OC43 RNA Not Detected Not Detected [facility] Adenovirus DNA Not Detected Not Detected [facility] Metapneumovirus RNA Not Detected Not Detected [facility] Rhinovirus/Enterov irus RNA Not Detected Not Detected [facility] Parainfluenza 1 RNA Not Detected Not Detected [facility] Parainfluenza 2 RNA Not Detected Not Detected [facility] Parainfluenza 3 RNA Not Detected Not Detected [facility] Parainfluenza 4 RNA Not Detected Not Detected [facility] B. pertussis DNA Not Detected Not Detected [facility] B. parapertussis DNA Not Detected Not Detected [facility] C. pneumoniae DNA Not Detected Not Detected [facility] M. pneumoniae DNA Not Detected Not Detected [facility] Nasopharyngeal 07/24/2024 2: 35 AM CDT 07/24/2024 3:44 AM CDT Carlos A POOLE [facility] - 07/24/2024 4:48 AM CDT Is the Patient experiencing symptoms consistent with COVID?->Yes Surveillance testing for transplant patient?->No ??Interpretive Data The LPATH FilmArray Respiratory Panel (RP2.1) assay is a [...] assay has FDA clearance for testing of STONEWORK SUPERVISOR swabs. ??The performance of additional specimen types has been assessed by the performing laboratory. ??The performance characteristics of this assay have been determined by [facility] Molecular Infectious Disease [facility]. Current interpretive data was last revised on 22. us Wilbert Strickland MD LAB MICROBIOLOGY - GENERA L ORDERABLES Final Result Performing Organization Address City/[facility]/ZIP Co de Phone Number [facility] [place] [address] * (ABNORMAL) POCT glucose (07/24/2024 1:58 AM CDT) Glucose, POC 373(H) 70 - 199 mg/dL Blood 07/24/2024 1:58 AM CDT 07/24/2024 1:58 AM CDT us Brittny Escalera MD LAB POCT ORDERABLES - DEVICE Final Result Performing Organization Address [facility] Co de Phone Number [facility] [place] [address] * CT Body Outside Consult (07/24/2024 1:53 [...] images may or may not represent the [place] source data set and thus may contain [...] aorta. No suspicious osseous lesions. Procedure Note Cameron Lenz MD - 07/24/2024 EXAMINATION: RADIOLOGY CONSULTATION [...] images may or may not represent the [place] source data set and thus may contain [...] only and have not been reviewed by [facility] Radiology. ??There will be no report generated by a [facility] Radiologist. Narrative [email or web address] - 07/24/2024 1:50 [...] MD LAB BLOOD ORDERABLES Pilar armas Result [facility] [place] [address] * (ABNORMAL) Differential, auto (07/24/2024 12:28 AM CDT) Neutrophil abs 16.5(H) 1.5 - 6.5 K/cumm Imm gran abs 0.3(H) 0.0 - 0.1 K/cumm [facility] Lymphocyte abs 0.0(L) 0.8 - 3.3 K/cumm [facility] Monocyte abs 0.5 0.2 - 0.8 K/cumm [facility] Eosinophil abs 0.0 0.0 - 0.5 K/cumm [facility] Basophil abs 0.0 0.0 - 0.1 K/cumm [facility] Neutrophil pct 95.4 % [facility] Comment: Confirmed by smear review Interpretive Data Percent cell count reference ranges are not reported, since discordance with absolute values may lead to misinterpretation of CBC data. Current Interpretive Data was last revised on 2018. Imm gran pct 1.4 % [facility] Comment: Interpretive Data Percent cell count reference ranges are not reported, since discordance with absolute values may lead to misinterpretation of CBC data. Current Interpretive Data was last revised on 2018. Lymphocyte pct 0.0 % [facility] Comment: Interpretive Data Percent cell count reference ranges are not reported, since discordance with absolute values may lead to misinterpretation of CBC data. Current Interpretive Data was last revised on 2018. Monocyte pct 3.1 % [facility] Comment: Interpretive Data Percent cell count reference ranges are not reported, since discordance with absolute values may lead to misinterpretation of CBC data. Current Interpretive Data was last revised on 2018. Eosinophil pct 0.0 % [facility] Comment: Interpretive Data Percent cell count reference ranges are not reported, since discordance with absolute values may lead to misinterpretation of CBC data. Current Interpretive Data was last revised on 2018. Basophil pct 0.1 % [facility] Comment: Interpretive Data Percent cell count reference ranges are not reported, since discordance with absolute values may lead to misinterpretation of CBC data. Current Interpretive Data was last revised on 2018. Blood 07/24/2024 12:2 8 AM CDT 07/24/2024 12:45 AM CDT Wilbert Strickland MD LAB BLOOD ORDERABLES Pilar l Result Performing Organization Address [facility] de Phone Number [facility] [place] [address] * (ABNORMAL) Blood gas, venous (07/24/2024 12:28 AM CDT) pH, Venous 7.41 7.32 - 7.43 PCO2, Venous 54(H) 40 - 50 mmHg [facility] PO2, Venous 58 mmHg [facility] Comment: Interpretive Data No Reference Range Established Current Interpretive Data was last revised on 2018. HCO3 Venous, Calculated 36(H) 20 - 30 mmol/L [facility] BE, venous 8 mmol/L [facility] Comment: Interpretive Data No Reference Range Established Current Interpretive Data was last revised on 2018. Blood 07/24/2024 12:2 8 AM CDT 07/24/2024 12:36 AM CDT Wilbert Strickland MD LAB BLOOD ORDERABLES Pilar l Result Performing Organization Address [facility] Co de Phone Number [facility] [place] [address] * Tacrolimus level random (07/24/2024 12:28 AM CDT) Tacrolimus random 1.7 ng/mL Comment: Interpretive Data Testing performed by liquid chromatography-tandem mass spectrometry. ??Therapeutic concentrations vary depending on type of transplanted organ and time elapsed since transplant. ??Typical trough concentrations range from 5-15 ng/mL. ??This test was developed and its performance characteristics determined by the [facility] consistent with CLIA requirements. ??This test has not been cleared or approved by the [place] Food and Drug administration. ??Current interpretive data last reviewed 2020. Blood 07/24/2024 12:2 8 AM CDT 07/24/2024 12:45 AM CDT us Wilbert Strickland MD LAB BLOOD ORDERABLES Pilar armas Result [facility] [place] [address] * (ABNORMAL) Pro B-type natriuretic peptide (07/24/2024 [...] ORDERABLES Pilar l Result Performing Organization Address [facility] de Phone Number [facility] [place] [address] * Lipase (07/24/2024 12:28 AM CDT) Lipase 45 10 - 99 Units/L Blood 07/24/2024 12:2 8 AM CDT 07/24/2024 12:45 AM CDT Wilbert Strickland MD LAB BLOOD ORDERABLES Pilar l Result Performing Organization Address [facility] de Phone Number [facility] [place] [address] * aPTT (07/24/2024 12:28 AM CDT) aPTT [...] ORDERABLES Pilar l Result Performing Organization Address [facility] de Phone Number [facility] [place] [address] * (ABNORMAL) Protime-INR (07/24/2024 12:28 AM CDT) PT 36.7(H) 9.7 - 13.0 sec INR 3.32(H) 0.90 - 1.20 [facility] Comment: Interpretive data Oral anticoagulant [...] ORDERABLES Pilar l Result Performing Organization Address [facility] Co de Phone Number [facility] [place] [address] * Type and screen (07/24/2024 12:28 AM CDT) ABO Rh A Positive Ursula, indirect Negative [facility] Blood 07/24/2024 12:2 8 AM CDT 07/24/2024 12:41 AM CDT Narrative [facility] - 07/24/2024 1:41 AM CDT Has the patient had Daratumumab or Isatuximab in the past 6 months?->Unknown us Wilbert Strickland MD LAB BLOOD BANK TEST ORDER SUBHA Final Result [facility] [place] [address] * (ABNORMAL) CBC with auto differential (07/24/2024 12:28 AM CDT) WBC 17.3(H) 3.8 - 9.9 K/cumm Hgb 8.5(L) 13.0 - 17.5 g/dL [facility] Hct 26.6(L) 38.9 - 50.3 % [facility] Plt 357 150 - 400 K/cumm [facility] MPV 11.1 9.1 - 12.3 fL [facility] RBC 2.61(L) 4.30 - 5.80 M/cumm [facility] MCV 101.9(H) 81.3 - 96.4 fL [facility] MCH 32.6 27.1 - 33.3 pg [facility] MCHC 32.0(L) 32.3 - 35.7 g/dL [facility] RDW CV 19.2(H) 11.1 - 14.9 % [facility] RDW SD 65.4(H) 35.7 - 48.1 fL [facility] NRBC abs 2.53(H) 0.00 - 0.01 K/cumm [facility] Blood 07/24/2024 12:2 8 AM CDT 07/24/2024 12:45 AM CDT us Wilbert Strickland MD LAB BLOOD ORDERABLES Edit ed Result - Final [facility] [place] [address] * (ABNORMAL) Hepatic function panel (07/24/2024 12:28 AM CDT) [facility] Bilirubin, total 0.3 0.1 - 1.2 mg/dL Bilirubin, direct <0.2 0.1 - 0.3 mg/dL [facility] Protein, pl 6.5 6.5 - 8.5 g/dL [facility] Albumin 3.0(L) 3.5 - 5.0 g/dL [facility] Alk phos 114 40 - 130 Units/L [facility] ALT 20 7 - 55 Units/L [facility] AST 29 10 - 50 Units/L [facility] Blood 07/24/2024 12:2 8 AM CDT 07/24/2024 12:45 AM CDT Wilbert Strickland MD LAB BLOOD ORDERABLES Pilar armas Result [facility] [place] [address] * (ABNORMAL) Basic metabolic panel (07/24/2024 12:28 AM CDT) [facility] Sodium 137 135 - 145 mmol/L Potassium, pl 3.8 3.3 - 4.9 mmol/L [facility] Chloride 95(L) 97 - 110 mmol/L [facility] CO2 33(H) 22 - 32 mmol/L [facility] Anion gap 9 2 - 15 mmol/L [facility] BUN 25 6 - 25 mg/dL [facility] Creatinine 0.68(L) 0.80 - 1.30 mg/dL [facility] Glucose 372(H) 70 - 199 mg/dL [facility] Comment: Interpretive Data Fasting glucose [...] 2022. Calcium 8.1(L) 8.5 - 10.3 mg/dL [facility] Blood 07/24/2024 12:2 8 AM CDT 07/24/2024 12:45 AM CDT us Wilbert Strickland MD LAB BLOOD ORDERABLES Pilar l Result [facility] [place] [address] * (ABNORMAL) POCT glucose (07/23/2024 10:33 PM CDT) [facility] Signature Glucose, POC 344(H) 70 - 199 mg/dL Blood 07/23/2024 10:3 3 PM CDT 07/23/2024 10:33 PM CDT us Brittny Escalera MD LAB POCT ORDERABLES - DEVICE Final Result Performing Organization Address [facility] Co de Phone Number [facility] [place] [address] documented in this encounter Visit Diagnoses Diagnosis [...] Given 07/31/2024 8:53 AM CDT 1,200 mg ohswgelituv-nuogvarne-npxxzsok (TRELEGY ELLIPTA) 200-62.5-25 mcg inhaler 1 puff 1 puff, inhalation, Daily (respiratory care specialist), First dose (after last modification) on Sat07/24/24 at 0900, Rinse mouth with water after use. Do not swallow. Given 07/24/2024 8:41 AM CDT 1 puff xbgneczqibh-oznhhxsdc-txbrdrxm (TRELEGY ELLIPTA) 200-62.5-25 mcg inhaler 1 puff [...] 3 mL, nebulization, Every 4 hours PRN (respiratory care specialist), wheezing, shortness of breath, Starting on Angy [...] on Sat07/29/24 at 1230, For 6 doses, [facility] appropriate use criteria for isavuconazonium are limited [...] (after last modification) on Sat07/31/24 at 0900, [facility] appropriate use criteria for isavuconazonium are limited [...] oral, Nightly PRN, sleep, Starting on Angy 07/23/24 at 2303, Indications: Sleep-Onset InsomniaIndications:Sleep-Onset Insomnia Given [...] Infection 0900 (New Bag - Provider: Dora Karimi, BECKI)1000 (Stopped - Provider: Dora Karimi RN) ascorbic [...] Burrell RN) 0816 (Given - Provider: Dora Toth, BECKI) onbfaykfdhv-mehykttkf-lcf anter (TRELEGY ELLIPTA) 200-62.5-25 mcg inhaler 1 [...] Dora Karimi RN)1601 (Given - Provider: Jayashree Garcia, BECKI)2110 (Given - Provider: Esther Ayala RN) 0827 (Given - Provider: Anaid Burrell RN)152 (Given - Provider: Anaid Burrell, BECKI)215 (Given - Provider: Laly Olivas, BECKI) 0816 (Given - Provider: Dora Toth, BECKI) guaiFENesin ER (MUCINEX) extended release tablet 600 mg 600 mg, oral, 2 times daily, First dose on Sat07/24/24 at 0900, Do not crush, chew, cut, dissolve, open or otherwise manipulate tablet/capsule. 0853 (Given - Provider: Dora Karimi RN)211 (Given - Provider: Esther Ayala RN) 0828 (Given - Provider: Anaid Burrell, BECKI)215 (Given - Provider: Laly Olivas, BECKI) 0816 [...] RN) 2151 (Not Given - Provider: Laly Olivas, BECKI - Reason: Patient/family refused) insulin lispro (HumaLOG, [...] (after last modification) on Sat07/31/24 at 0900, [facility] appropriate use criteria for isavuconazonium are limited [...] 0816 (Given - Provider: Dora Toth RN) nicotine (NICODERM CQ) 21 mg [...] 0827 (Medication Applied - Provider: Anaid Burrell, EBCKI)2202 (Patch Verify - Provider: Laly Olivas, BECKI) [...] grapefruit juice 08 (Given - Provider: Anaid Burrell RN) PRN Medication Order 07/31/2024 08/01/2024 08/02/2024 acetaminophen [...] 3 mL, nebulization, Every 4 hours PRN (respiratory care specialist), wheezing, shortness of breath, Starting on Sat07/23/24 at 2331, Indications: Chronic Obstructive Pulmonary Disease with Bronchospasms 0618 (Given - Provider: Chad Oliveira, HSE SPECIALIST) ondansetron (ZOFRAN) injection 4 mg 4 mg, [...] RN) 020 (Given - Provider: Esther Ayala RN)215 (Given - Provider: Laly Olivas, BECKI) 020 [...] oral, Nightly PRN, sleep, Starting on Angy 07/23/24 at 2303, Indications: Sleep-Onset Insomnia 211 (Given - Provider: Esther Ayala RN) 2158 [...] less than 70 mg/dL, Starting on Angy 07/23/24 at 2301, If patient is alert and [...] 07/23/20 dextrose gel in packet 15 g 07/23/2024 tqolmagorvr-kfrxyapld-lvxlwe er (TRELEGY ELLIPTA) 200-62.5-25 mcg inhaler 1 [...] documented as of this encounter Care Teams Framing Carpenter Relationship Specialty Start Date End Date Kirt Lindsay DO PCP - General Internal Medicine 02/02/21 Josué Del Valle MD PhD Medical Oncologist/Fern Gatherer Medical Oncology 08/26/19 Cal Carranza DO [address] [address] Photographer Apprentice Lithographic Internal Medicine 06/12/23 Halie Khan MD [address] [facility] [address] [place] [address] Model Artists' Critical Care Med 06/12/23 Wilfred Kinsey MD [address] [facility] [address] [place] [address] Consulting Physician Gastroenterology 03/02/24 documented as of this encounter
--- OUTSIDE RECORDS SUMMARY | 2024-11-22 12:49 | XMS_ITS | Encounter Summary ---
Author Organization [facility] Address [address] [facility] [address] [place] [address] Phone Care Team Providers Care Supervisor Landscape Name Role Phone Josué Del Valle MD PhD Unavailable [phone] Kirt Lindsay DO Primary Care Provider [phone] Cal Carranza DO Unavailable [phone] Halie Khan MD Unavailable [phone] Wilfred Kinsey MD Unavailable Encounter Details Date Type Department Care Team (Late st Contact Info) Description 07/08/2024 Telephone [facility] Infectious Diseases [address] [place] [id number] Page Marsh Social History Tobacco Use Types Packs/Day Years Used Date Smoking Tobacco: Some Days Cigarettes 0.5 40.4 Started: 1984 Smokeless Tobacco: Never Comments:pt states tried to quit [facility] Utilities Answer Date Recorded [...] week 06/16/2024 How often do you attend jew or sikh serv ices? Never 06/16/2024 Do you belong to any clubs o r organizations such as jew groups, unions, fraternal or athletic groups, or [...] time in the past 12 m [facility], were you homeless or living in a mcc (including now)? No 06/16/2024 Personal Safety Answer Date Recorded Have you ever been in or are you currently in a harmful physical or emotional relationship or is someone making you feel afraid or unsafe? 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 Gender Identity Not on file Sexual Orientation Not on file documented as of this encounter Miscellaneous Notes * Telephone Encounter - Page Mrash - 07/08/2024 2:34 PM CDT Please contact [...] as of this encounter Care Teams Supervisor Landscape Relationship Specialty Start Date End Date Kirt Lindsay DO PCP - General Internal Medicine 02/02/21 Josué Del Valle MD PhD Medical Oncologist/Signal Technician Medical Oncology 08/26/19 Cal Carranza DO [address] [place] [address] Telecommunications Field Technician Internal Medicine 06/12/23 Halie Khan MD [address] [address] Ships Or Barges Loader Critical Care Med 06/12/23 Wilfred Kinsey MD [address] [address] Consulting Physician Gastroenterology 03/02/24 documented as of this encounter
--- OUTSIDE RECORDS SUMMARY | 2024-11-22 12:49 | XMS_ITS | Encounter Summary ---
Author Organization [facility] Address [address] [place] [address] Care Team Providers Care Injection Maintenance Technician Name Role Phone Josué Del Valle MD PhD Unavailable Kirt Lindsay DO Primary Care Provider [phone] Cal Carranza DO Unavailable [phone] Halie Khan MD Unavailable [phone] Wilfred Kinsey MD Unavailable Encounter Details Date Type Department Care Team (Late st Contact Info) Description 07/06/2024 Documentation [facility] Social Work [address] [place] [address] Anna Vaughn LCSW Social History Tobacco Use Types Packs/Day Years Used Date Smoking Tobacco: Some Days Cigarettes 0.5 40 Started: 1984 Smokeless Tobacco: Never Comments:pt states tried to quit [facility] Utilities Answer Date Recorded In the past [...] week 06/16/2024 How often do you attend oriental orthodox or mu-ism serv ices? 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 She also requested a copy of AD/DPOA paperwork, which SW sent via email. PARESH called [place] Medicare Advantage plan and was informed he does not have transportation benefits.Call reference number [id number]. Lissy explained he is not able to use his transportation through [place] because he has not met his spenddown. PARESH submitted referral to Medicaid Spenddown Advocate through [facility] and informed her that Brady can provide any medical bills from up to 6 months ago or proof he has paid his Medicare insurance premium to his local Medicaid Office: [facility] in [place] Address: [address] [place] [address] Or by uploading online to [facility] Medicaid Benefits website. PARESH also shared information about the [employer] Road to Recovery Program - [phone] in case it is helpful. PARESH will continue to follow. 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 documented as of this encounter Care Teams Injection Maintenance Technician Relationship Specialty Start Date End Date Kirt Lindsay DO PCP - General Internal Medicine 02/02/21 Josué Del Valle MD PhD Medical Oncologist/Jig Hand Medical Oncology 08/26/19 Cal Carranza DO [address] [place] [address] Quality Assurance Representative Internal Medicine 06/12/23 Halie Khan MD [address] [place] [address] Calibration Specialist Critical Care Med 06/12/23 Wilfred Kinsey MD [address] [facility] [address] [place] [address] Consulting Physician Gastroenterology 03/02/24 documented as of this encounter
--- OUTSIDE RECORDS SUMMARY | 2024-11-22 12:49 | XMS_ITS | Encounter Summary ---
Author Organization [facility] Address [address] [place] [address] Phone Care Team Providers Care Wholesale Manager Name Role Phone Josué Del Valle MD PhD Unavailable [phone] Kirt Lindsay DO Primary Care Provider [phone] Cal Carranza DO Unavailable [phone] Halie Khan MD Unavailable [phone] Wilfred Kinsey MD Unavailable Encounter Details Date Type Department Care Team (Late st Contact Info) Description 07/31/2024 Orders Only [facility] [address] [facility] Advanced Medicine 7th Floor, [place] [address] Josué Del Valle MD PhD [address] DIV IM BONE MARROW TRANSPLANT, [address] [place] [address] 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 Gender Identity Not on file Sexual [...] documented as of this encounter Care Teams Wholesale Manager Relationship Specialty Start Date End Date Kirt Lindsay DO PCP - General Internal Medicine 02/02/21 Josué Del Valle MD PhD Medical Oncologist/Airport Operations Officer Medical Oncology 08/26/19 Cal Carranza DO [address] [address] Dye Boarding Machine Operator Internal Medicine 06/12/23 Halie Khan MD [address] [id number] Coater Hand Critical Care Med 06/12/23 Wilfred Kinsey MD [address] [address] Consulting Physician Gastroenterology 03/02/24 documented as of this encounter
--- OUTSIDE RECORDS SUMMARY | 2024-11-22 12:49 | XMS_ITS | Encounter Summary ---
Author Organization [facility] Address [address] [place] [address] Phone Care Team Providers Care Bearing Maker Name Role Phone Josué Del Valle MD PhD Unavailable [phone] Kirt Lindsay DO Primary Care Provider [phone] Cal Carranza DO Unavailable [phone] Halie Khan MD Unavailable [phone] Wilfred Kinsey MD Unavailable Reason for Visit * Reason Onset Date Comments [place] ([place]) 07/21/2024 Encounter Details Date Type Department Care Team (Late st Contact Info) Description 07/21/2024 Telephone [facility] Endocrinology Metabolism and Lipid [address] [facility] Advanced Medicine 13th [place] [address] [place] [address] Bela Orellana, RN [place] ([place]) Social History Tobacco Use Types Packs/Day Years Used Date Smoking Tobacco: Some Days Cigarettes 0.5 40.4 Started: 1984 Smokeless Tobacco: Never Comments:pt states tried to quit; smoking 5 cigs/wk [facility] Utilities Answer Date Recorded In the past 12 months has th e electric, gas, oil, or water [employer] threatened to shut off services in your home? No 07/24/2024 Social Connection and Isolation Panel [NHANES] A nswer Date Recorded In a typical week, how many times do you talk on the phone with family, friends, or neighbors? Twice a week 07/24/2024 How often do you get together with friends or re latives? Once a week 07/24/2024 How often do you attend spiritism or jew serv ices? 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 Faxed most recent [...] documented as of this encounter Care Teams Bearing Maker Relationship Specialty Start Date End Date Kirt Lindsay DO PCP - General Internal Medicine 02/02/21 Josué Del Valle MD PhD Medical Oncologist/Patient Support Specialist Medical Oncology 08/26/19 Cal Carranza DO [address] [facility] [address] [place], [place] [id number] Underwriting Support Manager Internal Medicine 06/12/23 Halie Khan MD [address] Agent Critical Care Med 06/12/23 Wilfred Kinsey MD [address] [address] Consulting Physician Gastroenterology 03/02/24 documented as of this encounter
--- OUTSIDE RECORDS SUMMARY | 2024-11-22 12:49 | XMS_ITS | Encounter Summary ---
Author Organization [facility] Address [address] [place] [address] Phone Care Team Providers Care Data Operations Director Name Role Phone Josué Del Valle MD PhD Unavailable Kirt Lindsay DO Primary Care Provider [phone] Cal Carranza DO Unavailable [phone] Halie Khan MD Unavailable [phone] Wilfred Kinsey MD Unavailable Encounter Details Date Type Department Care Team (Late st Contact Info) Description 07/08/2024 Orders Only [facility] Bone Marrow Transplant [address] [facility] Advanced Medicine 7th Floor, [place] [address] Josué Del Valle MD PhD [address] DIV IM BONE MARROW TRANSPLANT, [address] [place] [address] Acute myeloblastic leukemia, in remission (HCC) (Primary Dx) Social History Tobacco Use Types Packs/Day Years Used Date Smoking Tobacco: Some Days Cigarettes 0.5 40.4 Started: 1985 Smokeless Tobacco: Never Comments:pt states tried to quit [facility] Utilities [...] How often do you attend judaism or episcopal serv ices? 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 Gender Identity Not on file Sexual Orientation [...] documented as of this encounter Care Teams Data Operations Director Relationship Specialty Start Date End Date Kirt Lindsay DO PCP - General Internal Medicine 02/02/21 Josué Del Valle MD PhD Medical Oncologist/Director Medicare Sales Medical Oncology 08/26/19 Cal Carranza DO [address] [facility] [address] [place] [address] Buckle Attaching Machine Operator Internal Medicine 06/12/23 Halie Khan MD [address] [facility] [address] [place] [address] Industrial Pipefitter Journeyman Critical Care Med 06/12/23 Wilfred Kinsey MD [address] [address] Consulting Physician Gastroenterology 03/02/24 documented as of this encounter
--- OUTSIDE RECORDS SUMMARY | 2024-11-22 12:49 | XMS_ITS | Encounter Summary ---
Author Organization [facility] Address [address] [facility] [address] [place] [address] Phone Care Team Providers Care Road Hogger Operator Name Role Phone Josué Del Valle MD PhD Unavailable [phone] Kirt Lindsay DO Primary Care Provider [phone] Cal Carranza DO Unavailable [phone] Halie Khan MD Unavailable [phone] Wilfred Kinsey MD Unavailable Encounter Details Date Type Department Care Team (Late st Contact Info) Description 07/08/2024 Telephone [facility] Infectious Diseases [address] [place] [phone] Page Marsh Social History Tobacco Use Types Packs/Day Years Used Date Smoking Tobacco: Some Days Cigarettes 0.5 40.4 Started: 1985 Smokeless Tobacco: Never Comments:pt states tried to quit [facility] Utilities Answer Date Recorded In [...] week 06/16/2024 How often do you attend christian or anabaptist serv ices? Never 06/16/2024 Do you belong [...] any time in the past 12 m [facility], were you homeless or living in a mcfp (including now)? No 06/16/2024 Personal Safety Answer Date Recorded Have you ever been in or are you currently in a harmful physical or emotional relationship or is someone making you feel afraid or unsafe? 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 Need to discuss with pt setting up PICC and IV Amikacin, labs and other testing. 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 documented as of this encounter Care Teams Road Hogger Operator Relationship Specialty Start Date End Date Kirt Lindsay DO PCP - General Internal Medicine 02/02/21 Josué Del Valle MD PhD Medical Oncologist/Firefighter Marine Medical Oncology 08/26/19 Cal Carranza DO [address] [address] Wet Roller Internal Medicine 06/12/23 Halie Khan MD [address] [address] Loader Critical Care Med 06/12/23 Wilfred Kinsey MD [address] [address] Consulting Physician Gastroenterology 03/02/24 documented as of this encounter
--- OUTSIDE RECORDS SUMMARY | 2024-11-22 12:49 | XMS_ITS | Encounter Summary ---
Author Organization [facility] Address [address] [place] [address] Phone Care Team Providers Care Boring Machine Set Up Operator Jig Name Role Phone Josué Del Valle MD PhD Unavailable [phone] Kirt Lindsay DO Primary Care Provider [phone] Cal Carranza DO Unavailable [phone] Halie Khan MD Unavailable [phone] Wilfred Kinsey MD Unavailable Encounter Details Date Type Department Care Team (Late st Contact Info) Description 07/08/2024 Orders Only [facility] Infectious Diseases [address] [place] [phone] Page Marsh Social History Tobacco Use Types Packs/Day Years Used Date Smoking Tobacco: Some Days Cigarettes 0.5 40.4 Started: 1985 Smokeless Tobacco: Never Comments:pt states tried to quit [facility] Utilities Answer Date Recorded In [...] week 06/16/2024 How often do you attend restorationism or catholic serv ices? Never 06/16/2024 Do [...] any time in the past 12 m [facility], were you homeless or living in a snf (including now)? No 06/16/2024 Personal Safety Answer Date Recorded Have you ever been in or are you currently in a harmful physical or emotional relationship or is someone making you feel afraid or unsafe? 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 Gender Identity Not on file Sexual Orientation Not on file documented as of this encounter Plan of Treatment Not on file documented as of this encounter Visit Diagnoses Not on filedocumented in this encounter Additional Health Concerns Infection Onset Date 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 documented as of this encounter Care Teams Boring Machine Set Up Operator Jig Relationship Specialty Start Date End Date Kirt Lindsay DO PCP - General Internal Medicine 02/02/21 Josué Del Valle MD PhD Medical Oncologist/Cornetist Medical Oncology 08/26/19 Cal Carranza DO [address] [facility] [address] [place] [address] Aircraft Engine Technician Internal Medicine 06/12/23 Halie Khan MD [address] [facility] [address] [place] [address] Cigar Head Stringer Critical Care Med 06/12/23 Wilfred Kinsey MD [address] [facility] [place] [address] Consulting Physician Gastroenterology 03/02/24 documented as of this encounter
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
--- OUTSIDE RECORDS SUMMARY | 2024-11-22 12:49 | XMS_ITS | Encounter Summary ---
Author Organization [facility] Address [address] [place] [address] Phone Care Team Providers Care Owner Spa Director Name Role Phone Josué Del Valle MD PhD Unavailable [phone] Kirt Lindsay DO Primary Care Provider [phone] Cal Carranza DO Unavailable [phone] Halie Khan MD Unavailable [phone] Wilfred Kinsey MD Unavailable Reason for Referral * Consultation (Routine) - Authorized Specialty Diagnoses / Procedures Referred By Contac t Referred To Contact Audiology Diagnoses 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 No # of visits: 1 Comments Amikacin monitoring * Cardiology (Routine) - Pending Review Specialty Diagnoses / Procedures Referred By Ana M anderson Referred To Contact Diagnoses 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) Procedures ECG 12 lead Martín Pinzon MD [address] [place] [address] Phone: tel: fax: [facility] (All Locations) Referral ID Status Reason Start Date Expiration Date V isits Requested Visits Authorized [id number] Pending Review 07/07/2024 08/06/2025 1 1 Reason for Visit * Consultation (Routine) - Pending Review Specialty Diagnoses / Procedures Referred By Ana M anderson Referred To Contact Infectious Diseases Diagnoses 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) Pneumonia due to other aerobic gram-negative bacteria, unspecified laterality, unspecified part of lung ([facility]) Martín Pinzon MD [address] [place] [address] Phone: tel: fax: [facility] (All Locations) Referral ID Status Reason Start Date Expiration Date Visits Requested Visits Authorized [id number] Pending Review Specialty Services Required 06/23/2024 07/23/2025 6 6 Encounter Details Date Type Department Care Team (Latest Contact Info) Description 07/07/2024 10:40 AM CDT Office Visit [facility] Infectious Diseases [address] [place] [address] [address] [place] [address] Martín Pinzon MD [address] [place] [address] Nontuberculous mycobacterial disease of lung [...] to quit [facility] Utilities Answer Date Recorded In the past 12 months has th e [employer], gas, oil, or water [employer] threatened to shut off services in your home? No 06/16/2024 Social Connection and Isolation Panel [NHANES] A nswer Date Recorded In a typical week, how many times do you talk on the phone with family, friends, or neighbors? Twice a week 06/16/2024 How often do you get together with friends or re latives? Once a week 06/16/2024 How often do you attend islam or baptism serv ices? Never 06/16/2024 Do [...] time in the past 12 m [facility], were you homeless or living in a senior care (including now)? No 06/16/2024 Personal Safety Answer Date Recorded Have you ever been in or are you currently in a harmful physical or emotional relationship or is someone making you feel afraid or unsafe? 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 documented in this encounter Ordered Prescriptions Prescription [...] physician request. Please contact the laboratory at [phone] if susceptibility testing is needed. MICROBIOLOGY Preliminary Report: No growth of fungus to date 06/16/2024 MICROBIOLOGY 06/16/2024 Direct Stain Examination - Final: Negative for: Pneumocystis jirovecii MICROBIOLOGY (.) 06/16/2024 Final Report: Greater than or equal to 1,000 colonies/ml of Stenotrophomonas maltophilia For susceptibility results, refer to accession number [id number] on the bronch wash culture from06/16/24 Plus [...] HIV Screen: Lab Results Component Value Date [id number] Nonreactive 03/04/2024 CD4: Lab Results Component Value [...] Anterior leads Confirmed by SOHAM WINTERS M.D ([id number]) on 06/17/2024 11:43:02 AM Echo:Results for orders placed during the hospital encounter of 03/27/24 Transthoracic Echo (TTE) Limited/Followup Narrative Adult Echocardiogram + + :Name: BRI JONES Study Date: 03/28/2024 Status: MHB : : Patient Location: [address]^[id number]^MHBHeight: 71 in : : Weight: 134 lbBP: [...] STUDY STUDY INITIALLY PERFORMED: 05/28/[address] [facility]. TYPE OF STUDY: Multiple CT images [...] allogenic stem cell transplant 2009 complicated by eztqg-menykr-kgcv. Diagnosed with pneumonia 03/27/2024 and completed antibiotic [...] images may or may not represent the [place] source data set and thus may contain [...] 3% saline and PEP device twice daily [id number] Smoking cessation Place PICC for amikacin (800 mg M-W-F x 6 wks) Amikacin peak/trough after 3rd dose Azithromycin 250 mg po daily. Increase to 500 mg daily if tolerated. Clofazimine 100 mg po daily (consented today. Request submitted to [employer].) Ethambutol 1200 mg po daily Discuss non-steroid [...] now with expectation of submitting this to [facility] lab on ~07/13. Beginning empiric therapy [...] of lung ([facility]) ([facility]) Cavitary RUL disease with M avium. Susceptibilities are pending. Spoke with laboratory who states that these will take ~3wks to return once submitted. Organism is being subcultured now with expectation of submitting this to [facility] lab on ~07/13. Beginning empiric therapy [...] lung ([facility]/HCC) ([facility]) Expected: 07/07/2024, Expires: 07/07/2025 Scheduled Referrals Name Type Priority Associated Diagnoses Orde r Schedule Ambulatory referral to Audiology (ADULT) Outpatient Referral Routine Nontuberculous mycobacterial disease of lung ([facility]) ([facility]) Expected: 07/21/2024 (Approximate), Expires: 07/07/2025 documented as of this encounter Visit Diagnoses Diagnosis 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) ([facility])- Primary Tobacco abuse Tobacco use disorder Panlobular emphysema ([facility]) Other emphysema Moderate malnutrition ([facility]) AML s/p Allo SCT in 2008 History of pulmonary embolism Personal history of venous thrombosis and embolism Gastroesophageal reflux disease, unspecified whether esophagitis present Pneumonia due to other aerobic gram-negative bacteria, unspecified laterality, unspecified part of lung ([facility]) documented in this encounter Orders Outpatient Referral Count Last Ordered Date Fir st Ordered Date AMB REFERRAL TO INFECTIOUS DISEASE 1 2023 documented in this encounter Additional Health Concerns Infection Onset Date 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 documented as of this encounter Care Teams Owner Spa Director Relationship Specialty Start Date End Date Kirt Lindsay DO PCP - General Internal Medicine 02/02/21 Josué Del Valle MD PhD Medical Oncologist/Preservationist Medical Oncology 08/26/19 Cal Carranza DO [address] [place] [address] Cable Installation Technician Internal Medicine 06/12/23 Halie Khan MD [address] [place], [place] [id number] Insurance Business Analyst Critical Care Med 06/12/23 Wilfred Kinsey MD [address] [address] Consulting Physician Gastroenterology 03/02/24 documented as of this encounter
--- OUTSIDE RECORDS SUMMARY | 2024-11-22 12:50 | XMS_ITS | Encounter Summary ---
Author Organization [facility] Address [address] [place] [address] Phone Care Team Providers Care A P Mechanic Name Role Phone Josué Del Valle MD PhD Unavailable [phone] Kirt Lindsay DO Primary Care Provider [phone] Cal Carranza DO Unavailable [phone] Halie Khan MD Unavailable [phone] Wilfred Kinsey MD Unavailable Encounter Details Date Type Department Care Team (Late st Contact Info) Description 07/02/2024 Telephone [facility] Bone Marrow Transplant [address] [facility] Advanced Medicine 7th Floor, [place] [address] Josué Del Valle MD PhD [address] [place] [address] Social History Tobacco Use Types Packs/Day Years Used Date Smoking Tobacco: Some Days Cigarettes 0.5 40 Started: 1985 Smokeless Tobacco: Never Comments:pt states tried to quit [facility] Utilities Answer Date Recorded [...] How often do you attend hindu or alevism serv ices? 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 Gender Identity Not on file Sexual [...] documented as of this encounter Care Teams A P Mechanic Relationship Specialty Start Date End Date Kirt Lindsay DO PCP - General Internal Medicine 02/02/21 Josué Del Valle MD PhD Medical Oncologist/Furniture Sander Medical Oncology 08/26/19 Cal Carranza DO [address] [address] Ostrich Farm Worker Internal Medicine 06/12/23 Halie Khan MD [address] [address] Study Abroad Coordinator Critical Care Med 06/12/23 Wilfred Kinsey MD [address] [address] Consulting Physician Gastroenterology 03/02/24 documented as of this encounter
--- OUTSIDE RECORDS SUMMARY | 2024-11-22 12:50 | XMS_ITS | Encounter Summary ---
Author Organization [facility] Address [address] [place] [address] Phone Care Team Providers Care Technical Operations Vice President Name Role Phone Josué Del Valle MD PhD Unavailable [phone] Kirt Lindsay DO Primary Care Provider [phone] Cal Carranza DO Unavailable [phone] Halie Khan MD Unavailable [phone] Wilfred Kinsey MD Unavailable Encounter Details Date Type Department Care Team (Late st Contact Info) Description 06/25/2024 Telephone [facility] Bone Marrow Transplant [address] [facility] Advanced Medicine 7th Floor, [place] [address] Josué Rice RN Social History Tobacco Use Types Packs/Day Years Used Date Smoking Tobacco: Some Days Cigarettes 0.5 40 Started: 1985 Smokeless Tobacco: Never Comments:pt states tried to quit [facility] Utilities Answer Date Recorded In the past 12 months has th [employer] electric, gas, oil, or water company threatened [...] How often do you attend catholic or islam serv ices? Never 06/16/2024 Do you belong [...] time in the past 12 m [facility], were you homeless or living in a intermediate (including now)? No 06/16/2024 Personal Safety Answer Date Recorded Have you ever been in or are you currently in a harmful physical or emotional relationship or is someone making you feel afraid or unsafe? 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 Contact: Completed [...] all discharge medications: No, Describe going to picker feeder the Midocin from local pharmacy and gargalin [...] flash glucose scanning reader (FreeStyle Evaristo 2 [place]) [facility] Use to test blood glucose continuously 1 each 1 flash glucose sensor (FreeStyle Evaristo 2 Sensor) kit Change sensor every 14 days 2 kit 0 qwkbcuobuae-ogqexhith-msbsyonp (Trelegy Ellipta) 200-62.5-25 mcg inhaler Inhale 1 puff daily gabapentin (NEURONTIN) 300 mg capsule TAKE ONE CAPSULE BY MOUTH FOUR TIMES DAILY @ [id number]-[id number]-9DB-9PM 120 capsule 11 guaiFENesin ER (MUCINEX) 600 [...] as of this encounter Care Teams Technical Operations Vice President Relationship Specialty Start Date End Date Kirt Lindsay DO PCP - General Internal Medicine 02/02/21 Josué Del Valle MD PhD Medical Oncologist/Production Roustabout Medical Oncology 08/26/19 Cal Carranza DO [address] [place] [address] Hotel Or Motel Receptionist Internal Medicine 06/12/23 Halie Khan MD [address] [facility] [address] [address] First Aid Officer Critical Care Med 06/12/23 Wilfred Kinsey MD [address] [address] Consulting Physician Gastroenterology 03/02/24 documented as of this encounter
--- OUTSIDE RECORDS SUMMARY | 2024-11-22 12:51 | XMS_ITS | Encounter Summary ---
Author Organization [facility] Address [address] [place] [address] Care Team Providers Care Manager Underwriting Name Role Phone Josué Del Valle MD PhD Unavailable [phone] Kirt Lindsay DO Primary Care Provider [phone] Cal Carranza DO Unavailable [phone] Halie Khan MD Unavailable [phone] Wilfred Kinsey MD Unavailable Encounter Details Date Type Department Care Team (Latest Contact Info) Description 06/12/2024 3:01 PM CDT - 06/12/2024 11:59 PM CDT Hospital Encounter [facility] [place] [address] Diagnosis unknown Discharge Disposition: Discharge to home or self care Social History Tobacco Use Types Packs/Day Years Used Date Smoking Tobacco: Some Days Cigarettes 0.5 40 Started: 1985 Smokeless Tobacco: Never Comments:pt states tried to quit [facility] Utilities Answer Date Recorded In the [...] week 03/30/2024 How often do you attend yarsanism or hinduism serv ices? Never 03/30/2024 Do you belong [...] a skilled nursing (including now)? No 03/30/2024 Personal Safety Answer Date Recorded Have you ever been in or are you currently in a harmful physical or emotional relationship or is someone making you feel afraid or unsafe? 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 Gender Identity Not on file Sexual [...] flash glucose scanning reader (FreeStyle Evaristo 2 [place]) [facility] Use to test [...] pulmonary disease, unspecified COPD type ([facility]) Inhale 2 puffs every 6 (six) hours as needed for wheezing 6.7 g 3 01/15/20 24 024 ascorbic acid 500 mg tablet,chewable Take 1 tablet/chew tab (500 mg total) by mouth daily 024 atorvastatin (LIPITOR) 40 mg tabletIndications:AML (acute myeloid leukemia) in remission ([facility]),Type 2 diabetes mellitus with hyperglycemia, with long-term current use of insulin ([facility]),Awfea-epafwc-oyks disease ([facility]),H/O allogeneic bone marrow transplant ([facility]),Pure hypercholesterolemia Take 1 tablet (40 mg total) by mouth daily 30 tablet 6 01/15/20 024 diphenhydrAMINE-acetamin ophen (TYLENOL PM) 25-500 mg tablet Take 2 tablets by mouth nightly as needed for sleep 024 oafmmejcpow-iukbetmbb-zy lanter (Trelegy Ellipta) 200-62.5-25 mcg inhaler Inhale 1 puff daily 024 gabapentin (NEURONTIN) 300 mg capsuleIndications:Acute myeloblastic leukemia, in remission ([facility]) TAKE ONE CAPSULE BY MOUTH FOUR TIMES DAILY @ 0GD-9VE-9GZ-9PM 120 capsule 11 05/13/20 24 025 insulin [...] images may or may not represent the [place] source data set and thus may contain [...] IMAGING STUDY STUDY INITIALLY PERFORMED: 05/28/2024 at [facility]. TYPE OF STUDY: Multiple CT images of [...] allogenic stem cell transplant 2009 complicated by gdnxs-tsfhoi-miyl. ??Diagnosed with pneumonia 03/27/2024 and completed antibiotic [...] IMAGING STUDY STUDY INITIALLY PERFORMED: 05/28/2024 at [facility]. TYPE OF STUDY: Multiple CT images of [...] allogenic stem cell transplant 2009 complicated by wtltt-eswrsd-deqa. Diagnosed with pneumonia 03/27/2024 and completed antibiotic [...] images may or may not represent the [place] source data set and thus may contain [...] unknown documented in this encounter Care Teams Manager Underwriting Relationship Specialty Start Date End Date Kirt Lindsay DO PCP - General Internal Medicine 02/02/21 Josué Del Valle MD PhD Medical Oncologist/Product Handler Medical Oncology 08/26/19 Cal Carranza DO [address] [facility] [address] [place] [address] Stock Dealer Internal Medicine 06/12/23 Halie Khan MD [address] [facility] [address] [place] [address] Earth Mover Critical Care Med 06/12/23 Wilfred Kinsey MD [address] [facility] [address] [place] [address] Consulting Physician Gastroenterology 03/02/24 documented as of this encounter
--- OUTSIDE RECORDS SUMMARY | 2024-11-22 12:51 | XMS_ITS | Encounter Summary ---
Author Organization [facility] Address [address] [place] [address] Phone Care Team Providers Care Apparatus Lineman Name Role Phone Josué Del Valle MD PhD Unavailable [phone] Kirt Lindsay DO Primary Care Provider [phone] Cal Carranza DO Unavailable [phone] Halie Khan MD Unavailable [phone] Wilfred Kinsey MD Unavailable Encounter Details Date Type Department Care Team (Late st Contact Info) Description 06/15/2024 Telephone [facility] Bone Marrow Transplant [address] [facility] Advanced Medicine 7th Floor, [place] [address] Josué Rice RN Social History Tobacco Use Types Packs/Day Years Used Date Smoking Tobacco: Some Days Cigarettes 0.5 40 Started: 1985 Smokeless Tobacco: Never Comments:pt states tried to quit [facility] Utilities Answer Date Recorded In the past 12 months has th [employer] electric, gas, oil, or water company threatened [...] week 06/16/2024 How often do you attend sikhism or shinto serv ices? Never 06/16/2024 Do you belong to any clubs o r organizations such as sikhism groups, unions, fraternal or athletic groups, or [...] in the past 12 m [facility], were you homeless or living in a group home (including now)? No 06/16/2024 Personal Safety Answer Date Recorded Have you ever been in or are you currently in a harmful physical or emotional relationship or is someone making you feel afraid or unsafe? 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 Gender Identity Not on file Sexual [...] on filedocumented in this encounter Care Teams Apparatus Lineman Relationship Specialty Start Date End Date Kirt Lindsay DO PCP - General Internal Medicine 02/02/21 Josué Del Valle MD PhD Medical Oncologist/Crossband Layer Medical Oncology 08/26/19 Cal Carranza DO [address] [facility] [address] [place] [address] Food And Nutrition Services Supervisor Internal Medicine 06/12/23 Halie Khan MD [address] [facility] [address] [place] [address] Dock Manager Critical Care Med 06/12/23 Wilfred Kinsey MD [address] [facility] [address] [place] [address] Consulting Physician Gastroenterology 03/02/24 documented as of this encounter
--- OUTSIDE RECORDS SUMMARY | 2024-11-22 12:51 | XMS_ITS | Encounter Summary ---
Author Organization [facility] Healthcare Address [address] [place] [address] Care Team Providers Care Concaver Name Role Phone Josué Del Valle MD PhD Unavailable [phone] Kirt Lindsay DO Primary Care Provider [phone] Cal Carranza DO Unavailable [phone] Halie Khan MD Unavailable [phone] Wilfred Kinsey MD Unavailable Encounter Details Date Type Department Care Team (Latest Contact Info) Description 06/12/2024 3:21 PM CDT - 06/12/2024 11:59 PM CDT Hospital Encounter [facility] [address] [place] [id number] Discharge Disposition: Discharge to home or self [...] week 03/30/2024 How often do you attend restorationist or caodaism serv ices? Never 03/30/2024 Do you belong to any clubs o r organizations such as restorationist groups, unions, fraternal or athletic groups, or [...] a group home (including now)? No 03/30/2024 Personal Safety Answer Date Recorded Have you ever been in or are you currently in a harmful physical or emotional relationship or is someone making you feel afraid or unsafe? 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 Gender Identity Not on file Sexual [...] flash glucose scanning reader (FreeStyle Evaristo 2 [place]) [facility] [place] Use to test [...] obstructive pulmonary disease, unspecified COPD type ([facility]) Inhale 2 puffs every 6 (six) hours as needed for wheezing 6.7 g 3 01/15/20 24 024 ascorbic acid 500 mg tablet,chewable Take 1 tablet/chew tab (500 mg total) by mouth daily 024 atorvastatin (LIPITOR) 40 mg tabletIndications:AML (acute myeloid leukemia) in remission ([facility]),Type 2 diabetes mellitus with hyperglycemia, with long-term current use of insulin ([facility]),Vrtpx-dzgycs-claj disease ([facility]),H/O allogeneic bone marrow transplant ([facility]),Pure hypercholesterolemia Take 1 tablet (40 mg total) by mouth daily 30 tablet 6 01/15/20 024 diphenhydrAMINE-acetamin ophen (TYLENOL PM) 25-500 mg tablet Take 2 tablets by mouth nightly as needed for sleep 024 fkzslpysboh-fzejalnod-iu lanter (Trelegy Ellipta) 200-62.5-25 mcg inhaler Inhale 1 puff daily 024 gabapentin (NEURONTIN) 300 mg capsuleIndications:Acute myeloblastic leukemia, in remission ([facility]) TAKE ONE CAPSULE BY MOUTH FOUR TIMES DAILY @ [id number] 120 capsule 11 05/13/20 24 025 insulin [...] [facility] Radi[facility]. Narrative RAD_PACS_[facility] - 06/12/2024 3:21 PM CDT EXAMINATION: ??Images For Reference Purposes Only us Josué Del Valle MD PhD IMG CT PROCEDURES Final Result RAD_PACS[facility] documented in this encounter Visit Diagnoses Not on filedocumented in this encounter Care Teams Concaver Relationship Specialty Start Date End Date Kirt Lindsay DO PCP - General Internal Medicine 02/02/21 Josué Del Valle MD PhD Medical Oncologist/Tunnel Elastic Operator Chainstitch Medical Oncology 08/26/19 Cal Carranza DO [address] [address] Senior Developer Internal Medicine 06/12/23 Halie Khan MD [address] [id number] Overhead Line Worker Critical Care Med 06/12/23 Wilfred Kinsey MD [address] [address] Consulting Physician Gastroenterology 03/02/24 documented as of this encounter
--- OUTSIDE RECORDS SUMMARY | 2024-11-22 12:51 | XMS_ITS | Encounter Summary ---
Author Organization [facility] Address [address] [place] [address] Phone Care Team Providers Care Yard Stocker Name Role Phone Josué Del Valle MD PhD Unavailable [phone] Kirt Lindsay DO Primary Care Provider [phone] Cal Carranza DO Unavailable [phone] Halie Khan MD Unavailable [phone] Wilfred Kinsey MD Unavailable Encounter Details Date Type Department Care Team (Late st Contact Info) Description 06/11/[address] [facility] Bone Marrow Transplant [address] [facility] Advanced Medicine 7th Floor, [place] [address] Josué Del Valle MD PhD [address]ONE [address]ARROW [address]ANS[address] [place] [address] Social History Tobacco Use Types Packs/Day Years Used Date Smoking Tobacco: Some Days Cigarettes 0.5 40 Started: 1984 Smokeless Tobacco: Never Comments:pt states tried to quit [facility] Utilities Answer Date Recorded In [...] week 03/30/2024 How often do you attend sabianist or hoahaoism serv ices? Never 03/30/2024 Do [...] in a alf (including now)? No 03/30/2024 Personal Safety Answer Date Recorded Have you ever been in or are you currently in a harmful physical or emotional relationship or is someone making you feel afraid or unsafe? 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 documented in this encounter Plan of Treatment Not on file documented as of this encounter Visit Diagnoses Not on filedocumented in this encounter Care Teams Yard Stocker Relationship Specialty Start Date End Date Kirt Lindsay DO PCP - General Internal Medicine 02/02/21 Josué Del Valle MD PhD Medical Oncologist/Transmitter Chief Medical Oncology 08/26/19 Cal Carranza DO [address] [facility] [address] [place] [address] Deck Officer Internal Medicine 06/12/23 Halie Khan MD [address] [facility] [address] [place] [address] Gin Feeder Critical Care Med 06/12/23 Wilfred Kinsey MD [address] [address] Consulting Physician Gastroenterology 03/02/24 documented as of this encounter
--- OUTSIDE RECORDS SUMMARY | 2024-11-22 12:51 | XMS_ITS | Encounter Summary ---
Author Organization [facility] Address [address] [place] [address] Phone Care Team Providers Care Crossing Watchman Name Role Phone Josué Del Valle MD PhD Unavailable [phone] Kirt Lindsay DO Primary Care Provider [phone] Cal Carranza DO Unavailable [phone] Halie Khan MD Unavailable [phone] Wilfred Kinsey MD Unavailable Encounter Details Date Type Department Care Team (Late st Contact Info) Description 06/15/2024 Telephone [facility] Bone Marrow Transplant [address] 7th [address], [place] [address] Josué Rice RN Social History Tobacco Use Types Packs/Day Years Used Date Smoking Tobacco: Some Days Cigarettes 0.5 40 Started: 1984 Smokeless Tobacco: Never Comments:pt states tried to quit [facility] Utilities Answer Date Recorded In the past 12 months has th [employer] electric, gas, oil, or water company threatened [...] week 06/16/2024 How often do you attend amish or holiness serv ices? 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 [place]. [place] [id number] documented in this encounter Plan of Treatment Not on file documented as of this encounter Visit Diagnoses Not on filedocumented in this encounter Care Teams Crossing Watchman Relationship Specialty Start Date End Date Kirt Lindsay DO PCP - General Internal Medicine 02/02/21 Josué Del Valle MD PhD Medical Oncologist/Database Administrator Medical Oncology 08/26/19 Cal Carranza DO [address] [place] [address] Hoop Machine Operator Internal Medicine 06/12/23 Halie Khan MD [address] [facility] [address] [place] [address] Turbine Assembler Critical Care Med 06/12/23 Wilfred Kinsey MD [address] [address] Consulting Physician Gastroenterology 03/02/24 documented as of this encounter
--- OUTSIDE RECORDS SUMMARY | 2024-11-22 12:51 | XMS_ITS | Encounter Summary ---
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 Plan Includes: Plan to discharge home with caregiver Lamar [phone]. Shower chair at home. Caregiver assists with dressing, meal prep, patient bathes, feeds, and transfers self but unsteady gait. [facility] Patient oxygen 3-5L via [place] continuous ; fax: [phone] (specify C [facility] patient). Requests new walk test before discharge. Requesting 2 wheeled walker Primary Source of Transportation: Does the patient need discharge transport arranged?: No (06/16/24 1020) Health Insurance Coverage: [facility] medicare Prescription Coverage: yes Pharmacy: Prefers [facility] mobile pharmacy for discharge medications [id number] - [place], [place] - [address] [place] [address] Primary Care Provider: Kirt Lindsay, - verified Prior to Admission: Functional Status: Moderate assist with ADLs Primary Caregiver: Private caregiver (Caregiver Lamar Kaiser [phone]) Support System: None Home Care Services: No Durable Medical Equipment: Shower chair, Oxygen Oxygen Detail: [facility] Oxygen 3-5L via [place] continuous DME Name and Contact Number: Leonel [place] office: [phone]; fax: [phone] (specify Brandon patient) Living Arrangements: Other (Comment) (caregiver Lamar) [...] spoke with patient's caregiver Lamar via telephone [phone] to complete initial assessment. Address and phone number verified with face sheet. Patient lives at home with caregiver Lamar and is moderate assistance with activities of daily living. No home health. Shower chair for durable medical equipment. Caregiver assists with dressing, meal prep, patient bathes, feeds, and transfers self but unsteady gait. [facility] Patient oxygen 3-5L via [place] continuous ; fax: [phone] (specify [place] patient). Requesting 2 wheeled walker. Treatment Plant Operator role explained. Patient's Identified Problem/Goal Problem: Ensure [...] Collaboration with Patient, Provider, Direct Care Nurse, Finance And Administration Manager, and other members of theHealth Care Team to assure needed interventions completed. 2. Return patient to optimal level of self-care post discharge. 3. Treatment Plant Operator will follow for Discharge Planning - [...] sedation Informed Consent: Benefits, risks, alternatives discussed; patient/branch customer service representative accepts/agrees tosedation/anesthesia plan and to the [...] PM CDTAssociated Problem(s): DVT (deep venous thrombosis) ([facility]/HCC) ([facility]) DVT lower ext [...] followed by Decitabine maintenance on the [facility] 49311 protocol. 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 BID and [...] POCT ORDERABLES - DEVIC E Final [facility] [place] [address] * POCT glucose (06/24/2024 12:58 PM CDT) Glucose, POC 191 70 - 199 mg/dL Blood 06/24/2024 12:5 8 PM CDT 06/24/2024 12:58 PM CDT us Marcela Silva MD LAB POCT ORDERABLES - DEVIC E Final Result Performing Organization Address [facility] de Phone Number [facility] [place] [address] * POCT glucose (06/24/2024 7:42 AM CDT) [facility] Glucose, POC 143 70 - 199 mg/dL Blood 06/24/2024 7:42 AM CDT 06/24/2024 7:42 AM CDT us Marcela Silva MD LAB POCT ORDERABLES - DEVIC E Final Result Performing Organization Address [facility] de Phone Number [facility] [place] [address] * eGFR (06/24/2024 3:56 AM CDT) [facility] eGFR >90 >=60 mL/min/1. 73 m2 [...] MD PhD LAB BLOOD ORDERABLES Final Result [facility] Department [place] [address] * (ABNORMAL) Manual Differential (06/24/2024 3:56 AM CDT) Differential Manual Cells Counted 116 [facility] Neutrophil abs 8.6(H) 1.5 - 6.5 K/cumm [facility] Imm gran abs 0.0 0.0 - 0.1 K/cumm [facility] Lymphocyte abs 4.3(H) 0.8 - 3.3 K/cumm [facility] Monocyte abs 2.3(H) 0.2 - 0.8 K/cumm [facility] Eosinophil abs 0.4 0.0 - 0.5 K/cumm [facility] Neutrophil pct 55.1 % [facility] Comment: Interpretive Data Percent cell count reference ranges are not reported, since discordance with absolute values may lead to misinterpretation of CBC data. Current Interpretive Data was last revised on 2018. Lymphocyte pct 27.6 % [facility] Comment: Interpretive Data Percent cell count reference ranges are not reported, since discordance with absolute values may lead to misinterpretation of CBC data. Current Interpretive Data was last revised on 2018. Monocyte pct 14.7 % [facility] Comment: Interpretive Data Percent cell count reference ranges are not reported, since discordance with absolute values may lead to misinterpretation of CBC data. Current Interpretive Data was last revised on 2018. Eosinophil pct 2.6 % [facility] Comment: Interpretive Data Percent cell count reference ranges are not reported, since discordance with absolute values may lead to misinterpretation of CBC data. Current Interpretive Data was last revised on 2018. RBC morphology Present(A) [facility] Anisocytosis Marked(A) [facility] Macrocytes > 15/HPF(A) [facility] Platelet estimate Adequate [facility] Blood 06/24/2024 3:56 AM CDT 06/24/2024 4:15 AM CDT us Parviz Hannon MD PhD LAB BLOOD ORDERABLES Edited Result - Final [facility] Department [place] [address] * (ABNORMAL) CBC without differential (06/24/2024 3:56 AM CDT) WBC 15.7(H) 3.8 - 9.9 K/cumm Hgb 10.7(L) 13.0 - 17.5 g/dL [facility] Hct 32.8(L) 38.9 - 50.3 % [facility] Plt 395 150 - 400 K/cumm [facility] MPV 10.4 9.1 - 12.3 fL [facility] RBC 3.30(L) 4.30 - 5.80 M/cumm [facility] MCV 99.4(H) 81.3 - 96.4 fL [facility] MCH 32.4 27.1 - 33.3 pg [facility] MCHC 32.6 32.3 - 35.7 g/dL [facility] RDW CV 15.7(H) 11.1 - 14.9 % [facility] RDW SD 57.4(H) 35.7 - 48.1 fL [facility] NRBC abs 0.39(H) 0.00 - 0.01 K/cumm [facility] Blood 06/24/2024 3:56 AM CDT 06/24/2024 4:15 AM CDT Parviz Hannon MD PhD LAB BLOOD ORDERABLES Final Result [facility] Department [place] [address] * (ABNORMAL) Basic metabolic panel (06/24/2024 3:56 AM CDT) Sodium 140 135 - 145 mmol/L Potassium, pl 4.7 3.3 - 4.9 mmol/L [facility] Chloride 98 97 - 110 mmol/L [facility] CO2 34(H) 22 - 32 mmol/L [facility] Anion gap 8 2 - 15 mmol/L [facility] BUN 30(H) 6 - 25 mg/dL [facility] Creatinine 0.71(L) 0.80 - 1.30 mg/dL [facility] Glucose 119 70 - 199 mg/dL [facility] Comment: Interpretive Data Fasting glucose >/= 126 [...] 2022. Calcium 9.1 8.5 - 10.3 mg/dL [facility] Blood 06/24/2024 3:56 AM CDT 06/24/2024 4:15 AM CDT Narrative [facility] - 06/24/2024 4:45 AM CDT Daily except Saturday and . Morning draw. Parviz Hannon MD PhD LAB BLOOD ORDERABLES Final Result Performing Organization Address [facility] de Phone Number [facility] [place] [address] * Phosphorus (06/24/2024 3:56 AM CDT) Phosphorus, pl 2.8 2.3 - 4.5 mg/dL Blood 06/24/2024 3:56 AM CDT 06/24/2024 4:15 AM CDT Parviz Hannon MD PhD LAB BLOOD ORDERABLES Final Result Performing Organization Address [facility] de Phone Number [facility] [place] [address] * Magnesium (06/24/2024 3:56 AM CDT) Magnesium 1.8 1.4 - 2.5 mg/dL Blood 06/24/2024 3:56 AM CDT 06/24/2024 4:15 AM CDT Parviz Hannon MD PhD LAB BLOOD ORDERABLES Final Result Performing Organization Address [facility] de Phone Number [facility] [place] [address] * POCT glucose (06/23/2024 8:22 PM CDT) Glucose, POC 150 70 - 199 mg/dL Blood 06/23/2024 8:22 PM CDT 06/23/2024 8:22 PM CDT Marcela Silva MD LAB POCT ORDERABLES - DEVIC E Final Result Performing Organization Address [facility] Co de Phone Number [facility] Department [place] [address] * (ABNORMAL) POCT glucose (06/23/2024 4:43 PM CDT) Glucose, POC 274(H) 70 - 199 mg/dL Blood 06/23/2024 4:43 PM CDT 06/23/2024 4:43 PM CDT us Marcela Silva MD LAB POCT ORDERABLES - DEVIC E Final Result Performing Organization Address City/[facility] [place] [address] * (ABNORMAL) POCT glucose (06/23/2024 11:26 AM CDT) [facility] Signature Glucose, POC 222(H) 70 - 199 mg/dL Blood 06/23/2024 11:2 6 AM CDT 06/23/2024 11:26 AM CDT us Marcela Silva MD LAB POCT ORDERABLES - DEVIC E Final Result Performing Organization Address [facility] [place] [address] * POCT glucose (06/23/2024 8:03 AM CDT) [facility] Glucose, POC 152 70 - 199 mg/dL Blood 06/23/2024 8:03 AM CDT 06/23/2024 8:03 AM CDT us Marcela Silva MD LAB POCT ORDERABLES - DEVIC E Final Result Performing Organization Address [facility] Co de Phone Number [facility] [place] [address] * eGFR (06/23/2024 3:34 AM CDT) [facility] eGFR >90 >=60 mL/min/1. 73 m2 [...] MD PhD LAB BLOOD ORDERABLES Final Result [facility] Department of Laboratories [place], [place] [id number] * (ABNORMAL) Manual Differential (06/23/2024 3:34 AM CDT) [facility] Differential Manual Cells Counted 114 [facility] Neutrophil abs 7.9(H) 1.5 - 6.5 K/cumm [facility] Imm gran abs 0.0 0.0 - 0.1 K/cumm [facility] Lymphocyte abs 4.0(H) 0.8 - 3.3 K/cumm [facility] Monocyte abs 2.0(H) 0.2 - 0.8 K/cumm [facility] Eosinophil abs 0.4 0.0 - 0.5 K/cumm [facility] Neutrophil pct 55.3 % [facility] Comment: Interpretive Data Percent cell count reference ranges are not reported, since discordance with absolute values may lead to misinterpretation of CBC data. Current Interpretive Data was last revised on 2018. Lymphocyte pct 28.1 % [facility] Comment: Interpretive Data Percent cell count reference ranges are not reported, since discordance with absolute values may lead to misinterpretation of CBC data. Current Interpretive Data was last revised on 2018. Monocyte pct 14.0 % [facility] Comment: Interpretive Data Percent cell count reference ranges are not reported, since discordance with absolute values may lead to misinterpretation of CBC data. Current Interpretive Data was last revised on 2018. Eosinophil pct 2.6 % [facility] Comment: Interpretive Data Percent cell count reference ranges are not reported, since discordance with absolute values may lead to misinterpretation of CBC data. Current Interpretive Data was last revised on 2018. RBC morphology Present(A) [facility] Anisocytosis Marked(A) [facility] Macrocytes > 15/HPF(A) [facility] Platelet estimate Adequate [facility] Blood 06/23/2024 3:34 AM CDT 06/23/2024 3:58 AM CDT us Parviz Hannon MD PhD LAB BLOOD ORDERABLES Edited Result - Final [facility] Department [place] [address] * (ABNORMAL) CBC without differential (06/23/2024 3:34 AM CDT) WBC 14.3(H) 3.8 - 9.9 K/cumm Hgb 9.3(L) 13.0 - 17.5 g/dL [facility] Hct 27.1(L) 38.9 - 50.3 % [facility] Plt 358 150 - 400 K/cumm [facility] MPV 10.5 9.1 - 12.3 fL [facility] RBC 2.75(L) 4.30 - 5.80 M/cumm [facility] MCV 98.5(H) 81.3 - 96.4 fL [facility] MCH 33.8(H) 27.1 - 33.3 pg [facility] MCHC 34.3 32.3 - 35.7 g/dL [facility] RDW CV 15.3(H) 11.1 - 14.9 % [facility] RDW SD 54.9(H) 35.7 - 48.1 fL [facility] NRBC abs 0.60(H) 0.00 - 0.01 K/cumm [facility] Blood 06/23/2024 3:34 AM CDT 06/23/2024 3:58 AM CDT Parviz Hannon MD PhD LAB BLOOD ORDERABLES Final Result [facility] Department [place] [address] * (ABNORMAL) Basic metabolic panel (06/23/2024 3:34 AM CDT) Sodium 141 135 - 145 mmol/L Potassium, pl 3.4 3.3 - 4.9 mmol/L [facility] Chloride 99 97 - 110 mmol/L [facility] CO2 35(H) 22 - 32 mmol/L [facility] Anion gap 7 2 - 15 mmol/L [facility] BUN 34(H) 6 - 25 mg/dL [facility] Creatinine 0.79(L) 0.80 - 1.30 mg/dL [facility] Glucose 136 70 - 199 mg/dL [facility] Comment: Interpretive Data Fasting glucose >/= 126 [...] 2022. Calcium 8.7 8.5 - 10.3 mg/dL [facility] Blood 06/23/2024 3:34 AM CDT 06/23/2024 3:58 AM CDT Narrative [facility] - 06/23/2024 4:29 AM CDT Daily except Saturday and . Morning draw. Parviz Hannon MD PhD LAB BLOOD ORDERABLES Final Result Performing Organization Address [facility] de Phone Number [facility] Department [place] [address] * Phosphorus (06/23/2024 3:34 AM CDT) Phosphorus, pl 3.7 2.3 - 4.5 mg/dL Blood 06/23/2024 3:34 AM CDT 06/23/2024 3:58 AM CDT Parviz Hannon MD PhD LAB BLOOD ORDERABLES Final Result Performing Organization Address [facility] de Phone Number [facility] Department [place] [address] * Magnesium (06/23/2024 3:34 AM CDT) Magnesium 1.7 1.4 - 2.5 mg/dL Blood 06/23/2024 3:34 AM CDT 06/23/2024 3:58 AM CDT Parviz Hannon MD PhD LAB BLOOD ORDERABLES Final Result Performing Organization Address [facility] [place] [address] * (ABNORMAL) POCT glucose (06/22/2024 8:43 PM CDT) Glucose, POC 233(H) 70 - 199 mg/dL Blood 06/22/2024 8:43 PM CDT 06/22/2024 8:43 PM CDT us Marcela Silva MD LAB POCT ORDERABLES - [place] [address] * POCT glucose (06/22/2024 5:15 PM CDT) Glucose, POC 161 70 - 199 mg/dL Blood 06/22/2024 5:15 PM CDT 06/22/2024 5:15 PM CDT us Marcela Silva MD LAB POCT ORDERABLES - DEVIC E Final Result Performing Organization Address City/[facility]/[place] [address] * (ABNORMAL) POCT glucose (06/22/2024 11:35 AM CDT) Glucose, POC 307(H) 70 - 199 mg/dL Blood 06/22/2024 11:3 5 AM CDT 06/22/2024 11:35 AM CDT us Marcela Silva MD LAB POCT ORDERABLES - DEVIC E Final Result [facility] [place] [address] * POCT glucose (06/22/2024 7:40 AM CDT) Glucose, POC 190 70 - 199 mg/dL Blood 06/22/2024 7:40 AM CDT 06/22/2024 7:40 AM CDT us Marcela Silva MD LAB POCT ORDERABLES - DEVIC E Final Result Performing Organization Address City/State/[facility] Co de Phone Number [facility] Department [place] [address] * eGFR (06/22/2024 4:39 AM CDT) eGFR [...] BLOOD ORDERABLES Final Result ZULEMA DENT Daniela [facility] Department [place] [address] * (ABNORMAL) Manual Differential (06/22/2024 4:39 AM CDT) Differential Manual Cells Counted 117 [facility] Neutrophil abs 7.4(H) 1.5 - 6.5 K/cumm [facility] Imm gran abs 0.1 0.0 - 0.1 K/cumm [facility] Lymphocyte abs 3.2 0.8 - 3.3 K/cumm [facility] Monocyte abs 2.5(H) 0.2 - 0.8 K/cumm [facility] Neutrophil pct 56.4 % [facility] Comment: Interpretive Data Percent cell count reference ranges are not reported, since discordance with absolute values may lead to misinterpretation of CBC data. Current Interpretive Data was last revised on 2018. Lymphocyte pct 23.9 % [facility] Comment: Interpretive Data Percent cell count reference ranges are not reported, since discordance with absolute values may lead to misinterpretation of CBC data. Current Interpretive Data was last revised on 2018. Monocyte pct 18.8 % [facility] Comment: Interpretive Data Percent cell count reference ranges are not reported, since discordance with absolute values may lead to misinterpretation of CBC data. Current Interpretive Data was last revised on 2018. Metamyelocyte pct 0.9 % [facility] RBC morphology Present(A) [facility] Anisocytosis Moderate(A) [facility] Macrocytes 8-15/HPF(A) [facility] Target cells 3-7/HPF(A) [facility] Platelet estimate Adequate [facility] Blood 06/22/2024 4:39 AM CDT 06/22/2024 4:50 AM CDT us Parviz Hannon MD PhD LAB BLOOD ORDERABLES Edited Result - Final ZULEMA Suarez [facility] Department [place] [address] * (ABNORMAL) CBC without differential (06/22/2024 4:39 AM CDT) [facility] WBC 13.2(H) 3.8 - 9.9 K/cumm Hgb 10.2(L) 13.0 - 17.5 g/dL [facility] Hct 29.8(L) 38.9 - 50.3 % [facility] Plt 403(H) 150 - 400 K/cumm [facility] MPV 9.9 9.1 - 12.3 fL [facility] RBC 3.02(L) 4.30 - 5.80 M/cumm [facility] MCV 98.7(H) 81.3 - 96.4 fL [facility] MCH 33.8(H) 27.1 - 33.3 pg [facility] MCHC 34.2 32.3 - 35.7 g/dL [facility] RDW CV 15.1(H) 11.1 - 14.9 % [facility] RDW SD 54.9(H) 35.7 - 48.1 fL [facility] NRBC abs 0.54(H) 0.00 - 0.01 K/cumm [facility] Blood 06/22/2024 4:39 AM CDT 06/22/2024 4:50 AM CDT us Parviz Hannon MD PhD LAB BLOOD ORDERABLES Final Result [facility] Department [place] [address] * (ABNORMAL) Protime-INR (06/22/2024 4:39 AM CDT) [facility] PT 20.3(H) 9.7 - 13.0 sec INR 1.86(H) 0.90 - 1.20 [facility] Comment: Interpretive data Oral anticoagulant therapeutic ranges: [...] Final Result Performing Organization Address [facility] de Phone Number [facility] [place] [address] * aPTT (06/22/2024 4:39 AM CDT) aPTT [...] Result Performing Organization Address [facility] de Phone Number [facility] [place] [address] * (ABNORMAL) Lactate dehydrogenase (LD) (06/22/2024 4:39 AM CDT) Lactate dehydrogenase (LDH) 272(H) 100 - 250 Units/L Blood 06/22/2024 4:39 AM CDT 06/22/2024 4:50 AM CDT Narrative [facility] - 06/22/2024 5:21 AM CDT Saturday and only. Morning draw. Parviz Hannon MD PhD LAB BLOOD ORDERABLES Final Result Performing Organization Address [facility]/ZIP Co de Phone Number [facility] Department [place] [address] * Uric acid (06/22/2024 4:39 AM CDT) [facility] Uric acid 3.0 3.0 - 8.0 mg/dL Blood 06/22/2024 4:39 AM CDT 06/22/2024 4:50 AM CDT [facility] 06/22/2024 5:21 AM CDT Saturday and only. Morning draw. . us Parviz Hannon MD PhD LAB BLOOD ORDERABLES Final Result Performing Organization Address [facility] de Phone Number [facility] [place] [address] * (ABNORMAL) Comprehensive metabolic panel (06/22/2024 4:39 AM CDT) [facility] Sodium 140 135 - 145 mmol/L Potassium, pl 3.5 3.3 - 4.9 mmol/L [facility] Chloride 99 97 - 110 mmol/L [facility] CO2 35(H) 22 - 32 mmol/L [facility] Anion gap 6 2 - 15 mmol/L [facility] BUN 35(H) 6 - 25 mg/dL [facility] Creatinine 0.79(L) 0.80 - 1.30 mg/dL [facility] Glucose 203(H) 70 - 199 mg/dL [facility] Comment: Interpretive Data Fasting glucose >/= 126 [...] 2022. Calcium 8.9 8.5 - 10.3 mg/dL [facility] Bilirubin, total 0.2 0.1 - 1.2 mg/dL [facility] Protein, pl 6.8 6.5 - 8.5 g/dL [facility] Albumin 3.0(L) 3.5 - 5.0 g/dL [facility] Alk phos 170(H) 40 - 130 Units/L [facility] ALT 65(H) 7 - 55 Units/L [facility] AST 57(H) 10 - 50 Units/L [facility] Blood 06/22/2024 4:39 AM CDT 06/22/2024 4:50 AM CDT Narrative [facility] - 06/22/2024 5:21 AM CDT Saturday and only. Morning draw. Parviz Hannon MD PhD LAB BLOOD ORDERABLES Final Result Performing Organization Address [facility] Co de Phone Number [facility] [place] [address] * Type and screen (06/22/2024 4:39 AM CDT) ABO Rh A Positive Ursula, indirect Negative [facility] Blood 06/22/2024 4:39 AM CDT 06/22/2024 5:43 AM CDT Narrative [facility] - 06/22/2024 6:44 AM CDT Has the patient had Daratumumab or Isatuximab in the past 6 months?->Unknown Parviz Hannon MD PhD LAB BLOOD BANK TEST ORDERABLES Final Result Performing Organization Address City/[facility]/ZIP Co de Phone Number [facility] [place] [address] * Phosphorus (06/22/2024 4:39 AM CDT) Phosphorus, pl 3.5 2.3 - 4.5 mg/dL Blood 06/22/2024 4:39 AM CDT 06/22/2024 4:50 AM CDT Parviz Hannon MD PhD LAB BLOOD ORDERABLES Final Result Performing Organization Address [facility] de Phone Number [facility] Department [place] [address] * (ABNORMAL) Magnesium (06/22/2024 4:39 AM CDT) Magnesium 1.3(L) 1.4 - 2.5 mg/dL Blood 06/22/2024 4:39 AM CDT 06/22/2024 4:50 AM CDT us Parviz Hannon MD PhD LAB BLOOD ORDERABLES Final Result Performing Organization Address [facility] de Phone Number [facility] [place] [address] * POCT glucose (06/21/2024 9:37 PM CDT) Glucose, POC 122 70 - 199 mg/dL Blood 06/21/2024 9:37 PM CDT 06/21/2024 9:37 PM CDT us Marcela Silva MD LAB POCT ORDERABLES - DEVIC E Final Result Performing Organization Address [facility] de Phone Number [facility] [place] [address] * (ABNORMAL) POCT glucose (06/21/2024 7:46 PM CDT) Glucose, POC 264(H) 70 - 199 mg/dL Blood 06/21/2024 7:46 PM CDT 06/21/2024 7:46 PM CDT us Marcela Silva MD LAB POCT ORDERABLES - DEVIC E Final Result Performing Organization Address [facility] de Phone Number [facility] [place] [address] * POCT glucose (06/21/2024 1:53 PM CDT) Glucose, POC 157 70 - 199 mg/dL Blood 06/21/2024 1:53 PM CDT 06/21/2024 1:53 PM CDT us Marcela Silva MD LAB POCT ORDERABLES - DEVIC E Final Result Performing Organization Address [facility] de Phone Number [facility] [place] [address] * POCT glucose (06/21/2024 7:25 AM CDT) Glucose, POC 160 70 - 199 mg/dL Blood 06/21/2024 7:25 AM CDT 06/21/2024 7:25 AM CDT Marcela Silva MD LAB POCT ORDERABLES - DEVIC E Final Result Performing Organization Address [facility] de Phone Number [facility] [place] [address] * eGFR (06/21/2024 2:32 AM CDT) eGFR [...] MD PhD LAB BLOOD ORDERABLES Final Result [facility] Department [place] [address] * (ABNORMAL) Manual Differential (06/21/2024 2:32 AM CDT) Differential Manual Cells Counted 114 [facility] Neutrophil abs 9.7(H) 1.5 - 6.5 K/cumm [facility] Imm gran abs 0.0 0.0 - 0.1 K/cumm [facility] Lymphocyte abs 2.7 0.8 - 3.3 K/cumm [facility] Monocyte abs 1.6(H) 0.2 - 0.8 K/cumm [facility] Neutrophil pct 69.3 % [facility] Comment: Interpretive Data Percent cell count reference ranges are not reported, since discordance with absolute values may lead to misinterpretation of CBC data. Current Interpretive Data was last revised on 2018. Lymphocyte pct 19.3 % [facility] Comment: Interpretive Data Percent cell count reference ranges are not reported, since discordance with absolute values may lead to misinterpretation of CBC data. Current Interpretive Data was last revised on 2018. Monocyte pct 11.4 % [facility] Comment: Interpretive Data Percent cell count reference ranges are not reported, since discordance with absolute values may lead to misinterpretation of CBC data. Current Interpretive Data was last revised on 2018. RBC morphology Present(A) [facility] Anisocytosis Marked(A) [facility] Macrocytes > 15/HPF(A) [facility] Platelet estimate Adequate [facility] Blood 06/21/2024 2:32 AM CDT 06/21/2024 2:55 AM CDT us Parviz Hannon MD PhD LAB BLOOD ORDERABLES Edited Result - Final [facility] Department [place] [address] * (ABNORMAL) CBC without differential (06/21/2024 2:32 AM CDT) WBC 14.0(H) 3.8 - 9.9 K/cumm Hgb 10.5(L) 13.0 - 17.5 g/dL [facility] Hct 32.2(L) 38.9 - 50.3 % [facility] Plt 440(H) 150 - 400 K/cumm [facility] MPV 10.2 9.1 - 12.3 fL [facility] RBC 3.24(L) 4.30 - 5.80 M/cumm [facility] MCV 99.4(H) 81.3 - 96.4 fL [facility] MCH 32.4 27.1 - 33.3 pg [facility] MCHC 32.6 32.3 - 35.7 g/dL [facility] RDW CV 15.0(H) 11.1 - 14.9 % [facility] RDW SD 55.0(H) 35.7 - 48.1 fL [facility] NRBC abs 0.22(H) 0.00 - 0.01 K/cumm [facility] Blood 06/21/2024 2:32 AM CDT 06/21/2024 2:55 AM CDT Parviz Hannon MD PhD LAB BLOOD ORDERABLES Final Result [facility] Department [place] [address] * (ABNORMAL) Basic metabolic panel (06/21/2024 2:32 AM CDT) [facility] Sodium 141 135 - 145 mmol/L Potassium, pl 3.3 3.3 - 4.9 mmol/L [facility] Chloride 97 97 - 110 mmol/L [facility] CO2 34(H) 22 - 32 mmol/L [facility] Anion gap 10 2 - 15 mmol/L [facility] BUN 20 6 - 25 mg/dL [facility] Creatinine 0.59(L) 0.80 - 1.30 mg/dL [facility] Glucose 240(H) 70 - 199 mg/dL [facility] Comment: Interpretive Data Fasting glucose >/= 126 [...] 2022. Calcium 8.9 8.5 - 10.3 mg/dL [facility] Blood 06/21/2024 2:32 AM CDT 06/21/2024 2:55 AM CDT Narrative [facility] - 06/21/2024 3:25 AM CDT Daily except Saturday and . Morning draw. Parviz Hannon MD PhD LAB BLOOD ORDERABLES Final Result [facility] [place] [address] * (ABNORMAL) Phosphorus (06/21/2024 2:32 AM CDT) [facility] Phosphorus, pl 2.2(L) 2.3 - 4.5 mg/dL Blood 06/21/2024 2:32 AM CDT 06/21/2024 2:55 AM CDT Parviz Hannon MD PhD LAB BLOOD [place] [address] * Magnesium (06/21/2024 2:32 AM CDT) [facility] Magnesium 1.5 1.4 - 2.5 mg/dL Blood 06/21/2024 2:32 AM CDT 06/21/2024 2:55 AM CDT Parviz Hannon MD PhD LAB BLOOD ORDERABLES Final Result Performing Organization Address [facility]/[place] [address] * (ABNORMAL) POCT glucose (06/20/2024 9:16 PM CDT) [facility] Glucose, POC 371(H) 70 - 199 mg/dL Blood 06/20/2024 9:16 PM CDT 06/20/2024 9:16 PM CDT us Marcela Silva MD LAB POCT ORDERABLES - DEVIC E Final Result Performing Organization Address [facility]/[place] [address] * (ABNORMAL) POCT glucose (06/20/2024 9:09 PM CDT) Glucose, POC 393(H) 70 - 199 mg/dL Blood 06/20/2024 9:09 PM CDT 06/20/2024 9:09 PM CDT us Marcela Silva MD LAB POCT ORDERABLES - DEVIC E Final Result Performing Organization Address [facility] Co de Phone Number [facility] [place] [address] * (ABNORMAL) POCT glucose (06/20/2024 5:12 PM CDT) Glucose, POC 405(H) 70 - 199 mg/dL Blood 06/20/2024 5:12 PM CDT 06/20/2024 5:12 PM CDT us Marcela Silva MD LAB POCT ORDERABLES - DEVIC E Final Result Performing Organization Address [facility] Co de Phone Number [facility] [place] [address] * POCT glucose (06/20/2024 1:01 PM CDT) Glucose, POC 159 70 - 199 mg/dL Blood 06/20/2024 1:01 PM CDT 06/20/2024 1:01 PM CDT us Marcela Silva MD LAB POCT ORDERABLES - DEVIC E Final Result Performing Organization Address [facility] Co de Phone Number [facility] [place] [address] * (ABNORMAL) POCT glucose (06/20/2024 7:36 AM CDT) Glucose, POC 280(H) 70 - 199 mg/dL Blood 06/20/2024 7:36 AM CDT 06/20/2024 7:36 AM CDT us Marcela Silva MD LAB POCT ORDERABLES - DEVIC E Final Result Performing Organization Address [facility] de Phone Number [facility] [place] [address] * eGFR (06/20/2024 3:59 AM CDT) eGFR [...] Final Result Performing Organization Address [facility] Co de Phone Number CERNER [facility] [place] [address] * (ABNORMAL) Phosphorus (06/20/2024 3:59 AM CDT) [facility] Phosphorus, pl 1.7(L) 2.3 - 4.5 mg/dL Blood 06/20/2024 3:59 AM CDT 06/20/2024 4:06 AM CDT Narrative [facility] - 06/20/2024 4:37 AM CDT redraw us Marcela Silva MD LAB BLOOD ORDERABLES Final Result [facility] [place] [address] * Magnesium (06/20/2024 3:59 AM CDT) [facility] Magnesium 1.5 1.4 - 2.5 mg/dL Blood 06/20/2024 3:59 AM CDT 06/20/2024 4:06 AM CDT Narrative [facility] 06/20/2024 4:37 AM CDT redraw us Marcela Silva MD LAB BLOOD ORDERABLES Final Result [facility] Department [place] [address] * (ABNORMAL) Comprehensive metabolic panel (06/20/2024 3:59 AM CDT) [facility] Sodium 141 135 - 145 mmol/L Potassium, pl 3.3 3.3 - 4.9 mmol/L [facility] Chloride 102 97 - 110 mmol/L [facility] CO2 34(H) 22 - 32 mmol/L [facility] Anion gap 5 2 - 15 mmol/L [facility] BUN 19 6 - 25 mg/dL [facility] Creatinine 0.60(L) 0.80 - 1.30 mg/dL [facility] Glucose 271(H) 70 - 199 mg/dL [facility] Comment: Interpretive Data Fasting glucose >/= 126 [...] 2022. Calcium 8.4(L) 8.5 - 10.3 mg/dL [facility] Bilirubin, total 0.2 0.1 - 1.2 mg/dL [facility] Protein, pl 7.2 6.5 - 8.5 g/dL [facility] Albumin 3.1(L) 3.5 - 5.0 g/dL [facility] Alk phos 212(H) 40 - 130 Units/L [facility] ALT 38 7 - 55 Units/L [facility] AST 48 10 - 50 Units/L [facility] Blood 06/20/2024 3:59 AM CDT 06/20/2024 4:06 AM CDT Narrative [facility] - 06/20/2024 4:37 AM CDT redraw Marcela Silva MD LAB BLOOD ORDERABLES Final Result [facility] Department [place] [address] * eGFR (06/20/2024 3:02 AM CDT) [facility] eGFR >90 >=60 mL/min/1. 73 m2 [...] MD PhD LAB BLOOD ORDERABLES Final Result [facility] Department [place] [address] * (ABNORMAL) Manual Differential (06/20/2024 3:02 AM CDT) Differential Manual Cells Counted 115 [facility] Neutrophil abs 15.0(H) 1.5 - 6.5 K/cumm [facility] Imm gran abs 0.0 0.0 - 0.1 K/cumm [facility] Lymphocyte abs 1.6 0.8 - 3.3 K/cumm [facility] Monocyte abs 0.6 0.2 - 0.8 K/cumm [facility] Neutrophil pct 86.9 % [facility] Comment: Interpretive Data Percent cell count reference ranges are not reported, since discordance with absolute values may lead to misinterpretation of CBC data. Current Interpretive Data was last revised on 2018. Lymphocyte pct 9.6 % [facility] Comment: Interpretive Data Percent cell count reference ranges are not reported, since discordance with absolute values may lead to misinterpretation of CBC data. Current Interpretive Data was last revised on 2018. Monocyte pct 3.5 % [facility] Comment: Interpretive Data Percent cell count reference ranges are not reported, since discordance with absolute values may lead to misinterpretation of CBC data. Current Interpretive Data was last revised on 2018. RBC morphology Normal [facility] Platelet estimate Increased( A) [facility] Blood 06/20/2024 3:02 AM CDT 06/20/2024 3:14 AM CDT us Parviz Hannon MD PhD LAB BLOOD ORDERABLES Edited Result - Final [facility] Department [place] [address] * (ABNORMAL) CBC without differential (06/20/2024 3:02 AM CDT) WBC 17.2(H) 3.8 - 9.9 K/cumm Hgb 9.0(L) 13.0 - 17.5 g/dL [facility] Hct 27.0(L) 38.9 - 50.3 % [facility] Plt 454(H) 150 - 400 K/cumm [facility] MPV 10.8 9.1 - 12.3 fL [facility] RBC 2.68(L) 4.30 - 5.80 M/cumm [facility] MCV 100.7(H) 81.3 - 96.4 fL [facility] MCH 33.6(H) 27.1 - 33.3 pg [facility] MCHC 33.3 32.3 - 35.7 g/dL [facility] RDW CV 15.6(H) 11.1 - 14.9 % [facility] RDW SD 58.3(H) 35.7 - 48.1 fL [facility] NRBC abs 0.07(H) 0.00 - 0.01 K/cumm [facility] Blood 06/20/2024 3:02 AM CDT 06/20/2024 3:14 AM CDT Parviz Hannon MD PhD LAB BLOOD ORDERABLES Final Result [facility] Department [place] [address] * (ABNORMAL) Basic metabolic panel (06/20/2024 3:02 AM CDT) [facility] Sodium 141 135 - 145 mmol/L Potassium, pl 4.1 3.3 - 4.9 mmol/L [facility] Comment:Hemolyzed; Potassium value may be falsely elevated by as much as 1.1-1.6 mmol/L. Suggest redraw and reanalysis. Chloride 102 97 - 110 mmol/L [facility] CO2 34(H) 22 - 32 mmol/L [facility] Anion gap 5 2 - 15 mmol/L [facility] BUN 19 6 - 25 mg/dL [facility] Creatinine 0.56(L) 0.80 - 1.30 mg/dL [facility] Glucose 267(H) 70 - 199 mg/dL [facility] Comment: Interpretive Data Fasting glucose >/= 126 [...] 2022. Calcium 8.3(L) 8.5 - 10.3 mg/dL [facility] Blood 06/20/2024 3:02 AM CDT 06/20/2024 3:14 AM CDT Narrative [facility] - 06/20/2024 3:43 AM CDT Daily except Saturday and . Morning draw. Parviz Hannon MD PhD LAB BLOOD ORDERABLES Final Result Performing Organization Address [facility] Co de Phone Number [facility] [place] [address] * (ABNORMAL) Phosphorus (06/20/2024 3:02 AM CDT) Phosphorus, pl 1.7(L) 2.3 - 4.5 mg/dL Blood 06/20/2024 3:02 AM CDT 06/20/2024 3:14 AM CDT Parviz Hannon MD PhD LAB BLOOD ORDERABLES Final Result Performing Organization Address [facility] de Phone Number [facility] [place] [address] * Magnesium (06/20/2024 3:02 AM CDT) Magnesium 1.5 1.4 - 2.5 mg/dL Blood 06/20/2024 3:02 AM CDT 06/20/2024 3:14 AM CDT Parviz Hannon MD PhD LAB BLOOD ORDERABLES Final Result Performing Organization Address [facility] de Phone Number [facility] [place] [address] * (ABNORMAL) Infection Prevention VRE Culture Stool (06/19/2024 10:00 PM CDT) Report Final Report: Enterococcus species, vancomycin resistant (.) Organism ENTEROCOCCUS SPECIES, VANCOMYCIN RESISTANT [facility] Stool 06/19/2024 10:0 0 PM CDT 06/20/2024 5:06 AM CDT Narrative [facility] - 06/21/2024 10:32 AM CDT Surveillance culture for Infection Prevention purposes only; results indicate colonization, not infection requiring treatment. Testing performed by [facility] ([phone]). us Marcela Silva MD LAB MICROBIOLOGY - GENERAL ORDERABLES Final Result Performing Organization Address [facility] Co de Phone Number [facility] Department [place] [address] * C. difficile testing Stool (06/19/2024 10:00 PM CDT) [facility] Result Negative Negative Toxin Result Negative Negative [facility] C. diff result Negative, free toxin Negative, free toxin [facility] C. diff interp Negative for toxigenic Clostridioides (Clostridium) difficile. Analysis was performed using a glutamate dehydrogenase antigen detection assay combined with a C. difficile toxin detection assay. [facility] Stool 06/19/2024 10:0 0 PM CDT 06/20/2024 12:43 AM CDT us Marcela Silva MD LAB MICROBIOLOGY - GENERAL ORDERABLES Final Result Performing Organization Address [facility] de Phone Number [facility] [place] [address] * (ABNORMAL) POCT glucose (06/19/2024 8:27 PM CDT) [facility] Glucose, POC 263(H) 70 - 199 mg/dL Blood 06/19/2024 8:27 PM CDT 06/19/2024 8:27 PM CDT Parviz Hannon MD PhD LAB POCT ORDERABLES - DEVICE Final Result Performing Organization Address [facility] [place] [address] * (ABNORMAL) POCT glucose (06/19/2024 5:41 PM CDT) [facility] Glucose, POC 268(H) 70 - 199 mg/dL Blood 06/19/2024 5:41 PM CDT 06/19/2024 5:41 PM CDT Parviz Hannon MD PhD LAB POCT ORDERABLES - DEVICE Final Result Performing Organization Address [facility] de Phone Number [facility] [place] [address] * POCT glucose (06/19/2024 12:20 PM CDT) Pathologist [facility] Glucose, POC 126 70 - 199 mg/dL Blood 06/19/2024 12:2 0 PM CDT 06/19/2024 12:20 PM CDT Parviz Hannon MD PhD LAB POCT ORDERABLES - DEVICE Final Result Performing Organization Address [facility] [place] [address] * Histoplasma Antigen Urine (06/19/2024 10:04 AM CDT) [facility] Histo Ag Ur result None Detected None Detected Histo Ag Ur interp Negative Negative [facility] Comment: Result Interpretation: Reference interval: None Detected Results reported as ng/mL in 0.20 - 20.00 ng/mL range Results above 20.00 ng/mL are reported as 'Positive, Above the Limit of Quantification' Testing Performed by: [employer], [address] [place] [address] [place] [id number]. This test was developed and its performance characteristics determined by [employer]. It has not been cleared or approved [...] GENERAL ORDERABLES Final Result Performing Organization Address [facility] Co de Phone Number [facility] [place] [address] * (ABNORMAL) POCT glucose (06/19/2024 8:18 AM CDT) Glucose, POC 252(H) 70 - 199 mg/dL Blood 06/19/2024 8:18 AM CDT 06/19/2024 8:18 AM CDT us Parviz Hannon MD PhD LAB POCT ORDERABLES - DEVICE Final Result Performing Organization Address [facility] de Phone Number [facility] [place] [address] * eGFR (06/19/2024 4:41 AM CDT) eGFR [...] Grace MD LAB BLOOD ORDERABLES Final Result [facility] Department [place] [address] * (ABNORMAL) Manual Differential (06/19/2024 4:41 AM CDT) Differential Manual Cells Counted 115 [facility] Neutrophil abs 22.7(H) 1.5 - 6.5 K/cumm [facility] Imm gran abs 0.0 0.0 - 0.1 K/cumm [facility] Lymphocyte abs 0.8 0.8 - 3.3 K/cumm [facility] Monocyte abs 0.2 0.2 - 0.8 K/cumm [facility] Neutrophil pct 95.6 % [facility] Comment: Interpretive Data Percent cell count reference ranges are not reported, since discordance with absolute values may lead to misinterpretation of CBC data. Current Interpretive Data was last revised on 2018. Lymphocyte pct 3.5 % [facility] Comment: Interpretive Data Percent cell count reference ranges are not reported, since discordance with absolute values may lead to misinterpretation of CBC data. Current Interpretive Data was last revised on 2018. Monocyte pct 0.9 % [facility] Comment: Interpretive Data Percent cell count reference ranges are not reported, since discordance with absolute values may lead to misinterpretation of CBC data. Current Interpretive Data was last revised on 2018. RBC morphology Present(A) [facility] Anisocytosis Moderate(A) [facility] Macrocytes 8-15/HPF(A) [facility] Platelet estimate Adequate [facility] Blood 06/19/2024 4:41 AM CDT 06/19/2024 5:02 AM CDT Anthony Grace MD LAB BLOOD ORDERABLES Edited Result - Final Performing Organization Address [facility]/ZIP Co de Phone Number [facility] Department [place] [address] * (ABNORMAL) CBC without differential (06/19/2024 4:41 AM CDT) WBC 23.7(H) 3.8 - 9.9 K/cumm Hgb 9.1(L) 13.0 - 17.5 g/dL [facility] Hct 27.8(L) 38.9 - 50.3 % [facility] Plt 413(H) 150 - 400 K/cumm [facility] MPV 10.2 9.1 - 12.3 fL [facility] RBC 2.73(L) 4.30 - 5.80 M/cumm [facility] MCV 101.8(H) 81.3 - 96.4 fL [facility] MCH 33.3 27.1 - 33.3 pg [facility] MCHC 32.7 32.3 - 35.7 g/dL [facility] RDW CV 15.5(H) 11.1 - 14.9 % [facility] RDW SD 58.0(H) 35.7 - 48.1 fL [facility] NRBC abs 0.06(H) 0.00 - 0.01 K/cumm [facility] Blood 06/19/2024 4:41 AM CDT 06/19/2024 5:02 AM CDT us Anthony Grace MD LAB BLOOD ORDERABLES Final Result [facility] Department [place] [address] * (ABNORMAL) Basic metabolic panel (06/19/2024 4:41 AM CDT) Sodium 142 135 - 145 mmol/L Potassium, pl 3.9 3.3 - 4.9 mmol/L [facility] Chloride 104 97 - 110 mmol/L [facility] CO2 29 22 - 32 mmol/L [facility] Anion gap 9 2 - 15 mmol/L [facility] BUN 20 6 - 25 mg/dL [facility] Creatinine 0.82 0.80 - 1.30 mg/dL [facility] Glucose 246(H) 70 - 199 mg/dL [facility] Comment: Interpretive Data Fasting glucose >/= 126 [...] 2022. Calcium 8.8 8.5 - 10.3 mg/dL [facility] Blood 06/19/2024 4:41 AM CDT 06/19/2024 5:02 AM CDT Narrative [facility] - 06/19/2024 5:33 AM CDT Daily except Saturday and . Morning draw. Parviz Hannon MD PhD LAB BLOOD ORDERABLES Final Result Performing Organization Address City/[facility]/ZIP Co de Phone Number [facility] Department [place] [address] * Phosphorus (06/19/2024 4:41 AM CDT) [facility] Phosphorus, pl 2.4 2.3 - 4.5 mg/dL Blood 06/19/2024 4:41 AM CDT 06/19/2024 5:02 AM CDT Parviz Hannon MD PhD LAB BLOOD ORDERABLES Final Result [facility] [place] [address] * Magnesium (06/19/2024 4:41 AM CDT) Magnesium 1.7 1.4 - 2.5 mg/dL Blood 06/19/2024 4:41 AM CDT 06/19/2024 5:02 AM CDT Parviz Hannon MD PhD LAB BLOOD ORDERABLES Final Result Performing Organization Address [facility] [place] [address] * (ABNORMAL) POCT glucose (06/18/2024 8:58 PM CDT) [facility] Signature Glucose, POC 307(H) 70 - 199 mg/dL Blood 06/18/2024 8:58 PM CDT 06/18/2024 8:58 PM CDT Parviz Hannon MD PhD LAB POCT ORDERABLES - DEVICE Final Result Performing Organization Address [facility] de Phone Number [facility] [place] [address] * (ABNORMAL) POCT glucose (06/18/2024 5:57 PM CDT) Glucose, POC 240(H) 70 - 199 mg/dL Blood 06/18/2024 5:57 PM CDT 06/18/2024 5:57 PM CDT Parviz Hannon MD PhD LAB POCT ORDERABLES - DEVICE Final Result Performing Organization Address [facility] Co de Phone Number [facility] [place] [address] * (ABNORMAL) POCT glucose (06/18/2024 11:21 AM CDT) Glucose, POC 216(H) 70 - 199 mg/dL Comment:Glu2: RN/MD Notified Glucose comment 1 Glu2: RN/MD Notified [facility] Blood 06/18/2024 11:2 1 AM CDT 06/18/2024 11:21 AM CDT Parviz Hannon MD PhD LAB POCT ORDERABLES - DEVICE Final Result Performing Organization Address City/[facility]/[place] [address] * POCT glucose (06/18/2024 7:10 AM CDT) Glucose, POC 129 70 - 199 mg/dL Blood 06/18/2024 7:10 AM CDT 06/18/2024 7:10 AM CDT Parviz Hannon MD PhD LAB POCT ORDERABLES - DEVICE Final Result Performing Organization Address City/[facility] Co de Phone Number [facility] [place] [address] * POCT glucose (06/18/2024 5:09 AM CDT) Glucose, POC 125 70 - 199 mg/dL Blood 06/18/2024 5:09 AM CDT 06/18/2024 5:09 AM CDT Parviz Hannon MD PhD LAB POCT ORDERABLES - DEVICE Final Result Performing Organization Address City/[facility] Co de Phone Number [facility] [place] [address] * POCT glucose (06/18/2024 3:57 AM CDT) Glucose, POC 76 70 - 199 mg/dL Blood 06/18/2024 3:57 AM CDT 06/18/2024 3:57 AM CDT us Parviz Hannon MD PhD LAB POCT ORDERABLES - DEVICE Final Result Performing Organization Address City/State/[facility] Co ne Phone Number [facility] Department [place] [address] * eGFR (06/18/2024 3:56 AM CDT) Pathologist [facility] eGFR >90 >=60 [...] BLOOD ORDERABLES Final Result Performing Organization Address City/[facility]/ZIP Co de Phone Number ZULEMA DENT Daniela [facility] [place] [address] * (ABNORMAL) Manual Differential (06/18/2024 3:56 AM CDT) Differential Manual Cells Counted 114 [facility] Neutrophil abs 25.2(H) 1.5 - 6.5 K/cumm [facility] Imm gran abs 0.0 0.0 - 0.1 K/cumm [facility] Lymphocyte abs 1.2 0.8 - 3.3 K/cumm [facility] Monocyte abs 1.5(H) 0.2 - 0.8 K/cumm [facility] Neutrophil pct 90.3 % [facility] Comment: Interpretive Data Percent cell count reference ranges are not reported, since discordance with absolute values may lead to misinterpretation of CBC data. Current Interpretive Data was last revised on 2018. Lymphocyte pct 4.4 % [facility] Comment: Interpretive Data Percent cell count reference ranges are not reported, since discordance with absolute values may lead to misinterpretation of CBC data. Current Interpretive Data was last revised on 2018. Monocyte pct 5.3 % [facility] Comment: Interpretive Data Percent cell count reference ranges are not reported, since discordance with absolute values may lead to misinterpretation of CBC data. Current Interpretive Data was last revised on 2018. RBC morphology Present(A) [facility] Anisocytosis Marked(A) [facility] Macrocytes > 15/HPF(A) [facility] Platelet estimate Adequate [facility] Blood 06/18/2024 3:56 AM CDT 06/18/2024 4:11 AM CDT Anthony Grace MD LAB BLOOD ORDERABLES Edited Result - Final Performing Organization Address City/[facility]/ZIP Co de Phone Number ZULEMA DENT Daniela [facility] Department [place] [address] * (ABNORMAL) CBC without differential (06/18/2024 3:56 AM CDT) WBC 27.9(H) 3.8 - 9.9 K/cumm Hgb 9.3(L) 13.0 - 17.5 g/dL [facility] Hct 28.6(L) 38.9 - 50.3 % [facility] Plt 377 150 - 400 K/cumm [facility] MPV 10.1 9.1 - 12.3 fL [facility] RBC 2.79(L) 4.30 - 5.80 M/cumm [facility] MCV 102.5(H) 81.3 - 96.4 fL [facility] MCH 33.3 27.1 - 33.3 pg [facility] MCHC 32.5 32.3 - 35.7 g/dL [facility] RDW CV 15.5(H) 11.1 - 14.9 % [facility] RDW SD 58.1(H) 35.7 - 48.1 fL [facility] NRBC abs 0.04(H) 0.00 - 0.01 K/cumm [facility] Blood 06/18/2024 3:56 AM CDT 06/18/2024 4:11 AM CDT us Anthony Grace MD LAB BLOOD ORDERABLES Final Result Performing Organization Address [facility] de Phone Number [facility] Department [place] [address] * Lactate dehydrogenase (LD) (06/18/2024 3:56 AM CDT) Lactate dehydrogenase (LDH) 238 100 - 250 Units/L Blood 06/18/2024 3:56 AM CDT 06/18/2024 4:11 AM CDT Narrative [facility] - 06/18/2024 4:44 AM CDT Saturday and only. Morning draw. us Parviz Hannon MD PhD LAB BLOOD ORDERABLES Final Result [facility] Department [place] [address] * Uric acid (06/18/2024 3:56 AM CDT) [facility] Uric acid 3.2 3.0 - 8.0 mg/dL Blood 06/18/2024 3:56 AM CDT 06/18/2024 4:11 AM CDT [facility] - 06/18/2024 4:44 AM CDT Saturday and only. Morning draw. . Parviz Hannon MD PhD LAB BLOOD ORDERABLES Final Result Performing Organization Address [facility] de Phone Number [facility] [place] [address] * (ABNORMAL) Comprehensive metabolic panel (06/18/2024 3:56 AM CDT) [facility] Sodium 141 135 - 145 mmol/L Potassium, pl 3.4 3.3 - 4.9 mmol/L [facility] Chloride 104 97 - 110 mmol/L [facility] CO2 28 22 - 32 mmol/L [facility] Anion gap 9 2 - 15 mmol/L [facility] BUN 22 6 - 25 mg/dL [facility] Creatinine 0.91 0.80 - 1.30 mg/dL [facility] Glucose 70 70 - 199 mg/dL [facility] Comment: Interpretive Data Fasting glucose >/= 126 [...] 2022. Calcium 9.2 8.5 - 10.3 mg/dL [facility] Bilirubin, total 0.2 0.1 - 1.2 mg/dL [facility] Protein, pl 8.1 6.5 - 8.5 g/dL [facility] Albumin 3.4(L) 3.5 - 5.0 g/dL [facility] Alk phos 273(H) 40 - 130 Units/L [facility] ALT 29 7 - 55 Units/L [facility] AST 46 10 - 50 Units/L [facility] Blood 06/18/2024 3:56 AM CDT 06/18/2024 4:11 AM CDT Narrative [facility] - 06/18/2024 4:44 AM CDT Saturday and only. Morning draw. Parviz Hannon MD PhD LAB BLOOD ORDERABLES Final Result Performing Organization Address City/[facility]/ZIP Co de Phone Number [facility] [place] [address] * Type and screen (06/18/2024 3:56 AM CDT) Ursula, indirect Negative ABO Rh A Positive [facility] Blood 06/18/2024 3:56 AM CDT 06/18/2024 4:08 AM CDT Narrative [facility] - 06/18/2024 5:35 AM CDT Has the patient had Daratumumab or Isatuximab in the past 6 months?->Unknown Parviz Hannon MD PhD LAB BLOOD BANK TEST ORDERABLES Final Result [facility] [place] [address] * (ABNORMAL) Phosphorus (06/18/2024 3:56 AM CDT) Phosphorus, pl 2.1(L) 2.3 - 4.5 mg/dL Blood 06/18/2024 3:56 AM CDT 06/18/2024 4:11 AM CDT Parviz Hannon MD PhD LAB BLOOD ORDERABLES Final Result Performing Organization Address [facility] de Phone Number [facility] [place] [address] * Magnesium (06/18/2024 3:56 AM CDT) Magnesium 2.1 1.4 - 2.5 mg/dL Blood 06/18/2024 3:56 AM CDT 06/18/2024 4:11 AM CDT Parviz Hannon MD PhD LAB BLOOD ORDERABLES Final Result Performing Organization Address [facility] de Phone Number [facility] [place] [address] * (ABNORMAL) POCT glucose (06/18/2024 12:04 AM CDT) Glucose, POC 337(H) 70 - 199 mg/dL Blood 06/18/2024 12:0 4 AM CDT 06/18/2024 12:04 AM CDT Parviz Hannon MD PhD LAB POCT ORDERABLES - DEVICE Final Result Performing Organization Address [facility] de Phone Number [facility] [place] [address] * (ABNORMAL) POCT glucose (06/17/2024 11:15 PM CDT) Glucose, POC 335(H) 70 - 199 mg/dL Comment:Glu2: RN/MD Notified Glucose comment 1 Glu2: RN/MD Notified [facility] Blood 06/17/2024 11:1 5 PM CDT 06/17/2024 11:15 PM CDT us Parviz Hannon MD PhD LAB POCT ORDERABLES - DEVICE Final Result Performing Organization Address [facility] Co de Phone Number [facility] [place] [address] * (ABNORMAL) Vancomycin level trough Draw trough 30 minutes prior to 4th dose. (06/17/2024 11:15 PM CDT) Pathologist [facility] Vancomycin trough 21.2(H) 10.0 - 20.0 mcg/mL Blood 06/17/2024 11:1 5 PM CDT 06/17/2024 11:33 PM CDT Narrative [facility] - 06/18/2024 12:03 AM CDT Draw trough 30 minutes prior to 4th dose. us Lluvia Arguello [employer] LAB BLOOD ORDERABLES Final R esult Performing Organization Address [facility] Co de Phone Number [facility] [place] [address] * (ABNORMAL) POCT glucose (06/17/2024 10:06 PM CDT) Pathologist [facility] Glucose, POC 475(C) 70 - 199 mg/dL Comment:Glu2: RN/MD Notified Glucose comment 1 Glu2: RN/MD Notified [facility] Blood 06/17/2024 10:0 6 PM CDT 06/17/2024 10:06 PM CDT us Parviz Hannon MD PhD LAB POCT ORDERABLES - DEVICE Final Result Performing Organization Address [facility] Co de Phone Number [facility] [place] [address] * Critical Result Callback Chemistry (06/17/2024 9:20 PM CDT) Date Notified [id number] Time Notified 2207 [facility] TestName Glucose [facility] Called/Read Back Yuriy [facility] Credentials RN ZULEMA [facility] Called By mesha [facility] Blood 06/17/2024 9:20 PM CDT 06/17/2024 9:32 PM CDT us Kurt Stephenson [employer] LAB BLOOD ORDERABLES Final R esult [facility] Department [place] [address] * eGFR (06/17/2024 9:20 PM CDT) eGFR [...] 06/17/2024 9:32 PM CDT us Kurt Stephenson [employer] LAB BLOOD ORDERABLES Final R esult [facility] Department [place] [address] * (ABNORMAL) Basic metabolic panel (06/17/2024 9:20 PM CDT) [facility] Sodium 139 135 - 145 mmol/L Potassium, pl 3.4 3.3 - 4.9 mmol/L [facility] Chloride 102 97 - 110 mmol/L [facility] CO2 26 22 - 32 mmol/L [facility] Anion gap 11 2 - 15 mmol/L [facility] BUN 20 6 - 25 mg/dL [facility] Creatinine 0.91 0.80 - 1.30 mg/dL [facility] Glucose 462(C) 70 - 199 mg/dL [facility] Comment: reviewed Interpretive Data Fasting glucose >/= [...] 2022. Calcium 8.7 8.5 - 10.3 mg/dL [facility] Blood 06/17/2024 9:20 PM CDT 06/17/2024 9:32 PM CDT us Kurt Stephenson [employer] LAB BLOOD ORDERABLES Final R esult [facility] Department [place] [address] * (ABNORMAL) POCT glucose (06/17/2024 8:51 PM CDT) Glucose, POC 519(C) 70 - 199 mg/dL Comment:Glu2: Glucose comment 1 Glu2: [facility] Blood 06/17/2024 8:51 PM CDT 06/17/2024 8:51 PM CDT Parviz Hannon MD PhD LAB POCT ORDERABLES - DEVICE Final Result Performing Organization Address [facility] Co de Phone Number [facility] [place] [address] * (ABNORMAL) POCT glucose (06/17/2024 8:49 PM CDT) Glucose, POC 456(C) 70 - 199 mg/dL Comment:Glu2: RN/MD Notified Glucose comment 1 Glu2: RN/MD Notified [facility] Blood 06/17/2024 8:49 PM CDT 06/17/2024 8:49 PM CDT Parviz Hannon MD PhD LAB POCT ORDERABLES - DEVICE Final Result Performing Organization Address [facility] de Phone Number [facility] [place] [address] * (ABNORMAL) POCT glucose (06/17/2024 4:00 PM CDT) Glucose, POC 294(H) 70 - 199 mg/dL Comment:Glu2: RN/MD Notified Glucose comment 1 Glu2: RN/MD Notified [facility] Blood 06/17/2024 4:00 PM CDT 06/17/2024 4:00 PM CDT Parviz Hannon MD PhD LAB POCT ORDERABLES - DEVICE Final Result Performing Organization Address City/[facility] Co de Phone Number [facility] [place] [address] * POCT glucose (06/17/2024 11:33 AM CDT) Glucose, POC 133 70 - 199 mg/dL [facility] Blood 06/17/2024 11:3 3 AM CDT 06/17/2024 11:33 AM CDT Parviz Hannon MD PhD LAB POCT ORDERABLES - DEVICE Final Result Performing Organization Address [facility] de Phone Number [facility] Department [place] [address] * Tacrolimus level trough (06/17/2024 8:30 AM CDT) Pathologist [facility] Tacrolimus trough <1.0 ng/mL Comment: Undetectable. ??Please verify that the correct immunosuppressant test was requested. Interpretive Data Testing performed by liquid chromatography-tandem mass spectrometry. ??Therapeutic concentrations vary depending on type of transplanted organ and time elapsed since transplant. ??Typical trough concentrations range from 5-15 ng/mL. ??This test was developed and its performance characteristics determined by the [facility] consistent with CLIA requirements. ??This test has not been cleared or approved by the [place] Food and Drug administration. ??Current interpretive data last reviewed 2020. Blood 06/17/2024 8:30 AM CDT 06/17/2024 8:55 AM CDT us Kirt Hernandez MD PhD LAB BLOOD ORD ERABLES Final Result Performing Organization Address [facility] de Phone Number [facility] [place] [address] * (ABNORMAL) POCT glucose (06/17/2024 7:10 AM CDT) Glucose, POC 206(H) 70 - 199 mg/dL Comment:Glu2: RN/ Notified Glucose comment 1 Glu2: RN/ Notified [facility] Blood 06/17/2024 7:10 AM CDT 06/17/2024 7:10 AM CDT us Parviz Hannon MD PhD LAB POCT ORDERABLES - DEVICE Final Result Performing Organization Address [facility] de Phone Number ZULEMA DENT Daniela [facility] Department [place] [address] * eGFR (06/17/2024 4:05 AM CDT) eGFR [...] Final Result Performing Organization Address [facility] Co de Phone Number ZULEMA DENT Daniela [facility] Department [place] [address] * (ABNORMAL) Manual Differential (06/17/2024 4:05 AM CDT) Pathologist [facility] Differential Manual Cells Counted 116 [facility] Neutrophil abs 26.8(H) 1.5 - 6.5 K/cumm [facility] Imm gran abs 0.2(H) 0.0 - 0.1 K/cumm [facility] Lymphocyte abs 0.0(L) 0.8 - 3.3 K/cumm [facility] Monocyte abs 0.2 0.2 - 0.8 K/cumm [facility] Neutrophil pct 98.2 % [facility] Comment: Interpretive Data Percent cell count reference ranges are not reported, since discordance with absolute values may lead to misinterpretation of CBC data. Current Interpretive Data was last revised on 2018. Monocyte pct 0.9 % [facility] Comment: Interpretive Data Percent cell count reference ranges are not reported, since discordance with absolute values may lead to misinterpretation of CBC data. Current Interpretive Data was last revised on 2018. Promyelocyte pct 0.9 % [facility] RBC morphology Present(A) [facility] Anisocytosis Marked(A) [facility] Macrocytes > 15/HPF(A) [facility] Platelet estimate Adequate [facility] Blood 06/17/2024 4:05 AM CDT 06/17/2024 4:26 AM CDT us Anthony Grace MD LAB BLOOD ORDERABLES Edited Result - Final ZULEMA DENT [facility] Department [place] [address] * (ABNORMAL) CBC without differential (06/17/2024 4:05 AM CDT) Pathologist [facility] WBC 27.3(H) 3.8 - 9.9 K/cumm Hgb 9.4(L) 13.0 - 17.5 g/dL [facility] Hct 29.2(L) 38.9 - 50.3 % [facility] Plt 409(H) 150 - 400 K/cumm [facility] MPV 10.2 9.1 - 12.3 fL [facility] RBC 2.84(L) 4.30 - 5.80 M/cumm [facility] MCV 102.8(H) 81.3 - 96.4 fL [facility] MCH 33.1 27.1 - 33.3 pg [facility] MCHC 32.2(L) 32.3 - 35.7 g/dL [facility] RDW CV 14.9 11.1 - 14.9 % [facility] RDW SD 56.4(H) 35.7 - 48.1 fL [facility] NRBC abs 0.00 0.00 - 0.01 K/cumm [facility] Blood 06/17/2024 4:05 AM CDT 06/17/2024 4:26 AM CDT Anthony Grace MD LAB BLOOD ORDERABLES Final Result [facility] Department [place] [address] * (ABNORMAL) Basic metabolic panel (06/17/2024 4:05 AM CDT) Sodium 138 135 - 145 mmol/L Potassium, pl 4.6 3.3 - 4.9 mmol/L [facility] Comment:Hemolyzed; Potassium value may be falsely elevated by as much as 0.6-1.0 mmol/L. Suggest redraw and reanalysis. Chloride 101 97 - 110 mmol/L [facility] CO2 28 22 - 32 mmol/L [facility] Anion gap 9 2 - 15 mmol/L [facility] BUN 17 6 - 25 mg/dL [facility] Creatinine 0.88 0.80 - 1.30 mg/dL [facility] Glucose 202(H) 70 - 199 mg/dL [facility] Comment: Interpretive Data Fasting glucose >/= 126 [...] 2022. Calcium 8.5 8.5 - 10.3 mg/dL [facility] Blood 06/17/2024 4:05 AM CDT 06/17/2024 4:25 AM CDT Narrative [facility] - 06/17/2024 4:51 AM CDT Daily except Saturday and . Morning draw. Parviz Hannon MD PhD LAB BLOOD ORDERABLES Final Result Performing Organization Address City/[facility]/ZIP Co de Phone Number [facility] Department [place] [address] * Phosphorus (06/17/2024 4:05 AM CDT) Phosphorus, pl 2.5 2.3 - 4.5 mg/dL Blood 06/17/2024 4:05 AM CDT 06/17/2024 4:25 AM CDT Parviz Hannon MD PhD LAB BLOOD ORDERABLES Final Result [facility] Department [place] [address] * Magnesium (06/17/2024 4:05 AM CDT) Magnesium 2.2 1.4 - 2.5 mg/dL Blood 06/17/2024 4:05 AM CDT 06/17/2024 4:25 AM CDT Parviz Hannon MD PhD LAB BLOOD ORDERABLES Final Result Performing Organization Address [facility] [place] [address] * (ABNORMAL) POCT glucose (06/17/2024 3:36 AM CDT) Glucose, POC 222(H) 70 - 199 mg/dL Blood 06/17/2024 3:36 AM CDT 06/17/2024 3:36 AM CDT Parviz Hannon MD PhD LAB POCT ORDERABLES - DEVICE Final Result Performing Organization Address [facility] [place] [address] * (ABNORMAL) POCT glucose (06/16/2024 11:23 PM CDT) Glucose, POC 224(H) 70 - 199 mg/dL Blood 06/16/2024 11:2 3 PM CDT 06/16/2024 11:23 PM CDT us Parviz Hannon MD PhD LAB POCT ORDERABLES - DEVICE Final Result Performing Organization Address [facility] Co de Phone Number [facility] [place] [address] * POCT glucose (06/16/2024 7:17 PM CDT) Glucose, POC 174 70 - 199 mg/dL Blood 06/16/2024 7:17 PM CDT 06/16/2024 7:17 PM CDT us Parviz Hannon MD PhD LAB POCT ORDERABLES - DEVICE Final Result Performing Organization Address [facility] Co de Phone Number [facility] [place] [address] * POCT glucose (06/16/2024 5:46 PM CDT) Glucose, POC 157 70 - 199 mg/dL Blood 06/16/2024 5:46 PM CDT 06/16/2024 5:46 PM CDT Parviz Hannon MD PhD LAB POCT ORDERABLES - DEVICE Final Result ZULEMA DENT [facility] Department [place] [address] * eGFR (06/16/2024 4:43 PM CDT) eGFR [...] CDT 06/16/2024 5:01 PM CDT Fadia Red DEMONSTRATOR KNITTING LAB BLOOD ORDERABLES Final Result Performing Organization Address City/[facility]/ZIP Co de Phone Number [facility] Department [place] [address] * Basic metabolic panel (06/16/2024 4:43 PM CDT) Pathologist [facility] Sodium 137 135 - 145 mmol/L Comment:Repeated and Verifie d Potassium, pl 4.9 3.3 - 4.9 mmol/L [facility] Chloride 101 97 - 110 mmol/L [facility] Comment:Repeated and Verifie d CO2 29 22 - 32 mmol/L [facility] Anion gap 7 2 - 15 mmol/L [facility] Comment:Repeated and Verifie d BUN 14 6 - 25 mg/dL [facility] Creatinine 0.97 0.80 - 1.30 mg/dL [facility] Glucose 143 70 - 199 mg/dL [facility] Comment: Interpretive Data Fasting glucose >/= 126 [...] 2022. Calcium 8.9 8.5 - 10.3 mg/dL [facility] Blood 06/16/2024 4:43 PM CDT 06/16/2024 5:01 PM CDT Fadia Red DEMONSTRATOR KNITTING LAB BLOOD ORDERABLES Final Result Performing Organization Address [facility]/ZIP Co de Phone Number [facility] Department [place] [address] * POCT glucose (06/16/2024 4:42 PM CDT) Glucose, POC 156 70 - 199 mg/dL Blood 06/16/2024 4:42 PM CDT 06/16/2024 4:42 PM CDT Parviz Hannon MD PhD LAB POCT ORDERABLES - DEVICE Final Result Performing Organization Address [facility] de Phone Number [facility] Department [place] [address] * (ABNORMAL) Fentanyl Confirmation, Urine (06/16/2024 4:03 PM CDT) Pathologist [facility] Fentanyl Conf, Ur Confirmed Positive(A) Cutoff 0.3ng/mL [...] needed. Performance characteristics were determined by the [facility] in a manner consistent with CLIA requirement and has not been cleared or approved by the U.S. Food and Drug Administration. Current interpretive data was last revised 2021. Urine 06/16/2024 4:03 PM CDT 06/16/2024 5:29 PM CDT us Fadia Red DEMONSTRATOR KNITTING LAB URINE ORDERABLES Final Result Performing Organization Address [facility]/ZIP Co de Phone Number [facility] Department [place] [address] * (ABNORMAL) Drugs of Abuse Screen, Urine with Reflex Confirmation (06/16/2024 4:03 PM CDT) Pathologist [facility] Amphetamine, ur Not Detected CutOff 500ng/mL Comment: Interpretive Data - Amphetamines: ??Samples containing greater than 500 ng/mL d-methamphetamine ??or other cross-reacting amphetamine compounds are reported as positive. ??Amphetamine immunoassays are subject to significant false positive rates due to cross-reactivity of non-amphetamine drugs. Confirmatory testing required for definitive results. Current Interpretive Data was last reviewed 2023. Barbiturates, ur Not Detected CutOff 200ng/mL [facility] Comment: Interpretive Data - Barbiturates: ??Samples containing greater than 200 ng/mL secobarbital or other cross-reacting barbiturate compounds are reported as positive. ??False positive and false negative results are possible. Confirmatory testing required for definitive results. Current Interpretive Data was last reviewed 2023. Benzodiazepines, ur Screen Positive, presumptive (A) CutOff 100ng/mL [facility] Comment: Interpretive Data - Benzodiazepines: ??Samples containing [...] Methadone, ur Not Detected CutOff 300ng/mL [facility] Comment: Interpretive Data - Methadone: ??Samples containing greater than 300 ng/mL d,l-methadone or other cross-reacting compounds are reported as positive. ??False positive and false negative results are possible. Confirmatory testing required for definitive results. Current Interpretive Data was last reviewed 2023. Opiates, ur Not Detected CutOff 300ng/mL [facility] Comment: Interpretive Data - Opiates: ??Samples containing greater than 300 ng/mL morphine or other cross-reacting compounds are reported as positive. ??False positive and false negative results are possible. Confirmatory testing required for definitive results. Current Interpretive Data was last reviewed 2023. Oxycodone, ur Not Detected CutOff 100ng/mL [facility] Comment: Interpretive Data - Oxycodone: ??Samples containing greater than 100 ng/mL oxycodone or other cross-reacting compounds are reported as ??positive. ??False positive and false negative results are possible. Confirmatory testing required for definitive results. Current Interpretive Data was last reviewed 2023. Phencyclidine, ur Not Detected CutOff 25 ng/mL [facility] Comment: Interpretive Data - Phencyclidine: ??Samples containing greater than 25 ng/mL phencyclidine or other cross-reacting compounds are reported as positive. ??False positive and false negative results are possible. Confirmatory testing required for definitive results. Current Interpretive Data was last reviewed 2023. Urine Creatinine 66 mg/dL [facility] Comment: Interpretive Data Urine Creatinine: < 10 mg/dL is extremely dilute = or > 10 but < 20 mg/dL is dilute = or > 20 mg/dL is normal Current Interpretive Data was last revised on 2018. Urine 06/16/2024 4:03 PM CDT 06/16/2024 5:29 PM CDT Narrative [facility] - 06/16/2024 6:02 PM CDT Drug of Abuse screening is performed by immunoassay for medical purposes only. ??This is not to be used for Pain Management purposes. ??If Detected, confirmation testing will be performed for Amphetamines, Cocaine, Fentanyl, Methadone, Opiates, Oxycodone or Phencyclidine. Fadia Red NP LAB URINE ORDERABLES Final Result Performing Organization Address [facility] Co de Phone Number [facility] Department [place] [address] * Urinalysis reflex to microscopic and culture Urine (06/16/2024 4:03 PM CDT) Color, ur Straw Yellow Clarity, ur Clear Clear [facility] Specific gravity, ur 1.019 1.003 - 1.030 [facility] pH, urine 6.0 [facility] Comment: Interpretive Data ? Urine pH is affected by diet, medications, systemic acid-base disturbances, and renal tubular function. ??pH may affect urinary stone formation. ??For example, urine pH below 6.0 may help reduce the tendency for calcium phosphate stones and pH greater than 6.0 may reduce the tendency for uric acid stone formation. Source: [facility] Current Interpretive Data was last revised on 2017 Protein, ur ql Negative Negative [facility] Glucose, ur ql Negative Negative [facility] Ketones, ur Negative Negative [facility] Bilirubin, ur Negative Negative [facility] Blood, ur Negative Negative [facility] Urobilinogen, ur <2.0 <2.0 mg/dL [facility] Nitrite, ur Negative Negative [facility] Leukocyte esterase, ur Negative Negative [facility] UA reflex comment Reflex conditions for microscopic UA and culture not met. [facility] Urine 06/16/2024 4:03 PM CDT 06/16/2024 5:19 PM CDT us Fadia Red NP LAB MICROBIOLOGY - GENERAL ORDERABLES Final Result Performing Organization Address [facility]/ZIP Co de Phone Number [facility] Department [place] [address] * (ABNORMAL) CBC without differential (06/16/2024 3:06 PM CDT) WBC 15.8(H) 3.8 - 9.9 K/cumm Hgb 8.6(L) 13.0 - 17.5 g/dL [facility] Hct 26.9(L) 38.9 - 50.3 % [facility] Plt 324 150 - 400 K/cumm [facility] MPV 10.7 9.1 - 12.3 fL [facility] RBC 2.56(L) 4.30 - 5.80 M/cumm [facility] MCV 105.1(H) 81.3 - 96.4 fL [facility] MCH 33.6(H) 27.1 - 33.3 pg [facility] MCHC 32.0(L) 32.3 - 35.7 g/dL [facility] RDW CV 14.9 11.1 - 14.9 % [facility] RDW SD 57.6(H) 35.7 - 48.1 fL [facility] NRBC abs 0.00 0.00 - 0.01 K/cumm [facility] Blood 06/16/2024 3:06 PM CDT 06/16/2024 3:31 PM CDT Rukhsana Nunez NP LAB BLOOD ORDERABLES F inal Result [facility] Department [place] [address] * Critical Result Callback Chemistry (06/16/2024 3:05 PM CDT) Date Notified [id number] Time Notified 1635 [facility] TestName Sodium, Glucose [facility]MA [facility] Called/Read Back Lupis Beam [facility] Credentials RN [facility]MA [facility] Called By KG [facility] Blood 06/16/2024 3:05 PM CDT 06/16/2024 3:31 PM CDT us Rukhsana Nunez NP LAB BLOOD ORDERABLES F inal Result ZULEMA BJMaddie [facility] Department [place] [address] * eGFR (06/16/2024 3:05 PM CDT) eGFR [...] dited Result - Final Performing Organization Address City/[facility]/ZIP Co de Phone Number ZULEMA DENT Daniela [facility] Department [place] [address] * Blood culture Blood (06/16/2024 3:05 PM [...] organism identification may be performed using the Teracentigene Gram-Positive Blood Culture Assay. This assay detects microbial DNA in positive blood culture broth via hybridization of target DNA to capture oligonucleotides on a microarray. This assay has been cleared by the [place] Food and Drug Administration and its performance characteristics have been verified by the [facility] Microbiology Laboratory. 5. ?For questions about this culture, contact the Microbiology Laboratory at [phone]. Interpretive data was last revised on 2020. Rukhsana Nunez NP LAB MICROBIOLOGY - GEN ERAL ORDERABLES Final Result Performing Organization Address City/[facility]/ZIP Co de Phone Number ZULEMA DENT Daniela [facility] Department [place] [address] * Blood culture Blood (06/16/2024 3:05 PM [...] organism identification may be performed using the Teracentigene Gram-Positive Blood Culture Assay. This assay detects microbial DNA in positive blood culture broth via hybridization of target DNA to capture oligonucleotides on a microarray. This assay has been cleared by the [place] Food and Drug Administration and its performance characteristics have been verified by the [facility] Microbiology Laboratory. 5. ?For questions about this culture, contact the Microbiology Laboratory at [phone]. Interpretive data was last revised on 2020. Rukhsana Nunez NP LAB MICROBIOLOGY - GEN ERAL ORDERABLES Final Result ZULEMA DENT [facility] Department [place] [address] * Troponin I high-sensitivity (06/16/2024 3:05 PM CDT) Trop I hs <4 <=35 ng/L Comment: Interpretive Data For further hscTnI resources including the diagnostic algorithm and an aid in interpretation, copy and paste this link: [email or web address].testcatalog.org/show/[email or web address] Current Interpretive Data last revised 2020. Blood 06/16/2024 3:05 PM CDT 06/16/2024 3:32 PM CDT us Rukhsana Nunez DEMONSTRATOR KNITTING LAB BLOOD ORDERABLES F inal Result [facility]MA [facility] Department [place] [address] * Pro B-type natriuretic peptide (06/16/2024 3:05 [...] dited Result - Final Performing Organization Address City/State/[facility] Co de Phone Number [facility] Department [place] [address] * Comprehensive metabolic panel (06/16/2024 3:05 PM [...] pl See Comment 3.3 - 4.9 mmol/L [facility] Comment: Sample investigated and found to be [...] Chloride See Comment 97 - 110 mmol/L [facility] Comment: Repeated and Verified Sample investigated and [...] CO2 See Comment 22 - 32 mmol/L [facility] Comment: Sample investigated and found to be [...] gap See Comment 2 - 15 mmol/L [facility] Comment: Sample investigated and found to be [...] BUN See Comment 6 - 25 mg/dL [facility] Comment: Sample investigated and found to [...] See Comment 0.80 - 1.30 mg/dL [facility] Comment: Sample investigated and found to be [...] See Comment 70 - 199 mg/dL [facility] Comment: Telephone report made to: Lupis CARLOS) [...] Calcium See Comment 8.5 - 10.3 mg/dL [facility] Comment: Sample investigated and found to be [...] total See Comment 0.1 - 1.2 mg/dL [facility] Comment: Sample investigated and found to be [...] pl See Comment 6.5 - 8.5 g/dL [facility] Comment: Sample investigated and found to be [...] Albumin See Comment 3.5 - 5.0 g/dL [facility] Comment: Sample investigated and found to be [...] See Comment 40 - 130 Units/L [facility] Comment: Sample investigated and found to be [...] See Comment 7 - 55 Units/L [facility] Comment: Sample investigated and found to be [...] See Comment 10 - 50 Units/L [facility] Comment: Sample investigated and found to be [...] BLOOD ORDERABLES E dited Result - Final [facility] Department [place] [address] * Lactate (06/16/2024 3:05 PM CDT) Pathologist [facility] Lactate 1.4 0.7 - 2.0 mmol/L Blood 06/16/2024 3:05 PM CDT 06/16/2024 3:31 PM CDT Rukhsana Nunez NP LAB BLOOD ORDERABLES F inal Result Performing Organization Address [facility] Phone Number [facility] [place] [address] * Phosphorus (06/16/2024 3:05 PM CDT) Pathologist [facility] Phosphorus, pl See Comment 2.3 - 4.5 [...] dited Result - Final Performing Organization Address [facility] de Phone Number [facility] [place] [address] * Magnesium (06/16/2024 3:05 PM CDT) Pathologist [facility] Magnesium See Comment 1.4 - 2.5 mg/dL [...] BLOOD ORDERABLES E dited Result - Final [facility] Department [place] [address] * (ABNORMAL) POC Blood Gas and Chemistries, Arterial - (06/16/2024 2:45 PM CDT) pH, Art POC 7.28(L) 7.35 - 7.45 pCO2, Art POC 56(H) 35 - 45 mmHg [facility] pO2, Art POC 159(H) 83 - 108 mmHg [facility] Na, POC 138 135 - 145 mmol/L [facility] K POC 4.9 3.3 - 4.9 mmol/L [facility] Comment: Interpretive Data Not all point of care methods assess for hemolysis. Confirm with instrument and retest K+ if not consistent with clinical signs and symptoms. Current Interpretive Data was last revised on 2024. Cl, POC 106 97 - 110 mmol/L [facility] Ionized Ca, POC 4.91 4.50 - 5.10 mg/dL [facility] Glucose, POC 193 70 - 199 mg/dL [facility] Lactate, POC 1.3 0.7 - 2.2 mmol/L [facility] SO2 (juan josé) arterial 100(H) 90 - 95 % [facility] Base excess, POC -1.1 mmol/L [facility] HCO3, Art POC 26 20 - 30 mmol/L [facility] Hct, POC 33.0(L) 41.4 - 51.6 % [facility] Total Hb, POC 11.0(L) 13.8 - 17.2 g/dL [facility] Blood 06/16/2024 2:45 PM CDT 06/16/2024 2:45 PM CDT Kirt Hernandez MD PhD LAB POCT ORDE RABLES - DEVICE Final Result Performing Organization Address City/[facility]/ZIP Co de Phone Number [facility] Department [place] [address] * POCT glucose (06/16/2024 2:34 PM CDT) Glucose, POC 139 70 - 199 mg/dL Blood 06/16/2024 2:34 PM CDT 06/16/2024 2:34 PM CDT Kirt Hernandez MD PhD LAB POCT ORDE RABLES - DEVICE Final Result Performing Organization Address [facility] Co de Phone Number ZULEMA [facility] [place] [address] * XR Chest 1 View (06/16/2024 2:11 [...] - DEVICE Final Result Performing Organization Address City/[facility]/ZIP Co de Phone Number [facility] [place] [address] * POCT glucose (06/16/2024 10:18 AM CDT) Glucose, POC 82 70 - 199 mg/dL Blood 06/16/2024 10:1 8 AM CDT 06/16/2024 10:18 AM CDT Kirt Hernandez MD PhD LAB POCT ORDE RABLES - DEVICE Final Result Performing Organization Address City/[facility]/ZIP Co de Phone Number [facility] Department [place] [address] * Mycobacterium tuberculosis PCR Bronchoalveolar lavage (06/16/2024 9:24 AM CDT) Report Final Report: Target not detected Organism TARGET NOT DETECTED [facility] Bronchoalveolar lavage 06/16 9:24 AM CDT 06/17/2024 2:01 PM CDT Narrative [facility]LEMA DENT - 06/17/2024 5:44 PM CDT 1. Nucleic acid amplification for detection of Mycobacterium tuberculosis complex is performed using the [employer] GeneXpert MTB/RIF assay. ??This assay has been approved by the [place] Food and Drug administration for detection of M. tuberculosis in sputum samples. ??The performance characteristics of this test have been verified by the [facility] Microbiology laboratory for sputum samples and [...] MICROBIOLOGY - G ENERAL ORDERABLES Final Result [facility] Department [place] [address] * Mycobacterium tuberculosis PCR Bronchial washing (06/16/2024 9:24 AM CDT) Report Final Report: Target not detected Organism TARGET NOT DETECTED [facility] Bronchial washing 06/16/2024 9:24 AM CDT 06/17/2024 1:59 PM CDT Narrative ZULEMA DENT - 06/17/2024 5:44 PM CDT 1. Nucleic acid amplification for detection of Mycobacterium tuberculosis complex is performed using the [employer] GeneXpert MTB/RIF assay. ??This assay has been approved by the [place] Food and Drug administration for detection of M. tuberculosis in sputum samples. ??The performance characteristics of this test have been verified by the [facility] Microbiology laboratory for sputum samples and [...] Parviz Hannon MD PhD LAB MICROBIOLOGY - [facility] ORDERABLES Final Result Z[facility]LEMA [facility] Department [place] [address] * Cell Differential, Body Fluid (06/16/2024 9:24 AM CDT) Total cells diffed 100 cells Comment: Interpretive Data Unless otherwise specified, the reference range and other method performance specifications have not been established for CSF/Body Fluid tests. ??The test results should be integrated into the clinical context for interpretation. Current interpretive data was last revised on 2019. Neutrophils, fld 89 % [facility] Lymphs, fld 6 % [facility] Eosinophils, fld 5 % [facility] Fluid 06/16/2024 9:24 AM CDT 06/16/2024 10:42 AM CDT Cameron Russell MD LAB BODY FLUIDS AND STOOLS O RDERABLES Final Result [facility] Department [place] [address] * Mycobacterium tuberculosis PCR Bronchial washing (06/16/2024 9:24 AM CDT) Report Final Report: Target not detected Organism TARGET NOT DETECTED [facility] Bronchial washing 06/16/2024 9:24 AM CDT 06/16/2024 10:45 AM CDT Narrative [facility] - 06/16/2024 7:04 PM CDT 1. Nucleic acid amplification for detection of Mycobacterium tuberculosis complex is performed using the [employer] GeneXpert MTB/RIF assay. ??This assay has been approved by the [place] Food and Drug administration for detection of M. tuberculosis in sputum samples. ??The performance characteristics of this test have been verified by the [facility] Microbiology laboratory for sputum samples and [...] O RDERABLES Final Result Performing Organization Address City/[facility]/ZIP Co de Phone Number [facility] Department [place] [address] * (ABNORMAL) Aerobic culture and gram stain Bronchial washing Bronchial (06/16/2024 9:24 AM CDT) Direct Specimen Exam Stain: Cytospin Gram stain shows: Moderate polymorphonuclear leukocytes seen. No squamous epithelial cells seen. Other cellular material present. Moderate mixed bacterial oscar seen on Gram stain. Report Final Report: 10,000 to 100,000 colonies/mL of Stenotrophomonas maltophilia Plus growth of clinically insignificant bacterial oscar. (.) [facility] Organism PLUS GROWTH OF CLINICALLY INSIGNIFICANT OSCAR. [facility] Organism STENOTROPHOMONAS [facility] Bronchial washing (Bronchial) 06/16/2024 9:24 AM CDT 06/16/2024 10:45 AM CDT Narrative [facility] - 06/22/2024 10:28 AM CDT Testing performed by [facility]biology Laboratory ([phone]) Specimens submitted from normally sterile body sites [...] RDERABLES Final Result Performing Organization Address [facility]/ZIP Co de Phone Number ZULEMA DENT Daniela [facility] Department [place] [address] * Mycology (fungal) culture Bronchial washing Bronchial (06/16/2024 9:24 AM CDT) Report Final Report: No growth of fungus Bronchial washing (Bronchial) 06/16/2024 9:24 AM CDT 06/16/2024 10:45 AM CDT Narrative ZULEMA DENT - 07/14/2024 7:43 AM CDT Testing performed by [facility] Microbiology Laboratory ([phone]). us Cameron Russell MD LAB MICROBIOLOGY - GENERAL O RDERABLES Final Result ZULEMA [facility] Daniela [facility] Department [place] [address] * (ABNORMAL) Mycobacteriology (AFB) culture and acid-fast [...] ??* ??* ??* Susceptibility performed by the [facility], [address] [place] [address] [address], [place], [place] [address] (.) ZULEMA SOMMERS Organism MYCOBACTERIUM AVIUM ZULEMA SOMMERS Bronchial washing (Bronchial) 06/16/2024 9:24 AM CDT 06/16/2024 10:45 AM CDT Narrative ZULEMA DENT - 08/19/2024 10:57 AM CDT Testing performed by [facility] Microbiology Laboratory ([phone]). Cameron Russell MD LAB MICROBIOLOGY - GENERAL O RDERABLES Final Result [facility] Department [place] [address] * Mycobacterium tuberculosis PCR Bronchoalveolar lavage (06/16/2024 9:24 AM CDT) Report Final Report: Target not detected Organism TARGET NOT DETECTED [facility] Bronchoalveolar lavage 06/16 9:24 AM CDT 06/16/2024 10:46 AM CDT Narrative ZULEMA [facility] - 06/16/2024 7:05 PM CDT 1. Nucleic acid amplification for detection of Mycobacterium tuberculosis complex is performed using the [employer] GeneXpert MTB/RIF assay. ??This assay has been approved by the [place] Food and Drug administration for detection of M. tuberculosis in sputum samples. ??The performance characteristics of this test have been verified by the [facility] Microbiology laboratory for sputum samples and [...] O MARIELLA Final Result Performing Organization Address [facility] Co de Phone Number ZULEMA SOMMERS [facility] Department [place] [address] * Cell count w/rflx diff, body fluid [...] revised on 2019. RBC, fld 0 /cumm [facility] Fluid 06/16/2024 9:24 AM CDT 06/16/2024 10:42 AM CDT Cameron Russell MD LAB BODY FLUIDS AND STOOLS O MARIELLA Final Result Performing Organization Address [facility] Co de Phone Number ZULEMA Suarez [facility] Department [place] [address] * (ABNORMAL) Aerobic culture and gram stain Bronchoalveolar lavage Bronchial (06/16/2024 9:24 AM CDT) Direct Specimen Exam Stain: Cytospin Gram stain shows: Rare polymorphonuclear leukocytes seen. No squamous epithelial cells seen. No organisms seen. Report Final Report: Greater than or equal to 1,000 colonies/ml of Stenotrophomonas maltophilia For susceptibility results, refer to accession number [id number] on the bronch wash culture from 06/16/24 Plus growth of clinically insignificant bacterial oscar. (.) CERNER [facility] Organism PLUS GROWTH OF CLINICALLY INSIGNIFICANT [facility] Organism STENOTROPHOMONAS MALTOPHILIA [facility] Bronchoalveolar lavage (Bronchial) 06/16/2024 9:24 AM CDT 06/16/2024 10:46 AM CDT Narrative ZULEMA [facility] - 06/18/2024 10:37 AM CDT Testing performed by [facility] Microbiology Laboratory ([phone]) Specimens submitted from normally sterile body sites [...] RDERABLES Final Result Performing Organization Address [facility] de Phone Number [facility] Department [place] [address] * Pneumocystis DFA Bronchoalveolar lavage (06/16/2024 9:24 AM CDT) Report Direct Stain Examination - Final: Negative for: Pneumocystis jirovecii Bronchoalveolar lavage 06/16 9:24 AM CDT 06/16/2024 10:46 AM CDT Narrative ZULEMA [facility] - 06/17/2024 3:06 PM CDT The Pneumocystis [...] RDERABLES Final Result Performing Organization Address [facility] Co de Phone Number [facility] Department [place] [address] * Mycology (fungal) culture Bronchoalveolar lavage Bronchial (06/16/2024 9:24 AM CDT) Report Final Report: No growth of fungus Bronchoalveolar lavage (Bronchial) 06/16/2024 9:24 AM CDT 06/16/2024 10:46 AM CDT Narrative ZULEMA DENT - 07/14/2024 7:44 AM CDT Testing performed by [facility] Microbiology Laboratory ([phone]). us Cameron Russell MD LAB MICROBIOLOGY - GENERAL O RDERABLES Final Result Performing Organization Address City/[facility]/ZIP Co de Phone Number ZULEMA [facility] [address] * (ABNORMAL) Mycobacteriology (AFB) culture and acid-fast stain Bronchoalveolar lavage Bronchial (06/16/2024 9:24 AM CDT) Direct Specimen Exam Stain: Few Acid Fast Bacilli Seen Notification of: Acid Fast Bacilli called to and read back by: Sonia Figueroa NP ([phone]) and [place] SAA[facility] ([phone]) on 06/17/2024 14:19:35 by: Stefany Bianchi MLS Report Final Report: Abundant Mycobacterium avium For susceptibility results, refer to accession number [id number] on the Bronch wash culture from 06/16/24 9:24 (.) ZULEMA [facility] Organism MYCOBACTERIUM AVIUM ZULEMA DENT Bronchoalveolar lavage (Bronchial) 06/16/2024 9:24 AM CDT 06/16/2024 10:46 AM CDT Narrative ZULEMA DENT - 07/29/2024 9:45 AM CDT Testing performed by [facility] Microbiology Laboratory ([phone]). Cameron Russell MD LAB MICROBIOLOGY - GENERAL O RDERABLES Final Result Performing Organization Address City/[facility]/ZIP Co de Phone Number ZULEMA [facility] One [facility] [place] [address] * Cytology (06/16/2024 9:12 AM CDT) Fluid (Bronch Lavage (Cytology)) 06/16/2024 9:12 AM CDT 06/16/2024 11:01 AM CDT Narrative PATHOLOGY [facility] - 06/17/2024 5:30 PM CDT EPIC results best viewed via link to PDF [facility] Ramonita Jaramillo Laboratory [place] [address] Note to Patients: This report may contain [...] ??1965 (Age: 58) Address: ??[address] [place], [place] ??[address] Hospital #: ??[id number] Taken:06/16/2024 Received:06/16/2024 Reported: 06/17/2024 Patient Type: [facility] Inpatient ?? Service: BoneMar[facility]pl Location: [address] IC Physician(s): ??Cameron Russell M.D. Kirt [...] Surgical Pathology and Flow Cytometry Departments at [facility] as part of an ongoing water quality technician program and in compliance with federally mandated [...] Surgical Pathology and Flow Cytometry Departments of [facility]. ??It has not been cleared or approved by the U. S. Food and Drug Administration. Cameron Russell MD LAB CYTOLOGY ORDERABLES Pilar armas Result PATHOLOGY [facility] 3rd Floor [place], [place] [phone] * Bronchoscopy - (06/16/2024 8:32 AM CDT) Anatomical Region Laterality Modality Other Narrative Procedure Note Cameron Russell MD - 06/16/2024 8:32 AM CDT [facility] Respiratory Care Patient Name: Bri Jones Procedure Date: 06/16/2024 8:32 AM Date of : 1965 Admit Type: Inpatient Age: 58 Room: [facility] Gender: Male Note Status: Finalized Procedure: Bronchoscopy [...] Conscious sedation note: I personally provided direct [id number] monitoring of conscious sedation administered by an [...] Grace MD LAB BLOOD ORDERABLES Final Result [facility] Department [place] [address] * (ABNORMAL) Manual Differential (06/16/2024 3:37 AM CDT) Differential Manual [facility] Neutrophil abs 6.5 1.5 - 6.5 K/cumm [facility] Imm gran abs 0.0 0.0 - 0.1 K/cumm [facility] Lymphocyte abs 3.1 0.8 - 3.3 K/cumm [facility] Monocyte abs 0.9(H) 0.2 - 0.8 K/cumm [facility] Eosinophil abs 0.3 0.0 - 0.5 K/cumm [facility] Neutrophil pct 60.0 % [facility] Comment: Interpretive Data Percent cell count reference ranges are not reported, since discordance with absolute values may lead to misinterpretation of CBC data. Current Interpretive Data was last revised on 2018. Lymphocyte pct 28.7 % [facility] Comment: Interpretive Data Percent cell count reference ranges are not reported, since discordance with absolute values may lead to misinterpretation of CBC data. Current Interpretive Data was last revised on 2018. Monocyte pct 8.7 % [facility] Comment: Interpretive Data Percent cell count reference ranges are not reported, since discordance with absolute values may lead to misinterpretation of CBC data. Current Interpretive Data was last revised on 2018. Eosinophil pct 2.6 % [facility] Comment: Interpretive Data Percent cell count reference ranges are not reported, since discordance with absolute values may lead to misinterpretation of CBC data. Current Interpretive Data was last revised on 2018. RBC morphology Present(A) [facility] Anisocytosis Moderate(A) [facility] Macrocytes 8-15/HPF(A) [facility] Platelet estimate Adequate [facility] Blood 06/16/2024 3:37 AM CDT 06/16/2024 3:58 AM CDT us Anthony Grace MD LAB BLOOD ORDERABLES Edited Result - Final [facility] Department [place] [address] * (ABNORMAL) CBC without differential (06/16/2024 3:37 AM CDT) WBC 10.8(H) 3.8 - 9.9 K/cumm Hgb 10.2(L) 13.0 - 17.5 g/dL [facility] Hct 31.3(L) 38.9 - 50.3 % [facility] Plt 435(H) 150 - 400 K/cumm [facility] MPV 10.3 9.1 - 12.3 fL [facility] RBC 3.06(L) 4.30 - 5.80 M/cumm [facility] MCV 102.3(H) 81.3 - 96.4 fL [facility] MCH 33.3 27.1 - 33.3 pg [facility] MCHC 32.6 32.3 - 35.7 g/dL [facility] RDW CV 15.2(H) 11.1 - 14.9 % [facility] RDW SD 56.7(H) 35.7 - 48.1 fL [facility] NRBC abs 0.00 0.00 - 0.01 K/cumm [facility] Blood 06/16/2024 3:37 AM CDT 06/16/2024 3:58 AM CDT us Anthony Grace MD LAB BLOOD ORDERABLES Final Result [facility] Department [place] [address] * Basic metabolic panel (06/16/2024 3:37 AM CDT) Sodium 137 135 - 145 mmol/L Potassium, pl 4.2 3.3 - 4.9 mmol/L [facility] Chloride 101 97 - 110 mmol/L [facility] CO2 28 22 - 32 mmol/L [facility] Anion gap 8 2 - 15 mmol/L [facility] BUN 17 6 - 25 mg/dL [facility] Creatinine 0.97 0.80 - 1.30 mg/dL [facility] Glucose 90 70 - 199 mg/dL [facility] Comment: Interpretive Data Fasting glucose >/= 126 [...] 2022. Calcium 8.8 8.5 - 10.3 mg/dL [facility] Blood 06/16/2024 3:37 AM CDT 06/16/2024 3:58 AM CDT Narrative [facility] - 06/16/2024 4:28 AM CDT Daily except Saturday and . Morning draw. Parviz Hannon MD PhD LAB BLOOD ORDERABLES Final Result Performing Organization Address [facility] Co de Phone Number [facility] [place] [address] * Phosphorus (06/16/2024 3:37 AM CDT) Phosphorus, pl 2.5 2.3 - 4.5 mg/dL Blood 06/16/2024 3:37 AM CDT 06/16/2024 3:58 AM CDT Parviz Hannon MD PhD LAB BLOOD ORDERABLES Final Result Performing Organization Address [facility] de Phone Number [facility] [place] [address] * Magnesium (06/16/2024 3:37 AM CDT) Magnesium 1.5 1.4 - 2.5 mg/dL Blood 06/16/2024 3:37 AM CDT 06/16/2024 3:58 AM CDT Parviz Hannon MD PhD LAB BLOOD ORDERABLES Final Result Performing Organization Address City/[facility] de Phone Number [facility] [place] [address] * POCT glucose (06/15/2024 10:31 PM CDT) Glucose, POC 145 70 - 199 mg/dL Blood 06/15/2024 10:3 1 PM CDT 06/15/2024 10:31 PM CDT Kirt Hernandez MD PhD LAB POCT ZAC BRANNONLES - DEVICE Final Result Performing Organization Address City/[facility]/ZIP Co de Phone Number [facility] Department [place] [address] * ECG 12 lead (06/15/2024 5:29 PM CDT) Ventricular Rate EKG/Min 97 BPM [facility] Atrial Rate 97 BPM [facility] MD-Interval (MSEC) 138 ms [facility] QRS-Interval (MSEC) 78 ms [facility] QT-Interval (MSEC) 350 ms [facility] QTc 444 ms [facility] P Surprise 85 degrees [facility] R Surprise 88 degrees [facility] T Surprise 10 degrees [facility] Diagnosis Normal sinus rhythm [...] Anterior leads Confirmed by SOHAM WINTERS M.D ([id number]) on 06/17/2024 11:43:02 AM [facility] 06/15/2024 5:29 PM CDT 06/17/2024 11:43 AM CDT us Anthony Grace MD ECG ORDERABLES Final Resul t Performing Organization Address [facility]/ZIP Co de Phone Number [facility] * Infection Prevention MRSA Only (Staphylococcus aureus) Culture Nasal (06/15/2024 5:18 PM CDT) Report Final Report: Negative Nasal 06/15/2024 5:18 PM CDT 06/15/2024 5:30 PM CDT Narrative ZULEMA [facility] - 06/16/2024 5:52 PM CDT Testing performed by [facility] Microbiology Laboratory ([phone]). us Anthony Grace MD LAB MICROBIOLOGY - GENERAL ORDERABLES Final Result Performing Organization Address [facility] [place] [address] * (ABNORMAL) Hemoglobin A1c (06/15/2024 5:18 PM CDT) [facility] Hgb A1C 6.7(H) 4.0 - 5.6 % Estimated Average Glucose 146 mg/dL [facility] Comment: The ADA recommends reporting an estimated [...] Result Performing Organization Address [facility] de Phone Number [facility] [place] [address] * Cryptococcal Antigen, Serum Blood (06/15/2024 5:18 PM CDT) [facility] Cryptococcus ag, Serum Negative Negative Comment: [...] GENERAL ORDERABLES Final Result Performing Organization Address [facility] Co de [place] [address] * Blastomyces antibody, EIA, serum Blood (06/15/2024 5:18 PM CDT) Pathologist [facility] Blastomyces Antibody Negative Negative [facility] Comment: A single negative result does not exclude the diagnosis of blastomycosis. ??Repeat testing on a new sample in 7-14 days if clinically indicated. Test Performed by: [place] [address] Silk Finisher: Cayden Orellana Ph.D.; CLIA# [id number] Blood 06/15/2024 5:18 PM CDT 06/15/2024 6:30 PM CDT Anthony Grace MD LAB MICROBIOLOGY - GENERAL ORDERABLES Final Result Performing Organization Address [facility] Co de Phone Number [facility] [place] [address] [facility] * Aspergillus galactomannan antigen Blood (06/15/2024 5:18 PM CDT) Pathologist [facility] Aspergillus galactomannan Ag <0.500 <0.5 Index [facility] Comment: ADDITIONAL INFORMATION This is a qualitative test and the resulted index value is not indicative of disease severity. ??Serial testing is recommended for patients at high risk for invasive aspergillosis. This assay was performed using the FDA-cleared [employer] Aspergillus Galactomannan EIA. Test Performed by: [place] [address] Silk Finisher: Cayden Orellana Ph.D.; CLIA# [id number] Blood 06/15/2024 5:18 PM CDT 06/15/2024 5:30 PM CDT Anthony Grace MD LAB MICROBIOLOGY - GENERAL ORDERABLES Final Result Performing Organization Address [facility] Co de Phone Number ZULEMA [facility] Department [place] [address] [facility] * Histoplasma Antibody Blood (06/15/2024 5:18 PM CDT) Pathologist [facility] Histoplasma Ab, yeast CF Negative Negative [facility] Lab Histoplasma Ab, Immunodiffusion Negative Negative [facility] Comment: A negative complement fixation and immunodiffusion (CF/ID) result does not exclude the diagnosis of histoplasmosis. ?? Repeat testing by CF/ID in 1-2 weeks if clinically indicated. Test Performed by: [facility] [address] [place] [address] Silk Finisher: Cayden Orellana Ph.D.; CLIA# [id number] Blood 06/15/2024 5:18 PM CDT 06/15/2024 6:00 PM CDT Anthony Grace MD LAB MICROBIOLOGY - GENERAL ORDERABLES Final Result Performing Organization Address [facility] Co de Phone Number ZULEMA [facility] Department [place] [address] [facility] Lab * ECG 12 lead (06/15/2024 5:16 PM CDT) Pathologist [facility] Ventricular Rate EKG/Min 157 BPM [facility] Atrial Rate 79 BPM [facility] QRS-Interval (MSEC) 66 ms [facility] QT-Interval (MSEC) 324 ms [facility] QTc 523 ms [facility] R Surprise 94 degrees [facility] T Surprise -28 degrees [facility] Diagnosis Supraventricular tachycardia Rightward axis ST & T wave abnormality, consider inferolateral ischemia Abnormal ECG When compared with ECG of 15-JUN-2024 17:01, (unconfirmed) T wave inversion more evident in Lateral leads Confirmed by SOHAM WINTERS M.D ([id number]) on 06/17/2024 11:42:34 AM [facility] 06/15/2024 5:16 PM CDT 06/17/2024 11:42 AM CDT Anthony Grace MD ECG ORDERABLES Final Resul t Performing Organization Address [facility] Phone Number [facility] * ECG 12 lead (06/15/2024 5:01 PM CDT) Ventricular Rate EKG/Min 156 BPM [facility] Atrial Rate 156 BPM [facility] QRS-Interval (MSEC) 74 ms [facility] QT-Interval (MSEC) 288 ms [facility] QTc 464 ms [facility] R Surprise 89 degrees [facility] T Surprise -43 degrees [facility] Diagnosis Supraventricular tachycardia ST & T wave abnormality, consider inferolateral ischemia Abnormal ECG When compared with ECG of 15-JUN-2024 10:30, (unconfirmed) dupraventricular tachycardia has appeared Confirmed by SOHAM WINTERS M.D ([id number]) on 06/17/2024 11:41:50 AM [facility] 06/15/2024 5:01 PM CDT 06/17/2024 11:41 AM CDT Anthony Grace MD ECG ORDERABLES Final Resul t Performing Organization Address [facility] Phone Number [facility] * (ABNORMAL) Pro B-type natriuretic peptide (06/15/2024 [...] LAB BLOOD ORDERABLES Fin al Result ZULEMA [facility] Department of Laboratories [place], [place] [id number] * eGFR (06/15/2024 1:24 PM CDT) eGFR [...] BLOOD ORDERABLES Final Result Performing Organization Address City/State/[facility] Co de Phone Number [facility] Department [place] [address] * (ABNORMAL) Manual Differential (06/15/2024 1:24 PM CDT) Differential Manual Cells Counted 115 [facility] Neutrophil abs 6.0 1.5 - 6.5 K/cumm [facility] Imm gran abs 0.0 0.0 - 0.1 K/cumm [facility] Lymphocyte abs 2.1 0.8 - 3.3 K/cumm [facility] Monocyte abs 0.9(H) 0.2 - 0.8 K/cumm [facility] Eosinophil abs 0.7(H) 0.0 - 0.5 K/cumm [facility] Neutrophil pct 61.7 % [facility] Comment: Interpretive Data Percent cell count reference ranges are not reported, since discordance with absolute values may lead to misinterpretation of CBC data. Current Interpretive Data was last revised on 2018. Lymphocyte pct 21.7 % [facility] Comment: Interpretive Data Percent cell count reference ranges are not reported, since discordance with absolute values may lead to misinterpretation of CBC data. Current Interpretive Data was last revised on 2018. Monocyte pct 9.6 % [facility] Comment: Interpretive Data Percent cell count reference ranges are not reported, since discordance with absolute values may lead to misinterpretation of CBC data. Current Interpretive Data was last revised on 2018. Eosinophil pct 7.0 % [facility] Comment: Interpretive Data Percent cell count reference ranges are not reported, since discordance with absolute values may lead to misinterpretation of CBC data. Current Interpretive Data was last revised on 2018. RBC morphology Present(A) [facility] Anisocytosis Moderate(A ) [facility] Macrocytes 8-15/HPF(A ) [facility] Platelet estimate Increased( A) [facility] Blood 06/15/2024 1:24 PM CDT 06/15/2024 1:36 PM CDT us Anthony Grace MD LAB BLOOD ORDERABLES Final Result [facility] Department [place] [address] * (ABNORMAL) CBC without differential (06/15/2024 1:24 PM CDT) WBC 9.8 3.8 - 9.9 K/cumm Hgb 10.9(L) 13.0 - 17.5 g/dL [facility] Hct 33.6(L) 38.9 - 50.3 % [facility] Plt 471(H) 150 - 400 K/cumm [facility] MPV 10.3 9.1 - 12.3 fL [facility] RBC 3.30(L) 4.30 - 5.80 M/cumm [facility] MCV 101.8(H) 81.3 - 96.4 fL [facility] MCH 33.0 27.1 - 33.3 pg [facility] MCHC 32.4 32.3 - 35.7 g/dL [facility] RDW CV 14.7 11.1 - 14.9 % [facility] RDW SD 55.0(H) 35.7 - 48.1 fL [facility] NRBC abs 0.00 0.00 - 0.01 K/cumm [facility] Blood 06/15/2024 1:24 PM CDT 06/15/2024 1:36 PM CDT Anthony Grace MD LAB BLOOD ORDERABLES Final Result Performing Organization Address City/State/[facility] de Phone Number [facility] Department [place] [address] * Respiratory pathogen panel Nasopharyngeal (06/15/2024 1:24 PM CDT) Pathologist [facility] Influenza A RNA Not Detected Not Detected Influenza B RNA Not Detected Not Detected [facility] RSV RNA Not Detected Not Detected [facility] COVID-19 RNA Not Detected Not Detected [facility] Coronavirus 229E RNA Not Detected Not Detected [facility] Coronavirus HKU1 RNA Not Detected Not Detected [facility] Coronavirus NL63 RNA Not Detected Not Detected [facility] Coronavirus OC43 RNA Not Detected Not Detected [facility] Adenovirus DNA Not Detected Not Detected [facility] Metapneumovirus RNA Not Detected Not Detected [facility] Rhinovirus/Enterov irus RNA Not Detected Not Detected [facility] Parainfluenza 1 RNA Not Detected Not Detected [facility] Parainfluenza 2 RNA Not Detected Not Detected [facility] Parainfluenza 3 RNA Not Detected Not Detected [facility] Parainfluenza 4 RNA Not Detected Not Detected [facility] B. pertussis DNA Not Detected Not Detected [facility] B. parapertussis DNA Not Detected Not Detected [facility] C. pneumoniae DNA Not Detected Not Detected [facility] M. pneumoniae DNA Not Detected Not Detected [facility] Nasopharyngeal 06/15/2024 1: 24 PM CDT 06/15/2024 1:51 PM CDT Narrative ZULEMA DENT - 06/15/2024 3:06 PM CDT Is the Patient experiencing symptoms consistent with COVID?->Yes Surveillance testing for transplant patient?->No ??Interpretive Data The Klout FilmArray Respiratory Panel (RP2.1) assay is a [...] assay has FDA clearance for testing of DEMONSTRATOR KNITTING swabs. ??The performance of additional specimen types has been assessed by the performing laboratory. ??The performance characteristics of this assay have been determined by [facility] Infectious Disease [facility]. Current interpretive data was last revised on 22. Anthony Grace MD LAB MICROBIOLOGY - GENERAL ORDERABLES Final Result Performing Organization Address [facility] [place] [address] * (ABNORMAL) Fibrinogen (06/15/2024 1:24 PM CDT) Pathologist [facility] Fibrinogen 770(H) 170 - 400 mg/dL Blood 06/15/2024 1:24 PM CDT 06/15/2024 1:40 PM CDT Result [place] [facility] Anthony Grace MD LAB BLOOD ORDERABLES Final Result Performing Organization Address [facility] [place] [address] * Type and screen (06/15/2024 1:24 PM CDT) Pathologist [facility] ABO Rh A Positive Ursula, indirect Negative [facility] Blood 06/15/2024 1:24 PM CDT 06/15/2024 1:38 PM CDT Narrative [facility] - 06/15/2024 2:31 PM CDT Has the patient had Daratumumab or Isatuximab in the past 6 months?->Unknown Result [place] Anthony Grace MD LAB BLOOD BANK TEST ORDERAB LES Final Result Performing Organization Address [facility] [place] [address] * aPTT (06/15/2024 1:24 PM CDT) aPTT [...] Final Result Performing Organization Address [facility] Co de Phone Number ZULEMA [facility] [place] [address] * Protime-INR (06/15/2024 1:24 PM CDT) PT 11.9 9.7 - 13.0 sec INR 1.10 0.90 - 1.20 [facility] Comment: Interpretive data Oral anticoagulant therapeutic ranges: Venous thromboembolism prophylaxis or treatment: 2.0-3.0 CARDIOLOGY Standard range: 2.0-3.0 High-intensity range: 2.5-3.5 Refer to indication-specific guidelines for appropriate target ranges for prosthetic heart valve replacement. Current interpretive data was last revised on 2019. Blood 06/15/2024 1:24 PM CDT 06/15/2024 1:40 PM CDT Anthony Grace MD LAB BLOOD ORDERABLES Final Result Performing Organization Address [facility] Co de Phone Number [facility] [place] [address] * Uric acid (06/15/2024 1:24 PM CDT) Uric acid 5.7 3.0 - 8.0 mg/dL Blood 06/15/2024 1:24 PM CDT 06/15/2024 1:36 PM CDT Anthony Grace MD LAB BLOOD ORDERABLES Final Result Performing Organization Address [facility] de Phone Number [facility] [place] [address] * (ABNORMAL) Lactate dehydrogenase (LD) (06/15/2024 1:24 PM CDT) Lactate dehydrogenase (LDH) 251(H) 100 - 250 Units/L Blood 06/15/2024 1:24 PM CDT 06/15/2024 1:36 PM CDT Anthony Grace MD LAB BLOOD ORDERABLES Final Result Performing Organization Address [facility] Phone Number [facility] [place] [address] * Phosphorus (06/15/2024 1:24 PM CDT) Phosphorus, pl 2.8 2.3 - 4.5 mg/dL Blood 06/15/2024 1:24 PM CDT 06/15/2024 1:36 PM CDT Anthony Grace MD LAB BLOOD ORDERABLES Final Result Performing Organization Address [facility] de Phone Number [facility] [place] [address] * Magnesium (06/15/2024 1:24 PM CDT) Magnesium 1.5 1.4 - 2.5 mg/dL Blood 06/15/2024 1:24 PM CDT 06/15/2024 1:36 PM CDT Anthony Grace MD LAB BLOOD ORDERABLES Final Result Performing Organization Address [facility]/ZIP Co de Phone Number [facility] Department [place] [address] * (ABNORMAL) Comprehensive metabolic panel (06/15/2024 1:24 PM CDT) Sodium 139 135 - 145 mmol/L Potassium, pl 4.3 3.3 - 4.9 mmol/L [facility] Chloride 101 97 - 110 mmol/L [facility] CO2 27 22 - 32 mmol/L [facility] Anion gap 11 2 - 15 mmol/L [facility] BUN 13 6 - 25 mg/dL [facility] Creatinine 0.80 0.80 - 1.30 mg/dL [facility] Glucose 119 70 - 199 mg/dL [facility] Comment: Interpretive Data Fasting glucose >/= 126 [...] 2022. Calcium 9.6 8.5 - 10.3 mg/dL [facility] Bilirubin, total 0.2 0.1 - 1.2 mg/dL [facility] Protein, pl 8.4 6.5 - 8.5 g/dL [facility] Albumin 3.3(L) 3.5 - 5.0 g/dL [facility] Alk phos 143(H) 40 - 130 Units/L [facility] ALT 13 7 - 55 Units/L [facility] AST 29 10 - 50 Units/L [facility] Blood 06/15/2024 1:24 PM CDT 06/15/2024 1:36 PM CDT us Anthony Grace MD LAB BLOOD ORDERABLES Final Result [facility] Department [place] [address] * XR Chest 1 View (06/15/2024 12:02 [...] 06/15/2024 at 2:00 PM Electronically signed by: Pealr Carvalho M.D. Narrative 06/15/2024 3:21 PM CDT [...] AM CDT) Ventricular Rate EKG/Min 92 BPM [facility] Atrial Rate 92 BPM [facility] MD-Interval (MSEC) 132 ms [facility] QRS-Interval (MSEC) 86 ms [facility] QT-Interval (MSEC) 368 ms [facility] QTc 455 ms [facility] P Surprise 86 degrees [facility] R Surprise 91 degrees [facility] T Surprise 70 degrees [facility] Diagnosis Sinus rhythm with frequent Premature ventricular [...] WINTERS M.D ([id number]) on 06/17/2024 11:40:57 AM [facility] 06/15/2024 10:2 9 AM CDT 06/17/2024 11:40 AM CDT Anthony Grace MD ECG ORDERABLES Final Resul t [facility] documented in this encounter Visit [...] Acute on chronic hypoxic respiratory failure (HCC) 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 in [...] PM CDT 6 mg aluminum & magnesium qgwbsbouy-mhtefyugwej-rdnzkdnoepxdzrv-lidocain e (MAGIC MOUTHWASH) oral suspension 1-1-1 15 [...] Given 06/16/2024 8:48 AM CDT 50 mcg nspdhzzadcq-klucmuvrj-ybxjlqlw (TRELEGY ELLIPTA) 200-62.5-25 mcg inhaler 1 puff [...] mL 3 mL, nebulization, 4 times daily (emergency spill response technician), First dose on Sat06/15/24 at 1215, Indications: Chronic Obstructive Pulmonary Disease with BronchospasmsIndications:Chron ic Obstructive Pulmonary Disease with Bronchospasms Given 06/15/2024 11:53 AM CDT 3 mL ipratropium-albuteroL (DUO-NEB) 0.5-2.5 mg/3 mL nebulizer solution 3 mL 3 mL, nebulization, Every 4 hours PRN (emergency spill response technician), wheezing, shortness of breath, Starting on Sat06/15/24 at 1315, Indications: Chronic Obstructive Pulmonary Disease with BronchospasmsIndications:Chron ic Obstructive Pulmonary Disease with Bronchospasms Given 06/16/2024 1:43 PM CDT 3 mL Given 06/15/2024 10:13 PM CDT 3 mL ipratropium-albuteroL (DUO-NEB) 0.5-2.5 mg/3 mL nebulizer solution 3 mL 3 mL, nebulization, 4 times daily (emergency spill response technician), First dose (after last modification) on Sat06/16/24 at 1700, Indications: Chronic Obstructive Pulmonary Disease with BronchospasmsIndications:Chronic Obstructive Pulmonary Disease with Bronchospasms Given 06/24/2024 10:55 AM CDT 3 mL Given 06/24/2024 8:31 AM CDT 3 mL Given 06/23/2024 8:34 PM CDT 3 mL lidocaine (PF) (XYLOCAINE) 20 mg/mL (2 %) preservative free injection 4 mL 4 mL, other, Once (emergency spill response technician), On Sat06/16/24 at 0915, For 1 dose, Pre-Op, Bronchoscopy staff to administer via catheter topically to vocal cords., Indications: Administration of Local AnesthesiaIndications:Administration of Local Anesthesia Given 06/16/2024 8:35 AM CDT 4 mL lidocaine (PF) (XYLOCAINE) 20 mg/mL (2 %) preservative free injection 4 mL 4 mL, nebulization, Once (emergency spill response technician), On Sat06/16/24 at 0915, For 1 dose, [...] Patel RN)1644 (Given - Provider: Dora Patel RN)2325 (Given - Provider: Chad Zendejas RN) 0935 (Given - Provider: Silva Rasheed RN)1505 (Given - Provider: Silva Rasheed, BECKI) atorvastatin (LIPITOR) tablet 40 mg 40 mg, oral, Daily, First dose on Sat06/15/24 at 1345 0801 (Given - Provider: Kimberly Guevara RN) 0806 (Given - Provider: Dora Patel, BECKI) 0931 (Given - Provider: Silva Rasheed, BECKI) qnjnlnhxofd-bhhwxplzr-x ilanter (TRELEGY ELLIPTA) 200-62.5-25 mcg inhaler 1 [...] not met)1505 (Not Given - Provider: Silva Rasheed RN [...] mL 3 mL, nebulization, 4 times daily (emergency spill response technician), First dose (after last modification) on Sat06/16/24 at 1700, Indications: Chronic Obstructive Pulmonary Disease with Bronchospasms 0900 (Given - Provider: Marisa Willams, DIGITAL COMMUNICATIONS MANAGER)141 (Given - Provider: Marisa Willams CRTT)170 (Given - Provider: Marisa Willams CRTT)2012 (Given - Provider: Abby Hassan, BRANDEN) 0819 (Given - Provider: Cruz Flood, CHARACTER ARTIST)1214 (Given - Provider: Cruz Flood, CHARACTER ARTIST)1720 (Given - Provider: Cruz Flood, BRANDEN)2034 (Given - Provider: Chad Oliveira, BRANDEN) 0831 (Given - Provider: Anahi Ruff, CHARACTER ARTIST)1055 (Given - Provider: Anahi Ruff, BRANDEN - [...] otherwise manipulate tablet/capsule. 0801 (Given - Provider: Kimberly Guevara RN)2036 (Given - Provider: Chad Zendejas [...] Patient/family refused) 0644 (Not Given - Provider: Nracisa Alva RN - Reason: Other)0754 (Canceled Entry [...] on Sat06/15/24 at 1125 aluminum & magnesium xdlzuamag-ybgdiirobrw-o iphenhydramine-lidocain e (MAGIC MOUTHWASH) oral suspension 1-1-1 [...] 2.5 mg 1 06/15/2024 aluminum & magnesium lnplyteeo-ljwvgzpzflk-uhayqqjgnljfvqh-lido aida (MAGIC MOUTHWASH) oral suspension 1-1-1 15 [...] First Orde red Date IP CONSULT TO MISSILE PAD MECHANIC 1 4 CONSULT TO TRANSPLANT INFECTIOUS DISEASE [...] documented as of this encounter Care Teams Unionmelt Operator Relationship Specialty Start Date End Date Kirt Lindsay DO PCP - General Internal Medicine 02/02/21 Josué Del Valle MD PhD Medical Oncologist/Service Desk Manager Medical Oncology 08/26/19 Cal Carranza DO [address] [place] [address] Loose Hand Packer Internal Medicine 06/12/23 Halie Khan MD [address] [facility] [address] [place] [address] Licensed Nuclear Operator Critical Care Med 06/12/23 Wilfred Kinsey MD [address] [address] Consulting Physician Gastroenterology 03/02/24 documented as of this encounter
--- OUTSIDE RECORDS SUMMARY | 2024-11-22 12:51 | XMS_ITS | Encounter Summary ---
Author Organization [facility] Healthcare Address [address] [place] [address] Care Team Providers Care Nut Sorter Operator Name Role Phone Josué Del Valle MD PhD Unavailable [phone] Kirt Lindsay DO Primary Care Provider [phone] Cal Carranza DO Unavailable [phone] Halie Khan MD Unavailable [phone] Wilfred Kinsey MD Unavailable Encounter Details Date Type Department Care Team (Late st Contact Info) Description 05/04/2024 TCC Subsequent Outreach [facility] [address] [place] [id number] Steve Tobin, RN Social History Tobacco Use [...] week 03/30/2024 How often do you attend adventist or denominational serv ices? Never 03/30/2024 Do you belong to any clubs o r organizations such as adventist groups, unions, fraternal or athletic groups, or [...] in a chcf (including now)? No 03/30/2024 Personal Safety Answer Date Recorded Have you ever been in or are you currently in a harmful physical or emotional relationship or is someone making you feel afraid or unsafe? 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 [...] on filedocumented in this encounter Care Teams Nut Sorter Operator Relationship Specialty Start Date End Date YaKirt casas DO PCP - General Internal Medicine 02/02/21 Josué Del Valle MD PhD Medical Oncologist/Manufacturing Mechanic Medical Oncology 08/26/19 Cal Carranza DO [address] [place] [address] Guncotton Packer Internal Medicine 06/12/23 Halie Khan MD [address] [address] Drive In Waiter/Waitress Critical Care Med 06/12/23 Wilfred Kinsey MD [address] [address] Consulting Physician Gastroenterology 03/02/24 documented as of this encounter
--- OUTSIDE RECORDS SUMMARY | 2024-11-22 12:51 | XMS_ITS | Encounter Summary ---
Author Organization [facility] Healthcare Address [address] [place] [address] Care Team Providers Care Electrical Designer Name Role Phone Josué Del Valle MD PhD Unavailable [phone] Kirt Lindsay DO Primary Care Provider [phone] Cal Carranza DO Unavailable [phone] Halie Khan MD Unavailable [phone] Wilfred Kinsey MD Unavailable Encounter Details Date Type Department Care Team (Latest Contact Info) Description 06/12/2024 3:33 PM CDT - 06/12/2024 11:59 PM CDT Hospital Encounter [facility] [address] [place] [address] Discharge Disposition: Discharge to home or self [...] week 03/30/2024 How often do you attend gnosticist or mosque serv ices? Never 03/30/2024 Do you belong to any clubs o r organizations such as gnosticist groups, unions, fraternal or athletic groups, or [...] file Legal Sex Male 10:48 AM DIRECTOR EHS Gender Identity Not on file Sexual Orientation [...] flash glucose scanning reader (FreeStyle Evaristo 2 [place]) [facility] Use to test blood glucose [...] pulmonary disease, unspecified COPD type ([facility]) Inhale 2 puffs every 6 (six) hours as needed for wheezing 6.7 g 3 01/15/20 24 024 ascorbic acid 500 mg tablet,chewable Take 1 tablet/chew tab (500 mg total) by mouth daily 024 atorvastatin (LIPITOR) 40 mg tabletIndications:AML (acute myeloid leukemia) in remission ([facility]),Type 2 diabetes mellitus with hyperglycemia, with long-term current use of insulin ([facility]),Sgtym-ktjsdy-qcju disease ([facility]),H/O allogeneic bone marrow transplant ([facility]),Pure hypercholesterolemia Take 1 tablet (40 mg total) by mouth daily 30 tablet 6 01/15/20 024 diphenhydrAMINE-acetamin ophen (TYLENOL PM) 25-500 mg tablet Take 2 tablets by mouth nightly as needed for sleep 024 xmbxfkoherx-crbizmzbz-bb lanter (Trelegy Ellipta) 200-62.5-25 mcg inhaler Inhale 1 puff daily 024 gabapentin (NEURONTIN) 300 mg capsuleIndications:Acute myeloblastic leukemia, in remission ([facility]) TAKE ONE CAPSULE BY MOUTH FOUR TIMES DAILY @ [id number]-9PM 120 capsule 11 05/13/20 24 025 insulin [...] only and have not been reviewed by [facility] Radiology. ??There will be no report generated by a [facility] Radiologist. Narrative [facility] - 06/12/2024 3:33 PM CDT EXAMINATION: ??Images For Reference Purposes Only us Josué Del Valle MD PhD IMG CT PROCEDURES Final Result [facility] documented in this encounter Visit Diagnoses Not on filedocumented in this encounter Care Teams Electrical Designer Relationship Specialty Start Date End Date Kirt Lindsay DO PCP - General Internal Medicine 02/02/21 Josué Del Valle MD PhD Medical Oncologist/Integration Developer Medical Oncology 08/26/19 Cal Carranza DO [address] [address] Party Plan Dealer Internal Medicine 06/12/23 Halie Khan MD [address] [id number] Pressurization Mechanic Critical Care Med 06/12/23 Wilfred Kinsey MD [address] [address] Consulting Physician Gastroenterology 03/02/24 documented as of this encounter
--- OUTSIDE RECORDS SUMMARY | 2024-11-22 12:51 | XMS_ITS | Encounter Summary ---
Author Organization [facility] Address [address] [place] [address] Care Team Providers Care Seed Potato Arranger Name Role Phone Josué Del Valle MD PhD Unavailable [phone] Kirt Lindsay DO Primary Care Provider [phone] Cal Carranza DO Unavailable [phone] Halie Khan MD Unavailable [phone] Wilfred Kinsey MD Unavailable Encounter Details Date Type Department Care Team (Late st Contact Info) Description 04/06/2024 TCC Initial Outreach [facility] [address] [place] [address] Vijaya Valencia, RN Social History Tobacco Use Types Packs/Day Years Used Date Smoking Tobacco: Some Days Cigarettes 0.5 40 Started: 1984 Smokeless Tobacco: Never Comments:pt states tried to quit [facility] Utilities Answer Date Recorded In the past [...] How often do you attend yarsanism or taoist serv ices? Never 03/30/2024 Do you belong [...] in a detention (including now)? No 03/30/2024 Personal Safety Answer Date Recorded Have you ever been in or are you currently in a harmful physical or emotional relationship or is someone making you feel afraid or unsafe? 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 No answer. Voice message left with TCC contact asking or return call.If patient returns call or on next outreach, please address the following: Per AVS: Follow up with Kirt Lindsay DO Specialty: Internal Medicine Follow up with established provider: 1 week Kirt Lindsay DO [facility] [address] [place] [address] touch up worker these medications from [id number] - [place], [place] - [address] AT SEC OF [...] on course of IV cefazolin presenting to [facility] with complaints of shortness of breath. CTA [...] on filedocumented in this encounter Care Teams Seed Potato Arranger Relationship Specialty Start Date End Date Kirt Lindsay DO PCP - General Internal Medicine 02/02/21 Josué Del Valle MD PhD Medical Oncologist/Aircraft Manager Medical Oncology 08/26/19 Cal Carranza DO [address] [address] Hospital Medical Biller Internal Medicine 06/12/23 Halie Khan MD [address] [address] Microsoft Bi Consultant Critical Care Med 06/12/23 Wilfred Kinsey MD [address] [address] Consulting Physician Gastroenterology 03/02/24 documented as of this encounter
--- OUTSIDE RECORDS SUMMARY | 2024-11-22 12:51 | XMS_ITS | Encounter Summary ---
Author Organization [facility] Address [address] [place] [address] Care Team Providers Care Health Spa Manager Name Role Phone Josué Del Valle MD PhD Unavailable [phone] Kirt Lindsay DO Primary Care Provider [phone] Cal Carranza DO Unavailable [phone] Halie Khan MD Unavailable [phone] Wilfred Kinsey MD Unavailable Encounter Details Date Type Department Care Team (Late st Contact Info) Description 04/14/2024 TCC Subsequent Outreach [facility] [address] [place] [address] Vijaya Valencia, RN Social History Tobacco Use Types Packs/Day Years Used Date Smoking Tobacco: Some Days Cigarettes 0.5 40 Started: 1984 Smokeless Tobacco: Never Comments:pt states tried to quit [facility] Utilities Answer Date [...] week 03/30/2024 How often do you attend zoroastrianism or jainism serv ices? 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 He states he is doing great. He has his medications and appointments. No future appointments. documented in this encounter Plan of Treatment Not on file documented as of this encounter Visit Diagnoses Not on filedocumented in this encounter Care Teams Health Spa Manager Relationship Specialty Start Date End Date Kirt Lindsay DO PCP - General Internal Medicine 02/02/21 Josué Del Valle MD PhD Medical Oncologist/Floor Sweeper Medical Oncology 08/26/19 Cal Carranza DO [address] [address] Channel Specialist Internal Medicine 06/12/23 Halie Khan MD [address] [address] Bacteriologist Medical Critical Care Med 06/12/23 Wilfred Kinsey MD [address] [facility] [place] [address] Consulting Physician Gastroenterology 03/02/24 documented as of this encounter
--- OUTSIDE RECORDS SUMMARY | 2024-11-22 12:51 | XMS_ITS | Encounter Summary ---
Author Organization [facility] Healthcare Address [address] [place] [address] Care Team Providers Care Senior Wealth Advisor Name Role Phone Josué Del Valle MD PhD Unavailable [phone] Kirt Lindsay DO Primary Care Provider [phone] Cal Carranza DO Unavailable [phone] Halie Khan MD Unavailable [phone] Wilfred Kinsey MD Unavailable Encounter Details Date Type Department Care Team (Late st Contact Info) Description 06/11/2024 1:37 PM CDT - 06/12/2024 1:04 PM CDT Emergency [facility] Emergency Department [address] [place] [id number] Discharge Disposition: ED Dismiss - Never Arrived Social History Tobacco Use Types Packs/Day Years Used Date Smoking Tobacco: Some Days Cigarettes 0.5 40 Started: 1985 Smokeless Tobacco: Never Comments:pt states tried to quit [facility] Utilities Answer Date Recorded In the [...] week 03/30/2024 How often do you attend nondenominational or lutheran serv ices? Never 03/30/2024 Do you belong [...] a nursing home (including now)? No 03/30/2024 Personal Safety Answer Date Recorded Have you ever been in or are you currently in a harmful physical or emotional relationship or is someone making you feel afraid or unsafe? Denies 03/27/2024 Sex and Gender Information Value Date Recorded Sex Assigned at Not on file Legal Sex Male 10:48 AM SKIP LOCATOR Gender Identity Not on file Sexual Orientation [...] flash glucose scanning reader (FreeStyle Evaristo 2 Jackson) [facility] Use to test blood glucose continuously 1 [...] insulin ([facility]),Dshvy-wiszuz-zveh disease ([facility]),H/O allogeneic bone marrow transplant ([facility]),Pure hypercholesterolemia Take 1 tablet (40 mg total) by mouth daily 30 tablet 6 01/15/20 024 diphenhydrAMINE-acetamin ophen (TYLENOL PM) 25-500 mg tablet Take 2 tablets by mouth nightly as needed for sleep 024 rnlhykdxnpx-kwgbdxxcw-cy lanter (Trelegy Ellipta) 200-62.5-25 mcg inhaler Inhale 1 puff daily 024 gabapentin (NEURONTIN) 300 mg capsuleIndications:Acute myeloblastic leukemia, in remission ([facility]) TAKE ONE CAPSULE BY MOUTH FOUR TIMES DAILY @ [id number] 120 capsule 11 05/13/20 24 025 insulin [...] for pneumonia and had CT done at [facility] on 05/28 and has large mass to R upper lobe and reports productive cough. Romana De La Fuente RN documented in this encounter Plan of Treatment Not on file documented as of this encounter Visit Diagnoses Not on filedocumented in this encounter Care Teams Senior Wealth Advisor Relationship Specialty Start Date End Date Kirt Lindsay DO PCP - General Internal Medicine 02/02/21 Josué Del Valle MD PhD Medical Oncologist/International Student Advisor Medical Oncology 08/26/19 Cal Carranza DO [address] [address] Solutions Sales Consultant Internal Medicine 06/12/23 Halie Khan MD [address] [address] Assistant Professor Of Religion Critical Care Med 06/12/23 Wilfred Kinsey MD [address] [address] Consulting Physician Gastroenterology 03/02/24 documented as of this encounter
--- OUTSIDE RECORDS SUMMARY | 2024-11-22 12:51 | XMS_ITS | Encounter Summary ---
Author Organization [facility] Healthcare Address [address] [place] [address] Care Team Providers Care Commercial Loan Manager Name Role Phone Josué Del Valel MD PhD Unavailable [phone] Kirt Lindsay DO Primary Care Provider [phone] Cal Carranza DO Unavailable [phone] Halie Khan MD Unavailable [phone] Wilfred Kinsey MD Unavailable Encounter Details Date Type Department Care Team (Late st Contact Info) Description 04/14/2024 TCC Subsequent Outreach [facility] [address] [place] [address] Steve Tobin, RN Social History Tobacco Use [...] week 03/30/2024 How often do you attend presybeterian or amish serv ices? 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 [...] of discharge TCC Outreach: Called at the [facility] [place] and for a return call. Review of medications: joint supervisor these medications from [id number] - [place] - [address] No future appointments. documented in this encounter Plan of Treatment Not on file documented as of this encounter Visit Diagnoses Not on filedocumented in this encounter Care Teams Commercial Loan Manager Relationship Specialty Start Date End Date Kirt Lindasy DO PCP - General Internal Medicine 02/02/21 Josué Del Valle MD PhD Medical Oncologist/Clinical Psychologist Licensed Medical Oncology 08/26/19 Cal Carranza DO [address] [place] [address] Machine Mover Internal Medicine 06/12/23 Halie Khan MD [address] [place] [address] Svp Operations Critical Care Med 06/12/23 Wilfred Kinsey MD [address] [address] Consulting Physician Gastroenterology 03/02/24 documented as of this encounter
--- OUTSIDE RECORDS SUMMARY | 2024-11-22 12:51 | XMS_ITS | Encounter Summary ---
Author Organization [facility] Address [address] [place] [address] Phone Care Team Providers Care Writing Manager Name Role Phone Josué Del Valle MD PhD Unavailable Kirt Lindsay DO Primary Care Provider [phone] Cal Carranza DO Unavailable [phone] Halie Khan MD Unavailable [phone] Wilfred Kinsey MD Unavailable Encounter Details Date Type Department Care Team (Late st Contact Info) Description 06/22/[address] [facility] Bone Marrow Transplant [address] [facility] Advanced Medicine 7th Floor, [place] [address] Josué Del Valle MD PhD [address] DIV IM BONE MARROW TRANSPLANT, [address] [place] [address] AML s/p Allo SCT in [...] How often do you attend baptism or mormonism serv ices? 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 Gender Identity Not on file Sexual Orientation [...] documented as of this encounter Care Teams Writing Manager Relationship Specialty Start Date End Date Kirt Lindsay DO PCP - General Internal Medicine 02/02/21 Josué Del Valle MD PhD Medical Oncologist/Special Forces Communications Sergeant Medical Oncology 08/26/19 Cal Carranza DO [address] [place] [address] Dragline Oiler Internal Medicine 06/12/23 Halie Khan MD [address] [place] [address] Vehicle Delivery Worker Critical Care Med 06/12/23 Wilfred Kinsey MD [address] [address] Consulting Physician Gastroenterology 03/02/24 documented as of this encounter
--- OUTSIDE RECORDS SUMMARY | 2024-11-22 12:52 | XMS_ITS | Encounter Summary ---
Author Organization [facility] Address [address] [place] [address] Phone Care Team Providers Care Oil Rig Driller Name Role Phone Josué Del Valle MD PhD Unavailable Kirt Lindsay DO Primary Care Provider [phone] Cal Carranza DO Unavailable [phone] Halie Khan MD Unavailable Wilfred Kinsey MD Unavailable Encounter Details Date Type Department Care Team (Late st Contact Info) Description 04/01/2024 Telephone [facility] Bone Marrow Transplant [address] [facility] Advanced Medicine 7th Floor, [place] [address] Josué Del Valle MD PhD [address] DIV IM BONE MARROW TRANSPLANT, [address] [place] [address] Social History Tobacco Use Types Packs/Day Years Used Date Smoking Tobacco: Some Days Cigarettes 0.5 40 Started: 1985 Smokeless Tobacco: Never Comments:pt states tried to quit [facility] Utilities Answer Date Recorded In the [...] week 03/30/2024 How often do you attend yazidism or voodoo serv ices? 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 * Telephone Encounter - Marisa Mcdermott - 04/01/2024 12:10 PM CDT [facility] ([phone]) calling for refill for Levofloxacin documented in this encounter Plan of Treatment Not on file documented as of this encounter Visit Diagnoses Not on filedocumented in this encounter Care Teams Oil Rig Driller Relationship Specialty Start Date End Date Kirt Lindsay DO PCP - General Internal Medicine 02/02/21 Josué Del Valle MD PhD Medical Oncologist/Software Security Architect Medical Oncology 08/26/19 Cal Carranza DO [address] [place] [address] Christmas Tree Farm Worker Internal Medicine 06/12/23 Halie Khan MD [address] [facility] [address] [place] [address] Grounding Engineer Critical Care Med 06/12/23 Wilfred Kinsey MD [address] [facility] [address] [place] [address] Consulting Physician Gastroenterology 03/02/24 documented as of this encounter
--- OUTSIDE RECORDS SUMMARY | 2024-11-22 12:52 | XMS_ITS | Encounter Summary ---
Author Organization [facility] Address [address] [place] [address] Care Team Providers Care Clinical Informatics Spec Name Role Phone Josué Del Valle MD PhD Unavailable [phone] Kirt Lindsay DO Primary Care Provider [phone] Cal Carranza DO Unavailable [phone] Halie Khan MD Unavailable [phone] Wilfred Kinsey MD Unavailable Encounter Details Date Type Department Care Team (Late st Contact Info) Description 03/30/2024 TCC Initial Eligibility Review [facility] [address] [place] [address] Regi Lagos, SALARY AND WAGE ADMINISTRATOR [address] [place] [address] Social History Tobacco Use Types Packs/Day Years [...] week 03/30/2024 How often do you attend mandaen or christian serv ices? 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 Gender Identity Not on file Sexual Orientation Not on file documented as of this encounter Plan of Treatment Not on file documented as of this encounter Visit Diagnoses Not on filedocumented in this encounter Care Teams Clinical Informatics Spec Relationship Specialty Start Date End Date Kirt Lindsay DO PCP - General Internal Medicine 02/02/21 Josué Del Valle MD PhD Medical Oncologist/Community Outreach Worker Medical Oncology 08/26/19 Cal Carranza DO [address] [address] Apprentice Pattern Maker Internal Medicine 06/12/23 Halie Khan MD [address] [id number] Development Technician Critical Care Med 06/12/23 Wilfred Kinsey MD [address] [address] Consulting Physician Gastroenterology 03/02/24 documented as of this encounter
--- OUTSIDE RECORDS SUMMARY | 2024-11-22 12:52 | XMS_ITS | Encounter Summary ---
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 (nih.gov) From the ICD-10-CM Coding Guidelines, use of terms such as likely, suspected, possible, or probable(associated with a specific diagnosis that is being evaluated, monitored, or treated as if it exists) are acceptable and can be coded in the inpatient setting when documented at the time of discharge. This documentation will become part of the patient???s medical record. Sincerely, Jimmy Nuñezchi [facility] Health Information Management * Provider Query - [...] fat ? muscle ? fluid/edema 6: Reduced Floor Scrubber Strength n/a Measurably reduced per device standards [...] manage if needed. Abraham resume patient for fdc. Extension remains in place to SL PICC line. Arleen/Milana Lagos RN Medical Malpractice Paralegal, [facility] home care [phone] * Provider Query - Yrn Suarez MD [...] Saturday. For after hour emergencies please call [phone]. Any referrals received after 4pm will be processed the next day. For discharge planning purposes please keep in mind that referrals can take 24 or more hours to process. Thank You Arleen/Milana Lagos RN Medical Malpractice Paralegal, [facility] home care [phone] * ECIN Note - Dora Linn RN - 03/31/2024 12:37 PM CDT Patient Information: Patient Header Patient Information Patient Name: BRI JONES Date of 1965 (58 years) Sex: Male Phone Numbers: Home: , Meds and Admin Active Only All Meds/Most Recent Administrations sodium chloride 0.9% bolus 1,000 mL [[id number]] Ordering Provider: Damian Snow MD Status: Completed [...] Performed by: Sherita Rabago RN Scanned Package: 4906-9425-54 vancomycin 1500 mg/250 mL in sodium chloride 0.9% (premix) 1,500 mg [[id number]] Ordering Provider: Damian Snow MD Status: Completed [...] RN Comments: medication not compatible Scanned Package: 8774-3620-52, 9531-7504-96 cefepime (MAXIPIME) 2,000 mg in sodium chloride 0.9% 100 mL IVPB [[id number]] Ordering Provider: Damian Snow MD Status: Completed [...] Performed by: Sherita Rabago RN Scanned Package: [address]-4, 0327-2087-80 azithromycin (ZITHROMAX) 500 mg/250 mL in sodium chloride 0.9% (premix) 500 mg [[id number]] Ordering Provider: Damian Snow MD Status: Completed [...] Performed by: Sherita Rabago RN Scanned Package: 25898-620-65, 4534-2708-49 albuterol 2.5 mg/0.5 mL nebulizer solution 10 mg [[id number]] Ordering Provider: Damian Snow MD Status: Completed (Past End Date/Time) Ordered On: 03/27/242138 Starts/Ends: 03/27/242139 - 03/27/242202 Ordered Dose (Remaining/Total): 10 mg (0/1) Route: nebulization Frequency: Once Ordered Rate/Order Duration: -- / -- Timestamps Action Dose Route Other Information 03/27/242202 Given 10 mg nebulization Performed by: Cha Burch, BRANDEN Scanned Package: 8902-9400-45, 3415-6863-06, 6430-9326-51, 4882-9746-61 ipratropium (ATROVENT) 0.02 % nebulizer solution 0.5 mg [[id number]] Ordering Provider: Damian Snow MD Status: Completed (Past End Date/Time) Ordered On: 03/27/242138 Starts/Ends: 03/27/24213903/27/242202 Ordered Dose (Remaining/Total): 0.5 mg (0/1) Route: nebulization Frequency: Once Ordered Rate/Order Duration: -- / -- Timestamps Action Dose Route Other Information 03/27/242202 Given 0.5 mg nebulization Performed by: Cha Burch, TOOL CRIB SUPERVISOR Scanned Package: 1321-4529-47 predniSONE (DELTASONE) tablet 50 mg [[id number]] Ordering Provider: Damian Snow MD Status: Completed (Past End Date/Time) Ordered On: 03/27/242138 Starts/Ends: 03/27/242139 - 03/27/242299 Ordered Dose (Remaining/Total): 50 mg (0/1) Route: oral Frequency: Once Ordered Rate/Order Duration: -- / -- Timestamps Action Dose Route Other Information 03/27/242299 Given 50 mg oral Performed by: Sherita Rabago RN Comments: breathing treatment Scanned Package: 2379-0583-22, 67952-798-97, 87300-996-95 sodium chloride 0.9% bolus 1,000 mL [[id number]] Ordering Provider: Damian Snow MD Status: Completed [...] Performed by: Sherita Rabago RN Scanned Package: 8156-9250-02 sodium chloride 0.9 % nebulizer solution - ADS Override Pull [[id number]] Status: Dispensed (Past End Date/Time) Ordered On: 03/27/242149 Starts/Ends: 03/27/242149 - 03/28/24951 Ordered Dose (Remaining/Total): -- (11/18) Route: -- Frequency: -- Ordered Rate/Order Duration: -- / -- Admin Instructions: Created by cabinet override Note to pharmacy: Created by cabinet override (No admins scheduled or recorded for this medication) ioversoL (OPTIRAY 350) syringe 100 mL [[id number]] Ordering Provider: Damian Snow MD Status: Completed [...] Arnold, RT Comments: PE r/o Scanned Package: 0141-6102-78 sodium chloride 0.9% bolus 100 mL [[id number]] Ordering Provider: Damian Snow MD Status: Completed [...] Performed by: Aleah Arnold, RT Scanned Package: 8957-9400-08 acyclovir (ZOVIRAX) capsule 400 mg [[id number]] Ordering Provider: Ady Neal MD Status: Dispensed Ordered On: 03/28/24242 Start: 03/28/24 06 Ordered Dose (Remaining/Total): 400 mg (--/--) Route: oral Frequency: Every 8 hours scheduled Ordered Rate/Order Duration: -- / -- Timestamps Action Dose Route Other Information 03/31/24 0521 Given 400 mg oral Performed by: Nadia Mancia RN Scanned Package: 7625-1504-00, 8898-9889-69 atorvastatin (LIPITOR) tablet 40 mg [[id number]] Ordering Provider: Ady Neal MD Status: Dispensed Ordered On: 03/28/24 0243 Start: 03/28/24 0900 Ordered Dose (Remaining/Total): 40 mg (--/--) Route: oral Frequency: Daily Ordered Rate/Order Duration: -- / -- Timestamps Action Dose Route Other Information 03/31/24 0829 Given 40 mg oral Performed by: Jenifer Alcantar RN Scanned Package: 52288-450-94 cholecalciferol (VITAMIN D-3) tablet 2,000 Units [[id number]] Ordering Provider: Ady Neal MD Status: Dispensed Ordered On: 03/28/24242 Start: 03/28/24 0900 Ordered Dose (Remaining/Total): 2,000 Units (--/--) Route: oral Frequency: Every morning Ordered Rate/Order Duration: -- / -- Admin Instructions: Each tablet contains 1,000 units (25 mcg) of cholecalciferol. Timestamps Action Dose Route Other Information 03/31/24828 Given 2,000 Units oral Performed by: Jenifer Alcantar RN Scanned Package: [id number], [id number] cyanocobalamin (Vitamin B-12) tablet 1,000 mcg [[id number]] Ordering Provider: Ady Neal MD Status: Dispensed Ordered On: 03/28/24242 Start: 03/28/24899 Ordered Dose (Remaining/Total): 1,000 mcg (--/--) Route: oral Frequency: Every morning Ordered Rate/Order Duration: -- / -- Timestamps Action Dose Route Other Information 03/31/24828 Given 1,000 mcg oral Performed by: Jenifer Alcantar RN Scanned Package: [id number], [id number] gabapentin (NEURONTIN) capsule 300 mg [[id number]] Ordering Provider: Ady Neal MD Status: Dispensed Ordered On: 03/28/24242 Start: 03/28/24 08 Ordered Dose (Remaining/Total): 300 mg (--/--) Route: oral Frequency: 4 times daily Ordered Rate/Order Duration: -- / -- Timestamps Action Dose Route Other Information 03/31/24 120 Given 300 mg oral Performed by: Jenifer Alcantar RN Scanned Package: 34345-535-39 guaiFENesin (ROBITUSSIN) 20 mg/mL oral liquid 100 mg [[id number]] Ordering Provider: Ady Neal MD Status: Dispensed Ordered On: 03/28/24242 Start: 03/28/24240 Ordered Dose (Remaining/Total): 100 mg (--/--) Route: oral Frequency: 3 times daily PRN Ordered Rate/Order Duration: -- / -- Timestamps Action Dose Route Other Information 03/30/24 0352 Given 100 mg oral Performed by: Ashley Rios RN Scanned Package: 1027-7915-26 guaiFENesin ER (MUCINEX) extended release tablet 600 mg [[id number]] Ordering Provider: Ady Neal MD Status: Dispensed Ordered On: 03/28/24242 Start: 03/28/24899 Ordered Dose (Remaining/Total): 600 mg (--/--) Route: oral Frequency: 2 times daily Ordered Rate/Order Duration: -- / -- Admin Instructions: Do not crush, chew, cut, dissolve, open or otherwise manipulate tablet/capsule. Timestamps Action Dose Route Other Information 03/31/24827 Given 600 mg oral Performed by: Jenifer Alcantar RN Scanned Package: 46088-914-[address] (PROTONIX) extended release tablet 40 mg [[id number]] Ordering Provider: Ady Neal MD Status: Dispensed Ordered On: 03/28/24242 Start: 03/28/24899 Ordered Dose (Remaining/Total): 40 mg (--/--) Route: oral Frequency: 2 times daily Ordered Rate/Order Duration: -- / -- Admin Instructions: Do not crush, chew, cut, dissolve, open or otherwise manipulate tablet/capsule. Timestamps Action Dose Route Other Information 03/31/24828 Given 40 mg oral Performed by: Jenifer Alcantar RN Scanned Package: 92213-998-09 rivaroxaban (XARELTO) tablet 20 mg [[id number]] Ordering Provider: Ady Neal MD Status: Dispensed [...] Performed by: Jenifer Alcantar RN Scanned Package: 12386-221-09 sucralfate (CARAFATE) 100 mg/mL oral suspension 1 g [[id number]] Ordering Provider: Ady Neal MD Status: Dispensed Ordered On: 03/28/24242 Start: 03/28/24 08 Ordered Dose (Remaining/Total): 1 g (--/--) Route: oral Frequency: 4 times daily (with meals and nightly) Ordered Rate/Order Duration: -- / -- Timestamps Action Dose Route Other Information 03/31/241201 Given 1 g oral Performed by: Jenifer Alcantar RN Scanned Package: 54959-532-05 voriCONAZOLE (VFEND) tablet 200 mg [[id number]] Ordering Provider: Ady Neal MD Status: Dispensed Ordered On: 03/28/24242 Start: 03/28/24899 Ordered Dose (Remaining/Total): 200 mg (--/--) Route: oral Frequency: 2 times daily Ordered Rate/Order Duration: -- / -- Timestamps Action Dose Route Other Information 03/31/24827 Given 200 mg oral Performed by: Jenifer Alcantar RN Scanned Package: 88173-921-57, 65440-431-19 acetaminophen (TYLENOL) tablet 650 mg [[id number]] Ordering Provider: Ady Neal MD Status: Verified Ordered On: 03/28/24242 Start: 03/28/24241 Ordered Dose (Remaining/Total): 650 mg (--/--) Route: oral Frequency: Every 4 hours PRN Ordered Rate/Order Duration: -- / -- Admin Instructions: Administer if patient can swallow tablets. (No admins scheduled or recorded for this medication) acetaminophen (TYLENOL) 32 mg/mL oral liquid 650 mg [[id number]] Ordering Provider: Ady Neal MD Status: Verified Ordered On: 03/28/24242 Start: 03/28/24241 Ordered Dose (Remaining/Total): 650 mg (--/--) Route: feeding tube Frequency: Every 4 hours PRN Ordered Rate/Order Duration: -- / -- Admin Instructions: Administer if patient receiving meds per tube. (No admins scheduled or recorded for this medication) acetaminophen (TYLENOL) suppository 650 mg [[id number]] Ordering Provider: Ady Neal MD Status: Verified Ordered On: 03/28/24242 Start: 03/28/24241 Ordered Dose (Remaining/Total): 650 mg (--/--) Route: rectal Frequency: Every 4 hours PRN Ordered Rate/Order Duration: -- / -- Admin Instructions: Administer if patient cannot tolerate enteral route. (No admins scheduled or recorded for this medication) ramelteon (ROZEREM) tablet 8 mg [[id number]] Ordering Provider: Ady Neal MD Status: Dispensed Ordered On: 03/28/24242 Start: 03/28/24241 Ordered Dose (Remaining/Total): 8 mg (--/--) Route: oral Frequency: Nightly PRN Ordered Rate/Order Duration: -- / -- Timestamps Action Dose Route Other Information 03/29/242027 Given 8 mg oral Performed by: Ashley Rios RN Scanned Package: 03485-002-36 ondansetron ODT (ZOFRAN-ODT) disintegrating tablet 4 mg [[id number]] Ordering Provider: Ady Neal MD Status: Verified Ordered On: 03/28/24242 Start: 03/28/24241 Ordered Dose (Remaining/Total): 4 mg (--/--) Route: oral Frequency: Every 6 hours PRN Ordered Rate/Order Duration: -- / -- (No admins scheduled or recorded for this medication) ondansetron (ZOFRAN) injection 4 mg [[id number]] Ordering Provider: Ady Neal MD Status: Verified Ordered On: 03/28/24242 Start: 03/28/24241 Ordered Dose (Remaining/Total): 4 mg (--/--) Route: intravenous Frequency: Every 6 hours PRN Ordered Rate/Order Duration: -- / 2 Minutes (No admins scheduled or recorded for this medication) polyethylene glycol (MIRALAX) packet 17 g [[id number]] Ordering Provider: Ady Neal MD Status: Verified Ordered On: 03/28/24242 Start: 03/28/24241 Ordered Dose (Remaining/Total): 17 g (--/--) Route: oral Frequency: Daily PRN Ordered Rate/Order Duration: -- / -- (No admins scheduled or recorded for this medication) bisacodyl EC (DULCOLAX EC) tablet 10 mg [[id number]] Ordering Provider: Ady Neal MD Status: Verified Ordered On: 03/28/24242 Start: 03/28/24241 Ordered Dose (Remaining/Total): 10 mg (--/--) Route: oral Frequency: Daily PRN Ordered Rate/Order Duration: -- / -- Admin Instructions: Administer if tolerating PO. Do not crush, chew, cut, dissolve, open or otherwise manipulate tablet/capsule. (No admins scheduled or recorded for this medication) bisacodyL (DULCOLAX) suppository 10 mg [[id number]] Ordering Provider: Ady Neal MD Status: Verified Ordered On: 03/28/24242 Start: 03/28/24241 Ordered Dose (Remaining/Total): 10 mg (--/--) Route: rectal Frequency: Daily PRN Ordered Rate/Order Duration: -- / -- Admin Instructions: Administer if not tolerating PO. (No admins scheduled or recorded for this medication) albuterol HFA (PROVENTIL HFA,VENTOLIN HFA,PROAIR HFA) 90 mcg/actuation inhaler 2 puff [[id number]] Ordering Provider: Ady Neal MD Status: Verified Ordered On: 03/28/24300 Start: 03/28/24300 Ordered Dose (Remaining/Total): 2 puff (--/--) Route: inhalation Frequency: Every 6 hours PRN (service correspondent) Ordered Rate/Order Duration: -- / -- Timestamps Action Dose Route Other Information 03/29/24 0855 Given 2 puff inhalation Performed by: Zita Vázquez, BRANDEN Scanned Package: 46246-352-42 cefepime (MAXIPIME) 1,000 mg in sodium chloride 0.9% 100 mL IVPB [[id number]] Ordering Provider: Ady Neal MD Status: Dispensed [...] Performed by: Jenifer Alcantar RN Scanned Package: [address]-7, 7860-3587-72 diphenhydrAMINE (BENADRYL) tab/cap 50 mg [[id number]] Ordering Provider: Ady Neal MD Status: Verified [...] this medication) acetaminophen (TYLENOL) tablet 975 mg [[id number]] Ordering Provider: Ady Neal MD Status: Verified Ordered On: 03/28/24319 Start: 03/28/24318 Ordered Dose (Remaining/Total): 975 mg (--/--) Route: oral Frequency: Nightly PRN Ordered Rate/Order Duration: -- / -- Admin Instructions: Formulary sub for Tylenol PM (No admins scheduled or recorded for this medication) benzonatate (TESSALON) capsule 100 mg [[id number]] Ordering Provider: Ady Neal MD Status: Dispensed Ordered On: 03/28/24611 Start: 03/28/24611 Ordered Dose (Remaining/Total): 100 mg (--/--) Route: oral Frequency: 3 times daily PRN Ordered Rate/Order Duration: -- / -- Admin Instructions: Do not crush, chew, cut, dissolve, open or otherwise manipulate tablet/capsule. Timestamps Action Dose Route Other Information 03/29/242027 Given 100 mg oral Performed by: Ashley Rios RN Scanned Package: 41226-077-52 dextrose (GLUTOSE) 40 % gel 15 g [[id number]] Ordering Provider: Jhonny Cordova MD Status: Verified [...] MD for each episode of hypoglycemia. DIRECTOR OF INDUSTRIAL RELATIONS STATES GLUTOSE-15 CONTAINS GLUCOSE 40% W/W (50% W/V) (No admins scheduled or recorded for this medication) dextrose (D10W) 10% bolus 250 mL [[id number]] Ordering Provider: Jhonny Cordova MD Status: Verified [...] hour post treatment. If BG is less yzqc172 mg/dL, repeat Q15 minute BG checks and treatment. Call MD for each episode of hypoglycemia. (No admins scheduled or recorded for this medication) glucagon injection 1 mg [[id number]] Ordering Provider: Jhonny Cordova MD Status: Verified [...] in sodium chloride 0.9% (premix) 500 mg [[id number]] Ordering Provider: Jhonny Cordova MD Status: Completed [...] Performed by: Merry Armas RN Scanned Package: 61215-131-64, 4581-7382-64 loperamide (IMODIUM) capsule 2 mg [[id number]] Ordering Provider: Jhonny Cordova MD Status: Dispensed Ordered On: 03/28/241403 Start: 03/28/241403 Ordered Dose (Remaining/Total): 2 mg (--/--) Route: oral Frequency: 4 times daily PRN Ordered Rate/Order Duration: -- / -- Admin Instructions: Maximum recommended dose 16 mg/day Timestamps Action Dose Route Other Information 03/29/242036 Given 2 mg oral Performed by: Ashley Rios RN Scanned Package: 29515-598-99 nicotine (NICODERM CQ) 21 mg patch 24 hour 1 patch [[id number]] Ordering Provider: Rukhsana Collins NP Status: Dispensed [...] Performed by: Nadia Mancia RN Scanned Package: 52043-56144 insulin lispro (HumaLOG, ADMELOG) 100 unit/mL injection 3 Units [[id number]] Ordering Provider: Rukhsana Collins NP Status: Completed (Past End Date/Time) Ordered On: 03/29/2434 Starts/Ends: 03/29/24 0115 - 03/29/24 0039 Ordered Dose (Remaining/Total): 3 Units (0/1) Route: subcutaneous Frequency: Once Ordered Rate/Order Duration: -- / -- Timestamps Action Dose Route / Site Other Information 03/29/24 0039 Given 3 Units subcutaneous Left Lower Abdomen Performed by: Ashley Rios RN Scanned Package: 4484-3119-26 insulin lispro (HumaLOG, ADMELOG) 100 unit/mL injection 3 Units [[id number]] Ordering Provider: Rukhsana Collins NP Status: Completed (Past End Date/Time) Ordered On: 03/29/24 0304 Starts/Ends: 03/29/24 0345 - 03/29/24 0311 Ordered Dose (Remaining/Total): 3 Units (0/1) Route: subcutaneous Frequency: Once Ordered Rate/Order Duration: -- / -- Timestamps Action Dose Route / Site Other Information 03/29/24 0311 Given 3 Units subcutaneous Right Lower Abdomen Performed by: Ashley Rios RN Scanned Package: 5329-9737-56 hydrOXYzine (ATARAX) tablet 25 mg [[id number]] Ordering Provider: Rukhsana Collins NP Status: Completed (Past End Date/Time) Ordered On: 03/29/24344 Starts/Ends: 03/29/24 0430 - 03/29/24348 Ordered Dose (Remaining/Total): 25 mg (0/1) Route: oral Frequency: Once Ordered Rate/Order Duration: -- / -- Timestamps Action Dose Route Other Information 03/29/24348 Given 25 mg oral Performed by: Ashley Rios RN Scanned Package: 3630-4150-64 potassium chloride ER (KLOR-CON) extended release tablet 40 mEq [[id number]] Ordering Provider: Rukhsana Collins NP Status: Completed [...] Performed by: Ashley Rios RN Scanned Package: 7236-0950-44, 1233-3044-69 potassium chloride ER (KLOR-CON) extended release tablet 20 mEq [[id number]] Ordering Provider: Rukhsana Collins NP Status: Completed [...] Performed by: Merry Armas RN Scanned Package: 4024-8894-15 magnesium sulfate 2 g/50 mL in water (premix) 2 g [[id number]] Ordering Provider: Rukhsana Collins NP Status: Completed (Past End Date/Time) Ordered On: 03/29/24 0606 Starts/Ends: 03/29/24 0645 - 03/29/24 0712 Ordered Dose (Remaining/Total): 2 g (0/1) Route: intravenous Frequency: Once Ordered Rate/Order Duration: -- / 60 Minutes Timestamps Action Dose / Duration Route Other Information 03/29/24 0612 New Bag 2 g 60 Minutes intravenous Performed by: Ashley Rios RN Scanned Package: 24760-478-90 ipratropium-albuteroL (DUO-NEB) 0.5-2.5 mg/3 mL nebulizer solution 3 mL [[id number]] Ordering Provider: Jhonny Cordova MD Status: Dispensed Ordered On: 03/29/24 1014 Start: 03/29/24 1045 Ordered Dose (Remaining/Total): 3 mL (--/--) Route: nebulization Frequency: Every 6 hours while awake (service correspondent) Ordered Rate/Order Duration: -- / -- Timestamps Action Dose Route Other Information 03/31/24 0713 Given 3 mL nebulization Performed by: Elle Martin, BRANDEN Scanned Package: 0221-2300-28 morphine injection 2 mg [[id number]] Ordering Provider: Jhonny Cordova MD Status: Dispensed [...] Performed by: Ashley Rios RN Scanned Package: 1871-6361-17 insulin lispro (HumaLOG, ADMELOG) 100 unit/mL injection 0-5 Units [[id number]] Ordering Provider: Jhonny Cordova MD Status: Dispensed [...] Performed by: Jenifer Alcantar RN Scanned Package: 1517-0647-51 insulin lispro (HumaLOG, ADMELOG) 100 unit/mL injection 0-4 Units [[id number]] Ordering Provider: Jhonny Cordova MD Status: Dispensed [...] Performed by: Nadia Mancia RN Scanned Package: 3149-6104-44 insulin lispro (HumaLOG, ADMELOG) 100 unit/mL injection 2 Units [[id number]] Ordering Provider: Rukhsana Collins NP Status: Completed (Past End Date/Time) Ordered On: 03/29/242017 Starts/Ends: 03/29/242099 - 03/29/242027 Ordered Dose (Remaining/Total): 2 Units (0/1) Route: subcutaneous Frequency: Once Ordered Rate/Order Duration: -- / -- Timestamps Action Dose Route / Site Other Information 03/29/242027 Given 2 Units subcutaneous Left Lower Abdomen Performed by: Ashley Rios RN Scanned Package: 5722-6908-57 insulin lispro (HumaLOG, ADMELOG) 100 unit/mL injection 8 Units [[id number]] Ordering Provider: Ady Devries NP Status: Completed (Past End Date/Time) Ordered On: 03/29/242239 Starts/Ends: 03/29/242314 - 03/29/242245 Ordered Dose (Remaining/Total): 8 Units (0/1) Route: subcutaneous Frequency: Once Ordered Rate/Order Duration: -- / -- Timestamps Action Dose Route / Site Other Information 03/29/242245 Given 8 Units subcutaneous Right Lower Abdomen Performed by: Ashley Rios RN Scanned Package: 9423-9488-14 Carrier Fluids for Secondary Infusion - 0.9% Sodium Chloride [[id number]] Ordering Provider: Jhonny Cordova MD Status: Dispensed [...] Performed by: Ashley Rios RN Scanned Package: 8057-7032-35 insulin lispro (HumaLOG, ADMELOG) 100 unit/mL injection 5 Units [[id number]] Ordering Provider: Jhonny Cordova MD Status: Dispensed [...] Performed by: Jenifer Alcantar RN Scanned Package: 3982-0141-18 insulin glargine (LANTUS, SEMGLEE) 100 unit/mL injection 3 Units [[id number]] Ordering Provider: Jhonny Cordova MD Status: Completed [...] Performed by: Ciara Rockwell RN Scanned Package: 3747-8143-17 insulin lispro (HumaLOG, ADMELOG) 100 unit/mL injection 2 Units [[id number]] Ordering Provider: Jhonny Cordova MD Status: Completed (Past End Date/Time) Ordered On: 03/30/24 1158 Starts/Ends: 03/30/24 1230 - 03/30/24 1201 Ordered Dose (Remaining/Total): 2 Units (0/1) Route: subcutaneous Frequency: Once Ordered Rate/Order Duration: -- / -- Timestamps Action Dose Route / Site Other Information 03/30/24 120 Given 2 Units subcutaneous Left Lower Abdomen Performed by: Ciara Rockwell RN Scanned Package: 5697-4244-34 mycophenolate mofetil (CELLCEPT) tablet 1,000 mg [[id number]] Ordering Provider: Jhonny Cordova MD Status: Dispensed [...] Performed by: Jenifer Alcantar RN Scanned Package: 12602-063-14, 71074-798-06 tacrolimus immediate-release capsule 0.5 mg [[id number]] Ordering Provider: Jhonny Cordova MD Status: Dispensed Ordered On: 03/30/24 1306 Start: 03/30/24 1345 Ordered Dose (Remaining/Total): 0.5 mg (--/--) Route: oral Frequency: Every other day Ordered Rate/Order Duration: -- / -- Admin Instructions: Avoid grapefruit juice Timestamps Action Dose Route Other Information 03/30/24 1442 Given 0.5 mg oral Performed by: Ciara Rockwell RN Scanned Package: [id number] predniSONE (DELTASONE) tablet 10 mg [[id number]] Ordering Provider: Jhonny Cordova MD Status: Dispensed Ordered On: 03/30/24 1409 Start: 03/31/24 0900 Ordered Dose (Remaining/Total): 10 mg (--/--) Route: oral Frequency: Daily Ordered Rate/Order Duration: -- / -- Timestamps Action Dose Route Other Information 03/31/24 0828 Given 10 mg oral Performed by: Jenifer Alcantar RN Scanned Package: [id number] insulin lispro (HumaLOG, ADMELOG) 100 unit/mL injection 3 Units [[id number]] Ordering Provider: Rukhsana Collins NP Status: Completed (Past End Date/Time) Ordered On: 03/31/24 0259 Starts/Ends: 03/31/24 0330 - 03/31/24 0305 Ordered Dose (Remaining/Total): 3 Units (0/1) Route: subcutaneous Frequency: Once Ordered Rate/Order Duration: -- / -- Timestamps Action Dose Route / Site Other Information 03/31/24 0305 Given 3 Units subcutaneous Left Upper Arm Performed by: Nadia Mancia RN Scanned Package: [id number] insulin glargine (LANTUS, SEMGLEE) 100 unit/mL injection 14 Units [[id number]] Ordering Provider: Yrn Suarez MD Status: Dispensed [...] Performed by: Jenifer Alcantar RN Scanned Package: [id number] , OT Eval and Treat Last Documented [...] recently treated for Pneumonia d/c home w/ [facility] Plan Includes: Pt to discharge home with support of room-mate, Lissy, who will transport pt at time of discharge. Pt already established with [facility], referral sent for re-acceptance, pending still. Primary Source of Transportation: Does the patient need discharge transport arranged?: No (Friend to transport) (03/30/24 1000) Health Insurance Coverage: [facility] Medicare Prescription Coverage: same Pharmacy: [id number] - [place] MD - [address] & [place] [id number] Primary Care Provider: Gama Lindsay, DO Prior to Admission: Functional Status: Independent with ADLs Primary Caregiver: Self Support System: Spouse/Significant Other Home Care Services: Yes Type of Home Care Services: Nurse visit Home care service name and phone number: [facility] Home Health Outpatient Services: No Durable Medical Equipment: Oxygen, Rollator Oxygen Detail: 3L [place], [place] Home Patient Living Arrangements: Friends Type of [...] a week How often do you attend voodoo or anglican services?: Never Do you belong to any clubs or organizations such as voodoo groups, unions, fraternal [...] 1208) Potential discharge needs include: Home Health: [facility] (03/30/24 1000) Behavioral Health Services: Behavioral Health [...] Collaboration with Patient, Provider, Direct Care Nurse, Medical Malpractice Paralegal, and other members of theHealth Care Team to assure needed interventions completed. 2. Return patient to optimal level of self-care post discharge. 3. Glass Inspector will follow for Discharge Planning - interventions [...] marrow transplant (stem cell transplant 2008), chronic mlbmw-ozyxga-jykm disease, type 2 diabetes mellitu chief complaint [...] the gallbladder. By: Maik Brar MD Time: 03/273 Comment: Paged the hospitalist x1 By: Maik [...] Maik Brar MD Time: 03/28 13 [facility] By: Maik Brar MD Time: 03/28 38 Comment: [facility] ist x 3 By: Maik Brar MD [...] BLOOD CULTURE STAT 03/27/2024 9:41 PM CDT [place] CRITICAL CARE ILL/INJURED PATIENT INIT 30-74 MIN [...] glucose (04/03/2024 11:18 AM CDT) Pathologist [facility] Glucose, POC 166 70 - 199 mg/dL Glucose comment 1 Use This Result [facility] Glucose comment 2 RN/MD Notified ZULEMA Blood 04/03/2024 11:1 8 AM CDT 04/03/2024 11:18 AM CDT Eric Menon MD LAB POCT ORDERABLES - DEVICE Final Result ZULEMA [address] [facility] [place] [address] * eGFR (04/03/2024 7:45 AM CDT) [facility] eGFR >90 >=60 mL/min/1. 73 [...] Menon MD LAB BLOOD ORDERABLES Final Result [place] [id number] [facility] [place] [address] * (ABNORMAL) Manual Differential (04/03/2024 7:45 AM CDT) Differential Manual Cells Counted 100 [facility] Neutrophil abs 9.1(H) 1.5 - 6.5 K/cumm [facility] Imm gran abs 0.2(H) 0.0 - 0.1 K/cumm [facility] Lymphocyte abs 5.5(H) 0.8 - 3.3 K/cumm [facility] Monocyte abs 1.3(H) 0.2 - 0.8 K/cumm [facility] Eosinophil abs 0.2 0.0 - 0.5 K/cumm [facility] Neutrophil pct 56.0 % [facility] Comment: Interpretive Data Percent cell count reference ranges are not reported, since discordance with absolute values may lead to misinterpretation of CBC data. Current Interpretive Data was last revised on 2018. Lymphocyte pct 34.0 % [facility] Comment: Interpretive Data Percent cell count reference ranges are not reported, since discordance with absolute values may lead to misinterpretation of CBC data. Current Interpretive Data was last revised on 2018. Monocyte pct 8.0 % [facility] Comment: Interpretive Data Percent cell count reference ranges are not reported, since discordance with absolute values may lead to misinterpretation of CBC data. Current Interpretive Data was last revised on 2018. Eosinophil pct 1.0 % [facility] Comment: Interpretive Data Percent cell count reference ranges are not reported, since discordance with absolute values may lead to misinterpretation of CBC data. Current Interpretive Data was last revised on 2018. Metamyelocyte pct 1.0 % [facility] RBC morphology Consistent with RBC Indicies [facility] Poikilocytosis Moderate(A) [facility] Macrocytes 8-15/HPF(A) [facility] Target cells 3-7/HPF(A) [facility] Platelet estimate Automated Count Confirmed [facility] Blood 04/03/2024 7:45 AM CDT 04/03/2024 8:02 AM CDT Eric Menon MD LAB BLOOD ORDERABLES Final Result [place] [id number] [facility] Department [place] [address] * (ABNORMAL) Basic metabolic panel (04/03/2024 7:45 AM CDT) Sodium 138 135 - 145 mmol/L Potassium, pl 4.5 3.3 - 4.9 mmol/L [facility] Chloride 100 97 - 110 mmol/L [facility] CO2 30 22 - 32 mmol/L [facility] Anion gap 8 2 - 15 mmol/L [facility] BUN 30(H) 6 - 25 mg/dL [facility] Creatinine 0.76(L) 0.80 - 1.30 mg/dL [facility] Glucose 194 70 - 199 mg/dL [facility] Comment: Interpretive Data Fasting glucose >/= [...] 2022. Calcium 8.7 8.5 - 10.3 mg/dL [facility] Blood 04/03/2024 7:45 AM CDT 04/03/2024 8:02 AM CDT Eric Menon MD LAB BLOOD ORDERABLES Final Result ZULEMA [address] [place] [address] * (ABNORMAL) CBC with auto differential (04/03/2024 7:45 AM CDT) WBC 16.3(H) 3.8 - 9.9 K/cumm Hgb 9.9(L) 13.0 - 17.5 g/dL [facility] Hct 29.5(L) 38.9 - 50.3 % [facility] Plt 509(H) 150 - 400 K/cumm [facility] MPV 10.3 9.1 - 12.3 fL [facility] RBC 2.78(L) 4.30 - 5.80 M/cumm [facility] MCV 106.1(H) 81.3 - 96.4 fL [facility] MCH 35.6(H) 27.1 - 33.3 pg [facility] MCHC 33.6 32.3 - 35.7 g/dL [facility] RDW CV 16.6(H) 11.1 - 14.9 % [facility] RDW SD 62.2(H) 35.7 - 48.1 fL [facility] NRBC abs 0.98(H) 0.00 - 0.01 K/cumm [facility] Blood 04/03/2024 7:45 AM CDT 04/03/2024 8:02 AM CDT Eric Menon MD LAB BLOOD ORDERABLES Edited Result - Final [address] [address] * POCT glucose (04/03/2024 7:32 AM CDT) Glucose, POC 191 70 - 199 mg/dL Glucose comment 1 Use This Result [facility] Glucose comment 2 RN/ Notified ZULEMA Blood 04/03/2024 7:32 AM CDT 04/03/2024 7:32 AM CDT Eric Menon MD LAB POCT ORDERABLES - DEVICE Final Result Performing Organization Address City/[facility]/ZIP Co de Phone Number ZULEMA [address] [address] * POCT glucose (04/03/2024 3:16 AM CDT) Glucose, POC 82 70 - 199 mg/dL Glucose comment 1 Use This Result [facility] Glucose comment 2 RN/ Notified Z[facility] Blood 04/03/2024 3:16 AM CDT 04/03/2024 3:16 AM CDT Eric Menon MD LAB POCT ORDERABLES - DEVICE Final Result Performing Organization Address City/[facility] Co de Phone Number [address] [address] * (ABNORMAL) POCT glucose (04/02/2024 11:43 PM CDT) Glucose, POC 220(H) 70 - 199 mg/dL Glucose comment 1 Use This Result [facility] Glucose comment 2 RN/ Notified ZULEMA Blood 04/02/2024 11:4 3 PM CDT 04/02/2024 11:43 PM CDT Eric Menon MD LAB POCT ORDERABLES - DEVICE Final Result ZULE[facility] [address] [address] * POCT glucose (04/02/2024 8:03 PM CDT) Glucose, POC 147 70 - 199 mg/dL Glucose comment 1 Use This Result [facility] Glucose comment 2 RN/MD Notified ZULEMA Blood 04/02/2024 8:03 PM CDT 04/02/2024 8:03 PM CDT Eric Menon MD LAB POCT ORDERABLES - DEVICE Final Result ZULE[facility] [address] [address] * (ABNORMAL) POCT glucose (04/02/2024 4:32 PM CDT) Glucose, POC 200(H) 70 - 199 mg/dL Glucose comment 1 Use This Result [facility] Blood 04/02/2024 4:32 PM CDT 04/02/2024 4:32 PM CDT Eric Menon MD LAB POCT ORDERABLES - DEVICE Final Result Performing Organization Address City/[facility]/ZIP Co de Phone Number ZULEMA [address] [address] * POCT glucose (04/02/2024 11:08 AM CDT) Glucose, POC 98 70 - 199 mg/dL Glucose comment 1 Use This Result [facility] Blood 04/02/2024 11:0 8 AM CDT 04/02/2024 11:08 AM CDT Eric Menon MD LAB POCT ORDERABLES - DEVICE Final Result [facility] [address] * (ABNORMAL) Manual Differential (04/02/2024 8:29 AM CDT) Differential Manual Cells Counted 100 [facility] Neutrophil abs 10.9(H) 1.5 - 6.5 K/cumm [facility] Lymphocyte abs 3.8(H) 0.8 - 3.3 K/cumm [facility] Monocyte abs 1.0(H) 0.2 - 0.8 K/cumm [facility] Eosinophil abs 0.3 0.0 - 0.5 K/cumm [facility] Neutrophil pct 68.0 % [facility] Comment: Interpretive Data Percent cell count reference ranges are not reported, since discordance with absolute values may lead to misinterpretation of CBC data. Current Interpretive Data was last revised on 2018. Lymphocyte pct 24.0 % [facility] Comment: Interpretive Data Percent cell count reference ranges are not reported, since discordance with absolute values may lead to misinterpretation of CBC data. Current Interpretive Data was last revised on 2018. Monocyte pct 6.0 % [facility] Comment: Interpretive Data Percent cell count reference ranges are not reported, since discordance with absolute values may lead to misinterpretation of CBC data. Current Interpretive Data was last revised on 2018. Eosinophil pct 2.0 % [facility] Comment: Interpretive Data Percent cell count reference ranges are not reported, since discordance with absolute values may lead to misinterpretation of CBC data. Current Interpretive Data was last revised on 2018. RBC morphology Present(A) [facility] Poikilocytosis Moderate(A) [facility] Macrocytes 8-15/HPF(A) [facility] Target cells 8-15/HPF(A) [facility] Platelet estimate Automated Count Confirmed [facility] Blood 04/02/2024 8:29 AM CDT 04/02/2024 8:43 AM CDT us Eric Menon MD LAB BLOOD ORDERABLES Final Result [facility] [address] [facility] Department [place] [address] * (ABNORMAL) CBC with auto differential (04/02/2024 8:29 AM CDT) WBC 16.0(H) 3.8 - 9.9 K/cumm Hgb 10.4(L) 13.0 - 17.5 g/dL [facility] Hct 31.3(L) 38.9 - 50.3 % [facility] Plt 510(H) 150 - 400 K/cumm [facility] MPV 10.1 9.1 - 12.3 fL [facility] RBC 2.99(L) 4.30 - 5.80 M/cumm [facility] MCV 104.7(H) 81.3 - 96.4 fL [facility] MCH 34.8(H) 27.1 - 33.3 pg [facility] MCHC 33.2 32.3 - 35.7 g/dL [facility] RDW CV 16.4(H) 11.1 - 14.9 % [facility] RDW SD 61.8(H) 35.7 - 48.1 fL [facility] NRBC abs 0.91(H) 0.00 - 0.01 K/cumm [facility] Blood 04/02/2024 8:29 AM CDT 04/02/2024 8:43 AM CDT Eric Menon MD LAB BLOOD ORDERABLES Final Result Performing Organization Address [facility] Co de Phone Number [address] [place] [address] * POCT glucose (04/02/2024 7:17 AM CDT) Pathologist [facility] Glucose, POC 136 70 - 199 mg/dL Glucose comment 1 Use This Result [facility] Blood 04/02/2024 7:17 AM CDT 04/02/2024 7:17 AM CDT Eric Menon MD LAB POCT ORDERABLES - DEVICE Final Result Performing Organization Address City/[facility] Co de Phone Number [address] [place] [address] * POCT glucose (04/01/2024 7:20 PM CDT) Glucose, POC 121 70 - 199 mg/dL Glucose comment 1 Use This Result [facility] Glucose comment 2 RN/MD Notified [facility] Blood 04/01/2024 7:20 PM CDT 04/01/2024 7:20 PM CDT Yrn Suarez MD LAB POCT ORDERABLES - DEVIC E Final Result [place] [place] [address] * POCT glucose (04/01/2024 4:31 PM CDT) Glucose, POC 165 70 - 199 mg/dL Glucose comment 1 Use This Result [facility] Glucose comment 2 RN/ Notified ZULEMA Blood 04/01/2024 4:31 PM CDT 04/01/2024 4:31 PM CDT Yrn Suarez MD LAB POCT ORDERABLES - DEVIC E Final Result Performing Organization Address [facility] Co de Phone Number [address] [place] [address] * (ABNORMAL) POCT glucose (04/01/2024 11:11 AM CDT) Glucose, POC 201(H) 70 - 199 mg/dL Glucose comment 1 Use This Result [facility] Glucose comment 2 RN/MD Notified [facility] Blood 04/01/2024 11:1 1 AM CDT 04/01/2024 11:11 AM CDT Yrn Suarez MD LAB POCT ORDERABLES - DEVIC E Final Result [address] [place] [address] * (ABNORMAL) POCT glucose (04/01/2024 7:28 AM CDT) Pathologist [facility] Glucose, POC 202(H) 70 - 199 mg/dL Glucose comment 1 Use This Result [facility] Glucose comment 2 RN/MD Notified [facility] Blood 04/01/2024 7:28 AM CDT 04/01/2024 7:28 AM CDT us Yrn Suarez MD LAB POCT ORDERABLES - DEVIC E Final Result [facility] [address] [facility] Department [place] [address] * eGFR (04/01/2024 5:02 AM CDT) Pathologist [facility] eGFR >90 >=60 mL/min/1. 73 [...] BLOOD ORDERABLES Final Result Performing Organization Address City/[facility]/ZIP Co de Phone Number ZULEMA [address] [address] * Magnesium (04/01/2024 5:02 AM CDT) Pathologist [facility] Magnesium 1.8 1.4 - 2.5 mg/dL Blood 04/01/2024 5:02 AM CDT 04/01/2024 5:10 AM CDT Yrn Suarez MD LAB BLOOD ORDERABLES Final Result Performing Organization Address City/[facility] Co de Phone Number [address] [address] * (ABNORMAL) Differential, auto (04/01/2024 5:02 AM CDT) Pathologist [facility] Neutrophil abs 9.9(H) 1.5 - 6.5 K/cumm Imm gran abs 0.2(H) 0.0 - 0.1 K/cumm [facility] Lymphocyte abs 4.9(H) 0.8 - 3.3 K/cumm [facility] Monocyte abs 1.5(H) 0.2 - 0.8 K/cumm [facility] Eosinophil abs 0.0 0.0 - 0.5 K/cumm [facility] Basophil abs 0.0 0.0 - 0.1 K/cumm [facility] Neutrophil pct 60.3 % [facility] Comment: Interpretive Data Percent cell count reference ranges are not reported, since discordance with absolute values may lead to misinterpretation of CBC data. Current Interpretive Data was last revised on 2018. Imm gran pct 1.1 % [facility] Comment: Interpretive Data Percent cell count reference ranges are not reported, since discordance with absolute values may lead to misinterpretation of CBC data. Current Interpretive Data was last revised on 2018. Lymphocyte pct 29.6 % [facility] Comment: Interpretive Data Percent cell count reference ranges are not reported, since discordance with absolute values may lead to misinterpretation of CBC data. Current Interpretive Data was last revised on 2018. Monocyte pct 8.8 % [facility] Comment: Interpretive Data Percent cell count reference ranges are not reported, since discordance with absolute values may lead to misinterpretation of CBC data. Current Interpretive Data was last revised on 2018. Eosinophil pct 0.1 % [facility] Comment: Interpretive Data Percent cell count reference ranges are not reported, since discordance with absolute values may lead to misinterpretation of CBC data. Current Interpretive Data was last revised on 2018. Basophil pct 0.1 % [facility] Comment: Interpretive Data Percent cell count reference ranges are not reported, since discordance with absolute values may lead to misinterpretation of CBC data. Current Interpretive Data was last revised on 2018. Blood 04/01/2024 5:02 AM CDT 04/01/2024 5:10 AM CDT us Yrn Suarez MD LAB BLOOD ORDERABLES Final Result [facility] [address] [facility] [place] [address] * (ABNORMAL) CBC with auto differential (04/01/2024 5:02 AM CDT) WBC 16.4(H) 3.8 - 9.9 K/cumm Hgb 9.6(L) 13.0 - 17.5 g/dL [facility] Hct 28.0(L) 38.9 - 50.3 % [facility] Plt 494(H) 150 - 400 K/cumm [facility] MPV 10.0 9.1 - 12.3 fL [facility] RBC 2.75(L) 4.30 - 5.80 M/cumm [facility] MCV 101.8(H) 81.3 - 96.4 fL [facility] MCH 34.9(H) 27.1 - 33.3 pg [facility] MCHC 34.3 32.3 - 35.7 g/dL [facility] RDW CV 15.9(H) 11.1 - 14.9 % [facility] RDW SD 59.4(H) 35.7 - 48.1 fL [facility] NRBC abs 0.68(H) 0.00 - 0.01 K/cumm [facility] Blood 04/01/2024 5:02 AM CDT 04/01/2024 5:10 AM CDT Yrn Suarez MD LAB BLOOD ORDERABLES Final Result [facility] [address] [facility] Department [place] [address] * (ABNORMAL) Basic metabolic panel (04/01/2024 5:02 AM CDT) Sodium 137 135 - 145 mmol/L Potassium, pl 4.6 3.3 - 4.9 mmol/L [facility] Chloride 100 97 - 110 mmol/L [facility] CO2 30 22 - 32 mmol/L [facility] Anion gap 7 2 - 15 mmol/L [facility] BUN 28(H) 6 - 25 mg/dL [facility] Creatinine 0.74(L) 0.80 - 1.30 mg/dL [facility] Glucose 183 70 - 199 mg/dL [facility] Comment: Delta - Results Reviewed Interpretive [...] 2022. Calcium 8.5 8.5 - 10.3 mg/dL [facility] Blood 04/01/2024 5:02 AM CDT 04/01/2024 5:10 AM CDT Yrn Suarez MD LAB BLOOD ORDERABLES Final Result Performing Organization Address City/[facility]/ZIP Co de Phone Number [address] [place] [address] * POCT glucose (04/01/2024 3:45 AM CDT) Glucose, POC 177 70 - 199 mg/dL Glucose comment 1 Use This Result [facility] Glucose comment 2 RN/MD Notified [facility] Blood 04/01/2024 3:45 AM CDT 04/01/2024 3:45 AM CDT Result [facility] Yrn Suarez MD LAB POCT ORDERABLES - DEVIC E Final Result Performing Organization Address [facility] Co de Phone Number [address] [place] [address] * (ABNORMAL) POCT glucose (03/31/2024 7:44 PM CDT) Glucose, POC 308(H) 70 - 199 mg/dL Glucose comment 1 Use This Result [facility] Glucose comment 2 RN/MD Notified ZULEMA Blood 03/31/2024 7:44 PM CDT 03/31/2024 7:44 PM CDT Result [facility] Yrn Suarez MD LAB POCT ORDERABLES - DEVIC E Final Result Performing Organization Address City/[facility] Co de Phone Number [address] [place] [address] * (ABNORMAL) POCT glucose (03/31/2024 6:30 PM CDT) Glucose, POC 285(H) 70 - 199 mg/dL Glucose comment 1 Use This Result [facility] Glucose comment 2 Critical Value [facility] Blood 03/31/2024 6:30 PM CDT 03/31/2024 6:30 PM CDT Yrn Suarez MD LAB POCT ORDERABLES - DEVIC E Final Result Performing Organization Address City/[facility]/ZIP Co de Phone Number ZULEMA [facility] [place] [address] * (ABNORMAL) POCT glucose (03/31/2024 4:00 PM CDT) Glucose, POC 414(H) 70 - 199 mg/dL Glucose comment 1 Use This Result [facility] Glucose comment 2 Critical Value [facility] Blood 03/31/2024 4:00 PM CDT 03/31/2024 4:00 PM CDT Yrn Suarez MD LAB POCT ORDERABLES - DEVIC E Final Result Performing Organization Address [facility] Co de Phone Number ZULEMA [facility] [place] [address] * XR Chest 1 View (03/31/2024 3:23 [...] D: ??03/31/2024 6:25 PM T: Report ID: [id number] Reading Location: [id number] Procedure Note Dallas Abbott MD - 03/31/2024 [...] signed by Dallas FENG T: Report ID: [id number] Reading Location: [id number] us Yrn Suarez MD IMG XR PROCEDURES Final Res ult * POCT glucose (03/31/2024 11:19 AM CDT) Glucose, POC 123 70 - 199 mg/dL Glucose comment 1 Use This Result [facility] Blood 03/31/2024 11:1 9 AM CDT 03/31/2024 11:19 AM CDT us Yrn Suarez MD LAB POCT ORDERABLES - DEVIC E Final Result [facility] [address] [facility] [place] [address] * POCT glucose (03/31/2024 7:07 AM CDT) Glucose, POC 164 70 - 199 mg/dL Glucose comment 1 Use This Result [facility] Blood 03/31/2024 7:07 AM CDT 03/31/2024 7:07 AM CDT Yrn Suarez MD LAB POCT ORDERABLES - DEVIC E Final Result [facility] [address] [facility] [place] [address] * eGFR (03/31/2024 3:09 AM CDT) eGFR [...] BLOOD ORDERABLES Final Result Performing Organization Address City/[facility]/ZIP Co de Phone Number [address] [address] * Magnesium (03/31/2024 3:09 AM CDT) Pathologist [facility] Magnesium 1.9 1.4 - 2.5 mg/dL Blood 03/31/2024 3:09 AM CDT 03/31/2024 3:50 AM CDT Jhonny Cordova MD LAB BLOOD ORDERABLES Final Result Performing Organization Address [facility] de Phone Number [address] [address] * (ABNORMAL) Basic metabolic panel (03/31/2024 3:09 AM CDT) [facility] Sodium 137 135 - 145 mmol/L Potassium, pl 4.4 3.3 - 4.9 mmol/L [facility] Comment:Delta - Results Revi ewed Chloride 98 97 - 110 mmol/L [facility] CO2 29 22 - 32 mmol/L [facility] Anion gap 10 2 - 15 mmol/L [facility] BUN 24 6 - 25 mg/dL [facility] Creatinine 0.78(L) 0.80 - 1.30 mg/dL [facility] Glucose 337(H) 70 - 199 mg/dL [facility] Comment: Interpretive Data Fasting glucose >/= [...] 2022. Calcium 8.9 8.5 - 10.3 mg/dL [facility] Blood 03/31/2024 3:09 AM CDT 03/31/2024 3:50 AM CDT Jhonny Cordova MD LAB BLOOD ORDERABLES Final Result Performing Organization Address City/[facility] Co de Phone Number [address] [place] [address] * (ABNORMAL) POCT glucose (03/31/2024 2:46 AM CDT) Glucose, POC 337(H) 70 - 199 mg/dL Blood 03/31/2024 2:46 AM CDT 03/31/2024 2:46 AM CDT Jhonny Cordova MD LAB POCT ORDERABLES - JULIO CE Final Result Performing Organization Address City/[facility] Co de Phone Number [address] [place] [address] * (ABNORMAL) POCT glucose (03/30/2024 10:24 PM CDT) Glucose, POC 294(H) 70 - 199 mg/dL Blood 03/30/2024 10:2 4 PM CDT 03/30/2024 10:24 PM CDT Jhonny Cordova MD LAB POCT ORDERABLES - JULIO CE Final Result Performing Organization Address City/[facility] Co de Phone Number [address] [place] [address] * (ABNORMAL) POCT glucose (03/30/2024 7:50 PM CDT) Glucose, POC 298(H) 70 - 199 mg/dL Blood 03/30/2024 7:50 PM CDT 03/30/2024 7:50 PM CDT Jhonny Cordova MD LAB POCT ORDERABLES - JULIO CE Final Result Performing Organization Address [facility] de Phone Number ZULEMA [address] [place] [address] * (ABNORMAL) POCT glucose (03/30/2024 5:05 PM CDT) Glucose, POC 302(H) 70 - 199 mg/dL Blood 03/30/2024 5:05 PM CDT 03/30/2024 5:05 PM CDT Jhonny Cordova MD LAB POCT ORDERABLES - JULIO CE Final Result Performing Organization Address [facility] de Phone Number ZULEMA [address] [place] [address] * (ABNORMAL) POCT glucose (03/30/2024 3:59 PM CDT) Glucose, POC 260(H) 70 - 199 mg/dL Glucose comment 1 Use This Result ZULEMA Blood 03/30/2024 3:59 PM CDT 03/30/2024 3:59 PM CDT Jhonny Cordova MD LAB POCT ORDERABLES - JULIO CE Final Result Performing Organization Address [facility] de Phone Number LESLIE[address] [place] [address] * (ABNORMAL) POCT glucose (03/30/2024 11:14 AM CDT) Glucose, POC 383(H) 70 - 199 mg/dL Glucose comment 1 Use This Result ZULEMA Blood 03/30/2024 11:1 4 AM CDT 03/30/2024 11:14 AM CDT Jhonny Cordova MD LAB POCT ORDERABLES - JULIO CE Final Result Performing Organization Address [facility] de Phone Number ZULEMA CHAVEZ [address] [facility] [place] [address] * POCT glucose (03/30/2024 7:39 AM CDT) Pathologist [facility] Glucose, POC 196 70 - 199 mg/dL Glucose comment 1 Use This Result [facility] Blood 03/30/2024 7:39 AM CDT 03/30/2024 7:39 AM CDT us Jhonny Cordova MD LAB POCT ORDERABLES - JULIO CE Final Result Performing Organization Address City/[facility] Co de Phone Number ZULMEA [facility] [place] [address] * (ABNORMAL) Differential, auto (03/30/2024 4:02 AM CDT) [facility] Neutrophil abs 8.4(H) 1.5 - 6.5 K/cumm Imm gran abs 0.1 0.0 - 0.1 K/cumm [facility] Lymphocyte abs 1.1 0.8 - 3.3 K/cumm [facility] Monocyte abs 0.4 0.2 - 0.8 K/cumm [facility] Eosinophil abs 0.0 0.0 - 0.5 K/cumm [facility] Basophil abs 0.0 0.0 - 0.1 K/cumm [facility] Neutrophil pct 84.2 % [facility] Comment: Interpretive Data Percent cell count reference ranges are not reported, since discordance with absolute values may lead to misinterpretation of CBC data. Current Interpretive Data was last revised on 2018. Imm gran pct 1.1 % [facility] Comment: Interpretive Data Percent cell count reference ranges are not reported, since discordance with absolute values may lead to misinterpretation of CBC data. Current Interpretive Data was last revised on 2018. Lymphocyte pct 11.1 % [facility] Comment: Interpretive Data Percent cell count reference ranges are not reported, since discordance with absolute values may lead to misinterpretation of CBC data. Current Interpretive Data was last revised on 2018. Monocyte pct 3.5 % [facility] Comment: Interpretive Data Percent cell count reference ranges are not reported, since discordance with absolute values may lead to misinterpretation of CBC data. Current Interpretive Data was last revised on 2018. Eosinophil pct 0.0 % [facility] Comment: Interpretive Data Percent cell count reference ranges are not reported, since discordance with absolute values may lead to misinterpretation of CBC data. Current Interpretive Data was last revised on 2018. Basophil pct 0.1 % [facility] Comment: Interpretive Data Percent cell count reference ranges are not reported, since discordance with absolute values may lead to misinterpretation of CBC data. Current Interpretive Data was last revised on 2018. Blood 03/30/2024 4:02 AM CDT 03/30/2024 5:05 AM CDT us Jhonny Cordova MD LAB BLOOD ORDERABLES Final Result [place] [id number] [facility] [place] [address] * (ABNORMAL) CBC with auto differential (03/30/2024 4:02 AM CDT) WBC 10.0(H) 3.8 - 9.9 K/cumm Hgb 9.4(L) 13.0 - 17.5 g/dL [facility] Hct 28.2(L) 38.9 - 50.3 % [facility] Plt 439(H) 150 - 400 K/cumm [facility] MPV 10.6 9.1 - 12.3 fL [facility] RBC 2.70(L) 4.30 - 5.80 M/cumm [facility] MCV 104.4(H) 81.3 - 96.4 fL [facility] MCH 34.8(H) 27.1 - 33.3 pg [facility] MCHC 33.3 32.3 - 35.7 g/dL [facility] RDW CV 15.7(H) 11.1 - 14.9 % [facility] RDW SD 59.0(H) 35.7 - 48.1 fL [facility] NRBC abs 0.02(H) 0.00 - 0.01 K/cumm [facility] Blood 03/30/2024 4:02 AM CDT 03/30/2024 5:05 AM CDT Jhonny Cordova MD LAB BLOOD ORDERABLES Final Result Performing Organization Address City/[facility] Co de Phone Number [address] [place] [address] * POCT glucose (03/30/2024 3:52 AM CDT) Glucose, POC 168 70 - 199 mg/dL Glucose comment 1 Use This Result [facility] Glucose comment 2 RN/MD Notified ZULEMA Blood 03/30/2024 3:52 AM CDT 03/30/2024 3:52 AM CDT Jhonny Cordova MD LAB POCT ORDERABLES - JULIO CE Final Result Performing Organization Address [facility] Co de Phone Number [address] [place] [address] * (ABNORMAL) POCT glucose (03/30/2024 12:55 AM CDT) Glucose, POC 346(H) 70 - 199 mg/dL Glucose comment 1 Use This Result [facility] Glucose comment 2 RN/MD Notified ZULEMA Blood 03/30/2024 12:5 5 AM CDT 03/30/2024 12:55 AM CDT Jhonny Cordova MD LAB POCT ORDERABLES - JULIO CE Final Result Performing Organization Address City/[facility] Co de Phone Number [address] [place] [address] * (ABNORMAL) POCT glucose (03/29/2024 10:29 PM CDT) Glucose, POC 480(C) 70 - 199 mg/dL Glucose comment 1 Use This Result [facility] Glucose comment 2 RN/MD Notified ZULEMA Blood 03/29/2024 10:2 9 PM CDT 03/29/2024 10:29 PM CDT Jhonny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 Engineer Internal Medicine 06/12/23 Halie Khan MD [address] [facility] [address] [place] [address] Rn Homecare Critical Care Med 06/12/23 Wilfred Kinsey MD [address] [address] Consulting Physician Gastroenterology 03/02/24 documented as of this encounter
--- OUTSIDE RECORDS SUMMARY | 2024-11-22 12:52 | XMS_ITS | Encounter Summary ---
Author Organization [facility] Healthcare Address [address] [place] [address] Care Team Providers Care Route Sales Delivery Drivers Supervisor Name Role Phone Josué Del Valle MD PhD Unavailable [phone] Kirt Lindsay DO Primary Care Provider [phone] Cal Carranza DO Unavailable [phone] Halie Khan MD Unavailable [phone] Wilfred Kinsey MD Unavailable Encounter Details Date Type Department Care Team (Late st Contact Info) Description 03/07/[address] [facility] Home Care Services [address] [place] [address] Fela Graham RPh Social History Tobacco Use [...] attend chur ch or druze services? Never 02/20/2024 Do you belong to [...] slept in a retirement (including now)? No 02/20/2024 Personal Safety Answer Date Recorded Have you ever been in or are you currently in a harmful physical or emotional relationship or is someone making you feel afraid or unsafe? 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 Gender Identity Not on file Sexual Orientation [...] on filedocumented in this encounter Care Teams Route Sales Delivery Drivers Supervisor Relationship Specialty Start Date End Date Kirt Lindsay DO PCP - General Internal Medicine 02/02/21 Josué Del Valle MD PhD Medical Oncologist/Pilot Plant Supervisor Medical Oncology 08/26/19 Cal Carranza DO [address] [place] [address] Healthcare Social Worker Internal Medicine 06/12/23 Halie Khan MD [address] [facility] [address] [place] [address] Rn Invasive Critical Care Med 06/12/23 Wilfred Kinsey MD [address] [address] Consulting Physician Gastroenterology 03/02/24 documented as of this encounter
--- OUTSIDE RECORDS SUMMARY | 2024-11-22 12:53 | XMS_ITS | Encounter Summary ---
Author Organization [facility] Address [address] [place] [address] Phone Care Team Providers Care Casting Room Operator Name Role Phone Josué Del Valle MD PhD Unavailable [phone] Kirt Lindsay DO Primary Care Provider [phone] Cal Carranza DO Unavailable [phone] Halie Khan MD Unavailable [phone] Reason for Visit * Reason Onset Date Comments Warning Letter 02/25/2024 Encounter Details Date Type Department Care Team (Late st Contact Info) Description 02/25/2024 Telephone [facility] Endocrinology Metabolism and Lipid [address] [facility] Advanced Medicine 13th [place] [address] [place] [id number] Arleen Camejo RMA Warning Letter Social History [...] often do you attend chur ch or rastafari services? 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 See Media for letter. documented in this encounter Plan of Treatment Not on file documented as of this encounter Visit Diagnoses Not on filedocumented in this encounter Care Teams Casting Room Operator Relationship Specialty Start Date End Date Kirt Lindsay DO PCP - General Internal Medicine 02/02/21 Josué Del Valle MD PhD Medical Oncologist/Volunteer Fire Fighter Medical Oncology 08/26/19 Cal Carranza DO [address] [place], [place] [id number] Janitorial Manager Internal Medicine 06/12/23 Halie Khan MD [address] [place] [address] Software Engineer Intern Critical Care Med 06/12/23 documented as of this encounter
--- OUTSIDE RECORDS SUMMARY | 2024-11-22 12:53 | XMS_ITS | Encounter Summary ---
Author Organization [facility] Address [address] [place] [address] Phone Care Team Providers Care Tinware Lithograph Press Operator Name Role Phone Josué Del Valle MD PhD Unavailable [phone] Kirt Lindsay DO Primary Care Provider [phone] Cal Carranza DO Unavailable [phone] Halie Khan MD Unavailable [phone] Wilfred Kinsey MD Unavailable Encounter Details Date Type Department Care Team (Late st Contact Info) Description 03/02/2024 Telephone [facility] [address] [facility] Advanced [facility] 7th [place] [address] [place] [id number] Irina Conrad Social History Tobacco Use Types Packs/Day Years Used Date Smoking Tobacco: Some Days Cigarettes 0.5 40 Started: 1985 Smokeless Tobacco: Never Comments:pt states tried to quit [facility] Utilities Answer Date Recorded In [...] often do you attend chur ch or muslim services? 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 documented in this encounter Plan of Treatment Not on file documented as of this encounter Visit Diagnoses Not on filedocumented in this encounter Care Teams Tinware Lithograph Press Operator Relationship Specialty Start Date End Date Kirt Lindsay DO PCP - General Internal Medicine 02/02/21 Josué Del Valle MD PhD Medical Oncologist/Openstack Developer Medical Oncology 08/26/19 Cal Carranza DO [address] [id number] Automatic Bow Maker Machine Tender Internal Medicine 06/12/23 Halie hKan MD [address] [id number] Cap Jewel Plate Assembler Critical Care Med 06/12/23 Wilfred Kinsey MD [address] [address] Consulting Physician Gastroenterology 03/02/24 documented as of this encounter
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
--- OUTSIDE RECORDS SUMMARY | 2024-11-22 12:53 | XMS_ITS | Encounter Summary ---
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 secure chat with questions * Plan of Care - Ethel De Jesus RN - 02/27/2024 10:50 AM CDT Goals: Clinical Goals for the Shift: comfort, safety, no shortess of breath [facility] Patient Centered Goal for Treatment: Back to [...] for the Shift: stable VS, comfort, safety [facility] Patient Centered Goal for Treatment: Back to [...] for the Shift: stable VS, comfort, safety Ch[facility] Patient Centered Goal for Treatment: Back to [...] for the Shift: stable VS, comfort, safety [facility] Patient Centered Goal for Treatment: Back to [...] for the Shift: stable VS, comfort, safety Ch[facility] Patient Centered Goal for Treatment: Back to baseline * Plan of Care - Zaria Grajeda, ELECTRICAL FITTER - 02/23/2024 7:21 AM CDT Problem: Chronic Obstructive Pulmonary Disease (COPD) Goal: Patient's ability to manage health related needs with COPD will improve Outcome: Progressing Goal: Ability to implement measures to reduce episodes of fatigue will improve Outcome: Progressing Problem: Respiratory Goal: Achieves optimal ventilation and oxygenation Outcome: Progressing Flowsheets (Taken 02/23/2024 21) Achieves optimal ventilation and oxygenation: Assess for [...] for the Shift: stable VS, comfort, safety [facility] Patient Centered Goal for Treatment: Back to [...] Shift: VSS, comfort, safety and pain management 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, originally from home . Impression: Feeling of [...] Coverage Payor Plan Insurance Group Employer/Plan Group [facility] MEDICARE MEDICARE SOLUTIONS [id number] Payor Plan Address Payor Plan Phone Number Payor Plan Fax Number Effective Dates [address] [address] 08/18/2020 - None Entered [facility] [address] Subscriber Name Subscriber Date Member ID BRI JONES 1965 [id number] Secondary Coverage Payor Plan Insurance Group Employer/Plan [place] Pay[place] Plan Address Payor Plan Phone Number Payor Plan Fax Number Effective Dates [address] [address] 02/17/2024 - 02/20/2024 [place] [address] Subscriber Name Subscriber Date Member ID BRI JONES 1965 [id number] Tertiary Coverage Payor Plan Insurance Group Employer/Plan Group IDPA IDPA Payor Plan Address Payor Plan Phone Number Payor Plan Fax Number Effective Dates [address] [address] 05/18/2019 - None Entered [facility] [address] Subscriber Name Subscriber Date Member ID BRI JONES 1965 [id number] Pharmacy: [id number] - [place], [place] - [address] AT [address] OF [address] [place] [address] [facility] - [place] - [address] [place] [address] [facility] [place] - [place], [place] - [address] [facility] [address] [place] [address] Primary Care Provider: Gama Lindsay DO Prior to Admission: Functional Status: Independent with ADLs Primary Caregiver: Self Support System: Friends/neighbors Home Care Services: No Outpatient Services: No Durable Medical Equipment: Oxygen Oxygen Detail: 3 L continuous DME Name and Contact Number: [place] [facility] Living Arrangements: Friends Type of Residence: [...] a week How often do you attend rastafari or episcopal services?: Never Do you belong to any clubs or organizations such as rastafari groups, unions, fraternal [...] - DEVICE Final Result Performing Organization Address [facility] Co de Phone Number ZULEMA [address] [place] [address] * POCT glucose (03/07/2024 7:53 AM CDT) Glucose, POC 123 70 - 199 mg/dL Glucose comment 1 Use This Result ZULEMA Blood 03/07/2024 7:53 AM CDT 03/07/2024 7:53 AM CDT Gianna Dey MD LAB POCT ORDERABLES - DEVICE Final Result Performing Organization Address [facility] Co de Phone Number [address] [place] [address] * POCT glucose (03/07/2024 3:56 AM CDT) Glucose, POC 199 70 - 199 mg/dL Glucose comment 1 Use This Result [facility] Glucose comment 2 RN/MD Notified ZULEMA Blood 03/07/2024 3:56 AM CDT 03/07/2024 3:56 AM CDT Gianna Dey MD LAB POCT ORDERABLES - DEVICE Final Result Performing Organization Address City/[facility] Co de Phone Number [address] [place] [address] * POCT glucose (03/06/2024 11:31 PM CDT) Glucose, POC 195 70 - 199 mg/dL Glucose comment 1 Use This Result [facility] Glucose comment 2 RN/MD Notified ZULEMA Blood 03/06/2024 11:3 1 PM CDT 03/06/2024 11:31 PM CDT Gianna Dey MD LAB POCT ORDERABLES - DEVICE Final Result ZULEMA [address] [address] * POCT glucose (03/06/2024 8:03 PM CDT) Glucose, POC 154 70 - 199 mg/dL Glucose comment 1 Use This Result [facility] Glucose comment 2 RN/ Notified [facility] Blood 03/06/2024 8:03 PM CDT 03/06/2024 8:03 PM CDT Gianna Dey MD LAB POCT ORDERABLES - DEVICE Final Result [facility] [place] [address] * POCT glucose (03/06/2024 5:49 PM CDT) Glucose, POC 175 70 - 199 mg/dL Glucose comment 1 Use This Result [facility] Blood 03/06/2024 5:49 PM CDT 03/06/2024 5:49 PM CDT Gianna Dey MD LAB POCT ORDERABLES - DEVICE Final Result [address] [place] [address] * (ABNORMAL) POCT glucose (03/06/2024 11:31 AM CDT) Glucose, POC 246(H) 70 - 199 mg/dL Glucose comment 1 Use This Result [facility] Glucose comment 2 RN/MD Notified [facility] Blood 03/06/2024 11:3 1 AM CDT 03/06/2024 11:31 AM CDT Gianna Dey MD LAB POCT ORDERABLES - DEVICE Final Result Performing Organization Address [facility] Co de Phone Number [address] [place] [address] * POCT glucose (03/06/2024 8:15 AM CDT) [facility] Glucose, POC 194 70 - 199 mg/dL Glucose comment 1 Use This Result [facility] Glucose comment 2 RN/ Notified [facility] Blood 03/06/2024 8:15 AM CDT 03/06/2024 8:15 AM CDT Gianna Dey MD LAB POCT ORDERABLES - DEVICE Final Result Performing Organization Address [facility] de Phone Number [address] [address] * (ABNORMAL) CBC without differential (03/06/2024 5:05 AM CDT) [facility] WBC 13.2(H) 3.8 - 9.9 K/cumm Hgb 10.7(L) 13.0 - 17.5 g/dL [facility] Hct 31.9(L) 38.9 - 50.3 % [facility] Plt 237 150 - 400 K/cumm [facility] MPV 9.9 9.1 - 12.3 fL [facility] RBC 3.01(L) 4.30 - 5.80 M/cumm [facility] MCV 106.0(H) 81.3 - 96.4 fL [facility] MCH 35.5(H) 27.1 - 33.3 pg [facility] MCHC 33.5 32.3 - 35.7 g/dL [facility] RDW CV 17.2(H) 11.1 - 14.9 % [facility] RDW SD 67.2(H) 35.7 - 48.1 fL [facility] NRBC abs 0.12(H) 0.00 - 0.01 K/cumm ZULEMA Blood 03/06/2024 5:05 AM CDT 03/06/2024 5:16 AM CDT Diana Rivera DO LAB BLOOD ORDERABLES Final Resul t Performing Organization Address [facility] Co de Phone Number ZULEMA [address] [place] [address] * (ABNORMAL) POCT glucose (03/06/2024 4:11 AM CDT) Glucose, POC 267(H) 70 - 199 mg/dL Glucose comment 1 Use This Result [facility] Blood 03/06/2024 4:11 AM CDT 03/06/2024 4:11 AM CDT Gianna Dey MD LAB POCT ORDERABLES - DEVICE Final Result Performing Organization Address [facility] de Phone Number ZULEMA [address] [place] [address] * (ABNORMAL) POCT glucose (03/06/2024 1:41 AM CDT) Glucose, POC 286(H) 70 - 199 mg/dL Glucose comment 1 Use This Result [facility] Blood 03/06/2024 1:41 AM CDT 03/06/2024 1:41 AM CDT us Gianna Dey MD LAB POCT ORDERABLES - DEVICE Final Result Performing Organization Address [facility] Co de Phone Number ZULEMA [address] [place] [address] * eGFR (03/06/2024 12:16 AM CDT) Pathologist [facility] [...] LAB BLOOD ORDERABLES Final Resul t ZULEMA [address] [facility] [place] [address] * Basic metabolic panel (03/06/2024 12:16 AM CDT) [facility] Sodium 136 135 - 145 mmol/L Potassium, pl 4.7 3.3 - 4.9 mmol/L [facility] Chloride 101 97 - 110 mmol/L [facility] CO2 27 22 - 32 mmol/L [facility] Anion gap 8 2 - 15 mmol/L [facility] BUN 23 6 - 25 mg/dL [facility] Creatinine 0.94 0.80 - 1.30 mg/dL [facility] Glucose 182 70 - 199 mg/dL [facility] [...] 2022. Calcium 8.6 8.5 - 10.3 mg/dL [facility] Blood 03/06/2024 12:1 6 AM CDT 03/06/2024 12:39 AM CDT us Diana Rivera DO LAB BLOOD ORDERABLES Final Resul t Performing Organization Address City/[facility]/ZIP Co de Phone Number [facility] [address] [employer] [place] [address] * (ABNORMAL) POCT glucose (03/05/2024 11:49 PM CDT) [facility] Glucose, POC 212(H) 70 - 199 mg/dL Glucose comment 1 Use This Result [facility] Blood 03/05/2024 11:4 9 PM CDT 03/05/2024 11:49 PM CDT Gianna Dey MD LAB POCT ORDERABLES - DEVICE Final Result Performing Organization Address City/State/[facility] Co de Phone Number [address] [place] [address] * (ABNORMAL) POCT glucose (03/05/2024 8:23 PM CDT) Glucose, POC 222(H) 70 - 199 mg/dL Blood 03/05/2024 8:23 PM CDT 03/05/2024 8:23 PM CDT Gianna Dey MD LAB POCT ORDERABLES - DEVICE Final Result Performing Organization Address [facility] Co de Phone Number [address] [place] [address] * POCT glucose (03/05/2024 4:25 PM CDT) Glucose, POC 185 70 - 199 mg/dL Glucose comment 1 Use This Result [facility] Glucose comment 2 RN/MD Notified [facility] Blood 03/05/2024 4:25 PM CDT 03/05/2024 4:25 PM CDT Gianna Dey MD LAB POCT ORDERABLES - DEVICE Final Result Performing Organization Address [facility] de Phone Number [address] [place] [address] * POCT glucose (03/05/2024 11:10 AM CDT) Glucose, POC 83 70 - 199 mg/dL Blood 03/05/2024 11:1 0 AM CDT 03/05/2024 11:10 AM CDT Gianna Dey MD LAB POCT ORDERABLES - DEVICE Final Result Performing Organization Address [facility] Co de Phone Number [address] [place] [address] * (ABNORMAL) Manual Differential (03/05/2024 7:49 AM CDT) Pathologist [facility] Differential Manual Cells Counted 100 [facility] Neutrophil abs 10.2(H) 1.5 - 6.5 K/cumm [facility] Lymphocyte abs 2.4 0.8 - 3.3 K/cumm [facility] Monocyte abs 1.3(H) 0.2 - 0.8 K/cumm [facility] Eosinophil abs 0.1 0.0 - 0.5 K/cumm [facility] Neutrophil pct 73.0 % [facility] Comment: Interpretive Data Percent cell count reference ranges are not reported, since discordance with absolute values may lead to misinterpretation of CBC data. Current Interpretive Data was last revised on 2018. Lymphocyte pct 16.0 % [facility] Comment: Interpretive Data Percent cell count reference ranges are not reported, since discordance with absolute values may lead to misinterpretation of CBC data. Current Interpretive Data was last revised on 2018. Monocyte pct 9.0 % [facility] Comment: Interpretive Data Percent cell count reference ranges are not reported, since discordance with absolute values may lead to misinterpretation of CBC data. Current Interpretive Data was last revised on 2018. Eosinophil pct 1.0 % [facility] Comment: Interpretive Data Percent cell count reference ranges are not reported, since discordance with absolute values may lead to misinterpretation of CBC data. Current Interpretive Data was last revised on 2018. Variant lymph pct 1.0(H) 0.0 - 0.0 % [facility] RBC morphology Present(A) [facility] Polychromasia 3-7/HPF(A) [facility] Poikilocytosis Moderate(A) [facility] Macrocytes 8-15/HPF(A) [facility] Elliptocytes 3-7/HPF(A) [facility] Platelet estimate Automated Count Confirmed [facility] Blood 03/05/2024 7:49 AM CDT 03/05/2024 8:30 AM CDT us Osmar Orta MD LAB BLOOD ORDERABLES Final R esult [facility] [address] [facility] [place] [address] * eGFR (03/05/2024 7:49 AM CDT) eGFR [...] MD LAB BLOOD ORDERABLES Final R esult [facility] [address] [facility] [place] [address] * (ABNORMAL) Comprehensive metabolic panel (03/05/2024 7:49 AM CDT) Sodium 136 135 - 145 mmol/L Potassium, pl 4.3 3.3 - 4.9 mmol/L [facility] Chloride 101 97 - 110 mmol/L [facility] CO2 27 22 - 32 mmol/L [facility] Anion gap 8 2 - 15 mmol/L [facility] BUN 25 6 - 25 mg/dL [facility] Creatinine 0.98 0.80 - 1.30 mg/dL [facility] Glucose 93 70 - 199 mg/dL [facility] [...] 2022. Calcium 8.9 8.5 - 10.3 mg/dL [facility] Bilirubin, total 0.3 0.1 - 1.2 mg/dL [facility] Protein, pl 6.9 6.5 - 8.5 g/dL [facility] Albumin 3.3(L) 3.5 - 5.0 g/dL [facility] Alk phos 148(H) 40 - 130 Units/L [facility] ALT 36 7 - 55 Units/L [facility] AST 64(H) 10 - 50 Units/L [facility] Blood 03/05/2024 7:49 AM CDT 03/05/2024 8:30 AM CDT us Osmar Orta MD LAB BLOOD ORDERABLES Final R esult [facility] [address] [facility] Department [place] [address] * (ABNORMAL) CBC with auto differential (03/05/2024 7:49 AM CDT) Pathologist [facility] WBC 14.0(H) 3.8 - 9.9 K/cumm Hgb 11.8(L) 13.0 - 17.5 g/dL [facility] Hct 35.7(L) 38.9 - 50.3 % [facility] Plt 281 150 - 400 K/cumm [facility] MPV 9.9 9.1 - 12.3 fL [facility] RBC 3.31(L) 4.30 - 5.80 M/cumm [facility] MCV 107.9(H) 81.3 - 96.4 fL [facility] MCH 35.6(H) 27.1 - 33.3 pg [facility] MCHC 33.1 32.3 - 35.7 g/dL [facility] RDW CV 17.7(H) 11.1 - 14.9 % [facility] RDW SD 69.6(H) 35.7 - 48.1 fL [facility] NRBC abs 0.26(H) 0.00 - 0.01 K/cumm [facility] Blood 03/05/2024 7:49 AM CDT 03/05/2024 8:30 AM CDT us Osmar Orta MD LAB BLOOD ORDERABLES Final R esult Performing Organization Address City/[facility] Co de Phone Number [address] [employer] [place] [address] * POCT glucose (03/05/2024 7:37 AM CDT) Glucose, POC 110 70 - 199 mg/dL Blood 03/05/2024 7:37 AM CDT 03/05/2024 7:37 AM CDT Gianna Dey MD LAB POCT ORDERABLES - DEVICE Final Result Performing Organization Address City/[facility] Co de Phone Number [address] [place] [address] * POCT glucose (03/05/2024 12:36 AM CDT) Glucose, POC 147 70 - 199 mg/dL Glucose comment 1 Use This Result [facility] Glucose comment 2 RN/MD Notified [facility] Blood 03/05/2024 12:3 6 AM CDT 03/05/2024 12:36 AM CDT Gianna Dey MD LAB POCT ORDERABLES - DEVICE Final Result Performing Organization Address [facility] Co de Phone Number ZULEMA [address] [place] [address] * (ABNORMAL) POCT glucose (03/04/2024 8:50 PM CDT) Glucose, POC 231(H) 70 - 199 mg/dL Blood 03/04/2024 8:50 PM CDT 03/04/2024 8:50 PM CDT Gianna Dey MD LAB POCT ORDERABLES - DEVICE Final Result Performing Organization Address [facility] Co de Phone Number ZULEMA [address] [place] [address] * POCT glucose (03/04/2024 4:49 PM CDT) Glucose, POC 173 70 - 199 mg/dL Glucose comment 1 Use This Result [facility] Blood 03/04/2024 4:49 PM CDT 03/04/2024 4:49 PM CDT Gianna Dey MD LAB POCT ORDERABLES - DEVICE Final Result Performing Organization Address [facility] Co de Phone Number [address] [place] [address] * HIV 1/2 Antibody plus p24 Antigen Blood (03/04/2024 12:58 PM CDT) Pathologist [facility] HIV 1/2 ab + p24 ag Nonreactive [...] O RDERABLES Final Result Performing Organization Address [facility] de Phone Number [address] [address] * (ABNORMAL) POCT glucose (03/04/2024 11:56 AM CDT) Glucose, POC 232(H) 70 - 199 mg/dL Glucose comment 1 Use This Result [facility] Blood 03/04/2024 11:5 6 AM CDT 03/04/2024 11:56 AM CDT Gianna Dey MD LAB POCT ORDERABLES - DEVICE Final Result Performing Organization Address [facility] de Phone Number [address] [address] * POCT glucose (03/04/2024 7:42 AM CDT) Glucose, POC 117 70 - 199 mg/dL Glucose comment 1 Use This Result [facility] Blood 03/04/2024 7:42 AM CDT 03/04/2024 7:42 AM CDT Gianna Dey MD LAB POCT ORDERABLES - DEVICE Final Result Performing Organization Address [facility] de Phone Number [address] [place] [address] * eGFR (03/04/2024 5:11 AM CDT) eGFR [...] MD LAB BLOOD ORDERABLES Final R esult [facility] [address] [facility] [place] [address] * (ABNORMAL) Manual Differential (03/04/2024 5:11 AM CDT) Differential Manual Cells Counted 100 [facility] Neutrophil abs 10.0(H) 1.5 - 6.5 K/cumm [facility] Imm gran abs 0.2(H) 0.0 - 0.1 K/cumm [facility] Lymphocyte abs 6.3(H) 0.8 - 3.3 K/cumm [facility] Monocyte abs 0.3 0.2 - 0.8 K/cumm [facility] Basophil abs 0.2(H) 0.0 - 0.1 K/cumm [facility] Neutrophil pct 59.0 % [facility] Comment: Interpretive Data Percent cell count reference ranges are not reported, since discordance with absolute values may lead to misinterpretation of CBC data. Current Interpretive Data was last revised on 2018. Lymphocyte pct 37.0 % [facility] Comment: Interpretive Data Percent cell count reference ranges are not reported, since discordance with absolute values may lead to misinterpretation of CBC data. Current Interpretive Data was last revised on 2018. Monocyte pct 2.0 % [facility] Comment: Interpretive Data Percent cell count reference ranges are not reported, since discordance with absolute values may lead to misinterpretation of CBC data. Current Interpretive Data was last revised on 2018. Basophil pct 1.0 % [facility] Comment: Interpretive Data Percent cell count reference ranges are not reported, since discordance with absolute values may lead to misinterpretation of CBC data. Current Interpretive Data was last revised on 2018. Metamyelocyte pct 1.0 % [facility] Anisocytosis Marked(A) [facility] Poikilocytosis Moderate(A) [facility] Macrocytes > 15/HPF(A) [facility] Elliptocytes 3-7/HPF(A) [facility] Target cells 3-7/HPF(A) [facility] Platelet estimate Automated Count Confirmed [facility] Blood 03/04/2024 5:11 AM CDT 03/04/2024 5:26 AM CDT us Osmar Orta MD LAB BLOOD ORDERABLES Final R esult [facility] [address] [facility] Department of Laboratories [place], [place] [id number] * (ABNORMAL) CBC with auto differential (03/04/2024 5:11 AM CDT) WBC 17.0(H) 3.8 - 9.9 K/cumm Hgb 12.0(L) 13.0 - 17.5 g/dL [facility] Hct 35.6(L) 38.9 - 50.3 % [facility] Plt 321 150 - 400 K/cumm [facility] MPV 9.6 9.1 - 12.3 fL [facility] RBC 3.35(L) 4.30 - 5.80 M/cumm [facility] MCV 106.3(H) 81.3 - 96.4 fL [facility] MCH 35.8(H) 27.1 - 33.3 pg [facility] MCHC 33.7 32.3 - 35.7 g/dL [facility] RDW CV 17.7(H) 11.1 - 14.9 % [facility] RDW SD 68.4(H) 35.7 - 48.1 fL [facility] NRBC abs 0.51(H) 0.00 - 0.01 K/cumm [facility] Blood 03/04/2024 5:11 AM CDT 03/04/2024 5:26 AM CDT us Osmar Orta MD LAB BLOOD ORDERABLES Edited Result - Final [facility] [address] [facility] Department [place] [address] * (ABNORMAL) Comprehensive metabolic panel (03/04/2024 5:11 AM CDT) Sodium 136 135 - 145 mmol/L Potassium, pl 5.4(H) 3.3 - 4.9 mmol/L [facility] Comment:Hemolyzed; Potassium value may be falsely elevated by as much as 1.0 mmol/L. Suggest redraw and reanalysis. Chloride 98 97 - 110 mmol/L [facility] CO2 29 22 - 32 mmol/L [facility] Anion gap 9 2 - 15 mmol/L [facility] BUN 23 6 - 25 mg/dL [facility] Creatinine 0.96 0.80 - 1.30 mg/dL [facility] Glucose 145 70 - 199 mg/dL [facility] 2022. Calcium 9.2 8.5 - 10.3 mg/dL [facility] Bilirubin, total 0.2 0.1 - 1.2 mg/dL [facility] Protein, pl 7.4 6.5 - 8.5 g/dL [facility] Albumin 3.6 3.5 - 5.0 g/dL [facility] Alk phos 132(H) 40 - 130 Units/L [facility] ALT 26 7 - 55 Units/L [facility] AST 58(H) 10 - 50 Units/L [facility] Comment:Hemolyzed; result ma y be falsely elevated Blood 03/04/2024 5:11 AM CDT 03/04/2024 5:26 AM CDT us Osmar Orta MD LAB BLOOD ORDERABLES Final R esult [facility] [address] [facility] Department [place] [address] * eGFR (03/04/2024 12:05 AM [...] DO LAB BLOOD ORDERABLES Final Resul t [facility] [address] [facility] Department [place] [address] * (ABNORMAL) Basic metabolic panel (03/04/2024 12:05 AM CDT) Sodium 136 135 - 145 mmol/L Potassium, pl 5.1(H) 3.3 - 4.9 mmol/L [facility] Comment:Hemolyzed; Potassium value may be falsely elevated by as much as 1.0 mmol/L. Suggest redraw and reanalysis. Chloride 98 97 - 110 mmol/L [facility] CO2 27 22 - 32 mmol/L [facility] Anion gap 11 2 - 15 mmol/L [facility] BUN 25 6 - 25 mg/dL [facility] Creatinine 1.12 0.80 - 1.30 mg/dL [facility] Glucose 158 70 - 199 mg/dL [facility] Comment: Delta - Results Reviewed Interpretive [...] 2022. Calcium 9.2 8.5 - 10.3 mg/dL [facility] Blood 03/04/2024 12:0 5 AM CDT 03/04/2024 12:33 AM CDT Diana Rivera DO LAB BLOOD ORDERABLES Final Resul t Performing Organization Address [facility] de Phone Number [address] [address] * POCT glucose (03/03/2024 11:07 PM CDT) Glucose, POC 154 70 - 199 mg/dL Glucose comment 1 Use This Result [facility] Glucose comment 2 RN/MD Notified [facility] Blood 03/03/2024 11:0 7 PM CDT 03/03/2024 11:07 PM CDT Gianna Dey MD LAB POCT ORDERABLES - DEVICE Final Result Performing Organization Address [facility] de Phone Number [address] [address] * (ABNORMAL) POCT glucose (03/03/2024 7:06 PM CDT) Glucose, POC 225(H) 70 - 199 mg/dL Blood 03/03/2024 7:06 PM CDT 03/03/2024 7:06 PM CDT Gianna Dey MD LAB POCT ORDERABLES - DEVICE Final Result Performing Organization Address [facility] de Phone Number [address] [address] * Urinalysis reflex to microscopic (03/03/2024 6:14 PM CDT) Color, ur Straw Yellow Clarity, ur Clear Clear [facility] Specific gravity, ur 1.008 1.003 - 1.030 [facility] pH, urine 7.0 [facility] Comment: Interpretive Data ? Urine pH is affected by diet, medications, systemic acid-base disturbances, and renal tubular function. ??pH may affect urinary stone formation. ??For example, urine pH below 6.0 may help reduce the tendency for calcium phosphate stones and pH greater than 6.0 may reduce the tendency for uric acid stone formation. Source: [facility] Current Interpretive Data was last revised on 2017 Protein, ur ql Negative Negative [facility] Glucose, ur ql Negative Negative [facility] Ketones, ur Negative Negative [facility] Bilirubin, ur Negative Negative [facility] Blood, ur Negative Negative [facility] Urobilinogen, ur <2.0 <2.0 mg/dL [facility] Nitrite, ur Negative Negative [facility] Leukocyte esterase, ur Negative Negative [facility] UA reflex comment Reflex conditions for microscopic UA not met. [facility] Urine 03/03/2024 6:14 PM CDT 03/03/2024 6:38 PM CDT Osmar Orta MD LAB URINE ORDERABLES Final R esult Performing Organization Address [facility] Co de Phone Number [address] [employer] [place] [address] * POCT glucose (03/03/2024 5:05 PM CDT) Glucose, POC 183 70 - 199 mg/dL Glucose comment 1 Use This Result [facility] Blood 03/03/2024 5:05 PM CDT 03/03/2024 5:05 PM CDT us Gianna Dey MD LAB POCT ORDERABLES - DEVICE Final Result Performing Organization Address [facility] Co de Phone Number [address] [place] [address] * Blood culture Blood (03/03/2024 4:57 PM CDT) Report Final Report: No growth Comment:Testing performed by : [facility], [address] [facility], [place]., [address] Blood 03/03/2024 4:57 PM CDT 03/03/2024 7:51 [...] organism identification may be performed using the Ziarcoigene Gram-Positive Blood Culture Assay. This assay detects microbial DNA in positive blood culture broth via hybridization of target DNA to capture oligonucleotides on a microarray. This assay has been cleared by the [place] Food and Drug Administration and its performance characteristics have been verified by the [facility]. 5. ?For questions about this culture, contact the Microbiology Laboratory at [phone]. Interpretive data was last revised on 2020. Osmar Orta MD LAB MICROBIOLOGY - GENERAL O YONYERABLES Final Result [facility] [address] [facility] Department [place] [address] * Blood culture Blood Arm, left (03/03/2024 4:11 PM CDT) Report Final Report: No growth Comment:Testing performed by : [facility], [address] [facility], [place]., [address] Blood (Arm, left) 03/03/2024 4:11 PM CDT [...] organism identification may be performed using the Ziarcoigene Gram-Positive Blood Culture Assay. This assay detects microbial DNA in positive blood culture broth via hybridization of target DNA to capture oligonucleotides on a microarray. This assay has been cleared by the [place] Food and Drug Administration and its performance characteristics have been verified by the [facility]. 5. ?For questions about this culture, contact the Microbiology Laboratory at [phone]. Interpretive data was last revised on 2020. Osmar Orta MD LAB MICROBIOLOGY - GENERAL O RDERABLES Final Result [facility] [address] [facility] Department of Laboratories [place], [place] [id number] * MRSA Only (Staphylococcus aureus) PCR Nasal (03/03/2024 11:56 AM CDT) [facility] PCR Scrn, Methicillin resistant Staphylococcus aureus (MRSA) Not Detected Not Detected Comment: Interpretive Data Testing performed using Nucleic Acid Amplification with the [employer] Xpert MRSA NxG Assay. This assay detects target DNA from mecA, mecC and the SCCmec insertion site of Staphylococcus aureus using Real-Time PCR and has been cleared by the FDA. Performance characteristics have been verified by the [facility]. Current Interpretive Data was last revised on 2023 Nasal 03/03/2024 11:5 6 AM CDT 03/03/2024 12:24 PM CDT Osmar Orta MD LAB MICROBIOLOGY - GENERAL O RDERABLES Final Result Performing Organization Address [facility] Co de Phone Number [address] [address] * POCT glucose (03/03/2024 11:55 AM CDT) Glucose, POC 169 70 - 199 mg/dL Glucose comment 1 Use This Result [facility] Blood 03/03/2024 11:5 5 AM CDT 03/03/2024 11:55 AM CDT Gianna Dey MD LAB POCT ORDERABLES - DEVICE Final Result Performing Organization Address [facility] Co de Phone Number [address] [address] * POCT glucose (03/03/2024 7:38 AM CDT) Glucose, POC 172 70 - 199 mg/dL Glucose comment 1 Use This Result [facility] Blood 03/03/2024 7:38 AM CDT 03/03/2024 7:38 AM CDT Gianna Dey MD LAB POCT ORDERABLES - DEVICE Final Result Performing Organization Address City/[facility] Co de Phone Number [address] [address] * POCT glucose (03/03/2024 5:53 AM CDT) Glucose, POC 96 70 - 199 mg/dL Glucose comment 1 Use This Result [facility] Blood 03/03/2024 5:53 AM CDT 03/03/2024 5:53 AM CDT Gianna Dey MD LAB POCT ORDERABLES - DEVICE Final Result Performing Organization Address City/[facility]/ZIP Co de Phone Number [facility] [address] [place] [address] * POCT glucose (03/03/2024 4:30 AM CDT) Pathologist [facility] Glucose, POC 112 70 - 199 mg/dL Glucose comment 1 Use This Result [facility] Blood 03/03/2024 4:30 AM CDT 03/03/2024 4:30 AM CDT Gianna Dey MD LAB POCT ORDERABLES - DEVICE Final Result Performing Organization Address [facility] Co de Phone Number ZULEMA [address] [address] * eGFR (03/03/2024 4:23 AM CDT) Pathologist [facility] [...] MD LAB BLOOD ORDERABLES Final R esult [facility] [address] [facility] Department [place] [address] * (ABNORMAL) Manual Differential (03/03/2024 4:23 AM CDT) Differential Manual Cells Counted 100 [facility] Neutrophil abs 11.0(H) 1.5 - 6.5 K/cumm [facility] Lymphocyte abs 8.1(H) 0.8 - 3.3 K/cumm [facility] Monocyte abs 1.7(H) 0.2 - 0.8 K/cumm [facility] Neutrophil pct 53.0 % [facility] Comment: Interpretive Data Percent cell count reference ranges are not reported, since discordance with absolute values may lead to misinterpretation of CBC data. Current Interpretive Data was last revised on 2018. Lymphocyte pct 39.0 % [facility] Comment: Interpretive Data Percent cell count reference ranges are not reported, since discordance with absolute values may lead to misinterpretation of CBC data. Current Interpretive Data was last revised on 2018. Monocyte pct 8.0 % [facility] Comment: Interpretive Data Percent cell count reference ranges are not reported, since discordance with absolute values may lead to misinterpretation of CBC data. Current Interpretive Data was last revised on 2018. RBC morphology Consistent with RBC Indicies [facility] Platelet estimate Automated Count Confirmed [facility] Blood 03/03/2024 4:2 3 AM CDT 03/03/2024 5:21 AM CDT us Osmar Orta MD LAB BLOOD ORDERABLES Final R esult [facility] [address] [facility] Department [place] [address] * (ABNORMAL) Comprehensive metabolic panel (03/03/2024 4:23 [...] 15 mmol/L [facility] BUN 26(H) 6 - 25 mg/dL [facility] Creatinine 0.82 0.80 - 1.30 mg/dL [facility] Glucose 53(C) 70 - 199 mg/dL [facility] Comment: Delta - Results Reviewed ??Critical Result called to and read back by [email or web address], DATE: 2024-03-03 06:18:02 BY: [email or web address] Interpretive Data Fasting glucose >/= 126 mg/dl [...] 2022. Calcium 9.0 8.5 - 10.3 mg/dL [facility] Bilirubin, total 0.2 0.1 - 1.2 mg/dL [facility] Protein, pl 6.7 6.5 - 8.5 g/dL [facility] Albumin 3.6 3.5 - 5.0 g/dL [facility] Alk phos 122 40 - 130 Units/L [facility] ALT 18 7 - 55 Units/L [facility] AST 56(H) 10 - 50 Units/L [facility] Comment:Hemolyzed; result ma y be falsely elevated Blood 03/03/2024 4:23 AM CDT 03/03/2024 5:21 AM CDT Osmar Orta MD LAB BLOOD ORDERABLES Final R esult Performing Organization Address [facility] Co de Phone Number [facility] [address] [place] [address] * (ABNORMAL) CBC with auto differential (03/03/2024 4:23 AM CDT) [facility] WBC 20.8(H) 3.8 - 9.9 K/cumm Hgb 11.6(L) 13.0 - 17.5 g/dL [facility] Hct 36.1(L) 38.9 - 50.3 % [facility] Plt 324 150 - 400 K/cumm [facility] MPV 9.9 9.1 - 12.3 fL [facility] RBC 3.31(L) 4.30 - 5.80 M/cumm [facility] MCV 109.1(H) 81.3 - 96.4 fL [facility] MCH 35.0(H) 27.1 - 33.3 pg [facility] MCHC 32.1(L) 32.3 - 35.7 g/dL [facility] RDW CV 17.6(H) 11.1 - 14.9 % [facility] RDW SD 70.2(H) 35.7 - 48.1 fL [facility] NRBC abs 0.63(H) 0.00 - 0.01 K/cumm [facility] Blood 03/03/2024 4:23 AM CDT 03/03/2024 5:21 AM CDT Osmar Orta MD LAB BLOOD ORDERABLES Final R esult Performing Organization Address City/[facility]/ZIP Co de Phone Number [facility] [address] [place] [address] * POCT glucose (03/03/2024 12:54 AM CDT) Glucose, POC 157 70 - 199 mg/dL Glucose comment 1 Use This Result [facility] Blood 03/03/2024 12:5 4 AM CDT 03/03/2024 12:54 AM CDT Gianna Dey MD LAB POCT ORDERABLES - DEVICE Final Result Performing Organization Address [facility] de Phone Number [address] [place] [address] * POCT glucose (03/02/2024 7:14 PM CDT) Glucose, POC 170 70 - 199 mg/dL Glucose comment 1 Use This Result [facility] Blood 03/02/2024 7:14 PM CDT 03/02/2024 7:14 PM CDT Gianna Dey MD LAB POCT ORDERABLES - DEVICE Final Result Performing Organization Address [facility] de Phone Number [address] [address] * CT Chest WO Contrast (03/02/2024 6:51 [...] findings. FINDINGS: LUNGS: ??Coarse opacity in the crclv-wmmaolx-szuj-upper lungs are new since 04/03/2022, superimposed on [...] ??Unremarkable. ?? IMPRESSION: Coarse opacities in the kfnmo-agqrqwo-umki-upper lungs are new since 04/03/2022, favored to [...] D: ??03/02/2024 7:43 PM T: Report ID: [id number] Reading Location: ??[id number] Procedure Note Kaushik Nur MD - 03/02/2024 [...] findings. FINDINGS: LUNGS: Coarse opacity in the dkbss-wcisylb-vanq-upper lungs are new since 04/03/2022, superimposed on [...] WALL: Unremarkable. IMPRESSION: Coarse opacities in the cotzx-ziobmtq-fwab-upper lungs are new since 04/03/2022, favored to [...] Kaushik Nur M.D. AR T: Report ID: [id number] Reading Location: [place] [address] Osmar Orta MD IMG CT PROCEDURES Final Resu lt * (ABNORMAL) POCT glucose (03/02/2024 4:56 PM CDT) Glucose, POC 308(H) 70 - 199 mg/dL Glucose comment 1 Use This Result [facility] Glucose comment 2 RN/MD Notified [facility] Blood 03/02/2024 4:56 PM CDT 03/02/2024 4:56 PM CDT Gianna Dey MD LAB POCT ORDERABLES - DEVICE Final Result Performing Organization Address [facility] de Phone Number [address] [place] [address] * (ABNORMAL) POCT glucose (03/02/2024 12:48 PM CDT) Glucose, POC 335(H) 70 - 199 mg/dL Glucose comment 1 Use This Result [facility] Glucose comment 2 RN/ Notified [facility] Blood 03/02/2024 12:4 8 PM CDT 03/02/2024 12:48 PM CDT Gianna Dey MD LAB POCT ORDERABLES - DEVICE Final Result Performing Organization Address [facility] Co de Phone Number [address] [place] [address] * POCT glucose (03/02/2024 8:07 AM CDT) Glucose, POC 121 70 - 199 mg/dL Glucose comment 1 Use This Result [facility] Glucose comment 2 RN/ Notified [facility] Blood 03/02/2024 8:07 AM CDT 03/02/2024 8:07 AM CDT us Gianna Dey MD LAB POCT ORDERABLES - DEVICE Final Result Performing Organization Address City/[facility]/ZIP Co de Phone Number [facility] CHAVEZ [address] [facility] Department [place] [address] * (ABNORMAL) Manual Differential (03/02/2024 5:24 AM CDT) Differential Manual Cells Counted 100 [facility] Neutrophil abs 8.3(H) 1.5 - 6.5 K/cumm [facility] Lymphocyte abs 7.6(H) 0.8 - 3.3 K/cumm [facility] Monocyte abs 0.3 0.2 - 0.8 K/cumm [facility] Neutrophil pct 51.0 % [facility] Comment: Interpretive Data Percent cell count reference ranges are not reported, since discordance with absolute values may lead to misinterpretation of CBC data. Current Interpretive Data was last revised on 2018. Lymphocyte pct 47.0 % [facility] Comment: Interpretive Data Percent cell count reference ranges are not reported, since discordance with absolute values may lead to misinterpretation of CBC data. Current Interpretive Data was last revised on 2018. Monocyte pct 2.0 % [facility] Comment: Interpretive Data Percent cell count reference ranges are not reported, since discordance with absolute values may lead to misinterpretation of CBC data. Current Interpretive Data was last revised on 2018. RBC morphology Present(A) [facility] Polychromasia 3-7/HPF(A) [facility] Hypochromasia 3-7/HPF(A) [facility] Anisocytosis Slight(A) [facility] Macrocytes 3-7/HPF(A) [facility] Teardrop cells 3-7/HPF(A) [facility] [employer] Present(A) [facility] Platelet estimate Adequate [facility] Blood 03/02/2024 5:24 AM CDT 03/02/2024 5:48 AM CDT us Diana Rivera DO LAB BLOOD ORDERABLES Final Resul t Performing Organization Address City/[facility]/ZIP Co de Phone Number [facility] CHAVEZ [address] [facility] [place] [address] * (ABNORMAL) CBC without differential (03/02/2024 5:24 AM CDT) [facility] WBC 16.2(H) 3.8 - 9.9 K/cumm Hgb 11.4(L) 13.0 - 17.5 g/dL [facility] Hct 35.2(L) 38.9 - 50.3 % [facility] Plt 346 150 - 400 K/cumm [facility] MPV 9.8 9.1 - 12.3 fL [facility] RBC 3.24(L) 4.30 - 5.80 M/cumm [facility] MCV 108.6(H) 81.3 - 96.4 fL [facility] MCH 35.2(H) 27.1 - 33.3 pg [facility] MCHC 32.4 32.3 - 35.7 g/dL [facility] RDW CV 17.2(H) 11.1 - 14.9 % [facility] RDW SD 68.5(H) 35.7 - 48.1 fL [facility] NRBC abs 0.37(H) 0.00 - 0.01 K/cumm [facility] Blood 03/02/2024 5:24 AM CDT 03/02/2024 5:48 AM CDT us Diana Rivera DO LAB BLOOD ORDERABLES Edited Resu lt - Final [facility] [address] [facility] [place] [address] * eGFR (03/01/2024 11:38 PM CDT) [facility] eGFR >90 >=60 mL/min/1. 73 m2 Comment: [...] DO LAB BLOOD ORDERABLES Final Resul t [facility] [address] [facility] [place] [address] * Basic metabolic panel (03/01/2024 11:38 PM CDT) Sodium 137 135 - 145 mmol/L Potassium, pl 4.2 3.3 - 4.9 mmol/L [facility] Chloride 101 97 - 110 mmol/L [facility] CO2 29 22 - 32 mmol/L [facility] Anion gap 7 2 - 15 mmol/L [facility] BUN 24 6 - 25 mg/dL [facility] Creatinine 0.82 0.80 - 1.30 mg/dL [facility] Glucose 159 70 - 199 mg/dL [facility] ORDERABLES Final Resul t Performing Organization Address City/[facility] Co de Phone Number ZULEMA [address] [place] [address] * POCT glucose (03/01/2024 10:22 PM CDT) Glucose, POC 150 70 - 199 mg/dL Blood 03/01/2024 10:2 2 PM CDT 03/01/2024 10:22 PM CDT Gianna Dey MD LAB POCT ORDERABLES - DEVICE Final Result Performing Organization Address [facility] Co de Phone Number [address] [place] [address] * (ABNORMAL) POCT glucose (03/01/2024 7:23 PM CDT) Glucose, POC 332(H) 70 - 199 mg/dL Glucose comment 1 Use This Result [facility] Blood 03/01/2024 7:23 PM CDT 03/01/2024 7:23 PM CDT Gianna Dey MD LAB POCT ORDERABLES - DEVICE Final Result Performing Organization Address City/[facility] Co de Phone Number [address] [place] [address] * (ABNORMAL) POCT glucose (03/01/2024 4:53 PM CDT) Glucose, POC 344(H) 70 - 199 mg/dL Glucose comment 1 Use This Result [facility] Glucose comment 2 RN/ Notified [facility] Blood 03/01/2024 4:53 PM CDT 03/01/2024 4:53 PM CDT Gianna Dey MD LAB POCT ORDERABLES - DEVICE Final Result [address] [place] [address] * POCT glucose (03/01/2024 11:52 AM CDT) Glucose, POC 178 70 - 199 mg/dL Glucose comment 1 Use This Result [facility] Glucose comment 2 RN/ Notified [facility] Blood 03/01/2024 11:5 2 AM CDT 03/01/2024 11:52 AM CDT Gianna Dey MD LAB POCT ORDERABLES - DEVICE Final Result Performing Organization Address [facility] Co de Phone Number [address] [place] [address] * (ABNORMAL) POCT glucose (03/01/2024 8:02 AM CDT) Glucose, POC 226(H) 70 - 199 mg/dL Glucose comment 1 Use This Result [facility] Glucose comment 2 RN/ Notified [facility] Blood 03/01/2024 8:02 AM CDT 03/01/2024 8:02 AM CDT Gianna Dey MD LAB POCT ORDERABLES - DEVICE Final Result Performing Organization Address City/[facility]/ZIP Co de Phone Number [address] [place] [address] * (ABNORMAL) POCT glucose (03/01/2024 3:46 AM CDT) Glucose, POC 202(H) 70 - 199 mg/dL Glucose comment 1 Use This Result [facility] Glucose comment 2 RN/MD Notified [facility] Blood 03/01/2024 3:46 AM CDT 03/01/2024 3:46 AM CDT Saim Rivera DO LAB POCT ORDERABLES - DEVICE Fin al Result Performing Organization Address [facility] Co de Phone Number LESLIE[address] [place] [address] * POCT glucose (03/01/2024 12:02 AM CDT) Glucose, POC 173 70 - 199 mg/dL Blood 03/01/2024 12:0 2 AM CDT 03/01/2024 12:02 AM CDT Saim Rivera DO LAB POCT ORDERABLES - DEVICE Fin al Result Performing Organization Address [facility] Co de Phone Number [address] [place] [address] * POCT glucose (02/29/2024 7:30 PM CDT) Glucose, POC 164 70 - 199 mg/dL Glucose comment 1 Use This Result [facility] Blood 02/29/2024 7:30 PM CDT 02/29/2024 7:30 PM CDT SaROOOMERSafa DO LAB POCT ORDERABLES - DEVICE Fin al Result Performing Organization Address City/[facility] Co de Phone Number [address] [place] [address] * (ABNORMAL) POCT glucose (02/29/2024 6:12 PM CDT) Glucose, POC 254(H) 70 - 199 mg/dL Blood 02/29/2024 6:12 PM CDT 02/29/2024 6:12 PM CDT Saim Rivera DO LAB POCT ORDERABLES - DEVICE Fin al Result Performing Organization Address [facility] [facility] de Phone Number [address] [place] [address] * (ABNORMAL) POCT glucose (02/29/2024 4:33 PM CDT) Glucose, POC 373(H) 70 - 199 mg/dL Blood 02/29/2024 4:33 PM CDT 02/29/2024 4:33 PM CDT [facility] Rivera DO LAB POCT ORDERABLES - DEVICE Fin al Result Performing Organization Address [facility] de Phone Number [address] [place] [address] * POCT glucose (02/29/2024 11:20 AM CDT) Pathologist [facility] [place] Glucose, POC 144 70 - 199 mg/dL Blood 02/29/2024 11:2 0 AM CDT 02/29/2024 11:20 AM CDT [facility] Rivera DO LAB POCT ORDERABLES - DEVICE Fin al Result Performing Organization Address [facility] de Phone Number [address] [place] [address] * (ABNORMAL) CBC without differential (02/29/2024 7:34 AM CDT) Pathologist [facility] [place] WBC 12.4(H) 3.8 - 9.9 K/cumm Hgb 11.2(L) 13.0 - 17.5 g/dL [facility] Hct 34.0(L) 38.9 - 50.3 % [facility] Plt 365 150 - 400 K/cumm [facility] MPV 9.9 9.1 - 12.3 fL [facility] RBC 3.17(L) 4.30 - 5.80 M/cumm [facility] MCV 107.3(H) 81.3 - 96.4 fL [facility] MCH 35.3(H) 27.1 - 33.3 pg [facility] MCHC 32.9 32.3 - 35.7 g/dL [facility] RDW CV 17.2(H) 11.1 - 14.9 % [facility] RDW SD 67.0(H) 35.7 - 48.1 fL [facility] NRBC abs 0.27(H) 0.00 - 0.01 K/cumm [facility] Blood 02/29/2024 7:34 AM CDT 02/29/2024 8:13 AM CDT Josefa Taylor NP LAB BLOOD ORDERABLES Pilar l Result Performing Organization Address City/[facility]/ZIP Co de Phone Number [address] [employer] [place] [address] * POCT glucose (02/29/2024 7:18 AM CDT) Glucose, POC 123 70 - 199 mg/dL Blood 02/29/2024 7:18 AM CDT 02/29/2024 7:18 AM CDT Diana Rivera DO LAB POCT ORDERABLES - DEVICE Fin al Result Performing Organization Address [facility] Co de Phone Number [address] [place] [address] * POCT glucose (02/29/2024 2:06 AM CDT) Glucose, POC 150 70 - 199 mg/dL Glucose comment 1 Use This Result [facility] Glucose comment 2 RN/MD Notified [facility] Blood 02/29/2024 2:06 AM CDT 02/29/2024 2:06 AM CDT us Saim Rivera DO LAB POCT ORDERABLES - DEVICE Fin al Result Performing Organization Address [facility] de Phone Number ZULEMA [address] [address] * POCT glucose (02/29/2024 1:00 AM CDT) Glucose, POC 100 70 - 199 mg/dL Blood 02/29/2024 1:00 AM CDT 02/29/2024 1:00 AM CDT us Saim Rivera DO LAB POCT ORDERABLES - DEVICE Fin al Result Performing Organization Address [facility] de Phone Number ZULEMA [address] [address] * (ABNORMAL) POCT glucose (02/29/2024 12:43 AM CDT) Glucose, POC 59(L) 70 - 199 mg/dL Blood 02/29/2024 12:4 3 AM CDT 02/29/2024 12:43 AM CDT us Saim Rivera DO LAB POCT ORDERABLES - DEVICE Fin al Result Performing Organization Address [facility] de Phone Number ZULEMA [address] [address] * (ABNORMAL) POCT glucose (02/29/2024 12:08 AM CDT) Glucose, POC 56(L) 70 - 199 mg/dL Glucose comment 1 Use This Result ZULEMA Glucose comment 2 RN/MD Notified ZULEMA Blood 02/29/2024 12:0 8 AM CDT 02/29/2024 12:08 AM CDT us Saim Rivera DO LAB POCT ORDERABLES - DEVICE Fin al Result Performing Organization Address [facility] Co de Phone Number ZULEMA [address] [address] * (ABNORMAL) POCT glucose (02/28/2024 8:40 PM CDT) Glucose, POC 296(H) 70 - 199 mg/dL Glucose comment 1 Use This Result [facility] Glucose comment 2 RN/MD Notified ZULEMA Blood 02/28/2024 8:40 PM CDT 02/28/2024 8:40 PM CDT us Saim Rivera DO LAB POCT ORDERABLES - DEVICE Fin al Result Performing Organization Address [facility] Co de Phone Number LESLIE[address] [address] * (ABNORMAL) POCT glucose (02/28/2024 4:55 PM CDT) Glucose, POC 248(H) 70 - 199 mg/dL Glucose comment 1 Use This Result ZULEMA Blood 02/28/2024 4:55 PM CDT 02/28/2024 4:55 PM CDT us Saim Rivera DO LAB POCT ORDERABLES - DEVICE Fin al Result Performing Organization Address [facility] Co de Phone Number LESLIE[address] [place] [address] * POCT glucose (02/28/2024 12:39 PM CDT) Glucose, POC 163 70 - 199 mg/dL Glucose comment 1 Use This Result ZULEMA Blood 02/28/2024 12:3 9 PM CDT 02/28/2024 12:39 PM CDT us Saim Rivera DO LAB POCT ORDERABLES - DEVICE Fin al Result Performing Organization Address City/[facility] Co de Phone Number [address] [place] [address] * POCT glucose (02/28/2024 12:02 PM CDT) Glucose, POC 173 70 - 199 mg/dL Blood 02/28/2024 12:0 2 PM CDT 02/28/2024 12:02 PM CDT us Diana Rivera DO LAB POCT ORDERABLES - DEVICE Fin al Result ZULEMA [facility] Department [place] [address] * EGD (02/28/2024 11:38 AM CDT) Anatomical Region Laterality Modality Other Narrative Procedure Note Gee Mcdaniel MD - 02/28/2024 11:38 AM CDT [facility] GI ENDOSCOPY Patient Name: Bri Jones Procedure Date: 02/28/2024 11:38 AM Date of : 1965 Admit Type: Inpatient Age: 58 Gender: Male Attending MD: Gee Ravi M.D. Room: [facility] ENDOSCOPY ROOM [facility] Note Status: Finalized Procedure: Upper GI [...] On: 02/28/2024 11:38 AM Recognized by the [employer] for promoting quality in endoscopy Gee Mcdaniel MD ENDOSCOPY P ROCEDURES Final Result * POCT glucose (02/28/2024 8:02 AM CDT) Glucose, POC 118 70 - 199 mg/dL Glucose comment 1 Use This Result ZULEMA Blood 02/28/2024 8:02 AM CDT 02/28/2024 8:02 AM CDT Diana Rivera DO LAB POCT ORDERABLES - DEVICE Fin al Result ZULEMA [address] [facility] Department [place] [address] * (ABNORMAL) Lipid panel (02/28/2024 [...] ORDERABLES Final Resul t Performing Organization Address City/[facility]/ZIP Co de Phone Number ZULEMA [address] [place] [address] * eGFR (02/28/2024 5:26 AM CDT) [facility] eGFR >90 >=60 mL/min/1. 73 m2 Comment: [...] LAB BLOOD ORDERABLES Final Resul t ZULEMA [facility] [place] [address] * (ABNORMAL) Basic metabolic panel (02/28/2024 5:26 AM CDT) [facility] Sodium 136 135 - 145 mmol/L Potassium, pl 4.3 3.3 - 4.9 mmol/L [facility] Comment:Hemolyzed; Potassium value may be falsely elevated by as much as 1.0 mmol/L. Suggest redraw and reanalysis. Chloride 98 97 - 110 mmol/L [facility] CO2 28 22 - 32 mmol/L [facility] Anion gap 10 2 - 15 mmol/L [facility] BUN 28(H) 6 - 25 mg/dL [facility] Creatinine 0.78(L) 0.80 - 1.30 mg/dL [facility] Glucose 164 70 - 199 mg/dL [facility] [...] 2022. Calcium 8.7 8.5 - 10.3 mg/dL [facility] Blood 02/28/2024 5:26 AM CDT 02/28/2024 6:30 AM CDT us Diana Rivera DO LAB BLOOD ORDERABLES Final Resul t [facility] [address] [facility] Department [place] [address] * (ABNORMAL) CBC without differential (02/28/2024 5:26 AM CDT) [facility] WBC 13.6(H) 3.8 - 9.9 K/cumm Hgb 11.4(L) 13.0 - 17.5 g/dL [facility] Hct 33.9(L) 38.9 - 50.3 % [facility] Plt 378 150 - 400 K/cumm [facility] MPV 9.8 9.1 - 12.3 fL [facility] RBC 3.26(L) 4.30 - 5.80 M/cumm [facility] MCV 104.0(H) 81.3 - 96.4 fL [facility] MCH 35.0(H) 27.1 - 33.3 pg [facility] MCHC 33.6 32.3 - 35.7 g/dL [facility] RDW CV 16.5(H) 11.1 - 14.9 % [facility] RDW SD 62.6(H) 35.7 - 48.1 fL [facility] NRBC abs 0.42(H) 0.00 - 0.01 K/cumm [facility] Blood 02/28/2024 5:26 AM CDT 02/28/2024 6:30 AM CDT Josefa Taylor SYSTEM ADMINISTRATION ADVISOR LAB BLOOD ORDERABLES Pilar l Result Performing Organization Address City/[facility] Co de Phone Number [address] [employer] [place] [address] * POCT glucose (02/28/2024 4:09 AM CDT) Glucose, POC 184 70 - 199 mg/dL Glucose comment 1 Use This Result [facility] Glucose comment 2 RN/MD Notified [facility] Blood 02/28/2024 4:09 AM CDT 02/28/2024 4:09 AM CDT Diana Rivera DO LAB POCT ORDERABLES - DEVICE Fin al Result Performing Organization Address City/[facility]/ZIP Co de Phone Number [address] [employer] [place] [address] * (ABNORMAL) POCT glucose (02/28/2024 4:08 AM CDT) Glucose, POC 202(H) 70 - 199 mg/dL Blood 02/28/2024 4:08 AM CDT 02/28/2024 4:08 AM CDT us Saim Rivera DO LAB POCT ORDERABLES - DEVICE Fin al Result Performing Organization Address [facility] Co de Phone Number ZULEMA [address] [address] * POCT glucose (02/28/2024 12:34 AM CDT) Glucose, POC 132 70 - 199 mg/dL Glucose comment 1 Use This Result [facility] Glucose comment 2 RN/MD Notified ZULEMA Blood 02/28/2024 12:3 4 AM CDT 02/28/2024 12:34 AM CDT us Saim Rivera DO LAB POCT ORDERABLES - DEVICE Fin al Result Performing Organization Address [facility] Co de Phone Number ZULEMA [address] [place] [address] * POCT glucose (02/27/2024 11:46 PM CDT) Glucose, POC 97 70 - 199 mg/dL Glucose comment 1 Use This Result [facility] Glucose comment 2 RN/ Notified ZULEMA Blood 02/27/2024 11:4 6 PM CDT 02/27/2024 11:46 PM CDT us Saim Rivera DO LAB POCT ORDERABLES - DEVICE Fin al Result Performing Organization Address City/[facility] Co de Phone Number ZULEMA [address] [place] [address] * POCT glucose (02/27/2024 11:17 PM CDT) Glucose, POC 128 70 - 199 mg/dL Glucose comment 1 Use This Result [facility] Glucose comment 2 RN/MD Notified ZULEMA Blood 02/27/2024 11:1 7 PM CDT 02/27/2024 11:17 PM CDT us Saim Rivera DO LAB POCT ORDERABLES - DEVICE Fin al Result Performing Organization Address [facility] Co de Phone Number ZULEMA [address] [facility] [place] [address] * (ABNORMAL) POCT glucose (02/27/2024 8:56 PM CDT) Glucose, POC 340(H) 70 - 199 mg/dL Glucose comment 1 Use This Result [facility] Glucose comment 2 RN/MD Notified [facility] Blood 02/27/2024 8:56 PM CDT 02/27/2024 8:56 PM CDT Diana Rivera DO LAB POCT ORDERABLES - DEVICE Fin al Result Performing Organization Address [facility] Co de Phone Number ZULEMA [address] [facility] [place] [address] * XR Chest PA Lateral 2 Views (02/27/2024 6:05 PM CDT) Anatomical Region Laterality Modality Body, Chest N/A Computed Radiogr aphy 02/28/2024 5:50 AM CDT Narrative 02/28/2024 5:53 AM CDT EXAM DESCRIPTION: XR CHEST PA LATERAL 2 VIEWS REASON FOR STUDY: Immunosuppressed state pneumoniae ?? Evaluate immunosupressed pneumoniae. ?? TECHNIQUE: PA and lateral ??radiographic view(s) of the chest. COMPARISON: [id number]. FINDINGS: LUNGS: ??There is apical opacity on [...] D: ??02/28/2024 5:53 AM T: Report ID: [id number] Reading Location: ??[id number] Procedure Note Vianey Mares MD - 02/28/2024 EXAM DESCRIPTION: XR CHEST PA LATERAL 2 VIEWS REASON FOR STUDY: Immunosuppressed state pneumoniae Evaluate immunosupressed pneumoniae. TECHNIQUE: PA and lateral radiographic view(s) of the chest. COMPARISON: [id number]. FINDINGS: LUNGS: There is apical opacity on [...] Vianey Mares M.D. TW T: Report ID: [id number] Reading Location: [id number] us Osmar Orta MD IMG XR PROCEDURES Final Resu lt * POCT glucose (02/27/2024 5:04 PM CDT) Glucose, POC 123 70 - 199 mg/dL Blood 02/27/2024 5:04 PM CDT 02/27/2024 5:04 PM CDT us Diana Rivera DO LAB POCT ORDERABLES - DEVICE Fin al Result ZULEMA [address] [place] [address] * POCT glucose (02/27/2024 12:01 PM CDT) [facility] Glucose, POC 151 70 - 199 mg/dL Blood 02/27/2024 12:0 1 PM CDT 02/27/2024 12:01 PM CDT Saim Rivera DO LAB POCT ORDERABLES - DEVICE Fin al Result Performing Organization Address City/[facility] Co de Phone Number [address] [address] * (ABNORMAL) POCT glucose (02/27/2024 8:00 AM CDT) [facility] Glucose, POC 59(L) 70 - 199 mg/dL Blood 02/27/2024 8:00 AM CDT 02/27/2024 8:00 AM CDT [facility] Rivera LAB POCT ORDERABLES - DEVICE Fin al Result Performing Organization Address [facility] Co de Phone Number [address] [address] * (ABNORMAL) CBC without differential (02/27/2024 6:10 AM CDT) [facility] WBC 14.4(H) 3.8 - 9.9 K/cumm Hgb 10.4(L) 13.0 - 17.5 g/dL [facility] Hct 31.7(L) 38.9 - 50.3 % [facility] Plt 358 150 - 400 K/cumm [facility] MPV 9.9 9.1 - 12.3 fL [facility] RBC 3.05(L) 4.30 - 5.80 M/cumm [facility] MCV 103.9(H) 81.3 - 96.4 fL [facility] MCH 34.1(H) 27.1 - 33.3 pg [facility] MCHC 32.8 32.3 - 35.7 g/dL [facility] RDW CV 16.3(H) 11.1 - 14.9 % [facility] RDW SD 62.5(H) 35.7 - 48.1 fL [facility] NRBC abs 0.44(H) 0.00 - 0.01 K/cumm [facility] Blood 02/27/2024 6:10 AM CDT 02/27/2024 6:20 AM CDT Josefa Taylor SYSTEM ADMINISTRATION ADVISOR LAB BLOOD ORDERABLES Pilar l Result Performing Organization Address [facility] Co de Phone Number [address] [place] [address] * POCT glucose (02/27/2024 3:51 AM CDT) Glucose, POC 148 70 - 199 mg/dL Glucose comment 1 Use This Result [facility] Glucose comment 2 RN/MD Notified [facility] Blood 02/27/2024 3:51 AM CDT 02/27/2024 3:51 AM CDT Saim Rivera DO LAB POCT ORDERABLES - DEVICE Fin al Result Performing Organization Address [facility] de Phone Number [address] [place] [address] * POCT glucose (02/27/2024 2:15 AM CDT) Glucose, POC 87 70 - 199 mg/dL Glucose comment 1 Use This Result [facility] Glucose comment 2 RN/MD Notified [facility] Blood 02/27/2024 2:15 AM CDT 02/27/2024 2:15 AM CDT Saim Rivera DO LAB POCT ORDERABLES - DEVICE Fin al Result Performing Organization Address City/[facility] Co de Phone Number [address] [place] [address] * POCT glucose (02/26/2024 11:49 PM CDT) Glucose, POC 178 70 - 199 mg/dL Glucose comment 1 Use This Result [facility] Glucose comment 2 RN/MD Notified ZULEMA Blood 02/26/2024 11:4 9 PM CDT 02/26/2024 11:49 PM CDT Saim Rivera DO LAB POCT ORDERABLES - DEVICE Fin al Result Performing Organization Address City/[facility] Co de Phone Number ZULEMA [address] [place] [address] * POCT glucose (02/26/2024 8:36 PM CDT) Glucose, POC 190 70 - 199 mg/dL Glucose comment 1 Use This Result [facility] Glucose comment 2 RN/MD Notified [facility] Blood 02/26/2024 8:36 PM CDT 02/26/2024 8:36 PM CDT Saim Rivera DO LAB POCT ORDERABLES - DEVICE Fin al Result Performing Organization Address [facility] de Phone Number LESLIE[address] [place] [address] * (ABNORMAL) POCT glucose (02/26/2024 4:39 PM CDT) Glucose, POC 384(H) 70 - 199 mg/dL Glucose comment 1 Use This Result [facility] Blood 02/26/2024 4:39 PM CDT 02/26/2024 4:39 PM CDT Saim Rivera DO LAB POCT ORDERABLES - DEVICE Fin al Result Performing Organization Address City/[facility] de Phone Number LESLIE[address] [place] [address] * POCT glucose (02/26/2024 11:39 AM CDT) Glucose, POC 97 70 - 199 mg/dL Glucose comment 1 Use This Result ZULEMA Blood 02/26/2024 11:3 9 AM CDT 02/26/2024 11:39 AM CDT Saim Rivera DO LAB POCT ORDERABLES - DEVICE Fin al Result Performing Organization Address [facility] Co de Phone Number ZULEMA [address] [place] [address] * POCT glucose (02/26/2024 10:53 AM CDT) Glucose, POC 111 70 - 199 mg/dL Glucose comment 1 Use This Result [facility] Blood 02/26/2024 10:5 3 AM CDT 02/26/2024 10:53 AM CDT Saim Rivera DO LAB POCT ORDERABLES - DEVICE Fin al Result Performing Organization Address [facility] de Phone Number LESLIE[address] [place] [address] * (ABNORMAL) POCT glucose (02/26/2024 10:30 AM CDT) Glucose, POC 61(L) 70 - 199 mg/dL Glucose comment 1 Use This Result [facility] Glucose comment 2 RN/MD Notified ZULEMA Blood 02/26/2024 10:3 0 AM CDT 02/26/2024 10:30 AM CDT Saim Rivera DO LAB POCT ORDERABLES - DEVICE Fin al Result Performing Organization Address [facility] Co de Phone Number LESLIE[address] [place] [address] * POCT glucose (02/26/2024 7:34 AM CDT) Glucose, POC 163 70 - 199 mg/dL Glucose comment 1 Use This Result [facility] Blood 02/26/2024 7:34 AM CDT 02/26/2024 7:34 AM CDT us Savalencia Rivera DO LAB POCT ORDERABLES - DEVICE Fin al Result Performing Organization Address [facility] Co de Phone Number ZULEMA [address] Department [place] [address] * eGFR (02/26/2024 5:42 AM CDT) eGFR [...] ORDERABLES Pilar l Result Performing Organization Address [facility]/ZIP Co de Phone Number ZULEMA [address] Department [place] [address] * (ABNORMAL) CBC without differential (02/26/2024 5:42 AM CDT) [facility] WBC 13.4(H) 3.8 - 9.9 K/cumm Hgb 11.6(L) 13.0 - 17.5 g/dL [facility] Hct 34.7(L) 38.9 - 50.3 % [facility] Plt 418(H) 150 - 400 K/cumm [facility] MPV 10.1 9.1 - 12.3 fL [facility] RBC 3.31(L) 4.30 - 5.80 M/cumm [facility] MCV 104.8(H) 81.3 - 96.4 fL [facility] MCH 35.0(H) 27.1 - 33.3 pg [facility] MCHC 33.4 32.3 - 35.7 g/dL [facility] RDW CV 16.2(H) 11.1 - 14.9 % [facility] RDW SD 62.5(H) 35.7 - 48.1 fL [facility] NRBC abs 0.25(H) 0.00 - 0.01 K/cumm [facility] Blood 02/26/2024 5:42 AM CDT 02/26/2024 6:49 AM CDT Josefa Taylor NP LAB BLOOD ORDERABLES Pilar armas Result ZULEMA [facility] Department [place] [address] * Basic metabolic panel (02/26/2024 5:42 AM CDT) [facility] Sodium 139 135 - 145 mmol/L Potassium, pl 3.6 3.3 - 4.9 mmol/L [facility] Chloride 99 97 - 110 mmol/L [facility] CO2 31 22 - 32 mmol/L [facility] Anion gap 9 2 - 15 mmol/L [facility] BUN 24 6 - 25 mg/dL [facility] Creatinine 0.81 0.80 - 1.30 mg/dL [facility] Glucose 140 70 - 199 mg/dL [facility] [...] 2022. Calcium 9.1 8.5 - 10.3 mg/dL [facility] Blood 02/26/2024 5:42 AM CDT 02/26/2024 6:50 AM CDT Josefa Taylor SYSTEM ADMINISTRATION ADVISOR LAB BLOOD ORDERABLES Pilar l Result Performing Organization Address City/[facility]/ZIP Co de Phone Number [address] [employer] [place] [address] * POCT glucose (02/26/2024 4:22 AM CDT) Glucose, POC 125 70 - 199 mg/dL Glucose comment 1 Use This Result [facility] Blood 02/26/2024 4:22 AM CDT 02/26/2024 4:22 AM CDT Diana Rivera DO LAB POCT ORDERABLES - DEVICE Fin al Result Performing Organization Address City/[facility]/ZIP Co de Phone Number [address] [employer] [place] [address] * POCT glucose (02/26/2024 12:14 AM CDT) Glucose, POC 121 70 - 199 mg/dL Blood 02/26/2024 12:1 4 AM CDT 02/26/2024 12:14 AM CDT Saim Rivera DO LAB POCT ORDERABLES - DEVICE Fin al Result Performing Organization Address [facility] de Phone Number ZULEMA [address] [address] * (ABNORMAL) POCT glucose (02/25/2024 7:22 PM CDT) Glucose, POC 362(H) 70 - 199 mg/dL Glucose comment 1 Use This Result [facility] Glucose comment 2 RN/MD Notified [facility] Blood 02/25/2024 7:22 PM CDT 02/25/2024 7:22 PM CDT Saim Rivera DO LAB POCT ORDERABLES - DEVICE Fin al Result Performing Organization Address [facility] de Phone Number LESLIE[address] [address] * POCT glucose (02/25/2024 4:26 PM CDT) Glucose, POC 152 70 - 199 mg/dL Glucose comment 1 Use This Result [facility] Blood 02/25/2024 4:26 PM CDT 02/25/2024 4:26 PM CDT Saim Rivera DO LAB POCT ORDERABLES - DEVICE Fin al Result Performing Organization Address [facility] de Phone Number [address] [place] [address] * TRANSTHORACIC ECHO (TTE) COMPLETE W DOPPLER/CF W CONTRAST (02/25/2024 2:03 PM CDT) Anatomical Region Laterality Modality Ultrasound 02/25/2024 2:03 PM CDT Narrative 02/26/2024 4:01 PM CDT ? Adult Echocardiogram + ----- + :Name: BRI JONES Bertin ??Study Date: 02/25/2024 ?Status: MHB ?: : ?Patient Location: [facility]^[id number]^Height: 71 in ?: : ?Weight: 142 lbBP: [...] Date: 02/25/2024Status: B : : Patient Location: [address]^[id number]^Height: 71 in : : : 142 lbBP: [...] DEVICE Fin al Result Performing Organization Address [facility] de Phone Number ZULEMA [address] [address] * POCT glucose (02/25/2024 7:57 AM CDT) Glucose, POC 99 70 - 199 mg/dL Glucose comment 1 Use This Result [facility] Glucose comment 2 RN/MD Notified ZULEMA Blood 02/25/2024 7:57 AM CDT 02/25/2024 7:57 AM CDT Saim Rivera DO LAB POCT ORDERABLES - DEVICE Fin al Result Performing Organization Address [facility] de Phone Number LESLIE[address] [address] * (ABNORMAL) POCT glucose (02/25/2024 4:21 AM CDT) Glucose, POC 218(H) 70 - 199 mg/dL Glucose comment 1 Use This Result ZULEMA Blood 02/25/2024 4:21 AM CDT 02/25/2024 4:21 AM CDT Corbin Cole MD LAB POCT ORDERABLES - DEVICE Final Result Performing Organization Address [facility] de Phone Number LESLIE[address] [address] * eGFR (02/25/2024 2:22 AM CDT) eGFR [...] LAB BLOOD ORDERABLES Final R esult ZULEMA [address] [facility] Department [place] [address] * (ABNORMAL) Differential, auto (02/25/2024 2:22 AM CDT) Neutrophil abs 10.0(H) 1.5 - 6.5 K/cumm Imm gran abs 0.1 0.0 - 0.1 K/cumm [facility] Lymphocyte abs 4.0(H) 0.8 - 3.3 K/cumm [facility] Monocyte abs 1.2(H) 0.2 - 0.8 K/cumm [facility] Eosinophil abs 0.0 0.0 - 0.5 K/cumm [facility] Basophil abs 0.0 0.0 - 0.1 K/cumm [facility] Neutrophil pct 65.4 % [facility] Comment: Interpretive Data Percent cell count reference ranges are not reported, since discordance with absolute values may lead to misinterpretation of CBC data. Current Interpretive Data was last revised on 2018. Imm gran pct 0.7 % [facility] Comment: Interpretive Data Percent cell count reference ranges are not reported, since discordance with absolute values may lead to misinterpretation of CBC data. Current Interpretive Data was last revised on 2018. Lymphocyte pct 26.0 % [facility] Comment: Interpretive Data Percent cell count reference ranges are not reported, since discordance with absolute values may lead to misinterpretation of CBC data. Current Interpretive Data was last revised on 2018. Monocyte pct 7.8 % [facility] Comment: Interpretive Data Percent cell count reference ranges are not reported, since discordance with absolute values may lead to misinterpretation of CBC data. Current Interpretive Data was last revised on 2018. Eosinophil pct 0.0 % [facility] Comment: Interpretive Data Percent cell count reference ranges are not reported, since discordance with absolute values may lead to misinterpretation of CBC data. Current Interpretive Data was last revised on 2018. Basophil pct 0.1 % [facility] Comment: Interpretive Data Percent cell count reference ranges are not reported, since discordance with absolute values may lead to misinterpretation of CBC data. Current Interpretive Data was last revised on 2018. Blood 02/25/2024 2:22 AM CDT 02/25/2024 3:28 AM CDT us Osmar Orta MD LAB BLOOD ORDERABLES Final R esult [facility] [address] [facility] Department [place] [address] * Comprehensive metabolic panel (02/25/2024 2:22 AM CDT) Sodium 140 135 - 145 mmol/L Potassium, pl 3.9 3.3 - 4.9 mmol/L [facility] Chloride 102 97 - 110 mmol/L [facility] CO2 28 22 - 32 mmol/L [facility] Anion gap 10 2 - 15 mmol/L [facility] BUN 22 6 - 25 mg/dL [facility] Creatinine 0.90 0.80 - 1.30 mg/dL [facility] Glucose 71 70 - 199 mg/dL [facility] Comment: Delta - Results Reviewed Interpretive [...] 2022. Calcium 8.9 8.5 - 10.3 mg/dL [facility] Bilirubin, total 0.2 0.1 - 1.2 mg/dL [facility] Protein, pl 7.4 6.5 - 8.5 g/dL [facility] Albumin 3.5 3.5 - 5.0 g/dL [facility] Alk phos 113 40 - 130 Units/L [facility] ALT 27 7 - 55 Units/L [facility] AST 22 10 - 50 Units/L [facility] Blood 02/25/2024 2:22 AM CDT 02/25/2024 3:28 AM CDT us Osmar Orta MD LAB BLOOD ORDERABLES Final R esult [facility] [address] [facility] Department [place] [address] * (ABNORMAL) CBC with auto differential (02/25/2024 2:22 AM CDT) WBC 15.2(H) 3.8 - 9.9 K/cumm Hgb 11.1(L) 13.0 - 17.5 g/dL [facility] Hct 33.6(L) 38.9 - 50.3 % [facility] Plt 405(H) 150 - 400 K/cumm [facility] MPV 10.2 9.1 - 12.3 fL [facility] RBC 3.17(L) 4.30 - 5.80 M/cumm [facility] MCV 106.0(H) 81.3 - 96.4 fL [facility] MCH 35.0(H) 27.1 - 33.3 pg [facility] MCHC 33.0 32.3 - 35.7 g/dL [facility] RDW CV 15.9(H) 11.1 - 14.9 % [facility] RDW SD 62.0(H) 35.7 - 48.1 fL [facility] NRBC abs 0.09(H) 0.00 - 0.01 K/cumm [facility] Blood 02/25/2024 2:22 AM CDT 02/25/2024 3:28 AM CDT Osmar Orta MD LAB BLOOD ORDERABLES Final R esult Performing Organization Address City/[facility] Co de Phone Number LESLIE[address] [employer] [place] [address] * POCT glucose (02/25/2024 2:15 AM CDT) Glucose, POC 78 70 - 199 mg/dL Blood 02/25/2024 2:15 AM CDT 02/25/2024 2:15 AM CDT Corbin Cole MD LAB POCT ORDERABLES - DEVICE Final Result Performing Organization Address City/[facility]/ZIP Co de Phone Number [address] [place] [address] * POCT glucose (02/24/2024 11:22 PM CDT) Glucose, POC 152 70 - 199 mg/dL Glucose comment 1 Use This Result [facility] Blood 02/24/2024 11:2 2 PM CDT 02/24/2024 11:22 PM CDT Corbin Cole MD LAB POCT ORDERABLES - DEVICE Final Result Performing Organization Address [facility] Co de Phone Number ZULEMA [address] [address] * (ABNORMAL) POCT glucose (02/24/2024 7:32 PM CDT) Glucose, POC 229(H) 70 - 199 mg/dL Glucose comment 1 Use This Result ZULEMA Blood 02/24/2024 7:32 PM CDT 02/24/2024 7:32 PM CDT Corbin Cole MD LAB POCT ORDERABLES - DEVICE Final Result Performing Organization Address [facility] Co de Phone Number [address] [address] * POCT glucose (02/24/2024 4:57 PM CDT) Glucose, POC 131 70 - 199 mg/dL Glucose comment 1 Use This Result LESLIEAVTAR Blood 02/24/2024 4:57 PM CDT 02/24/2024 4:57 PM CDT Corbin Cole MD LAB POCT ORDERABLES - DEVICE Final Result Performing Organization Address City/[facility] Co de Phone Number [address] [address] * Blood culture Blood Arm, right (02/24/2024 1:18 PM CDT) Report Final Report: No growth Comment:Testing performed by : [facility], [address] [facility], [place]., [address] Blood (Arm, right) 02/24/2024 1:18 PM CDT [...] organism identification may be performed using the Ziarcoigene Gram-Positive Blood Culture Assay. This assay detects microbial DNA in positive blood culture broth via hybridization of target DNA to capture oligonucleotides on a microarray. This assay has been cleared by the [place] Food and Drug Administration and its performance characteristics have been verified by the [facility]. 5. ?For questions about this culture, contact the Microbiology Laboratory at [phone]. Interpretive data was last revised on 2020. Corbin Cole MD LAB MICROBIOLOGY - [facility] ORDERABLES Final Result [facility] [address] [facility] Department [place] [address] * Blood culture Blood Arm, right (02/24/2024 12:56 PM CDT) Report Final Report: No growth Comment:Testing performed by : [facility], [address] [facility], [place]., [address] Blood (Arm, right) 02/24/2024 12:56 PM CDT [...] organism identification may be performed using the [employer]iar[employer] Gram-Positive Blood Culture Assay. This assay detects microbial DNA in positive blood culture broth via hybridization of target DNA to capture oligonucleotides on a microarray. This assay has been cleared by the [place] Food and Drug Administration and its performance characteristics have been verified by the [facility]. 5. ?For questions about this culture, contact the Microbiology Laboratory at [phone]. Interpretive data was last revised on 2020. Corbin Cole MD LAB MICROBIOLOGY - G ENERAL ORDERABLES Final Result Performing Organization Address City/[facility]/ZIP Co de Phone Number LESLIEAVTAR [facility] Department [place] [address] * POCT glucose (02/24/2024 11:51 AM CDT) [facility] Signature Glucose, POC 105 70 - 199 mg/dL Glucose comment 1 Use This Result ZULEMA CHAVEZ Blood 02/24/2024 11:5 1 AM CDT 02/24/2024 11:51 AM CDT Corbin Cole MD LAB POCT ORDERABLES - DEVICE Final Result Performing Organization Address City/[facility]/ZIP Co de Phone Number ZULEMA Richardson0 [facility] [place] [address] * POCT glucose (02/24/2024 8:22 AM CDT) [facility] Glucose, POC 112 70 - 199 mg/dL Glucose comment 1 Use This Result ZULEMA CHAVEZ Blood 02/24/2024 8:22 AM CDT 02/24/2024 8:22 AM CDT Corbin Cole MD LAB POCT ORDERABLES - DEVICE Final Result ZULEMA Dylan0 [facility] [place] [address] * eGFR (02/24/2024 4:56 AM CDT) [facility] eGFR >90 >=60 mL/min/1. 73 m2 Comment: [...] ORDERABLES Pilar armas Result Performing Organization Address City/[facility]/ZIP Co de Phone Number [address] [place] [address] * (ABNORMAL) CBC without differential (02/24/2024 4:56 AM CDT) Pathologist [facility] WBC 11.7(H) 3.8 - 9.9 K/cumm Hgb 11.3(L) 13.0 - 17.5 g/dL [facility] Hct 34.2(L) 38.9 - 50.3 % [facility] Plt 382 150 - 400 K/cumm [facility] MPV 10.3 9.1 - 12.3 fL [facility] RBC 3.23(L) 4.30 - 5.80 M/cumm [facility] MCV 105.9(H) 81.3 - 96.4 fL [facility] MCH 35.0(H) 27.1 - 33.3 pg [facility] MCHC 33.0 32.3 - 35.7 g/dL [facility] RDW CV 15.9(H) 11.1 - 14.9 % [facility] RDW SD 61.6(H) 35.7 - 48.1 fL [facility] NRBC abs 0.03(H) 0.00 - 0.01 K/cumm [facility] Blood 02/24/2024 4:56 AM CDT 02/24/2024 6:09 AM CDT Josefa Taylor NP LAB BLOOD ORDERABLES Pilar armas Result [address] [place] [address] * (ABNORMAL) Basic metabolic panel (02/24/2024 4:56 AM CDT) [facility] Sodium 137 135 - 145 mmol/L Potassium, pl 4.0 3.3 - 4.9 mmol/L [facility] Chloride 98 97 - 110 mmol/L [facility] CO2 30 22 - 32 mmol/L [facility] Anion gap 9 2 - 15 mmol/L [facility] BUN 19 6 - 25 mg/dL [facility] Creatinine 0.67(L) 0.80 - 1.30 mg/dL [facility] Glucose 288(H) 70 - 199 mg/dL [facility] [...] 2022. Calcium 9.0 8.5 - 10.3 mg/dL [facility] Blood 02/24/2024 4:56 AM CDT 02/24/2024 6:09 AM CDT Josefa Taylor SYSTEM ADMINISTRATION ADVISOR LAB BLOOD ORDERABLES Pilar l Result Performing Organization Address [facility]/ZIP Co de Phone Number [address] Department [place] [address] * (ABNORMAL) POCT glucose (02/24/2024 4:14 AM CDT) [facility] Glucose, POC 345(H) 70 - 199 mg/dL Glucose comment 1 Use This Result [facility] Glucose comment 2 RN/MD Notified [facility] Blood 02/24/2024 4:14 AM CDT 02/24/2024 4:14 AM CDT Corbin Cole MD LAB POCT ORDERABLES - DEVICE Final Result Performing Organization Address City/[facility]/ZIP Co de Phone Number CERNER [address] [address] * POCT glucose (02/24/2024 12:00 AM CDT) Glucose, POC 115 70 - 199 mg/dL Blood 02/24/2024 02/24/2024 12: 00 AM CDT Corbin Cole MD LAB POCT ORDERABLES - DEVICE Final Result ZULEMA [address] [address] * (ABNORMAL) POCT glucose (02/23/2024 8:19 PM CDT) Glucose, POC 336(H) 70 - 199 mg/dL Glucose comment 1 Use This Result [facility] Glucose comment 2 RN/MD Notified ZULEMA Blood 02/23/2024 8:19 PM CDT 02/23/2024 8:19 PM CDT Corbin Cole MD LAB POCT ORDERABLES - DEVICE Final Result Performing Organization Address [facility] Co de Phone Number ZULEMA [address] [place] [address] * (ABNORMAL) POCT glucose (02/23/2024 4:48 PM CDT) Glucose, POC 245(H) 70 - 199 mg/dL Glucose comment 1 Use This Result [facility] Glucose comment 2 RN/MD Notified ZULEMA Blood 02/23/2024 4:48 PM CDT 02/23/2024 4:48 PM CDT us Corbin Cole MD LAB POCT ORDERABLES - DEVICE Final Result Performing Organization Address City/[facility]/ZIP Co de Phone Number LESLIE[address] [place] [address] * POCT glucose (02/23/2024 11:30 AM CDT) Glucose, POC 118 70 - 199 mg/dL Glucose comment 1 Use This Result ZULEMA Blood 02/23/2024 11:3 0 AM CDT 02/23/2024 11:30 AM CDT Corbin Cole MD LAB POCT ORDERABLES - DEVICE Final Result ZULEMA [address] [facility] Department [place] [address] * Mycoplasma pneumoniae PCR Sputum (02/23/2024 8:53 AM CDT) [facility] M. pneumoniae DNA Not Detected Not Detected [facility] Comment: Interpretive Data: This assay tests for the presence of Mycoplasma pneumoniae. ?? This test is laboratory developed and its performance characteristics were determined by the performing laboratory in a manner consistent with CLIA requirements. This test has not been cleared or approved by the U.S. Food and Drug Administration. Current Interpretive Data was last revised on 2020. Testing performed by: [facility], [address] [place] [address] Sputum 02/23/2024 8:53 AM CDT 02/23/2024 7:05 PM CDT Corbin Cole MD LAB MICROBIOLOGY - G ENERAL ORDERABLES Final Result ZULEMA [address] [facility] Department [place] [address] [facility] * POCT glucose (02/23/2024 7:36 AM CDT) Glucose, POC 159 70 - 199 mg/dL Glucose comment 1 Use This Result ZULEMA Blood 02/23/2024 7:36 AM CDT 02/23/2024 7:36 AM CDT us Corbin Cole MD LAB POCT ORDERABLES - DEVICE Final Result Performing Organization Address [facility] de Phone Number ZULEMA [address] [place] [address] [employer] [place] [address] * eGFR (02/23/2024 6:31 AM CDT) eGFR [...] ORDERABLES Pilar l Result Performing Organization Address [facility] Co de Phone Number ZULEMA [address] [facility] [employer] [place] [address] * (ABNORMAL) CBC without differential (02/23/2024 6:31 AM CDT) [facility] WBC 7.7 3.8 - 9.9 K/cumm Hgb 10.5(L) 13.0 - 17.5 g/dL [facility] Hct 31.5(L) 38.9 - 50.3 % [facility] Plt 339 150 - 400 K/cumm [facility] MPV 9.9 9.1 - 12.3 fL [facility] RBC 3.01(L) 4.30 - 5.80 M/cumm [facility] MCV 104.7(H) 81.3 - 96.4 fL [facility] MCH 34.9(H) 27.1 - 33.3 pg [facility] MCHC 33.3 32.3 - 35.7 g/dL [facility] RDW CV 15.5(H) 11.1 - 14.9 % [facility] RDW SD 59.8(H) 35.7 - 48.1 fL [facility] NRBC abs 0.00 0.00 - 0.01 K/cumm [facility] Blood 02/23/2024 6:31 AM CDT 02/23/2024 7:19 AM CDT Josefa Taylor NP LAB BLOOD ORDERABLES Pilar armas Result [facility] [address] [facility] Department [place] [address] * (ABNORMAL) Basic metabolic panel (02/23/2024 6:31 AM CDT) [facility] Sodium 135 135 - 145 mmol/L Potassium, pl 4.2 3.3 - 4.9 mmol/L [facility] Chloride 98 97 - 110 mmol/L [facility] CO2 28 22 - 32 mmol/L [facility] Anion gap 9 2 - 15 mmol/L [facility] BUN 15 6 - 25 mg/dL [facility] Creatinine 0.62(L) 0.80 - 1.30 mg/dL [facility] Glucose 239(H) 70 - 199 mg/dL [facility] [...] Calcium 8.3(L) 8.5 - 10.3 mg/dL [facility] Blood 02/23/2024 6:31 AM CDT 02/23/2024 7:19 AM CDT Josefa Taylor NP LAB BLOOD ORDERABLES Pilar l Result Performing Organization Address [facility] Co de Phone Number [address] [employer] [place] [address] * POCT glucose (02/22/2024 7:17 PM CDT) Glucose, POC 186 70 - 199 mg/dL Glucose comment 1 Use This Result [facility] Glucose comment 2 RN/MD Notified [facility] Blood 02/22/2024 7:17 PM CDT 02/22/2024 7:17 PM CDT Result [facility] Corbin Cole MD LAB POCT ORDERABLES - DEVICE Final Result Performing Organization Address City/[facility]/ZIP Co de Phone Number [place] [phone] [facility] [place] [address] * POCT glucose (02/22/2024 5:21 PM CDT) Glucose, POC 176 70 - 199 mg/dL Blood 02/22/2024 5:21 PM CDT 02/22/2024 5:21 PM CDT Corbin Cole MD LAB POCT ORDERABLES - DEVICE Final Result Performing Organization Address [facility] Co de Phone Number ZULEMA [address] [address] * Strep pneumoniae antigen, urine Urine (02/22/2024 [...] ENERAL ORDERABLES Final Result Performing Organization Address [facility] Co de Phone Number LESLIE[address] [address] * Legionella antigen Urine (02/22/2024 3:05 PM CDT) Legionella Ag Negative Negative Comment: Interpretive Data This test detects only Legionella pneumophila serogroup 1 antigen. Testing performed by [facility] ([phone]). Current interpretive data was last revised on 2020. Testing performed by: [facility], [address] [facility], [place]., [address] Urine 02/22/2024 3:05 PM CDT 02/22/2024 7:06 PM CDT Corbin Cole MD LAB MICROBIOLOGY - G ENERAL ORDERABLES Final Result Performing Organization Address City/[facility]/ZIP Co de Phone Number ZULEMA [facility] [place] [address] * MRSA Only (Staphylococcus aureus) PCR Nasal (02/22/2024 3:05 PM CDT) Pathologist [facility] PCR Scrn, Methicillin resistant Staphylococcus aureus (MRSA) Not Detected Not Detected Comment: Interpretive Data Testing performed using Nucleic Acid Amplification with the [employer] Xpert MRSA NxG Assay. This assay detects target DNA from mecA, mecC and the SCCmec insertion site of Staphylococcus aureus using Real-Time PCR and has been cleared by the FDA. Performance characteristics have been verified by the [facility]. Current Interpretive Data was last revised on 2023 Nasal 02/22/2024 3:05 PM CDT 02/22/2024 3:30 PM CDT Corbin Cole MD LAB MICROBIOLOGY - G ENERAL ORDERABLES Final Result ZULEMA [address] [facility] Department [place] [address] * Respiratory pathogen panel Nasopharyngeal (02/22/2024 3:05 PM CDT) [facility] Influenza A RNA Not Detected Not Detected Comment:Testing performed by : [facility], [address] [place] [address] Influenza B RNA Not Detected Not Detected ZULEMA CHAVEZ Comment:Testing performed by : [facility], [address] [place]., [address] RSV RNA Not Detected Not Detected ZULEMA CHAVEZ Comment:Testing performed by : [facility], [address] [place] [address] COVID-19 RNA Not Detected Not Detected ZULEMA CHAVEZ Comment:Testing performed by : [facility], [address] [place] [address] Coronavirus 229E RNA Not Detected Not Detected ZULEMA CHAVEZ Comment:Testing performed by : [facility], [address] [place]., [address] Coronavirus HKU1 RNA Not Detected Not Detected ZULEMA CHAVEZ Comment:Testing performed by : [facility], [address] [place]., [address] Coronavirus NL63 RNA Not Detected Not Detected CERNER Comment:Testing performed by : [facility], [address] [facility], [address] Coronavirus OC43 RNA Not Detected Not Detected CERNER Comment:Testing performed by : [facility], [address] [facility], [address] Adenovirus DNA Not Detected Not Detected CERNER Comment:Testing performed by : [facility], [address] [facility], [address] Metapneumovirus RNA Not Detected Not Detected CERNER Comment:Testing performed by : [facility], [address] [facility], [address] Rhinovirus/Enterov irus RNA Not Detected Not Detected CERNER Comment:Testing performed by : [facility], [address] [facility], [address] Parainfluenza 1 RNA Not Detected Not Detected CERNER Comment:Testing performed by : [facility], [address] [place]., [address] Parainfluenza 2 RNA Not Detected Not Detected CERNER Comment:Testing performed by : [facility], [address] [place]., [address] Parainfluenza 3 RNA Not Detected Not Detected CERNER Comment:Testing performed by : [facility], [address] [place]., [address] Parainfluenza 4 RNA Not Detected Not Detected CERNER Comment:Testing performed by : [facility], [address] [facility], [address] B. pertussis DNA Not Detected Not Detected CERAVTAR Comment:Testing performed by : [facility], [address] [place]., [address] B. parapertussis DNA Not Detected Not Detected CERNER Comment:Testing performed by : [facility], [address] [place]., [address] C. pneumoniae DNA Not Detected Not Detected ZULEMA CHAVEZ Comment:Testing performed by : [facility], [address] [place]., [address] M. pneumoniae DNA Not Detected Not Detected ZULEMA CHAVEZ Comment:Testing performed by : [facility], [address] [place]., [address] Nasopharyngeal 02/22/2024 3: 05 PM CDT 02/22/2024 4:56 PM CDT Narrative ZULEMA - 02/22/2024 5:56 PM CDT Is the Patient experiencing symptoms consistent with COVID?->Yes Surveillance testing for transplant patient?->No ??Interpretive Data The [employer] FilmArray Respiratory Panel (RP2.1) assay is a [...] assay has FDA clearance for testing of SYSTEM ADMINISTRATION ADVISOR swabs. ??The performance of additional specimen types has been assessed by the performing laboratory. ??The performance characteristics of this assay have been determined by [facility] Molecular Infectious Disease Laboratory. Current interpretive data was last revised on 22. us Corbin Cole MD LAB MICROBIOLOGY - G ENERAL ORDERABLES Final Result Performing Organization Address City/[facility] Co de Phone Number ZULEMA [facility] [place] [address] * Lactate (02/22/2024 2:27 PM CDT) Lactate 2.0 0.7 - 2.0 mmol/L Blood 02/22/2024 2:27 PM CDT 02/22/2024 2:31 PM CDT Corbin Cole MD LAB BLOOD ORDERABLES Final Result Performing Organization Address [facility] Co de Phone Number ZULEMA [facility] [place] [address] * XR Chest PA Lateral 2 Views [...] D: ??02/22/2024 2:09 PM T: Report ID: [id number] Reading Location: ??[id number] Procedure Note Dallas Gonzalez MD - 02/22/2024 [...] signed by Dallas MCCALL T: Report ID: [id number] Reading Location: [id number] Corbin Cole MD IMG XR PROCEDURES Fi nal Result * (ABNORMAL) POCT glucose (02/22/2024 11:38 AM CDT) Glucose, POC 247(H) 70 - 199 mg/dL Glucose comment 1 Use This Result ZULEMA Blood 02/22/2024 11:3 8 AM CDT 02/22/2024 11:38 AM CDT Corbin Cole MD LAB POCT ORDERABLES - DEVICE Final Result ZULEMA [address] [facility] [place] [address] * (ABNORMAL) Blood culture Blood (02/22/2024 10:26 AM CDT) Direct Specimen Exam Stain: Gram Positive Cocci in clusters Time to culture positivity (aerobic media): 36.2 hours Comment:Testing performed by : [facility], [address] [place] [address]., [id number] Report Final Report: Staphylococcus aureus For susceptibility results, refer to accession number [id number] on the blood culture from 02/22/2024 (.) ZULEMA Comment:Testing performed by : [facility], [address] [place] [address]., [address] Organism STAPHYLOCOCCUS AUREUS ZULEMA Blood 02/22/2024 10:2 [...] organism identification may be performed using the Ziarcoigene Gram-Positive Blood Culture Assay. This assay detects microbial DNA in positive blood culture broth via hybridization of target DNA to capture oligonucleotides on a microarray. This assay has been cleared by the [place] Food and Drug Administration and its performance characteristics have been verified by the [facility]. 5. ?For questions about this culture, contact the Microbiology Laboratory at [phone]. Interpretive data was last revised on 2020. Corbin Cole MD LAB MICROBIOLOGY - G ENERAL ORDERABLES Final Result ZULEMA CHAVEZ [address] [facility] Department [place] [address] * (ABNORMAL) Blood culture Blood (02/22/2024 10:21 AM CDT) Direct Specimen Exam Molecular Analysis: Staphylococcus aureus, methicillin susceptible (MSSA) detected by the Verigene Blood Culture Nucleic Acid Test. This test does not exclude the possibility of a mixed bacterial infection. Notification of: Staphylococcus aureus, methicillin susceptible (MSSA) called to and read back by: Gareth Suárez MT ([phone]) on 02/23/2024 17:09:44 by: Anjelica Zayas MT Comment:Testing performed by : [facility], [address] [place] [address]., [address] Direct Specimen Exam Stain: Gram Positive Cocci in clusters Time to culture positivity (aerobic media): 23.8 hours Notification of: Gram Positive Cocci in clusters called to and read back by: Irish Dee MT [phone] on 02/23/2024 13:58:10 by: Quiana Pierre MLS Test result called to and read back by [id number] on 02/23/2024 14:08:19 by [email or web address] ZULEMA CHAVEZ Comment:Testing performed by : [facility], [address] [place] [address]., [id number] Report Final Report: Staphylococcus aureus Methicillin susceptible (MSSA) by penicillin binding protein 2a (PBP2a) testing. (.) ZULEMA CHAVEZ Comment:Testing performed by : [address] [address] Organism STAPHYLOCOCCUS AUREUS ZULEMA CHAVEZ Blood 02/22/2024 [...] organism identification may be performed using the Ziarcoigene Gram-Positive Blood Culture Assay. This assay detects microbial DNA in positive blood culture broth via hybridization of target DNA to capture oligonucleotides on a microarray. This assay has been cleared by the [place] Food and Drug Administration and its performance characteristics have been verified by the [facility]. 5. ?For questions about this culture, contact the Microbiology Laboratory at [phone]. Interpretive data was last revised on 2020. [...] ENERAL ORDERABLES Final Result Performing Organization Address City/[facility]/ZIP Co de Phone Number ZULEMA [facility] [place] [address] * POCT glucose (02/22/2024 7:46 AM CDT) [facility] Glucose, POC 191 70 - 199 mg/dL Glucose comment 1 Use This Result ZULEMA Blood 02/22/2024 7:46 AM CDT 02/22/2024 7:46 AM CDT Corbin Cole MD LAB POCT ORDERABLES - DEVICE Final Result Performing Organization Address [facility] Co de Phone Number ZULEMA [address] [facility] [place] [address] * eGFR (02/22/2024 5:18 AM CDT) [facility] eGFR >90 >=60 mL/min/1. 73 m2 Comment: [...] 5:18 AM CDT 02/22/2024 5:48 AM CDT [facility] LAB BLOOD ORDERABLES Pilar l Result Performing Organization Address [facility] Co de Phone Number [address] [employer] [place] [address] * (ABNORMAL) CBC without differential (02/22/2024 5:18 AM CDT) WBC 17.1(H) 3.8 - 9.9 K/cumm Hgb 9.6(L) 13.0 - 17.5 g/dL [facility] Hct 28.6(L) 38.9 - 50.3 % [facility] Plt 317 150 - 400 K/cumm [facility] MPV 10.0 9.1 - 12.3 fL [facility] RBC 2.73(L) 4.30 - 5.80 M/cumm [facility] MCV 104.8(H) 81.3 - 96.4 fL [facility] MCH 35.2(H) 27.1 - 33.3 pg [facility] MCHC 33.6 32.3 - 35.7 g/dL [facility] RDW CV 15.6(H) 11.1 - 14.9 % [facility] RDW SD 59.9(H) 35.7 - 48.1 fL [facility] NRBC abs 0.03(H) 0.00 - 0.01 K/cumm [facility] Blood 02/22/2024 5:18 AM CDT 02/22/2024 5:48 AM CDT Josefaflori Taylor LAB BLOOD ORDERABLES Pilar l Result Performing Organization Address [facility]/ZIP Co de Phone Number LESLIE[address] [place] [address] * (ABNORMAL) Basic metabolic panel (02/22/2024 5:18 AM CDT) Sodium 134(L) 135 - 145 mmol/L Potassium, pl 3.7 3.3 - 4.9 mmol/L [facility] Chloride 97 97 - 110 mmol/L [facility] CO2 29 22 - 32 mmol/L [facility] Anion gap 8 2 - 15 mmol/L [facility] BUN 18 6 - 25 mg/dL [facility] Creatinine 0.75(L) 0.80 - 1.30 mg/dL [facility] Glucose 235(H) 70 - 199 mg/dL [facility] [...] 2022. Calcium 7.8(L) 8.5 - 10.3 mg/dL [facility] Blood 02/22/2024 5:18 AM CDT 02/22/2024 5:48 AM CDT Josefa Taylor NP LAB BLOOD ORDERABLES Pilar l Result [facility] [address] [facility] Department [place] [address] * (ABNORMAL) POCT glucose (02/22/2024 4:24 AM CDT) Glucose, POC 279(H) 70 - 199 mg/dL Glucose comment 1 Use This Result [facility] Blood 02/22/2024 4:24 AM CDT 02/22/2024 4:24 AM CDT Corbin Cole MD LAB POCT ORDERABLES - DEVICE Final Result Performing Organization Address [facility] de Phone Number ZULEMA [address] [address] * (ABNORMAL) POCT glucose (02/22/2024 1:58 AM CDT) Glucose, POC 272(H) 70 - 199 mg/dL Glucose comment 1 Use This Result ZULEMA Glucose comment 2 Will Notify Nurse LESLIEAVTAR Blood 02/22/2024 1:58 AM CDT 02/22/2024 1:58 AM CDT us Corbin Cole MD LAB POCT ORDERABLES - DEVICE Final Result Performing Organization Address [facility] de Phone Number ZULEMA [address] [address] * (ABNORMAL) POCT glucose (02/22/2024 12:04 AM CDT) Glucose, POC 262(H) 70 - 199 mg/dL Glucose comment 1 Use This Result LESLIEAVTAR Blood 02/22/2024 12:0 4 AM CDT 02/22/2024 12:04 AM CDT us Corbin Cole MD LAB POCT ORDERABLES - DEVICE Final Result Performing Organization Address [facility] de Phone Number ZULEMA [address] [address] * POCT glucose (02/21/2024 7:44 PM CDT) Glucose, POC 184 70 - 199 mg/dL Glucose comment 1 Use This Result ZULEMA Blood 02/21/2024 7:44 PM CDT 02/21/2024 7:44 PM CDT us Corbin Cole MD LAB POCT ORDERABLES - DEVICE Final Result Performing Organization Address [facility] Co de Phone Number ZULEMA [address] [place] [address] * (ABNORMAL) POCT glucose (02/21/2024 6:26 PM CDT) Glucose, POC 217(H) 70 - 199 mg/dL Glucose comment 1 Use This Result [facility] Glucose comment 2 RN/MD Notified ZULEMA Blood 02/21/2024 6:26 PM CDT 02/21/2024 6:26 PM CDT Corbin Cole MD LAB POCT ORDERABLES - DEVICE Final Result Performing Organization Address [facility] Co de Phone Number LESLIE[address] [address] * POCT glucose (02/21/2024 4:04 PM CDT) Glucose, POC 118 70 - 199 mg/dL Glucose comment 1 Use This Result [facility] Glucose comment 2 RN/MD Notified LESLIEAVTAR Blood 02/21/2024 4:04 PM CDT 02/21/2024 4:04 PM CDT Corbin Cole MD LAB POCT ORDERABLES - DEVICE Final Result Performing Organization Address City/[facility] Co de Phone Number ZULEMA [address] [place] [address] * (ABNORMAL) POCT glucose (02/21/2024 11:27 AM CDT) Glucose, POC 330(H) 70 - 199 mg/dL Blood 02/21/2024 11:2 7 AM CDT 02/21/2024 11:27 AM CDT us Corbin Cole MD LAB POCT ORDERABLES - DEVICE Final Result Performing Organization Address City/[facility]/ZIP Co de Phone Number ZULEMA [address] [place] [address] * eGFR (02/21/2024 8:37 AM CDT) Pathologist [facility] [place] [...] NP LAB BLOOD ORDERABLES Pilar pawel Result LESLIEBNG [address] [facility] Department [place] [address] * (ABNORMAL) CBC without differential (02/21/2024 8:37 AM CDT) Pathologist [facility] WBC 9.6 3.8 - 9.9 K/cumm Hgb 12.3(L) 13.0 - 17.5 g/dL [facility] Hct 37.7(L) 38.9 - 50.3 % [facility] Plt 392 150 - 400 K/cumm [facility] MPV 9.9 9.1 - 12.3 fL [facility] RBC 3.50(L) 4.30 - 5.80 M/cumm [facility] MCV 107.7(H) 81.3 - 96.4 fL [facility] MCH 35.1(H) 27.1 - 33.3 pg [facility] MCHC 32.6 32.3 - 35.7 g/dL [facility] RDW CV 15.5(H) 11.1 - 14.9 % [facility] RDW SD 61.1(H) 35.7 - 48.1 fL [facility] NRBC abs 0.00 0.00 - 0.01 K/cumm [facility] Blood 02/21/2024 8:37 AM CDT 02/21/2024 8:52 AM CDT Josefa Taylor SYSTEM ADMINISTRATION ADVISOR LAB BLOOD ORDERABLES Pilar armas Result [facility] [address] [facility] Department [place] [address] * (ABNORMAL) Basic metabolic panel (02/21/2024 8:37 AM CDT) Sodium 137 135 - 145 mmol/L Potassium, pl 4.0 3.3 - 4.9 mmol/L [facility] Chloride 98 97 - 110 mmol/L [facility] CO2 29 22 - 32 mmol/L [facility] Anion gap 10 2 - 15 mmol/L [facility] BUN 15 6 - 25 mg/dL [facility] Creatinine 0.54(L) 0.80 - 1.30 mg/dL [facility] Glucose 205(H) 70 - 199 mg/dL [facility] [...] ORDERABLES Pilar l Result Performing Organization Address City/[facility]/ZIP Co de Phone Number [address] [place] [address] * Magnesium (02/21/2024 8:37 AM CDT) [facility] Magnesium 2.1 1.4 - 2.5 mg/dL Blood 02/21/2024 8:37 AM CDT 02/21/2024 8:52 AM CDT Josefa Taylor NP LAB BLOOD ORDERABLES Pilar l Result Performing Organization Address City/[facility] Co de Phone Number [address] [employer] [place] [address] * POCT glucose (02/21/2024 8:01 AM CDT) [facility] Glucose, POC 174 70 - 199 mg/dL Blood 02/21/2024 8:01 AM CDT 02/21/2024 8:01 AM CDT Corbin Cole MD LAB POCT ORDERABLES - DEVICE Final Result Performing Organization Address City/[facility] Co de Phone Number [address] [place] [address] * (ABNORMAL) POCT glucose (02/20/2024 8:39 PM CDT) Glucose, POC 271(H) 70 - 199 mg/dL Glucose comment 1 Use This Result [facility] Glucose comment 2 RN/MD Notified [facility] Blood 02/20/2024 8:39 PM CDT 02/20/2024 8:39 PM CDT us Pacheco Quintanilla MD LAB POCT ORDERABLES - DEV ICE Final Result Performing Organization Address [facility] Co de Phone Number [address] [place] [address] * (ABNORMAL) POCT glucose (02/20/2024 7:25 PM CDT) Glucose, POC 203(H) 70 - 199 mg/dL Glucose comment 1 Use This Result [facility] Glucose comment 2 RN/ Notified [facility] Blood 02/20/2024 7:25 PM CDT 02/20/2024 7:25 PM CDT us Pacheco Quintanilla MD LAB POCT ORDERABLES - DEV ICE Final Result Performing Organization Address [facility] Co de Phone Number [address] [place] [address] * POCT glucose (02/20/2024 6:34 PM CDT) Glucose, POC 181 70 - 199 mg/dL Blood 02/20/2024 6:34 PM CDT 02/20/2024 6:34 PM CDT Pacheco Quintanilla MD LAB POCT ORDERABLES - DEV ICE Final Result Performing Organization Address [facility] Co de Phone Number [address] [address] * Surgical pathology (02/20/2024 12:58 PM CDT) Tissue (Gastric/Stomach biopsy) 02/20/2024 12:58 PM CDT Tissue (Esophageal biopsy) 02/20/2024 12:59 PM CDT Narrative PATHOLOGY [facility] - 02/27/2024 12:23 PM CDT [facility] Department of Pathology [address] [place] [address] ?? Note to Patients: ??This report may [...] 58) Gender: ??M Address: ??[address] [place], [place] [address] [facility] #: [id number] Service: Medical Location: Patient Type: [facility] INPATIENT ? Taken: 02/20/2024 Received: 02/20/2024 Accessioned: [...] 0. ?? jjmhb/02/20/2024 14:23 DOMITILA Conrad, [facility] Microscopic slide review and interpretation for this case was performed at [facility], Department of Surgical Pathology, [address] [facility], [place] [id number], ??[place], [place] ??[address] ?? CLIA # [id number] The Herpes Simplex Virus I test was performed at [facility], Department of Surgical Pathology, [address] [place], [place] ??[address]. The Herpes Simplex Virus II test was performed at [facility], Department of Surgical Pathology, [address] [place], [place] ??[address]. The Cytomegalovirus test was performed at [facility], Department of Surgical Pathology, [address] [place], [place] ??[address]. Gee Mcdaniel MD LAB PATHOLO GY ORDERABLES Final Result PATHOLOGY [facility] * POCT glucose (02/20/2024 12:43 PM CDT) Glucose, POC 126 70 - 199 mg/dL Blood 02/20/2024 12:4 3 PM CDT 02/20/2024 12:43 PM CDT us Pacheco Quintanilla MD LAB POCT ORDERABLES - DEV ICE Final Result ZULEMA [facility] Department [place] [address] * EGD (02/20/2024 12:37 PM CDT) Anatomical Region Laterality Modality Other Narrative Procedure Note Gee Mcdaniel MD - 02/20/2024 12:37 PM CDT [facility] GI ENDOSCOPY Patient Name: Bri Jones Procedure Date: 02/20/2024 12:37 PM Date of : 1965 Admit Type: Inpatient Age: 58 Gender: Male Attending MD: Gee Ravi M.D. Room: [facility] ENDOSCOPY ROOM [address] [facility] Note Status: Finalized Procedure: Upper GI endoscopy [...] On: 02/20/2024 12:37 PM Recognized by the [place] [employer] for promoting quality [...] LAB BLOOD ORDERABLES Pilar l Result LESLIEAVTAR [address] [facility] Department [place] [address] * eGFR (02/20/2024 11:39 AM [...] LAB BLOOD ORDERABLES Pilar l Result ZULEMA [address] [facility] Department [place] [address] * T4, free (02/20/2024 11:39 AM CDT) Free T4 1.13 0.90 - 1.70 ng/dL Blood 02/20/2024 11:3 9 AM CDT 02/20/2024 11:44 AM CDT Narrative ZULEMA - 02/20/2024 1:50 PM CDT This test was reflexed from a TSH result. [facility] LAB BLOOD ORDERABLES Pilar l Result Performing Organization Address [facility] Co de Phone Number LESLIE[address] [place] [address] * (ABNORMAL) Thyroid Function [place] (02/20/2024 11:39 AM CDT) TSH 0.17(L) 0.30 - 4.20 mcIUnit/mL Blood 02/20/2024 11:3 9 AM CDT 02/20/2024 11:[address] [facility] Brandon NP LAB BLOOD ORDERABLES Pilar l Result Performing Organization Address [facility] de Phone Number [address] [address] * (ABNORMAL) Hemoglobin A1c (02/20/2024 11:39 AM CDT) Hgb A1C 6.7(H) 4.0 - 5.6 % Estimated Average Glucose 146 mg/dL ZULEMA Comment: The ADA recommends reporting an estimated Average Glucose (eAG) with all Hemoglobin A1c results using the equation derived from a study of 507 normal and diabetic adults. ??Minority populations were underrepresented and children were not included. ?? (Diabetes Care 31:3171-8403, 2008). ??The eAG is not equivalent to a fasting glucose. Blood 02/20/2024 11:3 9 AM CDT 02/20/2024 11:44 AM CDT [facility] Brandon NP LAB BLOOD ORDERABLES Pilar l Result Performing Organization Address [facility] Co de Phone Number [address] [place] [address] * (ABNORMAL) CBC without differential (02/20/2024 11:39 AM CDT) [facility] WBC 11.9(H) 3.8 - 9.9 K/cumm Hgb 12.0(L) 13.0 - 17.5 g/dL [facility] Hct 35.8(L) 38.9 - 50.3 % [facility] Plt 359 150 - 400 K/cumm [facility] MPV 10.0 9.1 - 12.3 fL [facility] RBC 3.41(L) 4.30 - 5.80 M/cumm [facility] MCV 105.0(H) 81.3 - 96.4 fL [facility] MCH 35.2(H) 27.1 - 33.3 pg [facility] MCHC 33.5 32.3 - 35.7 g/dL [facility] RDW CV 16.1(H) 11.1 - 14.9 % [facility] RDW SD 62.1(H) 35.7 - 48.1 fL [facility] NRBC abs 0.02(H) 0.00 - 0.01 K/cumm [facility] Blood 02/20/2024 11:3 9 AM CDT 02/20/2024 11:44 AM CDT Josefa Taylor NP LAB BLOOD ORDERABLES Pilar armas Result [facility] [address] [facility] Department of Laboratories [place], [place] [id number] * (ABNORMAL) Basic metabolic panel (02/20/2024 11:39 AM CDT) [facility] Sodium 138 135 - 145 mmol/L Potassium, pl 4.0 3.3 - 4.9 mmol/L [facility] Chloride 99 97 - 110 mmol/L [facility] CO2 31 22 - 32 mmol/L [facility] Anion gap 8 2 - 15 mmol/L [facility] BUN 17 6 - 25 mg/dL [facility] Creatinine 0.64(L) 0.80 - 1.30 mg/dL [facility] Glucose 138 70 - 199 mg/dL [facility] [...] 2022. Calcium 8.6 8.5 - 10.3 mg/dL [facility] Blood 02/20/2024 11:3 9 AM CDT 02/20/2024 11:44 AM CDT Josefaflori Taylor LAB BLOOD ORDERABLES Pilar l Result Performing Organization Address [facility] de Phone Number [address] [address] * Magnesium (02/20/2024 11:39 AM CDT) Magnesium 1.9 1.4 - 2.5 mg/dL Blood 02/20/2024 11:3 9 AM CDT 02/20/2024 11:44 AM CDT [facility] Brandon LAB BLOOD ORDERABLES Pilar l Result Performing Organization Address [facility] de Phone Number [address] [place] [address] documented in this encounter Visit Diagnoses Diagnosis [...] mg 2.5 mg, nebulization, Every 4 hours (sports therapist), First dose on Angy 02/20/24 at 1415 Given 02/20/2024 1:58 PM CDT 2.5 mg albuterol 2.5 mg/0.5 mL nebulizer solution 2.5 mg 2.5 mg, nebulization, 4 times daily (sports therapist), First dose (after last modification) on Sat02/20/24 at 1900 Given 02/21/2024 7:59 AM CDT 2.5 mg Given 02/20/2024 5:50 PM CDT 2.5 mg albuterol 2.5 mg/0.5 mL nebulizer solution 2.5 mg 2.5 mg, nebulization, Every 6 hours while awake (sports therapist), First dose (after last modification) on Sat02/21/24 at 1500 Given 03/02/2024 2:36 PM CDT 2.5 mg Given 03/02/2024 7:15 AM CDT 2.5 mg Given 03/01/2024 8:40 PM CDT 2.5 mg albuterol 2.5 mg/0.5 mL nebulizer solution 2.5 mg 2.5 mg, nebulization, Every 4 hours PRN (sports therapist), wheezing, Starting on Sat03/02/24 at 2100 Given 03/05/2024 1:38 PM CDT 2.5 mg Given 03/04/2024 7:12 AM CDT 2.5 mg Given 03/03/2024 7:49 PM CDT 2.5 mg albuterol 2.5 mg/0.5 mL nebulizer solution 2.5 mg 2.5 mg, nebulization, Every 6 hours PRN (sports therapist), wheezing, Starting on Sat03/05/24 at 1342 Given 03/05/2024 7:51 PM CDT 2.5 mg albuterol HFA (PROVENTIL HFA,VENTOLIN HFA,PROAIR HFA) 90 mcg/actuation inhaler 2 puff 2 puff, inhalation, Every 6 hours PRN (sports therapist), wheezing, Starting on Sat02/20/24 at 1725 Given 03/02/2024 8:41 PM CDT 2 puffs Given 02/22/2024 11:17 AM CDT 2 puffs Given 02/22/2024 1:37 AM CDT 2 puffs albuterol HFA (PROVENTIL HFA,VENTOLIN HFA,PROAIR HFA) 90 mcg/actuation inhaler 2 puff 2 puff, inhalation, Every 6 hours while awake (sports therapist), First dose (after last modification) on Sat03/03/24 [...] puff 2 puff, inhalation, 2 times daily (sports therapist), First dose on Sat02/20/24 at 2000, Rinse [...] Call MD for each episode of hypoglycemia. BUILDING REPAIR MAINTENANCE SUPERVISOR STATES GLUTOSE-15 CONTAINS GLUCOSE 40% W/W [...] oral, 2 times daily, First dose on [email or web address] 02/22/24 at 1045, Do not crush, chew, [...] 8 Units 8 Units, subcutaneous, Once, On [place] 03/01/24 at 2030, For 1 dose Given [...] 03/06/2024 8:38 AM CDT 40 mg peg [id number] (ARTIFICAL TEARS) 1-0.2-0.2 % ophthalmic solution 1 [...] inhaler 2 puff 2 puff, inhalation, Daily (sports therapist), First dose on Sat02/21/24 at 0900, Trelegy [...] capsuleIndications:AML (acute myeloid leukemia) in remission ([facility]),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 TDD OF 35 UNITS. Error 02/03/2021 02/20/2024 levalbuterol (XOPENEX HFA) 45 mcg/actuation inhalerIndications:AML (acute myeloid leukemia) in remission ([facility]) Error 06/11/2023 02/20/2024 montelukast (SINGULAIR) 10 mg tabletIndications:AML (acute myeloid leukemia) in remission ([facility]),Cswux-gbclxx-udue disease (HCC) Take 1 tablet (10 mg total) by mouth daily Error 06/26/2022 02/20/2024 mupirocin (BACTROBAN) 2 % ointmentIndications:Loca l skin infection Apply topically 3 (three) times a day Error 05/22/2023 02/20/2024 mycophenolate mofetil (CELLCEPT) 500 mg tabletIndications:AML (acute myeloid leukemia) in remission (HCC),Pasva-kxqbyq-xsum disease (HCC) TAKE TWO TABLETS BY MOUTH [...] by mouth 4 (four) times a day @1ES-0QV-2EI-9PM 4 acyclovir (ZOVIRAX) 400 mg tablet Take [...] puff, inhalation, Every 6 hours while awake (sports therapist), First dose (after last modification) on Sat03/03/24 at 0900 0830 (Given - Provider: Page Bunch, TRAVELING AUDITOR)1340 (Not Given - Provider: Page Bunch, TRAVELING AUDITOR - Reason: Contraindicated)1950 (Not Given - Provider: Anaid Marsh, TRAVELING AUDITOR - Reason: Patient/family refused - Comment: Pt wanted the albuterol neb because he said it worked better for him) 0810 (Given - Provider: Page Bunch, TRAVELING AUDITOR)1351 (Given - Provider: Page Bunch, TRAVELING AUDITOR)2103 (Given - Provider: Tasia Abreu, ELECTRICAL FITTER) 0702 (Given - Provider: Pat Busby, TRAVELING AUDITOR)1412 (Given - Provider: Pat Busby, TRAVELING AUDITOR) atorvastatin (LIPITOR) tablet 40 mg 40 mg, [...] 1) 2 puff, inhalation, 2 times daily (sports therapist), First dose on Angy 02/20/24 at 2000, Rinse mouth with water after use. Do not swallow. 0825 (Given - Provider: Page Bunch, TRAVELING AUDITOR)1950 (Given - Provider: Anaid Marsh, TRAVELING AUDITOR) 0810 (Given - Provider: Page Bunch, TRAVELING AUDITOR)2103 (Given - Provider: Tasia Abreu, ELECTRICAL FITTER) 0703 (Given - Provider: Pat Busby, TRAVELING AUDITOR) cefepime (MAXIPIME) 1,000 mg in sodium chloride [...] BECKI) 0523 ([place] Bag - Provider: Bonnie Wick RN)1240 (New Bag - Provider: Ethel [...] puff(Linked Group 1) 2 puff, inhalation, Daily (sports therapist), First dose on Sat02/21/24 at 0900, Trelegy subs to Symbicort + Spiriva 0830 (Given - Provider: Page Bunch TRAVELING AUDITOR) 0810 (Given - Provider: Page Bunch TRAVELING AUDITOR) 0703 (Given - Provider: Pat Busby, TRAVELING AUDITOR) voriCONAZOLE (VFEND) tablet 200 mg 200 mg, [...] 2.5 mg, nebulization, Every 4 hours PRN (sports therapist), wheezing, Starting on Sat03/02/24 at 2100 1338 (Given - Provider: Page Bunch, TRAVELING AUDITOR) albuterol 2.5 mg/0.5 mL nebulizer solution 2.5 mg 2.5 mg, nebulization, Every 6 hours PRN (sports therapist), wheezing, Starting on Sat03/05/24 at 1342 1951 (Given - Provider: Anaid Marsh, TRAVELING AUDITOR) Carrier Fluids for Secondary Infusion - 0.9% [...] Call MD for each episode of hypoglycemia. BUILDING REPAIR MAINTENANCE SUPERVISOR STATES GLUTOSE-15 CONTAINS GLUCOSE 40% W/W [...] at 1126, Indications: Nausea and Vomiting peg 172-byojqeftcjyr-ygormcad (ARTIFICAL TEARS) 1-0.2-0.2 % ophthalmic solution 1 [...] med 2 puff, inhalation, 2 times daily (sports therapist), First dose on Sat02/20/24 at 2000, Rinse mouth with water after use. Do not swallow. And tiotropium bromide (SPIRIVA RESPIMAT) 2.5 mcg/actuation inhaler 2 puffJump to med 2 puff, inhalation, Daily (sports therapist), First dose on Sat02/21/24 at 0900, Trelegy [...] Call MD for each episode of hypoglycemia. BUILDING REPAIR MAINTENANCE SUPERVISOR STATES GLUTOSE-15 CONTAINS GLUCOSE 40% W/W [...] ative free injection 25 mcg 1 02/20/2024 wauurpobhzn-dmddlxqrm-upigsh er (TRELEGY ELLIPTA) 200-62.5-25 mcg inhaler 1 [...] documented as of this encounter Care Teams Claims Analyst Relationship Specialty Start Date End Date Gama Lindsay DO PCP - General Internal Medicine 02/02/21 Josué Del Valle MD PhD Medical Oncologist/Terrazzo Polisher Helper Medical Oncology 08/26/19 Cal Carranza DO [address] [facility] [address] [place], [place] [id number] Electronic Imaging System Operator Internal Medicine 06/12/23 Halie Khan MD [address] [facility] [address] [place] [address] Project Buyer Critical Care Med 06/12/23 Wilfred Byrd MD [id number] [address] Consulting Physician Gastroenterology 03/02/24 documented as of this encounter
--- OUTSIDE RECORDS SUMMARY | 2024-11-22 12:53 | XMS_ITS | Encounter Summary ---
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 likely need care home antibiotics for 6 weeks and follow up with [facility] outpatient. Awaiting GI and ID recs. 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 Anticipate Discharge Plan/Needs: Potentially need care home antibiotics. Referral sent to [facility] home infusion(pending ID recs) Expected [...] Saturday. For after hour emergencies please call [phone]. Any referrals received after 4pm will be processed the next day. For discharge planning purposes please keep in mind that referrals can take 24 or more hours to process. Thank You Arleen/Milana Lagos RN Skein Winder, 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 Inspector Patient Centered Goal for Treatment: Back to [...] [facility] once esophagitisresolved Logan Sage MD 02/27/2024 [facility] Inpatient Cardiology Office: [phone] Please secure chat with questions * Plan of Care - Ethel De Jesus RN - 02/27/2024 10:50 AM CDT Goals: Clinical Goals for the Shift: comfort, safety, no shortess of breath Jail Patient Centered Goal for Treatment: Back to [...] for the Shift: stable VS, comfort, safety Jail Patient Centered Goal for Treatment: Back to [...] for the Shift: stable VS, comfort, safety Multifocal Lens Inspector Patient Centered Goal for Treatment: Back to [...] for the Shift: stable VS, comfort, safety Multifocal Lens Inspector Patient Centered Goal for Treatment: Back to [...] will improve Outcome: Progressing Flowsheets (Taken 02/24/2024 1502) Knowledge of risk factors and measures for [...] for the Shift: stable VS, comfort, safety Multifocal Lens Inspector Patient Centered Goal for Treatment: Back to [...] for the Shift: stable VS, comfort, safety Jail Patient Centered Goal for Treatment: Back to [...] Shift: VSS, comfort, safety and pain management Jail Patient Centered Goal for Treatment: Back to [...] Shift: VSS, comfort, safety and pain management Jail Patient Centered Goal for Treatment: Back to [...] Patient (02/20/24 0956) Admission Source: Transfer from [facility], originally from home . Impression: Feeling [...] Coverage Payor Plan Insurance Group Employer/Plan Group [facility] MEDICARE MEDICARE SOLUTIONS [id number] Payor Plan Address Payor Plan Phone Number Payor Plan Fax Number Effective Dates [address] [address] 08/18/2020 - None Entered [facility] [address] Subscriber Name Subscriber Date Member ID BRI JONES 1965 [id number] Secondary Coverage Payor Plan Insurance Group Employer/Plan Group [place] Payor Plan Address Payor Plan Phone Number Payor Plan Fax Number Effective Dates [address] [address] 02/17/2024 - 02/20/2024 [facility] [id number] Subscriber Name Subscriber Date Member ID BIR JONES 1965 [id number] Tertiary Coverage Payor Plan Insurance Group Employer/Plan Group IDPA IDPA Payor Plan Address Payor Plan Phone Number Payor Plan Fax Number Effective Dates [address] [address] 05/18/2019 - None Entered [facility] [address] Subscriber Name Subscriber Date Member ID BRI JONES 1965 [id number] Pharmacy: [id number] - [place] - [address] SEC OF [address] [place] [address] [facility] - [place] [address] [facility] [address] [facility] [place] - [facility] [place] - [address] [place] [address] [place] [address] [place] Primary Care Provider: Gama Lindsay DO Prior to Admission: Functional Status: Independent with ADLs Primary Caregiver: Self Support System: Friends/neighbors Home Care Services: No Outpatient Services: No Durable Medical Equipment: Oxygen Oxygen Detail: 3 L continuous DME Name and Contact Number: [place] [facility] Living Arrangements: Friends Type of Residence: [...] a week How often do you attend mu-ism or restorationism services?: Never Do you belong to any clubs or organizations such as mu-ism groups, unions, fraternal [...] POCT ORDERABLES - DEVICE Final Result ZULEMA [address] [address] * POCT glucose (03/07/2024 7:53 AM CDT) Glucose, POC 123 70 - 199 mg/dL Glucose comment 1 Use This Result [facility] Blood 03/07/2024 7:53 AM CDT 03/07/2024 7:53 AM CDT Gianna Dey MD LAB POCT ORDERABLES - DEVICE Final Result Performing Organization Address [facility] de Phone Number LESLIE[address] [address] * POCT glucose (03/07/2024 3:56 AM CDT) Glucose, POC 199 70 - 199 mg/dL Glucose comment 1 Use This Result [facility] Glucose comment 2 RN/MD Notified ZULEMA Blood 03/07/2024 3:56 AM CDT 03/07/2024 3:56 AM CDT Gianna Dey MD LAB POCT ORDERABLES - DEVICE Final Result Performing Organization Address [facility] de Phone Number LESLIE[address] [place] [address] * POCT glucose (03/06/2024 11:31 PM CDT) Glucose, POC 195 70 - 199 mg/dL Glucose comment 1 Use This Result [facility] Glucose comment 2 RN/MD Notified ZULEMA Blood 03/06/2024 11:3 1 PM CDT 03/06/2024 11:31 PM CDT Gianna Dey MD LAB POCT ORDERABLES - DEVICE Final Result Performing Organization Address [facility] Co de Phone Number CER[address] [address] * POCT glucose (03/06/2024 8:03 PM CDT) Glucose, POC 154 70 - 199 mg/dL Glucose comment 1 Use This Result [facility] Glucose comment 2 RN/MD Notified ZULEMA Blood 03/06/2024 8:03 PM CDT 03/06/2024 8:03 PM CDT Gianna Dey MD LAB POCT ORDERABLES - DEVICE Final Result [address] [address] * POCT glucose (03/06/2024 5:49 PM CDT) Glucose, POC 175 70 - 199 mg/dL Glucose comment 1 Use This Result [facility] Blood 03/06/2024 5:49 PM CDT 03/06/2024 5:49 PM CDT Gianna Dey MD LAB POCT ORDERABLES - DEVICE Final Result Performing Organization Address City/[facility]/ZIP Co de Phone Number [address] [place] [address] * (ABNORMAL) POCT glucose (03/06/2024 11:31 AM CDT) Glucose, POC 246(H) 70 - 199 mg/dL Glucose comment 1 Use This Result [facility] Glucose comment 2 RN/MD Notified ZULEMA Blood 03/06/2024 11:3 1 AM CDT 03/06/2024 11:31 AM CDT Gianna Dey MD LAB POCT ORDERABLES - DEVICE Final Result [address] [place] [address] * POCT glucose (03/06/2024 8:15 AM CDT) [facility] Glucose, POC 194 70 - 199 mg/dL Glucose comment 1 Use This Result [facility] Glucose comment 2 RN/MD Notified [facility] Blood 03/06/2024 8:15 AM CDT 03/06/2024 8:15 AM CDT Gianna Dey MD LAB POCT ORDERABLES - DEVICE Final Result Performing Organization Address City/[facility] Co de Phone Number [facility] [address] [facility] [place] [address] * (ABNORMAL) CBC without differential (03/06/2024 5:05 AM CDT) [facility] WBC 13.2(H) 3.8 - 9.9 K/cumm Hgb 10.7(L) 13.0 - 17.5 g/dL [facility] Hct 31.9(L) 38.9 - 50.3 % [facility] Plt 237 150 - 400 K/cumm [facility] MPV 9.9 9.1 - 12.3 fL [facility] RBC 3.01(L) 4.30 - 5.80 M/cumm [facility] MCV 106.0(H) 81.3 - 96.4 fL [facility] MCH 35.5(H) 27.1 - 33.3 pg [facility] MCHC 33.5 32.3 - 35.7 g/dL [facility] RDW CV 17.2(H) 11.1 - 14.9 % [facility] RDW SD 67.2(H) 35.7 - 48.1 fL [facility] NRBC abs 0.12(H) 0.00 - 0.01 K/cumm [facility] Blood 03/06/2024 5:05 AM CDT 03/06/2024 5:16 AM CDT Diana Rivera DO LAB BLOOD ORDERABLES Final Resul t ZULEMA [address] [address] * (ABNORMAL) POCT glucose (03/06/2024 4:11 AM CDT) Pathologist [facility] Glucose, POC 267(H) 70 - 199 mg/dL Glucose comment 1 Use This Result ZULEMA Blood 03/06/2024 4:11 AM CDT 03/06/2024 4:11 AM CDT Gianna Dey MD LAB POCT ORDERABLES - DEVICE Final Result Performing Organization Address [facility] de Phone Number LESLIE[address] [address] * (ABNORMAL) POCT glucose (03/06/2024 1:41 AM CDT) [facility] Glucose, POC 286(H) 70 - 199 mg/dL Glucose comment 1 Use This Result ZULEMA Blood 03/06/2024 1:41 AM CDT 03/06/2024 1:41 AM CDT Gianna Dey MD LAB POCT ORDERABLES - DEVICE Final Result Performing Organization Address [facility] de Phone Number LESL[address] [address] * eGFR (03/06/2024 12:16 AM CDT) Pathologist [facility] eGFR >90 >=60 mL/min/1. 73 m2 Comment: [...] DO LAB BLOOD ORDERABLES Final Resul t [facility] [address] [place] [address] * Basic metabolic panel (03/06/2024 12:16 AM CDT) Sodium 136 135 - 145 mmol/L Potassium, pl 4.7 3.3 - 4.9 mmol/L [facility] Chloride 101 97 - 110 mmol/L [facility] CO2 27 22 - 32 mmol/L [facility] Anion gap 8 2 - 15 mmol/L [facility] BUN 23 6 - 25 mg/dL [facility] Creatinine 0.94 0.80 - 1.30 mg/dL [facility] Glucose 182 70 - 199 mg/dL [facility] [...] 2022. Calcium 8.6 8.5 - 10.3 mg/dL [facility] Blood 03/06/2024 12:1 6 AM CDT 03/06/2024 12:39 AM CDT Diana Rivera DO LAB BLOOD ORDERABLES Final Resul t Performing Organization Address [facility] Co de Phone Number [address] [place] [address] * (ABNORMAL) POCT glucose (03/05/2024 11:49 PM CDT) Glucose, POC 212(H) 70 - 199 mg/dL Glucose comment 1 Use This Result [facility] Blood 03/05/2024 11:4 9 PM CDT 03/05/2024 11:49 PM CDT Gianna Dey MD LAB POCT ORDERABLES - DEVICE Final Result Performing Organization Address [facility] de Phone Number [address] [address] * (ABNORMAL) POCT glucose (03/05/2024 8:23 PM CDT) Glucose, POC 222(H) 70 - 199 mg/dL Blood 03/05/2024 8:23 PM CDT 03/05/2024 8:23 PM CDT Gianna Dey MD LAB POCT ORDERABLES - DEVICE Final Result Performing Organization Address [facility] Co de Phone Number [address] [place] [address] * POCT glucose (03/05/2024 4:25 PM CDT) Glucose, POC 185 70 - 199 mg/dL Glucose comment 1 Use This Result [facility] Glucose comment 2 RN/MD Notified [facility] Blood 03/05/2024 4:25 PM CDT 03/05/2024 4:25 PM CDT Gianna Dey MD LAB POCT ORDERABLES - DEVICE Final Result Performing Organization Address [facility] Co de Phone Number [address] [place] [address] * POCT glucose (03/05/2024 11:10 AM CDT) [facility] Glucose, POC 83 70 - 199 mg/dL Blood 03/05/2024 11:1 0 AM CDT 03/05/2024 11:10 AM CDT Gianna Dey MD LAB POCT ORDERABLES - DEVICE Final Result Performing Organization Address [facility] de Phone Number [address] [place] [address] * (ABNORMAL) Manual Differential (03/05/2024 7:49 AM CDT) [facility] Differential Manual Cells Counted 100 [facility] Neutrophil abs 10.2(H) 1.5 - 6.5 K/cumm [facility] Lymphocyte abs 2.4 0.8 - 3.3 K/cumm [facility] Monocyte abs 1.3(H) 0.2 - 0.8 K/cumm [facility] Eosinophil abs 0.1 0.0 - 0.5 K/cumm [facility] Neutrophil pct 73.0 % [facility] Comment: Interpretive Data Percent cell count reference ranges are not reported, since discordance with absolute values may lead to misinterpretation of CBC data. Current Interpretive Data was last revised on 2018. Lymphocyte pct 16.0 % [facility] Comment: Interpretive Data Percent cell count reference ranges are not reported, since discordance with absolute values may lead to misinterpretation of CBC data. Current Interpretive Data was last revised on 2018. Monocyte pct 9.0 % [facility] Comment: Interpretive Data Percent cell count reference ranges are not reported, since discordance with absolute values may lead to misinterpretation of CBC data. Current Interpretive Data was last revised on 2018. Eosinophil pct 1.0 % [facility] Comment: Interpretive Data Percent cell count reference ranges are not reported, since discordance with absolute values may lead to misinterpretation of CBC data. Current Interpretive Data was last revised on 2018. Variant lymph pct 1.0(H) 0.0 - 0.0 % [facility] RBC morphology Present(A) [facility] Polychromasia 3-7/HPF(A) [facility] Poikilocytosis Moderate(A) [facility] Macrocytes 8-15/HPF(A) [facility] Elliptocytes 3-7/HPF(A) [facility] Platelet estimate Automated Count Confirmed [facility] Blood 03/05/2024 7:49 AM CDT 03/05/2024 8:30 AM CDT us Osmar Orta MD LAB BLOOD ORDERABLES Final R esult [facility] [address] [place] [address] * eGFR (03/05/2024 7:49 AM [...] MD LAB BLOOD ORDERABLES Final R esult [facility] [address] [place] [address] * (ABNORMAL) Comprehensive metabolic panel (03/05/2024 7:49 AM CDT) Sodium 136 135 - 145 mmol/L Potassium, pl 4.3 3.3 - 4.9 mmol/L [facility] Chloride 101 97 - 110 mmol/L [facility] CO2 27 22 - 32 mmol/L [facility] Anion gap 8 2 - 15 mmol/L [facility] BUN 25 6 - 25 mg/dL [facility] Creatinine 0.98 0.80 - 1.30 mg/dL [facility] Glucose 93 70 - 199 mg/dL [facility] [...] 2022. Calcium 8.9 8.5 - 10.3 mg/dL [facility] Bilirubin, total 0.3 0.1 - 1.2 mg/dL [facility] Protein, pl 6.9 6.5 - 8.5 g/dL [facility] Albumin 3.3(L) 3.5 - 5.0 g/dL [facility] Alk phos 148(H) 40 - 130 Units/L [facility] ALT 36 7 - 55 Units/L [facility] AST 64(H) 10 - 50 Units/L [facility] Blood 03/05/2024 7:49 AM CDT 03/05/2024 8:30 AM CDT us Osmar Orta MD LAB BLOOD ORDERABLES Final R esult [facility] [address] [place] [address] * (ABNORMAL) CBC with auto differential (03/05/2024 7:49 AM CDT) WBC 14.0(H) 3.8 - 9.9 K/cumm Hgb 11.8(L) 13.0 - 17.5 g/dL [facility] Hct 35.7(L) 38.9 - 50.3 % [facility] Plt 281 150 - 400 K/cumm [facility] MPV 9.9 9.1 - 12.3 fL [facility] RBC 3.31(L) 4.30 - 5.80 M/cumm [facility] MCV 107.9(H) 81.3 - 96.4 fL [facility] MCH 35.6(H) 27.1 - 33.3 pg [facility] MCHC 33.1 32.3 - 35.7 g/dL [facility] RDW CV 17.7(H) 11.1 - 14.9 % [facility] RDW SD 69.6(H) 35.7 - 48.1 fL [facility] NRBC abs 0.26(H) 0.00 - 0.01 K/cumm [facility] Blood 03/05/2024 7:49 AM CDT 03/05/2024 8:30 AM CDT Osmar Orta MD LAB BLOOD ORDERABLES Final R esult Performing Organization Address [facility] Co de Phone Number LESLIE[address] [place] [address] * POCT glucose (03/05/2024 7:37 AM CDT) Glucose, POC 110 70 - 199 mg/dL Blood 03/05/2024 7:37 AM CDT 03/05/2024 7:37 AM CDT Gianna Dey MD LAB POCT ORDERABLES - DEVICE Final Result Performing Organization Address [facility] de Phone Number LESLIE[address] [place] [address] * POCT glucose (03/05/2024 12:36 AM CDT) Glucose, POC 147 70 - 199 mg/dL Glucose comment 1 Use This Result [facility] Glucose comment 2 RN/MD Notified [facility] Blood 03/05/2024 12:3 6 AM CDT 03/05/2024 12:36 AM CDT Gianna Dey MD LAB POCT ORDERABLES - DEVICE Final Result Performing Organization Address [facility] de Phone Number [address] [place] [address] * (ABNORMAL) POCT glucose (03/04/2024 8:50 PM CDT) Glucose, POC 231(H) 70 - 199 mg/dL Blood 03/04/2024 8:50 PM CDT 03/04/2024 8:50 PM CDT Gianna Dey MD LAB POCT ORDERABLES - DEVICE Final Result Performing Organization Address [facility] Co de Phone Number LESLIE[address] [address] * POCT glucose (03/04/2024 4:49 PM CDT) Glucose, POC 173 70 - 199 mg/dL Glucose comment 1 Use This Result [facility] Blood 03/04/2024 4:49 PM CDT 03/04/2024 4:49 PM CDT us Gianna Dey MD LAB POCT ORDERABLES - DEVICE Final Result Performing Organization Address [facility] de Phone Number [address] [address] * HIV 1/2 Antibody plus p24 Antigen Blood (03/04/2024 12:58 PM CDT) [facility] HIV 1/2 ab + p24 [...] O RDERABLES Final Result Performing Organization Address [facility] Co de Phone Number [address] [address] * (ABNORMAL) POCT glucose (03/04/2024 11:56 AM CDT) Glucose, POC 232(H) 70 - 199 mg/dL Glucose comment 1 Use This Result [facility] Blood 03/04/2024 11:5 6 AM CDT 03/04/2024 11:56 AM CDT Gianna Dey MD LAB POCT ORDERABLES - DEVICE Final Result Performing Organization Address City/[facility]/ZIP Co de Phone Number ZULEMA [address] [place] [address] * POCT glucose (03/04/2024 7:42 AM CDT) Pathologist [facility] Glucose, POC 117 70 - 199 mg/dL Glucose comment 1 Use This Result [facility] Blood 03/04/2024 7:42 AM CDT 03/04/2024 7:42 AM CDT Gianna Dey MD LAB POCT ORDERABLES - DEVICE Final Result Performing Organization Address [facility] de Phone Number [facility] [place] [address] * eGFR (03/04/2024 5:11 AM CDT) Pathologist [facility] eGFR >90 >=60 mL/min/1. 73 m2 Comment: [...] MD LAB BLOOD ORDERABLES Final R esult [facility] [address] [place] [address] * (ABNORMAL) Manual Differential (03/04/2024 5:11 AM CDT) Differential Manual Cells Counted 100 [facility] Neutrophil abs 10.0(H) 1.5 - 6.5 K/cumm [facility] Imm gran abs 0.2(H) 0.0 - 0.1 K/cumm [facility] Lymphocyte abs 6.3(H) 0.8 - 3.3 K/cumm [facility] Monocyte abs 0.3 0.2 - 0.8 K/cumm [facility] Basophil abs 0.2(H) 0.0 - 0.1 K/cumm [facility] Neutrophil pct 59.0 % [facility] Comment: Interpretive Data Percent cell count reference ranges are not reported, since discordance with absolute values may lead to misinterpretation of CBC data. Current Interpretive Data was last revised on 2018. Lymphocyte pct 37.0 % [facility] Comment: Interpretive Data Percent cell count reference ranges are not reported, since discordance with absolute values may lead to misinterpretation of CBC data. Current Interpretive Data was last revised on 2018. Monocyte pct 2.0 % [facility] Comment: Interpretive Data Percent cell count reference ranges are not reported, since discordance with absolute values may lead to misinterpretation of CBC data. Current Interpretive Data was last revised on 2018. Basophil pct 1.0 % [facility] Comment: Interpretive Data Percent cell count reference ranges are not reported, since discordance with absolute values may lead to misinterpretation of CBC data. Current Interpretive Data was last revised on 2018. Metamyelocyte pct 1.0 % [facility] Anisocytosis Marked(A) [facility] Poikilocytosis Moderate(A) [facility] Macrocytes > 15/HPF(A) [facility] Elliptocytes 3-7/HPF(A) [facility] Target cells 3-7/HPF(A) [facility] Platelet estimate Automated Count Confirmed [facility] Blood 03/04/2024 5:11 AM CDT 03/04/2024 5:26 AM CDT us Osmar Orta MD LAB BLOOD ORDERABLES Final R esult [facility] Department [place] [address] * (ABNORMAL) CBC with auto differential (03/04/2024 5:11 AM CDT) WBC 17.0(H) 3.8 - 9.9 K/cumm Hgb 12.0(L) 13.0 - 17.5 g/dL [facility] Hct 35.6(L) 38.9 - 50.3 % [facility] Plt 321 150 - 400 K/cumm [facility] MPV 9.6 9.1 - 12.3 fL [facility] RBC 3.35(L) 4.30 - 5.80 M/cumm [facility] MCV 106.3(H) 81.3 - 96.4 fL [facility] MCH 35.8(H) 27.1 - 33.3 pg [facility] MCHC 33.7 32.3 - 35.7 g/dL [facility] RDW CV 17.7(H) 11.1 - 14.9 % [facility] RDW SD 68.4(H) 35.7 - 48.1 fL [facility] NRBC abs 0.51(H) 0.00 - 0.01 K/cumm [facility] Blood 03/04/2024 5:11 AM CDT 03/04/2024 5:26 AM CDT us Osmar Orta MD LAB BLOOD ORDERABLES Edited Result - Final [facility] [address] [facility] Department [place] [address] * (ABNORMAL) Comprehensive metabolic panel (03/04/2024 5:11 AM CDT) Sodium 136 135 - 145 mmol/L Potassium, pl 5.4(H) 3.3 - 4.9 mmol/L [facility] Comment:Hemolyzed; Potassium value may be falsely elevated by as much as 1.0 mmol/L. Suggest redraw and reanalysis. Chloride 98 97 - 110 mmol/L [facility] CO2 29 22 - 32 mmol/L [facility] Anion gap 9 2 - 15 mmol/L [facility] BUN 23 6 - 25 mg/dL [facility] Creatinine 0.96 0.80 - 1.30 mg/dL [facility] Glucose 145 70 - 199 mg/dL [facility] [...] 2022. Calcium 9.2 8.5 - 10.3 mg/dL [facility] Bilirubin, total 0.2 0.1 - 1.2 mg/dL [facility] Protein, pl 7.4 6.5 - 8.5 g/dL [facility] Albumin 3.6 3.5 - 5.0 g/dL [facility] Alk phos 132(H) 40 - 130 Units/L [facility] ALT 26 7 - 55 Units/L [facility] AST 58(H) 10 - 50 Units/L [facility] Comment:Hemolyzed; result ma y be falsely elevated Blood 03/04/2024 5:11 AM CDT 03/04/2024 5:26 AM CDT us Osmar Orta MD LAB BLOOD ORDERABLES Final R esult Performing Organization Address City/[facility] Co de Phone Number ZULEMA [address] [facility] [place] [address] * eGFR (03/04/2024 12:05 AM CDT) eGFR [...] ORDERABLES Final Resul t Performing Organization Address [facility] Co de Phone Number ZULEMA [address] [facility] [place] [address] * (ABNORMAL) Basic metabolic panel (03/04/2024 12:05 AM CDT) Pathologist [facility] Sodium 136 135 - 145 mmol/L Potassium, pl 5.1(H) 3.3 - 4.9 mmol/L [facility] Comment:Hemolyzed; Potassium value may be falsely elevated by as much as 1.0 mmol/L. Suggest redraw and reanalysis. Chloride 98 97 - 110 mmol/L [facility] CO2 27 22 - 32 mmol/L [facility] Anion gap 11 2 - 15 mmol/L [facility] BUN 25 6 - 25 mg/dL [facility] Creatinine 1.12 0.80 - 1.30 mg/dL [facility] Glucose 158 70 - 199 mg/dL [facility] Comment: Delta - Results Reviewed Interpretive [...] 2022. Calcium 9.2 8.5 - 10.3 mg/dL [facility] Blood 03/04/2024 12:0 5 AM CDT 03/04/2024 12:33 AM CDT us Diana Rivera DO LAB BLOOD ORDERABLES Final Resul t [facility] [address] [facility] Department [place] [address] * POCT glucose (03/03/2024 11:07 PM CDT) Glucose, POC 154 70 - 199 mg/dL Glucose comment 1 Use This Result [facility] Glucose comment 2 RN/MD Notified [facility] Blood 03/03/2024 11:0 7 PM CDT 03/03/2024 11:07 PM CDT Gianna Dey MD LAB POCT ORDERABLES - DEVICE Final Result Performing Organization Address City/[facility] Co de Phone Number ZULEMA [address] [address] * (ABNORMAL) POCT glucose (03/03/2024 7:06 PM CDT) Glucose, POC 225(H) 70 - 199 mg/dL Blood 03/03/2024 7:06 PM CDT 03/03/2024 7:06 PM CDT Gianna Dey MD LAB POCT ORDERABLES - DEVICE Final Result Performing Organization Address [facility] de Phone Number ZULEMA [address] [address] * Urinalysis reflex to microscopic (03/03/2024 6:14 PM CDT) Color, ur Straw Yellow Clarity, ur Clear Clear [facility] Specific gravity, ur 1.008 1.003 - 1.030 [facility] pH, urine 7.0 [facility] Comment: Interpretive Data ? Urine pH is affected by diet, medications, systemic acid-base disturbances, and renal tubular function. ??pH may affect urinary stone formation. ??For example, urine pH below 6.0 may help reduce the tendency for calcium phosphate stones and pH greater than 6.0 may reduce the tendency for uric acid stone formation. Source: [facility] Current Interpretive Data was last revised on 2017 Protein, ur ql Negative Negative [facility] Glucose, ur ql Negative Negative [facility] Ketones, ur Negative Negative [facility] Bilirubin, ur Negative Negative [facility] Blood, ur Negative Negative [facility] Urobilinogen, ur <2.0 <2.0 mg/dL [facility] Nitrite, ur Negative Negative [facility] Leukocyte esterase, ur Negative Negative [facility] UA reflex comment Reflex conditions for microscopic UA not met. ZULEMA Urine 03/03/2024 6:14 PM CDT 03/03/2024 6:38 PM CDT us Osmar Orta MD LAB URINE ORDERABLES Final R esult [facility] [place] [address] * POCT glucose (03/03/2024 5:05 PM CDT) Glucose, POC 183 70 - 199 mg/dL Glucose comment 1 Use This Result [facility] Blood 03/03/2024 5:05 PM CDT 03/03/2024 5:05 PM CDT us Gianna Dey MD LAB POCT ORDERABLES - DEVICE Final Result Performing Organization Address [facility] Co de Phone Number [place] [address] [place] [address] * Blood culture Blood (03/03/2024 4:57 PM CDT) Pathologist [facility] Report Final Report: No growth Comment:Testing performed by : [facility], [address] [facility], [place]., [address] Blood 03/03/2024 4:57 PM CDT 03/03/2024 7:51 PM CDT Narrative [facility] - 03/08/2024 7:00 AM CDT From [...] organism identification may be performed using the Cart[employer] ABigene Gram-Positive Blood Culture Assay. This assay detects microbial DNA in positive blood culture broth via hybridization of target DNA to capture oligonucleotides on a microarray. This assay has been cleared by the [place] Food and Drug Administration and its performance characteristics have been verified by the [facility]. 5. ?For questions about this culture, contact the Microbiology Laboratory at [phone]. Interpretive data was last revised on 2020. Osmar Orta MD LAB MICROBIOLOGY - GENERAL O RDERABLES Final Result ZULEMA [address] [facility] Department [place] [address] * Blood culture Blood Arm, left (03/03/2024 4:11 PM CDT) Report Final Report: No growth Comment:Testing performed by : [facility], [address] [facility] [place]., [address] Blood (Arm, left) 03/03/2024 4:11 PM CDT [...] performance characteristics have been verified by the [facility]. 5. ?For questions about this culture, contact the Microbiology Laboratory at [phone]. Interpretive data was last revised on 2020. Osmar Orta MD LAB MICROBIOLOGY - GENERAL O RDERABLES Final Result Performing Organization Address [facility] Co de Phone Number ZULEMA [address] [place] [address] * MRSA Only (Staphylococcus aureus) PCR Nasal (03/03/2024 11:56 AM CDT) [facility] PCR Scrn, Methicillin resistant Staphylococcus aureus (MRSA) Not Detected Not Detected Comment: Interpretive Data Testing performed using Nucleic Acid Amplification with the [employer] Xpert MRSA NxG Assay. This assay detects target DNA from mecA, mecC and the SCCmec insertion site of Staphylococcus aureus using Real-Time PCR and has been cleared by the FDA. Performance characteristics have been verified by the [facility]. Current Interpretive Data was last revised on 2023 Nasal 03/03/2024 11:5 6 AM CDT 03/03/2024 12:24 PM CDT Osmar Orta MD LAB MICROBIOLOGY - GENERAL O RDERABLES Final Result Performing Organization Address [facility] Co de Phone Number ZULEMA [address] [address] * POCT glucose (03/03/2024 11:55 AM CDT) Glucose, POC 169 70 - 199 mg/dL Glucose comment 1 Use This Result ZULEMA Blood 03/03/2024 11:5 5 AM CDT 03/03/2024 11:55 AM CDT Gianna Dey MD LAB POCT ORDERABLES - DEVICE Final Result Performing Organization Address [facility] de Phone Number LESLIE[address] [place] [address] * POCT glucose (03/03/2024 7:38 AM CDT) Glucose, POC 172 70 - 199 mg/dL Glucose comment 1 Use This Result [facility] Blood 03/03/2024 7:38 AM CDT 03/03/2024 7:38 AM CDT Gianna Dey MD LAB POCT ORDERABLES - DEVICE Final Result Performing Organization Address [facility] de Phone Number [address] [place] [address] * POCT glucose (03/03/2024 5:53 AM CDT) Glucose, POC 96 70 - 199 mg/dL Glucose comment 1 Use This Result [facility] Blood 03/03/2024 5:53 AM CDT 03/03/2024 5:53 AM CDT Gianna Dey MD LAB POCT ORDERABLES - DEVICE Final Result Performing Organization Address [facility] de Phone Number [address] [place] [address] * POCT glucose (03/03/2024 4:30 AM CDT) Glucose, POC 112 70 - 199 mg/dL Glucose comment 1 Use This Result [facility] Blood 03/03/2024 4:30 AM CDT 03/03/2024 4:30 AM CDT us Gianna Dey MD LAB POCT ORDERABLES - DEVICE Final Result Performing Organization Address [facility] de Phone Number ZULEMA [address] [place] [address] * eGFR (03/03/2024 4:23 AM CDT) eGFR [...] ORDERABLES Final R esult Performing Organization Address [facility] Co de Phone Number ZULEMA [address] [place] [address] * (ABNORMAL) Manual Differential (03/03/2024 4:23 AM CDT) Pathologist [facility] Differential Manual Cells Counted 100 [facility] Neutrophil abs 11.0(H) 1.5 - 6.5 K/cumm [facility] Lymphocyte abs 8.1(H) 0.8 - 3.3 K/cumm [facility] Monocyte abs 1.7(H) 0.2 - 0.8 K/cumm [facility] Neutrophil pct 53.0 % [facility] Comment: Interpretive Data Percent cell count reference ranges are not reported, since discordance with absolute values may lead to misinterpretation of CBC data. Current Interpretive Data was last revised on 2018. Lymphocyte pct 39.0 % [facility] Comment: Interpretive Data Percent cell count reference ranges are not reported, since discordance with absolute values may lead to misinterpretation of CBC data. Current Interpretive Data was last revised on 2018. Monocyte pct 8.0 % [facility] Comment: Interpretive Data Percent cell count reference ranges are not reported, since discordance with absolute values may lead to misinterpretation of CBC data. Current Interpretive Data was last revised on 2018. RBC morphology Consistent with RBC Indicies [facility] Platelet estimate Automated Count Confirmed [facility] Blood 03/03/2024 4:23 AM CDT 03/03/2024 5:21 AM CDT us Osmar Orta MD LAB BLOOD ORDERABLES Final R esult [facility] [address] [facility] Department [place] [address] * (ABNORMAL) Comprehensive metabolic panel (03/03/2024 4:23 AM CDT) [facility] Sodium 138 135 - 145 mmol/L Potassium, pl 4.5 3.3 - 4.9 mmol/L [facility] Comment:Hemolyzed; Potassium value may be falsely elevated by as much as 1.0 mmol/L. Suggest redraw and reanalysis. Chloride 102 97 - 110 mmol/L [facility] CO2 25 22 - 32 mmol/L [facility] Anion gap 11 2 - 15 mmol/L [facility] BUN 26(H) 6 - 25 mg/dL [facility] Creatinine 0.82 0.80 - 1.30 mg/dL [facility] Glucose 53(C) 70 - 199 mg/dL [facility] Comment: Delta - Results Reviewed ??Critical Result called to and read back by [email or web address], DATE: 2024-03-03 06:18:02 BY: [email or web address] Interpretive Data Fasting glucose >/= 126 mg/dl [...] 2022. Calcium 9.0 8.5 - 10.3 mg/dL [facility] Bilirubin, total 0.2 0.1 - 1.2 mg/dL [facility] Protein, pl 6.7 6.5 - 8.5 g/dL [facility] Albumin 3.6 3.5 - 5.0 g/dL [facility] Alk phos 122 40 - 130 Units/L [facility] ALT 18 7 - 55 Units/L [facility] AST 56(H) 10 - 50 Units/L [facility] Comment:Hemolyzed; result ma y be falsely elevated Blood 03/03/2024 4:23 AM CDT 03/03/2024 5:21 AM CDT us Osmar Orta MD LAB BLOOD ORDERABLES Final R esult [facility] [address] [facility] Department [place] [address] * (ABNORMAL) CBC with auto differential (03/03/2024 4:23 AM CDT) WBC 20.8(H) 3.8 - 9.9 K/cumm Hgb 11.6(L) 13.0 - 17.5 g/dL [facility] Hct 36.1(L) 38.9 - 50.3 % [facility] Plt 324 150 - 400 K/cumm [facility] MPV 9.9 9.1 - 12.3 fL [facility] RBC 3.31(L) 4.30 - 5.80 M/cumm [facility] MCV 109.1(H) 81.3 - 96.4 fL [facility] MCH 35.0(H) 27.1 - 33.3 pg [facility] MCHC 32.1(L) 32.3 - 35.7 g/dL [facility] RDW CV 17.6(H) 11.1 - 14.9 % [facility] RDW SD 70.2(H) 35.7 - 48.1 fL [facility] NRBC abs 0.63(H) 0.00 - 0.01 K/cumm [facility] Blood 03/03/2024 4:23 AM CDT 03/03/2024 5:21 AM CDT us Osmar Orta MD LAB BLOOD ORDERABLES Final R esult Performing Organization Address City/[facility]/ZIP Co de Phone Number ZULEMA [address] [place] [address] * POCT glucose (03/03/2024 12:54 AM CDT) Glucose, POC 157 70 - 199 mg/dL Glucose comment 1 Use This Result [facility] Blood 03/03/2024 12:5 4 AM CDT 03/03/2024 12:54 AM CDT Gianna Dey MD LAB POCT ORDERABLES - DEVICE Final Result Performing Organization Address City/[facility]/ZIP Co de Phone Number LESLIE[address] [place] [place] [address] * POCT glucose (03/02/2024 7:14 PM CDT) Glucose, POC 170 70 - 199 mg/dL Glucose comment 1 Use This Result [facility] Blood 03/02/2024 7:14 PM CDT 03/02/2024 7:14 PM CDT Gianna Dey MD LAB POCT ORDERABLES - DEVICE Final Result [facility] [address] [facility] [place] [address] * CT Chest WO Contrast (03/02/2024 6:51 [...] findings. FINDINGS: LUNGS: ??Coarse opacity in the bbzen-qbldkzo-amqq-upper lungs are new since 04/03/2022, superimposed on [...] ??Unremarkable. ?? IMPRESSION: Coarse opacities in the bftzf-pabdpdt-bqab-upper lungs are new since 04/03/2022, favored to [...] D: ??03/02/2024 7:43 PM T: Report ID: [id number] Reading Location: ??[id number] Procedure Note Kaushik Nur MD - 03/02/2024 [...] findings. FINDINGS: LUNGS: Coarse opacity in the gsoby-etasjcj-gzyi-upper lungs are new since 04/03/2022, superimposed on [...] WALL: Unremarkable. IMPRESSION: Coarse opacities in the weqvt-skdsjjn-xxbd-upper lungs are new since 04/03/2022, favored to [...] signed by Kaushik FERREIRA T: Report ID: [id number] Reading Location: [id number] us Osmar Orta MD IMG CT PROCEDURES Final Resu lt * (ABNORMAL) POCT glucose (03/02/2024 4:56 PM CDT) Glucose, POC 308(H) 70 - 199 mg/dL Glucose comment 1 Use This Result [facility] Glucose comment 2 RN/MD Notified [facility] Blood 03/02/2024 4:56 PM CDT 03/02/2024 4:56 PM CDT Gianna Dey MD LAB POCT ORDERABLES - DEVICE Final Result Performing Organization Address [facility] de Phone Number ZULEMA [address] [address] * (ABNORMAL) POCT glucose (03/02/2024 12:48 PM CDT) Glucose, POC 335(H) 70 - 199 mg/dL Glucose comment 1 Use This Result [facility] Glucose comment 2 RN/MD Notified [facility] Blood 03/02/2024 12:4 8 PM CDT 03/02/2024 12:48 PM CDT Gianna Dey MD LAB POCT ORDERABLES - DEVICE Final Result Performing Organization Address [facility] de Phone Number [address] [address] * POCT glucose (03/02/2024 8:07 AM CDT) Glucose, POC 121 70 - 199 mg/dL Glucose comment 1 Use This Result [facility] Glucose comment 2 RN/MD Notified [facility] Blood 03/02/2024 8:07 AM CDT 03/02/2024 8:07 AM CDT Gianna Dey MD LAB POCT ORDERABLES - DEVICE Final Result Performing Organization Address City/[facility] Co de Phone Number [address] [address] * (ABNORMAL) Manual Differential (03/02/2024 5:24 AM CDT) Differential Manual Cells Counted 100 [facility] Neutrophil abs 8.3(H) 1.5 - 6.5 K/cumm [facility] Lymphocyte abs 7.6(H) 0.8 - 3.3 K/cumm [facility] Monocyte abs 0.3 0.2 - 0.8 K/cumm [facility] Neutrophil pct 51.0 % [facility] Comment: Interpretive Data Percent cell count reference ranges are not reported, since discordance with absolute values may lead to misinterpretation of CBC data. Current Interpretive Data was last revised on 2018. Lymphocyte pct 47.0 % [facility] Comment: Interpretive Data Percent cell count reference ranges are not reported, since discordance with absolute values may lead to misinterpretation of CBC data. Current Interpretive Data was last revised on 2018. Monocyte pct 2.0 % [facility] Comment: Interpretive Data Percent cell count reference ranges are not reported, since discordance with absolute values may lead to misinterpretation of CBC data. Current Interpretive Data was last revised on 2018. RBC morphology Present(A) [facility] Polychromasia 3-7/HPF(A) [facility] Hypochromasia 3-7/HPF(A) [facility] Anisocytosis Slight(A) [facility] Macrocytes 3-7/HPF(A) [facility] Teardrop cells 3-7/HPF(A) [facility] Gaitan[place] bodies Present(A) [facility] Platelet estimate Adequate [facility] Blood 03/02/2024 5:24 AM CDT 03/02/2024 5:48 AM CDT us Saim Rivera DO LAB BLOOD ORDERABLES Final Resul t [place] [id number] [facility] Department of Laboratories [place], [place] [id number] * (ABNORMAL) CBC without differential (03/02/2024 5:24 AM CDT) WBC 16.2(H) 3.8 - 9.9 K/cumm Hgb 11.4(L) 13.0 - 17.5 g/dL [facility] Hct 35.2(L) 38.9 - 50.3 % [facility] Plt 346 150 - 400 K/cumm [facility] MPV 9.8 9.1 - 12.3 fL [facility] RBC 3.24(L) 4.30 - 5.80 M/cumm [facility] MCV 108.6(H) 81.3 - 96.4 fL ZULEMA [...] Resu lt - Final ZULEMA [facility] [address] [facility] Department of Laboratories [place], [place] [id number] * eGFR (03/01/2024 11:38 PM CDT) eGFR [...] 8 PM CDT 03/01/2024 11:49 PM CDT [facility] Rivera DO LAB BLOOD ORDERABLES Final Resul t Performing Organization Address [facility] Co de Phone Number [address] [place] [address] * Basic metabolic panel (03/01/2024 11:38 PM CDT) Pathologist [facility] Sodium 137 135 - 145 mmol/L Potassium, pl 4.2 3.3 - 4.9 mmol/L [facility] Chloride 101 97 - 110 mmol/L [facility] CO2 29 22 - 32 mmol/L [facility] Anion gap 7 2 - 15 mmol/L [facility] BUN 24 6 - 25 mg/dL [facility] Creatinine 0.82 0.80 - 1.30 mg/dL [facility] Glucose 159 70 - 199 mg/dL [facility] [...] 2022. Calcium 8.6 8.5 - 10.3 mg/dL [facility] Blood 03/01/2024 11:3 8 PM CDT 03/01/2024 11:49 PM CDT Sa Rivera DO LAB BLOOD ORDERABLES Final Resul t Performing Organization Address [facility] Co de Phone Number [address] [address] * POCT glucose (03/01/2024 10:22 PM CDT) Glucose, POC 150 70 - 199 mg/dL Blood 03/01/2024 10:2 2 PM CDT 03/01/2024 10:22 PM CDT Gianna Dey MD LAB POCT ORDERABLES - DEVICE Final Result Performing Organization Address City/[facility] Co de Phone Number [address] [address] * (ABNORMAL) POCT glucose (03/01/2024 7:23 PM CDT) Glucose, POC 332(H) 70 - 199 mg/dL Glucose comment 1 Use This Result [facility] Blood 03/01/2024 7:23 PM CDT 03/01/2024 7:23 PM CDT Gianna Dey MD LAB POCT ORDERABLES - DEVICE Final Result Performing Organization Address [facility] Co de Phone Number [address] [address] * (ABNORMAL) POCT glucose (03/01/2024 4:53 PM CDT) Glucose, POC 344(H) 70 - 199 mg/dL Glucose comment 1 Use This Result [facility] Glucose comment 2 RN/MD Notified [facility] Blood 03/01/2024 4:53 PM CDT 03/01/2024 4:53 PM CDT Gianna Dey MD LAB POCT ORDERABLES - DEVICE Final Result Performing Organization Address City/[facility]/ZIP Co de Phone Number [address] [address] * POCT glucose (03/01/2024 11:52 AM CDT) Glucose, POC 178 70 - 199 mg/dL Glucose comment 1 Use This Result [facility] Glucose comment 2 RN/MD Notified [facility] Blood 03/01/2024 11:5 2 AM CDT 03/01/2024 11:52 AM CDT Gianna Dey MD LAB POCT ORDERABLES - DEVICE Final Result Performing Organization Address City/[facility]/ZIP Co de Phone Number [address] [place] [address] * (ABNORMAL) POCT glucose (03/01/2024 8:02 AM CDT) Glucose, POC 226(H) 70 - 199 mg/dL Glucose comment 1 Use This Result [facility] Glucose comment 2 RN/ Notified [facility] Blood 03/01/2024 8:02 AM CDT 03/01/2024 8:02 AM CDT Gianna Dey MD LAB POCT ORDERABLES - DEVICE Final Result Performing Organization Address [facility] Co de Phone Number [address] [place] [address] * (ABNORMAL) POCT glucose (03/01/2024 3:46 AM CDT) Glucose, POC 202(H) 70 - 199 mg/dL Glucose comment 1 Use This Result [facility] Glucose comment 2 RN/ Notified [facility] Blood 03/01/2024 3:46 AM CDT 03/01/2024 3:46 AM CDT Diana Rivera DO LAB POCT ORDERABLES - DEVICE Fin al Result Performing Organization Address City/[facility]/ZIP Co de Phone Number [address] [place] [address] * POCT glucose (03/01/2024 12:02 AM CDT) Glucose, POC 173 70 - 199 mg/dL Blood 03/01/2024 12:0 2 AM CDT 03/01/2024 12:02 AM CDT Saim Rivera DO LAB POCT ORDERABLES - DEVICE Fin al Result Performing Organization Address City/[facility] Co de Phone Number LESLIE[address] [place] [address] * POCT glucose (02/29/2024 7:30 PM CDT) Glucose, POC 164 70 - 199 mg/dL Glucose comment 1 Use This Result [facility] Blood 02/29/2024 7:30 PM CDT 02/29/2024 7:30 PM CDT [facility] Rivera DO LAB POCT ORDERABLES - DEVICE Fin al Result Performing Organization Address [facility] Co de Phone Number [address] [place] [address] * (ABNORMAL) POCT glucose (02/29/2024 6:12 PM CDT) Glucose, POC 254(H) 70 - 199 mg/dL Blood 02/29/2024 6:12 PM CDT 02/29/2024 6:12 PM CDT [facility] Rivera DO LAB POCT ORDERABLES - DEVICE Fin al Result Performing Organization Address City/[facility] Co de Phone Number [address] [address] * (ABNORMAL) POCT glucose (02/29/2024 4:33 PM CDT) Glucose, POC 373(H) 70 - 199 mg/dL Blood 02/29/2024 4:33 PM CDT 02/29/2024 4:33 PM CDT Saim Rivera DO LAB POCT ORDERABLES - DEVICE Fin al Result Performing Organization Address City/[facility] Co de Phone Number ZULEMA [address] [address] * POCT glucose (02/29/2024 11:20 AM CDT) [facility] Glucose, POC 144 70 - 199 mg/dL Blood 02/29/2024 11:2 0 AM CDT 02/29/2024 11:20 AM CDT [facility] Rivera DO LAB POCT ORDERABLES - DEVICE Fin al Result Performing Organization Address [facility] de Phone Number [address] [address] * (ABNORMAL) CBC without differential (02/29/2024 7:34 AM CDT) [facility] WBC 12.4(H) 3.8 - 9.9 K/cumm Hgb 11.2(L) 13.0 - 17.5 g/dL [facility] Hct 34.0(L) 38.9 - 50.3 % [facility] Plt 365 150 - 400 K/cumm [facility] MPV 9.9 9.1 - 12.3 fL [facility] RBC 3.17(L) 4.30 - 5.80 M/cumm [facility] MCV 107.3(H) 81.3 - 96.4 fL [facility] MCH 35.3(H) 27.1 - 33.3 pg [facility] MCHC 32.9 32.3 - 35.7 g/dL [facility] RDW CV 17.2(H) 11.1 - 14.9 % [facility] RDW SD 67.0(H) 35.7 - 48.1 fL [facility] NRBC abs 0.27(H) 0.00 - 0.01 K/cumm [facility] Blood 02/29/2024 7:34 AM CDT 02/29/2024 8:13 AM CDT Josefa Taylor COMMERCIAL ESTIMATOR LAB BLOOD ORDERABLES Pilar l Result Performing Organization Address [facility] Co de Phone Number ZULEMA [address] [place] [address] * POCT glucose (02/29/2024 7:18 AM CDT) Glucose, POC 123 70 - 199 mg/dL Blood 02/29/2024 7:18 AM CDT 02/29/2024 7:18 AM CDT Saim Rivera DO LAB POCT ORDERABLES - DEVICE Fin al Result Performing Organization Address [facility] Co de Phone Number [address] [place] [address] * POCT glucose (02/29/2024 2:06 AM CDT) Glucose, POC 150 70 - 199 mg/dL Glucose comment 1 Use This Result [facility] Glucose comment 2 RN/MD Notified [facility] Blood 02/29/2024 2:06 AM CDT 02/29/2024 2:06 AM CDT Saim Rivera DO LAB POCT ORDERABLES - DEVICE Fin al Result Performing Organization Address [facility] Co de Phone Number [address] [place] [address] * POCT glucose (02/29/2024 1:00 AM CDT) Glucose, POC 100 70 - 199 mg/dL Blood 02/29/2024 1:00 AM CDT 02/29/2024 1:00 AM CDT Saim Rivera DO LAB POCT ORDERABLES - DEVICE Fin al Result Performing Organization Address [facility] Co de Phone Number ZULEMA [address] [address] * (ABNORMAL) POCT glucose (02/29/2024 12:43 AM CDT) Glucose, POC 59(L) 70 - 199 mg/dL Blood 02/29/2024 12:4 3 AM CDT 02/29/2024 12:43 AM CDT Saim Rivera DO LAB POCT ORDERABLES - DEVICE Fin al Result Performing Organization Address [facility] Co de Phone Number ZULEMA [address] [address] * (ABNORMAL) POCT glucose (02/29/2024 12:08 AM CDT) Glucose, POC 56(L) 70 - 199 mg/dL Glucose comment 1 Use This Result [facility] Glucose comment 2 RN/MD Notified [facility] Blood 02/29/2024 12:0 8 AM CDT 02/29/2024 12:08 AM CDT [employer] Rivera DO LAB POCT ORDERABLES - DEVICE Fin al Result Performing Organization Address [facility] Co de Phone Number ZULEMA [address] [address] * (ABNORMAL) POCT glucose (02/28/2024 8:40 PM CDT) Glucose, POC 296(H) 70 - 199 mg/dL Glucose comment 1 Use This Result [facility] Glucose comment 2 RN/MD Notified [facility] Blood 02/28/2024 8:40 PM CDT 02/28/2024 8:40 PM CDT Saim Rivera DO LAB POCT ORDERABLES - DEVICE Fin al Result Performing Organization Address [facility] Co de Phone Number LESLIE[address] [address] * (ABNORMAL) POCT glucose (02/28/2024 4:55 PM CDT) Glucose, POC 248(H) 70 - 199 mg/dL Glucose comment 1 Use This Result ZULEMA Blood 02/28/2024 4:55 PM CDT 02/28/2024 4:55 PM CDT us Saim Rivera DO LAB POCT ORDERABLES - DEVICE Fin al Result Performing Organization Address [facility] de Phone Number LESLIE[address] [address] * POCT glucose (02/28/2024 12:39 PM CDT) Glucose, POC 163 70 - 199 mg/dL Glucose comment 1 Use This Result ZULEMA Blood 02/28/2024 12:3 9 PM CDT 02/28/2024 12:39 PM CDT us Saim Rivera DO LAB POCT ORDERABLES - DEVICE Fin al Result Performing Organization Address [facility] Co de Phone Number [address] [place] [address] * POCT glucose (02/28/2024 12:02 PM CDT) Glucose, POC 173 70 - 199 mg/dL Blood 02/28/2024 12:0 2 PM CDT 02/28/2024 12:02 PM CDT us Saim Rivera DO LAB POCT ORDERABLES - DEVICE Fin al Result Performing Organization Address [facility] Co de Phone Number [address] [place] [address] * EGD (02/28/2024 11:38 AM CDT) Anatomical Region Laterality Modality Other Narrative Procedure Note Gee Mcdaniel MD - 02/28/2024 11:38 AM CDT [facility] GI ENDOSCOPY Patient Name: Bri Jones Procedure Date: 02/28/2024 11:38 AM Date of : 1965 Admit Type: Inpatient Age: 58 Gender: Male Attending MD: Gee Ravi M.D. Room: [facility] ENDOSCOPY ROOM [facility] Note Status: Finalized Procedure: Upper GI endoscopy [...] On: 02/28/2024 11:38 AM Recognized by the [employer] for promoting quality in endoscopy Gee Mcdaniel MD ENDOSCOPY P ROCEDURES Final Result * POCT glucose (02/28/2024 8:02 AM CDT) Glucose, POC 118 70 - 199 mg/dL Glucose comment 1 Use This Result ZULEMA CHAVEZ Blood 02/28/2024 8:02 AM CDT 02/28/2024 8:02 AM CDT Diana Rivera DO LAB POCT ORDERABLES - DEVICE Fin al Result Performing Organization Address City/State/[facility] Co de Phone Number ZULEMA [address] [facility] [place] [address] * (ABNORMAL) Lipid panel (02/28/2024 [...] LAB BLOOD ORDERABLES Final Resul t ZULEMA [address] [facility] [place] [address] * eGFR (02/28/2024 5:26 AM [...] LAB BLOOD ORDERABLES Final Resul t ZULEMA [address] [facility] [place] [address] * (ABNORMAL) Basic metabolic panel (02/28/2024 5:26 AM CDT) Sodium 136 135 - 145 mmol/L Potassium, pl 4.3 3.3 - 4.9 mmol/L [facility] Comment:Hemolyzed; Potassium value may be falsely elevated by as much as 1.0 mmol/L. Suggest redraw and reanalysis. Chloride 98 97 - 110 mmol/L [facility] CO2 28 22 - 32 mmol/L [facility] Anion gap 10 2 - 15 mmol/L [facility] BUN 28(H) 6 - 25 mg/dL [facility] Creatinine 0.78(L) 0.80 - 1.30 mg/dL [facility] Glucose 164 70 - 199 mg/dL [facility] [...] 2022. Calcium 8.7 8.5 - 10.3 mg/dL [facility] Blood 02/28/2024 5:26 AM CDT 02/28/2024 6:30 AM CDT us Diana Christensena DO LAB BLOOD ORDERABLES Final Resul t [facility] [address] [facility] [place] [address] * (ABNORMAL) CBC without differential (02/28/2024 5:26 AM CDT) WBC 13.6(H) 3.8 - 9.9 K/cumm Hgb 11.4(L) 13.0 - 17.5 g/dL [facility] Hct 33.9(L) 38.9 - 50.3 % [facility] Plt 378 150 - 400 K/cumm [facility] MPV 9.8 9.1 - 12.3 fL [facility] RBC 3.26(L) 4.30 - 5.80 M/cumm [facility] MCV 104.0(H) 81.3 - 96.4 fL [facility] MCH 35.0(H) 27.1 - 33.3 pg [facility] MCHC 33.6 32.3 - 35.7 g/dL [facility] RDW CV 16.5(H) 11.1 - 14.9 % [facility] RDW SD 62.6(H) 35.7 - 48.1 fL [facility] NRBC abs 0.42(H) 0.00 - 0.01 K/cumm [facility] Blood 02/28/2024 5:26 AM CDT 02/28/2024 6:30 AM CDT Josefa Taylor LAB BLOOD ORDERABLES Pilar l Result Performing Organization Address [facility] Co de Phone Number LESLIE[address] [address] * POCT glucose (02/28/2024 4:09 AM CDT) Glucose, POC 184 70 - 199 mg/dL Glucose comment 1 Use This Result [facility] Glucose comment 2 RN/MD Notified [facility] Blood 02/28/2024 4:09 AM CDT 02/28/2024 4:09 AM CDT Saim Rivera DO LAB POCT ORDERABLES - DEVICE Fin al Result Performing Organization Address [facility] Co de Phone Number [address] [place] [address] * (ABNORMAL) POCT glucose (02/28/2024 4:08 AM CDT) Glucose, POC 202(H) 70 - 199 mg/dL Blood 02/28/2024 4:08 AM CDT 02/28/2024 4:08 AM CDT Saim Rivera DO LAB POCT ORDERABLES - DEVICE Fin al Result Performing Organization Address [facility] Co de Phone Number [address] [place] [address] * POCT glucose (02/28/2024 12:34 AM CDT) Glucose, POC 132 70 - 199 mg/dL Glucose comment 1 Use This Result [facility] Glucose comment 2 RN/MD Notified ZULEMA Blood 02/28/2024 12:3 4 AM CDT 02/28/2024 12:34 AM CDT us Saim Rivera DO LAB POCT ORDERABLES - DEVICE Fin al Result Performing Organization Address [facility] Co de Phone Number ZULEMA [address] [place] [address] * POCT glucose (02/27/2024 11:46 PM CDT) Glucose, POC 97 70 - 199 mg/dL Glucose comment 1 Use This Result [facility] Glucose comment 2 RN/MD Notified ZULEMA Blood 02/27/2024 11:4 6 PM CDT 02/27/2024 11:46 PM CDT Saim Rivera DO LAB POCT ORDERABLES - DEVICE Fin al Result Performing Organization Address [facility] Co de Phone Number ZULEMA [address] [place] [address] * POCT glucose (02/27/2024 11:17 PM CDT) Glucose, POC 128 70 - 199 mg/dL Glucose comment 1 Use This Result [facility] Glucose comment 2 RN/ Notified ZULEMA Blood 02/27/2024 11:1 7 PM CDT 02/27/2024 11:17 PM CDT us Saim Rivera DO LAB POCT ORDERABLES - DEVICE Fin al Result Performing Organization Address City/[facility] Co de Phone Number LESLIE[address] [place] [address] * (ABNORMAL) POCT glucose (02/27/2024 8:56 PM CDT) Glucose, POC 340(H) 70 - 199 mg/dL Glucose comment 1 Use This Result [facility] Glucose comment 2 RN/ Notified ZULEMA Blood 02/27/2024 8:56 PM CDT 02/27/2024 8:56 PM CDT us Saim Rivera DO LAB POCT ORDERABLES - DEVICE Fin al Result ZULEMA [address] [facility] [place] [address] * XR Chest PA Lateral 2 Views (02/27/2024 6:05 PM CDT) Anatomical Region Laterality Modality Body, Chest N/A Computed Radiogr aphy 02/28/2024 5:50 AM CDT Narrative 02/28/2024 5:53 AM CDT EXAM DESCRIPTION: XR CHEST PA LATERAL 2 VIEWS REASON FOR STUDY: Immunosuppressed state pneumoniae ?? Evaluate immunosupressed pneumoniae. ?? TECHNIQUE: PA and lateral ??radiographic view(s) of the chest. COMPARISON: [id number]. FINDINGS: LUNGS: ??There is apical opacity on [...] D: ??02/28/2024 5:53 AM T: Report ID: [id number] Reading Location: ??[id number] Procedure Note Vianey Mares MD - 02/28/2024 EXAM DESCRIPTION: XR CHEST PA LATERAL 2 VIEWS REASON FOR STUDY: Immunosuppressed state pneumoniae Evaluate immunosupressed pneumoniae. TECHNIQUE: PA and lateral radiographic view(s) of the chest. COMPARISON: [id number]. FINDINGS: LUNGS: There is apical opacity on [...] Vianey Mares M.D. TW T: Report ID: [id number] Reading Location: [place] [address] Osmar Orta MD IMG XR PROCEDURES Final Resu lt * POCT glucose (02/27/2024 5:04 PM CDT) Glucose, POC 123 70 - 199 mg/dL Blood 02/27/2024 5:04 PM CDT 02/27/2024 5:04 PM CDT Saim Rivera DO LAB POCT ORDERABLES - DEVICE Fin al Result Performing Organization Address [facility] de Phone Number [address] [place] [place] [address] * POCT glucose (02/27/2024 12:01 PM CDT) Glucose, POC 151 70 - 199 mg/dL Blood 02/27/2024 12:0 1 PM CDT 02/27/2024 12:01 PM CDT Saim Rivera DO LAB POCT ORDERABLES - DEVICE Fin al Result Performing Organization Address [facility] Co de Phone Number [address] [place] [address] * (ABNORMAL) POCT glucose (02/27/2024 8:00 AM CDT) Glucose, POC 59(L) 70 - 199 mg/dL Blood 02/27/2024 8:00 AM CDT 02/27/2024 8:00 AM CDT Diana Rowellafa DO LAB POCT ORDERABLES - DEVICE Fin al Result Performing Organization Address [facility] Co de Phone Number ZULEMA [address] [place] [address] * (ABNORMAL) CBC without differential (02/27/2024 6:10 AM CDT) [facility] WBC 14.4(H) 3.8 - 9.9 K/cumm Hgb 10.4(L) 13.0 - 17.5 g/dL [facility] Hct 31.7(L) 38.9 - 50.3 % [facility] Plt 358 150 - 400 K/cumm [facility] MPV 9.9 9.1 - 12.3 fL [facility] RBC 3.05(L) 4.30 - 5.80 M/cumm [facility] MCV 103.9(H) 81.3 - 96.4 fL [facility] MCH 34.1(H) 27.1 - 33.3 pg [facility] MCHC 32.8 32.3 - 35.7 g/dL [facility] RDW CV 16.3(H) 11.1 - 14.9 % [facility] RDW SD 62.5(H) 35.7 - 48.1 fL [facility] NRBC abs 0.44(H) 0.00 - 0.01 K/cumm [facility] Blood 02/27/2024 6:10 AM CDT 02/27/2024 6:20 AM CDT Josefa Taylor NP LAB BLOOD ORDERABLES Pilar l Result Performing Organization Address City/[facility]/ZIP Co de Phone Number LESLIE[address] [place] [address] * POCT glucose (02/27/2024 3:51 AM CDT) Glucose, POC 148 70 - 199 mg/dL Glucose comment 1 Use This Result [facility] Glucose comment 2 RN/MD Notified ZULEMA Blood 02/27/2024 3:51 AM CDT 02/27/2024 3:51 AM CDT us Saim Rivera DO LAB POCT ORDERABLES - DEVICE Fin al Result Performing Organization Address City/[facility] Co de Phone Number LESLIE[address] [place] [address] * POCT glucose (02/27/2024 2:15 AM CDT) Glucose, POC 87 70 - 199 mg/dL Glucose comment 1 Use This Result [facility] Glucose comment 2 RN/MD Not[facility] Blood 02/27/2024 2:15 AM CDT 02/27/2024 2:15 AM CDT Saim Rivera DO LAB POCT ORDERABLES - DEVICE Fin al Result Performing Organization Address [facility] Co de Phone Number [address] [place] [address] * POCT glucose (02/26/2024 11:49 PM CDT) Glucose, POC 178 70 - 199 mg/dL Glucose comment 1 Use This Result [facility] Glucose comment 2 RN/MD Notified ZULEMA Blood 02/26/2024 11:4 9 PM CDT 02/26/2024 11:49 PM CDT Saim Rivera DO LAB POCT ORDERABLES - DEVICE Fin al Result Performing Organization Address City/[facility] Co de Phone Number [address] [place] [address] * POCT glucose (02/26/2024 8:36 PM CDT) Glucose, POC 190 70 - 199 mg/dL Glucose comment 1 Use This Result ZULEMA Glucose comment 2 RN/MD Notified ZULEMA Blood 02/26/2024 8:36 PM CDT 02/26/2024 8:36 PM CDT us Saim Rivera DO LAB POCT ORDERABLES - DEVICE Fin al Result Performing Organization Address City/[facility] Co de Phone Number ZULEMA [address] [place] [address] * (ABNORMAL) POCT glucose (02/26/2024 4:39 PM CDT) Glucose, POC 384(H) 70 - 199 mg/dL Glucose comment 1 Use This Result ZULEMA Blood 02/26/2024 4:39 PM CDT 02/26/2024 4:39 PM CDT Saim Rivera DO LAB POCT ORDERABLES - DEVICE Fin al Result Performing Organization Address [facility] de Phone Number ZULEMA [address] [place] [address] * POCT glucose (02/26/2024 11:39 AM CDT) Glucose, POC 97 70 - 199 mg/dL Glucose comment 1 Use This Result ZULEMA Blood 02/26/2024 11:3 9 AM CDT 02/26/2024 11:39 AM CDT Saim Rivera DO LAB POCT ORDERABLES - DEVICE Fin al Result Performing Organization Address [facility] Co de Phone Number LESLIE[address] [place] [address] * POCT glucose (02/26/2024 10:53 AM CDT) Glucose, POC 111 70 - 199 mg/dL Glucose comment 1 Use This Result ZULEMA Blood 02/26/2024 10:5 3 AM CDT 02/26/2024 10:53 AM CDT Saim Rivera DO LAB POCT ORDERABLES - DEVICE Fin al Result Performing Organization Address [facility] Co de Phone Number ZULEMA [address] [place] [address] * (ABNORMAL) POCT glucose (02/26/2024 10:30 AM CDT) Glucose, POC 61(L) 70 - 199 mg/dL Glucose comment 1 Use This Result ZULEMA Glucose comment 2 RN/MD Notified ZULEMA Blood 02/26/2024 10:3 0 AM CDT 02/26/2024 10:30 AM CDT Saim Rivera DO LAB POCT ORDERABLES - DEVICE Fin al Result Performing Organization Address [facility] de Phone Number ZULEMA [address] [address] * POCT glucose (02/26/2024 7:34 AM CDT) Glucose, POC 163 70 - 199 mg/dL Glucose comment 1 Use This Result ZULEMA Blood 02/26/2024 7:34 AM CDT 02/26/2024 7:34 AM CDT Saim Rivera DO LAB POCT ORDERABLES - DEVICE Fin al Result Performing Organization Address [facility] de Phone Number ZULEMA [address] [address] * eGFR (02/26/2024 5:42 AM CDT) eGFR [...] NP LAB BLOOD ORDERABLES Pilar armas Result [facility] [address] [facility] [employer] [place], [place] [id number] * (ABNORMAL) CBC without differential (02/26/2024 5:42 AM CDT) Pathologist [facility] WBC 13.4(H) 3.8 - 9.9 K/cumm Hgb 11.6(L) 13.0 - 17.5 g/dL [facility] Hct 34.7(L) 38.9 - 50.3 % [facility] Plt 418(H) 150 - 400 K/cumm [facility] MPV 10.1 9.1 - 12.3 fL [facility] RBC 3.31(L) 4.30 - 5.80 M/cumm [facility] MCV 104.8(H) 81.3 - 96.4 fL [facility] MCH 35.0(H) 27.1 - 33.3 pg [facility] MCHC 33.4 32.3 - 35.7 g/dL [facility] RDW CV 16.2(H) 11.1 - 14.9 % [facility] RDW SD 62.5(H) 35.7 - 48.1 fL [facility] NRBC abs 0.25(H) 0.00 - 0.01 K/cumm [facility] Blood 02/26/2024 5:42 AM CDT 02/26/2024 6:49 AM CDT Josefa Taylor NP LAB BLOOD ORDERABLES Pilar armas Result [facility] [address] [facility] [place] [address] * Basic metabolic panel (02/26/2024 5:42 AM CDT) Pathologist [facility] Sodium 139 135 - 145 mmol/L Potassium, pl 3.6 3.3 - 4.9 mmol/L [facility] Chloride 99 97 - 110 mmol/L [facility] CO2 31 22 - 32 mmol/L [facility] Anion gap 9 2 - 15 mmol/L [facility] BUN 24 6 - 25 mg/dL [facility] Creatinine 0.81 0.80 - 1.30 mg/dL [facility] Glucose 140 70 - 199 mg/dL [facility] [...] 2022. Calcium 9.1 8.5 - 10.3 mg/dL [facility] Blood 02/26/2024 5:42 AM CDT 02/26/2024 6:50 AM CDT Josefa Escaleragardner LAB BLOOD ORDERABLES Pilar l Result Performing Organization Address [facility] de Phone Number LESLIE[address] [place] [address] * POCT glucose (02/26/2024 4:22 AM CDT) Glucose, POC 125 70 - 199 mg/dL Glucose comment 1 Use This Result [facility] Blood 02/26/2024 4:22 AM CDT 02/26/2024 4:22 AM CDT [facility] POCT ORDERABLES - DEVICE Fin al Result Performing Organization Address [facility] de Phone Number [address] [place] [address] * POCT glucose (02/26/2024 12:14 AM CDT) Glucose, POC 121 70 - 199 mg/dL Blood 02/26/2024 12:1 4 AM CDT 02/26/2024 12:14 AM CDT Sa Rivera DO LAB POCT ORDERABLES - DEVICE Fin al Result Performing Organization Address [facility] de Phone Number [address] [place] [address] * (ABNORMAL) POCT glucose (02/25/2024 7:22 PM CDT) Glucose, POC 362(H) 70 - 199 mg/dL Glucose comment 1 Use This Result [facility] Glucose comment 2 RN/MD Notified [facility] Blood 02/25/2024 7:22 PM CDT 02/25/2024 7:22 PM CDT Diana Rivera DO LAB POCT ORDERABLES - DEVICE Fin al Result Performing Organization Address [facility] de Phone Number ZULEMA [address] [address] * POCT glucose (02/25/2024 4:26 PM CDT) [facility] Glucose, POC 152 70 - 199 mg/dL Glucose comment 1 Use This Result ZULEMA Blood 02/25/2024 4:26 PM CDT 02/25/2024 4:26 PM CDT Diana Rivera DO LAB POCT ORDERABLES - DEVICE Fin al Result Performing Organization Address [facility] de Phone Number ZULEMA [address] [address] * TRANSTHORACIC ECHO (TTE) COMPLETE W DOPPLER/CF W CONTRAST (02/25/2024 2:03 PM CDT) Anatomical Region Laterality Modality Ultrasound 02/25/2024 2:03 PM CDT Narrative 02/26/2024 4:01 PM CDT ? Adult Echocardiogram + ----- + :Name: BRI JONES ??Study Date: 02/25/2024 ?Status: MHB ?: : ?Patient Location: [facility]^[id number]^Height: 71 in ?: : ?Weight: 142 lbBP: [...] LV function. Definity lot # is ' [id number] '. Left Ventricle The left ventricle is [...] Date: 02/25/2024Status: MHB : : Patient Location: [address]^[id number]^Height: 71 in : : : 142 lbBP: [...] mg/dL Glucose comment 1 Use This Result [facility] Glucose comment 2 RN/MD Notified [facility] Blood 02/25/2024 11:4 7 AM CDT 02/25/2024 11:47 AM CDT us Diana Rivera DO LAB POCT ORDERABLES - DEVICE Fin al Result [facility] [address] [place] [address] * POCT glucose (02/25/2024 7:57 AM CDT) Glucose, POC 99 70 - 199 mg/dL Glucose comment 1 Use This Result [facility] Glucose comment 2 RN/MD Notified [facility] Blood 02/25/2024 7:57 AM CDT 02/25/2024 7:57 AM CDT Diana Rivera DO LAB POCT ORDERABLES - DEVICE Fin al Result Performing Organization Address [facility] de Phone Number [address] [address] * (ABNORMAL) POCT glucose (02/25/2024 4:21 AM CDT) Glucose, POC 218(H) 70 - 199 mg/dL Glucose comment 1 Use This Result [facility] Blood 02/25/2024 4:21 AM CDT 02/25/2024 4:21 AM CDT Corbin Cole MD LAB POCT ORDERABLES - DEVICE Final Result Performing Organization Address [facility] de Phone Number [address] [address] * eGFR (02/25/2024 2:22 AM CDT) Pathologist [facility] eGFR >90 >=60 mL/min/1. 73 m2 Comment: [...] MD LAB BLOOD ORDERABLES Final R esult [facility] [address] [place] [address] * (ABNORMAL) Differential, auto (02/25/2024 2:22 AM CDT) Pathologist [facility] Neutrophil abs 10.0(H) 1.5 - 6.5 K/cumm Imm gran abs 0.1 0.0 - 0.1 K/cumm [facility] Lymphocyte abs 4.0(H) 0.8 - 3.3 K/cumm [facility] Monocyte abs 1.2(H) 0.2 - 0.8 K/cumm [facility] Eosinophil abs 0.0 0.0 - 0.5 K/cumm [facility] Basophil abs 0.0 0.0 - 0.1 K/cumm [facility] Neutrophil pct 65.4 % [facility] Comment: Interpretive Data Percent cell count reference ranges are not reported, since discordance with absolute values may lead to misinterpretation of CBC data. Current Interpretive Data was last revised on 2018. Imm gran pct 0.7 % [facility] Comment: Interpretive Data Percent cell count reference ranges are not reported, since discordance with absolute values may lead to misinterpretation of CBC data. Current Interpretive Data was last revised on 2018. Lymphocyte pct 26.0 % [facility] Comment: Interpretive Data Percent cell count reference ranges are not reported, since discordance with absolute values may lead to misinterpretation of CBC data. Current Interpretive Data was last revised on 2018. Monocyte pct 7.8 % [facility] Comment: Interpretive Data Percent cell count reference ranges are not reported, since discordance with absolute values may lead to misinterpretation of CBC data. Current Interpretive Data was last revised on 2018. Eosinophil pct 0.0 % [facility] Comment: Interpretive Data Percent cell count reference ranges are not reported, since discordance with absolute values may lead to misinterpretation of CBC data. Current Interpretive Data was last revised on 2018. Basophil pct 0.1 % [facility] Comment: Interpretive Data Percent cell count reference ranges are not reported, since discordance with absolute values may lead to misinterpretation of CBC data. Current Interpretive Data was last revised on 2018. Blood 02/25/2024 2:22 AM CDT 02/25/2024 3:28 AM CDT us Osmar Orta MD LAB BLOOD ORDERABLES Final R esult [place] [id number] [place] [address] * Comprehensive metabolic panel (02/25/2024 2:22 AM CDT) Sodium 140 135 - 145 mmol/L Potassium, pl 3.9 3.3 - 4.9 mmol/L [facility] Chloride 102 97 - 110 mmol/L [facility] CO2 28 22 - 32 mmol/L [facility] Anion gap 10 2 - 15 mmol/L [facility] BUN 22 6 - 25 mg/dL [facility] Creatinine 0.90 0.80 - 1.30 mg/dL [facility] Glucose 71 70 - 199 mg/dL [facility] Comment: Delta - Results Reviewed Interpretive [...] 2022. Calcium 8.9 8.5 - 10.3 mg/dL [facility] Bilirubin, total 0.2 0.1 - 1.2 mg/dL [facility] Protein, pl 7.4 6.5 - 8.5 g/dL [facility] Albumin 3.5 3.5 - 5.0 g/dL [facility] Alk phos 113 40 - 130 Units/L [facility] ALT 27 7 - 55 Units/L [facility] AST 22 10 - 50 Units/L [facility] Blood 02/25/2024 2:22 AM CDT 02/25/2024 3:28 AM CDT us Osmar Orta MD LAB BLOOD ORDERABLES Final R esult [facility] [address] Department of [facility] [place], [place] [id number] * (ABNORMAL) CBC with auto differential (02/25/2024 2:22 AM CDT) WBC 15.2(H) 3.8 - 9.9 K/cumm Hgb 11.1(L) 13.0 - 17.5 g/dL [facility] Hct 33.6(L) 38.9 - 50.3 % [facility] Plt 405(H) 150 - 400 K/cumm [facility] MPV 10.2 9.1 - 12.3 fL [facility] RBC 3.17(L) 4.30 - 5.80 M/cumm [facility] MCV 106.0(H) 81.3 - 96.4 fL [facility] MCH 35.0(H) 27.1 - 33.3 pg [facility] MCHC 33.0 32.3 - 35.7 g/dL [facility] RDW CV 15.9(H) 11.1 - 14.9 % [facility] RDW SD 62.0(H) 35.7 - 48.1 fL [facility] NRBC abs 0.09(H) 0.00 - 0.01 K/cumm [facility] Blood 02/25/2024 2:22 AM CDT 02/25/2024 3:28 AM CDT us Osmar Orta MD LAB BLOOD ORDERABLES Final R esult Performing Organization Address [facility] Co de Phone Number ZULEMA [address] [place] [address] * POCT glucose (02/25/2024 2:15 AM CDT) Glucose, POC 78 70 - 199 mg/dL Blood 02/25/2024 2:15 AM CDT 02/25/2024 2:15 AM CDT us Corbin Cole MD LAB POCT ORDERABLES - DEVICE Final Result Performing Organization Address [facility] de Phone Number LES[address] [place] [address] * POCT glucose (02/24/2024 11:22 PM CDT) Glucose, POC 152 70 - 199 mg/dL Glucose comment 1 Use This Result [facility] Blood 02/24/2024 11:2 2 PM CDT 02/24/2024 11:22 PM CDT Corbin Cole MD LAB POCT ORDERABLES - DEVICE Final Result Performing Organization Address [facility] Co de Phone Number ZULEMA [address] [place] [address] * (ABNORMAL) POCT glucose (02/24/2024 7:32 PM CDT) Glucose, POC 229(H) 70 - 199 mg/dL Glucose comment 1 Use This Result [facility] Blood 02/24/2024 7:32 PM CDT 02/24/2024 7:32 PM CDT us Corbin Cole MD LAB POCT ORDERABLES - DEVICE Final Result [facility] [address] [facility] [place] [address] * POCT glucose (02/24/2024 4:57 PM CDT) Glucose, POC 131 70 - 199 mg/dL Glucose comment 1 Use This Result [facility] Blood 02/24/2024 4:57 PM CDT 02/24/2024 4:57 PM CDT Corbin Cole MD LAB POCT ORDERABLES - DEVICE Final Result Performing Organization Address [facility] Co de Phone Number ZULEMA [address] [place] [address] * Blood culture Blood Arm, right (02/24/2024 1:18 PM CDT) Report Final Report: No growth Comment:Testing performed by : [facility], [address] [facility], [place]., [address] Blood (Arm, right) 02/24/2024 1:18 PM CDT [...] performance characteristics have been verified by the [facility]. 5. ?For questions about this culture, contact the Microbiology Laboratory at [phone]. Interpretive data was last revised on 2020. Corbin Cole MD LAB MICROBIOLOGY - [facility] ORDERABLES Final Result [facility] [address] Department [place] [address] * Blood culture Blood Arm, right (02/24/2024 12:56 PM CDT) Report Final Report: No growth Comment:Testing performed by : [facility], [address] [facility], [place]., [address] Blood (Arm, right) 02/24/2024 12:56 PM CDT [...] performance characteristics have been verified by the [facility]. 5. ?For questions about this culture, contact the Microbiology Laboratory at [phone]. Interpretive data was last revised on 2020. Corbin Cole MD LAB MICROBIOLOGY - G ENERAL ORDERABLES Final Result Performing Organization Address City/[facility] Co de Phone Number ZULEMA [address] [place] [address] * POCT glucose (02/24/2024 11:51 AM CDT) Glucose, POC 105 70 - 199 mg/dL Glucose comment 1 Use This Result [facility] Blood 02/24/2024 11:5 1 AM CDT 02/24/2024 11:51 AM CDT Result [facility] Corbin Cole MD LAB POCT ORDERABLES - DEVICE Final Result Performing Organization Address [facility] de Phone Number ZULEMA [address] [place] [address] * POCT glucose (02/24/2024 8:22 AM CDT) Glucose, POC 112 70 - 199 mg/dL Glucose comment 1 Use This Result [facility] Blood 02/24/2024 8:22 AM CDT 02/24/2024 8:22 AM CDT Result [facility] Corbin Cole MD LAB POCT ORDERABLES - DEVICE Final Result Performing Organization Address [facility] de Phone Number LES[address] [place] [address] * eGFR (02/24/2024 4:56 AM CDT) Pathologist [facility] eGFR >90 >=60 mL/min/1. 73 m2 Comment: [...] LAB BLOOD ORDERABLES Pilar pawel Result [facility] [address] [facility] [place] [address] * (ABNORMAL) CBC without differential (02/24/2024 4:56 AM CDT) [facility] WBC 11.7(H) 3.8 - 9.9 K/cumm Hgb 11.3(L) 13.0 - 17.5 g/dL [facility] Hct 34.2(L) 38.9 - 50.3 % [facility] Plt 382 150 - 400 K/cumm [facility] MPV 10.3 9.1 - 12.3 fL [facility] RBC 3.23(L) 4.30 - 5.80 M/cumm [facility] MCV 105.9(H) 81.3 - 96.4 fL [facility] MCH 35.0(H) 27.1 - 33.3 pg [facility] MCHC 33.0 32.3 - 35.7 g/dL [facility] RDW CV 15.9(H) 11.1 - 14.9 % [facility] RDW SD 61.6(H) 35.7 - 48.1 fL [facility] NRBC abs 0.03(H) 0.00 - 0.01 K/cumm [facility] Blood 02/24/2024 4:56 AM CDT 02/24/2024 6:09 AM CDT Josefa Taylor NP LAB BLOOD ORDERABLES Pilar l Result [facility] [address] [place] [address] * (ABNORMAL) Basic metabolic panel (02/24/2024 4:56 AM CDT) Sodium 137 135 - 145 mmol/L Potassium, pl 4.0 3.3 - 4.9 mmol/L [facility] Chloride 98 97 - 110 mmol/L [facility] CO2 30 22 - 32 mmol/L [facility] Anion gap 9 2 - 15 mmol/L [facility] BUN 19 6 - 25 mg/dL [facility] Creatinine 0.67(L) 0.80 - 1.30 mg/dL [facility] Glucose 288(H) 70 - 199 mg/dL [facility] [...] 2022. Calcium 9.0 8.5 - 10.3 mg/dL [facility] Blood 02/24/2024 4:56 AM CDT 02/24/2024 6:09 AM CDT Josefa Taylor NP LAB BLOOD ORDERABLES Pilar l Result Performing Organization Address [facility] Co de Phone Number [address] [place] [address] * (ABNORMAL) POCT glucose (02/24/2024 4:14 AM CDT) Glucose, POC 345(H) 70 - 199 mg/dL Glucose comment 1 Use This Result [facility] Glucose comment 2 RN/MD Notified [facility] Blood 02/24/2024 4:14 AM CDT 02/24/2024 4:14 AM CDT Corbin Cole MD LAB POCT ORDERABLES - DEVICE Final Result Performing Organization Address [facility] Co de Phone Number [address] [place] [address] * POCT glucose (02/24/2024 12:00 AM CDT) Glucose, POC 115 70 - 199 mg/dL Blood 02/24/2024 02/24/2024 12: 00 AM CDT Corbin Cole MD LAB POCT ORDERABLES - DEVICE Final Result Performing Organization Address City/[facility] Co de Phone Number [address] [place] [address] * (ABNORMAL) POCT glucose (02/23/2024 8:19 PM CDT) Glucose, POC 336(H) 70 - 199 mg/dL Glucose comment 1 Use This Result [facility] Glucose comment 2 RN/MD Notified [facility] Blood 02/23/2024 8:19 PM CDT 02/23/2024 8:19 PM CDT Corbin Cole MD LAB POCT ORDERABLES - DEVICE Final Result Performing Organization Address [facility] Co de Phone Number [address] [place] [address] * (ABNORMAL) POCT glucose (02/23/2024 4:48 PM CDT) Glucose, POC 245(H) 70 - 199 mg/dL Glucose comment 1 Use This Result [facility] Glucose comment 2 RN[facility] Blood 02/23/2024 4:48 PM CDT 02/23/2024 4:48 PM CDT Corbin Cole MD LAB POCT ORDERABLES - DEVICE Final Result Performing Organization Address [facility] Co de Phone Number [address] [place] [address] * POCT glucose (02/23/2024 11:30 AM CDT) Glucose, POC 118 70 - 199 mg/dL Glucose comment 1 Use This Result [facility] Blood 02/23/2024 11:3 0 AM CDT 02/23/2024 11:30 AM CDT Corbin Cole MD LAB POCT ORDERABLES - DEVICE Final Result Performing Organization Address [facility] Co de Phone Number [address] [place] [address] * Mycoplasma pneumoniae PCR Sputum (02/23/2024 8:53 AM CDT) Pathologist [facility] M. pneumoniae DNA Not Detected Not Detected [facility] Comment: Interpretive Data: This assay tests for the presence of Mycoplasma pneumoniae. ?? This test is laboratory developed and its performance characteristics were determined by the performing laboratory in a manner consistent with CLIA requirements. This test has not been cleared or approved by the U.S. Food and Drug Administration. Current Interpretive Data was last revised on 2020. Testing performed by: [facility], [address] [facility] [place] [address] Sputum 02/23/2024 8:53 AM CDT 02/23/2024 7:05 PM CDT Corbin Cole MD LAB MICROBIOLOGY - G ENERAL ORDERABLES Final Result Performing Organization Address [facility] Co de Phone Number [place] [address] [facility] [place] [address] [facility] * POCT glucose (02/23/2024 7:36 AM CDT) [facility] Glucose, POC 159 70 - 199 mg/dL Glucose comment 1 Use This Result [facility] Blood 02/23/2024 7:36 AM CDT 02/23/2024 7:36 AM CDT Corbin Cole MD LAB POCT ORDERABLES - DEVICE Final Result Performing Organization Address [facility] de Phone Number [place] [address] [facility] [place] [address] * eGFR (02/23/2024 6:31 AM CDT) Pathologist [facility] eGFR >90 >=60 mL/min/1. 73 m2 Comment: [...] NP LAB BLOOD ORDERABLES Pilar armas Result [facility] [address] [place] [address] * (ABNORMAL) CBC without differential (02/23/2024 6:31 AM CDT) WBC 7.7 3.8 - 9.9 K/cumm Hgb 10.5(L) 13.0 - 17.5 g/dL [facility] Hct 31.5(L) 38.9 - 50.3 % [facility] Plt 339 150 - 400 K/cumm [facility] MPV 9.9 9.1 - 12.3 fL [facility] RBC 3.01(L) 4.30 - 5.80 M/cumm [facility] MCV 104.7(H) 81.3 - 96.4 fL [facility] MCH 34.9(H) 27.1 - 33.3 pg [facility] MCHC 33.3 32.3 - 35.7 g/dL [facility] RDW CV 15.5(H) 11.1 - 14.9 % [facility] RDW SD 59.8(H) 35.7 - 48.1 fL [facility] NRBC abs 0.00 0.00 - 0.01 K/cumm [facility] Blood 02/23/2024 6:31 AM CDT 02/23/2024 7:19 AM CDT Josefa Taylor NP LAB BLOOD ORDERABLES Pilar armas Result [facility] [address] [place] [address] * (ABNORMAL) Basic metabolic panel (02/23/2024 6:31 AM CDT) Sodium 135 135 - 145 mmol/L Potassium, pl 4.2 3.3 - 4.9 mmol/L [facility] Chloride 98 97 - 110 mmol/L [facility] CO2 28 22 - 32 mmol/L [facility] Anion gap 9 2 - 15 mmol/L [facility] BUN 15 6 - 25 mg/dL [facility] Creatinine 0.62(L) 0.80 - 1.30 mg/dL [facility] Glucose 239(H) 70 - 199 mg/dL [facility] [...] 2022. Calcium 8.3(L) 8.5 - 10.3 mg/dL [facility] Blood 02/23/2024 6:31 AM CDT 02/23/2024 7:19 AM CDT Josefa Taylor NP LAB BLOOD ORDERABLES Pilar l Result Performing Organization Address [facility] Co de Phone Number [address] [address] * POCT glucose (02/22/2024 7:17 PM CDT) Glucose, POC 186 70 - 199 mg/dL Glucose comment 1 Use This Result [facility] Glucose comment 2 RN/MD Notified [facility] Blood 02/22/2024 7:17 PM CDT 02/22/2024 7:17 PM CDT Corbin Cole MD LAB POCT ORDERABLES - DEVICE Final Result Performing Organization Address [facility] de Phone Number [address] [address] * POCT glucose (02/22/2024 5:21 PM CDT) Glucose, POC 176 70 - 199 mg/dL Blood 02/22/2024 5:21 PM CDT 02/22/2024 5:21 PM CDT Corbin Cole MD LAB POCT ORDERABLES - DEVICE Final Result Performing Organization Address [facility] de Phone Number [address] [address] * Strep pneumoniae antigen, urine Urine (02/22/2024 3:05 PM CDT) [facility] S. pneumoniae Ag Negative Negative Comment: [...] ENERAL ORDERABLES Final Result Performing Organization Address [facility] Co de Phone Number [address] [address] * Legionella antigen Urine (02/22/2024 3:05 PM CDT) Legionella Ag Negative Negative Comment: Interpretive Data This test detects only Legionella pneumophila serogroup 1 antigen. Testing performed by [facility] ([phone]). Current interpretive data was last revised on 2020. Testing performed by: [facility], [address] [place]., [address] Urine 02/22/2024 3:05 PM CDT 02/22/2024 7:06 PM CDT Corbin Cole MD LAB MICROBIOLOGY - ENERAL ORDERABLES Final Result Performing Organization Address [facility] Co de Phone Number [place] [address] [place] [address] * MRSA Only (Staphylococcus aureus) PCR Nasal (02/22/2024 3:05 PM CDT) PCR Scrn, Methicillin resistant Staphylococcus aureus (MRSA) Not Detected Not Detected Comment: Interpretive Data Testing performed using Nucleic Acid Amplification with the [employer] Xpert MRSA NxG Assay. This assay detects target DNA from mecA, mecC and the SCCmec insertion site of Staphylococcus aureus using Real-Time PCR and has been cleared by the FDA. Performance characteristics have been verified by the [facility]. Current Interpretive Data was last revised on 2023 Nasal 02/22/2024 3:05 PM CDT 02/22/2024 3:30 PM CDT us Corbin Cole MD LAB MICROBIOLOGY - G ENERAL ORDERABLES Final Result [facility] [address] [place] [address] * Respiratory pathogen panel Nasopharyngeal (02/22/2024 3:05 PM CDT) Influenza A RNA Not Detected Not Detected Comment:Testing performed by : [facility], [address] [place]., [address] Influenza B RNA Not Detected Not Detected [facility] Comment:Testing performed by : [facility], [address] [place]., [address] RSV RNA Not Detected Not Detected [facility] Comment:Testing performed by : [facility], [address] [place]., [address] COVID-19 RNA Not Detected Not Detected [facility] Comment:Testing performed by : [facility], [address] [facility] [place] [address] Coronavirus 229E RNA Not Detected Not Detected [facility] Comment:Testing performed by : [facility], [address] [facility] [place] [address] Coronavirus HKU1 RNA Not Detected Not Detected [facility] Comment:Testing performed by : [facility], [address] [facility] [place] [address] Coronavirus NL63 RNA Not Detected Not Detected [facility] Comment:Testing performed by : [facility], [address] [facility] [place] [address] Coronavirus OC43 RNA Not Detected Not Detected [facility] Comment:Testing performed by : [facility], [address] [facility] [place] [address] Adenovirus DNA Not Detected Not Detected [facility] Comment:Testing performed by : [facility], [address] [facility] [place] [address] Metapneumovirus RNA Not Detected Not Detected [facility] Comment:Testing performed by : [facility], [address] [facility], [address] Rhinovirus/Enterov irus RNA Not Detected Not Detected [facility] Comment:Testing performed by : [facility], [address] [facility], [address] Parainfluenza 1 RNA Not Detected Not Detected [facility] Comment:Testing performed by : [facility], [address] [facility], [address] Parainfluenza 2 RNA Not Detected Not Detected [facility] Comment:Testing performed by : [facility], [address] [facility], [address] Parainfluenza 3 RNA Not Detected Not Detected [facility] Comment:Testing performed by : [facility], [address] [facility], [address] Parainfluenza 4 RNA Not Detected Not Detected [facility] Comment:Testing performed by : [facility], [address] [facility], [address] B. pertussis DNA Not Detected Not Detected [facility] Comment:Testing performed by : [facility], [address] [facility], [address] B. parapertussis DNA Not Detected Not Detected [facility] Comment:Testing performed by : [facility], [address] [place] [address], [address] C. pneumoniae DNA Not Detected Not Detected [facility] Comment:Testing performed by : [facility], [address] [place] [address], [address] M. pneumoniae DNA Not Detected Not Detected [facility] Comment:Testing performed by : [facility], [address] [place] [address], [address] Nasopharyngeal 02/22/2024 3: 05 PM CDT 02/22/2024 4:56 PM CDT Narrative [facility] - 02/22/2024 5:56 PM CDT Is the Patient experiencing symptoms consistent with COVID?->Yes Surveillance testing for transplant patient?->No ??Interpretive Data The [employer] FilmArray Respiratory Panel (RP2.1) assay is a [...] assay has FDA clearance for testing of COMMERCIAL ESTIMATOR swabs. ??The performance of additional specimen types has been assessed by the performing laboratory. ??The performance characteristics of this assay have been determined by [facility]. Current interpretive data was last revised on 22. us Corbin Cole MD LAB MICROBIOLOGY - G ENERAL ORDERABLES Final Result Performing Organization Address City/[facility]/ZIP Co de Phone Number ZULEMA [facility] [place] [address] * Lactate (02/22/2024 2:27 PM CDT) Lactate 2.0 0.7 - 2.0 mmol/L Blood 02/22/2024 2:27 PM CDT 02/22/2024 2:31 PM CDT Corbin Cole MD LAB BLOOD ORDERABLES Final Result Performing Organization Address [facility] Phone Number ZULEMA [address] [address] * XR Chest PA Lateral 2 Views [...] D: ??02/22/2024 2:09 PM T: Report ID: [id number] Reading Location: ??[id number] Procedure Note Dallas Gonzalez MD - 02/22/2024 [...] Dallas Gonzalez M.D. KR T: Report ID: [id number] Reading Location: [place] [address] Corbin Cole MD IMG XR PROCEDURES Fi nal Result * (ABNORMAL) POCT glucose (02/22/2024 11:38 AM CDT) Glucose, POC 247(H) 70 - 199 mg/dL Glucose comment 1 Use This Result ZULEMA CHAVEZ Blood 02/22/2024 11:3 8 AM CDT 02/22/2024 11:38 AM CDT Corbin Cole MD LAB POCT ORDERABLES - DEVICE Final Result ZULEMA [address] [facility] Department [place] [address] * (ABNORMAL) Blood culture Blood (02/22/2024 10:26 AM CDT) Direct Specimen Exam Stain: Gram Positive Cocci in clusters Time to culture positivity (aerobic media): 36.2 hours Comment:Testing performed by : [facility], [address] [facility], [place]., [address] Report Final Report: Staphylococcus aureus For susceptibility results, refer to accession number [id number] on the blood culture from 02/22/2024 (.) ZULEMA CHAVEZ Comment:Testing performed by : [facility], [address] [place]., [address] Organism STAPHYLOCOCCUS AUREUS ZULEMA CHAVEZ Blood 02/22/2024 [...] organism identification may be performed using the Cartela ABigene Gram-Positive Blood Culture Assay. This assay detects microbial DNA in positive blood culture broth via hybridization of target DNA to capture oligonucleotides on a microarray. This assay has been cleared by the [place] Food and Drug Administration and its performance characteristics have been verified by the [facility]. 5. ?For questions about this culture, contact the Microbiology Laboratory at [phone]. Interpretive data was last revised on 2020. Corbin Cole MD LAB MICROBIOLOGY - G ENERAL ORDERABLES Final Result ZULEMA CHAVEZ [address] [facility] Department [place] [address] * (ABNORMAL) Blood culture Blood (02/22/2024 10:21 AM CDT) Direct Specimen Exam Molecular Analysis: Staphylococcus aureus, methicillin susceptible (MSSA) detected by the Verigene Blood Culture Nucleic Acid Test. This test does not exclude the possibility of a mixed bacterial infection. Notification of: Staphylococcus aureus, methicillin susceptible (MSSA) called to and read back by: Gareth Suárez MT ([phone]) on 02/23/2024 17:09:44 by: Anjelica Zayas MT Comment:Testing performed by : [facility], [address] [place] [address]., [address] Direct Specimen Exam Stain: Gram Positive Cocci in clusters Time to culture positivity (aerobic media): 23.8 hours Notification of: Gram Positive Cocci in clusters called to and read back by: Irish Dee MT [phone] on 02/23/2024 13:58:10 by: Quiana Pierre MLS Test result called to and read back by [email or web address] on 02/23/2024 14:08:19 by [email or web address] ZULEMA Comment:Testing performed by : [facility], [address] [place] [address]., [address] Report Final Report: Staphylococcus aureus Methicillin susceptible (MSSA) by penicillin binding protein 2a (PBP2a) testing. (.) ZULEMA Comment:Testing performed by : [facility], [address] [place] [address], [address] Organism STAPHYLOCOCCUS AUREUS ZULEMA Blood 02/22/2024 10:2 [...] organism identification may be performed using the Cartela ABigene Gram-Positive Blood Culture Assay. This assay detects microbial DNA in positive blood culture broth via hybridization of target DNA to capture oligonucleotides on a microarray. This assay has been cleared by the [place] Food and Drug Administration and its performance characteristics have been verified by the [facility]. 5. ?For questions about this culture, contact the Microbiology Laboratory at [phone]. Interpretive data was last revised on 2020. [...] G ENERAL ORDERABLES Final Result LESLIEELLY CHAVEZ [address] [facility] Department [place] [address] * POCT glucose (02/22/2024 7:46 AM CDT) [facility] Glucose, POC 191 70 - 199 mg/dL Glucose comment 1 Use This Result ZULEMA CHAVEZ Blood 02/22/2024 7:46 AM CDT 02/22/2024 7:46 AM CDT Corbin Cole MD LAB POCT ORDERABLES - DEVICE Final Result Performing Organization Address City/[facility] Co de Phone Number ZULEMA [address] [facility] [place] [address] * eGFR (02/22/2024 5:18 AM CDT) [facility] eGFR >90 >=60 mL/min/1. 73 [...] ORDERABLES Pilar l Result Performing Organization Address City/[facility]/ZIP Co de Phone Number ZULEMA [address] [facility] [place] [address] * (ABNORMAL) CBC without differential (02/22/2024 5:18 AM CDT) [facility] WBC 17.1(H) 3.8 - 9.9 K/cumm Hgb 9.6(L) 13.0 - 17.5 g/dL [facility] Hct 28.6(L) 38.9 - 50.3 % [facility] Plt 317 150 - 400 K/cumm [facility] MPV 10.0 9.1 - 12.3 fL [facility] RBC 2.73(L) 4.30 - 5.80 M/cumm [facility] MCV 104.8(H) 81.3 - 96.4 fL [facility] MCH 35.2(H) 27.1 - 33.3 pg [facility] MCHC 33.6 32.3 - 35.7 g/dL [facility] RDW CV 15.6(H) 11.1 - 14.9 % [facility] RDW SD 59.9(H) 35.7 - 48.1 fL [facility] NRBC abs 0.03(H) 0.00 - 0.01 K/cumm [facility] Blood 02/22/2024 5:18 AM CDT 02/22/2024 5:48 AM CDT Josefa Taylor NP LAB BLOOD ORDERABLES Pilar armas Result [place] [id number] [facility] Department [place] [address] * (ABNORMAL) Basic metabolic panel (02/22/2024 5:18 AM CDT) [facility] Sodium 134(L) 135 - 145 mmol/L Potassium, pl 3.7 3.3 - 4.9 mmol/L [facility] Chloride 97 97 - 110 mmol/L [facility] CO2 29 22 - 32 mmol/L [facility] Anion gap 8 2 - 15 mmol/L [facility] BUN 18 6 - 25 mg/dL [facility] Creatinine 0.75(L) 0.80 - 1.30 mg/dL [facility] Glucose 235(H) 70 - 199 mg/dL [facility] [...] ORDERABLES Pilar l Result Performing Organization Address City/[facility]/ZIP Co de Phone Number ZULEMA [address] [place] [address] * (ABNORMAL) POCT glucose (02/22/2024 4:24 AM CDT) Glucose, POC 279(H) 70 - 199 mg/dL Glucose comment 1 Use This Result ZULEMA Blood 02/22/2024 4:24 AM CDT 02/22/2024 4:24 AM CDT Result [facility] Corbin Cole MD LAB POCT ORDERABLES - DEVICE Final Result Performing Organization Address City/[facility]/ZIP Co de Phone Number [address] [place] [address] * (ABNORMAL) POCT glucose (02/22/2024 1:58 AM CDT) Glucose, POC 272(H) 70 - 199 mg/dL Glucose comment 1 Use This Result [facility] Glucose comment 2 Will Notify Nurse ZULEMA Blood 02/22/2024 1:58 AM CDT 02/22/2024 1:58 AM CDT Corbin Cole MD LAB POCT ORDERABLES - DEVICE Final Result Performing Organization Address [facility] de Phone Number ZULEMA [address] [address] * (ABNORMAL) POCT glucose (02/22/2024 12:04 AM CDT) Glucose, POC 262(H) 70 - 199 mg/dL Glucose comment 1 Use This Result ZULEMA Blood 02/22/2024 12:0 4 AM CDT 02/22/2024 12:04 AM CDT Corbin Cole MD LAB POCT ORDERABLES - DEVICE Final Result Performing Organization Address [facility] de Phone Number ZULEMA [address] [address] * POCT glucose (02/21/2024 7:44 PM CDT) Glucose, POC 184 70 - 199 mg/dL Glucose comment 1 Use This Result ZULEMA Blood 02/21/2024 7:44 PM CDT 02/21/2024 7:44 PM CDT Corbin Cole MD LAB POCT ORDERABLES - DEVICE Final Result Performing Organization Address [facility] de Phone Number ZULEMA [address] [address] * (ABNORMAL) POCT glucose (02/21/2024 6:26 PM CDT) Glucose, POC 217(H) 70 - 199 mg/dL Glucose comment 1 Use This Result ZULEMA Glucose comment 2 RN/MD Notified ZULEMA Blood 02/21/2024 6:26 PM CDT 02/21/2024 6:26 PM CDT us Corbin Cloe MD LAB POCT ORDERABLES - DEVICE Final Result Performing Organization Address [facility] de Phone Number ZULEMA [address] [address] * POCT glucose (02/21/2024 4:04 PM CDT) [facility] Glucose, POC 118 70 - 199 mg/dL Glucose comment 1 Use This Result LESLIEELLY Glucose comment 2 RN/MD Notified ZULEMA Blood 02/21/2024 4:04 PM CDT 02/21/2024 4:04 PM CDT Corbin Cole MD LAB POCT ORDERABLES - DEVICE Final Result Performing Organization Address [facility] de Phone Number ZULEMA [address] [place] [address] * (ABNORMAL) POCT glucose (02/21/2024 11:27 AM CDT) [facility] Glucose, POC 330(H) 70 - 199 mg/dL Blood 02/21/2024 11:2 7 AM CDT 02/21/2024 11:27 AM CDT Corbin Cole MD LAB POCT ORDERABLES - DEVICE Final Result Performing Organization Address [facility] de Phone Number ZULEMA [address] [place] [address] * eGFR (02/21/2024 8:37 AM CDT) [facility] eGFR >90 >=60 mL/min/1. 73 [...] NP LAB BLOOD ORDERABLES Pilar armas Result [facility] [address] [facility] Department [place] [address] * (ABNORMAL) CBC without differential (02/21/2024 8:37 AM CDT) WBC 9.6 3.8 - 9.9 K/cumm Hgb 12.3(L) 13.0 - 17.5 g/dL [facility] Hct 37.7(L) 38.9 - 50.3 % [facility] Plt 392 150 - 400 K/cumm [facility] MPV 9.9 9.1 - 12.3 fL [facility] RBC 3.50(L) 4.30 - 5.80 M/cumm [facility] MCV 107.7(H) 81.3 - 96.4 fL [facility] MCH 35.1(H) 27.1 - 33.3 pg [facility] MCHC 32.6 32.3 - 35.7 g/dL [facility] RDW CV 15.5(H) 11.1 - 14.9 % [facility] RDW SD 61.1(H) 35.7 - 48.1 fL [facility] NRBC abs 0.00 0.00 - 0.01 K/cumm [facility] Blood 02/21/2024 8:37 AM CDT 02/21/2024 8:52 AM CDT [facility] Brandon NP LAB BLOOD ORDERABLES Pilar l Result Performing Organization Address [facility] de Phone Number [address] [place] [address] * (ABNORMAL) Basic metabolic panel (02/21/2024 8:37 AM CDT) Pathologist [facility] Sodium 137 135 - 145 mmol/L Potassium, pl 4.0 3.3 - 4.9 mmol/L [facility] Chloride 98 97 - 110 mmol/L [facility] CO2 29 22 - 32 mmol/L [facility] Anion gap 10 2 - 15 mmol/L [facility] BUN 15 6 - 25 mg/dL [facility] Creatinine 0.54(L) 0.80 - 1.30 mg/dL [facility] Glucose 205(H) 70 - 199 mg/dL [facility] [...] 2022. Calcium 8.9 8.5 - 10.3 mg/dL [facility] Blood 02/21/2024 8:37 AM CDT 02/21/2024 8:52 AM CDT [facility] Brandon NP LAB BLOOD ORDERABLES Pilar l Result Performing Organization Address [facility] Co de Phone Number [address] [address] * Magnesium (02/21/2024 8:37 AM CDT) Magnesium 2.1 1.4 - 2.5 mg/dL Blood 02/21/2024 8:37 AM CDT 02/21/2024 8:52 AM CDT Josefa Taylor NP LAB BLOOD ORDERABLES Pilar l Result [address] [address] * POCT glucose (02/21/2024 8:01 AM CDT) Glucose, POC 174 70 - 199 mg/dL Blood 02/21/2024 8:01 AM CDT 02/21/2024 8:01 AM CDT Corbin Cole MD LAB POCT ORDERABLES - DEVICE Final Result Performing Organization Address [facility] Co de Phone Number [address] [address] * (ABNORMAL) POCT glucose (02/20/2024 8:39 PM CDT) Pathologist [facility] Glucose, POC 271(H) 70 - 199 mg/dL Glucose comment 1 Use This Result [facility] Glucose comment 2 RN/MD Notified [facility] Blood 02/20/2024 8:39 PM CDT 02/20/2024 8:39 PM CDT Pacheco Quintanilla MD LAB POCT ORDERABLES - DEV ICE Final Result Performing Organization Address City/[facility]/ZIP Co de Phone Number [address] [address] * (ABNORMAL) POCT glucose (02/20/2024 7:25 PM CDT) Glucose, POC 203(H) 70 - 199 mg/dL Glucose comment 1 Use This Result [facility] Glucose comment 2 RN/MD Notified ZULEMA Blood 02/20/2024 7:25 PM CDT 02/20/2024 7:25 PM CDT Pacheco Quintanilla MD LAB POCT ORDERABLES - DEV ICE Final Result Performing Organization Address [facility] Co de Phone Number [address] Department [place] [address] * POCT glucose (02/20/2024 6:34 PM CDT) Glucose, POC 181 70 - 199 mg/dL Blood 02/20/2024 6:34 PM CDT 02/20/2024 6:34 PM CDT Pacheco Quintanilla MD LAB POCT ORDERABLES - DEV ICE Final Result Performing Organization Address [facility] Co de Phone Number [address] [place] [address] * Surgical pathology (02/20/2024 12:58 PM CDT) Tissue (Gastric/Stomach biopsy) 02/20/2024 12:58 PM CDT Tissue (Esophageal biopsy) 02/20/2024 12:59 PM CDT Narrative PATHOLOGY [facility] - 02/27/2024 12:23 PM CDT [facility] Department of Pathology [address] [place] [address] ?? Note to Patients: ??This report may [...] 58) Gender: ??M Address: ??[address] [place], [place] [address] [facility] #: [id number] Service: Medical Location: Patient Type: [facility] INPATIENT ? Taken: 02/20/2024 Received: 02/20/2024 [...] 0. ?? jjmhb/02/20/2024 14:23 DOMITILA Conrad, PA ([facility] Microscopic slide review and interpretation for this case was performed at [facility], Department of Surgical Pathology, [address] [facility], [place] [id number], ??[place], [place] ??[address] ?? CLIA # [id number] The Herpes Simplex Virus I test was performed at [facility] Department of Surgical Pathology, [address] [place], [place] ??[address]. The Herpes Simplex Virus II test was performed at [facility] Department of Surgical Pathology, [address] [place], [place] ??[address]. The Cytomegalovirus test was performed at [facility], Department of Surgical Pathology, [address] [place], [place] ??[address]. us Gee Mcdaniel MD LAB PATHOLO GY ORDERABLES Final Result Performing Organization Address [facility] Co de Phone Number [facility] * POCT glucose (02/20/2024 12:43 PM CDT) Glucose, POC 126 70 - 199 mg/dL Blood 02/20/2024 12:4 3 PM CDT 02/20/2024 12:43 PM CDT us Pacheco Quintanilla MD LAB POCT ORDERABLES - DEV ICE Final Result Performing Organization Address [facility]/ZIP Co de Phone Number [facility] [address] [facility] [place] [address] * EGD (02/20/2024 12:37 PM CDT) Anatomical Region Laterality Modality Other Narrative Procedure Note Gee Mcdaniel MD - 02/20/2024 12:37 PM CDT [facility] GI ENDOSCOPY Patient Name: Bri Jones Procedure Date: 02/20/2024 12:37 PM Date of : 1965 Admit Type: Inpatient Age: 58 Gender: Male Attending MD: Gee Ravi M.D. Room: [facility] ENDOSCOPY ROOM [facility] Note Status: Finalized Procedure: Upper GI endoscopy [...] On: 02/20/2024 12:37 PM Recognized by the [employer] for promoting quality [...] NP LAB BLOOD ORDERABLES Pilar armas Result [facility] [address] [facility] Department [place] [address] * eGFR (02/20/2024 11:39 AM [...] ORDERABLES Pilar l Result Performing Organization Address [facility] Co de Phone Number LESLIE[address] [place] [address] * T4, free (02/20/2024 11:39 AM CDT) Free T4 1.13 0.90 - 1.70 ng/dL Blood 02/20/2024 11:3 9 AM CDT 02/20/2024 11:44 AM CDT Narrative ZULEMA - 02/20/2024 1:50 PM CDT This test was reflexed from a TSH result. [facility] LAB BLOOD ORDERABLES Pilar l Result Performing Organization Address [facility] de Phone Number [address] [place] [address] * (ABNORMAL) Thyroid Function [place] (02/20/2024 11:39 AM CDT) TSH 0.17(L) 0.30 - 4.20 mcIUnit/mL Blood 02/20/2024 11:3 9 AM CDT 02/20/2024 11:44 AM CDT Josefa Taylor NP LAB BLOOD ORDERABLES Pilar l Result Performing Organization Address [facility] de Phone Number ZULEMA [address] [address] * (ABNORMAL) Hemoglobin A1c (02/20/2024 11:39 AM CDT) [facility] Hgb A1C 6.7(H) 4.0 - 5.6 % Estimated Average Glucose 146 mg/dL [facility] Comment: The ADA recommends reporting an estimated Average Glucose (eAG) with all Hemoglobin A1c results using the equation derived from a study of 507 normal and diabetic adults. ??Minority populations were underrepresented and children were not included. ?? (Diabetes Care 31:2785-1790, 2008). ??The eAG is not equivalent to a fasting glucose. Blood 02/20/2024 11:3 9 AM CDT 02/20/2024 11:44 AM CDT Josefa Taylor NP LAB BLOOD ORDERABLES Pilar l Result Performing Organization Address [facility] de Phone Number [address] [address] * (ABNORMAL) CBC without differential (02/20/2024 11:39 AM CDT) [facility] WBC 11.9(H) 3.8 - 9.9 K/cumm Hgb 12.0(L) 13.0 - 17.5 g/dL [facility] Hct 35.8(L) 38.9 - 50.3 % [facility] Plt 359 150 - 400 K/cumm [facility] MPV 10.0 9.1 - 12.3 fL [facility] RBC 3.41(L) 4.30 - 5.80 M/cumm [facility] MCV 105.0(H) 81.3 - 96.4 fL [facility] MCH 35.2(H) 27.1 - 33.3 pg [facility] MCHC 33.5 32.3 - 35.7 g/dL [facility] RDW CV 16.1(H) 11.1 - 14.9 % [facility] RDW SD 62.1(H) 35.7 - 48.1 fL [facility] NRBC abs 0.02(H) 0.00 - 0.01 K/cumm [facility] Blood 02/20/2024 11:3 9 AM CDT 02/20/2024 11:44 AM CDT Josefa Taylor NP LAB BLOOD ORDERABLES Pilar armas Result [facility] [address] [facility] [place] [address] * (ABNORMAL) Basic metabolic panel (02/20/2024 11:39 AM CDT) Sodium 138 135 - 145 mmol/L Potassium, pl 4.0 3.3 - 4.9 mmol/L [facility] Chloride 99 97 - 110 mmol/L [facility] CO2 31 22 - 32 mmol/L [facility] Anion gap 8 2 - 15 mmol/L [facility] BUN 17 6 - 25 mg/dL [facility] Creatinine 0.64(L) 0.80 - 1.30 mg/dL [facility] Glucose 138 70 - 199 mg/dL [facility] [...] 2022. Calcium 8.6 8.5 - 10.3 mg/dL [facility] Blood 02/20/2024 11:3 9 AM CDT 02/20/2024 11:44 AM CDT Josefa Escaleragardner COMMERCIAL ESTIMATOR LAB BLOOD ORDERABLES Pilar l Result Performing Organization Address [facility] Co de Phone Number ZULEMA [address] [address] * Magnesium (02/20/2024 11:39 AM CDT) Magnesium 1.9 1.4 - 2.5 mg/dL Blood 02/20/2024 11:3 9 AM CDT 02/20/2024 11:44 AM CDT Josefaflori DewittBrandon NP LAB BLOOD ORDERABLES Pilar armas Result Performing Organization Address [facility] de Phone Number ZULEMA [address] [address] documented in this encounter Visit Diagnoses Diagnosis [...] 2.5 mg, nebulization, Every 6 hours PRN (supervisor correspondence section), wheezing, Starting on Sat03/05/24 at 1342 Given 03/05/2024 7:51 PM CDT 2.5 mg albuterol HFA (PROVENTIL HFA,VENTOLIN HFA,PROAIR HFA) 90 mcg/actuation inhaler 2 puff 2 puff, inhalation, Every 6 hours while awake (supervisor correspondence section), First dose (after last modification) on Sat03/03/24 [...] puff 2 puff, inhalation, 2 times daily (supervisor correspondence section), First dose on Sat02/20/24 at 2000, Rinse [...] Call MD for each episode of hypoglycemia. VACUUM TECHNICIAN STATES GLUTOSE-15 CONTAINS GLUCOSE 40% W/W (50% [...] 03/06/2024 8:38 AM CDT 40 mg peg [id number] (ARTIFICAL TEARS) 1-0.2-0.2 % ophthalmic solution 1 [...] inhaler 2 puff 2 puff, inhalation, Daily (supervisor correspondence section), First dose on Sat02/21/24 at 0900, Trelegy [...] (acute myeloid leukemia) in remission ([facility]) TAKE 1 TABLET(400 MG) BY [...] long-term current use of insulin ([facility]) 1 Device 3 (three) times [...] unit capsuleIndications:AML (acute myeloid leukemia) in remission ([facility]),H/O allogeneic bone marrow transplant ([facility]),Vitamin D deficiency TAKE 1 CAPSULE BY MOUTH ONCE A WEEK DIRECTED Error 10/24/2021 02/20/2024 gabapentin (NEURONTIN) 300 mg capsuleIndications:AML (acute myeloid leukemia) in remission ([facility]) TAKE ONE CAPSULE BY MOUTH FOUR TIMES DAILY @[id number]-9PM Error 05/20/2023 02/20/2024 insulin glargine (LANTUS, BASAGLAR) 100 unit/mL (3 mL) pen for injectionIndications:Typ e 2 diabetes mellitus with hyperosmolarity without coma, with long-term current use of insulin ([facility]) INJECT 15 UNITS NIGHTLY SUB-Q. Error 02/03/2021 02/20/2024 insulin lispro (HumaLOG, ADMELOG) 100 unit/mL pen for injectionIndications:Typ e 2 diabetes mellitus with hyperosmolarity without coma, with long-term current use of insulin ([facility]) INJECT 5-10 UNITS TID WITH MEALS PLUS SLIDING SCALE. TDD OF 35 UNITS. 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),Jvrxx-klaqcz-qzhc disease (HCC) Take 1 tablet (10 mg total) by mouth daily Error 06/26/2022 02/20/2024 mupirocin (BACTROBAN) 2 % ointmentIndications:Loca l skin infection Apply topically 3 (three) times a day Error 05/22/2023 02/20/2024 mycophenolate mofetil (CELLCEPT) 500 mg tabletIndications:AML (acute myeloid leukemia) in remission ([facility]),Cnmxs-dqkaky-cqvm disease (HCC) TAKE TWO TABLETS BY MOUTH TWICE DAILY @9am & 5pm Error 08/16/2023 02/20/2024 predniSONE (DELTASONE) 10 mg tabletIndications:Chroni c obstructive pulmonary disease, unspecified COPD type ([facility]) Take 40mg (4 tablets) daily [...] immediate-release capsuleIndications:AML (acute myeloid leukemia) in remission ([facility]) TAKE ONE CAPSULE BY MOUTH [...] (acute myeloid leukemia) in remission ([facility]) TAKE ONE TABLET BY MOUTH TWICE DAILY @9am & 5pm Error 05/29/2023 02/20/2024 Xarelto 20 mg tabletIndications:AML (acute myeloid leukemia) in remission ([facility]) TAKE ONE TABLET BY MOUTH DAILY AT 9 AM Error 06/17/2023 02/20/2024 furosemide (LASIX) 20 mg tabletIndications:Type 2 diabetes mellitus with hyperosmolarity without coma, with long-term current use of insulin ([facility]) Take 1 tablet (20 mg total) by mouth daily As needed. Error 01/15/2020 02/20/2024 rivaroxaban (Xarelto) 20 mg tabletIndications:AML (acute myeloid leukemia) in remission ([facility]) PCP to address as outpatient Stop Taking [...] by mouth 4 (four) times a day @[id number]-9PM 4 acyclovir (ZOVIRAX) 400 mg tablet Take [...] puff, inhalation, Every 6 hours while awake (supervisor correspondence section), First dose (after last modification) on Sat03/03/24 at 0900 0830 (Given - Provider: Page Bunch, SECURITY SYSTEM TECHNICIAN)1340 (Not Given - Provider: Page Bunch, SECURITY SYSTEM TECHNICIAN - Reason: Contraindicated)1950 (Not Given - Provider: Anaid Marsh, SECURITY SYSTEM TECHNICIAN - Reason: Patient/family refused - Comment: Pt wanted the albuterol neb because he said it worked better for him) 0810 (Given - Provider: Page Bunch, SECURITY SYSTEM TECHNICIAN)1351 (Given - Provider: Page Bunch, SECURITY SYSTEM TECHNICIAN)2103 (Given - Provider: Tasia Abreu, POWERHOUSE LABORER) 0702 (Given - Provider: Pat Busby, SECURITY SYSTEM TECHNICIAN)1412 (Given - Provider: Pat Busby, SECURITY SYSTEM TECHNICIAN) atorvastatin (LIPITOR) tablet 40 mg 40 mg, [...] 1) 2 puff, inhalation, 2 times daily (supervisor correspondence section), First dose on Sat02/20/24 at 2000, Rinse mouth with water after use. Do not swallow. 0825 (Given - Provider: Page Bunch, SECURITY SYSTEM TECHNICIAN)1950 (Given - Provider: Anaid Marsh, SECURITY SYSTEM TECHNICIAN) 0810 (Given - Provider: Page Bunch, SECURITY SYSTEM TECHNICIAN)2103 (Given - Provider: Tasia Abreu, POWERHOUSE LABORER) 0703 (Given - Provider: Pat Busby, SECURITY SYSTEM TECHNICIAN) cefepime (MAXIPIME) 1,000 mg in sodium chloride [...] Wick, BECKI)1240 (New Bag - Provider: Ethel eD Jesus, BECKI) gabapentin (NEURONTIN) capsule 300 mg [...] Bonnie Wick RN) 0524 (Given - Provider: Bonnie Wick RN)1400 [...] puff(Linked Group 1) 2 puff, inhalation, Daily (supervisor correspondence section), First dose on Sat02/21/24 at 0900, Trelegy subs to Symbicort + Spiriva 0830 (Given - Provider: Page Bunch, SECURITY SYSTEM TECHNICIAN) 0810 (Given - Provider: Page Bunch, SECURITY SYSTEM TECHNICIAN) 0703 (Given - Provider: Pat Busby, SECURITY SYSTEM TECHNICIAN) voriCONAZOLE (VFEND) tablet 200 mg 200 mg, [...] fever greater than 38.3 C, Starting on Nagy 02/20/24 at 1126, Indications: Fever, Pain 1745 (Given - Provider: Aditi Hazel RN)2229 (Given - Provider: Toya Albright RN) 1633 (Given - Provider: Hayley Dykes, RN) albuterol 2.5 mg/0.5 mL nebulizer solution 2.5 mg (CANCELED) 2.5 mg, nebulization, Every 4 hours PRN (supervisor correspondence section), wheezing, Starting on Sat03/02/24 at 2100 1338 (Given - Provider: Page Bunch, SECURITY SYSTEM TECHNICIAN) albuterol 2.5 mg/0.5 mL nebulizer solution 2.5 mg 2.5 mg, nebulization, Every 6 hours PRN (supervisor correspondence section), wheezing, Starting on Sat03/05/24 at 1342 1951 (Given - Provider: Anaid Marsh, SECURITY SYSTEM TECHNICIAN) Carrier Fluids for Secondary Infusion - 0.9% [...] Call MD for each episode of hypoglycemia. VACUUM TECHNICIAN STATES GLUTOSE-15 CONTAINS GLUCOSE 40% W/W (50% [...] at 1126, Indications: Nausea and Vomiting peg 873-jhjqnmetfyok-szmtaced (ARTIFICAL TEARS) 1-0.2-0.2 % ophthalmic solution 1 [...] override 1517 (Given by Other - Provider: dAiti Hazel RN) sodium chloride 0.9 % nebulizer solution - ADS Override Pull (COMPLETED) Starting on Sat03/05/24 at 1949, For 1 dose, Created by cabinet override 195 (Given - Provider: Anaid Marsh SECURITY SYSTEM TECHNICIAN) Linked Groups Order Group 1: budesonide-formoteroL (SYMBICORT) 160-4.5 mcg/actuation inhaler 2 puffJump to med 2 puff, inhalation, 2 times daily (supervisor correspondence section), First dose on Sat02/20/24 at 2000, Rinse mouth with water after use. Do not swallow. And tiotropium bromide (SPIRIVA RESPIMAT) 2.5 mcg/actuation inhaler 2 puffJump to med 2 puff, inhalation, Daily (supervisor correspondence section), First dose on Sat02/21/24 at 0900, Trelegy [...] Call MD for each episode of hypoglycemia. VACUUM TECHNICIAN STATES GLUTOSE-15 CONTAINS GLUCOSE 40% W/W (50% [...] free injection 10-20 mg 1 02/29/2024 peg 549-eyxdqtesmvde-mrtzkcz n (ARTIFICAL TEARS) 1-0.2-0.2 % ophthalmic solution [...] 2 02/21/2024 04/0 02/2024 insulin glargine (LANTUS, [facility]) 100 unit/mL injection 10 Units 1 02/21/2024 insulin lispro (HumaLOG, [facility]) 100 unit/mL injection 3 Units 1 02/21/2024 [...] ative free injection 25 mcg 1 02/20/2024 efahmjmpvfz-jwznvikvw-gxfzjg er (TRELEGY ELLIPTA) 200-62.5-25 mcg inhaler 1 [...] documented as of this encounter Care Teams Underwriting Service Representative Relationship Specialty Start Date End Date Gama Lindsay DO PCP - General Internal Medicine 02/02/21 Josué Del Valle MD PhD Medical Oncologist/Sheriff Deputy Medical Oncology 08/26/19 Cal Carranza DO [address] [place] [address] Bench Manager Internal Medicine 06/12/23 Halie Khan MD [address] [place] [address] Social Services Director Critical Care Med 06/12/23 documented as of this encounter
--- OUTSIDE RECORDS SUMMARY | 2024-11-22 12:53 | XMS_ITS | Encounter Summary ---
Author Organization [facility] Address [address] [place] [address] Phone Care Team Providers Care Two Way Radio Installer Name Role Phone Josué Del Valle MD PhD Unavailable [phone] Kirt Lindsay DO Primary Care Provider [phone] Cal Carranza DO Unavailable [phone] Halie Khan MD Unavailable [phone] Wilfred Kinsey MD Unavailable Encounter Details Date Type Department Care Team (Late st Contact Info) Description 03/06/2024 Telephone [facility] Oncology [address] [facility] Advanced Medicine 7th [place] [address] Irina Conrad Social History Tobacco Use Types Packs/Day Years Used Date Smoking Tobacco: Some Days Cigarettes 0.5 40 Started: 1985 Smokeless Tobacco: Never Comments:pt states tried to quit [facility] Utilities Answer Date Recorded In [...] often do you attend chur ch or oriental orthodox services? Never 02/20/2024 Do you belong to [...] slept in a assisted (including now)? No 02/20/2024 Personal Safety Answer Date Recorded Have you ever been in or are you currently in a harmful physical or emotional relationship or is someone making you feel afraid or unsafe? 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 Gender Identity Not on file Sexual Orientation [...] documented as of this encounter Care Teams Two Way Radio Installer Relationship Specialty Start Date End Date Kirt Lindsay DO PCP - General Internal Medicine 02/02/21 Josué Del Valle MD PhD Medical Oncologist/Software Sales Consultant Medical Oncology 08/26/19 Cal Carranza DO [address] [place] [address] Fisheries Management Biologist Internal Medicine 06/12/23 Halie Khan MD [address] [facility] [address] [place] [address] Cold Roll Operator Critical Care Med 06/12/23 Wilfred Kinsey MD [address] [address] Consulting Physician Gastroenterology 03/02/24 documented as of this encounter
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
--- OUTSIDE RECORDS SUMMARY | 2024-11-22 12:54 | XMS_ITS | Encounter Summary ---
Author Organization [facility] Address [address] [place] [address] Phone Care Team Providers Care Adjunct Professor Of Voice Name Role Phone Josué Del Valle MD PhD Unavailable [phone] Kirt Lindsay DO Primary Care Provider [phone] Cal Carranza DO Unavailable [phone] Halei Khan MD Unavailable [phone] Reason for Visit * Oncology (Routine) - Closed Specialty Diagnoses / Procedures Referred By Contac t Referred To Contact Medical Oncology / Blood and Marrow Transplant Diagnoses AML (acute myeloid leukemia) in remission (HCC) [facility] Scheduling [address] [place] [address] Phone: tel: Josué Del Valle MD PhD [address] DIV IM BONE MARROW TRANSPLANT, [address] [place] [address] Phone: tel: fax: Referral ID Status Reason Start Date Expiration Date V isits Requested Visits Authorized [id number] Closed Specialty Services Required 06/05/2021 11/17/2023 99 99 Encounter Details Date Type Department Care Team (Late st Contact Info) Description 06/12/2023 11:00 AM CDT Office Visit 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 TREATMENT HISTORY: Induction with 7+3 and HiDAC consolidation x3. Decitabine maintenance on the CALGB 28771 protocol. Relapsed disease, status post AMD/[facility]. 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 TRANSPLANT HISTORY: Status post an allogeneic transplant with busulfan and Cytoxan on the [facility] allogeneic study with hissister, 08/27 match; with day 0 on 11/09/2009. 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 No [...] Bone mineral density was performed on a [employer] Densitometer. Based on machine cross-calibration and [...] mineral density scan were prepared by Melody Peña)([facility]) who is accredited by the International Society of Clinical Densitometry. The overall patient assessment and scan interpretation were performed by Jamie Porter M.D. who is certified by the International Society of Clinical Densitometry. [id number] MEDICATIONS: Current Outpatient Medications: acetaminophen (TYLENOL) 500 [...] flash glucose scanning reader (FreeStyle Evaristo 2 [place]) [facility], Use to test blood glucose continuously, Disp: 1 each, Rfl: 1 flash glucose sensor (FreeStyle Evaristo 2 Sensor) kit, Change sensor every 14 days, Disp: 2 kit, Rfl:11 lqgkrplyqbv-igfwhdstm-mggrqhoh (Trelegy Ellipta) 200-62.5-25 mcg inhaler, Inhale 1 puff daily, Disp: 60 each, Rfl: 3 gabapentin (NEURONTIN) 300 mg capsule, TAKE ONE CAPSULE BY MOUTH FOUR TIMES DAILY @3NE-9OD-2OP-9PM,Disp: 120 capsule, Rfl: 11 insulin glargine (LANTUS, [...] allo transplant + 4963 days ago. Chronic ghwfg-yvuonw-eawq disease. MMF 1 g b.i.d., tacro 0.5 [...] heart failure/high cholestrol- Lipitor 40mg a day. [place] 3 supplements. PRN lasix as needed. Vitamin D deficiency/bone health- Continue oral for now. He is getting reclast in past per endocrine. ROV 09/09/2023 Narcisa Kilgore RN, PRECISION LENS GENERATOR in collaboration with Josué Del Valle M.D., Ph.D. Chief, Division of Oncology/customer development representative Section of BMT & Leukemia Cosigned by Josué Del Valle MD PhD at 06/13/2023 4:13 PM CDT documented in this encounter Nursing Notes * Damari Sanchez RN - 06/12/2023 11:00 AM CDT TODAY: Recent admit at OSH for COPD Ex. On pred + albuterol + Antibiotic. +4980 Follow-up: 3 month JFD documented in this [...] 023 documented in this encounter Care Teams Adjunct Professor Of Voice Relationship Specialty Start Date End Date Kirt Lindsay DO PCP - General Internal Medicine 02/02/21 Josué Del Valle MD PhD Medical Oncologist/Commercial Representative Medical Oncology 08/26/19 Cal Carranza DO [address] [facility] [address] [place] [address] Waste Machine Operator Internal Medicine 06/12/23 Halie Khan MD [address] [facility] [address] [place] [address] Director Work Critical Care Med 06/12/23 documented as of this encounter
--- OUTSIDE RECORDS SUMMARY | 2024-11-22 12:54 | XMS_ITS | Encounter Summary ---
Author Organization [facility] Address [address] [place] [address] Care Team Providers Care Skiver Heel Tap Name Role Phone Josué Del Valle MD PhD Unavailable [phone] Kirt Lindsay DO Primary Care Provider [phone] Tay Charlton MD Unavailable [phone] Halie Khan MD Unavailable [phone] StarksAnt goldman MD Unavailable [phone] Encounter Details Date Type Department Care Team (Latest Contact Info) Description 06/11/2023 1:49 PM CDT - 06/11/2023 11:59 PM CDT Hospital Encounter [facility] ([facility]) [address] [place] [phone] Discharge Disposition: Discharge to home or self [...] on file Legal Sex Male 10:48 AM ACTIVE DIRECTORY ENGINEER Gender Identity Not on file Sexual Orientation Not on file documented as of this encounter Medications at Time of Discharge cholecalciferol (VITAMIN D-3) 25 mcg (1,000 unit) tablet Take 2 tablets (2,000 Units total) by mouth every morning 11/13/20 21 flash glucose scanning reader (Preisbock Evaristo 2 [place]) [facility] Use to test blood glucose [...] insulin ([facility]),Wprer-ouvxji-hiez disease ([facility] [...] days 2 kit 11 03/17/20 23 024 uiinjybofqw-zgylyxxpm-va lanter (Trelegy Ellipta) 200-62.5-25 mcg inhalerIndications:Chron ic [...] ONE CAPSULE BY MOUTH FOUR TIMES DAILY @5JL-6HX-9CE-9PM 120 capsule 11 05/20/20 23 024 insulin [...] [facility]) 06/11/20 024 montelukast (SINGULAIR) 10 mg tabletIndications:AML (acute myeloid leukemia) in remission ([facility]),Itsse-sctqzs-zwml disease ([facility]) Take 1 tablet (10 mg total) by mouth daily 90 tablet 1 06/26/20 22 024 mupirocin (BACTROBAN) 2 % ointmentIndications:Loca l skin infection Apply topically 3 (three) times a day 22 g 05/22/20 23 024 mycophenolate mofetil (CELLCEPT) 500 mg tabletIndications:AML (acute myeloid leukemia) in remission (HCC),Oxldc-fjfrvq-lwsx disease (HCC) TAKE 2 TABLETS(1000 MG) BY [...] on filedocumented in this encounter Care Teams Skiver Heel Tap Relationship Specialty Start Date End Date Kirt Lindsay DO PCP - General Internal Medicine 02/02/21 Josué Del Valle MD PhD Medical Oncologist/Appliance Service Representative Medical Oncology 08/26/19 Tay Charlton MD Consulting Physician Gastroenterology 12/03/21 06/11/23 Halie Khan MD [address] [place], [place] [address] Consulting Physician Pulmonary Disease 12/12/21 3 Ant Starks MD [address] [place], [place] [address] Consulting Physician Transplant Hepatology 01/12/22 documented as of this encounter
--- OUTSIDE RECORDS SUMMARY | 2024-11-22 12:54 | XMS_ITS | Encounter Summary ---
Author Organization [facility] Address [address] [place] [address] Phone Care Team Providers Care Dressage Instructor Name Role Phone Josué Del Valle MD PhD Unavailable Kirt Lindsay DO Primary Care Provider [phone] Tay Charlton MD Unavailable [phone] Halie Khan MD Unavailable [phone] StarksAnt goldman MD Unavailable [phone] Encounter Details Date Type Department Care Team (Late st Contact Info) Description 06/07/2023 Orders Only [facility] Bone Marrow Transplant [address] [facility] Advanced Medicine 7th Floor, [place] [address] Josué Del Valle MD PhD [address] DIV IM BONE MARROW TRANSPLANT, [address] [place] [address] Chronic obstructive pulmonary disease, unspecified [...] file 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[employer] Gender Identity Not on file Sexual Orientation [...] documented as of this encounter Care Teams Dressage Instructor Relationship Specialty Start Date End Date Kirt Lindsay DO PCP - General Internal Medicine 02/02/21 Josué Del Valle MD PhD Medical Oncologist/Vp Delivery Medical Oncology 08/26/19 Tay Charlton MD Consulting Physician Gastroenterology 12/03/21 06/11/23 Halie Khan MD [address] [facility] [address] [address] Consulting Physician Pulmonary Disease 12/12/21 3 Ant Starks MD [address] [address] Consulting Physician Transplant Hepatology 01/12/22 documented as of this encounter
--- OUTSIDE RECORDS SUMMARY | 2024-11-22 12:54 | XMS_ITS | Encounter Summary ---
Author Organization [facility] Address [address] [place] [address] Phone Care Team Providers Care Supervisor Microwave Name Role Phone Josué Del Valle MD PhD Unavailable [phone] Kirt Lindsay DO Primary Care Provider [phone] Cal Carranza DO Unavailable [phone] Halie Khan MD Unavailable [phone] Reason for Visit * Reason Onset Date Comments Prior Auth 12/20/2023 [employer] evaristo 2 Encounter Details Date Type Department Care Team (Late st Contact Info) Description 12/20/2023 Telephone [facility] Endocrinology Metabolism and Lipid [address] [facility] 5th [place] [address] [place] [address] Jamel Briscoe, EMT Prior Auth ([employer] evaristo 2) Social History Tobacco Use Types [...] file Legal 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 N DISTRIBUTOR documented in this encounter Plan of Treatment Not on file documented as of this encounter Visit Diagnoses Not on filedocumented in this encounter Care Teams Supervisor Microwave Relationship Specialty Start Date End Date Kirt Lindsay DO PCP - General Internal Medicine 02/02/21 Josué Del Valle MD PhD Medical Oncologist/Test Analyst Medical Oncology 08/26/19 Cal Carranza DO [address] [place] [address] Yardage Tufting Machine Operator Internal Medicine 06/12/23 Halie Khan MD [address] [place] [address] Risk Management Internship Critical Care Med 06/12/23 documented as of this encounter
--- OUTSIDE RECORDS SUMMARY | 2024-11-22 12:54 | XMS_ITS | Encounter Summary ---
Author Organization [facility] Address [address] [address] Care Team Providers Care Shagger Name Role Phone Josué Del Valle MD PhD Unavailable [phone] Kirt Lindsay DO Primary Care Provider [phone] Tay Charlton MD Unavailable [phone] Halie Khan MD Unavailable [phone] StarksAnt goldman MD Unavailable [phone] Reason for Visit * Reason Comments Insect Bite Insect bite, one one bottom lip, one 2 on right arm and one on his left arm, oozing and itchy, noticed it today Encounter Details Date Type Department Care Team (Late st Contact Info) Description 05/22/2023 4:00 PM CDT Office Visit [facility] [address] [address] Monica Fung, ARMEN [address] [place] [address] Local skin infection (Primary Dx); Insect [...] on file 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 * Attachments The following attachments cannot be sent through Care Everywhere. * Cellulitis (Chemistry Instructor) (Jamaican) documented in this encounter Ordered Prescriptions Prescription [...] not ill-appearing. HENT: Head: Normocephalic. Mouth/Throat: Lips: [place]. Cardiovascular: Rate and Rhythm: Normal rate. Pulmonary: [...] encounter documented in this encounter Care Teams Shagger Relationship Specialty Start Date End Date Kirt Lindsay DO PCP - General Internal Medicine 02/02/21 Josué Del Valle MD PhD Medical Oncologist/Covered Buckle Assembler Medical Oncology 08/26/19 Tay Charlton MD Consulting Physician Gastroenterology 12/03/21 06/11/23 Halie Khan MD [address] [place] [address] Consulting Physician Pulmonary Disease 12/12/21 3 Ant Starks MD [address] [place] [address] Consulting Physician Transplant Hepatology 01/12/22 documented as of this encounter
--- OUTSIDE RECORDS SUMMARY | 2024-11-22 12:54 | XMS_ITS | Encounter Summary ---
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 Coverage Payor Plan Insurance Group Employer/Plan Group IDPA IDPA Payor Plan Address Payor Plan Phone Number Payor Plan Fax Number Effective Dates [address] [address] 05/18/2019 - None Entered [facility] [id number] Subscriber Name Subscriber Date Member ID BRI JONES 1965 [id number] Pharmacy: [id number] - [place] - [address] [place] [id number] [facility] - [place] - [address] [facility] [id number] [facility] ([place] - [facility] [place] - [address] [facility] [address] [place] [address] [place] Primary Care Provider: Gama Lindsay DO Prior to Admission: Functional Status: Independent with ADLs Primary Caregiver: Self Support System: Friends/neighbors Home Care Services: No Outpatient Services: No Durable Medical Equipment: Oxygen Oxygen Detail: 3 L continuous DME Name and Contact Number: [facility] Living Arrangements: Friends Type of Residence: [...] a week How often do you attend confucianism or advent services?: Never Do you belong to any clubs or organizations such as confucianism groups, unions, fraternal or athletic groups, or [...] DEVICE Final Result Performing Organization Address [facility] de Phone Number ZULEMA [address] [address] * POCT glucose (03/07/2024 7:53 AM CDT) Glucose, POC 123 70 - 199 mg/dL Glucose comment 1 Use This Result ZULEMA Blood 03/07/2024 7:53 AM CDT 03/07/2024 7:53 AM CDT Gianna Dey MD LAB POCT ORDERABLES - DEVICE Final Result Performing Organization Address [facility] de Phone Number ZULEMA [address] [address] * POCT glucose (03/07/2024 3:56 AM CDT) Glucose, POC 199 70 - 199 mg/dL Glucose comment 1 Use This Result [facility] Glucose comment 2 RN/MD Notified [facility] Blood 03/07/2024 3:56 AM CDT 03/07/2024 3:56 AM CDT Gianna Dey MD LAB POCT ORDERABLES - DEVICE Final Result Performing Organization Address [facility] de Phone Number ZULEMA [address] [address] * POCT glucose (03/06/2024 11:31 PM CDT) Glucose, POC 195 70 - 199 mg/dL Glucose comment 1 Use This Result [facility] Glucose comment 2 RN/MD Notified ZULEMA Blood 03/06/2024 11:3 1 PM CDT 03/06/2024 11:31 PM CDT Gianna Dey MD LAB POCT ORDERABLES - DEVICE Final Result Performing Organization Address [facility] Co de Phone Number ZULEMA [address] [address] * POCT glucose (03/06/2024 8:03 PM CDT) Glucose, POC 154 70 - 199 mg/dL Glucose comment 1 Use This Result [facility] Glucose comment 2 RN/MD Notified ZULEMA Blood 03/06/2024 8:03 PM CDT 03/06/2024 8:03 PM CDT Gianna Dey MD LAB POCT ORDERABLES - DEVICE Final Result Performing Organization Address [facility] Co de Phone Number ZULEMA [address] [place] [address] * POCT glucose (03/06/2024 5:49 PM CDT) Glucose, POC 175 70 - 199 mg/dL Glucose comment 1 Use This Result [facility] Blood 03/06/2024 5:49 PM CDT 03/06/2024 5:49 PM CDT us Gianna Dey MD LAB POCT ORDERABLES - DEVICE Final Result Performing Organization Address [facility] Co de Phone Number LESLIE[address] [place] [address] * (ABNORMAL) POCT glucose (03/06/2024 11:31 AM CDT) Glucose, POC 246(H) 70 - 199 mg/dL Glucose comment 1 Use This Result [facility] Glucose comment 2 RN/MD Notified ZULEMA Blood 03/06/2024 11:3 1 AM CDT 03/06/2024 11:31 AM CDT Gianna Dey MD LAB POCT ORDERABLES - DEVICE Final Result Performing Organization Address City/[facility]/ZIP Co de Phone Number [address] [place] [address] * POCT glucose (03/06/2024 8:15 AM CDT) [facility] Glucose, POC 194 70 - 199 mg/dL Glucose comment 1 Use This Result [facility] Glucose comment 2 RN/MD Notified [facility] Blood 03/06/2024 8:15 AM CDT 03/06/2024 8:15 AM CDT us Gianna Dey MD LAB POCT ORDERABLES - DEVICE Final Result [address] [address] * (ABNORMAL) CBC without differential (03/06/2024 5:05 AM CDT) [facility] WBC 13.2(H) 3.8 - 9.9 K/cumm Hgb 10.7(L) 13.0 - 17.5 g/dL [facility] Hct 31.9(L) 38.9 - 50.3 % [facility] Plt 237 150 - 400 K/cumm [facility] MPV 9.9 9.1 - 12.3 fL [facility] RBC 3.01(L) 4.30 - 5.80 M/cumm [facility] MCV 106.0(H) 81.3 - 96.4 fL [facility] MCH 35.5(H) 27.1 - 33.3 pg [facility] MCHC 33.5 32.3 - 35.7 g/dL [facility] RDW CV 17.2(H) 11.1 - 14.9 % [facility] RDW SD 67.2(H) 35.7 - 48.1 fL [facility] NRBC abs 0.12(H) 0.00 - 0.01 K/cumm [facility] Blood 03/06/2024 5:05 AM CDT 03/06/2024 5:16 AM CDT Saim Rivera DO LAB BLOOD ORDERABLES Final Resul t Performing Organization Address [facility] de Phone Number ZULEMA [address] [address] * (ABNORMAL) POCT glucose (03/06/2024 4:11 AM CDT) Glucose, POC 267(H) 70 - 199 mg/dL Glucose comment 1 Use This Result [facility] Blood 03/06/2024 4:11 AM CDT 03/06/2024 4:11 AM CDT Gianna Dey MD LAB POCT ORDERABLES - DEVICE Final Result Performing Organization Address [facility] de Phone Number LESLIE[address] [address] * (ABNORMAL) POCT glucose (03/06/2024 1:41 AM CDT) [facility] Glucose, POC 286(H) 70 - 199 mg/dL Glucose comment 1 Use This Result [facility] Blood 03/06/2024 1:41 AM CDT 03/06/2024 1:41 AM CDT Gianna Dey MD LAB POCT ORDERABLES - DEVICE Final Result Performing Organization Address [facility] de Phone Number LESLIE[address] [address] * eGFR (03/06/2024 12:16 AM CDT) eGFR [...] DO LAB BLOOD ORDERABLES Final Resul t [facility] [address] [facility] Department [place] [address] * Basic metabolic panel (03/06/2024 12:16 AM CDT) Sodium 136 135 - 145 mmol/L Potassium, pl 4.7 3.3 - 4.9 mmol/L [facility] Chloride 101 97 - 110 mmol/L [facility] CO2 27 22 - 32 mmol/L [facility] Anion gap 8 2 - 15 mmol/L [facility] BUN 23 6 - 25 mg/dL [facility] Creatinine 0.94 0.80 - 1.30 mg/dL [facility] Glucose 182 70 - 199 mg/dL [facility] Comment: Interpretive Data Fasting glucose [...] Final Resul t Performing Organization Address [facility] Co de Phone Number [address] [address] * (ABNORMAL) POCT glucose (03/05/2024 11:49 PM CDT) Glucose, POC 212(H) 70 - 199 mg/dL Glucose comment 1 Use This Result [facility] Blood 03/05/2024 11:4 9 PM CDT 03/05/2024 11:49 PM CDT Gianna Dey MD LAB POCT ORDERABLES - DEVICE Final Result Performing Organization Address [facility] Co de Phone Number [address] [address] * (ABNORMAL) POCT glucose (03/05/2024 8:23 PM CDT) Glucose, POC 222(H) 70 - 199 mg/dL Blood 03/05/2024 8:23 PM CDT 03/05/2024 8:23 PM CDT Gianna Dey MD LAB POCT ORDERABLES - DEVICE Final Result Performing Organization Address City/[facility] Co de Phone Number [address] [address] * POCT glucose (03/05/2024 4:25 PM CDT) Glucose, POC 185 70 - 199 mg/dL Glucose comment 1 Use This Result [facility] Glucose comment 2 RN/MD Notified [facility] Blood 03/05/2024 4:25 PM CDT 03/05/2024 4:25 PM CDT Gianna Dey MD LAB POCT ORDERABLES - DEVICE Final Result Performing Organization Address [facility] Co de Phone Number [address] [place] [address] * POCT glucose (03/05/2024 11:10 AM CDT) [facility] Glucose, POC 83 70 - 199 mg/dL Blood 03/05/2024 11:1 0 AM CDT 03/05/2024 11:10 AM CDT Gianna Dey MD LAB POCT ORDERABLES - DEVICE Final Result Performing Organization Address [facility] de Phone Number [address] [address] * (ABNORMAL) Manual Differential (03/05/2024 7:49 AM CDT) [facility] Differential Manual Cells Counted 100 [facility] Neutrophil abs 10.2(H) 1.5 - 6.5 K/cumm [facility] Lymphocyte abs 2.4 0.8 - 3.3 K/cumm [facility] Monocyte abs 1.3(H) 0.2 - 0.8 K/cumm [facility] Eosinophil abs 0.1 0.0 - 0.5 K/cumm [facility] Neutrophil pct 73.0 % [facility] Comment: Interpretive Data Percent cell count reference ranges are not reported, since discordance with absolute values may lead to misinterpretation of CBC data. Current Interpretive Data was last revised on 2018. Lymphocyte pct 16.0 % [facility] Comment: Interpretive Data Percent cell count reference ranges are not reported, since discordance with absolute values may lead to misinterpretation of CBC data. Current Interpretive Data was last revised on 2018. Monocyte pct 9.0 % [facility] Comment: Interpretive Data Percent cell count reference ranges are not reported, since discordance with absolute values may lead to misinterpretation of CBC data. Current Interpretive Data was last revised on 2018. Eosinophil pct 1.0 % [facility] Comment: Interpretive Data Percent cell count reference ranges are not reported, since discordance with absolute values may lead to misinterpretation of CBC data. Current Interpretive Data was last revised on 2018. Variant lymph pct 1.0(H) 0.0 - 0.0 % [facility] RBC morphology Present(A) [facility] Polychromasia 3-7/HPF(A) [facility] Poikilocytosis Moderate(A) [facility] Macrocytes 8-15/HPF(A) [facility] Elliptocytes 3-7/HPF(A) [facility] Platelet estimate Automated Count Confirmed [facility] Blood 03/05/2024 7:49 AM CDT 03/05/2024 8:30 AM CDT us Osmar Orta MD LAB BLOOD ORDERABLES Final R esult ZULEMA [address] [facility] Department [place] [address] * eGFR (03/05/2024 7:49 AM [...] MD LAB BLOOD ORDERABLES Final R esult [facility] [address] [facility] Department of Laboratories [place], [place] [id number] * (ABNORMAL) Comprehensive metabolic panel (03/05/2024 7:49 AM CDT) Sodium 136 135 - 145 mmol/L Potassium, pl 4.3 3.3 - 4.9 mmol/L [facility] Chloride 101 97 - 110 mmol/L [facility] CO2 27 22 - 32 mmol/L [facility] Anion gap 8 2 - 15 mmol/L [facility] BUN 25 6 - 25 mg/dL [facility] Creatinine 0.98 0.80 - 1.30 mg/dL [facility] Glucose 93 70 - 199 mg/dL [facility] Comment: Interpretive Data Fasting glucose [...] 2022. Calcium 8.9 8.5 - 10.3 mg/dL [facility] Bilirubin, total 0.3 0.1 - 1.2 mg/dL [facility] Protein, pl 6.9 6.5 - 8.5 g/dL [facility] Albumin 3.3(L) 3.5 - 5.0 g/dL [facility] Alk phos 148(H) 40 - 130 Units/L [facility] ALT 36 7 - 55 Units/L [facility] AST 64(H) 10 - 50 Units/L [facility] Blood 03/05/2024 7:49 AM CDT 03/05/2024 8:30 AM CDT us Osmar Orta MD LAB BLOOD ORDERABLES Final R esult [facility] [address] [facility] Department [place] [address] * (ABNORMAL) CBC with auto differential (03/05/2024 7:49 AM CDT) WBC 14.0(H) 3.8 - 9.9 K/cumm Hgb 11.8(L) 13.0 - 17.5 g/dL [facility] Hct 35.7(L) 38.9 - 50.3 % [facility] Plt 281 150 - 400 K/cumm [facility] MPV 9.9 9.1 - 12.3 fL [facility] RBC 3.31(L) 4.30 - 5.80 M/cumm [facility] MCV 107.9(H) 81.3 - 96.4 fL [facility] MCH 35.6(H) 27.1 - 33.3 pg [facility] MCHC 33.1 32.3 - 35.7 g/dL [facility] RDW CV 17.7(H) 11.1 - 14.9 % [facility] RDW SD 69.6(H) 35.7 - 48.1 fL [facility] NRBC abs 0.26(H) 0.00 - 0.01 K/cumm [facility] Blood 03/05/2024 7:49 AM CDT 03/05/2024 8:30 AM CDT us Osmar Orta MD LAB BLOOD ORDERABLES Final R esult Performing Organization Address City/[facility] Co de Phone Number ZULEMA [address] [place] [address] * POCT glucose (03/05/2024 7:37 AM CDT) Glucose, POC 110 70 - 199 mg/dL Blood 03/05/2024 7:37 AM CDT 03/05/2024 7:37 AM CDT Gianna Dey MD LAB POCT ORDERABLES - DEVICE Final Result Performing Organization Address [facility] de Phone Number [address] [place] [address] * POCT glucose (03/05/2024 12:36 AM CDT) Glucose, POC 147 70 - 199 mg/dL Glucose comment 1 Use This Result [facility] Glucose comment 2 RN/MD Notified [facility] Blood 03/05/2024 12:3 6 AM CDT 03/05/2024 12:36 AM CDT Gianna Dey MD LAB POCT ORDERABLES - DEVICE Final Result Performing Organization Address [facility] Co de Phone Number [address] [place] [address] * (ABNORMAL) POCT glucose (03/04/2024 8:50 PM CDT) Glucose, POC 231(H) 70 - 199 mg/dL Blood 03/04/2024 8:50 PM CDT 03/04/2024 8:50 PM CDT Gianna Dey MD LAB POCT ORDERABLES - DEVICE Final Result Performing Organization Address [facility] de Phone Number LESLIE[address] [address] * POCT glucose (03/04/2024 4:49 PM CDT) Glucose, POC 173 70 - 199 mg/dL Glucose comment 1 Use This Result [facility] Blood 03/04/2024 4:49 PM CDT 03/04/2024 4:49 PM CDT Gianna Dey MD LAB POCT ORDERABLES - DEVICE Final Result Performing Organization Address [facility] de Phone Number [address] [address] * HIV 1/2 Antibody plus p24 Antigen Blood (03/04/2024 12:58 PM CDT) [facility] HIV 1/2 ab + p24 ag Nonreactive [...] RDERABLES Final Result Performing Organization Address [facility] Co de Phone Number [address] [address] * (ABNORMAL) POCT glucose (03/04/2024 11:56 AM CDT) Glucose, POC 232(H) 70 - 199 mg/dL Glucose comment 1 Use This Result [facility] Blood 03/04/2024 11:5 6 AM CDT 03/04/2024 11:56 AM CDT us Gianna Dey MD LAB POCT ORDERABLES - DEVICE Final Result Performing Organization Address City/[facility] Co de Phone Number ZULEMA [facility] [place] [address] * POCT glucose (03/04/2024 7:42 AM CDT) Glucose, POC 117 70 - 199 mg/dL Glucose comment 1 Use This Result ZULEMA Blood 03/04/2024 7:42 AM CDT 03/04/2024 7:42 AM CDT Gianna Dey MD LAB POCT ORDERABLES - DEVICE Final Result Performing Organization Address [facility] de Phone Number ZULEMA [facility] [place] [address] * eGFR (03/04/2024 5:11 AM CDT) eGFR [...] MD LAB BLOOD ORDERABLES Final R esult [facility] [address] [facility] Department [place] [address] * (ABNORMAL) Manual Differential (03/04/2024 5:11 AM CDT) Differential Manual Cells Counted 100 [facility] Neutrophil abs 10.0(H) 1.5 - 6.5 K/cumm [facility] Imm gran abs 0.2(H) 0.0 - 0.1 K/cumm [facility] Lymphocyte abs 6.3(H) 0.8 - 3.3 K/cumm [facility] Monocyte abs 0.3 0.2 - 0.8 K/cumm [facility] Basophil abs 0.2(H) 0.0 - 0.1 K/cumm [facility] Neutrophil pct 59.0 % [facility] Comment: Interpretive Data Percent cell count reference ranges are not reported, since discordance with absolute values may lead to misinterpretation of CBC data. Current Interpretive Data was last revised on 2018. Lymphocyte pct 37.0 % [facility] Comment: Interpretive Data Percent cell count reference ranges are not reported, since discordance with absolute values may lead to misinterpretation of CBC data. Current Interpretive Data was last revised on 2018. Monocyte pct 2.0 % [facility] Comment: Interpretive Data Percent cell count reference ranges are not reported, since discordance with absolute values may lead to misinterpretation of CBC data. Current Interpretive Data was last revised on 2018. Basophil pct 1.0 % [facility] Comment: Interpretive Data Percent cell count reference ranges are not reported, since discordance with absolute values may lead to misinterpretation of CBC data. Current Interpretive Data was last revised on 2018. Metamyelocyte pct 1.0 % [facility] Anisocytosis Marked(A) [facility] Poikilocytosis Moderate(A) [facility] Macrocytes > 15/HPF(A) [facility] Elliptocytes 3-7/HPF(A) [facility] Target cells 3-7/HPF(A) [facility] Platelet estimate Automated Count Confirmed [facility] Blood 03/04/2024 5:11 AM CDT 03/04/2024 5:26 AM CDT us Osmar Orta MD LAB BLOOD ORDERABLES Final [facility] [address] [facility] Department [place] [address] * (ABNORMAL) CBC with auto differential (03/04/2024 5:11 AM CDT) WBC 17.0(H) 3.8 - 9.9 K/cumm Hgb 12.0(L) 13.0 - 17.5 g/dL [facility] Hct 35.6(L) 38.9 - 50.3 % [facility] Plt 321 150 - 400 K/cumm [facility] MPV 9.6 9.1 - 12.3 fL [facility] RBC 3.35(L) 4.30 - 5.80 M/cumm [facility] MCV 106.3(H) 81.3 - 96.4 fL [facility] MCH 35.8(H) 27.1 - 33.3 pg [facility] MCHC 33.7 32.3 - 35.7 g/dL [facility] RDW CV 17.7(H) 11.1 - 14.9 % [facility] RDW SD 68.4(H) 35.7 - 48.1 fL [facility] NRBC abs 0.51(H) 0.00 - 0.01 K/cumm [facility] Blood 03/04/2024 5:11 AM CDT 03/04/2024 5:26 AM CDT us Osmar Orta MD LAB BLOOD ORDERABLES Edited Result - Final [facility] [address] [facility] Department [place] [address] * (ABNORMAL) Comprehensive metabolic panel (03/04/2024 5:11 AM CDT) Sodium 136 135 - 145 mmol/L Potassium, pl 5.4(H) 3.3 - 4.9 mmol/L [facility] Comment:Hemolyzed; Potassium value may be falsely elevated by as much as 1.0 mmol/L. Suggest redraw and reanalysis. Chloride 98 97 - 110 mmol/L [facility] CO2 29 22 - 32 mmol/L [facility] Anion gap 9 2 - 15 mmol/L [facility] BUN 23 6 - 25 mg/dL [facility] Creatinine 0.96 0.80 - 1.30 mg/dL [facility] Glucose 145 70 - 199 mg/dL [facility] Comment: Interpretive Data Fasting glucose [...] 2022. Calcium 9.2 8.5 - 10.3 mg/dL [facility] Bilirubin, total 0.2 0.1 - 1.2 mg/dL [facility] Protein, pl 7.4 6.5 - 8.5 g/dL [facility] Albumin 3.6 3.5 - 5.0 g/dL [facility] Alk phos 132(H) 40 - 130 Units/L [facility] ALT 26 7 - 55 Units/L [facility] AST 58(H) 10 - 50 Units/L [facility] Comment:Hemolyzed; result ma y be falsely elevated Blood 03/04/2024 5:11 AM CDT 03/04/2024 5:26 AM CDT us Osmar Orta MD LAB BLOOD ORDERABLES Final R esult Performing Organization Address City/[facility] Co de Phone Number ZULEMA [address] [facility] [place] [address] * eGFR (03/04/2024 12:05 AM CDT) eGFR [...] Final Resul t Performing Organization Address [facility] Co de Phone Number ZULEMA [address] [facility] [place] [address] * (ABNORMAL) Basic metabolic panel (03/04/2024 12:05 AM CDT) Sodium 136 135 - 145 mmol/L Potassium, pl 5.1(H) 3.3 - 4.9 mmol/L [facility] Comment:Hemolyzed; Potassium value may be falsely elevated by as much as 1.0 mmol/L. Suggest redraw and reanalysis. Chloride 98 97 - 110 mmol/L [facility] CO2 27 22 - 32 mmol/L [facility] Anion gap 11 2 - 15 mmol/L [facility] BUN 25 6 - 25 mg/dL [facility] Creatinine 1.12 0.80 - 1.30 mg/dL [facility] Glucose 158 70 - 199 mg/dL [facility] Comment: Delta - Results Reviewed [...] 2022. Calcium 9.2 8.5 - 10.3 mg/dL [facility] Blood 03/04/2024 12:0 5 AM CDT 03/04/2024 12:33 AM CDT us Saim Rivera DO LAB BLOOD ORDERABLES Final Resul t [facility] [address] [facility] Department [place] [address] * POCT glucose (03/03/2024 11:07 PM CDT) Glucose, POC 154 70 - 199 mg/dL Glucose comment 1 Use This Result [facility] Glucose comment 2 RN/MD Notified [facility] Blood 03/03/2024 11:0 7 PM CDT 03/03/2024 11:07 PM CDT Gianna Dey MD LAB POCT ORDERABLES - DEVICE Final Result Performing Organization Address City/[facility] Co de Phone Number ZULEMA [address] [address] * (ABNORMAL) POCT glucose (03/03/2024 7:06 PM CDT) Glucose, POC 225(H) 70 - 199 mg/dL Blood 03/03/2024 7:06 PM CDT 03/03/2024 7:06 PM CDT Gianna Dey MD [facility] POCT ORDERABLES - DEVICE Final Result Performing Organization Address [facility] de Phone Number [address] [address] * Urinalysis reflex to microscopic (03/03/2024 6:14 PM CDT) Color, ur Straw Yellow Clarity, ur Clear Clear [facility] Specific gravity, ur 1.008 1.003 - 1.030 [facility] pH, urine 7.0 [facility] Comment: Interpretive Data ? Urine pH is affected by diet, medications, systemic acid-base disturbances, and renal tubular function. ??pH may affect urinary stone formation. ??For example, urine pH below 6.0 may help reduce the tendency for calcium phosphate stones and pH greater than 6.0 may reduce the tendency for uric acid stone formation. Source: [facility] Current Interpretive Data was last revised on 2017 Protein, ur ql Negative Negative [facility] Glucose, ur ql Negative Negative [facility] Ketones, ur Negative Negative [facility] Bilirubin, ur Negative Negative [facility] Blood, ur Negative Negative [facility] Urobilinogen, ur <2.0 <2.0 mg/dL [facility] Nitrite, ur Negative Negative [facility] Leukocyte esterase, ur Negative Negative [facility] UA reflex comment Reflex conditions for microscopic UA not met. ZULEMA Urine 03/03/2024 6:14 PM CDT 03/03/2024 6:38 PM CDT us Osmar Orta MD LAB URINE ORDERABLES Final R esult ZULEMA [address] [address] * POCT glucose (03/03/2024 5:05 PM CDT) Glucose, POC 183 70 - 199 mg/dL Glucose comment 1 Use This Result [facility] Blood 03/03/2024 5:05 PM CDT 03/03/2024 5:05 PM CDT us Gianna Dey MD LAB POCT ORDERABLES - DEVICE Final Result Performing Organization Address City/[facility]/ZIP Co de Phone Number [address] [address] * Blood culture Blood (03/03/2024 4:57 PM CDT) Report Final Report: No growth Comment:Testing performed by : [facility], [address] [facility], [place]., [address] Blood 03/03/2024 4:57 PM CDT 03/03/2024 7:51 PM CDT Narrative [facility] - 03/08/2024 7:00 AM CDT [...] organism identification may be performed using the LY.comigene Gram-Positive Blood Culture Assay. This assay detects microbial DNA in positive blood culture broth via hybridization of target DNA to capture oligonucleotides on a microarray. This assay has been cleared by the [place] Food and Drug Administration and its performance characteristics have been verified by the [facility] Microbiology Laboratory. 5. ?For questions about this culture, contact the Microbiology Laboratory at [phone]. Interpretive data was last revised on 2020. us Osmar Orta MD LAB MICROBIOLOGY - GENERAL O RDERABLES Final Result ZULEMA [address] [facility] Department [place] [address] * Blood culture Blood Arm, left (03/03/2024 4:11 PM CDT) Report Final Report: No growth Comment:Testing performed by : [facility], [address] [facility] [place] [address] Blood (Arm, left) 03/03/2024 4:11 PM CDT [...] performance characteristics have been verified by the [facility] Microbiology Laboratory. 5. ?For questions about this culture, contact the Microbiology Laboratory at [phone]. Interpretive data was last revised on 2020. Osmar Orta MD LAB MICROBIOLOGY - GENERAL O RDERABLES Final Result Performing Organization Address [facility] Co de Phone Number LESLIE[address] [place] [address] * MRSA Only (Staphylococcus aureus) PCR Nasal (03/03/2024 11:56 AM CDT) PCR Scrn, Methicillin resistant Staphylococcus aureus (MRSA) Not Detected Not Detected Comment: Interpretive Data Testing performed using Nucleic Acid Amplification with the [employer] Xpert MRSA NxG Assay. This assay detects target DNA from mecA, mecC and the SCCmec insertion site of Staphylococcus aureus using Real-Time PCR and has been cleared by the FDA. Performance characteristics have been verified by the [facility] Laboratory. Current Interpretive Data was last revised on 2023 Nasal 03/03/2024 11:5 6 AM CDT 03/03/2024 12:24 PM CDT Osmar Orta MD LAB MICROBIOLOGY - GENERAL O RDERABLES Final Result Performing Organization Address [facility] Co de Phone Number LESLIE[address] [employer] [place], [place] [id number] * POCT glucose (03/03/2024 11:55 AM CDT) Glucose, POC 169 70 - 199 mg/dL Glucose comment 1 Use This Result ZULEMA Blood 03/03/2024 11:5 5 AM CDT 03/03/2024 11:55 AM CDT Gianna Dey MD LAB POCT ORDERABLES - DEVICE Final Result Performing Organization Address [facility] de Phone Number [address] [place] [address] * POCT glucose (03/03/2024 7:38 AM CDT) Glucose, POC 172 70 - 199 mg/dL Glucose comment 1 Use This Result [facility] Blood 03/03/2024 7:38 AM CDT 03/03/2024 7:38 AM CDT Gianna Dey MD LAB POCT ORDERABLES - DEVICE Final Result Performing Organization Address [facility] de Phone Number [address] [address] * POCT glucose (03/03/2024 5:53 AM CDT) Glucose, POC 96 70 - 199 mg/dL Glucose comment 1 Use This Result ZULEMA Blood 03/03/2024 5:53 AM CDT 03/03/2024 5:53 AM CDT Gianna Dey MD LAB POCT ORDERABLES - DEVICE Final Result Performing Organization Address [facility] de Phone Number [address] [place] [address] * POCT glucose (03/03/2024 4:30 AM CDT) Glucose, POC 112 70 - 199 mg/dL Glucose comment 1 Use This Result [facility] Blood 03/03/2024 4:30 AM CDT 03/03/2024 4:30 AM CDT us Gianna Dey MD LAB POCT ORDERABLES - DEVICE Final Result Performing Organization Address [facility] de Phone Number ZULEMA [address] [facility] [place] [address] * eGFR (03/03/2024 4:23 AM CDT) eGFR [...] ORDERABLES Final R esult Performing Organization Address [facility] de Phone Number ZULEMA [facility] [facility] [place] [address] * (ABNORMAL) Manual Differential (03/03/2024 4:23 AM CDT) Pathologist [facility] Differential Manual Cells Counted 100 [facility] Neutrophil abs 11.0(H) 1.5 - 6.5 K/cumm [facility] Lymphocyte abs 8.1(H) 0.8 - 3.3 K/cumm [facility] Monocyte abs 1.7(H) 0.2 - 0.8 K/cumm [facility] Neutrophil pct 53.0 % [facility] Comment: Interpretive Data Percent cell count reference ranges are not reported, since discordance with absolute values may lead to misinterpretation of CBC data. Current Interpretive Data was last revised on 2018. Lymphocyte pct 39.0 % [facility] Comment: Interpretive Data Percent cell count reference ranges are not reported, since discordance with absolute values may lead to misinterpretation of CBC data. Current Interpretive Data was last revised on 2018. Monocyte pct 8.0 % [facility] Comment: Interpretive Data Percent cell count reference ranges are not reported, since discordance with absolute values may lead to misinterpretation of CBC data. Current Interpretive Data was last revised on 2018. RBC morphology Consistent with RBC Indicies [facility] Platelet estimate Automated Count Confirmed [facility] Blood 03/03/2024 4:23 AM CDT 03/03/2024 5:21 AM CDT us Osmar Orta MD LAB BLOOD ORDERABLES Final R esult [facility] [address] [facility] Department [place] [address] * (ABNORMAL) Comprehensive metabolic panel (03/03/2024 4:23 AM CDT) Pathologist [facility] Sodium 138 135 - 145 mmol/L Potassium, pl 4.5 3.3 - 4.9 mmol/L ZULEMA Comment:Hemolyzed; Potassium value may be falsely elevated by as much as 1.0 mmol/L. Suggest redraw and reanalysis. Chloride 102 97 - 110 mmol/L ZULEMA CO2 25 22 - 32 mmol/L [facility] Anion gap 11 2 - 15 mmol/L [facility] BUN 26(H) 6 - 25 mg/dL [facility] Creatinine 0.82 0.80 - 1.30 mg/dL [facility] Glucose 53(C) 70 - 199 mg/dL [facility] Comment: Delta - Results Reviewed ??Critical Result called to and read back by [email or web address], DATE: 2024-03-03 06:18:02 BY: [email or web address] Interpretive Data Fasting glucose >/= 126 mg/dl [...] 2022. Calcium 9.0 8.5 - 10.3 mg/dL [facility] Bilirubin, total 0.2 0.1 - 1.2 mg/dL [facility] Protein, pl 6.7 6.5 - 8.5 g/dL [facility] Albumin 3.6 3.5 - 5.0 g/dL [facility] Alk phos 122 40 - 130 Units/L [facility] ALT 18 7 - 55 Units/L [facility] AST 56(H) 10 - 50 Units/L [facility] Comment:Hemolyzed; result ma y be falsely elevated Blood 03/03/2024 4:23 AM CDT 03/03/2024 5:21 AM CDT us Osmar Orta MD LAB BLOOD ORDERABLES Final R esult [facility] [address] [facility] Department [place] [address] * (ABNORMAL) CBC with auto differential (03/03/2024 4:23 AM CDT) WBC 20.8(H) 3.8 - 9.9 K/cumm Hgb 11.6(L) 13.0 - 17.5 g/dL [facility] Hct 36.1(L) 38.9 - 50.3 % [facility] Plt 324 150 - 400 K/cumm [facility] MPV 9.9 9.1 - 12.3 fL [facility] RBC 3.31(L) 4.30 - 5.80 M/cumm [facility] MCV 109.1(H) 81.3 - 96.4 fL [facility] MCH 35.0(H) 27.1 - 33.3 pg [facility] MCHC 32.1(L) 32.3 - 35.7 g/dL [facility] RDW CV 17.6(H) 11.1 - 14.9 % [facility] RDW SD 70.2(H) 35.7 - 48.1 fL [facility] NRBC abs 0.63(H) 0.00 - 0.01 K/cumm [facility] Blood 03/03/2024 4:23 AM CDT 03/03/2024 5:21 AM CDT Osmar Orta MD LAB BLOOD ORDERABLES Final R esult Performing Organization Address City/[facility]/ZIP Co de Phone Number [address] [place] [address] * POCT glucose (03/03/2024 12:54 AM CDT) [facility] Glucose, POC 157 70 - 199 mg/dL Glucose comment 1 Use This Result [facility] Blood 03/03/2024 12:5 4 AM CDT 03/03/2024 12:54 AM CDT Gianna Dey MD LAB POCT ORDERABLES - DEVICE Final Result Performing Organization Address City/[facility]/ZIP Co de Phone Number [address] [place] [address] * POCT glucose (03/02/2024 7:14 PM CDT) Glucose, POC 170 70 - 199 mg/dL Glucose comment 1 Use This Result ZULEMA CHAVEZ Blood 03/02/2024 7:14 PM CDT 03/02/2024 7:14 PM CDT Gianna Dey MD LAB POCT ORDERABLES - DEVICE Final Result ZULEMA CHAVEZ [address] [facility] Department [place] [address] * CT Chest WO Contrast (03/02/2024 6:51 [...] findings. FINDINGS: LUNGS: ??Coarse opacity in the jjkax-sqpzacj-krdz-upper lungs are new since 04/03/2022, superimposed on [...] ??Unremarkable. ?? IMPRESSION: Coarse opacities in the vkgod-zbrnihl-emje-upper lungs are new since 04/03/2022, favored to [...] D: ??03/02/2024 7:43 PM T: Report ID: [id number] Reading Location: ??[id number] Procedure Note Kaushik Nur MD - 03/02/2024 [...] findings. FINDINGS: LUNGS: Coarse opacity in the jjowh-gyttxji-shzc-upper lungs are new since 04/03/2022, superimposed on [...] WALL: Unremarkable. IMPRESSION: Coarse opacities in the gnveb-iqrjyau-mdjt-upper lungs are new since 04/03/2022, favored to [...] Kaushik Nur M.D. AR T: Report ID: [id number] Reading Location: [id number] us Osmar Orta MD IMG CT PROCEDURES Final Resu lt * (ABNORMAL) POCT glucose (03/02/2024 4:56 PM CDT) Glucose, POC 308(H) 70 - 199 mg/dL Glucose comment 1 Use This Result ZULEMA Glucose comment 2 RN/MD Notified ZULEMA CHAVEZ Blood 03/02/2024 4:56 PM CDT 03/02/2024 4:56 PM CDT Gianna Dey MD LAB POCT ORDERABLES - DEVICE Final Result Performing Organization Address [facility] de Phone Number ZULEMA [address] [address] * (ABNORMAL) POCT glucose (03/02/2024 12:48 PM CDT) Glucose, POC 335(H) 70 - 199 mg/dL Glucose comment 1 Use This Result [facility] Glucose comment 2 RN/MD Notified [facility] Blood 03/02/2024 12:4 8 PM CDT 03/02/2024 12:48 PM CDT Gianna Dey MD LAB POCT ORDERABLES - DEVICE Final Result Performing Organization Address [facility] de Phone Number ZULEMA [address] [address] * POCT glucose (03/02/2024 8:07 AM CDT) Glucose, POC 121 70 - 199 mg/dL Glucose comment 1 Use This Result [facility] Glucose comment 2 RN/MD Notified [facility] Blood 03/02/2024 8:07 AM CDT 03/02/2024 8:07 AM CDT Gianna Dey MD LAB POCT ORDERABLES - DEVICE Final Result Performing Organization Address [facility] de Phone Number [address] [address] * (ABNORMAL) Manual Differential (03/02/2024 5:24 AM CDT) Differential Manual Cells Counted 100 [facility] Neutrophil abs 8.3(H) 1.5 - 6.5 K/cumm [facility] Lymphocyte abs 7.6(H) 0.8 - 3.3 K/cumm [facility] Monocyte abs 0.3 0.2 - 0.8 K/cumm [facility] Neutrophil pct 51.0 % [facility] Comment: Interpretive Data Percent cell count reference ranges are not reported, since discordance with absolute values may lead to misinterpretation of CBC data. Current Interpretive Data was last revised on 2018. Lymphocyte pct 47.0 % [facility] Comment: Interpretive Data Percent cell count reference ranges are not reported, since discordance with absolute values may lead to misinterpretation of CBC data. Current Interpretive Data was last revised on 2018. Monocyte pct 2.0 % [facility] Comment: Interpretive Data Percent cell count reference ranges are not reported, since discordance with absolute values may lead to misinterpretation of CBC data. Current Interpretive Data was last revised on 2018. RBC morphology Present(A) [facility] Polychromasia 3-7/HPF(A) [facility] Hypochromasia 3-7/HPF(A) [facility] Anisocytosis Slight(A) [facility] Macrocytes 3-7/HPF(A) [facility] Teardrop cells 3-7/HPF(A) [facility] [place] bodies Present(A) [facility] Platelet estimate Adequate [facility] Blood 03/02/2024 5:24 AM CDT 03/02/2024 5:48 AM CDT us Saim Rivera DO LAB BLOOD ORDERABLES Final Resul t [facility] [address] [facility] Department [place] [address] * (ABNORMAL) CBC without differential (03/02/2024 5:24 AM CDT) WBC 16.2(H) 3.8 - 9.9 K/cumm Hgb 11.4(L) 13.0 - 17.5 g/dL [facility] Hct 35.2(L) 38.9 - 50.3 % [facility] Plt 346 150 - 400 K/cumm [facility] MPV 9.8 9.1 - 12.3 fL [facility] RBC 3.24(L) 4.30 - 5.80 M/cumm ZULEMA MCV 108.6(H) 81.3 - 96.4 fL [facility] MCH 35.2(H) 27.1 - 33.3 pg ZULEMA MCHC 32.4 32.3 - 35.7 g/dL ZULEMA RDW CV 17.2(H) 11.1 - 14.9 % ZULEMA RDW SD 68.5(H) 35.7 - 48.1 fL [facility] NRBC abs 0.37(H) 0.00 - 0.01 K/cumm ZULEMA Blood 03/02/2024 5:24 AM CDT 03/02/2024 5:48 AM CDT us Diana Rivera DO LAB BLOOD ORDERABLES Edited Resu lt - Final ZULEMA [address] [facility] Department of Laboratories [place], [place] [id number] * eGFR (03/01/2024 11:38 PM CDT) eGFR [...] 8 PM CDT 03/01/2024 11:49 PM CDT [facility] Rivera DO LAB BLOOD ORDERABLES Final Resul t Performing Organization Address [facility] de Phone Number [facility] [address] [facility] Department [place] [address] * Basic metabolic panel (03/01/2024 11:38 PM CDT) Pathologist [facility] Sodium 137 135 - 145 mmol/L Potassium, pl 4.2 3.3 - 4.9 mmol/L [facility] Chloride 101 97 - 110 mmol/L [facility] CO2 29 22 - 32 mmol/L [facility] Anion gap 7 2 - 15 mmol/L [facility] BUN 24 6 - 25 mg/dL [facility] Creatinine 0.82 0.80 - 1.30 mg/dL [facility] Glucose 159 70 - 199 mg/dL [facility] Comment: Interpretive Data Fasting glucose [...] 2022. Calcium 8.6 8.5 - 10.3 mg/dL [facility] Blood 03/01/2024 11:3 8 PM CDT 03/01/2024 11:49 PM CDT [facility] Rivera DO LAB BLOOD ORDERABLES Final Resul t Performing Organization Address City/[facility]/ZIP Co de Phone Number ZULEMA [address] [place] [address] * POCT glucose (03/01/2024 10:22 PM CDT) Glucose, POC 150 70 - 199 mg/dL Blood 03/01/2024 10:2 2 PM CDT 03/01/2024 10:22 PM CDT Gianna Dey MD LAB POCT ORDERABLES - DEVICE Final Result Performing Organization Address [facility] de Phone Number [address] [address] * (ABNORMAL) POCT glucose (03/01/2024 7:23 PM CDT) Glucose, POC 332(H) 70 - 199 mg/dL Glucose comment 1 Use This Result ZULEMA Blood 03/01/2024 7:23 PM CDT 03/01/2024 7:23 PM CDT Gianna Dey MD LAB POCT ORDERABLES - DEVICE Final Result Performing Organization Address [facility] de Phone Number [address] [place] [address] * (ABNORMAL) POCT glucose (03/01/2024 4:53 PM CDT) Glucose, POC 344(H) 70 - 199 mg/dL Glucose comment 1 Use This Result [facility] Glucose comment 2 RN/MD Notified ZULEMA Blood 03/01/2024 4:53 PM CDT 03/01/2024 4:53 PM CDT Gianna Dey MD LAB POCT ORDERABLES - DEVICE Final Result Performing Organization Address [facility] Co de Phone Number [address] [place] [address] * POCT glucose (03/01/2024 11:52 AM CDT) Glucose, POC 178 70 - 199 mg/dL Glucose comment 1 Use This Result [facility] Glucose comment 2 RN/ Notified [facility] Blood 03/01/2024 11:5 2 AM CDT 03/01/2024 11:52 AM CDT Gianna Dey MD LAB POCT ORDERABLES - DEVICE Final Result Performing Organization Address [facility] Co de Phone Number [address] [place] [address] * (ABNORMAL) POCT glucose (03/01/2024 8:02 AM CDT) Glucose, POC 226(H) 70 - 199 mg/dL Glucose comment 1 Use This Result [facility] Glucose comment 2 RN/ Notified ZULEMA Blood 03/01/2024 8:02 AM CDT 03/01/2024 8:02 AM CDT Gianna Dey MD LAB POCT ORDERABLES - DEVICE Final Result Performing Organization Address [facility] Co de Phone Number [address] [place] [address] * (ABNORMAL) POCT glucose (03/01/2024 3:46 AM CDT) Glucose, POC 202(H) 70 - 199 mg/dL Glucose comment 1 Use This Result [facility] Glucose comment 2 RN/ Notified ZULEMA Blood 03/01/2024 3:46 AM CDT 03/01/2024 3:46 AM CDT Diana Rivera DO LAB POCT ORDERABLES - DEVICE Fin al Result Performing Organization Address City/[facility]/ZIP [place] [address] [place] [address] * POCT glucose (03/01/2024 12:02 AM CDT) Glucose, POC 173 70 - 199 mg/dL Blood 03/01/2024 12:0 2 AM CDT 03/01/2024 12:02 AM CDT Saim Rivera DO LAB POCT ORDERABLES - DEVICE Fin al Result ZULEMA [address] [address] * POCT glucose (02/29/2024 7:30 PM CDT) Glucose, POC 164 70 - 199 mg/dL Glucose comment 1 Use This Result [facility] Blood 02/29/2024 7:30 PM CDT 02/29/2024 7:30 PM CDT Saim Rivera DO LAB POCT ORDERABLES - DEVICE Fin al Result Performing Organization Address City/[facility]/ZIP Co de Phone Number ZULEMA [address] [place] [address] * (ABNORMAL) POCT glucose (02/29/2024 6:12 PM CDT) Glucose, POC 254(H) 70 - 199 mg/dL Blood 02/29/2024 6:12 PM CDT 02/29/2024 6:12 PM CDT Saim Rivera DO LAB POCT ORDERABLES - DEVICE Fin al Result Performing Organization Address City/[facility]/ZIP Co de Phone Number LESLIE[address] [address] * (ABNORMAL) POCT glucose (02/29/2024 4:33 PM CDT) Glucose, POC 373(H) 70 - 199 mg/dL Blood 02/29/2024 4:33 PM CDT 02/29/2024 4:33 PM CDT Saim Rivera DO LAB POCT ORDERABLES - DEVICE Fin al Result Performing Organization Address [facility] Co de Phone Number [address] [address] * POCT glucose (02/29/2024 11:20 AM CDT) Pathologist [facility] Glucose, POC 144 70 - 199 mg/dL Blood 02/29/2024 11:2 0 AM CDT 02/29/2024 11:20 AM CDT [facility] Rivera [facility] POCT ORDERABLES - DEVICE Fin al Result Performing Organization Address [facility] de Phone Number [address] [address] * (ABNORMAL) CBC without differential (02/29/2024 7:34 AM CDT) [facility] WBC 12.4(H) 3.8 - 9.9 K/cumm Hgb 11.2(L) 13.0 - 17.5 g/dL [facility] Hct 34.0(L) 38.9 - 50.3 % [facility] Plt 365 150 - 400 K/cumm [facility] MPV 9.9 9.1 - 12.3 fL [facility] RBC 3.17(L) 4.30 - 5.80 M/cumm [facility] MCV 107.3(H) 81.3 - 96.4 fL [facility] MCH 35.3(H) 27.1 - 33.3 pg [facility] MCHC 32.9 32.3 - 35.7 g/dL [facility] RDW CV 17.2(H) 11.1 - 14.9 % [facility] RDW SD 67.0(H) 35.7 - 48.1 fL [facility] NRBC abs 0.27(H) 0.00 - 0.01 K/cumm [facility] Blood 02/29/2024 7:34 AM CDT 02/29/2024 8:13 AM CDT Josefa Taylor LAB BLOOD ORDERABLES Pilar l Result Performing Organization Address [facility] Co de Phone Number LESLIE[address] [place] [address] * POCT glucose (02/29/2024 7:18 AM CDT) Glucose, POC 123 70 - 199 mg/dL Blood 02/29/2024 7:18 AM CDT 02/29/2024 7:18 AM CDT Saim Rivera DO LAB POCT ORDERABLES - DEVICE Fin al Result Performing Organization Address [facility] de Phone Number [address] [place] [address] * POCT glucose (02/29/2024 2:06 AM CDT) Glucose, POC 150 70 - 199 mg/dL Glucose comment 1 Use This Result [facility] Glucose comment 2 RN/MD Notified [facility] Blood 02/29/2024 2:06 AM CDT 02/29/2024 2:06 AM CDT Saim Rivera DO LAB POCT ORDERABLES - DEVICE Fin al Result Performing Organization Address [facility] Co de Phone Number [address] [place] [address] * POCT glucose (02/29/2024 1:00 AM CDT) Glucose, POC 100 70 - 199 mg/dL Blood 02/29/2024 1:00 AM CDT 02/29/2024 1:00 AM CDT Saim Rivera DO LAB POCT ORDERABLES - DEVICE Fin al Result Performing Organization Address [facility]/ZIP Co de Phone Number ZULEMA [address] [address] * (ABNORMAL) POCT glucose (02/29/2024 12:43 AM CDT) Glucose, POC 59(L) 70 - 199 mg/dL Blood 02/29/2024 12:4 3 AM CDT 02/29/2024 12:43 AM CDT Saim Rivera DO LAB POCT ORDERABLES - DEVICE Fin al Result Performing Organization Address [facility] Co de Phone Number ZULEMA [address] [address] * (ABNORMAL) POCT glucose (02/29/2024 12:08 AM CDT) Glucose, POC 56(L) 70 - 199 mg/dL Glucose comment 1 Use This Result [facility] Glucose comment 2 RN/MD [facility]ified [facility] Blood 02/29/2024 12:0 8 AM CDT 02/29/2024 12:08 AM CDT Saim Rivera DO LAB POCT ORDERABLES - DEVICE Fin al Result Performing Organization Address [facility] Co de Phone Number ZULEMA [address] [place] [address] * (ABNORMAL) POCT glucose (02/28/2024 8:40 PM CDT) Glucose, POC 296(H) 70 - 199 mg/dL Glucose comment 1 Use This Result [facility] Glucose comment 2 RN/MD Notified [facility] Blood 02/28/2024 8:40 PM CDT 02/28/2024 8:40 PM CDT Saim Rivera DO LAB POCT ORDERABLES - DEVICE Fin al Result Performing Organization Address [facility] Co de Phone Number ZULEMA [address] [place] [address] * (ABNORMAL) POCT glucose (02/28/2024 4:55 PM CDT) Glucose, POC 248(H) 70 - 199 mg/dL Glucose comment 1 Use This Result ZU[facility] Blood 02/28/2024 4:55 PM CDT 02/28/2024 4:55 PM CDT Saim Rivera DO LAB POCT ORDERABLES - DEVICE Fin al Result Performing Organization Address [facility] Co de Phone Number [address]ES[address] [address] * POCT glucose (02/28/2024 12:39 PM CDT) Glucose, POC 163 70 - 199 mg/dL Glucose comment 1 Use This Result ZU[facility]MA Blood 02/28/2024 12:3 9 PM CDT 02/28/2024 12:39 PM CDT Saim Rivera DO LAB POCT ORDERABLES - DEVICE Fin al Result Performing Organization Address [facility] Co de Phone Number LESLIE[address] [place] [address] * POCT glucose (02/28/2024 12:02 PM CDT) Glucose, POC 173 70 - 199 mg/dL Blood 02/28/2024 12:0 2 PM CDT 02/28/2024 12:02 PM CDT Saim Rivera DO LAB POCT ORDERABLES - DEVICE Fin al Result Performing Organization Address City/[facility]/ZIP Co de Phone Number LESLIE[address] [place] [address] * EGD (02/28/2024 11:38 AM CDT) Anatomical Region Laterality Modality Other Narrative Procedure Note Gee Mcdaniel MD - 02/28/2024 11:38 AM CDT [facility] GI ENDOSCOPY Patient Name: Bri Jones Procedure Date: 02/28/2024 11:38 AM Date of : 1965 Admit Type: Inpatient Age: 58 Gender: Male Attending MD: Gee Ravi M.D. Room: [facility] ENDOSCOPY ROOM [facility] Note Status: Finalized Procedure: Upper GI endoscopy [...] On: 02/28/2024 11:38 AM Recognized by the [employer] for promoting quality in endoscopy Gee Mcdaniel MD ENDOSCOPY P ROCEDURES Final Result * POCT glucose (02/28/2024 8:02 AM CDT) Glucose, POC 118 70 - 199 mg/dL Glucose comment 1 Use This Result ZULEMA CHAVEZ Blood 02/28/2024 8:02 AM CDT 02/28/2024 8:02 AM CDT Diana Rivera DO LAB POCT ORDERABLES - DEVICE Fin al Result [facility] [address] [facility] Department [place] [address] * (ABNORMAL) Lipid panel (02/28/2024 [...] LAB BLOOD ORDERABLES Final Resul t ZULEMA [address] [facility] Department [place] [address] * eGFR (02/28/2024 5:26 AM [...] LAB BLOOD ORDERABLES Final Resul t ZULEMA [address] [facility] Department [place] [address] * (ABNORMAL) Basic metabolic panel (02/28/2024 5:26 AM CDT) Sodium 136 135 - 145 mmol/L Potassium, pl 4.3 3.3 - 4.9 mmol/L [facility] Comment:Hemolyzed; Potassium value may be falsely elevated by as much as 1.0 mmol/L. Suggest redraw and reanalysis. Chloride 98 97 - 110 mmol/L [facility] CO2 28 22 - 32 mmol/L [facility] Anion gap 10 2 - 15 mmol/L [facility] BUN 28(H) 6 - 25 mg/dL [facility] Creatinine 0.78(L) 0.80 - 1.30 mg/dL [facility] Glucose 164 70 - 199 mg/dL [facility] Comment: Interpretive Data Fasting glucose [...] 2022. Calcium 8.7 8.5 - 10.3 mg/dL [facility] Blood 02/28/2024 5:26 AM CDT 02/28/2024 6:30 AM CDT us Diana Rivera DO LAB BLOOD ORDERABLES Final Resul t [facility] [address] [facility] Department [place] [address] * (ABNORMAL) CBC without differential (02/28/2024 5:26 AM CDT) WBC 13.6(H) 3.8 - 9.9 K/cumm Hgb 11.4(L) 13.0 - 17.5 g/dL [facility] Hct 33.9(L) 38.9 - 50.3 % [facility] Plt 378 150 - 400 K/cumm [facility] MPV 9.8 9.1 - 12.3 fL [facility] RBC 3.26(L) 4.30 - 5.80 M/cumm [facility] MCV 104.0(H) 81.3 - 96.4 fL [facility] MCH 35.0(H) 27.1 - 33.3 pg [facility] MCHC 33.6 32.3 - 35.7 g/dL [facility] RDW CV 16.5(H) 11.1 - 14.9 % [facility] RDW SD 62.6(H) 35.7 - 48.1 fL [facility] NRBC abs 0.42(H) 0.00 - 0.01 K/cumm [facility] Blood 02/28/2024 5:26 AM CDT 02/28/2024 6:30 AM CDT Josefa Taylor [employer] LAB BLOOD ORDERABLES Pilar l Result Performing Organization Address [facility] Co de Phone Number LESLIE[address] [place] [address] * POCT glucose (02/28/2024 4:09 AM CDT) Glucose, POC 184 70 - 199 mg/dL Glucose comment 1 Use This Result [facility] Glucose comment 2 RN/MD Notified [facility] Blood 02/28/2024 4:09 AM CDT 02/28/2024 4:09 AM CDT Saim Rivera DO LAB POCT ORDERABLES - DEVICE Fin al Result Performing Organization Address [facility] Co de Phone Number [address] [place] [address] * (ABNORMAL) POCT glucose (02/28/2024 4:08 AM CDT) Glucose, POC 202(H) 70 - 199 mg/dL Blood 02/28/2024 4:08 AM CDT 02/28/2024 4:08 AM CDT Saim Rivera DO LAB POCT ORDERABLES - DEVICE Fin al Result Performing Organization Address [facility] Co de Phone Number [address] [place] [address] * POCT glucose (02/28/2024 12:34 AM CDT) Glucose, POC 132 70 - 199 mg/dL Glucose comment 1 Use This Result [facility] Glucose comment 2 RN/MD Notified ZULEMA Blood 02/28/2024 12:3 4 AM CDT 02/28/2024 12:34 AM CDT us Saim Rivera DO LAB POCT ORDERABLES - DEVICE Fin al Result Performing Organization Address [facility] de Phone Number ZULEMA [address] [place] [address] * POCT glucose (02/27/2024 11:46 PM CDT) Glucose, POC 97 70 - 199 mg/dL Glucose comment 1 Use This Result [facility] Glucose comment 2 RN/MD Notified [facility] Blood 02/27/2024 11:4 6 PM CDT 02/27/2024 11:46 PM CDT Saim Rivera DO LAB POCT ORDERABLES - DEVICE Fin al Result Performing Organization Address [facility] de Phone Number ZULEMA [address] [place] [address] * POCT glucose (02/27/2024 11:17 PM CDT) Glucose, POC 128 70 - 199 mg/dL Glucose comment 1 Use This Result [facility] Glucose comment 2 RN/ Notified ZULEMA Blood 02/27/2024 11:1 7 PM CDT 02/27/2024 11:17 PM CDT us Saim Rivera DO LAB POCT ORDERABLES - DEVICE Fin al Result Performing Organization Address [facility] de Phone Number LESLIE[address] [place] [address] * (ABNORMAL) POCT glucose (02/27/2024 8:56 PM CDT) Glucose, POC 340(H) 70 - 199 mg/dL Glucose comment 1 Use This Result [facility] Glucose comment 2 RN/ Notified ZULEMA Blood 02/27/2024 8:56 PM CDT 02/27/2024 8:56 PM CDT us Diana Rivera DO LAB POCT ORDERABLES - DEVICE Fin al Result ZULEMA [address] [facility] Department [place] [address] * XR Chest PA Lateral 2 Views (02/27/2024 6:05 PM CDT) Anatomical Region Laterality Modality Body, Chest N/A Computed Radiogr aphy 02/28/2024 5:50 AM CDT Narrative 02/28/2024 5:53 AM CDT EXAM DESCRIPTION: XR CHEST PA LATERAL 2 VIEWS REASON FOR STUDY: Immunosuppressed state pneumoniae ?? Evaluate immunosupressed pneumoniae. ?? TECHNIQUE: PA and lateral ??radiographic view(s) of the chest. COMPARISON: [id number]. FINDINGS: LUNGS: ??There is apical opacity on [...] D: ??02/28/2024 5:53 AM T: Report ID: [id number] Reading Location: ??[id number] Procedure Note Vianey Mares MD - 02/28/2024 EXAM DESCRIPTION: XR CHEST PA LATERAL 2 VIEWS REASON FOR STUDY: Immunosuppressed state pneumoniae Evaluate immunosupressed pneumoniae. TECHNIQUE: PA and lateral radiographic view(s) of the chest. COMPARISON: [id number]. FINDINGS: LUNGS: There is apical opacity on [...] Vianey Mares M.D. TW T: Report ID: [id number] Reading Location: [place] [address] Osmar Orta MD IMG XR PROCEDURES Final Resu lt * POCT glucose (02/27/2024 5:04 PM CDT) Glucose, POC 123 70 - 199 mg/dL Blood 02/27/2024 5:04 PM CDT 02/27/2024 5:04 PM CDT Saim Rivera DO LAB POCT ORDERABLES - DEVICE Fin al Result Performing Organization Address [facility] de Phone Number [address] [place] [address] * POCT glucose (02/27/2024 12:01 PM CDT) Glucose, POC 151 70 - 199 mg/dL Blood 02/27/2024 12:0 1 PM CDT 02/27/2024 12:01 PM CDT Saim Rviera DO LAB POCT ORDERABLES - DEVICE Fin al Result Performing Organization Address [facility] Co de Phone Number LESLIE[address] [place] [address] * (ABNORMAL) POCT glucose (02/27/2024 8:00 AM CDT) Glucose, POC 59(L) 70 - 199 mg/dL Blood 02/27/2024 8:00 AM CDT 02/27/2024 8:00 AM CDT Diana Rivera DO LAB POCT ORDERABLES - DEVICE Fin al Result Performing Organization Address [facility] de Phone Number ZULEMA [address] [place] [address] * (ABNORMAL) CBC without differential (02/27/2024 6:10 AM CDT) Pathologist [facility] WBC 14.4(H) 3.8 - 9.9 K/cumm Hgb 10.4(L) 13.0 - 17.5 g/dL [facility] Hct 31.7(L) 38.9 - 50.3 % [facility] Plt 358 150 - 400 K/cumm [facility] MPV 9.9 9.1 - 12.3 fL [facility] RBC 3.05(L) 4.30 - 5.80 M/cumm [facility] MCV 103.9(H) 81.3 - 96.4 fL [facility] MCH 34.1(H) 27.1 - 33.3 pg [facility] MCHC 32.8 32.3 - 35.7 g/dL [facility] RDW CV 16.3(H) 11.1 - 14.9 % [facility] RDW SD 62.5(H) 35.7 - 48.1 fL [facility] NRBC abs 0.44(H) 0.00 - 0.01 K/cumm [facility] Blood 02/27/2024 6:10 AM CDT 02/27/2024 6:20 AM CDT Josefa Taylor NP LAB BLOOD ORDERABLES Pilar l Result Performing Organization Address City/[facility] Co de Phone Number ZULEMA [address] [place] [address] * POCT glucose (02/27/2024 3:51 AM CDT) Glucose, POC 148 70 - 199 mg/dL Glucose comment 1 Use This Result [facility] Glucose comment 2 RN/MD Notified ZULEMA Blood 02/27/2024 3:51 AM CDT 02/27/2024 3:51 AM CDT Saim Rivera DO LAB POCT ORDERABLES - DEVICE Fin al Result Performing Organization Address City/[facility] Co de Phone Number [address]ES[address] [address] * POCT glucose (02/27/2024 2:15 AM CDT) Glucose, POC 87 70 - 199 mg/dL Glucose comment 1 Use This Result [facility] Glucose comment 2 RN/MD Notified ZULEMA Blood 02/27/2024 2:15 AM CDT 02/27/2024 2:15 AM CDT Saim Rivera DO LAB POCT ORDERABLES - DEVICE Fin al Result Performing Organization Address [facility] Co de Phone Number [address] [address] * POCT glucose (02/26/2024 11:49 PM CDT) Glucose, POC 178 70 - 199 mg/dL Glucose comment 1 Use This Result [facility] Glucose comment 2 RN/MD Notified [facility] Blood 02/26/2024 11:4 9 PM CDT 02/26/2024 11:49 PM CDT Saim Rivera DO LAB POCT ORDERABLES - DEVICE Fin al Result Performing Organization Address City/[facility]/ZIP Co de Phone Number [address] [address] * POCT glucose (02/26/2024 8:36 PM CDT) Glucose, POC 190 70 - 199 mg/dL Glucose comment 1 Use This Result [facility] Glucose comment 2 RN/MD Notified ZULEMA Blood 02/26/2024 8:36 PM CDT 02/26/2024 8:36 PM CDT Saim Rivera DO LAB POCT ORDERABLES - DEVICE Fin al Result Performing Organization Address City/[facility] Co de Phone Number LESLIE[address] [place] [address] * (ABNORMAL) POCT glucose (02/26/2024 4:39 PM CDT) Glucose, POC 384(H) 70 - 199 mg/dL Glucose comment 1 Use This Result [facility] Blood 02/26/2024 4:39 PM CDT 02/26/2024 4:39 PM CDT SaDattch Rivera DO LAB POCT ORDERABLES - DEVICE Fin al Result Performing Organization Address [facility] de Phone Number LESLIE[address] [place] [address] * POCT glucose (02/26/2024 11:39 AM CDT) Glucose, POC 97 70 - 199 mg/dL Glucose comment 1 Use This Result [facility] Blood 02/26/2024 11:3 9 AM CDT 02/26/2024 11:39 AM CDT Saim Rivera DO LAB POCT ORDERABLES - DEVICE Fin al Result Performing Organization Address [facility] Co de Phone Number [address] [place] [address] * POCT glucose (02/26/2024 10:53 AM CDT) Glucose, POC 111 70 - 199 mg/dL Glucose comment 1 Use This Result [facility] Blood 02/26/2024 10:5 3 AM CDT 02/26/2024 10:53 AM CDT Saim Rivera DO LAB POCT ORDERABLES - DEVICE Fin al Result Performing Organization Address [facility] Co de Phone Number ZULEMA [address] [place] [address] * (ABNORMAL) POCT glucose (02/26/2024 10:30 AM CDT) Glucose, POC 61(L) 70 - 199 mg/dL Glucose comment 1 Use This Result ZU[facility] Glucose comment 2 RN/MD Notified [facility] Blood 02/26/2024 10:3 0 AM CDT 02/26/2024 10:30 AM CDT Saim Rivera DO LAB POCT ORDERABLES - DEVICE Fin al Result Performing Organization Address [facility] Co de Phone Number LESLIE[address] [place] [address] * POCT glucose (02/26/2024 7:34 AM CDT) Glucose, POC 163 70 - 199 mg/dL Glucose comment 1 Use This Result [facility] Blood 02/26/2024 7:34 AM CDT 02/26/2024 7:34 AM CDT Saim Rivera DO LAB POCT ORDERABLES - DEVICE Fin al Result Performing Organization Address [facility] Co de Phone Number LESLIE[address] [place] [address] * eGFR (02/26/2024 5:42 AM CDT) eGFR [...] NP LAB BLOOD ORDERABLES Pilar armas Result [facility] [address] [facility] Department [place] [address] * (ABNORMAL) CBC without differential (02/26/2024 5:42 AM CDT) WBC 13.4(H) 3.8 - 9.9 K/cumm Hgb 11.6(L) 13.0 - 17.5 g/dL [facility] Hct 34.7(L) 38.9 - 50.3 % [facility] Plt 418(H) 150 - 400 K/cumm [facility] MPV 10.1 9.1 - 12.3 fL [facility] RBC 3.31(L) 4.30 - 5.80 M/cumm [facility] MCV 104.8(H) 81.3 - 96.4 fL [facility] MCH 35.0(H) 27.1 - 33.3 pg [facility] MCHC 33.4 32.3 - 35.7 g/dL [facility] RDW CV 16.2(H) 11.1 - 14.9 % [facility] RDW SD 62.5(H) 35.7 - 48.1 fL [facility] NRBC abs 0.25(H) 0.00 - 0.01 K/cumm [facility] Blood 02/26/2024 5:42 AM CDT 02/26/2024 6:49 AM CDT Josefa Taylor NP LAB BLOOD ORDERABLES Pilar armas Result Performing Organization Address City/State/[facility] Co de Phone Number [facility] [address] [facility] Department [place] [address] * Basic metabolic panel (02/26/2024 5:42 AM CDT) Sodium 139 135 - 145 mmol/L Potassium, pl 3.6 3.3 - 4.9 mmol/L [facility] Chloride 99 97 - 110 mmol/L [facility] CO2 31 22 - 32 mmol/L [facility] Anion gap 9 2 - 15 mmol/L [facility] BUN 24 6 - 25 mg/dL [facility] Creatinine 0.81 0.80 - 1.30 mg/dL [facility] Glucose 140 70 - 199 mg/dL [facility] Comment: Interpretive Data Fasting glucose [...] 2022. Calcium 9.1 8.5 - 10.3 mg/dL [facility] Blood 02/26/2024 5:42 AM CDT 02/26/2024 6:50 AM CDT Josefa McculloughBrandon LAB BLOOD ORDERABLES Pilar l Result Performing Organization Address [facility] de Phone Number [address] [place] [address] * POCT glucose (02/26/2024 4:22 AM CDT) Glucose, POC 125 70 - 199 mg/dL Glucose comment 1 Use This Result [facility] Blood 02/26/2024 4:22 AM CDT 02/26/2024 4:22 AM CDT [facility] Rivera DO LAB POCT ORDERABLES - DEVICE Fin al Result Performing Organization Address [facility] de Phone Number [address] [place] [address] * POCT glucose (02/26/2024 12:14 AM CDT) Glucose, POC 121 70 - 199 mg/dL Blood 02/26/2024 12:1 4 AM CDT 02/26/2024 12:14 AM CDT Saim Rivera DO LAB POCT ORDERABLES - DEVICE Fin al Result Performing Organization Address [facility] de Phone Number [address] [place] [address] * (ABNORMAL) POCT glucose (02/25/2024 7:22 PM CDT) Glucose, POC 362(H) 70 - 199 mg/dL Glucose comment 1 Use This Result [facility] Glucose comment 2 RN/MD Notified [facility] Blood 02/25/2024 7:22 PM CDT 02/25/2024 7:22 PM CDT Diana Christensena DO LAB POCT ORDERABLES - DEVICE Fin al Result Performing Organization Address [facility] de Phone Number ZULEMA [facility] [place] [address] * POCT glucose (02/25/2024 4:26 PM CDT) [facility] Signature Glucose, POC 152 70 - 199 mg/dL Glucose comment 1 Use This Result ZU[facility]MA Blood 02/25/2024 4:26 PM CDT 02/25/2024 4:26 PM CDT Result [facility] Diana Rivera DO LAB POCT ORDERABLES - DEVICE Clark al Result Performing Organization Address [facility] de Phone Number ZULEMA [address] [address] * TRANSTHORACIC ECHO (TTE) COMPLETE W DOPPLER/CF W CONTRAST (02/25/2024 2:03 PM CDT) Anatomical Region Laterality Modality Ultrasound 02/25/2024 2:03 PM CDT Narrative 02/26/2024 4:01 PM CDT ? Adult Echocardiogram + ----- + :Name: BRI JONES ??Study Date: 02/25/2024 ?Status: MHB ?: : ?Patient Location: [facility]^[id number]^Height: 71 in ?: : ?Weight: 142 lbBP: [...] Date: 02/25/2024Status: MHB : : Patient Location: [address]^[id number]^Height: 71 in : : : 142 lbBP: [...] ORDERABLES - DEVICE Fin al Result ZULEMA [address] [facility] Department [place] [address] * POCT glucose (02/25/2024 7:57 AM CDT) Glucose, POC 99 70 - 199 mg/dL Glucose comment 1 Use This Result ZU[facility] Glucose comment 2 RN/MD Notified [facility] Blood 02/25/2024 7:57 AM CDT 02/25/2024 7:57 AM CDT Diana Rivera DO LAB POCT ORDERABLES - DEVICE Fin al Result Performing Organization Address [facility] de Phone Number LESLIE[address] [place] [address] * (ABNORMAL) POCT glucose (02/25/2024 4:21 AM CDT) Glucose, POC 218(H) 70 - 199 mg/dL Glucose comment 1 Use This Result Z[facility] Blood 02/25/2024 4:21 AM CDT 02/25/2024 4:21 AM CDT Corbin Cole MD LAB POCT ORDERABLES - DEVICE Final Result Performing Organization Address [facility] de Phone Number [address] [address] * eGFR (02/25/2024 2:22 AM CDT) Pathologist [facility] eGFR >90 [...] MD LAB BLOOD ORDERABLES Final R esult [place] [id number] [facility] Department [place] [address] * (ABNORMAL) Differential, auto (02/25/2024 2:22 AM CDT) Neutrophil abs 10.0(H) 1.5 - 6.5 K/cumm Imm gran abs 0.1 0.0 - 0.1 K/cumm [facility] Lymphocyte abs 4.0(H) 0.8 - 3.3 K/cumm [facility] Monocyte abs 1.2(H) 0.2 - 0.8 K/cumm [facility] Eosinophil abs 0.0 0.0 - 0.5 K/cumm [facility] Basophil abs 0.0 0.0 - 0.1 K/cumm [facility] Neutrophil pct 65.4 % [facility] Comment: Interpretive Data Percent cell count reference ranges are not reported, since discordance with absolute values may lead to misinterpretation of CBC data. Current Interpretive Data was last revised on 2018. Imm gran pct 0.7 % [facility] Comment: Interpretive Data Percent cell count reference ranges are not reported, since discordance with absolute values may lead to misinterpretation of CBC data. Current Interpretive Data was last revised on 2018. Lymphocyte pct 26.0 % [facility] Comment: Interpretive Data Percent cell count reference ranges are not reported, since discordance with absolute values may lead to misinterpretation of CBC data. Current Interpretive Data was last revised on 2018. Monocyte pct 7.8 % [facility] Comment: Interpretive Data Percent cell count reference ranges are not reported, since discordance with absolute values may lead to misinterpretation of CBC data. Current Interpretive Data was last revised on 2018. Eosinophil pct 0.0 % [facility] Comment: Interpretive Data Percent cell count reference ranges are not reported, since discordance with absolute values may lead to misinterpretation of CBC data. Current Interpretive Data was last revised on 2018. Basophil pct 0.1 % [facility] Comment: Interpretive Data Percent cell count reference ranges are not reported, since discordance with absolute values may lead to misinterpretation of CBC data. Current Interpretive Data was last revised on 2018. Blood 02/25/2024 2:22 AM CDT 02/25/2024 3:28 AM CDT us Osmar Orta MD LAB BLOOD ORDERABLES Final R esult [place] [id number] [facility] Department [place] [address] * Comprehensive metabolic panel (02/25/2024 2:22 AM CDT) Sodium 140 135 - 145 mmol/L Potassium, pl 3.9 3.3 - 4.9 mmol/L [facility] Chloride 102 97 - 110 mmol/L [facility] CO2 28 22 - 32 mmol/L [facility] Anion gap 10 2 - 15 mmol/L [facility] BUN 22 6 - 25 mg/dL [facility] Creatinine 0.90 0.80 - 1.30 mg/dL [facility] Glucose 71 70 - 199 mg/dL [facility] Comment: Delta - Results Reviewed [...] 2022. Calcium 8.9 8.5 - 10.3 mg/dL [facility] Bilirubin, total 0.2 0.1 - 1.2 mg/dL [facility] Protein, pl 7.4 6.5 - 8.5 g/dL [facility] Albumin 3.5 3.5 - 5.0 g/dL [facility] Alk phos 113 40 - 130 Units/L [facility] ALT 27 7 - 55 Units/L [facility] AST 22 10 - 50 Units/L [facility] Blood 02/25/2024 2:22 AM CDT 02/25/2024 3:28 AM CDT us Osmar Orta MD LAB BLOOD ORDERABLES Final R esult [facility] [address] [facility] Department [place] [address] * (ABNORMAL) CBC with auto differential (02/25/2024 2:22 AM CDT) WBC 15.2(H) 3.8 - 9.9 K/cumm Hgb 11.1(L) 13.0 - 17.5 g/dL [facility] Hct 33.6(L) 38.9 - 50.3 % [facility] Plt 405(H) 150 - 400 K/cumm [facility] MPV 10.2 9.1 - 12.3 fL [facility] RBC 3.17(L) 4.30 - 5.80 M/cumm [facility] MCV 106.0(H) 81.3 - 96.4 fL [facility] MCH 35.0(H) 27.1 - 33.3 pg [facility] MCHC 33.0 32.3 - 35.7 g/dL [facility] RDW CV 15.9(H) 11.1 - 14.9 % [facility] RDW SD 62.0(H) 35.7 - 48.1 fL [facility] NRBC abs 0.09(H) 0.00 - 0.01 K/cumm [facility] Blood 02/25/2024 2:22 AM CDT 02/25/2024 3:28 AM CDT Osmar Orta MD LAB BLOOD ORDERABLES Final R esult Performing Organization Address [facility] Co de Phone Number ZULEMA [address] [address] * POCT glucose (02/25/2024 2:15 AM CDT) Glucose, POC 78 70 - 199 mg/dL Blood 02/25/2024 2:15 AM CDT 02/25/2024 2:15 AM CDT Corbin Cole MD LAB POCT ORDERABLES - DEVICE Final Result Performing Organization Address [facility] de Phone Number ZULEMA [address] [place] [address] * POCT glucose (02/24/2024 11:22 PM CDT) Glucose, POC 152 70 - 199 mg/dL Glucose comment 1 Use This Result ZULEMA Blood 02/24/2024 11:2 2 PM CDT 02/24/2024 11:22 PM CDT Corbin Cole MD LAB POCT ORDERABLES - DEVICE Final Result Performing Organization Address [facility] de Phone Number ZULEMA [address] [address] * (ABNORMAL) POCT glucose (02/24/2024 7:32 PM CDT) Glucose, POC 229(H) 70 - 199 mg/dL Glucose comment 1 Use This Result ZULEMA Blood 02/24/2024 7:32 PM CDT 02/24/2024 7:32 PM CDT Corbin Cole MD LAB POCT ORDERABLES - DEVICE Final Result Performing Organization Address City/[facility]/ZIP Co de Phone Number ZULEMA [address] [facility] [place] [address] * POCT glucose (02/24/2024 4:57 PM CDT) Glucose, POC 131 70 - 199 mg/dL Glucose comment 1 Use This Result ZULEMA Blood 02/24/2024 4:57 PM CDT 02/24/2024 4:57 PM CDT Corbin Cole MD LAB POCT ORDERABLES - DEVICE Final Result Performing Organization Address [facility] Co de Phone Number ZULEMA [address] [place] [address] * Blood culture Blood Arm, right (02/24/2024 1:18 PM CDT) Report Final Report: No growth Comment:Testing performed by : [facility], [address] [facility], [place]., [address] Blood (Arm, right) 02/24/2024 1:18 PM CDT [...] organism identification may be performed using the LY.comigene Gram-Positive Blood Culture Assay. This assay detects microbial DNA in positive blood culture broth via hybridization of target DNA to capture oligonucleotides on a microarray. This assay has been cleared by the [place] Food and Drug Administration and its performance characteristics have been verified by the [facility] Microbiology Laboratory. 5. ?For questions about this culture, contact the Microbiology Laboratory at [phone]. Interpretive data was last revised on 2020. Corbin Cole MD LAB MICROBIOLOGY - [facility] ORDERABLES Final Result ZULEMA [address] [facility] Department [place] [address] * Blood culture Blood Arm, right (02/24/2024 12:56 PM CDT) Report Final Report: No growth Comment:Testing performed by : [facility], [address] [facility], [place]., [address] Blood (Arm, right) 02/24/2024 12:56 PM CDT [...] performance characteristics have been verified by the [facility] Microbiology Laboratory. 5. ?For questions about this culture, contact the Microbiology Laboratory at [phone]. Interpretive data was last revised on 2020. Corbin Cole MD LAB MICROBIOLOGY - G ENERAL ORDERABLES Final Result Performing Organization Address [facility] Co de Phone Number ZULEMA [address] [place] [address] * POCT glucose (02/24/2024 11:51 AM CDT) Glucose, POC 105 70 - 199 mg/dL Glucose comment 1 Use This Result ZULEMA Blood 02/24/2024 11:5 1 AM CDT 02/24/2024 11:51 AM CDT Result [facility] Corbin Cole MD LAB POCT ORDERABLES - DEVICE Final Result Performing Organization Address [facility] de Phone Number LESLIE[address] [place] [address] * POCT glucose (02/24/2024 8:22 AM CDT) Glucose, POC 112 70 - 199 mg/dL Glucose comment 1 Use This Result ZULEMA Blood 02/24/2024 8:22 AM CDT 02/24/2024 8:22 AM CDT Corbin Cole MD LAB POCT ORDERABLES - DEVICE Final Result Performing Organization Address [facility] Co de Phone Number CERNER [address] [place] [address] * eGFR (02/24/2024 4:56 AM CDT) [facility] eGFR >90 >=60 mL/min/1. 73 m2 Comment: [...] LAB BLOOD ORDERABLES Pilar armas Result Z[place] [address] [facility] Department [place] [address] * (ABNORMAL) CBC without differential (02/24/2024 4:56 AM CDT) [facility] WBC 11.7(H) 3.8 - 9.9 K/cumm Hgb 11.3(L) 13.0 - 17.5 g/dL [facility] Hct 34.2(L) 38.9 - 50.3 % [facility] Plt 382 150 - 400 K/cumm [facility] MPV 10.3 9.1 - 12.3 fL [facility] RBC 3.23(L) 4.30 - 5.80 M/cumm [facility] MCV 105.9(H) 81.3 - 96.4 fL [facility] MCH 35.0(H) 27.1 - 33.3 pg [facility] MCHC 33.0 32.3 - 35.7 g/dL [facility] RDW CV 15.9(H) 11.1 - 14.9 % [facility] RDW SD 61.6(H) 35.7 - 48.1 fL [facility] NRBC abs 0.03(H) 0.00 - 0.01 K/cumm [facility] Blood 02/24/2024 4:56 AM CDT 02/24/2024 6:09 AM CDT Josefa Taylor NP LAB BLOOD ORDERABLES Pilar armas Result [facility] [address] [facility] Department [place] [address] * (ABNORMAL) Basic metabolic panel (02/24/2024 4:56 AM CDT) Sodium 137 135 - 145 mmol/L Potassium, pl 4.0 3.3 - 4.9 mmol/L [facility] Chloride 98 97 - 110 mmol/L [facility] CO2 30 22 - 32 mmol/L [facility] Anion gap 9 2 - 15 mmol/L [facility] BUN 19 6 - 25 mg/dL [facility] Creatinine 0.67(L) 0.80 - 1.30 mg/dL [facility] Glucose 288(H) 70 - 199 mg/dL [facility] Comment: Interpretive Data Fasting glucose [...] 2022. Calcium 9.0 8.5 - 10.3 mg/dL [facility] Blood 02/24/2024 4:56 AM CDT 02/24/2024 6:09 AM CDT Josefa Taylor NP LAB BLOOD ORDERABLES Pilar l Result Performing Organization Address [facility] Co de Phone Number [address] [place] [address] * (ABNORMAL) POCT glucose (02/24/2024 4:14 AM CDT) Glucose, POC 345(H) 70 - 199 mg/dL Glucose comment 1 Use This Result [facility] Glucose comment 2 RN/MD Notified [facility] Blood 02/24/2024 4:14 AM CDT 02/24/2024 4:14 AM CDT Corbin Cole MD LAB POCT ORDERABLES - DEVICE Final Result Performing Organization Address City/[facility] Co de Phone Number [address] [place] [employer] [address] * POCT glucose (02/24/2024 12:00 AM CDT) Glucose, POC 115 70 - 199 mg/dL Blood 02/24/2024 02/24/2024 12: 00 AM CDT Corbin Cole MD LAB POCT ORDERABLES - DEVICE Final Result Performing Organization Address City/[facility]/ZIP Co de Phone Number [address] [place] [address] * (ABNORMAL) POCT glucose (02/23/2024 8:19 PM CDT) Glucose, POC 336(H) 70 - 199 mg/dL Glucose comment 1 Use This [facility] Glucose comment 2 RN/MD Notified ZULEMA Blood 02/23/2024 8:19 PM CDT 02/23/2024 8:19 PM CDT Corbin Cole MD LAB POCT ORDERABLES - DEVICE Final Result Performing Organization Address [facility] Co de Phone Number LESLIEAVTAR [address] [address] * (ABNORMAL) POCT glucose (02/23/2024 4:48 PM CDT) Glucose, POC 245(H) 70 - 199 mg/dL Glucose comment 1 Use This Result [facility] Glucose comment 2 RN/MD Notified ZULEMA Blood 02/23/2024 4:48 PM CDT 02/23/2024 4:48 PM CDT Corbin Cole MD LAB POCT ORDERABLES - DEVICE Final Result Performing Organization Address [facility] Co de Phone Number [address] [place] [address] * POCT glucose (02/23/2024 11:30 AM CDT) Glucose, POC 118 70 - 199 mg/dL Glucose comment 1 Use This Result [facility] Blood 02/23/2024 11:3 0 AM CDT 02/23/2024 11:30 AM CDT us Corbin Cole MD LAB POCT ORDERABLES - DEVICE Final Result Performing Organization Address City/[facility]/ZIP Co de Phone Number [address] [place] [address] * Mycoplasma pneumoniae PCR Sputum (02/23/2024 8:53 AM CDT) Pathologist [facility] M. pneumoniae DNA Not Detected Not Detected [facility] Comment: Interpretive Data: This assay tests for the presence of Mycoplasma pneumoniae. ?? This test is laboratory developed and its performance characteristics were determined by the performing laboratory in a manner consistent with CLIA requirements. This test has not been cleared or approved by the U.S. Food and Drug Administration. Current Interpretive Data was last revised on 2020. Testing performed by: [facility], [address] [facility] [place] [address] Sputum 02/23/2024 8:53 AM CDT 02/23/2024 7:05 PM CDT Corbin Cole MD LAB MICROBIOLOGY - G ENERAL ORDERABLES Final Result Performing Organization Address [facility]/ZIP Co de Phone Number [place] [address] [facility] [place] [address] [facility] * POCT glucose (02/23/2024 7:36 AM CDT) [facility] Glucose, POC 159 70 - 199 mg/dL Glucose comment 1 Use This Result [facility] Blood 02/23/2024 7:36 AM CDT 02/23/2024 7:36 AM CDT Corbin Cole MD LAB POCT ORDERABLES - DEVICE Final Result Performing Organization Address [facility] de Phone Number [place] [address] [facility] [place] [address] * eGFR (02/23/2024 6:31 AM CDT) [facility] eGFR >90 >=60 mL/min/1. 73 m2 Comment: [...] NP LAB BLOOD ORDERABLES Pilar armas Result [place] [address] [facility] Department [place] [address] * (ABNORMAL) CBC without differential (02/23/2024 6:31 AM CDT) WBC 7.7 3.8 - 9.9 K/cumm Hgb 10.5(L) 13.0 - 17.5 g/dL [facility] Hct 31.5(L) 38.9 - 50.3 % [facility] Plt 339 150 - 400 K/cumm [facility] MPV 9.9 9.1 - 12.3 fL [facility] RBC 3.01(L) 4.30 - 5.80 M/cumm [facility] MCV 104.7(H) 81.3 - 96.4 fL [facility] MCH 34.9(H) 27.1 - 33.3 pg [facility] MCHC 33.3 32.3 - 35.7 g/dL [facility] RDW CV 15.5(H) 11.1 - 14.9 % [facility] RDW SD 59.8(H) 35.7 - 48.1 fL [facility] NRBC abs 0.00 0.00 - 0.01 K/cumm [facility] Blood 02/23/2024 6:31 AM CDT 02/23/2024 7:19 AM CDT Josefa Taylor NP LAB BLOOD ORDERABLES Pilar armas Result [facility] [address] [facility] Department [place] [address] * (ABNORMAL) Basic metabolic panel (02/23/2024 6:31 AM CDT) Sodium 135 135 - 145 mmol/L Potassium, pl 4.2 3.3 - 4.9 mmol/L [facility] Chloride 98 97 - 110 mmol/L [facility] CO2 28 22 - 32 mmol/L [facility] Anion gap 9 2 - 15 mmol/L [facility] BUN 15 6 - 25 mg/dL [facility] Creatinine 0.62(L) 0.80 - 1.30 mg/dL [facility] Glucose 239(H) 70 - 199 mg/dL [facility] Comment: Interpretive Data Fasting glucose [...] 2022. Calcium 8.3(L) 8.5 - 10.3 mg/dL [facility] Blood 02/23/2024 6:31 AM CDT 02/23/2024 7:19 AM CDT Josefa Taylor NP LAB BLOOD ORDERABLES Pilar l Result Performing Organization Address [facility] Co de Phone Number [address] [address] * POCT glucose (02/22/2024 7:17 PM CDT) Glucose, POC 186 70 - 199 mg/dL Glucose comment 1 Use This Result [facility] Glucose comment 2 RN/MD Notified [facility] Blood 02/22/2024 7:17 PM CDT 02/22/2024 7:17 PM CDT Corbin Cole MD LAB POCT ORDERABLES - DEVICE Final Result Performing Organization Address [facility] de Phone Number [address] [address] * POCT glucose (02/22/2024 5:21 PM CDT) [facility] Glucose, POC 176 70 - 199 mg/dL Blood 02/22/2024 5:21 PM CDT 02/22/2024 5:21 PM CDT Corbin Cole MD LAB POCT ORDERABLES - DEVICE Final Result Performing Organization Address [facility] de Phone Number [address] [address] * Strep pneumoniae antigen, urine Urine (02/22/2024 3:05 PM CDT) [facility] S. pneumoniae Ag Negative Negative Comment: Interpretive [...] ENERAL ORDERABLES Final Result Performing Organization Address [facility] de Phone Number [address] [address] * Legionella antigen Urine (02/22/2024 3:05 PM CDT) Legionella Ag Negative Negative Comment: Interpretive Data This test detects only Legionella pneumophila serogroup 1 antigen. Testing performed by [facility] Microbiology Laboratory ([phone]). Current interpretive data was last revised on 2020. Testing performed by: [facility], [address] [place]., [address] Urine 02/22/2024 3:05 PM CDT 02/22/2024 7:06 PM CDT Corbin Cole MD LAB MICROBIOLOGY - G ENERAL ORDERABLES Final Result Performing Organization Address [facility] de Phone Number [place] [address] [place] [address] * MRSA Only (Staphylococcus aureus) PCR Nasal (02/22/2024 3:05 PM CDT) PCR Scrn, Methicillin resistant Staphylococcus aureus (MRSA) Not Detected Not Detected Comment: Interpretive Data Testing performed using Nucleic Acid Amplification with the [employer] Xpert MRSA NxG Assay. This assay detects target DNA from mecA, mecC and the SCCmec insertion site of Staphylococcus aureus using Real-Time PCR and has been cleared by the FDA. Performance characteristics have been verified by the [facility] Laboratory. Current Interpretive Data was last revised on 2023 Nasal 02/22/2024 3:05 PM CDT 02/22/2024 3:30 PM CDT Corbin Cole MD LAB MICROBIOLOGY - G ENERAL ORDERABLES Final Result ZULEMA [place] [address] [facility] Department [place] [address] * Respiratory pathogen panel Nasopharyngeal (02/22/2024 3:05 PM CDT) Influenza A RNA Not Detected Not Detected Comment:Testing performed by : [facility], [address] [facility] [place] [address] Influenza B RNA Not Detected Not Detected ZULEMA Comment:Testing performed by : [facility], [address] [place]., [address] RSV RNA Not Detected Not Detected ZULEMA Comment:Testing performed by : [facility], [address] [facility] [place] [address] COVID-19 RNA Not Detected Not Detected ZULEMA Comment:Testing performed by : [facility], [address] [facility] [place] [address] Coronavirus 229E RNA Not Detected Not Detected ZULEMA Comment:Testing performed by : [facility], [address] [facility] [place] [address] Coronavirus HKU1 RNA Not Detected Not Detected ZULEMA Comment:Testing performed by : [facility], [address] [facility] [place] [address] Coronavirus NL63 RNA Not Detected Not Detected ZULEMA Comment:Testing performed by : [facility], [address] [facility] [place] [address] Coronavirus OC43 RNA Not Detected Not Detected ZULEMA Comment:Testing performed by : [facility], [address] [facility] [place] [address] Adenovirus DNA Not Detected Not Detected ZULEMA Comment:Testing performed by : [facility], [address] [facility] [place] [address] Metapneumovirus RNA Not Detected Not Detected [facility]Testing performed by : [facility], [address] [place]., [address] Rhinovirus/Enterov irus RNA Not Detected Not Detected [facility] Comment:Testing performed by : [facility], [address] [facility] [place], [address] Parainfluenza 1 RNA Not Detected Not Detected [facility] Comment:Testing performed by : [facility], [address] [facility] [place], [address] Parainfluenza 2 RNA Not Detected Not Detected [facility] Comment:Testing performed by : [facility], [address] [facility] [place], [address] Parainfluenza 3 RNA Not Detected Not Detected [facility] Comment:Testing performed by : [facility], [address] [facility] [place], [address] Parainfluenza 4 RNA Not Detected Not Detected [facility] Comment:Testing performed by : [facility], [address] [facility] [place], [address] B. pertussis DNA Not Detected Not Detected [facility] Comment:Testing performed by : [facility], [address] [facility] [place], [address] B. parapertussis DNA Not Detected Not Detected [facility] Comment:Testing performed by : [facility], [address] [place] [address]., [address] C. pneumoniae DNA Not Detected Not Detected [facility] Comment:Testing performed by : [facility], [address] [place] [address], [address] M. pneumoniae DNA Not Detected Not Detected [facility] Comment:Testing performed by : [facility], [address] [facility] [place], [address] Nasopharyngeal 02/22/2024 3: 05 PM CDT 02/22/2024 4:56 PM CDT Narrative [facility] - 02/22/2024 5:56 PM CDT Is the Patient experiencing symptoms consistent with COVID?->Yes Surveillance testing for transplant patient?->No ??Interpretive Data The Rollbar FilmArray Respiratory Panel (RP2.1) assay is a [...] assay has FDA clearance for testing of [employer] swabs. ??The performance of additional specimen types has been assessed by the performing laboratory. ??The performance characteristics of this assay have been determined by [facility] Molecular Infectious Disease Laboratory. Current interpretive data was last revised on 22. us Corbin Cole MD LAB MICROBIOLOGY - G ENERAL ORDERABLES Final Result Performing Organization Address City/[facility]/ZIP Co de Phone Number ZULEMA [address] [place] [address] * Lactate (02/22/2024 2:27 PM CDT) Lactate 2.0 0.7 - 2.0 mmol/L Blood 02/22/2024 2:27 PM CDT 02/22/2024 2:31 PM CDT Corbin Cole MD LAB BLOOD ORDERABLES Final Result Performing Organization Address City/[facility] Phone Number ZULEMA [address] [address] * XR Chest PA Lateral 2 Views [...] D: ??02/22/2024 2:09 PM T: Report ID: [id number] Reading Location: ??[id number] Procedure Note Dallas Gonzalez MD - 02/22/2024 [...] Dallas Gonzalez M.D. KR T: Report ID: [id number] Reading Location: [id number] Corbin Cole MD IMG XR PROCEDURES Fi nal Result * (ABNORMAL) POCT glucose (02/22/2024 11:38 AM CDT) Glucose, POC 247(H) 70 - 199 mg/dL Glucose comment 1 Use This Result ZULEMA CHAVEZ Blood 02/22/2024 11:3 8 AM CDT 02/22/2024 11:38 AM CDT Corbin Cole MD LAB POCT ORDERABLES - DEVICE Final Result ZULEMA [address] [facility] Department [place] [address] * (ABNORMAL) Blood culture Blood (02/22/2024 10:26 AM CDT) Direct Specimen Exam Stain: Gram Positive Cocci in clusters Time to culture positivity (aerobic media): 36.2 hours Comment:Testing performed by : [facility], [address] [facility] [place]., [address] Report Final Report: Staphylococcus aureus For susceptibility results, refer to accession number [id number] on the blood culture from 02/22/2024 (.) ZULEMA CHAVEZ Comment:Testing performed by : [facility], [address] [facility] [place] [address] Organism STAPHYLOCOCCUS AUREUS ZULEMA CHAVEZ Blood 02/22/2024 [...] organism identification may be performed using the LY.comigene Gram-Positive Blood Culture Assay. This assay detects microbial DNA in positive blood culture broth via hybridization of target DNA to capture oligonucleotides on a microarray. This assay has been cleared by the [place] Food and Drug Administration and its performance characteristics have been verified by the [facility] Microbiology Laboratory. 5. ?For questions about this culture, contact the Microbiology Laboratory at [phone]. Interpretive data was last revised on 2020. Corbin Cole MD LAB MICROBIOLOGY - [facility] ORDERABLES Final Result ZULEMA CHAVEZ [address] [facility] Department [place] [address] * (ABNORMAL) Blood culture Blood (02/22/2024 10:21 AM CDT) Direct Specimen Exam Molecular Analysis: Staphylococcus aureus, methicillin susceptible (MSSA) detected by the Verigene Blood Culture Nucleic Acid Test. This test does not exclude the possibility of a mixed bacterial infection. Notification of: Staphylococcus aureus, methicillin susceptible (MSSA) called to and read back by: Gareth Suárez MT ([phone]) on 02/23/2024 17:09:44 by: Anjelica Zayas MT Comment:Testing performed by : [facility], [address] [place] [address], [id number] Direct Specimen Exam Stain: Gram Positive Cocci in clusters Time to culture positivity (aerobic media): 23.8 hours Notification of: Gram Positive Cocci in clusters called to and read back by: Irish Dee MT [phone] on 02/23/2024 13:58:10 by: Quiana Pierre MLS Test result called to and read back by [email or web address] on 02/23/2024 14:08:19 by [email or web address] ZULEMA Comment:Testing performed by : [facility], [address] [place] [address]., [id number] Report Final Report: Staphylococcus aureus Methicillin susceptible (MSSA) by penicillin binding protein 2a (PBP2a) testing. (.) ZULEMA Comment:Testing performed by : [facility], [address] [place] [address]., [id number] Organism STAPHYLOCOCCUS AUREUS ZULEMA Blood 02/22/2024 10:2 1 AM CDT 02/22/2024 1:27 PM CDT N[facility]ative [facility] - 02/29/2024 2:09 PM CDT [...] organism identification may be performed using the LY.comigene Gram-Positive Blood Culture Assay. This assay detects microbial DNA in positive blood culture broth via hybridization of target DNA to capture oligonucleotides on a microarray. This assay has been cleared by the [place] Food and Drug Administration and its performance characteristics have been verified by the [facility] Microbiology Laboratory. 5. ?For questions about this culture, contact the Microbiology Laboratory at [phone]. Interpretive data was last revised on 2020. [...] Susceptible Corbin Cole MD LAB MICROBIOLOGY - [facility] ORDERABLES Final Result ZULEMA [address] [facility] Department [place] [address] * POCT glucose (02/22/2024 7:46 AM CDT) [facility] Glucose, POC 191 70 - 199 mg/dL Glucose comment 1 Use This Result ZULEMA CHAVEZ Blood 02/22/2024 7:46 AM CDT 02/22/2024 7:46 AM CDT Corbin Cole MD LAB POCT ORDERABLES - DEVICE Final Result Performing Organization Address [facility] Co de Phone Number ZULEMA [facility] [place] [address] * eGFR (02/22/2024 5:18 AM CDT) [facility] eGFR >90 >=60 mL/min/1. 73 m2 Comment: [...] ORDERABLES Pilar l Result Performing Organization Address City/[facility]/ZIP Co de Phone Number ZULEMA [address] [facility] Department [place] [address] * (ABNORMAL) CBC without differential (02/22/2024 5:18 AM CDT) [facility] WBC 17.1(H) 3.8 - 9.9 K/cumm Hgb 9.6(L) 13.0 - 17.5 g/dL [facility] Hct 28.6(L) 38.9 - 50.3 % [facility] Plt 317 150 - 400 K/cumm [facility] MPV 10.0 9.1 - 12.3 fL [facility] RBC 2.73(L) 4.30 - 5.80 M/cumm [facility] MCV 104.8(H) 81.3 - 96.4 fL [facility] MCH 35.2(H) 27.1 - 33.3 pg [facility] MCHC 33.6 32.3 - 35.7 g/dL [facility] RDW CV 15.6(H) 11.1 - 14.9 % [facility] RDW SD 59.9(H) 35.7 - 48.1 fL [facility] NRBC abs 0.03(H) 0.00 - 0.01 K/cumm [facility] Blood 02/22/2024 5:18 AM CDT 02/22/2024 5:48 AM CDT Josefa Taylor NP LAB BLOOD ORDERABLES Pilar armas Result [facility] [address] [facility] Department [place] [address] * (ABNORMAL) Basic metabolic panel (02/22/2024 5:18 AM CDT) [facility] Sodium 134(L) 135 - 145 mmol/L Potassium, pl 3.7 3.3 - 4.9 mmol/L [facility] Chloride 97 97 - 110 mmol/L [facility] CO2 29 22 - 32 mmol/L [facility] Anion gap 8 2 - 15 mmol/L [facility] BUN 18 6 - 25 mg/dL [facility] Creatinine 0.75(L) 0.80 - 1.30 mg/dL [facility] Glucose 235(H) 70 - 199 mg/dL [facility] Comment: Interpretive Data Fasting glucose [...] ORDERABLES Pilar l Result Performing Organization Address [facility] Co de Phone Number LESLIE[address] [place] [address] * (ABNORMAL) POCT glucose (02/22/2024 4:24 AM CDT) Glucose, POC 279(H) 70 - 199 mg/dL Glucose comment 1 Use This Result [facility] Blood 02/22/2024 4:24 AM CDT 02/22/2024 4:24 AM CDT Result [facility] Corbin Cole MD LAB POCT ORDERABLES - DEVICE Final Result Performing Organization Address City/[facility] Co de Phone Number [address] [place] [address] * (ABNORMAL) POCT glucose (02/22/2024 1:58 AM CDT) Glucose, POC 272(H) 70 - 199 mg/dL Glucose comment 1 Use This Result [facility] Glucose comment 2 [facility] Not[facility] Blood 02/22/2024 1:58 AM CDT 02/22/2024 1:58 AM CDT Result [facility] Corbin Cole MD LAB POCT ORDERABLES - DEVICE Final Result Performing Organization Address [facility] Co de Phone Number ZULEMA [address] [place] [address] * (ABNORMAL) POCT glucose (02/22/2024 12:04 AM CDT) Glucose, POC 262(H) 70 - 199 mg/dL Glucose comment 1 Use This Result ZULEMA Blood 02/22/2024 12:0 4 AM CDT 02/22/2024 12:04 AM CDT Corbin Cole MD LAB POCT ORDERABLES - DEVICE Final Result Performing Organization Address [facility] Co de Phone Number ZULEMA [address] [address] * POCT glucose (02/21/2024 7:44 PM CDT) Glucose, POC 184 70 - 199 mg/dL Glucose comment 1 Use This Result [facility] Blood 02/21/2024 7:44 PM CDT 02/21/2024 7:44 PM CDT Corbin Cole MD LAB POCT ORDERABLES - DEVICE Final Result Performing Organization Address [facility] Co de Phone Number ZULEMA [address] [place] [address] * (ABNORMAL) POCT glucose (02/21/2024 6:26 PM CDT) Glucose, POC 217(H) 70 - 199 mg/dL Glucose comment 1 Use This Result ZULEMA Glucose comment 2 RN/MD Notified ZULEMA Blood 02/21/2024 6:26 PM CDT 02/21/2024 6:26 PM CDT Corbin Cole MD LAB POCT ORDERABLES - DEVICE Final Result Performing Organization Address [facility] de Phone Number ZULEMA [address] [place] [address] * POCT glucose (02/21/2024 4:04 PM CDT) [facility] Glucose, POC 118 70 - 199 mg/dL Glucose comment 1 Use This Result [facility] Glucose comment 2 RN/MD Notified [facility] Blood 02/21/2024 4:04 PM CDT 02/21/2024 4:04 PM CDT Corbin Cole MD LAB POCT ORDERABLES - DEVICE Final Result Performing Organization Address [facility] de Phone Number ZULEMA [address] [place] [address] * (ABNORMAL) POCT glucose (02/21/2024 11:27 AM CDT) [facility] Glucose, POC 330(H) 70 - 199 mg/dL Blood 02/21/2024 11:2 7 AM CDT 02/21/2024 11:27 AM CDT Corbin Cole MD LAB POCT ORDERABLES - DEVICE Final Result Performing Organization Address [facility] de Phone Number LESLIE[address] [place] [address] * eGFR (02/21/2024 8:37 AM CDT) [facility] eGFR >90 >=60 mL/min/1. 73 m2 Comment: [...] CDT 02/21/2024 8:52 AM CDT Josefa Taylor [employer] PROGRAM[employer] LAB BLOOD ORDERABLES Pilar armas Result [facility] [address] [facility] Department [place] [address] * (ABNORMAL) CBC without differential (02/21/2024 8:37 AM CDT) Pathologist [facility] WBC 9.6 3.8 - 9.9 K/cumm Hgb 12.3(L) 13.0 - 17.5 g/dL [facility] Hct 37.7(L) 38.9 - 50.3 % [facility] Plt 392 150 - 400 K/cumm [facility] MPV 9.9 9.1 - 12.3 fL [facility] RBC 3.50(L) 4.30 - 5.80 M/cumm [facility] MCV 107.7(H) 81.3 - 96.4 fL [facility] MCH 35.1(H) 27.1 - 33.3 pg [facility] MCHC 32.6 32.3 - 35.7 g/dL [facility] RDW CV 15.5(H) 11.1 - 14.9 % [facility] RDW SD 61.1(H) 35.7 - 48.1 fL [facility] NRBC abs 0.00 0.00 - 0.01 K/cumm [facility] Blood 02/21/2024 8:37 AM CDT 02/21/2024 8:52 AM CDT [facility] LAB BLOOD ORDERABLES Pilar l Result Performing Organization Address [facility] Co de Phone Number [facility] [address] [facility] Department [place] [address] * (ABNORMAL) Basic metabolic panel (02/21/2024 8:37 AM CDT) Pathologist [facility] Sodium 137 135 - 145 mmol/L Potassium, pl 4.0 3.3 - 4.9 mmol/L [facility] Chloride 98 97 - 110 mmol/L [facility] CO2 29 22 - 32 mmol/L [facility] Anion gap 10 2 - 15 mmol/L [facility] BUN 15 6 - 25 mg/dL [facility] Creatinine 0.54(L) 0.80 - 1.30 mg/dL [facility] Glucose 205(H) 70 - 199 mg/dL [facility] Comment: Interpretive Data Fasting glucose [...] 2022. Calcium 8.9 8.5 - 10.3 mg/dL [facility] Blood 02/21/2024 8:37 AM CDT 02/21/2024 8:52 AM CDT [facility] BLOOD ORDERABLES Pilar l Result Performing Organization Address [facility]/ZIP Co de Phone Number [address] [address] * Magnesium (02/21/2024 8:37 AM CDT) Pathologist [facility] Magnesium 2.1 1.4 - 2.5 mg/dL Blood 02/21/2024 8:37 AM CDT 02/21/2024 8:52 AM CDT Josefa Taylor NP LAB BLOOD ORDERABLES Pilar l Result Performing Organization Address [facility] Co de Phone Number [address] [address] * POCT glucose (02/21/2024 8:01 AM CDT) [facility] Glucose, POC 174 70 - 199 mg/dL Blood 02/21/2024 8:01 AM CDT 02/21/2024 8:01 AM CDT Corbin Cole MD LAB POCT ORDERABLES - DEVICE Final Result Performing Organization Address [facility] de Phone Number [address] [address] * (ABNORMAL) POCT glucose (02/20/2024 8:39 PM CDT) [facility] Glucose, POC 271(H) 70 - 199 mg/dL Glucose comment 1 Use This Result [facility] Glucose comment 2 RN/MD Notified [facility] Blood 02/20/2024 8:39 PM CDT 02/20/2024 8:39 PM CDT Pacheco Quintanilla MD LAB POCT ORDERABLES - DEV ICE Final Result Performing Organization Address [facility] Co de Phone Number [address] [address] * (ABNORMAL) POCT glucose (02/20/2024 7:25 PM CDT) Glucose, POC 203(H) 70 - 199 mg/dL Glucose comment 1 Use This Result [facility] Glucose comment 2 RN/MD Notified ZULEMA Blood 02/20/2024 7:25 PM CDT 02/20/2024 7:25 PM CDT Pacheco Quintanilla MD LAB POCT ORDERABLES - DEV ICE Final Result Performing Organization Address City/[facility] Co de Phone Number LESLIE[address] Department [place] [address] * POCT glucose (02/20/2024 6:34 PM CDT) Glucose, POC 181 70 - 199 mg/dL Blood 02/20/2024 6:34 PM CDT 02/20/2024 6:34 PM CDT Pacheco Quintanilla MD LAB POCT ORDERABLES - DEV ICE Final Result Performing Organization Address [facility] Co de Phone Number [address] [place] [address] * Surgical pathology (02/20/2024 12:58 PM CDT) Tissue (Gastric/Stomach biopsy) 02/20/2024 12:58 PM CDT Tissue (Esophageal biopsy) 02/20/2024 12:59 PM CDT Narrative PATHOLOGY [facility] - 02/27/2024 12:23 PM CDT [facility] Department of Pathology [address] [place] [address] ?? Note to Patients: ??This report may [...] 58) Gender: ??M Address: ??[address] [place], [place] [address] [facility] #: [id number] Service: Medical Location: Patient Type: B INPATIENT [...] 0. ?? jjmhb/02/20/2024 14:23 DOMITILA Conrad, PA ([facility]) Microscopic slide review and interpretation for this case was performed at [facility], Department of Surgical Pathology, [address] [facility], [place] [id number], ??[place], [place] ??[address] ?? CLIA # [id number] The Herpes Simplex Virus I test was performed at [facility] Department of Surgical Pathology, [address] [place], [place] ??[address]. The Herpes Simplex Virus II test was performed at [facility] Department of Surgical Pathology, [address] [place], [place] ??[address]. The Cytomegalovirus test was performed at [facility], Department of Surgical Pathology, [address] [place], [place] ??[address]. us Gee Mcdaniel MD LAB PATHOLO GY ORDERABLES Final Result Performing Organization Address City/[facility]/ZIP Co de Phone Number [facility] * POCT glucose (02/20/2024 12:43 PM CDT) Glucose, POC 126 70 - 199 mg/dL Blood 02/20/2024 12:4 3 PM CDT 02/20/2024 12:43 PM CDT us Pacheco Quintanilla MD LAB POCT ORDERABLES - DEV ICE Final Result Performing Organization Address City/[facility]/ZIP Co de Phone Number [facility] [address] [facility] Department [place] [address] * EGD (02/20/2024 12:37 PM CDT) Anatomical Region Laterality Modality Other Narrative Procedure Note Gee Mcdaniel MD - 02/20/2024 12:37 PM CDT [facility] GI ENDOSCOPY Patient Name: Bri Jones Procedure Date: 02/20/2024 12:37 PM Date of : 1965 Admit Type: Inpatient Age: 58 Gender: Male Attending MD: Gee Ravi M.D. Room: [facility] ENDOSCOPY ROOM [facility] Note Status: Finalized Procedure: Upper GI endoscopy [...] On: 02/20/2024 12:37 PM Recognized by the [employer] for promoting quality [...] LAB BLOOD ORDERABLES Pilar armas Result ZULEMA [address] [facility] Department [place] [address] * eGFR (02/20/2024 11:39 AM [...] ORDERABLES Pilar l Result Performing Organization Address [facility] de Phone Number [place] [address] [facility] [place] [address] * T4, free (02/20/2024 11:39 AM CDT) Free T4 1.13 0.90 - 1.70 ng/dL Blood 02/20/2024 11:3 9 AM CDT 02/20/2024 11:44 AM CDT Narrative ZULEMA - 02/20/2024 1:50 PM CDT This test was reflexed from a TSH result. [facility] LAB BLOOD ORDERABLES Pilar l Result Performing Organization Address [facility] de Phone Number [address] [place] [address] * (ABNORMAL) Thyroid Function [place] (02/20/2024 11:39 AM CDT) TSH 0.17(L) 0.30 - 4.20 mcIUnit/mL Blood 02/20/2024 11:3 9 AM CDT 02/20/2024 11:44 AM CDT Josefaflori Taylor [employer] PROGRAMMER LAB BLOOD ORDERABLES Pilar l Result Performing Organization Address [facility] de Phone Number [facility] [address] [address] * (ABNORMAL) Hemoglobin A1c (02/20/2024 11:39 AM CDT) Pathologist [facility] Hgb A1C 6.7(H) 4.0 - 5.6 % Estimated Average Glucose 146 mg/dL [facility] Comment: The ADA recommends reporting an estimated Average Glucose (eAG) with all Hemoglobin A1c results using the equation derived from a study of 507 normal and diabetic adults. ??Minority populations were underrepresented and children were not included. ?? (Diabetes Care 31:8467-1205, 2008). ??The eAG is not equivalent to a fasting glucose. Blood 02/20/2024 11:3 9 AM CDT 02/20/2024 11:44 AM CDT Josefa Taylor NP LAB BLOOD ORDERABLES Pilar l Result Performing Organization Address [facility] de Phone Number [address] [address] * (ABNORMAL) CBC without differential (02/20/2024 11:39 AM CDT) [facility] WBC 11.9(H) 3.8 - 9.9 K/cumm Hgb 12.0(L) 13.0 - 17.5 g/dL [facility] Hct 35.8(L) 38.9 - 50.3 % [facility] Plt 359 150 - 400 K/cumm [facility] MPV 10.0 9.1 - 12.3 fL [facility] RBC 3.41(L) 4.30 - 5.80 M/cumm [facility] MCV 105.0(H) 81.3 - 96.4 fL [facility] MCH 35.2(H) 27.1 - 33.3 pg [facility] MCHC 33.5 32.3 - 35.7 g/dL [facility] RDW CV 16.1(H) 11.1 - 14.9 % [facility] RDW SD 62.1(H) 35.7 - 48.1 fL [facility] NRBC abs 0.02(H) 0.00 - 0.01 K/cumm [facility] Blood 02/20/2024 11:3 9 AM CDT 02/20/2024 11:44 AM CDT Josefa Taylor NP LAB BLOOD ORDERABLES Pilar armas Result [facility] [address] [facility] Department [place] [address] * (ABNORMAL) Basic metabolic panel (02/20/2024 11:39 AM CDT) Sodium 138 135 - 145 mmol/L Potassium, pl 4.0 3.3 - 4.9 mmol/L [facility] Chloride 99 97 - 110 mmol/L [facility] CO2 31 22 - 32 mmol/L [facility] Anion gap 8 2 - 15 mmol/L [facility] BUN 17 6 - 25 mg/dL [facility] Creatinine 0.64(L) 0.80 - 1.30 mg/dL [facility] Glucose 138 70 - 199 mg/dL [facility] Comment: Interpretive Data Fasting glucose [...] 2022. Calcium 8.6 8.5 - 10.3 mg/dL [facility] Blood 02/20/2024 11:3 9 AM CDT 02/20/2024 11:44 AM CDT Josefaflori Taylor [employer] PROGRAMMER LAB BLOOD ORDERABLES Pilar l Result Performing Organization Address [facility] Co de Phone Number ZULEMA [address] [address] * Magnesium (02/20/2024 11:39 AM CDT) Magnesium 1.9 1.4 - 2.5 mg/dL Blood 02/20/2024 11:3 9 AM CDT 02/20/2024 11:44 AM CDT Josefaflori DewittBrandon NP LAB BLOOD ORDERABLES Pilar l Result Performing Organization Address [facility] Phone Number LES[address] [address] documented in this encounter Visit Diagnoses Diagnosis [...] 2.5 mg, nebulization, Every 6 hours PRN (occ therapist), wheezing, Starting on Angy 03/05/24 at 1342 Given 03/05/2024 7:51 PM CDT 2.5 mg albuterol HFA (PROVENTIL HFA,VENTOLIN HFA,PROAIR HFA) 90 mcg/actuation inhaler 2 puff 2 puff, inhalation, Every 6 hours while awake (occ therapist), First dose (after last modification) on [...] puff 2 puff, inhalation, 2 times daily (occ therapist), First dose on Sat02/20/24 at 2000, [...] Call MD for each episode of hypoglycemia. FLATWORK TIER STATES GLUTOSE-15 CONTAINS GLUCOSE 40% W/W (50% [...] 03/06/2024 8:38 AM CDT 40 mg peg [id number]-[id number]-lpfenxtz (ARTIFICAL TEARS) 1-0.2-0.2 % ophthalmic solution 1 [...] inhaler 2 puff 2 puff, inhalation, Daily (occ therapist), First dose on Sat02/21/24 at 0900, [...] coma, with long-term current use of insulin ([facility]) 1 Device 3 (three) times a [...] unit capsuleIndications:AML (acute myeloid leukemia) in remission ([facility]),H/O allogeneic bone marrow transplant ([facility]),Vitamin D deficiency TAKE 1 CAPSULE BY MOUTH ONCE A WEEK DIRECTED Error 10/24/2021 02/20/2024 gabapentin (NEURONTIN) 300 mg capsuleIndications:AML (acute myeloid leukemia) in remission ([facility]) TAKE ONE CAPSULE BY MOUTH FOUR TIMES DAILY @2IZ-7CO-8XO-9PM Error 05/20/2023 02/20/2024 insulin glargine (LANTUS, BASAGLAR) 100 unit/mL (3 mL) pen for injectionIndications: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 TDD OF 35 UNITS. 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),Vwsjy-ihnpmn-bfyk disease (HCC) Take 1 tablet (10 mg total) by mouth daily Error 06/26/2022 02/20/2024 mupirocin (BACTROBAN) 2 % ointmentIndications:Loca l skin infection Apply topically 3 (three) times a day Error 05/22/2023 02/20/2024 mycophenolate mofetil (CELLCEPT) 500 mg tabletIndications:AML (acute myeloid leukemia) in remission (HCC),Jxwjz-wzskkj-bylr disease (HCC) TAKE TWO TABLETS BY MOUTH [...] by mouth 4 (four) times a day @1LF-9OI-3JA-9PM 4 acyclovir (ZOVIRAX) 400 mg tablet Take [...] puff, inhalation, Every 6 hours while awake (occ therapist), First dose (after last modification) on Sat03/03/24 at 0900 0830 (Given - Provider: Page Bunch, NUB CARD TENDER)1340 (Not Given - Provider: Page Bunch, NUB CARD TENDER - Reason: Contraindicated)1950 (Not Given - Provider: Anaid Marsh, NUB CARD TENDER - Reason: Patient/family refused - Comment: Pt wanted the albuterol neb because he said it worked better for him) 0810 (Given - Provider: Page Bunch, NUB CARD TENDER)1351 (Given - Provider: Page Bunch, NUB CARD TENDER)2103 (Given - Provider: Tasia Abreu, HORTICULTURAL NURSERY ASSISTANT) 0702 (Given - Provider: Pat Busby, NUB CARD TENDER)1412 (Given - Provider: Pat Busby, NUB CARD TENDER) atorvastatin (LIPITOR) tablet 40 mg 40 mg, [...] 1) 2 puff, inhalation, 2 times daily (occ therapist), First dose on Sat02/20/24 at 2000, Rinse mouth with water after use. Do not swallow. 0825 (Given - Provider: Page Bunch, NUB CARD TENDER)1950 (Given - Provider: Anaid Marsh NUB CARD TENDER) 0810 (Given - Provider: Page Bunch, NUB CARD TENDER)2103 (Given - Provider: Tasia Abreu, HORTICULTURAL NURSERY ASSISTANT) 0703 (Given - Provider: Pat Busby, NUB CARD TENDER) cefepime (MAXIPIME) 1,000 mg in sodium chloride [...] times daily with meals, First dose on [facility] 02/29/24 at 0815, Blood glucose mg/dL: [...] Albright, BECKI) 2048 (Given - Provider: Bonnie Wikc, BECKI) mycophenolate mofetil (CELLCEPT) tablet 1,000 mg [...] puff(Linked Group 1) 2 puff, inhalation, Daily (occ therapist), First dose on Sat02/21/24 at 0900, Trelegy subs to Symbicort + Spiriva 0830 (Given - Provider: Page Bunch, NUB CARD TENDER) 0810 (Given - Provider: Page Bunch, NUB CARD TENDER) 0703 (Given - Provider: Pat Busby, NUB CARD TENDER) voriCONAZOLE (VFEND) tablet 200 mg 200 mg, [...] 2.5 mg, nebulization, Every 4 hours PRN (occ therapist), wheezing, Starting on 03/02/24 at 2100 1338 (Given - Provider: Page Bunch, NUB CARD TENDER) albuterol 2.5 mg/0.5 mL nebulizer solution 2.5 mg 2.5 mg, nebulization, Every 6 hours PRN (occ therapist), wheezing, Starting on Sat03/05/24 at 1342 1951 (Given - Provider: Anaid Marsh, NUB CARD TENDER) Carrier Fluids for Secondary Infusion - 0.9% [...] Call MD for each episode of hypoglycemia. FLATWORK TIER STATES GLUTOSE-15 CONTAINS GLUCOSE 40% W/W (50% [...] at 1126, Indications: Nausea and Vomiting peg 943-zmzmsujcqvrr-ogxwzdve (ARTIFICAL TEARS) 1-0.2-0.2 % ophthalmic solution 1 [...] med 2 puff, inhalation, 2 times daily (occ therapist), First dose on Sat02/20/24 at 2000, Rinse mouth with water after use. Do not swallow. And tiotropium bromide (SPIRIVA RESPIMAT) 2.5 mcg/actuation inhaler 2 puffJump to med 2 puff, inhalation, Daily (occ therapist), First dose on Sat02/21/24 at 0900, [...] Call MD for each episode of hypoglycemia. FLATWORK TIER STATES GLUTOSE-15 CONTAINS GLUCOSE 40% W/W (50% [...] free injection 10-20 mg 1 02/29/2024 peg 647-fcmwiqsohndh-mefwptj n (ARTIFICAL TEARS) 1-0.2-0.2 % ophthalmic solution [...] ative free injection 25 mcg 1 02/20/2024 cysvjccsebc-eanpdrbeu-stznud er (TRELEGY ELLIPTA) 200-62.5-25 mcg inhaler 1 [...] documented as of this encounter Care Teams Travel Professional Relationship Specialty Start Date End Date Gama Lindsay DO PCP - General Internal Medicine 02/02/21 Josué Del Valle MD PhD Medical Oncologist/Hospital Receptionist Medical Oncology 08/26/19 Cal Carranza DO [address] [place] [address] Receiving Coordinator Internal Medicine 06/12/23 Halie Khan MD [address] [place] [address] Nub Card Tender Critical Care Med 06/12/23 documented as of this encounter
--- OUTSIDE RECORDS SUMMARY | 2024-11-22 12:54 | XMS_ITS | Encounter Summary ---
Author Organization [facility] Address [address] [facility] [address] [place] [address] Phone Care Team Providers Care Brazer Crawler Torch Name Role Phone Josué Del Valle MD PhD Unavailable [phone] Kirt Lindsay DO Primary Care Provider [phone] Cal Carranza DO Unavailable [phone] Halie Khan MD Unavailable [phone] Encounter Details Date Type Department Care Team (Latest Contact Info) Description 02/10/2024 Orders Only [facility] Endocrinology Metabolism and Lipid [address] [facility] Advanced Medicine 13th [place] [address] [place] [address] Bela Orellana, BECKI Type 2 [...] on file Legal Sex Male 10:48 AM ORACLE SOLUTIONS 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 Gender Identity Not on file Sexual Orientation Not on file documented as of this encounter Ordered Prescriptions Prescription Sig Dispense Quantity Refills Last Filled Start Date End Date flash glucose sensor (FreeStyle Evaristo 2 Sensor) kitIndications:Type 2 diabetes mellitus with hyperosmolarity without coma, with long-term current use of insulin ([facility]) Change sensor every 14 days 2 kit 02/10/2024 documented in this encounter Plan of Treatment Not on file documented as of this encounter Visit Diagnoses Diagnosis Type 2 diabetes mellitus with hyperosmolarity without coma, with long-term current use of insulin ([facility])- Primary Type 2 diabetes mellitus without complication, with long-term current use of insulin ([facility]) ([facility]) documented in this encounter Discontinued Medications Medication Sig Discontinue Reason Start Date End Da te flash glucose sensor (FreeStyle Evaristo 2 Sensor) kit CHANGE SENSOR EVERY 14 DAYS Reorder 12/20/2023 02/10/2024 documented as of this encounter Care Teams Brazer Crawler Torch Relationship Specialty Start Date End Date Kirt Lindsay DO PCP - General Internal Medicine 02/02/21 Josué Del Valle MD PhD Medical Oncologist/Patient Access Director Medical Oncology 08/26/19 Cal Carranza DO [address] [address] Manager Of Patient Internal Medicine 06/12/23 Halie Khan MD [address] [address] Cap Blocker Critical Care Med 06/12/23 documented as of this encounter
--- OUTSIDE RECORDS SUMMARY | 2024-11-22 12:54 | XMS_ITS | Encounter Summary ---
Author Organization [facility] Address [address] [place] [address] Phone Care Team Providers Care Milling Supervisor Name Role Phone Josué Del Valle MD PhD Unavailable [phone] Kirt Lindsay DO Primary Care Provider [phone] Cal Carranza DO Unavailable [phone] Halie Khan MD Unavailable [phone] Reason for Visit * Reason Onset Date Comments sensor refill 12/19/2023 Encounter Details Date Type Department Care Team (Late st Contact Info) Description 12/19/2023 Telephone [facility] Endocrinology Metabolism and Lipid [address] [facility] 5th [place] [address] [place] [address] Bela Orellana, BECKI sensor refill [...] on file Legal Sex Male 10:48 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 [place] MERCHANDISER TECHNICIAN * Telephone Encounter - Bela Orellana RN - 12/19/2023 2:22 PM RETAIL MERCHANDISER TECHNICIAN Patient called needing freestyle pierce sensor refills. Current order is monthly supplies for a year, so I let him know he should be able to refill his sensors through [facility] until February. Scheduledhim for a follow up appointment on Saturday 12/23 while on the phone, he will contact [employer] to arrangetransport and let us know if he has any issues with the refills or getting to the appointment. [place] MERCHANDISER TECHNICIAN documented in this encounter Plan of Treatment Not on file documented as of this encounter Visit Diagnoses Not on filedocumented in this encounter Care Teams Milling Supervisor Relationship Specialty Start Date End Date Kirt Lindsay DO PCP - General Internal Medicine 02/02/21 Josué Del Valle MD PhD Medical Oncologist/Online Merchandising Coordinator Medical Oncology 08/26/19 Cal Carranza DO [address] [place] [address] Tower Technician Internal Medicine 06/12/23 Halie Khan MD [address] [place], [place] [id number] Precipitate Washer Critical Care Med 06/12/23 documented as of this encounter
--- OUTSIDE RECORDS SUMMARY | 2024-11-22 12:54 | XMS_ITS | Encounter Summary ---
Author Organization [facility] Address [address] [place] [address] Phone Care Team Providers Care Speech And Language Clinician Name Role Phone Josué Del Valle MD PhD Unavailable [phone] Kirt Lindsay DO Primary Care Provider [phone] Cal Carranza DO Unavailable [phone] Halie Khan MD Unavailable [phone] Reason for Visit * Reason Onset Date Comments SWO 10/16/2023 CGM and Supplies -Free Style Evaristo 2 Encounter Details Date Type Department Care Team (Late st Contact Info) Description 10/16/2023 Telephone [facility] Endocrinology Metabolism and Lipid [address] [facility] Advanced Medicine 13th [place] [address] [place] [address] Arleen Camejo RMA SWO (CGM [...] file Legal Sex Male 10:48 AM PRODUCTION SUPPORT SPECIALIST Gender Identity Not on file Sexual Orientation Not on file documented as of this encounter Miscellaneous Notes * Telephone Encounter - Arleen aCmejo RMA - 10/16/2023 10:10 AM CST Completed form faxed to [phone]. See Media. To: Recipient at [phone] Subject: LEONARD Jones Result: The transmission was successful. Explanation: All Pages Ok Pages Sent: 2 Connect Time: 1 minutes, 45 seconds Transmit Time: 10/16/2023 09:52 Transfer Rate: [id number] Status Code: 0000 Retry Count: 0 Job Id: [id number] Unique Id: [id number] Fax Line: 4 Fax Supplier Engineer: [id number] UCTION SUPPORT SPECIALIST documented in this encounter Plan of Treatment Not on file documented as of this encounter Visit Diagnoses Not on filedocumented in this encounter Care Teams Speech And Language Clinician Relationship Specialty Start Date End Date Kirt Lindsay DO PCP - General Internal Medicine 02/02/21 Josué eDl Valle MD PhD Medical Oncologist/Commercial Litigation Paralegal Medical Oncology 08/26/19 Cal Carranza DO [address] [place] [address] Castables Worker Internal Medicine 06/12/23 Halie Khan MD [address] [place], [place] [id number] Regional Forester Critical Care Med 06/12/23 documented as of this encounter
--- OUTSIDE RECORDS SUMMARY | 2024-11-22 12:54 | XMS_ITS | Encounter Summary ---
Author Organization [facility] Address [address] [place] [address] Phone Care Team Providers Care Expanding Machine Operator Name Role Phone Josué Del Valle MD PhD Unavailable [phone] Kirt Lindsay DO Primary Care Provider [phone] Cal Carranza DO Unavailable [phone] Halie Khan MD Unavailable Encounter Details Date Type Department Care Team (Late st Contact Info) Description 08/07/2023 Telephone [facility] Oncology [address] [facility] 7th [place] [address] [place] [address] Irina Conrad Social History Tobacco [...] on file Legal Sex Male 10:48 AM LAUNDRY AID Gender Identity Not on file Sexual Orientation [...] on filedocumented in this encounter Care Teams Expanding Machine Operator Relationship Specialty Start Date End Date Kirt Lindsay DO PCP - General Internal Medicine 02/02/21 Josué Del Valle MD PhD Medical Oncologist/Assembler Engine Medical Oncology 08/26/19 Cal Carranza DO [address] [place] [address] Clinical Dietician Internal Medicine 06/12/23 Halie Khan MD [address] [place] [address] Client Support Associate Critical Care Med 06/12/23 documented as of this encounter
--- OUTSIDE RECORDS SUMMARY | 2024-11-22 12:54 | XMS_ITS | Encounter Summary ---
Author Organization [facility] Address [address] [place] [address] Phone Care Team Providers Care Fruit Grading Supervisor Name Role Phone Josué Del Valle MD PhD Unavailable [phone] Kirt Lindsay DO Primary Care Provider [phone] Cal Carranza DO Unavailable [phone] Halie Khan MD Unavailable [phone] Encounter Details Date Type Department Care Team (Late st Contact Info) Description 08/06/2023 Telephone [facility] Bone Marrow Transplant [address] [facility] Advanced Medicine 7th [address], [place] [address] Josué Del Valle MD PhD [address] DIV IM BONE MARROW TRANSPLANT, [address] [place] [address] Social History Tobacco Use Types [...] on file Legal Sex Male 10:48 AM GARNISHER Gender Identity Not on file Sexual Orientation Not on file documented as of this encounter Miscellaneous Notes * Telephone Encounter - Josué Rice RN - 08/06/2023 12:51 PM CDT Refer to other encounter for note * Telephone Encounter - Marisa Mcdermott - 08/06/2023 12:47 PM CDT Patient calling back as he can get a ride to come in to [facility] today and is asking what time he shouldcome in and where is he to go. documented in this encounter Plan of Treatment Not on file documented as of this encounter Visit Diagnoses Not on filedocumented in this encounter Care Teams Fruit Grading Supervisor Relationship Specialty Start Date End Date Kirt Lindsay DO PCP - General Internal Medicine 02/02/21 Josué Del Valle MD PhD Medical Oncologist/Stacker Driver Medical Oncology 08/26/19 Cal Carranza DO [address] [place], [place] [id number] Shank Rander Internal Medicine 06/12/23 Halie Khan MD [address] [place], [place] [id number] Coffee Sommelier Critical Care Med 06/12/23 documented as of this encounter
--- OUTSIDE RECORDS SUMMARY | 2024-11-22 12:54 | XMS_ITS | Encounter Summary ---
Author Organization [facility] Healthcare Address [address] [place] [address] Care Team Providers Care Gaming Investigator Name Role Phone Josué Del Valle MD PhD Unavailable [phone] Kirt Lindsay DO Primary Care Provider [phone] Cal Carranza DO Unavailable [phone] Halie Khan MD Unavailable [phone] Encounter Details Date Type Department Care Team (Latest Contact Info) Description 06/12/2023 1:50 PM CDT - 06/12/2023 11:59 PM CDT Hospital Encounter [facility] [address] [place] [phone] 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) [...] file Legal Sex Male 10:48 AM CROP PULLER Gender Identity Not on file Sexual Orientation Not on file documented as of this encounter Medications at Time of Discharge cholecalciferol (VITAMIN D-3) 25 mcg (1,000 unit) tablet Take 2 tablets (2,000 Units total) by mouth every morning 11/13/20 21 flash glucose scanning reader (WEEZEVENT Evaristo 2 [place]) [facility] Use to test blood [...] ic obstructive pulmonary disease, unspecified COPD type ([facility]) Inhale 2 puffs every 6 (six) [...] of insulin ([facility]),Qcvqz-xuwaag-wvrz disease (HCC),H/O allogeneic bone marrow transplant (HCC),Pure [...] unit capsuleIndications:AML (acute myeloid leukemia) in remission ([facility]),H/O allogeneic bone marrow transplant ([facility]),Vitamin D deficiency TAKE 1 CAPSULE BY MOUTH ONCE A WEEK DIRECTED 12 capsule 3 10/24/20 21 024 flash glucose sensor (FreeStyle Evaristo 2 Sensor) kit Change sensor every 14 days 2 kit 11 03/17/20 23 024 aqyyxwyaenl-vjnswtzhb-wb lanter (Trelegy Ellipta) 200-62.5-25 mcg inhalerIndications:Chron ic obstructive pulmonary disease, unspecified COPD type ([facility]) Inhale 1 puff daily 60 each 3 05/02/20 23 023 furosemide (LASIX) 20 mg tabletIndications:Type 2 diabetes mellitus with hyperosmolarity without coma, with long-term current use of insulin ([facility]) Take 1 tablet (20 mg total) by mouth daily As needed. 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[facility]) Take 1 tablet (10 mg total) by mouth daily 90 tablet 1 06/26/20 22 024 mupirocin (BACTROBAN) 2 % ointmentIndications:Loca l skin infection Apply topically 3 (three) times a day 22 g 05/22/20 23 024 mycophenolate mofetil (CELLCEPT) 500 mg tabletIndications:AML (acute myeloid leukemia) in remission ([facility]),Rzcmj-rfvttg-flqv disease (HCC) TAKE 2 TABLETS(1000 MG) BY [...] c obstructive pulmonary disease, unspecified COPD type ([facility]) Take 40mg (4 tablets) daily for [...] was last reviewed 2021. Testing performed by: [facility], [address] [place] [phone] Blood 06/12/2023 10:2 3 AM CDT 06/12/2023 10:26 AM CDT us Josué Del Valle MD PhD LAB BLOOD ORDERABLES Fin al Result ZULEMA DENT [facility] Department [place] [address] * (ABNORMAL) Differential, auto (06/12/2023 10:23 AM CDT) Neutrophil abs 7.0(H) 1.8 - 6.6 K/cumm [facility] Comment:Testing performed by : [facility], [address] [place] [phone] Lymphocyte abs 2.1 1.2 - 3.3 K/cumm [facility] Comment:Testing performed by : [facility], [address] [place] [phone] Monocyte abs 0.4 0.2 - 1.2 K/cumm [facility] Comment:Testing performed by : [facility], [address] [place] [phone] Eosinophil abs 0.0 0.0 - 0.5 K/cumm [facility] Comment:Testing performed by : [facility], [address] [place] [phone] Basophil abs 0.0 0.0 - 0.2 K/cumm [facility] Comment:Testing performed by : [address] [phone] Neutrophil pct 72.9 % [facility] Comment: Interpretive Data Percent cell count reference ranges are not reported, since discordance with absolute values may lead to misinterpretation of CBC data. Current Interpretive Data was last revised on 2018. Testing performed by: [facility], [address] [place] [phone] Lymphocyte pct 22.2 % [facility] Comment: Interpretive Data Percent cell count reference ranges are not reported, since discordance with absolute values may lead to misinterpretation of CBC data. Current Interpretive Data was last revised on 2018. Testing performed by: [facility], [address] [place] [phone] Monocyte pct 4.4 % [facility] Comment:Testing performed by : [facility], [address] [place] [phone] Eosinophil pct 0.0 % [facility] Comment:Testing performed by : [facility], [address] [place] [phone] Basophil pct 0.5 % [facility] Comment:Testing performed by : [address] [phone] Blood 06/12/2023 10:2 3 AM CDT 06/12/2023 10:26 AM CDT Josué Del Valle MD PhD LAB BLOOD ORDERABLES Fin al Result Performing Organization Address [facility] Co de Phone Number [facility] Department [place] [address] * Lactate dehydrogenase (LD) (06/12/2023 10:23 AM CDT) [facility] Lactate dehydrogenase (LDH) 222 100 - 250 Units/L [facility] Comment:Testing performed by : [facility], [address] [place] [phone] Blood 06/12/2023 10:2 3 AM CDT 06/12/2023 10:26 AM CDT Josué Del Valle MD PhD LAB BLOOD ORDERABLES Fin al Result Performing Organization Address [facility] de Phone Number [facility] Department [place] [address] * (ABNORMAL) CBC with auto differential (06/12/2023 10:23 AM CDT) [facility] WBC 9.5 3.8 - 9.8 K/cumm [facility] Comment:Testing performed by : [facility], [address] [place] [phone] Hgb 14.3 13.8 - 17.2 g/dL [facility] Comment:Testing performed by : [facility], [address] [place] [phone] Hct 42.0 40.7 - 50.3 % [facility] Comment:Testing performed by : [facility], [address] [place] [phone] Plt 349 140 - 440 K/cumm [facility] Comment:Testing performed by : [facility], [address] [place] [phone] MPV 7.6 6.8 - 10.4 fL [facility] Comment:Testing performed by : [facility], [address] [place] [phone] RBC 3.99(L) 4.50 - 5.70 M/cumm ZULEMA DENT Comment:Testing performed by : [facility], [address] [place], [place] [phone] MCV 105.4(H) 80.0 - 97.6 fL [facility] Comment:Testing performed by : [facility], [address] [place] [phone] MCH 36.0(H) 26.7 - 33.7 pg [facility] Comment:Testing performed by : [facility], [address] [place] [phone] MCHC 34.2 32.7 - 35.5 g/dL [facility] Comment:Testing performed by : [facility], [address] [place] [phone] RDW CV 13.3 11.8 - 14.6 % [facility] Comment:Testing performed by : [facility], [address] [place] [phone] NRBC abs 0.01 0.00 - 0.01 K/cumm [facility] Comment:Testing performed by : [facility], [address] [place] [phone] Blood 06/12/2023 10:2 3 AM CDT 06/12/2023 10:26 AM CDT Josué Del Valle MD PhD LAB BLOOD ORDERABLES Fin al Result [facility] Department [place] [address] * (ABNORMAL) Comprehensive metabolic panel (06/12/2023 10:23 AM CDT) Sodium 141 135 - 145 mmol/L [facility] Comment:Testing performed by : [facility], [address] [place] [phone] Potassium, pl 4.7 3.3 - 4.9 mmol/L ZULEMA DENT Comment:Testing performed by : [facility], [address] [place] [phone] Chloride 99 97 - 110 mmol/L [facility] Comment:Testing performed by : [facility], [address] [place] [phone] CO2 27 22 - 32 mmol/L [facility] Comment:Testing performed by : [facility], [address] [place] [phone] Anion gap 15 2 - 15 mmol/L [facility] Comment:Testing performed by : [facility], [address] [place] [phone] BUN 16 6 - 25 mg/dL [facility] Comment:Testing performed by : [facility], [address] [place] [phone] Creatinine 0.87 0.80 - 1.30 mg/dL [facility] Comment:Testing performed by : [facility], [address] [place] [phone] Glucose 109 70 - 199 mg/dL CERNER [...] was last revised 2022. Testing performed by: [facility], [address] [place] [phone] Calcium 10.2 8.5 - 10.3 mg/dL [facility] Comment:Testing performed by : [facility], [address] [place] [phone] Bilirubin, total 0.2 0.1 - 1.2 mg/dL [facility] Comment:Testing performed by : [facility], [address] [place] [phone] Protein, pl 8.6(H) 6.5 - 8.5 g/dL [facility] Comment:Testing performed by : [facility], [address] [place] [phone] Albumin 4.5 3.5 - 5.0 g/dL [facility] [place] Comment:Testing performed by : [facility], [address] [place] [phone] Alk phos 183(H) 40 - 130 Units/L [facility] [place] Comment:Testing performed by : [facility], [address] [place] [phone] ALT 37 7 - 55 Units/L [facility] Comment:Testing performed by : [facility], [address] [place] [phone] AST 26 10 - 50 Units/L [facility] Comment:Testing performed by : [facility], [address] [place] [phone] Blood 06/12/2023 10:2 3 AM CDT 06/12/2023 10:26 AM CDT Josué Del Valle MD PhD LAB BLOOD ORDERABLES Fin al Result [facility] Department [place] [address] * Cytomegalovirus (CMV) DNA PCR, quantitative Blood (06/12/2023 10:23 AM CDT) [facility] CMV DNA Not Detected [facility] Comment: Interpretive Data: The quantifiable range of this assay is 34 IUnits/mL to 10,000,000 IUnits/mL (1.53 log IUnits/mL to 7.0 log IUnits/mL). Testing was performed by the MICHEL 6800 CMV Test ([employer] Testing performed at [facility]. Current interpretive data was last revised on 2021. Blood 06/12/2023 10:2 3 AM CDT 06/12/2023 10:43 AM CDT Josué Del Valle MD PhD LAB MICROBIOLOGY - GENER AL ORDERABLES Final Result Performing Organization Address [facility] Co de Phone Number [facility] Department [place] [address] * Tacrolimus level random (06/12/2023 10:23 AM CDT) Tacrolimus random <1.0 ng/mL [facility] Comment: Undetectable. ??Please verify that the correct immunosuppressant test was requested. Interpretive Data Testing performed by liquid chromatography-tandem mass spectrometry. ??Therapeutic concentrations vary depending on type of transplanted organ and time elapsed since transplant. ??Typical trough concentrations range from 5-15 ng/mL. ??This test was developed and its performance characteristics determined by the [facility] consistent with CLIA requirements. ??This test has not been cleared or approved by the [place] Food and Drug administration. ??Current interpretive data last reviewed 2020. Blood 06/12/2023 10:2 3 AM CDT 06/12/2023 10:36 AM CDT Josué Del Valle MD PhD LAB BLOOD ORDERABLES Fin al Result Performing Organization Address [facility] Co de Phone Number [facility] [place] Department [place] [address] documented in this encounter Visit Diagnoses Diagnosis AML (acute myeloid leukemia) in remission (HCC) documented in this encounter Care Teams Gaming Investigator Relationship Specialty Start Date End Date Kirt Lindsay DO PCP - General Internal Medicine 02/02/21 Josué Del Valle MD PhD Medical Oncologist/Wood Fence Erector Medical Oncology 08/26/19 Cal Carranza DO [address] [place] [address] Clinical Lab Technologist Internal Medicine 06/12/23 Halie Khan MD [address] [place] [address] Web Architect Critical Care Med 06/12/23 documented as of this encounter
--- OUTSIDE RECORDS SUMMARY | 2024-11-22 12:54 | XMS_ITS | Encounter Summary ---
Author Organization [facility] Address [address] [place] [address] Phone Care Team Providers Care Tile Machine Operator Name Role Phone Josué Del aVlle MD PhD Unavailable [phone] Kirt Lindsay DO Primary Care Provider [phone] Tay Charlton MD Unavailable [phone] Halie Khan MD Unavailable StarksAnt goldman MD Unavailable [phone] Reason for Visit * Reason Onset Date Comments PRIOR AUTHORIZATION ALBUTEROL SULFATE 05/27/2023 Encounter Details Date Type Department Care Team (Late st Contact Info) Description 05/27/2023 Documentation [facility] [address] [facility] Advanced Medicine 7th Floor, [place] [address] Sophie Chilel, A PRIOR AUTHORIZATION [...] on file Legal Sex Male 10:48 AM HANGER Gender Identity Not on file Sexual Orientation [...] Yes CAN THIS DRUG BE FILLED AT [facility]?:No DOES THIS DRUG REQUIRE THE USE OF A SPECIALTY PHARMACY?: [facility] PHARMACY NAME: [facility] PHONE#: [phone] FAX#: [phone] PHARMACY BENCH WORKER HOLLOW HANDLE: [facility] ID#: [id number] BIN: [id number] PCN: [id number] RX GROUP: DANNY [employer] SERVICE #: [phone] FAX#: Completed by: ESVIN Yen documented in this encounter Plan of Treatment Not on file documented as of this encounter Visit Diagnoses Not on filedocumented in this encounter Care Teams Tile Machine Operator Relationship Specialty Start Date End Date Kirt Lindsay DO PCP - General Internal Medicine 02/02/21 Josué Del Valle MD PhD Medical Oncologist/Organ Builder Medical Oncology 08/26/19 Tay Charlton MD Consulting Physician Gastroenterology 12/03/21 06/11/23 Halie Khan MD [address] [place] [phone] Consulting Physician Pulmonary Disease 12/12/21 3 Ant Starks MD [address] [address] Consulting Physician Transplant Hepatology 01/12/22 documented as of this encounter
--- OUTSIDE RECORDS SUMMARY | 2024-11-22 12:54 | XMS_ITS | Encounter Summary ---
Author Organization [facility] Healthcare Address [address] [place] [address] Care Team Providers Care Pumping Station Supervisor Name Role Phone Josué Del Valle MD PhD Unavailable [phone] Kirt Lindsay DO Primary Care Provider [phone] Cal Carranza DO Unavailable [phone] Halie Khan MD Unavailable [phone] Encounter Details Date Type Department Care Team (Latest Contact Info) Description 09/09/2023 8:47 AM CDT - 09/09/2023 11:59 PM CDT Hospital Encounter [facility]) [address] [place] [phone] Discharge Disposition: Discharge to home or self [...] on file 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 Gender Identity Not on file Sexual Orientation Not on file documented as of this encounter Medications at Time of Discharge cholecalciferol (VITAMIN D-3) 25 mcg (1,000 unit) tablet Take 2 tablets (2,000 Units total) by mouth every morning 11/13/20 21 flash glucose scanning reader (FreeStyle Evaristo 2 [place]) [facility] Use to test blood glucose continuously 1 [...] leukemia) in remission ([facility]) TAKE 1 TABLET(400 MG) BY MOUTH EVERY 8 HOURS 270 tablet 1 06/11/20 22 024 albuterol HFA (PROVENTIL HFA,VENTOLIN HFA,PROAIR HFA) 90 mcg/actuation inhalerIndications:Chron ic obstructive pulmonary disease, unspecified COPD type ([facility]) INHALE TWO PUFFS BY MOUTH EVERY [...] long-term current use of insulin ([facility]),Ojwvf-myrenx-xiar disease ([facility]),H/O allogeneic bone marrow [...] days 2 kit 11 03/17/20 23 024 qdlbhhzqtjc-wryqjkscn-bs lanter (Trelegy Ellipta) 200-62.5-25 mcg inhalerIndications:Chron ic obstructive pulmonary disease, unspecified COPD type ([facility]) Inhale 1 puff daily 60 each 3 05/02/20 23 023 furosemide (LASIX) 20 mg tabletIndications:Type 2 diabetes mellitus with hyperosmolarity without coma, with long-term current use of insulin ([facility]) Take 1 tablet (20 mg total) by mouth daily As needed. 30 tablet 01/15/20 20 024 gabapentin (NEURONTIN) 300 mg capsuleIndications:AML (acute myeloid leukemia) in remission ([facility]) TAKE ONE CAPSULE BY MOUTH FOUR TIMES DAILY @3YQ-[id number]-8MX-9PM 120 capsule 11 05/20/20 23 024 insulin glargine (LANTUS, BASAGLAR) 100 unit/mL (3 mL) pen for injectionIndications: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 1 [...] mcg/actuation inhalerIndications:AML (acute myeloid leukemia) in remission ([facility]) 06/11/20 024 montelukast (SINGULAIR) 10 mg tabletIndications:AML (acute myeloid leukemia) in remission (HCC),Qffyg-ftbozp-vtbz disease (HCC) Take 1 tablet (10 mg total) by mouth daily 90 tablet 1 06/26/20 22 024 mupirocin (BACTROBAN) 2 % ointmentIndications:Loca l skin infection Apply topically 3 (three) times a day 22 g 05/22/20 23 024 mycophenolate mofetil (CELLCEPT) 500 mg tabletIndications:AML (acute myeloid leukemia) in remission ([facility]),Aaodq-ciyfyf-djpv disease (HCC) TAKE TWO TABLETS BY MOUTH [...] c obstructive pulmonary disease, unspecified COPD type ([facility]) Take 40mg (4 tablets) daily for 5 days. THEN take 30mg (3 tablets) daily for 5 days. THEN Take 20mg (2 tablets) daily for 5 days. THEN take 10mg (1 tablet) for 5 days. THEN stop. 50 tablet 05/02/20 024 tacrolimus (PROGRAF) 0.5 mg immediate-release capsuleIndications:AML (acute myeloid leukemia) in remission ([facility]) TAKE ONE CAPSULE BY MOUTH EVERY [...] on filedocumented in this encounter Care Teams Pumping Station Supervisor Relationship Specialty Start Date End Date Kirt Lindsay DO PCP - General Internal Medicine 02/02/21 Josué Del Valle MD PhD Medical Oncologist/Supervisor Brake Repair Medical Oncology 08/26/19 Cal Carranza DO [address] [facility] [address] [place] [address] Sales Representative Livestock Internal Medicine 06/12/23 Halie Khan MD [address] [place] [address] Parts Cataloger Critical Care Med 06/12/23 documented as of this encounter
--- OUTSIDE RECORDS SUMMARY | 2024-11-22 12:54 | XMS_ITS | Encounter Summary ---
Author Organization [facility] Address [address] [place] [address] Phone Care Team Providers Care Oncology Rep Specialist Name Role Phone Josué Del Valle MD PhD Unavailable Kirt Lindsay DO Primary Care Provider [phone] Tay Charlton MD Unavailable [phone] Halie Khan MD Unavailable [place] MillsAnt MD Unavailable [phone] Reason for Visit * Reason Onset Date Comments Med Refill 06/06/2023 Encounter Details Date Type Department Care Team (Late st Contact Info) Description 06/06/2023 Telephone [facility] Bone Marrow Transplant [address] [facility] 7th Floor, [place] [address] Jenna Vasquez RMA Med Refill [...] on file 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 Gender Identity Not on file Sexual [...] on filedocumented in this encounter Care Teams Oncology Rep Specialist Relationship Specialty Start Date End Date Kirt Lindsay DO PCP - General Internal Medicine 02/02/21 Josué Del Valle MD PhD Medical Oncologist/Plumbing Foreman Medical Oncology 08/26/19 Tay Charlton MD Consulting Physician Gastroenterology 12/03/21 06/11/23 Halie Khan MD [address] [address] Consulting Physician Pulmonary Disease 12/12/21 3 Ant Starks MD [address] [address] Consulting Physician Transplant Hepatology 01/12/22 documented as of this encounter
--- OUTSIDE RECORDS SUMMARY | 2024-11-22 12:54 | XMS_ITS | Encounter Summary ---
Author Organization [facility] Address [address] [place] [address] Phone Care Team Providers Care Permanent Mold Supervisor Name Role Phone Josué Del Valle MD PhD Unavailable [phone] Kirt Lindsay DO Primary Care Provider [phone] Cal Carranza DO Unavailable [phone] Halie Khan MD Unavailable [phone] Encounter Details Date Type Department Care Team (Late st Contact Info) Description 08/06/2023 Telephone [facility] Oncology [address] [facility] 7th [place] [address] [place] [address] Irina Conrad Social History Tobacco [...] on file 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 * Telephone Encounter - Josué Rice RN [...] able to get ride then call to [facility] to see if we can have him evaluated and get some fluids today. documented in this encounter Plan of Treatment Not on file documented as of this encounter Visit Diagnoses Not on filedocumented in this encounter Care Teams Permanent Mold Supervisor Relationship Specialty Start Date End Date Kirt Lindsay DO PCP - General Internal Medicine 02/02/21 Josué Del Valle MD PhD Medical Oncologist/Supervisor Plasma Medical Oncology 08/26/19 Cal Carranza DO [address] [address] Corn Cooker Internal Medicine 06/12/23 Halie Khan MD [address] [place] [address] Associate Professor Of Church Music Critical Care Med 06/12/23 documented as of this encounter
--- OUTSIDE RECORDS SUMMARY | 2024-11-22 12:54 | XMS_ITS | Encounter Summary ---
Author Organization [facility] Address [address] [place] [address] Phone Care Team Providers Care Finisher Cold Rolling Name Role Phone Josué Del Valle MD PhD Unavailable [phone] Kirt Lindsay DO Primary Care Provider [phone] Cal Carranza DO Unavailable [phone] Halie Khan MD Unavailable [phone] Reason for Visit * Oncology (Routine) - Closed Specialty Diagnoses / Procedures Referred By Contac t Referred To Contact Medical Oncology / Blood and Marrow Transplant Diagnoses AML (acute myeloid leukemia) in remission (HCC) [facility] Scheduling [address] [place] [address] Phone: tel: Josué Del Valle MD PhD [address] DIV IM BONE MARROW TRANSPLANT, [address] [place] [address] Phone: tel: fax: Referral ID Status Reason Start Date Expiration Date V isits Requested Visits Authorized [id number] Closed Specialty Services Required 06/05/2021 11/17/2023 99 99 Encounter Details Date Type Department Care Team (Late st Contact Info) Description 06/12/2023 10:15 AM CDT Lab [facility] Oncology [address] [facility] 7th [place] [address] [place] [address] AML (acute myeloid leukemia) in remission (HCC) [...] on file 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 Gender Identity Not on file Sexual Orientation Not on file documented as of this encounter Plan of Treatment Not on file documented as of this encounter Visit Diagnoses Diagnosis AML (acute myeloid leukemia) in remission (HCC) documented in this encounter Orders Appointment Requests Count Last Ordered Date Fi rst Ordered Date ONCBCN LAB APPOINTMENT 1 06/12/2023 documented in this encounter Care Teams Finisher Cold Rolling Relationship Specialty Start Date End Date Kirt Lindsay DO PCP - General Internal Medicine 02/02/21 Josué Del Valle MD PhD Medical Oncologist/Manager Forms Medical Oncology 08/26/19 Cal Carranza DO [address] [address] Side Framer Internal Medicine 06/12/23 Halie Khan MD [address] [address] Hydrocrane Operator Critical Care Med 06/12/23 documented as of this encounter
--- OUTSIDE RECORDS SUMMARY | 2024-11-22 12:54 | XMS_ITS | Encounter Summary ---
Author Organization [facility] Address [address] [place] [address] Phone Care Team Providers Care Asbestos Brake Lining Finisher Name Role Phone Josué Del Valle MD PhD Unavailable [phone] Kirt Lindsay DO Primary Care Provider [phone] Cal Carranza DO Unavailable [phone] Halie Khan MD Unavailable [phone] Encounter Details Date Type Department Care Team (Late st Contact Info) Description 01/15/2024 Telephone [facility] Bone Marrow Transplant [address] 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 Gender Identity Not on file Sexual [...] - 01/15/2024 8:26 AM CST Refill sent HAT LINUX ADMINISTRATOR * Telephone Encounter - Marisa Mcdermott - 01/15/2024 8:08 AM CST [facility] calling ([phone]) for refill on Albuteral Inhaler 90mcg HAT LINUX ADMINISTRATOR documented in this encounter Plan of Treatment [...] documented as of this encounter Care Teams Asbestos Brake Lining Finisher Relationship Specialty Start Date End Date Kirt Lindsay DO PCP - General Internal Medicine 02/02/21 Josué Del Valle MD PhD Medical Oncologist/Supervisor Claims Medical Oncology 08/26/19 Cal Carranza DO [address] [facility] [address] [place] [address] Seater Grinder Internal Medicine 06/12/23 Halie Khan MD [address] [facility] [address] [place] [address] Oncology Navigator Critical Care Med 06/12/23 documented as of this encounter
--- OUTSIDE RECORDS SUMMARY | 2024-11-22 12:54 | XMS_ITS | Encounter Summary ---
Author Organization [facility] Address [address] [place] [address] Phone Care Team Providers Care Crew Leader Gluing Name Role Phone Josué Del Valle MD PhD Unavailable [phone] Kirt Lindsay DO Primary Care Provider [phone] Cal Carranza DO Unavailable [phone] Halie Khan MD Unavailable [phone] Reason for Visit * Reason Onset Date Comments WANG 10/18/2023 Better [facility] Me dical Supplies Encounter Details Date Type Department Care Team (Late st Contact Info) Description 10/18/2023 Telephone [facility] Endocrinology Metabolism and Lipid [address] [facility] Advanced Medicine 13th [place] [address] [place] [address] Arleen Camejo RMA WANG (Food52 [facility] Medical Supplies) Social History Tobacco Use Types [...] on file 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 RETTE CATCHER documented in this encounter Plan of Treatment Not on file documented as of this encounter Visit Diagnoses Not on filedocumented in this encounter Care Teams Crew Leader Gluing Relationship Specialty Start Date End Date Kirt Lindsay DO PCP - General Internal Medicine 02/02/21 Josué Del Valle MD PhD Medical Oncologist/Painter Tumbling Barrel Medical Oncology 08/26/19 Cal Carranza DO [address] [facility] [address] [place] [address] Intelligence Applications Internal Medicine 06/12/23 Halie Khan MD [address] [place] [address] Casing Blower Critical Care Med 06/12/23 documented as of this encounter
--- OUTSIDE RECORDS SUMMARY | 2024-11-22 12:54 | XMS_ITS | Encounter Summary ---
Author Organization [facility] Address [address] [place] [address] Phone Care Team Providers Care Heel Padder Name Role Phone Josué Del Valle MD PhD Unavailable Kirt Lindsay DO Primary Care Provider [phone] Tay Charlton MD Unavailable [phone] Halie Khan MD Unavailable [phone] StarksAnt goldman MD Unavailable [phone] Encounter Details Date Type Department Care Team (Late st Contact Info) Description 05/22/2023 Orders Only [facility] Bone Marrow Transplant [address] [facility] Advanced Medicine 7th Floor, [place] [address] Josué Del Valle MD PhD [address] DIV IM BONE MARROW TRANSPLANT, [address] [place] [address] Social History Tobacco Use Types [...] on file 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 Gender Identity Not on file Sexual Orientation Not on file documented as of this encounter Plan of Treatment Not on file documented as of this encounter Visit Diagnoses Not on filedocumented in this encounter Care Teams Heel Padder Relationship Specialty Start Date End Date Kirt Lindsay DO PCP - General Internal Medicine 02/02/21 Josué Del Valle MD PhD Medical Oncologist/Chemical Recovery Operator Medical Oncology 08/26/19 Tay Charlton MD Consulting Physician Gastroenterology 12/03/21 06/11/23 Halie Khan MD [address] [address] Consulting Physician Pulmonary Disease 12/12/21 3 Ant Starks MD [address] [address] Consulting Physician Transplant Hepatology 01/12/22 documented as of this encounter
--- OUTSIDE RECORDS SUMMARY | 2024-11-22 12:55 | XMS_ITS | Encounter Summary ---
Author Organization [facility] Address [address] [place] [address] Phone Care Team Providers Care Packaging Tech Name Role Phone Josué Del Valle MD PhD Unavailable [phone] Kirt Lindsay DO Primary Care Provider [phone] Tay Charlton MD Unavailable [phone] Halie Khan MD Unavailable [phone] StarksAnt goldman MD Unavailable [phone] Encounter Details Date Type Department Care Team (Late st Contact Info) Description 05/01/2023 Telephone [facility] Oncology [address] [facility] 7th [place] [address] [place] [address] Irina Conrad Social History Tobacco Use Types [...] on file 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 Gender Identity Not on file [...] on filedocumented in this encounter Care Teams Packaging Tech Relationship Specialty Start Date End Date Kirt Lindsay DO PCP - General Internal Medicine 02/02/21 Josué Del Valle MD PhD Medical Oncologist/Art Tracer Medical Oncology 08/26/19 Tay Charlton MD Consulting Physician Gastroenterology 12/03/21 06/11/23 Halie Khan MD [address] [facility] [address] [place], [place] [address] Consulting Physician Pulmonary Disease 12/12/21 3 Ant Starks MD [address] [place], [place] [address] Consulting Physician Transplant Hepatology 01/12/22 documented as of this encounter
--- OUTSIDE RECORDS SUMMARY | 2024-11-22 12:55 | XMS_ITS | Encounter Summary ---
Author Organization [facility] Address [address] [place] [address] Phone Care Team Providers Care Assistant Professor Of History Name Role Phone Josué Del Valle MD PhD Unavailable [phone] Kirt Lindsay DO Primary Care Provider [phone] Tay Charlton MD Unavailable [phone] Halie Khan MD Unavailable [phone] StarksAnt goldman MD Unavailable [phone] Encounter Details Date Type Department Care Team (Late st Contact Info) Description 03/22/2023 Documentation [facility] Bone Marrow Transplant [address] [facility] 7th Floor, [place] [address] Anna Vaughn LCSW Social History [...] file 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 SW booked trip through [employer] and shared details with pt via email: Transportation Vehicle [employer] ([employer]) Provider [employer] Ride ID: [id number] Pickup 03/25/23 9:15 AM (CDT) [address] [place] [address] Round Trip: [facility] [address] [place], [place] [address] [place] [address] (Return By SMS) Status Upcoming Pt is agreeable with plan and knows to reach out with any questions or concerns. BRIGID Casarez, MARLIN documented in this encounter Plan of Treatment Not on file documented as of this encounter Visit Diagnoses Not on filedocumented in this encounter Care Teams Assistant Professor Of History Relationship Specialty Start Date End Date Kirt Lindsay DO PCP - General Internal Medicine 02/02/21 Josué Del Valle MD PhD Medical Oncologist/Director Marketing Medical Oncology 08/26/19 Tay Charlton MD Consulting Physician Gastroenterology 12/03/21 06/11/23 Halie Khan MD [address] [place] [address] Consulting Physician Pulmonary Disease 12/12/21 3 Ant Starks MD [address] [facility] [address] [place] [address] Consulting Physician Transplant Hepatology 01/12/22 documented as of this encounter
--- OUTSIDE RECORDS SUMMARY | 2024-11-22 12:55 | XMS_ITS | Encounter Summary ---
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 Gender Identity Not on file Sexual [...] on filedocumented in this encounter Care Teams Sack Filler Relationship Specialty Start Date End Date Kirt Lindsay DO PCP - General Internal Medicine 02/02/21 Josué Del Valle MD PhD Medical Oncologist/Hot Dip Plater Medical Oncology 08/26/19 Tay Charlton MD Consulting Physician Gastroenterology 12/03/21 06/11/23 Halie Khan MD [address] [address] Consulting Physician Pulmonary Disease 12/12/21 3 Ant Starks MD [address] [address] Consulting Physician Transplant Hepatology 01/12/22 documented as of this encounter
--- OUTSIDE RECORDS SUMMARY | 2024-11-22 12:55 | XMS_ITS | Encounter Summary ---
Author Organization [facility] Healthcare Address [address] [place] [address] Care Team Providers Care Wool Classer Name Role Phone Josué Del Valle MD PhD Unavailable [phone] Kirt Lindsay DO Primary Care Provider [phone] Tay Charlton MD Unavailable Halie Khan MD Unavailable [phone] Ant Starks MD Unavailable [phone] Encounter Details Date Type Department Care Team (Latest Contact Info) Description 02/18/2023 8:36 AM CDT - 02/18/2023 11:59 PM CDT Hospital Encounter [facility] ([facility]) [address] [place] [phone] H/O allogeneic bone marrow transplant (HCC); Other [...] file 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 Gender Identity Not on file Sexual Orientation [...] morning 11/13/20 21 flash glucose scanning reader (RightScale Evaristo 2 [place]) [facility] Use [...] (acute myeloid leukemia) in remission ([facility]) TAKE 1 TABLET(400 MG) BY MOUTH EVERY 8 HOURS 270 tablet 1 06/11/20 22 024 albuterol HFA (PROVENTIL HFA,VENTOLIN HFA,PROAIR HFA) 90 mcg/actuation inhalerIndications:Chron ic obstructive pulmonary disease, unspecified COPD type ([facility]) Inhale 2 puffs every 6 (six) hours as needed for wheezing 1 each 3 10/22/20 22 023 aspirin 81 mg enteric coated tablet Take 1 tablet (81 mg total) by mouth every morning 01/01/20 23 024 atorvastatin (LIPITOR) 40 mg tabletIndications:AML (acute myeloid leukemia) in remission ([facility]),Type 2 diabetes mellitus with hyperglycemia, with long-term current use of insulin ([facility]),Ftmmg-shjdij-frhk disease ([facility]),H/O allogeneic bone marrow transplant ([facility]),Pure hypercholesterolemia Take 1 tablet (40 mg total) by mouth daily 30 tablet 6 01/15/20 20 024 blood-glucose meter miscIndications:Type 2 diabetes mellitus with hyperosmolarity without coma, with long-term current use of insulin ([facility]) 1 Device 3 (three) times a [...] (acute myeloid leukemia) in remission ([facility]),H/O allogeneic bone marrow transplant ([facility]),Vitamin D deficiency TAKE 1 CAPSULE BY MOUTH ONCE A WEEK DIRECTED 12 capsule 3 10/24/20 21 024 flash glucose sensor (FreeStyle Evaristo 2 Sensor) kit Change sensor every 14 days 2 kit 11 03/17/20 23 024 furosemide (LASIX) 20 mg tabletIndications:Type 2 diabetes mellitus with hyperosmolarity without coma, with long-term current use of insulin ([facility]) Take 1 tablet (20 mg total) by mouth daily As needed. 30 tablet 01/15/20 20 024 gabapentin (NEURONTIN) 300 mg capsuleIndications:AML (acute myeloid leukemia) in remission ([facility]) TAKE 1 CAPSULE(300 MG) BY MOUTH FOUR TIMES DAILY 120 capsule 1 02/02/20 23 023 insulin glargine (LANTUS, BASAGLAR) 100 unit/mL (3 mL) pen for injectionIndications:Typ e 2 diabetes mellitus with hyperosmolarity without coma, with long-term current use of insulin ([facility]) INJECT 15 UNITS NIGHTLY SUB-Q. 1 pen 5 02/04/20 21 024 insulin lispro (HumaLOG, ADMELOG) 100 unit/mL pen for injectionIndications:Typ e 2 diabetes mellitus with hyperosmolarity without coma, with long-term current use of insulin ([facility]) INJECT 5-10 UNITS TID WITH MEALS PLUS SLIDING SCALE. TDD OF 35 UNITS. 10 pen 6 02/04/20 21 024 montelukast (SINGULAIR) 10 mg tabletIndications:AML (acute myeloid leukemia) in remission ([facility]),Gplhn-xgstun-qcwe disease (HCC) Take 1 tablet (10 mg total) by mouth daily 90 tablet 1 06/26/20 22 024 mycophenolate mofetil (CELLCEPT) 500 mg tabletIndications:AML (acute myeloid leukemia) in remission ([facility]),Smhwb-olwnva-pcnx disease (HCC) TAKE 2 TABLETS(1000 MG) BY [...] pulmonary disease, unspecified COPD type ([facility]) Take 40mg (4 tablets) daily for [...] (acute myeloid leukemia) in remission ([facility]) TAKE 1 CAPSULE BY MOUTH EVERY OTHER DAY 15 capsule 3 10/04/20 22 023 traMADoL (ULTRAM) 50 mg tablet Take 1 tablet (50 mg total) by mouth every 6 (six) hours 10 tablet 01/12/20 22 024 Trelegy Ellipta 200-62.5-25 mcg inhalerIndications:Chron ic obstructive pulmonary disease, unspecified COPD type ([facility]) INHALE 1 PUFF BY MOUTH DAILY [...] CDT AML (acute myeloid leukemia) in remission ([facility]) EGFR Routine 02/18/2023 9:56 AM CDT AML (acute myeloid leukemia) in remission ([facility]) DIFFERENTIAL AUTO Routine 02/18/2023 9:5 6 AM CDT AML (acute myeloid leukemia) in remission ([facility]) CBC WITH AUTO DIFFERENTIAL Routine 02/18/2023 9:56 AM CDT AML (acute myeloid leukemia) in remission ([facility]) TACROLIMUS LEVEL, RANDOM Routine 02/18/2023 9:56 AM CDT AML (acute myeloid leukemia) in remission ([facility]) VITAMIN D 25 HYDROXY STAT 02/18/2023 9:56 AM CDT H/O allogeneic bone marrow transplant ([facility]) Other osteoporosis without current pathological fracture Type 2 diabetes mellitus with hyperosmolarity without coma, with long-term current use of insulin ([facility]/HCC) ([facility]) TSH STAT 02/18/2023 9:56 AM CDT H/O allogeneic bone marrow transplant ([facility]) Other osteoporosis without current pathological fracture Type [...] Results * eGFR (02/18/2023 9:56 AM CDT) [facility] eGFR >90 90 - 130 mL/min/1. 73 [...] last reviewed 2021. Testing performed by: [facility], [address] [place] [phone] Blood 02/18/2023 9:56 AM CDT 02/18/2023 10:10 AM CDT us Narcisa Kilgore NP LAB BLOOD ORDERABLES Pilar armas Result [facility] One [facility] Department [place] [address] * (ABNORMAL) Differential, auto (02/18/2023 9:56 AM CDT) Neutrophil abs 8.1(H) 1.8 - 6.6 K/cumm [facility] Comment:Testing performed by : [facility], [address] [place] [phone] Lymphocyte abs 4.1(H) 1.2 - 3.3 K/cumm [facility] Comment:Testing performed by : [facility], [address] [place] [phone] Monocyte abs 1.3(H) 0.2 - 1.2 K/cumm [facility] Comment:Testing performed by : [facility], [address] [place] [phone] Eosinophil abs 0.3 0.0 - 0.5 K/cumm [facility] Comment:Testing performed by : [facility], [address] [place] [phone] Basophil abs 0.1 0.0 - 0.2 K/cumm [facility] Comment:Testing performed by : [address] [phone] Neutrophil pct 58.1 % [facility] Comment: Interpretive Data Percent cell count reference ranges are not reported, since discordance with absolute values may lead to misinterpretation of CBC data. Current Interpretive Data was last revised on 2018. Testing performed by: [facility], [address] [place] [phone] Lymphocyte pct 29.4 % [facility] Comment: Interpretive Data Percent cell count reference ranges are not reported, since discordance with absolute values may lead to misinterpretation of CBC data. Current Interpretive Data was last revised on 2018. Testing performed by: [facility], [address] [place] [phone] Monocyte pct 9.2 % [facility] Comment:Testing performed by : [facility], [address] [place] [phone] Eosinophil pct 2.4 % [facility] Comment:Testing performed by : [facility], [address] [place] [phone] Basophil pct 0.9 % [facility] Comment:Testing performed by : [facility], [address] [place] [phone] Blood 02/18/2023 9:56 AM CDT 02/18/2023 10:10 AM CDT Narcisa Kilgore KINDERGARTEN INSTRUCTIONAL ASSISTANT LAB BLOOD ORDERABLES Pilar l Result [facility] One [facility] Department [place] [address] * (ABNORMAL) CBC with auto differential (02/18/2023 9:56 AM CDT) WBC 13.9(H) 3.8 - 9.8 K/cumm [facility] Comment:Testing performed by : [facility], [address] [place] [phone] Hgb 13.7(L) 13.8 - 17.2 g/dL [facility] Comment:Testing performed by : [address] [phone] Hct 39.9(L) 40.7 - 50.3 % [facility] Comment:Testing performed by : [facility], [address] [place] [phone] Plt 367 140 - 440 K/cumm [facility] Comment:Testing performed by : [facility], [address] [place] [phone] MPV 7.9 6.8 - 10.4 fL [facility] Comment:Testing performed by : [facility], [address] [place], [place] [phone] RBC 3.82(L) 4.50 - 5.70 M/cumm [facility] Comment:Testing performed by : [facility], [address] [place], [place] [phone] MCV 104.2(H) 80.0 - 97.6 fL [facility] Comment:Testing performed by : [facility], [address] [place] [phone] MCH 35.7(H) 26.7 - 33.7 pg [facility] Comment:Testing performed by : [facility], [address] [place] [phone] MCHC 34.3 32.7 - 35.5 g/dL [facility] Comment:Testing performed by : [address] [phone] RDW CV 12.8 11.8 - 14.6 % [facility] Comment:Testing performed by : [address] [phone] NRBC abs 0.01 0.00 - 0.01 K/cumm [facility] Comment:Testing performed by : [facility], [address] [place] [phone] Blood 02/18/2023 9:56 AM CDT 02/18/2023 10:10 AM CDT us Narcisa Kilgore KINDERGARTEN INSTRUCTIONAL ASSISTANT LAB BLOOD ORDERABLES Pilar l Result [facility] One [facility] Department [place] [address] * (ABNORMAL) Comprehensive metabolic panel (02/18/2023 9:56 AM CDT) Sodium 140 135 - 145 mmol/L [facility] Comment:Testing performed by : [facility], [address] [place] [phone] Potassium, pl 4.5 3.3 - 4.9 mmol/L [facility] Comment:Testing performed by : [facility], [address] [place] [phone] Chloride 100 97 - 110 mmol/L [facility] Comment:Testing performed by : [facility], [address] [place] [phone] CO2 29 22 - 32 mmol/L [facility] Comment:Testing performed by : [facility], [address] [place] [phone] Anion gap 11 2 - 15 mmol/L [facility] Comment:Testing performed by : [address] [phone] BUN 11 8 - 25 mg/dL [facility] Comment:Testing performed by : [facility], [address] [place] [phone] Creatinine 0.90 0.80 - 1.30 mg/dL [facility] Comment:Testing performed by : [facility], [address] [place] [phone] Glucose 140 70 - 199 mg/dL [facility] Comment: Interpretive Data Fasting glucose >/= [...] was last revised 2022. Testing performed by: [address] [phone] Calcium 10.1 8.5 - 10.3 mg/dL [facility] Comment:Testing performed by : [facility], [address] [place] [phone] Bilirubin, total 0.3 0.1 - 1.2 mg/dL [facility] Comment:Testing performed by : [facility], [address] [place] [phone] Protein, pl 8.0 6.5 - 8.5 g/dL [facility] Comment:Testing performed by : [facility], [address] [place] [phone] Albumin 4.2 3.5 - 5.0 g/dL [facility] Comment:Testing performed by : [facility], [address] [place] [phone] Alk phos 143(H) 40 - 130 Units/L [facility] Comment:Testing performed by : [facility], [address] [place] [phone] ALT 11 7 - 55 Units/L [facility] Comment:Testing performed by : [facility], [address] [place] [phone] AST 21 10 - 50 Units/L [facility] Comment:Testing performed by : [facility], [address] [place] [phone] Blood 02/18/2023 9:56 AM CDT 02/18/2023 10:10 AM CDT Narcisa Kilgore KINDERGARTEN INSTRUCTIONAL ASSISTANT LAB BLOOD ORDERABLES Pilar l Result [facility] One [facility] Department [place] [address] * Lactate dehydrogenase (LD) (02/18/2023 9:56 AM CDT) Lactate dehydrogenase (LDH) 174 100 - 250 Units/L [facility] Comment:Testing performed by : [facility], [address] [place] [phone] Blood 02/18/2023 9:56 AM CDT 02/18/2023 10:10 AM CDT Narcisa Kilgore NP LAB BLOOD ORDERABLES Pilar l Result Performing Organization Address [facility] Co de Phone Number [facility] One [facility] [place] [address] * Cytomegalovirus (CMV) DNA PCR, quantitative Blood (02/18/2023 9:56 AM CDT) CMV DNA Not Detected [facility] Comment: Interpretive Data: The quantifiable range of this assay is 34 IUnits/mL to 10,000,000 IUnits/mL (1.53 log IUnits/mL to 7.0 log IUnits/mL). Testing was performed by the MICHEL 6800 CMV Test ([employer] Testing performed at [facility]. Current interpretive data was last revised on 2021. Blood 02/18/2023 9:56 AM CDT 02/18/2023 10:52 AM CDT Narcisa Kilgore NP LAB MICROBIOLOGY - GENERA L ORDERABLES Final Result Performing Organization Address [facility] Co de Phone Number [facility] One [facility] [place] [address] * Tacrolimus level random (02/18/2023 9:56 AM CDT) Pathologist [facility] Tacrolimus random <1.0 ng/mL [facility] Comment: Undetectable. ??Please verify that the [...] CDT 02/18/2023 10:34 AM CDT Narcisa Kilgore KINDERGARTEN INSTRUCTIONAL ASSISTANT LAB BLOOD ORDERABLES Pilar l Result Performing Organization Address [facility] Co de Phone Number [facility] [place] [address] * T4, free (02/18/2023 9:56 AM CDT) Free T4 1.41 0.90 - 1.70 ng/dL [facility] Blood 02/18/2023 9:56 AM CDT 02/18/2023 10:[address] Montejo MD LAB BLOOD ORDERABLES Final Resu lt Performing Organization Address [facility] de Phone Number [facility] [place] [address] * (ABNORMAL) TSH (02/18/2023 9:56 AM CDT) Thyroid Stimulating Hormone 0.29(L) 0.30 - 4.20 mcIUnit/mL [facility] Blood 02/18/2023 9:56 AM CDT 02/18/2023 10:[address] Montejo MD LAB BLOOD ORDERABLES Final Resu lt Performing Organization Address [facility] Co de Phone Number [facility] [place] [address] * Vitamin D 25 hydroxy (02/18/2023 9:56 AM CDT) Vitamin D 25-OH 46 30 - 80 ng/mL [facility] Blood 02/18/2023 9:56 AM CDT 02/18/2023 10:[address] Montejo MD LAB BLOOD ORDERABLES Final Resu lt Performing Organization Address [facility] Co de Phone Number [facility] One [facility] Department [place] [address] * Lipid panel (02/18/2023 9:56 AM CDT) [...] revised on 2018. HDL 40 >=40 mg/dL [facility] Comment: Interpretive Data Ages < or = [...] on 2018. LDL, calculated 56 <=129 mg/dL [facility] Comment: Interpretive Data Ages < or = [...] revised on 2018. Non-HDL Cholesterol 82 mg/dL [facility] Comment: Interpretive Data Ages < or = [...] revised on 2018. Chol/HDL ratio 3 [facility] Blood 02/18/2023 9:56 AM CDT 02/18/2023 10:[address] Montejo MD LAB BLOOD ORDERABLES Final Resu lt [facility] One [facility] Department [place] [address] documented in this encounter Visit Diagnoses Diagnosis H/O allogeneic bone marrow transplant (HCC) Other osteoporosis without current pathological fracture Type 2 diabetes mellitus with hyperosmolarity without coma, with long-term current use of insulin (HCC) AML (acute myeloid leukemia) in remission (HCC) documented in this encounter Care Teams Wool Classer Relationship Specialty Start Date End Date Kirt Lindsay DO PCP - General Internal Medicine 02/02/21 Josué Del Valle MD PhD Medical Oncologist/Feeder Catcher Medical Oncology 08/26/19 Tay Charlton MD Consulting Physician Gastroenterology 12/03/21 06/11/23 Halie Khan MD [address] [place] [address] Consulting Physician Pulmonary Disease 12/12/21 3 Ant Starks MD [address] [place], [place] [phone] Consulting Physician Transplant Hepatology 01/12/22 documented as of this encounter
--- OUTSIDE RECORDS SUMMARY | 2024-11-22 12:55 | XMS_ITS | Encounter Summary ---
Author Organization [facility] Address [address] [place] [address] Phone Care Team Providers Care Credit Charge Authorizer Name Role Phone oJsué Del Valle MD PhD Unavailable [phone] Kirt Lindsay DO Primary Care Provider [phone] Tay Charlton MD Unavailable [phone] Halie Khan MD Unavailable [phone] Jumping BranchAnt MD Unavailable [phone] Reason for Visit * Oncology (Routine) - Closed Specialty Diagnoses / Procedures Referred By Contac t Referred To Contact Medical Oncology / Blood and Marrow Transplant Diagnoses AML (acute myeloid leukemia) in remission (HCC) [facility] Scheduling [address] [place] [address] Phone: tel: Josué Del Valle MD PhD [address] DIV IM BONE MARROW TRANSPLANT, [address] [place] [address] Phone: tel: fax: Referral ID Status Reason Start Date Expiration Date V isits Requested Visits Authorized [id number] Closed Specialty Services Required 06/05/2021 11/17/2023 99 99 Encounter Details Date Type Department Care Team (Late st Contact Info) Description 02/18/2023 11:15 AM CDT Office Visit [facility] Bone Marrow Transplant [address] [facility] 7th Floor, [place] [address] Josué Del Valle MD PhD [address] DIV IM BONE MARROW TRANSPLANT, [address] [place] [address] AML (acute myeloid leukemia) in remission (HCC) [...] consolidation x3. 2. Decitabine maintenance on the [facility] [address] protocol. 3. 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 TRANSPLANT HISTORY: Status post an allogeneic transplant with busulfan and Cytoxan on the [facility] allogeneic study with hissister, 08/27 match; with [...] evidence of disease. He has extensive chronic mvpce-vgqyij-prhw disease involving his mouth, eyes, skin, and lungs. He is oth erwise stable. His medications include MMF 500 b.i.d., prednisone, tacrolimus, Singulair, acyclovir, and voriconazole. ELECTRONICALLY SIGNED - 02/18/2023 11:42 AM Josué Del Valle M.D., Ph.D. Chief, Division of Oncology/stone trimmer Section of BMT & Leukemia CHRISTOPHER/lw documented [...] Tacrolimus level random (06/12/2023 10:23 AM CDT) [facility] Tacrolimus random <1.0 ng/mL [facility] Comment: Undetectable. ??Please verify that the correct immunosuppressant test was requested. Interpretive Data Testing performed by liquid chromatography-tandem mass spectrometry. ??Therapeutic concentrations vary depending on type of transplanted organ and time elapsed since transplant. ??Typical trough concentrations range from 5-15 ng/mL. ??This test was developed and its performance characteristics determined by the [facility] consistent with CLIA requirements. ??This test has not been cleared or approved by the [place] Food and Drug administration. ??Current interpretive data last reviewed 2020. Blood 06/12/2023 10:2 3 AM CDT 06/12/2023 10:36 AM CDT Josué Del Valle MD PhD LAB BLOOD ORDERABLES Fin al Result Performing Organization Address [facility] Co de Phone Number [facility] Department [place] [address] * Cytomegalovirus (CMV) DNA PCR, quantitative Blood (06/12/2023 10:23 AM CDT) [facility] CMV DNA Not Detected [facility] Comment: Interpretive Data: The quantifiable range of this assay is 34 IUnits/mL to 10,000,000 IUnits/mL (1.53 log IUnits/mL to 7.0 log IUnits/mL). Testing was performed by the MICHEL 6800 CMV Test ([employer] Testing performed at [facility]. Current interpretive data was last revised on 2021. Blood 06/12/2023 10:2 3 AM CDT 06/12/2023 10:43 AM CDT Josué Del Valle MD PhD LAB MICROBIOLOGY - GENER AL ORDERABLES Final Result Performing Organization Address [facility] Co de Phone Number [facility] Department [place] [address] * (ABNORMAL) Comprehensive metabolic panel (06/12/2023 10:23 AM CDT) [facility] Sodium 141 135 - 145 mmol/L [facility] Comment:Testing performed by : [facility], [address] [place] [phone] Potassium, pl 4.7 3.3 - 4.9 mmol/L [facility] Comment:Testing performed by : [facility], [address] [place] [phone] Chloride 99 97 - 110 mmol/L [facility] Comment:Testing performed by : [facility], [address] [place] [phone] CO2 27 22 - 32 mmol/L [facility] Comment:Testing performed by : [facility], [address] [place] [phone] Anion gap 15 2 - 15 mmol/L [facility] Comment:Testing performed by : [facility], [address] [place] [phone] BUN 16 6 - 25 mg/dL [facility] Comment:Testing performed by : [facility], [address] [place] [phone] Creatinine 0.87 0.80 - 1.30 mg/dL [facility] Comment:Testing performed by : [facility], [address] [place] [phone] Glucose 109 70 - 199 mg/dL CERNER [...] was last revised 2022. Testing performed by: [facility], [address] [place] [phone] Calcium 10.2 8.5 - 10.3 mg/dL [facility] Comment:Testing performed by : [address] [phone] Bilirubin, total 0.2 0.1 - 1.2 mg/dL [facility] Comment:Testing performed by : [facility], [address] [place] [phone] Protein, pl 8.6(H) 6.5 - 8.5 g/dL [facility] Comment:Testing performed by : [address] [phone] Albumin 4.5 3.5 - 5.0 g/dL [facility] Comment:Testing performed by : [address] [phone] Alk phos 183(H) 40 - 130 Units/L [facility] Comment:Testing performed by : [facility], [address] [place] [phone] ALT 37 7 - 55 Units/L [facility] Comment:Testing performed by : [facility], [address] [place] [phone] AST 26 10 - 50 Units/L [facility] Comment:Testing performed by : [facility], [address] [place] [phone] Blood 06/12/2023 10:2 3 AM CDT 06/12/2023 10:26 AM CDT us Josué Del Valle MD PhD LAB BLOOD ORDERABLES Fin al Result [facility] Department [place] [address] * (ABNORMAL) CBC with auto differential (06/12/2023 10:23 AM CDT) WBC 9.5 3.8 - 9.8 K/cumm [facility] Comment:Testing performed by : [facility], [address] [place] [phone] Hgb 14.3 13.8 - 17.2 g/dL [facility] Comment:Testing performed by : [facility], [address] [place] [phone] Hct 42.0 40.7 - 50.3 % [facility] Comment:Testing performed by : [facility], [address] [place] [phone] Plt 349 140 - 440 K/cumm [facility] Comment:Testing performed by : [address] [address] MPV 7.6 6.8 - 10.4 fL [facility] Comment:Testing performed by : [address] [phone] RBC 3.99(L) 4.50 - 5.70 M/cumm [facility] Comment:Testing performed by : [facility], [address] [place], [place] [phone] MCV 105.4(H) 80.0 - 97.6 fL [facility] Comment:Testing performed by : [facility], [address] [place], [place] [phone] MCH 36.0(H) 26.7 - 33.7 pg [facility] Comment:Testing performed by : [facility], [address] [place], [place] [phone] MCHC 34.2 32.7 - 35.5 g/dL [facility] Comment:Testing performed by : [facility], [address] [place], [place] [phone] RDW CV 13.3 11.8 - 14.6 % [facility] Comment:Testing performed by : [facility], [address] [place], [place] [phone] NRBC abs 0.01 0.00 - 0.01 K/cumm [facility] Comment:Testing performed by : [facility], [address] [place], [place] [phone] Blood 06/12/2023 10:2 3 AM CDT 06/12/2023 10:26 AM CDT Josué Del Valle MD PhD LAB BLOOD ORDERABLES Fin al Result Performing Organization Address City/[facility]/ZIP Co de Phone Number [facility] Department [place] [address] * Lactate dehydrogenase (LD) (06/12/2023 10:23 AM CDT) Lactate dehydrogenase (LDH) 222 100 - 250 Units/L [facility] Comment:Testing performed by : [facility], [address] [place] [phone] Blood 06/12/2023 10:2 3 AM CDT 06/12/2023 10:26 AM CDT Josué Del Valle MD PhD LAB BLOOD ORDERABLES Fin al Result Performing Organization Address City/[facility]/ZIP Co de Phone Number [facility] [place] [address] documented in this encounter Visit Diagnoses Diagnosis AML (acute myeloid leukemia) in remission (HCC) documented in this encounter Orders Appointment Requests Count Last Ordered Date Fi rst Ordered Date ONCBCN CLINIC APPOINTMENT REQUEST 2 023 02/18/2023 ONCBCN LAB APPOINTMENT 1 06/12/2023 documented in this encounter Care Teams Credit Charge Authorizer Relationship Specialty Start Date End Date Kirt Lindsay DO PCP - General Internal Medicine 02/02/21 Josué Del Valle MD PhD Medical Oncologist/Field Crop Technical Officer Medical Oncology 08/26/19 Tay Charlton MD Consulting Physician Gastroenterology 12/03/21 06/11/23 Halie Khan MD [address] [place] [address] Consulting Physician Pulmonary Disease 12/12/21 3 Ant Starks MD [address] [place] [address] Consulting Physician Transplant Hepatology 01/12/22 documented as of this encounter
--- OUTSIDE RECORDS SUMMARY | 2024-11-22 12:55 | XMS_ITS | Encounter Summary ---
Author Organization [facility] Address [address] [place] [address] Phone Care Team Providers Care Laborer Mine Name Role Phone Josué Del Valle MD PhD Unavailable [phone] Kirt Lindsay DO Primary Care Provider [phone] Tay Charlton MD Unavailable [phone] Halie Khan MD Unavailable [phone] Ant Starks MD Unavailable [phone] Encounter Details Date Type Department Care Team (Late st Contact Info) Description 03/25/2023 1:50 PM CDT Lab [facility] Endocrinology Metabolism and Lipid [address] [facility] Advanced [facility] 5th [place] [address] [place] [address] Other osteoporosis without current pathological [...] on file 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 Gender Identity Not on file Sexual Orientation Not on file documented as of this encounter Plan of Treatment Not on file documented as of this encounter Visit Diagnoses Diagnosis Other osteoporosis without current pathological fracture H/O allogeneic bone marrow transplant (HCC) documented in this encounter Care Teams Laborer Mine Relationship Specialty Start Date End Date Kirt Lindsay DO PCP - General Internal Medicine 02/02/21 Josué Del Valle MD PhD Medical Oncologist/Legal Billing Clerk Medical Oncology 08/26/19 Tay Charlton MD Consulting Physician Gastroenterology 12/03/21 06/11/23 Halie Khan MD [address] [place] [address] Consulting Physician Pulmonary Disease 12/12/21 3 Ant Starks MD [address] [place] [address] Consulting Physician Transplant Hepatology 01/12/22 documented as of this encounter
--- OUTSIDE RECORDS SUMMARY | 2024-11-22 12:55 | XMS_ITS | Encounter Summary ---
Author Organization [facility] Address [address] [place] [address] Phone Care Team Providers Care Pharmacy Associate Name Role Phone Josué Del Valle MD PhD Unavailable [phone] Kirt Lindsay DO Primary Care Provider [phone] Tay Charlton MD Unavailable [phone] Halie Khan MD Unavailable [phone] Ant Starks MD Unavailable [phone] Reason for Visit * Oncology (Routine) - Closed Specialty Diagnoses / Procedures Referred By Contac t Referred To Contact Lab Diagnoses Type 2 diabetes mellitus with hyperosmolarity without coma, with long-term current use of insulin (HCC) Osteopenia, unspecified location Procedures ONCBCN ARM DRAW APPT [facility] Scheduling [address] [place] [address] Phone: tel: [facility] Oncology [address] [facility] Advanced Medicine 7th [place] [address] [place] [address] Phone: tel: Referral ID Status Reason Start Date Expiration Date V isits Requested Visits Authorized [id number] Closed Specialty Services Required 11/23/2021 11/17/2023 99 99 Encounter Details Date Type Department Care Team (Late st Contact Info) Description 02/18/2023 10:00 AM CDT Lab [facility] Oncology [address] [facility] 7th [place] [address] [place] [address] 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); Vitamin D deficiency; Type 2 diabetes mellitus with other kidney complication, unspecified whether senior living insulin use (HCC); Other osteoporosis without current [...] on file 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 Gender Identity Not on file Sexual [...] mellitus with other kidney complication, unspecified whether oysterman insulin use (HCC) Other osteoporosis without current pathological fracture Other hyperlipidemia documented in this encounter Orders Appointment Requests Count Last Ordered Date Fi rst Ordered Date ONCBCN LAB APPOINTMENT 2 02/18/2023 documented in this encounter Care Teams Pharmacy Associate Relationship Specialty Start Date End Date Kirt Lindsay DO PCP - General Internal Medicine 02/02/21 Josué Del Valle MD PhD Medical Oncologist/Machine I Engraver Medical Oncology 08/26/19 Tay Charlton MD Consulting Physician Gastroenterology 12/03/21 06/11/23 Halie Khan MD [address] [address] Consulting Physician Pulmonary Disease 12/12/21 3 Ant Starks MD [address] [address] Consulting Physician Transplant Hepatology 01/12/22 documented as of this encounter
--- OUTSIDE RECORDS SUMMARY | 2024-11-22 12:55 | XMS_ITS | Encounter Summary ---
Author Organization [facility] Address [address] [place] [address] Care Team Providers Care Electrical Accessories Assembler Name Role Phone Josué Del Valle MD PhD Unavailable [phone] Kirt Lindsay DO Primary Care Provider [phone] Tay Charlton MD Unavailable [phone] Halie Khan MD Unavailable [phone] StarksAnt goldman MD Unavailable [phone] Encounter Details Date Type Department Care Team (Latest Contact Info) Description 05/10/2023 7:42 AM CDT - 05/10/2023 11:59 PM CDT Hospital Encounter 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 Gender Identity Not on file Sexual Orientation Not on file documented as of this encounter Medications at Time of Discharge cholecalciferol (VITAMIN D-3) 25 mcg (1,000 unit) tablet Take 2 tablets (2,000 Units total) by mouth every morning 11/13/20 21 flash glucose scanning reader (DermaGen Evaristo 2 [place]) [facility] Use to test blood glucose continuously [...] (acute myeloid leukemia) in remission ([facility]) TAKE 1 TABLET(400 MG) BY MOUTH EVERY 8 HOURS 270 tablet 1 06/11/20 22 024 albuterol HFA (PROVENTIL HFA,VENTOLIN HFA,PROAIR HFA) 90 mcg/actuation inhalerIndications:Chron ic obstructive pulmonary disease, unspecified COPD type ([facility]) Inhale 2 puffs every 6 (six) hours as needed for wheezing 1 each 3 10/22/20 22 023 aspirin 81 mg enteric coated tablet Take 1 tablet (81 mg total) by mouth every morning 01/01/20 23 024 atorvastatin (LIPITOR) 40 mg tabletIndications:AML (acute myeloid leukemia) in remission ([facility]),Type 2 diabetes mellitus with hyperglycemia, with long-term current use of insulin ([facility]),Ptpoa-ldliab-gjcw disease ([facility]),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[facility]),Pure hypercholesterolemia Take 1 tablet (40 mg total) by mouth daily 30 tablet 6 01/15/20 20 024 blood-glucose meter miscIndications:Type 2 diabetes mellitus with hyperosmolarity without coma, with long-term current use of insulin ([facility]) 1 Device 3 (three) times [...] (acute myeloid leukemia) in remission ([facility]),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[facility]),Vitamin D deficiency TAKE 1 CAPSULE BY MOUTH ONCE A WEEK DIRECTED 12 capsule 3 10/24/20 21 024 flash glucose sensor (FreeStyle Evaristo 2 Sensor) kit Change sensor every 14 days 2 kit 11 03/17/20 23 024 bdqanemhwub-ljntnrfic-rt lanter (Trelegy Ellipta) 200-62.5-25 mcg inhalerIndications:Chron ic obstructive pulmonary disease, unspecified COPD type ([facility]) Inhale 1 puff daily 60 each 3 05/02/20 23 023 furosemide (LASIX) 20 mg tabletIndications:Type 2 diabetes mellitus with hyperosmolarity without coma, with long-term current use of insulin ([facility]) Take 1 tablet (20 mg total) by mouth daily As needed. 30 tablet 01/15/20 20 024 gabapentin (NEURONTIN) 300 mg capsuleIndications:AML (acute myeloid leukemia) in remission ([facility]) Take 1 capsule (300 mg total) by mouth 4 (four) times a day 120 capsule 1 03/25/20 23 023 insulin glargine (LANTUS, BASAGLAR) 100 unit/mL (3 mL) pen for injectionIndications:Typ e 2 diabetes mellitus with hyperosmolarity without coma, with long-term current use of insulin ([facility]) INJECT 15 UNITS NIGHTLY SUB-Q. 1 pen 5 02/04/20 21 024 insulin lispro (HumaLOG, ADMELOG) 100 unit/mL pen for injectionIndications:Typ e 2 diabetes mellitus with hyperosmolarity without coma, with long-term current use of insulin ([facility]) INJECT 5-10 UNITS TID WITH MEALS PLUS SLIDING SCALE. TDD OF 35 UNITS. 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),Ipkyu-chhvnh-lhud disease (HCC) TAKE 2 TABLETS(1000 MG) BY [...] pulmonary disease, unspecified COPD type ([facility]) Take 40mg (4 tablets) daily [...] filedocumented in this encounter Care Teams Electrical Accessories Assembler Relationship Specialty Start Date End Date Kirt Lindsay DO PCP - General Internal Medicine 02/02/21 Josué Del Valle MD PhD Medical Oncologist/Traveling Inventory Associate Medical Oncology 08/26/19 Tay Charlton MD Consulting Physician Gastroenterology 12/03/21 06/11/23 Halie Khan MD [address] [facility] [address] [address] [place], [place] [address] Consulting Physician Pulmonary Disease 12/12/21 3 Ant Starks MD [address] [place] [address] Consulting Physician Transplant Hepatology 01/12/22 documented as of this encounter
--- OUTSIDE RECORDS SUMMARY | 2024-11-22 12:55 | XMS_ITS | Encounter Summary ---
Author Organization [facility] Address [address] [place] [address] Phone Care Team Providers Care Society Reporter Name Role Phone Josué Del Valle MD PhD Unavailable Kirt Lindsay DO Primary Care Provider [phone] Tay Charlton MD Unavailable [phone] Halie Khan MD Unavailable [phone] StarksAnt goldman MD Unavailable [phone] Encounter Details Date Type Department Care Team (Late st Contact Info) Description 03/05/2023 Telephone [facility] Bone Marrow Transplant [address] [facility] 7th Floor, [place] [address] Josué Del Valle MD PhD [address] DIV BONE MARROW TRANSPLANT[address] [place] [address] Social History Tobacco Use Types [...] on file 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 They will be faxing paperwork to get prescriptions changed to their pharmacy. documented in this encounter Plan of Treatment Not on file documented as of this encounter Visit Diagnoses Not on filedocumented in this encounter Care Teams Society Reporter Relationship Specialty Start Date End Date Kirt Lindsay DO PCP - General Internal Medicine 02/02/21 Josué Del Valle MD PhD Medical Oncologist/Aligning Checker Medical Oncology 08/26/19 Tay Charlton MD Consulting Physician Gastroenterology 12/03/21 06/11/23 Halie Khan MD [address] [facility] [address] [place] [address] Consulting Physician Pulmonary Disease 12/12/21 3 Ant Starks MD [address] [facility] [address] [place] [address] Consulting Physician Transplant Hepatology 01/12/22 documented as of this encounter
--- OUTSIDE RECORDS SUMMARY | 2024-11-22 12:55 | XMS_ITS | Encounter Summary ---
Author Organization [facility] Address [address] [place] [address] Phone Care Team Providers Care Records And Information Manager Name Role Phone Josué Del Valle MD PhD Unavailable [phone] Kirt Lindsay DO Primary Care Provider [phone] Tay Charlton MD Unavailable Halie Khan MD Unavailable [phone] StarksAnt goldman MD Unavailable [phone] Encounter Details Date Type Department Care Team (Late st Contact Info) Description 03/26/2023 Telephone [facility] Oncology [address] [facility] Advanced [facility] 7th [place] [address] [place] [address] Irina Conrad Social History Tobacco [...] on file 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 Gender Identity Not on file Sexual Orientation Not on file documented as of this encounter Miscellaneous Notes * Telephone Encounter - Irina Conrad - 03/26/2023 10:16 AM CDT She is refaxing request documented in this encounter Plan of Treatment Not on file documented as of this encounter Visit Diagnoses Not on filedocumented in this encounter Care Teams Records And Information Manager Relationship Specialty Start Date End Date Kirt Lindsay DO PCP - General Internal Medicine 02/02/21 Josué Del Valle MD PhD Medical Oncologist/Chinchilla Machine Operator Medical Oncology 08/26/19 Tay Charlton MD Consulting Physician Gastroenterology 12/03/21 06/11/23 Halie Khan MD [address] [id number] Consulting Physician Pulmonary Disease 12/12/21 3 Ant Starks MD [address] [address] Consulting Physician Transplant Hepatology 01/12/22 documented as of this encounter
--- OUTSIDE RECORDS SUMMARY | 2024-11-22 12:55 | XMS_ITS | Encounter Summary ---
Author Organization [facility] Address [address] [place] [address] Phone Care Team Providers Care Senior Electrical Designer Name Role Phone Josué Del Valle MD PhD Unavailable [phone] Kirt Lindsay DO Primary Care Provider [phone] Tay Charlton MD Unavailable [phone] Halie Khan MD Unavailable [phone] StarksAnt goldman MD Unavailable [phone] Reason for Visit * Reason Onset Date Comments Coordinating Appointments 02/18/2023 DME 02/18/2023 Wilfredostyle Evaristo - Jobtart Encounter Details Date Type Department Care Team (Late st Contact Info) Description 02/18/2023 Telephone [facility] Endocrinology Metabolism and Lipid [address] [facility] Advanced Medicine 13th [place] [address] [place] [address] Bonnie Lara, RN Coordinating Appointments; DME (Wilfredostvianca Carrilloe - Wellsdamari) Social History Tobacco Use [...] on file 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 Pt aware of scheduling. * Telephone Encounter - Bonnie Lara RN - 02/18/2023 1:16 PM CDT Images from the original note were not included. Submitted orders for Freestyle Evaristo 2 to [facility] via [facility] documented in this encounter Plan of Treatment Not on file documented as of this encounter Visit Diagnoses Diagnosis Other osteoporosis without current pathological fracture- Primary documented in this encounter Care Teams Senior Electrical Designer Relationship Specialty Start Date End Date Kirt Lindsay DO PCP - General Internal Medicine 02/02/21 Josué Del Valle MD PhD Medical Oncologist/Destination Imagination Coordinator Medical Oncology 08/26/19 Tay Charlton MD Consulting Physician Gastroenterology 12/03/21 06/11/23 Halie Khan MD [address] [id number] Consulting Physician Pulmonary Disease 12/12/21 3 Ant Starks MD [address] [id number] Consulting Physician Transplant Hepatology 01/12/22 documented as of this encounter
--- OUTSIDE RECORDS SUMMARY | 2024-11-22 12:55 | XMS_ITS | Encounter Summary ---
Author Organization [facility] Address [address] [facility] [address] [place] [address] Phone Care Team Providers Care Veneer Sander Name Role Phone Josué Del Valle MD PhD Unavailable [phone] Kirt Lindsay DO Primary Care Provider [phone] Tay Charlton MD Unavailable [phone] Halie Khan MD Unavailable [phone] [place]Ant MD Unavailable [phone] Reason for Visit * Reason Comments Osteopenia * Diagnostic Imaging (Routine) - Closed Specialty Diagnoses / Procedures Referred By Contac t Referred To Contact Diagnoses H/O allogeneic bone marrow transplant (HCC) Other osteoporosis without current pathological fracture Procedures Dexa Axial Skeleton Bone Density [address] MD Phone: tel: fax: [facility] (All Locations) Referral ID Status Reason Start Date Expiration Date Visits Re quested Visits Authorized [id number] Closed 02/15/2023 03/16/2024 1 1 Encounter Details Date Type Department Care Team (Latest Contact Info) Description 02/18/2023 11:10 AM CDT Clinical Support [facility] [address] [facility] 5th [place] [address] [place] [address] H/O allogeneic bone marrow transplant (HCC); Other [...] on file 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 ?? Based on machine cross-calibration [...] by the International Society of Clinical Densitometry. [id number] Ave Montejo MD IMG DXA PROCEDURES Final Result documented in this encounter Visit Diagnoses Diagnosis H/O allogeneic bone marrow transplant (HCC) Other osteoporosis without current pathological fracture Osteopenia of left hip Encounter for monitoring zoledronic acid therapy documented in this encounter Care Teams Veneer Sander Relationship Specialty Start Date End Date Kirt Lindsay DO PCP - General Internal Medicine 02/02/21 Josué Del Valle MD PhD Medical Oncologist/Web Site Specialist Medical Oncology 08/26/19 Tay Charlton MD Consulting Physician Gastroenterology 12/03/21 06/11/23 Halie Khan MD [address] [address] Consulting Physician Pulmonary Disease 12/12/21 3 Ant Starks MD [address] [address] Consulting Physician Transplant Hepatology 01/12/22 documented as of this encounter
--- OUTSIDE RECORDS SUMMARY | 2024-11-22 12:55 | XMS_ITS | Encounter Summary ---
Author Organization [facility] Address [address] [facility] [address] [place] [address] Phone Care Team Providers Care Char Filter Operator Helper Name Role Phone Josué Del Valle MD PhD Unavailable [phone] Kirt Lindsay DO Primary Care Provider [phone] Tay Charlton MD Unavailable [phone] Halie Khan MD Unavailable [phone] StarksAnt goldman MD Unavailable [phone] Reason for Visit * Reason Comments DM Foot Care * Endocrinology (Routine) - Closed Specialty Diagnoses / Procedures Referred By Contac t Referred To Contact Endocrinology Diagnoses Vitamin D deficiency Type 2 diabetes mellitus with other kidney complication, unspecified whether group home insulin use (HCC) Other osteoporosis without current pathological fracture Other hyperlipidemia Kirt Lindsay DO Phone: tel: fax: [facility] (All Locations) Referral ID Status Reason Start Date Expiration Date V isits Requested Visits Authorized [id number] Closed Specialty Services Required 02/15/2023 03/16/2024 25 25 Encounter Details Date Type Department Care Team (Latest Contact Info) Description 03/25/2023 11:00 AM CDT Clinical Support [facility] Endocrinology Metabolism and Lipid [address] [facility] 13th [place] [address] [place] [address] Quiana Rodriguez RN Type 2 diabetes mellitus [...] on file 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 Gender Identity Not on file Sexual [...] complication, with long-term current use of insulin ([facility]) ([facility])- Primary documented in this encounter Care Teams Char Filter Operator Helper Relationship Specialty Start Date End Date Kirt Lindsay DO PCP - General Internal Medicine 02/02/21 Josué Del Valle MD PhD Medical Oncologist/Audio Engineer Medical Oncology 08/26/19 Tay Charlton MD Consulting Physician Gastroenterology 12/03/21 06/11/23 Halie Khan MD [address] [address] Consulting Physician Pulmonary Disease 12/12/21 3 Ant Starks MD [address] [address] Consulting Physician Transplant Hepatology 01/12/22 documented as of this encounter
--- OUTSIDE RECORDS SUMMARY | 2024-11-22 12:55 | XMS_ITS | Encounter Summary ---
Author Organization [facility] Address [address] [facility] [address] [place] [address] Phone Care Team Providers Care Candy Spreader Name Role Phone Josué Del Valle MD PhD Unavailable [phone] Kirt Lindsay DO Primary Care Provider [phone] Tay Charlton MD Unavailable [phone] aHlie Khan MD Unavailable [phone] StarksAnt goldman MD Unavailable [phone] Reason for Visit * Reason Comments Diabetes Type 2 * Endocrinology (Routine) - Closed Specialty Diagnoses / Procedures Referred By Contac t Referred To Contact Endocrinology Diagnoses Vitamin D deficiency Type 2 diabetes mellitus with other kidney complication, unspecified whether long distance billing operator insulin use (HCC) Other osteoporosis without current pathological fracture Other hyperlipidemia Kirt Lindsay DO Phone: tel: fax: [facility] (All Locations) Referral ID Status Reason Start Date Expiration Date V isits Requested Visits Authorized [id number] Closed Specialty Services Required 02/15/2023 03/16/2024 25 25 Encounter Details Date Type Department Care Team (Latest Contact Info) Description 04/19/2023 9:00 AM CDT Clinical Support [facility] Endocrinology Metabolism and Lipid [address] 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 He brought his own personal [employer] Evaristo [facility]. Current Diabetes Meds/Insulin Regimen is: Basal: Lantus [...] 27 03/25/2023 No results found for: MICROALBUR, [id number] No results found for: MICROALBCREA Lab Results [...] mg/dl. High alert set for 250 mg/dl Ada or mauro on smart phone Scanning with [...] with Dr Montejo 06/25/[address] ,[facility] Diabetes Waddy Referring provider has access to [facility] assessment, education plan and outcomes via [employer] EMR. documented in this encounter Plan of Treatment Not on file documented as of this encounter Visit Diagnoses Diagnosis Type 2 diabetes mellitus with hyperosmolarity without coma, with long-term current use of insulin (HCC)- Primary documented in this encounter Care Teams Candy Spreader Relationship Specialty Start Date End Date Kirt Lindsay DO PCP - General Internal Medicine 02/02/21 Josué Del Valle MD PhD Medical Oncologist/Scientific Aide Medical Oncology 08/26/19 Tay Charlton MD Consulting Physician Gastroenterology 12/03/21 06/11/23 Halie Khan MD [address] [address] Consulting Physician Pulmonary Disease 12/12/21 3 Ant Starks MD [address] [address] Consulting Physician Transplant Hepatology 01/12/22 documented as of this encounter
--- OUTSIDE RECORDS SUMMARY | 2024-11-22 12:55 | XMS_ITS | Encounter Summary ---
Author Organization [facility] Address [address] [place] [address] Phone Care Team Providers Care Foreign Trade Teacher Name Role Phone Josué Del Valle MD PhD Unavailable [phone] Kirt Lindsay DO Primary Care Provider [phone] Tay Charlton MD Unavailable [phone] Halie Khan MD Unavailable [phone] [place]Ant MD Unavailable [phone] Reason for Visit * Episode Based Medications (Routine) - Closed Specialty Diagnoses / Procedures Referred By Contac t Referred To Contact Diagnoses H/O allogeneic bone marrow transplant (HCC) Other osteoporosis without current pathological fracture Ave Montejo MD [address] [facility] [address] [place] [address] Phone: tel: fax: [facility] Infusion Therapy [address] [facility] 5th [place] [address] [place] [address] Phone: tel: fax: Referral ID Status Reason Start Date Expiration Date Visits Re quested Visits Authorized [id number] Closed 03/13/2023 03/13/2024 2 2 Encounter Details Date Type Department Care Team (Late st Contact Info) Description 03/25/2023 12:45 PM CDT Infusion [facility] Infusion Therapy [address] 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 Gender Identity Not on file Sexual [...] Action Action Date Dose Rate Site zoledronic scvx-nvmxuhbO-hlrfa (RECLAST) 5 mg/100 mL premix 5 mg [...] Last Ordered Date First Ordered Date zoledronic kbvg-eosnnhhO-tia er (RECLAST) 5 mg/100 mL premix 5 mg 1 03/25/2023 documented in this encounter Care Teams Foreign Trade Teacher Relationship Specialty Start Date End Date Kirt Lindsay, PCP - General Internal Medicine 02/02/21 Josué Del Valle MD PhD Medical Oncologist/Stave Log Cut Off Saw Operator Medical Oncology 08/26/19 Tay Charlton MD Consulting Physician Gastroenterology 12/03/21 06/11/23 Halie Khan MD [address] [address] Consulting Physician Pulmonary Disease 12/12/21 3 Ant Starks MD [address] [address] Consulting Physician Transplant Hepatology 01/12/22 documented as of this encounter
--- OUTSIDE RECORDS SUMMARY | 2024-11-22 12:55 | XMS_ITS | Encounter Summary ---
Author Organization [facility] Address [address] [place] [address] Phone Care Team Providers Care Coordinating Producer Name Role Phone Josué Del Valle MD PhD Unavailable [phone] Kirt Lindsay DO Primary Care Provider [phone] Tay Charlton MD Unavailable [phone] Halie Khan MD Unavailable [phone] StarksAnt goldman MD Unavailable [phone] Encounter Details Date Type Department Care Team (Late st Contact Info) Description 02/14/2023 Orders Only [facility] Bone Marrow Transplant [address] [facility] Advanced Medicine 7th Floor, [place] [address] Damari Sanchez, RN [address] [place] [address] Chronic obstructive pulmonary disease, unspecified COPD type [...] on file 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 ??Please verify that the correct immunosuppressant test was requested. Interpretive Data Testing performed by liquid chromatography-tandem mass spectrometry. ??Therapeutic concentrations vary depending on type of transplanted organ and time elapsed since transplant. ??Typical trough concentrations range from 5-15 ng/mL. ??This test was developed and its performance characteristics determined by the [facility] consistent with CLIA requirements. ??This test has not been cleared or approved by the [place] Food and Drug administration. ??Current interpretive data last reviewed 2020. 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) documented in this encounter Care Teams Coordinating Producer Relationship Specialty Start Date End Date Kirt Lindsay DO PCP - General Internal Medicine 02/02/21 Josué Del Valle MD PhD Medical Oncologist/Fruit Farmworker Medical Oncology 08/26/19 Tay Charlton MD Consulting Physician Gastroenterology 12/03/21 06/11/23 Halie Khan MD [address] [facility] [address] [place], [place] [id number] Consulting Physician Pulmonary Disease 12/12/21 3 Ant Starks MD [address] [facility] [address] [place] [address] Consulting Physician Transplant Hepatology 01/12/22 documented as of this encounter
--- OUTSIDE RECORDS SUMMARY | 2024-11-22 12:55 | XMS_ITS | Encounter Summary ---
Author Organization [facility] Address [address] [place] [address] Phone Care Team Providers Care Skoog Machine Operator Name Role Phone Josué Del Valle MD PhD Unavailable [phone] Kirt Lindsay DO Primary Care Provider [phone] Tay Charlton MD Unavailable [phone] Halie Khan MD Unavailable [phone] StarksAnt goldman MD Unavailable [phone] Encounter Details Date Type Department Care Team (Late st Contact Info) Description 03/06/2023 Orders Only [facility] Bone Marrow Transplant [address] [facility] Advanced Medicine 7th Floor, [place] [address] Damari Sanchez, RN [address] [place] [address] Social History Tobacco Use Types Packs/Day Years [...] on file 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 Gender Identity Not on file Sexual [...] on filedocumented in this encounter Care Teams Skoog Machine Operator Relationship Specialty Start Date End Date Kirt Lindsay DO PCP - General Internal Medicine 02/02/21 Josué Del Valle MD PhD Medical Oncologist/Corporate Meeting Planner Medical Oncology 08/26/19 Tay Charlton MD Consulting Physician Gastroenterology 12/03/21 06/11/23 Halie Khan MD [address] [address] Consulting Physician Pulmonary Disease 12/12/21 3 Ant Starks MD [address] [address] Consulting Physician Transplant Hepatology 01/12/22 documented as of this encounter
--- OUTSIDE RECORDS SUMMARY | 2024-11-22 12:55 | XMS_ITS | Encounter Summary ---
Author Organization [facility] Address [address] [facility] [address] [place] [address] Care Team Providers Care Quarantine Officer Name Role Phone Josué Del Valle MD PhD Unavailable [phone] Kirt Lindsay DO Primary Care Provider [phone] Tay Charlton MD Unavailable [phone] Halie Khan MD Unavailable [phone] McqueeneyAnt MD Unavailable [phone] Encounter Details Date Type Department Care Team (Late st Contact Info) Description 01/02/2023 Orders Only [facility] Cardiology [address] [facility] [address] [place] [address] Cruz Breen MD [address] [place] [address] Social History Tobacco Use Types [...] on file 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 Gender Identity Not on file Sexual [...] on filedocumented in this encounter Care Teams Quarantine Officer Relationship Specialty Start Date End Date Kirt Lindsay DO PCP - General Internal Medicine 02/02/21 Josué Del Valle MD PhD Medical Oncologist/Vacuum Truck Driver Medical Oncology 08/26/19 Tay Charlton MD Consulting Physician Gastroenterology 12/03/21 06/11/23 Halie Khan MD [address] [place] [address] Consulting Physician Pulmonary Disease 12/12/21 3 Ant Starks MD [address] [place] [address] Consulting Physician Transplant Hepatology 01/12/22 documented as of this encounter
--- OUTSIDE RECORDS SUMMARY | 2024-11-22 12:55 | XMS_ITS | Encounter Summary ---
Author Organization [facility] Address [address] [place] [address] Phone Care Team Providers Care Lighter Captain Name Role Phone Josué Del Valle MD PhD Unavailable Kirt Lindsay DO Primary Care Provider [phone] Tay Charlton MD Unavailable [phone] Halie Khan MD Unavailable [phone] StarksAnt goldman MD Unavailable [phone] Encounter Details Date Type Department Care Team (Late st Contact Info) Description 05/09/2023 Telephone [facility] Bone Marrow Transplant [address] [facility] Advanced Medicine 7th Floor, [place] [address] Josué Del Valle MD PhD [address] DIV BONE MARROW TRANSPLANT[address] [place] [address] Social History Tobacco Use Types [...] file 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 Gender Identity Not on file Sexual Orientation [...] on filedocumented in this encounter Care Teams Lighter Captain Relationship Specialty Start Date End Date iKrt Lindsay DO PCP - General Internal Medicine 02/02/21 Josué Del Valle MD PhD Medical Oncologist/Motor And Generator Brush Cutter Medical Oncology 08/26/19 Tay Charlton MD Consulting Physician Gastroenterology 12/03/21 06/11/23 Halie Khan MD [address] [address] Consulting Physician Pulmonary Disease 12/12/21 3 Ant Starks MD [address] [address] Consulting Physician Transplant Hepatology 01/12/22 documented as of this encounter
--- OUTSIDE RECORDS SUMMARY | 2024-11-22 12:55 | XMS_ITS | Encounter Summary ---
Author Organization [facility] Address [address] [place] [address] Phone Care Team Providers Care Restaurant Crew Person Name Role Phone Josué Del Valle MD PhD Unavailable [phone] Kirt Lindsay DO Primary Care Provider [phone] Tay Charlton MD Unavailable [phone] Halie Khan MD Unavailable [phone] StarksAnt goldman MD Unavailable [phone] Encounter Details Date Type Department Care Team (Late st Contact Info) Description 03/25/2023 Orders Only [facility] Bone Marrow Transplant [address] [facility] Advanced Medicine 7th Floor, [place] [address] Josué Del Valle MD PhD [address] DIV IM BONE MARROW TRANSPLANT[address] [place] [address] AML (acute myeloid leukemia) in [...] file 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 Gender Identity Not on file Sexual [...] documented as of this encounter Care Teams Restaurant Crew Person Relationship Specialty Start Date End Date Kirt Lindsay DO PCP - General Internal Medicine 02/02/21 Josué Del Valle MD PhD Medical Oncologist/Director Staffing Medical Oncology 08/26/19 Tay Charlton MD Consulting Physician Gastroenterology 12/03/21 06/11/23 Halie Khan MD [address] [address] Consulting Physician Pulmonary Disease 12/12/21 3 Ant Starks MD [address] [facility] [address] [place] [address] Consulting Physician Transplant Hepatology 01/12/22 documented as of this encounter
--- OUTSIDE RECORDS SUMMARY | 2024-11-22 12:55 | XMS_ITS | Encounter Summary ---
Author Organization [facility] Address [address] [facility] [address] [place] [address] Phone Care Team Providers Care Presidential Support Specialist Name Role Phone Josué Del Valle MD PhD Unavailable [phone] Kirt Lindsay DO Primary Care Provider [phone] Tay Charlton MD Unavailable [phone] Halie Khan MD Unavailable [phone] ValparaisoAnt MD Unavailable [phone] Reason for Referral * Diagnostic Imaging (Routine) - Closed Specialty Diagnoses / Procedures Referred By Contac t Referred To Contact Diagnoses H/O allogeneic bone marrow transplant (HCC) Other osteoporosis without current pathological fracture Procedures Dexa Axial Skeleton Bone Density [address] MD Phone: tel: fax: [facility] (All Locations) Referral ID Status Reason Start Date Expiration Date Visits Re quested Visits Authorized [id number] Closed 02/15/2023 03/16/2024 1 1 Encounter Details Date Type Department Care Team (Late st Contact Info) Description 02/15/2023 Orders Only [facility] Endocrinology Metabolism and Lipid [address] [facility] 13th [place] [address] [place] [id number] Bonnie Lara RN H/O allogeneic bone marrow transplant (HCC) (Primary Dx); Other osteoporosis without current pathological fracture; Type 2 diabetes mellitus with 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 ?? Based on machine cross-calibration [...] by the International Society of Clinical Densitometry. [id number] us Ave Montejo MD IMG DXA PROCEDURES Final Result * Lipid panel (02/18/2023 9:56 AM CDT) [facility] Cholesterol 122 30 - 199 mg/dL ZULEMA [...] on 2018. LDL, calculated 56 <=129 mg/dL [facility] Comment: Interpretive Data Ages < or = [...] on 2018. Non-HDL Cholesterol 82 mg/dL ZULEMA [facility] Comment: Interpretive Data Ages < or [...] last revised on 2018. Chol/HDL ratio 3 [facility] Blood 02/18/2023 9:56 AM CDT 02/18/2023 10:[address] Montejo MD LAB BLOOD ORDERABLES Final Resu lt Performing Organization Address City/[facility]/ZIP Co de Phone Number [facility] Department of [place] [address] * Vitamin D 25 hydroxy (02/18/2023 9:56 AM CDT) Vitamin D 25-OH 46 30 - 80 ng/mL [facility] Blood 02/18/2023 9:56 AM CDT 02/18/2023 10:[address] Montejo MD LAB BLOOD ORDERABLES Final Resu lt Performing Organization Address [facility] Co de Phone Number [facility] of [place] [address] * (ABNORMAL) TSH (02/18/2023 9:56 AM CDT) Thyroid Stimulating Hormone 0.29(L) 0.30 - 4.20 mcIUnit/mL [facility] Blood 02/18/2023 9:56 AM CDT 02/18/2023 10:[address] Montejo MD LAB BLOOD ORDERABLES Final Resu lt Performing Organization Address City/[facility] Co de Phone Number [facility] [place] [address] * T4, free (02/18/2023 9:56 AM CDT) Free T4 1.41 0.90 - 1.70 ng/dL [facility] Blood 02/18/2023 9:56 AM CDT 02/18/2023 10:[address] Montejo MD LAB BLOOD ORDERABLES Final Resu lt [facility]MA [facility] Department [place] [address] documented in this encounter Visit Diagnoses Diagnosis H/O allogeneic bone marrow transplant (HCC)- Primary Other osteoporosis without current pathological fracture Type 2 diabetes mellitus with hyperosmolarity 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, with long-term current use of insulin (HCC) H/O allogeneic bone marrow transplant (HCC) Other osteoporosis without current pathological fracture Osteopenia of left hip Encounter for monitoring zoledronic acid therapy documented in this encounter Care Teams Presidential Support Specialist Relationship Specialty Start Date End Date Kirt Lindsay DO PCP - General Internal Medicine 02/02/21 Josué Del Valle MD PhD Medical Oncologist/Home Health Rn Medical Oncology 08/26/19 Tay Charlton MD Consulting Physician Gastroenterology 12/03/21 06/11/23 Halie Khan MD [address] [address] Consulting Physician Pulmonary Disease 12/12/21 3 Ant Starks MD [address] [address] Consulting Physician Transplant Hepatology 01/12/22 documented as of this encounter
--- OUTSIDE RECORDS SUMMARY | 2024-11-22 12:55 | XMS_ITS | Encounter Summary ---
Author Organization [facility] Address [address] [facility] [address] [place] [address] Care Team Providers Care Harness And Bag Inspector Name Role Phone Josué Del Valle MD PhD Unavailable [phone] Kirt Lindsay DO Primary Care Provider [phone] Tay Charlton MD Unavailable [phone] Halie Khan MD Unavailable [place] MD Unavailable [phone] Encounter Details Date Type Department Care Team (Late st Contact Info) Description 01/01/2023 Orders Only [facility] Cardiology [address] [facility] [address] [place] [address] Chin La MD [address] [address] Social History Tobacco Use Types [...] on file 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 Gender Identity Not on file Sexual Orientation Not on file documented as of this encounter Plan of Treatment Not on file documented as of this encounter Procedures Procedure Name Priority Date/Time Associated Diagnosis Comments CARDIOLOGY DOCUMENT SCAN Routine 01/01/2023 documented in this encounter Results * Cardiology Document Scan (01/01/2023) Anatomical Region Laterality Modality Other Manuela Olmdeo VP [employer] CV CARDIAC SERVICES PROCEDUR ES Final Result documented in this encounter Visit Diagnoses Not on filedocumented in this encounter Care Teams Harness And Bag Inspector Relationship Specialty Start Date End Date Kirt Lindsay DO PCP - General Internal Medicine 02/02/21 Josué Del Valle MD PhD Medical Oncologist/Building Components Designer Medical Oncology 08/26/19 Tay Charlton MD Consulting Physician Gastroenterology 12/03/21 06/11/23 Halie Khan MD [address] [place] [address] Consulting Physician Pulmonary Disease 12/12/21 3 Ant Starks MD [address] [place] [address] Consulting Physician Transplant Hepatology 01/12/22 documented as of this encounter
--- OUTSIDE RECORDS SUMMARY | 2024-11-22 12:55 | XMS_ITS | Encounter Summary ---
Author Organization [facility] Address [address] [facility] [address] [place] [address] Phone Care Team Providers Care Fine Craft Artist Name Role Phone Josué Del Valle MD PhD Unavailable [phone] Kirt Lindsay DO Primary Care Provider [phone] Tay Charlton MD Unavailable [phone] Halie Khan MD Unavailable [phone] [place]Ant MD Unavailable [phone] Reason for Visit * Endocrinology (Routine) - Closed Specialty Diagnoses / Procedures Referred By Contac t Referred To Contact Endocrinology Diagnoses Vitamin D deficiency Type 2 diabetes mellitus with other kidney complication, unspecified whether chcf insulin use (HCC) Other osteoporosis without current pathological fracture Other hyperlipidemia Kirt Lindsay DO Phone: tel: fax: [facility] (All Locations) Referral ID Status Reason Start Date Expiration Date V isits Requested Visits Authorized [id number] Closed Specialty Services Required 02/15/2023 03/16/2024 25 25 Encounter Details Date Type Department Care Team (Latest Contact Info) Description 02/18/2023 11:40 AM CDT Office Visit [facility] Endocrinology Metabolism and Lipid [address] 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 Gender Identity Not on file Sexual [...] Continue current insulin regimen - Will send [employer] Libre2 and you have the mauro on your phone now - Will see you back in 3 weeks for your Reclast infusion and sensor teaching - I will see you back in 4-6 months for your sugars documented in this encounter Ordered Prescriptions Prescription Sig Dispense Quantity Refills Last Filled Start Date End Date flash glucose scanning reader (FreeStyle Evaristo 2 Norvell) [facility] Use to test blood glucose continuously 1 [...] his lungs feel more tight and his assistant professor of physics prescribes a burst. Insulin regimen: - Basaglar [...] mellitus with other kidney complication, unspecified whether chcf insulin use (HCC) POCT GLUCOSE Routine 02/18/2023 12:01 PM CDT Type 2 diabetes mellitus with other kidney complication, unspecified whether chcf insulin use (HCC) documented in this encounter [...] mellitus with other kidney complication, unspecified whether chcf insulin use (HCC)- Primary Vitamin D deficiency [...] 02/18/2023 documented in this encounter Care Teams Fine Craft Artist Relationship Specialty Start Date End Date Kirt Lindsay DO PCP - General Internal Medicine 02/02/21 Josué Del Valle MD PhD Medical Oncologist/Cash Posting Representative Medical Oncology 08/26/19 Tay Charlton MD Consulting Physician Gastroenterology 12/03/21 06/11/23 Halie Khan MD [address] [id number] Consulting Physician Pulmonary Disease 12/12/21 3 Ant Starks MD [address] [id number] Consulting Physician Transplant Hepatology 01/12/22 documented as of this encounter
--- OUTSIDE RECORDS SUMMARY | 2024-11-22 12:56 | XMS_ITS | Encounter Summary ---
Author Organization [facility] Address [address] [place] [address] Phone Care Team Providers Care Environmental Services Director Name Role Phone Josué Del Valle MD PhD Unavailable [phone] Kirt Lindsay DO Primary Care Provider [phone] Tay Charlton MD Unavailable [phone] Halie Khan MD Unavailable [phone] [place]oloaAnt MD Unavailable [phone] Reason for Visit * Oncology (Routine) - Closed Specialty Diagnoses / Procedures Referred By Contac t Referred To Contact Medical Oncology / Blood and Marrow Transplant Diagnoses AML (acute myeloid leukemia) in remission (HCC) [facility] Scheduling [address] [place] [address] Phone: tel: Josué Del Valle MD PhD [address] DIV IM BONE MARROW TRANSPLANT[address] [place] [address] Phone: tel: fax: Referral ID Status Reason Start Date Expiration Date V isits Requested Visits Authorized [id number] Closed Specialty Services Required 06/05/2021 11/17/2023 99 99 Encounter Details Date Type Department Care Team (Late st Contact Info) Description 10/22/2022 10:00 AM CARPET JOURNEYMAN Office Visit [facility] Bone Marrow Transplant [address] [facility] 7th Floor, [place] [address] Josué Del Valle MD PhD [address] IM BONE MARROW TRANSPLANT[address] [place] [address] 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) (Primary Dx); Prbwf-dldhno-jctg disease (HCC); H/O allogeneic bone marrow transplant (HCC); Chronic obstructive pulmonary disease, unspecified COPD type ([facility]) Social History Tobacco Use Types Packs/Day Years [...] on file Legal Sex Male 10:48 AM CARPET JOURNEYMAN Gender Identity Not on file Sexual Orientation Not on file documented as of this encounter Last Filed Vital Signs Vital Sign Reading Time Taken Comments Blood Pressure 168/93 10/22/2022 9:03 AM CARPET JOURNEYMAN Pulse 64 10/22/2022 9:03 AM CARPET JOURNEYMAN Temperature 36.1 ??C (97 ??F) 10/22/2022 9:03 AM CARPET JOURNEYMAN Respiratory Rate 18 10/22/2022 9:03 AM CARPET JOURNEYMAN Oxygen Saturation 99% 10/22/2022 9:03 AM CARPET JOURNEYMAN Inhaled Oxygen Concentration - - Weight 65.4 kg (144 lb 3.2 oz) 10/22/2022 9:03 A M CARPET JOURNEYMAN Height - - Body Mass Index 20.69 [...] consolidation x3. 2. [facility] [address]. 3. Relapsed disease, status post [facility]. 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 TRANSPLANT HISTORY: Status post an allogeneic transplant with busulfan and Cytoxan on the [facility] allogeneic study with hissister, 08/27 match; with day 0 on 11/09/2009. INTERVAL HISTORY: Bri carries a diagnosis of AML. He is 4730 days post matched sib allo transplant from a sister after Bu/Cy conditioning regimen on 11/09/2009. He has chronic njgbm-hbowqg-krmz disease. He is on MMF 1 g [...] conditioning regimen 4730days ago. 3. Extensive chronic uwakf-zzqxyp-kbuu disease involving his lungs, eyes, and mouth. [...] he cannot afford his inhaler. He has [employer], and he needs an inhaler that does not run out immediately, and the albuterol inhaler costs him 50 dollars every time he gets it. He cannot afford it, and so we will see if we can get him an alternative. ELECTRONICALLY SIGNED - 10/22/2022 02:38 PM Josué Del Valle M.D., Ph.D. Chief, Division of Oncology/pbx operator Section of BMT & Leukemia CHRISTOPHER/ethan ET JOURNEYMAN documented in this encounter Nursing Notes * Anaid Polanco RN - 10/22/2022 10:00 AM CST Patient seen in clinic with Dr. Del Valle TODAY: [phone] Per patient, copay for albuterol inhaler is too expensive at $50/month. Increased trelegy and sent another script for albuterol. Provided GoodRx coupon as well. ROV 3 months ET JOURNEYMAN ET JOURNEYMAN documented in this encounter Plan of Treatment [...] performed by the MICHEL [address] CMV Test ([employer] Testing performed at [facility]. Current interpretive data was last revised on 2021. Blood 02/18/2023 9:56 AM CDT 02/18/2023 10:52 AM CDT Narcisa Kilgore STUDIO COORDINATOR LAB MICROBIOLOGY - GENERA L ORDERABLES Final Result [facility] Department [place] [address] * Lactate dehydrogenase (LD) (02/18/2023 9:56 AM CDT) Lactate dehydrogenase (LDH) 174 100 - 250 Units/L ZULEMA [facility] Comment:Testing performed by : [facility], [address] [place] [phone] Blood 02/18/2023 9:56 AM CDT 02/18/2023 10:10 AM CDT us Narcisa Kilgore STUDIO COORDINATOR LAB BLOOD ORDERABLES Pilar armas Result [facility] Department [place] [address] * (ABNORMAL) Comprehensive metabolic panel (02/18/2023 9:56 AM CDT) Sodium 140 135 - 145 mmol/L ZULEMA [facility] Comment:Testing performed by : [facility], [address] [place] [phone] Potassium, pl 4.5 3.3 - 4.9 mmol/L ZULEMA [facility] Comment:Testing performed by : [facility], [address] [place] [phone] Chloride 100 97 - 110 mmol/L [facility]MA [facility] Comment:Testing performed by : [facility], [address] [place] [phone] CO2 29 22 - 32 mmol/L Z[facility]LEMA [facility] Comment:Testing performed by : [facility], [address] [place] [phone] Anion gap 11 2 - 15 mmol/L ZULEMA [facility] Comment:Testing performed by : [facility], [address] [place] [phone] BUN 11 8 - 25 mg/dL CERAVTAR [facility] Comment:Testing performed by : [facility], [address] [place] [phone] Creatinine 0.90 0.80 - 1.30 mg/dL Z[facility]LEMA [facility] Comment:Testing performed by : [facility], [address] [place] [phone] Glucose 140 70 - 199 mg/dL [facility]ULE[facility] Comment: Interpretive Data Fasting glucose >/= [...] was last revised 2022. Testing performed by: [facility], [address] [place] [phone] Calcium 10.1 8.5 - 10.3 mg/dL Z[facility]MA [facility] Comment:Testing performed by : [facility], [address] [place] [phone] Bilirubin, total 0.3 0.1 - 1.2 mg/dL [facility]MA [facility] Comment:Testing performed by : [facility], [address] [place] [phone] Protein, pl 8.0 6.5 - 8.5 g/dL ZULEMA [facility] Comment:Testing performed by : [facility], [address] [place] [phone] Albumin 4.2 3.5 - 5.0 g/dL Z[facility]LEMA [facility] Comment:Testing performed by : [facility], [address] [place] [phone] Alk phos 143(H) 40 - 130 Units/L ZULEMA [facility] Comment:Testing performed by : [facility], [address] [place] [phone] ALT 11 7 - 55 Units/L [facility] Comment:Testing performed by : [facility], [address] [place] [phone] AST 21 10 - 50 Units/L [facility]MA [facility] Comment:Testing performed by : [facility], [address] [place] [phone] Blood 02/18/2023 9:56 AM CDT 02/18/2023 10:10 AM CDT us Narcisa Kilgore STUDIO COORDINATOR LAB BLOOD ORDERABLES Pilar l Result Z[facility]MA [facility] Department [place] [address] * (ABNORMAL) CBC with auto differential (02/18/2023 9:56 AM CDT) WBC 13.9(H) 3.8 - 9.8 K/cumm Z[facility]MA [facility] Comment:Testing performed by : [facility], [address] [place], [place] [phone] Hgb 13.7(L) 13.8 - 17.2 g/dL CERNER BJ Comment:Testing performed by : [facility], [address] [place], [place] [phone] Hct 39.9(L) 40.7 - 50.3 % [facility]ER [facility] Comment:Testing performed by : [facility], [address] [place] [address] Plt 367 140 - 440 K/cumm CERAVTAR BJ Comment:Testing performed by : [facility], [address] [place] [address] MPV 7.9 6.8 - 10.4 fL CERAVTAR BJ Comment:Testing performed by : [place] [address] RBC 3.82(L) 4.50 - 5.70 M/cumm CERAVTAR BJ Comment:Testing performed by : [place] [address] MCV 104.2(H) 80.0 - 97.6 fL CERAVTAR [facility]J Comment:Testing performed by : [place] [address] MCH 35.7(H) 26.7 - 33.7 pg CERNER [facility]J Comment:Testing performed by : [place] [address] MCHC 34.3 32.7 - 35.5 g/dL CERAVTAR [facility]J Comment:Testing performed by : [place] [address] RDW CV 12.8 11.8 - 14.6 % CERAVTAR [facility]J Comment:Testing performed by : [place] [address] NRBC abs 0.01 0.00 - 0.01 K/cumm CERAVTAR [facility]J Comment:Testing performed by : [place] [address] Blood 02/18/2023 9:56 AM CDT 02/18/2023 10:10 AM CDT us Narcisa Kilgore STUDIO COORDINATOR LAB BLOOD ORDERABLES Pilar armas Result [facility] Department [place] [address] documented in this encounter Visit Diagnoses Diagnosis AML (acute myeloid leukemia) in remission (HCC)- Primary Bvfez-maahec-tvjj disease (HCC) H/O allogeneic bone marrow transplant [...] 02/18/2023 documented in this encounter Care Teams Environmental Services Director Relationship Specialty Start Date End Date Kirt Lidnsay DO PCP - General Internal Medicine 02/02/21 Josué Del Valle MD PhD Medical Oncologist/Watch Case Polisher Medical Oncology 08/26/19 Tay Charlton MD Consulting Physician Gastroenterology 12/03/21 06/11/23 Halie Khan MD [address] [address] Consulting Physician Pulmonary Disease 12/12/21 3 Ant Starks MD [address] [facility] [address] [facility] [address] [place] [address] Consulting Physician Transplant Hepatology 01/12/22 documented as of this encounter
--- OUTSIDE RECORDS SUMMARY | 2024-11-22 12:56 | XMS_ITS | Encounter Summary ---
Author Organization [facility] Address [address] [place] [address] Phone Care Team Providers Care Milliner Helper Name Role Phone Josué Del Valle MD PhD Unavailable [phone] Kirt Lindsay DO Primary Care Provider [phone] Tay Charlton MD Unavailable [phone] Halie Khan MD Unavailable [phone] Ant Starks MD Unavailable [phone] Encounter Details Date Type Department Care Team (Late st Contact Info) Description 10/05/2022 Orders Only [facility] Bone Marrow Transplant [address] [facility] [address] [facility] 7th Floor, [place] [address] Josué Del Valle MD PhD [address] DIV IM BONE MARROW TRANSPLANT[address] [place] [address] 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); Nfyvt-jbdgbt-quns disease (HCC); H/O allogeneic bone marrow transplant [...] file Legal Sex Male 10:48 AM POWER SAW MECHANIC Gender Identity Not on file Sexual [...] AML (acute myeloid leukemia) in remission (HCC) Nsccb-xwuizf-wtrf disease (HCC) H/O allogeneic bone marrow transplant (HCC) documented in this encounter Discontinued Medications Medication Sig Discontinue Reason Start Date End Da te Trelegy Ellipta 100-62.5-25 mcg inhalerIndications:Bronc hospasm Prevention with COPD Inhale 1 puff daily Reorder 02/13/2022 10/05/2022 documented as of this encounter Care Teams Milliner Helper Relationship Specialty Start Date End Date Kirt Lindsay DO PCP - General Internal Medicine 02/02/21 Josué Del Valle MD PhD Medical Oncologist/Coding Analyst Medical Oncology 08/26/19 Tay Charlton MD Consulting Physician Gastroenterology 12/03/21 06/11/23 Halie Khan MD [address] [place] [address] Consulting Physician Pulmonary Disease 12/12/21 3 Ant Starks MD [address] [facility] [address] [facility] [address] [place] [address] Consulting Physician Transplant Hepatology 01/12/22 documented as of this encounter
--- OUTSIDE RECORDS SUMMARY | 2024-11-22 12:56 | XMS_ITS | Encounter Summary ---
Author Organization [facility] Healthcare Address [address] [place] [address] Care Team Providers Care Latent Print Examiner Name Role Phone Josué Del Valle MD PhD Unavailable [phone] Kirt Lindsay DO Primary Care Provider [phone] Tay Charlton MD Unavailable [phone] Halie Khan MD Unavailable [phone] StarksAnt goldman MD Unavailable [phone] Encounter Details Date Type Department Care Team (Late st Contact Info) Description 10/15/2022 Telephone [facility] Social Work [address] [place] [id number] Anna Vaughn LCSW Social History Tobacco Use [...] Legal Sex Male 10:48 AM DIRECTOR OF STRATEGIC SALES Gender Identity Not on file Sexual Orientation Not on file documented as of this encounter Miscellaneous Notes * Telephone Encounter - Anna Vaughn LCSW - 10/15/2022 10:42 AM CST SW called pt per [place]'s request to discuss ride assistance for appt on 10/22. SW left VM at mobile phone - [phone] as pt was unavailable. SW was unable to leave message on home phone - [phone] VM box was full. SW will follow up. BRIGID Casarez, STEM FRAZER CTOR OF STRATEGIC SALES documented in this encounter Plan of Treatment Not on file documented as of this encounter Visit Diagnoses Not on filedocumented in this encounter Care Teams Latent Print Examiner Relationship Specialty Start Date End Date Kirt Lindsay DO PCP - General Internal Medicine 02/02/21 Josué Del Valle MD PhD Medical Oncologist/Skiving Machine Operator Medical Oncology 08/26/19 Tay Charlton MD Consulting Physician Gastroenterology 12/03/21 06/11/23 Halie Khan MD [address] [place] [address] Consulting Physician Pulmonary Disease 12/12/21 3 Ant Starks MD [address] [place] [address] Consulting Physician Transplant Hepatology 01/12/22 documented as of this encounter
--- OUTSIDE RECORDS SUMMARY | 2024-11-22 12:56 | XMS_ITS | Encounter Summary ---
Author Organization [facility] Healthcare Address [address] [place] [address] Care Team Providers Care Bomb Squad Officer Name Role Phone Josué Del Valle MD PhD Unavailable [phone] Kirt Lindsay DO Primary Care Provider [phone] Tay Charlton MD Unavailable [phone] Halie Khan MD Unavailable [phone] StarksAnt goldman MD Unavailable [phone] Encounter Details Date Type Department Care Team (Latest Contact Info) Description 06/29/2022 8:42 AM CDT - 06/29/2022 11:59 PM CDT Hospital Encounter [facility] ([facility]) [address] [place] [id number] Discharge Disposition: Discharge to home or self [...] on file Legal Sex Male 10:48 AM INPATIENT CODER Gender Identity Not on file Sexual Orientation [...] (acute myeloid leukemia) in remission ([facility]),Type 2 diabetes mellitus with hyperglycemia, with long-term current use of insulin ([facility]),Ynymu-arczqb-kfzf disease ([facility]),H/O allogeneic bone marrow transplant ([facility]),Pure [...] (acute myeloid leukemia) in remission ([facility]),H/O allogeneic bone marrow transplant ([facility]),Vitamin D deficiency TAKE 1 CAPSULE BY MOUTH [...] (acute myeloid leukemia) in remission ([facility]) TAKE 1 CAPSULE(300 MG) BY MOUTH FOUR TIMES DAILY 120 capsule 1 2 08/06/20 22 insulin glargine (LANTUS, BASAGLAR) 100 unit/mL (3 mL) pen for injectionIndications:Typ e 2 diabetes mellitus with hyperosmolarity without coma, with long-term current use of insulin ([facility]) INJECT 15 UNITS NIGHTLY SUB-Q. 1 pen 5 1 02/20/20 24 insulin lispro (HumaLOG, ADMELOG) 100 unit/mL pen for injectionIndications:Typ e 2 diabetes mellitus with hyperosmolarity without coma, with long-term current use of insulin ([facility]) INJECT 5-10 UNITS TID WITH MEALS PLUS SLIDING SCALE. TDD OF 35 UNITS. 10 pen 6 1 02/20/20 24 montelukast (SINGULAIR) 10 mg tabletIndications:AML (acute myeloid leukemia) in remission (HCC),Nkxsx-xpcpyh-cckq disease (HCC) Take 1 tablet (10 mg [...] 2 02/20/20 24 Trelegy Ellipta 100-62.5-25 mcg inhalerIndications:[facility] hospasm Prevention with COPD Inhale 1 [...] on filedocumented in this encounter Care Teams Bomb Squad Officer Relationship Specialty Start Date End Date Kirt Lindsay DO PCP - General Internal Medicine 02/02/21 Josué Del Valle MD PhD Medical Oncologist/Heel Sprayer First Medical Oncology 08/26/19 Tay Charlton MD Consulting Physician Gastroenterology 12/03/21 06/11/23 Halie Khan MD [address] [place] [address] Consulting Physician Pulmonary Disease 12/12/21 3 Ant Starks MD [address] [place] [address] Consulting Physician Transplant Hepatology 01/12/22 documented as of this encounter
--- OUTSIDE RECORDS SUMMARY | 2024-11-22 12:56 | XMS_ITS | Encounter Summary ---
Author Organization [facility] Address [address] [place] [address] Phone Care Team Providers Care Sas Etl Developer Name Role Phone Josué Del Valle MD PhD Unavailable [phone] Kirt Lindsay DO Primary Care Provider [phone] Tay Charlton MD Unavailable [phone] Haile Khan MD Unavailable [phone] Ant Starks MD Unavailable [phone] Reason for Visit * Oncology (Routine) - Closed Specialty Diagnoses / Procedures Referred By Contac t Referred To Contact Lab Diagnoses Type 2 diabetes mellitus with hyperosmolarity without coma, with long-term current use of insulin (HCC) Osteopenia, unspecified location Procedures ONCBCN ARM DRAW APPT [facility] Scheduling [address] [place] [address] Phone: tel: [facility] Oncology [address] [facility] Advanced Medicine 7th [place] [address] [place] [address] Phone: tel: Referral ID Status Reason Start Date Expiration Date V isits Requested Visits Authorized [id number] Closed Specialty Services Required 11/23/2021 11/17/2023 99 99 Encounter Details Date Type Department Care Team (Late st Contact Info) Description 10/22/2022 9:00 AM STEP DOWN NURSE Lab [facility] Oncology [address] [facility] 7th [place] [address] [place] [address] 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) [...] on file Legal Sex Male 10:48 AM STEP DOWN NURSE Gender Identity Not on file Sexual Orientation Not on file documented as of this encounter Plan of Treatment Not on file documented as of this encounter Visit Diagnoses Diagnosis AML (acute myeloid leukemia) in remission (HCC) documented in this encounter Orders Appointment Requests Count Last Ordered Date Fi rst Ordered Date ONCBCN LAB APPOINTMENT 1 10/22/2022 documented in this encounter Care Teams Sas Etl Developer Relationship Specialty Start Date End Date Kirt Lindsay DO PCP - General Internal Medicine 02/02/21 Josué Del Valle MD PhD Medical Oncologist/Delivery Driver Medical Oncology 08/26/19 Tay Charlton MD Consulting Physician Gastroenterology 12/03/21 06/11/23 Halie Khan MD [address] [address] Consulting Physician Pulmonary Disease 12/12/21 3 Ant Starks MD [address] [facility] [address] [place] [address] Consulting Physician Transplant Hepatology 01/12/22 documented as of this encounter
--- OUTSIDE RECORDS SUMMARY | 2024-11-22 12:56 | XMS_ITS | Encounter Summary ---
Author Organization [facility] Address [address] [place] [address] Phone Care Team Providers Care Enrichment Assistant Name Role Phone Josué Del Valle MD PhD Unavailable [phone] Kirt Lindsay DO Primary Care Provider [phone] Tay Charlton MD Unavailable [phone] Halie Khan MD Unavailable [phone] StarksAnt goldman MD Unavailable [phone] Encounter Details Date Type Department Care Team (Late st Contact Info) Description 10/16/2022 Telephone [facility] Bone Marrow Transplant [facility] Advanced Medicine 7th Floor, [place] [address] Josué Del Valle MD PhD [address] DIV BONE MARROW TRANSPLANT, [address] [place] [address] Social History Tobacco Use Types [...] Legal Sex Male 10:48 AM DIRECTOR OF NURSING Gender Identity Not on file Sexual Orientation Not on file documented as of this encounter Miscellaneous Notes * Telephone Encounter - Anaid Polanco RN - 10/16/2022 10:45 AM DIRECTOR OF NURSING LVM for patient stating if he or his team wish to be transferred to [facility] then can provide a phone number for [place] to initiate a transfer. CTOR OF NURSING * Telephone Encounter - Marisa Mcdermott - 10/16/2022 10:31 AM CST Patient being admitted to [facility] for exacerbation of his COPD. CTOR OF NURSING documented in this encounter Plan of Treatment Not on file documented as of this encounter Visit Diagnoses Not on filedocumented in this encounter Care Teams Enrichment Assistant Relationship Specialty Start Date End Date Kirt Lindsay DO PCP - General Internal Medicine 02/02/21 Josué Del Valle MD PhD Medical Oncologist/Neurosurgery Physician Medical Oncology 08/26/19 Tay Charlton MD Consulting Physician Gastroenterology 12/03/21 06/11/23 Halie Khan MD [address] [place] [address] Consulting Physician Pulmonary Disease 12/12/21 3 Ant Starks MD [address] [facility] [address] [place] [address] Consulting Physician Transplant Hepatology 01/12/22 documented as of this encounter
--- OUTSIDE RECORDS SUMMARY | 2024-11-22 12:56 | XMS_ITS | Encounter Summary ---
Author Organization [facility] Address [address] [place] [address] Phone Care Team Providers Care Porcelain Enamel Repairer Name Role Phone Josué Del Valle MD PhD Unavailable [phone] Kirt Lindsay DO Primary Care Provider [phone] Tay Charlton MD Unavailable [phone] Halie Khan MD Unavailable [phone] StarksAnt goldman MD Unavailable [phone] Encounter Details Date Type Department Care Team (Late st Contact Info) Description 10/18/2022 Telephone [facility] Bone Marrow Transplant [facility] Advanced [facility] 7th Floor, [place] [address] Melody Bolanos V. Social History [...] on file Legal Sex Male 10:48 AM ELECTRONICS WARFARE TECHNICIAN Gender Identity Not on file Sexual [...] Anaid Polanco RN - 10/19/2022 2:46 PM ELECTRONICS WARFARE TECHNICIAN LVM for patient on taper regimen... Take 40mg (4 tablets) daily for 5 days. THEN take 30mg (3 tablets) daily for 5 days. THEN Take 20mg(2 tablets) daily for 5 days. THEN take 10mg (1 tablet) for 5 days. THEN stop. Sent to his pharmacy. TRONICS WARFARE TECHNICIAN * Telephone Encounter - Anaid Polanco RN - 10/18/2022 3:46 PM ELECTRONICS WARFARE TECHNICIAN Per patient, he was given 50mg prednisone X5 days from OSH. He is asking for a prednisone taper. Will defer to Jame DÍAZ or Dr. Del Valle for taper recommendations. Told patient will call him back with an answer. TRONICS WARFARE TECHNICIAN documented in this encounter Plan of Treatment Not on file documented as of this encounter Visit Diagnoses Diagnosis Chronic obstructive pulmonary disease, unspecified COPD type (HCC)- Primary documented in this encounter Care Teams Porcelain Enamel Repairer Relationship Specialty Start Date End Date Kirt Lindsay DO PCP - General Internal Medicine 02/02/21 Josué Del Valle MD PhD Medical Oncologist/Stage Director Medical Oncology 08/26/19 Tay Charlton MD Consulting Physician Gastroenterology 12/03/21 06/11/23 Halie Khan MD [address] [address] Consulting Physician Pulmonary Disease 12/12/21 3 Ant Starks MD [address] [facility] [address] [place], [place] [address] Consulting Physician Transplant Hepatology 01/12/22 documented as of this encounter
--- OUTSIDE RECORDS SUMMARY | 2024-11-22 12:56 | XMS_ITS | Encounter Summary ---
Author Organization [facility] Address [address] [place] [address] Phone Care Team Providers Care Self Defense Instructor Name Role Phone Josué Del Valle MD PhD Unavailable Kirt Lindsay DO Primary Care Provider [phone] Tay Charlton MD Unavailable [phone] Halie Khan MD Unavailable [phone] StarksAnt goldman MD Unavailable [phone] Encounter Details Date Type Department Care Team (Late st Contact Info) Description 12/31/2022 Telephone [facility] Bone Marrow Transplant [address] [facility] Advanced Medicine 7th Floor, [place] [address] Narcisa Kilgore NP [address] DIV IM BONE MARROW TRANSPLANT, [address] [place] [address] Social History Tobacco Use Types [...] file Legal Sex Male 10:48 AM PANEL MAKER Gender Identity Not on file Sexual Orientation Not on file documented as of this encounter Miscellaneous Notes * Telephone Encounter - Narcisa Kilgore NP - 12/31/2022 10:17 AM PANEL MAKER Left message for patient to call us back. L MAKER documented in this encounter Plan of Treatment Not on file documented as of this encounter Visit Diagnoses Not on filedocumented in this encounter Care Teams Self Defense Instructor Relationship Specialty Start Date End Date Kirt Lindsay DO PCP - General Internal Medicine 02/02/21 Josué Del Valle MD PhD Medical Oncologist/Satellite Tv Installer Medical Oncology 08/26/19 Tay Charlton MD Consulting Physician Gastroenterology 12/03/21 06/11/23 Halie Khan MD [address] [address] Consulting Physician Pulmonary Disease 12/12/21 3 Ant Starks MD [address] [address] Consulting Physician Transplant Hepatology 01/12/22 documented as of this encounter
--- OUTSIDE RECORDS SUMMARY | 2024-11-22 12:56 | XMS_ITS | Encounter Summary ---
Author Organization [facility] Healthcare Address [address] [place] [address] Care Team Providers Care Public Health Training Assistant Name Role Phone Josué Del Valle MD PhD Unavailable [phone] Kirt Lindsay DO Primary Care Provider [phone] Tay Charlton MD Unavailable [phone] Halie Khan MD Unavailable [phone] StarksAnt goldman MD Unavailable [phone] Encounter Details Date Type Department Care Team (Late st Contact Info) Description 10/18/2022 Documentation [facility] Social Work 1 [place] [address] Anna Vaughn LCSW Social History Tobacco Use [...] on file 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 [employer] - has accepted round trip, tracking #[id number]. Medicaid ID: [id number] [place] Foreman Time: 8:00am Appt time: 9:00am Pick-Up Address: [address] [facility] [address] Drop Off Address: [address] [place] [address] [address] provided [employer] with both pt's phone numbers - [phone] and [phone] per pt's request. SW shared this information via email per pt's request and encouraged him to reach out with any questions or concerns. BRIGID Casarez, FACILITY ASSISTANT IC TANK SERVICE TECHNICIAN documented in this encounter Plan of Treatment Not on file documented as of this encounter Visit Diagnoses Not on filedocumented in this encounter Care Teams Public Health Training Assistant Relationship Specialty Start Date End Date Kirt Lindsay DO PCP - General Internal Medicine 02/02/21 Josué Del Valle MD PhD Medical Oncologist/Backhaul Driver Medical Oncology 08/26/19 Tay Charlton MD Consulting Physician Gastroenterology 12/03/21 06/11/23 Halie Khan MD [address] [address] Consulting Physician Pulmonary Disease 12/12/21 3 Ant Starks MD [address] [facility] [address] [place] [address] Consulting Physician Transplant Hepatology 01/12/22 documented as of this encounter
--- OUTSIDE RECORDS SUMMARY | 2024-11-22 12:56 | XMS_ITS | Encounter Summary ---
Author Organization [facility] Address [address] [place] [address] Phone Care Team Providers Care Galley Stripper Name Role Phone Josué Del Valle MD PhD Unavailable [phone] Kirt Lindsay DO Primary Care Provider [phone] Tay Charlton MD Unavailable [phone] Halie Khan MD Unavailable [phone] Ant Starks MD Unavailable [phone] Cal Craranza DO Unavailable [phone] Halie Khan MD Unavailable [phone] Wilfred Kinsey MD Unavailable Encounter Details Date Type Department Care Team (Late st Contact Info) Description 12/31/[address] 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 Gender Identity Not on file Sexual Orientation [...] documented as of this encounter Care Teams Galley Stripper Relationship Specialty Start Date End Date Kirt Lindsay DO PCP - General Internal Medicine 02/02/21 Josué Del Valle MD PhD Medical Oncologist/Commercial Crabber Medical Oncology 08/26/19 Tay Charlton MD Consulting Physician Gastroenterology 12/03/21 06/11/23 Halie Khan MD [address] [address] Consulting Physician Pulmonary Disease 12/12/21 3 Ant Starks MD [address] [address] Consulting Physician Transplant Hepatology 01/12/22 Cal Carranza DO [address] [address] News Writer Internal Medicine 06/12/23 Halie Khan MD [address] [address] Sales And Leasing Consultant Critical Care Med 06/12/23 Wilfred Kinsey MD [address] [facility] [address] [place] [address] Consulting Physician Gastroenterology 03/02/24 documented as of this encounter
--- OUTSIDE RECORDS SUMMARY | 2024-11-22 12:56 | XMS_ITS | Encounter Summary ---
Author Organization [facility] Address [address] [place] [address] Phone Care Team Providers Care Program Review Director Name Role Phone Josué Del Valle MD PhD Unavailable Kirt Lindsay DO Primary Care Provider [phone] Tay Charlton MD Unavailable [phone] Halie Khan MD Unavailable [phone] [place] MD Unavailable [phone] Reason for Visit * Reason Onset Date Comments Reschedule 12/25/2022 Encounter Details Date Type Department Care Team (Late st Contact Info) Description 12/25/2022 Telephone [facility] Bone Marrow Transplant [address] [facility] Advanced [facility] 7th Floor, [place] [address] Jenna Vasquez RMA Reschedule Social [...] file Legal 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 Jessica Bautista at 10. [facility] 11:15. CAL DESIGN ENGINEER * Telephone Encounter - Jenna Vasquez RMA - 12/25/2022 1:01 PM OPTICAL DESIGN ENGINEER Pt is requesting a call back to [facility] his 02/22 appt w/[facility] to 02/18 w/. He has another appt scheduled on 02/18 and wanted to coordinate them on the same day. He asked to please shaina him back CAL DESIGN ENGINEER documented in this encounter Plan of Treatment Not on file documented as of this encounter Visit Diagnoses Not on filedocumented in this encounter Care Teams Program Review Director Relationship Specialty Start Date End Date Kirt Lindsay DO PCP - General Internal Medicine 02/02/21 Josué Del Valle MD PhD Medical Oncologist/Correctional Corporal Medical Oncology 08/26/19 Tay Charlton MD Consulting Physician Gastroenterology 12/03/21 06/11/23 Halie Khan MD [address] [address] Consulting Physician Pulmonary Disease 12/12/21 3 Ant Starks MD [address] [facility] [address] [facility] [address] [place] [address] Consulting Physician Transplant Hepatology 01/12/22 documented as of this encounter
--- OUTSIDE RECORDS SUMMARY | 2024-11-22 12:56 | XMS_ITS | Encounter Summary ---
Author Organization [facility] Address [address] [place] [address] Phone Care Team Providers Care Concrete Stone Fabricator Name Role Phone Josué Del Valle MD PhD Unavailable [phone] Kirt Lindsay DO Primary Care Provider [phone] Tay Charlton MD Unavailable [phone] Halie Khan MD Unavailable [phone] StarksAnt goldman MD Unavailable [phone] Encounter Details Date Type Department Care Team (Late st Contact Info) Description 06/29/2022 Telephone [facility] Bone Marrow Transplant [facility] Advanced Medicine 7th Floor, [place] [address] Anaid Polanco RN Social History [...] file 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 Gender Identity Not on file Sexual Orientation [...] on filedocumented in this encounter Care Teams Concrete Stone Fabricator Relationship Specialty Start Date End Date Kirt Lindsay DO PCP - General Internal Medicine 02/02/21 Josué Del Valle MD PhD Medical Oncologist/Instrument Mechanic Medical Oncology 08/26/19 Tay Charlton MD Consulting Physician Gastroenterology 12/03/21 06/11/23 Halie Khan MD [address] [address] Consulting Physician Pulmonary Disease 12/12/21 3 Ant Starks MD [address] [address] Consulting Physician Transplant Hepatology 01/12/22 documented as of this encounter
--- OUTSIDE RECORDS SUMMARY | 2024-11-22 12:56 | XMS_ITS | Encounter Summary ---
Author Organization [facility] Address [address] [place] [address] Phone Care Team Providers Care Utility Pipe Layer Name Role Phone Josué Del Valle MD PhD Unavailable [phone] Kirt Lindsay DO Primary Care Provider [phone] Tay Charlton MD Unavailable [phone] Halie Khan MD Unavailable [phone] StarksAnt goldman MD Unavailable [phone] Encounter Details Date Type Department Care Team (Late st Contact Info) Description 10/17/2022 Telephone [facility] Trans[facility] 7th Floor, [place] [address] Melody Bolanos V. 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 he received IV steroids inpatient. COVID, Flu, RSV negative. Discharged today, he went home on PO steroids and albuterol and unknown antibiotics. States he feels better. Is having to monitor BG more closely with prednisone. Reports getting new teeth . Reached out to social work for ride assistance on Monday 10/22. CKER documented in this encounter Plan of Treatment Not on file documented as of this encounter Visit Diagnoses Not on filedocumented in this encounter Care Teams Utility Pipe Layer Relationship Specialty Start Date End Date Kirt Lindsay DO PCP - General Internal Medicine 02/02/21 Josué Del Valle MD PhD Medical Oncologist/Student Success Coach Medical Oncology 08/26/19 Tay Charlton MD Consulting Physician Gastroenterology 12/03/21 06/11/23 Halie Khan MD [address] [place], [place] [id number] Consulting Physician Pulmonary Disease 12/12/21 3 Ant Starks MD [address] [place] [address] Consulting Physician Transplant Hepatology 01/12/22 documented as of this encounter
--- OUTSIDE RECORDS SUMMARY | 2024-11-22 12:56 | XMS_ITS | Encounter Summary ---
Author Organization [facility] Address [address] [place] [address] Care Team Providers Care Escalator Operator Name Role Phone Josué Del Valle MD PhD Unavailable [phone] Kirt Lindsay DO Primary Care Provider [phone] Tay Charlton MD Unavailable [phone] Halie Khan MD Unavailable [phone] StarksAnt goldman MD Unavailable [phone] Encounter Details Date Type Department Care Team (Latest Contact Info) Description 10/22/2022 11:12 AM LEMON PICKER - 10/22/2022 11:59 PM [email or web address] Hospital Encounter [facility] [address] [place] [address] 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) [...] on file Legal Sex Male 10:48 AM LEMON PICKER Gender Identity Not on file Sexual [...] mg tabletIndications:AML (acute myeloid leukemia) in remission ([facility]) TAKE 1 TABLET(400 MG) BY MOUTH EVERY 8 HOURS 270 tablet 1 2 02/20/20 24 albuterol HFA (PROVENTIL HFA,VENTOLIN HFA,PROAIR HFA) 90 mcg/actuation inhalerIndications:Chron ic obstructive pulmonary disease, unspecified COPD type ([facility]) Inhale 2 puffs every 6 (six) hours as needed for wheezing 1 each 3 2 06/07/20 23 atorvastatin (LIPITOR) 40 mg tabletIndications:AML (acute myeloid leukemia) in remission ([facility]),Type 2 diabetes mellitus with hyperglycemia, with long-term current use of insulin ([facility]),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[facility]),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[facility]),Pure hypercholesterolemia Take 1 tablet (40 mg total) by mouth daily 30 tablet 6 0 07/30/20 24 blood-glucose meter miscIndications:Type 2 diabetes mellitus with hyperosmolarity without coma, with long-term current use of insulin ([facility]) 1 Device 3 (three) times [...] unit capsuleIndications:AML (acute myeloid leukemia) in remission ([facility]),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 30 tablet 0 02/20/20 24 gabapentin (NEURONTIN) 300 mg capsuleIndications:AML (acute myeloid leukemia) in remission ([facility]) TAKE 1 CAPSULE(300 MG) BY MOUTH FOUR TIMES DAILY 120 capsule 1 2 11/30/19 23 insulin glargine (LANTUS, BASAGLAR) 100 unit/mL (3 mL) pen for injectionIndications:Typ e 2 diabetes mellitus with hyperosmolarity without coma, with long-term current use of insulin ([facility]) INJECT 15 UNITS NIGHTLY SUB-Q. 1 pen 5 1 02/20/20 24 insulin lispro (HumaLOG, ADMELOG) 100 unit/mL pen for injectionIndications:Typ e 2 diabetes mellitus with hyperosmolarity without coma, with long-term current use of insulin ([facility]) INJECT 5-10 UNITS TID WITH MEALS PLUS SLIDING SCALE. TDD OF 35 UNITS. 10 pen 6 1 02/20/20 24 montelukast (SINGULAIR) 10 mg tabletIndications:AML (acute myeloid leukemia) in remission (HCC),Lynnw-hstmtx-dtkt disease (HCC) Take 1 tablet (10 mg [...] Diagnosis Comments EGFR Routine 10/22/2022 8:45 AM LEMON PICKER 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) DIFFERENTIAL AUTO Routine 10/22/2022 8:4 5 AM LEMON PICKER 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) CBC WITH AUTO DIFFERENTIAL Routine 10/22/2022 8:45 AM LEMON PICKER 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) LACTATE DEHYDROGENASE Routine 10/22/2022 8:45 AM LEMON PICKER 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) COMPREHENSIVE METABOLIC PANEL Routine 10/22/2022 8:45 AM LEMON PICKER 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) CYTOMEGALOVIRUS (CMV) DNA, QUANT GEN LAB Routine 10/22/2022 8:45 AM LEMON PICKER 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) documented in this encounter Results * eGFR (10/22/2022 8:45 AM LEMON PICKER) [facility] eGFR >90 90 - 130 mL/min/1. [...] was last reviewed 2021. Testing performed by: [facility], [address] [place] [phone] Blood 10/22/2022 8:45 AM LEMON PICKER 10/22/2022 8:51 AM LEMON PICKER us Josué Del Valle MD PhD LAB BLOOD ORDERABLES Fin al Result [facility] Department [place] [address] * (ABNORMAL) Differential, auto (10/22/2022 8:45 AM LEMON PICKER) Neutrophil abs 7.7(H) 1.8 - 6.6 K/cumm [facility] Comment:Testing performed by : [facility], [address] [place] [phone] Lymphocyte abs 4.7(H) 1.2 - 3.3 K/cumm [facility] Comment:Testing performed by : [facility], [address] [place] [phone] Monocyte abs 0.9 0.2 - 1.2 K/cumm [facility] Comment:Testing performed by : [facility], [address] [place] [phone] Eosinophil abs 0.0 0.0 - 0.5 K/cumm [facility] Comment:Testing performed by : [facility], [address] [place] [phone] Basophil abs 0.1 0.0 - 0.2 K/cumm [facility] Comment:Testing performed by : [address] [phone] Neutrophil pct 57.6 % [facility] Comment: Interpretive Data Percent cell count reference ranges are not reported, since discordance with absolute values may lead to misinterpretation of CBC data. Current Interpretive Data was last revised on 2018. Testing performed by: [facility], [address] [place] [phone] Lymphocyte pct 34.9 % [facility] Comment: Interpretive Data Percent cell count reference ranges are not reported, since discordance with absolute values may lead to misinterpretation of CBC data. Current Interpretive Data was last revised on 2018. Testing performed by: [facility], [address] [place] [phone] Monocyte pct 6.8 % [facility] Comment:Testing performed by : [facility], [address] [place] [phone] Eosinophil pct 0.0 % [facility] Comment:Testing performed by : [facility], [address] [place] [phone] Basophil pct 0.7 % [facility] Comment:Testing performed by : [facility], [address] [place] [phone] Blood 10/22/2022 8:45 AM LEMON PICKER 10/22/2022 8:51 AM LEMON PICKER Josué Del Valle MD PhD LAB BLOOD ORDERABLES Fin al Result [facility] Department [place] [address] * (ABNORMAL) CBC with auto differential (10/22/2022 8:45 AM LEMON PICKER) WBC 13.4(H) 3.8 - 9.8 K/cumm [facility] Comment:Testing performed by : [facility], [address] [place] [phone] Hgb 13.9 13.8 - 17.2 g/dL [facility] Comment:Testing performed by : [address] [address] Hct 41.4 40.7 - 50.3 % [facility] Comment:Testing performed by : [facility], [address] [place], [place] [phone] Plt 362 140 - 440 K/cumm [facility] Comment:Testing performed by : [facility], [address] [place] [phone] MPV 8.3 6.8 - 10.4 fL [facility] Comment:Testing performed by : [facility], [address] [place], [place] [phone] RBC 3.94(L) 4.50 - 5.70 M/cumm [facility] Comment:Testing performed by : [facility], [address] [place], [place] [phone] MCV 105.1(H) 80.0 - 97.6 fL [facility] Comment:Testing performed by : [facility], [address] [place], [place] [phone] MCH 35.3(H) 26.7 - 33.7 pg [facility] Comment:Testing performed by : [facility], [address] [place] [phone] MCHC 33.6 32.7 - 35.5 g/dL [facility] Comment:Testing performed by : [address] [phone] RDW CV 14.2 11.8 - 14.6 % [facility] Comment:Testing performed by : [address] [address] NRBC abs 0.12(H) 0.00 - 0.01 K/cumm [facility] Comment:Testing performed by : [facility], [address] [place] [phone] Blood 10/22/2022 8:45 AM LEMON PICKER 10/22/2022 8:51 AM LEMON PICKER us Josué Del Valle MD PhD LAB BLOOD ORDERABLES Fin al Result [facility] Department [place] [address] * (ABNORMAL) Comprehensive metabolic panel (10/22/2022 8:45 AM LEMON PICKER) Sodium 140 135 - 145 mmol/L [facility] Comment:Testing performed by : [facility], [address] [place] [phone] Potassium, pl 4.7 3.3 - 4.9 mmol/L [facility] Comment:Testing performed by : [facility], [address] [place] [phone] Chloride 98 97 - 110 mmol/L [facility] Comment:Testing performed by : [facility], [address] [place] [phone] CO2 36(H) 22 - 32 mmol/L [facility] Comment:Testing performed by : [facility], [address] [place] [address] Anion gap 6 2 - 15 mmol/L [facility] Comment:Testing performed by : [address] [address] BUN 19 8 - 25 mg/dL [facility] Comment:Testing performed by : [facility], [address] [place] [phone] Creatinine 0.77(L) 0.80 - 1.30 mg/dL [facility] Comment:Testing performed by : [address] [phone] Glucose 258(H) 70 - 199 mg/dL [facility] Comment: Interpretive Data Fasting glucose >/= [...] was last revised 2017. Testing performed by: [address] [phone] Calcium 9.3 8.5 - 10.3 mg/dL [facility] Comment:Testing performed by : [facility], [address] [place] [phone] Bilirubin, total 0.3 0.1 - 1.2 mg/dL [facility] Comment:Testing performed by : [facility], [address] [place] [phone] Protein, pl 7.7 6.5 - 8.5 g/dL [facility] Comment:Testing performed by : [facility], [address] [place] [phone] Albumin 3.8 3.5 - 5.0 g/dL [facility] Comment:Testing performed by : [facility], [address] [place] [phone] Alk phos 170(H) 40 - 130 Units/L [facility] Comment:Testing performed by : [facility], [address] [place] [phone] ALT 62(H) 7 - 55 Units/L [facility] Comment:Testing performed by : [facility], [address] [place] [phone] AST 42 10 - 50 Units/L [facility] Comment:Testing performed by : [facility], [address] [place] [phone] Blood 10/22/2022 8:45 AM LEMON PICKER 10/22/2022 8:51 AM LEMON PICKER Josué Del Valle MD PhD LAB BLOOD ORDERABLES Fin al Result [facility] Department [place] [address] * (ABNORMAL) Lactate dehydrogenase (LD) (10/22/2022 8:45 AM LEMON PICKER) Lactate dehydrogenase (LDH) 259(H) 100 - 250 Units/L [facility] Comment:Testing performed by : [facility], [address] [place] [phone] Blood 10/22/2022 8:45 AM LEMON PICKER 10/22/2022 8:51 AM LEMON PICKER us Josué Del Valle MD PhD LAB BLOOD ORDERABLES Fin al Result Performing Organization Address City/[facility] Co de Phone Number [facility] Department [place] [address] * Cytomegalovirus (CMV) DNA PCR, quantitative Blood (10/22/2022 8:45 AM LEMON PICKER) CMV DNA Not Detected [facility] Comment: Interpretive Data: The quantifiable range of this assay is 34 IUnits/mL to 10,000,000 IUnits/mL (1.53 log IUnits/mL to 7.0 log IUnits/mL). Testing was performed by the [facility] [address] CMV Test ([employer] Testing performed at [facility]. Current interpretive data was last revised on 2021. Blood 10/22/2022 8:45 AM LEMON PICKER 10/22/2022 9:24 AM LEMON PICKER us Josué Del Valle MD PhD LAB MICROBIOLOGY - GENER AL ORDERABLES Final Result Performing Organization Address [facility] Co de Phone Number [facility] Department [place] [address] documented in this encounter Visit Diagnoses Diagnosis AML (acute myeloid leukemia) in remission (HCC) documented in this encounter Care Teams Escalator Operator Relationship Specialty Start Date End Date Kirt Lindsay DO PCP - General Internal Medicine 02/02/21 Josué Del Valle MD PhD Medical Oncologist/Marine Consultant Medical Oncology 08/26/19 Tay Charlton MD Consulting Physician Gastroenterology 12/03/21 06/11/23 Halie Khan MD [address] [facility] [address] [place] [address] Consulting Physician Pulmonary Disease 12/12/21 3 Ant Starks MD [address] [facility] [address] [place] [address] Consulting Physician Transplant Hepatology 01/12/22 documented as of this encounter
--- OUTSIDE RECORDS SUMMARY | 2024-11-22 12:56 | XMS_ITS | Encounter Summary ---
Author Organization [facility] Address [address] [place] [address] Phone Care Team Providers Care Senior Planning Analyst Name Role Phone Josué Del Valle MD PhD Unavailable [phone] Kirt Lindsay DO Primary Care Provider [phone] Tay Charlton MD Unavailable [phone] Halie Khan MD Unavailable [phone] StarksAnt goldman MD Unavailable [phone] Encounter Details Date Type Department Care Team (Late st Contact Info) Description 10/05/[address] 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 Gender Identity Not on file Sexual Orientation Not on file documented as of this encounter Plan of Treatment Not on file documented as of this encounter Results * (ABNORMAL) Lactate dehydrogenase (LD) (10/22/2022 8:45 AM ELECTRIC METER REPAIRER HELPER) Lactate dehydrogenase (LDH) 259(H) 100 - 250 Units/L [facility] Comment:Testing performed by : [facility], [address] [place] [phone] Blood 10/22/2022 8:45 AM ELECTRIC METER REPAIRER HELPER 10/22/2022 8:51 AM ELECTRIC METER REPAIRER HELPER Josué Del Valle MD PhD LAB BLOOD ORDERABLES Fin al Result [facility] Department [place] [address] * (ABNORMAL) Comprehensive metabolic panel (10/22/2022 8:45 AM ELECTRIC METER REPAIRER HELPER) Pathologist [facility] Sodium 140 135 - 145 mmol/L [facility] Comment:Testing performed by : [facility], [address] [place] [phone] Potassium, pl 4.7 3.3 - 4.9 mmol/L [facility] Comment:Testing performed by : [facility], [address] [place] [phone] Chloride 98 97 - 110 mmol/L [facility] Comment:Testing performed by : [facility], [address] [place] [phone] CO2 36(H) 22 - 32 mmol/L [facility] Comment:Testing performed by : [facility], [address] [place] [phone] Anion gap 6 2 - 15 mmol/L [facility] Comment:Testing performed by : [facility], [address] [place] [phone] BUN 19 8 - 25 mg/dL [facility] Comment:Testing performed by : [facility], [address] [place] [phone] Creatinine 0.77(L) 0.80 - 1.30 mg/dL [facility] Comment:Testing performed by : [facility], [address] [place] [phone] Glucose 258(H) 70 - 199 mg/dL [facility] [...] was last revised 2017. Testing performed by: [facility], [address] [place] [phone] Calcium 9.3 8.5 - 10.3 mg/dL [facility] Comment:Testing performed by : [address] [address] Bilirubin, total 0.3 0.1 - 1.2 mg/dL [facility] Comment:Testing performed by : [address] [phone] Protein, pl 7.7 6.5 - 8.5 g/dL [facility] Comment:Testing performed by : [facility], [address] [place] [phone] Albumin 3.8 3.5 - 5.0 g/dL [facility] Comment:Testing performed by : [address] [phone] Alk phos 170(H) 40 - 130 Units/L [facility] Comment:Testing performed by : [address] [phone] ALT 62(H) 7 - 55 Units/L [facility] Comment:Testing performed by : [facility], [address] [place] [phone] AST 42 10 - 50 Units/L [facility] Comment:Testing performed by : [facility], [address] [place] [phone] Blood 10/22/2022 8:45 AM ELECTRIC METER REPAIRER HELPER 10/22/2022 8:51 AM ELECTRIC METER REPAIRER HELPER us Josué Del Valle MD PhD LAB BLOOD ORDERABLES Fin al Result [facility] Department [place] [address] * (ABNORMAL) CBC with auto differential (10/22/2022 8:45 AM ELECTRIC METER REPAIRER HELPER) WBC 13.4(H) 3.8 - 9.8 K/cumm [facility] Comment:Testing performed by : [facility], [address] [place] [phone] Hgb 13.9 13.8 - 17.2 g/dL [facility] Comment:Testing performed by : [facility], [address] [place] [phone] Hct 41.4 40.7 - 50.3 % [facility] Comment:Testing performed by : [facility], [address] [place] [phone] Plt 362 140 - 440 K/cumm [facility] Comment:Testing performed by : [facility], [address] [place] [phone] MPV 8.3 6.8 - 10.4 fL [facility] Comment:Testing performed by : [facility], [address] [place] [phone] RBC 3.94(L) 4.50 - 5.70 M/cumm [facility] Comment:Testing performed by : [address] [phone] MCV 105.1(H) 80.0 - 97.6 fL [facility] Comment:Testing performed by : [facility], [address] [place] [phone] MCH 35.3(H) 26.7 - 33.7 pg [facility] Comment:Testing performed by : [facility], [address] [place] [phone] MCHC 33.6 32.7 - 35.5 g/dL [facility] Comment:Testing performed by : [facility], [address] [place] [phone] RDW CV 14.2 11.8 - 14.6 % [facility] Comment:Testing performed by : [facility], [address] [place] [phone] NRBC abs 0.12(H) 0.00 - 0.01 K/cumm [facility] Comment:Testing performed by : [facility], [address] [place] [phone] Blood 10/22/2022 8:45 AM ELECTRIC METER REPAIRER HELPER 10/22/2022 8:51 AM ELECTRIC METER REPAIRER HELPER Josué Del Valle MD PhD LAB BLOOD ORDERABLES Fin al Result Performing Organization Address [facility] de Phone Number [facility] [place] [address] * Cytomegalovirus (CMV) DNA PCR, quantitative Blood (10/22/2022 8:45 AM ELECTRIC METER REPAIRER HELPER) CMV DNA Not Detected [facility] Comment: Interpretive Data: The quantifiable range of this assay is 34 IUnits/mL to 10,000,000 IUnits/mL (1.53 log IUnits/mL to 7.0 log IUnits/mL). Testing was performed by the [employer]00 CMV Test ([employer] Testing performed at [facility]. Current interpretive data was last revised on 2021. 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)- Primary documented in this encounter Orders Appointment Requests Count Last Ordered Date Fi rst Ordered Date [facility]N CLINIC APPOINTMENT REQUEST 1 022 ON[facility] LAB APPOINTMENT 1 10/22/2022 documented in this encounter Care Teams Senior Planning Analyst Relationship Specialty Start Date End Date Kirt Lindsay DO PCP - General Internal Medicine 02/02/21 Josué Del Valle MD PhD Medical Oncologist/Sort Worker Medical Oncology 08/26/19 Tay Charlton MD Consulting Physician Gastroenterology 12/03/21 06/11/23 Halie Khan MD [address] [facility] [address] [place] [address] Consulting Physician Pulmonary Disease 12/12/21 3 Ant Starks MD [address] [place] [address] Consulting Physician Transplant Hepatology 01/12/22 documented as of this encounter
--- OUTSIDE RECORDS SUMMARY | 2024-11-22 12:57 | XMS_ITS | Encounter Summary ---
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) Procedures CT chest with contrast Josué Del Valle MD PhD Phone: tel: fax: [address] [address] Referral ID Status Reason Start Date Expiration Date Visits Re quested Visits Authorized [id number] Closed 02/28/2022 03/30/2023 1 1 Reason for Visit * MRI/CAT/PET Scan (Routine) - Closed Specialty Diagnoses / Procedures Referred By [facility] t Referred To Contact Radiology Diagnoses 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 Gender Identity Not on file [...] in remission ([facility]) TAKE 1 TABLET(400 MG) BY MOUTH EVERY 8 HOURS 270 tablet 1 2 06/11/20 22 albuterol HFA (PROVENTIL HFA,VENTOLIN HFA,PROAIR HFA) 90 mcg/actuation inhalerIndications:Chron ic Obstructive Pulmonary Disease Inhale 2 puffs every 4 (four) hours as needed for wheezing 3 each 3 2 10/22/20 22 atorvastatin (LIPITOR) 40 mg tabletIndications:AML (acute myeloid leukemia) in remission ([facility]),Type 2 diabetes mellitus with hyperglycemia, with long-term current use of insulin ([facility]),Oldbl-rfuych-rpzd disease ([facility]),H/O allogeneic bone marrow transplant ([facility]),Pure hypercholesterolemia Take 1 tablet (40 mg total) by mouth daily 30 tablet 6 0 07/30/20 24 blood-glucose meter miscIndications:Type 2 diabetes mellitus with hyperosmolarity without coma, with long-term current use of insulin ([facility]) 1 Device 3 (three) times a [...] in remission ([facility]),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[facility]),Vitamin D deficiency TAKE 1 CAPSULE BY MOUTH ONCE A WEEK DIRECTED 12 capsule 3 1 02/20/20 24 furosemide (LASIX) 20 mg tabletIndications:Type 2 diabetes mellitus with hyperosmolarity without coma, with long-term current use of insulin ([facility]) Take 1 tablet (20 mg total) [...] mg tabletIndications: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),Rtxaf-btkmhm-kkel disease (HCC) TAKE 1 TABLET BY MOUTH EVERY DAY 90 tablet 2 06/26/20 22 mycophenolate mofetil (CELLCEPT) 500 mg tabletIndications:AML (acute myeloid leukemia) in remission (HCC),Hoiiv-wlrypk-axuu disease (HCC) TAKE 2 TABLETS(1000 MG) BY [...] Creatinine POC 1.0 0.7 - 1.3 mg/dL [facility] Blood 04/03/2022 9:27 AM CDT 04/03/2022 9:27 AM CDT Josué Del Valle MD PhD LAB POCT ORDERABLES - DE VICE Final Result [facility] [place] [address] documented in this encounter Visit Diagnoses Diagnosis [...] 04/03/2022 documented in this encounter Care Teams Conference Producer Relationship Specialty Start Date End Date Kirt Lindsay DO PCP - General Internal Medicine 02/02/21 Josué Del Valle MD PhD Medical Oncologist/Distribution Designer Medical Oncology 08/26/19 Tay Charlton MD Consulting Physician Gastroenterology 12/03/21 06/11/23 Halie Khan MD [address] [place] [address] Consulting Physician Pulmonary Disease 12/12/21 3 Ant Starks MD [address] [phone] Consulting Physician Transplant Hepatology 01/12/22 documented as of this encounter
--- OUTSIDE RECORDS SUMMARY | 2024-11-22 12:57 | XMS_ITS | Encounter Summary ---
Author Organization [facility] Healthcare Address [address] [place] [address] Care Team Providers Care Electronic Page Makeup System Operator Name Role Phone Josué Del Valle MD PhD Unavailable [phone] Kirt Lindsay DO Primary Care Provider [phone] Tay Charlton MD Unavailable Halie Khan MD Unavailable [phone] StarksAnt goldman MD Unavailable [phone] Encounter Details Date Type Department Care Team (Late st Contact Info) Description 05/11/2022 Telephone [facility] Social Work [address] [place] [id number] Anna Vaughn LCSW Social History Tobacco Use [...] file 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 Gender Identity Not on file [...] on filedocumented in this encounter Care Teams Electronic Page Makeup System Operator Relationship Specialty Start Date End Date Kirt Lindsay DO PCP - General Internal Medicine 02/02/21 Josué Del Valle MD PhD Medical Oncologist/Calcine Furnace Tender Medical Oncology 08/26/19 Tay Charlton MD Consulting Physician Gastroenterology 12/03/21 06/11/23 Halie Khan MD [address] [address] Consulting Physician Pulmonary Disease 12/12/21 3 Ant Starks MD [address] [address] Consulting Physician Transplant Hepatology 01/12/22 documented as of this encounter
--- OUTSIDE RECORDS SUMMARY | 2024-11-22 12:57 | XMS_ITS | Encounter Summary ---
Author Organization [facility] Address [address] [place] [address] Phone Care Team Providers Care Cruise Counselor Name Role Phone Josué Del Valle MD PhD Unavailable [phone] Kirt Lindsay DO Primary Care Provider [phone] Tay Charlton MD Unavailable [phone] Halie Khan MD Unavailable [phone] [place] MD Unavailable [phone] Reason for Referral * MRI/CAT/PET Scan (Routine) - Closed Specialty Diagnoses / Procedures Referred By Contac t Referred To Contact Radiology Diagnoses 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) Procedures CT chest with contrast Josué Del Valle MD PhD Phone: tel: fax: [address] [address] Referral ID Status Reason Start Date Expiration Date Visits Re quested Visits Authorized [id number] Closed 02/28/2022 03/30/2023 1 1 Encounter Details Date Type Department Care Team (Late st Contact Info) Description 02/28/2022 9:20 AM CDT Office Visit [facility] Bone Marrow Transplant [address] [facility] 7th Floor, [place] [address] Narcisa Kilgore NP [address] DIV IM BONE MARROW TRANSPLANT, [address] [place] [address] 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) [...] file 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 TREATMENT HISTORY: 1. Induction with 7+3 and HiDAC consolidation x3. 2. Decitabine maintenance on the [facility] [address] protocol. 3. Relapsed disease, status post [facility]. 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 TRANSPLANT HISTORY: Status post an allogeneic transplant with busulfan and Cytoxan on the [facility] allogeneic study with hissister, 08/27 match; [...] transplant + 4494 days ago. 2. Chronic jfhmw-kqsorj-ehwb disease. He Is off Jakafi stopped on his own. He completed cycle 1 and2. 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 and MMF 1 g b.i.d., tacro [...] (LDH) 172 100 - 250 Units/L [facility] Comment:Testing performed by : [facility], [address] [place] [phone] Blood 04/03/2022 10:3 9 AM CDT 04/03/2022 10:40 AM CDT Josué Del Valle MD PhD LAB BLOOD ORDERABLES Fin al Result [facility] Department [place] [address] * (ABNORMAL) Comprehensive metabolic panel (04/03/2022 10:39 AM CDT) Pathologist [facility] Sodium 135 135 - 145 mmol/L [facility] Comment:Testing performed by : [facility], [address] [place] [phone] Potassium, pl 4.4 3.3 - 4.9 mmol/L [facility] Comment:Testing performed by : [facility], [address] [place] [phone] Chloride 98 97 - 110 mmol/L [facility] Comment:Testing performed by : [facility], [address] [place] [phone] CO2 30 22 - 32 mmol/L [facility] Comment:Testing performed by : [facility], [address] [place] [phone] Anion gap 7 2 - 15 mmol/L [facility] Comment:Testing performed by : [facility], [address] [place] [phone] BUN 16 8 - 25 mg/dL [facility] Comment:Testing performed by : [facility] [address] [address] Creatinine 0.86 0.80 - 1.30 mg/dL [facility] Comment:Testing performed by : [facility], [address] [place] [phone] Glucose 105 70 - 199 mg/dL [facility] [...] was last revised 2017. Testing performed by: [place] [id number] Calcium 9.8 8.5 - 10.3 mg/dL [facility] Comment:Testing performed by : [address] [address] Bilirubin, total 0.3 0.1 - 1.2 mg/dL [facility] Comment:Testing performed by : [address] [address] Protein, pl 7.3 6.5 - 8.5 g/dL [facility] Comment:Testing performed by : [address] [address] Albumin 4.2 3.5 - 5.0 g/dL [facility] Comment:Testing performed by : [address] [address] Alk phos 174(H) 40 - 130 Units/L [facility] Comment:Testing performed by : [place] [id number] ALT 24 7 - 55 Units/L [facility] Comment:Testing performed by : [address] AST 29 10 - 50 Units/L [facility] Comment:Testing performed by : [facility], [address] [place] [phone] Blood 04/03/2022 10:3 9 AM CDT 04/03/2022 10:40 AM CDT us Josué Del Valle MD PhD LAB BLOOD ORDERABLES Fin al Result [facility] [place] [address] * (ABNORMAL) CBC with auto differential (04/03/2022 10:39 AM CDT) WBC 10.1(H) 3.8 - 9.8 K/cumm [facility] Comment:Testing performed by : [facility], [address] [place] [phone] Hgb 13.2(L) 13.8 - 17.2 g/dL [facility] Comment:Testing performed by : [facility], [address] [place] [phone] Hct 38.6(L) 40.7 - 50.3 % [facility] Comment:Testing performed by : [facility], [address] [place] [phone] Plt 253 140 - 440 K/cumm [facility] Comment:Testing performed by : [address] [address] MPV 8.0 6.8 - 10.4 fL [facility] Comment:Testing performed by : [facility], [address] [place] [phone] RBC 3.61(L) 4.50 - 5.70 M/cumm [facility] Comment:Testing performed by : [address] [address] MCV 106.9(H) 80.0 - 97.6 fL [facility] Comment:Testing performed by : [address] [address] MCH 36.5(H) 26.7 - 33.7 pg [facility] Comment:Testing performed by : [facility], [address] [facility] [address] MCHC 34.2 32.7 - 35.5 g/dL [facility] Comment:Testing performed by : [facility], [address] [place] [phone] RDW CV 14.1 11.8 - 14.6 % [facility] Comment:Testing performed by : [facility], [address] [place] [phone] NRBC abs 0.00 0.00 - 0.01 K/cumm [facility] Comment:Testing performed by : [facility], [address] [place] [phone] Blood 04/03/2022 10:3 9 AM CDT 04/03/2022 10:40 AM CDT Josué Del Valle MD PhD LAB BLOOD ORDERABLES Fin al Result Performing Organization Address City/State/[facility] Co de Phone Number [facility] [place] [address] * CT chest with contrast (04/03/2022 10:07 [...] Potassium, whole blood (02/28/2022 10:13 AM CDT) [facility] Potassium, bld 4.4 3.3 - 4.9 mmol/L [facility] Blood 02/28/2022 10:1 3 AM CDT 02/28/2022 10:21 AM CDT Narcisa Kilgore CALL CENTER TRAINER LAB BLOOD ORDERABLES Pilar l Result [facility] [place] [address] * Vitamin D 25 hydroxy (02/28/2022 8:57 AM CDT) [facility] Vitamin D 25-OH 56 30 - 80 ng/mL [facility] Blood 02/28/2022 8:57 AM CDT 02/28/2022 9:26 AM CDT Narcisa Kilgore CALL CENTER TRAINER LAB BLOOD ORDERABLES Pilar l Result [facility] [place] [address] * TSH reflex to free T4 (02/28/2022 8:57 AM CDT) [facility] TSH 0.64 0.30 - 4.20 mcIUnit/mL [facility] Blood 02/28/2022 8:57 AM CDT 02/28/2022 9:26 AM CDT us Narcisa Kilgore CALL CENTER TRAINER LAB BLOOD ORDERABLES Pilar armas Result [facility] [place] [address] * Lipid panel (02/28/2022 8:57 AM CDT) [...] on 2018. Triglycerides 82 <=149 mg/dL [facility] Comment: Interpretive Data Ages < or [...] on 2018. HDL 59 >=40 mg/dL [facility] Comment: Interpretive Data Ages < or [...] 2018. LDL, calculated 78 <=129 mg/dL [facility] Comment: Interpretive Data Ages < or [...] revised on 2018. Non-HDL Cholesterol 94 mg/dL [facility] Comment: Interpretive Data Ages < or [...] last revised on 2018. Chol/HDL ratio 3 [facility] [employer] Blood 02/28/2022 8:57 AM CDT 02/28/2022 9:26 AM CDT Narcisa Kilgore NP LAB BLOOD ORDERABLES Pilar armas Result [facility] Department [place] [address] * Testosterone, Total and Free, Serum (02/28/2022 8:49 AM CDT) [facility] Testosterone 511 240 - 950 ng/dL [facility] Comment: ADDITIONAL INFORMATION Testing performed by Liquid Chromatography-Tandem Mass Spectrometry (LC-MS/MS). This test was developed and its performance characteristics determined by [facility] in a manner consistent with CLIA requirements. This test has not been cleared or approved by the U.S. Food and Drug Administration. Test Performed by: [facility] [address] [place] [address] Billing Representative: Neftaly Keita M.D. Ph.D.; CLIA# [id number] Testosterone, free 7.67 3.87 - 14.7 ng/dL [facility] Comment: ADDITIONAL INFORMATION Testing performed by [facility]. This test was developed and its performance characteristics determined by [facility] in a manner consistent with CLIA requirements. This test has not been cleared or approved by the U.S. Food and Drug Administration. Blood 02/28/2022 8:49 AM CDT 02/28/2022 10:56 AM CDT Narcisa Kilgore CALL CENTER TRAINER LAB BLOOD ORDERABLES Pilar pawel Result [facility] Department [place] [address] documented in this encounter Visit Diagnoses Diagnosis [...] 04/03/2022 documented in this encounter Care Teams Cruise Counselor Relationship Specialty Start Date End Date Kirt Lindsay DO PCP - General Internal Medicine 02/02/21 Josué Del Valle MD PhD Medical Oncologist/Bulb Grower Medical Oncology 08/26/19 Tay Charlton MD Consulting Physician Gastroenterology 12/03/21 06/11/23 Halie Khan MD [address] [place] [address] Consulting Physician Pulmonary Disease 12/12/21 3 Ant Starks MD [address] [address] Consulting Physician Transplant Hepatology 01/12/22 documented as of this encounter
--- OUTSIDE RECORDS SUMMARY | 2024-11-22 12:57 | XMS_ITS | Encounter Summary ---
Author Organization [facility] Address [address] [place] [address] Phone Care Team Providers Care Crystal Machining Coordinator Name Role Phone Josué Del Valle MD PhD Unavailable [phone] Kirt Lindsay DO Primary Care Provider [phone] Tay Charlton MD Unavailable [phone] Halie Khan MD Unavailable [phone] Ant Starks MD Unavailable [phone] Reason for Visit * Oncology (Routine) - Closed Specialty Diagnoses / Procedures Referred By Contac t Referred To Contact Lab Diagnoses Type 2 diabetes mellitus with hyperosmolarity without coma, with long-term current use of insulin (HCC) Osteopenia, unspecified location Procedures ONCBCN ARM DRAW APPT [facility] Scheduling [address] [place] [address] Phone: tel: [facility] Oncology [address] [facility] 7th Floor [address] [place] [address] Phone: tel: Referral ID Status Reason Start Date Expiration Date V isits Requested Visits Authorized [id number] Closed Specialty Services Required 11/23/2021 11/17/2023 99 99 Encounter Details Date Type Department Care Team (Late st Contact Info) Description 04/03/2022 9:30 AM CDT Lab [facility] Oncology [address] [facility] 7th Floor [address] [place] [address] 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) [...] on file 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 Gender Identity Not on file Sexual Orientation Not on file documented as of this encounter Plan of Treatment Not on file documented as of this encounter Visit Diagnoses Diagnosis 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) documented in this encounter Orders Appointment Requests Count Last Ordered Date Fi rst Ordered Date ONCBCN LAB APPOINTMENT 1 04/03/2022 documented in this encounter Care Teams Crystal Machining Coordinator Relationship Specialty Start Date End Date Kirt Lindsay DO PCP - General Internal Medicine 02/02/21 Josué Del Valle MD PhD Medical Oncologist/French Pastry Cook Medical Oncology 08/26/19 Tay Charlton MD Consulting Physician Gastroenterology 12/03/21 06/11/23 Halie Khan MD [address] [address] Consulting Physician Pulmonary Disease 12/12/21 3 Ant Starks MD [address] [facility] [address] [place] [address] Consulting Physician Transplant Hepatology 01/12/22 documented as of this encounter
--- OUTSIDE RECORDS SUMMARY | 2024-11-22 12:57 | XMS_ITS | Encounter Summary ---
Author Organization [facility] Address [address] [place] [address] Care Team Providers Care Billboard Poster Helper Name Role Phone Josué Del Valle MD PhD Unavailable [phone] Kirt Lindsay DO Primary Care Provider [phone] Tay Charlton MD Unavailable Halie Khan MD Unavailable [phone] StarksAnt goldman MD Unavailable [phone] Reason for Visit * Reason Comments OP Infusion zometa * Episode Based Medications (Routine) - Closed Specialty Diagnoses / Procedures Referred By Contac t Referred To Contact Diagnoses Other osteoporosis without current pathological fracture H/O allogeneic bone marrow transplant (HCC) Procedures [place] ZOL[address] Montejo MD [address] [facility] [address] [place] [address] Phone: tel: fax: [facility] Oncology [address] [facility] 7th [place] [address] Phone: tel: Referral ID Status Reason Start Date Expiration Date Visits Re quested Visits Authorized [id number] Closed 08/11/2021 11/17/2022 1 12 Encounter Details Date Type Department Care Team (Latest Contact Info) Description 02/28/2022 9:59 AM CDT - 02/28/2022 11:15 AM CDT Hospital Encounter [facility] ([facility]) [facility] [place] [address] Josué Del Valle MD PhD [address] DIV IM BONE MARROW TRANSPLANT, [address] [place] [address] 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) [...] on file 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 Saturday through Saturday, 8 AM to 4:30 PM, call [phone] [facility] Oncology Physician at [facility] and ask for a member of your [...] mg tabletIndications:AML (acute myeloid leukemia) in remission ([facility]),Type 2 diabetes mellitus with hyperglycemia, with long-term current use of insulin ([facility]),Kjnyc-vecymd-njrq disease ([facility]),H/O allogeneic bone marrow transplant ([facility]),Pure hypercholesterolemia Take 1 tablet (40 mg total) by mouth daily 30 tablet 6 0 07/30/20 24 blood-glucose meter miscIndications:Type 2 diabetes mellitus with hyperosmolarity without coma, with long-term current use of insulin ([facility]) 1 Device 3 (three) times a day [...] [facility]) Take 1 tablet (20 mg total) [...] [facility]) INJECT 15 UNITS NIGHTLY SUB-Q. 1 pen 5 1 02/20/20 24 insulin lispro (HumaLOG, ADMELOG) 100 unit/mL pen for injectionIndications:Typ e 2 diabetes mellitus with hyperosmolarity without coma, with long-term current use of insulin ([facility]) INJECT 5-10 UNITS TID WITH MEALS PLUS SLIDING SCALE. TDD OF 35 UNITS. 10 pen 6 1 02/20/20 24 montelukast (SINGULAIR) 10 mg tabletIndications:AML (acute myeloid leukemia) in remission (HCC),Msozs-nsontm-kbeo disease (HCC) TAKE 1 TABLET BY MOUTH EVERY DAY 90 tablet 2 03/26/20 22 mycophenolate mofetil (CELLCEPT) 500 mg tabletIndications:AML (acute myeloid leukemia) in remission (HCC),Jdtci-iuyzri-hkrl disease (HCC) TAKE 2 TABLETS(1000 MG) BY [...] 2 02/20/20 24 Trelegy Ellipta 100-62.5-25 mcg inhalerIndications:[facility] hospasm Prevention with COPD Inhale 1 [...] 02/28/2022 11:13 AM CDT Patient arrived to [facility] for zoledronic acid infusion and lab draw. [...] 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) ([facility]) documented in this encounter Results * Potassium, whole blood (02/28/2022 10:13 AM CDT) Potassium, bld 4.4 3.3 - 4.9 mmol/L [facility] Blood 02/28/2022 10:1 3 AM CDT 02/28/2022 10:21 AM CDT us Narcisa Kilgore NP LAB BLOOD ORDERABLES Pilar l Result [facility] [place] [address] documented in this encounter Visit Diagnoses Diagnosis AML (acute myeloid leukemia) in remission (HCC)- Primary Other osteoporosis without current pathological fracture H/O allogeneic bone marrow transplant ([facility]) documented in this encounter Administered Medications Inactive [...] 02/28/2022 documented in this encounter Care Teams Billboard Poster Helper Relationship Specialty Start Date End Date Kirt Lindsay DO PCP - General Internal Medicine 02/02/21 Josué Del Valle MD PhD Medical Oncologist/Health Manager Medical Oncology 08/26/19 Tay Charlton MD Consulting Physician Gastroenterology 12/03/21 06/11/23 Halie Khan MD [address] [place], [place] [address] Consulting Physician Pulmonary Disease 12/12/21 3 Ant Starks MD [address] [place], [place] [address] Consulting Physician Transplant Hepatology 01/12/22 documented as of this encounter
--- OUTSIDE RECORDS SUMMARY | 2024-11-22 12:57 | XMS_ITS | Encounter Summary ---
Author Organization [facility] Address [address] [place] [address] Phone Care Team Providers Care Stonecutter Hand Name Role Phone Josué Del Valle MD PhD Unavailable [phone] Kirt Lindsay DO Primary Care Provider [phone] Tay Charlton MD Unavailable [phone] Halie Khan MD Unavailable [phone] StarksAnt goldman MD Unavailable [phone] Reason for Visit * Reason Onset Date Comments Appointment/Schedules 04/06/2022 Encounter Details Date Type Department Care Team (Late st Contact Info) Description 04/06/2022 Telephone [facility] Oncology [address] [facility] 7th [place] [address] [place] [address] Bonnie Lara, BECKI Appointment/Schedules Social [...] on file Legal Sex Male 10:[address] Gender Identity Not on file Sexual Orientation [...] on filedocumented in this encounter Care Teams Stonecutter Hand Relationship Specialty Start Date End Date Kirt Lindsay DO PCP - General Internal Medicine 02/02/21 Josué Del Valle MD PhD Medical Oncologist/Voice Data Communications Engineer Medical Oncology 08/26/19 Tay Charlton MD Consulting Physician Gastroenterology 12/03/21 06/11/23 Halie Khan MD [address] [address] Consulting Physician Pulmonary Disease 12/12/21 3 Ant Starks MD [address] [address] Consulting Physician Transplant Hepatology 01/12/22 documented as of this encounter
--- OUTSIDE RECORDS SUMMARY | 2024-11-22 12:57 | XMS_ITS | Encounter Summary ---
Author Organization [facility] Address [address] [place] [address] Care Team Providers Care Environmental Issues Instructor Name Role Phone Josué Del Valle MD PhD Unavailable [phone] Kirt Lindsay DO Primary Care Provider [phone] Tay Charlton MD Unavailable [phone] Halie Khan MD Unavailable [phone] StarksAnt goldman MD Unavailable [phone] Encounter Details Date Type Department Care Team (Late st Contact Info) Description 03/30/2022 Telephone [facility] Social Work [address] [place] [address] Anna Vaughn LCSW Social History Tobacco Use [...] file 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 [employer] - has accepted round trip, tracking #[id number]. Health And Safety Coordinator Time: 7:40am Appt time: 8:40am Pick-Up Address: [address] [facility] [address] Drop Off Address: [facility] [address] SW called and left pt VM with this information and encouraged to reach out with any questions or concerns. BRIGID Casarez, MARLIN documented in this encounter Plan of Treatment Not on file documented as of this encounter Visit Diagnoses Not on filedocumented in this encounter Care Teams Environmental Issues Instructor Relationship Specialty Start Date End Date Kirt Lindsay DO PCP - General Internal Medicine 02/02/21 Josué Del Valle MD PhD Medical Oncologist/Freelance Copywriter Medical Oncology 08/26/19 Tay Charlton MD Consulting Physician Gastroenterology 12/03/21 06/11/23 Halie Khan MD [address] [place] [address] Consulting Physician Pulmonary Disease 12/12/21 3 Ant Starks MD [address] [place] [address] Consulting Physician Transplant Hepatology 01/12/22 documented as of this encounter
--- OUTSIDE RECORDS SUMMARY | 2024-11-22 12:57 | XMS_ITS | Encounter Summary ---
Author Organization [facility] Healthcare Address [address] [place] [address] Care Team Providers Care Photogravure Press Operator Name Role Phone Josué Del Valle MD PhD Unavailable [phone] Kirt Lindsay DO Primary Care Provider [phone] Tay Charlton MD Unavailable [phone] Halie Khan MD Unavailable [phone] StarksAnt goldman MD Unavailable [phone] Encounter Details Date Type Department Care Team (Latest Contact Info) Description 04/03/2022 10:10 AM CDT - 04/03/2022 11:59 PM CDT Hospital Encounter 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 Gender Identity Not on file Sexual Orientation [...] long-term current use of insulin ([facility]),Xmfja-uhqrwm-levw disease ([facility]),H/O allogeneic bone marrow [...] unit capsuleIndications:AML (acute myeloid leukemia) in remission ([facility]),H/O allogeneic bone marrow transplant ([facility]),Vitamin D deficiency TAKE 1 CAPSULE [...] mg tabletIndications:AML (acute myeloid leukemia) in remission (HCC),Hxxaa-cawgvr-phez disease (HCC) TAKE 1 TABLET BY MOUTH EVERY DAY 90 tablet 2 06/26/20 22 mycophenolate mofetil (CELLCEPT) 500 mg tabletIndications:AML (acute myeloid leukemia) in remission (HCC),Navln-mowzyi-ercl disease (HCC) TAKE 2 TABLETS(1000 MG) BY [...] 2 02/20/20 24 Trelegy Ellipta 100-62.5-25 mcg inhalerIndications:[facility] hospasm Prevention with COPD Inhale 1 puff [...] Results * eGFR (04/03/2022 10:39 AM CDT) [facility] eGFR >90 90 - 130 mL/min/1. 73 m2 [facility] Comment: Interpretive Data Reference Interval Normal [...] was last reviewed 2021. Testing performed by: [facility], [address] [place] [phone] Blood 04/03/2022 10:3 9 AM CDT 04/03/2022 10:40 AM CDT us Josué Del Valle MD PhD LAB BLOOD ORDERABLES Fin al Result [facility] Department [place] [address] * Differential, auto (04/03/2022 10:39 AM CDT) Neutrophil abs 5.3 1.8 - 6.6 K/cumm [facility] Comment:Testing performed by : [facility], [address] [place] [phone] Lymphocyte abs 3.3 1.2 - 3.3 K/cumm [facility] Comment:Testing performed by : [facility], [address] [place] [phone] Monocyte abs 1.0 0.2 - 1.2 K/cumm [facility] Comment:Testing performed by : [facility], [address] [place] [phone] Eosinophil abs 0.4 0.0 - 0.5 K/cumm [facility] Comment:Testing performed by : [facility], [address] [place] [phone] Basophil abs 0.1 0.0 - 0.2 K/cumm [facility] Comment:Testing performed by : [facility], [address] [place] [phone] Neutrophil pct 51.9 % [facility] Comment: Interpretive Data Percent cell count reference ranges are not reported, since discordance with absolute values may lead to misinterpretation of CBC data. Current Interpretive Data was last revised on 2018. Testing performed by: [facility], [address] [place] [phone] Lymphocyte pct 32.4 % [facility] Comment: Interpretive Data Percent cell count reference ranges are not reported, since discordance with absolute values may lead to misinterpretation of CBC data. Current Interpretive Data was last revised on 2018. Testing performed by: [facility], [address] [place] [phone] Monocyte pct 10.1 % [facility] Comment:Testing performed by : [facility], [address] [place] [phone] Eosinophil pct 4.4 % [facility] Comment:Testing performed by : [facility], [address] [place] [phone] Basophil pct 1.2 % [facility] Comment:Testing performed by : [facility], [address] [place] [phone] Blood 04/03/2022 10:3 9 AM CDT 04/03/2022 10:40 AM CDT us Josué Del Valle MD PhD LAB BLOOD ORDERABLES Fin al Result [facility] Department [place] [address] * (ABNORMAL) CBC with auto differential (04/03/2022 10:39 AM CDT) WBC 10.1(H) 3.8 - 9.8 K/cumm [facility] Comment:Testing performed by : [facility], [address] [place] [phone] Hgb 13.2(L) 13.8 - 17.2 g/dL [facility] Comment:Testing performed by : [facility], [address] [place] [phone] Hct 38.6(L) 40.7 - 50.3 % [facility] Comment:Testing performed by : [facility], [address] [place] [phone] Plt 253 140 - 440 K/cumm [facility] Comment:Testing performed by : [facility], [address] [place] [phone] MPV 8.0 6.8 - 10.4 fL [facility] Comment:Testing performed by : [address] [phone] RBC 3.61(L) 4.50 - 5.70 M/cumm [facility] Comment:Testing performed by : [address] [phone] MCV 106.9(H) 80.0 - 97.6 fL [facility] Comment:Testing performed by : [facility], [address] [place] [phone] MCH 36.5(H) 26.7 - 33.7 pg [facility] Comment:Testing performed by : [facility], [address] [place] [phone] MCHC 34.2 32.7 - 35.5 g/dL [facility] Comment:Testing performed by : [facility], [address] [place] [phone] RDW CV 14.1 11.8 - 14.6 % [facility] DENT Comment:Testing performed by : [facility], [address] [place] [phone] NRBC abs 0.00 0.00 - 0.01 K/cumm [facility] DENT Comment:Testing performed by : [facility], [address] [place] [phone] Blood 04/03/2022 10:3 9 AM CDT 04/03/2022 10:40 AM CDT us Josué Del Valle MD PhD LAB BLOOD ORDERABLES Fin al Result [facility] Department [place] [address] * (ABNORMAL) Comprehensive metabolic panel (04/03/2022 10:39 AM CDT) Sodium 135 135 - 145 mmol/L [facility] Comment:Testing performed by : [facility], [address] [place] [phone] Potassium, pl 4.4 3.3 - 4.9 mmol/L [facility] Comment:Testing performed by : [facility], [address] [place] [phone] Chloride 98 97 - 110 mmol/L [facility] Comment:Testing performed by : [facility], [address] [place] [phone] CO2 30 22 - 32 mmol/L [facility] Comment:Testing performed by : [facility], [address] [place] [phone] Anion gap 7 2 - 15 mmol/L [facility] Comment:Testing performed by : [facility], [address] [place] [phone] BUN 16 8 - 25 mg/dL [facility] Comment:Testing performed by : [facility], [address] [place] [phone] Creatinine 0.86 0.80 - 1.30 mg/dL [facility] Comment:Testing performed by : [facility], [address] [place] [phone] Glucose 105 70 - 199 mg/dL CERNER [...] was last revised 2017. Testing performed by: [facility], [address] [place] [phone] Calcium 9.8 8.5 - 10.3 mg/dL [facility] Comment:Testing performed by : [facility], [address] [place] [phone] Bilirubin, total 0.3 0.1 - 1.2 mg/dL [facility] Comment:Testing performed by : [facility], [address] [place] [phone] Protein, pl 7.3 6.5 - 8.5 g/dL [facility] Comment:Testing performed by : [facility], [address] [place] [phone] Albumin 4.2 3.5 - 5.0 g/dL [facility] Comment:Testing performed by : [facility], [address] [place] [phone] Alk phos 174(H) 40 - 130 Units/L [facility] Comment:Testing performed by : [facility], [address] [place] [phone] ALT 24 7 - 55 Units/L [facility] Comment:Testing performed by : [facility], [address] [place] [phone] AST 29 10 - 50 Units/L [facility] Comment:Testing performed by : [facility], [address] [place] [phone] Blood 04/03/2022 10:3 9 AM CDT 04/03/2022 10:40 AM CDT Josué Del Valle MD PhD LAB BLOOD ORDERABLES Fin al Result Performing Organization Address [facility] Co de Phone Number [facility] Department [place] [address] * Lactate dehydrogenase (LD) (04/03/2022 10:39 AM CDT) Lactate dehydrogenase (LDH) 172 100 - 250 Units/L [facility] Comment:Testing performed by : [facility], [address] [place] [phone] Blood 04/03/2022 10:3 9 AM CDT 04/03/2022 10:40 AM CDT Josué Del Valle MD PhD LAB BLOOD ORDERABLES Fin al Result Performing Organization Address [facility] Co de Phone Number [facility] Department [place] [address] documented in this encounter Visit Diagnoses Diagnosis AML (acute myeloid leukemia) in remission (HCC) documented in this encounter Care Teams Photogravure Press Operator Relationship Specialty Start Date End Date Kirt Lindsay DO PCP - General Internal Medicine 02/02/21 Josué Del Valle MD PhD Medical Oncologist/Store Mgr Medical Oncology 08/26/19 Tay Charlton MD Consulting Physician Gastroenterology 12/03/21 06/11/23 Halie Khan MD [address] [facility] [address] [place] [address] Consulting Physician Pulmonary Disease 12/12/21 3 Ant tSarks MD [address] [facility] [address] [place] [address] Consulting Physician Transplant Hepatology 01/12/22 documented as of this encounter
--- OUTSIDE RECORDS SUMMARY | 2024-11-22 12:57 | XMS_ITS | Encounter Summary ---
Author Organization [facility] Address [address] [place] [address] Phone Care Team Providers Care Photoengraving Photographer Name Role Phone Josué Del Valle MD PhD Unavailable [phone] Kirt Lindsay DO Primary Care Provider [phone] Tay Charlton MD Unavailable [phone] Halie Khan MD Unavailable [phone] StarksAnt goldman MD Unavailable [phone] Encounter Details Date Type Department Care Team (Late st Contact Info) Description 05/14/2022 Telephone [facility] Bone Marrow Transplant [address] [facility] 7th Floor, [place] [address] Melody Bolanos V. 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 Gender Identity Not on file Sexual [...] on filedocumented in this encounter Care Teams Photoengraving Photographer Relationship Specialty Start Date End Date Kirt Lindsay DO PCP - General Internal Medicine 02/02/21 Josué Del Valle MD PhD Medical Oncologist/Returns Clerk Medical Oncology 08/26/19 Tay Charlton MD Consulting Physician Gastroenterology 12/03/21 06/11/23 Halie Khan MD [address] [address] Consulting Physician Pulmonary Disease 12/12/21 3 Ant Starks MD [address] [address] Consulting Physician Transplant Hepatology 01/12/22 documented as of this encounter
--- OUTSIDE RECORDS SUMMARY | 2024-11-22 12:57 | XMS_ITS | Encounter Summary ---
Author Organization [facility] Address [address] [place] [address] Phone Care Team Providers Care Van Driver Helper Name Role Phone Josué Del Valle MD PhD Unavailable [phone] Kirt Lindsay DO Primary Care Provider [phone] Tay Charlton MD Unavailable [phone] Halie Khan MD Unavailable [phone] Ant Starks MD Unavailable [phone] Reason for Visit * Oncology (Routine) - Closed Specialty Diagnoses / Procedures Referred By Contac t Referred To Contact Lab Diagnoses Type 2 diabetes mellitus with hyperosmolarity without coma, with long-term current use of insulin (HCC) Osteopenia, unspecified location Procedures ONCBCN ARM DRAW APPT [facility] Scheduling [address] [place] [address] Phone: tel: [facility] Oncology [address] [facility] Advanced Medicine 7th [place] [address] [place] [address] Phone: tel: Referral ID Status Reason Start Date Expiration Date V isits Requested Visits Authorized [id number] Closed Specialty Services Required 11/23/2021 11/17/2023 99 99 Encounter Details Date Type Department Care Team (Late st Contact Info) Description 02/28/2022 8:15 AM CDT Lab [facility] Oncology [address] [facility] 7th [place] [address] [place] [address] 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); Type 2 diabetes mellitus with hyperosmolarity without coma, with long-term current use of insulin (CMS/HCC) (HCC); Gvwaj-lvqdch-tcwl disease (HCC); Other osteoporosis without current pathological [...] on file Legal Sex Male 10:48 AM DISCHARGE RN Gender Identity Not on file Sexual Orientation [...] of insulin (CMS/HCC) (HCC) Vitamin D deficiency Wfqcb-qdjoeh-vhuw disease (HCC) Other osteoporosis without current pathological fracture Screening for thyroid disorder VITAMIN D 25 HYDROXY Routine 02/28/2022 8:57 AM CDT 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) T-HELPER CELLS (CD4) COUNT Routine 02/28/2022 8:57 AM CDT TSH STAT 02/28/2022 8:57 AM CDT Type 2 diabetes mellitus with hyperosmolarity without coma, with long-term current use of insulin (CMS/HCC) (HCC) Vitamin D deficiency Clpbv-vcuxkq-hsqa disease (HCC) Other osteoporosis without current pathological fracture Screening for thyroid disorder T4, FREE STAT 02/28/2022 8:57 AM CDT Type 2 diabetes mellitus with hyperosmolarity without coma, with long-term current use of insulin (CMS/HCC) (HCC) Vitamin D deficiency Dcuqw-cazvkh-fviz disease (HCC) Other osteoporosis without current pathological fracture Screening for thyroid disorder LACTATE DEHYDROGENASE Routine 02/28/2022 8:57 AM CDT 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) HEMOGLOBIN A1C STAT 02/28/2022 8:57 AM CDT Type 2 diabetes mellitus with hyperosmolarity without coma, with long-term current use of insulin (CMS/HCC) (HCC) Vitamin D deficiency Efdex-ltlbes-aici disease (HCC) Other osteoporosis without current pathological [...] cells (CD4) count (02/28/2022 8:57 AM CDT) [facility] CD4 pct 35 31 - 64 % [facility] CD4 Absolute 1,435(H) 365 - 1,294 cells/mcL [facility] Blood 02/28/2022 8:57 AM CDT 02/28/2022 10:11 AM CDT Narcisa Kilgore NP LAB BLOOD ORDERABLES Pilar armas Result Performing Organization Address City/State/[facility] Co de Phone Number [facility] One [facility] Department [place] [address] * eGFR (02/28/2022 8:57 AM CDT) [facility] eGFR >90 90 - 130 mL/min/1. 73 m2 [facility] Comment: Interpretive Data Reference Interval [...] was last reviewed 2021. Testing performed by: [facility], [address] [place] [phone] Blood 02/28/2022 8:57 AM CDT 02/28/2022 9:00 AM CDT us Narcisa Kilgore NP LAB BLOOD ORDERABLES Pilar l Result [facility] One [facility] Department [place] [address] * (ABNORMAL) Differential, auto (02/28/2022 8:57 AM CDT) Neutrophil abs 3.3 1.8 - 6.6 K/cumm [facility] Comment:Testing performed by : [facility], [address] [place] [phone] Lymphocyte abs 4.1(H) 1.2 - 3.3 K/cumm [facility]J Comment:Testing performed by : [facility], [address] [place] [phone] Monocyte abs 1.1 0.2 - 1.2 K/cumm [facility] BJ Comment:Testing performed by : [facility], [address] [place] [phone] Eosinophil abs 0.4 0.0 - 0.5 K/cumm [facility] BJ Comment:Testing performed by : [facility], [address] [place] [phone] Basophil abs 0.1 0.0 - 0.2 K/cumm [facility]ER BJ Comment:Testing performed by : [address] [address] Neutrophil pct 36.5 % [facility] Comment: Interpretive Data Percent cell count reference ranges are not reported, since discordance with absolute values may lead to misinterpretation of CBC data. Current Interpretive Data was last revised on 2018. Testing performed by: [facility], [facility] [phone] Lymphocyte pct 45.3 % [facility] Comment: Interpretive Data Percent cell count reference ranges are not reported, since discordance with absolute values may lead to misinterpretation of CBC data. Current Interpretive Data was last revised on 2018. Testing performed by: [facility], [address] [place] [phone] Monocyte pct 12.2 % [facility] Comment:Testing performed by : [facility], [address] [place] [phone] Eosinophil pct 4.8 % [facility] Comment:Testing performed by : [facility], [address] [place] [phone] Basophil pct 1.2 % [facility] Comment:Testing performed by : [facility], [address] [place] [phone] Blood 02/28/2022 8:57 AM CDT 02/28/2022 9:00 AM CDT us Narcisa Kilgore CHIEF CARDIOPULMONARY TECHNOLOGIST LAB BLOOD ORDERABLES Pilar l Result Performing Organization Address City/[facility]/ZIP Co de Phone Number [facility] Department [place] [address] * T4, free (02/28/2022 8:57 AM CDT) Free T4 1.15 0.90 - 1.70 ng/dL [facility] Blood 02/28/2022 8:57 AM CDT 02/28/2022 9:[address] Montejo MD LAB BLOOD ORDERABLES Final Resu lt Performing Organization Address City/[facility]/ZIP Co de Phone Number [facility] [place] [address] * TSH (02/28/2022 8:57 AM CDT) Thyroid Stimulating Hormone See Comment 0.30 - 4.20 mcIUnit/m L [facility] Comment:Credited, duplicate test. Blood 02/28/2022 8:57 AM CDT 02/28/2022 9:[address] Montejo MD LAB BLOOD ORDERABLES Final Resu lt Performing Organization Address [facility] Co de Phone Number [facility] Department [place] [address] * (ABNORMAL) Hemoglobin A1c (02/28/2022 8:57 AM CDT) Hgb A1C 7.9(H) 4.0 - 5.6 % [facility] Estimated Average Glucose 180 mg/dL [facility] Comment: The ADA recommends reporting [...] ORDERABLES Final Resu lt Performing Organization Address City/[facility] Co de Phone Number [facility] Department [place] [address] * Albumin Creatinine Ratio, Urine (02/28/2022 8:57 AM CDT) Albumin Ur <12.0 mg/L [facility] Comment: Interpretive Data No reference range established. Current interpretive data was last revised 2019. Creatinine Ur 42.0 mg/dL [facility] Comment: Interpretive Data No reference range established. Current interpretive data was last revised 2019. Albumin Creatinine Ratio, Ur <29 1 - 29 mg/g [facility] Urine 02/28/2022 8:57 AM CDT 02/28/2022 1:[address] Montejo MD LAB URINE ORDERABLES Final Resu lt [facility] One [facility] Department [place] [address] * (ABNORMAL) CBC with auto differential (02/28/2022 8:57 AM CDT) WBC 9.0 3.8 - 9.8 K/cumm [facility] Comment:Testing performed by : [facility], [address] [place] [phone] Hgb 11.6(L) 13.8 - 17.2 g/dL [facility] Comment:Testing performed by : [address] [address] Hct 33.9(L) 40.7 - 50.3 % [facility] Comment:Testing performed by : [facility], [address] [place] [phone] Plt 309 140 - 440 K/cumm [facility] Comment:Testing performed by : [address] [address] MPV 7.5 6.8 - 10.4 fL [facility] Comment:Testing performed by : [address] [address] RBC 3.23(L) 4.50 - 5.70 M/cumm [facility] Comment:Testing performed by : [address] [address] MCV 105.0(H) 80.0 - 97.6 fL [facility] Comment:Testing performed by : [address] [address] MCH 36.0(H) 26.7 - 33.7 pg [facility] Comment:Testing performed by : [address] [address] MCHC 34.2 32.7 - 35.5 g/dL [facility] Comment:Testing performed by : [facility], [address] [place] [phone] RDW CV 16.6(H) 11.8 - 14.6 % [facility] Comment:Testing performed by : [facility], [address] [place] [phone] NRBC abs 0.02(H) 0.00 - 0.01 K/cumm [facility] Comment:Testing performed by : [facility], [address] [place] [phone] Blood 02/28/2022 8:57 AM CDT 02/28/2022 9:00 AM CDT Narcisa Kilgore NP LAB BLOOD ORDERABLES Pilar armas Result [facility] One [facility] Department [place] [address] * (ABNORMAL) Comprehensive metabolic panel (02/28/2022 8:57 AM CDT) Sodium 138 135 - 145 mmol/L [facility] Comment:Testing performed by : [facility], [address] [place] [phone] Potassium, pl 5.7(H) 3.3 - 4.9 mmol/L [facility] Comment:Testing performed by : [facility], [address] [place] [phone] Chloride 101 97 - 110 mmol/L [facility] Comment:Testing performed by : [facility], [address] [place] [phone] CO2 30 22 - 32 mmol/L [facility] Comment:Testing performed by : [address] [phone] Anion gap 7 2 - 15 mmol/L [facility] Comment:Testing performed by : [address] [address] BUN 15 8 - 25 mg/dL [facility] Comment:Testing performed by : [facility] [address] Creatinine 0.66(L) 0.80 - 1.30 mg/dL [facility] Comment:Testing performed by : [facility], [address] [place] [phone] Glucose 163 70 - 199 mg/dL CERNER [...] was last revised 2017. Testing performed by: [place] [phone] Calcium 9.7 8.5 - 10.3 mg/dL [facility] Comment:Testing performed by : [facility], [address] [place] [address] Bilirubin, total 0.4 0.1 - 1.2 mg/dL [facility] Comment:Testing performed by : [address] [address] Protein, pl 7.0 6.5 - 8.5 g/dL [facility] Comment:Testing performed by : [address] [address] Albumin 4.0 3.5 - 5.0 g/dL [facility] Comment:Testing performed by : [address] [address] Alk phos 221(H) 40 - 130 Units/L [facility] Comment:Testing performed by : [address] [address] ALT 48 7 - 55 Units/L [facility] Comment:Testing performed by : [place] [phone] AST 39 10 - 50 Units/L [facility] Comment:Testing performed by : [facility], [address] [place] [address] Blood 02/28/2022 8:57 AM CDT 02/28/2022 9:00 AM CDT Narcisa Kilgore CHIEF CARDIOPULMONARY TECHNOLOGIST LAB BLOOD ORDERABLES Pilar l Result Performing Organization Address [facility] Co de Phone Number [facility] Department [place] [address] * Lactate dehydrogenase (LD) (02/28/2022 8:57 AM CDT) Lactate dehydrogenase (LDH) 199 100 - 250 Units/L [facility] Comment:Testing performed by : [facility], [address] [place] [phone] Blood 02/28/2022 8:57 AM CDT 02/28/2022 9:00 AM CDT Narcisa Kilgore CHIEF CARDIOPULMONARY TECHNOLOGIST LAB BLOOD ORDERABLES Pilar l Result Performing Organization Address [facility] Co de Phone Number [facility] [place] [address] * Lipid panel (02/28/2022 8:57 AM CDT) Cholesterol 153 30 - 199 mg/dL [facility] Comment: Interpretive Data Ages < [...] revised on 2018. Triglycerides 82 <=149 mg/dL [facility] Comment: Interpretive Data Ages < [...] revised on 2018. HDL 59 >=40 mg/dL [facility] Comment: Interpretive Data Ages < [...] on 2018. LDL, calculated 78 <=129 mg/dL [facility] Comment: Interpretive Data Ages < [...] revised on 2018. Non-HDL Cholesterol 94 mg/dL [facility] Comment: Interpretive Data Ages < or [...] last revised on 2018. Chol/HDL ratio 3 [facility] Blood 02/28/2022 8:57 AM CDT 02/28/2022 9:26 AM CDT us Narcisa Kilgore CHIEF CARDIOPULMONARY TECHNOLOGIST LAB BLOOD ORDERABLES Pilar armas Result [facility] One [facility] Department of Laboratories [place], [place] [id number] * TSH reflex to free T4 (02/28/2022 8:57 AM CDT) TSH 0.64 0.30 - 4.20 mcIUnit/mL [facility] Blood 02/28/2022 8:57 AM CDT 02/28/2022 9:26 AM CDT Narcisa Kilgore CHIEF CARDIOPULMONARY TECHNOLOGIST LAB BLOOD ORDERABLES Pilar l Result Performing Organization Address City/[facility] [place] [address] * Vitamin D 25 hydroxy (02/28/2022 8:57 AM CDT) Pathologist [facility] Vitamin D 25-OH 56 30 - 80 ng/mL [facility] Blood 02/28/2022 8:57 AM CDT 02/28/2022 9:26 AM CDT Narcisa Kilgore CHIEF CARDIOPULMONARY TECHNOLOGIST LAB BLOOD ORDERABLES Pilar l Result Performing Organization Address [facility] de Phone Number [facility] [place] [address] * Testosterone, Total and Free, Serum (02/28/2022 8:49 AM CDT) [facility] Testosterone 511 240 - 950 ng/dL [facility] Comment: ADDITIONAL INFORMATION Testing performed by Liquid Chromatography-Tandem Mass Spectrometry (LC-MS/MS). This test was developed and its performance characteristics determined by [facility] in a manner consistent with CLIA requirements. This test has not been cleared or approved by the U.S. Food and Drug Administration. Test Performed by: [facility] [address] [place] [address] Theater Projectionist: Neftaly Keita M.D. Ph.D.; CLIA# [id number] Testosterone, free 7.67 3.87 - 14.7 ng/dL [facility] Comment: ADDITIONAL INFORMATION Testing performed by [facility]. This test was developed and its performance characteristics determined by [facility] in a manner consistent with CLIA requirements. This test has not been cleared or approved by the U.S. Food and Drug Administration. Blood 02/28/2022 8:49 AM CDT 02/28/2022 10:56 AM CDT Narcisa Kilgore CHIEF CARDIOPULMONARY TECHNOLOGIST LAB BLOOD ORDERABLES Pilar l Result [facility] One [facility] [place] [facility] Department [place] [address] documented in this encounter Visit Diagnoses Diagnosis AML (acute myeloid leukemia) in remission (HCC) Type 2 diabetes mellitus with hyperosmolarity without coma, with long-term current use of insulin (HCC) Lywzb-xmcrrb-osjb disease (HCC) Other osteoporosis without current pathological fracture Vitamin D deficiency Screening for thyroid disorder documented in this encounter Care Teams Van Driver Helper Relationship Specialty Start Date End Date Kirt Lindsay DO PCP - General Internal Medicine 02/02/21 Josué Del Valle MD PhD Medical Oncologist/Bag End Sewer Medical Oncology 08/26/19 Tay Charlton MD Consulting Physician Gastroenterology 12/03/21 06/11/23 Halie Khan MD [address] [place], [place] [phone] Consulting Physician Pulmonary Disease 12/12/21 3 Ant Starks MD [address] [place], [place] [address] Consulting Physician Transplant Hepatology 01/12/22 documented as of this encounter
--- OUTSIDE RECORDS SUMMARY | 2024-11-22 12:57 | XMS_ITS | Encounter Summary ---
Author Organization [facility] Address [address] [place] [address] Phone Care Team Providers Care University Internship Name Role Phone Josué Del Valle MD PhD Unavailable [phone] Kirt Lindsay DO Primary Care Provider [phone] Tay Charlton MD Unavailable [phone] Halie Kahn MD Unavailable [phone] StarksAnt goldman MD Unavailable [phone] Encounter Details Date Type Department Care Team (Late st Contact Info) Description 04/11/2022 Orders Only [facility] Bone Marrow Transplant [address] [facility] Advanced Medicine 7th Floor, [place] [address] Silva Mortensen RMA 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); Uvsaw-qhbnkh-qbpp disease (HCC) Social History Tobacco Use Types [...] file 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 Gender Identity Not on file Sexual [...] AML (acute myeloid leukemia) in remission (HCC) Bvgak-cliepi-jwme disease (HCC) documented in this encounter Discontinued Medications Medication Sig Discontinue Reason Start Date End Da te mycophenolate mofetil (CELLCEPT) 500 mg tabletIndications:AML (acute myeloid leukemia) in remission (HCC),Ymosk-mudonf-ghcm disease (HCC) TAKE 2 TABLETS(1000 MG) BY MOUTH TWICE DAILY Reorder 02/21/2021 04/11/2022 documented as of this encounter Care Teams University Internship Relationship Specialty Start Date End Date Kirt Lindsay DO PCP - General Internal Medicine 02/02/21 Josué Del Valle MD PhD Medical Oncologist/Grocery Packer Medical Oncology 08/26/19 Tay Charlton MD Consulting Physician Gastroenterology 12/03/21 06/11/23 Halie Khan MD [address] [address] Consulting Physician Pulmonary Disease 12/12/21 3 Ant Starks MD [address] [facility] [address] [place] [address] Consulting Physician Transplant Hepatology 01/12/22 documented as of this encounter
--- OUTSIDE RECORDS SUMMARY | 2024-11-22 12:57 | XMS_ITS | Encounter Summary ---
Author Organization [facility] Address [address] [place] [address] Phone Care Team Providers Care Highway Engineering Technician Name Role Phone Josué Del Valle MD PhD Unavailable [phone] Kirt Lindsay DO Primary Care Provider [phone] Tay Charlton MD Unavailable [phone] Halie Khan MD Unavailable [phone] Ant Starks MD Unavailable [phone] Encounter Details Date Type Department Care Team (Late st Contact Info) Description 05/28/2022 Orders Only 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 Gender Identity Not on file Sexual [...] documented as of this encounter Care Teams Highway Engineering Technician Relationship Specialty Start Date End Date Kirt Lindsay DO PCP - General Internal Medicine 02/02/21 Josué Del Valle MD PhD Medical Oncologist/Tin Container Straightener Medical Oncology 08/26/19 Tay Charlton MD Consulting Physician Gastroenterology 12/03/21 06/11/23 Halie Khan MD [address] [place], [place] [id number] Consulting Physician Pulmonary Disease 12/12/21 3 Ant Starks MD [address] [place], [place] [id number] Consulting Physician Transplant Hepatology 01/12/22 documented as of this encounter
--- OUTSIDE RECORDS SUMMARY | 2024-11-22 12:57 | XMS_ITS | Encounter Summary ---
Author Organization [facility] Address [address] [place] [address] Phone Care Team Providers Care Weather Observer Name Role Phone Josué Del Valle MD PhD Unavailable [phone] Kirt Lindsay DO Primary Care Provider [phone] Tay Charlton MD Unavailable [phone] Halie Khan MD Unavailable [phone] StarksAnt goldman MD Unavailable [phone] Encounter Details Date Type Department Care Team (Late st Contact Info) Description 06/01/2022 Orders Only [facility] Bone Marrow Transplant [address] 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 Gender Identity Not on file Sexual Orientation Not on file documented as of this encounter Plan of Treatment Not on file documented as of this encounter Visit Diagnoses Not on filedocumented in this encounter Care Teams Weather Observer Relationship Specialty Start Date End Date Kirt Lindsay DO PCP - General Internal Medicine 02/02/21 Josué Del Valle MD PhD Medical Oncologist/Senior Net C Developer Medical Oncology 08/26/19 Tay Charlton MD Consulting Physician Gastroenterology 12/03/21 06/11/23 Halie Khan MD [address] [address] Consulting Physician Pulmonary Disease 12/12/21 3 Ant Starks MD [address] [address] Consulting Physician Transplant Hepatology 01/12/22 documented as of this encounter
--- OUTSIDE RECORDS SUMMARY | 2024-11-22 12:57 | XMS_ITS | Encounter Summary ---
Author Organization [facility] Healthcare Address [address] [place] [address] Care Team Providers Care Sql Report Developer Name Role Phone Josué Del Valle MD PhD Unavailable [phone] Kirt Lindsay DO Primary Care Provider [phone] Tay Charlton MD Unavailable [phone] Halie Khan MD Unavailable StarksAnt goldman MD Unavailable [phone] Encounter Details Date Type Department Care Team (Late st Contact Info) Description 05/10/2022 Telephone [facility] Social Work [address] [place] [id number] Anna Vaughn LCSW Social History Tobacco Use [...] on file 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 SW left VM and will remain available for future assistance. BRIGID Casarez, MARLIN documented in this encounter Plan of Treatment Not on file documented as of this encounter Visit Diagnoses Not on filedocumented in this encounter Care Teams Sql Report Developer Relationship Specialty Start Date End Date Kirt Lindsay DO PCP - General Internal Medicine 02/02/21 Josué Del Valle MD PhD Medical Oncologist/Hadoop Application Developer Medical Oncology 08/26/19 Tay Charlton MD Consulting Physician Gastroenterology 12/03/21 06/11/23 Halie Khan MD [address] [address] Consulting Physician Pulmonary Disease 12/12/21 3 Ant Starks MD [address] [address] Consulting Physician Transplant Hepatology 01/12/22 documented as of this encounter
--- OUTSIDE RECORDS SUMMARY | 2024-11-22 12:57 | XMS_ITS | Encounter Summary ---
Author Organization [facility] Address [address] [place] [address] Phone Care Team Providers Care Patient Portal Representative Name Role Phone Josué Del Valle MD PhD Unavailable [phone] Kirt Lindsay DO Primary Care Provider [phone] Tay Charlton MD Unavailable [phone] Halie Khan MD Unavailable [phone] StarksAnt goldman MD Unavailable [phone] Reason for Visit * Reason Onset Date Comments Follow-up 02/27/2022 Encounter Details Date Type Department Care Team (Late st Contact Info) Description 02/27/2022 Telephone [facility] Oncology [address] [facility] 7th [place] [address] [place] [address] Bonnie Lara, BECKI Follow-up Social [...] on file 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 Montejo recommended for him. Pt has no showed for multiple visits and has not returned several calls regarding scheduling followup. Scheduling request placed for Reclast tomorrow @ [facility] 7 and message sent to treatment [...] Primary documented in this encounter Care Teams Patient Portal Representative Relationship Specialty Start Date End Date Kirt Lindsay DO PCP - General Internal Medicine 02/02/21 Josué Del Valle MD PhD Medical Oncologist/Banking And Finance Instructor Medical Oncology 08/26/19 Tay Charlton MD Consulting Physician Gastroenterology 12/03/21 06/11/23 Halie Khan MD [address] [place] [address] Consulting Physician Pulmonary Disease 12/12/21 3 Ant Starks MD [address] [facility] [address] [facility] [address] [place] [address] Consulting Physician Transplant Hepatology 01/12/22 documented as of this encounter
--- OUTSIDE RECORDS SUMMARY | 2024-11-22 12:57 | XMS_ITS | Encounter Summary ---
Author Organization [facility] Address [address] [place] [address] Phone Care Team Providers Care Dictaphone Transcriber Name Role Phone Josué Del Valle MD PhD Unavailable [phone] Kirt Lindsay DO Primary Care Provider [phone] Tay Charlton MD Unavailable [phone] Halie Khan MD Unavailable [phone] StarksAnt goldman MD Unavailable [phone] Encounter Details Date Type Department Care Team (Late st Contact Info) Description 02/28/2022 Orders Only [facility] Oncology [address] [facility] 7th [place] [address] [place] [address] Snow Rogers RPh Social History Tobacco Use [...] file 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 Gender Identity Not on file Sexual Orientation Not on file documented as of this encounter Plan of Treatment Not on file documented as of this encounter Visit Diagnoses Not on filedocumented in this encounter Care Teams Dictaphone Transcriber Relationship Specialty Start Date End Date Kirt Lindsay DO PCP - General Internal Medicine 02/02/21 Josué Del Valle MD PhD Medical Oncologist/Element Winding Machine Tender Medical Oncology 08/26/19 Tay Charlton MD Consulting Physician Gastroenterology 12/03/21 06/11/23 Halie Khan MD [address] [address] Consulting Physician Pulmonary Disease 12/12/21 3 Ant Starks MD [address] [address] Consulting Physician Transplant Hepatology 01/12/22 documented as of this encounter
--- OUTSIDE RECORDS SUMMARY | 2024-11-22 12:58 | XMS_ITS | Encounter Summary ---
Author Organization [facility] Address [address] [place] [address] Phone Care Team Providers Care Marketing Intern Name Role Phone Josué Del Valle MD PhD Unavailable [phone] Kirt Lindsay DO Primary Care Provider [phone] Tay Charlton MD Unavailable [phone] Halie Khan MD Unavailable [phone] StarksAnt goldman MD Unavailable [phone] Encounter Details Date Type Department Care Team (Late st Contact Info) Description 01/18/2022 Telephone [facility] Bone Marrow Transplant [address] [facility] 7th Floor, [place] [address] Josué Del Valle MD PhD [address] DIV BONE MARROW TRANSPLANT[address] [place] [address] Social History Tobacco Use Types [...] on file Legal Sex Male 10:48 AM ASSOCIATION EXECUTIVE Gender Identity Not on file Sexual Orientation Not on file documented as of this encounter Miscellaneous Notes * Telephone Encounter - Marisa Mcdermott - 01/18/2022 2:17 PM CST [facility] calling for refill for patient's Proair CIATION EXECUTIVE documented in this encounter Plan of Treatment Not on file documented as of this encounter Visit Diagnoses Not on filedocumented in this encounter Care Teams Marketing Intern Relationship Specialty Start Date End Date Kirt Lindsay DO PCP - General Internal Medicine 02/02/21 Josué Del Valle MD PhD Medical Oncologist/Press Reader Medical Oncology 08/26/19 Tay Charlton MD Consulting Physician Gastroenterology 12/03/21 06/11/23 Halie Khan MD [address] [address] Consulting Physician Pulmonary Disease 12/12/21 3 Ant Starks MD [address] [address] Consulting Physician Transplant Hepatology 01/12/22 documented as of this encounter
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
--- OUTSIDE RECORDS SUMMARY | 2024-11-22 12:58 | XMS_ITS | Encounter Summary ---
Author Organization [facility] Healthcare Address [address] [place] [address] Care Team Providers Care Splicer Apprentice Name Role Phone Josué Del Valle MD PhD Unavailable [phone] Kirt Lindsay DO Primary Care Provider [phone] Tay Charlton MD Unavailable [phone] Halie Khan MD Unavailable [phone] StarksAnt goldman MD Unavailable [phone] Encounter Details Date Type Department Care Team (Latest Contact Info) Description 02/11/2022 8:23 PM CDT - 02/11/2022 10:49 PM CDT Hospital Encounter [facility] Radiology [address] [place] [address] Discharge Disposition: Discharge to home or self [...] on file Legal Sex Male 10:48 AM ALLOPATHIC DOCTOR Gender Identity Not on file Sexual Orientation [...] (acute myeloid leukemia) in remission ([facility]) TAKE 1 TABLET(400 MG) BY MOUTH EVERY 8 HOURS 270 tablet 1 2 06/11/20 22 albuterol HFA (PROVENTIL HFA,VENTOLIN HFA,PROAIR HFA) 90 mcg/actuation inhalerIndications:Chron ic Obstructive Pulmonary Disease Inhale 2 puffs every 4 (four) hours as needed for wheezing 3 each 3 2 02/17/20 22 atorvastatin (LIPITOR) 40 mg tabletIndications:AML (acute myeloid leukemia) in remission ([facility]),Type 2 diabetes mellitus with hyperglycemia, with long-term current use of insulin ([facility]),Ywlyf-crmvvo-mgsd disease ([facility]),H/O allogeneic bone marrow transplant ([facility]),Pure hypercholesterolemia Take 1 tablet (40 mg total) by mouth daily 30 tablet 6 0 07/30/20 24 blood-glucose meter miscIndications:Type 2 diabetes mellitus with hyperosmolarity without coma, with long-term current use of insulin ([facility]) 1 Device 3 (three) times a day [...] (acute myeloid leukemia) in remission ([facility]),H/O allogeneic bone marrow transplant ([facility]),Vitamin D deficiency TAKE 1 CAPSULE BY MOUTH ONCE A WEEK DIRECTED 12 capsule 3 1 02/20/20 24 furosemide (LASIX) 20 mg tabletIndications:Type 2 diabetes mellitus with hyperosmolarity without coma, with long-term current use of insulin ([facility]) Take 1 tablet (20 mg total) by mouth daily As needed. 30 tablet 0 02/20/20 24 gabapentin (NEURONTIN) 300 mg capsuleIndications:Type 2 diabetes mellitus with hyperosmolarity without coma, with long-term current use of insulin ([facility]) Take 1 capsule (300 mg total) by [...] long-term current use of insulin ([facility]) INJECT 15 UNITS NIGHTLY SUB-Q. 1 pen 5 1 02/20/20 24 insulin lispro (HumaLOG, ADMELOG) 100 unit/mL pen for injectionIndications:Typ e 2 diabetes mellitus with hyperosmolarity without coma, with long-term current use of insulin ([facility]) INJECT 5-10 UNITS TID WITH MEALS PLUS [...] mg tabletIndications:AML (acute myeloid leukemia) in remission (HCC),Bpauv-dyesgk-uvzy disease (HCC) TAKE 1 TABLET BY MOUTH EVERY DAY 90 tablet 2 03/26/20 22 mycophenolate mofetil (CELLCEPT) 500 mg tabletIndications:AML (acute myeloid leukemia) in remission (HCC),Umqsl-dghapm-elix disease (HCC) TAKE 2 TABLETS(1000 MG) BY [...] mcg inhalerIndications:AML (acute myeloid leukemia) in remission (HCC),Jwaou-pdnlpu-ibqk disease (HCC),H/O allogeneic bone marrow transplant (HCC) [...] on filedocumented in this encounter Care Teams Splicer Apprentice Relationship Specialty Start Date End Date Kirt Lindsay DO PCP - General Internal Medicine 02/02/21 Josué Del Valle MD PhD Medical Oncologist/Resort Keeper Medical Oncology 08/26/19 Tay Charlton MD Consulting Physician Gastroenterology 12/03/21 06/11/23 Halie Khan MD [address] [address] Consulting Physician Pulmonary Disease 12/12/21 3 Ant Starks MD [address] [address] Consulting Physician Transplant Hepatology 01/12/22 documented as of this encounter
--- OUTSIDE RECORDS SUMMARY | 2024-11-22 12:58 | XMS_ITS | Encounter Summary ---
Author Organization [facility] Address [address] [place] [address] Phone Care Team Providers Care Emergency Department Technician Name Role Phone Josué Del Valle MD PhD Unavailable [phone] Kirt Lindsay DO Primary Care Provider [phone] Tay Charlton MD Unavailable [phone] Halie Khan MD Unavailable [phone] Encounter Details Date Type Department Care Team (Late st Contact Info) Description 01/04/2022 Telephone 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 Pt to hold Xarerlto 48 hours preoperatively. He is to resume 72 hours postoperatively. Pt verbalized understanding. T REPAIRER T REPAIRER documented in this encounter Plan of Treatment Not on file documented as of this encounter Visit Diagnoses Not on filedocumented in this encounter Care Teams Emergency Department Technician Relationship Specialty Start Date End Date Kirt Lindsay DO PCP - General Internal Medicine 02/02/21 Josué Del Valle MD PhD Medical Oncologist/Asphalt Paving Machine Operator Medical Oncology 08/26/19 Tay Charlton MD Consulting Physician Gastroenterology 12/03/21 06/11/23 Halie Khan MD [address] [address] Consulting Physician Pulmonary Disease 12/12/21 3 documented as of this encounter
--- OUTSIDE RECORDS SUMMARY | 2024-11-22 12:58 | XMS_ITS | Encounter Summary ---
Author Organization [facility] Address [address] [place] [address] Phone Care Team Providers Care Edger Machine Operator Name Role Phone Josué Del Valle MD PhD Unavailable Kirt Lindsay DO Primary Care Provider [phone] Tay Charlton MD Unavailable [phone] Halie Khan MD Unavailable [phone] Encounter Details Date Type Department Care Team (Late st Contact Info) Description 12/18/2021 Telephone [facility] Bone Marrow Transplant [address] [facility] Advanced Medicine 7th Floor, [place] [address] Josué Del Valle MD PhD [address] DIV IM BONE MARROW TRANSPLANT, [address] [place] [address] Social History Tobacco Use Types [...] file 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 Starks's office states she faxed over anticoagulation clearance on Brady and she wanted to be sure we received it. Delmy [phone] RETTE PAPER TESTER documented in this encounter Plan of Treatment Not on file documented as of this encounter Visit Diagnoses Not on filedocumented in this encounter Care Teams Edger Machine Operator Relationship Specialty Start Date End Date Kirt Lindsay DO PCP - General Internal Medicine 02/02/21 Josué Del Valle MD PhD Medical Oncologist/Safety Deposit Supervisor Medical Oncology 08/26/19 Tay Charlton MD Consulting Physician Gastroenterology 12/03/21 06/11/23 Halie Khan MD [address] [facility] [address] [place] [address] Consulting Physician Pulmonary Disease 12/12/21 3 documented as of this encounter
--- OUTSIDE RECORDS SUMMARY | 2024-11-22 12:58 | XMS_ITS | Encounter Summary ---
Author Organization [facility] Address [address] [place] [address] Phone Care Team Providers Care Marble Machine Tender Name Role Phone Josué Del Valle MD PhD Unavailable [phone] Kirt Lindsay DO Primary Care Provider [phone] Tay Charlton MD Unavailable [phone] Halie Khan MD Unavailable [phone] StarksAnt goldman MD Unavailable [phone] Encounter Details Date Type Department Care Team (Late st Contact Info) Description 02/02/2022 Telephone [facility] Surgery [address] [facility] Floor 1 [place] [address] Delmy Medeiros, BECKI Social History [...] file 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 Gender Identity Not on file Sexual [...] on filedocumented in this encounter Care Teams Marble Machine Tender Relationship Specialty Start Date End Date Kirt Lindsay DO PCP - General Internal Medicine 02/02/21 Josué Del Valle MD PhD Medical Oncologist/Supervisor Prep Medical Oncology 08/26/19 Tay Charlton MD Consulting Physician Gastroenterology 12/03/21 06/11/23 Halie Khan MD [address] [place] [address] Consulting Physician Pulmonary Disease 12/12/21 3 Ant Starks MD [address] [place] [address] Consulting Physician Transplant Hepatology 01/12/22 documented as of this encounter
--- OUTSIDE RECORDS SUMMARY | 2024-11-22 12:58 | XMS_ITS | Encounter Summary ---
Author Organization [facility] Address [address] [place] [address] Phone Care Team Providers Care Billing Department Supervisor Name Role Phone Josué Del Valle MD PhD Unavailable Kirt Lindsay DO Primary Care Provider [phone] Tay Charlton MD Unavailable [phone] Halie Khan MD Unavailable [phone] StarksAnt goldman MD Unavailable [phone] Encounter Details Date Type Department Care Team (Late st Contact Info) Description 02/16/2022 Orders Only [facility] Bone Marrow Transplant [address] [facility] Advanced Medicine 7th Floor, [place] [address] Josué Del Valle MD PhD [address] DIV IM BONE MARROW TRANSPLANT, [address] [place] [address] AML (acute myeloid leukemia) in [...] on file 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 Gender Identity Not on file Sexual Orientation [...] documented as of this encounter Care Teams Billing Department Supervisor Relationship Specialty Start Date End Date Kirt Lindsay DO PCP - General Internal Medicine 02/02/21 Josué Del Valle MD PhD Medical Oncologist/Electric Scoop Operator Medical Oncology 08/26/19 Tay Charlton MD Consulting Physician Gastroenterology 12/03/21 06/11/23 Halie Khan MD [address] [place] [address] Consulting Physician Pulmonary Disease 12/12/21 3 Ant Starks MD [address] [facility] [address] [facility] [address] [place] [address] Consulting Physician Transplant Hepatology 01/12/22 documented as of this encounter
--- OUTSIDE RECORDS SUMMARY | 2024-11-22 12:58 | XMS_ITS | Encounter Summary ---
Author Organization [facility] Address [address] [place] [address] Phone Care Team Providers Care Editor Greeting Card Name Role Phone Josué Del Valle MD PhD Unavailable [phone] Kirt Lindsay DO Primary Care Provider [phone] Tay Charlton MD Unavailable [phone] Halie Khan MD Unavailable [phone] Ant Starks MD Unavailable [phone] Encounter Details Date Type Department Care Team (Late st Contact Info) Description 02/15/2022 Orders Only [facility] Bone Marrow Transplant [address] [facility] 7th Floor, [place] [address] Anaid Polanco RN H/O allogeneic [...] file 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 Gender Identity Not on file Sexual Orientation Not on file documented as of this encounter Plan of Treatment Not on file documented as of this encounter Visit Diagnoses Diagnosis 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) documented in this encounter Care Teams Editor Greeting Card Relationship Specialty Start Date End Date Kirt Lindsay DO PCP - General Internal Medicine 02/02/21 Josué Del Valle MD PhD Medical Oncologist/Anesthesiology Tech Medical Oncology 08/26/19 Tay Charlton MD Consulting Physician Gastroenterology 12/03/21 06/11/23 Halie Khan MD [address] [facility] [address] [place] [address] Consulting Physician Pulmonary Disease 12/12/21 3 Ant Starks MD [address] [address] Consulting Physician Transplant Hepatology 01/12/22 documented as of this encounter
--- OUTSIDE RECORDS SUMMARY | 2024-11-22 12:58 | XMS_ITS | Encounter Summary ---
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 CBC data. Current Interpretive Data was last revised on 2018. Monocyte pct 4.4 % [facility] Comment: Interpretive Data Percent cell count reference ranges are not reported, since discordance with absolute values may lead to misinterpretation of CBC data. Current Interpretive Data was last revised on 2018. Variant lymph pct 0.9 % [facility] RBC morphology Present(A) [facility] Anisocytosis Moderate(A) [facility] Poikilocytosis Slight(A) [facility] Macrocytes 8-15/HPF(A) [facility] Acanthocytes 3-7/HPF(A) [facility] Platelet estimate Adequate [facility] Blood 02/13/2022 12:4 7 AM CDT 02/13/2022 1:06 AM CDT [facility] Jacky Barahona MD LAB BLOOD ORDERA BLES Edited Result - Final Performing Organization Address City/[facility]/ZIP Co de Phone Number [facility] Department [place] [address] * (ABNORMAL) CBC without differential (02/13/2022 12:47 AM CDT) WBC 16.4(H) 3.8 - 9.9 K/cumm [facility] Hgb 11.5(L) 13.0 - 17.5 g/dL [facility] Hct 32.4(L) 38.9 - 50.3 % [facility] Plt 331 150 - 400 K/cumm [facility] MPV 10.0 9.1 - 12.3 fL [facility] RBC 3.28(L) 4.30 - 5.80 M/cumm [facility] MCV 98.8(H) 81.3 - 96.4 fL [facility] MCH 35.1(H) 27.1 - 33.3 pg [facility] MCHC 35.5 32.3 - 35.7 g/dL [facility] RDW CV 13.2 11.1 - 14.9 % [facility] RDW SD 48.0 35.7 - 48.1 fL [facility] NRBC abs 0.00 0.00 - 0.01 K/cumm [facility] Blood 02/13/2022 12:4 7 AM CDT 02/13/2022 1:06 AM CDT Moody Barahona MD LAB BLOOD ORDERA BLES Final Result Performing Organization Address City/[facility]/ZIP Co de Phone Number [facility] Department [place] [address] * Type and screen (02/13/2022 12:47 AM CDT) Pathologist [facility] Ursula, indirect Negative [facility] ABO Rh A Positive [facility] Blood 02/13/2022 12:4 7 AM CDT 02/13/2022 1:28 AM CDT Narrative [facility] - 02/13/2022 2:24 AM CDT Has the patient had Daratumumab or Isatuximab in the past 6 months?->Unknown Moody Barahona MD LAB BLOOD BANK T EST ORDERABLES Final Result [facility] [place] [address] * (ABNORMAL) Basic metabolic panel (02/13/2022 12:47 AM CDT) [facility] Sodium 137 135 - 145 mmol/L [facility] Potassium, pl 4.5 3.3 - 4.9 mmol/L [facility] Comment:Hemolyzed; Potassium value may be falsely elevated by as much as 0.3-0.5 mmol/L. Suggest redraw and reanalysis. Chloride 102 97 - 110 mmol/L [facility] CO2 29 22 - 32 mmol/L [facility] Anion gap 6 2 - 15 mmol/L [facility] BUN 18 8 - 25 mg/dL [facility] Creatinine 0.89 0.80 - 1.30 mg/dL [facility] Glucose 280(H) 70 - 199 mg/dL [facility] Comment: [...] 2017. Calcium 9.0 8.5 - 10.3 mg/dL [facility] Blood 02/13/2022 12:4 7 AM CDT 02/13/2022 1:00 AM CDT Narrative [facility] - 02/13/2022 1:51 AM CDT Daily except Saturday and . Morning draw. Moody Barahona MD LAB BLOOD ORDERA BLES Final Result Performing Organization Address City/[facility]/ZIP Co de Phone Number [facility] Department [place] [address] * (ABNORMAL) Phosphorus (02/13/2022 12:47 AM CDT) Phosphorus, pl 2.1(L) 2.3 - 4.5 mg/dL [facility] Blood 02/13/2022 12:4 7 AM CDT 02/13/2022 1:00 AM CDT Moody Barahona MD LAB BLOOD ORDERA BLES Final Result Performing Organization Address City/[facility] Co de Phone Number [facility] Department [place] [address] * Magnesium (02/13/2022 12:47 AM CDT) Magnesium 1.6 1.4 - 2.5 mg/dL [facility] Blood 02/13/2022 12:4 7 AM CDT 02/13/2022 1:00 AM CDT us Moody Barahona MD LAB BLOOD ORDERA BLES Final Result Performing Organization Address City/[facility] Co de Phone Number [facility] Department [place] [address] * (ABNORMAL) POCT glucose (02/12/2022 8:26 PM CDT) Glucose, POC 321(H) 70 - 199 mg/dL [facility] Blood 02/12/2022 8:26 PM CDT 02/12/2022 8:26 PM CDT us Uyen Gleason MD LAB POCT ORDERABLE S - DEVICE Final Result Performing Organization Address City/[facility]/ZIP Co de Phone Number [facility] [place] [address] * (ABNORMAL) POCT glucose (02/12/2022 4:59 PM CDT) Glucose, POC 279(H) 70 - 199 mg/dL [facility] Blood 02/12/2022 4:59 PM CDT 02/12/2022 4:59 PM CDT Uyen Gleason MD LAB POCT ORDERABLE S - DEVICE Final Result Performing Organization Address City/[facility] Co de Phone Number [facility] Department [place] [address] * (ABNORMAL) POCT glucose (02/12/2022 11:58 AM CDT) Glucose, POC 283(H) 70 - 199 mg/dL [facility] Glucose comment 1 Glu2: RN/MD Notified [facility] Blood 02/12/2022 11:5 8 AM CDT 02/12/2022 11:58 AM CDT us Uyen Gleason MD LAB POCT ORDERABLE S - DEVICE Final Result Performing Organization Address City/[facility]/ZIP Co de Phone Number [facility] Department [place] [address] * Tacrolimus level trough (02/12/2022 9:01 AM CDT) Tacrolimus trough 1.0 ng/mL [facility] Comment: Interpretive Data Testing performed by liquid chromatography-tandem mass spectrometry. ??Therapeutic concentrations vary depending on type of transplanted organ and time elapsed since transplant. ??Typical trough concentrations range from 5-15 ng/mL. ??This test was developed and its performance characteristics determined by the [facility] consistent with CLIA requirements. ??This test has not been cleared or approved by the [place] Food and Drug administration. ??Current interpretive data last reviewed 2020. Blood 02/12/2022 9:01 AM CDT 02/12/2022 9:21 AM CDT Sarbjit Guy MD LAB BLOOD ORDERABL ES Final Result Performing Organization Address [facility] de Phone Number [facility] Department [place] [address] * (ABNORMAL) Voriconazole, serum (02/12/2022 9:01 AM CDT) Voriconazole, trough <0.1(L) 1.0 - 5.5 mcg/mL [facility] Comment: Repeated and verified. This test was developed and its performance characteristics determined by [facility] in a manner consistent with CLIA requirements. ??This test has not been cleared or approved by the U.S. Food and Drug Administration. Testing performed by: [facility], [facility], [place]., [address] Blood 02/12/2022 9:01 AM CDT 02/12/2022 9:33 AM CDT us Sarbjit Guy MD LAB BLOOD ORDERABL ES Final Result Performing Organization Address [facility] Co de Phone Number [facility] [place] [address] * (ABNORMAL) POCT glucose (02/12/2022 8:48 AM CDT) Glucose, POC 342(H) 70 - 199 mg/dL [facility] Blood 02/12/2022 8:48 AM CDT 02/12/2022 8:48 AM CDT Uyen Gleason MD LAB POCT ORDERABLE S - DEVICE Final Result [facility] Department [place] [address] * Lipid panel (02/12/2022 6:42 AM CDT) Pathologist [facility] Cholesterol 142 30 - 199 mg/dL [facility] [...] on 2018. HDL 44 >=40 mg/dL [facility] Comment: Interpretive Data Ages < or [...] 2018. LDL, calculated 79 <=129 mg/dL [facility] Comment: Interpretive Data Ages < or [...] revised on 2018. Non-HDL Cholesterol 98 mg/dL [facility] Comment: Interpretive Data Ages < or = [...] last revised on 2018. Chol/HDL ratio 3 [facility] Blood 02/12/2022 6:42 AM CDT 02/12/2022 6:57 AM CDT us Uyen Gleason MD LAB BLOOD ORDERABL ES Final Result [facility] Department [place] [address] * (ABNORMAL) Hemoglobin A1c (02/12/2022 6:42 AM CDT) Hgb A1C 8.5(H) 4.0 - 5.6 % [facility] Estimated Average Glucose 197 mg/dL [facility] Comment: The ADA recommends [...] ORDERABL ES Final Result Performing Organization Address [facility]/ZIP Co de Phone [facility] [place] [address] * eGFR (02/12/2022 6:42 AM CDT) eGFR >90 90 - 130 mL/min/1. 73 m2 [facility] Comment: Interpretive Data Reference Interval Normal ?>/= [...] ORDERA BLES Final Result Performing Organization Address City/[facility]/ZIP Co de Phone Number [facility] Department [place] [address] * (ABNORMAL) Manual Differential (02/12/2022 6:42 AM CDT) Differential Manual [facility] Cells Counted 115 [facility] Neutrophil abs 11.9(H) 1.7 - 6.5 K/cumm [facility] Imm gran abs 0.0 0.0 - 0.1 K/cumm [facility] Lymphocyte abs 0.5(L) 0.8 - 3.3 K/cumm [facility] Monocyte abs 0.0(L) 0.2 - 0.8 K/cumm [facility] Neutrophil pct 95.7 % [facility] Comment: Interpretive Data Percent cell count reference ranges are not reported, since discordance with absolute values may lead to misinterpretation of CBC data. Current Interpretive Data was last revised on 2018. Lymphocyte pct 4.3 % [facility] Comment: Interpretive Data Percent cell count reference ranges are not reported, since discordance with absolute values may lead to misinterpretation of CBC data. Current Interpretive Data was last revised on 2018. RBC morphology Present(A) [facility] Anisocytosis Marked(A) [facility] Macrocytes > 15/HPF(A) [facility] Platelet estimate Adequate [facility] Blood 02/12/2022 6:42 AM CDT 02/12/2022 6:57 AM CDT [facility] Floyd Barahona MD LAB BLOOD ORDERA BLES Edited Result - Final [facility] Department [place] [address] * (ABNORMAL) CBC without differential (02/12/2022 6:42 AM CDT) WBC 12.4(H) 3.8 - 9.9 K/cumm [facility] Hgb 13.5 13.0 - 17.5 g/dL [facility] Hct 40.1 38.9 - 50.3 % [facility] Plt 333 150 - 400 K/cumm [facility] MPV 10.2 9.1 - 12.3 fL [facility] RBC 3.92(L) 4.30 - 5.80 M/cumm [facility] MCV 102.3(H) 81.3 - 96.4 fL [facility] MCH 34.4(H) 27.1 - 33.3 pg [facility] MCHC 33.7 32.3 - 35.7 g/dL [facility] RDW CV 13.8 11.1 - 14.9 % [facility] RDW SD 51.8(H) 35.7 - 48.1 fL [facility] NRBC abs 0.00 0.00 - 0.01 K/cumm [facility] Blood 02/12/2022 6:42 AM CDT 02/12/2022 6:57 AM CDT [facility] LAB BLOOD ORDERA BLES Final Result Performing Organization Address [facility] de Phone Number [facility] Department [place] [address] * Tacrolimus level random (02/12/2022 6:42 AM CDT) Pathologist [facility] Tacrolimus random 1.2 ng/mL [facility] Comment: Interpretive Data Testing performed by liquid chromatography-tandem mass spectrometry. ??Therapeutic concentrations vary depending on type of transplanted organ and time elapsed since transplant. ??Typical trough concentrations range from 5-15 ng/mL. ??This test was developed and its performance characteristics determined by the [facility] consistent with CLIA requirements. ??This test has not been cleared or approved by the US Food and Drug administration. ??Current interpretive data last reviewed 2020. Blood 02/12/2022 6:42 AM CDT 02/12/2022 6:57 AM CDT [facility] LAB BLOOD ORDERA BLES Final Result Performing Organization Address [facility]/ZIP Co de Phone Number [facility] Department [place] [address] * (ABNORMAL) Fibrinogen (02/12/2022 6:42 AM CDT) Fibrinogen 939(H) 170 - 400 mg/dL [facility] Blood 02/12/2022 6:42 AM CDT 02/12/2022 7:00 AM CDT Moody Barahona MD LAB BLOOD ORDERA BLES Final Result Performing Organization Address [facility] [place] [address] * Type and screen (02/12/2022 6:42 AM CDT) Ursula, indirect Negative [facility] ABO Rh A Positive [facility] Blood 02/12/2022 6:42 AM CDT 02/12/2022 7:11 AM CDT Narrative [facility] - 02/12/2022 8:05 AM CDT Has the patient had Daratumumab or Isatuximab in the past 6 months?->Unknown Moody Barahona MD LAB BLOOD BANK T EST ORDERABLES Final Result Performing Organization Address [facility] Co de Phone Number [facility] [place] [address] * aPTT (02/12/2022 6:42 AM CDT) aPTT 34 27 - 37 sec [facility] Comment: Interpretive Data Therapeutic heparin range: 60.0 - 94.0 seconds. Based on correlation with therapeutic heparin activity range of 0.3-0.7 Units/mL. Current interpretive data was last revised on 2021. Blood 02/12/2022 6:42 AM CDT 02/12/2022 7:00 AM CDT Moody Barahona MD LAB BLOOD ORDERA BLES Final Result Performing Organization Address City/[facility] Co de Phone Number [facility] [place] [address] * Protime-INR (02/12/2022 6:42 AM CDT) PT 12.2 9.5 - 13.6 sec [facility] INR 1.1 0.9 - 1.2 [facility] Comment: Interpretive data Oral anticoagulant [...] ORDERA BLES Final Result Performing Organization Address [facility] Co de Phone Number [facility] [place] [address] * Uric acid (02/12/2022 6:42 AM CDT) Uric acid 5.2 3.0 - 8.0 mg/dL [facility] Blood 02/12/2022 6:42 AM CDT 02/12/2022 6:57 AM CDT Moody Barahona MD LAB BLOOD ORDERA BLES Final Result Performing Organization Address [facility] Co de Phone Number [facility] Department [place] [address] * (ABNORMAL) Lactate dehydrogenase (LD) (02/12/2022 6:42 AM CDT) Lactate dehydrogenase (LDH) 303(H) 100 - 250 Units/L [facility] Blood 02/12/2022 6:42 AM CDT 02/12/2022 6:57 AM CDT Moody Barahona MD LAB BLOOD ORDERA BLES Final Result [facility] Department [place] [address] * Phosphorus (02/12/2022 6:42 AM CDT) Pathologist [facility] Phosphorus, pl 3.4 2.3 - 4.5 mg/dL [facility] Blood 02/12/2022 6:42 AM CDT 02/12/2022 6:57 AM CDT Moody Barahona MD LAB BLOOD ORDERA BLES Final Result Performing Organization Address City/[facility]/ZIP Co de Phone Number [facility] [place] [address] * Magnesium (02/12/2022 6:42 AM CDT) Pathologist [facility] Magnesium 1.5 1.4 - 2.5 mg/dL [facility] Blood 02/12/2022 6:42 AM CDT 02/12/2022 6:57 AM CDT Moody Barahona MD LAB BLOOD ORDERA BLES Final Result [facility] Department [place] [address] * (ABNORMAL) Comprehensive metabolic panel (02/12/2022 6:42 AM CDT) Sodium 134(L) 135 - 145 mmol/L [facility] Potassium, pl 4.7 3.3 - 4.9 mmol/L [facility] Chloride 96(L) 97 - 110 mmol/L [facility] CO2 24 22 - 32 mmol/L [facility] Anion gap 14 2 - 15 mmol/L [facility] BUN 10 8 - 25 mg/dL [facility] Creatinine 0.70(L) 0.80 - 1.30 mg/dL [facility] Glucose 257(H) 70 - 199 mg/dL [facility] Comment: [...] 2017. Calcium 9.1 8.5 - 10.3 mg/dL [facility] Bilirubin, total 0.4 0.1 - 1.2 mg/dL [facility] Protein, pl 8.0 6.5 - 8.5 g/dL [facility] Albumin 3.5 3.5 - 5.0 g/dL [facility] Alk phos 288(H) 40 - 130 Units/L [facility] ALT 32 7 - 55 Units/L [facility] AST 41 10 - 50 Units/L [facility] Blood 02/12/2022 6:42 AM CDT 02/12/2022 6:57 AM CDT Moody Barahona MD LAB BLOOD ORDERA BLES Final Result [facility] Department [place] [address] * X-ray chest 1 view (Portable) (02/12/2022 [...] AM CDT) Ventricular Rate EKG/Min 53 BPM [facility] Atrial Rate 53 BPM [facility] DC-Interval (MSEC) 136 ms [facility] QRS-Interval (MSEC) 92 ms [facility] QT-Interval (MSEC) 458 ms [facility] QTc 429 ms [facility] P [place] 56 degrees [facility] R [place] 79 degrees [facility] T [place] 81 degrees [facility] Diagnosis Sinus bradycardia Anterior infarct , age undetermined Abnormal ECG Confirmed by NGOZI MILES M.D ([id number]) on 02/12/2022 1:37:14 PM [facility] 02/12/2022 5:48 AM CDT 02/12/2022 1:37 PM CDT Moody Barahona MD ECG ORDERABLES Final Result Performing Organization Address [facility] Co de Phone Number [facility] * POCT glucose (02/12/2022 4:17 AM CDT) Glucose, POC 136 70 - 199 mg/dL [facility] Blood 02/12/2022 4:17 AM CDT 02/12/2022 4:17 AM CDT Uyen Gleason MD LAB POCT ORDERABLE S - DEVICE Final Result Performing Organization Address [facility] de Phone Number [facility] [place] [address] * Troponin I high-sensitivity 6-hour (02/12/2022 2:08 AM CDT) Trop I hs <4 <=35 ng/L [facility] Comment: Interpretive Data For further hscTnI resources including the diagnostic algorithm and an aid in interpretation, copy and paste this link: https://bjhlab.testcatalog.org/show/[email or web address] Current Interpretive Data last revised 2020. Trop I hs delta 0 ng/L [facility] Trop I hs interp Insignificant [facility] Blood 02/12/2022 2:08 AM CDT 02/12/2022 2:28 AM CDT Kirt Vann MD LAB BLOOD ORDERABLES Final Resul t Performing Organization Address [facility] Co de Phone Number [facility] [place] [address] * CT Chest PE (CTA) W Contrast [...] high-sensitivity 4-hour (02/11/2022 11:58 PM CDT) Pathologist [facility] Trop I hs <4 <=35 ng/L [facility] Comment: Interpretive Data For further hscTnI resources including the diagnostic algorithm and an aid in interpretation, copy and paste this link: https://bjhlab.testcatalog.org/show/hsTrop-[email or web address] Current Interpretive Data last revised 2020. Trop I hs delta 0 ng/L [facility] Trop I hs interp Insignificant [facility] Blood 02/11/2022 11:5 8 PM CDT 02/12/2022 12:05 AM CDT Kirt Vann MD LAB BLOOD ORDERABLES Final Resul t [facility] Department [place] [address] * Influenza A/B, RSV, and COVID-19 PCR Nasopharyngeal (02/11/2022 11:41 PM CDT) [facility] COVID-19 RNA Negative Negative [facility] Influenza A RNA Negative Negative [facility] Influenza B RNA Negative Negative [facility] RSV RNA Negative Negative [facility] Comment: Interpretive data: Testing performed by [facility] ([phone]). This test is performed using the [employer] Xpert Xpress CoV-2/Flu/RSV plus assay. This is a multiplex, real-time reverse transcriptase PCR assay intended for the qualitative detection of nucleic acid from SARS-CoV-2, influenza A, influenza B, and respiratory syncytial virus. This assay has been reviewed by the FDA for Emergency Use Authorization (EUA). The performance characteristics have been verified by the [facility]. Results must be considered in the clinical context, and a negative result does not rule out infection. Interpretive Data last revised 2021. First COVID-19 test? [address] [facility] Employeed in healthcare? No [facility] Group care resident? No [facility] Hospitalized? No [facility] Is patient in ICU? No [facility] Symptomatic as defined by CDC? No [facility] Nasopharyngeal 02/11/2022 11 :41 PM CDT 02/12/2022 12:02 AM CDT Narrative [facility] - 02/12/2022 12:46 AM CDT Reason for testing?->Bed placement or semi-private room Known exposure to confirmed or suspected COVID-19 case?->No [facility] Atkins MD LAB MICROBIOLOGY - GE NERAL ORDERABLES Final Result [facility] Department [place] [address] * POCT glucose (02/11/2022 10:37 PM CDT) Glucose, POC 118 70 - 199 mg/dL [facility] Blood 02/11/2022 10:3 7 PM CDT 02/11/2022 10:37 PM CDT Result [facility] Notinfile Unknown LAB POCT ORDERABLES - DEVICE F inal Result Performing Organization Address [facility]/ZIP Co de Phone Number [facility] Department [place] [address] * Troponin I high-sensitivity 2-hour (02/11/2022 10:33 PM CDT) Trop I hs <4 <=35 ng/L [facility] Comment: Interpretive Data For further hscTnI resources including the diagnostic algorithm and an aid in interpretation, copy and paste this link: https://bjhlab.testcatalog.org/show/hsTrop-1 Current Interpretive Data last revised 2020. Trop I hs delta 0 ng/L [facility] Trop I hs interp Insignificant [facility] Blood 02/11/2022 10:3 3 PM CDT 02/11/2022 10:55 PM CDT us Kirt Vann MD LAB BLOOD ORDERABLES Final Resul t [facility] Department [place] [address] * XR Chest Pa Lateral 2 Views [...] PM CDT) NT-proBNP 455(H) <=300 pg/mL [facility] Comment: Interpretive Comments: A. Dyspnea in Acute [...] Unknown LAB BLOOD ORDERABLES Final Res ult [facility] [place] [address] * eGFR (02/11/2022 8:16 PM CDT) eGFR [...] MD LAB BLOOD ORDERABL ES Final Result [facility] [place] [address] * (ABNORMAL) Differential, auto (02/11/2022 8:16 PM CDT) Neutrophil abs 8.8(H) 1.7 - 6.5 K/cumm [facility] Imm gran abs 0.1 0.0 - 0.1 K[facility]cumm [facility] Lymphocyte abs 5.7(H) 0.8 - 3.3 K/cumm [facility] Monocyte abs 1.0(H) 0.2 - 0.8 K/cumm [facility] Eosinophil abs 0.3 0.0 - 0.5 K/cumm [facility] Basophil abs 0.1 0.0 - 0.1 K/cumm [facility] Neutrophil pct 55.3 % [facility] Comment: Confirmed by smear review Interpretive Data [...] revised on 2018. Lymphocyte pct 35.5 % [facility] Comment: Interpretive Data Percent cell count reference ranges are not reported, since discordance with absolute values may lead to misinterpretation of CBC data. Current Interpretive Data was last revised on 2018. Monocyte pct 6.2 % [facility] Comment: Interpretive Data Percent cell count reference ranges are not reported, since discordance with absolute values may lead to misinterpretation of CBC data. Current Interpretive Data was last revised on 2018. Eosinophil pct 2.0 % [facility] Comment: Interpretive Data Percent cell count reference ranges are not reported, since discordance with absolute values may lead to misinterpretation of CBC data. Current Interpretive Data was last revised on 2018. Basophil pct 0.6 % [facility] Comment: Interpretive Data Percent cell count reference ranges are not reported, since discordance with absolute values may lead to misinterpretation of CBC data. Current Interpretive Data was last revised on 2018. Blood 02/11/2022 8:16 PM CDT 02/11/2022 8:29 PM CDT Uyen Gleason MD LAB BLOOD ORDERABL ES Final Result Performing Organization Address [facility] de Phone Number [facility] [place] [address] * Troponin I high-sensitivity series (baseline, 2hr, 4hr, 6hr) (02/11/2022 8:16 PM CDT) Trop I hs <4 <=35 ng/L [facility] Comment: Interpretive Data For further hscTnI resources including the diagnostic algorithm and an aid in interpretation, copy and paste this link: https://bjhlab.testcatalog.org/show/hsTrop-1 Current Interpretive Data last revised 2020. Blood 02/11/2022 8:16 PM CDT 02/11/2022 8:30 PM CDT Uyen Gleason MD LAB BLOOD ORDERABL ES Final Result Performing Organization Address [facility] Co de Phone Number [facility] [place] [address] * (ABNORMAL) Comprehensive metabolic panel (02/11/2022 8:16 PM CDT) Sodium 137 135 - 145 mmol/L [facility] Potassium, pl 5.2(H) 3.3 - 4.9 mmol/L [facility] Chloride 101 97 - 110 mmol/L [facility] CO2 25 22 - 32 mmol/L [facility] Anion gap 11 2 - 15 mmol/L [facility] BUN 9 8 - 25 mg/dL [facility] Creatinine 0.84 0.80 - 1.30 mg/dL [facility] Glucose 123 70 - 199 mg/dL [facility] Comment: [...] 2017. Calcium 10.0 8.5 - 10.3 mg/dL [facility] Bilirubin, total 0.6 0.1 - 1.2 mg/dL [facility] Protein, pl 9.0(H) 6.5 - 8.5 g/dL [facility] Albumin 4.1 3.5 - 5.0 g/dL [facility] Alk phos 294(H) 40 - 130 Units/L [facility] ALT 33 7 - 55 Units/L [facility] AST 37 10 - 50 Units/L [facility] Blood 02/11/2022 8:16 PM CDT 02/11/2022 8:30 PM CDT us Uyen Gleason MD LAB BLOOD ORDERABL ES Final Result [facility] [place] [address] * (ABNORMAL) CBC with auto differential (02/11/2022 8:16 PM CDT) WBC 16.0(H) 3.8 - 9.9 K/cumm [facility] Hgb 15.4 13.0 - 17.5 g/dL [facility] Hct 45.7 38.9 - 50.3 % [facility] Plt 372 150 - 400 K/cumm [facility] MPV 10.1 9.1 - 12.3 fL [facility] RBC 4.47 4.30 - 5.80 M/cumm [facility] MCV 102.2(H) 81.3 - 96.4 fL [facility] MCH 34.5(H) 27.1 - 33.3 pg [facility] MCHC 33.7 32.3 - 35.7 g/dL [facility] RDW CV 13.6 11.1 - 14.9 % [facility] RDW SD 51.4(H) 35.7 - 48.1 fL [facility] NRBC abs 0.00 0.00 - 0.01 K/cumm [facility] Blood (Blood, Venous) 02/11/2022 8:16 PM CDT 02/11/2022 8:29 PM CDT us Uyen Gleason MD LAB BLOOD ORDERABL ES Final Result [facility] Department [place] [address] * ECG 12-LEAD (02/11/2022 7:20 PM CDT) [...] ORDERABLES Final Resu lt Performing Organization Address [facility]/ZIP Co de Phone Number [facility] * POCT glucose (02/11/2022 7:18 PM CDT) Glucose, POC 124 70 - 199 mg/dL [facility] Blood 02/11/2022 7:18 PM CDT 02/11/2022 7:18 PM CDT us Notinfile Unknown LAB POCT ORDERABLES - DEVICE F inal Result Performing Organization Address [facility] Co de Phone Number [facility] Department [place] [address] documented in this encounter Visit Diagnoses Diagnosis COPD exacerbation (HCC) Obstructive chronic bronchitis with exacerbation Hemoptysis Shortness of breath Pneumonia due to infectious organism, unspecified laterality, unspecified part of lung Type 2 diabetes mellitus with hyperosmolarity without coma, with long-term current use of insulin (HCC) 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) COPD exacerbation (HCC) Obstructive chronic bronchitis with exacerbation COPD with exacerbation ([facility]) ([facility]) Pure hypercholesterolemia Type 2 diabetes mellitus (HCC) DVT (deep venous thrombosis) ([facility]) (HCC) Acute venous embolism and thrombosis of unspecified deep vessels of lower extremity 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) Peripheral neuropathy Unspecified hereditary and [...] solution 10 mg 10 mg, nebulization, Once (correspondence clerk), On Sat02/11/22 at 2331, For 1 dose Given 02/11/2022 11:32 PM CDT 10 mg albuterol 2.5 mg/0.5 mL nebulizer solution 2.5 mg 2.5 mg, nebulization, Every 4 hours (correspondence clerk), First dose on Sat02/12/22 at 0148 Given 02/12/2022 2:09 AM CDT 2.5 mg albuterol 2.5 mg/0.5 mL nebulizer solution 2.5 mg 2.5 mg, nebulization, Every 4 hours PRN (correspondence clerk), wheezing, Starting on Sat02/12/22 at 0212 Given 02/13/2022 10:00 PM CDT 2.5 mg Given 02/13/2022 3:50 AM CDT 2.5 mg Given 02/12/2022 5:14 PM CDT 2.5 mg aluminum & magnesium roojgxnel-pmyvpgzcjmb-hfdhmgkrlxntgrm-lidocain e (MAGIC MOUTHWASH) suspension 1-1-1 15 mL, [...] Call MD for each episode of hypoglycemia. PATIENT SERVICES ASSISTANT STATES GLUTOSE-15 CONTAINS GLUCOSE 40% W/W (50% W/V), Indications: hypoglycemic disorderIndications:hypoglycemic disorder slgmgxvhhwy-jawnydsto-bbtfzhjx (TRELEGY ELLIPTA) 100-62.5-25 mcg inhaler 1 puff 1 puff, inhalation, Daily (correspondence clerk), First dose on Sat02/14/22 at 0830, Rinse [...] solution 0.5 mg 0.5 mg, nebulization, Once (correspondence clerk), On Sat02/11/22 at 2331, For 1 dose Given 02/11/2022 11:32 PM CDT 0.5 mg ipratropium (ATROVENT) 0.02 % nebulizer solution 0.5 mg 0.5 mg, nebulization, Every 4 hours PRN (correspondence clerk), wheezing, shortness of breath, Starting on Sat02/12/22 [...] mcg inhalerIndications:AML (acute myeloid leukemia) in remission (HCC),Mfvzm-omizck-tqdd disease (HCC),H/O allogeneic bone marrow transplant (HCC) [...] (CANCELED) 2.5 mg, nebulization, Every 4 hours (correspondence clerk), First dose on Sat02/12/22 at 0148 0209 (Given - Provider: Harsha Zepeda, REGISTER REPAIRER) atorvastatin (LIPITOR) tablet 40 mg 40 mg, [...] 0222 (Given - Provider: Sebastian Hernandez, BECKI) oulvfdntxig-phhzyvcmq-vgyy nter (TRELEGY ELLIPTA) 100-62.5-25 mcg inhaler 1 puff 1 puff, inhalation, Daily (correspondence clerk), First dose on Sat02/14/22 at 0830, Rinse mouth with water after use. Do not swallow. 1245 (Given - Provider: Clinton Gamble, REGISTER REPAIRER) gabapentin (NEURONTIN) capsule 300 mg 300 mg, [...] slide.) 0945 (Given - Provider: Xiomara Frazier, BECKI)1320 (Given - Provider: Xiomara Frazier, BECKI)1659 (Given [...] mg, nebulization, Every 4 hours PRN (correspondence clerk), wheezing, Starting on Sat02/12/22 at 0212 1714 (Given - Provider: Miguel Ángel Rodriguez, REGISTER REPAIRER) 0350 (Given - Provider: Sourav Najera, REGISTER REPAIRER)2200 (Given - Provider: Daria Phillips, REGISTER REPAIRER) aluminum & magnesium ollakmolu-tnwbiikecjx-kcql enhydramine-lidocaine (MAGIC MOUTHWASH) suspension 1-1-1 15 mL, [...] Call MD for each episode of hypoglycemia. PATIENT SERVICES ASSISTANT STATES GLUTOSE-15 CONTAINS GLUCOSE 40% W/W (50% [...] 0.5 mg, nebulization, Every 4 hours PRN (correspondence clerk), wheezing, shortness of breath, Starting on Sat02/12/22 at 0210 1714 (Given - Provider: Miguel Ángel Rodriguez, REGISTER REPAIRER) 0350 (Given - Provider: Sourav Najera, REGISTER REPAIRER)2200 (Given - Provider: Daria Phillips, REGISTER REPAIRER) loperamide (IMODIUM) capsule 2 mg 2 mg, [...] mg, nebulization, Every 4 hours PRN (correspondence clerk), wheezing, Starting on Sat02/12/22 at 0212 And ipratropium (ATROVENT) 0.02 % nebulizer solution 0.5 mgJump to med 0.5 mg, nebulization, Every 4 hours PRN (correspondence clerk), wheezing, shortness of breath, Starting on Sat02/12/22 [...] Call MD for each episode of hypoglycemia. PATIENT SERVICES ASSISTANT STATES GLUTOSE-15 CONTAINS GLUCOSE 40% W/W (50% [...] tablet 650 mg 2 aluminum & magnesium cpktzsvzh-lhxfddbarfw-xbuctpybqsqatil-lido aida (MAGIC MOUTHWASH) suspension 1-1-1 1 02/12/2022 [...] 02/12/2022 documented in this encounter Care Teams Academic Affairs Vice President Relationship Specialty Start Date End Date Kirt Lindsay DO PCP - General Internal Medicine 02/02/21 Josué Del Valle MD PhD Medical Oncologist/Web Marketing Coordinator Medical Oncology 08/26/19 Tay Charlton MD Consulting Physician Gastroenterology 12/03/21 06/11/23 Halie Khan MD [address] [facility] [address] [place], [place] [id number] Consulting Physician Pulmonary Disease 12/12/21 3 Ant Starks MD [address] [facility] [address] [place], [place] [id number] Consulting Physician Transplant Hepatology 01/12/22 documented as of this encounter
--- OUTSIDE RECORDS SUMMARY | 2024-11-22 12:58 | XMS_ITS | Encounter Summary ---
Author Organization [facility] Address [address] [place] [address] Phone Care Team Providers Care Interstate Bus Dispatcher Name Role Phone Josué Del Valle MD PhD Unavailable Kirt Lindsay DO Primary Care Provider [phone] Tay Charlton MD Unavailable [phone] Halie Khan MD Unavailable [phone] Ant Starks MD Unavailable [phone] Encounter Details Date Type Department Care Team (Late st Contact Info) Description 02/12/2022 Orders Only 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 Gender Identity Not on file Sexual Orientation Not on file documented as of this encounter Plan of Treatment Not on file documented as of this encounter Results * Lactate dehydrogenase (LD) (02/28/2022 8:57 AM CDT) Lactate dehydrogenase (LDH) 199 100 - 250 Units/L [facility] Comment:Testing performed by : [facility], [address] [place] [phone] Blood 02/28/2022 8:57 AM CDT 02/28/2022 9:00 AM CDT Narcisa Kilgore ALUMINUM CAN COLLECTOR LAB BLOOD ORDERABLES Pilar l Result [facility] Department [place] [address] * (ABNORMAL) Comprehensive metabolic panel (02/28/2022 8:57 AM CDT) Sodium 138 135 - 145 mmol/L [facility] Comment:Testing performed by : [facility], [address] [place] [phone] Potassium, pl 5.7(H) 3.3 - 4.9 mmol/L [facility] Comment:Testing performed by : [facility], [address] [place] [phone] Chloride 101 97 - 110 mmol/L [facility] Comment:Testing performed by : [facility], [address] [place] [phone] CO2 30 22 - 32 mmol/L [facility] Comment:Testing performed by : [facility], [address] [place] [phone] Anion gap 7 2 - 15 mmol/L [facility] Comment:Testing performed by : [facility], [address] [place] [phone] BUN 15 8 - 25 mg/dL [facility] Comment:Testing performed by : [facility], [address] [place] [phone] Creatinine 0.66(L) 0.80 - 1.30 mg/dL [facility] Comment:Testing performed by : [facility], [address] [place] [phone] Glucose 163 70 - 199 mg/dL [facility] [...] was last revised 2017. Testing performed by: [facility], [address] [place] [phone] Calcium 9.7 8.5 - 10.3 mg/dL [facility] Comment:Testing performed by : [address] [phone] Bilirubin, total 0.4 0.1 - 1.2 mg/dL [facility] Comment:Testing performed by : [address] [phone] Protein, pl 7.0 6.5 - 8.5 g/dL [facility] Comment:Testing performed by : [address] [phone] Albumin 4.0 3.5 - 5.0 g/dL [facility] Comment:Testing performed by : [address] [phone] Alk phos 221(H) 40 - 130 Units/L [facility] Comment:Testing performed by : [address] [phone] ALT 48 7 - 55 Units/L [facility] Comment:Testing performed by : [facility], [address] [place] [phone] AST 39 10 - 50 Units/L [facility] Comment:Testing performed by : [facility], [address] [place] [phone] Blood 02/28/2022 8:57 AM CDT 02/28/2022 9:00 AM CDT us Narcisa Kilgore ALUMINUM CAN COLLECTOR LAB BLOOD ORDERABLES Pilar l Result [facility] Department [place] [address] * (ABNORMAL) CBC with auto differential (02/28/2022 8:57 AM CDT) WBC 9.0 3.8 - 9.8 K/cumm [facility] Comment:Testing performed by : [facility], [address] [place] [phone] Hgb 11.6(L) 13.8 - 17.2 g/dL [facility] Comment:Testing performed by : [facility], [address] [place] [phone] Hct 33.9(L) 40.7 - 50.3 % [facility] Comment:Testing performed by : [facility], [address] [place] [phone] Plt 309 140 - 440 K/cumm [facility] Comment:Testing performed by : [facility], [address] [place] [phone] MPV 7.5 6.8 - 10.4 fL [facility] Comment:Testing performed by : [address] [phone] RBC 3.23(L) 4.50 - 5.70 M/cumm [facility] Comment:Testing performed by : [address] [phone] MCV 105.0(H) 80.0 - 97.6 fL [facility] Comment:Testing performed by : [facility], [address] [place] [phone] MCH 36.0(H) 26.7 - 33.7 pg [facility] Comment:Testing performed by : [facility], [address] [place] [phone] MCHC 34.2 32.7 - 35.5 g/dL [facility] Comment:Testing performed by : [facility], [address] [place] [phone] RDW CV 16.6(H) 11.8 - 14.6 % [facility] Comment:Testing performed by : [facility], [address] [place] [phone] NRBC abs 0.02(H) 0.00 - 0.01 K/cumm [facility] Comment:Testing performed by : [facility], [address] [place] [phone] Blood 02/28/2022 8:57 AM CDT 02/28/2022 9:00 AM CDT us Narcisa Kilgore ALUMINUM CAN COLLECTOR LAB BLOOD ORDERABLES Pilar armas Result [facility] Department of Laboratories [place], [place] [id number] documented in this encounter Visit Diagnoses Diagnosis AML (acute myeloid leukemia) in remission (HCC)- Primary documented in this encounter Care Teams Interstate Bus Dispatcher Relationship Specialty Start Date End Date Kirt Lindsay DO PCP - General Internal Medicine 02/02/21 Josué Del Valle MD PhD Medical Oncologist/Elderly Companion Medical Oncology 08/26/19 Tay Charlton MD Consulting Physician Gastroenterology 12/03/21 06/11/23 Halie Khan MD [address] [facility] [address] [place] [address] Consulting Physician Pulmonary Disease 12/12/21 3 Ant Starks MD [address] [address] Consulting Physician Transplant Hepatology 01/12/22 documented as of this encounter
--- OUTSIDE RECORDS SUMMARY | 2024-11-22 12:58 | XMS_ITS | Encounter Summary ---
Author Organization [facility] Address [address] [place] [address] Phone Care Team Providers Care Youth Services Specialist Name Role Phone Josué Del Valle MD PhD Unavailable [phone] Kirt Lindsay DO Primary Care Provider [phone] Tay Charlton MD Unavailable [phone] Halie Khan MD Unavailable [phone] StarksAnt goldman MD Unavailable [phone] Encounter Details Date Type Department Care Team (Late st Contact Info) Description 02/15/2022 Telephone [facility] Bone Marrow Trans[facility] Advanced Medicine 7th Floor, [place] [address] Anaid Polanco RN Social History [...] on file 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 Contact (call, Sunseahart message, [id number]): attempted.LVM for patient to call back. documented in this encounter Plan of Treatment Not on file documented as of this encounter Visit Diagnoses Not on filedocumented in this encounter Care Teams Youth Services Specialist Relationship Specialty Start Date End Date Kirt Lindsay DO PCP - General Internal Medicine 02/02/21 Josué Del Valle MD PhD Medical Oncologist/Physiognomist Medical Oncology 08/26/19 Tay Charlton MD Consulting Physician Gastroenterology 12/03/21 06/11/23 Halie Khan MD [address] [address] Consulting Physician Pulmonary Disease 12/12/21 3 Ant Starks MD [address] [address] Consulting Physician Transplant Hepatology 01/12/22 documented as of this encounter
--- OUTSIDE RECORDS SUMMARY | 2024-11-22 12:58 | XMS_ITS | Encounter Summary ---
Author Organization [facility] Address [address] [place] [address] Phone Care Team Providers Care Color Coater Name Role Phone Josué Del Valle MD PhD Unavailable [phone] Kirt Lindsay DO Primary Care Provider [phone] Tay Charlton MD Unavailable [phone] Halie Khan MD Unavailable [phone] StarksAnt goldman MD Unavailable [phone] Encounter Details Date Type Department Care Team (Late st Contact Info) Description 02/27/2022 Telephone [facility] Bone Marrow Transplant [facility] Advanced Medicine 7th Floor, [place] [address] Josué Del Valle MD PhD [address] DIV BONE MARROW TRANSPLANT, [address] [place] [address] Social History Tobacco Use Types [...] file 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 Gender Identity Not on file Sexual Orientation Not on file documented as of this encounter Miscellaneous Notes * Telephone Encounter - Anaid Polanco RN - 02/27/2022 3:16 PM CDT Referred to Superintendent Local Anna Vaughn to help assist with ride [...] on filedocumented in this encounter Care Teams Color Coater Relationship Specialty Start Date End Date Kirt Lindsay DO PCP - General Internal Medicine 02/02/21 Josué Del Valle MD PhD Medical Oncologist/Precipitator Supervisor Medical Oncology 08/26/19 Tay Charlton MD Consulting Physician Gastroenterology 12/03/21 06/11/23 Halie Khan MD [address] [place] [address] Consulting Physician Pulmonary Disease 12/12/21 3 Ant Starks MD [address] [facility] [address] [place], [place] [id number] Consulting Physician Transplant Hepatology 01/12/22 documented as of this encounter
--- OUTSIDE RECORDS SUMMARY | 2024-11-22 12:58 | XMS_ITS | Encounter Summary ---
Author Organization [facility] Address [address] [place] [address] Phone Care Team Providers Care Vocational Nurse Lvn Name Role Phone Josué Del Valle MD PhD Unavailable Kirt Lindsay DO Primary Care Provider [phone] Tay Charlton MD Unavailable [phone] Halie Khan MD Unavailable [phone] Encounter Details Date Type Department Care Team (Late st Contact Info) Description 01/11/2022 Documentation [facility] Surgery [address] 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 H PANNER documented in this encounter Plan of Treatment [...] on filedocumented in this encounter Care Teams Vocational Nurse Lvn Relationship Specialty Start Date End Date Kirt Lindsay DO PCP - General Internal Medicine 02/02/21 Josué Del Valle MD PhD Medical Oncologist/Seafood Preparer Medical Oncology 08/26/19 Tay Charlton MD Consulting Physician Gastroenterology 12/03/21 06/11/23 Halie Khan MD [address] [facility] 202 [place] [address] Consulting Physician Pulmonary Disease 12/12/21 3 documented as of this encounter
--- OUTSIDE RECORDS SUMMARY | 2024-11-22 12:58 | XMS_ITS | Encounter Summary ---
Author Organization [facility] Address [address] [place] [address] Phone Care Team Providers Care Superintendent Marine [employer] Name Role Phone Josué Del Valle MD PhD Unavailable [phone] Kirt Lindsay DO Primary Care Provider [phone] Tay Charlton MD Unavailable Halie Khan MD Unavailable Ant Starks MD Unavailable [phone] Encounter Details Date Type Department Care Team (Late st Contact Info) Description 01/15/2022 Orders Only [facility] Oncology [address] 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 Gender Identity Not on file Sexual Orientation [...] MD LAB URINE ORDERABLES Final Resu lt [facility] [place] [address] * (ABNORMAL) Hemoglobin A1c (02/28/2022 8:57 AM CDT) Hgb A1C 7.9(H) 4.0 - 5.6 % [facility] Estimated Average Glucose 180 mg/dL [facility] Comment: The ADA recommends reporting an estimated [...] ORDERABLES Final Resu lt Performing Organization Address [facility] [place] [address] * TSH (02/28/2022 8:57 AM CDT) Thyroid Stimulating Hormone See Comment 0.30 - 4.20 mcIUnit/m L [facility] Comment:Credited, duplicate test. Blood 02/28/2022 8:57 AM CDT 02/28/2022 9:[address] Montejo MD LAB BLOOD ORDERABLES Final Resu lt Performing Organization Address [facility] de Phone Number [facility] [place] [address] * T4, free (02/28/2022 8:57 AM CDT) Free T4 1.15 0.90 - 1.70 ng/dL [facility] Blood 02/28/2022 8:57 AM CDT 02/28/2022 9:[address] Montejo MD LAB BLOOD ORDERABLES Final Resu lt Performing Organization Address [facility] [place] [address] documented in this encounter Visit Diagnoses Diagnosis Type 2 diabetes mellitus with hyperosmolarity without coma, with long-term current use of insulin (HCC)- Primary Vitamin D deficiency Krrfv-kgyqkg-wdiq disease (HCC) Other osteoporosis without current pathological fracture Screening for thyroid disorder documented in this encounter Care Teams Superintendent Marine Oil Terminal Relationship Specialty Start Date End Date Kirt Lindsay DO PCP - General Internal Medicine 02/02/21 Josué Del Valle MD PhD Medical Oncologist/Electrocardiograph Technician Medical Oncology 08/26/19 Tay Charlton MD Consulting Physician Gastroenterology 12/03/21 06/11/23 Halie Khan MD [address] [facility] [address] [place] [address] Consulting Physician Pulmonary Disease 12/12/21 3 Ant Starks MD [address] [facility] [address] [place], [place] [address] Consulting Physician Transplant Hepatology 01/12/22 documented as of this encounter
--- OUTSIDE RECORDS SUMMARY | 2024-11-22 12:58 | XMS_ITS | Encounter Summary ---
Author Organization [facility] Address [address] [place] [address] Phone Care Team Providers Care House Moving Supervisor Name Role Phone Josué Del Valle MD PhD Unavailable [phone] Kirt Lindsay DO Primary Care Provider [phone] Tay Charlton MD Unavailable [phone] Halie Khan MD Unavailable [phone] Encounter Details Date Type Department Care Team (Late st Contact Info) Description 01/08/2022 Telephone [facility] Surgery [address] [facility] Floor [address] [place] [address] Delmy Medeiros, RN Social History [...] on file 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 Encouraged him to call should he want to reschedule, he verbalized understanding. ----- Message from Marisol Morales RN sent at 01/08/2022 11:24 AM RESIDENTIAL LEASING AGENT ----- Regarding: CPAP MESSAGING-DR Nimisha CANDELARIO Patient states he is canceling his surgery with Dr Candelario on 01/12/22, patients instructed to notify surgeons office. >NOTE: There is no need to reply to this message but if you would like to send a non-urgent reply, please address it to the [facility] staff message POOL address [1:1:: [facility] (number [phone]) ].Please note that messages to this address will be replied to within approximately 1 business day. If you have an urgent reply, please call the [facility] Day of Surgery RN @ [phone] and your call willbe directed to the appropriate staff member. DENTIAL LEASING AGENT DENTIAL LEASING AGENT documented in this encounter Plan of Treatment Not on file documented as of this encounter Visit Diagnoses Not on filedocumented in this encounter Care Teams House Moving Supervisor Relationship Specialty Start Date End Date Kirt Lindsay DO PCP - General Internal Medicine 02/02/21 Josué Del Valle MD PhD Medical Oncologist/Instructor Of Nursing Medical Oncology 08/26/19 Tay Charlton MD Consulting Physician Gastroenterology 12/03/21 06/11/23 Halie Khan MD [address] [facility] [address] [place] [address] Consulting Physician Pulmonary Disease 12/12/21 3 documented as of this encounter
--- OUTSIDE RECORDS SUMMARY | 2024-11-22 12:58 | XMS_ITS | Encounter Summary ---
Author Organization [facility] Address [address] [place] [address] Phone Care Team Providers Care Infantry Unit Leader Name Role Phone Josué Del Valle MD PhD Unavailable [phone] Kirt Lindsay DO Primary Care Provider [phone] Tay Charlton MD Unavailable [phone] Halie Khan MD Unavailable [phone] Encounter Details Date Type Department Care Team (Late st Contact Info) Description 01/08/2022 Telephone [facility] Surgery [address] [facility] Floor 1 [place] [address] Delmy Medeiros, RN Social History [...] file 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 He will arrange a COVID test RENÉE. He will bring a copy of the negative results to the OR on 01/12. Will notify CPAP. CLEANER documented in this encounter Plan of Treatment Not on file documented as of this encounter Visit Diagnoses Not on filedocumented in this encounter Care Teams Infantry Unit Leader Relationship Specialty Start Date End Date Kirt Lindsay DO PCP - General Internal Medicine 02/02/21 Josué Del Valle MD PhD Medical Oncologist/Inspector Rubber Stamp Die Medical Oncology 08/26/19 Tay Charlton MD Consulting Physician Gastroenterology 12/03/21 06/11/23 Halie Khan MD [address] [place] [address] Consulting Physician Pulmonary Disease 12/12/21 3 documented as of this encounter
--- OUTSIDE RECORDS SUMMARY | 2024-11-22 12:58 | XMS_ITS | Encounter Summary ---
Author Organization [facility] Address [address] [place] [address] Phone Care Team Providers Care Accounts Receivable Clerk Name Role Phone Josué Del Valle MD PhD Unavailable [phone] Kirt Lindsay DO Primary Care Provider [phone] Tay Charlton MD Unavailable [phone] Halie Khan MD Unavailable [phone] Ant Starks MD Unavailable [phone] Encounter Details Date Type Department Care Team (Late st Contact Info) Description 01/18/2022 Orders Only [facility] Bone Marrow Transplant [address] [facility] Advanced Medicine 7th [place], [place] [address] Silva Mortensen RMA AML (acute [...] on file 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 [address] [place] [address] Consulting Physician Transplant Hepatology 01/12/22 documented as of this encounter
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
--- OUTSIDE RECORDS SUMMARY | 2024-11-22 12:58 | XMS_ITS | Encounter Summary ---
Author Organization [facility] Address [address] [place] [address] Phone Care Team Providers Care Direct Entry Midwife Name Role Phone Josué Del Valle MD PhD Unavailable [phone] Kirt Lindsay DO Primary Care Provider [phone] Tay Charlton MD Unavailable [phone] Halie Khan MD Unavailable [phone] StarksAnt goldman MD Unavailable [phone] Encounter Details Date Type Department Care Team (Late st Contact Info) Description 02/15/2022 Telephone [facility] Bone Marrow Transplant 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 Contact (call, mychart message, [id number]): completed Discharge Planning Review ??? 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 He stated he will call back if he needs ride assistance. He stated he is working with his densitometrist, curtain drier, professor of biochemistry, and PCP. He has the means to monitor glucose at home. documented in this encounter Plan of Treatment Not on file documented as of this encounter Visit Diagnoses Not on filedocumented in this encounter Care Teams Direct Entry Midwife Relationship Specialty Start Date End Date Kirt Lindsay DO PCP - General Internal Medicine 02/02/21 Josué Del Valle MD PhD Medical Oncologist/Document Management Specialist Medical Oncology 08/26/19 Tay Charlton MD Consulting Physician Gastroenterology 12/03/21 06/11/23 Halie Khan MD [address] [facility] [address] [place] [address] Consulting Physician Pulmonary Disease 12/12/21 3 Ant Starks MD [address] [facility] 202 [place], [place] [address] Consulting Physician Transplant Hepatology 01/12/22 documented as of this encounter
--- OUTSIDE RECORDS SUMMARY | 2024-11-22 12:58 | XMS_ITS | Encounter Summary ---
Author Organization [facility] Address [address] [place] [address] Phone Care Team Providers Care Goodyear Stitcher Name Role Phone Josué Del Valle MD PhD Unavailable [phone] Kirt Lindsay DO Primary Care Provider [phone] Tay Charlton MD Unavailable [phone] Halie Khan MD Unavailable [phone] StarksAnt goldman MD Unavailable [phone] Encounter Details Date Type Department Care Team (Late st Contact Info) Description 02/07/2022 Telephone [facility] Bone Marrow Transplant [address] [facility] Advanced Medicine 7th Floor, [place] [address] Josué Del Valle MD PhD [address] DIV BONE MARROW TRANSPLANT[address] [place] [address] Social History Tobacco Use Types [...] on file Legal Sex Male 10:48 AM BRANCH EXAMINER Gender Identity Not on file Sexual [...] documented as of this encounter Care Teams Goodyear Stitcher Relationship Specialty Start Date End Date Kirt Lindsay DO PCP - General Internal Medicine 02/02/21 Josué Del Valle MD PhD Medical Oncologist/Director Network Development Medical Oncology 08/26/19 Tay Charlton MD Consulting Physician Gastroenterology 12/03/21 06/11/23 Halie Khan MD [address] [facility] 202 [place] [address] Consulting Physician Pulmonary Disease 12/12/21 3 Ant Starks MD [address] [facility] 202 [place] [address] Consulting Physician Transplant Hepatology 01/12/22 documented as of this encounter
--- OUTSIDE RECORDS SUMMARY | 2024-11-22 12:58 | XMS_ITS | Encounter Summary ---
Author Organization [facility] Address [address] [place] [address] Phone Care Team Providers Care Paying Teller Name Role Phone Josué Del Valle MD PhD Unavailable [phone] Kirt Lindsay DO Primary Care Provider [phone] Tay Charlton MD Unavailable [phone] Halie Khan MD Unavailable [phone] StarksAnt goldman MD Unavailable [phone] Encounter Details Date Type Department Care Team (Late st Contact Info) Description 02/26/2022 Telephone [facility] [address] 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 Gender Identity Not on file Sexual Orientation Not on file documented as of this encounter Miscellaneous Notes * Telephone Encounter - Narcisa Kilgore NP - 02/26/2022 12:52 PM CDT Added labs documented in this encounter Plan of Treatment Not on file documented as of this encounter Visit Diagnoses Not on filedocumented in this encounter Care Teams Paying Teller Relationship Specialty Start Date End Date Kirt Lindsay DO PCP - General Internal Medicine 02/02/21 Josué Del Valle MD PhD Medical Oncologist/Grab Driver Medical Oncology 08/26/19 Tay Charlton MD Consulting Physician Gastroenterology 12/03/21 06/11/23 Halie Khan MD [address] [address] Consulting Physician Pulmonary Disease 12/12/21 3 Ant Starks MD [address] [address] Consulting Physician Transplant Hepatology 01/12/22 documented as of this encounter
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
--- OUTSIDE RECORDS SUMMARY | 2024-11-22 12:59 | XMS_ITS | Encounter Summary ---
Author Organization [facility] Healthcare Address [address] [place] [address] Care Team Providers Care Grommet Man Name Role Phone Josué Del Valle MD PhD Unavailable [phone] Kirt Lindsay DO Primary Care Provider [phone] Encounter Details Date Type Department Care Team (Latest Contact Info) Description 11/14/2021 7:35 AM FURNITURE SALESPERSON - 11/14/2021 11:59 PM FURNITURE SALESPERSON Hospital Encounter [facility] [address] [address] Discharge Disposition: Discharge to home [...] on file Legal Sex Male 10:48 AM FURNITURE SALESPERSON Gender Identity Not on file Sexual Orientation [...] of insulin ([facility]),Soozz-sivdod-uplo disease ([facility]),H/O allogeneic bone marrow transplant ([facility]),Pure hypercholesterolemia Take 1 tablet (40 mg total) by mouth daily 30 tablet 6 0 07/30/20 24 blood glucose diagnostic stripIndications:Type 2 diabetes mellitus with hyperosmolarity without coma, with long-term current use of insulin ([facility]) Check blood sugar tid 100 each 4 [...] insulin ([facility]) TAKE 1 CAPSULE BY MOUTH FOUR TIMES [...] mg tabletIndications:AML (acute myeloid leukemia) in remission (HCC),Xvdnx-yuijxr-vcfz disease (HCC) TAKE 1 TABLET BY MOUTH EVERY DAY 90 tablet 1 12/26/19 22 mycophenolate mofetil (CELLCEPT) 500 mg tabletIndications:AML (acute myeloid leukemia) in remission (HCC),Ewjrf-finydm-mgyq disease (HCC) TAKE 2 TABLETS(1000 MG) BY [...] mcg inhalerIndications:AML (acute myeloid leukemia) in remission (HCC),Gkorh-nqadqz-uaaq disease (HCC),H/O allogeneic bone marrow transplant (HCC) [...] Comments ERCP IP Routine 11/14/2021 8:24 AM FURNITURE SALESPERSON documented in this encounter Results * [place] ERCP Biliary and Pancreatic (11/14/2021 8:24 AM FURNITURE SALESPERSON) Narrative [facility] - 11/14/2021 8:24 AM FURNITURE SALESPERSON The images from this study are not interpreted by Radiology. ??Please refer to the physician's procedure / OR operative note. us Tay Charlton MD IMG FLUOROSCOPY PROCEDURES Final Result [facility] documented in this encounter Visit Diagnoses Not on filedocumented in this encounter Care Teams Grommet Man Relationship Specialty Start Date End Date Kirt Lindsay DO PCP - General Internal Medicine 02/02/21 Josué Del Valle MD PhD Medical Oncologist/Feed Manager Medical Oncology 08/26/19 documented as of this encounter
--- OUTSIDE RECORDS SUMMARY | 2024-11-22 12:59 | XMS_ITS | Encounter Summary ---
Author Organization [facility] Address [address] [place] [address] Phone Care Team Providers Care Plant Operator/Shift Supervisor Name Role Phone Josué Del Valle MD PhD Unavailable Kirt Lindsay DO Primary Care Provider [phone] Tay Charlton MD Unavailable [phone] Reason for Visit * Reason Onset Date Comments Scheduling Appointments 12/06/2021 Encounter Details Date Type Department Care Team (Late st Contact Info) Description 12/06/2021 Telephone [facility] Oncology [facility] Advanced Medicine 7th [place] [address] [place] [address] Bonnie Lara, RN Scheduling Appointments [...] on file Legal Sex Male 10:48 AM DIETARY SERVER Gender Identity Not on file Sexual Orientation Not on file documented as of this encounter Miscellaneous Notes * Addendum Note - Bonnie Lara RN - 12/07/2021 1:12 PM CSTAddended by: BONNIE LARA on: 12/07/2021 01:12 PM Modules accepted: Orders ARY SERVER * Telephone Encounter - Bonnie Lara RN - 12/07/2021 1:05 PM DIETARY SERVER Attempted to call pt again @ [phone] regarding request to be rescheduled. No answer, left message requesting return call and provided callback number. Orders placed for pt to be rescheduled for lab/ROV/Reclast ARY SERVER * Telephone Encounter - Bonnie Lara RN - 12/06/2021 12:13 PM DIETARY SERVER Received VM from pt stating that he needs Saturday appts rescheduled. Attempted to call pt back, no answer. Left message for pt requesting return call, discussed importance of getting reclast as recommended. Encouraged pt to call back with times/dates that work for pt so we do not have to continue toreschedule appts. ARY SERVER documented in this encounter Plan of Treatment Not on file documented as of this encounter Visit Diagnoses Diagnosis Type 2 diabetes mellitus with hyperosmolarity without coma, with long-term current use of insulin (HCC)- Primary Vitamin D deficiency Osteopenia, unspecified location Other osteoporosis without current pathological fracture documented in this encounter Care Teams Plant Operator/Shift Supervisor Relationship Specialty Start Date End Date Kirt Lindsay DO PCP - General Internal Medicine 02/02/21 Josué Del Valle MD PhD Medical Oncologist/Cigar Wrapper Medical Oncology 08/26/19 Tay Charlton MD Consulting Physician Gastroenterology 12/03/21 06/11/23 documented as of this encounter
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
--- OUTSIDE RECORDS SUMMARY | 2024-11-22 12:59 | XMS_ITS | Encounter Summary ---
Author Organization [facility] Address [address] [place] [address] Care Team Providers Care Market Research Lead Name Role Phone Josué Del Valle MD PhD Unavailable [phone] Kirt Lindsay DO Primary Care Provider [phone] Tay Charlton MD Unavailable [phone] Halie Khan MD Unavailable [phone] Reason for Referral * Diagnostic Imaging (Routine) - Closed Specialty Diagnoses / Procedures Referred By Ana M anderson Referred To Contact Radiology Diagnoses Pancreatic lesion Procedures CT abdomen pelvis with and without contrast Ant Starks MD Phone: tel: fax: [facility] [address] [place] [address] Referral ID Status Reason Start Date Expiration Date Visits Re quested Visits Authorized [id number] Closed 12/04/2021 01/03/2023 1 1 GER OF DRILLING Reason for Visit * Diagnostic Imaging (Routine) - Closed Specialty Diagnoses / Procedures Referred By Ana M anderson Referred To Contact Radiology Diagnoses Pancreatic lesion Procedures CT abdomen pelvis with and without contrast Ant Starks MD Phone: tel: fax: [facility] [place] [address] Referral ID Status Reason Start Date Expiration Date Visits Re quested Visits Authorized [id number] Closed 12/04/2021 01/03/2023 1 1 Encounter Details Date Type Department Care Team (Latest Contact Info) Description 12/12/2021 11:49 AM MANAGER OF DRILLING - 12/12/2021 11:59 PM MANAGER OF DRILLING Hospital Encounter [facility] Imaging [address] [id number] Ant Starks MD [address] [facility] [address] [place] [address] Pancreatic lesion Discharge Disposition: Discharge to home [...] Legal Sex Male 10:48 AM MANAGER OF DRILLING Gender Identity Not on file Sexual Orientation [...] inhalerIndications:AML (acute myeloid leukemia) in remission ([facility]) Inhale 2 puffs every 4 (four) hours as needed for wheezing 8.5 g 3 1 01/19/20 22 Alcohol Prep Pads pads, medicated 1 01/08/20 22 atorvastatin (LIPITOR) 40 mg tabletIndications:AML (acute myeloid leukemia) in remission ([facility]),Type 2 diabetes mellitus with hyperglycemia, with long-term current use of insulin ([facility]),Lqvgt-xdpzhc-ddxn disease ([facility]),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[facility]),Pure hypercholesterolemia Take 1 tablet (40 mg total) by mouth daily 30 tablet 6 0 07/30/20 24 blood glucose diagnostic stripIndications:Type 2 diabetes mellitus with hyperosmolarity without coma, with long-term current use of insulin ([facility]) Check blood sugar tid 100 each 4 0 01/08/20 22 blood-glucose meter miscIndications:Type 2 diabetes mellitus with hyperosmolarity without coma, with long-term current use of insulin ([facility]) 1 Device 3 (three) times a day 1 each 9 02/20/20 24 ergocalciferol (VITAMIN D) 50,000 unit capsuleIndications:AML (acute myeloid leukemia) in remission ([facility]),H/O allogeneic bone marrow transplant ([facility]),Vitamin D deficiency TAKE 1 CAPSULE BY MOUTH ONCE A WEEK DIRECTED 12 capsule 3 1 02/20/20 24 furosemide (LASIX) 20 mg tabletIndications:Type 2 diabetes mellitus with hyperosmolarity without coma, with long-term current use of insulin ([facility]) Take 1 tablet (20 mg total) by mouth daily As needed. 30 tablet 0 02/20/20 24 gabapentin (NEURONTIN) 300 mg capsuleIndications:Type 2 diabetes mellitus with hyperosmolarity without coma, with long-term current use of insulin ([facility]) Take 1 capsule (300 mg total) by mouth 4 (four) times a day 120 capsule 3 2 02/15/20 22 insulin glargine (LANTUS, BASAGLAR) 100 unit/mL (3 mL) pen for injectionIndications:Typ e 2 diabetes mellitus with hyperosmolarity without coma, with long-term current use of insulin ([facility]) INJECT 15 UNITS NIGHTLY SUB-Q. 1 pen 5 1 02/20/20 24 insulin lispro (HumaLOG, ADMELOG) 100 unit/mL pen for injectionIndications:Typ e 2 diabetes mellitus with hyperosmolarity without coma, with long-term current use of insulin ([facility]) INJECT 5-10 UNITS TID WITH MEALS PLUS SLIDING SCALE. TDD OF 35 UNITS. 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),Rtptj-sxjupz-zyni disease (HCC) TAKE 1 TABLET BY MOUTH EVERY DAY 90 tablet 1 12/26/19 22 mycophenolate mofetil (CELLCEPT) 500 mg tabletIndications:AML (acute myeloid leukemia) in remission (HCC),Kifsw-stcomv-aaer disease (HCC) TAKE 2 TABLETS(1000 MG) BY [...] mcg inhalerIndications:AML (acute myeloid leukemia) in remission (HCC),Gporn-sqffnn-otjd disease (HCC),H/O allogeneic bone marrow transplant (HCC) [...] Read Routine (OP Routine) 12/12/2021 12:06 PM MANAGER OF DRILLING Pancreatic lesion POC ISTAT Routine 12/12/2021 12:01 PM MANAGER OF DRILLING documented in this encounter Results * CT abdomen pelvis with and without contrast (12/12/2021 12:06 PM MANAGER OF DRILLING) Anatomical Region Laterality Modality Body N/A Computed Tomogra phy 12/12/2021 12:4 3 PM MANAGER OF DRILLING Impressions 12/12/2021 12:43 PM MANAGER OF DRILLING 1. Unchanged lobulated hypoattenuating lesion along the [...] Paulo Canada M.D. Narrative 12/12/2021 12:43 PM MANAGER OF DRILLING EXAMINATION: ??Computed tomography of the abdomen and [...] Result * POC ISTAT (12/12/2021 12:01 PM MANAGER OF DRILLING) Creatinine, POC, bld 0.9 0.6 - 1.3 mg/dL ZULEMA GLEASON Comment: Interpretive data Creatinine <1.5 mg/dL and stable receive IV contrast. Creatinine 1.5-1.9 mg/dL and stable use Visipaque IV contrast. Current interpretive data last reviewed 2015. POC Device Number [id number] ZULEMA DUFF POC Performer [id number] ZULEMA GLEASON Blood 12/12/2021 12:0 1 PM MANAGER OF DRILLING 12/12/2021 12:01 PM MANAGER OF DRILLING Ant Starks MD LAB BLOOD ORDERABLES Final Result [facility] [address] [facility]. [place] [address] documented in this encounter Visit Diagnoses Diagnosis Pancreatic lesion documented in this encounter Administered Medications Inactive Administered Medications - up to 3 most recent administrations Medication Order MAR Action Action Date Dose Rate Site ioversoL (OPTIRAY 350) syringe syringe 125 mL 125 mL, intravenous, Once in imaging, contrast, Starting on 12/12/21 at 1201, For 1 dose Contrast Given 12/12/2021 12:01 PM MANAGER OF DRILLING 121 mL documented in this encounter Orders Medications Ordered That Girma ht Not Have Been Administered Count Last Ordered Date First Ordered Date ioversoL (OPTIRAY 350) syrin ge syringe 125 mL 1 12/12/2021 documented in this encounter Care Teams Market Research Lead Relationship Specialty Start Date End Date Kirt Lindsay DO PCP - General Internal Medicine 02/02/21 Josué Del Valle MD PhD Medical Oncologist/Light Rail Train Operator Medical Oncology 08/26/19 Tay Charlton MD Consulting Physician Gastroenterology 12/03/21 06/11/23 Halie Khan MD [address] [facility] [address] [place] [address] Consulting Physician Pulmonary Disease 12/12/21 3 documented as of this encounter
--- OUTSIDE RECORDS SUMMARY | 2024-11-22 12:59 | XMS_ITS | Encounter Summary ---
Author Organization [facility] Address [address] [place] [address] Phone Care Team Providers Care Sealer Dry Cell Name Role Phone Josué Del Valle MD PhD Unavailable [phone] Kirt Lindsay DO Primary Care Provider [phone] Tay Charlton MD Unavailable [phone] Reason for Referral * Diagnostic Imaging (Routine) - Closed Specialty Diagnoses / Procedures Referred By Contac t Referred To Contact Radiology Diagnoses Pancreatic lesion Procedures CT abdomen pelvis with and without contrast Ant Starks MD Phone: tel: fax: [address] [address] Referral ID Status Reason Start Date Expiration Date Visits Re quested Visits Authorized [id number] Closed 12/04/2021 01/03/2023 1 1 PRODUCTION FIELD SUPERVISOR Encounter Details Date Type Department Care Team (Late st Contact Info) Description 12/04/2021 Orders Only [facility] Surgery [address] [facility] Floor [address] [place] [address] Ant Starks MD [address] [place] [address] Pancreatic lesion (Primary Dx) Social History Tobacco [...] on file Legal Sex Male 10:48 AM SEED PRODUCTION FIELD SUPERVISOR Gender Identity Not on file Sexual Orientation Not on file documented as of this encounter Plan of Treatment Not on file documented as of this encounter Results * CT abdomen pelvis with and without contrast (12/12/2021 12:06 PM SEED PRODUCTION FIELD SUPERVISOR) Anatomical Region Laterality Modality Body N/A Computed Tomogra phy 12/12/2021 12:4 3 PM SEED PRODUCTION FIELD SUPERVISOR Impressions 12/12/2021 12:43 PM SEED PRODUCTION FIELD SUPERVISOR 1. Unchanged lobulated hypoattenuating lesion along the [...] Paulo Canada M.D. Narrative 12/12/2021 12:43 PM SEED PRODUCTION FIELD SUPERVISOR EXAMINATION: ??Computed tomography of the abdomen and [...] lesion documented in this encounter Care Teams Sealer Dry Cell Relationship Specialty Start Date End Date Kirt Lindsay DO PCP - General Internal Medicine 02/02/21 Josué Del Valle MD PhD Medical Oncologist/Table Assembler Medical Oncology 08/26/19 Tay Charlton MD Consulting Physician Gastroenterology 12/03/21 06/11/23 documented as of this encounter
--- OUTSIDE RECORDS SUMMARY | 2024-11-22 12:59 | XMS_ITS | Encounter Summary ---
Author Organization [facility] Address [address] [place] [address] Phone Care Team Providers Care Transmission And Protection Engineer Name Role Phone Josué Del Valle MD PhD Unavailable [phone] Kirt Lindsay DO Primary Care Provider [phone] Encounter Details Date Type Department Care Team (Late st Contact Info) Description 11/22/2021 Orders Only [facility] Oncology [address] [facility] Advanced Medicine 7th [place] [address] [place] [address] Bonnie Lara RN Type 2 [...] on file Legal Sex Male 10:48 AM TAIL RIPPER Gender Identity Not on file Sexual Orientation Not on file documented as of this encounter Plan of Treatment Not on file documented as of this encounter Visit Diagnoses Diagnosis Type 2 diabetes mellitus with hyperosmolarity without coma, with long-term current use of insulin (HCC)- Primary Vitamin D deficiency Osteoporosis without current pathological fracture, unspecified osteoporosis type documented in this encounter Care Teams Transmission And Protection Engineer Relationship Specialty Start Date End Date Kirt Lindsay DO PCP - General Internal Medicine 02/02/21 Josué Del Valle MD PhD Medical Oncologist/Independent Trader Medical Oncology 08/26/19 documented as of this encounter
--- OUTSIDE RECORDS SUMMARY | 2024-11-22 12:59 | XMS_ITS | Encounter Summary ---
Author Organization [facility] Address [address] [place] [address] Phone Care Team Providers Care Cnc Operator Programmer Name Role Phone Josué Del Valle MD PhD Unavailable [phone] Kirt Lindsay DO Primary Care Provider [phone] Tay Charlton MD Unavailable [phone] Halie Khan MD Unavailable [phone] Encounter Details Date Type Department Care Team (Late st Contact Info) Description 12/14/2021 Documentation [facility] Surgery [address] [facility] Floor 1 [place] [address] Delmy Medeiros, RN Social History Tobacco Use [...] file Legal Sex Male 10:48 AM SECURITY NURSE Gender Identity Not on file Sexual [...] return to our office. PLEASE FAX TO [phone] Patient, Brady Jones 67, can hold XARELTO 20mg daily days before the above mentioned procedure. Recommendations: Signature: Date: If there are any questions please call: INDRA Girard, RN [facility] Department of Surgery [address] [place] [address] RITY NURSE * Delmy Medeiros RN - 12/14/2021 4:12 [...] return to our office. PLEASE FAX TO [phone] Recommendations: Signature: Date: If there are any questions please call: INDRA Girard, RN [facility] Department of Surgery [address] [place] [address] RITY NURSE documented in this encounter Plan of Treatment Not on file documented as of this encounter Visit Diagnoses Not on filedocumented in this encounter Care Teams Cnc Operator Programmer Relationship Specialty Start Date End Date Kirt Lindsay DO PCP - General Internal Medicine 02/02/21 Josué Del Valle MD PhD Medical Oncologist/Network Systems Operator Medical Oncology 08/26/19 Tay Charlton MD Consulting Physician Gastroenterology 12/03/21 06/11/23 Halie Khan MD [address] [place] [address] Consulting Physician Pulmonary Disease 12/12/21 3 documented as of this encounter
--- OUTSIDE RECORDS SUMMARY | 2024-11-22 12:59 | XMS_ITS | Encounter Summary ---
Author Organization [facility] Address [address] [place] [address] Phone Care Team Providers Care Reinsurance Clerk Name Role Phone Josué Del Valle MD PhD Unavailable [phone] Kirt Lindsay DO Primary Care Provider [phone] Encounter Details Date Type Department Care Team (Late st Contact Info) Description 11/22/2021 Telephone [facility] Bone Marrow Transplant [address] [facility] Advanced Medicine 7th [place], [place] [address] Narcisa Kilgore NP [address] DIV IM BONE MARROW TRANSPLANT, [address] [place], [place] [id number] Social History Tobacco Use Types Packs/Day Years [...] on file Legal Sex Male 10:48 AM SECONDARY SCHOOL TEACHER LIBRARIAN Gender Identity Not on file Sexual Orientation Not on file documented as of this encounter Miscellaneous Notes * Telephone Encounter - Narcisa Kilgore NP - 11/23/2021 11:26 AM SECONDARY SCHOOL TEACHER LIBRARIAN No he has 2 appts that day NDARY SCHOOL TEACHER LIBRARIAN documented in this encounter Plan of Treatment Not on file documented as of this encounter Visit Diagnoses Not on filedocumented in this encounter Care Teams Reinsurance Clerk Relationship Specialty Start Date End Date Kirt Lindsay DO PCP - General Internal Medicine 02/02/21 Josué Del Valle MD PhD Medical Oncologist/Radiator Specialist Medical Oncology 08/26/19 documented as of this encounter
--- OUTSIDE RECORDS SUMMARY | 2024-11-22 12:59 | XMS_ITS | Encounter Summary ---
Author Organization [facility] [place] [facility] Address [address] [place] [address] Phone Care Team Providers Care Water Fitness Instructor Name Role Phone Josué Del Valle MD PhD Unavailable [phone] Kirt Lindsay DO Primary Care Provider [phone] Reason for Referral * Consultation (Routine) - Closed Specialty Diagnoses / Procedures Referred By Contac t Referred To Contact Hepatobiliary Surgery Diagnoses Biliary sludge Tay Charlton MD [address] [place] [address] Phone: tel: fax: [facility] (All Locations) Referral ID Status Reason Start Date Expiration Date V isits Requested Visits Authorized [id number] Closed Specialty Services Required 11/15/2021 12/15/2022 9 9 Question Answer Please select the performing region: [facility] (All Locations) [167] # of visits: 1 Comments Refer to [facility] for consideration of cholecystectomy. INTERN Encounter Details Date Type Department Care Team (Late st Contact Info) Description 11/15/2021 Orders Only [facility] Gastroenterology [address] [place] [address] Tay Charlton MD [address] [place] [address] Biliary sludge (Primary Dx) Social History Tobacco [...] file Legal Sex Male 10:48 AM RN INTERN Gender Identity Not on file Sexual [...] tract documented in this encounter Care Teams Water Fitness Instructor Relationship Specialty Start Date End Date Kirt Lindsay DO PCP - General Internal Medicine 02/02/21 Josué Del Valle MD PhD Medical Oncologist/Student Assistance Counselor Medical Oncology 08/26/19 documented as of this encounter
--- OUTSIDE RECORDS SUMMARY | 2024-11-22 12:59 | XMS_ITS | Encounter Summary ---
Author Organization [facility] Address [address] [place] [address] Phone Care Team Providers Care Pasting Machine Offbearer Name Role Phone Josué Del Valle MD PhD Unavailable [phone] Kirt Lindsay DO Primary Care Provider [phone] Tay Charlton MD Unavailable [phone] Encounter Details Date Type Department Care Team (Late st Contact Info) Description 12/07/[facility] [address] [facility] Advanced Medicine 7th Floor, [place] [address] Josué Del Valle MD PhD [address] DIV IM BONE MARROW TRANSPLANT, [address] [place], [place] [id number] Social History Tobacco Use Types Packs/Day Years [...] on file Legal Sex Male 10:48 AM SQL PROGRAMMER ANALYST Gender Identity Not on file Sexual [...] Mellisa Rubalcava RN - 12/07/2021 4:50 PM SQL PROGRAMMER ANALYST Refills sent PROGRAMMER ANALYST * Telephone Encounter - Marisa Mcdermott - 12/07/2021 4:36 PM CST Edna ford [facility] calling for refills for Gabapentine 300mg and Tacrolimus 0.5mg PROGRAMMER ANALYST documented in this encounter Plan of [...] documented as of this encounter Care Teams Pasting Machine Offbearer Relationship Specialty Start Date End Date Kirt Lindsay DO PCP - General Internal Medicine 02/02/21 Josué Del Valle MD PhD Medical Oncologist/Gate Supervisor Medical Oncology 08/26/19 Tay Charlton MD Consulting Physician Gastroenterology 12/03/21 06/11/23 documented as of this encounter
--- OUTSIDE RECORDS SUMMARY | 2024-11-22 13:00 | XMS_ITS | Encounter Summary ---
Author Organization [facility] Address [address] [place] [address] Phone Care Team Providers Care International Affairs Vice President Name Role Phone Josué Del Valle MD PhD Unavailable [phone] Kirt Lindsay DO Primary Care Provider [phone] Encounter Details Date Type Department Care Team (Late st Contact Info) Description 09/12/2021 Telephone [facility] Bone Marrow Transplant [address] 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 Contact (call, mychart message, [id number]) achieved or 2 contacts attempted: Yes Discharge [...] on filedocumented in this encounter Care Teams International Affairs Vice President Relationship Specialty Start Date End Date Kirt Lindsay DO PCP - General Internal Medicine 02/02/21 Josué Del Valle MD PhD Medical Oncologist/Merchandising Assistant Medical Oncology 08/26/19 documented as of this encounter
--- OUTSIDE RECORDS SUMMARY | 2024-11-22 13:00 | XMS_ITS | Encounter Summary ---
Author Organization [facility] Address [address] [place] [address] Phone Care Team Providers Care Costume Draper Name Role Phone Josué Del Valle MD PhD Unavailable [phone] Kirt Lindsay DO Primary Care Provider [phone] Encounter Details Date Type Department Care Team (Late st Contact Info) Description 09/28/2021 Orders Only [facility] Bone Marrow Transplant [address] [facility] Advanced Medicine 7th Floor, [place] [address] Josué Del Valle MD PhD [address] DIV IM BONE MARROW TRANSPLANT, [address] [place], [place] [phone] Social History Tobacco Use Types Packs/Day Years [...] on file Legal Sex Male 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
--- OUTSIDE RECORDS SUMMARY | 2024-11-22 13:00 | XMS_ITS | Encounter Summary ---
Author Organization [facility] Address [address] [place] [address] Phone Care Team Providers Care Blanket Maker Name Role Phone Josué Del Valle MD PhD Unavailable [phone] Kirt Lindsay DO Primary Care Provider [phone] Encounter Details Date Type Department Care Team (Late st Contact Info) Description 10/03/2021 Orders Only [facility] Gastroenterology [address] [facility] Medical Office Building [address] [place] [address] Tay Charlton MD [address] [place], [place] [phone] Encounter for removal of biliary stent (Primary [...] on file Legal Sex Male 10:48 AM SPECIAL EVENT 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 Del Valle Hold order Method sent: Loop Fax Date hold received: Hold instructions: CONTINUE ASPIRIN INFORMATION REQUESTED []?Imaging: []?Medical Progress Note/H&P []?Medication list []?Other: ?? PATIENT OPTIMIZATION []?Physician reviewing escalation: []?CPAP: Date scheduled: Outcome : []? Location limitations: Scheduling Scheduling location limitations: Dental Laboratory Technology Teacher needed []? NA Language: POA []? NA Name: SPECIAL PROCEDURE INSTRUCTIONS ? Scheduling Notes Procedure information Date of procedure: 11/14/2021 Time of procedure: 0800 Arrival time: 0700 Location: [facility] Proceduralist: Zoltan Landry Method of instructions: Mailed copy and Verbal [x]?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 ride/highway landscape architect [x]?Post anesthesia restrictions given [x]?NPO Instructions: [x]?Diet Instructions: [x]?Take non-blood thinner prescription meds that morning [x]?Bring med list, photo ID, insurance card, no valuables []?Bring COVID vaccination card (if vaccinated) Bowel Prep Prep prescribed: NA Method of Bowel Prep (RX): NA ?? IAL EVENT ASSISTANT documented in this encounter Plan of Treatment Not on file documented as of this encounter Visit Diagnoses Diagnosis Encounter for removal of biliary stent- Primary documented in this encounter Orders Case Request Count Last Ordered Date First Orde red Date CASE REQUEST GI 1 10/03/2021 documented in this encounter Care Teams Blanket Maker Relationship Specialty Start Date End Date Kirt Lindsay DO PCP - General Internal Medicine 02/02/21 Josué Del Valle MD PhD Medical Oncologist/Correctional Facility Nurse Medical Oncology 08/26/19 documented as of this encounter
--- OUTSIDE RECORDS SUMMARY | 2024-11-22 13:00 | XMS_ITS | Encounter Summary ---
Author Organization [facility] Address [address] [place] [address] Phone Care Team Providers Care Closer On Name Role Phone Josué Del Valle MD PhD Unavailable [phone] Kirt Lindsay DO Primary Care Provider [phone] Reason for Visit * Reason Onset Date Comments Reschedule GI Procedure 10/03/2021 Encounter Details Date Type Department Care Team (Late st Contact Info) Description 10/03/2021 Telephone [facility] Gastroenterology [address] [place] [address] [place] [address] Daya Dailey LPN Reschedule GI [...] on file Legal Sex Male 10:48 AM PRE SCHOOL MANAGER Gender Identity Not on file Sexual Orientation Not on file documented as of this encounter Miscellaneous Notes * Telephone Encounter - Daya Dailey LPN - 10/03/2021 1:05 PM CST Called patient to reschedule ERCP with Dr. Charlton and he stated he is already rescheduled for November 14. Patient stated he currently has COVID. SCHOOL MANAGER * Telephone Encounter - Daya Dailey LPN - 10/03/2021 1:04 PM CST ----- Message from Tay Charlton MD sent at 10/03/2021 9:24 AM PRE SCHOOL MANAGER ----- Seems like this patient no-showed. I tried calling him, but no answer. He needs to be set up for another ercp with me. dejuan Dsouza SCHOOL MANAGER documented in this encounter Plan of Treatment Not on file documented as of this encounter Visit Diagnoses Not on filedocumented in this encounter Care Teams Closer On Relationship Specialty Start Date End Date Kirt Lindsay DO PCP - General Internal Medicine 02/02/21 Josué Del Valle MD PhD Medical Oncologist/Manager Social Work Medical Oncology 08/26/19 documented as of this encounter
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
--- OUTSIDE RECORDS SUMMARY | 2024-11-22 13:00 | XMS_ITS | Encounter Summary ---
Author Organization [facility] Address [address] [place] [address] Phone Care Team Providers Care Shaker Washer Name Role Phone Josué Del Valle MD PhD Unavailable [phone] Kirt Lindsay DO Primary Care Provider [phone] Encounter Details Date Type Department Care Team (Late st Contact Info) Description 10/03/2021 Orders Only [facility] Gastroenterology [address] [facility] Medical Office Building [address] [place] [address] Meg Orellana RN Pre-procedure lab [...] on file Legal 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
--- OUTSIDE RECORDS SUMMARY | 2024-11-22 13:00 | XMS_ITS | Encounter Summary ---
Author Organization [facility] Address [address] [place] [address] Care Team Providers Care Swimming Pool Servicer Name Role Phone Josué Del Valle MD PhD Unavailable [phone] Kirt Lindsay DO Primary Care Provider [phone] Encounter Details Date Type Department Care Team (Late st Contact Info) Description 11/09/2021 Orders Only [facility] Testing Site - [facility]. 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 Date of Px/chemo/treatment/placement/transfer 11/14/2021 ?? Testing site patient will be sent to: [place], [place] ?? Date testing requested: 11/10/2021 ?? Testing: COVID-19 RNA ?? Does the patient currently work in a healthcare facility with direct patient contact? No ?? Is the patient a resident of a congregate care or living setting? No LIFE PHOTOGRAPHER documented in this encounter Plan of Treatment Not on file documented as of this encounter Visit Diagnoses Diagnosis Pre-procedure lab exam- Primary Pre-procedural laboratory examination documented in this encounter Care Teams Swimming Pool Servicer Relationship Specialty Start Date End Date Kirt Lindsay DO PCP - General Internal Medicine 02/02/21 Josué Del Valle MD PhD Medical Oncologist/Machine Paint Mixer Medical Oncology 08/26/19 documented as of this encounter
--- OUTSIDE RECORDS SUMMARY | 2024-11-22 13:00 | XMS_ITS | Encounter Summary ---
Author Organization [facility] Address [address] [place] [address] Phone Care Team Providers Care Therapist Radiation Name Role Phone Josué Del Valle MD PhD Unavailable [phone] Kirt Lindsay DO Primary Care Provider [phone] Reason for Visit * Reason Onset Date Comments results/recommendations 09/22/2021 Encounter Details Date Type Department Care Team (Late st Contact Info) Description 09/22/2021 Telephone [facility] Gastroenterology [address] [place] [address] [place] [address] Vee Drake LPN results/recommendations Social [...] on file 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
--- OUTSIDE RECORDS SUMMARY | 2024-11-22 13:00 | XMS_ITS | Encounter Summary ---
Author Organization [facility] Address [address] [place] [address] Phone Care Team Providers Care Blanket Weaver Name Role Phone Josué Del Valle MD PhD Unavailable [phone] Kirt Lindsay DO Primary Care Provider [phone] Reason for Visit * Reason Onset Date Comments pre-procedure covid testing 10/04/2021 Encounter Details Date Type Department Care Team (Late st Contact Info) Description 10/04/2021 Telephone [facility] [address] [facility] Medical [address] [place] [address] Meg Orellana RN pre-procedure covid [...] on file 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 Stated I will send instructions through [employer]. /b with questions TER MANAGER documented in this encounter Plan of Treatment Not on file documented as of this encounter Visit Diagnoses Not on filedocumented in this encounter Care Teams Blanket Weaver Relationship Specialty Start Date End Date Kirt Lindsay DO PCP - General Internal Medicine 02/02/21 Josué Del Valle MD PhD Medical Oncologist/Passport Application Examiner Medical Oncology 08/26/19 documented as of this encounter
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
--- OUTSIDE RECORDS SUMMARY | 2024-11-22 13:00 | XMS_ITS | Encounter Summary ---
Author Organization [facility] Address [address] [place] [address] Phone Care Team Providers Care Diesel Engine Operator Name Role Phone Josué Del Valle MD PhD Unavailable [phone] Kirt Lindsay DO Primary Care Provider [phone] Encounter Details Date Type Department Care Team (Late st Contact Info) Description 10/03/2021 Orders Only [facility] Gastroenterology [address] [facility] Medical Office Building [address] [place] [address] Tay Charlton MD [address] [place], [place] [id number] Social History Tobacco Use Types Packs/Day Years [...] on file 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
--- OUTSIDE RECORDS SUMMARY | 2024-11-22 13:00 | XMS_ITS | Encounter Summary ---
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
--- OUTSIDE RECORDS SUMMARY | 2024-11-22 13:00 | XMS_ITS | Encounter Summary ---
Author Organization [facility] of [facility] Address [address] [place] [address] Phone Care Team Providers Care Timber Sizer Name Role Phone Josué Del Valle MD PhD Unavailable [phone] Kirt Lindsay DO Primary Care Provider [phone] Reason for Visit * Reason Onset Date Comments results/recommendations 09/21/2021 Encounter Details Date Type Department Care Team (Late st Contact Info) Description 09/21/[address] 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 in [address] Email: [email or web address] Office: [phone] Pager: [phone] From: Indy Baez <[email or web address]> Sent: Monday, September 20, 2021 9:38 AM To: Tay Charlton <[email or web address]>; Vee Drake <[email or web address]> Subject: FW: (secure) Suresh Jones [birth year] -----Original Message----- From: Rafat Hernandez <[email or web address]> Sent: Sunday, September 19, 2021 4:44 PM To: Indy Baez <[email or web address]> Subject: FW: documented in this encounter Plan of Treatment Not on file documented as of this encounter Visit Diagnoses Not on filedocumented in this encounter Care Teams Timber Sizer Relationship Specialty Start Date End Date Kirt Lindsay DO PCP - General Internal Medicine 02/02/21 Josué Del Valle MD PhD Medical Oncologist/Photoengraving Proofer Medical Oncology 08/26/19 documented as of this encounter
--- OUTSIDE RECORDS SUMMARY | 2024-11-22 13:01 | XMS_ITS | Encounter Summary ---
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 Number [facility] [place] [address] * Phosphorus (08/19/2021 12:33 AM CDT) Phosphorus, pl 3.1 2.3 - 4.5 mg/dL [facility] Blood 08/19/2021 12:3 3 AM CDT 08/19/2021 12:59 AM CDT Anjel Muniz MD LAB BLOOD ORDERABLES Fin al Result Performing Organization Address [facility] Co de Phone Number [facility] [place] [address] * Magnesium (08/19/2021 12:33 AM CDT) Magnesium 1.6 1.4 - 2.5 mg/dL [facility] Blood 08/19/2021 12:3 3 AM CDT 08/19/2021 12:59 AM CDT us Anjel Muniz MD LAB BLOOD ORDERABLES Fin al Result Performing Organization Address [facility] Co de Phone Number [facility] [place] [address] * (ABNORMAL) POCT glucose (08/18/2021 9:38 PM CDT) Glucose, POC 302(H) 70 - 199 mg/dL [facility] Blood 08/18/2021 9:38 PM CDT 08/18/2021 9:38 PM CDT us Josué Del Valle MD PhD LAB POCT ORDERABLES - DE VICE Final Result Performing Organization Address [facility] Co de Phone Number [facility] [place] [place] [address] * (ABNORMAL) POCT glucose (08/18/2021 4:48 PM CDT) Glucose, POC 297(H) 70 - 199 mg/dL [facility] Blood 08/18/2021 4:48 PM CDT 08/18/2021 4:48 PM CDT us Josué Del Valle MD PhD LAB POCT ORDERABLES - DE VICE Final Result Performing Organization Address [facility] Co de Phone Number [facility] Department [place] [address] * POCT glucose (08/18/2021 11:53 AM CDT) Glucose, POC 142 70 - 199 mg/dL [facility] Glucose comment 1 RN Notified [facility] Blood 08/18/2021 11:5 3 AM CDT 08/18/2021 11:53 AM CDT us Josué Del Valle MD PhD LAB POCT ORDERABLES - DE VICE Final Result Performing Organization Address [facility] [place] [address] * POCT glucose (08/18/2021 7:13 AM CDT) Glucose, POC 184 70 - 199 mg/dL [facility] Glucose comment 1 RN Notified [facility] Blood 08/18/2021 7:13 AM CDT 08/18/2021 7:13 AM CDT us Josué Del Valle MD PhD LAB POCT ORDERABLES - DE VICE Final Result Performing Organization Address [facility] [place] [address] * (ABNORMAL) eGFR (08/18/2021 12:37 AM CDT) eGFR 88(L) 90 - 130 mL/min/1.7 3 m2 [facility] Comment: Interpretive Data Reference Interval Normal ?>/= [...] MD LAB BLOOD ORDERABLES Fin al Result [facility] [place] [address] * (ABNORMAL) Manual Differential (08/18/2021 12:37 AM CDT) Differential Manual [facility] Cells Counted 115 [facility] Neutrophil abs 4.4 1.7 - 6.5 K/cumm [facility] Imm gran abs 0.0 0.0 - 0.1 K/cumm [facility] Lymphocyte abs 0.8 0.8 - 3.3 K/cumm [facility] Monocyte abs 0.0(L) 0.2 - 0.8 K/cumm [facility] Neutrophil pct 84.3 % [facility] Comment: Interpretive Data Percent cell count reference ranges are not reported, since discordance with absolute values may lead to misinterpretation of CBC data. Current Interpretive Data was last revised on 2018. Lymphocyte pct 12.2 % [facility] Comment: Interpretive Data Percent cell count reference ranges are not reported, since discordance with absolute values may lead to misinterpretation of CBC data. Current Interpretive Data was last revised on 2018. Monocyte pct 0.9 % [facility] Comment: Interpretive Data Percent cell count reference ranges are not reported, since discordance with absolute values may lead to misinterpretation of CBC data. Current Interpretive Data was last revised on 2018. Variant lymph pct 2.6 % [facility] RBC morphology Present(A) [facility] Anisocytosis Slight(A) [facility] Macrocytes 3-7/HPF(A) [facility] Platelet estimate Adequate [facility] Blood 08/18/2021 12:3 7 AM CDT 08/18/2021 12:47 AM CDT us Anjel Muniz MD LAB BLOOD ORDERABLES Arun tamiko Result - Final [facility] [place] [address] * (ABNORMAL) CBC without differential (08/18/2021 12:37 AM CDT) WBC 5.2 3.8 - 9.9 K/cumm [facility] Hgb 11.5(L) 13.0 - 17.5 g/dL [facility] Hct 33.3(L) 38.9 - 50.3 % [facility] Plt 227 150 - 400 K/cumm [facility] MPV 10.0 9.1 - 12.3 fL [facility] RBC 3.45(L) 4.30 - 5.80 M/cumm [facility] MCV 96.5(H) 81.3 - 96.4 fL [facility] MCH 33.3 27.1 - 33.3 pg [facility] MCHC 34.5 32.3 - 35.7 g/dL [facility] RDW CV 14.2 11.1 - 14.9 % [facility] RDW SD 50.3(H) 35.7 - 48.1 fL [facility] NRBC abs 0.00 0.00 - 0.01 K/cumm [facility] Blood 08/18/2021 12:3 7 AM CDT 08/18/2021 12:47 AM CDT Anjel Muniz MD LAB BLOOD ORDERABLES Fin al Result Performing Organization Address City/[facility]/ZIP Co de Phone Number [facility] Department [place] [address] * (ABNORMAL) Basic metabolic panel (08/18/2021 12:37 AM CDT) [facility] Sodium 136 135 - 145 mmol/L [facility] Potassium, pl 4.0 3.3 - 4.9 mmol/L [facility] Chloride 102 97 - 110 mmol/L [facility] CO2 30 22 - 32 mmol/L [facility] Anion gap 4 2 - 15 mmol/L [facility] BUN 19 8 - 25 mg/dL [facility] Creatinine 0.97 0.80 - 1.30 mg/dL [facility] Glucose 268(H) 70 - 199 mg/dL [facility] Comment: Interpretive Data Fasting glucose >/= [...] 2017. Calcium 8.7 8.5 - 10.3 mg/dL [facility] Blood 08/18/2021 12:3 7 AM CDT 08/18/2021 12:48 AM CDT Narrative [facility] - 08/18/2021 1:37 AM CDT Daily except Saturday and . Morning draw. Anjel Muniz MD LAB BLOOD ORDERABLES Fin al Result Performing Organization Address [facility]/ZIP Co de Phone Number [facility] [place] [address] * (ABNORMAL) Phosphorus (08/18/2021 12:37 AM CDT) Pathologist [facility] Phosphorus, pl 1.4(L) 2.3 - 4.5 mg/dL [facility] Blood 08/18/2021 12:3 7 AM CDT 08/18/2021 12:48 AM CDT us Anjel Muniz MD LAB BLOOD ORDERABLES [place] [address] * Magnesium (08/18/2021 12:37 AM CDT) [facility] Magnesium 1.6 1.4 - 2.5 mg/dL [facility] Blood 08/18/2021 12:3 7 AM CDT 08/18/2021 12:48 AM CDT Anjel Muniz MD LAB BLOOD ORDERABLES Fin al Result Performing Organization Address City/[facility]/ZIP Co de Phone Number [facility] Department [place] [address] * (ABNORMAL) POCT glucose (08/17/2021 8:36 PM CDT) [facility] Glucose, POC 289(H) 70 - 199 mg/dL [facility] Blood 08/17/2021 8:36 PM CDT 08/17/2021 8:36 PM CDT us Josué Del Valle MD PhD LAB POCT ORDERABLES - DE VICE Final Result Performing Organization Address City/[facility]/ZIP Co de Phone Number [facility] [place] [address] * aPTT (08/17/2021 5:21 PM CDT) aPTT 34 27 - 37 sec [facility] Comment: Interpretive Data Therapeutic heparin range: 60.0 - 94.0 seconds. Based on correlation with therapeutic heparin activity range of 0.3-0.7 Units/mL. Current interpretive data was last revised on 2021. Blood 08/17/2021 5:21 PM CDT 08/17/2021 5:26 PM CDT Anjel Muniz MD LAB BLOOD ORDERABLES Fin al Result Performing Organization Address [facility] Co de Phone Number [facility] [place] [address] * Potassium, whole blood (08/17/2021 5:21 PM CDT) [facility] Potassium, bld 3.8 3.3 - 4.9 mmol/L [facility] Comment: Interpretive Data Unable to assess hemolysis. ??Invitro hemolysis causes falsely elevated potassium. Current Interpretive Data was last revised on 2020. Blood 08/17/2021 5:21 PM CDT 08/17/2021 5:26 PM CDT Anjel Muniz MD LAB BLOOD ORDERABLES Fin al Result Performing Organization Address [facility] Co de Phone Number [facility] [place] [place] [address] * POCT glucose (08/17/2021 2:58 PM CDT) Pathologist [facility] Glucose, POC 112 70 - 199 mg/dL [facility] Blood 08/17/2021 2:58 PM CDT 08/17/2021 2:58 PM CDT Josué Del Valle MD PhD LAB POCT ORDERABLES - DE VICE Final Result Performing Organization Address [facility]/ZIP Co de Phone Number ZULEMA DENT Daniela [facility] [place] [address] * Blood culture Blood Forearm, left (08/17/2021 [...] organism identification may be performed using the [employer] Gram-Positive Blood Culture Assay. This assay detects microbial DNA in positive blood culture broth via hybridization of target DNA to capture oligonucleotides on a microarray. This assay has been cleared by the [place] Food and Drug Administration and its performance characteristics have been verified by the [facility]. 5. ?For questions about this culture, contact the Microbiology Laboratory at [phone]. Interpretive data was last revised on 2020. us Anjel Muniz MD LAB MICROBIOLOGY - GENER AL ORDERABLES Final Result Performing Organization Address City/[facility]/ZIP Co de Phone Number ZULEMA Suarez [facility] Department [place] [address] * eGFR (08/17/2021 2:15 PM CDT) Pathologist [facility] eGFR >90 90 - 130 mL/min/1.7 3 m2 [facility] Comment: Interpretive Data Reference Interval Normal [...] MD LAB BLOOD ORDERABLES Fin al Result [facility] [place] [address] * (ABNORMAL) Manual Differential (08/17/2021 2:15 PM CDT) Differential Manual [facility] Cells Counted [address] [facility] Neutrophil abs 5.1 1.7 - 6.5 K/cumm [facility] Imm gran abs 0.0 0.0 - 0.1 K/cumm [facility] Lymphocyte abs 1.5 0.8 - 3.3 K/cumm [facility] Monocyte abs 0.7 0.2 - 0.8 K/cumm [facility] Basophil abs 0.1 0.0 - 0.1 K/cumm [facility] Neutrophil pct 69.1 % [facility] Comment: Interpretive Data Percent cell count reference ranges are not reported, since discordance with absolute values may lead to misinterpretation of CBC data. Current Interpretive Data was last revised on 2018. Lymphocyte pct 18.2 % [facility] Comment: Interpretive Data Percent cell count reference ranges are not reported, since discordance with absolute values may lead to misinterpretation of CBC data. Current Interpretive Data was last revised on 2018. Monocyte pct 9.1 % [facility] Comment: Interpretive Data Percent cell count reference ranges are not reported, since discordance with absolute values may lead to misinterpretation of CBC data. Current Interpretive Data was last revised on 2018. Basophil pct 1.8 % [facility] Comment: Interpretive Data Percent cell count reference ranges are not reported, since discordance with absolute values may lead to misinterpretation of CBC data. Current Interpretive Data was last revised on 2018. Variant lymph pct 1.8 % [facility] RBC morphology Present(A) [facility] Anisocytosis Moderate(A) [facility] Poikilocytosis Slight(A) [facility] Macrocytes 8-15/HPF(A) [facility] Platelet estimate Adequate [facility] Blood 08/17/2021 2:15 PM CDT 08/17/2021 2:48 PM CDT us Anjel Muniz MD LAB BLOOD ORDERABLES Fin al Result [facility] [place] [address] * (ABNORMAL) CBC without differential (08/17/2021 2:15 PM CDT) WBC 7.4 3.8 - 9.9 K/cumm [facility] Hgb 12.6(L) 13.0 - 17.5 g/dL [facility] Hct 36.2(L) 38.9 - 50.3 % [facility] Plt 249 150 - 400 K/cumm [facility] MPV 10.9 9.1 - 12.3 fL [facility] RBC 3.66(L) 4.30 - 5.80 M/cumm [facility] MCV 98.9(H) 81.3 - 96.4 fL [facility] MCH 34.4(H) 27.1 - 33.3 pg [facility] MCHC 34.8 32.3 - 35.7 g/dL [facility] RDW CV 14.6 11.1 - 14.9 % [facility] RDW SD 52.6(H) 35.7 - 48.1 fL [facility] NRBC abs 0.00 0.00 - 0.01 K/cumm [facility] Blood 08/17/2021 2:15 PM CDT 08/17/2021 2:48 PM CDT Anjel Muniz MD LAB BLOOD ORDERABLES Fin al Result Performing Organization Address City/State/[facility] Co de Phone Number [facility] One [facility] [place] [address] * Blood culture Blood Forearm, right (08/17/2021 2:15 PM CDT) Pathologist [facility] Report Final Report: No growth [facility] Blood (Forearm, right) 08/17/2021 2:15 PM CDT 08/17/2021 2:42 PM CDT Narrative [facility] - 08/21/2021 4:00 PM CDT 1. ?Blood [...] organism identification may be performed using the [employer] Gram-Positive Blood Culture Assay. This assay detects microbial DNA in positive blood culture broth via hybridization of target DNA to capture oligonucleotides on a microarray. This assay has been cleared by the [place] Food and Drug Administration and its performance characteristics have been verified by the [facility]. 5. ?For questions about this culture, contact the Microbiology Laboratory at [phone]. Interpretive data was last revised on 2020. Anjel Muniz MD LAB MICROBIOLOGY - [facility] ORDERABLES Final Result [facility] One [facility] [place] [address] * (ABNORMAL) Urinalysis reflex to microscopic and [...] for microscopic UA and culture not met. [facility]rine, clean voided 08/17/2021 2:15 PM CDT 08/17/2021 2:38 PM CDT Narrative [facility] - 08/17/2021 2:47 PM CDT ?? Urine pH is affected by diet, medications, systemic acid-base disturbances, and renal tubular function. ??pH may affect urinary stone formation. ??For example, urine pH below 6.0 may help reduce the tendency for calcium phosphate stones and pH greater than 6.0 may reduce the tendency for uric acid stone formation. Source: [place] [employer]. Last revised 11-28-2017 Anjel Muniz MD LAB MICROBIOLOGY - GENER AL ORDERABLES Final Result Performing Organization Address City/[facility] Co de Phone Number [facility] [place] [address] * Type and screen (08/17/2021 2:15 PM CDT) Ursula, indirect Negative [facility] ABO Rh A Positive [facility] Blood 08/17/2021 2:15 PM CDT 08/17/2021 2:46 PM CDT Narrative [facility] - 08/17/2021 3:44 PM CDT Has the patient had Daratumumab or Isatuximab in the past 6 months?->Unknown Anjel Muniz MD LAB BLOOD BANK TEST ORDE RABLES Final Result Performing Organization Address City/[facility] Co de Phone Number [facility] [place] [address] * Phosphorus (08/17/2021 2:15 PM CDT) Pathologist [facility] Phosphorus, pl 3.0 2.3 - 4.5 mg/dL [facility] Comment:Hemolyzed; result ma y be falsely elevated Blood 08/17/2021 2:15 PM CDT 08/17/2021 2:49 PM CDT Anjel Muniz MD LAB BLOOD ORDERABLES Fin al Result Performing Organization Address City/[facility]/ZIP Co de Phone Number [facility] One [facility] [place] [address] * Magnesium (08/17/2021 2:15 PM CDT) Pathologist [facility] Magnesium 1.7 1.4 - 2.5 mg/dL [facility] Blood 08/17/2021 2:15 PM CDT 08/17/2021 2:49 PM CDT Anjel Muniz MD LAB BLOOD ORDERABLES Fin al Result Performing Organization Address [facility] de Phone Number [facility] One [facility] [place] [address] * (ABNORMAL) Comprehensive metabolic panel (08/17/2021 2:15 PM CDT) Pathologist [facility] Sodium 136 135 - 145 mmol/L [facility] Potassium, pl See Comment 3.3 - 4.9 mmol/L [facility] Comment:Credited; Hemolyzed Specimen Chloride 100 97 - 110 mmol/L [facility] CO2 28 22 - 32 mmol/L [facility] Anion gap 8 2 - 15 mmol/L [facility] BUN 11 8 - 25 mg/dL [facility] Creatinine 0.82 0.80 - 1.30 mg/dL [facility] Glucose 149 70 - 199 mg/dL [facility] Comment: Interpretive Data Fasting glucose >/= [...] 2017. Calcium 8.6 8.5 - 10.3 mg/dL [facility] Bilirubin, total 0.5 0.1 - 1.2 mg/dL [facility] Protein, pl 7.6 6.5 - 8.5 g/dL [facility] Albumin 3.7 3.5 - 5.0 g/dL [facility] Alk phos 169(H) 40 - 130 Units/L [facility] Comment:Hemolyzed; result ma y be falsely decreased ALT See Comment 7 - 55 Units/L [facility] Comment:Credited; Hemolyzed Specimen AST See Comment 10 - 50 Units/L [facility] Comment:Credited; Hemolyzed Specimen Blood 08/17/2021 2:15 PM CDT 08/17/2021 2:49 PM CDT us Anjel Muniz MD LAB BLOOD ORDERABLES Fin al Result Performing Organization Address City/State/[facility] Co de Phone Number [facility] [place] [address] * ECG 12 lead (08/17/2021 1:08 PM CDT) Pathologist [facility] Ventricular Rate EKG/Min 63 BPM [facility] Atrial Rate 63 BPM [facility] HI-Interval (MSEC) 138 ms [facility] QRS-Interval (MSEC) 90 ms [facility] QT-Interval (MSEC) 422 ms [facility] QTc 431 ms [facility] [facility] [place] 74 degrees [facility] [place] 97 degrees [facility] T [place] 88 degrees [facility] Diagnosis Normal sinus rhythm Rightward axis Borderline ECG When compared with ECG of 25-NOV-2019 13:31, HI interval has increased T wave amplitude has increased in Lateral leads Confirmed by SOHAM WINTERS M.D ([id number]) on 08/21/2021 8:55:14 AM [facility] 08/17/2021 1:08 PM CDT 08/21/2021 8:55 AM CDT us Anjel Muniz MD ECG ORDERABLES Final Re sult [facility] * X-ray chest 1 view (Portable) (08/17/2021 [...] Influenza A RNA Not Detected Not Detected [facility] Influenza B RNA Not Detected Not Detected [facility] RSV RNA Not Detected Not Detected [facility] COVID-19 RNA Not Detected Not Detected [facility] Coronavirus 229E RNA Not Detected Not Detected [facility] Coronavirus HKU1 RNA Not Detected Not Detected [facility] Coronavirus NL63 RNA Not Detected Not Detected [facility] Coronavirus OC43 RNA Not Detected Not Detected [facility] Adenovirus DNA Not Detected Not Detected [facility] Metapneumovirus RNA Not Detected Not Detected [facility] Rhinovirus/Enterov irus RNA Detected(A) Not Detected [facility] Parainfluenza 1 RNA Not Detected Not Detected [facility] Parainfluenza 2 RNA Not Detected Not Detected [facility] Parainfluenza 3 RNA Not Detected Not Detected [facility] Parainfluenza 4 RNA Not Detected Not Detected [facility] B. pertussis DNA Not Detected Not Detected [facility] B. parapertussis DNA Not Detected Not Detected [facility] C. pneumoniae DNA Not Detected Not Detected [facility] M. pneumoniae DNA Not Detected Not Detected [facility] Employeed in healthcare? Unknown [facility] status[facility] No [facility] Group care resident? No [facility] Hospitalized? Yes [facility] Is patient in ICU? No [facility] Symptomatic as defined by CDC? Yes [facility] Nasopharyngeal 08/17/2021 11 :45 AM CDT 08/17/2021 12:35 PM CDT Narrative [facility] - 08/17/2021 2:16 PM CDT Date of Symptom Onset->08/17/21 Reason for testing?->Symptomatic (immunocompromised) Known exposure to confirmed or suspected COVID-19 case?->Yes Surveillance testing for transplant patient?->No ??Interpretive Data [employer] FilmArray Respiratory Panel (RP2.1) assay is a [...] assay has FDA clearance for testing of COUNTER SUPPLY WORKER swabs. ??The performance characteristics of this assay have been determined by [facility]. Current interpretive data was last revised on 2021. ??Interpretive Data [employer] FilmArray Respiratory Panel (RP2.1) assay is a [...] assay has FDA clearance for testing of COUNTER SUPPLY WORKER swabs. ??The performance characteristics of this assay have been determined by [facility]. Current interpretive data was last revised on 2021. Benita Mckinnon MD LAB MICROBIOLOGY - G ENERAL ORDERABLES Final Result 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 PROOF 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 STATES GLUTOSE-15 CONTAINS GLUCOSE 40% W/W (50% W/V), Indications: hypoglycemic disorderIndications:hypoglycemic disorder cqhucpkbtko-hgiihumjc-acbgfpmp (TRELEGY ELLIPTA) 100-62.5-25 mcg inhaler 1 puff 1 puff, inhalation, Daily (newspaper correspondent), First dose on Angy 08/17/21 at 1315, Rinse mouth with water after use. Do not swallow., Indications: Bronchospasm Prevention with COPDIndications:Bronchospasm Prevention with COPD Given 08/19/2021 12:35 PM CDT 1 puff gabapentin (NEURONTIN) capsule 400 mg 400 mg, oral, 3 times daily, First dose on Agny 08/17/21 at 1600, Do not crush, break, [...] Units, subcutaneous, Every morning, First dose on [facility] 08/17/21 at 1315, Do not mix [...] meals, First dose (after last modification) on [facility] 08/19/21 at 1200 Given 08/19/2021 12:19 PM [...] mg 0.5 mg, nebulization, Every 6 hours (newspaper correspondent), First dose on Angy 08/17/21 at 1330 [...] 1) 2.5 mg, nebulization, Every 6 hours (newspaper correspondent), First dose on Angy 08/17/21 at 1330 1400 (Not Given - Provider: Jaeml Granados, BRANDEN - Reason: Other - Comment: patient not seen)1728 (Given - Provider: Jamel Granados, ELECTRIC GAS APPLIANCES DEMONSTRATOR)2259 (Given - Provider: Daria Phillips ELECTRIC GAS APPLIANCES DEMONSTRATOR) 0433 (Given - Provider: Daria Phillips ELECTRIC GAS APPLIANCES DEMONSTRATOR)1127 (Given - Provider: Jamel Granados, ELECTRIC GAS APPLIANCES DEMONSTRATOR)1728 (Given - Provider: Jamel Granados, ELECTRIC GAS APPLIANCES DEMONSTRATOR) 0015 (Given - Provider: Daria Phillips, ELECTRIC GAS APPLIANCES DEMONSTRATOR)0444 (Given - Provider: Daria Phillips RRT)1234 (Given - Provider: Marisa Willams, BELLPERSON) atorvastatin (LIPITOR) tablet 40 mg 40 mg, [...] RN) 0558 (New Bag - Provider: Arleen Lwoe RN)0628 (Stopped - Provider: Arleen Lowe, BECKI)1358 (Not Given - Provider: Izabela Major RN - Reason: Other - Comment: ok not to give per MD Mckinnon, patient admitted for COPD exacerbation.) cholecalciferol (VITAMIN D-3) capsule 2,000 Units 2,000 Units, oral, Daily, First dose on Sat08/18/21 at 1530 1643 (Given - Provider: Ramonita Chilel RN) 0903 (Given - Provider: Izabela Major, BECKI) thdhotlbtip-hughpribp-vxckky er (TRELEGY ELLIPTA) 100-62.5-25 mcg inhaler 1 puff 1 puff, inhalation, Daily (newspaper correspondent), First dose on Angy 08/17/21 at 1315, [...] now )1235 (Given - Provider: Marisa Willams, BELLPERSON) gabapentin (NEURONTIN) capsule 400 mg 400 mg, [...] BECKI) 0728 (Given - Provider: Arleen Lowe, BECKI) ipratropium (ATROVENT) 0.02 % nebulizer solution 0.5 mg(Linked Group 1) 0.5 mg, nebulization, Every 6 hours (newspaper correspondent), First dose on Angy 08/17/21 at 1330 1400 (Not Given - Provider: Jamel Granados RRT - Reason: Other - Comment: patient not seen)1728 (Given - Provider: Jamel Granados, ELECTRIC GAS APPLIANCES DEMONSTRATOR)2259 (Given - Provider: Daria Phillips RRT) 0434 (Given - Provider: Daria Phillips RRT)1127 (Given - Provider: Jamel Granados ELECTRIC GAS APPLIANCES DEMONSTRATOR)1728 (Given - Provider: Jamel Granados ELECTRIC GAS APPLIANCES DEMONSTRATOR) 0015 (Given - Provider: Daria Phillips RRT)0445 (Given - Provider: Daria Phillips RRT)1234 (Given - Provider: Marisa Willams BELLPERSON) montelukast (SINGULAIR) tablet 10 mg 10 mg, [...] Provider: Ramonita Chilel RN)1249 (Given - Provider: Rmaonita Chilel RN)1643 (Given - Provider: Ramonita Chilel [...] at 1214, Indications: Fever aluminum & magnesium rbhfilmsg-twswcyqddny-fltwbyhuzgahd ne-lidocaine (MAGIC MOUTHWASH) suspension 1-1-1 15 mL, [...] Call MD for each episode of hypoglycemia. PROOF 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 STATES GLUTOSE-15 CONTAINS GLUCOSE 40% [...] med 2.5 mg, nebulization, Every 6 hours (newspaper correspondent), First dose on Angy 08/17/21 at 1330 And ipratropium (ATROVENT) 0.02 % nebulizer solution 0.5 mgJump to med 0.5 mg, nebulization, Every 6 hours (newspaper correspondent), First dose on Angy 08/17/21 at 1330 [...] Call MD for each episode of hypoglycemia. PROOF 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 STATES GLUTOSE-15 CONTAINS GLUCOSE 40% [...] tablet 650 mg 2 aluminum & magnesium jkrmrnzmx-qagdbovaqrt-cunsvdcaegviefd-lido aida (MAGIC MOUTHWASH) suspension 1-1-1 1 08/17/2021 [...] documented as of this encounter Care Teams Terminal Manager Relationship Specialty Start Date End Date Kirt Lindsay DO PCP - General Internal Medicine 02/02/21 Josué Del Valle MD PhD Medical Oncologist/Software Developer Consultant Medical Oncology 08/26/19 documented as of this encounter
--- OUTSIDE RECORDS SUMMARY | 2024-11-22 13:01 | XMS_ITS | Encounter Summary ---
Author Organization [facility] Address [address] [place] [address] Phone Care Team Providers Care Inside Sales Specialist Name Role Phone Josué Del Valle MD PhD Unavailable [phone] Kirt Lindsay DO Primary Care Provider [phone] Reason for Visit * Reason Onset Date Comments Schedule GI Procedure 09/08/2021 Encounter Details Date Type Department Care Team (Late st Contact Info) Description 09/08/2021 Telephone [facility] [address] 8th [place] [address] [place] [address] Daya Dailey LPN Schedule GI [...] file 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 OK for patient to hold xarelto x 2 days prior to procedure. LMOVM with instructions. STANT OFFICE MANAGER * Telephone Encounter - Daya Dailey LPN - 09/28/2021 1:25 PM CST Called and spoke with Mellisa with Dr. Del Valle's office. Awaiting written instructions on patient'shold order. STANT OFFICE MANAGER * Telephone Encounter - Daya Dailey LPN - 09/25/2021 9:[address] Ayala's office to get recommendations and LM for someone to c/b. STANT OFFICE MANAGER * Telephone Encounter - Daya Dailey [...] None ENDOCRINE: None PRIOR PROCEDURE ISSUES: None REGISTERED RADIATION THERAPIST/: NA IMPLANTS.: None Notes: DIABETIC MEDS Y/N: [...] Dr. Del Valle Hold order Method sent: Zhitu Fax Date hold received: Hold instructions: CONTINUE ASPIRIN INFORMATION REQUESTED []Imaging: []Medical Progress Note/H&P []Medication list []Other: PATIENT OPTIMIZATION []Physician reviewing escalation: []CPAP: Date scheduled: Outcome : [] Location limitations: Scheduling Scheduling location limitations: Raw Sampler needed [] NA Language: POA [] NA Name: SPECIAL PROCEDURE INSTRUCTIONS Scheduling Notes Procedure information Date of procedure: 10/03/2021 Time of procedure: 0900 Arrival time: 0800 Location: [facility] Proceduralist: Zoltan Instructions Method of instructions: Mailed copy and Verbal [x]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 ride/director prospect [x]Post anesthesia restrictions given [x]NPO Instructions: [x]Diet [...] tract documented in this encounter Care Teams Inside Sales Specialist Relationship Specialty Start Date End Date Kirt Lindsay DO PCP - General Internal Medicine 02/02/21 Josué Del Valle MD PhD Medical Oncologist/Sterile Instrument Technician Medical Oncology 08/26/19 documented as of this encounter
--- OUTSIDE RECORDS SUMMARY | 2024-11-22 13:01 | XMS_ITS | Encounter Summary ---
Author Organization [facility] Address [address] [place] [address] Phone Care Team Providers Care Hand Stone Polisher Name Role Phone Josué Del Valle MD PhD Unavailable [phone] Kirt Lindsay DO Primary Care Provider [phone] Encounter Details Date Type Department Care Team (Late st Contact Info) Description 08/21/2021 Telephone [facility] [address] [facility] 7th [place] [address] [place] [address] Dolly Dockery Social History Tobacco [...] on file 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 documented in this encounter [...] documented as of this encounter Care Teams Hand Stone Polisher Relationship Specialty Start Date End Date Kirt Lindsay DO PCP - General Internal Medicine 02/02/21 Josué Del Valle MD PhD Medical Oncologist/Nursing Surgical Services Director Medical Oncology 08/26/19 documented as of this encounter
--- OUTSIDE RECORDS SUMMARY | 2024-11-22 13:01 | XMS_ITS | Encounter Summary ---
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 3-7/HPF(A) [facility] Platelet estimate Decreased( A) [facility] Blood 09/10/2021 12:5 4 AM CDT 09/10/2021 1:26 AM CDT Jerry Carpenter MD LAB BLOOD ORDERABLES Edited Resu lt - Final [facility] [place] [address] * (ABNORMAL) CBC without differential (09/10/2021 12:54 AM CDT) WBC 18.9(H) 3.8 - 9.9 K/cumm [facility] Hgb 12.7(L) 13.0 - 17.5 g/dL [facility] Hct 37.8(L) 38.9 - 50.3 % [facility] Plt 115(L) 150 - 400 K/cumm [facility] MPV 11.1 9.1 - 12.3 fL [facility] RBC 3.81(L) 4.30 - 5.80 M/cumm [facility] MCV 99.2(H) 81.3 - 96.4 fL [facility] MCH 33.3 27.1 - 33.3 pg [facility] MCHC 33.6 32.3 - 35.7 g/dL [facility] RDW CV 15.9(H) 11.1 - 14.9 % [facility] RDW SD 55.5(H) 35.7 - 48.1 fL [facility] NRBC abs 0.68(H) 0.00 - 0.01 K/cumm [facility] Blood 09/10/2021 12:5 4 AM CDT 09/10/2021 1:26 AM CDT Jerry Carpenter MD LAB BLOOD ORDERABLES Final Resul t [facility] [place] [address] * Lipase (09/10/2021 12:54 AM CDT) Lipase 37 10 - 99 Units/L [facility] Blood 09/10/2021 12:5 4 AM CDT 09/10/2021 1:26 AM CDT us Jerry Carpenter MD LAB BLOOD ORDERABLES Final Resul t [facility] [place] [address] * (ABNORMAL) Comprehensive metabolic panel (09/10/2021 12:54 AM CDT) Pathologist [facility] Sodium 139 135 - 145 mmol/L [facility] Potassium, pl 3.6 3.3 - 4.9 mmol/L [facility] Chloride 98 97 - 110 mmol/L [facility] CO2 29 22 - 32 mmol/L [facility] Anion gap 12 2 - 15 mmol/L [facility] BUN 12 8 - 25 mg/dL [facility] Creatinine 0.84 0.80 - 1.30 mg/dL [facility] Glucose 145 70 - 199 mg/dL [facility] Comment: Interpretive Data Fasting glucose >/= [...] Calcium 9.0 8.5 - 10.3 mg/dL [facility] Bilirubin, total 2.0(H) 0.1 - 1.2 mg/dL [facility] Protein, pl 7.0 6.5 - 8.5 g/dL [facility] Albumin 3.4(L) 3.5 - 5.0 g/dL [facility] Alk phos 511(H) 40 - 130 Units/L [facility] ALT 823(H) 7 - 55 Units/L [facility] AST 86(H) 10 - 50 Units/L [facility] Blood 09/10/2021 12:5 4 AM CDT 09/10/2021 1:26 AM CDT us Jerry Carpenter MD LAB BLOOD ORDERABLES Final Resul t Performing Organization Address [facility] de Phone Number [facility] [place] [address] * Tacrolimus level trough (09/10/2021 12:54 AM CDT) Tacrolimus trough 2.9 ng/mL [facility] Comment: Interpretive Data Testing performed by liquid chromatography-tandem mass spectrometry. ??Therapeutic concentrations vary depending on type of transplanted organ and time elapsed since transplant. ??Typical trough concentrations range from 5-15 ng/mL. ??This test was developed and its performance characteristics determined by the [facility] consistent with CLIA requirements. ??This test has not been cleared or approved by the [place] Food and Drug administration. ??Current interpretive data last reviewed 2020. Blood 09/10/2021 12:5 4 AM CDT 09/10/2021 1:26 AM CDT Narrative [facility] - 09/10/2021 7:20 AM CDT Draw within 30 minutes of AM dose. us Jerry Carpenter MD LAB BLOOD ORDERABLES Final Resul t Performing Organization Address [facility] de Phone Number [facility] [place] [address] * Phosphorus (09/10/2021 12:54 AM CDT) Phosphorus, pl 2.6 2.3 - 4.5 mg/dL [facility] Blood 09/10/2021 12:5 4 AM CDT 09/10/2021 1:26 AM CDT us Jerry Carpenter MD LAB BLOOD ORDERABLES Final Resul t Performing Organization Address [facility]/[place] [address] * Magnesium (09/10/2021 12:54 AM CDT) Magnesium 1.6 1.4 - 2.5 mg/dL [facility] Blood 09/10/2021 12:5 4 AM CDT 09/10/2021 1:26 AM CDT Jerry Carpenter MD LAB BLOOD ORDERABLES Final Resul t Performing Organization Address City/[facility] [place] [address] * POCT glucose (09/09/2021 9:37 PM CDT) Glucose, POC 171 70 - 199 mg/dL [facility] Blood 09/09/2021 9:37 PM CDT 09/09/2021 9:37 PM CDT Anaid Kruse MD LAB POCT ORDERABLES - DEVICE Final Result Performing Organization Address City/[facility] Co de Phone Number [facility] [place] [address] * POCT glucose (09/09/2021 7:01 PM CDT) Glucose, POC 180 70 - 199 mg/dL [facility] Blood 09/09/2021 7:01 PM CDT 09/09/2021 7:01 PM CDT Anaid Kruse MD LAB POCT ORDERABLES - DEVICE Final Result Performing Organization Address City/[facility]/ZIP Co de Phone Number [facility] [place] [address] * POCT glucose (09/09/2021 12:10 PM CDT) Glucose, POC 114 70 - 199 mg/dL [facility] Blood 09/09/2021 12:1 0 PM CDT 09/09/2021 12:10 PM CDT Anaid Kruse MD LAB POCT ORDERABLES - DEVICE Final Result Performing Organization Address [facility] de Phone Number [facility] [place] [address] * POCT glucose (09/09/2021 8:10 AM CDT) Glucose, POC 119 70 - 199 mg/dL [facility] Blood 09/09/2021 8:10 AM CDT 09/09/2021 8:10 AM CDT Anaid Kruse MD LAB POCT ORDERABLES - DEVICE Final Result Performing Organization Address [facility] [place] [address] * (ABNORMAL) eGFR (09/09/2021 3:10 AM CDT) eGFR 85(L) 90 - 130 mL/min/1.7 3 m2 [facility] Comment: Interpretive Data Reference Interval Normal [...] Kruse MD LAB BLOOD ORDERABLES Final Result [facility] [place] [address] * (ABNORMAL) Comprehensive metabolic panel (09/09/2021 3:10 AM CDT) Pathologist [facility] Sodium 137 135 - 145 mmol/L [facility] Potassium, pl 3.7 3.3 - 4.9 mmol/L [facility] Chloride 97 97 - 110 mmol/L [facility] CO2 30 22 - 32 mmol/L [facility] Anion gap 10 2 - 15 mmol/L [facility] BUN 23 8 - 25 mg/dL [facility] Creatinine 1.00 0.80 - 1.30 mg/dL [facility] Glucose 159 70 - 199 mg/dL [facility] Comment: Interpretive Data Fasting glucose >/= [...] 2017. Calcium 8.9 8.5 - 10.3 mg/dL [facility] Bilirubin, total 1.9(H) 0.1 - 1.2 mg/dL [facility] Protein, pl 6.4(L) 6.5 - 8.5 g/dL [facility] Albumin 3.2(L) 3.5 - 5.0 g/dL [facility] Alk phos 303(H) 40 - 130 Units/L [facility] ALT 1,057(H) 7 - 55 Units/L [facility] AST 98(H) 10 - 50 Units/L [facility] Blood 09/09/2021 3:10 AM CDT 09/09/2021 3:22 AM CDT us Anaid Kruse MD LAB BLOOD ORDERABLES Final Result Performing Organization Address City/[facility] Co de Phone Number [facility] [place] [address] * (ABNORMAL) Phosphorus (09/09/2021 3:10 AM CDT) Phosphorus, pl 0.9(L) 2.3 - 4.5 mg/dL [facility] Blood 09/09/2021 3:10 AM CDT 09/09/2021 3:22 AM CDT Anaid Kruse MD LAB BLOOD ORDERABLES Final Result [facility] [place] [address] * Magnesium (09/09/2021 3:10 AM CDT) Magnesium 1.5 1.4 - 2.5 mg/dL [facility] Blood 09/09/2021 3:10 AM CDT 09/09/2021 3:22 AM CDT us Anaid Kruse MD LAB BLOOD ORDERABLES Final Result [facility] [place] [address] * Lipase (09/09/2021 3:10 AM CDT) [facility] Lipase 95 10 - 99 Units/L [facility] Blood 09/09/2021 3:10 AM CDT 09/09/2021 3:22 AM CDT Anaid Kruse MD LAB BLOOD ORDERABLES Final Result Performing Organization Address [facility] Co de Phone Number [facility] [place] [address] * (ABNORMAL) Manual Differential (09/09/2021 12:35 AM CDT) [facility] Differential Manual [facility] Cells Counted 114 [facility] Neutrophil abs 14.8(H) 1.7 - 6.5 K/cumm [facility] Imm gran abs 0.0 0.0 - 0.1 K/cumm [facility] Lymphocyte abs 1.0 0.8 - 3.3 K/cumm [facility] Monocyte abs 0.3 0.2 - 0.8 K/cumm [facility] Eosinophil abs 0.2 0.0 - 0.5 K/cumm [facility] Neutrophil pct 91.2 % [facility] Comment: Interpretive Data Percent cell count reference ranges are not reported, since discordance with absolute values may lead to misinterpretation of CBC data. Current Interpretive Data was last revised on 2018. Lymphocyte pct 6.1 % [facility] Comment: Interpretive Data Percent cell count reference ranges are not reported, since discordance with absolute values may lead to misinterpretation of CBC data. Current Interpretive Data was last revised on 2018. Monocyte pct 1.8 % [facility] Comment: Interpretive Data Percent cell count reference ranges are not reported, since discordance with absolute values may lead to misinterpretation of CBC data. Current Interpretive Data was last revised on 2018. Eosinophil pct 0.9 % [facility] Comment: Interpretive Data Percent cell count reference ranges are not reported, since discordance with absolute values may lead to misinterpretation of CBC data. Current Interpretive Data was last revised on 2018. RBC morphology Present(A) [facility] Anisocytosis Moderate(A ) [facility] Poikilocytosis Moderate(A ) [facility] Macrocytes 8-15/HPF(A ) [facility] Platelet estimate Decreased( A) [facility] Blood 09/09/2021 12:3 5 AM CDT 09/09/2021 12:53 AM CDT us Jerry Carpenter MD LAB BLOOD ORDERABLES Edited Resu lt - Final [facility] [place] [address] * (ABNORMAL) CBC without differential (09/09/2021 12:35 AM CDT) WBC 16.2(H) 3.8 - 9.9 K/cumm [facility] Hgb 12.2(L) 13.0 - 17.5 g/dL [facility] Hct 33.7(L) 38.9 - 50.3 % [facility] Plt 122(L) 150 - 400 K/cumm [facility] MPV 14.0(H) 9.1 - 12.3 fL [facility] RBC 3.40(L) 4.30 - 5.80 M/cumm [facility] MCV 99.1(H) 81.3 - 96.4 fL [facility] MCH 35.9(H) 27.1 - 33.3 pg [facility] MCHC 36.2(H) 32.3 - 35.7 g/dL [facility] RDW CV 16.7(H) 11.1 - 14.9 % [facility] RDW SD 57.6(H) 35.7 - 48.1 fL [facility] NRBC abs 0.67(H) 0.00 - 0.01 K/cumm [facility] Blood 09/09/2021 12:3 5 AM CDT 09/09/2021 12:53 AM CDT Jerry Carpenter MD LAB BLOOD ORDERABLES Final Resul t Performing Organization Address City/[facility] Co de Phone Number [facility] [place] [address] * POCT glucose (09/08/2021 9:24 PM CDT) Glucose, POC 150 70 - 199 mg/dL [facility] Blood 09/08/2021 9:24 PM CDT 09/08/2021 9:24 PM CDT Anaid Kruse MD LAB POCT ORDERABLES - DEVICE Final Result Performing Organization Address City/[facility] Co de Phone Number [facility] [place] [address] * POCT glucose (09/08/2021 5:56 PM CDT) Glucose, POC 143 70 - 199 mg/dL [facility] Blood 09/08/2021 5:56 PM CDT 09/08/2021 5:56 PM CDT Anaid Kruse MD LAB POCT ORDERABLES - DEVICE Final Result Performing Organization Address City/[facility] Co de Phone Number [facility] [place] [address] * POCT glucose (09/08/2021 12:30 PM CDT) Glucose, POC 162 70 - 199 mg/dL [facility] Blood 09/08/2021 12:3 0 PM CDT 09/08/2021 12:30 PM CDT Anaid Kruse MD LAB POCT ORDERABLES - DEVICE Final Result Performing Organization Address [facility] Co de Phone Number [facility] [place] [address] * POCT glucose (09/08/2021 8:58 AM CDT) Glucose, POC 109 70 - 199 mg/dL [facility] Blood 09/08/2021 8:58 AM CDT 09/08/2021 8:58 AM CDT Anaid Kruse MD LAB POCT ORDERABLES - DEVICE Final Result Performing Organization Address [facility] de Phone Number [facility] [place] [address] * eGFR (09/08/2021 4:47 AM CDT) eGFR >90 90 - 130 mL/min/1.7 3 m2 [facility] Comment: Interpretive Data Reference Interval Normal [...] MD LAB BLOOD ORDERABLES Final Resul t [facility] [place] [address] * (ABNORMAL) Manual Differential (09/08/2021 4:47 AM CDT) Differential Manual [facility] Cells Counted 114 [facility] Neutrophil abs 14.1(H) 1.7 - 6.5 K/cumm [facility] Imm gran abs 0.0 0.0 - 0.1 K/cumm [facility] Lymphocyte abs 1.4 0.8 - 3.3 K/cumm [facility] Monocyte abs 0.1(L) 0.2 - 0.8 K/cumm [facility] Eosinophil abs 0.3 0.0 - 0.5 K/cumm [facility] Neutrophil pct 88.5 % [facility] Comment: Interpretive Data Percent cell count reference ranges are not reported, since discordance with absolute values may lead to misinterpretation of CBC data. Current Interpretive Data was last revised on 2018. Lymphocyte pct 8.8 % [facility] Comment: Interpretive Data Percent cell count reference ranges are not reported, since discordance with absolute values may lead to misinterpretation of CBC data. Current Interpretive Data was last revised on 2018. Monocyte pct 0.9 % [facility] Comment: Interpretive Data Percent cell count reference ranges are not reported, since discordance with absolute values may lead to misinterpretation of CBC data. Current Interpretive Data was last revised on 2018. Eosinophil pct 1.8 % [facility] Comment: Interpretive Data Percent cell count reference ranges are not reported, since discordance with absolute values may lead to misinterpretation of CBC data. Current Interpretive Data was last revised on 2018. RBC morphology Present(A) [facility] Polychromasia 3-7/HPF(A) [facility] Anisocytosis Marked(A) [facility] Poikilocytosis Moderate(A ) [facility] Macrocytes > 15/HPF(A) [facility] Schistocytes 1-2/HPF(A) [facility] Target cells 8-15/HPF(A ) [facility] Platelet estimate Decreased( A) [facility] Blood 09/08/2021 4:47 AM CDT 09/08/2021 5:17 AM CDT us Jerry Carpenter MD LAB BLOOD ORDERABLES Edited Resu lt - Final [facility] [place] [address] * (ABNORMAL) CBC without differential (09/08/2021 4:47 AM CDT) WBC 15.9(H) 3.8 - 9.9 K/cumm [facility] Hgb 11.1(L) 13.0 - 17.5 g/dL [facility] Hct 31.2(L) 38.9 - 50.3 % [facility] Plt 126(L) 150 - 400 K/cumm [facility] MPV 11.5 9.1 - 12.3 fL [facility] RBC 3.21(L) 4.30 - 5.80 M/cumm [facility] MCV 97.2(H) 81.3 - 96.4 fL [facility] MCH 34.6(H) 27.1 - 33.3 pg [facility] MCHC 35.6 32.3 - 35.7 g/dL [facility] RDW CV 15.0(H) 11.1 - 14.9 % [facility] RDW SD 53.4(H) 35.7 - 48.1 fL [facility] NRBC abs 0.42(H) 0.00 - 0.01 K/cumm [facility] Blood 09/08/2021 4:47 AM CDT 09/08/2021 5:17 AM CDT us Jerry Carpenter MD LAB BLOOD ORDERABLES Final Resul t Performing Organization Address City/[facility] Co de Phone Number [facility] [place] [address] * (ABNORMAL) Lipase (09/08/2021 4:47 AM CDT) Lipase 313(H) 10 - 99 Units/L [facility] Blood 09/08/2021 4:47 AM CDT 09/08/2021 5:17 AM CDT us Jerry Carpenter MD LAB BLOOD ORDERABLES Final Resul t Performing Organization Address [facility] de Phone Number [facility] [place] [address] * (ABNORMAL) Comprehensive metabolic panel (09/08/2021 4:47 AM CDT) Pathologist [facility] Sodium 141 135 - 145 mmol/L [facility] Potassium, pl 4.1 3.3 - 4.9 mmol/L [facility] Comment:Hemolyzed; Potassium value may be falsely elevated by as much as 0.3-0.5 mmol/L. Suggest redraw and reanalysis. Chloride 105 97 - 110 mmol/L [facility] CO2 29 22 - 32 mmol/L [facility] Anion gap 7 2 - 15 mmol/L [facility] BUN 29(H) 8 - 25 mg/dL [facility] Creatinine 0.87 0.80 - 1.30 mg/dL [facility] Glucose 156 70 - 199 mg/dL [facility] Comment: Interpretive Data Fasting glucose >/= [...] Calcium 8.4(L) 8.5 - 10.3 mg/dL [facility] Bilirubin, total 2.4(H) 0.1 - 1.2 mg/dL [facility] Protein, pl 5.3(L) 6.5 - 8.5 g/dL [facility] Albumin 2.7(L) 3.5 - 5.0 g/dL [facility] Alk phos 179(H) 40 - 130 Units/L [facility] ALT 1,335(H) 7 - 55 Units/L [facility] AST 160(H) 10 - 50 Units/L [facility] Comment:Hemolyzed; result ma y be falsely elevated Blood 09/08/2021 4:47 AM CDT 09/08/2021 5:17 AM CDT Jerry Carpenter MD LAB BLOOD ORDERABLES Final Resul t [facility] [place] [address] * (ABNORMAL) Phosphorus (09/08/2021 4:47 AM CDT) Phosphorus, pl 1.2(L) 2.3 - 4.5 mg/dL [facility] Blood 09/08/2021 4:47 AM CDT 09/08/2021 5:17 AM CDT us Jerry Carpenter MD LAB BLOOD ORDERABLES Final Resul t [facility] [place] [address] * Magnesium (09/08/2021 4:47 AM CDT) Magnesium 1.7 1.4 - 2.5 mg/dL [facility] Blood 09/08/2021 4:47 AM CDT 09/08/2021 5:17 AM CDT us Jerry Carpenter MD LAB BLOOD ORDERABLES Final Resul t Performing Organization Address [facility] de Phone Number [facility] [place] [address] * (ABNORMAL) Urinalysis, microscopic only (09/08/2021 2:15 AM CDT) WBC, ur 0-5 0 - 5 /HPF [facility] RBC, ur 3-5(A) 0 - 2 /HPF [facility] Mucous, ur Present(A) [facility] Hyaline casts, ur 1-5 0 - 10 /LPF [facility] Culture Reflex Comment Reflex conditions for urine culture (WBC >10) not met. [facility] Urine 09/08/2021 2:15 AM CDT 09/08/2021 2:28 AM CDT us Jerry Carpenter MD LAB URINE ORDERABLES Final Resul t Performing Organization Address [facility] de Phone Number [facility] [place] [address] * (ABNORMAL) Urinalysis reflex to microscopic and culture Urine (09/08/2021 2:15 AM CDT) Color, ur Yellow Yellow [facility] Clarity, ur Clear Clear [facility] Specific gravity, ur >1.042(H) 1.003 - 1.030 [facility] pH, urine 6 [facility] Protein, ur ql 1+(A) Negative [facility] Glucose, ur ql 3+(A) Negative [facility] Ketones, ur 1+(A) Negative [facility] Bilirubin, ur Negative Negative [facility] Blood, ur Negative Negative [facility] Urobilinogen, ur 2.0(A) <2.0 mg/dL [facility] Nitrite, ur Negative Negative [facility] Leukocyte esterase, ur Negative Negative [facility] UA reflex comment Reflex to microscopic UA will be performed. [facility] Urine 09/08/2021 2:15 AM CDT 09/08/2021 2:15 AM CDT [facility]ative [facility] - 09/08/2021 3:35 AM CDT Obtain with INITIAL infection work up. Urine pH is affected by diet, medications, systemic acid-base disturbances, and renal tubular function. ??pH may affect urinary stone formation. ??For example, urine pH below 6.0 may help reduce the tendency for calcium phosphate stones and pH greater than 6.0 may reduce the tendency for uric acid stone formation. Source: [employer]. Last revised 11-28-2017 us Jerry Carpenter MD LAB MICROBIOLOGY - GENERAL ORDER SUBHA Final Result [facility] [place] [address] * (ABNORMAL) eGFR (09/07/2021 10:06 PM CDT) eGFR 87(L) 90 - 130 mL/min/1.7 3 m2 [facility] Comment: Interpretive Data Reference Interval Normal [...] MD LAB BLOOD ORDERABLES Final Resul t [facility] [place] [address] * (ABNORMAL) Manual Differential (09/07/2021 10:06 PM CDT) Differential Manual [facility] Cells Counted 116 [facility] Neutrophil abs 14.8(H) 1.7 - 6.5 K/cumm [facility] Imm gran abs 0.0 0.0 - 0.1 K/cumm [facility] Lymphocyte abs 0.6(L) 0.8 - 3.3 K/cumm [facility] Monocyte abs 1.0(H) 0.2 - 0.8 K/cumm [facility] Eosinophil abs 0.2 0.0 - 0.5 K/cumm [facility] Neutrophil pct 89.7 % [facility] Comment: Interpretive Data Percent cell count reference ranges are not reported, since discordance with absolute values may lead to misinterpretation of CBC data. Current Interpretive Data was last revised on 2018. Lymphocyte pct 3.4 % [facility] Comment: Interpretive Data Percent cell count reference ranges are not reported, since discordance with absolute values may lead to misinterpretation of CBC data. Current Interpretive Data was last revised on 2018. Monocyte pct 6.0 % [facility] Comment: Interpretive Data Percent cell count reference ranges are not reported, since discordance with absolute values may lead to misinterpretation of CBC data. Current Interpretive Data was last revised on 2018. Eosinophil pct 0.9 % [facility] Comment: Interpretive Data Percent cell count reference ranges are not reported, since discordance with absolute values may lead to misinterpretation of CBC data. Current Interpretive Data was last revised on 2018. RBC morphology Present(A) [facility] Polychromasia 3-7/HPF(A) [facility] Anisocytosis Marked(A) [facility] Poikilocytosis Slight(A) [facility] Macrocytes > 15/HPF(A) [facility] Target cells 3-7/HPF(A) [facility] Echinocytes 3-7/HPF(A) [facility] Platelet estimate Adequate [facility] Blood 09/07/2021 10:0 6 PM CDT 09/07/2021 10:14 PM CDT us Jerry Carpenter MD LAB BLOOD ORDERABLES Final Resul t [facility] [place] [address] * (ABNORMAL) CBC without differential (09/07/2021 10:06 PM CDT) WBC 16.5(H) 3.8 - 9.9 K/cumm [facility] Hgb 13.9 13.0 - 17.5 g/dL [facility] Hct 40.7 38.9 - 50.3 % [facility] Plt 173 150 - 400 K/cumm [facility] MPV 11.1 9.1 - 12.3 fL [facility] RBC 4.18(L) 4.30 - 5.80 M/cumm [facility] MCV 97.4(H) 81.3 - 96.4 fL [facility] MCH 33.3 27.1 - 33.3 pg [facility] MCHC 34.2 32.3 - 35.7 g/dL [facility] RDW CV 15.0(H) 11.1 - 14.9 % [facility] RDW SD 53.8(H) 35.7 - 48.1 fL [facility] NRBC abs 0.33(H) 0.00 - 0.01 K/cumm [facility] Blood 09/07/2021 10:0 6 PM CDT 09/07/2021 10:14 PM CDT Result Amelia Carpenter MD LAB BLOOD ORDERABLES Final Resul t Performing Organization Address [facility] de Phone Number [facility] [place] [address] * (ABNORMAL) Fibrinogen (09/07/2021 10:06 PM CDT) Fibrinogen 499(H) 170 - 400 mg/dL [facility] Blood 09/07/2021 10:0 6 PM CDT 09/07/2021 10:14 PM CDT Result Amelia Carpenter MD LAB BLOOD ORDERABLES Final Resul t Performing Organization Address [facility] de Phone Number [facility] [place] [address] * aPTT (09/07/2021 10:06 PM CDT) aPTT 29 27 - 37 sec [facility] Comment: Interpretive Data Therapeutic heparin range: 60.0 - 94.0 seconds. Based on correlation with therapeutic heparin activity range of 0.3-0.7 Units/mL. Current interpretive data was last revised on 2021. Blood 09/07/2021 10:0 6 PM CDT 09/07/2021 10:14 PM CDT Result Amelia Carpenter MD LAB BLOOD ORDERABLES Final Resul t Performing Organization Address [facility] de Phone Number [facility] [place] [address] * Protime-INR (09/07/2021 10:06 PM CDT) PT 13.1 9.5 - 13.6 sec [facility] INR 1.2 0.9 - 1.2 [facility] Comment: Interpretive data Oral anticoagulant therapeutic [...] ORDERABLES Final Resul t Performing Organization Address [facility] Co de Phone Number [facility] [place] [address] * Uric acid (09/07/2021 10:06 PM CDT) Uric acid 5.3 3.0 - 8.0 mg/dL [facility] Blood 09/07/2021 10:0 6 PM CDT 09/07/2021 10:14 PM CDT us Jerry Carpenter MD LAB BLOOD ORDERABLES Final Resul t Performing Organization Address [facility] Co de Phone Number [facility] [place] [address] * (ABNORMAL) Lactate dehydrogenase (LD) (09/07/2021 10:06 PM CDT) Lactate dehydrogenase (LDH) 294(H) 100 - 250 Units/L [facility] Blood 09/07/2021 10:0 6 PM CDT 09/07/2021 10:14 PM CDT us Jerry Carpenter MD LAB BLOOD ORDERABLES Final Resul t Performing Organization Address City/[facility]/ZIP Co de Phone Number [facility] [place] [address] * (ABNORMAL) Phosphorus (09/07/2021 10:06 PM CDT) Pathologist [facility] Phosphorus, pl 1.3(L) 2.3 - 4.5 mg/dL [facility] Blood 09/07/2021 10:0 6 PM CDT 09/07/2021 10:14 PM CDT Jerry Carpenter MD LAB BLOOD ORDERABLES Final Resul t [facility] [place] [address] * Magnesium (09/07/2021 10:06 PM CDT) [facility] Magnesium 1.7 1.4 - 2.5 mg/dL [facility] Blood 09/07/2021 10:0 6 PM CDT 09/07/2021 10:14 PM CDT Jerry Carpenter MD LAB BLOOD ORDERABLES Final Resul t Performing Organization Address City/[facility] Co de Phone Number [facility] [place] [address] * (ABNORMAL) Comprehensive metabolic panel (09/07/2021 10:06 PM CDT) [facility] Sodium 144 135 - 145 mmol/L [facility] Potassium, pl 4.2 3.3 - 4.9 mmol/L [facility] Chloride 100 97 - 110 mmol/L [facility] CO2 33(H) 22 - 32 mmol/L [facility] Anion gap 11 2 - 15 mmol/L [facility] BUN 28(H) 8 - 25 mg/dL [facility] Creatinine 0.98 0.80 - 1.30 mg/dL [facility] Glucose 244(H) 70 - 199 mg/dL [facility] Comment: Interpretive Data Fasting glucose >/= [...] 2017. Calcium 9.2 8.5 - 10.3 mg/dL [facility] Bilirubin, total 3.3(H) 0.1 - 1.2 mg/dL [facility] Protein, pl 6.7 6.5 - 8.5 g/dL [facility] Albumin 3.5 3.5 - 5.0 g/dL [facility] Alk phos 214(H) 40 - 130 Units/L [facility] ALT 2,063(H) 7 - 55 Units/L [facility] AST 263(H) 10 - 50 Units/L [facility] Blood 09/07/2021 10:0 6 PM CDT 09/07/2021 10:14 PM CDT us Jerry Carpenter MD LAB BLOOD ORDERABLES Final Resul t [facility] [place] [address] * ECG 12 lead (09/07/2021 10:03 PM CDT) Pathologist [facility] Ventricular Rate EKG/Min 72 BPM [facility] Atrial Rate 72 BPM [facility] DC-Interval (MSEC) 136 ms [facility] QRS-Interval (MSEC) 86 ms [facility] QT-Interval (MSEC) 372 ms [facility] QTc 407 ms [facility] R [place] 82 degrees [facility] T [place] 73 degrees [facility] Diagnosis Normal sinus rhythm Nonspecific T wave abnormality Abnormal ECG When compared with ECG of 17-AUG-2021 13:08, Nonspecific T wave abnormality now evident in Inferior leads Nonspecific T wave abnormality, worse in Lateral leads Confirmed by NGOZI MILES M.D ([id number]) on 09/08/2021 1:32:25 PM [facility] 09/07/2021 10:0 3 PM CDT 09/08/2021 1:32 PM CDT us Jerry Carpenter MD ECG ORDERABLES Final Result Performing Organization Address City/[facility]/ZIP Co de Phone Number [facility] * (ABNORMAL) POCT glucose (09/07/2021 9:24 PM CDT) [facility] Glucose, POC 228(H) 70 - 199 mg/dL [facility] Blood 09/07/2021 9:24 PM CDT 09/07/2021 9:24 PM CDT Anaid Kruse MD LAB POCT ORDERABLES - DEVICE Final Result Performing Organization Address [facility] Co de Phone Number [facility] [place] [address] * X-ray chest 1 view (Portable) (09/07/2021 [...] (ABNORMAL) POCT glucose (09/07/2021 6:55 PM CDT) [facility] Glucose, POC 210(H) 70 - 199 mg/dL [facility] Blood 09/07/2021 6:55 PM CDT 09/07/2021 6:55 PM CDT Tay Charlton MD LAB POCT ORDERABLES - [place] CE Final Result Performing Organization Address City/[facility] Co de Phone Number [facility] [place] [address] * Prepare RBC: 1 Units (09/07/2021 5:36 PM CDT) [facility] Product code [id number] [facility] Unit Number [id number] 8-7 [facility] Product Blood Type APOS [facility] Dispense Status RETURNED [facility] Blood 09/07/2021 5:36 PM CDT 09/07/2021 5:39 PM CDT Narrative [facility] - 09/08/2021 9:07 AM CDT Other indication->3g hgb drop today, no source Are special requirements needed? (all products are leukoreduced)->No Date required:-[id number] LRRBC # of [id number] Reasons:-Other (specify)} us Michael Parham MD BLOOD BANK PRODUCT ORDERA BLES Final Result Performing Organization Address [facility] Co de Phone Number [facility] [place] [address] * POC Blood Gas and Chemistries, Arterial - (09/07/2021 5:19 PM CDT) [facility] Lactate, POC 2.0 0.7 - 2.2 mmol/L [facility] Blood 09/07/2021 5:19 PM CDT 09/07/2021 5:19 PM CDT Tay Charlton MD LAB POCT ORDERABLES - [place] CE Final Result Performing Organization Address [facility] Co de Phone Number [facility] [place] [address] * (ABNORMAL) POCT glucose (09/07/2021 4:51 PM CDT) Glucose, POC 212(H) 70 - 199 mg/dL [facility] Glucose comment 1 Doctor Notified [facility] Blood 09/07/2021 4:51 PM CDT 09/07/2021 4:51 PM CDT Tay Charlton MD LAB POCT ORDERABLES - [place] CE Final Result Performing Organization Address [facility] de Phone Number [facility] [place] [address] * eGFR (09/07/2021 4:49 PM CDT) eGFR >90 90 - 130 mL/min/1.7 3 m2 [facility] Comment: Interpretive Data Reference Interval Normal [...] MD LAB BLOOD ORDERABLES Pilar armas Result [facility] [place] [address] * (ABNORMAL) Differential, auto (09/07/2021 4:49 PM CDT) Neutrophil abs 14.5(H) 1.7 - 6.5 K/cumm [facility] Imm gran abs 0.2(H) 0.0 - 0.1 K/cumm [facility] Lymphocyte abs 1.6 0.8 - 3.3 K/cumm [facility] Monocyte abs 0.6 0.2 - 0.8 K/cumm [facility] Eosinophil abs 0.0 0.0 - 0.5 K/cumm [facility] Basophil abs 0.1 0.0 - 0.1 K/cumm [facility] Neutrophil pct 85.1 % [facility] Comment: Interpretive Data Percent cell count reference ranges are not reported, since discordance with absolute values may lead to misinterpretation of CBC data. Current Interpretive Data was last revised on 2018. Imm gran pct 1.4 % [facility] Comment: Interpretive Data Percent cell count reference ranges are not reported, since discordance with absolute values may lead to misinterpretation of CBC data. Current Interpretive Data was last revised on 2018. Lymphocyte pct 9.5 % [facility] Comment: Interpretive Data Percent cell count reference ranges are not reported, since discordance with absolute values may lead to misinterpretation of CBC data. Current Interpretive Data was last revised on 2018. Monocyte pct 3.5 % [facility] Comment: Interpretive Data Percent cell count reference ranges are not reported, since discordance with absolute values may lead to misinterpretation of CBC data. Current Interpretive Data was last revised on 2018. Eosinophil pct 0.1 % [facility] Comment: Interpretive Data Percent cell count reference ranges are not reported, since discordance with absolute values may lead to misinterpretation of CBC data. Current Interpretive Data was last revised on 2018. Basophil pct 0.4 % [facility] Comment: Interpretive Data Percent cell count reference ranges are not reported, since discordance with absolute values may lead to misinterpretation of CBC data. Current Interpretive Data was last revised on 2018. Blood 09/07/2021 4:49 PM CDT 09/07/2021 5:08 PM CDT us Michael Parham MD LAB BLOOD ORDERABLES Pilar armas Result [facility] [place] [address] * (ABNORMAL) Comprehensive metabolic panel (09/07/2021 4:49 PM CDT) Sodium 142 135 - 145 mmol/L [facility] Potassium, pl 3.9 3.3 - 4.9 mmol/L [facility] Chloride 103 97 - 110 mmol/L [facility] CO2 30 22 - 32 mmol/L [facility] Anion gap 9 2 - 15 mmol/L [facility] BUN 29(H) 8 - 25 mg/dL [facility] Creatinine 0.86 0.80 - 1.30 mg/dL [facility] Glucose 242(H) 70 - 199 mg/dL [facility] Comment: Interpretive Data Fasting glucose >/= [...] 2017. Calcium 9.1 8.5 - 10.3 mg/dL [facility] Bilirubin, total 3.1(H) 0.1 - 1.2 mg/dL [facility] Protein, pl 6.4(L) 6.5 - 8.5 g/dL [facility] Albumin 3.3(L) 3.5 - 5.0 g/dL [facility] Alk phos 190(H) 40 - 130 Units/L [facility] ALT 2,123(H) 7 - 55 Units/L [facility] AST 352(H) 10 - 50 Units/L [facility] Blood 09/07/2021 4:49 PM CDT 09/07/2021 5:09 PM CDT us Michael Parham MD LAB BLOOD ORDERABLES Pilar armas Result [facility] [place] [address] * (ABNORMAL) CBC with auto differential (09/07/2021 4:49 PM CDT) WBC 17.0(H) 3.8 - 9.9 K/cumm [facility] Hgb 13.5 13.0 - 17.5 g/dL [facility] Hct 38.8(L) 38.9 - 50.3 % [facility] Plt 173 150 - 400 K/cumm [facility] MPV 10.8 9.1 - 12.3 fL [facility] RBC 3.99(L) 4.30 - 5.80 M/cumm [facility] MCV 97.2(H) 81.3 - 96.4 fL [facility] MCH 33.8(H) 27.1 - 33.3 pg [facility] MCHC 34.8 32.3 - 35.7 g/dL [facility] RDW CV 14.8 11.1 - 14.9 % [facility] RDW SD 52.9(H) 35.7 - 48.1 fL [facility] NRBC abs 0.24(H) 0.00 - 0.01 K/cumm [facility] Blood 09/07/2021 4:49 PM CDT 09/07/2021 5:08 PM CDT us Michael Parham MD LAB BLOOD ORDERABLES Pilar l Result Performing Organization Address [facility] Co de Phone Number [facility] [place] [address] * FL ERCP Biliary Duct (09/07/2021 2:34 PM CDT) Narrative [facility] - 09/07/2021 2:34 PM CDT The images from this study are not interpreted by Radiology. ??Please refer to the physician's procedure / OR operative note. Tay Charlton MD IMG FLUOROSCOPY PROCEDURES Final Result Performing Organization Address [facility] Co de Phone Number [facility] * (ABNORMAL) POCT glucose (09/07/2021 1:34 PM CDT) Glucose, POC 216(H) 70 - 199 mg/dL [facility] Blood 09/07/2021 1:34 PM CDT 09/07/2021 1:34 PM CDT Tay Charlton MD LAB POCT ORDERABLES - [place] CE Final Result Performing Organization Address [facility] Co de Phone Number [facility] [place] [address] * ERCP (09/07/2021 1:04 PM CDT) Anatomical Region Laterality Modality Other Narrative Procedure Note Tay Charlton MD - 09/07/2021 1:04 PM CDT [facility] Patient Name: Brady Jones Procedure Date: 09/07/2021 1:04 PM Date of : 1965 Admit Type: Outpatient Age: 55 Gender: Male Attending MD: Tay Charlton M.D. Room: [facility] ENDOSCOPY ROOM 2 Note Status: Finalized [...] were discussed and informed consentwas obtained. The [id number] Duodenoscope wasintroduced through the mouth, and used to inject contrast into and used to inject contrast into the bile duct and ventral pancreatic duct. The [id number] endoscope was introduced through the and used to inject contrast into. The ERCP was accomplished without difficulty. The patient tolerated the procedure well. Findings: The manager nursing film was normal. The esophagus was successfully [...] through the upper GI tract. Hematin (altered blood/rcujga-zxvask-bypu material) was found in the entire examined [...] esophagitis with no bleeding. - Hematin (altered blood/hrnkpa-osqqef-kyppsgmlkerc) in the entire stomach. - Non-bleeding duodenal [...] On: 09/07/2021 1:04 PM Recognized by the [place] [employer] for promoting quality [...] organism identification may be performed using the [employer] Gram-Positive Blood Culture Assay. This assay detects microbial DNA in positive blood culture broth via hybridization of target DNA to capture oligonucleotides on a microarray. This assay has been cleared by the [place] Food and Drug Administration and its performance characteristics have been verified by the [facility] Microbiology Laboratory. 5. ?For questions about this culture, contact the Microbiology Laboratory at [phone]. Interpretive data was last revised on 2020. Parmjit Pelayo MD LAB MICROBIOLOGY - [facility] AL ORDERABLES Final Result [facility] [place] [address] * Blood culture Blood (09/07/2021 10:19 AM [...] organism identification may be performed using the [employer] Gram-Positive Blood Culture Assay. This assay detects microbial DNA in positive blood culture broth via hybridization of target DNA to capture oligonucleotides on a microarray. This assay has been cleared by the [place] Food and Drug Administration and its performance characteristics have been verified by the [facility]biology Laboratory. 5. ?For questions about this culture, contact the Microbiology Laboratory at [phone]. Interpretive data was last revised on 2020. Parmjit Pelayo MD LAB MICROBIOLOGY - GENER AL ORDERABLES Final Result [facility] [place] [address] * (ABNORMAL) POCT glucose (09/07/2021 9:29 AM CDT) [facility] Glucose, POC 216(H) 70 - 199 mg/dL [facility] Blood 09/07/2021 9:29 AM CDT 09/07/2021 9:29 AM CDT Anaid Kruse MD LAB POCT ORDERABLES - DEVICE Final Result [facility] [place] [address] * US RUQ (09/07/2021 8:38 AM CDT) [...] cell transplant currently in remission. 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 ??Currently [...] the pancreas are normal. Dr. Neena Higginbotham (advertising vice president) personally participated in sonographic imaging of this patient. Procedure Note Kirt Cali MD - 09/07/2021 EXAMINATION: LIMITED ABDOMINAL SONOGRAM HISTORY: 55-year-old male with history of AML status post stem cell transplant currently in remission. 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 Currently [...] the pancreas are normal. Dr. Neena Higginbotham (advertising vice president) personally participated in sonographic imaging of this [...] POCT glucose (09/07/2021 5:56 AM CDT) Pathologist [facility] Glucose, POC 287(H) 70 - 199 mg/dL [facility] Blood 09/07/2021 5:56 AM CDT 09/07/2021 5:56 AM CDT Anaid Kruse MD LAB POCT ORDERABLES - DEVICE Final Result [facility] [place] [address] * COVID-19 Coronavirus RNA Nasopharyngeal (09/07/2021 5:51 AM CDT) [facility] COVID-19 RNA Negative Negative [facility] Comment: Interpretive data: Synonyms for this test include: PCR and NAAT . ??This test is performed using the OrderMotion Xpert Xpress assay. This is a real-time [...] December 22, 2020. First COVID-19 test? No [facility] Employeed in healthcare? No [facility] status? No [facility] Group care resident? No [facility] Hospitalized? No [facility] Is patient in ICU? No [facility] Symptomatic as defined by CDC? No [facility] Nasopharyngeal 09/07/2021 5: 51 AM CDT 09/07/2021 6:23 AM CDT Narrative [facility] - 09/07/2021 7:13 AM CDT What is the reason for testing?->Bed placement or semi-private room us Cruz Shah MD LAB MICROBIOLOGY - GENERA L ORDERABLES Final Result [facility] [place] [address] * CT Chest PE (CTA) Abdomen Pelvis [...] * POCT creatinine (09/07/2021 4:31 AM CDT) [facility] Signature Creatinine POC 1.1 0.7 - 1.3 mg/dL [facility] Blood 09/07/2021 4:31 AM CDT 09/07/2021 4:31 AM CDT us Notinfile Unknown LAB POCT ORDERABLES - DEVICE F inal Result [facility] Department of Laboratories [place], [place] [id number] * Erythrocyte sedimentation rate (09/07/2021 4:28 AM CDT) Erythrocyte sedimentation rate 10 1 - 20 mm/hr [facility] Blood 09/07/2021 4:28 AM CDT 09/07/2021 4:47 AM CDT us Anaid Kruse MD LAB BLOOD ORDERABLES Final Result Performing Organization Address [facility] Co de Phone Number [facility] [place] [address] * (ABNORMAL) CRP (acute phase) (09/07/2021 4:28 AM CDT) CRP 147.2(H) <=10.0 mg/L [facility] Blood 09/07/2021 4:28 AM CDT 09/07/2021 4:43 AM CDT us Anaid Kruse MD LAB BLOOD ORDERABLES Final Result Performing Organization Address [facility] de Phone Number [facility] [place] [address] * (ABNORMAL) Bilirubin, direct (09/07/2021 4:28 AM CDT) Bilirubin, direct 1.6(H) 0.1 - 0.3 mg/dL [facility] Blood 09/07/2021 4:28 AM CDT 09/07/2021 4:44 AM CDT us Anaid Kruse MD LAB BLOOD ORDERABLES Final Result Performing Organization Address [facility] [place] [address] * Acetaminophen level (09/07/2021 4:28 AM CDT) Acetaminophen 6.0 mcg/mL [facility] Comment: Interpretive Data Significant hepatic injury [...] BLOOD ORDERABLES Final Result Performing Organization Address [facility] Co de Phone Number [facility] [place] [address] * Tacrolimus level random (09/07/2021 4:28 AM CDT) Tacrolimus random <1.0 ng/mL [facility] Comment: Undetectable. ??Please verify that the correct immunosuppressant test was requested. Interpretive Data Testing performed by liquid chromatography-tandem mass spectrometry. ??Therapeutic concentrations vary depending on type of transplanted organ and time elapsed since transplant. ??Typical trough concentrations range from 5-15 ng/mL. ??This test was developed and its performance characteristics determined by the [facility] consistent with CLIA requirements. ??This test has not been cleared or approved by the [place] Food and Drug administration. ??Current interpretive data last reviewed 2020. Blood 09/07/2021 4:28 AM CDT 09/07/2021 4:47 AM CDT Anaid Kruse MD LAB BLOOD ORDERABLES Final Result Performing Organization Address [facility] Co de Phone Number [facility] [place] [address] * (ABNORMAL) Creatine kinase (CK), total (09/07/2021 4:28 AM CDT) CK 39(L) 40 - 300 Units/L [facility] Blood 09/07/2021 4:28 AM CDT 09/07/2021 4:43 AM CDT Anaid Kruse MD LAB BLOOD ORDERABLES Final Result Performing Organization Address [facility] de Phone Number [facility] [place] [address] * (ABNORMAL) Triglycerides (09/07/2021 4:28 AM CDT) Triglycerides 233(H) <=149 mg/dL [facility] Comment: Interpretive Data Ages < or [...] BLOOD ORDERABLES Final Result Performing Organization Address [facility] de Phone Number [facility] [place] [address] * Critical Result Callback Chemistry (09/07/2021 4:28 AM CDT) Date Notified [id number] [facility] Time Notified 519 [facility] TestName Елена POOLE [facility] Called/Read Back Cruz DENT Credentials MD ZULEMA DENT Called By celestina DENT Blood 09/07/2021 4:28 AM CDT 09/07/2021 4:43 AM CDT Anaid Kruse MD LAB BLOOD ORDERABLES Final Result [facility] [place] [address] * eGFR (09/07/2021 4:28 AM CDT) eGFR 90 90 - 130 mL/min/1.7 3 m2 [facility] Comment: Interpretive Data Reference Interval Normal [...] Kruse MD LAB BLOOD ORDERABLES Final Result [facility] [place] [address] * (ABNORMAL) Differential, auto (09/07/2021 4:28 AM CDT) Neutrophil abs 9.5(H) 1.7 - 6.5 K/cumm [facility] Imm gran abs 0.1 0.0 - 0.1 K/cumm [facility] Lymphocyte abs 1.1 0.8 - 3.3 K/cumm [facility] Monocyte abs 0.3 0.2 - 0.8 K/cumm [facility] Eosinophil abs 0.0 0.0 - 0.5 K/cumm [facility] Basophil abs 0.0 0.0 - 0.1 K/cumm [facility] Neutrophil pct 86.8 % [facility] Comment: Interpretive Data Percent cell count reference ranges are not reported, since discordance with absolute values may lead to misinterpretation of CBC data. Current Interpretive Data was last revised on 2018. Imm gran pct 0.8 % [facility] Comment: Interpretive Data Percent cell count reference ranges are not reported, since discordance with absolute values may lead to misinterpretation of CBC data. Current Interpretive Data was last revised on 2018. Lymphocyte pct 9.7 % [facility] Comment: Interpretive Data Percent cell count reference ranges are not reported, since discordance with absolute values may lead to misinterpretation of CBC data. Current Interpretive Data was last revised on 2018. Monocyte pct 2.4 % [facility] Comment: Interpretive Data Percent cell count reference ranges are not reported, since discordance with absolute values may lead to misinterpretation of CBC data. Current Interpretive Data was last revised on 2018. Eosinophil pct 0.1 % [facility] Comment: Interpretive Data Percent cell count reference ranges are not reported, since discordance with absolute values may lead to misinterpretation of CBC data. Current Interpretive Data was last revised on 2018. Basophil pct 0.2 % [facility] Comment: Interpretive Data Percent cell count reference ranges are not reported, since discordance with absolute values may lead to misinterpretation of CBC data. Current Interpretive Data was last revised on 2018. Blood 09/07/2021 4:28 AM CDT 09/07/2021 4:43 AM CDT us Anaid Kruse MD LAB BLOOD ORDERABLES Final Result Performing Organization Address City/[facility]/ZIP Co de Phone Number [facility] [place] [address] * (ABNORMAL) Lipase (09/07/2021 4:28 AM CDT) Lipase 650(C) 10 - 99 Units/L [facility] Blood 09/07/2021 4:28 AM CDT 09/07/2021 4:43 AM CDT Anaid Kruse MD LAB BLOOD ORDERABLES Final Result Performing Organization Address City/[facility] de Phone Number [facility] [place] [address] * Hepatitis panel, acute (09/07/2021 4:28 AM CDT) Pathologist [facility] Hep A IgM Nonreactive Nonreactive [facility] Comment: Interpretive Data: If Hep A IgM Ab is reported as Equivocal, a new sample should be drawn in two weeks for testing. Current interpretive data was last revised on 20. Hep B core IgM Nonreactive Nonreactive [facility] Comment: Interpretive Data If HepB Core IgM Ab is reported as Equivocal, a new sample should be drawn in two weeks for testing. Current interpretive data was last revised on 20. Hep C Ab Nonreactive Nonreactive [facility] Comment:Antibodies to HCV no t detected. Does NOT exclude the possibility of recent exposure to HCV. HepBsAg Nonreactive Nonreactive [facility] Blood 09/07/2021 4:28 AM CDT 09/07/2021 4:44 AM CDT us Anaid Kruse MD LAB MICROBIOL OGY - GENERAL ORDERABLES Edited Result - Final Performing Organization Address [facility] Co de Phone Number [facility] [place] [address] * Ammonia (09/07/2021 4:28 AM CDT) Ammonia 21 5 - 50 mcmol/L [facility] Blood 09/07/2021 4:28 AM CDT 09/07/2021 4:38 AM CDT us Anaid Kruse MD LAB BLOOD ORDERABLES Final Result Performing Organization Address [facility] de Phone Number [facility] [place] [address] * Type and screen (09/07/2021 4:28 AM CDT) ABO Rh A Positive [facility] Ursula, indirect Negative [facility] Blood 09/07/2021 4:28 AM CDT 09/07/2021 4:36 AM CDT Narrative [facility] - 09/07/2021 5:38 AM CDT Has the patient had Daratumumab or Isatuximab in the past 6 months?->Unknown us Anaid Kruse MD LAB BLOOD BANK TEST O RDERABLES Final Result Performing Organization Address [facility] Co de Phone Number [facility] [place] [address] * (ABNORMAL) Protime-INR (09/07/2021 4:28 AM CDT) PT 14.9(H) 9.5 - 13.6 sec [facility] INR 1.3(H) 0.9 - 1.2 [facility] Comment: Interpretive data Oral anticoagulant therapeutic ranges: Venous thromboembolism prophylaxis or treatment: 2.0-3.0 CARDIOLOGY Standard range: 2.0-3.0 High-intensity range: 2.5-3.5 Refer to indication-specific guidelines for appropriate target ranges for prosthetic heart valve replacement. Current interpretive data was last revised on 2019. Blood 09/07/2021 4:28 AM CDT 09/07/2021 4:54 AM CDT us Anaid Kruse MD LAB BLOOD ORDERABLES Final Result Performing Organization Address [facility] de Phone Number [facility] [place] [address] * aPTT (09/07/2021 4:28 AM CDT) Pathologist [facility] aPTT 28 27 - 37 sec [facility] Comment: Interpretive Data Therapeutic heparin range: 60.0 - 94.0 seconds. Based on correlation with therapeutic heparin activity range of 0.3-0.7 Units/mL. Current interpretive data was last revised on 2021. Blood 09/07/2021 4:28 AM CDT 09/07/2021 4:54 AM CDT us Anaid Kruse MD LAB BLOOD ORDERABLES Final Result Performing Organization Address [facility] de Phone Number [facility] [place] [address] * (ABNORMAL) Comprehensive metabolic panel (09/07/2021 4:28 AM CDT) Pathologist [facility] Sodium 140 135 - 145 mmol/L [facility] Potassium, pl 5.0(H) 3.3 - 4.9 mmol/L [facility] Comment:Hemolyzed; Potassium value may be falsely elevated by as much as 0.3-0.5 mmol/L. Suggest redraw and reanalysis. Chloride 94(L) 97 - 110 mmol/L [facility] CO2 25 22 - 32 mmol/L [facility] Anion gap 21(H) 2 - 15 mmol/L [facility] BUN 34(H) 8 - 25 mg/dL [facility] Creatinine 0.95 0.80 - 1.30 mg/dL [facility] Glucose 319(H) 70 - 199 mg/dL [facility] Comment: Interpretive Data Fasting glucose >/= [...] 2017. Calcium 10.0 8.5 - 10.3 mg/dL [facility] Bilirubin, total 3.2(H) 0.1 - 1.2 mg/dL [facility] Protein, pl 7.9 6.5 - 8.5 g/dL [facility] Albumin 4.0 3.5 - 5.0 g/dL [facility] Alk phos 234(H) 40 - 130 Units/L [facility] ALT 3,535(H) 7 - 55 Units/L [facility] AST 1,047(H) 10 - 50 Units/L [facility] Comment:Hemolyzed; result ma y be falsely elevated Blood 09/07/2021 4:28 AM CDT 09/07/2021 4:44 AM CDT Anaid Kruse MD LAB BLOOD ORDERABLES Final Result [facility] [place] [address] * (ABNORMAL) CBC with auto differential (09/07/2021 4:28 AM CDT) Pathologist [facility] WBC 11.0(H) 3.8 - 9.9 K/cumm [facility] Hgb 16.5 13.0 - 17.5 g/dL [facility] Hct 46.9 38.9 - 50.3 % [facility] Plt 202 150 - 400 K/cumm [facility] MPV 11.4 9.1 - 12.3 fL [facility] RBC 4.82 4.30 - 5.80 M/cumm [facility] MCV 97.3(H) 81.3 - 96.4 fL [facility] MCH 34.2(H) 27.1 - 33.3 pg [facility] MCHC 35.2 32.3 - 35.7 g/dL [facility] RDW CV 14.6 11.1 - 14.9 % [facility] RDW SD 51.8(H) 35.7 - 48.1 fL [facility] NRBC abs 0.11(H) 0.00 - 0.01 K/cumm [facility] Blood 09/07/2021 4:28 AM CDT 09/07/2021 4:43 AM CDT Anaid Kruse MD LAB BLOOD ORDERABLES Final Result Performing Organization Address City/[facility]/ZIP Co de Phone Number [facility] [place] [address] * (ABNORMAL) POCT glucose (09/07/2021 4:26 AM CDT) Pathologist [facility] Glucose, POC 273(H) 70 - 199 mg/dL [facility] Blood 09/07/2021 4:26 AM CDT 09/07/2021 4:26 AM CDT us Notinfile Unknown LAB POCT ORDERABLES - DEVICE F inal Result Performing Organization Address City/[facility] Co de Phone Number [facility] [place] [address] * ECG 12-LEAD (09/07/2021 3:28 AM CDT) [...] Kruse MD ECG ORDERABLES Final Result [facility] * (ABNORMAL) POCT glucose (09/07/2021 3:15 AM CDT) Glucose, POC 266(H) 70 - 199 mg/dL [facility] Blood 09/07/2021 3:1 5 AM CDT 09/07/2021 3:15 AM CDT us Notinfile Unknown LAB POCT ORDERABLES - DEVICE F inal Result [facility] [place] [address] documented in this encounter Visit Diagnoses Diagnosis Acute hepatitis Acute and subacute necrosis of liver Jaundice Jaundice, unspecified, not of Abdominal pain Abdominal pain, unspecified site Hematemesis, presence of nausea not specified Abdominal pain Abdominal pain, unspecified site COPD with exacerbation (CMS/HCC) (HCC) 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) Umqve-cpzifr-anyu disease (HCC) History of DVT (deep vein [...] solution 5 mg 5 mg, nebulization, Once (respiratory therapy manager), On Sat09/07/21 at 0722, For 1 dose Given 09/07/2021 7:28 AM CDT 5 mg albuterol HFA (PROVENTIL HFA,VENTOLIN HFA,PROAIR HFA) 90 mcg/actuation inhaler 1 puff 1 puff, inhalation, Every 4 hours PRN (respiratory therapy manager), wheezing, Starting on Angy 09/07/21 at 2020 [...] Call MD for each episode of hypoglycemia. WILDLIFE REMOVAL SPECIALIST STATES GLUTOSE-15 CONTAINS GLUCOSE 40% W/W (50% W/V), Indications: hypoglycemic disorderIndications:hypoglycemic disorder hukkkbjimbx-vjbbtsdvk-rdqqnnib (TRELEGY ELLIPTA) 100-62.5-25 mcg inhaler 1 puff 1 puff, inhalation, Daily (respiratory therapy manager), First dose on Sat09/08/21 at 0800, Rinse mouth with water after use. Do not swallow., Indications: Bronchospasm Prevention with COPDIndications:Bronchospasm Prevention with COPD Given 09/08/2021 9:01 AM CDT 1 puff pctclozrhnw-mwvxhpoqb-uebtwtag (TRELEGY ELLIPTA) 100-62.5-25 mcg inhaler 1 puff [...] 0.5 mg 0.5 mg, nebulization, Once (respiratory therapy manager), On Angy 09/07/21 at 0722, For 1 [...] Sri Le RN) 0822 (Given - Provider: nSow Alfonso RN)1633 (Given - Provider: Snow Alfonso RN)2042 (Given - Provider: Sri Le RN) 0909 (Given - Provider: Snow Alfonso RN)1611 (Given - Provider: Snow Alfonso RN) calcium carbonate (TUMS) chewable tablet 500 mg 500 mg (200 mg of elemental calcium), oral, 2 times daily, First dose on Sat09/10/21 at 0945 1044 (Given - Provider: Snow Alfonso RN) ejgpnthxwof-usydsrvrg-yqsn nter (TRELEGY ELLIPTA) 100-62.5-25 mcg inhaler 1 puff (CANCELED) 1 puff, inhalation, Daily (respiratory therapy manager), First dose on Sat09/08/21 at 0800, Rinse mouth with water after use. Do not swallow., Indications: Bronchospasm Prevention with COPD 09 (Given - Provider: Ramonita Chilel RN) tlbugyheljd-fqdgmewkb-wuhq nter (TRELEGY ELLIPTA) 100-62.5-25 mcg inhaler 1 [...] 1 puff, inhalation, Every 4 hours PRN (respiratory therapy manager), wheezing, Starting on Sat09/07/21 at 2020 0924 (Given - Provider: Mala Aiken, BRANDEN) albuterol HFA (PROVENTIL HFA,VENTOLIN HFA,PROAIR HFA) 90 mcg/actuation inhaler 1 puff 1 puff, inhalation, Every 4 hours PRN, wheezing, Starting on Sat09/08/21 at 1045, RN TO ADMINISTER aluminum & magnesium ildqpptdb-vkhcktzeqvq-juto enhydramine-lidocaine (MAGIC MOUTHWASH) suspension 1-1-1 15 mL, [...] Call MD for each episode of hypoglycemia. WILDLIFE REMOVAL SPECIALIST STATES GLUTOSE-15 CONTAINS GLUCOSE 40% W/W (50% [...] Call MD for each episode of hypoglycemia. WILDLIFE REMOVAL SPECIALIST STATES GLUTOSE-15 CONTAINS GLUCOSE 40% W/W (50% [...] tablet 650 mg 2 aluminum & magnesium lwsttkzst-wedchayrsws-sgzzglvbftheevh-lido aida (MAGIC MOUTHWASH) suspension 1-1-1 1 09/07/2021 [...] 09/07/2021 documented in this encounter Care Teams Biological Lab Technician Relationship Specialty Start Date End Date Kirt Lindsay DO PCP - General Internal Medicine 02/02/21 Josué Del Valle MD PhD Medical Oncologist/Pantograph Operator Medical Oncology 08/26/19 documented as of this encounter
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
--- OUTSIDE RECORDS SUMMARY | 2024-11-22 13:01 | XMS_ITS | Encounter Summary ---
Author Organization [facility] Address [address] [place] [address] Phone Care Team Providers Care Physician Practice Coordinator Name Role Phone Josué Del Valle MD PhD Unavailable [phone] Kirt Lindsay DO Primary Care Provider [phone] Encounter Details Date Type Department Care Team (Late st Contact Info) Description 09/08/2021 Orders Only [facility] [address] [place] [address] [place] [id number] Tay Charlton MD [address] [place] [address] History of biliary duct stent placement (Primary [...] file 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
--- OUTSIDE RECORDS SUMMARY | 2024-11-22 13:01 | XMS_ITS | Encounter Summary ---
Author Organization [facility] Address [address] [place] [address] Phone Care Team Providers Care Dye Lab Technician Name Role Phone Josué Del Valle MD PhD Unavailable [phone] Kirt Lindsay DO Primary Care Provider [phone] Encounter Details Date Type Department Care Team (Late st Contact Info) Description 08/21/2021 Orders Only [facility] Oncology [address] 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
--- OUTSIDE RECORDS SUMMARY | 2024-11-22 13:01 | XMS_ITS | Encounter Summary ---
Author Organization [facility] Address [address] [place] [address] Phone Care Team Providers Care Web Software Engineer Name Role Phone Josué Del Valle MD PhD Unavailable [phone] Krit Lindsay DO Primary Care Provider [phone] Encounter Details Date Type Department Care Team (Late st Contact Info) Description 08/21/2021 Orders Only [facility] Oncology [address] 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
--- OUTSIDE RECORDS SUMMARY | 2024-11-22 13:01 | XMS_ITS | Encounter Summary ---
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 [facility] ALT 823(H) 7 - 55 Units/L [facility] AST 86(H) 10 - 50 Units/L [facility] Blood 09/10/2021 12:5 4 AM CDT 09/10/2021 1:26 AM CDT us Jerry Carpenter MD LAB BLOOD ORDERABLES Final Resul t Performing Organization Address [facility] de Phone Number [facility] Department of [employer] [place] [address] * Tacrolimus level trough (09/10/2021 12:54 AM CDT) [facility] Tacrolimus trough 2.9 ng/mL [facility] Comment: Interpretive Data Testing performed by [...] AM CDT 09/10/2021 1:26 AM CDT Narrative [facility] - 09/10/2021 7:20 AM CDT Draw within 30 minutes of AM dose. us Jerry Carpenter MD LAB BLOOD ORDERABLES Final Resul t Performing Organization Address [facility] de Phone Number [facility] [place] [address] * Phosphorus (09/10/2021 12:54 AM CDT) Phosphorus, pl 2.6 2.3 - 4.5 mg/dL [facility] Blood 09/10/2021 12:5 4 AM CDT 09/10/2021 1:26 AM CDT Jerry Carpenter MD LAB BLOOD ORDERABLES Final Resul t [facility] [place] [address] * Magnesium (09/10/2021 12:54 AM CDT) [facility] Signature Magnesium 1.6 1.4 - 2.5 mg/dL [facility] Blood 09/10/2021 12:5 4 AM CDT 09/10/2021 1:26 AM CDT Jerry Carpenter MD LAB BLOOD ORDERABLES Final Resul t Performing Organization Address City/[facility]/ZIP Co de Phone Number [facility] [place] [address] * POCT glucose (09/09/2021 9:37 PM CDT) Glucose, POC 171 70 - 199 mg/dL [facility] Blood 09/09/2021 9:37 PM CDT 09/09/2021 9:37 PM CDT Anaid Kruse MD LAB POCT ORDERABLES - DEVICE Final Result Performing Organization Address City/[facility]/ZIP Co de Phone Number [facility] [place] [address] * POCT glucose (09/09/2021 7:01 PM CDT) Glucose, POC 180 70 - 199 mg/dL [facility] Blood 09/09/2021 7:01 PM CDT 09/09/2021 7:01 PM CDT Anaid Kruse MD LAB POCT ORDERABLES - DEVICE Final Result Performing Organization Address [facility] Co de Phone Number [facility] [employer] [place] [place] [address] * POCT glucose (09/09/2021 12:10 PM CDT) Glucose, POC 114 70 - 199 mg/dL [facility] Blood 09/09/2021 12:1 0 PM CDT 09/09/2021 12:10 PM CDT Anaid Kruse MD LAB POCT ORDERABLES - DEVICE Final Result Performing Organization Address [facility] Co de Phone Number [facility] [employer] [place] [place] [address] * POCT glucose (09/09/2021 8:10 AM CDT) [facility] Signature Glucose, POC 119 70 - 199 mg/dL [facility] Blood 09/09/2021 8:10 AM CDT 09/09/2021 8:10 AM CDT Anaid Kruse MD LAB POCT ORDERABLES - DEVICE Final Result Performing Organization Address [facility] [place] [address] * (ABNORMAL) eGFR (09/09/2021 3:10 AM CDT) eGFR 85(L) 90 - 130 mL/min/1.7 3 m2 [facility] Comment: Interpretive Data Reference Interval Normal [...] Kruse MD LAB BLOOD ORDERABLES Final Result [facility] [place] [address] * (ABNORMAL) Comprehensive metabolic panel (09/09/2021 3:10 AM CDT) Sodium 137 135 - 145 mmol/L [facility] Potassium, pl 3.7 3.3 - 4.9 mmol/L [facility] Chloride 97 97 - 110 mmol/L [facility] CO2 30 22 - 32 mmol/L [facility] Anion gap 10 2 - 15 mmol/L [facility] BUN 23 8 - 25 mg/dL [facility] Creatinine 1.00 0.80 - 1.30 mg/dL [facility] Glucose 159 70 - 199 mg/dL [facility] Comment: Interpretive Data Fasting glucose >/= [...] 2017. Calcium 8.9 8.5 - 10.3 mg/dL [facility] Bilirubin, total 1.9(H) 0.1 - 1.2 mg/dL [facility] Protein, pl 6.4(L) 6.5 - 8.5 g/dL [facility] Albumin 3.2(L) 3.5 - 5.0 g/dL [facility] Alk phos 303(H) 40 - 130 Units/L [facility] ALT 1,057(H) 7 - 55 Units/L [facility] AST 98(H) 10 - 50 Units/L [facility] Blood 09/09/2021 3:10 AM CDT 09/09/2021 3:22 AM CDT us Anaid Kruse MD LAB BLOOD ORDERABLES Final Result Performing Organization Address City/[facility] Co de Phone Number [facility] [place] [address] * (ABNORMAL) Phosphorus (09/09/2021 3:10 AM CDT) [facility] Phosphorus, pl 0.9(L) 2.3 - 4.5 mg/dL [facility] Blood 09/09/2021 3:10 AM CDT 09/09/2021 3:22 AM CDT us Anaid Kruse MD LAB BLOOD ORDERABLES Final Result [facility] [place] [address] * Magnesium (09/09/2021 3:10 AM CDT) [facility] Magnesium 1.5 1.4 - 2.5 mg/dL [facility] Blood 09/09/2021 3:10 AM CDT 09/09/2021 3:22 AM CDT us Anaid Kruse MD LAB BLOOD ORDERABLES Final Result Performing Organization Address [facility] Co de Phone Number [facility] Department [place] [address] * Lipase (09/09/2021 3:10 AM CDT) [facility] Lipase 95 10 - 99 Units/L [facility] Blood 09/09/2021 3:10 AM CDT 09/09/2021 3:22 AM CDT us Anaid Kruse MD LAB BLOOD ORDERABLES Final Result Performing Organization Address [facility] Co de Phone Number [facility] [place] [address] * (ABNORMAL) Manual Differential (09/09/2021 12:35 AM CDT) [facility] Differential Manual [facility] Cells Counted 114 [facility] Neutrophil abs 14.8(H) 1.7 - 6.5 K/cumm [facility] Imm gran abs 0.0 0.0 - 0.1 K/cumm [facility] Lymphocyte abs 1.0 0.8 - 3.3 K/cumm [facility] Monocyte abs 0.3 0.2 - 0.8 K/cumm [facility] Eosinophil abs 0.2 0.0 - 0.5 K/cumm [facility] Neutrophil pct 91.2 % [facility] Comment: Interpretive Data Percent cell count reference ranges are not reported, since discordance with absolute values may lead to misinterpretation of CBC data. Current Interpretive Data was last revised on 2018. Lymphocyte pct 6.1 % [facility] Comment: Interpretive Data Percent cell count reference ranges are not reported, since discordance with absolute values may lead to misinterpretation of CBC data. Current Interpretive Data was last revised on 2018. Monocyte pct 1.8 % [facility] Comment: Interpretive Data Percent cell count reference ranges are not reported, since discordance with absolute values may lead to misinterpretation of CBC data. Current Interpretive Data was last revised on 2018. Eosinophil pct 0.9 % [facility] Comment: Interpretive Data Percent cell count reference ranges are not reported, since discordance with absolute values may lead to misinterpretation of CBC data. Current Interpretive Data was last revised on 2018. RBC morphology Present(A) [facility] Anisocytosis Moderate(A ) [facility] Poikilocytosis Moderate(A ) [facility] Macrocytes 8-15/HPF(A ) [facility] Platelet estimate Decreased( A) [facility] Blood 09/09/2021 12:3 5 AM CDT 09/09/2021 12:53 AM CDT us Jerry Carpenter MD LAB BLOOD ORDERABLES Edited Resu lt - Final [facility] [place] [address] * (ABNORMAL) CBC without differential (09/09/2021 12:35 AM CDT) WBC 16.2(H) 3.8 - 9.9 K/cumm [facility] Hgb 12.2(L) 13.0 - 17.5 g/dL [facility] Hct 33.7(L) 38.9 - 50.3 % [facility] Plt 122(L) 150 - 400 K/cumm [facility] MPV 14.0(H) 9.1 - 12.3 fL [facility] RBC 3.40(L) 4.30 - 5.80 M/cumm [facility] MCV 99.1(H) 81.3 - 96.4 fL [facility] MCH 35.9(H) 27.1 - 33.3 pg [facility] MCHC 36.2(H) 32.3 - 35.7 g/dL [facility] RDW CV 16.7(H) 11.1 - 14.9 % [facility] RDW SD 57.6(H) 35.7 - 48.1 fL [facility] NRBC abs 0.67(H) 0.00 - 0.01 K/cumm [facility] Blood 09/09/2021 12:3 5 AM CDT 09/09/2021 12:53 AM CDT Jerry Carpenter MD LAB BLOOD ORDERABLES Final Resul t Performing Organization Address City/[facility]/ZIP Co de Phone Number [facility] Department [place] [address] * POCT glucose (09/08/2021 9:24 PM CDT) Glucose, POC 150 70 - 199 mg/dL [facility] Blood 09/08/2021 9:24 PM CDT 09/08/2021 9:24 PM CDT us Anaid Kruse MD LAB POCT ORDERABLES - DEVICE Final Result [facility] Department of [employer] [place] [place] [address] * POCT glucose (09/08/2021 5:56 PM CDT) Glucose, POC 143 70 - 199 mg/dL [facility] Blood 09/08/2021 5:56 PM CDT 09/08/2021 5:56 PM CDT us Anaid Kruse MD LAB POCT ORDERABLES - DEVICE Final Result Performing Organization Address [facility] [place] [address] * POCT glucose (09/08/2021 12:30 PM CDT) Glucose, POC 162 70 - 199 mg/dL [facility] Blood 09/08/2021 12:3 0 PM CDT 09/08/2021 12:30 PM CDT Anaid Kruse MD LAB POCT ORDERABLES - DEVICE Final Result Performing Organization Address [facility] Co de Phone Number [facility] [place] [address] * POCT glucose (09/08/2021 8:58 AM CDT) Glucose, POC 109 70 - 199 mg/dL [facility] Blood 09/08/2021 8:58 AM CDT 09/08/2021 8:58 AM CDT Anaid Kruse MD LAB POCT ORDERABLES - DEVICE Final Result Performing Organization Address [facility] Co de Phone Number [facility] [place] [employer] [place] [place] [address] * eGFR (09/08/2021 4:47 AM CDT) eGFR >90 90 - 130 mL/min/1.7 3 m2 [facility] Comment: Interpretive Data Reference Interval Normal [...] BLOOD ORDERABLES Final Resul t [facility] [place] [address] * (ABNORMAL) Manual Differential (09/08/2021 4:47 AM CDT) Differential Manual [facility] Cells Counted 114 [facility] Neutrophil abs 14.1(H) 1.7 - 6.5 K/cumm [facility] Imm gran abs 0.0 0.0 - 0.1 K/cumm [facility] Lymphocyte abs 1.4 0.8 - 3.3 K/cumm [facility] Monocyte abs 0.1(L) 0.2 - 0.8 K/cumm [facility] Eosinophil abs 0.3 0.0 - 0.5 K/cumm [facility] Neutrophil pct 88.5 % [facility] Comment: Interpretive Data Percent cell count reference ranges are not reported, since discordance with absolute values may lead to misinterpretation of CBC data. Current Interpretive Data was last revised on 2018. Lymphocyte pct 8.8 % [facility] Comment: Interpretive Data Percent cell count reference ranges are not reported, since discordance with absolute values may lead to misinterpretation of CBC data. Current Interpretive Data was last revised on 2018. Monocyte pct 0.9 % [facility] Comment: Interpretive Data Percent cell count reference ranges are not reported, since discordance with absolute values may lead to misinterpretation of CBC data. Current Interpretive Data was last revised on 2018. Eosinophil pct 1.8 % [facility] Comment: Interpretive Data Percent cell count reference ranges are not reported, since discordance with absolute values may lead to misinterpretation of CBC data. Current Interpretive Data was last revised on 2018. RBC morphology Present(A) [facility] Polychromasia 3-7/HPF(A) [facility] Anisocytosis Marked(A) [facility] Poikilocytosis Moderate(A ) [facility] Macrocytes > 15/HPF(A) [facility] Schistocytes 1-2/HPF(A) [facility] Target cells 8-15/HPF(A ) [facility] Platelet estimate Decreased( A) [facility] Blood 09/08/2021 4:47 AM CDT 09/08/2021 5:17 AM CDT us Jerry Carpenter MD LAB BLOOD ORDERABLES Edited Resu lt - Final [facility] [place] [address] * (ABNORMAL) CBC without differential (09/08/2021 4:47 AM CDT) WBC 15.9(H) 3.8 - 9.9 K/cumm [facility] Hgb 11.1(L) 13.0 - 17.5 g/dL [facility] Hct 31.2(L) 38.9 - 50.3 % [facility] Plt 126(L) 150 - 400 K/cumm [facility] MPV 11.5 9.1 - 12.3 fL [facility] RBC 3.21(L) 4.30 - 5.80 M/cumm [facility] MCV 97.2(H) 81.3 - 96.4 fL [facility] MCH 34.6(H) 27.1 - 33.3 pg [facility] MCHC 35.6 32.3 - 35.7 g/dL [facility] RDW CV 15.0(H) 11.1 - 14.9 % [facility] RDW SD 53.4(H) 35.7 - 48.1 fL [facility] NRBC abs 0.42(H) 0.00 - 0.01 K/cumm [facility] Blood 09/08/2021 4:47 AM CDT 09/08/2021 5:17 AM CDT us Jerry Carpenter MD LAB BLOOD ORDERABLES Final Resul t Performing Organization Address City/[facility]/ZIP Co de Phone Number [facility] Department [place] [address] * (ABNORMAL) Lipase (09/08/2021 4:47 AM CDT) Pathologist [facility] Lipase 313(H) 10 - 99 Units/L [facility] Blood 09/08/2021 4:47 AM CDT 09/08/2021 5:17 AM CDT us Jerry Carpenter MD LAB BLOOD ORDERABLES Final Resul t Performing Organization Address City/[facility]/ZIP Co de Phone Number [facility] Department [place] [address] * (ABNORMAL) Comprehensive metabolic panel (09/08/2021 4:47 AM CDT) [facility] Sodium 141 135 - 145 mmol/L [facility] Potassium, pl 4.1 3.3 - 4.9 mmol/L [facility] Comment:Hemolyzed; Potassium value may be falsely elevated by as much as 0.3-0.5 mmol/L. Suggest redraw and reanalysis. Chloride 105 97 - 110 mmol/L [facility] CO2 29 22 - 32 mmol/L [facility] Anion gap 7 2 - 15 mmol/L [facility] BUN 29(H) 8 - 25 mg/dL [facility] Creatinine 0.87 0.80 - 1.30 mg/dL [facility] Glucose 156 70 - 199 mg/dL [facility] Comment: Interpretive Data Fasting glucose >/= [...] 2017. Calcium 8.4(L) 8.5 - 10.3 mg/dL [facility] Bilirubin, total 2.4(H) 0.1 - 1.2 mg/dL [facility] Protein, pl 5.3(L) 6.5 - 8.5 g/dL [facility] Albumin 2.7(L) 3.5 - 5.0 g/dL [facility] Alk phos 179(H) 40 - 130 Units/L [facility] ALT 1,335(H) 7 - 55 Units/L [facility] AST 160(H) 10 - 50 Units/L [facility] Comment:Hemolyzed; result ma y be falsely elevated Blood 09/08/2021 4:47 AM CDT 09/08/2021 5:17 AM CDT us Jerry Carpenter MD LAB BLOOD ORDERABLES Final Resul t [facility] Department [place] [address] * (ABNORMAL) Phosphorus (09/08/2021 4:47 AM CDT) Phosphorus, pl 1.2(L) 2.3 - 4.5 mg/dL [facility] Blood 09/08/2021 4:47 AM CDT 09/08/2021 5:17 AM CDT us Jerry Carpenter MD LAB BLOOD ORDERABLES Final Resul t Performing Organization Address [facility] de Phone Number [facility] [place] [address] * Magnesium (09/08/2021 4:47 AM CDT) Magnesium 1.7 1.4 - 2.5 mg/dL [facility] Blood 09/08/2021 4:47 AM CDT 09/08/2021 5:17 AM CDT us Jerry Carpenter MD LAB BLOOD ORDERABLES Final Resul t Performing Organization Address [facility] de Phone Number [facility] [place] [place] [address] * (ABNORMAL) Urinalysis, microscopic only (09/08/2021 2:15 AM CDT) WBC, ur 0-5 0 - 5 /HPF [facility] RBC, ur 3-5(A) 0 - 2 /HPF [facility] Mucous, ur Present(A) [facility] Hyaline casts, ur 1-5 0 - 10 /LPF [facility] Culture Reflex Comment Reflex conditions for urine culture (WBC >10) not met. [facility] Urine 09/08/2021 2:15 AM CDT 09/08/2021 2:28 AM CDT us Jerry Carpenter MD LAB URINE ORDERABLES Final Resul t Performing Organization Address [facility] de Phone Number [facility] [place] [address] * (ABNORMAL) Urinalysis reflex to microscopic and culture Urine (09/08/2021 2:15 AM CDT) Pathologist [facility] Color, ur Yellow Yellow [facility] Clarity, ur Clear Clear [facility] Specific gravity, ur >1.042(H) 1.003 - 1.030 [facility] pH, urine 6 [facility] Protein, ur ql 1+(A) Negative [facility] Glucose, ur ql 3+(A) Negative [facility] Ketones, ur 1+(A) Negative [facility] Bilirubin, ur Negative Negative [facility] Blood, ur Negative Negative [facility] Urobilinogen, ur 2.0(A) <2.0 mg/dL [facility] Nitrite, ur Negative Negative [facility] Leukocyte esterase, ur Negative Negative [facility] UA reflex comment Reflex to microscopic UA will be performed. [facility] Urine 09/08/2021 2:15 AM CDT 09/08/2021 2:15 AM CDT Narrative [facility] - 09/08/2021 3:35 AM CDT Obtain with INITIAL infection work up. Urine pH is affected by diet, medications, systemic acid-base disturbances, and renal tubular function. ??pH may affect urinary stone formation. ??For example, urine pH below 6.0 may help reduce the tendency for calcium phosphate stones and pH greater than 6.0 may reduce the tendency for uric acid stone formation. Source: [facility] [employer]. Last revised 11-28-2017 us Jerry Carpenter MD LAB MICROBIOLOGY - GENERAL ORDER SUBHA Final Result [facility] [place] [address] * (ABNORMAL) eGFR (09/07/2021 10:06 PM CDT) [facility] eGFR 87(L) 90 - 130 mL/min/1.7 3 m2 [facility] Comment: Interpretive Data Reference Interval Normal [...] BLOOD ORDERABLES Final Resul t [facility] [place] [address] * (ABNORMAL) Manual Differential (09/07/2021 10:06 PM CDT) Differential Manual [facility] Cells Counted 116 [facility] Neutrophil abs 14.8(H) 1.7 - 6.5 K/cumm [facility] Imm gran abs 0.0 0.0 - 0.1 K/cumm [facility] Lymphocyte abs 0.6(L) 0.8 - 3.3 K/cumm [facility] Monocyte abs 1.0(H) 0.2 - 0.8 K/cumm [facility] Eosinophil abs 0.2 0.0 - 0.5 K/cumm [facility] Neutrophil pct 89.7 % [facility] Comment: Interpretive Data Percent cell count reference ranges are not reported, since discordance with absolute values may lead to misinterpretation of CBC data. Current Interpretive Data was last revised on 2018. Lymphocyte pct 3.4 % [facility] Comment: Interpretive Data Percent cell count reference ranges are not reported, since discordance with absolute values may lead to misinterpretation of CBC data. Current Interpretive Data was last revised on 2018. Monocyte pct 6.0 % [facility] Comment: Interpretive Data Percent cell count reference ranges are not reported, since discordance with absolute values may lead to misinterpretation of CBC data. Current Interpretive Data was last revised on 2018. Eosinophil pct 0.9 % [facility] Comment: Interpretive Data Percent cell count reference ranges are not reported, since discordance with absolute values may lead to misinterpretation of CBC data. Current Interpretive Data was last revised on 2018. RBC morphology Present(A) [facility] Polychromasia 3-7/HPF(A) [facility] Anisocytosis Marked(A) [facility] Poikilocytosis Slight(A) [facility] Macrocytes > 15/HPF(A) [facility] Target cells 3-7/HPF(A) [facility] Echinocytes 3-7/HPF(A) [facility] Platelet estimate Adequate [facility] Blood 09/07/2021 10:0 6 PM CDT 09/07/2021 10:14 PM CDT us Jerry Carpenter MD LAB BLOOD ORDERABLES Final Resul t [facility] [place] [address] * (ABNORMAL) CBC without differential (09/07/2021 10:06 PM CDT) WBC 16.5(H) 3.8 - 9.9 K/cumm [facility] Hgb 13.9 13.0 - 17.5 g/dL [facility] Hct 40.7 38.9 - 50.3 % [facility] Plt 173 150 - 400 K/cumm [facility] MPV 11.1 9.1 - 12.3 fL [facility] RBC 4.18(L) 4.30 - 5.80 M/cumm [facility] MCV 97.4(H) 81.3 - 96.4 fL [facility] MCH 33.3 27.1 - 33.3 pg [facility] MCHC 34.2 32.3 - 35.7 g/dL [facility] RDW CV 15.0(H) 11.1 - 14.9 % [facility] RDW SD 53.8(H) 35.7 - 48.1 fL [facility] NRBC abs 0.33(H) 0.00 - 0.01 K/cumm [facility] Blood 09/07/2021 10:0 6 PM CDT 09/07/2021 10:14 PM CDT us Jerry Carpenter MD LAB BLOOD ORDERABLES Final Resul t Performing Organization Address City/[facility] de Phone Number [facility] Department of [employer] [place] [address] * (ABNORMAL) Fibrinogen (09/07/2021 10:06 PM CDT) Fibrinogen 499(H) 170 - 400 mg/dL [facility] Blood 09/07/2021 10:0 6 PM CDT 09/07/2021 10:14 PM CDT us Jerry Carpenter MD LAB BLOOD ORDERABLES Final Resul t Performing Organization Address City/[facility] de Phone Number [facility] [place] [employer] [place] [address] * aPTT (09/07/2021 10:06 PM CDT) aPTT 29 27 - 37 sec [facility] Comment: Interpretive Data Therapeutic heparin range: 60.0 - 94.0 seconds. Based on correlation with therapeutic heparin activity range of 0.3-0.7 Units/mL. Current interpretive data was last revised on 2021. Blood 09/07/2021 10:0 6 PM CDT 09/07/2021 10:14 PM CDT us Jerry Carpenter MD LAB BLOOD ORDERABLES Final Resul t Performing Organization Address City/[facility] Co de Phone Number [facility] [place] [place] [address] * Protime-INR (09/07/2021 10:06 PM CDT) PT 13.1 9.5 - 13.6 sec [facility] INR 1.2 0.9 - 1.2 [facility] Comment: Interpretive data Oral anticoagulant therapeutic [...] ORDERABLES Final Resul t Performing Organization Address [facility] [place] [address] * Uric acid (09/07/2021 10:06 PM CDT) Pathologist [facility] Uric acid 5.3 3.0 - 8.0 mg/dL [facility] Blood 09/07/2021 10:0 6 PM CDT 09/07/2021 10:14 PM CDT us Jerry Carpenter MD LAB BLOOD ORDERABLES Final Resul t Performing Organization Address [facility] Co de Phone Number [facility] [place] [address] * (ABNORMAL) Lactate dehydrogenase (LD) (09/07/2021 10:06 PM CDT) Lactate dehydrogenase (LDH) 294(H) 100 - 250 Units/L [facility] Blood 09/07/2021 10:0 6 PM CDT 09/07/2021 10:14 PM CDT us Jerry Carpenter MD LAB BLOOD ORDERABLES Final Resul t Performing Organization Address City/[facility] Co de Phone Number [facility] Department [place] [address] * (ABNORMAL) Phosphorus (09/07/2021 10:06 PM CDT) Pathologist [facility] Phosphorus, pl 1.3(L) 2.3 - 4.5 mg/dL [facility] Blood 09/07/2021 10:0 6 PM CDT 09/07/2021 10:14 PM CDT us Jerry Carpenter MD LAB BLOOD ORDERABLES Final Resul t Performing Organization Address [facility] Co de Phone Number [facility] [place] [employer] [place] [address] * Magnesium (09/07/2021 10:06 PM CDT) Pathologist [facility] Magnesium 1.7 1.4 - 2.5 mg/dL [facility] Blood 09/07/2021 10:0 6 PM CDT 09/07/2021 10:14 PM CDT us Jerry Carpenter MD LAB BLOOD ORDERABLES Final Resul t Performing Organization Address City/[facility] Co de Phone Number [facility] [employer] [place] [address] * (ABNORMAL) Comprehensive metabolic panel (09/07/2021 10:06 PM CDT) Sodium 144 135 - 145 mmol/L [facility] Potassium, pl 4.2 3.3 - 4.9 mmol/L [facility] Chloride 100 97 - 110 mmol/L [facility] CO2 33(H) 22 - 32 mmol/L [facility] Anion gap 11 2 - 15 mmol/L [facility] BUN 28(H) 8 - 25 mg/dL [facility] Creatinine 0.98 0.80 - 1.30 mg/dL [facility] Glucose 244(H) 70 - 199 mg/dL [facility] Comment: Interpretive Data Fasting glucose >/= [...] 9.2 8.5 - 10.3 mg/dL [facility] Bilirubin, total 3.3(H) 0.1 - 1.2 mg/dL [facility] Protein, pl 6.7 6.5 - 8.5 g/dL [facility] Albumin 3.5 3.5 - 5.0 g/dL [facility] Alk phos 214(H) 40 - 130 Units/L [facility] ALT 2,063(H) 7 - 55 Units/L [facility] AST 263(H) 10 - 50 Units/L [facility] Blood 09/07/2021 10:0 6 PM CDT 09/07/2021 10:14 PM CDT us Jerry Carpenter MD LAB BLOOD ORDERABLES Final Resul t [facility] Department [place] [address] * ECG 12 lead (09/07/2021 10:03 PM CDT) Ventricular Rate EKG/Min 72 BPM [facility] Atrial Rate 72 BPM [facility] OR-Interval (MSEC) 136 ms [facility] QRS-Interval (MSEC) 86 ms [facility] QT-Interval (MSEC) 372 ms [facility] QTc 407 ms [facility] R Marshall 82 degrees [facility] T Marshall 73 degrees [facility] Diagnosis Normal sinus rhythm Nonspecific T wave abnormality Abnormal ECG When compared with ECG of 17-AUG-2021 13:08, Nonspecific T wave abnormality now evident in Inferior leads Nonspecific T wave abnormality, worse in Lateral leads Confirmed by NGOZI MILES M.D ([id number]) on 09/08/2021 1:32:25 PM [facility] 09/07/2021 10:0 3 PM CDT 09/08/2021 1:32 PM CDT Jerry Carpenter MD ECG ORDERABLES Final Result Performing Organization Address City/[facility]/ZIP Co de Phone Number [facility] * (ABNORMAL) POCT glucose (09/07/2021 9:24 PM CDT) [facility] Glucose, POC 228(H) 70 - 199 mg/dL [facility] Blood 09/07/2021 9:24 PM CDT 09/07/2021 9:24 PM CDT Anaid Kruse MD LAB POCT ORDERABLES - DEVICE Final Result Performing Organization Address City/[facility] Co de Phone Number [facility] [place] [address] * X-ray chest 1 view (Portable) (09/07/2021 [...] (ABNORMAL) POCT glucose (09/07/2021 6:55 PM CDT) [facility] Glucose, POC 210(H) 70 - 199 mg/dL [facility] Blood 09/07/2021 6:55 PM CDT 09/07/2021 6:55 PM CDT Tay Charlton MD LAB POCT ORDERABLES - JULIO CE Final Result Performing Organization Address [facility]/State/ZIP Co de Phone Number [facility] [place] [address] * Prepare RBC: 1 Units (09/07/2021 5:36 PM CDT) [facility] Product code [id number] [facility] Unit Number [id number] 8-7 [facility] Product Blood Type APOS [facility] Dispense Status RETURNED [facility] Blood 09/07/2021 5:36 PM CDT 09/07/2021 5:39 PM CDT Narrative [facility] - 09/08/2021 9:07 AM CDT Other indication->3g hgb drop today, no source Are special requirements needed? (all products are leukoreduced)->No Date required:-[id number] LRRBC # of [id number] Reasons:-Other (specify)} Michael Parham MD BLOOD BANK PRODUCT ORDERA BLES Final Result Performing Organization Address City/[facility] de Phone Number [facility] [place] [place] [address] * POC Blood Gas and Chemistries, Arterial - (09/07/2021 5:19 PM CDT) [facility] Lactate, POC 2.0 0.7 - 2.2 mmol/L [facility] Blood 09/07/2021 5:19 PM CDT 09/07/2021 5:19 PM CDT Tay Charlton MD LAB POCT ORDERABLES - JULIO CE Final Result Performing Organization Address [facility] de Phone Number [facility] [place] [address] * (ABNORMAL) POCT glucose (09/07/2021 4:51 PM CDT) [facility] Glucose, POC 212(H) 70 - 199 mg/dL [facility] Glucose comment 1 Doctor Notified [facility] Blood 09/07/2021 4:51 PM CDT 09/07/2021 4:51 PM CDT us Tay Charlton MD LAB POCT ORDERABLES - JULIO CE Final Result Performing Organization Address [facility] de Phone Number [facility] [place] [address] * eGFR (09/07/2021 4:49 PM CDT) [facility] eGFR >90 90 - 130 mL/min/1.7 3 m2 [facility] Comment: Interpretive Data Reference Interval Normal [...] MD LAB BLOOD ORDERABLES Pilar armas Result [facility] [place] [address] * (ABNORMAL) Differential, auto (09/07/2021 4:49 PM CDT) Pathologist [facility] Neutrophil abs 14.5(H) 1.7 - 6.5 K/cumm [facility] Imm gran abs 0.2(H) 0.0 - 0.1 K/cumm [facility] Lymphocyte abs 1.6 0.8 - 3.3 K/cumm [facility] Monocyte abs 0.6 0.2 - 0.8 K/cumm [facility] Eosinophil abs 0.0 0.0 - 0.5 K/cumm [facility] Basophil abs 0.1 0.0 - 0.1 K/cumm [facility] Neutrophil pct 85.1 % [facility] Comment: Interpretive Data Percent cell count reference ranges are not reported, since discordance with absolute values may lead to misinterpretation of CBC data. Current Interpretive Data was last revised on 2018. Imm gran pct 1.4 % [facility] Comment: Interpretive Data Percent cell count reference ranges are not reported, since discordance with absolute values may lead to misinterpretation of CBC data. Current Interpretive Data was last revised on 2018. Lymphocyte pct 9.5 % [facility] Comment: Interpretive Data Percent cell count reference ranges are not reported, since discordance with absolute values may lead to misinterpretation of CBC data. Current Interpretive Data was last revised on 2018. Monocyte pct 3.5 % [facility] Comment: Interpretive Data Percent cell count reference ranges are not reported, since discordance with absolute values may lead to misinterpretation of CBC data. Current Interpretive Data was last revised on 2018. Eosinophil pct 0.1 % [facility] Comment: Interpretive Data Percent cell count reference ranges are not reported, since discordance with absolute values may lead to misinterpretation of CBC data. Current Interpretive Data was last revised on 2018. Basophil pct 0.4 % [facility] Comment: Interpretive Data Percent cell count reference ranges are not reported, since discordance with absolute values may lead to misinterpretation of CBC data. Current Interpretive Data was last revised on 2018. Blood 09/07/2021 4:49 PM CDT 09/07/2021 5:08 PM CDT us Michael Parham MD LAB BLOOD ORDERABLES Pilar l Result [facility] [place] [address] * (ABNORMAL) Comprehensive metabolic panel (09/07/2021 4:49 PM CDT) Sodium 142 135 - 145 mmol/L [facility] Potassium, pl 3.9 3.3 - 4.9 mmol/L [facility] Chloride 103 97 - 110 mmol/L [facility] CO2 30 22 - 32 mmol/L [facility] Anion gap 9 2 - 15 mmol/L [facility] BUN 29(H) 8 - 25 mg/dL [facility] Creatinine 0.86 0.80 - 1.30 mg/dL [facility] Glucose 242(H) 70 - 199 mg/dL [facility] Comment: Interpretive Data Fasting glucose >/= [...] 9.1 8.5 - 10.3 mg/dL [facility] Bilirubin, total 3.1(H) 0.1 - 1.2 mg/dL [facility] Protein, pl 6.4(L) 6.5 - 8.5 g/dL [facility] Albumin 3.3(L) 3.5 - 5.0 g/dL [facility] Alk phos 190(H) 40 - 130 Units/L [facility] ALT 2,123(H) 7 - 55 Units/L [facility] AST 352(H) 10 - 50 Units/L [facility] Blood 09/07/2021 4:49 PM CDT 09/07/2021 5:09 PM CDT us Michael Parham MD LAB BLOOD ORDERABLES Pilar armas Result [facility] Department [place] [address] * (ABNORMAL) CBC with auto differential (09/07/2021 4:49 PM CDT) [facility] WBC 17.0(H) 3.8 - 9.9 K/cumm [facility] Hgb 13.5 13.0 - 17.5 g/dL [facility] Hct 38.8(L) 38.9 - 50.3 % [facility] Plt 173 150 - 400 K/cumm [facility] MPV 10.8 9.1 - 12.3 fL [facility] RBC 3.99(L) 4.30 - 5.80 M/cumm [facility] MCV 97.2(H) 81.3 - 96.4 fL [facility] MCH 33.8(H) 27.1 - 33.3 pg [facility] MCHC 34.8 32.3 - 35.7 g/dL [facility] RDW CV 14.8 11.1 - 14.9 % [facility] RDW SD 52.9(H) 35.7 - 48.1 fL [facility] NRBC abs 0.24(H) 0.00 - 0.01 K/cumm [facility] Blood 09/07/2021 4:49 PM CDT 09/07/2021 5:08 PM CDT Michael Parham MD LAB BLOOD ORDERABLES Pilar l Result [facility] [place] [address] * FL ERCP Biliary Duct (09/07/2021 2:34 PM CDT) Narrative [facility] - 09/07/2021 2:34 PM CDT The images from this study are not interpreted by Radiology. ??Please refer to the physician's procedure / OR operative note. Tay Charlton MD IMG FLUOROSCOPY PROCEDURES Final Result Performing Organization Address [facility]/ZIP Co de Phone Number [email or web address] * (ABNORMAL) POCT glucose (09/07/2021 1:34 PM CDT) Glucose, POC 216(H) 70 - 199 mg/dL [facility] Blood 09/07/2021 1:34 PM CDT 09/07/2021 1:34 PM CDT Tay Charlton MD LAB POCT ORDERABLES - JULIO CE Final Result [facility] [place] [address] * ERCP (09/07/2021 1:04 PM CDT) Anatomical Region Laterality Modality Other Narrative Procedure Note Tay Charlton MD - 09/07/2021 1:04 PM CDT [facility] Patient Name: Brady Jones Procedure Date: 09/07/2021 1:04 PM Date of : 1965 Admit Type: Outpatient Age: 55 Gender: Male Attending MD: Tay Charlton M.D. Room: [facility] 2 Note Status: Finalized Procedure: [...] were discussed and informed consentwas obtained. The [id number] Duodenoscope wasintroduced through the mouth, and used to inject contrast into and used to inject contrast into the bile duct and ventral pancreatic duct. The GIF [id number] endoscope was introduced through the and used to inject contrast into. The ERCP was accomplished without difficulty. The patient tolerated the procedure well. Findings: The mellowing machine operator film was normal. The esophagus was successfully [...] through the upper GI tract. Hematin (altered blood/cikbim-xtxqff-wywp material) was found in the entire examined [...] esophagitis with no bleeding. - Hematin (altered blood/mztiuu-mpzqjh-eyjzxhreyqcu) in the entire stomach. - Non-bleeding duodenal [...] On: 09/07/2021 1:04 PM Recognized by the [employer] for promoting quality [...] organism identification may be performed using the [employer] Gram-Positive Blood Culture Assay. This assay detects microbial DNA in positive blood culture broth via hybridization of target DNA to capture oligonucleotides on a microarray. This assay has been cleared by the [place] Food and Drug Administration and its performance characteristics have been verified by the [facility] Microbiology [facility]. 5. ?For questions about this culture, contact the Microbiology Laboratory at [phone]. Interpretive data was last revised on 2020. us Parmjit Pelayo MD LAB MICROBIOLOGY - GENER AL ORDERABLES Final Result [facility] Department [place] [address] * Blood culture Blood (09/07/2021 10:19 AM CDT) Report Final Report: No growth [facility] Blood 09/07/2021 10:1 9 AM CDT 09/07/2021 [...] organism identification may be performed using the [employer] Gram-Positive Blood Culture Assay. This assay detects microbial DNA in positive blood culture broth via hybridization of target DNA to capture oligonucleotides on a microarray. This assay has been cleared by the [place] Food and Drug Administration and its performance characteristics have been verified by the [facility] Microbiology Laboratory. 5. ?For questions about this culture, contact the Microbiology Laboratory at [phone]. Interpretive data was last revised on 2020. Parmjit Pelayo MD LAB MICROBIOLOGY - [facility] ORDERABLES Final Result [facility] Department [place] [address] * (ABNORMAL) POCT glucose (09/07/2021 9:29 AM CDT) Glucose, POC 216(H) 70 - 199 mg/dL [facility] Blood 09/07/2021 9:29 AM CDT 09/07/2021 9:29 AM CDT Anaid Kruse MD LAB POCT ORDERABLES - DEVICE Final Result [facility] [place] [address] * US RUQ (09/07/2021 8:38 AM CDT) [...] cell transplant currently in remission. 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 ??Currently [...] the pancreas are normal. Dr. Neena Higginbotham (radiology interventional physician) personally participated in sonographic imaging of this patient. Procedure Note Kirt Cali MD - 09/07/2021 EXAMINATION: LIMITED ABDOMINAL SONOGRAM HISTORY: 55-year-old male with history of AML status post stem cell transplant currently in remission. 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 Currently [...] the pancreas are normal. Dr. Neena Higginbotham (radiology interventional physician) personally participated in sonographic imaging of this [...] Glucose, POC 287(H) 70 - 199 mg/dL [facility] Blood 09/07/2021 5:56 AM CDT 09/07/2021 5:56 AM CDT Anaid Kruse MD LAB POCT ORDERABLES - DEVICE Final Result [facility] [place] [address] * COVID-19 Coronavirus RNA Nasopharyngeal (09/07/2021 5:51 AM CDT) COVID-19 RNA Negative Negative [facility] Comment: Interpretive data: Synonyms for this test include: PCR and NAAT . ??This test is performed using the [employer] Xpert Xpress assay. This is a real-time [...] December 22, 2020. First COVID-19 test? No [facility] Employeed in healthcare? No [facility] status? No [facility] Group care resident? No [facility] Hospitalized? No [facility] Is patient in ICU? No [facility] Symptomatic as defined by CDC? No [facility] Nasopharyngeal 09/07/2021 5: 51 AM CDT 09/07/2021 6:23 AM CDT Narrative [facility] - 09/07/2021 7:13 AM CDT What is the reason for testing?->Bed placement or semi-private room us Cruz Shah MD LAB MICROBIOLOGY - GENERA L ORDERABLES Final Result [facility] [place] [address] * CT Chest PE (CTA) Abdomen Pelvis [...] POC 1.1 0.7 - 1.3 mg/dL [facility] Blood 09/07/2021 4:31 AM CDT 09/07/2021 4:31 AM CDT Notinfile Unknown LAB POCT ORDERABLES - DEVICE F inal Result Performing Organization Address [facility] Co de Phone Number [facility] [place] [address] * Erythrocyte sedimentation rate (09/07/2021 4:28 AM CDT) Erythrocyte sedimentation rate 10 1 - 20 mm/hr [facility] Blood 09/07/2021 4:28 AM CDT 09/07/2021 4:47 AM CDT Anaid Kruse MD LAB BLOOD ORDERABLES Final Result Performing Organization Address [facility] de Phone Number [facility] [place] [place] [address] * (ABNORMAL) CRP (acute phase) (09/07/2021 4:28 AM CDT) CRP 147.2(H) <=10.0 mg/L [facility] Blood 09/07/2021 4:28 AM CDT 09/07/2021 4:43 AM CDT Result [facility] Anaid Kruse MD LAB BLOOD ORDERABLES Final Result Performing Organization Address [facility] Co de Phone Number [facility] [place] [address] * (ABNORMAL) Bilirubin, direct (09/07/2021 4:28 AM CDT) Bilirubin, direct 1.6(H) 0.1 - 0.3 mg/dL [facility] Blood 09/07/2021 4:28 AM CDT 09/07/2021 4:44 AM CDT Anaid Kruse MD LAB BLOOD ORDERABLES Final Result Performing Organization Address [facility] [place] [address] * Acetaminophen level (09/07/2021 4:28 AM CDT) Acetaminophen 6.0 mcg/mL [facility] Comment: Interpretive Data Significant hepatic injury [...] BLOOD ORDERABLES Final Result Performing Organization Address [facility] [place] [address] * Tacrolimus level random (09/07/2021 4:28 AM CDT) Tacrolimus random <1.0 ng/mL [facility] Comment: Undetectable. ??Please verify that the [...] BLOOD ORDERABLES Final Result Performing Organization Address [facility] Co de Phone Number [facility] [place] [address] * (ABNORMAL) Creatine kinase (CK), total (09/07/2021 4:28 AM CDT) CK 39(L) 40 - 300 Units/L [facility] Blood 09/07/2021 4:28 AM CDT 09/07/2021 4:43 AM CDT Anaid Kruse MD LAB BLOOD ORDERABLES Final Result Performing Organization Address [facility] de Phone Number [facility] Department [place] [address] * (ABNORMAL) Triglycerides (09/07/2021 4:28 AM CDT) Triglycerides 233(H) <=149 mg/dL [facility] Comment: Interpretive Data Ages < or [...] BLOOD ORDERABLES Final Result Performing Organization Address [facility] Co de Phone Number [facility] [employer] [place] [place] [address] * Critical Result Callback Chemistry (09/07/2021 4:28 AM CDT) Date Notified [id number] [facility] Time Notified 519 [facility] TestName Lipase [facility] DENT Called/Read Back Cruz DENT Credentials MD [facility] DENT Called By celestina DENT Blood 09/07/2021 4:28 AM CDT 09/07/2021 4:43 AM CDT Anaid Kruse MD LAB BLOOD ORDERABLES Final Result Performing Organization Address [facility] [place] [address] * eGFR (09/07/2021 4:28 AM CDT) eGFR 90 90 - 130 mL/min/1.7 3 m2 [facility] Comment: Interpretive Data Reference Interval Normal [...] Kruse MD LAB BLOOD ORDERABLES Final Result [facility] [place] [address] * (ABNORMAL) Differential, auto (09/07/2021 4:28 AM CDT) Neutrophil abs 9.5(H) 1.7 - 6.5 K/cumm [facility] Imm gran abs 0.1 0.0 - 0.1 K/cumm [facility] Lymphocyte abs 1.1 0.8 - 3.3 K/cumm [facility] Monocyte abs 0.3 0.2 - 0.8 K/cumm [facility] Eosinophil abs 0.0 0.0 - 0.5 K/cumm [facility] Basophil abs 0.0 0.0 - 0.1 K/cumm [facility] Neutrophil pct 86.8 % [facility] Comment: Interpretive Data Percent cell count reference ranges are not reported, since discordance with absolute values may lead to misinterpretation of CBC data. Current Interpretive Data was last revised on 2018. Imm gran pct 0.8 % [facility] Comment: Interpretive Data Percent cell count reference ranges are not reported, since discordance with absolute values may lead to misinterpretation of CBC data. Current Interpretive Data was last revised on 2018. Lymphocyte pct 9.7 % [facility] Comment: Interpretive Data Percent cell count reference ranges are not reported, since discordance with absolute values may lead to misinterpretation of CBC data. Current Interpretive Data was last revised on 2018. Monocyte pct 2.4 % [facility] Comment: Interpretive Data Percent cell count reference ranges are not reported, since discordance with absolute values may lead to misinterpretation of CBC data. Current Interpretive Data was last revised on 2018. Eosinophil pct 0.1 % [facility] Comment: Interpretive Data Percent cell count reference ranges are not reported, since discordance with absolute values may lead to misinterpretation of CBC data. Current Interpretive Data was last revised on 2018. Basophil pct 0.2 % [facility] Comment: Interpretive Data Percent cell count reference ranges are not reported, since discordance with absolute values may lead to misinterpretation of CBC data. Current Interpretive Data was last revised on 2018. Blood 09/07/2021 4:28 AM CDT 09/07/2021 4:43 AM CDT Anaid Kruse MD LAB BLOOD ORDERABLES Final Result [facility] [place] [address] * (ABNORMAL) Lipase (09/07/2021 4:28 AM CDT) Lipase 650(C) 10 - 99 Units/L [facility] Blood 09/07/2021 4:28 AM CDT 09/07/2021 4:43 AM CDT Anaid Kruse MD LAB BLOOD ORDERABLES Final Result [facility] [employer] [place] [place] [address] * Hepatitis panel, acute (09/07/2021 4:28 AM CDT) Hep A IgM Nonreactive Nonreactive [facility] Comment: Interpretive Data: If Hep A IgM Ab is reported as Equivocal, a new sample should be drawn in two weeks for testing. Current interpretive data was last revised on 20. Hep B core IgM Nonreactive Nonreactive [facility] Comment: Interpretive Data If HepB Core IgM Ab is reported as Equivocal, a new sample should be drawn in two weeks for testing. Current interpretive data was last revised on 20. Hep C Ab Nonreactive Nonreactive [facility] Comment:Antibodies to HCV no t detected. Does NOT exclude the possibility of recent exposure to HCV. HepBsAg Nonreactive Nonreactive [facility] Blood 09/07/2021 4:28 AM CDT 09/07/2021 4:44 AM CDT us Anaid Kruse MD LAB MICROBIOL OGY - GENERAL ORDERABLES Edited Result - Final Performing Organization Address City/[facility]/ZIP Co de Phone Number [facility] [place] [address] * Ammonia (09/07/2021 4:28 AM CDT) Ammonia 21 5 - 50 mcmol/L [facility] Blood 09/07/2021 4:28 AM CDT 09/07/2021 4:38 AM CDT us Anaid Kruse MD LAB BLOOD ORDERABLES Final Result [facility] [place] [address] * Type and screen (09/07/2021 4:28 AM CDT) ABO Rh A Positive [facility] Ursula, indirect Negative [facility] Blood 09/07/2021 4:28 AM CDT 09/07/2021 4:36 AM CDT Narrative [facility] - 09/07/2021 5:38 AM CDT Has the patient had Daratumumab or Isatuximab in the past 6 months?->Unknown us Anaid Kruse MD LAB BLOOD BANK TEST O RDERABLES Final Result Performing Organization Address [facility] de Phone [place] [address] * (ABNORMAL) Protime-INR (09/07/2021 4:28 AM CDT) PT 14.9(H) 9.5 - 13.6 sec [facility] INR 1.3(H) 0.9 - 1.2 [facility] Comment: Interpretive data Oral anticoagulant therapeutic ranges: Venous thromboembolism prophylaxis or treatment: 2.0-3.0 CARDIOLOGY Standard range: 2.0-3.0 High-intensity range: 2.5-3.5 Refer to indication-specific guidelines for appropriate target ranges for prosthetic heart valve replacement. Current interpretive data was last revised on 2019. Blood 09/07/2021 4:28 AM CDT 09/07/2021 4:54 AM CDT us Anaid Kruse MD LAB BLOOD ORDERABLES Final Result Performing Organization Address [facility] [place] [address] * aPTT (09/07/2021 4:28 AM CDT) aPTT 28 27 - 37 sec [facility] Comment: Interpretive Data Therapeutic heparin range: 60.0 - 94.0 seconds. Based on correlation with therapeutic heparin activity range of 0.3-0.7 Units/mL. Current interpretive data was last revised on 2021. Blood 09/07/2021 4:28 AM CDT 09/07/2021 4:54 AM CDT us Anaid Kruse MD LAB BLOOD ORDERABLES Final Result [facility] [place] [address] * (ABNORMAL) Comprehensive metabolic panel (09/07/2021 4:28 AM CDT) Sodium 140 135 - 145 mmol/L [facility] Potassium, pl 5.0(H) 3.3 - 4.9 mmol/L [facility] Comment:Hemolyzed; Potassium value may be falsely elevated by as much as 0.3-0.5 mmol/L. Suggest redraw and reanalysis. Chloride 94(L) 97 - 110 mmol/L [facility] CO2 25 22 - 32 mmol/L [facility] Anion gap 21(H) 2 - 15 mmol/L [facility] BUN 34(H) 8 - 25 mg/dL [facility] Creatinine 0.95 0.80 - 1.30 mg/dL [facility] Glucose 319(H) 70 - 199 mg/dL [facility] Comment: Interpretive Data Fasting glucose >/= [...] Calcium 10.0 8.5 - 10.3 mg/dL [facility] Bilirubin, total 3.2(H) 0.1 - 1.2 mg/dL [facility] Protein, pl 7.9 6.5 - 8.5 g/dL [facility] Albumin 4.0 3.5 - 5.0 g/dL [facility] Alk phos 234(H) 40 - 130 Units/L [facility] ALT 3,535(H) 7 - 55 Units/L [facility] AST 1,047(H) 10 - 50 Units/L [facility] Comment:Hemolyzed; result ma y be falsely elevated Blood 09/07/2021 4:28 AM CDT 09/07/2021 4:44 AM CDT Anaid Kruse MD LAB BLOOD ORDERABLES Final Result Performing Organization Address [facility] Co de Phone Number [facility] [employer] [place] [address] * (ABNORMAL) CBC with auto differential (09/07/2021 4:28 AM CDT) [facility] WBC 11.0(H) 3.8 - 9.9 K/cumm [facility] Hgb 16.5 13.0 - 17.5 g/dL [facility] Hct 46.9 38.9 - 50.3 % [facility] Plt 202 150 - 400 K/cumm [facility] MPV 11.4 9.1 - 12.3 fL [facility] RBC 4.82 4.30 - 5.80 M/cumm [facility] MCV 97.3(H) 81.3 - 96.4 fL [facility] MCH 34.2(H) 27.1 - 33.3 pg [facility] MCHC 35.2 32.3 - 35.7 g/dL [facility] RDW CV 14.6 11.1 - 14.9 % [facility] RDW SD 51.8(H) 35.7 - 48.1 fL [facility] NRBC abs 0.11(H) 0.00 - 0.01 K/cumm [facility] Blood 09/07/2021 4:28 AM CDT 09/07/2021 4:43 AM CDT Anaid Kruse MD LAB BLOOD ORDERABLES Final Result Performing Organization Address [facility]/ZIP Co de Phone Number [facility] [employer] [place] [place] [address] * (ABNORMAL) POCT glucose (09/07/2021 4:26 AM CDT) Glucose, POC 273(H) 70 - 199 mg/dL [facility] Blood 09/07/2021 4:26 AM CDT 09/07/2021 4:26 AM CDT us Notinfile Unknown LAB POCT ORDERABLES - DEVICE F inal Result [facility] [place] [address] * ECG 12-LEAD (09/07/2021 3:28 AM CDT) Narrative [facility] - 09/07/2021 3:28 AM CDT Azucena Leal [...] ECG ORDERABLES Final Result Performing Organization Address City/[facility] Co de Phone Number [facility] * (ABNORMAL) POCT glucose (09/07/2021 3:15 AM CDT) [facility] Glucose, POC 266(H) 70 - 199 mg/dL [facility] Blood 09/07/2021 3:15 AM CDT 09/07/2021 3:15 AM CDT Notinfile Unknown LAB POCT ORDERABLES - DEVICE F inal Result Performing Organization Address [facility] Co de Phone Number [facility] [place] [address] documented in this encounter Visit Diagnoses Diagnosis [...] Call MD for each episode of hypoglycemia. SORTER [employer]PHOLST[employer] PARTS STATES GLUTOSE-15 CONTAINS GLUCOSE 40% W/W (50% W/V), Indications: hypoglycemic disorderIndications:hypoglycemic disorder ybyrwoxzcpb-duigribbe-nsncxuww (TRELEGY ELLIPTA) 100-62.5-25 mcg inhaler 1 puff 1 puff, inhalation, Daily, First dose (after last modification) on [facility] 09/09/21 at 0900, Rinse mouth [...] 1044 (Given - Provider: Snow Alfonso RN) wizcdezegcb-dmwxytzsl-yltc nter (TRELEGY ELLIPTA) 100-62.5-25 mcg inhaler 1 puff (CANCELED) 1 puff, inhalation, Daily (supervisor correspondence section), First dose on Sat09/08/21 at 0800, Rinse mouth with water after use. Do not swallow., Indications: Bronchospasm Prevention with COPD 0901 (Given - Provider: Ramonita Chilel RN) hoonqjgedrd-ozlxcoaee-qiji nter (TRELEGY ELLIPTA) 100-62.5-25 mcg inhaler 1 puff 1 puff, inhalation, Daily, First dose (after last modification) on 09/09/21 at 0900, Rinse mouth with water [...] Sri Le RN - Reason: Patient/family refused) 214 (Given - Provider: Sri Le RN) insulin [...] Starks RN) 0822 (Given - Provider: Snow Alofnso RN) 0639 (Given - Provider: Sri Le, [...] Prophylaxis 0902 (Given - Provider: Ramonita Chilel RN)2023 (Given - Provider: Sri Le RN) 0821 (Given - Provider: Snow Alfonso RN)204 (Given [...] Sri Le RN)1211 (Given - Provider: Snow Alfonso RN)1611 [...] RN) 0822 (Given - Provider: Snow Alfonso RN)2041 (Given [...] 1 puff, inhalation, Every 4 hours PRN (supervisor correspondence section), wheezing, Starting on Sat09/07/21 at 2020 0924 (Given - Provider: Mala Aiken, METER CALIBRATOR) albuterol HFA (PROVENTIL HFA,VENTOLIN HFA,PROAIR HFA) 90 mcg/actuation inhaler 1 puff 1 puff, inhalation, Every 4 hours PRN, wheezing, Starting on Sat09/08/21 at 1045, RN TO ADMINISTER aluminum & magnesium rxprlcehz-inawbaipcgg-elrs enhydramine-lidocaine (MAGIC MOUTHWASH) suspension 1-1-1 15 mL, [...] 1608 (Given - Provider: Ramonita Chilel, RN) 0884 (Given - Provider: Snow Alfonso, RN) 0057 [...] Call MD for each episode of hypoglycemia. [employer] STATES GLUTOSE-15 CONTAINS GLUCOSE 40% W/W (50% [...] medication administrations, Starting on Angy 09/07/21 at 2019 0541 (New Bag - Provider: [...] phosphorus level 1.5-1.9 mg/dL, Starting on Angy /21/21 at 2024, Contact provider for phosphorus level [...] Call MD for each episode of hypoglycemia. SORTER [employer] STATES GLUTOSE-15 CONTAINS GLUCOSE 40% W/W (50% [...] sodium chloride 0.9% bolus 500 mL 1 sodium chloride 0.9% infusion 4 09/09/2021 09/07/2021 albuterol HFA (PROVENTIL HFA ,VENTOLIN HFA,PROAIR HFA) 90 mcg/actuation inhaler 1 puff 2 09/08/2021 09/07/2021 ijrnkakoqdi-cwgnptlyk-nqqiee er (TRELEGY ELLIPTA) 100-62.5-25 mcg inhaler 1 puff 2 09/08/2021 09/07/2021 nicotine (NICODERM CQ) 21 mg patch 24 hour 1 patch 1 09/08/2021 acetaminophen (TYLENOL) tablet 650 mg 2 acyclovir (ZOVIRAX) tablet 400 mg 1 albuterol 2.5 mg/0.5 mL nebu lizer solution 5 mg 1 09/07/2021 aluminum & magnesium hjlnbcbpf-pnoviczjfwo-cgulpbewitnuiib-lido aida (MAGIC MOUTHWASH) suspension 1-1-1 1 09/07/2021 [...] 09/07/2021 documented in this encounter Care Teams Program Development Specialist Relationship Specialty Start Date End Date Kirt Lindsay DO PCP - General Internal Medicine 02/02/21 Josué Del Valle MD PhD Medical Oncologist/Tafe Lecturer Medical Oncology 08/26/19 documented as of this encounter
--- OUTSIDE RECORDS SUMMARY | 2024-11-22 13:01 | XMS_ITS | Encounter Summary ---
Author Organization [facility] Address [address] [place] [address] Phone Care Team Providers Care Tension Worker Name Role Phone Josué Del Valle MD PhD Unavailable [phone] Kirt Lindsay DO Primary Care Provider [phone] Encounter Details Date Type Department Care Team (Late st Contact Info) Description 08/17/2021 Telephone [facility] Bone Marrow Transplant [address] [facility] Advanced Medicine 7th Floor, [place] [address] Justine Jones RN Social History [...] file 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
--- OUTSIDE RECORDS SUMMARY | 2024-11-22 13:01 | XMS_ITS | Encounter Summary ---
Author Organization [facility] Address [address] [facility] [address] [place] [address] Phone Care Team Providers Care Reservations Sales Agent Name Role Phone Josué Del Valle MD PhD Unavailable [phone] Kirt Lindsay DO Primary Care Provider [phone] Reason for Visit * Oncology (Routine) - Canceled Specialty Diagnoses / Procedures Referred By Contact Referred To Contact Endocrinology Diabetes & Metabolism Diagnoses Type 2 diabetes mellitus with hyperosmolarity without coma, with long-term current use of insulin (HCC) Osteopenia, unspecified location [address] MD Phone: tel:[phone] fax:[phone] [facility] [address] [place] [address] Phone: tel:[phone] fax:[phone] Referral ID Status Reason Start Date Expiration Date Visits Requested Visits Authorized [id number] Canceled Specialty Services Required 08/09/2021 02/05/2022 6 6 Encounter Details Date Type Department Care Team (Latest Contact Info) Description 08/11/2021 11:20 AM CDT Office Visit [facility] Oncology [address] [facility] [address] [place] [address] [place] [address] [address] Monte[address] MD [address] [facility] [address] [place] [address] Pure hypercholesterolemia (Primary Dx); Type 2 diabetes [...] file 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 voriCONAZOLE (VFEND) 200 mg tablet, Take 200 mg by mouth 2 (two) times a day , Disp: , Rfl: ??? Xarelto 20 mg tablet, TAKE 1 TABLET(20 MG) BY MOUTH DAILY (Patient taking differently: Take 20 mg by mouth director oracle database before breakfast ), Disp: 30 tablet, Rfl: [...] 021 documented in this encounter Care Teams Reservations Sales Agent Relationship Specialty Start Date End Date Kirt Lindsay DO PCP - General Internal Medicine 02/02/21 Josué Del Valle MD PhD Medical Oncologist/Manager Control Medical Oncology 08/26/19 documented as of this encounter
--- OUTSIDE RECORDS SUMMARY | 2024-11-22 13:01 | XMS_ITS | Encounter Summary ---
Author Organization [facility] Address [address] [place] [address] Phone Care Team Providers Care Scientist/Engineer Name Role Phone Josué Del Valle MD PhD Unavailable [phone] Kirt Lindsay DO Primary Care Provider [phone] Encounter Details Date Type Department Care Team (Late st Contact Info) Description 08/11/2021 Orders Only [facility] Oncology [address] [facility] Advanced Medicine [address]th [place] [address] [place] [address] [address] MD [address] [facility] [address] [place] [address] Osteopenia, unspecified location (Primary Dx) Social History [...] on file 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
--- OUTSIDE RECORDS SUMMARY | 2024-11-22 13:01 | XMS_ITS | Encounter Summary ---
Author Organization [facility] Address [address] [place] [address] Phone Care Team Providers Care Electrical Project Engineer Name Role Phone Josué Del Valle MD PhD Unavailable [phone] Kirt Lindsay DO Primary Care Provider [phone] Encounter Details Date Type Department Care Team (Late st Contact Info) Description 08/22/2021 Telephone [facility] Bone Marrow Transplant [address] [facility] Advanced Medicine 7th Floor, [place] [address] Mellisa Rubalcava RN Social History [...] on file 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
--- OUTSIDE RECORDS SUMMARY | 2024-11-22 13:01 | XMS_ITS | Encounter Summary ---
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 Gender Identity Not on file Sexual [...] in remission ([facility]) INHALE 1 TO 2 PUFFS BY MOUTH EVERY 4 HOURS NEEDED FOR WHEEZING 8.5 g 3 09/05/20 21 021 Alcohol Prep Pads pads, medicated 05/27/20 21 022 atorvastatin (LIPITOR) 40 mg tabletIndications:AML (acute myeloid leukemia) in remission ([facility]),Type 2 diabetes mellitus with hyperglycemia, with long-term current use of insulin ([facility]),Orqli-yrovck-ohwf disease ([facility]),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[facility]),Pure hypercholesterolemia Take 1 tablet (40 mg total) by mouth daily 30 tablet 6 01/15/20 20 024 blood glucose diagnostic stripIndications:Type 2 diabetes mellitus with hyperosmolarity without coma, with long-term current use of insulin ([facility]) Check blood sugar tid 100 each 4 [...] of insulin ([facility]) TAKE 1 CAPSULE BY MOUTH FOUR TIMES [...] mg tabletIndications:AML (acute myeloid leukemia) in remission (HCC),Nfvuu-rloxms-ggqr disease (HCC) TAKE 1 TABLET BY MOUTH EVERY DAY 90 tablet 06/29/20 21 021 mycophenolate mofetil (CELLCEPT) 500 mg tabletIndications:AML (acute myeloid leukemia) in remission (HCC),Iexeh-zrubdb-huyf disease (HCC) TAKE 2 TABLETS(1000 MG) BY [...] mcg inhalerIndications:AML (acute myeloid leukemia) in remission (HCC),Uotln-eszcnx-qcfu disease (HCC),H/O allogeneic bone marrow transplant (HCC) [...] FLUOROSCOPY PROCEDURES Final Result Performing Organization Address City/State/[facility] Co mi Phone Number [email or web address] documented in this encounter Visit Diagnoses Not on filedocumented in this encounter Care Teams Director Home Health Relationship Specialty Start Date End Date Kirt Lindsay DO PCP - General Internal Medicine 02/02/21 Josué Del Valle MD PhD Medical Oncologist/Fitter Type Bar And Segment Medical Oncology 08/26/19 documented as of this encounter
--- OUTSIDE RECORDS SUMMARY | 2024-11-22 13:01 | XMS_ITS | Encounter Summary ---
Author Organization [facility] Address [address] [place] [address] Phone Care Team Providers Care Conventions Assistant Name Role Phone Josué Del Valle MD PhD Unavailable [phone] Kirt Lindsay DO Primary Care Provider [phone] Reason for Visit * Oncology (Routine) - Canceled Specialty Diagnoses / Procedures Referred By Contac t Referred To Contact Lab Diagnoses AML (acute myeloid leukemia) in remission (HCC) Thknm-zjiurw-yuyj disease (HCC) Procedures ONCBCN ARM DRAW APPT LAB ONLY Josué Del Valle MD PhD Phone: tel: fax: [facility] [address] [facility] 7th [place] [address] [place] [address] Phone: tel: Referral ID Status Reason Start Date Expiration Date Visits Requested Visits Authorized [id number] Canceled Specialty Services Required 06/05/2021 12/02/2021 12 12 Encounter Details Date Type Department Care Team (Late st Contact Info) Description 08/11/2021 10:30 AM CDT Lab [facility] [address] [facility] 7th [place] [address] [place] [address] Type 2 diabetes mellitus with hyperosmolarity without coma, with long-term current use of insulin (CMS/HCC) ([facility]); Osteopenia, unspecified location Social History Tobacco Use [...] on file 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 Gender Identity Not on file Sexual Orientation Not on file documented as of this encounter Plan of Treatment Not on file documented as of this encounter Procedures Procedure Name Priority Date/Time Associated Diagnosis Comments HEMOGLOBIN A1C Routine 08/11/2021 10:57 AM CDT Type 2 diabetes mellitus with hyperosmolarity without coma, with long-term current use of insulin (CMS/[facility]) ([facility]) Osteopenia, unspecified location EGFR Routine 08/11/2021 10:51 AM CDT Type 2 diabetes mellitus with hyperosmolarity without coma, with long-term current use of insulin (CMS/HCC) ([facility]) Osteopenia, unspecified location VITAMIN D 25 HYDROXY Routine 08/11/2021 10:51 AM CDT Type 2 diabetes mellitus with hyperosmolarity without coma, with long-term current use of insulin (CMS/HCC) ([facility]) Osteopenia, unspecified location LIPID PANEL Routine 08/11/2021 10:51 AM CDT Type 2 diabetes mellitus with hyperosmolarity without coma, with long-term current use of insulin (CMS/HCC) ([facility]) Osteopenia, unspecified location COMPREHENSIVE METABOLIC PANEL Routine 08/11/2021 10:51 AM CDT Type 2 diabetes mellitus with hyperosmolarity without coma, with long-term current use of insulin (CMS/HCC) (HCC) Osteopenia, unspecified location documented in this encounter Results * (ABNORMAL) Hemoglobin A1c (08/11/2021 10:57 AM CDT) [facility] Hgb A1C 8.1(H) 4.0 - 5.6 % [facility] Estimated Average Glucose 186 mg/dL [facility] Comment: The ADA recommends reporting an [...] MD LAB BLOOD ORDERABLES Final Resul t [facility] Department [place] [address] * eGFR (08/11/2021 10:51 AM CDT) [facility] eGFR >90 90 - 130 mL/min/1.7 3 m2 [facility] Comment: Interpretive Data Reference Interval Normal [...] was last reviewed 2020 Testing performed by: [facility], [address] [place] [phone] Blood 08/11/2021 10:5 1 AM CDT 08/11/2021 10:54 AM CDT us Eneida Gibson MD LAB BLOOD ORDERABLES Final Resul t [facility] Department [place] [address] * (ABNORMAL) Comprehensive metabolic panel (08/11/2021 10:51 AM CDT) Sodium 143 135 - 145 mmol/L [facility] Comment:Testing performed by : [facility], [address] [place] [phone] Potassium, pl 4.3 3.3 - 4.9 mmol/L [facility] Comment:Testing performed by : [facility], [address] [place] [phone] Chloride 105 97 - 110 mmol/L [facility] Comment:Testing performed by : [facility], [address] [place] [phone] CO2 33(H) 22 - 32 mmol/L [facility] Comment:Testing performed by : [address] [phone] Anion gap 5 2 - 15 mmol/L [facility] Comment:Testing performed by : [facility], [address] [place] [phone] BUN 12 8 - 25 mg/dL [facility] Comment:Testing performed by : [facility], [address] [place] [phone] Creatinine 0.82 0.80 - 1.30 mg/dL [facility] Comment:Testing performed by : [facility], [address] [place] [phone] Glucose 222(H) 70 - 199 mg/dL [facility] [...] was last revised 2017. Testing performed by: [place] [id number] Calcium 9.6 8.5 - 10.3 mg/dL [facility] Comment:Testing performed by : [place] [id number] Bilirubin, total 0.3 0.1 - 1.2 mg/dL [facility] Comment:Testing performed by : [address] [phone] Protein, pl 6.8 6.5 - 8.5 g/dL [facility] Comment:Testing performed by : [place] [id number] Albumin 4.0 3.5 - 5.0 g/dL [facility] Comment:Testing performed by : [place] [id number] Alk phos 142(H) 40 - 130 Units/L [facility] Comment:Testing performed by : [place] [id number] ALT 17 7 - 55 Units/L [facility] Comment:Testing performed by : [place] [id number] AST 25 10 - 50 Units/L [facility] Comment:Testing performed by : [place] [id number] Blood 08/11/2021 10:5 1 AM CDT 08/11/2021 10:54 AM CDT us Eneida Gibson MD LAB BLOOD ORDERABLES Final Resul t Performing Organization Address [facility] de Phone Number [facility] [place] [address] * (ABNORMAL) Vitamin D 25 hydroxy (08/11/2021 10:51 AM CDT) Vitamin D 25-OH 19(L) 30 - 80 ng/mL [facility] Blood 08/11/2021 10:5 1 AM CDT 08/11/2021 11:09 AM CDT us Eneida Gibson MD LAB BLOOD ORDERABLES Final Resul t Performing Organization Address [facility] de Phone Number [facility] [place] [address] * Lipid panel (08/11/2021 10:51 AM CDT) Cholesterol 196 30 - 199 mg/dL [facility] Comment: Interpretive Data Ages < or [...] on 2018. Triglycerides 88 <=149 mg/dL [facility] Comment: Interpretive Data Ages < [...] revised on 2018. HDL 52 >=40 mg/dL [facility] Comment: Interpretive Data Ages < or [...] 2018. LDL, calculated 126 <=129 mg/dL [facility] Comment: Interpretive Data Ages < [...] revised on 2018. Non-HDL Cholesterol 144 mg/dL [facility] Comment: Interpretive Data Ages < [...] last revised on 2018. Chol/HDL ratio 4 [facility] Blood 08/11/2021 10:5 1 AM CDT 08/11/2021 11:09 AM CDT us Eneida Gibson MD LAB BLOOD ORDERABLES Final Resul t [facility] Department [place] [address] documented in this encounter Visit Diagnoses Diagnosis Type 2 diabetes mellitus with hyperosmolarity without coma, with long-term current use of insulin (HCC) Osteopenia, unspecified location documented in this encounter Orders Appointment Requests Count Last Ordered Date Fi rst Ordered Date ONCBCN LAB APPOINTMENT 1 08/11/2021 documented in this encounter Care Teams Conventions Assistant Relationship Specialty Start Date End Date Kirt Lindsay DO PCP - General Internal Medicine 02/02/21 Josué Del Valle MD PhD Medical Oncologist/Claims Service Adjustor Medical Oncology 08/26/19 documented as of this encounter
--- OUTSIDE RECORDS SUMMARY | 2024-11-22 13:02 | XMS_ITS | Encounter Summary ---
Author Organization [facility] Address [address] [facility] [address] [place] [address] Phone Care Team Providers Care Special Machine Stitcher Name Role Phone Josué Del Valle MD PhD Unavailable [phone] Kirt Lindsay DO Primary Care Provider [phone] Reason for Visit * Reason Comments Osteopenia * Diagnostic Imaging (Routine) - Closed Specialty Diagnoses / Procedures Referred By Contac t Referred To Contact Diagnoses Type 2 diabetes mellitus with hyperosmolarity without coma, with long-term current use of insulin (HCC) Osteopenia, unspecified location Procedures Dexa Axial Skeleton Bone Density 1 or 2 Site Eneida Gibson MD Phone: tel: [facility] Referral ID Status Reason Start Date Expiration Date Visits Re quested Visits Authorized [id number] Closed 02/03/2021 03/05/2022 25 25 Encounter Details Date Type Department Care Team (Latest Contact Info) Description 08/11/2021 10:10 AM CDT Clinical Support [facility] [address] [facility] 5th [place] [address] [place] [address] Type 2 diabetes mellitus with hyperosmolarity without coma, with long-term current use of insulin ([facility]) ([facility]); Osteopenia, unspecified location; Osteopenia of left hip; assisted (current) use of 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 Social History Tobacco [...] file 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 ?? Based on machine cross-calibration [...] by the International Society of Clinical Densitometry. [id number] Eneida Gibson MD IMG DXA PROCEDURES Final Result documented in this encounter Visit Diagnoses Diagnosis Type 2 diabetes mellitus with hyperosmolarity without coma, with long-term current use of insulin (HCC) Osteopenia, unspecified location manager long term care (current) use of 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 Long-term (current) use of 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 documented in this encounter Care Teams Special Machine Stitcher Relationship Specialty Start Date End Date Kirt Lindsay DO PCP - General Internal Medicine 02/02/21 Josué Del Valle MD PhD Medical Oncologist/Talent Partner Medical Oncology 08/26/19 documented as of this encounter
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
--- OUTSIDE RECORDS SUMMARY | 2024-11-22 13:02 | XMS_ITS | Encounter Summary ---
Author Organization [facility] Address [address] [facility] [address] [place] [address] Phone Care Team Providers Care Circular Knitter Name Role Phone Josué Del Valle MD PhD Unavailable [phone] Kirt Lindsay DO Primary Care Provider [phone] Reason for Visit * Consultation (Routine) - Closed Specialty Diagnoses / Procedures Referred By Controberta anderson Referred To Contact Ophthalmology Diagnoses Combined form of senile cataract of both eyes Kirt Lindsay DO Phone: tel: fax: Ravi Hughes MD [address] [place] [address] Phone: tel: fax: Referral ID Status Reason Start Date Expiration Date V isits Requested Visits Authorized [id number] Closed Specialty Services Required 05/02/2021 10/29/2021 6 6 Encounter Details Date Type Department Care Team (Late st Contact Info) Description 06/14/2021 10:45 AM CDT Office Visit [facility] Ophthalmology [facility] 6th [place] [address] Ravi Hughes MD [address] [facility] [address] [place] [address] s/p CE/PCIOL OD 05/12/21 (Primary Dx); Hhhjz-iwvsfe-ufme disease (HCC) Social History Tobacco Use Types Packs/Day Years Used Date Smoking Tobacco: Every Day Cigarettes 0.3 39 Started: 1984 Smokeless Tobacco: Never Comments:pt states tried to quit Sex and Gender Information Value Date Recorded Sex Assigned at Not on file 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 Gender Identity Not on file Sexual [...] extraction (CE)/IOL left eye in near future Igutp-zwyyfy-bfqs disease (CMS/HCC) Assessment & Plan: Hx GVHD [...] MD - 06/14/2021 11:36 AM CDTAssociated Problem(s): Qzpnp-ykdujp-vnqy disease (HCC) 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
--- OUTSIDE RECORDS SUMMARY | 2024-11-22 13:02 | XMS_ITS | Encounter Summary ---
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) Ebnxa-nzbwxp-onli disease (HCC) Procedures ONCBCN ARM DRAW APPT LAB ONLY Josué Del Valle MD PhD Phone: tel: fax: [facility] Oncology [address] [facility] 7th [place] [address] [place] [address] Phone: tel: Referral ID Status Reason Start Date Expiration Date Visits Requested Visits Authorized [id number] Canceled Specialty Services Required 06/05/2021 12/02/2021 12 12 Encounter Details Date Type Department Care Team (Late st Contact Info) Description 06/08/2021 9:00 AM CDT Lab [facility] Oncology [address] [facility] 7th [place] [address] [place] [address] 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); Djrbp-qupfel-axos disease (HCC) Social History Tobacco Use Types Packs/Day Years Used Date Smoking Tobacco: Every Day Cigarettes 0.3 39 Started: 1984 Smokeless Tobacco: Never Comments:pt states tried to quit Sex and Gender Information Value Date Recorded Sex Assigned at Not on file 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 Gender Identity Not on file Sexual Orientation Not on file documented as of this encounter Plan of Treatment Not on file documented as of this encounter Procedures Procedure Name Priority Date/Time Associated Diagnosis Comments CYTOMEGALOVIRUS (CMV) DNA, QUANT GEN LAB Routine 06/08/2021 10:15 AM CDT 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) Joutu-ypyrgm-tywj disease (HCC) TACROLIMUS LEVEL, RANDOM Routine 06/08/2021 9:42 AM CDT 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) Feira-fftapt-phry disease (HCC) DIFFERENTIAL AUTO Routine 06/08/2021 9:3 7 AM CDT 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) Emwpe-fjbwcn-csxd disease (HCC) CBC WITH AUTO DIFFERENTIAL Routine 06/08/2021 9:37 AM CDT 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) Dwlns-vqpacs-mpux disease (HCC) URIC ACID Routine 06/08/2021 9:37 AM CDT 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) Onwck-pudwie-vhbd disease (HCC) MAGNESIUM Routine 06/08/2021 9:37 AM CDT 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) Kseda-alqumi-qlgw disease (HCC) LACTATE DEHYDROGENASE Routine 06/08/2021 9:37 AM CDT 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) Ubwsk-xlcwmo-pbjm disease (HCC) COMPREHENSIVE METABOLIC PANEL Routine 06/08/2021 9:37 AM CDT 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) Qtwfe-bvpxys-zbvz disease (HCC) documented in this encounter Results * Cytomegalovirus (CMV) DNA PCR, quantitative Blood (06/08/2021 10:15 AM CDT) [facility] CMV DNA Not Detected ZULEMA DENT Comment: Interpretive Data: The quantifiable range of this assay is 137 IUnits/mL to 9,100,000 IUnits/mL (2.14 log IUnits/mL to 6.96 log IUnits/mL). Testing was performed by the [facility] AmpliPrep/MICHEL TaqMan CMV Test ([employer] Testing performed at [facility] Current interpretive data was last revised on 17. Blood specimen (specimen) 06/08/2021 10:15 AM CDT 06/08/2021 10:15 AM CDT Narcisa Kilgore NP LAB MICROBIOLOGY - GENERA L ORDERABLES Final Result ZULEMA DENT [facility] Department [place] [address] * Tacrolimus level random (06/08/2021 9:42 AM CDT) [facility] Tacrolimus random <1.0 ng/mL ZULEMA DENT Comment: Undetectable. ??Please verify that the correct immunosuppressant test was requested. Interpretive Data Testing performed by liquid chromatography-tandem mass spectrometry. ??Therapeutic concentrations vary depending on type of transplanted organ and time elapsed since transplant. ??Typical trough concentrations range from 5-15 ng/mL. ??This test was developed and its performance characteristics determined by the [facility] consistent with CLIA requirements. ??This test has not been cleared or approved by the US Food and Drug administration. ??Current interpretive data last reviewed 2020. Blood specimen (specimen) 06/08/2021 9:42 AM CDT 06/08/2021 9:57 AM CDT us Narcisa Kilgore MANGLE FEEDER LAB BLOOD ORDERABLES Pilar armas Result [facility] [place] [address] * Differential, auto (06/08/2021 9:37 AM CDT) Neutrophil abs 4.2 1.8 - 6.6 K/cumm CERNER BJ Comment:Testing performed by : [facility], [address] [place] [phone] Lymphocyte abs 3.0 1.2 - 3.3 K/cumm CERNER BJ Comment:Testing performed by : [facility], [address] [place] [phone] Monocyte abs 0.6 0.2 - 1.2 K/cumm CERNER BJ Comment:Testing performed by : [facility], [address] [place] [phone] Eosinophil abs 0.4 0.0 - 0.5 K/cumm CERNER BJ Comment:Testing performed by : [facility], [address] [place] [phone] Basophil abs 0.1 0.0 - 0.2 K/cumm CERNER BJ Comment:Testing performed by : [address] [phone] Neutrophil pct 50.5 % CERNER BJ Comment: Interpretive Data Percent cell count reference ranges are not reported, since discordance with absolute values may lead to misinterpretation of CBC data. Current Interpretive Data was last revised on 2018. Testing performed by: [address] [phone] Lymphocyte pct 36.2 % CERNER BJ Comment: Interpretive Data Percent cell count reference ranges are not reported, since discordance with absolute values may lead to misinterpretation of CBC data. Current Interpretive Data was last revised on 2018. Testing performed by: [facility], [address] [place] [phone] Monocyte pct 7.6 % ZULEMA DENT Comment:Testing performed by : [facility], [address] [place] [phone] Eosinophil pct 4.4 % CERAVTAR BJ Comment:Testing performed by : [facility], [address] [place] [phone] Basophil pct 1.3 % ZULEMA BJ Comment:Testing performed by : [facility], [address] [place] [phone] Blood specimen (specimen) 06/08/2021 9:37 AM CDT 06/08/2021 9:39 AM CDT Narcisa Kilgore MANGLE FEEDER LAB BLOOD ORDERABLES Pilar armas Result Performing Organization Address City/State/[facility] Co de Phone Number ZULEMA [facility] Department [place] [address] * (ABNORMAL) CBC with auto differential (06/08/2021 9:37 AM CDT) WBC 8.3 3.8 - 9.8 K/cumm ZULEMA DENT Comment:Testing performed by : [facility], [address] [place] [phone] Hgb 13.6(L) 13.8 - 17.2 g/dL ZULEMA DENT Comment:Testing performed by : [facility], [address] [place] [phone] Hct 40.0(L) 40.7 - 50.3 % ZULEMA DENT Comment:Testing performed by : [facility], [address] [place] [phone] Plt 321 140 - 440 K/cumm ZULEMA DENT Comment:Testing performed by : [address] [phone] MPV 7.7 6.8 - 10.4 fL ZULEMA DENT Comment:Testing performed by : [address] [phone] RBC 3.93(L) 4.50 - 5.70 M/cumm ZULEMA DENT Comment:Testing performed by : [facility], [address] [place] [phone] MCV 101.8(H) 80.0 - 97.6 fL ZULEMA DENT Comment:Testing performed by : [facility], [address] [place] [phone] MCH 34.7(H) 26.7 - 33.7 pg ZULEMA DENT Comment:Testing performed by : [facility], [address] [place] [phone] MCHC 34.1 32.7 - 35.5 g/dL ZULEMA DENT Comment:Testing performed by : [facility], [address] [place] [phone] RDW CV 13.8 11.8 - 14.6 % ZULEMA DENT Comment:Testing performed by : [facility], [address] [place] [phone] NRBC abs 0.00 0.00 - 0.01 K/cumm ZULEMA DENT Comment:Testing performed by : [facility], [address] [place] [phone] Blood specimen (specimen) 06/08/2021 9:37 AM CDT 06/08/2021 9:39 AM CDT us Narcisa Kilgore MANGLE FEEDER LAB BLOOD ORDERABLES Pilar armas Result ZULEMA DENT [facility] Department [place] [address] * (ABNORMAL) Comprehensive metabolic panel (06/08/2021 9:37 AM CDT) Sodium 138 135 - 145 mmol/L ZULEMA DENT Comment:Testing performed by : [facility], [address] [place] [phone] Potassium, pl 4.6 3.3 - 4.9 mmol/L ZULEMA DENT Comment:Testing performed by : [address] [phone] Chloride 104 97 - 110 mmol/L ZULEMA SOMMERS Comment:Testing performed by : [facility], [address] [place] [phone] CO2 29 22 - 32 mmol/L CERNER BJ Comment:Testing performed by : [facility], [address] [place] [phone] Anion gap 5 2 - 15 mmol/L CERNER BJ Comment:Testing performed by : [facility], [address] [place] [phone] BUN 14 8 - 25 mg/dL CERNER BJ Comment:Testing performed by : [facility], [address] [place] [phone] Creatinine 0.85 0.80 - 1.30 mg/dL CERNER BJ Comment:Testing performed by : [facility], [address] [place] [phone] Glucose 204(H) 70 - 199 mg/dL CERNER [...] last revised 2017. Testing performed by: [facility], [address] [place] [phone] Calcium 9.7 8.5 - 10.3 mg/dL CERNER BJ Comment:Testing performed by : [facility], [address] [place] [phone] Bilirubin, total 0.5 0.1 - 1.2 mg/dL CERNER BJ Comment:Testing performed by : [facility], [address] [place] [phone] Protein, pl 7.6 6.5 - 8.5 g/dL CERNER BJ Comment:Testing performed by : [facility], [address] [place] [phone] Albumin 4.1 3.5 - 5.0 g/dL [facility] Comment:Testing performed by : [facility], [address] [place] [phone] Alk phos 195(H) 40 - 130 Units/L [facility]ULEMA [facility] Comment:Testing performed by : [facility], [address] [place] [phone] ALT 16 7 - 55 Units/L [facility]MA [facility] Comment:Testing performed by : [facility], [address] [place] [phone] AST 15 10 - 50 Units/L [facility] Comment:Testing performed by : [facility], [address] [place] [phone] Blood specimen (specimen) 06/08/2021 9:37 AM CDT 06/08/2021 9:39 AM CDT Narcisa Kilgore MANGLE FEEDER LAB BLOOD ORDERABLES Pilar l Result Performing Organization Address City/[facility]/ZIP Co de Phone Number [facility] [place] [address] * Lactate dehydrogenase (LD) (06/08/2021 9:37 AM CDT) Pathologist [facility] Lactate dehydrogenase (LDH) 142 100 - 250 Units/L [facility] Comment:Testing performed by : [facility], [address] [place] [phone] Blood specimen (specimen) 06/08/2021 9:37 AM CDT 06/08/2021 9:39 AM CDT Narcisa Kilgore MANGLE FEEDER LAB BLOOD ORDERABLES Pilar l Result Performing Organization Address City/[facility]/[place] [address] * Magnesium (06/08/2021 9:37 AM CDT) Magnesium 1.5 1.4 - 2.5 mg/dL ZULEMA [facility] Comment:Testing performed by : [facility], [address] [place] [phone] Blood specimen (specimen) 06/08/2021 9:37 AM CDT 06/08/2021 9:39 AM CDT Narcisa Kilgore MANGLE FEEDER LAB BLOOD ORDERABLES Pilar l Result Performing Organization Address [facility] Co de Phone Number [facility] Department [place] [address] * Uric acid (06/08/2021 9:37 AM CDT) Uric acid 4.9 3.0 - 8.0 mg/dL [facility] Comment:Testing performed by : [facility], [address] [place] [phone] Blood specimen (specimen) 06/08/2021 9:37 AM CDT 06/08/2021 9:39 AM CDT Narcisa Kilgore MANGLE FEEDER LAB BLOOD ORDERABLES Pilar l Result Performing Organization Address 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
--- OUTSIDE RECORDS SUMMARY | 2024-11-22 13:02 | XMS_ITS | Encounter Summary ---
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) [facility] Scheduling [address] [place] [address] Phone: tel: Josué Del Valle MD PhD [address] DIV IM BONE MARROW TRANSPLANT, [address] [place] [address] Phone: tel: fax: Referral ID Status Reason Start Date Expiration Date V isits Requested Visits Authorized [id number] Closed Specialty Services Required 06/05/2021 11/17/2023 99 99 Encounter Details Date Type Department Care Team (Late st Contact Info) Description 06/08/2021 9:50 AM CDT Office Visit [facility] Bone Marrow Transplant [address] [facility] 7th Floor, [place] [address] Josué Del Valle MD PhD [address] IM BONE MARROW TRANSPLANT, [address] [place] [address] 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) (Primary Dx) Social History Tobacco Use Types Packs/Day Years Used Date Smoking Tobacco: Every Day Cigarettes 0.3 39 Started: 1985 Smokeless Tobacco: Never Tobacco Cessation:Ready to Q uit: Yes; Counseling Given: Yes Comments:pt states tried to quit Sex and Gender Information Value Date Recorded Sex Assigned at Not on file 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 2. Decitabine maintenance on the [facility] [address] protocol. 3. 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 TRANSPLANT HISTORY: Status post an allogeneic transplant with busulfan and Cytoxan on the [facility] allogeneic study with hissister, 08/27 match; with [...] sib 12 years ago. 3. Extensive chronic mwydr-clhbbq-rzlp disease. 4. Bilateral cataracts, with his right being recently replaced. He is overall doing remarkably well at the present time. ELECTRONICALLY SIGNED - 06/09/2021 12:28 PM Josué Del Valle M.D., Ph.D. Chief, Division of Oncology/utility specialist Section of BMT & Leukemia CHRISTOPHER/ps documented in this encounter Nursing Notes * Mellisa Rubalcava, BECKI - 06/08/2021 9:50 AM CDT 06/08/21 AML Treatment hx: 1. Induction with 7+3 and HiDAC consolidation x3. 2. Decitabine maintenance on the [facility] [address] protocol. 3. 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
--- OUTSIDE RECORDS SUMMARY | 2024-11-22 13:02 | XMS_ITS | Encounter Summary ---
Author Organization [facility] Address [address] [place] [address] Phone Care Team Providers Care Network Security Analyst Name Role Phone Josué Del Valle MD PhD Unavailable [phone] Kirt Lindsay DO Primary Care Provider [phone] Tay Charlton MD Unavailable [phone] Halie Khan MD Unavailable [phone] Ant Starks MD Unavailable [phone] Cal Carranza DO Unavailable [phone] Halie Khan MD Unavailable [phone] Wilfred Kinsey MD Unavailable Encounter Details Date Type Department Care Team (Late st Contact Info) Description 05/18/2021 Telephone [facility] Bone Marrow Transplant [address] [facility] Medicine 7th Floor, [place] [address] Melody Bolanos V. 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 Lissy Johnson RN +AFB stain 06/17/2024 06/17/2024 06/18/2024 10:45 AM CDT C. 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 07/23/2024 07/24/2024 07/24/2024 4:49 AM CDT documented as of this encounter Care Teams Network Security Analyst Relationship Specialty Start Date End Date Kirt Lindsay DO PCP - General Internal Medicine 02/02/21 Josué Del Valle MD PhD Medical Oncologist/Game Designer/Creative Director Medical Oncology 08/26/19 Tay Charlton MD Consulting Physician Gastroenterology 12/03/21 06/11/23 Halie Khan MD [address] [facility] [address] [place] [address] Consulting Physician Pulmonary Disease 12/12/21 3 Ant Starks MD [address] [address] Consulting Physician Transplant Hepatology 01/12/22 Cal Carranza DO [address] [facility] [address] [place] [address] Jockey Valet Internal Medicine 06/12/23 Halie Khan MD [address] [address] Edging Catcher Critical Care Med 06/12/23 Wilfred Kinsey MD [address] [address] Consulting Physician Gastroenterology 03/02/24 documented as of this encounter
--- OUTSIDE RECORDS SUMMARY | 2024-11-22 13:02 | XMS_ITS | Encounter Summary ---
Author Organization [facility] Address [address] [facility] [address] [place] [address] Phone Care Team Providers Care Metal Window Frame Maker Name Role Phone Josué Del Valle MD PhD Unavailable Kirt Lindsay DO Primary Care Provider [phone] Reason for Visit * Consultation (Routine) - Canceled Specialty Diagnoses / Procedures Referred By Ana M anderson Referred To Contact Ophthalmology Diagnoses Combined form of senile cataract of both eyes Kitr Lindsay DO Phone: tel: fax: Ravi Hughes MD [address] [place] [address] Phone: tel: fax: Referral ID Status Reason Start Date Expiration Date Visits Requested Visits Authorized [id number] Canceled Specialty Services Required 05/02/2021 10/29/2021 6 6 Encounter Details Date Type Department Care Team (Late st Contact Info) Description 05/13/2021 8:00 AM CDT Office Visit [facility] Ophthalmology [facility] 6th [place] [address] Ravi Hughes MD [address] [facility] [address] [place] [address] s/p CE/PCIOL OD 05/12/21 (Primary Dx); Ppoop-mcgcot-oqyi disease (CMS/HCC) Social History Tobacco Use Types Packs/Day Years Used Date Smoking Tobacco: Every Day Cigarettes 0.3 39 Started: 1984 Smokeless Tobacco: Never Sex and Gender Information Value Date Recorded Sex Assigned at Not on file 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
--- OUTSIDE RECORDS SUMMARY | 2024-11-22 13:02 | XMS_ITS | Encounter Summary ---
Author Organization [facility] Address [address] [place] [address] Phone Care Team Providers Care Heavy Duty Custodian Name Role Phone Josué Del Valle MD PhD Unavailable [phone] Kirt Lindsay DO Primary Care Provider [phone] Reason for Visit * Reason Onset Date Comments Med Refill 06/19/2021 Encounter Details Date Type Department Care Team (Late st Contact Info) Description 06/19/2021 Telephone [facility] Ophthalmology [address] [place] [address] Ravi Hughes MD [address] [address] Med Refill Social History Tobacco Use Types Packs/Day Years Used Date Smoking Tobacco: Every Day Cigarettes 0.3 39 Started: 1985 Smokeless Tobacco: Never Comments:pt states tried to quit Sex and Gender Information Value Date Recorded Sex Assigned at Not on file Legal Sex Male 10:48 AM ANESTHESIOLOGY 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 Pt call back [phone] documented in this encounter Plan of Treatment Not on file documented as of this encounter Visit Diagnoses Not on filedocumented in this encounter 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 Care Teams Heavy Duty Custodian Relationship Specialty Start Date End Date Kirt Lindsay DO PCP - General Internal Medicine 02/02/21 Josué Del Valle MD PhD Medical Oncologist/Deicer Element Winder Machine Medical Oncology 08/26/19 documented as of this encounter
--- OUTSIDE RECORDS SUMMARY | 2024-11-22 13:02 | XMS_ITS | Encounter Summary ---
Author Organization [facility] Address [address] [facility] [address] [place] [address] Phone Care Team Providers Care Macaroni Press Operator Name Role Phone Josué Del Valle MD PhD Unavailable [phone] Kirt Lindsay DO Primary Care Provider [phone] Reason for Visit * Reason Comments Post-op - Cataract * Consultation (Routine) - Closed Specialty Diagnoses / Procedures Referred By Ana M anderson Referred To Contact Ophthalmology Diagnoses Combined form of senile cataract of both eyes Kirt Lindsay DO Phone: tel: fax: Ravi Hughes MD [address] [place] [address] Phone: tel: fax: Referral ID Status Reason Start Date Expiration Date V isits Requested Visits Authorized [id number] Closed Specialty Services Required 05/02/2021 10/29/2021 6 6 Encounter Details Date Type Department Care Team (Late st Contact Info) Description 08/02/2021 8:00 AM CDT Office Visit [facility] Ophthal[facility] 6th [place] [address] Ravi Hughes MD [address] [facility] [address] [place], [place] [id number] Pseudophakia, left eye (Primary Dx); Lijph-xgnclr-vchc disease (HCC); s/p CE/PCIOL OD 05/12/21 Social [...] on file Legal Sex Male 10:48 AM HUNTER Gender Identity Not on file Sexual Orientation [...] eyewear during day. - RTC 1 week Rckme-zkjssv-rsrn disease (HCC) s/p CE/PCIOL OD 05/12/21 Assessment [...] eye- Primary Lens replaced by other means Uesjp-sqhdai-zjpf disease (HCC) s/p CE/PCIOL OD 05/12/21 documented [...] josé ctive Lens PCIOL PCIOL Care Teams Macaroni Press Operator Relationship Specialty Start Date End Date Kirt Lindsay DO PCP - General Internal Medicine 02/02/21 Josué Del Valle MD PhD Medical Oncologist/Small Battery Plate Assembler Medical Oncology 08/26/19 documented as of this encounter
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
--- OUTSIDE RECORDS SUMMARY | 2024-11-22 13:02 | XMS_ITS | Encounter Summary ---
Author Organization [facility] Address [address] [place] [address] Phone Care Team Providers Care Attendant Sales Name Role Phone Josué Del Valle MD PhD Unavailable [phone] Kirt Lindsay DO Primary Care Provider [phone] Encounter Details Date Type Department Care Team (Late st Contact Info) Description 05/24/2021 Orders Only [facility] Bone Marrow Transplant [address] 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
--- OUTSIDE RECORDS SUMMARY | 2024-11-22 13:02 | XMS_ITS | Encounter Summary ---
Author Organization [facility] Address [address] [place] [address] Phone Care Team Providers Care Therapist Asst Name Role Phone Josué Del Valle MD PhD Unavailable [phone] Kirt Lindsay DO Primary Care Provider [phone] Encounter Details Date Type Department Care Team (Late st Contact Info) Description 07/28/2021 Telephone [facility] Ophthalmology [address] [facility] 6th [place] [address] Ravi Hughes MD [address] [place] [address] 6 [place] [address] Social History Tobacco Use Types [...] on file 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
--- OUTSIDE RECORDS SUMMARY | 2024-11-22 13:02 | XMS_ITS | Encounter Summary ---
Author Organization [facility] Address [address] [place] [address] Phone Care Team Providers Care It Systems Manager Name Role Phone Josué Del Valle MD PhD Unavailable [phone] Kirt Lindsay DO Primary Care Provider [phone] Encounter Details Date Type Department Care Team (Late st Contact Info) Description 08/10/2021 Orders Only [facility] Oncology [address] [facility] 7th [place] [address] [place] [address] Ave Montejo MD [address] [facility] [address] [place] [address] Type 2 diabetes mellitus with hyperosmolarity without [...] file 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
--- OUTSIDE RECORDS SUMMARY | 2024-11-22 13:02 | XMS_ITS | Encounter Summary ---
Author Organization [facility] Address [address] [facility] [address] [place] [address] Phone Care Team Providers Care Brush Cutter Name Role Phone Josué Del Valle MD PhD Unavailable [phone] Kirt Lindsay DO Primary Care Provider [phone] Reason for Visit * Reason Comments Post-op Follow-up Encounter Details Date Type Department Care Team (Late st Contact Info) Description 08/09/2021 10:15 AM CDT Office Visit [facility] Ophthalmology [address] 

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
--- OUTSIDE RECORDS SUMMARY | 2024-11-22 13:02 | XMS_ITS | Encounter Summary ---
Author Organization [facility] Address [address] [facility] [address] [place] [address] Phone Care Team Providers Care Circular Head Saw Operator Name Role Phone Josué Del Valle MD PhD Unavailable [phone] Kirt Lindsay DO Primary Care Provider [phone] Reason for Visit * Reason Comments Post-op - Cataract * Consultation (Routine) - Closed Specialty Diagnoses / Procedures Referred By Ana M anderson Referred To Contact Ophthalmology Diagnoses Combined form of senile cataract of both eyes Kirt Lindsay DO Phone: tel: fax: Ravi Hughes MD [address] [place] [address] Phone: tel: fax: Referral ID Status Reason Start Date Expiration Date V isits Requested Visits Authorized [id number] Closed Specialty Services Required 05/02/2021 10/29/2021 6 6 Encounter Details Date Type Department Care Team (Late st Contact Info) Description 05/17/2021 1:15 PM CDT Office Visit [facility] Op[facility] Health 6th [place] [address] Ravi Hughes MD [address] [facility] [address] [place], [place] [id number] s/p CE/PCIOL OD 05/12/21 (Primary Dx); Combined form of senile cataract of both eyes Social History Tobacco Use Types Packs/Day Years Used Date Smoking Tobacco: Every Day Cigarettes 0.3 39 Started: 1984 Smokeless Tobacco: Never Sex and Gender Information Value Date Recorded Sex Assigned at Not on file 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
--- OUTSIDE RECORDS SUMMARY | 2024-11-22 13:03 | XMS_ITS | Encounter Summary ---
Author Organization [facility] Address [address] [place] [address] Phone Care Team Providers Care Rear Load Truck Driver Name Role Phone Josué Del Valle MD PhD Unavailable [phone] Halie Khan MD Primary Care Provider [phone] Encounter Details Date Type Department Care Team (Late st Contact Info) Description 12/13/2020 Orders Only [facility] Oncology [address] [facility] 7th [place] [address] [place] [address] Eneida Gibson MD [address] [place] [address] Type 2 diabetes mellitus with hyperosmolarity without coma, with long-term current use of insulin ([facility]) (Primary Dx) Social History Tobacco Use Types Packs/Day Years Used Date Smoking Tobacco: Every Day Smokeless Tobacco: Never Comments:Pt not interested i n smoking cessation program Sex and Gender Information Value Date Recorded Sex Assigned at Not on file 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
--- OUTSIDE RECORDS SUMMARY | 2024-11-22 13:03 | XMS_ITS | Encounter Summary ---
Author Organization [facility] Address [address] [place] [address] Phone Care Team Providers Care Harvesting Manager Name Role Phone Josué Del Valle MD PhD Unavailable Halie Khan MD Primary Care Provider [phone] Encounter Details Date Type Department Care Team (Late st Contact Info) Description 11/23/2020 Telephone [facility] Bone Marrow Transplant [address] [facility] Medicine 7th Floor, [place] [address] Kari Mcbride NP [address] [place] [address] Social History Tobacco Use Types Packs/Day Years Used Date Smoking Tobacco: Every Day Smokeless Tobacco: Never Comments:Pt not interested i n smoking cessation program Sex and Gender Information Value Date Recorded Sex Assigned at Not on file Legal 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 Left voice message stating new script for ergocalciferol sent to local [facility] and to remain on all other medications. Also stated we were scheduling him with ROV with Cameron Kilgore 02-03 with an attempt to obtain consult with Dr. Gibson same day. Stated we would mail updated itinerary, but also to keep eye on MyChart changes. Requested call back or [employer] message confirming he received this message. AND HARD OF HEARING TEACHER documented in this encounter Plan of Treatment Not on file documented as of this encounter Visit Diagnoses Not on filedocumented in this encounter 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 Care Teams Harvesting Manager Relationship Specialty Start Date End Date Halie Khan MD [address] [address] PCP - General Critical Care Med 11/23/20 02/01/21 Josué Del Valle MD PhD Medical Oncologist/Casting Machine Service Operator Medical Oncology 08/26/19 documented as of this encounter
--- OUTSIDE RECORDS SUMMARY | 2024-11-22 13:03 | XMS_ITS | Encounter Summary ---
Author Organization [facility] Address [address] [place] [address] Phone Care Team Providers Care Team Facilitator Name Role Phone Josué Del Valle MD PhD Unavailable [phone] Kirt Lindsay DO Primary Care Provider [phone] Encounter Details Date Type Department Care Team (Late st Contact Info) Description 05/08/2021 Telephone [facility] Ophthalmology [facility] Health 6th [place] [address] Ravi Hughes MD [address] [place] [address] 6 [place] [address] Social History Tobacco Use Types Packs/Day Years Used Date Smoking Tobacco: Every Day Cigarettes 0.3 39 Started: 1984 Smokeless Tobacco: Never Sex and Gender Information Value Date Recorded Sex Assigned at Not on file Legal 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 NEEDS TO STOP XARELTO 3 DAYS BEFORE SURGERY (, SAT, ). NPO AFTER MIDNITE ON , 5:45 AM ARRIVAL TIME ON Saturday AT [facility] F[facility]. DAY 1 P OV 8:00AM ON Saturday AT [facility]. documented in this encounter Plan of Treatment Not on file documented as of this encounter Visit Diagnoses Not on filedocumented in this encounter 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 Care Teams Team Facilitator Relationship Specialty Start Date End Date Kirt Lindsay DO PCP - General Internal Medicine 02/02/21 Josué Del Valle MD PhD Medical Oncologist/Water Reuse Program Manager Medical Oncology 08/26/19 documented as of this encounter
--- OUTSIDE RECORDS SUMMARY | 2024-11-22 13:03 | XMS_ITS | Encounter Summary ---
Author Organization [facility] Address [address] [place] [address] Phone Care Team Providers Care Mineral Surveyor Name Role Phone Josué Del Valle MD PhD Unavailable [phone] Halie Khan MD Primary Care Provider [phone] Encounter Details Date Type Department Care Team (Late st Contact Info) Description 12/12/2020 Orders Only [facility] Oncology [address] [facility] 7th [place] [address] [place] [address] Jordan Meyers RN [address] [place], [place] [id number] Social History Tobacco Use Types Packs/Day Years Used Date Smoking Tobacco: Every Day Smokeless Tobacco: Never Comments:Pt not interested i n smoking cessation program Sex and Gender Information Value Date Recorded Sex Assigned at Not on file Legal 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 Gender Identity Not on file Sexual Orientation Not on file documented as of this encounter Plan of Treatment Not on file documented as of this encounter Visit Diagnoses Not on filedocumented in this encounter Additional Health Concerns 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 September 06, 2011 11/26/2010 11/26/201006/18 06/2021 5:00 AM CDT documented as of this encounter Care Teams Mineral Surveyor Relationship Specialty Start Date End Date Halie Khan MD [address] [facility] [address] [place] [address] PCP - General Critical Care Med 11/23/20 02/01/21 Josué Del Valle MD PhD Medical Oncologist/Locomotive Supervisor Medical Oncology 08/26/19 documented as of this encounter
--- OUTSIDE RECORDS SUMMARY | 2024-11-22 13:03 | XMS_ITS | Encounter Summary ---
Author Organization [facility] Address [address] [place] [address] Phone Care Team Providers Care Collar Separator Name Role Phone Josué Del Valle MD PhD Unavailable Kirt Lindsay DO Primary Care Provider [phone] Encounter Details Date Type Department Care Team (Late st Contact Info) Description 02/03/2021 11:20 AM CDT Office Visit [facility] [address] [facility] Advanced Medicine 7th Floor, [place] [address] Narcisa Kilgore, ARMEN [address] DIV IM BONE MARROW TRANSPLANT, [address] [place], [place] [id number] 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); Wibyy-jlixtq-cseh disease (CMS/HCC) Social History Tobacco Use Types Packs/Day Years Used Date Smoking Tobacco: Every Day Smokeless Tobacco: Never Tobacco Cessation:Ready to Q uit: No; Counseling Given: No Comments:Pt not interested in smoking cessation program Sex and Gender Information Value Date Recorded Sex Assigned at Not on file Legal 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 Can also register on [facility] Website or Health system. ? ?Cancer Patients & the COVID-19 Vaccine [...] represents the current opinions of physicians at [facility] [place], [facility] and [facility] related to COVID-19 vaccines forcancer patients. Q: [...] opinions of physicians and other experts at [facility], [facility] and [facility], we recommend that cancer patients who have [...] a live virus. Such live-virus vaccines include metqckz-pcmhl-hstmmlt (MMR) and varicella (chickenpox) vaccines, as well as the nasal mist version of the flu vaccine. The standard flu shot does not contain live virus and is safe for cancer patients to receive. Q: How do I get the vaccine? A: [facility] and [facility] are working quickly to make the COVID-19 vaccine available to those who are eligible in accordance with federal and state guidelines. You may pre-register for the vaccine at [email or web address]. They will contact you when your eligibility window opens, and when vaccine supply and distribution capacity are available. It could be several weeks orlonger before you are able to schedule. [facility] and other health systems also have websites where you may pre-register. You may pre-register on multiple sites. We recommend that you accept the first opportunity providedto receive a vaccine - after you and your oncologist have discussed when you should receive it. Formore information, visit [email or web address]. Q: Should cancer patients who have recovered [...] members that you see. COVID-19 Vaccine Line: [phone] - This line is an automated response and has 3 options: ; Option 1?- Automated message encouraging online registration, provide the web page above. ; Option 2?- Support for those without e-mail or Internet, routing to a pharmacy customer care specialist who can help the non-digital population register without going through the online registration form. Note that this department has limited staff, and hold times may be long.?It is currently available from8 a.m.-4 p.m., Saturday-Saturday. ; Option 3?- Nurses line that can answer questions about the vaccine itself ??? COVID-19 Vaccine Line: [phone] - This line is an automated response and has 3 options: ; Option 1?- Automated message encouraging online registration, provide the web page above. ; Option 2?- Support for those without e-mail or Internet, routing to a pharmacy customer care specialist who can help the non-digital population register without going through the online registration form. Note that this department has limited staff, and hold times may be long.?It is currently available from8 a.m.-4 p.m., Saturday-Saturday. ; Option 3?- Nurses line that can answer questions about the vaccine itself documented in this encounter Progress Notes * Narcisa Kilgore NP - 02/03/2021 11:20 AM CDT [facility] DEPARTMENT OF MEDICINE - SECTION OF BMT & LEUKEMIA [address] [place] [address]- PHONE: FAX: PATIENT NAME: BRI JONES : 1965 ROSY: 02/03/2021 Patient has a history of AML. 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 TREATMENT HISTORY: 1. Induction with 7+3 and HiDAC consolidation x3. 2. Decitabine maintenance on the CALGB 78978 protocol. 3. 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 [...] transplant + 4104 days ago. 2. Chronic bjqkd-eouali-tpbf disease. He Is off Jakafi stopped on his own. He completed cycle 1 and2. January 24 he didn't molded goods spot picker drug and MMF 1 g b.i.d., [...] PCR, quantitative Blood (06/08/2021 10:15 AM CDT) [facility] CMV DNA Not Detected [facility] Comment: Interpretive Data: The quantifiable range of this assay is 137 IUnits/mL to 9,100,000 IUnits/mL (2.14 log IUnits/mL to 6.96 log IUnits/mL). Testing was performed by the MICHEL AmpliPrep/MICHEL TaqMan CMV Test ([employer] Testing performed at [facility] Current interpretive data was last revised on 17. Blood specimen (specimen) 06/08/2021 10:15 AM CDT 06/08/2021 10:15 AM CDT Narcisa Kilgore NP LAB MICROBIOLOGY - GENERA L ORDERABLES Final Result [facility] [place] [address] * Tacrolimus level random (06/08/2021 9:42 AM CDT) Tacrolimus random <1.0 ng/mL [facility] Comment: Undetectable. ??Please verify that the correct immunosuppressant test was requested. Interpretive Data Testing performed by liquid chromatography-tandem mass spectrometry. ??Therapeutic concentrations vary depending on type of transplanted organ and time elapsed since transplant. ??Typical trough concentrations range from 5-15 ng/mL. ??This test was developed and its performance characteristics determined by the [facility] consistent with CLIA requirements. ??This test has not been cleared or approved by the US Food and Drug administration. ??Current interpretive data last reviewed 2020. Blood specimen (specimen) 06/08/2021 9:42 AM CDT 06/08/2021 9:57 AM CDT Narcisa Kilgore DIRECTOR ERP LAB BLOOD ORDERABLES Pilar l Result Performing Organization Address [facility] Co de Phone Number [facility] Department [place] [employer] [place] [address] * Uric acid (06/08/2021 9:37 AM CDT) Pathologist [facility] Uric acid 4.9 3.0 - 8.0 mg/dL [facility] Comment:Testing performed by : [facility], [address] [place] [phone] Blood specimen (specimen) 06/08/2021 9:37 AM CDT 06/08/2021 9:39 AM CDT Narcisa Kilgore DIRECTOR ERP LAB BLOOD ORDERABLES Pilar l Result Performing Organization Address [facility] Co de Phone Number [facility] [place] [employer] [address] * Magnesium (06/08/2021 9:37 AM CDT) Pathologist [facility] Magnesium 1.5 1.4 - 2.5 mg/dL [facility] Comment:Testing performed by : [facility], [address] [place] [phone] Blood specimen (specimen) 06/08/2021 9:37 AM CDT 06/08/2021 9:39 AM CDT Narcisa Kilgore DIRECTOR ERP LAB BLOOD ORDERABLES Pilar l Result Performing Organization Address [facility] Co de Phone Number [facility] Department [place] [address] * Lactate dehydrogenase (LD) (06/08/2021 9:37 AM CDT) Lactate dehydrogenase (LDH) 142 100 - 250 Units/L [facility] Comment:Testing performed by : [facility], [address] [place] [phone] Blood specimen (specimen) 06/08/2021 9:37 AM CDT 06/08/2021 9:39 AM CDT Narcisa Kilgore DIRECTOR ERP LAB BLOOD ORDERABLES Pilar l Result Performing Organization Address [facility] de Phone Number [facility] [place] [address] * (ABNORMAL) Comprehensive metabolic panel (06/08/2021 9:37 AM CDT) Pathologist [facility] Sodium 138 135 - 145 mmol/L [facility] Comment:Testing performed by : [facility], [address] [place] [phone] Potassium, pl 4.6 3.3 - 4.9 mmol/L [facility] Comment:Testing performed by : [facility], [address] [place] [phone] Chloride 104 97 - 110 mmol/L [facility] Comment:Testing performed by : [facility], [address] [place] [phone] CO2 29 22 - 32 mmol/L [facility] Comment:Testing performed by : [facility], [address] [place] [phone] Anion gap 5 2 - 15 mmol/L [facility] Comment:Testing performed by : [facility], [address] [place] [phone] BUN 14 8 - 25 mg/dL [facility] Comment:Testing performed by : [facility], [address] [place] [phone] Creatinine 0.85 0.80 - 1.30 mg/dL [facility] Comment:Testing performed by : [facility], [address] [place] [phone] Glucose 204(H) 70 - 199 mg/dL [facility] [...] was last revised 2017. Testing performed by: [facility], [address] [place] [phone] Calcium 9.7 8.5 - 10.3 mg/dL [facility] Comment:Testing performed by : [address] [address] Bilirubin, total 0.5 0.1 - 1.2 mg/dL [facility] Comment:Testing performed by : [address] [address] Protein, pl 7.6 6.5 - 8.5 g/dL [facility] Comment:Testing performed by : [address] [address] Albumin 4.1 3.5 - 5.0 g/dL [facility] Comment:Testing performed by : [address] [address] Alk phos 195(H) 40 - 130 Units/L [facility] Comment:Testing performed by : [facility], [address] [place], [place] [phone] ALT 16 7 - 55 Units/L [facility] Comment:Testing performed by : [facility], [address] [place] [phone] AST 15 10 - 50 Units/L [facility] Comment:Testing performed by : [facility], [address] [place] [phone] Blood specimen (specimen) 06/08/2021 9:37 AM CDT 06/08/2021 9:39 AM CDT us Narcisa Kilgore DIRECTOR ERP LAB BLOOD ORDERABLES Pilar l Result [facility] Department [place] [address] * (ABNORMAL) CBC with auto differential (06/08/2021 9:37 AM CDT) WBC 8.3 3.8 - 9.8 K/cumm [facility] Comment:Testing performed by : [facility], [address] [place] [phone] Hgb 13.6(L) 13.8 - 17.2 g/dL [facility] Comment:Testing performed by : [facility], [address] [place] [phone] Hct 40.0(L) 40.7 - 50.3 % [facility] Comment:Testing performed by : [facility], [address] [place] [phone] Plt 321 140 - 440 K/cumm [facility] Comment:Testing performed by : [address] [phone] MPV 7.7 6.8 - 10.4 fL [facility] Comment:Testing performed by : [address] [address] RBC 3.93(L) 4.50 - 5.70 M/cumm [facility] Comment:Testing performed by : [address] [address] MCV 101.8(H) 80.0 - 97.6 fL [facility] Comment:Testing performed by : [facility], [address] [place] [phone] MCH 34.7(H) 26.7 - 33.7 pg [facility] Comment:Testing performed by : [facility], [address] [place] [phone] MCHC 34.1 32.7 - 35.5 g/dL [facility] Comment:Testing performed by : [facility], [address] [place] [phone] RDW CV 13.8 11.8 - 14.6 % [facility] Comment:Testing performed by : [facility], [address] [place] [phone] NRBC abs 0.00 0.00 - 0.01 K/cumm [facility] Comment:Testing performed by : [facility], [address] [place] [phone] Blood specimen (specimen) 06/08/2021 9:37 AM CDT 06/08/2021 9:39 AM CDT us Narcisa Kilgore DIRECTOR ERP LAB BLOOD ORDERABLES Pilar armas Result [facility] [place] [address] documented in this encounter Visit Diagnoses Diagnosis AML (acute myeloid leukemia) in remission (HCC)- Primary Otiip-iedyxd-oafh disease (HCC) documented in this encounter Orders Appointment Requests Count Last Ordered Date Fi rst Ordered Date ONCBCN CLINIC APPOINTMENT REQUEST 1 021 documented in this encounter 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 Care Teams Collar Separator Relationship Specialty Start Date End Date Kirt Lindsay DO PCP - General Internal Medicine 02/02/21 Josué Del Valle MD PhD Medical Oncologist/Polysomnographic Tech Medical Oncology 08/26/19 documented as of this encounter
--- OUTSIDE RECORDS SUMMARY | 2024-11-22 13:03 | XMS_ITS | Encounter Summary ---
Author Organization [facility] Address [address] [place] [address] Phone Care Team Providers Care Lockstitch Cup Setter Name Role Phone Josué Del Valle MD PhD Unavailable [phone] Kirt Lindsay DO Primary Care Provider [phone] Encounter Details Date Type Department Care Team (Late st Contact Info) Description 02/02/2021 Orders Only [facility] On[facility] [address] [facility] Advanced Medicine 7th [place] [address] [place] [address] Eneida Gibson MD [address] [place] [address] Vitamin D deficiency (Primary Dx); Osteopenia, unspecified location; Type 2 diabetes mellitus with hyperosmolarity without coma, with long-term current use of insulin ([facility]) Social History Tobacco Use Types Packs/Day Years Used Date Smoking Tobacco: Every Day Smokeless Tobacco: Never Comments:Pt not interested i n smoking cessation program Sex and Gender Information Value Date Recorded Sex Assigned at Not on file 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 ??Minority populations were underrepresented and children were not included. ?? (Diabetes Care 31:7252-1049, 2008). ??The eAG is not equivalent to a fasting glucose. Blood specimen (specimen) 02/03/2021 12:04 PM CDT 02/03/2021 12:23 PM CDT us Eneida Gibson MD LAB BLOOD ORDERABLES Final Resul t [facility] Department [place] [address] documented in this encounter Visit Diagnoses Diagnosis Vitamin D deficiency- Primary Osteopenia, unspecified location Type 2 diabetes mellitus with hyperosmolarity without coma, with long-term current use of insulin (HCC) documented in this encounter 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 Care Teams Lockstitch Cup Setter Relationship Specialty Start Date End Date Kirt Lindsay DO PCP - General Internal Medicine 02/02/21 Josué Del Valle MD PhD Medical Oncologist/Cable Assembler And Swager Medical Oncology 08/26/19 documented as of this encounter
--- OUTSIDE RECORDS SUMMARY | 2024-11-22 13:03 | XMS_ITS | Encounter Summary ---
Author Organization [facility] Address [address] [facility] [address] [place] [address] Phone Care Team Providers Care Firewood Cutter Name Role Phone Josué Del Valle MD PhD Unavailable [phone] Kirt Lindsay DO Primary Care Provider [phone] Reason for Referral * Diagnostic Imaging (Routine) - Closed Specialty Diagnoses / Procedures Referred By Controberta t Referred To Contact Diagnoses Combined form of senile cataract of both eyes Procedures Corneal Topography - OU - Both Eyes Ravi Hughes MD [address] [address] Phone: tel: fax: [facility] (All Locations) Referral ID Status Reason Start Date Expiration Date Visits Re quested Visits Authorized [id number] Closed 02/15/2021 03/17/2022 1 1 * Diagnostic Imaging (Routine) - Closed Specialty Diagnoses / Procedures Referred By Controberta anderson Referred To Contact Diagnoses Combined form of senile cataract of both eyes Procedures IOL Biometry - OU - Both Eyes Ravi Hughes MD [address] [address] Phone: tel: fax: [facility] (All Locations) Referral ID Status Reason Start Date Expiration Date Visits Re quested Visits Authorized [id number] Closed 02/15/2021 03/17/2022 1 1 Reason for Visit * Reason Comments Dry Eye Encounter Details Date Type Department Care Team (Late st Contact Info) Description 02/15/2021 1:30 PM CDT Office Visit [facility] Ophthalmology [address] [facility] 6th [place] [phone] Ravi Hughes MD [address] [facility] [address] [place] [address] Combined form of senile cataract of both eyes (Primary Dx) Social History Tobacco Use Types Packs/Day Years Used Date Smoking Tobacco: Every Day Smokeless Tobacco: Never Comments:Pt not interested i n smoking cessation program Sex and Gender Information Value Date Recorded Sex Assigned at Not on file 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
--- OUTSIDE RECORDS SUMMARY | 2024-11-22 13:03 | XMS_ITS | Encounter Summary ---
Author Organization [facility] Address [address] [place] [address] Phone Care Team Providers Care Machine Shop Worker Name Role Phone Josué Del Valle MD PhD Unavailable Halie Khan MD Primary Care Provider [phone] Encounter Details Date Type Department Care Team (Late st Contact Info) Description 11/30/2020 Telephone [facility] Bone Marrow Transplant [address] [facility] Advanced Medicine 7th Floor, [place] [address] Josué Del Valle MD PhD [address] DIV IM BONE MARROW TRANSPLANT, [address] [place] [address] Social History Tobacco Use Types Packs/Day Years Used Date Smoking Tobacco: Every Day Smokeless Tobacco: Never Comments:Pt not interested i n smoking cessation program Sex and Gender Information Value Date Recorded Sex Assigned at Not on file Legal 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 They were mailing it the next day. CAL LABORATORY TECHNICIAN * Telephone Encounter - Katrin Bryson - 11/30/2020 12:52 PM CST Pt would like a copy of his itinerary mailed to him. CAL LABORATORY TECHNICIAN documented in this encounter Plan of Treatment Not on file documented as of this encounter Visit Diagnoses Not on filedocumented in this encounter 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 Care Teams Machine Shop Worker Relationship Specialty Start Date End Date Halie Khan MD [address] [address] PCP - General Critical Care Med 11/23/20 02/01/21 Josué Del Valle MD PhD Medical Oncologist/Valving Machine Operator Medical Oncology 08/26/19 documented as of this encounter
--- OUTSIDE RECORDS SUMMARY | 2024-11-22 13:03 | XMS_ITS | Encounter Summary ---
Author Organization [facility] Address [address] [place] [address] Phone Care Team Providers Care Grazing Aide Name Role Phone Josué Del Valle MD PhD Unavailable [phone] Kirt Lindsay DO Primary Care Provider [phone] Reason for Visit * Reason Onset Date Comments medical clearance for Sx? 04/26/2021 Encounter Details Date Type Department Care Team (Late st Contact Info) Description 04/26/2021 Telephone [facility] Ophthalmology [address] [place], [place] [id number] Ravi Hughes MD [address] [phone] medical clearance for Sx? Social History Tobacco Use Types Packs/Day Years Used Date Smoking Tobacco: Every Day Smokeless Tobacco: Never Comments:Pt not interested i n smoking cessation program Sex and Gender Information Value Date Recorded Sex Assigned at Not on file Legal Sex Male 10:48 AM MILL WORK Gender Identity Not on file Sexual Orientation [...] answer. Best contact number for Sintia is [phone] * Telephone Encounter - Mateo Grider - 04/27/2021 11:41 AM CDT Sintia from Dr. Lindsay office requesting to know if pt needs medical clearance for his procedure with Dr. Hughes. Sintia [phone] * Telephone Encounter - Robinson Gilbert - [...] documented as of this encounter Care Teams Grazing Aide Relationship Specialty Start Date End Date Kirt Lindsay DO PCP - General Internal Medicine 02/02/21 Josué Del Valle MD PhD Medical Oncologist/Professor Sculpture Medical Oncology 08/26/19 documented as of this encounter
--- OUTSIDE RECORDS SUMMARY | 2024-11-22 13:03 | XMS_ITS | Encounter Summary ---
Author Organization [facility] Address [address] [place] [address] Phone Care Team Providers Care Solid Propellant Processor Name Role Phone Josué Del Valle MD PhD Unavailable [phone] Halie Khan MD Primary Care Provider [phone] Encounter Details Date Type Department Care Team (Late st Contact Info) Description 12/21/2020 Orders Only [facility] Bone Marrow Transplant [address] [facility] Medicine 7th Floor, [place] [address] Silva Mortensen RMA AML (acute myeloid leukemia) in remission ([facility]/HCC) Social History Tobacco Use Types Packs/Day Years Used Date Smoking Tobacco: Every Day Smokeless Tobacco: Never Comments:Pt not interested i n smoking cessation program Sex and Gender Information Value Date Recorded Sex Assigned at Not on file 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 Gender Identity Not on file Sexual Orientation Not on file documented as of this encounter Ordered Prescriptions Prescription Sig Dispense Quantity Refills Last Filled Start Date End Date albuterol HFA (Ventolin HFA) 90 mcg/actuation inhalerIndications :AML (acute myeloid leukemia) in remission ([facility]) Inhale 1-2 puffs every 4 [...] documented as of this encounter Care Teams Solid Propellant Processor Relationship Specialty Start Date End Date Halie Khan MD [address] [place] [address] PCP - General Critical Care Med 11/23/20 02/01/21 Josué Del Valle MD PhD Medical Oncologist/Data Analytics Architect Medical Oncology 08/26/19 documented as of this encounter
--- OUTSIDE RECORDS SUMMARY | 2024-11-22 13:03 | XMS_ITS | Encounter Summary ---
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 No Please select the performing region: [facility] (All Locations) [[id number]] Please select the performing department: [facility] 7 [[id number]] To provider: YOLANDA GARCIA [[id number]] # of visits: 12 DCAST SYSTEMS ENGINEER Reason for Visit * Consultation (Routine) - Closed Specialty Diagnoses / Procedures Referred By Contac t Referred To Contact Oncology Diagnoses H/O allogeneic bone marrow transplant (HCC) AML (acute myeloid leukemia) in remission (HCC) Procedures ONCBCN ARM DRAW APPT ONC LAB ONLY [facility] Oncology [facility] 7th [place] [address] [place] [address] Phone: tel: Yolanda Garcia MD [address] [place] [address] Phone: tel: fax: Referral ID Status Reason Start Date Expiration Date V isits Requested Visits Authorized [id number] Closed Specialty Services Required 11/22/2020 05/21/2021 12 12 Encounter Details Date Type Department Care Team (Late st Contact Info) Description 11/23/2020 8:30 AM BROADCAST SYSTEMS ENGINEER Lab [facility] Oncology [facility] 7th [place] [address] [place] [address] H/O allogeneic bone marrow transplant (CMS/HCC); AML (acute myeloid leukemia) in remission ([facility]/HCC); Type 2 diabetes mellitus with hyperosmolarity without coma, with long-term current use of insulin ([facility]/HCC) Social History Tobacco Use Types Packs/Day Years Used Date Smoking Tobacco: Every Day Smokeless Tobacco: Never Comments:Pt not interested i n smoking cessation program Sex and Gender Information Value Date Recorded Sex Assigned at Not on file Legal Sex Male 10:48 AM BROADCAST SYSTEMS ENGINEER Gender Identity Not on file [...] DIFFERENTIAL AUTO Routine 11/23/2020 9:1 4 AM BROADCAST SYSTEMS ENGINEER 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) H/O allogeneic bone marrow transplant (CMS/HCC) CBC WITH AUTO DIFFERENTIAL Routine 11/23/2020 9:14 AM BROADCAST SYSTEMS ENGINEER 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) H/O allogeneic bone marrow transplant (CMS/HCC) VITAMIN D 25 HYDROXY Routine 11/23/2020 9:14 AM BROADCAST SYSTEMS ENGINEER 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) H/O allogeneic bone marrow transplant (CMS/HCC) T-HELPER CELLS (CD4) COUNT Routine 11/23/2020 9:14 AM BROADCAST SYSTEMS ENGINEER 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) H/O allogeneic bone marrow transplant (CMS/HCC) Type 2 diabetes mellitus with hyperosmolarity without coma, with long-term current use of insulin (CMS/HCC) LACTATE DEHYDROGENASE Routine 11/23/2020 9:14 AM BROADCAST SYSTEMS ENGINEER 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) H/O allogeneic bone marrow transplant (CMS/HCC) HEMOGLOBIN A1C Routine 11/23/2020 9:14 AM BROADCAST SYSTEMS ENGINEER 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) H/O allogeneic bone marrow transplant ([facility]/HCC) Type 2 diabetes mellitus with hyperosmolarity without coma, with long-term current use of insulin ([facility]/HCC) IGG Routine 11/23/2020 9:14 AM BROADCAST SYSTEMS ENGINEER H/O allogeneic bone marrow transplant (CMS/HCC) LIPID PANEL Routine 11/23/2020 9:14 AM BROADCAST SYSTEMS ENGINEER 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) H/O allogeneic bone marrow transplant (CMS/HCC) Type 2 diabetes mellitus with hyperosmolarity without coma, with long-term current use of insulin ([facility]/HCC) COMPREHENSIVE METABOLIC PANEL Routine 11/23/2020 9:14 AM BROADCAST SYSTEMS ENGINEER 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) H/O allogeneic bone marrow transplant (CMS/HCC) documented in this encounter Results * (ABNORMAL) T-helper cells (CD4) count (11/23/2020 9:14 AM BROADCAST SYSTEMS ENGINEER) CD4 pct 41 31 - 64 % [facility] Comment:Repeated and verifie d. CD4 Absolute 1,796(H) 365 - 1,294 cells/mcL [facility] Comment:Repeated and verifie d. Blood specimen (specimen) 11/23/2020 9:14 AM BROADCAST SYSTEMS ENGINEER 11/23/2020 3:45 PM BROADCAST SYSTEMS ENGINEER us Narcisa Kilgore NP LAB BLOOD ORDERABLES Pilar armas Result [facility] [address] [facility] Department [place] [address] * (ABNORMAL) Lipid panel (11/23/2020 9:14 AM BROADCAST SYSTEMS ENGINEER) Cholesterol 190 30 - 199 mg/dL [facility] [...] revised on 2018. HDL 38(L) >=40 mg/dL [facility] Comment: Interpretive Data Ages < or = [...] 2018. LDL, calculated 107 <=129 mg/dL [facility] Comment: Interpretive Data Ages < or = [...] on 2018. Non-HDL Cholesterol 152 mg/dL [facility] Comment: Interpretive Data Ages < or = [...] last revised on 2018. Chol/HDL ratio 5 [facility] Blood specimen (specimen) 11/23/2020 9:14 AM BROADCAST SYSTEMS ENGINEER 11/23/2020 11:45 AM BROADCAST SYSTEMS ENGINEER us Narcisa Kilgore NP LAB BLOOD ORDERABLES Pilar armas Result [facility] [address] [facility] Department [place] [address] * (ABNORMAL) Hemoglobin A1c (11/23/2020 9:14 AM BROADCAST SYSTEMS ENGINEER) Hgb A1C 12.1(H) 4.0 - 5.6 % [facility] Estimated Average Glucose 301 mg/dL [facility] Comment: The ADA recommends reporting an estimated Average Glucose (eAG) with all Hemoglobin A1c results using the equation derived from a study of 507 normal and diabetic adults. ??Minority populations were underrepresented and children were not included. ?? (Diabetes Care 31:3318-3927, 2008). ??The eAG is not equivalent to a fasting glucose. Blood specimen (specimen) 11/23/2020 9:14 AM BROADCAST SYSTEMS ENGINEER 11/23/2020 3:16 PM BROADCAST SYSTEMS ENGINEER Narcisa Kilgore MONTESSORI TEACHER LAB BLOOD ORDERABLES Pilar l Result [facility] [place] [address] * (ABNORMAL) Differential, auto (11/23/2020 9:14 AM BROADCAST SYSTEMS ENGINEER) Neutrophil abs 2.8 1.8 - 6.6 K/cumm [facility] Comment:Testing performed by : [facility], [address] [place] [phone] Lymphocyte abs 4.5(H) 1.2 - 3.3 K/cumm [facility] Comment:Testing performed by : [facility], [address] [place] [phone] Monocyte abs 0.8 0.2 - 1.2 K/cumm [facility] Comment:Testing performed by : [facility], [address] [place] [phone] Eosinophil abs 0.7(H) 0.0 - 0.5 K/cumm [facility] Comment:Testing performed by : [facility], [address] [place] [phone] Basophil abs 0.1 0.0 - 0.2 K/cumm [facility] Comment:Testing performed by : [facility], [address] [place] [phone] Neutrophil pct 31.6 % [facility] Comment: Interpretive Data Percent cell count reference ranges are not reported, since discordance with absolute values may lead to misinterpretation of CBC data. Current Interpretive Data was last revised on 2018. Testing performed by: [facility], [address] [place] [phone] Lymphocyte pct 50.7 % [facility] Comment: Interpretive Data Percent cell count reference ranges are not reported, since discordance with absolute values may lead to misinterpretation of CBC data. Current Interpretive Data was last revised on 2018. Testing performed by: [facility], [address] [place] [phone] Monocyte pct 8.6 % [facility] Comment:Testing performed by : [facility], [address] [place] [phone] Eosinophil pct 7.8 % [facility] Comment:Testing performed by : [facility], [address] [place] [phone] Basophil pct 1.3 % [facility] Comment:Testing performed by : [address] [phone] Blood specimen (specimen) 11/23/2020 9:14 AM BROADCAST SYSTEMS ENGINEER 11/23/2020 9:16 AM BROADCAST SYSTEMS ENGINEER Josué Del Valle MD PhD LAB BLOOD ORDERABLES Fin al Result [facility] [address] [facility] Department [place] [address] * (ABNORMAL) CBC with auto differential (11/23/2020 9:14 AM BROADCAST SYSTEMS ENGINEER) WBC 8.8 3.8 - 9.8 K/cumm [facility] Comment:Testing performed by : [facility], [address] [place] [phone] Hgb 13.1(L) 13.8 - 17.2 g/dL [facility] Comment:Testing performed by : [facility], [address] [place] [phone] Hct 38.5(L) 40.7 - 50.3 % [facility] Comment:Testing performed by : [facility], [address] [place] [phone] Plt 236 140 - 440 K/cumm [facility] Comment:Testing performed by : [address] [address] MPV 8.2 6.8 - 10.4 fL [facility] Comment:Testing performed by : [facility], [address] [place] [phone] RBC 3.84(L) 4.50 - 5.70 M/cumm [facility] Comment:Testing performed by : [facility], [address] [place], [place] [phone] MCV 100.2(H) 80.0 - 97.6 fL [facility] Comment:Testing performed by : [facility], [address] [place] [phone] MCH 34.1(H) 26.7 - 33.7 pg [facility] Comment:Testing performed by : [facility], [address] [place] [phone] MCHC 34.0 32.7 - 35.5 g/dL [facility] Comment:Testing performed by : [facility], [address] [place] [phone] RDW CV 13.5 11.8 - 14.6 % [facility] Comment:Testing performed by : [facility], [address] [place] [phone] NRBC abs 0.00 0.00 - 0.01 K/cumm [facility] Comment:Testing performed by : [facility], [address] [place] [phone] Blood specimen (specimen) 11/23/2020 9:14 AM BROADCAST SYSTEMS ENGINEER 11/23/2020 9:16 AM BROADCAST SYSTEMS ENGINEER Josué Del Valle MD PhD LAB BLOOD ORDERABLES Fin al Result [facility] Department [place] [address] * (ABNORMAL) Comprehensive metabolic panel (11/23/2020 9:14 AM BROADCAST SYSTEMS ENGINEER) Sodium 138 135 - 145 mmol/L [facility] Comment:Testing performed by : [address] [address] Potassium, pl 4.1 3.3 - 4.9 mmol/L [facility] Comment:Testing performed by : [facility], [address] [place] [phone] Chloride 100 97 - 110 mmol/L [facility] Comment:Testing performed by : [facility], [address] [place] [phone] CO2 32 22 - 32 mmol/L [facility] Comment:Testing performed by : [facility], [address] [place] [phone] Anion gap 6 2 - 15 mmol/L [facility] Comment:Testing performed by : [facility], [address] [place] [phone] BUN 10 8 - 25 mg/dL [facility] Comment:Testing performed by : [facility], [address] [place] [phone] Creatinine 0.83 0.80 - 1.30 mg/dL [facility] Comment:Testing performed by : [address] [address] Glucose 349(H) 70 - 199 mg/dL [facility] [...] was last revised 2017. Testing performed by: [facility], [address] [place] [phone] Calcium 9.3 8.5 - 10.3 mg/dL [facility] Comment:Testing performed by : [facility], [address] [place] [phone] Bilirubin, total 0.4 0.1 - 1.2 mg/dL [facility] Comment:Testing performed by : [address] [address] Protein, pl 6.7 6.5 - 8.5 g/dL [facility] Comment:Testing performed by : [facility], [address] [place] [phone] Albumin 3.8 3.5 - 5.0 g/dL [facility] Comment:Testing performed by : [facility], [address] [place] [phone] Alk phos 175(H) 40 - 130 Units/L [facility] Comment:Testing performed by : [facility], [address] [place] [phone] ALT 30 7 - 55 Units/L [facility] Comment:Testing performed by : [facility], [address] [place] [phone] AST 37 10 - 50 Units/L [facility] Comment:Testing performed by : [facility], [address] [place] [phone] Blood specimen (specimen) 11/23/2020 9:14 AM BROADCAST SYSTEMS ENGINEER 11/23/2020 9:16 AM BROADCAST SYSTEMS ENGINEER Josué Del Valle MD PhD LAB BLOOD ORDERABLES Fin al Result Performing Organization Address City/[facility] de Phone Number [facility] [place] [phone] * Lactate dehydrogenase (LD) (11/23/2020 9:14 AM BROADCAST SYSTEMS ENGINEER) Lactate dehydrogenase (LDH) 183 100 - 250 Units/L [facility] Comment:Testing performed by : [facility], [address] [place] [phone] Blood specimen (specimen) 11/23/2020 9:14 AM BROADCAST SYSTEMS ENGINEER 11/23/2020 9:16 AM BROADCAST SYSTEMS ENGINEER Josué Del Valle MD PhD LAB BLOOD ORDERABLES Fin al Result Performing Organization Address City/[facility]/ZIP Co de Phone Number [facility] [place] [address] * (ABNORMAL) Vitamin D 25 hydroxy (11/23/2020 9:14 AM BROADCAST SYSTEMS ENGINEER) Pathologist [facility] Vitamin D 25-OH 15(L) 30 - 80 ng/mL [facility] Blood specimen (specimen) 11/23/2020 9:14 AM BROADCAST SYSTEMS ENGINEER 11/23/2020 9:51 AM BROADCAST SYSTEMS ENGINEER Josué Del Valle MD PhD LAB BLOOD ORDERABLES Fin al Result Performing Organization Address City/[facility] Co de Phone Number [facility] [place] [address] * IgG (11/23/2020 9:14 AM BROADCAST SYSTEMS ENGINEER) [facility] Immunoglobulin G 1,048.0 700.0 - 1,600.0 mg/dL [facility] Blood specimen (specimen) 11/23/2020 9:14 AM BROADCAST SYSTEMS ENGINEER 11/23/2020 9:51 AM BROADCAST SYSTEMS ENGINEER Josué Del Valle MD PhD LAB BLOOD ORDERABLES Fin al Result Performing Organization Address [facility] de Phone Number [facility] [place] [address] documented in this encounter Visit Diagnoses Diagnosis [...] documented as of this encounter Care Teams Voip Technician Relationship Specialty Start Date End Date Halie Khan MD [address] [facility] [address] [place] [address] PCP - General Critical Care Med 11/23/20 02/01/21 Josué Del Valle MD PhD Medical Oncologist/Personnel Recruiter Medical Oncology 08/26/19 documented as of this encounter
--- OUTSIDE RECORDS SUMMARY | 2024-11-22 13:03 | XMS_ITS | Encounter Summary ---
Author Organization [facility] Address [address] [place] [address] Phone Care Team Providers Care Volunteer Services Specialist Name Role Phone Josué Del Valle MD PhD Unavailable Halie Khan MD Primary Care Provider [phone] Encounter Details Date Type Department Care Team (Late st Contact Info) Description 01/23/2021 Telephone [facility] Ophthalmology [address] [facility] Health 6th [place] [address] Ravi Hughes MD [address] [place] [address] 6 [place] [address] Social History Tobacco Use Types Packs/Day Years Used Date Smoking Tobacco: Every Day Smokeless Tobacco: Never Comments:Pt not interested i n smoking cessation program Sex and Gender Information Value Date Recorded Sex Assigned at Not on file Legal Sex Male 10:48 AM SUPERVISOR SHOW OPERATIONS Gender Identity Not on file Sexual Orientation Not on file documented as of this encounter Miscellaneous Notes * Telephone Encounter - Anaid Cat - 01/23/2021 12:18 PM CST Called to reschedule pt's missed 09-26-20 appointment and was unable to leave message due to mailboxbeing full. 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
--- OUTSIDE RECORDS SUMMARY | 2024-11-22 13:03 | XMS_ITS | Encounter Summary ---
Author Organization [facility] Address [address] [place] [address] Phone Care Team Providers Care Illusionist Name Role Phone Josué Del Valle MD PhD Unavailable [phone] Kirt Lindsay DO Primary Care Provider [phone] Encounter Details Date Type Department Care Team (Late st Contact Info) Description 03/13/2021 Telephone [facility] Ophthalmology [address] [facility] Health 6th [place] [address] Ravi Hughes MD [address] [place] [address] 6 [place] [address] Social History Tobacco Use Types Packs/Day Years Used Date Smoking Tobacco: Every Day Smokeless Tobacco: Never Comments:Pt not interested i n smoking cessation program Sex and Gender Information Value Date Recorded Sex Assigned at Not on file Legal Sex Male 10:48 AM SPEECH SCIENTIST Gender Identity Not on file Sexual [...] documented as of this encounter Care Teams Illusionist Relationship Specialty Start Date End Date Kirt Lindsay DO PCP - General Internal Medicine 02/02/21 Josué Del Valle MD PhD Medical Oncologist/Geospatial Extractor Analysis Medical Oncology 08/26/19 documented as of this encounter
--- OUTSIDE RECORDS SUMMARY | 2024-11-22 13:03 | XMS_ITS | Encounter Summary ---
Author Organization [facility] Address [address] [place] [address] Phone Care Team Providers Care Trust And Estates Attorney Name Role Phone Josué Del Valle MD PhD Unavailable [phone] Kirt Lindsay DO Primary Care Provider [phone] Encounter Details Date Type Department Care Team (Late st Contact Info) Description 02/02/2021 Telephone [facility] Oncology [address] [facility] Advanced Medicine 7th [place] [address] [place] [address] Jordan Meyers RN [address] [place] [id number] Social History Tobacco Use Types Packs/Day Years Used Date Smoking Tobacco: Every Day Smokeless Tobacco: Never Comments:Pt not interested i n smoking cessation program Sex and Gender Information Value Date Recorded Sex Assigned at Not on file Legal Sex Male 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
--- OUTSIDE RECORDS SUMMARY | 2024-11-22 13:03 | XMS_ITS | Encounter Summary ---
Author Organization [facility] Address [address] [place] [address] Phone Care Team Providers Care Assurance Sourcing Manager Name Role Phone Josué Del Valle MD PhD Unavailable Halie Khan MD Primary Care Provider [phone] Encounter Details Date Type Department Care Team (Late st Contact Info) Description 12/20/2020 Orders Only [facility] Oncology [address] [facility] 7th [place] [address] [place] [id number] Eneida Gibson MD [address] [place] [address] Type 2 diabetes mellitus with hyperosmolarity without coma, with long-term current use of insulin ([facility]) (Primary Dx) Social History Tobacco Use Types Packs/Day Years Used Date Smoking Tobacco: Every Day Smokeless Tobacco: Never Comments:Pt not interested i n smoking cessation program Sex and Gender Information Value Date Recorded Sex Assigned at Not on file Legal Sex Male 10:48 AM CHAIN OFFBEARER Gender Identity Not on file Sexual Orientation [...] documented as of this encounter Care Teams Assurance Sourcing Manager Relationship Specialty Start Date End Date Halie Khan MD [address] [facility] [address] [facility] [address] [place] [id number] PCP - General Critical Care Med 11/23/20 02/01/21 Josué Del Valle MD PhD Medical Oncologist/Wire Mill Operator Medical Oncology 08/26/19 documented as of this encounter
--- OUTSIDE RECORDS SUMMARY | 2024-11-22 13:03 | XMS_ITS | Encounter Summary ---
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) Procedures ONCBCN ARM DRAW APPT ONC LAB ONLY [facility] Oncology [address] [facility] 7th [place] [address] [place] [address] Phone: tel: Rock Garcia MD [address] [place] [address] Phone: tel: fax: Referral ID Status Reason Start Date Expiration Date V isits Requested Visits Authorized [id number] Closed Specialty Services Required 11/22/2020 05/21/2021 12 12 Encounter Details Date Type Department Care Team (Late st Contact Info) Description 02/03/2021 9:30 AM CDT Lab [facility] Oncology [address] [facility] 7th [place] [address] [place] [address] 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); Wppzl-ipkrkm-gzul disease (CMS/HCC); Vitamin D deficiency; Osteopenia, unspecified [...] on file 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 Gender Identity Not on file Sexual Orientation Not on file documented as of this encounter Plan of Treatment Not on file documented as of this encounter Procedures Procedure Name Priority Date/Time Associated Diagnosis Comments DIFFERENTIAL AUTO Routine 02/03/2021 12: 04 PM CDT 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) Bjykz-aodzux-exnb disease (CMS/HCC) CBC WITH AUTO DIFFERENTIAL Routine 02/03/2021 12:04 PM CDT 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) Qommj-iauuyb-znrj disease (CMS/HCC) TACROLIMUS LEVEL, RANDOM Routine 02/03/2021 12:04 PM CDT 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) Latde-xepfsk-ayml disease (CMS/HCC) VITAMIN D 25 HYDROXY Routine 02/03/2021 12:04 PM CDT 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) Mltns-xvlrig-ohux disease (CMS/HCC) TYPE AND SCREEN Routine 02/03/2021 12:04 PM CDT 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) Lrkui-uenlxa-zpag disease (CMS/HCC) LACTATE DEHYDROGENASE Routine 02/03/2021 12:04 PM CDT 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) Efott-zuanzs-quml disease (CMS/HCC) HEMOGLOBIN A1C Routine 02/03/2021 12:04 PM CDT Vitamin D deficiency Osteopenia, unspecified location Type 2 diabetes mellitus with hyperosmolarity without coma, with long-term current use of insulin (CMS/HCC) COMPREHENSIVE METABOLIC PANEL Routine 02/03/2021 12:04 PM CDT 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) Ifqwx-dwffih-ahvn disease (CMS/HCC) CYTOMEGALOVIRUS (CMV) DNA, QUANT GEN LAB Routine 02/03/2021 11:47 AM CDT 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) Ltsdc-txpevc-fczg disease (CMS/HCC) documented in this encounter Results * (ABNORMAL) Differential, auto (02/03/2021 12:04 PM CDT) Neutrophil abs 3.4 1.8 - 6.6 K/cumm [facility] Comment:Testing performed by : [facility], [address] [place] [phone] Lymphocyte abs 4.2(H) 1.2 - 3.3 K/cumm [facility] Comment:Testing performed by : [facility], [address] [place] [phone] Monocyte abs 0.8 0.2 - 1.2 K/cumm [facility] Comment:Testing performed by : [facility], [address] [place] [phone] Eosinophil abs 0.5 0.0 - 0.5 K/cumm [facility] Comment:Testing performed by : [facility], [address] [place] [phone] Basophil abs 0.1 0.0 - 0.2 K/cumm [facility] Comment:Testing performed by : [facility], [address] [place] [phone] Neutrophil pct 38.1 % [facility] Comment: Interpretive Data Percent cell count reference ranges are not reported, since discordance with absolute values may lead to misinterpretation of CBC data. Current Interpretive Data was last revised on 2018. Testing performed by: [facility], [address] [place] [phone] Lymphocyte pct 46.5 % [facility] Comment: Interpretive Data Percent cell count reference ranges are not reported, since discordance with absolute values may lead to misinterpretation of CBC data. Current Interpretive Data was last revised on 2018. Testing performed by: [facility], [address] [place] [phone] Monocyte pct 9.0 % [facility] Comment:Testing performed by : [facility], [address] [place] [phone] Eosinophil pct 5.6 % [facility] Comment:Testing performed by : [facility], [address] [place] [phone] Basophil pct 0.8 % [facility] Comment:Testing performed by : [facility], [address] [place] [phone] Blood specimen (specimen) 02/03/2021 12:04 PM CDT 02/03/2021 12:10 PM CDT us Narcisa Kilgore ROOF BOLTER LAB BLOOD ORDERABLES Pilar l Result [facility] Department of Laboratories [place], [place] [id number] * (ABNORMAL) CBC with auto differential (02/03/2021 12:04 PM CDT) WBC 9.0 3.8 - 9.8 K/cumm [facility] Comment:Testing performed by : [facility], [address] [place] [phone] Hgb 14.5 13.8 - 17.2 g/dL [facility] Comment:Testing performed by : [facility], [address] [place] [phone] Hct 43.0 40.7 - 50.3 % [facility] Comment:Testing performed by : [address] [phone] Plt 322 140 - 440 K/cumm [facility] Comment:Testing performed by : [facility], [address] [place] [phone] MPV 8.4 6.8 - 10.4 fL [facility] Comment:Testing performed by : [facility], [address] [place], [place] [phone] RBC 4.14(L) 4.50 - 5.70 M/cumm [facility] Comment:Testing performed by : [facility], [address] [place], [place] [phone] MCV 103.8(H) 80.0 - 97.6 fL [facility] Comment:Testing performed by : [facility], [address] [place] [phone] MCH 35.1(H) 26.7 - 33.7 pg [facility] Comment:Testing performed by : [address] [phone] MCHC 33.9 32.7 - 35.5 g/dL [facility] Comment:Testing performed by : [facility], [address] [place] [phone] RDW CV 13.7 11.8 - 14.6 % [facility] Comment:Testing performed by : [address] [phone] NRBC abs 0.02(H) 0.00 - 0.01 K/cumm [facility] Comment:Testing performed by : [address] [phone] Blood specimen (specimen) 02/03/2021 12:04 PM CDT 02/03/2021 12:10 PM CDT us Narcisa Kilgore ROOF BOLTER LAB BLOOD ORDERABLES Pilar armas Result [facility]MA S[facility] Department [place] [address] * (ABNORMAL) Comprehensive metabolic panel (02/03/2021 12:04 PM CDT) Sodium 141 135 - 145 mmol/L [facility] Comment:Testing performed by : [facility], [address] [place] [phone] Potassium, pl 4.3 3.3 - 4.9 mmol/L [facility] Comment:Testing performed by : [facility], [address] [place] [phone] Chloride 102 97 - 110 mmol/L [facility] Comment:Testing performed by : [facility], [address] [place] [phone] CO2 35(H) 22 - 32 mmol/L [facility] Comment:Testing performed by : [facility], [address] [place] [phone] Anion gap 4 2 - 15 mmol/L [facility] Comment:Testing performed by : [facility], [address] [place] [phone] BUN 12 8 - 25 mg/dL [facility] Comment:Testing performed by : [facility], [address] [place] [phone] Creatinine 0.81 0.80 - 1.30 mg/dL [facility] Comment:Testing performed by : [facility], [address] [place] [phone] Glucose 172 70 - 199 mg/dL CERNER [...] was last revised 2017. Testing performed by: [facility], [address] [place] [phone] Calcium 10.2 8.5 - 10.3 mg/dL [facility] Comment:Testing performed by : [facility], [address] [place] [phone] Bilirubin, total 0.2 0.1 - 1.2 mg/dL [facility] Comment:Testing performed by : [facility], [address] [place] [phone] Protein, pl 7.9 6.5 - 8.5 g/dL [facility] Comment:Testing performed by : [facility], [address] [place] [phone] Albumin 4.6 3.5 - 5.0 g/dL [facility] Comment:Testing performed by : [facility], [address] [place] [phone] Alk phos 176(H) 40 - 130 Units/L [facility] Comment:Testing performed by : [facility], [address] [place] [phone] ALT 26 7 - 55 Units/L [facility] Comment:Testing performed by : [facility], [address] [place] [phone] AST 22 10 - 50 Units/L [facility] Comment:Testing performed by : [facility], [address] [place] [phone] Blood specimen (specimen) 02/03/2021 12:04 PM CDT 02/03/2021 12:10 PM CDT Narcisa Kilgore ROOF BOLTER LAB BLOOD ORDERABLES Pilar l Result Performing Organization Address [facility]/ZIP Co de Phone Number [facility] Department [place] [address] * Lactate dehydrogenase (LD) (02/03/2021 12:04 PM CDT) Lactate dehydrogenase (LDH) 199 100 - 250 Units/L [facility] Comment:Testing performed by : [facility], [address] [place] [phone] Blood specimen (specimen) 02/03/2021 12:04 PM CDT 02/03/2021 12:10 PM CDT Narcisa Kilgore ROOF BOLTER LAB BLOOD ORDERABLES Pilar l Result Performing Organization Address City/[facility]/ZIP Co de Phone Number [facility] Department [place] [address] * Type and screen (02/03/2021 12:04 PM CDT) Ursula, indirect Negative [facility] ABO Rh A Positive [facility] Blood specimen (specimen) 02/03/2021 12:04 PM CDT 02/03/2021 12:24 PM CDT Narrative [facility] - 02/03/2021 1:23 PM CDT Has the patient had Daratumumab or Isatuximab in the past 6 months?->Unknown Narcisa Kilgore NP LAB BLOOD BANK TEST ORDER SUBHA Final Result Performing Organization Address [facility] Co de Phone Number [facility] [place] [address] * Tacrolimus level random (02/03/2021 12:04 PM CDT) Pathologist [facility] Tacrolimus random 1.9 ng/mL [facility] Comment: Interpretive Data Testing performed by liquid chromatography-tandem mass spectrometry. ??Therapeutic concentrations vary depending on type of transplanted organ and time elapsed since transplant. ??Typical trough concentrations range from 5-15 ng/mL. ??This test was developed and its performance characteristics determined by the [facility] consistent with CLIA requirements. ??This test has not been cleared or approved by the [place] Food and Drug administration. ??Current interpretive data last reviewed 2020. Blood specimen (specimen) 02/03/2021 12:04 PM CDT 02/03/2021 12:23 PM CDT Narcisa Kilgore NP LAB BLOOD ORDERABLES Pilar l Result Performing Organization Address [facility] Co de Phone Number [facility] Department [place] [address] * (ABNORMAL) Vitamin D 25 hydroxy (02/03/2021 12:04 PM CDT) [facility] Vitamin D 25-OH 23(L) 30 - 80 ng/mL [facility] Blood specimen (specimen) 02/03/2021 12:04 PM CDT 02/03/2021 12:22 PM CDT Narcisa Kilgore NP LAB BLOOD ORDERABLES Pilar l Result Performing Organization Address [facility] de Phone Number [facility] Department [place] [address] * (ABNORMAL) Hemoglobin A1c (02/03/2021 12:04 PM CDT) [facility] Hgb A1C 7.8(H) 4.0 - 5.6 % [facility] Estimated Average Glucose 177 mg/dL [facility] Comment: The ADA recommends reporting an estimated Average Glucose (eAG) with all Hemoglobin A1c results using the equation derived from a study of 507 normal and diabetic adults. ??Minority populations were underrepresented and children were not included. ?? (Diabetes Care 31:9892-0463, 2008). ??The eAG is not equivalent to a fasting glucose. Blood specimen (specimen) 02/03/2021 12:04 PM CDT 02/03/2021 12:23 PM CDT Eneida Gibson MD LAB BLOOD ORDERABLES Final Resul t Performing Organization Address [facility] de Phone Number [facility] Department [place] [address] * Cytomegalovirus (CMV) DNA PCR, quantitative Blood (02/03/2021 11:47 AM CDT) [facility] CMV DNA Not Detected [facility] Comment: Interpretive Data: The quantifiable range of this assay is 137 IUnits/mL to 9,100,000 IUnits/mL (2.14 log IUnits/mL to 6.96 log IUnits/mL). Testing was performed by the [employer] Ampli[employer]/MICHEL TaqMan CMV Test ([employer] Testing performed at [facility] Current interpretive data was last revised on 17. 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
--- OUTSIDE RECORDS SUMMARY | 2024-11-22 13:03 | XMS_ITS | Encounter Summary ---
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) Aduts-jhccya-vmos disease (HCC) H/O allogeneic bone marrow transplant ([facility]) Narcisa Kilgore NP Phone: tel: fax: Nicko Gibson MD [address] [place] [address] Phone: tel: Referral ID Status Reason Start Date Expiration Date V isits Requested Visits Authorized [id number] Closed Specialty Services Required 11/22/2020 05/21/2021 12 12 Encounter Details Date Type Department Care Team (Late st Contact Info) Description 11/23/2020 9:00 AM PRODUCTION SPECIALIST Office Visit [facility] Bone Marrow Transplant [address] [facility] Advanced Medicine 7th [place], [place] [address] Narcisa Kilgore NP [address] DIV BONE MARROW TRANSPLANT, [address] [place] [address] AML (acute myeloid leukemia) in remission ([facility]/HCC) (Primary Dx); Fzaoi-debkhy-zbmu disease ([facility]/HCC); H/O allogeneic bone marrow transplant ([facility]/HCC); Cough; Type 2 diabetes mellitus with hyperosmolarity without coma, with long-term current use of insulin ([facility]/HCC) Social History Tobacco Use Types Packs/Day Years Used Date Smoking Tobacco: Every Day Smokeless Tobacco: Never Tobacco Cessation:Ready to Q uit: No; Counseling Given: Yes Comments:Pt not interested in smoking cessation program Sex and Gender Information Value Date Recorded Sex Assigned at Not on file Legal Sex Male 10:48 AM PRODUCTION SPECIALIST Gender Identity Not on file Sexual Orientation Not on file documented as of this encounter Last Filed Vital Signs Vital Sign Reading Time Taken Comments Blood Pressure 158/88 11/23/2020 9:34 AM PRODUCTION SPECIALIST 2nd BP Pulse 64 11/23/2020 9:26 AM PRODUCTION SPECIALIST Temperature 36.7 ??C (98.1 ??F) 11/23/2020 9:26 AM CS T Respiratory Rate 18 11/23/2020 9:26 AM PRODUCTION SPECIALIST Oxygen Saturation 95% 11/23/2020 9:26 AM PRODUCTION SPECIALIST Inhaled Oxygen Concentration - - Weight 70.2 kg (154 lb 12.8 oz) 11/23/2020 9:26 AM PRODUCTION SPECIALIST Height 178.5 cm (5' 10.28 ) 11/23/2020 9:[address] Body Mass Index 22.04 11/23/2020 9:26 AM PRODUCTION SPECIALIST documented in this encounter Ordered Prescriptions Prescription [...] 11/23/2020 1 azithromycin (ZITHROMAX) 250 mg tabletIndications:Cou gh,Pwszi-ajppcm-yuqz disease (HCC) Take 1 tablet (250 mg total) by mouth daily 2 tablets day 1, then 1 tablet daily x 4. 6 tablet 11/23/2020 1 documented in this encounter Progress Notes * Narcisa Kilgore, ARMEN - 11/23/2020 9:00 AM CST Images from the original note were not included. [facility] DEPARTMENT OF MEDICINE - SECTION OF BMT & LEUKEMIA [address] [place] [address]- PHONE: FAX: PATIENT NAME: BRI LUNDY : 1965 ROSY: 11/23/2020 Patient has a history of AML. 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 TREATMENT HISTORY: 1. Induction with 7+3 and HiDAC consolidation x3. 2. Decitabine maintenance on the [facility] [address] protocol. 3. Relapsed disease, status post [facility]. 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 2. Chronic cgaix-yolpma-ymoe disease. He Is off Jakafi stopped on his own. He completed cycle 1 and2. January 24 he didn't sisal picker drug and MMF 1 g b.i.d., [...] Valle MD PhD at 11/24/2020 8:48 AM PRODUCTION SPECIALIST UCTION SPECIALIST UCTION SPECIALIST documented in this encounter Nursing Notes * Kari Mcbride NP - 11/23/2020 9:00 AM CST AML s/p fully matched, related ALLO SCT from his sister, Bu/Cy, 11/09/2009, now day +4032 03/2018 - EAP Jakafi HRPO [phone], 5 mg BID ---pt stopped taking after he picked up Cycle 3 (so stopped approximately 01/2020)--OFF STUDY NOW GVHD: MMF 1gm BID, tac 0.5mg every other day, pred 10mg Daily Treatment hx: 1. Induction with 7+3 and HiDAC consolidation x3. 2. Decitabine maintenance on the [facility] 72892 protocol. 3. 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 [...] day - RTC 11/23/21 with Cameron Kilgore UCTION SPECIALIST documented in this encounter Plan of Treatment Scheduled Referrals Name Type Priority Associated Diagnoses Order Schedule Ambulatory referral to Oncology Outpatient Referral Routine 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) Ufriz-ocbqzj-yryh disease (CMS/HCC) H/O allogeneic bone marrow transplant (CMS/HCC) Expected: 12/07/2020 (Approximate), Expires: 11/23/2021 documented as of this encounter Results * (ABNORMAL) Vitamin D 25 hydroxy (02/03/2021 12:04 PM CDT) Vitamin D 25-OH 23(L) 30 - 80 ng/mL [facility] Blood specimen (specimen) 02/03/2021 12:04 PM CDT 02/03/2021 12:22 PM CDT Narcisa Kilgore NP LAB BLOOD ORDERABLES Pilar l Result Performing Organization Address [facility] Co de Phone Number [facility] [place] [address] * Tacrolimus level random (02/03/2021 12:04 PM CDT) Pathologist [facility] Tacrolimus random 1.9 ng/mL [facility] Comment: Interpretive Data Testing performed by liquid chromatography-tandem mass spectrometry. ??Therapeutic concentrations vary depending on type of transplanted organ and time elapsed since transplant. ??Typical trough concentrations range from 5-15 ng/mL. ??This test was developed and its performance characteristics determined by the [facility] consistent with CLIA requirements. ??This test has not been cleared or approved by the [place] Food and Drug administration. ??Current interpretive data last reviewed 2020. Blood specimen (specimen) 02/03/2021 12:04 PM CDT 02/03/2021 12:23 PM CDT Narcisa Kilgore [employer]OR[employer] LAB BLOOD ORDERABLES Pilar l Result Performing Organization Address [facility] Co de Phone Number [facility] Department [place] [address] * Type and screen (02/03/2021 12:04 PM CDT) Ursula, indirect Negative [facility] ABO Rh A Positive [facility] Blood specimen (specimen) 02/03/2021 12:04 PM CDT 02/03/2021 12:24 PM CDT Narrative [facility] - 02/03/2021 1:23 PM CDT Has the patient had Daratumumab or Isatuximab in the past 6 months?->Unknown Narcisa Kilgore NP LAB BLOOD BANK TEST ORDER SUBHA Final Result Performing Organization Address [facility] de Phone Number [facility] [place] [address] * Lactate dehydrogenase (LD) (02/03/2021 12:04 PM CDT) [facility] Lactate dehydrogenase (LDH) 199 100 - 250 Units/L [facility] Comment:Testing performed by : [facility], [address] [place] [phone] Blood specimen (specimen) 02/03/2021 12:04 PM CDT 02/03/2021 12:10 PM CDT Narcisa Kilgore [employer] LAB BLOOD ORDERABLES Pilar l Result Performing Organization Address [facility] Co de Phone Number [facility] [place] [address] * (ABNORMAL) Comprehensive metabolic panel (02/03/2021 12:04 PM CDT) [facility] Sodium 141 135 - 145 mmol/L [facility] Comment:Testing performed by : [facility], [address] [place] [phone] Potassium, pl 4.3 3.3 - 4.9 mmol/L [facility] Comment:Testing performed by : [facility], [address] [place] [phone] Chloride 102 97 - 110 mmol/L [facility] Comment:Testing performed by : [facility], [address] [place] [phone] CO2 35(H) 22 - 32 mmol/L [facility] Comment:Testing performed by : [facility], [address] [place] [phone] Anion gap 4 2 - 15 mmol/L [facility] Comment:Testing performed by : [facility], [address] [place] [phone] BUN 12 8 - 25 mg/dL [facility] Comment:Testing performed by : [facility], [address] [place] [phone] Creatinine 0.81 0.80 - 1.30 mg/dL [facility] Comment:Testing performed by : [facility], [address] [place] [phone] Glucose 172 70 - 199 mg/dL [facility] [...] was last revised 2017. Testing performed by: [address] [phone] Calcium 10.2 8.5 - 10.3 mg/dL [facility] Comment:Testing performed by : [facility], [address] [place] [phone] Bilirubin, total 0.2 0.1 - 1.2 mg/dL [facility] Comment:Testing performed by : [address] [phone] Protein, pl 7.9 6.5 - 8.5 g/dL [facility] Comment:Testing performed by : [address] [phone] Albumin 4.6 3.5 - 5.0 g/dL [facility] Comment:Testing performed by : [address] [phone] Alk phos 176(H) 40 - 130 Units/L [facility] Comment:Testing performed by : [place] [phone] ALT 26 7 - 55 Units/L [facility] Comment:Testing performed by : [address] [phone] AST 22 10 - 50 Units/L [facility] Comment:Testing performed by : [facility] [phone] Blood specimen (specimen) 02/03/2021 12:04 PM CDT 02/03/2021 12:10 PM CDT us Narcisa Kilgore [employer] LAB BLOOD ORDERABLES Pilar l Result [facility] Department [place] [address] * (ABNORMAL) CBC with auto differential (02/03/2021 12:04 PM CDT) WBC 9.0 3.8 - 9.8 K/cumm [facility] Comment:Testing performed by : [facility], [address] [place] [phone] Hgb 14.5 13.8 - 17.2 g/dL [facility] Comment:Testing performed by : [facility], [address] [place] [phone] Hct 43.0 40.7 - 50.3 % [facility] Comment:Testing performed by : [address] [phone] Plt 322 140 - 440 K/cumm [facility] Comment:Testing performed by : [address] [phone] MPV 8.4 6.8 - 10.4 fL [facility] Comment:Testing performed by : [address] [phone] RBC 4.14(L) 4.50 - 5.70 M/cumm [facility] Comment:Testing performed by : [address] [phone] MCV 103.8(H) 80.0 - 97.6 fL [facility] Comment:Testing performed by : [address] [phone] MCH 35.1(H) 26.7 - 33.7 pg [facility] Comment:Testing performed by : [address] [address] MCHC 33.9 32.7 - 35.5 g/dL [facility] Comment:Testing performed by : [facility], [address] [place] [phone] RDW CV 13.7 11.8 - 14.6 % [facility] Comment:Testing performed by : [facility], [address] [place] [phone] NRBC abs 0.02(H) 0.00 - 0.01 K/cumm [facility] Comment:Testing performed by : [facility], [address] [place] [phone] Blood specimen (specimen) 02/03/2021 12:04 PM CDT 02/03/2021 12:10 PM CDT Narcisa Kilgore [employer] LAB BLOOD ORDERABLES Pilar l Result Performing Organization Address [facility] de Phone Number [facility] [place] [address] * Cytomegalovirus (CMV) DNA PCR, quantitative Blood (02/03/2021 11:47 AM CDT) [facility] CMV DNA Not Detected [facility] Comment: Interpretive Data: The quantifiable range of this assay is 137 IUnits/mL to 9,100,000 IUnits/mL (2.14 log IUnits/mL to 6.96 log IUnits/mL). Testing was performed by the [employer] Ampli[employer]/MICHEL TaqMan CMV Test ([employer] Testing performed at [facility] Current interpretive data was last revised on 17. Blood specimen (specimen) 02/03/2021 11:47 AM CDT 02/03/2021 2:18 PM CDT Narcisa Kilgore NP LAB MICROBIOLOGY - GENERA L ORDERABLES Final Result Performing Organization Address [facility] Co de Phone Number [facility] [place] [address] * (ABNORMAL) Hemoglobin A1c (11/23/2020 9:14 AM PRODUCTION SPECIALIST) Hgb A1C 12.1(H) 4.0 - 5.6 % [facility] Estimated Average Glucose 301 mg/dL [facility] Comment: The ADA recommends reporting an estimated Average Glucose (eAG) with all Hemoglobin A1c results using the equation derived from a study of 507 normal and diabetic adults. ??Minority populations were underrepresented and children were not included. ?? (Diabetes Care 31:9319-7961, 2008). ??The eAG is not equivalent to a fasting glucose. Blood specimen (specimen) 11/23/2020 9:14 AM PRODUCTION SPECIALIST 11/23/2020 3:16 PM PRODUCTION SPECIALIST Narcisa Kilgore NP LAB BLOOD ORDERABLES Pilar armas Result Performing Organization Address City/State/[facility] Co de Phone Number [facility] Department [place] [address] * (ABNORMAL) Lipid panel (11/23/2020 9:14 AM PRODUCTION SPECIALIST) Cholesterol 190 30 - 199 mg/dL [facility] [...] revised on 2018. HDL 38(L) >=40 mg/dL [facility] Comment: Interpretive Data Ages < or = [...] 2018. LDL, calculated 107 <=129 mg/dL [facility] Comment: Interpretive Data Ages < [...] DENT Blood specimen (specimen) 11/23/2020 9:14 AM PRODUCTION SPECIALIST 11/23/2020 11:45 AM PRODUCTION SPECIALIST Narcisa Kilgore NP LAB BLOOD ORDERABLES Pilar l Result [facility] Department [place] [address] * (ABNORMAL) T-helper cells (CD4) count (11/23/2020 9:14 AM PRODUCTION SPECIALIST) CD4 pct 41 31 - 64 % [facility] Comment:Repeated and verifie d. CD4 Absolute 1,796(H) 365 - 1,294 cells/mcL [facility] Comment:Repeated and verifie d. 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) Puhjt-wcuewq-nhsu disease (HCC) Vitamin D deficiency Osteopenia, unspecified location Type 2 diabetes mellitus with hyperosmolarity without coma, with long-term current use of insulin (HCC) documented in this encounter Discontinued Medications Medication Sig Discontinue Reason Start Date End Da te azithromycin (ZITHROMAX) 250 mg tabletIndications:Cough,Gr msr-egpbdh-fvmq disease (HCC) Take 1 tablet (250 mg [...] per tabletIndications: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),Bhffk-kqdnlc-jikf disease (HCC),H/O allogeneic bone marrow transplant (HCC) Take 1 tablet by mouth every 6 (six) hours as needed 10/17/2019 11/23/2020 [facility] ruxolitinib (2018-05-175/INCB [id number]) 5 mg tabletIndications:Graft-ve rsus-host disease (HCC) Take [...] mg tabletIndications: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
--- OUTSIDE RECORDS SUMMARY | 2024-11-22 13:03 | XMS_ITS | Encounter Summary ---
Author Organization [facility] Address [address] [facility] [address] [place] [address] Phone Care Team Providers Care Cheese Cook Name Role Phone Josué Del Valle MD PhD Unavailable [phone] Kirt Lindsay DO Primary Care Provider [phone] Reason for Referral * Diagnostic Imaging (Routine) - Closed Specialty Diagnoses / Procedures Referred By Contac t Referred To Contact Diagnoses Type 2 diabetes mellitus with hyperosmolarity without coma, with long-term current use of insulin (HCC) Osteopenia, unspecified location Procedures Dexa Axial Skeleton Bone Density 1 or 2 Site Eneida Gibson MD Phone: tel: [facility] Referral ID Status Reason Start Date Expiration Date Visits Re quested Visits Authorized [id number] Closed 02/03/2021 03/05/2022 25 25 Reason for Visit * Consultation (Routine) - Closed Specialty Diagnoses / Procedures Referred By Contac t Referred To Contact Oncology Diagnoses AML (acute myeloid leukemia) in remission (HCC) Nistu-ihsdjq-uecj disease (HCC) H/O allogeneic bone marrow transplant (HCC) Narcisa Kilgore NP Phone: tel: fax: Eneida Gibson MD [address] [place] [address] Phone: tel: Referral ID Status Reason Start Date Expiration Date V isits Requested Visits Authorized [id number] Closed Specialty Services Required 11/22/2020 05/21/2021 12 12 Encounter Details Date Type Department Care Team (Latest Contact Info) Description 02/03/2021 10:20 AM CDT Office Visit [facility] [address] [facility] 7th [place] [address] [place] [address] Eneida Gibson MD [address] [place] [address] Type 2 diabetes mellitus with hyperosmolarity without coma, with long-term current use of insulin ([facility]) (Primary Dx); Osteopenia, unspecified location; Pure hypercholesterolemia; Vitamin D deficiency Social History Tobacco Use Types Packs/Day Years Used Date Smoking Tobacco: Every Day Smokeless Tobacco: Never Comments:Pt not interested i n smoking cessation program Sex and Gender Information Value Date Recorded Sex Assigned at Not on file Legal Sex Male 10:48 AM ELECTROTHERAPIST Gender Identity Not on file Sexual Orientation [...] long-term current use of insulin ([facility]) INJECT 15 UNITS NIGHTLY SUB-Q. 1 pen 5 02/03/2021 4 insulin lispro (HumaLOG, ADMELOG) 100 unit/mL pen for injectionIndications: Type 2 diabetes mellitus with hyperosmolarity without coma, with long-term current use of insulin ([facility]) INJECT 5-10 UNITS TID WITH [...] A1C 8.1(H) 4.0 - 5.6 % [facility] Estimated Average Glucose 186 mg/dL [facility] Comment: The ADA recommends reporting an estimated [...] t [facility] [place] [address] * Lipid panel (08/11/2021 10:51 AM CDT) Cholesterol 196 30 - 199 mg/dL [facility] Comment: Interpretive Data Ages < or = [...] on 2018. Triglycerides 88 <=149 mg/dL [facility] Comment: Interpretive Data Ages < or = [...] revised on 2018. HDL 52 >=40 mg/dL [facility] Comment: Interpretive Data Ages < or [...] 2018. LDL, calculated 126 <=129 mg/dL [facility] Comment: Interpretive Data Ages < or = [...] revised on 2018. Non-HDL Cholesterol 144 mg/dL [facility] Comment: Interpretive Data Ages < or [...] last revised on 2018. Chol/HDL ratio [address] [facility] Blood 08/11/2021 10:5 1 AM CDT 08/11/2021 11:09 AM CDT us Eneida Gibson MD LAB BLOOD ORDERABLES Final Resul t [facility] Department [place] [address] * (ABNORMAL) Vitamin D 25 hydroxy (08/11/2021 10:51 AM CDT) Vitamin D 25-OH 19(L) 30 - 80 ng/mL [facility] Blood 08/11/2021 10:5 1 AM CDT 08/11/2021 11:09 AM CDT us Eneida Gibson MD LAB BLOOD ORDERABLES Final Resul t [facility] Department [place] [address] * (ABNORMAL) Comprehensive metabolic panel (08/11/2021 10:51 AM CDT) Pathologist [facility] Sodium 143 135 - 145 mmol/L [facility] Comment:Testing performed by : [facility], [address] [place] [phone] Potassium, pl 4.3 3.3 - 4.9 mmol/L [facility] Comment:Testing performed by : [facility], [address] [place] [phone] Chloride 105 97 - 110 mmol/L [facility] Comment:Testing performed by : [facility], [address] [place] [phone] CO2 33(H) 22 - 32 mmol/L [facility] Comment:Testing performed by : [facility], [address] [place] [phone] Anion gap 5 2 - 15 mmol/L [facility] Comment:Testing performed by : [address] [phone] BUN 12 8 - 25 mg/dL [facility] Comment:Testing performed by : [facility], [address] [place] [phone] Creatinine 0.82 0.80 - 1.30 mg/dL [facility] Comment:Testing performed by : [address] [address] Glucose 222(H) 70 - 199 mg/dL [facility] Comment: Interpretive Data Fasting glucose >/= 126 [...] was last revised 2017. Testing performed by: [facility], [address] [place] [phone] Calcium 9.6 8.5 - 10.3 mg/dL [facility] Comment:Testing performed by : [facility], [address] [place] [phone] Bilirubin, total 0.3 0.1 - 1.2 mg/dL [facility] Comment:Testing performed by : [address] [address] Protein, pl 6.8 6.5 - 8.5 g/dL [facility] Comment:Testing performed by : [address] [address] Albumin 4.0 3.5 - 5.0 g/dL [facility] Comment:Testing performed by : [facility], [address] [place] [phone] Alk phos 142(H) 40 - 130 Units/L [facility] Comment:Testing performed by : [address] [address] ALT 17 7 - 55 Units/L [facility] Comment:Testing performed by : [address] [phone] AST 25 10 - 50 Units/L [facility] Comment:Testing performed by : [facility], [address] [place] [phone] Blood 08/11/2021 10:5 1 AM CDT 08/11/2021 10:54 AM CDT us Eneida Gibson MD LAB BLOOD ORDERABLES Final Resul t [facility] Department [place] [address] * Dexa Axial Skeleton Bone Density 1 or 2 Site (08/11/2021 10:36 AM CDT) Anatomical Region Laterality Modality Body N/A Radiographic Tiffany ging Narrative 08/16/2021 10:14 AM CDT Patient Name: Brady Jones Date of : 1965 Date of scan: 08/11/2021 Bone mineral density was performed on a HoloCardioVIP Discovery Densitometer. ?? Based on machine cross-calibration [...] and scan interpretation were performed by Justine aBnks M.D. ??who is certified by the International Society of Clinical Densitometry. [id number] Eneida Gibson MD IMG DXA PROCEDURES Final Result documented in this encounter Visit Diagnoses Diagnosis Type 2 diabetes mellitus with hyperosmolarity without coma, with long-term current use of insulin ([facility])- Primary Osteopenia, unspecified location Pure hypercholesterolemia Vitamin D deficiency Type 2 diabetes mellitus with hyperosmolarity without coma, with long-term current use of insulin (HCC) Osteopenia, unspecified location residential (current) use of 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 Long-term (current) use of 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 documented in this encounter Discontinued Medications Medication Sig Discontinue Reason Start Date End Da te insulin lispro (HumaLOG, ADMELOG) 100 unit/mL insulin penIndications:Type 2 diabetes mellitus with hyperosmolarity without coma, with long-term current use of insulin ([facility]) INJECT 20 UNITS TID WITH MEALS PLUS SLIDING SCALE. TDD OF 90 UNITS. 12/20/2020 02/03/2021 insulin glargine (LANTUS,BASAGLAR) 100 unit/mL (3 mL) insulin penIndications:Type 2 diabetes mellitus with hyperosmolarity without coma, with long-term current use of insulin ([facility]) INJECT 40 UNITS NIGHTLY SUB-Q. Reorder 12/13/2020 [...] documented as of this encounter Care Teams Cheese Cook Relationship Specialty Start Date End Date Kirt Lindsay DO PCP - General Internal Medicine 02/02/21 Josué Del Valle MD PhD Medical Oncologist/Ultrasound Spec Medical Oncology 08/26/19 documented as of this encounter
--- OUTSIDE RECORDS SUMMARY | 2024-11-22 13:03 | XMS_ITS | Encounter Summary ---
Author Organization [facility] Address [address] [place] [address] Phone Care Team Providers Care Lock Tender Name Role Phone Kirt Lindsay DO Primary Care Provider [phone] Josué Del Valle MD PhD Unavailable [phone] Encounter Details Date Type Department Care Team (Late st Contact Info) Description 11/22/2020 Orders Only [facility] Bone Marrow Transplant [address] [facility] Advanced Medicine 7th [address], [place] [address] Sylvia Frias RN H/O allogeneic bone marrow transplant (CMS/HCC) (Primary Dx) Social History Tobacco Use Types Packs/Day Years Used Date Smoking Tobacco: Every Day Smokeless Tobacco: Never Comments:Pt not interested i n smoking cessation program Sex and Gender Information Value Date Recorded Sex Assigned at Not on file Legal Sex Male 10:48 AM SLOPE RUNNER Gender Identity Not on file Sexual Orientation Not on file documented as of this encounter Plan of Treatment Not on file documented as of this encounter Results * IgG (11/23/2020 9:14 AM SLOPE RUNNER) Immunoglobulin G 1,048.0 700.0 - 1,600.0 mg/dL [facility] Blood specimen (specimen) 11/23/2020 9:14 AM SLOPE RUNNER 11/23/2020 9:51 AM SLOPE RUNNER Josué Del Valle MD PhD LAB BLOOD ORDERABLES Fin al Result [facility] Department [place] [address] documented in this encounter Visit Diagnoses Diagnosis H/O allogeneic bone marrow transplant (HCC)- Primary documented in this encounter 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
--- OUTSIDE RECORDS SUMMARY | 2024-11-22 13:04 | XMS_ITS | Encounter Summary ---
Author Organization [facility] Address [address] [place] [address] Phone Care Team Providers Care Crew Leader/Control Room Operator Name Role Phone Kirt Lindsay DO Primary Care Provider [phone] Josué Del Valle MD PhD Unavailable [phone] Encounter Details Date Type Department Care Team (Late st Contact Info) Description 01/29/2020 Orders Only [facility] Oncology [address] [facility] Advanced Medicine 7th [place] [address] [place] [address] Penny Valero RN Type 2 diabetes mellitus with hyperosmolarity without coma, with long-term current use of insulin ([facility]) (Primary Dx) Social History Tobacco Use Types Packs/Day Years Used Date Smoking Tobacco: Every Day Smokeless Tobacco: Never Comments:Pt not interested i n smoking cessation program Sex and Gender Information Value Date Recorded Sex Assigned at Not on file Legal Sex Male 10:48 AM CONSTRUCTION FOREMAN Gender Identity Not on file Sexual Orientation [...] documented as of this encounter Care Teams Crew Leader/Control Room Operator Relationship Specialty Start Date End Date Kirt Lindsay DO PCP - General 05/02/17 11/22/20 Josué Del Valle MD PhD Medical Oncologist/Aircraft Cleaning Supervisor Medical Oncology 08/26/19 documented as of this encounter
--- OUTSIDE RECORDS SUMMARY | 2024-11-22 13:04 | XMS_ITS | Encounter Summary ---
Author Organization [facility] Address [address] [facility] [address] [place] [address] Phone Care Team Providers Care Neurodiagnostic Tech Name Role Phone Kirt Lindsay DO Primary Care Provider [phone]- [phone] Josué Del Valle MD PhD Unavailable [phone] Reason for Visit * Reason Onset Date Comments [facility] 09/26/2020 Rx for Diabeti c supplies Encounter Details Date Type Department Care Team (Late st Contact Info) Description 09/26/2020 Telephone [facility] Endocrinology Metabolism and Lipid [address] [facility] Advanced Medicine 13th [place] [address] [place] [address] Delia Ngo CMA [facility] (Rx for Diabetic supplies) Social History Tobacco Use Types Packs/Day Years Used Date Smoking Tobacco: Every Day Smokeless Tobacco: Never Comments:Pt not interested i n smoking cessation program Sex and Gender Information Value Date Recorded Sex Assigned at Not on file Legal Sex Male 10:48 AM FINANCIAL INSTITUTION BRANCH MANAGER Gender Identity Not on file Sexual Orientation Not on file documented as of this encounter Miscellaneous Notes * Telephone Encounter - Delia Ngo RMA - 09/26/2020 4:00 PM FINANCIAL INSTITUTION BRANCH MANAGER [facility] Rx for diabetics supplies has been faxed to [phone]. NCIAL INSTITUTION BRANCH MANAGER documented in this encounter Plan of Treatment Not on file documented as of this encounter Visit Diagnoses Not on filedocumented in this encounter 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 Care Teams Neurodiagnostic Tech Relationship Specialty Start Date End Date Kirt Lindsay DO PCP - General 05/02/17 11/22/20 Josué Del Valle MD PhD Medical Oncologist/Compressor Service Technician Medical Oncology 08/26/19 documented as of this encounter
--- OUTSIDE RECORDS SUMMARY | 2024-11-22 13:04 | XMS_ITS | Encounter Summary ---
Author Organization [facility] Address [address] [place] [address] Phone Care Team Providers Care Project Landscape Architect Name Role Phone Kirt Lindsay DO Primary Care Provider [phone] Josué Del Valle MD PhD Unavailable [phone] Encounter Details Date Type Department Care Team (Late st Contact Info) Description 01/25/2020 Telephone [facility] Bone Marrow Transplant [address] [facility] Advanced Medicine 7th Floor, [place] [address] Mellisa Rubalcava RN Social History Tobacco Use Types Packs/Day Years Used Date Smoking Tobacco: Every Day Smokeless Tobacco: Never Comments:Pt not interested i n smoking cessation program Sex and Gender Information Value Date Recorded Sex Assigned at Not on file Legal Sex Male 10:48 AM MAINFRAME SOFTWARE DEVELOPER Gender Identity Not on file Sexual [...] as of this encounter Care Teams Project Landscape Architect Relationship Specialty Start Date End Date Kirt Lindsay DO PCP - General 05/02/17 11/22/20 Josué Del Valle MD PhD Medical Oncologist/Table Assembler Medical Oncology 08/26/19 documented as of this encounter
--- OUTSIDE RECORDS SUMMARY | 2024-11-22 13:04 | XMS_ITS | Encounter Summary ---
Author Organization [facility] Address [address] [place] [address] Phone Care Team Providers Care Environmental Education Specialist Name Role Phone Kirt Lindsay DO Primary Care Provider [phone] Josué Del Valle MD PhD Unavailable [phone] Encounter Details Date Type Department Care Team (Late st Contact Info) Description 09/07/2020 Telephone [facility] Bone Marrow Transplant [address] [facility] Advanced Medicine 7th Floor, [place] [address] Mellisa Rubalcava RN Social History Tobacco Use Types Packs/Day Years Used Date Smoking Tobacco: Every Day Smokeless Tobacco: Never Comments:Pt not interested i n smoking cessation program Sex and Gender Information Value Date Recorded Sex Assigned at Not on file Legal Sex Male 10:48 AM HOTEL BREAKFAST ATTENDANT Gender Identity Not on file Sexual [...] if we can get him back on [facility] Jakaf[employer] clinical trial he states he [...] documented as of this encounter Care Teams Environmental Education Specialist Relationship Specialty Start Date End Date Kirt Lindsay DO PCP - General 05/02/17 11/22/20 Josué Del Valle MD PhD Medical Oncologist/Button Facing Machine Operator Medical Oncology 08/26/19 documented as of this encounter
--- OUTSIDE RECORDS SUMMARY | 2024-11-22 13:04 | XMS_ITS | Encounter Summary ---
Author Organization [facility] Address [address] [place] [address] Phone Care Team Providers Care Decoration Checker Name Role Phone Kirt Lindsay DO Primary Care Provider [phone] Josué Del Valle MD PhD Unavailable [phone] Encounter Details Date Type Department Care Team (Late st Contact Info) Description 11/02/2020 Telephone [facility] Bone Marrow Transplant [address] [facility] Advanced Medicine 7th Floor, [place] [address] Sylvia Frias RN Social History Tobacco Use Types Packs/Day Years Used Date Smoking Tobacco: Every Day Smokeless Tobacco: Never Comments:Pt not interested i n smoking cessation program Sex and Gender Information Value Date Recorded Sex Assigned at Not on file Legal Sex Male 10:48 AM OUTBOUND SUPERVISOR Gender Identity Not on file Sexual [...] Sylvia Frias RN - 11/02/2020 9:35 AM OUTBOUND SUPERVISOR Patient left voicemail message with Narcisa Kilgore. [...] understanding and is agreeable with the plan. OUND SUPERVISOR documented in this encounter Plan of Treatment Not on file documented as of this encounter Visit Diagnoses Diagnosis Cough- Primary Ftsrn-xsjtju-qndn disease (HCC) documented in this encounter Discontinued [...] documented as of this encounter Care Teams Decoration Checker Relationship Specialty Start Date End Date Kirt Lindsay DO PCP - General 05/02/17 11/22/20 Josué Del Valle MD PhD Medical Oncologist/Project Finance Analyst Medical Oncology 08/26/19 documented as of this encounter
--- OUTSIDE RECORDS SUMMARY | 2024-11-22 13:04 | XMS_ITS | Encounter Summary ---
Author Organization [facility] Address [address] [place] [address] Phone Care Team Providers Care Power Sewing Machine Operator Name Role Phone Kirt Lindsay DO Primary Care Provider [phone] Josué Del Valle MD PhD Unavailable Encounter Details Date Type Department Care Team (Late st Contact Info) Description 04/04/2020 Telephone [facility] Bone Marrow Transplant [address] [facility] Advanced Medicine 7th Floor, [place] [address] Mellisa Rubalcava RN Social History Tobacco Use Types Packs/Day Years Used Date Smoking Tobacco: Every Day Smokeless Tobacco: Never Comments:Pt not interested i n smoking cessation program Sex and Gender Information Value Date Recorded Sex Assigned at Not on file Legal Sex Male 10:48 AM TREATING INSPECTOR Gender Identity Not on file Sexual [...] as of this encounter Care Teams Power Sewing Machine Operator Relationship Specialty Start Date End Date Kirt Lindsay DO PCP - General 05/02/17 11/22/20 Josué Del Valle MD PhD Medical Oncologist/Microwave Oven Assembler Medical Oncology 08/26/19 documented as of this encounter
--- OUTSIDE RECORDS SUMMARY | 2024-11-22 13:04 | XMS_ITS | Encounter Summary ---
Author Organization [facility] Address [address] [place] [address] Phone Care Team Providers Care Public Health Representative Name Role Phone Kirt Lindsay DO Primary Care Provider [phone] Josué Del Valle MD PhD Unavailable [phone] Reason for Visit * Reason Onset Date Comments Med Refill 10/19/2020 omega 3 (needs A ppt.) Encounter Details Date Type Department Care Team (Late st Contact Info) Description 10/19/2020 Telephone [facility] Endocrinology Metabolism and Lipid [address] [facility] Advanced Medicine 13th [place] [address] [place] [address] Mala Hernandez RN Med Refill (omega 3 (needs Appt.)) Social History Tobacco Use Types Packs/Day Years Used Date Smoking Tobacco: Every Day Smokeless Tobacco: Never Comments:Pt not interested i n smoking cessation program Sex and Gender Information Value Date Recorded Sex Assigned at Not on file Legal Sex Male 10:48 AM BOX STACKER Gender Identity Not on file Sexual Orientation Not on file documented as of this encounter Miscellaneous Notes * Telephone Encounter - Mala Hernandez RN - 10/19/2020 11:58 AM BOX STACKER 3 years since provider saw [phone]. Will send message to schedule appointment so his meds could bereilled then. STACKER documented in this encounter Plan of Treatment Not on file documented as of this encounter Visit Diagnoses Not on filedocumented in this encounter 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 Care Teams Public Health Representative Relationship Specialty Start Date End Date Kirt Lindsay DO PCP - General 05/02/17 11/22/20 Josué Del Valle MD PhD Medical Oncologist/Director Of Accounts Receivable Medical Oncology 08/26/19 documented as of this encounter
--- OUTSIDE RECORDS SUMMARY | 2024-11-22 13:04 | XMS_ITS | Encounter Summary ---
Author Organization [facility] Address [address] [place] [address] Phone Care Team Providers Care Brand Ambassadors Promotional Sales Name Role Phone Kirt Lindsay DO Primary Care Provider +1- [phone] Josué Del Valle MD PhD Unavailable [phone] Encounter Details Date Type Department Care Team (Late st Contact Info) Description 11/22/2020 Orders Only [facility] Bone Marrow Transplant [address] [facility] Advanced Medicine 7th Floor, [place] [address] Josué Del Valle MD PhD [address] DIV IM BONE MARROW TRANSPLANT, [address] [place], [place] [id number] 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); Paqrw-rtgygn-oltw disease (CMS/HCC); H/O allogeneic bone marrow transplant (CMS/HCC) Social History Tobacco Use Types Packs/Day Years Used Date Smoking Tobacco: Every Day Smokeless Tobacco: Never Comments:Pt not interested i n smoking cessation program Sex and Gender Information Value Date Recorded Sex Assigned at Not on file Legal Sex Male 10:48 AM MANAGER SCIENTIFIC Gender Identity Not on file Sexual Orientation Not on file documented as of this encounter Plan of Treatment Not on file documented as of this encounter Results * (ABNORMAL) Vitamin D 25 hydroxy (11/23/2020 9:14 AM MANAGER SCIENTIFIC) Pathologist [facility] Vitamin D 25-OH 15(L) 30 - 80 ng/mL [facility] Blood specimen (specimen) 11/23/2020 9:14 AM MANAGER SCIENTIFIC 11/23/2020 9:51 AM MANAGER SCIENTIFIC Josué Del Valle MD PhD LAB BLOOD ORDERABLES Fin al Result Performing Organization Address [facility] Co de Phone Number [facility] [place] [address] * Lactate dehydrogenase (LD) (11/23/2020 9:14 AM MANAGER SCIENTIFIC) [facility] Lactate dehydrogenase (LDH) 183 100 - 250 Units/L [facility] Comment:Testing performed by : [facility], [address] [place] [phone] Blood specimen (specimen) 11/23/2020 9:14 AM MANAGER SCIENTIFIC 11/23/2020 9:16 AM MANAGER SCIENTIFIC Josué Del Valle MD PhD LAB BLOOD ORDERABLES Fin al Result Performing Organization Address [facility] Co de Phone Number [facility] [place] [address] * (ABNORMAL) Comprehensive metabolic panel (11/23/2020 9:14 AM MANAGER SCIENTIFIC) [facility] Sodium 138 135 - 145 mmol/L [facility] Comment:Testing performed by : [facility], [address] [place] [phone] Potassium, pl 4.1 3.3 - 4.9 mmol/L [facility] Comment:Testing performed by : [facility], [address] [place] [phone] Chloride 100 97 - 110 mmol/L [facility] Comment:Testing performed by : [facility], [address] [place] [phone] CO2 32 22 - 32 mmol/L [facility] Comment:Testing performed by : [facility], [address] [place] [phone] Anion gap 6 2 - 15 mmol/L [facility] Comment:Testing performed by : [address] [address] BUN 10 8 - 25 mg/dL [facility] Comment:Testing performed by : [facility], [address] [place] [phone] Creatinine 0.83 0.80 - 1.30 mg/dL [facility] Comment:Testing performed by : [facility], [address] [place] [phone] Glucose 349(H) 70 - 199 mg/dL [facility] [...] last revised 2017. Testing performed by: [facility], [address] [place] [phone] Calcium 9.3 8.5 - 10.3 mg/dL [facility] Comment:Testing performed by : [facility], [address] [place] [phone] Bilirubin, total 0.4 0.1 - 1.2 mg/dL [facility] Comment:Testing performed by : [facility], [address] [place] [phone] Protein, pl 6.7 6.5 - 8.5 g/dL [facility] Comment:Testing performed by : [address] [address] Albumin 3.8 3.5 - 5.0 g/dL [facility] Comment:Testing performed by : [facility], [address] [place] [phone] Alk phos 175(H) 40 - 130 Units/L [facility] Comment:Testing performed by : [facility], [address] [place] [phone] ALT 30 7 - 55 Units/L [facility] Comment:Testing performed by : [facility], [address] [place] [phone] AST 37 10 - 50 Units/L [facility] Comment:Testing performed by : [facility], [address] [place] [phone] Blood specimen (specimen) 11/23/2020 9:14 AM MANAGER SCIENTIFIC 11/23/2020 9:16 AM MANAGER SCIENTIFIC Josué Del Valle MD PhD LAB BLOOD ORDERABLES Fin al Result Performing Organization Address City/State/[facility] Co de Phone Number [facility] [place] [address] * (ABNORMAL) CBC with auto differential (11/23/2020 9:14 AM MANAGER SCIENTIFIC) WBC 8.8 3.8 - 9.8 K/cumm [facility] Comment:Testing performed by : [facility], [address] [place] [phone] Hgb 13.1(L) 13.8 - 17.2 g/dL [facility] Comment:Testing performed by : [facility], [address] [place] [phone] Hct 38.5(L) 40.7 - 50.3 % [facility] Comment:Testing performed by : [facility], [address] [place] [phone] Plt 236 140 - 440 K/cumm [facility] Comment:Testing performed by : [address] [address] MPV 8.2 6.8 - 10.4 fL [facility] Comment:Testing performed by : [facility], [address] [place] [phone] RBC 3.84(L) 4.50 - 5.70 M/cumm [facility] Comment:Testing performed by : [facility], [address] [place] [address] MCV 100.2(H) 80.0 - 97.6 fL [facility] Comment:Testing performed by : [facility], [address] [place] [phone] MCH 34.1(H) 26.7 - 33.7 pg [facility] Comment:Testing performed by : [facility], [address] [place] [address] MCHC 34.0 32.7 - 35.5 g/dL [facility] Comment:Testing performed by : [facility], [address] [place] [phone] RDW CV 13.5 11.8 - 14.6 % [facility] Comment:Testing performed by : [facility], [address] [place] [phone] NRBC abs 0.00 0.00 - 0.01 K/cumm [facility] Comment:Testing performed by : [facility], [address] [place] [phone] Blood specimen (specimen) 11/23/2020 9:14 AM MANAGER SCIENTIFIC 11/23/2020 9:16 AM MANAGER SCIENTIFIC Josué Del Valle MD PhD LAB BLOOD ORDERABLES Fin al Result Performing Organization Address City/State/[facility] Co de Phone Number [facility] [place] [address] documented in this encounter Visit Diagnoses Diagnosis AML (acute myeloid leukemia) in remission (HCC)- Primary Jokux-cudkxg-bwjt disease (HCC) H/O allogeneic bone marrow transplant (HCC) documented in this encounter 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 Care Teams Brand Ambassadors Promotional Sales Relationship Specialty Start Date End Date Kirt Lindsay DO PCP - General 05/02/17 11/22/20 Josué Del Valle MD PhD Medical Oncologist/Manager Of Network Medical Oncology 08/26/19 documented as of this encounter
--- OUTSIDE RECORDS SUMMARY | 2024-11-22 13:04 | XMS_ITS | Encounter Summary ---
Author Organization [facility] Address [address] [place] [address] Phone Care Team Providers Care Buoy Tender Name Role Phone Kirt Lindsay DO Primary Care Provider +1- [phone] Josué Del Valle MD PhD Unavailable [phone] Encounter Details Date Type Department Care Team (Late st Contact Info) Description 08/08/2020 Telephone [facility] Ophthalmology [address] [facility] Health 6th [place] [address] Ravi Hughes MD [address] [place] [address] 6 [place] [address] Social History Tobacco Use Types Packs/Day Years Used Date Smoking Tobacco: Every Day Smokeless Tobacco: Never Comments:Pt not interested i n smoking cessation program Sex and Gender Information Value Date Recorded Sex Assigned at Not on file Legal Sex Male 10:48 AM ARTIFICIAL INSEMINATOR Gender Identity Not on file Sexual Orientation [...] documented as of this encounter Care Teams Buoy Tender Relationship Specialty Start Date End Date Kirt Lindsay DO PCP - General 05/02/17 11/22/20 Josué Del Valle MD PhD Medical Oncologist/Acute Care Occupational Therapist Medical Oncology 08/26/19 documented as of this encounter
--- OUTSIDE RECORDS SUMMARY | 2024-11-22 13:04 | XMS_ITS | Encounter Summary ---
Author Organization [facility] Address [address] [place] [address] Phone Care Team Providers Care Vice President Residential Solar Sales Name Role Phone Kirt Lindsay DO Primary Care Provider +1- [phone] Josué Del Valle MD PhD Unavailable [phone] Encounter Details Date Type Department Care Team (Late st Contact Info) Description 01/22/2020 Orders Only [facility] Oncology [address] [facility] Advanced Medicine 7th [place] [address] [place] [address] Eneida Gibson MD [address] [place] [address] Type 2 diabetes mellitus with hyperosmolarity without coma, with long-term current use of insulin ([facility]) (Primary Dx) Social History Tobacco Use Types Packs/Day Years Used Date Smoking Tobacco: Every Day Smokeless Tobacco: Never Comments:Pt not interested i n smoking cessation program Sex and Gender Information Value Date Recorded Sex Assigned at Not on file Legal Sex Male 10:48 AM CAR WIPER Gender Identity Not on file Sexual Orientation [...] documented as of this encounter Care Teams Vice President Residential Solar Sales Relationship Specialty Start Date End Date Kirt Lindsay DO PCP - General 05/02/17 11/22/20 Josué Del Valle MD PhD Medical Oncologist/Shaker Washer Medical Oncology 08/26/19 documented as of this encounter
--- OUTSIDE RECORDS SUMMARY | 2024-11-22 13:04 | XMS_ITS | Encounter Summary ---
Author Organization [facility] Address [address] [place] [address] Phone Care Team Providers Care Furniture Technician Name Role Phone Kirt Lindsay DO Primary Care Provider [phone]- [phone] Josué Del Valle MD PhD Unavailable [phone] Reason for Visit * Reason Onset Date Comments needs appointment 11/01/2020 [address]eds appt [facility] Dr. Niño or ASSISTANT GOLF COURSE SUPERINTENDENT Encounter Details Date Type Department Care Team (Late st Contact Info) Description 11/01/2020 Telephone [facility] Endocrinology Metabolism and Lipid [address] [facility] Advanced Medicine 13th [place] [address] [place] [address] Mala Hernandez RN needs appointment (Needs appt with Dr. Niño or ASSISTANT GOLF COURSE SUPERINTENDENT) Social History Tobacco Use Types Packs/Day Years Used Date Smoking Tobacco: Every Day Smokeless Tobacco: Never Comments:Pt not interested i n smoking cessation program Sex and Gender Information Value Date Recorded Sex Assigned at Not on file Legal Sex Male 10:48 AM METAL FURNITURE POLISHER Gender Identity Not on file Sexual Orientation Not on file documented as of this encounter Miscellaneous Notes * Telephone Encounter - Mala Hernandez RN - 11/01/2020 9:16 AM METAL FURNITURE POLISHER Sending message through my chart that not refilling lidocaine 5% ointment. He needs an appointment.Not seen in 5 years. L FURNITURE POLISHER documented in this encounter Plan of Treatment Not on file documented as of this encounter Visit Diagnoses Not on filedocumented in this encounter 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 Care Teams Furniture Technician Relationship Specialty Start Date End Date Kirt Lindsay DO PCP - General 05/02/17 11/22/20 Josué Del Valle MD PhD Medical Oncologist/Resource Development Director Medical Oncology 08/26/19 documented as of this encounter
--- OUTSIDE RECORDS SUMMARY | 2024-11-22 13:04 | XMS_ITS | Encounter Summary ---
Author Organization [facility] Address [address] [place] [address] Phone Care Team Providers Care Production Trainer Name Role Phone Kirt Lindsay DO Primary Care Provider [phone]- [phone] Josué Del Valle MD PhD Unavailable [phone] Encounter Details Date Type Department Care Team (Latest Contact Info) Description 01/25/2020 Research [facility] Pick-Up/CTRU Follow Up Specialist [facility] Oncology [facility] Advanced Medicine 7th [place] [address] [place] [address] Theodora Ruvalcaba, 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 Gender Identity Not on file Sexual Orientation Not on file documented as of this encounter Plan of Treatment Not on file documented as of this encounter Visit Diagnoses Diagnosis Uitwf-iljomb-fgkb disease (HCC)- Primary documented in this encounter Orders Medications Ordered That Girma ht Not Have Been Administered Count Last Ordered Date First Ordered Date INV-[facility] ruxolitinib (20 18-05-175/INCB [id number]) tablet 5 mg 1 01/25/2020 documented in this encounter 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 Care Teams Production Trainer Relationship Specialty Start Date End Date Kirt Lindsay DO PCP - General 05/02/17 11/22/20 Josué Del Valle MD PhD Medical Oncologist/Zoo Caretaker Medical Oncology 08/26/19 documented as of this encounter
--- OUTSIDE RECORDS SUMMARY | 2024-11-22 13:04 | XMS_ITS | Encounter Summary ---
Author Organization [facility] Address [address] [facility] [address] [place] [address] Phone Care Team Providers Care Library Clerical Assistant Name Role Phone Kirt Lindsay DO Primary Care Provider [phone]- [phone] Josué Del Valle MD PhD Unavailable [phone] Reason for Visit * Reason Onset Date Comments [facility] 09/25/2020 Script for insul in supplies Encounter Details Date Type Department Care Team (Late st Contact Info) Description 09/25/2020 Telephone [facility] Endocrinology Metabolism and Lipid [address] [facility] Advanced Medicine 13th [place] [address] [place] [address] Janiya Chilel CMA [facility] (Script for insulin supplies) Social History Tobacco Use Types Packs/Day Years Used Date Smoking Tobacco: Every Day Smokeless Tobacco: Never Comments:Pt not interested i n smoking cessation program Sex and Gender Information Value Date Recorded Sex Assigned at Not on file Legal Sex Male 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 ICATION SOFTWARE DEVELOPER documented in this encounter Plan of Treatment Not on file documented as of this encounter Visit Diagnoses Not on filedocumented in this encounter 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 Care Teams Library Clerical Assistant Relationship Specialty Start Date End Date Kirt Lindsay DO PCP - General 05/02/17 11/22/20 Josué Del Valle MD PhD Medical Oncologist/Caisson Worker Medical Oncology 08/26/19 documented as of this encounter
--- OUTSIDE RECORDS SUMMARY | 2024-11-22 13:04 | XMS_ITS | Encounter Summary ---
Author Organization [facility] Address [address] [place] [address] Phone Care Team Providers Care Steel Rigger Name Role Phone Kirt Lindsay DO Primary Care Provider [phone]- [phone] Josué Del Valle MD PhD Unavailable [phone] Reason for Visit * Reason Onset Date Comments new pt 11/02/2020 Encounter Details Date Type Department Care Team (Late st Contact Info) Description 11/02/2020 Telephone [facility] Ophthalmology [address] [place], [place] [id number] Ravi Hughes MD [address] [phone] new pt Social History Tobacco Use Types Packs/Day Years Used Date Smoking Tobacco: Every Day Smokeless Tobacco: Never Comments:Pt not interested i n smoking cessation program Sex and Gender Information Value Date Recorded Sex Assigned at Not on file Legal Sex Male 10:48 AM EMBROIDERY CUTTER Gender Identity Not on file Sexual [...] Dr. Ramos schedule for a cataract eval. OIDERY CUTTER * Telephone Encounter - Luz Munoz B.A. - 11/02/2020 1:36 PM EMBROIDERY CUTTER Thanks! OIDERY CUTTER * Telephone Encounter - Anjana Pizarro - 11/02/2020 1:22 PM CST Attempted to call pt to schedule first available new pt slot for cat eval. No answer so LVM for pt to call back and schedule. OIDERY CUTTER * Telephone Encounter - Luz Munoz B.A. - 11/02/2020 11:49 AM EMBROIDERY CUTTER He does. OIDERY CUTTER * Telephone Encounter - Anjana Pizarro - 11/02/2020 11:38 AM CST Please advise. Does Saul do cat sx?? OIDERY CUTTER * Telephone Encounter - Sonia Vega - [...] Host disease. Best contact number for pt [phone]. OIDERY CUTTER documented in this encounter Plan of Treatment Not on file documented as of this encounter Visit Diagnoses Not on filedocumented in this encounter 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 Care Teams Steel Rigger Relationship Specialty Start Date End Date Kirt Lindsay DO PCP - General 05/02/17 11/22/20 Josué Del Valle MD PhD Medical Oncologist/Python Architect Medical Oncology 08/26/19 documented as of this encounter
--- OUTSIDE RECORDS SUMMARY | 2024-11-22 13:04 | XMS_ITS | Encounter Summary ---
Author Organization [facility] Address [address] [place] [address] Phone Care Team Providers Care Wicker Worker Name Role Phone Kirt Lindsay DO Primary Care Provider [phone]- [phone] Josué Del Valle MD PhD Unavailable Encounter Details Date Type Department Care Team (Late st Contact Info) Description 06/30/2020 Orders Only [facility] Oncology [address] [facility] Advanced Medicine 7th [place] [address] [place] [address] Eneida Gibson MD [address] [place] [address] Type 2 diabetes mellitus (CMS/HCC) (Primary Dx) Social History Tobacco Use Types Packs/Day Years Used Date Smoking Tobacco: Every Day Smokeless Tobacco: Never Comments:Pt not interested i n smoking cessation program Sex and Gender Information Value Date Recorded Sex Assigned at Not on file Legal Sex Male 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
--- OUTSIDE RECORDS SUMMARY | 2024-11-22 13:04 | XMS_ITS | Encounter Summary ---
Author Organization [facility] Address [address] [place] [address] Phone Care Team Providers Care Manager Combination Name Role Phone Kirt Lindsay DO Primary Care Provider +1- [phone] Josué Del Valle MD PhD Unavailable [phone] Encounter Details Date Type Department Care Team (Late st Contact Info) Description 05/10/2020 Telephone [facility] Bone Marrow Transplant [address] [facility] Advanced Medicine 7th [place], [place] [address] Mellisa Rubalcava RN Social History Tobacco Use Types Packs/Day Years Used Date Smoking Tobacco: Every Day Smokeless Tobacco: Never Comments:Pt not interested i n smoking cessation program Sex and Gender Information Value Date Recorded Sex Assigned at Not on file Legal Sex Male 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
--- OUTSIDE RECORDS SUMMARY | 2024-11-22 13:05 | XMS_ITS | Encounter Summary ---
Author Organization [facility] Address [address] [place] [address] Phone Care Team Providers Care Registered Nurse Surgical Services Name Role Phone Kirt Lindsay DO Primary Care Provider +1- [phone] Josué Del Valle MD PhD Unavailable [phone] Encounter Details Date Type Department Care Team (Late st Contact Info) Description 01/18/2020 Orders Only [facility] Oncology [address] [facility] Advanced Medicine 7th [place] [address] [place] [address] Eneida Gibson MD [address] [place] [address] Type 2 diabetes mellitus with hyperosmolarity without coma, with long-term current use of insulin ([facility]) (Primary Dx) Social History Tobacco Use Types Packs/Day Years Used Date Smoking Tobacco: Every Day Smokeless Tobacco: Never Comments:Pt not interested i n smoking cessation program Sex and Gender Information Value Date Recorded Sex Assigned at Not on file Legal 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
--- OUTSIDE RECORDS SUMMARY | 2024-11-22 13:05 | XMS_ITS | Encounter Summary ---
Author Organization [facility] Address [address] [place] [address] Phone Care Team Providers Care Chief Design Branch Name Role Phone Kirt Lindsay DO Primary Care Provider [phone]- [phone] Josué Del Valle MD PhD Unavailable [phone] Encounter Details Date Type Department Care Team (Late st Contact Info) Description 12/28/2019 Orders Only [facility] Bone Marrow Transplant [address] [facility] Advanced Medicine 7th Floor, [place] [address] Silva Mortensen RMA H/O allogeneic bone marrow transplant (CMS/HCC) (Primary Dx) Social History Tobacco Use Types Packs/Day Years Used Date Smoking Tobacco: Every Day Smokeless Tobacco: Never Comments:Pt not interested i n smoking cessation program Sex and Gender Information Value Date Recorded Sex Assigned at Not on file Legal 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
--- OUTSIDE RECORDS SUMMARY | 2024-11-22 13:05 | XMS_ITS | Encounter Summary ---
Author Organization [facility] Address [address] [place] [address] Phone Care Team Providers Care Operations Research Scientist Name Role Phone Kirt Lindsay DO Primary Care Provider [phone] Josué Del Valle MD PhD Unavailable [phone] Encounter Details Date Type Department Care Team (Late st Contact Info) Description 01/22/2020 Orders Only [facility] Oncology [address] [facility] Advanced Medicine 7th [place] [address] [place] [address] Eneida Gibson MD [address] [place] [address] Type 2 diabetes mellitus with hyperosmolarity without coma, with long-term current use of insulin ([facility]) (Primary Dx) Social History Tobacco Use Types Packs/Day Years Used Date Smoking Tobacco: Every Day Smokeless Tobacco: Never Comments:Pt not interested i n smoking cessation program Sex and Gender Information Value Date Recorded Sex Assigned at Not on file Legal 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 Male 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 Gender Identity Not on file Sexual [...] coma, with long-term current use of insulin ([facility]) Inject 45 Units under the skin nightly Reorder 01/15/2020 01/22/2020 documented as of this encounter 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 Care Teams Operations Research Scientist Relationship Specialty Start Date End Date Kirt Lindsay DO PCP - General 05/02/17 11/22/20 Josué Del Valle MD PhD Medical Oncologist/Aws Consultant Medical Oncology 08/26/19 documented as of this encounter
--- OUTSIDE RECORDS SUMMARY | 2024-11-22 13:05 | XMS_ITS | Encounter Summary ---
Author Organization [facility] Address [address] [place] [address] Phone Care Team Providers Care Apprentice/Lineman Name Role Phone Kirt Lindsay DO Primary Care Provider [phone]- [phone] Josué Del Valle MD PhD Unavailable [phone] Encounter Details Date Type Department Care Team (Late st Contact Info) Description 01/22/2020 Documentation [facility] Oncology [address] [facility] Advanced [facility] 7th [place] [address] [place] [address] Penny Valero, RN Social History Tobacco Use Types Packs/Day Years Used Date Smoking Tobacco: Every Day Smokeless Tobacco: Never Comments:Pt not interested i n smoking cessation program Sex and Gender Information Value Date Recorded Sex Assigned at Not on file Legal Sex Male 10:48 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 BROILER OR FRY documented in this encounter Plan of Treatment Not on file documented as of this encounter Visit Diagnoses Not on filedocumented in this encounter 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 Care Teams Apprentice/Lineman Relationship Specialty Start Date End Date Kirt Lindsay DO PCP - General 05/02/17 11/22/20 Josué Del Valle MD PhD Medical Oncologist/Adapted Physical Education Specialist Medical Oncology 08/26/19 documented as of this encounter
--- OUTSIDE RECORDS SUMMARY | 2024-11-22 13:05 | XMS_ITS | Encounter Summary ---
Author Organization [facility] Address [address] [place] [address] Phone Care Team Providers Care Fast Food Crew Member Name Role Phone Kirt Lindsay DO Primary Care Provider [phone]- [phone] Josué Del Valle MD PhD Unavailable [phone] Encounter Details Date Type Department Care Team (Late st Contact Info) Description 12/11/2019 Documentation [facility] Oncology [address] [facility] Advanced [facility] 7th [place] [address] [place] [phone] Quiana Flores RMA Social History Tobacco Use Types Packs/Day Years Used Date Smoking Tobacco: Every Day Smokeless Tobacco: Never Comments:Pt not interested i n smoking cessation program Sex and Gender Information Value Date Recorded Sex Assigned at Not on file Legal Sex Male 10:48 AM DIRECTOR CLINICAL OPERATIONS Gender Identity Not on file Sexual Orientation Not on file documented as of this encounter Progress Notes * Quiana Flores RMA - 12/11/2019 12:00 PM CST LMOR Called pt to get blood sugar readings for the past 5 days and to what insulins or medication he is taking for his diabetes CTOR CLINICAL OPERATIONS documented in this encounter Plan of Treatment Not on file documented as of this encounter Visit Diagnoses Not on filedocumented in this encounter 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 Care Teams Fast Food Crew Member Relationship Specialty Start Date End Date Kirt Lindsay DO PCP - General 05/02/17 11/22/20 Josué Del Valle MD PhD Medical Oncologist/Foreign Car Mechanic Medical Oncology 08/26/19 documented as of this encounter
--- OUTSIDE RECORDS SUMMARY | 2024-11-22 13:05 | XMS_ITS | Encounter Summary ---
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 Oncology [address] [facility] 7th [place] [address] [place] [phone] Eneida Gibson MD [address] [place] [address] Type 2 diabetes mellitus with hyperosmolarity without [...] file Legal Sex Male 10:48 AM CHIEF WARDEN Gender Identity Not on file Sexual Orientation Not on file documented as of this encounter Last Filed Vital Signs Vital Sign Reading Time Taken Comments Blood Pressure 107/68 01/15/2020 12:14 PM CHIEF WARDEN Pulse 96 01/15/2020 12:14 PM CHIEF WARDEN Temperature 37.1 ??C (98.8 ??F) 01/15/2020 1 2:14 PM CHIEF WARDEN Respiratory Rate 18 01/15/2020 12:1 4 PM CHIEF WARDEN Oxygen Saturation 99% 01/15/2020 12: 14 PM CHIEF WARDEN Inhaled Oxygen Concentration - - Weight 75.7 kg (166 lb 12.8 oz) 020 12:14 PM CHIEF WARDEN Height - - Body Mass Index 23.93 11/20/2019 11:58 AM CHIEF WARDEN documented in this encounter Patient Instructions * Patient Instructions* Eneida Gibson MD - 01/15/2020 11:20 AM CHIEF WARDEN Increase Basaglar to 40 units in the morning Increase Ademlog to 20 units with meals Add sliding scale F WARDEN documented in this encounter Progress Notes * [...] , Rfl: 0 ??? INV-[facility] ruxolitinib (/INCB [id number]) 5 mg tablet, Take 1 tablet (5 [...] Notified 1305 TestName Glucose Called/Read Back [facility] Called By Dwaine Vitamin D [...] GIBSON MD; Clinic Appointment Location: [facility] [employer] [facility] Lab Draw Appt Request Arm Draw or Central Line Draw? Arm; What is your ordering location? IM Onc/Hem/BMT; Where will this patient receive treatment? [facility] 7 Hemoglobin A1c Comprehensive metabolic panel Vitamin [...] D 25 hydroxy RTC in 2 months. F WARDEN documented in this encounter Miscellaneous Notes * Assessment & Plan Note - Eneida Gibson MD - 01/15/2020 3:22 PM CSTAssociated Problem(s): Osteopenia -DEXA scan done 07/2019 revealed stable BMD -will continue vitamin D supplementation and dietary calcium F WARDEN * Assessment & Plan Note - Eneida Gibson MD - 01/15/2020 3:22 PM CSTAssociated Problem(s): Vitamin D deficiency -vitamin D levels still low, unclear compliance -will continue current regimen F WARDEN * Assessment & Plan Note - Eneida Gibson MD - 01/15/2020 3:22 PM CSTAssociated Problem(s): Pure hypercholesterolemia -LDL at goal -will continue atorvastatin 40 mg daily F WARDEN * Assessment & Plan Note - Eneida [...] -no retinopathy, has cataracts -BP at goal F WARDEN F WARDEN documented in this encounter Plan of Treatment [...] documented as of this encounter Care Teams Community Relations Rep Relationship Specialty Start Date End Date Kirt Lindsay DO PCP - General 05/02/17 11/22/20 Josué Del Valle MD PhD Medical Oncologist/Manager Eligibility Medical Oncology 08/26/19 documented as of this encounter
--- OUTSIDE RECORDS SUMMARY | 2024-11-22 13:05 | XMS_ITS | Encounter Summary ---
Author Organization [facility] Address [address] [place] [address] Phone Care Team Providers Care Commercial Loan Assistant Name Role Phone Kirt Lindsay DO Primary Care Provider [phone]- [phone] Josué Del Valle MD PhD Unavailable [phone] Reason for Visit * Reason Onset Date Comments Vori 01/18/2020 Encounter Details Date Type Department Care Team (Late st Contact Info) Description 01/18/2020 Documentation [facility] Bone Marrow Transplant [address] [facility] Advanced Medicine 7th Floor, [place] [address] Lluvia Vaca RMA Vori Social History Tobacco Use Types Packs/Day Years Used Date Smoking Tobacco: Every Day Smokeless Tobacco: Never Comments:Pt not interested i n smoking cessation program Sex and Gender Information Value Date Recorded Sex Assigned at Not on file Legal Sex Male 10:48 AM ALUMINUM WELDER Gender Identity Not on file Sexual Orientation Not on file documented as of this encounter Progress Notes * Lluvia Vaca MA - 01/18/2020 8:40 AM CST PA for Voriconazole submitted and approved through [employer] Valid 01/15/20-02/14/20 INUM WELDER documented in this encounter Plan of Treatment Not on file documented as of this encounter Visit Diagnoses Not on filedocumented in this encounter 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 Care Teams Commercial Loan Assistant Relationship Specialty Start Date End Date Kirt Lindsay DO PCP - General 05/02/17 11/22/20 Josué Del Valle MD PhD Medical Oncologist/Brand Sales Manager Medical Oncology 08/26/19 documented as of this encounter
--- OUTSIDE RECORDS SUMMARY | 2024-11-22 13:05 | XMS_ITS | Encounter Summary ---
Author Organization [facility] Address [address] [place] [address] Phone Care Team Providers Care Manager Of Investigations Name Role Phone Kirt Lindsay DO Primary Care Provider [phone]- [phone] Josué Del Valle MD PhD Unavailable [phone] Encounter Details Date Type Department Care Team (Latest Contact Info) Description 01/15/2020 12:[address] MAINTENANCE SUPERVISOR Office Visit [facility] Bone Marrow Transplant [address] [facility] Advanced Medicine 7th [address], [place] [address] Fisher, Kimberly Barnes NP [address] DIV IM BONE MARROW TRANSPLANT, [address] [place], [place] [id number] 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); Type 2 diabetes mellitus with hyperglycemia, with long-term current use of insulin (CMS/HCC); Dqozx-ffehrp-eixf disease (CMS/HCC); H/O allogeneic bone marrow transplant [...] on file Legal Sex Male 10:[address] MAINTENANCE SUPERVISOR Gender Identity Not on file Sexual [...] mcg inhalerIndications:AML (acute myeloid leukemia) in remission (HCC),Nceep-ngnikb-dkuo disease (HCC),H/O allogeneic bone marrow transplant ([facility]) Inhale 1 puff daily 1 each 2 [...] mg tabletIndications:AML (acute myeloid leukemia) in remission (HCC),Wetmh-uggemk-fjzl disease (HCC) Take 2 tablets (1,000 mg total) by mouth 2 (two) times a day 180 tablet 3 01/15/20 20 021 montelukast (SINGULAIR) 10 mg tabletIndications:AML (acute myeloid leukemia) in remission ([facility]),Siusj-nlcxun-hhrw disease (HCC) Take one tablet by mouth once daily 90 tablet 01/15/20 20 020 HumaLOG KwikPen Insulin 100 unit/mL insulin penIndications:type 2 diabetes mellitus Inject 20 Units under the skin daily with breakfast 6 mL 01/15/20 20 020 insulin lispro (HumaLOG) 100 unit/mL injectionIndications:AML (acute myeloid leukemia) in remission ([facility]),Type 2 diabetes mellitus with hyperglycemia, with long-term current use of insulin ([facility]) Inject 15 Units under the skin 3 (three) times a day before meals 10 mL 1 01/15/20 20 020 HumaLOG KwikPen Insulin 100 unit/mL insulin penIndications:AML (acute myeloid leukemia) in remission ([facility]) Inject 18 Units under the skin 2 (two) times a day before lunch and dinner PLUS your sliding scale. 10.8 mL 01/15/20 20 020 gabapentin (NEURONTIN) 300 mg capsuleIndications:Type 2 diabetes mellitus with hyperosmolarity without coma, with long-term current use of insulin ([facility]) TAKE 1 PO 4 times daily 120 capsule 1 01/15/20 20 020 furosemide (LASIX) 20 mg tabletIndications:Type 2 diabetes mellitus with hyperosmolarity without coma, with long-term current use of insulin ([facility]) Take 1 tablet (20 mg total) by mouth daily As needed. 30 tablet 01/15/20 20 024 ergocalciferol (VITAMIN D) 50,000 unit capsuleIndications:Vitam in D deficiency Take 1 capsule (50,000 Units total) by mouth once a week 4 capsule 11 01/15/20 20 021 blood glucose diagnostic stripIndications:Type 2 diabetes mellitus with hyperosmolarity without coma, with long-term current use of insulin ([facility]) Check blood sugar tid 100 each 4 01/15/20 20 022 Basaglar KwikPen U-100 Insulin 100 unit/mL (3 mL) insulin penIndications:Type 2 diabetes mellitus with hyperosmolarity without coma, with long-term current use of insulin ([facility]) Inject 45 Units under the skin nightly 13.5 mL 01/15/20 20 020 azithromycin (ZITHROMAX) 250 mg tabletIndications:Prophy laxis, Medical Take 1 tablet (250 mg total) by mouth 3 (three) times a week 30 tablet 1 01/15/20 20 020 atorvastatin (LIPITOR) 40 mg tabletIndications:AML (acute myeloid leukemia) in remission ([facility]),Type 2 diabetes mellitus with hyperglycemia, with long-term current use of insulin ([facility]),Vkqyk-dkbjqm-aexm disease (HCC),H/O allogeneic bone marrow transplant (HCC),Pure [...] Jennings NP - 01/15/2020 12:30 PM CST [facility] DEPARTMENT OF MEDICINE - SECTION OF BMT & LEUKEMIA [address] [place] [address]- PHONE: FAX: PATIENT NAME: BRI JONES : 1965 [place]: 12/04/2019 DISCHARGE DATE: 12/04/2019 Patient has a history of AML. 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 TREATMENT HISTORY: 1. Induction with 7+3 and HiDAC consolidation x3. 2. Decitabine maintenance on the CALGB 53590 protocol. 3. Relapsed disease, status post AMD/[facility]. 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 2. Chronic zarjp-pfvqkz-okrt disease. He was put on Jakafi EAP [...] back in 4 weeks. Kimberly Jennings ANP T OF WAY MAINTENANCE SUPERVISOR documented in this encounter Plan of Treatment Not on file documented as of this encounter Visit Diagnoses Diagnosis AML (acute myeloid leukemia) in remission (HCC) Type 2 diabetes mellitus with hyperglycemia, with long-term current use of insulin (HCC) Wplqa-vvageo-cysr disease (HCC) H/O allogeneic bone marrow transplant [...] hyperglycemia, with long-term current use of insulin (HCC),Shjvo-caloka-garq disease (HCC),H/O allogeneic bone marrow transplant (HCC),Pure [...] coma, with long-term current use of insulin ([facility]) Inject 45 Units under the skin nightly Reorder 12/04/2019 01/15/2020 blood glucose diagnostic stripIndications:Type 2 diabetes mellitus with hyperosmolarity without coma, with long-term current use of insulin ([facility]) Check blood sugar tid Reorder 07/01/2019 01/15/2020 [...] coma, with long-term current use of insulin ([facility]) Take 1 tablet (20 mg total) by mouth daily As needed. Reorder 08/07/2019 01/15/2020 gabapentin (NEURONTIN) 300 mg capsuleIndications:Type 2 diabetes mellitus with hyperosmolarity without coma, with long-term current use of insulin ([facility]) TAKE 1 PO 4 times daily Reorder [...] mg tabletIndications:AML (acute myeloid leukemia) in remission (HCC),Opfqb-ieumsq-pgcg disease (HCC) TAKE 1 TABLET BY MOUTH ONCE DAILY AT NIGHT Reorder 12/21/2019 01/15/2020 mycophenolate mofetil (CELLCEPT) 500 mg tabletIndications:AML (acute myeloid leukemia) in remission (HCC),Vieao-nhtwdd-wzhw disease (HCC) TAKE 2 TABLETS BY MOUTH [...] mcg inhalerIndications:AML (acute myeloid leukemia) in remission (HCC),Jcmtr-igfpcp-ngec disease (HCC),H/O allogeneic bone marrow transplant (HCC) [...] of this encounter Care Teams Manager Of Investigations Relationship Specialty Start Date End Date Kirt Lindsay DO PCP - General 05/02/17 11/22/20 Josué Del Valle MD PhD Medical Oncologist/Bottom Finisher Medical Oncology 08/26/19 documented as of this encounter
--- OUTSIDE RECORDS SUMMARY | 2024-11-22 13:05 | XMS_ITS | Encounter Summary ---
Author Organization [facility] Address [address] [facility] [address] [place] [address] Phone Care Team Providers Care Tank Calibrator Name Role Phone Kirt Lindsay DO Primary Care Provider [phone] Josué Del Valle MD PhD Unavailable [phone] Reason for Visit * Oncology (Routine) - Closed Specialty Diagnoses / Procedures Referred By Contac t Referred To Contact Lab Diagnoses #C,,, pt call Procedures ARM DRAW Josué Del Valle MD PhD Phone: tel: fax: [facility] [address] [facility] 7th [place] [address] [place] [address] Phone: tel: Referral ID Status Reason Start Date Expiration Date V isits Requested Visits Authorized [id number] Closed Specialty Services Required 11/20/2019 11/19/2020 24 24 Encounter Details Date Type Department Care Team (Late st Contact Info) Description 12/04/2019 9:00 AM MH TEACHER Lab [facility] [address] [facility] 7th [place] [address] [place] [address] AML (acute myeloid leukemia) in remission (CMS/HCC) Social History Tobacco Use Types Packs/Day Years Used Date Smoking Tobacco: Every Day Smokeless Tobacco: Never Comments:Pt not interested i n smoking cessation program Sex and Gender Information Value Date Recorded Sex Assigned at Not on file Legal Sex Male 10:48 AM MH TEACHER Gender Identity Not on file Sexual Orientation Not on file documented as of this encounter Plan of Treatment Not on file documented as of this encounter Procedures Procedure Name Priority Date/Time Associated Diagnosis Comments DIFFERENTIAL AUTO STAT 12/04/2019 10: 03 AM MH TEACHER AML (acute myeloid leukemia) in remission (CMS/HCC) CBC WITH AUTO DIFFERENTIAL STAT 12/04/2019 10:03 AM MH TEACHER AML (acute myeloid leukemia) in remission (CMS/HCC) CYTOMEGALOVIRUS (CMV) DNA, QUANT GEN LAB STAT 12/04/2019 9:50 AM MH TEACHER AML (acute myeloid leukemia) in remission (CMS/HCC) TACROLIMUS LEVEL, RANDOM STAT 12/04/2019 9:49 AM MH TEACHER AML (acute myeloid leukemia) in remission (CMS/HCC) URIC ACID STAT 12/04/2019 9:49 AM MH TEACHER AML (acute myeloid leukemia) in remission (CMS/HCC) MAGNESIUM STAT 12/04/2019 9:49 AM MH TEACHER AML (acute myeloid leukemia) in remission (CMS/HCC) LACTATE DEHYDROGENASE STAT 12/04/2019 9:49 AM MH TEACHER AML (acute myeloid leukemia) in remission (CMS/HCC) COMPREHENSIVE METABOLIC PANEL STAT 12/04/2019 9:49 AM MH TEACHER AML (acute myeloid leukemia) in remission (CMS/HCC) documented in this encounter Results * (ABNORMAL) Differential, auto (12/04/2019 10:03 AM MH TEACHER) Neutrophil abs 5.1 1.8 - 6.6 K/cumm ZULEMA DENT Comment:Testing performed by : [facility], [address] [place] [phone] Lymphocyte abs 3.9(H) 1.2 - 3.3 K/cumm [facility] Comment:Testing performed by : [facility], [address] [place] [phone] Monocyte abs 1.4(H) 0.2 - 1.2 K/cumm [facility] Comment:Testing performed by : [facility], [address] [place] [phone] Eosinophil abs 0.2 0.0 - 0.5 K/cumm [facility] Comment:Testing performed by : [facility], [address] [place] [phone] Basophil abs 0.1 0.0 - 0.2 K/cumm [facility] Comment:Testing performed by : [facility], [address] [place] [phone] Neutrophil pct 47.8 % [facility] Comment: Interpretive Data Percent cell count reference ranges are not reported, since discordance with absolute values may lead to misinterpretation of CBC data. Current Interpretive Data was last revised on 2018. Testing performed by: [facility], [address] [place] [phone] Lymphocyte pct 36.4 % [facility] Comment: Interpretive Data Percent cell count reference ranges are not reported, since discordance with absolute values may lead to misinterpretation of CBC data. Current Interpretive Data was last revised on 2018. Testing performed by: [facility], [address] [place] [phone] Monocyte pct 13.3 % [facility] Comment:Testing performed by : [facility], [address] [place] [phone] Eosinophil pct 1.5 % [facility] Comment:Testing performed by : [facility], [address] [place] [phone] Basophil pct 1.0 % [facility] Comment:Testing performed by : [facility], [address] [place] [phone] Blood specimen (specimen) 12/04/2019 10:03 AM MH TEACHER 12/04/2019 10:04 AM MH TEACHER Josué Del Valle MD PhD LAB BLOOD ORDERABLES Fin al Result [facility] One [facility] Department [place] [address] * (ABNORMAL) CBC with auto differential (12/04/2019 10:03 AM MH TEACHER) WBC 10.7(H) 3.8 - 9.8 K/cumm [facility] Comment:Testing performed by : [facility], [address] [place] [phone] Hgb 12.4(L) 13.8 - 17.2 g/dL [facility] Comment:Testing performed by : [address] [phone] Hct 38.1(L) 40.7 - 50.3 % [facility] Comment:Testing performed by : [address] [address] Plt 235 140 - 440 K/cumm ZULEMA [facility]J Comment:Testing performed by : [address] [address] MPV 8.4 6.8 - 10.4 fL [facility] Comment:Testing performed by : [address] [address] RBC 3.61(L) 4.50 - 5.70 M/cumm [facility] Comment:Testing performed by : [address] [address] MCV 105.5(H) 80.0 - 97.6 fL [facility] Comment:Testing performed by : [address] [address] MCH 34.4(H) 26.7 - 33.7 pg [facility] Comment:Testing performed by : [address] [address] MCHC 32.6(L) 32.7 - 35.5 g/dL [facility] Comment:Testing performed by : [address] [address] RDW CV 15.4(H) 11.8 - 14.6 % [facility] Comment:Testing performed by : [facility], [address] [facility] [address] NRBC abs 0.03(H) 0.00 - 0.01 K/cumm [facility] Comment:Testing performed by : [facility], [address] [facility] [address] Blood specimen (specimen) 12/04/2019 10:03 AM MH TEACHER 12/04/2019 10:04 AM MH TEACHER Josué Del Valle MD PhD LAB BLOOD ORDERABLES Fin al Result Performing Organization Address [facility] Co de Phone Number [facility] [place] [address] * Cytomegalovirus (CMV) DNA PCR, quantitative Blood (12/04/2019 9:50 AM MH TEACHER) [facility] CMV DNA Not Detected [facility] Comment: Interpretive Data: The quantifiable range of this assay is 137 IUnits/mL to 9,100,000 IUnits/mL (2.14 log IUnits/mL to 6.96 log IUnits/mL). Testing was performed by the [facility]HEL AmpliPrep/MICHEL TaqMan CMV Test ([employer] Testing performed at [facility] Current interpretive data was last revised on 17. Blood specimen (specimen) 12/04/2019 9:50 AM MH TEACHER 12/04/2019 12:44 PM MH TEACHER Josué Del Valle MD PhD LAB MICROBIOLOGY - GENER AL ORDERABLES Final Result Performing Organization Address [facility] Co de Phone Number [facility] [place] [address] * (ABNORMAL) Comprehensive metabolic panel (12/04/2019 9:49 AM MH TEACHER) [facility] Sodium 137 135 - 145 mmol/L [facility] Potassium, pl 4.6 3.3 - 4.9 mmol/L [facility] Chloride 98 97 - 110 mmol/L [facility] CO2 33(H) 22 - 32 mmol/L [facility] Anion gap 6 2 - 15 mmol/L [facility] BUN 13 8 - 25 mg/dL [facility] Creatinine 0.91 0.80 - 1.30 mg/dL [facility] Glucose 426(H) 70 - 199 mg/dL [facility] Comment: Interpretive Data Fasting glucose >/= [...] 2017. Calcium 9.7 8.5 - 10.3 mg/dL [facility] Bilirubin, total 0.3 0.1 - 1.2 mg/dL [facility] Protein, pl 6.8 6.5 - 8.5 g/dL [facility] Albumin 3.6 3.5 - 5.0 g/dL [facility] Alk phos 183(H) 40 - 130 Units/L [facility] ALT 67(H) 7 - 55 Units/L [facility] AST 49 10 - 50 Units/L [facility] Blood specimen (specimen) 12/04/2019 9:49 AM MH TEACHER 12/04/2019 10:31 AM MH TEACHER us Josué Del Valle MD PhD LAB BLOOD ORDERABLES Fin al Result [facility] One [facility] [place] [address] * (ABNORMAL) Lactate dehydrogenase (LD) (12/04/2019 9:49 AM MH TEACHER) Lactate dehydrogenase (LDH) 512(H) 100 - 250 Units/L [facility] Blood specimen (specimen) 12/04/2019 9:49 AM MH TEACHER 12/04/2019 10:31 AM MH TEACHER Josué Del Valle MD PhD LAB BLOOD ORDERABLES Fin al Result Performing Organization Address [facility] de Phone Number [facility] [place] [address] * Magnesium (12/04/2019 9:49 AM MH TEACHER) Magnesium 1.4 1.4 - 2.5 mg/dL [facility] Blood specimen (specimen) 12/04/2019 9:49 AM MH TEACHER 12/04/2019 10:31 AM MH TEACHER Josué Del Valle MD PhD LAB BLOOD ORDERABLES Fin al Result Performing Organization Address [facility] Phone Number [facility] [place] [address] * Tacrolimus level, random (12/04/2019 9:49 AM MH TEACHER) Tacrolimus, random 3.9 ng/mL [facility] Comment: Interpretive Data Testing performed by liquid chromatography-tandem mass spectrometry. ??Therapeutic concentrations vary depending on type of transplanted organ and time elapsed since transplant. ??Typical trough concentrations range from 5-15 ng/mL. ??This test was developed and its performance characteristics determined by the [facility] consistent with CLIA requirements. ??This test has not been cleared or approved by the [place] Food and Drug administration. ??Current interpretive data last reviewed 2019. Blood specimen (specimen) 12/04/2019 9:49 AM MH TEACHER 12/04/2019 10:13 AM MH TEACHER Josué Del Valle MD PhD LAB BLOOD ORDERABLES Fin al Result Performing Organization Address [facility] Phone Number [facility] [place] [address] * Uric acid (12/04/2019 9:49 AM MH TEACHER) Uric acid 3.1 3.0 - 8.0 mg/dL [facility] Blood specimen (specimen) 12/04/2019 9:49 AM MH TEACHER 12/04/2019 10:31 AM MH TEACHER us Josué Del Valle MD PhD LAB BLOOD ORDERABLES Fin al Result [facility] One [facility] [place] [address] documented in this encounter Visit Diagnoses Diagnosis AML (acute myeloid leukemia) in remission (HCC) documented in this encounter 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
--- OUTSIDE RECORDS SUMMARY | 2024-11-22 13:05 | XMS_ITS | Encounter Summary ---
Author Organization [facility] Facility Care Team Providers Care Tax Audit Manager Name Role Phone Kirt Lindsay DO Primary Care Provider [phone] Josué Del Valle MD PhD Unavailable [phone] Encounter Details Date Type Department Care Team (Latest Contact Info) Description 01/15/2020 Travel Social History Tobacco Use Types Packs/Day Years Used Date Smoking Tobacco: Every Day Smokeless Tobacco: Never Comments:Pt not interested i n smoking cessation program Sex and Gender Information Value Date Recorded Sex Assigned at Not on file Legal Sex Male 10:48 AM NUCLEAR POWERPLANT SUPERVISOR Gender Identity Not on file Sexual Orientation Not on file documented as of this encounter Plan of Treatment Not on file documented as of this encounter Visit Diagnoses Not on filedocumented in this encounter 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 Care Teams Tax Audit Manager Relationship Specialty Start Date End Date Kirt Lindsay DO PCP - General 05/02/17 11/22/20 Josué Del Valle MD PhD Medical Oncologist/Setter Machine Medical Oncology 08/26/19 documented as of this encounter
--- OUTSIDE RECORDS SUMMARY | 2024-11-22 13:05 | XMS_ITS | Encounter Summary ---
Author Organization [facility] Address [address] [place] [address] Phone Care Team Providers Care Brand Ambassador Name Role Phone Kirt Lindsay DO Primary Care Provider [phone] Josué Del Valle MD PhD Unavailable [phone] Encounter Details Date Type Department Care Team (Late st Contact Info) Description 12/04/2019 9:40 AM WEB MOBILE DESIGNER Office Visit [facility] [address] [facility] 7th Floor, [place] [address] Narcisa Kilgore NP [address] DIV IM BONE MARROW TRANSPLANT, [address] [place] [address] 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); Gmlrh-ejtdfz-sstg disease (CMS/HCC); S/P allogeneic bone marrow transplant (CMS/HCC); Type 2 diabetes mellitus with hyperosmolarity without coma, with long-term current use of insulin (CMS/HCC); AML (acute myeloid leukemia) in remission (CMS/HCC); H/O allogeneic bone marrow transplant (CMS/HCC); Type 2 diabetes mellitus with hyperglycemia, with long-term current use of insulin ([facility]) Social History Tobacco Use Types Packs/Day Years Used Date Smoking Tobacco: Every Day Smokeless Tobacco: Never Comments:Pt not interested i n smoking cessation program Sex and Gender Information Value Date Recorded Sex Assigned at Not on file Legal Sex Male 10:48 AM WEB MOBILE DESIGNER Gender Identity Not on file Sexual Orientation Not on file documented as of this encounter Last Filed Vital Signs Vital Sign Reading Time Taken Comments Blood Pressure 100/69 12/04/2019 10:18 AM WEB MOBILE DESIGNER Pulse 106 12/04/2019 10:18 AM WEB MOBILE DESIGNER Temperature 36.6 ??C (97.9 ??F) 12/04/2019 10:[address] Respiratory Rate 18 12/04/2019 10:18 AM WEB MOBILE DESIGNER Oxygen Saturation 92% 12/04/2019 10:18 AM WEB MOBILE DESIGNER Inhaled Oxygen Concentration - - Weight 80.8 kg (178 lb 3.2 oz) 12/04/2019 10:18 AM WEB MOBILE DESIGNER Height - - Body Mass Index 25.57 11/20/2019 11:58 AM WEB MOBILE DESIGNER documented in this encounter Ordered Prescriptions Prescription [...] of insulin ([facility]) Inject 45 Units under the skin nightly 13.5 mL 12/04/2019 0 documented in this encounter Progress Notes * Narcisa Kilgore NP - 12/04/2019 12:00 AM CST [facility] DEPARTMENT OF MEDICINE - SECTION OF BMT & LEUKEMIA [address] [place] [phone]- PHONE: FAX: PATIENT NAME: BRI JONES : 1965 ROSY: 12/04/2019 DISCHARGE DATE: 12/04/2019 Patient has a history of AML. 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 TREATMENT HISTORY: 1. Induction with 7+3 and HiDAC consolidation x3. 2. Decitabine maintenance on the [facility] [address] protocol. 3. Relapsed disease, status post AMD/[facility]. 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 TRANSPLANT HISTORY: Status post an allogeneic transplant with busulfan and Cytoxan on the [facility] allogeneic study with hissister, 08/27 match; with [...] allo transplant 3677 days ago. 2. Chronic aaxwd-kyguqx-jzuk disease. He was put on Jakafi EAP [...] In collaboration with Josué Del Valle M.D. [employer]KO[employer] MOBILE DESIGNER documented in this encounter Nursing Notes * Kari Mcbride, RN - 12/04/2019 9:40 AM CST ROV with Cameron Kilgore TCV Admit 1-3 Discharge 1-11 AML s/p Sib Allo [id number] Bu/Cy day +367 Started on EAP Jakafi [...] provided 2 cycles per cycle 1 communication) MOBILE DESIGNER documented in this encounter Plan of Treatment Not on file documented as of this encounter Results * (ABNORMAL) CBC with auto differential (01/15/2020 11:35 AM WEB MOBILE DESIGNER) WBC 7.9 3.8 - 9.8 K/cumm ZU[facility]MA DENT Comment:Testing performed by : [facility], [address] [place] [phone] Hgb 14.5 13.8 - 17.2 g/dL [facility] Comment:Testing performed by : [facility], [address] [place] [phone] Hct 43.4 40.7 - 50.3 % [facility]ULEMA SOM[facility]ERS Comment:Testing performed by : [facility], [address] [place], [place] [phone] Plt 267 140 - 440 K/cumm [facility] Comment:Testing performed by : [facility], [address] [place], [place] [phone] MPV 8.9 6.8 - 10.4 fL [facility] Comment:Testing performed by : [facility], [address] [place], [place] [phone] RBC 4.28(L) 4.50 - 5.70 M/cumm [facility] Comment:Testing performed by : [facility], [address] [place], [place] [phone] MCV 101.3(H) 80.0 - 97.6 fL [facility] Comment:Testing performed by : [facility], [address] [place], [place] [phone] MCH 33.8(H) 26.7 - 33.7 pg [facility] Comment:Testing performed by : [facility], [address] [place], [place] [phone] MCHC 33.3 32.7 - 35.5 g/dL [facility] Comment:Testing performed by : [facility], [address] [place], [place] [phone] RDW CV 14.2 11.8 - 14.6 % [facility] Comment:Testing performed by : [address] [phone] NRBC abs 0.01 0.00 - 0.01 K/cumm [facility]MA [facility] Comment:Testing performed by : [facility], [address] [place] [phone] Blood specimen (specimen) 01/15/2020 11:35 AM WEB MOBILE DESIGNER 01/15/2020 11:37 AM WEB MOBILE DESIGNER us Narcisa Kilgore DEMURRAGE CLERK LAB BLOOD ORDERABLES Pilar l Result [facility] One [facility] Department [place] [address] * (ABNORMAL) Lactate dehydrogenase (LD) (01/15/2020 11:32 AM WEB MOBILE DESIGNER) Lactate dehydrogenase (LDH) 296(H) 100 - 250 Units/L [facility] Blood specimen (specimen) 01/15/2020 11:32 AM WEB MOBILE DESIGNER 01/15/2020 12:26 PM WEB MOBILE DESIGNER Narcisa Kilgore DEMURRAGE CLERK LAB BLOOD ORDERABLES Pilar pawel Result [facility] One [facility] Department [place] [address] * (ABNORMAL) Comprehensive metabolic panel (01/15/2020 11:32 AM WEB MOBILE DESIGNER) Pathologist [facility] Sodium 133(L) 135 - 145 mmol/L [facility] Potassium, pl 4.3 3.3 - 4.9 mmol/L [facility] Chloride 92(L) 97 - 110 mmol/L [facility] CO2 28 22 - 32 mmol/L [facility] Anion gap 13 2 - 15 mmol/L [facility] BUN 20 8 - 25 mg/dL [facility] Creatinine 0.83 0.80 - 1.30 mg/dL [facility] Glucose 567(C) 70 - 199 mg/dL [facility] Bilirubin, total 0.3 0.1 - 1.2 mg/dL [facility] Protein, pl 7.0 6.5 - 8.5 g/dL [facility] Albumin 4.2 3.5 - 5.0 g/dL [facility] Alk phos 111 40 - 130 Units/L [facility] ALT 18 7 - 55 Units/L [facility] AST 42 10 - 50 Units/L [facility] Blood specimen (specimen) 01/15/2020 11:32 AM WEB MOBILE DESIGNER 01/15/2020 12:26 PM WEB MOBILE DESIGNER Narcisa Kilgore DEMURRAGE CLERK LAB BLOOD ORDERABLES Pilar l Result Performing Organization Address [facility]/ZIP Co de Phone Number [facility] [place] [address] * Type and screen (01/15/2020 11:32 AM WEB MOBILE DESIGNER) Pathologist [facility] ABO Rh A Positive [facility] Ursula, indirect Negative [facility] Blood specimen (specimen) 01/15/2020 11:32 AM WEB MOBILE DESIGNER 01/15/2020 11:49 AM WEB MOBILE DESIGNER Narrative [facility] - 01/15/2020 12:38 PM WEB MOBILE DESIGNER Has the patient had Daratumumab (Darzalex) in the past 6 months?->Unknown Narcisa Kilgore NP LAB BLOOD BANK TEST ORDER SUBHA Final Result Performing Organization Address [facility] de Phone Number [facility] [place] [address] * Cytomegalovirus (CMV) DNA PCR, quantitative Blood (01/15/2020 11:32 AM WEB MOBILE DESIGNER) [facility] CMV DNA Not Detected [facility] Comment: Interpretive Data: The quantifiable range of this assay is 137 IUnits/mL to 9,100,000 IUnits/mL (2.14 log IUnits/mL to 6.96 log IUnits/mL). Testing was performed by the [employer] AmpliPrep/MICHEL TaqMan CMV Test ([employer] Testing performed at [facility] Current interpretive data was last revised on 17. Blood specimen (specimen) 01/15/2020 11:32 AM WEB MOBILE DESIGNER 01/15/2020 12:19 PM WEB MOBILE DESIGNER us Narcisa Kilgore NP LAB MICROBIOLOGY - GENERA L ORDERABLES Final Result [facility] One [facility] [place] [address] documented in this encounter Visit Diagnoses Diagnosis Acute myeloid leukemia in remission (HCC)- Primary Acute myeloid leukemia in remission Usjqp-yhfkjc-amfk disease (HCC) S/P allogeneic bone marrow transplant [...] with long-term current use of insulin (HCC) Hxokk-cbamcf-egxd disease (HCC) Acute myeloid leukemia in remission [...] as of this encounter Care Teams Brand Ambassador Relationship Specialty Start Date End Date Kirt Lindsay DO PCP - General 05/02/17 11/22/20 Josué Del Valle MD PhD Medical Oncologist/Blood Bank Order Control Clerk Medical Oncology 08/26/19 documented as of this encounter
--- OUTSIDE RECORDS SUMMARY | 2024-11-22 13:05 | XMS_ITS | Encounter Summary ---
Author Organization [facility] Address [address] [place] [address] Phone Care Team Providers Care Biodiesel Product Manager Name Role Phone Kirt Lindsay DO Primary Care Provider [phone] Josué Del Valle MD PhD Unavailable [phone] Encounter Details Date Type Department Care Team (Late st Contact Info) Description 01/21/2020 Orders Only [facility] Bone Marrow Transplant [address] [facility] Advanced Medicine 7th Floor, [place] [address] Josué Del Valle MD PhD [address] DIV IM BONE MARROW TRANSPLANT, [address] [place] [address] Wmbwt-nccaqb-efwt disease (CMS/HCC) (Primary Dx) Social History Tobacco Use Types Packs/Day Years Used Date Smoking Tobacco: Every Day Smokeless Tobacco: Never Comments:Pt not interested i n smoking cessation program Sex and Gender Information Value Date Recorded Sex Assigned at Not on file Legal Sex Male 10:48 AM CANDY CUTTER HAND Gender Identity Not on file Sexual Orientation Not on file documented as of this encounter Plan of Treatment Not on file documented as of this encounter Visit Diagnoses Diagnosis Egcao-imcwte-ufqk disease (HCC)- Primary documented in this encounter 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 Care Teams Biodiesel Product Manager Relationship Specialty Start Date End Date Kirt Lindsay DO PCP - General 05/02/17 11/22/20 Josué Del Valle MD PhD Medical Oncologist/Engine [facility] Medical Oncology 08/26/19 documented as of this encounter
--- OUTSIDE RECORDS SUMMARY | 2024-11-22 13:05 | XMS_ITS | Encounter Summary ---
Author Organization [facility] Address [address] [place] [address] Phone Care Team Providers Care Law Enforcement Officer Name Role Phone Kirt Lindsay DO Primary Care Provider [phone] Josué Del Valle MD PhD Unavailable [phone] Encounter Details Date Type Department Care Team (Late st Contact Info) Description 11/30/2019 Telephone [facility] Bone Marrow Transplant [address] [facility] Advanced Medicine 7th Floor, [place] [address] Mellisa Rubalcava RN Social History Tobacco Use Types Packs/Day Years Used Date Smoking Tobacco: Every Day Smokeless Tobacco: Never Comments:Pt not interested i n smoking cessation program Sex and Gender Information Value Date Recorded Sex Assigned at Not on file Legal Sex Male 10:48 AM SPECIAL EVENTS ASSISTANT Gender Identity Not on file Sexual Orientation Not on file documented as of this encounter Miscellaneous Notes * Telephone Encounter - Mellisa Rubalcava RN - 11/30/2019 3:13 PM SPECIAL EVENTS ASSISTANT D/C Date: 11-28-19 Discharged from: [facility] Discharge to: home Issues since Discharge: none [...] correct dose prescribed, if currently taking? yes IAL EVENTS ASSISTANT IAL EVENTS ASSISTANT documented in this encounter Plan of Treatment Not on file documented as of this encounter Visit Diagnoses Not on filedocumented in this encounter 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 Care Teams Law Enforcement Officer Relationship Specialty Start Date End Date Kirt Lindsay DO PCP - General 05/02/17 11/22/20 Josué Del Valle MD PhD Medical Oncologist/Winder Fixer Medical Oncology 08/26/19 documented as of this encounter
--- OUTSIDE RECORDS SUMMARY | 2024-11-22 13:05 | XMS_ITS | Encounter Summary ---
Author Organization [facility] Address [address] [place] [address] Phone Care Team Providers Care Consulting Application Engineer Name Role Phone Kirt Lindsay DO Primary Care Provider [phone] Josué Del Valle MD PhD Unavailable Encounter Details Date Type Department Care Team (Late st Contact Info) Description 01/14/2020 Orders Only [facility] [address] [facility] Advanced Medicine 7th [place] [address] [place] [id number] Eneida Gibson MD [address] [place] [address] Type 2 diabetes mellitus with hyperosmolarity without coma, with long-term current use of insulin (CMS/HCC) (Primary Dx) Social History Tobacco Use Types Packs/Day Years Used Date Smoking Tobacco: Every Day Smokeless Tobacco: Never Comments:Pt not interested i n smoking cessation program Sex and Gender Information Value Date Recorded Sex Assigned at Not on file Legal Sex Male 10:48 AM CORN HUSKER 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 Gender Identity Not on file Sexual Orientation Not on file documented as of this encounter Plan of Treatment Not on file documented as of this encounter Results * (ABNORMAL) Vitamin D 25 hydroxy (01/15/2020 11:33 AM CORN HUSKER 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) Vitamin D 25-OH 20(L) 30 - 80 ng/mL [facility] Blood specimen (specimen) 01/15/2020 11:33 AM CORN HUSKER 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 01/15/2020 11:49 AM CORN HUSKER 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 us Eneida Gibson MD LAB BLOOD ORDERABLES Final Resul t [facility] Department [place] [address] * (ABNORMAL) Comprehensive metabolic panel (01/15/2020 11:33 AM CORN HUSKER 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) Pathologist [facility] Sodium 132(L) 135 - 145 mmol/L [facility] Potassium, pl 4.8 3.3 - 4.9 mmol/L [facility] Comment:Hemolyzed; Potassium value may be falsely elevated by as much as 0.6-1.0 mmol/L. Suggest redraw and reanalysis. Chloride 92(L) 97 - 110 mmol/L [facility] CO2 26 22 - 32 mmol/L [facility] Anion gap 14 2 - 15 mmol/L [facility] BUN 20 8 - 25 mg/dL [facility] Creatinine 0.82 0.80 - 1.30 mg/dL [facility] Glucose 569(C) 70 - 199 mg/dL [facility] [...] 10.3 mg/dL [facility] Bilirubin, total 0.3 0.1 - 1.2 mg/dL [facility] Protein, pl 7.0 6.5 - 8.5 g/dL [facility] Albumin 4.1 3.5 - 5.0 g/dL [facility] Alk phos 110 40 - 130 Units/L [facility] ALT 19 7 - 55 Units/L [facility] AST 47 10 - 50 Units/L [facility] Comment:Hemolyzed; result ma y be falsely elevated Blood specimen (specimen) 01/15/2020 11:33 AM CORN HUSKER 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 01/15/2020 11:49 AM CORN HUSKER 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 Eneida Gibson MD LAB BLOOD ORDERABLES Final Resul t Performing Organization Address [facility] de Phone Number [id number] [place] [address] * (ABNORMAL) Hemoglobin A1c (01/15/2020 11:33 AM CORN HUSKER 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) Hgb A1C 12.4(H) 4.0 - 5.6 % [facility] Estimated Average Glucose 309 mg/dL [facility] Comment: The ADA recommends reporting an estimated Average Glucose (eAG) with all Hemoglobin A1c results using the equation derived from a study of 507 normal and diabetic adults. ??Minority populations were underrepresented and children were not included. ?? (Diabetes Care 31:4151-8835, 2008). ??The eAG is not equivalent to a fasting glucose. Blood specimen (specimen) 01/15/2020 11:33 AM CORN HUSKER 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 01/15/2020 11:49 AM CORN HUSKER 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 Eneida Gibson MD LAB BLOOD ORDERABLES Final Resul t Performing Organization Address [facility] Co de Phone Number [facility] [place] [address] documented in this encounter Visit Diagnoses Diagnosis Type 2 diabetes mellitus with hyperosmolarity without coma, with long-term current use of insulin (HCC)- Primary documented in this encounter Additional Health Concerns 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 September 06, 2011 11/26/2010 11/26/201006/182021 5:00 AM CDT documented as of this encounter Care Teams Consulting Application Engineer Relationship Specialty Start Date End Date Kirt Lindsay DO PCP - General 05/02/17 11/22/20 Josué Del Valle MD PhD Medical Oncologist/Pulmonary Physical Therapist Medical Oncology 08/26/19 documented as of this encounter
--- OUTSIDE RECORDS SUMMARY | 2024-11-22 13:05 | XMS_ITS | Encounter Summary ---
Author Organization [facility] Address [address] [place] [address] Phone Care Team Providers Care Probation Manager Name Role Phone Kirt Lindsay DO Primary Care Provider [phone] Josué Del Valle MD PhD Unavailable [phone] Encounter Details Date Type Department Care Team (Late st Contact Info) Description 01/15/2020 10:45 AM WIRE FRAME MAKER Lab [facility] On[facility] [address] [facility] 7th [place] [address] [place] [address] Type 2 diabetes mellitus with hyperosmolarity without coma, with long-term current use of insulin (CMS/HCC); Cayqn-engtup-spcv disease (CMS/HCC); 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); S/P allogeneic bone marrow transplant ([facility]/HCC) Social History Tobacco Use Types Packs/Day Years Used Date Smoking Tobacco: Every Day Smokeless Tobacco: Never Comments:Pt not interested i n smoking cessation program Sex and Gender Information Value Date Recorded Sex Assigned at Not on file Legal Sex Male 10:48 AM WIRE FRAME MAKER Gender Identity Not on file Sexual Orientation Not on file documented as of this encounter Plan of Treatment Not on file documented as of this encounter Procedures Procedure Name Priority Date/Time Associated Diagnosis Comments DIFFERENTIAL AUTO Routine 01/15/2020 11: 35 AM WIRE FRAME MAKER Mhywy-tqrbda-lpxg disease (CMS/HCC) 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) S/P allogeneic bone marrow transplant (CMS/HCC) CBC WITH AUTO DIFFERENTIAL Routine 01/15/2020 11:35 AM WIRE FRAME MAKER Mczfe-pmnicj-mmcp disease (CMS/HCC) 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) S/P allogeneic bone marrow transplant (CMS/HCC) CRITICAL RESULT CALLBACK CHEMISTRY Routine 01/15/2020 11:33 AM WIRE FRAME MAKER Type 2 diabetes mellitus with hyperosmolarity without coma, with long-term current use of insulin (CMS/HCC) VITAMIN D 25 HYDROXY Routine 01/15/2020 11:33 AM WIRE FRAME MAKER Type 2 diabetes mellitus with hyperosmolarity without coma, with long-term current use of insulin (CMS/HCC) HEMOGLOBIN A1C Routine 01/15/2020 11:33 AM WIRE FRAME MAKER Type 2 diabetes mellitus with hyperosmolarity without coma, with long-term current use of insulin ([facility]/HCC) COMPREHENSIVE METABOLIC PANEL Routine 01/15/2020 11:33 AM WIRE FRAME MAKER Type 2 diabetes mellitus with hyperosmolarity without coma, with long-term current use of insulin ([facility]/HCC) CYTOMEGALOVIRUS (CMV) DNA, QUANT GEN LAB Routine 01/15/2020 11:32 AM WIRE FRAME MAKER Mlint-jmbbnt-wvug disease (CMS/HCC) 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) S/P allogeneic bone marrow transplant (CMS/HCC) CRITICAL RESULT CALLBACK CHEMISTRY Routine 01/15/2020 11:32 AM WIRE FRAME MAKER Imoqd-fvbayw-bbby disease (CMS/HCC) 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) S/P allogeneic bone marrow transplant (CMS/HCC) TYPE AND SCREEN Routine 01/15/2020 11:32 AM WIRE FRAME MAKER Afhib-hnjvpe-bfzc disease (CMS/HCC) 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) S/P allogeneic bone marrow transplant (CMS/HCC) LACTATE DEHYDROGENASE Routine 01/15/2020 11:32 AM WIRE FRAME MAKER Buecm-qywtvh-iznn disease (CMS/HCC) 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) S/P allogeneic bone marrow transplant (CMS/HCC) COMPREHENSIVE METABOLIC PANEL Routine 01/15/2020 11:32 AM WIRE FRAME MAKER Xnfmf-gcgrgf-gkpp disease (CMS/HCC) 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) S/P allogeneic bone marrow transplant (CMS/HCC) documented in this encounter Results * Differential, auto (01/15/2020 11:35 AM WIRE FRAME MAKER) Neutrophil abs 6.0 1.8 - 6.6 K/cumm [facility] Comment:Testing performed by : [facility], [address] [place] [phone] Lymphocyte abs 1.4 1.2 - 3.3 K/cumm [facility] Comment:Testing performed by : [facility], [address] [place] [phone] Monocyte abs 0.3 0.2 - 1.2 K/cumm [facility] Comment:Testing performed by : [facility], [address] [place] [phone] Eosinophil abs 0.0 0.0 - 0.5 K/cumm [facility] Comment:Testing performed by : [facility], [address] [place] [phone] Basophil abs 0.0 0.0 - 0.2 K/cumm [facility] Comment:Testing performed by : [facility], [address] [place] [phone] Neutrophil pct 76.7 % [facility] Comment: Interpretive Data Percent cell count reference ranges are not reported, since discordance with absolute values may lead to misinterpretation of CBC data. Current Interpretive Data was last revised on 2018. Testing performed by: [facility], [address] [place] [phone] Lymphocyte pct 18.3 % [facility] Comment: Interpretive Data Percent cell count reference ranges are not reported, since discordance with absolute values may lead to misinterpretation of CBC data. Current Interpretive Data was last revised on 2018. Testing performed by: [facility], [address] [place] [phone] Monocyte pct 4.4 % ZULEMA DENT Comment:Testing performed by : [facility], [address] [place] [phone] Eosinophil pct 0.1 % ZULEMA D[facility] Comment:Testing performed by : [facility], [address] [place] [phone] Basophil pct 0.5 % ZULEMA DENT Comment:Testing performed by : [facility], [address] [place] [phone] Blood specimen (specimen) 01/15/2020 11:35 AM WIRE FRAME MAKER 01/15/2020 11:37 AM WIRE FRAME MAKER us Narcisa Kilgore AFTER SCHOOL COUNSELOR LAB BLOOD ORDERABLES Pilar armas Result Performing Organization Address City/State/[facility] Co de Phone Number ZULEMA [facility] One [facility] [place] [address] * (ABNORMAL) CBC with auto differential (01/15/2020 11:35 AM WIRE FRAME MAKER) WBC 7.9 3.8 - 9.8 K/cumm ZULEMA DENT Comment:Testing performed by : [facility], [address] [place] [phone] Hgb 14.5 13.8 - 17.2 g/dL ZULEMA DENT Comment:Testing performed by : [facility], [address] [place] [phone] Hct 43.4 40.7 - 50.3 % ZULEMA DENT Comment:Testing performed by : [facility], [address] [place] [phone] Plt 267 140 - 440 K/cumm ZULEMA DENT Comment:Testing performed by : [address] [phone] MPV 8.9 6.8 - 10.4 fL ZULEMA DENT Comment:Testing performed by : [facility], [address] [place] [phone] RBC 4.28(L) 4.50 - 5.70 M/cumm ZULEMA DENT Comment:Testing performed by : [facility], [address] [place], [place] [phone] MCV 101.3(H) 80.0 - 97.6 fL ZULEMA DENT Comment:Testing performed by : [facility], [address] [place] [phone] MCH 33.8(H) 26.7 - 33.7 pg ZULEMA DENT Comment:Testing performed by : [facility], [address] [place] [phone] MCHC 33.3 32.7 - 35.5 g/dL ZULEMA DENT Comment:Testing performed by : [facility], [address] [place] [phone] RDW CV 14.2 11.8 - 14.6 % ZULEMA DENT Comment:Testing performed by : [facility], [address] [place] [phone] NRBC abs 0.01 0.00 - 0.01 K/cumm ZULEMA [facility] Comment:Testing performed by : [facility], [address] [place] [phone] Blood specimen (specimen) 01/15/2020 11:35 AM WIRE FRAME MAKER 01/15/2020 11:37 AM WIRE FRAME MAKER Narcisa Kilgore AFTER SCHOOL COUNSELOR LAB BLOOD ORDERABLES Pilar l Result ZULEMA [facility] One [facility] [place] [address] * Critical Result Callback Chemistry (01/15/2020 11:33 AM WIRE FRAME MAKER) Date Notified [id number] ZULEMA DENT Time Notified 1227 ZULEMA DENT TestName Glucose ZULEMA SOMMERS Called/Read Back Penny DENT Credentials RN ZULEMA DENT Called By RAMSEY SOMMERS Blood specimen (specimen) 01/15/2020 11:33 AM WIRE FRAME MAKER 01/15/2020 11:55 AM WIRE FRAME MAKER Eneida Gibson MD LAB BLOOD ORDERABLES Final Resul t Performing Organization Address [facility] de Phone Number [facility] [place] [address] * (ABNORMAL) Hemoglobin A1c (01/15/2020 11:33 AM WIRE FRAME MAKER) Hgb A1C 12.4(H) 4.0 - 5.6 % [facility] Estimated Average Glucose 309 mg/dL [facility] Comment: The ADA recommends reporting an estimated Average Glucose (eAG) with all Hemoglobin A1c results using the equation derived from a study of 507 normal and diabetic adults. ??Minority populations were underrepresented and children were not included. ?? (Diabetes Care 31:5344-5798, 2008). ??The eAG is not equivalent to a fasting glucose. Blood specimen (specimen) 01/15/2020 11:33 AM WIRE FRAME MAKER 01/15/2020 11:49 AM WIRE FRAME MAKER Eneida Gibson MD LAB BLOOD ORDERABLES Final Resul t Performing Organization Address [facility] de Phone Number [facility] [place] [address] * (ABNORMAL) Comprehensive metabolic panel (01/15/2020 11:33 AM WIRE FRAME MAKER) Pathologist [facility] Sodium 132(L) 135 - 145 mmol/L [facility] Potassium, pl 4.8 3.3 - 4.9 mmol/L [facility] Comment:Hemolyzed; Potassium value may be falsely elevated by as much as 0.6-1.0 mmol/L. Suggest redraw and reanalysis. Chloride 92(L) 97 - 110 mmol/L [facility] CO2 26 22 - 32 mmol/L [facility] Anion gap 14 2 - 15 mmol/L [facility] BUN 20 8 - 25 mg/dL [facility] Creatinine 0.82 0.80 - 1.30 mg/dL [facility] Glucose 569(C) 70 - 199 mg/dL [facility] Comment: [...] 9.2 8.5 - 10.3 mg/dL [facility] Bilirubin, total 0.3 0.1 - 1.2 mg/dL [facility] Protein, pl 7.0 6.5 - 8.5 g/dL [facility] Albumin 4.1 3.5 - 5.0 g/dL [facility] Alk phos 110 40 - 130 Units/L [facility] ALT 19 7 - 55 Units/L [facility] AST 47 10 - 50 Units/L [facility] Comment:Hemolyzed; result ma y be falsely elevated Blood specimen (specimen) 01/15/2020 11:33 AM WIRE FRAME MAKER 01/15/2020 11:49 AM WIRE FRAME MAKER Eneida Gibson MD LAB BLOOD ORDERABLES Final Resul t Performing Organization Address [facility] Co de Phone Number [facility] Department [place] [address] * (ABNORMAL) Vitamin D 25 hydroxy (01/15/2020 11:33 AM WIRE FRAME MAKER) Vitamin D 25-OH 20(L) 30 - 80 ng/mL [facility] Blood specimen (specimen) 01/15/2020 11:33 AM WIRE FRAME MAKER 01/15/2020 11:49 AM WIRE FRAME MAKER Eneida Gibson MD LAB BLOOD ORDERABLES Final Resul t Performing Organization Address [facility] Co de Phone Number [facility] [place] [address] * Critical Result Callback Chemistry (01/15/2020 11:32 AM WIRE FRAME MAKER) Date Notified [id number] [facility] Time Notified [facility] [facility] TestName Glucose ZULEMA DENT Called/Read Back Nikhilmagy Menondyllan POOLE [facility] Credentials RN ZULEMA DENT Called By Ramsey [facility] Blood specimen (specimen) 01/15/2020 11:32 AM WIRE FRAME MAKER 01/15/2020 12:32 PM WIRE FRAME MAKER Narcisa Kilgore AFTER SCHOOL COUNSELOR LAB BLOOD ORDERABLES Pilar l Result [place] [address] * Cytomegalovirus (CMV) DNA PCR, quantitative Blood (01/15/2020 11:32 AM WIRE FRAME MAKER) Pathologist [facility] CMV DNA Not Detected [facility] Comment: Interpretive Data: The quantifiable range of this assay is 137 IUnits/mL to 9,100,000 IUnits/mL (2.14 log IUnits/mL to 6.96 log IUnits/mL). Testing was performed by the [employer]/MICHEL TaqMan CMV Test ([employer] Testing performed at [facility] Current interpretive data was last revised on 17. Blood specimen (specimen) 01/15/2020 11:32 AM WIRE FRAME MAKER 01/15/2020 12:19 PM WIRE FRAME MAKER Narcisa Kilgore NP LAB MICROBIOLOGY - GENERA L ORDERABLES Final Result [facility] One [facility] [place] [address] * Type and screen (01/15/2020 11:32 AM WIRE FRAME MAKER) Pathologist [facility] ABO Rh A Positive [facility] Ursula, indirect Negative [facility] Blood specimen (specimen) 01/15/2020 11:32 AM WIRE FRAME MAKER 01/15/2020 11:49 AM WIRE FRAME MAKER Narrative [facility] - 01/15/2020 12:38 PM WIRE FRAME MAKER Has the patient had Daratumumab (Darzalex) in the past 6 months?->Unknown Narcisa Kilgore AFTER SCHOOL COUNSELOR LAB BLOOD BANK TEST ORDER SUBHA Final Result [facility] One [facility] [place] [address] * (ABNORMAL) Comprehensive metabolic panel (01/15/2020 11:32 AM WIRE FRAME MAKER) Sodium 133(L) 135 - 145 mmol/L [facility] Potassium, pl 4.3 3.3 - 4.9 mmol/L [facility] Chloride 92(L) 97 - 110 mmol/L [facility] CO2 28 22 - 32 mmol/L [facility] Anion gap 13 2 - 15 mmol/L [facility] BUN 20 8 - 25 mg/dL [facility] Creatinine 0.83 0.80 - 1.30 mg/dL [facility] Glucose 567(C) 70 - 199 mg/dL [facility] Comment: [...] 9.3 8.5 - 10.3 mg/dL [facility] Bilirubin, total 0.3 0.1 - 1.2 mg/dL [facility] Protein, pl 7.0 6.5 - 8.5 g/dL [facility] Albumin 4.2 3.5 - 5.0 g/dL [facility] Alk phos 111 40 - 130 Units/L [facility] ALT 18 7 - 55 Units/L [facility] AST 42 10 - 50 Units/L [facility] Blood specimen (specimen) 01/15/2020 11:32 AM WIRE FRAME MAKER 01/15/2020 12:26 PM WIRE FRAME MAKER Narcisa Kilgore AFTER SCHOOL COUNSELOR LAB BLOOD ORDERABLES Pilar l Result [facility] [place] [address] * (ABNORMAL) Lactate dehydrogenase (LD) (01/15/2020 11:32 AM WIRE FRAME MAKER) Lactate dehydrogenase (LDH) 296(H) 100 - 250 Units/L [facility] Blood specimen (specimen) 01/15/2020 11:32 AM WIRE FRAME MAKER 01/15/2020 12:26 PM WIRE FRAME MAKER Narcisa Kilgore AFTER SCHOOL COUNSELOR LAB BLOOD ORDERABLES Pilar l Result Performing Organization Address 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
--- OUTSIDE RECORDS SUMMARY | 2024-11-22 13:06 | XMS_ITS | Encounter Summary ---
Author Organization [facility] Address [address] [place] [address] Phone Care Team Providers Care Recreational Director Name Role Phone Kirt Lindsay DO Primary Care Provider [phone] Reason for Visit * Reason Onset Date Comments Post hosp follow up 08/19/2019 Encounter Details Date Type Department Care Team (Late st Contact Info) Description 08/19/2019 Telephone [facility] Bone Marrow Transplant [address] [facility] 7th Floor, [place] [address] Melody Bolanos V. Post hosp follow up Social History Tobacco Use Types Packs/Day Years Used Date Smoking Tobacco: Every Day Smokeless Tobacco: Never Comments:Pt not interested i n smoking cessation program Sex and Gender Information Value Date Recorded Sex Assigned at Not on file Legal Sex Male 10:48 AM PUBLIC HEALTH SANITARIAN Gender Identity Not on file Sexual Orientation Not on file documented as of this encounter Miscellaneous Notes * Telephone Encounter - Michael Delong RN - 08/19/2019 4:46 PM CDT LMOV with appointment times * Telephone Encounter - Melody Bolanos V. - 08/19/2019 4:42 PM CDT Pt calling to schedule a post hospital follow up visit. [phone] documented in this encounter Plan of Treatment Not on file documented as of this encounter Visit Diagnoses Not on filedocumented in this encounter 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 Care Teams Recreational Director Relationship Specialty Start Date End Date Kirt Lindsay DO PCP - General 05/02/17 11/22/20 documented as of this encounter
--- OUTSIDE RECORDS SUMMARY | 2024-11-22 13:06 | XMS_ITS | Encounter Summary ---
Author Organization [facility] Address [address] [place] [address] Phone Care Team Providers Care Quail Farmer Name Role Phone Kirt Lindsay DO Primary Care Provider [phone]- [phone] Josué Del Valle MD PhD Unavailable [phone] Encounter Details Date Type Department Care Team (Late st Contact Info) Description 11/27/2019 Orders Only [facility] Bone Marrow Transplant [address] [facility] 7th Floor, [place] [address] Josué Del Valle MD PhD [address] DIV IM BONE MARROW TRANSPLANT[address] [place] [address] Gbkps-znumzq-lffc disease (CMS/HCC) Social History Tobacco Use Types Packs/Day Years Used Date Smoking Tobacco: Every Day Smokeless Tobacco: Never Comments:Pt not interested i n smoking cessation program Sex and Gender Information Value Date Recorded Sex Assigned at Not on file Legal Sex Male 10:48 AM SUPERVISOR TWISTING DEPARTMENT Gender Identity Not on file Sexual Orientation Not on file documented as of this encounter Plan of Treatment Not on file documented as of this encounter Visit Diagnoses Diagnosis Ifcne-casxqz-onhh disease (HCC) documented in this encounter 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 Care Teams Quail Farmer Relationship Specialty Start Date End Date Kirt Lindsay DO PCP - General 05/02/17 11/22/20 Josué Del Valle MD PhD Medical Oncologist/[place] Medical Oncology 08/26/19 documented as of this encounter
--- OUTSIDE RECORDS SUMMARY | 2024-11-22 13:06 | XMS_ITS | Encounter Summary ---
Author Organization [facility] Address [address] [place] [address] Phone Care Team Providers Care Card Grinder Name Role Phone Kirt Lindsay DO Primary Care Provider [phone]- [phone] Reason for Visit * Reason Onset Date Comments Following up/Transfer status 08/17/2019 Encounter Details Date Type Department Care Team (Late st Contact Info) Description 08/17/2019 Telephone [facility] Bone Marrow Transplant [address] [facility] 7th Floor, [place] [address] Melody Bolanos V. Following up/Transfer status Social History Tobacco Use Types Packs/Day Years Used Date Smoking Tobacco: Every Day Smokeless Tobacco: Never Comments:Pt not interested i n smoking cessation program Sex and Gender Information Value Date Recorded Sex Assigned at Not on file Legal Sex Male 10:48 AM INSPECTOR AND UNLOADER Gender Identity Not on file Sexual Orientation Not on file documented as of this encounter Miscellaneous Notes * Telephone Encounter - Michael Delong RN - 08/17/2019 3:51 PM CDT Patient calling to coordinate a transfer from [facility], instructed to have doctor there call to transferhim to [place], patient verbalizes understanding. * Telephone Encounter - Melody Bolanos V. - 08/17/2019 2:24 PM CDT Needing to check the status about being transferred from [facility] to [place]- stated he wastalking with Kelly Goodman Requesting a call back today [phone] documented in this encounter Plan of Treatment Not on file documented as of this encounter Visit Diagnoses Not on filedocumented in this encounter 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 Care Teams Card Grinder Relationship Specialty Start Date End Date Kirt Lindsay DO PCP - General 05/02/17 11/22/20 documented as of this encounter
--- OUTSIDE RECORDS SUMMARY | 2024-11-22 13:06 | XMS_ITS | Encounter Summary ---
Author Organization [facility] Address [address] [place] [address] Phone Care Team Providers Care Tank Farm Attendant Name Role Phone Kirt Lindsay DO Primary Care Provider [phone]- [phone] Encounter Details Date Type Department Care Team (Late st Contact Info) Description 08/20/2019 Telephone [facility] Oncology [address] [facility] 7th [place] [address] [place] [address] Irina Conrad Social History Tobacco Use Types Packs/Day Years Used Date Smoking Tobacco: Every Day Smokeless Tobacco: Never Comments:Pt not interested i n smoking cessation program Sex and Gender Information Value Date Recorded Sex Assigned at Not on file Legal Sex Male 10:48 AM RADIOLOGY ASST Gender Identity Not on file Sexual Orientation Not on file documented as of this encounter Miscellaneous Notes * Telephone Encounter - Irina Conrad - 08/21/2019 3:25 PM CDT email sent to Michael: You received the Brady Jones call yesterday because he is a [facility] and he did not want the [facility] time. We are not allowed to put [...] as of this encounter Care Teams Tank Farm Attendant Relationship Specialty Start Date End Date Kirt Lindsay DO PCP - General 05/02/17 11/22/20 documented as of this encounter
--- OUTSIDE RECORDS SUMMARY | 2024-11-22 13:06 | XMS_ITS | Encounter Summary ---
Author Organization [facility] Address [address] [place] [address] Phone Care Team Providers Care Plastering Supervisor Name Role Phone Kirt Lindsay DO Primary Care Provider [phone] Encounter Details Date Type Department Care Team (Late st Contact Info) Description 08/07/2019 Orders Only [facility] Oncology [address] [facility] 7th [place] [address] [place] [address] Penny Valero, RN Type 2 diabetes mellitus with hyperosmolarity without coma, with long-term current use of insulin ([facility]/HCC) (Primary Dx) Social History Tobacco Use Types Packs/Day Years Used Date Smoking Tobacco: Every Day Smokeless Tobacco: Never Comments:Pt not interested i n smoking cessation program Sex and Gender Information Value Date Recorded Sex Assigned at Not on file Legal Sex Male 10:48 AM MED DIR Gender Identity Not on file Sexual Orientation [...] documented as of this encounter Care Teams Plastering Supervisor Relationship Specialty Start Date End Date Kirt Lindsay DO PCP - General 05/02/17 11/22/20 documented as of this encounter
--- OUTSIDE RECORDS SUMMARY | 2024-11-22 13:06 | XMS_ITS | Encounter Summary ---
Author Organization [facility] Care Team Providers Care Heat Treat Puller Name Role Phone Kirt Lindsay DO Primary Care Provider [phone] Josué Del Valle MD PhD Unavailable [phone] Encounter Details Date Type Department Care Team (Latest Contact Info) Description 11/20/2019 Travel Social History Tobacco Use Types Packs/Day Years Used Date Smoking Tobacco: Every Day Smokeless Tobacco: Never Comments:Pt not interested i n smoking cessation program Sex and Gender Information Value Date Recorded Sex Assigned at Not on file Legal Sex Male 10:48 AM FIRE EATER Gender Identity Not on file Sexual Orientation Not on file documented as of this encounter Plan of Treatment Not on file documented as of this encounter Visit Diagnoses Not on filedocumented in this encounter 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 Care Teams Heat Treat Puller Relationship Specialty Start Date End Date Kirt Lindsay DO PCP - General 05/02/17 11/22/20 Josué Del Valle MD PhD Medical Oncologist/Academic Interventionist Medical Oncology 08/26/19 documented as of this encounter
--- OUTSIDE RECORDS SUMMARY | 2024-11-22 13:06 | XMS_ITS | Encounter Summary ---
Author Organization [facility] Address [address] [place] [address] Phone Care Team Providers Care Senior Court Office Assistant Name Role Phone Kirt Lindsay DO Primary Care Provider [phone] Josué Del Valle MD PhD Unavailable [phone] Encounter Details Date Type Department Care Team (Late st Contact Info) Description 11/20/2019 10:20 AM RADAR ENGINEERING TEACHER Office Visit [facility] Bone Marrow Transplant [address] [facility] 7th Floor, [place] [address] Narcisa Kilgore NP [address] DIV IM BONE MARROW TRANSPLANT, [address] [place], [place] [id number] 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); Qlwch-rehhdg-gfss disease (CMS/HCC); H/O allogeneic bone marrow transplant (CMS/HCC) Social History Tobacco Use Types Packs/Day Years Used Date Smoking Tobacco: Every Day Smokeless Tobacco: Never Comments:Pt not interested i n smoking cessation program Sex and Gender Information Value Date Recorded Sex Assigned at Not on file Legal Sex Male 10:48 AM RADAR ENGINEERING TEACHER Gender Identity Not on file Sexual Orientation Not on file documented as of this encounter Last Filed Vital Signs Vital Sign Reading Time Taken Comments Blood Pressure 100/63 11/20/2019 10:11 AM RADAR ENGINEERING TEACHER Pulse 93 11/20/2019 10:11 AM RADAR ENGINEERING TEACHER Temperature 36.6 ??C (97.8 ??F) 11/20/2019 10:[address] Respiratory Rate 18 11/20/2019 10:11 AM RADAR ENGINEERING TEACHER Oxygen Saturation 97% 11/20/2019 10:11 AM RADAR ENGINEERING TEACHER Inhaled Oxygen Concentration - - Weight 77.4 kg (170 lb 9.6 oz) 11/20/2019 10:11 AM RADAR ENGINEERING TEACHER Height - - Body Mass Index 24.48 08/22/2019 4:10 PM CDT documented in this encounter Progress Notes * Narcisa Kilgore NP - 11/20/2019 12:00 AM CST [facility] DEPARTMENT OF MEDICINE - SECTION OF BMT & LEUKEMIA [address] [place] [address]- PHONE: FAX: PATIENT NAME: BRI LUNDY : 1965 [place]: 11/20/2019 IDENTIFYING INFORMATION: The patient has a history of AML. 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 TREATMENT HISTORY: 1. Induction with 7+3 and HiDAC consolidation x3. 2. Decitabine maintenance on the CALGB 20803 protocol. 3. Relapsed disease, status post [facility]. 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 2. 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 [...] collaboration with Josué Del Valle M.D. AKIKO/ethan R ENGINEERING TEACHER documented in this encounter Nursing Notes * Kari Mcbride RN - 11/20/2019 10:20 AM CST ROV with Cameron Kilgore ~NOW urgent UNSCHEDULED ADMIT from clinic for w/u for lung gvhd and cardiology w/u. ~AML s/p Sib Allo [id number] Bu/Cy day +[id number]. We are unsure which medications he is technically still on as he has not had routine f/u with us due to multiple social issues and health condition. He has had 2 recent admissions, August and the last at [facility] in end of September. GVHD Prophy was [...] arrived in a wheelchair on O2 by CT, Liters not documented in [facility], at 97%. Admitting to open bed on 8800 under [facility] for Cardiac w/u and eval, and w/u for pulmonary gvhd with possible Jakafi start? Would need PFT and Chest CT if able. Recent Cardiac ECHO in [facility] performed 10-14. R ENGINEERING TEACHER documented in this encounter Plan of Treatment Not on file documented as of this encounter Visit Diagnoses Diagnosis AML (acute myeloid leukemia) in remission (HCC)- Primary Lfsws-crqpan-hbfg disease (HCC) H/O allogeneic bone marrow transplant [...] as of this encounter Care Teams Senior Court Office Assistant Relationship Specialty Start Date End Date Kirt Lindsay DO PCP - General 05/02/17 11/22/20 Josué Del Valle MD PhD Medical Oncologist/Photoengraving Printer Medical Oncology 08/26/19 documented as of this encounter
--- OUTSIDE RECORDS SUMMARY | 2024-11-22 13:06 | XMS_ITS | Encounter Summary ---
Author Organization [facility] Healthcare Address [address] [place] [address] Care Team Providers Care Steward/Stewardess Dining Room Name Role Phone Kirt Lindsay DO Primary Care Provider [phone] Josué Del Valle MD PhD Unavailable [phone] Encounter Details Date Type Department Care Team (Late st Contact Info) Description 11/26/2019 Orders Only [address] [address] Josué Del Valle MD PhD [address] DIV IM BONE MARROW TRANSPLANT, [address] [place], [place] [id number] AML (acute myeloid leukemia) in remission (CMS/[facility]) (Primary Dx) Social History Tobacco Use Types Packs/Day Years Used Date Smoking Tobacco: Every Day Smokeless Tobacco: Never Comments:Pt not interested i n smoking cessation program Sex and Gender Information Value Date Recorded Sex Assigned at Not on file Legal Sex Male 10:48 AM EQUIPMENT MANAGER Gender Identity Not on file Sexual Orientation Not on file documented as of this encounter Plan of Treatment Not on file documented as of this encounter Results * (ABNORMAL) CBC with auto differential (12/04/2019 10:03 AM EQUIPMENT MANAGER) WBC 10.7(H) 3.8 - 9.8 K/cumm [facility] Comment:Testing performed by : [facility], [address] [place], [place] [phone] Hgb 12.4(L) 13.8 - 17.2 g/dL [facility] Comment:Testing performed by : [facility], [address] [place], [place] [phone] Hct 38.1(L) 40.7 - 50.3 % [facility] Comment:Testing performed by : [facility], [address] [place], [place] [phone] Plt 235 140 - 440 K/cumm [facility] Comment:Testing performed by : [place] [address] MPV 8.4 6.8 - 10.4 fL [facility] Comment:Testing performed by : [place] [address] RBC 3.61(L) 4.50 - 5.70 M/cumm [facility] Comment:Testing performed by : [facility], [address] [place], [place] [phone] MCV 105.5(H) 80.0 - 97.6 fL [facility] Comment:Testing performed by : [place] [phone] MCH 34.4(H) 26.7 - 33.7 pg [facility] Comment:Testing performed by : [place] [phone] MCHC 32.6(L) 32.7 - 35.5 g/dL [facility] Comment:Testing performed by : [place] [phone] RDW CV 15.4(H) 11.8 - 14.6 % [facility] Comment:Testing performed by : [place] [phone] NRBC abs 0.03(H) 0.00 - 0.01 K/cumm [facility] Comment:Testing performed by : [facility], [address] [place] [phone] Blood specimen (specimen) 12/04/2019 10:03 AM EQUIPMENT MANAGER 12/04/2019 10:04 AM EQUIPMENT MANAGER Josué Del Valle MD PhD LAB BLOOD ORDERABLES Fin al Result Performing Organization Address [facility] de Phone Number [facility] Department [place] [address] * Cytomegalovirus (CMV) DNA PCR, quantitative Blood (12/04/2019 9:50 AM EQUIPMENT MANAGER) Pathologist [facility] CMV DNA Not Detected [facility] Comment: Interpretive Data: The quantifiable range of this assay is 137 IUnits/mL to 9,100,000 IUnits/mL (2.14 log IUnits/mL to 6.96 log IUnits/mL). Testing was performed by the [employer] AmpliPrep/MICHEL TaqMan CMV Test ([employer] Testing performed at [facility] Current interpretive data was last revised on 17. Blood specimen (specimen) 12/04/2019 9:50 AM EQUIPMENT MANAGER 12/04/2019 12:44 PM EQUIPMENT MANAGER Josué Del Valle MD PhD LAB MICROBIOLOGY - GENER AL ORDERABLES Final Result Performing Organization Address [facility] de Phone Number [facility] Department [place] [address] * Uric acid (12/04/2019 9:49 AM EQUIPMENT MANAGER) Pathologist [facility] Uric acid 3.1 3.0 - 8.0 mg/dL [facility] Blood specimen (specimen) 12/04/2019 9:49 AM EQUIPMENT MANAGER 12/04/2019 10:31 AM EQUIPMENT MANAGER Josué Del Valle MD PhD LAB BLOOD ORDERABLES Fin al Result Performing Organization Address [facility] de Phone Number [facility] Department [place] [address] * Tacrolimus level, random (12/04/2019 9:49 AM EQUIPMENT MANAGER) Tacrolimus, random 3.9 ng/mL [facility] Comment: Interpretive Data Testing performed by liquid chromatography-tandem mass spectrometry. ??Therapeutic concentrations vary depending on type of transplanted organ and time elapsed since transplant. ??Typical trough concentrations range from 5-15 ng/mL. ??This test was developed and its performance characteristics determined by the [facility] consistent with CLIA requirements. ??This test has not been cleared or approved by the [place] Food and Drug administration. ??Current interpretive data last reviewed 2019. Blood specimen (specimen) 12/04/2019 9:49 AM EQUIPMENT MANAGER 12/04/2019 10:13 AM EQUIPMENT MANAGER Josué Del Valle MD PhD LAB BLOOD ORDERABLES Fin al Result Performing Organization Address City/[facility]/ZIP Co de Phone Number [facility] Department [place] [address] * Magnesium (12/04/2019 9:49 AM EQUIPMENT MANAGER) [facility] Magnesium 1.4 1.4 - 2.5 mg/dL [facility] Blood specimen (specimen) 12/04/2019 9:49 AM EQUIPMENT MANAGER 12/04/2019 10:31 AM EQUIPMENT MANAGER Josué Del Valle MD PhD LAB BLOOD ORDERABLES Fin al Result Performing Organization Address City/[facility]/ZIP Id de Phone Number [facility] [place] [address] * (ABNORMAL) Lactate dehydrogenase (LD) (12/04/2019 9:49 AM EQUIPMENT MANAGER) Pathologist [facility] Lactate dehydrogenase (LDH) 512(H) 100 - 250 Units/L [facility] Blood specimen (specimen) 12/04/2019 9:49 AM EQUIPMENT MANAGER 12/04/2019 10:31 AM EQUIPMENT MANAGER us Josué Del Valle MD PhD LAB BLOOD ORDERABLES Fin al Result [facility] Department [place] [address] * (ABNORMAL) Comprehensive metabolic panel (12/04/2019 9:49 AM EQUIPMENT MANAGER) Sodium 137 135 - 145 mmol/L [facility] Potassium, pl 4.6 3.3 - 4.9 mmol/L [facility] Chloride 98 97 - 110 mmol/L [facility] CO2 33(H) 22 - 32 mmol/L [facility] Anion gap 6 2 - 15 mmol/L [facility] BUN 13 8 - 25 mg/dL [facility] Creatinine 0.91 0.80 - 1.30 mg/dL [facility] Glucose 426(H) 70 - 199 mg/dL [facility] Comment: Interpretive Data Fasting glucose [...] Calcium 9.7 8.5 - 10.3 mg/dL [facility] Bilirubin, total 0.3 0.1 - 1.2 mg/dL [facility] Protein, pl 6.8 6.5 - 8.5 g/dL [facility] Albumin 3.6 3.5 - 5.0 g/dL [facility] Alk phos 183(H) 40 - 130 Units/L [facility] ALT 67(H) 7 - 55 Units/L [facility] AST 49 10 - 50 Units/L [facility] Blood specimen (specimen) 12/04/2019 9:49 AM EQUIPMENT MANAGER 12/04/2019 10:31 AM EQUIPMENT MANAGER us Josué Del Valle MD PhD LAB BLOOD ORDERABLES Fin al Result [facility] Department [place] [address] documented in this encounter Visit Diagnoses Diagnosis AML (acute myeloid leukemia) in remission (HCC)- Primary documented in this encounter 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
--- OUTSIDE RECORDS SUMMARY | 2024-11-22 13:06 | XMS_ITS | Encounter Summary ---
Author Organization [facility] Healthcare Address [address] [place] [address] Care Team Providers Care Fastener Sewing Machine Operator Name Role Phone Kirt Lindsay DO Primary Care Provider [phone] Josué Del Valle MD PhD Unavailable [phone] Encounter Details Date Type Department Care Team (Late st Contact Info) Description 11/27/2019 Orders Only [facility] [address] [place] [address] Martín Birminghma, [facility] Social History Tobacco Use Types Packs/Day Years Used Date Smoking Tobacco: Every Day Smokeless Tobacco: Never Comments:Pt not interested i n smoking cessation program Sex and Gender Information Value Date Recorded Sex Assigned at Not on file Legal Sex Male 10:48 AM SUPERVISOR SLATE SPLITTING Gender Identity Not on file Sexual Orientation Not on file documented as of this encounter Plan of Treatment Not on file documented as of this encounter Visit Diagnoses Not on filedocumented in this encounter 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
--- OUTSIDE RECORDS SUMMARY | 2024-11-22 13:06 | XMS_ITS | Encounter Summary ---
Author Organization [facility] Healthcare Address [address] [place] [address] Care Team Providers Care Transfer And Line Up Worker Name Role Phone Kirt Lindsay DO Primary Care Provider [phone] Josué Del Valle MD PhD Unavailable [phone] Encounter Details Date Type Department Care Team (Latest Contact Info) Description 11/20/2019 11:32 AM ORACLE APPLICATIONS DEVELOPER - 11/28/2019 1:31 PM ORACLE APPLICATIONS DEVELOPER Hospital Encounter [address] [id number] Josué Del Valle MD PhD [address] [place] [facility] [employer], [address] [place] [address] 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); Vitamin D deficiency; Type 2 diabetes mellitus with hyperosmolarity without coma, with long-term current use of insulin (CMS/HCC); Kbnrv-avebsu-adty disease (CMS/HCC); Type 2 diabetes mellitus with [...] file Legal Sex Male 10:48 AM ORACLE APPLICATIONS DEVELOPER Gender Identity Not on file Sexual Orientation Not on file documented as of this encounter Last Filed Vital Signs Vital Sign Reading Time Taken Comments Blood Pressure 123/70 11/28/2019 11:05 AM ORACLE APPLICATIONS DEVELOPER Pulse 72 11/28/2019 11:05 AM ORACLE APPLICATIONS DEVELOPER Temperature 36.9 ??C (98.4 ??F) 11/28/2019 11:[address] Respiratory Rate 18 11/28/2019 11:05 AM ORACLE APPLICATIONS DEVELOPER Oxygen Saturation 100% 11/28/2019 11:05 AM ORACLE APPLICATIONS DEVELOPER Inhaled Oxygen Concentration - - Weight 79.8 kg (176 lb) 11/26/2019 7:48 PM ORACLE APPLICATIONS DEVELOPER Height 177.8 cm (5' 10 ) 11/20/2019 11:58 AM ORACLE APPLICATIONS DEVELOPER Body Mass Index 25.25 11/20/2019 11:58 AM ORACLE APPLICATIONS DEVELOPER documented in this encounter Discharge Diagnoses Diagnosis Complications of stem cell transplant ([facility]) - COMPLICATIONS OF STEM CELL TRANSPLANT Pneumonia due to Streptococcus pneumoniae (CMS/HCC) (HCC) - PNEUMONIA DUE TO STREPTOCOCCUS PNEUMONIAE Pneumonia due to unspecified Streptococcus Acute on chronic diastolic (congestive) heart failure (HCC) - ACUTE ON CHRONIC DIASTOLIC (CONGESTIVE) HEART FAILURE Pneumonitis due to inhalation of food and vomit (CMS/HCC) (HCC) - PNEUMONITIS DUE TO INHALATION OF FOOD AND VOMIT Acute on chronic qmwev-owgijg-hipg disease (HCC) - ACUTE ON CHRONIC WVHVX-GKPOAY-JTSG DISEASE Acute on chronic nuhnz-fbcqdx-cmif disease Acute myeloblastic leukemia, in remission (HCC) [...] or chemical induced diabetes mellitus with hyperglycemia ([facility]) - DRUG OR CHEMICAL INDUCED DIABETES MELLITUS WITH HYPERGLYCEMIA 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 ([facility]) - DRUG OR CHEMICAL INDUCED DIABETES MELLITUS WITH NEUROLOGICAL COMPLICATIONS WITH DIABETIC POLYNEUROPA Adverse effect of glucocorticoids and synthetic analogues, subsequent encounter - ADVERSE EFFECT OF GLUCOCORTICOIDS AND SYNTHETIC ANALOGUES, SUBSEQUENT ENCOUNTER 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) - 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 AUTOMATIC (CURRENT) USE OF INSULIN Other specified disorders [...] (HCC) - OTHER SPECIFIED INTERSTITIAL PULMONARY DISEASES custodial (current) use of 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 - ALF (CURRENT) USE OF ANTICOAGULANTS Long-term (current) use of 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 - ALF (CURRENT) USE OF INHALED STEROIDS Other superintendent container 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) drug therapy - OTHER ALF (CURRENT) DRUG THERAPY Dependence on supplemental oxygen - DEPENDENCE ON SUPPLEMENTAL OXYGEN custodial (current) use of antibiotics - KNITTING 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 AUTOMATIC (CURRENT) USE OF ANTIBIOTICS custodial (current) use of systemic steroids - KNITTING 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 AUTOMATIC (CURRENT) USE OF SYSTEMIC STEROIDS Personal history of pulmonary embolism - PERSONAL HISTORY OF PULMONARY EMBOLISM Personal history of other venous thrombosis and embolism - PERSONAL HISTORY OF OTHER VENOUS THROMBOSIS AND EMBOLISM Other nonmedicinal substance allergy status - OTHER NONMEDICINAL SUBSTANCE ALLERGY STATUS documented in this encounter Discharge Summaries * Iza Gordon, AUTO EMISSIONS TECHNICIAN - 11/27/2019 3:18 PM CST Inpatient Discharge Summary BRIEF OVERVIEW Admitting Provider: Josué Del Valle MD PhD Discharge Provider: Josué Del Valle MD PhD Primary Care Physician at Discharge: Kirt Lindsay DO [phone] Admission Date: 11/20/2019 Discharge Date: 11/28/2019 Admission Location: [facility] Primary Discharge Diagnosis: GVHD Secondary Discharge Diagnosis: Osteopenia Bkcnp-elefai-ivfe disease ([facility]) AML (acute myeloid leukemia) in remission ([facility]) Type 2 diabetes mellitus ([facility]) Pure hypercholesterolemia Vitamin D deficiency COPD, severe ([facility]/HCC) DVT (deep venous thrombosis) ([facility]) Shortness of breath CHF (congestive heart failure) ([facility]) Peripheral neuropathy Tobacco abuse Pneumonia DETAILS OF HOSPITAL STAY Presenting Problem/History of Present Illness: Per HPI from 11/20/19: 54 y/o male with a h/o 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 He was recently discharged from [facility] last week after having an episode of [...] Continue immunosuppresives. - Pulm toilet? COPD, severe ([facility]) Continue inhalers ?? Circulatory CHF (congestive heart failure) ([facility]) With diastolic dysfunction, new diagnosis. -Continue Lasix. -(11/23) Rpt TTE showed EF 65%, unable to measure PA pressure, normal diastolic function. ?? DVT (deep venous thrombosis) ([facility]) Continue xarelto ?? Musculoskeletal Osteopenia Continue home vitamin D and dietary calcium ?? Endocrine/Metabolic Pure hypercholesterolemia Continue statin ?? Type 2 diabetes mellitus ([facility]) On basaglar 30 units AM and novolog [...] consolidation x3??s/p decitabine maintenance on the CALGB 24178 protocol. -??Relapsed disease,??status post an allogeneic transplant with busulfan and Cytoxan on the AMD allogeneic study with his sister, 08/27 match; with day 0 on 11/09/2009.?? - Currently in remission. Follows with Dr. Del Valle - On tacro, cellcept - OI ppx: Cont acyclovir. Added vori and bactrim (pt stated he was no longer taking at home). ?? Immune Yzprp-pjkhvj-cocz disease (CMS/HCC) Continue cellcept 1 g BID [...] before bed ?? Call Dr. Gibson (your commercial sales manager) on Saturday to check in ([phone]) Call right away if you have: * [...] and ask to have the BMT Fellow Orange Picker Machine Operator paged for you. Saturday through Saturday, 8 [...] 5 mg tablet Commonly known as: 2018--175/INCB [id number] Take 1 tablet (5 mg total) by [...] Trelegy Ellipta 100-62.5-25 mcg inhaler Generic drug: ggzvwrrkvmv-bexdwbxer-mmhhgjwg INHALE 1 PUFF BY INHALATION ROUTE ONCE [...] ONC LAB 12/04/2019 9:40 AM Narcisa Kilgore, AUTO EMISSIONS TECHNICIAN BMT CAM 7 BMT Cosigned by Josué Del Valle MD PhD at 11/28/2019 1:04 PM ORACLE APPLICATIONS DEVELOPER LE APPLICATIONS DEVELOPER LE APPLICATIONS DEVELOPER Associated attestation - Josué Del Valle MD PhD - 11/28/2019 1:04 PM ORACLE APPLICATIONS DEVELOPER I have seen and examined the patient on 11/28/19. I agree with the findings and plan of care as documented in the resident/fellow's note. oJsué Del Valle MD PhD documented in this encounter Discharge Instructions * Discharge Instructions* Mellisa Llamas MD - 11/28/2019 12:40 PM ORACLE APPLICATIONS DEVELOPER Your insulin doses were increased while you [...] before bed ?? Call Dr. Gibson (your commercial sales manager) on Saturday to check in ([phone]) Call right away if you have: * [...] and ask to have the BMT Fellow Orange Picker Machine Operator paged for you. Saturday through Saturday, 8 [...] date and time indicated on your instructions. LE APPLICATIONS DEVELOPER documented in this encounter Medications at Time [...] with long-term current use of insulin ([facility]),Quuen-zlxowg-folh disease (HCC),H/O allogeneic bone marrow transplant ([facility]),Pure hypercholesterolemia Take 1 tablet (40 mg total) [...] with long-term current use of insulin ([facility]) Inject 40 Units under the skin nightly 13.5 mL 11/28/19 020 blood glucose diagnostic stripIndications:Type 2 diabetes mellitus with hyperosmolarity without coma, with long-term current use of insulin ([facility]) Check blood sugar tid 100 each 4 07/01/20 blood-glucose meter miscIndications:Type 2 diabetes mellitus with hyperosmolarity without coma, with long-term current use of insulin ([facility]) 1 Device 3 (three) times a day [...] with long-term current use of insulin ([facility]) Take 1 tablet (20 mg total) by mouth daily As needed. 30 tablet 08/07/20 19 020 gabapentin (NEURONTIN) 300 mg capsuleIndications:Type 2 diabetes mellitus with hyperosmolarity without coma, with long-term current use of insulin ([facility]) TAKE 1 PO 4 times daily 11/26/1907 [...] per tabletIndications:AML (acute myeloid leukemia) in remission (HCC),Biltu-bihjdx-bcln disease (HCC),H/O allogeneic bone marrow transplant (HCC) Take 1 tablet by mouth every 6 (six) hours as needed 0 10/17/20 19 021 INV-[facility] ruxolitinib (2018-05-175/ELLENB [id number]) 5 mg tabletIndications: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 (HCC) Take 1 tablet (5 mg total) by mouth 2 (two) times a day Take at about the same time each day with an 8oz glass of water. Doses may be taken without regard to food. 11/27/19 20 021 montelukast (SINGULAIR) 10 mg tabletIndications:AML (acute myeloid leukemia) in remission (HCC),Dgmgs-atwksm-rktx disease (HCC) Take 1 tablet (10 mg total) by mouth nightly. 30 tablet 11 12/17/19 19 020 mycophenolate mofetil (CELLCEPT) 500 mg tabletIndications:AML (acute myeloid leukemia) in remission (HCC),Ngytn-ketngo-gazp disease (HCC) TAKE 2 TABLETS BY MOUTH [...] mg tabletIndications:AML (acute myeloid leukemia) in remission (HCC),Wmmnh-omdjss-dxkj disease (HCC),H/O allogeneic bone marrow transplant (HCC) TAKE 1 TABLET BY MOUTH EVERY 6 HOURS NEEDED FOR PAIN (MAX OF 3 TABLETS PER DAY) 0 10/08/20 19 TRELEGY ELLIPTA 100-62.5-25 mcg inhalerIndications:AML (acute myeloid leukemia) in remission (HCC),Thizo-inohvc-kads disease (HCC),H/O allogeneic bone marrow transplant (HCC) [...] 3 0 11/28/19 20 INV-[facility] ruxolitinib (2018-05-175/INCB [id number]) 5 mg tabletIndications:Gr qyf-gflskc-euth disease (HCC) Take 1 tablet (5 mg [...] Destination Discharge to home or self care [facility] documented in this encounter Progress Notes * Kiarra Spaulding MD - 11/28/2019 10:29 AM CST Endocrine Diabetes Inpatient Follow Up 11/28/2019 Bri Jones [id number] Kirt Lindsay, DO Admit Date: 11/20/2019 Length [...] Carbohydrate Diet effective now Question Answer Comment ([facility]) Diet type Restricted Diabetic: Consistent Carbohydrate 11/23/19 [...] 55 08/07/2019 Assessment/Plan CHF (congestive heart failure) ([facility]) Assessment & Plan Closely monitor blood sugar to avoid hypoglycemia Vitamin D deficiency Assessment & Plan Last vitamin-D level low at 16. Continue vitamin D2 24397 units weekly and vitamin D3 2000 units daily Pure hypercholesterolemia Assessment & Plan On atorvastatin 40 mg daily Type 2 diabetes mellitus ([facility]) Assessment & Plan Patient has uncontrolled type [...] sugars and any need for insulindose adjustments, Frvqv-zleopx-fuka disease ([facility]) Assessment & Plan Prednisone decreased to 10 mg daily Thank you for allowing us to participate in the care of this patient. Recommendations have been discussed with the primary team. We will continue to follow. Please call the Diabetes Consult with any questions. Kiarra Spaulding MD Endocrinology Fellow Cosigned by Ave Montejo MD at 11/29/2019 11:50 PM ORACLE APPLICATIONS DEVELOPER LE APPLICATIONS DEVELOPER LE APPLICATIONS DEVELOPER Associated attestation - Ave Montejo MD - 11/29/2019 11:50 PM ORACLE APPLICATIONS DEVELOPER I have seen and examined the patient [...] Plans for Bri Jones Oncology Chemotherapy Treatment: [id number] - [facility] - Heme/BMT - INCB [id number] - EAP Ruxolitinib for GVHD Current day: [...] meals insulin NPH, 15 Units, subcutaneous, Daily [facility] ruxolitinib, 5 mg, oral, BID montelukast, 10 [...] consolidation x3??s/p decitabine maintenance on the CALGB 35019 protocol. -??Relapsed disease,??status post an allogeneic transplant [...] Walking O2 assessment Type 2 diabetes mellitus ([facility]) Assessment & Plan On basaglar 30 units [...] Plan Continue gabapentin CHF (congestive heart failure) ([facility]) Assessment & Plan With diastolic dysfunction, new diagnosis. -Continue Lasix. -(11/23) Rpt TTE showed EF 65%, unable to measure PA pressure, normal diastolic function. DVT (deep venous thrombosis) ([facility]) Assessment & Plan Continue xarelto COPD, severe ([facility]) Assessment & Plan Continue inhalers Pure hypercholesterolemia Assessment & Plan Continue statin Heoxk-cxvuet-jhpx disease ([facility]) Assessment & Plan Continue cellcept 1 g [...] Valle MD PhD at 11/28/2019 1:21 PM ORACLE APPLICATIONS DEVELOPER LE APPLICATIONS DEVELOPER LE APPLICATIONS DEVELOPER Associated attestation - Josué Del Valle MD PhD - 11/28/2019 1:21 PM ORACLE APPLICATIONS DEVELOPER I have seen and examined the patient on 11/28/19. I agree with the findings and plan of care as documented in the resident/fellow's note. Josué Del Valle MD PhD * Leni Potter MD - 11/27/2019 1:35 PM CST Endocrine Diabetes Inpatient Follow Up 11/27/2019 Bri Jones [id number] Kirt Lindsay DO Admit Date: 11/20/2019 Length [...] 55 08/07/2019 Assessment/Plan CHF (congestive heart failure) ([facility]) Assessment & Plan Closely monitor blood sugar to avoid hypoglycemia Vitamin D deficiency Assessment & Plan Last vitamin-D level low at 16. Continue vitamin D2 59265 units weekly and vitamin D3 2000 units daily Pure hypercholesterolemia Assessment & Plan On atorvastatin 40 mg daily Type 2 diabetes mellitus ([facility]) Assessment & Plan Patient has uncontrolled type [...] Dr. Elizondo and diabetes education on 11/27/19. Ysmcw-pgcrub-ribk disease (CMS/HCC) Assessment & Plan Prednisone decreased to 20 mg daily Leni Potter MD Endocrinology Fellow, PGY-5 Cosigned by Tyae Steward MD at 11/27/2019 2:44 PM ORACLE APPLICATIONS DEVELOPER LE APPLICATIONS DEVELOPER LE APPLICATIONS DEVELOPER Associated attestation - Taye Steward MD - 11/27/2019 2:44 PM ORACLE APPLICATIONS DEVELOPER I have seen and examined the patient [...] of Weight Used for Estimated Protein : [place] Protein Needs Based on g/k.2 Total Protein Estimated Needs (gm): 90.36 Kcal/kg Type of Weight Used for Estimated Kcals: [place] Kcal/k Total Kcal/kg Estimated Needs : 2259 [...] heparin flush (porcine), 5 mL, intra-catheter, Q12H [facility] insulin glargine, 40 Units, subcutaneous, Nightly insulin lispro, 1-4 Units, subcutaneous, Nightly insulin lispro, 1-7 Units, subcutaneous, TID with meals insulin lispro, 15 Units, subcutaneous, TID with meals insulin NPH, 15 Units, subcutaneous, Daily [facility] ruxolitinib, 5 mg, oral, BID montelukast, 10 mg, oral, Nightly mycophenolate mofetil, 1,000 mg, oral, BID nicotine, 1 patch, transdermal, Daily ofloxacin, 1 drop, each eye, BID predniSONE, 20 mg, oral, Daily rivaroxaban, 20 mg, oral, Daily with dinner ruxolitinib, 5 mg, oral, BID sodium chloride 0.9 %, 30 mL, swish & spit, QID sodium chloride 0.9%, 0.5-20 mL, intra-catheter, Q8H [facility] sulfamethoxazole-trimethoprim, 160 mg of trimethoprim, oral, 2 times per day on Sat tacrolimus, 0.5 mg, oral, Every other day tiotropium, 1 capsule, inhalation, Daily voriCONAZOLE, 200 mg, oral, BID Continuous Infusions: sodium chloride 0.9%, 30 mL/hr, Last Rate: 30 mL/hr (11/24/19 1723) sodium chloride 0.9%, 0-250 mL PRN Meds: ??? acetaminophen ??? acetaminophen ??? albuterol ??? albuterol ? ? aluminum & magnesium bbywceolj-tjlupfyuton-dzceedofsozrzgw-lidocaine (MAGIC MOUTHWASH) suspension 1-1-1 ??? bacitracin-polymyxin B [...] Carbohydrate Diet effective now Question Answer Comment ([facility]) Diet type Restricted Diabetic: Consistent Carbohydrate 11/23/19 [...] intake, Weight changes Stefany Cerna RDN, LD LE APPLICATIONS DEVELOPER * Iza Gordon NP - 11/27/2019 7:55 [...] Plans for Robert Bri Oncology Chemotherapy Treatment: [id number] - [facility] - Heme/BMT - INCB [id number] - EAP Ruxolitinib for GVHD Current day: [...] toilet?? - Walking O2 assessment COPD, severe ([facility]) Continue inhalers Circulatory CHF (congestive heart failure) ([facility]) With diastolic dysfunction, new diagnosis. -Continue Lasix. -(11/23) Rpt TTE showed EF 65%, unable to measure PA pressure, normal diastolic function. DVT (deep venous thrombosis) ([facility]) Continue xarelto Musculoskeletal Osteopenia Continue home vitamin D and dietary calcium Endocrine/Metabolic Pure hypercholesterolemia Continue statin Type 2 diabetes mellitus ([facility]) On basaglar 30 units AM and novolog [...] consolidation x3??s/p decitabine maintenance on the CALGB 72158 protocol. -??Relapsed disease,??status post an allogeneic transplant with busulfan and Cytoxan on the AMD allogeneic study with his sister, 08/27 match; with day 0 on 11/09/2009.?? - Currently in remission. Follows with Dr. Del Valle - On tacro, cellcept - OI ppx: Cont acyclovir. Added vori and bactrim (pt stated he was no longer taking at home). Immune Easxw-uerrwv-cgyy disease (CMS/HCC) Continue cellcept 1 g BID [...] Tobacco abuse Nicotine patch Iza Gordon NP [phone] Cosigned by Josué Del Valle MD PhD at 11/27/2019 1:26 PM ORACLE APPLICATIONS DEVELOPER LE APPLICATIONS DEVELOPER LE APPLICATIONS DEVELOPER Associated attestation - Josué Del Valle MD PhD - 11/27/2019 1:26 PM ORACLE APPLICATIONS DEVELOPER I have seen and examined the patient [...] Diabetes Inpatient Follow Up 11/26/2019 Bri Jones [id number] Kirt Lindsay DO Admit Date: 11/20/2019 Length [...] 55 08/07/2019 Assessment/Plan CHF (congestive heart failure) ([facility]) Assessment & Plan Closely monitor blood sugar to avoid hypoglycemia Vitamin D deficiency Assessment & Plan Last vitamin-D level low at 16. Continue vitamin D2 87512 units weekly and vitamin D3 2000 units daily Pure hypercholesterolemia Assessment & Plan On atorvastatin 40 mg daily Type 2 diabetes mellitus ([facility]) Assessment & Plan Patient has uncontrolled type [...] basal/bolus, doses pending. Follows with endocrinology here. Qbpos-tailce-dzcy disease ([facility]) Assessment & Plan Plan to taper prednisone to 20 mg daily Leni Potter MD Endocrinology Fellow, PGY-5 Cosigned by Taye Steward MD at 11/27/2019 9:07 AM ORACLE APPLICATIONS DEVELOPER LE APPLICATIONS DEVELOPER LE APPLICATIONS DEVELOPER Associated attestation - Taye Steward MD - 11/27/2019 9:07 AM ORACLE APPLICATIONS DEVELOPER I have seen and examined the patient [...] 400 ft with 1 stop, pt SOB. LE APPLICATIONS DEVELOPER * Iza Gordon NP - 11/26/2019 8:43 [...] Continue immunosuppresives. - Pulm toilet?? COPD, severe ([facility]) Continue inhalers Circulatory CHF (congestive heart failure) ([facility]) With diastolic dysfunction, new diagnosis. -Continue Lasix. -(11/23) Rpt TTE showed EF 65%, unable to measure PA pressure, normal diastolic function. DVT (deep venous thrombosis) ([facility]) Continue xarelto Musculoskeletal Osteopenia Continue home vitamin [...] consolidation x3??s/p decitabine maintenance on the CALGB 39585 protocol. -??Relapsed disease,??status post an allogeneic transplant with busulfan and Cytoxan on the AMD allogeneic study with his sister, 08/27 match; with day 0 on 11/09/2009.?? - Currently in remission. Follows with Dr. Del Valle - On tacro, cellcept - OI ppx: Cont acyclovir. Added vori and bactrim (pt stated he was no longer taking at home). Immune Xnrct-pfpwvk-bcxo disease (CMS/HCC) Continue cellcept 1 g BID [...] Tobacco abuse Nicotine patch Iza Gordon NP [phone] Cosigned by Josué Del Valle MD PhD at 11/26/2019 5:34 PM ORACLE APPLICATIONS DEVELOPER LE APPLICATIONS DEVELOPER LE APPLICATIONS DEVELOPER Associated attestation - Josué Del Valle MD PhD - 11/26/2019 5:34 PM ORACLE APPLICATIONS DEVELOPER I have seen and examined the patient [...] Diabetes Inpatient Follow Up 11/25/2019 Bri Jones [id number] Kirt Lindsay DO Admit Date: 11/20/2019 Length [...] EKG/Min 71 BPM Atrial Rate 71 BPM ND-Interval (MSEC) 102 ms QRS-Interval (MSEC) 102 ms QT-Interval (MSEC) 374 ms QTc 406 ms P Rousseau 17 degrees R Rousseau 73 degrees T Rousseau 58 degrees Diagnosis Sinus rhythm with short ND Otherwise normal ECG When compared with ECG [...] 55 08/07/2019 Assessment/Plan CHF (congestive heart failure) ([facility]) Assessment & Plan Closely monitor blood sugar to avoid hypoglycemia Vitamin D deficiency Assessment & Plan Last vitamin-D level low at 16. Continue vitamin D2 44091 units weekly and vitamin D3 2000 units daily Pure hypercholesterolemia Assessment & Plan On atorvastatin 40 mg daily Type 2 diabetes mellitus ([facility]) Assessment & Plan Patient has uncontrolled type [...] basal/bolus, doses pending. Follows with endocrinology here. Ycztw-uabxto-ktyr disease (CMS/HCC) Assessment & Plan He is on prednisone 20 mg BID Leni Potter MD Endocrinology Fellow, PGY-5 Cosigned by Taye Steward MD at 11/25/2019 7:33 PM ORACLE APPLICATIONS DEVELOPER LE APPLICATIONS DEVELOPER LE APPLICATIONS DEVELOPER Associated attestation - Taye Steward MD - 11/25/2019 7:33 PM ORACLE APPLICATIONS DEVELOPER I have seen and examined the patient [...] heparin flush (porcine), 5 mL, intra-catheter, Q12H [facility] insulin glargine, 40 Units, subcutaneous, Nightly [...] sodium chloride 0.9%, 0.5-20 mL, intra-catheter, Q8H [facility] sulfamethoxazole-trimethoprim, 160 mg of trimethoprim, oral, 2 times per day on Sat tacrolimus, 0.5 mg, oral, Every other day tiotropium, 1 capsule, inhalation, Daily vancomycin, 1,500 mg, intravenous, Q24H voriCONAZOLE, 200 mg, oral, BID Continuous Infusions:sodium chloride 0.9%, 30 mL/hr, Last Rate: 30 mL/hr (11/24/19 3543) sodium chloride 0.9%, 0-250 mL PRN Meds:.??? acetaminophen ??? acetaminophen ??? albuterol ??? albuterol ? ? aluminum & magnesium vkwqwhoak-aawhlrzyonw-rmbnoukwhyxnicn-lidocaine (MAGIC MOUTHWASH) suspension 1-1-1 ??? bacitracin-polymyxin B [...] by Marisa Vázquez (RN) on 11/24/2019 12:59:13 ORACLE APPLICATIONS DEVELOPER to ec. Credentials RN Called By ec [...] ) - Continue immunosuppresives. - Pulm toilet?? Cbvdz-hwulvr-xnto disease ([facility]) Assessment & Plan Continue cellcept 1 g [...] 3x/weekly AML (acute myeloid leukemia) in remission ([facility] [place]) Assessment & Plan Induction with 7+3 and HiDAC consolidation x3??s/p decitabine maintenance on the CALGB 01433 protocol. -??Relapsed disease,??status post an allogeneic transplant [...] Plan Continue gabapentin CHF (congestive heart failure) ([facility]) Assessment & Plan With diastolic dysfunction, new diagnosis. -Continue Lasix. -(11/23) Rpt TTE showed EF 65%, unable to measure PA pressure, normal diastolic function. DVT (deep venous thrombosis) ([facility]) Assessment & Plan Continue xarelto COPD, severe ([facility]) Assessment & Plan Continue inhalers Pure hypercholesterolemia Assessment & Plan Continue statin Type 2 diabetes mellitus ([facility]) Assessment & Plan On basaglar 30 units [...] Valle MD PhD at 11/25/2019 7:11 PM ORACLE APPLICATIONS DEVELOPER LE APPLICATIONS DEVELOPER LE APPLICATIONS DEVELOPER Associated attestation - Josué Del Valle MD PhD - 11/25/2019 7:11 PM ORACLE APPLICATIONS DEVELOPER I have seen and examined the patient [...] Diabetes Inpatient Follow Up 11/24/2019 Bri Jones [id number] Kirt Lindsay DO Admit Date: 11/20/2019 Length [...] by Marisa Vázquez (RN) on 11/24/2019 12:59:13 ORACLE APPLICATIONS DEVELOPER to ec. Credentials RN Called By ec [...] 55 08/07/2019 Assessment/Plan CHF (congestive heart failure) ([facility] [place]) Assessment & Plan Closely monitor blood sugar to avoid hypoglycemia Vitamin D deficiency Assessment & Plan Last vitamin-D level low at 16. Continue vitamin D2 43018 units weekly and vitamin D3 2000 units daily Pure hypercholesterolemia Assessment & Plan On atorvastatin 40 mg daily Type 2 diabetes mellitus ([facility] [place]) Assessment & Plan Patient has uncontrolled type [...] basal/bolus, doses pending. Follows with endocrinology here. Kvxkm-byegma-muvf disease ([facility] [place]) Assessment & Plan He is on prednisone 20 mg BID Leni Potter MD Endocrinology Fellow, PGY-5 Cosigned by José Niño MD at 11/24/2019 5:09 PM ORACLE APPLICATIONS DEVELOPER LE APPLICATIONS DEVELOPER LE APPLICATIONS DEVELOPER Associated attestation - José Niño MD - 11/24/2019 5:09 PM ORACLE APPLICATIONS DEVELOPER I have seen and examined the patient on 11/24/19. I agree with the findings and plan of care as documented in the resident's/fellow's note. * Rogers Lagos RN - 11/24/2019 2:13 PM CST 11/24/19 1409 Information Information Obtained From Patient Prior to Admission Support System Friends/neighbors Support system contact info (name, phone, availablity) roommate Lissy [phone] Durable Medical Equipment Walker (wheeled);Cane (single prong) Living Arrangements Friends Type of Residence Private residence Financial Resource Income SSD/SSI Potential Discharge Needs Anticipated discharge level of care Private residence Communications Fiduciary Responsibility Patient/Designated decision maker was informed of [facility] fiduciary relationship as necessary Chart reviewed [...] are in agreement with the aftercare plan. LE APPLICATIONS DEVELOPER LE APPLICATIONS DEVELOPER * Rogers Lagos RN - 11/24/2019 2:11 PM CST 11/24/19 1409 Information Information Obtained From Patient Prior to Admission Support System Friends/neighbors Support system contact info (name, phone, availablity) roommate Lissy [phone] Durable Medical Equipment Walker (wheeled);Cane (single prong) Living Arrangements Friends Type of Residence Private residence Financial Resource Income SSD/SSI Potential Discharge Needs Anticipated discharge level of care Private residence Communications Fiduciary Responsibility Patient/Designated decision maker was informed of [facility] fiduciary relationship as necessary LE APPLICATIONS DEVELOPER * Iza Gordon NP - 11/24/2019 7:57 AM CST BMT Progress Note BMT Day: Chief Complaint: Patient is a 54 y.o. male with chief complaint of shortness of breath. Interval History: Reports continued cough, shortness of breath. Remains on 3L O2. Continued IV antibiotics for pneumonia. Otherwise VSS, afebrile. [facility]. Active Treatment & Therapy Plans for [...] heparin flush (porcine), 5 mL, intra-catheter, Q12H [facility] insulin glargine, 40 Units, subcutaneous, Nightly [...] sodium chloride 0.9%, 0.5-20 mL, intra-catheter, Q8H [facility] sulfamethoxazole-trimethoprim, 160 mg of trimethoprim, oral, [...] Continue immunosuppresives. - Pulm toilet?? COPD, severe ([facility] [place]) Continue inhalers Circulatory CHF (congestive heart failure) ([facility] [place]) With diastolic dysfunction, new diagnosis. -Continue Lasix. -(11/23) Rpt TTE showed EF 65%, unable to measure PA pressure, normal diastolic function. DVT (deep venous thrombosis) ([facility] [place]) Continue xarelto Musculoskeletal Osteopenia Continue home vitamin D and dietary calcium Endocrine/Metabolic Pure hypercholesterolemia Continue statin Type 2 diabetes mellitus ([facility] [place]) On basaglar 30 units AM and novolog [...] Hematologic AML (acute myeloid leukemia) in remission ([facility] [place]) Induction with 7+3 and HiDAC consolidation x3??s/p decitabine maintenance on the CALGB 92867 protocol. -??Relapsed disease,??status post an allogeneic transplant with busulfan and Cytoxan on the AMD allogeneic study with his sister, 08/27 match; with day 0 on 11/09/2009.?? - Currently in remission. Follows with Dr. Del Valle - On tacro, cellcept - OI ppx: Cont acyclovir. Added vori and bactrim (pt stated he was no longer taking at home). Immune Yyyur-ievtgb-taiu disease ([facility] [place]) Continue cellcept 1 g BID and tacrolimus??0.5 [...] Tobacco abuse Nicotine patch Iza Gordon NP [phone] Cosigned by Josué Del Valle MD PhD at 11/24/2019 3:18 PM ORACLE APPLICATIONS DEVELOPER LE APPLICATIONS DEVELOPER LE APPLICATIONS DEVELOPER Associated attestation - Josué Del Valle MD PhD - 11/24/2019 3:18 PM ORACLE APPLICATIONS DEVELOPER I have seen and examined the patient [...] (porcine), 5 mL, intra-catheter, Q12H ROSA MARIA montelukast, 10 mg, oral, Nightly mycophenolate mofetil, [...] GVHD problem. - Pulm toilet?? COPD, severe ([facility] [place]) Continue inhalers Circulatory CHF (congestive heart failure) ([facility] [place]) With diastolic dysfunction, new diagnosis. -Continue Lasix. Rpt TTE DVT (deep venous thrombosis) ([facility] [place]) Continue xarelto Musculoskeletal Osteopenia Continue home vitamin D and dietary calcium Endocrine/Metabolic Pure hypercholesterolemia Continue statin Type 2 diabetes mellitus ([facility] [place]) On basaglar 30 units AM and novolog 10 units TID with meals and SSI at home. No longer taking metformin at home - BG >400 on admit (pt stated he did not take his AM insulin). - Insulin gtt started 11/23. Endocrine consulted. - Hgb A1C 13 on admit. Hematologic AML (acute myeloid leukemia) in remission ([facility]) -??Induction with 7+3 and HiDAC consolidation x3??s/p decitabine maintenance on the CALGB 67332 protocol. -??Relapsed disease,??status post an allogeneic transplant with busulfan and Cytoxan on the AMD allogeneic study with his sister, 08/27 match; with day 0 on 11/09/2009.?? - Currently in remission. Follows with Dr. Del Valle - On tacro, cellcept - OI ppx: Cont acyclovir. Add vori given remains on immunosuppressives. Add bactrim (pt stated he was no longer taking). Immune Gdkuh-fuhfdw-vwcy disease (CMS/HCC) Continue cellcept 1 g BID [...] Tobacco abuse Nicotine patch Iza Gordon NP [phone] Cosigned by Josué Del Valle MD PhD at 11/23/2019 7:01 PM ORACLE APPLICATIONS DEVELOPER LE APPLICATIONS DEVELOPER LE APPLICATIONS DEVELOPER Associated attestation - Josué Del Valle MD PhD - 11/23/2019 7:01 PM ORACLE APPLICATIONS DEVELOPER I have seen and examined the patient [...] Gordon, ARMEN ? ? aluminum & magnesium lvuociqbk-izldtxyeloj-hfpayrqvhhvlhhq-lidocaine (MAGIC MOUTHWASH) suspension 1-1-1, 15 mL, swish [...] , topical, Q2H PRN, Iza Adriana Cincoski, AUTO EMISSIONS TECHNICIAN ??? cefepime (MAXIPIME) 2,000 mg/20 mL in [...] spray, each nostril, Q1H PRN, Iza Gordon, AUTO EMISSIONS TECHNICIAN ? ? sodium chloride 0.9 % irrigation [...] , topical, Q2H PRN, Iza Adriana Cincoski, AUTO EMISSIONS TECHNICIAN Objective Vitals: 24hr Min/Max: Temp Min: 36.2 [...] Plan Continue gabapentin CHF (congestive heart failure) ([facility] [place]) Assessment & Plan With diastolic dysfunction, new [...] - Pulm toilet?? DVT (deep venous thrombosis) ([facility] [place]) Assessment & Plan Continue xarelto COPD, severe ([facility] [place]) Assessment & Plan Continue inhalers Pure hypercholesterolemia Assessment & Plan Continue statin Type 2 diabetes mellitus ([facility] [place]) Assessment & Plan On basaglar 30 units [...] admit. AML (acute myeloid leukemia) in remission ([facility] [place]) Assessment & Plan -??Induction with 7+3 and HiDAC consolidation x3??s/p decitabine maintenance on the CALGB 27705 protocol. -??Relapsed disease,??status post an allogeneic transplant with busulfan and Cytoxan on the AMD allogeneic study with his sister, 08/27 match; with day 0 on 11/09/2009.?? - Currently in remission. Follows with Dr. Del Valle - On tacro, cellcept - OI ppx: Cont acyclovir. Add vori given remains on immunosuppressives. Add bactrim (pt stated he was no longer taking). Hnlng-nvtrfj-lbay disease (CMS/HCC) Assessment & Plan Continue cellcept 1 g BID and tacrolimus??0.5 every other day. -??on prednisone 60 bid at admission (pred taper), continue dose for now - cont eye drops - Cont Pred 60 bid. Sent prior-auth to 7th floor pharm to check insurance approval for Jakmalenai. Discussed possible EAP with real estate marketing coordinator if not approved. - Cont spiriva; albuterol PRN. Continue home advair. Added Azithro 250 3x/weekly Osteopenia Assessment & Plan Continue home vitamin D and dietary calcium Josué Del Valle MD, PhD LE APPLICATIONS DEVELOPER * Michael Stevenson NP - 11/22/2019 12:40 [...] 650 mg, oral, Q4H PRN, Iza Gordon, AUTO EMISSIONS TECHNICIAN ??? acetaminophen (TYLENOL) tablet 650 mg, 650 mg, oral, Q6H PRN, Iza Gordon, AUTO EMISSIONS TECHNICIAN ??? acyclovir (ZOVIRAX) tablet 400 mg, 400 mg, oral, Q8H, Iza Gordon, AUTO EMISSIONS TECHNICIAN, 400 mg at 11/22/19 0913 ??? albuterol 2.5 mg /3 mL (0.083 %) nebulizer solution 2.5 mg, 2.5 mg, nebulization, Once PRN, Iza Gordon NP ??? albuterol HFA (PROVENTIL HFA,VENTOLIN HFA,PROAIR HFA) 90 mcg/actuation inhaler 2 puff, 2 puff, inhalation, Q4H PRN (RT), Iza Gordon, ARMEN ? ? aluminum & magnesium fznobvfhg-tucsraorcmf-fdfqvyqytabuedo-lidocaine (MAGIC MOUTHWASH) suspension 1-1-1, 15 mL, swish & swallow, QID PRN, Iza Gordon, ARMEN ??? atorvastatin (LIPITOR) tablet 40 mg, 40 mg, oral, Daily, Iaz Gordon NP, 40 mg at11/22/19 0913 ??? [...] drop, each eye, Q4H PRN, Iza Lillyi, AUTO EMISSIONS TECHNICIAN ??? potassium chloride 40 mEq/520 mL in sodium chloride 0.9% (premix) 40 mEq, 40 mEq, intravenous, Q4H PRN, Iza Lillyi, AUTO EMISSIONS TECHNICIAN ??? potassium chloride ER (KLOR-CON) extended release tablet 40 mEq, 40 mEq, oral, Q4H PRN, Iza Lillyi, AUTO EMISSIONS TECHNICIAN ??? pramoxine-zinc oxide (TRONOLANE) 1-5 % rectal cream, , rectal, TID PRN, Iza Gordon, AUTO EMISSIONS TECHNICIAN ??? predniSONE (DELTASONE) tablet 40 mg, 40 mg, oral, BID, Iza Gordon, AUTO EMISSIONS TECHNICIAN, 40 mg at 11/22/19 0914 ??? rivaroxaban (XARELTO) tablet 20 mg, 20 mg, oral, Daily with dinner, Iza Gordon, AUTO EMISSIONS TECHNICIAN, 20 mg at 11/21/19 1740 ??? sodium chloride (OCEAN) 0.65 % nasal spray 2 spray, 2 spray, each nostril, Q1H PRN, Iza Gordon, AUTO EMISSIONS TECHNICIAN ? ? sodium chloride 0.9 % irrigation 30 mL, 30 mL, swish & spit, QID, Iza Gordon,AUTO EMISSIONS TECHNICIAN, 30 mL at 11/22/19 0757 ??? sodium chloride 0.9% flush 0.5-20 mL, 0.5-20 mL, intra-catheter, Q8H ROSA MARIA, Iza Gordon, AUTO EMISSIONS TECHNICIAN, 10 mL at 11/22/19 0915 ??? sodium chloride 0.9% flush 0.5-20 mL, 0.5-20 mL, intra-catheter, PRN, Iza Gordon,AUTO EMISSIONS TECHNICIAN, 10 mL at 11/21/19 0906 ??? sodium chloride 0.9% infusion, 30 mL/hr, intravenous, Continuous PRN, Iza GordonAUTO EMISSIONS TECHNICIAN, Last Rate: 30 mL/hr at 11/21/19 0600, [...] Plan Continue gabapentin CHF (congestive heart failure) ([facility]) Assessment & Plan With diastolic dysfunction, new [...] - Pulm toilet?? DVT (deep venous thrombosis) ([facility]) Assessment & Plan Continue xarelto COPD, severe ([facility] [place]) Assessment & Plan Continue inhalers Pure hypercholesterolemia Assessment & Plan Continue statin Type 2 diabetes mellitus ([facility] [place]) Assessment & Plan On basaglar 30 units [...] admit. AML (acute myeloid leukemia) in remission ([facility] [place]) Assessment & Plan -??Induction with 7+3 and HiDAC consolidation x3??s/p decitabine maintenance on the CALGB 38075 protocol. -??Relapsed disease,??status post an allogeneic transplant with busulfan and Cytoxan on the AMD allogeneic study with his sister, 08/27 match; with day 0 on 11/09/2009.?? - Currently in remission. Follows with Dr. Del Valle - On tacro, cellcept - OI ppx: Cont acyclovir. Add vori given remains on immunosuppressives. Add bactrim (pt stated he was no longer taking). Fpvpg-cytgdt-lmwh disease ([facility] [place]) Assessment & Plan Continue cellcept 1 g BID and tacrolimus??0.5 every other day. -??on prednisone 60 bid at admission (pred taper), continue dose for now - cont eye drops - Cont Pred 60 bid. Sent prior-auth to 7th floor pharm to check insurance approval for Jakafi. Discussed possible EAP with real estate marketing coordinator if not approved. - Cont spiriva; albuterol PRN. Continue home advair. Added Azithro 250 3x/weekly Osteopenia Assessment & Plan Continue home vitamin D and dietary calcium LE APPLICATIONS DEVELOPER * Lizzette Grijalva MD - 11/21/2019 9:18 [...] M.D. Assessment and Plan Active Problems: Osteopenia Xpkfj-quzuvg-vxxi disease (CMS/HCC) AML (acute myeloid leukemia) in remission (CMS/HCC) Type 2 diabetes mellitus (CMS/HCC) Pure hypercholesterolemia COPD, severe (CMS/HCC) DVT (deep venous thrombosis) (CMS/HCC) Shortness of breath CHF (congestive heart failure) (CMS/HCC) Peripheral neuropathy Tobacco abuse AML (acute myeloid leukemia) in remission (CMS/HCC) -??Induction with 7+3 and HiDAC consolidation x3??s/p decitabine maintenance on the CALGB 12629 protocol. -??Relapsed disease,??status post an allogeneic transplant with busulfan and Cytoxan on the AMD allogeneic study with his sister, 08/27 match; with day 0 on 11/09/2009.?? - Currently in remission. Follows with Dr. Del Valle - Continue tacro, cellcept, Pred 40 bid - OI ppx: Cont acyclovir. Add vori given remains on immunosuppressives. Add bactrim (pt stated he was no longer taking). ?? Ilrvl-hrhxzi-neim disease (CMS/HCC) - Continue cellcept 1 g BID and tacrolimus??0.5 every other day. -??on prednisone 40 bid - cont eye drops - Sent prior-auth to 7th floor pharm to check insurance approval for Orenafi. Discussed possible EAPwith real estate marketing coordinator if not approved. - Cont??spiriva; albuterol PRN. Continue home advair HCAP Unable to determine source currently. Concern for poss GVHD and/or poss COPD exacerbation, HF.??Recently discharged from OSH with 2L O2 - Recently admitted to OSH with similar symptoms, discharged on pred taper. Now with??increased??B1egehipmjimd, increased MILLER. - TTE (09/2019) EF 55%. [...] PGY4 Divisions of Hematology and Oncology Pager [phone] Cosigned by Josué Del Valle MD PhD at 11/22/2019 9:45 AM ORACLE APPLICATIONS DEVELOPER LE APPLICATIONS DEVELOPER LE APPLICATIONS DEVELOPER LE APPLICATIONS DEVELOPER LE APPLICATIONS DEVELOPER Associated attestation - Josué Del Valle MD PhD - 11/22/2019 9:45 AM ORACLE APPLICATIONS DEVELOPER I have seen and examined the patient [...] Gordon NP ? ? aluminum & magnesium mjdjrzsrt-ayswhgwxwuf-gumcghiluqayfyr-lidocaine (MAGIC MOUTHWASH) suspension 1-1-1 15 mL swish [...] Units subcutaneous TID with meals Iza Gordon AUTO EMISSIONS TECHNICIAN ??? loperamide (IMODIUM) capsule 2 mg 2 mg oral Q1H PRN Iza Gordon AUTO EMISSIONS TECHNICIAN ??? magnesium sulfate 4 g/100 mL in water (premix) 4 g 4 g intravenous Q4H PRN Iza Gordon, AUTO EMISSIONS TECHNICIAN ??? magnesium sulfate 6 g in sodium chloride 0.9% 250 mL IVPB 6 g intravenous Q4H PRN Iza Gordon, AUTO EMISSIONS TECHNICIAN ??? montelukast (SINGULAIR) tablet 10 mg 10 mg oral Nightly Iza Gordon, AUTO EMISSIONS TECHNICIAN ??? mycophenolate mofetil (CELLCEPT) tablet 1,000 mg 1,000 mg oral BID Iza Gordon, AUTO EMISSIONS TECHNICIAN ??? nicotine (NICODERM CQ) 21 mg patch 24 hour 1 patch 1 patch transdermal Daily Iza Gordon NP ??? ofloxacin (OCUFLOX) 0.3 % ophthalmic solution 1 drop 1 drop each eye BID Iza Gordon, AUTO EMISSIONS TECHNICIAN ??? polyvinyl alcohol (LIQUIFILM TEARS) 1.4 % ophthalmic solution 2 drop 2 drop each eye Q4H PRN Iza Gordon AUTO EMISSIONS TECHNICIAN ??? potassium chloride 40 mEq/520 mL in sodium chloride 0.9% (premix) 40 mEq 40 mEq intravenous Q4HPRN Iza Gordon NP ??? potassium chloride ER (KLOR-CON) extended release tablet 40 mEq 40 mEq oral Q4H PRN Iza Gordon, AUTO EMISSIONS TECHNICIAN ??? pramoxine-zinc oxide (TRONOLANE) 1-5 % rectal cream rectal TID PRN Iza Gordon AUTO EMISSIONS TECHNICIAN ??? rivaroxaban (XARELTO) tablet 20 mg 20 mg oral Daily with dinner Iza Gordon, AUTO EMISSIONS TECHNICIAN ??? sodium chloride (OCEAN) 0.65 % nasal spray 2 spray 2 spray each nostril Q1H PRN Iza Nugent, AUTO EMISSIONS TECHNICIAN ? ? sodium chloride 0.9 % irrigation 30 mL 30 mL swish & spit QID Iza Wright Heidi, AUTO EMISSIONS TECHNICIAN ??? sodium chloride 0.9% flush 0.5-20 mL 0.5-20 mL intra-catheter Q8H ROSA MARIA Iza Wright Heidi,AUTO EMISSIONS TECHNICIAN 10 mL at 11/20/19 1407 ??? sodium chloride 0.9% flush 0.5-20 mL 0.5-20 mL intra-catheter PRN Iza Morilloreed Gordon, AUTO EMISSIONS TECHNICIAN ??? sodium chloride 0.9% infusion 30 mL/hr intravenous Continuous PRN Iza Wright Heidi, AUTO EMISSIONS TECHNICIAN ??? sodium chloride 0.9% IVPB 0-250 mL 0-250 mL intravenous PRN Iza Adriana Heidi, AUTO EMISSIONS TECHNICIAN ??? tacrolimus (PROGRAF) capsule 0.5 mg 0.5 mg oral Every other day Iza Gordon, AUTO EMISSIONS TECHNICIAN ??? tiotropium (SPIRIVA) 18 mcg per inhalation capsule 1 capsule 1 capsule inhalation Daily Iza Adrianajacquelyn Gordon AUTO EMISSIONS TECHNICIAN ??? white petrolatum-mineral oil (EUCERIN) cream topical [...] Mixed bacterial oscar seen on gram stain. POCT glucose Collection [...] GVHD problem. - Pulm toilet?? COPD, severe ([facility]) Continue inhalers Circulatory CHF (congestive heart failure) ([facility]) With diastolic dysfunction, new diagnosis. -Continue Lasix. Rpt TTE DVT (deep venous thrombosis) ([facility]) Continue xarelto Musculoskeletal Osteopenia Continue home vitamin D and dietary calcium Endocrine/Metabolic Pure hypercholesterolemia Continue statin Type 2 diabetes mellitus ([facility]) On basaglar 30 units AM and novolog [...] Hematologic AML (acute myeloid leukemia) in remission ([facility]) -??Induction with 7+3 and HiDAC consolidation x3??s/p decitabine maintenance on the CALGB 25135 protocol. -??Relapsed disease,??status post an allogeneic transplant with busulfan and Cytoxan on the AMD allogeneic study with his sister, 08/27 match; with day 0 on 11/09/2009.?? - Currently in remission. Follows with Dr. Del Valle - On tacro, cellcept - OI ppx: Cont acyclovir. Add vori given remains on immunosuppressives. Add bactrim (pt stated he was no longer taking). Immune Ogxmt-abxtqq-smqp disease (CMS/HCC) Continue cellcept 1 g BID and tacrolimus??0.5 every other day. -??on prednisone 60 bid at admission (pred taper), continue dose for now - cont eye drops - Cont Pred 60 bid. Sent prior-auth to 7th floor pharm to check insurance approval for Jakafi. Discussed possible EAP with real estate marketing coordinator if not approved. - Cont spiriva; albuterol PRN. Continue home advair. Added Azithro 250 3x/weekly Other Tobacco abuse Nicotine patch Josué Del Valle MD PhD LE APPLICATIONS DEVELOPER * Iza Gordon, AUTO EMISSIONS TECHNICIAN - 11/20/2019 2:30 PM CST BMT History [...] and PE. He was recently discharged from [facility] last week after having an episode of [...] Gordon NP ? ? aluminum & magnesium ejegmnynh-ndyepecujar-kmwiethuqeofltb-lidocaine (MAGIC MOUTHWASH) suspension 1-1-1 15 mL swish [...] Units 1-3 Units subcutaneous Nightly Iza Gordon AUTO EMISSIONS TECHNICIAN ??? insulin lispro (HumaLOG) injection 1-5 Units 1-5 Units subcutaneous TID with meals Iza Gordon AUTO EMISSIONS TECHNICIAN ??? loperamide (IMODIUM) capsule 2 mg 2 mg oral Q1H PRN Iza Gordon, AUTO EMISSIONS TECHNICIAN ??? magnesium sulfate 4 g/100 mL in water (premix) 4 g 4 g intravenous Q4H PRN Iza Gordon, AUTO EMISSIONS TECHNICIAN ??? magnesium sulfate 6 g in sodium chloride 0.9% 250 mL IVPB 6 g intravenous Q4H PRN Iza Gordon, AUTO EMISSIONS TECHNICIAN ??? montelukast (SINGULAIR) tablet 10 mg 10 mg oral Nightly Iza Gordon AUTO EMISSIONS TECHNICIAN ??? mycophenolate mofetil (CELLCEPT) tablet 1,000 mg 1,000 mg oral BID Iza Gordon, AUTO EMISSIONS TECHNICIAN ??? nicotine (NICODERM CQ) 21 mg patch 24 hour 1 patch 1 patch transdermal Daily Iza Gordon AUTO EMISSIONS TECHNICIAN ??? ofloxacin (OCUFLOX) 0.3 % ophthalmic solution 1 drop 1 drop each eye BID Iza Gordon NP ??? polyvinyl alcohol (LIQUIFILM TEARS) 1.4 % ophthalmic solution 2 drop 2 drop each eye Q4H PRN Iza Gordon AUTO EMISSIONS TECHNICIAN ??? potassium chloride 40 mEq/520 mL in sodium chloride 0.9% (premix) 40 mEq 40 mEq intravenous Q4HPRN Iza Gordon, AUTO EMISSIONS TECHNICIAN ??? potassium chloride ER (KLOR-CON) extended release tablet 40 mEq 40 mEq oral Q4H PRN Iza Gordon AUTO EMISSIONS TECHNICIAN ??? pramoxine-zinc oxide (TRONOLANE) 1-5 % rectal cream rectal TID PRN Iza Gordon, AUTO EMISSIONS TECHNICIAN ??? rivaroxaban (XARELTO) tablet 20 mg 20 mg oral Daily with dinner Iza Gordon, AUTO EMISSIONS TECHNICIAN ??? sodium chloride (OCEAN) 0.65 % nasal spray 2 spray 2 spray each nostril Q1H PRN Iza Nugent, AUTO EMISSIONS TECHNICIAN ? ? sodium chloride 0.9 % irrigation 30 mL 30 mL swish & spit QID Iza Gordon, AUTO EMISSIONS TECHNICIAN ??? sodium chloride 0.9% flush 0.5-20 mL 0.5-20 mL intra-catheter Q8H ROSA MARIA Iza Gordon,AUTO EMISSIONS TECHNICIAN 10 mL at 11/20/19 1407 ??? sodium chloride 0.9% flush 0.5-20 mL 0.5-20 mL intra-catheter PRN Iza Gordon, AUTO EMISSIONS TECHNICIAN ??? sodium chloride 0.9% infusion 30 mL/hr intravenous Continuous PRN Iza Gordon, AUTO EMISSIONS TECHNICIAN ??? sodium chloride 0.9% IVPB 0-250 mL 0-250 mL intravenous PRN Iza Gordon, AUTO EMISSIONS TECHNICIAN ??? tacrolimus (PROGRAF) capsule 0.5 mg 0.5 mg oral Every other day Iza Gordon, AUTO EMISSIONS TECHNICIAN ??? tiotropium (SPIRIVA) 18 mcg per inhalation [...] EKG/Min 64 BPM Atrial Rate 64 BPM ND-Interval (MSEC) 132 ms QRS-Interval (MSEC) 88 ms QT-Interval (MSEC) 404 ms QTc 416 ms P Rousseau 23 degrees R Rousseau 57 degrees T Rousseau 63 degrees Diagnosis Normal sinus rhythm Normal [...] W Doppler/CF (Results Pending) Pulmonary Function Test -[facility] [place]; Spirometry with Bronchodilator (Results Pending) CT Chest [...] Continue inhalers Circulatory CHF (congestive heart failure) ([facility]/HCC) With diastolic dysfunction, new diagnosis. -Continue Lasix. Rpt TTE DVT (deep venous thrombosis) ([facility]/HCC) Continue xarelto Musculoskeletal Osteopenia Continue home vitamin D and dietary calcium Endocrine/Metabolic Pure hypercholesterolemia Continue statin Type 2 diabetes mellitus ([facility]/HCC) On basaglar 30 units AM and novolog [...] consolidation x3??s/p decitabine maintenance on the CALGB 28383 protocol. -??Relapsed disease,??status post an allogeneic transplant with busulfan and Cytoxan on the AMD allogeneic study with his sister, 08/27 match; with day 0 on 11/09/2009.?? - Currently in remission. Follows with Dr. Del Valle - On tacro, cellcept - OI ppx: Cont acyclovir. Add vori given remains on immunosuppressives. Add bactrim (pt stated he was no longer taking). Immune Jxkhc-qjtqne-yvxb disease (CMS/HCC) Continue cellcept 1 g BID and tacrolimus??0.5 every other day. -??on prednisone 60 bid at admission (pred taper), continue dose for now - cont eye drops - Cont Pred 60 bid. Sent prior-auth to 7th floor pharm to check insurance approval for Selin. Discussed possible EAP with real estate marketing coordinator if not approved. - Cont spiriva; albuterol PRN. Continue home advair. Added Azithro 250 3x/weekly Other Tobacco abuse Nicotine patch Iza Gordon NP Cosigned by Josué Del Valle MD PhD at 11/21/2019 10:34 AM ORACLE APPLICATIONS DEVELOPER LE APPLICATIONS DEVELOPER LE APPLICATIONS DEVELOPER Associated attestation - Josué Del Valle MD PhD - 11/21/2019 10:34 AM ORACLE APPLICATIONS DEVELOPER I have seen and examined the patient [...] Endocrine Diabetes Inpatient Consult 11/23/2019 Bri Robert [id number] Kirt Lindsay DO CONSULTING PROVIDER: Leni Potter [...] Take with or without food. 11/20/19 12/20/19 Delym Fong NP sildenafil, antihypertensive, (REVATIO) 20 mg [...] PER DAY) 10/08/19 Historical Provider, MD PALM ELLIPCAMREN 100-62.5-25 mcg inhaler INHALE 1 PUFF BY [...] file Gets together: Not on file Attends scientology service: Not on file Active member of [...] 55 08/07/2019 Assessment/Plan CHF (congestive heart failure) ([facility]) Assessment & Plan Closely monitor blood sugar to avoid hypoglycemia Vitamin D deficiency Assessment & Plan Last vitamin-D level low at 16. Continue vitamin D2 05712 units weekly and vitamin D3 2000 units daily Pure hypercholesterolemia Assessment & Plan On atorvastatin 40 mg daily Type 2 diabetes mellitus ([facility]) Assessment & Plan Patient has uncontrolled type [...] basal/bolus, doses pending. Follows with endocrinology here. Iyiml-rlxpdp-asve disease ([facility]) Assessment & Plan Starting on prednisone 20 twice daily today Leni Potter MD Endocrinology Fellow, PGY-5 Cosigned by Eneida Gibson MD at 11/23/2019 2:35 PM ORACLE APPLICATIONS DEVELOPER LE APPLICATIONS DEVELOPER LE APPLICATIONS DEVELOPER Associated attestation - Eneida Gibson MD - 11/23/2019 2:35 PM ORACLE APPLICATIONS DEVELOPER I have seen and examined the patient [...] of Weight Used for Estimated Protein : [place] Protein Needs Based on g/k.2 Total Protein Estimated Needs (gm): 90.36 Kcal/kg Type of Weight Used for Estimated Kcals: [place] Kcal/k Total Kcal/kg Estimated Needs : 2259 [...] albuterol HFA ? ? aluminum & magnesium xacaxiwae-nxzgewzpszp-iqfqywydiidbgtw-lidocaine (MAGIC MOUTHWASH) suspension ??? bacitracin-polymyxin B ??? [...] Restricted; Consistent Carbohydrate Continuous Question Answer Comment ([facility]) Diet type Restricted Diabetic: Consistent Carbohydrate 11/21/19915 [...] changes, Stool patterns Silva Londono RD, LD, [facility] LE APPLICATIONS DEVELOPER documented in this encounter Nursing Notes * Regi Oro RN - 11/28/2019 1:29 PM CST Pt discharged by wheelchair to home. Pt accompanied to car. Pt given discharge instructions, follow-up appointment information, and medications. Personal belongings sent with pt. Pt stated that he had no questions at this time. Pt stable upon discharge. Aware voriconazole was sent to [facility] pharmacy. Denies any further needs at this time. LE APPLICATIONS DEVELOPER * Yasmeen Solis RN - 11/27/2019 6:01 PM CST Pt's blood glucose at [id number]. AUTO EMISSIONS TECHNICIAN Iza Boo notified. Ok to give 7 units on max sliding scale plus standing 15 units to total 22 units. Recheck at next scheduled time, prior to bed or with a snack. LE APPLICATIONS DEVELOPER * Ish Cavazos RN - 11/20/2019 4:53 PM CST Clinical alert on new admission to BMT. Floor to call with any concerns or assistance needed. LE APPLICATIONS DEVELOPER documented in this encounter Miscellaneous Notes * [...] available for transport home. VS remain stable. LE APPLICATIONS DEVELOPER * Assessment & Plan Note - Kiarra Spaulding MD - 11/28/2019 10:29 AM CSTAssociated Problem(s): Vitamin D deficiency Last vitamin-D level low at 16. Continue vitamin D2 01932 units weekly and vitamin D3 2000 units daily LE APPLICATIONS DEVELOPER * Assessment & Plan Note - Kiarra [...] up with Dr. Elizondo and diabetes education. LE APPLICATIONS DEVELOPER LE APPLICATIONS DEVELOPER * Assessment & Plan Note - Kiarra Spaulding MD - 11/28/2019 10:27 AM CSTAssociated Problem(s): Pure hypercholesterolemia On atorvastatin 40 mg daily LE APPLICATIONS DEVELOPER * Assessment & Plan Note - Kiarra Spaulding MD - 11/28/2019 10:27 AM CSTAssociated Problem(s): Isihf-olxzlx-msch disease (HCC) Prednisone decreased to 20 mg daily LE APPLICATIONS DEVELOPER * Assessment & Plan Note - Kiarra Spaulding MD - 11/28/2019 10:27 AM CSTAssociated Problem(s): CHF (congestive heart failure) (CMS/HCC) (HCC) Closely monitor blood sugar to avoid hypoglycemia LE APPLICATIONS DEVELOPER * Subjective & Objective - Kiarra Spaulding MD - 11/28/2019 10:25 AM CST Endocrine Diabetes Inpatient Follow Up 11/28/2019 Bri Jones [id number] Kirt Lindsay DO Admit Date: 11/20/2019 Length [...] Carbohydrate Diet effective now Question Answer Comment ([facility]) Diet type Restricted Diabetic: Consistent Carbohydrate 11/23/19 [...] Results Component Value Date PTH 54 08/07/2019 LE APPLICATIONS DEVELOPER * Plan of Shannon - Betty Montemayor [...] of discharge needs will improve Outcome: Progressing LE APPLICATIONS DEVELOPER * Plan of Care - Rogers Lagos RN - 11/27/2019 4:44 PM CST All Medication are Ready For [employer] [facility] with O C/o Pay. LE APPLICATIONS DEVELOPER * Assessment & Plan Note - Leni Potter MD - 11/27/2019 1:35 PM ORACLE APPLICATIONS DEVELOPER Associated Problem(s): CHF (congestive heart failure) (CMS/HCC) ([facility]) Closely monitor blood sugar to avoid hypoglycemia LE APPLICATIONS DEVELOPER * Assessment & Plan Note - Leni Potter MD - 11/27/2019 1:35 PM ORACLE APPLICATIONS DEVELOPER Associated Problem(s): Vitamin D deficiency Last vitamin-D level low at 16. Continue vitamin D2 17028 units weekly and vitamin D3 2000 units daily LE APPLICATIONS DEVELOPER * Assessment & Plan Note - Leni Potter MD - 11/27/2019 1:35 PM ORACLE APPLICATIONS DEVELOPER Associated Problem(s): Pure hypercholesterolemia On atorvastatin 40 mg daily LE APPLICATIONS DEVELOPER * Assessment & Plan Note - Leni Potter MD - 11/27/2019 1:33 PM ORACLE APPLICATIONS DEVELOPER Associated Problem(s): Type 2 diabetes mellitus (HCC) [...] up with Dr. Elizondo and diabetes education. LE APPLICATIONS DEVELOPER * Assessment & Plan Note - Leni Potter MD - 11/27/2019 1:25 PM ORACLE APPLICATIONS DEVELOPER Associated Problem(s): Rzxwb-iwnrzh-eymv disease (HCC) Prednisone decreased to 20 mg daily LE APPLICATIONS DEVELOPER * Subjective & Objective - Leni Potter MD - 11/27/2019 1:24 PM ORACLE APPLICATIONS DEVELOPER Endocrine Diabetes Inpatient Follow Up 11/27/2019 Bri Jones [id number] Kirt Lindsay DO Admit Date: 11/20/2019 Length [...] Results Component Value Date PTH 54 08/07/2019 LE APPLICATIONS DEVELOPER * Plan of Shannon - Yasmeen Solis [...] impaired skin integrity will decrease Outcome: Progressing LE APPLICATIONS DEVELOPER * Plan of Shannon - Narcisa Rivero [...] relieved by oxy. 1 breathing treatment overnight. LE APPLICATIONS DEVELOPER * Plan of Shannon - Rosy Hidalgo [...] discharge date Saturday, pending walking O2 assessment. LE APPLICATIONS DEVELOPER * Assessment & Plan Note - Leni Potter MD - 11/26/2019 5:32 PM ORACLE APPLICATIONS DEVELOPER Associated Problem(s): CHF (congestive heart failure) (CMS/HCC) (HCC) Closely monitor blood sugar to avoid hypoglycemia LE APPLICATIONS DEVELOPER * Assessment & Plan Note - Leni Potter MD - 11/26/2019 5:32 PM ORACLE APPLICATIONS DEVELOPER Associated Problem(s): Vitamin D deficiency Last vitamin-D level low at 16. Continue vitamin D2 91547 units weekly and vitamin D3 2000 units daily LE APPLICATIONS DEVELOPER * Assessment & Plan Note - Leni Potter MD - 11/26/2019 5:32 PM ORACLE APPLICATIONS DEVELOPER Associated Problem(s): Pure hypercholesterolemia On atorvastatin 40 mg daily LE APPLICATIONS DEVELOPER * Assessment & Plan Note - Leni Potter MD - 11/26/2019 5:31 PM ORACLE APPLICATIONS DEVELOPER Associated Problem(s): Type 2 diabetes mellitus (HCC) [...] basal/bolus, doses pending. Follows with endocrinology here. LE APPLICATIONS DEVELOPER * Assessment & Plan Note - Leni Potter MD - 11/26/2019 5:31 PM ORACLE APPLICATIONS DEVELOPER Associated Problem(s): Fdkto-ivnlvm-hlii disease (HCC) Plan to taper prednisone to 20 mg daily LE APPLICATIONS DEVELOPER * Subjective & Objective - Leni Potter MD - 11/26/2019 5:30 PM ORACLE APPLICATIONS DEVELOPER Endocrine Diabetes Inpatient Follow Up 11/26/2019 Bri Jones [id number] Kirt Lindsay DO Admit Date: 11/20/2019 Length [...] Results Component Value Date PTH 54 08/07/2019 LE APPLICATIONS DEVELOPER * Plan of Care - Rogers Lagos RN - 11/26/2019 3:31 PM CST Follow up notes Report per [facility] Blood Sugar stabilization Impression AML Referrals None To date Support family Transportation family FU Appt To Be determined ADD 11/28 [facility] Case Management Will Follow for Planning and referrals LE APPLICATIONS DEVELOPER * Hospital Course - Mellisa Llamas MD - 11/26/2019 2:38 PM ORACLE APPLICATIONS DEVELOPER 54 y/o male with a hx of [...] inhalers ?? Circulatory CHF (congestive heart failure) ([facility]) With diastolic dysfunction, new diagnosis. -Continue Lasix. -(11/23) Rpt TTE showed EF 65%, unable to measure PA pressure, normal diastolic function. ?? DVT (deep venous thrombosis) ([facility]) Continue xarelto ?? Musculoskeletal Osteopenia Continue home vitamin D and dietary calcium ?? Endocrine/Metabolic Pure hypercholesterolemia Continue statin ?? Type 2 diabetes mellitus ([facility]) On basaglar 30 units AM and novolog [...] Hematologic AML (acute myeloid leukemia) in remission ([facility]) Induction with 7+3 and HiDAC consolidation x3??s/p decitabine maintenance on the CALGB 87422 protocol. -??Relapsed disease,??status post an allogeneic transplant with busulfan and Cytoxan on the AMD allogeneic study with his sister, 08/27 match; with day 0 on 11/09/2009.?? - Currently in remission. Follows with Dr. Del Valle - On tacro, cellcept - OI ppx: Cont acyclovir. Added vori and bactrim (pt stated he was no longer taking at home). ?? Immune Inwjy-ctjlze-kgin disease ([facility]) Continue cellcept 1 g BID and tacrolimus??0.5 [...] 3x/weekly ?? Other Tobacco abuse Nicotine patch LE APPLICATIONS DEVELOPER LE APPLICATIONS DEVELOPER LE APPLICATIONS DEVELOPER LE APPLICATIONS DEVELOPER * Plan of Care - Narcisa Rivero [...] relieved by oxy. BG better controlled overnight. LE APPLICATIONS DEVELOPER * Plan of Care - Rosy Hidalgo [...] before eating to properly/accurately measure glucose levels. LE APPLICATIONS DEVELOPER * Assessment & Plan Note - Leni Potter MD - 11/25/2019 4:51 PM ORACLE APPLICATIONS DEVELOPER Associated Problem(s): CHF (congestive heart failure) (CMS/HCC) (HCC) Closely monitor blood sugar to avoid hypoglycemia LE APPLICATIONS DEVELOPER * Assessment & Plan Note - Leni Potter MD - 11/25/2019 4:51 PM ORACLE APPLICATIONS DEVELOPER Associated Problem(s): Vitamin D deficiency Last vitamin-D level low at 16. Continue vitamin D2 06816 units weekly and vitamin D3 2000 units daily LE APPLICATIONS DEVELOPER * Assessment & Plan Note - Leni Potter MD - 11/25/2019 4:50 PM ORACLE APPLICATIONS DEVELOPER Associated Problem(s): Pure hypercholesterolemia On atorvastatin 40 mg daily LE APPLICATIONS DEVELOPER * Assessment & Plan Note - Leni Potter MD - 11/25/2019 4:49 PM ORACLE APPLICATIONS DEVELOPER Associated Problem(s): Type 2 diabetes mellitus (HCC) [...] basal/bolus, doses pending. Follows with endocrinology here. LE APPLICATIONS DEVELOPER * Assessment & Plan Note - Leni Potter MD - 11/25/2019 4:45 PM ORACLE APPLICATIONS DEVELOPER Associated Problem(s): Dqelx-rgdcot-ymlz disease (HCC) He is on prednisone 20 mg BID LE APPLICATIONS DEVELOPER * Subjective & Objective - Leni Potter MD - 11/25/2019 4:42 PM ORACLE APPLICATIONS DEVELOPER Endocrine Diabetes Inpatient Follow Up 11/25/2019 Bri Jones [id number] Kirt Lindsay DO Admit Date: 11/20/2019 Length [...] EKG/Min 71 BPM Atrial Rate 71 BPM ND-Interval (MSEC) 102 ms QRS-Interval (MSEC) 102 ms QT-Interval (MSEC) 374 ms QTc 406 ms P Rousseau 17 degrees R Rousseau 73 degrees T Rousseau 58 degrees Diagnosis Sinus rhythm with short ND Otherwise normal ECG When compared with ECG [...] Results Component Value Date PTH 54 08/07/2019 LE APPLICATIONS DEVELOPER * Plan of Narcisa Griffin RN - [...] of pain. Vss. Npo until BG lower. LE APPLICATIONS DEVELOPER * Assessment & Plan Note - Leni Potter MD - 11/24/2019 4:57 PM ORACLE APPLICATIONS DEVELOPER Associated Problem(s): CHF (congestive heart failure) (CMS/HCC) (HCC) Closely monitor blood sugar to avoid hypoglycemia LE APPLICATIONS DEVELOPER * Assessment & Plan Note - Leni Potter MD - 11/24/2019 4:57 PM ORACLE APPLICATIONS DEVELOPER Associated Problem(s): Vitamin D deficiency Last vitamin-D level low at 16. Continue vitamin D2 11739 units weekly and vitamin D3 2000 units daily LE APPLICATIONS DEVELOPER * Assessment & Plan Note - Leni Potter MD - 11/24/2019 4:57 PM ORACLE APPLICATIONS DEVELOPER Associated Problem(s): Pure hypercholesterolemia On atorvastatin 40 mg daily LE APPLICATIONS DEVELOPER * Assessment & Plan Note - Leni Potter MD - 11/24/2019 4:54 PM ORACLE APPLICATIONS DEVELOPER Associated Problem(s): Type 2 diabetes mellitus (HCC) [...] basal/bolus, doses pending. Follows with endocrinology here. LE APPLICATIONS DEVELOPER * Assessment & Plan Note - Leni Potter MD - 11/24/2019 4:52 PM ORACLE APPLICATIONS DEVELOPER Associated Problem(s): Lwmed-gymbcw-qsps disease (HCC) He is on prednisone 20 mg BID LE APPLICATIONS DEVELOPER * Subjective & Objective - Leni Potter MD - 11/24/2019 4:49 PM ORACLE APPLICATIONS DEVELOPER Endocrine Diabetes Inpatient Follow Up 11/24/2019 Bri Jones [id number] Kirt Lindsay DO Admit Date: 11/20/2019 Length [...] by Marisa Vázquez (RN) on 11/24/2019 12:59:13 ORACLE APPLICATIONS DEVELOPER to ec. Credentials RN Called By ec [...] Results Component Value Date PTH 54 08/07/2019 LE APPLICATIONS DEVELOPER * Plan of Care - Marisa Vázquez [...] meals. Steady gait in room when ambulating. LE APPLICATIONS DEVELOPER * Assessment & Plan Note - Iza Gordon NP - 11/24/2019 8:00 AM CSTAssociated Problem(s): Pneumonia due to stenotrophomonas POA. Possibly community-acquired and/or 2/[address] Strep pneumoniae pos sputum cx.See SOB problem. LE APPLICATIONS DEVELOPER LE APPLICATIONS DEVELOPER * Plan of Care - Kait Mcdaniel [...] been sleeping well. Will continue to monitor. LE APPLICATIONS DEVELOPER * Plan of Care - Rogers Lagos RN - 11/23/2019 5:00 PM CST Unable to Complete initial assessment LE APPLICATIONS DEVELOPER * Plan of Care - Jared Joe [...] drip per endocrine, will continue to monitor LE APPLICATIONS DEVELOPER * Assessment & Plan Note - Leni Potter MD - 11/23/2019 2:02 PM ORACLE APPLICATIONS DEVELOPER Associated Problem(s): Pure hypercholesterolemia On atorvastatin 40 mg daily LE APPLICATIONS DEVELOPER * Assessment & Plan Note - Leni Potter MD - 11/23/2019 2:01 PM ORACLE APPLICATIONS DEVELOPER Associated Problem(s): Vitamin D deficiency Last vitamin-D level low at 16. Continue vitamin D2 97131 units weekly and vitamin D3 2000 units daily LE APPLICATIONS DEVELOPER * Assessment & Plan Note - Leni Potter MD - 11/23/2019 2:01 PM ORACLE APPLICATIONS DEVELOPER Associated Problem(s): CHF (congestive heart failure) (CMS/HCC) (HCC) Closely monitor blood sugar to avoid hypoglycemia LE APPLICATIONS DEVELOPER * Assessment & Plan Note - Leni Potter MD - 11/23/2019 2:01 PM ORACLE APPLICATIONS DEVELOPER Associated Problem(s): Qioaf-nskqqo-fmih disease (HCC) Starting on prednisone 20 twice daily today LE APPLICATIONS DEVELOPER * Assessment & Plan Note - Leni Potter MD - 11/23/2019 1:54 PM ORACLE APPLICATIONS DEVELOPER Associated Problem(s): Type 2 diabetes mellitus (HCC) [...] basal/bolus, doses pending. Follows with endocrinology here. LE APPLICATIONS DEVELOPER * Subjective & Objective - Leni Potter MD - 11/23/2019 1:43 PM ORACLE APPLICATIONS DEVELOPER Endocrine Diabetes Inpatient Consult 11/23/2019 Bri Jones [id number] Kirt Lindsay DO CONSULTING PROVIDER: Leni Potter [...] file Gets together: Not on file Attends scientology service: Not on file Active member of [...] Results Component Value Date PTH 54 08/07/2019 LE APPLICATIONS DEVELOPER * Provider Query - Hannah Pardo - [...] record. Sincerely, Hannah Pardo Health Information Management LE APPLICATIONS DEVELOPER * Provider Query - Hannah Pardo - [...] the patient???s medical record. Sincerely, Hannah Byrnes [facility] Information Management LE APPLICATIONS DEVELOPER * Plan of Care - Kait Mcdaniel, [...] notified; see MAR. Will continue to monitor. LE APPLICATIONS DEVELOPER * Plan of Care - Pearl Chaney [...] NC continues. Afebrile. VSS. Care plan continues. LE APPLICATIONS DEVELOPER * Plan of Care - Betty Montemayor [...] no acute complaints at this time. WTC. LE APPLICATIONS DEVELOPER * Plan of Care - Pearl Chaney [...] while at rest. Afebrile. VSS, careplan continues. LE APPLICATIONS DEVELOPER * Provider Query - Lizzette Grijalva MD [...] Respectfully, Dayana Aburto RN BSN CCDS Clinical Vending Machine Attendant [address] LE APPLICATIONS DEVELOPER * Plan of Care - Antonia Pat, SUPERVISOR PAPER PRODUCTS - 11/21/2019 7:53 AM CST Pt has a history of severe copd. Pt is ordered on spirvia and adavir 100/50 1 puff bid. Breath sounds= diminished bilaterally, hr=80, rr=16 on 3L NC. Pt is able to self admin advair 100/50 and sprivia and is therefore being placed bedside for rn to admin. LE APPLICATIONS DEVELOPER * Plan of Care - Bela Gabriel RN - 11/21/2019 4:07 AM CST Goals: Clinical Goals for the Shift: VSS, coordinate care to promote rest, monitor BG, remain free of falls Summary: Monitor VS Q4 hrs and as needed, cluster care to promote rest LE APPLICATIONS DEVELOPER * Plan of Care - Sudha Houston [...] uncontrolled BS and calls out as needed. LE APPLICATIONS DEVELOPER * Assessment & Plan Note - Iza Gordon NP - 11/20/2019 4:18 PM CSTAssociated Problem(s): Pure hypercholesterolemia Continue statin LE APPLICATIONS DEVELOPER * Assessment & Plan Note - Iza Gordon NP - 11/20/2019 4:17 PM CSTAssociated Problem(s): Tobacco abuse Nicotine patch LE APPLICATIONS DEVELOPER * Assessment & Plan Note - Iza Gordon NP - 11/20/2019 4:17 PM CSTAssociated Problem(s): Peripheral neuropathy Continue gabapentin LE APPLICATIONS DEVELOPER * Assessment & Plan Note - Iza Gordon NP - 11/20/2019 4:16 PM CSTAssociated Problem(s): CHF (congestive heart failure) ([facility]) ([facility]) With diastolic dysfunction, new diagnosis. -Continue Lasix. -(11/23) Rpt TTE showed EF 65%, unable to measure PA pressure, normal diastolic function. LE APPLICATIONS DEVELOPER LE APPLICATIONS DEVELOPER LE APPLICATIONS DEVELOPER * Assessment & Plan Note - Iza Gordon NP - 11/20/2019 4:16 PM CSTAssociated Problem(s): COPD with exacerbation ([facility]) ([facility]) Continue inhalers LE APPLICATIONS DEVELOPER * Assessment & Plan Note - Iza [...] - Pulm toilet?? - Walking O2 assessment LE APPLICATIONS DEVELOPER LE APPLICATIONS DEVELOPER LE APPLICATIONS DEVELOPER LE APPLICATIONS DEVELOPER LE APPLICATIONS DEVELOPER LE APPLICATIONS DEVELOPER LE APPLICATIONS DEVELOPER LE APPLICATIONS DEVELOPER LE APPLICATIONS DEVELOPER LE APPLICATIONS DEVELOPER * Assessment & Plan Note - Iza [...] recs - Hgb A1C 13 on admit. LE APPLICATIONS DEVELOPER LE APPLICATIONS DEVELOPER LE APPLICATIONS DEVELOPER LE APPLICATIONS DEVELOPER LE APPLICATIONS DEVELOPER LE APPLICATIONS DEVELOPER LE APPLICATIONS DEVELOPER LE APPLICATIONS DEVELOPER LE APPLICATIONS DEVELOPER * Assessment & Plan Note - Iza Gordon NP - 11/20/2019 3:57 PM CSTAssociated Problem(s): DVT (deep venous thrombosis) (CMS/HCC) (HCC) Continue xarelto LE APPLICATIONS DEVELOPER * Assessment & Plan Note - Iza Gordon NP - 11/20/2019 3:55 PM CSTAssociated Problem(s): Osteopenia Continue home vitamin D and dietary calcium LE APPLICATIONS DEVELOPER * Assessment & Plan Note - Iza Gordon NP - 11/20/2019 3:53 PM CSTAssociated Problem(s): Cfhot-ctkykp-ppgg disease (HCC) Continue cellcept 1 g BID [...] at d/c. - Added Azithro 250 3x/weekly LE APPLICATIONS DEVELOPER LE APPLICATIONS DEVELOPER LE APPLICATIONS DEVELOPER LE APPLICATIONS DEVELOPER LE APPLICATIONS DEVELOPER LE APPLICATIONS DEVELOPER LE APPLICATIONS DEVELOPER LE APPLICATIONS DEVELOPER LE APPLICATIONS DEVELOPER LE APPLICATIONS DEVELOPER LE APPLICATIONS DEVELOPER LE APPLICATIONS DEVELOPER * Assessment & Plan Note - Iza Gordon NP - 11/20/2019 3:53 PM CSTAssociated Problem(s): AML s/p Allo SCT in 2008 Induction with 7+3 and HiDAC consolidation x3??s/p decitabine maintenance on the CALGB 57309 protocol. -??Relapsed disease,??status post an allogeneic transplant with busulfan and Cytoxan on the AMD allogeneic study with his sister, 08/27 match; with day 0 on 11/09/2009.?? - Currently in remission. Follows with Dr. Del Valle - On tacro, cellcept - OI ppx: Cont acyclovir. Added vori and bactrim (pt stated he was no longer taking at home). LE APPLICATIONS DEVELOPER LE APPLICATIONS DEVELOPER LE APPLICATIONS DEVELOPER LE APPLICATIONS DEVELOPER documented in this encounter Plan of [...] GLUCOSE DEVICE Routine 11/28/2019 1 1:25 AM ORACLE APPLICATIONS DEVELOPER POTASSIUM, WHOLE BLOOD STAT 11/28/2019 8:27 AM ORACLE APPLICATIONS DEVELOPER POCT GLUCOSE DEVICE Routine 11/28/2019 8 :26 AM ORACLE APPLICATIONS DEVELOPER BMT CBC Routine 11/28/2019 3:29 AM ORACLE APPLICATIONS DEVELOPER MANUAL DIFFERENTIAL Routine 11/28/2019 3 :29 AM ORACLE APPLICATIONS DEVELOPER CBC WITHOUT DIFFERENTIAL Routine 11/28/2019 3:29 AM ORACLE APPLICATIONS DEVELOPER PHOSPHORUS Routine 11/28/2019 3:29 AM ORACLE APPLICATIONS DEVELOPER MAGNESIUM Routine 11/28/2019 3:29 AM ORACLE APPLICATIONS DEVELOPER BASIC METABOLIC PANEL Routine 11/28/2019 3:29 AM ORACLE APPLICATIONS DEVELOPER POCT GLUCOSE DEVICE Routine 11/27/2019 1 0:22 PM ORACLE APPLICATIONS DEVELOPER POCT GLUCOSE DEVICE Routine 11/27/2019 5 :06 PM ORACLE APPLICATIONS DEVELOPER POCT GLUCOSE DEVICE Routine 11/27/2019 1 1:19 AM ORACLE APPLICATIONS DEVELOPER POTASSIUM LEVEL Routine 11/27/2019 10:33 AM ORACLE APPLICATIONS DEVELOPER VANCOMYCIN LEVEL TROUGH Routine 11/27/2019 10:33 AM ORACLE APPLICATIONS DEVELOPER POCT GLUCOSE DEVICE Routine 11/27/2019 7 :17 AM ORACLE APPLICATIONS DEVELOPER BMT CBC Routine 11/27/2019 4:56 AM ORACLE APPLICATIONS DEVELOPER MANUAL DIFFERENTIAL Routine 11/27/2019 4 :56 AM ORACLE APPLICATIONS DEVELOPER CBC WITHOUT DIFFERENTIAL Routine 11/27/2019 4:56 AM ORACLE APPLICATIONS DEVELOPER PHOSPHORUS Routine 11/27/2019 4:56 AM ORACLE APPLICATIONS DEVELOPER MAGNESIUM Routine 11/27/2019 4:56 AM ORACLE APPLICATIONS DEVELOPER BASIC METABOLIC PANEL Routine 11/27/2019 4:56 AM ORACLE APPLICATIONS DEVELOPER POCT GLUCOSE DEVICE Routine 11/26/2019 8 :52 PM ORACLE APPLICATIONS DEVELOPER POCT GLUCOSE DEVICE Routine 11/26/2019 4 :38 PM ORACLE APPLICATIONS DEVELOPER POCT GLUCOSE DEVICE Routine 11/26/2019 1 1:46 AM ORACLE APPLICATIONS DEVELOPER TACROLIMUS LEVEL, TROUGH Timed 11/26/2019 8:42 AM ORACLE APPLICATIONS DEVELOPER POCT GLUCOSE DEVICE Routine 11/26/2019 7 :11 AM ORACLE APPLICATIONS DEVELOPER BMT CBC Routine 11/26/2019 4:23 AM ORACLE APPLICATIONS DEVELOPER MANUAL DIFFERENTIAL Routine 11/26/2019 4 :23 AM ORACLE APPLICATIONS DEVELOPER CBC WITHOUT DIFFERENTIAL Routine 11/26/2019 4:23 AM ORACLE APPLICATIONS DEVELOPER TYPE AND SCREEN Timed 11/26/2019 4:23 AM ORACLE APPLICATIONS DEVELOPER URIC ACID Timed 11/26/2019 4:23 AM ORACLE APPLICATIONS DEVELOPER PHOSPHORUS Timed 11/26/2019 4:23 AM ORACLE APPLICATIONS DEVELOPER MAGNESIUM Timed 11/26/2019 4:23 AM ORACLE APPLICATIONS DEVELOPER LACTATE DEHYDROGENASE Timed 11/26/2019 4:23 AM ORACLE APPLICATIONS DEVELOPER COMPREHENSIVE METABOLIC PANEL Timed 11/26/2019 4:23 AM ORACLE APPLICATIONS DEVELOPER POCT GLUCOSE DEVICE Routine 11/25/2019 1 1:33 PM ORACLE APPLICATIONS DEVELOPER POCT GLUCOSE DEVICE Routine 11/25/2019 8 :57 PM ORACLE APPLICATIONS DEVELOPER POCT GLUCOSE DEVICE Routine 11/25/2019 5 :05 PM ORACLE APPLICATIONS DEVELOPER ECG 12-LEAD Routine 11/25/2019 1:31 PM ORACLE APPLICATIONS DEVELOPER AML (acute myeloid leukemia) in remission ([facility]) POCT GLUCOSE DEVICE Routine 11/25/2019 1 1:50 AM ORACLE APPLICATIONS DEVELOPER POCT GLUCOSE DEVICE Routine 11/25/2019 8 :07 AM ORACLE APPLICATIONS DEVELOPER POCT GLUCOSE DEVICE Routine 11/25/2019 5 :15 AM ORACLE APPLICATIONS DEVELOPER BMT CBC Routine 11/25/2019 3:19 AM ORACLE APPLICATIONS DEVELOPER CRITICAL RESULT CALLBACK CHEMISTRY Routine 11/25/2019 3:19 AM ORACLE APPLICATIONS DEVELOPER MANUAL DIFFERENTIAL Routine 11/25/2019 3 :19 AM ORACLE APPLICATIONS DEVELOPER CBC WITHOUT DIFFERENTIAL Routine 11/25/2019 3:19 AM ORACLE APPLICATIONS DEVELOPER PHOSPHORUS Routine 11/25/2019 3:19 AM ORACLE APPLICATIONS DEVELOPER MAGNESIUM Routine 11/25/2019 3:19 AM ORACLE APPLICATIONS DEVELOPER VANCOMYCIN LEVEL RANDOM Routine 11/25/2019 3:19 AM ORACLE APPLICATIONS DEVELOPER BASIC METABOLIC PANEL Routine 11/25/2019 3:19 AM ORACLE APPLICATIONS DEVELOPER POCT GLUCOSE DEVICE Routine 11/25/2019 3 :16 AM ORACLE APPLICATIONS DEVELOPER POCT GLUCOSE DEVICE Routine 11/24/2019 1 1:54 PM ORACLE APPLICATIONS DEVELOPER POCT GLUCOSE DEVICE Routine 11/24/2019 9 :10 PM ORACLE APPLICATIONS DEVELOPER POCT GLUCOSE DEVICE Routine 11/24/2019 5 :17 PM ORACLE APPLICATIONS DEVELOPER POCT GLUCOSE DEVICE Routine 11/24/2019 1 :12 PM ORACLE APPLICATIONS DEVELOPER CRITICAL RESULT CALLBACK CHEMISTRY Timed 11/24/2019 12:06 PM ORACLE APPLICATIONS DEVELOPER VANCOMYCIN LEVEL TROUGH Timed 11/24/2019 12:06 PM ORACLE APPLICATIONS DEVELOPER TACROLIMUS LEVEL, TROUGH Timed 11/24/2019 12:04 PM ORACLE APPLICATIONS DEVELOPER POCT GLUCOSE DEVICE Routine 11/24/2019 7 :34 AM ORACLE APPLICATIONS DEVELOPER BMT CBC Routine 11/24/2019 4:43 AM ORACLE APPLICATIONS DEVELOPER MANUAL DIFFERENTIAL Routine 11/24/2019 4 :43 AM ORACLE APPLICATIONS DEVELOPER CBC WITHOUT DIFFERENTIAL Routine 11/24/2019 4:43 AM ORACLE APPLICATIONS DEVELOPER PHOSPHORUS Routine 11/24/2019 4:43 AM ORACLE APPLICATIONS DEVELOPER MAGNESIUM Routine 11/24/2019 4:43 AM ORACLE APPLICATIONS DEVELOPER BASIC METABOLIC PANEL Routine 11/24/2019 4:43 AM ORACLE APPLICATIONS DEVELOPER POCT GLUCOSE DEVICE Routine 11/24/2019 4 :38 AM ORACLE APPLICATIONS DEVELOPER POCT GLUCOSE DEVICE Routine 11/24/2019 2 :13 AM ORACLE APPLICATIONS DEVELOPER POCT GLUCOSE DEVICE Routine 11/24/2019 1 2:47 AM ORACLE APPLICATIONS DEVELOPER POCT GLUCOSE DEVICE Routine 11/23/2019 1 1:20 PM ORACLE APPLICATIONS DEVELOPER POCT GLUCOSE DEVICE Routine 11/23/2019 9 :45 PM ORACLE APPLICATIONS DEVELOPER POCT GLUCOSE DEVICE Routine 11/23/2019 8 :00 PM ORACLE APPLICATIONS DEVELOPER POCT GLUCOSE DEVICE Routine 11/23/2019 6 :20 PM ORACLE APPLICATIONS DEVELOPER TRANSTHORACIC ECHO (TTE) COMPLETE W DOPPLER/CF W CONTRAST Routine 11/23/2019 4:01 PM ORACLE APPLICATIONS DEVELOPER POTASSIUM, WHOLE BLOOD Timed 11/23/2019 2:54 PM ORACLE APPLICATIONS DEVELOPER POCT GLUCOSE DEVICE Routine 11/23/2019 2 :43 PM ORACLE APPLICATIONS DEVELOPER POCT GLUCOSE DEVICE Routine 11/23/2019 1 :46 PM ORACLE APPLICATIONS DEVELOPER POCT GLUCOSE DEVICE Routine 11/23/2019 1 2:44 PM ORACLE APPLICATIONS DEVELOPER POCT GLUCOSE DEVICE Routine 11/23/2019 1 1:45 AM ORACLE APPLICATIONS DEVELOPER POCT GLUCOSE DEVICE Routine 11/23/2019 1 0:13 AM ORACLE APPLICATIONS DEVELOPER POCT GLUCOSE DEVICE Routine 11/23/2019 8 :23 AM ORACLE APPLICATIONS DEVELOPER POCT GLUCOSE DEVICE Routine 11/23/2019 4 :41 AM ORACLE APPLICATIONS DEVELOPER BMT CBC Routine 11/23/2019 3:07 AM ORACLE APPLICATIONS DEVELOPER MANUAL DIFFERENTIAL Routine 11/23/2019 3 :07 AM ORACLE APPLICATIONS DEVELOPER APTT Routine 11/23/2019 3:07 AM ORACLE APPLICATIONS DEVELOPER PROTIME-INR Routine 11/23/2019 3:07 AM ORACLE APPLICATIONS DEVELOPER CBC WITHOUT DIFFERENTIAL Routine 11/23/2019 3:07 AM ORACLE APPLICATIONS DEVELOPER TYPE AND SCREEN Timed 11/23/2019 3:07 AM ORACLE APPLICATIONS DEVELOPER URIC ACID Timed 11/23/2019 3:07 AM ORACLE APPLICATIONS DEVELOPER PHOSPHORUS Timed 11/23/2019 3:07 AM ORACLE APPLICATIONS DEVELOPER MAGNESIUM Timed 11/23/2019 3:07 AM ORACLE APPLICATIONS DEVELOPER LACTATE DEHYDROGENASE Timed 11/23/2019 3:07 AM ORACLE APPLICATIONS DEVELOPER COMPREHENSIVE METABOLIC PANEL Timed 11/23/2019 3:07 AM ORACLE APPLICATIONS DEVELOPER POCT GLUCOSE DEVICE Routine 11/23/2019 2 :56 AM ORACLE APPLICATIONS DEVELOPER POCT GLUCOSE DEVICE Routine 11/23/2019 1 :06 AM ORACLE APPLICATIONS DEVELOPER POCT GLUCOSE DEVICE Routine 11/22/2019 1 0:10 PM ORACLE APPLICATIONS DEVELOPER POCT GLUCOSE DEVICE Routine 11/22/2019 5 :34 PM ORACLE APPLICATIONS DEVELOPER POCT GLUCOSE DEVICE Routine 11/22/2019 1 2:03 PM ORACLE APPLICATIONS DEVELOPER CRITICAL RESULT CALLBACK CHEMISTRY STAT 11/22/2019 9:24 AM ORACLE APPLICATIONS DEVELOPER VANCOMYCIN LEVEL TROUGH STAT 11/22/2019 9:24 AM ORACLE APPLICATIONS DEVELOPER POCT GLUCOSE DEVICE Routine 11/22/2019 7 :50 AM ORACLE APPLICATIONS DEVELOPER POCT GLUCOSE DEVICE Routine 11/22/2019 6 :53 AM ORACLE APPLICATIONS DEVELOPER BMT CBC Routine 11/22/2019 5:45 AM ORACLE APPLICATIONS DEVELOPER MANUAL DIFFERENTIAL Routine 11/22/2019 5 :45 AM ORACLE APPLICATIONS DEVELOPER CBC WITHOUT DIFFERENTIAL Routine 11/22/2019 5:45 AM ORACLE APPLICATIONS DEVELOPER PHOSPHORUS Routine 11/22/2019 5:45 AM ORACLE APPLICATIONS DEVELOPER MAGNESIUM Routine 11/22/2019 5:45 AM ORACLE APPLICATIONS DEVELOPER BASIC METABOLIC PANEL Routine 11/22/2019 5:45 AM ORACLE APPLICATIONS DEVELOPER POCT GLUCOSE DEVICE Routine 11/22/2019 5 :06 AM ORACLE APPLICATIONS DEVELOPER POCT GLUCOSE DEVICE Routine 11/22/2019 1 2:27 AM ORACLE APPLICATIONS DEVELOPER POCT GLUCOSE DEVICE Routine 11/21/2019 9 :47 PM ORACLE APPLICATIONS DEVELOPER HISTOPLASMA ANTIGEN Routine 11/21/2019 5 :39 PM ORACLE APPLICATIONS DEVELOPER POCT GLUCOSE DEVICE Routine 11/21/2019 5 :14 PM ORACLE APPLICATIONS DEVELOPER POCT GLUCOSE DEVICE Routine 11/21/2019 1 2:36 PM ORACLE APPLICATIONS DEVELOPER POCT GLUCOSE DEVICE Routine 11/21/2019 8 :28 AM ORACLE APPLICATIONS DEVELOPER POCT GLUCOSE DEVICE Routine 11/21/2019 6 :27 AM ORACLE APPLICATIONS DEVELOPER POCT GLUCOSE DEVICE Routine 11/21/2019 5 :06 AM ORACLE APPLICATIONS DEVELOPER AEROBIC CULTURE AND GRAM STAIN Routine 11/21/2019 3:45 AM ORACLE APPLICATIONS DEVELOPER BMT CBC Routine 11/21/2019 3:40 AM ORACLE APPLICATIONS DEVELOPER CRITICAL RESULT CALLBACK CHEMISTRY Routine 11/21/2019 3:40 AM ORACLE APPLICATIONS DEVELOPER MANUAL DIFFERENTIAL Routine 11/21/2019 3 :40 AM ORACLE APPLICATIONS DEVELOPER CBC WITHOUT DIFFERENTIAL Routine 11/21/2019 3:40 AM ORACLE APPLICATIONS DEVELOPER PHOSPHORUS Routine 11/21/2019 3:40 AM ORACLE APPLICATIONS DEVELOPER MAGNESIUM Routine 11/21/2019 3:40 AM ORACLE APPLICATIONS DEVELOPER BASIC METABOLIC PANEL Routine 11/21/2019 3:40 AM ORACLE APPLICATIONS DEVELOPER POCT GLUCOSE DEVICE Routine 11/20/2019 8 :05 PM ORACLE APPLICATIONS DEVELOPER ASPERGILLUS GALACTOMANNAN ANTIGEN STAT 11/20/2019 6:46 PM ORACLE APPLICATIONS DEVELOPER MOLD BLOOD CULTURE Timed 11/20/2019 6: 46 PM ORACLE APPLICATIONS DEVELOPER POCT GLUCOSE DEVICE Routine 11/20/2019 5 :15 PM ORACLE APPLICATIONS DEVELOPER CT CHEST W CONTRAST IP Routine 11/20/2019 5 :06 PM ORACLE APPLICATIONS DEVELOPER POCT GLUCOSE DEVICE Routine 11/20/2019 3 :08 PM ORACLE APPLICATIONS DEVELOPER POCT GLUCOSE DEVICE Routine 11/20/2019 1 :18 PM ORACLE APPLICATIONS DEVELOPER XR CHEST 1 VIEW IP Routine 11/20/2019 1:12 PM ORACLE APPLICATIONS DEVELOPER APTT STAT 11/20/2019 12:35 PM ORACLE APPLICATIONS DEVELOPER PROTIME-INR STAT 11/20/2019 12:35 PM ORACLE APPLICATIONS DEVELOPER FIBRINOGEN STAT 11/20/2019 12:35 PM ORACLE APPLICATIONS DEVELOPER TYPE AND SCREEN STAT 11/20/2019 12:35 PM ORACLE APPLICATIONS DEVELOPER RESPIRATORY PATHOGEN PANEL Timed 11/20/2019 12:31 PM ORACLE APPLICATIONS DEVELOPER BLOOD CULTURE Timed 11/20/2019 12:30 PM ORACLE APPLICATIONS DEVELOPER BLOOD CULTURE Timed 11/20/2019 12:30 PM ORACLE APPLICATIONS DEVELOPER ECG 12-LEAD STAT 11/20/2019 12:08 PM ORACLE APPLICATIONS DEVELOPER 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) documented in this encounter Results * POCT glucose (11/28/2019 11:25 AM ORACLE APPLICATIONS DEVELOPER) [facility] Glucose, POC 108 70 - 199 mg/dL [facility] Blood specimen (specimen) 11/28/2019 11:25 AM ORACLE APPLICATIONS DEVELOPER 11/28/2019 11:25 AM ORACLE APPLICATIONS DEVELOPER Josué Del Valle MD PhD LAB POCT ORDERABLES - DE VICE Final Result Performing Organization Address [facility] Co de Phone Number [facility] [place] [place] [address] * Potassium, whole blood (11/28/2019 8:27 AM ORACLE APPLICATIONS DEVELOPER) [facility] Potassium, bld 3.8 3.3 - 4.9 mmol/L [facility] Blood specimen (specimen) 11/28/2019 8:27 AM ORACLE APPLICATIONS DEVELOPER 11/28/2019 8:59 AM ORACLE APPLICATIONS DEVELOPER Josué Del Valle MD PhD LAB BLOOD ORDERABLES Fin al Result Performing Organization Address [facility] Co de Phone Number [facility] [place] [address] * POCT glucose (11/28/2019 8:26 AM ORACLE APPLICATIONS DEVELOPER) [facility] Glucose, POC 185 70 - 199 mg/dL [facility] Blood specimen (specimen) 11/28/2019 8:26 AM ORACLE APPLICATIONS DEVELOPER 11/28/2019 8:26 AM ORACLE APPLICATIONS DEVELOPER Josué Del Valle MD PhD LAB POCT ORDERABLES - DE VICE Final Result Performing Organization Address [facility] Co de Phone Number [facility] [place] [address] * (ABNORMAL) Manual Differential (11/28/2019 3:29 AM ORACLE APPLICATIONS DEVELOPER) [facility] Differential Manual [facility] Cells Counted 116 [facility] Neutrophil abs 24.2(H) 1.7 - 6.5 K/cumm [facility] Imm gran abs 0.0 0.0 - 0.1 K/cumm [facility] Lymphocyte abs 4.9(H) 0.8 - 3.3 K/cumm [facility] Monocyte abs 0.8 0.2 - 0.8 K/cumm [facility] Neutrophil pct 81.0 % [facility] Comment: Interpretive Data Percent cell count reference ranges are not reported, since discordance with absolute values may lead to misinterpretation of CBC data. Current Interpretive Data was last revised on 2018. Lymphocyte pct 16.4 % [facility] Comment: Interpretive Data Percent cell count reference ranges are not reported, since discordance with absolute values may lead to misinterpretation of CBC data. Current Interpretive Data was last revised on 2018. Monocyte pct 2.6 % [facility] Comment: Interpretive Data Percent cell count reference ranges are not reported, since discordance with absolute values may lead to misinterpretation of CBC data. Current Interpretive Data was last revised on 2018. RBC morphology Present(A) [facility] Anisocytosis Slight(A) [facility] Poikilocytosis Slight(A) [facility] Macrocytes 3-7/HPF(A) [facility] Platelet estimate Adequate [facility] Blood specimen (specimen) 11/28/2019 3:29 AM ORACLE APPLICATIONS DEVELOPER 11/28/2019 3:43 AM ORACLE APPLICATIONS DEVELOPER Iza Gordon NP LAB BLOOD ORDERABLES Edited Result - Final [facility] Department [place] [address] * (ABNORMAL) CBC without differential (11/28/2019 3:29 AM ORACLE APPLICATIONS DEVELOPER) WBC 29.8(H) 3.8 - 9.9 K/cumm [facility] Hgb 12.1(L) 13.0 - 17.5 g/dL [facility] Hct 38.0(L) 38.9 - 50.3 % [facility] Plt 270 150 - 400 K/cumm [facility] MPV 10.7 9.1 - 12.3 fL [facility] RBC 3.66(L) 4.30 - 5.80 M/cumm [facility] MCV 103.8(H) 81.3 - 96.4 fL [facility] MCH 33.1 27.1 - 33.3 pg [facility] MCHC 31.8(L) 32.3 - 35.7 g/dL [facility] RDW CV 14.8 11.1 - 14.9 % [facility] RDW SD 55.8(H) 35.7 - 48.1 fL [facility] NRBC abs 1.79(H) 0.00 - 0.01 K/cumm [facility] Blood specimen (specimen) 11/28/2019 3:29 AM ORACLE APPLICATIONS DEVELOPER 11/28/2019 3:43 AM ORACLE APPLICATIONS DEVELOPER Iza Gordon NP LAB BLOOD ORDERABLES Final Result [facility] Department [place] [address] * (ABNORMAL) Basic metabolic panel (11/28/2019 3:29 AM ORACLE APPLICATIONS DEVELOPER) Sodium 134(L) 135 - 145 mmol/L [facility] Potassium, pl See Comment 3.3 - 4.9 mmol/L [facility] Comment:Credited Hemolyzed Chloride 99 97 - 110 mmol/L [facility] CO2 30 22 - 32 mmol/L [facility] Anion gap 5 2 - 15 mmol/L [facility] BUN 39(H) 8 - 25 mg/dL [facility] Creatinine 0.92 0.80 - 1.30 mg/dL [facility] Glucose 293(H) 70 - 199 mg/dL [facility] Comment: Interpretive Data Fasting glucose [...] 2017. Calcium 9.3 8.5 - 10.3 mg/dL [facility] Blood specimen (specimen) 11/28/2019 3:29 AM ORACLE APPLICATIONS DEVELOPER 11/28/2019 3:43 AM ORACLE APPLICATIONS DEVELOPER Narrative [facility] - 11/28/2019 4:19 AM ORACLE APPLICATIONS DEVELOPER Daily except Saturday and . Morning draw. Iza Adriana Gordon NP LAB BLOOD ORDERABLES Final Result Performing Organization Address [facility] Co de Phone Number [facility] [place] [address] * Phosphorus (11/28/2019 3:29 AM ORACLE APPLICATIONS DEVELOPER) Phosphorus, pl 3.7 2.3 - 4.5 mg/dL [facility] Comment:Hemolyzed result may be falsely elevated Blood specimen (specimen) 11/28/2019 3:29 AM ORACLE APPLICATIONS DEVELOPER 11/28/2019 3:43 AM ORACLE APPLICATIONS DEVELOPER Iza Adriana Gordon NP LAB BLOOD ORDERABLES Final Result Performing Organization Address [facility] Co de Phone Number [facility] [place] [address] * Magnesium (11/28/2019 3:29 AM ORACLE APPLICATIONS DEVELOPER) Magnesium 2.0 1.4 - 2.5 mg/dL [facility] Blood specimen (specimen) 11/28/2019 3:29 AM ORACLE APPLICATIONS DEVELOPER 11/28/2019 3:43 AM ORACLE APPLICATIONS DEVELOPER [facility] BLOOD ORDERABLES Final Result Performing Organization Address [facility] Co de Phone Number [facility] [place] [address] * (ABNORMAL) POCT glucose (11/27/2019 10:22 PM ORACLE APPLICATIONS DEVELOPER) Glucose, POC 413(H) 70 - 199 mg/dL [facility] Blood specimen (specimen) 11/27/2019 10:22 PM ORACLE APPLICATIONS DEVELOPER 11/27/2019 10:22 PM ORACLE APPLICATIONS DEVELOPER Josué Del Valle MD PhD LAB POCT ORDERABLES - DE VICE Final Result Performing Organization Address [facility] [place] [place] [address] * (ABNORMAL) POCT glucose (11/27/2019 5:06 PM ORACLE APPLICATIONS DEVELOPER) [facility] Signature Glucose, POC 307(H) 70 - 199 mg/dL [facility] Blood specimen (specimen) 11/27/2019 5:06 PM ORACLE APPLICATIONS DEVELOPER 11/27/2019 5:06 PM ORACLE APPLICATIONS DEVELOPER Josué Del Valle MD PhD LAB POCT ORDERABLES - DE VICE Final Result Performing Organization Address [facility] [place] [place] [address] * POCT glucose (11/27/2019 11:19 AM ORACLE APPLICATIONS DEVELOPER) [facility] Signature Glucose, POC 123 70 - 199 mg/dL [facility] Blood specimen (specimen) 11/27/2019 11:19 AM ORACLE APPLICATIONS DEVELOPER 11/27/2019 11:19 AM ORACLE APPLICATIONS DEVELOPER Josué Del Valle MD PhD LAB POCT ORDERABLES - DE VICE Final Result Performing Organization Address [facility] [place] [address] * Vancomycin, trough (11/27/2019 10:33 AM ORACLE APPLICATIONS DEVELOPER) Vancomycin trough 11.1 10.0 - 20.9 mcg/mL [facility] Blood specimen (specimen) 11/27/2019 10:33 AM ORACLE APPLICATIONS DEVELOPER 11/27/2019 11:51 AM ORACLE APPLICATIONS DEVELOPER Josué Del Valle MD PhD LAB BLOOD ORDERABLES Fin al Result Performing Organization Address [facility] Co de Phone Number [facility] [place] [address] * (ABNORMAL) Potassium (11/27/2019 10:33 AM ORACLE APPLICATIONS DEVELOPER) [facility] Potassium, pl 5.9(H) 3.3 - 4.9 mmol/L [facility] Comment:Hemolyzed; Potassium value may be falsely elevated by as much as 1.1-1.6 mmol/L. Suggest redraw and reanalysis. Blood specimen (specimen) 11/27/2019 10:33 AM ORACLE APPLICATIONS DEVELOPER 11/27/2019 11:51 AM ORACLE APPLICATIONS DEVELOPER Josué Del Valle MD PhD LAB BLOOD ORDERABLES Fin al Result Performing Organization Address [facility] Phone Number [facility] Department [place] [address] * (ABNORMAL) POCT glucose (11/27/2019 7:17 AM ORACLE APPLICATIONS DEVELOPER) [facility] Glucose, POC 201(H) 70 - 199 mg/dL [facility] Blood specimen (specimen) 11/27/2019 7:17 AM ORACLE APPLICATIONS DEVELOPER 11/27/2019 7:17 AM ORACLE APPLICATIONS DEVELOPER Josué Del Valle MD PhD LAB POCT ORDERABLES - DE VICE Final Result Performing Organization Address [facility] Co de Phone Number [facility] [place] [address] * (ABNORMAL) Manual Differential (11/27/2019 4:56 AM ORACLE APPLICATIONS DEVELOPER) Differential Manual [facility] Cells Counted 115 [facility] Neutrophil abs 21.4(H) 1.7 - 6.5 K/cumm [facility] Imm gran abs 0.0 0.0 - 0.1 K/cumm [facility] Lymphocyte abs 5.1(H) 0.8 - 3.3 K/cumm [facility] Monocyte abs 1.2(H) 0.2 - 0.8 K/cumm [facility] Neutrophil pct 77.4 % [facility] Comment: Interpretive Data Percent cell count reference ranges are not reported, since discordance with absolute values may lead to misinterpretation of CBC data. Current Interpretive Data was last revised on 2018. Lymphocyte pct 18.3 % [facility] Comment: Interpretive Data Percent cell count reference ranges are not reported, since discordance with absolute values may lead to misinterpretation of CBC data. Current Interpretive Data was last revised on 2018. Monocyte pct 4.3 % [facility] Comment: Interpretive Data Percent cell count reference ranges are not reported, since discordance with absolute values may lead to misinterpretation of CBC data. Current Interpretive Data was last revised on 2018. RBC morphology Present(A) [facility] Anisocytosis Moderate(A) [facility] Poikilocytosis Slight(A) [facility] Macrocytes 8-15/HPF(A) [facility] Schistocytes 1-2/HPF(A) [facility] Platelet estimate Adequate [facility] Blood specimen (specimen) 11/27/2019 4:56 AM ORACLE APPLICATIONS DEVELOPER 11/27/2019 5:07 AM ORACLE APPLICATIONS DEVELOPER Iza Gordon NP LAB BLOOD ORDERABLES Edited Result - Final [facility] Department [place] [address] * (ABNORMAL) CBC without differential (11/27/2019 4:56 AM ORACLE APPLICATIONS DEVELOPER) WBC 27.7(H) 3.8 - 9.9 K/cumm [facility] Hgb 11.7(L) 13.0 - 17.5 g/dL [facility] Hct 35.9(L) 38.9 - 50.3 % [facility] Plt 266 150 - 400 K/cumm [facility] MPV 10.8 9.1 - 12.3 fL [facility] RBC 3.48(L) 4.30 - 5.80 M/cumm [facility] MCV 103.2(H) 81.3 - 96.4 fL [facility] MCH 33.6(H) 27.1 - 33.3 pg [facility] MCHC 32.6 32.3 - 35.7 g/dL [facility] RDW CV 14.6 11.1 - 14.9 % [facility] RDW SD 54.6(H) 35.7 - 48.1 fL [facility] NRBC abs 2.34(H) 0.00 - 0.01 K/cumm [facility] Blood specimen (specimen) 11/27/2019 4:56 AM ORACLE APPLICATIONS DEVELOPER 11/27/2019 5:07 AM ORACLE APPLICATIONS DEVELOPER Iza Gordon NP LAB BLOOD ORDERABLES Final Result [facility] [place] [address] * (ABNORMAL) Basic metabolic panel (11/27/2019 4:56 AM ORACLE APPLICATIONS DEVELOPER) Sodium 136 135 - 145 mmol/L [facility] Potassium, pl See Comment 3.3 - 4.9 mmol/L [facility] Comment:Credited Hemolyzed Chloride 103 97 - 110 mmol/L [facility] CO2 27 22 - 32 mmol/L [facility] Anion gap 6 2 - 15 mmol/L [facility] BUN 31(H) 8 - 25 mg/dL [facility] Creatinine 0.85 0.80 - 1.30 mg/dL [facility] Glucose 254(H) 70 - 199 mg/dL [facility] Comment: Interpretive Data Fasting glucose [...] 2017. Calcium 8.8 8.5 - 10.3 mg/dL [facility] Blood specimen (specimen) 11/27/2019 4:56 AM ORACLE APPLICATIONS DEVELOPER 11/27/2019 5:07 AM ORACLE APPLICATIONS DEVELOPER Narrative [facility] - 11/27/2019 6:41 AM ORACLE APPLICATIONS DEVELOPER Daily except Saturday and . Morning draw. Iza Adriana Gordon NP LAB BLOOD ORDERABLES Final Result Performing Organization Address City/[facility] Co de Phone Number [facility] [place] [address] * Phosphorus (11/27/2019 4:56 AM ORACLE APPLICATIONS DEVELOPER) Phosphorus, pl 3.0 2.3 - 4.5 mg/dL [facility] Comment:Hemolyzed result may be falsely elevated Blood specimen (specimen) 11/27/2019 4:56 AM ORACLE APPLICATIONS DEVELOPER 11/27/2019 5:07 AM ORACLE APPLICATIONS DEVELOPER Iza Adriana Gordon LAB BLOOD ORDERABLES Final Result [facility] [place] [address] * Magnesium (11/27/2019 4:56 AM ORACLE APPLICATIONS DEVELOPER) Magnesium 2.0 1.4 - 2.5 mg/dL [facility] Blood specimen (specimen) 11/27/2019 4:56 AM ORACLE APPLICATIONS DEVELOPER 11/27/2019 5:07 AM ORACLE APPLICATIONS DEVELOPER us Iza Gordon AUTO EMISSIONS TECHNICIAN LAB BLOOD ORDERABLES Final Result Performing Organization Address [facility] Phone Number [facility] [place] [address] * (ABNORMAL) POCT glucose (11/26/2019 8:52 PM ORACLE APPLICATIONS DEVELOPER) Glucose, POC 254(H) 70 - 199 mg/dL [facility] Blood specimen (specimen) 11/26/2019 8:52 PM ORACLE APPLICATIONS DEVELOPER 11/26/2019 8:52 PM ORACLE APPLICATIONS DEVELOPER us Josué Del Valle MD PhD LAB POCT ORDERABLES - DE VICE Final Result Performing Organization Address [facility] [place] [address] * (ABNORMAL) POCT glucose (11/26/2019 4:38 PM ORACLE APPLICATIONS DEVELOPER) Glucose, POC 282(H) 70 - 199 mg/dL [facility] Blood specimen (specimen) 11/26/2019 4:38 PM ORACLE APPLICATIONS DEVELOPER 11/26/2019 4:38 PM ORACLE APPLICATIONS DEVELOPER Josué Del Valle MD PhD LAB POCT ORDERABLES - DE VICE Final Result Performing Organization Address [facility] Phone Number [facility] [place] [address] * (ABNORMAL) POCT glucose (11/26/2019 11:46 AM ORACLE APPLICATIONS DEVELOPER) Glucose, POC 271(H) 70 - 199 mg/dL [facility] Blood specimen (specimen) 11/26/2019 11:46 AM ORACLE APPLICATIONS DEVELOPER 11/26/2019 11:46 AM ORACLE APPLICATIONS DEVELOPER us Josué Del Valle MD PhD LAB POCT ORDERABLES - DE VICE Final Result Performing Organization Address [facility] Co de Phone Number [facility] Department [place] [address] * Tacrolimus level trough (11/26/2019 8:42 AM ORACLE APPLICATIONS DEVELOPER) Tacrolimus, trough 1.6 ng/mL [facility] Comment: Interpretive Data Testing performed by liquid chromatography-tandem mass spectrometry. ??Therapeutic concentrations vary depending on type of transplanted organ and time elapsed since transplant. ??Typical trough concentrations range from 5-15 ng/mL. ??This test was developed and its performance characteristics determined by the [facility] consistent with CLIA requirements. ??This test has not been cleared or approved by the [place] Food and Drug administration. ??Current interpretive data last reviewed 2019. Blood specimen (specimen) 11/26/2019 8:42 AM ORACLE APPLICATIONS DEVELOPER 11/26/2019 8:55 AM ORACLE APPLICATIONS DEVELOPER Iza Gordon AUTO EMISSIONS TECHNICIAN LAB BLOOD ORDERABLES Final Result Performing Organization Address [facility] de Phone Number [facility] Department [place] [address] * (ABNORMAL) POCT glucose (11/26/2019 7:11 AM ORACLE APPLICATIONS DEVELOPER) Glucose, POC 312(H) 70 - 199 mg/dL [facility] Blood specimen (specimen) 11/26/2019 7:11 AM ORACLE APPLICATIONS DEVELOPER 11/26/2019 7:11 AM ORACLE APPLICATIONS DEVELOPER Josué Del Valle MD PhD LAB POCT ORDERABLES - DE VICE Final Result Performing Organization Address [facility] Co de Phone Number [facility] [place] [address] * Phosphorus (11/26/2019 4:23 AM ORACLE APPLICATIONS DEVELOPER) Phosphorus, pl 3.5 2.3 - 4.5 mg/dL [facility] Blood specimen (specimen) 11/26/2019 4:23 AM ORACLE APPLICATIONS DEVELOPER 11/26/2019 5:30 AM ORACLE APPLICATIONS DEVELOPER Josué Del Valle MD PhD LAB BLOOD ORDERABLES Fin al Result Performing Organization Address City/[facility] Co de Phone Number [facility] [place] [address] * Magnesium (11/26/2019 4:23 AM ORACLE APPLICATIONS DEVELOPER) Pathologist [facility] Magnesium 1.8 1.4 - 2.5 mg/dL [facility] Blood specimen (specimen) 11/26/2019 4:23 AM ORACLE APPLICATIONS DEVELOPER 11/26/2019 5:30 AM ORACLE APPLICATIONS DEVELOPER Josué Del Valle MD PhD LAB BLOOD ORDERABLES Fin al Result Performing Organization Address [facility] de Phone Number [facility] Department [place] [address] * (ABNORMAL) Manual Differential (11/26/2019 4:23 AM ORACLE APPLICATIONS DEVELOPER) [facility] Differential Manual [facility] Cells Counted 115 [facility] Neutrophil abs 17.1(H) 1.7 - 6.5 K/cumm [facility] Imm gran abs 1.0(H) 0.0 - 0.1 K/cumm [facility] Lymphocyte abs 2.7 0.8 - 3.3 K/cumm [facility] Monocyte abs 1.4(H) 0.2 - 0.8 K/cumm [facility] Neutrophil pct 77.4 % [facility] Comment: Interpretive Data Percent cell count reference ranges are not reported, since discordance with absolute values may lead to misinterpretation of CBC data. Current Interpretive Data was last revised on 2018. Lymphocyte pct 12.2 % [facility] Comment: Interpretive Data Percent cell count reference ranges are not reported, since discordance with absolute values may lead to misinterpretation of CBC data. Current Interpretive Data was last revised on 2018. Monocyte pct 6.1 % [facility] Comment: Interpretive Data Percent cell count reference ranges are not reported, since discordance with absolute values may lead to misinterpretation of CBC data. Current Interpretive Data was last revised on 2018. Metamyelocyte pct 2.6 % [facility] Myelocyte pct 1.7 % [facility] RBC morphology Present(A) [facility] Polychromasia 3-7/HPF(A) [facility] Anisocytosis Slight(A) [facility] Poikilocytosis Moderate(A) [facility] Macrocytes 3-7/HPF(A) [facility] Platelet estimate Adequate [facility] Blood specimen (specimen) 11/26/2019 4:23 AM ORACLE APPLICATIONS DEVELOPER 11/26/2019 5:16 AM ORACLE APPLICATIONS DEVELOPER Iza Gordon NP LAB BLOOD ORDERABLES Edited Result - Final [facility] Department [place] [address] * (ABNORMAL) CBC without differential (11/26/2019 4:23 AM ORACLE APPLICATIONS DEVELOPER) WBC 22.1(H) 3.8 - 9.9 K/cumm [facility] Hgb 13.1 13.0 - 17.5 g/dL [facility] Hct 40.8 38.9 - 50.3 % [facility] Plt 278 150 - 400 K/cumm [facility] MPV 11.8 9.1 - 12.3 fL [facility] RBC 3.88(L) 4.30 - 5.80 M/cumm [facility] MCV 105.2(H) 81.3 - 96.4 fL [facility] MCH 33.8(H) 27.1 - 33.3 pg [facility] MCHC 32.1(L) 32.3 - 35.7 g/dL [facility] RDW CV 14.9 11.1 - 14.9 % [facility] RDW SD 56.8(H) 35.7 - 48.1 fL [facility] NRBC abs 2.94(H) 0.00 - 0.01 K/cumm [facility] Blood specimen (specimen) 11/26/2019 4:23 AM ORACLE APPLICATIONS DEVELOPER 11/26/2019 5:16 AM ORACLE APPLICATIONS DEVELOPER Iza Gordon NP LAB BLOOD ORDERABLES Edited Result - Final Performing Organization Address [facility] [place] [address] * (ABNORMAL) Lactate dehydrogenase (LD) (11/26/2019 4:23 AM ORACLE APPLICATIONS DEVELOPER) Lactate dehydrogenase (LDH) 676(H) 100 - 250 Units/L [facility] Comment:Hemolyzed result may be falsely elevated Blood specimen (specimen) 11/26/2019 4:23 AM ORACLE APPLICATIONS DEVELOPER 11/26/2019 5:30 AM ORACLE APPLICATIONS DEVELOPER Narrative [facility] - 11/26/2019 6:04 AM ORACLE APPLICATIONS DEVELOPER Saturday and only. Morning draw. Result [facility] Iza Adriana Gordon NP LAB BLOOD ORDERABLES Final Result Performing Organization Address [place] [address] * Uric acid (11/26/2019 4:23 AM ORACLE APPLICATIONS DEVELOPER) Uric acid 3.4 3.0 - 8.0 mg/dL [facility] Blood specimen (specimen) 11/26/2019 4:23 AM ORACLE APPLICATIONS DEVELOPER 11/26/2019 5:30 AM ORACLE APPLICATIONS DEVELOPER Narrative [facility] - 11/26/2019 6:04 AM ORACLE APPLICATIONS DEVELOPER Saturday and only. Morning draw. . Iza Adriana Gordon NP LAB BLOOD ORDERABLES Final Result Performing Organization Address City/[facility]/ZIP Co de Phone Number [facility] [place] [address] * (ABNORMAL) Comprehensive metabolic panel (11/26/2019 4:23 AM ORACLE APPLICATIONS DEVELOPER) Sodium 140 135 - 145 mmol/L [facility] Potassium, pl 5.0(H) 3.3 - 4.9 mmol/L [facility] Comment:Hemolyzed; Potassium value may be falsely elevated by as much as 0.3-0.5 mmol/L. Suggest redraw and reanalysis. Chloride 104 97 - 110 mmol/L [facility] CO2 30 22 - 32 mmol/L [facility] Anion gap 6 2 - 15 mmol/L [facility] BUN 30(H) 8 - 25 mg/dL [facility] Creatinine 0.76(L) 0.80 - 1.30 mg/dL [facility] Glucose 274(H) 70 - 199 mg/dL [facility] Comment: Interpretive Data Fasting glucose [...] 2017. Calcium 9.1 8.5 - 10.3 mg/dL [facility] Bilirubin, total 0.3 0.1 - 1.2 mg/dL [facility] Protein, pl 7.0 6.5 - 8.5 g/dL [facility] Albumin 3.7 3.5 - 5.0 g/dL [facility] Alk phos 103 40 - 130 Units/L [facility] ALT 43 7 - 55 Units/L [facility] AST 38 10 - 50 Units/L [facility] Comment:Hemolyzed; result ma y be falsely elevated Blood specimen (specimen) 11/26/2019 4:23 AM ORACLE APPLICATIONS DEVELOPER 11/26/2019 5:30 AM ORACLE APPLICATIONS DEVELOPER Narrative [facility] - 11/26/2019 6:04 AM ORACLE APPLICATIONS DEVELOPER Saturday and only. Morning draw. Iza Gordon NP LAB BLOOD ORDERABLES Final Result Performing Organization Address [facility] [place] [address] * Type and screen (11/26/2019 4:23 AM ORACLE APPLICATIONS DEVELOPER) Pathologist [facility] [place] ABO Rh A Positive [facility] Ursula, indirect Negative [facility] Blood specimen (specimen) 11/26/2019 4:23 AM ORACLE APPLICATIONS DEVELOPER 11/26/2019 5:35 AM ORACLE APPLICATIONS DEVELOPER Narrative [facility] - 11/26/2019 6:45 AM ORACLE APPLICATIONS DEVELOPER Has the patient had Daratumumab (Darzalex) in the past 6 months?->Unknown Iza Gordon NP LAB BLOOD BANK TEST ORDERABLES Final Result Performing Organization Address [facility] Co de Phone Number [facility] Department [place] [address] * (ABNORMAL) POCT glucose (11/25/2019 11:33 PM ORACLE APPLICATIONS DEVELOPER) [facility] Glucose, POC 202(H) 70 - 199 mg/dL [facility] Blood specimen (specimen) 11/25/2019 11:33 PM ORACLE APPLICATIONS DEVELOPER 11/25/2019 11:33 PM ORACLE APPLICATIONS DEVELOPER Josué Del Valle MD PhD LAB POCT ORDERABLES - DE VICE Final Result Performing Organization Address [facility] [place] [address] * (ABNORMAL) POCT glucose (11/25/2019 8:57 PM ORACLE APPLICATIONS DEVELOPER) Pathologist [facility] Glucose, POC 272(H) 70 - 199 mg/dL [facility] Blood specimen (specimen) 11/25/2019 8:57 PM ORACLE APPLICATIONS DEVELOPER 11/25/2019 8:57 PM ORACLE APPLICATIONS DEVELOPER us Josué Del Valle MD PhD LAB POCT ORDERABLES - DE VICE Final Result Performing Organization Address [facility] Co de Phone Number [facility] [place] [address] * (ABNORMAL) POCT glucose (11/25/2019 5:05 PM ORACLE APPLICATIONS DEVELOPER) Pathologist [facility] Glucose, POC 305(H) 70 - 199 mg/dL [facility] Blood specimen (specimen) 11/25/2019 5:05 PM ORACLE APPLICATIONS DEVELOPER 11/25/2019 5:05 PM ORACLE APPLICATIONS DEVELOPER us Josué Del Valle MD PhD LAB POCT ORDERABLES - DE VICE Final Result Performing Organization Address [facility] Co pa Phone Number [facility] [place] [address] * ECG 12 lead (11/25/2019 1:31 PM ORACLE APPLICATIONS DEVELOPER) [facility] Ventricular Rate EKG/Min 71 BPM [facility] Atrial Rate 71 BPM [facility] ND-Interval (MSEC) 102 ms [facility] QRS-Interval (MSEC) 102 ms [facility] QT-Interval (MSEC) 374 ms [facility] QTc 406 ms [facility] P Rousseau 17 degrees [facility] R Rousseau 73 degrees [facility] T Rousseau 58 degrees [facility] Diagnosis Sinus rhythm with short ND relative RAD, consider lung dx V6 lead is likely misplaced When compared with ECG of 20-NOV-2019 12:08, T wave amplitude has decreased in Lateral leads This ECG was personally interpreted by the attending physician indicated below Confirmed by JOSE/BRI APBLO ([id number]) on 11/26/2019 11:55:42 AM [facility] 11/25/2019 1:31 PM ORACLE APPLICATIONS DEVELOPER 11/26/2019 11:55 AM ORACLE APPLICATIONS DEVELOPER us Lissy Warner AUTO EMISSIONS TECHNICIAN ECG ORDERABLES Final Res ult Performing Organization Address [facility]/ZIP Co de Phone Number [facility] * POCT glucose (11/25/2019 11:50 AM ORACLE APPLICATIONS DEVELOPER) Glucose, POC 121 70 - 199 mg/dL [facility] Blood specimen (specimen) 11/25/2019 11:50 AM ORACLE APPLICATIONS DEVELOPER 11/25/2019 11:50 AM ORACLE APPLICATIONS DEVELOPER us Josué Del Valle MD PhD LAB POCT ORDERABLES - DE VICE Final Result Performing Organization Address [facility]/[place] [address] * (ABNORMAL) POCT glucose (11/25/2019 8:07 AM ORACLE APPLICATIONS DEVELOPER) Glucose, POC 213(H) 70 - 199 mg/dL [facility] Blood specimen (specimen) 11/25/2019 8:07 AM ORACLE APPLICATIONS DEVELOPER 11/25/2019 8:07 AM ORACLE APPLICATIONS DEVELOPER us Josué Del Valle MD PhD LAB POCT ORDERABLES - DE VICE Final Result Performing Organization Address [facility] Co pa Phone Number [facility] [place] [address] * (ABNORMAL) POCT glucose (11/25/2019 5:15 AM ORACLE APPLICATIONS DEVELOPER) Glucose, POC 425(H) 70 - 199 mg/dL [facility] Blood specimen (specimen) 11/25/2019 5:15 AM ORACLE APPLICATIONS DEVELOPER 11/25/2019 5:15 AM ORACLE APPLICATIONS DEVELOPER us Josué Del Valle MD PhD LAB POCT ORDERABLES - DE VICE Final Result Performing Organization Address [facility] Co pa Phone Number [facility] [place] [address] * Critical Result Callback Chemistry (11/25/2019 3:19 AM ORACLE APPLICATIONS DEVELOPER) Date Notified [id number] [facility] Time Notified 422 [facility] TestName glucose [facility] Called/Read Back narcisa rivero [facility] Credentials RN [facility] Called By nikki [facility] Blood specimen (specimen) 11/25/2019 3:19 AM ORACLE APPLICATIONS DEVELOPER 11/25/2019 3:46 AM ORACLE APPLICATIONS DEVELOPER Iza Gordon NP LAB BLOOD ORDERABLES Final Result [facility] Department [place] [address] * (ABNORMAL) Manual Differential (11/25/2019 3:19 AM ORACLE APPLICATIONS DEVELOPER) Differential Manual [facility] Cells Counted 113 [facility] Neutrophil abs 16.6(H) 1.7 - 6.5 K/cumm [facility] Imm gran abs 1.2(H) 0.0 - 0.1 K/cumm [facility] Lymphocyte abs 0.9 0.8 - 3.3 K/cumm [facility] Monocyte abs 1.2(H) 0.2 - 0.8 K/cumm [facility] Neutrophil pct 83.2 % [facility] Comment: Interpretive Data Percent cell count reference ranges are not reported, since discordance with absolute values may lead to misinterpretation of CBC data. Current Interpretive Data was last revised on 2018. Lymphocyte pct 4.4 % [facility] Comment: Interpretive Data Percent cell count reference ranges are not reported, since discordance with absolute values may lead to misinterpretation of CBC data. Current Interpretive Data was last revised on 2018. Monocyte pct 6.2 % [facility] Comment: Interpretive Data Percent cell count reference ranges are not reported, since discordance with absolute values may lead to misinterpretation of CBC data. Current Interpretive Data was last revised on 2018. Metamyelocyte pct 0.9 % [facility] Myelocyte pct 4.4 % [facility] Promyelocyte pct 0.9 % [facility] RBC morphology Present(A) [facility] Anisocytosis Moderate(A) [facility] Poikilocytosis Slight(A) [facility] Macrocytes 3-7/HPF(A) [facility] Platelet estimate Adequate [facility] Blood specimen (specimen) 11/25/2019 3:19 AM ORACLE APPLICATIONS DEVELOPER 11/25/2019 3:46 AM ORACLE APPLICATIONS DEVELOPER Iza Gordon NP LAB BLOOD ORDERABLES Edited Result - Final [facility] Department [place] [address] * (ABNORMAL) CBC without differential (11/25/2019 3:19 AM ORACLE APPLICATIONS DEVELOPER) WBC 19.9(H) 3.8 - 9.9 K/cumm [facility] Hgb 12.0(L) 13.0 - 17.5 g/dL [facility] Hct 37.9(L) 38.9 - 50.3 % [facility] Plt 265 150 - 400 K/cumm [facility] MPV 11.4 9.1 - 12.3 fL [facility] RBC 3.63(L) 4.30 - 5.80 M/cumm [facility] MCV 104.4(H) 81.3 - 96.4 fL [facility] MCH 33.1 27.1 - 33.3 pg [facility] MCHC 31.7(L) 32.3 - 35.7 g/dL [facility] RDW CV 14.6 11.1 - 14.9 % [facility] RDW SD 56.0(H) 35.7 - 48.1 fL [facility] NRBC abs 1.99(H) 0.00 - 0.01 K/cumm [facility] Blood specimen (specimen) 11/25/2019 3:19 AM ORACLE APPLICATIONS DEVELOPER 11/25/2019 3:46 AM ORACLE APPLICATIONS DEVELOPER Iza Gordon NP LAB BLOOD ORDERABLES Final Result Performing Organization Address City/[facility]/ZIP Co de Phone Number [facility] [place] [address] * (ABNORMAL) Basic metabolic panel (11/25/2019 3:19 AM ORACLE APPLICATIONS DEVELOPER) Sodium 133(L) 135 - 145 mmol/L [facility] Potassium, pl 5.2(H) 3.3 - 4.9 mmol/L [facility] Comment:Hemolyzed; Potassium value may be falsely elevated by as much as 0.6-1.0 mmol/L. Suggest redraw and reanalysis. Chloride 96(L) 97 - 110 mmol/L [facility] CO2 28 22 - 32 mmol/L [facility] Anion gap 9 2 - 15 mmol/L [facility] BUN 35(H) 8 - 25 mg/dL [facility] Creatinine 0.84 0.80 - 1.30 mg/dL [facility] Glucose 528(C) 70 - 199 mg/dL [facility] Comment: Interpretive Data Fasting glucose [...] 2017. Calcium 8.5 8.5 - 10.3 mg/dL [facility] Blood specimen (specimen) 11/25/2019 3:19 AM ORACLE APPLICATIONS DEVELOPER 11/25/2019 3:46 AM ORACLE APPLICATIONS DEVELOPER Narrative [facility] - 11/25/2019 4:22 AM ORACLE APPLICATIONS DEVELOPER Daily except Saturday and . Morning draw. Iza Gordon NP LAB BLOOD ORDERABLES Final Result Performing Organization Address [facility]/ZIP Co de Phone Number [facility] [place] [address] * Phosphorus (11/25/2019 3:19 AM ORACLE APPLICATIONS DEVELOPER) [facility] Phosphorus, pl 2.6 2.3 - 4.5 mg/dL [facility] Blood specimen (specimen) 11/25/2019 3:19 AM ORACLE APPLICATIONS DEVELOPER 11/25/2019 3:46 AM ORACLE APPLICATIONS DEVELOPER Iza Adriana Gordon AUTO EMISSIONS TECHNICIAN LAB BLOOD [place] [address] * Magnesium (11/25/2019 3:19 AM ORACLE APPLICATIONS DEVELOPER) [facility] Magnesium 1.9 1.4 - 2.5 mg/dL [facility] Blood specimen (specimen) 11/25/2019 3:19 AM ORACLE APPLICATIONS DEVELOPER 11/25/2019 3:46 AM ORACLE APPLICATIONS DEVELOPER Iza Adriana Gordon AUTO EMISSIONS TECHNICIAN LAB BLOOD ORDERABLES Final Result Performing Organization Address City/[facility]/ZIP Co de Phone Number [facility] [place] [address] * Vancomycin, random (11/25/2019 3:19 AM ORACLE APPLICATIONS DEVELOPER) [facility] Vancomycin random 16.3 mcg/mL [facility] Blood specimen (specimen) 11/25/2019 3:19 AM ORACLE APPLICATIONS DEVELOPER 11/25/2019 3:46 AM ORACLE APPLICATIONS DEVELOPER Iza Adriana Gordon AUTO EMISSIONS TECHNICIAN LAB BLOOD ORDERABLES Final Result Performing Organization Address City/[facility]/[place] [address] * (ABNORMAL) POCT glucose (11/25/2019 3:16 AM ORACLE APPLICATIONS DEVELOPER) Glucose, POC 493(C) 70 - 199 mg/dL [facility] Glucose comment 1 Doctor Notified [facility] Blood specimen (specimen) 11/25/2019 3:16 AM ORACLE APPLICATIONS DEVELOPER 11/25/2019 3:16 AM ORACLE APPLICATIONS DEVELOPER us Josué Del Valle MD PhD LAB POCT ORDERABLES - DE VICE Final Result Performing Organization Address [facility] Co de Phone Number [facility] [place] [address] * (ABNORMAL) POCT glucose (11/24/2019 11:54 PM ORACLE APPLICATIONS DEVELOPER) Glucose, POC 376(H) 70 - 199 mg/dL [facility] Blood specimen (specimen) 11/24/2019 11:54 PM ORACLE APPLICATIONS DEVELOPER 11/24/2019 11:54 PM ORACLE APPLICATIONS DEVELOPER us Josué Del Valle MD PhD LAB POCT ORDERABLES - DE VICE Final Result Performing Organization Address [facility] Co de Phone Number [facility] [place] [address] * (ABNORMAL) POCT glucose (11/24/2019 9:10 PM ORACLE APPLICATIONS DEVELOPER) Glucose, POC 354(H) 70 - 199 mg/dL [facility] Blood specimen (specimen) 11/24/2019 9:10 PM ORACLE APPLICATIONS DEVELOPER 11/24/2019 9:10 PM ORACLE APPLICATIONS DEVELOPER Josué Del Valle MD PhD LAB POCT ORDERABLES - DE VICE Final Result Performing Organization Address City/[facility] [place] [address] * POCT glucose (11/24/2019 5:17 PM ORACLE APPLICATIONS DEVELOPER) Glucose, POC 195 70 - 199 mg/dL [facility] Blood specimen (specimen) 11/24/2019 5:17 PM ORACLE APPLICATIONS DEVELOPER 11/24/2019 5:17 PM ORACLE APPLICATIONS DEVELOPER Josué Del Valle MD PhD LAB POCT ORDERABLES - DE VICE Final Result Performing Organization Address [facility] Co de Phone Number [facility] Department [place] [address] * (ABNORMAL) POCT glucose (11/24/2019 1:12 PM ORACLE APPLICATIONS DEVELOPER) Glucose, POC 211(H) 70 - 199 mg/dL [facility] Blood specimen (specimen) 11/24/2019 1:12 PM ORACLE APPLICATIONS DEVELOPER 11/24/2019 1:12 PM ORACLE APPLICATIONS DEVELOPER Josué Del Valle MD PhD LAB POCT ORDERABLES - DE VICE Final Result Performing Organization Address [facility] Phone Number [facility] [place] [address] * Critical Result Callback Chemistry (11/24/2019 12:06 PM ORACLE APPLICATIONS DEVELOPER) Date Notified [id number] [facility] Time Notified 12:59 [facility] TestName Vancomycin Tr ZULEMA DENT Called/Read Back Critical result called to and read back by Marisa CARLOS) on 11/24/2019 12:59:13 ORACLE APPLICATIONS DEVELOPER to . ZULEMA DENT Credentials BECKI DENT Called By ZULEMA [facility] Blood specimen (specimen) 11/24/2019 12:06 PM ORACLE APPLICATIONS DEVELOPER 11/24/2019 12:22 PM ORACLE APPLICATIONS DEVELOPER Josué Del Valle MD PhD LAB BLOOD ORDERABLES Fin al Result Performing Organization Address [facility] Co de Phone Number [facility] [place] [address] * (ABNORMAL) Vancomycin, trough Please draw before 4th dose of 1000 mg. (11/24/2019 12:06 PM ORACLE APPLICATIONS DEVELOPER) Vancomycin trough 22.7(C) 10.0 - 20.9 mcg/mL [facility] Blood specimen (specimen) 11/24/2019 12:06 PM ORACLE APPLICATIONS DEVELOPER 11/24/2019 12:22 PM ORACLE APPLICATIONS DEVELOPER Narrative [facility] - 11/24/2019 12:51 PM ORACLE APPLICATIONS DEVELOPER Please draw before 4th dose of 1000 mg. Josué Del Valle MD PhD LAB BLOOD ORDERABLES Fin al Result Performing Organization Address City/[facility]/ZIP Co de Phone Number [facility] Department [place] [address] * Tacrolimus level trough (11/24/2019 12:04 PM ORACLE APPLICATIONS DEVELOPER) Pathologist [facility] Tacrolimus, trough 1.0 ng/mL [facility] Comment: Interpretive Data Testing performed by liquid chromatography-tandem mass spectrometry. ??Therapeutic concentrations vary depending on type of transplanted organ and time elapsed since transplant. ??Typical trough concentrations range from 5-15 ng/mL. ??This test was developed and its performance characteristics determined by the [facility] consistent with CLIA requirements. ??This test has not been cleared or approved by the [place] Food and Drug administration. ??Current interpretive data last reviewed 2019. Blood specimen (specimen) 11/24/2019 12:04 PM ORACLE APPLICATIONS DEVELOPER 11/24/2019 12:22 PM ORACLE APPLICATIONS DEVELOPER Iza Gordon NP LAB BLOOD ORDERABLES Final Result Performing Organization Address [facility]/ZIP Co de Phone Number [facility] Department [place] [address] * (ABNORMAL) POCT glucose (11/24/2019 7:34 AM ORACLE APPLICATIONS DEVELOPER) Glucose, POC 211(H) 70 - 199 mg/dL [facility] Blood specimen (specimen) 11/24/2019 7:34 AM ORACLE APPLICATIONS DEVELOPER 11/24/2019 7:34 AM ORACLE APPLICATIONS DEVELOPER us Josué Del Valle MD PhD LAB POCT ORDERABLES - DE VICE Final Result ZULEMA [facility] Department [place] [address] * (ABNORMAL) Manual Differential (11/24/2019 4:43 AM ORACLE APPLICATIONS DEVELOPER) Differential Manual [facility] Cells Counted 113 [facility] Neutrophil abs 17.8(H) 1.7 - 6.5 K/cumm [facility] Imm gran abs 0.2(H) 0.0 - 0.1 K/cumm [facility] Lymphocyte abs 2.7 0.8 - 3.3 K/cumm [facility] Monocyte abs 0.8 0.2 - 0.8 K/cumm [facility] Neutrophil pct 83.2 % [facility] Comment: Interpretive Data Percent cell count reference ranges are not reported, since discordance with absolute values may lead to misinterpretation of CBC data. Current Interpretive Data was last revised on 2018. Lymphocyte pct 12.4 % [facility] Comment: Interpretive Data Percent cell count reference ranges are not reported, since discordance with absolute values may lead to misinterpretation of CBC data. Current Interpretive Data was last revised on 2018. Monocyte pct 3.5 % [facility] Comment: Interpretive Data Percent cell count reference ranges are not reported, since discordance with absolute values may lead to misinterpretation of CBC data. Current Interpretive Data was last revised on 2018. Metamyelocyte pct 0.9 % [facility] RBC morphology Present(A) [facility] Anisocytosis Slight(A) [facility] Poikilocytosis Slight(A) [facility] Platelet estimate Adequate [facility] Morphology scrn See Comment [facility] Comment:PLT: Although platet s are clumped on smear; estimate appears adequate to increased in number. Blood specimen (specimen) 11/24/2019 4:43 AM ORACLE APPLICATIONS DEVELOPER 11/24/2019 4:55 AM ORACLE APPLICATIONS DEVELOPER Iza Gordon NP LAB BLOOD ORDERABLES Edited Result - Final [facility] [place] [address] * (ABNORMAL) CBC without differential (11/24/2019 4:43 AM ORACLE APPLICATIONS DEVELOPER) WBC 21.5(H) 3.8 - 9.9 K/cumm [facility] Hgb 12.4(L) 13.0 - 17.5 g/dL [facility] Hct 38.4(L) 38.9 - 50.3 % [facility] Plt 268 150 - 400 K/cumm [facility] MPV 11.4 9.1 - 12.3 fL [facility] RBC 3.73(L) 4.30 - 5.80 M/cumm [facility] MCV 102.9(H) 81.3 - 96.4 fL [facility] MCH 33.2 27.1 - 33.3 pg [facility] MCHC 32.3 32.3 - 35.7 g/dL [facility] RDW CV 14.3 11.1 - 14.9 % [facility] RDW SD 53.9(H) 35.7 - 48.1 fL [facility] NRBC abs 1.02(H) 0.00 - 0.01 K/cumm [facility] Blood specimen (specimen) 11/24/2019 4:43 AM ORACLE APPLICATIONS DEVELOPER 11/24/2019 4:55 AM ORACLE APPLICATIONS DEVELOPER Iza Gordon NP LAB BLOOD ORDERABLES Final Result [facility] [place] [address] * (ABNORMAL) Basic metabolic panel (11/24/2019 4:43 AM ORACLE APPLICATIONS DEVELOPER) Sodium 140 135 - 145 mmol/L [facility] Potassium, pl 5.0(H) 3.3 - 4.9 mmol/L [facility] Comment: Hemolyzed; Potassium value may be falsely elevated by as much as 0.6-1.0 mmol/L. ??Suggest redraw and reanalysis. Repeated and Verified Chloride 102 97 - 110 mmol/L [facility] Comment:Repeated and Verifie d CO2 31 22 - 32 mmol/L [facility] Anion gap 7 2 - 15 mmol/L [facility] BUN 28(H) 8 - 25 mg/dL [facility] Creatinine 0.75(L) 0.80 - 1.30 mg/dL [facility] Glucose 243(H) 70 - 199 mg/dL [facility] Comment: Interpretive Data Fasting glucose [...] 2017. Calcium 9.0 8.5 - 10.3 mg/dL [facility] Blood specimen (specimen) 11/24/2019 4:43 AM ORACLE APPLICATIONS DEVELOPER 11/24/2019 4:55 AM ORACLE APPLICATIONS DEVELOPER Narrative [facility] - 11/24/2019 5:34 AM ORACLE APPLICATIONS DEVELOPER Daily except Saturday and . Morning draw. Iza Gordon NP LAB BLOOD ORDERABLES Final Result [facility] [place] [address] * Phosphorus (11/24/2019 4:43 AM ORACLE APPLICATIONS DEVELOPER) Phosphorus, pl 3.4 2.3 - 4.5 mg/dL [facility] Blood specimen (specimen) 11/24/2019 4:43 AM ORACLE APPLICATIONS DEVELOPER 11/24/2019 4:55 AM ORACLE APPLICATIONS DEVELOPER Izardaha Gordon AUTO EMISSIONS TECHNICIAN LAB BLOOD ORDERABLES Final Result Performing Organization Address [facility] Phone Number [facility] [place] [address] * Magnesium (11/24/2019 4:43 AM ORACLE APPLICATIONS DEVELOPER) Magnesium 1.9 1.4 - 2.5 mg/dL [facility] Blood specimen (specimen) 11/24/2019 4:43 AM ORACLE APPLICATIONS DEVELOPER 11/24/2019 4:55 AM ORACLE APPLICATIONS DEVELOPER Iza Adriana Heidi AUTO EMISSIONS TECHNICIAN LAB BLOOD ORDERABLES Final Result Performing Organization Address [facility] Phone Number [facility] [place] [address] * (ABNORMAL) POCT glucose (11/24/2019 4:38 AM ORACLE APPLICATIONS DEVELOPER) Glucose, POC 237(H) 70 - 199 mg/dL [facility] Blood specimen (specimen) 11/24/2019 4:38 AM ORACLE APPLICATIONS DEVELOPER 11/24/2019 4:38 AM ORACLE APPLICATIONS DEVELOPER us Josué Del Valle MD PhD LAB POCT ORDERABLES - DE VICE Final Result Performing Organization Address [facility] Phone Number [facility] Department [place] [address] * (ABNORMAL) POCT glucose (11/24/2019 2:13 AM ORACLE APPLICATIONS DEVELOPER) Glucose, POC 225(H) 70 - 199 mg/dL [facility] Blood specimen (specimen) 11/24/2019 2:13 AM ORACLE APPLICATIONS DEVELOPER 11/24/2019 2:13 AM ORACLE APPLICATIONS DEVELOPER Josué Del Valle MD PhD LAB POCT ORDERABLES - DE VICE Final Result Performing Organization Address [facility]/ZIP Co de Phone Number [facility] [place] [address] * (ABNORMAL) POCT glucose (11/24/2019 12:47 AM ORACLE APPLICATIONS DEVELOPER) Glucose, POC 205(H) 70 - 199 mg/dL [facility] Blood specimen (specimen) 11/24/2019 12:47 AM ORACLE APPLICATIONS DEVELOPER 11/24/2019 12:47 AM ORACLE APPLICATIONS DEVELOPER us Josué Del Valle MD PhD LAB POCT ORDERABLES - DE VICE Final Result Performing Organization Address [facility] [place] [address] * (ABNORMAL) POCT glucose (11/23/2019 11:20 PM ORACLE APPLICATIONS DEVELOPER) Glucose, POC 241(H) 70 - 199 mg/dL [facility] Blood specimen (specimen) 11/23/2019 11:20 PM ORACLE APPLICATIONS DEVELOPER 11/23/2019 11:20 PM ORACLE APPLICATIONS DEVELOPER us Josué Del Valle MD PhD LAB POCT ORDERABLES - DE VICE Final Result Performing Organization Address [facility] [place] [address] * (ABNORMAL) POCT glucose (11/23/2019 9:45 PM ORACLE APPLICATIONS DEVELOPER) Glucose, POC 367(H) 70 - 199 mg/dL [facility] Blood specimen (specimen) 11/23/2019 9:45 PM ORACLE APPLICATIONS DEVELOPER 11/23/2019 9:45 PM ORACLE APPLICATIONS DEVELOPER us Josué Del Valle MD PhD LAB POCT ORDERABLES - DE VICE Final Result Performing Organization Address City/[facility] Co de Phone Number [facility] [place] [address] * (ABNORMAL) POCT glucose (11/23/2019 8:00 PM ORACLE APPLICATIONS DEVELOPER) Glucose, POC 423(H) 70 - 199 mg/dL [facility] Blood specimen (specimen) 11/23/2019 8:00 PM ORACLE APPLICATIONS DEVELOPER 11/23/2019 8:00 PM ORACLE APPLICATIONS DEVELOPER us Josué Del Valle MD PhD LAB POCT ORDERABLES - DE VICE Final Result Performing Organization Address [facility] Co pa Phone Number [facility] [place] [address] * (ABNORMAL) POCT glucose (11/23/2019 6:20 PM ORACLE APPLICATIONS DEVELOPER) Glucose, POC 473(C) 70 - 199 mg/dL [facility] Glucose comment 1 RN Notified [facility] Blood specimen (specimen) 11/23/2019 6:20 PM ORACLE APPLICATIONS DEVELOPER 11/23/2019 6:20 PM ORACLE APPLICATIONS DEVELOPER us Josué Del Valle MD PhD LAB POCT ORDERABLES - DE VICE Final Result Performing Organization Address [facility] Phone Number [facility] [place] [address] * TRANSTHORACIC ECHO (TTE) COMPLETE W DOPPLER/CF W CONTRAST (11/23/2019 4:01 PM ORACLE APPLICATIONS DEVELOPER) Anatomical Region Laterality Modality Ultrasound 11/23/2019 12:0 0 PM ORACLE APPLICATIONS DEVELOPER Narrative 11/23/2019 5:16 PM ORACLE APPLICATIONS DEVELOPER Patient name: Bri Jones Date of test: 11/23/2019 Type of test: TTE w/Doppler [facility] #: [id number] Date of : 1965 (M) Aluminum Siding Mechanic: Ekta Bullock RDCS Referring Physician: LIZZETTE GRIJALVA MD Contrast Agent: 2.3 ml Optison Administered, (0.7 ml wasted). Contrast Administered by: floor rn Supervised/Interpreted by: Hannah Chanel MD Diagnosis: Location: [facility] Reason for test: SOB, pulmonary edema suspected - room 79 MV Structure: Normal, ?MV Motion: Normal, ?? [...] 2=Hypo 3=Akinetic 4=Dyskin./Aneurysm 0=Not visualized) Parasternal Long Rousseau:MAS=1 BAS=1 MP=1 BP=1 Parasternal Short Rousseau:MAS=1 MS=1 OH=1 MP=1 ML=1 MA=1 Apical 4 Chambers:=1 MS=1 BS=1 BL=1 OH=1 AL=1 Apical 2 Chambers:AI=1 OH=1 BI=1 BA=1 MA=1 AA=1 LV Global Longitudinal Strain: RV Global Longitudinal Strain: LV Function: Normal LV Ejection Fraction, (EF=52-72%) RV Function: Normal Septal Motion: Normal Pericardial Effusion: trivial posterior Atrial Septum: Normal DOPPLER/COLOR FOLOW DOPPLER RESULTS: Diastolic Function: normal Tricuspid Valve: mild TV regurgitation Pulmonic Valve: Mild ND AV Regurgitation: No AR seen AV Stenosis: [...] , no MS, mild TV regurgitation, Mild ND. Diastolic function: normal CONTRAST: 2.3 ml Optison [...] - 17:16:13 by Hannah Chanel MD ?? Teacher Vocational Training: Arsen Smith MD By signing this report, the attending commercial real estate underwriter certifies that he or she has personally supervised and interpreted the echocardiogram and has reviewed and or edited and agrees with the written comments contained within the report. Procedure Note Hannah Chanel MD - 11/23/2019 Patient name: Bri Jones Date of test: 11/23/2019 Type of test: TTE w/Doppler [facility] #: [id number] Date of : 1965 (M) Aluminum Siding Mechanic: Ekta Bullock NIKKI Referring Physician: LIZZETTE GRIJALVA MD Contrast Agent: 2.3 ml Optison Administered, (0.7 ml wasted). Contrast Administered by: suellen rn Supervised/Interpreted by: Hannah Chanel MD Diagnosis: Location: [facility] Reason for test: SOB, pulmonary edema suspected - room 0802 MV Structure: Normal, MV Motion: Normal, Mitral [...] 2=Hypo 3=Akinetic 4=Dyskin./Aneurysm 0=Not visualized) Parasternal Long Rousseau:MAS=1 BAS=1 MP=1 BP=1 Parasternal Short Rousseau:MAS=1 MS=1 OH=1 MP=1 ML=1 MA=1 Apical 4 Chambers:=1 MS=1 BS=1 BL=1 OH=1 AL=1 Apical 2 Chambers:AI=1 OH=1 BI=1 BA=1 MA=1 AA=1 LV Global Longitudinal Strain: RV Global Longitudinal Strain: LV Function: Normal LV Ejection Fraction, (EF=52-72%) RV Function: Normal Septal Motion: Normal Pericardial Effusion: trivial posterior Atrial Septum: Normal DOPPLER/COLOR FOLOW DOPPLER RESULTS: Diastolic Function: normal Tricuspid Valve: mild TV regurgitation Pulmonic Valve: Mild ND AV Regurgitation: No AR seen AV Stenosis: [...] , no MS, mild TV regurgitation, Mild ND. Diastolic function: normal CONTRAST: 2.3 ml Optison [...] 11/23/2019 - 17:16:13 by Hannah Chanel MD Teacher Vocational Training: Arsen Smith MD By signing this report, the attending commercial real estate underwriter certifies that he or she has personally supervised and interpreted the echocardiogram and has reviewed and or edited and agrees with the written comments contained within the report. Lizzette Grijalva MD CV ECHO PROCEDURES Final Result * Potassium, whole blood (11/23/2019 2:54 PM ORACLE APPLICATIONS DEVELOPER) [facility] Potassium, bld 4.6 3.3 - 4.9 mmol/L [facility] Blood specimen (specimen) 11/23/2019 2:54 PM ORACLE APPLICATIONS DEVELOPER 11/23/2019 3:01 PM ORACLE APPLICATIONS DEVELOPER Iza Gordon AUTO EMISSIONS TECHNICIAN LAB BLOOD ORDERABLES Final Result Performing Organization Address [facility]/ZIP Co de Phone Number [facility] [place] [address] * POCT glucose (11/23/2019 2:43 PM ORACLE APPLICATIONS DEVELOPER) [facility] Glucose, POC 156 70 - 199 mg/dL [facility] Blood specimen (specimen) 11/23/2019 2:43 PM ORACLE APPLICATIONS DEVELOPER 11/23/2019 2:43 PM ORACLE APPLICATIONS DEVELOPER Josué Del Valle MD PhD LAB POCT ORDERABLES - DE VICE Final Result Performing Organization Address [facility]/ZIP Co de Phone Number [facility] [place] [address] * (ABNORMAL) POCT glucose (11/23/2019 1:46 PM ORACLE APPLICATIONS DEVELOPER) [facility] Signature Glucose, POC 222(H) 70 - 199 mg/dL [facility] Blood specimen (specimen) 11/23/2019 1:46 PM ORACLE APPLICATIONS DEVELOPER 11/23/2019 1:46 PM ORACLE APPLICATIONS DEVELOPER Josué Del Valle MD PhD LAB POCT ORDERABLES - DE VICE Final Result Performing Organization Address [facility] Co de Phone Number [facility] [place] [address] * (ABNORMAL) POCT glucose (11/23/2019 12:44 PM ORACLE APPLICATIONS DEVELOPER) Glucose, POC 296(H) 70 - 199 mg/dL [facility] Blood specimen (specimen) 11/23/2019 12:44 PM ORACLE APPLICATIONS DEVELOPER 11/23/2019 12:44 PM ORACLE APPLICATIONS DEVELOPER Josué Del Valle MD PhD LAB POCT ORDERABLES - DE VICE Final Result Performing Organization Address [facility] Co de Phone Number [facility] [place] [address] * (ABNORMAL) POCT glucose (11/23/2019 11:45 AM ORACLE APPLICATIONS DEVELOPER) Glucose, POC 407(H) 70 - 199 mg/dL [facility] Blood specimen (specimen) 11/23/2019 11:45 AM ORACLE APPLICATIONS DEVELOPER 11/23/2019 11:45 AM ORACLE APPLICATIONS DEVELOPER Josué Del Valle MD PhD LAB POCT ORDERABLES - DE VICE Final Result Performing Organization Address City/[facility] [place] [address] * (ABNORMAL) POCT glucose (11/23/2019 10:13 AM ORACLE APPLICATIONS DEVELOPER) Glucose, POC 419(H) 70 - 199 mg/dL [facility] Blood specimen (specimen) 11/23/2019 10:13 AM ORACLE APPLICATIONS DEVELOPER 11/23/2019 10:13 AM ORACLE APPLICATIONS DEVELOPER us Josué Del Valle MD PhD LAB POCT ORDERABLES - DE VICE Final Result Performing Organization Address [facility] Co de Phone Number [facility] [place] [address] * (ABNORMAL) POCT glucose (11/23/2019 8:23 AM ORACLE APPLICATIONS DEVELOPER) Glucose, POC 449(H) 70 - 199 mg/dL [facility] Blood specimen (specimen) 11/23/2019 8:23 AM ORACLE APPLICATIONS DEVELOPER 11/23/2019 8:23 AM ORACLE APPLICATIONS DEVELOPER us Josué Del Valle MD PhD LAB POCT ORDERABLES - DE VICE Final Result Performing Organization Address [facility] Co pa Phone Number [facility] [place] [address] * (ABNORMAL) POCT glucose (11/23/2019 4:41 AM ORACLE APPLICATIONS DEVELOPER) Glucose, POC 372(H) 70 - 199 mg/dL [facility] Blood specimen (specimen) 11/23/2019 4:41 AM ORACLE APPLICATIONS DEVELOPER 11/23/2019 4:41 AM ORACLE APPLICATIONS DEVELOPER Josué Del Valle MD PhD LAB POCT ORDERABLES - DE VICE Final Result Performing Organization Address [facility] [place] [address] * Phosphorus (11/23/2019 3:07 AM ORACLE APPLICATIONS DEVELOPER) Phosphorus, pl 2.9 2.3 - 4.5 mg/dL [facility] Comment:Hemolyzed result may be falsely elevated Blood specimen (specimen) 11/23/2019 3:07 AM ORACLE APPLICATIONS DEVELOPER 11/23/2019 4:26 AM ORACLE APPLICATIONS DEVELOPER Josué Del Valle MD PhD LAB BLOOD ORDERABLES Fin al Result [facility] Department [place] [address] * Magnesium (11/23/2019 3:07 AM ORACLE APPLICATIONS DEVELOPER) [facility] Magnesium 1.8 1.4 - 2.5 mg/dL [facility] Blood specimen (specimen) 11/23/2019 3:07 AM ORACLE APPLICATIONS DEVELOPER 11/23/2019 4:26 AM ORACLE APPLICATIONS DEVELOPER Josué Del Valle MD PhD LAB BLOOD ORDERABLES Fin al Result Performing Organization Address [facility] de Phone Number [facility] Department [place] [address] * (ABNORMAL) Manual Differential (11/23/2019 3:07 AM ORACLE APPLICATIONS DEVELOPER) [facility] Differential Manual [facility] Cells Counted 113 [facility] Neutrophil abs 17.5(H) 1.7 - 6.5 K/cumm [facility] Imm gran abs 0.4(H) 0.0 - 0.1 K/cumm [facility] Lymphocyte abs 1.6 0.8 - 3.3 K/cumm [facility] Monocyte abs 1.1(H) 0.2 - 0.8 K/cumm [facility] Neutrophil pct 84.9 % [facility] Comment: Interpretive Data Percent cell count reference ranges are not reported, since discordance with absolute values may lead to misinterpretation of CBC data. Current Interpretive Data was last revised on 2018. Lymphocyte pct 8.0 % [facility] Comment: Interpretive Data Percent cell count reference ranges are not reported, since discordance with absolute values may lead to misinterpretation of CBC data. Current Interpretive Data was last revised on 2018. Monocyte pct 5.3 % [facility] Comment: Interpretive Data Percent cell count reference ranges are not reported, since discordance with absolute values may lead to misinterpretation of CBC data. Current Interpretive Data was last revised on 2018. Metamyelocyte pct 0.9(H) 0.0 - 0.0 % [facility] Myelocyte pct 0.9 % [facility] RBC morphology Normal [facility] Platelet estimate Adequate [facility] Blood specimen (specimen) 11/23/2019 3:07 AM ORACLE APPLICATIONS DEVELOPER 11/23/2019 3:23 AM ORACLE APPLICATIONS DEVELOPER Iza Gordon NP LAB BLOOD ORDERABLES Edited Result - Final [facility] [place] [address] * (ABNORMAL) CBC without differential (11/23/2019 3:07 AM ORACLE APPLICATIONS DEVELOPER) WBC 20.6(H) 3.8 - 9.9 K/cumm [facility] Hgb 12.1(L) 13.0 - 17.5 g/dL [facility] Hct 36.1(L) 38.9 - 50.3 % [facility] Plt 265 150 - 400 K/cumm [facility] MPV 11.4 9.1 - 12.3 fL [facility] RBC 3.62(L) 4.30 - 5.80 M/cumm [facility] MCV 99.7(H) 81.3 - 96.4 fL [facility] MCH 33.4(H) 27.1 - 33.3 pg [facility] MCHC 33.5 32.3 - 35.7 g/dL [facility] RDW CV 13.7 11.1 - 14.9 % [facility] RDW SD 50.7(H) 35.7 - 48.1 fL [facility] NRBC abs 0.61(H) 0.00 - 0.01 K/cumm [facility] Blood specimen (specimen) 11/23/2019 3:07 AM ORACLE APPLICATIONS DEVELOPER 11/23/2019 3:23 AM ORACLE APPLICATIONS DEVELOPER Iza Gordon NP LAB BLOOD ORDERABLES Final Result Performing Organization Address City/[facility] de Phone Number [facility] [place] [address] * (ABNORMAL) Protime-INR (11/23/2019 3:07 AM ORACLE APPLICATIONS DEVELOPER) PT 17.4(H) 8.6 - 13.0 sec [facility] INR 1.6(H) 0.8 - 1.2 [facility] Comment: Interpretive data Oral anticoagulant therapeutic ranges: Venous thromboembolism prophylaxis or treatment: 2.0-3.0 CARDIOLOGY Standard range: 2.0-3.0 High-intensity range: 2.5-3.5 Refer to indication-specific guidelines for appropriate target ranges for prosthetic heart valve replacement. Current interpretive data was last revised on 2019. Blood specimen (specimen) 11/23/2019 3:07 AM ORACLE APPLICATIONS DEVELOPER 11/23/2019 3:17 AM ORACLE APPLICATIONS DEVELOPER Iza Gordon NP LAB BLOOD ORDERABLES Final Result Performing Organization Address [place] [address] * aPTT (11/23/2019 3:07 AM ORACLE APPLICATIONS DEVELOPER) aPTT 29 25 - 37 sec [facility] Comment: Interpretive data Heparin therapeutic range: 60-90 seconds Range based on correlation with therapeutic heparin activity range of 0.3-0.7 units/ml. Current interpretive data was last revised on 2019. Blood specimen (specimen) 11/23/2019 3:07 AM ORACLE APPLICATIONS DEVELOPER 11/23/2019 3:17 AM ORACLE APPLICATIONS DEVELOPER Iza Gordon NP LAB BLOOD ORDERABLES Final Result Performing Organization Address [facility] de Phone Number [facility] [place] [address] * Lactate dehydrogenase (LD) (11/23/2019 3:07 AM ORACLE APPLICATIONS DEVELOPER) [facility] Lactate dehydrogenase (LDH) See Comment 100 - 250 Units/L [facility] Comment:Credited Hemolyzed Blood specimen (specimen) 11/23/2019 3:07 AM ORACLE APPLICATIONS DEVELOPER 11/23/2019 4:26 AM ORACLE APPLICATIONS DEVELOPER Narrative [facility] - 11/23/2019 5:10 AM ORACLE APPLICATIONS DEVELOPER Saturday and only. Morning draw. Iza Adriana Gordon NP LAB BLOOD ORDERABLES Final Result Performing Organization Address [facility] de Phone Number [facility] [place] [address] * Uric acid (11/23/2019 3:07 AM ORACLE APPLICATIONS DEVELOPER) [facility] Uric acid 4.6 3.0 - 8.0 mg/dL [facility] Blood specimen (specimen) 11/23/2019 3:07 AM ORACLE APPLICATIONS DEVELOPER 11/23/2019 4:26 AM ORACLE APPLICATIONS DEVELOPER Narrative [facility] - 11/23/2019 5:03 AM ORACLE APPLICATIONS DEVELOPER Saturday and only. Morning draw. . Iza Adriana Gordon LAB BLOOD ORDERABLES Final Result Performing Organization Address [facility] de Phone Number [facility] [place] [address] * (ABNORMAL) Comprehensive metabolic panel (11/23/2019 3:07 AM ORACLE APPLICATIONS DEVELOPER) [facility] Sodium 131(L) 135 - 145 mmol/L [facility] Potassium, pl See Comment 3.3 - 4.9 mmol/L [facility] Comment:Credited Hemolyzed Chloride 92(L) 97 - 110 mmol/L [facility] CO2 29 22 - 32 mmol/L [facility] Anion gap 10 2 - 15 mmol/L [facility] BUN 29(H) 8 - 25 mg/dL [facility] Creatinine 0.78(L) 0.80 - 1.30 mg/dL [facility] Glucose 379(H) 70 - 199 mg/dL [facility] Comment: Interpretive Data Fasting glucose [...] 2017. Calcium 8.7 8.5 - 10.3 mg/dL [facility] Bilirubin, total 0.2 0.1 - 1.2 mg/dL [facility] Protein, pl 6.5 6.5 - 8.5 g/dL [facility] Albumin 3.2(L) 3.5 - 5.0 g/dL [facility] Alk phos 100 40 - 130 Units/L [facility] Comment:Hemolyzed result may be falsely decreased ALT See Comment 7 - 55 Units/L [facility] Comment:Credited; Hemolyzed Specimen AST See Comment 10 - 50 Units/L [facility] Comment:Credited Hemolyzed Blood specimen (specimen) 11/23/2019 3:07 AM ORACLE APPLICATIONS DEVELOPER 11/23/2019 4:26 AM ORACLE APPLICATIONS DEVELOPER Narrative [facility] - 11/23/2019 5:10 AM ORACLE APPLICATIONS DEVELOPER Saturday and only. Morning draw. Iza Gordon NP LAB BLOOD ORDERABLES Final Result [facility] Department of Laboratories [place], [place] [id number] * Type and screen (11/23/2019 3:07 AM ORACLE APPLICATIONS DEVELOPER) ABO Rh A Positive [facility] Ursula, indirect Negative [facility] Blood specimen (specimen) 11/23/2019 3:07 AM ORACLE APPLICATIONS DEVELOPER 11/23/2019 3:21 AM ORACLE APPLICATIONS DEVELOPER Narrative [facility] - 11/23/2019 4:18 AM ORACLE APPLICATIONS DEVELOPER Has the patient had Daratumumab (Darzalex) in the past 6 months?->Unknown us Iza Gordon AUTO EMISSIONS TECHNICIAN LAB BLOOD BANK TEST ORDERABLES Final Result Performing Organization Address [facility] Co de Phone Number [facility] [place] [address] * (ABNORMAL) POCT glucose (11/23/2019 2:56 AM ORACLE APPLICATIONS DEVELOPER) Glucose, POC 404(H) 70 - 199 mg/dL [facility] Blood specimen (specimen) 11/23/2019 2:56 AM ORACLE APPLICATIONS DEVELOPER 11/23/2019 2:56 AM ORACLE APPLICATIONS DEVELOPER Josué Del Valle MD PhD LAB POCT ORDERABLES - DE VICE Final Result Performing Organization Address City/[facility] Co de Phone Number [facility] [place] [address] * (ABNORMAL) POCT glucose (11/23/2019 1:06 AM ORACLE APPLICATIONS DEVELOPER) Glucose, POC 443(H) 70 - 199 mg/dL [facility] Blood specimen (specimen) 11/23/2019 1:06 AM ORACLE APPLICATIONS DEVELOPER 11/23/2019 1:06 AM ORACLE APPLICATIONS DEVELOPER Josué Del Valle MD PhD LAB POCT ORDERABLES - DE VICE Final Result Performing Organization Address City/[facility] [place] [address] * (ABNORMAL) POCT glucose (11/22/2019 10:10 PM ORACLE APPLICATIONS DEVELOPER) Glucose, POC 418(H) 70 - 199 mg/dL [facility] Blood specimen (specimen) 11/22/2019 10:10 PM ORACLE APPLICATIONS DEVELOPER 11/22/2019 10:10 PM ORACLE APPLICATIONS DEVELOPER us Josué Del Valle MD PhD LAB POCT ORDERABLES - DE VICE Final Result Performing Organization Address [facility] Co de Phone Number [facility] [place] [address] * (ABNORMAL) POCT glucose (11/22/2019 5:34 PM ORACLE APPLICATIONS DEVELOPER) Glucose, POC 377(H) 70 - 199 mg/dL [facility] Blood specimen (specimen) 11/22/2019 5:34 PM ORACLE APPLICATIONS DEVELOPER 11/22/2019 5:34 PM ORACLE APPLICATIONS DEVELOPER us Josué Del Valle MD PhD LAB POCT ORDERABLES - DE VICE Final Result Performing Organization Address [facility] Co de Phone Number [facility] [place] [address] * (ABNORMAL) POCT glucose (11/22/2019 12:03 PM ORACLE APPLICATIONS DEVELOPER) Glucose, POC 409(H) 70 - 199 mg/dL [facility] Blood specimen (specimen) 11/22/2019 12:03 PM ORACLE APPLICATIONS DEVELOPER 11/22/2019 12:03 PM ORACLE APPLICATIONS DEVELOPER us Josué Del Valle MD PhD LAB POCT ORDERABLES - DE VICE Final Result Performing Organization Address [facility] [place] [address] * Critical Result Callback Chemistry (11/22/2019 9:24 AM ORACLE APPLICATIONS DEVELOPER) Date Notified [id number] [facility] Time Notified [address] [place] [address] TestName vancomycin,t r [facility] Called/Read Back marleny rojas [facility] Credentials RN [facility] Called By [facility] Blood specimen (specimen) 11/22/2019 9:24 AM ORACLE APPLICATIONS DEVELOPER 11/22/2019 9:49 AM ORACLE APPLICATIONS DEVELOPER Anjel Muniz MD LAB BLOOD ORDERABLES Fin al Result Performing Organization Address [facility] Co de Phone Number [facility] [place] [address] * (ABNORMAL) Vancomycin, trough Draw trough 30 minutes prior to 4th dose. (11/22/2019 9:24 AM ORACLE APPLICATIONS DEVELOPER) Vancomycin trough 21.3(C) 10.0 - 20.9 mcg/mL [facility] Blood specimen (specimen) 11/22/2019 9:24 AM ORACLE APPLICATIONS DEVELOPER 11/22/2019 9:49 AM ORACLE APPLICATIONS DEVELOPER Narrative [facility] - 11/22/2019 10:19 AM ORACLE APPLICATIONS DEVELOPER Draw trough 30 minutes prior to 4th dose. Anjel Muniz MD LAB BLOOD ORDERABLES Fin al Result Performing Organization Address [facility] Co de Phone Number [facility] [place] [address] * (ABNORMAL) POCT glucose (11/22/2019 7:50 AM ORACLE APPLICATIONS DEVELOPER) Glucose, POC 270(H) 70 - 199 mg/dL [facility] Blood specimen (specimen) 11/22/2019 7:50 AM ORACLE APPLICATIONS DEVELOPER 11/22/2019 7:50 AM ORACLE APPLICATIONS DEVELOPER Josué Del Valle MD PhD LAB POCT ORDERABLES - DE VICE Final Result Performing Organization Address [facility] [place] [address] * (ABNORMAL) POCT glucose (11/22/2019 6:53 AM ORACLE APPLICATIONS DEVELOPER) Glucose, POC 432(H) 70 - 199 mg/dL [facility] Blood specimen (specimen) 11/22/2019 6:53 AM ORACLE APPLICATIONS DEVELOPER 11/22/2019 6:53 AM ORACLE APPLICATIONS DEVELOPER us Josué Del Valle MD PhD LAB POCT ORDERABLES - DE VICE Final Result [facility] [place] [address] * (ABNORMAL) Manual Differential (11/22/2019 5:45 AM ORACLE APPLICATIONS DEVELOPER) Differential Manual [facility] Cells Counted 115 [facility] Neutrophil abs 11.9(H) 1.7 - 6.5 K/cumm [facility] Imm gran abs 0.2(H) 0.0 - 0.1 K/cumm [facility] Lymphocyte abs 1.2 0.8 - 3.3 K/cumm [facility] Monocyte abs 0.1(L) 0.2 - 0.8 K/cumm [facility] Basophil abs 0.1 0.0 - 0.1 K/cumm [facility] Neutrophil pct 87.7 % [facility] Comment: Interpretive Data Percent cell count reference ranges are not reported, since discordance with absolute values may lead to misinterpretation of CBC data. Current Interpretive Data was last revised on 2018. Lymphocyte pct 7.8 % [facility] Comment: Interpretive Data Percent cell count reference ranges are not reported, since discordance with absolute values may lead to misinterpretation of CBC data. Current Interpretive Data was last revised on 2018. Monocyte pct 0.9 % [facility] Comment: Interpretive Data Percent cell count reference ranges are not reported, since discordance with absolute values may lead to misinterpretation of CBC data. Current Interpretive Data was last revised on 2018. Basophil pct 0.9 % [facility] Comment: Interpretive Data Percent cell count reference ranges are not reported, since discordance with absolute values may lead to misinterpretation of CBC data. Current Interpretive Data was last revised on 2018. Myelocyte pct 0.9 % [facility] Promyelocyte pct 0.9(H) 0.0 - 0.0 % [facility] Variant lymph pct 0.9(H) 0.0 - 0.0 % [facility] RBC morphology Normal [facility] Platelet estimate Adequate [facility] Blood specimen (specimen) 11/22/2019 5:45 AM ORACLE APPLICATIONS DEVELOPER 11/22/2019 5:57 AM ORACLE APPLICATIONS DEVELOPER Iza Gordon AUTO EMISSIONS TECHNICIAN LAB BLOOD ORDERABLES Edited Result - Final Performing Organization Address City/[facility]/ZIP Co de Phone Number [facility] [place] [address] * (ABNORMAL) CBC without differential (11/22/2019 5:45 AM ORACLE APPLICATIONS DEVELOPER) WBC 13.6(H) 3.8 - 9.9 K/cumm [facility] Hgb 13.4 13.0 - 17.5 g/dL [facility] Hct 40.1 38.9 - 50.3 % [facility] Plt 286 150 - 400 K/cumm [facility] MPV 11.5 9.1 - 12.3 fL [facility] RBC 4.00(L) 4.30 - 5.80 M/cumm [facility] MCV 100.3(H) 81.3 - 96.4 fL [facility] MCH 33.5(H) 27.1 - 33.3 pg [facility] MCHC 33.4 32.3 - 35.7 g/dL [facility] RDW CV 13.5 11.1 - 14.9 % [facility] RDW SD 49.5(H) 35.7 - 48.1 fL [facility] NRBC abs 0.64(H) 0.00 - 0.01 K/cumm [facility] Blood specimen (specimen) 11/22/2019 5:45 AM ORACLE APPLICATIONS DEVELOPER 11/22/2019 5:57 AM ORACLE APPLICATIONS DEVELOPER Iza Gordon NP LAB BLOOD ORDERABLES Final Result Performing Organization Address City/[facility]/ZIP Co de Phone Number [facility] Department [place] [address] * (ABNORMAL) Basic metabolic panel (11/22/2019 5:45 AM ORACLE APPLICATIONS DEVELOPER) Sodium 131(L) 135 - 145 mmol/L [facility] Potassium, pl 5.5(H) 3.3 - 4.9 mmol/L [facility] Chloride 94(L) 97 - 110 mmol/L [facility] CO2 29 22 - 32 mmol/L [facility] Anion gap 8 2 - 15 mmol/L [facility] BUN 25 8 - 25 mg/dL [facility] Creatinine 0.83 0.80 - 1.30 mg/dL [facility] Glucose 417(H) 70 - 199 mg/dL [facility] Comment: Interpretive Data Fasting glucose [...] 2017. Calcium 9.2 8.5 - 10.3 mg/dL [facility] Blood specimen (specimen) 11/22/2019 5:45 AM ORACLE APPLICATIONS DEVELOPER 11/22/2019 5:57 AM ORACLE APPLICATIONS DEVELOPER Narrative [facility] - 11/22/2019 6:26 AM ORACLE APPLICATIONS DEVELOPER Daily except Saturday and . Morning draw. Iza Gordon NP LAB BLOOD ORDERABLES Final Result [facility] [place] [address] * Phosphorus (11/22/2019 5:45 AM ORACLE APPLICATIONS DEVELOPER) Phosphorus, pl 3.7 2.3 - 4.5 mg/dL [facility] Blood specimen (specimen) 11/22/2019 5:45 AM ORACLE APPLICATIONS DEVELOPER 11/22/2019 5:57 AM ORACLE APPLICATIONS DEVELOPER Iza Adriana Gordon AUTO EMISSIONS TECHNICIAN LAB BLOOD ORDERABLES Final Result Performing Organization Address [facility] Co de Phone Number [facility] [place] [address] * Magnesium (11/22/2019 5:45 AM ORACLE APPLICATIONS DEVELOPER) Magnesium 1.8 1.4 - 2.5 mg/dL [facility] Blood specimen (specimen) 11/22/2019 5:45 AM ORACLE APPLICATIONS DEVELOPER 11/22/2019 5:57 AM ORACLE APPLICATIONS DEVELOPER [facility] Adriana Gordon NP LAB BLOOD ORDERABLES Final Result Performing Organization Address [facility] de Phone Number [facility] [place] [address] * (ABNORMAL) POCT glucose (11/22/2019 5:06 AM ORACLE APPLICATIONS DEVELOPER) Glucose, POC 328(H) 70 - 199 mg/dL [facility] Blood specimen (specimen) 11/22/2019 5:06 AM ORACLE APPLICATIONS DEVELOPER 11/22/2019 5:06 AM ORACLE APPLICATIONS DEVELOPER Josué Del Valle MD PhD LAB POCT ORDERABLES - DE VICE Final Result Performing Organization Address [facility] [place] [address] * (ABNORMAL) POCT glucose (11/22/2019 12:27 AM ORACLE APPLICATIONS DEVELOPER) Glucose, POC 344(H) 70 - 199 mg/dL [facility] Blood specimen (specimen) 11/22/2019 12:27 AM ORACLE APPLICATIONS DEVELOPER 11/22/2019 12:27 AM ORACLE APPLICATIONS DEVELOPER Josué Del Valle MD PhD LAB POCT ORDERABLES - DE VICE Final Result Performing Organization Address City/[facility] Co de Phone Number [facility] [place] [address] * (ABNORMAL) POCT glucose (11/21/2019 9:47 PM ORACLE APPLICATIONS DEVELOPER) Pathologist [facility] Glucose, POC 523(C) 70 - 199 mg/dL [facility] Glucose comment 1 RN Notified [facility] Glucose comment 2 Doctor Notified [facility] Blood specimen (specimen) 11/21/2019 9:47 PM ORACLE APPLICATIONS DEVELOPER 11/21/2019 9:47 PM ORACLE APPLICATIONS DEVELOPER Josué Del Valle MD PhD LAB POCT ORDERABLES - DE VICE Final Result Performing Organization Address [facility] de Phone Number [facility] [place] [address] * Histoplasma Antigen Urine (11/21/2019 5:39 PM ORACLE APPLICATIONS DEVELOPER) [facility] Histo Ag Ur result None Detected None Detected [facility] Histo Ag Ur interp Negative Negative [facility] Comment: Result Interpretation: Reference interval: None Detected Results reported as ng/mL in 0.4 - 19 ng/mL range Results above the limit of detection but below 0.4 ng/mL are reported as 'Positive, Below the Limit of Quantification' Results above 19 ng/mL are reported as 'Positive, Above the Limit of Quantification' Testing Performed by: [facility], [address] [place] [address] [place] [address]. This test was developed and its performance characteristics determined by [facility]. It has not been cleared or approved by the FDA; however, FDA clearance or approval is not currently required for clinical use. The results are not intended to be used as the sole means for clinical diagnosis or patient management decisions. Urine 11/21/2019 5:39 PM ORACLE APPLICATIONS DEVELOPER 11/21/2019 7:20 PM ORACLE APPLICATIONS DEVELOPER us Lizzette Grijalva MD LAB MICROBIOLOGY - GENERA L ORDERABLES Final Result Performing Organization Address [facility] [place] [address] * (ABNORMAL) POCT glucose (11/21/2019 5:14 PM ORACLE APPLICATIONS DEVELOPER) Glucose, POC 461(C) 70 - 199 mg/dL [facility] Glucose comment 1 RN Notified [facility] Blood specimen (specimen) 11/21/2019 5:14 PM ORACLE APPLICATIONS DEVELOPER 11/21/2019 5:14 PM ORACLE APPLICATIONS DEVELOPER us Josué Del Valle MD PhD LAB POCT ORDERABLES - DE VICE Final Result Performing Organization Address [facility] [place] [address] * (ABNORMAL) POCT glucose (11/21/2019 12:36 PM ORACLE APPLICATIONS DEVELOPER) Glucose, POC 481(C) 70 - 199 mg/dL [facility] Glucose comment 1 RN Notified [facility] Blood specimen (specimen) 11/21/2019 12:36 PM ORACLE APPLICATIONS DEVELOPER 11/21/2019 12:36 PM ORACLE APPLICATIONS DEVELOPER us Josué Del Valle MD PhD LAB POCT ORDERABLES - DE VICE Final Result Performing Organization Address City/[facility] Co de Phone Number [facility] [place] [address] * (ABNORMAL) POCT glucose (11/21/2019 8:28 AM ORACLE APPLICATIONS DEVELOPER) Glucose, POC 367(H) 70 - 199 mg/dL [facility] Blood specimen (specimen) 11/21/2019 8:28 AM ORACLE APPLICATIONS DEVELOPER 11/21/2019 8:28 AM ORACLE APPLICATIONS DEVELOPER us Josué Del Valle MD PhD LAB POCT ORDERABLES - DE VICE Final Result Performing Organization Address [facility] [place] [address] * (ABNORMAL) POCT glucose (11/21/2019 6:27 AM ORACLE APPLICATIONS DEVELOPER) Glucose, POC 386(H) 70 - 199 mg/dL [facility] Blood specimen (specimen) 11/21/2019 6:27 AM ORACLE APPLICATIONS DEVELOPER 11/21/2019 6:27 AM ORACLE APPLICATIONS DEVELOPER us Josué Del Valle MD PhD LAB POCT ORDERABLES - DE VICE Final Result Performing Organization Address [facility] [place] [address] * (ABNORMAL) POCT glucose (11/21/2019 5:06 AM ORACLE APPLICATIONS DEVELOPER) [facility] Glucose, POC 491(C) 70 - 199 mg/dL [facility] Glucose comment 1 Glu2: [facility] Blood specimen (specimen) 11/21/2019 5:06 AM ORACLE APPLICATIONS DEVELOPER 11/21/2019 5:06 AM ORACLE APPLICATIONS DEVELOPER us Josué Del Valle MD PhD LAB POCT ORDERABLES - DE VICE Final Result Performing Organization Address [facility] Phone Number [facility] [place] [address] * (ABNORMAL) Aerobic culture and gram stain Sputum Lung (11/21/2019 3:45 AM ORACLE APPLICATIONS DEVELOPER) [facility] Direct Specimen Exam Stain: Abundant polymorphonuclear leukocytes seen. No squamous epithelial cells seen. Abundant Mixed bacterial oscar seen on gram stain. [facility] Report Final Report: Greater than or equal to 100,000 colonies/ml of Streptococcus pneumoniae Moxifloxacin susceptibility results can be inferred from gatifloxacin susceptibility testing. Plus growth of clinically insignificant bacterial oscar. (.) [facility] Organism STREPTOCOCCUS PNEUMONIAE [facility] Organism PLUS GROWTH OF CLINICALLY INSIGNIFICANT OSCAR. [facility] Sputum (Lung) 11/21/2019 3:4 5 AM ORACLE APPLICATIONS DEVELOPER 11/21/2019 3:56 AM ORACLE APPLICATIONS DEVELOPER Narrative [facility] - 11/24/2019 1:16 PM ORACLE APPLICATIONS DEVELOPER Testing performed by [facility] ([phone]) Specimens submitted from normally sterile body sites [...] oral (REYNOLD) INTERPRETATION Intermediate Streptococcus pneumoniae Azithromycin (REYONLD) INTERPRETATION Susceptible Streptococcus pneumoniae Tetracycline (REYNOLD) INTERPRETATION Susceptible Streptococcus pneumoniae Trimethoprim with Sulfamethoxazole (REYNOLD) INTERPRETATION 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 (REYNOLD) INTERPRETATION Susceptible Streptococcus pneumoniae Ceftriaxone (REYNOLD) - non-meningitis (REYNOLD) INTERPRETATION Susceptible Streptococcus pneumoniae Vancomycin (REYNOLD) INTERPRETATION Susceptible us Fer Tesfaye MD LAB MICROBIOLOGY - GENERAL ORDERABLES Final Result [facility] Department [place] [address] * Critical Result Callback Chemistry (11/21/2019 3:40 AM ORACLE APPLICATIONS DEVELOPER) Date Notified [id number] [facility] Time Notified 455 [facility] TestName glucose [facility] Called/Read Back bela DENT Credentials RN [facility] Called By cs [facility] Blood specimen (specimen) 11/21/2019 3:40 AM ORACLE APPLICATIONS DEVELOPER 11/21/2019 3:53 AM ORACLE APPLICATIONS DEVELOPER Iza Gordon NP LAB BLOOD ORDERABLES Final Result [facility] [place] [address] * (ABNORMAL) Manual Differential (11/21/2019 3:40 AM ORACLE APPLICATIONS DEVELOPER) Differential Manual [facility] Cells Counted 114 [facility] Neutrophil abs 12.7(H) 1.7 - 6.5 K/cumm [facility] Imm gran abs 0.5(H) 0.0 - 0.1 K/cumm [facility] Lymphocyte abs 0.9 0.8 - 3.3 K/cumm [facility] Monocyte abs 0.1(L) 0.2 - 0.8 K/cumm [facility] Neutrophil pct 89.5 % [facility] Comment: Interpretive Data Percent cell count reference ranges are not reported, since discordance with absolute values may lead to misinterpretation of CBC data. Current Interpretive Data was last revised on 2018. Lymphocyte pct 6.1 % [facility] Comment: Interpretive Data Percent cell count reference ranges are not reported, since discordance with absolute values may lead to misinterpretation of CBC data. Current Interpretive Data was last revised on 2018. Monocyte pct 0.9 % [facility] Comment: Interpretive Data Percent cell count reference ranges are not reported, since discordance with absolute values may lead to misinterpretation of CBC data. Current Interpretive Data was last revised on 2018. Myelocyte pct 2.6 % [facility] Promyelocyte pct 0.9(H) 0.0 - 0.0 % [facility] RBC morphology Present(A) [facility] Polychromasia 3-7/HPF(A) [facility] Anisocytosis Slight(A) [facility] Poikilocytosis Moderate(A) [facility] Macrocytes 3-7/HPF(A) [facility] Schistocytes 1-2/HPF(A) [facility] Echinocytes 8-15/HPF(A) [facility] Platelet estimate Adequate [facility] Blood specimen (specimen) 11/21/2019 3:40 AM ORACLE APPLICATIONS DEVELOPER 11/21/2019 3:53 AM ORACLE APPLICATIONS DEVELOPER Iza Gordon NP LAB BLOOD ORDERABLES Edited Result - [facility] [place] [address] * (ABNORMAL) CBC without differential (11/21/2019 3:40 AM ORACLE APPLICATIONS DEVELOPER) Pathologist [facility] [place] WBC 14.1(H) 3.8 - 9.9 K/cumm [facility] Hgb 14.0 13.0 - 17.5 g/dL [facility] Hct 42.6 38.9 - 50.3 % [facility] Plt 296 150 - 400 K/cumm [facility] MPV 11.7 9.1 - 12.3 fL [facility] RBC 4.22(L) 4.30 - 5.80 M/cumm [facility] MCV 100.9(H) 81.3 - 96.4 fL [facility] MCH 33.2 27.1 - 33.3 pg [facility] MCHC 32.9 32.3 - 35.7 g/dL [facility] RDW CV 13.6 11.1 - 14.9 % [facility] RDW SD 50.3(H) 35.7 - 48.1 fL [facility] NRBC abs 0.78(H) 0.00 - 0.01 K/cumm [facility] Blood specimen (specimen) 11/21/2019 3:40 AM ORACLE APPLICATIONS DEVELOPER 11/21/2019 3:53 AM ORACLE APPLICATIONS DEVELOPER Iza Gordon NP LAB BLOOD ORDERABLES Final Result [facility] Department [place] [address] * (ABNORMAL) Basic metabolic panel (11/21/2019 3:40 AM ORACLE APPLICATIONS DEVELOPER) Sodium 132(L) 135 - 145 mmol/L [facility] Potassium, pl 5.3(H) 3.3 - 4.9 mmol/L [facility] Chloride 92(L) 97 - 110 mmol/L [facility] CO2 26 22 - 32 mmol/L [facility] Anion gap 14 2 - 15 mmol/L [facility] BUN 22 8 - 25 mg/dL [facility] Creatinine 0.79(L) 0.80 - 1.30 mg/dL [facility] Glucose 529(C) 70 - 199 mg/dL [facility] Comment: Interpretive Data Fasting glucose [...] 2017. Calcium 9.2 8.5 - 10.3 mg/dL [facility] Blood specimen (specimen) 11/21/2019 3:40 AM ORACLE APPLICATIONS DEVELOPER 11/21/2019 3:53 AM ORACLE APPLICATIONS DEVELOPER Narrative [facility] - 11/21/2019 4:46 AM ORACLE APPLICATIONS DEVELOPER Daily except Saturday and . Morning draw. Iza Gordon NP LAB BLOOD ORDERABLES Final Result [facility] Department [place] [address] * (ABNORMAL) Phosphorus (11/21/2019 3:40 AM ORACLE APPLICATIONS DEVELOPER) Phosphorus, pl 4.6(H) 2.3 - 4.5 mg/dL [facility] Blood specimen (specimen) 11/21/2019 3:40 AM ORACLE APPLICATIONS DEVELOPER 11/21/2019 3:53 AM ORACLE APPLICATIONS DEVELOPER Iza Adriana Cincoski AUTO EMISSIONS TECHNICIAN LAB BLOOD ORDERABLES Final Result Performing Organization Address City/[facility] Co de Phone Number [facility] Department [place] [address] * Magnesium (11/21/2019 3:40 AM ORACLE APPLICATIONS DEVELOPER) Pathologist [facility] [place] Magnesium 1.8 1.4 - 2.5 mg/dL [facility] Blood specimen (specimen) 11/21/2019 3:40 AM ORACLE APPLICATIONS DEVELOPER 11/21/2019 3:53 AM ORACLE APPLICATIONS DEVELOPER us Iza Gordon AUTO EMISSIONS TECHNICIAN LAB BLOOD ORDERABLES Final Result Performing Organization Address [facility] Co de Phone Number [facility] Department [place] [address] * (ABNORMAL) POCT glucose (11/20/2019 8:05 PM ORACLE APPLICATIONS DEVELOPER) [facility] Glucose, POC 247(H) 70 - 199 mg/dL [facility] Blood specimen (specimen) 11/20/2019 8:05 PM ORACLE APPLICATIONS DEVELOPER 11/20/2019 8:05 PM ORACLE APPLICATIONS DEVELOPER us Josué Del Valle MD PhD LAB POCT ORDERABLES - DE VICE Final Result Performing Organization Address [facility] Co de Phone Number [facility] Department [place] [address] * Filamentous fungus culture, blood Blood (11/20/2019 6:46 PM ORACLE APPLICATIONS DEVELOPER) [facility] Report Final Report: No growth of fungus [facility] Blood specimen (specimen) 11/20/2019 6:46 PM ORACLE APPLICATIONS DEVELOPER 11/20/2019 6:56 PM ORACLE APPLICATIONS DEVELOPER Narrative [facility] - 12/18/2019 9:11 AM ORACLE APPLICATIONS DEVELOPER Testing performed by [facility] ([phone]). us Fer Tesfaye MD LAB MICROBIOLOGY - GENERAL ORDERABLES Final Result Performing Organization Address City/[facility]/[place] [address] * Aspergillus galactomannan antigen Blood (11/20/2019 6:46 PM ORACLE APPLICATIONS DEVELOPER) Report Final Report: Negative for Aspergillus Galactomannan Antigen Index: <0.500 [facility] Organism NEGATIVE FOR ASPERGILLUS GALACTOMANNAN ANTIGEN [facility] Blood specimen (specimen) 11/20/2019 6:46 PM ORACLE APPLICATIONS DEVELOPER 11/20/2019 6:56 PM ORACLE APPLICATIONS DEVELOPER Narrative [facility] - 11/24/2019 4:53 PM ORACLE APPLICATIONS DEVELOPER Interpretive Data Testing performed by: [facility], [address] [place] [address]. This is a qualitative test and the resulted index value is not indicative of disease severity. Serial testing is recommended for patients at high risk for invasive aspergillosis. This assay was performed using the FDA-cleared IP [employer] Platelia Aspergillus Galactomannan EIA. Current interpretive data was last revised on 18. us Fer Tesfaye MD LAB MICROBIOLOGY - GENERAL ORDERABLES Final Result Performing Organization Address [facility] [place] [address] * (ABNORMAL) POCT glucose (11/20/2019 5:15 PM ORACLE APPLICATIONS DEVELOPER) Glucose, POC 335(H) 70 - 199 mg/dL [facility] Blood specimen (specimen) 11/20/2019 5:15 PM ORACLE APPLICATIONS DEVELOPER 11/20/2019 5:15 PM ORACLE APPLICATIONS DEVELOPER us Josué Del Valle MD PhD LAB POCT ORDERABLES - DE VICE Final Result Performing Organization Address [facility] [place] [address] * CT Chest W Contrast (11/20/2019 5:06 PM ORACLE APPLICATIONS DEVELOPER) Anatomical Region Laterality Modality Body N/A Computed Tomogra phy 11/20/2019 5:20 PM ORACLE APPLICATIONS DEVELOPER Impressions 11/20/2019 5:20 PM ORACLE APPLICATIONS DEVELOPER 1. ??Scattered tree-in-bud and nodular opacities throughout [...] Bri Collins D.O. Narrative 11/20/2019 5:20 PM ORACLE APPLICATIONS DEVELOPER EXAMINATION: ??Computed tomography of the chest with [...] * (ABNORMAL) POCT glucose (11/20/2019 3:08 PM ORACLE APPLICATIONS DEVELOPER) Glucose, POC 279(H) 70 - 199 mg/dL [facility] Blood specimen (specimen) 11/20/2019 3:08 PM ORACLE APPLICATIONS DEVELOPER 11/20/2019 3:08 PM ORACLE APPLICATIONS DEVELOPER us Josué Del Valle MD PhD LAB POCT ORDERABLES - DE VICE Final Result Performing Organization Address [facility] Co pa Phone Number [facility] Department [place] [address] * (ABNORMAL) POCT glucose (11/20/2019 1:18 PM ORACLE APPLICATIONS DEVELOPER) Glucose, POC 438(H) 70 - 199 mg/dL [facility] Blood specimen (specimen) 11/20/2019 1:18 PM ORACLE APPLICATIONS DEVELOPER 11/20/2019 1:18 PM ORACLE APPLICATIONS DEVELOPER us Josué Del Valle MD PhD LAB POCT ORDERABLES - DE VICE Final Result Performing Organization Address [facility] Phone Number [facility] Department [place] [address] * X-ray chest 1 view (Portable) (11/20/2019 1:12 PM ORACLE APPLICATIONS DEVELOPER) Anatomical Region Laterality Modality Body, Chest N/A Computed Radiogr aphy 11/20/2019 2:13 PM ORACLE APPLICATIONS DEVELOPER Impressions 11/20/2019 3:59 PM ORACLE APPLICATIONS DEVELOPER Comparison to 08/22/2019. Redemonstrated are bilateral emphysematous [...] Candice Lara M.D. Narrative 11/20/2019 3:59 PM ORACLE APPLICATIONS DEVELOPER EXAMINATION: 1 view chest radiograph Procedure Note [...] signed by: Candice Lara M.D. Iza Gordon AUTO EMISSIONS TECHNICIAN IMG XR PROCEDURES Fi nal Result * Fibrinogen (11/20/2019 12:35 PM ORACLE APPLICATIONS DEVELOPER) Pathologist [facility] [place] Fibrinogen 322 170 - 400 mg/dL [facility] Blood specimen (specimen) 11/20/2019 12:35 PM ORACLE APPLICATIONS DEVELOPER 11/20/2019 12:44 PM ORACLE APPLICATIONS DEVELOPER [facility] LAB BLOOD ORDERABLES Final Result Performing Organization Address City/[facility]/ZIP Co de Phone Number [facility] [place] [place] [address] * Type and screen (11/20/2019 12:35 PM ORACLE APPLICATIONS DEVELOPER) Pathologist [facility] [place] Ursula, indirect Negative [facility] ABO Rh A Positive [facility] Blood specimen (specimen) 11/20/2019 12:35 PM ORACLE APPLICATIONS DEVELOPER 11/20/2019 12:48 PM ORACLE APPLICATIONS DEVELOPER Narrative [facility] - 11/20/2019 1:40 PM ORACLE APPLICATIONS DEVELOPER Has the patient had Daratumumab (Darzalex) in the past 6 months?->Unknown [facility] LAB [facility]LO[facility]ANK TEST ORDERABLES Final Result [facility] [place] [place] [address] * aPTT (11/20/2019 12:35 PM ORACLE APPLICATIONS DEVELOPER) [facility] aPTT 25 25 - 37 sec [facility] Comment: Interpretive data Heparin therapeutic range: 60-90 seconds Range based on correlation with therapeutic heparin activity range of 0.3-0.7 units/ml. Current interpretive data was last revised on 2019. Blood specimen (specimen) 11/20/2019 12:35 PM ORACLE APPLICATIONS DEVELOPER 11/20/2019 12:44 PM ORACLE APPLICATIONS DEVELOPER [facility] Adriana Gordon NP LAB BLOOD ORDERABLES Final Result Performing Organization Address [facility] Co de Phone Number [facility] [place] [place] [address] * Protime-INR (11/20/2019 12:35 PM ORACLE APPLICATIONS DEVELOPER) [facility] PT 10.3 8.6 - 13.0 sec [facility] INR 1.0 0.8 - 1.2 [facility] Comment: Interpretive data Oral anticoagulant therapeutic ranges: Venous thromboembolism prophylaxis or treatment: 2.0-3.0 CARDIOLOGY Standard range: 2.0-3.0 High-intensity range: 2.5-3.5 Refer to indication-specific guidelines for appropriate target ranges for prosthetic heart valve replacement. Current interpretive data was last revised on 2019. Blood specimen (specimen) 11/20/2019 12:35 PM ORACLE APPLICATIONS DEVELOPER 11/20/2019 12:44 PM ORACLE APPLICATIONS DEVELOPER Iza Adriana Gordon NP LAB BLOOD ORDERABLES Final Result Performing Organization Address City/[facility]/ZIP Co de Phone Number [facility] [place] [place] [address] * Respiratory pathogen PCR Nasopharyngeal (11/20/2019 12:31 PM ORACLE APPLICATIONS DEVELOPER) [facility] Adenovirus DNA Not Detected Not Detected [facility] Coronavirus 229E RNA Not Detected Not Detected [facility] Coronavirus HKU1 RNA Not Detected Not Detected [facility] Coronavirus NL63 RNA Not Detected Not Detected [facility] Coronavirus OC43 RNA Not Detected Not Detected [facility] Metapneumovirus RNA Not Detected Not Detected [facility] Rhinovirus/Enterov irus RNA Not Detected Not Detected [facility] Influenza A RNA Not Detected Not Detected [facility] Influenza B RNA Not Detected Not Detected [facility] Parainfluenza 1 RNA Not Detected Not Detected [facility] Parainfluenza 2 RNA Not Detected Not Detected [facility] Parainfluenza 3 RNA Not Detected Not Detected [facility] Parainfluenza 4 RNA Not Detected Not Detected [facility] RSV RNA Not Detected Not Detected [facility] B. pertussis DNA Not Detected Not Detected [facility] C. pneumoniae DNA Not Detected Not Detected [facility] M. pneumoniae DNA Not Detected Not Detected [facility] B. parapertussis DNA Not Detected Not Detected [facility] Comment: The [employer] FilmArray Respiratory Panel (RP2) assay is a [...] FilmArray RP2 assay is FDA cleared for AUTO EMISSIONS TECHNICIAN swabs. ??Additional sample types have been validated according to CLIA regulations. The performance characteristics of this assay have been determined by [facility] Infectious Disease [facility]. Current interpretive data was last revised on 2018. Nasopharyngeal 11/20/2019 12 :31 PM ORACLE APPLICATIONS DEVELOPER 11/20/2019 12:52 PM ORACLE APPLICATIONS DEVELOPER Iza Gordon AUTO EMISSIONS TECHNICIAN LAB MICROBIOLOGY - G ENERAL ORDERABLES Final Result [facility] Department [place] [address] * Blood culture Blood Antecubital, right (11/20/2019 12:30 PM ORACLE APPLICATIONS DEVELOPER) Report Final Report: No growth [facility]OM[facility]ERS Blood specimen (specimen) (Antecubital, right) 11/20/2019 12:30 PM ORACLE APPLICATIONS DEVELOPER 11/20/2019 12:56 PM ORACLE APPLICATIONS DEVELOPER Narrative ZULEMA DENT - 11/25/2019 4:00 PM ORACLE APPLICATIONS DEVELOPER From a different site than #1. 1. [...] performance characteristics have been verified by the [facility]. 5. For questions about this culture, contact the Microbiology Laboratory at [phone]. Interpretive data was last revised on 2018. Iza Gordon NP LAB MICROBIOLOGY - G ENERAL ORDERABLES Final Result [facility]ULEMA SOM[facility]ERS [facility] Department [place] [address] * Blood culture Blood Antecubital, left (11/20/2019 12:30 PM ORACLE APPLICATIONS DEVELOPER) Report Final Report: No growth ZULEMA SOMMERS Blood specimen (specimen) (Antecubital, left) 11/20/2019 12:30 PM ORACLE APPLICATIONS DEVELOPER 11/20/2019 12:56 PM ORACLE APPLICATIONS DEVELOPER Narrative ZULEMA SOMMERS - 11/25/2019 4:00 PM ORACLE APPLICATIONS DEVELOPER 1. Blood cultures are incubated for 5 [...] performance characteristics have been verified by the [facility]. 5. For questions about this culture, contact the Microbiology Laboratory at [phone]. Interpretive data was last revised on 2018. Iza Gordon NP LAB MICROBIOLOGY - G ENERAL ORDERABLES Final Result ZULEMA [facility] Department [place] [address] * ECG 12 lead (11/20/2019 12:08 PM ORACLE APPLICATIONS DEVELOPER) Pathologist [facility] [place] Ventricular Rate EKG/Min 64 BPM [facility] Atrial Rate 64 BPM [facility] ND-Interval (MSEC) 132 ms [facility] QRS-Interval (MSEC) 88 ms [facility] QT-Interval (MSEC) 404 ms [facility] QTc 416 ms [facility] P Rousseau 23 degrees [facility] R Rousseau 57 degrees [facility] T Rousseau 63 degrees [facility] Diagnosis Normal sinus rhythm Left atrial enlargement Borderline ECG When compared with ECG of 22-NOV-2018 18:30, Non-specific change in ST segment in Inferior leads T wave inversion no longer evident in Inferior leads Confirmed by SOHAM WINTERS M.D ([id number]) on 11/21/2019 8:54:12 PM [facility] 11/20/2019 12:0 8 PM ORACLE APPLICATIONS DEVELOPER 11/21/2019 8:54 PM ORACLE APPLICATIONS DEVELOPER Iza Gordon NP ECG ORDERABLES Pilar l Result [facility] documented in this encounter Visit Diagnoses Diagnosis 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)- Primary 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) Vitamin D deficiency Type 2 diabetes mellitus with hyperosmolarity without coma, with long-term current use of insulin (HCC) Ppmot-syvuws-occl disease (HCC) Type 2 diabetes mellitus with hyperglycemia, with long-term current use of insulin (HCC) Owknj-touxlt-icoz disease (HCC) Osteopenia Disorder of bone and cartilage, unspecified DVT (deep venous thrombosis) ([facility] (HCC) Acute venous embolism and thrombosis of unspecified deep vessels of lower extremity Type 2 diabetes mellitus ([facility]) Shortness of breath COPD, severe (HCC) CHF (congestive heart failure) ([facility]) (HCC) Congestive heart failure, unspecified Peripheral neuropathy [...] Prophylaxis, MedicalIndications:Prophylaxis, Medical Given 11/28/2019 8:28 AM ORACLE APPLICATIONS DEVELOPER 400 mg Given 11/27/2019 11:18 PM ORACLE APPLICATIONS DEVELOPER 400 mg Given 11/27/2019 5:00 PM ORACLE APPLICATIONS DEVELOPER 400 mg albuterol 2.5 mg /3 mL [...] 2.5 mg, nebulization, Every 4 hours PRN (cyber incident responder), wheezing, Starting on Sat11/22/19 at 1534 Given 11/28/2019 10:04 AM ORACLE APPLICATIONS DEVELOPER 2.5 mg Given 11/27/2019 11:41 PM ORACLE APPLICATIONS DEVELOPER 2.5 mg Given 11/26/2019 9:53 PM ORACLE APPLICATIONS DEVELOPER 2.5 mg aluminum & magnesium rpuqhacsc-iplkubuzmcn-ughzcmkj dramine-lidocaine (MAGIC MOUTHWASH) suspension 1-1-1 15 mL, swish & swallow, 4 times daily PRN, other, mucositis, Starting on Sat11/20/19 at 1216, Indications: Chemotherapy-Induced MucositisIndications:Chemother apy-Induced Mucositis amoxicillin-clavulanate (AUGMENTIN) 875-125 mg per tablet 875 mg of amoxicillin 875 mg of amoxicillin, oral, 2 times daily, First dose on Sat11/27/19 at 1300, Indications: Pneumonia, AspirationIndications:Pneumoni a, Aspiration Given 11/28/2019 8:29 AM ORACLE APPLICATIONS DEVELOPER 875 mg of amoxicillin Given 11/27/2019 8:36 PM ORACLE APPLICATIONS DEVELOPER 875 mg of amoxicillin Given 11/27/2019 1:11 PM ORACLE APPLICATIONS DEVELOPER 875 mg of amoxicillin atorvastatin (LIPITOR) tablet 40 mg 40 mg, oral, Daily, First dose on Sat11/20/19 at 1500 Given 11/28/2019 8:28 AM ORACLE APPLICATIONS DEVELOPER 40 mg Given 11/27/2019 8:33 AM ORACLE APPLICATIONS DEVELOPER 40 mg Given 11/26/2019 8:27 AM ORACLE APPLICATIONS DEVELOPER 40 mg azithromycin (ZITHROMAX) tablet 250 mg 250 mg, oral, 3 times weekly (Once per day on Sat), First dose (after last modification) on Sat11/20/19 at 1545, Indications: Prophylaxis, MedicalIndications:Prophylaxis, Medical Given 11/27/2019 8:33 AM ORACLE APPLICATIONS DEVELOPER 250 mg Given 11/25/2019 8:37 AM ORACLE APPLICATIONS DEVELOPER 250 mg Given 11/23/2019 8:42 AM ORACLE APPLICATIONS DEVELOPER 250 mg bacitracin-polymyxin B (POLYSPORIN) 500-10,000 unit/gram [...] Indications: SepsisIndications:Sepsis New Bag 11/27/2019 5:00 AM ORACLE APPLICATIONS DEVELOPER 2,000 mg 40 mL/ hr New Bag 11/26/2019 5:11 PM ORACLE APPLICATIONS DEVELOPER 2,000 mg 40 mL/hr New Bag 11/26/2019 5:48 AM ORACLE APPLICATIONS DEVELOPER 2,000 mg 40 mL/hr cholecalciferol (VITAMIN D-3) capsule 2,000 Units 2,000 Units, oral, Daily, First dose on Sat11/23/19 at 1430Indications:Vitamin D deficiency Given 11/28/2019 8:29 AM ORACLE APPLICATIONS DEVELOPER 2,000 Units Given 11/27/2019 8:33 AM ORACLE APPLICATIONS DEVELOPER 2,000 Units Given 11/26/2019 8:27 AM ORACLE APPLICATIONS DEVELOPER 2,000 Units dextrose (D10W) 10% bolus 250 [...] Call MD for each episode of hypoglycemia. LAUNDRY MACHINE TENDER STATES GLUTOSE-15 CONTAINS GLUCOSE 40% [...] Call MD for each episode of hypoglycemia. LAUNDRY MACHINE TENDER STATES GLUTOSE-15 CONTAINS GLUCOSE 40% W/W (50% W/V), Indications: hypoglycemic disorderIndications:hypoglycemic disorder diphenhydrAMINE (BENADRYL) tab/cap 25 mg 25 mg, oral, Nightly PRN, sleep, Starting on 11/22/19 at 0041 Given 11/22/2019 1:00 AM ORACLE APPLICATIONS DEVELOPER 25 mg ergocalciferol (VITAMIN D) capsule 50,000 Units 50,000 Units, oral, Weekly, First dose on Sat11/20/19 at 1500, For 194 days Given 11/27/2019 8:33 AM ORACLE APPLICATIONS DEVELOPER 50,000 U nits fluticasone propion-salmeterol (ADVAIR DISKUS) 100-50 mcg/dose diskus inhaler 1 puff 1 puff, inhalation, 2 times daily (cyber incident responder), First dose on Sat11/20/19 at 2000, Rinse mouth with water after use. Do not swallow. Given 11/21/2019 7:53 AM ORACLE APPLICATIONS DEVELOPER 1 puff Given 11/20/2019 7:59 PM ORACLE APPLICATIONS DEVELOPER 1 puff fluticasone propion-salmeterol (ADVAIR DISKUS) 100-50 mcg/dose diskus inhaler 1 puff 1 puff, inhalation, 2 times daily, First dose (after last modification) on 11/21/19 at 2100, Rinse mouth with water after use. Do not swallow. Given 11/28/2019 8:43 AM ORACLE APPLICATIONS DEVELOPER 1 puff Given 11/27/2019 8:43 PM ORACLE APPLICATIONS DEVELOPER 1 puff Given 11/27/2019 8:37 AM ORACLE APPLICATIONS DEVELOPER 1 puff furosemide (LASIX) tablet 20 mg 20 mg, oral, Daily, First dose on Sat11/20/19 at 1500 Given 11/28/2019 8:29 AM ORACLE APPLICATIONS DEVELOPER 20 mg Given 11/27/2019 8:33 AM ORACLE APPLICATIONS DEVELOPER 20 mg Given 11/26/2019 8:27 AM ORACLE APPLICATIONS DEVELOPER 20 mg gabapentin (NEURONTIN) capsule 300 mg 300 mg, oral, 4 times daily, First dose on Sat11/20/19 at 1700 Given 11/28/2019 12:14 PM ORACLE APPLICATIONS DEVELOPER 300 mg Given 11/28/2019 8:35 AM ORACLE APPLICATIONS DEVELOPER 300 mg Given 11/27/2019 8:36 PM ORACLE APPLICATIONS DEVELOPER 300 mg glucagon injection 1 mg 1 [...] otherwise manipulate tablet/capsule. Given 11/28/2019 8:28 AM ORACLE APPLICATIONS DEVELOPER 600 mg Given 11/27/2019 8:36 PM ORACLE APPLICATIONS DEVELOPER 600 mg Given 11/27/2019 8:34 AM ORACLE APPLICATIONS DEVELOPER 600 mg heparin 10 unit/mL flush 20-50 [...] Indwelling Vascular Catheter Given 11/28/2019 8:30 AM ORACLE APPLICATIONS DEVELOPER 50 U nits Given 11/27/2019 8:45 PM ORACLE APPLICATIONS DEVELOPER 50 Units Given 11/23/2019 8:43 AM ORACLE APPLICATIONS DEVELOPER 50 Units insulin glargine (LANTUS) injection 30 Units 30 Units, subcutaneous, Every morning, First dose on Sat11/20/19 at 1345, Do not mix with other insulins, Indications: Diabetes MellitusIndications:Diabetes Mellitus Given 11/22/2019 9:14 AM ORACLE APPLICATIONS DEVELOPER 30 Units Left Upper Arm Given 11/21/2019 10:06 AM ORACLE APPLICATIONS DEVELOPER 30 Units R ight Upper Arm Given 11/20/2019 1:18 PM ORACLE APPLICATIONS DEVELOPER 30 Units Le ft Lower Abdomen insulin glargine (LANTUS) injection 40 Units 40 Units, subcutaneous, Nightly, First dose on Sat11/23/19 at 2100, Do not mix with other insulins, Indications: Diabetes MellitusIndications:Diabete s Mellitus Given 11/27/2019 9:00 PM ORACLE APPLICATIONS DEVELOPER 40 Units Right Lower Abdomen Given 11/26/2019 9:06 PM ORACLE APPLICATIONS DEVELOPER 40 Units Le ft Upper Arm Given 11/25/2019 9:16 PM ORACLE APPLICATIONS DEVELOPER 40 Units Le ft Upper Arm insulin [...] Diabetes MellitusIndications:Diabetes Mellitus Given 11/20/2019 8:12 PM ORACLE APPLICATIONS DEVELOPER 3 Units Right Lower Abdomen insulin lispro [...] Diabetes MellitusIndications:Diabetes Mellitus Given 11/26/2019 9:06 PM ORACLE APPLICATIONS DEVELOPER 4 Units Left Upper Arm Given 11/25/2019 9:16 PM ORACLE APPLICATIONS DEVELOPER 4 Units Le ft Upper Arm insulin [...] Diabetes MellitusIndications:Diabetes Mellitus Given 11/22/2019 6:01 PM ORACLE APPLICATIONS DEVELOPER 7 Units Left Upper Arm Given 11/22/2019 12:34 PM ORACLE APPLICATIONS DEVELOPER 7 Units R ight Upper Arm Given 11/22/2019 7:53 AM ORACLE APPLICATIONS DEVELOPER 7 Units Ri ght Upper Arm insulin [...] Diabetes MellitusIndications:Diabetes Mellitus Given 11/28/2019 8:31 AM ORACLE APPLICATIONS DEVELOPER 3 Units Right Upper Abdomen Given 11/27/2019 5:32 PM ORACLE APPLICATIONS DEVELOPER 7 Units Le ft Lower Abdomen Given 11/27/2019 7:21 AM ORACLE APPLICATIONS DEVELOPER 5 Units Le ft Lower Abdomen insulin lispro (HumaLOG) injection 10 Units 10 Units, subcutaneous, Once, On Sat11/20/19 at 1800, For 1 dose, Indications: HyperglycemiaIndications:Hyp erglycemia Given 11/20/2019 5:22 PM ORACLE APPLICATIONS DEVELOPER 10 Units Left Lower Abdomen insulin lispro (HumaLOG) injection 10 Units 10 Units, subcutaneous, Once, On Sat11/25/19 at 0615, For 1 dose, Indications: HyperglycemiaIndications:Hyp erglycemia Given 11/25/2019 6:02 AM ORACLE APPLICATIONS DEVELOPER 10 Units Left Lower Abdomen insulin lispro (HumaLOG) injection 10 Units 10 Units, subcutaneous, Once, On Sat11/27/19 at 2345, For 1 dose, Indications: HyperglycemiaIndications:Hyp erglycemia Given 11/27/2019 11:17 PM ORACLE APPLICATIONS DEVELOPER 10 Units Right Lower Abdomen insulin lispro [...] patient's insulin dose. Given 11/22/2019 6:01 PM ORACLE APPLICATIONS DEVELOPER 12 Units Left Upper Arm Given 11/22/2019 12:34 PM ORACLE APPLICATIONS DEVELOPER 12 Units R ight Upper Arm Given 11/22/2019 7:53 AM ORACLE APPLICATIONS DEVELOPER 12 Units Ri ght Upper Arm insulin lispro (HumaLOG) injection 12 Units 12 Units, subcutaneous, Once, On Sat11/25/19 at 1800, For 1 dose, Indications: HyperglycemiaIndications:Hyp erglycemia Given 11/25/2019 5:31 PM ORACLE APPLICATIONS DEVELOPER 12 Units Right Lower Abdomen insulin lispro (HumaLOG) injection 15 Units 15 Units, subcutaneous, Once, On Sat11/21/19 at 2230, For 1 dose, Indications: HyperglycemiaIndications:Hyp erglycemia Given 11/21/2019 10:01 PM ORACLE APPLICATIONS DEVELOPER 15 Units Left Lower Abdomen insulin lispro [...] Diabetes MellitusIndications:Diabetes Mellitus Given 11/27/2019 5:32 PM ORACLE APPLICATIONS DEVELOPER 15 Units Left Lower Abdomen Given 11/27/2019 1:10 PM ORACLE APPLICATIONS DEVELOPER 15 Units Ri ght Upper Arm Given 11/27/2019 7:21 AM ORACLE APPLICATIONS DEVELOPER 15 Units Le ft Lower Abdomen insulin lispro (HumaLOG) injection 15 Units 15 Units, subcutaneous, Once, On Sat11/25/19 at 0400, For 1 dose, Indications: HyperglycemiaIndications:Hyp erglycemia Given 11/25/2019 3:28 AM ORACLE APPLICATIONS DEVELOPER 15 Units Left Lower Abdomen insulin lispro [...] Diabetes MellitusIndications:Diabetes Mellitus Given 11/24/2019 7:40 AM ORACLE APPLICATIONS DEVELOPER 20 Units Right Upper Arm Given 11/23/2019 6:50 PM ORACLE APPLICATIONS DEVELOPER 20 Units Le ft Upper Arm insulin [...] Diabetes MellitusIndications:Diabetes Mellitus Given 11/28/2019 12:14 PM ORACLE APPLICATIONS DEVELOPER 20 Units Right Upper Arm Given 11/28/2019 8:31 AM ORACLE APPLICATIONS DEVELOPER 20 Units Ri ght Upper Abdomen insulin lispro (HumaLOG) injection 6 Units 6 Units, subcutaneous, Once, On Sat11/22/19 at 2315, For 1 dose, Indications: HyperglycemiaIndications:Hy perglycemia Given 11/22/2019 11:05 PM ORACLE APPLICATIONS DEVELOPER 6 Units Right Lower Abdomen insulin lispro (HumaLOG) injection 6 Units 6 Units, subcutaneous, As needed, high blood sugar, with snacks, Starting on Sat11/25/19 at 1639 Given 11/26/2019 9:08 PM ORACLE APPLICATIONS DEVELOPER 6 Units Left Upper Arm insulin lispro (HumaLOG) injection 7 Units 7 Units, subcutaneous, Once, On Sat11/24/19 at 2215, For 1 dose, Indications: HyperglycemiaIndications:Hy perglycemia Given 11/24/2019 9:59 PM ORACLE APPLICATIONS DEVELOPER 7 Units Left Upper Abdomen insulin lispro (HumaLOG) injection 7 Units 7 Units, subcutaneous, Once, On Sat11/25/19 at 0030, For 1 dose, Indications: HyperglycemiaIndications:Hy perglycemia Given 11/25/2019 12:05 AM ORACLE APPLICATIONS DEVELOPER 7 Units Right Lower Abdomen insulin NPH (HumuLIN N, NovoLIN N) injection 10 Units 10 Units, subcutaneous, 2 times daily, First dose (after last modification) on Sat11/24/19 at 2100, Administer with steroids. Hold if steroids held or discontinued. Notify MD if steroid dose changes or held., Indications: Diabetes MellitusIndications:Diabete s Mellitus Given 11/26/2019 8:28 AM ORACLE APPLICATIONS DEVELOPER 10 Units Left Upper Arm Given 11/25/2019 9:16 PM ORACLE APPLICATIONS DEVELOPER 10 Units Le ft Upper Arm Given 11/25/2019 8:37 AM ORACLE APPLICATIONS DEVELOPER 10 Units Ri ght Lower Abdomen insulin NPH (HumuLIN N, NovoLIN N) injection 15 Units 15 Units, subcutaneous, 2 times daily, First dose on Sat11/22/19 at 0915, Administer with steroids. Hold if steroids held or discontinued. Notify MD if steroid dose changes or held., Indications: Diabetes MellitusIndications:Diabetes Mellitus Given 11/22/2019 10:10 PM ORACLE APPLICATIONS DEVELOPER 15 Units Right Lower Abdomen Given 11/22/2019 9:14 AM ORACLE APPLICATIONS DEVELOPER 15 Units Le ft Upper Arm insulin NPH (HumuLIN N, NovoLIN N) injection 15 Units 15 Units, subcutaneous, 2 times daily, First dose on Sat11/23/19 at 1430, Administer with steroids. Hold if steroids held or discontinued. Notify MD if steroid dose changes or held., Indications: Diabetes MellitusIndications:Diabetes Mellitus Given 11/24/2019 9:41 AM ORACLE APPLICATIONS DEVELOPER 15 Units Right Upper Arm Given 11/23/2019 8:32 PM ORACLE APPLICATIONS DEVELOPER 15 Units Le ft Lower Abdomen Given 11/23/2019 2:32 PM ORACLE APPLICATIONS DEVELOPER 15 Units Ri ght Upper Arm insulin NPH (HumuLIN N, NovoLIN N) injection 15 Units 15 Units, subcutaneous, Daily, First dose (after last modification) on Sat11/27/19 at 0900, Administer with steroids. Hold if steroids held or discontinued. Notify MD if steroid dose changes or held., Indications: Diabetes MellitusIndications:Diabete s Mellitus Given 11/28/2019 8:30 AM ORACLE APPLICATIONS DEVELOPER 15 Units Right Upper Abdomen Given 11/27/2019 7:21 AM ORACLE APPLICATIONS DEVELOPER 15 Units Le ft Lower Abdomen insulin regular (HumuLIN R, NovoLIN R) injection 10 Units 10 Units, intravenous, Once, On Sat11/23/19 at 1915, For 1 dose Given 11/23/2019 6:46 PM ORACLE APPLICATIONS DEVELOPER 10 Units insulin regular (HumuLIN R, NovoLIN R) injection 10 Units 10 Units, intravenous, Once, On Sat11/23/19 at 2100, For 1 dose Given 11/23/2019 8:32 PM ORACLE APPLICATIONS DEVELOPER 10 Units insulin regular (HumuLIN R, NovoLIN R) injection 10 Units 10 Units, intravenous, Once, On Sat11/23/19 at 2245, For 1 dose Given 11/23/2019 10:23 PM ORACLE APPLICATIONS DEVELOPER 10 Units insulin regular (HumuLIN R, NovoLIN R) injection 5 Units 5 Units, intravenous, Once, On Sat11/23/19 at 0145, For 1 dose, Indications: HyperglycemiaIndications:Hypergly cemia Given 11/23/2019 1:22 AM ORACLE APPLICATIONS DEVELOPER 5 Units insulin regular (HumuLIN R, NovoLIN R) injection 6 Units 6 Units, intravenous, Once, On Sat11/20/19 at 1400, For 1 dose, Indications: HyperglycemiaIndications:Hypergly cemia Given 11/20/2019 2:07 PM ORACLE APPLICATIONS DEVELOPER 6 Units insulin regular (HumuLIN R, NovoLIN R) injection 8 Units 8 Units, intravenous, Once, On Sat11/21/19 at 0545, For 1 dose, Indications: HyperglycemiaIndications:Hypergly cemia Given 11/21/2019 5:24 AM ORACLE APPLICATIONS DEVELOPER 8 Units insulin regular bolus from bag [...] Mellitus Bolus from Bag 11/23/2019 9:05 AM ORACLE APPLICATIONS DEVELOPER 10 Units insulin regular bolus from bag 4-6 Units 4-6 Units, intravenous, Every 1 hour PRN, high blood sugar per infusion instructions., Starting on Sat11/23/19 at 0829, Administer additional IV bolus doses as directed in insulin infusion order., Indications: Diabetes MellitusIndications:Diabetes Mellitus Bolus from Bag 11/23/2019 11:49 AM ORACLE APPLICATIONS DEVELOPER 6 Units Bolus from Bag 11/23/2019 10:29 AM ORACLE APPLICATIONS DEVELOPER 6 Units insulin regular in 0.9% sodium [...] RoutineIndications:Diabetes Mellitus New Bag 11/23/2019 2:47 PM ORACLE APPLICATIONS DEVELOPER 5 Units/hr 5 mL/hr Rate/Dose Verify 11/23/2019 1:47 PM ORACLE APPLICATIONS DEVELOPER 11 Units/hr 11 mL/ hr Rate/Dose Change 11/23/2019 1:00 PM ORACLE APPLICATIONS DEVELOPER 11 Units/hr 11 mL/ hr [facility] ruxolitinib (/INCB [id number]) tablet 5 mg 5 mg, oral, 2 times daily, First dose on Sat11/27/19 at 2100Indications:Pzjkr-nfnmqy-xhjv disease (HCC) Given 11/28/2019 8:45 AM ORACLE APPLICATIONS DEVELOPER 5 mg Given 11/27/2019 10:00 PM ORACLE APPLICATIONS DEVELOPER 5 mg ioversol (OPTIRAY 350) syringe syringe 100 mL 100 mL, intravenous, Once in imaging, contrast, Starting on Sat11/20/19 at 1651, For 1 dose Given 11/20/2019 5:06 PM ORACLE APPLICATIONS DEVELOPER 100 mL loperamide (IMODIUM) capsule 2 mg [...] Sat11/20/19 at 2100 Given 11/27/2019 8:37 PM ORACLE APPLICATIONS DEVELOPER 10 mg Given 11/26/2019 9:07 PM ORACLE APPLICATIONS DEVELOPER 10 mg Given 11/25/2019 9:16 PM ORACLE APPLICATIONS DEVELOPER 10 mg mycophenolate mofetil (CELLCEPT) tablet 1,000 mg 1,000 mg, oral, 2 times daily, First dose on Sat11/20/19 at 2100, Do not crush, chew, cut, dissolve, open or otherwise manipulate tablet/capsule. Given 11/28/2019 8:28 AM ORACLE APPLICATIONS DEVELOPER 1,000 mg Given 11/27/2019 8:36 PM ORACLE APPLICATIONS DEVELOPER 1,000 mg Given 11/27/2019 8:33 AM ORACLE APPLICATIONS DEVELOPER 1,000 mg nicotine (NICODERM CQ) 21 mg patch 24 hour 1 patch 1 patch, transdermal, Administer over 24 Hours, Daily, First dose on Sat11/20/19 at 1500 Medication Applied 11/28/2019 8:33 AM ORACLE APPLICATIONS DEVELOPER 1 patch Left Arm Medication Applied 11/27/2019 8:33 AM ORACLE APPLICATIONS DEVELOPER 1 patch Right Arm Medication Applied 11/26/2019 8:30 AM ORACLE APPLICATIONS DEVELOPER 1 patch Left Arm ofloxacin (OCUFLOX) 0.3 % ophthalmic solution 1 drop 1 drop, each eye, 2 times daily, First dose on Sat11/20/19 at 2100 Given 11/28/2019 8:43 AM ORACLE APPLICATIONS DEVELOPER 1 drop Given 11/27/2019 8:43 PM ORACLE APPLICATIONS DEVELOPER 1 drop Given 11/27/2019 8:37 AM ORACLE APPLICATIONS DEVELOPER 1 drop oxyCODONE (ROXICODONE) tablet 5 mg 5 mg, oral, 4 times daily PRN, 1st line for pain, Starting on Sat11/20/19 at 1936, Indications: PainIndications:Pain Given 11/28/2019 5:04 AM ORACLE APPLICATIONS DEVELOPER 5 mg Given 11/27/2019 5:06 PM ORACLE APPLICATIONS DEVELOPER 5 mg Given 11/27/2019 6:33 AM ORACLE APPLICATIONS DEVELOPER 5 mg perflutren protein-a (OPTISON) 3 mL in sodium chloride 0.9% 8 mL syringe 1-8 mL, intravenous, Once in imaging, contrast, Starting on Sat11/23/19 at 1600, For 1 dose, Intra-Procedure (CV) Given by Other 11/23/2019 4:01 PM ORACLE APPLICATIONS DEVELOPER 6 mL polyvinyl alcohol (LIQUIFILM TEARS) 1.4 [...] Sat11/23/19 at 2100 Given 11/26/2019 8:28 AM ORACLE APPLICATIONS DEVELOPER 20 mg Given 11/25/2019 9:15 PM ORACLE APPLICATIONS DEVELOPER 20 mg Given 11/25/2019 8:38 AM ORACLE APPLICATIONS DEVELOPER 20 mg predniSONE (DELTASONE) tablet 20 mg 20 mg, oral, Daily, First dose (after last modification) on Sat11/27/19 at 0900 Given 11/28/2019 8:29 AM ORACLE APPLICATIONS DEVELOPER 20 mg Given 11/27/2019 8:34 AM ORACLE APPLICATIONS DEVELOPER 20 mg predniSONE (DELTASONE) tablet 40 mg 40 mg, oral, 2 times daily, First dose on Sat11/20/19 at 2100 Given 11/23/2019 8:42 AM ORACLE APPLICATIONS DEVELOPER 40 mg Given 11/22/2019 8:18 PM ORACLE APPLICATIONS DEVELOPER 40 mg Given 11/22/2019 9:14 AM ORACLE APPLICATIONS DEVELOPER 40 mg rivaroxaban (XARELTO) tablet 20 mg [...] Venous ThrombosisIndications:Venous Thrombosis Given 11/27/2019 5:02 PM ORACLE APPLICATIONS DEVELOPER 20 m g Given 11/26/2019 4:39 PM ORACLE APPLICATIONS DEVELOPER 20 mg Given 11/25/2019 9:15 PM ORACLE APPLICATIONS DEVELOPER 20 mg ruxolitinib (JAKAFI) tablet 5 mg 5 mg, oral, 2 times daily, First dose on Sat11/23/19 at 1230, I have discussed continuation of this medication with the following solar project engineer/oncologist: Dipersio Given 11/27/2019 8:33 AM ORACLE APPLICATIONS DEVELOPER 5 mg Given 11/26/2019 9:07 PM ORACLE APPLICATIONS DEVELOPER 5 mg Given 11/26/2019 10:17 AM ORACLE APPLICATIONS DEVELOPER 5 mg sodium chloride (OCEAN) 0.65 % nasal spray 2 spray 2 spray, each nostril, Every 1 hour PRN, other, dryness, Starting on Sat11/20/19 at 1216, Indications: Dry NoseIndications:Dry Nose sodium chloride 0.9 % irrigation 30 mL 30 mL, swish & spit, 4 times daily, First dose on Sat11/20/19 at 1315, Use as mouth rinse for oral care. Given 11/28/2019 12:15 PM ORACLE APPLICATIONS DEVELOPER 30 mL Given 11/28/2019 8:42 AM ORACLE APPLICATIONS DEVELOPER 30 mL Given 11/27/2019 8:37 PM ORACLE APPLICATIONS DEVELOPER 30 mL sodium chloride 0.9% bolus 500 mL 500 mL, intravenous, Once, On Sat11/20/19 at 2015, For 1 dose New Bag 11/20/2019 8:13 PM ORACLE APPLICATIONS DEVELOPER 500 mL sodium chloride 0.9% flush 0.5-20 mL 0.5-20 mL, intra-catheter, Every 8 hours scheduled, First dose on Sat11/20/19 at 1400, Flush volume based on line type and size. Given 11/27/2019 1:10 PM ORACLE APPLICATIONS DEVELOPER 10 mL Given 11/27/2019 11:20 AM ORACLE APPLICATIONS DEVELOPER 10 mL Given 11/26/2019 4:40 PM ORACLE APPLICATIONS DEVELOPER 10 mL sodium chloride 0.9% flush 0.5-20 mL 0.5-20 mL, intra-catheter, As needed, line care, Starting on Sat11/20/19 at 1218, Flush volume based on line type and size. Flush before and after each use. Given 11/21/2019 9:06 AM ORACLE APPLICATIONS DEVELOPER 10 mL sodium chloride 0.9% infusion 30 mL/hr, intravenous, Continuous PRN, KVO for medication administrations, Starting on Sat11/20/19 at 1216 New Bag 11/24/2019 5:23 PM ORACLE APPLICATIONS DEVELOPER 30 mL/hr 30 mL/hr Rate/Dose Verify 11/21/2019 6:00 AM ORACLE APPLICATIONS DEVELOPER 30 mL/hr 30 mL/h r Rate/Dose Verify 11/21/2019 4:00 AM ORACLE APPLICATIONS DEVELOPER 30 mL/hr 30 mL/h r sodium chloride [...] ProphylaxisIndications:Pneumoc ystis/Toxoplasmosis Prophylaxis Given 11/26/2019 9:07 PM ORACLE APPLICATIONS DEVELOPER 160 mg of trimethoprim Given 11/26/2019 8:28 AM ORACLE APPLICATIONS DEVELOPER 160 mg of trimethoprim Given 11/23/2019 8:31 PM ORACLE APPLICATIONS DEVELOPER 160 mg of trimethoprim tacrolimus (PROGRAF) capsule 0.5 mg 0.5 mg, oral, Every other day, First dose on Sat11/20/19 at 1500, Avoid grapefruit juice Given 11/28/2019 8:28 AM ORACLE APPLICATIONS DEVELOPER 0 .5 mg Given 11/26/2019 8:27 AM ORACLE APPLICATIONS DEVELOPER 0.5 mg Given 11/24/2019 12:07 PM ORACLE APPLICATIONS DEVELOPER 0.5 mg tiotropium (SPIRIVA) 18 mcg per inhalation capsule 1 capsule 1 capsule, inhalation, Daily (cyber incident responder), First dose (after last modification) on Sat11/21/19 at 0800, To ensure drug delivery, the contents of each capsule should be inhaled twice. Inhalation only. Given 11/21/2019 7:53 AM ORACLE APPLICATIONS DEVELOPER 1 capsule tiotropium (SPIRIVA) 18 mcg per inhalation capsule 1 capsule 1 capsule, inhalation, Daily, First dose (after last modification) on Sat11/22/19 at 0900, To ensure drug delivery, the contents of each capsule should be inhaled twice. Inhalation only. Given 11/28/2019 9:53 AM ORACLE APPLICATIONS DEVELOPER 1 capsule Given 11/27/2019 8:36 AM ORACLE APPLICATIONS DEVELOPER 1 capsule Given 11/26/2019 8:30 AM ORACLE APPLICATIONS DEVELOPER 1 capsule vancomycin 1,000 mg/200 mL in dextrose 5% (premix) 1,000 mg 1,000 mg, intravenous, Administer over 60 Minutes, Every 12 hours, First dose (after last modification) on Sat11/22/19 at 2345, Indications: Neutropenic Fever, On hold since Sat11/24/2019 at 1350 until manually unheldIndications:Neutropenic Fever New Bag 11/24/2019 12:07 PM ORACLE APPLICATIONS DEVELOPER 1,000 mg New Bag 11/24/2019 12:42 AM ORACLE APPLICATIONS DEVELOPER 1,000 mg New Bag 11/23/2019 11:51 AM ORACLE APPLICATIONS DEVELOPER 1,000 mg vancomycin 1,250 mg/112.5 mL sodium chloride 0.9% (premix) 1,250 mg 1,250 mg (rounded from 1,161 mg = 15 mg/kg ? 77.4 kg), intravenous, Administer over 90 Minutes, Every 12 hours, First dose on Sat11/20/19 at 1900, Central line only, Indications: SepsisIndications:Sepsis New Bag 11/21/2019 9:00 AM ORACLE APPLICATIONS DEVELOPER 1,250 mg New Bag 11/20/2019 8:10 PM ORACLE APPLICATIONS DEVELOPER 1,250 mg vancomycin 1,250 mg/262.5 mL in sodium chloride 0.9% (premix) 1,250 mg 1,250 mg (rounded from 1,164 mg = 15 mg/kg ? 77.6 kg), intravenous, Administer over 60 Minutes, Every 12 hours, First dose on Sat11/21/19 at 2230, Indications: Neutropenic FeverIndications:Neutropenic Fever New Bag 11/22/2019 9:29 AM ORACLE APPLICATIONS DEVELOPER 1,250 mg New Bag 11/21/2019 10:38 PM ORACLE APPLICATIONS DEVELOPER 1,250 mg vancomycin 1500 mg/515 mL in sodium chloride 0.9% (premix) 1,500 mg 1,500 mg, intravenous, Administer over 90 Minutes, Every 24 hours, First dose on Sat11/25/19 at 1200, Indications: Pneumonia, AspirationIndications:Pneumonia, Aspiration New Bag 11/26/2019 11:50 AM ORACLE APPLICATIONS DEVELOPER 1,500 mg New Bag 11/25/2019 11:45 AM ORACLE APPLICATIONS DEVELOPER 1,500 mg voriCONAZOLE (VFEND) tablet 200 mg 200 mg, oral, 2 times daily, First dose on Sat11/20/19 at 2100, Indications: Prophylaxis, MedicalIndications:Prophylaxis, Medical Given 11/28/2019 8:28 AM ORACLE APPLICATIONS DEVELOPER 200 mg Given 11/27/2019 8:36 PM ORACLE APPLICATIONS DEVELOPER 200 mg Given 11/27/2019 8:33 AM ORACLE APPLICATIONS DEVELOPER 200 mg white petrolatum-mineral oil (EUCERIN) cream topical, Every 2 hours PRN, dry skin, Starting on Sat11/20/19 at 1216, Apply to affected area: other, Indications: Dry SkinIndications:Dry Skin documented in this encounter Discontinued Medications Medication Sig Discontinue Reason Start Date End Da te gabapentin (NEURONTIN) 300 mg capsuleIndications:Type 2 diabetes mellitus with hyperosmolarity without coma, with long-term current use of insulin ([facility]) TAKE 1 PO QD Reorder 08/21/2019 11/26/2019 [...] with long-term current use of insulin ([facility]) Inject 40 Units under the skin nightly [...] with long-term current use of insulin ([facility]) Inject 45 Units under the skin nightly [...] mg capsuleIndications:AML (acute myeloid leukemia) in remission (HCC),Ogqzq-chgqux-edrk disease (HCC),H/O allogeneic bone marrow transplant (HCC) TAKE 1 CAPSULE BY MOUTH EVERY 12 HOURS Stop Taking at Discharge 09/18/2019 11/28/2019 documented as of this encounter Active and Recently Administered Medications Times are shown in ORACLE APPLICATIONS DEVELOPER. Scheduled Medication Order 11/26/2019 11/27/2019 11/28/2019 acyclovir [...] 0830 (Given - Provider: Regi Oro, BECKI) [facility] ruxolitinib [facility] [id number][facility] tablet 5 mg 5 mg, oral, 2 times daily, First dose on Sat11/27/19 at 2100 2200 (Given - Provider: Betty Montemayor RN) 0845 (Given - Provider: Regi Oro RN) [facility] ruxolitinib (/INCB [id number]) tablet 5 mg 5 mg, oral, 2 times daily, First dose on Sat11/27/19 at 1330, Take at about the same time(s) each day with an 8oz glass of water. Doses may be taken without regard to food. Do not make up missed or vomited doses. Avoid grapefruit/grapefruit products and Salley oranges. 1330 (Due) montelukast (SINGULAIR) tablet 10 [...] continuation of this medication with the following solar project engineer/oncologist: Ivon 1017 (Given - Provider: Rosy Hidalgo [...] 2.5 mg, nebulization, Every 4 hours PRN (cyber incident responder), wheezing, Starting on Sat11/22/19 at 1534 2153 (Given - Provider: Abby Najera RRT) 0700 (Not Given - Provider: Yasmeen Solis, BECKI - Reason: Order parameters not met)2341 (Given - Provider: Eric Hunter, BRANDEN) 1004 (Given - Provider: Tasneem Bronson RRT) aluminum & magnesium ytishwlqg-yunrwzajqdu-eql henhydramine-lidocaine (MAGIC MOUTHWASH) suspension 1-1-1 15 mL, [...] Call MD for each episode of hypoglycemia. LAUNDRY MACHINE TENDER STATES GLUTOSE-15 CONTAINS GLUCOSE 40% [...] Call MD for each episode of hypoglycemia. LAUNDRY MACHINE TENDER STATES GLUTOSE-15 CONTAINS GLUCOSE 40% [...] Call MD for each episode of hypoglycemia. LAUNDRY MACHINE TENDER STATES GLUTOSE-15 CONTAINS GLUCOSE 40% [...] Call MD for each episode of hypoglycemia. LAUNDRY MACHINE TENDER STATES GLUTOSE-15 CONTAINS GLUCOSE 40% [...] First Ordered Date [facility]V-[facility] ruxolitinib (20 18-05-175/INCB [id number]) tablet 5 mg 1 11/27/2019 albuterol 2.5 [...] 2 puff 1 11/20/2019 aluminum & magnesium worwwsnfj-qsrfoeklqpo-ydxhydjjiaxccwy-lido aida (MAGIC MOUTHWASH) suspension 1-1-1 1 11/20/2019 [...] COMMUNICATION 4 1 11/27/2019 ONCBCN STUDY COMMUNICATION [id number] 1 020 ONCBCN TREATMENT PARAMETERS 1 11/27/2019 [...] documented as of this encounter Care Teams Transfer And Line Up Worker Relationship Specialty Start Date End Date Kirt Lindsay DO PCP - General 05/02/17 11/22/20 Josué Del Valle MD PhD Medical Oncologist/Occupational Therapy Assist Medical Oncology 08/26/19 documented as of this encounter
--- OUTSIDE RECORDS SUMMARY | 2024-11-22 13:06 | XMS_ITS | Encounter Summary ---
Author Organization [facility] Address [address] [facility] [address] [place] [address] Phone Care Team Providers Care Starch Crab Name Role Phone Kirt Lindsay DO Primary Care Provider [phone] Encounter Details Date Type Department Care Team (Late st Contact Info) Description 08/07/2019 Orders Only [facility] [address] [facility] [address] [place] [address] [place] [address] Penny Valero, RN Type 2 diabetes mellitus with hyperosmolarity without coma, with long-term current use of insulin (CMS/[facility]) (Primary Dx); Type 2 diabetes mellitus with hyperglycemia, with long-term current use of insulin (CMS/[facility]) Social History Tobacco Use Types Packs/Day Years Used Date Smoking Tobacco: Every Day Smokeless Tobacco: Never Comments:Pt not interested i n smoking cessation program Sex and Gender Information Value Date Recorded Sex Assigned at Not on file Legal Sex Male 10:48 AM 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
--- OUTSIDE RECORDS SUMMARY | 2024-11-22 13:06 | XMS_ITS | Encounter Summary ---
Author Organization [facility] Healthcare Address [address] [place] [address] Care Team Providers Care Vacation Planner Name Role Phone Kirt Lindsay DO Primary Care Provider [phone] Reason for Visit * Reason Comments Acute Myeloid Leukemia eval by [facility] Shortness of Breath Encounter Details Date Type Department Care Team (Latest Contact Info) Description 08/22/2019 10:54 AM CDT - 08/25/2019 5:17 PM CDT Hospital Encounter [address] [id number] Josué Del Valle MD PhD [address], [address] [place] [address] 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); Uchyb-nxlmzp-zhzs disease (CMS/HCC); Type 2 diabetes mellitus with [...] on file 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 Gender Identity Not on file Sexual [...] - ACUTE MYELOBLASTIC LEUKEMIA, IN REMISSION Chronic kqnni-oeliht-isav disease (HCC) - CHRONIC QFOKQ-CGHGFZ-FQYT DISEASE Chronic exbzg-ytvyxp-wqwp disease Other complications of bone marrow transplant [...] CAUSE OF ABNORMAL REACTION OF THE PATIENT, 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 - SHIP MANAGER (CURRENT) USE OF ANTICOAGULANTS Long-term (current) use of 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 (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) - CUSTODIAL (CURRENT) USE OF INSULIN termite exterminator (current) use of inhaled steroids - SHIP MANAGER (CURRENT) USE OF INHALED STEROIDS Personal history of other venous thrombosis and embolism - PERSONAL HISTORY OF OTHER VENOUS THROMBOSIS AND EMBOLISM Unspecified visual disturbance - UNSPECIFIED VISUAL DISTURBANCE termite exterminator (current) use of oral hypoglycemic drugs - SHIP MANAGER (CURRENT) USE OF ORAL HYPOGLYCEMIC DRUGS Other assisted (current) drug therapy - OTHER SHIP MANAGER (CURRENT) DRUG THERAPY Localized edema - LOCALIZED EDEMA Edema Other nonmedicinal substance allergy status - OTHER NONMEDICINAL SUBSTANCE ALLERGY STATUS documented in this encounter Discharge Summaries * Mari Singh MD - 08/25/2019 1:17 PM CDT Inpatient Discharge Summary BRIEF OVERVIEW Admitting Provider: Josué Del Valle MD PhD Discharge Provider: Josué Del Valle MD PhD Primary Care Physician at Discharge: Kirt Lindsay [phone] Admission Date: 08/22/2019 Discharge Date: 08/25/2019 Admission Location: [facility] Primary Discharge Diagnosis: COPD exacerbation Secondary Discharge Diagnosis: Osteopenia Aeqfo-gumvbg-sfri disease (CMS/HCC) AML (acute myeloid leukemia) in remission ([facility]/HCC) Type 2 diabetes mellitus ([facility]/HCC) Pure hypercholesterolemia COPD, severe ([facility]/HCC) DVT (deep venous thrombosis) ([facility]/HCC) DETAILS OF HOSPITAL STAY Presenting [...] x3. - Decitabine maintenance on the CALGB 98403 protocol. - Relapsed disease, status post an [...] consolidation x3??s/p decitabine maintenance on the CALGB 78147ayzoiams. He has relapsed disease,??status post an allogeneic [...] mg tabletIndications:AML (acute myeloid leukemia) in remission (HCC),Adtll-xwufgz-bcso disease (HCC) Take 4 tablets (80 mg) [...] hyperglycemia, with long-term current use of insulin (HCC),Dqqhv-xtwawq-litt disease (HCC),H/O allogeneic bone marrow transplant (HCC),Pure hypercholesterolemia Take 1 tablet (40 mg total) by mouth daily 30 tablet 6 9 01/15/20 20 BASEVELIN OAKES U-100 INSULIN 100 unit/mL (3 mL) insulin penIndications:Type 2 diabetes mellitus with hyperosmolarity without coma, with long-term current use of insulin ([facility]) INJECT 35 UNITS Q AM 5 pen 3 9 11/27/19 20 blood glucose diagnostic stripIndications:Type 2 diabetes mellitus with hyperosmolarity without coma, with long-term current use of insulin ([facility]) Check blood sugar tid 100 each 4 9 01/15/20 20 blood-glucose meter miscIndications:Type 2 diabetes mellitus with hyperosmolarity without coma, with long-term current use of insulin ([facility]) 1 Device 3 (three) times [...] coma, with long-term current use of insulin ([facility]) Take 1 tablet (20 mg total) by mouth daily As needed. 30 tablet 9 01/15/20 20 gabapentin (NEURONTIN) 300 mg capsuleIndications:Type 2 diabetes mellitus with hyperosmolarity without coma, with long-term current use of insulin ([facility]) TAKE 1 PO QD 30 capsule 3 9 11/26/19 20 glucagon (glucagon) 1 mg kitIndications:AML (acute myeloid leukemia) in remission ([facility]) USE DIRECTED AT SCHOOL AND HOME 4 11/28/19 20 HUMALOG KWIKPEN INSULIN 100 unit/mL insulin penIndications:type 2 diabetes mellitus INJECT 10 -16 UNITS BEFORE MEALS. 5 pen 3 9 11/27/19 20 metFORMIN XR (GLUCOPHAGE XR) 500 mg 24 hr tabletIndications:Type 2 diabetes mellitus with hyperosmolarity without coma, with long-term current use of insulin ([facility]) Take 2 tablets (1,000 mg total) by mouth 2 (two) times a day 120 tablet 3 9 11/28/19 20 montelukast (SINGULAIR) 10 mg tabletIndications:AML (acute myeloid leukemia) in remission (HCC),Pyzna-gqkgvw-qqcl disease (HCC) Take 1 tablet (10 mg total) by mouth nightly. 30 tablet 11 9 12/21/19 20 mycophenolate mofetil (CELLCEPT) 500 mg tabletIndications:AML (acute myeloid leukemia) in remission (HCC),Tplsl-njuxzl-wfcg disease (HCC) TAKE 2 TABLETS BY MOUTH [...] mg tabletIndications:AML (acute myeloid leukemia) in remission (HCC),Sdqhi-iqhhqr-ni st disease (HCC) Take 4 tablets (80 [...] been arranged? Yes Details of Transportation Helping Otriw-[phone], Frist [phone], tracking#[id number] What day is the transport expected? 08/25/19 [...] 08/24/19 0627 ? ? aluminum & magnesium aatjauuic-kpysfotdmck-fgkfmybdwmpdelf-lidocaine (MAGIC MOUTHWASH) suspension 1-1-1, 15 mL, swish [...] x3 s/p decitabine maintenance on the CALGB 06077 protocol. - Relapsed disease, status post an [...] 08/24/19 0627 ? ? aluminum & magnesium wgjemvwjb-vlbtuccaznu-mwrutvdfslpsgsu-lidocaine (MAGIC MOUTHWASH) suspension 1-1-1, 15 mL, swish [...] MD, 50Units at 08/24/192035 ??? influenza quadrivalent 0850-1684 (FLULAVAL,FLUARIX,FLUZONE) 60 mcg (15 mcg x 4)/0.5 [...] Rossi Shen MD, 20 mg at 08/24/19 8115 ??? sodium chloride (OCEAN) 0.65 % nasal [...] x3 s/p decitabine maintenance on the CALGB 13480 protocol. - Relapsed disease, status post an [...] at 08/24/19626 ? ? aluminum & magnesium izouucshw-lzykfeepnws-sjkgchkjwryahsx-lidocaine (MAGIC MOUTHWASH) suspension 1-1-1, 15 mL, swish [...] 20-50 Units, 2-5 mL, intra-catheter, PRN, Rossi Sehn MD ??? heparin 10 unit/mL flush 50 Units, 5 mL, intra-catheter, Q12H ROSA MARIA, Rossi Shen MD, 50Units at 08/24/19 0838 ??? influenza quadrivalent 5410-1939 (FLULAVAL,FLUARIX,FLUZONE) 60 mcg (15 mcg x 4)/0.5 [...] x3 s/p decitabine maintenance on the CALGB 77189 protocol. - Relapsed disease, status post an [...] at 08/24/19626 ? ? aluminum & magnesium fjycgansr-dwrpivcolrl-xijeecjzjvnnyap-lidocaine (MAGIC MOUTHWASH) suspension 1-1-1, 15 mL, swish [...] 50Units at 08/24/19 0838 ??? influenza quadrivalent 1103-7015 (FLULAVAL,FLUARIX,FLUZONE) 60 mcg (15 mcg x 4)/0.5 [...] mEq, 40 mEq, intravenous, Q4H PRN, Rossi Sehn MD ??? potassium chloride ER (KLOR-CON) extended [...] x3 s/p decitabine maintenance on the CALGB 96794 protocol. - Relapsed disease, status post an [...] 1031 Referral Data Referral Source Self referral (Hand Outside Cutter) Referral Reason Discharge Planning Patient Information Primary Caregiver Self Support System Spouse/Significant Other Support system contact info (name, phone, availablity) Lissy Kaiser/roommate-(Day)[phone]/yrmvv-[phone] Legal Information Have you reviewed your Advance Directive and is it valid for this stay? No Advance Directive Patient would like information;Information provided Prior Level of Functioning Durable Medical Equipment Oxygen;Other (Comment) (Nebulizer, home O2(2-3L) provided by [facility]) Living Arrangement House;Lives with someone Behavior Oriented Income Information Income Source Other (Comment) (Disabled) Referral To Financial Resources (Insurance verification) Potential Discharge Needs Discharge Potential To be determined Anticipated discharge level of care Return Home Dialysis No Psychiatric services No Communications Fiduciary Responsibility Patient/Designated decision maker was informed of [facility] fiduciary relationship as necessary Impression/Problem: 53 [...] at 08/23/19637 ? ? aluminum & magnesium zgtpmxyxu-nifiecsjxls-vpcfdlxyujiczjo-lidocaine (MAGIC MOUTHWASH) suspension 1-1-1, 15 mL, swish [...] 600 mg, 600 mg, oral, BID, Heath oJhn MD, 600 mg at 08/23/19926 ??? heparin [...] LFTs. Has neutrophilic leucocytosis with mild thrombocytopenia. SIZE STAMPER positive for rhino/entero virus. CBC: Recent Labs [...] x3 s/p decitabine maintenance on the CALGB 04868 protocol. - Relapsed disease, status post an [...] 40mg D/W Dr. Kofi Montoya MD Hospitalist [phone] * Katelyn Payton NP - 08/22/2019 11:23 AM CDT [facility] Patient is a 53 [...] consolidation x3. 2. Decitabine maintenance on the [facility] [address] protocol. 3. Relapsed disease, status post [facility]. 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 TRANSPLANT HISTORY: Status post an allogeneic transplant with busulfan and Cytoxan on the [facility] allogeneic study with hissister, 08/27 [...] file Gets together: Not on file Attends confucianism service: Not on file Active member of [...] x3. - Decitabine maintenance on the CALGB 10481 protocol. - Relapsed disease, status post an [...] 08/23/19 1928 ? ? aluminum & magnesium ownripjsn-rvlbbqqxkus-ltjzbjmobjwkoay-lidocaine (MAGIC MOUTHWASH) suspension 1-1-1, 15 mL, swish [...] x3 s/p decitabine maintenance on the CALGB 22094 protocol. - Relapsed disease, status post an allogeneic transplant with busulfan and Cytoxan on the [facility] allogeneic study with his sister, [...] x3. - Decitabine maintenance on the CALGB 19971 protocol. - Relapsed disease, status post an allogeneic transplant with busulfan and Cytoxan on the [facility] allogeneic study with his sister, [...] Bone mineral density was performed on a [employer] Discovery Densitometer. Machine Cross-calibration and Precision studies [...] by the International Society of Clinical Densitometry. [id number] Assessment/Plan No problem-specific Assessment & Plan notes [...] x3 s/p decitabine maintenance on the CALGB 07271 protocol. - Relapsed disease, status post an [...] 40mg Rossi Stein MD BMT Oncology Hospitalist [phone] documented in this encounter Consult Notes * [...] Carbohydrate Diet effective now Question Answer Comment ([facility]) Diet type Restricted Diabetic: Consistent Carbohydrate 08/23/19 [...] PM CDT Pt with AML admitted to [facility] to be seen by [facility] due to SOB. 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 Pt was discharged from OSH 2 days ago and was started on home oxygen. Labs, blood cultures X 2, [facility] swabs, and chest Xray done. Patient admitted to hospital. Report given to Bonnie CONNELL on 9799. Pt transferred to 9814 via wheelchair accompanied by mala RN. documented in this encounter Miscellaneous Notes * Plan of Care - Giovanni Hanna RN - 08/25/2019 2:57 PM CDT Referral received from direct care nurse for assistance with discharge transportation. Discharge transportation arranged with Larricardoa of [employer] @[phone] and Carmen of [employer] @ [phone] for tracking#[id number] after 1600 today. Will fax PCS to [employer] @ [phone] after completed. * Hospital Course - Mari [...] HiDAC consolidation x3??s/p decitabine maintenance on the [facility] 69442zeofqidl. He has relapsed disease,??status post an allogeneic [...] 08/24/2019 12:22 PM CDT Based on the [facility] approved criteria for respiratory failure (see [...] impression in detail Respiratory Failure References - [employer] Hospitalist Aug/Sep 2013 - Coding Clinics: 3rd Q 1987, p 7 and 2nd Q 1989, p.20 - https://www.cms.gov/zqjffdaf-ifx-jbzqrjddm/medicare-learning-network-mln/mlnprod ucts/downloads/hvvi-njvkmn-tbnzrvq-text-only.pdf Use of terms such as likely, suspected, [...] POC 169 70 - 199 mg/dL [facility] Blood specimen (specimen) 08/25/2019 11:47 AM CDT 08/25/2019 11:47 AM CDT us Josué Del Valle MD PhD LAB POCT ORDERABLES - DE VICE Final Result Performing Organization Address [facility] Co de Phone Number [address] [address] * (ABNORMAL) POCT glucose (08/25/2019 6:37 AM CDT) Glucose, POC 246(H) 70 - 199 mg/dL [facility] Blood specimen (specimen) 08/25/2019 6:37 AM CDT 08/25/2019 6:37 AM CDT us Josué Del Valle MD PhD LAB POCT ORDERABLES - DE VICE Final Result Performing Organization Address [facility] Co de Phone Number [address] [address] * (ABNORMAL) Manual Differential (08/25/2019 3:42 AM CDT) Differential Manual [facility] Cells Counted 114 [facility] Neutrophil abs 7.0(H) 1.7 - 6.5 K/cumm [facility] Imm gran abs 0.0 0.0 - 0.1 K/cumm [facility] Lymphocyte abs 3.4(H) 0.8 - 3.3 K/cumm [facility] Monocyte abs 0.8 0.2 - 0.8 K/cumm [facility] Neutrophil pct 62.3 % [facility] Comment: Interpretive Data Percent cell count reference ranges are not reported, since discordance with absolute values may lead to misinterpretation of CBC data. Current Interpretive Data was last revised on 2018. Lymphocyte pct 25.4 % [facility] Comment: Interpretive Data Percent cell count reference ranges are not reported, since discordance with absolute values may lead to misinterpretation of CBC data. Current Interpretive Data was last revised on 2018. Monocyte pct 7.0 % [facility] Comment: Interpretive Data Percent cell count reference ranges are not reported, since discordance with absolute values may lead to misinterpretation of CBC data. Current Interpretive Data was last revised on 2018. Variant lymph pct 5.3(H) 0.0 - 0.0 % [facility] RBC morphology Present(A) [facility] Anisocytosis Moderate(A) [facility] Poikilocytosis Slight(A) [facility] Macrocytes 8-15/HPF(A) [facility] Gaitan-Canova bodies Present(A) [facility] Platelet estimate Adequate [facility] Blood specimen (specimen) 08/25/2019 3:42 AM CDT 08/25/2019 3:54 AM CDT us Rossi Shen MD LAB BLOOD ORDERABLES Arun tamiko Result - Final [facility] [address] [place] [address] * (ABNORMAL) CBC without differential (08/25/2019 3:42 AM CDT) WBC 11.2(H) 3.8 - 9.9 K/cumm [facility] Hgb 13.1 13.0 - 17.5 g/dL [facility] Hct 39.5 38.9 - 50.3 % [facility] Plt 150 150 - 400 K/cumm [facility] MPV 11.6 9.1 - 12.3 fL [facility] RBC 3.80(L) 4.30 - 5.80 M/cumm [facility] MCV 103.9(H) 81.3 - 96.4 fL [facility] MCH 34.5(H) 27.1 - 33.3 pg [facility] MCHC 33.2 32.3 - 35.7 g/dL [facility] RDW CV 16.4(H) 11.1 - 14.9 % [facility] RDW SD 62.4(H) 35.7 - 48.1 fL [facility] NRBC abs 0.59(H) 0.00 - 0.01 K/cumm [facility] Blood specimen (specimen) 08/25/2019 3:42 AM CDT 08/25/2019 3:54 AM CDT Rossi Shen MD LAB BLOOD ORDERABLES Fin al Result Performing Organization Address [facility] Co de Phone Number [address] [address] * Phosphorus (08/25/2019 3:42 AM CDT) Phosphorus, pl 3.5 2.3 - 4.5 mg/dL [facility] Blood specimen (specimen) 08/25/2019 3:42 AM CDT 08/25/2019 3:54 AM CDT Rossi Shen MD LAB BLOOD ORDERABLES Fin al Result Performing Organization Address [facility] Co de Phone Number [address] [address] * Magnesium (08/25/2019 3:42 AM CDT) Magnesium 1.8 1.4 - 2.5 mg/dL [facility] Blood specimen (specimen) 08/25/2019 3:42 AM CDT 08/25/2019 3:54 AM CDT Rossi Shen MD LAB BLOOD ORDERABLES Fin al Result Performing Organization Address [facility] Co de Phone Number [address] [address] * (ABNORMAL) Basic metabolic panel (08/25/2019 3:42 AM CDT) Sodium 136 135 - 145 mmol/L [facility] Potassium, pl 5.0(H) 3.3 - 4.9 mmol/L [facility] Comment:Hemolyzed; (+++); po tassium value may be falsely elevated by as much as 0.6 - 1.0 mmol/L. Suggest redraw and reanalysis. Chloride 96(L) 97 - 110 mmol/L [facility] CO2 36(H) 22 - 32 mmol/L [facility] Anion gap 4 2 - 15 mmol/L [facility] BUN 35(H) 8 - 25 mg/dL [facility] Creatinine 0.90 0.80 - 1.30 mg/dL [facility] Glucose 228(H) 70 - 199 mg/dL [facility] Comment: Interpretive Data Fasting glucose [...] 2017. Calcium 9.2 8.5 - 10.3 mg/dL [facility] Blood specimen (specimen) 08/25/2019 3:42 AM CDT 08/25/2019 3:54 AM CDT Narrative [facility] - 08/25/2019 5:05 AM CDT Daily except Saturday and . Morning draw. us Rossi Shen MD LAB BLOOD ORDERABLES Fin al Result [facility] [address] [place] [address] * (ABNORMAL) POCT glucose (08/24/2019 10:04 PM CDT) Glucose, POC 220(H) 70 - 199 mg/dL [facility] Blood specimen (specimen) 08/24/2019 10:04 PM CDT 08/24/2019 10:04 PM CDT Josué Del Valle MD PhD LAB POCT ORDERABLES - DE VICE Final Result Performing Organization Address [facility] Phone Number [address] [address] * (ABNORMAL) POCT glucose (08/24/2019 7:38 PM CDT) Glucose, POC 373(H) 70 - 199 mg/dL [facility] Blood specimen (specimen) 08/24/2019 7:38 PM CDT 08/24/2019 7:38 PM CDT Josué Del Valle MD PhD LAB POCT ORDERABLES - DE VICE Final Result Performing Organization Address [facility] Phone Number [address] [address] * (ABNORMAL) POCT glucose (08/24/2019 6:28 PM CDT) Glucose, POC 396(H) 70 - 199 mg/dL [facility] Blood specimen (specimen) 08/24/2019 6:28 PM CDT 08/24/2019 6:28 PM CDT Josué Del Valle MD PhD LAB POCT ORDERABLES - DE VICE Final Result Performing Organization Address [facility] Phone Number [address] [address] * (ABNORMAL) POCT glucose (08/24/2019 5:22 PM CDT) Glucose, POC 341(H) 70 - 199 mg/dL [facility] Blood specimen (specimen) 08/24/2019 5:22 PM CDT 08/24/2019 5:22 PM CDT Josué Del Valle MD PhD LAB POCT ORDERABLES - DE VICE Final Result Performing Organization Address [facility] Phone Number [address] [address] * (ABNORMAL) POCT glucose (08/24/2019 11:38 AM CDT) Glucose, POC 294(H) 70 - 199 mg/dL [facility] Blood specimen (specimen) 08/24/2019 11:38 AM CDT 08/24/2019 11:38 AM CDT Josué Del Valle MD PhD LAB POCT ORDERABLES - DE VICE Final Result Performing Organization Address [facility] Phone Number [address] [address] * (ABNORMAL) POCT glucose (08/24/2019 7:22 AM CDT) [facility] Glucose, POC 200(H) 70 - 199 mg/dL [facility] Blood specimen (specimen) 08/24/2019 7:22 AM CDT 08/24/2019 7:22 AM CDT Josué Del Valle MD PhD LAB POCT ORDERABLES - DE VICE Final Result Performing Organization Address [facility] Phone Number [address] [address] * Cytomegalovirus (CMV) DNA PCR, quantitative Blood (08/24/2019 6:28 AM CDT) [facility] CMV DNA Not Detected [facility] Comment: Interpretive Data: The quantifiable range of this assay is 137 IUnits/mL to 9,100,000 IUnits/mL (2.14 log IUnits/mL to 6.96 log IUnits/mL). Testing was performed by the [employer] Ampli[employer]/MICHEL TaqMan CMV Test ([employer] Testing performed at [facility] Current interpretive data was last revised on 17. Blood specimen (specimen) 08/24/2019 6:28 AM CDT 08/24/2019 9:37 AM CDT Carlos Eduardo Bergman MD LAB MICROBIOLOGY - GENERAL ORDERABLES Final Result Performing Organization Address [facility] Co de Phone Number [address] [address] * Phosphorus (08/24/2019 4:45 AM CDT) Phosphorus, pl 3.3 2.3 - 4.5 mg/dL [facility] Blood specimen (specimen) 08/24/2019 4:45 AM CDT 08/24/2019 5:25 AM CDT us Josué Del Valle MD PhD LAB BLOOD ORDERABLES Fin al Result Performing Organization Address [facility] de Phone Number [address] [address] * Magnesium (08/24/2019 4:45 AM CDT) Magnesium 1.9 1.4 - 2.5 mg/dL [facility] Blood specimen (specimen) 08/24/2019 4:45 AM CDT 08/24/2019 5:25 AM CDT Josué Del Valle MD PhD LAB BLOOD ORDERABLES Fin al Result Performing Organization Address [facility] de Phone Number [address] [address] * (ABNORMAL) Manual Differential (08/24/2019 4:45 AM CDT) Differential Manual [facility] Cells Counted 115 [facility] Neutrophil abs 9.4(H) 1.7 - 6.5 K/cumm [facility] Imm gran abs 0.2(H) 0.0 - 0.1 K/cumm [facility] Lymphocyte abs 3.4(H) 0.8 - 3.3 K/cumm [facility] Monocyte abs 0.8 0.2 - 0.8 K/cumm [facility] Neutrophil pct 67.8 % [facility] Comment: Interpretive Data Percent cell count reference ranges are not reported, since discordance with absolute values may lead to misinterpretation of CBC data. Current Interpretive Data was last revised on 2018. Lymphocyte pct 19.1 % [facility] Comment: Interpretive Data Percent cell count reference ranges are not reported, since discordance with absolute values may lead to misinterpretation of CBC data. Current Interpretive Data was last revised on 2018. Monocyte pct 6.1 % [facility] Comment: Interpretive Data Percent cell count reference ranges are not reported, since discordance with absolute values may lead to misinterpretation of CBC data. Current Interpretive Data was last revised on 2018. Myelocyte pct 0.9 % [facility] Promyelocyte pct 0.9(H) 0.0 - 0.0 % [facility] [facility] Variant lymph pct 5.2(H) 0.0 - 0.0 % [facility] RBC morphology Present(A) [facility] Anisocytosis Moderate(A ) [facility] Macrocytes 8-15/HPF(A ) [facility] Platelet estimate Decreased( A) [facility] Blood specimen (specimen) 08/24/2019 4:45 AM CDT 08/24/2019 5:10 AM CDT us Rossi Shen MD LAB BLOOD ORDERABLES Arun tamiko Result - Final [facility]ULEMA DENT [address] [place] [address] * (ABNORMAL) CBC without differential (08/24/2019 4:45 AM CDT) WBC 13.9(H) 3.8 - 9.9 K/cumm [facility] Hgb 12.5(L) 13.0 - 17.5 g/dL [facility] Hct 37.5(L) 38.9 - 50.3 % [facility] Plt 137(L) 150 - 400 K/cumm [facility] MPV 10.9 9.1 - 12.3 fL [facility] RBC 3.56(L) 4.30 - 5.80 M/cumm [facility] MCV 105.3(H) 81.3 - 96.4 fL [facility] MCH 35.1(H) 27.1 - 33.3 pg [facility] MCHC 33.3 32.3 - 35.7 g/dL [facility] RDW CV 16.4(H) 11.1 - 14.9 % [facility] RDW SD 63.6(H) 35.7 - 48.1 fL [facility] NRBC abs 1.19(H) 0.00 - 0.01 K/cumm [facility] Blood specimen (specimen) 08/24/2019 4:45 AM CDT 08/24/2019 5:10 AM CDT us Rossi Shen MD LAB BLOOD ORDERABLES Fin al Result Performing Organization Address City/State/[facility] Co de Phone Number [facility] [address] [place] [address] * Protime-INR (08/24/2019 4:45 AM CDT) PT 10.5 8.6 - 13.0 sec [facility] INR 0.97 0.80 - 1.20 [facility] Comment: Interpretive Data Inpatient therapeutic ranges* Atrial fibrillation ?2.0-3.0 INR Venous thrombo-embolism ?2.0-3.0 INR Bioprosthetic heart valve ?* Mechanical heart valve, bileaflet or tilting disk,aortic position ? 2.0-3.0 INR All other,or bileaflet or tilting disk, in mitral position ? 2.5-3.5 INR *See the pharmacy resource directory (PHRED) for an updated copy of the Tool Book at [email or web address] Current Interpretive Data was last revised 2012. Blood specimen (specimen) 08/24/2019 4:45 AM CDT 08/24/2019 5:01 AM CDT Rossi Shen MD LAB BLOOD ORDERABLES Fin al Result Performing Organization Address [facility] de Phone Number [address] [address] * (ABNORMAL) aPTT (08/24/2019 4:45 AM CDT) aPTT 24.9(L) 25.0 - 37.0 sec [facility] Comment: Interpretive Data Therapeutic heparin range:60.0 - 94.0 sec based on correlation with therapeutic heparin activity range of 0.3 -0.7 Units/mL. Current interpretive data was last revised on 2011. Blood specimen (specimen) 08/24/2019 4:45 AM CDT 08/24/2019 5:01 AM CDT Rossi Shen MD LAB BLOOD ORDERABLES Fin al Result Performing Organization Address [facility] de Phone Number [address] [address] * (ABNORMAL) Lactate dehydrogenase (LD) (08/24/2019 4:45 AM CDT) Lactate dehydrogenase (LDH) 718(H) 100 - 250 Units/L [facility] Comment:Hemolyzed; result ma y be falsely elevated. Blood specimen (specimen) 08/24/2019 4:45 AM CDT 08/24/2019 5:25 AM CDT Narrative [facility] - 08/24/2019 6:21 AM CDT Saturday and only. Morning draw. Rossi Shen MD LAB BLOOD ORDERABLES Fin al Result Performing Organization Address [facility] de Phone Number [address] [address] * Uric acid (08/24/2019 4:45 AM CDT) [facility] Uric acid 4.9 3.0 - 8.0 mg/dL [facility] Blood specimen (specimen) 08/24/2019 4:45 AM CDT 08/24/2019 5:25 AM CDT [facility] - 08/24/2019 6:21 AM CDT Saturday and only. Morning draw. . Rossi Shen MD LAB BLOOD ORDERABLES Fin al Result Performing Organization Address [facility] de Phone Number [address] [address] * (ABNORMAL) Comprehensive metabolic panel (08/24/2019 4:45 AM CDT) [facility] Sodium 138 135 - 145 mmol/L [facility] Potassium, pl 4.6 3.3 - 4.9 mmol/L [facility] Comment:Hemolyzed; (++); pot assium value may be falsely elevated by as much as 0.3 - 0.5 mmol/L. Suggest redraw and reanalysis. Chloride 99 97 - 110 mmol/L [facility] CO2 31 22 - 32 mmol/L [facility] Anion gap 8 2 - 15 mmol/L [facility] BUN 32(H) 8 - 25 mg/dL [facility] Creatinine 0.68(L) 0.80 - 1.30 mg/dL [facility] Glucose 192 70 - 199 mg/dL [facility] Comment: Interpretive Data Fasting glucose [...] Calcium 9.0 8.5 - 10.3 mg/dL [facility] Bilirubin, total 0.4 0.1 - 1.2 mg/dL [facility] Protein, pl 5.9(L) 6.5 - 8.5 g/dL [facility] Albumin 3.4(L) 3.5 - 5.0 g/dL [facility] Alk phos 118 40 - 130 Units/L [facility] ALT 141(H) 7 - 55 Units/L [facility] AST 57(H) 10 - 50 Units/L [facility] Comment:Hemolyzed; result ma y be falsely elevated. Blood specimen (specimen) 08/24/2019 4:45 AM CDT 08/24/2019 5:25 AM CDT Narrative [facility] - 08/24/2019 6:21 AM CDT Saturday and only. Morning draw. Rossi Shen MD LAB BLOOD ORDERABLES Fin al Result [facility] [address] [place] [address] * Type and screen (08/24/2019 4:45 AM CDT) Ursula, indirect Negative [facility] ABO Rh A Positive [facility] Blood specimen (specimen) 08/24/2019 4:45 AM CDT 08/24/2019 5:02 AM CDT Narrative [facility] - 08/24/2019 6:21 AM CDT Has the patient had Daratumumab (Darzalex) in the past 6 months?->Unknown Rossi Shen MD LAB BLOOD BANK TEST ORDE RABLES Final Result Performing Organization Address [facility] de Phone Number [facility] [address] [place] [address] * (ABNORMAL) POCT glucose (08/23/2019 9:59 PM CDT) Glucose, POC 261(H) 70 - 199 mg/dL [facility] Blood specimen (specimen) 08/23/2019 9:59 PM CDT 08/23/2019 9:59 PM CDT Josué Del Valle MD PhD LAB POCT ORDERABLES - DE VICE Final Result Performing Organization Address [facility] de Phone Number [address] [address] * (ABNORMAL) POCT glucose (08/23/2019 4:29 PM CDT) Glucose, POC 264(H) 70 - 199 mg/dL [facility] Blood specimen (specimen) 08/23/2019 4:29 PM CDT 08/23/2019 4:29 PM CDT Josué Del Valle MD PhD LAB POCT ORDERABLES - DE VICE Final Result Performing Organization Address [facility] Phone Number [facility] [address] [place] [address] * Tacrolimus level, random (08/23/2019 4:04 PM CDT) Tacrolimus, random <1.0 ng/mL [facility] Comment: Undetectable. ??Please verify that the correct immunosuppressant test was requested. Interpretive Data Testing performed by liquid chromatography-tandem mass spectrometry. ??Therapeutic concentrations vary depending on type of transplanted organ and time elapsed since transplant. ??Typical trough concentrations range from 5-15 ng/mL. ??This test was developed and its performance characteristics determined by the [facility] consistent with CLIA requirements. ??This test has not been cleared or approved by the [place] Food and Drug administration. ??Current interpretive data last reviewed 2019. Blood specimen (specimen) 08/23/2019 4:04 PM CDT 08/23/2019 4:19 PM CDT Renaldo Montoya MD LAB BLOOD ORDERABLES Final Re sult Performing Organization Address [facility] Co de Phone Number [address] [address] * POCT glucose (08/23/2019 12:42 PM CDT) Glucose, POC 173 70 - 199 mg/dL [facility] Blood specimen (specimen) 08/23/2019 12:42 PM CDT 08/23/2019 12:42 PM CDT Josué Del Valle MD PhD LAB POCT ORDERABLES - DE VICE Final Result Performing Organization Address [facility] de Phone Number [address] [address] * (ABNORMAL) POCT glucose (08/23/2019 7:56 AM CDT) Glucose, POC 220(H) 70 - 199 mg/dL [facility] Glucose comment 1 RN Notified [facility] Blood specimen (specimen) 08/23/2019 7:56 AM CDT 08/23/2019 7:56 AM CDT Josué Del Valle MD PhD LAB POCT ORDERABLES - DE VICE Final Result Performing Organization Address [facility] de Phone Number [address] [address] * (ABNORMAL) POCT glucose (08/23/2019 6:14 AM CDT) Glucose, POC 436(H) 70 - 199 mg/dL [facility] Blood specimen (specimen) 08/23/2019 6:14 AM CDT 08/23/2019 6:14 AM CDT us Josué Del Valle MD PhD LAB POCT ORDERABLES - DE VICE Final Result Performing Organization Address [facility] Co de Phone Number ZULEMA DENT[address] [address] * (ABNORMAL) POCT glucose (08/23/2019 5:01 AM CDT) Glucose, POC 441(H) 70 - 199 mg/dL [facility] Blood specimen (specimen) 08/23/2019 5:01 AM CDT 08/23/2019 5:01 AM CDT us Josué Del Valle MD PhD LAB POCT ORDERABLES - DE VICE Final Result Performing Organization Address [facility] de Phone Number [facility] [address] [address] * Critical Result Callback Chemistry (08/23/2019 4:13 AM CDT) Date Notified [id number] [facility] Time Notified 456 [facility] TestName Glucose ZULEMA [facility] Called/Read Back Rebecca P[facility] Credentials RN ZULEMA [facility] Called By bola [facility] Blood specimen (specimen) 08/23/2019 4:13 AM CDT 08/23/2019 4:23 AM CDT us Rossi Shen MD LAB BLOOD ORDERABLES Fin al Result Performing Organization Address [facility] Co de Phone Number [facility] [address] [place] [address] * (ABNORMAL) Manual Differential (08/23/2019 4:13 AM CDT) Differential Manual [facility] Cells Counted 114 ZULEMA [facility] Neutrophil abs 13.4(H) 1.7 - 6.5 K/cumm [facility] Imm gran abs 0.0 0.0 - 0.1 K/cumm [facility] Lymphocyte abs 1.1 0.8 - 3.3 K/cumm [facility] Monocyte abs 1.4(H) 0.2 - 0.8 K/cumm [facility] Neutrophil pct 84.2 % [facility] Comment: Interpretive Data Percent cell count reference ranges are not reported, since discordance with absolute values may lead to misinterpretation of CBC data. Current Interpretive Data was last revised on 2018. Lymphocyte pct 6.1 % [facility] Comment: Interpretive Data Percent cell count reference ranges are not reported, since discordance with absolute values may lead to misinterpretation of CBC data. Current Interpretive Data was last revised on 2018. Monocyte pct 8.8 % [facility] Comment: Interpretive Data Percent cell count reference ranges are not reported, since discordance with absolute values may lead to misinterpretation of CBC data. Current Interpretive Data was last revised on 2018. Variant lymph pct 0.9(H) 0.0 - 0.0 % [facility] RBC morphology Present(A) [facility] Anisocytosis Moderate(A ) [facility] Poikilocytosis Slight(A) [facility] Macrocytes 8-15/HPF(A ) [facility] Schistocytes 1-2/HPF(A) [facility] Target cells 3-7/HPF(A) [facility] Platelet estimate Decreased( A) [facility] Blood specimen (specimen) 08/23/2019 4:13 AM CDT 08/23/2019 4:22 AM CDT us Rossi Shen MD LAB BLOOD ORDERABLES Arun tamiko Result - Final [facility] [address] [place], [place] [id number] * (ABNORMAL) CBC without differential (08/23/2019 4:13 AM CDT) WBC 15.9(H) 3.8 - 9.9 K/cumm [facility] Hgb 12.3(L) 13.0 - 17.5 g/dL [facility] Hct 36.7(L) 38.9 - 50.3 % [facility] Plt 145(L) 150 - 400 K/cumm [facility] MPV 11.7 9.1 - 12.3 fL [facility] RBC 3.46(L) 4.30 - 5.80 M/cumm [facility] MCV 106.1(H) 81.3 - 96.4 fL [facility] MCH 35.5(H) 27.1 - 33.3 pg [facility] MCHC 33.5 32.3 - 35.7 g/dL [facility] RDW CV 16.5(H) 11.1 - 14.9 % [facility] RDW SD 63.3(H) 35.7 - 48.1 fL [facility] NRBC abs 1.56(H) 0.00 - 0.01 K/cumm [facility] Blood specimen (specimen) 08/23/2019 4:13 AM CDT 08/23/2019 4:22 AM CDT Rossi Shen MD LAB BLOOD ORDERABLES Fin al Result Performing Organization Address [facility] Co de Phone Number [address] [address] * Phosphorus (08/23/2019 4:13 AM CDT) Phosphorus, pl 3.4 2.3 - 4.5 mg/dL [facility] Blood specimen (specimen) 08/23/2019 4:13 AM CDT 08/23/2019 4:23 AM CDT Rossi Shen MD LAB BLOOD ORDERABLES Fin al Result [address] [address] * Magnesium (08/23/2019 4:13 AM CDT) Magnesium 1.6 1.4 - 2.5 mg/dL [facility] Blood specimen (specimen) 08/23/2019 4:13 AM CDT 08/23/2019 4:23 AM CDT us Rossi Shen MD LAB BLOOD ORDERABLES Fin al Result ZULEMA [facility] [address] [place] [address] * (ABNORMAL) Basic metabolic panel (08/23/2019 4:13 AM CDT) Sodium 133(L) 135 - 145 mmol/L [facility] Potassium, pl 5.0(H) 3.3 - 4.9 mmol/L [facility] Comment:Hemolyzed; (+++); po tassium value may be falsely elevated by as much as 0.6 - 1.0 mmol/L. Suggest redraw and reanalysis. Chloride 94(L) 97 - 110 mmol/L [facility] CO2 31 22 - 32 mmol/L [facility] Anion gap 8 2 - 15 mmol/L [facility] BUN 29(H) 8 - 25 mg/dL [facility] Creatinine 0.64(L) 0.80 - 1.30 mg/dL [facility] Glucose 525(C) 70 - 199 mg/dL [facility] Comment: Interpretive Data Fasting glucose [...] 2017. Calcium 8.8 8.5 - 10.3 mg/dL [facility] Blood specimen (specimen) 08/23/2019 4:13 AM CDT 08/23/2019 4:23 AM CDT Narrative [facility] - 08/23/2019 4:52 AM CDT Daily except Saturday and Thursday. Morning draw. us Rossi Shen MD LAB BLOOD ORDERABLES Fin al Result Performing Organization Address [facility] Co de Phone Number [address] [address] * (ABNORMAL) POCT glucose (08/22/2019 10:18 PM CDT) Glucose, POC 306(H) 70 - 199 mg/dL [facility] Blood specimen (specimen) 08/22/2019 10:18 PM CDT 08/22/2019 10:18 PM CDT us Josué Del Valle MD PhD LAB POCT ORDERABLES - DE VICE Final Result Performing Organization Address [facility] de Phone Number [address] [address] * (ABNORMAL) POCT glucose (08/22/2019 7:49 PM CDT) Glucose, POC 284(H) 70 - 199 mg/dL [facility] Blood specimen (specimen) 08/22/2019 7:49 PM CDT 08/22/2019 7:49 PM CDT us Josué Del Valle MD PhD LAB POCT ORDERABLES - DE VICE Final Result Performing Organization Address [facility] de Phone Number [address] [address] * Potassium, whole blood (08/22/2019 6:07 PM CDT) Potassium, bld 4.2 3.3 - 4.9 mmol/L [facility] Blood specimen (specimen) 08/22/2019 6:07 PM CDT 08/22/2019 6:20 PM CDT Rossi Shen MD LAB BLOOD ORDERABLES Fin al Result Performing Organization Address 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 Co de Phone Number [address] [address] * Type and screen (08/22/2019 4:19 PM CDT) Pathologist [facility] Ursula, indirect Negative [facility] ABO Rh A Positive [facility] Blood specimen (specimen) 08/22/2019 4:19 PM CDT 08/22/2019 4:35 PM CDT Narrative [facility] - 08/22/2019 5:20 PM CDT Has the patient had Daratumumab (Darzalex) in the past 6 months?->Unknown Rossi Shen MD LAB BLOOD BANK TEST ORDE RABLES Final Result Performing Organization Address [facility]/ZIP Co de Phone Number [address] [address] * (ABNORMAL) aPTT (08/22/2019 4:19 PM CDT) Pathologist [facility] aPTT 24.6(L) 25.0 - 37.0 sec [facility] Comment: Interpretive Data Therapeutic heparin range:60.0 - 94.0 sec based on correlation with therapeutic heparin activity range of 0.3 -0.7 Units/mL. Current interpretive data was last revised on 2011. Blood specimen (specimen) 08/22/2019 4:19 PM CDT 08/22/2019 4:28 PM CDT Rossi Shen MD LAB BLOOD ORDERABLES Fin al Result Performing Organization Address [facility] de Phone Number [facility] [address] [place] [address] * Protime-INR (08/22/2019 4:19 PM CDT) Pathologist [facility] PT 8.8 8.6 - 13.0 sec [facility] INR 0.82 0.80 - 1.20 [facility] Comment: Interpretive Data Inpatient therapeutic ranges* Atrial fibrillation ?2.0-3.0 INR Venous thrombo-embolism ?2.0-3.0 INR Bioprosthetic heart valve ?* Mechanical heart valve, bileaflet or tilting disk,aortic position ? 2.0-3.0 INR All other,or bileaflet or tilting disk, in mitral position ? 2.5-3.5 INR *See the pharmacy resource directory (PHRED) for an updated copy of the Tool Book at [email or web address] Current Interpretive Data was last revised 2012. Blood specimen (specimen) 08/22/2019 4:19 PM CDT 08/22/2019 4:28 PM CDT Result [facility] [place]i Shen MD LAB BLOOD ORDERABLES Fin al Result Performing Organization Address [facility] de Phone Number [facility] [address] [place] [address] * Uric acid (08/22/2019 4:19 PM CDT) Uric acid 4.0 3.0 - 8.0 mg/dL [facility] Blood specimen (specimen) 08/22/2019 4:19 PM CDT 08/22/2019 4:37 PM CDT Rossi Shen MD LAB BLOOD ORDERABLES Fin al Result Performing Organization Address [facility] Co de Phone Number [address] [address] * Phosphorus (08/22/2019 4:19 PM CDT) Pathologist [facility] Phosphorus, pl 3.5 2.3 - 4.5 mg/dL [facility] Blood specimen (specimen) 08/22/2019 4:19 PM CDT 08/22/2019 4:37 PM CDT Rossi Shen MD LAB BLOOD ORDERABLES Fin al Result Performing Organization Address [facility] de Phone Number [address] [address] * Magnesium (08/22/2019 4:19 PM CDT) [facility] Magnesium 1.8 1.4 - 2.5 mg/dL [facility] Blood specimen (specimen) 08/22/2019 4:19 PM CDT 08/22/2019 4:37 PM CDT Rossi Shen MD LAB BLOOD ORDERABLES Fin al Result Performing Organization Address [facility] de Phone Number [address] [address] * (ABNORMAL) Comprehensive metabolic panel (08/22/2019 4:19 PM CDT) Pathologist [facility] Sodium 134(L) 135 - 145 mmol/L [facility] Potassium, pl 5.9(H) 3.3 - 4.9 mmol/L [facility] Comment:Hemolyzed; (++++); p otassium value may be falsely elevated by as much as 1.1 - 1.6 mmol/L. Suggest redraw and reanalysis. Chloride 97 97 - 110 mmol/L [facility] CO2 31 22 - 32 mmol/L [facility] Anion gap 6 2 - 15 mmol/L [facility] BUN 30(H) 8 - 25 mg/dL [facility] Creatinine 0.61(L) 0.80 - 1.30 mg/dL [facility] Glucose 441(H) 70 - 199 mg/dL [facility] Comment: Interpretive Data Fasting glucose [...] Calcium 9.1 8.5 - 10.3 mg/dL [facility] Bilirubin, total 0.4 0.1 - 1.2 mg/dL [facility] Protein, pl 6.4(L) 6.5 - 8.5 g/dL [facility] Albumin 3.5 3.5 - 5.0 g/dL [facility] Alk phos 137(H) 40 - 130 Units/L [facility] Comment:Hemolyzed; result ma y be falsely decreased. ALT 197(H) 7 - 55 Units/L [facility] AST 84(H) 10 - 50 Units/L [facility] Comment:Hemolyzed; result ma y be falsely elevated. Blood specimen (specimen) 08/22/2019 4:19 PM CDT 08/22/2019 4:37 PM CDT us Rossi Shen MD LAB BLOOD ORDERABLES Fin al Result [facility] [address] [place] [address] * XR Chest Pa Lateral 2 Views [...] signed by: Azeem Plaza M.D. Katelyn Payton [facility] XR PROCEDURES Final R esult * Blood culture Blood Hand, left (08/22/2019 11:40 AM CDT) Report Final Report: No [facility] Blood specimen (specimen) (Hand, left) 08/22/2019 11:40 AM CDT 08/22/2019 12:36 PM CDT Narrative [facility] - 08/27/2019 4:01 PM CDT 1. Blood [...] organism identification may be performed using the [employer] Gram-Positive Blood Culture Assay. This assay detects microbial DNA in positive blood culture broth via hybridization of target DNA to capture oligonucleotides on a microarray. This assay has been cleared by the [place] Food and Drug Administration and its performance characteristics have been verified by the [facility]. 5. For questions about this culture, contact the Microbiology Laboratory at [phone]. Interpretive data was last revised on 2018. Katelyn Payton NP LAB MICROBIOLOGY - GENERA L ORDERABLES Final Result [facility] [address] [place] [address] * (ABNORMAL) Differential, auto (08/22/2019 11:39 AM CDT) Neutrophil abs 15.8(H) 1.7 - 6.5 K/cumm [facility] Imm gran abs 0.6(H) 0.0 - 0.1 K/cumm [facility] Lymphocyte abs 0.6(L) 0.8 - 3.3 K/cumm [facility] Monocyte abs 1.0(H) 0.2 - 0.8 K/cumm [facility] Eosinophil abs 0.0 0.0 - 0.5 K/cumm [facility] Basophil abs 0.0 0.0 - 0.1 K/cumm [facility] Neutrophil pct 87.9 % [facility] Comment: Interpretive Data Percent cell count reference ranges are not reported, since discordance with absolute values may lead to misinterpretation of CBC data. Current Interpretive Data was last revised on 2018. Imm gran pct 3.2 % [facility] Comment: Interpretive Data Percent cell count reference ranges are not reported, since discordance with absolute values may lead to misinterpretation of CBC data. Current Interpretive Data was last revised on 2018. Lymphocyte pct 3.3 % [facility] Comment: Interpretive Data Percent cell count reference ranges are not reported, since discordance with absolute values may lead to misinterpretation of CBC data. Current Interpretive Data was last revised on 2018. Monocyte pct 5.4 % [facility] Comment: Interpretive Data Percent cell count reference ranges are not reported, since discordance with absolute values may lead to misinterpretation of CBC data. Current Interpretive Data was last revised on 2018. Eosinophil pct 0.0 % [facility] Comment: Interpretive Data Percent cell count reference ranges are not reported, since discordance with absolute values may lead to misinterpretation of CBC data. Current Interpretive Data was last revised on 2018. Basophil pct 0.2 % [facility] Comment: Interpretive Data Percent cell count reference ranges are not reported, since discordance with absolute values may lead to misinterpretation of CBC data. Current Interpretive Data was last revised on 2018. Blood specimen (specimen) 08/22/2019 11:39 AM CDT 08/22/2019 12:19 PM CDT Katelyn Payton [facility] LAB BLOOD ORDERABLES Pilar l Result [facility] [address] [place] [address] * Blood culture Blood Peripheral (08/22/2019 11:39 [...] organism identification may be performed using the [employer] Gram-Positive Blood Culture Assay. This assay detects microbial DNA in positive blood culture broth via hybridization of target DNA to capture oligonucleotides on a microarray. This assay has been cleared by the [place] Food and Drug Administration and its performance characteristics have been verified by the [facility]. 5. For questions about this culture, contact the Microbiology Laboratory at [phone]. Interpretive data was last revised on 2018. Katelyn Payton NP LAB MICROBIOLOGY - GENERA L ORDERABLES Final Result [facility] [address] [place] [address] * Influenza A/B and RSV PCR Nasopharyngeal (08/22/2019 11:39 AM CDT) Pathologist [facility] Influenza A RNA Not Detected Not Detected [facility] Influenza B RNA Not Detected Not Detected [facility] RSV RNA Not Detected Not Detected [facility] Comment: Interpretive Data Testing performed by [facility] ([phone]). This test is performed using the [employer] Xpert Flu/RSV Assay. ??This is a multiplex, real-time reverse transcriptase PCR assay that detects influenza A, influenza B,and respiratory syncytial virus RNA. ??This assay has been cleared by the [place] Food and Drug Administration, and its performance characteristics have been verified by the [facility]. Interpretive Data last revised 2019 Nasopharyngeal 08/22/2019 11 :39 AM CDT 08/22/2019 12:17 PM CDT Katelyn Payton [facility] LAB MICROBIOLOGY - GENERA L ORDERABLES Final Result [facility] [address] [place] [address] * (ABNORMAL) Respiratory pathogen PCR Nasopharyngeal (08/22/2019 11:39 AM CDT) Adenovirus DNA Not Detected Not Detected [facility] Coronavirus 229E RNA Not Detected Not Detected [facility] Coronavirus HKU1 RNA Not Detected Not Detected [facility] Coronavirus NL63 RNA Not Detected Not Detected [facility] Coronavirus OC43 RNA Not Detected Not Detected [facility] Metapneumovirus RNA Not Detected Not Detected [facility] Rhinovirus/Enterov irus RNA Detected(A) Not Detected [facility] Influenza A RNA Not Detected Not Detected [facility] Influenza B RNA Not Detected Not Detected [facility] Parainfluenza 1 RNA Not Detected Not Detected [facility] Parainfluenza 2 RNA Not Detected Not Detected [facility] Parainfluenza 3 RNA Not Detected Not Detected [facility] Parainfluenza 4 RNA Not Detected Not Detected [facility] RSV RNA Not Detected Not Detected [facility] B. pertussis DNA Not Detected Not Detected [facility] C. pneumoniae DNA Not Detected Not Detected [facility] M. pneumoniae DNA Not Detected Not Detected [facility] B. parapertussis DNA Not Detected Not Detected [facility] Comment: The [employer] FilmArray Respiratory Panel (RP2) assay is a [...] FilmArray RP2 assay is FDA cleared for [facility] swabs. ??Additional sample types have been validated according to CLIA regulations. The performance characteristics of this assay have been determined by [facility] Infectious Disease Laboratory. Current interpretive data was last revised on 2018. Nasopharyngeal 08/22/2019 11 :39 AM CDT 08/22/2019 12:58 PM CDT Katelyn Payton [facility] LAB MICROBIOLOGY - GENERA L ORDERABLES Final Result [facility] [address] [place], [place] [id number] * Phosphorus (08/22/2019 11:39 AM CDT) [facility] Phosphorus, pl 3.7 2.3 - 4.5 mg/dL [facility] Blood specimen (specimen) (Blood, Venous) 08/22/2019 11:39 AM CDT 08/22/2019 12:19 PM CDT Katelyn Payton [facility] LAB BLOOD ORDERABLES Pilar l Result Performing Organization Address City/[facility]/ZIP Co de Phone Number [facility] [address] [place] [address] * Magnesium (08/22/2019 11:39 AM CDT) Pathologist [facility] Magnesium 1.9 1.4 - 2.5 mg/dL [facility] Blood specimen (specimen) (Blood, Venous) 08/22/2019 11:39 AM CDT 08/22/2019 12:19 PM CDT Katelynleo Payton [facility] LAB BLOOD ORDERABLES Pilar l Result Performing Organization Address [facility] de Phone Number [facility] [address] [place] [address] * (ABNORMAL) Comprehensive metabolic panel (08/22/2019 11:39 AM CDT) [facility] Sodium 140 135 - 145 mmol/L [facility] Potassium, pl 4.7 3.3 - 4.9 mmol/L [facility] Comment:Hemolyzed; (+++); po tassium value may be falsely elevated by as much as 0.6 - 1.0 mmol/L. Suggest redraw and reanalysis. Chloride 100 97 - 110 mmol/L [facility] CO2 32 22 - 32 mmol/L [facility] Anion gap 8 2 - 15 mmol/L [facility] BUN 33(H) 8 - 25 mg/dL [facility] Creatinine 0.70(L) 0.80 - 1.30 mg/dL [facility] Glucose 254(H) 70 - 199 mg/dL [facility] Comment: Interpretive Data Fasting glucose [...] 2017. Calcium 9.6 8.5 - 10.3 mg/dL [facility] Bilirubin, total 0.3 0.1 - 1.2 mg/dL [facility] Protein, pl 6.2(L) 6.5 - 8.5 g/dL [facility] Albumin 3.5 3.5 - 5.0 g/dL [facility] Alk phos 143(H) 40 - 130 Units/L [facility] ALT 202(H) 7 - 55 Units/L [facility] AST 82(H) 10 - 50 Units/L [facility] Comment:Hemolyzed; result ma y be falsely elevated. Blood specimen (specimen) 08/22/2019 11:39 AM CDT 08/22/2019 12:19 PM CDT Katelyn Payton [facility] LAB BLOOD ORDERABLES Pilar armas Result [facility] [address] [place], [place] [id number] * (ABNORMAL) CBC with auto differential (08/22/2019 11:39 AM CDT) WBC 18.0(H) 3.8 - 9.9 K/cumm [facility] Hgb 12.1(L) 13.0 - 17.5 g/dL [facility] Hct 36.7(L) 38.9 - 50.3 % [facility] Plt 151 150 - 400 K/cumm [facility] MPV 11.2 9.1 - 12.3 fL [facility] RBC 3.47(L) 4.30 - 5.80 M/cumm [facility] MCV 105.8(H) 81.3 - 96.4 fL [facility] MCH 34.9(H) 27.1 - 33.3 pg [facility] MCHC 33.0 32.3 - 35.7 g/dL [facility] RDW CV 16.8(H) 11.1 - 14.9 % [facility] RDW SD 65.1(H) 35.7 - 48.1 fL [facility] NRBC abs 1.64(H) 0.00 - 0.01 K/cumm [facility] Blood specimen (specimen) 08/22/2019 11:39 AM CDT 08/22/2019 12:19 PM CDT Katelyn Payton NP LAB BLOOD ORDERABLES Pilar armas Result [facility] [address] [place] [address] documented in this encounter Visit Diagnoses Diagnosis 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),Tdwqd-ysfjdl-eyhh disease (HCC) TAKE 1 CAPSULE BY MOUTH ONCE DAILY 07/31/2019 08/22/2019 predniSONE (DELTASONE) 10 mg tabletIndications:AML (acute myeloid leukemia) in remission (HCC),Xhnql-skpkzp-tdza disease (HCC) TAKE 4 TABLETS BY MOUTH ONCE DAILY Reorder 04/30/2019 08/25/2019 BASAGLAR KWIKPEN U-100 INSULIN 100 unit/mL (3 mL) insulin penIndications:Type 2 diabetes mellitus with hyperosmolarity without coma, with long-term current use of insulin ([facility]) INJECT 30 UNITS Q AM Reorder 08/07/2019 08/25/2019 insulin NPH (HumuLIN N, NovoLIN N) 100 unit/mL (3 mL) insulin penIndications:Type 2 diabetes mellitus with hyperosmolarity without coma, with long-term current use of insulin ([facility]) Inject 15 Units under the skin daily with breakfast Take with prednisone Stop Taking at Discharge 07/01/2019 08/25/2019 predniSONE (DELTASONE) 5 mg tabletIndications: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 Inhalation only. 09 (Given - Provider: Dori Otto, PRACTICE PHYSICIAN) tiotropium (SPIRIVA) 18 mcg per inhalation capsule [...] 2 puff, inhalation, Every 4 hours PRN (correspondence section supervisor), wheezing, Starting on 08/22/19 at 2200 0010 (Given - Provider: Paty Cummings, BRANDEN) albuterol HFA (PROVENTIL HFA,VENTOLIN HFA,PROAIR HFA) 90 mcg/actuation inhaler 2 puff 2 puff, inhalation, Every 4 hours PRN, wheezing, Starting on 08/23/19 at 0100 0638 (Given - Provider: Fadia Toledo RN)1928 (Given - Provider: Bonnie Tran RN) 0627 (Given - Provider: Fadia Toledo RN) aluminum & magnesium nckzavgwb-jxaregxszjk-fyg henhydramine-lidocaine (MAGIC MOUTHWASH) suspension 1-1-1 15 mL, [...] Call MD for each episode of hypoglycemia. GREEN MEAT PACKER STATES GLUTOSE-15 CONTAINS GLUCOSE 40% W/W (50% [...] Call MD for each episode of hypoglycemia. GREEN MEAT PACKER STATES GLUTOSE-15 CONTAINS GLUCOSE 40% W/W (50% [...] 650 mg 2 03/2019 aluminum & magnesium znfwquamk-icxbhvbmkgv-lewijjqljdtcovw-lido aida (MAGIC MOUTHWASH) suspension 1-1-1 1 08/22/2019 [...] documented as of this encounter Care Teams Vacation Planner Relationship Specialty Start Date End Date Kirt Lindsay DO PCP - General 05/02/17 11/22/20 documented as of this encounter
--- OUTSIDE RECORDS SUMMARY | 2024-11-22 13:06 | XMS_ITS | Encounter Summary ---
Author Organization [facility] Address [address] [place] [address] Phone Care Team Providers Care Information Resource Consultant Name Role Phone Kirt Lindsay DO Primary Care Provider [phone] Encounter Details Date Type Department Care Team (Latest Contact Info) Description 08/07/2019 11:40 AM CDT Office Visit [facility] Oncology [address] [facility] [address] Advanced Medicine 7th [place] [address] [place] [address] Eneida Gibson MD [address] [place] [address] Vitamin D deficiency (Primary Dx); Type 2 [...] on file Legal Sex Male 10:48 AM CARE MGR Gender Identity Not on file Sexual Orientation [...] Body Mass Index 22.79 11/22/2018 4:50 PM CARE MGR documented in this encounter Patient Instructions * [...] with the BMT yet. He currently takes Eghdzocn67 units QAM, and Novolog SS. Also uses [...] Onc/Hem/BMT; [facility] Hemoglobin A1c Vitamin [...] Onc/Hem/BMT; [facility] Hemoglobin A1c Vitamin [...] Vitamin D 25 hydroxy (11/20/2019 9:29 AM CARE MGR) Vitamin D 25-OH 16(L) 30 - 80 ng/mL [facility] Blood specimen (specimen) 11/20/2019 9:29 AM CARE MGR 11/20/2019 10:09 AM CARE MGR Eneida Gibson MD LAB BLOOD ORDERABLES Final Resul t [facility] Department [place] [address] * (ABNORMAL) Hemoglobin A1c (11/20/2019 9:29 AM CARE MGR) Hgb A1C 13.5(H) 4.0 - 5.6 % [facility] Estimated Average Glucose 341 mg/dL [facility] Comment: The ADA recommends reporting an estimated Average Glucose (eAG) with all Hemoglobin A1c results using the equation derived from a study of 507 normal and diabetic adults. ??Minority populations were underrepresented and children were not included. ?? (Diabetes Care 31:3356-9866, 2008). ??The eAG is not equivalent to a fasting glucose. Blood specimen (specimen) 11/20/2019 9:29 AM CARE MGR 11/20/2019 10:05 AM CARE MGR Eenida Gibson MD LAB BLOOD ORDERABLES Final Resul t [facility] Department [place] [address] * (ABNORMAL) Comprehensive metabolic panel (11/20/2019 9:29 AM CARE MGR) Sodium 138 135 - 145 mmol/L [facility] Potassium, pl 3.9 3.3 - 4.9 mmol/L [facility] Chloride 97 97 - 110 mmol/L [facility] CO2 35(H) 22 - 32 mmol/L [facility] Anion gap 6 2 - 15 mmol/L [facility] BUN 15 8 - 25 mg/dL [facility] Creatinine 0.74(L) 0.80 - 1.30 mg/dL [facility] Glucose 402(H) 70 - 199 mg/dL [facility] Comment: Interpretive Data Fasting glucose [...] Calcium 9.4 8.5 - 10.3 mg/dL [facility] Bilirubin, total 0.3 0.1 - 1.2 mg/dL [facility] Protein, pl 7.0 6.5 - 8.5 g/dL [facility] Albumin 3.7 3.5 - 5.0 g/dL [facility] Alk phos 118 40 - 130 Units/L [facility] ALT 30 7 - 55 Units/L [facility] AST 18 10 - 50 Units/L [facility] Blood specimen (specimen) 11/20/2019 9:29 AM CARE MGR 11/20/2019 10:05 AM CARE MGR Eneida Gibson MD LAB BLOOD ORDERABLES Final Resul t [facility] [place] [address] documented in this encounter Visit Diagnoses Diagnosis [...] as of this encounter Care Teams Information Resource Consultant Relationship Specialty Start Date End Date Kirt Lindsay DO PCP - General 05/02/17 11/22/20 documented as of this encounter
--- OUTSIDE RECORDS SUMMARY | 2024-11-22 13:06 | XMS_ITS | Encounter Summary ---
Author Organization [facility] Address [address] [place] [address] Phone Care Team Providers Care Rig Mechanic Name Role Phone Kirt Lindsay DO Primary Care Provider [phone]- [phone] Josué Del Valle MD PhD Unavailable [phone] Encounter Details Date Type Department Care Team (Late st Contact Info) Description 08/28/2019 Telephone [facility] Bone Marrow Transplant [address] [facility] Advanced Medicine 7th Floor, [place] [address] Mellisa Rubalcava RN Social History Tobacco Use Types Packs/Day Years Used Date Smoking Tobacco: Every Day Smokeless Tobacco: Never Comments:Pt not interested i n smoking cessation program Sex and Gender Information Value Date Recorded Sex Assigned at Not on file Legal Sex Male 10:48 AM RECEIVING TELLER Gender Identity Not on file Sexual Orientation Not on file documented as of this encounter Miscellaneous Notes * Telephone Encounter - Mellisa Rubalcava RN - 08/28/2019 4:20 PM CDT D/C Date:08-25-19 Discharged from: [facility] Discharge to: home Issues since Discharge: other [...] documented as of this encounter Care Teams Rig Mechanic Relationship Specialty Start Date End Date Kirt Lindsay DO PCP - General 05/02/17 11/22/20 Josué Del Valle MD PhD Medical Oncologist/Digital Director Medical Oncology 08/26/19 documented as of this encounter
--- OUTSIDE RECORDS SUMMARY | 2024-11-22 13:06 | XMS_ITS | Encounter Summary ---
Author Organization [facility] Address [address] [place] [address] Phone Care Team Providers Care Secondary English Teacher Name Role Phone Kirt Lindsay DO Primary Care Provider [phone]- [phone] Encounter Details Date Type Department Care Team (Late st Contact Info) Description 08/07/2019 Orders Only [facility] Oncology [address] [facility] Advanced Medicine 7th [place] [address] [place] [address] Eneida Gibson MD [address] [place] [address] Social History Tobacco Use Types Packs/Day Years Used Date Smoking Tobacco: Every Day Smokeless Tobacco: Never Comments:Pt not interested i n smoking cessation program Sex and Gender Information Value Date Recorded Sex Assigned at Not on file Legal Sex Male 10:48 AM CRYSTALIZER TENDER Gender Identity Not on file Sexual Orientation Not on file documented as of this encounter Plan of Treatment Not on file documented as of this encounter Visit Diagnoses Not on filedocumented in this encounter 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
--- OUTSIDE RECORDS SUMMARY | 2024-11-22 13:06 | XMS_ITS | Encounter Summary ---
Author Organization [facility] Address [address] [place] [address] Phone Care Team Providers Care Kerfer Machine Operator Name Role Phone Kirt Lindsay DO Primary Care Provider [phone] Josué Del Valle MD PhD Unavailable [phone] Encounter Details Date Type Department Care Team (Late st Contact Info) Description 10/29/2019 Orders Only [facility] Bone Marrow Transplant [address] [facility] 7th Floor, [place] [address] Narcisa Kilgore NP [address] DIV IM BONE MARROW TRANSPLANT, [address] [place] [address] 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) Social History Tobacco Use Types Packs/Day Years Used Date Smoking Tobacco: Every Day Smokeless Tobacco: Never Comments:Pt not interested i n smoking cessation program Sex and Gender Information Value Date Recorded Sex Assigned at Not on file Legal Sex Male 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 PROFESSIONAL Gender Identity Not on file Sexual Orientation Not on file documented as of this encounter Plan of Treatment Not on file documented as of this encounter Results * (ABNORMAL) CBC with auto differential (11/20/2019 9:45 AM AUTOMOTIVE PROFESSIONAL) WBC 14.1(H) 3.8 - 9.8 K/cumm [facility] Comment:Testing performed by : [facility], [address] [place], [place] [id number] Hgb 14.2 13.8 - 17.2 g/dL [facility] Comment:Testing performed by : [facility], [address] [place], [place] [id number] Hct 42.2 40.7 - 50.3 % [facility] Comment:Testing performed by : [place] [id number] Plt 291 140 - 440 K/cumm [facility] Comment:Testing performed by : [place] [id number] MPV 9.2 6.8 - 10.4 fL [facility] Comment:Testing performed by : [place] [id number] RBC 4.17(L) 4.50 - 5.70 M/cumm [facility] Comment:Testing performed by : [place] [id number] MCV 101.3(H) 80.0 - 97.6 fL [facility] Comment:Testing performed by : [place] [id number] MCH 34.1(H) 26.7 - 33.7 pg [facility] Comment:Testing performed by : [place] [id number] MCHC 33.6 32.7 - 35.5 g/dL [facility] Comment:Testing performed by : [place] [id number] RDW CV 14.5 11.8 - 14.6 % [facility] Comment:Testing performed by : [address] [phone] NRBC abs 0.52(H) 0.00 - 0.01 K/cumm [facility] Comment:Testing performed by : [facility], [address] [place] [phone] Blood specimen (specimen) 11/20/2019 9:45 AM AUTOMOTIVE PROFESSIONAL 11/20/2019 9:48 AM AUTOMOTIVE PROFESSIONAL us Narcisa Kilgore NP LAB BLOOD ORDERABLES Pilar l Result Performing Organization Address [facility] Co de Phone Number [facility] Department [place] [address] * Cytomegalovirus (CMV) DNA PCR, quantitative Blood (11/20/2019 9:44 AM AUTOMOTIVE PROFESSIONAL) CMV DNA Not Detected [facility] Comment: Interpretive Data: The quantifiable range of this assay is 137 IUnits/mL to 9,100,000 IUnits/mL (2.14 log IUnits/mL to 6.96 log IUnits/mL). Testing was performed by the MICHEL AmpliPrep/MICHEL TaqMan CMV Test ([employer] Testing performed at [facility] Current interpretive data was last revised on 17. Blood specimen (specimen) 11/20/2019 9:44 AM AUTOMOTIVE PROFESSIONAL 11/20/2019 12:44 PM AUTOMOTIVE PROFESSIONAL Narcisa Kilgore NP LAB MICROBIOLOGY - GENERA L ORDERABLES Final Result Performing Organization Address [facility] de Phone Number [facility] Department [place] [address] * Uric acid (11/20/2019 9:29 AM AUTOMOTIVE PROFESSIONAL) Pathologist [facility] Uric acid 5.2 3.0 - 8.0 mg/dL [facility] Blood specimen (specimen) 11/20/2019 9:29 AM AUTOMOTIVE PROFESSIONAL 11/20/2019 10:09 AM AUTOMOTIVE PROFESSIONAL Narcisa Kilgore NP LAB BLOOD ORDERABLES Pilar l Result Performing Organization Address City/[facility] Co de Phone Number [facility] [place] [address] * Tacrolimus level, random (11/20/2019 9:29 AM AUTOMOTIVE PROFESSIONAL) Tacrolimus, random <1.0 ng/mL [facility] Comment: Undetectable. [...] 2019. Blood specimen (specimen) 11/20/2019 9:29 AM AUTOMOTIVE PROFESSIONAL 11/20/2019 10:05 AM AUTOMOTIVE PROFESSIONAL Narcisa Kilgore BRAZE OPERATOR LAB BLOOD ORDERABLES Pilar l Result Performing Organization Address [facility] Co de Phone Number [facility] [place] [address] * Magnesium (11/20/2019 9:29 AM AUTOMOTIVE PROFESSIONAL) Pathologist [facility] Magnesium 1.7 1.4 - 2.5 mg/dL [facility] Blood specimen (specimen) 11/20/2019 9:29 AM AUTOMOTIVE PROFESSIONAL 11/20/2019 10:09 AM AUTOMOTIVE PROFESSIONAL Narcisa Kilgore BRAZE OPERATOR LAB BLOOD ORDERABLES Pilar l Result Performing Organization Address [facility]/[place] [address] * (ABNORMAL) Lactate dehydrogenase (LD) (11/20/2019 9:29 AM AUTOMOTIVE PROFESSIONAL) Pathologist [facility] Lactate dehydrogenase (LDH) 428(H) 100 - 250 Units/L [facility] Blood specimen (specimen) 11/20/2019 9:29 AM AUTOMOTIVE PROFESSIONAL 11/20/2019 10:09 AM AUTOMOTIVE PROFESSIONAL Narcisa Kilgore BRAZE OPERATOR LAB BLOOD ORDERABLES Pilar pawel Result [facility] Department [place] [address] documented in this encounter Visit Diagnoses Diagnosis 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
--- OUTSIDE RECORDS SUMMARY | 2024-11-22 13:06 | XMS_ITS | Encounter Summary ---
Author Organization [facility] Address [address] [facility] [address] [place] [address] Phone Care Team Providers Care Rn Palliative Care Name Role Phone Kirt Lindsay DO Primary Care Provider [phone] Josué Del Valle MD PhD Unavailable [phone] Reason for Visit * Oncology (Routine) - Closed Specialty Diagnoses / Procedures Referred By Contac t Referred To Contact Lab Diagnoses #C,,, pt call Procedures ARM DRAW Josué Del Valle MD PhD Phone: tel: fax: [facility] Oncology [address] [facility] 7th [place] [address] [place] [address] Phone: tel: Referral ID Status Reason Start Date Expiration Date V isits Requested Visits Authorized [id number] Closed Specialty Services Required 11/20/2019 11/19/2020 24 24 Encounter Details Date Type Department Care Team (Late st Contact Info) Description 11/20/2019 9:30 AM COMMUNITY MIDWIFE Lab [facility] Oncology [address] [facility] 7th [place] [address] [place] [address] AML (acute myeloid leukemia) in remission (CMS/HCC); Vbubn-pykzgu-gjxq disease (CMS/HCC); Type 2 diabetes mellitus with hyperosmolarity without coma, with long-term current use of insulin (CMS/HCC); Osteopenia, unspecified location Social History Tobacco Use Types Packs/Day Years Used Date Smoking Tobacco: Every Day Smokeless Tobacco: Never Comments:Pt not interested i n smoking cessation program Sex and Gender Information Value Date Recorded Sex Assigned at Not on file Legal Sex Male 10:48 AM COMMUNITY MIDWIFE Gender Identity Not on file Sexual Orientation Not on file documented as of this encounter Plan of Treatment Not on file documented as of this encounter Procedures Procedure Name Priority Date/Time Associated Diagnosis Comments CBC WITH AUTO DIFFERENTIAL Routine 11/20/2019 9:45 AM COMMUNITY MIDWIFE AML (acute myeloid leukemia) in remission ([facility]/HCC) MANUAL DIFFERENTIAL Routine 11/20/2019 9 :45 AM COMMUNITY MIDWIFE AML (acute myeloid leukemia) in remission ([facility]) CYTOMEGALOVIRUS (CMV) DNA, QUANT GEN LAB Routine 11/20/2019 9:44 AM COMMUNITY MIDWIFE AML (acute myeloid leukemia) in remission ([facility]) T-HELPER CELLS (CD4) COUNT Routine 11/20/2019 9:44 AM COMMUNITY MIDWIFE Djdnc-ihqqtd-iftf disease ([facility]/HCC) TACROLIMUS LEVEL, RANDOM Routine 11/20/2019 9:29 AM COMMUNITY MIDWIFE AML (acute myeloid leukemia) in remission ([facility]) VITAMIN D 25 HYDROXY Routine 11/20/2019 9:29 AM COMMUNITY MIDWIFE Type 2 diabetes mellitus with hyperosmolarity without coma, with long-term current use of insulin ([facility]/HCC) Osteopenia, unspecified location URIC ACID Routine 11/20/2019 9:29 AM COMMUNITY MIDWIFE AML (acute myeloid leukemia) in remission ([facility]/HCC) PHOSPHORUS Routine 11/20/2019 9:29 AM COMMUNITY MIDWIFE MAGNESIUM Routine 11/20/2019 9:29 AM COMMUNITY MIDWIFE AML (acute myeloid leukemia) in remission ([facility]/HCC) LACTATE DEHYDROGENASE Routine 11/20/2019 9:29 AM COMMUNITY MIDWIFE AML (acute myeloid leukemia) in remission ([facility]/HCC) HEMOGLOBIN A1C Routine 11/20/2019 9:29 AM COMMUNITY MIDWIFE Type 2 diabetes mellitus with hyperosmolarity without coma, with long-term current use of insulin ([facility]) Osteopenia, unspecified location IGG Routine 11/20/2019 9:29 AM COMMUNITY MIDWIFE Iathy-hewehv-gebl disease ([facility]/HCC) COMPREHENSIVE METABOLIC PANEL Routine 11/20/2019 9:29 AM COMMUNITY MIDWIFE Type 2 diabetes mellitus with hyperosmolarity without coma, with long-term current use of insulin ([facility]) Osteopenia, unspecified location documented in this encounter Results * (ABNORMAL) Manual Differential (11/20/2019 9:45 AM COMMUNITY MIDWIFE) Differential Manual [facility] Cells Counted 100 [...] 3-7/HPF(A) [facility] Teardrop cells 3-7/HPF(A) C[facility]ER [facility] Platelet estimate Adequate [facility] Blood specimen (specimen) 11/20/2019 9:45 AM COMMUNITY MIDWIFE 11/20/2019 9:48 AM COMMUNITY MIDWIFE us Narcisa Kilgore COMMERCIAL REAL ESTATE SALES MANAGER LAB BLOOD ORDERABLES Pilar armas Result [facility] Department [place] [address] * (ABNORMAL) CBC with auto differential (11/20/2019 9:45 AM COMMUNITY MIDWIFE) WBC 14.1(H) 3.8 - 9.8 K/cumm [facility] Comment:Testing performed by : [facility], [address] [place] [phone] Hgb 14.2 13.8 - 17.2 g/dL [facility] Comment:Testing performed by : [facility], [address] [place] [phone] Hct 42.2 40.7 - 50.3 % [facility] Comment:Testing performed by : [facility], [address] [place] [phone] Plt 291 140 - 440 K/cumm [facility] Comment:Testing performed by : [facility], [address] [place] [phone] MPV 9.2 6.8 - 10.4 fL [facility] Comment:Testing performed by : [facility], [address] [place] [phone] RBC 4.17(L) 4.50 - 5.70 M/cumm [facility] Comment:Testing performed by : [facility], [address] [place] [phone] MCV 101.3(H) 80.0 - 97.6 fL [facility] Comment:Testing performed by : [facility], [address] [place] [phone] MCH 34.1(H) 26.7 - 33.7 pg [facility] Comment:Testing performed by : [facility], [address] [place] [phone] MCHC 33.6 32.7 - 35.5 g/dL [facility] Comment:Testing performed by : [facility], [address] [place] [phone] RDW CV 14.5 11.8 - 14.6 % [facility] Comment:Testing performed by : [facility], [address] [place] [phone] NRBC abs 0.52(H) 0.00 - 0.01 K/cumm [facility] Comment:Testing performed by : [facility], [address] [place] [phone] Blood specimen (specimen) 11/20/2019 9:45 AM COMMUNITY MIDWIFE 11/20/2019 9:48 AM COMMUNITY MIDWIFE Narcisa Kilgore COMMERCIAL REAL ESTATE SALES MANAGER LAB BLOOD ORDERABLES Pilar l Result Performing Organization Address City/[facility]/ZIP Co de Phone Number [facility] [place] [address] * (ABNORMAL) T-helper cells (CD4) count (11/20/2019 9:44 AM COMMUNITY MIDWIFE) CD4 pct 43 31 - 64 % [facility] CD4 Absolute 1,527(H) 365 - 1,294 cells/mcL [facility] Blood specimen (specimen) 11/20/2019 9:44 AM COMMUNITY MIDWIFE 11/20/2019 10:00 AM COMMUNITY MIDWIFE Narcisa Kilgore COMMERCIAL REAL ESTATE SALES MANAGER LAB BLOOD ORDERABLES Pilar l Result Performing Organization Address City/[facility]/ZIP Co de Phone Number [facility] [place] [address] * Cytomegalovirus (CMV) DNA PCR, quantitative Blood (11/20/2019 9:44 AM COMMUNITY MIDWIFE) [facility] CMV DNA Not Detected [facility] Comment: Interpretive Data: The quantifiable range of this assay is 137 IUnits/mL to 9,100,000 IUnits/mL (2.14 log IUnits/mL to 6.96 log IUnits/mL). Testing was performed by the MICHEL AmpliPrep/MICHEL TaqMan CMV Test ([employer] Testing performed at [facility] Current interpretive data was last revised on 17. Blood specimen (specimen) 11/20/2019 9:44 AM COMMUNITY MIDWIFE 11/20/2019 12:44 PM COMMUNITY MIDWIFE us Narcisa Kilgore COMMERCIAL REAL ESTATE SALES MANAGER LAB MICROBIOLOGY - GENERA L ORDERABLES Final Result Performing Organization Address [facility]/ZIP Co de Phone Number [facility] Department [place] [address] * (ABNORMAL) Phosphorus (11/20/2019 9:29 AM COMMUNITY MIDWIFE) [facility] Phosphorus, pl 2.0(L) 2.3 - 4.5 mg/dL [facility] Blood specimen (specimen) 11/20/2019 9:29 AM COMMUNITY MIDWIFE 11/20/2019 10:09 AM COMMUNITY MIDWIFE us Notinfile Unknown LAB BLOOD ORDERABLES Final Res ult [facility] Department [place] [address] * (ABNORMAL) Comprehensive metabolic panel (11/20/2019 9:29 AM COMMUNITY MIDWIFE) [facility] Sodium 138 135 - 145 mmol/L [facility] Potassium, pl 3.9 3.3 - 4.9 mmol/L [facility] Chloride 97 97 - 110 mmol/L [facility] CO2 35(H) 22 - 32 mmol/L [facility] Anion gap 6 2 - 15 mmol/L [facility] BUN 15 8 - 25 mg/dL [facility] Creatinine 0.74(L) 0.80 - 1.30 mg/dL [facility] Glucose 402(H) 70 - 199 mg/dL [facility] Comment: Interpretive Data Fasting glucose >/= [...] 2017. Calcium 9.4 8.5 - 10.3 mg/dL [facility] Bilirubin, total 0.3 0.1 - 1.2 mg/dL [facility] Protein, pl 7.0 6.5 - 8.5 g/dL [facility] Albumin 3.7 3.5 - 5.0 g/dL [facility] Alk phos 118 40 - 130 Units/L [facility] ALT 30 7 - 55 Units/L [facility] AST 18 10 - 50 Units/L [facility] Blood specimen (specimen) 11/20/2019 9:29 AM COMMUNITY MIDWIFE 11/20/2019 10:05 AM COMMUNITY MIDWIFE Eneida Gibson MD LAB BLOOD ORDERABLES Final Resul t [facility] [place] [address] * (ABNORMAL) Hemoglobin A1c (11/20/2019 9:29 AM COMMUNITY MIDWIFE) Hgb A1C 13.5(H) 4.0 - 5.6 % [facility] Estimated Average Glucose 341 mg/dL [facility] Comment: The ADA recommends reporting an estimated Average Glucose (eAG) with all Hemoglobin A1c results using the equation derived from a study of 507 normal and diabetic adults. ??Minority populations were underrepresented and children were not included. ?? (Diabetes Care 31:9869-4429, 2008). ??The eAG is not equivalent to a fasting glucose. Blood specimen (specimen) 11/20/2019 9:29 AM COMMUNITY MIDWIFE 11/20/2019 10:05 AM COMMUNITY MIDWIFE Eneida Gibson MD LAB BLOOD ORDERABLES Final Resul t Performing Organization Address [facility] Co de Phone Number [facility] Department [place] [address] * (ABNORMAL) Vitamin D 25 hydroxy (11/20/2019 9:29 AM COMMUNITY MIDWIFE) Vitamin D 25-OH 16(L) 30 - 80 ng/mL [facility] Blood specimen (specimen) 11/20/2019 9:29 AM COMMUNITY MIDWIFE 11/20/2019 10:09 AM COMMUNITY MIDWIFE Eneida Gibson MD LAB BLOOD ORDERABLES Final Resul t Performing Organization Address [facility] de Phone Number [facility] [place] [address] * IgG (11/20/2019 9:29 AM COMMUNITY MIDWIFE) Immunoglobulin G 900.0 700.0 - 1,600.0 mg/dL [facility] Blood specimen (specimen) 11/20/2019 9:29 AM COMMUNITY MIDWIFE 11/20/2019 10:09 AM COMMUNITY MIDWIFE Narcisa Kilgore COMMERCIAL REAL ESTATE SALES MANAGER LAB BLOOD ORDERABLES Pilar l Result Performing Organization Address [facility] de Phone Number [facility] [place] [address] * (ABNORMAL) Lactate dehydrogenase (LD) (11/20/2019 9:29 AM COMMUNITY MIDWIFE) Lactate dehydrogenase (LDH) 428(H) 100 - 250 Units/L [facility] Blood specimen (specimen) 11/20/2019 9:29 AM COMMUNITY MIDWIFE 11/20/2019 10:09 AM COMMUNITY MIDWIFE Narcisa Kilgore COMMERCIAL REAL ESTATE SALES MANAGER LAB BLOOD ORDERABLES Pilar l Result Performing Organization Address [facility] de Phone Number [facility] [place] [address] * Magnesium (11/20/2019 9:29 AM COMMUNITY MIDWIFE) Magnesium 1.7 1.4 - 2.5 mg/dL [facility] Blood specimen (specimen) 11/20/2019 9:29 AM COMMUNITY MIDWIFE 11/20/2019 10:09 AM COMMUNITY MIDWIFE Narcisa Kilgore COMMERCIAL REAL ESTATE SALES MANAGER LAB BLOOD ORDERABLES Pilar l Result Performing Organization Address [facility] Phone Number [facility] Department [place] [address] * Tacrolimus level, random (11/20/2019 9:29 AM COMMUNITY MIDWIFE) Tacrolimus, random <1.0 ng/mL [facility] Comment: Undetectable. ??Please verify that the correct immunosuppressant test was requested. Interpretive Data Testing performed by liquid chromatography-tandem mass spectrometry. ??Therapeutic concentrations vary depending on type of transplanted organ and time elapsed since transplant. ??Typical trough concentrations range from 5-15 ng/mL. ??This test was developed and its performance characteristics determined by the [facility] Laboratory consistent with CLIA requirements. ??This test has not been cleared or approved by the [place] Food and Drug administration. ??Current interpretive data last reviewed 2019. Blood specimen (specimen) 11/20/2019 9:29 AM COMMUNITY MIDWIFE 11/20/2019 10:05 AM COMMUNITY MIDWIFE Narcisa Kilgore COMMERCIAL REAL ESTATE SALES MANAGER LAB BLOOD ORDERABLES Pilar l Result Performing Organization Address [facility] de Phone Number [facility] Department [place] [address] * Uric acid (11/20/2019 9:29 AM COMMUNITY MIDWIFE) Uric acid 5.2 3.0 - 8.0 mg/dL [facility] Blood specimen (specimen) 11/20/2019 9:29 AM COMMUNITY MIDWIFE 11/20/2019 10:09 AM COMMUNITY MIDWIFE us Narcisa Kilgore COMMERCIAL REAL ESTATE SALES MANAGER LAB BLOOD ORDERABLES Pilar l Result ZULEMA [facility] [place] [address] documented in this encounter Visit Diagnoses Diagnosis AML (acute myeloid leukemia) in remission (HCC) Qoewr-skeaby-rznw disease (HCC) Type 2 diabetes mellitus with hyperosmolarity without coma, with long-term current use of insulin (HCC) Osteopenia, unspecified location documented in this encounter 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 Care Teams Rn Palliative Care Relationship Specialty Start Date End Date Kirt Lindsay DO PCP - General 05/02/17 11/22/20 Josué Del Valle MD PhD Medical Oncologist/Sweeper Cleaner Industrial Medical Oncology 08/26/19 documented as of this encounter
--- OUTSIDE RECORDS SUMMARY | 2024-11-22 13:06 | XMS_ITS | Encounter Summary ---
Author Organization [facility] Facility Care Team Providers Care Route Deliverer Name Role Phone Kirt Lindsay DO Primary Care Provider [phone] Encounter Details Date Type Department Care Team (Latest Contact Info) Description 08/22/2019 Travel Social History Tobacco Use Types Packs/Day Years Used Date Smoking Tobacco: Every Day Smokeless Tobacco: Never Comments:Pt not interested i n smoking cessation program Sex and Gender Information Value Date Recorded Sex Assigned at Not on file Legal Sex Male 10:48 AM AIR TRAFFIC CONTROL EQUIPMENT REPAIRER Gender Identity Not on file Sexual Orientation Not on file documented as of this encounter Plan of Treatment Not on file documented as of this encounter Visit Diagnoses Not on filedocumented in this encounter 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 Care Teams Route Deliverer Relationship Specialty Start Date End Date Kirt Lindsay DO PCP - General 05/02/17 11/22/20 documented as of this encounter
--- OUTSIDE RECORDS SUMMARY | 2024-11-22 13:06 | XMS_ITS | Encounter Summary ---
Author Organization [facility] Address [address] [place] [address] Phone Care Team Providers Care Director Of Corporate Sales Name Role Phone Kirt Lindsay DO Primary Care Provider [phone]- [phone] Encounter Details Date Type Department Care Team (Late st Contact Info) Description 08/21/2019 Orders Only [facility] Oncology [address] [facility] Advanced Medicine 7th [place] [address] [place] [address] Eneida Gibson MD [address] [place] [address] Type 2 diabetes mellitus with hyperosmolarity without coma, with long-term current use of insulin ([facility]) (Primary Dx) Social History Tobacco Use Types Packs/Day Years Used Date Smoking Tobacco: Every Day Smokeless Tobacco: Never Comments:Pt not interested i n smoking cessation program Sex and Gender Information Value Date Recorded Sex Assigned at Not on file Legal Sex Male 10:48 AM DIAMOND FINISHING SUPERVISOR Gender Identity Not on file Sexual [...] of this encounter Care Teams Director Of Corporate Sales Relationship Specialty Start Date End Date Kirt Lindsay DO PCP - General 05/02/17 11/22/20 documented as of this encounter
--- OUTSIDE RECORDS SUMMARY | 2024-11-22 13:06 | XMS_ITS | Encounter Summary ---
Author Organization [facility] Address [address] [place] [address] Phone Care Team Providers Care Incident Coordinator Name Role Phone Kirt Lindsay DO Primary Care Provider [phone]- [phone] Josué Del Valle MD PhD Unavailable [phone] Reason for Visit * Reason Onset Date Comments Hospital Follow Up 08/27/2019 Encounter Details Date Type Department Care Team (Late st Contact Info) Description 08/27/2019 Telephone [facility] Bone Marrow Transplant [address] [facility] Advanced Medicine 7th Floor, [place] [address] Michael Delong RN Hospital Follow Up Social History Tobacco Use Types Packs/Day Years Used Date Smoking Tobacco: Every Day Smokeless Tobacco: Never Comments:Pt not interested i n smoking cessation program Sex and Gender Information Value Date Recorded Sex Assigned at Not on file Legal Sex Male 10:48 AM HOSE HANDLER Gender Identity Not on file Sexual Orientation Not on file documented as of this encounter Miscellaneous Notes * Telephone Encounter - Michael Delong RN - 08/27/2019 3:44 PM CDT D/C Date: 08/25/19 Discharged from: [facility] Discharge to: home LMOV for patient to return call. documented in this encounter Plan of Treatment Not on file documented as of this encounter Visit Diagnoses Not on filedocumented in this encounter 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 Care Teams Incident Coordinator Relationship Specialty Start Date End Date Kirt Lindsay DO PCP - General 05/02/17 11/22/20 Josué Del Valle MD PhD Medical Oncologist/Security Operations Specialist Medical Oncology 08/26/19 documented as of this encounter
--- OUTSIDE RECORDS SUMMARY | 2024-11-22 13:06 | XMS_ITS | Encounter Summary ---
Author Organization [facility] Address [address] [place] [address] Care Team Providers Care Dye Line Operator Name Role Phone Kirt Lindsay DO Primary Care Provider [phone]- [phone] Josué Del Valle MD PhD Unavailable [phone] Encounter Details Date Type Department Care Team (Late st Contact Info) Description 10/16/2019 Orders Only [facility] Medical Group Cardiology [address] [facility] [address] [place] [address] Eligio Vinson MD [address] [facility] [address] [place] [address] Social History Tobacco Use Types Packs/Day Years Used Date Smoking Tobacco: Every Day Smokeless Tobacco: Never Comments:Pt not interested i n smoking cessation program Sex and Gender Information Value Date Recorded Sex Assigned at Not on file Legal Sex Male 10:48 AM BUSINESS BROKER Gender Identity Not on file [...] as of this encounter Care Teams Dye Line Operator Relationship Specialty Start Date End Date Kirt Lindsay DO PCP - General 05/02/17 11/22/20 Josué Del Valle MD PhD Medical Oncologist/Reed Repairer Medical Oncology 08/26/19 documented as of this encounter
--- OUTSIDE RECORDS SUMMARY | 2024-11-22 13:06 | XMS_ITS | Encounter Summary ---
Author Organization [facility] Address [address] [place] [address] Phone Care Team Providers Care Detasseling Crew Supervisor Name Role Phone Kirt Lindsay DO Primary Care Provider [phone]- [phone] Encounter Details Date Type Department Care Team (Late st Contact Info) Description 08/22/2019 Telephone [facility] Oncology [address] [place] [address] Haritha Wheeler NP [address] [place] [address] Social History Tobacco Use Types Packs/Day Years Used Date Smoking Tobacco: Every Day Smokeless Tobacco: Never Comments:Pt not interested i n smoking cessation program Sex and Gender Information Value Date Recorded Sex Assigned at Not on file Legal Sex Male 10:48 AM COMMODITY MANAGER Gender Identity Not on file Sexual Orientation Not on file documented as of this encounter Miscellaneous Notes * Telephone Encounter - Haritha Wheeler NP - 08/22/2019 9:41 AM CDT WEEKEND EXCHANGE CALL Patient: Brady Jones 1965 Call date: 10/05/19 Caller: Brady Callback number: [phone] Brady called the exchange this morning reporting worsening shortness of breath. He states that he was admitted locally for 9 days for dyspnea. He states that since speaking with Dr. Del Valle's office after discharge they wanted him to be admitted to [place] for further workup of his symptoms worsened [...] was agreeable. Primary oncologist team updated via [employer]. Haritha Wheeler, MSN, OCN, ANP Nurse Practitioner, Medical Oncology Sound Engineer completed by using [employer] Direct speaking software, therefore, transcriptionvariances may occur. documented in this encounter Plan of Treatment Not on file documented as of this encounter Visit Diagnoses Not on filedocumented in this encounter 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 Care Teams Detasseling Crew Supervisor Relationship Specialty Start Date End Date Kirt Lindsay DO PCP - General 05/02/17 11/22/20 documented as of this encounter
--- OUTSIDE RECORDS SUMMARY | 2024-11-22 13:07 | XMS_ITS | Encounter Summary ---
Author Organization [facility] Address [address] [place] [address] Phone Care Team Providers Care Highway Patrol Officer Name Role Phone Kirt Lindsay DO Primary Care Provider [phone]- [phone] Encounter Details Date Type Department Care Team (Late st Contact Info) Description 12/17/2018 Orders Only [facility] Bone Marrow Transplant [address] [facility] Advanced Medicine 7th Floor, [place] [address] Narcisa Kilgore NP [address] DIV IM BONE MARROW TRANSPLANT, [address] [place], [place] [id number] 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); Gyfwg-luvayg-uavt disease (CMS/HCC) Social History Tobacco Use Types Packs/Day Years Used Date Smoking Tobacco: Every Day Smokeless Tobacco: Never Comments:Pt not interested i n smoking cessation program Sex and Gender Information Value Date Recorded Sex Assigned at Not on file Legal Sex Male 10:48 AM COVER STRIPPER Gender Identity Not on file Sexual [...] (acute myeloid leukemia) in remission (HCC)- Primary Hnhri-rtuzkc-iinv disease (HCC) documented in this encounter 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 Care Teams Highway Patrol Officer Relationship Specialty Start Date End Date Kirt Lindsay DO PCP - General 05/02/17 11/22/20 documented as of this encounter
--- OUTSIDE RECORDS SUMMARY | 2024-11-22 13:07 | XMS_ITS | Encounter Summary ---
Author Organization [facility] Address [address] [place] [address] Phone Care Team Providers Care Soaking Tank Worker Name Role Phone Kirt Lindsay DO Primary Care Provider [phone]- [phone] Reason for Visit * Reason Onset Date Comments TCV 12/01/2018 Encounter Details Date Type Department Care Team (Late st Contact Info) Description 12/01/2018 Telephone [facility] Bone Marrow Transplant [address] [facility] 7th Floor, [place] [address] Mellisa Rubalcava RN TCV Social History Tobacco Use Types Packs/Day Years Used Date Smoking Tobacco: Every Day Smokeless Tobacco: Never Comments:Pt not interested i n smoking cessation program Sex and Gender Information Value Date Recorded Sex Assigned at Not on file Legal Sex Male 10:48 AM PROCESSING TECHNICIAN Gender Identity Not on file Sexual Orientation Not on file documented as of this encounter Miscellaneous Notes * Telephone Encounter - Mellisa Rubalcava RN - 12/01/2018 10:02 AM PROCESSING TECHNICIAN D/C Date: 11-25-18 Discharged from: [facility] Discharge to: home Issues since Discharge: New equipment: New Treatment: New Medications: Received all discharge medications: Issues with discharge planning: Reviewed next appointment: yes Did you schedule as Transitional Care Visit? no call not in window and appt >14 days Is the patient on a research study with a research oral medication? no ESSING TECHNICIAN documented in this encounter Plan of Treatment Not on file documented as of this encounter Visit Diagnoses Not on filedocumented in this encounter 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 Care Teams Soaking Tank Worker Relationship Specialty Start Date End Date Kirt Lindsay DO PCP - General 05/02/17 11/22/20 documented as of this encounter
--- OUTSIDE RECORDS SUMMARY | 2024-11-22 13:07 | XMS_ITS | Encounter Summary ---
Author Organization [facility] Address [address] [facility] [address] [place] [address] Phone Care Team Providers Care Greens Tier Name Role Phone Kirt Lindsay DO Primary Care Provider [phone]- [phone] Reason for Visit * Reason Comments Osteopenia * Diagnostic Imaging (Routine) - Closed Specialty Diagnoses / Procedures Referred By Ana M t Referred To Contact Diagnoses Type 2 diabetes mellitus with hyperosmolarity without coma, with long-term current use of insulin (HCC) Osteopenia, unspecified location Procedures Dexa Axial Skeleton Bone Density 1 or 2 Site Eneida Gibson MD Phone: tel: [facility] Referral ID Status Reason Start Date Expiration Date Visits Re quested Visits Authorized [id number] Closed 05/29/2019 12/07/2020 1 1 Encounter Details Date Type Department Care Team (Latest Contact Info) Description 08/07/2019 9:50 AM CDT Clinical Support [place] [id number] [facility] Advanced [facility] 5th [place] [address] [place] [address] Type 2 diabetes mellitus with hyperosmolarity without coma, with long-term current use of insulin (CMS/HCC); Osteopenia, unspecified location; Other specified disorders of bone density and structure, left thigh; 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; roasterman current use of anticoagulant Social History Tobacco Use Types Packs/Day Years Used Date Smoking Tobacco: Every Day Smokeless Tobacco: Never Comments:Pt not interested i n smoking cessation program Sex and Gender Information Value Date Recorded Sex Assigned at Not on file Legal Sex Male 10:48 AM 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 ?? Machine Cross-calibration and Precision [...] by the International Society of Clinical Densitometry. [id number] Eneida Gibson MD IMG DXA PROCEDURES Final Result documented in this encounter Visit Diagnoses Diagnosis Type 2 diabetes mellitus with hyperosmolarity without coma, with long-term current use of insulin (HCC) Osteopenia, unspecified location Other specified disorders of bone density and structure, left thigh 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 roasterman current use of anticoagulant documented in this encounter 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 Care Teams Greens Tier Relationship Specialty Start Date End Date Kirt Lindsay DO PCP - General 05/02/17 11/22/20 documented as of this encounter
--- OUTSIDE RECORDS SUMMARY | 2024-11-22 13:07 | XMS_ITS | Encounter Summary ---
Author Organization [facility] Address [address] [place] [address] Phone Care Team Providers Care Risk Engineer Name Role Phone Kirt Lindsay DO Primary Care Provider +1- [phone] Encounter Details Date Type Department Care Team (Late st Contact Info) Description 07/31/2019 Orders Only [facility] Oncology [address] [facility] Advanced Medicine 7th [place] [address] [place] [address] Eneida Gibson MD [address] [place] [address] Type 2 diabetes mellitus with hyperosmolarity without coma, with long-term current use of insulin ([facility]) (Primary Dx) Social History Tobacco Use Types Packs/Day Years Used Date Smoking Tobacco: Every Day Smokeless Tobacco: Never Comments:Pt not interested i n smoking cessation program Sex and Gender Information Value Date Recorded Sex Assigned at Not on file Legal Sex 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
--- OUTSIDE RECORDS SUMMARY | 2024-11-22 13:07 | XMS_ITS | Encounter Summary ---
Author Organization [facility] Address [address] [place] [address] Phone Care Team Providers Care Jet Worker Name Role Phone Kirt Lindsay DO Primary Care Provider +1- [phone] Encounter Details Date Type Department Care Team (Late st Contact Info) Description 06/02/2019 Orders Only [facility] Oncology [address] [place] [address] Eneida Gibson MD [address] [place] [address] Vitamin D deficiency (Primary Dx) Social History Tobacco Use Types Packs/Day Years Used Date Smoking Tobacco: Every Day Smokeless Tobacco: Never Comments:Pt not interested i n smoking cessation program Sex and Gender Information Value Date Recorded Sex Assigned at Not on file Legal Sex Male 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
--- OUTSIDE RECORDS SUMMARY | 2024-11-22 13:07 | XMS_ITS | Encounter Summary ---
Author Organization [facility] Address [address] [place] [address] Phone Care Team Providers Care Stock Hanger Name Role Phone Kirt Lindsay DO Primary Care Provider +1- [phone] Encounter Details Date Type Department Care Team (Latest Contact Info) Description 03/31/2019 Orders Only [facility] Scanning, Provider Social History Tobacco Use Types Packs/Day Years Used Date Smoking Tobacco: Every Day Smokeless Tobacco: Never Comments:Pt not interested i n smoking cessation program Sex and Gender Information Value Date Recorded Sex Assigned at Not on file Legal Sex Male 10:48 AM COLLECTION SPECIALIST Gender Identity Not on file Sexual [...] documented as of this encounter Care Teams Stock Hanger Relationship Specialty Start Date End Date Kirt Lindsay DO PCP - General 05/02/17 11/22/20 documented as of this encounter
--- OUTSIDE RECORDS SUMMARY | 2024-11-22 13:07 | XMS_ITS | Encounter Summary ---
Author Organization [facility] Address [address] [place] [address] Phone Care Team Providers Care Profile Grinder Name Role Phone Kirt Lindsay DO Primary Care Provider +1- [phone] Encounter Details Date Type Department Care Team (Late st Contact Info) Description 02/24/2019 Orders Only [facility] Bone Marrow Transplant [address] 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); Lcpia-njuugu-rvlb disease (CMS/HCC) Social History Tobacco Use Types Packs/Day Years Used Date Smoking Tobacco: Every Day Smokeless Tobacco: Never Comments:Pt not interested i n smoking cessation program Sex and Gender Information Value Date Recorded Sex Assigned at Not on file Legal Sex Male 10:48 AM TWISTER TENDER Gender Identity Not on file Sexual Orientation Not on file documented as of this encounter Plan of Treatment Not on file documented as of this encounter Visit Diagnoses Diagnosis AML (acute myeloid leukemia) in remission (HCC)- Primary Duupm-zkwipt-ywzx disease (HCC) documented in this encounter 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 Care Teams Profile Grinder Relationship Specialty Start Date End Date Kirt Lindsay DO PCP - General 05/02/17 11/22/20 documented as of this encounter
--- OUTSIDE RECORDS SUMMARY | 2024-11-22 13:07 | XMS_ITS | Encounter Summary ---
Author Organization [facility] Address [address] [place] [address] Phone Care Team Providers Care Frozen Food Selector Name Role Phone Kirt Lindsay DO Primary Care Provider +1- [phone] Reason for Referral * Diagnostic Imaging (Routine) - Closed Specialty Diagnoses / Procedures Referred By Ana M t Referred To Contact Diagnoses Type 2 diabetes mellitus with hyperosmolarity without coma, with long-term current use of insulin (HCC) Osteopenia, unspecified location Procedures Dexa Axial Skeleton Bone Density 1 or 2 Site Eneida Gibson MD Phone: tel: [facility] Referral ID Status Reason Start Date Expiration Date Visits Re quested Visits Authorized [id number] Closed 05/29/2019 12/07/2020 1 1 Encounter Details Date Type Department Care Team (Latest Contact Info) Description 05/29/2019 11:20 AM CDT Office Visit [facility] Oncology [address] [facility] 7th [place] [address] [place] [address] Eneida Gibson MD [address] [place] [address] Type 2 diabetes mellitus with hyperosmolarity without coma, with long-term current use of insulin ([facility]) (Primary Dx); Osteopenia, unspecified location; Vitamin D [...] Body Mass Index 21.18 11/22/2018 4:50 PM LIGHT BULB REPLACER documented in this encounter Progress Notes * [...] He is compliant with metformin, takes about 6084-0994 mg daily. He hasn't followed up with [...] up; ARNIE GIBSON MD; Clinic Appointment Location[facility] Lab Draw Appt Request Arm Draw or [...] ARNIE GIBSON MD; Clinic Appointment Location: [facility] Draw Appt Request Arm Draw or [...] MD LAB BLOOD ORDERABLES Final Resul t [facility] [address] [place] [address] * (ABNORMAL) Comprehensive metabolic panel (08/07/2019 11:11 [...] HOSPITAL ALT 103(H) 7 - 55 Units/L [facility] AST 51(H) 10 - 50 Units/L [facility] Blood specimen (specimen) 08/07/2019 11:11 AM CDT 08/07/2019 11:11 AM CDT us Eneida Gibson MD LAB BLOOD ORDERABLES Final Resul t [facility] [address] [place] [address] * Beta-CrossLaps (Beta-CTx) (08/07/2019 10:55 AM CDT) Beta-CTx 359 pg/mL [facility] Comment: REFERENCE VALUE [phone] (18-30 y) 93-630 (31-50 y) 35-836 (51-70 y) Not established (>70 y) ADDITIONAL INFORMATION This test has been modified from the procurement coordinator's instructions. Its performance characteristics were determined by [facility] in a manner consistent with CLIA requirements. This test has not been cleared or approved by the U.S. Food and Drug Administration. Test Performed by: [facility] [address] [place] [address] Robot Technician: Neftaly Keita M.D. Ph.D.; CLIA# [id number] Blood specimen (specimen) 08/07/2019 10:55 AM CDT 08/07/2019 11:23 AM CDT us Eneida Gibson MD LAB BLOOD ORDERABLES Final Resul t Performing Organization Address [facility] Phone Number [address] [address] * PTH (08/07/2019 10:55 AM CDT) PTH 54 15 - 65 pg/mL [facility] Blood specimen (specimen) 08/07/2019 10:55 AM CDT 08/07/2019 11:08 AM CDT Result [facility] us Eneida Gibson MD LAB BLOOD ORDERABLES Final Resul t Performing Organization Address [facility] Phone Number [address] [address] * (ABNORMAL) Hemoglobin A1c (08/07/2019 10:55 AM [...] children were not included. ?? (Diabetes Care 31:2839-7165, 2008). ??The eAG is not equivalent to a fasting glucose. Blood specimen (specimen) 08/07/2019 10:55 AM CDT 08/07/2019 11:10 AM CDT us Eneida Gibson MD LAB BLOOD ORDERABLES Final Resul t Performing Organization Address [facility] de Phone Number [address] [address] * Dexa Axial Skeleton Bone Density 1 or 2 Site (08/07/2019 10:34 AM CDT) Anatomical Region Laterality Modality Body N/A Radiographic Tiffany ging Narrative 08/10/2019 12:29 AM CDT Patient Name: Brady Jones Date of : 1965 Date of scan: 08/07/2019 Bone mineral density was performed on a HoloVonage Discovery Densitometer. ?? Machine Cross-calibration and Precision [...] by the International Society of Clinical Densitometry. [id number] us Eneida Gibson MD IMG DXA PROCEDURES [...] left thigh 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 half-way current use of anticoagulant documented in this [...] insulin ([facility]) Inject 3-5 Units under the skin 3 (three) times a day before meals INJECT 3 TO 5 UNITS UNDER THE SKIN THREE TIMES/DAY BEFORE MEALS. 03/05/2019 05/29/2019 polyethylene glycol (COLYTE) 240-22.72-6.72 -5.84 gram solution as directed 04/18/2019 05/29/2019 predniSONE (DELTASONE) 20 mg tabletIndications:AML (acute myeloid leukemia) in remission (HCC),Etklh-jewexe-wjvd disease (HCC) Take 1 tablet (20 mg [...] documented as of this encounter Care Teams Frozen Food Selector Relationship Specialty Start Date End Date Kirt Lindsay DO PCP - General 05/02/17 11/22/20 documented as of this encounter
--- OUTSIDE RECORDS SUMMARY | 2024-11-22 13:07 | XMS_ITS | Encounter Summary ---
Author Organization [facility] Address [address] [place] [address] Phone Care Team Providers Care Pad Machine Feeder Name Role Phone Kirt Lindsay DO Primary Care Provider +1- [phone] Encounter Details Date Type Department Care Team (Late st Contact Info) Description 07/01/2019 Documentation [facility] Oncology [address] 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
--- OUTSIDE RECORDS SUMMARY | 2024-11-22 13:07 | XMS_ITS | Encounter Summary ---
Author Organization [facility] Address [address] [place] [address] Phone Care Team Providers Care Industrial Conveyor Belt Repairer Name Role Phone Kirt Lindsay DO Primary Care Provider +1- [phone] Encounter Details Date Type Department Care Team (Latest Contact Info) Description 02/11/2019 Orders Only [facility] Oncology [address] [facility] 7th [place] [address] [place] [address] Eneida Gibson MD [address] [place] [address] Pure hypercholesterolemia (Primary Dx); AML (acute myeloid leukemia) in remission (CMS/HCC); Type 2 diabetes mellitus with hyperglycemia, with long-term current use of insulin (CMS/HCC); Rqyre-nsibpm-mfrh disease (CMS/HCC); 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[facility]) Social History Tobacco Use Types Packs/Day Years Used Date Smoking Tobacco: Every Day Smokeless Tobacco: Never Comments:Pt not interested i n smoking cessation program Sex and Gender Information Value Date Recorded Sex Assigned at Not on file Legal Sex Male 10:48 AM PAINTER HAND Gender Identity Not on file Sexual Orientation Not on file documented as of this encounter Ordered Prescriptions Prescription Sig Dispense Quantity Refills Last Filled Start Date End Date atorvastatin (LIPITOR) 40 mg tabletIndications:AML (acute myeloid leukemia) in remission (HCC),Type 2 diabetes mellitus with hyperglycemia, with long-term current use of insulin (HCC),Bsijf-cixcvo-hnil disease (HCC),H/O allogeneic bone marrow transplant (HCC),Pure [...] with long-term current use of insulin (HCC) Kdsdz-ckausn-tvjl disease (HCC) H/O allogeneic bone marrow transplant (HCC) documented in this encounter Discontinued Medications Medication Sig Discontinue Reason Start Date End Da te atorvastatin (LIPITOR) 40 mg tabletIndications:AML (acute myeloid leukemia) in remission (HCC),Type 2 diabetes mellitus with hyperglycemia, with long-term current use of insulin (HCC),Bxbyg-xdihmn-cfqs disease (HCC),H/O allogeneic bone marrow transplant (HCC) Take 1 tablet (40 mg total) by mouth daily. Reorder 07/28/2018 02/11/2019 documented as of this encounter 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 Care Teams Industrial Conveyor Belt Repairer Relationship Specialty Start Date End Date Kirt Lindsay DO PCP - General 05/02/17 11/22/20 documented as of this encounter
--- OUTSIDE RECORDS SUMMARY | 2024-11-22 13:07 | XMS_ITS | Encounter Summary ---
Author Organization [facility] Address [address] [place] [address] Phone Care Team Providers Care Carpenter General Name Role Phone Kirt Lindsay DO Primary Care Provider +1- [phone] Josué Del Valle MD PhD Unavailable +[phone] Halie Khan MD Primary Care Provider +1- [phone] Kirt Lindsay DO Primary Care Provider +- [phone] Tay Charlton MD Unavailable [phone] Halie Khan MD Unavailable [phone] StarksAnt goldman MD Unavailable +- [phone] Dillon Calreed Dorado DO Unavailable [phone] Halie Khan MD Unavailable [phone] Wilfred Kinsey MD Unavailable Encounter Details Date [...] on file Legal Sex Male 10:48 AM 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 Lissy Johnson RN +AFB stain 06/17/2024 06/17/2024 06/18/2024 10:45 AM CDT C. 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 07/23/2024 07/24/2024 07/24/2024 4:49 AM CDT documented as of this encounter Care Teams Carpenter General Relationship Specialty Start Date End Date Kirt Lindsay DO PCP - General 05/02/17 11/22/20 Halie Khan MD [address] [address] PCP - General Critical Care Med 11/23/20 02/01/21 Kirt Lindsay DO PCP - General Internal Medicine 02/02/21 Josué Del Valle MD PhD Medical Oncologist/Community Nurse Medical Oncology 08/26/19 Tay Charlton MD [address] [address] Consulting Physician Gastroenterology 12/03/21 06/11/23 Halie Khan MD [address] [address] Consulting Physician Pulmonary Disease 12/12/21 3 Ant Starks MD [address] [address] Consulting Physician Transplant Hepatology 01/12/22 Cal Carranza DO [address] [address] Implant Coordinator Internal Medicine 06/12/23 Halie Khan MD [address] [facility] [address] [place] [address] Accounts Payable Analyst Critical Care Med 06/12/23 Wilfred Kinsey MD [address] [facility] [address] [place] [address] Consulting Physician Gastroenterology 03/02/24 documented as of this encounter
--- OUTSIDE RECORDS SUMMARY | 2024-11-22 13:07 | XMS_ITS | Encounter Summary ---
Author Organization [facility] Address [address] [place] [address] Phone Care Team Providers Care Public Relations Professional Name Role Phone Kirt Lindsay DO Primary Care Provider +1- [phone] Encounter Details Date Type Department Care Team (Late st Contact Info) Description 03/05/2019 Orders Only [facility] Oncology [address] [facility] Advanced [facility] 7th [place] [address] [place] [address] Eneida Gibson MD [address] [place] [address] Type 2 diabetes mellitus with hyperosmolarity without coma, with long-term current use of insulin ([facility]) (Primary Dx) Social History Tobacco Use Types Packs/Day Years Used Date Smoking Tobacco: Every Day Smokeless Tobacco: Never Comments:Pt not interested i n smoking cessation program Sex and Gender Information Value Date Recorded Sex Assigned at Not on file Legal Sex Male 10:48 AM CULINARY ARTIST Gender Identity Not on file Sexual [...] as of this encounter Care Teams Public Relations Professional Relationship Specialty Start Date End Date Kirt Lindsay DO PCP - General 05/02/17 11/22/20 documented as of this encounter
--- OUTSIDE RECORDS SUMMARY | 2024-11-22 13:07 | XMS_ITS | Encounter Summary ---
Author Organization [facility] Address [address] [place] [address] Phone Care Team Providers Care Weed Science Research Technician Name Role Phone Kirt Lindsay DO Primary Care Provider +1- [phone] Encounter Details Date Type Department Care Team (Late st Contact Info) Description 02/25/2019 Orders Only [facility] Oncology [address] [place] [address] Eneida Gibson MD [address] [place] [address] Type 2 diabetes mellitus with hyperosmolarity without coma, with long-term current use of insulin ([facility]/HCC) (Primary Dx) Social History Tobacco Use Types Packs/Day Years Used Date Smoking Tobacco: Every Day Smokeless Tobacco: Never Comments:Pt not interested i n smoking cessation program Sex and Gender Information Value Date Recorded Sex Assigned at Not on file Legal Sex Male 10:48 AM MOLDER LABELS Gender Identity Not on file Sexual Orientation [...] documented as of this encounter Care Teams Weed Science Research Technician Relationship Specialty Start Date End Date Kirt Lindsay DO PCP - General 05/02/17 11/22/20 documented as of this encounter
--- OUTSIDE RECORDS SUMMARY | 2024-11-22 13:07 | XMS_ITS | Encounter Summary ---
Author Organization [facility] Address [address] [place] [address] Phone Care Team Providers Care Set Up Machinist Name Role Phone Kirt Lindsay DO Primary Care Provider +1- [phone] Encounter Details Date Type Department Care Team (Late st Contact Info) Description 01/27/2019 Orders Only [facility] Oncology [address] [facility] 7th [place] [address] [place] [address] Eneida Gibson MD [address] [place] [address] Type 2 diabetes mellitus with hyperosmolarity without [...] on file Legal Sex Male 10:48 AM CANINE ENFORCEMENT OFFICER Gender Identity Not on file Sexual [...] documented as of this encounter Care Teams Set Up Machinist Relationship Specialty Start Date End Date Kirt Lindsay DO PCP - General 05/02/17 11/22/20 documented as of this encounter
--- OUTSIDE RECORDS SUMMARY | 2024-11-22 13:07 | XMS_ITS | Encounter Summary ---
Author Organization [facility] Address [address] [place] [address] Phone Care Team Providers Care Entry Level Machine Operator Name Role Phone Kirt Lindsay DO Primary Care Provider +1- [phone] Encounter Details Date Type Department Care Team (Late st Contact Info) Description 08/06/2019 Orders Only [facility] Oncology [address] [facility] Advanced Medicine 7th [place] [address] [place] [address] Eneida Gibson MD [address] [place] [address] Osteopenia, unspecified location (Primary Dx) Social History Tobacco Use Types Packs/Day Years Used Date Smoking Tobacco: Every Day Smokeless Tobacco: Never Comments:Pt not interested i n smoking cessation program Sex and Gender Information Value Date Recorded Sex Assigned at Not on file Legal Sex Male 10:48 AM MAT REPAIRER Gender Identity Not on file Sexual [...] documented as of this encounter Care Teams Entry Level Machine Operator Relationship Specialty Start Date End Date Kirt Lindsay DO PCP - General 05/02/17 11/22/20 documented as of this encounter
--- OUTSIDE RECORDS SUMMARY | 2024-11-22 13:07 | XMS_ITS | Encounter Summary ---
Author Organization [facility] Address [address] [place] [address] Phone Care Team Providers Care Application Consultant Name Role Phone Kirt Lindsay DO Primary Care Provider +1- [phone] Encounter Details Date Type Department Care Team (Late st Contact Info) Description 01/05/[address] [facility] Oncology [address] [facility] Advanced Medicine 7th [place] [address] [place] [address] Eneida Gibson MD [address] [place] [address] Vitamin D deficiency (Primary Dx); Osteopenia, unspecified location Social History Tobacco Use Types Packs/Day Years Used Date Smoking Tobacco: Every Day Smokeless Tobacco: Never Comments:Pt not interested i n smoking cessation program Sex and Gender Information Value Date Recorded Sex Assigned at Not on file Legal Sex Male 10:48 AM SERVICE CENTER SPECIALIST Gender Identity Not on file Sexual [...] documented as of this encounter Care Teams Application Consultant Relationship Specialty Start Date End Date Kirt Lindsay DO PCP - General 05/02/17 11/22/20 documented as of this encounter
--- OUTSIDE RECORDS SUMMARY | 2024-11-22 13:07 | XMS_ITS | Encounter Summary ---
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); Type 2 diabetes mellitus with hyperosmolarity without coma, with long-term current use of insulin (CMS/HCC); Cugkt-jhvtzg-ndly disease (CMS/HCC); H/O allogeneic bone marrow transplant (CMS/HCC); Type 2 diabetes mellitus with hyperglycemia, with long-term current use of insulin (CMS/HCC) Social History Tobacco Use Types Packs/Day Years Used Date Smoking Tobacco: Every Day Smokeless Tobacco: Never Comments:Pt not interested i n smoking cessation program Sex and Gender Information Value Date Recorded Sex Assigned at Not on file 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
--- OUTSIDE RECORDS SUMMARY | 2024-11-22 13:07 | XMS_ITS | Encounter Summary ---
Author Organization [facility] Address [address] [facility] [address] [place] [address] Phone Care Team Providers Care Chief Specialist Leed Name Role Phone Kirt Lindsay DO Primary Care Provider +1- [phone] Reason for Referral * Consultation (Routine) - Closed Specialty Diagnoses / Procedures Referred By Ana M anderson Referred To Contact Diabetes and Nutrition Services Diagnoses Type 2 diabetes mellitus with hyperosmolarity without coma, with long-term current use of insulin (HCC) Eneida Gibson MD Phone: tel: [place] [facility] [address] [address] Referral ID Status Reason Start Date Expiration Date V isits Requested Visits Authorized [id number] Closed Specialty Services Required 11/28/2018 06/08/2020 10 10 Question Answer [id number] Yes DNRFR Individual Self Management (DSME/T) Follow-Up DSME/T DNCNRFR All 10 DSMT content areas as appropriate DNMNTRFR Annual follow-up MNT Injectable Medications Yes Medication Name Medication Name Amount Amount Frequency Frequency Route Route [id number] Other - none DUMPER Encounter Details Date Type Department Care Team (Late st Contact Info) Description 11/28/[address] 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
--- OUTSIDE RECORDS SUMMARY | 2024-11-22 13:07 | XMS_ITS | Encounter Summary ---
Author Organization [facility] Address [address] [place] [address] Phone Care Team Providers Care Rail Bonder Name Role Phone Kirt Lindsay DO Primary Care Provider +1- [phone] Encounter Details Date Type Department Care Team (Late st Contact Info) Description 12/12/2018 Orders Only [facility] Oncology [address] [facility] Advanced Medicine 7th [place] [address] [place] [address] Eneida Gibson MD [address] [place] [address] Social History Tobacco Use Types Packs/Day Years Used Date Smoking Tobacco: Every Day Smokeless Tobacco: Never Comments:Pt not interested i n smoking cessation program Sex and Gender Information Value Date Recorded Sex Assigned at Not on file 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
--- OUTSIDE RECORDS SUMMARY | 2024-11-22 13:07 | XMS_ITS | Encounter Summary ---
Author Organization [facility] Address [address] [place] [address] Phone Care Team Providers Care Jigsawyer Name Role Phone Kirt Lindsay DO Primary Care Provider +1- [phone] Encounter Details Date Type Department Care Team (Late st Contact Info) Description 05/29/2019 10:45 AM CDT Lab [facility] Oncology [address] 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 Gender Identity Not on file Sexual Orientation Not on file documented as of this encounter Plan of Treatment Not on file documented as of this encounter Procedures Procedure Name Priority Date/Time Associated Diagnosis Comments VITAMIN D 25 HYDROXY Routine 05/29/2019 11:18 AM CDT Osteopenia, unspecified location Type 2 diabetes mellitus with hyperglycemia, with long-term current use of insulin ([facility]) TSH Routine 05/29/2019 11:18 AM CDT Osteopenia, unspecified location Type 2 diabetes mellitus with hyperglycemia, with long-term current use of insulin ([facility]) HEMOGLOBIN A1C Routine 05/29/2019 11:18 AM CDT Osteopenia, unspecified location Type 2 diabetes mellitus with hyperglycemia, with long-term current use of insulin ([facility]) LIPID PANEL Routine 05/29/2019 11:18 AM CDT Osteopenia, unspecified location Type 2 diabetes mellitus with hyperglycemia, with long-term current use of insulin ([facility]) COMPREHENSIVE METABOLIC PANEL STAT 05/29/2019 11:18 AM CDT Osteopenia, unspecified location Type 2 diabetes mellitus with hyperglycemia, with long-term current use of insulin ([facility]) documented in this encounter Results * (ABNORMAL) Comprehensive metabolic panel (05/29/2019 11:18 AM CDT) Pathologist [facility] Sodium 134(L) 135 - 145 mmol/L [facility] Potassium, pl 4.9 3.3 - 4.9 mmol/L [facility] Comment:Hemolyzed; (+++); po tassium value may be falsely elevated by as much as 0.6 - 1.0 mmol/L. Suggest redraw and reanalysis. Chloride 94(L) 97 - 110 mmol/L [facility] CO2 28 22 - 32 mmol/L [facility] Anion gap 12 2 - 15 mmol/L [facility] BUN 19 8 - 25 mg/dL [facility] Creatinine 0.79(L) 0.80 - 1.30 mg/dL [facility] Glucose 331(H) 70 - 199 mg/dL [facility] Comment: Interpretive Data Fasting glucose >/= [...] 2017. Calcium 9.5 8.5 - 10.3 mg/dL [facility] Bilirubin, total 0.4 0.1 - 1.2 mg/dL [facility] Protein, pl 6.7 6.5 - 8.5 g/dL [facility] Albumin 3.8 3.5 - 5.0 g/dL [facility] Alk phos 104 40 - 130 Units/L [facility] ALT 35 7 - 55 Units/L [facility] AST 32 10 - 50 Units/L [facility] Comment:Hemolyzed; result ma y be falsely elevated. Blood specimen (specimen) 05/29/2019 11:18 AM CDT 05/29/2019 11:45 AM CDT Eneida Gibson MD LAB BLOOD ORDERABLES Final Resul t Performing Organization Address City/[facility]/ZIP Co de Phone Number [facility] [place] [place] [address] * (ABNORMAL) Vitamin D 25 hydroxy (05/29/2019 11:18 AM CDT) Vitamin D 25-OH 14(L) 30 - 80 ng/mL [facility] Blood specimen (specimen) 05/29/2019 11:18 AM CDT 05/29/2019 11:45 AM CDT Eneida Gibson MD LAB BLOOD ORDERABLES Final Resul t [facility] [place] [place] [address] * (ABNORMAL) Hemoglobin A1c (05/29/2019 11:18 AM CDT) Hgb A1C 14.7(H) 4.0 - 5.6 % [facility] Estimated Average Glucose 375 mg/dL [facility] Comment: The ADA recommends reporting an estimated Average Glucose (eAG) with all Hemoglobin A1c results using the equation derived from a study of 507 normal and diabetic adults. ??Minority populations were underrepresented and children were not included. ?? (Diabetes Care 31:4454-4930, 2008). ??The eAG is not equivalent to a fasting glucose. Blood specimen (specimen) 05/29/2019 11:18 AM CDT 05/29/2019 11:45 AM CDT Eneida Gibson MD LAB BLOOD ORDERABLES Final Resul t Performing Organization Address [facility] de Phone Number [facility] [place] [address] * TSH (05/29/2019 11:18 AM CDT) Thyroid Stimulating Hormone 1.02 0.30 - 4.20 mcIUnit/mL [facility] Blood specimen (specimen) 05/29/2019 11:18 AM CDT 05/29/2019 11:45 AM CDT Result [facility] Eneida Gibson MD LAB BLOOD ORDERABLES Final Resul t Performing Organization Address [facility] de Phone Number [facility] [place] [address] * (ABNORMAL) Lipid panel (05/29/2019 11:18 AM CDT) Cholesterol 193 30 - 199 mg/dL [facility] Comment: Interpretive Data Ages < or [...] on 2018. Triglycerides 266(H) <=149 mg/dL [facility] Comment: Interpretive [...] on 2018. HDL 74 >=40 mg/dL [facility] Comment: Interpretive [...] 2018. LDL, calculated 66 <=129 mg/dL [facility] Comment: Interpretive [...] revised on 2018. Non-HDL Cholesterol 119 mg/dL [facility] Comment: Interpretive Data Ages < or [...] last revised on 2018. 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
--- OUTSIDE RECORDS SUMMARY | 2024-11-22 13:07 | XMS_ITS | Encounter Summary ---
Author Organization [facility] Address [address] [place] [address] Phone Care Team Providers Care Casino Beverage Server Name Role Phone Kirt Lindsay DO Primary Care Provider +1- [phone] Encounter Details Date Type Department Care Team (Late st Contact Info) Description 06/02/2019 Orders Only [facility] Oncology [address] [place] [address] Eneida Gibson MD [address] [place] [address] Type 2 diabetes mellitus with hyperosmolarity without coma, with long-term current use of insulin (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
--- OUTSIDE RECORDS SUMMARY | 2024-11-22 13:07 | XMS_ITS | Encounter Summary ---
Author Organization [facility] Address [address] [place] [address] Phone Care Team Providers Care Patient Accounts Clerk Name Role Phone Kirt Lindsay DO Primary Care Provider +1- [phone] Encounter Details Date Type Department Care Team (Late st Contact Info) Description 08/07/2019 10:30 AM CDT Lab 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 Gender Identity Not on file Sexual [...] coma, with long-term current use of insulin ([facility]) Osteopenia, unspecified location PTH Routine 08/07/2019 10:55 AM CDT Type 2 diabetes mellitus with hyperosmolarity without coma, with long-term current use of insulin (CMS/HCC) Osteopenia, unspecified location HEMOGLOBIN A1C Routine 08/07/2019 10:55 AM CDT Type 2 diabetes mellitus with hyperosmolarity without coma, with long-term current use of insulin ([facility]) Osteopenia, unspecified location documented in this encounter Results * (ABNORMAL) Comprehensive metabolic panel (08/07/2019 11:11 AM CDT) Sodium 140 135 - 145 mmol/L [facility] Potassium, pl 4.3 3.3 - 4.9 mmol/L [facility] Chloride 97 97 - 110 mmol/L [facility] CO2 29 22 - 32 mmol/L [facility] Anion gap 14 2 - 15 mmol/L [facility] BUN 26(H) 8 - 25 mg/dL [facility] Creatinine 0.82 0.80 - 1.30 mg/dL [facility] Glucose 388(H) 70 - 199 mg/dL [facility] Comment: Interpretive Data Fasting glucose [...] 2017. Calcium 9.4 8.5 - 10.3 mg/dL [facility] Bilirubin, total 0.4 0.1 - 1.2 mg/dL [facility] Protein, pl 6.5 6.5 - 8.5 g/dL [facility] Albumin 4.0 3.5 - 5.0 g/dL [facility] Alk phos 121 40 - 130 Units/L [facility] ALT 103(H) 7 - 55 Units/L [facility] AST 51(H) 10 - 50 Units/L [facility] Blood specimen (specimen) 08/07/2019 11:11 AM CDT 08/07/2019 11:11 AM CDT Eneida Gibson MD LAB BLOOD ORDERABLES Final Resul t Performing Organization Address [facility] de Phone Number [address] [address] * (ABNORMAL) Vitamin D 25 hydroxy (08/07/2019 11:11 AM CDT) Pathologist [facility] Vitamin D 25-OH 27(L) 30 - 80 ng/mL [facility] Blood specimen (specimen) 08/07/2019 11:11 AM CDT 08/07/2019 11:11 AM CDT Eneida Gibson MD LAB BLOOD ORDERABLES Final Resul t Performing Organization Address [facility] Co de Phone Number [address] [address] * (ABNORMAL) Hemoglobin A1c (08/07/2019 10:55 AM CDT) Hgb A1C 14.2(H) 4.0 - 5.6 % [facility] Estimated Average Glucose 361 mg/dL [facility] Comment: The ADA recommends reporting an estimated Average Glucose (eAG) with all Hemoglobin A1c results using the equation derived from a study of 507 normal and diabetic adults. ??Minority populations were underrepresented and children were not included. ?? (Diabetes Care 31:5260-6545, 2008). ??The eAG is not equivalent to a fasting glucose. Blood specimen (specimen) 08/07/2019 10:55 AM CDT 08/07/2019 11:10 AM CDT Eneida Gibson MD LAB BLOOD ORDERABLES Final Resul t Performing Organization Address [facility] de Phone Number [address] [address] * PTH (08/07/2019 10:55 AM CDT) PTH 54 15 - 65 pg/mL [facility] Blood specimen (specimen) 08/07/2019 10:55 AM CDT 08/07/2019 11:08 AM CDT Eneida Gibson MD LAB BLOOD ORDERABLES Final Resul t Performing Organization Address [facility] de Phone Number [facility] [address] [place] [address] * Beta-CrossLaps (Beta-CTx) (08/07/2019 10:55 AM CDT) Pathologist [facility] Beta-CTx 359 pg/mL [facility] Comment: REFERENCE VALUE [phone] (18-30 y) [phone] (31-50 y) [phone] (51-70 y) Not established (>70 y) ADDITIONAL INFORMATION This test has been modified from the cartoonist special effects's instructions. Its performance characteristics were determined by [facility] in a manner consistent with CLIA requirements. This test has not been cleared or approved by the U.S. Food and Drug Administration. Test Performed by: [facility] [address] [place] [address] Charrer: Neftaly Keita M.D. Ph.D.; CLIA# [id number] Blood specimen (specimen) 08/07/2019 10:55 AM CDT 08/07/2019 11:23 AM CDT us Eneida Gibson MD LAB BLOOD ORDERABLES Final Resul t [facility] [address] [place] [address] documented in this encounter Visit Diagnoses Diagnosis [...] documented as of this encounter Care Teams Patient Accounts Clerk Relationship Specialty Start Date End Date Kirt Lindsay DO PCP - General 05/02/17 11/22/20 documented as of this encounter
--- OUTSIDE RECORDS SUMMARY | 2024-11-22 13:07 | XMS_ITS | Encounter Summary ---
Author Organization [facility] Address [address] [place] [address] Phone Care Team Providers Care Clinical Operations Leader Name Role Phone Kirt Lindsay DO Primary Care Provider +1- [phone] Encounter Details Date Type Department Care Team (Late st Contact Info) Description 07/31/2019 Orders Only [facility] Oncology [address] [facility] Advanced Medicine 7th [place] [address] [place] [address] Eneida Gibson MD [address] [place] [address] Type 2 diabetes mellitus with hyperosmolarity without coma, with long-term current use of insulin ([facility]) (Primary Dx) Social History Tobacco Use Types Packs/Day Years Used Date Smoking Tobacco: Every Day Smokeless Tobacco: Never Comments:Pt not interested i n smoking cessation program Sex and Gender Information Value Date Recorded Sex Assigned at Not on file 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
--- OUTSIDE RECORDS SUMMARY | 2024-11-22 13:07 | XMS_ITS | Encounter Summary ---
Author Organization [facility] Address [address] [place] [address] Phone Care Team Providers Care Business Continuity Planner Name Role Phone Kirt Lindsay DO Primary Care Provider +1- [phone] Encounter Details Date Type Department Care Team (Late st Contact Info) Description 05/29/2019 Orders Only [facility] Oncology [address] [facility] Medicine 7th [place] [address] [place] [address] Eneida Gibson MD [address] [place] [address] Type 2 diabetes mellitus with hyperosmolarity without coma, with long-term current use of insulin ([facility]) (Primary Dx) Social History Tobacco Use Types Packs/Day Years Used Date Smoking Tobacco: Every Day Smokeless Tobacco: Never Comments:Pt not interested i n smoking cessation program Sex and Gender Information Value Date Recorded Sex Assigned at Not on file 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
--- OUTSIDE RECORDS SUMMARY | 2024-11-22 13:07 | XMS_ITS | Encounter Summary ---
Author Organization [facility] Address [address] [place] [address] Phone Care Team Providers Care Manager Study Name Role Phone Kirt Lindsay DO Primary Care Provider +1- [phone] Encounter Details Date Type Department Care Team (Late st Contact Info) Description 07/01/2019 Orders Only [facility] Oncology [address] [facility] Advanced Medicine 7th [place] [address] [place] [address] Eneida Gibson MD [address] [place] [address] Type 2 diabetes mellitus with hyperosmolarity without coma, with long-term current use of insulin ([facility]) (Primary Dx) Social History Tobacco Use Types Packs/Day Years Used Date Smoking Tobacco: Every Day Smokeless Tobacco: Never Comments:Pt not interested i n smoking cessation program Sex and Gender Information Value Date Recorded Sex Assigned at Not on file 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
--- OUTSIDE RECORDS SUMMARY | 2024-11-22 13:07 | XMS_ITS | Encounter Summary ---
Author Organization [facility] Address [address] [place] [address] Phone Care Team Providers Care Blankbook Forwarder Name Role Phone Kirt Lindsay DO Primary Care Provider +1- [phone] Encounter Details Date Type Department Care Team (Late st Contact Info) Description 06/02/2019 Documentation [facility] Oncology [address] [place] [address] Penny Valero, RN Social History Tobacco Use Types Packs/Day Years Used Date Smoking Tobacco: Every Day Smokeless Tobacco: Never Comments:Pt not interested i n smoking cessation program Sex and Gender Information Value Date Recorded Sex Assigned at Not on file 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 Also [...] documented as of this encounter Care Teams Blankbook Forwarder Relationship Specialty Start Date End Date Kirt Lindsay DO PCP - General 05/02/17 11/22/20 documented as of this encounter
--- OUTSIDE RECORDS SUMMARY | 2024-11-22 13:08 | XMS_ITS | Encounter Summary ---
Author Organization [facility] Address [address] [place] [address] Phone Care Team Providers Care Optical Effects Camera Operator Name Role Phone Kirt Lindsay DO Primary Care Provider +1- [phone] Encounter Details Date Type Department Care Team (Late st Contact Info) Description 2018 10:00 AM CASE MAKING 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 Office Visit [facility] Bone Marrow Transplant [address] [facility] Advanced Medicine 7th Floor, [place] [address] Josué Del Valle MD PhD [address] DIV IM BONE MARROW TRANSPLANT, [address] [place] [address] 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); H/O allogeneic bone marrow transplant ([facility]/HCC); Xeuij-jehpcr-jmko disease (CMS/HCC); Type 2 diabetes mellitus with hyperglycemia, with long-term current use of insulin ([facility]/HCC) Social History Tobacco Use Types Packs/Day Years Used Date Smoking Tobacco: Every Day Smokeless Tobacco: Never Comments:Pt not interested i n smoking cessation program Sex and Gender Information Value Date Recorded Sex Assigned at Not on file Legal Sex Male 10:48 AM CASE MAKING 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 Gender Identity Not on file Sexual Orientation Not on file documented as of this encounter Last Filed Vital Signs Vital Sign Reading Time Taken Comments Blood Pressure 143/67 2018 10:03 AM CASE MAKING 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 Pulse 69 2018 10:03 AM CASE MAKING 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 Temperature 35.9 ??C (96.6 ??F) 2018 10:[address] Respiratory Rate 18 2018 10:03 AM CASE MAKING 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 Oxygen Saturation 96% 2018 10:03 AM CASE MAKING 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 Inhaled Oxygen Concentration - - Weight 70 kg (154 lb 6.4 oz) 2018 10:03 AM CASE MAKING 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 Height - - Body Mass Index 21.98 [...] x3. 2. Decitabine [place] [address] protocol. 3. 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 TRANSPLANT HISTORY: Status post an allogeneic transplant with busulfan and Cytoxan on the [facility] allogeneic study with hissister, 08/27 [...] transplant almost 10 years ago. 2. Chronic yfpyn-ckbvvq-gmvk disease which is extensive involving his skin, [...] Del Valle M.D., Ph.D. Chief, Division of Oncology/machine slat basket maker Section of BMT & Leukemia CHRISTOPHER/argentina MAKING 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 documented in this encounter Plan of Treatment Not on file documented as of this encounter Visit Diagnoses Diagnosis AML (acute myeloid leukemia) in remission (HCC)- Primary H/O allogeneic bone marrow transplant (HCC) Mfqzj-tjdcrn-nrks disease (HCC) Type 2 diabetes mellitus with [...] mg tabletIndications:AML (acute myeloid leukemia) in remission (HCC),Owqme-feflcx-wjur disease (HCC),H/O allogeneic bone marrow transplant (HCC),Type 2 diabetes mellitus with hyperglycemia, with long-term current use of insulin (HCC) 07/17/2018 2018 mycophenolate mofetil (CELLCEPT) 500 mg tabletIndications:AML (acute myeloid leukemia) in remission (HCC),Ubpay-cuoxkn-gnym disease (HCC) Take 2 tablets (1,000 mg total) by mouth 2 (two) times a day. 07/17/2018 2018 azithromycin (ZITHROMAX) 250 mg tabletIndications:AML (acute myeloid leukemia) in remission (HCC),Srfhz-cpfnor-xxus disease (HCC),H/O allogeneic bone marrow transplant (HCC),Type 2 diabetes mellitus with hyperglycemia, with long-term current use of insulin (HCC) 07/09/2018 2018 mycophenolate mofetil (CELLCEPT) 500 mg tablet Reorder 08/24/2018 018 predniSONE (DELTASONE) 10 mg tabletIndications:AML (acute myeloid leukemia) in remission (HCC),Wtxgj-tkjjkn-bcny disease (HCC) Take 4 tablets (40 mg [...] documented as of this encounter Care Teams Optical Effects Camera Operator Relationship Specialty Start Date End Date Kirt Lindsay DO PCP - General 05/02/17 11/22/20 documented as of this encounter
--- OUTSIDE RECORDS SUMMARY | 2024-11-22 13:08 | XMS_ITS | Encounter Summary ---
Author Organization [facility] Address [address] [place] [address] Care Team Providers Care Shell Coremaker Name Role Phone Kirt Lindsay DO Primary Care Provider +1- [phone] Reason for Referral * MRI/CAT/PET Scan (Routine) - Closed Specialty Diagnoses / Procedures Referred By Contac justin Referred To Contact Radiology Diagnoses AML (acute myeloid leukemia) in remission (HCC) H/O allogeneic bone marrow transplant (HCC) Uwqon-vvgurd-mypt disease (HCC) Procedures CT chest without contrast Narcisa Kilgore NP Phone: tel: fax: [address] [address] Referral ID Status Reason Start Date Expiration Date Visits Re quested Visits Authorized [id number] Closed 10/08/2018 04/18/2020 1 1 CORE OPERATOR Reason for Visit * MRI/CAT/PET Scan (Routine) - Closed Specialty Diagnoses / Procedures Referred By Contac t Referred To Contact Radiology Diagnoses AML (acute myeloid leukemia) in remission (HCC) H/O allogeneic bone marrow transplant (HCC) Qofat-jtlrmo-wekm disease (HCC) Procedures CT chest without contrast Narcisa Kilgore NP Phone: tel: fax: [facility] [address] [facility] [place] [address] Referral ID Status Reason Start Date Expiration Date Visits Re quested Visits Authorized [id number] Closed 10/08/2018 04/18/2020 1 1 Encounter Details Date Type Department Care Team (Late st Contact Info) Description 2018 1:25 PM SEED CORE OPERATOR - 2018 11:59 PM SEED CORE OPERATOR Hospital Encounter [facility] [address] [place] [address] Narcisa Kilgore NP [address] DIV IM BONE MARROW TRANSPLANT, [address] [place] [address] AML (acute myeloid leukemia) in remission ([facility]); H/O allogeneic bone marrow transplant ([facility]); Bcjuk-jnyusl-ukqh disease ([facility]) Discharge Disposition: Discharge to home or self care Social History Tobacco Use Types Packs/Day Years Used Date Smoking Tobacco: Every Day Smokeless Tobacco: Never Comments:Pt not interested i n smoking cessation program Sex and Gender Information Value Date Recorded Sex Assigned at Not on file Legal Sex Male 10:48 AM SEED CORE OPERATOR Gender Identity Not on file Sexual [...] Read Routine (OP Routine) 2018 1:54 PM SEED CORE OPERATOR AML (acute myeloid leukemia) in remission (CMS/HCC) H/O allogeneic bone marrow transplant (CMS/HCC) Wykei-qkduaz-uzio disease (CMS/HCC) documented in this encounter Results * CT chest without contrast (2018 1:54 PM SEED CORE OPERATOR) Anatomical Region Laterality Modality Body N/A Computed Tomogra phy 2018 2:20 PM SEED CORE OPERATOR Impressions 2018 2:20 PM SEED CORE OPERATOR 1. ??Resolution of right lower lobe consolidation. 2. ??Moderate to severe upper lobe predominant centrilobular emphysema with right upper lobe scarring. Electronically signed by: Dallas Valiente M.D. Narrative 2018 2:20 PM SEED CORE OPERATOR EXAMINATION: CT of the chest without contrast. TECHNIQUE: Computed tomographic images of the chest were obtained without intravenous contrast according to standard protocol. HISTORY:AML in remission status post bone marrow transplant with cetsm-ixfgmb-zddv disease. Comparison:CT dated 12/27/2017. ?? FINDINGS:There is [...] remission status post bone marrow transplant with xxmdn-xpmuxw-yjfm disease. Comparison:CT dated 12/27/2017. FINDINGS:There is unchanged [...] (HCC) H/O allogeneic bone marrow transplant (HCC) Egdwv-gepqrb-rgrn disease (HCC) documented in this encounter Additional Health Concerns Infection Onset Date Last Indicated Resolved Time VRE Comment:Backloaded September 06, 2011 11/26/2010 11/26/201006/18 5:00 AM CDT documented as of this encounter Care Teams Shell Coremaker Relationship Specialty Start Date End Date Kirt Lindsay DO PCP - General 05/02/17 11/22/20 documented as of this encounter
--- OUTSIDE RECORDS SUMMARY | 2024-11-22 13:08 | XMS_ITS | Encounter Summary ---
Author Organization [facility] Address [address] [place] [address] Phone Care Team Providers Care Clinical Cytogeneticist Name Role Phone Kirt Lindsay DO Primary Care Provider +1- [phone] Encounter Details Date Type Department Care Team (Late st Contact Info) Description 08/01/2018 Orders Only [facility] Oncology [address] [facility] Advanced Medicine 7th [place] [address] [place] [address] Eneida Gibson MD [address] [place] [address] Osteopenia, unspecified location (Primary Dx); 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); Eawve-fnpwvt-wikd disease (CMS/HCC); H/O allogeneic bone marrow transplant (CMS/HCC) Social History Tobacco Use Types Packs/Day Years Used Date Smoking Tobacco: Every Day Smokeless Tobacco: Never Sex and Gender Information Value Date Recorded Sex Assigned at Not on file Legal Sex Male 10:48 AM GENERAL LABOR FORKLIFT OPERATOR Gender Identity Not on file Sexual [...] remission (HCC) Acute myeloid leukemia in remission Soyhp-jpqhmu-tala disease (HCC) H/O allogeneic bone marrow transplant (HCC) documented in this encounter Discontinued Medications Medication Sig Discontinue Reason Start Date End Da te ergocalciferol (VITAMIN D) 50,000 unit capsuleIndications:Acute myeloid leukemia in remission (HCC),Oihpg-grcoym-gffi disease (HCC),H/O allogeneic bone marrow transplant (HCC) Take 1 capsule by mouth once a week. Reorder 03/14/2018 08/01/2018 documented as of this encounter Additional Health Concerns Infection Onset Date Last Indicated Resolved Time VRE Comment:Backloaded September 06, 2011 11/26/2010 11/26/201006/18 5:00 AM CDT documented as of this encounter Care Teams Clinical Cytogeneticist Relationship Specialty Start Date End Date Kirt Lindsay DO PCP - General 05/02/17 11/22/20 documented as of this encounter
--- OUTSIDE RECORDS SUMMARY | 2024-11-22 13:08 | XMS_ITS | Encounter Summary ---
Author Organization [facility] Address [address] [place] [address] Phone Care Team Providers Care Register Of Wills Name Role Phone Kirt Lindsay DO Primary Care Provider +1- [phone] Encounter Details Date Type Department Care Team (Late st Contact Info) Description 07/17/2018 Orders Only [facility] Bone Marrow Transplant [address] [facility] Medicine 7th Floor, [place] [address] Justine Jones RN AML (acute myeloid leukemia) in remission ([facility]); Floav-giusef-tpso disease ([facility]) Social History Tobacco Use Types Packs/Day Years Used Date Smoking Tobacco: Every Day Smokeless Tobacco: Never Sex and Gender Information Value Date Recorded Sex Assigned at Not on file Legal Sex Male 10:48 AM SAWMILL MANAGER Gender Identity Not on file Sexual [...] AML (acute myeloid leukemia) in remission (HCC) Gxwwo-bwvolv-phui disease (HCC) documented in this encounter Discontinued Medications Medication Sig Discontinue Reason Start Date End Da te XARELTO 20 mg tabletIndications:AML (acute myeloid leukemia) in remission (HCC) Take 1 tablet by mouth daily. Reorder 03/18/2018 07/17/2018 mycophenolate mofetil (CELLCEPT) 500 mg tabletIndications:AML (acute myeloid leukemia) in remission (HCC),Scghx-rkdasu-ehpp disease (HCC) Take 2 tablets by mouth [...] documented as of this encounter Care Teams Register Of Wills Relationship Specialty Start Date End Date Kirt Lindsay DO PCP - General 05/02/17 11/22/20 documented as of this encounter
--- OUTSIDE RECORDS SUMMARY | 2024-11-22 13:08 | XMS_ITS | Encounter Summary ---
Author Organization [facility] Address [address] [place] [address] Phone Care Team Providers Care Display Screen Fabricator Name Role Phone Kirt Lindsay DO Primary Care Provider +1- [phone] Encounter Details Date Type Department Care Team (Late st Contact Info) Description 08/01/2018 11:40 AM CDT Office Visit [facility] Oncology [address] [facility] Advanced Medicine 7th [place] [address] [place] [address] Eneida Gibson MD [address] [place], [place] [id number] Osteopenia, unspecified location (Primary Dx); Type 2 diabetes mellitus with hyperglycemia, with long-term current use of insulin ([facility]); Pure hypercholesterolemia; Vitamin D deficiency Social History Tobacco Use Types Packs/Day Years Used Date Smoking Tobacco: Every Day Smokeless Tobacco: Never Sex and Gender Information Value Date Recorded Sex Assigned at Not on file Legal Sex Male 10:48 AM FOREST FIRE PREVENTION SPECIALIST Gender Identity Not on file [...] for exercise . He now works at [employer]. For T2DM he has been taking metformin 500 mg BID. Checks his BS twice daily and they range between 100-140. He only takes metformin if his BS is [id number]. Eats frequently at [employer]. Has neuropathy and takes gabapentin at night [...] revised on 2018. HDL 74 >=40 mg/dL [facility] Comment: Interpretive Data Ages < or [...] on 2018. LDL, calculated 66 <=129 mg/dL [facility] Comment: Interpretive Data Ages < or [...] revised on 2018. Non-HDL Cholesterol 119 mg/dL [facility] Comment: Interpretive Data Ages < or [...] last revised on 2018. Chol/HDL ratio 3 [facility] Blood specimen (specimen) 05/29/2019 11:18 AM CDT 05/29/2019 11:45 AM CDT Eneida Gibson MD LAB BLOOD ORDERABLES Final Resul t Performing Organization Address [facility] de Phone Number [facility] Department [place] [address] * TSH (05/29/2019 11:18 AM CDT) Thyroid Stimulating Hormone 1.02 0.30 - 4.20 mcIUnit/mL [facility] Blood specimen (specimen) 05/29/2019 11:18 AM CDT 05/29/2019 11:45 AM CDT Eneida Gibson MD LAB BLOOD ORDERABLES Final Resul t Performing Organization Address [facility] de Phone Number [facility] Department [place] [address] * (ABNORMAL) Hemoglobin A1c (05/29/2019 11:18 AM CDT) Hgb A1C 14.7(H) 4.0 - 5.6 % [facility] Estimated Average Glucose 375 mg/dL [facility] Comment: The ADA recommends reporting an estimated Average Glucose (eAG) with all Hemoglobin A1c results using the equation derived from a study of 507 normal and diabetic adults. ??Minority populations were underrepresented and children were not included. ?? (Diabetes Care 31:8015-9732, 2008). ??The eAG is not equivalent to a fasting glucose. Blood specimen (specimen) 05/29/2019 11:18 AM CDT 05/29/2019 11:45 AM CDT Eneida Gibson MD LAB BLOOD ORDERABLES Final Resul t Performing Organization Address [facility]/ZIP Co de Phone Number [facility] Department [place] [address] * (ABNORMAL) Vitamin D 25 hydroxy (05/29/2019 11:18 AM CDT) Pathologist [facility] Vitamin D 25-OH 14(L) 30 - 80 ng/mL [facility] Blood specimen (specimen) 05/29/2019 11:18 AM CDT 05/29/2019 11:45 AM CDT Eneida Gibson MD LAB BLOOD ORDERABLES Final Resul t Performing Organization Address [facility] de Phone Number [facility] [place] [address] * (ABNORMAL) Comprehensive metabolic panel (05/29/2019 11:18 AM CDT) Sodium 134(L) 135 - 145 mmol/L [facility] Potassium, pl 4.9 3.3 - 4.9 mmol/L [facility] Comment:Hemolyzed; (+++); po tassium value may be falsely elevated by as much as 0.6 - 1.0 mmol/L. Suggest redraw and reanalysis. Chloride 94(L) 97 - 110 mmol/L [facility] CO2 28 22 - 32 mmol/L [facility] Anion gap 12 2 - 15 mmol/L [facility] BUN 19 8 - 25 mg/dL [facility] Creatinine 0.79(L) 0.80 - 1.30 mg/dL [facility] Glucose 331(H) 70 - 199 mg/dL [facility] [...] 2017. Calcium 9.5 8.5 - 10.3 mg/dL [facility] Bilirubin, total 0.4 0.1 - 1.2 mg/dL [facility] Protein, pl 6.7 6.5 - 8.5 g/dL [facility] Albumin 3.8 3.5 - 5.0 g/dL [facility] Alk phos 104 40 - 130 Units/L [facility] ALT 35 7 - 55 Units/L [facility] AST 32 10 - 50 Units/L [facility] Comment:Hemolyzed; result ma y be falsely elevated. Blood specimen (specimen) 05/29/2019 11:18 AM CDT 05/29/2019 11:45 AM CDT us Eneida Gibson MD LAB BLOOD ORDERABLES Final Resul t [facility] Department of Laboratories [place], [place] [id number] documented in this encounter Visit Diagnoses Diagnosis [...] as of this encounter Care Teams Display Screen Fabricator Relationship Specialty Start Date End Date Kirt Lindsay DO PCP - General 05/02/17 11/22/20 documented as of this encounter
--- OUTSIDE RECORDS SUMMARY | 2024-11-22 13:08 | XMS_ITS | Encounter Summary ---
Author Organization [facility] Address [address] [facility] [address] [place] [address] Phone Care Team Providers Care Recycling Assistant Name Role Phone Kirt Lindsay DO Primary Care Provider +1- [phone] Reason for Referral * Oncology (Routine) - Closed Specialty Diagnoses / Procedures Referred By Ana M anderson Referred To Contact Diagnoses AML (acute myeloid leukemia) in remission (HCC) H/O allogeneic bone marrow transplant (HCC) Mhmeg-qkbqhj-vqyw disease (HCC) Procedures Pulmonary Function Test -[facility] Adult PFT Lab- [facility]-8D; Spirometry with Bronchodilator, DLCO, Lung Volumes, Airway Resistance; Pleth with Airway Resistance; Lung volumes Narcisa Kilgore NP Phone: tel: fax: [address] [address] Referral ID Status Reason Start Date Expiration Date Visits Re quested Visits Authorized [id number] Closed 10/08/2018 04/18/2020 1 1 INE OPERATOR CANE CUTTER Reason for Visit * Oncology (Routine) - Closed Specialty Diagnoses / Procedures Referred By Ana M anderson Referred To Contact Diagnoses AML (acute myeloid leukemia) in remission (HCC) H/O allogeneic bone marrow transplant ([facility]) Pkqit-nxbodt-fijj disease ([facility]) Procedures Pulmonary Function Test -[facility] Adult PFT Lab- [facility]-8D; Spirometry with Bronchodilator, DLCO, Lung Volumes, Airway Resistance; Pleth with Airway Resistance; Lung volumes Narcisa Kilgore NP Phone: tel: fax: [address] [address] Referral ID Status Reason Start Date Expiration Date Visits Re quested Visits Authorized [id number] Closed 10/08/2018 04/18/2020 1 1 Encounter Details Date Type Department Care Team (Latest Contact Info) Description 2018 11:30 AM 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 CANE CUTTER - 2018 12:39 PM 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 CANE CUTTER Hospital Encounter [facility] Pulmonary [address] [address] AML (acute myeloid leukemia) in remission ([facility]); H/O allogeneic bone marrow transplant ([facility]); Oxjrq-dimqhv-evlk disease ([facility]) Discharge Disposition: Discharge to home or self care Social History Tobacco Use Types Packs/Day Years Used Date Smoking Tobacco: Every Day Smokeless Tobacco: Never Comments:Pt not interested i n smoking cessation program Sex and Gender Information Value Date Recorded Sex Assigned at Not on file Legal Sex Male 10:48 AM 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 CANE CUTTER Gender Identity Not on file Sexual Orientation Not on file documented as of this encounter Medications at Time of Discharge sulfamethoxazole- trimethoprim (BACTRIM,SEPTRA) 800-160 mg per tabletIndications :AML (acute myeloid leukemia) in remission (HCC),H/O allogeneic bone marrow transplant ([facility]) Take 1 tablet by mouth 2 (two) [...] FUNCTION TEST (PFT) Routine 2018 1:09 PM 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 CANE CUTTER AML (acute myeloid leukemia) in remission ([facility]) H/O allogeneic bone marrow transplant ([facility]) Rwolu-tkwokt-gzdd disease ([facility]) documented in this encounter Results * Pulmonary Function Test -[facility] Adult PFT Lab- [facility]-8D; Spirometry with Bronchodilator, DLCO, Lung Volumes, Airway Resistance; Pleth with Airway Resistance; Lung volumes (2018 1:09 PM 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 CANE CUTTER) FVC PRED 4.94 0.05 - 9.99 Liters [...] FEV1 POST 1.32 0 - 12 Liters [facility] FEV1 %POST PRED 34 0 - 300 % [facility] FEV1 %CHNG 13 0 - 300 % [facility] FEV1/FVC PRED 79 1 - 99 % [facility] FEV1/FVC PRE 30 0 - 12 % [facility] FEV1/FVC POST 30 0 - 12 % [facility] GBN77-79% PRED 3.48 0 - 12 L/sec [facility] DTW22-97% PRE 0.29 0 - 12 L/sec [facility] QWP12-22% %PRE PRED 8 0 - 300 % [facility] GLI15-39% POST 0.33 0 - 12 L/sec [facility] MGL46-11% %POST PRED 10 0 - 300 % [facility] HQW14-37% %CHNG 13 0 - 300 % [facility] [...] 74 0 - 300 % [facility] ZYU953% %CHNG 9 % [facility] PIF PRE 3.51 0 - 18 L/sec [facility] PIF POST 3.28 0 - 18 L/sec [facility] PIF %CHNG -7 0 - 300 % [facility] FEV6 PRE 2.68 0 - 12 Liters [facility] FEV6 POST 3.04 0 - 12 Liters [facility] FEV6 % CHG 14 0 - 300 % [facility] FEV1/FEV6 PRE 44 0 - 12 % [facility] FEV1/FEV6 POST 43 0 - 12 % [facility] VC PRED 4.69 0.05 - 9.99 Liters [facility] VC PRE 4.00 0.05 - 9.99 Liters [facility] VC %PRE PRED 85 0 - 300 % [facility] TLC PRED 6.98 0.05 - 11.99 Liters [facility] TLC PRE 7.89 0.05 - 11.99 Liters [facility] TLC %PRE PRED 113 0 - 300 % [facility] RV PRED 2.08 0.05 - 9.99 Liters [facility] RV PRE 3.89 0.05 - 9.99 Liters [facility] RV %PRE PRED 187 0 - 300 % [facility] RV/TLC PRED 30 0 - 300 % [facility] RV/TLC PRE 49 0 - 300 % [facility] FRC N2 PRED 3.04 0.05 - 9.[address] [facility] FRC PL PRED 3.58 0.05 - 9.[address] [facility] FRC PL PRE 5.49 0.05 - 9.99 [address] [facility] FRC PL %PRE PRED 153 0 - 300 % [facility] ERV PRED 1.62 0.05 - 9.99 Liters [facility] ERV PRE 1.68 0.05 - 9.99 Liters [facility] ERV %PRE PRED 103 0 - 300 % [facility] IC PRE 2.40 0.05 - 9.99 Liters [facility] DLCO PRED 36.3 0.05 - 99.99 mL/mmHg/min [facility] DLCO PRE 8.8 mL/mmHg/min [facility] DLCO %PRE PRED 24 0 - 300 % [facility] DL ADJ PRED 36.3 1 - 2 mL/mmHg/min [facility] DL ADJ PRE 8.7 1 - 2 mL/mmHg/min [facility] DL ADJ %PRE PRED 24 0 [...] L/s/cmH2O/L [facility] SGAW PRE 0.027 L/s/cmH2O/L [facility] SGAW %PRE PRED 12 % [facility] Anatomical Region Laterality Modality PFT 2018 12:2 6 PM 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 CANE CUTTER Narrative 10/30/2018 10:34 AM 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 CANE CUTTER See pdf us Narcisa Kilgore STOCKHOLDER PFT ORDERABLES Final Res ult documented in this encounter Visit Diagnoses Diagnosis AML (acute myeloid leukemia) in remission (HCC) H/O allogeneic bone marrow transplant (HCC) Txujk-vgnpax-dlue disease (HCC) documented in this encounter Additional Health Concerns Infection Onset Date Last Indicated Resolved Time VRE Comment:Backloaded September 06, 2011 11/26/2010 11/26/201006/18 5:00 AM CDT documented as of this encounter Care Teams Recycling Assistant Relationship Specialty Start Date End Date Kirt Lindsay DO PCP - General 05/02/17 11/22/20 documented as of this encounter
--- OUTSIDE RECORDS SUMMARY | 2024-11-22 13:08 | XMS_ITS | Encounter Summary ---
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) Social History Tobacco Use Types Packs/Day Years Used Date Smoking Tobacco: Every Day Smokeless Tobacco: Never Sex and Gender Information Value Date Recorded Sex Assigned at Not on file Legal Sex Male 10:48 AM STAFF INTERPRETER Gender Identity Not on file Sexual Orientation Not on file documented as of this encounter Plan of Treatment Not on file documented as of this encounter Results * (ABNORMAL) IgG (2018 9:30 AM STAFF INTERPRETER) Immunoglobulin G 579.0(L) 700.0 - 1,600.0 mg/dL [facility] Blood specimen (specimen) 2018 9:30 AM STAFF INTERPRETER 2018 9:49 AM STAFF INTERPRETER Narrative [facility] - 2018 10:21 AM STAFF INTERPRETER Narcisa Kilgore SAUSAGE MEAT TRIMMER LAB BLOOD ORDERABLES Pilar l Result Performing Organization Address City/[facility]/ZIP Co de Phone Number [facility] [place] [address] * (ABNORMAL) Vitamin D 25 hydroxy (2018 9:30 AM STAFF INTERPRETER) Vitamin D 25-OH 22(L) 30 - 80 ng/mL [facility] Blood specimen (specimen) 2018 9:30 AM STAFF INTERPRETER 2018 9:49 AM STAFF INTERPRETER Narrative [facility] - 2018 10:59 AM STAFF INTERPRETER Narcisa Kilgore SAUSAGE MEAT TRIMMER LAB BLOOD ORDERABLES Pilar l Result Performing Organization Address [facility] Co de Phone Number [facility] [place] [address] * (ABNORMAL) TSH (2018 9:30 AM STAFF INTERPRETER) Thyroid Stimulating Hormone 0.22(L) 0.30 - 4.20 mcIUnit/mL [facility] Blood specimen (specimen) 2018 9:30 AM STAFF INTERPRETER 2018 9:49 AM STAFF INTERPRETER Narrative [facility] - 2018 10:30 AM STAFF INTERPRETER Narcisa Kilgore SAUSAGE MEAT TRIMMER LAB BLOOD ORDERABLES Pilar l Result Performing Organization Address City/[facility]/ZIP Co de Phone Number 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
--- OUTSIDE RECORDS SUMMARY | 2024-11-22 13:08 | XMS_ITS | Encounter Summary ---
Author Organization [facility] Address [address] [facility] [address] [place] [address] Phone Care Team Providers Care Ekg/Ecg Technician Name Role Phone Kirt Lindsay DO Primary Care Provider [phone] Encounter Details Date Type Department Care Team (Late st Contact Info) Description 06/24/2018 Orders Only [facility] Trans[facility] [address], [place] [address] Silva Mortensen RMA AML (acute myeloid leukemia) in remission (CMS/HCC); Uyawn-fphrdt-tigk disease (CMS/HCC) Social History Tobacco Use Types Packs/Day Years Used Date Smoking Tobacco: Every Day Smokeless Tobacco: Never Sex and Gender Information Value Date Recorded Sex Assigned at Not on file Legal Sex Male 10:48 AM OIL TE[employer] Gender Identity Not on file Sexual [...] AML (acute myeloid leukemia) in remission (HCC) Covfk-tcjsnh-qrsi disease (HCC) documented in this encounter Discontinued Medications Medication Sig Discontinue Reason Start Date End Da te tacrolimus (PROGRAF) 0.5 mg capsuleIndications:AML (acute myeloid leukemia) in remission (HCC),Zwdzy-scjmru-xqmf disease (HCC) Take 1 capsule by mouth every other day. 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
--- OUTSIDE RECORDS SUMMARY | 2024-11-22 13:08 | XMS_ITS | Encounter Summary ---
Author Organization [facility] Healthcare Address [address] [place] [address] Care Team Providers Care Records Management Clerk Name Role Phone Kirt Lindsay DO Primary Care Provider [phone] Reason for Visit * Reason Comments Acute Myeloid Leukemia eval by RECIPROCATING DRILL OPERATOR Encounter Details Date Type Department Care Team (Latest Contact Info) Description 11/22/2018 10:31 AM QUALITY TECHNICIAN - 11/25/2018 7:52 PM [facility] Hospital Encounter [address] [phone] Josué Del Valle MD PhD [address] DIV IM BONE MARROW TRANSPLANT, [address] [place] [address] Dehydration (Primary Dx); Chemotherapy induced nausea and vomiting; Infection; Type 2 diabetes mellitus with hyperosmolarity without coma, with long-term current use of insulin (CMS/HCC); Electrolyte imbalance; AML (acute myeloid leukemia) in remission (CMS/HCC); Bpvrm-idgezi-xrcp disease (CMS/HCC); H/O allogeneic bone marrow transplant [...] Legal Sex Male 10:48 AM QUALITY TECHNICIAN Gender Identity Not on file Sexual Orientation Not on file documented as of this encounter Last Filed Vital Signs Vital Sign Reading Time Taken Comments Blood Pressure 125/66 11/25/2018 3:51 PM QUALITY TECHNICIAN Pulse 96 11/25/2018 3:51 PM QUALITY TECHNICIAN Temperature 37 ??C (98.6 ??F) 11/25/2018 3:51 PM QUALITY TECHNICIAN Respiratory Rate 17 11/25/2018 3:51 PM QUALITY TECHNICIAN Oxygen Saturation 90% 11/25/2018 3:51 PM QUALITY TECHNICIAN Inhaled Oxygen Concentration - - Weight 71.7 kg (158 lb) 11/24/2018 8:20 PM QUALITY TECHNICIAN Height 179 cm (5' 10.47 ) 11/22/2018 4:50 PM QUALITY TECHNICIAN Body Mass Index 22.37 11/22/2018 4:50 PM QUALITY TECHNICIAN documented in this encounter Discharge Summaries * Josefa Nur NP - 11/25/2018 7:52 PM CST Inpatient Discharge Summary BRIEF OVERVIEW Admitting Provider: Josué Del Valle MD PhD Discharge Provider: No att. providers found Primary Care Physician at Discharge: Kirt Lindsay DO [phone] Admission Date: 11/22/2018 Discharge Date: 11/25/2018 Admission Location: [facility] Primary Discharge Diagnosis: Chronic sinusitis Secondary Discharge Diagnosis: Sinusitis AML (acute myeloid leukemia) in remission ([facility]) Depressed mood Ftvlc-mznmok-ieni disease ([facility]/HCC) H/O allogeneic bone marrow transplant ([facility]) Type 2 diabetes mellitus ([facility]) Pure hypercholesterolemia Vitamin D deficiency COPD, severe ([facility]) DVT (deep venous thrombosis) ([facility]) * No resolved hospital problems. * DETAILS [...] DVT, who is being admitted from the [facility] due to malaise, low grade fevers, cough and sinus pressure. ?? Presented today to [facility] for a week of cough with occasional [...] days prior to this presentation went to [facility], I do not have records, but he reports being treated with steroids and albuterol which did not markedly improve his symptoms. ?? On arrivals to [facility]: afebrile, HR 118, RR 18/min, BP 100/75mmHg. [...] on Novolog pen SSI with each meal. pipe crew foreman saw pt. Scripts for diabetic supplies and meds were sent to [facility] in [place] for vegetable picker. He will likely need basal insulin but pt was resistant to this, as states he has had lower sugars with Lantus in past. Oliverll f/u with endocrinology on 12/16. #Depressed mood-Per outpatient team, there was concern for depressed mood prior to admission. [facility] with [...] 1 tablet (750 mg total) by mouth clock and watch hands dipper before breakfast for 10 days. metFORMIN XR [...] 01/30/2019 11:40 AM Eneida Gibson MD ONC [facility] On[facility] Contact Information for Follow-ups Kirt Lindsay DO Specialty: Internal Medicine Relationship: PCP - General [address] [place] [address] [place] [address] Next Steps: Follow up Cosigned by Josué Del Valle MD PhD at 11/26/2018 6:24 PM QUALITY TECHNICIAN ITY TECHNICIAN ITY TECHNICIAN Associated attestation - Josué Del Valle MD PhD - 11/26/2018 6:24 PM QUALITY TECHNICIAN I have seen and examined the patient [...] 1 tablet (750 mg total) by mouth clock and watch hands dipper before breakfast for 10 days. 10 tablet [...] 1 tablet (750 mg total) by mouth clock and watch hands dipper before breakfast for 10 days. 10 tablet [...] 1 tablet (750 mg total) by mouth clock and watch hands dipper before breakfast for 10 days. 10 tablet [...] ??? acetaminophen ? ? aluminum & magnesium dmjkvacek-oolzutnmelt-dtmhxjvdxtcsufr-lidocaine (MAGIC MOUTHWASH) suspension 1-1-1 ??? bacitracin-polymyxin B [...] recommended pharm therapy. DVT (deep venous thrombosis) ([facility]) Assessment & Plan Cont Xarelto. COPD, severe (CMS/[facility]) Assessment & Plan Continues to smoke >1 ppd. -Cont steroids at current dose. -Cont Advair diskus BID, cont albuterol inh QID. -Encourage smoking cessation. Cont nicotine patch. Type 2 diabetes mellitus ([facility]) Assessment & Plan -Poorly controlled, recently stopped [...] and sent e- script to [facility] in [place] on 11/24. Pt has script for glucose strips waiting there as well. AML (acute myeloid leukemia) in remission ([facility]) Assessment & Plan -s/p sibling allo SCT on 11/09/09, now in CR with no e/o recurrence. 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 -Cont OI ppx with Bactrim, acyclovir. Mmlbi-uakjeq-wark disease ([facility]) Assessment & Plan cGVHD of eyes, mouth, [...] TillmanP- Nurse Practitioner, Blood and Marrow Transplant ITY TECHNICIAN * Rogers Lagos RN - 11/25/2018 2:53 [...] Support From Friends. Follow Up Appointment Complete. ITY TECHNICIAN ITY TECHNICIAN * Rogers Lagos RN - 11/25/2018 9:21 AM CST 11/25/18 0915 Patient Information Primary Caregiver Self Support System Children;Friends/neighbors Support system contact info (name, phone, availablity) shashank Yuan [phone] Income Information Income Source SSD/SSI Potential Discharge Needs Anticipated discharge level of care Return Home Communications Fiduciary Responsibility Patient/Designated decision maker was informed of [facility] fiduciary relationship as necessary Chart [...] To Continue To Follow for Discharge needs ITY TECHNICIAN ITY TECHNICIAN * Josefa Nur NP - 11/24/2018 11:39 [...] sodium chloride 0.9% 0.5-20 mL intra-catheter Q8H [facility] sulfamethoxazole-trimethoprim 320 mg of trimethoprim oral 2 times per day on Sat [START ON 11/25/2018] tacrolimus 0.5 mg oral Every other day vancomycin 1,000 mg intravenous Q12H Continuous Infusions: sodium chloride 0.9% 30 mL/hr sodium chloride 0.9% 30 mL/hr PRN Meds:.??? acetaminophen ??? acetaminophen ? ? aluminum & magnesium hgzcwdmgc-cddleyibswh-rdsafjpcqalgpod-lidocaine (MAGIC MOUTHWASH) suspension 1-1-1 ??? bacitracin-polymyxin B [...] /Plan AML (acute myeloid leukemia) in remission ([facility]) Assessment & Plan -s/p sibling allo SCT [...] recommended pharm therapy. DVT (deep venous thrombosis) ([facility]) Assessment & Plan Cont Xarelto. COPD, severe ([facility]) Assessment & Plan Continues to smoke >1 ppd. -Cont steroids at current dose. -Cont Advair diskus BID, cont albuterol inh QID. -Encourage smoking cessation. Cont nicotine patch. Type 2 diabetes mellitus ([facility]) Assessment & Plan -Poorly controlled, recently stopped [...] and sent e- script to [facility] in [place] on 11/24. Pt has script for glucose strips waiting there as well. 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 -Cont pred 10 mg BID, MMF 1g BID, tacrolimus 0.5 mg QOD. -F/u tac trough (due 8 AM). CORONA Tillman- Nurse Practitioner, Blood and Marrow Transplant Cosigned by Josué Del Valle MD PhD at 11/24/2018 7:10 PM QUALITY TECHNICIAN ITY TECHNICIAN ITY TECHNICIAN ITY TECHNICIAN Associated attestation - Josué Del Valle., MD PhD - 11/24/2018 7:10 PM QUALITY TECHNICIAN I have seen and examined the patient [...] Valle MD PhD * Boom Josefaflori Valente RECIPROCATING DRILL OPERATOR - 11/23/2018 11:16 AM CST BMT Progress [...] ??? acetaminophen ? ? aluminum & magnesium iayzrenvp-mihaimvlmse-axpzhvfhdglqpko-lidocaine (MAGIC MOUTHWASH) suspension 1-1-1 ??? bacitracin-polymyxin B [...] /Plan AML (acute myeloid leukemia) in remission ([facility]) Assessment & Plan -s/p sibling allo SCT on 11/09/09, now in CR with no e/o recurrence. 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 -Cont OI ppx with Bactrim, acyclovir. DVT (deep venous thrombosis) ([facility]) Assessment & Plan Cont Xarelto. COPD, severe ([facility]) Assessment & Plan Continues to smoke >1 ppd. -Cont steroids at current dose. -Cont Advair diskus BID, cont albuterol inh QID. -Encourage smoking cessation. Cont nicotine patch. Type 2 diabetes mellitus ([facility]) Assessment & Plan -Poorly controlled, recently stopped checking glucose as ran out of strips. -Cont Accu QID. -Cont SSI Lispro, hold metformin. Fgkkl-atzxdm-tgjm disease ([facility]) Assessment & Plan cGVHD of eyes, mouth, [...] Valle MD PhD at 11/23/2018 12:05 PM QUALITY TECHNICIAN ITY TECHNICIAN ITY TECHNICIAN Associated attestation - Josué Del Valle MD PhD - 11/23/2018 12:05 PM QUALITY TECHNICIAN I have seen and examined the patient [...] DVT, who is being admitted from the [facility] due to malaise, low grade fevers, cough and sinus pressure. Presented today to [facility] for a week of cough with occasional [...] days prior to this presentation went to [facility], I do not have records, but he reports being treated with steroids and albuterol which did not markedly improve his symptoms. On arrivals to [facility]: afebrile, HR 118, RR 18/min, BP 100/75mmHg. [...] x3. 2. Decitabine maintenance on the CALGB 03802 protocol. 3. 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 [...] and Plan: Principal Problem: Sinusitis Active Problems: Pcrdv-hpgsuy-nvth disease (CMS/HCC) H/O allogeneic bone marrow transplant ([facility]) Type 2 diabetes mellitus ([facility]/HCC) Pure hypercholesterolemia Vitamin D deficiency COPD, severe [...] Valle MD PhD at 11/23/2018 11:18 AM QUALITY TECHNICIAN ITY TECHNICIAN ITY TECHNICIAN Associated attestation - Josué Del Valle MD PhD - 11/23/2018 11:18 AM QUALITY TECHNICIAN I have seen and examined the patient on 11/23/18. I agree with the findings and plan of care as documented in the resident/fellow's note. Josué Del Valle MD PhD * Louise Resendiz NP - 11/22/2018 8:56 AM CST Oncology Progress Note [facility] Chief Complaint: Persistent cough, [...] multiple dental extractions. He comes to the [facility] today with c/o a 1 week history [...] States 2 days ago he went to [facility] and was treated with steroids and albuterol which did not help him at all. States he had very little sleep last night from coughing a lot. Upon arrival to the [facility] his temp was 98.1. Cancer Staging No [...] and oriented to person, place, and time. [place]. Skin: Dry and intact.No cuts or bruises [...] headaches, I discussed this patient with the professional healthcare representative fellow and the plan is that the be admitted for further work-up. Patient is agreeable to the plan. Report given to hospitalist. Patient transferred to [facility] in a stable condition. Louise Resendiz NP 11/22/18 ITY TECHNICIAN documented in this encounter Consult Notes * [...] AML in remission who presented from the [facility] with malaise, low grade fevers cough and [...] sodium chloride 0.9% 0.5-20 mL intra-catheter Q8H [facility] sodium chloride-sodium bicarbonate 1 packet each nostril Daily sulfamethoxazole-trimethoprim 320 mg of trimethoprim oral 2 times per day on Sat [START ON 11/25/2018] tacrolimus 0.5 mg oral Every other day Continuous Infusions: sodium chloride 0.9% 30 mL/hr sodium chloride 0.9% 30 mL/hr PRN Meds: ??? acetaminophen ??? acetaminophen ? ? aluminum & magnesium kriwbqbrv-nyyxpnwikgt-deuvomnanvddhgc-lidocaine (MAGIC MOUTHWASH) suspension 1-1-1 ??? bacitracin-polymyxin B [...] undercooked meat, fish, poultry, or eggs. Question: ([facility]) Diet type Answer: Regular 11/22/18 1532 Nutrition [...] review on information. Noted psychiatry consult and transmission mechanic consult. 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 Psychiatry was consulted regarding depressive mood. We recommended that the team contact [facility] as patient will benefit from counseling. If they needed any help with psychopharmacology, we will be happy to help. They were told to call us with any questions. Team agreed with plan. Cosigned by Jose Enrique Antonio MD at 11/25/2018 5:04 PM QUALITY TECHNICIAN ITY TECHNICIAN ITY TECHNICIAN * Micky Grace MD - 11/23/2018 3:19 PM CSTAssociated Order(s): IP CONSULT TO ENT Otolaryngology - Head & Neck Surgery Consult Attending Physician: Milagros Reason for Consult: Maxillary sinus thickening seen on CT Requesting Team: BMT Requesting Provider: Jessica Casey Brady Jones is a 53 y.o. male with a history of AML status post stem cell transplant in 2008 complicated by duxva-bbkvpt-wdrj disease. He is admitted for treatment of [...] Active Problem List Diagnosis ??? Osteopenia ??? Xrzlp-iuptzv-tmwn disease (CMS/HCC) ??? H/O allogeneic bone marrow [...] Mayuri Linares MD at 11/27/2018 2:24 PM QUALITY TECHNICIAN ITY TECHNICIAN ITY TECHNICIAN ITY TECHNICIAN documented in this encounter Nursing Notes * [...] transported home by friend. Prescriptions called into [facility] pharmacy per pt's request. ITY TECHNICIAN * Bela Valdivia RN - 11/25/2018 1:51 [...] and just has to pick the) Provider Cost Analyst (Discussed a1c of 14 and that [...] Treatment Prior To Admission (Discsussed with the RECIPROCATING DRILL OPERATOR John about dm regimen prior to going [...] of this insulin at home ) Pen [place] Ultra fine 4 mm Glucometer OneTouch Verio Meter Test Strips One Touch Verio test strips Lancets Delica lancets Blood Glucose Testing Regimen 4 times per day Diabetes/Education Follow Up Primary Care Provider;Cost Analyst Pt says he can afford his strips and medications in past. More dm educ and support needed. ITY TECHNICIAN * Bela Valdivia RN - 11/24/2018 3:02 [...] report blood sugars Pt has a meter RECIPROCATING DRILL OPERATOR states. ITY TECHNICIAN * Bela Valdivia RN - 11/24/2018 9:40 AM CST CDE left message on ARMEN Sibley phone this am. Awaiting call back ([phone]), so questions can be answered. Pt has [...] he has no difficulties with this task) ITY TECHNICIAN * Dennis Crow RN - 11/22/2018 6:25 PM CST Patient admitted to [facility] at 1700. Two nurses teamed up to successfully complete a head-to-toe skin assessment. The findings of this resulted in the following: skin is C/D/I, no s/s breakdown. The appropriate goals and interventions have been implemented and documented. Cosigned by Estrella Gonzalez RN at 11/25/2018 3:44 PM QUALITY TECHNICIAN ITY TECHNICIAN ITY TECHNICIAN ITY TECHNICIAN * Nancy Jones RN - 11/22/2018 4:50 PM CST Pt with AML was seen by RECIPROCATING DRILL OPERATOR in [facility] d/t cough and MARCOS. Pt denies fever. Pt is s/p allo with hx of GVH of lungs and COPD. Labs, blood cultures X 2, RECIPROCATING DRILL OPERATOR swab, urine flex sent. Chest CTdone. BS checked; 12 U Lispro given for BS 457. Rechecked after 1 hour; BS 319. NS infused per order. Cefepime and Vancomycin infused per order. Pt admitted to hospital. See Neris Resendiz RECIPROCATING DRILL OPERATOR note for additional information. Report given to Dennis CONNELL on 8800 Pt transferred to [id number] via wheelchair accompanied by transporter. ITY TECHNICIAN ITY TECHNICIAN ITY TECHNICIAN documented in this encounter Miscellaneous Notes * [...] will improve to fullest extent possible Progressing ITY TECHNICIAN * Plan of Care - Dayron Armijo RRT - 11/25/2018 8:21 AM CST Pt tolerated albuterol well; pt sounded diminished; will continue to do tx QID ITY TECHNICIAN * Plan of Care - Nam Sandy RN - 11/24/2018 11:49 PM QUALITY TECHNICIAN Goals: Clinical Goals for the Shift: pt [...] 164. Pt received 7 units of insulin. ITY TECHNICIAN * Plan of Care - Ainsley Alvarenga [...] discharge home tomorrow. Will continue to monitor. ITY TECHNICIAN * Plan of Care - Rogers Lagos RN - 11/24/2018 5:54 PM CST Unable to Complete Initial Assessment ITY TECHNICIAN * Assessment & Plan Note - Josefa Nur NP - 11/24/2018 4:55 PM QUALITY TECHNICIAN Associated Problem(s): Depressed mood With feelings of depressed mood prior to admission. Outpt team with concerns for pt's wellbeing as he was more noncompliant and down over the phone prior to admit. -Consulted [facility] counseling 11/24, will plan to see him on AM of 11/25 at 0900. -Also consulted psychiatry, but felt that counseling service was appropriate first step and would only see him if they recommended pharm therapy. ITY TECHNICIAN * Plan of Care - Dayron Armijo RRT - 11/24/2018 8:38 AM CST Pt tolerated albuterol and advair well; pt sounded diminished and not in distress; will changed 5mgto 2.5mg per respiratory protocol; pt was able to use inhaler self independently and technique was good; will chagned Advair to RN TO ADMINISTER per respiratory protocol ITY TECHNICIAN * Plan of Care - Cruz Gustafson [...] will improve to fullest extent possible Progressing ITY TECHNICIAN * Assessment & Plan Note - Josefa Nur NP - 11/23/2018 11:32 AM QUALITY TECHNICIAN Associated Problem(s): DVT (deep venous thrombosis) (CMS/HCC) (HCC) Cont Xarelto. ITY TECHNICIAN * Assessment & Plan Note - Josefa Nur NP - 11/23/2018 11:30 AM QUALITY TECHNICIAN Associated Problem(s): Type 2 diabetes mellitus (HCC) [...] and sent e- script to [facility] in [place] on 11/24. Pt has script for glucose strips waiting there as well. ITY TECHNICIAN ITY TECHNICIAN ITY TECHNICIAN ITY TECHNICIAN ITY TECHNICIAN ITY TECHNICIAN * Assessment & Plan Note - Josefa Nur NP - 11/23/2018 11:28 AM QUALITY TECHNICIAN Associated Problem(s): COPD with exacerbation (CMS/HCC) (HCC) Continues to smoke >1 ppd. -Cont steroids at current dose. -Cont Advair diskus BID, cont albuterol inh QID. -Encourage smoking cessation. Cont nicotine patch. ITY TECHNICIAN * Assessment & Plan Note - Josefa Nur NP - 11/23/2018 11:26 AM QUALITY TECHNICIAN Associated Problem(s): Sinusitis Chronic issue over last [...] Head CT 11/22 shows no PE-->no pneumonia. 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 -Cont pred 10 mg BID, MMF 1g BID, tacrolimus 0.5 mg QOD. -F/u tac trough (due 18 AM). ITY TECHNICIAN ITY TECHNICIAN * Assessment & Plan Note - Josefa Nur NP - 11/23/2018 11:23 AM QUALITY TECHNICIAN Associated Problem(s): AML s/p Allo SCT in 2008 -s/p sibling allo SCT on 11/09/09, now in CR with no e/o recurrence. 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 -Cont OI ppx with Bactrim, acyclovir. ITY TECHNICIAN * Plan of Care - Cruz Gustafson [...] will improve to fullest extent possible Progressing ITY TECHNICIAN * Plan of Care - Hilda Peters RRT - 11/22/2018 8:33 PM CST Impression: Medical Conditions Diagnosis ??? Osteopenia ??? Eddeo-dlnvub-zcqz disease (CMS/HCC) ??? H/O allogeneic bone marrow transplant (CMS/HCC) ??? AML (acute myeloid leukemia) in remission (CMS/HCC) ??? Type 2 diabetes mellitus (CMS/HCC) ??? Pure hypercholesterolemia ??? Vitamin D deficiency ??? Cough ??? Sinusitis ??? COPD, severe (CMS/HCC) Plan: Administer albuterol as ordered; continue to monitor. ITY TECHNICIAN * Plan of Care - Dennis Crow [...] precautions. Will conitnue w/ plan of care. ITY TECHNICIAN documented in this encounter Plan of [...] Routine Gen Lab 11/25/2018 5 :23 PM QUALITY TECHNICIAN POCT GLUCOSE DEVICE Routine Gen Lab 11/25/2018 1 2:27 PM QUALITY TECHNICIAN POCT GLUCOSE DEVICE Routine Gen Lab 11/25/2018 7 :17 AM QUALITY TECHNICIAN BMT CBC Routine 11/25/2018 5:36 AM QUALITY TECHNICIAN MANUAL DIFFERENTIAL Routine 11/25/2018 5 :36 AM QUALITY TECHNICIAN CBC WITHOUT DIFFERENTIAL Routine Gen Lab 11/25/2018 5:36 AM QUALITY TECHNICIAN PHOSPHORUS Routine 11/25/2018 5:36 AM QUALITY TECHNICIAN MAGNESIUM Routine 11/25/2018 5:36 AM QUALITY TECHNICIAN BASIC METABOLIC PANEL Routine 11/25/2018 5:36 AM QUALITY TECHNICIAN POCT GLUCOSE DEVICE Routine Gen Lab 11/24/2018 1 0:39 PM QUALITY TECHNICIAN POCT GLUCOSE DEVICE Routine Gen Lab 11/24/2018 7 :56 PM QUALITY TECHNICIAN POCT GLUCOSE DEVICE Routine Gen Lab 11/24/2018 1 2:46 PM QUALITY TECHNICIAN POCT GLUCOSE DEVICE Routine Gen Lab 11/24/2018 1 0:25 AM QUALITY TECHNICIAN POCT GLUCOSE DEVICE Routine Gen Lab 11/24/2018 7 :47 AM QUALITY TECHNICIAN BMT CBC Routine 11/24/2018 5:35 AM QUALITY TECHNICIAN CRITICAL RESULT CALLBACK CHEMISTRY Routine Gen Lab 11/24/2018 5:35 AM QUALITY TECHNICIAN MANUAL DIFFERENTIAL Routine 11/24/2018 5 :35 AM QUALITY TECHNICIAN APTT Routine 11/24/2018 5:35 AM QUALITY TECHNICIAN PROTIME-INR Routine 11/24/2018 5:35 AM QUALITY TECHNICIAN CBC WITHOUT DIFFERENTIAL Routine Gen Lab 11/24/2018 5:35 AM QUALITY TECHNICIAN TYPE AND SCREEN Timed 11/24/2018 5:35 AM QUALITY TECHNICIAN URIC ACID Routine 11/24/2018 5:35 AM QUALITY TECHNICIAN PHOSPHORUS Routine 11/24/2018 5:35 AM QUALITY TECHNICIAN MAGNESIUM Routine 11/24/2018 5:35 AM QUALITY TECHNICIAN LACTATE DEHYDROGENASE Routine 11/24/2018 5:35 AM QUALITY TECHNICIAN COMPREHENSIVE METABOLIC PANEL Routine 11/24/2018 5:35 AM QUALITY TECHNICIAN POCT GLUCOSE DEVICE Routine Gen Lab 11/23/2018 9 :33 PM QUALITY TECHNICIAN POCT GLUCOSE DEVICE Routine Gen Lab 11/23/2018 5 :37 PM QUALITY TECHNICIAN POCT GLUCOSE DEVICE Routine Gen Lab 11/23/2018 1 2:38 PM QUALITY TECHNICIAN POCT GLUCOSE DEVICE Routine Gen Lab 11/23/2018 9 :15 AM QUALITY TECHNICIAN BMT CBC Routine 11/23/2018 4:43 AM QUALITY TECHNICIAN TACROLIMUS LEVEL, TROUGH Routine 11/23/2018 4:43 AM QUALITY TECHNICIAN MANUAL DIFFERENTIAL Routine 11/23/2018 4 :43 AM QUALITY TECHNICIAN CBC WITHOUT DIFFERENTIAL Routine Gen Lab 11/23/2018 4:43 AM QUALITY TECHNICIAN PHOSPHORUS Routine 11/23/2018 4:43 AM QUALITY TECHNICIAN MAGNESIUM Routine 11/23/2018 4:43 AM QUALITY TECHNICIAN HEMOGLOBIN A1C Routine 11/23/2018 4:43 AM QUALITY TECHNICIAN BASIC METABOLIC PANEL Routine 11/23/2018 4:43 AM QUALITY TECHNICIAN POCT GLUCOSE DEVICE Routine Gen Lab 11/22/2018 9 :52 PM QUALITY TECHNICIAN ECG 12-LEAD Routine 11/22/2018 6:30 PM QUALITY TECHNICIAN POCT GLUCOSE DEVICE Routine Gen Lab 11/22/2018 5 :33 PM QUALITY TECHNICIAN POCT GLUCOSE DEVICE Routine Gen Lab 11/22/2018 2 :[address] CHEST PE W CONTRAST ED Urgent/IP Urgent 11/22/2018 1:[address] HEAD W CONTRAST ED Urgent/IP Urgent 11/22/2018 1:50 PM QUALITY TECHNICIAN POCT GLUCOSE DEVICE Routine Gen Lab 11/22/2018 1 2:35 PM QUALITY TECHNICIAN URINALYSIS AND REFLEX TO MICROSCOPIC AND CULTURE Routine 11/22/2018 11:21 AM QUALITY TECHNICIAN RESPIRATORY PATHOGEN PANEL Routine 11/22/2018 11:21 AM QUALITY TECHNICIAN LACTATE Routine 11/22/2018 11:20 AM QUALITY TECHNICIAN DIFFERENTIAL AUTO Routine Gen Lab 11/22/2018 11: 20 AM QUALITY TECHNICIAN CBC WITH AUTO DIFFERENTIAL Routine 11/22/2018 11:20 AM QUALITY TECHNICIAN BLOOD CULTURE Routine 11/22/2018 11:20 AM QUALITY TECHNICIAN BLOOD CULTURE Routine 11/22/2018 11:20 AM QUALITY TECHNICIAN TYPE AND SCREEN Timed 11/22/2018 11:20 AM QUALITY TECHNICIAN PHOSPHORUS STAT 11/22/2018 11:20 AM QUALITY TECHNICIAN MAGNESIUM STAT 11/22/2018 11:20 AM QUALITY TECHNICIAN HEMOGLOBIN A1C Routine 11/22/2018 11:20 AM QUALITY TECHNICIAN COMPREHENSIVE METABOLIC PANEL STAT 11/22/2018 11:20 AM QUALITY TECHNICIAN documented in this encounter Results * (ABNORMAL) POCT glucose (11/25/2018 5:23 PM QUALITY TECHNICIAN) Glucose, POC 255(H) 70 - 199 mg/dL [facility] Blood specimen (specimen) 11/25/2018 5:23 PM QUALITY TECHNICIAN 11/25/2018 5:23 PM QUALITY TECHNICIAN Narrative [facility] - 11/25/2018 5:37 PM QUALITY TECHNICIAN Josué Del Valle MD PhD LAB POCT ORDERABLES - DE VICE Final Result Performing Organization Address City/[facility]/ZIP Co de Phone Number [facility] [place] [address] * POCT glucose (11/25/2018 12:27 PM QUALITY TECHNICIAN) Glucose, POC 155 70 - 199 mg/dL [facility] Blood specimen (specimen) 11/25/2018 12:27 PM QUALITY TECHNICIAN 11/25/2018 12:27 PM QUALITY TECHNICIAN Narrative [facility] - 11/25/2018 12:38 PM QUALITY TECHNICIAN Josué Del Valle MD PhD LAB POCT ORDERABLES - DE VICE Final Result Performing Organization Address City/[facility]/ZIP Co de Phone Number [facility] [place] [address] * (ABNORMAL) POCT glucose (11/25/2018 7:17 AM QUALITY TECHNICIAN) Glucose, POC 324(H) 70 - 199 mg/dL [facility] Blood specimen (specimen) 11/25/2018 7:17 AM QUALITY TECHNICIAN 11/25/2018 7:17 AM QUALITY TECHNICIAN Narrative [facility] - 11/25/2018 7:28 AM QUALITY TECHNICIAN us Josué Del Valle MD PhD LAB POCT ORDERABLES - DE VICE Final Result [facility] Department [place] [address] * (ABNORMAL) Manual Differential (11/25/2018 5:36 AM QUALITY TECHNICIAN) [facility] Differential Manual [facility] Cells Counted 114 [facility] Neutrophil abs 13.3(H) 1.7 - 6.5 K/cumm [facility] Imm gran abs 0.0 0.0 - 0.1 K/cumm [facility] Lymphocyte abs 1.3 0.8 - 3.3 K/cumm [facility] Monocyte abs 1.4(H) 0.2 - 0.8 K/cumm [facility] Basophil abs 0.2(H) 0.0 - 0.1 K/cumm [facility] Neutrophil pct 82.4 % [facility] Comment: Interpretive Data Percent cell count reference ranges are not reported, since discordance with absolute values may lead to misinterpretation of CBC data. Current Interpretive Data was last revised on 2018. Lymphocyte pct 5.3 % [facility] Comment: Interpretive Data Percent cell count reference ranges are not reported, since discordance with absolute values may lead to misinterpretation of CBC data. Current Interpretive Data was last revised on 2018. Monocyte pct 8.8 % [facility] Comment: Interpretive Data Percent cell count reference ranges are not reported, since discordance with absolute values may lead to misinterpretation of CBC data. Current Interpretive Data was last revised on 2018. Basophil pct 0.9 % [facility] Comment: Interpretive Data Percent cell count reference ranges are not reported, since discordance with absolute values may lead to misinterpretation of CBC data. Current Interpretive Data was last revised on 2018. Variant lymph pct 2.6(H) 0.0 - 0.0 % [facility] RBC morphology Present(A) [facility] Anisocytosis Slight(A) [facility] Poikilocytosis Moderate(A) [facility] Macrocytes 3-7/HPF(A) [facility] Platelet estimate Adequate [facility] Blood specimen (specimen) 11/25/2018 5:36 AM QUALITY TECHNICIAN 11/25/2018 6:17 AM QUALITY TECHNICIAN Narrative [facility] - 11/25/2018 6:54 AM QUALITY TECHNICIAN us Josué Del Valle MD PhD LAB BLOOD ORDERABLES Arun tamiko Result - Final [facility] Department [place] [address] * (ABNORMAL) CBC without differential (11/25/2018 5:36 AM QUALITY TECHNICIAN) WBC 16.2(H) 3.8 - 9.9 K/cumm [facility] Hgb 13.8 13.0 - 17.5 g/dL [facility] Hct 40.0 38.9 - 50.3 % [facility] Plt 173 150 - 400 K/cumm [facility] MPV 11.1 9.1 - 12.3 fL [facility] RBC 3.79(L) 4.30 - 5.80 M/cumm [facility] MCV 105.5(H) 81.3 - 96.4 fL [facility] MCH 36.4(H) 27.1 - 33.3 pg [facility] MCHC 34.5 32.3 - 35.7 g/dL [facility] RDW CV 13.5 11.1 - 14.9 % [facility] RDW SD 52.4(H) 35.7 - 48.1 fL [facility] NRBC abs 0.00 0.00 - 0.01 K/cumm [facility] Blood specimen (specimen) 11/25/2018 5:36 AM QUALITY TECHNICIAN 11/25/2018 6:17 AM QUALITY TECHNICIAN Narrative [facility] - 11/25/2018 6:26 AM QUALITY TECHNICIAN us Josué Del Valle MD PhD LAB BLOOD ORDERABLES Fin al Result Performing Organization Address City/[facility]/ZIP Co de Phone Number [facility] Department [place] [address] * Phosphorus (11/25/2018 5:36 AM QUALITY TECHNICIAN) Phosphorus, pl 2.3 2.3 - 4.5 mg/dL [facility] Blood specimen (specimen) 11/25/2018 5:36 AM QUALITY TECHNICIAN 11/25/2018 6:16 AM QUALITY TECHNICIAN Narrative [facility] - 11/25/2018 6:44 AM QUALITY TECHNICIAN us Josué Del Valle MD PhD LAB BLOOD ORDERABLES Fin al Result Performing Organization Address [facility] [place] [address] * Magnesium (11/25/2018 5:36 AM QUALITY TECHNICIAN) Magnesium 1.4 1.4 - 2.5 mg/dL [facility] Blood specimen (specimen) 11/25/2018 5:36 AM QUALITY TECHNICIAN 11/25/2018 6:16 AM QUALITY TECHNICIAN Narrative [facility] - 11/25/2018 6:44 AM QUALITY TECHNICIAN Josué Del Valle MD PhD LAB BLOOD ORDERABLES Fin al Result Performing Organization Address City/[facility] Co de Phone Number [facility] [place] [address] * (ABNORMAL) Basic metabolic panel (11/25/2018 5:36 AM QUALITY TECHNICIAN) Sodium 130(L) 135 - 145 mmol/L [facility] Potassium, pl 4.1 3.3 - 4.9 mmol/L [facility] Chloride 91(L) 97 - 110 mmol/L [facility] CO2 32 22 - 32 mmol/L [facility] Anion gap 7 2 - 15 mmol/L [facility] BUN 12 8 - 25 mg/dL [facility] Creatinine 0.78(L) 0.80 - 1.30 mg/dL [facility] Glucose 271(H) 70 - 199 mg/dL [facility] Comment: Interpretive Data Fasting glucose [...] 2017. Calcium 8.6 8.5 - 10.3 mg/dL [facility] Blood specimen (specimen) 11/25/2018 5:36 AM QUALITY TECHNICIAN 11/25/2018 6:16 AM QUALITY TECHNICIAN Narrative [facility] - 11/25/2018 6:44 AM QUALITY TECHNICIAN Daily except Saturday and . Morning draw. us Josué Del Valle MD PhD LAB BLOOD ORDERABLES Fin al Result [facility] [place] [address] * POCT glucose (11/24/2018 10:39 PM QUALITY TECHNICIAN) Glucose, POC 89 70 - 199 mg/dL [facility] Blood specimen (specimen) 11/24/2018 10:39 PM QUALITY TECHNICIAN 11/24/2018 10:39 PM QUALITY TECHNICIAN Narrative [facility] - 11/24/2018 10:50 PM QUALITY TECHNICIAN us Josué Del Valle MD PhD LAB POCT ORDERABLES - DE VICE Final Result Performing Organization Address [facility] Phone Number [facility] [place] [address] * POCT glucose (11/24/2018 7:56 PM QUALITY TECHNICIAN) Glucose, POC 164 70 - 199 mg/dL [facility] Blood specimen (specimen) 11/24/2018 7:56 PM QUALITY TECHNICIAN 11/24/2018 7:56 PM QUALITY TECHNICIAN Narrative [facility] - 11/24/2018 8:10 PM QUALITY TECHNICIAN us Josué Del Valle MD PhD LAB POCT ORDERABLES - DE VICE Final Result Performing Organization Address [facility] de Phone Number [facility] Department [place] [address] * (ABNORMAL) POCT glucose (11/24/2018 12:46 PM QUALITY TECHNICIAN) Glucose, POC 299(H) 70 - 199 mg/dL [facility] Blood specimen (specimen) 11/24/2018 12:46 PM QUALITY TECHNICIAN 11/24/2018 12:46 PM QUALITY TECHNICIAN Narrative [facility] - 11/24/2018 12:56 PM QUALITY TECHNICIAN us Josué Del Valle MD PhD LAB POCT ORDERABLES - DE VICE Final Result Performing Organization Address [facility] de Phone Number [facility] [place] [address] * (ABNORMAL) POCT glucose (11/24/2018 10:25 AM QUALITY TECHNICIAN) Glucose, POC 315(H) 70 - 199 mg/dL [facility] Blood specimen (specimen) 11/24/2018 10:25 AM QUALITY TECHNICIAN 11/24/2018 10:25 AM QUALITY TECHNICIAN Narrative [facility] - 11/24/2018 10:36 AM QUALITY TECHNICIAN Josué Del Valle MD PhD LAB POCT ORDERABLES - DE VICE Final Result Performing Organization Address City/[facility] Co de Phone Number [facility] [place] [address] * (ABNORMAL) POCT glucose (11/24/2018 7:47 AM QUALITY TECHNICIAN) Glucose, POC 460(C) 70 - 199 mg/dL [facility] Glucose comment 1 Doctor Notified [facility] Blood specimen (specimen) 11/24/2018 7:47 AM QUALITY TECHNICIAN 11/24/2018 7:47 AM QUALITY TECHNICIAN Narrative [facility] - 11/24/2018 8:00 AM QUALITY TECHNICIAN us Josué Del Valle MD PhD LAB POCT ORDERABLES - DE VICE Final Result Performing Organization Address [facility] de Phone Number [facility] [place] [address] * Critical Result Callback Chemistry (11/24/2018 5:35 AM QUALITY TECHNICIAN) Date Notified [id number] [facility] Time Notified 633 [facility] TestName glucose [facility] Called/Read Back latia gustafson [facility] Credentials RN [facility] Called By [facility] Blood specimen (specimen) 11/24/2018 5:35 AM QUALITY TECHNICIAN 11/24/2018 5:56 AM QUALITY TECHNICIAN Narrative [facility] - 11/24/2018 6:35 AM QUALITY TECHNICIAN Josué Del Valle MD PhD LAB BLOOD ORDERABLES Fin al Result Performing Organization Address City/[facility] Co de Phone Number [facility] Department [place] [address] * (ABNORMAL) Manual Differential (11/24/2018 5:35 AM QUALITY TECHNICIAN) Differential Manual [facility] Cells Counted 112 [facility] Neutrophil abs 9.5(H) 1.7 - 6.5 K/cumm [facility] Imm gran abs 0.0 0.0 - 0.1 K/cumm [facility] Lymphocyte abs 1.4 0.8 - 3.3 K/cumm [facility] Monocyte abs 0.8 0.2 - 0.8 K/cumm [facility] Neutrophil pct 81.3 % [facility] Comment: Interpretive Data Percent cell count reference ranges are not reported, since discordance with absolute values may lead to misinterpretation of CBC data. Current Interpretive Data was last revised on 2018. Lymphocyte pct 10.7 % [facility] Comment: Interpretive Data Percent cell count reference ranges are not reported, since discordance with absolute values may lead to misinterpretation of CBC data. Current Interpretive Data was last revised on 2018. Monocyte pct 7.1 % [facility] Comment: Interpretive Data Percent cell count reference ranges are not reported, since discordance with absolute values may lead to misinterpretation of CBC data. Current Interpretive Data was last revised on 2018. Variant lymph pct 0.9(H) 0.0 - 0.0 % [facility] RBC morphology Present(A) [facility] Anisocytosis Slight(A) [facility] Poikilocytosis Marked(A) [facility] Macrocytes 3-7/HPF(A) [facility] Echinocytes > 15/HPF(A) [facility] Teardrop cells 3-7/HPF(A) [facility] Platelet estimate Adequate [facility] Blood specimen (specimen) 11/24/2018 5:35 AM QUALITY TECHNICIAN 11/24/2018 5:56 AM QUALITY TECHNICIAN Narrative [facility] - 11/24/2018 6:41 AM QUALITY TECHNICIAN Josué Del Valle MD PhD LAB BLOOD ORDERABLES Arun tamiko Result - Final [facility] Department [place] [address] * (ABNORMAL) CBC without differential (11/24/2018 5:35 AM QUALITY TECHNICIAN) Pathologist [facility] WBC 11.7(H) 3.8 - 9.9 K/cumm [facility] Hgb 14.8 13.0 - 17.5 g/dL [facility] Hct 42.7 38.9 - 50.3 % [facility] Plt 155 150 - 400 K/cumm [facility] MPV 10.7 9.1 - 12.3 fL [facility] RBC 4.13(L) 4.30 - 5.80 M/cumm [facility] MCV 103.4(H) 81.3 - 96.4 fL [facility] MCH 35.8(H) 27.1 - 33.3 pg [facility] MCHC 34.7 32.3 - 35.7 g/dL [facility] RDW CV 13.5 11.1 - 14.9 % [facility] RDW SD 51.3(H) 35.7 - 48.1 fL [facility] NRBC abs 0.00 0.00 - 0.01 K/cumm [facility] Blood specimen (specimen) 11/24/2018 5:35 AM QUALITY TECHNICIAN 11/24/2018 5:56 AM QUALITY TECHNICIAN Narrative [facility] - 11/24/2018 6:09 AM QUALITY TECHNICIAN Josué Del Valle MD PhD LAB BLOOD ORDERABLES Fin al Result Performing Organization Address [facility]/ZIP Co de Phone Number [facility] Department [place] [address] * Phosphorus (11/24/2018 5:35 AM QUALITY TECHNICIAN) Pathologist [facility] Phosphorus, pl 3.1 2.3 - 4.5 mg/dL [facility] Blood specimen (specimen) 11/24/2018 5:35 AM QUALITY TECHNICIAN 11/24/2018 5:56 AM QUALITY TECHNICIAN Narrative [facility] - 11/24/2018 6:24 AM QUALITY TECHNICIAN Josué Del Valle MD PhD LAB BLOOD ORDERABLES Fin al Result Performing Organization Address [facility] de Phone Number [facility] Department [place] [address] * Magnesium (11/24/2018 5:35 AM QUALITY TECHNICIAN) [facility] Magnesium 1.5 1.4 - 2.5 mg/dL [facility] Blood specimen (specimen) 11/24/2018 5:35 AM QUALITY TECHNICIAN 11/24/2018 5:56 AM QUALITY TECHNICIAN Narrative [facility] - 11/24/2018 6:24 AM QUALITY TECHNICIAN Josué Del Valle MD PhD LAB BLOOD ORDERABLES Fin al Result Performing Organization Address [facility] de Phone Number [facility] Department [place] [address] * (ABNORMAL) Protime-INR (11/24/2018 5:35 AM QUALITY TECHNICIAN) Pathologist [facility] PT 16.1(H) 8.5 - 13.0 sec [facility] INR 1.49(H) 0.80 - 1.21 [facility] Comment: Interpretive Data Inpatient therapeutic ranges* Atrial fibrillation ?2.0-3.0 INR Venous thrombo-embolism ?2.0-3.0 INR Bioprosthetic heart valve ?* Mechanical heart valve, bileaflet or tilting disk,aortic position ? 2.0-3.0 INR All other,or bileaflet or tilting disk, in mitral position ? 2.5-3.5 INR *See the pharmacy resource directory (PHRED) for an updated copy of the Tool Book at [email or web address] Current Interpretive Data was last revised 2012. Blood specimen (specimen) 11/24/2018 5:35 AM QUALITY TECHNICIAN 11/24/2018 5:52 AM QUALITY TECHNICIAN Narrative [facility] - 11/24/2018 6:22 AM QUALITY TECHNICIAN Josué Del Valle MD PhD LAB BLOOD ORDERABLES Fin al Result Performing Organization Address [facility] de Phone Number [facility] Department [place] [address] * aPTT (11/24/2018 5:35 AM QUALITY TECHNICIAN) aPTT 34.1 25.0 - 37.0 sec [facility] Comment: Interpretive Data Therapeutic heparin range:60.0 - 94.0 sec based on correlation with therapeutic heparin activity range of 0.3 -0.7 Units/mL. Current interpretive data was last revised on 2011. Blood specimen (specimen) 11/24/2018 5:35 AM QUALITY TECHNICIAN 11/24/2018 5:52 AM [facility] Narrative [facility] - 11/24/2018 6:22 AM QUALITY TECHNICIAN Josué Del Valle MD PhD LAB BLOOD ORDERABLES Fin al Result Performing Organization Address [facility] de Phone Number [facility] [place] [address] * (ABNORMAL) Lactate dehydrogenase (LD) (11/24/2018 5:35 AM QUALITY TECHNICIAN) Lactate dehydrogenase (LDH) 386(H) 100 - 250 Units/L [facility] Blood specimen (specimen) 11/24/2018 5:35 AM QUALITY TECHNICIAN 11/24/2018 5:56 AM QUALITY TECHNICIAN Narrative [facility] - 11/24/2018 6:24 AM QUALITY TECHNICIAN Saturday and only. Morning draw. Josué Del Valle MD PhD LAB BLOOD ORDERABLES Fin al Result Performing Organization Address [facility] de Phone Number [facility] [place] [address] * Uric acid (11/24/2018 5:35 AM QUALITY TECHNICIAN) Pathologist [facility] Uric acid 3.0 3.0 - 8.0 mg/dL [facility] Blood specimen (specimen) 11/24/2018 5:35 AM QUALITY TECHNICIAN 11/24/2018 5:56 AM QUALITY TECHNICIAN Narrative [facility] - 11/24/2018 6:24 AM QUALITY TECHNICIAN Saturday and only. Morning draw. . Josué Del Valle MD PhD LAB BLOOD ORDERABLES Fin al Result Performing Organization Address [facility] de Phone Number [facility] [place] [address] * (ABNORMAL) Comprehensive metabolic panel (11/24/2018 5:35 AM QUALITY TECHNICIAN) Pathologist [facility] Sodium 135 135 - 145 mmol/L [facility] Potassium, pl 4.4 3.3 - 4.9 mmol/L [facility] Chloride 96(L) 97 - 110 mmol/L [facility] CO2 31 22 - 32 mmol/L [facility] Anion gap 8 2 - 15 mmol/L [facility] BUN 16 8 - 25 mg/dL [facility] Creatinine 0.81 0.80 - 1.30 mg/dL [facility] Glucose 470(C) 70 - 199 mg/dL [facility] Comment: Interpretive Data Fasting glucose [...] 2017. Calcium 8.8 8.5 - 10.3 mg/dL [facility] Bilirubin, total 0.6 0.1 - 1.2 mg/dL [facility] Protein, pl 6.1(L) 6.5 - 8.5 g/dL [facility] Albumin 3.6 3.5 - 5.0 g/dL [facility] Alk phos 73 40 - 130 Units/L [facility] ALT 29 7 - 55 Units/L [facility] AST 25 10 - 50 Units/L [facility] Blood specimen (specimen) 11/24/2018 5:35 AM QUALITY TECHNICIAN 11/24/2018 5:56 AM QUALITY TECHNICIAN Narrative [facility] - 11/24/2018 6:29 AM QUALITY TECHNICIAN Saturday and only. Morning draw. us Josué Del Valle MD PhD LAB BLOOD ORDERABLES Fin al Result [facility] Department [place] [address] * Type and screen (11/24/2018 5:35 AM QUALITY TECHNICIAN) ABO Rh A Positive [facility] Ursula, indirect Negative [facility] Blood specimen (specimen) 11/24/2018 5:35 AM QUALITY TECHNICIAN 11/24/2018 5:56 AM QUALITY TECHNICIAN Narrative [facility] - 11/24/2018 7:39 AM QUALITY TECHNICIAN Has the patient had Daratumumab (Darzalex) in the past 6 months?->Unknown us Josué Del Valle MD PhD LAB BLOOD BANK TEST ORDE BAKARI Final Result [facility] [place] [address] * (ABNORMAL) POCT glucose (11/23/2018 9:33 PM QUALITY TECHNICIAN) Glucose, POC 316(H) 70 - 199 mg/dL [facility] Glucose comment 1 RN Notified [facility] Blood specimen (specimen) 11/23/2018 9:33 PM QUALITY TECHNICIAN 11/23/2018 9:33 PM QUALITY TECHNICIAN Narrative [facility] - 11/23/2018 9:44 PM QUALITY TECHNICIAN us Josué Del Valle MD PhD LAB POCT ORDERABLES - DE VICE Final Result Performing Organization Address City/[facility]/ZIP Co de Phone Number [facility] [place] [address] * (ABNORMAL) POCT glucose (11/23/2018 5:37 PM QUALITY TECHNICIAN) [facility] Glucose, POC 249(H) 70 - 199 mg/dL [facility] Blood specimen (specimen) 11/23/2018 5:37 PM QUALITY TECHNICIAN 11/23/2018 5:37 PM QUALITY TECHNICIAN Narrative [facility] - 11/23/2018 5:58 PM QUALITY TECHNICIAN us Josué Del Valle MD PhD LAB POCT ORDERABLES - DE VICE Final Result [facility] [place] [address] * POCT glucose (11/23/2018 12:38 PM QUALITY TECHNICIAN) Glucose, POC 151 70 - 199 mg/dL [facility] Blood specimen (specimen) 11/23/2018 12:38 PM QUALITY TECHNICIAN 11/23/2018 12:38 PM QUALITY TECHNICIAN Narrative [facility] - 11/23/2018 12:49 PM QUALITY TECHNICIAN Josué Del Valle MD PhD LAB POCT ORDERABLES - DE VICE Final Result Performing Organization Address City/[facility] Co de Phone Number [facility] [place] [address] * (ABNORMAL) POCT glucose (11/23/2018 9:15 AM QUALITY TECHNICIAN) Glucose, POC 333(H) 70 - 199 mg/dL [facility] Blood specimen (specimen) 11/23/2018 9:15 AM QUALITY TECHNICIAN 11/23/2018 9:15 AM QUALITY TECHNICIAN Narrative [facility] - 11/23/2018 9:26 AM QUALITY TECHNICIAN Josué Del Valle MD PhD LAB POCT ORDERABLES - DE VICE Final Result Performing Organization Address [facility] Co de Phone Number [facility] [place] [address] * (ABNORMAL) Hemoglobin A1c (11/23/2018 4:43 AM QUALITY TECHNICIAN) Hgb A1C 14.2(H) 4.0 - 5.6 % [facility] Estimated Average Glucose 361 mg/dL [facility] Comment: The ADA recommends reporting an estimated Average Glucose (eAG) with all Hemoglobin A1c results using the equation derived from a study of 507 normal and diabetic adults. ??Minority populations were underrepresented and children were not included. ?? (Diabetes Care 31:9385-4026, 2008). ??The eAG is not equivalent to a fasting glucose. Blood specimen (specimen) 11/23/2018 4:43 AM QUALITY TECHNICIAN 11/23/2018 5:06 AM QUALITY TECHNICIAN Narrative [facility] - 11/23/2018 9:22 AM QUALITY TECHNICIAN Josué Del Valle MD PhD LAB BLOOD ORDERABLES Fin al Result Performing Organization Address City/[facility] Co de Phone Number [facility] [place] [address] * (ABNORMAL) Basic metabolic panel (11/23/2018 4:43 AM QUALITY TECHNICIAN) [facility] Sodium 137 135 - 145 mmol/L [facility] Potassium, pl 4.8 3.3 - 4.9 mmol/L [facility] Comment:Hemolyzed; (+++); po tassium value may be falsely elevated by as much as 0.6 - 1.0 mmol/L. Suggest redraw and reanalysis. Chloride 99 97 - 110 mmol/L [facility] CO2 31 22 - 32 mmol/L [facility] Anion gap 7 2 - 15 mmol/L [facility] BUN 11 8 - 25 mg/dL [facility] Creatinine 0.85 0.80 - 1.30 mg/dL [facility] Glucose 223(H) 70 - 199 mg/dL [facility] Comment: Interpretive Data Fasting glucose [...] 2017. Calcium 8.7 8.5 - 10.3 mg/dL [facility] Blood specimen (specimen) 11/23/2018 4:43 AM QUALITY TECHNICIAN 11/23/2018 4:59 AM QUALITY TECHNICIAN Narrative [facility] - 11/23/2018 5:34 AM QUALITY TECHNICIAN us Josué Del Valle MD PhD LAB BLOOD ORDERABLES Fin al Result [facility] Department [place] [address] * (ABNORMAL) Manual Differential (11/23/2018 4:43 AM QUALITY TECHNICIAN) [facility] Differential Manual [facility] Cells Counted 115 [facility] Neutrophil abs 8.4(H) 1.7 - 6.5 K/cumm [facility] Imm gran abs 0.1 0.0 - 0.1 K/cumm [facility] Lymphocyte abs 1.2 0.8 - 3.3 K/cumm [facility] Monocyte abs 0.4 0.2 - 0.8 K/cumm [facility] Neutrophil pct 82.6 % [facility] Comment: Interpretive Data Percent cell count reference ranges are not reported, since discordance with absolute values may lead to misinterpretation of CBC data. Current Interpretive Data was last revised on 2018. Lymphocyte pct 7.8 % [facility] Comment: Interpretive Data Percent cell count reference ranges are not reported, since discordance with absolute values may lead to misinterpretation of CBC data. Current Interpretive Data was last revised on 2018. Monocyte pct 4.4 % [facility] Comment: Interpretive Data Percent cell count reference ranges are not reported, since discordance with absolute values may lead to misinterpretation of CBC data. Current Interpretive Data was last revised on 2018. Myelocyte pct 0.9 % [facility] Variant lymph pct 4.3(H) 0.0 - 0.0 % [facility] RBC morphology Present(A) [facility] Anisocytosis Slight(A) [facility] Poikilocytosis Marked(A) [facility] Macrocytes 3-7/HPF(A) [facility] Target cells 3-7/HPF(A) [facility] Platelet estimate Adequate [facility] Blood specimen (specimen) 11/23/2018 4:43 AM QUALITY TECHNICIAN 11/23/2018 5:06 AM QUALITY TECHNICIAN Narrative [facility] - 11/23/2018 5:43 AM QUALITY TECHNICIAN Josué Del Valle MD PhD LAB BLOOD ORDERABLES Arun tamiko Result - Final [facility] Department [place] [address] * (ABNORMAL) CBC without differential (11/23/2018 4:43 AM QUALITY TECHNICIAN) WBC 10.2(H) 3.8 - 9.9 K/cumm [facility] Hgb 15.5 13.0 - 17.5 g/dL [facility] Hct 45.4 38.9 - 50.3 % [facility] Plt 152 150 - 400 K/cumm [facility] MPV 11.2 9.1 - 12.3 fL [facility] RBC 4.35 4.30 - 5.80 M/cumm [facility] MCV 104.4(H) 81.3 - 96.4 fL [facility] MCH 35.6(H) 27.1 - 33.3 pg [facility] MCHC 34.1 32.3 - 35.7 g/dL [facility] RDW CV 13.6 11.1 - 14.9 % [facility] RDW SD 52.7(H) 35.7 - 48.1 fL [facility] NRBC abs 0.00 0.00 - 0.01 K/cumm [facility] Blood specimen (specimen) 11/23/2018 4:43 AM QUALITY TECHNICIAN 11/23/2018 5:06 AM QUALITY TECHNICIAN Narrative [facility] - 11/23/2018 5:13 AM QUALITY TECHNICIAN us Josué Del Valle MD PhD LAB BLOOD ORDERABLES Fin al Result [facility] Department [place] [address] * Tacrolimus level trough (11/23/2018 4:43 AM QUALITY TECHNICIAN) Tacrolimus, trough <1.0 ng/mL [facility] Comment: Undetectable. ??Please verify that the correct immunosuppressant test was requested. Interpretive Data The therapeutic range for tacrolimus can vary by transplant organ type and sample timing but a trough range of 5 - 15 ng/mL is typical. Testing performed by liquid chromatography-tandem mass spectrometry (LC- MS/MS).This test was developed using an analyte specific reagent. Its performance characteristics were determined by the [facility] in a manner consistent with CLIA requirements. This test has not been cleared or approved by the U.S. Food and Drug Administration. Current interpretive data was last revised on 2016. Blood specimen (specimen) 11/23/2018 4:43 AM QUALITY TECHNICIAN 11/23/2018 5:06 AM QUALITY TECHNICIAN Narrative [facility] - 11/23/2018 6:11 AM QUALITY TECHNICIAN Josué Del Valle MD PhD LAB BLOOD ORDERABLES Fin al Result Performing Organization Address City/[facility] [place] [address] * Phosphorus (11/23/2018 4:43 AM QUALITY TECHNICIAN) Phosphorus, pl 3.4 2.3 - 4.5 mg/dL [facility] Blood specimen (specimen) 11/23/2018 4:43 AM QUALITY TECHNICIAN 11/23/2018 4:59 AM QUALITY TECHNICIAN Narrative [facility] - 11/23/2018 5:34 AM QUALITY TECHNICIAN Josué Del Valle MD PhD LAB BLOOD ORDERABLES Fin al Result Performing Organization Address [facility] de Phone Number [facility] Department [place] [address] * Magnesium (11/23/2018 4:43 AM QUALITY TECHNICIAN) Magnesium 1.5 1.4 - 2.5 mg/dL [facility] Blood specimen (specimen) 11/23/2018 4:43 AM QUALITY TECHNICIAN 11/23/2018 4:59 AM QUALITY TECHNICIAN Narrative [facility] - 11/23/2018 5:34 AM QUALITY TECHNICIAN Josué Del Valle MD PhD LAB BLOOD ORDERABLES Fin al Result Performing Organization Address City/[facility] Co de Phone Number [facility] Department [place] [address] * (ABNORMAL) POCT glucose (11/22/2018 9:52 PM QUALITY TECHNICIAN) Pathologist [facility] Glucose, POC 237(H) 70 - 199 mg/dL [facility] Blood specimen (specimen) 11/22/2018 9:52 PM QUALITY TECHNICIAN 11/22/2018 9:52 PM QUALITY TECHNICIAN Narrative [facility] - 11/22/2018 10:03 PM QUALITY TECHNICIAN us Josué Del Valle MD PhD LAB POCT ORDERABLES - DE VICE Final Result Performing Organization Address City/[facility]/ZIP Co de Phone Number [facility] [place] [address] * ECG 12 lead (11/22/2018 6:30 PM QUALITY TECHNICIAN) [facility] Ventricular Rate EKG/Min 81 BPM [facility] Atrial Rate 81 BPM [facility] WI-Interval (MSEC) 122 ms [facility] QRS-Interval (MSEC) 82 ms [facility] QT-Interval (MSEC) 356 ms [facility] QTc 413 ms [facility] P Conway 76 degrees [facility] R Conway 99 degrees [facility] T Conway 8 degrees [facility] Diagnosis Normal sinus rhythm Possible Left atrial [...] MILES M.D ([id number]) on 11/25/2018 2:28:23 PM [facility] 11/22/2018 6:30 PM QUALITY TECHNICIAN 11/25/2018 2:28 PM QUALITY TECHNICIAN us Josué Del Valle MD PhD ECG ORDERABLES Final Re sult [facility] * POCT glucose (11/22/2018 5:33 PM QUALITY TECHNICIAN) Glucose, POC 92 70 - 199 mg/dL [facility] Blood specimen (specimen) 11/22/2018 5:33 PM QUALITY TECHNICIAN 11/22/2018 5:33 PM QUALITY TECHNICIAN Narrative [facility] - 11/22/2018 5:44 PM QUALITY TECHNICIAN us Josué Del Valle MD PhD LAB POCT ORDERABLES - DE VICE Final Result Performing Organization Address [facility] Co de Phone Number [facility] Department [place] [address] * (ABNORMAL) POCT glucose (11/22/2018 2:15 PM QUALITY TECHNICIAN) Glucose, POC 319(H) 70 - 199 mg/dL [facility] Blood specimen (specimen) 11/22/2018 2:15 PM QUALITY TECHNICIAN 11/22/2018 2:15 PM QUALITY TECHNICIAN Narrative [facility] - 11/22/2018 2:29 PM QUALITY TECHNICIAN us Josué Del Valle MD PhD LAB POCT ORDERABLES - DE VICE Final Result Performing Organization Address [facility] Co de Phone Number [facility] Department [place] [address] * CT Chest PE W Contrast (11/22/2018 1:50 PM QUALITY TECHNICIAN) Anatomical Region Laterality Modality Body N/A Computed Tomogra phy 11/22/2018 2:08 PM QUALITY TECHNICIAN Impressions 11/22/2018 2:08 PM QUALITY TECHNICIAN 1. No evidence of pulmonary embolism. 2. Resolved right lower lobe consolidation and right-sided pleural effusion. 3. Improved peripancreatic fat stranding with a small amount of residual fat stranding seen along the superior margin of the pancreatic body compatible with improving pancreatitis. Recommend correlation with lipase levels. 4. Emphysema. Electronically signed by: Dayron Ayoub M.D. Narrative 11/22/2018 2:08 PM QUALITY TECHNICIAN EXAMINATION: ??Computed tomography of the chest with [...] by: Dayron Ayoub M.D. us Louise Resendiz RECIPROCATING DRILL OPERATOR IMG CT PROCEDURES Final Resu lt * CT head with contrast (11/22/2018 1:50 PM QUALITY TECHNICIAN) Anatomical Region Laterality Modality Head and Neck N/A Computed Tomogra phy 11/22/2018 2:40 PM QUALITY TECHNICIAN Impressions 11/22/2018 7:10 PM QUALITY TECHNICIAN 1. No acute intracranial abnormality. 2. Inflammatory sinusitis. Dictated by: Fela Miller M.D. Electronically signed by: Avinash Garces M.D. Narrative 11/22/2018 7:10 PM QUALITY TECHNICIAN EXAMINATION: Head CT with contrast HISTORY: Headache. [...] by: Avinash Garces M.D. us Louise Resendiz RECIPROCATING DRILL OPERATOR IMG CT PROCEDURES Final Resu lt * (ABNORMAL) POCT glucose (11/22/2018 12:35 PM QUALITY TECHNICIAN) Pathologist [facility] Glucose, POC 457(C) 70 - 199 mg/dL [facility] Glucose comment 1 Glu2: [facility] Blood specimen (specimen) 11/22/2018 12:35 PM QUALITY TECHNICIAN 11/22/2018 12:35 PM QUALITY TECHNICIAN Narrative [facility] - 11/22/2018 12:39 PM QUALITY TECHNICIAN us Josué Del Valle MD PhD LAB POCT ORDERABLES - DE VICE Final Result [facility] Department [place] [address] * (ABNORMAL) Urinalysis reflex to microscopic and culture Urine (11/22/2018 11:21 AM QUALITY TECHNICIAN) Color, ur Yellow Yellow [facility] Clarity, ur Clear Clear [facility] Specific gravity, ur >1.042(H) 1.010 - 1.025 [facility] pH, urine 6.0 [facility] Protein, ur ql Negative Negative [facility] Glucose, ur ql 3+(A) Negative [facility] Ketones, ur Negative Negative [facility] Bilirubin, ur Negative Negative [facility] Blood, ur Negative Negative [facility] Urobilinogen, ur <2.0 <2.0 mg/dL [facility] Nitrite, ur Negative Negative [facility] Leukocyte esterase, ur Negative Negative [facility] Urine 11/22/2018 11:2 1 AM QUALITY TECHNICIAN 11/22/2018 4:32 PM QUALITY TECHNICIAN Narrative [facility] - 11/22/2018 4:52 PM QUALITY TECHNICIAN ?? Urine pH is affected by diet, medications, systemic acid-base disturbances, and renal tubular function. ??pH may affect urinary stone formation. ??For example, urine pH below 6.0 may help reduce the tendency for calcium phosphate stones and pH greater than 6.0 may reduce the tendency for uric acid stone formation. Source: [facility] [employer]. Last revised 11-28-2017 us Louise Resendiz NP LAB MICROBIOLOGY - GENERAL O RDERABLES Final Result [facility] Department [place] [address] * Respiratory pathogen PCR Nasopharyngeal (11/22/2018 11:21 AM QUALITY TECHNICIAN) Report Final Report: Respiratory Pathogen nucleic acids NOT DETECTED (NEGATIVE) [facility] Nasopharyngeal 11/22/2018 11 :21 AM QUALITY TECHNICIAN 11/22/2018 1:17 PM QUALITY TECHNICIAN Narrative [facility] - 11/22/2018 2:36 PM QUALITY TECHNICIAN [employer] FilmArray Respiratory Panel (RP2) assay is a [...] FilmArray RP assay is FDA cleared for RECIPROCATING DRILL OPERATOR swabs. ??Additional sample types have been validated according to CLIA regulations. The performance characteristics of this assay have been determined by [facility] Infectious Disease [facility]. Current interpretive data was last revised on 2017. us Louise Resendiz RECIPROCATING DRILL OPERATOR LAB MICROBIOLOGY - GENERAL O RDERABLES Final Result [facility] Department [place] [address] * (ABNORMAL) Hemoglobin A1c (11/22/2018 11:20 AM QUALITY TECHNICIAN) Hgb A1C 14.3(H) 4.0 - 5.6 % [facility] Estimated Average Glucose 364 mg/dL [facility] Comment: The ADA recommends reporting an estimated Average Glucose (eAG) with all Hemoglobin A1c results using the equation derived from a study of 507 normal and diabetic adults. ??Minority populations were underrepresented and children were not included. ?? (Diabetes Care 31:6488-2774, 2008). ??The eAG is not equivalent to a fasting glucose. Blood specimen (specimen) 11/22/2018 11:20 AM QUALITY TECHNICIAN 11/22/2018 11:41 AM QUALITY TECHNICIAN Narrative [facility] - 11/23/2018 7:23 AM QUALITY TECHNICIAN us Josué Del Valle MD PhD LAB BLOOD ORDERABLES Fin al Result [facility] Department [place] [address] * (ABNORMAL) Differential, auto (11/22/2018 11:20 AM QUALITY TECHNICIAN) Neutrophil abs 9.0(H) 1.7 - 6.5 K/cumm [facility] Imm gran abs 0.1 0.0 - 0.1 K/cumm [facility] Lymphocyte abs 3.2 0.8 - 3.3 K/cumm [facility] Monocyte abs 1.1(H) 0.2 - 0.8 K/cumm [facility] Eosinophil abs 0.0 0.0 - 0.5 K/cumm [facility] Basophil abs 0.0 0.0 - 0.1 K/cumm [facility] Neutrophil pct 66.3 % [facility] Comment: Interpretive Data Percent cell count reference ranges are not reported, since discordance with absolute values may lead to misinterpretation of CBC data. Current Interpretive Data was last revised on 2018. Imm gran pct 1.0 % [facility] Comment: Interpretive Data Percent cell count reference ranges are not reported, since discordance with absolute values may lead to misinterpretation of CBC data. Current Interpretive Data was last revised on 2018. Lymphocyte pct 24.0 % [facility] Comment: Interpretive Data Percent cell count reference ranges are not reported, since discordance with absolute values may lead to misinterpretation of CBC data. Current Interpretive Data was last revised on 2018. Monocyte pct 8.2 % [facility] Comment: Interpretive Data Percent cell count reference ranges are not reported, since discordance with absolute values may lead to misinterpretation of CBC data. Current Interpretive Data was last revised on 2018. Eosinophil pct 0.3 % [facility] Comment: Interpretive Data Percent cell count reference ranges are not reported, since discordance with absolute values may lead to misinterpretation of CBC data. Current Interpretive Data was last revised on 2018. Basophil pct 0.2 % [facility] Comment: Interpretive Data Percent cell count reference ranges are not reported, since discordance with absolute values may lead to misinterpretation of CBC data. Current Interpretive Data was last revised on 2018. Blood specimen (specimen) 11/22/2018 11:20 AM QUALITY TECHNICIAN 11/22/2018 11:41 AM QUALITY TECHNICIAN Narrative [facility] - 11/22/2018 11:52 AM QUALITY TECHNICIAN Louise Resendiz RECIPROCATING DRILL OPERATOR LAB BLOOD ORDERABLES Final R esult Performing Organization Address City/[facility]/ZIP Co de Phone Number [facility] Department [place] [address] * Type and screen (11/22/2018 11:20 AM QUALITY TECHNICIAN) ABO Rh A Positive [facility] Ursula, indirect Negative [facility] Blood specimen (specimen) 11/22/2018 11:20 AM QUALITY TECHNICIAN 11/22/2018 11:48 AM QUALITY TECHNICIAN Narrative [facility] - 11/22/2018 12:41 PM QUALITY TECHNICIAN Has the patient had Daratumumab (Darzalex) in the past 6 months?->Unknown Louise Resendiz RECIPROCATING DRILL OPERATOR LAB BLOOD BANK TEST ORDERABL ES Final Result Performing Organization Address [facility] Co de Phone Number [facility] Department [place] [address] * Blood culture Blood (11/22/2018 11:20 AM QUALITY TECHNICIAN) Report Final Report: No growth [facility] Blood specimen (specimen) (Antecubital, right) 11/22/2018 11:20 AM QUALITY TECHNICIAN 11/22/2018 1:57 PM QUALITY TECHNICIAN Narrative [facility] - 11/27/2018 4:00 PM QUALITY TECHNICIAN Blood cultures are incubated for five days [...] performance characteristics have been verified by the [facility] Microbiology Laboratory. Current Interpretive Data was last revised on 2014. Louise Resendiz LAB MICROBIOLOGY - GENERAL O RDERABLES Final Result [facility] Department [place] [address] * Blood culture Blood (11/22/2018 11:20 AM QUALITY TECHNICIAN) Report Final Report: No growth [facility] Blood specimen (specimen) (Antecubital, left) 11/22/2018 11:20 AM QUALITY TECHNICIAN 11/22/2018 1:56 PM QUALITY TECHNICIAN Narrative [facility] - 11/27/2018 4:00 PM [facility] Blood cultures are incubated for five days [...] performance characteristics have been verified by the [facility]biology Laboratory. Current Interpretive Data was last revised on 2014. Louise Resendiz NP LAB MICROBIOLOGY - GENERAL O RDERABLES Final Result Performing Organization Address [facility] de Phone Number [facility] [place] [address] * (ABNORMAL) Lactate (11/22/2018 11:20 AM QUALITY TECHNICIAN) Lactate 3.8(H) 0.7 - 2.0 mmol/L [facility] Blood specimen (specimen) 11/22/2018 11:20 AM QUALITY TECHNICIAN 11/22/2018 11:42 AM QUALITY TECHNICIAN Narrative [facility] - 11/22/2018 12:29 PM QUALITY TECHNICIAN Louise Resendiz RECIPROCATING DRILL OPERATOR LAB BLOOD ORDERABLES Final R esult Performing Organization Address [facility] [place] [address] * (ABNORMAL) Phosphorus (11/22/2018 11:20 AM QUALITY TECHNICIAN) Phosphorus, pl 1.6(L) 2.3 - 4.5 mg/dL [facility] Blood specimen (specimen) 11/22/2018 11:20 AM QUALITY TECHNICIAN 11/22/2018 11:42 AM QUALITY TECHNICIAN Narrative [facility] - 11/22/2018 12:09 PM QUALITY TECHNICIAN Louise Resendiz RECIPROCATING DRILL OPERATOR LAB BLOOD ORDERABLES Final R esult Performing Organization Address [facility] Co de Phone Number [facility] [place] [address] * Magnesium (11/22/2018 11:20 AM QUALITY TECHNICIAN) Magnesium 1.4 1.4 - 2.5 mg/dL [facility] Blood specimen (specimen) 11/22/2018 11:20 AM QUALITY TECHNICIAN 11/22/2018 11:42 AM QUALITY TECHNICIAN Narrative [facility] - 11/22/2018 12:09 PM QUALITY TECHNICIAN us Louise Resendiz NP LAB BLOOD ORDERABLES Final R esult [facility] Department [place] [address] * (ABNORMAL) Comprehensive metabolic panel (11/22/2018 11:20 AM QUALITY TECHNICIAN) Sodium 132(L) 135 - 145 mmol/L [facility] Potassium, pl 4.3 3.3 - 4.9 mmol/L [facility] Chloride 93(L) 97 - 110 mmol/L [facility] CO2 29 22 - 32 mmol/L [facility] Anion gap 10 2 - 15 mmol/L [facility] BUN 13 8 - 25 mg/dL [facility] Creatinine 0.92 0.80 - 1.30 mg/dL [facility] Glucose 438(H) 70 - 199 mg/dL [facility] Comment: Interpretive Data Fasting glucose [...] 2017. Calcium 9.2 8.5 - 10.3 mg/dL [facility] Bilirubin, total 0.8 0.1 - 1.2 mg/dL [facility] Protein, pl 6.5 6.5 - 8.5 g/dL [facility] Albumin 3.5 3.5 - 5.0 g/dL [facility] Alk phos 76 40 - 130 Units/L [facility] ALT 28 7 - 55 Units/L [facility] AST 18 10 - 50 Units/L [facility] Blood specimen (specimen) 11/22/2018 11:20 AM QUALITY TECHNICIAN 11/22/2018 11:42 AM QUALITY TECHNICIAN Narrative [facility] - 11/22/2018 12:09 PM QUALITY TECHNICIAN us Louise Resendiz NP LAB BLOOD ORDERABLES Final R esult [facility] Department [place] [address] * (ABNORMAL) CBC with auto differential (11/22/2018 11:20 AM QUALITY TECHNICIAN) WBC 13.5(H) 3.8 - 9.9 K/cumm [facility] Hgb 17.1 13.0 - 17.5 g/dL [facility] Hct 48.3 38.9 - 50.3 % [facility] Plt 151 150 - 400 K/cumm [facility] MPV 11.6 9.1 - 12.3 fL [facility] RBC 4.67 4.30 - 5.80 M/cumm [facility] [facility] 103.4(H) 81.3 - 96.4 fL [facility] MCH 36.6(H) 27.1 - 33.3 pg [facility] MCHC 35.4 32.3 - 35.7 g/dL [facility] RDW CV 13.3 11.1 - 14.9 % [facility] RDW SD 50.8(H) 35.7 - 48.1 fL [facility] NRBC abs 0.00 0.00 - 0.01 K/cumm [facility] Blood specimen (specimen) 11/22/2018 11:20 AM QUALITY TECHNICIAN 11/22/2018 11:41 AM QUALITY TECHNICIAN Narrative [facility] - 11/22/2018 11:52 AM QUALITY TECHNICIAN us Louise Resendiz NP LAB BLOOD ORDERABLES Final R esult [facility] Department [place] [address] documented in this encounter Visit Diagnoses Diagnosis Sinusitis- Primary Unspecified sinusitis (chronic) Dehydration Chemotherapy induced nausea and vomiting Infection Unspecified infectious and parasitic diseases Type 2 diabetes mellitus with hyperosmolarity without coma, with long-term current use of insulin (HCC) Electrolyte imbalance Electrolyte and fluid disorders not elsewhere classified 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) Type 2 diabetes mellitus with hyperglycemia, with long-term current use of insulin (HCC) Zhnwb-uotgvw-piex disease (HCC) H/O allogeneic bone marrow transplant [...] ReactionIndications:Prophylaxis Transfusion Reaction Given 11/22/2018 5:51 PM QUALITY TECHNICIAN 650 mg acyclovir (ZOVIRAX) tablet 400 mg 400 mg, oral, Every 8 hours, First dose on 11/22/18 at 1815, Indications: Prophylaxis, MedicalIndications:Prophylaxis, Medical Given 11/25/2018 5:29 PM QUALITY TECHNICIAN 400 mg Given 11/25/2018 8:09 AM QUALITY TECHNICIAN 400 mg Given 11/25/2018 2:14 AM QUALITY TECHNICIAN 400 mg albuterol (PROVENTIL,VENTOLIN) 2.5 mg /3 mL (0.083 %) nebulizer solution 2.5 mg 2.5 mg, nebulization, 4 times daily (incident response coordinator), First dose on Sat11/24/18 at 1200 Given 11/25/2018 4:57 PM QUALITY TECHNICIAN 2.5 mg Given 11/25/2018 1:07 PM QUALITY TECHNICIAN 2.5 mg Given 11/25/2018 8:20 AM QUALITY TECHNICIAN 2.5 mg albuterol (PROVENTIL,VENTOLIN) 2.5 mg/0.5 mL nebulizer solution 5 mg 5 mg, nebulization, 4 times daily (incident response coordinator), First dose on 11/22/18 at 1900 Given 11/24/2018 8:34 AM QUALITY TECHNICIAN 5 mg Given 11/23/2018 8:02 PM QUALITY TECHNICIAN 5 mg Given 11/23/2018 11:52 AM QUALITY TECHNICIAN 5 mg atorvastatin (LIPITOR) tablet 40 mg 40 mg, oral, Daily, First dose on 11/22/18 at 1815 Given 11/25/2018 8:09 AM QUALITY TECHNICIAN 40 mg Given 11/24/2018 8:18 AM QUALITY TECHNICIAN 40 mg Given 11/23/2018 9:11 AM QUALITY TECHNICIAN 40 mg cefepime (MAXIPIME) 1000 mg/10 mL in sterile water (premix) 1,000 mg 1,000 mg, intravenous, at 20 mL/hr, Administer over 30 Minutes, Once, On 11/22/18 at 1310, For 1 dose, Indications: Sepsis Syndrome, FeverIndications:Sepsis Syndrome,Fever New Bag 11/22/2018 1:01 PM QUALITY TECHNICIAN 1,000 mg 20 mL/hr cefepime (MAXIPIME) 1000 mg/10 mL in sterile water (premix) 1,000 mg 1,000 mg, intravenous, at 20 mL/hr, Administer over 30 Minutes, Every 8 hours scheduled, First dose on Sat11/23/18 at 1400, Indications: Neutropenic FeverIndications:Neutropenic Fever New Bag 11/24/2018 5:06 AM QUALITY TECHNICIAN 1,000 mg 20 mL/hr New Bag 11/23/2018 9:54 PM QUALITY TECHNICIAN 1,000 mg 20 mL/hr New Bag 11/23/2018 5:38 PM QUALITY TECHNICIAN 1,000 mg 20 mL/hr dextrose (concentrated solution) [...] Call MD for each episode of hypoglycemia. SITE SAFETY REPRESENTATIVE STATES GLUTOSE-15 CONTAINS GLUCOSE 40% W/W (50% [...] Call MD for each episode of hypoglycemia. SITE SAFETY REPRESENTATIVE STATES GLUTOSE-15 CONTAINS GLUCOSE 40% W/W (50% W/V), Indications: hypoglycemic disorderIndications:hypoglycemic disorder fludrocortisone tablet 0.1 mg 0.1 mg, oral, 2 times daily, First dose on Sat11/22/18 at 2100 Given 11/25/2018 8:09 AM QUALITY TECHNICIAN 0.1 mg Given 11/24/2018 8:16 PM QUALITY TECHNICIAN 0.1 mg Given 11/24/2018 8:18 AM QUALITY TECHNICIAN 0.1 mg fluticasone-salmeterol (ADVAIR DISKUS) 100-50 mcg/dose diskus inhaler 1 puff 1 puff, inhalation, 2 times daily (incident response coordinator), First dose on Sat11/22/18 at 2000, Rinse mouth with water after use. Do not swallow. Given 11/24/2018 8:34 AM QUALITY TECHNICIAN 1 puff Given 11/23/2018 8:02 PM QUALITY TECHNICIAN 1 puff Given 11/23/2018 9:10 AM QUALITY TECHNICIAN 1 puff fluticasone-salmeterol (ADVAIR DISKUS) 100-50 mcg/dose diskus inhaler 1 puff 1 puff, inhalation, 2 times daily, First dose (after last modification) on Sat11/24/18 at 2100, NURSING TO ADMINISTER Rinse mouth with water after use. Do not swallow. Given 11/25/2018 8:14 AM QUALITY TECHNICIAN 1 puff Given 11/24/2018 8:18 PM QUALITY TECHNICIAN 1 puff gabapentin (NEURONTIN) capsule 300 mg 300 mg, oral, Nightly PRN, insomnia, leg pain, Starting on 11/22/18 at 1734 Given 11/24/2018 8:49 PM QUALITY TECHNICIAN 300 mg Given 11/23/2018 11:18 PM QUALITY TECHNICIAN 300 mg glucagon injection 1 mg 1 [...] Diabetes MellitusIndications:Diabetes Mellitus Given 11/25/2018 8:05 AM QUALITY TECHNICIAN 13 Units Right Lower Abdomen Given 11/24/2018 8:15 AM QUALITY TECHNICIAN 13 Units Le ft Lower Abdomen insulin [...] Diabetes MellitusIndications:Diabetes Mellitus Given 11/23/2018 9:54 PM QUALITY TECHNICIAN 4 Units Left Upper Arm Given 11/22/2018 11:16 PM QUALITY TECHNICIAN 3 Units R ight Upper Arm insulin [...] Diabetes MellitusIndications:Diabetes Mellitus Given 11/25/2018 5:30 PM QUALITY TECHNICIAN 7 Units Right Lower Abdomen Given 11/25/2018 12:35 PM QUALITY TECHNICIAN 2 Units L eft Lower Abdomen Given 11/25/2018 8:05 AM QUALITY TECHNICIAN 7 Units Ri ght Lower Abdomen insulin lispro (HumaLOG) injection 12 Units 12 Units, subcutaneous, Once, On 11/22/18 at 1320, For 1 dose, Indications: HyperglycemiaIndications:Hyp erglycemia Given 11/22/2018 1:03 PM QUALITY TECHNICIAN 12 Units Right Upper Abdomen insulin lispro (HumaLOG) injection 12 Units 12 Units, subcutaneous, Once, On 11/24/18 at 0830, For 1 dose, insteasd of AM slide and premeal. Give lantus now as well Given 11/24/2018 8:14 AM QUALITY TECHNICIAN 12 Units Left Lower Abdomen insulin lispro (HumaLOG) injection 5 Units 5 Units, subcutaneous, 3 times daily with meals, First dose on 11/23/18 at 1230, Administer pre-meal doses when pts food tray arrives in room. Do not administer pre-meal doses to NPO patients. Given 11/25/2018 5:30 PM QUALITY TECHNICIAN 5 Units Right Lower Abdomen Given 11/25/2018 12:35 PM QUALITY TECHNICIAN 5 Units L eft Lower Abdomen Given 11/25/2018 8:05 AM QUALITY TECHNICIAN 5 Units Ri ght Lower Abdomen ioversol (OPTIRAY 350) syringe syringe 100 mL 100 mL, intravenous, Once in imaging, contrast, Starting on Sat11/22/18 at 1341, For 1 dose Given 11/22/2018 1:43 PM QUALITY TECHNICIAN 100 mL levoFLOXacin (LEVAQUIN) tablet 750 mg 750 mg, oral, Daily (early AM), First dose on Sat11/22/18 at 1655, For 5 doses, Give 2 hrs before or 2 hrs after MVI, antacids, or other products containing sucralfate, magnesium, aluminum, iron, or zinc. May be taken without regard to meals., Indications: Upper Respiratory/HEENT InfectionIndications:Upper Respiratory/HEENT Infection Given 11/23/2018 4:48 AM QUALITY TECHNICIAN 750 mg Given 11/22/2018 5:48 PM QUALITY TECHNICIAN 750 mg levoFLOXacin (LEVAQUIN) tablet 750 mg 750 mg, oral, Daily (early AM), First dose on Sat11/25/18 at 0600, Give 2 hrs before or 2 hrs after MVI, antacids, or other products containing sucralfate, magnesium, aluminum, iron, or zinc. May be taken without regard to meals., Indications: Upper Respiratory/HEENT InfectionIndications:Upper Respiratory/HEENT Infection Given 11/25/2018 5:27 AM QUALITY TECHNICIAN 750 mg magnesium sulfate 4 g/100 mL in water (premix) 4 g 4 g, intravenous, Administer over 90 Minutes, Every 4 hours PRN, magnesium replacement, Starting on Sat11/22/18 at 1531, For magnesium level of 1.2-1.5 mg/dL, Indications: hypomagnesemiaIndications:hypomagnesemia New Bag 11/25/2018 7:04 AM QUALITY TECHNICIAN 4 g metFORMIN XR (GLUCOPHAGE XR) tablet 500 mg 500 mg, oral, 2 times daily, First dose on Sat11/22/18 at 2100, Take with food Do not crush, chew, cut, dissolve, open or otherwise manipulate tablet/capsule. Given 11/23/2018 9:11 AM QUALITY TECHNICIAN 500 mg Given 11/22/2018 11:16 PM QUALITY TECHNICIAN 500 mg mycophenolate mofetil (CELLCEPT) tablet 1,000 mg 1,000 mg, oral, 2 times daily, First dose on Sat11/22/18 at 2100, Administer 2 hours before or 2 hours after all aluminum or magnesium containing products Do not crush, chew, cut, dissolve, open or otherwise manipulate tablet/capsule. Given 11/25/2018 8:09 AM QUALITY TECHNICIAN 1,000 m g Given 11/24/2018 8:17 PM QUALITY TECHNICIAN 1,000 mg Given 11/24/2018 8:18 AM QUALITY TECHNICIAN 1,000 mg nicotine (NICODERM CQ) 21 mg patch 24 hour 1 patch 1 patch, transdermal, Administer over 24 Hours, Daily, First dose on 11/22/18 at 1815 Medication Applied 11/25/2018 8:13 AM QUALITY TECHNICIAN 1 patch Right Arm Medication Applied 11/24/2018 9:14 AM QUALITY TECHNICIAN 1 patch Left Arm Medication Applied 11/23/2018 9:11 AM QUALITY TECHNICIAN 1 patch Behind Left Ear ofloxacin (OCUFLOX) 0.3 % ophthalmic solution 1 drop 1 drop, each eye, 4 times daily, First dose on 11/22/18 at 2100 Given 11/25/2018 5:31 PM QUALITY TECHNICIAN 1 drop Given 11/25/2018 12:32 PM QUALITY TECHNICIAN 1 drop Given 11/25/2018 8:10 AM QUALITY TECHNICIAN 1 drop ondansetron (ZOFRAN) injection 8 mg 8 mg, intravenous, Administer over 2 Minutes, Once, On 11/22/18 at 1155, For 1 doseIndications:Chemotherapy induced nausea and vomiting Given 11/22/2018 11:34 AM QUALITY TECHNICIAN 8 mg predniSONE (DELTASONE) tablet 10 mg 10 mg, oral, 2 times daily, First dose on 11/22/18 at 2100 Given 11/25/2018 8:09 AM QUALITY TECHNICIAN 10 mg Given 11/24/2018 8:17 PM QUALITY TECHNICIAN 10 mg Given 11/24/2018 8:18 AM QUALITY TECHNICIAN 10 mg rivaroxaban (XARELTO) tablet 20 mg 20 mg, oral, Daily with dinner, First dose on 11/22/18 at 1815, Administer doses greater than or equal to 15 mg/day with food; doses of 10 mg/day may be administered without regard to meals. If on heparin infusion, discontinue heparin infusion upon first administration of rivaroxaban., Indications: Venous ThrombosisIndications:Venous Thrombosis Given 11/25/2018 5:30 PM QUALITY TECHNICIAN 20 m g Given 11/24/2018 5:50 PM QUALITY TECHNICIAN 20 mg Given 11/23/2018 5:38 PM QUALITY TECHNICIAN 20 mg sod phos,di- & mono-K phos mono (RON-JZ-GYHJXWC) tablet 500 mg 500 mg, oral, Once, On 11/22/18 at 1320, For 1 doseIndications:Electrolyte imbalance Given 11/22/2018 1:[address] 500 mg sodium chloride 0.9 % irrigation 30 mL 30 mL, swish & spit, 4 times daily, First dose on Sat11/22/18 at 1700, Use as mouth rinse for oral care. Given 11/25/2018 5:31 PM QUALITY TECHNICIAN 30 mL Given 11/25/2018 12:31 PM QUALITY TECHNICIAN 30 mL Given 11/25/2018 8:10 AM QUALITY TECHNICIAN 30 mL sodium chloride 0.9% bolus 1,000 mL 1,000 mL, intravenous, at 500 mL/hr, Administer over 2 Hours, Once, On 11/22/18 at 1115, For 1 doseIndications:Dehydration New Bag 11/22/2018 11:30 AM QUALITY TECHNICIAN 1,000 mL 500 mL/hr sodium chloride 0.9% flush 0.5-20 mL 0.5-20 mL, intra-catheter, Every 8 hours scheduled, First dose on Sat11/22/18 at 1605, Flush volume based on line type and size. Given 11/25/2018 5:40 AM QUALITY TECHNICIAN 20 mL Given 11/24/2018 8:19 PM QUALITY TECHNICIAN 10 mL Given 11/24/2018 2:16 PM QUALITY TECHNICIAN 10 mL sodium chloride-sodium bicarbonate (NEILMED SINUS RINSE, AYR) nasal wash kit 1 packet 1 packet, each nostril, Daily, First dose on Sat11/24/18 at 1230 Given 11/25/2018 8:10 AM QUALITY TECHNICIAN 1 packet Given 11/24/2018 2:34 PM QUALITY TECHNICIAN 1 packet sulfamethoxazole-trimethoprim (BACTRIM,SEPTRA) 800-160 mg per tablet 320 mg of trimethoprim 320 mg of trimethoprim, oral, User Specified (2 times per day on Sat), First dose on Sat11/24/18 at 0900, Indications: Pneumocystis/Toxoplasmosis ProphylaxisIndications:Pneumoc ystis/Toxoplasmosis Prophylaxis Given 11/24/2018 8:17 PM QUALITY TECHNICIAN 320 mg of trimethoprim Given 11/24/2018 8:18 AM QUALITY TECHNICIAN 320 mg of trimethoprim tacrolimus (PROGRAF) capsule 0.5 mg 0.5 mg, oral, Daily, First dose on Sat11/23/18 at 0900, Avoid grapefruit juice Given 11/23/2018 9:11 AM QUALITY TECHNICIAN 0.5 m g tacrolimus (PROGRAF) capsule 0.5 mg 0.5 mg, oral, Every other day, First dose (after last modification) on Sat11/25/18 at 0900, Avoid grapefruit juice Given 11/25/2018 8:09 AM QUALITY TECHNICIAN 0.5 m g vancomycin 1000 mg/200 mL in dextrose 5% (premix) 1,000 mg 1,000 mg, intravenous, Administer over 60 Minutes, Once, On 11/22/18 at 1310, For 1 dose, Indications: INFECTIONIndications:INFECTION New Bag 11/22/2018 1:12 PM QUALITY TECHNICIAN 1,000 mg vancomycin 1000 mg/200 mL in dextrose 5% (premix) 1,000 mg 1,000 mg, intravenous, Administer over 60 Minutes, Every 12 hours, First dose on 11/23/18 at 1230, Indications: Neutropenic FeverIndications:Neutropenic Fever New Bag 11/24/2018 12:11 AM QUALITY TECHNICIAN 1,000 mg New Bag 11/23/2018 5:37 PM QUALITY TECHNICIAN 1,000 mg documented in this encounter Discontinued Medications Medication Sig Discontinue Reason Start Date End Da te HUMALOG KWIKPEN INSULIN 100 unit/mL insulin penIndications: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 Stop Taking at Discharge 06/24/2018 11/25/2018 gabapentin (NEURONTIN) 300 mg capsule Take 300 mg by mouth as needed. Stop Taking at Discharge 11/25/2018 documented as of this encounter Active and Recently Administered Medications Times are shown in QUALITY TECHNICIAN. Scheduled Medication Order 11/23/2018 11/24/2018 11/25/2018 acyclovir [...] mg 2.5 mg, nebulization, 4 times daily (incident response coordinator), First dose on Sat11/24/18 at 1200 1213 (Not Given - Provider: Dayron Armijo RRT - Reason: Patient not available)1546 (Not Given - Provider: Prateek Padilla-RT - Reason: Patient not available - Comment: checked twice.@3pm and 3:45pm)204 (Given - Provider: Narcisa Mora, BRANDEN) 0820 (Given - Provider: Dayron Armijo, BRANDNE)1307 (Given - Provider: Dayron Armijo, BRANDEN)1657 (Given - Provider: Page Marlow, BRANDEN) albuterol (PROVENTIL,VENTOLIN) 2.5 mg/0.5 mL nebulizer solution 5 mg (CANCELED) 5 mg, nebulization, 4 times daily (incident response coordinator), First dose on 11/22/18 at 1900 0800 [...] (CANCELED) 1 puff, inhalation, 2 times daily (incident response coordinator), First dose on 11/22/18 at 2000, Rinse mouth with water after use. Do not swallow. 0910 (Given - Provider: Dennis Crow, BECKI)2001 (Given - Provider: Hilda Peters, LOAN COLLECTOR) 0834 (Given - Provider: Dayron Armijo, BRANDEN) [...] Nadia Tobar RN)1447 (Not Given - Provider: Sdira Vaughn, BECKI - Reason: Other - Comment: [...] Provider: Cruz Gustafson, RN)0111 (Stopped - Provider: Curz Gustafson, RN) PRN Medication Order 11/23/2018 11/24/2018 [...] at 1525, Indications: Fever aluminum & magnesium womkjvdhf-lujwqtlnszp-bdn henhydramine-lidocaine (MAGIC MOUTHWASH) suspension 1-1-1 15 mL, [...] Call MD for each episode of hypoglycemia. SITE SAFETY REPRESENTATIVE STATES GLUTOSE-15 CONTAINS GLUCOSE 40% W/W (50% [...] Call MD for each episode of hypoglycemia. SITE SAFETY REPRESENTATIVE STATES GLUTOSE-15 CONTAINS GLUCOSE 40% W/W (50% [...] Call MD for each episode of hypoglycemia. SITE SAFETY REPRESENTATIVE STATES GLUTOSE-15 CONTAINS GLUCOSE 40% W/W (50% [...] Call MD for each episode of hypoglycemia. SITE SAFETY REPRESENTATIVE STATES GLUTOSE-15 CONTAINS GLUCOSE 40% W/W (50% [...] 650 mg 1 03/2019 aluminum & magnesium sufyiqaca-bisungpxkea-tveawrfpgcmldws-lido aida (MAGIC MOUTHWASH) suspension 1-1-1 11/22/2018 bacitracin-polymyxin [...] SERVICES REQUEST 1 11/24 IP CONSULT TO GENERATOR REBUILDER 1 9 IP CONSULT TO ENT 1 [...] documented as of this encounter Care Teams Records Management Clerk Relationship Specialty Start Date End Date Kirt Lindsay DO PCP - General 05/02/17 11/22/20 documented as of this encounter
--- OUTSIDE RECORDS SUMMARY | 2024-11-22 13:08 | XMS_ITS | Encounter Summary ---
Author Organization [facility] Address [address] [place] [address] Phone Care Team Providers Care Transmission Design Engineer Name Role Phone Kirt Lindsay DO Primary Care Provider [phone] Encounter Details Date Type Department Care Team (Late st Contact Info) Description 06/24/2018 Orders Only [facility] [address] [facility] [address], [place] [id number] Justine Jones RN AML (acute myeloid leukemia) in remission (CMS/HCC); Dvjpr-ouctli-klex disease (CMS/HCC) Social History Tobacco Use Types Packs/Day Years Used Date Smoking Tobacco: Every Day Smokeless Tobacco: Never Sex and Gender Information Value Date Recorded Sex Assigned at Not on file Legal Sex Male 10:48 AM HYPERION ADMINISTRATOR Gender Identity Not on file Sexual [...] 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 Reorder 06/24/2018 06/24/2018 documented as of this encounter Additional Health Concerns Infection Onset Date Last Indicated Resolved Time VRE Comment:Backloaded September 06, 2011 11/26/2010 11/26/201006/18 5:00 AM CDT documented as of this encounter Care Teams Transmission Design Engineer Relationship Specialty Start Date End Date Kirt Lindsay DO PCP - General 05/02/17 11/22/20 documented as of this encounter
--- OUTSIDE RECORDS SUMMARY | 2024-11-22 13:08 | XMS_ITS | Encounter Summary ---
Author Organization [facility] Address [address] [place] [address] Phone Care Team Providers Care Space And Missile Operations Spacelift Name Role Phone Kirt Lindsay DO Primary Care Provider +1- [phone] Encounter Details Date Type Department Care Team (Late st Contact Info) Description 2018 9:30 AM SENIOR TECHNICAL ANALYST Lab [facility] Oncology [address] [facility] Advanced Medicine 7th [place] [address] [place] [address] Eneida Gibson MD [address] [place] [address] AML (acute myeloid leukemia) in remission (CMS/HCC); H/O allogeneic bone marrow transplant (CMS/HCC); Dophi-scpzrj-mzxo disease (CMS/HCC) Discharge Disposition: Discharge to home or self care Social History Tobacco Use Types Packs/Day Years Used Date Smoking Tobacco: Every Day Smokeless Tobacco: Never Comments:Pt not interested i n smoking cessation program Sex and Gender Information Value Date Recorded Sex Assigned at Not on file Legal Sex Male 10:48 AM SENIOR TECHNICAL ANALYST Gender Identity Not on file Sexual Orientation Not on file documented as of this encounter Discharge Disposition Disposition Code Departure Means Destination Discharge to home or self care documented in this encounter Plan of Treatment Not on file documented as of this encounter Procedures Procedure Name Priority Date/Time Associated Diagnosis Comments CRITICAL RESULT CALLBACK CHEMISTRY Routine 2018 9:30 AM SENIOR TECHNICAL ANALYST AML (acute myeloid leukemia) in remission (CMS/HCC) H/O allogeneic bone marrow transplant (CMS/HCC) Ljmpa-wgfufz-mjja disease (CMS/HCC) TACROLIMUS LEVEL, RANDOM Routine 2018 9:30 AM SENIOR TECHNICAL ANALYST AML (acute myeloid leukemia) in remission (CMS/HCC) H/O allogeneic bone marrow transplant (CMS/HCC) Swkma-risoxb-qnrh disease (CMS/HCC) VITAMIN D 25 HYDROXY Routine 2018 9:30 AM SENIOR TECHNICAL ANALYST AML (acute myeloid leukemia) in remission (CMS/HCC) URIC ACID Routine 2018 9:30 AM SENIOR TECHNICAL ANALYST AML (acute myeloid leukemia) in remission (CMS/HCC) H/O allogeneic bone marrow transplant (CMS/HCC) Wfuuk-vxmfjn-gkcm disease (CMS/HCC) TSH Routine 2018 9:30 AM SENIOR TECHNICAL ANALYST AML (acute myeloid leukemia) in remission (CMS/HCC) MAGNESIUM Routine 2018 9:30 AM SENIOR TECHNICAL ANALYST AML (acute myeloid leukemia) in remission (CMS/HCC) H/O allogeneic bone marrow transplant (CMS/HCC) Amsup-wiwfzz-ffcp disease (CMS/HCC) LACTATE DEHYDROGENASE Routine 2018 9:30 AM SENIOR TECHNICAL ANALYST AML (acute myeloid leukemia) in remission (CMS/HCC) H/O allogeneic bone marrow transplant (CMS/HCC) Fmfnh-ipygix-zmmk disease (CMS/HCC) IGG Routine 2018 9:30 AM SENIOR TECHNICAL ANALYST AML (acute myeloid leukemia) in remission (CMS/HCC) COMPREHENSIVE METABOLIC PANEL Routine 2018 9:30 AM SENIOR TECHNICAL ANALYST AML (acute myeloid leukemia) in remission (CMS/HCC) H/O allogeneic bone marrow transplant (CMS/HCC) Kbdhp-nvnhkk-rnxc disease (CMS/HCC) DIFFERENTIAL AUTO Routine 2018 9:2 8 AM SENIOR TECHNICAL ANALYST AML (acute myeloid leukemia) in remission (CMS/HCC) H/O allogeneic bone marrow transplant (CMS/HCC) Oimkj-faemjd-wnnl disease (CMS/HCC) CBC WITH AUTO DIFFERENTIAL Routine 2018 9:28 AM SENIOR TECHNICAL ANALYST AML (acute myeloid leukemia) in remission (CMS/HCC) H/O allogeneic bone marrow transplant (CMS/HCC) Tlftk-byjrnx-aaex disease (CMS/HCC) documented in this encounter Results * Critical Result Callback Chemistry (2018 9:30 AM SENIOR TECHNICAL ANALYST) Date Notified [id number] [facility] Time Notified 1103 [facility] TestName Paula POOLE [facility] Called/Read Back [facility] Credentials ANA PAULA POOLE [facility] Called By ra POOLE [facility] Blood specimen (specimen) 2018 9:30 AM SENIOR TECHNICAL ANALYST 2018 9:53 AM SENIOR TECHNICAL ANALYST Narrative [facility] - 2018 11:05 AM SENIOR TECHNICAL ANALYST Narcisa Kilgore [facility] BLOOD ORDERABLES Pilar l Result Performing Organization Address [facility] Co de Phone Number [facility] [place] [address] * (ABNORMAL) IgG (2018 9:30 AM SENIOR TECHNICAL ANALYST) Pathologist [facility] Immunoglobulin G 579.0(L) 700.0 - 1,600.0 mg/dL [facility] Blood specimen (specimen) 2018 9:30 AM SENIOR TECHNICAL ANALYST 2018 9:49 AM SENIOR TECHNICAL ANALYST Narrative [facility] - 2018 10:21 AM SENIOR TECHNICAL ANALYST Narcisa Kilgore [facility] BLOOD ORDERABLES Pilar l Result [facility] [place] [address] * (ABNORMAL) Vitamin D 25 hydroxy (2018 9:30 AM SENIOR TECHNICAL ANALYST) Pathologist [facility] Vitamin D 25-OH 22(L) 30 - 80 ng/mL [facility] Blood specimen (specimen) 2018 9:30 AM SENIOR TECHNICAL ANALYST 2018 9:49 AM SENIOR TECHNICAL ANALYST Narrative [facility] - 2018 10:59 AM SENIOR TECHNICAL ANALYST Narcisa Kilgore [facility] BLOOD ORDERABLES Pilar l Result Performing Organization Address [facility]/ZIP Co de Phone Number [facility] [place] [address] * (ABNORMAL) TSH (2018 9:30 AM SENIOR TECHNICAL ANALYST) Pathologist [facility] Thyroid Stimulating Hormone 0.22(L) 0.30 - 4.20 mcIUnit/mL [facility] Blood specimen (specimen) 2018 9:30 AM SENIOR TECHNICAL ANALYST 2018 9:49 AM SENIOR TECHNICAL ANALYST Narrative [facility] - 2018 10:30 AM SENIOR TECHNICAL ANALYST us Narcisa Kilgore [facility] [employer] BLOOD ORDERABLES Pilar l Result [facility] [place] [address] * Uric acid (2018 9:30 AM SENIOR TECHNICAL ANALYST) Pathologist [facility] Uric acid 3.1 3.0 - 8.0 mg/dL [facility] Blood specimen (specimen) 2018 9:30 AM SENIOR TECHNICAL ANALYST 2018 9:49 AM SENIOR TECHNICAL ANALYST Narrative [facility] - 2018 10:30 AM SENIOR TECHNICAL ANALYST Narcisa Kilgore [employer] [employer] BLOOD ORDERABLES Pilar l Result [facility] [email or web address] [address] * Tacrolimus level, random (2018 9:30 AM SENIOR TECHNICAL ANALYST) Tacrolimus, random <1.0 ng/mL [facility] Comment: Undetectable. ??Please verify that the correct immunosuppressant test was requested. Interpretive Data Testing performed by liquid chromatography-tandem mass spectrometry (LC- MS/MS).This test was developed using an analyte specific reagent. Its performance characteristics were determined by the [facility] in a manner consistent with CLIA requirements. ??This test has not been cleared or approved by the U.S. Food and Drug Administration. Current interpretive data was last revised on 2016. Blood specimen (specimen) 2018 9:30 AM SENIOR TECHNICAL ANALYST 2018 9:41 AM SENIOR TECHNICAL ANALYST Narrative [facility] - 2018 2:58 PM SENIOR TECHNICAL ANALYST Narcisa Kilgore [facility] [employer] BLOOD ORDERABLES Pilar l Result Performing Organization Address [facility] Co de Phone Number [facility] [email or web address] [address] * Magnesium (2018 9:30 AM SENIOR TECHNICAL ANALYST) Magnesium 1.6 1.4 - 2.5 mg/dL [facility] Blood specimen (specimen) 2018 9:30 AM SENIOR TECHNICAL ANALYST 2018 9:49 AM SENIOR TECHNICAL ANALYST Narrative [facility] - 2018 10:30 AM SENIOR TECHNICAL ANALYST Narcisa Kilgore [facility] [employer] BLOOD ORDERABLES Pilar l Result Performing Organization Address City/[facility]/ZIP Co de Phone Number [facility] [place] [address] * (ABNORMAL) Lactate dehydrogenase (LD) (2018 9:30 AM SENIOR TECHNICAL ANALYST) Pathologist [facility] Lactate dehydrogenase (LDH) 325(H) 100 - 250 Units/L [facility] Blood specimen (specimen) 2018 9:30 AM SENIOR TECHNICAL ANALYST 2018 9:49 AM SENIOR TECHNICAL ANALYST Narrative [facility] - 2018 10:30 AM SENIOR TECHNICAL ANALYST Narcisa Kilgore NP LAB BLOOD ORDERABLES Pilar l Result [facility] [place] [address] * (ABNORMAL) Comprehensive metabolic panel (2018 9:30 AM SENIOR TECHNICAL ANALYST) Pathologist [facility] Sodium 138 135 - 145 mmol/L [facility] Potassium, pl 3.8 3.3 - 4.9 mmol/L [facility] Chloride 97 97 - 110 mmol/L [facility] CO2 35(H) 22 - 32 mmol/L [facility] Anion gap 6 2 - 15 mmol/L [facility] BUN 19 8 - 25 mg/dL [facility] Creatinine 0.87 0.80 - 1.30 mg/dL [facility] Glucose 565(C) 70 - 199 mg/dL [facility] [...] 10.3 mg/dL [facility] Bilirubin, total 0.5 0.1 - 1.2 mg/dL [facility] Protein, pl 6.3(L) 6.5 - 8.5 g/dL [facility] Albumin 4.0 3.5 - 5.0 g/dL [facility] Alk phos 101 40 - 130 Units/L [facility] ALT 48 7 - 55 Units/L [facility] AST 31 10 - 50 Units/L [facility] Blood specimen (specimen) 2018 9:30 AM SENIOR TECHNICAL ANALYST 2018 9:49 AM SENIOR TECHNICAL ANALYST Narrative [facility] - 2018 10:51 AM SENIOR TECHNICAL ANALYST us Narcisa Kilgore NP LAB BLOOD ORDERABLES Pilar armas Result [facility] [place] [address] * (ABNORMAL) Differential, auto (2018 9:28 AM SENIOR TECHNICAL ANALYST) Neutrophil abs 10.8(H) 1.8 - 6.6 K/cumm [facility] Comment:Testing performed by : [facility], [address] [place] [phone] Lymphocyte abs 2.2 1.2 - 3.3 K/cumm [facility] Comment:Testing performed by : [facility], [address] [place] [phone] Monocyte abs 0.7 0.2 - 1.2 K/cumm [facility] Comment:Testing performed by : [facility], [address] [place] [phone] Eosinophil abs 0.0 0.0 - 0.5 K/cumm [facility] Comment:Testing performed by : [facility], [address] [place] [phone] Basophil abs 0.1 0.0 - 0.2 K/cumm [facility] Comment:Testing performed by : [facility], [address] [place] [phone] Neutrophil pct 78.0 % [facility] Comment: Interpretive Data Percent cell count reference ranges are not reported, since discordance with absolute values may lead to misinterpretation of CBC data. Current Interpretive Data was last revised on 2018. Testing performed by: [facility], [address] [place] [phone] Lymphocyte pct 16.1 % [facility] Comment: Interpretive Data Percent cell count reference ranges are not reported, since discordance with absolute values may lead to misinterpretation of CBC data. Current Interpretive Data was last revised on 2018. Testing performed by: [facility], [address] [place] [phone] Monocyte pct 4.7 % [facility] Comment:Testing performed by : [facility], [address] [place] [phone] Eosinophil pct 0.3 % [facility] Comment:Testing performed by : [facility], [address] [place] [phone] Basophil pct 0.9 % [facility] Comment:Testing performed by : [address] [phone] Blood specimen (specimen) 2018 9:28 AM SENIOR TECHNICAL ANALYST 2018 9:32 AM SENIOR TECHNICAL ANALYST Narrative [facility] - 2018 9:37 AM SENIOR TECHNICAL ANALYST Narcisa Kilgore [employer] LAB BLOOD ORDERABLES Pilar l Result [facility] [place] [address] * (ABNORMAL) CBC with auto differential (2018 9:28 AM SENIOR TECHNICAL ANALYST) WBC 13.9(H) 3.8 - 9.8 K/cumm [facility] Comment:Testing performed by : [facility], [address] [place] [phone] Hgb 15.2 13.8 - 17.2 g/dL [facility] Comment:Testing performed by : [address] [phone] Hct 44.3 40.7 - 50.3 % [facility] Comment:Testing performed by : [facility], [address] [place], [place] [id number] Plt 163 140 - 440 K/cumm [facility] Comment:Testing performed by : [facility], [address] [place], [place] [id number] MPV 8.7 6.8 - 10.4 fL [facility] Comment:Testing performed by : [place] [address] RBC 4.05(L) 4.50 - 5.70 M/cumm [facility] Comment:Testing performed by : [facility], [address] [place], [place] [id number] MCV 109.4(H) 80.0 - 97.6 fL [facility] Comment:Testing performed by : [facility], [address] [place] [address] MCH 37.6(H) 26.7 - 33.7 pg [facility] Comment: Result consistent with previously reported values. Testing performed by: [facility], [address] [place], [place] [id number] MCHC 34.4 32.7 - 35.5 g/dL [facility] Comment:Testing performed by : [place] [address] RDW CV 14.5 11.8 - 14.6 % [facility] Comment:Testing performed by : [place] [address] NRBC abs 0.00 0.00 - 0.01 K/cumm [facility] Comment:Testing performed by : [facility], [address] [place], [place] [id number] Blood specimen (specimen) 2018 9:28 AM SENIOR TECHNICAL ANALYST 2018 9:32 AM SENIOR TECHNICAL ANALYST Narrative [facility] - 2018 9:37 AM SENIOR TECHNICAL ANALYST us Narcisa Kilgore [employer] LAB BLOOD ORDERABLES Pilar pawel Result 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
--- OUTSIDE RECORDS SUMMARY | 2024-11-22 13:08 | XMS_ITS | Encounter Summary ---
Author Organization [facility] Address [address] [place] [address] Phone Care Team Providers Care Judicial Registrar Name Role Phone Kirt Lindsay DO Primary Care Provider +1- [phone] Encounter Details Date Type Department Care Team (Late st Contact Info) Description 10/17/2018 Orders Only [facility] Bone Marrow Transplant [address] [facility] Advanced Medicine 7th Floor, [place] [address] Narcisa Kilgore NP [address] DIV IM BONE MARROW TRANSPLANT, [address] [place] [address] Cough (Primary Dx); AML (acute myeloid leukemia) in remission (CMS/HCC); Epwwv-jakdal-ibqr disease (CMS/HCC); H/O allogeneic bone marrow transplant ([facility]/HCC); Type 2 diabetes mellitus with hyperglycemia, with long-term current use of insulin ([facility]/HCC) Social History Tobacco Use Types Packs/Day Years Used Date Smoking Tobacco: Every Day Smokeless Tobacco: Never Sex and Gender Information Value Date Recorded Sex Assigned at Not on file Legal Sex Male 10:48 AM INTENSIVE CARE SPECIALIST Gender Identity Not on file Sexual [...] AML (acute myeloid leukemia) in remission (HCC) Mdpva-pyrcou-fytf disease (HCC) H/O allogeneic bone marrow transplant (HCC) Type 2 diabetes mellitus with hyperglycemia, with long-term current use of insulin (HCC) documented in this encounter Additional Health Concerns Infection Onset Date Last Indicated Resolved Time VRE Comment:Backloaded September 06, 2011 11/26/2010 11/26/201006/18 5:00 AM CDT documented as of this encounter Care Teams Judicial Registrar Relationship Specialty Start Date End Date Kirt Lindsay DO PCP - General 05/02/17 11/22/20 documented as of this encounter
--- OUTSIDE RECORDS SUMMARY | 2024-11-22 13:08 | XMS_ITS | Encounter Summary ---
Author Organization [facility] Address [address] [place] [address] Phone Care Team Providers Care Personnel Quality Assurance Auditor Name Role Phone Kirt Lindsay DO Primary Care Provider +1- [phone] Encounter Details Date Type Department Care Team (Late st Contact Info) Description 2018 11:15 AM ACADEMIC COORDINATOR Infusion [facility] Oncology [address] [facility] Advanced Medicine 7th [place] [phone] Type 2 diabetes mellitus with hyperglycemia, with long-term current use of insulin ([facility]) Social History Tobacco Use Types Packs/Day Years Used Date Smoking Tobacco: Every Day Smokeless Tobacco: Never Comments:Pt not interested i n smoking cessation program Sex and Gender Information Value Date Recorded Sex Assigned at Not on file Legal Sex Male 10:48 AM ACADEMIC COORDINATOR Gender Identity Not on file Sexual Orientation Not on file documented as of this encounter Nursing Notes * Elizabeth Gonzales - 2018 11:15 AM CST Patient tolerated treatment well. He left ambulatory to Pulmonary. EMIC COORDINATOR documented in this encounter Plan of [...] of insulin (HCC) Given 2018 11:41 AM ACADEMIC COORDINATOR 10 Units Left Lower Abdomen documented in [...] documented as of this encounter Care Teams Personnel Quality Assurance Auditor Relationship Specialty Start Date End Date Kirt Lindsay DO PCP - General 05/02/17 11/22/20 documented as of this encounter
--- OUTSIDE RECORDS SUMMARY | 2024-11-22 13:08 | XMS_ITS | Encounter Summary ---
Author Organization [facility] Address [address] [place] [address] Phone Care Team Providers Care Forest Manager Name Role Phone Kirt Lindsay DO Primary Care Provider +1- [phone] Reason for Visit * Diagnostic Imaging (Routine) - Canceled Specialty Diagnoses / Procedures Referred By Ana M t Referred To Contact Diagnoses Osteopenia of multiple sites Procedures Dexa Axial Skeleton Bone Density 1 or 2 Site Eneida Gibson MD Phone: tel: [facility] (All Locations) Referral ID Status Reason Start Date Expiration Date V isits Requested Visits Authorized [id number] Canceled 03/25/2018 11/04/2019 1 1 Encounter Details Date Type Department Care Team (Latest Contact Info) Description 08/01/2018 10:50 AM CDT Clinical Support [place] [address] [facility] 5th [place] [address] [place] [address] Osteopenia of multiple sites; Osteopenia of left hip; roasterman 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 Social History Tobacco Use Types Packs/Day Years Used Date Smoking Tobacco: Every Day Smokeless Tobacco: Never Sex and Gender Information Value Date Recorded Sex Assigned at Not on file Legal Sex Male 10:48 AM COLLABORATING SUPERVISING PHYSICIAN Gender Identity Not on file Sexual [...] Bone mineral density was performed on a [employer] Discovery Densitometer. ?? Machine Cross-calibration and Precision [...] by the International Society of Clinical Densitometry. [id number] Eneida Gibson MD IMG DXA PROCEDURES Final Result documented in this encounter Visit Diagnoses Diagnosis Osteopenia of multiple sites Osteopenia of left hip roasterman 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 documented in this encounter Additional Health Concerns Infection Onset Date Last Indicated Resolved Time VRE Comment:Backloaded September 06, 2011 11/26/2010 11/26/201006/18 5:00 AM CDT documented as of this encounter Care Teams Forest Manager Relationship Specialty Start Date End Date Kirt Lindsay DO PCP - General 05/02/17 11/22/20 documented as of this encounter
--- OUTSIDE RECORDS SUMMARY | 2024-11-22 13:08 | XMS_ITS | Encounter Summary ---
Author Organization [facility] Address [address] [facility] [address] [place] [address] Phone Care Team Providers Care Collar Runner Name Role Phone Kirt Lindsay DO Primary Care Provider +1- [phone] Encounter Details Date Type Department Care Team (Late st Contact Info) Description 10/15/2018 Telephone [facility] Surgery [address] [facility] [address] [place] [phone] Spenser Loving MD [address] [facility] [place] [address] Social History Tobacco Use Types Packs/Day Years Used Date Smoking Tobacco: Every Day Smokeless Tobacco: Never Sex and Gender Information Value Date Recorded Sex Assigned at Not on file 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 Gender Identity Not on file Sexual Orientation Not on file documented as of this encounter Miscellaneous Notes * Telephone Encounter - Kris Burns LPN - 10/20/2018 9:28 AM CST I spoke with patient and let him know that it was denied for coverage [employer] * Telephone Encounter - Kris Burns LPN [...] I will f/u with them on anks:) [employer] * Telephone Encounter - Kris Burns LPN - 10/17/2018 2:04 PM CST Ok I will give him a call thanks:) [employer] * Telephone Encounter - Ethel Marinelli - 10/17/2018 1:52 PM CST Pt returned your call,thanks [employer] * Telephone Encounter - Lucinda Bourne - 10/15/2018 4:13 PM CST Pt. Is calling back in regards to you vm about his xiaflex medication please cb the pt. 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
--- OUTSIDE RECORDS SUMMARY | 2024-11-22 13:08 | XMS_ITS | Encounter Summary ---
Author Organization [facility] Address [address] [place] [address] Phone Care Team Providers Care Grain Elevator Man Name Role Phone Kirt Lindsay DO Primary Care Provider [phone]- [phone] Encounter Details Date Type Department Care Team (Late st Contact Info) Description 07/28/2018 10:45 AM CDT Office Visit [facility] Bone Marrow Transplant [address] 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 2. Decitabine maintenance on the CALGB 92070 protocol. 3. Relapsed disease, status post [facility]. 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 No obvious evidence of [...] Del Valle M.D., Ph.D. Chief, Division of Oncology/sand technician Section of BMT & Leukemia CHRISTOPHER/lebron documented in this encounter Plan of Treatment Not on file documented as of this encounter Results * Tacrolimus level, random (07/28/2018 10:17 AM CDT) Tacrolimus, random <1.0 ng/mL [facility] Comment: Undetectable. ??Please verify that the correct immunosuppressant test was requested. Interpretive Data Testing performed by liquid chromatography-tandem mass spectrometry (LC- MS/MS).This test was developed using an analyte specific reagent. ?? Its performance characteristics were determined by the [facility] in a manner consistent with CLIA requirements. ??This test has not been cleared or approved by the U.S. Food and Drug Administration. Current interpretive data was last revised on 2016. Blood specimen (specimen) 07/28/2018 10:17 AM CDT 07/28/2018 10:43 AM CDT Narrative [facility] - 07/28/2018 1:14 PM CDT Narcisa Kilgore NP LAB BLOOD ORDERABLES Pilar armas Result [facility] Department [place] [address] documented in this encounter Visit Diagnoses Diagnosis AML (acute myeloid leukemia) in remission (HCC)- Primary Wzblk-qiwhab-wkhb disease (HCC) H/O allogeneic bone marrow transplant (HCC) Acute myeloid leukemia in remission (HCC) Acute myeloid leukemia in remission Type 2 diabetes mellitus with hyperglycemia, with long-term current use of insulin (HCC) Acute myeloid leukemia in remission (HCC) 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 (HCC) Trpfi-qfhsha-fhys disease (HCC) AML (acute myeloid leukemia) in [...] mg tabletIndications:AML (acute myeloid leukemia) in remission (HCC),Romwx-pbgewz-yr st disease (HCC),H/O allogeneic bone marrow transplant (HCC),Type 2 diabetes mellitus with hyperglycemia, with long-term current use of insulin (HCC) 07/17/2018 10/27/20 18 HUMALOG KWIKPEN INSULIN 100 unit/mL insulin penIndications:AML (acute myeloid leukemia) in remission (HCC),Bgebe-nbfzzf-ds st disease (HCC),H/O allogeneic bone marrow transplant (HCC),Type 2 diabetes mellitus with hyperglycemia, with long-term current use of insulin ([facility]) 07/17/2018 11/24/19 19 azithromycin (ZITHROMAX) 250 mg tabletIndications:AML (acute myeloid leukemia) in remission (HCC),Msjjc-ogvpdl-fc st disease (HCC),H/O allogeneic bone marrow transplant (HCC),Type 2 diabetes mellitus with hyperglycemia, with long-term current use of insulin ([facility]) 07/09/2018 10/27/20 18 added in this encounter Orders Appointment Requests Count Last Ordered Date Fi rst Ordered Date ONCBCN CLINIC APPOINTMENT REQUEST 1 018 documented in this encounter Additional Health Concerns 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
--- OUTSIDE RECORDS SUMMARY | 2024-11-22 13:08 | XMS_ITS | Encounter Summary ---
Author Organization [facility] Address [address] [facility] [address] [place] [address] Phone Care Team Providers Care Toll Repairer Central Office Name Role Phone Kirt Lindsay DO Primary Care Provider +1- [phone] Reason for Visit * Reason Comments Follow-up Encounter Details Date Type Department Care Team (Late st Contact Info) Description 09/01/2018 10:30 AM CDT Office Visit [facility] Surgery [facility] [address] [place] [phone] Spenser Loving MD [address] [facility] [place], [place] [id number] Induration penis plastica (Primary Dx) Social History Tobacco Use Types Packs/Day Years Used Date Smoking Tobacco: Every Day Smokeless Tobacco: Never Sex and Gender Information Value Date Recorded Sex Assigned at Not on file 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
--- OUTSIDE RECORDS SUMMARY | 2024-11-22 13:08 | XMS_ITS | Encounter Summary ---
Author Organization [facility] Address [address] [facility] [address] [place] [address] Phone Care Team Providers Care Security Program Manager Name Role Phone Kirt Lindsay DO Primary Care Provider +1- [phone] Reason for Referral * MRI/CAT/PET Scan (Routine) - Closed Specialty Diagnoses / Procedures Referred By Ana M anderson Referred To Contact Radiology Diagnoses AML (acute myeloid leukemia) in remission (HCC) H/O allogeneic bone marrow transplant (HCC) Mmujn-cuervs-blpg disease (HCC) Procedures CT chest without contrast Narcisa Kilgore NP Phone: tel: fax: [address] [address] Referral ID Status Reason Start Date Expiration Date Visits Re quested Visits Authorized [id number] Closed 10/08/2018 04/18/2020 1 1 UCT CONSULTANT * Oncology (Routine) - Closed Specialty Diagnoses / Procedures Referred By Controberta t Referred To Contact Diagnoses AML (acute myeloid leukemia) in remission (HCC) H/O allogeneic bone marrow transplant (HCC) Gcbhy-lsezrg-vvvi disease (HCC) Procedures Pulmonary Function Test -[facility]- CAM-8D; Spirometry with Bronchodilator, DLCO, Lung Volumes, Airway Resistance; Pleth with Airway Resistance; Lung volumes Narcisa Kilgore NP Phone: tel: fax: [facility] [address] [place] [address] Referral ID Status Reason Start Date Expiration Date Visits Re quested Visits Authorized [id number] Closed 10/08/2018 04/18/2020 1 1 UCT CONSULTANT Encounter Details Date Type Department Care Team (Late st Contact Info) Description 10/08/2018 Orders Only [facility] Bone Marrow Transplant [address] [facility] 7th Floor, [place] [address] Mellisa Rubalcava RN 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); H/O allogeneic bone marrow transplant (CMS/HCC); Frecc-lrvabl-rstj disease (CMS/HCC) Social History Tobacco Use Types Packs/Day Years Used Date Smoking Tobacco: Every Day Smokeless Tobacco: Never Sex and Gender Information Value Date Recorded Sex Assigned at Not on file Legal Sex Male 10:48 AM PRODUCT CONSULTANT Gender Identity Not on file Sexual Orientation Not on file documented as of this encounter Plan of Treatment Not on file documented as of this encounter Results * CT chest without contrast (2018 1:54 PM PRODUCT CONSULTANT) Anatomical Region Laterality Modality Body N/A Computed Tomogra phy 2018 2:20 PM PRODUCT CONSULTANT Impressions 2018 2:20 PM PRODUCT CONSULTANT 1. ??Resolution of right lower lobe consolidation. 2. ??Moderate to severe upper lobe predominant centrilobular emphysema with right upper lobe scarring. Electronically signed by: Dallas Valiente M.D. Narrative 2018 2:20 PM PRODUCT CONSULTANT EXAMINATION: CT of the chest without contrast. TECHNIQUE: Computed tomographic images of the chest were obtained without intravenous contrast according to standard protocol. HISTORY:AML in remission status post bone marrow transplant with unhiq-jmtxsr-mjxl disease. Comparison:CT dated 12/27/2017. ?? FINDINGS:There is [...] remission status post bone marrow transplant with mpetf-cmazrr-kwir disease. Comparison:CT dated 12/27/2017. FINDINGS:There is unchanged [...] Airway Resistance; Lung volumes (2018 1:09 PM PRODUCT CONSULTANT) FVC PRED 4.94 0.05 - 9.99 Liters [...] %POST PRED 34 0 - 300 % [facility] FEV1 %CHNG 13 0 - 300 % [facility] FEV1/FVC PRED 79 1 - 99 % [facility] FEV1/FVC PRE 30 0 - 12 % [facility] FEV1/FVC POST 30 0 - 12 % [facility] FMF91-61% PRED 3.48 0 - 12 L/sec [facility] YZG29-62% PRE 0.29 0 - 12 L/sec [facility] VSN39-91% %PRE PRED 8 0 - 300 % [facility] ITC67-34% POST 0.33 0 - 12 L/sec [facility] VAG92-44% %POST PRED 10 0 - 300 % [facility] JEF17-52% %CHNG 13 0 - 300 % [facility] [...] 74 0 - 300 % [facility] VMO576% %CHNG 9 % [facility] PIF PRE 3.51 0 - 18 L/sec [facility] PIF POST 3.28 0 - 18 L/sec [facility] PIF %CHNG -7 0 - 300 % [facility] FEV6 PRE 2.68 0 - 12 Liters [facility] FEV6 POST 3.04 0 - 12 Liters [facility] FEV6 % CHG 14 0 - 300 % [facility] FEV1/FEV6 PRE 44 0 - 12 % [facility] FEV1/FEV6 POST 43 0 - 12 % [facility] VC PRED 4.69 0.05 - 9.99 Liters [facility] VC PRE 4.00 0.05 - 9.99 Liters [facility] VC %PRE PRED 85 0 - 300 % [facility] TLC PRED 6.98 0.05 - 11.99 Liters [facility] TLC PRE 7.89 0.05 - 11.99 Liters [facility] TLC %PRE PRED 113 0 - 300 % [facility] RV PRED 2.08 0.05 - 9.99 Liters [facility] RV PRE 3.89 0.05 - 9.99 Liters [facility] RV %PRE PRED 187 0 - 300 % [facility] RV/TLC PRED 30 0 - 300 % [facility] RV/TLC PRE 49 0 - 300 % [facility] FRC N2 PRED 3.04 0.05 - 9.99 Liters [facility] FRC PL PRED 3.58 0.05 - 9.99 Liters [facility] FRC PL PRE 5.49 0.05 - 9.99 Liters [facility] FRC PL %PRE PRED 153 0 - 300 % [facility] ERV PRED 1.62 0.05 - 9.99 Liters [facility] ERV PRE 1.68 0.05 - 9.99 Liters [facility] ERV %PRE PRED 103 0 - 300 % [facility] IC PRE 2.40 0.05 - 9.99 Liters [facility] DLCO PRED 36.3 0.05 - 99.99 mL/mmHg/min [facility] DLCO PRE 8.8 mL/mmHg/min [facility] DLCO %PRE PRED 24 0 - 300 % [facility] DL ADJ PRED 36.3 1 - 2 mL/mmHg/min [facility] DL ADJ PRE 8.7 1 - 2 mL/mmHg/min [facility] DL ADJ %PRE PRED 24 0 - 300 % [facility] DLCO/VA PRED 5.31 mL/mHg/min/ L [facility] [...] L/s/cmH2O/L [facility] SGAW PRE 0.027 L/s/cmH2O/L [facility] SGAW %PRE PRED 12 % [facility] Anatomical Region Laterality Modality PFT 2018 12:2 6 PM PRODUCT CONSULTANT Narrative 10/30/2018 10:34 AM PRODUCT CONSULTANT See pdf Narcisa Kilgore DIVORCE LAWYER PFT ORDERABLES Final Res ult * Uric acid (2018 9:30 AM PRODUCT CONSULTANT) Uric acid 3.1 3.0 - 8.0 mg/dL [facility] Blood specimen (specimen) 2018 9:30 AM PRODUCT CONSULTANT 2018 9:49 AM PRODUCT CONSULTANT Narrative [facility] - 2018 10:30 AM PRODUCT CONSULTANT Narcisa Kilgore DIVORCE LAWYER LAB BLOOD ORDERABLES Pilar l Result [facility] [address] [facility] Department [place] [address] * Tacrolimus level, random (2018 9:30 AM PRODUCT CONSULTANT) Tacrolimus, random <1.0 ng/mL [facility] Comment: Undetectable. ??Please verify that the correct immunosuppressant test was requested. Interpretive Data Testing performed by liquid chromatography-tandem mass spectrometry (LC- MS/MS).This test was developed using an analyte specific reagent. Its performance characteristics were determined by the [facility] in a manner consistent with CLIA requirements. ??This test has not been cleared or approved by the U.S. Food and Drug Administration. Current interpretive data was last revised on 2016. Blood specimen (specimen) 2018 9:30 AM PRODUCT CONSULTANT 2018 9:41 AM PRODUCT CONSULTANT Narrative [facility] - 2018 2:58 PM PRODUCT CONSULTANT Narcisa Kilgore DIVORCE LAWYER LAB BLOOD ORDERABLES Pilar l Result [facility] Department [place] [address] * Magnesium (2018 9:30 AM PRODUCT CONSULTANT) [facility] Magnesium 1.6 1.4 - 2.5 mg/dL [facility] Blood specimen (specimen) 2018 9:30 AM PRODUCT CONSULTANT 2018 9:49 AM PRODUCT CONSULTANT Narrative [facility] - 2018 10:30 AM PRODUCT CONSULTANT Narcisa Kilgore DIVORCE LAWYER LAB BLOOD ORDERABLES Pilar l Result [facility] [place] [address] * (ABNORMAL) Lactate dehydrogenase (LD) (2018 9:30 AM PRODUCT CONSULTANT) Lactate dehydrogenase (LDH) 325(H) 100 - 250 Units/L [facility] Blood specimen (specimen) 2018 9:30 AM PRODUCT CONSULTANT 2018 9:49 AM PRODUCT CONSULTANT Narrative [facility] - 2018 10:30 AM PRODUCT CONSULTANT us Narcisa Kilgore NP LAB BLOOD ORDERABLES Pilar armas Result [facility] Department [place] [address] * (ABNORMAL) Comprehensive metabolic panel (2018 9:30 AM PRODUCT CONSULTANT) Sodium 138 135 - 145 mmol/L [facility] Potassium, pl 3.8 3.3 - 4.9 mmol/L [facility] Chloride 97 97 - 110 mmol/L [facility] CO2 35(H) 22 - 32 mmol/L [facility] Anion gap 6 2 - 15 mmol/L [facility] BUN 19 8 - 25 mg/dL [facility] Creatinine 0.87 0.80 - 1.30 mg/dL [facility] Glucose 565(C) 70 - 199 mg/dL [facility] Comment: Interpretive Data Fasting glucose [...] 2017. Calcium 9.1 8.5 - 10.3 mg/dL [facility] Bilirubin, total 0.5 0.1 - 1.2 mg/dL [facility] Protein, pl 6.3(L) 6.5 - 8.5 g/dL [facility] Albumin 4.0 3.5 - 5.0 g/dL [facility] Alk phos 101 40 - 130 Units/L [facility] ALT 48 7 - 55 Units/L [facility] AST 31 10 - 50 Units/L [facility] Blood specimen (specimen) 2018 9:30 AM PRODUCT CONSULTANT 2018 9:49 AM PRODUCT CONSULTANT Narrative [facility] - 2018 10:51 AM PRODUCT CONSULTANT Narcisa Kilgore DIVORCE LAWYER LAB BLOOD ORDERABLES Pilar pawel Result [facility] Department [place] [address] * (ABNORMAL) CBC with auto differential (2018 9:28 AM PRODUCT CONSULTANT) WBC 13.9(H) 3.8 - 9.8 K/cumm [facility] Comment:Testing performed by : [address] [phone] Hgb 15.2 13.8 - 17.2 g/dL [facility] Comment:Testing performed by : [facility], [address] [place] [phone] Hct 44.3 40.7 - 50.3 % [facility] Comment:Testing performed by : [address] [phone] Plt 163 140 - 440 K/cumm [facility] Comment:Testing performed by : [address] [phone] MPV 8.7 6.8 - 10.4 fL [facility] Comment:Testing performed by : [address] [phone] RBC 4.05(L) 4.50 - 5.70 M/cumm [facility] Comment:Testing performed by : [address] [phone] MCV 109.4(H) 80.0 - 97.6 fL [facility] Comment:Testing performed by : [address] [phone] MCH 37.6(H) 26.7 - 33.7 pg [facility] Comment: Result consistent with previously reported values. Testing performed by: [facility], [address] [place] [phone] MCHC 34.4 32.7 - 35.5 g/dL [facility] Comment:Testing performed by : [facility], [address] [place] [phone] RDW CV 14.5 11.8 - 14.6 % [facility] Comment:Testing performed by : [facility], [address] [place] [phone] NRBC abs 0.00 0.00 - 0.01 K/cumm [facility] Comment:Testing performed by : [facility], [address] [place] [phone] Blood specimen (specimen) 2018 9:28 AM PRODUCT CONSULTANT 2018 9:32 AM PRODUCT CONSULTANT Narrative [facility] - 2018 9:37 AM PRODUCT CONSULTANT Narcisa Kilgore NP LAB BLOOD ORDERABLES Pilar l Result [facility] Department [place] [address] documented in this encounter Visit Diagnoses Diagnosis AML (acute myeloid leukemia) in remission (HCC)- Primary H/O allogeneic bone marrow transplant (HCC) Vwsca-hockhj-mwrd disease (HCC) AML (acute myeloid leukemia) in remission (HCC) H/O allogeneic bone marrow transplant (HCC) Otdot-nqanyf-hxmk disease (HCC) AML (acute myeloid leukemia) in remission (HCC) H/O allogeneic bone marrow transplant (HCC) Kpvrs-dcdjxb-txwb disease (HCC) AML (acute myeloid leukemia) in remission (HCC) H/O allogeneic bone marrow transplant (HCC) Dwpcz-nermrr-lpsk disease (HCC) documented in this encounter Orders Appointment Requests Count Last Ordered Date Fi rst Ordered Date ONCBCN CLINIC APPOINTMENT REQUEST 1 018 ONCBCN LAB APPOINTMENT 1 2018 documented in this encounter Additional Health Concerns Infection Onset Date 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
--- OUTSIDE RECORDS SUMMARY | 2024-11-22 13:08 | XMS_ITS | Encounter Summary ---
Author Organization 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); H/O allogeneic bone marrow transplant ([facility]); Ktveh-syoqdu-ptht disease ([facility]/HCC); AML (acute myeloid leukemia) in remission ([facility]/HCC) Social History Tobacco Use Types Packs/Day Years Used Date Smoking Tobacco: Every Day Smokeless Tobacco: Never Sex and Gender Information Value Date Recorded Sex Assigned at Not on file 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 Gender Identity Not on file Sexual Orientation Not on file documented as of this encounter Plan of Treatment Not on file documented as of this encounter Procedures Procedure Name Priority Date/Time Associated Diagnosis Comments TACROLIMUS LEVEL, RANDOM Routine 07/28/2018 10:17 AM CDT AML (acute myeloid leukemia) in remission ([facility]/HCC) H/O allogeneic bone marrow transplant (CMS/HCC) LACTATE DEHYDROGENASE Routine 07/28/2018 10:17 AM CDT 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) Ccynt-sjapdp-maja disease (CMS/HCC) H/O allogeneic bone marrow transplant (CMS/HCC) COMPREHENSIVE METABOLIC PANEL Routine 07/28/2018 10:17 AM CDT 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) Iglsi-rkokwp-qfgl disease (CMS/HCC) H/O allogeneic bone marrow transplant (CMS/HCC) DIFFERENTIAL AUTO Routine 07/28/2018 10: 15 AM CDT 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) Rcvcq-vapbwx-orvu disease (CMS/HCC) H/O allogeneic bone marrow transplant (CMS/HCC) CBC WITH AUTO DIFFERENTIAL Routine 07/28/2018 10:15 AM CDT 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) Mbdhw-xrzbbc-yuiq disease (CMS/HCC) H/O allogeneic bone marrow transplant (CMS/HCC) documented in this encounter Results * (ABNORMAL) Comprehensive metabolic panel (07/28/2018 10:17 AM CDT) Sodium 141 135 - 145 mmol/L [facility] Potassium, pl 3.6 3.3 - 4.9 mmol/L [facility] Chloride 105 97 - 110 mmol/L [facility] CO2 29 22 - 32 mmol/L [facility] Anion gap 7 2 - 15 mmol/L [facility] BUN 8 8 - 25 mg/dL [facility] Creatinine 0.78(L) 0.80 - 1.30 mg/dL [facility] Glucose 217(H) 70 - 199 mg/dL [facility] Comment: Interpretive Data Fasting glucose [...] Calcium 8.5 8.5 - 10.3 mg/dL [facility] Bilirubin, total 0.3 0.1 - 1.2 mg/dL [facility] Protein, pl 6.2(L) 6.5 - 8.5 g/dL [facility] Albumin 3.2(L) 3.5 - 5.0 g/dL [facility] Alk phos 146(H) 40 - 130 Units/L [facility] ALT 39 7 - 55 Units/L [facility] AST 32 10 - 50 Units/L [facility] Blood specimen (specimen) 07/28/2018 10:17 AM CDT 07/28/2018 10:45 AM CDT Narrative [facility] - 07/28/2018 11:18 AM CDT Narcisa Kilgore DOORPERSON LAB BLOOD ORDERABLES Pilar l Result Performing Organization Address City/[facility] Co de Phone Number [facility] [place] [address] * (ABNORMAL) Lactate dehydrogenase (LD) (07/28/2018 10:17 AM CDT) Lactate dehydrogenase (LDH) 324(H) 100 - 250 Units/L [facility] Blood specimen (specimen) 07/28/2018 10:17 AM CDT 07/28/2018 10:45 AM CDT Narrative [facility] - 07/28/2018 11:18 AM CDT Narcisa Kilgore DOORPERSON LAB BLOOD ORDERABLES Pilar l Result [facility] [place] [address] * Tacrolimus level, random (07/28/2018 10:17 AM CDT) Pathologist [facility] Tacrolimus, random <1.0 ng/mL [facility] Comment: Undetectable. ??Please verify that the correct immunosuppressant test was requested. Interpretive Data Testing performed by liquid chromatography-tandem mass spectrometry (LC- MS/MS).This test was developed using an analyte specific reagent. ?? Its performance characteristics were determined by the [facility] in a manner consistent with CLIA requirements. ??This test has not been cleared or approved by the U.S. Food and Drug Administration. Current interpretive data was last revised on 2016. Blood specimen (specimen) 07/28/2018 10:17 AM CDT 07/28/2018 10:43 AM CDT Narrative [facility] - 07/28/2018 1:14 PM CDT Narcisa Kilgore NP LAB BLOOD ORDERABLES Pilar armas Result [facility] Department [place] [address] * Differential, auto (07/28/2018 10:15 AM CDT) Pathologist [facility] Neutrophil abs 4.6 1.8 - 6.6 K/cumm [facility] Comment:Testing performed by : [facility], [address] [place] [phone] Lymphocyte abs 2.7 1.2 - 3.3 K/cumm [facility] Comment:Testing performed by : [facility], [address] [place] [phone] Monocyte abs 0.8 0.2 - 1.2 K/cumm [facility] Comment:Testing performed by : [facility], [address] [place] [phone] Eosinophil abs 0.1 0.0 - 0.5 K/cumm [facility] Comment:Testing performed by : [facility], [address] [place] [phone] Basophil abs 0.1 0.0 - 0.2 K/cumm [facility] Comment:Testing performed by : [facility], [address] [place] [phone] Neutrophil pct 54.8 % [facility] Comment: Interpretive Data Percent cell count reference ranges are not reported, since discordance with absolute values may lead to misinterpretation of CBC data. Current Interpretive Data was last revised on 2018. Testing performed by: [facility], [address] [place] [phone] Lymphocyte pct 32.5 % [facility] Comment: Interpretive Data Percent cell count reference ranges are not reported, since discordance with absolute values may lead to misinterpretation of CBC data. Current Interpretive Data was last revised on 2018. Testing performed by: [facility], [address] [place] [phone] Monocyte pct 9.5 % [facility] Comment:Testing performed by : [facility], [address] [place] [phone] Eosinophil pct 1.8 % [facility] Comment:Testing performed by : [facility], [address] [place] [phone] Basophil pct 1.4 % [facility] Comment:Testing performed by : [facility], [address] [place] [phone] Blood specimen (specimen) 07/28/2018 10:15 AM CDT 07/28/2018 10:15 AM CDT Narrative [facility] - 07/28/2018 10:24 AM CDT us Narcisa Kilgore DOORPERSON LAB BLOOD ORDERABLES Pilar l Result [facility] Department [place] [address] * (ABNORMAL) CBC with auto differential (07/28/2018 10:15 AM CDT) WBC 8.3 3.8 - 9.8 K/cumm [facility] Comment:Testing performed by : [address] [phone] Hgb 13.1(L) 13.8 - 17.2 g/dL [facility] Comment:Testing performed by : [facility], [address] [place], [place] [phone] Hct 37.6(L) 40.7 - 50.3 % [facility] Comment:Testing performed by : [facility], [address] [place] [address] Plt 212 140 - 440 K/cumm [facility] Comment:Testing performed by : [facility], [address] [place] [address] MPV 7.8 6.8 - 10.4 fL [facility] Comment:Testing performed by : [place] [address] RBC 3.56(L) 4.50 - 5.70 M/cumm [facility] Comment:Testing performed by : [place] [address] MCV 105.7(H) 80.0 - 97.6 fL [facility] Comment:Testing performed by : [facility], [address] [place] [address] MCH 36.8(H) 26.7 - 33.7 pg [facility] Comment:Testing performed by : [place] [address] MCHC 34.8 32.7 - 35.5 g/dL [facility] Comment:Testing performed by : [place] [address] RDW CV 13.4 11.8 - 14.6 % [facility] Comment:Testing performed by : [facility], [address] [place] [address] NRBC abs 0.00 0.00 - 0.01 K/cumm [facility] Comment:Testing performed by : [place] [id number] Blood specimen (specimen) 07/28/2018 10:15 AM CDT 07/28/2018 10:15 AM CDT Narrative [facility] - 07/28/2018 10:24 AM CDT Narcisa Kilgore DOORPERSON LAB BLOOD ORDERABLES Pilar l Result [facility] Department [place] [address] documented in this encounter Visit Diagnoses Diagnosis Acute myeloid leukemia in remission (HCC) 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 (HCC) Imlfh-bpkcrc-dahw disease (HCC) AML (acute myeloid leukemia) in remission (HCC) documented in this encounter Orders Appointment Requests Count Last Ordered Date Fi rst Ordered Date ONCBCN LAB APPOINTMENT 1 07/28/2018 documented in this encounter Additional Health Concerns Infection Onset Date 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
--- OUTSIDE RECORDS SUMMARY | 2024-11-22 13:09 | XMS_ITS | Encounter Summary ---
Author Organization [facility] Address [address] [place] [address] Phone Care Team Providers Care Self Propelled Dredge Operator Name Role Phone Kirt Lindsay DO Primary Care Provider [phone]- [phone] Encounter Details Date Type Department Care Team (Late st Contact Info) Description 05/02/2018 Orders Only [facility] Oncology [address] [facility] 7th [place] [address] [place] [address] Eneida Gibson MD [address] [place] [address] Osteopenia, unspecified location (Primary Dx) Social History Tobacco Use Types Packs/Day Years Used Date Smoking Tobacco: Every Day Sex and Gender Information Value Date Recorded Sex Assigned at Not on file 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 Gender Identity Not on file Sexual [...] D 25-OH 25(L) 30 - 80 ng/mL [facility] Blood specimen (specimen) 06/06/2018 9:25 AM CDT 06/06/2018 9:33 AM CDT Narrative [facility] - 06/06/2018 10:24 AM CDT Eneida Gibson MD LAB BLOOD ORDERABLES Final Resul t Performing Organization Address City/[facility] de Phone Number [facility] [place] [address] * (ABNORMAL) Hemoglobin A1c (06/06/2018 9:25 AM CDT) Pathologist [facility] Hgb A1C 6.3(H) 4.0 - 5.6 % [facility] Estimated Average Glucose 134 mg/dL [facility] Comment: The ADA recommends reporting an estimated Average Glucose (eAG) with all Hemoglobin A1c results using the equation derived from a study of 507 normal and diabetic adults. ??Minority populations were underrepresented and children were not included. ?? (Diabetes Care 31:4687-0300, 2008). ??The eAG is not equivalent to a fasting glucose. Blood specimen (specimen) 06/06/2018 9:25 AM CDT 06/06/2018 9:33 AM CDT Narrative [facility] - 06/06/2018 9:56 AM CDT Eneida Gibson MD LAB BLOOD ORDERABLES Final Resul t [facility] [place] [address] * (ABNORMAL) Comprehensive metabolic panel (06/06/2018 9:25 AM CDT) Sodium 144 135 - 145 mmol/L [facility] Potassium, pl 3.1(L) 3.3 - 4.9 mmol/L [facility] Chloride 107 97 - 110 mmol/L [facility] CO2 31 22 - 32 mmol/L [facility] Anion gap 6 2 - 15 mmol/L [facility] BUN 16 8 - 25 mg/dL [facility] Creatinine 0.90 0.80 - 1.30 mg/dL [facility] Glucose 135 70 - 199 mg/dL [facility] Comment: Interpretive Data Fasting glucose >/= 126 [...] 2017. Calcium 8.9 8.5 - 10.3 mg/dL [facility] Bilirubin, total 0.5 0.1 - 1.2 mg/dL [facility] Protein, pl 6.4(L) 6.5 - 8.5 g/dL [facility] Albumin 3.8 3.5 - 5.0 g/dL [facility] Alk phos 88 40 - 130 Units/L [facility] ALT 33 7 - 55 Units/L [facility] AST 38 10 - 50 Units/L [facility] Blood specimen (specimen) 06/06/2018 9:25 AM CDT 06/06/2018 9:33 AM CDT Narrative [facility] - 06/06/2018 10:02 AM CDT us Eneida Gibson MD LAB BLOOD ORDERABLES Final Resul t [facility] Department of Laboratories [place], [place] [id number] documented in this encounter Visit Diagnoses Diagnosis Osteopenia, unspecified location- Primary Osteopenia, unspecified location Acute myeloid leukemia in remission (HCC) Acute myeloid leukemia in remission documented in this encounter Additional Health Concerns Infection Onset Date Last Indicated Resolved Time VRE Comment:Backloaded September 06, 2011 11/26/2010 11/26/201006/18 5:00 AM CDT documented as of this encounter Care Teams Self Propelled Dredge Operator Relationship Specialty Start Date End Date Kirt Lindsay DO PCP - General 05/02/17 11/22/20 documented as of this encounter
--- OUTSIDE RECORDS SUMMARY | 2024-11-22 13:09 | XMS_ITS | Encounter Summary ---
Author Organization [facility] Address [address] [place] [address] Phone Care Team Providers Care Shredding Specialist Name Role Phone Kirt Lindsay DO Primary Care Provider [phone]- [phone] Encounter Details Date Type Department Care Team (Late st Contact Info) Description 06/24/[address] 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 Reorder 06/09/2018 06/24/2018 documented as of this encounter Additional Health Concerns Infection Onset Date Last Indicated Resolved Time VRE Comment:Backloaded September 06, 2011 11/26/2010 11/26/201006/18 5:00 AM CDT documented as of this encounter Care Teams Shredding Specialist Relationship Specialty Start Date End Date Kirt Lindsay DO PCP - General 05/02/17 11/22/20 documented as of this encounter
--- OUTSIDE RECORDS SUMMARY | 2024-11-22 13:09 | XMS_ITS | Encounter Summary ---
Author Organization [facility] Healthcare Address [address] [place] [address] Care Team Providers Care Certified Family Mediator Name Role Phone Kirt Lindsay DO Primary Care Provider [phone] Encounter Details Date Type Department Care Team (Latest Contact Info) Description 11/26/2017 3:54 PM UTILITY BILL COLLECTOR - 02/24/2018 11:59 PM CDT Hospital Encounter [facility] OP INTERIM [phone] Eneida Gibson MD [address] [place] [address] Discharge Disposition: Discharge to home or self care Social History Tobacco Use Types Packs/Day Years Used Date Smoking Tobacco: Every Day Sex and Gender Information Value Date Recorded Sex Assigned at Not on file Legal Sex Male 10:48 AM UTILITY BILL COLLECTOR Gender Identity Not on file Sexual [...] [facility] Take 1 tablet by mouth daily. 12/14/2016 [...] kitIndications:A ML (acute myeloid leukemia) in remission ([facility]) USE DIRECTED AT SCHOOL AND HOME 12/14/2013 11/28/2019 insulin glargine (LANTUS U-100 INSULIN) 100 unit/mL injectionIndicat ions:AML (acute myeloid leukemia) in remission (HCC),Type 2 diabetes mellitus with hyperglycemia, with long-term current use of insulin ([facility]) INJECT 15 UNIT BEDTIME 12/18/2017 06/06/2018 insulin lispro (HumaLOG U-100 Insulin) 100 unit/mL injectionIndicat ions:AML (acute myeloid leukemia) in remission (HCC),Type 2 diabetes mellitus with hyperglycemia, with long-term current use of insulin ([facility]) 1-3 units subQ 3 times a day [...] DIFFERENTIAL Routine Gen Lab 12/27/2017 11:35 AM UTILITY BILL COLLECTOR CMV DNA QN, PCR Routine Gen Lab 12/27/2017 11:35 AM UTILITY BILL COLLECTOR URIC ACID Routine Gen Lab 12/27/2017 11:35 AM UTILITY BILL COLLECTOR LACTATE DEHYDROGENASE Routine Gen Lab 12/27/2017 11:35 AM UTILITY BILL COLLECTOR COMPREHENSIVE METABOLIC PANEL Routine Gen Lab 12/27/2017 11:35 AM UTILITY BILL COLLECTOR CORTISOL 60 MIN After X-Ray 12/18/2017 3:00 PM UTILITY BILL COLLECTOR CORTISOL 30 MIN After X-Ray 12/18/2017 2:12 PM UTILITY BILL COLLECTOR BLOOD CULTURE Routine Gen Lab 12/18/2017 1:20 PM UTILITY BILL COLLECTOR CORTISOL BASELINE After X-Ray 12/18/2017 1:1 2 PM UTILITY BILL COLLECTOR BLOOD CULTURE Routine Gen Lab 12/18/2017 1:11 PM UTILITY BILL COLLECTOR CBC WITH AUTO DIFFERENTIAL Routine Gen Lab 12/18/2017 9:37 AM UTILITY BILL COLLECTOR LACTATE DEHYDROGENASE Routine Gen Lab 12/18/2017 9:35 AM UTILITY BILL COLLECTOR COMPREHENSIVE METABOLIC PANEL Routine Gen Lab 12/18/2017 9:35 AM UTILITY BILL COLLECTOR DISCHARGE LABORATORY CUMULATIVE REPORT 11/26/2017 12:00 AM UTILITY BILL COLLECTOR documented in this encounter Results * (ABNORMAL) CBC with auto differential (02/24/2018 10:39 AM CDT) WBC 13.3(H) 3.8 - 9.8 K/cumm [facility] RBC 3.96(L) 4.50 - 5.70 M/cumm [facility] Hgb 14.8 13.8 - 17.2 g/dL [facility] Hct 43.3 40.7 - 50.3 % [facility] Mean Cellular Volume - CAM 109.4(H) 80.0 - 97.6 fL [facility] Mean Cellular Hemoglobin - CAM 37.3(H) 26.7 - 33.7 pg [facility] Comment:Result consistent wi th previously reported values. Mean Cellular Hemoglobin Concentration - CAM 34.1 32.7 - 35.5 g/dL [facility] Rdw 15.7(H) 11.8 - 14.6 % [facility] Plt 245 140 - 440 K/cumm [facility] Mean Platelet Volume - CAM 7.6 6.8 - 10.4 fL [facility] Neutrophil pct 87.2(H) 38.7 - 74.5 % [facility] Lymphocyte pct 8.9(L) 20.0 - 54.3 % [facility] Monos 3.5(L) 4.3 - 13.5 % [facility] Eosinophil pct 0.1 0.0 - 6.0 % [facility] Basophil pct 0.3 0.0 - 3.0 % [facility] Neutrophil abs 11.6(H) 1.8 - 6.6 K/cumm [facility] Lymphocyte abs 1.2 1.2 - 3.3 K/cumm [facility] Monocyte abs 0.5 0.2 - 1.2 K/cumm [facility] Eosinophils, abs 0.0 0.0 - 0.5 K/cumm [facility] Basophil abs 0.0 0.0 - 0.2 K/cumm [facility] NRBC 0.1 0.0 - 0.2 % [facility] NRBC abs 0.01 0.00 - 0.01 K/cumm [facility] Blood specimen (specimen) 02/24/2018 10:39 AM CDT 02/24/2018 10:43 AM CDT Narrative [facility] - 02/24/2018 10:47 AM CDT us Josué Del Valle MD PhD LAB BLOOD ORDERABLES Fin al Result [facility] Department [place] [address] * Testosterone (02/24/2018 10:35 AM CDT) Testosterone 461 241 - 827 ng/dL [facility] Comment: Interpretive Data Male: ??Age 19-71 yrs: ?? 241 - 827 ng/dL Female: ??Age 15-75 yrs: ?? 14 - 76 ng/dL Current interpretive data was last revised on 2013. Blood specimen (specimen) 02/24/2018 10:35 AM CDT 02/24/2018 10:57 AM CDT Narrative [facility] - 02/24/2018 12:43 PM CDT Josué Del Valle MD PhD LAB BLOOD ORDERABLES Fin al Result Performing Organization Address City/[facility] Co de Phone Number [facility] [place] [address] * (ABNORMAL) Vitamin D 25 hydroxy (02/24/2018 10:35 AM CDT) Pathologist [facility] Vitamin D 25-OH 11(L) 30 - 80 ng/mL [facility] Blood specimen (specimen) 02/24/2018 10:35 AM CDT 02/24/2018 10:57 AM CDT Narrative [facility] - 02/24/2018 12:01 PM CDT Josué Del Valle MD PhD LAB BLOOD ORDERABLES Fin al Result Performing Organization Address City/[facility] Co de Phone Number [facility] [place] [address] * TSH reflex to free T4 (02/24/2018 10:35 AM CDT) Pathologist [facility] TSH 0.62 0.30 - 4.20 mcIUnit/mL [facility] Comment: Interpretive Data Hyperthyroid: ??<0.1 mcIUnit/mL Hypothyroid: ??>12.0 mcIUnit/mL Current interpretive data was last revised on 01. Blood specimen (specimen) 02/24/2018 10:35 AM CDT 02/24/2018 10:57 AM CDT Narrative [facility] - 02/24/2018 11:43 AM CDT us Josué Del Valle MD PhD LAB BLOOD ORDERABLES Fin al Result [facility] [place] [address] * Lipid panel (02/24/2018 10:35 AM CDT) Cholesterol 160 30 - 200 mg/dL [facility] Comment: Interpretive Data Desirable: ?<200 mg/dL Borderline high: ??200-239 mg/dL High: ? > or = 240 mg/dL Literature Reference: National Cholesterol Education Program (NCEP) Expert Panel on Detection, Evaluation, and Treatment of High Blood Cholesterol in Adults (Adult Treatment Panel III). ??Circulation 2004; 110:227. Current interpretive data was last revised on 2015. Triglycerides 125 0 - 150 mg/dL [facility] Comment: Interpretive Data Desirable: ? < 150 mg/dL Borderline High: ? 150 - 199 mg/dL High: ?200 - 499 mg/dL Very High: ? > or = 499 mg/dL Literature Reference: See Cholesterol Current interpretive data was last revised on 2015. HDL 69 >=40 mg/dL [facility] Comment: Interpretive Data Less than 40 mg/dL - low; A major risk factor for heart disease. Greater than or equal to 60 mg/dL - High; ??considered protective of heart disease. Literature Reference: See Cholesterol Current interpretive data was last revised on 2015. LDL, calculated 66 10 - 129 mg/dL [facility] Comment: Interpretive Data Optimal: ? < 100 mg/dL Near Optimal: ?100 - 129 mg/dL Borderline High: ?? 130 - 159 mg/dL High: ?160 - 189 mg/dL Very high: ? > or = 190 mg/dL Literature Reference: See Cholesterol Current interpretive data was last revised on 2015. Non-HDL Cholesterol 91 mg/dL [facility] Comment: Interpretive Data When triglycerides are >200 mg/dL, non-HDL C is a secondary target of therapy, with a goal 30 mg/dL higher than the identified LDL-C goal. Reference: ??See Cholesterol Reference. Current interpretive data was last revised 2015. Blood specimen (specimen) 02/24/2018 10:35 AM CDT 02/24/2018 10:57 AM CDT Narrative [facility] - 02/24/2018 11:36 AM CDT us Josué Del Valle MD PhD LAB BLOOD ORDERABLES Fin al Result [facility] [place] [address] * (ABNORMAL) Comprehensive metabolic panel (02/24/2018 10:35 AM CDT) Sodium 139 135 - 145 mmol/L [facility] Potassium, pl 3.8 3.3 - 4.9 mmol/L [facility] CO2 32 22 - 32 mmol/L [facility] BUN 11 8 - 25 mg/dL [facility] Glucose 295(H) 70 - 199 mg/dL [facility] 2017. Creatinine 0.71(L) 0.80 - 1.30 mg/dL [facility] Calcium 9.3 8.5 - 10.3 mg/dL [facility] Chloride 100 97 - 110 mmol/L [facility] Albumin 3.9 3.5 - 5.0 g/dL [facility] AST 43 10 - 50 Units/L [facility] ALT 70(H) 7 - 55 Units/L [facility] Alk phos 148(H) 40 - 130 Units/L [facility] Bilirubin, total 0.4 0.1 - 1.2 mg/dL [facility] Protein, pl 7.1 6.5 - 8.5 g/dL [facility] Anion gap 6 2 - 15 mmol/L [facility] Blood specimen (specimen) 02/24/2018 10:35 AM CDT 02/24/2018 10:57 AM CDT Narrative [facility] - 02/24/2018 11:36 AM CDT us Josué Del Valle MD PhD LAB BLOOD ORDERABLES Fin al Result Performing Organization Address City/[facility] Co de Phone Number [facility] [place] [address] * (ABNORMAL) Lactate dehydrogenase (LD) (02/24/2018 10:35 AM CDT) Lactate dehydrogenase (LDH) 270(H) 100 - 250 Units/L [facility] Blood specimen (specimen) 02/24/2018 10:35 AM CDT 02/24/2018 10:57 AM CDT Narrative [facility] - 02/24/2018 11:36 AM CDT Josué Del Valle MD PhD LAB BLOOD ORDERABLES Fin al Result [facility] [place] [address] * (ABNORMAL) Hemoglobin A1c (02/24/2018 10:35 AM CDT) [facility] Hgb A1C 6.9(H) 4.0 - 5.6 % [facility] Estimated Average Glucose 151 mg/dL [facility] Comment: The ADA recommends reporting an estimated Average Glucose (eAG) with all Hemoglobin A1c results using the equation derived from a study of 507 normal and diabetic adults. ??Minority populations were underrepresented and children were not included. ?? (Diabetes Care 31:5457-9439, 2007). ??The eAG is not equivalent to a fasting glucose. Blood specimen (specimen) 02/24/2018 10:35 AM CDT 02/24/2018 10:57 AM CDT Narrative [facility] - 02/24/2018 11:25 AM CDT us Eneida Gibson MD LAB BLOOD ORDERABLES Final Resul t [facility] [place] [address] * (ABNORMAL) CBC with auto differential (12/27/2017 11:35 AM UTILITY BILL COLLECTOR) [facility] WBC 13.6(H) 3.8 - 9.8 K/cumm [facility] RBC 3.59(L) 4.50 - 5.70 M/cumm [facility] Hgb 12.5(L) 13.8 - 17.2 g/dL [facility] Hct 37.7(L) 40.7 - 50.3 % [facility] Mean Cellular Volume - CAM 105.0(H) 80.0 - 97.6 fL [facility] Mean Cellular Hemoglobin - CAM 34.7(H) 26.7 - 33.7 pg [facility] Mean Cellular Hemoglobin Concentration - CAM 33.0 32.7 - 35.5 g/dL [facility] Rdw 18.2(H) 11.8 - 14.6 % [facility] Plt 270 140 - 440 K/cumm [facility] Mean Platelet Volume - CAM 7.2 6.8 - 10.4 fL [facility] Neutrophil pct 86.3(H) 38.7 - 74.5 % [facility] Lymphocyte pct 11.1(L) 20.0 - 54.3 % [facility] Monos 2.2(L) 4.3 - 13.5 % [facility] Eosinophil pct 0.1 0.0 - 6.0 % [facility] Basophil pct 0.3 0.0 - 3.0 % [facility] Neutrophil abs 11.7(H) 1.8 - 6.6 K/cumm [facility] Lymphocyte abs 1.5 1.2 - 3.3 K/cumm [facility] Monocyte abs 0.3 0.2 - 1.2 K/cumm [facility] Eosinophils, abs 0.0 0.0 - 0.5 K/cumm [facility] Basophil abs 0.0 0.0 - 0.2 K/cumm [facility] NRBC 5.7(H) 0.0 - 0.2 % [facility] NRBC abs 0.77(H) 0.00 - 0.01 K/cumm [facility] Blood specimen (specimen) 12/27/2017 11:35 AM UTILITY BILL COLLECTOR 12/27/2017 11:38 AM UTILITY BILL COLLECTOR Narrative [facility] - 12/27/2017 11:46 AM UTILITY BILL COLLECTOR Josué Del Valle MD PhD LAB BLOOD ORDERABLES Fin al Result [facility] [place] [address] * CMV DNA QN, PCR (12/27/2017 11:35 AM UTILITY BILL COLLECTOR) [facility] CMV DNA Not Detected [facility] Comment: Interpretive Data: The quantifiable range of this assay is 137 IUnits/mL to 9,100,000 IUnits/mL (2.14 log IUnits/mL to 6.96 log IUnits/mL). Testing was performed by the [employer] AmpliPrep/MICHEL TaqMan CMV Test ([employer] Testing performed at [facility] Current interpretive data was last revised on 17. Blood specimen (specimen) 12/27/2017 11:35 AM UTILITY BILL COLLECTOR 12/27/2017 1:31 PM UTILITY BILL COLLECTOR Narrative [facility] - 12/27/2017 6:49 PM UTILITY BILL COLLECTOR Josué Del Valle MD PhD LAB MICROBIOLOGY - GENER AL ORDERABLES Final Result [facility] [place] [address] * (ABNORMAL) Comprehensive metabolic panel (12/27/2017 11:35 AM UTILITY BILL COLLECTOR) Sodium 144 135 - 145 mmol/L [facility] Potassium, pl 2.6(L) 3.3 - 4.9 mmol/L [facility] CO2 36(H) 22 - 32 mmol/L [facility] BUN 7(L) 8 - 25 mg/dL [facility] Glucose 184 70 - 199 mg/dL [facility] 2017. Creatinine 0.72(L) 0.80 - 1.30 mg/dL [facility] Calcium 8.1(L) 8.5 - 10.3 mg/dL [facility] Chloride 102 97 - 110 mmol/L [facility] Albumin 3.3(L) 3.5 - 5.0 g/dL [facility] AST 27 10 - 50 Units/L [facility] ALT 23 7 - 55 Units/L [facility] Alk phos 230(H) 40 - 130 Units/L [facility] Bilirubin, total 0.4 0.1 - 1.2 mg/dL [facility] Protein, pl 6.9 6.5 - 8.5 g/dL [facility] Anion gap 6 2 - 15 mmol/L [facility] Blood specimen (specimen) 12/27/2017 11:35 AM UTILITY BILL COLLECTOR 12/27/2017 11:48 AM UTILITY BILL COLLECTOR Narrative [facility] - 12/27/2017 12:21 PM UTILITY BILL COLLECTOR Josué Del Valle MD PhD LAB BLOOD ORDERABLES Fin al Result Performing Organization Address City/[facility] Co de Phone Number [facility] [place] [address] * Uric acid (12/27/2017 11:35 AM UTILITY BILL COLLECTOR) Uric acid 4.2 3.0 - 8.0 mg/dL [facility] Blood specimen (specimen) 12/27/2017 11:35 AM UTILITY BILL COLLECTOR 12/27/2017 11:48 AM UTILITY BILL COLLECTOR Narrative [facility] - 12/27/2017 12:21 PM UTILITY BILL COLLECTOR Josué Del Valle MD PhD LAB BLOOD ORDERABLES Fin al Result Performing Organization Address [facility] de Phone Number [facility] [place] [address] * Lactate dehydrogenase (LD) (12/27/2017 11:35 AM UTILITY BILL COLLECTOR) Lactate dehydrogenase (LDH) 225 100 - 250 Units/L [facility] Blood specimen (specimen) 12/27/2017 11:35 AM UTILITY BILL COLLECTOR 12/27/2017 11:48 AM UTILITY BILL COLLECTOR Narrative [facility] - 12/27/2017 12:21 PM UTILITY BILL COLLECTOR Josué Del Valle MD PhD LAB BLOOD ORDERABLES Fin al Result Performing Organization Address City/[facility] [place] [address] * Cortisol 60 min (12/18/2017 3:00 PM UTILITY BILL COLLECTOR) Cortisol, 60 min 20.8 mcg/dL [facility] Comment: Interpretive Data Maximal plasma cortisol [...] 2014 Blood specimen (specimen) 12/18/2017 3:00 PM UTILITY BILL COLLECTOR 12/18/2017 3:24 PM UTILITY BILL COLLECTOR N[facility]ative [facility] - 12/18/2017 4:56 PM UTILITY BILL COLLECTOR us Eneida Gibson MD LAB BLOOD ORDERABLES Final Resul t [facility] [place] [address] * Cortisol 30 min (12/18/2017 2:12 PM UTILITY BILL COLLECTOR) Cortisol, 30 min 16.5 mcg/dL [facility] Comment: Interpretive Data Maximal plasma cortisol ??>18 [...] 2014. Blood specimen (specimen) 12/18/2017 2:12 PM UTILITY BILL COLLECTOR 12/18/2017 3:24 PM UTILITY BILL COLLECTOR Narrative [facility] - 12/18/2017 4:56 PM UTILITY BILL COLLECTOR Eneida Gibson MD LAB BLOOD ORDERABLES Final Resul t Performing Organization Address [facility] Co de Phone Number [facility] [place] [address] * Blood culture (12/18/2017 1:20 PM UTILITY BILL COLLECTOR) Report Final Report: No growth [facility] Blood specimen (specimen) 12/18/2017 1:20 PM UTILITY BILL COLLECTOR 12/18/2017 5:08 PM UTILITY BILL COLLECTOR Narrative [facility] - 12/19/2017 7:01 AM UTILITY BILL COLLECTOR Blood cultures are incubated for five days on a continuously monitored blood culture system. ??The first report of a negative culture is issued within 24 hours of receipt of the specimen in the laboratory. ??Positive culture results are reported as soon as they are detected. ??For blood cultures with gram-positive cocci, a rapid molecular test for organism identification may be performed using the [employer] ASO Nanosphere Gram Positive Blood Culture Assay. ??The Nanosphere assay detects microbial DNA in positive blood culture broth via hybridization of target DNA to capture oligonucleotides on a microarray. ??This assay has been cleared by the [place] Food and Drug Administration and its performance characteristics have been verified by the [facility]. Current Interpretive Data was last revised on 2014. Eneida Gibson MD LAB MICROBIOLOGY - GENERAL ORDER SUBHA Final Result Performing Organization Address [facility] Co de Phone Number [facility] [place] [place] [address] * Cortisol baseline (12/18/2017 1:12 PM UTILITY BILL COLLECTOR) Cortisol, base 12.9 mcg/dL [facility] Blood specimen (specimen) 12/18/2017 1:12 PM UTILITY BILL COLLECTOR 12/18/2017 3:24 PM UTILITY BILL COLLECTOR Narrative [facility] - 12/18/2017 4:58 PM UTILITY BILL COLLECTOR Eneida Gibson MD LAB BLOOD ORDERABLES Final Resul t Performing Organization Address [facility] Co de Phone [place] [address] * Blood culture (12/18/2017 1:11 PM UTILITY BILL COLLECTOR) Report Final Report: No growth [facility] Blood specimen (specimen) 12/18/2017 1:11 PM UTILITY BILL COLLECTOR 12/18/2017 5:07 PM UTILITY BILL COLLECTOR Narrative [facility] - 12/19/2017 7:01 AM UTILITY BILL COLLECTOR Blood cultures are incubated for five days on a continuously monitored blood culture system. ??The first report of a negative culture is issued within 24 hours of receipt of the specimen in the laboratory. ??Positive culture results are reported as soon as they are detected. ??For blood cultures with gram-positive cocci, a rapid molecular test for organism identification may be performed using the [employer] ASO Nanosphere Gram Positive Blood Culture Assay. ??The Nanosphere assay detects microbial DNA in positive blood culture broth via hybridization of target DNA to capture oligonucleotides on a microarray. ??This assay has been cleared by the [place] Food and Drug Administration and its performance characteristics have been verified by the [facility]. Current Interpretive Data was last revised on 2014. Eneida Gibson MD LAB MICROBIOLOGY - GENERAL ORDER SUBHA Final Result Performing Organization Address [facility] Co de Phone Number [facility] [place] [address] * (ABNORMAL) CBC with auto differential (12/18/2017 9:37 AM UTILITY BILL COLLECTOR) WBC 11.1(H) 3.8 - 9.8 K/cumm [facility] RBC 3.49(L) 4.50 - 5.70 M/cumm [facility] Hgb 12.0(L) 13.8 - 17.2 g/dL [facility] Hct 35.9(L) 40.7 - 50.3 % [facility] Mean Cellular Volume - CAM 103.1(H) 80.0 - 97.6 fL [facility] Mean Cellular Hemoglobin - CAM 34.3(H) 26.7 - 33.7 pg [facility] Mean Cellular Hemoglobin Concentration - CAM 33.3 32.7 - 35.5 g/dL [facility] Rdw 15.3(H) 11.8 - 14.6 % [facility] Plt 391 140 - 440 K/cumm [facility] Mean Platelet Volume - CAM 7.7 6.8 - 10.4 fL [facility] Neutrophil pct 39.5 38.7 - 74.5 % [facility] Lymphocyte pct 45.8 20.0 - 54.3 % [facility] Monos 10.0 4.3 - 13.5 % [facility] Eosinophil pct 3.3 0.0 - 6.0 % [facility] Basophil pct 1.4 0.0 - 3.0 % [facility] Neutrophil abs 4.4 1.8 - 6.6 K/cumm [facility] Lymphocyte abs 5.1(H) 1.2 - 3.3 K/cumm [facility] Monocyte abs 1.1 0.2 - 1.2 K/cumm [facility] Eosinophils, abs 0.4 0.0 - 0.5 K/cumm [facility] Basophil abs 0.2 0.0 - 0.2 K/cumm [facility] NRBC 0.4(H) 0.0 - 0.2 % [facility] NRBC abs 0.05(H) 0.00 - 0.01 K/cumm [facility] Blood specimen (specimen) 12/18/2017 9:37 AM UTILITY BILL COLLECTOR 12/18/2017 9:40 AM UTILITY BILL COLLECTOR Narrative [facility] - 12/18/2017 9:45 AM UTILITY BILL COLLECTOR us Eneida Gibson MD LAB BLOOD ORDERABLES Final Resul t [facility] [place] [address] * (ABNORMAL) Comprehensive metabolic panel (12/18/2017 9:35 AM UTILITY BILL COLLECTOR) [facility] Sodium 136 135 - 145 mmol/L [facility] Potassium, pl 3.9 3.3 - 4.9 mmol/L [facility] CO2 26 22 - 32 mmol/L [facility] BUN 12 8 - 25 mg/dL [facility] Glucose 200(H) 70 - 199 mg/dL [facility] 2017. Creatinine 0.86 0.80 - 1.30 mg/dL [facility] Calcium 9.0 8.5 - 10.3 mg/dL [facility] Chloride 98 97 - 110 mmol/L [facility] Albumin 3.2(L) 3.5 - 5.0 g/dL [facility] AST 24 10 - 50 Units/L [facility] ALT 25 7 - 55 Units/L [facility] Alk phos 416(H) 40 - 130 Units/L [facility] Bilirubin, total 0.3 0.1 - 1.2 mg/dL [facility] Protein, pl 8.1 6.5 - 8.5 g/dL [facility] Anion gap 12 2 - 15 mmol/L [facility] Blood specimen (specimen) 12/18/2017 9:35 AM UTILITY BILL COLLECTOR 12/18/2017 10:23 AM UTILITY BILL COLLECTOR Narrative [facility] - 12/18/2017 11:01 AM UTILITY BILL COLLECTOR us Eneida Gibson MD LAB BLOOD ORDERABLES Final Resul t [facility] [place] [address] * Lactate dehydrogenase (LD) (12/18/2017 9:35 AM UTILITY BILL COLLECTOR) Lactate dehydrogenase (LDH) 195 100 - 250 Units/L [facility] Blood specimen (specimen) 12/18/2017 9:35 AM UTILITY BILL COLLECTOR 12/18/2017 10:23 AM UTILITY BILL COLLECTOR Narrative [facility] - 12/18/2017 11:01 AM UTILITY BILL COLLECTOR us Eneida Gibson MD LAB BLOOD ORDERABLES Final Resul t [facility] [place] [address] * DISCHARGE LABORATORY CUMULATIVE REPORT (11/26/2017 12:00 AM UTILITY BILL COLLECTOR) Narrative 11/26/2017 12:00 AM UTILITY BILL COLLECTOR Ordered by an unspecified provider. 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
--- OUTSIDE RECORDS SUMMARY | 2024-11-22 13:09 | XMS_ITS | Encounter Summary ---
Author Organization [facility] Address [address] [place] [address] Phone Care Team Providers Care Planer Tailer Name Role Phone Kirt Lindsay DO Primary Care Provider +1- [phone] Encounter Details Date Type Department Care Team (Late st Contact Info) Description 06/13/2018 Orders Only 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
--- OUTSIDE RECORDS SUMMARY | 2024-11-22 13:09 | XMS_ITS | Encounter Summary ---
Author Organization [facility] Address [address] [place] [address] Phone Care Team Providers Care Cat And Dog Bather Name Role Phone Kirt Lindsay DO Primary Care Provider [phone]- [phone] Reason for Referral * Diagnostic Imaging (Routine) - Canceled Specialty Diagnoses / Procedures Referred By Contac t Referred To Contact Diagnoses Osteopenia of multiple sites Procedures Dexa Axial Skeleton Bone Density 1 or 2 Site Eneida Gibson MD Phone: tel: [facility] (All Locations) Referral ID Status Reason Start Date Expiration Date V isits Requested Visits Authorized [id number] Canceled 03/25/2018 11/04/2019 1 1 Encounter Details Date Type Department Care Team (Late st Contact Info) Description 03/25/2018 Orders Only 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 ?? Machine Cross-calibration and Precision [...] density scan were prepared by Bela Bauman (R[facility] who is accredited by the International Society of Clinical Densitometry. The overall patient assessment and scan interpretation were performed by Justine Banks M.D. who is certified by the International Society of Clinical Densitometry. [id number] Eneida Gibson MD IMG DXA PROCEDURES Final Result documented in this encounter Visit Diagnoses Diagnosis Osteopenia of multiple sites- Primary Osteopenia of multiple sites Osteopenia of left hip long term acute care registered nurse 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 documented in this encounter Additional Health Concerns Infection Onset Date Last Indicated Resolved Time VRE Comment:Backloaded September 06, 2011 11/26/2010 11/26/201006/18 5:00 AM CDT documented as of this encounter Care Teams Cat And Dog Bather Relationship Specialty Start Date End Date Kirt Lindsay DO PCP - General 05/02/17 11/22/20 documented as of this encounter
--- OUTSIDE RECORDS SUMMARY | 2024-11-22 13:09 | XMS_ITS | Encounter Summary ---
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); Zczwm-hitpql-ipah disease (CMS/HCC); Type 2 diabetes mellitus with hyperglycemia, with long-term current use of insulin (CMS/[facility]) Social History Tobacco Use Types Packs/Day Years Used Date Smoking Tobacco: Every Day Sex and Gender Information Value Date Recorded Sex Assigned at Not on file Legal 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 08/31/2015 06/06/2018 atorvastatin (LIPITOR) 40 mg tabletIndication s:AML (acute myeloid leukemia) in remission (HCC),Type 2 diabetes mellitus with hyperglycemia, with long-term current use of insulin ([facility]) Take 1 tablet by mouth [...] documented as of this encounter Care Teams Precipitator Supervisor Relationship Specialty Start Date End Date Kirt Lindsay DO PCP - General 05/02/17 11/22/20 documented as of this encounter
--- OUTSIDE RECORDS SUMMARY | 2024-11-22 13:09 | XMS_ITS | Encounter Summary ---
Author Organization [facility] Address [address] [place] [address] Phone Care Team Providers Care Infectious Waste Technician Name Role Phone Kirt Lindsay DO Primary Care Provider +1- [phone] Encounter Details Date Type Department Care Team (Late st Contact Info) Description 06/19/2018 Documentation [facility] Oncology [address] [facility] 7th [place] [address] [place] [address] Eneida Gibson MD [address] [place] [address] Social History Tobacco Use Types Packs/Day Years Used Date Smoking Tobacco: Every Day Smokeless Tobacco: Never Sex and Gender Information Value Date Recorded Sex Assigned at Not on file 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
--- OUTSIDE RECORDS SUMMARY | 2024-11-22 13:09 | XMS_ITS | Encounter Summary ---
Author Organization [facility] Address [address] [place] [address] Phone Care Team Providers Care Barrel Charrer Helper Name Role Phone Kirt Lindsay DO Primary Care Provider +1- [phone] Encounter Details Date Type Department Care Team (Late st Contact Info) Description 06/06/2018 9:00 AM CDT Lab [facility] Oncology [address] [facility] 7th [place] [address] [place] [address] Osteopenia, unspecified location; 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) Social History Tobacco Use Types Packs/Day Years Used Date Smoking Tobacco: Every Day Smokeless Tobacco: Never Sex and Gender Information Value Date Recorded Sex Assigned at Not on file Legal 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 Gender Identity Not on file Sexual Orientation [...] D 25 hydroxy (06/06/2018 9:25 AM CDT) [facility] Vitamin D 25-OH 25(L) 30 - 80 ng/mL [facility] Blood specimen (specimen) 06/06/2018 9:25 AM CDT 06/06/2018 9:33 AM CDT Narrative [facility] - 06/06/2018 10:24 AM CDT us Eneida Gibson MD LAB BLOOD ORDERABLES Final Resul t [facility] Department [place] [address] * (ABNORMAL) Hemoglobin A1c (06/06/2018 9:25 AM CDT) [facility] Hgb A1C 6.3(H) 4.0 - 5.6 % [facility] Estimated Average Glucose 134 mg/dL [facility] Comment: The ADA recommends reporting an estimated Average Glucose (eAG) with all Hemoglobin A1c results using the equation derived from a study of 507 normal and diabetic adults. ??Minority populations were underrepresented and children were not included. ?? (Diabetes Care 31:8102-8673, 2008). ??The eAG is not equivalent to a fasting glucose. Blood specimen (specimen) 06/06/2018 9:25 AM CDT 06/06/2018 9:33 AM CDT Narrative [facility] - 06/06/2018 9:56 AM CDT us Eneida Gibson MD LAB BLOOD ORDERABLES Final Resul t [facility] Department [place] [address] * (ABNORMAL) Comprehensive metabolic panel (06/06/2018 9:25 AM CDT) Sodium 144 135 - 145 mmol/L [facility] Potassium, pl 3.1(L) 3.3 - 4.9 mmol/L [facility] Chloride 107 97 - 110 mmol/L [facility] CO2 31 22 - 32 mmol/L [facility] Anion gap 6 2 - 15 mmol/L [facility] BUN 16 8 - 25 mg/dL [facility] Creatinine 0.90 0.80 - 1.30 mg/dL [facility] Glucose 135 70 - 199 mg/dL [facility] Comment: Interpretive Data Fasting [...] Calcium 8.9 8.5 - 10.3 mg/dL [facility] Bilirubin, total 0.5 0.1 - 1.2 mg/dL [facility] Protein, pl 6.4(L) 6.5 - 8.5 g/dL [facility] Albumin 3.8 3.5 - 5.0 g/dL [facility] Alk phos 88 40 - 130 Units/L [facility] ALT 33 7 - 55 Units/L [facility] AST 38 10 - 50 Units/L [facility] Blood specimen (specimen) 06/06/2018 9:25 AM CDT 06/06/2018 9:33 AM CDT Narrative [facility] - 06/06/2018 10:02 AM CDT Eneida Gibson MD LAB BLOOD ORDERABLES Final Resul t Performing Organization Address [facility] de Phone Number [facility] Department [place] [address] * (ABNORMAL) Lactate dehydrogenase (LD) (06/06/2018 9:25 AM CDT) Pathologist [facility] Lactate dehydrogenase (LDH) 296(H) 100 - 250 Units/L [facility] Blood specimen (specimen) 06/06/2018 9:25 AM CDT 06/06/2018 9:33 AM CDT Narrative [facility] - 06/06/2018 10:02 AM CDT Narcisa Kilgore NP LAB BLOOD ORDERABLES Pilar l Result Performing Organization Address [facility] de Phone Number [facility] [place] [address] * (ABNORMAL) Differential, auto (06/06/2018 9:24 AM CDT) Pathologist [facility] Neutrophil abs 4.0 1.8 - 6.6 K/cumm [facility] Comment:Testing performed by : [facility], [address] [place] [phone] Lymphocyte abs 4.8(H) 1.2 - 3.3 K/cumm [facility] Comment:Testing performed by : [facility], [address] [place] [phone] Monocyte abs 0.9 0.2 - 1.2 K/cumm [facility] Comment:Testing performed by : [facility], [address] [place] [phone] Eosinophil abs 0.1 0.0 - 0.5 K/cumm [facility] Comment:Testing performed by : [facility], [address] [place] [phone] Basophil abs 0.1 0.0 - 0.2 K/cumm [facility] Comment:Testing performed by : [facility], [address] [place] [phone] Neutrophil pct 40.4 % [facility] Comment: Interpretive Data Percent cell count reference ranges are not reported, since discordance with absolute values may lead to misinterpretation of CBC data. Current Interpretive Data was last revised on 2018. Testing performed by: [facility], [address] [place] [phone] Lymphocyte pct 47.6 % [facility] Comment: Interpretive Data Percent cell count reference ranges are not reported, since discordance with absolute values may lead to misinterpretation of CBC data. Current Interpretive Data was last revised on 2018. Testing performed by: [facility], [address] [place] [phone] Monocyte pct 9.4 % [facility] Comment:Testing performed by : [facility], [address] [place] [phone] Eosinophil pct 1.5 % [facility] Comment:Testing performed by : [facility], [address] [place] [phone] Basophil pct 1.1 % [facility] Comment:Testing performed by : [facility], [address] [place] [phone] Blood specimen (specimen) 06/06/2018 9:24 AM CDT 06/06/2018 9:26 AM CDT Narrative [facility] - 06/06/2018 9:30 AM CDT us Narcisa Kilgore PRACTICE BILLING ASSOCIATE LAB BLOOD ORDERABLES Pilar l Result [facility] [place] [address] * (ABNORMAL) CBC with auto differential (06/06/2018 9:24 AM CDT) WBC 10.0(H) 3.8 - 9.8 K/cumm [facility] Comment:Testing performed by : [facility], [address] [place] [address] Hgb 14.2 13.8 - 17.2 g/dL [facility] Comment:Testing performed by : [facility], [address] [place] [address] Hct 41.7 40.7 - 50.3 % [facility] Comment:Testing performed by : [place] [address] Plt 215 140 - 440 K/cumm [facility] Comment:Testing performed by : [facility], [address] [place] [address] MPV 7.1 6.8 - 10.4 fL [facility] Comment:Testing performed by : [place] [address] RBC 3.84(L) 4.50 - 5.70 M/cumm [facility] Comment:Testing performed by : [place] [address] MCV 108.5(H) 80.0 - 97.6 fL [facility] Comment:Testing performed by : [facility], [address] [place] [address] MCH 37.0(H) 26.7 - 33.7 pg [facility] Comment:Testing performed by : [place] [address] MCHC 34.1 32.7 - 35.5 g/dL [facility] Comment:Testing performed by : [place] [address] RDW CV 14.9(H) 11.8 - 14.6 % [facility] Comment:Testing performed by : [place] [address] NRBC abs 0.02(H) 0.00 - 0.01 K/cumm [facility] Comment:Testing performed by : [facility], [address] [place] [address] Blood specimen (specimen) 06/06/2018 9:24 AM CDT 06/06/2018 9:26 AM CDT Narrative [facility] - 06/06/2018 9:30 AM CDT us Narcisa Kilgore PRACTICE BILLING ASSOCIATE LAB BLOOD ORDERABLES Pilar armas Result [facility] [place] [address] documented in this encounter Visit Diagnoses Diagnosis Osteopenia, unspecified location Acute myeloid leukemia in remission (HCC) Acute myeloid leukemia in remission documented in this encounter Additional Health Concerns Infection Onset Date 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
--- OUTSIDE RECORDS SUMMARY | 2024-11-22 13:09 | XMS_ITS | Encounter Summary ---
Author Organization [facility] Address [address] [place] [address] Phone Care Team Providers Care Investigations Consultant Name Role Phone Kirt Lindsay DO Primary Care Provider +1- [phone] Encounter Details Date Type Department Care Team (Late st Contact Info) Description 06/06/2018 10:00 AM CDT Office Visit [facility] Bone Marrow Transplant [address] [facility] 7th Floor, [place] [address] Narcisa Kilgore, ARMEN [address] DIV IM BONE MARROW TRANSPLANT, [address] [place] [address] 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); AML (acute myeloid leukemia) in remission (CMS/HCC); Oaybr-ppqcsn-gihk disease (CMS/HCC); H/O allogeneic bone marrow transplant (CMS/HCC) Social History Tobacco Use Types Packs/Day Years Used Date Smoking Tobacco: Every Day Smokeless Tobacco: Never Sex and Gender Information Value Date Recorded Sex Assigned at Not on file 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 DEPARTMENT OF MEDICINE - SECTION OF BMT & LEUKEMIA [address] [place], [place] [id number]- PHONE: FAX: PATIENT NAME: BRI JONES : 1965 ROSY: 06/06/2018 The patient has a history of AML. 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 TREATMENT HISTORY: 1. Induction with 7+3 and HiDAC consolidation x3. 2. Decitabine maintenance on the CALGB 01742 protocol. 3. Relapsed disease, status post [facility]. 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 [...] BJ Glucose 217(H) 70 - 199 mg/dL [facility] Comment: Interpretive Data Fasting glucose [...] CDT 07/28/2018 10:45 AM CDT Narrative [facility] - 07/28/2018 11:18 AM CDT Narcisa Kilgore TOOLING MANAGER LAB BLOOD ORDERABLES Pilar l Result Performing Organization Address City/[facility]/ZIP Co de Phone Number [facility] Department [place] [address] * (ABNORMAL) Lactate dehydrogenase (LD) (07/28/2018 10:17 AM CDT) Lactate dehydrogenase (LDH) 324(H) 100 - 250 Units/L [facility] Blood specimen (specimen) 07/28/2018 10:17 AM CDT 07/28/2018 10:45 AM CDT Narrative [facility] - 07/28/2018 11:18 AM CDT Narcisa Kilgore TOOLING MANAGER LAB BLOOD ORDERABLES Pilar l Result Performing Organization Address City/[facility] Co de Phone Number [facility] Department [place] [address] * (ABNORMAL) CBC with auto differential (07/28/2018 10:15 AM CDT) WBC 8.3 3.8 - 9.8 K/cumm [facility] Comment:Testing performed by : [facility], [address] [place] [phone] Hgb 13.1(L) 13.8 - 17.2 g/dL [facility] Comment:Testing performed by : [facility], [address] [place] [phone] Hct 37.6(L) 40.7 - 50.3 % [facility] Comment:Testing performed by : [facility], [address] [place] [phone] Plt 212 140 - 440 K/cumm [facility] Comment:Testing performed by : [facility], [address] [place], [place] [phone] MPV 7.8 6.8 - 10.4 fL [facility] Comment:Testing performed by : [facility], [address] [place] [address] RBC 3.56(L) 4.50 - 5.70 M/cumm [facility] Comment:Testing performed by : [place] [address] MCV 105.7(H) 80.0 - 97.6 fL [facility] Comment:Testing performed by : [facility], [address] [place] [address] MCH 36.8(H) 26.7 - 33.7 pg [facility] Comment:Testing performed by : [facility], [address] [place] [address] MCHC 34.8 32.7 - 35.5 g/dL [facility] Comment:Testing performed by : [facility], [address] [place] [address] RDW CV 13.4 11.8 - 14.6 % [facility] Comment:Testing performed by : [facility], [address] [place] [address] NRBC abs 0.00 0.00 - 0.01 K/cumm [facility] Comment:Testing performed by : [facility], [address] [place] [address] Blood specimen (specimen) 07/28/2018 10:15 AM CDT 07/28/2018 10:15 AM CDT Narrative [facility] - 07/28/2018 10:24 AM CDT us Narcisa Kilgore NP LAB BLOOD ORDERABLES Pilar armas Result [facility] [place] [address] * (ABNORMAL) Lactate dehydrogenase (LD) (06/06/2018 9:25 AM CDT) Lactate dehydrogenase (LDH) 296(H) 100 - 250 Units/L [facility] Blood specimen (specimen) 06/06/2018 9:25 AM CDT 06/06/2018 9:33 AM CDT Narrative [facility] - 06/06/2018 10:02 AM CDT Narcisa Kilgore TOOLING MANAGER LAB BLOOD ORDERABLES Pilar pawel Result [facility] Department [place] [address] * (ABNORMAL) CBC with auto differential (06/06/2018 9:24 AM CDT) [facility] WBC 10.0(H) 3.8 - 9.8 K/cumm [facility] Comment:Testing performed by : [address] Hgb 14.2 13.8 - 17.2 g/dL [facility] Comment:Testing performed by : [address] [address] Hct 41.7 40.7 - 50.3 % [facility] Comment:Testing performed by : [address] Plt 215 140 - 440 K/cumm [facility] Comment:Testing performed by : [address] MPV 7.1 6.8 - 10.4 fL [facility] Comment:Testing performed by : [place] [phone] RBC 3.84(L) 4.50 - 5.70 M/cumm [facility] Comment:Testing performed by : [place] [phone] MCV 108.5(H) 80.0 - 97.6 fL [facility] Comment:Testing performed by : [place] [phone] MCH 37.0(H) 26.7 - 33.7 pg [facility] Comment:Testing performed by : [facility], [address] [place] [phone] MCHC 34.1 32.7 - 35.5 g/dL [facility] Comment:Testing performed by : [facility], [address] [place] [phone] RDW CV 14.9(H) 11.8 - 14.6 % [facility] Comment:Testing performed by : [facility], [address] [place] [phone] NRBC abs 0.02(H) 0.00 - 0.01 K/cumm [facility] Comment:Testing performed by : [facility], [address] [place] [phone] Blood specimen (specimen) 06/06/2018 9:24 AM CDT 06/06/2018 9:26 AM CDT Narrative [facility] - 06/06/2018 9:30 AM CDT Narcisa Kilgore NP LAB BLOOD ORDERABLES Pilar l Result [facility] Department [place] [address] documented in this encounter Visit Diagnoses Diagnosis Acute myeloid leukemia in remission (HCC)- Primary Acute myeloid leukemia in remission AML (acute myeloid leukemia) in remission (HCC) Wnejw-khbdli-cdzs disease (HCC) H/O allogeneic bone marrow transplant (HCC) Osteopenia, unspecified location Acute myeloid leukemia in remission (HCC) Acute myeloid leukemia in remission Acute myeloid leukemia in remission (HCC) 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 (HCC) Vlgep-cuqhrf-jrlp disease (HCC) AML (acute myeloid leukemia) in [...] of insulin ([facility]) USE DIRECTED. 08/31/2015 06/06/2018 documented as of [...] documented as of this encounter Care Teams Investigations Consultant Relationship Specialty Start Date End Date Kirt Lindsay DO PCP - General 05/02/17 11/22/20 documented as of this encounter
--- OUTSIDE RECORDS SUMMARY | 2024-11-22 13:09 | XMS_ITS | Encounter Summary ---
Author Organization [facility] Address [address] [place] [address] Phone Care Team Providers Care Sorting Supervisor Name Role Phone Kirt Lindsay DO Primary Care Provider [phone]- [phone] Encounter Details Date Type Department Care Team (Late st Contact Info) Description 06/09/2018 Orders Only 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 Reorder 06/09/2018 06/09/2018 documented as of this encounter Additional Health Concerns Infection Onset Date Last Indicated Resolved Time VRE Comment:Backloaded September 06, 2011 11/26/2010 11/26/201006/18 5:00 AM CDT documented as of this encounter Care Teams Sorting Supervisor Relationship Specialty Start Date End Date Kirt Lindsay DO PCP - General 05/02/17 11/22/20 documented as of this encounter
--- OUTSIDE RECORDS SUMMARY | 2024-11-22 13:09 | XMS_ITS | Encounter Summary ---
Author Organization [facility] Address [address] [place] [address] Phone Care Team Providers Care Rock Crusher Name Role Phone Kirt Lindsay DO Primary Care Provider [phone]- [phone] Encounter Details Date Type Department Care Team (Late st Contact Info) Description 04/17/2018 Orders Only [facility] Bone Marrow Transplant [address] [facility] Medicine 7th Floor, [place] [address] Justine Jones RN 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) Social History Tobacco Use Types Packs/Day Years Used Date Smoking Tobacco: Every Day Sex and Gender Information Value Date Recorded Sex Assigned at Not on file 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
--- OUTSIDE RECORDS SUMMARY | 2024-11-22 13:09 | XMS_ITS | Encounter Summary ---
Author Organization [facility] Address [address] [facility] [address] [place] [address] Phone Care Team Providers Care Ski Molder Name Role Phone Kirt Lindsay DO Primary Care Provider [phone]- [phone] Josué Del Valle MD PhD Unavailable [phone] Halie Khan MD Primary Care Provider [phone] Kirt Lindsay DO Primary Care Provider +- [phone] Tay Charlton MD Unavailable [phone] Halie Khan MD Unavailable [phone] StarksAnt golmdan MD Unavailable [phone]- [phone] Dillon Calreed Dorado DO Unavailable [phone] Halie Khan MD Unavailable [phone] iWlfred Kinsey MD Unavailable Encounter Details Date Type Department Care Team (Latest Contact Info) Description 12/30/2017 Orders Only [facility] CONVERSION Scanning, Provider Social History Tobacco Use Types Packs/Day Years Used Date Smoking Tobacco: Every Day Sex and Gender Information Value Date Recorded Sex Assigned at Not on file Legal 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 Gender Identity Not on file Sexual Orientation Not on file documented as of this encounter Plan of Treatment Not on file documented as of this encounter Procedures Procedure Name Priority Date/Time Associated Diagnosis Comments PULMONARY FUNCTION TEST (PFT) 12/30/2017 1:11 PM 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 documented in this encounter Results * PULMONARY FUNCTION TEST (PFT) (12/30/2017 1:11 PM 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) Anatomical Region Laterality Modality PFT us Provider [...] documented as of this encounter Care Teams Ski Molder Relationship Specialty Start Date End Date Kirt Lindsay DO PCP - General 05/02/17 11/22/20 Halie Khan MD [address] [place] [address] PCP - General Critical Care Med 11/23/20 02/01/21 Kirt Lindsay DO PCP - General Internal Medicine 02/02/21 Josué Del Valle MD PhD Medical Oncologist/Plant Operator Medical Oncology 08/26/19 Tay Charlton MD [address] [place] [address] Consulting Physician Gastroenterology 12/03/21 06/11/23 Halie Khan MD [address] [place] [address] Consulting Physician Pulmonary Disease 12/12/21 3 Ant Starks MD [address] [place] [address] Consulting Physician Transplant Hepatology 01/12/22 Cal Carranza DO [address] [address] Spray Drier Internal Medicine 06/12/23 Halie Khan MD [address] [facility] [address] [place] [address] Chute Tapper Critical Care Med 06/12/23 Wilfred Kinsey MD [address] [address] Consulting Physician Gastroenterology 03/02/24 documented as of this encounter
--- OUTSIDE RECORDS SUMMARY | 2024-11-22 13:09 | XMS_ITS | Encounter Summary ---
Author Organization [facility] Address [address] [place] [address] Phone Care Team Providers Care Cork Molder Name Role Phone Kirt Lindsay DO Primary Care Provider [phone]- [phone] Encounter Details Date Type Department Care Team (Late st Contact Info) Description 06/13/2018 Orders Only [facility] Bone Marrow Transplant [address] [facility] 7th Floor, [place] [address] Josué Del Valle MD PhD [address] DIV IM BONE MARROW TRANSPLANT, [address] [place], [place] [id number] 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) Social History Tobacco Use Types Packs/Day Years Used Date Smoking Tobacco: Every Day Smokeless Tobacco: Never Sex and Gender Information Value Date Recorded Sex Assigned at Not on file Legal 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
--- OUTSIDE RECORDS SUMMARY | 2024-11-22 13:09 | XMS_ITS | Encounter Summary ---
Author Organization [facility] Address [address] [place] [address] Care Team Providers Care Fitness Trainer Name Role Phone Kirt Lindsay DO Primary Care Provider [phone]- [phone] Encounter Details Date Type Department Care Team (Latest Contact Info) Description 12/27/2017 10:50 AM FINANCIAL COMPLIANCE EXAMINER - 12/27/2017 11:59 PM [facility] Hospital Encounter [facility] [phone] Christopher Del Valle MD PhD [address] IM BONE MARROW TRANSPLANT[address] [place] [address] Discharge Disposition: Discharge to home or self care Social History Tobacco Use Types Packs/Day Years Used Date Smoking Tobacco: Every Day Sex and Gender Information Value Date Recorded Sex Assigned at Not on file Legal Sex Male 10:48 AM FINANCIAL COMPLIANCE EXAMINER Gender Identity Not on file Sexual [...] current use of insulin ([facility]) Take 1 tablet by mouth daily. 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 FINAL REPORT The radiology attending physician has personally reviewed this study, and has reviewed and/or edited this written report and agrees with it. ACC# ??Date Time ??Exam [id number] Dec 27, 2017 11:18:[address] Chest without contrast EXAMINATION: ??CT of the chest without intravenous contrast HISTORY:Pneumonia, vjldv-mokklo-pzhg disease, AML TECHNIQUE: Transaxial computed tomographic images [...] REDDING M.D. on Dec 27 2017 ??3:04P [id number] LEMUS M.D. FINAL REPORT The radiology attending physician has personally reviewed this study, and has reviewed and/or edited this written report and agrees with it. Attending: ??ADEOLA, ??CHRISTOPHER Requesting: ??ADEOLA, ??CHRISTOPHER Requesting Fax: ?? Attending Fax: ?? Attending ID: ??[id number] Requesting ID: ??[id number] Report To 1 ID: ??[id number] ? Report To 1 Name: ??, ?? Report To 1 FAX: ?? NextGen Order #: ?? Procedure Note Miscellaneous, Not In File - 12/27/2017 Toño LEMUS M.D. FINAL REPORT The radiology attending physician has personally reviewed this study, and has reviewed and/or edited this written report and agrees with it. [facility]# Date Time Exam [id number] Dec 27, 2017 11:18:[address] Chest without contrast EXAMINATION: CT of the chest without intravenous contrast HISTORY:Pneumonia, svjak-qftuvf-nxwk disease, AML TECHNIQUE: Transaxial computed tomographic images [...] REDDING M.D. on Dec 27 2017 3:04P [id number] LEMUS M.D. FINAL REPORT The radiology attending physician has personally reviewed this study, and has reviewed and/or edited this written report and agrees with it. 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
--- OUTSIDE RECORDS SUMMARY | 2024-11-22 13:09 | XMS_ITS | Encounter Summary ---
Author Organization [facility] Address [address] [place] [address] Phone Care Team Providers Care Safety Leader Name Role Phone Kirt Lindsay DO Primary Care Provider +1- [phone] Encounter Details Date Type Department Care Team (Latest Contact Info) Description 06/22/2018 Orders Only [facility] Scanning, Provider Social History Tobacco Use Types Packs/Day Years Used Date Smoking Tobacco: Every Day Smokeless Tobacco: Never Sex and Gender Information Value Date Recorded Sex Assigned at Not on file Legal 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
--- OUTSIDE RECORDS SUMMARY | 2024-11-22 13:11 | XMS_ITS | Encounter Summary ---
Author Organization [facility] Facility Care Team Providers Care Personal Protection Specialist Name Role Phone Unavailable Primary Care Provider Unavailabl e Encounter Details Date Type Department Care Team (Late st Contact Info) Description 04/03/2013 Hospital Encounter [facility] Narcisa Kohler, ARMEN [address] DIV IM BONE MARROW TRANSPLANT, [place] [address] Disease of respiratory system; Pulmonary collapse; Acute myeloid leukemia (HCC) Social History Tobacco Use Types Packs/Day Years Used Date Smoking Tobacco: Never Assessed Sex and Gender Information Value Date Recorded Sex Assigned at Not on file 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 [facility] ? Department of Laboratories ?[facility] [id number] ?BJ ?Outpatient ?Physician Patient Name: ? BRI JONES Rec Number: ?? [id number] Date of : ?1965 Gender/Age: ? Male [...] following: Rhinovirus/Enterovirus ORDER COMMENTS (1)Testing performed by: [place]. [address]. ? VIROLOGY ? PROCEDURE: Respiratory Pathogen Multiplex PCR ?SOURCE: Nasopharyngeal COLLECTED: 04/03/13 ??1845 ? BODY SITE: STARTED: 04/03/13 ??1922 FREE TEXT SOURCE: * * * ??Interpretive Results ??* * * (1)The [employer] (formerly known as [employer]) FilmArray Respiratory Panel (RP) assay is a [...] FilmArray RP assay is FDA cleared for LANDSCAPE ARCHITECTURE TEACHER swabs. ??Additional sample types have been validated according to CLIA regulations. ??The performance characteristics of this assay have been determined by [facility].Current interpretive data was last revised on 2012. us Historical Provider LAB BLOOD ORDERABLES Pilar pawel Result HISTORICAL RESULTS * Respiratory Pathogen Multiplex PCR (04/03/2013 6:45 PM CDT) Nasopharyngeal (Unknown) 04/03/2013 6:45 PM CDT 04/03/2013 7:23 PM CDT Impressions HISTORICAL RESULTS - 04/03/2013 8:45 PM CDT The [employer] (formerly known as [employer]) FilmArray Respiratory Panel (RP) assay is a [...] FilmArray RP assay is FDA cleared for LANDSCAPE ARCHITECTURE TEACHER swabs. ??Additional sample types have been validated according to CLIA regulations. ??The performance characteristics of this assay have been determined by [facility]. Current interpretive data [...] agrees with it. ACC# ??Date Time ??Exam [id number] April 03, 2013 14:54:00 95907 Chest 2 views Frontl & Lat EXAMINATION: [...] Provider, Shmuel, - 04/25/2017 ALEM VELA M.D. RAEGNA MANRIQUE, FINAL REPORT The radiology attending physician has personally reviewed this study, and has reviewed and/or edited this written report and agrees with it. ACC# Date Time Exam [id number] April 03, 2013 14:54:00 14674 Chest 2 views Frontl & Lat EXAMINATION: [...] RESULTS - 04/03/2013 9:26 PM CDT ? [facility] ?[facility] ?[place], [place] [address] ? Patient Name: ??BRI JONES ? Med Rec Number: [id number] ? Fin Number: ?[id number] ? Date: ?1965 ? Sex/Age: ? Male 47 years ? Admit Date: ?04/03/2013 ? Discharge Date: 04/03/2013 ? Doctor: ?Jame , Narcisa L ? Facility: ?[facility] ? Location: ?[facility] ?* Abnormal ??A Alert [...] ? ORDER COMMENTS ? (1)Testing performed by: [facility], ? [place]. [address]. ?* * * ??Interpretive Results ??* * * ? (1)The [employer] (formerly known as [employer]) ? FilmArray Respiratory Panel (RP) assay is [...] FilmArray RP assay is FDA cleared for LANDSCAPE ARCHITECTURE TEACHER ? swabs. ??Additional sample types have been validated according to ? CLIA regulations. ??The performance characteristics of this assay ? have been determined by [facility] ? Lab.Current interpretive data [...]
--- OUTSIDE RECORDS SUMMARY | 2024-11-22 13:11 | XMS_ITS | Encounter Summary ---
Author Organization [facility] Facility Care Team Providers Care Application Support Consultant Name Role Phone Unavailable Primary Care Provider Unavailabl e Encounter Details Date Type Department Care Team (Late st Contact Info) Description 07/15/2013 - 07/15/2013 11:59 PM CDT Hospital Encounter [facility] Christopher Armenta MD PhD [address] DIV BONE MARROW TRANSPLANT, [address] [place] [id number] Fitting and adjustment of other device; Acute myeloid leukemia (HCC) Social History Tobacco Use Types Packs/Day Years Used Date Smoking Tobacco: Never Assessed Sex and Gender Information Value Date Recorded Sex Assigned at Not on file Legal Sex Male 10:48 AM BACK STAYER Gender Identity Not on file Sexual Orientation [...] agrees with it. ACC# ??Date Time ??Exam [id number] Jul 15, 2013 14:35:00 23746 Ret VenaCava Filter wImg EXAMINATION: ?INFERIOR VENA [...] was obtained. Prior to beginning the procedure, [place] Protocol was performed to confirm the patient's [...] agrees with it. ACC# Date Time Exam [id number] Jul 15, 2013 14:35:00 17534 Ret VenaCava Filter wImg EXAMINATION: INFERIOR VENA [...] was obtained. Prior to beginning the procedure, [place] Protocol was performed to confirm the patient's [...]
--- OUTSIDE RECORDS SUMMARY | 2024-11-22 13:11 | XMS_ITS | Encounter Summary ---
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 Comment: Interpretive Data Hyperthyroid: ??<0.1 mcIUnit/mL Hypothyroid: ??>12.0 mcIUnit/mL Current interpretive data was last revised on 01. Blood specimen (specimen) 02/04/2017 8:20 AM CDT 02/04/2017 9:21 AM CDT us Josué Del Valle MD PhD LAB BLOOD ORDERABLES Fin al Result Performing Organization Address City/State/[facility] Co in Phone Number [facility] Department [place] [address] documented in this encounter Visit Diagnoses Not on filedocumented in this encounter Additional Health Concerns Infection Onset Date Last Indicated Resolved Time VRE Comment:Backloaded September 06, 2011 11/26/2010 11/26/201006/18 5:00 AM CDT documented as of this encounter
--- OUTSIDE RECORDS SUMMARY | 2024-11-22 13:11 | XMS_ITS | Encounter Summary ---
Author Organization [facility] Healthcare Address [address] [place] [address] Care Team Providers Care Licensed Home Inspector Name Role Phone Unavailable Primary Care Provider Unavailabl e Encounter Details Date Type Department Care Team (Latest Contact Info) Description 09/05/2016 1:00 AM CDT - 02/04/2017 11:59 PM CDT Hospital Encounter [facility] INTERIM [phone] Josué Del Valle MD PhD [address] DIV IM BONE MARROW TRANSPLANT, [address] [place] [address] Discharge Disposition: Discharge to home or self care Social History Tobacco Use Types Packs/Day Years Used Date Smoking Tobacco: Never Assessed Sex and Gender Information Value Date Recorded Sex Assigned at Not on file 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
--- OUTSIDE RECORDS SUMMARY | 2024-11-22 13:11 | XMS_ITS | Encounter Summary ---
Author Organization [facility] Healthcare Address [address] [place] [address] Care Team Providers Care Electrician Deck Name Role Phone Unavailable Primary Care Provider Unavailabl e Encounter Details Date Type Department Care Team (Late st Contact Info) Description 02/04/2017 Orders Only [facility] Inter[facility] [phone] Josué Del Valle MD PhD [address] DIV IM BONE MARROW TRANSPLANT, [address] [place], [place] [id number] Social History Tobacco Use Types Packs/Day Years Used Date Smoking Tobacco: Never Assessed Sex and Gender Information Value Date Recorded Sex Assigned at Not on file Legal 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 ?? (Diabetes Care 31:2317-9968, 2008). ??The eAG is not equivalent to a fasting glucose. Blood specimen (specimen) 02/04/2017 8:20 AM CDT 02/04/2017 9:20 AM CDT us Josué Del Valle MD PhD LAB BLOOD ORDERABLES Arun tamiko Result - Final [facility] Department [place] [address] documented in this encounter Visit Diagnoses Not on filedocumented in this encounter Additional Health Concerns Infection Onset Date Last Indicated Resolved Time VRE Comment:Backloaded September 06, 2011 11/26/2010 11/26/201006/18 5:00 AM CDT documented as of this encounter
--- OUTSIDE RECORDS SUMMARY | 2024-11-22 13:11 | XMS_ITS | Encounter Summary ---
Author Organization [facility] Facility Care Team Providers Care Environmental Restoration Planner Name Role Phone Unavailable Primary Care Provider Unavailabl e Encounter Details Date Type Department Care Team (Late st Contact Info) Description 11/18/2012 - 11/17/2013 11:59 PM REWORKER Hospital Encounter [facility] Narcisa Kohler, ARMEN [address] DIV IM BONE MARROW TRANSPLANT, [address] [place] [id number] Acute myeloid leukemia (HCC) Social History Tobacco Use Types Packs/Day Years Used Date Smoking Tobacco: Never Assessed Sex and Gender Information Value Date Recorded Sex Assigned at Not on file Legal Sex Male 10:48 AM REWORKER Gender Identity Not on file Sexual Orientation [...] LABORATORY CUMULATIVE REPORT Routine 11/17/2013 12:00 AM REWORKER CYTOMEGALOVIRUS (CMV) PCR, CDR Routine 10/20/2013 2:33 PM REWORKER SERUM URIC ACID Routine 10/20/2013 2:33 PM REWORKER SERUM MAGNESIUM Routine 10/20/2013 2:33 PM REWORKER SERUM LACTATE DEHYDROGENASE (LDH) Routine 10/20/2013 2:33 PM REWORKER PLASMA COMPREHENSIVE METABOLIC PANEL Routine 10/20/2013 2:33 PM REWORKER CRITICAL RESULT CALL BACK Routine 10/20/2013 2:33 PM REWORKER BLOOD TACROLIMUS (FK-506) DRUG LEVEL Routine 10/20/2013 2:33 PM REWORKER BLOOD CELL COUNT Routine 10/20/2013 2:27 PM REWORKER ALL MICROBIOLOGY REPORT SECTION Routine 10/20/2013 12:00 AM REWORKER CYTOMEGALOVIRUS (CMV) PCR, CDR Routine 09/21/2013 4:45 PM REWORKER SERUM URIC ACID Routine 09/21/2013 4:45 PM REWORKER SERUM MAGNESIUM Routine 09/21/2013 4:45 PM REWORKER SERUM LACTATE DEHYDROGENASE (LDH) Routine 09/21/2013 4:45 PM REWORKER PLASMA COMPREHENSIVE METABOLIC PANEL Routine 09/21/2013 4:45 PM REWORKER BLOOD TACROLIMUS (FK-506) DRUG LEVEL Routine 09/21/2013 4:45 PM REWORKER BLOOD CELL COUNT Routine 09/21/2013 4:45 PM REWORKER ALL MICROBIOLOGY REPORT SECTION Routine 09/21/2013 12:00 AM REWORKER BLOOD CELL COUNT Routine 08/12/2013 10:5 3 [...] (FK-506) DRUG LEVEL Routine 12/26/2012 11:18 AM REWORKER CYTOMEGALOVIRUS (CMV) PCR, CDR Routine 12/26/2012 10:55 AM REWORKER SERUM TESTOSTERONE Routine 12/26/2012 10 :55 AM REWORKER SERUM PROSTATE-SPECIFIC ANTIGEN (PSA) Routine 12/26/2012 10:55 AM REWORKER SERUM LACTATE DEHYDROGENASE (LDH) Routine 12/26/2012 10:55 AM REWORKER SERUM HUMAN IMMUNODEFICIENCY VIRUS (HIV) 1, 2 AB Routine 12/26/2012 10:55 AM REWORKER PLASMA COMPREHENSIVE METABOLIC PANEL Routine 12/26/2012 10:55 AM REWORKER BLOOD CELL COUNT Routine 12/26/2012 10:5 4 AM REWORKER ALL MICROBIOLOGY REPORT SECTION Routine 12/26/2012 12:00 AM REWORKER documented in this encounter Results * Discharge Laboratory Cumulative Report (11/17/2013 12:00 AM REWORKER) 11/17/2013 Narrative HISTORICAL RESULTS - 10/21/2013 11:25 AM REWORKER ?[facility] ?Department of Laboratories ? [address] [facility] [address] ?[place] [address] Patient Name: ?BRI JONES Epifanio Rec Number: ??[id number] Fin Number: ?[id number] Date: ?1965 Sex/Age: ? Male 47 years Admit Date: ?11/18/2012 Discharge Date: ??11/17/2013 Doctor: ?Josué Del Valle Facility: ?[facility] Location: ?BCC Chart Printed: ?? 10/21/2013 [...] copies/ml) ORDER COMMENTS (1)Testing performed by: [facility], [place], [place]. ??[address]. ? VIROLOGY ? PROCEDURE: Cytomegalovirus PCR, Blood ?SOURCE: Blood COLLECTED: 10/20/13 ??1433 ? BODY SITE: STARTED: 10/20/13 ??1536 FREE TEXT SOURCE: * * * ??Interpretive Results ??* * * (1)This assay is based on quantitative real-time PCR. ??The primers used amplify a conserved 61 bp region of the DNA polymerase gene of human CMV. ??Based on data from the [facility], these primers do not amplify [...] developed and its performance characteristics determined by [facility]. ??It has not been cleared or approved by the U.S. Food and Drug Administration. ??Current interpretive data was last revised on 2009. us Historical Provider LAB BLOOD ORDERABLES Pilar pawel Result HISTORICAL RESULTS * Cytomegalovirus (CMV) PCR (10/20/2013 2:33 PM REWORKER) Blood specimen (specimen) (Unknown) 10/20/2013 2:33 PM REWORKER 10/20/2013 3:36 PM REWORKER Impressions HISTORICAL RESULTS - 10/21/2013 7:52 AM REWORKER This assay is based on quantitative real-time PCR. ??The primers used amplify a conserved 61 bp region of the DNA polymerase gene of human CMV. ??Based on data from the [facility], these primers do not amplify [...] developed and its performance characteristics determined by [facility]. ??It has not been cleared or approved by the U.S. Food and Drug Administration. ?? Current interpretive data was last revised on 2009. Narrative HISTORICAL RESULTS - 10/21/2013 7:52 AM REWORKER Negative (<200 copies/ml) Historical Provider MD LAB MICROBIOLOGY - GENERA L ORDERABLES Final Result Performing Organization Address City/[facility] Co de Phone Number HISTORICAL RESULTS * Blood tacrolimus (FK-506) drug level (10/20/2013 2:33 PM REWORKER) Tacrolimus 2.0 ng/ml HISTORICA L RESULTS Comment: Interpretive Data This test was developed using an analyte specific reagent. ??Its performance characteristics were determined by the [facility] in a manner consistent with CLIA requirements. This test has not been cleared or approved by the U.S. Food and Drug Administration. Current interpretive data was last revised on 2012. Blood specimen (specimen) 10/20/2013 2:33 PM REWORKER Josué Del Valle MD PhD LAB BLOOD ORDERABLES Fin al Result HISTORICAL RESULTS * (ABNORMAL) Plasma comprehensive metabolic panel (10/20/2013 2:33 PM REWORKER) Sodium 133(L) 135 - 145 mmol/L HISTORICAL [...] Units/L HISTORICAL RESULTS Plasma 10/20/2013 2:33 PM REWORKER Josué Del Valle MD PhD LAB BLOOD ORDERABLES Fin al Result Performing Organization Address [facility] Co de Phone Number HISTORICAL RESULTS * (ABNORMAL) Serum lactate dehydrogenase (LDH) (10/20/2013 2:33 PM REWORKER) Lactate dehydrogenase (LDH) 265(H) 100 - 250 Units/L HISTORICAL RESULTS Serum 10/20/2013 2:33 PM REWORKER Josué Del Valle MD PhD LAB BLOOD ORDERABLES Fin al Result Performing Organization Address [facility] Co de Phone Number HISTORICAL RESULTS * Serum uric acid (10/20/2013 2:33 PM REWORKER) Uric acid 5.1 3.0 - 8.0 mg/dl HISTORICAL RESULTS Serum 10/20/2013 2:33 PM REWORKER Josué Del Valle MD PhD LAB BLOOD ORDERABLES Fin al Result HISTORICAL RESULTS * Critical result call back (10/20/2013 2:33 PM REWORKER) Date notified 10/20/2013 HISTO RICAL RESULTS Time notified 1523 HISTOR ICAL RESULTS Test name glucose HISTORICAL RESULTS Called to Kari Geller HISTORICAL RESULTS Credentials RN HISTORIC AL RESULTS Called by MPW HISTORICAL RESULTS No specimen 10/20/2013 2:33 PM REWORKER Josué Del Valle MD PhD LAB BLOOD ORDERABLES Fin al Result Performing Organization Address [facility] de Phone Number HISTORICAL RESULTS * Serum magnesium (10/20/2013 2:33 PM REWORKER) Magnesium 1.7 1.4 - 2.5 mg/dl HISTORICAL RESULTS Serum 10/20/2013 2:33 PM REWORKER Josué Del Valle MD PhD LAB BLOOD ORDERABLES Fin al Result Performing Organization Address [facility] de Phone Number HISTORICAL RESULTS * (ABNORMAL) Blood cell count [CBC] panel, 7 CAM (10/20/2013 2:27 PM REWORKER) WBC 12.8(H) 3.8 - 9.8 K/cumm HISTORICAL [...] RESULTS Blood specimen (specimen) 10/20/2013 2:27 PM REWORKER us Josué Del Valle MD PhD LAB BLOOD ORDERABLES Fin al Result HISTORICAL RESULTS * All Microbiology Report Section (10/20/2013 12:00 AM REWORKER) 10/20/2013 Narrative HISTORICAL RESULTS - 10/21/2013 11:32 AM REWORKER ? [facility] ?[address] [facility] [address] ?[place], [place] [address] ? Patient Name: ??BRI JONES ? Med Rec Number: [id number] ? Fin Number: ?[id number] ? Date: ?1965 ? Sex/Age: ? Male 47 years ? Admit Date: ?11/18/2012 ? Discharge Date: 11/17/2013 ? Doctor: ?Jousé Del Valle ? Facility: ?[facility] ? Location: ?BCC ?* Abnormal ??A [...] ORDER COMMENTS ? (1)Testing performed by: [facility], ? [place]. ??[address]. ?* * * ??Interpretive Results ??* * * ? (1)This assay is based on quantitative real-time PCR. ??The primers ? used amplify a conserved 61 bp region of the DNA polymerase gene ? of human CMV. ??Based on data from the [facility] ? [facility], these primers do not [...] its performance characteristics determined by . ? [facility]. ??It has not been cleared ? or approved by the U.S. Food and Drug Administration. ??Current ? interpretive data was last revised on 2009. ? us Historical Provider LAB MICROBIOLOGY - GENERA L ORDERABLES Final Result HISTORICAL RESULTS * Cytomegalovirus (CMV) PCR (09/21/2013 4:45 PM REWORKER) Blood specimen (specimen) (Unknown) 09/21/2013 4:45 PM REWORKER 09/21/2013 6:19 PM REWORKER Impressions HISTORICAL RESULTS - 09/22/2013 7:13 AM REWORKER This assay is based on quantitative real-time PCR. ??The primers used amplify a conserved 61 bp region of the DNA polymerase gene of human CMV. ??Based on data from the [facility], these primers do not amplify [...] developed and its performance characteristics determined by [facility]. ??It has not been cleared or approved by the U.S. Food and Drug Administration. ?? Current interpretive data was last revised on 2009. Narrative HISTORICAL RESULTS - 09/22/2013 7:13 AM REWORKER Negative (<200 copies/ml) Historical Provider LAB MICROBIOLOGY - GENERA L ORDERABLES Final Result Performing Organization Address [facility] Co de Phone Number HISTORICAL RESULTS * Blood tacrolimus (FK-506) drug level (09/21/2013 4:45 PM REWORKER) Tacrolimus <1.0 ng/ml HISTORICA L RESULTS Comment: Undetectable. ??Please verify that the correct immunosuppressant test was requested. Interpretive Data This test was developed using an analyte specific reagent. ??Its performance characteristics were determined by the [facility] in a manner consistent with CLIA requirements. This test has not been cleared or approved by the U.S. Food and Drug Administration. Current interpretive data was last revised on 2012. Blood specimen (specimen) 09/21/2013 4:45 PM REWORKER Josué Del Valle MD PhD LAB BLOOD ORDERABLES Fin al Result Performing Organization Address City/[facility] Co de Phone Number HISTORICAL RESULTS * (ABNORMAL) Plasma comprehensive metabolic panel (09/21/2013 4:45 PM REWORKER) Sodium 139 135 - 145 mmol/L HISTORICAL [...] Units/L HISTORICAL RESULTS Plasma 09/21/2013 4:45 PM REWORKER Josué Del Valle MD PhD LAB BLOOD ORDERABLES Fin al Result HISTORICAL RESULTS * Serum lactate dehydrogenase (LDH) (09/21/2013 4:45 PM REWORKER) Lactate dehydrogenase (LDH) 200 100 - 250 Units/L HISTORICAL RESULTS Serum 09/21/2013 4:45 PM REWORKER Josué Del Valle MD PhD LAB BLOOD ORDERABLES Fin al Result HISTORICAL RESULTS * Serum uric acid (09/21/2013 4:45 PM REWORKER) Uric acid 4.5 3.0 - 8.0 mg/dl HISTORICAL RESULTS Serum 09/21/2013 4:45 PM REWORKER Josué Del Valle MD PhD LAB BLOOD ORDERABLES Fin al Result HISTORICAL RESULTS * Serum magnesium (09/21/2013 4:45 PM REWORKER) Magnesium 1.8 1.4 - 2.5 mg/dl HISTORICAL RESULTS Serum 09/21/2013 4:45 PM REWORKER Josué Del Valle MD PhD LAB BLOOD ORDERABLES Fin al Result HISTORICAL RESULTS * (ABNORMAL) Blood cell count [CBC] panel, 7 CAM (09/21/2013 4:45 PM REWORKER) WBC 12.6(H) 3.8 - 9.8 K/cumm HISTORICAL [...] RESULTS Blood specimen (specimen) 09/21/2013 4:45 PM REWORKER us Josué Del Valle MD PhD LAB BLOOD ORDERABLES Fin al Result HISTORICAL RESULTS * All Microbiology Report Section (09/21/2013 12:00 AM REWORKER) 09/21/2013 Narrative HISTORICAL RESULTS - 10/21/2013 11:32 AM REWORKER ? [facility] ?[address] [facility] [address] ?[place], [place] [address] ? Patient Name: ??BRI JONES ? Med Rec Number: [id number] ? Fin Number: ?[id number] ? Date: ?1965 ? Sex/Age: ? Male 47 years ? Admit Date: ?11/18/2012 ? Discharge Date: 11/17/2013 ? Doctor: ?Josué Del Valle ? Facility: ?[facility] ? Location: ?BCC ?* Abnormal ??A [...] ORDER COMMENTS ? (1)Testing performed by: [facility], ? [place]. ??[address]. ?* * * ??Interpretive Results ??* * * ? (1)This assay is based on quantitative real-time PCR. ??The primers ? used amplify a conserved 61 bp region of the DNA polymerase gene ? of human CMV. ??Based on data from the [facility] ? [facility], these primers do not [...] its performance characteristics determined by [facility]. ? [facility]. ??It has not been [...] (specimen) 08/12/2013 10:53 AM CDT Josué Del Valle MD PhD [...] human CMV. ??Based on data from the [facility], these primers do not amplify [...] developed and its performance characteristics determined by [facility]. ??It has not been cleared or approved by the U.S. Food and Drug Administration. ?? Current interpretive data was last revised on 2009. Narrative HISTORICAL RESULTS - 08/13/2013 8:09 AM CDT Negative (<200 copies/ml) Historical Provider MD LAB MICROBIOLOGY - GENERA L ORDERABLES Final Result Performing Organization Address City/[facility] Co de Phone Number HISTORICAL RESULTS * Blood tacrolimus (FK-506) drug level (08/12/2013 10:50 AM CDT) Tacrolimus 1.6 ng/ml HISTORICA L RESULTS Comment: Interpretive Data This test was developed using an analyte specific reagent. ??Its performance characteristics were determined by the [facility] in a manner consistent with CLIA requirements. This test has not been cleared or approved by the U.S. Food and Drug Administration. Current interpretive data was last revised on 2012. Blood specimen (specimen) 08/12/2013 10:50 AM CDT Josué Del aVlle MD PhD LAB BLOOD ORDERABLES Fin al Result Performing Organization Address City/State/[facility] Co de Phone Number HISTORICAL [...] Organization Address [facility] de Phone Number HISTORICAL RESULTS * Serum lactate dehydrogenase (LDH) (08/12/2013 10:50 AM CDT) Lactate dehydrogenase (LDH) 221 100 - 250 Units/L HISTORICAL RESULTS Serum 08/12/2013 10:5 0 AM CDT Josué Del Valle MD PhD LAB BLOOD ORDERABLES Fin al Result Performing Organization Address [facility] de Phone Number HISTORICAL RESULTS * Serum uric acid (08/12/2013 10:50 AM CDT) Uric acid 4.4 3.0 - 8.0 mg/dl HISTORICAL RESULTS Serum 08/12/2013 10:5 0 AM CDT Josué Del Valle MD PhD LAB BLOOD ORDERABLES Fin al Result Performing Organization Address [facility] de Phone Number HISTORICAL RESULTS * Serum magnesium (08/12/2013 10:50 AM CDT) Magnesium 1.8 1.4 - 2.5 mg/dl HISTORICAL RESULTS Serum 08/12/2013 10:5 0 AM CDT Josué Del Valle MD PhD LAB BLOOD ORDERABLES Fin al Result HISTORICAL RESULTS * All Microbiology Report Section (08/12/2013 12:00 AM CDT) 08/12/2013 Narrative HISTORICAL RESULTS - 09/22/2013 10:58 AM REWORKER ? [facility] ?[address] [facility] [address] ?[place], [place] [address] ? Patient Name: ??JONES BRI Denton ? Med Rec Number: [id number] ? Fin Number: ?[id number] ? Date: ?1965 ? Sex/Age: ? Male 47 years ? Admit Date: ?11/18/2012 ? Discharge Date: 11/17/2013 ? Doctor: ?Josué Del Valle ? Facility: ?[facility] ? Location: ?BCC ?* Abnormal ??A [...] ? ORDER COMMENTS ? (1)Testing performed by: [facility], ? [place]. ??[address]. ?* * * ??Interpretive Results ??* * * ? (1)This assay is based on quantitative real-time PCR. ??The primers ? used amplify a conserved 61 bp region of the DNA polymerase gene ? of human CMV. ??Based on data from the [facility], these primers [...] its performance characteristics determined by . ? [facility]. ??It has not been cleared ? or approved by the U.S. Food and Drug Administration. ??Current ? interpretive data was last revised on 2009. ? Historical Provider LAB MICROBIOLOGY - GENERA L ORDERABLES Final Result Performing Organization Address [facility] de Phone Number HISTORICAL RESULTS * [...] copy of the Tool Book at [email or web address] Current Interpretive Data was last revised 2012. Plasma 07/15/2013 11:2 8 AM CDT Josué Del Valle MD PhD LAB BLOOD ORDERABLES Fin al Result Performing Organization Address [facility] de Phone Number HISTORICAL RESULTS * [...] human CMV. ??Based on data from the [facility], these primers do not amplify [...] developed and its performance characteristics determined by [facility]. ??It has not been [...] ??Its performance characteristics were determined by the [facility] in a manner consistent with CLIA requirements. This test has not been cleared or approved by the U.S. Food and Drug Administration. Current interpretive data was last revised on 2012. Blood specimen (specimen) 07/06/2013 10:14 AM CDT Josué Del Valle MD PhD LAB BLOOD ORDERABLES Fin al Result Performing Organization Address [facility] de Phone Number HISTORICAL RESULTS * [...] al Result Performing Organization Address City/[facility]/ZIP Co de Phone Number HISTORICAL RESULTS * Serum lactate dehydrogenase (LDH) (07/06/2013 10:14 AM CDT) Lactate dehydrogenase (LDH) 213 100 - 250 Units/L HISTORICAL RESULTS Serum 07/06/2013 10:1 4 AM CDT Josué Del Valle MD PhD LAB BLOOD ORDERABLES Fin al Result Performing Organization Address City/[facility] de Phone Number HISTORICAL RESULTS * Serum uric acid (07/06/2013 10:14 AM CDT) Uric acid 4.1 3.0 - 8.0 mg/dl HISTORICAL RESULTS Serum 07/06/2013 10:1 4 AM CDT Josué Del Valle MD PhD LAB BLOOD ORDERABLES Fin al Result Performing Organization Address [facility] de Phone Number HISTORICAL RESULTS * Serum magnesium (07/06/2013 10:14 AM CDT) Magnesium 1.7 1.4 - 2.5 mg/dl HISTORICAL RESULTS Serum 07/06/2013 10:1 4 AM CDT Josué Del Valle MD PhD LAB BLOOD ORDERABLES Fin al Result Performing Organization Address [facility] de Phone Number HISTORICAL RESULTS * [...] RESULTS - 08/13/2013 12:04 PM CDT ? [facility] ?[address] [facility] [address] [facility] [address] ? Patient Name: ??BRI JONES ? Med Rec Number: [id number] ? Fin Number: ?[id number] ? Date: ?1965 ? Sex/Age: ? Male 47 years ? Admit Date: ?11/18/2012 ? Discharge Date: 11/17/2013 ? Doctor: ?Jessica, Josué F ? Facility: ?[facility] ? Location: ?BCC ?* Abnormal ??A [...] ? ORDER COMMENTS ? (1)Testing performed by: [facility], ? [place]. ??[address]. ?* * * ??Interpretive Results ??* * * ? (1)This assay is based on quantitative real-time PCR. ??The primers ? used amplify a conserved 61 bp region of the DNA polymerase gene ? of human CMV. ??Based on data from the [facility], these primers [...] characteristics determined by . ? [facility]. ??It has not been [...] human CMV. ??Based on data from the [facility], these primers do not amplify [...] developed and its performance characteristics determined by [facility]. ??It has not been cleared or approved by the U.S. Food and Drug Administration. ?? Current interpretive data was last revised on 2009. Narrative HISTORICAL RESULTS - 05/26/2013 6:38 AM CDT Negative (<200 copies/ml) us Historical Provider LAB MICROBIOLOGY - GENERA L ORDERABLES Final Result HISTORICAL RESULTS * Blood tacrolimus (FK-506) drug level (05/25/2013 10:23 AM CDT) Pathologist [facility] Tacrolimus 2.4 ng/ml HISTORICA L RESULTS Comment: Interpretive Data This test was developed using an analyte specific reagent. ??Its performance characteristics were determined by the [facility] in a manner consistent [...] panel (05/25/2013 10:23 AM CDT) Pathologist [facility] Sodium 136 135 - 145 mmol/L HISTORICAL [...] al Result Performing Organization Address City/[facility]/ZIP Co de Phone Number HISTORICAL RESULTS * (ABNORMAL) Serum lactate dehydrogenase (LDH) (05/25/2013 10:23 AM CDT) Lactate dehydrogenase (LDH) 274(H) 100 - 250 Units/L HISTORICAL RESULTS Serum 05/25/2013 10:2 3 AM CDT Josué Del Valle MD PhD LAB BLOOD ORDERABLES Fin al Result Performing Organization Address [facility] de Phone Number HISTORICAL RESULTS * Serum uric acid (05/25/2013 10:23 AM CDT) Pathologist [facility] Uric acid 5.5 3.0 - 8.0 mg/dl HISTORICAL RESULTS Serum 05/25/2013 10:2 3 AM CDT Josué Del Valle MD PhD LAB BLOOD ORDERABLES Fin al Result Performing Organization Address [facility] de Phone Number HISTORICAL RESULTS * Serum magnesium (05/25/2013 10:23 AM CDT) Pathologist [facility] Magnesium 1.6 1.4 - 2.5 mg/dl HISTORICAL RESULTS Serum 05/25/2013 10:2 3 AM CDT Josué Del Valle MD PhD LAB BLOOD ORDERABLES Fin al Result Performing Organization Address [facility] Phone Number HISTORICAL RESULTS * All Microbiology Report Section (05/25/2013 12:00 AM CDT) 05/25/2013 Narrative HISTORICAL RESULTS - 07/08/2013 11:24 AM CDT ? [facility] ?[address] [facility] [address] ?[place], [place] [address] ? Patient Name: ??BRI JONES ? Med Rec Number: [id number] ? Fin Number: ?[id number] ? Date: ?1965 ? Sex/Age: ? Male 47 years ? Admit Date: ?11/18/2012 ? Discharge Date: 11/17/2013 ? Doctor: ?DiPersio, Josué F ? Facility: ?[facility] ? Location: ?BCC ?* Abnormal ??A [...] ? ORDER COMMENTS ? (1)Testing performed by: [facility], ? [place]. ??[address]. ?* * * ??Interpretive Results ??* * * ? (1)This assay is based on quantitative real-time PCR. ??The primers ? used amplify a conserved 61 bp region of the DNA polymerase gene ? of human CMV. ??Based on data from the [facility], these primers [...] its performance characteristics determined by . ? [facility]. ??It has not been [...] human CMV. ??Based on data from the [facility] Laboratory, these primers do not amplify [...] developed and its performance characteristics determined by [facility]. ??It has not been [...] ??Its performance characteristics were determined by the [facility] in a manner consistent with CLIA requirements. This test has not been cleared or approved by the U.S. Food and Drug Administration. Current interpretive data was last revised on 2012. Blood specimen (specimen) 04/03/2013 1:05 PM CDT Josué Del Valle MD PhD LAB BLOOD ORDERABLES Fin al Result Performing Organization Address [facility] Co de Phone Number HISTORICAL [...] al Result Performing Organization Address City/[facility]/ZIP Co de Phone Number HISTORICAL RESULTS * Serum lactate dehydrogenase (LDH) (04/03/2013 1:05 PM CDT) Lactate dehydrogenase (LDH) 232 100 - 250 Units/L HISTORICAL RESULTS Serum 04/03/2013 1:05 PM CDT Josué Del Valle MD PhD LAB BLOOD ORDERABLES Fin al Result Performing Organization Address [facility] de Phone Number HISTORICAL RESULTS * Serum uric acid (04/03/2013 1:05 PM CDT) Pathologist [facility] [place] Uric acid 6.0 3.0 - 8.0 mg/dl HISTORICAL RESULTS Serum 04/03/2013 1:05 PM CDT Josué Del Valle MD PhD LAB BLOOD ORDERABLES Fin al Result Performing Organization Address [facility] Phone Number HISTORICAL RESULTS * Serum magnesium (04/03/2013 1:05 PM CDT) Pathologist [facility] [place] Magnesium 1.7 1.4 - 2.5 mg/dl HISTORICAL RESULTS Serum 04/03/2013 1:05 PM CDT Result [facility] Josué Del Valle MD PhD LAB BLOOD ORDERABLES Fin al Result Performing Organization Address [facility] Phone Number HISTORICAL RESULTS * (ABNORMAL) Blood hemoglobin A1C (04/03/2013 1:05 PM CDT) Pathologist [facility] [place] Hgb A1C 6.6(H) 4.0 - 6.0 % HISTORICAL RESULTS Estimated average glucose 143 mg/dl HISTORICAL RESULTS Comment: The ADA recommends reporting an estimated Average Glucose (eAG) with all Hemoglobin A1c results using the equation derived from a study of 507 normal and diabetic adults. ??Minority populations were underrepresented and children were not included. ??(Diabetes Care 31:4913-6149, 2008). ??The eAG is not equivalent to [...] RESULTS - 05/26/2013 11:09 AM CDT ? [facility] ?[facility] [address] [place] [address] ? Patient Name: ??BRI JONES ? Med Rec Number: [id number] ? Fin Number: ?[id number] ? Date: ?1965 ? Sex/Age: ? Male 47 years ? Admit Date: ?11/18/2012 ? Discharge Date: 11/17/2013 ? Doctor: ?Josué Del Valle F ? Facility: ?[facility] ? Location: ?BCC ?* Abnormal ??A [...] ? ORDER COMMENTS ? (1)Testing performed by: [facility], [place], ? [place]. ??[address]. ?* * * ??Interpretive Results ??* * * ? (1)This assay is based on quantitative real-time PCR. ??The primers ? used amplify a conserved 61 bp region of the DNA polymerase gene ? of human CMV. ??Based on data from the [facility], these primers [...] performance characteristics determined by ? [facility]. ??It has not been cleared ? or approved by the U.S. Food and Drug Administration. ??Current ? interpretive data was last revised on 2009. ? us Historical Provider LAB MICROBIOLOGY - GENERA L ORDERABLES Final Result HISTORICAL RESULTS * Blood tacrolimus (FK-506) drug level (03/20/2013 1:03 PM CDT) Pathologist [facility] [place] Tacrolimus 2.2 ng/ml HISTORICA L RESULTS Comment: Interpretive Data This test was developed using an analyte specific reagent. ??Its performance characteristics were determined by the [facility] in a manner consistent [...] CAM (03/20/2013 1:03 PM CDT) Pathologist [facility] [place] WBC 12.1(H) 3.8 - 9.8 K/cumm HISTORICAL [...] human CMV. ??Based on data from the [facility], these primers do not amplify [...] developed and its performance characteristics determined by [facility]. ??It has not been [...] Organization Address [facility] de Phone Number HISTORICAL RESULTS * Serum lactate dehydrogenase (LDH) (03/20/2013 1:02 PM CDT) Lactate dehydrogenase (LDH) 242 100 - 250 Units/L HISTORICAL RESULTS Serum 03/20/2013 1:02 PM CDT us Josué Del Valle MD PhD LAB BLOOD ORDERABLES Fin al Result Performing Organization Address [facility] de Phone Number HISTORICAL RESULTS * All Microbiology Report Section (03/20/2013 12:00 AM CDT) 03/20/2013 Narrative HISTORICAL RESULTS - 05/26/2013 11:09 AM CDT ? [facility] ?[facility] [place] ?[place], [place] [address] ? Patient Name: ??BRI JONES ? Med Rec Number: [id number] ? Fin Number: ?[id number] ? Date: ?1965 ? Sex/Age: ? Male 47 years ? Admit Date: ?11/18/2012 ? Discharge Date: 11/17/2013 ? Doctor: ?Josué Del Valle ? Facility: ?[facility] ? Location: ?BCC ?* Abnormal ??A [...] ? ORDER COMMENTS ? (1)Testing performed by: [facility], [place], ? [place]. ??[address]. ?* * * ??Interpretive Results ??* * * ? (1)This assay is based on quantitative real-time PCR. ??The primers ? used amplify a conserved 61 bp region of the DNA polymerase gene ? of human CMV. ??Based on data from the [facility], these primers [...] its performance characteristics determined by . ? [facility]. ??It has not been [...] human CMV. ??Based on data from the [facility], these primers do not amplify [...] developed and its performance characteristics determined by [facility]. ??It has not been [...] ??Its performance characteristics were determined by the [facility] in a manner consistent [...] al Result Performing Organization Address City/[facility]/ZIP Co de Phone Number HISTORICAL RESULTS * [...] Organization Address [facility] de Phone Number HISTORICAL RESULTS * (ABNORMAL) Serum magnesium (02/27/2013 1:54 PM CDT) Magnesium 1.3(L) 1.4 - 2.5 mg/dl HISTORICAL RESULTS Serum 02/27/2013 1:54 PM CDT Josué Del Valle MD PhD LAB BLOOD ORDERABLES Fin al Result Performing Organization Address [facility] Phone Number HISTORICAL RESULTS * Blood morphology screen (02/27/2013 1:52 PM CDT) Morphology scrn Original results obtained required verification by peripheral smear HISTORICAL RESULTS Blood specimen (specimen) 02/27/2013 1:52 PM CDT Josué Del Valle MD PhD LAB BLOOD ORDERABLES Fin al Result Performing Organization Address [facility] Phone Number HISTORICAL RESULTS * (ABNORMAL) [...] RESULTS - 05/26/2013 11:09 AM CDT ? [facility] ?[facility] [place] ?[place] [address] ? Patient Name: ??BRI JONES ? Med Rec Number: [id number] ? Fin Number: ?[id number] ? Date: ?1965 ? Sex/Age: ? Male 47 years ? Admit Date: ?11/18/2012 ? Discharge Date: 11/17/2013 ? Doctor: ?DiPersio, Josué F ? Facility: ?[facility] ? Location: ?BCC ?* Abnormal ??A [...] ? ORDER COMMENTS ? (1)Testing performed by: [facility], ? [place]. ??[address]. ?* * * ??Interpretive Results ??* * * ? (1)This assay is based on quantitative real-time PCR. ??The primers ? used amplify a conserved 61 bp region of the DNA polymerase gene ? of human CMV. ??Based on data from the [facility], these primers [...] its performance characteristics determined by . ? [facility]. ??It has not been cleared ? or approved by the U.S. Food and Drug Administration. ??Current ? interpretive data was last revised on 2009. ? Historical Provider LAB MICROBIOLOGY - GENERA L ORDERABLES Final Result Performing Organization Address [facility] de Phone Number HISTORICAL RESULTS * Blood tacrolimus (FK-506) drug level (12/26/2012 11:18 AM REWORKER) Tacrolimus 3.3 ng/ml HISTORICA L RESULTS Comment: Interpretive Data This test was developed using an analyte specific reagent. ??Its performance characteristics were determined by the [facility] in a manner consistent with CLIA requirements. This test has not been cleared or approved by the U.S. Food and Drug Administration. Current interpretive data was last revised on 2012. Blood specimen (specimen) 12/26/2012 11:18 AM REWORKER Josué Del Valle MD PhD LAB BLOOD ORDERABLES Fin al Result HISTORICAL RESULTS * Cytomegalovirus (CMV) PCR (12/26/2012 10:55 AM REWORKER) Blood specimen (specimen) (Unknown) 12/26/2012 10:55 AM REWORKER 12/26/2012 11:57 AM REWORKER Impressions HISTORICAL RESULTS - 12/27/2012 6:07 AM REWORKER This assay is based on quantitative real-time PCR. ??The primers used amplify a conserved 61 bp region of the DNA polymerase gene of human CMV. ??Based on data from the [facility], these primers do not amplify [...] developed and its performance characteristics determined by [facility]. ??It has not been cleared or approved by the U.S. Food and Drug Administration. ?? Current interpretive data was last revised on 2009. Narrative HISTORICAL RESULTS - 12/27/2012 6:07 AM REWORKER Negative (<200 copies/ml) Historical Provider MD LAB MICROBIOLOGY - GENERA L ORDERABLES Final Result HISTORICAL RESULTS * (ABNORMAL) Plasma comprehensive metabolic panel (12/26/2012 10:55 AM REWORKER) Sodium 141 135 - 145 mmol/L HISTORICAL [...] HISTORICAL RESULTS Plasma 12/26/2012 10:5 5 AM REWORKER Josué Del Valle MD PhD LAB BLOOD ORDERABLES Fin al Result HISTORICAL RESULTS * (ABNORMAL) Serum lactate dehydrogenase (LDH) (12/26/2012 10:55 AM REWORKER) Lactate dehydrogenase (LDH) 273(H) 100 - 250 Units/L HISTORICAL RESULTS Serum 12/26/2012 10:5 5 AM REWORKER Josué Del Valle MD PhD LAB BLOOD ORDERABLES Fin al Result Performing Organization Address [facility] de Phone Number HISTORICAL RESULTS * Serum prostate-specific antigen (PSA) (12/26/2012 10:55 AM REWORKER) PSA 0.7 0.0 - 4.0 ng/ml HISTORICAL RESULTS Serum 12/26/2012 10:5 5 AM REWORKER Josué Del Valle MD PhD LAB BLOOD ORDERABLES Fin al Result Performing Organization Address [facility] de Phone Number HISTORICAL RESULTS * (ABNORMAL) Serum testosterone (12/26/2012 10:55 AM REWORKER) Testosterone 215(L) 241 - 827 ng/dl HISTORICAL RESULTS Comment: Interpretive Data Male: ? 241 - 827 ng/dL Female: ??Age 15-75 yrs: ?? 14 - 76 ng/dL Current interpretive data was last revised on 03. Serum 12/26/2012 10:5 5 AM REWORKER us Josué Del Valle MD PhD LAB BLOOD ORDERABLES Fin al Result Performing Organization Address [facility] de Phone Number HISTORICAL RESULTS * Serum Human Immunodeficiency virus (HIV) 1, 2 ab (12/26/2012 10:55 AM REWORKER) HIV ab Negative NEG HISTORICAL RESULTS Serum 12/26/2012 10:5 5 AM REWORKER Josué Del Valle MD PhD LAB BLOOD ORDERABLES Fin al Result Performing Organization Address [facility] de Phone Number HISTORICAL RESULTS * (ABNORMAL) Blood cell count [CBC] panel, 7 CAM (12/26/2012 10:54 AM REWORKER) WBC 17.0(H) 3.8 - 9.8 K/cumm HISTORICAL [...] RESULTS Blood specimen (specimen) 12/26/2012 10:54 AM REWORKER us Josué Del Valle MD PhD LAB BLOOD ORDERABLES Fin al Result HISTORICAL RESULTS * All Microbiology Report Section (12/26/2012 12:00 AM REWORKER) 12/26/2012 Narrative HISTORICAL RESULTS - 05/26/2013 11:09 AM CDT ? [facility] ?[facility] [place] [address] ? Patient Name: ??KAMRON, BRI Denton ? Med Rec Number: [id number] ? Fin Number: ?[id number] ? Date: ?1965 ? Sex/Age: ? Male 47 years ? Admit Date: ?11/18/2012 ? Discharge Date: 11/17/2013 ? Doctor: ?Jessica, Josué F ? Facility: ?[facility] [place] [facility] ? Location: ?BCC ?* Abnormal ??A [...] ? ORDER COMMENTS ? (1)Testing performed by: [facility], [place], ? [place]. ??[address]. ?* * * ??Interpretive Results ??* * * ? (1)This assay is based on quantitative real-time PCR. ??The primers ? used amplify a conserved 61 bp region of the DNA polymerase gene ? of human CMV. ??Based on data from the [facility], these primers [...] its performance characteristics determined by . ? [facility]. ??It has not been [...]
--- OUTSIDE RECORDS SUMMARY | 2024-11-22 13:11 | XMS_ITS | Encounter Summary ---
Author Organization [facility] Healthcare Address [address] [place] [address] Care Team Providers Care Specialty Plant Supervisor Name Role Phone Unavailable Primary Care Provider Unavailabl e Encounter Details Date Type Department Care Team (Late st Contact Info) Description 02/04/2017 Orders Only [facility] Interim [phone] Josué Del Valle MD PhD [address] DIV IM BONE MARROW TRANSPLANT, [address] [place], [place] [id number] Social History Tobacco Use Types Packs/Day Years Used Date Smoking Tobacco: Never Assessed Sex and Gender Information Value Date Recorded Sex Assigned at Not on file 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 >240 mg/dL Literature Reference: National Cholesterol Education Program (NCEP) Expert Panel on Detection, Evaluation, and Treatment of High Blood Cholesterol in Adults (Adult Treatment Panel III). ??Circulation 2004; 110:227. Current interpretive data was last revised on 2005. Triglycerides 183(H) 0 - 150 mg/dL [facility] Comment: Interpretive Data Desirable: ? < 150 mg/dL Borderline High: ? 150 - 199 mg/dL High: ?> 200 mg/dL Literature Reference: See Cholesterol Current interpretive data was last revised on 07. HDL 51 40 - 199 mg/dL [facility] Comment: Interpretive Data Less than 40 mg/dL - low; A major risk factor for heart disease. Greater than or equal to 60 mg/dL - High; ??considered protective of heart disease. Literature Reference: See Cholesterol Current interpretive data was last revised on 2008. LDL, calculated 86 0 - 129 mg/dL [facility] Comment: Interpretive Data Optimal: ? < 100 mg/dL Near Optimal: ?100 - 129 mg/dL Borderline High: ?? 130 - 159 mg/dL High: ?> 160 mg/dL Literature Reference: See Cholesterol Current interpretive data was last revised on 07. Non-HDL Cholesterol 122 mg/dL [facility] Comment: Interpretive Data When triglycerides are [...] tamiko Result - Final 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
--- OUTSIDE RECORDS SUMMARY | 2024-11-22 13:11 | XMS_ITS | Encounter Summary ---
Author Organization [facility] Healthcare Address [address] [place] [address] Care Team Providers Care Folding Machine Setter Name Role Phone Unavailable Primary Care Provider Unavailabl e Encounter Details Date Type Department Care Team (Late st Contact Info) Description 02/04/2017 Orders Only [facility] Inter[facility] [phone] Josué Del Valle MD PhD [address] DIV IM BONE MARROW TRANSPLANT, [address] [place], [place] [id number] Social History Tobacco Use Types Packs/Day Years Used Date Smoking Tobacco: Never Assessed Sex and Gender Information Value Date Recorded Sex Assigned at Not on file 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 Gender Identity Not on file Sexual Orientation Not on file documented as of this encounter Plan of Treatment Not on file documented as of this encounter Procedures Procedure Name Priority Date/Time Associated Diagnosis Comments CBC WITH AUTO DIFFERENTIAL Routine Gen Lab 02/04/2017 8:26 AM CDT documented in this encounter Results * (ABNORMAL) CBC with auto differential (02/04/2017 8:26 AM CDT) Pathologist [facility] WBC 8.0 3.8 - 9.8 K/cumm [facility] RBC 4.58 4.50 - 5.70 M/cumm [facility] Hgb 16.1 13.8 - 17.2 g/dL [facility] Hct 47.9 40.7 - 50.3 % [facility] Mean Cellular Volume - CAM 104.4(H) 80.0 - 97.6 fL [facility] Mean Cellular Hemoglobin - CAM 35.2(H) 26.7 - 33.7 pg [facility] Mean Cellular Hemoglobin Concentration - CAM 33.7 32.7 - 35.5 g/dL [facility] Rdw 14.7(H) 11.8 - 14.6 % [facility] Plt 265 140 - 440 K/cumm [facility] Mean Platelet Volume - CAM 7.8 6.8 - 10.4 fL [facility] Neutrophil pct 48.1 38.7 - 74.5 % [facility] Lymphocyte pct 32.7 20.0 - 54.3 % [facility] Monos 10.1 4.3 - 13.5 % [facility] Eosinophil pct 7.8(H) 0.0 - 6.0 % [facility] Basophil pct 1.3 0.0 - 3.0 % [facility] Neutrophil abs 3.9 1.8 - 6.6 K/cumm [facility] Lymphocyte abs 2.6 1.2 - 3.3 K/cumm [facility] Monocyte abs 0.8 0.2 - 1.2 K/cumm [facility] Eosinophils, abs 0.6(H) 0.0 - 0.5 K/cumm [facility] Basophil abs 0.1 0.0 - 0.2 K/cumm [facility] Blood specimen (specimen) 02/04/2017 8:26 AM CDT 02/04/2017 8:30 AM CDT us Josué Del Valle MD PhD LAB BLOOD ORDERABLES Fin al Result [facility] Department [place] [address] documented in this encounter Visit Diagnoses Not on filedocumented in this encounter 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
--- OUTSIDE RECORDS SUMMARY | 2024-11-22 13:11 | XMS_ITS | Encounter Summary ---
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) Social History Tobacco Use Types Packs/Day Years Used Date Smoking Tobacco: Never Assessed Sex and Gender Information Value Date Recorded Sex Assigned at Not on file 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 Gender Identity Not on file Sexual [...] COMPREHENSIVE METABOLIC PANEL Routine 12/14/2016 1:55 PM PARTY PLAN SALESPERSON BLOOD HEMOGLOBIN A1C Routine 12/14/2016 7:55 AM PARTY PLAN SALESPERSON BLOOD CELL COUNT Routine 10/31/2016 9:23 AM PARTY PLAN SALESPERSON SERUM LACTATE DEHYDROGENASE (LDH) Routine 10/31/2016 9:15 AM PARTY PLAN SALESPERSON SERUM IRON PROFILE Routine 10/31/2016 9: 15 AM PARTY PLAN SALESPERSON SERUM FERRITIN Routine 10/31/2016 9:15 AM PARTY PLAN SALESPERSON PLASMA COMPREHENSIVE METABOLIC PANEL Routine 10/31/2016 9:15 AM PARTY PLAN SALESPERSON SERUM 25-HYDROXYCHOLECALCIFE ROL (VITAMIN D) Routine 10/31/2016 9:13 AM PARTY PLAN SALESPERSON BLOOD HEMOGLOBIN A1C Routine 10/31/2016 9:13 AM PARTY PLAN SALESPERSON DISCHARGE LABORATORY CUMULATIVE REPORT 09/05/2016 documented in this encounter Results * (ABNORMAL) Plasma comprehensive metabolic panel (12/14/2016 1:55 PM PARTY PLAN SALESPERSON) Sodium 139 135 - 145 mmol/L CDR [...] CDR HISTORICAL RESULTS Plasma 12/14/2016 1:55 PM PARTY PLAN SALESPERSON Eneida Gibson MD LAB BLOOD ORDERABLES Final Resul t CDR HISTORICAL RESULTS * (ABNORMAL) Blood hemoglobin A1C (12/14/2016 7:55 AM PARTY PLAN SALESPERSON) Hgb A1C 7.3(H) 4.0 - 6.0 % CDR HISTORICAL RESULTS Estimated average glucose 163 mg/dl CDR HISTORIC AL RESULTS Comment: The ADA recommends reporting an estimated Average Glucose (eAG) with all Hemoglobin A1c results using the equation derived from a study of 507 normal and diabetic adults. ??Minority populations were underrepresented and children were not included. ??(Diabetes Care 31:1462-2209, 2008). ??The eAG is not equivalent to a fasting glucose. Blood specimen (specimen) 12/14/2016 7:55 AM PARTY PLAN SALESPERSON Narrative CDR HISTORICAL RESULTS - 12/18/2016 4:12 AM PARTY PLAN SALESPERSON Comment Deleted us Eneida Gibson MD LAB BLOOD ORDERABLES Final Resul t CDR HISTORICAL RESULTS * (ABNORMAL) Blood cell count [CBC] panel, 7 CAM (10/31/2016 9:23 AM PARTY PLAN SALESPERSON) Pathologist [facility] WBC 13.6(H) 3.8 - 9.8 K/cumm CDR [...] RESULTS Blood specimen (specimen) 10/31/2016 9:23 AM PARTY PLAN SALESPERSON Josué Del Valle MD PhD LAB BLOOD ORDERABLES Fin al Result CDR HISTORICAL RESULTS * Serum iron profile (10/31/2016 9:15 AM PARTY PLAN SALESPERSON) Iron 122 50 - 150 mcg/dl CDR HISTORICAL RESULTS Comment:{Hemolyzed; result m ay be falsely elevated.} UIBC See Comment 112 - 347 mcg/dl CDR HISTORICAL RESULTS Comment:{CRDT; Hemolyzed Spe cimen} TIBC See Comment 250 - 400 mcg/dl CDR HISTORICAL RESULTS Comment:{CRDT; Hemolyzed Spe cimen} Transferrin saturation See Comment 20 - 50 % CDR HISTORICAL RESULTS Comment:{CRDT; Hemolyzed Spe cimen} Serum 10/31/2016 9:15 AM PARTY PLAN SALESPERSON Josué Del Valle MD PhD LAB BLOOD ORDERABLES Fin al Result Performing Organization Address [facility] Co de Phone Number CDR HISTORICAL RESULTS * Plasma comprehensive metabolic panel (10/31/2016 9:15 AM PARTY PLAN SALESPERSON) Pathologist [facility] Sodium 142 135 - 145 mmol/L CDR [...] CDR HISTORICAL RESULTS Plasma 10/31/2016 9:15 AM PARTY PLAN SALESPERSON Josué Del Valle MD PhD LAB BLOOD ORDERABLES Fin al Result Performing Organization Address [facility]/ZIP Co de Phone Number CDR HISTORICAL RESULTS * (ABNORMAL) Serum lactate dehydrogenase (LDH) (10/31/2016 9:15 AM PARTY PLAN SALESPERSON) Lactate dehydrogenase (LDH) 257(H) 100 - 250 Units/L CDR HISTORICAL RESULTS Serum 10/31/2016 9:15 AM PARTY PLAN SALESPERSON Result [facility] us Josué Del Valle MD PhD LAB BLOOD ORDERABLES Fin al Result Performing Organization Address [facility] de Phone Number CDR HISTORICAL RESULTS * (ABNORMAL) Serum ferritin (10/31/2016 9:15 AM PARTY PLAN SALESPERSON) Pathologist [facility] Ferritin 686(H) 30 - 400 ng/ml CDR HISTORICAL RESULTS Serum 10/31/2016 9:15 AM PARTY PLAN SALESPERSON Result [facility] us Josué Del Valle MD PhD LAB BLOOD ORDERABLES Fin al Result Performing Organization Address [facility] de Phone Number CDR HISTORICAL RESULTS * (ABNORMAL) Serum 25-hydroxycholecalciferol (vitamin D) (10/31/2016 9:13 AM PARTY PLAN SALESPERSON) Pathologist [facility] 25-OH Vit D 21(L) 30 - 100 ng/ml CDR HISTORICAL RESULTS Serum 10/31/2016 9:13 AM PARTY PLAN SALESPERSON Result [facility] us Josué Del Valle MD PhD LAB BLOOD ORDERABLES Fin al Result Performing Organization Address [facility] de Phone Number CDR HISTORICAL RESULTS * (ABNORMAL) Blood hemoglobin A1C (10/31/2016 9:13 AM PARTY PLAN SALESPERSON) Hgb A1C 9.1(H) 4.0 - 6.0 % CDR HISTORICAL RESULTS Estimated average glucose 214 mg/dl CDR HISTORIC AL RESULTS Comment: The ADA recommends reporting an estimated Average Glucose (eAG) with all Hemoglobin A1c results using the equation derived from a study of 507 normal and diabetic adults. ??Minority populations were underrepresented and children were not included. ??(Diabetes Care 31:3610-0683, 2008). ??The eAG is not equivalent to a fasting glucose. Blood specimen (specimen) 10/31/2016 9:13 AM PARTY PLAN SALESPERSON us Josué Del Valle MD PhD LAB [...]
--- OUTSIDE RECORDS SUMMARY | 2024-11-22 13:11 | XMS_ITS | Encounter Summary ---
Author Organization [facility] Facility Care Team Providers Care Grain Processor Name Role Phone Unavailable Primary Care Provider Unavailabl e Encounter Details Date Type Department Care Team (Late st Contact Info) Description 12/14/2013 - 11/17/2014 11:59 PM WREATH MACHINE TENDER Hospital Encounter [facility] Josué Armenta MD PhD [address] DIV IM BONE MARROW TRANSPLANT, [address] [address] Other chronic pain; Other thalassemia (CMS/HCC) (HCC) Social History Tobacco Use Types Packs/Day Years Used Date Smoking Tobacco: Never Assessed Sex and Gender Information Value Date Recorded Sex Assigned at Not on file Legal Sex Male 10:48 AM WREATH MACHINE TENDER Gender Identity Not on file [...] LABORATORY CUMULATIVE REPORT Routine 11/17/2014 12:00 AM WREATH MACHINE TENDER SERUM LACTATE DEHYDROGENASE (LDH) Routine 10/12/2014 12:32 PM WREATH MACHINE TENDER PLASMA COMPREHENSIVE METABOLIC PANEL Routine 10/12/2014 12:32 PM WREATH MACHINE TENDER BLOOD TACROLIMUS (FK-506) DRUG LEVEL Routine 10/12/2014 12:32 PM WREATH MACHINE TENDER BLOOD HEMOGLOBIN A1C Routine 10/12/2014 12:32 PM WREATH MACHINE TENDER BLOOD CELL COUNT Routine 10/12/2014 12:2 8 PM WREATH MACHINE TENDER BLOOD TACROLIMUS (FK-506) DRUG LEVEL Routine 09/08/2014 [...] LACTATE DEHYDROGENASE (LDH) Routine 12/14/2013 1:19 PM WREATH MACHINE TENDER PLASMA PROTHROMBIN TIME (PT) Routine 12/14/2013 1:19 PM WREATH MACHINE TENDER PLASMA COMPREHENSIVE METABOLIC PANEL Routine 12/14/2013 1:19 PM WREATH MACHINE TENDER BLOOD CELL COUNT Routine 12/14/2013 1:19 PM WREATH MACHINE TENDER documented in this encounter Results * Discharge Laboratory Cumulative Report (11/17/2014 12:00 AM WREATH MACHINE TENDER) 11/17/2014 Narrative HISTORICAL RESULTS - 10/13/2014 11:34 AM WREATH MACHINE TENDER ?[facility] ?Department of Laboratories ? [address] [facility] ?[place], [place] [address] Patient Name: ?BRI JONES Rec Number: ??[id number] Fin Number: ?[id number] Date: ?1965 Sex/Age: ? Male 48 years Admit Date: ?12/14/2013 Discharge Date: ??11/17/2014 Doctor: ?Josué Del Valle Facility: ?[facility] Location: ?BCC Chart Printed: ?? 10/13/2014 [...] ??Its performance characteristics were determined by the [facility] in a manner consistent with CLIA requirements. ??This test has not been cleared or approved by the U.S. Food and Drug Administration. Current interpretive data was last revised on 2012. Historical Provider MD LAB BLOOD ORDERABLES Pilar l Result Performing Organization Address City/[facility] Co de Phone Number HISTORICAL RESULTS * Blood tacrolimus (FK-506) drug level (10/12/2014 12:32 PM WREATH MACHINE TENDER) Pathologist [facility] Tacrolimus 2.1 ng/ml HISTORICA L RESULTS Comment: Interpretive Data This test was developed using an analyte specific reagent. ??Its performance characteristics were determined by the [facility] in a manner consistent with CLIA requirements. This test has not been cleared or approved by the U.S. Food and Drug Administration. Current interpretive data was last revised on 2012. Blood specimen (specimen) 10/12/2014 12:32 PM WREATH MACHINE TENDER Josué Del Valle MD PhD LAB BLOOD ORDERABLES Fin al Result Performing Organization Address [facility] Co de Phone Number HISTORICAL RESULTS * (ABNORMAL) Plasma comprehensive metabolic panel (10/12/2014 12:32 PM WREATH MACHINE TENDER) Pathologist [facility] Sodium 143 135 - 145 mmol/L HISTORICAL [...] HISTORICAL RESULTS Plasma 10/12/2014 12:3 2 PM WREATH MACHINE TENDER Josué Del Valle MD PhD LAB BLOOD ORDERABLES Fin al Result Performing Organization Address [facility] de Phone Number HISTORICAL RESULTS * (ABNORMAL) Serum lactate dehydrogenase (LDH) (10/12/2014 12:32 PM WREATH MACHINE TENDER) Lactate dehydrogenase (LDH) 314(H) 100 - 250 Units/L HISTORICAL RESULTS Serum 10/12/2014 12:3 2 PM WREATH MACHINE TENDER Josué Del Valle MD PhD LAB BLOOD ORDERABLES Fin al Result Performing Organization Address [facility] Phone Number HISTORICAL RESULTS * (ABNORMAL) Blood hemoglobin A1C (10/12/2014 12:32 PM WREATH MACHINE TENDER) Hgb A1C 8.5(H) 4.0 - 6.0 % HISTORICAL RESULTS Estimated average glucose 197 mg/dl HISTORICAL RESULTS Comment: The ADA recommends reporting an estimated Average Glucose (eAG) with all Hemoglobin A1c results using the equation derived from a study of 507 normal and diabetic adults. ??Minority populations were underrepresented and children were not included. ??(Diabetes Care 31:6865-3142, 2008). ??The eAG is not equivalent to a fasting glucose. Blood specimen (specimen) 10/12/2014 12:32 PM WREATH MACHINE TENDER Josué Del Valle MD PhD LAB BLOOD ORDERABLES Fin al Result Performing Organization Address [facility] de Phone Number HISTORICAL RESULTS * (ABNORMAL) Blood cell count [CBC] panel, 7 CAM (10/12/2014 12:28 PM WREATH MACHINE TENDER) WBC 18.2(H) 3.8 - 9.8 K/cumm HISTORICAL [...] RESULTS Blood specimen (specimen) 10/12/2014 12:28 PM WREATH MACHINE TENDER Josué Del Valle MD PhD LAB BLOOD ORDERABLES Fin al Result HISTORICAL RESULTS * Blood tacrolimus (FK-506) drug level (09/08/2014 1:03 PM CDT) [facility] Signature Tacrolimus 1.0 ng/ml HISTORICA L RESULTS Comment: Interpretive Data This test was developed using an analyte specific reagent. ??Its performance characteristics were determined by the [facility] in a manner consistent with CLIA [...] ORDERABLES Fin al Result Performing Organization Address [facility] Co de Phone Number HISTORICAL [...] ORDERABLES Fin al Result Performing Organization Address City/[facility] Co de Phone Number HISTORICAL [...] ORDERABLES Fin al Result Performing Organization Address City/[facility]/ZIP Co de Phone Number HISTORICAL RESULTS [...] ORDERABLES Fin al Result Performing Organization Address [facility] de Phone Number HISTORICAL RESULTS * (ABNORMAL) [...] ORDERABLES Fin al Result Performing Organization Address [facility] de Phone Number HISTORICAL RESULTS * (ABNORMAL) Serum lactate dehydrogenase (LDH) (08/17/2014 1:10 PM CDT) Pathologist [facility] Lactate dehydrogenase (LDH) 310(H) 100 - 250 Units/L HISTORICAL RESULTS Serum 08/17/2014 1:10 PM CDT Josué Del Valle MD PhD LAB BLOOD ORDERABLES Fin al Result Performing Organization Address [facility] de Phone Number HISTORICAL RESULTS * Blood tacrolimus (FK-506) drug level (05/11/2014 11:00 AM CDT) Tacrolimus <1.0 ng/ml HISTORICA L RESULTS Comment: Undetectable. ??Please verify that the correct immunosuppressant test was requested. Interpretive Data This test was developed using an analyte specific reagent. ??Its performance characteristics were determined by the [facility] in a manner consistent with CLIA [...] 7 CAM (03/17/2014 2:33 PM CDT) Pathologist [facility] WBC 10.2(H) 3.8 - 9.8 K/cumm HISTORICAL [...] ??Its performance characteristics were determined by the [facility] in a manner consistent with CLIA requirements. This test has not been cleared or approved by the U.S. Food and Drug Administration. Current interpretive data was last revised on 2012. Blood specimen (specimen) 03/17/2014 2:28 PM CDT Josué Del Valle MD PhD LAB BLOOD ORDERABLES Fin al Result Performing Organization Address City/[facility]/ZIP Co de Phone Number HISTORICAL RESULTS * Plasma comprehensive metabolic panel (03/17/2014 2:28 PM CDT) [facility] CO2 23 22 - 32 mmol/L HISTORICAL [...] ORDERABLES Fin al Result Performing Organization Address City/[facility]/ZIP Co de Phone Number HISTORICAL RESULTS * (ABNORMAL) Serum lactate dehydrogenase (LDH) (03/17/2014 2:28 PM CDT) Lactate dehydrogenase (LDH) 291(H) 100 - 250 Units/L HISTORICAL RESULTS Serum 03/17/2014 2:28 PM CDT Josué Del Valle MD PhD LAB BLOOD ORDERABLES Fin al Result Performing Organization Address [facility] de Phone Number HISTORICAL RESULTS * (ABNORMAL) Plasma comprehensive metabolic panel (12/14/2013 1:19 PM WREATH MACHINE TENDER) Sodium 138 135 - 145 mmol/L HISTORICAL [...] Units/L HISTORICAL RESULTS Plasma 12/14/2013 1:19 PM WREATH MACHINE TENDER Josué Del Valle MD PhD LAB BLOOD ORDERABLES Fin al Result Performing Organization Address [facility] de Phone Number HISTORICAL RESULTS * (ABNORMAL) Serum lactate dehydrogenase (LDH) (12/14/2013 1:19 PM WREATH MACHINE TENDER) Lactate dehydrogenase (LDH) 328(H) 100 - 250 Units/L HISTORICAL RESULTS Serum 12/14/2013 1:19 PM WREATH MACHINE TENDER Josué Del Valle MD PhD LAB BLOOD ORDERABLES Fin al Result Performing Organization Address [facility]/ZIP Ar de Phone Number HISTORICAL RESULTS * (ABNORMAL) Plasma prothrombin time (PT) (12/14/2013 1:19 PM WREATH MACHINE TENDER) Prothrombin time (PT) 9.3 9.0 - 12.0 [...] updated copy of the Tool Book at http://[facility]/bjc/pharmacy.nsf Current Interpretive Data was last revised 2012. Plasma 12/14/2013 1:19 PM WREATH MACHINE TENDER Josué Del Valle MD PhD LAB BLOOD ORDERABLES Fin al Result HISTORICAL RESULTS * (ABNORMAL) Blood cell count [CBC] panel, 7 CAM (12/14/2013 1:19 PM WREATH MACHINE TENDER) WBC 15.7(H) 3.8 - 9.8 K/cumm HISTORICAL [...] RESULTS Blood specimen (specimen) 12/14/2013 1:19 PM WREATH MACHINE TENDER us Josué Del Valle MD PhD LAB [...]
--- OUTSIDE RECORDS SUMMARY | 2024-11-22 13:11 | XMS_ITS | Encounter Summary ---
Author Organization [facility] Healthcare Address [address] [place] [address] Care Team Providers Care Wildlife Refuge Manager Name Role Phone Unavailable Primary Care Provider Unavailabl e Encounter Details Date Type Department Care Team (Late st Contact Info) Description 02/04/2017 Orders Only [facility] [phone] Josué Del Valle MD PhD [address] IM BONE MARROW TRANSPLANT, [address] [place], [place] [id number] Social History Tobacco Use Types Packs/Day Years Used Date Smoking Tobacco: Never Assessed Sex and Gender Information Value Date Recorded Sex Assigned at Not on file Legal Sex Male 10:48 AM CHANGE DIRECTOR Gender Identity Not on file Sexual [...] T3 3.6 2.0 - 4.4 pg/mL [facility] Blood specimen (specimen) 02/04/2017 8:20 AM CDT 02/04/2017 9:21 AM CDT us Josué Del Valle MD PhD LAB BLOOD ORDERABLES Fin al Result Performing Organization Address City/State/[facility] Co de Phone Number [facility] Department [place] [address] documented in this encounter Visit Diagnoses Not on filedocumented in this encounter Additional Health Concerns Infection Onset Date Last Indicated Resolved Time VRE Comment:Backloaded September 06, 2011 11/26/2010 11/26/201006/18 5:00 AM CDT documented as of this encounter
--- OUTSIDE RECORDS SUMMARY | 2024-11-22 13:11 | XMS_ITS | Encounter Summary ---
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 ([facility]/HCC) Social History Tobacco Use Types Packs/Day Years Used Date Smoking Tobacco: Never Assessed Sex and Gender Information Value Date Recorded Sex Assigned at Not on file Legal Sex Male 10:48 AM 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 Gender Identity Not on file Sexual [...] al Result Performing Organization Address [facility] de Phone Number CDR HISTORICAL RESULTS [...] ORDERABLES Fin al Result Performing Organization Address City/[facility] de Phone Number HISTORICAL RESULTS * Serum thyroid-stimulating hormone (TSH) (05/07/2016 11:42 AM CDT) TSH 0.88 0.30 - 4.20 mcIUnits/m l HISTORICAL RESULTS Comment: Interpretive Data Hyperthyroid: ??<0.1 mcIUnit/mL Hypothyroid: ??>12.0 mcIUnit/mL Current interpretive data was last revised on 01. Serum 05/07/2016 11:4 2 AM CDT Josué Del Valle MD PhD LAB BLOOD ORDERABLES Fin al Result Performing Organization Address [facility] de Phone Number HISTORICAL RESULTS * Serum triiodothyronine (T3), free (05/07/2016 11:42 AM CDT) Free T3 3.40 2.00 - 4.40 pg/ml HISTORICAL RESULTS Serum 05/07/2016 11:4 2 AM CDT Josué Del Valle MD PhD LAB BLOOD ORDERABLES Fin al Result Performing Organization Address [facility] de Phone Number HISTORICAL RESULTS * Serum thyroxine (T4), free (05/07/2016 11:42 AM CDT) Free T4 1.01 0.90 - 1.70 ng/dl HISTORICAL RESULTS Serum 05/07/2016 11:4 2 AM CDT Josué Del Valle MD PhD LAB BLOOD ORDERABLES Fin al Result Performing Organization Address City/[facility] de Phone Number HISTORICAL RESULTS * Serum testosterone, free (05/07/2016 11:42 AM CDT) Testosterone 329 240 - 950 ng/dl HISTORICAL RESULTS Comment: ADDITIONAL INFORMATION Testing performed by Liquid Chromatography-Tandem Mass Spectrometry (LC-MS/MS). Test Performed by: [place] [address] Kayak Maker: Neftaly Keita II, M.D., Ph.D. Testosterone, free [...] al Result Performing Organization Address [facility] de Phone Number HISTORICAL RESULTS * Serum lactate dehydrogenase (LDH) (05/07/2016 11:40 AM CDT) Lactate dehydrogenase (LDH) 207 100 - 250 Units/L HISTORICAL RESULTS Serum 05/07/2016 11:4 0 AM CDT Josué Del Valle MD PhD LAB BLOOD ORDERABLES Fin al Result Performing Organization Address [facility] de Phone Number HISTORICAL RESULTS * [...]
--- OUTSIDE RECORDS SUMMARY | 2024-11-22 13:11 | XMS_ITS | Encounter Summary ---
Author Organization [facility] Healthcare Address [address] [place] [address] Care Team Providers Care Fitter Welder Name Role Phone Unavailable Primary Care Provider Unavailabl e Encounter Details Date Type Department Care Team (Late st Contact Info) Description 02/04/2017 Orders Only [facility] [phone] Josué Del Valle MD PhD [address] IM BONE MARROW TRANSPLANT, [address] [place], [place] [id number] Social History Tobacco Use Types Packs/Day Years Used Date Smoking Tobacco: Never Assessed Sex and Gender Information Value Date Recorded Sex Assigned at Not on file Legal Sex Male 10:48 AM WELFARE VISITOR Gender Identity Not on file Sexual Orientation Not on file documented as of this encounter Plan of Treatment Not on file documented as of this encounter Procedures Procedure Name Priority Date/Time Associated Diagnosis Comments T4, FREE Routine Gen Lab 02/04/2017 8:20 AM CDT documented in this encounter Results * T4, free (02/04/2017 8:20 AM CDT) Free T4 1.16 0.90 - 1.70 ng/dL [facility] Blood specimen (specimen) 02/04/2017 8:20 AM CDT 02/04/2017 9:21 AM CDT us Josué Del Valle MD PhD LAB BLOOD ORDERABLES Arun tamiko Result - Final [facility] Department [place] [address] documented in this encounter Visit Diagnoses Not on filedocumented in this encounter Additional Health Concerns Infection Onset Date Last Indicated Resolved Time VRE Comment:Backloaded September 06, 2011 11/26/2010 11/26/201006/18 5:00 AM CDT documented as of this encounter
--- OUTSIDE RECORDS SUMMARY | 2024-11-22 13:11 | XMS_ITS | Encounter Summary ---
Author Organization [facility] Healthcare Address [address] [place] [address] Care Team Providers Care Microfiche Duplicator Name Role Phone Kirt Lindsay DO Primary Care Provider [phone] Encounter Details Date Type Department Care Team (Latest Contact Info) Description 11/23/2017 4:28 PM HARBOR PILOT - 12/13/2017 5:07 PM HARBOR PILOT Hospital Encounter [facility] AD[facility] [address] [place] [address] Sourav Callejas MD [id number] [facility] [address] [place] [address] Francis Park MD PhD [address] [facility] [address] [place] [address] Discharge Disposition: Discharge to home or self care Social History Tobacco Use Types Packs/Day Years Used Date Smoking Tobacco: Never Assessed Sex and Gender Information Value Date Recorded Sex Assigned at Not on file Legal Sex Male 10:48 AM HARBOR PILOT Gender Identity Not on file Sexual Orientation Not on file documented as of this encounter Last Filed Vital Signs Vital Sign Reading Time Taken Comments Blood Pressure 95/51 12/13/2017 4:40 PM HARBOR PILOT Pulse 67 12/13/2017 4:40 PM HARBOR PILOT Temperature - - Respiratory Rate - - Oxygen Saturation 93% 12/13/2017 4:40 PM HARBOR PILOT Inhaled Oxygen Concentration - - Weight 58 kg (127 lb 15.6 oz) 12/10/2017 8:33 PM HARBOR PILOT Height 177.8 cm (5' 10 ) 11/23/2017 4:50 PM HARBOR PILOT Body Mass Index 18.36 11/23/2017 4:50 PM HARBOR PILOT documented in this encounter Medications at Time [...] POC Routine Gen Lab 12/13/2017 1:56 PM HARBOR PILOT GLUCOSE POC Routine Gen Lab 12/13/2017 9:24 AM HARBOR PILOT MORPHOLOGY EXAM After X-Ray 12/13/2017 3:18 AM HARBOR PILOT TACROLIMUS LEVEL, TROUGH After X-Ray 018 3:18 AM HARBOR PILOT CBC WITHOUT DIFFERENTIAL After X-Ray 018 3:18 AM HARBOR PILOT PHOSPHORUS After X-Ray 12/13/2017 3:18 AM HARBOR PILOT MAGNESIUM After X-Ray 12/13/2017 3:18 AM HARBOR PILOT HEPATIC FUNCTION PANEL After X-Ray 8 3:18 AM HARBOR PILOT BASIC METABOLIC PANEL After X-Ray 12/13/2017 3:18 AM HARBOR PILOT DISCHARGE LABORATORY CUMULATIVE REPORT 12/13/2017 12:00 AM HARBOR PILOT GLUCOSE POC Routine Gen Lab 12/12/2017 8:36 PM HARBOR PILOT XR CHEST 1 VIEW Routine 12/12/2017 6:00 PM HARBOR PILOT US GUIDED THORACENTESIS Routine 12/12/19 18 5:43 PM HARBOR PILOT GLUCOSE POC Routine Gen Lab 12/12/2017 4:14 PM HARBOR PILOT GLUCOSE, BODY FLUID W/PROMPTS After X-Ray 12/12/2017 12:15 PM HARBOR PILOT FLUID REFERENCE RANGE After X-Ray 12/12/2017 12:15 PM HARBOR PILOT CYTOLOGY Routine 12/12/2017 12:15 PM HARBOR PILOT BODY FLUID CELL COUNT WITH DIFFERENTIAL After X-Ray 12/12/2017 12:15 PM HARBOR PILOT PROTEIN, BODY FLUID After X-Ray 12/12/2017 12:15 PM HARBOR PILOT LACTATE DEHYDROGENASE, BODY FLUID After X-Ray 12/12/2017 12:15 PM HARBOR PILOT PH, PLEURAL FLUID Routine Gen Lab 12/12/2017 12:15 PM HARBOR PILOT BODY FLUID AEROBIC AND ANAEROBIC CULTURE AND GRAM STAIN Routine Gen Lab 12/12/2017 12:14 PM HARBOR PILOT LEUKEMIA/LYMPHOMA STUDIES Routine Gen Lab 12/12/2017 11:19 AM HARBOR PILOT SURGICAL PATHOLOGY Routine 12/12/2017 11:19 AM HARBOR PILOT GLUCOSE POC Routine Gen Lab 12/12/2017 8:50 AM HARBOR PILOT MORPHOLOGY EXAM After X-Ray 12/12/2017 3:40 AM HARBOR PILOT TACROLIMUS LEVEL, TROUGH After X-Ray 018 3:40 AM HARBOR PILOT CBC WITHOUT DIFFERENTIAL After X-Ray 018 3:40 AM HARBOR PILOT TYPE AND SCREEN After X-Ray 12/12/2017 3:40 AM HARBOR PILOT PHOSPHORUS After X-Ray 12/12/2017 3:40 AM HARBOR PILOT MAGNESIUM After X-Ray 12/12/2017 3:40 AM HARBOR PILOT LACTATE DEHYDROGENASE After X-Ray 12/12/2017 3:40 AM HARBOR PILOT COMPREHENSIVE METABOLIC PANEL After X-Ray 12/12/2017 3:40 AM HARBOR PILOT CYTOLOGY 12/12/2017 12:00 AM HARBOR PILOT SURGICAL PATHOLOGY 12/12/2017 12:00 AM HARBOR PILOT GLUCOSE POC Routine Gen Lab 12/11/2017 9:35 PM HARBOR PILOT GLUCOSE POC Routine Gen Lab 12/11/2017 5:54 PM HARBOR PILOT TACROLIMUS LEVEL, TROUGH After X-Ray 018 3:56 PM HARBOR PILOT LEGIONELLA PNEUMOPHILIA ANTIGEN, URINE RTNm 12/11/2017 3:56 PM HARBOR PILOT HISTOPLASMA ANTIGEN RTNm 12/11/2017 3 :56 PM HARBOR PILOT GLUCOSE POC Routine Gen Lab 12/11/2017 1:07 PM HARBOR PILOT GLUCOSE POC Routine Gen Lab 12/11/2017 9:24 AM HARBOR PILOT HEPATIC FUNCTION PANEL After X-Ray 8 6:32 AM HARBOR PILOT BASIC METABOLIC PANEL STAT 12/11/2017 6:32 AM HARBOR PILOT MORPHOLOGY EXAM After X-Ray 12/11/2017 3:30 AM HARBOR PILOT CBC WITHOUT DIFFERENTIAL After X-Ray 018 3:30 AM HARBOR PILOT PHOSPHORUS After X-Ray 12/11/2017 3:30 AM HARBOR PILOT MAGNESIUM After X-Ray 12/11/2017 3:30 AM HARBOR PILOT HEPATIC FUNCTION PANEL After X-Ray 8 3:30 AM HARBOR PILOT BASIC METABOLIC PANEL After X-Ray 12/11/2017 3:30 AM HARBOR PILOT GLUCOSE POC Routine Gen Lab 12/10/2017 8:53 PM HARBOR PILOT TACROLIMUS LEVEL, RANDOM Routine Gen Lab 12/10/2017 8:27 PM HARBOR PILOT GLUCOSE POC Routine Gen Lab 12/10/2017 4:52 PM HARBOR PILOT GLUCOSE POC Routine Gen Lab 12/10/2017 11:38 AM HARBOR PILOT GLUCOSE POC Routine Gen Lab 12/10/2017 10:17 AM HARBOR PILOT MORPHOLOGY EXAM After X-Ray 12/10/2017 3:02 AM HARBOR PILOT CBC WITHOUT DIFFERENTIAL After X-Ray 018 3:02 AM HARBOR PILOT PHOSPHORUS After X-Ray 12/10/2017 3:02 AM HARBOR PILOT MAGNESIUM After X-Ray 12/10/2017 3:02 AM HARBOR PILOT HEPATIC FUNCTION PANEL After X-Ray 8 3:02 AM HARBOR PILOT BASIC METABOLIC PANEL After X-Ray 12/10/2017 3:02 AM HARBOR PILOT BLOOD CULTURE RTNm 12/10/2017 1:18 AM HARBOR PILOT BLOOD CULTURE RTNm 12/10/2017 1:18 AM HARBOR PILOT GLUCOSE POC Routine Gen Lab 12/09/2017 9:12 PM HARBOR PILOT GLUCOSE POC Routine Gen Lab 12/09/2017 6:52 PM HARBOR PILOT GLUCOSE POC Routine Gen Lab 12/09/2017 3:[address] CHEST WO CONTRAST Routine 12/09/2017 1:28 PM HARBOR PILOT GLUCOSE POC Routine Gen Lab 12/09/2017 8:54 AM HARBOR PILOT CMV DNA QN, PCR After X-Ray 12/09/2017 4:17 AM HARBOR PILOT MORPHOLOGY EXAM After X-Ray 12/09/2017 4:17 AM HARBOR PILOT TACROLIMUS LEVEL, RANDOM After X-Ray 018 4:17 AM HARBOR PILOT APTT After X-Ray 12/09/2017 4:17 AM HARBOR PILOT PROTIME-INR After X-Ray 12/09/2017 4:17 AM HARBOR PILOT CBC WITHOUT DIFFERENTIAL After X-Ray 018 4:17 AM HARBOR PILOT TYPE AND SCREEN After X-Ray 12/09/2017 4:17 AM HARBOR PILOT PHOSPHORUS After X-Ray 12/09/2017 4:17 AM HARBOR PILOT MAGNESIUM After X-Ray 12/09/2017 4:17 AM HARBOR PILOT LACTATE DEHYDROGENASE After X-Ray 12/09/2017 4:17 AM HARBOR PILOT COMPREHENSIVE METABOLIC PANEL After X-Ray 12/09/2017 4:17 AM HARBOR PILOT US ABDOMEN LIMITED Routine 12/09/2017 1: 27 AM HARBOR PILOT GLUCOSE POC Routine Gen Lab 12/08/2017 9:46 PM HARBOR PILOT GLUCOSE POC Routine Gen Lab 12/08/2017 5:33 PM HARBOR PILOT GLUCOSE POC Routine Gen Lab 12/08/2017 2:27 PM HARBOR PILOT GLUCOSE POC Routine Gen Lab 12/08/2017 9:44 AM HARBOR PILOT POTASSIUM, WHOLE BLOOD STAT 8 9:01 AM HARBOR PILOT TACROLIMUS LEVEL, RANDOM After X-Ray 018 9:01 AM HARBOR PILOT MORPHOLOGY EXAM After X-Ray 12/08/2017 3:42 AM HARBOR PILOT CBC WITHOUT DIFFERENTIAL After X-Ray 018 3:42 AM HARBOR PILOT PHOSPHORUS After X-Ray 12/08/2017 3:42 AM HARBOR PILOT MAGNESIUM After X-Ray 12/08/2017 3:42 AM HARBOR PILOT GAMMA GT After X-Ray 12/08/2017 3:42 AM HARBOR PILOT HEPATIC FUNCTION PANEL After X-Ray 8 3:42 AM HARBOR PILOT BASIC METABOLIC PANEL After X-Ray 12/08/2017 3:42 AM HARBOR PILOT GLUCOSE POC Routine Gen Lab 12/07/2017 9:46 PM HARBOR PILOT GLUCOSE POC Routine Gen Lab 12/07/2017 7:12 PM HARBOR PILOT GLUCOSE POC Routine Gen Lab 12/07/2017 2:12 PM HARBOR PILOT POTASSIUM, WHOLE BLOOD Routine Gen Lab 12/07/2017 9:53 AM HARBOR PILOT TACROLIMUS LEVEL, RANDOM Routine Gen Lab 12/07/2017 9:53 AM HARBOR PILOT GLUCOSE POC Routine Gen Lab 12/07/2017 7:38 AM HARBOR PILOT MORPHOLOGY EXAM After X-Ray 12/07/2017 3:27 AM HARBOR PILOT CBC WITHOUT DIFFERENTIAL After X-Ray 018 3:27 AM HARBOR PILOT PHOSPHORUS After X-Ray 12/07/2017 3:27 AM HARBOR PILOT MAGNESIUM After X-Ray 12/07/2017 3:27 AM HARBOR PILOT HEPATIC FUNCTION PANEL After X-Ray 8 3:27 AM HARBOR PILOT BASIC METABOLIC PANEL After X-Ray 12/07/2017 3:27 AM HARBOR PILOT GLUCOSE POC Routine Gen Lab 12/06/2017 8:51 PM HARBOR PILOT GLUCOSE POC Routine Gen Lab 12/06/2017 5:44 PM HARBOR PILOT GLUCOSE POC Routine Gen Lab 12/06/2017 2:05 PM HARBOR PILOT TACROLIMUS LEVEL, RANDOM STAT 018 1:22 PM HARBOR PILOT POTASSIUM, WHOLE BLOOD STAT 8 9:02 AM HARBOR PILOT GLUCOSE POC Routine Gen Lab 12/06/2017 8:45 AM HARBOR PILOT MORPHOLOGY EXAM After X-Ray 12/06/2017 1:25 AM HARBOR PILOT HEPARIN ANTI FACTOR XA ACTIVITY After X-Ray 12/06/2017 1:25 AM HARBOR PILOT CBC WITHOUT DIFFERENTIAL After X-Ray 018 1:25 AM HARBOR PILOT HEPATIC FUNCTION PANEL After X-Ray 8 1:25 AM HARBOR PILOT BASIC METABOLIC PANEL After X-Ray 12/06/2017 1:25 AM HARBOR PILOT GLUCOSE POC Routine Gen Lab 12/05/2017 8:55 PM HARBOR PILOT GLUCOSE POC Routine Gen Lab 12/05/2017 6:36 PM HARBOR PILOT GLUCOSE POC Routine Gen Lab 12/05/2017 1:05 PM HARBOR PILOT XR CHEST 1 VIEW Routine 12/05/2017 12:07 PM HARBOR PILOT TACROLIMUS LEVEL, TROUGH After X-Ray 018 9:30 AM HARBOR PILOT GLUCOSE POC Routine Gen Lab 12/05/2017 9:16 AM HARBOR PILOT MORPHOLOGY EXAM After X-Ray 12/05/2017 5:59 AM HARBOR PILOT CBC WITHOUT DIFFERENTIAL After X-Ray 018 5:59 AM HARBOR PILOT TYPE AND SCREEN After X-Ray 12/05/2017 5:59 AM HARBOR PILOT PHOSPHORUS After X-Ray 12/05/2017 5:59 AM HARBOR PILOT MAGNESIUM After X-Ray 12/05/2017 5:59 AM HARBOR PILOT LACTATE DEHYDROGENASE After X-Ray 12/05/2017 5:59 AM HARBOR PILOT GAMMA GT After X-Ray 12/05/2017 5:59 AM HARBOR PILOT COMPREHENSIVE METABOLIC PANEL After X-Ray 12/05/2017 5:59 AM HARBOR PILOT GLUCOSE POC Routine Gen Lab 12/04/2017 8:34 PM HARBOR PILOT XR CHEST 1 VIEW Routine 12/04/2017 4:23 PM HARBOR PILOT US GUIDED THORACENTESIS Routine 12/04/19 4:21 PM HARBOR PILOT GLUCOSE POC Routine Gen Lab 12/04/2017 4:19 PM HARBOR PILOT GLUCOSE POC Routine Gen Lab 12/04/2017 11:41 AM HARBOR PILOT LEUKEMIA/LYMPHOMA STUDIES Routine Gen Lab 12/04/2017 9:36 AM HARBOR PILOT SURGICAL PATHOLOGY Routine 12/04/2017 9: 36 AM HARBOR PILOT PROTEIN, PLEURAL FLUID Routine Gen Lab 12/04/2017 9:17 AM HARBOR PILOT GLUCOSE, PLEURAL FLUID Routine Gen Lab 12/04/2017 9:17 AM HARBOR PILOT ALBUMIN, BODY FLUID W/PROMPTS After X-Ray 12/04/2017 9:16 AM HARBOR PILOT FLUID REFERENCE RANGE Routine Gen Lab 12/04/2017 9:16 AM HARBOR PILOT MYCOLOGY (FUNGAL) CULTURE RTNm 2017 9:16 AM HARBOR PILOT BODY FLUID AEROBIC AND ANAEROBIC CULTURE RTNm 12/04/2017 9:16 AM HARBOR PILOT CYTOLOGY Routine 12/04/2017 9:16 AM HARBOR PILOT BODY FLUID CELL COUNT WITH DIFFERENTIAL Routine Gen Lab 12/04/2017 9:16 AM HARBOR PILOT LACTATE DEHYDROGENASE, BODY FLUID After X-Ray 12/04/2017 9:16 AM HARBOR PILOT PH, PLEURAL FLUID After X-Ray 12/04/2017 9:1 6 AM HARBOR PILOT GLUCOSE POC Routine Gen Lab 12/04/2017 8:26 AM HARBOR PILOT MORPHOLOGY EXAM After X-Ray 12/04/2017 4:24 AM HARBOR PILOT PROTIME-INR After X-Ray 12/04/2017 4:24 AM HARBOR PILOT CBC WITHOUT DIFFERENTIAL After X-Ray 2 018 4:24 AM HARBOR PILOT PHOSPHORUS After X-Ray 12/04/2017 4:24 AM HARBOR PILOT MAGNESIUM After X-Ray 12/04/2017 4:24 AM HARBOR PILOT LACTATE DEHYDROGENASE After X-Ray 12/04/2017 4:24 AM HARBOR PILOT BASIC METABOLIC PANEL After X-Ray 12/04/2017 4:24 AM HARBOR PILOT CYTOLOGY 12/04/2017 12:00 AM HARBOR PILOT SURGICAL PATHOLOGY 12/04/2017 12:00 AM HARBOR PILOT GLUCOSE POC Routine Gen Lab 12/03/2017 10:36 PM HARBOR PILOT XR CHEST PA LATERAL 2 VIEWS Routine 12/03/2017 8:40 PM HARBOR PILOT GLUCOSE POC Routine Gen Lab 12/03/2017 7:05 PM HARBOR PILOT GLUCOSE POC Routine Gen Lab 12/03/2017 1:54 PM HARBOR PILOT GLUCOSE POC Routine Gen Lab 12/03/2017 8:07 AM HARBOR PILOT CMV DNA QN, PCR After X-Ray 12/03/2017 3:09 AM HARBOR PILOT MORPHOLOGY EXAM After X-Ray 12/03/2017 3:09 AM HARBOR PILOT CBC WITHOUT DIFFERENTIAL After X-Ray 3:09 AM HARBOR PILOT PHOSPHORUS After X-Ray 12/03/2017 3:09 AM HARBOR PILOT MAGNESIUM After X-Ray 12/03/2017 3:09 AM HARBOR PILOT BASIC METABOLIC PANEL After X-Ray 12/03/2017 3:09 AM HARBOR PILOT GLUCOSE POC Routine Gen Lab 12/02/2017 9:08 PM HARBOR PILOT GLUCOSE POC Routine Gen Lab 12/02/2017 7:33 PM HARBOR PILOT GLUCOSE POC Routine Gen Lab 12/02/2017 2:24 PM HARBOR PILOT RESPIRATORY PATHOGEN PANEL RTNm 12/02/2017 12:02 PM HARBOR PILOT INFLUENZA A/B PCR RTNm 12/02/2017 12:02 PM HARBOR PILOT GLUCOSE POC Routine Gen Lab 12/02/2017 9:09 AM HARBOR PILOT TACROLIMUS LEVEL, TROUGH After X-Ray 018 9:08 AM HARBOR PILOT MORPHOLOGY EXAM After X-Ray 12/02/2017 3:54 AM HARBOR PILOT APTT After X-Ray 12/02/2017 3:54 AM HARBOR PILOT PROTIME-INR After X-Ray 12/02/2017 3:54 AM HARBOR PILOT CBC WITHOUT DIFFERENTIAL After X-Ray 018 3:54 AM HARBOR PILOT TYPE AND SCREEN After X-Ray 12/02/2017 3:54 AM HARBOR PILOT URIC ACID After X-Ray 12/02/2017 3:54 AM HARBOR PILOT PHOSPHORUS After X-Ray 12/02/2017 3:54 AM HARBOR PILOT MAGNESIUM After X-Ray 12/02/2017 3:54 AM HARBOR PILOT LACTATE DEHYDROGENASE After X-Ray 12/02/2017 3:54 AM HARBOR PILOT COMPREHENSIVE METABOLIC PANEL After X-Ray 12/02/2017 3:54 AM HARBOR PILOT GLUCOSE POC Routine Gen Lab 12/01/2017 8:13 PM HARBOR PILOT GLUCOSE POC Routine Gen Lab 12/01/2017 5:[address] CHEST WO CONTRAST Routine 12/01/2017 4:42 PM HARBOR PILOT GLUCOSE POC Routine Gen Lab 12/01/2017 12:29 PM HARBOR PILOT INFECTION PREVENTION VRE CULTURE RTNm 12/01/2017 12:27 PM HARBOR PILOT GLUCOSE POC Routine Gen Lab 12/01/2017 8:46 AM HARBOR PILOT MORPHOLOGY EXAM After X-Ray 12/01/2017 3:11 AM HARBOR PILOT CBC WITHOUT DIFFERENTIAL After X-Ray 018 3:11 AM HARBOR PILOT PHOSPHORUS After X-Ray 12/01/2017 3:11 AM HARBOR PILOT MAGNESIUM After X-Ray 12/01/2017 3:11 AM HARBOR PILOT BASIC METABOLIC PANEL After X-Ray 12/01/2017 3:11 AM HARBOR PILOT GLUCOSE POC Routine Gen Lab 11/30/2017 6:07 PM HARBOR PILOT GLUCOSE POC Routine Gen Lab 11/30/2017 11:46 AM HARBOR PILOT GLUCOSE POC Routine Gen Lab 11/30/2017 8:52 AM HARBOR PILOT MORPHOLOGY EXAM After X-Ray 11/30/2017 2:55 AM HARBOR PILOT CBC WITHOUT DIFFERENTIAL After X-Ray 018 2:55 AM HARBOR PILOT PHOSPHORUS After X-Ray 11/30/2017 2:55 AM HARBOR PILOT MAGNESIUM After X-Ray 11/30/2017 2:55 AM HARBOR PILOT BASIC METABOLIC PANEL After X-Ray 11/30/2017 2:55 AM HARBOR PILOT GLUCOSE POC Routine Gen Lab 11/29/2017 8:20 PM HARBOR PILOT GLUCOSE POC Routine Gen Lab 11/29/2017 6:12 PM HARBOR PILOT GLUCOSE POC Routine Gen Lab 11/29/2017 1:04 PM HARBOR PILOT GLUCOSE POC Routine Gen Lab 11/29/2017 9:19 AM HARBOR PILOT CALCIUM, IONIZED After X-Ray 11/29/2017 9:09 AM HARBOR PILOT TROPONIN I After X-Ray 11/29/2017 9:08 AM HARBOR PILOT BASIC METABOLIC PANEL After X-Ray 11/29/2017 6:13 AM HARBOR PILOT MORPHOLOGY EXAM After X-Ray 11/29/2017 4:33 AM HARBOR PILOT CBC WITHOUT DIFFERENTIAL After X-Ray 018 4:33 AM HARBOR PILOT PHOSPHORUS After X-Ray 11/29/2017 4:33 AM HARBOR PILOT MAGNESIUM After X-Ray 11/29/2017 4:33 AM HARBOR PILOT BASIC METABOLIC PANEL After X-Ray 11/29/2017 4:33 AM HARBOR PILOT GLUCOSE POC Routine Gen Lab 11/28/2017 8:01 PM HARBOR PILOT GLUCOSE POC Routine Gen Lab 11/28/2017 5:41 PM HARBOR PILOT GLUCOSE POC Routine Gen Lab 11/28/2017 3:04 PM HARBOR PILOT HEPARIN ANTI FACTOR XA ACTIVITY Routine Gen Lab 11/28/2017 12:58 PM HARBOR PILOT IGG Routine Gen Lab 11/28/2017 12:58 PM HARBOR PILOT TACROLIMUS LEVEL, TROUGH After X-Ray 018 8:57 AM HARBOR PILOT BASIC METABOLIC PANEL After X-Ray 11/28/2017 8:57 AM HARBOR PILOT GLUCOSE POC Routine Gen Lab 11/28/2017 8:37 AM HARBOR PILOT GLUCOSE POC Routine Gen Lab 11/28/2017 6:37 AM HARBOR PILOT TYPE AND SCREEN After X-Ray 11/28/2017 4:38 AM HARBOR PILOT PROTIME-INR After X-Ray 11/28/2017 3:57 AM HARBOR PILOT CBC WITHOUT DIFFERENTIAL After X-Ray 018 3:57 AM HARBOR PILOT CREATININE After X-Ray 11/28/2017 3:57 AM HARBOR PILOT CRITICAL RESULT CALLBACK CHEMISTRY After X-Ray 11/28/2017 12:50 AM HARBOR PILOT POTASSIUM LEVEL After X-Ray 11/28/2017 12:50 AM HARBOR PILOT VANCOMYCIN LEVEL TROUGH After X-Ray 11/28/19 18 12:50 AM HARBOR PILOT GLUCOSE POC Routine Gen Lab 11/27/2017 10:35 PM HARBOR PILOT GLUCOSE POC Routine Gen Lab 11/27/2017 9:32 PM HARBOR PILOT GLUCOSE POC Routine Gen Lab 11/27/2017 6:04 PM HARBOR PILOT GLUCOSE POC Routine Gen Lab 11/27/2017 11:20 AM HARBOR PILOT GLUCOSE POC Routine Gen Lab 11/27/2017 9:29 AM HARBOR PILOT PHOSPHORUS After X-Ray 11/27/2017 4:03 AM HARBOR PILOT MAGNESIUM After X-Ray 11/27/2017 4:03 AM HARBOR PILOT COMPREHENSIVE METABOLIC PANEL After X-Ray 11/27/2017 4:03 AM HARBOR PILOT HEPARIN ANTI FACTOR XA ACTIVITY After X-Ray 11/27/2017 1:18 AM HARBOR PILOT PROTIME-INR After X-Ray 11/27/2017 1:12 AM HARBOR PILOT CBC WITHOUT DIFFERENTIAL After X-Ray 018 1:12 AM HARBOR PILOT PHOSPHORUS After X-Ray 11/27/2017 1:12 AM HARBOR PILOT MAGNESIUM After X-Ray 11/27/2017 1:12 AM HARBOR PILOT BASIC METABOLIC PANEL After X-Ray 11/27/2017 1:12 AM HARBOR PILOT GLUCOSE POC Routine Gen Lab 11/26/2017 8:32 PM HARBOR PILOT GLUCOSE POC Routine Gen Lab 11/26/2017 6:01 PM HARBOR PILOT GLUCOSE POC Routine Gen Lab 11/26/2017 12:05 PM HARBOR PILOT CLOSTRIDIUM DIFFICILE ASSAY RTNm 11/26/2017 10:31 AM HARBOR PILOT VRE CULTURE, SURVEILLANCE Routine Gen Lab 11/26/2017 10:30 AM HARBOR PILOT XR CHEST 1 VIEW Routine 11/26/2017 9:37 AM HARBOR PILOT GLUCOSE POC Routine Gen Lab 11/26/2017 8:00 AM HARBOR PILOT DIFFERENTIAL AUTO After X-Ray 11/26/2017 4:3 5 AM HARBOR PILOT CBC WITH AUTO DIFFERENTIAL After X-Ray 11/26/2017 4:35 AM HARBOR PILOT PROTIME-INR After X-Ray 11/26/2017 4:35 AM HARBOR PILOT GLUCOSE POC Routine Gen Lab 11/26/2017 4:08 AM HARBOR PILOT PHOSPHORUS Routine Gen Lab 11/26/2017 3:58 AM HARBOR PILOT MAGNESIUM Routine Gen Lab 11/26/2017 3:58 AM HARBOR PILOT LIPASE Routine Gen Lab 11/26/2017 3:58 AM HARBOR PILOT COMPREHENSIVE METABOLIC PANEL Routine Gen Lab 11/26/2017 3:58 AM HARBOR PILOT GLUCOSE POC Routine Gen Lab 11/26/2017 12:01 AM HARBOR PILOT GLUCOSE POC Routine Gen Lab 11/25/2017 8:21 PM HARBOR PILOT GLUCOSE POC Routine Gen Lab 11/25/2017 4:28 PM HARBOR PILOT XR CONSULT OF OUTSIDE FILMS (PEDS ONLY) Routine 11/25/2017 3:07 PM HARBOR PILOT GLUCOSE POC Routine Gen Lab 11/25/2017 12:01 PM HARBOR PILOT XR CHEST 1 VIEW Routine 11/25/2017 11:26 AM HARBOR PILOT GLUCOSE POC Routine Gen Lab 11/25/2017 8:52 AM HARBOR PILOT POCT ARTERIAL BLOOD GAS, CPB Routine Gen Lab 11/25/2017 8:52 AM HARBOR PILOT GLUCOSE POC Routine Gen Lab 11/25/2017 4:07 AM HARBOR PILOT DIFFERENTIAL AUTO After X-Ray 11/25/2017 12:17 AM HARBOR PILOT GLUCOSE POC Routine Gen Lab 11/25/2017 12:17 AM HARBOR PILOT CBC WITH AUTO DIFFERENTIAL After X-Ray 11/25/2017 12:17 AM HARBOR PILOT PROTIME-INR After X-Ray 11/25/2017 12:17 AM HARBOR PILOT PHOSPHORUS After X-Ray 11/25/2017 12:17 AM HARBOR PILOT MAGNESIUM After X-Ray 11/25/2017 12:17 AM HARBOR PILOT LIPASE After X-Ray 11/25/2017 12:17 AM HARBOR PILOT VANCOMYCIN LEVEL TROUGH After X-Ray 11/25/19 18 12:17 AM HARBOR PILOT COMPREHENSIVE METABOLIC PANEL After X-Ray 11/25/2017 12:17 AM HARBOR PILOT GLUCOSE POC Routine Gen Lab 11/24/2017 7:37 PM HARBOR PILOT POCT ARTERIAL BLOOD GAS, CPB Routine Gen Lab 11/24/2017 5:08 PM HARBOR PILOT GLUCOSE POC Routine Gen Lab 11/24/2017 3:32 PM HARBOR PILOT GLUCOSE POC Routine Gen Lab 11/24/2017 11:52 AM HARBOR PILOT XR CHEST 1 VIEW Routine 11/24/2017 11:20 AM HARBOR PILOT POCT ARTERIAL BLOOD GAS, CPB Routine Gen Lab 11/24/2017 10:07 AM HARBOR PILOT BASIC METABOLIC PANEL After X-Ray 11/24/2017 7:36 AM HARBOR PILOT POCT ARTERIAL BLOOD GAS, CPB Routine Gen Lab 11/24/2017 7:32 AM HARBOR PILOT GLUCOSE POC Routine Gen Lab 11/24/2017 7:24 AM HARBOR PILOT XR CONSULT OF OUTSIDE FILMS (PEDS ONLY) Routine 11/24/2017 3:23 AM HARBOR PILOT DIFFERENTIAL AUTO After X-Ray 11/24/2017 2:2 1 AM HARBOR PILOT CBC WITH AUTO DIFFERENTIAL After X-Ray 11/24/2017 2:21 AM HARBOR PILOT PROTIME-INR After X-Ray 11/24/2017 2:21 AM HARBOR PILOT PHOSPHORUS After X-Ray 11/24/2017 2:21 AM HARBOR PILOT MAGNESIUM After X-Ray 11/24/2017 2:21 AM HARBOR PILOT LIPASE After X-Ray 11/24/2017 2:21 AM HARBOR PILOT LIPID PANEL After X-Ray 11/24/2017 2:21 AM HARBOR PILOT COMPREHENSIVE METABOLIC PANEL After X-Ray 11/24/2017 2:21 AM HARBOR PILOT POCT ARTERIAL BLOOD GAS, CPB Routine Gen Lab 11/24/2017 2:17 AM HARBOR PILOT GLUCOSE POC Routine Gen Lab 11/23/2017 11:59 PM HARBOR PILOT XR CHEST 1 VIEW Routine 11/23/2017 11:01 PM HARBOR PILOT GLUCOSE POC Routine Gen Lab 11/23/2017 8:12 PM HARBOR PILOT TACROLIMUS LEVEL, RANDOM STAT 018 7:32 PM HARBOR PILOT POCT ARTERIAL BLOOD GAS, CPB Routine Gen Lab 11/23/2017 7:28 PM HARBOR PILOT CMV DNA QN, PCR Routine Gen Lab 11/23/2017 4:42 PM HARBOR PILOT BETA-HYDROXYBUTYRATE Routine Gen Lab 11/23/2017 4:42 PM HARBOR PILOT URINALYSIS AND REFLEX TO MICROSCOPIC AND CULTURE Routine Gen Lab 11/23/2017 4:42 PM HARBOR PILOT HEMOGLOBIN A1C Routine Gen Lab 11/23/2017 4:42 PM HARBOR PILOT RESPIRATORY PATHOGEN PANEL RTNm 11/23/2017 4:40 PM HARBOR PILOT INFLUENZA A/B PCR RTNm 11/23/2017 4:4 0 PM HARBOR PILOT CBC WITH AUTO DIFFERENTIAL STAT 11/23/2017 4:40 PM HARBOR PILOT TROPONIN I STAT 11/23/2017 4:40 PM HARBOR PILOT MANUAL DIFFERENTIAL STAT 11/23/2017 4 :40 PM HARBOR PILOT BLOOD CULTURE RTNm 11/23/2017 4:40 PM HARBOR PILOT BLOOD CULTURE RTNm 11/23/2017 4:40 PM HARBOR PILOT PROTIME-INR STAT 11/23/2017 4:40 PM HARBOR PILOT TYPE AND SCREEN STAT 11/23/2017 4:40 PM HARBOR PILOT MOLD BLOOD CULTURE RTNm 11/23/2017 4: 40 PM HARBOR PILOT INFECTION PREVENTION MRSA ONLY (STAPHYLOCOCCUS AUREUS) CULTURE RTNm 11/23/2017 4:40 PM HARBOR PILOT TRIGLYCERIDES STAT 11/23/2017 4:40 PM HARBOR PILOT PHOSPHORUS STAT 11/23/2017 4:40 PM HARBOR PILOT MAGNESIUM STAT 11/23/2017 4:40 PM HARBOR PILOT LIPASE STAT 11/23/2017 4:40 PM HARBOR PILOT LACTATE DEHYDROGENASE STAT 11/23/2017 4:40 PM HARBOR PILOT AMYLASE STAT 11/23/2017 4:40 PM HARBOR PILOT COMPREHENSIVE METABOLIC PANEL STAT 11/23/2017 4:40 PM HARBOR PILOT POCT ARTERIAL BLOOD GAS, CPB Routine Gen Lab 11/23/2017 4:15 PM HARBOR PILOT ELECTROCARDIOGRAPHY (ECG) 11/23/2017 ELECTROCARDIOGRAPHY (ECG) 11/23/2017 TRANSTHORACIC ECHO (TTE) COMPLETE W DOPPLER/CF WO CONTRAST 11/23/2017 documented in this encounter Results * Glucose POC (12/13/2017 1:56 PM HARBOR PILOT) [facility] Glucose, POC 173 70 - 199 mg/dL [facility] Blood specimen (specimen) 12/13/2017 1:56 PM HARBOR PILOT 12/13/2017 1:56 PM HARBOR PILOT Narrative [facility] - 12/13/2017 2:12 PM HARBOR PILOT us Francis Park MD PhD POINT OF CARE TEST ORDER SUBHA Final Result [facility] Department [place] [address] * Glucose POC (12/13/2017 9:24 AM HARBOR PILOT) [facility] Glucose, POC 157 70 - 199 mg/dL [facility] Blood specimen (specimen) 12/13/2017 9:24 AM HARBOR PILOT 12/13/2017 9:24 AM HARBOR PILOT Narrative [facility] - 12/13/2017 9:43 AM HARBOR PILOT us Francis Park MD PhD POINT OF CARE TEST ORDER SUBHA Final Result Performing Organization Address City/[facility] Co de Phone Number [facility] [place] [address] * (ABNORMAL) Hepatic function panel (12/13/2017 3:18 AM HARBOR PILOT) [facility] AST 46 10 - 50 Units/L [facility] Comment:Hemolyzed; result ma y be falsely elevated. ALT 37 7 - 55 Units/L [facility] Alk phos 625(H) 40 - 130 Units/L [facility] Bilirubin, total 0.3 0.1 - 1.2 mg/dL [facility] Bilirubin, direct <0.2 0.1 - 0.3 mg/dL [facility] Protein, pl 8.1 6.5 - 8.5 g/dL [facility] Albumin 2.7(L) 3.5 - 5.0 g/dL [facility] Blood specimen (specimen) 12/13/2017 3:18 AM HARBOR PILOT 12/13/2017 5:19 AM HARBOR PILOT Narrative [facility] - 12/13/2017 9:04 AM HARBOR PILOT us Michael Perrin MD LAB BLOOD ORDERABLES Final Result Performing Organization Address City/[facility]/ZIP Co de Phone Number [facility] [place] [address] * Tacrolimus level trough (12/13/2017 3:18 AM HARBOR PILOT) [facility] Tacrolimus, trough 2.9 ng/mL [facility] Comment: Interpretive Data The therapeutic range for tacrolimus can vary by transplant organ type and sample timing but a trough range of 5 - 15 ng/mL is typical. Testing performed by liquid chromatography-tandem mass spectrometry (LC- MS/MS).This test was developed using an analyte specific reagent. Its performance characteristics were determined by the [facility] in a manner consistent with CLIA requirements. This test has not been cleared or approved by the U.S. Food and Drug Administration. Current interpretive data was last revised on 2016. Blood specimen (specimen) 12/13/2017 3:18 AM HARBOR PILOT 12/13/2017 5:19 AM HARBOR PILOT Narrative [facility] - 12/13/2017 7:01 AM HARBOR PILOT us Sharon Eid MD LAB BLOOD ORDERABLES Final R esult [facility] [place] [address] * (ABNORMAL) Morphology exam (12/13/2017 3:18 AM HARBOR PILOT) Neutrophils 27.8 % [facility] Lymphocytes 59.2 % [facility] Monos 5.2 % [facility] Eosinophils 7.8 % [facility] Platelet estimate Adequate [facility] Anisocytosis 2+(A) [facility] Macrocytes 8-15/HPF(A) [facility] WBC counted 115 Cells [facility] RBC morphology Present(A) [facility] Neutrophil abs 1.73 1.70 - 6.50 K/cumm [facility] Lymphs, abs 3.69(H) 0.80 - 3.30 K/cumm [facility] Monos, abs 0.32 0.20 - 0.80 K/cumm [facility] Eosinophils, abs 0.49 0.00 - 0.50 K/cumm [facility] Immature granulocyte, abs 0.00 0.00 - 0.10 K/cumm [facility] Blood specimen (specimen) 12/13/2017 3:18 AM HARBOR PILOT 12/13/2017 5:08 AM HARBOR PILOT Narrative [facility] - 12/13/2017 6:18 AM HARBOR PILOT us Michael Perrin MD LAB BLOOD ORDERABLES Final Result [facility] [place] [address] * (ABNORMAL) Basic metabolic panel (12/13/2017 3:18 AM HARBOR PILOT) Sodium 134(L) 135 - 145 mmol/L [facility] Potassium, pl 5.1(H) 3.3 - 4.9 mmol/L [facility] Comment:Hemolyzed; (++); pot assium value may be falsely elevated by as much as 0.3 - 0.5 mmol/L. Suggest redraw and reanalysis. Chloride 98 97 - 110 mmol/L [facility] CO2 30 22 - 32 mmol/L [facility] BUN 10 8 - 25 mg/dL [facility] Glucose 116 70 - 199 mg/dL [facility] [...] 2017. Creatinine 0.65(L) 0.80 - 1.30 mg/dL [facility] Calcium 9.1 8.5 - 10.3 mg/dL [facility] Anion gap 6 2 - 15 mmol/L [facility] Blood specimen (specimen) 12/13/2017 3:18 AM HARBOR PILOT 12/13/2017 5:19 AM HARBOR PILOT Narrative [facility] - 12/13/2017 5:53 AM HARBOR PILOT us Michael Perrin MD LAB BLOOD ORDERABLES Final Result Performing Organization Address City/[facility] Co de Phone Number [facility] [place] [address] * Magnesium (12/13/2017 3:18 AM HARBOR PILOT) [facility] Magnesium 1.6 1.4 - 2.5 mg/dL [facility] Blood specimen (specimen) 12/13/2017 3:18 AM HARBOR PILOT 12/13/2017 5:19 AM HARBOR PILOT Narrative [facility] - 12/13/2017 5:53 AM HARBOR PILOT Michael Perrin MD LAB BLOOD ORDERABLES Final Result Performing Organization Address [facility] [place] [address] * Phosphorus (12/13/2017 3:18 AM HARBOR PILOT) [facility] Phosphorus, pl 3.3 2.3 - 4.5 mg/dL [facility] Blood specimen (specimen) 12/13/2017 3:18 AM HARBOR PILOT 12/13/2017 5:19 AM HARBOR PILOT Narrative [facility] - 12/13/2017 5:53 AM HARBOR PILOT Michael Perrin MD LAB BLOOD ORDERABLES Final Result Performing Organization Address City/[facility] Co de Phone Number [facility] [place] [address] * (ABNORMAL) CBC without differential (12/13/2017 3:18 AM HARBOR PILOT) [facility] WBC 6.24 3.80 - 9.90 K/cumm [facility] RBC 3.15(L) 4.30 - 5.80 M/cumm [facility] Hgb 10.5(L) 13.0 - 17.5 g/dL [facility] Hct 31.2(L) 38.9 - 50.3 % [facility] MCV 99.0(H) 81.3 - 96.4 fL [facility] MCH 33.3 27.1 - 33.3 pg [facility] MCHC 33.7 32.3 - 35.7 g/dL [facility] RDW CV 14.6 11.1 - 14.9 % [facility] RDW SD 52.7(H) 35.7 - 48.1 fL [facility] NRBC 0.0 0.0 - 0.2 % [facility] NRBC abs 0.00 0.00 - 0.01 K/cumm [facility] Plt 328 150 - 400 K/cumm [facility] MPV 10.9 9.1 - 12.3 fL [facility] Blood specimen (specimen) 12/13/2017 3:18 AM HARBOR PILOT 12/13/2017 5:08 AM HARBOR PILOT Narrative [facility] - 12/13/2017 5:15 AM HARBOR PILOT us Michael Perrin MD LAB BLOOD ORDERABLES Final Result [facility] [place] [address] * DISCHARGE LABORATORY CUMULATIVE REPORT (12/13/2017 12:00 AM HARBOR PILOT) Narrative 12/13/2017 12:00 AM HARBOR PILOT Ordered by an unspecified provider. us Historical Provider LAB BLOOD ORDERABLES Pilar l Result * Glucose POC (12/12/2017 8:36 PM HARBOR PILOT) Glucose, POC 155 70 - 199 mg/dL [facility] Blood specimen (specimen) 12/12/2017 8:36 PM HARBOR PILOT 12/12/2017 8:36 PM HARBOR PILOT Narrative [facility] - 12/12/2017 8:51 PM HARBOR PILOT us Francis Park MD PhD POINT OF CARE TEST ORDER SUBHA Final Result [facility] [place] [address] * XR Chest 1 Vw (12/12/2017 6:00 PM HARBOR PILOT) Anatomical Region Laterality Modality Body, Chest N/A Radiographic Tiffany ging 12/12/2017 6:00 PM HARBOR PILOT Narrative 12/12/2017 6:45 PM HARBOR PILOT BHAVIN OCHOA M.D. FINAL REPORT ACC# ??Date Time ??Exam [id number] Dec 12, 2017 12:00:00 16080 Chest 1 view Frontal EXAMINATION: ??1 view [...] Fax: ?? Attending Fax: ?? Attending ID: ??[id number] Requesting ID: ??[id number] Report To 1 ID: ??[id number] ? Report To 1 Name: ??, ?? Report To 1 FAX: ?? NextGen Order #: ?? Procedure Note Miscellaneous, Not In File - 12/12/2017 BHAVIN OCHOA M.D. FINAL REPORT ACC# Date Time Exam [id number] Dec 12, 2017 12:00:00 49125 Chest 1 view Frontal EXAMINATION: 1 view [...] CALLEJAS Requesting Fax: Attending Fax: Attending ID: [id number] Requesting ID: [id number] Report To 1 ID: [id number] Report To 1 Name: , Report To 1 FAX: NextGen Order #: us Sourav Callejas MD IMG XR PROCEDURES Final Result * US Guided Thoracentesis (12/12/2017 5:43 PM HARBOR PILOT) Anatomical Region Laterality Modality Chest N/A Ultrasound 12/12/2017 5:43 PM HARBOR PILOT Narrative 12/12/2017 6:09 PM HARBOR PILOT GATITO CARBALLO M.D. FINAL REPORT ACC# ??Date Time ??Exam [id number] Dec 12, 2017 11:43:00 [id number] Thoracentesis w Imaging EXAMINATION: ??DIAGNOSTIC AND THERAPEUTIC [...] administration with 10 mL of Lidocaine 1%. 5-Turkmen one-step gauge needle was advanced into the [...] CARBALLO M.D. on Dec 12 2017 12:07P [id number] CARBALLO M.D. FINAL REPORT Attending: ??MARCELINA, ??SOURAV Requesting: ??DAMON HURTADO, ??ALAN Requesting Fax: ?? Attending Fax: ?? Attending ID: ??[id number] Requesting ID: ??[id number] Report To 1 ID: ??[id number] ? Report To 1 Name: ??, ?? Report To 1 FAX: ?? NextGen Order #: ?? Procedure Note Miscellaneous, Not In File - 12/12/2017 GATITO CARBALLO M.D. FINAL REPORT ACC# Date Time Exam [id number] Dec 12, 2017 11:43:00 [id number] Thoracentesis w Imaging EXAMINATION: DIAGNOSTIC AND THERAPEUTIC [...] administration with 10 mL of Lidocaine 1%. 5-Turkmen one-step gauge needle was advanced into the [...] CARBALLO M.D. on Dec 12 2017 12:07P [id number] CARBALLO M.D. FINAL REPORT Attending: SOURAV CALLEJAS Requesting: ALAN KUMAR Requesting Fax: Attending Fax: Attending ID: [id number] Requesting ID: [id number] Report To 1 ID: [id number] Report To 1 Name: , Report To 1 FAX: NextGen Order #: us Alan Hurtado MD [facility] US PROCEDURES Final Result * (ABNORMAL) Glucose POC (12/12/2017 4:14 PM HARBOR PILOT) Glucose, POC 211(H) 70 - 199 mg/dL [facility] Blood specimen (specimen) 12/12/2017 4:14 PM HARBOR PILOT 12/12/2017 4:14 PM HARBOR PILOT [facility]ative [facility] 12/12/2017 5:53 PM HARBOR PILOT us Francis Park MD PhD POINT OF CARE TEST ORDER SUBHA Final Result [facility] [place] [address] * Cytology (12/12/2017 12:15 PM HARBOR PILOT) 12/12/2017 12:1 5 PM HARBOR PILOT 12/12/2017 1:14 PM HARBOR PILOT Narrative 12/13/2017 2:59 PM HARBOR PILOT [facility] Johnathon Jaramillo [facility] [place] [address] CYTOPATHOLOGY REPORT FINAL Patient Name: BRI JONES Address: [address] Service: [employer] ??SARAH SMITH ??[id number] Location: [facility] 6900 Taken: 12/12/2017 Gender: ??M Received: 12/12/2017 : 1965 (Age: 52) Hospital #: [id number] Accessioned: 12/12/2017 ?? Patient Type: [facility] Inpatient Reported: 12/13/2017 Physician(s): ??Justine Parker [...] ?? Colin Harley M.D. Shara Elaine, [place], [place](ASC)[facility] Report Electronically Reviewed and Signed [...] determined by the Surgical Pathology Department at [facility] as part of an ongoing clinical quality assurance associate program and in compliance with federally mandated [...] determined by the Surgical Pathology Department of [facility]. ??It has not been cleared or approved by the U. S. Food and Drug Administration. us Justine Parker LAB CYTOLOGY ORDERABLES Fin al Result * Fluid reference range (12/12/2017 12:15 PM HARBOR PILOT) Reference range disclaimer [facility] has no established reference ranges for this fluid type. [facility] Body fluid 12/12/2017 12:1 5 PM HARBOR PILOT 12/12/2017 12:47 PM HARBOR PILOT Narrative [facility] - 12/12/2017 1:38 PM HARBOR PILOT Alan Hurtado MD LAB BODY FLUIDS A ND STOOLS ORDERABLES Final Result [facility] [place] [address] * Cell count and differential, body fluid (12/12/2017 12:15 PM HARBOR PILOT) Specimen type, fld Pleural Fluid [facility] Body site, fld Pleural fluid [facility] Color, fld [place] Clarity, fld Slightly Cloudy Clear [facility] RBC, fld 8,109 cells/mcL [facility] Nucleated cells, fld 875 cells/mcL [facility] WBC counted 100 Cells [facility] Neutrophils, fld 3 % [facility] Lymphs, fld 80 % [facility] [place]/macrophage fld 16 % [facility] Mesothelial cells, fld 1 % [facility] Body fluid 12/12/2017 12:1 5 PM HARBOR PILOT 12/12/2017 12:47 PM HARBOR PILOT Narrative [facility] - 12/12/2017 1:38 PM HARBOR PILOT Alan Hurtado MD LAB BODY FLUIDS A ND STOOLS ORDERABLES Final Result [facility] [place] [address] * Lactate dehydrogenase, body fluid (12/12/2017 12:15 PM HARBOR PILOT) Specimen type, fld Pleural [facility] LD, fld 162 Units/L [facility] Comment: Interpretive Data Ratio of fluid [...] 2017. Body fluid 12/12/2017 12:1 5 PM HARBOR PILOT 12/12/2017 12:41 PM HARBOR PILOT Narrative [facility] - 12/12/2017 1:14 PM HARBOR PILOT us Alan Hurtado MD LAB BODY FLUIDS A ND STOOLS ORDERABLES Final Result Performing Organization Address [facility] Co de Phone Number [facility] [place] [address] * Glucose, Body Fluid W/Prompts (12/12/2017 12:15 PM HARBOR PILOT) Specimen type, fld Pleural [facility] Glucose, fld 131 mg/dL [facility] Comment: Interpretive Data Pleural - Glucose [...] 2017. ??Body Fluids Abstract p.925 Tomy Beaulieu, [facility] Journal of Medicine. ??Pleural effusions: Evaluation and Management. August 2005. Volume 72, Number 10. [employer] Test directory, Body Fluid Reference Intervals and/or Interpretative Information. ?? [email or web address]. Current Interpretive Data was last revised 2017. Body fluid 12/12/2017 12:1 5 PM HARBOR PILOT 12/12/2017 12:41 PM HARBOR PILOT Narrative [facility] - 12/12/2017 1:14 PM HARBOR PILOT us Alan Hurtado MD LAB BLOOD ORDERAB LES Final Result Performing Organization Address [facility]/ZIP Co de Phone Number [facility] [place] [address] * Protein, body fluid (12/12/2017 12:15 PM HARBOR PILOT) Specimen type, fld Pleural [facility] Protein, fld 5.4 g/dL [facility] Comment: Interpretive Data Pleural and Pericardial [...] 2017 Body fluid 12/12/2017 12:1 5 PM HARBOR PILOT 12/12/2017 12:41 PM HARBOR PILOT Narrative [facility] - 12/12/2017 1:06 PM HARBOR PILOT us Alan Hurtado MD LAB BODY FLUIDS A ND STOOLS ORDERABLES Final Result Performing Organization Address City/State/[facility] Co de Phone Number [facility] [place] [address] * pH, body fluid (12/12/2017 12:15 PM HARBOR PILOT) Fluid type Pleural [facility] pH, fld 7.33 [facility] Comment: Pleural fluid pH is normally approximately 7.64. pH <7.2 is indicative of complicated parapneumonic effusions. References: Daniel Moreno Textbook of Clinical Chemistry and Molecular Diagnositics. Elsevier Sixth Edition 2017. Body Fluids Abstract p. 925 Tomy Beaulieu, [facility] Journal of Medicine. Pleural effusions: Evaluation and Management. August 2005. Volume 72, Number 10. Body fluid 12/12/2017 12:1 5 PM HARBOR PILOT 12/12/2017 12:49 PM HARBOR PILOT Narrative [facility] - 12/12/2017 1:44 PM HARBOR PILOT us Francis Park MD PhD LAB BODY FLUIDS AND STOO LS ORDERABLES Final Result Performing Organization Address City/[facility] de Phone Number [facility] [place] [address] * Body fluid aerobic and anaerobic culture and gram stain (12/12/2017 12:14 PM HARBOR PILOT) Direct Specimen Exam Stain: Cytospin gram stain shows: Moderate polymorphonuclear leukocytes seen. Abundant Other cellular material present. No organisms seen. [facility] Report Final Report: No growth [facility] Thoracentesis fluid 12/12/19 18 12:14 PM HARBOR PILOT 12/12/2017 12:43 PM HARBOR PILOT Narrative [facility] - 12/13/2017 7:53 AM HARBOR PILOT Specimens submitted from normally sterile body sites [...] Francis Park MD PhD LAB MICROBIOLOGY - [facility] ORDERABLES Final Result Performing Organization Address [facility] de Phone Number [facility] [place] [address] * Surgical pathology (12/12/2017 11:19 AM HARBOR PILOT) 12/12/2017 11:1 9 AM HARBOR PILOT 12/12/2017 1:07 PM HARBOR PILOT Narrative 12/13/2017 4:00 PM HARBOR PILOT [facility] Johnathon Jaramillo [facility] [place] [address] SURGICAL PATHOLOGY REPORT FINAL Patient Name: BRI JONES ? Address: [address] [place] [address] ??Service: ??Internal Medicine ??[place] ??[id number] ??Location: [facility] Taken: 12/12/2017 Gender: M ?? Received: 12/12/2017 : 1965 (Age: 52) ??Hospital #: ??[id number] Accessioned: 12/12/2017 ?Patient Type: [facility] Inpatient Reported: 12/13/2017 ? Physician(s): Alan [...] determined by the Surgical Pathology Department at [facility] as part of an ongoing clinical quality assurance associate program and in compliance with federally mandated [...] determined by the Surgical Pathology Department of [facility]. ??It has not been cleared or approved by the U. S. Food and Drug Administration. Alan Hurtado MD LAB PATHOLOGY ORD ERABLES Final Result * Leukemia/lymphoma studies (12/12/2017 11:19 AM HARBOR PILOT) Metamyelocyte , Bone Marrow Test Completed [facility] 14 Test Completed [facility] CD 33 Test Completed [facility] CD 34 Test Completed [facility] CD 45 Test Completed [facility] CD 64 Test Completed [facility] CD 117 Test Completed [facility] CD 123 Test Completed [facility] Red Stain Test Completed [facility] Leukemia/Lymp gita Result See separate Surgical Pathology report. [facility] Body fluid 12/12/2017 11:1 9 AM HARBOR PILOT 12/12/2017 1:07 PM HARBOR PILOT Narrative [facility] - 12/12/2017 7:50 PM HARBOR PILOT Francis Park MD PhD LAB BLOOD ORDERABLES Fin al Result Performing Organization Address [facility] Co de Phone Number [facility] [place] [address] * Glucose POC (12/12/2017 8:50 AM HARBOR PILOT) Glucose, POC 103 70 - 199 mg/dL [facility] Blood specimen (specimen) 12/12/2017 8:50 AM HARBOR PILOT 12/12/2017 8:50 AM HARBOR PILOT Narrative [facility] - 12/12/2017 9:03 AM HARBOR PILOT Francis Park MD PhD POINT OF CARE TEST ORDER SUBHA Final Result Performing Organization Address [facility] de Phone Number [facility] [place] [address] * Type and screen (12/12/2017 3:40 AM HARBOR PILOT) Ursula, indirect Negative [facility] ABO Rh A Positive [facility] Blood specimen (specimen) 12/12/2017 3:40 AM HARBOR PILOT 12/12/2017 4:44 AM HARBOR PILOT Narrative [facility] - 12/12/2017 9:20 AM HARBOR PILOT us Micahel Perrin MD LAB BLOOD BANK TEST ORDERAB LES Final Result Performing Organization Address [facility] de Phone Number [facility] [place] [address] * Tacrolimus level trough (12/12/2017 3:40 AM HARBOR PILOT) Tacrolimus, trough 3.4 ng/mL [facility] Comment: Interpretive Data The therapeutic range for tacrolimus can vary by transplant organ type and sample timing but a trough range of 5 - 15 ng/mL is typical. Testing performed by liquid chromatography-tandem mass spectrometry (LC- MS/MS).This test was developed using an analyte specific reagent. Its performance characteristics were determined by the [facility] in a manner consistent with CLIA requirements. This test has not been cleared or approved by the U.S. Food and Drug Administration. Current interpretive data was last revised on 2016. Blood specimen (specimen) 12/12/2017 3:40 AM HARBOR PILOT 12/12/2017 4:50 AM HARBOR PILOT Narrative [facility] - 12/12/2017 8:22 AM HARBOR PILOT us Sharon Eid MD LAB BLOOD ORDERABLES Final R esult [facility] [place] [address] * (ABNORMAL) Morphology exam (12/12/2017 3:40 AM HARBOR PILOT) Neutrophils 16.5 % [facility] Lymphocytes 62.6 % [facility] Monos 10.4 % [facility] Eosinophils 9.6 % [facility] Basophil pct 0.9 % [facility] Platelet estimate Adequate [facility] Anisocytosis 3+(A) [facility] Macrocytes > 15/HPF(A) [facility] WBC counted 115 Cells [facility] RBC morphology Present(A) [facility] Neutrophil abs 0.87(L) 1.70 - 6.50 K/cumm [facility] Lymphs, abs 3.29 0.80 - 3.30 K/cumm [facility] Monos, abs 0.55 0.20 - 0.80 K/cumm [facility] Eosinophils, abs 0.50 0.00 - 0.50 K/cumm [facility] Basophils, abs 0.05 0.00 - 0.10 K/cumm [facility] Immature granulocyte, abs 0.00 0.00 - 0.10 K/cumm [facility] Blood specimen (specimen) 12/12/2017 3:40 AM HARBOR PILOT 12/12/2017 4:43 AM HARBOR PILOT Narrative [facility] - 12/12/2017 5:47 AM HARBOR PILOT us Michael Perrin MD LAB BLOOD ORDERABLES Final Result [facility] [place] [address] * (ABNORMAL) Comprehensive metabolic panel (12/12/2017 3:40 AM HARBOR PILOT) Sodium 132(L) 135 - 145 mmol/L [facility] Potassium, pl 4.7 3.3 - 4.9 mmol/L [facility] CO2 28 22 - 32 mmol/L [facility] BUN 10 8 - 25 mg/dL [facility] Glucose 113 70 - 199 mg/dL [facility] [...] 2017. Creatinine 0.65(L) 0.80 - 1.30 mg/dL [facility] Calcium 8.4(L) 8.5 - 10.3 mg/dL [facility] Chloride 101 97 - 110 mmol/L [facility] Albumin 2.3(L) 3.5 - 5.0 g/dL [facility] AST 47 10 - 50 Units/L [facility] ALT 38 7 - 55 Units/L [facility] Alk phos 640(H) 40 - 130 Units/L [facility] Bilirubin, total 0.3 0.1 - 1.2 mg/dL [facility] Protein, pl 7.4 6.5 - 8.5 g/dL [facility] Anion gap 3 2 - 15 mmol/L [facility] Blood specimen (specimen) 12/12/2017 3:40 AM HARBOR PILOT 12/12/2017 4:51 AM HARBOR PILOT Narrative [facility] - 12/12/2017 5:17 AM HARBOR PILOT Michael Perrin MD LAB BLOOD ORDERABLES Final Result Performing Organization Address City/[facility]/ZIP Co de Phone Number [facility] [place] [address] * Magnesium (12/12/2017 3:40 AM HARBOR PILOT) Magnesium 1.8 1.4 - 2.5 mg/dL [facility] Blood specimen (specimen) 12/12/2017 3:40 AM HARBOR PILOT 12/12/2017 4:51 AM HARBOR PILOT Narrative [facility] - 12/12/2017 5:17 AM HARBOR PILOT Michael Perrin MD LAB BLOOD ORDERABLES Final Result Performing Organization Address [facility] Co de Phone Number [facility] [place] [address] * Phosphorus (12/12/2017 3:40 AM HARBOR PILOT) Phosphorus, pl 3.0 2.3 - 4.5 mg/dL [facility] Blood specimen (specimen) 12/12/2017 3:40 AM HARBOR PILOT 12/12/2017 4:51 AM HARBOR PILOT Narrative [facility] - 12/12/2017 5:17 AM HARBOR PILOT Michael Perrin MD LAB BLOOD ORDERABLES Final Result Performing Organization Address City/[facility] [place] [address] * Lactate dehydrogenase (LD) (12/12/2017 3:40 AM HARBOR PILOT) Lactate dehydrogenase (LDH) 165 100 - 250 Units/L [facility] Blood specimen (specimen) 12/12/2017 3:40 AM HARBOR PILOT 12/12/2017 4:51 AM HARBOR PILOT Narrative [facility] - 12/12/2017 5:17 AM HARBOR PILOT us Michael Perrin MD LAB BLOOD ORDERABLES Final Result [facility] [place] [address] * (ABNORMAL) CBC without differential (12/12/2017 3:40 AM HARBOR PILOT) [facility] WBC 5.26 3.80 - 9.90 K/cumm [facility] RBC 2.98(L) 4.30 - 5.80 M/cumm [facility] Hgb 10.1(L) 13.0 - 17.5 g/dL [facility] Hct 29.8(L) 38.9 - 50.3 % [facility] MCV 100.0(H) 81.3 - 96.4 fL [facility] MCH 33.9(H) 27.1 - 33.3 pg [facility] MCHC 33.9 32.3 - 35.7 g/dL [facility] RDW CV 14.6 11.1 - 14.9 % [facility] RDW SD 54.0(H) 35.7 - 48.1 fL [facility] NRBC 0.0 0.0 - 0.2 % [facility] NRBC abs 0.00 0.00 - 0.01 K/cumm [facility] Plt 273 150 - 400 K/cumm [facility] MPV 10.9 9.1 - 12.3 fL [facility] Blood specimen (specimen) 12/12/2017 3:40 AM HARBOR PILOT 12/12/2017 4:43 AM HARBOR PILOT Narrative [facility] - 12/12/2017 4:53 AM HARBOR PILOT us Michael Perrin MD LAB BLOOD ORDERABLES Final Result [facility] [place] [address] * SURGICAL PATHOLOGY (12/12/2017 12:00 AM HARBOR PILOT) Narrative 12/12/2017 12:00 AM HARBOR PILOT Ordered by an unspecified provider. Historical Provider MD LAB PATHOLOGY ORDERABLES Final Result * CYTOLOGY (12/12/2017 12:00 AM HARBOR PILOT) Narrative 12/12/2017 12:00 AM HARBOR PILOT Ordered by an unspecified provider. Historical Provider MD LAB CYTOLOGY ORDERABLES F inal Result * Glucose POC (12/11/2017 9:35 PM HARBOR PILOT) Glucose, POC 155 70 - 199 mg/dL [facility] Blood specimen (specimen) 12/11/2017 9:35 PM HARBOR PILOT 12/11/2017 9:35 PM HARBOR PILOT Narrative [facility] - 12/12/2017 5:52 PM HARBOR PILOT Francis Park MD PhD POINT OF CARE TEST ORDER SUBHA Final Result [facility] [place] [address] * (ABNORMAL) Glucose POC (12/11/2017 5:54 PM HARBOR PILOT) Glucose, POC 223(H) 70 - 199 mg/dL [facility] Blood specimen (specimen) 12/11/2017 5:54 PM HARBOR PILOT 12/11/2017 5:54 PM HARBOR PILOT Narrative [facility] - 12/11/2017 6:33 PM HARBOR PILOT Francis Park MD PhD POINT OF CARE TEST ORDER SUBHA Final Result [facility] [place] [address] * Histoplasma antigen (12/11/2017 3:56 PM HARBOR PILOT) Report Direct Antigen Testing - Final: Negative [...] developed and its performance characteristics determined by [employer]. ??It has not been cleared or approved by the FDA; however, FDA clearance or approval is not currently required for clinical use. The results are not intended to be used as the sole means for clinical diagnosis or patient management decisions. [facility] Urine 12/11/2017 3:56 PM HARBOR PILOT 12/11/2017 5:36 PM HARBOR PILOT Narrative [facility] - 12/11/2017 5:36 PM HARBOR PILOT Testing Performed by: [employer], [place] [address]. Abhijeet Boothe MD LAB MICROBIOLOGY - GENERAL OR DERABLES Final Result [facility] [place] [address] * Legionella pneumophilia antigen, urine (12/11/2017 3:56 PM HARBOR PILOT) Report Direct Antigen Testing - Final: Negative for: Legionella antigen [facility] Urine 12/11/2017 3:56 PM HARBOR PILOT 12/11/2017 5:36 PM HARBOR PILOT Narrative [facility] - 12/11/2017 5:36 PM HARBOR PILOT This test detects only Legionella pneumophila serogroup 1 antigen. ?? Current interpretive data was last revised on 06. Abhijeet Boothe MD LAB MICROBIOLOGY - GENERAL OR DERABLES Final Result Performing Organization Address [facility] de Phone Number [facility] [place] [address] * Tacrolimus level trough (12/11/2017 3:56 PM HARBOR PILOT) Tacrolimus, trough 3.9 ng/mL [facility] Comment: Interpretive Data The therapeutic range for tacrolimus can vary by transplant organ type and sample timing but a trough range of 5 - 15 ng/mL is typical. Testing performed by liquid chromatography-tandem mass spectrometry (LC- MS/MS).This test was developed using an analyte specific reagent. Its performance characteristics were determined by the [facility] in a manner consistent with CLIA requirements. This test has not been cleared or approved by the U.S. Food and Drug Administration. Current interpretive data was last revised on 2016. Blood specimen (specimen) 12/11/2017 3:56 PM HARBOR PILOT 12/11/2017 5:12 PM HARBOR PILOT Narrative [facility] - 12/12/2017 4:06 AM HARBOR PILOT Sharon Eid MD LAB BLOOD ORDERABLES Final R esult Performing Organization Address [facility] de Phone Number [facility] [place] [address] * Glucose POC (12/11/2017 1:07 PM HARBOR PILOT) Glucose, POC 143 70 - 199 mg/dL [facility] Blood specimen (specimen) 12/11/2017 1:07 PM HARBOR PILOT 12/11/2017 1:07 PM HARBOR PILOT Narrative [facility] - 12/11/2017 1:39 PM HARBOR PILOT Francis Park MD PhD POINT OF CARE TEST ORDER SUBHA Final Result Performing Organization Address [facility] de Phone Number [facility] [place] [address] * Glucose POC (12/11/2017 9:24 AM HARBOR PILOT) Glucose, POC 140 70 - 199 mg/dL [facility] Blood specimen (specimen) 12/11/2017 9:24 AM HARBOR PILOT 12/11/2017 9:24 AM HARBOR PILOT Narrative [facility] - 12/11/2017 9:52 AM HARBOR PILOT Francis Park MD PhD POINT OF CARE TEST ORDER SUBHA Final Result Performing Organization Address [facility] Phone Number [facility] [place] [address] * (ABNORMAL) Hepatic function panel (12/11/2017 6:32 AM HARBOR PILOT) AST 52(H) 10 - 50 Units/L [facility] ALT 40 7 - 55 Units/L [facility] Alk phos 727(H) 40 - 130 Units/L [facility] Bilirubin, total 0.2 0.1 - 1.2 mg/dL [facility] Bilirubin, direct 0.1 0.1 - 0.3 mg/dL [facility] Protein, pl 7.7 6.5 - 8.5 g/dL [facility] Albumin 2.6(L) 3.5 - 5.0 g/dL [facility] Blood specimen (specimen) 12/11/2017 6:32 AM HARBOR PILOT 12/11/2017 7:29 AM HARBOR PILOT Narrative [facility] - 12/11/2017 8:13 AM HARBOR PILOT Sharon Eid MD LAB BLOOD ORDERABLES Final R esult Performing Organization Address [facility] Co de Phone Number [facility] [place] [address] * (ABNORMAL) Basic metabolic panel (12/11/2017 6:32 AM HARBOR PILOT) Pathologist [facility] Sodium 131(L) 135 - 145 mmol/L [facility] Potassium, pl 5.0(H) 3.3 - 4.9 mmol/L [facility] Chloride 98 97 - 110 mmol/L [facility] CO2 27 22 - 32 mmol/L [facility] BUN 10 8 - 25 mg/dL [facility] Glucose 116 70 - 199 mg/dL [facility] [...] 2017. Creatinine 0.70(L) 0.80 - 1.30 mg/dL [facility] Calcium 9.0 8.5 - 10.3 mg/dL [facility] Anion gap 6 2 - 15 mmol/L [facility] Blood specimen (specimen) 12/11/2017 6:32 AM HARBOR PILOT 12/11/2017 7:29 AM HARBOR PILOT Narrative [facility] - 12/11/2017 8:13 AM HARBOR PILOT us Alan Hurtado MD LAB BLOOD ORDERAB LES Final Result [facility] [place] [address] * (ABNORMAL) Morphology exam (12/11/2017 3:30 AM HARBOR PILOT) [facility] Neutrophils 18.3 % [facility] Lymphocytes 61.7 % [facility] Monos 13.0 % [facility] Eosinophils 6.1 % [facility] Basophil pct 0.9 % [facility] Platelet estimate Adequate [facility] Anisocytosis 3+(A) [facility] Macrocytes > 15/HPF(A) [facility] Target cells 3-7/HPF(A) [facility] WBC counted 115 Cells [facility] RBC morphology Present(A) [facility] Neutrophil abs 1.02(L) 1.70 - 6.50 K/cumm [facility] Lymphs, abs 3.43(H) 0.80 - 3.30 K/cumm [facility] Monos, abs 0.72 0.20 - 0.80 K/cumm [facility] Eosinophils, abs 0.34 0.00 - 0.50 K/cumm [facility] Basophils, abs 0.05 0.00 - 0.10 K/cumm [facility] Immature granulocyte, abs 0.00 0.00 - 0.10 K/cumm [facility] Blood specimen (specimen) 12/11/2017 3:30 AM HARBOR PILOT 12/11/2017 5:19 AM HARBOR PILOT Narrative [facility] - 12/11/2017 7:23 AM HARBOR PILOT Michael Perrin MD LAB BLOOD ORDERABLES Final Result [facility] [place] [address] * (ABNORMAL) Hepatic function panel (12/11/2017 3:30 AM HARBOR PILOT) AST See Comment 10 - 50 Units/L [facility] Comment:CRDT, Hemolyzed Spec imen CRDT, Hemolyzed Specimen CRDT, Hemolyzed Specimen CRDT, Hemolyzed Specimen ALT 43 7 - 55 Units/L [facility] Alk phos 710(H) 40 - 130 Units/L [facility] Comment:Hemolyzed; result ma y be falsely decreased. Bilirubin, total 0.3 0.1 - 1.2 mg/dL [facility] Bilirubin, direct See Comment 0.1 - 0.3 mg/dL [facility] Comment:CRDT; Hemolyzed spec imen Protein, pl 7.9 6.5 - 8.5 g/dL [facility] Albumin 2.5(L) 3.5 - 5.0 g/dL [facility] Blood specimen (specimen) 12/11/2017 3:30 AM HARBOR PILOT 12/11/2017 5:30 AM HARBOR PILOT Narrative [facility] - 12/11/2017 6:02 AM HARBOR PILOT us Michael Perrin MD LAB BLOOD ORDERABLES Final Result [facility] [place] [address] * (ABNORMAL) Basic metabolic panel (12/11/2017 3:30 AM HARBOR PILOT) Sodium 130(L) 135 - 145 mmol/L [facility] Potassium, pl See Comment 3.3 - 4.9 mmol/L [facility] Comment:CRDT; Grossly Hemoly zed sample; Unable to test. Chloride 98 97 - 110 mmol/L [facility] CO2 29 22 - 32 mmol/L [facility] BUN 11 8 - 25 mg/dL [facility] Glucose 108 70 - 199 mg/dL [facility] [...] 2017. Creatinine 0.68(L) 0.80 - 1.30 mg/dL [facility] Calcium 8.7 8.5 - 10.3 mg/dL [facility] Anion gap 3 2 - 15 mmol/L [facility] Blood specimen (specimen) 12/11/2017 3:30 AM HARBOR PILOT 12/11/2017 5:30 AM HARBOR PILOT Narrative [facility] - 12/11/2017 6:02 AM HARBOR PILOT Michael Perrin MD LAB BLOOD ORDERABLES Final Result Performing Organization Address City/[facility]/ZIP Co de Phone Number [facility] [place] [address] * Magnesium (12/11/2017 3:30 AM HARBOR PILOT) Magnesium 1.5 1.4 - 2.5 mg/dL [facility] Blood specimen (specimen) 12/11/2017 3:30 AM HARBOR PILOT 12/11/2017 5:30 AM HARBOR PILOT Narrative [facility] - 12/11/2017 6:02 AM HARBOR PILOT Michael Perrin MD LAB BLOOD ORDERABLES Final Result Performing Organization Address [facility] [place] [address] * Phosphorus (12/11/2017 3:30 AM HARBOR PILOT) Phosphorus, pl 3.3 2.3 - 4.5 mg/dL [facility] Comment:Hemolyzed; result ma y be falsely elevated. Blood specimen (specimen) 12/11/2017 3:30 AM HARBOR PILOT 12/11/2017 5:30 AM HARBOR PILOT Narrative [facility] - 12/11/2017 6:02 AM HARBOR PILOT Michael Perrin MD LAB BLOOD ORDERABLES Final Result Performing Organization Address City/[facility]/[place] [address] * (ABNORMAL) CBC without differential (12/11/2017 3:30 AM HARBOR PILOT) Pathologist [facility] WBC 5.56 3.80 - 9.90 K/cumm [facility] RBC 2.96(L) 4.30 - 5.80 M/cumm [facility] Hgb 10.1(L) 13.0 - 17.5 g/dL [facility] Hct 30.0(L) 38.9 - 50.3 % [facility] MCV 101.4(H) 81.3 - 96.4 fL [facility] MCH 34.1(H) 27.1 - 33.3 pg [facility] MCHC 33.7 32.3 - 35.7 g/dL [facility] RDW CV 15.1(H) 11.1 - 14.9 % [facility] RDW SD 55.7(H) 35.7 - 48.1 fL [facility] NRBC 0.0 0.0 - 0.2 % [facility] NRBC abs 0.00 0.00 - 0.01 K/cumm [facility] Plt 266 150 - 400 K/cumm [facility] MPV 11.4 9.1 - 12.3 fL [facility] Blood specimen (specimen) 12/11/2017 3:30 AM HARBOR PILOT 12/11/2017 5:19 AM HARBOR PILOT Narrative [facility] - 12/11/2017 5:41 AM HARBOR PILOT us Michael Perrin MD LAB BLOOD ORDERABLES Final Result [facility] [place] [address] * Glucose POC (12/10/2017 8:53 PM HARBOR PILOT) Pathologist [facility] Glucose, POC 76 70 - 199 mg/dL [facility] Blood specimen (specimen) 12/10/2017 8:53 PM HARBOR PILOT 12/10/2017 8:53 PM HARBOR PILOT Narrative [facility] - 12/10/2017 9:05 PM HARBOR PILOT us Francis Park MD PhD POINT OF CARE TEST ORDER SUBHA Final Result Performing Organization Address [facility] [place] [address] * Tacrolimus level, random (12/10/2017 8:27 PM HARBOR PILOT) Pathologist [facility] Tacrolimus, random 4.2 ng/mL [facility] Comment: Interpretive Data Testing performed by liquid chromatography-tandem mass spectrometry (LC- MS/MS).This test was developed using an analyte specific reagent. Its performance characteristics were determined by the [facility] in a manner consistent with CLIA requirements. ??This test has not been cleared or approved by the U.S. Food and Drug Administration. Current interpretive data was last revised on 2016. Blood specimen (specimen) 12/10/2017 8:27 PM HARBOR PILOT 12/10/2017 9:08 PM HARBOR PILOT Narrative [facility] - 12/11/2017 3:56 AM HARBOR PILOT Alan Hurtado MD LAB BLOOD ORDERAB LES Final Result Performing Organization Address [facility] [place] [address] * (ABNORMAL) Glucose POC (12/10/2017 4:52 PM HARBOR PILOT) Glucose, POC 223(H) 70 - 199 mg/dL [facility] Blood specimen (specimen) 12/10/2017 4:52 PM HARBOR PILOT 12/10/2017 4:52 PM HARBOR PILOT Narrative [facility] - 12/10/2017 5:04 PM HARBOR PILOT Francis Park MD PhD POINT OF CARE TEST ORDER SUBHA Final Result Performing Organization Address City/[facility] [place] [address] * Glucose POC (12/10/2017 11:38 AM HARBOR PILOT) Glucose, POC 169 70 - 199 mg/dL [facility] Blood specimen (specimen) 12/10/2017 11:38 AM HARBOR PILOT 12/10/2017 11:38 AM HARBOR PILOT Narrative [facility] - 12/10/2017 11:58 AM HARBOR PILOT Francis Park MD PhD POINT OF CARE TEST ORDER SUBHA Final Result Performing Organization Address City/[facility]/ZIP Co de Phone Number [facility] [place] [address] * Glucose POC (12/10/2017 10:17 AM HARBOR PILOT) [facility] Glucose, POC 133 70 - 199 mg/dL [facility] Blood specimen (specimen) 12/10/2017 10:17 AM HARBOR PILOT 12/10/2017 10:17 AM HARBOR PILOT Narrative [facility] - 12/10/2017 10:28 AM HARBOR PILOT Francis Park MD PhD POINT OF CARE TEST ORDER SUBHA Final Result Performing Organization Address [facility] Co de Phone Number [facility] [place] [address] * (ABNORMAL) Morphology exam (12/10/2017 3:02 AM HARBOR PILOT) [facility] Neutrophils 31.6 % [facility] Lymphocytes 49.1 % [facility] Monos 16.7 % [facility] Eosinophils 1.7 % [facility] Basophil pct 0.9 % [facility] Platelet estimate Adequate [facility] Anisocytosis 3+(A) [facility] Macrocytes > 15/HPF(A) [facility] Target cells > 15/HPF(A) [facility] WBC counted 114 Cells [facility] RBC morphology Present(A) [facility] Neutrophil abs 2.01 1.70 - 6.50 K/cumm [facility] Lymphs, abs 3.12 0.80 - 3.30 K/cumm [facility] Monos, abs 1.06(H) 0.20 - 0.80 K/cumm [facility] Eosinophils, abs 0.11 0.00 - 0.50 K/cumm [facility] Basophils, abs 0.06 0.00 - 0.10 K/cumm [facility] Immature granulocyte, abs 0.00 0.00 - 0.10 K/cumm [facility] Blood specimen (specimen) 12/10/2017 3:02 AM HARBOR PILOT 12/10/2017 5:20 AM HARBOR PILOT Narrative [facility] - 12/10/2017 6:14 AM HARBOR PILOT Michael Perrin MD LAB BLOOD ORDERABLES Final Result Performing Organization Address [facility]/ZIP Co de Phone Number [facility] [place] [address] * (ABNORMAL) Hepatic function panel (12/10/2017 3:02 AM HARBOR PILOT) AST 52(H) 10 - 50 Units/L [facility] ALT 35 7 - 55 Units/L [facility] Alk phos 689(H) 40 - 130 Units/L [facility] Bilirubin, total 0.3 0.1 - 1.2 mg/dL [facility] Bilirubin, direct <0.2 0.1 - 0.3 mg/dL [facility] Protein, pl 7.1 6.5 - 8.5 g/dL [facility] Albumin 2.4(L) 3.5 - 5.0 g/dL [facility] Blood specimen (specimen) 12/10/2017 3:02 AM HARBOR PILOT 12/10/2017 5:43 AM HARBOR PILOT Narrative [facility] - 12/10/2017 6:16 AM HARBOR PILOT Michael Perrin MD LAB BLOOD ORDERABLES Final Result Performing Organization Address City/[facility]/ZIP Co de Phone Number [facility] [place] [address] * (ABNORMAL) Basic metabolic panel (12/10/2017 3:02 AM HARBOR PILOT) Sodium 134(L) 135 - 145 mmol/L [facility] Potassium, pl 5.3(H) 3.3 - 4.9 mmol/L [facility] Chloride 100 97 - 110 mmol/L [facility] CO2 30 22 - 32 mmol/L [facility] BUN 12 8 - 25 mg/dL [facility] Glucose 106 70 - 199 mg/dL [facility] [...] 2017. Creatinine 0.83 0.80 - 1.30 mg/dL [facility] Calcium 8.4(L) 8.5 - 10.3 mg/dL [facility] Anion gap 4 2 - 15 mmol/L [facility] Blood specimen (specimen) 12/10/2017 3:02 AM HARBOR PILOT 12/10/2017 5:43 AM HARBOR PILOT Narrative [facility] - 12/10/2017 6:07 AM HARBOR PILOT us Michael Perrin MD LAB BLOOD ORDERABLES Final Result [facility] [place] [address] * Magnesium (12/10/2017 3:02 AM HARBOR PILOT) Magnesium 1.5 1.4 - 2.5 mg/dL [facility] Blood specimen (specimen) 12/10/2017 3:02 AM HARBOR PILOT 12/10/2017 5:43 AM HARBOR PILOT Narrative [facility] - 12/10/2017 6:07 AM HARBOR PILOT Michael Perrin MD LAB BLOOD ORDERABLES Final Result Performing Organization Address [facility] Co de Phone Number [facility] [place] [address] * Phosphorus (12/10/2017 3:02 AM HARBOR PILOT) [facility] Phosphorus, pl 3.4 2.3 - 4.5 mg/dL [facility] Blood specimen (specimen) 12/10/2017 3:02 AM HARBOR PILOT 12/10/2017 5:43 AM HARBOR PILOT Narrative [facility] - 12/10/2017 6:07 AM HARBOR PILOT Michael Perrin MD LAB BLOOD ORDERABLES Final Result Performing Organization Address [facility] Co de Phone Number [facility] [place] [address] * (ABNORMAL) CBC without differential (12/10/2017 3:02 AM HARBOR PILOT) [facility] WBC 6.35 3.80 - 9.90 K/cumm [facility] RBC 2.76(L) 4.30 - 5.80 M/cumm [facility] Hgb 9.3(L) 13.0 - 17.5 g/dL [facility] Hct 27.9(L) 38.9 - 50.3 % [facility] MCV 101.1(H) 81.3 - 96.4 fL [facility] MCH 33.7(H) 27.1 - 33.3 pg [facility] MCHC 33.3 32.3 - 35.7 g/dL [facility] RDW CV 15.3(H) 11.1 - 14.9 % [facility] RDW SD 56.0(H) 35.7 - 48.1 fL [facility] NRBC 0.0 0.0 - 0.2 % [facility] NRBC abs 0.00 0.00 - 0.01 K/cumm [facility] Plt 254 150 - 400 K/cumm [facility] MPV 11.0 9.1 - 12.3 fL [facility] Blood specimen (specimen) 12/10/2017 3:02 AM HARBOR PILOT 12/10/2017 5:20 AM HARBOR PILOT Narrative [facility] - 12/10/2017 5:32 AM HARBOR PILOT us Michael Perrin MD LAB BLOOD ORDERABLES Final Result Performing Organization Address City/[facility]/ZIP Co de Phone Number [facility] [place] [address] * Blood culture (12/10/2017 1:18 AM HARBOR PILOT) Report Final Report: No growth [facility] Blood specimen (specimen) (Antecubital, right) 12/10/2017 1:18 AM HARBOR PILOT 12/10/2017 3:30 AM HARBOR PILOT Narrative [facility] - 12/10/2017 4:00 PM HARBOR PILOT Blood cultures are incubated for five days on a continuously monitored blood culture system. ??The first report of a negative culture is issued within 24 hours of receipt of the specimen in the laboratory. ??Positive culture results are reported as soon as they are detected. ??For blood cultures with gram-positive cocci, a rapid molecular test for organism identification may be performed using the [employer] Nan[employer] Gram Positive Blood Culture Assay. ??The Nanosphere assay detects microbial DNA in positive blood culture broth via hybridization of target DNA to capture oligonucleotides on a microarray. ??This assay has been cleared by the [place] Food and Drug Administration and its performance characteristics have been verified by the [facility]. Current Interpretive Data was last revised on 2014. us Domingo Gan MD LAB MICROBIOLOGY - GENERAL ORDER SUBHA Final Result Performing Organization Address City/[facility]/ZIP Co de Phone Number [facility] [place] [address] * Blood culture (12/10/2017 1:18 AM HARBOR PILOT) Report Final Report: No growth [facility] Blood specimen (specimen) (Antecubital, left) 12/10/2017 1:18 AM HARBOR PILOT 12/10/2017 3:30 AM HARBOR PILOT Narrative [facility] - 12/10/2017 4:00 PM HARBOR PILOT Blood cultures are incubated for five days on a continuously monitored blood culture system. ??The first report of a negative culture is issued within 24 hours of receipt of the specimen in the laboratory. ??Positive culture results are reported as soon as they are detected. ??For blood cultures with gram-positive cocci, a rapid molecular test for organism identification may be performed using the [employer] Nan[employer] Gram Positive Blood Culture Assay. ??The Nanosphere assay detects microbial DNA in positive blood culture broth via hybridization of target DNA to capture oligonucleotides on a microarray. ??This assay has been cleared by the [place] Food and Drug Administration and its performance characteristics have been verified by the [facility]. Current Interpretive Data was last revised on 2014. us Domingo Gan MD LAB MICROBIOLOGY - GENERAL ORDER SUBHA Final Result [facility] [place] [address] * (ABNORMAL) Glucose POC (12/09/2017 9:12 PM HARBOR PILOT) Pathologist [facility] Glucose, POC 203(H) 70 - 199 mg/dL [facility] Blood specimen (specimen) 12/09/2017 9:12 PM HARBOR PILOT 12/09/2017 9:12 PM HARBOR PILOT Narrative [facility] - 12/09/2017 9:24 PM HARBOR PILOT us Francis Park MD PhD POINT OF CARE TEST ORDER SUBHA [place] [address] * Glucose POC (12/09/2017 6:52 PM HARBOR PILOT) Glucose, POC 151 70 - 199 mg/dL [facility] Blood specimen (specimen) 12/09/2017 6:52 PM HARBOR PILOT 12/09/2017 6:52 PM HARBOR PILOT Narrative [facility] - 12/09/2017 7:37 PM HARBOR PILOT Francis Park MD PhD POINT OF CARE TEST ORDER SUBHA Final Result Performing Organization Address City/[facility]/[place] [address] * (ABNORMAL) Glucose POC (12/09/2017 3:51 PM HARBOR PILOT) Glucose, POC 247(H) 70 - 199 mg/dL [facility] Blood specimen (specimen) 12/09/2017 3:51 PM HARBOR PILOT 12/09/2017 3:51 PM HARBOR PILOT Narrative [facility] - 12/09/2017 4:14 PM HARBOR PILOT us Francis Park MD PhD POINT OF CARE TEST ORDER SUBHA Final Result Performing Organization Address City/[facility] [place] [address] * CT Chest WO Contrast (12/09/2017 1:28 PM HARBOR PILOT) Anatomical Region Laterality Modality Body N/A Computed Tomogra phy 12/09/2017 1:28 PM HARBOR PILOT Narrative 12/09/2017 1:36 PM HARBOR PILOT ZACH LAURENT M.D. FINAL REPORT ACC# ??Date Time ??Exam [id number] Dec 09, 2017 07:28:[address] Chest without contrast EXAMINATION: ??CT CHEST [...] LAURENT M.D. on Dec 09 2017 ??7:34A [id number] LAURENT M.D. FINAL REPORT Attending: ??MARCELINA, ??SOURAV Requesting: ??CELESTE, ??SHARON Requesting Fax: ?? Attending Fax: ?? Attending ID: ??[id number] Requesting ID: ??[id number] Report To 1 ID: ??[id number] ? Report To 1 Name: ??, ?? Report To 1 FAX: ?? NextGen Order #: ?? Procedure Note Miscellaneous, Not In File - 12/09/2017 ZACH LAURENT M.D. FINAL REPORT ACC# Date Time Exam [id number] Dec 09, 2017 07:28:[id number] Chest without contrast EXAMINATION: CT CHEST [...] LAURENT M.D. on Dec 09 2017 7:34A [id number] LAURENT M.D. FINAL REPORT Attending: SOURAV CALLEJAS Requesting: SHARON EID Requesting Fax: Attending Fax: Attending ID: [id number] Requesting ID: [id number] Report To 1 ID: [id number] Report To 1 Name: , Report To 1 FAX: NextGen Order #: us Sharon Eid MD IMG CT PROCEDURES Final Resu lt * Glucose POC (12/09/2017 8:54 AM HARBOR PILOT) Pathologist [facility] Glucose, POC 149 70 - 199 mg/dL [facility] Blood specimen (specimen) 12/09/2017 8:54 AM HARBOR PILOT 12/09/2017 8:54 AM HARBOR PILOT Narrative [facility] - 12/09/2017 9:21 AM HARBOR PILOT Francis Park MD PhD POINT OF CARE TEST ORDER SUBHA Final Result Performing Organization Address [facility] de Phone Number [facility] [place] [address] * CMV DNA QN, PCR (12/09/2017 4:17 AM HARBOR PILOT) [facility] CMV DNA Not Detected [facility] Comment: Interpretive Data: The quantifiable range of this assay is 137 IUnits/mL to 9,100,000 IUnits/mL (2.14 log IUnits/mL to 6.96 log IUnits/mL). Testing was performed by the MICHEL AmpliPrep/MICHEL TaqMan CMV Test ([employer] Testing performed at [facility] Current interpretive data was last revised on 17. Blood specimen (specimen) 12/09/2017 4:17 AM HARBOR PILOT 12/09/2017 1:45 PM HARBOR PILOT Narrative [facility] - 12/09/2017 7:55 PM HARBOR PILOT us Abhijeet Jose LAB MICROBIOLOGY - GENERAL ORDERABLES Final Result Performing Organization Address [facility] Co de Phone Number [facility] [place] [address] * Type and screen (12/09/2017 4:17 AM HARBOR PILOT) Pathologist [facility] ABO Rh A Positive [facility] Ursula, indirect Negative [facility] Blood specimen (specimen) 12/09/2017 4:17 AM HARBOR PILOT 12/09/2017 5:52 AM HARBOR PILOT Narrative [facility] - 12/09/2017 9:43 AM HARBOR PILOT Michael Perrin MD LAB BLOOD BANK TEST ORDERAB LES Final Result Performing Organization Address [facility] de Phone Number [facility] [place] [address] * Tacrolimus level, random (12/09/2017 4:17 AM HARBOR PILOT) Pathologist [facility] Tacrolimus, random 10.4 ng/mL [facility] Comment: Interpretive Data Testing performed by liquid chromatography-tandem mass spectrometry (LC- MS/MS).This test was developed using an analyte specific reagent. Its performance characteristics were determined by the [facility] in a manner consistent with CLIA requirements. ??This test has not been cleared or approved by the U.S. Food and Drug Administration. Current interpretive data was last revised on 2016. Blood specimen (specimen) 12/09/2017 4:17 AM HARBOR PILOT 12/09/2017 5:28 AM HARBOR PILOT Narrative [facility] - 12/09/2017 7:58 AM HARBOR PILOT Sharon Eid MD LAB BLOOD ORDERABLES Final R esult Performing Organization Address [facility] de Phone Number [facility] [place] [address] * Protime-INR (12/09/2017 4:17 AM HARBOR PILOT) Pathologist [facility] PT 12.6 8.5 - 13.0 sec [facility] INR 1.17 0.80 - 1.21 [facility] Comment: Interpretive Data Inpatient therapeutic ranges* Atrial fibrillation ?2.0-3.0 INR Venous thrombo-embolism ?2.0-3.0 INR Bioprosthetic heart valve ?* Mechanical heart valve, bileaflet or tilting disk,aortic position ? 2.0-3.0 INR All other,or bileaflet or tilting disk, in mitral position ? 2.5-3.5 INR *See the pharmacy resource directory (PHRED) for an updated copy of the Tool Book at [email or web address] Current Interpretive Data was last revised 2012. Blood specimen (specimen) 12/09/2017 4:17 AM HARBOR PILOT 12/09/2017 6:06 AM HARBOR PILOT Narrative [facility] - 12/09/2017 6:32 AM HARBOR PILOT Michael Perrin MD LAB BLOOD ORDERABLES Final Result [facility] [place] [address] * (ABNORMAL) aPTT (12/09/2017 4:17 AM HARBOR PILOT) aPTT 40.0(H) 25.0 - 37.0 sec [facility] Comment: Interpretive Data Therapeutic heparin range:60.0 - 94.0 sec based on correlation with therapeutic heparin activity range of 0.3 -0.7 Units/mL. Current interpretive data was last revised on 2011. Blood specimen (specimen) 12/09/2017 4:17 AM HARBOR PILOT 12/09/2017 6:06 AM HARBOR PILOT Narrative [facility] - 12/09/2017 6:31 AM HARBOR PILOT us Michael Perrin MD LAB BLOOD ORDERABLES Final Result [facility] [place] [address] * (ABNORMAL) Morphology exam (12/09/2017 4:17 AM HARBOR PILOT) Neutrophils 47.3 % [facility] Lymphocytes 38.4 % [facility] Monos 10.7 % [facility] Eosinophils 2.7 % [facility] Basophil pct 0.9 % [facility] Platelet estimate Adequate [facility] Anisocytosis 3+(A) [facility] Macrocytes > 15/HPF(A) [facility] WBC counted 112 Cells [facility] RBC morphology Present(A) [facility] Neutrophil abs 3.53 1.70 - 6.50 K/cumm [facility] Lymphs, abs 2.86 0.80 - 3.30 K/cumm [facility] Monos, abs 0.80 0.20 - 0.80 K/cumm [facility] Eosinophils, abs 0.20 0.00 - 0.50 K/cumm [facility] Basophils, abs 0.07 0.00 - 0.10 K/cumm [facility] Immature granulocyte, abs 0.00 0.00 - 0.10 K/cumm [facility] Blood specimen (specimen) 12/09/2017 4:17 AM HARBOR PILOT 12/09/2017 5:27 AM HARBOR PILOT Narrative [facility] - 12/09/2017 6:26 AM HARBOR PILOT us Michael Perrin MD LAB BLOOD ORDERABLES Final Result [facility] [place] [address] * (ABNORMAL) Comprehensive metabolic panel (12/09/2017 4:17 AM HARBOR PILOT) Sodium 132(L) 135 - 145 mmol/L [facility] Potassium, pl 5.2(H) 3.3 - 4.9 mmol/L [facility] CO2 29 22 - 32 mmol/L [facility] BUN 11 8 - 25 mg/dL [facility] Glucose 130 70 - 199 mg/dL [facility] [...] 2017. Creatinine 0.76(L) 0.80 - 1.30 mg/dL [facility] Calcium 8.8 8.5 - 10.3 mg/dL [facility] Chloride 98 97 - 110 mmol/L [facility] Albumin 2.4(L) 3.5 - 5.0 g/dL [facility] AST 51(H) 10 - 50 Units/L [facility] ALT 37 7 - 55 Units/L [facility] Alk phos 748(H) 40 - 130 Units/L [facility] Bilirubin, total 0.3 0.1 - 1.2 mg/dL [facility] Protein, pl 7.7 6.5 - 8.5 g/dL [facility] Anion gap 5 2 - 15 mmol/L [facility] Blood specimen (specimen) 12/09/2017 4:17 AM HARBOR PILOT 12/09/2017 5:32 AM HARBOR PILOT Narrative [facility] - 12/09/2017 6:05 AM HARBOR PILOT us Michael Perrin MD LAB BLOOD ORDERABLES Final Result [facility] [place] [address] * Magnesium (12/09/2017 4:17 AM HARBOR PILOT) Magnesium 1.6 1.4 - 2.5 mg/dL [facility] Blood specimen (specimen) 12/09/2017 4:17 AM HARBOR PILOT 12/09/2017 5:32 AM HARBOR PILOT Narrative [facility] - 12/09/2017 6:05 AM HARBOR PILOT Michael Perrin MD LAB BLOOD ORDERABLES Final Result [facility] [place] [address] * Phosphorus (12/09/2017 4:17 AM HARBOR PILOT) [facility] Phosphorus, pl 3.9 2.3 - 4.5 mg/dL [facility] Blood specimen (specimen) 12/09/2017 4:17 AM HARBOR PILOT 12/09/2017 5:32 AM HARBOR PILOT Narrative [facility] - 12/09/2017 6:05 AM HARBOR PILOT Michael Perrin MD LAB BLOOD ORDERABLES Final Result Performing Organization Address [facility] Co de Phone Number [facility] [place] [address] * Lactate dehydrogenase (LD) (12/09/2017 4:17 AM HARBOR PILOT) [facility] Lactate dehydrogenase (LDH) 165 100 - 250 Units/L [facility] Blood specimen (specimen) 12/09/2017 4:17 AM HARBOR PILOT 12/09/2017 5:32 AM HARBOR PILOT Narrative [facility] - 12/09/2017 6:05 AM HARBOR PILOT Michael Perrin MD LAB BLOOD ORDERABLES Final Result Performing Organization Address City/[facility]/ZIP Co de Phone Number [facility] [place] [address] * (ABNORMAL) CBC without differential (12/09/2017 4:17 AM HARBOR PILOT) [facility] Signature WBC 7.46 3.80 - 9.90 K/cumm [facility] RBC 2.99(L) 4.30 - 5.80 M/cumm [facility] Hgb 10.1(L) 13.0 - 17.5 g/dL [facility] Hct 30.0(L) 38.9 - 50.3 % [facility] MCV 100.3(H) 81.3 - 96.4 fL [facility] MCH 33.8(H) 27.1 - 33.3 pg [facility] MCHC 33.7 32.3 - 35.7 g/dL [facility] RDW CV 15.2(H) 11.1 - 14.9 % [facility] RDW SD 56.1(H) 35.7 - 48.1 fL [facility] NRBC 0.0 0.0 - 0.2 % [facility] NRBC abs 0.00 0.00 - 0.01 K/cumm [facility] Plt 260 150 - 400 K/cumm [facility] MPV 11.0 9.1 - 12.3 fL [facility] Blood specimen (specimen) 12/09/2017 4:17 AM HARBOR PILOT 12/09/2017 5:27 AM HARBOR PILOT Narrative [facility] - 12/09/2017 5:38 AM HARBOR PILOT us Michael Perrin MD LAB BLOOD ORDERABLES Final Result [facility] Department [place] [address] * US Abdomen Limited (12/09/2017 1:27 AM HARBOR PILOT) Anatomical Region Laterality Modality Abdomen N/A Ultrasound 12/09/2017 1:27 AM HARBOR PILOT Narrative 12/09/2017 1:15 PM HARBOR PILOT ABHIJEET CASTILLO M.D. OLGA FIORE M.D. FINAL REPORT The radiology attending physician has personally reviewed this study, and has reviewed and/or edited this written report and agrees with it. ACC# ??Date Time ??Exam [id number] Dec 08, 2017 19:27:00 [id number] [employer] [facility] [employer] EXAMINATION: ??LIMITED ABDOMINAL SONOGRAM [...] CASTILLO M.D. on Dec 09 2017 ??7:13A [id number] PEREYRA M.D. FINAL REPORT The radiology attending physician has personally reviewed this study, and has reviewed and/or edited this written report and agrees with it. Attending: ??MARCELINA, ??SOURAV Requesting: ??CELESTE, ??SHARON Requesting Fax: ?? Attending Fax: ?? Attending ID: ??[id number] Requesting ID: ??[id number] Report To 1 ID: ??[id number] ? Report To 1 Name: ??, ?? Report To 1 FAX: ?? NextGen Order #: ?? Procedure Note Miscellaneous, Not In File - 12/09/2017 Toño PEREYRA M.D. FINAL REPORT The radiology attending physician has personally reviewed this study, and has reviewed and/or edited this written report and agrees with it. ACC# Date Time Exam [id number] Dec 08, 2017 19:27:00 [id number] [employer] EXAMINATION: LIMITED ABDOMINAL SONOGRAM [...] CASTILLO M.D. on Dec 09 2017 7:13A [id number] PEREYRA M.D. FINAL REPORT The radiology attending physician has personally reviewed this study, and has reviewed and/or edited this written report and agrees with it. Attending: SOURAV CALLEJAS Requesting: SHARON EID Requesting Fax: Attending Fax: Attending ID: [id number] Requesting ID: [id number] Report To 1 ID: [id number] Report To 1 Name: , Report To 1 FAX: NextGen Order #: Sharon Eid MD [facility] US PROCEDURES Final Resu lt * (ABNORMAL) Glucose POC (12/08/2017 9:46 PM HARBOR PILOT) Glucose, POC 249(H) 70 - 199 mg/dL [facility] Blood specimen (specimen) 12/08/2017 9:46 PM HARBOR PILOT 12/08/2017 9:46 PM HARBOR PILOT Narrative [facility] - 12/08/2017 10:15 PM HARBOR PILOT Francis Park MD PhD POINT OF CARE TEST ORDER SUBHA Final Result Performing Organization Address [facility] Co de Phone Number [facility] [place] [address] * (ABNORMAL) Glucose POC (12/08/2017 5:33 PM HARBOR PILOT) Glucose, POC 211(H) 70 - 199 mg/dL [facility] Blood specimen (specimen) 12/08/2017 5:33 PM HARBOR PILOT 12/08/2017 5:33 PM HARBOR PILOT Narrative [facility] - 12/08/2017 5:58 PM HARBOR PILOT Francis Park MD PhD POINT OF CARE TEST ORDER SUBHA Final Result Performing Organization Address City/[facility]/ZIP Co de Phone Number [facility] [place] [address] * Glucose POC (12/08/2017 2:27 PM HARBOR PILOT) Glucose, POC 145 70 - 199 mg/dL [facility] Blood specimen (specimen) 12/08/2017 2:27 PM HARBOR PILOT 12/08/2017 2:27 PM HARBOR PILOT Narrative [facility] - 12/08/2017 2:52 PM HARBOR PILOT Francis Park MD PhD POINT OF CARE TEST ORDER SUBHA Final Result Performing Organization Address City/[facility] Co de Phone Number [facility] [place] [address] * Glucose POC (12/08/2017 9:44 AM HARBOR PILOT) Glucose, POC 154 70 - 199 mg/dL [facility] Blood specimen (specimen) 12/08/2017 9:44 AM HARBOR PILOT 12/08/2017 9:44 AM HARBOR PILOT [facility] 12/08/2017 10:06 AM HARBOR PILOT Francis Park MD PhD POINT OF CARE TEST ORDER SUBHA Final Result Performing Organization Address [facility] [place] [address] * Tacrolimus level, random (12/08/2017 9:01 AM HARBOR PILOT) Tacrolimus, random 10.6 ng/mL [facility] Comment: Interpretive Data Testing performed by liquid chromatography-tandem mass spectrometry (LC- MS/MS).This test was developed using an analyte specific reagent. Its performance characteristics were determined by the [facility] in a manner consistent with CLIA requirements. ??This test has not been cleared or approved by the U.S. Food and Drug Administration. Current interpretive data was last revised on 2016. Blood specimen (specimen) 12/08/2017 9:01 AM HARBOR PILOT 12/08/2017 9:28 AM HARBOR PILOT Narrative [facility] - 12/08/2017 1:17 PM HARBOR PILOT Sharon Eid MD LAB BLOOD ORDERABLES Final R esult Performing Organization Address City/[facility] Co de Phone Number [facility] [place] [address] * Potassium, Whole Blood (12/08/2017 9:01 AM HARBOR PILOT) [facility] Potassium, bld 4.4 3.3 - 4.9 mmol/L [facility] Blood specimen (specimen) 12/08/2017 9:01 AM HARBOR PILOT 12/08/2017 9:17 AM HARBOR PILOT Narrative [facility] - 12/08/2017 9:20 AM HARBOR PILOT us Sharon Eid MD LAB BLOOD ORDERABLES Final R esult Performing Organization Address City/[facility]/ZIP Co de Phone Number [facility] [place] [address] * (ABNORMAL) Gamma GT (12/08/2017 3:42 AM HARBOR PILOT) [facility] GGT 489(H) 10 - 50 Units/L [facility] Blood specimen (specimen) 12/08/2017 3:42 AM HARBOR PILOT 12/08/2017 5:01 AM HARBOR PILOT Narrative [facility] - 12/08/2017 4:14 PM HARBOR PILOT us Michael Perrin MD LAB BLOOD ORDERABLES Final Result Performing Organization Address [facility]/ZIP Co de Phone Number [facility] [place] [address] * (ABNORMAL) Morphology exam (12/08/2017 3:42 AM HARBOR PILOT) [facility] Neutrophils 45.2 % [facility] Lymphocytes 32.2 % [facility] Monos 19.1 % [facility] Eosinophils 0.9 % [facility] Basophil pct 2.6 % [facility] Platelet estimate Adequate [facility] Anisocytosis 3+(A) [facility] Macrocytes > 15/HPF(A) [facility] WBC counted 115 Cells [facility] RBC morphology Present(A) [facility] Neutrophil abs 3.73 1.70 - 6.50 K/cumm [facility] Lymphs, abs 2.66 0.80 - 3.30 K/cumm [facility] Monos, abs 1.58(H) 0.20 - 0.80 K/cumm [facility] Eosinophils, abs 0.07 0.00 - 0.50 K/cumm [facility] Basophils, abs 0.21(H) 0.00 - 0.10 K/cumm [facility] Immature granulocyte, abs 0.00 0.00 - 0.10 K/cumm [facility] Blood specimen (specimen) 12/08/2017 3:42 AM HARBOR PILOT 12/08/2017 4:59 AM HARBOR PILOT Narrative [facility] - 12/08/2017 6:07 AM HARBOR PILOT Michael Perrin MD LAB BLOOD ORDERABLES Final Result Performing Organization Address [facility] Co de Phone Number [facility] [place] [address] * (ABNORMAL) Hepatic function panel (12/08/2017 3:42 AM HARBOR PILOT) AST 56(H) 10 - 50 Units/L [facility] ALT 36 7 - 55 Units/L [facility] Alk phos 711(H) 40 - 130 Units/L [facility] Bilirubin, total 0.4 0.1 - 1.2 mg/dL [facility] Bilirubin, direct 0.2 0.1 - 0.3 mg/dL [facility] Protein, pl 7.3 6.5 - 8.5 g/dL [facility] Albumin 2.5(L) 3.5 - 5.0 g/dL [facility] Blood specimen (specimen) 12/08/2017 3:42 AM HARBOR PILOT 12/08/2017 5:01 AM HARBOR PILOT [facility]ative [facility] - 12/08/2017 5:33 AM HARBOR PILOT Michael Perrin MD LAB BLOOD ORDERABLES Final Result Performing Organization Address City/[facility]/ZIP Co de Phone Number [facility] [place] [address] * (ABNORMAL) Basic metabolic panel (12/08/2017 3:42 AM HARBOR PILOT) Sodium 134(L) 135 - 145 mmol/L [facility] Potassium, pl 5.6(H) 3.3 - 4.9 mmol/L [facility] Chloride 99 97 - 110 mmol/L [facility] CO2 29 22 - 32 mmol/L [facility] BUN 9 8 - 25 mg/dL [facility] Glucose 117 70 - 199 mg/dL [facility] [...] 2017. Creatinine 0.83 0.80 - 1.30 mg/dL [facility] Calcium 8.6 8.5 - 10.3 mg/dL [facility] Anion gap 6 2 - 15 mmol/L [facility] Blood specimen (specimen) 12/08/2017 3:42 AM HARBOR PILOT 12/08/2017 5:01 AM HARBOR PILOT Narrative [facility] - 12/08/2017 5:33 AM HARBOR PILOT us Michael Perrin MD LAB BLOOD ORDERABLES Final Result [facility] [place] [address] * Magnesium (12/08/2017 3:42 AM HARBOR PILOT) Magnesium 1.4 1.4 - 2.5 mg/dL [facility] Blood specimen (specimen) 12/08/2017 3:42 AM HARBOR PILOT 12/08/2017 5:01 AM HARBOR PILOT Narrative [facility] - 12/08/2017 5:33 AM HARBOR PILOT Michael Perrin MD LAB BLOOD ORDERABLES Final Result Performing Organization Address City/[facility]/ZIP Co de Phone Number [facility] [place] [address] * Phosphorus (12/08/2017 3:42 AM HARBOR PILOT) [facility] Phosphorus, pl 3.9 2.3 - 4.5 mg/dL [facility] Blood specimen (specimen) 12/08/2017 3:42 AM HARBOR PILOT 12/08/2017 5:01 AM HARBOR PILOT Narrative [facility] - 12/08/2017 5:33 AM HARBOR PILOT Michael Perrin MD LAB BLOOD ORDERABLES Final Result Performing Organization Address [facility] Co de Phone Number [facility] [place] [address] * (ABNORMAL) CBC without differential (12/08/2017 3:42 AM HARBOR PILOT) [facility] WBC 8.26 3.80 - 9.90 K/cumm [facility] RBC 2.89(L) 4.30 - 5.80 M/cumm [facility] Hgb 9.8(L) 13.0 - 17.5 g/dL [facility] Hct 28.9(L) 38.9 - 50.3 % [facility] MCV 100.0(H) 81.3 - 96.4 fL [facility] MCH 33.9(H) 27.1 - 33.3 pg [facility] MCHC 33.9 32.3 - 35.7 g/dL [facility] RDW CV 15.5(H) 11.1 - 14.9 % [facility] RDW SD 57.1(H) 35.7 - 48.1 fL [facility] NRBC 0.0 0.0 - 0.2 % [facility] NRBC abs 0.00 0.00 - 0.01 K/cumm [facility] Plt 244 150 - 400 K/cumm [facility] MPV 11.2 9.1 - 12.3 fL [facility] Blood specimen (specimen) 12/08/2017 3:42 AM HARBOR PILOT 12/08/2017 4:59 AM HARBOR PILOT Narrative [facility] - 12/08/2017 5:07 AM HARBOR PILOT us Michael Perrin MD LAB BLOOD ORDERABLES Final Result Performing Organization Address City/[facility] Co de Phone Number [facility] [place] [address] * Glucose POC (12/07/2017 9:46 PM HARBOR PILOT) Glucose, POC 176 70 - 199 mg/dL [facility] Blood specimen (specimen) 12/07/2017 9:46 PM HARBOR PILOT 12/07/2017 9:46 PM HARBOR PILOT Narrative [facility] - 12/07/2017 9:57 PM HARBOR PILOT us Francis Park MD PhD POINT OF CARE TEST ORDER SUBHA Final Result Performing Organization Address City/[facility] Co de Phone Number [facility] [place] [address] * Glucose POC (12/07/2017 7:12 PM HARBOR PILOT) Glucose, POC 163 70 - 199 mg/dL [facility] Blood specimen (specimen) 12/07/2017 7:12 PM HARBOR PILOT 12/07/2017 7:12 PM HARBOR PILOT Narrative [facility] - 12/07/2017 7:33 PM HARBOR PILOT us Francis Park MD PhD POINT OF CARE TEST ORDER SUBHA Final Result Performing Organization Address City/[facility] Co de Phone Number [facility] [place] [address] * Glucose POC (12/07/2017 2:12 PM HARBOR PILOT) [facility] [facility] Glucose, POC 158 70 - 199 mg/dL [facility] Glucose comment 1 RN Notified [facility] Blood specimen (specimen) 12/07/2017 2:12 PM HARBOR PILOT 12/07/2017 2:12 PM HARBOR PILOT Narrative [facility] - 12/07/2017 2:29 PM HARBOR PILOT Francis Park MD PhD POINT OF CARE TEST ORDER SUBHA Final Result Performing Organization Address [facility] [place] [address] * Tacrolimus level, random (12/07/2017 9:53 AM HARBOR PILOT) [facility] Tacrolimus, random 14.2 ng/mL [facility] Comment: Interpretive Data Testing performed by liquid chromatography-tandem mass spectrometry (LC- MS/MS).This test was developed using an analyte specific reagent. Its performance characteristics were determined by the [facility] in a manner consistent with CLIA requirements. ??This test has not been cleared or approved by the U.S. Food and Drug Administration. Current interpretive data was last revised on 2016. Blood specimen (specimen) 12/07/2017 9:53 AM HARBOR PILOT 12/07/2017 10:23 AM HARBOR PILOT Narrative [facility] - 12/07/2017 2:11 PM HARBOR PILOT us Sharon Eid MD LAB BLOOD ORDERABLES Final R esult Performing Organization Address [facility] Co de Phone Number [facility] [place] [address] * (ABNORMAL) Potassium, Whole Blood (12/07/2017 9:53 AM HARBOR PILOT) [facility] Potassium, bld 5.3(H) 3.3 - 4.9 mmol/L [facility] Blood specimen (specimen) 12/07/2017 9:53 AM HARBOR PILOT 12/07/2017 10:19 AM HARBOR PILOT Narrative [facility] - 12/07/2017 10:22 AM HARBOR PILOT us Sharon Eid MD LAB BLOOD ORDERABLES Final R esult Performing Organization Address City/[facility] Co de Phone Number [facility] [place] [address] * Glucose POC (12/07/2017 7:38 AM HARBOR PILOT) [facility] Glucose, POC 139 70 - 199 mg/dL [facility] Blood specimen (specimen) 12/07/2017 7:38 AM HARBOR PILOT 12/07/2017 7:38 AM HARBOR PILOT Narrative [facility] - 12/07/2017 7:58 AM HARBOR PILOT us Francis Park MD PhD POINT OF CARE TEST ORDER SUBHA Final Result Performing Organization Address [facility] de Phone Number [facility] [place] [address] * (ABNORMAL) Hepatic function panel (12/07/2017 3:27 AM HARBOR PILOT) [facility] AST 34 10 - 50 Units/L [facility] ALT 27 7 - 55 Units/L [facility] Alk phos 613(H) 40 - 130 Units/L [facility] Bilirubin, total 0.3 0.1 - 1.2 mg/dL [facility] Bilirubin, direct <0.2 0.1 - 0.3 mg/dL [facility] Protein, pl 6.7 6.5 - 8.5 g/dL [facility] Albumin 2.2(L) 3.5 - 5.0 g/dL [facility] Blood specimen (specimen) 12/07/2017 3:27 AM HARBOR PILOT 12/07/2017 5:04 AM HARBOR PILOT Narrative [facility] - 12/07/2017 6:27 AM HARBOR PILOT Michael Perrin MD LAB BLOOD ORDERABLES Final Result [facility] [place] [address] * Magnesium (12/07/2017 3:27 AM HARBOR PILOT) Magnesium 1.4 1.4 - 2.5 mg/dL [facility] Blood specimen (specimen) 12/07/2017 3:27 AM HARBOR PILOT 12/07/2017 5:04 AM HARBOR PILOT Narrative [facility] - 12/07/2017 6:27 AM HARBOR PILOT Michael Perrin MD LAB BLOOD ORDERABLES Final Result Performing Organization Address City/[facility]/ZIP Co de Phone Number [facility] [place] [address] * Phosphorus (12/07/2017 3:27 AM HARBOR PILOT) Phosphorus, pl 3.4 2.3 - 4.5 mg/dL [facility] Blood specimen (specimen) 12/07/2017 3:27 AM HARBOR PILOT 12/07/2017 5:04 AM HARBOR PILOT Narrative [facility] - 12/07/2017 6:27 AM HARBOR PILOT Michael Perrin MD LAB BLOOD ORDERABLES Final Result Performing Organization Address City/[facility]/[place] [address] * (ABNORMAL) Morphology exam (12/07/2017 3:27 AM HARBOR PILOT) Neutrophils 53.5 % [facility] Lymphocytes 28.1 % [facility] Monos 17.5 % [facility] Eosinophils 0.9 % [facility] Platelet estimate Adequate [facility] Anisocytosis 3+(A) [facility] Macrocytes > 15/HPF(A) [facility] WBC counted 114 Cells [facility] RBC morphology Present(A) [facility] Neutrophil abs 4.84 1.70 - 6.50 K/cumm [facility] Lymphs, abs 2.54 0.80 - 3.30 K/cumm [facility] Monos, abs 1.58(H) 0.20 - 0.80 K/cumm [facility] Eosinophils, abs 0.08 0.00 - 0.50 K/cumm [facility] Immature granulocyte, abs 0.00 0.00 - 0.10 K/cumm [facility] Blood specimen (specimen) 12/07/2017 3:27 AM HARBOR PILOT 12/07/2017 5:03 AM HARBOR PILOT Narrative [facility] - 12/07/2017 6:08 AM HARBOR PILOT Michael Perrin MD LAB BLOOD ORDERABLES Final Result [facility] [place] [address] * (ABNORMAL) Basic metabolic panel (12/07/2017 3:27 AM HARBOR PILOT) Sodium 131(L) 135 - 145 mmol/L [facility] Potassium, pl 5.3(H) 3.3 - 4.9 mmol/L [facility] Chloride 98 97 - 110 mmol/L [facility] CO2 29 22 - 32 mmol/L [facility] BUN 9 8 - 25 mg/dL [facility] Glucose 181 70 - 199 mg/dL [facility] [...] 2017. Creatinine 0.85 0.80 - 1.30 mg/dL [facility] Calcium 8.4(L) 8.5 - 10.3 mg/dL [facility] Anion gap 4 2 - 15 mmol/L [facility] Blood specimen (specimen) 12/07/2017 3:27 AM HARBOR PILOT 12/07/2017 5:04 AM HARBOR PILOT Narrative [facility] - 12/07/2017 5:47 AM HARBOR PILOT us Michael Perrin MD LAB BLOOD ORDERABLES Final Result [facility] [place] [address] * (ABNORMAL) CBC without differential (12/07/2017 3:27 AM HARBOR PILOT) WBC 9.05 3.80 - 9.90 K/cumm [facility] RBC 2.83(L) 4.30 - 5.80 M/cumm [facility] Hgb 9.7(L) 13.0 - 17.5 g/dL [facility] Hct 28.1(L) 38.9 - 50.3 % [facility] MCV 99.3(H) 81.3 - 96.4 fL [facility] MCH 34.3(H) 27.1 - 33.3 pg [facility] MCHC 34.5 32.3 - 35.7 g/dL [facility] RDW CV 15.7(H) 11.1 - 14.9 % [facility] RDW SD 57.0(H) 35.7 - 48.1 fL [facility] NRBC 0.0 0.0 - 0.2 % [facility] NRBC abs 0.00 0.00 - 0.01 K/cumm [facility] Plt 232 150 - 400 K/cumm [facility] MPV 11.1 9.1 - 12.3 fL [facility] Blood specimen (specimen) 12/07/2017 3:27 AM HARBOR PILOT 12/07/2017 5:03 AM HARBOR PILOT Narrative [facility] - 12/07/2017 5:17 AM HARBOR PILOT us Michael Perrin MD LAB BLOOD ORDERABLES Final Result Performing Organization Address [facility]/[place] [address] * Glucose POC (12/06/2017 8:51 PM HARBOR PILOT) Glucose, POC 154 70 - 199 mg/dL [facility] Blood specimen (specimen) 12/06/2017 8:51 PM HARBOR PILOT 12/06/2017 8:51 PM HARBOR PILOT Narrative [facility] - 12/07/2017 3:49 AM HARBOR PILOT us Francis Park MD PhD POINT OF CARE TEST ORDER SUBHA Final Result Performing Organization Address [facility] [place] [address] * Glucose POC (12/06/2017 5:44 PM HARBOR PILOT) Glucose, POC 84 70 - 199 mg/dL [facility] Blood specimen (specimen) 12/06/2017 5:44 PM HARBOR PILOT 12/06/2017 5:44 PM HARBOR PILOT Narrative [facility] - 12/06/2017 6:31 PM HARBOR PILOT us Francis Park MD PhD POINT OF CARE TEST ORDER SUBHA Final Result Performing Organization Address [facility] [place] [address] * (ABNORMAL) Glucose POC (12/06/2017 2:05 PM HARBOR PILOT) Glucose, POC 251(H) 70 - 199 mg/dL [facility] Blood specimen (specimen) 12/06/2017 2:05 PM HARBOR PILOT 12/06/2017 2:05 PM HARBOR PILOT Narrative [facility] - 12/06/2017 5:15 PM HARBOR PILOT Francis Park MD PhD POINT OF CARE TEST ORDER SUBHA Final Result Performing Organization Address [facility] de Phone Number [facility] [place] [address] * Tacrolimus level, random (12/06/2017 1:22 PM HARBOR PILOT) Tacrolimus, random 14.0 ng/mL [facility] Comment: Interpretive Data Testing performed by liquid chromatography-tandem mass spectrometry (LC- MS/MS).This test was developed using an analyte specific reagent. Its performance characteristics were determined by the [facility] in a manner consistent with CLIA requirements. ??This test has not been cleared or approved by the U.S. Food and Drug Administration. Current interpretive data was last revised on 2016. Blood specimen (specimen) 12/06/2017 1:22 PM HARBOR PILOT 12/06/2017 2:30 PM HARBOR PILOT Narrative [facility] - 12/07/2017 4:22 AM HARBOR PILOT us Sharon Eid MD LAB BLOOD ORDERABLES Final R esult Performing Organization Address [facility] de Phone Number [facility] [place] [address] * (ABNORMAL) Potassium, Whole Blood (12/06/2017 9:02 AM HARBOR PILOT) Potassium, bld 5.0(H) 3.3 - 4.9 mmol/L [facility] Blood specimen (specimen) 12/06/2017 9:02 AM HARBOR PILOT 12/06/2017 9:18 AM HARBOR PILOT Narrative [facility] - 12/06/2017 9:21 AM HARBOR PILOT us Sharon Eid MD LAB BLOOD ORDERABLES Final R esult [facility] [place] [address] * Glucose POC (12/06/2017 8:45 AM HARBOR PILOT) Pathologist [facility] Glucose, POC 140 70 - 199 mg/dL [facility] Blood specimen (specimen) 12/06/2017 8:45 AM HARBOR PILOT 12/06/2017 8:45 AM HARBOR PILOT Narrative [facility] - 12/06/2017 8:59 AM HARBOR PILOT us Francis Park MD PhD POINT OF CARE TEST ORDER SUBHA Final Result Performing Organization Address [facility] de Phone Number [facility] [place] [address] * (ABNORMAL) Morphology exam (12/06/2017 1:25 AM HARBOR PILOT) [facility] Neutrophils 50.9 % [facility] Lymphocytes 33.9 % [facility] Monos 13.4 % [facility] Eosinophils 0.9 % [facility] Basophil pct 0.9 % [facility] Platelet estimate Adequate [facility] Anisocytosis 3+(A) [facility] Macrocytes 8-15/HPF(A) [facility] Target cells 3-7/HPF(A) [facility] WBC counted 112 Cells [facility] RBC morphology Present(A) [facility] Neutrophil abs 5.01 1.70 - 6.50 K/cumm [facility] Lymphs, abs 3.34(H) 0.80 - 3.30 K/cumm [facility] Monos, abs 1.32(H) 0.20 - 0.80 K/cumm [facility] Eosinophils, abs 0.09 0.00 - 0.50 K/cumm [facility] Basophils, abs 0.09 0.00 - 0.10 K/cumm [facility] Immature granulocyte, abs 0.00 0.00 - 0.10 K/cumm [facility] Blood specimen (specimen) 12/06/2017 1:25 AM HARBOR PILOT 12/06/2017 2:50 AM HARBOR PILOT Narrative [facility] - 12/06/2017 4:01 AM HARBOR PILOT us Michael Perrin MD LAB BLOOD ORDERABLES Final Result Performing Organization Address [facility] Co de Phone Number [facility] [place] [address] * (ABNORMAL) Hepatic function panel (12/06/2017 1:25 AM HARBOR PILOT) AST 40 10 - 50 Units/L [facility] ALT 28 7 - 55 Units/L [facility] Alk phos 673(H) 40 - 130 Units/L [facility] Bilirubin, total 0.3 0.1 - 1.2 mg/dL [facility] Bilirubin, direct <0.2 0.1 - 0.3 mg/dL [facility] Protein, pl 6.7 6.5 - 8.5 g/dL [facility] Albumin 2.3(L) 3.5 - 5.0 g/dL [facility] Blood specimen (specimen) 12/06/2017 1:25 AM HARBOR PILOT 12/06/2017 2:42 AM HARBOR PILOT Narrative [facility] - 12/06/2017 3:21 AM HARBOR PILOT us Sharon Eid MD LAB BLOOD ORDERABLES Final R esult Performing Organization Address City/[facility]/ZIP Co de Phone Number [facility] [place] [address] * (ABNORMAL) Basic metabolic panel (12/06/2017 1:25 AM HARBOR PILOT) Sodium 131(L) 135 - 145 mmol/L [facility] Potassium, pl 5.3(H) 3.3 - 4.9 mmol/L [facility] Chloride 100 97 - 110 mmol/L [facility] CO2 27 22 - 32 mmol/L [facility] BUN 10 8 - 25 mg/dL [facility] Glucose 162 70 [...] 2017. Creatinine 0.94 0.80 - 1.30 mg/dL [facility] Calcium 8.5 8.5 - 10.3 mg/dL [facility] Anion gap 4 2 - 15 mmol/L [facility] Blood specimen (specimen) 12/06/2017 1:25 AM HARBOR PILOT 12/06/2017 2:42 AM HARBOR PILOT Narrative [facility] - 12/06/2017 3:21 AM HARBOR PILOT us Sharon Eid MD LAB BLOOD ORDERABLES Final R esult [facility] [place] [address] * (ABNORMAL) Heparin anti factor Xa activity (12/06/2017 1:25 AM HARBOR PILOT) Anti Factor Xa 0.85(H) 0.30 - 0.70 IUnits/mL [facility] Comment: Interpretive Data Unfractionated Heparin (UFH)Therapeutic [...] 2011. Blood specimen (specimen) 12/06/2017 1:25 AM HARBOR PILOT 12/06/2017 2:41 AM HARBOR PILOT Narrative [facility] - 12/06/2017 2:59 AM HARBOR PILOT us Sharon Eid MD LAB BLOOD ORDERABLES Final R esult [facility] [place] [address] * (ABNORMAL) CBC without differential (12/06/2017 1:25 AM HARBOR PILOT) WBC 9.84 3.80 - 9.90 K/cumm [facility] RBC 2.95(L) 4.30 - 5.80 M/cumm [facility] Hgb 10.0(L) 13.0 - 17.5 g/dL [facility] Hct 29.5(L) 38.9 - 50.3 % [facility] MCV 100.0(H) 81.3 - 96.4 fL [facility] MCH 33.9(H) 27.1 - 33.3 pg [facility] MCHC 33.9 32.3 - 35.7 g/dL [facility] RDW CV 15.8(H) 11.1 - 14.9 % [facility] RDW SD 58.2(H) 35.7 - 48.1 fL [facility] NRBC 0.0 0.0 - 0.2 % [facility] NRBC abs 0.00 0.00 - 0.01 K/cumm [facility] Plt 234 150 - 400 K/cumm [facility] MPV 11.3 9.1 - 12.3 fL [facility] Blood specimen (specimen) 12/06/2017 1:25 AM HARBOR PILOT 12/06/2017 2:50 AM HARBOR PILOT Narrative [facility] - 12/06/2017 2:57 AM HARBOR PILOT us Michael Perrin MD LAB BLOOD ORDERABLES Final Result Performing Organization Address [facility] [place] [address] * Glucose POC (12/05/2017 8:55 PM HARBOR PILOT) Glucose, POC 129 70 - 199 mg/dL [facility] Blood specimen (specimen) 12/05/2017 8:55 PM HARBOR PILOT 12/05/2017 8:55 PM HARBOR PILOT Narrative [facility] - 12/05/2017 9:07 PM HARBOR PILOT us Francis Park MD PhD POINT OF CARE TEST ORDER SUBHA Final Result Performing Organization Address [facility] de Phone Number [facility] [place] [address] * (ABNORMAL) Glucose POC (12/05/2017 6:36 PM HARBOR PILOT) Glucose, POC 219(H) 70 - 199 mg/dL [facility] Blood specimen (specimen) 12/05/2017 6:36 PM HARBOR PILOT 12/05/2017 6:36 PM HARBOR PILOT Narrative [facility] - 12/05/2017 6:57 PM HARBOR PILOT us Francis Park MD PhD POINT OF CARE TEST ORDER SUBHA Final Result Performing Organization Address [facility] de Phone Number [facility] [place] [address] * Glucose POC (12/05/2017 1:05 PM HARBOR PILOT) Glucose, POC 92 70 - 199 mg/dL [facility] Blood specimen (specimen) 12/05/2017 1:05 PM HARBOR PILOT 12/05/2017 1:05 PM HARBOR PILOT Narrative [facility] - 12/05/2017 1:19 PM HARBOR PILOT us Francis Park MD PhD POINT OF CARE TEST ORDER SUBHA Final Result [facility] [place] [address] * XR Chest 1 Vw (12/05/2017 12:07 PM HARBOR PILOT) Anatomical Region Laterality Modality Body, Chest N/A Radiographic Tiffany ging 12/05/2017 12:0 7 PM HARBOR PILOT Narrative 12/05/2017 1:23 PM HARBOR PILOT RANJAN BOWMAN M.D. FINAL REPORT ACC# ??Date Time ??Exam [id number] Dec 05, 2017 06:07:00 [id number] Chest 1 view Frontal EXAMINATION: ??1 view [...] BOWMAN M.D. on Dec 05 2017 ??7:21A [id number] BOWMAN M.D. FINAL REPORT Attending: ??MARCELINA, ??SOURAV Requesting: ??PREETHI, ??IDA Requesting Fax: ?? Attending Fax: ?? Attending ID: ??[id number] Requesting ID: ??[id number] Report To 1 ID: ??[id number] ? Report To 1 Name: ??, ?? Report To 1 FAX: ?? NextGen Order #: ?? Procedure Note Miscellaneous, Not In File - 12/05/2017 RANJAN BOWMAN M.D. FINAL REPORT ACC# Date Time Exam [id number] Dec 05, 2017 06:07:00 [id number] Chest 1 view Frontal EXAMINATION: 1 view [...] BOWMAN M.D. on Dec 05 2017 7:21A [id number] BOWMAN M.D. FINAL REPORT Attending: SOURAV CALLEJAS Requesting: IDA ORO Requesting Fax: Attending Fax: Attending ID: [id number] Requesting ID: [id number] Report To 1 ID: [id number] Report To 1 Name: , Report To 1 FAX: NextGen Order #: Ida Oro MD IMG XR PROCEDURES Edited Res ult - Final * Tacrolimus level trough (12/05/2017 9:30 AM HARBOR PILOT) Tacrolimus, trough 15.7 ng/mL [facility] Comment: Interpretive Data The therapeutic range for tacrolimus can vary by transplant organ type and sample timing but a trough range of 5 - 15 ng/mL is typical. Testing performed by liquid chromatography-tandem mass spectrometry (LC- MS/MS).This test was developed using an analyte specific reagent. Its performance characteristics were determined by the [facility] in a manner consistent with CLIA requirements. This test has not been cleared or approved by the U.S. Food and Drug Administration. Current interpretive data was last revised on 2016. Blood specimen (specimen) 12/05/2017 9:30 AM HARBOR PILOT 12/05/2017 10:21 AM HARBOR PILOT Narrative [facility] - 12/05/2017 3:42 PM HARBOR PILOT us Sharon Eid MD LAB BLOOD ORDERABLES Final R esult Performing Organization Address [facility] Co de Phone Number [facility] [place] [address] * Glucose POC (12/05/2017 9:16 AM HARBOR PILOT) Glucose, POC 187 70 - 199 mg/dL [facility] Blood specimen (specimen) 12/05/2017 9:16 AM HARBOR PILOT 12/05/2017 9:16 AM HARBOR PILOT Narrative [facility] - 12/05/2017 9:38 AM HARBOR PILOT us Francis Park MD PhD POINT OF CARE TEST ORDER SUBHA Final Result Performing Organization Address [facility] [place] [address] * (ABNORMAL) Gamma GT (12/05/2017 5:59 AM HARBOR PILOT) GGT 330(H) 10 - 50 Units/L [facility] Blood specimen (specimen) 12/05/2017 5:59 AM HARBOR PILOT 12/05/2017 6:41 AM HARBOR PILOT Narrative [facility] - 12/05/2017 9:01 AM HARBOR PILOT us Michael Perrin MD LAB BLOOD ORDERABLES Final Result Performing Organization Address [facility] Co de Phone Number [facility] [place] [address] * Type and screen (12/05/2017 5:59 AM HARBOR PILOT) ABO Rh A Positive [facility] Ursula, indirect Negative [facility] Blood specimen (specimen) 12/05/2017 5:59 AM HARBOR PILOT 12/05/2017 6:39 AM HARBOR PILOT Narrative [facility] - 12/05/2017 8:13 AM HARBOR PILOT us Michael Perrin MD LAB BLOOD BANK TEST ORDERAB LES Final Result [facility] [place] [address] * (ABNORMAL) Comprehensive metabolic panel (12/05/2017 5:59 AM HARBOR PILOT) Pathologist [facility] Sodium 133(L) 135 - 145 mmol/L [facility] Potassium, pl 5.0(H) 3.3 - 4.9 mmol/L [facility] CO2 28 22 - 32 mmol/L [facility] BUN 7(L) 8 - 25 mg/dL [facility] Glucose 207(H) 70 - 199 mg/dL [facility] [...] 2017. Creatinine 0.78(L) 0.80 - 1.30 mg/dL [facility] Calcium 8.0(L) 8.5 - 10.3 mg/dL [facility] Chloride 101 97 - 110 mmol/L [facility] Albumin 2.2(L) 3.5 - 5.0 g/dL [facility] AST 25 10 - 50 Units/L [facility] ALT 21 7 - 55 Units/L [facility] Alk phos 567(H) 40 - 130 Units/L [facility] Bilirubin, total 0.3 0.1 - 1.2 mg/dL [facility] Protein, pl 6.2(L) 6.5 - 8.5 g/dL [facility] Anion gap 4 2 - 15 mmol/L [facility] Blood specimen (specimen) 12/05/2017 5:59 AM HARBOR PILOT 12/05/2017 6:41 AM HARBOR PILOT Narrative [facility] - 12/05/2017 7:46 AM HARBOR PILOT us Michael Perrin MD LAB BLOOD ORDERABLES Final Result Performing Organization Address City/[facility]/ZIP Co de Phone Number [facility] [place] [address] * Phosphorus (12/05/2017 5:59 AM HARBOR PILOT) Pathologist [facility] Phosphorus, pl 3.0 2.3 - 4.5 mg/dL [facility] Blood specimen (specimen) 12/05/2017 5:59 AM HARBOR PILOT 12/05/2017 6:41 AM HARBOR PILOT Narrative [facility] - 12/05/2017 7:46 AM HARBOR PILOT us Michael Perrin MD LAB BLOOD ORDERABLES Final Result Performing Organization Address [facility] Co de Phone Number [facility] [place] [address] * (ABNORMAL) Morphology exam (12/05/2017 5:59 AM HARBOR PILOT) Neutrophils 66.4 % [facility] Lymphocytes 15.0 % [facility] Monos 18.6 % [facility] Platelet estimate Adequate [facility] Anisocytosis 2+(A) [facility] Microcytes 3-7/HPF(A) [facility] Macrocytes 3-7/HPF(A) [facility] Polychromasia 3-7/HPF(A) [facility] Target cells 3-7/HPF(A) [facility] Schistocytes 1-2/HPF(A) [facility] Acanthocytes 3-7/HPF(A) [facility] Echinocytes Present(A) [facility] WBC counted 113 Cells [facility] RBC morphology Present(A) [facility] Neutrophil abs 5.75 1.70 - 6.50 K/cumm [facility] Lymphs, abs 1.30 0.80 - 3.30 K/cumm [facility] Monos, abs 1.61(H) 0.20 - 0.80 K/cumm [facility] Immature granulocyte, abs 0.00 0.00 - 0.10 K/cumm [facility] Morphology scrn See Comment [facility] Comment:PLT: Giant platelets present Blood specimen (specimen) 12/05/2017 5:59 AM HARBOR PILOT 12/05/2017 6:40 AM HARBOR PILOT Narrative [facility] - 12/05/2017 7:23 AM HARBOR PILOT Michael Perrin MD LAB BLOOD ORDERABLES Final Result Performing Organization Address City/[facility]/ZIP Co de Phone Number [facility] Department of Laboratories [place], [place] [address] * Magnesium (12/05/2017 5:59 AM HARBOR PILOT) Pathologist [facility] Magnesium 1.6 1.4 - 2.5 mg/dL [facility] Blood specimen (specimen) 12/05/2017 5:59 AM HARBOR PILOT 12/05/2017 6:41 AM HARBOR PILOT Narrative [facility] - 12/05/2017 7:08 AM HARBOR PILOT Michael Perrin MD LAB BLOOD ORDERABLES Final Result Performing Organization Address City/[facility] Co de Phone Number [facility] [place] [address] * Lactate dehydrogenase (LD) (12/05/2017 5:59 AM HARBOR PILOT) Lactate dehydrogenase (LDH) 226 100 - 250 Units/L [facility] Blood specimen (specimen) 12/05/2017 5:59 AM HARBOR PILOT 12/05/2017 6:41 AM HARBOR PILOT Narrative [facility] - 12/05/2017 7:08 AM HARBOR PILOT us Michael Perrin MD LAB BLOOD ORDERABLES Final Result [facility] [place] [address] * (ABNORMAL) CBC without differential (12/05/2017 5:59 AM HARBOR PILOT) Pathologist [facility] WBC 8.66 3.80 - 9.90 K/cumm [facility] RBC 2.91(L) 4.30 - 5.80 M/cumm [facility] Hgb 9.9(L) 13.0 - 17.5 g/dL [facility] Hct 29.3(L) 38.9 - 50.3 % [facility] MCV 100.7(H) 81.3 - 96.4 fL [facility] MCH 34.0(H) 27.1 - 33.3 pg [facility] MCHC 33.8 32.3 - 35.7 g/dL [facility] RDW CV 16.0(H) 11.1 - 14.9 % [facility] RDW SD 58.9(H) 35.7 - 48.1 fL [facility] NRBC 0.0 0.0 - 0.2 % [facility] NRBC abs 0.00 0.00 - 0.01 K/cumm [facility] Plt 216 150 - 400 K/cumm [facility] MPV 11.3 9.1 - 12.3 fL [facility] Blood specimen (specimen) 12/05/2017 5:59 AM HARBOR PILOT 12/05/2017 6:40 AM HARBOR PILOT Narrative [facility] - 12/05/2017 6:47 AM HARBOR PILOT us Michael Perrin MD LAB BLOOD ORDERABLES Final Result [facility] [place] [address] * Glucose POC (12/04/2017 8:34 PM HARBOR PILOT) Glucose, POC 100 70 - 199 mg/dL [facility] Blood specimen (specimen) 12/04/2017 8:34 PM HARBOR PILOT 12/04/2017 8:34 PM HARBOR PILOT Narrative [facility] - 12/04/2017 8:58 PM HARBOR PILOT us Francis Park MD PhD POINT OF CARE TEST ORDER SUBHA Final Result [facility] [place] [address] * XR Chest 1 Vw (12/04/2017 4:23 PM HARBOR PILOT) Anatomical Region Laterality Modality Body, Chest N/A Radiographic Tiffany ging 12/04/2017 4:23 PM HARBOR PILOT Narrative 12/04/2017 6:31 PM HARBOR PILOT BRITNI FARMER M.D. FINAL REPORT ACC# ??Date Time ??Exam [id number] Dec 04, 2017 10:23:00 [id number] Chest 1 view Frontal EXAMINATION: ??1 view [...] Fax: ?? Attending Fax: ?? Attending ID: ??[id number] Requesting ID: ??[id number] Report To 1 ID: ??[id number] ? Report To 1 Name: ??, ?? Report To 1 FAX: ?? NextGen Order #: ?? Procedure Note Miscellaneous, Not In File - 12/04/2017 BRITNI FARMER M.D. FINAL REPORT ACC# Date Time Exam [id number] Dec 04, 2017 10:23:00 [id number] Chest 1 view Frontal EXAMINATION: 1 view [...] ABDALLA Requesting Fax: Attending Fax: Attending ID: [id number] Requesting ID: [id number] Report To 1 ID: [id number] Report To 1 Name: , Report To 1 FAX: NextGen Order #: us Ruben Abdalla MD PhD IMG XR PROCEDURES Final Result * US Guided Thoracentesis (12/04/2017 4:21 PM HARBOR PILOT) Anatomical Region Laterality Modality Chest N/A Ultrasound 12/04/2017 4:21 PM HARBOR PILOT Narrative 12/04/2017 10:25 PM HARBOR PILOT Toño LEPE M.D. FINAL REPORT The radiology attending physician has personally reviewed this study, and has reviewed and/or edited this written report and agrees with it. ACC# ??Date Time ??Exam [id number] Dec 04, 2017 10:21:00 [id number] Thoracentesis w Imaging EXAMINATION: ??DIAGNOSTIC AND THERAPEUTIC [...] ABDALLA M.D. on Dec 04 2017 ??4:23P [id number] LEPE M.D. FINAL REPORT The radiology attending physician has personally reviewed this study, and has reviewed and/or edited this written report and agrees with it. Attending: ??MARCELINA, ??SOURAV Requesting: ??CELESTE, ??SHARON Requesting Fax: ?? Attending Fax: ?? Attending ID: ??[id number] Requesting ID: ??[id number] Report To 1 ID: ??[id number] ? Report To 1 Name: ??, ?? Report To 1 FAX: ?? NextGen Order #: ?? Procedure Note Miscellaneous, Not In File - 12/04/2017 Toño LEPE M.D. FINAL REPORT The radiology attending physician has personally reviewed this study, and has reviewed and/or edited this written report and agrees with it. ACC# Date Time Exam [id number] Dec 04, 2017 10:21:00 [id number] Thoracentesis w Imaging EXAMINATION: DIAGNOSTIC AND THERAPEUTIC [...] ABDALLA M.D. on Dec 04 2017 4:23P [id number] ZAIDI M.D. FINAL REPORT The radiology attending physician has personally reviewed this study, and has reviewed and/or edited this written report and agrees with it. Attending: SOURAV CALLEJAS Requesting: SHARON EID Requesting Fax: Attending Fax: Attending ID: [id number] Requesting ID: [id number] Report To 1 ID: [id number] Report To 1 Name: , Report To 1 FAX: NextGen Order #: us Sharon Eid MD IM US PROCEDURES Final Resu lt * (ABNORMAL) Glucose POC (12/04/2017 4:19 PM HARBOR PILOT) Glucose, POC 251(H) 70 - 199 mg/dL [facility] Blood specimen (specimen) 12/04/2017 4:19 PM HARBOR PILOT 12/04/2017 4:19 PM HARBOR PILOT Narrative [facility] - 12/04/2017 5:01 PM HARBOR PILOT us Francis Park MD PhD POINT OF CARE TEST ORDER SUBHA Final Result Performing Organization Address City/[facility] Co de Phone Number [facility] [place] [address] * Glucose POC (12/04/2017 11:41 AM HARBOR PILOT) Glucose, POC 113 70 - 199 mg/dL [facility] Blood specimen (specimen) 12/04/2017 11:41 AM HARBOR PILOT 12/04/2017 11:41 AM HARBOR PILOT Narrative [facility] - 12/04/2017 12:00 PM HARBOR PILOT Francis Park MD PhD POINT OF CARE TEST ORDER SUBHA Final Result Performing Organization Address [facility] de Phone Number [facility] [place] [address] * Surgical pathology (12/04/2017 9:36 AM HARBOR PILOT) 12/04/2017 9:36 AM HARBOR PILOT 12/04/2017 12:14 PM HARBOR PILOT Narrative 12/06/2017 2:53 PM HARBOR PILOT [facility] Johnathon Jaramillo [facility] [place] [address] SURGICAL PATHOLOGY REPORT FINAL Patient Name: BRI JONES ? Address: [address] [facility] ??Service: ??Hematology/Oncology ??SARAH SMITH ??[id number] ??Location: [facility] Taken: 12/04/2017 Gender: M ?? Received: 12/04/2017 : 1965 (Age: 52) ??Hospital #: ??[id number] Accessioned: 12/04/2017 ?Patient Type: [facility] Inpatient Reported: 12/06/2017 ? Physician(s): Francis [...] determined by the Surgical Pathology Department at [facility] as part of an ongoing clinical quality assurance associate program and in compliance with federally mandated [...] determined by the Surgical Pathology Department of [facility]. ??It has not been cleared or approved by the U. S. Food and Drug Administration. Francis Park MD PhD LAB PATHOLOGY ORDERABLES Final Result * Leukemia/lymphoma studies (12/04/2017 9:36 AM HARBOR PILOT) Metamyelocyte , Bone Marrow Test Completed [facility] CD 14 Test Completed [facility] CD 33 Test Completed [facility] CD 34 Test Completed [facility] CD 45 Test Completed [facility] CD 64 Test Completed [facility] CD 117 Test Completed [facility] CD 123 [facility] Leukemia/Lymp gita Result See separate Surgical Pathology report. [facility] Body fluid 12/04/2017 9:36 AM HARBOR PILOT 12/04/2017 12:12 PM HARBOR PILOT Narrative [facility] - 12/04/2017 8:49 PM HARBOR PILOT Francis Park MD PhD LAB BLOOD ORDERABLES Fin al Result [facility] [place] [address] * Glucose, pleural fluid (12/04/2017 9:17 AM HARBOR PILOT) Glucose, pleural fld 82 mg/dL [facility] Comment: Interpretive Data Pleural Fluid Glucose <60 mg/dL is indicative of complicated parapneumonic effusions. References: Daniel Moreno Textbook of clinical Chemistry and Molecular Diagnositics. Elsevier Sixth Edition 2017. Body Fluids Abstract p. 925. Tomy Beaulieu, [facility] Journal of Medicine. Pleural effusions: Evaluation and Management. August 2005. Volume 72, Number 10. Current interpretive data was last revised on 2017. Pleural fluid 12/04/2017 9:1 7 AM HARBOR PILOT 12/04/2017 5:37 PM HARBOR PILOT Narrative [facility] - 12/04/2017 7:24 PM HARBOR PILOT us Francis Park MD PhD LAB BODY FLUIDS AND STOO LS ORDERABLES Final Result Performing Organization Address [facility] de Phone Number [facility] [place] [address] * Protein, pleural fluid (12/04/2017 9:17 AM HARBOR PILOT) Protein, pleural fld 3.9 g/dL [facility] Comment: Interpretive Data Ratio of Pleural fluid to serum protein > or = 0.5 is indicative of exudate and <0.5 of transudate. Reference: Daniel Moreno Textbook of clinical Chemistry and Molecular Diagnositics. Elsevier Sixth Edition 2017. Body Fluids Abstract p. 925 Current interpretive data was last revised on 2017. Pleural fluid 12/04/2017 9:1 7 AM HARBOR PILOT 12/04/2017 5:37 PM HARBOR PILOT Narrative [facility] - 12/04/2017 7:24 PM HARBOR PILOT us Francis Park MD PhD LAB BODY FLUIDS AND STOO LS ORDERABLES Final Result [facility] [place] [address] * Cytology (12/04/2017 9:16 AM HARBOR PILOT) 12/04/2017 9:16 AM HARBOR PILOT 12/04/2017 11:31 AM HARBOR PILOT Narrative 12/06/2017 4:10 PM HARBOR PILOT [facility] Johnathon Jaramillo [facility] [place] [address] CYTOPATHOLOGY REPORT FINAL Patient Name: BRI JONES Address: [address] [facility] Service: BoneMarTranspl ??[place], [place] ??[id number] Location: [place] [address] Taken: 12/04/2017 Gender: ??M Received: 12/04/2017 : 1965 (Age: 52) Hospital #: [id number] Accessioned: 12/04/2017 ?? [facility] Type: [facility] Inpatient Reported: 12/06/2017 Physician(s): ??Dalia Abdalla [...] refer to the concurrent flow cytometric analysis ([id number]) for further characterization. rcw/12/05/2017 15:13 By this [...] determined by the Surgical Pathology Department at [facility] as part of an ongoing clinical quality assurance associate program and in compliance with federally mandated [...] determined by the Surgical Pathology Department of [facility]. ??It has not been cleared or approved by the U. S. Food and Drug Administration. Wenjia Abdalla LAB CYTOLOGY ORDERABLES Final Re sult * Mycology (fungal) culture (12/04/2017 9:16 AM HARBOR PILOT) Report Final Report: No growth of fungus [facility] Thoracentesis fluid 12/04/19 9:16 AM HARBOR PILOT 12/04/2017 11:31 AM HARBOR PILOT Narrative [facility] - 12/05/2017 8:26 AM HARBOR PILOT Sharon Eid MD LAB MICROBIOLOGY - GENERAL O RDERABLES Final Result Performing Organization Address City/[facility]/ZIP Co de Phone Number [facility] [place] [address] * Body fluid aerobic and anaerobic culture (12/04/2017 9:16 AM HARBOR PILOT) Pathologist [facility] Direct Specimen Exam Stain: Cytospin gram stain shows: Moderate polymorphonuclear leukocytes seen. No organisms seen. [facility] Report Final Report: No growth [facility] Thoracentesis fluid 12/04/19 9:16 AM HARBOR PILOT 12/04/2017 11:31 AM HARBOR PILOT Narrative [facility] - 12/05/2017 8:29 AM HARBOR PILOT Specimens submitted from normally sterile body sites [...] O RDERABLES Final Result Performing Organization Address City/[facility]/ZIP Co de Phone Number [facility] [place] [address] * Fluid reference range (12/04/2017 9:16 AM HARBOR PILOT) Reference range disclaimer [facility] has no established reference ranges for this fluid type. [facility] Body fluid 12/04/2017 9:16 AM HARBOR PILOT 12/04/2017 11:36 AM HARBOR PILOT Narrative [facility] - 12/04/2017 1:24 PM HARBOR PILOT Shaorn Eid MD LAB BODY FLUIDS AND STOOLS O RDERABLES Final Result Performing Organization Address City/[facility]/ZIP Co de Phone Number [facility] [place] [address] * Cell count and differential, body fluid (12/04/2017 9:16 AM HARBOR PILOT) [facility] Signature Specimen type, fld Pleural Fluid [facility] Body site, fld unspecified [facility] Color, fld [place] [facility] Clarity, fld Slightly Cloudy Clear [facility] RBC, fld 12,586 cells/mcL [facility] Nucleated cells, fld 746 cells/mcL [facility] WBC counted 100 Cells [facility] Neutrophils, fld 12 % [facility] Lymphs, fld 32 % [facility] [place]/macropha ge fld 43 % [facility] Eosinophils, fld 13 % [facility] Body fluid 12/04/2017 9:16 AM HARBOR PILOT 12/04/2017 11:36 AM HARBOR PILOT Narrative [facility] - 12/04/2017 1:24 PM HARBOR PILOT Sharon Eid MD LAB BODY FLUIDS AND STOOLS O RDERABLES Final Result Performing Organization Address City/[facility] Co de Phone Number [facility] [place] [address] * Lactate dehydrogenase, body fluid (12/04/2017 9:16 AM HARBOR PILOT) Specimen type, fld Pleural [facility] LD, fld 407 Units/L [facility] Comment: Interpretive Data Ratio of fluid [...] revised 2017. Body fluid 12/04/2017 9:16 AM HARBOR PILOT 12/04/2017 11:26 AM HARBOR PILOT Narrative [facility] - 12/04/2017 12:05 PM HARBOR PILOT Sharon Eid MD LAB BODY FLUIDS AND STOOLS O RDERABLES Final Result [facility] [place] [address] * Albumin, Body Fluid W/Prompts (12/04/2017 9:16 AM HARBOR PILOT) Specimen type, fld Pleural [facility] Albumin, fld 1.8 g/dL [facility] Comment: Interpretive Data Pleural - A [...] revised 2017. Body fluid 12/04/2017 9:16 AM HARBOR PILOT 12/04/2017 11:26 AM HARBOR PILOT Narrative [facility] - 12/04/2017 12:05 PM HARBOR PILOT us Sharon Eid MD LAB BLOOD ORDERABLES Final R esult Performing Organization Address [facility] Co de Phone Number [facility] [place] [address] * pH, body fluid (12/04/2017 9:16 AM HARBOR PILOT) Specimen type, fld Pleural [facility] pH, fld 7.33 [facility] Comment: Pleural fluid pH is normally approximately 7.64. pH <7.2 is indicative of complicated parapneumonic effusions. References: Daniel Moreno Textbook of Clinical Chemistry and Molecular Diagnositics. Elsevier Sixth Edition 2017. Body Fluids Abstract p. 925 Tomy Beaulieu, [facility] Journal of Medicine. Pleural effusions: Evaluation and Management. August 2005. Volume 72, Number 10. Body fluid 12/04/2017 9:16 AM HARBOR PILOT 12/04/2017 11:49 AM HARBOR PILOT Narrative [facility] - 12/04/2017 11:50 AM HARBOR PILOT us Sharon Eid MD LAB BODY FLUIDS AND STOOLS O RDERABLES Final Result Performing Organization Address [facility] de Phone Number [facility] [place] [address] * Glucose POC (12/04/2017 8:26 AM HARBOR PILOT) Glucose, POC 90 70 - 199 mg/dL [facility] Blood specimen (specimen) 12/04/2017 8:26 AM HARBOR PILOT 12/04/2017 8:26 AM HARBOR PILOT Narrative [facility] - 12/04/2017 8:46 AM HARBOR PILOT us Francis Park MD PhD POINT OF CARE TEST ORDER SUBHA Final Result Performing Organization Address [facility]/State/ZIP Co de Phone Number [facility] [place] [address] * (ABNORMAL) Lactate dehydrogenase (LD) (12/04/2017 4:24 AM HARBOR PILOT) [facility] Lactate dehydrogenase (LDH) 299(H) 100 - 250 Units/L [facility] Blood specimen (specimen) 12/04/2017 4:24 AM HARBOR PILOT 12/04/2017 5:13 AM HARBOR PILOT Narrative [facility] - 12/04/2017 4:01 PM HARBOR PILOT Michael Perrin MD LAB BLOOD ORDERABLES Final Result [facility] [place] [address] * (ABNORMAL) Morphology exam (12/04/2017 4:24 AM HARBOR PILOT) [facility] Neutrophils 62.6 % [facility] Lymphocytes 17.4 % [facility] Monos 11.3 % [facility] Eosinophils 7.8 % [facility] Promyelocyte pct 0.9 % [facility] Platelet estimate Adequate [facility] Anisocytosis 1+(A) [facility] Macrocytes 3-7/HPF(A) [facility] Polychromasia 3-7/HPF(A) [facility] Target cells 3-7/HPF(A) [facility] WBC counted 115 Cells [facility] RBC morphology Present(A) [facility] Neutrophil abs 5.51 1.70 - 6.50 K/cumm [facility] Lymphs, abs 1.53 0.80 - 3.30 K/cumm [facility] Monos, abs 0.99(H) 0.20 - 0.80 K/cumm [facility] Eosinophils, abs 0.69(H) 0.00 - 0.50 K/cumm [facility] Immature granulocyte, abs 0.08 0.00 - 0.10 K/cumm [facility] Blood specimen (specimen) 12/04/2017 4:24 AM HARBOR PILOT 12/04/2017 5:15 AM HARBOR PILOT Narrative [facility] - 12/04/2017 6:24 AM HARBOR PILOT us Michael Perrin MD LAB BLOOD ORDERABLES Final Result Performing Organization Address City/[facility]/ZIP Co de Phone Number [facility] [place] [address] * (ABNORMAL) Basic metabolic panel (12/04/2017 4:24 AM HARBOR PILOT) Pathologist [facility] Sodium 136 135 - 145 mmol/L [facility] Potassium, pl 4.6 3.3 - 4.9 mmol/L [facility] Chloride 103 97 - 110 mmol/L [facility] CO2 29 22 - 32 mmol/L [facility] BUN 8 8 - 25 mg/dL [facility] Glucose 88 70 - 199 mg/dL [facility] [...] 2017. Creatinine 0.75(L) 0.80 - 1.30 mg/dL [facility] Calcium 8.2(L) 8.5 - 10.3 mg/dL [facility] Anion gap 4 2 - 15 mmol/L [facility] Blood specimen (specimen) 12/04/2017 4:24 AM HARBOR PILOT 12/04/2017 5:13 AM HARBOR PILOT Narrative [facility] - 12/04/2017 5:39 AM HARBOR PILOT Michael Perrin MD LAB BLOOD ORDERABLES Final Result Performing Organization Address City/[facility]/[place] [address] * Magnesium (12/04/2017 4:24 AM HARBOR PILOT) Pathologist [facility] Magnesium 1.7 1.4 - 2.5 mg/dL [facility] Blood specimen (specimen) 12/04/2017 4:24 AM HARBOR PILOT 12/04/2017 5:13 AM HARBOR PILOT Narrative [facility] - 12/04/2017 5:39 AM HARBOR PILOT Michael Perrin MD LAB BLOOD ORDERABLES Final Result Performing Organization Address [facility]/[place] [address] * Phosphorus (12/04/2017 4:24 AM HARBOR PILOT) [facility] Phosphorus, pl 3.7 2.3 - 4.5 mg/dL [facility] Blood specimen (specimen) 12/04/2017 4:24 AM HARBOR PILOT 12/04/2017 5:13 AM HARBOR PILOT Narrative [facility] - 12/04/2017 5:39 AM HARBOR PILOT Michael Perrin MD LAB BLOOD ORDERABLES Final Result Performing Organization Address City/[facility]/[place] [address] * Protime-INR (12/04/2017 4:24 AM HARBOR PILOT) Pathologist [facility] PT 11.0 8.5 - 13.0 sec [facility] INR 1.03 0.80 - 1.21 [facility] Comment: Interpretive Data Inpatient therapeutic ranges* Atrial fibrillation ?2.0-3.0 INR Venous thrombo-embolism ?2.0-3.0 INR Bioprosthetic heart valve ?* Mechanical heart valve, bileaflet or tilting disk,aortic position ? 2.0-3.0 INR All other,or bileaflet or tilting disk, in mitral position ? 2.5-3.5 INR *See the pharmacy resource directory (PHRED) for an updated copy of the Tool Book at [email or web address] Current Interpretive Data was last revised 2012. Blood specimen (specimen) 12/04/2017 4:24 AM HARBOR PILOT 12/04/2017 5:12 AM HARBOR PILOT Narrative [facility] - 12/04/2017 5:31 AM HARBOR PILOT us Sharon Eid MD LAB BLOOD ORDERABLES Final R esult [facility] [place] [address] * (ABNORMAL) CBC without differential (12/04/2017 4:24 AM HARBOR PILOT) WBC 8.80 3.80 - 9.90 K/cumm [facility] RBC 2.94(L) 4.30 - 5.80 M/cumm [facility] Hgb 10.1(L) 13.0 - 17.5 g/dL [facility] Hct 29.5(L) 38.9 - 50.3 % [facility] MCV 100.3(H) 81.3 - 96.4 fL [facility] MCH 34.4(H) 27.1 - 33.3 pg [facility] MCHC 34.2 32.3 - 35.7 g/dL [facility] RDW CV 15.9(H) 11.1 - 14.9 % [facility] RDW SD 58.7(H) 35.7 - 48.1 fL [facility] NRBC 0.0 0.0 - 0.2 % [facility] NRBC abs 0.00 0.00 - 0.01 K/cumm [facility] Plt 207 150 - 400 K/cumm [facility] MPV 11.2 9.1 - 12.3 fL [facility] Blood specimen (specimen) 12/04/2017 4:24 AM HARBOR PILOT 12/04/2017 5:15 AM HARBOR PILOT Narrative [facility] - 12/04/2017 5:28 AM HARBOR PILOT Michael Perrin MD LAB BLOOD ORDERABLES Final Result [facility] [place] [address] * CYTOLOGY (12/04/2017 12:00 AM HARBOR PILOT) Narrative 12/04/2017 12:00 AM HARBOR PILOT Ordered by an unspecified provider. Historical Provider LAB CYTOLOGY ORDERABLES F inal Result * SURGICAL PATHOLOGY (12/04/2017 12:00 AM HARBOR PILOT) Narrative 12/04/2017 12:00 AM HARBOR PILOT Ordered by an unspecified provider. Historical Provider LAB PATHOLOGY ORDERABLES Final Result * Glucose POC (12/03/2017 10:36 PM HARBOR PILOT) Glucose, POC 178 70 - 199 mg/dL [facility] Blood specimen (specimen) 12/03/2017 10:36 PM HARBOR PILOT 12/03/2017 10:36 PM HARBOR PILOT Narrative [facility] - 12/03/2017 10:57 PM HARBOR PILOT Francis Park MD PhD POINT OF CARE TEST ORDER SUBHA Final Result [facility] [place] [address] * XR Chest Pa Lateral 2 Views (12/03/2017 8:40 PM HARBOR PILOT) Anatomical Region Laterality Modality Body, Chest N/A Radiographic Tiffany ging 12/03/2017 8:40 PM HARBOR PILOT Narrative 12/03/2017 9:19 PM HARBOR PILOT Toño PATINO M.D. FINAL REPORT The radiology attending physician has personally reviewed this study, and has reviewed and/or edited this written report and agrees with it. ACC# ??Date Time ??Exam [id number] Dec 03, 2017 14:40:00 [id number] Chest 2vws Stnd PA/Lat EXAMINATION: ??2 view [...] Fax: ?? Attending Fax: ?? Attending ID: ??[id number] Requesting ID: ??[id number] Report To 1 ID: ??[id number] ? Report To 1 Name: ??, ?? Report To 1 FAX: ?? NextGen Order #: ?? Procedure Note Miscellaneous, Not In File - 12/03/2017 BHAVIN OCHOA M.D. MICHAEL HANSON M.D. FINAL REPORT The radiology attending physician has personally reviewed this study, and has reviewed and/or edited this written report and agrees with it. ACC# Date Time Exam [id number] Dec 03, 2017 14:40:00 [id number] Chest 2[address]nd PA/Lat EXAMINATION: 2 view [...] EID Requesting Fax: Attending Fax: Attending ID: [id number] Requesting ID: [id number] Report To 1 ID: [id number] Report To 1 Name: , Report To 1 FAX: NextGen Order #: us Sharon Eid MD IMG XR PROCEDURES Final Resu lt * Glucose POC (12/03/2017 7:05 PM HARBOR PILOT) [facility] Glucose, POC 100 70 - 199 mg/dL [facility] Blood specimen (specimen) 12/03/2017 7:05 PM HARBOR PILOT 12/03/2017 7:05 PM HARBOR PILOT Narrative [facility] - 12/03/2017 7:16 PM HARBOR PILOT Francis Park MD PhD POINT OF CARE TEST ORDER SUBHA Final Result Performing Organization Address [facility] [place] [address] * Glucose POC (12/03/2017 1:54 PM HARBOR PILOT) Glucose, POC 151 70 - 199 mg/dL [facility] Blood specimen (specimen) 12/03/2017 1:54 PM HARBOR PILOT 12/03/2017 1:54 PM HARBOR PILOT Narrative [facility] - 12/03/2017 2:45 PM HARBOR PILOT us Francis Park MD PhD POINT OF CARE TEST ORDER SUBHA Final Result Performing Organization Address [facility] de Phone Number [facility] [place] [address] * Glucose POC (12/03/2017 8:07 AM HARBOR PILOT) [facility] Glucose, POC 144 70 - 199 mg/dL [facility] Blood specimen (specimen) 12/03/2017 8:07 AM HARBOR PILOT 12/03/2017 8:07 AM HARBOR PILOT Narrative [facility] - 12/03/2017 8:19 AM HARBOR PILOT us Francis Park MD PhD POINT OF CARE TEST ORDER SUBHA Final Result Performing Organization Address [facility] [place] [address] * (ABNORMAL) CMV DNA QN, PCR (12/03/2017 3:09 AM HARBOR PILOT) [facility] CMV DNA Detected( A) [facility] Comment: Interpretive Data: The quantifiable range of this assay is 137 IUnits/mL to 9,100,000 IUnits/mL (2.14 log IUnits/mL to 6.96 log IUnits/mL). Testing was performed by the MICHEL AmpliPrep/MICHEL TaqMan CMV Test ([employer] Testing performed at [facility] Current interpretive data was last revised on 17. CMV DNA IU/mL <137 IUnits/mL [facility] CMV DNA log IU/mL <2.14 log IUnits/mL [facility] Blood specimen (specimen) 12/03/2017 3:09 AM HARBOR PILOT 12/03/2017 3:26 PM HARBOR PILOT Narrative [facility] - 12/05/2017 10:08 AM HARBOR PILOT us Michael Perrin MD LAB MICROBIOLOGY - GENERAL ORDERABLES Final Result [facility] [place] [address] * (ABNORMAL) Morphology exam (12/03/2017 3:09 AM HARBOR PILOT) Neutrophils 49.1 % [facility] Lymphocytes 33.3 % [facility] Monos 11.4 % [facility] Eosinophils 1.8 % [facility] Basophil pct 0.9 % [facility] Platelet estimate Adequate [facility] Anisocytosis 3+(A) [facility] Macrocytes > 15/HPF(A) [facility] WBC counted 114 Cells [facility] Variant lymph pct 3.5 % [facility] RBC morphology Present(A) [facility] Neutrophil abs 5.22 1.70 - 6.50 K/cumm [facility] Lymphs, abs 3.91(H) 0.80 - 3.30 K/cumm [facility] Monos, abs 1.21(H) 0.20 - 0.80 K/cumm [facility] Eosinophils, abs 0.19 0.00 - 0.50 K/cumm [facility] Basophils, abs 0.10 0.00 - 0.10 K/cumm [facility] Immature granulocyte, abs 0.00 0.00 - 0.10 K/cumm [facility] Blood specimen (specimen) 12/03/2017 3:09 AM HARBOR PILOT 12/03/2017 4:16 AM HARBOR PILOT Narrative [facility] - 12/03/2017 5:09 AM HARBOR PILOT Michael Perrin MD LAB BLOOD ORDERABLES Final Result [facility] [place] [address] * (ABNORMAL) Basic metabolic panel (12/03/2017 3:09 AM HARBOR PILOT) Sodium 133(L) 135 - 145 mmol/L [facility] Potassium, pl 4.9 3.3 - 4.9 mmol/L [facility] Chloride 98 97 - 110 mmol/L [facility] CO2 30 22 - 32 mmol/L [facility] BUN 8 8 - 25 mg/dL [facility] Glucose 94 70 - 199 mg/dL [facility] [...] 2017. Creatinine 0.70(L) 0.80 - 1.30 mg/dL [facility] Calcium 8.6 8.5 - 10.3 mg/dL [facility] Anion gap 4 2 - 15 mmol/L [facility] Blood specimen (specimen) 12/03/2017 3:09 AM HARBOR PILOT 12/03/2017 4:19 AM HARBOR PILOT Narrative [facility] - 12/03/2017 4:47 AM HARBOR PILOT us Michael Perrin MD LAB BLOOD ORDERABLES Final Result Performing Organization Address [facility] [place] [address] * Magnesium (12/03/2017 3:09 AM HARBOR PILOT) [facility] Magnesium 2.0 1.4 - 2.5 mg/dL [facility] Blood specimen (specimen) 12/03/2017 3:09 AM HARBOR PILOT 12/03/2017 4:19 AM HARBOR PILOT Narrative [facility] - 12/03/2017 4:47 AM HARBOR PILOT Michael Perrin MD LAB BLOOD ORDERABLES Final Result Performing Organization Address [facility] [place] [address] * Phosphorus (12/03/2017 3:09 AM HARBOR PILOT) [facility] Phosphorus, pl 3.4 2.3 - 4.5 mg/dL [facility] Blood specimen (specimen) 12/03/2017 3:09 AM HARBOR PILOT 12/03/2017 4:19 AM HARBOR PILOT Narrative [facility] - 12/03/2017 4:47 AM HARBOR PILOT Michael Perrin MD LAB BLOOD ORDERABLES Final Result Performing Organization Address [facility] [place] [address] * (ABNORMAL) CBC without differential (12/03/2017 3:09 AM HARBOR PILOT) [facility] WBC 10.63(H) 3.80 - 9.90 K/cumm [facility] RBC 3.16(L) 4.30 - 5.80 M/cumm [facility] Hgb 11.0(L) 13.0 - 17.5 g/dL [facility] Hct 31.3(L) 38.9 - 50.3 % [facility] MCV 99.1(H) 81.3 - 96.4 fL [facility] MCH 34.8(H) 27.1 - 33.3 pg [facility] MCHC 35.1 32.3 - 35.7 g/dL [facility] RDW CV 15.9(H) 11.1 - 14.9 % [facility] RDW SD 56.6(H) 35.7 - 48.1 fL [facility] NRBC 0.4(H) 0.0 - 0.2 % [facility] NRBC abs 0.04(H) 0.00 - 0.01 K/cumm [facility] Plt 193 150 - 400 K/cumm [facility] MPV 11.7 9.1 - 12.3 fL [facility] Blood specimen (specimen) 12/03/2017 3:09 AM HARBOR PILOT 12/03/2017 4:16 AM HARBOR PILOT Narrative [facility] - 12/03/2017 4:28 AM HARBOR PILOT us Michael Perrin MD LAB BLOOD ORDERABLES Final Result [facility] [place] [address] * Glucose POC (12/02/2017 9:08 PM HARBOR PILOT) [facility] Glucose, POC 152 70 - 199 mg/dL [facility] Blood specimen (specimen) 12/02/2017 9:08 PM HARBOR PILOT 12/02/2017 9:08 PM HARBOR PILOT [facility] - 12/02/2017 9:21 PM HARBOR PILOT us Francis Park MD PhD POINT OF CARE TEST ORDER SUBHA Final Result [facility] [place] [address] * Glucose POC (12/02/2017 7:33 PM HARBOR PILOT) [facility] Glucose, POC 156 70 - 199 mg/dL [facility] Blood specimen (specimen) 12/02/2017 7:33 PM HARBOR PILOT 12/02/2017 7:33 PM HARBOR PILOT Narrative [facility] - 12/02/2017 7:47 PM HARBOR PILOT Francis Park MD PhD POINT OF CARE TEST ORDER SUBHA Final Result Performing Organization Address City/[facility] Co de Phone Number [facility] [place] [address] * Glucose POC (12/02/2017 2:24 PM HARBOR PILOT) [facility] Glucose, POC 115 70 - 199 mg/dL [facility] Blood specimen (specimen) 12/02/2017 2:24 PM HARBOR PILOT 12/02/2017 2:24 PM HARBOR PILOT Narrative [facility] - 12/02/2017 2:46 PM HARBOR PILOT Francis Park MD PhD POINT OF CARE TEST ORDER SUBHA Final Result Performing Organization Address City/[facility] de Phone Number [facility] [place] [address] * Influenza A/B PCR (12/02/2017 12:02 PM HARBOR PILOT) [facility] Report Final Report: Flu A target RNA not detected Flu B target RNA not detected RSV target RNA not detected [facility] Nasopharyngeal 12/02/2017 12 :02 PM HARBOR PILOT 12/02/2017 1:01 PM HARBOR PILOT Narrative [facility] - 12/02/2017 1:02 PM HARBOR PILOT Interpretive Data This test is performed using the [employer] Xpress Flu/RSV Assay. ??This is a multiplex, real-time reverse transcriptase PCR assay that detects influenza A, influenza B, and respiratory syncytial virus RNA. ??This assay has been cleared by the [place] Food and Drug Administration, and its performance characteristics have been verified by the [facility]. Current interpretive data was last revised on 2017. Sharon Eid MD LAB MICROBIOLOGY - GENERAL O RDERABLES Final Result [facility] [place] [address] * Respiratory virus detection panel (12/02/2017 12:02 PM HARBOR PILOT) Report Final Report: Respiratory Pathogen nucleic acids NOT DETECTED (NEGATIVE) [facility] Nasopharyngeal 12/02/2017 12 :02 PM HARBOR PILOT 12/02/2017 1:31 PM HARBOR PILOT Narrative [facility] - 12/02/2017 1:32 PM HARBOR PILOT [employer] FilmArray Respiratory Panel (RP2) assay is a [...] FilmArray RP assay is FDA cleared for CR[employer] SC[employer] INVESTIGATOR swabs. ??Additional sample types have been validated according to CLIA regulations. The performance characteristics of this assay have been determined by [facility] Infectious Disease Laboratory. Current interpretive data was last revised on 2017. Sharon Eid MD LAB MICROBIOLOGY - GENERAL O RDERABLES Final Result Performing Organization Address City/[facility] Co de Phone Number [facility] [place] [address] * Glucose POC (12/02/2017 9:09 AM HARBOR PILOT) Glucose, POC 195 70 - 199 mg/dL [facility] Blood specimen (specimen) 12/02/2017 9:09 AM HARBOR PILOT 12/02/2017 9:09 AM HARBOR PILOT Narrative [facility] - 12/02/2017 9:55 AM HARBOR PILOT Francis Park MD PhD POINT OF CARE TEST ORDER SUBHA Final Result Performing Organization Address [facility] Co de Phone Number [facility] [place] [address] * Tacrolimus level trough (12/02/2017 9:08 AM HARBOR PILOT) Tacrolimus, trough 7.0 ng/mL [facility] Comment: Interpretive Data The therapeutic range for tacrolimus can vary by transplant organ type and sample timing but a trough range of 5 - 15 ng/mL is typical. Testing performed by liquid chromatography-tandem mass spectrometry (LC- MS/MS).This test was developed using an analyte specific reagent. Its performance characteristics were determined by the [facility] in a manner consistent with CLIA requirements. This test has not been cleared or approved by the U.S. Food and Drug Administration. Current interpretive data was last revised on 2016. Blood specimen (specimen) 12/02/2017 9:08 AM HARBOR PILOT 12/02/2017 9:54 AM HARBOR PILOT Narrative [facility] - 12/02/2017 1:08 PM HARBOR PILOT us Sharon Eid MD LAB BLOOD ORDERABLES Final R esult Performing Organization Address City/[facility] Co de Phone Number [facility] [place] [address] * Uric acid (12/02/2017 3:54 AM HARBOR PILOT) Uric acid 3.3 3.0 - 8.0 mg/dL [facility] Blood specimen (specimen) 12/02/2017 3:54 AM HARBOR PILOT 12/02/2017 5:34 AM HARBOR PILOT Narrative [facility] - 12/02/2017 12:24 PM HARBOR PILOT us Michael Perrin MD LAB BLOOD ORDERABLES Final Result Performing Organization Address [facility] Co de Phone Number [facility] [place] [address] * Type and screen (12/02/2017 3:54 AM HARBOR PILOT) ABO Rh A Positive [facility] Ursula, indirect Negative [facility] Blood specimen (specimen) 12/02/2017 3:54 AM HARBOR PILOT 12/02/2017 4:41 AM HARBOR PILOT Narrative [facility] - 12/02/2017 8:56 AM HARBOR PILOT Michael Perrin MD LAB BLOOD BANK TEST ORDERAB LES Final Result Performing Organization Address [facility] Co de Phone Number [facility] [place] [address] * (ABNORMAL) Morphology exam (12/02/2017 3:54 AM HARBOR PILOT) Pathologist [facility] Neutrophils 67.6 % [facility] Lymphocytes 19.3 % [facility] Monos 6.1 % [facility] Eosinophils 6.1 % [facility] Basophil pct 0.9 % [facility] Platelet estimate Adequate [facility] Anisocytosis 1+(A) [facility] Poikilocytosis 1+(A) [facility] Microcytes 3-7/HPF(A) [facility] Macrocytes 8-15/HPF(A) [facility] Target cells 3-7/HPF(A) [facility] WBC counted 114 Cells [facility] RBC morphology Present(A) [facility] Neutrophil abs 7.69(H) 1.70 - 6.50 K/cumm [facility] Lymphs, abs 2.20 0.80 - 3.30 K/cumm [facility] Monos, abs 0.69 0.20 - 0.80 K/cumm [facility] Eosinophils, abs 0.69(H) 0.00 - 0.50 K/cumm [facility] Basophils, abs 0.10 0.00 - 0.10 K/cumm [facility] Immature granulocyte, abs 0.00 0.00 - 0.10 K/cumm [facility] Blood specimen (specimen) 12/02/2017 3:54 AM HARBOR PILOT 12/02/2017 5:30 AM HARBOR PILOT Narrative [facility] - 12/02/2017 6:24 AM HARBOR PILOT us Michael Perrin MD LAB BLOOD ORDERABLES Final Result [facility] [place] [address] * (ABNORMAL) Comprehensive metabolic panel (12/02/2017 3:54 AM HARBOR PILOT) Pathologist [facility] Sodium 134(L) 135 - 145 mmol/L [facility] Potassium, pl 4.5 3.3 - 4.9 mmol/L [facility] CO2 29 22 - 32 mmol/L [facility] BUN 9 8 - 25 mg/dL [facility] Glucose 114 70 - 199 mg/dL [facility] [...] 2017. Creatinine 0.66(L) 0.80 - 1.30 mg/dL [facility] Calcium 8.2(L) 8.5 - 10.3 mg/dL [facility] Chloride 100 97 - 110 mmol/L [facility] Albumin 2.5(L) 3.5 - 5.0 g/dL [facility] AST 25 10 - 50 Units/L [facility] ALT 29 7 - 55 Units/L [facility] Alk phos 493(H) 40 - 130 Units/L [facility] Bilirubin, total 0.6 0.1 - 1.2 mg/dL [facility] Protein, pl 6.1(L) 6.5 - 8.5 g/dL [facility] Anion gap 5 2 - 15 mmol/L [facility] Blood specimen (specimen) 12/02/2017 3:54 AM HARBOR PILOT 12/02/2017 5:34 AM HARBOR PILOT Narrative [facility] - 12/02/2017 6:04 AM HARBOR PILOT us Michael Perrin MD LAB BLOOD ORDERABLES Final Result [facility] Department [place] [address] * Magnesium (12/02/2017 3:54 AM HARBOR PILOT) Magnesium 1.4 1.4 - 2.5 mg/dL [facility] Blood specimen (specimen) 12/02/2017 3:54 AM HARBOR PILOT 12/02/2017 5:34 AM HARBOR PILOT Narrative [facility] - 12/02/2017 6:04 AM HARBOR PILOT Michael Perrin MD LAB BLOOD ORDERABLES Final Result Performing Organization Address City/[facility]/ZIP Co de Phone Number [facility] [place] [address] * Phosphorus (12/02/2017 3:54 AM HARBOR PILOT) Pathologist [facility] Phosphorus, pl 3.2 2.3 - 4.5 mg/dL [facility] Blood specimen (specimen) 12/02/2017 3:54 AM HARBOR PILOT 12/02/2017 5:34 AM HARBOR PILOT Narrative [facility] - 12/02/2017 6:04 AM HARBOR PILOT us Michael Perrin MD LAB BLOOD ORDERABLES Final Result Performing Organization Address [facility] [place] [address] * Lactate dehydrogenase (LD) (12/02/2017 3:54 AM HARBOR PILOT) Pathologist [facility] Lactate dehydrogenase (LDH) 219 100 - 250 Units/L [facility] Blood specimen (specimen) 12/02/2017 3:54 AM HARBOR PILOT 12/02/2017 5:34 AM HARBOR PILOT Narrative [facility] - 12/02/2017 6:04 AM HARBOR PILOT Michael Perrin MD LAB BLOOD [place] [address] * (ABNORMAL) aPTT (12/02/2017 3:54 AM HARBOR PILOT) aPTT 39.2(H) 25.0 - 37.0 sec [facility] Comment: Interpretive Data Therapeutic heparin range:60.0 - 94.0 sec based on correlation with therapeutic heparin activity range of 0.3 -0.7 Units/mL. Current interpretive data was last revised on 2011. Blood specimen (specimen) 12/02/2017 3:54 AM HARBOR PILOT 12/02/2017 5:31 AM HARBOR PILOT Narrative [facility] - 12/02/2017 6:00 AM HARBOR PILOT us Michael Perrin MD LAB BLOOD ORDERABLES Final Result [facility] [place] [address] * Protime-INR (12/02/2017 3:54 AM HARBOR PILOT) Pathologist [facility] PT 12.9 8.5 - 13.0 sec [facility] INR 1.20 0.80 - 1.21 [facility] Comment: Interpretive Data Inpatient therapeutic ranges* Atrial fibrillation ?2.0-3.0 INR Venous thrombo-embolism ?2.0-3.0 INR Bioprosthetic heart valve ?* Mechanical heart valve, bileaflet or tilting disk,aortic position ? 2.0-3.0 INR All other,or bileaflet or tilting disk, in mitral position ? 2.5-3.5 INR *See the pharmacy resource directory (PHRED) for an updated copy of the Tool Book at [email or web address] Current Interpretive Data was last revised 2012. Blood specimen (specimen) 12/02/2017 3:54 AM HARBOR PILOT 12/02/2017 5:31 AM HARBOR PILOT Narrative [facility] - 12/02/2017 6:00 AM HARBOR PILOT us Michael Perrin MD LAB BLOOD ORDERABLES Final Result Performing Organization Address City/[facility] Co de Phone Number [facility] [place] [address] * (ABNORMAL) CBC without differential (12/02/2017 3:54 AM HARBOR PILOT) Pathologist [facility] WBC 11.38(H) 3.80 - 9.90 K/cumm [facility] RBC 2.97(L) 4.30 - 5.80 M/cumm [facility] Hgb 10.3(L) 13.0 - 17.5 g/dL [facility] Hct 29.6(L) 38.9 - 50.3 % [facility] MCV 99.7(H) 81.3 - 96.4 fL [facility] MCH 34.7(H) 27.1 - 33.3 pg [facility] MCHC 34.8 32.3 - 35.7 g/dL [facility] RDW CV 16.1(H) 11.1 - 14.9 % [facility] RDW SD 58.4(H) 35.7 - 48.1 fL [facility] NRBC 0.5(H) 0.0 - 0.2 % [facility] NRBC abs 0.06(H) 0.00 - 0.01 K/cumm [facility] Plt 163 150 - 400 K/cumm [facility] MPV 11.8 9.1 - 12.3 fL [facility] Blood specimen (specimen) 12/02/2017 3:54 AM HARBOR PILOT 12/02/2017 5:30 AM HARBOR PILOT Narrative [facility] - 12/02/2017 5:37 AM HARBOR PILOT us Michael Perrin MD LAB BLOOD ORDERABLES Final Result Performing Organization Address City/State/[facility] [place] [address] * Glucose POC (12/01/2017 8:13 PM HARBOR PILOT) Glucose, POC 100 70 - 199 mg/dL [facility] Blood specimen (specimen) 12/01/2017 8:13 PM HARBOR PILOT 12/01/2017 8:13 PM HARBOR PILOT Narrative [facility] - 12/01/2017 10:16 PM HARBOR PILOT Francis Park MD PhD POINT OF CARE TEST ORDER SUBHA Final Result Performing Organization Address [facility] [place] [address] * Glucose POC (12/01/2017 5:49 PM HARBOR PILOT) Glucose, POC 115 70 - 199 mg/dL [facility] Blood specimen (specimen) 12/01/2017 5:49 PM HARBOR PILOT 12/01/2017 5:49 PM HARBOR PILOT Narrative [facility] - 12/01/2017 6:12 PM HARBOR PILOT Francis Park MD PhD POINT OF CARE TEST ORDER SUBHA Final Result Performing Organization Address [facility] [place] [address] * CT Chest WO Contrast (12/01/2017 4:42 PM HARBOR PILOT) Anatomical Region Laterality Modality Body N/A Computed Tomogra phy 12/01/2017 4:42 PM HARBOR PILOT Narrative 12/01/2017 10:10 PM HARBOR PILOT CIERA VELA M.D. OLGA FIORE M.D. FINAL REPORT The radiology attending physician has personally reviewed this study, and has reviewed and/or edited this written report and agrees with it. ACC# ??Date Time ??Exam [id number] Dec 01, 2017 10:42:[address] Chest without contrast EXAMINATION: ??CT of the chest without intravenous contrast HISTORY:Cough, concern for pneumonia, AML, askpo-aozjvf-luld disease TECHNIQUE: Transaxial computed tomographic images of [...] VELA M.D. on Dec 01 2017 ??4:08P [id number] MARTINEZ M.D. FINAL REPORT The radiology attending physician has personally reviewed this study, and has reviewed and/or edited this written report and agrees with it. Attending: ??MARCELINA, ??SOURAV Requesting: ??URIEL, ??REENA Requesting Fax: ?? Attending Fax: ?? Attending ID: ??[id number] Requesting ID: ??[id number] Report To 1 ID: ??[id number] ? Report To 1 Name: ??, ?? Report To 1 FAX: ?? NextGen Order #: ?? Procedure Note Miscellaneous, Not In File - 12/01/2017 CIERA VELA M.D. OLGA FIORE M.D. FINAL REPORT The radiology attending physician has personally reviewed this study, and has reviewed and/or edited this written report and agrees with it. ACC# Date Time Exam [id number] Dec 01, 2017 10:42:[address] Chest without contrast EXAMINATION: CT of the chest without intravenous contrast HISTORY:Cough, concern for pneumonia, AML, raatp-krcghg-eluc disease TECHNIQUE: Transaxial computed tomographic images of [...] VELA M.D. on Dec 01 2017 4:08P [id number] Toño QUINTERO M.D. FINAL REPORT The radiology attending physician has personally reviewed this study, and has reviewed and/or edited this written report and agrees with it. Attending: SOURAV CALLEJAS Requesting: REENA ANDERSON Requesting Fax: Attending Fax: Attending ID: [id number] Requesting ID: [id number] Report To 1 ID: [id number] Report To 1 Name: , Report To 1 FAX: NextGen Order #: Reena Anderson IMG CT PROCEDURES Final Result * Glucose POC (12/01/2017 12:29 PM HARBOR PILOT) [facility] Glucose, POC 107 70 - 199 mg/dL [facility] Blood specimen (specimen) 12/01/2017 12:29 PM HARBOR PILOT 12/01/2017 12:29 PM HARBOR PILOT Narrative [facility] - 12/01/2017 12:44 PM HARBOR PILOT Francis Park MD PhD POINT OF CARE TEST ORDER SUBHA Final Result [facility] Department of [place] [id number] * VRE culture (12/01/2017 12:27 PM HARBOR PILOT) [facility] Report Final Report: Negative [facility] Rectal swab 12/01/2017 12:2 7 PM HARBOR PILOT 12/01/2017 1:21 PM HARBOR PILOT Narrative [facility] - 12/02/2017 8:18 AM HARBOR PILOT Reena Anderson LAB MICROBIOLOGY - GENERAL ORDER SUBHA Final Result [facility] [place] [address] * Glucose POC (12/01/2017 8:46 AM HARBOR PILOT) [facility] Glucose, POC 124 70 - 199 mg/dL [facility] Blood specimen (specimen) 12/01/2017 8:46 AM HARBOR PILOT 12/01/2017 8:46 AM HARBOR PILOT Narrative [facility] - 12/01/2017 9:05 AM HARBOR PILOT Francis Park MD PhD POINT OF CARE TEST ORDER SUBHA Final Result [facility] [place] [address] * (ABNORMAL) Morphology exam (12/01/2017 3:11 AM HARBOR PILOT) [facility] Neutrophils 66.6 % [facility] Lymphocytes 15.8 % [facility] Monos 12.3 % [facility] Eosinophils 4.4 % [facility] Basophil pct 0.9 % [facility] Platelet estimate Decreased (A) [facility] Anisocytosis 1+(A) [facility] Poikilocytosis 1+(A) [facility] Macrocytes 8-15/HPF( A) [facility] Target cells 3-7/HPF(A ) [facility] WBC counted 114 Cells [facility] RBC morphology Present(A ) [facility] Neutrophil abs 8.67(H) 1.70 - 6.50 K/cumm [facility] Lymphs, abs 2.06 0.80 - 3.30 K/cumm [facility] Monos, abs 1.60(H) 0.20 - 0.80 K/cumm [facility] Eosinophils, abs 0.57(H) 0.00 - 0.50 K/cumm [facility] Basophils, abs 0.12(H) 0.00 - 0.10 K/cumm [facility] Immature granulocyte, abs 0.00 0.00 - 0.10 K/cumm [facility] Blood specimen (specimen) 12/01/2017 3:11 AM HARBOR PILOT 12/01/2017 5:15 AM HARBOR PILOT Narrative [facility] - 12/01/2017 6:36 AM HARBOR PILOT us Michael Perrin MD LAB BLOOD ORDERABLES Final Result Performing Organization Address City/[facility]/ZIP Co de Phone Number [facility] [place] [address] * (ABNORMAL) Basic metabolic panel (12/01/2017 3:11 AM HARBOR PILOT) Sodium 134(L) 135 - 145 mmol/L [facility] Potassium, pl 4.2 3.3 - 4.9 mmol/L [facility] Chloride 100 97 - 110 mmol/L [facility] CO2 29 22 - 32 mmol/L [facility] BUN 11 8 - 25 mg/dL [facility] Glucose 122 70 - 199 mg/dL [facility] [...] 2017. Creatinine 0.58(L) 0.80 - 1.30 mg/dL [facility] Calcium 8.1(L) 8.5 - 10.3 mg/dL [facility] Anion gap 5 2 - 15 mmol/L [facility] Blood specimen (specimen) 12/01/2017 3:11 AM HARBOR PILOT 12/01/2017 5:17 AM HARBOR PILOT Narrative [facility] - 12/01/2017 5:42 AM HARBOR PILOT Michael Perrin MD LAB BLOOD ORDERABLES Final Result Performing Organization Address City/[facility]/ZIP Co de Phone Number [facility] [place] [address] * Magnesium (12/01/2017 3:11 AM HARBOR PILOT) [facility] Magnesium 1.6 1.4 - 2.5 mg/dL [facility] Blood specimen (specimen) 12/01/2017 3:11 AM HARBOR PILOT 12/01/2017 5:17 AM HARBOR PILOT Narrative [facility] - 12/01/2017 5:42 AM HARBOR PILOT Michael Perrin MD LAB BLOOD ORDERABLES Final Result Performing Organization Address City/[facility]/ZIP Co de Phone Number [facility] [place] [address] * Phosphorus (12/01/2017 3:11 AM HARBOR PILOT) [facility] Phosphorus, pl 3.0 2.3 - 4.5 mg/dL [facility] Blood specimen (specimen) 12/01/2017 3:11 AM HARBOR PILOT 12/01/2017 5:17 AM HARBOR PILOT Narrative [facility] - 12/01/2017 5:42 AM HARBOR PILOT Michael Perrin MD LAB BLOOD ORDERABLES Final Result Performing Organization Address [facility] de Phone Number [facility] [place] [address] * (ABNORMAL) CBC without differential (12/01/2017 3:11 AM HARBOR PILOT) [facility] WBC 13.02(H) 3.80 - 9.90 K/cumm [facility] RBC 3.05(L) 4.30 - 5.80 M/cumm [facility] Hgb 10.4(L) 13.0 - 17.5 g/dL [facility] Hct 30.3(L) 38.9 - 50.3 % [facility] MCV 99.3(H) 81.3 - 96.4 fL [facility] MCH 34.1(H) 27.1 - 33.3 pg [facility] MCHC 34.3 32.3 - 35.7 g/dL [facility] RDW CV 16.1(H) 11.1 - 14.9 % [facility] RDW SD 57.8(H) 35.7 - 48.1 fL [facility] NRBC 0.5(H) 0.0 - 0.2 % [facility] NRBC abs 0.06(H) 0.00 - 0.01 K/cumm [facility] Plt 145(L) 150 - 400 K/cumm [facility] MPV 12.2 9.1 - 12.3 fL [facility] Blood specimen (specimen) 12/01/2017 3:11 AM HARBOR PILOT 12/01/2017 5:15 AM HARBOR PILOT Narrative [facility] - 12/01/2017 5:31 AM HARBOR PILOT us Michael Perrin MD LAB BLOOD ORDERABLES Final Result Performing Organization Address City/[facility]/ZIP Co de Phone Number [facility] [place] [address] * Glucose POC (11/30/2017 6:07 PM HARBOR PILOT) Glucose, POC 113 70 - 199 mg/dL [facility] Blood specimen (specimen) 11/30/2017 6:07 PM HARBOR PILOT 11/30/2017 6:07 PM HARBOR PILOT Narrative [facility] - 11/30/2017 6:26 PM HARBOR PILOT us Francis Park MD PhD POINT OF CARE TEST ORDER SUBHA Final Result [facility] [place] [address] * Glucose POC (11/30/2017 11:46 AM HARBOR PILOT) Glucose, POC 125 70 - 199 mg/dL [facility] Blood specimen (specimen) 11/30/2017 11:46 AM HARBOR PILOT 11/30/2017 11:46 AM HARBOR PILOT Narrative [facility] - 11/30/2017 12:09 PM HARBOR PILOT Francis Park MD PhD POINT OF CARE TEST ORDER SUBHA Final Result Performing Organization Address City/[facility] Co de Phone Number [facility] [place] [address] * Glucose POC (11/30/2017 8:52 AM HARBOR PILOT) [facility] Glucose, POC 127 70 - 199 mg/dL [facility] Blood specimen (specimen) 11/30/2017 8:52 AM HARBOR PILOT 11/30/2017 8:52 AM HARBOR PILOT Narrative [facility] - 11/30/2017 2:43 PM HARBOR PILOT Francis Park MD PhD POINT OF CARE TEST ORDER SUBHA Final Result Performing Organization Address [facility] de Phone Number [facility] [place] [address] * (ABNORMAL) Morphology exam (11/30/2017 2:55 AM HARBOR PILOT) [facility] Neutrophils 59.6 % [facility] Lymphocytes 27.2 % [facility] Monos 12.3 % [facility] Metamyelocyte pct 0.9 % [facility] Platelet estimate Decreased (A) [facility] Anisocytosis 2+(A) [facility] Poikilocytosis 1+(A) [facility] Macrocytes 8-15/HPF( A) [facility] Target cells 3-7/HPF(A ) [facility] Acanthocytes 3-7/HPF(A ) [facility] WBC counted 114 Cells [facility] RBC morphology Present(A ) [facility] Neutrophil abs 9.57(H) 1.70 - 6.50 K/cumm [facility] Lymphs, abs 4.37(H) 0.80 - 3.30 K/cumm [facility] Monos, abs 1.98(H) 0.20 - 0.80 K/cumm [facility] Immature granulocyte, abs 0.14(H) 0.00 - 0.10 K/cumm [facility] Blood specimen (specimen) 11/30/2017 2:55 AM HARBOR PILOT 11/30/2017 3:39 AM HARBOR PILOT Narrative [facility] - 11/30/2017 4:25 AM HARBOR PILOT Michael Perrin MD LAB BLOOD ORDERABLES Final Result [facility] [place] [address] * (ABNORMAL) Basic metabolic panel (11/30/2017 2:55 AM HARBOR PILOT) Sodium 135 135 - 145 mmol/L [facility] Potassium, pl 4.0 3.3 - 4.9 mmol/L [facility] Chloride 99 97 - 110 mmol/L [facility] CO2 28 22 - 32 mmol/L [facility] BUN 16 8 - 25 mg/dL [facility] Glucose 108 70 - 199 mg/dL [facility] [...] 2017. Creatinine 0.69(L) 0.80 - 1.30 mg/dL [facility] Calcium 8.3(L) 8.5 - 10.3 mg/dL [facility] Anion gap 8 2 - 15 mmol/L [facility] Blood specimen (specimen) 11/30/2017 2:55 AM HARBOR PILOT 11/30/2017 3:39 AM HARBOR PILOT Narrative [facility] - 11/30/2017 4:06 AM HARBOR PILOT Michael Perrin MD LAB BLOOD ORDERABLES Final Result Performing Organization Address [facility] de Phone Number [facility] [place] [address] * Magnesium (11/30/2017 2:55 AM HARBOR PILOT) Pathologist [facility] Magnesium 1.9 1.4 - 2.5 mg/dL [facility] Blood specimen (specimen) 11/30/2017 2:55 AM HARBOR PILOT 11/30/2017 3:39 AM HARBOR PILOT Narrative [facility] - 11/30/2017 4:06 AM HARBOR PILOT Michael Perrin MD LAB BLOOD ORDERABLES Final Result Performing Organization Address [facility] [place] [address] * Phosphorus (11/30/2017 2:55 AM HARBOR PILOT) [facility] Phosphorus, pl 2.3 2.3 - 4.5 mg/dL [facility] Blood specimen (specimen) 11/30/2017 2:55 AM HARBOR PILOT 11/30/2017 3:39 AM HARBOR PILOT Narrative [facility] - 11/30/2017 4:06 AM HARBOR PILOT Michael Perrin MD LAB BLOOD ORDERABLES Final Result Performing Organization Address [facility] Co de Phone Number [facility] [place] [address] * (ABNORMAL) CBC without differential (11/30/2017 2:55 AM HARBOR PILOT) [facility] WBC 16.06(H) 3.80 - 9.90 K/cumm [facility] RBC 3.40(L) 4.30 - 5.80 M/cumm [facility] Hgb 11.6(L) 13.0 - 17.5 g/dL [facility] Hct 33.7(L) 38.9 - 50.3 % [facility] MCV 99.1(H) 81.3 - 96.4 fL [facility] MCH 34.1(H) 27.1 - 33.3 pg [facility] MCHC 34.4 32.3 - 35.7 g/dL [facility] RDW CV 15.8(H) 11.1 - 14.9 % [facility] RDW SD 57.0(H) 35.7 - 48.1 fL [facility] NRBC 0.6(H) 0.0 - 0.2 % [facility] NRBC abs 0.10(H) 0.00 - 0.01 K/cumm [facility] Plt 131(L) 150 - 400 K/cumm [facility] MPV 11.6 9.1 - 12.3 fL [facility] Blood specimen (specimen) 11/30/2017 2:55 AM HARBOR PILOT 11/30/2017 3:39 AM HARBOR PILOT Narrative [facility] - 11/30/2017 3:57 AM HARBOR PILOT us Michael Perrin MD LAB BLOOD ORDERABLES Final Result [facility] [place] [address] * Glucose POC (11/29/2017 8:20 PM HARBOR PILOT) [facility] Glucose, POC 111 70 - 199 mg/dL [facility] Blood specimen (specimen) 11/29/2017 8:20 PM HARBOR PILOT 11/29/2017 8:20 PM HARBOR PILOT Narrative [facility] - 11/29/2017 8:31 PM HARBOR PILOT us Francis Park MD PhD POINT OF CARE TEST ORDER SUBHA Final Result [facility] [place] [address] * Glucose POC (11/29/2017 6:12 PM HARBOR PILOT) Glucose, POC 135 70 - 199 mg/dL [facility] Blood specimen (specimen) 11/29/2017 6:12 PM HARBOR PILOT 11/29/2017 6:12 PM HARBOR PILOT [facility]arrative [facility] - 11/29/2017 6:38 PM HARBOR PILOT Francis Park MD PhD POINT OF CARE TEST ORDER SUBHA Final Result [facility] [place] [address] * Glucose POC (11/29/2017 1:04 PM HARBOR PILOT) Glucose, POC 123 70 - 199 mg/dL [facility] Glucose comment 1 RN Notified [facility] Blood specimen (specimen) 11/29/2017 1:04 PM HARBOR PILOT 11/29/2017 1:04 PM HARBOR PILOT Narrative [facility] - 11/29/2017 1:27 PM HARBOR PILOT Francis Park MD PhD POINT OF CARE TEST ORDER SUBHA Final Result Performing Organization Address City/[facility]/ZIP Co de Phone Number [facility] [place] [address] * Glucose POC (11/29/2017 9:19 AM HARBOR PILOT) Glucose, POC 114 70 - 199 mg/dL [facility] Glucose comment 1 RN Notified [facility] Blood specimen (specimen) 11/29/2017 9:19 AM HARBOR PILOT 11/29/2017 9:19 AM HARBOR PILOT Narrative [facility] - 11/29/2017 9:39 AM HARBOR PILOT Francis Park MD PhD POINT OF CARE TEST ORDER SUBHA Final Result [facility] [place] [address] * (ABNORMAL) Calcium, ionized (11/29/2017 9:09 AM HARBOR PILOT) [facility] Calcium, Ionized 4.30(L) 4.50 - 5.10 mg/dL [facility] Blood specimen (specimen) 11/29/2017 9:09 AM HARBOR PILOT 11/29/2017 9:52 AM HARBOR PILOT Narrative [facility] - 11/29/2017 10:06 AM HARBOR PILOT Michael Perrin MD LAB BLOOD [place] [address] * (ABNORMAL) Troponin I (11/29/2017 9:08 AM HARBOR PILOT) [facility] Troponin I 0.06(H) 0.00 - 0.03 ng/mL [facility] Comment: Interpretive Data Serial determinations are recommended for the diagnosis of myocardial infarction (Third [place] Definition of Myocardial Infarction. ??J Am Kizzy Cardiol 2012;60:1581-98). Current interpretive data was last revised on 13. Blood specimen (specimen) 11/29/2017 9:08 AM HARBOR PILOT 11/29/2017 10:20 AM HARBOR PILOT Narrative [facility] - 11/29/2017 10:52 AM HARBOR PILOT us Reena Anderson LAB BLOOD [place] [address] * (ABNORMAL) Basic metabolic panel (11/29/2017 6:13 AM HARBOR PILOT) [facility] Sodium 136 135 - 145 mmol/L [facility] Potassium, pl 4.0 3.3 - 4.9 mmol/L [facility] Chloride 101 97 - 110 mmol/L [facility] CO2 27 22 - 32 mmol/L [facility] BUN 15 8 - 25 mg/dL [facility] Glucose 101 70 - 199 mg/dL [facility] [...] 2017. Creatinine 0.60(L) 0.80 - 1.30 mg/dL [facility] Calcium 8.1(L) 8.5 - 10.3 mg/dL [facility] Anion gap 8 2 - 15 mmol/L [facility] Blood specimen (specimen) 11/29/2017 6:13 AM HARBOR PILOT 11/29/2017 7:46 AM HARBOR PILOT Narrative [facility] - 11/29/2017 8:17 AM HARBOR PILOT us Michael Perrin MD LAB BLOOD ORDERABLES Final Result [facility] [place] [address] * (ABNORMAL) Morphology exam (11/29/2017 4:33 AM HARBOR PILOT) Neutrophils 84.0 % [facility] Lymphocytes 6.6 % [facility] Monos 6.6 % [facility] Eosinophils 1.9 % [facility] Promyelocyte pct 0.9 % [facility] Platelet estimate Decreased (A) [facility] Anisocytosis 2+(A) [facility] Macrocytes 8-15/HPF( A) [facility] WBC counted 106 Cells [facility] RBC morphology Present(A ) [facility] Neutrophil abs 10.78(H) 1.70 - 6.50 K/cumm [facility] Lymphs, abs 0.85 0.80 - 3.30 K/cumm [facility] Monos, abs 0.85(H) 0.20 - 0.80 K/cumm [facility] Eosinophils, abs 0.24 0.00 - 0.50 K/cumm [facility] Immature granulocyte, abs 0.12(H) 0.00 - 0.10 K/cumm [facility] Blood specimen (specimen) 11/29/2017 4:33 AM HARBOR PILOT 11/29/2017 5:14 AM HARBOR PILOT Narrative [facility] - 11/29/2017 6:40 AM HARBOR PILOT us Michael Perrin MD LAB BLOOD ORDERABLES Final Result [facility] [place] [address] * (ABNORMAL) Basic metabolic panel (11/29/2017 4:33 AM HARBOR PILOT) Pathologist [facility] Sodium 136 135 - 145 mmol/L [facility] Potassium, pl 3.9 3.3 - 4.9 mmol/L [facility] Comment:Hemolyzed; (++); pot assium value may be falsely elevated by as much as 0.3 - 0.5 mmol/L. Suggest redraw and reanalysis. Chloride 105 97 - 110 mmol/L [facility] CO2 24 22 - 32 mmol/L [facility] BUN 14 8 - 25 mg/dL [facility] Glucose 91 70 - 199 mg/dL [facility] [...] 2017. Creatinine 0.52(L) 0.80 - 1.30 mg/dL [facility] Calcium 6.8(L) 8.5 - 10.3 mg/dL [facility] Anion gap 6 2 - 15 mmol/L [facility] Blood specimen (specimen) 11/29/2017 4:33 AM HARBOR PILOT 11/29/2017 5:04 AM HARBOR PILOT Narrative [facility] - 11/29/2017 5:51 AM HARBOR PILOT Michael Perrin MD LAB BLOOD ORDERABLES Final Result Performing Organization Address City/[facility]/ZIP Co de Phone Number [facility] [place] [address] * (ABNORMAL) Magnesium (11/29/2017 4:33 AM HARBOR PILOT) Magnesium 1.3(L) 1.4 - 2.5 mg/dL [facility] Blood specimen (specimen) 11/29/2017 4:33 AM HARBOR PILOT 11/29/2017 5:04 AM HARBOR PILOT Narrative [facility] - 11/29/2017 5:51 AM HARBOR PILOT Michael Perrin MD LAB BLOOD ORDERABLES Final Result [facility] [place] [address] * (ABNORMAL) Phosphorus (11/29/2017 4:33 AM HARBOR PILOT) Phosphorus, pl 1.9(L) 2.3 - 4.5 mg/dL [facility] Blood specimen (specimen) 11/29/2017 4:33 AM HARBOR PILOT 11/29/2017 5:04 AM HARBOR PILOT Narrative [facility] - 11/29/2017 5:51 AM HARBOR PILOT Michael Perrin MD LAB BLOOD ORDERABLES Final Result [facility] [place] [address] * (ABNORMAL) CBC without differential (11/29/2017 4:33 AM HARBOR PILOT) [facility] WBC 12.83(H) 3.80 - 9.90 K/cumm [facility] RBC 2.56(L) 4.30 - 5.80 M/cumm [facility] Hgb 8.9(L) 13.0 - 17.5 g/dL [facility] Hct 25.6(L) 38.9 - 50.3 % [facility] MCV 100.0(H) 81.3 - 96.4 fL [facility] MCH 34.8(H) 27.1 - 33.3 pg [facility] MCHC 34.8 32.3 - 35.7 g/dL [facility] RDW CV 16.1(H) 11.1 - 14.9 % [facility] RDW SD 58.7(H) 35.7 - 48.1 fL [facility] NRBC 1.2(H) 0.0 - 0.2 % [facility] NRBC abs 0.16(H) 0.00 - 0.01 K/cumm [facility] Plt 79(L) 150 - 400 K/cumm [facility] MPV 12.3 9.1 - 12.3 fL [facility] Blood specimen (specimen) 11/29/2017 4:33 AM HARBOR PILOT 11/29/2017 5:14 AM HARBOR PILOT Narrative [facility] - 11/29/2017 5:22 AM HARBOR PILOT us Michael Perrin MD LAB BLOOD ORDERABLES Final Result [facility] [place] [address] * Glucose POC (11/28/2017 8:01 PM HARBOR PILOT) Pathologist [facility] Glucose, POC 120 70 - 199 mg/dL [facility] Blood specimen (specimen) 11/28/2017 8:01 PM HARBOR PILOT 11/28/2017 8:01 PM HARBOR PILOT Narrative [facility] - 11/28/2017 8:12 PM HARBOR PILOT Francis Park MD PhD POINT OF CARE TEST ORDER SUBHA Final Result Performing Organization Address City/[facility]/ZIP Co de Phone Number [facility] [place] [address] * Glucose POC (11/28/2017 5:41 PM HARBOR PILOT) Pathologist [facility] Glucose, POC 110 70 - 199 mg/dL [facility] Blood specimen (specimen) 11/28/2017 5:41 PM HARBOR PILOT 11/28/2017 5:41 PM HARBOR PILOT Narrative [facility] - 11/28/2017 6:16 PM HARBOR PILOT Francis Park MD PhD POINT OF CARE TEST ORDER SUBHA Final Result Performing Organization Address [facility] Co de Phone Number [facility] [place] [address] * Glucose POC (11/28/2017 3:04 PM HARBOR PILOT) [facility] Glucose, POC 112 70 - 199 mg/dL [facility] Blood specimen (specimen) 11/28/2017 3:04 PM HARBOR PILOT 11/28/2017 3:04 PM HARBOR PILOT Narrative [facility] - 11/28/2017 3:21 PM HARBOR PILOT Francis Park MD PhD POINT OF CARE TEST ORDER SUBHA Final Result Performing Organization Address City/[facility] Co de Phone Number [facility] [place] [address] * IgG (11/28/2017 12:58 PM HARBOR PILOT) Immunoglobulin G 897.0 700.0 - 1,600.0 mg/dL [facility] Blood specimen (specimen) 11/28/2017 12:58 PM HARBOR PILOT 11/28/2017 2:01 PM HARBOR PILOT Narrative [facility] - 11/28/2017 2:30 PM HARBOR PILOT [place] LAB BLOOD ORDERABLES Final Resul t Performing Organization Address [facility] de Phone Number [facility] [place] [address] * Heparin anti factor Xa activity (11/28/2017 12:58 PM HARBOR PILOT) [facility] Anti Factor Xa 0.47 0.30 - 0.70 IUnits/mL [facility] Comment: Interpretive Data Unfractionated Heparin (UFH)Therapeutic [...] 2011. Blood specimen (specimen) 11/28/2017 12:58 PM HARBOR PILOT 11/28/2017 1:49 PM HARBOR PILOT Narrative [facility] - 11/28/2017 2:25 PM HARBOR PILOT [place] LAB BLOOD ORDERABLES Final Resul t Performing Organization Address [facility] de Phone Number [facility] [place] [address] * Tacrolimus level trough (11/28/2017 8:57 AM HARBOR PILOT) Pathologist [facility] Tacrolimus, trough 4.3 ng/mL [facility] Comment: Interpretive Data The therapeutic range for tacrolimus can vary by transplant organ type and sample timing but a trough range of 5 - 15 ng/mL is typical. Testing performed by liquid chromatography-tandem mass spectrometry (LC- MS/MS).This test was developed using an analyte specific reagent. Its performance characteristics were determined by the [facility] in a manner consistent with CLIA requirements. This test has not been cleared or approved by the U.[place]. Food and Drug Administration. Current interpretive data was last revised on 2016. Blood specimen (specimen) 11/28/2017 8:57 AM HARBOR PILOT 11/28/2017 9:59 AM HARBOR PILOT Narrative [facility] - 11/28/2017 1:05 PM HARBOR PILOT Reena Anderson [facility] BLOOD ORDERABLES Final Resul t [facility] [place] [address] * (ABNORMAL) Basic metabolic panel (11/28/2017 8:57 AM HARBOR PILOT) Sodium 136 135 - 145 mmol/L [facility] Potassium, pl 5.0(H) 3.3 - 4.9 mmol/L [facility] Comment:Hemolyzed; (+++); po tassium value may be falsely elevated by as much as 0.6 - 1.0 mmol/L. Suggest redraw and reanalysis. Chloride 103 97 - 110 mmol/L [facility] CO2 25 22 - 32 mmol/L [facility] BUN 19 8 - 25 mg/dL [facility] Glucose 71 70 - 199 mg/dL [facility] [...] 2017. Creatinine 0.54(L) 0.80 - 1.30 mg/dL [facility] Calcium 7.4(L) 8.5 - 10.3 mg/dL [facility] Anion gap 8 2 - 15 mmol/L [facility] Blood specimen (specimen) 11/28/2017 8:57 AM [facility]OT 11/28/2017 9:42 AM HAR[facility] PILOT Narrative [facility] - 11/28/2017 10:05 AM HAR[facility] PILOT Reena Anderson LAB BLOOD ORDERABLES Final Resul t Performing Organization Address City/[facility]/ZIP Co de Phone Number [facility] [place] [address] * Glucose POC (11/28/2017 8:37 AM HARBOR PILOT) Glucose, POC 83 70 - 199 mg/dL [facility] Blood specimen (specimen) 11/28/2017 8:37 AM HAR[facility] PILOT 11/28/2017 8:37 AM HARBOR PILOT Narrative [facility] - 11/28/2017 8:56 AM HARBOR PILOT Francis Park MD PhD POINT OF CARE TEST ORDER SUBHA Final Result Performing Organization Address City/[facility]/ZIP Co de Phone Number [facility] [place] [address] * Glucose POC (11/28/2017 6:37 AM HARBOR PILOT) Glucose, POC 144 70 - 199 mg/dL [facility] Blood specimen (specimen) 11/28/2017 6:37 AM [facility] PILOT 11/28/2017 6:37 AM HARBOR PILOT Narrative [facility] - 11/28/2017 6:48 AM HARBOR PILOT Francis Park MD PhD POINT OF CARE TEST ORDER SUBHA Final Result [facility] [place] [address] * Type and screen (11/28/2017 4:38 AM HARBOR PILOT) Pathologist [facility] Ursula, indirect Negative [facility] ABO Rh A Positive [facility] Blood specimen (specimen) 11/28/2017 4:38 AM HARB[facility] PILOT 11/28/2017 5:48 AM HARBOR PILOT Narrative [facility] - 11/28/2017 8:37 AM HARBOR PILOT us Dora Abdalla LAB BLOOD BANK TEST ORDERABLES F inal Result Performing Organization Address [facility] de Phone Number [facility] [place] [address] * (ABNORMAL) Creatinine (11/28/2017 3:57 AM HARBOR PILOT) [facility] Creatinine 0.65(L) 0.80 - 1.30 mg/dL [facility] Blood specimen (specimen) 11/28/2017 3:57 AM HARB[facility] PILOT 11/28/2017 5:02 AM HARBOR PILOT Narrative [facility] - 11/28/2017 5:58 AM HARB[facility] PILOT us Reena Anderson LAB BLOOD ORDERABLES Final Resul t Performing Organization Address [facility] de Phone Number [facility] [place] [address] * Protime-INR (11/28/2017 3:57 AM HARBOR PILOT) Pathologist [facility] PT 12.1 8.5 - 13.0 sec [facility] INR 1.13 0.80 - 1.21 [facility] Comment: Interpretive Data Inpatient therapeutic ranges* Atrial fibrillation ?2.0-3.0 INR Venous thrombo-embolism ?2.0-3.0 INR Bioprosthetic heart valve ?* Mechanical heart valve, bileaflet or tilting disk,aortic position ? 2.0-3.0 INR All other,or bileaflet or tilting disk, in mitral position ? 2.5-3.5 INR *See the pharmacy resource directory (PHRED) for an updated copy of the Tool Book at [email or web address] Current Interpretive Data was last revised 2012. Blood specimen (specimen) 11/28/2017 3:57 AM HAR[facility] PILOT 11/28/2017 5:15 AM HARBOR PILOT Narrative [facility] - 11/28/2017 5:32 AM HARBOR PILOT us Kurt Setphenson CRIME SCENE INVESTIGATOR LAB BLOOD ORDERABLES Final R esult [facility] [place] [address] * (ABNORMAL) CBC without differential (11/28/2017 3:57 AM HARBOR PILOT) WBC 18.93(H) 3.80 - 9.90 K/cumm [facility] RBC 3.31(L) 4.30 - 5.80 M/cumm [facility] Hgb 11.2(L) 13.0 - 17.5 g/dL [facility] Hct 32.6(L) 38.9 - 50.3 % [facility] MCV 98.5(H) 81.3 - 96.4 fL [facility] MCH 33.8(H) 27.1 - 33.3 pg [facility] MCHC 34.4 32.3 - 35.7 g/dL [facility] RDW CV 16.5(H) 11.1 - 14.9 % [facility] RDW SD 60.0(H) 35.7 - 48.1 fL [facility] NRBC 1.0(H) 0.0 - 0.2 % [facility] NRBC abs 0.19(H) 0.00 - 0.01 K/cumm [facility] Plt 87(L) 150 - 400 K/cumm [facility] MPV 12.4(H) 9.1 - 12.3 fL [facility] Blood specimen (specimen) 11/28/2017 3:57 AM [facility] PILOT 11/28/2017 5:19 AM HARBOR PILOT Narrative [facility] - 11/28/2017 5:27 AM HARBOR PILOT Kurt Stephenson CRIME SCENE INVESTIGATOR LAB BLOOD ORDERABLES Final R esult Performing Organization Address City/[facility] Co de Phone Number [facility] [place] [address] * Potassium (11/28/2017 12:50 AM HARBOR PILOT) Potassium, pl 4.0 3.3 - 4.9 mmol/L [facility] Blood specimen (specimen) 11/28/2017 12:50 AM HARBOR PILOT 11/28/2017 1:30 AM HARBOR PILOT Narrative [facility] - 11/28/2017 3:14 AM HARBOR PILOT Reena Anderson LAB BLOOD ORDERABLES Final Resul t Performing Organization Address City/[facility]/ZIP Co de Phone Number [facility] [place] [address] * Critical Result Callback Chemistry (11/28/2017 12:50 AM HARB[facility] PILOT) Date Notified [id number] [facility] Time Notified 235 [facility] TestName vancomycin odilia DENT Called/Read Back amanda [facility] Credentials RN [facility] DENT Called By cs [facility] Blood specimen (specimen) 11/28/2017 12:50 AM [facility] PILOT 11/28/2017 1:30 AM HARBOR PILOT Narrative [facility] - 11/28/2017 2:37 AM HARBOR PILOT Reena [employer] LAB BLOOD ORDERABLES Final Resul t Performing Organization Address [facility] de Phone Number [facility] [place] [address] * (ABNORMAL) Vancomycin, trough (11/28/2017 12:50 AM HARBOR PILOT) Vancomycin trough 22.3(C) 10.0 - 20.9 mcg/mL [facility] Blood specimen (specimen) 11/28/2017 12:50 AM HARBOR PILOT 11/28/2017 1:30 AM HARBOR PILOT Narrative [facility] - 11/28/2017 2:32 AM HARBOR PILOT Reena [facility] LAB BLOOD ORDERABLES Final Resul t Performing Organization Address [facility] Co de Phone Number [facility] [place] [address] * Glucose POC (11/27/2017 10:35 PM HARBOR PILOT) Glucose, POC 82 70 - 199 mg/dL [facility] Blood specimen (specimen) 11/27/2017 10:35 PM HARBOR PILOT 11/27/2017 10:35 PM HARBOR PILOT Narrative [facility] - 11/27/2017 10:53 PM HARBOR PILOT Francis Park MD PhD POINT OF CARE TEST ORDER SUBHA Final Result Performing Organization Address [facility] Co de Phone Number [facility] [place] [address] * Glucose POC (11/27/2017 9:32 PM HARBOR PILOT) Glucose, POC 76 70 - 199 mg/dL [facility] Blood specimen (specimen) 11/27/2017 9:32 PM HARBOR PILOT 11/27/2017 9:32 PM HARBOR PILOT Narrative [facility] - 11/27/2017 10:15 PM HARBOR PILOT us Francis Park MD PhD POINT OF CARE TEST ORDER SUBHA Final Result Performing Organization Address [facility] Co de Phone Number [facility] [place] [address] * Glucose POC (11/27/2017 6:04 PM HARBOR PILOT) Glucose, POC 79 70 - 199 mg/dL [facility] Blood specimen (specimen) 11/27/2017 6:04 PM HARBOR PILOT 11/27/2017 6:04 PM HARBOR PILOT Narrative [facility] - 11/27/2017 6:17 PM HARBOR PILOT us Francis Park MD PhD POINT OF CARE TEST ORDER SUBHA Final Result Performing Organization Address [facility] de Phone Number [facility] [place] [address] * Glucose POC (11/27/2017 11:20 AM HARBOR PILOT) Glucose, POC 86 70 - 199 mg/dL [facility] Blood specimen (specimen) 11/27/2017 11:20 AM HARBOR PILOT 11/27/2017 11:20 AM HARBOR PILOT Narrative [facility] - 11/27/2017 11:40 AM HARBOR PILOT us Francis Park MD PhD POINT OF CARE TEST ORDER SUBHA Final Result Performing Organization Address [facility] [place] [address] * Glucose POC (11/27/2017 9:29 AM HARBOR PILOT) Glucose, POC 85 70 - 199 mg/dL [facility] Blood specimen (specimen) 11/27/2017 9:29 AM HARBOR PILOT 11/27/2017 9:29 AM HARBOR PILOT Narrative [facility] - 11/27/2017 9:49 AM [facility] us Francis Park MD PhD POINT OF CARE TEST ORDER SUBHA Final Result [facility] [place] [address] * (ABNORMAL) Comprehensive metabolic panel (11/27/2017 4:03 AM HARBOR PILOT) Pathologist [facility] Sodium 141 135 - 145 mmol/L [facility] Potassium, pl 4.5 3.3 - 4.9 mmol/L [facility] Comment:Hemolyzed; (++); pot assium value may be falsely elevated by as much as 0.3 - 0.5 mmol/L. Suggest redraw and reanalysis. CO2 28 22 - 32 mmol/L [facility] BUN 30(H) 8 - 25 mg/dL [facility] Glucose 73 70 - 199 mg/dL [facility] [...] 2017. Creatinine 0.66(L) 0.80 - 1.30 mg/dL [facility] Calcium 7.9(L) 8.5 - 10.3 mg/dL [facility] Chloride 106 97 - 110 mmol/L [facility] Albumin 2.1(L) 3.5 - 5.0 g/dL [facility] AST 50 10 - 50 Units/L [facility] Comment:Hemolyzed; result ma y be falsely elevated. ALT 31 7 - 55 Units/L [facility] Alk phos 294(H) 40 - 130 Units/L [facility] Bilirubin, total 0.6 0.1 - 1.2 mg/dL [facility] Protein, pl 5.2(L) 6.5 - 8.5 g/dL [facility] Anion gap 7 2 - 15 mmol/L [facility] Blood specimen (specimen) 11/27/2017 4:03 AM HARB[facility] PILOT 11/27/2017 5:52 AM HARBOR PILOT Narrative [facility] - 11/27/2017 6:56 AM HARBOR PILOT us Kurt Stephenson CRIME SCENE INVESTIGATOR LAB BLOOD ORDERABLES Final R esult Performing Organization Address [facility]/ZIP Co de Phone Number [facility] [place] [address] * Magnesium (11/27/2017 4:03 AM HARBOR PILOT) Magnesium 2.2 1.4 - 2.5 mg/dL [facility] Blood specimen (specimen) 11/27/2017 4:03 AM HARBOR PILOT 11/27/2017 5:52 AM HARBOR PILOT Narrative [facility] - 11/27/2017 6:56 AM HARBOR PILOT us Kurt Stephenson CRIME SCENE INVESTIGATOR LAB BLOOD ORDERABLES Final R esult Performing Organization Address [facility]/ZIP Co de Phone Number [facility] [place] [address] * (ABNORMAL) Phosphorus (11/27/2017 4:03 AM HARBOR PILOT) Phosphorus, pl 1.6(L) 2.3 - 4.5 mg/dL [facility] Blood specimen (specimen) 11/27/2017 4:03 AM HARBOR PILOT 11/27/2017 5:52 AM HARBOR PILOT Narrative [facility] - 11/27/2017 6:56 AM HARBOR PILOT us Kurt Stephenson CRIME SCENE INVESTIGATOR LAB BLOOD ORDERABLES Final R esult Performing Organization Address [facility] Co de Phone Number [facility] [place] [address] * Heparin anti factor Xa activity (11/27/2017 1:18 AM HARBOR PILOT) Pathologist [facility] Anti Factor Xa 0.46 0.30 - 0.70 IUnits/mL [facility] Comment: Interpretive Data Unfractionated Heparin (UFH)Therapeutic [...] 2011. Blood specimen (specimen) 11/27/2017 1:18 AM HARBOR PILOT 11/27/2017 2:25 AM HARBOR PILOT Narrative [facility] - 11/27/2017 2:52 AM HARBOR PILOT Anais Chou NP LAB BLOOD ORDERABLES Final Result Performing Organization Address [facility] Co de Phone Number [facility] [place] [address] * (ABNORMAL) Basic metabolic panel (11/27/2017 1:12 AM HARBOR PILOT) Pathologist [facility] Sodium 140 135 - 145 mmol/L [facility] Potassium, pl See Comment 3.3 - 4.9 mmol/L [facility] Comment:CRDT; Grossly Hemoly zed sample; Unable to test. Chloride 107 97 - 110 mmol/L [facility] CO2 27 22 - 32 mmol/L [facility] BUN 32(H) 8 - 25 mg/dL [facility] Glucose 94 70 - 199 mg/dL [facility] [...] 2017. Creatinine 0.64(L) 0.80 - 1.30 mg/dL [facility] Calcium 7.8(L) 8.5 - 10.3 mg/dL [facility] Anion gap 6 2 - 15 mmol/L [facility] Blood specimen (specimen) 11/27/2017 1:12 AM HARBOR PILOT 11/27/2017 2:34 AM HARBOR PILOT Narrative [facility] - 11/27/2017 3:01 AM HARBOR PILOT Kurt Stephenson CRIME SCENE INVESTIGATOR LAB BLOOD ORDERABLES Final R esult Performing Organization Address City/[facility]/ZIP Co de Phone Number [facility] [place] [address] * Magnesium (11/27/2017 1:12 AM HARBOR PILOT) [facility] Magnesium 2.3 1.4 - 2.5 mg/dL [facility] Blood specimen (specimen) 11/27/2017 1:12 AM HARBOR PILOT 11/27/2017 2:34 AM HARBOR PILOT Narrative [facility] - 11/27/2017 3:01 AM HARBOR PILOT Kurt Stephenson CRIME SCENE INVESTIGATOR LAB BLOOD ORDERABLES Final R esult [facility] [place] [address] * (ABNORMAL) Phosphorus (11/27/2017 1:12 AM HARBOR PILOT) [facility] Phosphorus, pl 1.7(L) 2.3 - 4.5 mg/dL [facility] Comment:Hemolyzed; result ma y be falsely elevated. Blood specimen (specimen) 11/27/2017 1:12 AM HARBOR PILOT 11/27/2017 2:34 AM HARBOR PILOT Narrative [facility] - 11/27/2017 3:01 AM [facility] us Kurt Stephenson CRIME SCENE INVESTIGATOR LAB BLOOD ORDERABLES Final R esult [facility] [place] [address] * Protime-INR (11/27/2017 1:12 AM HARBOR PILOT) [facility] PT 11.1 8.5 - 13.0 sec [facility] INR 1.04 0.80 - 1.21 [facility] Comment: Interpretive Data Inpatient therapeutic ranges* Atrial fibrillation ?2.0-3.0 INR Venous thrombo-embolism ?2.0-3.0 INR Bioprosthetic heart valve ?* Mechanical heart valve, bileaflet or tilting disk,aortic position ? 2.0-3.0 INR All other,or bileaflet or tilting disk, in mitral position ? 2.5-3.5 INR *See the pharmacy resource directory (PHRED) for an updated copy of the Tool Book at [email or web address] Current Interpretive Data was last revised 2012. Blood specimen (specimen) 11/27/2017 1:12 AM HARBOR PILOT 11/27/2017 2:25 AM HARBOR PILOT Narrative [facility] - 11/27/2017 2:53 AM HARBOR PILOT us Kurt Stephenson CRIME SCENE INVESTIGATOR LAB BLOOD ORDERABLES Final R esult [facility] [place] [address] * (ABNORMAL) CBC without differential (11/27/2017 1:12 AM HARBOR PILOT) [facility] WBC 30.70(H) 3.80 - 9.90 K/cumm [facility] RBC 3.00(L) 4.30 - 5.80 M/cumm [facility] Hgb 10.5(L) 13.0 - 17.5 g/dL [facility] Hct 29.4(L) 38.9 - 50.3 % [facility] MCV 98.0(H) 81.3 - 96.4 fL [facility] MCH 35.0(H) 27.1 - 33.3 pg [facility] MCHC 35.7 32.3 - 35.7 g/dL [facility] RDW CV 17.5(H) 11.1 - 14.9 % [facility] RDW SD 62.5(H) 35.7 - 48.1 fL [facility] NRBC 0.4(H) 0.0 - 0.2 % [facility] NRBC abs 0.11(H) 0.00 - 0.01 K/cumm [facility] Plt 70(L) 150 - 400 K/cumm [facility] MPV 13.3(H) 9.1 - 12.3 fL [facility] Blood specimen (specimen) 11/27/2017 1:12 AM HARB[facility] PILOT 11/27/2017 2:06 AM HARBOR PILOT Narrative [facility] - 11/27/2017 3:21 AM HARB[facility] PILOT us Kurt Stephenson CRIME SCENE INVESTIGATOR LAB BLOOD ORDERABLES Final R esult [facility] [place] [address] * Glucose POC (11/26/2017 8:32 PM HARBOR PILOT) Glucose, POC 136 70 - 199 mg/dL [facility] Blood specimen (specimen) 11/26/2017 8:32 PM HARBOR PILOT 11/26/2017 8:32 PM HARBOR PILOT Narrative [facility] - 11/26/2017 8:51 PM [facility] PILOT us Francis Park MD PhD POINT OF CARE TEST ORDER SUBHA Final Result [facility] [place] [address] * (ABNORMAL) Glucose POC (11/26/2017 6:01 PM HARBOR PILOT) Glucose, POC 220(H) 70 - 199 mg/dL [facility] Blood specimen (specimen) 11/26/2017 6:01 PM HARBOR PILOT 11/26/2017 6:01 PM HARBOR PILOT Narrative [facility] - 11/26/2017 6:14 PM HARBOR PILOT us Francis Park MD PhD POINT OF CARE TEST ORDER SUBHA Final Result Performing Organization Address City/[facility]/ZIP Co de Phone Number [facility] [place] [address] * Glucose POC (11/26/2017 12:05 PM HARBOR PILOT) Glucose, POC 167 70 - 199 mg/dL [facility] Blood specimen (specimen) 11/26/2017 12:05 PM HARBOR PILOT 11/26/2017 12:05 PM HARBOR PILOT Narrative [facility] - 11/26/2017 12:17 PM HARBOR PILOT us Sourav Callejas MD POINT OF CARE TEST ORDERABLES Final Result [facility] [place] [address] * Clostridium difficile assay (11/26/2017 10:31 AM HARBOR PILOT) Report Final Report: Negative for: Clostridium difficile toxin. [facility] Stool 11/26/2017 10:3 1 AM HARBOR PILOT 11/26/2017 10:32 AM HARBOR PILOT Narrative [facility] - 11/26/2017 10:32 AM HARB[facility] PILOT us Johnathon Nuñez CRIME SCENE INVESTIGATOR LAB MICROBIOLOGY - GENERAL ORDERABLES Final Result Performing Organization Address City/[facility]/ZIP Co de Phone Number [facility] [place] [address] * VRE culture, surveillance (11/26/2017 10:30 AM HARBOR PILOT) Report Final Report: Negative [facility] Stool 11/26/2017 10:3 0 AM HARBOR PILOT 11/27/2017 6:35 AM HARBOR PILOT Narrative [facility] - 11/28/2017 7:21 AM HARBOR PILOT us Francis Park MD PhD LAB MICROBIOLOGY - GENER AL ORDERABLES Final Result Performing Organization Address [facility] Co de Phone Number [facility] [place] [address] * XR Chest 1 Vw (11/26/2017 9:37 AM HARBOR PILOT) Anatomical Region Laterality Modality Body, Chest N/A Radiographic Tiffany ging 11/26/2017 9:37 AM HARBOR PILOT Narrative 11/26/2017 12:32 PM HAR[facility] PILOT ZACH LAURENT M.D. FINAL REPORT ACC# ??Date Time ??Exam [id number] Nov 26, 2017 03:37:00 [id number] Chest 1 view Frontal EXAMINATION: ??1 view [...] LAURENT M.D. on Nov ?? 2018 ??6:30A [id number] LAURENT M.D. FINAL REPORT Attending: ??MARCELINA, ??SOURAV Requesting: ??TAMIA, ??JOHNATHON Requesting Fax: ?? Attending Fax: ?? Attending ID: ??[id number] Requesting ID: ??[id number] Report To 1 ID: ??[id number] ? Report To 1 Name: ??, ?? Report To 1 FAX: ?? NextGen Order #: ?? Procedure Note Miscellaneous, Not In File - 11/26/2017 ZACH LAURENT M.D. FINAL REPORT ACC# Date Time Exam [id number] Nov 26, 2017 03:37:00 [id number] Chest 1 view Frontal EXAMINATION: 1 view [...] LAURENT M.D. on Nov 26 2017 6:30A [id number] LAURENT M.D. FINAL REPORT Attending: SOURAV CALLEJAS Requesting: JOHNATHON NUÑEZ Requesting Fax: Attending Fax: Attending ID: [id number] Requesting ID: [id number] Report To 1 ID: [id number] Report To 1 Name: , Report To 1 FAX: NextGen Order #: us Johnathon Nuñez CRIME SCENE INVESTIGATOR IMG XR PROCEDURES Final Re sult * Glucose POC (11/26/2017 8:00 AM HARBOR PILOT) Pathologist [facility] Glucose, POC 123 70 - 199 mg/dL [facility] Blood specimen (specimen) 11/26/2017 8:00 AM [facility] PILOT 11/26/2017 8:00 AM [facility] PILOT Narrative [facility] - 11/26/2017 8:11 AM [facility] P[facility]OT us Sourav Callejas MD POINT OF CARE TEST ORDERABLES Final Result [facility] [place] [address] * (ABNORMAL) Differential, auto (11/26/2017 4:35 AM HARBOR PILOT) [facility] Neutrophil pct 88.2 % [facility] Imm gran pct 3.0 % [facility] Lymphocyte pct 5.3 % [facility] Monocyte pct 3.0 % [facility] Eosinophil pct 0.0 % [facility] Basophil pct 0.5 % [facility] Neutrophil abs 34.69(H) 1.70 - 6.50 K/cumm [facility] Imm gran abs 1.16(H) 0.00 - 0.10 K/cumm [facility] Lymphocyte abs 2.07 0.80 - 3.30 K/cumm [facility] Monocyte abs 1.17(H) 0.20 - 0.80 K/cumm [facility] Eosinophil abs 0.00 0.00 - 0.50 K/cumm [facility] Basophil abs 0.18(H) 0.00 - 0.10 K/cumm [facility] Blood specimen (specimen) 11/26/2017 4:35 AM [facility] 11/26/2017 4:23 AM [facility] PILOT Narrative [facility] - 11/26/2017 5:16 AM [facility] PILOT us Johnathon Nuñez CRIME SCENE INVESTIGATOR LAB BLOOD ORDERABLES Final Result Performing Organization Address City/[facility]/ZIP Co de Phone Number [facility] [place] [address] * Protime-INR (11/26/2017 4:35 AM HARBOR PILOT) [facility] PT 12.0 8.5 - 13.0 sec [facility] INR 1.12 0.80 - 1.21 [facility] Comment: Interpretive Data Inpatient therapeutic ranges* Atrial fibrillation ?2.0-3.0 INR Venous thrombo-embolism ?2.0-3.0 INR Bioprosthetic heart valve ?* Mechanical heart valve, bileaflet or tilting disk,aortic position ? 2.0-3.0 INR All other,or bileaflet or tilting disk, in mitral position ? 2.5-3.5 INR *See the pharmacy resource directory (PHRED) for an updated copy of the Tool Book at [email or web address] Current Interpretive Data was last revised 2012. Blood specimen (specimen) 11/26/2017 4:35 AM [facility] PILOT 11/26/2017 4:37 AM HARB[facility] PILOT Narrative [facility] - 11/26/2017 5:00 AM HARBOR PILOT Johnathon Nuñez CRIME SCENE INVESTIGATOR LAB BLOOD ORDERABLES Final Result [facility] [place] [address] * (ABNORMAL) CBC with auto differential (11/26/2017 4:35 AM HARBOR PILOT) [facility] WBC 39.27(H) 3.80 - 9.90 K/cumm [facility] RBC 3.16(L) 4.30 - 5.80 M/cumm [facility] Hgb 10.9(L) 13.0 - 17.5 g/dL [facility] Hct 30.7(L) 38.9 - 50.3 % [facility] MCV 97.2(H) 81.3 - 96.4 fL [facility] MCH 34.5(H) 27.1 - 33.3 pg [facility] MCHC 35.5 32.3 - 35.7 g/dL [facility] RDW CV 16.5(H) 11.1 - 14.9 % [facility] RDW SD 58.9(H) 35.7 - 48.1 fL [facility] Plt 78(L) 150 - 400 K/cumm [facility] MPV 12.2 9.1 - 12.3 fL [facility] NRBC 0.2 0.0 - 0.2 % [facility] NRBC abs 0.07(H) 0.00 - 0.01 K/cumm [facility] Blood specimen (specimen) 11/26/2017 4:35 AM HARBOR PILOT 11/26/2017 4:23 AM HARBOR PILOT Narrative [facility] - 11/26/2017 4:32 AM HARBOR PILOT us Johnathon Nuñez NP LAB BLOOD ORDERABLES Final Result [facility] [place] [address] * Glucose POC (11/26/2017 4:08 AM HARBOR PILOT) [facility] Glucose, POC 167 70 - 199 mg/dL [facility] Blood specimen (specimen) 11/26/2017 4:08 AM HARBOR PILOT 11/26/2017 4:08 AM HARBOR PILOT Narrative [facility] - 11/26/2017 4:19 AM HARBOR PILOT us Sourav Callejas MD POINT OF CARE TEST ORDERABLES Final Result [facility] [place] [address] * (ABNORMAL) Comprehensive metabolic panel (11/26/2017 3:58 AM HARBOR PILOT) Sodium 137 135 - 145 mmol/L [facility] Potassium, pl 4.1 3.3 - 4.9 mmol/L [facility] CO2 27 22 - 32 mmol/L [facility] BUN 39(H) 8 - 25 mg/dL [facility] Glucose 161 70 - 199 mg/dL [facility] [...] 2017. Creatinine 0.77(L) 0.80 - 1.30 mg/dL [facility] Calcium 8.1(L) 8.5 - 10.3 mg/dL [facility] Chloride 107 97 - 110 mmol/L [facility] Albumin 2.2(L) 3.5 - 5.0 g/dL [facility] AST 38 10 - 50 Units/L [facility] ALT 28 7 - 55 Units/L [facility] Alk phos 215(H) 40 - 130 Units/L [facility] Bilirubin, total 0.7 0.1 - 1.2 mg/dL [facility] Protein, pl 5.5(L) 6.5 - 8.5 g/dL [facility] Anion gap 3 2 - 15 mmol/L [facility] Blood specimen (specimen) 11/26/2017 3:58 AM HARBOR PILOT 11/26/2017 3:58 AM HARBOR PILOT Narrative [facility] - 11/26/2017 5:05 AM HARBOR PILOT Sourav Callejas MD LAB BLOOD ORDERABLES Final Res ult Performing Organization Address [facility] de Phone Number [facility] [place] [address] * (ABNORMAL) Magnesium (11/26/2017 3:58 AM HARBOR PILOT) Magnesium 2.8(H) 1.4 - 2.5 mg/dL [facility] Blood specimen (specimen) 11/26/2017 3:58 AM HARBOR PILOT 11/26/2017 3:58 AM HARBOR PILOT Narrative [facility] - 11/26/2017 5:05 AM HARBOR PILOT Sourav Callejas MD LAB BLOOD ORDERABLES Final Res ult Performing Organization Address [facility] de Phone Number [facility] [place] [address] * (ABNORMAL) Phosphorus (11/26/2017 3:58 AM HARBOR PILOT) Phosphorus, pl 1.4(L) 2.3 - 4.5 mg/dL [facility] Blood specimen (specimen) 11/26/2017 3:58 AM HARBOR PILOT 11/26/2017 3:58 AM HARBOR PILOT Narrative [facility] - 11/26/2017 5:05 AM HARBOR PILOT Sourav Callejas MD LAB BLOOD ORDERABLES Final Res ult Performing Organization Address [facility] [place] [address] * Lipase (11/26/2017 3:58 AM HARBOR PILOT) Lipase 55 10 - 99 Units/L [facility] Blood specimen (specimen) 11/26/2017 3:58 AM HARBOR PILOT 11/26/2017 3:58 AM HARBOR PILOT Narrative [facility] - 11/26/2017 5:05 AM HARBOR PILOT Sourav Callejas MD LAB BLOOD ORDERABLES Final Res ult Performing Organization Address [facility] de Phone Number [facility] [place] [address] * Glucose POC (11/26/2017 12:01 AM HARBOR PILOT) Glucose, POC 150 70 - 199 mg/dL [facility] Blood specimen (specimen) 11/26/2017 12:01 AM HARBOR PILOT 11/26/2017 12:01 AM HARBOR PILOT Narrative [facility] - 11/26/2017 12:11 AM HARBOR PILOT Sourav Callejas MD POINT OF CARE TEST ORDERABLES Final Result Performing Organization Address [facility] de Phone Number [facility] [place] [address] * Glucose POC (11/25/2017 8:21 PM HARBOR PILOT) Glucose, POC 177 70 - 199 mg/dL [facility] Blood specimen (specimen) 11/25/2017 8:21 PM HARBOR PILOT 11/25/2017 8:21 PM HARBOR PILOT Narrative [facility] - 11/25/2017 8:32 PM HARBOR PILOT Sourav Callejas MD POINT OF CARE TEST ORDERABLES Final Result Performing Organization Address [facility] [place] [address] * Glucose POC (11/25/2017 4:28 PM HARBOR PILOT) Glucose, POC 154 70 - 199 mg/dL [facility] Blood specimen (specimen) 11/25/2017 4:28 PM HARBOR PILOT 11/25/2017 4:28 PM HARBOR PILOT Narrative [facility] - 11/25/2017 4:41 PM HARBOR PILOT us Sourav Callejas MD POINT OF CARE TEST ORDERABLES Final Result [facility] [place] [address] * XR Interpretation Of Outside Films (11/25/2017 3:07 PM HARBOR PILOT) Anatomical Region Laterality Modality N/A Radiographic Tiffany ging 11/25/2017 3:07 PM HARBOR PILOT Narrative 11/25/2017 3:39 PM HARBOR PILOT SUPRIYA VAUGHN M.D. FINAL REPORT ACC# ??Date Time ??Exam [id number] Nov 25, 2017 09:07:00 [id number] Body [facility] Consult EXAMINATION: ??CHANGE CONSULT [...] VAUGHN M.D. on Nov 25 2017 ??9:37A [id number] VAUGHN M.D. FINAL REPORT Attending: ??MARCELINA, ??SOURAV Requesting: ??JOHN, ??LORI Requesting Fax: ?? Attending Fax: ?? Attending ID: ??[id number] Requesting ID: ??[id number] Report To 1 ID: ??[id number] ? Report To 1 Name: ??, ?? Report To 1 FAX: ?? NextGen Order #: ?? Procedure Note Miscellaneous, Not In File - 11/25/2017 SUPRIYA VAUGHN M.D. FINAL REPORT ACC# Date Time Exam [id number] Nov 25, 2017 09:07:00 [id number] Body [facility] Consult EXAMINATION: CHANGE CONSULT [...] VAUGHN M.D. on Nov 25 2017 9:37A [id number] VAUGHN M.D. FINAL REPORT Attending: SOURAV CALLEJAS Requesting: LORI LOPEZ Requesting Fax: Attending Fax: Attending ID: [id number] Requesting ID: [id number] Report To 1 ID: [id number] Report To 1 Name: , Report To 1 FAX: NextGen Order #: us Lori Lopez IMG XR PROCEDURES Final Result * Glucose POC (11/25/2017 12:01 PM HARBOR PILOT) Glucose, POC 125 70 - 199 mg/dL [facility] Blood specimen (specimen) 11/25/2017 12:01 PM HARBOR PILOT 11/25/2017 12:01 PM HARBOR PILOT [facility] - 11/25/2017 12:13 PM HARBOR PILOT Sourav Callejas MD POINT OF CARE TEST ORDERABLES Final Result [facility] [place] [address] * XR Chest 1 Vw (11/25/2017 11:26 AM HARBOR PILOT) Anatomical Region Laterality Modality Body, Chest N/A Radiographic Tiffany ging 11/25/2017 11:2 6 AM HARBOR PILOT Narrative 11/25/2017 2:43 PM HARBOR PILOT BHAVIN OCHOA M.D. FINAL REPORT ACC# ??Date Time ??Exam [id number] Nov 25, 2017 05:26:00 [id number] Chest 1 view Frontal EXAMINATION: ??1 view [...] Bhavin Ochoa M.D. Requested By: JOHNATHON NUÑEZ [facility] Dictated By: ?? BHAVIN OCHOA M.D. ??on Nov ??2017 ??8:41A This document has been electronically signed by: BHAVIN OCHOA M.D. on Nov ??2017 ??8:41A [id number] OCHOA M.D. FINAL REPORT Attending: ??MARCELINA, ??SOURAV Requesting: ??TAMIA, ??JOHNATHON Requesting Fax: ?? Attending Fax: ?? Attending ID: ??[id number] Requesting ID: ??[id number] Report To 1 ID: ??[id number] ? Report To 1 Name: ??, ?? Report To 1 FAX: ?? NextGen Order #: ?? Procedure Note Miscellaneous, Not In File - 11/25/2017 BHAVIN OCHOA M.D. FINAL REPORT ACC# Date Time Exam [id number] Nov 25, 2017 05:26:00 [id number] Chest 1 view Frontal EXAMINATION: 1 view [...] Bhavin Ochoa M.D. Requested By: JOHNATHON NUÑEZ [facility] Dictated By: BHAVIN OCHOA M.D. on Nov 25 2017 8:41A This document has been electronically signed by: BHAVIN OCHOA M.D. on Nov 25 2017 8:41A [id number] OCHOA M.D. FINAL REPORT Attending: SOURAV CALLEJAS Requesting: JOHNATHON NUÑEZ Requesting Fax: Attending Fax: Attending ID: [id number] Requesting ID: [id number] Report To 1 ID: [id number] Report To 1 Name: , Report To 1 FAX: NextGen Order #: Johnathon Nuñez [employer] INVESTIGATOR IMG XR PROCEDURES Final Re sult * (ABNORMAL) POCT arterial blood gas, CPB (11/25/2017 8:52 AM HARBOR PILOT) pH, art POC 7.48(H) 7.35 - 7.45 [facility] pCO2, art POC 38 35 - 45 mmHg [facility] pO2, art POC 58(L) 80 - 105 mmHg [facility] Na POC 139 135 - 145 mmol/L [facility] K POC 4.3 3.3 - 4.9 mmol/L [facility] Ionized Ca, POC 4.89 4.50 - 5.10 mg/dL [facility] Hematocrit POC 37.0(L) 38.9 - 50.3 % [facility] Glucose POC GEM 3000 120 70 - 199 mg/dL [facility] Lactate POC GEM 3000 1.5 0.7 - 2.2 mmol/L [facility] HCO3, art POC 28 20 - 30 mmol/L [facility] Total CO2, art POC 30 21 - 30 mmol/L [facility] BE, art POC 4.6 mmol/L [facility] O2 sat art POC 92(L) 95 - 98 % [facility] Blood specimen (specimen) 11/25/2017 8:52 AM HARBOR PILOT 11/25/2017 8:52 AM HARBOR PILOT Narrative [facility] - 11/25/2017 9:16 AM HARBOR PILOT Sourav Callejas MD LAB POCT ORDERABLES - DEVICE F inal Result Performing Organization Address [facility] Co de Phone Number [facility] [place] [address] * Glucose POC (11/25/2017 8:52 AM HARBOR PILOT) Glucose, POC 91 70 - 199 mg/dL [facility] Blood specimen (specimen) 11/25/2017 8:52 AM HARBOR PILOT 11/25/2017 8:52 AM HARBOR PILOT Narrative [facility] - 11/25/2017 9:06 AM HARBOR PILOT Sourav Callejas MD POINT OF CARE TEST ORDERABLES Final Result [facility] [place] [address] * Glucose POC (11/25/2017 4:07 AM HARBOR PILOT) Glucose, POC 117 70 - 199 mg/dL [facility] Blood specimen (specimen) 11/25/2017 4:07 AM HARBOR PILOT 11/25/2017 4:07 AM HARBOR PILOT Narrative [facility] - 11/25/2017 4:18 AM HARBOR PILOT Sourav Callejas MD POINT OF CARE TEST ORDERABLES Final Result [facility] [place] [address] * Lipase (11/25/2017 12:17 AM HARBOR PILOT) [facility] Lipase 12 10 - 99 Units/L [facility] Blood specimen (specimen) 11/25/2017 12:17 AM HARBOR PILOT 11/25/2017 12:56 AM HARBOR PILOT Narrative [facility] - 11/25/2017 7:32 AM HARBOR PILOT Johnathon Nuñez NP LAB BLOOD ORDERABLES Final Result Performing Organization Address [facility] Co de Phone Number [facility] [place] [address] * (ABNORMAL) Differential, auto (11/25/2017 12:17 AM HARBOR PILOT) [facility] Neutrophil pct 90.6 % [facility] Imm gran pct 1.0 % [facility] Lymphocyte pct 4.1 % [facility] Monocyte pct 4.3 % [facility] Eosinophil pct 0.0 % [facility] Basophil pct 0.0 % [facility] Neutrophil abs 23.37(H) 1.70 - 6.50 K/cumm [facility] Imm gran abs 0.26(H) 0.00 - 0.10 K/cumm [facility] Lymphocyte abs 1.05 0.80 - 3.30 K/cumm [facility] Monocyte abs 1.11(H) 0.20 - 0.80 K/cumm [facility] Eosinophil abs 0.00 0.00 - 0.50 K/cumm [facility] Basophil abs 0.01 0.00 - 0.10 K/cumm [facility] Blood specimen (specimen) 11/25/2017 12:17 AM HARBOR PILOT 11/25/2017 12:55 AM HARBOR PILOT Narrative [facility] - 11/25/2017 1:44 AM HARBOR PILOT Johnathon Nuñez NP LAB BLOOD ORDERABLES Final Result [facility] [place] [address] * (ABNORMAL) Comprehensive metabolic panel (11/25/2017 12:17 AM HARBOR PILOT) Sodium 139 135 - 145 mmol/L [facility] Potassium, pl 4.4 3.3 - 4.9 mmol/L [facility] CO2 28 22 - 32 mmol/L [facility] BUN 31(H) 8 - 25 mg/dL [facility] Glucose 129 70 - 199 mg/dL [facility] [...] 2017. Creatinine 0.80 0.80 - 1.30 mg/dL [facility] Calcium 8.2(L) 8.5 - 10.3 mg/dL [facility] Chloride 106 97 - 110 mmol/L [facility] Albumin 2.2(L) 3.5 - 5.0 g/dL [facility] AST 45 10 - 50 Units/L [facility] ALT 27 7 - 55 Units/L [facility] Alk phos 95 40 - 130 Units/L [facility] Bilirubin, total 0.9 0.1 - 1.2 mg/dL [facility] Protein, pl 5.4(L) 6.5 - 8.5 g/dL [facility] Anion gap 5 2 - 15 mmol/L [facility] Blood specimen (specimen) 11/25/2017 12:17 AM HARBOR PILOT 11/25/2017 12:56 AM HARBOR PILOT Narrative [facility] - 11/25/2017 1:25 AM HARBOR PILOT Johnathon Nuñez [employer]ENE INVESTIGATOR LAB BLOOD ORDERABLES Final Result Performing Organization Address [facility] [place] [address] * (ABNORMAL) Magnesium (11/25/2017 12:17 AM HARBOR PILOT) Magnesium 3.0(H) 1.4 - 2.5 mg/dL [facility] Blood specimen (specimen) 11/25/2017 12:17 AM HARBOR PILOT 11/25/2017 12:56 AM HARBOR PILOT Narrative [facility] - 11/25/2017 1:25 AM HARBOR PILOT Johnathon Nuñez [employer] SCENE INVESTIGATOR LAB BLOOD ORDERABLES Final Result Performing Organization Address [facility] de Phone Number [facility] [place] [address] * (ABNORMAL) Phosphorus (11/25/2017 12:17 AM HARBOR PILOT) Phosphorus, pl 1.6(L) 2.3 - 4.5 mg/dL [facility] Blood specimen (specimen) 11/25/2017 12:17 AM HARBOR PILOT 11/25/2017 12:56 AM HARBOR PILOT Narrative [facility] - 11/25/2017 1:25 AM HARBOR PILOT Johnathon Nuñez [employer] SCENE INVESTIGATOR LAB BLOOD ORDERABLES Final Result Performing Organization Address [facility] [place] [address] * Vancomycin, trough (11/25/2017 12:17 AM HARBOR PILOT) Vancomycin trough 17.7 10.0 - 20.9 mcg/mL [facility] Blood specimen (specimen) 11/25/2017 12:17 AM HARBOR PILOT 11/25/2017 12:55 AM HARBOR PILOT Narrative [facility] - 11/25/2017 1:24 AM HARBOR PILOT us Anais Chou [employer] INVESTIGATOR LAB BLOOD ORDERABLES Final Result [facility] [place] [address] * (ABNORMAL) CBC with auto differential (11/25/2017 12:17 AM HARBOR PILOT) [facility] WBC 25.80(H) 3.80 - 9.90 K/cumm [facility] RBC 3.26(L) 4.30 - 5.80 M/cumm [facility] Hgb 11.1(L) 13.0 - 17.5 g/dL [facility] Hct 31.9(L) 38.9 - 50.3 % [facility] MCV 97.9(H) 81.3 - 96.4 fL [facility] MCH 34.0(H) 27.1 - 33.3 pg [facility] MCHC 34.8 32.3 - 35.7 g/dL [facility] RDW CV 16.3(H) 11.1 - 14.9 % [facility] RDW SD 58.4(H) 35.7 - 48.1 fL [facility] Plt 95(L) 150 - 400 K/cumm [facility] MPV 11.2 9.1 - 12.3 fL [facility] NRBC 0.0 0.0 - 0.2 % [facility] NRBC abs 0.00 0.00 - 0.01 K/cumm [facility] Blood specimen (specimen) 11/25/2017 12:17 AM HARBOR PILOT 11/25/2017 12:55 AM HARBOR PILOT Narrative [facility] - 11/25/2017 1:44 AM HARBOR PILOT us Johnathon Nuñez [employer] INVESTIGATOR LAB BLOOD ORDERABLES Final Result [facility] [place] [address] * (ABNORMAL) Protime-INR (11/25/2017 12:17 AM HARBOR PILOT) PT 14.2(H) 8.5 - 13.0 sec [facility] INR 1.32(H) 0.80 - 1.21 [facility] Comment: Interpretive Data Inpatient therapeutic ranges* Atrial fibrillation ?2.0-3.0 INR Venous thrombo-embolism ?2.0-3.0 INR Bioprosthetic heart valve ?* Mechanical heart valve, bileaflet or tilting disk,aortic position ? 2.0-3.0 INR All other,or bileaflet or tilting disk, in mitral position ? 2.5-3.5 INR *See the pharmacy resource directory (PHRED) for an updated copy of the Tool Book at [email or web address] Current Interpretive Data was last revised 2012. Blood specimen (specimen) 11/25/2017 12:17 AM HARBOR PILOT 11/25/2017 12:43 AM HARBOR PILOT Narrative [facility] - 11/25/2017 1:04 AM HARBOR PILOT us Johnathon Nuñez NP LAB BLOOD ORDERABLES Final Result [facility] [place] [address] * Glucose POC (11/25/2017 12:17 AM HARBOR PILOT) Glucose, POC 106 70 - 199 mg/dL [facility] Blood specimen (specimen) 11/25/2017 12:17 AM HARBOR PILOT 11/25/2017 12:17 AM HARBOR PILOT Narrative [facility] - 11/25/2017 12:28 AM HARBOR PILOT Sourav Callejas MD POINT OF CARE TEST ORDERABLES Final Result Performing Organization Address [facility] de Phone Number [facility] [place] [address] * Glucose POC (11/24/2017 7:37 PM HARBOR PILOT) [facility] Glucose, POC 145 70 - 199 mg/dL [facility] Blood specimen (specimen) 11/24/2017 7:37 PM HARBOR PILOT 11/24/2017 7:37 PM HARBOR PILOT Narrative [facility] - 11/24/2017 7:49 PM HARBOR PILOT Sourav Callejas MD POINT OF CARE TEST ORDERABLES Final Result Performing Organization Address [facility] de Phone Number [facility] [place] [address] * (ABNORMAL) POCT arterial blood gas, CPB (11/24/2017 5:08 PM HARBOR PILOT) [facility] pH, art POC 7.46(H) 7.35 - 7.45 [facility] pCO2, art POC 39 35 - 45 mmHg [facility] pO2, art POC 82 80 - 105 mmHg [facility] Na POC 138 135 - 145 mmol/L [facility] K POC 4.1 3.3 - 4.9 mmol/L [facility] Ionized Ca, POC 4.85 4.50 - 5.10 mg/dL [facility] Hematocrit POC 34.0(L) 38.9 - 50.3 % [facility] Glucose POC GEM 3000 169 70 - 199 mg/dL [facility] Lactate POC GEM 3000 2.2 0.7 - 2.2 mmol/L [facility] HCO3, art POC 28 20 - 30 mmol/L [facility] Total CO2, art POC 29 21 - 30 mmol/L [facility] BE, art POC 3.6 mmol/L [facility] O2 sat art POC 97 95 - 98 % [facility] Blood specimen (specimen) 11/24/2017 5:08 PM HARBOR PILOT 11/24/2017 5:08 PM HARBOR PILOT Narrative [facility] - 11/24/2017 5:32 PM HARBOR PILOT Sourav Callejas MD LAB POCT ORDERABLES - DEVICE F inal Result Performing Organization Address [facility] Co de Phone Number [facility] [place] [address] * Glucose POC (11/24/2017 3:32 PM HARBOR PILOT) Glucose, POC 85 70 - 199 mg/dL [facility] Blood specimen (specimen) 11/24/2017 3:32 PM HARBOR PILOT 11/24/2017 3:32 PM HARBOR PILOT Narrative [facility] - 11/24/2017 3:48 PM HARBOR PILOT Sourav Callejas MD POINT OF CARE TEST ORDERABLES Final Result Performing Organization Address [facility] [place] [address] * Glucose POC (11/24/2017 11:52 AM HARBOR PILOT) Glucose, POC 185 70 - 199 mg/dL [facility] Blood specimen (specimen) 11/24/2017 11:52 AM HARBOR PILOT 11/24/2017 11:52 AM HARBOR PILOT Narrative [facility] - 11/24/2017 12:09 PM HARBOR PILOT Sourav Callejas MD POINT OF CARE TEST ORDERABLES Final Result Performing Organization Address [facility] [place] [address] * XR Chest 1 Vw (11/24/2017 11:20 AM HARBOR PILOT) Anatomical Region Laterality Modality Body, Chest N/A Radiographic Tiffany ging 11/24/2017 11:2 0 AM HARBOR PILOT Narrative 11/24/2017 12:31 PM HARBOR PILOT ZACH LAURENT M.D. FINAL REPORT ACC# ??Date Time ??Exam [id number] Nov 24, 2017 05:20:00 [id number] Chest 1 view Frontal [id number] Nov 23, 2017 17:01:00 [id number] Chest 1 view Frontal EXAMINATION: ?? 1. [...] Zach Laurent M.D. Requested By: JOHNATHON NUÑEZ [facility] Dictated By: ?? ZACH LAURENT M.D. ??on Nov ??2017 ??6:29A This document has been electronically signed by: ZACH LAURENT M.D. on Nov ??2017 ??6:29A [id number] LAURENT M.D. FINAL REPORT Attending: ??MARCELINA, ??SOURAV Requesting: ??TAMIA, ??JOHNATHON Requesting Fax: ?? Attending Fax: ?? Attending ID: ??[id number] Requesting ID: ??[id number] Report To 1 ID: ??[id number] ? Report To 1 Name: ??, ?? Report To 1 FAX: ?? NextGen Order #: ?? Procedure Note Miscellaneous, Not In File - 11/24/2017 ZACH LAURENT M.D. FINAL REPORT ACC# Date Time Exam [id number] Nov 24, 2017 05:20:00 [id number] Chest 1 view Frontal [id number] Nov 23, 2017 17:01:00 [id number] Chest 1 view Frontal EXAMINATION: 1. Single [...] Zach Laurent M.D. Requested By: JOHNATHON NUÑEZ [facility] Dictated By: ZACH LAURENT M.D. on Nov 24 2017 6:29A This document has been electronically signed by: ZACH LAURENT M.D. on Nov 24 2017 6:29A [id number] LAURENT M.D. FINAL REPORT Attending: SOURAV CALLEJAS Requesting: JOHNATHON NUÑEZ Requesting Fax: Attending Fax: Attending ID: [id number] Requesting ID: [id number] Report To 1 ID: [id number] Report To 1 Name: , Report To 1 FAX: NextGen Order #: us Johnathon Nuñez [employer] INVESTIGATOR IMG XR PROCEDURES Final Re sult * (ABNORMAL) POCT arterial blood gas, CPB (11/24/2017 10:07 AM HARBOR PILOT) pH, art POC 7.39 7.35 - 7.45 [facility] pCO2, art POC 37 35 - 45 mmHg [facility] pO2, art POC 130(H) 80 - 105 mmHg [facility] Na POC 138 135 - 145 mmol/L [facility] K POC 3.2(L) 3.3 - 4.9 mmol/L [facility] Ionized Ca, POC 4.17(L) 4.50 - 5.10 mg/dL [facility] Hematocrit POC 32.0(L) 38.9 - 50.3 % [facility] Glucose POC GEM 3000 190 70 - 199 mg/dL [facility] Lactate POC GEM 3000 2.9(H) 0.7 - 2.2 mmol/L [facility] HCO3, art POC 22 20 - 30 mmol/L [facility] Total CO2, art POC 24 21 - 30 mmol/L [facility] BE, art POC -2.3 mmol/L [facility] O2 sat art POC 99(H) 95 - 98 % [facility] Blood specimen (specimen) 11/24/2017 10:07 AM [facility] 11/24/2017 10:07 AM [facility] Narrative [facility] - 11/24/2017 10:31 AM [facility] Sourav Callejas MD LAB POCT ORDERABLES - DEVICE F inal Result [facility] [place] [address] * (ABNORMAL) Basic metabolic panel (11/24/2017 7:36 AM [facility]) Sodium 135 135 - 145 mmol/L [facility] Potassium, pl 3.8 3.3 - 4.9 mmol/L [facility] Chloride 105 97 - 110 mmol/L [facility] CO2 19(L) 22 - 32 mmol/L [facility] BUN 24 8 - 25 mg/dL [facility] Glucose 259(H) 70 - 199 mg/dL [facility] [...] 2017. Creatinine 0.81 0.80 - 1.30 mg/dL [facility] Calcium 6.8(L) 8.5 - 10.3 mg/dL [facility] Anion gap 11 2 - 15 mmol/L [facility] Blood specimen (specimen) 11/24/2017 7:36 AM [facility] 11/24/2017 7:49 AM [facility] Narrative [facility] - 11/24/2017 8:09 AM [facility] us Silva Saini [employer] LAB BLOOD ORDERABL ES Final Result [facility] Department of [place] [address] * (ABNORMAL) POCT arterial blood gas, CPB (11/24/2017 7:32 AM HARBOR PILOT) pH, art POC 7.37 7.35 - 7.45 [facility] pCO2, art POC 36 35 - 45 mmHg [facility] pO2, art POC 56(L) 80 - 105 mmHg [facility] Na POC 136 135 - 145 mmol/L [facility] K POC 3.6 3.3 - 4.9 mmol/L [facility] Ionized Ca, POC 4.25(L) 4.50 - 5.10 mg/dL [facility] Hematocrit POC 33.0(L) 38.9 - 50.3 % [facility] Glucose POC GEM 3000 250(H) 70 - 199 mg/dL [facility] Lactate POC GEM 3000 5.0(C) 0.7 - 2.2 mmol/L [facility] HCO3, art POC 21 20 - 30 mmol/L [facility] Total CO2, art POC 22 21 - 30 mmol/L [facility] BE, art POC -4.0 mmol/L [facility] O2 sat art POC 88(L) 95 - 98 % [facility] Blood specimen (specimen) 11/24/2017 7:32 AM HARBOR PILOT 11/24/2017 7:32 AM HARBOR PILOT Narrative [facility] - 11/24/2017 7:56 AM HARBOR PILOT Sourav Callejas MD LAB POCT ORDERABLES - DEVICE F inal Result Performing Organization Address [facility] Co de Phone Number [facility] [place] [address] * (ABNORMAL) Glucose POC (11/24/2017 7:24 AM HARBOR PILOT) [facility] Glucose, POC 262(H) 70 - 199 mg/dL [facility] Blood specimen (specimen) 11/24/2017 7:24 AM HARBOR PILOT 11/24/2017 7:24 AM HARBOR PILOT Narrative [facility] - 11/24/2017 7:45 AM HARBOR PILOT Sourav Callejas MD POINT OF CARE TEST ORDERABLES Final Result Performing Organization Address [facility] de Phone Number [facility] [place] [address] * XR Interpretation Of Outside Films (11/24/2017 3:23 AM HARBOR PILOT) Anatomical Region Laterality Modality N/A Radiographic Tiffany ging 11/24/2017 3:23 AM HARBOR PILOT Narrative 11/24/2017 4:59 PM HARBOR PILOT RODOLFO MURPHY M.D. WALDO POLO M.D. FINAL REPORT The radiology attending physician has personally reviewed this study, and has reviewed and/or edited this written report and agrees with it. ACC# ??Date Time ??Exam [id number] Nov 23, 2017 21:23:00 [id number] [facility] Body CT Consult EXAMINATION: ??RADIOLOGY CONSULTATION [...] post stem cell transplant 2008, dictated by hmtrj-cbdfyw-cblt disease in the lungs who presents with [...] superimposed fibrosis in the setting of chronic xxcbw-igvmky-mtgn disease however this may also represent fibrosis [...] images may or may not represent the [place] source data set and thus may contain changes that may lower the accuracy of this second-opinion interpretation. Electronically signed by: Rodolfo Murphy M.D. Requested By: LORI LOPEZ ??Toño ? Dictated By: ?? WALDO POLO M.D. ??on Nov ??2017 10:04P This document has been electronically signed by: RODOLFO MURPHY M.D. on Nov 24 2017 10:57A [id number] LAGUNAS M.D. FINAL REPORT The radiology attending physician has personally reviewed this study, and has reviewed and/or edited this written report and agrees with it. Attending: ??MARCELINA, ??SOURAV Requesting: ??JOHN, ??LORI Requesting Fax: ?? Attending Fax: ?? Attending ID: ??[id number] Requesting ID: ??[id number] Report To 1 ID: ??[id number] ? Report To 1 Name: ??, ?? Report To 1 FAX: ?? NextGen Order #: ?? Procedure Note Miscellaneous, Not In File - 11/24/2017 Toño CHOWDHURY M.D. FINAL REPORT The radiology attending physician has personally reviewed this study, and has reviewed and/or edited this written report and agrees with it. ACC# Date Time Exam [id number] Nov 23, 2017 21:23:00 [id number] [facility] Body CT Consult EXAMINATION: RADIOLOGY CONSULTATION [...] post stem cell transplant 2008, dictated by lpmxp-trdthg-hozr disease in the lungs who presents with [...] superimposed fibrosis in the setting of chronic nrcfb-rwdjfd-debk disease however this may also represent fibrosis [...] images may or may not represent the [place] source data set and thus may contain changes that may lower the accuracy of this second-opinion interpretation. Electronically signed by: Rodolfo Murphy M.D. Requested By: LORI LOPEZ M.D. Dictated By: WALDO POLO M.D. on Nov 23 2017 10:04P This document has been electronically signed by: RODOLFO MURPHY M.D. on Nov 24 2017 10:57A [id number] LAGUNAS M.D. FINAL REPORT The radiology attending physician has personally reviewed this study, and has reviewed and/or edited this written report and agrees with it. Attending: SOURAV CALLEJAS Requesting: LORI LOPEZ Requesting Fax: Attending Fax: Attending ID: [id number] Requesting ID: [id number] Report To 1 ID: [id number] Report To 1 Name: , Report To 1 FAX: NextGen Order #: Lori Lopez IMG XR PROCEDURES Final Result * (ABNORMAL) Lipid panel (11/24/2017 2:21 AM HARBOR PILOT) [facility] Signature Cholesterol 55 30 - 200 [...] on 2015. HDL 10(L) >=40 mg/dL [facility] Comment: Interpretive Data Less than 40 mg/dL - low; A major risk factor for heart disease. Greater than or equal to 60 mg/dL - High; ??considered protective of heart disease. Literature Reference: See Cholesterol Current interpretive data was last revised on 2015. LDL, calculated 27 10 - 129 mg/dL [facility] Comment: Interpretive Data Optimal: ? < 100 mg/dL Near Optimal: ?100 - 129 mg/dL Borderline High: ?? 130 - 159 mg/dL High: ?160 - 189 mg/dL Very high: ? > or = 190 mg/dL Literature Reference: See Cholesterol Current interpretive data was last revised on 2015. Non-HDL Cholesterol 45 mg/dL [facility] Comment: Interpretive Data When triglycerides are >200 mg/dL, non-HDL C is a secondary target of therapy, with a goal 30 mg/dL higher than the identified LDL-C goal. Reference: ??See Cholesterol Reference. Current interpretive data was last revised 2015. Blood specimen (specimen) 11/24/2017 2:21 AM HARBOR PILOT 11/24/2017 3:01 AM HARBOR PILOT Narrative [facility] - 11/24/2017 9:00 AM HARBOR PILOT Johnathon Nuñez CRIME SCENE INVESTIGATOR LAB BLOOD ORDERABLES Final Result [facility] Department [place] [address] * (ABNORMAL) Lipase (11/24/2017 2:21 AM HARBOR PILOT) Lipase 6(L) 10 - 99 Units/L [facility] Blood specimen (specimen) 11/24/2017 2:21 AM HARBOR PILOT 11/24/2017 3:01 AM HARBOR PILOT Narrative [facility] - 11/24/2017 9:00 AM HARBOR PILOT Johnathon Nuñez CRIME SCENE INVESTIGATOR LAB BLOOD ORDERABLES Final Result Performing Organization Address City/[facility]/ZIP Co de Phone Number [facility] [place] [address] * (ABNORMAL) Differential, auto (11/24/2017 2:21 AM HARBOR PILOT) Neutrophil pct 85.3 % [facility] Comment:Confirmed by smear r eview Imm gran pct 0.9 % [facility] Lymphocyte pct 8.4 % [facility] Monocyte pct 4.5 % [facility] Eosinophil pct 0.0 % [facility] Basophil pct 0.9 % [facility] Neutrophil abs 6.88(H) 1.70 - 6.50 K/cumm [facility] Imm gran abs 0.07 0.00 - 0.10 K/cumm [facility] Lymphocyte abs 0.68(L) 0.80 - 3.30 K/cumm [facility] Monocyte abs 0.36 0.20 - 0.80 K/cumm [facility] Eosinophil abs 0.00 0.00 - 0.50 K/cumm [facility] Basophil abs 0.07 0.00 - 0.10 K/cumm [facility] Blood specimen (specimen) 11/24/2017 2:21 AM HARBOR PILOT 11/24/2017 3:01 AM HARBOR PILOT Narrative [facility] - 11/24/2017 3:38 AM HARBOR PILOT Johnathon Nuñez CRIME SCENE INVESTIGATOR LAB BLOOD ORDERABLES Final Result Performing Organization Address City/[facility]/ZIP Co de Phone Number [facility] [place] [address] * (ABNORMAL) Comprehensive metabolic panel (11/24/2017 2:21 AM HARBOR PILOT) Sodium 136 135 - 145 mmol/L [facility] Potassium, pl 4.7 3.3 - 4.9 mmol/L [facility] CO2 16(L) 22 - 32 mmol/L [facility] BUN 24 8 - 25 mg/dL [facility] Glucose 258(H) 70 - 199 mg/dL [facility] [...] 2017. Creatinine 0.99 0.80 - 1.30 mg/dL [facility] Calcium 7.4(L) 8.5 - 10.3 mg/dL [facility] Chloride 106 97 - 110 mmol/L [facility] Albumin 2.4(L) 3.5 - 5.0 g/dL [facility] AST 57(H) 10 - 50 Units/L [facility] ALT 37 7 - 55 Units/L [facility] Alk phos 76 40 - 130 Units/L [facility] Bilirubin, total 1.3(H) 0.1 - 1.2 mg/dL [facility] Protein, pl 5.6(L) 6.5 - 8.5 g/dL [facility] Anion gap 14 2 - 15 mmol/L [facility] Blood specimen (specimen) 11/24/2017 2:21 AM HARBOR PILOT 11/24/2017 3:01 AM HARBOR PILOT Narrative [facility] - 11/24/2017 3:27 AM HARBOR PILOT us Johnathon Nuñez CRIME SCENE INVESTIGATOR LAB BLOOD ORDERABLES Final Result [facility] Department [place] [address] * (ABNORMAL) Magnesium (11/24/2017 2:21 AM HARBOR PILOT) Magnesium 2.9(H) 1.4 - 2.5 mg/dL [facility] Blood specimen (specimen) 11/24/2017 2:21 AM HARBOR PILOT 11/24/2017 3:01 AM HARBOR PILOT Narrative [facility] - 11/24/2017 3:27 AM HARBOR PILOT Johnathon Nuñez CRIME SCENE INVESTIGATOR LAB BLOOD ORDERABLES Final Result Performing Organization Address [facility] [place] [address] * Phosphorus (11/24/2017 2:21 AM HARBOR PILOT) Phosphorus, pl 3.6 2.3 - 4.5 mg/dL [facility] Blood specimen (specimen) 11/24/2017 2:21 AM HARBOR PILOT 11/24/2017 3:01 AM HARBOR PILOT Narrative [facility] - 11/24/2017 3:27 AM HARBOR PILOT Johnathon Nuñez CRIME SCENE INVESTIGATOR LAB BLOOD ORDERABLES Final Result Performing Organization Address [facility] [place] [address] * (ABNORMAL) Protime-INR (11/24/2017 2:21 AM HARBOR PILOT) PT 20.0(H) 8.5 - 13.0 sec [facility] INR 1.85(H) 0.80 - 1.21 [facility] Comment: Interpretive Data Inpatient therapeutic ranges* Atrial fibrillation ?2.0-3.0 INR Venous thrombo-embolism ?2.0-3.0 INR Bioprosthetic heart valve ?* Mechanical heart valve, bileaflet or tilting disk,aortic position ? 2.0-3.0 INR All other,or bileaflet or tilting disk, in mitral position ? 2.5-3.5 INR *See the pharmacy resource directory (PHRED) for an updated copy of the Tool Book at [email or web address] Current Interpretive Data was last revised 2012. Blood specimen (specimen) 11/24/2017 2:21 AM HARBOR PILOT 11/24/2017 2:54 AM HARBOR PILOT Narrative [facility] - 11/24/2017 3:14 AM HARBOR PILOT us Johnathon Nuñez NP LAB BLOOD ORDERABLES Final Result [facility] [place] [address] * (ABNORMAL) CBC with auto differential (11/24/2017 2:21 AM HARBOR PILOT) WBC 8.06 3.80 - 9.90 K/cumm [facility] RBC 3.55(L) 4.30 - 5.80 M/cumm [facility] Hgb 12.3(L) 13.0 - 17.5 g/dL [facility] Hct 35.4(L) 38.9 - 50.3 % [facility] MCV 99.7(H) 81.3 - 96.4 fL [facility] MCH 34.6(H) 27.1 - 33.3 pg [facility] MCHC 34.7 32.3 - 35.7 g/dL [facility] RDW CV 15.9(H) 11.1 - 14.9 % [facility] RDW SD 59.1(H) 35.7 - 48.1 fL [facility] Plt 132(L) 150 - 400 K/cumm [facility] MPV 10.8 9.1 - 12.3 fL [facility] NRBC 0.0 0.0 - 0.2 % [facility] NRBC abs 0.00 0.00 - 0.01 K/cumm [facility] Blood specimen (specimen) 11/24/2017 2:21 AM HARBOR PILOT 11/24/2017 3:01 AM HARBOR PILOT Narrative [facility] - 11/24/2017 3:38 AM HARBOR PILOT us Johnathon Nuñez CRIME SCENE INVESTIGATOR LAB BLOOD ORDERABLES Final Result [facility] [place] [address] * (ABNORMAL) POCT arterial blood gas, CPB (11/24/2017 2:17 AM HARBOR PILOT) pH, art POC 7.29(L) 7.35 - 7.45 [facility] pCO2, art POC 29(L) 35 - 45 mmHg [facility] pO2, art POC 60(L) 80 - 105 mmHg [facility] Na POC 137 135 - 145 mmol/L [facility] K POC 4.2 3.3 - 4.9 mmol/L [facility] Ionized Ca, POC 4.33(L) 4.50 - 5.10 mg/dL [facility] Hematocrit POC 36.0(L) 38.9 - 50.3 % [facility] Glucose POC GEM 3000 247(H) 70 - 199 mg/dL [facility] Lactate POC GEM 3000 6.4(C) 0.7 - 2.2 mmol/L [facility] HCO3, art POC 14(L) 20 - 30 mmol/L [facility] Total CO2, art POC 15(L) 21 - 30 mmol/L [facility] BE, art POC -11.4 mmol/L [facility] O2 sat art POC 87(L) 95 - 98 % [facility] Blood specimen (specimen) 11/24/2017 2:17 AM HARBOR PILOT 11/24/2017 2:17 AM HARBOR PILOT Narrative [facility] - 11/24/2017 2:40 AM HARBOR PILOT us Sourav Callejas MD LAB POCT ORDERABLES - DEVICE F inal Result [facility] [place] [address] * (ABNORMAL) Glucose POC (11/23/2017 11:59 PM HARBOR PILOT) Glucose, POC 207(H) 70 - 199 mg/dL [facility] Blood specimen (specimen) 11/23/2017 11:59 PM HARBOR PILOT 11/23/2017 11:59 PM HARBOR PILOT [facility] 11/24/2017 12:10 AM HARBOR PILOT Sourav Callejas MD POINT OF CARE TEST ORDERABLES Final Result Performing Organization Address City/State/[facility] Co de Phone Number [facility] [place] [address] * XR Chest 1 Vw (11/23/2017 11:01 PM HARBOR PILOT) Anatomical Region Laterality Modality Body, Chest N/A Radiographic Tiffany ging 11/23/2017 11:0 1 PM HARBOR PILOT Narrative 11/24/2017 12:31 PM HARBOR PILOT ZACH LAURENT M.D. FINAL REPORT ACC# ??Date Time ??Exam [id number] Nov 24, 2017 05:20:00 [id number] Chest 1 view Frontal [id number] Nov 23, 2017 17:01:00 [id number] Chest 1 view Frontal EXAMINATION: ?? 1. [...] Zach Laurent M.D. Requested By: JOHNATHON NUÑEZ [facility] Dictated By: ?? ZACH LAURENT M.D. ??on Nov ??2017 ??6:29A This document has been electronically signed by: ZACH LAURENT M.D. on Nov ??2017 ??6:29A [id number] LAURENT M.D. FINAL REPORT Attending: ??MARCELINA, ??SOURAV Requesting: ??TAMIA, ??JOHNATHON Requesting Fax: ?? Attending Fax: ?? Attending ID: ??[id number] Requesting ID: ??[id number] Report To 1 ID: ??[id number] ? Report To 1 Name: ??, ?? Report To 1 FAX: ?? NextGen Order #: ?? Procedure Note Miscellaneous, Not In File - 11/24/2017 ZACH LAURENT M.D. FINAL REPORT ACC# Date Time Exam [id number] Nov 24, 2017 05:20:00 [id number] Chest 1 view Frontal [id number] Nov 23, 2017 17:01:00 [id number] Chest 1 view Frontal EXAMINATION: 1. Single [...] Zach Laurent M.D. Requested By: JOHNATHON NUÑEZ [facility] Dictated By: ZACH LAURENT M.D. on Nov 24 2017 6:29A This document has been electronically signed by: ZACH LAURENT M.D. on Nov 24 2017 6:29A [id number] LAURENT M.D. FINAL REPORT Attending: SOURAV CALLEJAS Requesting: JOHNATHON NUÑEZ Requesting Fax: Attending Fax: Attending ID: [id number] Requesting ID: [id number] Report To 1 ID: [id number] Report To 1 Name: , Report To 1 FAX: NextGen Order #: Johnathon Nuñez CRIME SCENE INVESTIGATOR IMG XR PROCEDURES Final Re sult * Glucose POC (11/23/2017 8:12 PM HARBOR PILOT) Glucose, POC 137 70 - 199 mg/dL [facility] Blood specimen (specimen) 11/23/2017 8:12 PM HARBOR PILOT 11/23/2017 8:12 PM HARBOR PILOT Narrative [facility] - 11/23/2017 8:34 PM HARBOR PILOT Sourav Callejas MD POINT OF CARE TEST ORDERABLES Final Result [facility] [place] [address] * Tacrolimus level, random (11/23/2017 7:32 PM HARBOR PILOT) Pathologist [facility] Tacrolimus, random <1.0 ng/mL [facility] Comment: Undetectable. ??Please verify that the correct immunosuppressant test was requested. Interpretive Data Testing performed by liquid chromatography-tandem mass spectrometry (LC- MS/MS).This test was developed using an analyte specific reagent. Its performance characteristics were determined by the [facility] in a manner consistent with CLIA requirements. ??This test has not been cleared or approved by the U.S. Food and Drug Administration. Current interpretive data was last revised on 2016. Blood specimen (specimen) 11/23/2017 7:32 PM HARBOR PILOT 11/23/2017 8:31 PM HARBOR PILOT Narrative [facility] - 11/24/2017 2:41 AM HARBOR PILOT Silva Saini CRIME SCENE INVESTIGATOR LAB BLOOD ORDERABL ES Final Result [facility] [place] [address] * (ABNORMAL) POCT arterial blood gas, CPB (11/23/2017 7:28 PM HARBOR PILOT) pH, art POC 7.23(L) 7.35 - 7.45 [facility] pCO2, art POC 29(L) 35 - 45 mmHg [facility] pO2, art POC 72(L) 80 - 105 mmHg [facility] Na POC 135 135 - 145 mmol/L [facility] K POC 3.4 3.3 - 4.9 mmol/L [facility] Ionized Ca, POC 4.21(L) 4.50 - 5.10 mg/dL [facility] Hematocrit POC 40.0 38.9 - 50.3 % [facility] Glucose POC GEM 3000 168 70 - 199 mg/dL [facility] Lactate POC GEM 3000 6.4(C) 0.7 - 2.2 mmol/L [facility] HCO3, art POC 12(L) 20 - 30 mmol/L [facility] Total CO2, art POC 13(L) 21 - 30 mmol/L [facility] BE, art POC -14.1 mmol/L [facility] O2 sat art POC 91(L) 95 - 98 % [facility] Blood specimen (specimen) 11/23/2017 7:28 PM HARBOR PILOT 11/23/2017 7:28 PM HARBOR PILOT Narrative [facility] - 11/23/2017 7:52 PM HARBOR PILOT us Sourav Callejas MD LAB POCT ORDERABLES - DEVICE F inal Result Performing Organization Address City/[facility]/[place] [address] * CMV DNA QN, PCR (11/23/2017 4:42 PM HARBOR PILOT) Pathologist [facility] CMV DNA Not Detected [facility] Comment: Interpretive Data: The quantifiable range of this assay is 137 IUnits/mL to 9,100,000 IUnits/mL (2.14 log IUnits/mL to 6.96 log IUnits/mL). Testing was performed by the [employer]/MICHEL TaqMan CMV Test ([employer] Testing performed at [facility] Current interpretive data was last revised on 17. Blood specimen (specimen) 11/23/2017 4:42 PM HARBOR PILOT 11/23/2017 9:35 PM HARBOR PILOT Narrative [facility] - 11/24/2017 7:30 PM HARBOR PILOT Johnathon Nuñez CRIME SCENE INVESTIGATOR LAB MICROBIOLOGY - GENERAL ORDERABLES Final Result Performing Organization Address [facility] [place] [address] * Beta-hydroxybutyrate (11/23/2017 4:42 PM HARBOR PILOT) Pathologist [facility] Beta-Hydroxybut yrate 0.1 0.0 - 0.5 mmol/L [facility] Blood specimen (specimen) 11/23/2017 4:42 PM HARBOR PILOT 11/23/2017 5:15 PM HARBOR PILOT Narrative [facility] - 11/23/2017 8:29 PM HARBOR PILOT Johnathon Nuñez CRIME SCENE INVESTIGATOR LAB BLOOD ORDERABLES Final Result Performing Organization Address City/[facility]/[place] [address] * (ABNORMAL) Urinalysis reflex to microscopic and culture (11/23/2017 4:42 PM HARBOR PILOT) Color, ur Yellow Yellow [facility] Clarity, ur Clear Clear [facility] Specific gravity, ur 1.029 1.003 - 1.030 [facility] pH, ur 6.0 5.0 - 8.0 [facility] Albumin, ur 1+(A) Trace [facility] Glucose, ur ql Negative Negative [facility] Ketones, ur Negative Negative [facility] Bilirubin, ur Negative Negative [facility] Blood, ur 1+(A) Negative [facility] Urobilinogen, ur <2.0 <2.0 mg/dL [facility] Nitrites, ur Negative Negative [facility] Leukocyte esterase, ur Negative Negative [facility] Urine 11/23/2017 4:42 PM HARBOR PILOT 11/23/2017 5:14 PM HARBOR PILOT Narrative [facility] - 11/23/2017 5:36 PM HARBOR PILOT Johnathon Nuñez NP LAB MICROBIOLOGY - GENERAL ORDERABLES Final Result [facility] [place] [address] * Hemoglobin A1c (11/23/2017 4:42 PM HARBOR PILOT) Pathologist [facility] Hgb A1C 5.7 4.0 - 6.0 % [facility] Estimated Average Glucose 117 mg/dL [facility] Comment: The ADA recommends reporting an estimated Average Glucose (eAG) with all Hemoglobin A1c results using the equation derived from a study of 507 normal and diabetic adults. ??Minority populations were underrepresented and children were not included. ?? (Diabetes Care 31:3871-1924, 2008). ??The eAG is not equivalent to a fasting glucose. Blood specimen (specimen) 11/23/2017 4:42 PM HARBOR PILOT 11/23/2017 5:15 PM HARBOR PILOT Narrative [facility] - 11/23/2017 5:33 PM HARBOR PILOT Johnathon Nuñez CRIME SCENE INVESTIGATOR LAB BLOOD ORDERABLES Final Result Performing Organization Address City/[facility]/ZIP Co de Phone Number [facility] [place] [address] * MRSA culture (11/23/2017 4:40 PM HARBOR PILOT) Report Final Report: Negative [facility] Nasal 11/23/2017 4:40 PM HARBOR PILOT 11/23/2017 6:35 PM HARBOR PILOT Narrative [facility] - 11/23/2017 6:35 PM HARBOR PILOT Johnathon Nuñez CRIME SCENE INVESTIGATOR LAB MICROBIOLOGY - GENERAL ORDERABLES Final Result Performing Organization Address [facility] [place] [address] * Filamentous fungus culture, blood (11/23/2017 4:40 PM HARBOR PILOT) Report Final Report: No growth of fungus [facility] Blood specimen (specimen) 11/23/2017 4:40 PM HARBOR PILOT 11/23/2017 6:33 PM HARBOR PILOT Narrative [facility] - 11/24/2017 7:30 AM HARBOR PILOT Johnathon Nuñez CRIME SCENE INVESTIGATOR LAB MICROBIOLOGY - GENERAL ORDERABLES Final Result Performing Organization Address City/[facility] Co de Phone Number [facility] [place] [address] * Blood culture (11/23/2017 4:40 PM HARBOR PILOT) Report Final Report: No growth [facility] Blood specimen (specimen) (Peripheral) 11/23/2017 4:40 PM HARBOR PILOT 11/23/2017 5:58 PM HARBOR PILOT Narrative [facility] - 11/24/2017 6:29 AM HARBOR PILOT Blood cultures are incubated for five days [...] ??This assay has been cleared by the [place] Food and Drug Administration and its performance characteristics have been verified by the [facility]. Current Interpretive Data was last revised on 2014. Johnathon Nuñez NP LAB MICROBIOLOGY - GENERAL ORDERABLES Final Result [facility] [place] [address] * Blood culture (11/23/2017 4:40 PM HARBOR PILOT) Report Final Report: No growth [facility] Blood specimen (specimen) (Peripheral) 11/23/2017 4:40 PM HARBOR PILOT 11/23/2017 6:01 PM HARBOR PILOT Narrative [facility] - 11/24/2017 6:29 AM HARBOR PILOT Blood cultures are incubated for five days [...] performance characteristics have been verified by the [facility]. Current Interpretive Data was last revised on 2014. Johnathon Nuñez NP LAB MICROBIOLOGY - GENERAL ORDERABLES Final Result Performing Organization Address City/[facility] Co de Phone Number [facility] [place] [address] * Influenza A/B PCR (11/23/2017 4:40 PM HARBOR PILOT) Report Final Report: Flu A target RNA not detected Flu B target RNA not detected RSV target RNA not detected [facility] Nasopharyngeal 11/23/2017 4: 40 PM HARBOR PILOT 11/23/2017 6:34 PM HARBOR PILOT Narrative [facility] - 11/23/2017 6:34 PM HARBOR PILOT Interpretive Data This test is performed using the [employer] Xpress Flu/RSV Assay. ??This is a multiplex, real-time reverse transcriptase PCR assay that detects influenza A, influenza B, and respiratory syncytial virus RNA. ??This assay has been cleared by the [place] Food and Drug Administration, and its performance characteristics have been verified by the [facility]. Current interpretive data was last revised on 2017. Johnathon Nuñez CRIME SCENE INVESTIGATOR LAB MICROBIOLOGY - GENERAL ORDERABLES Final Result Performing Organization Address [facility] Co de Phone Number [facility] [place] [address] * Respiratory virus detection panel (11/23/2017 4:40 PM HARBOR PILOT) Report Final Report: Respiratory Pathogen nucleic acids NOT DETECTED (NEGATIVE) [facility] Nasopharyngeal 11/23/2017 4: 40 PM HARBOR PILOT 11/23/2017 7:15 PM HARBOR PILOT Narrative [facility] - 11/23/2017 7:15 PM HARBOR PILOT The [employer] ([place]) FilmArray Respiratory Panel (RP2) assay is a [...] FilmArray RP assay is FDA cleared for CRIME SCENE INVESTIGATOR swabs. ??Additional sample types have been validated according to CLIA regulations. The performance characteristics of this assay have been determined by [facility] Infectious Disease [facility]. Current interpretive data was last revised on 2017. us Johnathon Nuñez CRIME SCENE INVESTIGATOR LAB MICROBIOLOGY - GENERAL ORDERABLES Final Result [facility] Department [place] [address] * (ABNORMAL) Manual Differential (11/23/2017 4:40 PM HARBOR PILOT) Neutrophils 81.7 % [facility] Lymphocytes 7.0 % [facility] Monos 1.7 % [facility] Metamyelocyte pct 8.7 % [facility] Myelocyte pct 0.9 % [facility] Anisocytosis 2+(A) [facility] Poikilocytosis 3+(A) [facility] Macrocytes 8-15/HPF( A) [facility] Echinocytes Present(A ) [facility] WBC counted 115 Cells [facility] RBC morphology Present(A ) [facility] Neutrophil abs 2.52 1.70 - 6.50 K/cumm [facility] Lymphs, abs 0.22(L) 0.80 - 3.30 K/cumm [facility] Monos, abs 0.05(L) 0.20 - 0.80 K/cumm [facility] Immature granulocyte, abs 0.30(H) 0.00 - 0.10 K/cumm [facility] Blood specimen (specimen) 11/23/2017 4:40 PM HARBOR PILOT 11/23/2017 5:20 PM HARBOR PILOT Narrative [facility] - 11/23/2017 5:58 PM HARBOR PILOT us Johnathon Nuñez CRIME SCENE INVESTIGATOR LAB BLOOD ORDERABLES Final Result Performing Organization Address [facility] de Phone Number [facility] [place] [address] * Triglycerides (11/23/2017 4:40 PM HARBOR PILOT) Pathologist [facility] Triglycerides 75 0 - 150 mg/dL [facility] Comment: Interpretive Data Desirable: ? < 150 mg/dL Borderline High: ? 150 - 199 mg/dL High: ?> 200 mg/dL Literature Reference: See Cholesterol Current interpretive data was last revised on 07. Blood specimen (specimen) 11/23/2017 4:40 PM HARBOR PILOT 11/23/2017 5:14 PM HARBOR PILOT [facility] 11/23/2017 5:49 PM HARBOR PILOT Johnathon Nuñez CRIME SCENE INVESTIGATOR LAB BLOOD ORDERABLES Final Result Performing Organization Address [facility]/ZIP Co de Phone Number [facility] [place] [address] * Troponin I (11/23/2017 4:40 PM HARBOR PILOT) Pathologist [facility] Troponin I <0.03 0.00 - 0.03 ng/mL [facility] Comment: Interpretive Data Serial determinations are recommended for the diagnosis of myocardial infarction (Third [place] Definition of Myocardial Infarction. ??J Am Kizzy Cardiol 2012;60:1581-98). Current interpretive data was last revised on 13. Blood specimen (specimen) 11/23/2017 4:40 PM HARBOR PILOT 11/23/2017 5:19 PM HARBOR PILOT Narrative [facility] - 11/23/2017 5:43 PM HARBOR PILOT Johnathon Nuñez CRIME SCENE INVESTIGATOR LAB BLOOD ORDERABLES Final Result Performing Organization Address [facility]/ZIP Co de Phone Number [facility] [place] [address] * Type and screen (11/23/2017 4:40 PM HARBOR PILOT) Pathologist [facility] Ursula, indirect Negative [facility] ABO Rh A Positive [facility] Blood specimen (specimen) 11/23/2017 4:40 PM HARBOR PILOT 11/23/2017 4:54 PM HARBOR PILOT Narrative [facility] - 11/23/2017 5:41 PM HARBOR PILOT Johnathon Nuñez CRIME SCENE INVESTIGATOR LAB BLOOD BANK TEST [place] [address] * (ABNORMAL) Comprehensive metabolic panel (11/23/2017 4:40 PM HARBOR PILOT) [facility] Sodium 136 135 - 145 mmol/L [facility] Potassium, pl 3.3 3.3 - 4.9 mmol/L [facility] CO2 15(L) 22 - 32 mmol/L [facility] BUN 20 8 - 25 mg/dL [facility] Glucose 153 70 - 199 mg/dL [facility] [...] 2017. Creatinine 1.12 0.80 - 1.30 mg/dL [facility] Calcium 7.3(L) 8.5 - 10.3 mg/dL [facility] Chloride 104 97 - 110 mmol/L [facility] Albumin 2.6(L) 3.5 - 5.0 g/dL [facility] AST 31 10 - 50 Units/L [facility] ALT 21 7 - 55 Units/L [facility] Alk phos 102 40 - 130 Units/L [facility] Bilirubin, total 1.7(H) 0.1 - 1.2 mg/dL [facility] Protein, pl 5.5(L) 6.5 - 8.5 g/dL [facility] Anion gap 17(H) 2 - 15 mmol/L [facility] Blood specimen (specimen) 11/23/2017 4:40 PM HARBOR PILOT 11/23/2017 4:58 PM HARBOR PILOT Narrative [facility] - 11/23/2017 5:33 PM HARBOR PILOT us Johnathon Nuñez CRIME SCENE INVESTIGATOR LAB BLOOD ORDERABLES Final Result [facility] Department [place] [address] * Magnesium (11/23/2017 4:40 PM HARBOR PILOT) Magnesium 1.6 1.4 - 2.5 mg/dL [facility] Blood specimen (specimen) 11/23/2017 4:40 PM HARBOR PILOT 11/23/2017 4:58 PM HARBOR PILOT Narrative [facility] - 11/23/2017 5:33 PM HARBOR PILOT Johnathon Nuñez CRIME SCENE INVESTIGATOR LAB BLOOD ORDERABLES Final Result Performing Organization Address [facility] Co de Phone Number [facility] [place] [address] * Phosphorus (11/23/2017 4:40 PM HARBOR PILOT) Phosphorus, pl 3.4 2.3 - 4.5 mg/dL [facility] Blood specimen (specimen) 11/23/2017 4:40 PM HARBOR PILOT 11/23/2017 4:58 PM HARBOR PILOT Narrative [facility] - 11/23/2017 5:33 PM HARBOR PILOT Johnathon Nuñez CRIME SCENE INVESTIGATOR LAB BLOOD ORDERABLES Final Result Performing Organization Address [facility] de Phone Number [facility] [place] [address] * (ABNORMAL) Lipase (11/23/2017 4:40 PM HARBOR PILOT) Pathologist [facility] Lipase 8(L) 10 - 99 Units/L [facility] Blood specimen (specimen) 11/23/2017 4:40 PM HARBOR PILOT 11/23/2017 4:58 PM HARBOR PILOT Narrative [facility] - 11/23/2017 5:33 PM HARBOR PILOT Johnathon Nuñez CRIME SCENE INVESTIGATOR LAB BLOOD ORDERABLES Final Result Performing Organization Address [facility] [place] [address] * Lactate dehydrogenase (LD) (11/23/2017 4:40 PM HARBOR PILOT) Lactate dehydrogenase (LDH) 131 100 - 250 Units/L [facility] Blood specimen (specimen) 11/23/2017 4:40 PM HARBOR PILOT 11/23/2017 4:58 PM HARBOR PILOT Narrative [facility] - 11/23/2017 5:33 PM HARBOR PILOT Johnathon Nuñez CRIME SCENE INVESTIGATOR LAB BLOOD ORDERABLES Final Result Performing Organization Address [facility] de Phone Number [facility] [place] [address] * Amylase (11/23/2017 4:40 PM HARBOR PILOT) Amylase 35 30 - 100 Units/L [facility] Blood specimen (specimen) 11/23/2017 4:40 PM HARBOR PILOT 11/23/2017 4:58 PM HARBOR PILOT Narrative [facility] - 11/23/2017 5:33 PM HARBOR PILOT Johnathon Nuñez CRIME SCENE INVESTIGATOR LAB BLOOD ORDERABLES Final Result Performing Organization Address [facility] de Phone Number [facility] [place] [address] * (ABNORMAL) Protime-INR (11/23/2017 4:40 PM HARBOR PILOT) PT 16.4(H) 8.5 - 13.0 sec [facility] INR 1.52(H) 0.80 - 1.21 [facility] Comment: Interpretive Data Inpatient therapeutic ranges* Atrial fibrillation ?2.0-3.0 INR Venous thrombo-embolism ?2.0-3.0 INR Bioprosthetic heart valve ?* Mechanical heart valve, bileaflet or tilting disk,aortic position ? 2.0-3.0 INR All other,or bileaflet or tilting disk, in mitral position ? 2.5-3.5 INR *See the pharmacy resource directory (PHRED) for an updated copy of the Tool Book at [email or web address] Current Interpretive Data was last revised 2012. Blood specimen (specimen) 11/23/2017 4:40 PM HARBOR PILOT 11/23/2017 5:14 PM HARBOR PILOT [facility] 11/23/2017 5:27 PM HARBOR PILOT us Johnathon Nuñez CRIME SCENE INVESTIGATOR LAB BLOOD ORDERABLES Final Result [facility] [place] [address] * (ABNORMAL) CBC with auto differential (11/23/2017 4:40 PM HARBOR PILOT) WBC 3.08(L) 3.80 - 9.90 K/cumm [facility] RBC 3.67(L) 4.30 - 5.80 M/cumm [facility] Hgb 12.7(L) 13.0 - 17.5 g/dL [facility] Hct 37.4(L) 38.9 - 50.3 % [facility] MCV 101.9(H) 81.3 - 96.4 fL [facility] MCH 34.6(H) 27.1 - 33.3 pg [facility] MCHC 34.0 32.3 - 35.7 g/dL [facility] RDW CV 15.9(H) 11.1 - 14.9 % [facility] RDW SD 60.0(H) 35.7 - 48.1 fL [facility] Plt 159 150 - 400 K/cumm [facility] MPV 10.7 9.1 - 12.3 fL [facility] NRBC 0.0 0.0 - 0.2 % [facility] NRBC abs 0.00 0.00 - 0.01 K/cumm [facility] Blood specimen (specimen) 11/23/2017 4:40 PM HARBOR PILOT 11/23/2017 5:15 PM HARBOR PILOT Narrative [facility] - 11/23/2017 5:57 PM HARBOR PILOT us Johnathon Nuñez CRIME SCENE INVESTIGATOR LAB BLOOD ORDERABLES Final Result Performing Organization Address City/[facility]/ZIP Co de Phone Number [facility] [place] [address] * (ABNORMAL) POCT arterial blood gas, CPB (11/23/2017 4:15 PM HARBOR PILOT) [facility] pH, art POC 7.27(L) 7.35 - 7.45 [facility] pCO2, art POC 31(L) 35 - 45 mmHg [facility] pO2, art POC 66(L) 80 - 105 mmHg [facility] Na POC 136 135 - 145 mmol/L [facility] K POC 3.4 3.3 - 4.9 mmol/L [facility] Ionized Ca, POC 4.21(L) 4.50 - 5.10 mg/dL [facility] Hematocrit POC 40.0 38.9 - 50.3 % [facility] Glucose POC GEM 3000 157 70 - 199 mg/dL [facility] Lactate POC GEM 3000 5.9(C) 0.7 - 2.2 mmol/L [facility] HCO3, art POC 14(L) 20 - 30 mmol/L [facility] Total CO2, art POC 15(L) 21 - 30 mmol/L [facility] BE, art POC -11.5 mmol/L [facility] O2 sat art POC 89(L) 95 - 98 % [facility] Blood specimen (specimen) 11/23/2017 4:15 PM HARBOR PILOT 11/23/2017 4:15 PM HARBOR PILOT Narrative [facility] - 11/25/2017 2:38 PM HARBOR PILOT us Sourav Callejas MD LAB POCT ORDERABLES - DEVICE F inal Result Performing Organization Address [facility]/ZIP Co de Phone Number [facility] [place] [address] * TRANSTHORACIC ECHO (TTE) COMPLETE W DOPPLER/CF [...] documented as of this encounter Care Teams Microfiche Duplicator Relationship Specialty Start Date End Date Kirt Lindsay DO PCP - General 05/02/17 11/22/20 documented as of this encounter
--- OUTSIDE RECORDS SUMMARY | 2024-11-22 13:11 | XMS_ITS | Encounter Summary ---
Author Organization [facility] Healthcare Address [address] [place] [address] Care Team Providers Care Marketing Automation Specialist Name Role Phone Unavailable Primary Care Provider Unavailabl e Encounter Details Date Type Department Care Team (Late st Contact Info) Description 02/04/2017 Orders Only [facility] [phone] Josué Del Valle MD PhD [address] [facility] [employer], [address] [place], [place] [id number] Social History Tobacco Use Types Packs/Day Years Used Date Smoking Tobacco: Never Assessed Sex and Gender Information Value Date Recorded Sex Assigned at Not on file Legal Sex Male 10:48 AM [employer]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 Gender Identity Not on file Sexual Orientation Not on file documented as of this encounter Plan of Treatment Not on file documented as of this encounter Procedures Procedure Name Priority Date/Time Associated Diagnosis Comments PSA DIAGNOSTIC Routine Gen Lab 02/04/2017 8:20 AM CDT documented in this encounter Results * PSA diagnostic (02/04/2017 8:20 AM CDT) PSA-Total 0.7 0.1 - 4.0 ng/mL [facility] Blood specimen (specimen) 02/04/2017 8:20 AM CDT 02/04/2017 9:56 AM CDT us Josué Del Valle MD PhD LAB BLOOD ORDERABLES Fin al Result Performing Organization Address City/State/[facility] Co de Phone Number [facility] [place] [address] documented in this encounter Visit Diagnoses Not on filedocumented in this encounter Additional Health Concerns Infection Onset Date Last Indicated Resolved Time VRE Comment:Backloaded September 06, 2011 11/26/2010 11/26/201006/18 5:00 AM CDT documented as of this encounter
--- OUTSIDE RECORDS SUMMARY | 2024-11-22 13:11 | XMS_ITS | Encounter Summary ---
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) Social History Tobacco Use Types Packs/Day Years Used Date Smoking Tobacco: Never Assessed Sex and Gender Information Value Date Recorded Sex Assigned at Not on file Legal Sex Male 10:48 AM COMPLIANCE REVIEW OFFICER Gender Identity Not on file Sexual [...] (CMV) PCR, CDR Routine 11/07/2015 1:00 PM COMPLIANCE REVIEW OFFICER SERUM URIC ACID Routine 11/07/2015 1:00 PM COMPLIANCE REVIEW OFFICER SERUM MAGNESIUM Routine 11/07/2015 1:00 PM COMPLIANCE REVIEW OFFICER SERUM LACTATE DEHYDROGENASE (LDH) Routine 11/07/2015 1:00 PM COMPLIANCE REVIEW OFFICER PLASMA COMPREHENSIVE METABOLIC PANEL Routine 11/07/2015 1:00 PM COMPLIANCE REVIEW OFFICER BLOOD TACROLIMUS (FK-506) DRUG LEVEL Routine 11/07/2015 1:00 PM COMPLIANCE REVIEW OFFICER BLOOD MORPHOLOGY SCREEN Routine 11/07/20 15 12:56 PM COMPLIANCE REVIEW OFFICER BLOOD CELL COUNT Routine 11/07/2015 12:5 6 PM COMPLIANCE REVIEW OFFICER ALL MICROBIOLOGY REPORT SECTION Routine 11/07/2015 12:00 AM COMPLIANCE REVIEW OFFICER CYTOMEGALOVIRUS (CMV) PCR, CDR Routine 08/23/2015 2:11 [...] * Cytomegalovirus (CMV) PCR (11/07/2015 1:00 PM COMPLIANCE REVIEW OFFICER) Blood specimen (specimen) (Unknown) 11/07/2015 1:00 PM COMPLIANCE REVIEW OFFICER 11/07/2015 2:14 PM COMPLIANCE REVIEW OFFICER Impressions HISTORICAL RESULTS - 11/08/2015 7:22 AM COMPLIANCE REVIEW OFFICER This assay employs the FDA-cleared Qiagen/Trustev real-time CMV PCR test kit. The PCR [...] Narrative HISTORICAL RESULTS - 11/08/2015 7:22 AM COMPLIANCE REVIEW OFFICER CMV DNA NOT DETECTED (NEGATIVE). ??This assay can reliably detect CMV DNA as low as 100 IU/mL. Historical Provider MD LAB MICROBIOLOGY - GENERA L ORDERABLES Final Result Performing Organization Address [facility] Co de Phone Number HISTORICAL RESULTS * Blood tacrolimus (FK-506) drug level (11/07/2015 1:00 PM COMPLIANCE REVIEW OFFICER) Tacrolimus <1.0 ng/ml HISTORICA L RESULTS Comment: Undetectable. ??Please verify that the correct immunosuppressant test was requested. Interpretive Data This test was developed using an analyte specific reagent. ?? Its performance characteristics were determined by the [facility] in a manner consistent with CLIA requirements. ??This test has not been cleared or approved by the U.S. Food and Drug Administration. Current interpretive data was last revised on 2012. Blood specimen (specimen) 11/07/2015 1:00 PM COMPLIANCE REVIEW OFFICER Josué Del Valle MD PhD LAB BLOOD ORDERABLES Fin al Result Performing Organization Address [facility] Co de Phone Number HISTORICAL RESULTS * Plasma comprehensive metabolic panel (11/07/2015 1:00 PM COMPLIANCE REVIEW OFFICER) Sodium 141 135 - 145 mmol/L HISTORICAL [...] Units/L HISTORICAL RESULTS Plasma 11/07/2015 1:00 PM COMPLIANCE REVIEW OFFICER Josué Del Valle MD PhD LAB BLOOD ORDERABLES Fin al Result Performing Organization Address [facility] de Phone Number HISTORICAL RESULTS * (ABNORMAL) Serum lactate dehydrogenase (LDH) (11/07/2015 1:00 PM COMPLIANCE REVIEW OFFICER) Lactate dehydrogenase (LDH) 293(H) 100 - 250 Units/L HISTORICAL RESULTS Serum 11/07/2015 1:00 PM COMPLIANCE REVIEW OFFICER Josué Del Valle MD PhD LAB BLOOD ORDERABLES Fin al Result Performing Organization Address [facility] Co de Phone Number HISTORICAL RESULTS * Serum uric acid (11/07/2015 1:00 PM COMPLIANCE REVIEW OFFICER) Uric acid 4.4 3.0 - 8.0 mg/dl HISTORICAL RESULTS Serum 11/07/2015 1:00 PM COMPLIANCE REVIEW OFFICER Josué Del Valle MD PhD LAB BLOOD ORDERABLES Fin al Result Performing Organization Address [facility] Co de Phone Number HISTORICAL RESULTS * Serum magnesium (11/07/2015 1:00 PM COMPLIANCE REVIEW OFFICER) Magnesium 2.0 1.4 - 2.5 mg/dl HISTORICAL RESULTS Serum 11/07/2015 1:00 PM COMPLIANCE REVIEW OFFICER Josué Del Valle MD PhD LAB BLOOD ORDERABLES Fin al Result Performing Organization Address [facility] Co de Phone Number HISTORICAL RESULTS * Blood morphology screen (11/07/2015 12:56 PM COMPLIANCE REVIEW OFFICER) Morphology scrn Original results obtained required verification by peripheral smear HISTORICAL RESULTS Blood specimen (specimen) 11/07/2015 12:56 PM COMPLIANCE REVIEW OFFICER Josué Del Valle MD PhD LAB BLOOD ORDERABLES Fin al Result Performing Organization Address [facility] de Phone Number HISTORICAL RESULTS * (ABNORMAL) Blood cell count [CBC] panel, 7 CAM (11/07/2015 12:56 PM COMPLIANCE REVIEW OFFICER) WBC 16.4(H) 3.8 - 9.8 K/cumm HISTORICAL [...] RESULTS Blood specimen (specimen) 11/07/2015 12:56 PM COMPLIANCE REVIEW OFFICER us Josué Del Valle MD PhD LAB BLOOD ORDERABLES Fin al Result HISTORICAL RESULTS * All Microbiology Report Section (11/07/2015 12:00 AM COMPLIANCE REVIEW OFFICER) 11/07/2015 Narrative HISTORICAL RESULTS - 11/08/2015 10:26 AM COMPLIANCE REVIEW OFFICER ? [facility] ?[facility] [address] ?[place], [place] [address] ? Patient Name: ??BRI JONES ? Med Rec Number: [id number] ? Fin Number: ?[id number] ? Date: ?1965 ? Sex/Age: ? Male 50 years ? Admit Date: ?02/01/2015 ? Discharge Date: 11/17/2015 ? Doctor: ?Josué Del Valle ? Facility: ?[facility] ([facility]) ? Location: ?[facility] ?* Abnormal ??A Alert [...] ? ORDER COMMENTS ? (1)Testing performed by: [facility], [place], ? [place] [address] ?* * * ??Interpretive Results ??* * * ? (1)This assay employs the FDA-cleared Qiagen/Trustev real-time CMV ? PCR test kit. The [...] and ? its performance characteristics determined by [place] ? [facility]. It has not been cleared [...] AM CDT This assay employs the FDA-cleared Qiagen/Trustev real-time CMV PCR test kit. The PCR [...] metabolic panel (08/23/2015 2:11 PM CDT) Pathologist [facility] A. gap 8 0 - 16 mmol/L [...] ORDERABLES Fin al Result Performing Organization Address [facility] de Phone Number HISTORICAL RESULTS * (ABNORMAL) Serum lactate dehydrogenase (LDH) (08/23/2015 2:11 PM CDT) Lactate dehydrogenase (LDH) 253(H) 100 - 250 Units/L HISTORICAL RESULTS Serum 08/23/2015 2:11 PM CDT Josué Del Valle MD PhD LAB BLOOD ORDERABLES Fin al Result Performing Organization Address [facility] de Phone Number HISTORICAL RESULTS * Serum uric acid (08/23/2015 2:11 PM CDT) Uric acid 5.8 3.0 - 8.0 mg/dl HISTORICAL RESULTS Serum 08/23/2015 2:11 PM CDT Josué Del Valle MD PhD LAB BLOOD ORDERABLES Fin al Result Performing Organization Address [facility] de Phone Number HISTORICAL RESULTS * Serum magnesium (08/23/2015 2:11 PM CDT) Magnesium 1.7 1.4 - 2.5 mg/dl HISTORICAL RESULTS Serum 08/23/2015 2:11 PM CDT Josué Del Valle MD PhD LAB BLOOD ORDERABLES Fin al Result Performing Organization Address [facility] Co de Phone Number HISTORICAL RESULTS [...] Its performance characteristics were determined by the [facility] in a manner consistent with CLIA [...] Narrative HISTORICAL RESULTS - 11/08/2015 10:26 AM COMPLIANCE REVIEW OFFICER ? [facility] ?[facility] [address] ?[place], [place] [address] ? Patient Name: ??BRI JONES ? Med Rec Number: [id number] ? Fin Number: ?[id number] ? Date: ?1965 ? Sex/Age: ? Male 50 years ? Admit Date: ?02/01/2015 ? Discharge Date: 11/17/2015 ? Doctor: ?Josué Del Valle ? Facility: ?[facility] ([facility]) ? Location: ?[facility] ?* Abnormal ??A Alert [...] ? ORDER COMMENTS ? (1)Testing performed by: [facility], ? [place] [address] ?* * * ??Interpretive Results ??* * * ? (1)This assay employs the FDA-cleared Qiagen/Trustev real-time CMV ? PCR test kit. The [...] and ? its performance characteristics determined by [place] ? [facility]. It has not been cleared [...] ??Its performance characteristics were determined by the [facility] in a manner consistent with CLIA [...] ??Its performance characteristics were determined by the [facility] in a manner consistent with CLIA [...] ORDERABLES Fin al Result Performing Organization Address 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
--- OUTSIDE RECORDS SUMMARY | 2024-11-22 13:11 | XMS_ITS | Encounter Summary ---
Author Organization [facility] Facility Care Team Providers Care Trolley Operator Name Role Phone Unavailable Primary Care Provider Unavailabl e Encounter Details Date Type Department Care Team (Late st Contact Info) Description 09/19/2016 3:09 PM CDT - 09/19/2016 11:59 PM CDT Hospital Encounter [facility] Christopher Armenta MD PhD [address] DIV BONE MARROW TRANSPLANT, [address] [place] [address] Pain in right knee; Pain in left shoulder Social History Tobacco Use Types Packs/Day Years Used Date Smoking Tobacco: Never Assessed Sex and Gender Information Value Date Recorded Sex Assigned at Not on file 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 FINAL REPORT ACC# ??Date Time ??Exam [id number] Sep 19, 2016 15:37:00 [id number] Shoulder minimum 2 views L EXAMINATION: ?Left [...] by: ILDA MARTI M.D. on Sep?2015 ??3:41P [id number] Procedure Note Provider, MD Shmuel - 03/26/2017 ILDA MARTI M.D. FINAL REPORT ACC# Date Time Exam [id number] Sep 19, 2016 15:37:00 [id number] Shoulder minimum 2 views L EXAMINATION: Left [...] MARTI M.D. on Sep 19 2016 3:41P [id number] Historical Provider IMG XR PROCEDURES Final R esult * KNEE RADIOGRAPHY, FRONTAL (AP), LATERAL, OBLIQUE (09/19/2016 3:37 PM CDT) Anatomical Region Laterality Modality N/A Radiographic Tiffany ging 09/19/2016 3:37 PM CDT Narrative 09/19/2016 3:43 PM CDT ILDA MARTI M.D. FINAL REPORT ACC# ??Date Time ??Exam [id number] Sep 19, 2016 15:37:00 [id number] Knee 3 views R EXAMINATION: ?Right knee [...] ILDA MARTI M.D. on Sep ??2015 ??3:43P [id number] Procedure Note Provider, MD Shmuel - 03/26/2017 ILDA MARTI M.D. FINAL REPORT ACC# Date Time Exam [id number] Sep 19, 2016 15:37:00 [id number] Knee 3 views R EXAMINATION: Right knee 3 views HISTORY: Right knee pain FINDINGS: Three views of the right knee are performed without comparison. There is normal alignment of the right knee. The joint spaces are normal. No fracture. No knee joint effusion. IMPRESSION: Normal right knee radiographs. Requested By: HCRISTOPHER MIR M.D. Dictated By: ILDA MARTI M.D. on Sep 19 2016 3:43P This document has been electronically signed by: ILDA MARTI M.D. on Sep 19 2016 3:43P [id number] Historical Provider IMWilder XR PROCEDURES Final R esult documented in this encounter Visit Diagnoses Diagnosis Pain in right knee Pain in left shoulder documented in this encounter Additional Health Concerns Infection Onset Date Last Indicated Resolved Time VRE Comment:Backloaded September 06, 2011 11/26/2010 11/26/201006/18 5:00 AM CDT documented as of this encounter
--- OUTSIDE RECORDS SUMMARY | 2024-11-22 13:11 | XMS_ITS | Encounter Summary ---
Author Organization [facility] Healthcare Address [address] [place] [address] Care Team Providers Care Ribbon Cleaner Name Role Phone Kirt Lindsay DO Primary Care Provider [phone] Encounter Details Date Type Department Care Team (Latest Contact Info) Description 05/30/2017 4:55 PM CDT - 06/25/2017 11:59 PM T Hospital Encounter [facility] [phone] Eneida Gibson MD [address] [place] [address] Discharge Disposition: Discharge to home or self [...] antigen immunoassay (06/25/2017 1:06 PM CDT) Pathologist [facility] HIV 1/2 ab + p24 ag Nonreactive Nonreactive [facility] Comment:Negative for HIV-1 a ntigen and HIV-1/ HIV-2 antibodies. No laboratory evidence of HIV infection. If acute HIV infection is suspected, consider testing for HIV-1 RNA. Blood specimen (specimen) 06/25/2017 1:06 PM CDT 06/25/2017 1:36 PM CDT Josué Del Valle MD PhD LAB MICROBIOLOGY - [facility] AL ORDERABLES Final Result [facility] Department [place] [address] * Hepatitis panel, acute (06/25/2017 1:05 PM CDT) Pathologist [facility] Hep A IgM Nonreactive Nonreactive [facility] Comment: Interpretive Data If test is reported as GRAYZONE, new sample should be drawn in two weeks for testing. Current interpretive data was last revised on 2016. Hep B core IgM Nonreactive Nonreactive [facility] Comment: Interpretive Data If test is reported as GRAYZONE, new sample should be drawn for testing. Current interpretive data was last revised on 2016. Hep C Ab Nonreactive Nonreactive [facility] Comment: Interpretive Data Positive and greyzone results should be confirmed by a molecular method. If positive or greyzone, a second separately collected sample should be submitted for Hepatitis C Virus RNA. Detection and Quantitation by Real-Time Reverse Supervisor [employer] [place]-PCR.Current Interpretive data was last revised on 2017. HepBsAg Nonreactive Nonreactive [facility] Blood specimen (specimen) 06/25/2017 1:05 PM CDT 06/25/2017 1:32 PM CDT Josué Del Valle MD PhD LAB MICROBIOLOGY - GENER AL ORDERABLES Edited Result - Final Performing Organization Address [facility] de Phone Number [facility] [place] [address] * Hepatitis B core antibody, total (06/25/2017 1:05 PM CDT) Hep B core IgG/IgM Nonreactive Nonreactive [facility] Blood specimen (specimen) 06/25/2017 1:05 PM CDT 06/25/2017 1:35 PM CDT Josué Del Valle MD PhD LAB MICROBIOLOGY - GENER AL ORDERABLES Edited Result - Final Performing Organization Address [facility] de Phone Number [facility] [place] [address] * Tacrolimus level, random (06/25/2017 1:05 PM CDT) Tacrolimus, random 2.6 ng/mL [facility] Comment: Interpretive Data Testing performed by liquid chromatography-tandem mass spectrometry (LC- MS/MS).This test was developed using an analyte specific reagent. Its performance characteristics were determined by the [facility] in a manner consistent with CLIA requirements. ??This test has not been cleared or approved by the U.S. Food and Drug Administration. Current interpretive data was last revised on 2016. Blood specimen (specimen) 06/25/2017 1:05 PM CDT 06/25/2017 1:32 PM CDT us Josué Del Valle MD PhD LAB BLOOD ORDERABLES Fin al Result [facility] Department [place] [address] * (ABNORMAL) CBC with auto differential (06/25/2017 1:02 PM CDT) WBC 9.2 3.8 - 9.8 K/cumm [facility] RBC 4.20(L) 4.50 - 5.70 M/cumm [facility] Hgb 14.6 13.8 - 17.2 g/dL [facility] Hct 42.2 40.7 - 50.3 % [facility] Mean Cellular Volume - CAM 100.4(H) 80.0 - 97.6 fL [facility] Mean Cellular Hemoglobin - CAM 34.7(H) 26.7 - 33.7 pg [facility] Mean Cellular Hemoglobin Concentration - CAM 34.5 32.7 - 35.5 g/dL [facility] Rdw 13.2 11.8 - 14.6 % [facility] Plt 251 140 - 440 K/cumm [facility] Mean Platelet Volume - CAM 7.3 6.8 - 10.4 fL [facility] Neutrophil pct 49.6 38.7 - 74.5 % [facility] Lymphocyte pct 35.7 20.0 - 54.3 % [facility] Monos 8.2 4.3 - 13.5 % [facility] Eosinophil pct 5.3 0.0 - 6.0 % [facility] Basophil pct 1.2 0.0 - 3.0 % [facility] Neutrophil abs 4.6 1.8 - 6.6 K/cumm [facility] Lymphocyte abs 3.3 1.2 - 3.3 K/cumm [facility] Monocyte abs 0.8 0.2 - 1.2 K/cumm [facility] Eosinophils, abs 0.5 0.0 - 0.5 K/cumm [facility] Basophil abs 0.1 0.0 - 0.2 K/cumm [facility] NRBC 0.0 0.0 - 0.2 % [facility] NRBC abs 0.00 0.00 - 0.01 K/cumm [facility] Blood specimen (specimen) 06/25/2017 1:02 PM CDT 06/25/2017 1:07 PM CDT Result [facility] Josué Del Valle MD PhD LAB BLOOD ORDERABLES Fin al Result Performing Organization Address [facility] de Phone Number [facility] [place] [address] * (ABNORMAL) Vitamin D 25 hydroxy (05/31/2017 10:12 AM CDT) Vitamin D 25-OH 20.0(L) 30.0 - 100.0 ng/mL [facility] Blood specimen (specimen) 05/31/2017 10:12 AM CDT 05/31/2017 10:34 AM CDT Result [facility] Eneida Gibson MD LAB BLOOD ORDERABLES Final Resul t Performing Organization Address [facility] de Phone Number [facility] [place] [address] * Hemoglobin A1c (05/31/2017 10:12 AM CDT) Pathologist [facility] Hgb A1C 5.9 4.0 - 6.0 % [facility] Estimated Average Glucose 123 mg/dL [facility] Comment: The ADA recommends reporting an estimated Average Glucose (eAG) with all Hemoglobin A1c results using the equation derived from a study of 507 normal and diabetic adults. ??Minority populations were underrepresented and children were not included. ?? (Diabetes Care 31:4156-3298, 2008). ??The eAG is not equivalent to a fasting glucose. Blood specimen (specimen) 05/31/2017 10:12 AM CDT 05/31/2017 10:34 AM CDT Result [facility] Eneida Gibson MD LAB BLOOD ORDERABLES Edited Resu lt - Final Performing Organization Address [facility] de Phone Number [facility] Department [place] [address] * DISCHARGE LABORATORY CUMULATIVE REPORT (05/30/2017 12:00 [...] documented as of this encounter Care Teams Ribbon Cleaner Relationship Specialty Start Date End Date Kirt Lindsay DO PCP - General 05/02/17 11/22/20 documented as of this encounter
--- OUTSIDE RECORDS SUMMARY | 2024-11-22 13:11 | XMS_ITS | Encounter Summary ---
Author Organization [facility] Address [address] [facility] [address] [place] [address] Phone Care Team Providers Care Manager Enterprise Content Management Name Role Phone Kirt Lindsay DO Primary Care Provider [phone] Josué Del Valle MD PhD Unavailable [phone] Halie Khan MD Primary Care Provider [phone] Kirt Lindsay DO Primary Care Provider [phone]- [phone] Tay Charlton MD Unavailable [phone] Halie Khan MD Unavailable [phone] StarksAnt goldman MD Unavailable [phone]- [phone] Dillon Calreed Dorado DO Unavailable [phone] Halie Khan MD Unavailable [phone] Wilfred Kinsey MD Unavailable Encounter Details Date Type Department Care Team (Latest Contact Info) Description 11/27/2017 Orders Only [facility] CONVERSION Scanning, Provider Social History Tobacco Use Types Packs/Day Years Used Date Smoking Tobacco: Never Assessed Sex and Gender Information Value Date Recorded Sex Assigned at Not on file Legal Sex Male 10:48 AM PLASTICS WORKER Gender Identity Not on file Sexual Orientation Not on file documented as of this encounter Plan of Treatment Not on file documented as of this encounter Procedures Procedure Name Priority Date/Time Associated Diagnosis Comments VASCULAR LABORATORY REPORT 11/27/2017 4:04 PM PLASTICS WORKER VASCULAR LABORATORY REPORT 11/27/2017 4:04 PM PLASTICS WORKER documented in this encounter Results * VASCULAR LABORATORY REPORT (11/27/2017 4:04 PM PLASTICS WORKER) Anatomical Region Laterality Modality Ultrasound us Provider Scanning CV VASCULAR PROCEDURES Final R esult * VASCULAR LABORATORY REPORT (11/27/2017 4:04 PM PLASTICS WORKER) Anatomical Region Laterality Modality Ultrasound us Provider [...] as of this encounter Care Teams Manager Enterprise Content Management Relationship Specialty Start Date End Date Kirt Lindsay DO PCP - General 05/02/17 11/22/20 Halie Khan MD [address] [address] PCP - General Critical Care Med 11/23/20 02/01/21 Kirt Lindsay DO PCP - General Internal Medicine 02/02/21 Josué Del Valle MD PhD Medical Oncologist/Veterinarian Small Animal Medical Oncology 08/26/19 Tay Charlton MD [address] [address] Consulting Physician Gastroenterology 12/03/21 06/11/23 Halie Khan MD [address] [address] Consulting Physician Pulmonary Disease 12/12/21 3 Ant Starks MD [address] [facility] [address] [place] [address] Consulting Physician Transplant Hepatology 01/12/22 Cal Carranza DO [address] [facility] [address] [place] [address] Machine Gunner Internal Medicine 06/12/23 Halie Khan MD [address] [facility] [address] [place] [address] Nutrition Assistant Critical Care Med 06/12/23 Wilfred Kinsey MD [address] [address] Consulting Physician Gastroenterology 03/02/24 documented as of this encounter
--- OUTSIDE RECORDS SUMMARY | 2024-11-22 13:11 | XMS_ITS | Encounter Summary ---
Author Organization [facility] Facility Care Team Providers Care Credentialing Analyst Name Role Phone Unavailable Primary Care Provider Unavailabl e Encounter Details Date Type Department Care Team (Latest Contact Info) Description 05/25/2013 - 05/25/2013 11:59 PM CDT Hospital Encounter [facility] Christopher Armenta MD PhD [address] DIV BONE MARROW TRANSPLANT, [address] [place] [address] Shortness of breath; Chronic pancreatitis (CMS/HCC) (HCC); Acute myeloid leukemia (HCC) Social History Tobacco Use Types Packs/Day Years Used Date Smoking Tobacco: Never Assessed Sex and Gender Information Value Date Recorded Sex Assigned at Not on file Legal 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 ACC# ??Date Time ??Exam [id number] May 25, 2013 13:22:[address] Chest with contrast EXAMINATION: ?CT chest [...] agrees with it. ACC# Date Time Exam [id number] May 25, 2013 13:22:[address] Chest with contrast EXAMINATION: CT chest [...]
--- OUTSIDE RECORDS SUMMARY | 2024-11-22 13:11 | XMS_ITS | Encounter Summary ---
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 Gender Identity Not on file Sexual Orientation [...] (LDH) 176 100 - 250 Units/L [facility] Blood specimen (specimen) 02/04/2017 8:20 AM CDT 02/04/2017 8:38 AM CDT us Josué Del Valle MD PhD LAB BLOOD ORDERABLES Fin al Result Performing Organization Address City/State/[facility] Co de Phone Number [facility] Department [place] [address] documented in this encounter Visit Diagnoses Not on filedocumented in this encounter Additional Health Concerns Infection Onset Date Last Indicated Resolved Time VRE Comment:Backloaded September 06, 2011 11/26/2010 11/26/201006/18 5:00 AM CDT documented as of this encounter
--- OUTSIDE RECORDS SUMMARY | 2024-11-22 13:11 | XMS_ITS | Encounter Summary ---
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 Gender Identity Not on file Sexual [...] BJ CO2 32 22 - 32 mmol/L [facility] BUN 15 8 - 25 mg/dL [facility] Glucose 206(H) 70 - 199 mg/dL [facility] Creatinine 0.79 0.70 - 1.30 mg/dL [facility] Calcium 9.8 8.5 - 10.3 mg/dL [facility] Chloride 100 97 - 110 mmol/L [facility] Comment:fixed result mapping Albumin 4.0 3.5 - 5.0 g/dL [facility] AST 108(H) 10 - 50 Units/L [facility] ALT 128(H) 7 - 55 Units/L [facility] Alk phos 445(H) 40 - 130 Units/L [facility] Bilirubin, total 0.7 0.1 - 1.2 mg/dL [facility] Protein, pl 7.6 6.5 - 8.5 g/dL [facility] Anion gap 5 2 - 15 mmol/L [facility] Blood specimen (specimen) 02/04/2017 8:20 AM CDT 02/04/2017 8:38 AM CDT us Josué Del Valle MD PhD LAB BLOOD ORDERABLES Fin al Result [facility] Department [place] [address] documented in this encounter Visit Diagnoses Not on filedocumented in this encounter Additional Health Concerns Infection Onset Date Last Indicated Resolved Time VRE Comment:Backloaded September 06, 2011 11/26/2010 11/26/201006/18 5:00 AM CDT documented as of this encounter
--- OUTSIDE RECORDS SUMMARY | 2024-11-22 13:11 | XMS_ITS | Encounter Summary ---
Author Organization [facility] Healthcare Address [address] [place] [address] Care Team Providers Care Vice President And Portfolio Manager Name Role Phone Unavailable Primary Care Provider Unavailabl e Encounter Details Date Type Department Care Team (Late st Contact Info) Description 02/04/2017 Orders Only [facility] Interim [phone] Josué Del Valle MD PhD [address] IM BONE MARROW TRANSPLANT, [address] [place], [place] [id number] Social History Tobacco Use Types Packs/Day Years Used Date Smoking Tobacco: Never Assessed Sex and Gender Information Value Date Recorded Sex Assigned at Not on file Legal 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
--- OUTSIDE RECORDS SUMMARY | 2024-11-22 13:11 | XMS_ITS | Encounter Summary ---
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); Umbilical hernia without obstruction or gangrene Social History Tobacco Use Types Packs/Day Years Used Date Smoking Tobacco: Never Assessed Sex and Gender Information Value Date Recorded Sex Assigned at Not on file Legal Sex Male 10:48 AM DRILLER MACHINE Gender Identity Not on file Sexual Orientation [...] ABDOMEN LIMITED Routine 10/31/2016 10 :39 AM DRILLER MACHINE documented in this encounter Results * US Abdomen Limited (10/31/2016 10:39 AM DRILLER MACHINE) Anatomical Region Laterality Modality Abdomen N/A Ultrasound 10/31/2016 10:3 9 AM DRILLER MACHINE Narrative 10/31/2016 11:28 AM DRILLER MACHINE SYLWIA HATFIELD M.D. MAGDA MOTTA M.D. FINAL REPORT The radiology attending physician has personally reviewed this study, and has reviewed and/or edited this written report and agrees with it. ACC# ??Date Time ??Exam [id number] Oct 31, 2016 10:39:00 03996 [facility] EXAMINATION: ?? LIMITED ABDOMINAL [...] HATFIELD M.D. on Oct 31 2016 11:28A [id number] Procedure Note Provider, MD Shmuel - 03/26/2017 SYLWIA HATFIELD M.D. MAGDA MOTTA M.D. FINAL REPORT The radiology attending physician has personally reviewed this study, and has reviewed and/or edited this written report and agrees with it. ACC# Date Time Exam [id number] Oct 31, 2016 10:39:00 [id number] [facility] EXAMINATION: LIMITED ABDOMINAL SONOGRAM [...] HATFIELD M.D. on Oct 31 2016 11:28A [id number] Historical Provider IMWilder US PROCEDURES Final R [...]
--- OUTSIDE RECORDS SUMMARY | 2024-11-22 13:11 | XMS_ITS | Encounter Summary ---
Author Organization [facility] Facility Care Team Providers Care Triple Drum Operator Name Role Phone Unavailable Primary Care Provider Unavailabl e Encounter Details Date Type Department Care Team (Latest Contact Info) Description 12/14/2016 10:32 AM FILING 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 - 12/14/2016 11:59 PM [facility] Hospital Encounter [facility] Senthil Boggs MD [phone] [place] [address] Encounter for preprocedural laboratory examination; Umbilical hernia without obstruction or gangrene; Personal history of other venous thrombosis and embolism; Type 2 diabetes mellitus with diabetic neuropathy (CMS/HCC); termite renewal inspector current use of insulin (CMS/HCC); Chronic obstructive pulmonary disease (CMS/HCC); Other myeloid leukemia, in remission (CMS/HCC); Personal history of antineoplastic chemotherapy; Personal history of irradiation; Disorder involving immune mechanism (CMS/HCC); Bihpy-mcraij-wimc disease (CMS/HCC); Family history of ischemic heart disease and other diseases of the circulatory system; Cigarette nicotine dependence, uncomplicated; Other termite renewal inspector (current) drug therapy Social History Tobacco Use Types Packs/Day Years Used Date Smoking Tobacco: Never Assessed Sex and Gender Information Value Date Recorded Sex Assigned at Not on file Legal Sex Male 10:48 AM FILING 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 Gender Identity Not on file Sexual Orientation Not on file documented as of this encounter Last Filed Vital Signs Vital Sign Reading Time Taken Comments Blood Pressure - - Pulse - - Temperature - - Respiratory Rate - - Oxygen Saturation - - Inhaled Oxygen Concentration - - Weight - - Height 177.8 cm (5' 10 ) 01/23/2013 1:18 AM FILING 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 Body Mass Index - - documented in [...] BASIC METABOLIC PANEL Routine 12/14/2016 2:49 PM FILING 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 DISCHARGE LABORATORY CUMULATIVE REPORT 12/14/2016 documented in this encounter Results * Plasma basic metabolic panel (12/14/2016 2:49 PM FILING 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) Sodium 140 135 - 145 mmol/L CDR [...] CDR HISTORICAL RESULTS Plasma 12/14/2016 2:49 PM FILING 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 Katherine Nguyen NP LAB BLOOD ORDERABLES Final [...] diabetes mellitus with diabetic neuropathy (CMS/HCC) (HCC) termite renewal inspector current use of insulin (CMS/HCC) (HCC) Chronic obstructive pulmonary disease (HCC) Other myeloid leukemia, in remission (HCC) Personal history of antineoplastic chemotherapy Personal history of irradiation Personal history of irradiation, presenting hazards to health Disorder involving immune mechanism (HCC) Qunrd-uoqfqm-tmgm disease (HCC) Family history of ischemic heart disease and other diseases of the circulatory system Cigarette nicotine dependence, uncomplicated Other termite renewal inspector (current) drug therapy documented in this encounter Additional Health Concerns Infection Onset Date Last Indicated Resolved Time VRE Comment:Backloaded September 06, 2011 11/26/2010 11/26/201006/18 5:00 AM CDT documented as of this encounter
--- OUTSIDE RECORDS SUMMARY | 2024-11-22 13:12 | XMS_ITS | Encounter Summary ---
Author Organization [facility] Healthcare Address [address] [place] [address] Care Team Providers Care Motor Power Connector Name Role Phone Unavailable Primary Care Provider Unavailabl e Encounter Details Date Type Department Care Team (Late st Contact Info) Description 04/02/2013 2:53 PM CDT - 04/02/2013 11:59 PM CDT Hospital Encounter [facility] Elmo Gipson MD [address] [place] [id number] Social History Tobacco Use Types Packs/Day Years Used Date Smoking Tobacco: Never Assessed Sex and Gender Information Value Date Recorded Sex Assigned at Not on file Legal Sex Male 10:48 AM TIRE ADJUSTER Gender Identity Not on file Sexual [...]
--- OUTSIDE RECORDS SUMMARY | 2024-11-22 13:12 | XMS_ITS | Encounter Summary ---
Author Organization [facility] Facility Care Team Providers Care Network Manager Name Role Phone Unavailable Primary Care Provider Unavailabl e Encounter Details Date Type Department Care Team (Late st Contact Info) Description 03/20/2013 - 03/20/2013 11:59 PM CDT Hospital Encounter [facility] Josué Armenta MD PhD [address] DIV BONE MARROW TRANSPLANT, [address] [place] [address] Calculus of gallbladder; Personal history of myeloid leukemia; Acute myeloid leukemia (HCC) Social History Tobacco Use Types Packs/Day Years Used Date Smoking Tobacco: Never Assessed Sex and Gender Information Value Date Recorded Sex Assigned at Not on file Legal Sex Male 10:48 AM [employer] Gender Identity Not on file Sexual Orientation [...] M.D. FINAL REPORT ACC# ??Date Time ??Exam [id number] March 20, 2013 12:43:00 13556 Sono Abd Complt EXAMINATION: ?? COMPLETE ABDOMINAL [...] M.D. FINAL REPORT ACC# Date Time Exam [id number] March 20, 2013 12:43:00 73704 Sono Abd Complt EXAMINATION: COMPLETE ABDOMINAL SONOGRAM HISTORY: 47-year-old male with history of acute myelogenous leukemia and acute pancreatitis here for evaluation of gallstones. FINDINGS: The gallbladder is normal in size. There are a few small mobile stones within the gallbladder. There is no gallbladder wall thickening, pericholecystic fluid, or sonographic Arredondo sign. The liver is normal in size, [...]
--- OUTSIDE RECORDS SUMMARY | 2024-11-22 13:12 | XMS_ITS | Encounter Summary ---
Author Organization [facility] Healthcare Address [address] [place] [address] Care Team Providers Care Tractor Trailer Operator Name Role Phone Unavailable Primary Care Provider Unavailabl e Encounter Details Date Type Department Care Team (Late st Contact Info) Description 01/29/2013 10:00 AM CDT - 01/29/2013 11:59 PM CDT Hospital Encounter [facility] Elmo Gipson MD [address] [place] [id number] Social History Tobacco Use Types Packs/Day Years Used Date Smoking Tobacco: Never Assessed Sex and Gender Information Value Date Recorded Sex Assigned at Not on file Legal Sex Male 10:48 AM TERMITE CONTROL SERVICER Gender Identity Not on file Sexual [...]
--- OUTSIDE RECORDS SUMMARY | 2024-11-22 13:12 | XMS_ITS | Encounter Summary ---
Author Organization [facility] Facility Care Team Providers Care Doctor Of Podiatry Name Role Phone Unavailable Primary Care Provider Unavailabl e Encounter Details Date Type Department Care Team (Late st Contact Info) Description 01/22/2013 7:18 PM ROUTE MANAGER - 02/18/2013 4:21 PM CDT Hospital Encounter [facility] Silva Gregg MD [address] DIV IM [employer], [address] [address] Carmen Alexander MD [address] [facility] [address] [place] [address] Josué Del Valle MD PhD [address] DIV [employer], [address] [place] [address] Septicemia (HCC); Acute pancreatitis; Other pulmonary embolism and infarction; Acute respiratory failure (HCC); Chronic rerhe-ucvjvl-waou disease (HCC); Complication of stem cell transplant [...] on file Legal Sex Male 10:48 AM ROUTE MANAGER Gender Identity Not on file Sexual [...] cm (5' 10.08 ) 01/23/2013 1:18 AM ROUTE MANAGER Body Mass Index 22.96 01/23/2013 1:18 AM ROUTE MANAGER documented in this encounter Medications at Time [...] SERUM CALCIUM, IONIZED Routine 3 1:40 AM ROUTE MANAGER BLOOD GAS, POINT OF CARE, ARTERIAL Routine 01/25/2013 1:32 AM ROUTE MANAGER SERUM VANCOMYCIN DRUG LEVEL Routine 01/24/2013 11:10 PM ROUTE MANAGER SERUM MAGNESIUM Routine 01/24/2013 11:10 PM ROUTE MANAGER PLASMA PHOSPHORUS Routine 01/24/2013 11: 10 PM ROUTE MANAGER PLASMA COMPREHENSIVE METABOLIC PANEL Routine 01/24/2013 11:10 PM ROUTE MANAGER PLASMA PROTHROMBIN TIME (PT) Routine 01/24/2013 10:30 PM ROUTE MANAGER PLASMA PARTIAL THROMBOPLASTIN TIME (PTT) Routine 01/24/2013 10:30 PM ROUTE MANAGER BLOOD CELL COUNT (CBC) Routine 3 10:30 PM ROUTE MANAGER BLOOD CELL MORPHOLOGIC EXAM Routine 01/24/2013 10:30 PM ROUTE MANAGER PLASMA BASIC METABOLIC PANEL Routine 01/24/2013 9:50 PM ROUTE MANAGER BLOOD TACROLIMUS (FK-506) DRUG LEVEL Routine 01/24/2013 8:55 PM ROUTE MANAGER BLOOD GLUCOSE, POC Routine 01/24/2013 8: 04 PM ROUTE MANAGER BLOOD GLUCOSE, POC Routine 01/24/2013 4: 10 PM ROUTE MANAGER URINE UREA NITROGEN Routine 01/24/2013 3 :15 PM ROUTE MANAGER URINE SODIUM Routine 01/24/2013 3:15 PM ROUTE MANAGER URINE POTASSIUM Routine 01/24/2013 3:15 PM ROUTE MANAGER URINE CREATININE Routine 01/24/2013 3:15 PM ROUTE MANAGER URINE CHLORIDE Routine 01/24/2013 3:15 PM ROUTE MANAGER SERUM LIPASE Routine 01/24/2013 12:30 PM ROUTE MANAGER PLASMA BASIC METABOLIC PANEL Routine 01/24/2013 12:30 PM ROUTE MANAGER CRITICAL RESULT CALL BACK Routine 2012 12:30 PM ROUTE MANAGER BLOOD GLUCOSE, POC Routine 01/24/2013 12 :09 PM ROUTE MANAGER BLOOD GAS, POINT OF CARE, ARTERIAL Routine 01/24/2013 10:42 AM ROUTE MANAGER BLOOD GLUCOSE, POC Routine 01/24/2013 8: 17 AM ROUTE MANAGER BLOOD GAS, POINT OF CARE, ARTERIAL Routine 01/24/2013 6:01 AM ROUTE MANAGER PLASMA LACTIC ACID Routine 01/24/2013 4: 48 AM ROUTE MANAGER BLOOD GAS, POINT OF CARE, VENOUS Routine 01/24/2013 4:05 AM ROUTE MANAGER XR CHEST 1 VIEW Routine 01/24/2013 3:44 AM ROUTE MANAGER PLASMA COMPREHENSIVE METABOLIC PANEL Routine 01/24/2013 2:00 AM ROUTE MANAGER BLOOD CELL COUNT (CBC) Routine 3 2:00 AM ROUTE MANAGER BLOOD CELL MORPHOLOGIC EXAM Routine 01/24/2013 2:00 AM ROUTE MANAGER BLOOD GLUCOSE, POC Routine 01/24/2013 1: 56 AM ROUTE MANAGER BLOOD GAS, POINT OF CARE, ARTERIAL Routine 01/24/2013 1:56 AM ROUTE MANAGER XR CHEST 1 VIEW Routine 01/23/2013 7:07 PM ROUTE MANAGER BLOOD CULTURE, CDR Routine 01/23/2013 6: 45 PM ROUTE MANAGER SERUM TROPONIN I Routine 01/23/2013 6:45 PM ROUTE MANAGER PLASMA LACTIC ACID Routine 01/23/2013 6: 45 PM ROUTE MANAGER BLOOD B-TYPE NATRIURETIC PEPTIDE (BNP) Routine 01/23/2013 6:45 PM ROUTE MANAGER BLOOD CULTURE, CDR Routine 01/23/2013 6: 25 PM ROUTE MANAGER BLOOD GAS, ARTERIAL Routine 01/23/2013 6 :25 PM ROUTE MANAGER BLOOD GLUCOSE, POC Routine 01/23/2013 5: 51 PM ROUTE MANAGER URINE (AEROBIC) CULTURE, CDR Routine 01/23/2013 4:20 PM ROUTE MANAGER URINE MICROSCOPY Routine 01/23/2013 4:20 PM ROUTE MANAGER URINALYSIS Routine 01/23/2013 4:20 PM ROUTE MANAGER PLASMA CORTISOL Routine 01/23/2013 3:10 PM ROUTE MANAGER CRITICAL RESULT CALL BACK Routine 2012 3:10 PM ROUTE MANAGER BLOOD LACTIC ACID Routine 01/23/2013 3:1 0 PM ROUTE MANAGER XR CHEST 1 VIEW Routine 01/23/2013 1:51 PM ROUTE MANAGER SERUM LIPASE Routine 01/23/2013 1:30 PM ROUTE MANAGER SERUM LIPASE Routine 01/23/2013 1:30 PM ROUTE MANAGER SERUM CALCIUM, IONIZED Routine 3 1:30 PM ROUTE MANAGER PLASMA PROTHROMBIN TIME (PT) Routine 01/23/2013 1:30 PM ROUTE MANAGER PLASMA PARTIAL THROMBOPLASTIN TIME (PTT) Routine 01/23/2013 1:30 PM ROUTE MANAGER PLASMA COMPREHENSIVE METABOLIC PANEL Routine 01/23/2013 1:30 PM ROUTE MANAGER CRITICAL RESULT CALL BACK Routine 2012 1:30 PM ROUTE MANAGER BLOOD CELL COUNT (CBC) Routine 3 1:30 PM ROUTE MANAGER BLOOD GLUCOSE, POC Routine 01/23/2013 12 :11 PM ROUTE MANAGER BLOOD GLUCOSE, POC Routine 01/23/2013 11 :35 AM ROUTE MANAGER US ABDOMEN COMPLETE Routine 01/23/2013 1 1:01 AM ROUTE MANAGER BLOOD GLUCOSE, POC Routine 01/23/2013 10 :00 AM ROUTE MANAGER XR ABDOMEN 2 VW Routine 01/23/2013 9:47 AM ROUTE MANAGER BLOOD CELL COUNT Routine 01/23/2013 7:00 AM ROUTE MANAGER BLOOD TACROLIMUS (FK-506) DRUG LEVEL Routine 01/23/2013 6:00 AM ROUTE MANAGER BLOOD GLUCOSE, POC Routine 01/23/2013 12 :01 AM ROUTE MANAGER ELECTROCARDIOGRAPHY (ECG) 01/23/2013 ELECTROCARDIOGRAPHY (ECG) 01/23/2013 ELECTROCARDIOGRAPHY (ECG) 01/23/2013 ELECTROCARDIOGRAPHY (ECG) 01/23/2013 ELECTROCARDIOGRAPHY (ECG) 01/23/2013 ALL MICROBIOLOGY REPORT SECTION Routine 01/23/2013 12:00 AM ROUTE MANAGER ALL MICROBIOLOGY REPORT SECTION Routine 01/23/2013 12:00 AM ROUTE MANAGER ALL MICROBIOLOGY REPORT SECTION Routine 01/23/2013 12:00 AM ROUTE MANAGER XR ABDOMEN 2 VW Routine 01/22/2013 11:07 PM ROUTE MANAGER SERUM TROPONIN I Routine 01/22/2013 9:01 PM ROUTE MANAGER SERUM LIPID PANEL Routine 01/22/2013 9:0 1 PM ROUTE MANAGER SERUM LIPASE Routine 01/22/2013 9:01 PM ROUTE MANAGER SERUM HELICOBACTER PYLORI AB, IGG Routine 01/22/2013 9:01 PM ROUTE MANAGER SERUM CHOLESTEROL, LDL Routine 3 9:01 PM ROUTE MANAGER PLASMA PROTHROMBIN TIME (PT) Routine 01/22/2013 9:01 PM ROUTE MANAGER PLASMA PARTIAL THROMBOPLASTIN TIME (PTT) Routine 01/22/2013 9:01 PM ROUTE MANAGER PLASMA HEPATIC FUNCTION PANEL Routine 01/22/2013 9:01 PM ROUTE MANAGER PLASMA BASIC METABOLIC PANEL Routine 01/22/2013 9:01 PM ROUTE MANAGER PLASMA AMYLASE Routine 01/22/2013 9:01 PM ROUTE MANAGER CRITICAL RESULT CALL BACK Routine 2012 9:01 PM ROUTE MANAGER BLOOD HEMOGLOBIN A1C Routine 01/22/2013 9:01 PM ROUTE MANAGER BLOOD CELL COUNT (CBC) Routine 3 9:01 PM ROUTE MANAGER BLOOD ABO, RH, INDIRECT AB SCREEN Routine 01/22/2013 9:01 PM ROUTE MANAGER BLOOD CELL MORPHOLOGIC EXAM Routine 01/22/2013 9:01 PM ROUTE MANAGER ELECTROCARDIOGRAPHY (ECG) 01/22/2013 ELECTROCARDIOGRAPHY (ECG) 01/22/2013 documented in this encounter Results * Blood glucose, POC (02/18/2013 11:58 AM CDT) Pathologist [facility] Glucose, POC, bld 144 65 - 199 mg/dl HISTORICAL RESULTS Blood specimen (specimen) 02/18/2013 11:58 AM CDT us Silva Taylor MD LAB BLOOD ORDERABLES F inal Result Performing Organization Address [facility] Co de Phone Number HISTORICAL RESULTS * (ABNORMAL) Plasma comprehensive metabolic panel (02/18/2013 11:00 AM CDT) Pathologist [facility] Sodium 138 135 - 145 mmol/L HISTORICAL [...] ORDERABLES Final R esult Performing Organization Address [facility]/ZIP Co de Phone Number HISTORICAL RESULTS * (ABNORMAL) Serum lactate dehydrogenase (LDH) (02/18/2013 11:00 AM CDT) Lactate dehydrogenase (LDH) 279(H) 100 - 250 Units/L HISTORICAL RESULTS Serum 02/18/2013 11:0 0 AM CDT Ni Agarwal LAB BLOOD ORDERABLES Final R esult Performing Organization Address [facility] de Phone Number HISTORICAL RESULTS * Plasma phosphorus (02/18/2013 11:00 AM CDT) Phosphorus, pl 3.1 2.3 - 4.3 mg/dl HISTORICAL RESULTS Plasma 02/18/2013 11:0 0 AM CDT Ni Agarwal LAB BLOOD ORDERABLES Final R [facility] Performing Organization Address [facility] de Phone Number HISTORICAL RESULTS * Serum uric acid (02/18/2013 11:00 AM CDT) Uric acid 7.9 3.0 - 8.0 mg/dl HISTORICAL RESULTS Serum 02/18/2013 11:0 0 AM CDT Ni Agarwal LAB BLOOD ORDERABLES Final R [facility] Performing Organization Address [facility] de Phone Number HISTORICAL RESULTS * Serum magnesium (02/18/2013 11:00 AM CDT) Magnesium 1.4 1.4 - 2.5 mg/dl HISTORICAL RESULTS Serum 02/18/2013 11:0 0 AM CDT Ni Agarwal LAB BLOOD ORDERABLES [facility] Performing Organization Address [facility] de Phone Number HISTORICAL RESULTS [...] ORDERABLES Final R esult Performing Organization Address [facility] de Phone Number HISTORICAL RESULTS * Blood tacrolimus (FK-506) drug level (02/18/2013 9:59 AM CDT) Tacrolimus 7.5 ng/ml HISTORICA L RESULTS Comment: Interpretive Data This test was developed using an analyte specific reagent. ??Its performance characteristics were determined by the [facility] in a manner consistent with CLIA requirements. This test has not been cleared or approved by the U.S. Food and Drug Administration. Current interpretive data was last revised on 2012. Blood specimen (specimen) 02/18/2013 9:59 AM CDT Derrick Dominguez MD LAB BLOOD ORDERABLES Pilar l Result Performing Organization Address [facility] de Phone Number HISTORICAL RESULTS * Blood glucose, POC (02/18/2013 8:01 AM CDT) Glucose, POC, bld 173 65 - 199 mg/dl HISTORICAL RESULTS Blood specimen (specimen) 02/18/2013 8:01 AM CDT Silva Taylor MD LAB BLOOD ORDERABLES F inal Result Performing Organization Address [facility] de Phone Number HISTORICAL RESULTS * Discharge Laboratory Cumulative Report (02/18/2013 12:00 AM CDT) 02/18/2013 Narrative HISTORICAL RESULTS - 02/19/2013 3:20 AM CDT ?[facility] ?Department of Laboratories ? [address] [facility] [address] ? [address] [address] [address] Patient Name: ??BRI JONES Rec Number: [id number] Fin Number: ?[id number] Date: ?1965 Sex/Age: ? Male 47 years Admit Date: ?01/22/2013 Discharge Date: 02/18/2013 Doctor: ?Josué Del Valle Facility: ?[facility] Location: ?OTHER Chart Printed: 02/19/2013 03:20 [...] and children were not included. ??(Diabetes Care [id number], 2008). ??The eAG is not equivalent to [...] Corrected from 2104 on 01/23/2013 15:55:20 by CODE OFFICIAL 01/23/2013 13:30:00 ??Lipase: Credited, duplicate test. ? [...] ??Its performance characteristics were determined by the [facility] in a manner consistent with CLIA requirements. ??This test has not been cleared or approved by the U.S. Food and Drug Administration. Current interpretive data was last revised on 2012. 01/23/2013 06:00:00 Tacrolimus, Rnd: Interpretive Data This test was developed using an analyte specific reagent. ??Its performance characteristics were determined by the [facility] in a manner consistent with CLIA requirements. ??This test has not been cleared or approved by the U.S. Food and Drug Administration. Current interpretive data was last revised on 2012. ?URINALYSIS ?Macroscopic ?Test: Color ? Clarity ??Specific [place] ??pH ? Reference: [Yellow] ??[Clear] ??[1.003-1.030] ? [...] ?Test: Neut Pct Auto ??Lymph Pct Auto ??Pratt Pct Auto ? Reference: [38.7-74.5] ?[20.0-54.3] ? [...] ?Test: Neut Pct Auto ??Lymph Pct Auto ??Pratt Pct Auto ? Reference: [38.7-74.5] ?[20.0-54.3] ? [...] 0.2 ?19.8 ??H ?Test: Lymph Abs Auto ??Pratt Abs Auto ??Eos Abs Auto ? Reference: [...] ?? 3-7/HPF ??* ?3-7/HPF ??* ?Test: G[place] Bodies ??Basophilic Stip ? Reference: [None Seen] [...] 2.5-3.5 INR *See the pharmacy resource directory ([employer]) for an updated copy of the Tool Book at [email or web address] Current Interpretive Data was last revised 2012. [...] on the Evaluation and Management of HIT, [employer], 2009). The OLEG result [...] ??L ?230 ??H ? 45.0 ?Test: Bicarb Eriberto gPOC ??TCO2 Eriberto gPOC ? Reference: [20-30] [...] type and screen. ? Date/Time received: ??02/11/13 8245. ? Specimen type: ??pink top. 02/11/2013 ??11:00:00 [...] (<200 copies/ml) ORDER COMMENTS (1)Testing performed by: [facility], [place], [place]. ??[address]. * * * ??Interpretive Results ??* * * (1)This assay is based on quantitative real-time PCR. ??The primers used amplify a conserved 61 bp region of the DNA polymerase gene of human CMV. ??Based on data from the [facility], these primers do not [...] developed and its performance characteristics determined by [facility]. ??It has not been cleared or approved by the U.S. Food and Drug Administration. ??Current interpretive data was last revised on 2009. ? MICROBIOLOGY - ALL TESTS ? PROCEDURE: Cytomegalovirus PCR, Blood ?SOURCE: Blood COLLECTED: 02/01/13 ??1038 ? BODY SITE: STARTED: 02/01/13 ??1340 FREE TEXT SOURCE: FINAL REPORT REPORTED: 02/03/13 0604 Negative (<200 copies/ml) ORDER COMMENTS (1)Testing performed by: [facility], [place], [place]. ??[address]. * * * ??Interpretive Results ??* * * (1)This assay is based on quantitative real-time PCR. ??The primers used amplify a conserved 61 bp region of the DNA polymerase gene of human CMV. ??Based on data from the [facility], these primers do not [...] developed and its performance characteristics determined by [facility]. ??It has not been cleared or approved by the U.S. Food and Drug Administration. ??Current interpretive data was last revised on 2009. ? MICROBIOLOGY - ALL TESTS ? PROCEDURE: Cytomegalovirus PCR, Blood ?SOURCE: Blood COLLECTED: 01/30/13 ??0750 ? BODY SITE: STARTED: 01/30/13 ??1128 FREE TEXT SOURCE: FINAL REPORT REPORTED: 01/31/13 0658 Negative (<200 copies/ml) ORDER COMMENTS (1)Testing performed by: [facility], [place], [place]. ??[address]. * * * ??Interpretive Results ??* * * (1)This assay is based on quantitative real-time PCR. ??The primers used amplify a conserved 61 bp region of the DNA polymerase gene of human CMV. ??Based on data from the [facility], these primers do not [...] developed and its performance characteristics determined by [facility]. ??It has not been [...] (<200 copies/ml) ORDER COMMENTS (1)Testing performed by: [facility], [place]. ??[address]. * * * ??Interpretive Results ??* * * (1)This assay is based on quantitative real-time PCR. ??The primers used amplify a conserved 61 bp region of the DNA polymerase gene of human CMV. ??Based on data from the [facility], these primers do not [...] developed and its performance characteristics determined by [facility]. ??It has not been cleared or approved by the U.S. Food and Drug Administration. ??Current interpretive data was last revised on 2009. ? MICROBIOLOGY - MOLECULAR TESTING ? PROCEDURE: Cytomegalovirus PCR, Blood ?SOURCE: Blood COLLECTED: 02/01/13 ??1038 ? BODY SITE: STARTED: 02/01/13 ??1340 FREE TEXT SOURCE: FINAL REPORT REPORTED: 02/03/13 0604 Negative (<200 copies/ml) ORDER COMMENTS (1)Testing performed by: [facility], [place], [place]. ??[address]. * * * ??Interpretive Results ??* * * (1)This assay is based on quantitative real-time PCR. ??The primers used amplify a conserved 61 bp region of the DNA polymerase gene of human CMV. ??Based on data from the [facility], these primers do not [...] developed and its performance characteristics determined by [facility]. ??It has not been cleared or approved by the U.S. Food and Drug Administration. ??Current interpretive data was last revised on 2009. ? MICROBIOLOGY - MOLECULAR TESTING ? PROCEDURE: Cytomegalovirus PCR, Blood ?SOURCE: Blood COLLECTED: 01/30/13 ??0750 ? BODY SITE: STARTED: 01/30/13 ??1128 FREE TEXT SOURCE: FINAL REPORT REPORTED: 01/31/13 0658 Negative (<200 copies/ml) ORDER COMMENTS (1)Testing performed by: [facility], [place], [place]. ??[address]. * * * ??Interpretive Results ??* * * (1)This assay is based on quantitative real-time PCR. ??The primers used amplify a conserved 61 bp region of the DNA polymerase gene of human CMV. ??Based on data from the [facility], these primers do not [...] developed and its performance characteristics determined by [facility]. ??It has not been [...] ORDERABLES Pilar l Result Performing Organization Address [facility] de Phone Number HISTORICAL RESULTS * Blood glucose, POC (02/17/2013 9:18 PM CDT) Glucose, POC, bld 100 65 - 199 mg/dl HISTORICAL RESULTS Gluc, com 1, bld RN Notified HISTORICAL RESULTS Blood specimen (specimen) 02/17/2013 9:18 PM CDT Silva Taylor MD LAB BLOOD ORDERABLES F inal Result Performing Organization Address [facility] de Phone Number HISTORICAL RESULTS * (ABNORMAL) Blood glucose, POC (02/17/2013 6:26 PM CDT) Glucose, POC, bld 221(H) 65 - 199 mg/dl HISTORICAL RESULTS Blood specimen (specimen) 02/17/2013 6:26 PM CDT Silva Taylor MD LAB BLOOD ORDERABLES F inal Result Performing Organization Address [facility] Co de Phone Number HISTORICAL RESULTS * Blood glucose, POC (02/17/2013 12:43 PM CDT) Glucose, POC, bld 147 65 - 199 mg/dl HISTORICAL RESULTS Blood specimen (specimen) 02/17/2013 12:43 PM CDT Silva Taylor MD LAB BLOOD ORDERABLES F inal Result Performing Organization Address [facility] de Phone Number HISTORICAL RESULTS [...] ORDERABLES Final R esult Performing Organization Address [facility] de Phone Number HISTORICAL RESULTS * Plasma phosphorus (02/17/2013 11:15 AM CDT) Phosphorus, pl 3.8 2.3 - 4.3 mg/dl HISTORICAL RESULTS Plasma 02/17/2013 11:1 5 AM CDT Ni Agarwal LAB BLOOD ORDERABLES Final R esult Performing Organization Address [facility] Co de Phone Number HISTORICAL RESULTS * Serum magnesium (02/17/2013 11:15 AM CDT) Magnesium 1.4 1.4 - 2.5 mg/dl HISTORICAL RESULTS Serum 02/17/2013 11:1 5 AM CDT Ni Agarwal LAB BLOOD ORDERABLES Final R esult Performing Organization Address [facility] Co de Phone Number HISTORICAL RESULTS * [...] Ni Agarwal LAB BLOOD ORDERABLES Final R [facility] Performing Organization Address [facility] de Phone Number HISTORICAL RESULTS [...] ORDERABLES Final R esult Performing Organization Address [facility] Co de Phone Number HISTORICAL RESULTS * Blood glucose, POC (02/17/2013 9:43 AM CDT) Glucose, POC, bld 99 65 - 199 mg/dl HISTORICAL RESULTS Blood specimen (specimen) 02/17/2013 9:43 AM CDT Silva Taylor MD LAB BLOOD ORDERABLES F inal Result Performing Organization Address [facility] Co de Phone Number HISTORICAL RESULTS * Blood glucose, POC (02/16/2013 8:40 PM CDT) Glucose, POC, bld 120 65 - 199 mg/dl HISTORICAL RESULTS Blood specimen (specimen) 02/16/2013 8:40 PM CDT Silva Taylor MD LAB BLOOD ORDERABLES F inal Result Performing Organization Address [facility] de Phone Number HISTORICAL RESULTS * (ABNORMAL) Blood glucose, POC (02/16/2013 5:06 PM CDT) Glucose, POC, bld 280(H) 65 - 199 mg/dl HISTORICAL RESULTS Gluc, com 1, bld RN Notified HISTORICAL RESULTS Blood specimen (specimen) 02/16/2013 5:06 PM CDT Silva Taylor MD LAB BLOOD ORDERABLES F inal Result Performing Organization Address [facility] Co de Phone Number HISTORICAL RESULTS * Blood glucose, POC (02/16/2013 11:46 AM CDT) Glucose, POC, bld 158 65 - 199 mg/dl HISTORICAL RESULTS Gluc, com 1, bld RN Notified HISTORICAL RESULTS Blood specimen (specimen) 02/16/2013 11:46 AM CDT Silva Taylor MD LAB BLOOD ORDERABLES F inal Result Performing Organization Address [facility] Co de Phone Number HISTORICAL RESULTS * [...] ORDERABLES Final R esult Performing Organization Address [facility] de Phone Number HISTORICAL RESULTS * Plasma phosphorus (02/16/2013 10:30 AM CDT) Phosphorus, pl 4.3 2.3 - 4.3 mg/dl HISTORICAL RESULTS Plasma 02/16/2013 10:3 0 AM CDT us Ni Agarwal LAB BLOOD ORDERABLES Final R esult Performing Organization Address [facility] Co de Phone Number HISTORICAL RESULTS * Serum magnesium (02/16/2013 10:30 AM CDT) Magnesium 1.9 1.4 - 2.5 mg/dl HISTORICAL RESULTS Serum 02/16/2013 10:3 0 AM CDT us Ni Agarwal LAB BLOOD ORDERABLES Final R esult Performing Organization Address [facility] de Phone Number HISTORICAL RESULTS [...] Ni Agarwal LAB BLOOD ORDERABLES Final R [facility] Performing Organization Address [facility] de Phone Number HISTORICAL RESULTS [...] Ni Agarwal LAB BLOOD ORDERABLES Final R [facility] Performing Organization Address [facility] de Phone Number HISTORICAL RESULTS * Blood glucose, POC (02/16/2013 7:39 AM CDT) Glucose, POC, bld 145 65 - 199 mg/dl HISTORICAL RESULTS Gluc, com 1, bld RN Notified HISTORICAL RESULTS Blood specimen (specimen) 02/16/2013 7:39 AM CDT Silva Taylor MD LAB BLOOD ORDERABLES F inal Result Performing Organization Address [facility] Co de Phone Number HISTORICAL RESULTS * Blood tacrolimus (FK-506), trough drug level (02/15/2013 9:30 PM CDT) Tacrolimus, trough 2.6 ng/ml H ISTORICAL RESULTS Comment: Interpretive Data This test was developed using an analyte specific reagent. ??Its performance characteristics were determined by the [facility] in a manner consistent with CLIA requirements. This test has not been cleared or approved by the U.S. Food and Drug Administration. Current interpretive data was last revised on 2012. Blood specimen (specimen) 02/15/2013 9:30 PM CDT Result [facility] Raman Lopez LAB BLOOD ORDERABLES Fin al Result Performing Organization Address [facility] Co de Phone Number HISTORICAL RESULTS * (ABNORMAL) Blood glucose, POC (02/15/2013 9:04 PM CDT) Pathologist [facility] Glucose, POC, bld 260(H) 65 - 199 mg/dl HISTORICAL RESULTS Gluc, com 1, bld RN Notified HISTORICAL RESULTS Blood specimen (specimen) 02/15/2013 9:04 PM CDT Silva Taylor MD LAB BLOOD ORDERABLES F inal Result Performing Organization Address [facility] Co de Phone Number HISTORICAL RESULTS * [...] ORDERABLES F inal Result Performing Organization Address [facility] Co de Phone Number HISTORICAL RESULTS * (ABNORMAL) Plasma comprehensive metabolic panel (02/15/2013 11:00 AM CDT) Pathologist [facility] Sodium 139 135 - 145 mmol/L HISTORICAL [...] ORDERABLES Final R esult Performing Organization Address [facility]/ZIP Co de Phone Number HISTORICAL RESULTS * (ABNORMAL) Serum lactate dehydrogenase (LDH) (02/15/2013 11:00 AM CDT) Lactate dehydrogenase (LDH) 298(H) 100 - 250 Units/L HISTORICAL RESULTS Serum 02/15/2013 11:0 0 AM CDT Result [facility] Ni Nimisha Agarwal LAB BLOOD ORDERABLES Final [facility] Performing Organization Address [facility] de Phone Number HISTORICAL RESULTS * Plasma partial thromboplastin time (PTT) (02/15/2013 11:00 AM CDT) APTT 29.0 25.0 - 37.0 seconds HISTORICAL RESULTS Comment: Interpretive Data Therapeutic heparin range:60.0 - 94.0 sec based on correlation with therapeutic heparin activity range of 0.3 -0.7 Units/mL. Current interpretive data was last revised on 2011. Plasma 02/15/2013 11:0 0 AM CDT Result [facility] Ni D Agarwal LAB BLOOD ORDERABLES Final [facility] Performing Organization Address [facility] de Phone Number HISTORICAL RESULTS * Plasma phosphorus (02/15/2013 11:00 AM CDT) Phosphorus, pl 3.8 2.3 - 4.3 mg/dl HISTORICAL RESULTS Plasma 02/15/2013 11:0 0 AM CDT Result [facility] Ni Rosswin LAB BLOOD ORDERABLES Final [facility] Performing Organization Address [facility] de Phone Number HISTORICAL RESULTS [...] Tool Book at http://[email or web address].[email or web address] Current Interpretive Data was last revised 2012. Plasma 02/15/2013 11:0 0 AM CDT Ni Agarwal LAB BLOOD ORDERABLES Final R [facility] Performing Organization Address [facility] de Phone Number HISTORICAL RESULTS * Serum uric acid (02/15/2013 11:00 AM CDT) Uric acid 7.2 3.0 - 8.0 mg/dl HISTORICAL RESULTS Serum 02/15/2013 11:0 0 AM CDT Ni Agarwal LAB BLOOD ORDERABLES Final [facility] Performing Organization Address [facility] de Phone Number HISTORICAL RESULTS * Serum magnesium (02/15/2013 11:00 AM CDT) Magnesium 1.5 1.4 - 2.5 mg/dl HISTORICAL RESULTS Serum 02/15/2013 11:0 0 AM CDT Ni Agarwal LAB BLOOD ORDERABLES Final [facility] Performing Organization Address [facility] de Phone Number HISTORICAL RESULTS [...] human CMV. ??Based on data from the [facility], these primers do not [...] developed and its performance characteristics determined by [facility]. ??It has not been cleared or approved by the U.S. Food and Drug Administration. ?? Current interpretive data was last revised on 2009. Narrative HISTORICAL RESULTS - 02/16/2013 6:43 AM CDT Negative (<200 copies/ml) us Historical Provider LAB MICROBIOLOGY - GENERA L ORDERABLES Final Result Performing Organization Address [facility] de Phone Number HISTORICAL RESULTS * Blood glucose, POC (02/15/2013 7:29 AM CDT) Glucose, POC, bld 126 65 - 199 mg/dl HISTORICAL RESULTS Blood specimen (specimen) 02/15/2013 7:29 AM CDT Silva Taylor MD LAB BLOOD ORDERABLES F inal Result Performing Organization Address [facility] de Phone Number HISTORICAL RESULTS * All Microbiology Report Section (02/15/2013 12:00 AM CDT) 02/15/2013 Narrative HISTORICAL RESULTS - 02/16/2013 10:36 AM CDT ? [facility] ?[facility] [address] ?[place], [place] [address] ? Patient Name: ??KAMRONBRI ? Med Rec Number: [id number] ? Fin Number: ?[id number] ? Date: ?1965 ? Sex/Age: ? Male 47 years ? Admit Date: ?01/22/2013 ? Discharge Date: ? Doctor: ?DiPersio, Josué F ? Facility: ?[facility] ? Location: ?[id number] ?* Abnormal ??A Alert ??f Footnote [...] ? ORDER COMMENTS ? (1)Testing performed by: [facility], [place], ? [place]. ??[address]. ?* * * ??Interpretive Results ??* * * ? (1)This assay is based on quantitative real-time PCR. ??The primers ? used amplify a conserved 61 bp region of the DNA polymerase gene ? of human CMV. ??Based on data from the [facility] ? Hospital Virology Laboratory, these primers do [...] its performance characteristics determined by . ? [facility]. ??It has not been cleared ? or approved by the U.S. Food and Drug Administration. ??Current ? interpretive data was last revised on 2009. ? Historical Provider LAB MICROBIOLOGY - GENERA L ORDERABLES Final Result Performing Organization Address [facility]/ZIP Co de Phone Number HISTORICAL RESULTS * (ABNORMAL) Blood glucose, POC (02/14/2013 8:46 PM CDT) Pathologist [facility] Glucose, POC, bld 281(H) 65 - 199 mg/dl HISTORICAL RESULTS Gluc, com 1, bld RN Notified HISTORICAL RESULTS Blood specimen (specimen) 02/14/2013 8:46 PM CDT Silva Taylor MD LAB BLOOD ORDERABLES F inal Result Performing Organization Address [facility]/ZIP Co de Phone Number HISTORICAL RESULTS * (ABNORMAL) Blood glucose, POC (02/14/2013 7:09 PM CDT) Pathologist [facility] Glucose, POC, bld 312(H) 65 - 199 mg/dl HISTORICAL RESULTS Blood specimen (specimen) 02/14/2013 7:09 PM CDT Silva Taylor MD LAB BLOOD ORDERABLES F inal Result Performing Organization Address [facility] de Phone Number HISTORICAL RESULTS * (ABNORMAL) Blood glucose, POC (02/14/2013 4:25 PM CDT) Glucose, POC, bld 226(H) 65 - 199 mg/dl HISTORICAL RESULTS Blood specimen (specimen) 02/14/2013 4:25 PM CDT Silva Taylor MD LAB BLOOD ORDERABLES F inal Result Performing Organization Address [facility] de Phone Number HISTORICAL RESULTS * (ABNORMAL) Blood glucose, POC (02/14/2013 1:29 PM CDT) Glucose, POC, bld 212(H) 65 - 199 mg/dl HISTORICAL RESULTS Blood specimen (specimen) 02/14/2013 1:29 PM CDT Silva Taylor MD LAB BLOOD ORDERABLES F inal Result Performing Organization Address [facility] de Phone Number HISTORICAL RESULTS [...] ORDERABLES Final R esult Performing Organization Address [facility] de Phone Number HISTORICAL RESULTS * Plasma phosphorus (02/14/2013 11:00 AM CDT) Phosphorus, pl 3.0 2.3 - 4.3 mg/dl HISTORICAL RESULTS Plasma 02/14/2013 11:0 0 AM CDT Ni Agarwal LAB BLOOD ORDERABLES [facility] Performing Organization Address [facility] de Phone Number HISTORICAL RESULTS * Serum magnesium (02/14/2013 11:00 AM CDT) Magnesium 1.6 1.4 - 2.5 mg/dl HISTORICAL RESULTS Serum 02/14/2013 11:0 0 AM CDT Ni Agarwal LAB BLOOD ORDERABLES Final R [facility] Performing Organization Address [facility] de Phone Number HISTORICAL RESULTS [...] ORDERABLES Final R esult Performing Organization Address [facility] de Phone Number HISTORICAL RESULTS * [...] R esult Performing Organization Address [facility] de Phone Number HISTORICAL RESULTS * Blood glucose, POC (02/14/2013 9:06 AM CDT) Glucose, POC, bld 93 65 - 199 mg/dl HISTORICAL RESULTS Blood specimen (specimen) 02/14/2013 9:06 AM CDT Silva Taylor MD LAB BLOOD ORDERABLES F inal Result Performing Organization Address [facility] de Phone Number HISTORICAL RESULTS * (ABNORMAL) Blood glucose, POC (02/13/2013 8:57 PM CDT) Glucose, POC, bld 210(H) 65 - 199 mg/dl HISTORICAL RESULTS Blood specimen (specimen) 02/13/2013 8:57 PM CDT Silva Taylor MD LAB BLOOD ORDERABLES F inal Result Performing Organization Address [facility] de Phone Number HISTORICAL RESULTS * (ABNORMAL) Blood glucose, POC (02/13/2013 5:58 PM CDT) Glucose, POC, bld 320(H) 65 - 199 mg/dl HISTORICAL RESULTS Blood specimen (specimen) 02/13/2013 5:58 PM CDT Silva Taylor MD LAB BLOOD ORDERABLES F inal Result Performing Organization Address [facility] de Phone Number HISTORICAL RESULTS * Blood glucose, POC (02/13/2013 11:29 AM CDT) Glucose, POC, bld 170 65 - 199 mg/dl HISTORICAL RESULTS Blood specimen (specimen) 02/13/2013 11:29 AM CDT Silva Taylor MD LAB BLOOD ORDERABLES F inal Result Performing Organization Address [facility] de Phone Number HISTORICAL RESULTS [...] ORDERABLES Final R esult Performing Organization Address [facility] de Phone Number HISTORICAL RESULTS * Plasma phosphorus (02/13/2013 10:30 AM CDT) Phosphorus, pl 3.5 2.3 - 4.3 mg/dl HISTORICAL RESULTS Plasma 02/13/2013 10:3 0 AM CDT Ni Agarwal LAB BLOOD ORDERABLES Final R esult Performing Organization Address [facility] Co de Phone Number HISTORICAL RESULTS * Serum magnesium (02/13/2013 10:30 AM CDT) Magnesium 1.4 1.4 - 2.5 mg/dl HISTORICAL RESULTS Serum 02/13/2013 10:3 0 AM CDT Ni Rosswin LAB BLOOD ORDERABLES Final [facility] Performing Organization Address [facility] de Phone Number HISTORICAL RESULTS [...] ORDERABLES Final R esult Performing Organization Address [facility] Co de Phone Number HISTORICAL RESULTS * [...] R esult Performing Organization Address [facility] de Phone Number HISTORICAL RESULTS * Blood glucose, POC (02/13/2013 8:29 AM CDT) Glucose, POC, bld 112 65 - 199 mg/dl HISTORICAL RESULTS Blood specimen (specimen) 02/13/2013 8:29 AM CDT Silva Taylor MD LAB BLOOD ORDERABLES F inal Result Performing Organization Address [facility] Phone Number HISTORICAL RESULTS * Blood glucose, POC (02/13/2013 3:05 AM CDT) Glucose, POC, bld 132 65 - 199 mg/dl HISTORICAL RESULTS Blood specimen (specimen) 02/13/2013 3:05 AM CDT Silva Taylor MD LAB BLOOD ORDERABLES F inal Result Performing Organization Address [facility] Phone Number HISTORICAL RESULTS * (ABNORMAL) Blood glucose, POC (02/12/2013 8:33 PM CDT) Glucose, POC, bld 229(H) 65 - 199 mg/dl HISTORICAL RESULTS Blood specimen (specimen) 02/12/2013 8:33 PM CDT Silva Taylor MD LAB BLOOD ORDERABLES F inal Result Performing Organization Address [facility] de Phone Number HISTORICAL RESULTS * (ABNORMAL) Blood glucose, POC (02/12/2013 5:54 PM CDT) Glucose, POC, bld 269(H) 65 - 199 mg/dl HISTORICAL RESULTS Blood specimen (specimen) 02/12/2013 5:54 PM CDT Silva Taylor MD LAB BLOOD ORDERABLES F inal Result Performing Organization Address [facility] de Phone Number HISTORICAL RESULTS * Blood glucose, POC (02/12/2013 1:52 PM CDT) Pathologist [facility] Glucose, POC, bld 163 65 - 199 mg/dl HISTORICAL RESULTS Blood specimen (specimen) 02/12/2013 1:52 PM CDT Silva Taylor MD LAB BLOOD ORDERABLES F inal Result Performing Organization Address [facility] de Phone Number HISTORICAL RESULTS * (ABNORMAL) Blood glucose, POC (02/12/2013 10:56 AM CDT) [facility] Glucose, POC, bld 64(L) 65 - 199 mg/dl HISTORICAL RESULTS Blood specimen (specimen) 02/12/2013 10:56 AM CDT Silva Taylor MD LAB BLOOD ORDERABLES F inal Result Performing Organization Address [facility] de Phone Number HISTORICAL RESULTS * (ABNORMAL) Plasma basic metabolic panel (02/12/2013 10:45 AM CDT) Pathologist [facility] Sodium 142 135 - 145 mmol/L HISTORICAL [...] ORDERABLES Final R esult Performing Organization Address City/[facility] Co de Phone Number HISTORICAL RESULTS * (ABNORMAL) Plasma phosphorus (02/12/2013 10:45 AM CDT) Phosphorus, pl 4.8(H) 2.3 - 4.3 mg/dl HISTORICAL RESULTS Plasma 02/12/2013 10:4 5 AM CDT Ni Nimisha Agarwal LAB BLOOD ORDERABLES Final [facility] Performing Organization Address [facility] de Phone Number HISTORICAL RESULTS * Serum magnesium (02/12/2013 10:45 AM CDT) Magnesium 1.7 1.4 - 2.5 mg/dl HISTORICAL RESULTS Serum 02/12/2013 10:4 5 AM CDT Ni Nimisha Agarwal LAB BLOOD ORDERABLES Final [facility] Performing Organization Address [facility] de Phone Number HISTORICAL RESULTS [...] ORDERABLES Final R esult Performing Organization Address [facility] de Phone Number HISTORICAL RESULTS [...] ORDERABLES Final R esult Performing Organization Address [facility] Phone Number HISTORICAL RESULTS * Blood glucose, POC (02/12/2013 6:04 AM CDT) Glucose, POC, bld 150 65 - 199 mg/dl HISTORICAL RESULTS Blood specimen (specimen) 02/12/2013 6:04 AM CDT Silva Taylor MD LAB BLOOD ORDERABLES F inal Result Performing Organization Address [facility] Phone Number HISTORICAL RESULTS * (ABNORMAL) Blood glucose, POC (02/12/2013 4:32 AM CDT) Glucose, POC, bld 51(L) 65 - 199 mg/dl HISTORICAL RESULTS Blood specimen (specimen) 02/12/2013 4:32 AM CDT Silva Taylor MD LAB BLOOD ORDERABLES F inal Result Performing Organization Address [facility] de Phone Number HISTORICAL RESULTS * Blood glucose, POC (02/12/2013 1:39 AM CDT) Glucose, POC, bld 101 65 - 199 mg/dl HISTORICAL RESULTS Blood specimen (specimen) 02/12/2013 1:39 AM CDT Silva Taylor MD LAB BLOOD ORDERABLES F inal Result Performing Organization Address [facility] de Phone Number HISTORICAL RESULTS * Blood glucose, POC (02/11/2013 7:59 PM CDT) Glucose, POC, bld 153 65 - 199 mg/dl HISTORICAL RESULTS Blood specimen (specimen) 02/11/2013 7:59 PM CDT Silva Taylor MD LAB BLOOD ORDERABLES F inal Result Performing Organization Address [facility] de Phone Number HISTORICAL RESULTS * (ABNORMAL) Blood glucose, POC (02/11/2013 3:08 PM CDT) Glucose, POC, bld 428(H) 65 - 199 mg/dl HISTORICAL RESULTS Gluc, com 1, bld RN Notified HISTORICAL RESULTS Blood specimen (specimen) 02/11/2013 3:08 PM CDT Silva Taylor MD LAB BLOOD ORDERABLES F inal Result Performing Organization Address [facility] de Phone Number HISTORICAL RESULTS * Blood ABO, Rh, indirect ab screen (02/11/2013 12:54 PM CDT) ABO, Rho(D) A Positive HISTORI RHODA RESULTS Ursula, indirect Negative HISTORICAL RESULTS Blood specimen (specimen) 02/11/2013 12:54 PM CDT Raman Lopez LAB BLOOD ORDERABLES Fin al Result Performing Organization Address [facility] de Phone Number HISTORICAL RESULTS [...] Ni Agarwal LAB BLOOD ORDERABLES Final R [facility] Performing Organization Address [facility] Co de Phone Number HISTORICAL RESULTS * (ABNORMAL) Serum lactate dehydrogenase (LDH) (02/11/2013 11:00 AM CDT) Lactate dehydrogenase (LDH) 353(H) 100 - 250 Units/L HISTORICAL RESULTS Serum 02/11/2013 11:0 0 AM CDT Ni Agarwal LAB BLOOD ORDERABLES Final R esult HISTORICAL RESULTS * Mislabeled test (02/11/2013 11:00 AM CDT) Pathologist [facility] Mislabeled specimen Test requested: type and screen. Date/Time received: ??02/11/13 4315. Specimen type: ??pink top One Signature on Blood Bank Specimen Testing canceled HISTORICAL RESULTS No specimen 02/11/2013 11:0 0 AM CDT Ni Bansal Agarwal LAB BLOOD ORDERABLES Final R esult Performing Organization Address [facility] de Phone Number HISTORICAL RESULTS * Plasma phosphorus (02/11/2013 11:00 AM CDT) Phosphorus, pl 3.3 2.3 - 4.3 mg/dl HISTORICAL RESULTS Plasma 02/11/2013 11:0 0 AM CDT Ni Agarwal LAB BLOOD ORDERABLES Final [facility] Performing Organization Address [facility] de Phone Number HISTORICAL RESULTS * Serum uric acid (02/11/2013 11:00 AM CDT) Uric acid 3.8 3.0 - 8.0 mg/dl HISTORICAL RESULTS Serum 02/11/2013 11:0 0 AM CDT Ni D Agarwal LAB BLOOD ORDERABLES Final [facility] Performing Organization Address [facility] de Phone Number HISTORICAL RESULTS * Serum magnesium (02/11/2013 11:00 AM CDT) Magnesium 1.8 1.4 - 2.5 mg/dl HISTORICAL RESULTS Serum 02/11/2013 11:0 0 AM CDT Ni D Agarwal LAB BLOOD ORDERABLES Final R esult Performing Organization Address [facility] de Phone Number HISTORICAL RESULTS [...] Ni Rosswin LAB BLOOD ORDERABLES Final R [employer] HISTORICAL RESULTS * (ABNORMAL) Blood glucose, POC (02/11/2013 8:08 AM CDT) Glucose, POC, bld 218(H) 65 - 199 mg/dl HISTORICAL RESULTS Blood specimen (specimen) 02/11/2013 8:08 AM CDT Silva Taylor MD LAB BLOOD ORDERABLES F inal Result Performing Organization Address [facility] de Phone Number HISTORICAL RESULTS * (ABNORMAL) Blood glucose, POC (02/11/2013 2:32 AM CDT) [facility] Glucose, POC, bld 205(H) 65 - 199 mg/dl HISTORICAL RESULTS Blood specimen (specimen) 02/11/2013 2:32 AM CDT Silva Taylor MD LAB BLOOD ORDERABLES F inal Result Performing Organization Address [facility] de Phone Number HISTORICAL RESULTS * (ABNORMAL) Blood glucose, POC (02/10/2013 7:29 PM CDT) [facility] Glucose, POC, bld 258(H) 65 - 199 mg/dl HISTORICAL RESULTS Blood specimen (specimen) 02/10/2013 7:29 PM CDT Silva Taylor MD LAB BLOOD ORDERABLES F inal Result Performing Organization Address [facility] de Phone Number HISTORICAL RESULTS * (ABNORMAL) Blood glucose, POC (02/10/2013 2:39 PM CDT) [facility] Glucose, POC, bld >450(C) 65 - 199 mg/dl HISTORICAL RESULTS Blood specimen (specimen) 02/10/2013 2:39 PM CDT Silva Taylor MD LAB BLOOD ORDERABLES F inal Result Performing Organization Address [facility] de Phone Number HISTORICAL RESULTS * (ABNORMAL) Plasma basic metabolic panel (02/10/2013 11:00 AM CDT) [facility] Sodium 139 135 - 145 [...] Ni Agarwal LAB BLOOD ORDERABLES Final R [facility] Performing Organization Address [facility] de Phone Number HISTORICAL RESULTS * Plasma phosphorus (02/10/2013 11:00 AM CDT) Phosphorus, pl 2.9 2.3 - 4.3 mg/dl HISTORICAL RESULTS Plasma 02/10/2013 11:0 0 AM CDT Ni Agarwal LAB BLOOD ORDERABLES Final R [facility] Performing Organization Address [facility] de Phone Number HISTORICAL RESULTS * Serum magnesium (02/10/2013 11:00 AM CDT) Magnesium 1.5 1.4 - 2.5 mg/dl HISTORICAL RESULTS Serum 02/10/2013 11:0 0 AM CDT Ni Agarwal LAB BLOOD ORDERABLES Final R [facility] Performing Organization Address [facility] de Phone Number HISTORICAL RESULTS [...] ORDERABLES F inal Result Performing Organization Address [facility] Phone Number HISTORICAL RESULTS * Blood glucose, POC (02/10/2013 8:08 AM CDT) Glucose, POC, bld 68 65 - 199 mg/dl HISTORICAL RESULTS Gluc, com 1, bld RN Notified HISTORICAL RESULTS Blood specimen (specimen) 02/10/2013 8:08 AM CDT Silva Taylor MD LAB BLOOD ORDERABLES F inal Result Performing Organization Address [facility] Phone Number HISTORICAL RESULTS * (ABNORMAL) Blood glucose, POC (02/10/2013 1:47 AM CDT) Glucose, POC, bld 350(H) 65 - 199 mg/dl HISTORICAL RESULTS Blood specimen (specimen) 02/10/2013 1:47 AM CDT Silva Taylor MD LAB BLOOD ORDERABLES F inal Result Performing Organization Address [facility] Phone Number HISTORICAL RESULTS * (ABNORMAL) Blood glucose, POC (02/09/2013 8:02 PM CDT) Glucose, POC, bld 326(H) 65 - 199 mg/dl HISTORICAL RESULTS Blood specimen (specimen) 02/09/2013 8:02 PM CDT Silva Taylor MD LAB BLOOD ORDERABLES F inal Result Performing Organization Address [facility] de Phone Number HISTORICAL RESULTS * (ABNORMAL) Blood glucose, POC (02/09/2013 2:07 PM CDT) Glucose, POC, bld 360(H) 65 - 199 mg/dl HISTORICAL RESULTS Blood specimen (specimen) 02/09/2013 2:07 PM CDT Silva Taylor MD LAB BLOOD ORDERABLES F inal Result Performing Organization Address [facility] Co de Phone Number HISTORICAL RESULTS * Blood tacrolimus (FK-506) drug level (02/09/2013 10:00 AM CDT) Tacrolimus 2.5 ng/ml HISTORICA L RESULTS Comment: Interpretive Data This test was developed using an analyte specific reagent. ??Its performance characteristics were determined by the [facility] in a manner consistent with CLIA requirements. This test has not been cleared or approved by the U.S. Food and Drug Administration. Current interpretive data was last revised on 2012. Blood specimen (specimen) 02/09/2013 10:00 AM CDT Raman Loepz LAB BLOOD ORDERABLES Fin al Result Performing Organization Address [facility] de Phone Number HISTORICAL RESULTS [...] ORDERABLES Final R esult Performing Organization Address [facility] Co de Phone Number HISTORICAL RESULTS * (ABNORMAL) Plasma phosphorus (02/09/2013 10:00 AM CDT) Phosphorus, pl 1.9(L) 2.3 - 4.3 mg/dl HISTORICAL RESULTS Plasma 02/09/2013 10:0 0 AM CDT Ni Agarwal LAB BLOOD ORDERABLES Final R [facility] Performing Organization Address [facility] de Phone Number HISTORICAL RESULTS * Serum magnesium (02/09/2013 10:00 AM CDT) Magnesium 1.6 1.4 - 2.5 mg/dl HISTORICAL RESULTS Serum 02/09/2013 10:0 0 AM CDT Ni Agarwal LAB BLOOD ORDERABLES Final [facility] Performing Organization Address [facility] de Phone Number HISTORICAL RESULTS * [...] Ni Agarwal LAB BLOOD ORDERABLES Final R [facility] Performing Organization Address [facility] de Phone Number HISTORICAL RESULTS [...] stippling 3-7/HPF(A ) None Seen HISTORICAL RESULTS [place] bodies Present(A ) None Seen HISTORICAL RESULTS [...] ORDERABLES Final R esult Performing Organization Address [facility] Co de Phone Number HISTORICAL RESULTS * (ABNORMAL) Blood glucose, POC (02/09/2013 7:58 AM CDT) Glucose, POC, bld 251(H) 65 - 199 mg/dl HISTORICAL RESULTS Blood specimen (specimen) 02/09/2013 7:58 AM CDT Silva Taylor MD LAB BLOOD ORDERABLES F inal Result Performing Organization Address [facility] Co de Phone Number HISTORICAL RESULTS * (ABNORMAL) Blood glucose, POC (02/09/2013 2:27 AM CDT) Glucose, POC, bld 326(H) 65 - 199 mg/dl HISTORICAL RESULTS Blood specimen (specimen) 02/09/2013 2:27 AM CDT Silva Taylor MD LAB BLOOD ORDERABLES F inal Result Performing Organization Address [facility] de Phone Number HISTORICAL RESULTS * (ABNORMAL) Blood glucose, POC (02/08/2013 8:07 PM CDT) [facility] Glucose, POC, bld >450(C) 65 - 199 mg/dl HISTORICAL RESULTS Blood specimen (specimen) 02/08/2013 8:07 PM CDT Silva Taylor MD LAB BLOOD ORDERABLES F inal Result Performing Organization Address [facility] de Phone Number HISTORICAL RESULTS * (ABNORMAL) Blood glucose, POC (02/08/2013 2:28 PM CDT) [facility] Glucose, POC, bld >450(C) 65 - 199 mg/dl HISTORICAL RESULTS Gluc, com 1, bld Notified HISTORICAL RESULTS Gluc, com 2, bld RN Notified HISTORICAL RESULTS Blood specimen (specimen) 02/08/2013 2:28 PM CDT Silva Taylor MD LAB BLOOD ORDERABLES F inal Result Performing Organization Address [facility] de Phone Number HISTORICAL RESULTS * (ABNORMAL) Plasma comprehensive metabolic panel (02/08/2013 11:00 AM CDT) [facility] Sodium 139 135 - 145 [...] Plasma 02/08/2013 11:0 0 AM CDT Result [facility] Ni Agarwal LAB BLOOD ORDERABLES Final R [facility] Performing Organization Address [facility] de Phone Number HISTORICAL RESULTS * (ABNORMAL) Serum lactate dehydrogenase (LDH) (02/08/2013 11:00 AM CDT) Lactate dehydrogenase (LDH) 371(H) 100 - 250 Units/L HISTORICAL RESULTS Serum 02/08/2013 11:0 0 AM CDT Result [facility] Ni Agarwal LAB BLOOD ORDERABLES Final R [facility] Performing Organization Address [facility] Phone Number HISTORICAL RESULTS * Plasma partial thromboplastin time (PTT) (02/08/2013 11:00 AM CDT) APTT 30.9 25.0 - 37.0 seconds HISTORICAL RESULTS Comment: Interpretive Data Therapeutic heparin range:60.0 - 94.0 sec based on correlation with therapeutic heparin activity range of 0.3 -0.7 Units/mL. Current interpretive data was last revised on 2011. Plasma 02/08/2013 11:0 0 AM CDT Result [facility] Ni Agarwal LAB BLOOD ORDERABLES Final R [facility] Performing Organization Address [facility] Phone Number HISTORICAL RESULTS * (ABNORMAL) Plasma phosphorus (02/08/2013 11:00 AM CDT) Phosphorus, pl 1.5(L) 2.3 - 4.3 mg/dl HISTORICAL RESULTS Plasma 02/08/2013 11:0 0 AM CDT Result [facility] Ni Agarwal LAB BLOOD ORDERABLES Final R [facility] Performing Organization Address [facility] de Phone Number HISTORICAL RESULTS [...] Tool Book at [email or web address] Current Interpretive Data was last revised 2012. Plasma 02/08/2013 11:0 0 AM CDT Ni Agarwal LAB BLOOD ORDERABLES Final R [facility] Performing Organization Address [facility] de Phone Number HISTORICAL RESULTS * Serum uric acid (02/08/2013 11:00 AM CDT) Uric acid 3.5 3.0 - 8.0 mg/dl HISTORICAL RESULTS Serum 02/08/2013 11:0 0 AM CDT Ni Agarwal LAB BLOOD ORDERABLES Final R [facility] Performing Organization Address [facility] Co de Phone Number HISTORICAL RESULTS * Serum magnesium (02/08/2013 11:00 AM CDT) Magnesium 2.2 1.4 - 2.5 mg/dl HISTORICAL RESULTS Serum 02/08/2013 11:0 0 AM CDT Ni Agarwal LAB BLOOD ORDERABLES Final R esult Performing Organization Address [facility] de Phone Number HISTORICAL RESULTS [...] ORDERABLES Final R esult Performing Organization Address [facility] de Phone Number HISTORICAL RESULTS * Blood ABO, Rh, indirect ab screen (02/08/2013 11:00 AM CDT) Ursula, indirect Negative HISTORICAL RESULTS ABO, Rho(D) A Positive HISTORI RHODA RESULTS Blood specimen (specimen) 02/08/2013 11:00 AM CDT Ni Agarwal LAB BLOOD ORDERABLES Final R esult Performing Organization Address [facility] Co de Phone Number HISTORICAL RESULTS * [...] ORDERABLES Final R esult Performing Organization Address [facility] Co de Phone Number HISTORICAL RESULTS * (ABNORMAL) Blood glucose, POC (02/08/2013 7:51 AM CDT) Glucose, POC, bld 273(H) 65 - 199 mg/dl HISTORICAL RESULTS Gluc, com 1, bld RN Notified HISTORICAL RESULTS Blood specimen (specimen) 02/08/2013 7:51 AM CDT Silva Taylor MD LAB BLOOD ORDERABLES F inal Result Performing Organization Address [facility] de Phone Number HISTORICAL RESULTS * (ABNORMAL) Blood glucose, POC (02/08/2013 3:23 AM CDT) Glucose, POC, bld 422(H) 65 - 199 mg/dl HISTORICAL RESULTS Blood specimen (specimen) 02/08/2013 3:23 AM CDT Silva Taylor MD LAB BLOOD ORDERABLES F inal Result Performing Organization Address [facility] Co de Phone Number HISTORICAL RESULTS * (ABNORMAL) Blood glucose, POC (02/07/2013 7:45 PM CDT) Glucose, POC, bld 383(H) 65 - 199 mg/dl HISTORICAL RESULTS Blood specimen (specimen) 02/07/2013 7:45 PM CDT Silva Taylor MD LAB BLOOD ORDERABLES F inal Result Performing Organization Address [facility] de Phone Number HISTORICAL RESULTS [...] ORDERABLES Final R esult Performing Organization Address [facility] de Phone Number HISTORICAL RESULTS * (ABNORMAL) Plasma phosphorus (02/07/2013 5:00 PM CDT) Phosphorus, pl 2.2(L) 2.3 - 4.3 mg/dl HISTORICAL RESULTS Plasma 02/07/2013 5:00 PM CDT Ni Agarwal LAB BLOOD ORDERABLES Final R esult Performing Organization Address [facility] de Phone Number HISTORICAL RESULTS * Serum magnesium (02/07/2013 5:00 PM CDT) Magnesium 1.5 1.4 - 2.5 mg/dl HISTORICAL RESULTS Serum 02/07/2013 5:00 PM CDT Ni Agarwal LAB BLOOD ORDERABLES Final R esult Performing Organization Address [facility] de Phone Number HISTORICAL RESULTS [...] Ni Agarwal LAB BLOOD ORDERABLES Final R [employer] Performing Organization Address [facility] de Phone Number HISTORICAL RESULTS [...] M.D. FINAL REPORT ACC# ??Date Time ??Exam [id number] Feb 07, 2013 12:34:00 93457 Chest 1 view Frontal EXAMINATION: ?? CHEST, [...] - 03/22/2017 DAYSI EDMONDS M.D. FINAL REPORT [facility]# Date Time Exam [id number] Feb 07, 2013 12:34:00 54500 Chest 1 view Frontal EXAMINATION: CHEST, FRONTAL [...] Blood glucose, POC (02/07/2013 11:32 AM CDT) [facility] Glucose, POC, bld >450(C) 65 - [...] ORDERABLES F inal Result Performing Organization Address [facility] de Phone Number HISTORICAL RESULTS * (ABNORMAL) Blood glucose, POC (02/07/2013 1:53 AM CDT) Glucose, POC, bld 302(H) 65 - 199 mg/dl HISTORICAL RESULTS Blood specimen (specimen) 02/07/2013 1:53 AM CDT Silva Taylor MD LAB BLOOD ORDERABLES F inal Result Performing Organization Address [facility] Phone Number HISTORICAL RESULTS * (ABNORMAL) Blood glucose, POC (02/06/2013 7:35 PM CDT) Pathologist [facility] Glucose, POC, bld 340(H) 65 - 199 mg/dl HISTORICAL RESULTS Blood specimen (specimen) 02/06/2013 7:35 PM CDT Silva Taylor MD LAB BLOOD ORDERABLES F inal Result Performing Organization Address [facility] de Phone Number HISTORICAL RESULTS * (ABNORMAL) Blood glucose, POC (02/06/2013 4:43 PM CDT) Pathologist [facility] Glucose, POC, bld 403(H) 65 - 199 mg/dl HISTORICAL RESULTS Gluc, com 1, bld RN Notified HISTORICAL RESULTS Gluc, com 2, bld Venous HISTORICAL RESULTS Blood specimen (specimen) 02/06/2013 4:43 PM CDT Silva Taylor MD LAB BLOOD ORDERABLES F inal Result Performing Organization Address [facility] de Phone Number HISTORICAL RESULTS * ABDOMINAL [...] agrees with it. ACC# ??Date Time ??Exam [id number] Feb 06, 2013 14:39:00 [id number] Abdomen single view AP EXAMINATION: ?? Abdomen [...] agrees with it. ACC# Date Time Exam [id number] Feb 06, 2013 14:39:00 [id number] Abdomen single view AP EXAMINATION: Abdomen single [...] ORDERABLES F inal Result Performing Organization Address [facility] de Phone Number HISTORICAL RESULTS * Blood tacrolimus ([id number]), trough drug level (02/06/2013 9:00 AM CDT) Tacrolimus, trough 2.2 ng/ml H ISTORICAL RESULTS Comment: Interpretive Data This test was developed using an analyte specific reagent. ??Its performance characteristics were determined by the [facility] in a manner consistent with CLIA requirements. This test has not been cleared or approved by the U.S. Food and Drug Administration. Current interpretive data was last revised on 2012. Blood specimen (specimen) 02/06/2013 9:00 AM CDT Derrick Dominguez MD LAB BLOOD ORDERABLES Pilar l Result Performing Organization Address City/[facility] Co de Phone Number HISTORICAL RESULTS * [...] ORDERABLES Pilar l Result Performing Organization Address [facility] Phone Number HISTORICAL RESULTS * (ABNORMAL) Plasma phosphorus (02/06/2013 9:00 AM CDT) Phosphorus, pl 1.8(L) 2.3 - 4.3 mg/dl HISTORICAL RESULTS Plasma 02/06/2013 9:00 AM CDT Derrick Dominguez MD LAB BLOOD ORDERABLES Pilar l Result Performing Organization Address [facility] Phone Number HISTORICAL RESULTS * Serum magnesium (02/06/2013 9:00 AM CDT) Magnesium 1.6 1.4 - 2.5 mg/dl HISTORICAL RESULTS Serum 02/06/2013 9:00 AM CDT Derrick Dominguez MD LAB BLOOD ORDERABLES Pilar l Result Performing Organization Address [facility] de Phone Number HISTORICAL RESULTS [...] ORDERABLES Pilar l Result Performing Organization Address [facility] de Phone Number HISTORICAL RESULTS [...] Platelet estimate Decreased (A) Adequate HISTORICAL RESULTS [place] bodies Present(A ) None Seen HISTORICAL RESULTS Macrocytosis 3-7/HPF(A ) None Seen HISTORICAL RESULTS Microcytosis 3-7/HPF(A ) None Seen HISTORICAL RESULTS Polychromasia 3-7/HPF(A ) None Seen HISTORICAL RESULTS Blood specimen (specimen) 02/06/2013 9:00 AM CDT Derrick Dominguez MD LAB BLOOD ORDERABLES Pilar l Result Performing Organization Address [facility] de Phone Number HISTORICAL RESULTS * (ABNORMAL) Blood glucose, POC (02/06/2013 7:36 AM CDT) Glucose, POC, bld 283(H) 65 - 199 mg/dl HISTORICAL RESULTS Gluc, com 1, bld RN Notified HISTORICAL RESULTS Gluc, com 2, bld Venous HISTORICAL RESULTS Blood specimen (specimen) 02/06/2013 7:36 AM CDT Silva Taylor MD LAB BLOOD ORDERABLES F inal Result Performing Organization Address [facility] de Phone Number HISTORICAL RESULTS * (ABNORMAL) Blood glucose, POC (02/06/2013 6:03 AM CDT) Glucose, POC, bld 350(H) 65 - 199 mg/dl HISTORICAL RESULTS Blood specimen (specimen) 02/06/2013 6:03 AM CDT Silva Taylor MD LAB BLOOD ORDERABLES F inal Result Performing Organization Address [facility] de Phone Number HISTORICAL RESULTS * (ABNORMAL) Blood glucose, POC (02/05/2013 11:41 PM CDT) Pathologist [facility] Glucose, POC, bld 358(H) 65 - 199 mg/dl HISTORICAL RESULTS Blood specimen (specimen) 02/05/2013 11:41 PM CDT Silva Taylor MD LAB BLOOD ORDERABLES F inal Result Performing Organization Address [facility] de Phone Number HISTORICAL RESULTS * (ABNORMAL) Blood glucose, POC (02/05/2013 6:12 PM CDT) Pathologist [facility] Glucose, POC, bld >450(C) 65 - 199 mg/dl HISTORICAL RESULTS Gluc, com 1, bld RN Notified HISTORICAL RESULTS Blood specimen (specimen) 02/05/2013 6:12 PM CDT Silva Taylor MD LAB BLOOD ORDERABLES F inal Result Performing Organization Address [facility] de Phone Number HISTORICAL RESULTS * (ABNORMAL) Blood glucose, POC (02/05/2013 1:05 PM CDT) Glucose, POC, bld 429(H) 65 - 199 mg/dl HISTORICAL RESULTS Gluc, com 1, bld RN Notified HISTORICAL RESULTS Blood specimen (specimen) 02/05/2013 1:05 PM CDT Silva Taylor MD LAB BLOOD ORDERABLES F inal Result Performing Organization Address [facility] de Phone Number HISTORICAL RESULTS * (ABNORMAL) Blood glucose, POC (02/05/2013 11:38 AM CDT) [facility] Glucose, POC, bld >450(C) 65 - 199 mg/dl HISTORICAL RESULTS Gluc, com 1, bld RN Notified HISTORICAL RESULTS Blood specimen (specimen) 02/05/2013 11:38 AM CDT Silva Taylor MD LAB BLOOD ORDERABLES F inal Result Performing Organization Address [facility] de Phone Number HISTORICAL RESULTS * (ABNORMAL) Plasma basic metabolic panel (02/05/2013 11:00 AM CDT) [facility] A. gap 4 0 - 16 [...] ORDERABLES Final R esult Performing Organization Address [facility] de Phone Number HISTORICAL RESULTS * (ABNORMAL) Plasma phosphorus (02/05/2013 11:00 AM CDT) [facility] Phosphorus, pl 1.7(L) 2.3 - 4.3 mg/dl HISTORICAL RESULTS Plasma 02/05/2013 11:0 0 AM CDT Ni Agarwal LAB BLOOD ORDERABLES Final R esult Performing Organization Address [facility] de Phone Number HISTORICAL RESULTS * Serum magnesium (02/05/2013 11:00 AM CDT) Pathologist [facility] Magnesium 1.6 1.4 - 2.5 mg/dl HISTORICAL RESULTS Serum 02/05/2013 11:0 0 AM CDT Ni Agarwal LAB BLOOD ORDERABLES Final [facility] Performing Organization Address [facility] de Phone Number HISTORICAL RESULTS [...] CDT Ni Agarwal LAB BLOOD ORDERABLES Final [facility] Performing Organization Address [facility] de Phone Number HISTORICAL RESULTS [...] specimen (specimen) 02/05/2013 11:00 AM CDT Result [facility] Ni Agarwal LAB BLOOD ORDERABLES Final R esult HISTORICAL RESULTS * (ABNORMAL) Blood glucose, POC (02/05/2013 5:42 AM CDT) Glucose, POC, bld 253(H) 65 - 199 mg/dl HISTORICAL RESULTS Blood specimen (specimen) 02/05/2013 5:42 AM CDT Result [facility] Silva Taylor MD LAB BLOOD ORDERABLES F inal Result Performing Organization Address [facility]/ZIP Co de Phone Number HISTORICAL RESULTS * ELECTROCARDIOGRAPHY (ECG) (02/05/2013) Narrative 02/05/2013 Ordered by an unspecified provider. Result [facility] Historical Provider ECG ORDERABLES Final Res ult * ELECTROCARDIOGRAPHY (ECG) (02/05/2013) Narrative 02/05/2013 Ordered by an unspecified provider. Result [facility] Historical Provider ECG ORDERABLES Final Res ult * (ABNORMAL) Blood glucose, POC (02/04/2013 11:57 PM CDT) Glucose, POC, bld 214(H) 65 - 199 mg/dl HISTORICAL RESULTS Blood specimen (specimen) 02/04/2013 11:57 PM CDT Result [facility] Silva Taylor MD LAB BLOOD ORDERABLES F [...] agrees with it. ACC# ??Date Time ??Exam [id number] Feb 04, 2013 17:44:00 [id number] Ins VenaCava Filter wImage EXAMINATION: ?INFERIOR VENA [...] was obtained. Prior to beginning the procedure, [place] Protocol was performed to confirm the patient's [...] order to schedule filter removal please call [phone]. ??This filter can also be left in [...] agrees with it. ACC# Date Time Exam [id number] Feb 04, 2013 17:44:00 97264 Ins VenaCava Filter wImage EXAMINATION: INFERIOR VENA [...] was obtained. Prior to beginning the procedure, [place] Protocol was performed to confirm the patient's [...] order to schedule filter removal please call [phone]. This filter can also be left in [...] ORDERABLES F inal Result Performing Organization Address [facility]/ZIP Co de Phone Number HISTORICAL RESULTS * [...] ORDERABLES Final R esult Performing Organization Address [facility] Co de Phone Number HISTORICAL RESULTS * [...] Ni Agarwal LAB BLOOD ORDERABLES Final R [facility] Performing Organization Address [facility] Phone Number HISTORICAL RESULTS * Serum uric acid (02/04/2013 12:00 PM CDT) Uric acid 5.3 3.0 - 8.0 mg/dl HISTORICAL RESULTS Serum 02/04/2013 12:0 0 PM CDT Ni Agarwal LAB BLOOD ORDERABLES Final R [facility] Performing Organization Address [facility] de Phone Number HISTORICAL RESULTS * Serum magnesium (02/04/2013 12:00 PM CDT) Pathologist [facility] Magnesium 2.0 1.4 - 2.5 mg/dl HISTORICAL RESULTS Serum 02/04/2013 12:0 0 PM CDT Ni Agarwal LAB BLOOD ORDERABLES Final R [facility] Performing Organization Address [facility] de Phone Number HISTORICAL RESULTS [...] Ni Agarwal LAB BLOOD ORDERABLES Final R [employer] Performing Organization Address [facility] de Phone Number HISTORICAL RESULTS * Blood ABO, Rh, indirect ab screen (02/04/2013 12:00 PM CDT) ABO, Rho(D) A Positive HISTORI RHODA RESULTS Ursula, indirect Negative HISTORICAL RESULTS Blood specimen (specimen) 02/04/2013 12:00 PM CDT Ni Agarwal LAB BLOOD ORDERABLES Final R [employer] Performing Organization Address [facility] de Phone Number HISTORICAL RESULTS * [...] ORDERABLES Final R esult Performing Organization Address [facility] de Phone Number HISTORICAL RESULTS * [place] [...] agrees with it. ACC# ??Date Time ??Exam [id number] Feb 04, 2013 11:45:00 75634 Long GI tube [id number] Feb 04, 2013 11:45:00 95617 Intro GI tube EXAMINATION: ?Feeding tube placement [...] agrees with it. ACC# Date Time Exam [id number] Feb 04, 2013 11:45:00 83394 Long GI tube [id number] Feb 04, 2013 11:45:00 16241 Intro GI tube EXAMINATION: Feeding tube placement [...] agrees with it. ACC# ??Date Time ??Exam [id number] Feb 04, 2013 11:45:00 61500 Long GI tube [id number] Feb 04, 2013 11:45:00 62116 Intro GI tube EXAMINATION: ?Feeding tube placement [...] agrees with it. ACC# Date Time Exam [id number] Feb 04, 2013 11:45:00 70109 Long GI tube [id number] Feb 04, 2013 11:45:00 73546 Intro GI tube EXAMINATION: Feeding tube placement [...] ORDERABLES F inal Result Performing Organization Address [facility] Co de Phone Number HISTORICAL RESULTS * Blood glucose, POC (02/03/2013 11:49 PM CDT) Glucose, POC, bld 169 65 - 199 mg/dl HISTORICAL RESULTS Blood specimen (specimen) 02/03/2013 11:49 PM CDT Silva Taylor MD LAB BLOOD ORDERABLES F inal Result Performing Organization Address [facility] de Phone Number HISTORICAL RESULTS * Blood glucose, POC (02/03/2013 6:11 PM CDT) Glucose, POC, bld 196 65 - 199 mg/dl HISTORICAL RESULTS Blood specimen (specimen) 02/03/2013 6:11 PM CDT Silva Taylor MD LAB BLOOD ORDERABLES F inal Result Performing Organization Address [facility] de Phone Number HISTORICAL RESULTS * CT Chest W Contrast (02/03/2013 2:17 PM CDT) Anatomical Region Laterality Modality Body N/A Computed Tomogra phy 02/03/2013 2:17 PM CDT Narrative 02/03/2013 3:36 PM CDT CRUZ GUO M.D. [facility] ASTORGA, FINAL REPORT The radiology attending physician has personally reviewed this study, and has reviewed and/or edited this written report and agrees with it. ACC# ??Date Time ??Exam [id number] Feb 03, 2013 14:17:[address] Chest with contrast EXAMINATION: ?CT of [...] agrees with it. ACC# Date Time Exam [id number] Feb 03, 2013 14:17:[address] Chest with contrast EXAMINATION: CT of [...] metabolic panel (02/03/2013 12:15 PM CDT) Pathologist [facility] Sodium 136 135 - 145 mmol/L HISTORICAL [...] ORDERABLES Final Resul t Performing Organization Address [facility] Co de Phone Number HISTORICAL RESULTS * (ABNORMAL) Blood glucose, POC (02/03/2013 11:48 AM CDT) Pathologist [facility] Glucose, POC, bld 224(H) 65 - 199 [...] ORDERABLES Final R esult Performing Organization Address [facility] de Phone Number HISTORICAL RESULTS * Plasma phosphorus (02/03/2013 11:00 AM CDT) Phosphorus, pl 2.3 2.3 - 4.3 mg/dl HISTORICAL RESULTS Plasma 02/03/2013 11:0 0 AM CDT Ni Agarwal LAB BLOOD ORDERABLES Final R [facility] Performing Organization Address [facility] Co de Phone Number HISTORICAL RESULTS * Critical result call back (02/03/2013 11:00 AM CDT) Date notified 02/03/2013 HISTO RICAL RESULTS Time notified [id number] HISTOR ICAL RESULTS Test name Glucose HISTORICAL RESULTS Called to Pepper Herr HISTORICAL RESULTS Credentials RN HISTORIC AL RESULTS Called by Waqar HISTORICAL RESULTS No specimen 02/03/2013 11:0 0 AM CDT Ni Agarwal LAB BLOOD ORDERABLES [facility] Performing Organization Address [facility] Co de Phone Number HISTORICAL RESULTS * (ABNORMAL) Serum magnesium (02/03/2013 11:00 AM CDT) Magnesium 1.3(L) 1.4 - 2.5 mg/dl HISTORICAL RESULTS Serum 02/03/2013 11:0 0 AM CDT Ni Agarwal LAB BLOOD ORDERABLES Final [facility] Performing Organization Address [facility] de Phone Number HISTORICAL RESULTS [...] Ni Agarwal LAB BLOOD ORDERABLES Final R [facility] Performing Organization Address [facility] de Phone Number HISTORICAL RESULTS [...] ORDERABLES Final R esult Performing Organization Address [facility] Co de Phone Number HISTORICAL RESULTS * Blood glucose, POC (02/03/2013 5:56 AM CDT) Glucose, POC, bld 116 65 - 199 mg/dl HISTORICAL RESULTS Blood specimen (specimen) 02/03/2013 5:56 AM CDT Silva Taylor MD LAB BLOOD ORDERABLES F inal Result Performing Organization Address [facility] Co de Phone Number HISTORICAL RESULTS * [...] F inal Result Performing Organization Address [facility] Co de Phone Number HISTORICAL RESULTS * (ABNORMAL) Blood glucose, POC (02/02/2013 7:59 PM CDT) Glucose, POC, bld 212(H) 65 - 199 mg/dl HISTORICAL RESULTS Blood specimen (specimen) 02/02/2013 7:59 PM CDT Silva Taylor MD LAB BLOOD ORDERABLES F inal Result Performing Organization Address [facility] Co de Phone Number HISTORICAL RESULTS * [...] M.D. FINAL REPORT ACC# ??Date Time ??Exam [id number] Feb 02, 2013 14:08:[address] Abd & Pelvis with cont EXAMINATION: [...] M.D. FINAL REPORT ACC# Date Time Exam [id number] Feb 02, 2013 14:08:[address] Abd & Pelvis with cont EXAMINATION: [...] ORDERABLES F inal Result Performing Organization Address [facility] Co de Phone Number HISTORICAL RESULTS * [...] ORDERABLES Final R esult Performing Organization Address [facility] Co de Phone Number HISTORICAL RESULTS * (ABNORMAL) Plasma phosphorus (02/02/2013 10:40 AM CDT) Phosphorus, pl 1.9(L) 2.3 - 4.3 mg/dl HISTORICAL RESULTS Plasma 02/02/2013 10:4 0 AM CDT Ni Agarwal LAB BLOOD ORDERABLES Final R esult Performing Organization Address City/State/[facility] Co de Phone Number HISTORICAL RESULTS * Serum magnesium (02/02/2013 10:40 AM CDT) Pathologist [facility] Magnesium 1.9 1.4 - 2.5 mg/dl HISTORICAL RESULTS Serum 02/02/2013 10:4 0 AM CDT Ni Agarwal LAB BLOOD ORDERABLES Final [facility] Performing Organization Address [facility] de Phone Number HISTORICAL RESULTS * (ABNORMAL) Blood cell count (CBC) (02/02/2013 10:40 AM CDT) Pathologist [facility] WBC 13.4(H) 3.8 - 9.8 K/cumm HISTORICAL [...] Ni Agarwal LAB BLOOD ORDERABLES Final R [facility] Performing Organization Address [facility] de Phone Number HISTORICAL RESULTS * (ABNORMAL) Blood cell morphologic exam (02/02/2013 10:40 AM CDT) Pathologist [facility] WBC counted 100 # of cells HISTORI [...] ORDERABLES Final R esult Performing Organization Address [facility] Co de Phone Number HISTORICAL RESULTS * Blood glucose, POC (02/02/2013 9:49 AM CDT) Glucose, POC, bld 193 65 - 199 mg/dl HISTORICAL RESULTS Blood specimen (specimen) 02/02/2013 9:49 AM CDT Silva Taylor MD LAB BLOOD ORDERABLES F inal Result Performing Organization Address [facility] de Phone Number HISTORICAL RESULTS * (ABNORMAL) Blood glucose, POC (02/02/2013 6:25 AM CDT) Glucose, POC, bld 232(H) 65 - 199 mg/dl HISTORICAL RESULTS Gluc, com 1, bld RN Notified HISTORICAL RESULTS Blood specimen (specimen) 02/02/2013 6:25 AM CDT Silva Taylor MD LAB BLOOD ORDERABLES F inal Result Performing Organization Address [facility] de Phone Number HISTORICAL RESULTS * Blood tacrolimus (FK-506) drug level (02/02/2013 6:00 AM CDT) Tacrolimus 3.8 ng/ml HISTORICA L RESULTS Comment: Interpretive Data This test was developed using an analyte specific reagent. ??Its performance characteristics were determined by the [facility] in a manner consistent with CLIA requirements. This test has not been cleared or approved by the U.S. Food and Drug Administration. Current interpretive data was last revised on 2012. Blood specimen (specimen) 02/02/2013 6:00 AM CDT Ni Agarwal LAB BLOOD ORDERABLES Final R esult Performing Organization Address [facility] Co de Phone Number HISTORICAL RESULTS * (ABNORMAL) Blood glucose, POC (02/01/2013 11:43 PM CDT) Glucose, POC, bld 275(H) 65 - 199 mg/dl HISTORICAL RESULTS Gluc, com 1, bld RN Notified HISTORICAL RESULTS Blood specimen (specimen) 02/01/2013 11:43 PM CDT Result [facility] Silva Taylor MD LAB BLOOD ORDERABLES F inal Result Performing Organization Address [facility] Co de Phone Number HISTORICAL RESULTS * (ABNORMAL) Blood glucose, POC (02/01/2013 6:00 PM CDT) Glucose, POC, bld 297(H) 65 - 199 mg/dl HISTORICAL RESULTS Gluc, com 1, bld RN Notified HISTORICAL RESULTS Blood specimen (specimen) 02/01/2013 6:00 PM CDT Result [facility] Silva Taylor MD LAB BLOOD ORDERABLES F inal Result Performing Organization Address [facility] Co de Phone Number HISTORICAL RESULTS * [...] human CMV. ??Based on data from the [facility] Laboratory, these primers do not [...] developed and its performance characteristics determined by [facility]. ??It has not been cleared or approved by the U.S. Food and Drug Administration. ?? Current interpretive data was last revised on 2009. Narrative HISTORICAL RESULTS - 02/03/2013 6:05 AM CDT Negative (<200 copies/ml) us Historical Provider LAB MICROBIOLOGY - GENERA L ORDERABLES Final Result Performing Organization Address City/[facility] Co de Phone Number HISTORICAL RESULTS * [...] ORDERABLES Final R esult Performing Organization Address City/[facility]/ZIP Co de Phone Number HISTORICAL RESULTS * (ABNORMAL) Serum lactate dehydrogenase (LDH) (02/01/2013 10:38 AM CDT) Lactate dehydrogenase (LDH) 430(H) 100 - 250 Units/L HISTORICAL RESULTS Serum 02/01/2013 10:3 8 AM CDT Result [facility] Ni Agarwal LAB BLOOD ORDERABLES [facility] Performing Organization Address [facility] de Phone Number HISTORICAL RESULTS * Plasma partial thromboplastin time (PTT) (02/01/2013 10:38 AM CDT) APTT 29.4 25.0 - 37.0 seconds HISTORICAL RESULTS Comment: Interpretive Data Therapeutic heparin range:60.0 - 94.0 sec based on correlation with therapeutic heparin activity range of 0.3 -0.7 Units/mL. Current interpretive data was last revised on 2011. Plasma 02/01/2013 10:3 8 AM CDT Result [facility] Ni Rosswin LAB BLOOD ORDERABLES Final R [facility] Performing Organization Address [facility] de Phone Number HISTORICAL RESULTS * (ABNORMAL) Plasma phosphorus (02/01/2013 10:38 AM CDT) Phosphorus, pl 1.6(L) 2.3 - 4.3 mg/dl HISTORICAL RESULTS Plasma 02/01/2013 10:3 8 AM CDT Result [facility] Ni Rosswin LAB BLOOD ORDERABLES Final R [facility] Performing Organization Address [facility] de Phone Number HISTORICAL RESULTS [...] Tool Book at [email or web address]://[email or web address].nsf Current Interpretive Data was last revised 2012. Plasma 02/01/2013 10:3 8 AM CDT Ni Agarwal LAB BLOOD ORDERABLES Final R [facility] Performing Organization Address [facility] de Phone Number HISTORICAL RESULTS * Serum uric acid (02/01/2013 10:38 AM CDT) Uric acid 3.9 3.0 - 8.0 mg/dl HISTORICAL RESULTS Serum 02/01/2013 10:3 8 AM CDT Result [facility] Ni Agarwal LAB BLOOD ORDERABLES Final R [facility] Performing Organization Address [facility] de Phone Number HISTORICAL RESULTS * (ABNORMAL) Serum magnesium (02/01/2013 10:38 AM CDT) Magnesium 1.2(L) 1.4 - 2.5 mg/dl HISTORICAL RESULTS Serum 02/01/2013 10:3 8 AM CDT Ni Agarwal LAB BLOOD ORDERABLES Final R esult Performing Organization Address [facility] de Phone Number HISTORICAL RESULTS [...] ORDERABLES Final R esult Performing Organization Address [facility] Co de Phone Number HISTORICAL RESULTS * Blood ABO, Rh, indirect ab screen (02/01/2013 10:38 AM CDT) Pathologist [facility] ABO, Rho(D) A Positive HISTORI RHODA RESULTS Ursula, indirect Negative HISTORICAL RESULTS Blood specimen (specimen) 02/01/2013 10:38 AM CDT Ni Agarwal LAB BLOOD ORDERABLES Final R esult Performing Organization Address [facility] Co de Phone Number HISTORICAL RESULTS * [...] ORDERABLES F inal Result Performing Organization Address City/[facility]/ZIP Co de Phone Number HISTORICAL RESULTS * All Microbiology Report Section (02/01/2013 12:00 AM CDT) 02/01/2013 Narrative HISTORICAL RESULTS - 02/16/2013 10:36 AM CDT ? [facility] ?[address] [facility] [address] ?[place], [place] [address] ? Patient Name: ??BRI JONES ? Med Rec Number: [id number] ? Fin Number: ?[id number] ? Date: ?1965 ? Sex/Age: ? Male 47 years ? Admit Date: ?01/22/2013 ? Discharge Date: ? Doctor: ?Josué Del Valle ? Facility: ?[facility] ? Location: ?[id number] 01 ?* Abnormal ??A Alert ??f Footnote [...] ? ORDER COMMENTS ? (1)Testing performed by: [facility], [place], ? [place]. ??[address]. ?* * * ??Interpretive Results ??* * * ? (1)This assay is based on quantitative real-time PCR. ??The primers ? used amplify a conserved 61 bp region of the DNA polymerase gene ? of human CMV. ??Based on data from the [facility] ? [facility], these primers do [...] its performance characteristics determined by . ? [facility]. ??It has not been cleared ? or approved by the U.S. Food and Drug Administration. ??Current ? interpretive data was last revised on 2009. ? Historical Provider LAB MICROBIOLOGY - GENERA L ORDERABLES Final Result Performing Organization Address [facility] de Phone Number HISTORICAL RESULTS * (ABNORMAL) Blood glucose, POC (01/31/2013 11:35 PM CDT) Glucose, POC, bld 269(H) 65 - 199 mg/dl HISTORICAL RESULTS Blood specimen (specimen) 01/31/2013 11:35 PM CDT Silva Taylor MD LAB BLOOD ORDERABLES F inal Result Performing Organization Address [facility] de Phone Number HISTORICAL RESULTS [...] M.D. FINAL REPORT ACC# ??Date Time ??Exam [id number] Jan 31, 2013 14:17:00 [id number] Abdomen single view AP EXAMINATION: ?? SINGLE [...] M.D. FINAL REPORT ACC# Date Time Exam [id number] Jan 31, 2013 14:17:00 [id number] Abdomen single view AP EXAMINATION: SINGLE VIEW [...] Blood glucose, POC (01/31/2013 12:04 PM CDT) [facility] Glucose, POC, bld >450(C) 65 - 199 mg/dl HISTORICAL RESULTS Blood specimen (specimen) 01/31/2013 12:04 PM CDT Silva Taylor MD LAB BLOOD ORDERABLES F inal Result Performing Organization Address [facility] Co de Phone Number HISTORICAL RESULTS * (ABNORMAL) Blood glucose, POC (01/31/2013 11:51 AM CDT) [facility] Glucose, POC, bld >450(C) 65 - 199 mg/dl HISTORICAL RESULTS Gluc, com 1, bld RN Notified HISTORICAL RESULTS Blood specimen (specimen) 01/31/2013 11:51 AM CDT Silva Taylor MD LAB BLOOD ORDERABLES F inal Result Performing Organization Address [facility] Co de Phone Number HISTORICAL RESULTS * (ABNORMAL) Blood cell count (CBC) (01/31/2013 11:00 AM CDT) [facility] WBC 14.5(H) 3.8 - 9.8 K/cumm [...] Ni Agarwal LAB BLOOD ORDERABLES Final R [facility] Performing Organization Address [facility] de Phone Number HISTORICAL RESULTS [...] Echinocytes 3-7/HPF(A ) None Seen HISTORICAL RESULTS [place] bodies Present(A ) None Seen HISTORICAL RESULTS Macrocytosis > 15/HPF(A) None Seen HISTORICAL RESULTS Microcytosis 3-7/HPF(A ) None Seen HISTORICAL RESULTS Pappenheimer bodies Present(A ) None Seen HISTORICAL RESULTS Polychromasia 3-7/HPF(A ) None Seen HISTORICAL RESULTS Teardrop cells 3-7/HPF(A ) None Seen HISTORICAL RESULTS Blood specimen (specimen) 01/31/2013 11:00 AM CDT Ni Agarwal LAB BLOOD ORDERABLES Final [facility] Performing Organization Address [facility] de Phone Number HISTORICAL RESULTS * Blood consistent result (01/31/2013 11:00 AM CDT) Pathologist [facility] Consistent result Consistent with previous results HISTORICAL RESULTS Blood specimen (specimen) 01/31/2013 11:00 AM CDT Ni Rosswin LAB BLOOD ORDERABLES Final R [facility] Performing Organization Address [facility] de Phone Number HISTORICAL RESULTS * (ABNORMAL) Plasma basic metabolic panel (01/31/2013 10:00 AM CDT) Pathologist [facility] Sodium 140 135 - 145 mmol/L HISTORICAL [...] Plasma 01/31/2013 10:0 0 AM CDT Result [facility] Ni Agarwal LAB BLOOD ORDERABLES Final [facility] Performing Organization Address [facility] de Phone Number HISTORICAL RESULTS * (ABNORMAL) Plasma phosphorus (01/31/2013 10:00 AM CDT) Phosphorus, pl 1.1(L) 2.3 - 4.3 mg/dl HISTORICAL RESULTS Plasma 01/31/2013 10:0 0 AM CDT Result [facility] Ni Agarwal LAB BLOOD ORDERABLES Final R [facility] Performing Organization Address [facility] de Phone Number HISTORICAL RESULTS * Serum magnesium (01/31/2013 10:00 AM CDT) Magnesium 1.9 1.4 - 2.5 mg/dl HISTORICAL RESULTS Serum 01/31/2013 10:0 0 AM CDT Result [facility] Ni Agarwal LAB BLOOD ORDERABLES Final [facility] Performing Organization Address [facility] de Phone Number HISTORICAL RESULTS * Serum vancomycin drug level (01/31/2013 10:00 AM CDT) Vancomycin 14.6 mcg/ml HISTORICA L RESULTS Serum 01/31/2013 10:0 0 AM CDT us Ni Agarwal LAB BLOOD ORDERABLES Final R esult Performing Organization Address [facility] de Phone Number HISTORICAL RESULTS * Blood tacrolimus (FK-506) drug level (01/31/2013 10:00 AM CDT) Tacrolimus 8.5 ng/ml HISTORICA L RESULTS Comment: Interpretive Data This test was developed using an analyte specific reagent. ??Its performance characteristics were determined by the [facility] in a manner consistent with CLIA requirements. This test has not been cleared or approved by the U.S. Food and Drug Administration. Current interpretive data was last revised on 2012. Blood specimen (specimen) 01/31/2013 10:00 AM CDT Ni Agarwal LAB BLOOD ORDERABLES Final R esult Performing Organization Address [facility] Co de Phone Number HISTORICAL RESULTS * (ABNORMAL) Blood glucose, POC (01/31/2013 7:43 AM CDT) Glucose, POC, bld 278(H) 65 - 199 mg/dl HISTORICAL RESULTS Blood specimen (specimen) 01/31/2013 7:43 AM CDT Silva Taylor MD LAB BLOOD ORDERABLES F inal Result Performing Organization Address [facility] Co de Phone Number HISTORICAL RESULTS * (ABNORMAL) Blood glucose, POC (01/31/2013 5:57 AM CDT) Glucose, POC, bld 312(H) 65 - 199 mg/dl HISTORICAL RESULTS Blood specimen (specimen) 01/31/2013 5:57 AM CDT Silva Taylor MD LAB BLOOD ORDERABLES F inal Result Performing Organization Address [facility] Co de Phone Number HISTORICAL RESULTS * [...] ORDERABLES F inal Result Performing Organization Address [facility] Co de Phone Number HISTORICAL RESULTS * (ABNORMAL) Blood glucose, POC (01/30/2013 11:55 PM CDT) Glucose, POC, bld >450(C) 65 - 199 mg/dl HISTORICAL RESULTS Gluc, com 1, bld RN Notified HISTORICAL RESULTS Blood specimen (specimen) 01/30/2013 11:55 PM CDT Silva Taylor MD LAB BLOOD ORDERABLES F inal Result Performing Organization Address [facility] Co de Phone Number HISTORICAL RESULTS * [...] ORDERABLES F inal Result Performing Organization Address [facility] de Phone Number HISTORICAL RESULTS * (ABNORMAL) Blood glucose, POC (01/30/2013 2:18 PM CDT) Glucose, POC, bld 357(H) 65 - 199 mg/dl HISTORICAL RESULTS Gluc, com 1, bld RN Notified HISTORICAL RESULTS Blood specimen (specimen) 01/30/2013 2:18 PM CDT Silva Taylor MD LAB BLOOD ORDERABLES F inal Result Performing Organization Address [facility] de Phone Number HISTORICAL RESULTS * (ABNORMAL) Blood glucose, POC (01/30/2013 12:20 PM CDT) Glucose, POC, bld 306(H) 65 - 199 mg/dl HISTORICAL RESULTS Gluc, com 1, bld RN Notified HISTORICAL RESULTS Blood specimen (specimen) 01/30/2013 12:20 PM CDT Silva Taylor MD LAB BLOOD ORDERABLES F inal Result Performing Organization Address [facility] Phone Number HISTORICAL RESULTS * Vancomycin-resistant [...] L ORDERABLES Final Result Performing Organization Address [facility] Co de Phone Number HISTORICAL RESULTS * [...] ORDERABLES F inal Result Performing Organization Address City/[facility] Co de Phone Number HISTORICAL RESULTS * [...] human CMV. ??Based on data from the [facility], these primers do [...] developed and its performance characteristics determined by [facility]. ??It has not been cleared or approved by the U.S. Food and Drug Administration. ?? Current interpretive data was last revised on 2009. Narrative HISTORICAL RESULTS - 01/31/2013 6:58 AM CDT Negative (<200 copies/ml) us Historical Provider LAB MICROBIOLOGY - GENERA L ORDERABLES Final Result Performing Organization Address [facility] de Phone Number HISTORICAL RESULTS * (ABNORMAL) Serum vancomycin, trough drug level (01/30/2013 7:50 AM CDT) [facility] Vancomycin, trough 26.5(C) 10.0 - 20.9 mcg/ml HISTORICAL RESULTS Comment: Interpretive Data Therapeutic Range: ?? Uncomplicated skin and soft tissue infections: 10-20 mcg/mL ?? All other infections: ??15-20 mcg/mL Current interpretive data was last revised on 12. Serum 01/30/2013 7:50 AM CDT Ni GAMA BLOOD ORDERABLES Final R esult Performing Organization Address [facility] Co de Phone Number HISTORICAL RESULTS * [...] Ni Agarwal LAB BLOOD ORDERABLES Final [facility] Performing Organization Address [facility] de Phone Number HISTORICAL RESULTS [...] Ni Agarwal LAB BLOOD ORDERABLES Final R [facility] Performing Organization Address [facility] de Phone Number HISTORICAL RESULTS * (ABNORMAL) Plasma phosphorus (01/30/2013 7:50 AM CDT) Phosphorus, pl 1.9(L) 2.3 - 4.3 mg/dl HISTORICAL RESULTS Plasma 01/30/2013 7:50 AM CDT Ni Agarwal LAB BLOOD ORDERABLES Final [facility] Performing Organization Address [facility] de Phone Number HISTORICAL RESULTS * Serum magnesium (01/30/2013 7:50 AM CDT) Magnesium 1.5 1.4 - 2.5 mg/dl HISTORICAL RESULTS Serum 01/30/2013 7:50 AM CDT Ni Agarwal LAB BLOOD ORDERABLES Final [facility] Performing Organization Address [facility] de Phone Number HISTORICAL RESULTS * (ABNORMAL) Blood cell count (CBC) (01/30/2013 7:50 AM CDT) [facility] WBC 13.0(H) 3.8 - 9.8 K/cumm [...] CDT Ni Agarwal LAB BLOOD ORDERABLES Final [facility] Performing Organization Address [facility] de Phone Number HISTORICAL RESULTS * (ABNORMAL) Blood cell morphologic exam (01/30/2013 7:50 AM CDT) [facility] WBC counted 100 # of cells [...] Echinocytes 3-7/HPF(A ) None Seen HISTORICAL RESULTS [place] bodies Present(A ) None Seen HISTORICAL RESULTS Macrocytosis > 15/HPF(A) None Seen HISTORICAL RESULTS Microcytosis 3-7/HPF(A ) None Seen HISTORICAL RESULTS Polychromasia 3-7/HPF(A ) None Seen HISTORICAL RESULTS Blood specimen (specimen) 01/30/2013 7:50 AM CDT Ni Bansal Agarwal LAB BLOOD ORDERABLES Final R [facility] Performing Organization Address City/[facility] Co de Phone Number HISTORICAL RESULTS * Blood tacrolimus (FK-506) drug level (01/30/2013 6:00 AM CDT) Tacrolimus 13.7 ng/ml HISTORICA L RESULTS Comment: Interpretive Data This test was developed using an analyte specific reagent. ??Its performance characteristics were determined by the [facility] in a manner consistent with CLIA requirements. This test has not been cleared or approved by the U.S. Food and Drug Administration. Current interpretive data was last revised on 2012. Blood specimen (specimen) 01/30/2013 6:00 AM CDT [facility] Final [facility] Performing Organization Address City/[facility] Co de Phone Number HISTORICAL RESULTS * All Microbiology Report Section (01/30/2013 12:00 AM CDT) 01/30/2013 Narrative HISTORICAL RESULTS - 02/02/2013 10:26 AM CDT ? [facility] ?[address] [facility] [address] ?[place], [place] [address] ? Patient Name: ??BRI JONES ? Med Rec Number: [id number] ? Fin Number: ?[id number] ? Date: ?1965 ? Sex/Age: ? Male 47 years ? Admit Date: ?01/22/2013 ? Discharge Date: ? Doctor: ?DiPersio, Josué F ? Facility: ?[facility] ? Location: ?[address] 01 ?* Abnormal ??A Alert ??f Footnote [...] RESULTS - 02/03/2013 6:34 AM CDT ? [facility] ?[address] [facility] [address] ?[place], [place] [address] ? Patient Name: ??BRI JONES ? Med Rec Number: [id number] ? Fin Number: ?[id number] ? Date: ?1965 ? Sex/Age: ? Male 47 years ? Admit Date: ?01/22/2013 ? Discharge Date: ? Doctor: ?DiPersio, Josué F ? Facility: ?[facility] ? Location: ?69[address] 01 ?* Abnormal ??A Alert ??f Footnote [...] ? ORDER COMMENTS ? (1)Testing performed by: [facility], [place], ? [place]. ??[address]. ?* * * ??Interpretive Results ??* * * ? (1)This assay is based on quantitative real-time PCR. ??The primers ? used amplify a conserved 61 bp region of the DNA polymerase gene ? of human CMV. ??Based on data from the [facility] ? [facility]rology Laboratory, these primers do [...] its performance characteristics determined by [facility]. ? [facility]. ??It has not been cleared ? or approved by the U.S. Food and Drug Administration. ??Current ? interpretive data was last revised on 2009. ? us Historical Provider MD LAB MICROBIOLOGY - GENERA L ORDERABLES Final Result HISTORICAL RESULTS * All Microbiology Report Section (01/30/2013 12:00 AM CDT) 01/30/2013 Narrative HISTORICAL RESULTS - 01/31/2013 6:21 AM CDT ? [facility] ?[address] [facility] [address] ?[place], [place] [address] ? Patient Name: ??BRI JONES ? Med Rec Number: [id number] ? Fin Number: ?[id number] ? Date: ?1965 ? Sex/Age: ? Male 47 years ? Admit Date: ?01/22/2013 ? Discharge Date: ? Doctor: ?DiPersio, Josué F ? Facility: ?[facility] ? Location: ?[address]00 [address] 01 ?* Abnormal ??A Alert ??f Footnote [...] L ORDERABLES Final Result Performing Organization Address [facility] de Phone Number HISTORICAL RESULTS * (ABNORMAL) Blood glucose, POC (01/29/2013 9:20 PM CDT) Glucose, POC, bld 342(H) 65 - 199 mg/dl HISTORICAL RESULTS Blood specimen (specimen) 01/29/2013 9:20 PM CDT Silva Taylor MD LAB BLOOD ORDERABLES F inal Result Performing Organization Address [facility] de Phone Number HISTORICAL RESULTS * (ABNORMAL) Blood glucose, POC (01/29/2013 4:40 PM CDT) Glucose, POC, bld 289(H) 65 - 199 mg/dl HISTORICAL RESULTS Gluc, com 1, bld RN Notified HISTORICAL RESULTS Gluc, com 2, bld Venous HISTORICAL RESULTS Blood specimen (specimen) 01/29/2013 4:40 PM CDT Silva Taylor MD LAB BLOOD ORDERABLES F inal Result Performing Organization Address [facility] de Phone Number HISTORICAL RESULTS * Blood glucose, POC (01/29/2013 11:50 AM CDT) Glucose, POC, bld 172 65 - 199 mg/dl HISTORICAL RESULTS Gluc, com 1, bld RN Notified HISTORICAL RESULTS Gluc, com 2, bld Venous HISTORICAL RESULTS Blood specimen (specimen) 01/29/2013 11:50 AM CDT Silva Taylor MD LAB BLOOD ORDERABLES F inal Result Performing Organization Address [facility] Co de Phone Number HISTORICAL RESULTS * [...] ORDERABLES Final R esult Performing Organization Address [facility] de Phone Number HISTORICAL RESULTS * (ABNORMAL) Plasma phosphorus (01/29/2013 11:08 AM CDT) Phosphorus, pl 1.5(L) 2.3 - 4.3 mg/dl HISTORICAL RESULTS Plasma 01/29/2013 11:0 8 AM CDT Ni Agarwal LAB BLOOD ORDERABLES Final R esult Performing Organization Address City/[facility] Co de Phone Number HISTORICAL RESULTS * Serum magnesium (01/29/2013 11:08 AM CDT) Magnesium 1.6 1.4 - 2.5 mg/dl HISTORICAL RESULTS Serum 01/29/2013 11:0 8 AM CDT Ni Agarwal LAB BLOOD ORDERABLES Final R esult Performing Organization Address [facility] Co de Phone Number HISTORICAL RESULTS * [...] specimen (specimen) 01/29/2013 11:00 AM CDT Result [facility] Ni D Agarwal LAB BLOOD ORDERABLES Final R [facility] Performing Organization Address [facility] de Phone Number HISTORICAL RESULTS [...] ORDERABLES Final R esult Performing Organization Address [facility] Co de Phone Number HISTORICAL RESULTS * Blood consistent result (01/29/2013 11:00 AM CDT) Consistent result Consistent with previous results HISTORICAL RESULTS Blood specimen (specimen) 01/29/2013 11:00 AM CDT Ni Agarwal LAB BLOOD ORDERABLES Final R esult Performing Organization Address City/[facility]/ZIP Co de Phone Number HISTORICAL RESULTS * (ABNORMAL) Blood glucose, POC (01/29/2013 7:30 AM CDT) Glucose, POC, bld 316(H) 65 - 199 mg/dl HISTORICAL RESULTS Gluc, com 1, bld RN Notified HISTORICAL RESULTS Gluc, com 2, bld Venous HISTORICAL RESULTS Blood specimen (specimen) 01/29/2013 7:30 AM CDT Silva Taylor MD LAB BLOOD ORDERABLES F inal Result Performing Organization Address [facility] Co de Phone Number HISTORICAL RESULTS * Blood tacrolimus (FK-506) drug level (01/29/2013 6:05 AM CDT) Tacrolimus 19.1 ng/ml HISTORICA L RESULTS Comment: Interpretive Data This test was developed using an analyte specific reagent. ??Its performance characteristics were determined by the [facility] in a manner consistent with CLIA requirements. This test has not been cleared or approved by the U.S. Food and Drug Administration. Current interpretive data was last revised on 2012. Blood specimen (specimen) 01/29/2013 6:05 AM CDT Ni Agarwal LAB BLOOD ORDERABLES Final R esult Performing Organization Address City/[facility]/ZIP Co de Phone Number HISTORICAL RESULTS * Blood glucose, POC (01/28/2013 9:03 PM CDT) Glucose, POC, bld 172 65 - 199 mg/dl HISTORICAL RESULTS Gluc, com 1, bld RN Notified HISTORICAL RESULTS Blood specimen (specimen) 01/28/2013 9:03 PM CDT Silva Taylor MD LAB BLOOD ORDERABLES F inal Result Performing Organization Address [facility] de Phone Number HISTORICAL RESULTS * Blood glucose, POC (01/28/2013 4:42 PM CDT) Glucose, POC, bld 162 65 - 199 mg/dl HISTORICAL RESULTS Blood specimen (specimen) 01/28/2013 4:42 PM CDT Silva Taylor MD LAB BLOOD ORDERABLES F inal Result Performing Organization Address [facility] de Phone Number HISTORICAL RESULTS * (ABNORMAL) Blood glucose, POC (01/28/2013 11:50 AM CDT) Glucose, POC, bld 211(H) 65 - 199 mg/dl HISTORICAL RESULTS Blood specimen (specimen) 01/28/2013 11:50 AM CDT Silva Taylor MD LAB BLOOD ORDERABLES F inal Result Performing Organization Address [facility] de Phone Number HISTORICAL RESULTS * [place] [...] agrees with it. ACC# ??Date Time ??Exam [id number] Jan 28, 2013 11:16:00 [id number] Long GI tube [id number] Jan 28, 2013 11:16:00 99811 Intro GI tube EXAMINATION: ?Nasoenteric Feeding Tube [...] agrees with it. ACC# Date Time Exam [id number] Jan 28, 2013 11:16:00 [id number] Long GI tube [id number] Jan 28, 2013 11:16:00 [id number] Intro GI tube EXAMINATION: Nasoenteric Feeding Tube [...] agrees with it. ACC# ??Date Time ??Exam [id number] Jan 28, 2013 11:16:00 [id number] Long GI tube [id number] Jan 28, 2013 11:16:00 50076 Intro GI tube EXAMINATION: ?Nasoenteric Feeding Tube [...] agrees with it. ACC# Date Time Exam [id number] Jan 28, 2013 11:16:00 [id number] Long GI tube [id number] Jan 28, 2013 11:16:00 [id number] Intro GI tube EXAMINATION: Nasoenteric Feeding Tube [...] glucose, POC (01/28/2013 8:04 AM CDT) Pathologist [facility] Glucose, POC, bld 231(H) 65 - 199 mg/dl HISTORICAL RESULTS Blood specimen (specimen) 01/28/2013 8:04 AM CDT Silva Taylor MD LAB BLOOD ORDERABLES F inal Result HISTORICAL RESULTS * (ABNORMAL) Plasma comprehensive metabolic panel (01/28/2013 5:30 AM CDT) Pathologist [facility] Sodium 139 135 - 145 mmol/L HISTORICAL [...] RESULTS Plasma 01/28/2013 5:30 AM CDT Result [facility] Ni Agarwal LAB BLOOD ORDERABLES Final R esult Performing Organization Address [facility] de Phone Number HISTORICAL RESULTS * (ABNORMAL) Serum lactate dehydrogenase (LDH) (01/28/2013 5:30 AM CDT) Lactate dehydrogenase (LDH) 676(H) 100 - 250 Units/L HISTORICAL RESULTS Serum 01/28/2013 5:30 AM CDT Result [facility] Ni Agarwal LAB BLOOD ORDERABLES Final R [facility] Performing Organization Address [facility] de Phone Number HISTORICAL RESULTS * (ABNORMAL) Plasma phosphorus (01/28/2013 5:30 AM CDT) Phosphorus, pl 1.3(L) 2.3 - 4.3 mg/dl HISTORICAL RESULTS Plasma 01/28/2013 5:30 AM CDT Result [facility] Ni Agarwal LAB BLOOD ORDERABLES Final R [facility] Performing Organization Address [facility] de Phone Number HISTORICAL RESULTS * Serum uric acid (01/28/2013 5:30 AM CDT) Uric acid 6.0 3.0 - 8.0 mg/dl HISTORICAL RESULTS Serum 01/28/2013 5:30 AM CDT us Ni Agarwal LAB BLOOD ORDERABLES Final R [facility] Performing Organization Address [facility] de Phone Number HISTORICAL RESULTS * Serum magnesium (01/28/2013 5:30 AM CDT) Pathologist [facility] Magnesium 1.5 1.4 - 2.5 mg/dl HISTORICAL RESULTS Serum 01/28/2013 5:30 AM CDT Result [facility] Ni Agarwal LAB BLOOD ORDERABLES Final R [facility] Performing Organization Address [facility] de Phone Number HISTORICAL RESULTS * (ABNORMAL) Blood cell count (CBC) (01/28/2013 5:30 AM CDT) Pathologist [facility] WBC 17.9(H) 3.8 - 9.8 K/cumm HISTORICAL [...] specimen (specimen) 01/28/2013 5:30 AM CDT Result [facility] Ni Agarwal LAB BLOOD ORDERABLES Final R [facility] Performing Organization Address [facility] de Phone Number HISTORICAL RESULTS * Blood ABO, Rh, indirect ab screen (01/28/2013 5:30 AM CDT) Pathologist [facility] ABO, Rho(D) A Positive HISTORI RHODA RESULTS Ursula, indirect Negative HISTORICAL RESULTS Blood specimen (specimen) 01/28/2013 5:30 AM CDT Result [facility] Ni Rosswin LAB BLOOD ORDERABLES Final R [facility] Performing Organization Address [facility] de Phone Number HISTORICAL RESULTS [...] Anisocytosis Moderate( A) None Seen HISTORICAL RESULTS [place] bodies Present(A ) None Seen HISTORICAL RESULTS [...] ORDERABLES Final R esult Performing Organization Address [facility] Co de Phone Number HISTORICAL RESULTS * Serum vancomycin, trough drug level (01/28/2013 5:30 AM CDT) Pathologist [facility] Vancomycin, trough 17.6 10.0 - 20.9 mcg/ml HISTORICAL RESULTS Comment: Interpretive Data Therapeutic Range: ?? Uncomplicated skin and soft tissue infections: 10-20 mcg/mL ?? All other infections: ??15-20 mcg/mL Current interpretive data was last revised on 12. Serum 01/28/2013 5:30 AM CDT Sophie Thomas MD PhD LAB BLOOD ORDERABLES Final Result Performing Organization Address [facility] Co de Phone Number HISTORICAL RESULTS * Blood tacrolimus (FK-506), trough drug level (01/28/2013 5:30 AM CDT) Tacrolimus, trough 23.5 ng/ml H ISTORICAL RESULTS Comment: Interpretive Data This test was developed using an analyte specific reagent. ??Its performance characteristics were determined by the [facility] in a manner consistent with [...] agrees with it. ACC# ??Date Time ??Exam [id number] Jan 28, 2013 03:05:00 [id number] Chest 1 view Frontal EXAMINATION: ?? Chest [...] this written report and agrees with it. [facility]# Date Time Exam [id number] Jan 28, 2013 03:05:00 [id number] Chest 1 view Frontal EXAMINATION: Chest One [...] ORDERABLES F inal Result Performing Organization Address [facility] Co de Phone Number HISTORICAL RESULTS * (ABNORMAL) Blood glucose, POC (01/27/2013 5:12 PM CDT) Glucose, POC, bld 222(H) 65 - 199 mg/dl HISTORICAL RESULTS Gluc, com 1, bld RN Notified HISTORICAL RESULTS Blood specimen (specimen) 01/27/2013 5:12 PM CDT Silva Taylor MD LAB BLOOD ORDERABLES F inal Result Performing Organization Address [facility] Co de Phone Number HISTORICAL RESULTS * [...] Ni Agarwal LAB BLOOD ORDERABLES Final R [facility] Performing Organization Address [facility] de Phone Number HISTORICAL RESULTS * (ABNORMAL) Plasma phosphorus (01/27/2013 1:22 PM CDT) Pathologist [facility] Phosphorus, pl 2.2(L) 2.3 - 4.3 mg/dl HISTORICAL RESULTS Plasma 01/27/2013 1:22 PM CDT Ni Agarwal LAB BLOOD ORDERABLES Final R [facility] Performing Organization Address [facility] de Phone Number HISTORICAL RESULTS * Serum magnesium (01/27/2013 1:22 PM CDT) Pathologist [facility] Magnesium 1.7 1.4 - 2.5 mg/dl HISTORICAL RESULTS Serum 01/27/2013 1:22 PM CDT Ni Agarwal LAB BLOOD ORDERABLES Final R [facility] Performing Organization Address [facility] Co de Phone Number HISTORICAL RESULTS * [...] specimen (specimen) 01/27/2013 1:22 PM CDT Result [facility] Ni Agarwal LAB BLOOD ORDERABLES Final R [facility] Performing Organization Address [facility] de Phone Number HISTORICAL RESULTS [...] specimen (specimen) 01/27/2013 1:22 PM CDT Result [facility] Ni Agarwal LAB BLOOD ORDERABLES Final R [facility] Performing Organization Address [facility] de Phone Number HISTORICAL RESULTS * Blood consistent result (01/27/2013 1:22 PM CDT) Consistent result Consistent with previous results HISTORICAL RESULTS Blood specimen (specimen) 01/27/2013 1:22 PM CDT Ni Agarwal LAB BLOOD ORDERABLES Final R [facility] Performing Organization Address [facility] Co de Phone Number HISTORICAL RESULTS * Blood glucose, POC (01/27/2013 12:20 PM CDT) Glucose, POC, bld 182 65 - 199 mg/dl HISTORICAL RESULTS Gluc, com 1, bld RN Notified HISTORICAL RESULTS Blood specimen (specimen) 01/27/2013 12:20 PM CDT Silva Taylor MD LAB BLOOD ORDERABLES F inal Result Performing Organization Address [facility] de Phone Number HISTORICAL RESULTS * (ABNORMAL) Serum vancomycin, trough drug level (01/27/2013 8:44 AM CDT) Pathologist [facility] Vancomycin, trough 21.0(C) 10.0 - 20.9 mcg/ml HISTORICAL RESULTS Comment: Interpretive Data Therapeutic Range: ?? Uncomplicated skin and soft tissue infections: 10-20 mcg/mL ?? All other infections: ??15-20 mcg/mL Current interpretive data was last revised on 12. Serum 01/27/2013 8:44 AM CDT Sophie Thomas MD PhD LAB BLOOD ORDERABLES Final Result Performing Organization Address [facility] de Phone Number HISTORICAL RESULTS * Plasma potassium (01/27/2013 8:44 AM CDT) Pathologist [facility] K, pl 3.7 3.3 - 4.9 mmol/L HISTORICAL RESULTS Plasma 01/27/2013 8:44 AM CDT Sophie Thomas MD PhD LAB BLOOD ORDERABLES Final Result Performing Organization Address [facility] de Phone Number HISTORICAL RESULTS * Critical result call back (01/27/2013 8:44 AM CDT) Pathologist [facility] Date notified 01/27/2013 HISTO RICAL RESULTS Time [...] agrees with it. ACC# ??Date Time ??Exam [id number] Jan 27, 2013 05:23:00 [id number] Chest 1 view Frontal EXAMINATION: ?? Chest [...] this written report and agrees with it. [facility]# Date Time Exam [id number] Jan 27, 2013 05:23:00 [id number] Chest 1 view Frontal EXAMINATION: Chest One [...] M.D. on Jan 27 2013 11:18A Result [facility] Historical Provider IMG XR PROCEDURES Final R esult * ELECTROCARDIOGRAPHY (ECG) (01/27/2013) Narrative 01/27/2013 Ordered by an unspecified provider. Result [facility] Historical Provider ECG ORDERABLES Final Res ult * ELECTROCARDIOGRAPHY (ECG) (01/27/2013) Narrative 01/27/2013 Ordered by an unspecified provider. Result [facility] Provider ECG ORDERABLES Final Res ult * [...] ORDERABLES F inal Result Performing Organization Address [facility] Co de Phone Number HISTORICAL RESULTS * (ABNORMAL) Blood glucose, POC (01/26/2013 11:53 AM CDT) Glucose, POC, bld 300(H) 65 - 199 mg/dl HISTORICAL RESULTS Blood specimen (specimen) 01/26/2013 11:53 AM CDT Silva Taylor MD LAB BLOOD ORDERABLES F inal Result Performing Organization Address [facility] Co de Phone Number HISTORICAL RESULTS * [...] ORDERABLES Pilar l Result Performing Organization Address [facility] de Phone Number HISTORICAL RESULTS [...] Tool Book at [email or web address] Current Interpretive Data was last revised 2012. Plasma 01/26/2013 11:1 0 AM CDT Michael Abdalla MD LAB BLOOD ORDERABLES Pilar l Result Performing Organization Address [facility] de Phone Number HISTORICAL RESULTS * (ABNORMAL) Plasma fibrinogen (01/26/2013 11:10 AM CDT) Fibrinogen 881(H) 170 - 400 mg/dl HISTORICAL RESULTS Plasma 01/26/2013 11:1 0 AM CDT Michael Abdalla MD LAB BLOOD ORDERABLES Pilar l Result Performing Organization Address [facility] de Phone Number HISTORICAL RESULTS [...] on the Evaluation and Management of HIT, [employer], 2009). The OLEG result [...] Blood glucose, POC (01/26/2013 7:56 AM CDT) [facility] Glucose, POC, bld 220(H) 65 - [...] agrees with it. ACC# ??Date Time ??Exam [id number] Jan 26, 2013 04:15:00 [id number] Chest 1 view Frontal EXAMINATION: ?? CHEST [...] agrees with it. ACC# Date Time Exam [id number] Jan 26, 2013 04:15:00 [id number] Chest 1 view Frontal EXAMINATION: CHEST 1 [...] ORDERABLES Pilar l Result Performing Organization Address [facility] de Phone Number HISTORICAL RESULTS [...] ORDERABLES Pilar l Result Performing Organization Address [facility] de Phone Number HISTORICAL RESULTS * (ABNORMAL) Plasma phosphorus (01/25/2013 11:15 PM CDT) Phosphorus, pl 1.4(L) 2.3 - 4.3 mg/dl HISTORICAL RESULTS Plasma 01/25/2013 11:1 5 PM CDT Michael Abdalla MD LAB BLOOD ORDERABLES Pilar l Result Performing Organization Address [facility] Co de Phone Number HISTORICAL RESULTS * [...] ORDERABLES Pilar l Result Performing Organization Address [facility]/ZIP Co de Phone Number HISTORICAL RESULTS * (ABNORMAL) Blood glucose, POC (01/25/2013 10:09 PM CDT) Pathologist [facility] Glucose, POC, bld 264(H) 65 - 199 mg/dl HISTORICAL RESULTS Blood specimen (specimen) 01/25/2013 10:09 PM CDT Josué Del Valle MD PhD LAB BLOOD ORDERABLES Fin al Result Performing Organization Address [facility] Co de Phone Number HISTORICAL RESULTS * [...] agrees with it. ACC# ??Date Time ??Exam [id number] Jan 25, 2013 15:40:[address] Chest with contrast [id number] Jan 25, 2013 15:41:[address] Abd & Pelvis with cont EXAMINATION: ?COMPUTED TOMOGRAPHY OF THE CHEST, ABDOMEN, AND PELVIS WITH CONTRAST TECHNIQUE: Computed tomography of the chest, abdomen, and pelvis was performed according to standard protocol with 92 mL Optiray-350 intravenous contrast. 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 FINDINGS: ?? Comparison is made to [...] agrees with it. ACC# Date Time Exam [id number] Jan 25, 2013 15:40:[id number] Chest with contrast [id number] Jan 25, 2013 15:41:[address] Abd & Pelvis with cont EXAMINATION: COMPUTED TOMOGRAPHY OF THE CHEST, ABDOMEN, AND PELVIS WITH CONTRAST TECHNIQUE: Computed tomography of the chest, abdomen, and pelvis was performed according to standard protocol with 92 mL Optiray-350 intravenous contrast. HISTORY: 47-year-old male with acute myelogenous leukemia, pancreatitis, and fgxpa-ymyxcn-edbr disease. FINDINGS: Comparison is made to a [...] agrees with it. ACC# ??Date Time ??Exam [id number] Jan 25, 2013 15:40:[id number] Chest with contrast [id number] Jan 25, 2013 15:41:[address] Abd & Pelvis with cont EXAMINATION: ?COMPUTED TOMOGRAPHY OF THE CHEST, ABDOMEN, AND PELVIS WITH CONTRAST TECHNIQUE: Computed tomography of the chest, abdomen, and pelvis was performed according to standard protocol with 92 mL Optiray-350 intravenous contrast. HISTORY: ??47-year-old male with acute myelogenous leukemia, pancreatitis, and watkg-lmwvza-hmfm disease. FINDINGS: ?? Comparison is made to [...] By: ANJALI DSOUZA ??Toño Dictated By: ?? MICAHEL BREWER M.D. HO ??on Jan 25 2013 ??4:37P This document has been electronically signed by: CORNELL CHANEY M.D. on Jan 25 2013 ??4:53P Procedure Note Provider, MD Shmuel - 03/22/2017 CORNELL CHANEY M.D. MICHAEL BREWER M.D. FINAL REPORT The radiology attending physician has personally reviewed this study, and has reviewed and/or edited this written report and agrees with it. ACC# Date Time Exam [id number] Jan 25, 2013 15:40:[id number] Chest with contrast [id number] Jan 25, 2013 15:41:[id number] Abd & Pelvis with cont EXAMINATION: COMPUTED TOMOGRAPHY OF THE CHEST, ABDOMEN, AND PELVIS WITH CONTRAST TECHNIQUE: Computed tomography of the chest, abdomen, and pelvis was performed according to standard protocol with 92 mL Optiray-350 intravenous contrast. HISTORY: 47-year-old male with acute myelogenous leukemia, pancreatitis, and eceqf-gnitji-pjfv disease. FINDINGS: Comparison is made to a [...] ORDERABLES Fin al Result Performing Organization Address [facility] Co de Phone Number HISTORICAL RESULTS * (ABNORMAL) Blood glucose, POC (01/25/2013 12:04 PM CDT) Glucose, POC, bld 248(H) 65 - 199 mg/dl HISTORICAL RESULTS Blood specimen (specimen) 01/25/2013 12:04 PM CDT Josué Del Valle MD PhD LAB BLOOD ORDERABLES Fin al Result Performing Organization Address [facility] Co de Phone Number HISTORICAL RESULTS * (ABNORMAL) Blood glucose, POC (01/25/2013 8:05 AM CDT) Glucose, POC, bld 289(H) 65 - 199 mg/dl HISTORICAL RESULTS Blood specimen (specimen) 01/25/2013 8:05 AM CDT Josué Del Valle MD PhD LAB BLOOD ORDERABLES Fin al Result Performing Organization Address [facility] Co de Phone Number HISTORICAL RESULTS * XR Chest 1 Vw (01/25/2013 5:40 AM CDT) Anatomical Region Laterality Modality Body, Chest N/A Radiographic Tiffany ging 01/25/2013 5:40 AM CDT Narrative 01/25/2013 7:59 AM CDT MARA GLORIA M.D. FINAL REPORT ACC# ??Date Time ??Exam [id number] Jan 25, 2013 04:40:00 [id number] Chest 1 view Frontal EXAMINATION: ?? Portable [...] M.D. FINAL REPORT ACC# Date Time Exam [id number] Jan 25, 2013 04:40:00 [id number] Chest 1 view Frontal EXAMINATION: Portable chest [...] (ABNORMAL) Serum calcium, ionized (01/25/2013 1:40 AM ROUTE MANAGER) Ca, ionized, sr 3.80(L) 4.50 - 5.10 mg/dl HISTORICAL RESULTS Serum 01/25/2013 1:40 AM ROUTE MANAGER Michael Abdalla MD LAB BLOOD ORDERABLES Pilar l Result Performing Organization Address [facility] de Phone Number HISTORICAL RESULTS * (ABNORMAL) Blood gas, point of care, arterial (01/25/2013 1:32 AM ROUTE MANAGER) Ph, art 7.47(H) 7.35 - 7.45 HISTORICAL [...] RESULTS Arterial blood 01/25/2013 1: 32 AM ROUTE MANAGER oJsué Del Valle MD PhD LAB BLOOD ORDERABLES Fin al Result Performing Organization Address [facility] Co de Phone Number HISTORICAL RESULTS * (ABNORMAL) Plasma comprehensive metabolic panel (01/24/2013 11:10 PM ROUTE MANAGER) Sodium 145 135 - 145 mmol/L HISTORICAL [...] HISTORICAL RESULTS Plasma 01/24/2013 11:1 0 PM ROUTE MANAGER Result [facility] Michael Abdalla MD LAB BLOOD ORDERABLES Pilar l Result Performing Organization Address [facility] Co de Phone Number HISTORICAL RESULTS * (ABNORMAL) Plasma phosphorus (01/24/2013 11:10 PM ROUTE MANAGER) Phosphorus, pl 2.2(L) 2.3 - 4.3 mg/dl HISTORICAL RESULTS Plasma 01/24/2013 11:1 0 PM ROUTE MANAGER Result [facility] Michael Abdalla MD LAB BLOOD ORDERABLES Pilar l Result Performing Organization Address [facility] Co de Phone Number HISTORICAL RESULTS * Serum vancomycin drug level (01/24/2013 11:10 PM ROUTE MANAGER) Vancomycin 5.0 mcg/ml HISTORICA L RESULTS Serum 01/24/2013 11:1 0 PM ROUTE MANAGER Historical Provider LAB BLOOD ORDERABLES Pilar l Result HISTORICAL RESULTS * Serum magnesium (01/24/2013 11:10 PM ROUTE MANAGER) Magnesium 1.4 1.4 - 2.5 mg/dl HISTORICAL RESULTS Serum 01/24/2013 11:1 0 PM ROUTE MANAGER Michael Abdalla MD LAB BLOOD ORDERABLES Pilar l Result Performing Organization Address [facility] Co de Phone Number HISTORICAL RESULTS * (ABNORMAL) Plasma partial thromboplastin time (PTT) (01/24/2013 10:30 PM ROUTE MANAGER) APTT 37.2(H) 25.0 - 37.0 seconds HISTORICAL RESULTS Comment: Interpretive Data Therapeutic heparin range:60.0 - 94.0 sec based on correlation with therapeutic heparin activity range of 0.3 -0.7 Units/mL. Current interpretive data was last revised on 2011. Plasma 01/24/2013 10:3 0 PM ROUTE MANAGER Michael Abdalla MD LAB BLOOD ORDERABLES Pilar l Result Performing Organization Address [facility] de Phone Number HISTORICAL RESULTS * (ABNORMAL) Plasma prothrombin time (PT) (01/24/2013 10:30 PM ROUTE MANAGER) Prothrombin time (PT) 12.4(H) 9.0 - 12.0 [...] Tool Book at [email or web address] Current Interpretive Data was last revised 2012. Plasma 01/24/2013 10:3 0 PM ROUTE MANAGER Michael Abdalla MD LAB BLOOD ORDERABLES Pilar l Result Performing Organization Address City/State/[facility] Co de Phone Number HISTORICAL RESULTS * (ABNORMAL) Blood cell count (CBC) (01/24/2013 10:30 PM ROUTE MANAGER) WBC 20.3(H) 3.8 - 9.8 K/cumm HISTORICAL [...] RESULTS Blood specimen (specimen) 01/24/2013 10:30 PM ROUTE MANAGER Michael Abdalla MD LAB BLOOD ORDERABLES Pilar l Result Performing Organization Address City/State/[facility] de Phone Number HISTORICAL RESULTS * Blood cell morphologic exam (01/24/2013 10:30 PM ROUTE MANAGER) [facility] Morphology scrn Original results obtained required verification by alternate method(s). Refer to CBC and/or observation sections for detailed results HISTORICAL RESULTS Blood specimen (specimen) 01/24/2013 10:30 PM ROUTE MANAGER Michael Abdalla MD LAB BLOOD ORDERABLES Pilar l Result Performing Organization Address [facility] de Phone Number HISTORICAL RESULTS * (ABNORMAL) Plasma basic metabolic panel (01/24/2013 9:50 PM ROUTE MANAGER) [facility] A. gap 11 0 - 16 [...] mg/dl HISTORICAL RESULTS Plasma 01/24/2013 9:50 PM ROUTE MANAGER Michael Abdalla MD LAB BLOOD ORDERABLES Pilar l Result Performing Organization Address [facility] de Phone Number HISTORICAL RESULTS * Blood tacrolimus (FK-506) drug level (01/24/2013 8:55 PM ROUTE MANAGER) [facility] Tacrolimus 8.9 ng/ml HISTORICA L RESULTS Comment: Interpretive Data This test was developed using an analyte specific reagent. ??Its performance characteristics were determined by the [facility] in a manner consistent with CLIA requirements. This test has not been cleared or approved by the U.S. Food and Drug Administration. Current interpretive data was last revised on 2012. Blood specimen (specimen) 01/24/2013 8:55 PM ROUTE MANAGER us Cristela Cueva MD LAB BLOOD ORDERABLES Final Result Performing Organization Address [facility] de Phone Number HISTORICAL RESULTS * (ABNORMAL) Blood glucose, POC (01/24/2013 8:04 PM ROUTE MANAGER) Glucose, POC, bld 328(H) 65 - 199 mg/dl HISTORICAL RESULTS Blood specimen (specimen) 01/24/2013 8:04 PM ROUTE MANAGER us Josué Del Valle MD PhD LAB BLOOD ORDERABLES Fin al Result Performing Organization Address [facility] de Phone Number HISTORICAL RESULTS * (ABNORMAL) Blood glucose, POC (01/24/2013 4:10 PM ROUTE MANAGER) Glucose, POC, bld 380(H) 65 - 199 mg/dl HISTORICAL RESULTS Blood specimen (specimen) 01/24/2013 4:10 PM ROUTE MANAGER Josué Del Valle MD PhD LAB BLOOD ORDERABLES Fin al Result Performing Organization Address [facility] de Phone Number HISTORICAL RESULTS * Urine sodium (01/24/2013 3:15 PM ROUTE MANAGER) Sodium, ur 46 mmol/L HISTORICA L RESULTS Urine 01/24/2013 3:15 PM ROUTE MANAGER us Michael Abdalla MD LAB BLOOD ORDERABLES Pilar l Result Performing Organization Address [facility] de Phone Number HISTORICAL RESULTS * Urine urea nitrogen (01/24/2013 3:15 PM ROUTE MANAGER) Urea nitrogen, ur 505 mg/dl HISTORICAL RESULTS Urine 01/24/2013 3:15 PM ROUTE MANAGER Michael Abdalla MD LAB BLOOD ORDERABLES Pilar l Result Performing Organization Address [facility] de Phone Number HISTORICAL RESULTS * Urine potassium (01/24/2013 3:15 PM ROUTE MANAGER) Potassium, ur 40 mmol/L HISTOR ICAL RESULTS Urine 01/24/2013 3:15 PM ROUTE MANAGER Michael Abdalla MD LAB BLOOD ORDERABLES Pilar l Result Performing Organization Address [facility] Co de Phone Number HISTORICAL RESULTS * Urine chloride (01/24/2013 3:15 PM ROUTE MANAGER) Chloride, ur 63 mmol/L HISTORI RHODA RESULTS Urine 01/24/2013 3:15 PM ROUTE MANAGER Michael Abdalla MD LAB BLOOD ORDERABLES Pilar l Result Performing Organization Address [facility] de Phone Number HISTORICAL RESULTS * Urine creatinine (01/24/2013 3:15 PM ROUTE MANAGER) Creatinine, ur 55.68 mg/dl HISTO RICAL RESULTS Urine 01/24/2013 3:15 PM ROUTE MANAGER Michael Abdalla MD LAB BLOOD ORDERABLES Pilar l Result Performing Organization Address [facility] de Phone Number HISTORICAL RESULTS * (ABNORMAL) Plasma basic metabolic panel (01/24/2013 12:30 PM ROUTE MANAGER) Sodium 143 135 - 145 mmol/L HISTORICAL [...] HISTORICAL RESULTS Plasma 01/24/2013 12:3 0 PM ROUTE MANAGER Historical Provider LAB BLOOD ORDERABLES Pilar l Result Performing Organization Address [facility] de Phone Number HISTORICAL RESULTS * (ABNORMAL) Serum lipase (01/24/2013 12:30 PM ROUTE MANAGER) Lip 718(C) 0 - 99 Units/L HISTORICAL RESULTS Serum 01/24/2013 12:3 0 PM ROUTE MANAGER Alfonso Pa MD LAB BLOOD ORDERABLES Final Result Performing Organization Address [facility] de Phone Number HISTORICAL RESULTS * Critical result call back (01/24/2013 12:30 PM ROUTE MANAGER) Date notified 01/24/2013 HISTO RICAL RESULTS Time notified 1432 HISTOR ICAL RESULTS Test name Lipase HISTORICAL RESULTS Called to Cheryl ARELLANO L RESULTS Credentials RN HISTORIC AL RESULTS Called by Waqar HISTORICAL RESULTS No specimen 01/24/2013 12:3 0 PM ROUTE MANAGER Alfonso Pa MD LAB BLOOD ORDERABLES Final Result Performing Organization Address [facility] de Phone Number HISTORICAL RESULTS * (ABNORMAL) Blood glucose, POC (01/24/2013 12:09 PM ROUTE MANAGER) Glucose, POC, bld 346(H) 65 - 199 mg/dl HISTORICAL RESULTS Blood specimen (specimen) 01/24/2013 12:09 PM ROUTE MANAGER Josué Del Valle MD PhD LAB BLOOD ORDERABLES Fin al Result Performing Organization Address [facility] de Phone Number HISTORICAL RESULTS * (ABNORMAL) Blood gas, point of care, arterial (01/24/2013 10:42 AM ROUTE MANAGER) Sodium, bld 139 135 - 145 mmol/L [...] RESULTS Arterial blood 01/24/2013 10 :42 AM ROUTE MANAGER Josué Del Valle MD PhD LAB BLOOD ORDERABLES Fin al Result HISTORICAL RESULTS * (ABNORMAL) Blood glucose, POC (01/24/2013 8:17 AM ROUTE MANAGER) Glucose, POC, bld 241(H) 65 - 199 mg/dl HISTORICAL RESULTS Blood specimen (specimen) 01/24/2013 8:17 AM ROUTE MANAGER Josué Del Valle MD PhD LAB BLOOD ORDERABLES Fin al Result HISTORICAL RESULTS * (ABNORMAL) Blood gas, point of care, arterial (01/24/2013 6:01 AM ROUTE MANAGER) Ph, art 7.18(C) 7.35 - 7.45 HISTORICAL [...] RESULTS Arterial blood 01/24/2013 6: 01 AM ROUTE MANAGER Josué Del Valle MD PhD LAB BLOOD ORDERABLES Fin al Result Performing Organization Address [facility] de Phone Number HISTORICAL RESULTS * Plasma lactic acid (01/24/2013 4:48 AM ROUTE MANAGER) Lactic acid 1.5 0.7 - 2.1 mmol/L HISTORICAL RESULTS Plasma 01/24/2013 4:48 AM ROUTE MANAGER Dayron Palomares LAB BLOOD ORDERABLES Final Resul t Performing Organization Address [facility] Phone Number HISTORICAL RESULTS * (ABNORMAL) Blood gas, point of care, venous (01/24/2013 4:05 AM ROUTE MANAGER) pH, eriberto 7.16(C) HISTORICAL RESULTS PCO2, eriberto [...] L RESULTS Venous blood 01/24/2013 4:05 AM ROUTE MANAGER Josué Del Valle MD PhD LAB BLOOD ORDERABLES Fin al Result Performing Organization Address [facility] de Phone Number HISTORICAL RESULTS * XR Chest 1 Vw (01/24/2013 3:44 AM ROUTE MANAGER) Anatomical Region Laterality Modality Body, Chest N/A Radiographic Tiffany ging 01/24/2013 3:44 AM ROUTE MANAGER Narrative 01/24/2013 10:40 AM ROUTE MANAGER Toño RHODES M.D. HO FINAL REPORT The radiology attending physician has personally reviewed this study, and has reviewed and/or edited this written report and agrees with it. ACC# ??Date Time ??Exam [id number] Jan 24, 2013 03:44:00 [id number] Chest 1 view Frontal EXAMINATION: ?? CHEST [...] agrees with it. ACC# Date Time Exam [id number] Jan 24, 2013 03:44:00 [id number] Chest 1 view Frontal EXAMINATION: CHEST 1 [...] Plasma comprehensive metabolic panel (01/24/2013 2:00 AM ROUTE MANAGER) Pathologist [facility] Sodium 140 135 - 145 mmol/L HISTORICAL [...] Units/L HISTORICAL RESULTS Plasma 01/24/2013 2:00 AM ROUTE MANAGER us Dayron Whitley SADAR 3D LAB BLOOD ORDERABLES Final Resul t HISTORICAL RESULTS * (ABNORMAL) Blood cell count (CBC) (01/24/2013 2:00 AM ROUTE MANAGER) Pathologist [facility] WBC 23.9(H) 3.8 - 9.8 K/cumm HISTORICAL [...] RESULTS Blood specimen (specimen) 01/24/2013 2:00 AM ROUTE MANAGER Ingogo LAB BLOOD ORDERABLES Final Resul t Performing Organization Address [facility] de Phone Number HISTORICAL RESULTS * Blood cell morphologic exam (01/24/2013 2:00 AM ROUTE MANAGER) Pathologist [facility] Morphology scrn Original results obtained required verification by alternate method(s). Refer to CBC and/or observation sections for detailed results HISTORICAL RESULTS Blood specimen (specimen) 01/24/2013 2:00 AM ROUTE MANAGER Siine LAB BLOOD ORDERABLES Final Resul t Performing Organization Address [facility] Co de Phone Number HISTORICAL RESULTS * (ABNORMAL) Blood glucose, POC (01/24/2013 1:56 AM ROUTE MANAGER) Glucose, POC, bld 237(H) 65 - 199 mg/dl HISTORICAL RESULTS Blood specimen (specimen) 01/24/2013 1:56 AM ROUTE MANAGER Josué Del Valle MD PhD LAB BLOOD ORDERABLES Fin al Result Performing Organization Address [facility] de Phone Number HISTORICAL RESULTS * (ABNORMAL) Blood gas, point of care, arterial (01/24/2013 1:56 AM ROUTE MANAGER) Ph, art 7.15(C) 7.35 - 7.45 HISTORICAL [...] RESULTS Arterial blood 01/24/2013 1: 56 AM ROUTE MANAGER Josué Del Valle MD PhD LAB BLOOD ORDERABLES Fin al Result Performing Organization Address [facility] de Phone Number HISTORICAL RESULTS * XR Chest 1 Vw (01/23/2013 7:07 PM ROUTE MANAGER) Anatomical Region Laterality Modality Body, Chest N/A Radiographic Tiffany ging 01/23/2013 7:07 PM ROUTE MANAGER Narrative 01/24/2013 4:01 PM ROUTE MANAGER GREGORIA TRINIDAD M.D. LACEY MOLINA M.D. HO FINAL REPORT The radiology attending physician has personally reviewed this study, and has reviewed and/or edited this written report and agrees with it. ACC# ??Date Time ??Exam [id number] Jan 23, 2013 19:07:00 [id number] Chest 1 view Frontal EXAMINATION: ?? CHEST [...] agrees with it. ACC# Date Time Exam [id number] Jan 23, 2013 19:07:00 [id number] Chest 1 view Frontal EXAMINATION: CHEST 1 [...] esult * Blood culture (01/23/2013 6:45 PM ROUTE MANAGER) Blood specimen (specimen) (Peripheral) 01/23/2013 6:45 PM ROUTE MANAGER 01/23/2013 7:35 PM ROUTE MANAGER Narrative HISTORICAL RESULTS - 01/29/2013 2:18 AM CDT No growth Historical Provider LAB MICROBIOLOGY - GENERA L ORDERABLES Final Result HISTORICAL RESULTS * Plasma lactic acid (01/23/2013 6:45 PM ROUTE MANAGER) Pathologist [facility] Lactic acid 1.7 0.7 - 2.1 mmol/L HISTORICAL RESULTS Plasma 01/23/2013 6:45 PM ROUTE MANAGER Marisela Townsend MD LAB BLOOD ORDERABLES Fin al Result Performing Organization Address City/[facility]/ZIP Co de Phone Number HISTORICAL RESULTS * Serum troponin I (01/23/2013 6:45 PM ROUTE MANAGER) Pathologist [facility] Troponin I <0.07 0.00 - 0.24 ng/ml [...] revised on 2008. Serum 01/23/2013 6:45 PM ROUTE MANAGER Marisela Townsend MD LAB BLOOD ORDERABLES Fin al Result HISTORICAL RESULTS * Blood B-type natriuretic peptide (BNP) (01/23/2013 6:45 PM ROUTE MANAGER) Pathologist [facility] BNP 45 0 - 100 pg/ml HISTORICAL RESULTS Blood specimen (specimen) 01/23/2013 6:45 PM ROUTE MANAGER Marisela Townsend MD LAB BLOOD ORDERABLES Fin al Result Performing Organization Address [facility] de Phone Number HISTORICAL RESULTS * Blood culture (01/23/2013 6:25 PM ROUTE MANAGER) Blood specimen (specimen) (Peripheral) 01/23/2013 6:25 PM ROUTE MANAGER 01/23/2013 7:36 PM ROUTE MANAGER Narrative HISTORICAL RESULTS - 01/29/2013 2:18 AM CDT No growth us Historical Provider LAB MICROBIOLOGY - GENERA L ORDERABLES Final Result Performing Organization Address [facility] de Phone Number HISTORICAL RESULTS * (ABNORMAL) Blood gas, arterial (01/23/2013 6:25 PM ROUTE MANAGER) Ph, art 7.24(L) 7.35 - 7.45 HISTORICAL [...] RESULTS Arterial blood 01/23/2013 6: 25 PM ROUTE MANAGER Stepan Mcgarry LAB BLOOD ORDERABLES Final Res ult Performing Organization Address [facility] de Phone Number HISTORICAL RESULTS * (ABNORMAL) Blood glucose, POC (01/23/2013 5:51 PM ROUTE MANAGER) Glucose, POC, bld 223(H) 65 - 199 mg/dl HISTORICAL RESULTS Gluc, com 1, bld RN Notified HISTORICAL RESULTS Blood specimen (specimen) 01/23/2013 5:51 PM ROUTE MANAGER Josué Del Valle MD PhD LAB BLOOD ORDERABLES Fin al Result Performing Organization Address [facility] de Phone Number HISTORICAL RESULTS * Urine (aerobic) culture (01/23/2013 4:20 PM ROUTE MANAGER) Urine (Unknown) 01/23/2013 4 :20 PM ROUTE MANAGER 01/23/2013 5:44 PM ROUTE MANAGER Narrative HISTORICAL RESULTS - 01/25/2013 11:35 AM CDT No growth us Historical Provider MD LAB MICROBIOLOGY - GENERA L ORDERABLES Final Result Performing Organization Address [facility] de Phone Number HISTORICAL RESULTS * (ABNORMAL) Urinalysis (01/23/2013 4:20 PM ROUTE MANAGER) Color, ur Yellow Yellow HISTORICAL RESULTS Clarity, [...] Negative HISTORICAL RESULTS Urine 01/23/2013 4:20 PM ROUTE MANAGER Yusuf Calderon LAB BLOOD ORDERABLES Final Resul t Performing Organization Address [facility] Phone Number HISTORICAL RESULTS * (ABNORMAL) Urine microscopy (01/23/2013 4:20 PM ROUTE MANAGER) RBC, ur 1 0 - 3 /hpf [...] HISTO RICAL RESULTS Urine 01/23/2013 4:20 PM ROUTE MANAGER Yusuf Pleitez Calderon LAB BLOOD ORDERABLES Final Resul t Performing Organization Address [facility] de Phone Number HISTORICAL RESULTS * Critical result call back (01/23/2013 3:10 PM ROUTE MANAGER) Date notified 01/23/2013 HISTO RICAL RESULTS Time notified 1607 HISTOR ICAL RESULTS Test name Lactate Whole Blood HISTORICAL RESULTS Called to Michelle Mitchell HISTORICAL RESULTS Credentials RN HISTORIC AL RESULTS Called by alebrto HISTORICAL RESULTS No specimen 01/23/2013 3:10 PM ROUTE MANAGER [employer]al [employer] LAB BLOOD ORDERABLES Final Res ult Performing Organization Address [facility] de Phone Number HISTORICAL RESULTS * (ABNORMAL) Plasma cortisol (01/23/2013 3:10 PM ROUTE MANAGER) Cortisol 22.6(H) 4.3 - 22.4 mcg/dl HISTORICAL RESULTS Comment: Interpretive Data Normal Range: ??4.3-22.4 mcg/dL; ??Evening: ??Half of morning value. This analyte undergoes marked diurnal variation. ??Ranges indicated apply to morning specimens. Current interpretive data was last revised 2011. Plasma 01/23/2013 3:10 PM ROUTE MANAGER [employer] LAB BLOOD ORDERABLES Final Res ult Performing Organization Address [facility] de Phone Number HISTORICAL RESULTS * (ABNORMAL) Blood lactic acid (01/23/2013 3:10 PM ROUTE MANAGER) Lactic acid 4.3(C) 0.7 - 2.1 mmol/L HISTORICAL RESULTS Blood specimen (specimen) 01/23/2013 3:10 PM ROUTE MANAGER LinQpayal O [employer] LAB BLOOD ORDERABLES Final Res ult Performing Organization Address [facility] de Phone Number HISTORICAL RESULTS * XR Chest 1 Vw (01/23/2013 1:51 PM ROUTE MANAGER) Anatomical Region Laterality Modality Body, Chest N/A Radiographic Tiffany ging 01/23/2013 1:51 PM ROUTE MANAGER Narrative 01/23/2013 7:08 PM ROUTE MANAGER BHAVIN GLAZER, M.Ghada LOUIS M.D. H.O. FINAL REPORT The radiology attending physician has personally reviewed this study, and has reviewed and/or edited this written report and agrees with it. ACC# ??Date Time ??Exam [id number] Jan 23, 2013 13:51:00 [id number] Chest 1 view Frontal EXAMINATION: ?? Chest [...] agrees with it. ACC# Date Time Exam [id number] Jan 23, 2013 13:51:00 [id number] Chest 1 view Frontal EXAMINATION: Chest 1 [...] partial thromboplastin time (PTT) (01/23/2013 1:30 PM ROUTE MANAGER) APTT 26.7 25.0 - 37.0 seconds HISTORICAL RESULTS Comment: Interpretive Data Therapeutic heparin range:60.0 - 94.0 sec based on correlation with therapeutic heparin activity range of 0.3 -0.7 Units/mL. Current interpretive data was last revised on 2011. Plasma 01/23/2013 1:30 PM ROUTE MANAGER [facility] [employer] LAB BLOOD ORDERABLES Final Res ult Performing Organization Address [facility] de Phone Number HISTORICAL RESULTS * Plasma prothrombin time (PT) (01/23/2013 1:30 PM ROUTE MANAGER) Prothrombin time (PT) 9.8 9.0 - 12.0 [...] updated copy of the Tool Book at [email or web address] Current Interpretive Data was last revised 2012. Plasma 01/23/2013 1:30 PM ROUTE MANAGER [facility] [employer] LAB BLOOD ORDERABLES Final Res ult Performing Organization Address [facility] de Phone Number HISTORICAL RESULTS * (ABNORMAL) Serum calcium, ionized (01/23/2013 1:30 PM ROUTE MANAGER) Ca, ionized, sr 4.23(L) 4.50 - 5.10 mg/dl HISTORICAL RESULTS Serum 01/23/2013 1:30 PM ROUTE MANAGER [employer] LAB BLOOD ORDERABLES Final Res ult Performing Organization Address [facility] Co de Phone Number HISTORICAL RESULTS * Serum lipase (01/23/2013 1:30 PM ROUTE MANAGER) Pathologist [facility] Lip See Comment 0 - 99 Units/L HISTORICAL RESULTS Comment:{Credited, duplicate test.} Serum 01/23/2013 1:30 PM ROUTE MANAGER [employer] LAB BLOOD ORDERABLES Final Res ult Performing Organization Address [facility] de Phone Number HISTORICAL RESULTS * (ABNORMAL) Plasma comprehensive metabolic panel (01/23/2013 1:30 PM ROUTE MANAGER) Pathologist [facility] Sodium 141 135 - 145 mmol/L HISTORICAL [...] Units/L HISTORICAL RESULTS Plasma 01/23/2013 1:30 PM ROUTE MANAGER [employer] LAB BLOOD ORDERABLES Final Res ult HISTORICAL RESULTS * (ABNORMAL) Serum lipase (01/23/2013 1:30 PM ROUTE MANAGER) Lip 2117(C) 0 - 99 Units/L HISTORICAL RESULTS Serum 01/23/2013 1:30 PM ROUTE MANAGER [facility] Al [employer] LAB BLOOD ORDERABLES Final Res ult HISTORICAL RESULTS * Critical result call back (01/23/2013 1:30 PM ROUTE MANAGER) Date notified 01/23/2013 HISTO RICAL RESULTS Time notified 155 HISTOR ICAL RESULTS Test name lipase HISTORICAL RESULTS Called to fermín carreno HISTORICAL RESULTS Credentials RN HISTORIC AL RESULTS Called by pat HISTORICAL RESULTS No specimen 01/23/2013 1:30 PM ROUTE MANAGER [facility] Al [employer] LAB BLOOD ORDERABLES Final Res ult Performing Organization Address [facility] Co de Phone Number HISTORICAL RESULTS * (ABNORMAL) Blood cell count (CBC) (01/23/2013 1:30 PM ROUTE MANAGER) WBC 20.0(H) 3.8 - 9.8 K/cumm HISTORICAL [...] RESULTS Blood specimen (specimen) 01/23/2013 1:30 PM ROUTE MANAGER Stepan G[employer]ami LAB BLOOD ORDERABLES Final Res ult Performing Organization Address [facility] Co de Phone Number HISTORICAL RESULTS * (ABNORMAL) Blood glucose, POC (01/23/2013 12:11 PM ROUTE MANAGER) Glucose, POC, bld 334(H) 65 - 199 mg/dl HISTORICAL RESULTS Gluc, com 1, bld RN Notified HISTORICAL RESULTS Blood specimen (specimen) 01/23/2013 12:11 PM ROUTE MANAGER Josué Del Valle MD PhD LAB BLOOD ORDERABLES Fin al Result Performing Organization Address [facility] Co de Phone Number HISTORICAL RESULTS * (ABNORMAL) Blood glucose, POC (01/23/2013 11:35 AM ROUTE MANAGER) Glucose, POC, bld 351(H) 65 - 199 mg/dl HISTORICAL RESULTS Gluc, com 1, bld RN Notified HISTORICAL RESULTS Blood specimen (specimen) 01/23/2013 11:35 AM ROUTE MANAGER Josué Del Valle MD PhD LAB BLOOD ORDERABLES Fin al Result Performing Organization Address [facility] Co de Phone Number HISTORICAL RESULTS * US Abdomen Complete (01/23/2013 11:01 AM ROUTE MANAGER) Anatomical Region Laterality Modality Abdomen N/A Ultrasound 01/23/2013 11:0 1 AM ROUTE MANAGER Narrative 01/23/2013 1:47 PM ROUTE MANAGER Toño PERSON M.D. HO FINAL REPORT The radiology attending physician has personally reviewed this study, and has reviewed and/or edited this written report and agrees with it. ACC# ??Date Time ??Exam [id number] Jan 23, 2013 11:01:00 [id number] Sono Abd Complt EXAMINATION: ?? COMPLETE ABDOMINAL [...] this written report and agrees with it. [facility]# Date Time Exam [id number] Jan 23, 2013 11:01:00 [id number] Sono Abd Complt EXAMINATION: COMPLETE ABDOMINAL SONOGRAM [...] (ABNORMAL) Blood glucose, POC (01/23/2013 10:00 AM ROUTE MANAGER) Glucose, POC, bld 376(H) 65 - 199 mg/dl HISTORICAL RESULTS Gluc, com 1, bld RN Notified HISTORICAL RESULTS Blood specimen (specimen) 01/23/2013 10:00 AM ROUTE MANAGER us Josué Del Valle MD PhD LAB BLOOD ORDERABLES Fin al Result HISTORICAL RESULTS * XR Abdomen 2 VW (01/23/2013 9:47 AM ROUTE MANAGER) Anatomical Region Laterality Modality Body N/A Radiographic Tiffany ging 01/23/2013 9:47 AM ROUTE MANAGER Narrative 01/23/2013 1:27 PM ROUTE MANAGER Toño MIDDLETON M.D. HO FINAL REPORT The radiology attending physician has personally reviewed this study, and has reviewed and/or edited this written report and agrees with it. ACC# ??Date Time ??Exam [id number] Jan 23, 2013 09:47:00 [id number] Abd w Dec Erect EXAMINATION: ?? Two-view [...] agrees with it. ACC# Date Time Exam [id number] Jan 23, 2013 09:47:00 [id number] Abd w Dec Erect EXAMINATION: Two-view abdomen, supine and decubitus HISTORY: AML, nausea and vomiting IMPRESSION: Supine and decubitus views of the abdomen are compared to the prior examination from 01/22/2013. The bowel gas pattern is normal. No free intraperitoneal air. Requested By: STEPAN MCGARRY M.D. Dictated By: Toño MUNIZ on Jan 23 2013 10:02A This document has been electronically signed by: CIERA VELA M.D. on Jan 23 2013 1:27P us Historical Provider MD TAPIA XR PROCEDURES Final R esult * (ABNORMAL) Blood cell count [CBC] express (01/23/2013 7:00 AM ROUTE MANAGER) WBC 21.3(H) 3.8 - 9.8 K/cumm HISTORICAL [...] RESULTS Blood specimen (specimen) 01/23/2013 7:00 AM ROUTE MANAGER Yusuf Pleitez [facility] LAB BLOOD ORDERABLES Final Resul t HISTORICAL RESULTS * Blood tacrolimus (FK-506) drug level (01/23/2013 6:00 AM ROUTE MANAGER) Tacrolimus 5.2 ng/ml HISTORICA L RESULTS Comment: Interpretive Data This test was developed using an analyte specific reagent. ??Its performance characteristics were determined by the [facility] in a manner consistent with CLIA requirements. This test has not been cleared or approved by the U.S. Food and Drug Administration. Current interpretive data was last revised on 2012. Blood specimen (specimen) 01/23/2013 6:00 AM ROUTE MANAGER us Yusuf Calderon LAB BLOOD ORDERABLES Final Resul t HISTORICAL RESULTS * (ABNORMAL) Blood glucose, POC (01/23/2013 12:01 AM ROUTE MANAGER) Glucose, POC, bld 359(H) 65 - 199 mg/dl HISTORICAL RESULTS Blood specimen (specimen) 01/23/2013 12:01 AM ROUTE MANAGER us Tiffanie Mckeon MD LAB BLOOD ORDERABLES Pilar l Result HISTORICAL RESULTS * All Microbiology Report Section (01/23/2013 12:00 AM ROUTE MANAGER) 01/23/2013 Narrative HISTORICAL RESULTS - 01/29/2013 3:37 AM CDT ? [facility] ?[facility] ?[place], [place] [address] ? Patient Name: ??KAMRON, BRI Denton ? Med Rec Number: [id number] ? Fin Number: ?[id number] ? Date: ?1965 ? Sex/Age: ? Male 47 years ? Admit Date: ?01/22/2013 ? Discharge Date: ? Doctor: ?Josué Del Valle ? Facility: ?[facility] ? Location: ?6900 [id number] 01 ?* Abnormal ??A Alert ??f Footnote [...] All Microbiology Report Section (01/23/2013 12:00 AM ROUTE MANAGER) 01/23/2013 Narrative HISTORICAL RESULTS - 01/29/2013 3:37 AM CDT ? [facility] ?[facility] ?[place], [place] [address] ? Patient Name: ??KAMRON BRI Denton ? Med Rec Number: [id number] ? Fin Number: ?[id number] ? Date: ?1965 ? Sex/Age: ? Male 47 years ? Admit Date: ?01/22/2013 ? Discharge Date: ? Doctor: ?Josué Del Valle ? Facility: ?[facility] ? Location: ?6900 [address] 01 ?* Abnormal ??A Alert ??f Footnote [...] All Microbiology Report Section (01/23/2013 12:00 AM ROUTE MANAGER) 01/23/2013 Narrative HISTORICAL RESULTS - 01/29/2013 3:37 AM CDT ? [facility] ?[facility] ?[place] [address] ? Patient Name: ??BRI JONES ? Med Rec Number: [id number] ? Fin Number: ?[id number] ? Date: ?1965 ? Sex/Age: ? Male 47 years ? Admit Date: ?01/22/2013 ? Discharge Date: ? Doctor: ?Jessica, Josué F ? Facility: ?[facility] ? Location: ?6900 [address] 01 ?* Abnormal ??A Alert ??f Footnote [...] REPORTED: 01/29/13 0218 ? No growth Result [facility] Provider LAB MICROBIOLOGY - GENERA L ORDERABLES Final Result HISTORICAL RESULTS * ELECTROCARDIOGRAPHY (ECG) (01/23/2013) Narrative 01/23/2013 Ordered by an unspecified provider. Result [facility] Provider ECG ORDERABLES Final Res ult * ELECTROCARDIOGRAPHY (ECG) (01/23/2013) Narrative 01/23/2013 Ordered by an unspecified provider. [facility] Provider ECG ORDERABLES Final Res ult * ELECTROCARDIOGRAPHY (ECG) (01/23/2013) Narrative 01/23/2013 Ordered by an unspecified provider. [facility] Provider MD ECG ORDERABLES Final Res ult * ELECTROCARDIOGRAPHY (ECG) (01/23/2013) Narrative 01/23/2013 Ordered by an unspecified provider. [facility] Provider MD ECG ORDERABLES Final Res ult * ELECTROCARDIOGRAPHY (ECG) (01/23/2013) Narrative 01/23/2013 Ordered by an unspecified provider. Result [facility] Provider ECG ORDERABLES Final Res ult * XR Abdomen 2 VW (01/22/2013 11:07 PM ROUTE MANAGER) Anatomical Region Laterality Modality Body N/A Radiographic Tiffany ging 01/22/2013 11:0 7 PM ROUTE MANAGER Narrative 01/23/2013 1:27 PM ROUTE MANAGER Toño MIDDLETON M.D. HO FINAL REPORT The radiology attending physician has personally reviewed this study, and has reviewed and/or edited this written report and agrees with it. ACC# ??Date Time ??Exam [id number] Jan 22, 2013 23:07:00 03912 Abdmn wi Decub &/or Erect EXAMINATION: ?? [...] agrees with it. ACC# Date Time Exam [id number] Jan 22, 2013 23:07:00 17774 Abdmn wi Decub &/or Erect EXAMINATION: Two-view [...] Helicobacter pylori ab, IgG (01/22/2013 9:01 PM ROUTE MANAGER) H. pylori ab, IgG Negative Negative HISTORICAL RESULTS Serum 01/22/2013 9:01 PM ROUTE MANAGER Yusuf Calderon LAB BLOOD ORDERABLES Final Resul t Performing Organization Address [facility] de Phone Number HISTORICAL RESULTS * (ABNORMAL) Blood hemoglobin A1C (01/22/2013 9:01 PM ROUTE MANAGER) Hgb A1C 8.7(H) 4.0 - 6.0 % HISTORICAL RESULTS Estimated average glucose 203 mg/dl HISTORICAL RESULTS Comment: The ADA recommends reporting an estimated Average Glucose (eAG) with all Hemoglobin A1c results using the equation derived from a study of 507 normal and diabetic adults. ??Minority populations were underrepresented and children were not included. ??(Diabetes Care 31:9282-7103, 2008). ??The eAG is not equivalent to a fasting glucose. Blood specimen (specimen) 01/22/2013 9:01 PM ROUTE MANAGER Yusuf Calderon LAB BLOOD ORDERABLES Final Resul t Performing Organization Address [facility] de Phone Number HISTORICAL RESULTS * Serum cholesterol, LDL (01/22/2013 9:01 PM ROUTE MANAGER) LDL, direct 120 0 - 129 mg/dl [...] revised on 05. Serum 01/22/2013 9:01 PM ROUTE MANAGER Yusuf Calderon LAB BLOOD ORDERABLES Final Resul t Performing Organization Address [facility] de Phone Number HISTORICAL RESULTS * (ABNORMAL) Plasma hepatic function panel (01/22/2013 9:01 PM ROUTE MANAGER) Protein, pl 6.6 6.5 - 8.5 g/dl HISTORICAL RESULTS Alb 3.8 3.6 - 5.0 g/dl HISTORICAL RESULTS Bilirubin 0.5 0.3 - 1.1 mg/dl HISTORICAL RESULTS Bilirubin, direct 0.1 0.0 - 0.3 mg/dl HISTORICAL RESULTS Alk phos 117 38 - 126 Units/L HISTORICAL RESULTS AST 24 11 - 47 Units/L HISTORICAL RESULTS ALT 82(H) 7 - 53 Units/L HISTORICAL RESULTS Plasma 01/22/2013 9:01 PM ROUTE MANAGER Yusuf Pawel Calderon LAB BLOOD ORDERABLES Final Resul t Performing Organization Address [facility] de Phone Number HISTORICAL RESULTS * (ABNORMAL) Serum lipid panel (01/22/2013 9:01 PM ROUTE MANAGER) Cholesterol 244(H) 0 - 200 mg/dl HISTORICAL [...] last revised 2012. Serum 01/22/2013 9:01 PM ROUTE MANAGER Yusuf Calderon LAB BLOOD ORDERABLES Final Resul t Performing Organization Address [facility] de Phone Number HISTORICAL RESULTS * (ABNORMAL) Plasma partial thromboplastin time (PTT) (01/22/2013 9:01 PM ROUTE MANAGER) APTT 22.4(L) 25.0 - 37.0 seconds HISTORICAL RESULTS Comment: Interpretive Data Therapeutic heparin range:60.0 - 94.0 sec based on correlation with therapeutic heparin activity range of 0.3 -0.7 Units/mL. Current interpretive data was last revised on 2011. Plasma 01/22/2013 9:01 PM ROUTE MANAGER Yusuf Pawel Calderon LAB BLOOD ORDERABLES Final Resul t Performing Organization Address City/[facility]/ZIP Co de Phone Number HISTORICAL RESULTS * (ABNORMAL) Plasma basic metabolic panel (01/22/2013 9:01 PM ROUTE MANAGER) Pathologist [facility] Sodium 138 135 - 145 mmol/L HISTORICAL [...] mg/dl HISTORICAL RESULTS Plasma 01/22/2013 9:01 PM ROUTE MANAGER Yusuf Calderon LAB BLOOD ORDERABLES Final Resul t Performing Organization Address [facility] de Phone Number HISTORICAL RESULTS * Serum troponin I (01/22/2013 9:01 PM ROUTE MANAGER) Pathologist [facility] Troponin I <0.07 0.00 - 0.24 ng/ml [...] revised on 2008. Serum 01/22/2013 9:01 PM ROUTE MANAGER Yusuf Calderon LAB BLOOD ORDERABLES Final Resul t Performing Organization Address [facility] Co de Phone Number HISTORICAL RESULTS * Plasma prothrombin time (PT) (01/22/2013 9:01 PM ROUTE MANAGER) Prothrombin time (PT) 9.3 9.0 - 12.0 [...] Tool Book at http://[facility]/pharmacy.nsf Current Interpretive Data was last revised 2012. Plasma 01/22/2013 9:0 1 PM ROUTE MANAGER Yusuf Calderon LAB BLOOD ORDERABLES Final Resul t Performing Organization Address [facility] de Phone Number HISTORICAL RESULTS * (ABNORMAL) Serum lipase (01/22/2013 9:01 PM ROUTE MANAGER) Lip 1770(C) 0 - 99 Units/L HISTORICAL RESULTS Serum 01/22/2013 9:01 PM ROUTE MANAGER Yusuf Calderon LAB BLOOD ORDERABLES Final Resul t Performing Organization Address [facility] de Phone Number HISTORICAL RESULTS * Critical result call back (01/22/2013 9:01 PM ROUTE MANAGER) Date notified 01/23/2013 HISTO RICAL RESULTS Time notified 0110 HISTOR ICAL RESULTS Test name lipase HISTORICAL RESULTS Called to balwinder marie HISTORICAL RESULTS Credentials RN HISTORIC AL RESULTS Called by lrw HISTORICAL RESULTS No specimen 01/22/2013 9:01 PM ROUTE MANAGER Yusuf Calderon LAB BLOOD ORDERABLES Final Resul t HISTORICAL RESULTS * (ABNORMAL) Blood cell count (CBC) (01/22/2013 9:01 PM ROUTE MANAGER) WBC 23.1(H) 3.8 - 9.8 K/cumm HISTORICAL [...] RESULTS Blood specimen (specimen) 01/22/2013 9:01 PM ROUTE MANAGER Yusuf Calderon LAB BLOOD ORDERABLES Final Resul t Performing Organization Address [facility] de Phone Number HISTORICAL RESULTS * Blood ABO, Rh, indirect ab screen (01/22/2013 9:01 PM ROUTE MANAGER) Ursula, indirect Negative HISTORICAL RESULTS ABO, Rho(D) A Positive HISTORI RHODA RESULTS Blood specimen (specimen) 01/22/2013 9:01 PM ROUTE MANAGER Yusuf Pleitez Calderon LAB BLOOD ORDERABLES Final Resul t Performing Organization Address [facility] Phone Number HISTORICAL RESULTS * (ABNORMAL) Plasma amylase (01/22/2013 9:01 PM ROUTE MANAGER) Kait, pl 1045(H) 28 - 100 Units/L HISTORICAL RESULTS Plasma 01/22/2013 9:01 PM ROUTE MANAGER Yusuf Calderon LAB BLOOD ORDERABLES Final Resul t Performing Organization Address [facility] Phone Number HISTORICAL RESULTS * Blood cell morphologic exam (01/22/2013 9:01 PM ROUTE MANAGER) Morphology scrn Original results obtained required verification by alternate method(s). Refer to CBC and/or observation sections for detailed results HISTORICAL RESULTS Observation NRBCs present HIST ORICAL RESULTS Blood specimen (specimen) 01/22/2013 9:01 PM ROUTE MANAGER Result [facility] Yusuf Calderon LAB BLOOD ORDERABLES Final Resul t Performing Organization Address [facility] de Phone Number HISTORICAL RESULTS * [...] respiratory failure (HCC) Acute respiratory failure Chronic dmewq-wivoet-tatb disease (HCC) Chronic lycyr-usykfu-ypop disease Complication of stem cell transplant (HCC) [...]
--- OUTSIDE RECORDS SUMMARY | 2024-11-22 13:13 | XMS_ITS | Encounter Summary ---
Author Organization [facility] Facility Care Team Providers Care Wrap Yarn Sorter Name Role Phone Unavailable Primary Care Provider Unavailabl e Encounter Details Date Type Department Care Team (Late st Contact Info) Description 04/05/2009 - 04/05/2009 11:59 PM CDT Hospital Encounter [facility] Josué rAmenta MD PhD [address] DIV IM BONE MARROW TRANSPLANT, [address] [place] [address] Other follow-up examination Social History Tobacco Use Types Packs/Day Years Used Date Smoking Tobacco: Never Assessed Sex and Gender Information Value Date Recorded Sex Assigned at Not on file Legal Sex Male 10:48 AM USABILITY SPECIALIST Gender Identity Not on file Sexual Orientation Not on file documented as of this encounter Plan of Treatment Not on file documented as of this encounter Visit Diagnoses Diagnosis Other follow-up examination documented in this encounter
--- OUTSIDE RECORDS SUMMARY | 2024-11-22 13:13 | XMS_ITS | Encounter Summary ---
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
--- OUTSIDE RECORDS SUMMARY | 2024-11-22 13:13 | XMS_ITS | Encounter Summary ---
Author Organization [facility] Facility Care Team Providers Care Marketing Reporting Analyst Name Role Phone Unavailable Primary Care Provider Unavailabl e Encounter Details Date Type Department Care Team (Late st Contact Info) Description 01/06/2013 - 01/06/2013 11:59 PM PATIENT CENTERED CARE SPECIALIST Hospital Encounter [facility] Carmen Kaye MD [address] [address] Pre-operative respiratory examination; Shortness of breath Social History Tobacco Use Types Packs/Day Years Used Date Smoking Tobacco: Never Assessed Sex and Gender Information Value Date Recorded Sex Assigned at Not on file Legal Sex Male 10:48 AM PATIENT CENTERED CARE SPECIALIST Gender Identity Not on file [...] LATERAL 2 VIEWS Routine 01/07/2013 8:56 AM PATIENT CENTERED CARE SPECIALIST documented in this encounter Results * XR Chest Pa Lateral 2 Views (01/07/2013 8:56 AM PATIENT CENTERED CARE SPECIALIST) Anatomical Region Laterality Modality Body, Chest N/A Radiographic Tiffany ging 01/07/2013 8:56 AM PATIENT CENTERED CARE SPECIALIST Narrative 01/07/2013 4:54 PM PATIENT CENTERED CARE SPECIALIST Toño RHODES M.D. HO FINAL REPORT The radiology attending physician has personally reviewed this study, and has reviewed and/or edited this written report and agrees with it. ACC# ??Date Time ??Exam [id number] Jan 07, 2013 08:56:00 [id number] Chest 2 views Frontl & Lat EXAMINATION: [...] agrees with it. ACC# Date Time Exam [id number] Jan 07, 2013 08:56:00 30778 Chest 2 views Frontl & Lat EXAMINATION: [...]
--- OUTSIDE RECORDS SUMMARY | 2024-11-22 13:13 | XMS_ITS | Encounter Summary ---
Author Organization [facility] Facility Care Team Providers Care Health Companion Name Role Phone Unavailable Primary Care Provider Unavailabl e Encounter Details Date Type Department Care Team (Latest Contact Info) Description 07/13/2008 12:56 PM CDT - 07/18/2008 1:46 PM CDT Hospital Encounter [facility] Sammy Resendiz MD [address] DIV BONE MARROW TRANSPLANT, [address] [address] Encounter for antineoplastic chemotherapy; Acute myeloid leukemia (HCC); Tobacco use disorder Social History Tobacco Use Types Packs/Day Years Used Date Smoking Tobacco: Never Assessed Sex and Gender Information Value Date Recorded Sex Assigned at Not on file Legal Sex Male 10:48 AM CONCRETE INSPECTOR Gender Identity Not on file Sexual Orientation Not on file documented as of this encounter Plan of Treatment Not on file documented as of this encounter Visit Diagnoses Diagnosis Encounter for antineoplastic chemotherapy Acute myeloid leukemia (HCC) Acute myeloid leukemia, without mention of having achieved remission Tobacco use disorder documented in this encounter
--- OUTSIDE RECORDS SUMMARY | 2024-11-22 13:13 | XMS_ITS | Encounter Summary ---
Author Organization [facility] Facility Care Team Providers Care Plumber Cub Name Role Phone Unavailable Primary Care Provider Unavailabl e Encounter Details Date Type Department Care Team (Late st Contact Info) Description 11/18/2008 - 11/17/2009 11:59 PM DAIRY MANAGER Hospital Encounter [facility] Josué Armenta MD PhD [address] DIV BONE MARROW TRANSPLANT, [address] [address] Acute myeloid leukemia in remission (HCC); Chemotherapy follow-up examination; Examination of participant in clinical trial; Other specified pre-operative examination; Acute myeloid leukemia (HCC) Social History Tobacco Use Types Packs/Day Years Used Date Smoking Tobacco: Never Assessed Sex and Gender Information Value Date Recorded Sex Assigned at Not on file Legal Sex Male 10:48 AM DAIRY MANAGER Gender Identity Not on file Sexual [...]
--- OUTSIDE RECORDS SUMMARY | 2024-11-22 13:13 | XMS_ITS | Encounter Summary ---
Author Organization [facility] Facility Care Team Providers Care Black Studies Professor Name Role Phone Unavailable Primary Care Provider Unavailabl e Encounter Details Date Type Department Care Team (Latest Contact Info) Description 06/22/2009 4:25 PM CDT - 06/24/2009 6:21 PM CDT Hospital Encounter [facility] Josué Armenta MD PhD [address] [facility] BONE MARROW TRANSPLANT, [address] [address] Acute myeloid leukemia (HCC); Paralytic strabismus, sixth [...] on file Legal Sex Male 10:48 AM CYCLE MANAGER Gender Identity Not on file Sexual [...]
--- OUTSIDE RECORDS SUMMARY | 2024-11-22 13:13 | XMS_ITS | Encounter Summary ---
Author Organization [facility] Facility Care Team Providers Care Cordwood Cutter Name Role Phone Unavailable Primary Care Provider Unavailabl e Encounter Details Date Type Department Care Team (Late st Contact Info) Description 06/29/2009 - 06/29/2009 11:59 PM CDT Hospital Encounter [facility] Josué Armenta MD PhD [address] BONE MARROW TRANSPLANT, [address] [place] [address] Disorder of cranial nerve; Acute myeloid leukemia in remission (HCC); Chemotherapy follow-up examination; Examination of participant in clinical trial; Other specified pre-operative examination; Acute myeloid leukemia (HCC) Social History Tobacco Use Types Packs/Day Years Used Date Smoking Tobacco: Never Assessed Sex and Gender Information Value Date Recorded Sex Assigned at Not on file Legal Sex Male 10:48 AM CHASSIS DRIVER Gender Identity Not on file Sexual [...]
--- OUTSIDE RECORDS SUMMARY | 2024-11-22 13:13 | XMS_ITS | Encounter Summary ---
Author Organization [facility] Facility Care Team Providers Care Indirect Fire Infantryman Name Role Phone Unavailable Primary Care Provider Unavailabl e Encounter Details Date Type Department Care Team (Latest Contact Info) Description 09/12/2009 3:39 PM CDT - 10/12/2009 4:09 PM [facility] Hospital En[facility] JihanDora in, Unruly Chahal MD [address] DIV BONE MARROW TRANSPLANT, [address] [address] Josué Del Valle MD PhD [address] DIV BONE MARROW TRANSPLANT, [address] [address] Encounter for antineoplastic chemotherapy; Pulmonary collapse; Acute [...] on file Legal Sex Male 10:48 AM HELPDESK ANALYST Gender Identity Not on file Sexual [...]
--- OUTSIDE RECORDS SUMMARY | 2024-11-22 13:13 | XMS_ITS | Encounter Summary ---
Author Organization [facility] Facility Care Team Providers Care Cover Creaser Name Role Phone Unavailable Primary Care Provider Unavailabl e Encounter Details Date Type Department Care Team (Late st Contact Info) Description 10/15/2008 2:43 PM ENVELOPE SEALER - 10/26/2008 3:38 PM ENVELOPE SEALER [facility], Venkata Wagner MD [address] BONE MARROW TRANSPLANT, [address] [address] Neutropenia (HCC); Acute myeloid leukemia in remission (HCC); Thrombocytopenia (HCC); Pulmonary collapse; Examination of participant in clinical trial; Fever presenting with conditions classified elsewhere; Headache; Tobacco use disorder; Anemia Social History Tobacco Use Types Packs/Day Years Used Date Smoking Tobacco: Never Assessed Sex and Gender Information Value Date Recorded Sex Assigned at Not on file Legal Sex Male 10:48 AM ENVELOPE SEALER Gender Identity Not on file Sexual Orientation [...]
--- OUTSIDE RECORDS SUMMARY | 2024-11-22 13:13 | XMS_ITS | Encounter Summary ---
Author Organization [facility] Facility Care Team Providers Care Spring Intern Name Role Phone Unavailable Primary Care Provider Unavailabl e Encounter Details Date Type Department Care Team (Late st Contact Info) Description 06/12/2010 - 06/12/2010 11:59 PM CDT Hospital Encounter [facility] Josué Armenta MD PhD [address] DIV BONE MARROW TRANSPLANT, [address] [place] [address] Acute myeloid leukemia (HCC); Calculus of gallbladder; Other specified disorders of biliary tract; Status post bone marrow transplant (HCC) Social History Tobacco Use Types Packs/Day Years Used Date Smoking Tobacco: Never Assessed Sex and Gender Information Value Date Recorded Sex Assigned at Not on file Legal Sex Male 10:48 AM NCQA SPECIALIST Gender Identity Not on file Sexual [...]
--- OUTSIDE RECORDS SUMMARY | 2024-11-22 13:13 | XMS_ITS | Encounter Summary ---
Author Organization [facility] Facility Care Team Providers Care Rn Outpatient Surgery Name Role Phone Unavailable Primary Care Provider Unavailabl e Encounter Details Date Type Department Care Team (Latest Contact Info) Description 11/03/2012 - 11/03/2012 11:59 PM PARTS SALVAGER Hospital Encounter [facility] Josué Armenta MD PhD [address] DIV BONE MARROW TRANSPLANT, [address] [address] Personal history of myeloid leukemia; Nonspecific (abnormal) [...] file Legal Sex Male 10:48 AM PARTS SALVAGER Gender Identity Not on file Sexual Orientation [...]
--- OUTSIDE RECORDS SUMMARY | 2024-11-22 13:13 | XMS_ITS | Encounter Summary ---
Author Organization [facility] Facility Care Team Providers Care Moving Consultant Name Role Phone Unavailable Primary Care Provider Unavailabl e Encounter Details Date Type Department Care Team (Late st Contact Info) Description 09/12/2009 - 09/12/2009 11:59 PM CDT Hospital Encounter [facility] Josué Armenta MD PhD [address] DIV BONE MARROW TRANSPLANT, [address] [place] [address] Follow-up examination; Acute myeloid leukemia (HCC) Social History Tobacco Use Types Packs/Day Years Used Date Smoking Tobacco: Never Assessed Sex and Gender Information Value Date Recorded Sex Assigned at Not on file Legal Sex Male 10:48 AM CORPORATE LOGISTICS MANAGER Gender Identity Not on file Sexual Orientation Not on file documented as of this encounter Plan of Treatment Not on file documented as of this encounter Visit Diagnoses Diagnosis Follow-up examination Acute myeloid leukemia (HCC) Acute myeloid leukemia, without mention of having achieved remission documented in this encounter
--- OUTSIDE RECORDS SUMMARY | 2024-11-22 13:13 | XMS_ITS | Encounter Summary ---
Author Organization [facility] Facility Care Team Providers Care Shipping Processor Name Role Phone Unavailable Primary Care Provider Unavailabl e Encounter Details Date Type Department Care Team (Late st Contact Info) Description 10/25/2009 - 10/25/2009 11:59 PM TANK FILLER Hospital Encounter [facility] Josué Armenta MD PhD [address] DIV IM BONE MARROW TRANSPLANT, [address] [place] [address] Acute myeloid leukemia (HCC) Social History Tobacco Use Types Packs/Day Years Used Date Smoking Tobacco: Never Assessed Sex and Gender Information Value Date Recorded Sex Assigned at Not on file Legal Sex Male 10:48 AM TANK FILLER Gender Identity Not on file Sexual Orientation Not on file documented as of this encounter Plan of Treatment Not on file documented as of this encounter Visit Diagnoses Diagnosis Acute myeloid leukemia (HCC) Acute myeloid leukemia, without mention of having achieved remission documented in this encounter
--- OUTSIDE RECORDS SUMMARY | 2024-11-22 13:13 | XMS_ITS | Encounter Summary ---
Author Organization [facility] Facility Care Team Providers Care Content Writer Name Role Phone Unavailable Primary Care Provider Unavailabl e Encounter Details Date Type Department Care Team (Late st Contact Info) Description 04/13/2009 10:43 AM CDT - 04/13/2009 4:00 PM T Hospital Encounter [facility] Taz Hoffman, ELAN [address] [place] [address] Periapical abscess without sinus tract; Alveolitis of jaw; Acute myeloid leukemia (HCC); Essential hypertension; Tobacco use disorder; Encounter for long-term (current) use of other medications Social History Tobacco Use Types Packs/Day Years Used Date Smoking Tobacco: Never Assessed Sex and Gender Information Value Date Recorded Sex Assigned at Not on file Legal Sex Male 10:48 AM CUSTODIAL MAINTENANCE WORKER Gender Identity Not on file Sexual [...]
--- OUTSIDE RECORDS SUMMARY | 2024-11-22 13:13 | XMS_ITS | Encounter Summary ---
Author Organization [facility] Facility Care Team Providers Care Access Control Specialist Name Role Phone Unavailable Primary Care Provider Unavailabl e Encounter Details Date Type Department Care Team (Late st Contact Info) Description 11/18/2011 - 11/17/2012 11:59 PM POLITICAL CARTOONIST Hospital Encounter [facility] Josué Armenta MD PhD [address] DIV BONE MARROW TRANSPLANT, [address] [place] [address] Acute myeloid leukemia in remission (HCC); Disorder of bone and cartilage; History of peripheral stem cell transplant (HCC) Social History Tobacco Use Types Packs/Day Years Used Date Smoking Tobacco: Never Assessed Sex and Gender Information Value Date Recorded Sex Assigned at Not on file Legal Sex Male 10:48 AM POLITICAL CARTOONIST Gender Identity Not on file Sexual Orientation [...]
--- OUTSIDE RECORDS SUMMARY | 2024-11-22 13:13 | XMS_ITS | Encounter Summary ---
Author Organization [facility] Facility Care Team Providers Care Ship Surveyor Name Role Phone Unavailable Primary Care Provider Unavailabl e Encounter Details Date Type Department Care Team (Late st Contact Info) Description 10/31/2009 - 11/17/2009 11:59 PM HOG CONFINEMENT SYSTEM MANAGER Hospital Encounter [facility] Kirt Parker Social History Tobacco Use Types Packs/Day Years Used Date Smoking Tobacco: Never Assessed Sex and Gender Information Value Date Recorded Sex Assigned at Not on file Legal Sex Male 10:48 AM HOG CONFINEMENT SYSTEM MANAGER Gender Identity Not on file Sexual Orientation Not on file documented as of this encounter Plan of Treatment Not on file documented as of this encounter Visit Diagnoses Not on filedocumented in this encounter
--- OUTSIDE RECORDS SUMMARY | 2024-11-22 13:13 | XMS_ITS | Encounter Summary ---
Author Organization [facility] Facility Care Team Providers Care Consumer Affairs Director Name Role Phone Unavailable Primary Care Provider Unavailabl e Encounter Details Date Type Department Care Team (Late st Contact Info) Description 12/25/2010 Hospital Encounter [facility] Josué Armenta MD PhD [address] DIV BONE MARROW TRANSPLANT, [place] [address] Acute myeloid leukemia (HCC); Examination of participant in clinical trial; History of peripheral stem cell transplant (HCC) Social History Tobacco Use Types Packs/Day Years Used Date Smoking Tobacco: Never Assessed Sex and Gender Information Value Date Recorded Sex Assigned at Not on file Legal Sex Male 10:48 AM SILVICULTURE PROFESSOR Gender Identity Not on file Sexual [...]
--- OUTSIDE RECORDS SUMMARY | 2024-11-22 13:13 | XMS_ITS | Encounter Summary ---
Author Organization [facility] Facility Care Team Providers Care Shop Clerk Name Role Phone Unavailable Primary Care Provider Unavailabl e Encounter Details Date Type Department Care Team (Latest Contact Info) Description 07/24/2008 10:40 PM CDT - 08/01/2008 12:19 PM CDT Hospital Encounter [facility] Josué Armenta MD PhD [address] BONE MARROW TRANSPLANT, [address] [address] Neutropenia (HCC); Acute myeloid leukemia (HCC); Fever and other physiologic disturbances of temperature regulation; Painful respiration; Periapical abscess without sinus tract Social History Tobacco Use Types Packs/Day Years Used Date Smoking Tobacco: Never Assessed Sex and Gender Information Value Date Recorded Sex Assigned at Not on file Legal Sex Male 10:48 AM CHILDCARE ATTENDANT Gender Identity Not on file Sexual [...]
--- OUTSIDE RECORDS SUMMARY | 2024-11-22 13:13 | XMS_ITS | Encounter Summary ---
Author Organization [facility] Facility Care Team Providers Care Chemical Engraver Name Role Phone Unavailable Primary Care Provider Unavailabl e Encounter Details Date Type Department Care Team (Late st Contact Info) Description 09/18/2008 12:01 AM CDT - 10/17/2008 11:59 PM IT QUALITY ASSURANCE ANALYST Hospital Encounter [facility] Social History Tobacco Use Types Packs/Day Years Used Date Smoking Tobacco: Never Assessed Sex and Gender Information Value Date Recorded Sex Assigned at Not on file Legal Sex Male 10:48 AM IT QUALITY ASSURANCE ANALYST Gender Identity Not on file Sexual Orientation Not on file documented as of this encounter Plan of Treatment Not on file documented as of this encounter Visit Diagnoses Not on filedocumented in this encounter
--- OUTSIDE RECORDS SUMMARY | 2024-11-22 13:13 | XMS_ITS | Encounter Summary ---
Author Organization [facility] Facility Care Team Providers Care Sheet Hanger Name Role Phone Unavailable Primary Care Provider Unavailabl e Encounter Details Date Type Department Care Team (Late st Contact Info) Description 06/01/2008 - 11/17/2008 11:59 PM WORKERS COMPENSATION CLAIMS EXAMINER Hospital Encounter [facility] Rock Lin MD [address] [facility] [address] [place] [address] Special screening for other conditions; Examination of participant in clinical trial Social History Tobacco Use Types Packs/Day Years Used Date Smoking Tobacco: Never Assessed Sex and Gender Information Value Date Recorded Sex Assigned at Not on file Legal Sex Male 10:48 AM WORKERS COMPENSATION CLAIMS EXAMINER Gender Identity Not on file Sexual Orientation Not on file documented as of this encounter Plan of Treatment Not on file documented as of this encounter Visit Diagnoses Diagnosis Special screening for other conditions Examination of participant in clinical trial documented in this encounter
--- OUTSIDE RECORDS SUMMARY | 2024-11-22 13:13 | XMS_ITS | Encounter Summary ---
Author Organization [facility] Facility Care Team Providers Care Air Traffic Control Equipment Repairer Name Role Phone Unavailable Primary Care Provider Unavailabl e Encounter Details Date Type Department Care Team (Late st Contact Info) Description 12/08/2010 - 12/08/2010 11:59 PM SKIN PASS OPERATOR Hospital Encounter [facility] Josué Armenta MD PhD [address] DIV BONE MARROW TRANSPLANT, [address] [address] Infectious and parasitic disease Social History Tobacco Use Types Packs/Day Years Used Date Smoking Tobacco: Never Assessed Sex and Gender Information Value Date Recorded Sex Assigned at Not on file Legal Sex Male 10:48 AM SKIN PASS OPERATOR Gender Identity Not on file Sexual [...]
--- OUTSIDE RECORDS SUMMARY | 2024-11-22 13:13 | XMS_ITS | Encounter Summary ---
Author Organization [facility] Facility Care Team Providers Care Brick Chimney Supervisor Name Role Phone Unavailable Primary Care Provider Unavailabl e Encounter Details Date Type Department Care Team (Late st Contact Info) Description 10/01/2008 5:00 PM MARIONETTE PERFORMER - 10/06/2008 1:44 PM MARIONETTE PERFORMER Hospital Encounter [facility] Francis York MD PhD [address] [facility] [address] [place] [address] Encounter for antineoplastic chemotherapy; Acute myeloid leukemia in remission (HCC); Acute pharyngitis; Examination of participant in clinical trial Social History Tobacco Use Types Packs/Day Years Used Date Smoking Tobacco: Never Assessed Sex and Gender Information Value Date Recorded Sex Assigned at Not on file Legal Sex Male 10:48 AM MARIONETTE PERFORMER Gender Identity Not on file Sexual Orientation Not on file documented as of this encounter Plan of Treatment Not on file documented as of this encounter Visit Diagnoses Diagnosis Encounter for antineoplastic chemotherapy Acute myeloid leukemia in remission (HCC) Acute myeloid leukemia in remission Acute pharyngitis Examination of participant in clinical trial documented in this encounter
--- OUTSIDE RECORDS SUMMARY | 2024-11-22 13:13 | XMS_ITS | Encounter Summary ---
Author Organization [facility] Facility Care Team Providers Care Welt Sole Layer Name Role Phone Unavailable Primary Care Provider Unavailabl e Encounter Details Date Type Department Care Team (Late st Contact Info) Description 03/01/2010 - 03/01/2010 11:59 PM CDT Hospital Encounter [facility] Josué Armenta MD PhD [address] DIV BONE MARROW TRANSPLANT, [address] [place] [address] Cough; Pulmonary congestion and hypostasis Social History Tobacco Use Types Packs/Day Years Used Date Smoking Tobacco: Never Assessed Sex and Gender Information Value Date Recorded Sex Assigned at Not on file Legal Sex Male 10:48 AM FRICKERTRON CHECKER Gender Identity Not on file Sexual Orientation Not on file documented as of this encounter Plan of Treatment Not on file documented as of this encounter Visit Diagnoses Diagnosis Cough Pulmonary congestion and hypostasis documented in this encounter
--- OUTSIDE RECORDS SUMMARY | 2024-11-22 13:13 | XMS_ITS | Encounter Summary ---
Author Organization [facility] Facility Care Team Providers Care Gun Synchronizer Name Role Phone Unavailable Primary Care Provider Unavailabl e Encounter Details Date Type Department Care Team (Late st Contact Info) Description 12/06/2009 - 11/17/2010 11:59 PM SUPERVISOR SPECIAL EFFECTS Hospital Encounter [facility] Akhil Sharp MD [address] [address] [place] [address] Acute myeloid leukemia (HCC); Examination of participant in clinical trial; Cough; Pulmonary congestion and hypostasis; Calculus of gallbladder; Other specified disorders of biliary tract; Status post bone marrow transplant (HCC) Social History Tobacco Use Types Packs/Day Years Used Date Smoking Tobacco: Never Assessed Sex and Gender Information Value Date Recorded Sex Assigned at Not on file Legal Sex Male 10:48 AM SUPERVISOR SPECIAL EFFECTS Gender Identity Not on file Sexual Orientation [...] CHEST 1 VIEW Routine 01/22/2013 2:18 PM SUPERVISOR SPECIAL EFFECTS BRONCHOSCOPY 01/22/2013 documented in this encounter Results * XR Chest 1 Vw (01/22/2013 2:18 PM SUPERVISOR SPECIAL EFFECTS) Anatomical Region Laterality Modality Body, Chest N/A Radiographic Tiffany ging 01/22/2013 2:18 PM SUPERVISOR SPECIAL EFFECTS Narrative 01/22/2013 5:57 PM SUPERVISOR SPECIAL EFFECTS Toño HONG M.D. HO FINAL REPORT The radiology attending physician has personally reviewed this study, and has reviewed and/or edited this written report and agrees with it. ACC# ??Date Time ??Exam [id number] Jan 22, 2013 14:18:00 98518 Chest 1 view Frontal EXAMINATION: ?? CHEST [...] agrees with it. ACC# Date Time Exam [id number] Jan 22, 2013 14:18:00 [id number] Chest 1 view Frontal EXAMINATION: CHEST 1 [...]
--- OUTSIDE RECORDS SUMMARY | 2024-11-22 13:13 | XMS_ITS | Encounter Summary ---
Author Organization [facility] Facility Care Team Providers Care Commercial Lines Underwriter Name Role Phone Unavailable Primary Care Provider Unavailabl e Encounter Details Date Type Department Care Team (Late st Contact Info) Description 11/27/2010 - 11/17/2011 11:59 PM ELEMENTARY EDUCATION TEACHER Hospital Encounter [facility] Josué Armenta MD PhD [address] DIV BONE MARROW TRANSPLANT, [address] [address] Acute myeloid leukemia in remission (HCC); Examination of participant in clinical trial Social History Tobacco Use Types Packs/Day Years Used Date Smoking Tobacco: Never Assessed Sex and Gender Information Value Date Recorded Sex Assigned at Not on file Legal Sex Male 10:48 AM ELEMENTARY EDUCATION TEACHER Gender Identity Not on file [...]
--- OUTSIDE RECORDS SUMMARY | 2024-11-22 13:13 | XMS_ITS | Encounter Summary ---
Author Organization [facility] Facility Care Team Providers Care Structural Steel Erector Name Role Phone Unavailable Primary Care Provider Unavailabl e Encounter Details Date Type Department Care Team (Late st Contact Info) Description 06/01/2008 - 06/01/2008 11:59 PM CDT Hospital Encounter [facility] Neftaly Morelos MD [address] [facility] [address] [place] [address] Social History Tobacco Use Types Packs/Day Years Used Date Smoking Tobacco: Never Assessed Sex and Gender Information Value Date Recorded Sex Assigned at Not on file Legal Sex Male 10:48 AM CARVING 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 Gender Identity Not on file Sexual Orientation Not on file documented as of this encounter Plan of Treatment Not on file documented as of this encounter Visit Diagnoses Not on filedocumented in this encounter
--- OUTSIDE RECORDS SUMMARY | 2024-11-22 13:13 | XMS_ITS | Encounter Summary ---
Author Organization [facility] Facility Care Team Providers Care Meringuer Name Role Phone Unavailable Primary Care Provider Unavailabl e Encounter Details Date Type Department Care Team (Late st Contact Info) Description 06/01/2008 5:35 PM CDT - 06/27/2008 1:13 PM CDT [facility] PhD [address] [address] Encounter for antineoplastic chemotherapy; Cellulitis and abscess [...] file Legal Sex Male 10:48 AM INSPECTOR PURCHASED PARTS Gender Identity Not on file Sexual Orientation [...]
--- OUTSIDE RECORDS SUMMARY | 2024-11-22 13:13 | XMS_ITS | Encounter Summary ---
Author Organization [facility] Facility Care Team Providers Care Surface Water Manager Name Role Phone Unavailable Primary Care Provider Unavailabl e Encounter Details Date Type Department Care Team (Late st Contact Info) Description 08/24/2008 2:34 PM CDT - 08/29/2008 12:25 PM CDT Hospital Encounter [facility] CL[facility] Rafael, Venkata Wagner MD [address] DIV BONE MARROW TRANSPLANT, [address] [place] [address] Encounter for antineoplastic chemotherapy; Acute myeloid leukemia (HCC); Examination of participant in clinical trial Social History Tobacco Use Types Packs/Day Years Used Date Smoking Tobacco: Never Assessed Sex and Gender Information Value Date Recorded Sex Assigned at Not on file Legal Sex Male 10:48 AM CENTRIFUGE SEPARATOR TENDER Gender Identity Not on file Sexual [...]
--- OUTSIDE RECORDS SUMMARY | 2024-11-22 13:13 | XMS_ITS | Encounter Summary ---
Author Organization [facility] Facility Care Team Providers Care Supervisor Pressing Department Name Role Phone Unavailable Primary Care Provider Unavailabl e Encounter Details Date Type Department Care Team (Latest Contact Info) Description 10/31/2009 11:27 AM GRAVURE PRESS SET UP OPERATOR - 11/30/2009 1:20 PM [facility] Hospital Encounter [facility] Josué Armenta MD PhD [address] [facility] BONE MARROW TRANSPLANT, [address] [address] 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); Bacteremia; [...] on file Legal Sex Male 10:48 AM GRAVURE PRESS SET UP OPERATOR Gender Identity Not on [...]
--- OUTSIDE RECORDS SUMMARY | 2024-11-22 13:13 | XMS_ITS | Encounter Summary ---
Author Organization [facility] Facility Care Team Providers Care Migrant Leader Name Role Phone Unavailable Primary Care Provider [...] on file Legal Sex Male 10:48 AM MULE PACKER Gender Identity Not on file Sexual Orientation Not on file documented as of this encounter Plan of Treatment Not on file documented as of this encounter Visit Diagnoses Not on filedocumented in this encounter
--- OUTSIDE RECORDS SUMMARY | 2024-11-22 13:13 | XMS_ITS | Encounter Summary ---
Author Organization [facility] Facility Care Team Providers Care Smoke Tester Name Role Phone Unavailable Primary Care Provider Unavailabl e Encounter Details Date Type Department Care Team (Late st Contact Info) Description 05/25/2010 - 05/25/2010 11:59 PM CDT Hospital Encounter [facility] Josué Armenta MD PhD [address] DIV IM BONE MARROW TRANSPLANT, [address] [place] [address] Acute myeloid leukemia (HCC) Social History Tobacco Use Types Packs/Day Years Used Date Smoking Tobacco: Never Assessed Sex and Gender Information Value Date Recorded Sex Assigned at Not on file Legal Sex Male 10:48 AM 3D SPECIALIST Gender Identity Not on file Sexual [...]
--- OUTSIDE RECORDS SUMMARY | 2024-11-22 13:13 | XMS_ITS | Encounter Summary ---
Author Organization [facility] Facility Care Team Providers Care Offset Press Operator Helper Name Role Phone Unavailable Primary Care Provider Unavailabl e Encounter Details Date Type Department Care Team (Late st Contact Info) Description 04/08/2009 2:53 PM CDT - 04/08/2009 4:00 PM CDT Hospital Encounter [facility] Taz Hoffman, ELAN [address] [place] [address] Other specified pre-operative examination; Acute myeloid leukemia (HCC) Social History Tobacco Use Types Packs/Day Years Used Date Smoking Tobacco: Never Assessed Sex and Gender Information Value Date Recorded Sex Assigned at Not on file Legal Sex Male 10:48 AM ASSISTANT BUYER Gender Identity Not on file Sexual Orientation Not on file documented as of this encounter Plan of Treatment Not on file documented as of this encounter Visit Diagnoses Diagnosis Other specified pre-operative examination Acute myeloid leukemia (HCC) Acute myeloid leukemia, without mention of having achieved remission documented in this encounter
--- OUTSIDE RECORDS SUMMARY | 2024-11-22 13:13 | XMS_ITS | Encounter Summary ---
Author Organization [facility] Facility Care Team Providers Care Resource Conservation Manager Name Role Phone Unavailable Primary Care Provider Unavailabl e Encounter Details Date Type Department Care Team (Late st Contact Info) Description 07/19/2009 - 07/19/2009 11:59 PM CDT Hospital Encounter [facility] CLINCONCelso Yates MD [address] [address] Paralytic strabismus, sixth or abducens nerve palsy; Examination of participant in clinical trial Social History Tobacco Use Types Packs/Day Years Used Date Smoking Tobacco: Never Assessed Sex and Gender Information Value Date Recorded Sex Assigned at Not on file Legal Sex Male 10:48 AM SENIOR NUCLEAR MEDICINE TECHNOLOGIST Gender Identity Not on file Sexual Orientation Not on file documented as of this encounter Plan of Treatment Not on file documented as of this encounter Visit Diagnoses Diagnosis Paralytic strabismus, sixth or abducens nerve palsy Examination of participant in clinical trial documented in this encounter
--- OUTSIDE RECORDS SUMMARY | 2024-11-22 13:13 | XMS_ITS | Encounter Summary ---
Author Organization [facility] Facility Care Team Providers Care Teradata Architect Name Role Phone Unavailable Primary Care Provider Unavailabl e Encounter Details Date Type Department Care Team (Late st Contact Info) Description 05/25/2009 - 05/25/2009 11:59 PM CDT Hospital Encounter [facility] Josué Armenta MD PhD [address] DIV IM BONE MARROW TRANSPLANT, [address] [place] [address] Encounter for fitting and adjustment of non-vascular catheter NEC; Acute myeloid leukemia (HCC) Social History Tobacco Use Types Packs/Day Years Used Date Smoking Tobacco: Never Assessed Sex and Gender Information Value Date Recorded Sex Assigned at Not on file Legal Sex Male 10:48 AM DOCUMENT PREPARATION SPECIALIST Gender Identity Not on file Sexual Orientation Not on file documented as of this encounter Plan of Treatment Not on file documented as of this encounter Visit Diagnoses Diagnosis Encounter for fitting and adjustment of non-vascular catheter NEC Acute myeloid leukemia (HCC) Acute myeloid leukemia, without mention of having achieved remission documented in this encounter
== END 2024-11-15 16:19 | disposition short-term general hospital (02) ==
PROVIDERS: Emergency Provider General Practice; PCP Internal Medicine
DX: T18.128A Food in esophagus causing other injury, initial encounter (principal); W44.F3XA Food entering into or through a natural orifice, initial encounter; J96.10 Chronic respiratory failure, unspecified whether with hypoxia or hypercapnia; Z99.81 Dependence on supplemental oxygen; Z85.6 Personal history of leukemia; Z79.01 Long term (current) use of 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; I25.10 Atherosclerotic heart disease of native coronary artery without angina pectoris; Z86.718 Personal history of other venous thrombosis and embolism; F41.8 Other specified anxiety disorders; N48.6 Induration penis plastica; E78.5 Hyperlipidemia, unspecified; Z86.711 Personal history of pulmonary embolism; Z79.4 Long term (current) use of insulin
CPT/HCPCS: 36415; 80053; 83690; 83735; 85025; 85610; 85730; 93005; 96361; 96374; 99285; J1610; J7040

== ENCOUNTER 2024-11-21 06:15 | Inpatient (IN) | payer MEDICARE, SELFPAY ==
[2024-11-21] VITALS (41 sets, daily range): BP systolic 96–143; BP diastolic 67–89; PULSE 75–124; RESP 14–100; TEMP 36.5–36.9; O2SAT 90–100; BMI 18.4
--- NOTE | ~2024-11-21 | CT_ITS ---
CT Scan of the Chest without Contrast: Clinical Indication: COPD, pneumonia Technique: Contiguous sections were acquired throughout the chest without intravenous contrast. Dose reduction technique was used on this scan by utilizing automated exposure control and iterative recon struction technique. The dose-length product (DLP) was 176.03 mGy-cm. COMPARISON: 10/23/2024 Findings: There is no evidence of any significant mediastinal, hilar or axillary lymphadenopathy. The mediastin al soft tissues appear normal. There is no evidence of pleural or pericardial effusion. Stable right apical consolidation with cavitary change. Focal consolidation the posterior medial left upper lobe/left apex is again present, with new area of central cavitation (axial image 40 for examp le). Stable 7 mm left upper lobe pulmonary nodule (axial image 50). Stable 8 mm right upper lobe pulm onary nodule (axial image 49). New area of groundglass opacity in the inferior left upper lobe/lingul a (axial image 88 for example). Stable focal nodular irregular consolidation at the extreme left lung base (axial image 129). There is probable moderate emphysematous change of the lungs. Images through the upper abdomen reveal no abnormalities. Impression: New area of groundglass opacity in the inferior left upper lobe/lingula, compatible with infectious/i nflammatory process. Additional pulmonary findings are otherwise essentially unchanged, including right upper lobe consoli dation with areas of cavitary change as well as scattered additional bilateral areas of focal consoli dation and nodularity. Moderate emphysema. Reviewed, dictated and finalized at [facility]. [facility] 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 Impression: New area of groundglass opacity in the inferior left upper lobe/lingula, compat ible with infectious/inflammatory process. Additional pulmonary findings are otherwise essentially unchanged, including ri ght upper lobe consolidation with areas of cavitary change as well as scattered additional bilateral areas of focal consolidation and nodularity. Moderate emphysema.
--- NOTE | ~2024-11-21 | XR_ITS ---
XR chest 1V portable DATE: 11/21/2024 06:52 INDICATION: Shortness of breath TECHNIQUE: Portable upright AP chest on 11/21/2024 at 0642 hours COMPARISON: 10/23/2024 CT chest 10/23/2024 portable AP chest 01/15/2024 portable AP chest FINDINGS: Severe COPD. Chronic severe right upper lobe atelectasis, probable scarring, possible cavit ation. Probable mild focal lateral right midlung scarring, stable since 04/2024 and diminished in prominence since 01/15/2024. New patchy mildly nodular infiltrate in the left mid and lower lung zones, which may represent active infection. No pleural effusion or pulmonary vascular congestion or pneumothorax is detected. Normal heart size. Aortic arch calcification. No hilar or mediastinal mass lesion or adenopathy is ev ident. Osteopenia. IMPRESSION: Mild new patchy nodular infiltrate in the left mid and lower lung zones, suggesting pneum onia Severe COPD Chronic severe right upper lobe atelectasis and scarring, possible cavitation Reviewed, dictated and finalized at location A. ERIES AGENT IMPRESSION: Mild new patchy nodular infiltrate in the left mid and lower lung z ones, suggesting pneumonia Severe COPD Chronic severe right upper lobe atelectasis and scarring, possible cavitation
--- NOTE | 2024-11-21 06:26 | ECG_ITS ---
Test Date: 2024-11-21 06:28:13 Measurements Intervals [place] Rate: 114 P: 84 UT: 147 QRS: 94 QRSD: 89 T: 48 QT: 305 QTc: 420 Interpretive Statements SINUS TACHYCARDIA WITH FREQUENT ECTOPIC PREMATURE COMPLEXES BORDERLINE RIGHT AXIS DEVIATION [QRS AXIS > 90] NONSPECIFIC T-WAVE ABNORMALITY ABNORMAL RHYTHM ECG Compared to ECG 11/15/2024 12:37:09 NO SIGNIFICANT CHANGES Electronically Signed On 11-24-2024 17:57:40 CHARGE POSTER by Chin La M.D.
--- NOTE | 2024-11-21 06:29 | ED_ITS ---
HPI - General Adult General Chief complaint: Shortness of Breath/Dyspnea <Marcos Burkett MD - Last Filed: 11/21/24 06:32> Stated complaint: SOB, CPAP'd <Marcos Burkett MD - Last Filed: 11/21/24 06:32> Time Seen by Provider: 11/21/24 06:19 <Marcos Burkett MD - Last Filed: 11/21/24 06:32> History of Present Illness HPI narrative: Patient 59-year-old gentleman presents emergency department with chief complaint of shortness of breath. The patient has prior history of COPD CHF diabetes and leukemia the patient reports that he has been having increasing shortness of breath over the last several days on reports that tonight it got so bad that he called EMS the patient was saturating in the 80s was started on CPAP by EMS the patient reports that he took 20 of prednisone and also did some albuterol treatments prior to arrival. <Marcos Burkett MD - Last Filed: 11/21/24 06:32> Related Data Home medications: Home Medications ?Medication ?Instructions ?Recorded ?Confirmed ?Last Taken ?Type rivaroxaban 20 mg tablet (Xarelto) 20 mg PO QAM 02/06/23 10/23/24 10/21/24 History gabapentin 300 mg capsule 300 mg PO QID 07/22/24 10/23/24 10/21/24 History (Neurontin) albuterol sulfate 90 mcg/actuation 1 puff inhalation Q4-6H PRN 10/23/24 10/23/24 Unknown History aerosol inhaler Shortness Of Breath Or Wheezing atorvastatin 40 mg tablet (Lipitor) 40 mg PO HS 10/23/24 10/23/24 10/21/24 History cholecalciferol (vitamin D3) 25 50 mcg PO DAILY 10/23/24 10/23/24 10/21/24 History mcg (1,000 unit) tablet clofazimine 50 mg capsule 100 mg PO DAILY 10/23/24 10/23/24 10/21/24 History cyanocobalamin (vitamin B-12) 1,000 mcg PO DAILY 10/23/24 10/23/24 10/21/24 History 1,000 mcg tablet empagliflozin 10 mg tablet 10 mg PO DAILY 12/05/1110/23/24 10/21/24 History (Jardiance) fluticasone fur. 200 mcg-umeclid 1 inh inhalation DAILY 10/23/24 10/23/24 10/22/24 09:00 History 62.5 mcg-vilant 25 mcg inhalat.powder (Trelegy Ellipta) guaifenesin 600 mg tablet, 600 mg PO Q12H 10/23/24 10/23/24 10/21/24 History extended release 12 hr (Mucinex) metoprolol succinate 25 mg 12.5 mg PO DAILY 10/23/24 10/23/24 10/21/24 History tablet,extended release 24 hr nicotine 21 mg/24 hr daily 1 patch transdermal DAILY 10/23/24 10/23/24 Unknown History transdermal patch omega-3 acid ethyl esters 1 gram 1 cap PO DAILY 10/23/24 10/23/24 10/21/24 History capsule (Lovaza) ondansetron 4 mg disintegrating 4 mg PO Q8H PRN Nausea And Vomiting 10/23/24 10/23/24 Unknown History tablet pantoprazole 40 mg tablet,delayed 40 mg PO Q12H 10/23/24 10/23/24 Unknown History release voriconazole 200 mg tablet 200 mg PO Q12H 10/23/24 10/23/24 10/21/24 History <Marcos Burkett MD - Last Filed: 11/21/24 06:32> Allergies/adverse reactions: Allergies Allergy/AdvReac Type Severity Reaction Status Date / Time adhesive tape AdvReac Unknown PAPER Verified 10/23/24 05:58 TAPE,REDNESS AND IRRITATION <Marcos Burkett MD - Last Filed: 11/21/24 06:32> Review of Systems 2 Review of Systems: A 10 system review of systems was completed on the patient and is negative except for what is stated in the HPI. Nursing and ancillary documentation was reviewed. <Marcos Burkett MD - Last Filed: 11/21/24 06:32> [facility] Past Medical History Medical History: Medical History Pill esophagitis Peyronie's disease CAD (coronary artery disease) Infectious disease of immune system (~10/02/23) ST elevation (STEMI) myocardial infarction (12/30/22) Chronic anticoagulation Immunocompromised patient Patient on anti rejection medications. Positive nasal culture for methicillin resistant Staphylococcus aureus Deep venous thrombosis Insulin dependent type 2 diabetes mellitus Chronic respiratory failure with hypoxia On 5 liters nasal cannula at nighttime. 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 Peripheral neuropathy Pulmonary emboli Hyperlipidemia Hyperglycemia <Marcos Burkett MD - Last Filed: 11/21/24 06:32> Surgical History Surgical History: Surgical History Status post cataract extraction of both eyes with insertion of intraocular lens History of heart artery stent 12/30/2022 100% occlusion mid RCA with drug-eluting stent, left coronary system with [id number] disease History of stem cell transplant History of orthopedic surgery Left tibia liz placement <Marcos Burkett MD - Last Filed: 11/21/24 06:32> Family History Family History: Family History Mother Acute myocardial infarction, Onset Age: 42 Father COPD (chronic obstructive pulmonary disease) Diabetes mellitus Alcohol abuse <Marcos Burkett MD - Last Filed: 11/21/24 06:32> Social History Social History: Social History Social History: Surrogate medical decision maker: Lissy Kaiser, friend/roommate. Code status: Full code. Years smoked: 44 Smoking status: Current some day smoker Tobacco type: cigarettes Smoking end date: 08/07/22 Additional smoking assessment comments: on nicotine patches, states he is currently on patches Alcohol intake: never Substance use: never Substance use type: does not use Do You Feel Safe in your Home?: Yes Lack of Transportation: No Lack of Food: Never True Current Housing: I Have Housing Concerned About Future Housing: No Difficulty Paying Gas/Electric Bills: YES Difficulty Paying for Meds: No Currently Unemployed: No Education: High School Diploma/GED Difficulty w/ Childcare or Family Care: No Living arrangements: with friend(s) Additional living arrangements comments: He lives with his roommate in [place]. Occupation/Education: unemployed Spiritual care concerns: No Agree to blood products: Yes <Marcos Burkett MD - Last Filed: 11/21/24 06:32> Exam 2 Narrative: GENERAL: Ill-appearing, Thin, and in moderate acute respiratory distress. HEAD: Normocephalic, atraumatic. EYES: PERRLA and EOMI. ENT: Nares clear, no rhinorrhea or epistaxis. Mucous membranes moist. NECK: Supple. CHEST: Crackles to auscultation. Moderate respiratory distress. HEART: Regular rate and rhythm. No murmur heard. Normal peripheral pulses. ABDOMEN: Soft, nontender, nondistended, normal active bowel sounds. EXTREMITIES: Normal range of motion. No edema. SKIN: Warm, dry, no rash. NEURO: No focal deficits. Alert and oriented x3. PSYCH: Normal mood and affect. <Marcos Burkett MD - Last Filed: 11/21/24 06:32> Course Vital Signs Vital signs: Vital Signs Temperature 36.9 C 11/21/24 06:14 Pulse Rate 124 H 11/21/24 06:14 Respiratory Rate 25 H 11/21/24 06:14 Blood Pressure 143/76 H 11/21/24 06:14 Pulse Oximetry 90 11/21/24 06:14 Oxygen Delivery BiPAP 11/21/24 06:14 Oxygen Flow Rate 15 11/21/24 06:14 Temperature 36.9 C 11/21/24 06:14 Pulse Rate 101 H 11/21/24 07:59 Respiratory Rate 15 11/21/24 07:59 Blood Pressure 105/71 11/21/24 07:16 Pulse Oximetry 100 11/21/24 07:59 Oxygen Delivery BiPAP 11/21/24 07:59 Oxygen Flow Rate 15 11/21/24 06:21 <Marcos Burkett MD - Last Filed: 11/21/24 06:32> Vital Signs Temperature 36.9 C 11/21/24 06:14 Pulse Rate 124 H 11/21/24 06:14 Respiratory Rate 25 H 11/21/24 06:14 Blood Pressure 143/76 H 11/21/24 06:14 Pulse Oximetry 90 11/21/24 06:14 Oxygen Delivery BiPAP 11/21/24 06:14 Oxygen Flow Rate 15 11/21/24 06:14 Temperature 36.9 C 11/21/24 06:14 Pulse Rate 101 H 11/21/24 07:59 Respiratory Rate 15 11/21/24 07:59 Blood Pressure 105/71 11/21/24 07:16 Pulse Oximetry 100 11/21/24 07:59 Oxygen Delivery BiPAP 11/21/24 07:59 Oxygen Flow Rate 15 11/21/24 06:21 <Desi Chambers MD - Last Filed: 11/21/24 09:11> Medical Decision Making Vital Signs Vital Signs: Vital Signs Temperature 36.9 C 11/21/24 06:14 Pulse Rate 124 H 11/21/24 06:14 Respiratory Rate 25 H 11/21/24 06:14 Blood Pressure 143/76 H 11/21/24 06:14 Pulse Oximetry 90 11/21/24 06:14 Oxygen Delivery BiPAP 11/21/24 06:14 Oxygen Flow Rate 15 11/21/24 06:14 Temperature 36.9 C 11/21/24 06:14 Pulse Rate 101 H 11/21/24 07:59 Respiratory Rate 15 11/21/24 07:59 Blood Pressure 105/71 11/21/24 07:16 Pulse Oximetry 100 11/21/24 07:59 Oxygen Delivery BiPAP 11/21/24 07:59 Oxygen Flow Rate 15 11/21/24 06:21 <Marcos Burkett MD - Last Filed: 11/21/24 06:32> Vital Signs Temperature 36.9 C 11/21/24 06:14 Pulse Rate 124 H 11/21/24 06:14 Respiratory Rate 25 H 11/21/24 06:14 Blood Pressure 143/76 H 11/21/24 06:14 Pulse Oximetry 90 11/21/24 06:14 Oxygen Delivery BiPAP 11/21/24 06:14 Oxygen Flow Rate 15 11/21/24 06:14 Temperature 36.9 C 11/21/24 06:14 Pulse Rate 101 H 11/21/24 07:59 Respiratory Rate 15 11/21/24 07:59 Blood Pressure 105/71 11/21/24 07:16 Pulse Oximetry 100 11/21/24 07:59 Oxygen Delivery BiPAP 11/21/24 07:59 Oxygen Flow Rate 15 11/21/24 06:21 <Desi Chambers MD - Last Filed: 11/21/24 09:11> Lab Data Result diagrams: 11/21/24 06:38 11/21/24 06:38 <Marcos Burkett MD - Last Filed: 11/21/24 06:32> Labs: Lab Results 11/21/24 11/21/24 11/21/24 Range/Units 06:38 06:39 07:57 WBC 13.5 H (4.5-10.0) K/mm3 RBC 3.22 L (4.6-6.20) M/mm3 Hgb 11.4 L (14.0-18.0) g/dL Hct 35.6 L (42.0-52.0) % MCV 110.6 H (80-100) fl MCH 35.4 H (26-34) pg MCHC 32.0 (32-36) g/dl RDW 14.6 H (11.5-14.5) % Plt Count TNP MPV 10.5 H (7.4-10.4) fl Immature Gran % (Auto) 0.4 (0-0.5) % Neut % (Auto) 83.3 H (45.5-73.1) % Lymph % (Auto) 6.6 L (18.3-44.2) % [place] % (Auto) 9.1 H (2.6-8.5) % Eos % (Auto) 0.4 (0-4.4) % Baso % (Auto) 0.2 (0.2-1.2) % Lymph # (Auto) 0.89 L (0.9-3.2) K/mm3 [place] # (Auto) 1.2 H (0.1-0.6) K/mm3 Eos # (Auto) 0.1 (0-0.3) K/mm3 Baso # (Auto) 0.0 (0.0-0.1) K/mm3 Abs Immat Gran (auto) 0.05 H (0.00-0.031) K/mm3 Absolute Neuts (auto) 11.2 H (1.3-6.7) K/mm3 Absolute Nucleated RBC 0.000 (0.0-0.012) K/mm3 Nucleated RBC % 0.0 (0.0-0.2) % Platelet Estimate Adequate (Adequate) Target Cells 1+ Stomatocytes 1+ Schistocytes None seen PT 27.8 H D (11.1-14.7) Seconds INR 2.5 APTT 49.3 H (22.3-36.8) Seconds Expiratory Pressure 6 CMH2O Inspiratory Pressure 12 CMH2O Sodium 139 (137-145) mmol/L Potassium 4.8 (3.4-5.0) mmol/L Chloride 102 (98-107) mmol/L Carbon Dioxide 33 H (22-30) mmol/L Anion Gap 4 (4-12) mmol/L BUN 27 H (9-20) mg/dL Creatinine 0.90 (0.7-1.3) mg/dL Estim Creat Clear Calc 67 ml/min Estimated GFR > 60 (59 - ) Glucose 251 H (65-110) mg/dL Lactic Acid 2.0 (0.7-2.0) mmol/L Calcium 9.4 (8.4-10.2) mg/dL Magnesium 1.9 (1.6-2.3) mg/dL Total Bilirubin 0.6 (0.2-1.3) mg/dL AST 60 H (17-59) U/L ALT 61 H (6-50) U/L Alkaline Phosphatase 137 H (38-126) U/L Troponin I 0.030 (0.000-0.034) ng/mL NT-Pro-B Natriuret Pep 5710 H (19.9-100) pg/mL Total Protein 8.0 (6.3-8.2) g/dL Albumin 4.3 (3.5-5.1) g/dL Lipase 20 L (23-300) U/L Procalcitonin 0.6 ng/mL Urine Color Urine Appearance Urine pH Ur Specific [place] Urine Protein Urine Glucose (UA) Urine Ketones Ur Blood (Man) Urine Nitrate Urine Bilirubin Urine Urobilinogen Leukocyte Esterase Rfl Influenza A (RT-PCR) Negative (Negative) Influenza B (RT-PCR) Negative (Negative) RSV (RT-PCR) Negative (Negative) SARS-CoV-2 RNA (RT-PCR) Negative (Negative) 11/21/24 Range/Units 08:51 WBC (4.5-10.0) K/mm3 RBC (4.6-6.20) M/mm3 Hgb (14.0-18.0) g/dL Hct (42.0-52.0) % MCV (80-100) fl MCH (26-34) pg MCHC (32-36) g/dl RDW (11.5-14.5) % Plt Count MPV (7.4-10.4) fl Immature Gran % (Auto) (0-0.5) % Neut % (Auto) (45.5-73.1) % Lymph % (Auto) (18.3-44.2) % [place] % (Auto) (2.6-8.5) % Eos % (Auto) (0-4.4) % Baso % (Auto) (0.2-1.2) % Lymph # (Auto) (0.9-3.2) K/mm3 [place] # (Auto) (0.1-0.6) K/mm3 Eos # (Auto) (0-0.3) K/mm3 Baso # (Auto) (0.0-0.1) K/mm3 Abs Immat Gran (auto) (0.00-0.031) K/mm3 Absolute Neuts (auto) (1.3-6.7) K/mm3 Absolute Nucleated RBC (0.0-0.012) K/mm3 Nucleated RBC % (0.0-0.2) % Platelet Estimate (Adequate) Target Cells Stomatocytes Schistocytes PT (11.1-14.7) Seconds INR APTT (22.3-36.8) Seconds Expiratory Pressure CMH2O Inspiratory Pressure CMH2O Sodium (137-145) mmol/L Potassium (3.4-5.0) mmol/L Chloride (98-107) mmol/L Carbon Dioxide (22-30) mmol/L Anion Gap (4-12) mmol/L BUN (9-20) mg/dL Creatinine (0.7-1.3) mg/dL Estim Creat Clear Calc ml/min Estimated GFR (59 - ) Glucose (65-110) mg/dL Lactic Acid (0.7-2.0) mmol/L Calcium (8.4-10.2) mg/dL Magnesium (1.6-2.3) mg/dL Total Bilirubin (0.2-1.3) mg/dL AST (17-59) U/L ALT (6-50) U/L Alkaline Phosphatase (38-126) U/L Troponin I (0.000-0.034) ng/mL NT-Pro-B Natriuret Pep (19.9-100) pg/mL Total Protein (6.3-8.2) g/dL Albumin (3.5-5.1) g/dL Lipase (23-300) U/L Procalcitonin ng/mL Urine Color Pending Urine Appearance Pending Urine pH Pending Ur Specific [place] Pending Urine Protein Pending Urine Glucose (UA) Pending Urine Ketones Pending Ur Blood (Man) Pending Urine Nitrate Pending Urine Bilirubin Pending Urine Urobilinogen Pending Leukocyte Esterase Rfl Pending Influenza A (RT-PCR) (Negative) Influenza B (RT-PCR) (Negative) RSV (RT-PCR) (Negative) SARS-CoV-2 RNA (RT-PCR) (Negative) <Marcos Burkett MD - Last Filed: 11/21/24 06:32> Lab Results 11/21/24 11/21/24 11/21/24 Range/Units 06:38 06:39 07:57 WBC 13.5 H (4.5-10.0) K/mm3 RBC 3.22 L (4.6-6.20) M/mm3 Hgb 11.4 L (14.0-18.0) g/dL Hct 35.6 L (42.0-52.0) % MCV 110.6 H (80-100) fl MCH 35.4 H (26-34) pg MCHC 32.0 (32-36) g/dl RDW 14.6 H (11.5-14.5) % Plt Count TNP MPV 10.5 H (7.4-10.4) fl Immature Gran % (Auto) 0.4 (0-0.5) % Neut % (Auto) 83.3 H (45.5-73.1) % Lymph % (Auto) 6.6 L (18.3-44.2) % [place] % (Auto) 9.1 H (2.6-8.5) % Eos % (Auto) 0.4 (0-4.4) % Baso % (Auto) 0.2 (0.2-1.2) % Lymph # (Auto) 0.89 L (0.9-3.2) K/mm3 [place] # (Auto) 1.2 H (0.1-0.6) K/mm3 Eos # (Auto) 0.1 (0-0.3) K/mm3 Baso # (Auto) 0.0 (0.0-0.1) K/mm3 Abs Immat Gran (auto) 0.05 H (0.00-0.031) K/mm3 Absolute Neuts (auto) 11.2 H (1.3-6.7) K/mm3 Absolute Nucleated RBC 0.000 (0.0-0.012) K/mm3 Nucleated RBC % 0.0 (0.0-0.2) % Platelet Estimate Adequate (Adequate) Target Cells 1+ Stomatocytes 1+ Schistocytes None seen PT 27.8 H D (11.1-14.7) Seconds INR 2.5 APTT 49.3 H (22.3-36.8) Seconds Expiratory Pressure 6 CMH2O Inspiratory Pressure 12 CMH2O Sodium 139 (137-145) mmol/L Potassium 4.8 (3.4-5.0) mmol/L Chloride 102 (98-107) mmol/L Carbon Dioxide 33 H (22-30) mmol/L Anion Gap 4 (4-12) mmol/L BUN 27 H (9-20) mg/dL Creatinine 0.90 (0.7-1.3) mg/dL Estim Creat Clear Calc 67 ml/min Estimated GFR > 60 (59 - ) Glucose 251 H (65-110) mg/dL Lactic Acid 2.0 (0.7-2.0) mmol/L Calcium 9.4 (8.4-10.2) mg/dL Magnesium 1.9 (1.6-2.3) mg/dL Total Bilirubin 0.6 (0.2-1.3) mg/dL AST 60 H (17-59) U/L ALT 61 H (6-50) U/L Alkaline Phosphatase 137 H (38-126) U/L Troponin I 0.030 (0.000-0.034) ng/mL NT-Pro-B Natriuret Pep 5710 H (19.9-100) pg/mL Total Protein 8.0 (6.3-8.2) g/dL Albumin 4.3 (3.5-5.1) g/dL Lipase 20 L (23-300) U/L Procalcitonin 0.6 ng/mL Urine Color Urine Appearance Urine pH Ur Specific [place] Urine Protein Urine Glucose (UA) Urine Ketones Ur Blood (Man) Urine Nitrate Urine Bilirubin Urine Urobilinogen Leukocyte Esterase Rfl Influenza A (RT-PCR) Negative (Negative) Influenza B (RT-PCR) Negative (Negative) RSV (RT-PCR) Negative (Negative) SARS-CoV-2 RNA (RT-PCR) Negative (Negative) 11/21/24 Range/Units 08:51 WBC (4.5-10.0) K/mm3 RBC (4.6-6.20) M/mm3 Hgb (14.0-18.0) g/dL Hct (42.0-52.0) % MCV (80-100) fl MCH (26-34) pg MCHC (32-36) g/dl RDW (11.5-14.5) % Plt Count MPV (7.4-10.4) fl Immature Gran % (Auto) (0-0.5) % Neut % (Auto) (45.5-73.1) % Lymph % (Auto) (18.3-44.2) % [place] % (Auto) (2.6-8.5) % Eos % (Auto) (0-4.4) % Baso % (Auto) (0.2-1.2) % Lymph # (Auto) (0.9-3.2) K/mm3 [place] # (Auto) (0.1-0.6) K/mm3 Eos # (Auto) (0-0.3) K/mm3 Baso # (Auto) (0.0-0.1) K/mm3 Abs Immat Gran (auto) (0.00-0.031) K/mm3 Absolute Neuts (auto) (1.3-6.7) K/mm3 Absolute Nucleated RBC (0.0-0.012) K/mm3 Nucleated RBC % (0.0-0.2) % Platelet Estimate (Adequate) Target Cells Stomatocytes Schistocytes PT (11.1-14.7) Seconds INR APTT (22.3-36.8) Seconds Expiratory Pressure CMH2O Inspiratory Pressure CMH2O Sodium (137-145) mmol/L Potassium (3.4-5.0) mmol/L Chloride (98-107) mmol/L Carbon Dioxide (22-30) mmol/L Anion Gap (4-12) mmol/L BUN (9-20) mg/dL Creatinine (0.7-1.3) mg/dL Estim Creat Clear Calc ml/min Estimated GFR (59 - ) Glucose (65-110) mg/dL Lactic Acid (0.7-2.0) mmol/L Calcium (8.4-10.2) mg/dL Magnesium (1.6-2.3) mg/dL Total Bilirubin (0.2-1.3) mg/dL AST (17-59) U/L ALT (6-50) U/L Alkaline Phosphatase (38-126) U/L Troponin I (0.000-0.034) ng/mL NT-Pro-B Natriuret Pep (19.9-100) pg/mL Total Protein (6.3-8.2) g/dL Albumin (3.5-5.1) g/dL Lipase (23-300) U/L Procalcitonin ng/mL Urine Color Pending Urine Appearance Pending Urine pH Pending Ur Specific [place] Pending Urine Protein Pending Urine Glucose (UA) Pending Urine Ketones Pending Ur Blood (Man) Pending Urine Nitrate Pending Urine Bilirubin Pending Urine Urobilinogen Pending Leukocyte Esterase Rfl Pending Influenza A (RT-PCR) (Negative) Influenza B (RT-PCR) (Negative) RSV (RT-PCR) (Negative) SARS-CoV-2 RNA (RT-PCR) (Negative) <Desi Chambers MD - Last Filed: 11/21/24 09:11> ABG Data ABG results: 11/21/24 07:57 Puncture Site Left brachial ABG pH 7.357 ABG pCO2 55.1 H ABG pO2 86.1 ABG PO2/FiO2 Ratio 2.87 ABG HCO3 30.2 H ABG O2 Saturation 96.0 ABG O2 Content 16.0 ABG Base Excess 3.6 A-a Gradient 63.1 Oxyhemoglobin 95.1 Total Hemoglobin 11.9 L O2 Delivery Device Non-invasive vent O2 Liters/Min 0.0 Vent Rate 12 FiO2 30 <Marcos Burkett MD - Last Filed: 11/21/24 06:32> 11/21/24 07:57 Puncture Site Left brachial ABG pH 7.357 ABG pCO2 55.1 H ABG pO2 86.1 ABG PO2/FiO2 Ratio 2.87 ABG HCO3 30.2 H ABG O2 Saturation 96.0 ABG O2 Content 16.0 ABG Base Excess 3.6 A-a Gradient 63.1 Oxyhemoglobin 95.1 Total Hemoglobin 11.9 L O2 Delivery Device Non-invasive vent O2 Liters/Min 0.0 Vent Rate 12 FiO2 30 <Desi Chambers MD - Last Filed: 11/21/24 09:11> Imaging Data Radiologist's impression: Impressions Chest X-Ray 11/21/24 07:07 IMPRESSION: Mild new patchy nodular infiltrate in the left mid and lower lung zones, suggesting pneumonia Severe COPD Chronic severe right upper lobe atelectasis and scarring, possible cavitation <Desi Chambers MD - Last Filed: 11/21/24 09:11> Critical Care Time Critical Care Time Critical Care Time: Yes <Marcos Burkett MD - Last Filed: 11/21/24 06:32> Total Critical Care Time: 30 <Marcos Burkett MD - Last Filed: 11/21/24 06:32> Discharge Plan Discharge Clinical Impression: Pneumonia, BiPAP (biphasic positive airway pressure) dependence COPD (chronic obstructive pulmonary disease) Qualifiers: COPD type: COPD with acute exacerbation Qualified Code(s): J44.1 - Chronic obstructive pulmonary disease with (acute) exacerbation <Marcos Burkett MD - Last Filed: 11/21/24 06:32> Patient Disposition: Still a Patient <Marcos Burkett MD - Last Filed: 11/21/24 06:32> Condition: Stable <Marcos Burkett MD - Last Filed: 11/21/24 06:32> Additional Instructions: admit to hospitalist <Marcos Burkett MD - Last Filed: 11/21/24 06:32> Patient Language: Ethiopian <Marcos Burkett MD - Last Filed: 01/04/25 06:32> Prescriptions: No Action Xarelto 20 mg tablet 20 mg PO QAM Rx Instructions: must administer with evening meal gabapentin [Neurontin] 300 mg capsule 300 mg PO QID cyanocobalamin (vitamin B-12) 1,000 mcg Tablet 1,000 mcg PO DAILY pantoprazole 40 mg tablet,delayed release (DR/EC) 40 mg PO Q12H nicotine 21 mg/24 hr Patch 24 Hour 1 patch TRANSDERMAL DAILY clofazimine 50 mg Capsule 100 mg PO DAILY metoprolol succinate 25 mg tablet extended release 24 hr 12.5 mg PO DAILY ondansetron 4 mg tablet,disintegrating 4 mg PO Q8H PRN (Reason: Nausea And Vomiting) omega-3 acid ethyl esters [Lovaza] 1 gram Capsule 1 cap PO DAILY cholecalciferol (vitamin D3) 25 mcg (1,000 unit) Tablet 50 mcg PO DAILY guaifenesin [Mucinex] 600 mg Tablet Extended Release 12hr 600 mg PO Q12H Jardiance 10 mg tablet 10 mg PO DAILY Trelegy Ellipta 200-62.5-25 mcg blister with device 1 inh INHALATION DAILY atorvastatin [Lipitor] 40 mg tablet 40 mg PO HS Rx Instructions: LAST REFILL UNTIL SEEN albuterol sulfate 90 mcg/actuation HFA aerosol inhaler 1 puff INHALATION Q4-6H PRN (Reason: Shortness Of Breath Or Wheezing) voriconazole 200 mg tablet 200 mg PO Q12H sucralfate 100 mg/mL Suspension 1,000 mg PO ACHS Qty: 300 0RF ciprofloxacin HCl [Cipro] 500 mg tablet 500 mg PO Q12H Qty: 10 0RF prednisone 10 mg tablet 10 mg PO DAILY Qty: 18 0RF Rx Instructions: Take 30 mg (3 tabs) daily for next 3 days, start tomorrow Then decrease to 20 mg (2 tabs) for next 3 days, Then decrease to 10 mg (1 tab) daily for next 3 days Then discontinue acyclovir 400 mg tablet 400 mg PO TID Qty: 90 0RF clopidogrel 75 mg tablet 75 mg PO DAILY Qty: 90 0RF insulin lispro [Humalog KwikPen Insulin] 100 unit/mL insulin pen 5 - 10 unit SUBCUT TIDWM Qty: 15 0RF montelukast [Singulair] 10 mg tablet 10 mg PO HS Qty: 30 0RF mycophenolate mofetil 500 mg tablet 1,000 mg PO Q12H Qty: 10 0RF Rx Instructions: Please call your Oncology to send prescription for this medication and adjust the dose tacrolimus [Prograf] 0.5 mg capsule 0.5 mg PO EVERY OTHER DAY Qty: 30 0RF albuterol sulfate 2.5 mg /3 mL (0.083 %) solution for nebulization 2.5 mg inhalation Q6H PRN (Reason: Shortness Of Breath) Qty: 180 0RF <Marcos Burkett MD - Last Filed: 11/21/24 06:32> Follow-up/Referrals: Kirt Lindsay, [Primary Care Provider] - <Marcos Burkett MD - Last Filed: 11/21/24 06:32>
[2024-11-21] MEDS: IPRATROPIUM 0.5 MG/ALBUTEROL SULFATE 2.5 MG AMPUL.NEB 3 ML INHALATION ×3 (06:44→20:04)
[2024-11-21 06:48] LABS: Basophils Percent Auto 0.2 % (0.2-1.2); Eosinophils Absolute Auto 0.1 K/mm3 (0-0.3); Eosinophils Percent Auto 0.4 % (0-4.4); Hematocrit 35.6 % (42.0-52.0); Hemoglobin 11.4 g/dL (14.0-18.0); Immature Granulocyte Absolute 0.05 K/mm3 (0.00-0.031); Immature Granulocyte Percent A 0.4 % (0-0.5); Lymphocytes Absolute Auto 0.89 K/mm3 (0.9-3.2); Lymphocytes Percent Auto 6.6 % (18.3-44.2); Mean Corpuscular Hemoglobin 35.4 pg (26-34); Mean Corpuscular Volume 110.6 fl (80-100); Mean Platelet Volume 10.5 fl (7.4-10.4); Monocytes Absolute Auto 1.2 K/mm3 (0.1-0.6); Monocytes Percent Auto 9.1 % (2.6-8.5); Neutrophils Absolute Auto 11.2 K/mm3 (1.3-6.7); Neutrophils Percent Auto 83.3 % (45.5-73.1); Red Blood Count 3.22 M/mm3 (4.6-6.20); Red Cell Distribution Width 14.6 % (11.5-14.5); White Blood Count 13.5 K/mm3 (4.5-10.0)
[2024-11-21] MEDS: FUROSEMIDE INJ 40 MG/4 ML VIAL IV PUSH (06:51)
[2024-11-21 06:58] LABS: INR 2.5; Prothrombin Time 27.8 Seconds (11.1-14.7)
[2024-11-21 06:59] LABS: Partial Thromboplastin Time 49.3 Seconds (22.3-36.8)
[2024-11-21 07:01] LABS: Alanine Aminotransferase 61 U/L (6-50); Albumin Level 4.3 g/dL (3.5-5.1); Alkaline Phosphatase 137 U/L (38-126); Anion Gap 4 mmol/L (4-12); Aspartate Amino Transferase 60 U/L (17-59); Bilirubin,Total 0.6 mg/dL (0.2-1.3); Blood Urea Nitrogen 27 mg/dL (9-20); Calcium 9.4 mg/dL (8.4-10.2); Carbon Dioxide 33 mmol/L (22-30); Chloride 102 mmol/L (98-107); Estimated CRCL calculation 67 ml/min; Estimated Glomerular Filt Rate > 60; Glucose 251 mg/dL (65-110); Lipase 20 U/L (23-300); Magnesium 1.9 mg/dL (1.6-2.3); Potassium 4.8 mmol/L (3.4-5.0); Sodium 139 mmol/L (137-145)
[2024-11-21] MEDS: methylPREDNISolone SOD SUCC 125 MG VIAL IV PUSH (07:02)
[2024-11-21 07:11] LABS: NT Pro B Type Natriuretic Pept 5710 pg/mL (19.9-100)
[2024-11-21 07:20] LABS: Platelet Estimate Adequate (Adequate); Schistocytes None Seen; Stomatocytes 1+; Target Cells 1+
[2024-11-21 07:27] LABS: Influenza A QL RT-PCR Negative (Negative); Influenza B QL RT-PCR Negative (Negative); Procalcitonin 0.6 ng/mL; RSV RNA, RT-PCR Negative (Negative); SARS-CoV-2 RNA PCR Negative (Negative)
[2024-11-21 08:10] LABS: Alveolar/Arterial O2 Gradient 63.1 mmHg; Base Excess ABG 3.6 mEq/l (+/-2.0); Fractional Inspired Oxygen 30 %; HCO3 ABG 30.2 mEq/l (22.0-26.0); Oxyhemoglobin 95.1 % THb (90.0-100.0); PCO2 ABG 55.1 mmHg (35.0-45.0); PO2 ABG 86.1 mmHg (80.0-100.0); PO2 FiO2 Ratio Arterial Blood 2.87 %; Total Hemoglobin 11.9 g/dL (12.0-18.0); pH ABG 7.357 (7.350-7.450)
[2024-11-21 08:11] LABS: Site Drawn LEFT BRACHIAL
[2024-11-21 08:12] LABS: Device NON-INVASIVE VENT; Non-Invasive Expiratory Pressure 6 CMH2O; Non-Invasive Inspiratory Pressure 12 CMH2O; Non-Invasive Vent Rate 12 /MIN
[2024-11-21 09:17] LABS: Add Urine Microscopic? NO; Appearance Urine Clear (Clear); Bilirubin Urine Negative (Negative); Blood Urine Negative (Negative); Color Urine Yellow (Yellow); Glucose Urine UA 2+ mg/dL (Negative); Ketones Urine Negative (Negative); Leukocyte Esterase Ur Negative LEU/UL (Negative); Nitrate Urine Negative (Negative); Protein Urine Negative (Negative); Urobilinogen Urine 0.2 mg/dL (<2.0)
[2024-11-21] MEDS: AZITHROMYCIN 500 MG/NS 250 ML 500 MG/250 ML BAG 250 MG IVPB (09:56)
[2024-11-21] MEDS: methylPREDNISolone SOD SUCC 125 MG VIAL 60 MG IV PUSH ×3 (12:31→23:35)
--- NOTE | 2024-11-21 13:05 | P.HP_ITS ---
H&P: HPI History of Present Illness Date/Time: 11/21/24 13:05 Chief Complaint: Shortness of breath. 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 The patient is a vague historian. He was recently admitted to [facility] under similar circumstances and was discharged home just a couple of days ago. The day following his discharge he once again became increasingly short of breath from baseline and has been worse since last night. Nebulizer treatments provided him little benefit. This morning he called 911 as he was extremely short of breath and on EMS arrival his SpO2 was in 80s on room air (he wears 5 L nasal cannula at nighttime and 3 L during the day as needed but he was not wearing it at that time). He has seen Dr. Cruz Del Valle and is also followed by infectious disease at [facility]. In the ED: He arrived with stable vital signs on CPAP. Labs were significant for WBC count of 13.5, hemoglobin 11.4, INR 2.5, carbon dioxide 33, BUN 27, glucose 251, lactic acid 2.0, AST 60, ALT 61, troponin 0.030, proBNP 5710. Respiratory panel was negative. Chest x-ray showed findings suggestive of pneumonia, severe COPD, and chronic severe right upper lobe atelectasis and scarring with possible cavitation seen on prior CT. Review of Systems Review of Systems: 12 systems were reviewed and are negativ e except for as per HPI. COUNTS INCLUDE 234 BEDS AT THE [facility] Past Medical History Medical History Pancreatitis Non-tuberculous mycobacterial pneumonia MSSA bacteremia Osteopenia Pseudomonas pneumonia Mycobacterium avium complex Chronic zrfwh-uzppwn-tutr disease Chronic respiratory failure with hypoxia, on home oxygen therapy Coronary artery disease Pill esophagitis ST elevation (STEMI) myocardial infarction (12/30/22) Chronic anticoagulation Immunocompromised patient patient on anti rejection medications Positive nasal culture for methicillin resistant Staphylococcus aureus Deep venous thrombosis Insulin dependent type 2 diabetes mellitus Chronic obstructive pulmonary disease Sciatica Eczema Anxiety Depression Peyronie's disease Emphysema/COPD Acute myeloid leukemia (2008) status post hematopoietic stem cell transplantation with resultant chronic cqmgw-ssjlsu-xwlr disease. 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 Code status: Full code. Years smoked: 44 Smoking status: Current some day smoker Tobacco type: cigarettes Smoking end date: 08/07/22 Additional smoking assessment comments: on nicotine patches, states he is currently on patches Alcohol intake: former Substance use: never Substance use type: does not use Do You Feel Safe in your Home?: Yes Lack of Transportation: No Lack of Food: Never True Current Housing: I Have Housing Concerned About Future Housing: No Difficulty Paying Gas/Electric Bills: No Difficulty Paying for Meds: No Currently Unemployed: No Education: Trade/Vocational Certificate Difficulty w/ Childcare or Family Care: No Living arrangements: with friend(s) Additional living arrangements comments: He lives with his roommate in [place]. Occupation/Education: unemployed Spiritual care concerns: No Agree to blood products: Yes Meds Home Medications and Allergies Home Medications ?Medication ?Instructions ?Recorded ?Confirmed ?Type rivaroxaban 20 mg tablet (Xarelto) 20 mg PO QAM 02/06/23 11/21/24 History acyclovir 400 mg tablet 400 mg PO TID #90 tabs 01/28/24 11/21/24 Rx clopidogrel 75 mg tablet 75 mg PO DAILY #90 tabs 01/28/24 11/21/24 Rx montelukast 10 mg tablet 10 mg PO HS #30 tabs 01/28/24 11/21/24 Rx (Singulair) mycophenolate mofetil 500 mg tablet 1,000 mg (2 x 500 mg) PO Q12H #10 01/28/24 11/21/24 Rx tabs tacrolimus 0.5 mg capsule, 0.5 mg PO EVERY OTHER DAY #30 caps 01/28/24 11/21/24 Rx immediate-release (Prograf) albuterol sulfate 90 mcg/actuation 1 puff inhalation Q4-6H PRN 10/23/24 11/21/24 History aerosol inhaler Shortness Of Breath Or Wheezing ondansetron 4 mg disintegrating 4 mg PO Q8H PRN Nausea And Vomiting 10/23/24 11/21/24 History tablet pantoprazole 40 mg tablet,delayed 40 mg PO Q12H 10/23/24 11/21/24 History release albuterol sulfate 2.5 mg/3 mL 2.5 mg (3 mL) inhalation Q6H PRN 11/13/24 11/21/24 Rx (0.083 %) solution for nebulization Shortness Of Breath #180 mL Allergies Allergy/AdvReac Type Severity Reaction Status Date / Time adhesive tape AdvReac Unknown PAPER Verified 10/23/24 05:58 TAPE,REDNESS AND IRRITATION Vital Signs Vital Signs - 24 hr 11/21/24 06:14 11/21/24 06:21 11/21/24 06:21 Temperature 98.4 F Pulse Rate 124 H 119 H Respiratory Rate 25 H Blood Pressure 143/76 H Pulse Oximetry 90 90 Oxygen Delivery BiPAP BiPAP Oxygen Flow Rate 15 15 11/21/24 06:22 11/21/24 06:41 11/21/24 06:45 Temperature Pulse Rate 123 H 107 H 104 H Respiratory Rate 26 H 18 100 H Blood Pressure 143/76 H Pulse Oximetry 90 100 Oxygen Delivery BiPAP Oxygen Flow Rate 11/21/24 06:53 11/21/24 06:55 11/21/24 07:00 Temperature Pulse Rate 106 H 105 H Respiratory Rate 18 18 33 H Blood Pressure 110/78 Pulse Oximetry Oxygen Delivery Oxygen Flow Rate 11/21/24 07:03 11/21/24 07:15 11/21/24 07:16 Temperature Pulse Rate 103 H 100 102 H Respiratory Rate 36 H 21 H 20 Blood Pressure 115/67 105/71 Pulse Oximetry 100 Oxygen Delivery Oxygen Flow Rate 11/21/24 07:31 11/21/24 07:59 11/21/24 08:16 Temperature Pulse Rate 101 H 101 H 104 H Respiratory Rate 19 15 25 H Blood Pressure 104/78 103/69 Pulse Oximetry 99 100 99 Oxygen Delivery BiPAP Oxygen Flow Rate 11/21/24 09:46 11/21/24 10:31 11/21/24 10:46 Temperature Pulse Rate 91 99 94 Respiratory Rate 15 16 15 Blood Pressure 119/77 112/79 96/71 L Pulse Oximetry 100 99 99 Oxygen Delivery Oxygen Flow Rate 11/21/24 10:59 Temperature Pulse Rate 98 Respiratory Rate 15 Blood Pressure Pulse Oximetry 100 Oxygen Delivery BiPAP Oxygen Flow Rate Exam Narrative: General: Chronically ill-appearing gentleman sitting up in bed in no distress. Somewhat disheveled. He is off BiPAP. Weight: 60 kilograms. BMI: 18.4. HEENT: PERRL, EOMI. Sclera anicteric. Oral mucosa is tacky. Edentulous. Neck: Supple. No lymphadenopathy or JVD. Respiratory: Respirations are nonlabored and he is able to speak in full sentences. Lung sounds are diminished throughout with diffuse expiratory wheezing and prolonged expiratory phase. Occasional rhonchi which clear with cough. Cardiovascular: Regular rate and rhythm with S1-S2. Gastrointestinal: Abdomen is soft, nontender, and nondistended with positive bowel sounds. Skin: Warm and dry. Faint hyperpigmentation of the lower legs bilaterally. Extremities: No cyanosis, clubbing, or edema. Radial and pedal pulses intact. Negative Karina sign bilaterally. Neurological: Alert. Cranial nerves 2-12 are grossly intact. No gross focal deficits to casual conversation. Psychiatric: Cooperative with intense mood. H&P: Results Labs Labs: Short CBC 11/21/24 Range/Units 06:38 WBC 13.5 H (4.5-10.0) K/mm3 Hgb 11.4 L (14.0-18.0) g/dL Hct 35.6 L (42.0-52.0) % Plt Count TNP [facility] 11/21/24 06:38 Sodium 139 Potassium 4.8 Chloride 102 Carbon Dioxide 33 H BUN 27 H Creatinine 0.90 Glucose 251 H Calcium 9.4 Cardiac Enzymes 11/21/24 11/21/24 Range/Units 06:38 09:47 Troponin I 0.030 0.110 H* D (0.000-0.034) ng/mL Liver Function 11/21/24 Range/Units 06:38 Total Bilirubin 0.6 (0.2-1.3) mg/dL AST 60 H (17-59) U/L ALT 61 H (6-50) U/L Alkaline Phosphatase 137 H (38-126) U/L Albumin 4.3 (3.5-5.1) g/dL Urine 11/21/24 Range/Units 08:51 Urine Color Yellow (Yellow) Urine Appearance Clear (Clear) Urine pH 5.0 (5.0-9.0) Ur Specific [place] 1.010 (1.001-1.035) Urine Protein Negative (Negative) mg/dL Urine Glucose (UA) 2+ H (Negative) mg/dL Impressions Chest X-Ray 11/21/24 07:07 IMPRESSION: 1. Mild new patchy nodular infiltrate in the left mid and lower lung zones, suggesting pneumonia. 2. Severe COPD. 3. Chronic severe right upper lobe atelectasis and scarring, possible cavitation. Assessment and Plan Assessment and plan (1) Acute and chronic respiratory failure with hypoxia: Code(s): J96.21 - Acute and chronic respiratory failure with hypoxia Status: Acute (2) Pneumonia: Qualifiers: Laterality: bilateral Lung location: lower lobe of lung Pneumonia type: due to unspecified organism Qualified Code(s): J18.9 - Pneumonia, unspecified organism Code(s): J18.9 - Pneumonia, unspecified organism Status: Acute (3) Elevated troponin: Code(s): R79.89 - Other specified abnormal findings of blood chemistry Status: Acute (4) Chronic fvbwk-xzwzfd-skmf disease: Code(s): D89.811 - Chronic hdrqh-cwnbzi-iccj disease Status: Acute (5) Immunocompromised patient: Code(s): D84.9 - Immunodeficiency, unspecified Status: Acute (6) Insulin dependent type 2 diabetes mellitus: Code(s): E11.9 - Type 2 diabetes mellitus without complications; Z79.4 - long term care phlebotomist (current) use of insulin Status: Acute (7) Chronic anticoagulation: Code(s): Z79.01 - long term care phlebotomist (current) use of 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 Status: Acute Plan The patient presented to the emergency department for evaluation of worsening shortness of breath over the last day as detailed in HPI. Labs, imaging, EKG, and all reports were personally reviewed. He was just discharged from [facility] a couple of days ago and records have been requested. I presume he was treated for pneumonia and COPD at that time however he does not remember what he was diagnosed with or treated for unfortunately. He has been weaned from BiPAP and is tolerating nasal cannula at a couple of liters without evidence of distress. Continue scheduled bronchodilators and steroids given significant wheezing. He was started on broad-spectrum antibiotics which will continue for now, pending records from [place]. Pulmonology has been consulted given his complicated medical history. Troponin elevation is likely due to hypoxia and tachycardia though will consult Cardiology for their input. Continue anti-rejection medications. Initiate sliding scale insulin, Accu-Cheks, and hypoglycemic protocol. Check hemoglobin A1c. His home medications will be reviewed and resumed as appropriate. Findings and treatment plan were discussed with the patient. Questions were solicited and answered to satisfaction. The patient's medical management will be taken over by the hospitalist team in a.m. Quality VTE Prophylaxis VTE prophylaxis: pharmacologic ordered (on rivaroxaban) The patient has been admitted under observation status. Hospitalist MIPS Advance Care Plan I have confirmed that the patient's Advanced Care Plan is present, code status is documented, or surrogate decision maker is listed in patient medical record.: Yes Medication Reconciliation I have utilized all available resources to obtain, update and review the patients current medications (includes all prescriptions, OTC, herbals, cannabis, and nutritional supplements).: Yes
[2024-11-21 15:18] LABS: Hemoglobin A1C 6.2 % (<5.7)
[2024-11-21] MEDS: CEFEPIME 2 GM/NS 50 ML 2 GM/50 ML BAG IVPB ×2 (15:20→21:05)
[2024-11-21 15:27] LABS: Troponin I 0.106 ng/mL (0.000-0.034)
[2024-11-21] MEDS: VANCOMYCIN 1,500 MG/NS 500 ML 1,500 MG/500 ML BAG 250 MG IVPB (16:39)
[2024-11-21 17:11] LABS: Glucose Point of Care 394 mg/dl (65-105)
--- NOTE | 2024-11-21 17:13 | P.CONCA_ITS ---
Assessment and Plan Assessment and plan (1) Acute and chronic respiratory failure with hypoxia: Code(s): J96.21 - Acute and chronic respiratory failure with hypoxia Status: Acute Assessment and Plan: Within this is an exacerbation of his COPD is he does as well currently has benefitted from being on BiPAP Sees Dr. Del Valle who is his hotel assistant general manager here in the hospital Has been utilizing his home oxygen concentrator at a higher level to try to get better breathing Currently has been put on steroids and antibiotics (2) Pneumonia: Qualifiers: Laterality: bilateral Lung location: lower lobe of lung Pneumonia type: due to unspecified organism Qualified Code(s): J18.9 - Pneumonia, unspecified organism Code(s): J18.9 - Pneumonia, unspecified organism Status: Acute Assessment and Plan: Likely underlying issue causing exacerbation of his acute on chronic respiratory failure with hypoxia (3) Elevated troponin: Code(s): R79.89 - Other specified abnormal findings of blood chemistry Status: Acute Assessment and Plan: EKG does not suggest ACS changes he has a known history of coronary artery disease as well as LV dysfunction with an EF of 30% Elevated troponin is noted however may be multifactorial in particular respiratory distressed and resting tachycardia as well as hypoxemia which may be triggering this I doubt that this requires emergent cardiac catheterization (4) Chronic anticoagulation: Code(s): Z79.01 - intermediate (current) use of 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 Status: Acute Assessment and Plan: Has a history of pulmonary embolism has been on Xarelto likely due to a benefit for him to continue on this indefinitely as he has limited functional ability and may have an increased risk of having recurrent DVT PE Plan Elevated troponin-multifactorial likely related to tachycardia and respiratory distress not a candidate for cardiac catheterization at present his EKG demonstrates no new ACS changes and his troponins are likely going to be flat within setting of his LV dysfunction LV dysfunction- history of the EF of 30% based on prior echocardiogram as noted at [facility] as noted above Chronic systolic CHF-related to his ejection fraction 30% he also has valvular mitral regurgitation would use IV Lasix for diuresis as tolerated BNP was noted to be mildly elevated at 5710 Hypoxemic respiratory distress continue with BiPAP I suspect that his COPD is severe and will require long-term noninvasive ventilator support until his infectious process is cleared Pulmonary embolism-prior history has been on Xarelto for anticoagulation History of Present Illness History of Present Illness Consult date/time: 11/21/24 17:13 Reason For Visit: pneumonia, COPD exacerbation Narrative: 59-year-old male with a history of COPD on home oxygen concentrator prior history of PE on Xarelto prior pneumonia with Pseudomonas and EDISON has a history of AML prior history of CAD with STEMI with PCI to the RCA in 2022 had been on aspirin and Plavix where he has undergone [facility] CHF with echocardiogram dated July 2024 showing EF of 30% at [facility] he had [id number] MR mild RV cavity enlargement with moderate dysfunction diabetes came into the ER with shortness of breath intermittently still smoking he has had progressive shortness of breath over the past [address] Del Valle who is a hotel assistant general manager has been maintained on steroids and albuterol treatments does not have BiPAP at home He was discharged from [facility] on November 18, 2024 where he recently was admitted there for food impaction of his esophagus while eating chicken and spaghetti on November 14 pre was diagnosed with stasis esophagitis and was considered for getting dilatation of his esophagus as an outpatient Work consult for elevated troponins that were noted and an elevated BNP of 5710. Some of the elevated troponin may be related to the respiratory distress the tachycardia the known LV dysfunction and prior history of known coronary artery disease however the EKG that was performed demonstrated him to be in sinus tachycardia rate of 114 there were no ACS changes noted. Currently denies episodes of chest pains were to be consistent with what he had had with his prior SC feels that his entire presentation is related to COPD exacerbation currently is utilizing BiPAP notices that his breathing has remarkably improved since he has arrived he is additionally on multiple antibiotics including Zithromax cefepime vancomycin and IV steroids [facility] Past Medical History Medical History (Updated 11/21/24 @ 14:33 by Leyda Davila PA-C) Pancreatitis Non-tuberculous mycobacterial pneumonia MSSA bacteremia Osteopenia Pseudomonas pneumonia Mycobacterium avium complex Chronic jlqpw-fvukua-ypax disease Chronic respiratory failure with hypoxia, on home oxygen therapy Coronary artery disease Pill esophagitis ST elevation (STEMI) myocardial infarction (12/30/22) Chronic anticoagulation Immunocompromised patient patient on anti rejection medications Positive nasal culture for methicillin resistant Staphylococcus aureus Deep venous thrombosis Insulin dependent type 2 diabetes mellitus Chronic obstructive pulmonary disease Sciatica Eczema Anxiety Depression Peyronie's disease Emphysema/COPD 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 Code status: Full code. Years smoked: 44 Smoking status: Current some day smoker Tobacco type: cigarettes Smoking end date: 08/07/22 Additional smoking assessment comments: on nicotine patches, states he is currently on patches Alcohol intake: never Substance use: never Substance use type: does not use Do You Feel Safe in your Home?: Yes Lack of Transportation: No Lack of Food: Never True Current Housing: I Have Housing Concerned About Future Housing: No Difficulty Paying Gas/Electric Bills: YES Difficulty Paying for Meds: No Currently Unemployed: No Education: High School Diploma/GED Difficulty w/ Childcare or Family Care: No Living arrangements: with friend(s) Additional living arrangements comments: He lives with his roommate in [place]. Occupation/Education: unemployed Spiritual care concerns: No Agree to blood products: Yes Meds Home Medications and Allergies Home Medications ?Medication ?Instructions ?Recorded ?Confirmed ?Type rivaroxaban 20 mg tablet (Xarelto) 20 mg PO QAM 02/06/23 11/21/24 History acyclovir 400 mg tablet 400 mg PO TID #90 tabs 01/28/24 11/21/24 Rx clopidogrel 75 mg tablet 75 mg PO DAILY #90 tabs 01/28/24 11/21/24 Rx montelukast 10 mg tablet 10 mg PO HS #30 tabs 01/28/24 11/21/24 Rx (Singulair) mycophenolate mofetil 500 mg tablet 1,000 mg (2 x 500 mg) PO Q12H #10 01/28/24 11/21/24 Rx tabs tacrolimus 0.5 mg capsule, 0.5 mg PO EVERY OTHER DAY #30 caps 01/28/24 11/21/24 Rx immediate-release (Prograf) albuterol sulfate 90 mcg/actuation 1 puff inhalation Q4-6H PRN 10/23/24 11/21/24 History aerosol inhaler Shortness Of Breath Or Wheezing ondansetron 4 mg disintegrating 4 mg PO Q8H PRN Nausea And Vomiting 10/23/24 11/21/24 History tablet pantoprazole 40 mg tablet,delayed 40 mg PO Q12H 10/23/24 11/21/24 History release albuterol sulfate 2.5 mg/3 mL 2.5 mg (3 mL) inhalation Q6H PRN 11/13/24 11/21/24 Rx (0.083 %) solution for nebulization Shortness Of Breath #180 mL Allergies Allergy/AdvReac Type Severity Reaction Status Date / Time adhesive tape AdvReac Unknown PAPER Verified 10/23/24 05:58 TAPE,REDNESS AND IRRITATION Vital Signs Vital Signs - 24 hr 11/21/24 06:14 11/21/24 06:21 11/21/24 06:21 Temperature 36.9 C Pulse Rate 124 H 119 H Respiratory Rate 25 H Blood Pressure 143/76 H Pulse Oximetry 90 90 Oxygen Delivery BiPAP BiPAP Oxygen Flow Rate 15 15 11/21/24 06:22 11/21/24 06:41 11/21/24 06:45 Temperature Pulse Rate 123 H 107 H 104 H Respiratory Rate 26 H 18 100 H Blood Pressure 143/76 H Pulse Oximetry 90 100 Oxygen Delivery BiPAP Oxygen Flow Rate 11/21/24 06:53 11/21/24 06:55 11/21/24 07:00 Temperature Pulse Rate 106 H 105 H Respiratory Rate 18 18 33 H Blood Pressure 110/78 Pulse Oximetry Oxygen Delivery Oxygen Flow Rate 11/21/24 07:03 11/21/24 07:15 11/21/24 07:16 Temperature Pulse Rate 103 H 100 102 H Respiratory Rate 36 H 21 H 20 Blood Pressure 115/67 105/71 Pulse Oximetry 100 Oxygen Delivery Oxygen Flow Rate 11/21/24 07:31 11/21/24 07:59 11/21/24 08:16 Temperature Pulse Rate 101 H 101 H 104 H Respiratory Rate 19 15 25 H Blood Pressure 104/78 103/69 Pulse Oximetry 99 100 99 Oxygen Delivery BiPAP Oxygen Flow Rate 11/21/24 09:46 11/21/24 10:31 11/21/24 10:46 Temperature Pulse Rate 91 99 94 Respiratory Rate 15 16 15 Blood Pressure 119/77 112/79 96/71 L Pulse Oximetry 100 99 99 Oxygen Delivery Oxygen Flow Rate 11/21/24 10:47 11/21/24 10:59 11/21/24 12:08 Temperature Pulse Rate 97 98 90 Respiratory Rate 16 15 16 Blood Pressure Pulse Oximetry 98 100 97 Oxygen Delivery BiPAP Oxygen Flow Rate 11/21/24 12:15 11/21/24 12:16 11/21/24 13:10 Temperature Pulse Rate 89 85 85 Respiratory Rate 15 15 14 Blood Pressure 109/71 Pulse Oximetry 98 98 99 Oxygen Delivery Oxygen Flow Rate 11/21/24 13:33 11/21/24 13:40 11/21/24 13:48 Temperature Pulse Rate 93 86 94 Respiratory Rate 15 21 H 21 H Blood Pressure Pulse Oximetry 99 Oxygen Delivery BiPAP Oxygen Flow Rate 11/21/24 14:24 11/21/24 14:30 11/21/24 14:45 Temperature Pulse Rate 104 H 119 H 110 H Respiratory Rate 18 28 H 21 H Blood Pressure Pulse Oximetry Oxygen Delivery Oxygen Flow Rate 11/21/24 15:00 11/21/24 15:15 11/21/24 15:30 Temperature Pulse Rate 104 H 92 94 Respiratory Rate 17 15 26 H Blood Pressure Pulse Oximetry 94 Oxygen Delivery Oxygen Flow Rate 11/21/24 15:59 11/21/24 16:10 Temperature 36.5 C Pulse Rate 98 Respiratory Rate 22 H 29 H Blood Pressure 119/76 Pulse Oximetry 100 100 Oxygen Delivery BiPAP Oxygen Flow Rate Exam 2 Const: Other: Currently appears without distress is wearing a BiPAP is able to speak in full sentences with the BiPAP on Neck: Other: Unable to assess her JVD Resp: Other: Decreased breath sounds bilaterally Used air movement No audible wheezes There are scattered coarse breath sounds noted Cardio: Other: S1-S2 with a tachycardic rhythm soft systolic murmur difficulty here with his breathing Extrem: Other: Trace edema bilaterally Results Labs and Meds 11/21/24 06:38 11/21/24 06:38 Lab results: Cardiac Enzymes 11/21/24 11/21/24 11/21/24 Range/Units 06:38 09:47 14:47 AST 60 H (17-59) U/L Troponin I 0.030 0.110 H* D 0.106 H* (0.000-0.034) ng/mL Coagulation 11/21/24 Range/Units 06:39 PT 27.8 H D (11.1-14.7) Seconds APTT 49.3 H (22.3-36.8) Seconds CBC 11/21/24 Range/Units 06:38 WBC 13.5 H (4.5-10.0) K/mm3 RBC 3.22 L (4.6-6.20) M/mm3 Hgb 11.4 L (14.0-18.0) g/dL Hct 35.6 L (42.0-52.0) % Plt Count TNP Lymph # (Auto) 0.89 L (0.9-3.2) K/mm3 [place] # (Auto) 1.2 H (0.1-0.6) K/mm3 Eos # (Auto) 0.1 (0-0.3) K/mm3 Baso # (Auto) 0.0 (0.0-0.1) K/mm3 Comprehensive Metabolic Panel 11/21/24 Range/Units 06:38 Sodium 139 (137-145) mmol/L Potassium 4.8 (3.4-5.0) mmol/L Chloride 102 (98-107) mmol/L Carbon Dioxide 33 H (22-30) mmol/L BUN 27 H (9-20) mg/dL Creatinine 0.90 (0.7-1.3) mg/dL Glucose 251 H (65-110) mg/dL Calcium 9.4 (8.4-10.2) mg/dL AST 60 H (17-59) U/L ALT 61 H (6-50) U/L Alkaline Phosphatase 137 H (38-126) U/L Total Protein 8.0 (6.3-8.2) g/dL Albumin 4.3 (3.5-5.1) g/dL Intake and Output 11/21/24 11/21/24 11/21/24 07:59 15:59 23:59 Intake Total 350 Output Total 700 Balance -350 Intake: IV 350 Azithromycin 500 mg/Ns 250 ml 250 500 mg In 250 ml @ 250 mls/hr IVPB Q24H [facility] Rx#:[id number] Cefepime 2 gm/Ns 50 ml 2 gm In 50 50 ml @ 100 mls/hr IVPB Q8H [facility] Rx#:[id number] cefTRIAXone 1 GM/NS 50 ML 1 gm 50 In 50 ml @ 100 mls/hr IVPB Q24H [facility] Rx#:[id number] Output: Urine 700 Patient Weight 11/21/24 23:59 Weight 60 kg
--- NOTE | 2024-11-21 17:18 | PC.NURSE ---
Patient arrived on bipap. A&O4. Refusing insulin. Refusing a skin assessment.
[2024-11-21 20:13] LABS: Glucose Point of Care 361 mg/dl (65-105)
[2024-11-21] MEDS: INSULIN ASPART (*BKC) 100 UNITS/ML SUB-Q (21:05)
--- NOTE | 2024-11-21 21:25 | ECG_ITS ---
Test Date: 2024-11-21 21:36:08 Measurements Intervals [place] Rate: 100 P: 81 [place]: 148 QRS: 94 QRSD: 94 T: -35 QT: 326 QTc: 422 Interpretive Statements SINUS TACHYCARDIA WITH OCCASIONAL ECTOPIC PREMATURE COMPLEXES BORDERLINE RIGHT AXIS DEVIATION [QRS AXIS > 90] NONSPECIFIC ST AND T WAVE ABNORMALITY WARNING: DATA QUALITY MAY AFFECT INTERPRETATION Compared to ECG 11/21/2024 06:28:13 NO SIGNIFICANT CHANGES Electronically Signed On 11-25-2024 15:59:42 METER READING CLERK by Chin La M.D.
[2024-11-21] MEDS: mycophenolate mofetiL 250 MG CAPSULE 1000 MG PO (21:59)
[2024-11-21] MEDS: MONTELUKAST SODIUM 10 MG TABLET PO (22:00)
[2024-11-21] MEDS: ACYCLOVIR 400 MG TABLET PO (22:00)
[2024-11-21] MEDS: HYDROcodone/acetaminophen (*CRX) 5-325 MG TABLET 1 TAB PO (22:00)
[2024-11-21] MEDS: PANTOPRAZOLE 40 MG TABLET PO (22:00)
[2024-11-21 22:24] LABS: Troponin I 0.068 ng/mL (0.000-0.034)
[2024-11-22] VITALS (26 sets, daily range): BP systolic 109–135; BP diastolic 61–81; PULSE 66–120; RESP 14–22; TEMP 36.5–36.9; O2SAT 97–100
[2024-11-22 01:14] LABS: Glucose Point of Care 367 mg/dl (65-105)
[2024-11-22 02:16] LABS: Glucose Point of Care 325 mg/dl (65-105)
[2024-11-22] MEDS: IPRATROPIUM 0.5 MG/ALBUTEROL SULFATE 2.5 MG AMPUL.NEB 3 ML INHALATION ×4 (02:19→21:06)
[2024-11-22] MEDS: CEFEPIME 2 GM/NS 50 ML 2 GM/50 ML BAG IVPB ×3 (05:15→21:35)
[2024-11-22] MEDS: methylPREDNISolone SOD SUCC 125 MG VIAL 60 MG IV PUSH (05:16)
[2024-11-22] MEDS: ACYCLOVIR 400 MG TABLET PO ×3 (05:16→21:07)
[2024-11-22 05:19] LABS: Basophils Percent Auto 0.1 % (0.2-1.2); Hematocrit 29.3 % (42.0-52.0); Hemoglobin 9.5 g/dL (14.0-18.0); Immature Granulocyte Absolute 0.08 K/mm3 (0.00-0.031); Immature Granulocyte Percent A 0.6 % (0-0.5); Lymphocytes Absolute Auto 0.82 K/mm3 (0.9-3.2); Lymphocytes Percent Auto 6.2 % (18.3-44.2); Mean Corpuscular HGB Conc 32.4 g/dl (32-36); Mean Corpuscular Hemoglobin 34.8 pg (26-34); Mean Corpuscular Volume 107.3 fl (80-100); Mean Platelet Volume 11.2 fl (7.4-10.4); Monocytes Absolute Auto 0.3 K/mm3 (0.1-0.6); Monocytes Percent Auto 2.3 % (2.6-8.5); Neutrophils Percent Auto 90.8 % (45.5-73.1); Platelet Count Result 313 k/mm3 (150-375); Red Blood Count 2.73 M/mm3 (4.6-6.20); Red Cell Distribution Width 14.6 % (11.5-14.5); White Blood Count 13.3 K/mm3 (4.5-10.0)
[2024-11-22 05:39] LABS: Alanine Aminotransferase 42 U/L (6-50); Albumin Level 3.5 g/dL (3.5-5.1); Alkaline Phosphatase 116 U/L (38-126); Anion Gap 3 mmol/L (4-12); Aspartate Amino Transferase 32 U/L (17-59); Bilirubin,Total 0.5 mg/dL (0.2-1.3); Blood Urea Nitrogen 32 mg/dL (9-20); Calcium 8.6 mg/dL (8.4-10.2); Carbon Dioxide 29 mmol/L (22-30); Chloride 101 mmol/L (98-107); Estimated CRCL calculation 84 ml/min; Estimated Glomerular Filt Rate > 60; Glucose 288 mg/dL (65-110); Magnesium 2.1 mg/dL (1.6-2.3); Sodium 133 mmol/L (137-145)
[2024-11-22 05:53] LABS: Hypochromasia 1+; Platelet Estimate Adequate (Adequate); Schistocytes None Seen
[2024-11-22 05:54] LABS: Macrocytosis 1+ (NORMAL)
[2024-11-22 09:26] LABS: Glucose Point of Care 281 mg/dl (65-105)
[2024-11-22] MEDS: PANTOPRAZOLE 40 MG TABLET PO ×2 (09:27→21:07)
[2024-11-22] MEDS: INSULIN ASPART (*BKC) 100 UNITS/ML SUB-Q ×2 (09:27→21:05)
[2024-11-22] MEDS: mycophenolate mofetiL 250 MG CAPSULE 1000 MG PO (09:27)
[2024-11-22] MEDS: CLOPIDOGREL BISULFATE 75 MG TABLET PO (09:27)
[2024-11-22] MEDS: AZITHROMYCIN 500 MG/NS 250 ML 500 MG/250 ML BAG 250 MG IVPB (09:28)
[2024-11-22] MEDS: VANCOMYCIN 1,250 MG/NS 250 ML 1,250 MG/250 ML BAG 166.67 MG IVPB (09:28)
--- NOTE | 2024-11-22 11:20 | PM.CNPUL ---
Assessment and Plan Assessment and plan (1) COPD (chronic obstructive pulmonary disease): Qualifiers: COPD type: COPD with acute exacerbation Qualified Code(s): J44.1 - Chronic obstructive pulmonary disease with (acute) exacerbation Code(s): J44.9 - Chronic obstructive pulmonary disease, unspecified Status: Acute Assessment and Plan: GOLD grade 3 group E COPD 44 pack year tobacco use, currently smoking, PFTs 08/15/2023 with FEV1 1.32 L, 35% predicted, ratio 36%. No bronchodilator response, hyperinflation, severely decreased DLCO that remain moderately decreased when adjusted for alveolar volume. CT scan of the chest 10/23/2024 with severe panlobular emphysema. Chronic hypoxemic respiratory failure requiring 5 L nasal cannula at night. Currently the patient states he has worsening shortness of breath at rest and dyspnea on exertion with no fever, chills, rigors, change in cough or change in phlegm. He also had worsening oxygenation. Patient was treated with bronchodilators and steroids and says that he is much better after 24 hours of treatment. COVID, influenza, RSV RT PCR studies negative. Plan: I will treat for COPD exacerbation although he has a somewhat atypical presentation without any change in cough or change in phlegm production. I will also treat him for possible pneumonia. I will decrease his Solu-Medrol to 20 mg IV q.6 hours, I will continue bronchodilators with DuoNebs q.6 hours. Continue montelukast 10 a day. The patient has a history of Pseudomonas in his phlegm and currently is on cefepime, vancomycin and azithromycin all day 2. I will continue today. I will send a respiratory pathogen panel to [facility]. Regarding his immunosuppression for his bone marrow transplant and chronic mkgmy-zhpmcn-wguk disease I will hold his mycophenolate and his tacro Lyme is until he has made continued clinical improvement. I will perform an overnight oximetry on 3 L nasal cannula. Discussed with Dr. Sutherland. Will follow with you. (2) Mycobacterium avium complex: Code(s): A31.0 - Pulmonary mycobacterial infection Status: Acute Assessment and Plan: The patient tells me he has completed all treatment for his pulmonary MAC disease that is being managed through [facility]. Last note from [facility] discharge summary states that the patient should still be on azithromycin 500 q.day, ethambutol 612 100 q.day and amikacin 700 Saturday and Saturday. Patient is also listed as taking clofazamine. Will try to obtain [facility] notes. (3) Chronic lwotw-vphyoq-mdux disease: Code(s): D89.811 - Chronic pqwof-feownc-kvng disease Status: Acute Assessment and Plan: Patient is on mycophenolate 1 g BD he 0 b.i.d. and tacrolimus 0.5 mg PO Q M,W,F Plan: as mentioned above the patient may have a bacterial pneumonia and at this time will hold the mycophenolate and tacro norman. He is on steroids for possible COPD exacerbation as Solu-Medrol 60 q.6. History of Present Illness History of Present Illness Consult date: 11/22/24 Chief complaint: pneumonia, COPD exacerbation Narrative: 11/22/2024: this is a new pulmonary consult for shortness of breath. 59-year-old with a history of AML status post bone marrow transplant with voqio-ucppvm-elfu disease, congestive heart failure, COPD, non tuberculous mycobacterial lung disease. Patient was followed in the Pulmonary Clinic until 07/18/2023 when the complexity of his bone marrow transplant, COPD and non tuberculous mycobacterial lung disease warranted referral to [facility]. He has been followed by [facility] for many years. Last note I have from [facility]. 08/18/2024: [facility] clinic follow-up: presents today for post hospital follow-up. 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 His amikacin has been on hold, last dose on Saturday, due to increase in his creatinine. Home health is not drawn amikacin peaks or trough since discharge. He reports no hearing changes. He remains on azithromycin and ethambutol. Denies any vision changes. No fever chills or night sweats. Chronic shortness of breath that is at his baseline. He has a good appetite and is eating well. Labs: Creatinine 0.78 on 08/18/2024. Assessment and plan: Current NTMLD regimen: Azithromycin 500 p.o. q.day started on 07/07/2024. Ethambutol 1200 mg p.o. q.day started on 07/07/2024. Amikacin 700 mg IV on Saturday and Fridays started 07/22/2024, currently on hold. Clinically doing well on exam. Respiratory symptoms at baseline. He is still smoking but states only a few puffs a day. Plan for at least 2-3 more weeks of IV amikacin. Continue ethambutol and azithromycin. He QTC improved after changing voriconazole to Isovuconazole. Plan to start clofazamine. Continue airway clearance with Aerobika and hypertonic saline. Follow-up with Pulmonary on 08/24/2024 as scheduled. Return in 8 weeks. Patient admitted to [facility] on 11/15 with food stuck in his esophagus and underwent EGD with removal. Discharged on 11/18/2024. On 11/19/2024 the patient developed shortness of breath and then hypoxemia. his symptoms worsened and he presented to the emergency department on 11/21/2024. He denied fever, chills, rigors, change in his chronic cough and he had no phlegm production or hemoptysis. His shortness of breath was at rest and with any activity. He had worsening oxygenation and is usually on no oxygen at rest but on 4 L saturations were 88%. Patient presented to the emergency department. EMS had placed him on CPAP. His blood pressure is 143/76, heart rate 124, he was on BiPAP in the emergency department. His white blood cell count was 13.5 with eosinophils 0.4%. His creatinine was 0.7, his BNP was 5710. His COVID, influenza and RSV RT PCR study was negative. ABG on BiPAP 12, pressures 12/6 and 30% was 7.36/55/86. Chest x-ray compared to 10/23/2024 showed a new mild patchy infiltrate left mid and lower lung zone, right upper lobe scarring with no change. 11/22/2024: Overall the patient tells me that his shortness of breath is a little bit better. His oxygenation has improved. When I enter the room he was on 3 L nasal cannula with saturations 100%. I decreased him to room air and his saturations remain 96 after 12 minutes. His white blood cell count is 13.3, creatinine is 0.7 DATA: 10/23/2025: Clinical Indication: Pneumonia CT Scan of the Chest with Contrast: Technique: Contiguous sections were acquired throughout the chest after intravenous administration of 75 cc of Omnipaque 350. Dose reduction technique was used on this scan by utilizing automated exposure control and iterative reconstruction technique. The dose-length product (DLP) was 177.42 mGy-cm. COMPARISON: 07/21/2024 Findings: There is no evidence of any significant mediastinal, hilar or axillary lymphadenopathy. There is no filling defect in the pulmonary arterial tree to suggest pulmonary embolus. There is no evidence of aortic dissection or aneurysm. There is no evidence of pleural or pericardial effusion. Extensive irregular right apical consolidation with areas of cavitation versus bronchiectasis versus necrotic change are similar to prior exam. Stable focal pleural-based irregular consolidation in the posterior left lung apex. Stable small probable irregular pulmonary nodules more inferiorly in the right upper lobe patchy airspace consolidation/opacities in the superior segment left lower lobe are stable to minimally improved. Stable focal scarring the posterior aspect of the right lower lobe (axial image 92). There is increased airspace consolidation at the left lung base posteriorly, which could reflect pneumonia versus atelectasis or scarring. Stable airspace consolidation at the right lung base. Additional scattered subcentimeter nodules in the lingula and left lower lobe are unchanged. There is advanced emphysema. Small amount of debris present dependently in the trachea. Images through the upper abdomen reveal no abnormalities. Impression: Extensive irregular right apical consolidation with areas of cavitation versus bronchiectasis or possibly necrotic change are similar to prior exam. Multiple additional areas of irregular consolidation and/or nodularity throughout the lungs, largely stable from prior exam, but with focal worsening at the left lung base. Vascular fact chronic postinflammatory change with additional new infection or atelectasis or scarring at the left lung base. Clinical correlation advised. Underlying advanced emphysema. 07/21/24: EXAMINATION: CTA chest PE protocol DATE: 07/21/2024 21:53 INDICATION: Shortness of breath. TECHNIQUE: Computed tomography angiography (CTA) of the chest was performed with 100 mL Omnipaque-350 intravenous contrast timed to evaluate the pulmonary arteries. Coronal maximum intensity projection 3D-reconstructions were created by the technologist. Automated exposure control and iterative reconstruction technique were employed. The dose-length product was 501.49 mGy-cm. COMPARISON: Chest CT 05/28/2024 FINDINGS: There is moderate emphysema. There are airspace opacities with cavitation in right upper lobe. There are scattered smaller airspace opacities in the upper lobes and lower lobes. There is mucous plugging in the left lower lobe. There is partial collapse of right middle lobe. No pleural effusion. The heart size is normal. There are coronary artery calcifications. No pericardial effusion. There is no pulmonary embolus. There is mild thoracic spondylosis. IMPRESSION: 1. No pulmonary embolus. 2. Multifocal pneumonia, worsened from 05/28/2024. 3. Moderate emphysema. 10/25/2023: This is a 6 minute walk test. The test was performed and interpreted in accordance with the 2014 ERS/ATS task force guidelines. Findings: The patient's resting room air oxygen saturation measured by pulse oximetry was 96% and heart rate was 81 bpm. Patient ambulated for 305 meters and oxygen saturation remained 93 to 95%. Heart rate at the end of the study was 116 bpm. The patient did not qualify for supplemental oxygen at rest or with ambulation. Compared to 6 minute walk on 05/13/2023 the ambulated distance was the same at 305 m and the luma oxygen saturation was the same at 93%. 10/03/2023: Overnight oximetry on 4 L. Recording duration 7 hours and 43 minutes. Basal saturation 94.9%. High saturation 100. Low saturation 87%. Time with saturation less than or equal to 88% was 43 seconds. Oxygen desaturation index was 10. I will continue 4 L nasal cannula at night. 08/15/2023: 08/15/23: PFTs The test was performed and results interpreted in accordance with the 2019 and 2005 ATS/ERS Task Force guidelines respectively using the Global Lung Function Initiative-2012 reference equations. Patient demonstrated good effort and cooperation. Reproducibility criteria were met. The quality of the pre bronchodilator spirometry maneuver was Grade A and post bronchodilator spirometry maneuver was Grade A.? Of note, patient was only able to perform 1 plethysmography maneuver despite 3 attempts in good coaching. Findings: Spirometry:? There is decreased maximal expiratory airflow at all lung volumes with concave expiratory flow tracing.? The contour the inspiratory flow tracing is normal.? The pre bronchodilator FVC is 3.62 L, 75% predicted.? The pre bronchodilator FEV1 is 1.32 L, 35% predicted.? The pre bronchodilator FEV1: FVC ratio is 36%.? The post bronchodilator FVC is 3.90 L, representing an 8% increase.? The post bronchodilator FEV1 is 1.32 L, representing no change.? The post bronchodilator FEV1: FVC ratio is 34%.? Plethysmography:? The total lung capacity is 10.39 L, 148% predicted.? The functional residual capacity is 7.47 L, 207% predicted.? The residual volume is 6.77 L, 313% predicted.? Diffusing capacity: The diffusing capacity unadjusted for hemoglobin and carboxyhemoglobin is 10.5, 36% predicted.? The diffusing capacity adjusted for alveolar volume is 1.96, 45% predicted.? In comparison to previous pulmonary function testing performed on 06/12/2021 the post bronchodilator FVC is unchanged from 3.95 L to 3.90 L.? The post bronchodilator FEV1 is unchanged from 1.29 L to 1.32 L.? The total lung capacity is increased from 7.80 L to 10.39 L.? The functional residual capacity is unchanged from 6.76 L to 7.47 L.? The residual volume is increased from 3.51 L to 6.77 L.? The diffusing capacity unadjusted for hemoglobin and carboxyhemoglobin is increased from 8.9 to 10.5.? The diffusing capacity adjusted for alveolar volume is unchanged from 1.80 to 1.96. Impression: There is a severe obstructive abnormality without significant improvement after inhaling a single dose of albuterol. The increase in residual volume is consistent with air trapping from an obstructive abnormality.? Hyperinflation is present as demonstrated by the increase in functional residual capacity and total lung capacity and is consistent with an obstructive abnormality. The diffusing capacity unadjusted for hemoglobin and carboxyhemoglobin is severely decreased and remains moderately decreased when adjusted for alveolar volume. In comparison to previous pulmonary function testing on 06/12/2021 there has been a greater than anticipated time dependent increase in the total lung capacity, residual volume and diffusing capacity unadjusted for hemoglobin and carboxyhemoglobin with no significant change in the FVC, FEV1, functional residual capacity and diffusing capacity adjusted for alveolar volume.? Clinical correlation is recommended. Review of Systems Constitutional: Constitutional: Reports no additional constitutional complaints Eyes: Eyes: Reports no additional eye complaints ENT: Reports system reviewed and no additional complaints, except as documented Cardiovascular: Cardiovascular: Reports no additional cardiovascular complaints Respiratory: Respiratory: Reports no additional respiratory complaints Gastrointestinal: Gastrointestinal: Reports no additional gastrointestinal complaints Musculoskeletal: Musculoskeletal: Reports no additional musculoskeletal complaints Neurologic: Reports system reviewed and no additional complaints, except as documented Psychiatric: Psychiatric: Reports no additional psychiatric complaints Endocrine: Endocrine: Reports no additional endocrine complaints Hematologic/Lymphatic: Hematologic/Lymphatic: Reports no additional hematologic/lymphatic complaints Allergic/Immunologic: Allergic/Immunologic: Reports no additional allergic/immunologic complaints [facility] Past Medical History Medical History (Updated 11/22/24 @ 11:46 by Cruz Del Valle MD) Pancreatitis Non-tuberculous mycobacterial pneumonia MSSA bacteremia Osteopenia Pseudomonas pneumonia Mycobacterium avium complex Chronic gtiel-isltkn-hesm disease Chronic respiratory failure with hypoxia, on home oxygen therapy Coronary artery disease Pill esophagitis ST elevation (STEMI) myocardial infarction (12/30/22) Chronic anticoagulation Immunocompromised patient patient on anti rejection medications Positive nasal culture for methicillin resistant Staphylococcus aureus Deep venous thrombosis Insulin dependent type 2 diabetes mellitus Chronic obstructive pulmonary disease Sciatica Eczema Anxiety Depression Peyronie's disease Emphysema/COPD 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 Peripheral neuropathy Pulmonary emboli Hyperlipidemia Surgical History Surgical History History of allogeneic hematopoietic stem cell transplant History of bone marrow transplant (2008) History of cataract extraction with lens replacement History of heart artery stent (12/30/22) 100% occlusion mid RCA s/p drug-eluting stent, left coronary system with vlvn-ah-jblgkoqq disease History of orthopedic surgery Left tibia liz placement Family History Family History Mother Acute myocardial infarction, Onset Age: 42 Father COPD (chronic obstructive pulmonary disease) Diabetes mellitus Alcohol abuse Social History Social History Social History: Surrogate medical decision maker: Lissy Kaiser, friend/roommate. Code status: Full code. Years smoked: 44 Smoking status: Current some day smoker Tobacco type: cigarettes Smoking end date: 08/07/22 Additional smoking assessment comments: on nicotine patches, states he is currently on patches Alcohol intake: former Substance use: never Substance use type: does not use Do You Feel Safe in your Home?: Yes Lack of Transportation: No Lack of Food: Never True Current Housing: I Have Housing Concerned About Future Housing: No Difficulty Paying Gas/Electric Bills: No Difficulty Paying for Meds: No Currently Unemployed: No Education: Trade/Vocational Certificate Difficulty w/ Childcare or Family Care: No Living arrangements: with friend(s) Additional living arrangements comments: He lives with his roommate in [place]. Occupation/Education: unemployed Spiritual care concerns: No Agree to blood products: Yes Meds Home Medications and Allergies Home Medications ?Medication ?Instructions ?Recorded ?Confirmed ?Type rivaroxaban 20 mg tablet (Xarelto) 20 mg PO QAM 02/06/23 11/21/24 History acyclovir 400 mg tablet 400 mg PO TID #90 tabs 01/28/24 11/21/24 Rx clopidogrel 75 mg tablet 75 mg PO DAILY #90 tabs 01/28/24 11/21/24 Rx montelukast 10 mg tablet 10 mg PO HS #30 tabs 01/28/24 11/21/24 Rx (Singulair) mycophenolate mofetil 500 mg tablet 1,000 mg (2 x 500 mg) PO Q12H #10 01/28/24 11/21/24 Rx tabs tacrolimus 0.5 mg capsule, 0.5 mg PO EVERY OTHER DAY #30 caps 01/28/24 11/21/24 Rx immediate-release (Prograf) albuterol sulfate 90 mcg/actuation 1 puff inhalation Q4-6H PRN 10/23/24 11/21/24 History aerosol inhaler Shortness Of Breath Or Wheezing ondansetron 4 mg disintegrating 4 mg PO Q8H PRN Nausea And Vomiting 10/23/24 11/21/24 History tablet pantoprazole 40 mg tablet,delayed 40 mg PO Q12H 10/23/24 11/21/24 History release albuterol sulfate 2.5 mg/3 mL 2.5 mg (3 mL) inhalation Q6H PRN 11/13/24 11/21/24 Rx (0.083 %) solution for nebulization Shortness Of Breath #180 mL Allergies Allergy/AdvReac Type Severity Reaction Status Date / Time adhesive tape AdvReac Unknown PAPER Verified 10/23/24 05:58 TAPE,REDNESS AND IRRITATION Vital Signs Vital Signs - 24 hr 11/21/24 12:08 11/21/24 12:15 11/21/24 12:16 Temperature Pulse Rate 90 89 85 Respiratory Rate 16 15 15 Blood Pressure 109/71 Pulse Oximetry 97 98 98 Oxygen Delivery Oxygen Flow Rate Fraction of Inspired Oxygen 11/21/24 13:10 11/21/24 13:33 11/21/24 13:40 Temperature Pulse Rate 85 93 86 Respiratory Rate 14 15 21 H Blood Pressure Pulse Oximetry 99 99 Oxygen Delivery BiPAP Oxygen Flow Rate Fraction of Inspired Oxygen 11/21/24 13:48 11/21/24 14:24 11/21/24 14:30 Temperature Pulse Rate 94 104 H 119 H Respiratory Rate 21 H 18 28 H Blood Pressure Pulse Oximetry Oxygen Delivery Oxygen Flow Rate Fraction of Inspired Oxygen 11/21/24 14:45 11/21/24 15:00 11/21/24 15:15 Temperature Pulse Rate 110 H 104 H 92 Respiratory Rate 21 H 17 15 Blood Pressure Pulse Oximetry 94 Oxygen Delivery Oxygen Flow Rate Fraction of Inspired Oxygen 11/21/24 15:30 11/21/24 15:59 11/21/24 16:00 Temperature Pulse Rate 94 95 Respiratory Rate 26 H 22 H Blood Pressure Pulse Oximetry 100 Oxygen Delivery BiPAP Oxygen Flow Rate Fraction of Inspired Oxygen 11/21/24 16:10 11/21/24 18:00 11/21/24 20:00 Temperature 36.5 C 36.6 C Pulse Rate 98 75 103 H Respiratory Rate 29 H 18 Blood Pressure 119/76 142/89 H Pulse Oximetry 100 100 Oxygen Delivery Oxygen Flow Rate Fraction of Inspired Oxygen 11/21/24 20:00 11/21/24 20:04 11/21/24 20:04 Temperature Pulse Rate 97 97 Respiratory Rate 22 H Blood Pressure Pulse Oximetry 99 Oxygen Delivery Nasal Cannula Oxygen Flow Rate 3 Fraction of Inspired Oxygen 11/21/24 20:13 11/21/24 21:00 11/21/24 22:00 Temperature Pulse Rate 99 102 H Respiratory Rate 22 H Blood Pressure Pulse Oximetry 98 Oxygen Delivery Nasal Cannula Oxygen Flow Rate 3 Fraction of Inspired Oxygen 11/22/24 00:00 11/22/24 00:00 11/22/24 00:00 Temperature 36.6 C Pulse Rate 94 94 Respiratory Rate 20 Blood Pressure 128/67 Pulse Oximetry 99 99 Oxygen Delivery Nasal Cannula Oxygen Flow Rate 3 Fraction of Inspired Oxygen 11/22/24 02:00 11/22/24 02:19 11/22/24 02:25 Temperature Pulse Rate 80 93 87 Respiratory Rate 20 20 Blood Pressure Pulse Oximetry Oxygen Delivery Oxygen Flow Rate Fraction of Inspired Oxygen 11/22/24 03:11 11/22/24 04:00 11/22/24 04:00 Temperature 36.5 C Pulse Rate 83 86 Respiratory Rate 20 Blood Pressure 117/73 Pulse Oximetry 99 99 Oxygen Delivery Nasal Cannula Oxygen Flow Rate 3 Fraction of Inspired Oxygen 11/22/24 05:36 11/22/24 07:17 11/22/24 07:17 Temperature Pulse Rate 77 88 Respiratory Rate 20 Blood Pressure Pulse Oximetry 99 Oxygen Delivery Nasal Cannula Oxygen Flow Rate 3 Fraction of Inspired Oxygen 32 11/22/24 07:27 11/22/24 07:30 Temperature 36.6 C Pulse Rate 88 89 Respiratory Rate 18 20 Blood Pressure 132/75 Pulse Oximetry 100 Oxygen Delivery Oxygen Flow Rate Fraction of Inspired Oxygen Exam Const: General: cooperative, healthy appearing and comfortable Orientation/consciousness: oriented to person, oriented to place and oriented to time HENMT: Head: normal to inspection Ears: hearing grossly normal bilaterally Eyes: General: appearance normal, both eyes and all related structures Neck: Neck: normal visual inspection Chest: Chest palpation & inspection: normal inspection of the chest Resp: Effort & Inspection: normal respiratory effort and able to speak in complete sentences Auscultation: no crackles, no rales, no rhonchi, no wheezes and lung sounds not diminished Cardio: Jugular venous distension: no JVD GI: Inspection: normal to inspection GI Palp: No abdominal tenderness Skin: General skin exam: normal color Neuro: General: oriented to person, oriented to place and oriented to time Extrem: General: normal to inspection Psych: Appearance: grossly normal Results Laboratory Findings 11/22/24 04:22 11/22/24 04:22 ABG, PT/INR, D-dimer: ABG ABG pH 7.357 (7.350-7.450) 11/21/24 07:57 ABG pCO2 55.1 mmHg (35.0-45.0) H 11/21/24 07:57 ABG pO2 86.1 mmHg (80.0-100.0) 11/21/24 07:57 ABG O2 Saturation 96.0 % (95.0-100.0) 11/21/24 07:57 PT/INR, D-dimer PT 27.8 Seconds (11.1-14.7) H D 11/21/24 06:39 INR 2.5 11/21/24 06:39 Abnormal lab findings: Abnormal Labs 11/21/24 11/21/24 11/21/24 06:01 06:38 06:39 WBC 13.5 H RBC 3.22 L Hgb 11.4 L Hct 35.6 L MCV 110.6 H MCH 35.4 H RDW 14.6 H MPV 10.5 H Immature Gran % (Auto) Neut % (Auto) 83.3 H Lymph % (Auto) 6.6 L [place] % (Auto) 9.1 H Baso % (Auto) Lymph # (Auto) 0.89 L [place] # (Auto) 1.2 H Abs Immat Gran (auto) 0.05 H Absolute Neuts (auto) 11.2 H PT 27.8 H D APTT 49.3 H ABG pCO2 ABG HCO3 Total Hemoglobin Sodium Carbon Dioxide 33 H Anion Gap BUN 27 H Glucose 251 H POC Capillary Glucose Hemoglobin A1c 6.2 H AST 60 H ALT 61 H Alkaline Phosphatase 137 H Troponin I NT-Pro-B Natriuret Pep 5710 H Lipase 20 L Urine Glucose (UA) 11/21/24 11/21/24 11/21/24 07:57 08:51 09:47 WBC RBC Hgb Hct MCV MCH RDW MPV Immature Gran % (Auto) Neut % (Auto) Lymph % (Auto) [place] % (Auto) Baso % (Auto) Lymph # (Auto) [place] # (Auto) Abs Immat Gran (auto) Absolute Neuts (auto) PT APTT ABG pCO2 55.1 H ABG HCO3 30.2 H Total Hemoglobin 11.9 L Sodium Carbon Dioxide Anion Gap BUN Glucose POC Capillary Glucose Hemoglobin A1c AST ALT Alkaline Phosphatase Troponin I 0.110 H* D NT-Pro-B Natriuret Pep Lipase Urine Glucose (UA) 2+ H 11/21/24 11/21/24 11/21/24 14:47 16:53 19:53 WBC RBC Hgb Hct MCV MCH RDW MPV Immature Gran % (Auto) Neut % (Auto) Lymph % (Auto) [place] % (Auto) Baso % (Auto) Lymph # (Auto) [place] # (Auto) Abs Immat Gran (auto) Absolute Neuts (auto) PT APTT ABG pCO2 ABG HCO3 Total Hemoglobin Sodium Carbon Dioxide Anion Gap BUN Glucose POC Capillary Glucose 394 H 361 H Hemoglobin A1c AST ALT Alkaline Phosphatase Troponin I 0.106 H* NT-Pro-B Natriuret Pep Lipase Urine Glucose (UA) 11/21/24 11/22/24 11/22/24 21:42 01:10 02:10 WBC RBC Hgb Hct MCV MCH RDW MPV Immature Gran % (Auto) Neut % (Auto) Lymph % (Auto) [place] % (Auto) Baso % (Auto) Lymph # (Auto) [place] # (Auto) Abs Immat Gran (auto) Absolute Neuts (auto) PT APTT ABG pCO2 ABG HCO3 Total Hemoglobin Sodium Carbon Dioxide Anion Gap BUN Glucose POC Capillary Glucose 367 H 325 H Hemoglobin A1c AST ALT Alkaline Phosphatase Troponin I 0.068 H* D NT-Pro-B Natriuret Pep Lipase Urine Glucose (UA) 11/22/24 11/22/24 04:22 07:32 WBC 13.3 H RBC 2.73 L Hgb 9.5 L Hct 29.3 L MCV 107.3 H MCH 34.8 H RDW 14.6 H MPV 11.2 H Immature Gran % (Auto) 0.6 H Neut % (Auto) 90.8 H Lymph % (Auto) 6.2 L [place] % (Auto) 2.3 L Baso % (Auto) 0.1 L Lymph # (Auto) 0.82 L [place] # (Auto) Abs Immat Gran (auto) 0.08 H Absolute Neuts (auto) 12.0 H PT APTT ABG pCO2 ABG HCO3 Total Hemoglobin Sodium 133 L Carbon Dioxide Anion Gap 3 L BUN 32 H Glucose 288 H POC Capillary Glucose 281 H Hemoglobin A1c AST ALT Alkaline Phosphatase Troponin I NT-Pro-B Natriuret Pep Lipase Urine Glucose (UA) Diagnostic Findings Additional studies: ITS Impressions Chest X-Ray 11/21/24 07:07 IMPRESSION: Mild new patchy nodular infiltrate in the left mid and lower lung zones, suggesting pneumonia Severe COPD Chronic severe right upper lobe atelectasis and scarring, possible cavitation
[2024-11-22 11:38] LABS: Glucose Point of Care 439 mg/dl (65-105)
[2024-11-22] MEDS: INSULIN ASPART (*BKC) 100 UNITS/ML 12 UNITS SUB-Q (12:20)
[2024-11-22] MEDS: methylPREDNISolone SOD SUCC 40 MG VIAL 20 MG IV PUSH ×3 (12:20→23:36)
--- NOTE | 2024-11-22 13:00 | P.PNCA_ITS ---
Progress Note: A&P Assessment and Plan (1) Elevated troponin: Code(s): R79.89 - Other specified abnormal findings of blood chemistry Status: Acute Assessment and Plan: Patient has known history of coronary artery disease He had STEMI on 01/24/23 and was seen by HCG. R He smokes <1/4 ppd. He is on oxygen at 3 l/m home and limited at walking short distances due to COPD. Review of prior office note from Dr. Carranza demonstrated Cardiovascular Procedures Commissary Representative:: 12/30/22 Dr. La cath: LAD mild-mod diffuse disease in prox-mid vessel, LCx mid 30-40%, RCA 100% thrombotic mid occlusion; PCI with RACHEL to RCA. Echo/MUGA:: 12/31/22 Echo: EF 45-50%, mild LVE, grade I diastolic dysfunction, inferior akinesis, inferoseptal hypokinesis. (2) Chronic respiratory failure with hypoxia, on home oxygen therapy: Code(s): J96.11 - Chronic respiratory failure with hypoxia; Z99.81 - Dependence on supplemental oxygen Status: Acute Assessment and Plan: Sees Pulmonary required BiPAP on admission currently off BiPAP Getting steroids and antibiotics per hospitalist Service and Pulmonary (3) BiPAP (biphasic positive airway pressure) dependence: Code(s): Z99.89 - Dependence on other enabling machines and devices Status: Acute Assessment and Plan: Currently not using BiPAP but did require yesterday while was evaluated (4) Chronic anticoagulation: Code(s): Z79.01 - jail (current) use of 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 Status: Acute Assessment and Plan: Has been anticoagulation Has a history of pulmonary embolism has been on Xarelto likely due to a benefit for him to continue on this indefinitely as he has limited functional ability and may have an increased risk of having recurrent DVT PE (5) Systolic congestive heart failure: Code(s): I50.20 - Unspecified systolic (congestive) heart failure Status: Acute Assessment and Plan: Known abnormal LV function based on echocardiogram previously done as noted in my consult from [facility] where his EF was estimated at 30% currently does not have acute on chronic systolic congestive heart failure decompensation with this presentation seems more in line with his COPD decompensation Plan Elevated troponin-multifactorial likely related to tachycardia and respiratory distress not a candidate for cardiac catheterization at present his EKG demonstrates no new ACS changes and his troponins are likely going to be flat within setting of his LV dysfunction LV dysfunction- history of the EF of 30% based on prior echocardiogram as noted at [facility] as noted above Chronic systolic CHF-related to his ejection fraction 30% he also has valvular mitral regurgitation would use IV Lasix for diuresis as tolerated BNP was noted to be mildly elevated at 5710 Hypoxemic respiratory distress continue with BiPAP as needed seen by Pulmonary I suspect that his COPD is severe and will require long-term noninvasive ventilator support until his infectious process is cleared Pulmonary embolism-prior history has been on Xarelto for anticoagulation Subjective Date/time seen: 11/22/24 13:00 Interval history: Currently breathing off BiPAP says it is not having any trouble no chest pains the shows that he is in sinus rhythm to sinus tach Exam Const: Other: Currently not in any distress breathing quietly not utilizing BiPAP Resp: Other: Diminished air entry bilaterally No rhonchi or wheezes noted Cardio: Other: Distant heart sounds sinus rhythm and sinus tach noted on air sampling and monitoring Extrem: Other: No significant edema noted Objective Data Vital Signs Vital Signs: Vital Signs - 24 hr 11/21/24 13:10 11/21/24 13:33 11/21/24 13:40 Temperature Pulse Rate 85 93 86 Respiratory Rate 14 15 21 H Blood Pressure Pulse Oximetry 99 99 Oxygen Delivery BiPAP Oxygen Flow Rate Fraction of Inspired Oxygen 11/21/24 13:48 11/21/24 14:24 11/21/24 14:30 Temperature Pulse Rate 94 104 H 119 H Respiratory Rate 21 H 18 28 H Blood Pressure Pulse Oximetry Oxygen Delivery Oxygen Flow Rate Fraction of Inspired Oxygen 11/21/24 14:45 11/21/24 15:00 11/21/24 15:15 Temperature Pulse Rate 110 H 104 H 92 Respiratory Rate 21 H 17 15 Blood Pressure Pulse Oximetry 94 Oxygen Delivery Oxygen Flow Rate Fraction of Inspired Oxygen 11/21/24 15:30 11/21/24 15:59 11/21/24 16:00 Temperature Pulse Rate 94 95 Respiratory Rate 26 H 22 H Blood Pressure Pulse Oximetry 100 Oxygen Delivery BiPAP Oxygen Flow Rate Fraction of Inspired Oxygen 11/21/24 16:10 11/21/24 18:00 11/21/24 20:00 Temperature 36.5 C 36.6 C Pulse Rate 98 75 103 H Respiratory Rate 29 H 18 Blood Pressure 119/76 142/89 H Pulse Oximetry 100 100 Oxygen Delivery Oxygen Flow Rate Fraction of Inspired Oxygen 11/21/24 20:00 11/21/24 20:04 11/21/24 20:04 Temperature Pulse Rate 97 97 Respiratory Rate 22 H Blood Pressure Pulse Oximetry 99 Oxygen Delivery Nasal Cannula Oxygen Flow Rate 3 Fraction of Inspired Oxygen 11/21/24 20:13 11/21/24 21:00 11/21/24 22:00 Temperature Pulse Rate 99 102 H Respiratory Rate 22 H Blood Pressure Pulse Oximetry 98 Oxygen Delivery Nasal Cannula Oxygen Flow Rate 3 Fraction of Inspired Oxygen 11/22/24 00:00 11/22/24 00:00 11/22/24 00:00 Temperature 36.6 C Pulse Rate 94 94 Respiratory Rate 20 Blood Pressure 128/67 Pulse Oximetry 99 99 Oxygen Delivery Nasal Cannula Oxygen Flow Rate 3 Fraction of Inspired Oxygen 11/22/24 02:00 11/22/24 02:19 11/22/24 02:25 Temperature Pulse Rate 80 93 87 Respiratory Rate 20 20 Blood Pressure Pulse Oximetry Oxygen Delivery Oxygen Flow Rate Fraction of Inspired Oxygen 11/22/24 03:11 11/22/24 04:00 11/22/24 04:00 Temperature 36.5 C Pulse Rate 83 86 Respiratory Rate 20 Blood Pressure 117/73 Pulse Oximetry 99 99 Oxygen Delivery Nasal Cannula Oxygen Flow Rate 3 Fraction of Inspired Oxygen 11/22/24 05:36 11/22/24 07:17 11/22/24 07:17 Temperature Pulse Rate 77 88 Respiratory Rate 20 Blood Pressure Pulse Oximetry 99 Oxygen Delivery Nasal Cannula Oxygen Flow Rate 3 Fraction of Inspired Oxygen 32 11/22/24 07:27 11/22/24 07:30 11/22/24 12:00 Temperature 36.6 C 36.9 C Pulse Rate 88 89 92 Respiratory Rate 18 20 14 Blood Pressure 132/75 115/66 Pulse Oximetry 100 99 Oxygen Delivery Oxygen Flow Rate Fraction of Inspired Oxygen Intake/Output Intake/Output: Intake & Output 11/19/24 11/20/24 11/21/24 11/22/24 23:59 23:59 23:59 23:59 Intake Total 400 2090 Output Total 700 1950 Balance -300 140 Meds/Results Medications: Active Medications Generic Name Dose Route Start Last Admin Trade Name Freq PRN Reason Stop Dose Admin Acetaminophen 650 mg 11/21/24 09:04 Acetaminophen 325 Mg Tablet PO Q4H PRN Mild Pain (1-3) or Fever Acyclovir 400 mg 11/21/24 22:00 11/22/24 05:16 Acyclovir 400 Mg Tablet PO 400 mg Q8HR ROSA MARIA Administration Albuterol/Ipratropium 3 ml 11/21/24 14:00 11/22/24 07:17 Ipratropium 0.5 Mg/Albuterol Sulfate 2.5 Mg Ampul.Neb 3 Ml INHALATION 3 ml Q6HRT ROSA MARIA Administration Clopidogrel Bisulfate 75 mg 11/22/24 09:00 11/22/24 09:27 Clopidogrel Bisulfate 75 Mg Tablet PO 75 mg DAILY ROSA MARIA Administration Dextrose 12.5 gm 11/21/24 14:49 Dextrose 50% 25 Gm/50 Ml Syringe IV PUSH PRN PRN Hypoglycemia Protocol Glucagon 1 mg 11/21/24 14:49 Glucagon For Inj 1 Mg Vial IM PRN PRN Hypoglycemia Protocol Glucose 15 gm 11/21/24 14:49 Glucose Oral Gel 15 Gm Of Glucse In 37.5 Gm Tube PO PRN PRN Hypoglycemia Protocol Azithromycin 500 mg in 250 mls @ 250 mls/hr 11/21/24 09:00 11/22/24 09:28 Zithromax IVPB 250 mls/hr Q24H ROSA MARIA Administration Cefepime HCl 2 gm in 50 mls @ 100 mls/hr 11/21/24 14:00 11/22/24 05:54 Maxipime 2 Gm/Ns 50 Ml IVPB Infused Q8H ROSA MARIA Infusion Dextrose 1,000 mls @ 100 mls/hr 11/21/24 14:49 Dextrose 5% 1,000 Ml IVPB PRN PRN Hypoglycemia Protocol Vancomycin HCl 1,250 mg in 250 mls @ 166.667 mls/hr 11/22/24 08:00 11/22/24 09:28 Vancomycin 1,250 Mg/Ns 250 Ml IVPB 166.67 mls/hr Q12H ROSA MARIA Administration Insulin Aspart 3 - 6 units 11/21/24 17:00 11/22/24 12:18 Insulin Aspart (*Bkc) 100 Units/Ml SUB-Q Not Given TIDWM ROSA MARIA Protocol Insulin Aspart 1 - 3 units 11/21/24 21:00 11/21/24 21:05 Insulin Aspart (*Bkc) 100 Units/Ml SUB-Q 3 units HS ROSA MARIA Administration Protocol Methylprednisolone Sodium Succinate 20 mg 11/22/24 12:00 11/22/24 12:20 Methylprednisolone Sod Succ 40 Mg Vial IV PUSH 20 mg Q6HR ROSA MARIA Administration Montelukast Sodium 10 mg 11/21/24 21:00 11/21/24 22:00 Montelukast Sodium 10 Mg Tablet PO 10 mg HS ROSA MARIA Administration Mycophenolate Mofetil 1,000 mg 11/21/24 21:00 11/22/24 09:27 Mycophenolate Mofetil 250 Mg Capsule PO 1,000 mg Q12H ROSA MARIA Administration Pantoprazole Sodium 40 mg 11/21/24 21:00 11/22/24 09:27 Pantoprazole 40 Mg Tablet PO 40 mg Q12H ROSA MARIA Administration Perflutren Lipid Microsphere 0 ml 11/21/24 14:48 Perflutren Lipid Microspheres 1.5 Ml Vial Diluted To 10 Ml Total Volume IV PUSH 11/24/24 14:48 ONCE PRN adequate visualization Protocol Rivaroxaban 20 mg 11/22/24 17:00 Rivaroxaban 20 Mg Tablet PO DAILY@1700 [facility] Sodium Chloride 6 ml 11/22/24 05:00 Sodium Chlor 3% 15 Ml Neb (Respiratory Therapy) INHALATION 11/24/24 05:01 DAILY@0500 [facility] Tacrolimus 0.5 mg 11/22/24 17:00 Tacrolimus 0.5 Mg Capsule PO Q48H [facility] Radiology Results: ITS Impressions Chest X-Ray 11/21/24 07:07 IMPRESSION: Mild new patchy nodular infiltrate in the left mid and lower lung zones, suggesting pneumonia Severe COPD Chronic severe right upper lobe atelectasis and scarring, possible cavitation Labs Labs: Laboratory Results - last 24 hr 11/21/24 11/21/24 11/21/24 06:01 14:47 16:53 WBC RBC Hgb Hct MCV MCH MCHC RDW Plt Count MPV Immature Gran % (Auto) Neut % (Auto) Lymph % (Auto) [place] % (Auto) Eos % (Auto) Baso % (Auto) Lymph # (Auto) [place] # (Auto) Eos # (Auto) Baso # (Auto) Abs Immat Gran (auto) Absolute Neuts (auto) Absolute Nucleated RBC Nucleated RBC % Platelet Estimate Hypochromasia Macrocytosis Schistocytes Sodium Potassium Chloride Carbon Dioxide Anion Gap BUN Creatinine Estim Creat Clear Calc Estimated GFR Glucose POC Capillary Glucose 394 H Hemoglobin A1c 6.2 H Calcium Magnesium Total Bilirubin AST ALT Alkaline Phosphatase Troponin I 0.106 H* Total Protein Albumin 11/21/24 11/21/24 11/22/24 19:53 21:42 01:10 WBC RBC Hgb Hct MCV MCH MCHC RDW Plt Count MPV Immature Gran % (Auto) Neut % (Auto) Lymph % (Auto) [place] % (Auto) Eos % (Auto) Baso % (Auto) Lymph # (Auto) [place] # (Auto) Eos # (Auto) Baso # (Auto) Abs Immat Gran (auto) Absolute Neuts (auto) Absolute Nucleated RBC Nucleated RBC % Platelet Estimate Hypochromasia Macrocytosis Schistocytes Sodium Potassium Chloride Carbon Dioxide Anion Gap BUN Creatinine Estim Creat Clear Calc Estimated GFR Glucose POC Capillary Glucose 361 H 367 H Hemoglobin A1c Calcium Magnesium Total Bilirubin AST ALT Alkaline Phosphatase Troponin I 0.068 H* D Total Protein Albumin 11/22/24 11/22/24 11/22/24 02:10 04:22 07:32 WBC 13.3 H RBC 2.73 L Hgb 9.5 L Hct 29.3 L MCV 107.3 H MCH 34.8 H MCHC 32.4 RDW 14.6 H Plt Count 313 MPV 11.2 H Immature Gran % (Auto) 0.6 H Neut % (Auto) 90.8 H Lymph % (Auto) 6.2 L [place] % (Auto) 2.3 L Eos % (Auto) 0.0 Baso % (Auto) 0.1 L Lymph # (Auto) 0.82 L [place] # (Auto) 0.3 Eos # (Auto) 0.0 Baso # (Auto) 0.0 Abs Immat Gran (auto) 0.08 H Absolute Neuts (auto) 12.0 H Absolute Nucleated RBC 0.000 Nucleated RBC % 0.0 Platelet Estimate Adequate Hypochromasia 1+ Macrocytosis 1+ Schistocytes None seen Sodium 133 L Potassium 4.0 Chloride 101 Carbon Dioxide 29 Anion Gap 3 L BUN 32 H Creatinine 0.70 Estim Creat Clear Calc 84 Estimated GFR > 60 Glucose 288 H POC Capillary Glucose 325 H 281 H Hemoglobin A1c Calcium 8.6 Magnesium 2.1 Total Bilirubin 0.5 AST 32 ALT 42 Alkaline Phosphatase 116 Troponin I Total Protein 7.0 Albumin 3.5 11/22/24 11:25 WBC RBC Hgb Hct MCV MCH MCHC RDW Plt Count MPV Immature Gran % (Auto) Neut % (Auto) Lymph % (Auto) [place] % (Auto) Eos % (Auto) Baso % (Auto) Lymph # (Auto) [place] # (Auto) Eos # (Auto) Baso # (Auto) Abs Immat Gran (auto) Absolute Neuts (auto) Absolute Nucleated RBC Nucleated RBC % Platelet Estimate Hypochromasia Macrocytosis Schistocytes Sodium Potassium Chloride Carbon Dioxide Anion Gap BUN Creatinine Estim Creat Clear Calc Estimated GFR Glucose POC Capillary Glucose 439 H Hemoglobin A1c Calcium Magnesium Total Bilirubin AST ALT Alkaline Phosphatase Troponin I Total Protein Albumin
[2024-11-22 14:19] LABS: Glucose Point of Care 225 mg/dl (65-105)
--- NOTE | 2024-11-22 16:24 | P.PNIM_ITS ---
Progress Note: A&P Assessment and Plan (1) Acute and chronic respiratory failure with hypoxia: Code(s): J96.21 - Acute and chronic respiratory failure with hypoxia Status: Acute Assessment and Plan: The patient presented to the emergency department for evaluation of worsening shortness of breath over the last day. He was just discharged from [place] a couple of days ago and he states they sent him home with abx. Records requested. CXR here showing mild new patchy nodular infiltrate in the left mid and lower lung. WBC 13K. Pulmonology consult given his complicated medical history. BCx NGTD. Hx of pseudomonas by prior sputum cultures (colonized?) Started Azithromycin and Cefepime. Continue the same. (2) Pneumonia: Qualifiers: Laterality: bilateral Lung location: lower lobe of lung Pneumonia type: due to unspecified organism Qualified Code(s): J18.9 - Pneumonia, unspecified organism Code(s): J18.9 - Pneumonia, unspecified organism Status: Acute Assessment and Plan: As above. Patient also undergoing treatment for MAC. Somewhat unclear if he has completed a course of treatment or not. Follow up on cultures here. Patient with bacterial pneumonia and at this time will hold the mycophenolate and tacrolimas. He is on steroids for possible COPD exacerbation as Solu-Medrol 60 q.6. (3) COPD (chronic obstructive pulmonary disease): Qualifiers: COPD type: COPD with acute exacerbation Qualified Code(s): J44.1 - Chronic obstructive pulmonary disease with (acute) exacerbation Code(s): J44.9 - Chronic obstructive pulmonary disease, unspecified Status: Acute Assessment and Plan: Patient also with COPD exacerbation. Continue Solu-Medrol and bronchodilators. Wean steroids as tolerated. (4) Elevated troponin: Code(s): R79.89 - Other specified abnormal findings of blood chemistry Status: Acute Assessment and Plan: Troponin elevated to 0.11 likely due to hypoxia and tachycardia EKG showing sinus tachycardia (114), nonspecific T wave changes. Cardiology consulted. [place] results noted from Dec 2022. Continue Plavix. Not on a statin. (5) Chronic fbkxt-qxuzat-lndq disease: Code(s): D89.811 - Chronic wvkdj-tcvcmt-sifr disease Status: Acute Assessment and Plan: As above. Holding anti-rejection meds while actively infected. Would like to resume as soon as possible. Continue Acyclovir. (6) Insulin dependent type 2 diabetes mellitus: Code(s): E11.9 - Type 2 diabetes mellitus without complications; Z79.4 - [facility] (current) use of insulin Status: Acute Assessment and Plan: A1c 6.2. The patient's blood glucose was reviewed on 11/22/24 Glucose remains elevated related to the steroids. Continue AccuCheks covering with sliding scale. Hypoglycemia protocol available as needed. 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 He was able to come off the bipap earlier. Pulonary took him off O2 as well. No n/v. No complaints of SOB or CP. Exam Narrative: AF 98.2 113/65 70 18 100% 3L Gen - NARD Chest - distant clear BS, nml RR CV - RRR S1/S2 Abd - Soft, NT/ND, Positive BS Ext - No pedal edema Psych - Nml mood Skin - Warm and dry Objective Data Vital Signs Vital Signs: Vital Signs - 24 hr 11/21/24 18:00 11/21/24 20:00 11/21/24 20:00 Temperature 98 F Pulse Rate 75 103 H 97 Respiratory Rate 18 Blood Pressure 142/89 H Pulse Oximetry 100 Oxygen Delivery Oxygen Flow Rate Fraction of Inspired Oxygen 11/21/24 20:04 11/21/24 20:04 11/21/24 20:13 Temperature Pulse Rate 97 99 Respiratory Rate 22 H 22 H Blood Pressure Pulse Oximetry 99 Oxygen Delivery Nasal Cannula Oxygen Flow Rate 3 Fraction of Inspired Oxygen 11/21/24 21:00 11/21/24 22:00 11/22/24 00:00 Temperature 98 F Pulse Rate 102 H 94 Respiratory Rate 20 Blood Pressure 128/67 Pulse Oximetry 98 99 Oxygen Delivery Nasal Cannula Oxygen Flow Rate 3 Fraction of Inspired Oxygen 11/22/24 00:00 11/22/24 00:00 11/22/24 02:00 Temperature Pulse Rate 94 80 Respiratory Rate Blood Pressure Pulse Oximetry 99 Oxygen Delivery Nasal Cannula Oxygen Flow Rate 3 Fraction of Inspired Oxygen 11/22/24 02:19 11/22/24 02:25 11/22/24 03:11 Temperature Pulse Rate 93 87 Respiratory Rate 20 20 Blood Pressure Pulse Oximetry 99 Oxygen Delivery Nasal Cannula Oxygen Flow Rate 3 Fraction of Inspired Oxygen 11/22/24 04:00 11/22/24 04:00 11/22/24 05:36 Temperature 97.7 F Pulse Rate 83 86 77 Respiratory Rate 20 Blood Pressure 117/73 Pulse Oximetry 99 Oxygen Delivery Oxygen Flow Rate Fraction of Inspired Oxygen 11/22/24 07:17 11/22/24 07:17 11/22/24 07:27 Temperature 97.8 F Pulse Rate 88 88 Respiratory Rate 20 18 Blood Pressure 132/75 Pulse Oximetry 99 100 Oxygen Delivery Nasal Cannula Oxygen Flow Rate 3 Fraction of Inspired Oxygen 32 11/22/24 07:30 11/22/24 08:00 11/22/24 08:00 Temperature Pulse Rate 89 91 Respiratory Rate 20 Blood Pressure Pulse Oximetry 99 Oxygen Delivery Nasal Cannula Oxygen Flow Rate 3 Fraction of Inspired Oxygen 11/22/24 10:00 11/22/24 12:00 11/22/24 12:00 Temperature 98.5 F Pulse Rate 120 H 92 Respiratory Rate 14 Blood Pressure 115/66 Pulse Oximetry 99 98 Oxygen Delivery Nasal Cannula Oxygen Flow Rate 3 Fraction of Inspired Oxygen 11/22/24 12:00 11/22/24 13:30 11/22/24 13:38 Temperature Pulse Rate 93 90 99 Respiratory Rate 20 20 Blood Pressure Pulse Oximetry Oxygen Delivery Oxygen Flow Rate Fraction of Inspired Oxygen 11/22/24 14:00 11/22/24 16:00 Temperature 98.2 F Pulse Rate 99 75 Respiratory Rate 18 Blood Pressure 113/65 Pulse Oximetry 100 Oxygen Delivery Oxygen Flow Rate Fraction of Inspired Oxygen Intake/Output Intake/Output: Intake & Output 11/19/24 11/20/24 11/21/24 11/22/24 23:59 23:59 23:59 23:59 Intake Total 400 2830 Output Total 700 1950 Balance -300 880 Meds/Results Medications: Active Medications Generic Name Dose Route Start Last Admin Trade Name Freq PRN Reason Stop Dose Admin Acetaminophen 650 mg 11/21/24 09:04 Acetaminophen 325 Mg Tablet PO Q4H PRN Mild Pain (1-3) or Fever Acyclovir 400 mg 11/21/24 22:00 11/22/24 14:11 Acyclovir 400 Mg Tablet PO 400 mg Q8HR ROSA MARIA Administration Albuterol/Ipratropium 3 ml 11/21/24 14:00 11/22/24 13:30 Ipratropium 0.5 Mg/Albuterol Sulfate 2.5 Mg Ampul.Neb 3 Ml INHALATION 3 ml Q6HRT ROSA MARIA Administration Clopidogrel Bisulfate 75 mg 11/22/24 09:00 11/22/24 09:27 Clopidogrel Bisulfate 75 Mg Tablet PO 75 mg DAILY ROSA MARIA Administration Dextrose 12.5 gm 11/21/24 14:49 Dextrose 50% 25 Gm/50 Ml Syringe IV PUSH PRN PRN Hypoglycemia Protocol Glucagon 1 mg 11/21/24 14:49 Glucagon For Inj 1 Mg Vial IM PRN PRN Hypoglycemia Protocol Glucose 15 gm 11/21/24 14:49 Glucose Oral Gel 15 Gm Of Glucse In 37.5 Gm Tube PO PRN PRN Hypoglycemia Protocol Azithromycin 500 mg in 250 mls @ 250 mls/hr 11/21/24 09:00 11/22/24 10:28 Zithromax IVPB Infused Q24H ROSA MARIA Infusion Cefepime HCl 2 gm in 50 mls @ 100 mls/hr 11/21/24 14:00 11/22/24 14:11 Maxipime 2 Gm/Ns 50 Ml IVPB 100 mls/hr Q8H ROSA MARIA Administration Dextrose 1,000 mls @ 100 mls/hr 11/21/24 14:49 Dextrose 5% 1,000 Ml IVPB PRN PRN Hypoglycemia Protocol Vancomycin HCl 1,250 mg in 250 mls @ 166.667 mls/hr 11/22/24 08:00 11/22/24 10:58 Vancomycin 1,250 Mg/Ns 250 Ml IVPB Infused Q12H ROSA MARIA Infusion Insulin Aspart 3 - 6 units 11/21/24 17:00 11/22/24 12:18 Insulin Aspart (*Bkc) 100 Units/Ml SUB-Q Not Given TIDWM [facility] Protocol Insulin Aspart 1 - 3 units 11/21/24 21:00 11/21/24 21:05 Insulin Aspart (*Bkc) 100 Units/Ml SUB-Q 3 units HS ROSA MARIA Administration Protocol Methylprednisolone Sodium Succinate 20 mg 11/22/24 12:00 11/22/24 12:20 Methylprednisolone Sod Succ 40 Mg Vial IV PUSH 20 mg Q6HR ROSA MARIA Administration Montelukast Sodium 10 mg 11/21/24 21:00 11/21/24 22:00 Montelukast Sodium 10 Mg Tablet PO 10 mg HS ROSA MARIA Administration Mycophenolate Mofetil 1,000 mg 11/21/24 21:00 11/22/24 09:27 Mycophenolate Mofetil 250 Mg Capsule PO 1,000 mg Q12H ROSA MARIA Administration Pantoprazole Sodium 40 mg 11/21/24 21:00 11/22/24 09:27 Pantoprazole 40 Mg Tablet PO 40 mg Q12H ROSA MARIA Administration Perflutren Lipid Microsphere 0 ml 11/21/24 14:48 Perflutren Lipid Microspheres 1.5 Ml Vial Diluted To 10 Ml Total Volume IV PUSH 11/24/24 14:48 ONCE PRN adequate visualization Protocol Rivaroxaban 20 mg 11/22/24 17:00 Rivaroxaban 20 Mg Tablet PO DAILY@1700 [facility] Sodium Chloride 6 ml 11/22/24 05:00 Sodium Chlor 3% 15 Ml Neb (Respiratory Therapy) INHALATION 11/24/24 05:01 DAILY@0500 [facility] Tacrolimus 0.5 mg 11/22/24 17:00 Tacrolimus 0.5 Mg Capsule PO Q48H [facility] Radiology Results: ITS Impressions Chest X-Ray 11/21/24 07:07 IMPRESSION: Mild new patchy nodular infiltrate in the left mid and lower lung zones, suggesting pneumonia Severe COPD Chronic severe right upper lobe atelectasis and scarring, possible cavitation Labs Labs: Laboratory Results - last 24 hr 11/21/24 11/21/24 11/21/24 16:53 19:53 21:42 WBC RBC Hgb Hct MCV MCH MCHC RDW Plt Count MPV Immature Gran % (Auto) Neut % (Auto) Lymph % (Auto) [place] % (Auto) Eos % (Auto) Baso % (Auto) Lymph # (Auto) [place] # (Auto) Eos # (Auto) Baso # (Auto) Abs Immat Gran (auto) Absolute Neuts (auto) Absolute Nucleated RBC Nucleated RBC % Platelet Estimate Hypochromasia Macrocytosis Schistocytes Sodium Potassium Chloride Carbon Dioxide Anion Gap BUN Creatinine Estim Creat Clear Calc Estimated GFR Glucose POC Capillary Glucose 394 H 361 H Calcium Magnesium Total Bilirubin AST ALT Alkaline Phosphatase Troponin I 0.068 H* D Total Protein Albumin 11/22/24 11/22/24 11/22/24 01:10 02:10 04:22 WBC 13.3 H RBC 2.73 L Hgb 9.5 L Hct 29.3 L MCV 107.3 H MCH 34.8 H MCHC 32.4 RDW 14.6 H Plt Count 313 MPV 11.2 H Immature Gran % (Auto) 0.6 H Neut % (Auto) 90.8 H Lymph % (Auto) 6.2 L [place] % (Auto) 2.3 L Eos % (Auto) 0.0 Baso % (Auto) 0.1 L Lymph # (Auto) 0.82 L [place] # (Auto) 0.3 Eos # (Auto) 0.0 Baso # (Auto) 0.0 Abs Immat Gran (auto) 0.08 H Absolute Neuts (auto) 12.0 H Absolute Nucleated RBC 0.000 Nucleated RBC % 0.0 Platelet Estimate Adequate Hypochromasia 1+ Macrocytosis 1+ Schistocytes None seen Sodium 133 L Potassium 4.0 Chloride 101 Carbon Dioxide 29 Anion Gap 3 L BUN 32 H Creatinine 0.70 Estim Creat Clear Calc 84 Estimated GFR > 60 Glucose 288 H POC Capillary Glucose 367 H 325 H Calcium 8.6 Magnesium 2.1 Total Bilirubin 0.5 AST 32 ALT 42 Alkaline Phosphatase 116 Troponin I Total Protein 7.0 Albumin 3.5 11/22/24 11/22/24 11/22/24 07:32 11:25 14:09 WBC RBC Hgb Hct MCV MCH MCHC RDW Plt Count MPV Immature Gran % (Auto) Neut % (Auto) Lymph % (Auto) [place] % (Auto) Eos % (Auto) Baso % (Auto) Lymph # (Auto) [place] # (Auto) Eos # (Auto) Baso # (Auto) Abs Immat Gran (auto) Absolute Neuts (auto) Absolute Nucleated RBC Nucleated RBC % Platelet Estimate Hypochromasia Macrocytosis Schistocytes Sodium Potassium Chloride Carbon Dioxide Anion Gap BUN Creatinine Estim Creat Clear Calc Estimated GFR Glucose POC Capillary Glucose 281 H 439 H 225 H Calcium Magnesium Total Bilirubin AST ALT Alkaline Phosphatase Troponin I Total Protein Albumin
[2024-11-22 17:00] LABS: Glucose Point of Care 102 mg/dl (65-105)
[2024-11-22] MEDS: RIVAROXABAN 20 MG TABLET PO (17:53)
[2024-11-22] MEDS: TACROLIMUS 0.5 MG CAPSULE PO (17:58)
[2024-11-22 19:25] LABS: Glucose Point of Care 367 mg/dl (65-105)
[2024-11-22] MEDS: VANCOMYCIN 1,250 MG/NS 250 ML 1,250 MG/250 ML BAG 167 MG IVPB (20:07)
[2024-11-22] MEDS: MONTELUKAST SODIUM 10 MG TABLET PO (21:07)
[2024-11-22] MEDS: MELATONIN 3 MG TABLET PO (21:38)
[2024-11-22] MEDS: HYDROcodone/acetaminophen (*CRX) 5-325 MG TABLET 1 TAB PO (22:18)
[2024-11-23] VITALS (25 sets, daily range): BP systolic 115–160; BP diastolic 64–86; PULSE 58–107; RESP 18–26; TEMP 36.4–37.1; O2SAT 98–100
[2024-11-23] MEDS: IPRATROPIUM 0.5 MG/ALBUTEROL SULFATE 2.5 MG AMPUL.NEB 3 ML INHALATION ×4 (03:28→21:00)
[2024-11-23] MEDS: methylPREDNISolone SOD SUCC 40 MG VIAL 20 MG IV PUSH ×4 (05:48→23:44)
[2024-11-23] MEDS: CEFEPIME 2 GM/NS 50 ML 2 GM/50 ML BAG IVPB ×3 (05:50→21:20)
[2024-11-23] MEDS: ACYCLOVIR 400 MG TABLET PO ×3 (05:52→21:19)
[2024-11-23] MEDS: SODIUM CHLOR 3% 15 ML NEB (RESPIRATORY THERAPY) 6 ML INHALATION (05:56)
[2024-11-23 07:20] LABS: Basophils Percent Auto 0.1 % (0.2-1.2); Eosinophils Percent Auto 0.2 % (0-4.4); Hematocrit 26.9 % (42.0-52.0); Immature Granulocyte Absolute 0.07 K/mm3 (0.00-0.031); Immature Granulocyte Percent A 0.5 % (0-0.5); Lymphocytes Absolute Auto 0.82 K/mm3 (0.9-3.2); Lymphocytes Percent Auto 6.2 % (18.3-44.2); Mean Corpuscular HGB Conc 33.5 g/dl (32-36); Mean Corpuscular Hemoglobin 35.4 pg (26-34); Mean Corpuscular Volume 105.9 fl (80-100); Mean Platelet Volume 10.6 fl (7.4-10.4); Monocytes Absolute Auto 0.5 K/mm3 (0.1-0.6); Monocytes Percent Auto 3.6 % (2.6-8.5); Neutrophils Absolute Auto 11.8 K/mm3 (1.3-6.7); Neutrophils Percent Auto 89.4 % (45.5-73.1); Nucleated Red Blood Cells Perc 0.2 % (0.0-0.2); Platelet Count Result 288 k/mm3 (150-375); Red Blood Count 2.54 M/mm3 (4.6-6.20); Red Cell Distribution Width 14.4 % (11.5-14.5); White Blood Count 13.2 K/mm3 (4.5-10.0)
--- NOTE | 2024-11-23 07:28 | ECG_ITS ---
Test Date: 2024-11-23 07:32:28 Measurements Intervals [place] Rate: 93 P: 81 NV: 157 QRS: 98 QRSD: 98 T: -40 QT: 354 QTc: 441 Interpretive Statements SINUS RHYTHM WITH OCCASIONAL VENTRICULAR PREMATURE COMPLEXES BORDERLINE RIGHT AXIS DEVIATION [QRS AXIS > 90] NONSPECIFIC ST AND T WAVE ABNORMALITY Compared to ECG 11/21/2024 21:36:08 NO SIGNIFICANT CHANGES Electronically Signed On 11-25-2024 16:53:04 TRANSFER KNITTER by Chin La M.D.
[2024-11-23 07:33] LABS: Alanine Aminotransferase 30 U/L (6-50); Albumin Level 3.1 g/dL (3.5-5.1); Alkaline Phosphatase 93 U/L (38-126); Anion Gap 1 mmol/L (4-12); Aspartate Amino Transferase 22 U/L (17-59); Bilirubin,Total 0.4 mg/dL (0.2-1.3); Blood Urea Nitrogen 24 mg/dL (9-20); Calcium 8.2 mg/dL (8.4-10.2); Carbon Dioxide 29 mmol/L (22-30); Chloride 103 mmol/L (98-107); Estimated CRCL calculation 118 ml/min; Estimated Glomerular Filt Rate > 60; Glucose 301 mg/dL (65-110); Phosphorus 3.1 mg/dL (2.5-4.5); Sodium 133 mmol/L (137-145)
[2024-11-23 07:37] LABS: Vancomycin Trough 16.8 ug/mL (10.0-20.0)
[2024-11-23] MEDS: AZITHROMYCIN 500 MG/NS 250 ML 500 MG/250 ML BAG 250 MG IVPB (07:38)
[2024-11-23] MEDS: PANTOPRAZOLE 40 MG TABLET PO ×2 (07:38→21:19)
[2024-11-23] MEDS: CLOPIDOGREL BISULFATE 75 MG TABLET PO (07:38)
[2024-11-23] MEDS: INSULIN ASPART (*BKC) 100 UNITS/ML SUB-Q ×4 (07:38→21:26)
[2024-11-23 07:48] LABS: Glucose Point of Care 276 mg/dl (65-105)
[2024-11-23 08:19] LABS: Hypochromasia 1+; Macrocytosis 1+ (NORMAL); Platelet Estimate Adequate (Adequate); Schistocytes None Seen; Target Cells 1+
[2024-11-23] MEDS: VANCOMYCIN 1,250 MG/NS 250 ML 1,250 MG/250 ML BAG 167 MG IVPB ×2 (09:13→21:18)
--- NOTE | 2024-11-23 12:07 | P.PNCA_ITS ---
Progress Note: A&P Assessment and Plan (1) Elevated troponin: Code(s): R79.89 - Other specified abnormal findings of blood chemistry Status: Acute Assessment and Plan: Patient has known history of coronary artery disease He had STEMI on 01/24/23 and was seen by HCG. R He smokes <1/4 ppd. He is on oxygen at 3 l/m home and limited at walking short distances due to COPD. Review of prior office note from Dr. Carranza demonstrated Cardiovascular Procedures [employer]ial [employer]:: 12/30/22 Dr. La cath: LAD mild-mod diffuse disease in prox-mid vessel, LCx mid 30-40%, RCA 100% thrombotic mid occlusion; PCI with RACHEL to RCA. Echo/MUGA:: 12/31/22 Echo: EF 45-50%, mild LVE, grade I diastolic dysfunction, inferior akinesis, inferoseptal hypokinesis. (2) Chronic respiratory failure with hypoxia, on home oxygen therapy: Code(s): J96.11 - Chronic respiratory failure with hypoxia; Z99.81 - Dependence on supplemental oxygen Status: Acute Assessment and Plan: Sees Pulmonary required BiPAP on admission currently off BiPAP Getting steroids and antibiotics per hospitalist Service and Pulmonary (3) BiPAP (biphasic positive airway pressure) dependence: Code(s): Z99.89 - Dependence on other enabling machines and devices Status: Acute Assessment and Plan: Currently not using BiPAP (4) Chronic anticoagulation: Code(s): Z79.01 - senior living (current) use of 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 Status: Acute Assessment and Plan: Has been anticoagulation Has a history of pulmonary embolism has been on Xarelto likely due to a benefit for him to continue on this indefinitely as he has limited functional ability and may have an increased risk of having recurrent DVT PE (5) Systolic congestive heart failure: Code(s): I50.20 - Unspecified systolic (congestive) heart failure Status: Acute Assessment and Plan: Known abnormal LV function based on echocardiogram previously done as noted in my consult from [facility] where his EF was estimated at 30% currently does not have acute on chronic systolic congestive heart failure decompensation with this presentation seems more in line with his COPD decompensation Plan His LVEF continues to be 35% or less on maximal medical treatment for more than 3 months patient would benefit from ICD implantation for primary prevention of sudden cardiac Subjective Date/time seen: 11/23/24 12:07 The patient was seen examined. The pertinent information was reviewed. Continue continue treatment as per orders. 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 He was able to come off the bipap earlier. Pulonary took him off O2 as well. No n/v. No complaints of SOB or CP. Review of Systems Review of Systems: 12 systems were reviewed and are negativ e except for as per HPI. Exam Const: Other: Currently appears without distress is wearing a BiPAP is able to speak in full sentences with the BiPAP on Neck: Other: Unable to assess her JVD Resp: Other: Decreased breath sounds bilaterally Used air movement No audible wheezes There are scattered coarse breath sounds noted Cardio: Other: S1-S2 with a tachycardic rhythm soft systolic murmur difficulty here with his breathing Extrem: Other: Trace edema bilaterally Objective Data Vital Signs Vital Signs: Vital Signs - 24 hr 11/22/24 13:30 11/22/24 13:38 11/22/24 14:00 Temperature Pulse Rate 90 99 99 Respiratory Rate 20 20 Blood Pressure Pulse Oximetry Oxygen Delivery Oxygen Flow Rate 11/22/24 16:00 11/22/24 16:00 11/22/24 16:00 Temperature 36.8 C Pulse Rate 75 70 Respiratory Rate 18 Blood Pressure 113/65 Pulse Oximetry 100 100 Oxygen Delivery Nasal Cannula Oxygen Flow Rate 3 11/22/24 18:00 11/22/24 20:00 11/22/24 20:00 Temperature Pulse Rate 91 86 Respiratory Rate Blood Pressure Pulse Oximetry 99 Oxygen Delivery Nasal Cannula Oxygen Flow Rate 3 11/22/24 20:44 11/22/24 21:00 11/22/24 21:08 Temperature 36.8 C Pulse Rate 85 89 Respiratory Rate 22 H 20 Blood Pressure 135/81 Pulse Oximetry 99 97 Oxygen Delivery Nasal Cannula Oxygen Flow Rate 3 11/22/24 21:25 11/22/24 22:10 11/22/24 23:40 Temperature Pulse Rate 90 90 Respiratory Rate 20 Blood Pressure Pulse Oximetry 99 Oxygen Delivery Nasal Cannula Oxygen Flow Rate 3 11/22/24 23:48 11/23/24 00:00 11/23/24 02:06 Temperature 36.8 C Pulse Rate 66 80 61 Respiratory Rate 22 H Blood Pressure 109/61 Pulse Oximetry 100 Oxygen Delivery Oxygen Flow Rate 11/23/24 04:00 11/23/24 04:00 11/23/24 04:40 Temperature 36.9 C Pulse Rate 60 63 Respiratory Rate 22 H Blood Pressure 115/64 Pulse Oximetry 99 100 Oxygen Delivery Nasal Cannula Oxygen Flow Rate 3 11/23/24 05:55 11/23/24 05:57 11/23/24 07:35 Temperature 36.8 C Pulse Rate 65 59 L 93 Respiratory Rate 20 24 H Blood Pressure 160/86 H Pulse Oximetry 100 Oxygen Delivery Oxygen Flow Rate 11/23/24 07:49 11/23/24 07:49 11/23/24 07:53 Temperature 36.4 C L Pulse Rate 80 80 58 L Respiratory Rate 20 20 26 H Blood Pressure 160/86 H Pulse Oximetry 100 99 Oxygen Delivery Nasal Cannula Oxygen Flow Rate 5 11/23/24 08:00 Temperature Pulse Rate 89 Respiratory Rate 20 Blood Pressure Pulse Oximetry Oxygen Delivery Oxygen Flow Rate Intake/Output Intake/Output: Intake & Output 11/20/24 11/21/24 11/22/24 11/23/24 23:59 23:59 23:59 23:59 Intake Total 400 3420 880 Output Total 700 1950 500 Balance -300 1470 380 Meds/Results Medications: Active Medications Generic Name Dose Route Start Last Admin Trade Name Freq PRN Reason Stop Dose Admin Acetaminophen 650 mg 11/21/24 09:04 Acetaminophen 325 Mg Tablet PO Q4H PRN Mild Pain (1-3) or Fever Acyclovir 400 mg 11/21/24 22:00 11/23/24 05:52 Acyclovir 400 Mg Tablet PO 400 mg Q8HR ROSA MARIA Administration Albuterol/Ipratropium 3 ml 11/21/24 14:00 11/23/24 07:48 Ipratropium 0.5 Mg/Albuterol Sulfate 2.5 Mg Ampul.Neb 3 Ml INHALATION 3 ml Q6HRT ROSA MARIA Administration Clopidogrel Bisulfate 75 mg 11/22/24 09:00 11/23/24 07:38 Clopidogrel Bisulfate 75 Mg Tablet PO 75 mg DAILY ROSA MARIA Administration Dextrose 12.5 gm 11/21/24 14:49 Dextrose 50% 25 Gm/50 Ml Syringe IV PUSH PRN PRN Hypoglycemia Protocol Glucagon 1 mg 11/21/24 14:49 Glucagon For Inj 1 Mg Vial IM PRN PRN Hypoglycemia Protocol Glucose 15 gm 11/21/24 14:49 Glucose Oral Gel 15 Gm Of Glucse In 37.5 Gm Tube PO PRN PRN Hypoglycemia Protocol Azithromycin 500 mg in 250 mls @ 250 mls/hr 11/21/24 09:00 11/23/24 07:38 Zithromax IVPB 250 mls/hr Q24H ROSA MARIA Administration Cefepime HCl 2 gm in 50 mls @ 100 mls/hr 11/21/24 14:00 11/23/24 05:50 Maxipime 2 Gm/Ns 50 Ml IVPB 100 mls/hr Q8H ROSA MARIA Administration Dextrose 1,000 mls @ 100 mls/hr 11/21/24 14:49 Dextrose 5% 1,000 Ml IVPB PRN PRN Hypoglycemia Protocol Vancomycin HCl 1,250 mg in 250 mls @ 166.667 mls/hr 11/22/24 08:00 11/23/24 09:13 Vancomycin 1,250 Mg/Ns 250 Ml IVPB 167 mls/hr Q12H ROSA MARIA Administration Insulin Aspart 3 - 6 units 11/21/24 17:00 11/23/24 07:38 Insulin Aspart (*Bkc) 100 Units/Ml SUB-Q 4 units TIDWM ROSA MARIA Administration Protocol Insulin Aspart 1 - 3 units 11/21/24 21:00 11/22/24 21:05 Insulin Aspart (*Bkc) 100 Units/Ml SUB-Q 3 units HS ROSA MARIA Administration Protocol Melatonin 3 mg 11/22/24 21:00 11/22/24 21:38 Melatonin 3 Mg Tablet PO 3 mg HS ROSA MARIA Administration Methylprednisolone Sodium Succinate 20 mg 11/22/24 12:00 11/23/24 05:48 Methylprednisolone Sod Succ 40 Mg Vial IV PUSH 20 mg Q6HR ROSA MARIA Administration Montelukast Sodium 10 mg 11/21/24 21:00 11/22/24 21:07 Montelukast Sodium 10 Mg Tablet PO 10 mg HS ROSA MARIA Administration Mycophenolate Mofetil 1,000 mg 11/21/24 21:00 11/22/24 09:27 Mycophenolate Mofetil 250 Mg Capsule PO 1,000 mg Q12H ROSA MARIA Administration Pantoprazole Sodium 40 mg 11/21/24 21:00 11/23/24 07:38 Pantoprazole 40 Mg Tablet PO 40 mg Q12H ROSA MARIA Administration Perflutren Lipid Microsphere 0 ml 11/21/24 14:48 Perflutren Lipid Microspheres 1.5 Ml Vial Diluted To 10 Ml Total Volume IV PUSH 11/24/24 14:48 ONCE PRN adequate visualization Protocol Rivaroxaban 20 mg 11/22/24 17:00 11/22/24 17:53 Rivaroxaban 20 Mg Tablet PO 20 mg DAILY@1700 ROSA MARIA Administration Sodium Chloride 6 ml 11/22/24 05:00 11/23/24 05:56 Sodium Chlor 3% 15 Ml Neb (Respiratory Therapy) INHALATION 11/24/24 05:01 6 ml DAILY@0500 ROSA MARIA Administration Tacrolimus 0.5 mg 11/22/24 17:00 11/22/24 17:58 Tacrolimus 0.5 Mg Capsule PO 0.5 mg Q48H ROSA MARIA Administration Radiology Results: ITS Impressions Chest X-Ray 11/21/24 07:07 IMPRESSION: Mild new patchy nodular infiltrate in the left mid and lower lung zones, suggesting pneumonia Severe COPD Chronic severe right upper lobe atelectasis and scarring, possible cavitation Labs Labs: Laboratory Results - last 24 hr 11/22/24 11/22/24 11/22/24 14:09 16:17 19:11 WBC RBC Hgb Hct MCV MCH MCHC RDW Plt Count MPV Immature Gran % (Auto) Neut % (Auto) Lymph % (Auto) [place] % (Auto) Eos % (Auto) Baso % (Auto) Lymph # (Auto) [place] # (Auto) Eos # (Auto) Baso # (Auto) Abs Immat Gran (auto) Absolute Neuts (auto) Absolute Nucleated RBC Nucleated RBC % Platelet Estimate Hypochromasia Macrocytosis Target Cells Schistocytes Sodium Potassium Chloride Carbon Dioxide Anion Gap BUN Creatinine Estim Creat Clear Calc Estimated GFR Glucose POC Capillary Glucose 225 H 102 367 H Calcium Phosphorus Magnesium Total Bilirubin AST ALT Alkaline Phosphatase Total Protein Albumin Vancomycin Trough 11/23/24 11/23/24 07:09 07:36 WBC 13.2 H RBC 2.54 L Hgb 9.0 L Hct 26.9 L MCV 105.9 H MCH 35.4 H MCHC 33.5 RDW 14.4 Plt Count 288 MPV 10.6 H Immature Gran % (Auto) 0.5 Neut % (Auto) 89.4 H Lymph % (Auto) 6.2 L [place] % (Auto) 3.6 Eos % (Auto) 0.2 Baso % (Auto) 0.1 L Lymph # (Auto) 0.82 L [place] # (Auto) 0.5 Eos # (Auto) 0.0 Baso # (Auto) 0.0 Abs Immat Gran (auto) 0.07 H Absolute Neuts (auto) 11.8 H Absolute Nucleated RBC 0.030 H Nucleated RBC % 0.2 Platelet Estimate Adequate Hypochromasia 1+ Macrocytosis 1+ Target Cells 1+ Schistocytes None seen Sodium 133 L Potassium 4.0 Chloride 103 Carbon Dioxide 29 Anion Gap 1 L BUN 24 H Creatinine 0.50 L Estim Creat Clear Calc 118 Estimated GFR > 60 Glucose 301 H POC Capillary Glucose 276 H Calcium 8.2 L Phosphorus 3.1 Magnesium 2.0 Total Bilirubin 0.4 AST 22 ALT 30 Alkaline Phosphatase 93 Total Protein 6.0 L Albumin 3.1 L Vancomycin Trough 16.8
[2024-11-23 12:22] LABS: Glucose Point of Care 314 mg/dl (65-105)
[2024-11-23] MEDS: ALBUTEROL SULFATE NEB 2.5 MG/3 ML INH 1.25 MG INHALATION (12:24)
--- NOTE | 2024-11-23 12:47 | P.PNPL_ITS ---
Progress Note: A&P Assessment and Plan (1) COPD (chronic obstructive pulmonary disease): Qualifiers: COPD type: COPD with acute exacerbation Qualified Code(s): J44.1 - Chronic obstructive pulmonary disease with (acute) exacerbation Code(s): J44.9 - Chronic obstructive pulmonary disease, unspecified Status: Acute Assessment and Plan: GOLD grade 3 group E COPD 44 pack year tobacco use, currently smoking, PFTs 08/15/2023 with FEV1 1.32 L, 35% predicted, ratio 36%. No bronchodilator response, hyperinflation, severely decreased DLCO that remain moderately decreased when adjusted for alveolar volume. CT scan of the chest 10/23/2024 with severe panlobular emphysema. Chronic hypoxemic respiratory failure requiring 5 L nasal cannula at night. Currently the patient states he has worsening shortness of breath at rest and dyspnea on exertion with no fever, chills, rigors, change in cough or change in phlegm. He also had worsening oxygenation. Patient was treated with bronchodilators and steroids and says that he is much better after 24 hours of treatment. COVID, influenza, RSV RT PCR studies negative. Plan: I will treat for COPD exacerbation although he has a somewhat atypical presentation without any change in cough or change in phlegm production. I will also treat him for possible pneumonia. I will decrease his Solu-Medrol to 20 mg IV q.6 hours, I will continue bronchodilators with DuoNebs q.6 hours. Continue montelukast 10 a day. The patient has a history of Pseudomonas in his phlegm and currently is on cefepime, vancomycin and azithromycin all day 2. I will continue today. I will send a respiratory pathogen panel to [facility]. Regarding his immunosuppression for his bone marrow transplant and chronic fifhw-uncgdm-uxmk disease I will hold his mycophenolate and his tacro Lyme is until he has made continued clinical improvement. I will perform an overnight oximetry on 3 L nasal cannula. 11/23/23: Patient says he is better. Says he is breathing back to his normal. States his phlegm production is back to his normal. He has no hemoptysis. When I enter the room he is on 3 L nasal cannula saturations 99%. I decreased him to room air and after 15 minutes he desatted to 88 and was placed back on 2 L nasal cannula. His white blood cell count is 13.2, his creatinine is 0.5, he is afebrile. Patient had an overnight oximetry on 3 L nasal cannula with recording duration of 5 hours and 56 minutes, average saturation 99%, low saturation 90%, time with saturation less than or equal to 88% was 0 minutes, oxygen desaturation index 0.5. Plan: I will continue Solu-Medrol 20 q6, DuoNebs q.6 hours, montelukast 10 q.day. continue treatment for pneumonia with vancomycin, cefepime and azithromycin. I will order CT scan of the chest to assess his infiltrates. I have reordered the respiratory pathogen panel and discussed with the nurse. Goal saturation 90-94%. Wean oxygen accordingly. 3 L oxygen at night is adequate. Discussed with Dr. Sutherland. Will follow with you. (2) Mycobacterium avium complex: Code(s): A31.0 - Pulmonary mycobacterial infection Status: Acute Assessment and Plan: The patient tells me he has completed all treatment for his pulmonary MAC disease that is being managed through [facility]. Last note from [facility] discharge summary states that the patient should still be on azithromycin 500 q.day, ethambutol 612 100 q.day and amikacin 700 Saturday and Saturday. Patient is also listed as taking clofazamine. Will try to obtain [facility] notes. (3) Chronic twsxc-zkulpy-onon disease: Code(s): D89.811 - Chronic xawmi-zhtkkx-baiv disease Status: Acute Assessment and Plan: Patient is on mycophenolate 1 g BD he 0 b.i.d. and tacrolimus 0.5 mg PO Q ,, Plan: as mentioned above the patient may have a bacterial pneumonia and at this time will hold the mycophenolate and tacrolimas. He is on steroids for possible COPD exacerbation at Solu-Medrol 20 q.6. Subjective Date/time seen: 11/23/24 12:47 Interval history: 11/22/2024: this is a new pulmonary consult for shortness of breath. 59-year-old with a history of AML status post bone marrow transplant with qaybx-oipkav-urkj disease, congestive heart failure, COPD, non tuberculous mycobacterial lung disease. Patient was followed in the Pulmonary Clinic until 07/18/2023 when the complexity of his bone marrow transplant, COPD and non tuberculous mycobacterial lung disease warranted referral to [facility]. He has been followed by [facility] for many years. Last note I have from [facility]. 08/18/2024: [facility] clinic follow-up: presents today for post hospital follow-up. 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 His amikacin has been on hold, last dose on Saturday, due to increase in his creatinine. Home health is not drawn amikacin peaks or trough since discharge. He reports no hearing changes. He remains on azithromycin and ethambutol. Denies any vision changes. No fever chills or night sweats. Chronic shortness of breath that is at his baseline. He has a good appetite and is eating well. Labs: Creatinine 0.78 on 08/18/2024. Assessment and plan: Current NTMLD regimen: Azithromycin 500 p.o. q.day started on 07/07/2024. Ethambutol 1200 mg p.o. q.day started on 07/07/2024. Amikacin 700 mg IV on Saturday and Fridays started 07/22/2024, currently on hold. Clinically doing well on exam. Respiratory symptoms at baseline. He is still smoking but states only a few puffs a day. Plan for at least 2-3 more weeks of IV amikacin. Continue ethambutol and azithromycin. He QTC improved after changing voriconazole to Isovuconazole. Plan to start clofazamine. Continue airway clearance with Aerobika and hypertonic saline. Follow-up with Pulmonary on 08/24/2024 as scheduled. Return in 8 weeks. Patient admitted to [facility] on 11/15 with food stuck in his esophagus and underwent EGD with removal. Discharged on 11/18/2024. On 11/19/2024 the patient developed shortness of breath and then hypoxemia. his symptoms worsened and he presented to the emergency department on 11/21/2024. He denied fever, chills, rigors, change in his chronic cough and he had no phlegm production or hemoptysis. His shortness of breath was at rest and with any activity. He had worsening oxygenation and is usually on no oxygen at rest but on 4 L saturations were 88%. Patient presented to the emergency department. EMS had placed him on CPAP. His blood pressure is 143/76, heart rate 124, he was on BiPAP in the emergency department. His white blood cell count was 13.5 with eosinophils 0.4%. His creatinine was 0.7, his BNP was 5710. His COVID, influenza and RSV RT PCR study was negative. ABG on BiPAP 12, pressures 12/6 and 30% was 7.36/55/86. Chest x-ray compared to 10/23/2024 showed a new mild patchy infiltrate left mid and lower lung zone, right upper lobe scarring with no change. 11/22/2024: Overall the patient tells me that his shortness of breath is a little bit better. His oxygenation has improved. When I enter the room he was on 3 L nasal cannula with saturations 100%. I decreased him to room air and his saturations remain 96 after 12 minutes. His white blood cell count is 13.3, creatinine is 0.7. 11/23/23: Patient says he is better. Says he is breathing back to his normal. States his phlegm production is back to his normal. He has no hemoptysis. When I enter the room he is on 3 L nasal cannula saturations 99%. I decreased him to room air and after 15 minutes he desatted to 88 and was placed back on 2 L nasal cannula. His white blood cell count is 13.2, his creatinine is 0.5, he is afebrile. Patient had an overnight oximetry on 3 L nasal cannula with recording duration of 5 hours and 56 minutes, average saturation 99%, low saturation 90%, time with saturation less than or equal to 88% was 0 minutes, oxygen desaturation index 0.5. DATA: 10/23/2025: Clinical Indication: Pneumonia CT Scan of the Chest with Contrast: Technique: Contiguous sections were acquired throughout the chest after intravenous administration of 75 cc of Omnipaque 350. Dose reduction technique was used on this scan by utilizing automated exposure control and iterative reconstruction technique. The dose-length product (DLP) was 177.42 mGy-cm. COMPARISON: 07/21/2024 Findings: There is no evidence of any significant mediastinal, hilar or axillary lymphadenopathy. There is no filling defect in the pulmonary arterial tree to suggest pulmonary embolus. There is no evidence of aortic dissection or aneurysm. There is no evidence of pleural or pericardial effusion. Extensive irregular right apical consolidation with areas of cavitation versus bronchiectasis versus necrotic change are similar to prior exam. Stable focal pleural-based irregular consolidation in the posterior left lung apex. Stable small probable irregular pulmonary nodules more inferiorly in the right upper lobe patchy airspace consolidation/opacities in the superior segment left lower lobe are stable to minimally improved. Stable focal scarring the posterior aspect of the right lower lobe (axial image 92). There is increased airspace consolidation at the left lung base posteriorly, which could reflect pneumonia versus atelectasis or scarring. Stable airspace consolidation at the right lung base. Additional scattered subcentimeter nodules in the lingula and left lower lobe are unchanged. There is advanced emphysema. Small amount of debris present dependently in the trachea. Images through the upper abdomen reveal no abnormalities. Impression: Extensive irregular right apical consolidation with areas of cavitation versus bronchiectasis or possibly necrotic change are similar to prior exam. Multiple additional areas of irregular consolidation and/or nodularity throughou t the lungs, largely stable from prior exam, but with focal worsening at the left lung base. Vascular fact chronic postinflammatory change with additional new infection or atelectasis or scarring at the left lung base. Clinical correlation advised. Underlying advanced emphysema. 07/21/24: EXAMINATION: CTA chest PE protocol DATE: 07/21/2024 21:53 INDICATION: Shortness of breath. TECHNIQUE: Computed tomography angiography (CTA) of the chest was performed with 100 mL Omnipaque-350 intravenous contrast timed to evaluate the pulmonary arteries. Coronal maximum intensity projection 3D-reconstructions were created by the technologist. Automated exposure control and iterative reconstruction technique were employed. The dose-length product was 501.49 mGy-cm. COMPARISON: Chest CT 05/28/2024 FINDINGS: There is moderate emphysema. There are airspace opacities with cavitation in right upper lobe. There are scattered smaller airspace opacities in the upper lobes and lower lobes. There is mucous plugging in the left lower lobe. There is partial collapse of right middle lobe. No pleural effusion. The heart size is normal. There are coronary artery calcifications. No pericardial effusion. There is no pulmonary embolus. There is mild thoracic spondylosis. IMPRESSION: 1. No pulmonary embolus. 2. Multifocal pneumonia, worsened from 05/28/2024. 3. Moderate emphysema. 10/25/2023: This is a 6 minute walk test. The test was performed and interpreted in accordance with the 2014 ERS/ATS task force guidelines. Findings: The patient's resting room air oxygen saturation measured by pulse oximetry was 96% and heart rate was 81 bpm. Patient ambulated for 305 meters and oxygen saturation remained 93 to 95%. Heart rate at the end of the study was 116 bpm. The patient did not qualify for supplemental oxygen at rest or with ambulation. Compared to 6 minute walk on 05/13/2023 the ambulated distance was the same at 305 m and the luma oxygen saturation was the same at 93%. 10/03/2023: Overnight oximetry on 4 L. Recording duration 7 hours and 43 minutes. Basal saturation 94.9%. High saturation 100. Low saturation 87%. Time with saturation less than or equal to 88% was 43 seconds. Oxygen desaturation index was 10. I will continue 4 L nasal cannula at night. 08/15/2023: 08/15/23: PFTs The test was performed and results interpreted in accordance with the 2019 and 2005 ATS/ERS Task Force guidelines respectively using the Global Lung Function Initiative-2012 reference equations. Patient demonstrated good effort and cooperation. Reproducibility criteria were met. The quality of the pre bronchodilator spirometry maneuver was Grade A and post bronchodilator spirometry maneuver was Grade A.? Of note, patient was only able to perform 1 plethysmography maneuver despite 3 attempts in good coaching. Findings: Spirometry:? There is decreased maximal expiratory airflow at all lung volumes with concave expiratory flow tracing.? The contour the inspiratory flow tracing is normal.? The pre bronchodilator FVC is 3.62 L, 75% predicted.? The pre br onchodilator FEV1 is 1.32 L, 35% predicted.? The pre bronchodilator FEV1: FVC ratio is 36%.? The post bronchodilator FVC is 3.90 L, representing an 8% increase.? The post bronchodilator FEV1 is 1.32 L, representing no change.? The post bronchodilator FEV1: FVC ratio is 34%.? Plethysmography:? The total lung capacity is 10.39 L, 148% predicted.? The functional residual capacity is 7.47 L, 207% predicted.? The residual volume is 6.77 L, 313% predicted.? Diffusing capacity: The diffusing capacity unadjusted for hemoglobin and carboxyhemoglobin is 10.5, 36% predicted.? The diffusing capacity adjusted for alveolar volume is 1.96, 45% predicted.? In comparison to previous pulmonary function testing performed on 06/12/2021 the post bronchodilator FVC is unchanged from 3.95 L to 3.90 L.? The post bronchodilator FEV1 is unchanged from 1.29 L to 1.32 L.? The total lung capacity is increased from 7.80 L to 10.39 L.? The functional residual capacity is unchanged from 6.76 L to 7.47 L.? The residual volume is increased from 3.51 L to 6.77 L.? The diffusing capacity unadjusted for hemoglobin and carboxyhemoglobin is increased from 8.9 to 10.5.? The diffusing capacity adjusted for alveolar volume is unchanged from 1.80 to 1.96. Impression: There is a severe obstructive abnormality without significant improvement after inhaling a single dose of albuterol. The increase in residual volume is consistent with air trapping from an obstructive abnormality.? Hyperinflation is present as demonstrated by the increase in functional residual capacity and total lung capacity and is consistent with an obstructive abnormality. The diffusing capacity unadjusted for hemoglobin and carboxyhemoglobin is severely decreased and remains moderately decreased when adjusted for alveolar volume. In comparison to previous pulmonary function testing on 06/12/2021 there has been a greater than anticipated time dependent increase in the total lung capacity, residual volume and diffusing capacity unadjusted for hemoglobin and carboxyhemoglobin with no significant change in the FVC, FEV1, functional residual capacity and diffusing capacity adjusted for alveolar volume.? Clinical correlation is recommended. Review of Systems Constitutional: Constitutional: Reports no additional constitutional complaints Eyes: Eyes: Reports no additional eye complaints ENT: Reports system reviewed and no additional complaints, except as documented Cardiovascular: Cardiovascular: Reports no additional cardiovascular complaints Respiratory: Respiratory: Reports no additional respiratory complaints Gastrointestinal: Gastrointestinal: Reports no additional gastrointestinal complaints Musculoskeletal: Musculoskeletal: Reports no additional musculoskeletal complaints Neurologic: Reports system reviewed and no additional complaints, except as documented Psychiatric: Psychiatric: Reports no additional psychiatric complaints Endocrine: Endocrine: Reports no additional endocrine complaints Hematologic/Lymphatic: Hematologic/Lymphatic: Reports no additional hematologic/lymphatic complaints Allergic/Immunologic: Allergic/Immunologic: Reports no additional allergic/immunologic complaints Exam Const: General: cooperative, healthy appearing and comfortable Orientation/consciousness: oriented to person, oriented to place and oriented to time HENMT: Head: normal to inspection Ears: hearing grossly normal bilaterally Eyes: General: appearance normal, both eyes and all related structures Neck: Neck: normal visual inspection Chest: Chest palpation & inspection: normal inspection of the chest Resp: Effort & Inspection: normal respiratory effort and able to speak in complete sentences Auscultation: no crackles, no rales, no rhonchi, no wheezes and diminished lung sounds Cardio: Jugular venous distension: no JVD GI: Inspection: normal to inspection Skin: General skin exam: normal color Neuro: General: oriented to person, oriented to place and oriented to time Extrem: General: normal to inspection Psych: Appearance: grossly normal Objective Data Vital Signs Vital Signs: Vital Signs - 24 hr 11/22/24 13:30 11/22/24 13:38 11/22/24 14:00 Temperature Pulse Rate 90 99 99 Respiratory Rate 20 20 Blood Pressure Pulse Oximetry Oxygen Delivery Oxygen Flow Rate 11/22/24 16:00 11/22/24 16:00 11/22/24 16:00 Temperature 36.8 C Pulse Rate 75 70 Respiratory Rate 18 Blood Pressure 113/65 Pulse Oximetry 100 100 Oxygen Delivery Nasal Cannula Oxygen Flow Rate 3 11/22/24 18:00 11/22/24 20:00 11/22/24 20:00 Temperature Pulse Rate 91 86 Respiratory Rate Blood Pressure Pulse Oximetry 99 Oxygen Delivery Nasal Cannula Oxygen Flow Rate 3 11/22/24 20:44 11/22/24 21:00 11/22/24 21:08 Temperature 36.8 C Pulse Rate 85 89 Respiratory Rate 22 H 20 Blood Pressure 135/81 Pulse Oximetry 99 97 Oxygen Delivery Nasal Cannula Oxygen Flow Rate 3 11/22/24 21:25 11/22/24 22:10 11/22/24 23:40 Temperature Pulse Rate 90 90 Respiratory Rate 20 Blood Pressure Pulse Oximetry 99 Oxygen Delivery Nasal Cannula Oxygen Flow Rate 3 11/22/24 23:48 11/23/24 00:00 11/23/24 02:06 Temperature 36.8 C Pulse Rate 66 80 61 Respiratory Rate 22 H Blood Pressure 109/61 Pulse Oximetry 100 Oxygen Delivery Oxygen Flow Rate 11/23/24 04:00 11/23/24 04:00 11/23/24 04:40 Temperature 36.9 C Pulse Rate 60 63 Respiratory Rate 22 H Blood Pressure 115/64 Pulse Oximetry 99 100 Oxygen Delivery Nasal Cannula Oxygen Flow Rate 3 11/23/24 05:55 11/23/24 05:57 11/23/24 07:35 Temperature 36.8 C Pulse Rate 65 59 L 93 Respiratory Rate 20 24 H Blood Pressure 160/86 H Pulse Oximetry 100 Oxygen Delivery Oxygen Flow Rate 11/23/24 07:49 11/23/24 07:49 11/23/24 07:53 Temperature 36.4 C L Pulse Rate 80 80 58 L Respiratory Rate 20 20 26 H Blood Pressure 160/86 H Pulse Oximetry 100 99 Oxygen Delivery Nasal Cannula Oxygen Flow Rate 5 11/23/24 08:00 11/23/24 12:00 11/23/24 12:24 Temperature 36.6 C Pulse Rate 89 81 Respiratory Rate 20 18 Blood Pressure 128/71 Pulse Oximetry 100 98 Oxygen Delivery Nasal Cannula Oxygen Flow Rate 3 11/23/24 12:24 11/23/24 12:37 Temperature Pulse Rate 101 H 96 Respiratory Rate 20 20 Blood Pressure Pulse Oximetry Oxygen Delivery Oxygen Flow Rate Intake/Output Intake/Output: Intake & Output 11/20/24 11/21/24 11/22/24 11/23/24 23:59 23:59 23:59 23:59 Intake Total 400 3420 880 Output Total 700 1950 500 Balance -300 1470 380 Meds/Results Medications: Active Medications Generic Name Dose Route Start Last Admin Trade Name Freq PRN Reason Stop Dose Admin Acetaminophen 650 mg 11/21/24 09:04 Acetaminophen 325 Mg Tablet PO Q4H PRN Mild Pain (1-3) or Fever Acyclovir 400 mg 11/21/24 22:00 11/23/24 05:52 Acyclovir 400 Mg Tablet PO 400 mg Q8HR ROSA MARIA Administration Albuterol/Ipratropium 3 ml 11/21/24 14:00 11/23/24 07:48 Ipratropium 0.5 Mg/Albuterol Sulfate 2.5 Mg Ampul.Neb 3 Ml INHALATION 3 ml Q6HRT ROSA MARIA Administration Clopidogrel Bisulfate 75 mg 11/22/24 09:00 11/23/24 07:38 Clopidogrel Bisulfate 75 Mg Tablet PO 75 mg DAILY ROSA MARIA Administration Dextrose 12.5 gm 11/21/24 14:49 Dextrose 50% 25 Gm/50 Ml Syringe IV PUSH PRN PRN Hypoglycemia Protocol Glucagon 1 mg 11/21/24 14:49 Glucagon For Inj 1 Mg Vial IM PRN PRN Hypoglycemia Protocol Glucose 15 gm 11/21/24 14:49 Glucose Oral Gel 15 Gm Of Glucse In 37.5 Gm Tube PO PRN PRN Hypoglycemia Protocol Azithromycin 500 mg in 250 mls @ 250 mls/hr 11/21/24 09:00 11/23/24 07:38 Zithromax IVPB 250 mls/hr Q24H ROSA MARIA Administration Cefepime HCl 2 gm in 50 mls @ 100 mls/hr 11/21/24 14:00 11/23/24 05:50 Maxipime 2 Gm/Ns 50 Ml IVPB 100 mls/hr Q8H ROSA MARIA Administration Dextrose 1,000 mls @ 100 mls/hr 11/21/24 14:49 Dextrose 5% 1,000 Ml IVPB PRN PRN Hypoglycemia Protocol Vancomycin HCl 1,250 mg in 250 mls @ 166.667 mls/hr 11/22/24 08:00 11/23/24 09:13 Vancomycin 1,250 Mg/Ns 250 Ml IVPB 167 mls/hr Q12H ROSA MARIA Administration Insulin Aspart 3 - 6 units 11/21/24 17:00 11/23/24 07:38 Insulin Aspart (*Bkc) 100 Units/Ml SUB-Q 4 units TIDWM ROSA MARIA Administration Protocol Insulin Aspart 1 - 3 units 11/21/24 21:00 11/22/24 21:05 Insulin Aspart (*Bkc) 100 Units/Ml SUB-Q 3 units HS ROSA MARIA Administration Protocol Melatonin 3 mg 11/22/24 21:00 11/22/24 21:38 Melatonin 3 Mg Tablet PO 3 mg HS ROSA MARIA Administration Methylprednisolone Sodium Succinate 20 mg 11/22/24 12:00 11/23/24 05:48 Methylprednisolone Sod Succ 40 Mg Vial IV PUSH 20 mg Q6HR ROSA MARIA Administration Montelukast Sodium 10 mg 11/21/24 21:00 11/22/24 21:07 Montelukast Sodium 10 Mg Tablet PO 10 mg HS ROSA MARIA Administration Mycophenolate Mofetil 1,000 mg 11/21/24 21:00 11/22/24 09:27 Mycophenolate Mofetil 250 Mg Capsule PO 1,000 mg Q12H ROSA MARIA Administration Pantoprazole Sodium 40 mg 11/21/24 21:00 11/23/24 07:38 Pantoprazole 40 Mg Tablet PO 40 mg Q12H ROSA MARIA Administration Perflutren Lipid Microsphere 0 ml 11/21/24 14:48 Perflutren Lipid Microspheres 1.5 Ml Vial Diluted To 10 Ml Total Volume IV PUSH 11/24/24 14:48 ONCE PRN adequate visualization Protocol Rivaroxaban 20 mg 11/22/24 17:00 11/22/24 17:53 Rivaroxaban 20 Mg Tablet PO 20 mg DAILY@1700 ROSA MARIA Administration Sodium Chloride 6 ml 11/22/24 05:00 11/23/24 05:56 Sodium Chlor 3% 15 Ml Neb (Respiratory Therapy) INHALATION 11/24/24 05:01 6 ml DAILY@0500 ROSA MARIA Administration Tacrolimus 0.5 mg 11/22/24 17:00 11/22/24 17:58 Tacrolimus 0.5 Mg Capsule PO 0.5 mg Q48H ROSA MARIA Administration Radiology Results: ITS Impressions Chest X-Ray 11/21/24 07:07 IMPRESSION: Mild new patchy nodular infiltrate in the left mid and lower lung zones, suggesting pneumonia Severe COPD Chronic severe right upper lobe atelectasis and scarring, possible cavitation Labs Labs: Laboratory Results - last 24 hr 11/22/24 11/22/24 11/22/24 14:09 16:17 19:11 WBC RBC Hgb Hct MCV MCH MCHC RDW Plt Count MPV Immature Gran % (Auto) Neut % (Auto) Lymph % (Auto) Troup % (Auto) Eos % (Auto) Baso % (Auto) Lymph # (Auto) Troup # (Auto) Eos # (Auto) Baso # (Auto) Abs Immat Gran (auto) Absolute Neuts (auto) Absolute Nucleated RBC Nucleated RBC % Platelet Estimate Hypochromasia Macrocytosis Target Cells Schistocytes Sodium Potassium Chloride Carbon Dioxide Anion Gap BUN Creatinine Estim Creat Clear Calc Estimated GFR Glucose POC Capillary Glucose 225 H 102 367 H Calcium Phosphorus Magnesium Total Bilirubin AST ALT Alkaline Phosphatase Total Protein Albumin Vancomycin Trough 11/23/24 11/23/24 11/23/24 07:09 07:36 11:32 WBC 13.2 H RBC 2.54 L Hgb 9.0 L Hct 26.9 L MCV 105.9 H MCH 35.4 H MCHC 33.5 RDW 14.4 Plt Count 288 MPV 10.6 H Immature Gran % (Auto) 0.5 Neut % (Auto) 89.4 H Lymph % (Auto) 6.2 L Troup % (Auto) 3.6 Eos % (Auto) 0.2 Baso % (Auto) 0.1 L Lymph # (Auto) 0.82 L Troup # (Auto) 0.5 Eos # (Auto) 0.0 Baso # (Auto) 0.0 Abs Immat Gran (auto) 0.07 H Absolute Neuts (auto) 11.8 H Absolute Nucleated RBC 0.030 H Nucleated RBC % 0.2 Platelet Estimate Adequate Hypochromasia 1+ Macrocytosis 1+ Target Cells 1+ Schistocytes None seen Sodium 133 L Potassium 4.0 Chloride 103 Carbon Dioxide 29 Anion Gap 1 L BUN 24 H Creatinine 0.50 L Estim Creat Clear Calc 118 Estimated GFR > 60 Glucose 301 H POC Capillary Glucose 276 H 314 H Calcium 8.2 L Phosphorus 3.1 Magnesium 2.0 Total Bilirubin 0.4 AST 22 ALT 30 Alkaline Phosphatase 93 Total Protein 6.0 L Albumin 3.1 L Vancomycin Trough 16.8
[2024-11-23 14:16] LABS: MRSA (PCR) NOT DETECTED (NOT DETECTE)
[2024-11-23] MEDS: ACETAMINOPHEN 325 MG TABLET 650 MG PO (14:58)
[2024-11-23] MEDS: RIVAROXABAN 20 MG TABLET PO (16:47)
--- NOTE | 2024-11-23 17:05 | PM.IMPN ---
Progress Note: A&P Assessment and Plan (1) Acute and chronic respiratory failure with hypoxia: Code(s): J96.21 - Acute and chronic respiratory failure with hypoxia Status: Acute Assessment and Plan: The patient presented to the emergency department for evaluation of worsening shortness of breath He was just discharged from [facility] a couple of days ago and he states they sent him home with abx. Records requested but no received. CXR here showing mild new patchy nodular infiltrate in the left mid and lower lung. WBC 13K and unchanged. Pulmonology consult given his complicated medical history. BCx NGTD. Hx of pseudomonas by prior sputum cultures (colonized?) MRSA nasal swab negative. Event earlier today might be related to hypoxia and/or anxiety with panic attack. Started Azithromycin, Vanco and Cefepime. Continue the same. Wean o2 more slowly. (2) Pneumonia: Qualifiers: Laterality: bilateral Lung location: lower lobe of lung Pneumonia type: due to unspecified organism Qualified Code(s): J18.9 - Pneumonia, unspecified organism Code(s): J18.9 - Pneumonia, unspecified organism Status: Acute Assessment and Plan: As above. Patient also undergoing treatment for MAC. Somewhat unclear if he has completed a course of treatment or not. BCx negative. Sputum Cx penging Patient with bacterial pneumonia and at this time will hold the mycophenolate and tacrolimas. He is on steroids for possible COPD exacerbation (3) COPD (chronic obstructive pulmonary disease): Qualifiers: COPD type: COPD with acute exacerbation Qualified Code(s): J44.1 - Chronic obstructive pulmonary disease with (acute) exacerbation Code(s): J44.9 - Chronic obstructive pulmonary disease, unspecified Status: Acute Assessment and Plan: Patient also with COPD exacerbation. Continue Solu-Medrol and bronchodilators. Wean steroids as tolerated. (4) Elevated troponin: Code(s): R79.89 - Other specified abnormal findings of blood chemistry Status: Acute Assessment and Plan: Troponin elevated to 0.11 likely due to hypoxia and tachycardia EKG showing sinus tachycardia (114), nonspecific T wave changes. Cardiology consulted. [facility] results noted from Dec 2022. Symptoms today probably Continue Plavix. Not on a statin so will add. (5) Chronic drfgc-rgjetl-cvtw disease: Code(s): D89.811 - Chronic mriba-ujoelw-altx disease Status: Acute Assessment and Plan: As above. Holding anti-rejection meds while actively infected. Would like to resume as soon as possible. Continue Acyclovir. 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 The patient's blood glucose was reviewed on 11/23 Glucose remains elevated related to the steroids. Continue AccuCheks covering with sliding scale. Hypoglycemia protocol available as needed. Continue to monitor. Advance to high dose coverage. 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 The coatings inspector had taken patient off O2 but patient developed chest tightness across his chest with difficulty taking a deep breath. No recent ischemia evaluation. Does have hx of cardiac stent placement. No radiation to the pain. He feels this sis related to his lung and not heart. Hard to take a deep breath. When RN resumed O2, he has since been breathing better . He only wears O2 at night at home Exam Narrative: AF 98.1 123/71 91 24 100% 3L Gen - NARD Chest - distant clear BS, nml RR CV - RRR S1/S2. Tele showing no significant dysrhythmias Abd - Soft, NT/ND, Positive BS Ext - No pedal edema Psych - Nml mood Skin - Warm and dry Objective Data Vital Signs Vital Signs: Vital Signs - 24 hr 11/22/24 18:00 11/22/24 20:00 11/22/24 20:00 Temperature Pulse Rate 91 86 Respiratory Rate Blood Pressure Pulse Oximetry 99 Oxygen Delivery Nasal Cannula Oxygen Flow Rate 3 11/22/24 20:44 11/22/24 21:00 11/22/24 21:08 Temperature 98.2 F Pulse Rate 85 89 Respiratory Rate 22 H 20 Blood Pressure 135/81 Pulse Oximetry 99 97 Oxygen Delivery Nasal Cannula Oxygen Flow Rate 3 11/22/24 21:25 11/22/24 22:10 11/22/24 23:40 Temperature Pulse Rate 90 90 Respiratory Rate 20 Blood Pressure Pulse Oximetry 99 Oxygen Delivery Nasal Cannula Oxygen Flow Rate 3 11/22/24 23:48 11/23/24 00:00 11/23/24 02:06 Temperature 98.2 F Pulse Rate 66 80 61 Respiratory Rate 22 H Blood Pressure 109/61 Pulse Oximetry 100 Oxygen Delivery Oxygen Flow Rate 11/23/24 04:00 11/23/24 04:00 11/23/24 04:40 Temperature 98.4 F Pulse Rate 60 63 Respiratory Rate 22 H Blood Pressure 115/64 Pulse Oximetry 99 100 Oxygen Delivery Nasal Cannula Oxygen Flow Rate 3 11/23/24 05:55 11/23/24 05:57 11/23/24 07:35 Temperature 98.2 F Pulse Rate 65 59 L 93 Respiratory Rate 20 24 H Blood Pressure 160/86 H Pulse Oximetry 100 Oxygen Delivery Oxygen Flow Rate 11/23/24 07:49 11/23/24 07:49 11/23/24 07:53 Temperature 97.5 F L Pulse Rate 80 80 58 L Respiratory Rate 20 20 26 H Blood Pressure 160/86 H Pulse Oximetry 100 99 Oxygen Delivery Nasal Cannula Oxygen Flow Rate 5 11/23/24 08:00 11/23/24 08:00 11/23/24 08:00 Temperature Pulse Rate 89 87 Respiratory Rate 20 Blood Pressure Pulse Oximetry 98 Oxygen Delivery Nasal Cannula Oxygen Flow Rate 3 11/23/24 10:00 11/23/24 12:00 11/23/24 12:00 Temperature 98 F Pulse Rate 81 81 Respiratory Rate 18 Blood Pressure 128/71 Pulse Oximetry 99 100 Oxygen Delivery Nasal Cannula Oxygen Flow Rate 3 11/23/24 12:00 11/23/24 12:24 11/23/24 12:24 Temperature Pulse Rate 107 H 101 H Respiratory Rate 20 Blood Pressure Pulse Oximetry 98 Oxygen Delivery Nasal Cannula Oxygen Flow Rate 3 11/23/24 12:37 11/23/24 14:00 11/23/24 14:11 Temperature Pulse Rate 96 87 Respiratory Rate 20 Blood Pressure Pulse Oximetry 100 Oxygen Delivery Nasal Cannula Oxygen Flow Rate 3 11/23/24 14:11 11/23/24 14:23 11/23/24 16:00 Temperature 98.1 F Pulse Rate 83 89 91 Respiratory Rate 20 20 24 H Blood Pressure 123/71 Pulse Oximetry 100 Oxygen Delivery Oxygen Flow Rate Intake/Output Intake/Output: Intake & Output 11/20/24 11/21/24 11/22/24 11/23/24 23:59 23:59 23:59 23:59 Intake Total 400 3420 1480 Output Total 700 1950 500 Balance -300 1470 980 Meds/Results Medications: Active Medications Generic Name Dose Route Start Last Admin Trade Name Freq PRN Reason Stop Dose Admin Acetaminophen 650 mg 11/21/24 09:04 11/23/24 14:58 Acetaminophen 325 Mg Tablet PO 650 mg Q4H PRN Administration Mild Pain (1-3) or Fever Acyclovir 400 mg 11/21/24 22:00 11/23/24 12:47 Acyclovir 400 Mg Tablet PO 400 mg Q8HR ROSA MARIA Administration Albuterol/Ipratropium 3 ml 11/21/24 14:00 11/23/24 14:11 Ipratropium 0.5 Mg/Albuterol Sulfate 2.5 Mg Ampul.Neb 3 Ml INHALATION 3 ml Q6HRT ROSA MARIA Administration Clopidogrel Bisulfate 75 mg 11/22/24 09:00 11/23/24 07:38 Clopidogrel Bisulfate 75 Mg Tablet PO 75 mg DAILY ROSA MARIA Administration Dextrose 12.5 gm 11/21/24 14:49 Dextrose 50% 25 Gm/50 Ml Syringe IV PUSH PRN PRN Hypoglycemia Protocol Glucagon 1 mg 11/21/24 14:49 Glucagon For Inj 1 Mg Vial IM PRN PRN Hypoglycemia Protocol Glucose 15 gm 11/21/24 14:49 Glucose Oral Gel 15 Gm Of Glucse In 37.5 Gm Tube PO PRN PRN Hypoglycemia Protocol Azithromycin 500 mg in 250 mls @ 250 mls/hr 11/21/24 09:00 11/23/24 08:38 Zithromax IVPB Infused Q24H ROSA MARIA Infusion Cefepime HCl 2 gm in 50 mls @ 100 mls/hr 11/21/24 14:00 11/23/24 13:18 Maxipime 2 Gm/Ns 50 Ml IVPB Infused Q8H ROSA MARIA Infusion Dextrose 1,000 mls @ 100 mls/hr 11/21/24 14:49 Dextrose 5% 1,000 Ml IVPB PRN PRN Hypoglycemia Protocol Vancomycin HCl 1,250 mg in 250 mls @ 166.667 mls/hr 11/22/24 08:00 11/23/24 10:43 Vancomycin 1,250 Mg/Ns 250 Ml IVPB Infused Q12H ROSA MARIA Infusion Insulin Aspart 3 - 6 units 11/21/24 17:00 11/23/24 16:47 Insulin Aspart (*Bkc) 100 Units/Ml SUB-Q 4 units TIDWM ROSA MARIA Administration Protocol Insulin Aspart 1 - 3 units 11/21/24 21:00 11/22/24 21:05 Insulin Aspart (*Bkc) 100 Units/Ml SUB-Q 3 units HS ROSA MARIA Administration Protocol Melatonin 3 mg 11/22/24 21:00 11/22/24 21:38 Melatonin 3 Mg Tablet PO 3 mg HS ROSA MARIA Administration Methylprednisolone Sodium Succinate 20 mg 11/22/24 12:00 11/23/24 16:47 Methylprednisolone Sod Succ 40 Mg Vial IV PUSH 20 mg Q6HR ROSA MARIA Administration Montelukast Sodium 10 mg 11/21/24 21:00 11/22/24 21:07 Montelukast Sodium 10 Mg Tablet PO 10 mg HS ROSA MARIA Administration Mycophenolate Mofetil 1,000 mg 11/21/24 21:00 11/22/24 09:27 Mycophenolate Mofetil 250 Mg Capsule PO 1,000 mg Q12H ROSA MARIA Administration Pantoprazole Sodium 40 mg 11/21/24 21:00 11/23/24 07:38 Pantoprazole 40 Mg Tablet PO 40 mg Q12H ROSA MARIA Administration Perflutren Lipid Microsphere 0 ml 11/21/24 14:48 Perflutren Lipid Microspheres 1.5 Ml Vial Diluted To 10 Ml Total Volume IV PUSH 11/24/24 14:48 ONCE PRN adequate visualization Protocol Rivaroxaban 20 mg 11/22/24 17:00 11/23/24 16:47 Rivaroxaban 20 Mg Tablet PO 20 mg DAILY@1700 ROSA MARIA Administration Sodium Chloride 6 ml 11/22/24 05:00 11/23/24 05:56 Sodium Chlor 3% 15 Ml Neb (Respiratory Therapy) INHALATION 11/24/24 05:01 6 ml DAILY@0500 ROSA MARIA Administration Tacrolimus 0.5 mg 11/22/24 17:00 11/22/24 17:58 Tacrolimus 0.5 Mg Capsule PO 0.5 mg Q48H ROSA MARIA Administration Radiology Results: ITS Impressions Chest X-Ray 11/21/24 07:07 IMPRESSION: Mild new patchy nodular infiltrate in the left mid and lower lung zones, suggesting pneumonia Severe COPD Chronic severe right upper lobe atelectasis and scarring, possible cavitation Labs Labs: Laboratory Results - last 24 hr 11/22/24 11/23/24 11/23/24 19:11 07:09 07:36 WBC 13.2 H RBC 2.54 L Hgb 9.0 L Hct 26.9 L MCV 105.9 H MCH 35.4 H MCHC 33.5 RDW 14.4 Plt Count 288 MPV 10.6 H Immature Gran % (Auto) 0.5 Neut % (Auto) 89.4 H Lymph % (Auto) 6.2 L Mills % (Auto) 3.6 Eos % (Auto) 0.2 Baso % (Auto) 0.1 L Lymph # (Auto) 0.82 L Mills # (Auto) 0.5 Eos # (Auto) 0.0 Baso # (Auto) 0.0 Abs Immat Gran (auto) 0.07 H Absolute Neuts (auto) 11.8 H Absolute Nucleated RBC 0.030 H Nucleated RBC % 0.2 Platelet Estimate Adequate Hypochromasia 1+ Macrocytosis 1+ Target Cells 1+ Schistocytes None seen Sodium 133 L Potassium 4.0 Chloride 103 Carbon Dioxide 29 Anion Gap 1 L BUN 24 H Creatinine 0.50 L Estim Creat Clear Calc 118 Estimated GFR > 60 Glucose 301 H POC Capillary Glucose 367 H 276 H Calcium 8.2 L Phosphorus 3.1 Magnesium 2.0 Total Bilirubin 0.4 AST 22 ALT 30 Alkaline Phosphatase 93 Total Protein 6.0 L Albumin 3.1 L Nasal MRSA (PCR) Vancomycin Trough 16.8 11/23/24 11/23/24 11:32 12:56 WBC RBC Hgb Hct MCV MCH MCHC RDW Plt Count MPV Immature Gran % (Auto) Neut % (Auto) Lymph % (Auto) Mills % (Auto) Eos % (Auto) Baso % (Auto) Lymph # (Auto) Mills # (Auto) Eos # (Auto) Baso # (Auto) Abs Immat Gran (auto) Absolute Neuts (auto) Absolute Nucleated RBC Nucleated RBC % Platelet Estimate Hypochromasia Macrocytosis Target Cells Schistocytes Sodium Potassium Chloride Carbon Dioxide Anion Gap BUN Creatinine Estim Creat Clear Calc Estimated GFR Glucose POC Capillary Glucose 314 H Calcium Phosphorus Magnesium Total Bilirubin AST ALT Alkaline Phosphatase Total Protein Albumin Nasal MRSA (PCR) Not detected Vancomycin Trough
[2024-11-23 17:16] LABS: Glucose Point of Care 303 mg/dl (65-105)
[2024-11-23] MEDS: HYDROcodone/acetaminophen (*CRX) 5-325 MG TABLET 1 TAB PO (21:19)
[2024-11-23] MEDS: MONTELUKAST SODIUM 10 MG TABLET PO (21:19)
[2024-11-23] MEDS: MELATONIN 3 MG TABLET PO (21:19)
[2024-11-23] MEDS: INSULIN GLARGINE (*BKC) 100 UNITS/ML 9 UNITS SUB-Q (21:26)
[2024-11-23 23:49] LABS: Glucose Point of Care 364 mg/dl (65-105)
[2024-11-24] VITALS (28 sets, daily range): BP systolic 125–145; BP diastolic 58–88; PULSE 57–99; RESP 16–20; TEMP 36.5–37.1; O2SAT 88–100
--- NOTE | 2024-11-24 | ECHO_ITS ---
Patient Info Name: Brday Jones Age: 59 years : 1965 Gender: Male Ht: 71 in Wt: 137 lbs BSA: 1.75 m2 HR: 99 bpm BP: 145 / 87 mmHg Technical Quality: Fair Exam Date: 11/24/2024 11:31 AM Exam Location: Echo Lab Patient Status: Inpatient Admit Date: 11/22/2024 Staff Ordering Physician: Leyda Davila PA-C Product Design Specialist: Taina Jefferson RDCS Attending Provider: Marcos Sutherland MD Referring Physician: Lola GRAY; Exam Type: CA echo doppler color flow Study Info Indications - elevated troponin Complete two-dimensional, color flow and Doppler transthoracic echocardiogram is performed. Summary 1. Complete two-dimensional, color flow and Doppler transthoracic echocardiogram is performed. 2. LV function appears to be 40-45% with inferior akinesis. This is similar to the EF in 2022. 3. RV function appears to be normal. 4. Limited study due to only the subcostal views being seen. 5. Small pericardial effusion. 6. Mild MR. 7. Both left and right atrium appeared grossly normal in size. Left Ventricle This is a limited study as the views were from the subcostal region only. There appears to be inferior akinesis with overall EF about 40-45%. Left ventricular systolic function is mildly reduced, estimated at 45-50%. Right Ventricle Right ventricular chamber dimension is normal. Right ventricular systolic function is normal. Left Atria Appears to be normal size. Right Atria Appears to be normal size. Aortic Valve Aortic valve is not well visualized. Mitral Valve There appears to be mild mitral regurgitation. Tricuspid Valve Mild TR with peak PA pressure of approximately 30. Pericardium/Pleural Small pericardial effusion. Aorta Probably normal sinus. Left Ventricular Outflow Tract Name Value Normal LVOT 2D LVOT Diameter 2.0 cm LVOT Doppler LVOT Peak Gradient 3 mmHg LVOT Mean Gradient 1 mmHg LVOT VTI 15 cm LVOT VTI/AV VTI Ratio 0.7 LVOT Stroke Volume 46 ml LVOT CO 4.2 l/min LVOT CI 2.4 l/min/m2 Mitral Valve Name Value Normal MV Doppler MV Decel [place] 897 cm/s2 MV PHT 32 ms MV Area (PHT) 6.8 cm2 4.0-5.0 MV Diastolic Function MV E Peak Velocity 100 cm/s MV A Peak Velocity 89 cm/s MV E/A 1.1 MV Decel Time 111 ms MV Annular TDI MV E/e' (Septal) 20.6 <=8.0 MV E/e' (Lateral) 8.9 <=8.0 MV E/e' (Average) 14.7 Tricuspid Valve Name Value Normal TV Regurgitation Doppler TR Peak Velocity 232 cm/s TR Peak Gradient 22 mmHg Estimated PAP/RSVP RA Pressure 10 mmHg <=5 PA Systolic Pressure 32 mmHg <36 RV Systolic Pressure 32 mmHg <36 Aortic Valve Name Value Normal AV Doppler AV Peak Velocity 115 cm/s AV Peak Gradient 5 mmHg AV Mean Gradient 3 mmHg AV VTI 23 cm AV Area (Cont Eq VTI) 2.0 cm2 >=3.0 AV Area (Cont Eq Ede) 2.2 cm2 AV Regurgitation 2D LVOT Area 3.0 cm2 Ventricles Name Value Normal LV Dimensions 2D/MM IVS Diastolic Thickness (2D) 0.7 cm 0.6-1.0 LVID Diastole (2D) 4.4 cm 4.2-5.8 LVIW Diastolic Thickness (2D) 0.7 cm 0.6-1.0 LVID Systole (2D) 3.7 cm 2.5-4.0 LVOT Diameter 2.0 cm LV Mass (2D Cubed) 100.55 g 88.00-224.00 LV Mass Index (2D Cubed) 57 g/m2 49-115 Relative Wall Thickness (2D) 0.33 LV Fractional Shortening/Ejection Fraction 2D/MM LV Fractional Shortening (2D) 16 % 25-43 LV EF (2D Teicholz) 34 % 52-72 Report Signatures
[2024-11-24] MEDS: IPRATROPIUM 0.5 MG/ALBUTEROL SULFATE 2.5 MG AMPUL.NEB 3 ML INHALATION ×4 (01:55→21:20)
[2024-11-24 04:53] LABS: Basophils Percent Auto 0.1 % (0.2-1.2); Hematocrit 27.7 % (42.0-52.0); Hemoglobin 9.2 g/dL (14.0-18.0); Immature Granulocyte Absolute 0.13 K/mm3 (0.00-0.031); Immature Granulocyte Percent A 1.1 % (0-0.5); Lymphocytes Absolute Auto 0.75 K/mm3 (0.9-3.2); Lymphocytes Percent Auto 6.6 % (18.3-44.2); Mean Corpuscular HGB Conc 33.2 g/dl (32-36); Mean Corpuscular Hemoglobin 34.8 pg (26-34); Mean Corpuscular Volume 104.9 fl (80-100); Mean Platelet Volume 10.9 fl (7.4-10.4); Monocytes Absolute Auto 0.4 K/mm3 (0.1-0.6); Monocytes Percent Auto 3.4 % (2.6-8.5); Neutrophils Percent Auto 88.8 % (45.5-73.1); Nucleated Red Blood Cells Perc 0.4 % (0.0-0.2); Platelet Count Result 330 k/mm3 (150-375); Red Blood Count 2.64 M/mm3 (4.6-6.20); Red Cell Distribution Width 14.1 % (11.5-14.5); White Blood Count 11.3 K/mm3 (4.5-10.0)
[2024-11-24 05:07] LABS: Anion Gap 1 mmol/L (4-12); Blood Urea Nitrogen 20 mg/dL (9-20); Calcium 8.1 mg/dL (8.4-10.2); Carbon Dioxide 31 mmol/L (22-30); Chloride 102 mmol/L (98-107); Estimated CRCL calculation 116 ml/min; Estimated Glomerular Filt Rate > 60; Glucose 230 mg/dL (65-110); Potassium 3.7 mmol/L (3.4-5.0); Sodium 134 mmol/L (137-145)
[2024-11-24] MEDS: CEFEPIME 2 GM/NS 50 ML 2 GM/50 ML BAG IVPB ×3 (05:36→22:30)
[2024-11-24] MEDS: ACYCLOVIR 400 MG TABLET PO ×3 (05:38→20:59)
[2024-11-24] MEDS: methylPREDNISolone SOD SUCC 40 MG VIAL 20 MG IV PUSH (05:38)
[2024-11-24] MEDS: SODIUM CHLOR 3% 15 ML NEB (RESPIRATORY THERAPY) 6 ML INHALATION (05:44)
[2024-11-24 08:12] LABS: Glucose Point of Care 271 mg/dl (65-105)
[2024-11-24] MEDS: INSULIN ASPART (*BKC) 100 UNITS/ML SUB-Q ×3 (09:47→20:58)
[2024-11-24] MEDS: AZITHROMYCIN 500 MG/NS 250 ML 500 MG/250 ML BAG 250 MG IVPB (09:49)
[2024-11-24] MEDS: VANCOMYCIN 1,250 MG/NS 250 ML 1,250 MG/250 ML BAG 166 MG IVPB ×2 (09:50→20:58)
[2024-11-24] MEDS: ATORVASTATIN 40 MG TABLET PO (09:55)
[2024-11-24] MEDS: CLOPIDOGREL BISULFATE 75 MG TABLET PO (09:55)
[2024-11-24] MEDS: PANTOPRAZOLE 40 MG TABLET PO ×2 (09:55→20:59)
--- NOTE | 2024-11-24 09:56 | PM.PNPUL ---
Progress Note: A&P Assessment and Plan (1) COPD (chronic obstructive pulmonary disease): Qualifiers: COPD type: COPD with acute exacerbation Qualified Code(s): J44.1 - Chronic obstructive pulmonary disease with (acute) exacerbation Code(s): J44.9 - Chronic obstructive pulmonary disease, unspecified Status: Acute Assessment and Plan: GOLD grade 3 group E COPD 44 pack year tobacco use, currently smoking, PFTs 08/15/2023 with FEV1 1.32 L, 35% predicted, ratio 36%. No bronchodilator response, hyperinflation, severely decreased DLCO that remain moderately decreased when adjusted for alveolar volume. CT scan of the chest 10/23/2024 with severe panlobular emphysema. Chronic hypoxemic respiratory failure requiring 5 L nasal cannula at night. Currently the patient states he has worsening shortness of breath at rest and dyspnea on exertion with no fever, chills, rigors, change in cough or change in phlegm. He also had worsening oxygenation. Patient was treated with bronchodilators and steroids and says that he is much better after 24 hours of treatment. COVID, influenza, RSV RT PCR studies negative. Plan: I will treat for COPD exacerbation although he has a somewhat atypical presentation without any change in cough or change in phlegm production. I will also treat him for possible pneumonia. I will decrease his Solu-Medrol to 20 mg IV q.6 hours, I will continue bronchodilators with DuoNebs q.6 hours. Continue montelukast 10 a day. The patient has a history of Pseudomonas in his phlegm and currently is on cefepime, vancomycin and azithromycin all day 2. I will continue today. I will send a respiratory pathogen panel to [facility]. Regarding his immunosuppression for his bone marrow transplant and chronic jgjra-hyoenh-wska disease I will hold his mycophenolate and his tacro Lyme is until he has made continued clinical improvement. I will perform an overnight oximetry on 3 L nasal cannula. 11/23/23: Patient says he is better. Says he is breathing back to his normal. States his phlegm production is back to his normal. He has no hemoptysis. When I enter the room he is on 3 L nasal cannula saturations 99%. I decreased him to room air and after 15 minutes he desatted to 88 and was placed back on 2 L nasal cannula. His white blood cell count is 13.2, his creatinine is 0.5, he is afebrile. Patient had an overnight oximetry on 3 L nasal cannula with recording duration of 5 hours and 56 minutes, average saturation 99%, low saturation 90%, time with saturation less than or equal to 88% was 0 minutes, oxygen desaturation index 0.5. Plan: I will continue Solu-Medrol 20 q6, DuoNebs q.6 hours, montelukast 10 q.day. continue treatment for pneumonia with vancomycin, cefepime and azithromycin. I will order CT scan of the chest to assess his infiltrates. I have reordered the respiratory pathogen panel and discussed with the nurse. Goal saturation 90-94%. Wean oxygen accordingly. 3 L oxygen at night is adequate. 11/24/2023: Overall the patient states he is better, he still has intermittent chest tightness requiring p.r.n. nebs. He is not sleeping well. Overall his breathing feels the same. He is without cough or phlegm production. He is afebrile. White blood cell count 11.3, creatinine 0.51. Plan: Patient has no wheezing. I will discontinue Solu-Medrol. I will continue DuoNebs q.6 hours. Will continue treatment for bacterial infection with vancomycin, cefepime and azithromycin all day 4. Respiratory pathogen panel, urine Legionella, urine pneumococcal, mycoplasma IgM all pending. Discussed with Dr. Sutherland. Will follow with you. (2) Mycobacterium avium complex: Code(s): A31.0 - Pulmonary mycobacterial infection Status: Acute Assessment and Plan: 11/23/24: The patient tells me he has completed all treatment for his pulmonary MAC disease that is being managed through [facility]. Last note from [facility] discharge summary states that the patient should still be on azithromycin 500 q.day, ethambutol 2100 q.day and amikacin 700 Saturday and Saturday. Patient is also listed as taking clofazamine. Will try to obtain [facility] notes. 11/24/24: CT scan of the chest demonstrates stable right upper lobe cavitary disease, focal left upper lobe -lingula ground-glass infiltrate new compared to 10/23/2024 a previous focal consolidation in the posterior left upper lobe is now with central cavitation compared to 10/23/2024. Patient with new cavity in the posterior portion of the left upper lobe compared to 10/23/2024. He also has ground-glass infiltrate in the left upper lobe -lingula. Given the patient's previous pulmonary MAC disease I am concerned about progression of this disease. The patient tells me he is finish treatment for his pulmonary MAC but a recent discharge summary states that he should still be receiving active treatment. The management of pulmonary MAC is beyond my scope of practice and I recommend ensuring adequate follow up with [facility] and pulmonary or transferring him to their hospital for evaluation. Dr. Sutherland will discuss further with patient. (3) Chronic wxyxv-qdhzrs-uvcg disease: Code(s): D89.811 - Chronic wfexa-mltwyy-jbrc disease Status: Acute Assessment and Plan: 11/23/24: Patient is on mycophenolate 1 g BD b.i.d. and tacrolimus 0.5 mg PO Q M,W,F Plan: as mentioned above the patient may have a bacterial pneumonia and at this time will hold the mycophenolate and tacrolimas. He is on steroids for possible COPD exacerbation at Solu-Medrol 20 q.6. 11/24/24: The patient is status post bone marrow transplant with chronic xhtsf-wbqjja-lrbj disease and is managed on mycophenolate 1 g twice a day and tacrolimus 0.5 mg every other day. Plan: Given his new cavity in his left upper lobe I will discontinue steroids today. Recommend transfer to [facility] for Oncology consultation regarding the use of these immunosuppressants in a patient with a new cavitary lung disease process and history of pulmonary MAC. Subjective Date/time seen: 11/24/24 09:56 Interval history: 11/22/2024: this is a new pulmonary consult for shortness of breath. 59-year-old with a history of AML status post bone marrow transplant with rqyjp-gchzcs-xdnt disease, congestive heart failure, COPD, non tuberculous mycobacterial lung disease. Patient was followed in the Pulmonary Clinic until 07/18/2023 when the complexity of his bone marrow transplant, COPD and non tuberculous mycobacterial lung disease warranted referral to [facility]. He has been followed by [facility] Oncology Department for many years. Last note I have from [facility]. 08/18/2024: [facility] clinic follow-up: presents today for post hospital follow-up. 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 His amikacin has been on hold, last dose on Saturday, due to increase in his creatinine. Home health is not drawn amikacin peaks or trough since discharge. He reports no hearing changes. He remains on azithromycin and ethambutol. Denies any vision changes. No fever chills or night sweats. Chronic shortness of breath that is at his baseline. He has a good appetite and is eating well. Labs: Creatinine 0.78 on 08/18/2024. Assessment and plan: Current NTMLD regimen: Azithromycin 500 p.o. q.day started on 07/07/2024. Ethambutol 1200 mg p.o. q.day started on 07/07/2024. Amikacin 700 mg IV on Saturday and Fridays started 07/22/2024, currently on hold. Clinically doing well on exam. Respiratory symptoms at baseline. He is still smoking but states only a few puffs a day. Plan for at least 2-3 more weeks of IV amikacin. Continue ethambutol and azithromycin. He QTC improved after changing voriconazole to Isovuconazole. Plan to start clofazamine. Continue airway clearance with Aerobika and hypertonic saline. Follow-up with Pulmonary on 08/24/2024 as scheduled. Return in 8 weeks. Patient admitted to [facility] on 11/15 with food stuck in his esophagus and underwent EGD with removal. Discharged on 11/18/2024. On 11/19/2024 the patient developed shortness of breath and then hypoxemia. his symptoms worsened and he presented to the emergency department on 11/21/2024. He denied fever, chills, rigors, change in his chronic cough and he had no phlegm production or hemoptysis. His shortness of breath was at rest and with any activity. He had worsening oxygenation and is usually on no oxygen at rest but on 4 L saturations were 88%. Patient presented to the emergency department. EMS had placed him on CPAP. His blood pressure is 143/76, heart rate 124, he was on BiPAP in the emergency department. His white blood cell count was 13.5 with eosinophils 0.4%. His creatinine was 0.7, his BNP was 5710. His COVID, influenza and RSV RT PCR study was negative. ABG on BiPAP 12, pressures 12/6 and 30% was 7.36/55/86. Chest x-ray compared to 10/23/2024 showed a new mild patchy infiltrate left mid and lower lung zone, right upper lobe scarring with no change. 11/22/2024: Overall the patient tells me that his shortness of breath is a little bit better. His oxygenation has improved. When I enter the room he was on 3 L nasal cannula with saturations 100%. I decreased him to room air and his saturations remain 96 after 12 minutes. His white blood cell count is 13.3, creatinine is 0.7. 11/23/23: Patient says he is better. Says he is breathing back to his normal. States his phlegm production is back to his normal. He has no hemoptysis. When I enter the room he is on 3 L nasal cannula saturations 99%. I decreased him to room air and after 15 minutes he desatted to 88 and was placed back on 2 L nasal cannula. His white blood cell count is 13.2, his creatinine is 0.5, he is afebrile. Patient had an overnight oximetry on 3 L nasal cannula with recording duration of 5 hours and 56 minutes, average saturation 99%, low saturation 90%, time with saturation less than or equal to 88% was 0 minutes, oxygen desaturation index 0.5. 11/24/2023: Overall the patient states he is better, he still has intermittent chest tightness requiring p.r.n. nebs. He is not sleeping well. Overall his breathing feels the same. He is without cough or phlegm production. He is afebrile. White blood cell count 11.3, creatinine 0.51. CT scan of the chest demonstrates stable right upper lobe cavitary disease, focal left upper lobe -lingula ground-glass infiltrate new compared to 10/23/2024: A previous focal consolidation in the posterior left upper lobe is now with central cavitation compared to 10/23/2024. DATA: 10/23/2025: Clinical Indication: Pneumonia CT Scan of the Chest with Contrast: Technique: Contiguous sections were acquired throughout the chest after intravenous administration of 75 cc of Omnipaque 350. Dose reduction technique was used on this scan by utilizing automated exposure control and iterative reconstruction technique. The dose-length product (DLP) was 177.42 mGy-cm. COMPARISON: 07/21/2024 Findings: There is no evidence of any significant mediastinal, hilar or axillary lymphadenopathy. There is no filling defect in the pulmonary arterial tree to suggest pulmonary embolus. There is no evidence of aortic dissection or aneurysm. There is no evidence of pleural or pericardial effusion. Extensive irregular right apical consolidation with areas of cavitation versus bronchiectasis versus necrotic change are similar to prior exam. Stable focal pleural-based irregular consolidation in the posterior left lung apex. Stable small probable irregular pulmonary nodules more inferiorly in the right upper lobe patchy airspace consolidation/opacities in the superior segment left lower lobe are stable to minimally improved. Stable focal scarring the posterior aspect of the right lower lobe (axial image 92). There is increased airspace consolidation at the left lung base posteriorly, which could reflect pneumonia versus atelectasis or scarring. Stable airspace consolidation at the right lung base. Additional scattered subcentimeter nodules in the lingula and left lower lobe are unchanged. There is advanced emphysema. Small amount of debris present dependently in the trachea. Images through the upper abdomen reveal no abnormalities. Impression: Extensive irregular right apical consolidation with areas of cavitation versus bronchiectasis or possibly necrotic change are similar to prior exam. Multiple additional areas of irregular consolidation and/or nodularity throughout the lungs, largely stable from prior exam, but with focal worsening at the left lung base. Vascular fact chronic postinflammatory change with additional new infection or atelectasis or scarring at the left lung base. Clinical correlation advised. Underlying advanced emphysema. 07/21/24: EXAMINATION: CTA chest PE protocol DATE: 07/21/2024 21:53 INDICATION: Shortness of breath. TECHNIQUE: Computed tomography angiography (CTA) of the chest was performed with 100 mL Omnipaque-350 intravenous contrast timed to evaluate the pulmonary arteries. Coronal maximum intensity projection 3D-reconstructions were created by the technologist. Automated exposure control and iterative reconstruction technique were employed. The dose-length product was 501.49 mGy-cm. COMPARISON: Chest CT 05/28/2024 FINDINGS: There is moderate emphysema. There are airspace opacities with cavitation in right upper lobe. There are scattered smaller airspace opacities in the upper lobes and lower lobes. There is mucous plugging in the left lower lobe. There is partial collapse of right middle lobe. No pleural effusion. The heart size is normal. There are coronary artery calcifications. No pericardial effusion. There is no pulmonary embolus. There is mild thoracic spondylosis. IMPRESSION: 1. No pulmonary embolus. 2. Multifocal pneumonia, worsened from 05/28/2024. 3. Moderate emphysema. 10/25/2023: This is a 6 minute walk test. The test was performed and interpreted in accordance with the 2014 ERS/ATS task force guidelines. Findings: The patient's resting room air oxygen saturation measured by pulse oximetry was 96% and heart rate was 81 bpm. Patient ambulated for 305 meters and oxygen saturation remained 93 to 95%. Heart rate at the end of the study was 116 bpm. The patient did not qualify for supplemental oxygen at rest or with ambulation. Compared to 6 minute walk on 05/13/2023 the ambulated distance was the same at 305 m and the luma oxygen saturation was the same at 93%. 10/03/2023: Overnight oximetry on 4 L. Recording duration 7 hours and 43 minutes. Basal saturation 94.9%. High saturation 100. Low saturation 87%. Time with saturation less than or equal to 88% was 43 seconds. Oxygen desaturation index was 10. I will continue 4 L nasal cannula at night. 08/15/2023: 08/15/23: PFTs The test was performed and results interpreted in accordance with the 2019 and 2005 ATS/ERS Task Force guidelines respectively using the Global Lung Function Initiative-2012 reference equations. Patient demonstrated good effort and cooperation. Reproducibility criteria were met. The quality of the pre bronchodilator spirometry maneuver was Grade A and post bronchodilator spirometry maneuver was Grade A.? Of note, patient was only able to perform 1 plethysmography maneuver despite 3 attempts in good coaching. Findings: Spirometry:? There is decreased maximal expiratory airflow at all lung volumes with concave expiratory flow tracing.? The contour the inspiratory flow tracing is normal.? The pre bronchodilator FVC is 3.62 L, 75% predicted.? The pre bronchodilator FEV1 is 1.32 L, 35% predicted.? The pre bronchodilator FEV1: FVC ratio is 36%.? The post bronchodilator FVC is 3.90 L, representing an 8% increase.? The post bronchodilator FEV1 is 1.32 L, representing no change.? The post bronchodilator FEV1: FVC ratio is 34%.? Plethysmography:? The total lung capacity is 10.39 L, 148% predicted.? The functional residual capacity is 7.47 L, 207% predicted.? The residual volume is 6.77 L, 313% predicted.? Diffusing capacity: The diffusing capacity unadjusted for hemoglobin and carboxyhemoglobin is 10.5, 36% predicted.? The diffusing capacity adjusted for alveolar volume is 1.96, 45% predicted.? In comparison to previous pulmonary function testing performed on 06/12/2021 the post bronchodilator FVC is unchanged from 3.95 L to 3.90 L.? The post bronchodilator FEV1 is unchanged from 1.29 L to 1.32 L.? The total lung capacity is increased from 7.80 L to 10.39 L.? The functional residual capacity is unchanged from 6.76 L to 7.47 L.? The residual volume is increased from 3.51 L to 6.77 L.? The diffusing capacity unadjusted for hemoglobin and carboxyhemoglobin is increased from 8.9 to 10.5.? The diffusing capacity adjusted for alveolar volume is unchanged from 1.80 to 1.96. Impression: There is a severe obstructive abnormality without significant improvement after inhaling a single dose of albuterol. The increase in residual volume is consistent with air trapping from an obstructive abnormality.? Hyperinflation is present as demonstrated by the increase in functional residual capacity and total lung capacity and is consistent with an obstructive abnormality. The diffusing capacity unadjusted for hemoglobin and carboxyhemoglobin is severely decreased and remains moderately decreased when adjusted for alveolar volume. In comparison to previous pulmonary function testing on 06/12/2021 there has been a greater than anticipated time dependent increase in the total lung capacity, residual volume and diffusing capacity unadjusted for hemoglobin and carboxyhemoglobin with no significant change in the FVC, FEV1, functional residual capacity and diffusing capacity adjusted for alveolar volume.? Clinical correlation is recommended. Review of Systems Constitutional: Constitutional: Reports no additional constitutional complaints Eyes: Eyes: Reports no additional eye complaints ENT: Reports system reviewed and no additional complaints, except as documented Cardiovascular: Cardiovascular: Reports no additional cardiovascular complaints Respiratory: Respiratory: Reports no additional respiratory complaints Gastrointestinal: Gastrointestinal: Reports no additional gastrointestinal complaints Musculoskeletal: Musculoskeletal: Reports no additional musculoskeletal complaints Neurologic: Reports system reviewed and no additional complaints, except as documented Psychiatric: Psychiatric: Reports no additional psychiatric complaints Endocrine: Endocrine: Reports no additional endocrine complaints Hematologic/Lymphatic: Hematologic/Lymphatic: Reports no additional hematologic/lymphatic complaints Allergic/Immunologic: Allergic/Immunologic: Reports no additional allergic/immunologic complaints Exam Const: General: cooperative, healthy appearing and comfortable Orientation/consciousness: oriented to person, oriented to place and oriented to time HENMT: Head: normal to inspection Ears: hearing grossly normal bilaterally Eyes: General: appearance normal, both eyes and all related structures Neck: Neck: normal visual inspection Chest: Chest palpation & inspection: normal inspection of the chest Resp: Effort & Inspection: normal respiratory effort and able to speak in complete sentences Auscultation: no crackles, no rales, no rhonchi, no wheezes and diminished lung sounds Cardio: Jugular venous distension: no JVD GI: Inspection: normal to inspection Skin: General skin exam: normal color Neuro: General: oriented to person, oriented to place and oriented to time Extrem: General: normal to inspection Psych: Appearance: grossly normal Objective Data Vital Signs Vital Signs: Vital Signs - 24 hr 11/23/24 10:00 11/23/24 12:00 11/23/24 12:00 Temperature 36.6 C Pulse Rate 81 81 Respiratory Rate 18 Blood Pressure 128/71 Pulse Oximetry 99 100 Oxygen Delivery Nasal Cannula Oxygen Flow Rate 3 11/23/24 12:00 11/23/24 12:24 11/23/24 12:24 Temperature Pulse Rate 107 H 101 H Respiratory Rate 20 Blood Pressure Pulse Oximetry 98 Oxygen Delivery Nasal Cannula Oxygen Flow Rate 3 11/23/24 12:37 11/23/24 14:00 11/23/24 14:11 Temperature Pulse Rate 96 87 Respiratory Rate 20 Blood Pressure Pulse Oximetry 100 Oxygen Delivery Nasal Cannula Oxygen Flow Rate 3 11/23/24 14:11 11/23/24 14:23 11/23/24 16:00 Temperature 36.7 C Pulse Rate 83 89 91 Respiratory Rate 20 20 24 H Blood Pressure 123/71 Pulse Oximetry 100 Oxygen Delivery Oxygen Flow Rate 11/23/24 16:00 11/23/24 16:00 11/23/24 18:00 Temperature Pulse Rate 85 92 Respiratory Rate Blood Pressure Pulse Oximetry 100 Oxygen Delivery Nasal Cannula Oxygen Flow Rate 3 11/23/24 20:00 11/23/24 20:00 11/23/24 20:12 Temperature 37.1 C Pulse Rate 69 83 Respiratory Rate 18 Blood Pressure 136/69 Pulse Oximetry 100 100 Oxygen Delivery Nasal Cannula Oxygen Flow Rate 3 11/23/24 21:00 11/23/24 21:09 11/23/24 22:00 Temperature Pulse Rate 79 86 74 Respiratory Rate 20 20 Blood Pressure Pulse Oximetry Oxygen Delivery Oxygen Flow Rate 11/23/24 23:17 11/24/24 00:00 11/24/24 00:00 Temperature 36.9 C Pulse Rate 62 79 Respiratory Rate 18 Blood Pressure 136/82 Pulse Oximetry 100 100 Oxygen Delivery Nasal Cannula Oxygen Flow Rate 3 11/24/24 01:56 11/24/24 02:00 11/24/24 02:02 Temperature Pulse Rate 70 57 L 77 Respiratory Rate 20 20 Blood Pressure Pulse Oximetry Oxygen Delivery Oxygen Flow Rate 11/24/24 04:00 11/24/24 04:00 11/24/24 05:43 Temperature 36.8 C Pulse Rate 63 60 Respiratory Rate 18 Blood Pressure 143/88 H Pulse Oximetry 100 100 Oxygen Delivery Nasal Cannula Oxygen Flow Rate 3 11/24/24 05:45 11/24/24 05:56 11/24/24 06:00 Temperature Pulse Rate 61 80 88 Respiratory Rate 20 20 Blood Pressure Pulse Oximetry Oxygen Delivery Oxygen Flow Rate 11/24/24 08:00 11/24/24 09:01 11/24/24 09:02 Temperature 36.5 C Pulse Rate 93 93 99 Respiratory Rate 20 20 20 Blood Pressure 145/87 H Pulse Oximetry 100 88 L Oxygen Delivery Room Air Oxygen Flow Rate 11/24/24 09:13 Temperature Pulse Rate 99 Respiratory Rate 20 Blood Pressure Pulse Oximetry Oxygen Delivery Oxygen Flow Rate Intake/Output Intake/Output: Intake & Output 11/21/24 11/22/24 11/23/24 11/24/24 23:59 23:59 23:59 23:59 Intake Total 400 3420 2860 600 Output Total 700 1950 2350 600 Balance -300 1470 510 0 Meds/Results Medications: Active Medications Generic Name Dose Route Start Last Admin Trade Name Freq PRN Reason Stop Dose Admin Acetaminophen 650 mg 11/21/24 09:04 11/23/24 14:58 Acetaminophen 325 Mg Tablet PO 650 mg Q4H PRN Administration Mild Pain (1-3) or Fever Acyclovir 400 mg 11/21/24 22:00 11/24/24 05:38 Acyclovir 400 Mg Tablet PO 400 mg Q8HR ROSA MARIA Administration Albuterol/Ipratropium 3 ml 11/21/24 14:00 11/24/24 09:01 Ipratropium 0.5 Mg/Albuterol Sulfate 2.5 Mg Ampul.Neb 3 Ml INHALATION 3 ml Q6HRT ROSA MARIA Administration Atorvastatin Calcium 40 mg 11/24/24 09:00 Atorvastatin 40 Mg Tablet PO DAILY ROSA MARIA Clopidogrel Bisulfate 75 mg 11/22/24 09:00 11/23/24 07:38 Clopidogrel Bisulfate 75 Mg Tablet PO 75 mg DAILY ROSA MARIA Administration Dextrose 12.5 gm 11/21/24 14:49 Dextrose 50% 25 Gm/50 Ml Syringe IV PUSH PRN PRN Hypoglycemia Protocol Glucagon 1 mg 11/21/24 14:49 Glucagon For Inj 1 Mg Vial IM PRN PRN Hypoglycemia Protocol Glucose 15 gm 11/21/24 14:49 Glucose Oral Gel 15 Gm Of Glucse In 37.5 Gm Tube PO PRN PRN Hypoglycemia Protocol Azithromycin 500 mg in 250 mls @ 250 mls/hr 11/21/24 09:00 11/23/24 08:38 Zithromax IVPB Infused Q24H ROSA MARIA Infusion Cefepime HCl 2 gm in 50 mls @ 100 mls/hr 11/21/24 14:00 11/24/24 06:06 Maxipime 2 Gm/Ns 50 Ml IVPB Infused Q8H ROSA MARIA Infusion Dextrose 1,000 mls @ 100 mls/hr 11/21/24 14:49 Dextrose 5% 1,000 Ml IVPB PRN PRN Hypoglycemia Protocol Vancomycin HCl 1,250 mg in 250 mls @ 166.667 mls/hr 11/22/24 08:00 11/23/24 22:48 Vancomycin 1,250 Mg/Ns 250 Ml IVPB Infused Q12H ROS[facility]IA Infusion Insulin Aspart 4 - 8 units 11/24/24 08:00 Insulin Aspart (*Bkc) 100 Units/Ml SUB-Q TIDWM [facility] Protocol Insulin Aspart 2 - 4 units 11/23/24 21:00 11/23/24 21:26 Insulin Aspart (*Bkc) 100 Units/Ml SUB-Q 4 units HS [facility] Administration Protocol Insulin Glargine 9 units 11/23/24 21:00 11/23/24 21:26 Insulin Glargine (*Bkc) 100 Units/Ml 0.15 units/kg (9 units) 9 units SUB-Q Administration HS [facility] Melatonin 3 mg 11/22/24 21:00 11/23/24 21:19 Melatonin 3 Mg Tablet PO 3 mg HS [facility] Administration Methylprednisolone Sodium Succinate 20 mg 11/22/24 12:00 11/24/24 05:38 Methylprednisolone Sod Succ 40 Mg Vial IV PUSH 20 mg Q6HR [facility] Administration Montelukast Sodium 10 mg 11/21/24 21:00 11/23/24 21:19 Montelukast Sodium 10 Mg Tablet PO 10 mg HS [facility] Administration Mycophenolate Mofetil 1,000 mg 11/21/24 21:00 11/22/24 09:27 Mycophenolate Mofetil 250 Mg Capsule PO 1,000 mg Q12H [facility] Administration Pantoprazole Sodium 40 mg 11/21/24 21:00 11/23/24 21:19 Pantoprazole 40 Mg Tablet PO 40 mg Q12H [facility] Administration Perflutren Lipid Microsphere 0 ml 11/21/24 14:48 Perflutren Lipid Microspheres 1.5 Ml Vial Diluted To 10 Ml Total Volume IV PUSH 11/24/24 14:48 ONCE PRN adequate visualization Protocol Rivaroxaban 20 mg 11/22/24 17:00 11/23/24 16:47 Rivaroxaban 20 Mg Tablet PO 20 mg DAILY@1700 [facility] Administration Tacrolimus 0.5 mg 11/22/24 17:00 11/22/24 17:58 Tacrolimus 0.5 Mg Capsule PO 0.5 mg Q48H [facility] Administration Radiology Results: ITS Impressions Chest X-Ray 11/21/24 07:07 IMPRESSION: Mild new patchy nodular infiltrate in the left mid and lower lung zones, suggesting pneumonia Severe COPD Chronic severe right upper lobe atelectasis and scarring, possible cavitation Chest CT 11/24/24 05:21 Impression: New area of groundglass opacity in the inferior left upper lobe/lingula, compatible with infectious/inflammatory process. Additional pulmonary findings are otherwise essentially unchanged, including right upper lobe consolidation with areas of cavitary change as well as scattered additional bilateral areas of focal consolidation and nodularity. Moderate emphysema. Labs Labs: Laboratory Results - last 24 hr 11/23/24 11/23/24 11/23/24 11:32 12:56 16:36 WBC RBC Hgb Hct MCV MCH MCHC RDW Plt Count MPV Immature Gran % (Auto) Neut % (Auto) Lymph % (Auto) [place] % (Auto) Eos % (Auto) Baso % (Auto) Lymph # (Auto) [place] # (Auto) Eos # (Auto) Baso # (Auto) Abs Immat Gran (auto) Absolute Neuts (auto) Absolute Nucleated RBC Nucleated RBC % Sodium Potassium Chloride Carbon Dioxide Anion Gap BUN Creatinine Estim Creat Clear Calc Estimated GFR Glucose POC Capillary Glucose 314 H 303 H Calcium Nasal MRSA (PCR) Not detected 11/23/24 11/24/24 11/24/24 21:26 04:06 08:07 WBC 11.3 H RBC 2.64 L Hgb 9.2 L Hct 27.7 L MCV 104.9 H MCH 34.8 H MCHC 33.2 RDW 14.1 Plt Count 330 MPV 10.9 H Immature Gran % (Auto) 1.1 H Neut % (Auto) 88.8 H Lymph % (Auto) 6.6 L [place] % (Auto) 3.4 Eos % (Auto) 0.0 Baso % (Auto) 0.1 L Lymph # (Auto) 0.75 L [place] # (Auto) 0.4 Eos # (Auto) 0.0 Baso # (Auto) 0.0 Abs Immat Gran (auto) 0.13 H Absolute Neuts (auto) 10.0 H Absolute Nucleated RBC 0.050 H Nucleated RBC % 0.4 H Sodium 134 L Potassium 3.7 Chloride 102 Carbon Dioxide 31 H Anion Gap 1 L BUN 20 Creatinine 0.51 L Estim Creat Clear Calc 116 Estimated GFR > 60 Glucose 230 H POC Capillary Glucose 364 H 271 H Calcium 8.1 L Nasal MRSA (PCR)
[2024-11-24 12:23] LABS: Glucose Point of Care 362 mg/dl (65-105)
--- NOTE | 2024-11-24 13:11 | P.PNIM_ITS ---
Progress Note: A&P Assessment and Plan (1) Acute and chronic respiratory failure with hypoxia: Code(s): J96.21 - Acute and chronic respiratory failure with hypoxia Status: Acute Assessment and Plan: The patient presented to the emergency department for evaluation of worsening shortness of breath He was just discharged from [place] a couple of days ago and he states they sent him home with abx. Records requested but no received. Hx of pseudomonas by prior sputum cultures (colonized?) CXR here showing mild new patchy nodular infiltrate in the left mid and lower lung. Cultures obtained and started on Vanco, Azithro and Rocephin. Rocephin changed to Cefepime on 11/21 WBC 13K and now trending down. MRSA nasal swab negative. BCx NGTD Sputum Cx negative. AFB pending Pulmonology consult and apprecaite their input CT chest showing focal consolidation of the posterior medial left upper lobe/left apex with new area of central cavitation. Stable 7 mm left upper lobe pulmonary nodule. Stable 8 mm right upper lobe pulmonary nodule. New area of groundglass opacity in the inferior left upper lobe/lingula. Stable focal nodular irregular consolidation at the extreme left lung base. There is probable moderate emphysematous change of the lungs. New cavitary lesion. Could be MAC but new since Oct 23 2024 so consider bacterial Patient is immnosuppressed. Tacrolimus and mycophenolate on hold. Pulmonary recommended transfer for ID evaluation and patient agreeable. He feels better and tolerating O2 wean. Contacted [facility] to arrange for transfer (2) Pneumonia: Qualifiers: Laterality: bilateral Lung location: lower lobe of lung Pneumonia type: due to unspecified organism Qualified Code(s): J18.9 - Pneumonia, unspecified organism Code(s): J18.9 - Pneumonia, unspecified organism Status: Acute Assessment and Plan: As above. Patient also undergoing treatment for MAC. Somewhat unclear if he has completed a course of treatment or not. BCx NGTD. Sputum Cx negative Patient with bacterial pneumonia and at this time, we are holding the mycophenolate and tacrolimas. He was on steroids for possible COPD exacerbation but these have been stopped. (3) COPD (chronic obstructive pulmonary disease): Qualifiers: COPD type: COPD with acute exacerbation Qualified Code(s): J44.1 - Chronic obstructive pulmonary disease with (acute) exacerbation Code(s): J44.9 - Chronic obstructive pulmonary disease, unspecified Status: Acute Assessment and Plan: Patient also with COPD exacerbation. Treated with Solu-Medrol and bronchodilators. Steroids stopped. (4) Elevated troponin: Code(s): R79.89 - Other specified abnormal findings of blood chemistry Status: Acute Assessment and Plan: Hx of CAD s/p stent 100% occlusion mid RCA s/p drug-eluting stent, left coronary system with nkmk-nw-hewfudrq disease (12/30/22) Troponin elevated to 0.11 likely due to hypoxia and tachycardia EKG showing sinus tachycardia (114), nonspecific T wave changes. Cardiology consulted. Continue Plavix. Was not on a statin so added (5) Chronic boetz-nmqrth-ifqo disease: Code(s): D89.811 - Chronic aalof-clfqso-lnwb disease Status: Acute Assessment and Plan: As above. Holding anti-rejection meds with active infection Resume as soon as possible. Continue Acyclovir. (6) Insulin dependent type 2 diabetes mellitus: Code(s): E11.9 - Type 2 diabetes mellitus without complications; Z79.4 - continuous churn buttermaker (current) use of insulin Status: Acute Assessment and Plan: A1c 6.2. The patient's blood glucose was reviewed on 11/24 Glucose remains elevated related to the steroids. Continue AccuCheks covering with sliding scale. Hypoglycemia protocol available as needed. last steroid dose was this morning. Continue to monitor. 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 Ihsan was SOb last night but feeling better today. No CP. Slight SOB. No n/v. He wears 5l at night chronicially. During the day, he is mostly on room air but does use up to 5L if over-exerting himself. Also wears o2 at rest for comfort or for cold weather. Exam Narrative: AF 98.2 142/80 88 16 100% 1L Gen - NARD Chest - inspiratory rhconhi in the bases with occasional expiratory wheeze. nml RR, no conversational dyspnea. CV - RRR S1/S2. Tele showing no significant dysrhythmias Abd - Soft, NT/ND, Positive BS Ext - No pedal edema Psych - Nml mood Skin - Warm and dry Objective Data Vital Signs Vital Signs: Vital Signs - 24 hr 11/23/24 14:00 11/23/24 14:11 11/23/24 14:11 Temperature Pulse Rate 87 83 Respiratory Rate 20 Blood Pressure Pulse Oximetry 100 Oxygen Delivery Nasal Cannula Oxygen Flow Rate 3 11/23/24 14:23 11/23/24 16:00 11/23/24 16:00 Temperature 98.1 F Pulse Rate 89 91 Respiratory Rate 20 24 H Blood Pressure 123/71 Pulse Oximetry 100 100 Oxygen Delivery Nasal Cannula Oxygen Flow Rate 3 11/23/24 16:00 11/23/24 18:00 11/23/24 20:00 Temperature Pulse Rate 85 92 Respiratory Rate Blood Pressure Pulse Oximetry 100 Oxygen Delivery Nasal Cannula Oxygen Flow Rate 3 11/23/24 20:00 11/23/24 20:12 11/23/24 21:00 Temperature 98.7 F Pulse Rate 69 83 79 Respiratory Rate 18 20 Blood Pressure 136/69 Pulse Oximetry 100 Oxygen Delivery Oxygen Flow Rate 11/23/24 21:09 11/23/24 22:00 11/23/24 23:17 Temperature 98.5 F Pulse Rate 86 74 62 Respiratory Rate 20 18 Blood Pressure 136/82 Pulse Oximetry 100 Oxygen Delivery Oxygen Flow Rate 11/24/24 00:00 11/24/24 00:00 11/24/24 01:56 Temperature Pulse Rate 79 70 Respiratory Rate 20 Blood Pressure Pulse Oximetry 100 Oxygen Delivery Nasal Cannula Oxygen Flow Rate 3 11/24/24 02:00 11/24/24 02:02 11/24/24 04:00 Temperature Pulse Rate 57 L 77 Respiratory Rate 20 Blood Pressure Pulse Oximetry 100 Oxygen Delivery Nasal Cannula Oxygen Flow Rate 3 11/24/24 04:00 11/24/24 05:43 11/24/24 05:45 Temperature 98.3 F Pulse Rate 63 60 61 Respiratory Rate 18 20 Blood Pressure 143/88 H Pulse Oximetry 100 Oxygen Delivery Oxygen Flow Rate 11/24/24 05:56 11/24/24 06:00 11/24/24 08:00 Temperature 97.7 F Pulse Rate 80 88 93 Respiratory Rate 20 20 Blood Pressure 145/87 H Pulse Oximetry 100 Oxygen Delivery Oxygen Flow Rate 11/24/24 09:01 11/24/24 09:02 11/24/24 09:13 Temperature Pulse Rate 93 99 99 Respiratory Rate 20 20 20 Blood Pressure Pulse Oximetry 88 L Oxygen Delivery Room Air Oxygen Flow Rate 11/24/24 11:06 11/24/24 12:00 Temperature 98.2 F Pulse Rate 88 Respiratory Rate 16 Blood Pressure 142/80 H Pulse Oximetry 98 100 Oxygen Delivery Nasal Cannula Oxygen Flow Rate 1 Intake/Output Intake/Output: Intake & Output 11/21/24 11/22/24 11/23/24 11/24/24 23:59 23:59 23:59 23:59 Intake Total 400 3420 2860 840 Output Total 700 1950 2350 600 Balance -300 1470 510 240 Meds/Results Medications: Active Medications Generic Name Dose Route Start Last Admin Trade Name Freq PRN Reason Stop Dose Admin Acetaminophen 650 mg 11/21/24 09:04 11/23/24 14:58 Acetaminophen 325 Mg Tablet PO 650 mg Q4H PRN Administration Mild Pain (1-3) or Fever Acyclovir 400 mg 11/21/24 22:00 11/24/24 05:38 Acyclovir 400 Mg Tablet PO 400 mg Q8HR [facility] Administration Albuterol/Ipratropium 3 ml 11/21/24 14:00 11/24/24 09:01 Ipratropium 0.5 Mg/Albuterol Sulfate 2.5 Mg Ampul.Neb 3 Ml INHALATION 3 ml Q6HRT [facility] Administration Atorvastatin Calcium 40 mg 11/24/24 09:00 11/24/24 09:55 Atorvastatin 40 Mg Tablet PO 40 mg DAILY [facility] Administration Clopidogrel Bisulfate 75 mg 11/22/24 09:00 11/24/24 09:55 Clopidogrel Bisulfate 75 Mg Tablet PO 75 mg DAILY [facility] Administration Dextrose 12.5 gm 11/21/24 14:49 Dextrose 50% 25 Gm/50 Ml Syringe IV PUSH PRN PRN Hypoglycemia Protocol Glucagon 1 mg 11/21/24 14:49 Glucagon For Inj 1 Mg Vial IM PRN PRN Hypoglycemia Protocol Glucose 15 gm 11/21/24 14:49 Glucose Oral Gel 15 Gm Of Glucse In 37.5 Gm Tube PO PRN PRN Hypoglycemia Protocol Azithromycin 500 mg in 250 mls @ 250 mls/hr 11/21/24 09:00 11/24/24 09:49 Zithromax IVPB 250 mls/hr Q24H [facility] Administration Cefepime HCl 2 gm in 50 mls @ 100 mls/hr 11/21/24 14:00 11/24/24 06:06 Maxipime 2 Gm/Ns 50 Ml IVPB Infused Q8H [facility] Infusion Dextrose 1,000 mls @ 100 mls/hr 11/21/24 14:49 Dextrose 5% 1,000 Ml IVPB PRN PRN Hypoglycemia Protocol Vancomycin HCl 1,250 mg in 250 mls @ 166.667 mls/hr 11/22/24 08:00 11/24/24 09:50 Vancomycin 1,250 Mg/Ns 250 Ml IVPB 166 mls/hr Q12H [facility] Administration Insulin Aspart 4 - 8 units 11/24/24 08:00 11/24/24 09:47 Insulin Aspart (*Bkc) 100 Units/Ml SUB-Q 5 units TIDWM [facility] Administration Protocol Insulin Aspart 2 - 4 units 11/23/24 21:00 11/23/24 21:26 Insulin Aspart (*Bkc) 100 Units/Ml SUB-Q 4 units HS [facility] Administration Protocol Insulin Glargine 9 units 11/23/24 21:00 11/23/24 21:26 Insulin Glargine (*Bkc) 100 Units/Ml 0.15 units/kg (9 units) 9 units SUB-Q Administration HS [facility] Melatonin 3 mg 11/22/24 21:00 11/23/24 21:19 Melatonin 3 Mg Tablet PO 3 mg HS [facility] Administration Montelukast Sodium 10 mg 11/21/24 21:00 11/23/24 21:19 Montelukast Sodium 10 Mg Tablet PO 10 mg HS [facility] Administration Mycophenolate Mofetil 1,000 mg 11/21/24 21:00 11/22/24 09:27 Mycophenolate Mofetil 250 Mg Capsule PO 1,000 mg Q12H [facility] Administration Pantoprazole Sodium 40 mg 11/21/24 21:00 11/24/24 09:55 Pantoprazole 40 Mg Tablet PO 40 mg Q12H [facility] Administration Perflutren Lipid Microsphere 0 ml 11/21/24 14:48 Perflutren Lipid Microspheres 1.5 Ml Vial Diluted To 10 Ml Total Volume IV PUSH 11/24/24 14:48 ONCE PRN adequate visualization Protocol Rivaroxaban 20 mg 11/22/24 17:00 11/23/24 16:47 Rivaroxaban 20 Mg Tablet PO 20 mg DAILY@1700 [facility] Administration Tacrolimus 0.5 mg 11/22/24 17:00 11/22/24 17:58 Tacrolimus 0.5 Mg Capsule PO 0.5 mg Q48H [facility] Administration Radiology Results: ITS Impressions Chest X-Ray 11/21/24 07:07 IMPRESSION: Mild new patchy nodular infiltrate in the left mid and lower lung zones, suggesting pneumonia Severe COPD Chronic severe right upper lobe atelectasis and scarring, possible cavitation Chest CT 11/24/24 05:21 Impression: New area of groundglass opacity in the inferior left upper lobe/lingula, compatible with infectious/inflammatory process. Additional pulmonary findings are otherwise essentially unchanged, including right upper lobe consolidation with areas of cavitary change as well as scattered additional bilateral areas of focal consolidation and nodularity. Moderate emphysema. Labs Labs: Laboratory Results - last 24 hr 11/23/24 11/23/24 11/23/24 12:56 16:36 21:26 WBC RBC Hgb Hct MCV MCH MCHC RDW Plt Count MPV Immature Gran % (Auto) Neut % (Auto) Lymph % (Auto) [place] % (Auto) Eos % (Auto) Baso % (Auto) Lymph # (Auto) [place] # (Auto) Eos # (Auto) Baso # (Auto) Abs Immat Gran (auto) Absolute Neuts (auto) Absolute Nucleated RBC Nucleated RBC % Sodium Potassium Chloride Carbon Dioxide Anion Gap BUN Creatinine Estim Creat Clear Calc Estimated GFR Glucose POC Capillary Glucose 303 H 364 H Calcium Nasal MRSA (PCR) Not detected 11/24/24 11/24/24 11/24/24 04:06 08:07 12:20 WBC 11.3 H RBC 2.64 L Hgb 9.2 L Hct 27.7 L MCV 104.9 H MCH 34.8 H MCHC 33.2 RDW 14.1 Plt Count 330 MPV 10.9 H Immature Gran % (Auto) 1.1 H Neut % (Auto) 88.8 H Lymph % (Auto) 6.6 L [place] % (Auto) 3.4 Eos % (Auto) 0.0 Baso % (Auto) 0.1 L Lymph # (Auto) 0.75 L [place] # (Auto) 0.4 Eos # (Auto) 0.0 Baso # (Auto) 0.0 Abs Immat Gran (auto) 0.13 H Absolute Neuts (auto) 10.0 H Absolute Nucleated RBC 0.050 H Nucleated RBC % 0.4 H Sodium 134 L Potassium 3.7 Chloride 102 Carbon Dioxide 31 H Anion Gap 1 L BUN 20 Creatinine 0.51 L Estim Creat Clear Calc 116 Estimated GFR > 60 Glucose 230 H POC Capillary Glucose 271 H 362 H Calcium 8.1 L Nasal MRSA (PCR)
--- NOTE | 2024-11-24 14:33 | PM.PNCARD ---
Progress Note: A&P Assessment and Plan (1) Elevated troponin: Code(s): R79.89 - Other specified abnormal findings of blood chemistry Status: Acute Assessment and Plan: Feel that this is a supply demand mismatch situation in that he had no signs of acute coronary syndrome but had respiratory issues which probably led to a type 2 NH (2) Chronic respiratory failure with hypoxia, on home oxygen therapy: Code(s): J96.11 - Chronic respiratory failure with hypoxia; Z99.81 - Dependence on supplemental oxygen Status: Acute Assessment and Plan: Continue treatment per respiratory/pulmonary/internal medicine (3) Systolic congestive heart failure: Code(s): I50.20 - Unspecified systolic (congestive) heart failure Status: Acute Assessment and Plan: Has known reduced ejection fraction and this time the EF was 40 to 45% with inferior akinesis which is old (4) Mycobacterium avium complex: Code(s): A31.0 - Pulmonary mycobacterial infection Status: Acute Assessment and Plan: Believe is supposed to be on some antibiotics for EDISON (5) Coronary arteriosclerosis after percutaneous transluminal coronary angioplasty (PTCA): Code(s): I25.10 - Atherosclerotic heart disease of [place] coronary artery without angina pectoris; Z98.61 - Coronary angioplasty status Status: Acute Assessment and Plan: Is on aspirin and Plavix because he had a NH in January of 2023 along with statin Plan I believe that he is a plan to transfer him to [place] to the bone marrow unit because of his history Time Spent With Patient Time: 36 Subjective Date/time seen: 11/24/24 14:33 Interval history: States that he feels better than he did when he came in but still his breathing feels a little tight. Review of Systems Review of Systems: Otherwise all review of systems reviewed and were negative Exam Narrative: Does not appear to be in any distress Neck: Other: No jugular venous distension Resp: Other: Decreased air entry bilaterally Cardio: Other: S1-S2 regular rate and rhythm Neuro: Other: No focal deficits. AO x3 Extrem: Other: No cyanosis clubbing or edema Objective Data Vital Signs Vital Signs: Vital Signs - 24 hr 11/23/24 16:00 11/23/24 16:00 11/23/24 16:00 Temperature 36.7 C Pulse Rate 91 85 Respiratory Rate 24 H Blood Pressure 123/71 Pulse Oximetry 100 100 Oxygen Delivery Nasal Cannula Oxygen Flow Rate 3 11/23/24 18:00 11/23/24 20:00 11/23/24 20:00 Temperature Pulse Rate 92 69 Respiratory Rate Blood Pressure Pulse Oximetry 100 Oxygen Delivery Nasal Cannula Oxygen Flow Rate 3 11/23/24 20:12 11/23/24 21:00 11/23/24 21:09 Temperature 37.1 C Pulse Rate 83 79 86 Respiratory Rate 18 20 20 Blood Pressure 136/69 Pulse Oximetry 100 Oxygen Delivery Oxygen Flow Rate 11/23/24 22:00 11/23/24 23:17 11/24/24 00:00 Temperature 36.9 C Pulse Rate 74 62 Respiratory Rate 18 Blood Pressure 136/82 Pulse Oximetry 100 100 Oxygen Delivery Nasal Cannula Oxygen Flow Rate 3 11/24/24 00:00 11/24/24 01:56 11/24/24 02:00 Temperature Pulse Rate 79 70 57 L Respiratory Rate 20 Blood Pressure Pulse Oximetry Oxygen Delivery Oxygen Flow Rate 11/24/24 02:02 11/24/24 04:00 11/24/24 04:00 Temperature Pulse Rate 77 63 Respiratory Rate 20 Blood Pressure Pulse Oximetry 100 Oxygen Delivery Nasal Cannula Oxygen Flow Rate 3 11/24/24 05:43 11/24/24 05:45 11/24/24 05:56 Temperature 36.8 C Pulse Rate 60 61 80 Respiratory Rate 18 20 20 Blood Pressure 143/88 H Pulse Oximetry 100 Oxygen Delivery Oxygen Flow Rate 11/24/24 06:00 11/24/24 08:00 11/24/24 09:01 Temperature 36.5 C Pulse Rate 88 93 93 Respiratory Rate 20 20 Blood Pressure 145/87 H Pulse Oximetry 100 Oxygen Delivery Oxygen Flow Rate 11/24/24 09:02 11/24/24 09:13 11/24/24 11:06 Temperature Pulse Rate 99 99 Respiratory Rate 20 20 Blood Pressure Pulse Oximetry 88 L 98 Oxygen Delivery Room Air Nasal Cannula Oxygen Flow Rate 1 11/24/24 12:00 11/24/24 13:23 11/24/24 13:26 Temperature 36.8 C Pulse Rate 88 83 Respiratory Rate 16 20 Blood Pressure 142/80 H Pulse Oximetry 100 97 Oxygen Delivery Room Air Oxygen Flow Rate 11/24/24 13:38 Temperature Pulse Rate 90 Respiratory Rate 20 Blood Pressure Pulse Oximetry Oxygen Delivery Oxygen Flow Rate Intake/Output Intake/Output: Intake & Output 01/04/25 11/22/24 11/23/24 11/24/24 23:59 23:59 23:59 23:59 Intake Total 400 3420 2860 840 Output Total 700 1950 2350 1400 Balance -300 1470 510 -560 Meds/Results Medications: Active Medications Generic Name Dose Route Start Last Admin Trade Name Freq PRN Reason Stop Dose Admin Acetaminophen 650 mg 11/21/24 09:04 11/23/24 14:58 Acetaminophen 325 Mg Tablet PO 650 mg Q4H PRN Administration Mild Pain (1-3) or Fever Acyclovir 400 mg 11/21/24 22:00 11/24/24 14:12 Acyclovir 400 Mg Tablet PO 400 mg Q8HR [facility] Administration Albuterol/Ipratropium 3 ml 11/21/24 14:00 11/24/24 13:23 Ipratropium 0.5 Mg/Albuterol Sulfate 2.5 Mg Ampul.Neb 3 Ml INHALATION 3 ml Q6HRT ROSA MARIA Administration Atorvastatin Calcium 40 mg 11/24/24 09:00 11/24/24 09:55 Atorvastatin 40 Mg Tablet PO 40 mg DAILY [facility] Administration Clopidogrel Bisulfate 75 mg 11/22/24 09:00 11/24/24 09:55 Clopidogrel Bisulfate 75 Mg Tablet PO 75 mg DAILY [facility] Administration Dextrose 12.5 gm 11/21/24 14:49 Dextrose 50% 25 Gm/50 Ml Syringe IV PUSH PRN PRN Hypoglycemia Protocol Glucagon 1 mg 11/21/24 14:49 Glucagon For Inj 1 Mg Vial IM PRN PRN Hypoglycemia Protocol Glucose 15 gm 11/21/24 14:49 Glucose Oral Gel 15 Gm Of Glucse In 37.5 Gm Tube PO PRN PRN Hypoglycemia Protocol Azithromycin 500 mg in 250 mls @ 250 mls/hr 11/21/24 09:00 11/24/24 09:49 Zithromax IVPB 250 mls/hr Q24H [facility] Administration Cefepime HCl 2 gm in 50 mls @ 100 mls/hr 11/21/24 14:00 11/24/24 14:12 Maxipime 2 Gm/Ns 50 Ml IVPB 100 mls/hr Q8H [facility] Administration Dextrose 1,000 mls @ 100 mls/hr 11/21/24 14:49 Dextrose 5% 1,000 Ml IVPB PRN PRN Hypoglycemia Protocol Vancomycin HCl 1,250 mg in 250 mls @ 166.667 mls/hr 11/22/24 08:00 11/24/24 09:50 Vancomycin 1,250 Mg/Ns 250 Ml IVPB 166 mls/hr Q12H ROS[facility] Administration Insulin Aspart 4 - 8 units 11/24/24 08:00 11/24/24 13:10 Insulin Aspart (*Bkc) 100 Units/Ml SUB-Q 8 units TIDWM [facility] Administration Protocol Insulin Aspart 2 - 4 units 11/23/24 21:00 11/23/24 21:26 Insulin Aspart (*Bkc) 100 Units/Ml SUB-Q 4 units HS [facility] Administration Protocol Insulin Glargine 9 units 11/23/24 21:00 11/23/24 21:26 Insulin Glargine (*Bkc) 100 Units/Ml 0.15 units/kg (9 units) 9 units SUB-Q Administration [facility] Melatonin 3 mg 11/22/24 21:00 11/23/24 21:19 Melatonin 3 Mg Tablet PO 3 mg HS ROSA [facility] Administration Montelukast Sodium 10 mg 11/21/24 21:00 11/23/24 21:19 Montelukast Sodium 10 Mg Tablet PO 10 mg HS ROSA [facility]IA Administration Mycophenolate Mofetil 1,000 mg 11/21/24 21:00 11/22/24 09:27 Mycophenolate Mofetil 250 Mg Capsule PO 1,000 mg Q12H ROSA [facility]IA Administration Pantoprazole Sodium 40 mg 11/21/24 21:00 11/24/24 09:55 Pantoprazole 40 Mg Tablet PO 40 mg Q12H ROSA [facility] Administration Perflutren Lipid Microsphere 0 ml 11/21/24 14:48 Perflutren Lipid Microspheres 1.5 Ml Vial Diluted To 10 Ml Total Volume IV PUSH 11/24/24 14:48 ONCE PRN adequate visualization Protocol Rivaroxaban 20 mg 11/22/24 17:00 11/23/24 16:47 Rivaroxaban 20 Mg Tablet PO 20 mg DAILY@1700 ROSA [facility]IA Administration Tacrolimus 0.5 mg 11/22/24 17:00 11/22/24 17:58 Tacrolimus 0.5 Mg Capsule PO 0.5 mg Q48H ROSA MARIA Administration Radiology Results: ITS Impressions Chest X-Ray 11/21/24 07:07 IMPRESSION: Mild new patchy nodular infiltrate in the left mid and lower lung zones, suggesting pneumonia Severe COPD Chronic severe right upper lobe atelectasis and scarring, possible cavitation Chest CT 11/24/24 05:21 Impression: New area of groundglass opacity in the inferior left upper lobe/lingula, compatible with infectious/inflammatory process. Additional pulmonary findings are otherwise essentially unchanged, including right upper lobe consolidation with areas of cavitary change as well as scattered additional bilateral areas of focal consolidation and nodularity. Moderate emphysema. Labs Labs: Laboratory Results - last 24 hr 11/23/24 11/23/24 11/24/24 16:36 21:26 04:06 WBC 11.3 H RBC 2.64 L Hgb 9.2 L Hct 27.7 L MCV 104.9 H MCH 34.8 H MCHC 33.2 RDW 14.1 Plt Count 330 MPV 10.9 H Immature Gran % (Auto) 1.1 H Neut % (Auto) 88.8 H Lymph % (Auto) 6.6 L [place] % (Auto) 3.4 Eos % (Auto) 0.0 Baso % (Auto) 0.1 L Lymph # (Auto) 0.75 L [place] # (Auto) 0.4 Eos # (Auto) 0.0 Baso # (Auto) 0.0 Abs Immat Gran (auto) 0.13 H Absolute Neuts (auto) 10.0 H Absolute Nucleated RBC 0.050 H Nucleated RBC % 0.4 H Sodium 134 L Potassium 3.7 Chloride 102 Carbon Dioxide 31 H Anion Gap 1 L BUN 20 Creatinine 0.51 L Estim Creat Clear Calc 116 Estimated GFR > 60 Glucose 230 H POC Capillary Glucose 303 H 364 H Calcium 8.1 L 11/24/24 11/24/24 08:07 12:20 WBC RBC Hgb Hct MCV MCH MCHC RDW Plt Count MPV Immature Gran % (Auto) Neut % (Auto) Lymph % (Auto) [place] % (Auto) Eos % (Auto) Baso % (Auto) Lymph # (Auto) [place] # (Auto) Eos # (Auto) Baso # (Auto) Abs Immat Gran (auto) Absolute Neuts (auto) Absolute Nucleated RBC Nucleated RBC % Sodium Potassium Chloride Carbon Dioxide Anion Gap BUN Creatinine Estim Creat Clear Calc Estimated GFR Glucose POC Capillary Glucose 271 H 362 H Calcium
[2024-11-24 16:16] LABS: Glucose Point of Care 107 mg/dl (65-105)
[2024-11-24] MEDS: RIVAROXABAN 20 MG TABLET PO (18:25)
[2024-11-24] MEDS: TACROLIMUS 0.5 MG CAPSULE PO (18:25)
[2024-11-24 19:56] LABS: Glucose Point of Care 201 mg/dl (65-105)
[2024-11-24] MEDS: INSULIN GLARGINE (*BKC) 100 UNITS/ML 9 UNITS SUB-Q (20:59)
[2024-11-24] MEDS: MELATONIN 3 MG TABLET PO (20:59)
[2024-11-24] MEDS: MONTELUKAST SODIUM 10 MG TABLET PO (20:59)
[2024-11-25] VITALS (20 sets, daily range): BP systolic 121–144; BP diastolic 73–82; PULSE 63–100; RESP 16–22; TEMP 36.4–36.8; O2SAT 95–100
[2024-11-25] MEDS: IPRATROPIUM 0.5 MG/ALBUTEROL SULFATE 2.5 MG AMPUL.NEB 3 ML INHALATION ×4 (02:30→21:17)
[2024-11-25] MEDS: ACYCLOVIR 400 MG TABLET PO ×3 (05:59→21:39)
[2024-11-25] MEDS: CEFEPIME 2 GM/NS 50 ML 2 GM/50 ML BAG IVPB ×2 (05:59→14:52)
[2024-11-25 06:59] LABS: Basophils Percent Auto 0.2 % (0.2-1.2); Eosinophils Percent Auto 0.3 % (0-4.4); Hematocrit 31.3 % (42.0-52.0); Hemoglobin 10.3 g/dL (14.0-18.0); Immature Granulocyte Absolute 0.18 K/mm3 (0.00-0.031); Immature Granulocyte Percent A 1.4 % (0-0.5); Lymphocytes Absolute Auto 5.09 K/mm3 (0.9-3.2); Lymphocytes Percent Auto 39.5 % (18.3-44.2); Mean Corpuscular HGB Conc 32.9 g/dl (32-36); Mean Corpuscular Hemoglobin 35.5 pg (26-34); Mean Corpuscular Volume 107.9 fl (80-100); Mean Platelet Volume 10.4 fl (7.4-10.4); Monocytes Absolute Auto 1.3 K/mm3 (0.1-0.6); Monocytes Percent Auto 10.4 % (2.6-8.5); Neutrophils Absolute Auto 6.2 K/mm3 (1.3-6.7); Neutrophils Percent Auto 48.2 % (45.5-73.1); Nucleated Red Blood Cells Perc 1.7 % (0.0-0.2); Platelet Count Result 364 k/mm3 (150-375); Red Cell Distribution Width 14.4 % (11.5-14.5); White Blood Count 12.9 K/mm3 (4.5-10.0)
[2024-11-25 07:28] LABS: Alanine Aminotransferase 50 U/L (6-50); Albumin Level 3.1 g/dL (3.5-5.1); Alkaline Phosphatase 87 U/L (38-126); Anion Gap -1 mmol/L (4-12); Aspartate Amino Transferase 37 U/L (17-59); Bilirubin,Total 0.4 mg/dL (0.2-1.3); Blood Urea Nitrogen 19 mg/dL (9-20); Carbon Dioxide 37 mmol/L (22-30); Chloride 102 mmol/L (98-107); Estimated CRCL calculation 97 ml/min; Estimated Glomerular Filt Rate > 60; Glucose 87 mg/dL (65-110); Potassium 3.4 mmol/L (3.4-5.0); Sodium 138 mmol/L (137-145)
[2024-11-25 07:30] LABS: Vancomycin Trough 28.5 ug/mL (10.0-20.0)
[2024-11-25 07:40] LABS: Hypochromasia 1+; Macrocytosis 2+ (NORMAL); Platelet Estimate Adequate (Adequate); Polychromasia 1+; Schistocytes None Seen
[2024-11-25 08:05] LABS: CRP 2.1 mg/dL (<1.0)
[2024-11-25 08:28] LABS: Glucose Point of Care 83 mg/dl (65-105)
[2024-11-25] MEDS: ATORVASTATIN 40 MG TABLET PO (08:46)
[2024-11-25] MEDS: CLOPIDOGREL BISULFATE 75 MG TABLET PO (08:46)
[2024-11-25] MEDS: PANTOPRAZOLE 40 MG TABLET PO ×2 (08:47→21:38)
[2024-11-25] MEDS: AZITHROMYCIN 500 MG/NS 250 ML 500 MG/250 ML BAG 250 MG IVPB (08:47)
[2024-11-25 10:00] LABS: NT Pro B Type Natriuretic Pept 15000 pg/mL (19.9-100)
--- NOTE | 2024-11-25 10:06 | PM.IMPN ---
Progress Note: A&P Assessment and Plan (1) Acute and chronic respiratory failure with hypoxia: Code(s): J96.21 - Acute and chronic respiratory failure with hypoxia Status: Acute (2) Pneumonia: Qualifiers: Laterality: bilateral Lung location: lower lobe of lung Pneumonia type: due to unspecified organism Qualified Code(s): J18.9 - Pneumonia, unspecified organism Code(s): J18.9 - Pneumonia, unspecified organism Status: Acute (3) COPD (chronic obstructive pulmonary disease): Qualifiers: COPD type: COPD with acute exacerbation Qualified Code(s): J44.1 - Chronic obstructive pulmonary disease with (acute) exacerbation Code(s): J44.9 - Chronic obstructive pulmonary disease, unspecified Status: Acute (4) Elevated troponin: Code(s): R79.89 - Other specified abnormal findings of blood chemistry Status: Acute (5) Chronic vyeei-vukyri-vafl disease: Code(s): D89.811 - Chronic wscyy-opypga-gtvn disease Status: Acute (6) Insulin dependent type 2 diabetes mellitus: Code(s): E11.9 - Type 2 diabetes mellitus without complications; Z79.4 - correction (current) use of insulin Status: Acute Assessment and Plan: A1c 6.2. The patient's blood glucose was reviewed on 11/24 (7) Mycobacterium avium complex: Code(s): A31.0 - Pulmonary mycobacterial infection Status: Acute Assessment and Plan: As above Plan (1) Acute and chronic respiratory failure with hypoxia: Code(s): J96.21 - Acute and chronic respiratory failure with hypoxia Status: Acute Assessment and Plan: The patient presented to the emergency department for evaluation of worsening shortness of breath He was just discharged from [place] a couple of days ago and he states they sent him home with abx. Records requested but no received. Hx of pseudomonas by prior sputum cultures (colonized?) CXR here showing mild new patchy nodular infiltrate in the left mid and lower lung. Cultures obtained and started on Vanco, Azithro and Rocephin. Rocephin changed to Cefepime on 11/21 WBC 13K and now trending down. MRSA nasal swab negative. BCx NGTD Sputum Cx negative. AFB pending Pulmonology consult and apprecaite their input CT chest showing focal consolidation of the posterior medial left upper lobe/left apex with new area of central cavitation. Stable 7 mm left upper lobe pulmonary nodule. Stable 8 mm right upper lobe pulmonary nodule. New area of groundglass opacity in the inferior left upper lobe/lingula. Stable focal nodular irregular consolidation at the extreme left lung base. There is probable moderate emphysematous change of the lungs. New cavitary lesion. Could be MAC but new since Oct 23 2024 so consider bacterial Patient is immnosuppressed. Tacrolimus and mycophenolate on hold. Pulmonary recommended transfer for ID evaluation and patient agreeable. He feels better and tolerating O2 wean. Contacted [facility] to arrange for transfer Pt followed by infectious disease at [facility]. (2) Pneumonia: Qualifiers: Laterality: bilateral Lung location: lower lobe of lung Pneumonia type: due to unspecified organism Qualified Code(s): J18.9 - Pneumonia, unspecified organism Code(s): J18.9 - Pneumonia, unspecified organism Status: Acute Assessment and Plan: As above. Patient also undergoing treatment for MAC. Somewhat unclear if he has completed a course of treatment or not. BCx NGTD. Sputum Cx negative Patient with bacterial pneumonia and at this time, we are holding the mycophenolate and tacrolimas. He was on steroids for possible COPD exacerbation but these have been stopped. (3) COPD (chronic obstructive pulmonary disease): Qualifiers: COPD type: COPD with acute exacerbation Qualified Code(s): J44.1 - Chronic obstructive pulmonary disease with (acute) exacerbation Code(s): J44.9 - Chronic obstructive pulmonary disease, unspecified Status: Acute Assessment and Plan: Patient also with COPD exacerbation. Treated with Solu-Medrol and bronchodilators. Steroids stopped. (4) Elevated troponin: Code(s): R79.89 - Other specified abnormal findings of blood chemistry Status: Acute Assessment and Plan: Hx of CAD s/p stent 100% occlusion mid RCA s/p drug-eluting stent, left coronary system with uikp-av-zunfryui disease (12/30/22) Troponin elevated to 0.11 likely due to hypoxia and tachycardia EKG showing sinus tachycardia (114), nonspecific T wave changes. Cardiology consulted. Continue Plavix. Was not on a statin so added (5) Chronic lwspu-vbpacq-ctgn disease: Code(s): D89.811 - Chronic szjqb-qvbcwi-bnvq disease Status: Acute Assessment and Plan: As above. Holding anti-rejection meds with active infection Resume as soon as possible. Continue Acyclovir. 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 The patient's blood glucose was reviewed on 11/24 Glucose remains elevated related to the steroids. Continue AccuCheks covering with sliding scale. Hypoglycemia protocol available as needed. last steroid dose was this morning. Continue to monitor. 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 Patient denies chest pain, hemoptysis, night sweating. Patient still has some shortness breath with exertion. Patient is afebrile, blood pressure stable, leukocytosis persist Exam Narrative: GENERAL: Ill-appearing in no acute distress. Well-nourished. - EYES: EOMI. Anicteric. - HENT: Moist mucous membranes. - LUNGS: Clear to auscultation bilaterally, no wheezing, rhonchi, or rales. - CARDIOVASCULAR: Regular rate and rhythm. No murmur. No JVD. - ABDOMEN: Soft, non-tender and non-distended. No palpable masses. - EXTREMITIES: No edema. Peripheral pulses 2+. Non-tender. - NEUROLOGIC: No focal neurological deficits. CN II-XII grossly intact. - PSYCHIATRIC: Awake, Alert and oriented x 3. Appropriate mood and affect. - SKIN: No rashes or lesions. Warm. - LYMPH: No cervical lymphadenopathy. Objective Data Vital Signs Vital Signs: Vital Signs - 24 hr 11/24/24 11:06 11/24/24 12:00 11/24/24 12:00 Temperature 98.2 F Pulse Rate 88 93 Respiratory Rate 16 Blood Pressure 142/80 H Pulse Oximetry 98 100 Oxygen Delivery Nasal Cannula Oxygen Flow Rate 1 11/24/24 12:00 11/24/24 13:23 11/24/24 13:26 Temperature Pulse Rate 83 Respiratory Rate 20 Blood Pressure Pulse Oximetry 99 97 Oxygen Delivery Room Air Room Air Oxygen Flow Rate 11/24/24 13:38 11/24/24 14:00 11/24/24 16:00 Temperature Pulse Rate 90 92 97 Respiratory Rate 20 Blood Pressure Pulse Oximetry Oxygen Delivery Oxygen Flow Rate 11/24/24 16:00 11/24/24 16:00 11/24/24 18:00 Temperature 98.0 F Pulse Rate 87 85 Respiratory Rate 20 Blood Pressure 129/58 L Pulse Oximetry 96 97 Oxygen Delivery Room Air Oxygen Flow Rate 11/24/24 19:33 11/24/24 20:00 11/24/24 20:00 Temperature 98.7 F Pulse Rate 93 95 Respiratory Rate 20 Blood Pressure 125/66 Pulse Oximetry 98 100 Oxygen Delivery Nasal Cannula Oxygen Flow Rate 5 11/24/24 21:20 11/24/24 21:23 11/24/24 22:00 Temperature Pulse Rate 83 83 82 Respiratory Rate 20 Blood Pressure Pulse Oximetry 100 Oxygen Delivery Nasal Cannula Oxygen Flow Rate 5 11/24/24 23:26 11/25/24 00:00 11/25/24 00:00 Temperature 98.2 F Pulse Rate 80 68 Respiratory Rate 18 Blood Pressure 137/80 Pulse Oximetry 100 100 Oxygen Delivery Nasal Cannula Oxygen Flow Rate 2 11/25/24 02:00 11/25/24 02:30 11/25/24 02:40 Temperature Pulse Rate 63 82 85 Respiratory Rate 20 20 Blood Pressure Pulse Oximetry Oxygen Delivery Oxygen Flow Rate 11/25/24 04:00 11/25/24 04:00 11/25/24 04:00 Temperature 98.0 F Pulse Rate 83 78 Respiratory Rate 17 Blood Pressure 144/80 H Pulse Oximetry 100 100 Oxygen Delivery Nasal Cannula Oxygen Flow Rate 2 11/25/24 06:00 11/25/24 07:49 Temperature 98.3 F Pulse Rate 68 63 Respiratory Rate 16 Blood Pressure 138/76 Pulse Oximetry 100 Oxygen Delivery Oxygen Flow Rate Intake/Output Intake/Output: Intake & Output 11/22/24 11/23/24 11/24/24 11/25/24 23:59 23:59 23:59 23:59 Intake Total 3420 2860 2410 890 Output Total 1950 2350 1800 850 Balance 1470 510 610 40 Meds/Results Medications: Active Medications Generic Name Dose Route Start Last Admin Trade Name Freq PRN Reason Stop Dose Admin Acetaminophen 650 mg 11/21/24 09:04 11/23/24 14:58 Acetaminophen 325 Mg Tablet PO 650 mg Q4H PRN Administration Mild Pain (1-3) or Fever Acyclovir 400 mg 11/21/24 22:00 11/25/24 05:59 Acyclovir 400 Mg Tablet PO 400 mg Q8HR ROSA MARIA Administration Albuterol/Ipratropium 3 ml 11/21/24 14:00 11/25/24 10:02 Ipratropium 0.5 Mg/Albuterol Sulfate 2.5 Mg Ampul.Neb 3 Ml INHALATION 3 ml Q6HRT ROSA MARIA Administration Atorvastatin Calcium 40 mg 11/24/24 09:00 11/25/24 08:46 Atorvastatin 40 Mg Tablet PO 40 mg DAILY ROSA MARIA Administration Clopidogrel Bisulfate 75 mg 11/22/24 09:00 11/25/24 08:46 Clopidogrel Bisulfate 75 Mg Tablet PO 75 mg DAILY ROSA MARIA Administration Dextrose 12.5 gm 11/21/24 14:49 Dextrose 50% 25 Gm/50 Ml Syringe IV PUSH PRN PRN Hypoglycemia Protocol Ethambutol HCl 1,200 mg 11/25/24 09:00 Ethambutol Hcl 400 Mg Tablet PO QAM ROSA MARIA Glucagon 1 mg 11/21/24 14:49 Glucagon For Inj 1 Mg Vial IM PRN PRN Hypoglycemia Protocol Glucose 15 gm 11/21/24 14:49 Glucose Oral Gel 15 Gm Of Glucse In 37.5 Gm Tube PO PRN PRN Hypoglycemia Protocol Azithromycin 500 mg in 250 mls @ 250 mls/hr 11/21/24 09:00 11/25/24 08:47 Zithromax IVPB 250 mls/hr Q24H ROSA MARIA Administration Cefepime HCl 2 gm in 50 mls @ 100 mls/hr 11/21/24 14:00 11/25/24 06:29 Maxipime 2 Gm/Ns 50 Ml IVPB Infused Q8H ROSA MARIA Infusion Dextrose 1,000 mls @ 100 mls/hr 11/21/24 14:49 Dextrose 5% 1,000 Ml IVPB PRN PRN Hypoglycemia Protocol Vancomycin HCl 1,250 mg in 250 mls @ 166.667 mls/hr 11/25/24 20:00 Vancomycin 1,250 Mg/Ns 250 Ml IVPB Q24H ROSA MARIA Insulin Aspart 4 - 8 units 11/24/24 08:00 11/25/24 08:44 Insulin Aspart (*Bkc) 100 Units/Ml SUB-Q Not Given TIDWM [facility] Protocol Insulin Aspart 2 - 4 units 11/23/24 21:00 11/24/24 20:58 Insulin Aspart (*Bkc) 100 Units/Ml SUB-Q 2 units HS [facility] Administration Protocol Insulin Glargine 9 units 11/23/24 21:00 11/24/24 20:59 Insulin Glargine (*Bkc) 100 Units/Ml 0.15 units/kg (9 units) 9 units SUB-Q Administration [facility] Melatonin 3 mg 11/22/24 21:00 11/24/24 20:59 Melatonin 3 Mg Tablet PO 3 mg HS [facility] Administration Montelukast Sodium 10 mg 11/21/24 21:00 11/24/24 20:59 Montelukast Sodium 10 Mg Tablet PO 10 mg HS [facility] Administration Mycophenolate Mofetil 1,000 mg 11/21/24 21:00 11/22/24 09:27 Mycophenolate Mofetil 250 Mg Capsule PO 1,000 mg Q12H ROSA MARIA Administration * Home Med * 2 each 11/25/24 09:00 Isavuconazonium ( PO 12/25/24 08:59 Cresemba) 186 Mg DAILY ROSA MARIA Tablet * Home Med * 1 each 11/25/24 09:00 Clofazimine 100 Mg PO 12/25/24 08:59 Oral Capsule DAILY [facility] Pantoprazole Sodium 40 mg 11/21/24 21:00 11/25/24 08:47 Pantoprazole 40 Mg Tablet PO 40 mg Q12H ROSA MARIA Administration Rivaroxaban 20 mg 11/22/24 17:00 11/24/24 18:25 Rivaroxaban 20 Mg Tablet PO 20 mg DAILY@1700 [facility] Administration Tacrolimus 0.5 mg 11/22/24 17:00 11/24/24 18:25 Tacrolimus 0.5 Mg Capsule PO 0.5 mg Q48H ROSA MARIA Administration Radiology Results: ITS Impressions Chest X-Ray 11/21/24 07:07 IMPRESSION: Mild new patchy nodular infiltrate in the left mid and lower lung zones, suggesting pneumonia Severe COPD Chronic severe right upper lobe atelectasis and scarring, possible cavitation Chest CT 11/24/24 05:21 Impression: New area of groundglass opacity in the inferior left upper lobe/lingula, compatible with infectious/inflammatory process. Additional pulmonary findings are otherwise essentially unchanged, including right upper lobe consolidation with areas of cavitary change as well as scattered additional bilateral areas of focal consolidation and nodularity. Moderate emphysema. Labs Labs: Laboratory Results - last 24 hr 11/24/24 11/24/24 11/24/24 12:20 16:13 19:36 WBC RBC Hgb Hct MCV MCH MCHC RDW Plt Count MPV Immature Gran % (Auto) Neut % (Auto) Lymph % (Auto) [place] % (Auto) Eos % (Auto) Baso % (Auto) Lymph # (Auto) [place] # (Auto) Eos # (Auto) Baso # (Auto) Abs Immat Gran (auto) Absolute Neuts (auto) Absolute Nucleated RBC Nucleated RBC % Platelet Estimate Polychromasia Hypochromasia Macrocytosis Schistocytes Sodium Potassium Chloride Carbon Dioxide Anion Gap BUN Creatinine Estim Creat Clear Calc Estimated GFR Glucose POC Capillary Glucose 362 H 107 H 201 H Calcium Total Bilirubin AST ALT Alkaline Phosphatase C-Reactive Protein NT-Pro-B Natriuret Pep Total Protein Albumin Vancomycin Trough 11/25/24 11/25/24 11/25/24 06:38 06:40 07:19 WBC 12.9 H RBC 2.90 L Hgb 10.3 L Hct 31.3 L MCV 107.9 H MCH 35.5 H MCHC 32.9 RDW 14.4 Plt Count 364 MPV 10.4 Immature Gran % (Auto) 1.4 H Neut % (Auto) 48.2 Lymph % (Auto) 39.5 [place] % (Auto) 10.4 H Eos % (Auto) 0.3 Baso % (Auto) 0.2 Lymph # (Auto) 5.09 H [place] # (Auto) 1.3 H Eos # (Auto) 0.0 Baso # (Auto) 0.0 Abs Immat Gran (auto) 0.18 H Absolute Neuts (auto) 6.2 Absolute Nucleated RBC 0.220 H Nucleated RBC % 1.7 H Platelet Estimate Adequate Polychromasia 1+ Hypochromasia 1+ Macrocytosis 2+ Schistocytes None seen Sodium 138 Potassium 3.4 Chloride 102 Carbon Dioxide 37 H Anion Gap -1 L BUN 19 Creatinine 0.60 L Estim Creat Clear Calc 97 Estimated GFR > 60 Glucose 87 POC Capillary Glucose 83 Calcium 8.0 L Total Bilirubin 0.4 AST 37 ALT 50 Alkaline Phosphatase 87 C-Reactive Protein 2.1 H NT-Pro-B Natriuret Pep 95796 H Total Protein 6.0 L Albumin 3.1 L Vancomycin Trough 28.5 H
--- NOTE | 2024-11-25 10:42 | P.PNPL_ITS ---
Progress Note: A&P Assessment and Plan (1) COPD (chronic obstructive pulmonary disease): Qualifiers: COPD type: COPD with acute exacerbation Qualified Code(s): J44.1 - Chronic obstructive pulmonary disease with (acute) exacerbation Code(s): J44.9 - Chronic obstructive pulmonary disease, unspecified Status: Acute Assessment and Plan: GOLD grade 3 group E COPD 44 pack year tobacco use, currently smoking, PFTs 08/15/2023 with FEV1 1.32 L, 35% predicted, ratio 36%. No bronchodilator response, hyperinflation, severely decreased DLCO that remain moderately decreased when adjusted for alveolar volume. CT scan of the chest 10/23/2024 with severe panlobular emphysema. Chronic hypoxemic respiratory failure requiring 5 L nasal cannula at night. Currently the patient states he has worsening shortness of breath at rest and dyspnea on exertion with no fever, chills, rigors, change in cough or change in phlegm. He also had worsening oxygenation. Patient was treated with bronchodilators and steroids and says that he is much better after 24 hours of treatment. COVID, influenza, RSV RT PCR studies negative. Plan: I will treat for COPD exacerbation although he has a somewhat atypical presentation without any change in cough or change in phlegm production. I will also treat him for possible pneumonia. I will decrease his Solu-Medrol to 20 mg IV q.6 hours, I will continue bronchodilators with DuoNebs q.6 hours. Continue montelukast 10 a day. The patient has a history of Pseudomonas in his phlegm and currently is on cefepime, vancomycin and azithromycin all day 2. I will continue today. I will send a respiratory pathogen panel to [facility]. Regarding his immunosuppression for his bone marrow transplant and chronic weozn-wifzlr-mvrr disease I will hold his mycophenolate and his tacro Lyme is until he has made continued clinical improvement. I will perform an overnight oximetry on 3 L nasal cannula. 11/23/23: Patient says he is better. Says he is breathing back to his normal. States his phlegm production is back to his normal. He has no hemoptysis. When I enter the room he is on 3 L nasal cannula saturations 99%. I decreased him to room air and after 15 minutes he desatted to 88 and was placed back on 2 L nasal cannula. His white blood cell count is 13.2, his creatinine is 0.5, he is afebrile. Patient had an overnight oximetry on 3 L nasal cannula with recording duration of 5 hours and 56 minutes, average saturation 99%, low saturation 90%, time with saturation less than or equal to 88% was 0 minutes, oxygen desaturation index 0.5. Plan: I will continue Solu-Medrol 20 q6, DuoNebs q.6 hours, montelukast 10 q.day. continue treatment for pneumonia with vancomycin, cefepime and azithromycin. I will order CT scan of the chest to assess his infiltrates. I have reordered the respiratory pathogen panel and discussed with the nurse. Goal saturation 90-94%. Wean oxygen accordingly. 3 L oxygen at night is adequate. 11/24/2023: Overall the patient states he is better, he still has intermittent chest tightness requiring p.r.n. nebs. He is not sleeping well. Overall his breathing feels the same. He is without cough or phlegm production. He is afebrile. White blood cell count 11.3, creatinine 0.51. Plan: Patient has no wheezing. I will discontinue Solu-Medrol. I will continue DuoNebs q.6 hours. Will continue treatment for bacterial infection with vancomycin, cefepime and azithromycin all day 4. Respiratory pathogen panel, urine Legionella, urine pneumococcal, mycoplasma IgM all pending. 11/25/2023: Patient tells me he is breathing normal. He denies fever, chills, rigors, cough, phlegm or hemoptysis. He says that his chest tightness is 80% back to its normal. When I enter the room he was on room air with saturations 100%. White blood cell count 12.9, creatinine 0.6. He is afebrile. [place] 59[place] [address]. Patient's family has been unable to bring in his medicines. Plan: Patient with no wheezes. I will change his DuoNebs to Anoro Ellipta 62.5-25 at 1 puff q.day. continue vancomycin, cefepime and azithromycin all day 5. Additional studies pending. Yesterday was accepted at [facility] and awaiting bed placement. Will follow with you. (2) Mycobacterium avium complex: Code(s): A31.0 - Pulmonary mycobacterial infection Status: Acute Assessment and Plan: 11/23/24: The patient tells me he has completed all treatment for his pulmonary MAC disease that is being managed through [facility]. Last note from [facility] discharge summary states that the patient should still be on azithromycin 500 q.day, ethambutol 2100 q.day and amikacin 700 Saturday and Saturday. Patient is also listed as taking clofazamine. Will try to obtain [facility] Infectious Disease notes. 11/24/24: CT scan of the chest demonstrates stable right upper lobe cavitary disease, focal left upper lobe -lingula ground-glass infiltrate new compared to 10/23/2024 a previous focal consolidation in the posterior left upper lobe is now with central cavitation compared to 10/23/2024. Patient with new cavity in the posterior portion of the left upper lobe compared to 10/23/2024. He also has ground-glass infiltrate in the left upper lobe -lingula. Given the patient's previous pulmonary MAC disease I am concerned about progression of this disease. The patient tells me he is finish treatment for his pulmonary MAC but a recent discharge summary states that he should still be receiving active treatment. The management of pulmonary MAC is beyond my scope of practice and I recommend ensuring adequate follow up with [facility] [facility] and pulmonary or transferring him to their hospital for evaluation. Dr. Sutherland will discuss further with patient. Later in the day the hospitalist spoke with the Infectious Disease consult service at [facility]: Here is the note Spoke wit the fellow at [place]. Hospital course discussed. He has accepted the patient in transfer and now awaiting bed availability. He recommend resuming the patient's MAC treatment which consists of clofazimine 100mg daily, ethambutol 1200mg daily, azithromycin 500mg daily and cresemba 372mg daily. Patient is on azithro currently. Spoke with PharmD ID and we do not carry these medications. Plan is to ask patient's family to bring these in so they can be resumed here. 11/25/2023: Patient tells me he is breathing normal. He denies fever, chills, rigors, cough, phlegm or hemoptysis. He says that his chest tightness is 80% back to its normal. When I enter the room he was on room air with saturations 100%. White blood cell count 12.9, creatinine 0.6. He is afebrile. [place] 59[place] [address]. Patient's family has been unable to bring in his medicines. Plan: Continue treatment for pulmonary MAC. it is unclear why he is on Cresemba 372 a day but Infectious Disease must have more information than we do. (3) Chronic xpwdh-jlchfg-liry disease: Code(s): D89.811 - Chronic pvgvc-snrutb-hrco disease Status: Acute Assessment and Plan: 11/23/24: Patient is on mycophenolate 1 g BD b.i.d. and tacrolimus 0.5 mg PO Q M,W,F Plan: as mentioned above the patient may have a bacterial pneumonia and at this time will hold the mycophenolate and tacrolimas. He is on steroids for possible COPD exacerbation at Solu-Medrol 20 q.6. 11/24/24: The patient is status post bone marrow transplant with chronic leyvk-vukoao-zyac disease and is managed on mycophenolate 1 g twice a day and tacrolimus 0.5 mg every other day. Plan: Given his new cavity in his left upper lobe I will discontinue steroids today. Recommend transfer to [facility] for Oncology consultation regarding the use of these immunosuppressants in a patient with a new cavitary lung disease process and history of pulmonary MAC. 11/25/2024: Will continue to hold mycophenolate and tacrolimus. Last dose of mycophenolate 1000 mg was on 11/22/2024 at 9:27 a.m.. Patient is not taken tacrolimus during this hospitalization since 11/21/2024. last dose of Solu-Medrol 20 mg IV was on 11/24/2024. Subjective Date/time seen: 11/25/24 10:42 Interval history: 11/22/2024: this is a new pulmonary consult for shortness of breath. 59-year-old with a history of AML status post bone marrow transplant with vhkns-vcknrg-abcg disease, congestive heart failure, COPD, non tuberculous mycobacterial lung disease. Patient was followed in the Pulmonary Clinic until 07/18/2023 when the complexity of his bone marrow transplant, COPD and non tuberculous mycobacterial lung disease warranted referral to [facility]. He has been followed by [facility] Oncology Department for many years. Last note I have from [facility]. 08/18/2024: [facility] ID clinic follow-up: presents today for post hospital follow-up. 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 His amikacin has been on hold, last dose on Saturday, due to increase in his creatinine. Home health is not drawn amikacin peaks or trough since discharge. He reports no hearing changes. He remains on azithromycin and ethambutol. Denies any vision changes. No fever chills or night sweats. Chronic shortness of breath that is at his baseline. He has a good appetite and is eating well. Labs: Creatinine 0.78 on 08/18/2024. Assessment and plan: Current NTMLD regimen: Azithromycin 500 p.o. q.day started on 07/07/2024. Ethambutol 1200 mg p.o. q.day started on 07/07/2024. Amikacin 700 mg IV on Saturday and Fridays started 07/22/2024, currently on hold. Clinically doing well on exam. Respiratory symptoms at baseline. He is still smoking but states only a few puffs a day. Plan for at least 2-3 more weeks of IV amikacin. Continue ethambutol and azithromycin. He QTC improved after changing voriconazole to Isovuconazole. Plan to start clofazamine. Continue airway clearance with Aerobika and hypertonic saline. Follow-up with Pulmonary on 08/24/2024 as scheduled. Return in 8 weeks. Patient admitted to [facility] on 11/15 with food stuck in his esophagus and underwent EGD with removal. Discharged on 11/18/2024. On 11/19/2024 the patient developed shortness of breath and then hypoxemia. his symptoms worsened and he presented to the emergency department on 11/21/2024. He denied fever, chills, rigors, change in his chronic cough and he had no phlegm production or hemoptysis. His shortness of breath was at rest and with any activity. He had worsening oxygenation and is usually on no oxygen at rest but on 4 L saturations were 88%. Patient presented to the emergency department. EMS had placed him on CPAP. His blood pressure is 143/76, heart rate 124, he was on BiPAP in the emergency department. His white blood cell count was 13.5 with eosinophils 0.4%. His creatinine was 0.7, his BNP was 5710. His COVID, influenza and RSV RT PCR study was negative. ABG on BiPAP 12, pressures 12/6 and 30% was 7.36/55/86. Chest x-ray compared to 10/23/2024 showed a new mild patchy infiltrate left mid and lower lung zone, right upper lobe scarring with no change. 11/22/2024: Overall the patient tells me that his shortness of breath is a little bit better. His oxygenation has improved. When I enter the room he was on 3 L nasal cannula with saturations 100%. I decreased him to room air and his saturations remain 96 after 12 minutes. His white blood cell count is 13.3, creatinine is 0.7. 11/23/23: Patient says he is better. Says he is breathing back to his normal. States his phlegm production is back to his normal. He has no hemoptysis. When I enter the room he is on 3 L nasal cannula saturations 99%. I decreased him to room air and after 15 minutes he desatted to 88 and was placed back on 2 L nasal cannula. His white blood cell count is 13.2, his creatinine is 0.5, he is afebrile. Patient had an overnight oximetry on 3 L nasal cannula with recording duration of 5 hours and 56 minutes, average saturation 99%, low saturation 90%, time with saturation less than or equal to 88% was 0 minutes, oxygen desaturation index 0.5. 11/24/2023: Overall the patient states he is better, he still has intermittent chest tightness requiring p.r.n. nebs. He is not sleeping well. Overall his breathing feels the same. He is without cough or phlegm production. He is afebrile. White blood cell count 11.3, creatinine 0.51. CT scan of the chest demonstrates stable right upper lobe cavitary disease, focal left upper lobe -lingula ground-glass infiltrate new compared to 10/23/2024: A previous focal consolidation in the posterior left upper lobe is now with central cavitation compared to 10/23/2024. Recommended transfer to higher level of care, [facility] for ID consultation. Later in the day the hospitalist spoke with the Infectious Disease consult service at [facility]: Here is the note Spoke wit the fellow at [place]. Hospital course discussed. He has accepted the patient in transfer and now awaiting bed availability. He recommend resuming the patient's MAC treatment which consists of clofazimine 100mg daily, ethambutol 1200mg daily, azithromycin 500mg daily and cresemba 372mg daily. Patient is on azithro currently. Spoke with PharmD ID and we do not carry these medications. Plan is to ask patient's family to bring these in so they can be resumed here. 11/25/2023: Patient tells me he is breathing normal. He denies fever, chills, rigors, cough, phlegm or hemoptysis. He says that his chest tightness is 80% back to its normal. When I enter the room he was on room air with saturations 100%. White blood cell count 12.9, creatinine 0.6. He is afebrile. [place] 59[place] [address]. Patient's family has been unable to bring in his medicines. DATA: 10/23/2025: Clinical Indication: Pneumonia CT Scan of the Chest with Contrast: Technique: Contiguous sections were acquired throughout the chest after intravenous administration of 75 cc of Omnipaque 350. Dose reduction technique was used on this scan by utilizing automated exposure control and iterative reconstruction technique. The dose-length product (DLP) was 177.42 mGy-cm. COMPARISON: 07/21/2024 Findings: There is no evidence of any significant mediastinal, hilar or axillary lymphadenopathy. There is no filling defect in the pulmonary arterial tree to suggest pulmonary embolus. There is no evidence of aortic dissection or aneurysm. There is no evidence of pleural or pericardial effusion. Extensive irregular right apical consolidation with areas of cavitation versus bronchiectasis versus necrotic change are similar to prior exam. Stable focal pleural-based irregular consolidation in the posterior left lung apex. Stable small probable irregular pulmonary nodules more inferiorly in the right upper lobe patchy airspace consolidation/opacities in the superior segment left lower lobe are stable to minimally improved. Stable focal scarring the posterior aspect of the right lower lobe (axial image 92). There is increased airspace consolidation at the left lung base posteriorly, which could reflect pneumonia versus atelectasis or scarring. Stable airspace consolidation at the right lung base. Additional scattered subcentimeter nodules in the lingula and left lower lobe are unchanged. There is advanced emphysema. Small amount of debris present dependently in the trachea. Images through the upper abdomen reveal no abnormalities. Impression: Extensive irregular right apical consolidation with areas of cavitation versus bronchiectasis or possibly necrotic change are similar to prior exam. Multiple additional areas of irregular consolidation and/or nodularity throughout the lungs, largely stable from prior exam, but with focal worsening at the left lung base. Vascular fact chronic postinflammatory change with additional new infection or atelectasis or scarring at the left lung base. Clinical correlation advised. Underlying advanced emphysema. 07/21/24: EXAMINATION: CTA chest PE protocol DATE: 07/21/2024 21:53 INDICATION: Shortness of breath. TECHNIQUE: Computed tomography angiography (CTA) of the chest was performed with 100 mL Omnipaque-350 intravenous contrast timed to evaluate the pulmonary arteries. Coronal maximum intensity projection 3D-reconstructions were created by the technologist. Automated exposure control and iterative reconstruction technique were employed. The dose-length product was 501.49 mGy-cm. COMPARISON: Chest CT 05/28/2024 FINDINGS: There is moderate emphysema. There are airspace opacities with cavitation in right upper lobe. There are scattered smaller airspace opacities in the upper lobes and lower lobes. There is mucous plugging in the left lower lobe. There is partial collapse of right middle lobe. No pleural effusion. The heart size is normal. There are coronary artery calcifications. No pericardial effusion. There is no pulmonary embolus. There is mild thoracic spondylosis. IMPRESSION: 1. No pulmonary embolus. 2. Multifocal pneumonia, worsened from 05/28/2024. 3. Moderate emphysema. 10/25/2023: This is a 6 minute walk test. The test was performed and interpreted in accordance with the 2014 ERS/ATS task force guidelines. Findings: The patient's resting room air oxygen saturation measured by pulse oximetry was 96% and heart rate was 81 bpm. Patient ambulated for 305 meters and oxygen saturation remained 93 to 95%. Heart rate at the end of the study was 116 bpm. The patient did not qualify for supplemental oxygen at rest or with ambulation. Compared to 6 minute walk on 05/13/2023 the ambulated distance was the same at 305 m and the luma oxygen saturation was the same at 93%. 10/03/2023: Overnight oximetry on 4 L. Recording duration 7 hours and 43 minutes. Basal saturation 94.9%. High saturation 100. Low saturation 87%. Time with saturation less than or equal to 88% was 43 seconds. Oxygen desaturation index was 10. I will continue 4 L nasal cannula at night. 08/15/2023: 08/15/23: PFTs The test was performed and results interpreted in accordance with the 2019 and 2005 ATS/ERS Task Force guidelines respectively using the Global Lung Function Initiative-2012 reference equations. Patient demonstrated good effort and cooperation. Reproducibility criteria were met. The quality of the pre bronchodilator spirometry maneuver was Grade A and post bronchodilator spirometry maneuver was Grade A.? Of note, patient was only able to perform 1 plethysmography maneuver despite 3 attempts in good coaching. Findings: Spirometry:? There is decreased maximal expiratory airflow at all lung volumes with concave expiratory flow tracing.? The contour the inspiratory flow tracing is normal.? The pre bronchodilator FVC is 3.62 L, 75% predicted.? The pre bronchodilator FEV1 is 1.32 L, 35% predicted.? The pre bronchodilator FEV1: FVC ratio is 36%.? The post bronchodilator FVC is 3.90 L, representing an 8% incr ease.? The post bronchodilator FEV1 is 1.32 L, representing no change.? The post bronchodilator FEV1: FVC ratio is 34%.? Plethysmography:? The total lung capacity is 10.39 L, 148% predicted.? The fun ctional residual capacity is 7.47 L, 207% predicted.? The residual volume is 6.77 L, 313% predicted.? Diffusing capacity: The diffusing capacity unadjusted for hemoglobin and carboxyhemoglobin is 10.5, 36% predicted.? The diffusing capacity adjusted for alveolar volume is 1.96, 45% predicted.? In comparison to previous pulmonary function testing performed on 06/12/2021 the post bronchodilator FVC is unchanged from 3.95 L to 3.90 L.? The post bronchodilator FEV1 is unchanged from 1.29 L to 1.32 L.? The total lung capacity is increased from 7.80 L to 10.39 L.? The functional residual capacity is unchanged from 6.76 L to 7.47 L.? The residual volume is increased from 3.51 L to 6.77 L.? The diffusing capacity unadjusted for hemoglobin and carboxyhemoglobin is increased from 8.9 to 10.5.? The diffusing capacity adjusted for alveolar volume is unchanged from 1.80 to 1.96. Impression: There is a severe obstructive abnormality without significant improvement after inhaling a single dose of albuterol. The increase in residual volume is consistent with air trapping from an obstructive abnormality.? Hyperinflation is present as demonstrated by the increase in functional residual capacity and total lung capacity and is consistent with an obstructive abnormality. The diffusing capacity unadjusted for hemoglobin and carboxyhemoglobin is severely decreased and remains moderately decreased when adjusted for alveolar volume. In comparison to previous pulmonary function testing on 06/12/2021 there has been a greater than anticipated time dependent increase in the total lung capacity, residual volume and diffusing capacity unadjusted for hemoglobin and carboxyhemoglobin with no significant change in the FVC, FEV1, functional residual capacity and diffusing capacity adjusted for alveolar volume.? Clinical correlation is recommended. Review of Systems Constitutional: Constitutional: Reports no additional constitutional complaints Eyes: Eyes: Reports no additional eye complaints ENT: Reports system reviewed and no additional complaints, except as documented Cardiovascular: Cardiovascular: Reports no additional cardiovascular complaints Respiratory: Respiratory: Reports no additional respiratory complaints Gastrointestinal: Gastrointestinal: Reports no additional gastrointestinal complaints Musculoskeletal: Musculoskeletal: Reports no additional musculoskeletal complaints Neurologic: Reports system reviewed and no additional complaints, except as documented Psychiatric: Psychiatric: Reports no additional psychiatric complaints Endocrine: Endocrine: Reports no additional endocrine complaints Hematologic/Lymphatic: Hematologic/Lymphatic: Reports no additional hematologic/lymphatic complaints Allergic/Immunologic: Allergic/Immunologic: Reports no additional allergic/immunologic complaints Exam Const: General: cooperative, healthy appearing and comfortable Orientation/consciousness: oriented to person, oriented to place and oriented to time HENMT: Head: normal to inspection Ears: hearing grossly normal bilaterally Eyes: General: appearance normal, both eyes and all related structures Neck: Neck: normal visual inspection Chest: Chest palpation & inspection: normal inspection of the chest Resp: Effort & Inspection: normal respiratory effort and able to speak in complete sentences Auscultation: no crackles, no rales, no rhonchi, no wheezes and diminished lung sounds Cardio: Jugular venous distension: no JVD GI: Inspection: normal to inspection Skin: General skin exam: normal color Neuro: General: oriented to person, oriented to place and oriented to time Extrem: General: normal to inspection Psych: Appearance: grossly normal Objective Data Vital Signs Vital Signs: Vital Signs - 24 hr 11/24/24 11:06 11/24/24 12:00 11/24/24 12:00 Temperature 36.8 C Pulse Rate 88 93 Respiratory Rate 16 Blood Pressure 142/80 H Pulse Oximetry 98 100 Oxygen Delivery Nasal Cannula Oxygen Flow Rate 1 11/24/24 12:00 11/24/24 13:23 11/24/24 13:26 Temperature Pulse Rate 83 Respiratory Rate 20 Blood Pressure Pulse Oximetry 99 97 Oxygen Delivery Room Air Room Air Oxygen Flow Rate 11/24/24 13:38 11/24/24 14:00 11/24/24 16:00 Temperature Pulse Rate 90 92 97 Respiratory Rate 20 Blood Pressure Pulse Oximetry Oxygen Delivery Oxygen Flow Rate 11/24/24 16:00 11/24/24 16:00 11/24/24 18:00 Temperature 36.7 C Pulse Rate 87 85 Respiratory Rate 20 Blood Pressure 129/58 L Pulse Oximetry 96 97 Oxygen Delivery Room Air Oxygen Flow Rate 11/24/24 19:33 11/24/24 20:00 11/24/24 20:00 Temperature 37.1 C Pulse Rate 93 95 Respiratory Rate 20 Blood Pressure 125/66 Pulse Oximetry 98 100 Oxygen Delivery Nasal Cannula Oxygen Flow Rate 5 11/24/24 21:20 11/24/24 21:23 11/24/24 22:00 Temperature Pulse Rate 83 83 82 Respiratory Rate 20 Blood Pressure Pulse Oximetry 100 Oxygen Delivery Nasal Cannula Oxygen Flow Rate 5 11/24/24 23:26 11/25/24 00:00 11/25/24 00:00 Temperature 36.8 C Pulse Rate 80 68 Respiratory Rate 18 Blood Pressure 137/80 Pulse Oximetry 100 100 Oxygen Delivery Nasal Cannula Oxygen Flow Rate 2 11/25/24 02:00 11/25/24 02:30 11/25/24 02:40 Temperature Pulse Rate 63 82 85 Respiratory Rate 20 20 Blood Pressure Pulse Oximetry Oxygen Delivery Oxygen Flow Rate 11/25/24 04:00 11/25/24 04:00 11/25/24 04:00 Temperature 36.7 C Pulse Rate 83 78 Respiratory Rate 17 Blood Pressure 144/80 H Pulse Oximetry 100 100 Oxygen Delivery Nasal Cannula Oxygen Flow Rate 2 11/25/24 06:00 11/25/24 07:49 11/25/24 10:03 Temperature 36.8 C Pulse Rate 68 63 Respiratory Rate 16 Blood Pressure 138/76 Pulse Oximetry 100 95 Oxygen Delivery Nasal Cannula Oxygen Flow Rate 2 11/25/24 10:03 11/25/24 10:13 Temperature Pulse Rate 100 97 Respiratory Rate 20 20 Blood Pressure Pulse Oximetry Oxygen Delivery Oxygen Flow Rate Intake/Output Intake/Output: Intake & Output 11/22/24 11/23/24 11/24/24 11/25/24 23:59 23:59 23:59 23:59 Intake Total 3420 2860 2410 890 Output Total 1950 2350 1800 850 Balance 1470 510 610 40 Meds/Results Medications: Active Medications Generic Name Dose Route Start Last Admin Trade Name Freq PRN Reason Stop Dose Admin Acetaminophen 650 mg 11/21/24 09:04 11/23/24 14:58 Acetaminophen 325 Mg Tablet PO 650 mg Q4H PRN Administration Mild Pain (1-3) or Fever Acyclovir 400 mg 11/21/24 22:00 11/25/24 05:59 Acyclovir 400 Mg Tablet PO 400 mg Q8HR ROSA MARIA Administration Albuterol/Ipratropium 3 ml 11/21/24 14:00 11/25/24 10:02 Ipratropium 0.5 Mg/Albuterol Sulfate 2.5 Mg Ampul.Neb 3 Ml INHALATION 3 ml Q6HRT ROSA MARIA Administration Atorvastatin Calcium 40 mg 11/24/24 09:00 11/25/24 08:46 Atorvastatin 40 Mg Tablet PO 40 mg DAILY ROSA MARIA Administration Clopidogrel Bisulfate 75 mg 11/22/24 09:00 11/25/24 08:46 Clopidogrel Bisulfate 75 Mg Tablet PO 75 mg DAILY ROSA MARIA Administration Dextrose 12.5 gm 11/21/24 14:49 Dextrose 50% 25 Gm/50 Ml Syringe IV PUSH PRN PRN Hypoglycemia Protocol Ethambutol HCl 1,200 mg 11/25/24 09:00 Ethambutol Hcl 400 Mg Tablet PO QAM ROSA MARIA Glucagon 1 mg 11/21/24 14:49 Glucagon For Inj 1 Mg Vial IM PRN PRN Hypoglycemia Protocol Glucose 15 gm 11/21/24 14:49 Glucose Oral Gel 15 Gm Of Glucse In 37.5 Gm Tube PO PRN PRN Hypoglycemia Protocol Azithromycin 500 mg in 250 mls @ 250 mls/hr 11/21/24 09:00 11/25/24 08:47 Zithromax IVPB 250 mls/hr Q24H ROSA MARIA Administration Cefepime HCl 2 gm in 50 mls @ 100 mls/hr 11/21/24 14:00 11/25/24 06:29 Maxipime 2 Gm/Ns 50 Ml IVPB Infused Q8H ROSA MARIA Infusion Dextrose 1,000 mls @ 100 mls/hr 11/21/24 14:49 Dextrose 5% 1,000 Ml IVPB PRN PRN Hypoglycemia Protocol Vancomycin HCl 1,250 mg in 250 mls @ 166.667 mls/hr 11/25/24 20:00 Vancomycin 1,250 Mg/Ns 250 Ml IVPB Q24H ROSA MARIA Insulin Aspart 4 - 8 units 11/24/24 08:00 11/25/24 08:44 Insulin Aspart (*Bkc) 100 Units/Ml SUB-Q Not Given TIDWM [facility] Protocol Insulin Aspart 2 - 4 units 11/23/24 21:00 11/24/24 20:58 Insulin Aspart (*Bkc) 100 Units/Ml SUB-Q 2 units HS [facility] Administration Protocol Insulin Glargine 9 units 11/23/24 21:00 11/24/24 20:59 Insulin Glargine (*Bkc) 100 Units/Ml 0.15 units/kg (9 units) 9 units SUB-Q Administration HS [facility] Melatonin 3 mg 11/22/24 21:00 11/24/24 20:59 Melatonin 3 Mg Tablet PO 3 mg HS ROSA MARIA Administration Montelukast Sodium 10 mg 11/21/24 21:00 11/24/24 20:59 Montelukast Sodium 10 Mg Tablet PO 10 mg HS ROSA MARIA Administration Mycophenolate Mofetil 1,000 mg 11/21/24 21:00 11/22/24 09:27 Mycophenolate Mofetil 250 Mg Capsule PO 1,000 mg Q12H ROSA MARIA Administration * Home Med * 2 each 11/25/24 09:00 Isavuconazonium ( PO 12/25/24 08:59 Cresemba) 186 Mg DAILY ROSA MARIA Tablet * Home Med * 1 each 11/25/24 09:00 Clofazimine 100 Mg PO 12/25/24 08:59 Oral Capsule DAILY [facility] Pantoprazole Sodium 40 mg 11/21/24 21:00 11/25/24 08:47 Pantoprazole 40 Mg Tablet PO 40 mg Q12H ROSA MARIA Administration Rivaroxaban 20 mg 11/22/24 17:00 11/24/24 18:25 Rivaroxaban 20 Mg Tablet PO 20 mg DAILY@1700 ROSA MARIA Administration Tacrolimus 0.5 mg 11/22/24 17:00 11/24/24 18:25 Tacrolimus 0.5 Mg Capsule PO 0.5 mg Q48H ROSA MARIA Administration Radiology Results: ITS Impressions Chest X-Ray 11/21/24 07:07 IMPRESSION: Mild new patchy nodular infiltrate in the left mid and lower lung zones, suggesting pneumonia Severe COPD Chronic severe right upper lobe atelectasis and scarring, possible cavitation Chest CT 11/24/24 05:21 Impression: New area of groundglass opacity in the inferior left upper lobe/lingula, compatible with infectious/inflammatory process. Additional pulmonary findings are otherwise essentially unchanged, including right upper lobe consolidation with areas of cavitary change as well as scattered additional bilateral areas of focal consolidation and nodularity. Moderate emphysema. Labs Labs: Laboratory Results - last 24 hr 11/24/24 11/24/24 11/24/24 12:20 16:13 19:36 WBC RBC Hgb Hct MCV MCH MCHC RDW Plt Count MPV Immature Gran % (Auto) Neut % (Auto) Lymph % (Auto) Lawrence % (Auto) Eos % (Auto) Baso % (Auto) Lymph # (Auto) Lawrence # (Auto) Eos # (Auto) Baso # (Auto) Abs Immat Gran (auto) Absolute Neuts (auto) Absolute Nucleated RBC Nucleated RBC % Platelet Estimate Polychromasia Hypochromasia Macrocytosis Schistocytes Sodium Potassium Chloride Carbon Dioxide Anion Gap BUN Creatinine Estim Creat Clear Calc Estimated GFR Glucose POC Capillary Glucose 362 H 107 H 201 H Calcium Total Bilirubin AST ALT Alkaline Phosphatase C-Reactive Protein NT-Pro-B Natriuret Pep Total Protein Albumin Vancomycin Trough 11/25/24 11/25/24 11/25/24 06:38 06:40 07:19 WBC 12.9 H RBC 2.90 L Hgb 10.3 L Hct 31.3 L MCV 107.9 H MCH 35.5 H MCHC 32.9 RDW 14.4 Plt Count 364 MPV 10.4 Immature Gran % (Auto) 1.4 H Neut % (Auto) 48.2 Lymph % (Auto) 39.5 Lawrence % (Auto) 10.4 H Eos % (Auto) 0.3 Baso % (Auto) 0.2 Lymph # (Auto) 5.09 H Lawrence # (Auto) 1.3 H Eos # (Auto) 0.0 Baso # (Auto) 0.0 Abs Immat Gran (auto) 0.18 H Absolute Neuts (auto) 6.2 Absolute Nucleated RBC 0.220 H Nucleated RBC % 1.7 H Platelet Estimate Adequate Polychromasia 1+ Hypochromasia 1+ Macrocytosis 2+ Schistocytes None seen Sodium 138 Potassium 3.4 Chloride 102 Carbon Dioxide 37 H Anion Gap -1 L BUN 19 Creatinine 0.60 L Estim Creat Clear Calc 97 Estimated GFR > 60 Glucose 87 POC Capillary Glucose 83 Calcium 8.0 L Total Bilirubin 0.4 AST 37 ALT 50 Alkaline Phosphatase 87 C-Reactive Protein 2.1 H NT-Pro-B Natriuret Pep 16810 H Total Protein 6.0 L Albumin 3.1 L Vancomycin Trough 28.5 H
--- NOTE | 2024-11-25 11:43 | PC.NURSE ---
Spoke with BECKI John from [facility] transfer center. No bed available at this time.
[2024-11-25 11:49] LABS: Glucose Point of Care 152 mg/dl (65-105)
--- NOTE | 2024-11-25 13:11 | PC.NURSE ---
Reports asking roommate to bring home medications to hospital but roommate's phone . Will continue to attempt to contact friends/family to have medication brought to hospital.
[2024-11-25] MEDS: FUROSEMIDE INJ 40 MG/4 ML VIAL 20 MG IV PUSH (14:51)
--- NOTE | 2024-11-25 16:46 | PC.NURSE ---
This patient, Brady Jones, was received from IMU on 11/25/24 at 1630. Patient/family oriented to unit policies and routines
[2024-11-25 17:06] LABS: Glucose Point of Care 182 mg/dl (65-105)
--- NOTE | 2024-11-25 17:14 | PC.NURSE ---
This patient, Brady Jones, was transferred to [facility] on 11/25/24 at 1614. Personal belongings sent with patient. Report given to BECKI Bullard. Appropriate documentation sent with patient.
[2024-11-25] MEDS: RIVAROXABAN 20 MG TABLET PO (17:20)
[2024-11-25 17:46] LABS: Glucose Point of Care 198 mg/dl (65-105)
[2024-11-25 19:50] LABS: Vancomycin Trough 17.8 ug/mL (10.0-20.0)
[2024-11-25 20:08] LABS: Glucose Point of Care 180 mg/dl (65-105)
[2024-11-25] MEDS: VANCOMYCIN 1,250 MG/NS 250 ML 1,250 MG/250 ML BAG 166.67 MG IVPB (21:38)
[2024-11-25] MEDS: MONTELUKAST SODIUM 10 MG TABLET PO (21:38)
[2024-11-25] MEDS: MELATONIN 3 MG TABLET PO (21:39)
[2024-11-25] MEDS: INSULIN GLARGINE (*BKC) 100 UNITS/ML 9 UNITS SUB-Q (21:45)
[2024-11-26] VITALS (9 sets, daily range): BP systolic 112–131; BP diastolic 70–88; PULSE 67–92; RESP 18–20; TEMP 36.7–36.9; O2SAT 98–100
--- NOTE | 2024-11-26 01:22 | PHAR ---
HOME MEDICATION: CRESEMBA (ISAVUCONAZONIUM SULFATE) 186 MG CAPSULES, TAKE 2 CAPSULES (372 MG) BY MOUTH DAILY, VERIFIED IN PHARMACY 11/26/24 @ 5917
--- NOTE | 2024-11-26 01:26 | PHAR ---
HOME MEDICATION: ETHAMBUTOL 400 MG TABLETS, TAKE 3 TABLETS (1200 MG) BY MOUTH DAILY, TWO DIFFERENT MANUFACTURERS, VERIFIED IN PHARMACY 11/26/24 @ 1123
--- NOTE | 2024-11-26 01:41 | PHAR ---
HOME MEDICATION: CLOFAZIMINE 50 MG CAPSULES, TAKE 1 CAPSULE (50 MG) BY MOUTH ONCE DAILY, VERIFIED IN PHARMACY 11/26/24 @ 0140
--- NOTE | 2024-11-26 01:55 | PHAR ---
HOME MEDICATION: CLOFAZIMINE 50 MG CAPSULES, TAKE 2 CAPSULE (100 MG) BY MOUTH ONCE DAILY, VERIFIED IN PHARMACY 11/26/24 @ 014
[2024-11-26] MEDS: IPRATROPIUM 0.5 MG/ALBUTEROL SULFATE 2.5 MG AMPUL.NEB 3 ML INHALATION ×2 (02:28→07:10)
[2024-11-26] MEDS: ACYCLOVIR 400 MG TABLET PO ×3 (05:50→21:03)
[2024-11-26] MEDS: CEFEPIME 2 GM/NS 50 ML 2 GM/50 ML BAG IVPB ×4 (05:50→22:19)
[2024-11-26 07:22] LABS: Estimated CRCL calculation 96 ml/min; Estimated Glomerular Filt Rate > 60
[2024-11-26 08:11] LABS: Glucose Point of Care 122 mg/dl (65-105)
--- NOTE | 2024-11-26 08:36 | P.CONIM_ITS ---
Assessment and Plan Assessment and plan (1) Acute and chronic respiratory failure with hypoxia: Code(s): J96.21 - Acute and chronic respiratory failure with hypoxia Status: Acute (2) Pneumonia: Qualifiers: Laterality: bilateral Lung location: lower lobe of lung Pneumonia type: due to unspecified organism Qualified Code(s): J18.9 - Pneumonia, unspecified organism Code(s): J18.9 - Pneumonia, unspecified organism Status: Acute (3) COPD (chronic obstructive pulmonary disease): Qualifiers: COPD type: COPD with acute exacerbation Qualified Code(s): J44.1 - Chronic obstructive pulmonary disease with (acute) exacerbation Code(s): J44.9 - Chronic obstructive pulmonary disease, unspecified Status: Acute (4) Elevated troponin: Code(s): R79.89 - Other specified abnormal findings of blood chemistry Status: Acute (5) Chronic wkuzj-cvgzve-avwb disease: Code(s): D89.811 - Chronic xhyzx-mjbzuh-bvvq disease Status: Acute (6) Insulin dependent type 2 diabetes mellitus: Code(s): E11.9 - Type 2 diabetes mellitus without complications; Z79.4 - halfway (current) use of insulin Status: Acute Assessment and Plan: A1c 6.2. The patient's blood glucose was reviewed on 11/24 (7) Mycobacterium avium complex: Code(s): A31.0 - Pulmonary mycobacterial infection Status: Acute Assessment and Plan: As above Plan (1) Acute and chronic respiratory failure with hypoxia: Code(s): J96.21 - Acute and chronic respiratory failure with hypoxia Status: Acute Assessment and Plan: The patient presented to the emergency department for evaluation of worsening shortness of breath He was just discharged from [facility] a couple of days ago and he states they sent him home with abx. Records requested but no received. Hx of pseudomonas by prior sputum cultures (colonized?) CXR here showing mild new patchy nodular infiltrate in the left mid and lower lung. Cultures obtained and started on Vanco, Azithro and Rocephin. Rocephin changed to Cefepime on 11/21 WBC 13K and now trending down. MRSA nasal swab negative. BCx NGTD Sputum Cx negative. AFB pending Pulmonology consult and apprecaite their input CT chest showing focal consolidation of the posterior medial left upper lobe/left apex with new area of central cavitation. Stable 7 mm left upper lobe pulmonary nodule. Stable 8 mm right upper lobe pulmonary nodule. New area of groundglass opacity in the inferior left upper lobe/lingula. Stable focal nodular irregular consolidation at the extreme left lung base. There is probable moderate emphysematous change of the lungs. New cavitary lesion. Could be MAC but new since Oct 23 2024 so consider bacterial Patient is immnosuppressed. Tacrolimus and mycophenolate on hold. Pulmonary recommended transfer for ID evaluation and patient agreeable. He feels better and tolerating O2 wean. Contacted [facility] to arrange for transfer Pt followed by infectious disease at [facility]. (2) Pneumonia: Qualifiers: Laterality: bilateral Lung location: lower lobe of lung Pneumonia type: due to unspecified organism Qualified Code(s): J18.9 - Pneumonia, unspecified organism Code(s): J18.9 - Pneumonia, unspecified organism Status: Acute Assessment and Plan: As above. Patient also undergoing treatment for MAC. Somewhat unclear if he has completed a course of treatment or not. BCx NGTD. Sputum Cx negative Patient with bacterial pneumonia and at this time, we are holding the mycophenolate and tacrolimas. He was on steroids for possible COPD exacerbation but these have been stopped. (3) COPD (chronic obstructive pulmonary disease): Qualifiers: COPD type: COPD with acute exacerbation Qualified Code(s): J44.1 - Chronic obstructive pulmonary disease with (acute) exacerbation Code(s): J44.9 - Chronic obstructive pulmonary disease, unspecified Status: Acute Assessment and Plan: Patient also with COPD exacerbation. Treated with Solu-Medrol and bronchodilators. Steroids stopped. (4) Elevated troponin: Code(s): R79.89 - Other specified abnormal findings of blood chemistry Status: Acute Assessment and Plan: Hx of CAD s/p stent 100% occlusion mid RCA s/p drug-eluting stent, left coronary system with hnfh-dy-sbrlmnuh disease (12/30/22) Troponin elevated to 0.11 likely due to hypoxia and tachycardia EKG showing sinus tachycardia (114), nonspecific T wave changes. Cardiology consulted. Continue Plavix. Was not on a statin so added (5) Chronic qqftt-exbycj-eroq disease: Code(s): D89.811 - Chronic wdgco-mijdxq-rpxt disease Status: Acute Assessment and Plan: As above. Holding anti-rejection meds with active infection Resume as soon as possible. Continue Acyclovir. (6) Insulin dependent type 2 diabetes mellitus: Code(s): E11.9 - Type 2 diabetes mellitus without complications; Z79.4 - halfway (current) use of insulin Status: Acute Assessment and Plan: A1c 6.2. The patient's blood glucose was reviewed on 11/24 Glucose remains elevated related to the steroids. Continue AccuCheks covering with sliding scale. Hypoglycemia protocol available as needed. last steroid dose was this morning. Continue to monitor. 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 with resultant chronic bpfjt-jxrhjk-jdyu disease on anti rejection medications and antifungal prophylaxis, Plan DVT prophylaxis - Xarelto Code status - full HPI Date of Consult Consult date: 11/26/24 Requesting Physician: Alex Sutherland MD Primary Care Provider: Kirt Lindsay DO Consult Narrative Narrative: Brady Jones is a 59 year old male [facility] Past Medical History Medical History (Updated 11/24/24 @ 14:37 by Jacky Johnson MD) Pancreatitis Non-tuberculous mycobacterial pneumonia MSSA bacteremia Osteopenia Pseudomonas pneumonia Mycobacterium avium complex Chronic leqcy-vshcml-zost disease Chronic respiratory failure with hypoxia, on home oxygen therapy Coronary artery disease Pill esophagitis ST elevation (STEMI) myocardial infarction (12/30/22) Chronic anticoagulation Immunocompromised patient patient on anti rejection medications Positive nasal culture for methicillin resistant Staphylococcus aureus Deep venous thrombosis Insulin dependent type 2 diabetes mellitus Chronic obstructive pulmonary disease Sciatica Eczema Anxiety Depression Peyronie's disease Emphysema/COPD Acute myeloid leukemia (2008) status post hematopoietic stem cell transplantation with resultant chronic bwcnh-fzagla-eegz disease. 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 Code status: Full code. Years smoked: 44 Smoking status: Current some day smoker Tobacco type: cigarettes Smoking end date: 08/07/22 Additional smoking assessment comments: on nicotine patches, states he is currently on patches Alcohol intake: former Substance use: never Substance use type: does not use Do You Feel Safe in your Home?: Yes Lack of Transportation: No Lack of Food: Never True Current Housing: I Have Housing Concerned About Future Housing: No Difficulty Paying Gas/Electric Bills: No Difficulty Paying for Meds: No Currently Unemployed: No Education: Trade/Vocational Certificate Difficulty w/ Childcare or Family Care: No Living arrangements: with friend(s) Additional living arrangements comments: He lives with his roommate in [place]. Occupation/Education: unemployed Spiritual care concerns: No Agree to blood products: Yes Meds Home Medications and Allergies Home Medications ?Medication ?Instructions ?Recorded ?Confirmed ?Type rivaroxaban 20 mg tablet (Xarelto) 20 mg PO QAM 02/06/23 11/21/24 History acyclovir 400 mg tablet 400 mg PO TID #90 tabs 01/28/24 11/21/24 Rx clopidogrel 75 mg tablet 75 mg PO DAILY #90 tabs 01/28/24 11/21/24 Rx montelukast 10 mg tablet 10 mg PO HS #30 tabs 01/28/24 11/21/24 Rx (Singulair) mycophenolate mofetil 500 mg tablet 1,000 mg (2 x 500 mg) PO Q12H #10 01/28/24 11/21/24 Rx tabs tacrolimus 0.5 mg capsule, 0.5 mg PO EVERY OTHER DAY #30 caps 01/28/24 11/21/24 Rx immediate-release (Prograf) albuterol sulfate 90 mcg/actuation 1 puff inhalation Q4-6H PRN 10/23/24 11/21/24 History aerosol inhaler Shortness Of Breath Or Wheezing ondansetron 4 mg disintegrating 4 mg PO Q8H PRN Nausea And Vomiting 10/23/24 11/21/24 History tablet pantoprazole 40 mg tablet,delayed 40 mg PO Q12H 10/23/24 11/21/24 History release albuterol sulfate 2.5 mg/3 mL 2.5 mg (3 mL) inhalation Q6H PRN 11/13/24 11/21/24 Rx (0.083 %) solution for nebulization Shortness Of Breath #180 mL clofazimine 50 mg capsule 100 mg PO DAILY 11/25/24 11/25/24 History ethambutol 400 mg tablet 1,200 mg PO DAILY 11/25/24 11/25/24 History isavuconazonium sulfate 186 mg 372 mg PO DAILY 11/25/24 11/25/24 History capsule (Cresemba) Allergies Allergy/AdvReac Type Severity Reaction Status Date / Time adhesive tape AdvReac Unknown PAPER Verified 10/23/24 05:58 TAPE,REDNESS AND IRRITATION Vital Signs Vital Signs - 24 hr 11/25/24 10:00 11/25/24 10:03 11/25/24 10:03 Temperature Pulse Rate 92 100 Respiratory Rate 20 Blood Pressure Pulse Oximetry 95 Oxygen Delivery Nasal Cannula Oxygen Flow Rate 2 11/25/24 10:13 11/25/24 11:26 11/25/24 14:19 Temperature 97.6 F Pulse Rate 97 76 82 Respiratory Rate 20 16 20 Blood Pressure 126/73 Pulse Oximetry 98 Oxygen Delivery Oxygen Flow Rate 11/25/24 14:29 11/25/24 16:00 11/25/24 18:11 Temperature 97.5 F L Pulse Rate 85 89 Respiratory Rate 20 22 H Blood Pressure 121/78 Pulse Oximetry 100 100 Oxygen Delivery Nasal Cannula Oxygen Flow Rate 3 11/25/24 20:00 11/25/24 21:08 11/25/24 21:21 Temperature 98.0 F Pulse Rate 97 89 Respiratory Rate 20 20 Blood Pressure 128/82 Pulse Oximetry 100 99 Oxygen Delivery Nasal Cannula Oxygen Flow Rate 3 11/25/24 21:33 11/25/24 21:33 11/26/24 02:28 Temperature Pulse Rate 90 69 Respiratory Rate 20 20 Blood Pressure Pulse Oximetry 98 Oxygen Delivery Nasal Cannula Oxygen Flow Rate 3 11/26/24 02:38 11/26/24 05:41 11/26/24 07:10 Temperature 98.1 F Pulse Rate 75 67 76 Respiratory Rate 20 18 18 Blood Pressure 112/70 Pulse Oximetry 99 98 Oxygen Delivery Nasal Cannula Oxygen Flow Rate 3 11/26/24 07:10 11/26/24 07:20 Temperature Pulse Rate 76 78 Respiratory Rate 18 20 Blood Pressure Pulse Oximetry Oxygen Delivery Oxygen Flow Rate Exam 2 Narrative: GENERAL: Ill-appearing in no acute distress. Well-nourished. - EYES: EOMI. Anicteric. - HENT: Moist mucous membranes. - LUNGS: Clear to auscultation bilateral ly, no wheezing, rhonchi, or rales. - CARDIOVASCULAR: Regular rate and rhyth m. No murmur. No JVD. - ABDOMEN: Soft, non-tender and non-dist ended. No palpable masses. - EXTREMITIES: No edema. Peripheral puls es 2+. Non-tender. - NEUROLOGIC: No focal neurological defi cits. CN II-XII grossly intact. - PSYCHIATRIC: Awake, Alert and oriented x 3. Appropriate mood and affect. - SKIN: No rashes or lesions. Warm. - LYMPH: No cervical lymphadenopathy. Results Labs 11/25/24 06:40 11/26/24 06:41 Labs: BMP 11/26/24 06:41 Creatinine 0.60 L
[2024-11-26] MEDS: CLOPIDOGREL BISULFATE 75 MG TABLET PO (09:31)
[2024-11-26] MEDS: ATORVASTATIN 40 MG TABLET PO (09:31)
[2024-11-26] MEDS: AZITHROMYCIN 250 MG TABLET 500 MG PO (09:31)
[2024-11-26] MEDS: ETHAMBUTOL HCL 1200 MG PO (09:32)
[2024-11-26] MEDS: PANTOPRAZOLE 40 MG TABLET PO ×2 (09:32→21:03)
[2024-11-26] MEDS: CLOFAZIMINE 2 EACH PO (09:34)
[2024-11-26] MEDS: ISAVUCONAZONIUM 186 MG 2 EACH PO (09:35)
--- NOTE | 2024-11-26 11:13 | P.PNPL_ITS ---
Progress Note: A&P Assessment and Plan (1) COPD (chronic obstructive pulmonary disease): Qualifiers: COPD type: COPD with acute exacerbation Qualified Code(s): J44.1 - Chronic obstructive pulmonary disease with (acute) exacerbation Code(s): J44.9 - Chronic obstructive pulmonary disease, unspecified Status: Acute Assessment and Plan: GOLD grade 3 group E COPD 44 pack year tobacco use, currently smoking, PFTs 08/15/2023 with FEV1 1.32 L, 35% predicted, ratio 36%. No bronchodilator response, hyperinflation, severely decreased DLCO that remain moderately decreased when adjusted for alveolar volume. CT scan of the chest 10/23/2024 with severe panlobular emphysema. Chronic hypoxemic respiratory failure requiring 5 L nasal cannula at night. Currently the patient states he has worsening shortness of breath at rest and dyspnea on exertion with no fever, chills, rigors, change in cough or change in phlegm. He also had worsening oxygenation. Patient was treated with bronchodilators and steroids and says that he is much better after 24 hours of treatment. COVID, influenza, RSV RT PCR studies negative. Plan: I will treat for COPD exacerbation although he has a somewhat atypical presentation without any change in cough or change in phlegm production. I will also treat him for possible pneumonia. I will decrease his Solu-Medrol to 20 mg IV q.6 hours, I will continue bronchodilators with DuoNebs q.6 hours. Continue montelukast 10 a day. The patient has a history of Pseudomonas in his phlegm and currently is on cefepime, vancomycin and azithromycin all day 2. I will continue today. I will send a respiratory pathogen panel to [employer] Regarding his immunosuppression for his bone marrow transplant and chronic uypxi-hrrkmf-hagl disease I will hold his mycophenolate and his tacro Lyme is until he has made continued clinical improvement. I will perform an overnight oximetry on 3 L nasal cannula. 11/23/23: Patient says he is better. Says he is breathing back to his normal. States his phlegm production is back to his normal. He has no hemoptysis. When I enter the room he is on 3 L nasal cannula saturations 99%. I decreased him to room air and after 15 minutes he desatted to 88 and was placed back on 2 L nasal cannula. His white blood cell count is 13.2, his creatinine is 0.5, he is afebrile. Patient had an overnight oximetry on 3 L nasal cannula with recording duration of 5 hours and 56 minutes, average saturation 99%, low saturation 90%, time with saturation less than or equal to 88% was 0 minutes, oxygen desaturation index 0.5. Plan: I will continue Solu-Medrol 20 q6, DuoNebs q.6 hours, montelukast 10 q.day. continue treatment for pneumonia with vancomycin, cefepime and azithromycin. I will order CT scan of the chest to assess his infiltrates. I have reordered the respiratory pathogen panel and discussed with the nurse. Goal saturation 90-94%. Wean oxygen accordingly. 3 L oxygen at night is adequate. 11/24/2023: Overall the patient states he is better, he still has intermittent chest tightness requiring p.r.n. nebs. He is not sleeping well. Overall his breathing feels the same. He is without cough or phlegm production. He is afebrile. White blood cell count 11.3, creatinine 0.51. Plan: Patient has no wheezing. I will discontinue Solu-Medrol. I will continue DuoNebs q.6 hours. Will continue treatment for bacterial infection with vancomycin, cefepime and azithromycin all day 4. Respiratory pathogen panel, urine Legionella, urine pneumococcal, mycoplasma IgM all pending. 11/25/2023: Patient tells me he is breathing normal. He denies fever, chills, rigors, cough, phlegm or hemoptysis. He says that his chest tightness is 80% back to its normal. When I enter the room he was on room air with saturations 100%. White blood cell count 12.9, creatinine 0.6. He is afebrile. [place] [address]. Patient's family has been unable to bring in his medicines. Plan: Patient with no wheezes. I will change his DuoNebs to Anoro Ellipta 62.5-25 at 1 puff q.day. continue vancomycin, cefepime and azithromycin all day 5. Additional studies pending. Yesterday was accepted at [facility] and awaiting bed placement. 11/26/24: Patient tells me he is breathing at his baseline. He has no infectious complaints. Minimal chest tightness. Patient's family has brought in his home medicines. Awaiting transfer to [facility]. Plan: Continue Anoro Ellipta. Continue vancomycin cefepime and azithromycin all day 5. Awaiting [facility] transfer. Will sign off, call with questions. (2) Mycobacterium avium complex: Code(s): A31.0 - Pulmonary mycobacterial infection Status: Acute Assessment and Plan: 11/23/24: The patient tells me he has completed all treatment for his pulmonary MAC disease that is being managed through [facility]. Last note from [facility] discharge summary states that the patient should still be on azithromycin 500 q.day, ethambutol 2100 q.day and amikacin 700 Saturday and Saturday. Patient is also listed as taking clofazamine. Will try to obtain [facility] notes. 11/24/24: CT scan of the chest demonstrates stable right upper lobe cavitary disease, focal left upper lobe -lingula ground-glass infiltrate new compared to 10/23/2024 a previous focal consolidation in the posterior left upper lobe is now with central cavitation compared to 10/23/2024. Patient with new cavity in the posterior portion of the left upper lobe compared to 10/23/2024. He also has ground-glass infiltrate in the left upper lobe -lingula. Given the patient's previous pulmonary MAC disease I am concerned about progression of this disease. The patient tells me he is finish treatment for his pulmonary MAC but a recent discharge summary states that he should still be receiving active treatment. The management of pulmonary MAC is beyond my scope of practice and I recommend ensuring adequate follow up with [facility] [facility] and pulmonary or transferring him to their hospital for evaluation. Dr. Sutherland will discuss further with patient. Later in the day the hospitalist spoke with the Infectious Disease consult service at [facility]: Here is the note Spoke wit the fellow at [place]. Hospital course discussed. He has accepted the patient in transfer and now awaiting bed availability. He recommend resuming the patient's MAC treatment which consists of clofazimine 100mg daily, ethambutol 1200mg daily, azithromycin 500mg daily and cresemba 372mg daily. Patient is on azithro currently. Spoke with Pharm[facility] ID and we do not carry these medications. Plan is to ask patient's family to bring these in so they can be resumed here. 11/25/2023: Patient tells me he is breathing normal. He denies fever, chills, rigors, cough, phlegm or hemoptysis. He says that his chest tightness is 80% back to its normal. When I enter the room he was on room air with saturations 100%. White blood cell count 12.9, creatinine 0.6. He is afebrile. [place] 59[place] [address]. Patient's family has been unable to bring in his medicines. Plan: Continue treatment for pulmonary MAC. it is unclear why he is on Cresemba 372 a day and this may be for fungal prophylaxis but Infectious Disease must have more information than we do. 11/26/24: patient is now receiving ethambutol 1200 mg p.o. q.day 1st dose 11/26/2024, clofazamine 100 Q day, a Zithromax 500 mg a day and Cresemba 372 a day (3) Chronic ugeuv-qqgbxq-wcsf disease: Code(s): D89.811 - Chronic kwpaz-oyvjqq-ohqx disease Status: Acute Assessment and Plan: 11/23/24: Patient is on mycophenolate 1 g BD b.i.d. and tacrolimus 0.5 mg PO Q ,, Plan: as mentioned above the patient may have a bacterial pneumonia and at this time will hold the mycophenolate and tacrolimas. He is on steroids for possible COPD exacerbation at Solu-Medrol 20 q.6. 11/24/24: The patient is status post bone marrow transplant with chronic vgbwf-cwmqai-ypub disease and is managed on mycophenolate 1 g twice a day and tacrolimus 0.5 mg every other day. Plan: Given his new cavity in his left upper lobe I will discontinue steroids today. Recommend transfer to [facility] for Oncology consultation regarding the use of these immunosuppressants in a patient with a new cavitary lung disease process and history of pulmonary MAC. 11/25/2024: Will continue to hold mycophenolate and tacrolimus. Last dose of mycophenolate 1000 mg was on 11/22/2024 at 9:27 a.m.. Patient is not taken tacrolimus during this hospitalization since 11/21/2024. last dose of Solu- Medrol 20 mg IV was on 11/24/2024. 11/26/24: continue to hold mycophenolate and tacrolimus until he is evaluated at [facility]. Subjective Date/time seen: 11/26/24 11:13 Interval history: 11/22/2024: this is a new pulmonary consult for shortness of breath. 59-year-old with a history of AML status post bone marrow transplant with xvvxi-sdsyve-tqln disease, congestive heart failure, COPD, non tuberculous mycobacterial lung disease. Patient was followed in the Pulmonary Clinic until 07/18/2023 when the complexity of his bone marrow transplant, COPD and non tuberculous mycobacterial lung disease warranted referral to [facility]. He has been followed by [facility] Department for many years. Last note I have from [facility]. 08/18/2024: [facility] ID clinic follow-up: presents today for post hospital follow-up. 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 His amikacin has been on hold, last dose on Saturday, due to increase in his creatinine. Home health is not drawn amikacin peaks or trough since discharge. He reports no hearing changes. He remains on azithromycin and ethambutol. Denies any vision changes. No fever chills or night sweats. Chronic shortness of breath that is at his baseline. He has a good appetite and is eating well. Labs: Creatinine 0.78 on 08/18/2024. Assessment and plan: Current NTMLD regimen: Azithromycin 500 p.o. q.day started on 07/07/2024. Ethambutol 1200 mg p.o. q.day started on 07/07/2024. Amikacin 700 mg IV on Saturday and Fridays started 07/22/2024, currently on hold. Clinically doing well on exam. Respiratory symptoms at baseline. He is still smoking but states only a few puffs a day. Plan for at least 2-3 more weeks of IV amikacin. Continue ethambutol and azithromycin. He QTC improved after changing voriconazole to Isovuconazole. Plan to start clofazamine. Continue airway clearance with Aerobika and hypertonic saline. Follow-up with Pulmonary on 08/24/2024 as scheduled. Return in 8 weeks. Patient admitted to [facility] on 11/15 with food stuck in his esophagus and underwent EGD with removal. Discharged on 11/18/2024. On 11/19/2024 the patient developed shortness of breath and then hypoxemia. his symptoms worsened and he presented to the emergency department on 11/21/2024. He denied fever, chills, rigors, change in his chronic cough and he had no phlegm production or hemoptysis. His shortness of breath was at rest and with any activity. He had worsening oxygenation and is usually on no oxygen at rest but on 4 L saturations were 88%. Patient presented to the emergency department. EMS had placed him on CPAP. His blood pressure is 143/76, heart rate 124, he was on BiPAP in the emergency department. His white blood cell count was 13.5 with eosinophils 0.4%. His creatinine was 0.7, his BNP was 5710. His COVID, influenza and RSV RT PCR study was negative. ABG on BiPAP 12, pressures 12/6 and 30% was 7.36/55/86. Chest x-ray compared to 10/23/2024 showed a new mild patchy infiltrate left mid and lower lung zone, right upper lobe scarring with no change. 11/22/2024: Overall the patient tells me that his shortness of breath is a little bit better. His oxygenation has improved. When I enter the room he was on 3 L nasal cannula with saturations 100%. I decreased him to room air and his saturations remain 96 after 12 minutes. His white blood cell count is 13.3, creatinine is 0.7. 11/23/23: Patient says he is better. Says he is breathing back to his normal. States his phlegm production is back to his normal. He has no hemoptysis. When I enter the room he is on 3 L nasal cannula saturations 99%. I decreased him to room air and after 15 minutes he desatted to 88 and was placed back on 2 L nasal cannula. His white blood cell count is 13.2, his creatinine is 0.5, he is afebrile. Patient had an overnight oximetry on 3 L nasal cannula with recording duration of 5 hours and 56 minutes, average saturation 99%, low saturation 90%, time with saturation less than or equal to 88% was 0 minutes, oxygen desaturation index 0.5. 11/24/2023: Overall the patient states he is better, he still has intermittent chest tightness requiring p.r.n. nebs. He is not sleeping well. Overall his breathing feels the same. He is without cough or phlegm production. He is afebrile. White blood cell count 11.3, creatinine 0.51. CT scan of the chest demonstrates stable right upper lobe cavitary disease, focal left upper lobe -lingula ground-glass infiltrate new compared to 10/23/2024: A previous focal consolidation in the posterior left upper lobe is now with central cavitation compared to 10/23/2024. Recommended transfer to higher level of care, [facility] for ID consultation. Later in the day the hospitalist spoke with the Infectious Disease consult service at [facility]: Here is the note Spoke wit the fellow at [place]. Hospital course discussed. He has accepted the patient in transfer and now awaiting bed availability. He recommend resuming the patient's MAC treatment which consists of clofazimine 100mg daily, ethambutol 1200mg daily, azithromycin 500mg daily and cresemba 372mg daily. Patient is on azithro currently. Spoke with PharmD ID and we do not carry these medications. Plan is to ask patient's family to bring these in so they can be resumed here. 11/25/2023: Patient tells me he is breathing normal. He denies fever, chills, rigors, cough, phlegm or hemoptysis. He says that his chest tightness is 80% back to its normal. When I enter the room he was on room air with saturations 100%. White blood cell count 12.9, creatinine 0.6. He is afebrile. [place] 59[place] [address]. Patient's family has been unable to bring in his medicines. 11/26/24: Patient tells me he is breathing at his baseline. He has no infectious complaints. Minimal chest tightness. Patient's family has brought in his home medicines. Awaiting transfer to [facility]. DATA: 10/23/2025: Clinical Indication: Pneumonia CT Scan of the Chest with Contrast: Technique: Contiguous sections were acquired throughout the chest after intravenous administration of 75 cc of Omnipaque 350. Dose reduction technique w as used on this scan by utilizing automated exposure control and iterative reconstruction technique. The dose-length product (DLP) was 177.42 mGy-cm. COMPARISON: 07/21/2024 Findings: There is no evidence of any significant mediastinal, hilar or axillary lymphadenopathy. There is no filling defect in the pulmonary arterial tree to suggest pulmonary embolus. There is no evidence of aortic dissection or aneurysm. There is no evidence of pleural or pericardial effusion. Extensive irregular right apical consolidation with areas of cavitation versus bronchiectasis versus necrotic change are similar to prior exam. Stable focal pleural-based irregular consolidation in the posterior left lung apex. Stable small probable irregular pulmonary nodules more inferiorly in the right upper lobe patchy airspace consolidation/opacities in the superior segment left lower lobe are stable to minimally improved. Stable focal scarring the posterior aspect of the right lower lobe (axial image 92). There is increased airspace consolidation at the left lung base posteriorly, which could reflect pneumonia versus atelectasis or scarring. Stable airspace consolidation at the right lung base. Additional scattered subcentimeter nodules in the lingula and left lower lobe are unchanged. There is advanced emphysema. Small amount of debris present dependently in the trachea. Images through the upper abdomen reveal no abnormalities. Impression: Extensive irregular right apical consolidation with areas of cavitation versus bronchiectasis or possibly necrotic change are similar to prior exam. Multiple additional areas of irregular consolidation and/or nodularity throughout the lungs, largely stable from prior exam, but with focal worsening at the left lung base. Vascular fact chronic postinflammatory change with additional new infection or atelectasis or scarring at the left lung base. Clinical correlation advised. Underlying advanced emphysema. 07/21/24: EXAMINATION: CTA chest PE protocol DATE: 07/21/2024 21:53 INDICATION: Shortness of breath. TECHNIQUE: Computed tomography angiography (CTA) of the chest was performed with 100 mL Omnipaque-350 intravenous contrast timed to evaluate the pulmonary arteries. Coronal maximum intensity projection 3D-reconstructions were created by the technologist. Automated exposure control and iterative reconstruction technique were employed. The dose-length product was 501.49 mGy-cm. COMPARISON: Chest CT 05/28/2024 FINDINGS: There is moderate emphysema. There are airspace opacities with cavitation in right upper lobe. There are scattered smaller airspace opacities in the upper lobes and lower lobes. There is mucous plugging in the left lower lobe. There is partial collapse of right middle lobe. No pleural effusion. The heart size is normal. There are coronary artery calcifications. No pericardial effusion. There is no pulmonary embolus. There is mild thoracic spondylosis. IMPRESSION: 1. No pulmonary embolus. 2. Multifocal pneumonia, worsened from 05/28/2024. 3. Moderate emphysema. 10/25/2023: This is a 6 minute walk test. The test was performed and interpreted in accordance with the 2014 ERS/ATS task force guidelines. Findings: The patient's resting room air oxygen saturation measured by pulse oximetry was 96% and heart rate was 81 bpm. Patient ambulated for 305 meters and oxygen saturation remained 93 to 95%. Heart rate at the end of the study was 116 bpm. The patient did not qualify for supplemental oxygen at rest or with ambulation. Compared to 6 minute walk on 05/13/2023 the ambulated distance was the same at 305 m and the luma oxygen saturation was the same at 93%. 10/03/2023: Overnight oximetry on 4 L. Recording duration 7 hours and 43 minutes. Basal saturation 94.9%. High saturation 100. Low saturation 87%. Time with saturation less than or equal to 88% was 43 seconds. Oxygen desaturat ion index was 10. I will continue 4 L nasal cannula at night. 08/15/2023: 08/15/23: PFTs The test was performed and results interpreted in accordance with the 2019 and 2005 ATS/ERS Task Force guidelines respectively using the Global Lung Function Initiative-2012 reference equations. Patient demonstrated good effort and cooperation. Reproducibility criteria were met. The quality of the pre bronchodilator spirometry maneuver was Grade A and post bronchodilator spirometry maneuver was Grade A.? Of note, patient was only able to perform 1 plethysmography maneuver despite 3 attempts in good coaching. Findings: Spirometry:? There is decreased maximal expiratory airflow at all lung volumes with concave expiratory flow tracing.? The contour the inspiratory flow tracing is normal.? The pre bronchodilator FVC is 3.62 L, 75% predicted.? The pre bronchodilator FEV1 is 1.32 L, 35% predicted.? The pre bronchodilator FEV1: FVC ratio is 36%.? The post bronchodilator FVC is 3.90 L, representing an 8% increase.? The post bronchodilator FEV1 is 1.32 L, representing no change.? The post bronchodilator FEV1: FVC ratio is 34%.? Plethysmography:? The total lung capacity is 10.39 L, 148% predicted.? The functional residual capacity is 7.47 L, 207% predicted.? The residual volume is 6.77 L, 313% predicted.? Diffusing capacity: The diffusing capacity unadjusted for hemoglobin and carboxyhemoglobin is 10.5, 36% predicted.? The diffusing capacity adjusted for alveolar volume is 1.96, 45% predicted.? In comparison to previous pulmonary function testing performed on 06/12/2021 the post bronchodilator FVC is unchanged from 3.95 L to 3.90 L.? The post bronchodilator FEV1 is unchanged from 1.29 L to 1.32 L.? The total lung capacity is increased from 7.80 L to 10.39 L.? The functional residual capacity is unchanged from 6.76 L to 7.47 L.? The residual volume is increased from 3.51 L to 6.77 L.? The diffusing capacity unadjusted for hemoglobin and carboxyhemoglobin is increased from 8.9 to 10.5.? The diffusing capacity adjusted for alveolar volume is unchanged from 1.80 to 1.96. Impression: There is a severe obstructive abnormality without significant improvement after inhaling a single dose of albuterol. The increase in residual volume is consistent with air trapping from an obstructive abnormality.? Hyperinflation is present as demonstrated by the increase in functional residual capacity and total lung capacity and is consistent with an obstructive abnormality. The diffusing capacity unadjusted for hemoglobin and carboxyhemoglobin is severely decreased and remains moderately decreased when adjusted for alveolar volume. In comparison to previous pulmonary function testing on 06/12/2021 there has been a greater than anticipated time dependent increase in the total lung capacity, residual volume and diffusing capacity unadjusted for hemoglobin and carboxyhemoglobin with no significant change in the FVC, FEV1, functional residual capacity and diffusing capacity adjusted for alveolar volume.? Clinical correlation is recommended. Review of Systems Constitutional: Constitutional: Reports no additional constitutional complaints Eyes: Eyes: Reports no additional eye complaints ENT: Reports system reviewed and no additional complaints, except as documented Cardiovascular: Cardiovascular: Reports no additional cardiovascular complaints Respiratory: Respiratory: Reports no additional respiratory complaints Gastrointestinal: Gastrointestinal: Reports no additional gastrointestinal complaints Musculoskeletal: Musculoskeletal: Reports no additional musculoskeletal complaints Neurologic: Reports system reviewed and no additional complaints, except as documented Psychiatric: Psychiatric: Reports no additional psychiatric complaints Endocrine: Endocrine: Reports no additional endocrine complaints Hematologic/Lymphatic: Hematologic/Lymphatic: Reports no additional hematologic/lymphatic complaints Allergic/Immunologic: Allergic/Immunologic: Reports no additional allergic/immunologic complaints Exam Const: General: cooperative, healthy appearing and comfortable Orientation/consciousness: oriented to person, oriented to place and oriented to time HENMT: Head: normal to inspection Ears: hearing grossly normal bilaterally Eyes: General: appearance normal, both eyes and all related structures Neck: Neck: normal visual inspection Chest: Chest palpation & inspection: normal inspection of the chest Resp: Effort & Inspection: normal respiratory effort and able to speak in complete sentences Auscultation: no crackles, no rales, no rhonchi, no wheezes and diminished lung sounds Cardio: Jugular venous distension: no JVD GI: Inspection: normal to inspection Skin: General skin exam: normal color Neuro: General: oriented to person, oriented to place and oriented to time Extrem: General: normal to inspection Psych: Appearance: grossly normal Objective Data Vital Signs Vital Signs: Vital Signs - 24 hr 11/25/24 11:26 11/25/24 14:19 11/25/24 14:29 Temperature 36.4 C Pulse Rate 76 82 85 Respiratory Rate 16 20 20 Blood Pressure 126/73 Pulse Oximetry 98 Oxygen Delivery Oxygen Flow Rate 11/25/24 16:00 11/25/24 18:11 11/25/24 20:00 Temperature 36.4 C L Pulse Rate 89 Respiratory Rate 22 H Blood Pressure 121/78 Pulse Oximetry 100 100 100 Oxygen Delivery Nasal Cannula Nasal Cannula Oxygen Flow Rate 3 3 11/25/24 21:08 11/25/24 21:21 11/25/24 21:33 Temperature 36.7 C Pulse Rate 97 89 Respiratory Rate 20 20 Blood Pressure 128/82 Pulse Oximetry 99 98 Oxygen Delivery Nasal Cannula Oxygen Flow Rate 3 11/25/24 21:33 11/26/24 02:28 11/26/24 02:38 Temperature Pulse Rate 90 69 75 Respiratory Rate 20 20 20 Blood Pressure Pulse Oximetry Oxygen Delivery Oxygen Flow Rate 11/26/24 05:41 11/26/24 07:10 11/26/24 07:10 Temperature 36.7 C Pulse Rate 67 76 76 Respiratory Rate 18 18 18 Blood Pressure 112/70 Pulse Oximetry 99 98 Oxygen Delivery Nasal Cannula Oxygen Flow Rate 3 11/26/24 07:20 Temperature Pulse Rate 78 Respiratory Rate 20 Blood Pressure Pulse Oximetry Oxygen Delivery Oxygen Flow Rate Intake/Output Intake/Output: Intake & Output 11/23/24 11/24/24 11/25/24 11/26/24 23:59 23:59 23:59 23:59 Intake Total 2860 2410 2170 600 Output Total 2350 1800 3750 150 Balance 510 610 -1580 450 Meds/Results Medications: Active Medications Generic Name Dose Route Start Last Admin Trade Name Freq PRN Reason Stop Dose Admin Acetaminophen 650 mg 11/21/24 09:04 11/23/24 14:58 Acetaminophen 325 Mg Tablet PO 650 mg Q4H PRN Administration Mild Pain (1-3) or Fever Acyclovir 400 mg 11/21/24 22:00 11/26/24 05:50 Acyclovir 400 Mg Tablet PO 400 mg Q8HR ROSA MARIA Administration Albuterol/Ipratropium 3 ml 11/21/24 14:00 11/26/24 07:10 Ipratropium 0.5 Mg/Albuterol Sulfate 2.5 Mg Ampul.Neb 3 Ml INHALATION 3 ml Q6HRT ROSA MARIA Administration Atorvastatin Calcium 40 mg 11/24/24 09:00 11/26/24 09:31 Atorvastatin 40 Mg Tablet PO 40 mg DAILY ROSA MARIA Administration Azithromycin 500 mg 11/26/24 09:00 11/26/24 09:31 Azithromycin 250 Mg Tablet PO 500 mg DAILY ROSA MARIA Administration Clopidogrel Bisulfate 75 mg 11/22/24 09:00 11/26/24 09:31 Clopidogrel Bisulfate 75 Mg Tablet PO 75 mg DAILY ROSA MARIA Administration Dextrose 12.5 gm 11/21/24 14:49 Dextrose 50% 25 Gm/50 Ml Syringe IV PUSH PRN PRN Hypoglycemia Protocol Ethambutol HCl 1,200 mg 11/25/24 09:00 11/26/24 09:32 Home Med Ethambutol Hcl 400 Mg Tablet PO 1,200 mg QAM ROSA MARIA Administration Glucagon 1 mg 11/21/24 14:49 Glucagon For Inj 1 Mg Vial IM PRN PRN Hypoglycemia Protocol Glucose 15 gm 11/21/24 14:49 Glucose Oral Gel 15 Gm Of Glucse In 37.5 Gm Tube PO PRN PRN Hypoglycemia Protocol Cefepime HCl 2 gm in 50 mls @ 100 mls/hr 11/21/24 14:00 11/26/24 06:20 Maxipime 2 Gm/Ns 50 Ml IVPB Infused Q8H ROSA MARIA Infusion Dextrose 1,000 mls @ 100 mls/hr 11/21/24 14:49 Dextrose 5% 1,000 Ml IVPB PRN PRN Hypoglycemia Protocol Vancomycin HCl 1,250 mg in 250 mls @ 166.667 mls/hr 11/25/24 20:00 11/25/24 23:08 Vancomycin 1,250 Mg/Ns 250 Ml IVPB Infused Q24H ROSA MARIA Infusion Insulin Aspart 4 - 8 units 11/24/24 08:00 11/26/24 09:29 Insulin Aspart (*Bkc) 100 Units/Ml SUB-Q Not Given TIDWM ROSA MARIA Protocol Insulin Aspart 2 - 4 units 11/23/24 21:00 11/25/24 21:16 Insulin Aspart (*Bkc) 100 Units/Ml SUB-Q Not Given HS ROSA MARIA Protocol Insulin Glargine 9 units 11/23/24 21:00 11/25/24 21:45 Insulin Glargine (*Bkc) 100 Units/Ml 0.15 units/kg (9 units) 9 units SUB-Q Administration HS ROSA MARIA Melatonin 3 mg 11/22/24 21:00 11/25/24 21:39 Melatonin 3 Mg Tablet PO 3 mg HS ROSA MARIA Administration Montelukast Sodium 10 mg 11/21/24 21:00 11/25/24 21:38 Montelukast Sodium 10 Mg Tablet PO 10 mg HS ROSA MARIA Administration Mycophenolate Mofetil 1,000 mg 11/21/24 21:00 11/22/24 09:27 Mycophenolate Mofetil 250 Mg Capsule PO 1,000 mg Q12H ROSA MARIA Administration * Home Med * 2 each 11/25/24 09:00 11/26/24 09:35 Isavuconazonium ( PO 12/25/24 08:59 2 each Cresemba) 186 Mg DAILY ROSA MARIA Administration Tablet * Home Med * 2 each 11/26/24 09:00 11/26/24 09:34 Clofazimine 50 Mg PO 12/25/24 08:59 2 each Oral Capsule DAILY ROSA MARIA Administration Pantoprazole Sodium 40 mg 11/21/24 21:00 11/26/24 09:32 Pantoprazole 40 Mg Tablet PO 40 mg Q12H ROSA MARIA Administration Rivaroxaban 20 mg 11/22/24 17:00 11/25/24 17:20 Rivaroxaban 20 Mg Tablet PO 20 mg DAILY@1700 ROSA MARIA Administration Tacrolimus 0.5 mg 11/22/24 17:00 11/24/24 18:25 Tacrolimus 0.5 Mg Capsule PO 0.5 mg Q48H ROSA MARIA Administration Radiology Results: ITS Impressions Chest X-Ray 11/21/24 07:07 IMPRESSION: Mild new patchy nodular infiltrate in the left mid and lower lung zones, suggesting pneumonia Severe COPD Chronic severe right upper lobe atelectasis and scarring, possible cavitation Chest CT 11/24/24 05:21 Impression: New area of groundglass opacity in the inferior left upper lobe/lingula, compatible with infectious/inflammatory process. Additional pulmonary findings are otherwise essentially unchanged, including r ight upper lobe consolidation with areas of cavitary change as well as scattered additional bilateral areas of focal consolidation and nodularity. Moderate emphysema. Labs Labs: Laboratory Results - last 24 hr 11/25/24 11/25/24 11/25/24 11:46 15:50 17:03 Creatinine Estim Creat Clear Calc Estimated GFR POC Capillary Glucose 152 H 198 H 182 H Vancomycin Trough 11/25/24 11/25/24 11/26/24 19:13 19:43 06:41 Creatinine 0.60 L Estim Creat Clear Calc 96 Estimated GFR > 60 POC Capillary Glucose 180 H Vancomycin Trough 17.8 11/26/24 08:01 Creatinine Estim Creat Clear Calc Estimated GFR POC Capillary Glucose 122 H Vancomycin Trough
[2024-11-26] MEDS: UMECLIDINIUM/VILANTEROL 62.5-25 MCG ELLIPTA 1 PUFF INHALATION (11:27)
[2024-11-26 12:12] LABS: Glucose Point of Care 165 mg/dl (65-105)
--- NOTE | 2024-11-26 15:33 | P.PNIM_ITS ---
Progress Note: A&P Assessment and Plan (1) Acute and chronic respiratory failure with hypoxia: Code(s): J96.21 - Acute and chronic respiratory failure with hypoxia Status: Acute (2) Pneumonia: Qualifiers: Laterality: bilateral Lung location: lower lobe of lung Pneumonia type: due to unspecified organism Qualified Code(s): J18.9 - Pneumonia, unspecified organism Code(s): J18.9 - Pneumonia, unspecified organism Status: Acute (3) COPD (chronic obstructive pulmonary disease): Qualifiers: COPD type: COPD with acute exacerbation Qualified Code(s): J44.1 - Chronic obstructive pulmonary disease with (acute) exacerbation Code(s): J44.9 - Chronic obstructive pulmonary disease, unspecified Status: Acute (4) Elevated troponin: Code(s): R79.89 - Other specified abnormal findings of blood chemistry Status: Acute (5) Chronic ztvvr-ykkaud-yklx disease: Code(s): D89.811 - Chronic bwfrw-fyczlj-rztg disease Status: Acute (6) Insulin dependent type 2 diabetes mellitus: Code(s): E11.9 - Type 2 diabetes mellitus without complications; Z79.4 - FPC (current) use of insulin Status: Acute Assessment and Plan: A1c 6.2. The patient's blood glucose was reviewed on 11/24 (7) Mycobacterium avium complex: Code(s): A31.0 - Pulmonary mycobacterial infection Status: Acute Assessment and Plan: As above Plan (1) Acute and chronic respiratory failure with hypoxia: Code(s): J96.21 - Acute and chronic respiratory failure with hypoxia Status: Acute Assessment and Plan: The patient presented to the emergency department for evaluation of worsening shortness of breath He was just discharged from [place] a couple of days ago and he states they sent him home with abx. Records requested but no received. Hx of pseudomonas by prior sputum cultures (colonized?) CXR here showing mild new patchy nodular infiltrate in the left mid and lower lung. Cultures obtained and started on Vanco, Azithro and Rocephin. Rocephin changed to Cefepime on 11/21 WBC 13K and now trending down. MRSA nasal swab negative. BCx NGTD Sputum Cx negative. AFB pending Pulmonology consult and apprecaite their input CT chest showing focal consolidation of the posterior medial left upper lobe/left apex with new area of central cavitation. Stable 7 mm left upper lobe pulmonary nodule. Stable 8 mm right upper lobe pulmonary nodule. New area of groundglass opacity in the inferior left upper lobe/lingula. Stable focal nodular irregular consolidation at the extreme left lung base. There is probable moderate emphysematous change of the lungs. New cavitary lesion. Could be MAC but new since Oct 23 2024 so consider bacterial Patient is immnosuppressed. Tacrolimus and mycophenolate on hold. Pulmonary recommended transfer for ID evaluation and patient agreeable. He feels better and tolerating O2 wean. Contacted [facility] to arrange for transfer Pt followed by infectious disease at [facility]. (2) Pneumonia: Qualifiers: Laterality: bilateral Lung location: lower lobe of lung Pneumonia t ype: due to unspecified organism Qualified Code(s): J18.9 - Pneumonia, unspecified organism Code(s): J18.9 - Pneumonia, unspecified organism Status: Acute Assessment and Plan: As above. Patient also undergoing treatment for MAC. Somewhat unclear if he has completed a course of treatment or not. BCx NGTD. Sputum Cx negative Patient with bacterial pneumonia and at this time, we are holding the mycophenolate and tacrolimas. He was on steroids for possible COPD exacerbation but these have been stopped. Continue Anoro Ellipta. Continue vancomycin cefepime and azithromycin all day 5. Awaiting [facility] transfer. (3) COPD (chronic obstructive pulmonary disease): Qualifiers: COPD type: COPD with acute exacerbation Qualified Code(s): J44.1 - Chronic obstructive pulmonary disease with (acute) exacerbation Code(s): J44.9 - Chronic obstructive pulmonary disease, unspecified Status: Acute Assessment and Plan: Patient also with COPD exacerbation. Treated with Solu-Medrol and bronchodilators. Steroids stopped. (4) Elevated troponin: Code(s): R79.89 - Other specified abnormal findings of blood chemistry Status: Acute Assessment and Plan: Hx of CAD s/p stent 100% occlusion mid RCA s/p drug-eluting stent, left coronary system with zrar-ku-fpljrgvr disease (12/30/22) Troponin elevated to 0.11 likely due to hypoxia and tachycardia EKG showing sinus tachycardia (114), nonspecific T wave changes. Cardiology consulted. Continue Plavix. Was not on a statin so added (5) Chronic vyshc-klqjqj-ihcr disease: Code(s): D89.811 - Chronic nrqev-trybed-onun disease Status: Acute Assessment and Plan: As above. Holding anti-rejection meds with active infection Resume as soon as possible. Continue Acyclovir. (6) Insulin dependent type 2 diabetes mellitus: Code(s): E11.9 - Type 2 diabetes mellitus without complications; Z79.4 - FPC (current) use of insulin Status: Acute Assessment and Plan: A1c 6.2. The patient's blood glucose was reviewed on 11/24 Glucose remains elevated related to the steroids. Continue AccuCheks covering with sliding scale. Hypoglycemia protocol available as needed. last steroid dose was this morning. Continue to monitor. 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 Subjective Date/time seen: 11/26/24 15:33 Interval history: I saw exam patient today. Patient patient denies chest pain abdomen pain, nausea vomiting. No significant dyspnea at rest. Patient has mild cough without phlegm. Patient is afebrile, blood pressure stable, leukocytosis persist Exam Narrative: GENERAL: Ill-appearing in no acute distress. Well-nourished. - EYES: EOMI. Anicteric. - HENT: Moist mucous membranes. - LUNGS: Clear to auscultation bilateral ly, no wheezing, rhonchi, or rales. - CARDIOVASCULAR: Regular rate and rhyth m. No murmur. No JVD. - ABDOMEN: Soft, non-tender and non-dist ended. No palpable masses. - EXTREMITIES: No edema. Peripheral puls es 2+. Non-tender. - NEUROLOGIC: No focal neurological defi cits. CN II-XII grossly intact. - PSYCHIATRIC: Awake, Alert and oriented x 3. Appropriate mood and affect. - SKIN: No rashes or lesions. Warm. - LYMPH: No cervical lymphadenopathy. Objective Data Vital Signs Vital Signs: Vital Signs - 24 hr 11/25/24 16:00 11/25/24 18:11 11/25/24 20:00 Temperature 97.5 F L Pulse Rate 89 Respiratory Rate 22 H Blood Pressure 121/78 Pulse Oximetry 100 100 100 Oxygen Delivery Nasal Cannula Nasal Cannula Oxygen Flow Rate 3 3 11/25/24 21:08 11/25/24 21:21 11/25/24 21:33 Temperature 98.0 F Pulse Rate 97 89 Respiratory Rate 20 20 Blood Pressure 128/82 Pulse Oximetry 99 98 Oxygen Delivery Nasal Cannula Oxygen Flow Rate 3 11/25/24 21:33 11/26/24 02:28 11/26/24 02:38 Temperature Pulse Rate 90 69 75 Respiratory Rate 20 20 20 Blood Pressure Pulse Oximetry Oxygen Delivery Oxygen Flow Rate 11/26/24 05:41 11/26/24 07:10 11/26/24 07:10 Temperature 98.1 F Pulse Rate 67 76 76 Respiratory Rate 18 18 18 Blood Pressure 112/70 Pulse Oximetry 99 98 Oxygen Delivery Nasal Cannula Oxygen Flow Rate 3 11/26/24 07:20 Temperature Pulse Rate 78 Respiratory Rate 20 Blood Pressure Pulse Oximetry Oxygen Delivery Oxygen Flow Rate Intake/Output Intake/Output: Intake & Output 11/23/24 11/24/24 11/25/24 11/26/24 23:59 23:59 23:59 23:59 Intake Total 2860 2410 2170 600 Output Total 2350 1800 3750 150 Balance 510 610 -1580 450 Meds/Results Medications: Active Medications Generic Name Dose Route Start Last Admin Trade Name Freq PRN Reason Stop Dose Admin Acetaminophen 650 mg 11/21/24 09:04 11/23/24 14:58 Acetaminophen 325 Mg Tablet PO 650 mg Q4H PRN Administration Mild Pain (1-3) or Fever Acyclovir 400 mg 11/21/24 22:00 11/26/24 14:34 Acyclovir 400 Mg Tablet PO 400 mg Q8HR ROSA MARIA Administration Atorvastatin Calcium 40 mg 11/24/24 09:00 11/26/24 09:31 Atorvastatin 40 Mg Tablet PO 40 mg DAILY ROSA MARIA Administration Azithromycin 500 mg 11/26/24 09:00 11/26/24 09:31 Azithromycin 250 Mg Tablet PO 500 mg DAILY ROSA MARIA Administration Calcium Carbonate 200 mg 11/26/24 14:52 Calcium Carbonate (Tums) 500 Mg (200 Mg Elemental) PO Q6H PRN Indigestion Clopidogrel Bisulfate 75 mg 11/22/24 09:00 11/26/24 09:31 Clopidogrel Bisulfate 75 Mg Tablet PO 75 mg DAILY ROSA MARIA Administration Dextrose 12.5 gm 11/21/24 14:49 Dextrose 50% 25 Gm/50 Ml Syringe IV PUSH PRN PRN Hypoglycemia Protocol Ethambutol HCl 1,200 mg 11/25/24 09:00 11/26/24 09:32 Home Med Ethambutol Hcl 400 Mg Tablet PO 1,200 mg QAM ROSA MARIA Administration Glucagon 1 mg 11/21/24 14:49 Glucagon For Inj 1 Mg Vial IM PRN PRN Hypoglycemia Protocol Glucose 15 gm 11/21/24 14:49 Glucose Oral Gel 15 Gm Of Glucse In 37.5 Gm Tube PO PRN PRN Hypoglycemia Protocol Cefepime HCl 2 gm in 50 mls @ 100 mls/hr 11/21/24 14:00 11/26/24 14:34 Maxipime 2 Gm/Ns 50 Ml IVPB 100 mls/hr Q8H ROSA MARIA Administration Dextrose 1,000 mls @ 100 mls/hr 11/21/24 14:49 Dextrose 5% 1,000 Ml IVPB PRN PRN Hypoglycemia Protocol Vancomycin HCl 1,250 mg in 250 mls @ 166.667 mls/hr 11/25/24 20:00 11/25/24 23:08 Vancomycin 1,250 Mg/Ns 250 Ml IVPB Infused Q24H ROSA MARIA Infusion Insulin Aspart 4 - 8 units 11/24/24 08:00 11/26/24 12:19 Insulin Aspart (*Bkc) 100 Units/Ml SUB-Q Not Given TIDWM [facility] Protocol Insulin Aspart 2 - 4 units 11/23/24 21:00 11/25/24 21:16 Insulin Aspart (*Bkc) 100 Units/Ml SUB-Q Not Given HS [facility] Protocol Insulin Glargine 9 units 11/23/24 21:00 11/25/24 21:45 Insulin Glargine (*Bkc) 100 Units/Ml 0.15 units/kg (9 units) 9 units SUB-Q Administration HS ROSA MARIA Melatonin 3 mg 11/22/24 21:00 11/25/24 21:39 Melatonin 3 Mg Tablet PO 3 mg HS ROSA MARIA Administration Montelukast Sodium 10 mg 11/21/24 21:00 11/25/24 21:38 Montelukast Sodium 10 Mg Tablet PO 10 mg HS ROSA MARIA Administration Mycophenolate Mofetil 1,000 mg 11/21/24 21:00 11/22/24 09:27 Mycophenolate Mofetil 250 Mg Capsule PO 1,000 mg Q12H ROSA MARIA Administration * Home Med * 2 each 11/25/24 09:00 11/26/24 09:35 Isavuconazonium ( PO 12/25/24 08:59 2 each Cresemba) 186 Mg DAILY ROSA MARIA Administration Tablet * Home Med * 2 each 11/26/24 09:00 11/26/24 09:34 Clofazimine 50 Mg PO 12/25/24 08:59 2 each Oral Capsule DAILY ROSA MARIA Administration Pantoprazole Sodium 40 mg 11/21/24 21:00 11/26/24 09:32 Pantoprazole 40 Mg Tablet PO 40 mg Q12H ROSA MARIA Administration Rivaroxaban 20 mg 11/22/24 17:00 11/25/24 17:20 Rivaroxaban 20 Mg Tablet PO 20 mg DAILY@1700 ROSA MARIA Administration Tacrolimus 0.5 mg 11/22/24 17:00 11/24/24 18:25 Tacrolimus 0.5 Mg Capsule PO 0.5 mg Q48H ROSA MARIA Administration Umeclidinium/Vilanterol 1 puff 11/26/24 11:15 11/26/24 11:27 Umeclidinium/Vilanterol 62.5-25 Mcg Ellipta INHALATION 1 puff DAILYRT ROSA MARIA Administration Radiology Results: ITS Impressions Chest X-Ray 11/21/24 07:07 IMPRESSION: Mild new patchy nodular infiltrate in the left mid and lower lung zones, suggesting pneumonia Severe COPD Chronic severe right upper lobe atelectasis and scarring, possible cavitation Chest CT 11/24/24 05:21 Impression: New area of groundglass opacity in the inferior left upper lobe/lingula, compatible with infectious/inflammatory process. Additional pulmonary findings are otherwise essentially unchanged, including right upper lobe consolidation with areas of cavitary change as well as scattered additional bilateral areas of focal consolidation and nodularity. Moderate emphysema. Labs Labs: Laboratory Results - last 24 hr 11/25/24 11/25/24 11/25/24 15:50 17:03 19:13 Creatinine Estim Creat Clear Calc Estimated GFR POC Capillary Glucose 198 H 182 H Vancomycin Trough 17.8 11/25/24 11/26/24 11/26/24 19:43 06:41 08:01 Creatinine 0.60 L Estim Creat Clear Calc 96 Estimated GFR > 60 POC Capillary Glucose 180 H 122 H Vancomycin Trough 11/26/24 12:04 Creatinine Estim Creat Clear Calc Estimated GFR POC Capillary Glucose 165 H Vancomycin Trough
[2024-11-26] MEDS: TACROLIMUS 0.5 MG CAPSULE PO (16:59)
[2024-11-26] MEDS: RIVAROXABAN 20 MG TABLET PO (16:59)
[2024-11-26 17:11] LABS: Glucose Point of Care 165 mg/dl (65-105)
[2024-11-26] MEDS: VANCOMYCIN 1,250 MG/NS 250 ML 1,250 MG/250 ML BAG 166 MG IVPB (20:13)
[2024-11-26 20:43] LABS: Glucose Point of Care 398 mg/dl (65-105)
[2024-11-26] MEDS: MONTELUKAST SODIUM 10 MG TABLET PO (21:03)
[2024-11-26] MEDS: MELATONIN 3 MG TABLET PO (21:03)
[2024-11-26] MEDS: INSULIN ASPART (*BKC) 100 UNITS/ML SUB-Q (21:04)
[2024-11-26] MEDS: INSULIN GLARGINE (*BKC) 100 UNITS/ML 9 UNITS SUB-Q (21:04)
[2024-11-26 23:29] LABS: Glucose Point of Care 58 mg/dl (65-105)
[2024-11-26 23:50] LABS: Glucose Point of Care 66 mg/dl (65-105)
[2024-11-27 00:18] LABS: Glucose Point of Care 91 mg/dl (65-105)
[2024-11-27 06:00] VITALS: BP 125/67; PULSE 57; RESP 20; TEMP 36.2; O2SAT 100
[2024-11-27] MEDS: CEFEPIME 2 GM/NS 50 ML 2 GM/50 ML BAG IVPB ×3 (06:22→23:15)
[2024-11-27] MEDS: ACYCLOVIR 400 MG TABLET PO ×3 (06:22→22:00)
[2024-11-27 07:57] LABS: Glucose Point of Care 84 mg/dl (65-105)
[2024-11-27 08:10] VITALS: O2SAT 97
[2024-11-27 08:38] LABS: Basophils Percent Auto 0.2 % (0.2-1.2); Eosinophils Absolute Auto 0.3 K/mm3 (0-0.3); Eosinophils Percent Auto 2.6 % (0-4.4); Hemoglobin 11.8 g/dL (14.0-18.0); Immature Granulocyte Absolute 0.18 K/mm3 (0.00-0.031); Immature Granulocyte Percent A 1.8 % (0-0.5); Lymphocytes Absolute Auto 3.99 K/mm3 (0.9-3.2); Lymphocytes Percent Auto 39.4 % (18.3-44.2); Mean Corpuscular HGB Conc 32.8 g/dl (32-36); Mean Corpuscular Hemoglobin 35.1 pg (26-34); Mean Corpuscular Volume 107.1 fl (80-100); Mean Platelet Volume 10.2 fl (7.4-10.4); Monocytes Absolute Auto 1.1 K/mm3 (0.1-0.6); Monocytes Percent Auto 11.1 % (2.6-8.5); Neutrophils Absolute Auto 4.6 K/mm3 (1.3-6.7); Neutrophils Percent Auto 44.9 % (45.5-73.1); Platelet Count Result 428 k/mm3 (150-375); Red Blood Count 3.36 M/mm3 (4.6-6.20); Red Cell Distribution Width 14.6 % (11.5-14.5); White Blood Count 10.1 K/mm3 (4.5-10.0)
[2024-11-27] MEDS: ETHAMBUTOL HCL 1200 MG PO (09:12)
[2024-11-27] MEDS: ATORVASTATIN 40 MG TABLET PO (09:12)
[2024-11-27] MEDS: PANTOPRAZOLE 40 MG TABLET PO ×2 (09:12→22:01)
[2024-11-27] MEDS: CLOPIDOGREL BISULFATE 75 MG TABLET PO (09:12)
[2024-11-27] MEDS: AZITHROMYCIN 250 MG TABLET 500 MG PO (09:12)
[2024-11-27 09:14] LABS: Hypochromasia 1+; Macrocytosis 2+ (NORMAL); Platelet Estimate Increased (Adequate); Schistocytes None Seen; Target Cells 1+
[2024-11-27] MEDS: ISAVUCONAZONIUM 186 MG 2 EACH PO (09:14)
[2024-11-27] MEDS: CLOFAZIMINE 2 EACH PO (09:14)
[2024-11-27 09:15] VITALS: O2SAT 95
[2024-11-27 09:51] LABS: Alanine Aminotransferase 48 U/L (6-50); Albumin Level 3.1 g/dL (3.5-5.1); Alkaline Phosphatase 95 U/L (38-126); Aspartate Amino Transferase 30 U/L (17-59); Bilirubin,Total 0.6 mg/dL (0.2-1.3); Blood Urea Nitrogen 25 mg/dL (9-20); Calcium 8.5 mg/dL (8.4-10.2); Chloride 97 mmol/L (98-107); Estimated CRCL calculation 97 ml/min; Estimated Glomerular Filt Rate > 60; Glucose 115 mg/dL (65-110); Potassium 3.7 mmol/L (3.4-5.0); Sodium 136 mmol/L (137-145)
[2024-11-27 11:00] LABS: Anion Gap 2 mmol/L (4-12); Carbon Dioxide 37 mmol/L (22-30)
[2024-11-27 12:09] LABS: Glucose Point of Care 260 mg/dl (65-105)
[2024-11-27] MEDS: INSULIN ASPART (*BKC) 100 UNITS/ML SUB-Q (12:44)
--- NOTE | 2024-11-27 13:12 | PCNWS ---
Weekly nutritional screen. Patient is tolerating current diabetic diet with adequate intake, 80-100%. No weight loss reported. Low BMI is chronic, weight is stable. No nutritional needs at this time.
--- NOTE | 2024-11-27 13:14 | PM.IMPN ---
Progress Note: A&P Assessment and Plan (1) Acute and chronic respiratory failure with hypoxia: Code(s): J96.21 - Acute and chronic respiratory failure with hypoxia Status: Acute (2) Pneumonia: Qualifiers: Laterality: bilateral Lung location: lower lobe of lung Pneumonia type: due to unspecified organism Qualified Code(s): J18.9 - Pneumonia, unspecified organism Code(s): J18.9 - Pneumonia, unspecified organism Status: Acute (3) COPD (chronic obstructive pulmonary disease): Qualifiers: COPD type: COPD with acute exacerbation Qualified Code(s): J44.1 - Chronic obstructive pulmonary disease with (acute) exacerbation Code(s): J44.9 - Chronic obstructive pulmonary disease, unspecified Status: Acute (4) Elevated troponin: Code(s): R79.89 - Other specified abnormal findings of blood chemistry Status: Acute (5) Chronic zgxud-xkrnxr-giyp disease: Code(s): D89.811 - Chronic tnrxm-mrrhpu-fpqr disease Status: Acute (6) Insulin dependent type 2 diabetes mellitus: Code(s): E11.9 - Type 2 diabetes mellitus without complications; Z79.4 - intermediate (current) use of insulin Status: Acute Assessment and Plan: A1c 6.2. The patient's blood glucose was reviewed on 11/24 (7) Mycobacterium avium complex: Code(s): A31.0 - Pulmonary mycobacterial infection Status: Acute Assessment and Plan: As above Plan # Acute and chronic respiratory failure with hypoxia: The patient presented to the emergency department for evaluation of worsening shortness of breath He was just discharged from [facility] a couple of days ago and he states they sent him home with abx. Records requested but no received. Hx of pseudomonas by prior sputum cultures (colonized?) CXR here showing mild new patchy nodular infiltrate in the left mid and lower lung. Cultures obtained and started on Vanco, Azithro and Rocephin. Rocephin changed to Cefepime on 11/21 WBC 13K and now trending down. MRSA nasal swab negative. BCx NGTD Sputum Cx negative. AFB pending Pulmonology consult and apprecaite their input CT chest showing focal consolidation of the posterior medial left upper lobe/left apex with new area of central cavitation. Stable 7 mm left upper lobe pulmonary nodule. Stable 8 mm right upper lobe pulmonary nodule. New area of groundglass opacity in the inferior left upper lobe/lingula. Stable focal nodular irregular consolidation at the extreme left lung base. There is probable moderate emphysematous change of the lungs. New cavitary lesion. Could be MAC but new since Oct 23 2024 so consider bacterial Patient is immnosuppressed. Tacrolimus and mycophenolate on hold. Pulmonary recommended transfer for ID evaluation and patient agreeable. He feels better and tolerating O2 wean. Contacted [facility] to arrange for transfer Pt followed by infectious disease at [facility]. # Pneumonia: As above. Patient also undergoing treatment for MAC. Somewhat unclear if he has completed a course of treatment or not. BCx NGTD. Sputum Cx negative Patient with bacterial pneumonia and at this time, we are holding the mycophenolate and tacrolimas. He was on steroids for possible COPD exacerbation but these have been stopped. Continue Anoro Ellipta. Continue vancomycin cefepime and azithromycin all day 5. Awaiting [facility] transfer. # COPD (chronic obstructive pulmonary disease): Patient also with COPD exacerbation. Treated with Solu-Medrol and bronchodilators. Steroids stopped. # Elevated troponin: Hx of CAD s/p stent 100% occlusion mid RCA s/p drug-eluting stent, left coronary system with hwha-hq-btxpjryr disease (12/30/22) Troponin elevated to 0.11 likely due to hypoxia and tachycardia EKG showing sinus tachycardia (114), nonspecific T wave changes. Cardiology consulted. Continue Plavix. Was not on a statin so added # Chronic vihqq-evehdi-xrxt disease: Delete As above. Holding anti-rejection meds with active infection Resume as soon as possible. Continue Acyclovir. # Insulin dependent type 2 diabetes mellitus: A1c 6.2. Glucose remains elevated related to the steroids. Continue AccuCheks covering with sliding scale. Hypoglycemia protocol available as needed. 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 Subjective Date/time seen: 11/27/24 13:14 Interval history: No overnight events. Feeling better. Mild cough present. Delete Review of Systems Review of Systems: All systems reviewed & are unremarkable except as noted in HPI and below Exam Narrative: GENERAL: Ill-appearing in no acute distress. Well-nourished. - EYES: EOMI. Anicteric. - HENT: Moist mucous membranes. - LUNGS: Coarse breath sound to auscultation bilaterally, no wheezing, rhonchi, or rales. - CARDIOVASCULAR: Regular rate and rhythm. No murmur. No JVD. - ABDOMEN: Soft, non-tender and non-distended. No palpable masses. - EXTREMITIES: No edema. Peripheral pulses 2+. Non-tender. - NEUROLOGIC: No focal neurological deficits. CN II-XII grossly intact. - PSYCHIATRIC: Awake, Alert and oriented x 3. Appropriate mood and affect. - SKIN: No rashes or lesions. Warm. - LYMPH: No cervical lymphadenopathy. Objective Data Vital Signs Vital Signs: Vital Signs - 24 hr 11/26/24 14:00 11/26/24 21:55 11/26/24 22:27 Temperature 98.3 F 98.4 F Pulse Rate 92 84 Respiratory Rate 18 18 Blood Pressure 131/88 123/72 Pulse Oximetry 99 100 100 Oxygen Delivery Nasal Cannula Oxygen Flow Rate 2 Fraction of Inspired Oxygen 11/27/24 06:00 11/27/24 08:10 Temperature 97.2 F L Pulse Rate 57 L Respiratory Rate 20 Blood Pressure 125/67 Pulse Oximetry 100 97 Oxygen Delivery Nasal Cannula Oxygen Flow Rate 3 Fraction of Inspired Oxygen 32 Intake/Output Intake/Output: Intake & Output 11/24/24 11/25/24 11/26/24 11/27/24 23:59 23:59 23:59 23:59 Intake Total 2410 2170 2550 870 Output Total 1800 3750 1350 600 Balance 610 -1580 1200 270 Meds/Results Medications: Active Medications Generic Name Dose Route Start Last Admin Trade Name Freq PRN Reason Stop Dose Admin Acetaminophen 650 mg 11/21/24 09:04 11/23/24 14:58 Acetaminophen 325 Mg Tablet PO 650 mg Q4H PRN Administration Mild Pain (1-3) or Fever Acyclovir 400 mg 11/21/24 22:00 11/27/24 06:22 Acyclovir 400 Mg Tablet PO 400 mg Q8HR ROSA MARIA Administration Atorvastatin Calcium 40 mg 11/24/24 09:00 11/27/24 09:12 Atorvastatin 40 Mg Tablet PO 40 mg DAILY ROSA MARIA Administration Azithromycin 500 mg 11/26/24 09:00 11/27/24 09:12 Azithromycin 250 Mg Tablet PO 500 mg DAILY ROSA MARIA Administration Calcium Carbonate 200 mg 11/26/24 14:52 Calcium Carbonate (Tums) 500 Mg (200 Mg Elemental) PO Q6H PRN Indigestion Clopidogrel Bisulfate 75 mg 11/22/24 09:00 11/27/24 09:12 Clopidogrel Bisulfate 75 Mg Tablet PO 75 mg DAILY ROSA MARIA Administration Dextrose 12.5 gm 11/21/24 14:49 Dextrose 50% 25 Gm/50 Ml Syringe IV PUSH PRN PRN Hypoglycemia Protocol Ethambutol HCl 1,200 mg 11/25/24 09:00 11/27/24 09:12 Home Med Ethambutol Hcl 400 Mg Tablet PO 1,200 mg QAM ROSA MARIA Administration Glucagon 1 mg 11/21/24 14:49 Glucagon For Inj 1 Mg Vial IM PRN PRN Hypoglycemia Protocol Glucose 15 gm 11/21/24 14:49 Glucose Oral Gel 15 Gm Of Glucse In 37.5 Gm Tube PO PRN PRN Hypoglycemia Protocol Cefepime HCl 2 gm in 50 mls @ 100 mls/hr 11/21/24 14:00 11/27/24 06:22 Maxipime 2 Gm/Ns 50 Ml IVPB 100 mls/hr Q8H ROSA MARIA Administration Dextrose 1,000 mls @ 100 mls/hr 11/21/24 14:49 Dextrose 5% 1,000 Ml IVPB PRN PRN Hypoglycemia Protocol Vancomycin HCl 1,250 mg in 250 mls @ 166.667 mls/hr 11/25/24 20:00 11/26/24 21:50 Vancomycin 1,250 Mg/Ns 250 Ml IVPB Infused Q24H ROSA MARIA Infusion Insulin Aspart 4 - 8 units 11/24/24 08:00 11/27/24 12:44 Insulin Aspart (*Bkc) 100 Units/Ml SUB-Q 5 units TIDWM [facility] Administration Protocol Insulin Aspart 2 - 4 units 11/23/24 21:00 11/26/24 21:04 Insulin Aspart (*Bkc) 100 Units/Ml SUB-Q 4 units HS [facility] Administration Protocol Insulin Glargine 9 units 11/23/24 21:00 11/26/24 21:04 Insulin Glargine (*Bkc) 100 Units/Ml 0.15 units/kg (9 units) 9 units SUB-Q Administration HS ROSA MARIA Melatonin 3 mg 11/22/24 21:00 11/26/24 21:03 Melatonin 3 Mg Tablet PO 3 mg HS ROSA MARIA Administration Montelukast Sodium 10 mg 11/21/24 21:00 11/26/24 21:03 Montelukast Sodium 10 Mg Tablet PO 10 mg HS ROSA MARIA Administration Mycophenolate Mofetil 1,000 mg 11/21/24 21:00 11/22/24 09:27 Mycophenolate Mofetil 250 Mg Capsule PO 1,000 mg Q12H ROSA MARIA Administration * Home Med * 2 each 11/25/24 09:00 11/27/24 09:14 Isavuconazonium ( PO 12/25/24 08:59 2 each Cresemba) 186 Mg DAILY ROSA MARIA Administration Tablet * Home Med * 2 each 11/26/24 09:00 11/27/24 09:14 Clofazimine 50 Mg PO 12/25/24 08:59 2 each Oral Capsule DAILY ROSA MARIA Administration Pantoprazole Sodium 40 mg 11/21/24 21:00 11/27/24 09:12 Pantoprazole 40 Mg Tablet PO 40 mg Q12H ROSA AMRIA Administration Rivaroxaban 20 mg 11/22/24 17:00 11/26/24 16:59 Rivaroxaban 20 Mg Tablet PO 20 mg DAILY@1700 ROSA MARIA Administration Tacrolimus 0.5 mg 11/22/24 17:00 11/26/24 16:59 Tacrolimus 0.5 Mg Capsule PO 0.5 mg Q48H ROSA MARIA Administration Umeclidinium/Vilanterol 1 puff 11/26/24 11:15 11/26/24 11:27 Umeclidinium/Vilanterol 62.5-25 Mcg Ellipta INHALATION 1 puff DAILYRT ROSA MARIA Administration Radiology Results: ITS Impressions Chest X-Ray 11/21/24 07:07 IMPRESSION: Mild new patchy nodular infiltrate in the left mid and lower lung zones, suggesting pneumonia Severe COPD Chronic severe right upper lobe atelectasis and scarring, possible cavitation Chest CT 11/24/24 05:21 Impression: New area of groundglass opacity in the inferior left upper lobe/lingula, compatible with infectious/inflammatory process. Additional pulmonary findings are otherwise essentially unchanged, including right upper lobe consolidation with areas of cavitary change as well as scattered additional bilateral areas of focal consolidation and nodularity. Moderate emphysema. Labs Labs: Laboratory Results - last 24 hr 11/26/24 11/26/24 11/26/24 16:46 20:37 23:24 WBC RBC Hgb Hct MCV MCH MCHC RDW Plt Count MPV Immature Gran % (Auto) Neut % (Auto) Lymph % (Auto) Gonzales % (Auto) Eos % (Auto) Baso % (Auto) Lymph # (Auto) Gonzales # (Auto) Eos # (Auto) Baso # (Auto) Abs Immat Gran (auto) Absolute Neuts (auto) Absolute Nucleated RBC Nucleated RBC % Platelet Estimate Hypochromasia Macrocytosis Target Cells Schistocytes Sodium Potassium Chloride Carbon Dioxide Anion Gap BUN Creatinine Estim Creat Clear Calc Estimated GFR Glucose POC Capillary Glucose 165 H 398 H 58 L* Calcium Total Bilirubin AST ALT Alkaline Phosphatase Total Protein Albumin 11/26/24 11/27/24 11/27/24 23:46 00:16 07:31 WBC RBC Hgb Hct MCV MCH MCHC RDW Plt Count MPV Immature Gran % (Auto) Neut % (Auto) Lymph % (Auto) Gonzales % (Auto) Eos % (Auto) Baso % (Auto) Lymph # (Auto) Gonzales # (Auto) Eos # (Auto) Baso # (Auto) Abs Immat Gran (auto) Absolute Neuts (auto) Absolute Nucleated RBC Nucleated RBC % Platelet Estimate Hypochromasia Macrocytosis Target Cells Schistocytes Sodium Potassium Chloride Carbon Dioxide Anion Gap BUN Creatinine Estim Creat Clear Calc Estimated GFR Glucose POC Capillary Glucose 66 91 84 Calcium Total Bilirubin AST ALT Alkaline Phosphatase Total Protein Albumin 11/27/24 11/27/24 08:13 11:52 WBC 10.1 H RBC 3.36 L Hgb 11.8 L Hct 36.0 L MCV 107.1 H MCH 35.1 H MCHC 32.8 RDW 14.6 H Plt Count 428 H MPV 10.2 Immature Gran % (Auto) 1.8 H Neut % (Auto) 44.9 L Lymph % (Auto) 39.4 Gonzales % (Auto) 11.1 H Eos % (Auto) 2.6 Baso % (Auto) 0.2 Lymph # (Auto) 3.99 H Gonzales # (Auto) 1.1 H Eos # (Auto) 0.3 Baso # (Auto) 0.0 Abs Immat Gran (auto) 0.18 H Absolute Neuts (auto) 4.6 Absolute Nucleated RBC 0.100 H Nucleated RBC % 1.0 H Platelet Estimate Increased Hypochromasia 1+ Macrocytosis 2+ Target Cells 1+ Schistocytes None seen Sodium 136 L Potassium 3.7 Chloride 97 L Carbon Dioxide 37 H Anion Gap 2 L BUN 25 H Creatinine 0.60 L Estim Creat Clear Calc 97 Estimated GFR > 60 Glucose 115 H POC Capillary Glucose 260 H Calcium 8.5 Total Bilirubin 0.6 AST 30 ALT 48 Alkaline Phosphatase 95 Total Protein 6.0 L Albumin 3.1 L
[2024-11-27 14:00] VITALS: BP 117/63; PULSE 53; RESP 18; TEMP 36.9; O2SAT 100
[2024-11-27 16:48] LABS: Glucose Point of Care 87 mg/dl (65-105)
[2024-11-27] MEDS: RIVAROXABAN 20 MG TABLET PO (17:09)
[2024-11-27 18:34] LABS: Pneumococcal Antigen Urine NOT DETECTED
[2024-11-27 19:41] LABS: Vancomycin Trough 12.4 ug/mL (10.0-20.0)
[2024-11-27] MEDS: VANCOMYCIN 1,500 MG/NS 500 ML 1,500 MG/500 ML BAG 250 MG IVPB (21:56)
[2024-11-27 22:00] VITALS: BP 109/69; PULSE 74; RESP 14; TEMP 36.6; O2SAT 99
[2024-11-27] MEDS: MONTELUKAST SODIUM 10 MG TABLET PO (22:00)
[2024-11-27] MEDS: MELATONIN 3 MG TABLET PO (22:00)
[2024-11-27] MEDS: INSULIN GLARGINE (*BKC) 100 UNITS/ML 9 UNITS SUB-Q (22:01)
[2024-11-27 22:45] LABS: Glucose Point of Care 197 mg/dl (65-105)
[2024-11-28 03:33] LABS: Adenovirus DNA Not Detected (Not Detected); Chlamydophila pneumoniae Not Detected (Not Detected); Coronavirus 229E Not Detected (Not Detected); Coronavirus HKU1 Not Detected (Not Detected); Coronavirus NL63 Not Detected (Not Detected); Coronavirus OC43 Not Detected (Not Detected); Human Metapneumovirus Not Detected (Not Detected); Human Parainfluenza Virus 1 Not Detected (Not Detected); Human Parainfluenza Virus 2 Not Detected (Not Detected); Human Parainfluenza Virus 3 Not Detected (Not Detected); Human Parainfluenza Virus 4 Not Detected (Not Detected); Human RSV B Not Detected (Not Detected); Influenza A Not Detected (Not Detected); Influenza B Not Detected (Not Detected); Mycoplasma pneumoniae Not Detected (Not Detected); Rhinovirus/Enterovirus Not Detected (Not Detected)
[2024-11-28 06:00] VITALS: BP 119/71; PULSE 72; RESP 16; TEMP 36.1; O2SAT 99
[2024-11-28] MEDS: CEFEPIME 2 GM/NS 50 ML 2 GM/50 ML BAG IVPB (06:13)
[2024-11-28] MEDS: ACYCLOVIR 400 MG TABLET PO (06:13)
[2024-11-28] MEDS: UMECLIDINIUM/VILANTEROL 62.5-25 MCG ELLIPTA 1 PUFF INHALATION (07:36)
[2024-11-28 07:38] VITALS: O2SAT 99
[2024-11-28 07:56] LABS: Estimated CRCL calculation 88 ml/min; Estimated Glomerular Filt Rate > 60
[2024-11-28 08:19] LABS: Hematocrit 30.7 % (42.0-52.0); Hemoglobin 10.1 g/dL (14.0-18.0); Mean Corpuscular HGB Conc 32.9 g/dl (32-36); Mean Corpuscular Hemoglobin 35.6 pg (26-34); Mean Corpuscular Volume 108.1 fl (80-100); Mean Platelet Volume 10.4 fl (7.4-10.4); Platelet Count Result 384 k/mm3 (150-375); Red Blood Count 2.84 M/mm3 (4.6-6.20); Red Cell Distribution Width 14.3 % (11.5-14.5); White Blood Count 7.2 K/mm3 (4.5-10.0)
[2024-11-28 08:26] LABS: Glucose Point of Care 180 mg/dl (65-105)
[2024-11-28 09:08] LABS: Alanine Aminotransferase 33 U/L (6-50); Albumin Level 2.7 g/dL (3.5-5.1); Alkaline Phosphatase 89 U/L (38-126); Anion Gap 1 mmol/L (4-12); Aspartate Amino Transferase 87 U/L (17-59); Bilirubin,Total 0.3 mg/dL (0.2-1.3); Blood Urea Nitrogen 24 mg/dL (9-20); Calcium 8.1 mg/dL (8.4-10.2); Carbon Dioxide 34 mmol/L (22-30); Chloride 99 mmol/L (98-107); Estimated CRCL calculation 89 ml/min; Estimated Glomerular Filt Rate > 60; Glucose 208 mg/dL (65-110); Potassium 3.6 mmol/L (3.4-5.0); Sodium 134 mmol/L (137-145)
[2024-11-28] MEDS: CLOPIDOGREL BISULFATE 75 MG TABLET PO (09:26)
[2024-11-28] MEDS: ATORVASTATIN 40 MG TABLET PO (09:26)
[2024-11-28] MEDS: AZITHROMYCIN 250 MG TABLET 500 MG PO (09:26)
[2024-11-28] MEDS: PANTOPRAZOLE 40 MG TABLET PO (09:26)
[2024-11-28] MEDS: CLOFAZIMINE 2 EACH PO (09:27)
[2024-11-28] MEDS: ETHAMBUTOL HCL 1200 MG PO (09:27)
[2024-11-28] MEDS: ISAVUCONAZONIUM 186 MG 2 EACH PO (09:27)
[2024-11-28 09:30] VITALS: O2SAT 99
[2024-11-28 11:45] LABS: Glucose Point of Care 164 mg/dl (65-105)
--- NOTE | 2024-11-28 15:31 | PM.TDS ---
Transfer Discharge Sum: Prov Provider Date of admission: 11/22/24 14:45 Primary care physician: Kirt Lindsay DO Admitting clinician: Alex Sutherland MD Consults: 11/21/24 Consult to Physician Routine Comment: Consulting Provider: Thuy Daugherty oil gas and pipe tester/MD group to consult: cardiology Reason for consultation: elevated troponin Has provider been notified: Yes Consult to Physician Routine Comment: Consulting Provider: Cruz Del Valle oil gas and pipe tester/MD group to consult: Pulmonology Reason for consultation: Pneumonia, COPD exacerbation Has provider been notified: Yes DS: Admitting Diagnosis Discharge Date 11/28/24 Admitting Diagnosis Shortness of breath DS: Discharge Diagnosis Discharge Diagnosis (1) Acute and chronic respiratory failure with hypoxia: Code(s): J96.21 - Acute and chronic respiratory failure with hypoxia Status: Acute (2) Pneumonia: Qualifiers: Laterality: bilateral Lung location: lower lobe of lung Pneumonia type: due to unspecified organism Qualified Code(s): J18.9 - Pneumonia, unspecified organism Code(s): J18.9 - Pneumonia, unspecified organism Status: Acute (3) COPD (chronic obstructive pulmonary disease): Qualifiers: COPD type: COPD with acute exacerbation Qualified Code(s): J44.1 - Chronic obstructive pulmonary disease with (acute) exacerbation Code(s): J44.9 - Chronic obstructive pulmonary disease, unspecified Status: Acute (4) Elevated troponin: Code(s): R79.89 - Other specified abnormal findings of blood chemistry Status: Acute (5) Chronic uttto-gjhngb-fitk disease: Code(s): D89.811 - Chronic xozui-oqodnt-jjlz disease Status: Acute (6) Insulin dependent type 2 diabetes mellitus: Code(s): E11.9 - Type 2 diabetes mellitus without complications; Z79.4 - superintendent container 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) use of insulin Status: Acute (7) Mycobacterium avium complex: Code(s): A31.0 - Pulmonary mycobacterial infection Status: Acute Transfer Discharge Sum: Med Medications Active and Home Medications: Home Medications rivaroxaban 20 mg tablet (Xarelto) 20 mg PO QAM 02/06/23 [History Confirmed 11/21/24] acyclovir 400 mg tablet 400 mg PO TID #90 tabs 01/28/24 [Rx Confirmed 11/21/24] clopidogrel 75 mg tablet 75 mg PO DAILY #90 tabs 01/28/24 [Rx Confirmed 11/21/24] montelukast 10 mg tablet (Singulair) 10 mg PO HS #30 tabs 01/28/24 [Rx Confirmed 11/21/24] mycophenolate mofetil 500 mg tablet 1,000 mg (2 x 500 mg) PO Q12H #10 tabs 01/28/24 [Rx Confirmed 11/21/24] tacrolimus 0.5 mg capsule, immediate-release (Prograf) 0.5 mg PO EVERY OTHER DAY #30 caps 01/28/24 [Rx Confirmed 11/21/24] albuterol sulfate 90 mcg/actuation aerosol inhaler 1 puff inhalation Q4-6H PRN Shortness Of Breath Or Wheezing 10/23/24 [History Confirmed 11/21/24] ondansetron 4 mg disintegrating tablet 4 mg PO Q8H PRN Nausea And Vomiting 10/23/24 [History Confirmed 11/21/24] pantoprazole 40 mg tablet,delayed release 40 mg PO Q12H 10/23/24 [History Confirmed 11/21/24] albuterol sulfate 2.5 mg/3 mL (0.083 %) solution for nebulization 2.5 mg (3 mL) inhalation Q6H PRN Shortness Of Breath #180 mL 11/13/24 [Rx Confirmed 11/21/24] clofazimine 50 mg capsule 100 mg PO DAILY 11/25/24 [History Confirmed 11/25/24] ethambutol 400 mg tablet 1,200 mg PO DAILY 11/25/24 [History Confirmed 11/25/24] isavuconazonium sulfate 186 mg capsule (Cresemba) 372 mg PO DAILY 11/25/24 [History Confirmed 11/25/24] Transfer Discharge Sum: Hosp Hospital Course Hospital course: Brady Jones is a 59 year old male # Acute and chronic respiratory failure with hypoxia: The patient presented to the emergency department for evaluation of worsening shortness of breath He was just discharged from [facility] a couple of days ago and he states they sent him home with abx. Records requested but no received. Hx of pseudomonas by prior sputum cultures (colonized?) CXR here showing mild new patchy nodular infiltrate in the left mid and lower lung. Cultures obtained and started on Vanco, Azithro and Rocephin. Rocephin changed to Cefepime on 11/21 WBC 13K and now trending down. MRSA nasal swab negative. BCx NGTD Sputum Cx negative. AFB pending Pulmonology consult and apprecaite their input CT chest showing focal consolidation of the posterior medial left upper lobe/left apex with new area of central cavitation. Stable 7 mm left upper lobe pulmonary nodule. Stable 8 mm right upper lobe pulmonary nodule. New area of groundglass opacity in the inferior left upper lobe/lingula. Stable focal nodular irregular consolidation at the extreme left lung base. There is probable moderate emphysematous change of the lungs. New cavitary lesion. Could be MAC but new since Oct 23 2024 so consider bacterial Patient is immnosuppressed. Tacrolimus and mycophenolate on hold. Pulmonary recommended transfer for ID evaluation and patient agreeable. He feels better and tolerating O2 wean. Pt followed by infectious [facility] at [facility]. And was eventually transferred to [facility] for further treatment. # Pneumonia: As above. Patient also undergoing treatment for MAC. Somewhat unclear if he has completed a course of treatment or not. BCx NGTD. Sputum Cx negative Patient with bacterial pneumonia and at this time, we are holding the mycophenolate and tacrolimas. He was on steroids for possible COPD exacerbation but these have been stopped. Continue Anoro Ellipta. Continue vancomycin cefepime and azithromycin Transferred to [facility] for further treatment # COPD (chronic obstructive pulmonary disease): Patient also with COPD exacerbation. Treated with Solu-Medrol and bronchodilators. Steroids stopped. # Elevated troponin: Hx of CAD s/p stent 100% occlusion mid RCA s/p drug-eluting stent, left coronary system with oenl-mi-ikeagdmy disease (12/30/22) Troponin elevated to 0.11 likely due to hypoxia and tachycardia EKG showing sinus tachycardia (114), nonspecific T wave changes. Cardiology consulted. Continue Plavix. Was not on a statin so added # Chronic apckd-pncole-vopv disease: Delete As above. Holding anti-rejection meds with active infection Resume as soon as possible. Continue Acyclovir. # Insulin dependent type 2 diabetes mellitus: A1c 6.2. Glucose remains elevated related to the steroids. Continue AccuCheks covering with sliding scale. Hypoglycemia protocol available as needed. 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 Well-nourished. - EYES: EOMI. Anicteric. - HENT: Moist mucous membranes. - LUNGS: Coarse breath sound to auscultation bilaterally, no wheezing, rhonchi, or rales. - CARDIOVASCULAR: Regular rate and rhythm. No murmur. No JVD. - ABDOMEN: Soft, non-tender and non-distended. No palpable masses. - EXTREMITIES: No edema. Peripheral pulses 2+. Non-tender. - NEUROLOGIC: No focal neurological deficits. CN II-XII grossly intact. - PSYCHIATRIC: Awake, Alert and oriented x 3. Appropriate mood and affect. - SKIN: No rashes or lesions. Warm. - LYMPH: No cervical lymphadenopathy. DS: Data Data Completed and Pending Completed studies during hospitalization: Exam Type: CA echo doppler color flow Study Info Indications - elevated troponin Complete two-dimensional, color flow and Doppler transthoracic echocardiogram is performed. Summary 1. Complete two-dimensional, color flow and Doppler transthoracic echocardiogram is performed. 2. LV function appears to be 40-45% with inferior akinesis. This is similar to the EF in 2022. 3. RV function appears to be normal. 4. Limited study due to only the subcostal views being seen. 5. Small pericardial effusion. 6. Mild MR. 7. Both left and right atrium appeared grossly normal in size. Left Ventricle This is a limited study as the views were from the subcostal region only. There appears to be inferior akinesis with overall EF about 40-45%. Left ventricular systolic function is mildly reduced, estimated at 45-50%. Right Ventricle Right ventricular chamber dimension is normal. Right ventricular systolic function is normal. Left Atria Appears to be normal size. Right Atria Appears to be normal size. Aortic Valve Aortic valve is not well visualized. Mitral Valve There appears to be mild mitral regurgitation. Tricuspid Valve Mild TR with peak PA pressure of approximately 30. Pericardium/Pleural Small pericardial effusion. Aorta Probably normal sinus. Labs on day of discharge: Labs from last 24 hours 11/28/24 11/28/24 11/28/24 11:34 08:10 07:16 WBC RBC Hgb Hct MCV MCH MCHC RDW Plt Count MPV Sodium Potassium Chloride Carbon Dioxide Anion Gap BUN Creatinine 0.68 L Estim Creat Clear Calc 88 Estimated GFR > 60 Glucose POC Capillary Glucose 164 H 180 H Calcium Total Bilirubin AST ALT Alkaline Phosphatase Total Protein Albumin Nasal RSV Type A (PCR) Nasal RSV Type B (PCR) Vancomycin Trough Chlamy pneumoniae PCR Adenovirus DNA Human Bocavirus (KESHAV) Coronavirus Type OC43 Coronavirus Type HKU1 Coronavirus Type 229E Coronavirus Type NL63 Human Metapneumovir PCR Influenza A (PCR) Influenza A (H1) RNA Influenza A (H3) PCR M. pneumoniae DNA Parainfluenza PCR Parainfluenza 2 (PCR) Parainfluenza 3 RNA (PCR) Parainfluenza 4 (PCR) Rhino/Enterovirus (KESHAV) SARS-CoV-2 RNA (RT-PCR) Urine Pneumococcal Ag Influenza Type B (PCR) Misc Test Comment 11/28/24 11/27/24 11/27/24 07:13 21:50 19:09 WBC 7.2 RBC 2.84 L Hgb 10.1 L Hct 30.7 L MCV 108.1 H MCH 35.6 H MCHC 32.9 RDW 14.3 Plt Count 384 H MPV 10.4 Sodium 134 L Potassium 3.6 Chloride 99 Carbon Dioxide 34 H Anion Gap 1 L BUN 24 H Creatinine 0.67 L Estim Creat Clear Calc 89 Estimated GFR > 60 Glucose 208 H POC Capillary Glucose 197 H Calcium 8.1 L Total Bilirubin 0.3 AST 87 H ALT 33 Alkaline Phosphatase 89 Total Protein 6.0 L Albumin 2.7 L Nasal RSV Type A (PCR) Nasal RSV Type B (PCR) Vancomycin Trough 12.4 Chlamy pneumoniae PCR Adenovirus DNA Human Bocavirus (KESHAV) Coronavirus Type OC43 Coronavirus Type HKU1 Coronavirus Type 229E Coronavirus Type NL63 Human Metapneumovir PCR Influenza A (PCR) Influenza A (H1) RNA Influenza A (H3) PCR M. pneumoniae DNA Parainfluenza PCR Parainfluenza 2 (PCR) Parainfluenza 3 RNA (PCR) Parainfluenza 4 (PCR) Rhino/Enterovirus (KESHAV) SARS-CoV-2 RNA (RT-PCR) Urine Pneumococcal Ag Influenza Type B (PCR) Misc Test Comment 11/27/24 11/23/24 11/21/24 16:36 12:56 18:00 WBC RBC Hgb Hct MCV MCH MCHC RDW Plt Count MPV Sodium Potassium Chloride Carbon Dioxide Anion Gap BUN Creatinine Estim Creat Clear Calc Estimated GFR Glucose POC Capillary Glucose 87 Calcium Total Bilirubin AST ALT Alkaline Phosphatase Total Protein Albumin Nasal RSV Type A (PCR) Not detected Nasal RSV Type B (PCR) Not detected Vancomycin Trough Chlamy pneumoniae PCR Not detected Adenovirus DNA Not detected Human Bocavirus (KESHAV) Not detected Coronavirus Type OC43 Not detected Coronavirus Type HKU1 Not detected Coronavirus Type 229E Not detected Coronavirus Type NL63 Not detected Human Metapneumovir PCR Not detected Influenza A (PCR) Not detected Influenza A (H1) RNA Not detected Influenza A (H3) PCR Not detected M. pneumoniae DNA Not detected Parainfluenza PCR Not detected Parainfluenza 2 (PCR) Not detected Parainfluenza 3 RNA (PCR) Not detected Parainfluenza 4 (PCR) Not detected Rhino/Enterovirus (KESHAV) Not detected SARS-CoV-2 RNA (RT-PCR) Not detected Urine Pneumococcal Ag Not detected Influenza Type B (PCR) Not detected Misc Test Comment see note Preliminary micro results at discharge 11/23/24 08:37 Acid Fast Bacilli Culture - Preliminary Sputum Imaging Radiologist's impression: ITS Impressions Chest X-Ray 11/21/24 07:07 IMPRESSION: Mild new patchy nodular infiltrate in the left mid and lower lung zones, suggesting pneumonia Severe COPD Chronic severe right upper lobe atelectasis and scarring, possible cavitation Chest CT 11/24/24 05:21 Impression: New area of groundglass opacity in the inferior left upper lobe/lingula, compatible with infectious/inflammatory process. Additional pulmonary findings are otherwise essentially unchanged, including right upper lobe consolidation with areas of cavitary change as well as scattered additional bilateral areas of focal consolidation and nodularity. Moderate emphysema. Additional Comments Additional comments: Transfer condition stable
[2024-12-01 17:52] LABS: Mycoplasma IgM Antibody Titer. 305 U/mL
[2024-12-03 02:49] LABS: Legionella pneumophila Ag Ur. NOT DETECTED
== END 2024-11-28 12:00 | disposition short-term general hospital (02) | DRG 194 ==
LOC: ANHED 09:11 → ANHIMU 12:21 → ANH3MEDSUR 11-25 16:20
PROVIDERS: Emergency Medicine; Internal Medicine Pulmonary Disease; Physician Assistant; Admitting Provider Internal Medicine; Emergency Provider Emergency Medicine; PCP Internal Medicine; Visit Provider Internal Medicine
DX: J18.9 Pneumonia, unspecified organism (principal); C92.00 Acute myeloblastic leukemia, not having achieved remission; J44.1 Chronic obstructive pulmonary disease with (acute) exacerbation; J44.0 Chronic obstructive pulmonary disease with (acute) lower respiratory infection; D89.811 Chronic graft-versus-host disease; D84.821 Immunodeficiency due to drugs; Z94.81 Bone marrow transplant status; A31.0 Pulmonary mycobacterial infection; I25.10 Atherosclerotic heart disease of native coronary artery without angina pectoris; E11.9 Type 2 diabetes mellitus without complications; E11.42 Type 2 diabetes mellitus with diabetic polyneuropathy; E78.5 Hyperlipidemia, unspecified; R79.89 Other specified abnormal findings of blood chemistry; N48.6 Induration penis plastica; M85.80 Other specified disorders of bone density and structure, unspecified site; F41.9 Anxiety disorder, unspecified; F32.A Depression, unspecified; F17.210 Nicotine dependence, cigarettes, uncomplicated; Z20.822 Contact with and (suspected) exposure to COVID-19; I25.2 Old myocardial infarction; Z99.81 Dependence on supplemental oxygen; Z79.01 Long term (current) use of 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; Z86.711 Personal history of pulmonary embolism; Z86.718 Personal history of other venous thrombosis and embolism; Z95.5 Presence of coronary angioplasty implant and graft
CPT/HCPCS: 36415; 36600; 71045; 71250; 80048; 80053; 80202; 81003; 82104; 82565; 82805; 82948; 83036; 83605; 83690; 83735; 83880; 84100; 84145; 84484; 85018; 85025; 85027; 85610; 85730; 86140; 86738; 87015; 87040; 87070; 87116; 87205; 87206; 87449; 87633; 87637; 87641; 87899; 93005; 93306; 94002; 94640; 96365; 96375; 96376; 99285; A9270; G0378; J0456; J0692; J0696; J1815; J1940; J2919; J3370; J7517

== ENCOUNTER 2024-12-15 16:02 | Emergency (ER) | payer MEDICARE, SELFPAY ==
[2024-12-15] VITALS (23 sets, daily range): BP systolic 89–150; BP diastolic 56–93; PULSE 90–114; RESP 13–151; TEMP 36.3–36.4; O2SAT 94–100
--- NOTE | ~2024-12-15 | XR_ITS ---
EXAMINATION: XR chest 1V portable DATE: 12/15/2024 21:11 INDICATION: Pneumonia. TECHNIQUE: A single frontal view of the chest was obtained on 2 radiographs. COMPARISON: Chest single view 11/21/2024, chest CT 11/23/24 FINDINGS: There are lucencies in the lungs, consistent with emphysema. There are airspace opacities w ith volume loss and cavitation in right upper lobe. There are scattered airspace opacities in the anne gs bilaterally. No pleural effusion or pneumothorax. The heart size is normal. IMPRESSION: 1. Stable chronic pneumonia. 2. Emphysema. Reviewed, dictated and finalized at location A. [facility]
--- NOTE | ~2024-12-15 | CT_ITS ---
EXAMINATION: CT abdomen pelvis w con DATE: 12/15/2024 19:50 INDICATION: Central abdominal pain. TECHNIQUE: Computed tomography (CT) of the abdomen and pelvis was performed with 100 mL Omnipaque 350 intravenous contrast. Automated exposure control and iterative reconstruction technique were employe d. The dose-length product was 225.45 mGy-cm. COMPARISON: CT abdomen and pelvis 12/23/2023, chest CT 11/23/24 FINDINGS: The visualized portions of lung bases demonstrate emphysema. There are scattered nodules in the lungs bilaterally measuring up to 14 mm on the right. No pleural effusion. The heart size is nor mal. There are coronary artery calcifications. No pericardial effusion. The liver is normal. There ar e changes of cholecystectomy. The spleen is small. There is chronic hypodensity of the tail of the pa ncreas, likely chronic pancreatitis. The adrenal glands are normal. There is cortical thinning of the kidneys. The bladder is distended. There is diverticulosis of the colon without evidence of divertic ulitis. There are no dilated loops of bowel. The appendix is normal. There is wall thickening of the esophagus. There are no pathologically enlarged lymph nodes. There is no free intraperitoneal fluid. There is severe lower lumbar spondylosis. IMPRESSION: 1. Pulmonary nodules with worsening on the left from 11/23/2024, consistent with pneumonia. 2. Emphysema. 3. Wall thickening of the esophagus, likely esophagitis. Reviewed, dictated and finalized at location [facility]. [facility]
--- OUTSIDE RECORDS SUMMARY | 2024-12-15 16:50 | XMS_ITS | Encounter Summary ---
Author Organization [facility] Address [address] [facility] [address] [place] [address] Phone Care Team Providers Care Sales Executive Name Role Phone Josué Del Valle MD PhD Unavailable [phone] Kirt Lindsay DO Primary Care Provider [phone] Cal Carranza DO Unavailable [phone] Halie Khan MD Unavailable [phone] Wilfred Kinsey MD Unavailable Encounter Details Date Type Department Care Team (Late st Contact Info) Description 08/12/2024 Telephone [facility] Scheduling [address] [place] [address] Irina Conrad Social History Tobacco Use Types Packs/Day Years Used Date Smoking Tobacco: Some Days Cigarettes 0.5 40.5 Started: 1985 Smokeless Tobacco: Never Comments:pt states tried to quit; smoking 5 cigs/wk [facility] Utilities Answer Date Recorded In the past [...] week 07/24/2024 How often do you attend temple or confucianism serv ices? Never 07/24/2024 Do you belong [...] [place] [facility] ([facility] No 07/24/2024 Personal Safety Answer Date Recorded Have you ever been in or are you currently in a harmful physical or emotional relationship or is someone making you feel afraid or unsafe? 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 documented as of this encounter Care Teams Sales Executive Relationship Specialty Start Date End Date Kirt Lindsay DO PCP - General Internal Medicine 02/02/21 Josué Del Valle MD PhD Medical Oncologist/Script Writer Medical Oncology 08/26/19 Cal Carranza DO [address] [address] Radiological Technologist Internal Medicine 06/12/23 Halie Khan MD [address] [facility] [address] [place] [address] Bilingual Executive Assistant Critical Care Med 06/12/23 Wilfred Kinsey MD [address] [facility] [address] [id number] Consulting Physician Gastroenterology 03/02/24 documented as of this encounter
--- OUTSIDE RECORDS SUMMARY | 2024-12-15 16:50 | XMS_ITS | Encounter Summary ---
Author Organization [facility] Address [address] [facility] [address] [place] [address] Phone Care Team Providers Care Shank Turner Name Role Phone Kirt Lindsay DO Primary Care Provider [phone] Josué Del Valle MD PhD Unavailable [phone] Halie Khan MD Primary Care Provider [phone] Kirt Lindsay DO Primary Care Provider [phone] Tay Charlton MD Unavailable [phone] Halie Khan MD Unavailable [phone] StarksAnt goldman MD Unavailable [phone] Dillon Calreed Dorado DO Unavailable [phone] Halie Khan MD Unavailable [phone] Wilfred Kinsey MD Unavailable Encounter Details Date Type Department Care Team (Latest Contact Info) Description 11/27/2017 Orders Only [facility] CONVERSION Scanning, Provider Social History Tobacco Use Types Packs/Day Years Used Date Smoking Tobacco: Never Assessed Sex and Gender Information Value Date Recorded Sex Assigned at Not on file 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 Gender Identity Not on file Sexual Orientation Not on file documented as of this encounter Plan of Treatment Not on file documented as of this encounter Procedures Procedure Name Priority Date/Time Associated Diagnosis Comments VASCULAR LABORATORY REPORT 11/27/2017 4:04 PM BIBLICAL STUDIES PROFESSOR VASCULAR LABORATORY REPORT 11/27/2017 4:04 PM BIBLICAL STUDIES PROFESSOR documented in this encounter Results * VASCULAR LABORATORY REPORT (11/27/2017 4:04 PM BIBLICAL STUDIES PROFESSOR) Anatomical Region Laterality Modality Ultrasound us Provider Scanning CV VASCULAR PROCEDURES Final R esult * VASCULAR LABORATORY REPORT (11/27/2017 4:04 PM BIBLICAL STUDIES PROFESSOR) Anatomical Region Laterality Modality Ultrasound us Provider [...] documented as of this encounter Care Teams Shank Turner Relationship Specialty Start Date End Date Kirt Lindsay DO PCP - General 05/02/17 11/22/20 Halie Khan MD [address] [address] PCP - General Critical Care Med 11/23/20 02/01/21 Kirt Lindsay DO PCP - General Internal Medicine 02/02/21 Josué Del Valle MD PhD Medical Oncologist/Pressure Control Supervisor Medical Oncology 08/26/19 Tay Charlton MD [address] [address] Consulting Physician Gastroenterology 12/03/21 06/11/23 Halie Khan MD [address] [address] Consulting Physician Pulmonary Disease 12/12/21 3 Ant Starks MD [address] [facility] [address] [place] [address] Consulting Physician Transplant Hepatology 01/12/22 Cal Carranza DO [address] [facility] [address] [place] [address] Carpet Loom Fixer Internal Medicine 06/12/23 Halie Khan MD [address] [facility] [address] [place] [address] Supervisor Seaming Critical Care Med 06/12/23 Wilfred Kinsey MD [address] [address] Consulting Physician Gastroenterology 03/02/24 documented as of this encounter
--- OUTSIDE RECORDS SUMMARY | 2024-12-15 16:50 | XMS_ITS | CONTINUITY OF CARE DOCUMENT ---
Author Name arturo morris Address Unknown Organization [facility] Address [address] [place] [address] Phone [phone] Care Team Providers Care Exhibition Carver Name Role Phone Thuy Daugherty MD Unavailable [phone] Thuy Daugherty MD Unavailable [phone] INSURANCE PROVIDERS Payer name Policy type / Coverage type [employer] party ID [facility] DUAL COMPLETE (HMO-POS) [facility] [id number]
--- OUTSIDE RECORDS SUMMARY | 2024-12-15 16:51 | XMS_ITS ---
Author Organization [facility] Address [address] [place] [address] Care Team Providers Care Customs Agent Name Role Phone Josué Del Valle MD PhD Unavailable [phone] Kirt Lindsay DO Primary Care Provider [phone] Cal Carranza DO Unavailable [phone] Halie Khan MD Unavailable [phone] Wilfred Kinsey MD Unavailable Active Problems Patient Care Coordination No te Formatting of this note is d ifferent from the original. 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 HLA typing/IDMs Insurance Approvals/Issues Discharge Planning Anticipated Discharge Date 08/03 Patient Education Completed Issue to be Resolved Before Discharge Discharge Disposition Home Requests Sent to Case Management and/or Medical Assistants CM: for IV amicasin Post-Discharge Follow-Up Living Situation/Distance from [place], [place] (local) Caregiver Lab/Transfusion Frequency Phone: Fax: Venous Access & Care peripheral Local Oncologist Contact Phone: Fax: Post-Discharge Office Visit (H30) JFD 12/09 w/ BEAN SORTER Jmae Miscellaneous Notes: Problem Noted Date Diagnosed Date Severe protein-calorie malnutrition (CMS/HCC) Assessment & Plan (11/30/2024 8:14 AM WHARF OPERATOR): Diagnosed by RD per ASPEN criteria. Malnutrition can delay patient's recover from his infection. 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 On triple regimen recommended by ID. -See PNA plan for details GVHD (graft versus host disease) 11/16/2024 Assessment & Plan (11/17/2024 12:20 PM WHARF OPERATOR): Involving the eyes and the lungs - MMF 1 g b.i.d., tacro 0.5 every other day, and he is on prednisone only when he has wheezing or sob- 20mg a day -Tac level M/TH. CAD (coronary artery disease) 11/16/2024 Assessment & Plan (11/28/2024 1:53 PM WHARF OPERATOR): Hx of STEMI s/p PCI to RCA 2022 -Continue home plavix 75 mg daily, atorvastatin Assessment & Plan (11/18/2024 10:42 AM WHARF OPERATOR): S/p PCI to RCA in 2022 -cont [...] for 4d of worsening SOB. Presented to [facility] ED 07/19 for SOB and treated for COPD exac with pred course. Presented to [facility] on 07/21 for worsening SOB. CXR and [...] 06/19/2024 Assessment & Plan (11/17/2024 12:22 PM WHARF OPERATOR): Follows with ID; last seen in clinic [...] now with expectation of submitting this to [place] [facility] on ~07/13. Beginning empiric therapy therapy [...] 06/16/2024 Assessment & Plan (11/17/2024 12:22 PM WHARF OPERATOR): RD following Assessment & Plan (07/24/2024 1:02 [...] with Pulmonary emphysema 06/15/2024 Assessment & Plan (11/28/2024 4:11 PM WHARF OPERATOR): Last PFT 08/15/23: FEV1 35% predicted. Residual volume 6.77 L. 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 EGD 11/16 showed food in middle 3rd of esophagus, stasis esophagitis in the mid esophagus. 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 -Continue carafate 1g bid, PPI bid. -Repeat EGD 3 months from 11/17 Assessment & Plan (11/18/2024 10:43 AM WHARF OPERATOR): After eating chicken/spaghetti on 11/14 felt pressure/stuck [...] try to schedule outpt with Dr. Centeno. Community acquired pneumonia 02/13/2022 Assessment & Plan (12/01/2024 12:17 PM WHARF OPERATOR): Patient reports symptom of chest tightness. CT at OSH showed new infiltrate at left upper lobe. Has know cavitary lung lesion from July. Previously on amikacin but was held due to elevated creatinine. 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 May have some component of COPD exacerbation. Received solu medrol 20 q6h 11/22-11/24 and then discontinued by OSH pulmonology due to no wheezing. OSH work-up: -CXR 11/21: mild new patchy nodular infiltrate in the left mid and lower lung zones, severe COPD, chronic severe right upper lobe atelectasis and scarring, possible cavitation -CT 11/22: new area of GGO in the inferior left upper lobe/lingula. Stable right apical consolidation with cavitary change compared to 10/23/24 Plan: -S/p vancomycin (11/22-11/29, 7 day therapy). completed cefepime (11/21-11/30), completed a 10 day therapy. -Continue home azithromycin 500 mg daily, ethanbutol 1.2 g daily, clofazimine 100 mg daily. Notified ID that patient missed his last appointment. ID will schedule a follow up for mycobacterium infection COPD (chronic obstructive pulmonary disease) Assessment & Plan (11/17/2024 12:17 PM WHARF OPERATOR): He has Ventolin inhaler, Trelegy inhaler, albuterol inhaler, and Singulair 10 a day. On 3L oxygen at home Biliary sludge 12/20/2021 Overview (12/20/2021): Added automatically from request for surgery [id number] Other osteoporosis without current pathological fracture 11/23/2021 Encounter for removal of biliary stent Overview (10/03/2021): Added automatically from request for surgery [id number] Elevated LFTs 09/08/2021 Assessment & Plan (09/10/2021 [...] (09/07/2021): Added automatically from request for surgery [id number] Assessment & Plan (07/25/2024 12:01 PM CDT): - Recent hx pancreatitis admission without obvious source. Pain was slowly recurring in the last few days. Lipase was WNL at LFTs wnl at OSH and wnl on repeat here. Improving. - Pain control. - Tolerating mechanical soft diet Upper GI bleed 09/07/2021 Overview (09/07/2021): Added automatically from request for surgery [id number] Assessment & Plan (09/10/2021 9:18 AM CDT): [...] (03/30/2021): Added automatically from request for surgery [id number] Assessment & Plan (08/09/2021 10:27 AM CDT): [...] (06/16-06/20) Assessment & Plan (11/26/2019 10:45 AM WHARF OPERATOR): POA. Possibly community-acquired and/or 2/[address] Strep pneumoniae pos sputum cx. See SOB problem. Shortness of breath 11/20/2019 Assessment & Plan (11/27/2019 12:14 PM WHARF OPERATOR): Concern for poss GVHD and/or poss COPD [...] Walking O2 assessment CHF (congestive heart failure) ([facility]) 020 Assessment & Plan (11/28/2024 3:54 PM WHARF OPERATOR): Echo 11/24 at OSH: LVEF 40-45% wit hinferior akinesis, similar to EF in 2022, mild MR -Continue home metoprolol 12.5 mg daily, jardiance 10 mg daily Assessment & Plan (11/16/2024 3:06 AM WHARF OPERATOR): Euvolemic on exam currently; no new SOB - continue metop, jardiance Assessment & Plan (07/26/2024 11:49 AM CDT): TTE 03/2024 with LVEF 50-55%. Pro BNP at OSH >30k. Last adm here 1012. Appears euvolemic. S/p Lasix at OSH and [place] [address] - repeat TTE 07/24: LVEF 30%, moderate [...] 1012 Assessment & Plan (11/28/2019 10:27 AM WHARF OPERATOR): Closely monitor blood sugar to avoid hypoglycemia Assessment & Plan (11/27/2019 1:35 PM WHARF OPERATOR): Closely monitor blood sugar to avoid hypoglycemia Assessment & Plan (11/26/2019 5:32 PM WHARF OPERATOR): Closely monitor blood sugar to avoid hypoglycemia Assessment & Plan (11/25/2019 4:51 PM WHARF OPERATOR): Closely monitor blood sugar to avoid hypoglycemia Assessment & Plan (11/24/2019 4:57 PM WHARF OPERATOR): Closely monitor blood sugar to avoid hypoglycemia Assessment & Plan (11/23/2019 2:01 PM WHARF OPERATOR): Closely monitor blood sugar to avoid hypoglycemia Assessment & Plan (11/24/2019 10:51 AM WHARF OPERATOR): With diastolic dysfunction, new diagnosis. -Continue Lasix. [...] TID Assessment & Plan (11/20/2019 4:17 PM WHARF OPERATOR): Continue gabapentin Tobacco abuse 11/20/2019 Assessment & Plan (06/16/2024 6:44 PM CDT): Encourage cessation Assessment & Plan (11/20/2019 4:18 PM WHARF OPERATOR): Nicotine patch Depressed mood 11/24/2018 Assessment & Plan (11/24/2018 4:56 PM WHARF OPERATOR): With feelings of depressed mood prior to [...] recommended pharm therapy. DVT (deep venous thrombosis) ([facility]) 9 Assessment & Plan (11/28/2024 1:53 PM WHARF OPERATOR): Hx of PE in 2012, DVT IJ 2017 -Continue home xarelto 20 mg dialy Assessment & Plan (11/18/2024 10:42 AM WHARF OPERATOR): DVT lower ext 2012, DVT IJ 2017, [...] Xeralto Assessment & Plan (11/20/2019 3:57 PM WHARF OPERATOR): Continue xarelto Assessment & Plan (11/23/2018 11:32 AM WHARF OPERATOR): Cont Xarelto. Sinusitis 11/22/2018 Assessment & Plan (11/24/2018 4:48 PM WHARF OPERATOR): Chronic issue over last 2 months. -With [...] shows no PE-->no pneumonia. COPD with exacerbation ([facility]) 11/22/2018 Assessment & Plan (07/24/2024 [...] exertion Assessment & Plan (11/20/2019 4:16 PM WHARF OPERATOR): Continue inhalers Assessment & Plan (11/23/2018 11:29 AM WHARF OPERATOR): Continues to smoke >1 ppd. -Cont steroids at current dose. -Cont Advair diskus BID, cont albuterol inh QID. -Encourage smoking cessation. Cont nicotine patch. Cough 10/17/2018 Pure hypercholesterolemia 08/04/2018 Assessment & Plan (02/12/2022 6:02 AM CDT): - continue home dose atorvastatin 40 mg PO daily Assessment & Plan (01/15/2020 3:22 PM WHARF OPERATOR): -LDL at goal -will continue atorvastatin 40 mg daily Assessment & Plan (11/28/2019 10:27 AM WHARF OPERATOR): On atorvastatin 40 mg daily Assessment & Plan (11/27/2019 1:35 PM WHARF OPERATOR): On atorvastatin 40 mg daily Assessment & Plan (11/26/2019 5:32 PM WHARF OPERATOR): On atorvastatin 40 mg daily Assessment & Plan (11/25/2019 4:50 PM WHARF OPERATOR): On atorvastatin 40 mg daily Assessment & Plan (11/24/2019 4:57 PM WHARF OPERATOR): On atorvastatin 40 mg daily Assessment & Plan (11/23/2019 2:02 PM WHARF OPERATOR): On atorvastatin 40 mg daily Assessment & Plan (11/20/2019 4:18 PM WHARF OPERATOR): Continue statin Assessment & Plan (08/07/2019 1:35 [...] level Assessment & Plan (01/15/2020 3:22 PM WHARF OPERATOR): -vitamin D levels still low, unclear compliance -will continue current regimen Assessment & Plan (11/28/2019 10:29 AM WHARF OPERATOR): Last vitamin-D level low at 16. Continue vitamin D2 31125 units weekly and vitamin D3 2000 units daily Assessment & Plan (11/27/2019 1:35 PM WHARF OPERATOR): Last vitamin-D level low at 16. Continue vitamin D2 06920 units weekly and vitamin D3 2000 units daily Assessment & Plan (11/26/2019 5:32 PM WHARF OPERATOR): Last vitamin-D level low at 16. Continue vitamin D2 18453 units weekly and vitamin D3 2000 units daily Assessment & Plan (11/25/2019 4:51 PM WHARF OPERATOR): Last vitamin-D level low at 16. Continue vitamin D2 24511 units weekly and vitamin D3 2000 units daily Assessment & Plan (11/24/2019 4:57 PM WHARF OPERATOR): Last vitamin-D level low at 16. Continue vitamin D2 07845 units weekly and vitamin D3 2000 units daily Assessment & Plan (11/23/2019 2:02 PM WHARF OPERATOR): Last vitamin-D level low at 16. Continue vitamin D2 09193 units weekly and vitamin D3 2000 units [...] Allo SCT in 200805/06/2018 Assessment & Plan (11/28/2024 1:55 PM WHARF OPERATOR): S/p 7+3 HIDAC consolidation * 3, decitabine maintenance on CALG 00196. Had relapse s/p AMD/MEC. 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 -OI ppx: acv, crsemba Assessment & Plan (11/18/2024 10:41 AM WHARF OPERATOR): AML. S/p 7+3 and hidac consolidation x3, decitabine maintenance on CALG 32643 protocol. Had relapse s/p AMD/MEC. 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 -Last seen by Dr. Del Valle 06/12/23, in remission - acyclovir 400 t.i.d and antifungal ppx with voriconazole vs cresemba. Plan med rec w Pilot Manager today Assessment & Plan (06/17/2024 3:28 PM CDT): Follows Dr. Bauman, last seen in clinic on 06/09/2023 -AML diagnosed in 2008 s/p 7+3 and HiDAC consolidation x3 followed by Decitabine maintenance on the CALGB 11194 protocol. -Followed by Relapsed disease, status post [...] followed by Decitabine maintenance on the CALGB 84659 protocol. 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 voriconazole 200 b.i.d Assessment & Plan (09/10/2021 9:20 AM CDT): -S/p Busulfan and Cytoxan on the [facility] allogeneic study with his sister, 08/27 match; with day 0 on 11/09/2009??after induction with 7+3 and HiDAC consolidation x3.??Followed by??Decitabine maintenance on the CALGB 22757 protocol??and relapsed disease, status post AMD/MEC. -??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Most recent BMBx in our records is from 12/12/2017 with neg path and flow -OI prophylaxis, acyclovir Assessment & Plan (08/17/2021 3:45 PM CDT): S/p Busulfan and Cytoxan on the [facility] allogeneic study with his sister, 10/10 match; with day 0 on 11/09/2009 after induction with 7+3 and HiDAC consolidation x3. Followed by Decitabine maintenance on the CALGB 91589 protocol and relapsed disease, status post AMD/MEC. 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 -??Relapsed disease,??status post an allogeneic transplant with busulfan and Cytoxan on the [facility] allogeneic study with his sister, 10/10 match; with day 0 on 11/09/2009.?? - Currently in remission. Follows with Dr. Del Valle - On tacro, cellcept - OI ppx: Cont acyclovir. Added vori and bactrim (pt stated he was no longer taking at home). Assessment & Plan (11/23/2018 11:24 AM WHARF OPERATOR): -s/p sibling allo SCT on 11/09/09, now in CR with no e/o recurrence. 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 -Cont OI ppx with Bactrim, acyclovir. Type 2 diabetes mellitus 05/06/2018 Assessment & Plan (11/28/2024 1:56 PM WHARF OPERATOR): Last A1c 6.0 on 11/17/24 -SSI Assessment & Plan (11/18/2024 10:43 AM WHARF OPERATOR): On lantus/humalog at home (he reports taking [...] steroids Assessment & Plan (01/15/2020 3:24 PM WHARF OPERATOR): -poorly controlled, exacerbated by prednisone use -Hgb [...] goal Assessment & Plan (11/28/2019 10:29 AM WHARF OPERATOR): Patient has uncontrolled type 2 diabetes with [...] education. Assessment & Plan (11/27/2019 1:35 PM WHARF OPERATOR): Patient has uncontrolled type 2 diabetes with [...] education. Assessment & Plan (11/26/2019 5:32 PM WHARF OPERATOR): Patient has uncontrolled type 2 diabetes with [...] here. Assessment & Plan (11/25/2019 4:50 PM WHARF OPERATOR): Patient has uncontrolled type 2 diabetes with [...] here. Assessment & Plan (11/24/2019 4:57 PM WHARF OPERATOR): Patient has uncontrolled type 2 diabetes with [...] here. Assessment & Plan (11/23/2019 2:01 PM WHARF OPERATOR): Patient has uncontrolled type 2 diabetes with [...] here. Assessment & Plan (11/28/2019 9:33 AM WHARF OPERATOR): On basaglar 30 units AM and novolog [...] goal Assessment & Plan (11/24/2018 4:59 PM WHARF OPERATOR): -Poorly controlled, recently stopped checking glucose as [...] needles and sent e-script to [facility] in [place] on 11/24. Pt has script for glucose [...] takes acyclovir and voriconazole for medical ppx Lvqyc-nytpvk-yvwm disease 07/08/2012 Assessment & Plan (11/30/2024 3:25 PM WHARF OPERATOR): Probably missed 1-2 doses of tacrolimus and a week of cellcept dose at OSH due to medication on hold 12/20 active infection. Discussed with BMT and confirmed that ok to resume. Tacro level <0.1 on 11/30, confirmed with pharmacy no need to change tacro dose. -Continue tacrolimus 0.5 mg q48h and cellcept 1 g bid Assessment & Plan (06/18/2024 12:56 PM CDT): [...] daily Assessment & Plan (11/28/2019 10:27 AM WHARF OPERATOR): Prednisone decreased to 20 mg daily Assessment & Plan (11/27/2019 1:32 PM WHARF OPERATOR): Prednisone decreased to 20 mg daily Assessment & Plan (11/26/2019 5:31 PM WHARF OPERATOR): Plan to taper prednisone to 20 mg daily Assessment & Plan (11/25/2019 4:49 PM WHARF OPERATOR): He is on prednisone 20 mg BID Assessment & Plan (11/24/2019 4:54 PM WHARF OPERATOR): He is on prednisone 20 mg BID Assessment & Plan (11/23/2019 2:01 PM WHARF OPERATOR): Starting on prednisone 20 twice daily today Assessment & Plan (11/27/2019 12:13 PM WHARF OPERATOR): Continue cellcept 1 g BID and tacrolimus??0.5 [...] 3x/weekly Assessment & Plan (11/24/2018 11:50 AM WHARF OPERATOR): cGVHD of eyes, mouth, 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 -Cont pred 10 mg BID, MMF 1g BID, tacrolimus 0.5 mg QOD. -F/u tac trough (due 1/8 AM). Osteopenia 11/27/2011 Assessment & Plan (01/15/2020 3:23 PM WHARF OPERATOR): -DEXA scan done 07/2019 revealed stable BMD -will continue vitamin D supplementation and dietary calcium Assessment & Plan (11/20/2019 3:55 PM WHARF OPERATOR): Continue home vitamin D and dietary calcium [...] treatments are documented for this patient in [facility]. Treatments may have been administered in another [...] Date Resolved Date Beltran catheter in place 07/24/2024 090 05/2024 Assessment & Plan (07/24/2024 1:14 PM CDT): Noted beltran catheter in place. Unsure of reason of beltran placement overnight. Without urinary retention or incomplete emptying. No beltran cath placement order found. -remove beltran today with voiding trial
--- OUTSIDE RECORDS SUMMARY | 2024-12-15 16:51 | XMS_ITS | Clinical Summary ---
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 [place] [address] * Uric acid (11/30/2024 4:13 AM HIDE SALTER) Uric acid 3.4 3.0 - 8.0 mg/dL Blood 11/30/2024 4:13 AM HIDE SALTER 11/30/2024 4:44 AM HIDE SALTER Narrative [facility] - 11/30/2024 5:14 AM HIDE SALTER Saturday and only. Morning draw. . [facility] LAB BLOOD ORDERABLES Final Resul t Performing Organization Address [facility] de Phone Number [facility] [address] * Phosphorus (11/30/2024 4:13 AM HIDE SALTER) Phosphorus, pl 2.6 2.3 - 4.5 mg/dL Blood 11/30/2024 4:13 AM HIDE SALTER 11/30/2024 4:44 AM HIDE SALTER [facility] LAB BLOOD ORDERABLES Final Resul t Performing Organization Address [facility] de Phone Number [facility] Department [place] [address] * Magnesium (11/30/2024 4:13 AM HIDE SALTER) Magnesium 2.0 1.4 - 2.5 mg/dL Blood 11/30/2024 4:13 AM HIDE SALTER 11/30/2024 4:44 AM HIDE SALTER [facility] LAB BLOOD ORDERABLES Final Resul t Performing Organization Address [facility] [place] [address] * Lactate dehydrogenase (LD) (11/30/2024 4:13 AM HIDE SALTER) Lactate dehydrogenase (LDH) 239 100 - 250 Units/L Blood 11/30/2024 4:13 AM HIDE SALTER 11/30/2024 4:44 AM HIDE SALTER Narrative [facility] - 11/30/2024 5:14 AM HIDE SALTER Saturday and only. Morning draw. Juan A Chanel DO LAB BLOOD ORDERABLES Final Resul t [facility] Department [place] [address] * (ABNORMAL) Comprehensive metabolic panel (11/30/2024 4:13 AM HIDE SALTER) Sodium 137 135 - 145 mmol/L Potassium, pl 4.4 3.3 - 4.9 mmol/L [facility] Chloride 100 97 - 110 mmol/L [facility] CO2 31 22 - 32 mmol/L [facility] Anion gap 6 2 - 15 mmol/L [facility] BUN 26(H) 6 - 25 mg/dL [facility] Creatinine 1.10 0.80 - 1.30 mg/dL [facility] Glucose 154 70 - 199 mg/dL [facility] [...] 2022. Calcium 9.0 8.5 - 10.3 mg/dL [facility] Bilirubin, total 0.2 0.1 - 1.2 mg/dL [facility] Protein, pl 6.0(L) 6.5 - 8.5 g/dL [facility] Albumin 3.1(L) 3.5 - 5.0 g/dL [facility] Alk phos 132(H) 40 - 130 Units/L [facility] ALT 28 7 - 55 Units/L [facility] AST 29 10 - 50 Units/L [facility] Blood 11/30/2024 4:13 AM HIDE SALTER 11/30/2024 4:44 AM HIDE SALTER Narrative [facility] - 11/30/2024 5:14 AM HIDE SALTER Saturday and only. Morning draw. Juan A Chanel DO LAB BLOOD ORDERABLES Final Resul t Performing Organization Address [facility] Phone Number [facility] [place] [address] * POCT glucose (11/29/2024 9:06 PM HIDE SALTER) Glucose, POC 178 70 - 199 mg/dL Blood 11/29/2024 9:06 PM HIDE SALTER 11/29/2024 9:06 PM HIDE SALTER us Josué Del Valle MD PhD LAB POCT ORDERABLES - DE VICE Final Result Performing Organization Address [facility] Phone Number [facility] [place] [address] * POCT glucose (11/29/2024 5:14 PM HIDE SALTER) Glucose, POC 103 70 - 199 mg/dL Blood 11/29/2024 5:14 PM HIDE SALTER 11/29/2024 5:14 PM HIDE SALTER us Josué Del Valle MD PhD LAB POCT ORDERABLES - DE VICE Final Result Performing Organization Address [facility] Phone Number [facility] [place] [address] * POCT glucose (11/29/2024 1:11 PM HIDE SALTER) Glucose, POC 115 70 - 199 mg/dL Blood 11/29/2024 1:11 PM HIDE SALTER 11/29/2024 1:11 PM HIDE SALTER Josué Del Valle MD PhD LAB POCT ORDERABLES - DE VICE Final Result Performing Organization Address [facility] Phone Number [facility] Department [place] [address] * POCT glucose (11/29/2024 8:13 AM HIDE SALTER) Pathologist [facility] Glucose, POC 84 70 - 199 mg/dL Blood 11/29/2024 8:13 AM HIDE SALTER 11/29/2024 8:13 AM HIDE SALTER us Josué Del Valle MD PhD LAB POCT ORDERABLES - DE VICE Final Result [facility]ULEMA DENT Daniela [facility] Department [place] [address] * eGFR (11/29/2024 12:29 AM HIDE SALTER) [facility] [...] interpretive data was last reviewed 2021. Blood 11/29/2024 12:2 9 AM HIDE SALTER 11/29/2024 1:35 AM HIDE SALTER Juan A Chanel DO LAB BLOOD ORDERABLES Final Resul t [facility] Department [place] [address] * (ABNORMAL) Manual Differential (11/29/2024 12:29 AM HIDE SALTER) Differential Manual Cells Counted 115 [facility] Neutrophil abs 4.0 1.5 - 6.5 K/cumm [facility] Imm gran abs 0.0 0.0 - 0.1 K/cumm [facility] Lymphocyte abs 3.2 0.8 - 3.3 K/cumm [facility] Monocyte abs 0.9(H) 0.2 - 0.8 K/cumm [facility] Eosinophil abs 0.2 0.0 - 0.5 K/cumm [facility] Neutrophil pct 47.8 % [facility] Comment: Interpretive Data Percent cell count reference ranges are not reported, since discordance with absolute values may lead to misinterpretation of CBC data. Current Interpretive Data was last revised on 2018. Lymphocyte pct 38.3 % [facility] Comment: Interpretive Data Percent cell count reference ranges are not reported, since discordance with absolute values may lead to misinterpretation of CBC data. Current Interpretive Data was last revised on 2018. Monocyte pct 11.3 % [facility] Comment: Interpretive Data Percent cell count reference ranges are not reported, since discordance with absolute values may lead to misinterpretation of CBC data. Current Interpretive Data was last revised on 2018. Eosinophil pct 2.6 % [facility] Comment: Interpretive Data Percent cell count reference ranges are not reported, since discordance with absolute values may lead to misinterpretation of CBC data. Current Interpretive Data was last revised on 2018. RBC morphology Present(A) [facility] Anisocytosis Marked(A) [facility] Macrocytes > 15/HPF(A) [facility] Platelet estimate Adequate [facility] Blood 11/29/2024 12:2 9 AM HIDE SALTER 11/29/2024 1:32 AM HIDE SALTER Juan A Chanel DO LAB BLOOD ORDERABLES Edited Resu lt - Final Performing Organization Address City/[facility] Co de Phone Number [facility] Department [place] [address] * (ABNORMAL) CBC without differential (11/29/2024 12:29 AM HIDE SALTER) WBC 8.3 3.8 - 9.9 K/cumm Hgb 9.5(L) 13.0 - 17.5 g/dL [facility] Hct 29.5(L) 38.9 - 50.3 % [facility] Plt 376 150 - 400 K/cumm [facility] MPV 10.4 9.1 - 12.3 fL [facility] RBC 2.78(L) 4.30 - 5.80 M/cumm [facility] MCV 106.1(H) 81.3 - 96.4 fL [facility] MCH 34.2(H) 27.1 - 33.3 pg [facility] MCHC 32.2(L) 32.3 - 35.7 g/dL [facility] RDW CV 14.2 11.1 - 14.9 % [facility] RDW SD 55.5(H) 35.7 - 48.1 fL [facility] NRBC abs 0.04(H) 0.00 - 0.01 K/cumm [facility] Blood 11/29/2024 12:2 9 AM HIDE SALTER 11/29/2024 1:32 AM HIDE SALTER us Juan A Chanel DO LAB BLOOD ORDERABLES Final Resul t Performing Organization Address City/[facility]/ZIP Co de Phone Number [facility] Department [place] [address] * (ABNORMAL) Phosphorus (11/29/2024 12:29 AM HIDE SALTER) Phosphorus, pl 2.2(L) 2.3 - 4.5 mg/dL Blood 11/29/2024 12:2 9 AM HIDE SALTER 11/29/2024 1:35 AM HIDE SALTER Juan A Chanel DO LAB BLOOD ORDERABLES Final Resul t Performing Organization Address [facility] de Phone Number [facility] [address] * Magnesium (11/29/2024 12:29 AM HIDE SALTER) Magnesium 1.7 1.4 - 2.5 mg/dL Blood 11/29/2024 12:2 9 AM HIDE SALTER 11/29/2024 1:35 AM HIDE SALTER [facility] DO LAB BLOOD ORDERABLES Final Resul t Performing Organization Address [facility] de Phone Number [facility] [place] [address] * (ABNORMAL) Basic metabolic panel (11/29/2024 12:29 AM HIDE SALTER) Pathologist [facility] Sodium 138 135 - 145 mmol/L Potassium, pl 3.7 3.3 - 4.9 mmol/L [facility] Chloride 99 97 - 110 mmol/L [facility] CO2 34(H) 22 - 32 mmol/L [facility] Anion gap 5 2 - 15 mmol/L [facility] BUN 17 6 - 25 mg/dL [facility] Creatinine 0.88 0.80 - 1.30 mg/dL [facility] Glucose 119 70 - 199 mg/dL [facility] [...] 2022. Calcium 8.7 8.5 - 10.3 mg/dL [facility] Blood 11/29/2024 12:2 9 AM HIDE SALTER 11/29/2024 1:35 AM HIDE SALTER Narrative [facility] - 11/29/2024 1:38 AM HIDE SALTER Daily except Saturday and . Morning draw. Juan A Chanel DO LAB BLOOD ORDERABLES Final Resul t Performing Organization Address City/[facility] Co de Phone Number [facility] [employer] [address] * (ABNORMAL) POCT glucose (11/28/2024 9:30 PM HIDE SALTER) Glucose, POC 204(H) 70 - 199 mg/dL Blood 11/28/2024 9:30 PM HIDE SALTER 11/28/2024 9:30 PM HIDE SALTER Josué Del Valle MD PhD LAB POCT ORDERABLES - DE VICE Final Result Performing Organization Address [facility] Co de Phone Number [facility] Department [place] [employer] [place] [address] * POCT glucose (11/28/2024 5:09 PM HIDE SALTER) Glucose, POC 182 70 - 199 mg/dL Blood 11/28/2024 5:09 PM HIDE SALTER 11/28/2024 5:09 PM HIDE SALTER Josué Del Valle MD PhD LAB POCT ORDERABLES - DE VICE Final Result Performing Organization Address [facility] Co de Phone Number [facility] [place] [address] * ECG 12 lead (11/28/2024 1:47 PM HIDE SALTER) Ventricular Rate EKG/Min 63 BPM [facility] Atrial Rate 63 BPM [facility] MS-Interval (MSEC) 138 ms [facility] QRS-Interval (MSEC) 92 ms [facility] QT-Interval (MSEC) 430 ms [facility] QTc 440 ms [facility] P [place] 79 degrees [facility] R [place] 88 degrees [facility] T [place] 41 degrees [facility] Diagnosis Normal sinus rhythm Poor r wave progression associated with abnormal lead placement, obesity, pulmonary disease, anterior infarction. Borderline ECG When compared with ECG of 29-JUL-2024 09:55, ST no longer depressed in Inferior leads T wave inversion no longer evident in Inferior leads T wave inversion no longer evident in Lateral leads QT has shortened Confirmed by SOHAM WINTERS M.D ([id number]) on 11/30/2024 10:34:40 AM [facility] 11/28/2024 1:47 PM HIDE SALTER 11/30/2024 10:34 AM HIDE SALTER Juan A Chanel DO ECG ORDERABLES Final Result [facility] * eGFR (11/28/2024 1:40 PM HIDE SALTER) [facility] [...] interpretive data was last reviewed 2021. Blood 11/28/2024 1:40 PM HIDE SALTER 11/28/2024 1:46 PM HIDE SALTER us Juan A Chanel DO LAB BLOOD ORDERABLES Final Resul t [facility] Department [place] [address] * (ABNORMAL) Manual Differential (11/28/2024 1:40 PM HIDE SALTER) Differential Manual Cells Counted 114 [facility] Neutrophil abs 4.5 1.5 - 6.5 K/cumm [facility] Imm gran abs 0.1 0.0 - 0.1 K/cumm [facility] Lymphocyte abs 2.0 0.8 - 3.3 K/cumm [facility] Monocyte abs 0.6 0.2 - 0.8 K/cumm [facility] Eosinophil abs 0.4 0.0 - 0.5 K/cumm [facility] Neutrophil pct 58.7 % [facility] Comment: Interpretive Data Percent cell count reference ranges are not reported, since discordance with absolute values may lead to misinterpretation of CBC data. Current Interpretive Data was last revised on 2018. Lymphocyte pct 26.3 % [facility] Comment: Interpretive Data Percent cell count reference ranges are not reported, since discordance with absolute values may lead to misinterpretation of CBC data. Current Interpretive Data was last revised on 2018. Monocyte pct 7.9 % [facility] Comment: Interpretive Data Percent cell count reference ranges are not reported, since discordance with absolute values may lead to misinterpretation of CBC data. Current Interpretive Data was last revised on 2018. Eosinophil pct 5.3 % [facility] Comment: Interpretive Data Percent cell count reference ranges are not reported, since discordance with absolute values may lead to misinterpretation of CBC data. Current Interpretive Data was last revised on 2018. Myelocyte pct 1.8 % [facility] RBC morphology Present(A) [facility] Anisocytosis Slight(A) [facility] Poikilocytosis Slight(A) [facility] Macrocytes > 15/HPF(A) [facility] Platelet estimate Adequate [facility] Blood 11/28/2024 1:4 0 PM HIDE SALTER 11/28/2024 1:46 PM HIDE SALTER us Juan A Chanel DO LAB BLOOD ORDERABLES Edited Resu lt - Final [facility] Department [place] [address] * (ABNORMAL) CBC without differential (11/28/2024 1:40 PM HIDE SALTER) WBC 7.7 3.8 - 9.9 K/cumm Hgb 11.3(L) 13.0 - 17.5 g/dL [facility] Hct 34.6(L) 38.9 - 50.3 % [facility] Plt 409(H) 150 - 400 K/cumm [facility] MPV 9.7 9.1 - 12.3 fL [facility] RBC 3.25(L) 4.30 - 5.80 M/cumm [facility] MCV 106.5(H) 81.3 - 96.4 fL [facility] MCH 34.8(H) 27.1 - 33.3 pg [facility] MCHC 32.7 32.3 - 35.7 g/dL [facility] RDW CV 14.5 11.1 - 14.9 % [facility] RDW SD 56.7(H) 35.7 - 48.1 fL [facility] NRBC abs 0.04(H) 0.00 - 0.01 K/cumm [facility] Blood 11/28/2024 1:40 PM HIDE SALTER 11/28/2024 1:46 PM HIDE SALTER Dominiquealeah Chanel DO LAB BLOOD ORDERABLES Final Resul t Performing Organization Address [facility] de Phone Number [facility] [address] * Type and screen (11/28/2024 1:40 PM HIDE SALTER) ABO Rh A Positive Ursula, indirect Negative [facility] Blood 11/28/2024 1:40 PM HIDE SALTER 11/28/2024 1:49 PM HIDE SALTER Narrative [facility] - 11/28/2024 2:38 PM HIDE SALTER Has the patient had Daratumumab or Isatuximab in the past 6 months?->Unknown Result [facility] Juan A Chanel LAB BLOOD BANK TEST ORDERABLES F inal Result Performing Organization Address [facility] de Phone Number [facility] Department [place] [address] * (ABNORMAL) Uric acid (11/28/2024 1:40 PM HIDE SALTER) Uric acid 2.9(L) 3.0 - 8.0 mg/dL Blood 11/28/2024 1:40 PM HIDE SALTER 11/28/2024 1:46 PM HIDE SALTER Juan A Chanel DO LAB BLOOD ORDERABLES Final Resul t Performing Organization Address [facility] de Phone Number [facility] [address] * Phosphorus (11/28/2024 1:40 PM HIDE SALTER) Phosphorus, pl 2.4 2.3 - 4.5 mg/dL Blood 11/28/2024 1:40 PM HIDE SALTER 11/28/2024 1:46 PM HIDE SALTER Juan A Chanel DO LAB BLOOD ORDERABLES Final Resul t Performing Organization Address [facility] Co de Phone Number [facility] [place] [address] * Magnesium (11/28/2024 1:40 PM HIDE SALTER) [facility] Magnesium 1.7 1.4 - 2.5 mg/dL Blood 11/28/2024 1:40 PM HIDE SALTER 11/28/2024 1:46 PM HIDE SALTER Dominiquealeah Darío DO LAB BLOOD ORDERABLES Final Resul t Performing Organization Address [facility] de Phone Number [facility] Department [place] [address] * Lactate dehydrogenase (LD) (11/28/2024 1:40 PM HIDE SALTER) [facility] Lactate dehydrogenase (LDH) 226 100 - 250 Units/L Blood 11/28/2024 1:40 PM HIDE SALTER 11/28/2024 1:46 PM HIDE SALTER Dominiquerachaelaleah Chanel DO LAB BLOOD ORDERABLES Final Resul t Performing Organization Address [facility] de Phone Number [facility] Department [place] [address] * (ABNORMAL) Comprehensive metabolic panel (11/28/2024 1:40 PM HIDE SALTER) [facility] Sodium 139 135 - 145 mmol/L Potassium, pl 3.8 3.3 - 4.9 mmol/L [facility] Chloride 98 97 - 110 mmol/L [facility] CO2 37(H) 22 - 32 mmol/L [facility] Anion gap 4 2 - 15 mmol/L [facility] BUN 17 6 - 25 mg/dL [facility] Creatinine 0.85 0.80 - 1.30 mg/dL [facility] Glucose 74 70 - 199 mg/dL [facility] [...] 2022. Calcium 9.1 8.5 - 10.3 mg/dL [facility] Bilirubin, total 0.2 0.1 - 1.2 mg/dL [facility] Protein, pl 6.7 6.5 - 8.5 g/dL [facility] Albumin 3.6 3.5 - 5.0 g/dL [facility] Alk phos 120 40 - 130 Units/L [facility] ALT 36 7 - 55 Units/L [facility] AST 32 10 - 50 Units/L [facility] Blood 11/28/2024 1:40 PM HIDE SALTER 11/28/2024 1:46 PM HIDE SALTER Dominiquealeah Chanel DO LAB BLOOD ORDERABLES Final Resul t Performing Organization Address City/[facility] Co de Phone Number [facility] [employer] [place] [address] * aPTT (11/28/2024 1:32 PM HIDE SALTER) aPTT 34 28 - 38 sec Comment: Interpretive Data Heparin therapeutic range: 66.0 - 100.0 seconds. Range based on correlation with therapeutic heparin activity range of 0.3 - 0.7 Units/mL. Current interpretive data was last revised on 2023. Blood 11/28/2024 1:32 PM HIDE SALTER 11/28/2024 1:39 PM HIDE SALTER Juan A Chanel DO LAB BLOOD ORDERABLES Final Resul t Performing Organization Address City/[facility]/ZIP Co de Phone Number [facility] [place] [address] * Protime-INR (11/28/2024 1:32 PM HIDE SALTER) PT 12.6 9.7 - 13.0 sec INR 1.16 0.90 - 1.20 [facility] Comment: Interpretive data Oral anticoagulant therapeutic ranges: Venous thromboembolism prophylaxis or treatment: 2.0-3.0 CARDIOLOGY Standard range: 2.0-3.0 High-intensity range: 2.5-3.5 Refer to indication-specific guidelines for appropriate target ranges for prosthetic heart valve replacement. Current interpretive data was last revised on 2019. Blood 11/28/2024 1:32 PM HIDE SALTER 11/28/2024 1:39 PM HIDE SALTER Dominiquealeah Chanel LAB BLOOD ORDERABLES Final Resul t Performing Organization Address [facility] Co de Phone Number [facility] [employer] [address] * (ABNORMAL) Fibrinogen (11/28/2024 1:32 PM HIDE SALTER) Pathologist [facility] Fibrinogen 561(H) 170 - 400 mg/dL Blood 11/28/2024 1:32 PM HIDE SALTER 11/28/2024 1:39 PM HIDE SALTER [facility] LAB BLOOD ORDERABLES Final Resul t Performing Organization Address City/State/[facility] [place] [address] * (ABNORMAL) POCT glucose (11/18/2024 11:20 AM HIDE SALTER) Pathologist [facility] Glucose, POC 201(H) 70 - 199 mg/dL Comment:Glu2: RN/MD Notified Glucose comment 1 Glu2: RN/ Notified [facility] Blood 11/18/2024 11:2 0 AM HIDE SALTER 11/18/2024 11:20 AM HIDE SALTER us Cruz Redding MD PhD LAB POCT ORDERABLES - DEVICE Final Result Performing Organization Address [facility] de Phone Number ZULEMA [facility] [employer] [address] * POCT glucose (11/18/2024 7:30 AM HIDE SALTER) Glucose, POC 148 70 - 199 mg/dL Blood 11/18/2024 7:30 AM HIDE SALTER 11/18/2024 7:30 AM HIDE SALTER us Cruz Redding MD PhD LAB POCT ORDERABLES - DEVICE Final Result Performing Organization Address [facility] de Phone Number ZULEMA [facility] [place] [employer] [place] [address] * POCT glucose (11/18/2024 4:25 AM HIDE SALTER) Glucose, POC 146 70 - 199 mg/dL Blood 11/18/2024 4:25 AM HIDE SALTER 11/18/2024 4:25 AM HIDE SALTER us Cruz Redding MD PhD LAB POCT ORDERABLES - DEVICE Final Result Performing Organization Address [facility] de Phone Number ZULEMA [facility] [place] [employer] [place] [address] * eGFR (11/18/2024 2:38 AM HIDE SALTER) eGFR >90 >=60 mL/min/1. 73 m2 Comment: [...] last reviewed 2021. Blood 11/18/2024 2:38 AM HIDE SALTER 11/18/2024 3:24 AM HIDE SALTER us Josué Del Valle MD PhD LAB BLOOD ORDERABLES Fin al Result [facility] Department [place] [address] * (ABNORMAL) Manual Differential (11/18/2024 2:38 AM HIDE SALTER) Differential Manual Cells Counted 116 [facility] Neutrophil abs 3.4 1.5 - 6.5 K/cumm [facility] Imm gran abs 0.0 0.0 - 0.1 K/cumm [facility] Lymphocyte abs 2.2 0.8 - 3.3 K/cumm [facility] Monocyte abs 0.3 0.2 - 0.8 K/cumm [facility] Eosinophil abs 0.5 0.0 - 0.5 K/cumm [facility] Basophil abs 0.1 0.0 - 0.1 K/cumm [facility] Neutrophil pct 52.6 % [facility] Comment: Interpretive Data Percent cell count reference ranges are not reported, since discordance with absolute values may lead to misinterpretation of CBC data. Current Interpretive Data was last revised on 2018. Lymphocyte pct 33.6 % [facility] Comment: Interpretive Data Percent cell count reference ranges are not reported, since discordance with absolute values may lead to misinterpretation of CBC data. Current Interpretive Data was last revised on 2018. Monocyte pct 4.3 % [facility] Comment: Interpretive Data Percent cell count reference ranges are not reported, since discordance with absolute values may lead to misinterpretation of CBC data. Current Interpretive Data was last revised on 2018. Eosinophil pct 7.8 % [facility] Comment: Interpretive Data Percent cell count reference ranges are not reported, since discordance with absolute values may lead to misinterpretation of CBC data. Current Interpretive Data was last revised on 2018. Basophil pct 1.7 % [facility] Comment: Interpretive Data Percent cell count reference ranges are not reported, since discordance with absolute values may lead to misinterpretation of CBC data. Current Interpretive Data was last revised on 2018. RBC morphology Present(A) [facility] Anisocytosis Slight(A) [facility] Macrocytes 3-7/HPF(A) [facility] Platelet estimate Adequate [facility] Blood 11/18/2024 2:38 AM HIDE SALTER 11/18/2024 3:24 AM HIDE SALTER us Josué Del Valle MD PhD LAB BLOOD ORDERABLES Fin al Result [facility] Department [place] [address] * (ABNORMAL) CBC without differential (11/18/2024 2:38 AM HIDE SALTER) WBC 6.4 3.8 - 9.9 K/cumm Hgb 9.9(L) 13.0 - 17.5 g/dL [facility] Hct 30.0(L) 38.9 - 50.3 % [facility] Plt 254 150 - 400 K/cumm [facility] MPV 10.5 9.1 - 12.3 fL [facility] RBC 2.83(L) 4.30 - 5.80 M/cumm [facility] MCV 106.0(H) 81.3 - 96.4 fL [facility] MCH 35.0(H) 27.1 - 33.3 pg [facility] MCHC 33.0 32.3 - 35.7 g/dL [facility] RDW CV 14.8 11.1 - 14.9 % [facility] RDW SD 58.4(H) 35.7 - 48.1 fL [facility] NRBC abs 0.00 0.00 - 0.01 K/cumm [facility] Blood 11/18/2024 2:38 AM HIDE SALTER 11/18/2024 3:24 AM HIDE SALTER Josué Del Valle MD PhD LAB BLOOD ORDERABLES Fin al Result Performing Organization Address City/[facility] Co de Phone Number [facility] [employer] [address] * Phosphorus (11/18/2024 2:38 AM HIDE SALTER) Phosphorus, pl 3.2 2.3 - 4.5 mg/dL Blood 11/18/2024 2:38 AM HIDE SALTER 11/18/2024 3:24 AM HIDE SALTER Josué Del Valle MD PhD LAB BLOOD ORDERABLES Fin al Result Performing Organization Address [facility] Co de Phone Number [facility] [place] [employer] [place] [address] * Magnesium (11/18/2024 2:38 AM HIDE SALTER) Magnesium 1.9 1.4 - 2.5 mg/dL Blood 11/18/2024 2:38 AM HIDE SALTER 11/18/2024 3:24 AM HIDE SALTER Josué Del Valle MD PhD LAB BLOOD ORDERABLES Fin al Result Performing Organization Address City/[facility] Co de Phone Number [facility] [address] * (ABNORMAL) Basic metabolic panel (11/18/2024 2:38 AM HIDE SALTER) Sodium 143 135 - 145 mmol/L Potassium, pl 4.1 3.3 - 4.9 mmol/L [facility] Chloride 104 97 - 110 mmol/L [facility] CO2 32 22 - 32 mmol/L [facility] Anion gap 7 2 - 15 mmol/L [facility] BUN 20 6 - 25 mg/dL [facility] Creatinine 0.78(L) 0.80 - 1.30 mg/dL [facility] Glucose 117 70 - 199 mg/dL [facility] [...] 2022. Calcium 8.3(L) 8.5 - 10.3 mg/dL [facility] Blood 11/18/2024 2:38 AM HIDE SALTER 11/18/2024 3:24 AM HIDE SALTER Narrative [facility] - 11/18/2024 3:55 AM HIDE SALTER Daily except Saturday and . Morning draw. Josué Del Valle MD PhD LAB BLOOD ORDERABLES Fin al Result [facility] Department [place] [address] * POCT glucose (11/18/2024 12:47 AM HIDE SALTER) Glucose, POC 125 70 - 199 mg/dL Blood 11/18/2024 12:4 7 AM HIDE SALTER 11/18/2024 12:47 AM HIDE SALTER us Cruz Redding MD PhD LAB POCT ORDERABLES - DEVICE Final Result Performing Organization Address City/[facility]/ZIP Co de Phone Number [facility] [employer] [address] * POCT glucose (11/17/2024 8:11 PM HIDE SALTER) Glucose, POC 135 70 - 199 mg/dL Blood 11/17/2024 8:11 PM HIDE SALTER 11/17/2024 8:11 PM HIDE SALTER us Cruz Redding MD PhD LAB POCT ORDERABLES - DEVICE Final Result Performing Organization Address [facility] Co de Phone Number [facility] [employer] [address] * (ABNORMAL) POCT glucose (11/17/2024 5:32 PM HIDE SALTER) Glucose, POC 229(H) 70 - 199 mg/dL Blood 11/17/2024 5:32 PM HIDE SALTER 11/17/2024 5:32 PM HIDE SALTER Cruz Redding MD PhD LAB POCT ORDERABLES - DEVICE Final Result Performing Organization Address City/[facility] Co de Phone Number [facility] [place] [employer] [place] [address] * POCT glucose (11/17/2024 12:03 PM HIDE SALTER) Glucose, POC 156 70 - 199 mg/dL Blood 11/17/2024 12:0 3 PM HIDE SALTER 11/17/2024 12:03 PM HIDE SALTER Cruz Redding MD PhD LAB POCT ORDERABLES - DEVICE Final Result Performing Organization Address City/[facility]/ZIP Co de Phone Number [facility] [employer] [address] * POCT glucose (11/17/2024 11:14 AM HIDE SALTER) Glucose, POC 174 70 - 199 mg/dL Blood 11/17/2024 11:1 4 AM HIDE SALTER 11/17/2024 11:14 AM HIDE SALTER Cruz Redding MD PhD LAB POCT ORDERABLES - DEVICE Final Result Performing Organization Address [facility] Co de Phone Number [facility] Department [place] [employer] [place] [address] * POCT glucose (11/17/2024 7:19 AM HIDE SALTER) Glucose, POC 126 70 - 199 mg/dL Blood 11/17/2024 7:19 AM HIDE SALTER 11/17/2024 7:19 AM HIDE SALTER Cruz Redding MD PhD LAB POCT ORDERABLES - DEVICE Final Result Performing Organization Address [facility] Co de Phone Number [facility] [place] [employer] [place] [address] * POCT glucose (11/17/2024 4:32 AM HIDE SALTER) Glucose, POC 159 70 - 199 mg/dL Blood 11/17/2024 4:32 AM HIDE SALTER 11/17/2024 4:32 AM HIDE SALTER Cruz Redding MD PhD LAB POCT ORDERABLES - DEVICE Final Result Performing Organization Address [facility] [place] [address] * POCT glucose (11/17/2024 12:33 AM HIDE SALTER) Glucose, POC 178 70 - 199 mg/dL Blood 11/17/2024 12:3 3 AM HIDE SALTER 11/17/2024 12:33 AM HIDE SALTER us Cruz Redding MD PhD LAB POCT ORDERABLES - DEVICE Final Result Performing Organization Address [facility] Co de Phone Number ZULEMA DENT Daniela [facility] Department [place] [address] * eGFR (11/17/2024 12:31 AM HIDE SALTER) eGFR >90 >=60 mL/min/1. 73 m2 Comment: [...] reviewed 2021. Blood 11/17/2024 12:3 1 AM HIDE SALTER 11/17/2024 12:53 AM HIDE SALTER us Josué Del Valle MD PhD LAB BLOOD ORDERABLES Fin al Result Performing Organization Address [facility] Co de Phone Number ZULEMA DENT Daniela [facility] Department [place] [address] * (ABNORMAL) Manual Differential (11/17/2024 12:31 AM HIDE SALTER) Differential Manual Cells Counted 114 [facility] Neutrophil abs 3.4 1.5 - 6.5 K/cumm [facility] Imm gran abs 0.1 0.0 - 0.1 K/cumm [facility] Lymphocyte abs 2.3 0.8 - 3.3 K/cumm [facility] Monocyte abs 0.6 0.2 - 0.8 K/cumm [facility] Eosinophil abs 0.2 0.0 - 0.5 K/cumm [facility] Neutrophil pct 50.9 % [facility] Comment: Interpretive Data Percent cell count reference ranges are not reported, since discordance with absolute values may lead to misinterpretation of CBC data. Current Interpretive Data was last revised on 2018. Lymphocyte pct 35.1 % [facility] Comment: Interpretive Data Percent cell count reference ranges are not reported, since discordance with absolute values may lead to misinterpretation of CBC data. Current Interpretive Data was last revised on 2018. Monocyte pct 9.6 % [facility] Comment: Interpretive Data Percent cell count reference ranges are not reported, since discordance with absolute values may lead to misinterpretation of CBC data. Current Interpretive Data was last revised on 2018. Eosinophil pct 3.5 % [facility] Comment: Interpretive Data Percent cell count reference ranges are not reported, since discordance with absolute values may lead to misinterpretation of CBC data. Current Interpretive Data was last revised on 2018. Promyelocyte pct 0.9 % [facility] RBC morphology Present(A) [facility] Anisocytosis Marked(A) [facility] Macrocytes > 15/HPF(A) [facility] Platelet estimate Adequate [facility] Blood 11/17/2024 12:3 1 AM HIDE SALTER 11/17/2024 12:49 AM HIDE SALTER us Josué Del Valle MD PhD LAB BLOOD ORDERABLES Arun tamiko Result - Final [facility] One [facility] [place] [address] * (ABNORMAL) CBC without differential (11/17/2024 12:31 AM HIDE SALTER) WBC 6.6 3.8 - 9.9 K/cumm Hgb 11.6(L) 13.0 - 17.5 g/dL [facility] Hct 35.3(L) 38.9 - 50.3 % [facility] Plt 307 150 - 400 K/cumm [facility] MPV 10.5 9.1 - 12.3 fL [facility] RBC 3.38(L) 4.30 - 5.80 M/cumm [facility] MCV 104.4(H) 81.3 - 96.4 fL [facility] MCH 34.3(H) 27.1 - 33.3 pg [facility] MCHC 32.9 32.3 - 35.7 g/dL [facility] RDW CV 14.7 11.1 - 14.9 % [facility] RDW SD 56.7(H) 35.7 - 48.1 fL [facility] NRBC abs 0.00 0.00 - 0.01 K/cumm [facility] Blood 11/17/2024 12:3 1 AM HIDE SALTER 11/17/2024 12:49 AM HIDE SALTER us Josué Del Valle MD PhD LAB BLOOD ORDERABLES Fin al Result [facility] [employer] [address] * Uric acid (11/17/2024 12:31 AM HIDE SALTER) Pathologist [facility] Uric acid 6.0 3.0 - 8.0 mg/dL Blood 11/17/2024 12:3 1 AM HIDE SALTER 11/17/2024 12:46 AM HIDE SALTER us Cruz Redding MD PhD LAB BLOOD ORDERABLE S Final Result [facility] Department [place] [address] * Phosphorus (11/17/2024 12:31 AM HIDE SALTER) Pathologist [facility] Phosphorus, pl 2.7 2.3 - 4.5 mg/dL Blood 11/17/2024 12:3 1 AM HIDE SALTER 11/17/2024 12:46 AM HIDE SALTER us Josué Del Valle MD PhD LAB BLOOD [place] [address] * Magnesium (11/17/2024 12:31 AM HIDE SALTER) Pathologist [facility] Magnesium 1.9 1.4 - 2.5 mg/dL Blood 11/17/2024 12:3 1 AM HIDE SALTER 11/17/2024 12:46 AM HIDE SALTER us Josué Del Valle MD PhD LAB BLOOD ORDERABLES Fin al Result Performing Organization Address [facility] Co de Phone Number [facility] [employer] [address] * Lactate dehydrogenase (LD) (11/17/2024 12:31 AM HIDE SALTER) [facility] Lactate dehydrogenase (LDH) 220 100 - 250 Units/L Blood 11/17/2024 12:3 1 AM HIDE SALTER 11/17/2024 12:46 AM HIDE SALTER us Cruz Redding MD PhD LAB BLOOD ORDERABLE S Final Result Performing Organization Address [facility] [place] [address] * (ABNORMAL) Hemoglobin A1c (11/17/2024 12:31 AM HIDE SALTER) Pathologist [facility] Hgb A1C 6.0(H) 4.0 - 5.6 % Estimated Average Glucose 126 mg/dL [facility] Comment: The ADA recommends reporting an estimated Average Glucose (eAG) with all Hemoglobin A1c results using the equation derived from a study of 507 normal and diabetic adults. ??Minority populations were underrepresented and children were not included. ?? (Diabetes Care 2020; 43(S1): S66-S76). ??The eAG is not equivalent to a fasting glucose. Blood 11/17/2024 12:3 1 AM HIDE SALTER 11/17/2024 12:52 AM HIDE SALTER Narrative [facility] - 11/17/2024 5:28 PM HIDE SALTER Reflex us Cruz Redding MD PhD LAB BLOOD ORDERABLE S Final Result [facility] Department [place] [address] * (ABNORMAL) Basic metabolic panel (11/17/2024 12:31 AM HIDE SALTER) Sodium 142 135 - 145 mmol/L Potassium, pl 3.9 3.3 - 4.9 mmol/L [facility] Chloride 101 97 - 110 mmol/L [facility] CO2 33(H) 22 - 32 mmol/L [facility] Anion gap 8 2 - 15 mmol/L [facility] BUN 20 6 - 25 mg/dL [facility] Creatinine 0.66(L) 0.80 - 1.30 mg/dL [facility] Glucose 166 70 - 199 mg/dL [facility] [...] 2022. Calcium 9.4 8.5 - 10.3 mg/dL [facility] Blood 11/17/2024 12:3 1 AM HIDE SALTER 11/17/2024 12:46 AM HIDE SALTER Narrative [facility] - 11/17/2024 1:32 AM HIDE SALTER Daily except Saturday and . Morning draw. Josué Del Valle MD PhD LAB BLOOD ORDERABLES Fin al Result Performing Organization Address [facility] Co de Phone Number [facility] Department [place] [employer] [address] * (ABNORMAL) POCT glucose (11/16/2024 8:43 PM HIDE SALTER) Glucose, POC 231(H) 70 - 199 mg/dL Blood 11/16/2024 8:43 PM HIDE SALTER 11/16/2024 8:43 PM HIDE SALTER Cruz Redding MD PhD LAB POCT ORDERABLES - DEVICE Final Result Performing Organization Address [facility] Co de Phone Number [facility] [place] [employer] [place] [address] * POCT glucose (11/16/2024 5:06 PM HIDE SALTER) Glucose, POC 120 70 - 199 mg/dL Blood 11/16/2024 5:06 PM HIDE SALTER 11/16/2024 5:06 PM HIDE SALTER Cruz Redding MD PhD LAB POCT ORDERABLES - DEVICE Final Result Performing Organization Address [facility] de Phone Number [facility] [employer] [address] * Surgical pathology (11/16/2024 4:53 PM HIDE SALTER) Tissue (Esophageal biopsy) 11/16/2024 4:53 PM HIDE SALTER Narrative PATHOLOGY [facility] - 11/17/2024 3:51 PM HIDE SALTER EPIC results best viewed via link to PDF [facility] Ramonita Jaramillo Laboratory of Surgical Pathology [facility], [place] [address] Note to Patients: This report may contain [...] ??1965 (Age: 59) Address: ??[address] [place], [place] ??[address] Hospital #: ??[id number] Taken:11/16/2024 Received:11/16/2024 Reported: 11/17/2024 Patient Type: [facility] Inpatient ?? Service: Gastroenterology Location: [facility] ??[id number] Physician(s): ??MD Kirt Romero DO Kellie Hughes, [...] Surgical Pathology and Flow Cytometry Departments at [facility] as part of an ongoing quality assurance manager program and in compliance with federally [...] Surgical Pathology and Flow Cytometry Departments of [facility]. ??It has not been cleared or approved by the U. S. Food and Drug Administration. IMAGES AND SCANNED DOCUMENTS, IF INCLUDED, ONLY VIEWABLE IN PDF VERSION OF REPORT us Hany Martinez MD LAB PATHOLOGY ORDERABLES Final Result PATHOLOGY [facility] [address]rd Floor [place], [place] [phone] * EGD (11/16/2024 4:05 PM HIDE SALTER) Anatomical Region Laterality Modality Other Narrative Procedure Note Hany Martinez MD - 11/16/2024 4:05 PM [facility] Patient Name: Bri Jones Procedure Date: 11/16/2024 4:05 PM Date of : 1965 Admit Type: Outpatient Age: 59 Gender: Male Attending MD: Hany Martinez M.D. Room: [facility] ENDOSCOPY Note Status: Finalized Procedure: [...] ult * POCT glucose (11/16/2024 3:54 PM HIDE SALTER) Glucose, POC 118 70 - 199 mg/dL Blood 11/16/2024 3:54 PM HIDE SALTER 11/16/2024 3:54 PM HIDE SALTER us Cruz Redding MD PhD LAB POCT ORDERABLES - DEVICE Final Result [facility] Department [place] [address] * POCT glucose (11/16/2024 11:37 AM HIDE SALTER) Glucose, POC 129 70 - 199 mg/dL Blood 11/16/2024 11:3 7 AM HIDE SALTER 11/16/2024 11:37 AM HIDE SALTER us Cruz Redding MD PhD LAB POCT ORDERABLES - DEVICE Final Result ZULE[facility] DENT Daniela [facility] Department [place] [address] * CT Chest Abdomen W Contrast (11/16/2024 10:32 AM HIDE SALTER) Anatomical Region Laterality Modality Body N/A Computed Tomogra phy 11/16/2024 11:0 1 AM HIDE SALTER Impressions 11/16/2024 11:01 AM HIDE SALTER 1. ??Two areas of segmental thickening of [...] Dominique Richmond M.D. 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 ??Patient has erosive esophagitis presenting with [...] leukemia status post stem cell transplant in 2009 with [id number] disease. Patient has erosive esophagitis presenting with [...] abdomen. Electronically signed by: Dominique Richmond M.D. us Ron Weinberg MD IMG CT PROCEDURES Final Resul t * POCT glucose (11/16/2024 7:57 AM HIDE SALTER) Glucose, POC 118 70 - 199 mg/dL Blood 11/16/2024 7:57 AM HIDE SALTER 11/16/2024 7:57 AM HIDE SALTER us Cruz Redding MD PhD LAB POCT ORDERABLES - DEVICE Final Result Performing Organization Address [facility] de Phone Number [facility] Department [place] [employer] [place] [address] * POCT glucose (11/16/2024 3:55 AM HIDE SALTER) [facility] Signature Glucose, POC 123 70 - 199 mg/dL Blood 11/16/2024 3:55 AM HIDE SALTER 11/16/2024 3:55 AM HIDE SALTER us Josué Del Valle MD PhD LAB POCT ORDERABLES - DE VICE Final Result Performing Organization Address [facility] Hospital/[facility] de Phone Number [facility] Department [place] [employer] [place] [address] * eGFR (11/16/2024 3:38 AM HIDE SALTER) eGFR >90 >=60 mL/min/1. 73 m2 Comment: [...] last reviewed 2021. Blood 11/16/2024 3:38 AM HIDE SALTER 11/16/2024 4:26 AM HIDE SALTER Josué Del Valle MD PhD LAB BLOOD ORDERABLES Fin al Result Performing Organization Address [facility] de Phone Number [facility] Department [place] [employer] [place] [address] * aPTT (11/16/2024 3:38 AM HIDE SALTER) aPTT 36 28 - 38 sec Comment: Interpretive Data Heparin therapeutic range: 66.0 - 100.0 seconds. Range based on correlation with therapeutic heparin activity range of 0.3 - 0.7 Units/mL. Current interpretive data was last revised on 2023. Blood 11/16/2024 3:38 AM HIDE SALTER 11/16/2024 4:24 AM HIDE SALTER Josué Del Valle MD PhD LAB BLOOD ORDERABLES Fin al Result Performing Organization Address [facility] de Phone Number ZULEMA DENTH [facility] [place] [address] * (ABNORMAL) Fibrinogen (11/16/2024 3:38 AM HIDE SALTER) Pathologist [facility] Fibrinogen 771(H) 170 - 400 mg/dL Blood 11/16/2024 3:38 AM HIDE SALTER 11/16/2024 4:24 AM HIDE SALTER Josué Del Valle MD PhD LAB BLOOD ORDERABLES Fin al Result Performing Organization Address City/[facility]/[place] [address] * Type and screen (11/16/2024 3:38 AM HIDE SALTER) Pathologist [facility] Ursula, indirect Negative ABO Rh A Positive [facility] Blood 11/16/2024 3:38 AM HIDE SALTER 11/16/2024 4:18 AM HIDE SALTER Narrative [facility] - 11/16/2024 5:10 AM HIDE SALTER Has the patient had Daratumumab or Isatuximab in the past 6 months?->Unknown Josué Del Valle MD PhD LAB BLOOD BANK TEST ORDE RABLES Final Result Performing Organization Address [facility] [place] [address] * Uric acid (11/16/2024 3:38 AM HIDE SALTER) [facility] Uric acid 5.8 3.0 - 8.0 mg/dL Blood 11/16/2024 3:38 AM HIDE SALTER 11/16/2024 4:26 AM HIDE SALTER Josué Del Valle MD PhD LAB BLOOD ORDERABLES Fin al Result Performing Organization Address City/[facility]/ZIP Co de Phone Number [facility] [address] * Phosphorus (11/16/2024 3:38 AM HIDE SALTER) Pathologist [facility] Phosphorus, pl 2.9 2.3 - 4.5 mg/dL Blood 11/16/2024 3:38 AM HIDE SALTER 11/16/2024 4:26 AM HIDE SALTER Josué Del Valle MD PhD LAB BLOOD ORDERABLES Fin al Result Performing Organization Address City/[facility] Co de Phone Number [facility] [employer] [address] * Magnesium (11/16/2024 3:38 AM HIDE SALTER) [facility] Magnesium 1.9 1.4 - 2.5 mg/dL Blood 11/16/2024 3:38 AM HIDE SALTER 11/16/2024 4:26 AM HIDE SALTER Josué Del Valle MD PhD LAB BLOOD ORDERABLES Fin al Result Performing Organization Address [facility] de Phone Number [facility] [employer] [address] * Lactate dehydrogenase (LD) (11/16/2024 3:38 AM HIDE SALTER) [facility] Lactate dehydrogenase (LDH) 205 100 - 250 Units/L Blood 11/16/2024 3:38 AM HIDE SALTER 11/16/2024 4:26 AM HIDE SALTER Josué Del Valle MD PhD LAB BLOOD ORDERABLES Fin al Result Performing Organization Address City/[facility] de Phone Number [facility] [employer] [address] * (ABNORMAL) Comprehensive metabolic panel (11/16/2024 3:38 AM HIDE SALTER) [facility] Sodium 142 135 - 145 mmol/L Potassium, pl 4.1 3.3 - 4.9 mmol/L [facility] Chloride 100 97 - 110 mmol/L [facility] CO2 32 22 - 32 mmol/L [facility] Anion gap 10 2 - 15 mmol/L [facility] BUN 20 6 - 25 mg/dL [facility] Creatinine 0.67(L) 0.80 - 1.30 mg/dL [facility] Glucose 129 70 - 199 mg/dL [facility] [...] 2022. Calcium 9.9 8.5 - 10.3 mg/dL [facility] Bilirubin, total 0.4 0.1 - 1.2 mg/dL [facility] Protein, pl 7.7 6.5 - 8.5 g/dL [facility] Albumin 4.0 3.5 - 5.0 g/dL [facility] Alk phos 180(H) 40 - 130 Units/L [facility] ALT 54 7 - 55 Units/L [facility] AST 30 10 - 50 Units/L [facility] Blood 11/16/2024 3:38 AM HIDE SALTER 11/16/2024 4:26 AM HIDE SALTER Narrative [facility] - 11/16/2024 4:58 AM HIDE SALTER Saturday and only. Morning draw. us Josué Del Valle MD PhD LAB BLOOD ORDERABLES Fin al Result [facility] Department [place] [address] * eGFR (11/16/2024 12:13 AM HIDE SALTER) Pathologist [facility] eGFR >90 >=60 mL/min/1. 73 [...] reviewed 2021. Blood 11/16/2024 12:1 3 AM HIDE SALTER 11/16/2024 12:32 AM HIDE SALTER us Mark Figueroa MD PhD LAB BLOOD ORDERABLE S Final Result Performing Organization Address City/State/[facility] Co nh Phone Number [facility] One [facility] Department [place] [address] * Differential, auto (11/16/2024 12:13 AM HIDE SALTER) Neutrophil abs 3.6 1.5 - 6.5 K/cumm Imm gran abs 0.0 0.0 - 0.1 K/cumm [facility] Lymphocyte abs 2.8 0.8 - 3.3 K/cumm [facility] Monocyte abs 0.7 0.2 - 0.8 K/cumm [facility] Eosinophil abs 0.2 0.0 - 0.5 K/cumm [facility] Basophil abs 0.1 0.0 - 0.1 K/cumm [facility] Neutrophil pct 49.1 % [facility] Comment: Interpretive Data Percent cell count reference ranges are not reported, since discordance with absolute values may lead to misinterpretation of CBC data. Current Interpretive Data was last revised on 2018. Imm gran pct 0.4 % [facility] Comment: Interpretive Data Percent cell count reference ranges are not reported, since discordance with absolute values may lead to misinterpretation of CBC data. Current Interpretive Data was last revised on 2018. Lymphocyte pct 37.9 % [facility] Comment: Interpretive Data Percent cell count reference ranges are not reported, since discordance with absolute values may lead to misinterpretation of CBC data. Current Interpretive Data was last revised on 2018. Monocyte pct 8.9 % [facility] Comment: Interpretive Data Percent cell count reference ranges are not reported, since discordance with absolute values may lead to misinterpretation of CBC data. Current Interpretive Data was last revised on 2018. Eosinophil pct 3.0 % [facility] Comment: Interpretive Data Percent cell count reference ranges are not reported, since discordance with absolute values may lead to misinterpretation of CBC data. Current Interpretive Data was last revised on 2018. Basophil pct 0.7 % [facility] Comment: Interpretive Data Percent cell count reference ranges are not reported, since discordance with absolute values may lead to misinterpretation of CBC data. Current Interpretive Data was last revised on 2018. Blood 11/16/2024 12:1 3 AM HIDE SALTER 11/16/2024 12:32 AM HIDE SALTER us Mark Figueroa MD PhD LAB BLOOD ORDERABLE S Final Result [facility]ULEMA DENT [facility] Department [place] [address] * (ABNORMAL) CBC with auto differential (11/16/2024 12:13 AM HIDE SALTER) WBC 7.3 3.8 - 9.9 K/cumm Hgb 13.1 13.0 - 17.5 g/dL [facility] Hct 39.0 38.9 - 50.3 % [facility] Plt 314 150 - 400 K/cumm [facility] MPV 10.4 9.1 - 12.3 fL [facility] RBC 3.69(L) 4.30 - 5.80 M/cumm [facility] MCV 105.7(H) 81.3 - 96.4 fL [facility] MCH 35.5(H) 27.1 - 33.3 pg [facility] MCHC 33.6 32.3 - 35.7 g/dL [facility] RDW CV 15.1(H) 11.1 - 14.9 % [facility] RDW SD 58.9(H) 35.7 - 48.1 fL [facility] NRBC abs 0.02(H) 0.00 - 0.01 K/cumm [facility] Blood 11/16/2024 12:1 3 AM HIDE SALTER 11/16/2024 12:32 AM HIDE SALTER us Mark Figueroa MD PhD LAB BLOOD ORDERABLE S Final Result [facility] One [facility] Department [place] [address] * Protime-INR (11/16/2024 12:13 AM HIDE SALTER) PT 10.6 9.7 - 13.0 sec INR 0.98 0.90 - 1.20 [facility] Comment: Interpretive data Oral anticoagulant therapeutic ranges: Venous thromboembolism prophylaxis or treatment: 2.0-3.0 CARDIOLOGY Standard range: 2.0-3.0 High-intensity range: 2.5-3.5 Refer to indication-specific guidelines for appropriate target ranges for prosthetic heart valve replacement. Current interpretive data was last revised on 2019. Blood 11/16/2024 12:1 3 AM HIDE SALTER 11/16/2024 12:35 AM HIDE SALTER Mark Figueroa MD PhD LAB BLOOD ORDERABLE S Final Result Performing Organization Address City/[facility]/ZIP Co de Phone Number [facility] One [facility] Department [place] [address] * (ABNORMAL) Basic metabolic panel (11/16/2024 12:13 AM HIDE SALTER) Pathologist [facility] Sodium 140 135 - 145 mmol/L Potassium, pl 4.8 3.3 - 4.9 mmol/L [facility] Comment:Hemolyzed; Potassium value may be falsely elevated by as much as 0.3-0.5 mmol/L. Suggest redraw and reanalysis. Chloride 100 97 - 110 mmol/L [facility] CO2 28 22 - 32 mmol/L [facility] Anion gap 12 2 - 15 mmol/L [facility] BUN 19 6 - 25 mg/dL [facility] Creatinine 0.63(L) 0.80 - 1.30 mg/dL [facility] Glucose 133 70 - 199 mg/dL [facility] [...] 2022. Calcium 9.9 8.5 - 10.3 mg/dL [facility] Blood 11/16/2024 12:1 3 AM HIDE SALTER 11/16/2024 12:32 AM HIDE SALTER us Mark Figueroa MD PhD LAB BLOOD ORDERABLE S Final Result [facility]LEMA DENT [facility] Department [place] [address] * POCT glucose (11/16/2024 12:12 AM HIDE SALTER) Glucose, POC 130 70 - 199 mg/dL Blood 11/16/2024 12:1 2 AM HIDE SALTER 11/16/2024 12:12 AM HIDE SALTER us Josué Del Valle MD PhD LAB POCT ORDERABLES - DE VICE Final Result [facility] One [facility] Department [place] [address] * Lipid panel (07/14/2024 6:22 PM CDT) [...] Luis Lance et al. CÉSAR Cardiol. 2020 May 1;5(5):540-548. doi: 10.1001/[email or web address].2020.0013 Current Interpretive Data was last [...] last revised on 2018. Chol/HDL ratio 2 [facility] Blood 07/14/2024 6:22 PM CDT 07/14/2024 9:07 PM CDT us Cameron BERNAL LAB BLOOD ORDERABLES Final R esult ZULEMA [address] [facility] Department of Laboratories [place], [place] [id number] * Albumin Creatinine Ratio, Urine (02/28/2022 8:57 AM CDT) Albumin Ur <12.0 mg/L [facility] Comment: Interpretive Data No reference range established. Current interpretive data was last revised 2019. Creatinine Ur 42.0 mg/dL [facility] Comment: Interpretive Data No reference range established. Current interpretive data was last revised 2019. Albumin Creatinine Ratio, Ur <29 1 - 29 mg/g [facility] Urine 02/28/2022 8:57 AM CDT 02/28/2022 1:[address] Montejo MD LAB URINE ORDERABLES Final Resu lt Performing Organization Address [facility]/ZIP Co de Phone Number [facility] [employer] [address] * Hepatitis panel, acute (09/07/2021 4:28 AM CDT) Pathologist [facility] Hep A IgM Nonreactive Nonreactive [facility] Comment: Interpretive Data: If Hep A IgM Ab is reported as Equivocal, a new sample should be drawn in two weeks for testing. Current interpretive data was last revised on 20. Hep B core IgM Nonreactive Nonreactive [facility] Comment: Interpretive Data If HepB Core IgM Ab is reported as Equivocal, a new sample should be drawn in two weeks for testing. Current interpretive data was last revised on 20. Hep C Ab Nonreactive Nonreactive [facility] Comment:Antibodies to HCV no t detected. Does NOT exclude the possibility of recent exposure to HCV. HepBsAg Nonreactive Nonreactive [facility] Blood 09/07/2021 4:28 AM CDT 09/07/2021 4:44 AM CDT Anaid Kruse MD LAB MICROBIOL OGY - GENERAL ORDERABLES Edited Result - Final Performing Organization Address [facility] Co de Phone Number [facility] [employer] [address] * PSA screen (02/04/2017 8:36 AM CDT) PSA-Total 0.7 0.1 - 4.0 ng/mL [facility] Blood specimen (specimen) 02/04/2017 8:36 AM CDT 02/04/2017 9:05 AM CDT Josué Del Valle MD PhD LAB BLOOD ORDERABLES Fin al Result Performing Organization Address City/[facility]/ZIP Co de Phone Number [facility] [place] [employer] [place] [address] from Last 3 Months or Most Recently Relevant to Health Maintenance Additional Health Concerns Infection Onset 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 Insurance MEDICARE [employer] MEDICARE SOL[employer]IONS [facility] MEDICARE SOLUTIONS MEDICARE SOLUTIONS IDPA Advance Directives For more information, please contact: [phone] * Full Code (Latest Code Status on File) Date Activated Date Inactivated Comments 11/28/2024 1:11 PM 12/01/2024 7:34 PM * Full Code Date Activated Date Inactivated Comments 11/16/2024 3:43 PM 11/18/2024 6:47 PM * Full Code Date Activated Date Inactivated Comments 11/16/2024 2:30 AM 11/16/2024 3:43 PM * Full Code Date Activated Date Inactivated Comments 07/23/2024 11:09 PM 08/02/2024 3:41 PM * Full Code Date Activated Date Inactivated Comments 07/15/2024 1:59 AM 07/17/2024 6:22 PM Care Teams Steak Tenderizer Machine Relationship Specialty Start Date End Date Kirt Lindsay DO PCP - General Internal Medicine 02/02/21 Josué Del Valle MD PhD Medical Oncologist/[facility] Medical Oncology 08/26/19 Cal Carranza DO [address] [address] Button Clamper Internal Medicine 06/12/23 Halie Khan MD [address] [facility] [address] [address] Software Development Test Engineer Critical Care Med 06/12/23 Wilfred Kinsey MD [address] [address] Consulting Physician Gastroenterology 03/02/24
--- OUTSIDE RECORDS SUMMARY | 2024-12-15 16:51 | XMS_ITS | Encounter Summary ---
Author Organization [facility] Address [address] [place] [address] Phone Care Team Providers Care Foundation Stage Teacher Name Role Phone Josué Del Valle MD PhD Unavailable [phone] Kirt Lindsay DO Primary Care Provider [phone] Cal Carranza DO Unavailable [phone] Halie Khan MD Unavailable [phone] Wilfred Kinsey MD Unavailable Encounter Details Date Type Department Care Team (Late st Contact Info) Description 03/06/2024 Telephone [facility] Oncology [address] [facility] Advanced Medicine 7th [place] [address] Irina Conrad Social History Tobacco Use Types Packs/Day Years Used Date Smoking Tobacco: Some Days Cigarettes 0.5 40 Started: 1985 Smokeless Tobacco: Never Comments:pt states tried to quit [facility] Utilities Answer Date Recorded In the past [...] often do you attend chur ch or voodoo services? 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 Gender Identity Not on file Sexual [...] documented as of this encounter Care Teams Foundation Stage Teacher Relationship Specialty Start Date End Date Kirt Lindsay DO PCP - General Internal Medicine 02/02/21 Josué Del Valle MD PhD Medical Oncologist/Network Architect Medical Oncology 08/26/19 Cal Carranza DO [address] [place] [address] Senior Buyer Planner Internal Medicine 06/12/23 Halie Khan MD [address] [facility] [address] [place] [address] Cinder Snapper Critical Care Med 06/12/23 Wilfred Kinsey MD [address] [address] Consulting Physician Gastroenterology 03/02/24 documented as of this encounter
--- OUTSIDE RECORDS SUMMARY | 2024-12-15 16:51 | XMS_ITS | Encounter Summary ---
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 Repairer Name Role Phone Kirt Lindsay DO Primary Care Provider [phone] Josué Del Valle MD PhD Unavailable [phone] Halie Khan MD Primary Care Provider [phone] Kirt Lindsay DO Primary Care Provider [phone] Tay Charlton MD Unavailable [phone] Halie Khan MD Unavailable [phone] StarksAnt goldman MD Unavailable [phone] Dillon Calreed Dorado DO Unavailable [phone] Halie Khan MD Unavailable [phone] Wilfred Kinsey MD Unavailable Encounter Details Date [...] on file 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 Lissy Johnson RN +AFB stain 06/17/2024 06/17/2024 06/18/2024 10:45 AM CDT C. 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 07/23/2024 07/24/2024 07/24/2024 4:49 AM CDT documented as of this encounter Care Teams Forge Shop Machine Repairer Relationship Specialty Start Date End Date Kirt Lindsay DO PCP - General 05/02/17 11/22/20 Halie Khan MD [address] [address] PCP - General Critical Care Med 11/23/20 02/01/21 Kirt Lindsay DO PCP - General Internal Medicine 02/02/21 Josué Del Valle MD PhD Medical Oncologist/Body Engineer Medical Oncology 08/26/19 Tay Charlton MD [address] [address] Consulting Physician Gastroenterology 12/03/21 06/11/23 Halie Khan MD [address] [address] Consulting Physician Pulmonary Disease 12/12/21 3 Ant Starks MD [address] [address] Consulting Physician Transplant Hepatology 01/12/22 Cal Carranza DO [address] [address] Emblem Drawer In Internal Medicine 06/12/23 Halie Khan MD [address] [facility] [address] [place] [address] Spraying Machine Operator Critical Care Med 06/12/23 Wilfred Kinsey MD [address] [facility] [address] [place] [address] Consulting Physician Gastroenterology 03/02/24 documented as of this encounter
--- OUTSIDE RECORDS SUMMARY | 2024-12-15 16:51 | XMS_ITS | Referral Summary ---
Author Organization [facility] Address [address] [place] [address] Care Team Providers Care Yardage Control Operator Forming Name Role Phone Josué Del Valle MD PhD Unavailable [phone] Kirt Lindsay DO Primary Care Provider [phone] Cal Carranza DO Unavailable [phone] Halie Khan MD Unavailable [phone] Wilfred Kinsey MD Unavailable Encounters Date Type Department Care Team Description 12/11/19 25 Telephone [facility] Infectious Diseases [address] [facility] [place] [address] Page Marsh 12/09/19 25 Telephone [facility] Gastroenterology [address] 12th [place] [address] [place] [address] Genna Hemphill, BECKI 12/02/19 25 Telephone [facility] Bone Marrow Transplant [address] [facility] [address] 6 [place] [phone] Josué Del Valle MD PhD 12/02/19 25 Telephone [facility] Infectious Diseases [address] [facility] [address] [place] [address] Elisa Molina RN Rescheule missed October ID appt 11/28/19 12:35 PM CLINICAL INFORMATICS PHYSICIAN - 12/01/19 3:15 PM CLINICAL INFORMATICS PHYSICIAN Hospital Encounter [address] [address] Josué Del Valle MD PhD Juan A Chanel DO AML s/p Allo SCT in 2008 (Primary Dx) Discharge Disposition: Discharge to home or self care 11/24/19 25 Documentation Bone Marrow Transplant Josué Diego MD PhD 11/19/19 Telephone [facility] Bone Marrow Transplant [address] [place] [phone] Josué Del Valle MD PhD 11/15/20 11:27 PM CLINICAL INFORMATICS PHYSICIAN - 11/18/19 2:47 PM CLINICAL INFORMATICS PHYSICIAN Hospital Encounter [address] [address] Akhil Ashley MD Dipersio, John F., MD PhD Cruz Redding MD PhD Food impaction of esophagus, initial encounter (Primary Dx); Food bolus obstruction of intestine (HCC); Acute myeloblastic leukemia, in remission (HCC) Discharge Disposition: Discharge to home or self care 11/16/20 4:10 PM CLINICAL INFORMATICS PHYSICIAN Anesthesia Event [facility] [address] [place] [phone] Fermin Jiang MD Dubois, Ashley Michelle, CRNA 11/16/20 3:55 PM CLINICAL INFORMATICS PHYSICIAN - 11/16/20 24 4:20 PM CLINICAL INFORMATICS PHYSICIAN Surgery [facility] [address] [place] [phone] Hany Martinez MD ESOPHAGOGASTRODUODENOSCOPY WITH REMOVAL FOREIGN BODY 11/16/20 24 Orders Only [facility] Bone Marrow Transplant [facility] [address] [phone] Josué Del Valle MD PhD AML s/p Allo SCT in 2008 (Primary Dx) 11/12/20 24 Telephone [facility] Infectious Diseases [address] [place] [address] [place] [address] Anjana Waller LCSW 11/03/20 24 Telephone [facility] Bone Marrow Transplant [address] [facility] [address] [place] [address] Josué Del Valle MD PhD 11/02/20 24 Telephone [facility] Bone Marrow Transplant [address] [facility] [address] [place] [address] Josué Del Valle MD PhD 10/30/20 24 Telephone [facility] Endocrinology Metabolism and Lipid [address] [facility] 13[address] [place] [address] [place] [address] Bela Orellana RN Follow-up from Last 3 Months Allergies Active Allergy [...] flash glucose scanning reader (FreeStyle Evaristo 2 Datto) [facility] Use to test blood glucose continuously 1 [...] immediate-release capsuleIndications:Acu te myeloblastic leukemia, in remission (HCC) [...] hyperglycemia, with long-term current use of insulin (HCC),Febvf-watsdl-pgo t disease (HCC),H/O allogeneic bone marrow transplant (HCC),Pure hypercholesterolemia TAKE ONE TABLET (40MG) BY MOUTH DAILY AT 5 PM LAST REFILL UNTIL SEEN 30 tablet 11 2023 Active mycophenolate mofetil (CELLCEPT) 500 mg tabletIndications:Haim q-zochju-awtz disease, unspecified (HCC),Acute myeloblastic leukemia, in remission (HCC) TAKE TWO TABLETS BY MOUTH TWICE DAILY 180 tablet 2023 Active INV-[facility] clofazimine, LAMPRENE, () 50 mg capsule capsule Take 2 capsules [...] CAPSULE BY MOUTH FOUR TIMES DAILY @ [id number] M 120 capsule 11 11/18 Discontinued ondansetron [...] Inpatient Care Coordination Overview Diagnosis AML Floor [address] Treatment Plan Clinical Trial Reason for Admission Food impaction of esophagus Transplant/IEC Planning BMT/IEC Plan S/p sib allo 11/09/2009- gvhd to eyes HLA typing/IDMs Insurance Approvals/Issues Discharge Planning Anticipated Discharge Date 08/03 Patient Education Completed Issue to be Resolved Before Discharge Discharge Disposition Home Requests Sent to Case Management and/or Medical Assistants CM: VANITA for IV amicasin Post-Discharge Follow-Up Living Situation/Distance from [facility] [place] (local) Caregiver Lab/Transfusion Frequency Phone: Fax: Venous Access & Care peripheral Local Oncologist Contact Phone: Fax: Post-Discharge Office Visit (H30) JFD 12/09 w/ RN MILITARY Jame Miscellaneous Notes: Problem Noted Date Diagnosed Date Severe protein-calorie malnutrition (CMS/HCC) Assessment & Plan (11/30/2024 8:14 AM CLINICAL INFORMATICS PHYSICIAN): Diagnosed by RD per ASPEN criteria. Malnutrition can delay patient's recover from his infection. 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 On triple regimen recommended by ID. 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 CAD (coronary artery disease) 11/16/2024 Assessment & Plan (11/28/2024 1:53 PM CLINICAL INFORMATICS PHYSICIAN): Hx of STEMI s/p PCI to RCA 2022 -Continue home plavix 75 mg daily, atorvastatin Assessment & Plan (11/18/2024 10:42 AM CLINICAL INFORMATICS PHYSICIAN): S/p PCI to RCA in 2022 -cont [...] for 4d of worsening SOB. Presented to [facility] ED 07/19 for SOB and treated for COPD exac with pred course. Presented to [facility] on 07/21 for worsening SOB. CXR and [...] 06/19/2024 Assessment & Plan (11/17/2024 12:22 PM CLINICAL INFORMATICS PHYSICIAN): Follows with ID; last seen in clinic [...] now with expectation of submitting this to [place] [facility] on ~07/13. Beginning empiric therapy [...] 06/16/2024 Assessment & Plan (11/17/2024 12:22 PM CLINICAL INFORMATICS PHYSICIAN): RD following Assessment & Plan (07/24/2024 1:02 [...] 06/15/2024 Assessment & Plan (11/28/2024 4:11 PM CLINICAL INFORMATICS PHYSICIAN): Last PFT 08/15/23: FEV1 35% predicted. Residual [...] 02/20/2024 Assessment & Plan (11/28/2024 4:10 PM CLINICAL INFORMATICS PHYSICIAN): Admitted recently due to food stuck at chest. EGD 11/16 showed food in middle 3rd of esophagus, stasis esophagitis in the mid esophagus. 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 -Continue carafate 1g bid, PPI bid. -Repeat EGD 3 months from 11/17 Assessment & Plan (11/18/2024 10:43 AM CLINICAL INFORMATICS PHYSICIAN): After eating chicken/spaghetti on 11/14 felt pressure/stuck [...] 02/13/2022 Assessment & Plan (12/01/2024 12:17 PM CLINICAL INFORMATICS PHYSICIAN): Patient reports symptom of chest tightness. CT at OSH showed new infiltrate at left upper lobe. Has know cavitary lung lesion from July. Previously on amikacin but was held due to elevated creatinine. 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 May have some component [...] disease) Assessment & Plan (11/17/2024 12:17 PM CLINICAL INFORMATICS PHYSICIAN): He has Ventolin inhaler, Trelegy inhaler, albuterol inhaler, and Singulair 10 a day. On 3L oxygen at home Biliary sludge 12/20/2021 Overview (12/20/2021): Added automatically from request for surgery [id number] Other osteoporosis without current pathological fracture 11/23/2021 Encounter for removal of biliary stent Overview (10/03/2021): Added automatically from request for surgery [id number] Elevated LFTs 09/08/2021 Assessment & Plan (09/10/2021 [...] -history of DVT 2012, 2018, PE in 2013 -hold Xarelto due to GI bleed Abdominal pain 09/07/2021 Overview (09/07/2021): Added automatically from request for surgery [id number] Assessment & Plan (07/25/2024 12:01 PM CDT): - Recent hx pancreatitis admission without obvious source. Pain was slowly recurring in the last few days. Lipase was WNL at LFTs wnl at OSH and wnl on repeat here. Improving. - Pain control. - Tolerating mechanical soft diet Upper GI bleed 09/07/2021 Overview (09/07/2021): Added automatically from request for surgery [id number] Assessment & Plan (09/10/2021 9:18 AM CDT): [...] (03/30/2021): Added automatically from request for surgery [id number] Assessment & Plan (08/09/2021 10:27 AM CDT): [...] (06/16-06/20) Assessment & Plan (11/26/2019 10:45 AM CLINICAL INFORMATICS PHYSICIAN): POA. Possibly community-acquired and/or 2/[address] Strep pneumoniae pos sputum cx. See SOB problem. Shortness of breath 11/20/2019 Assessment & Plan (11/27/2019 12:14 PM CLINICAL INFORMATICS PHYSICIAN): Concern for poss GVHD and/or poss COPD [...] Walking O2 assessment CHF (congestive heart failure) ([facility]) 020 Assessment & Plan (11/28/2024 3:54 PM CLINICAL INFORMATICS PHYSICIAN): Echo 11/24 at OSH: LVEF 40-45% wit hinferior akinesis, similar to EF in 2022, mild MR -Continue home metoprolol 12.5 mg daily, jardiance 10 mg daily Assessment & Plan (11/16/2024 3:06 AM CLINICAL INFORMATICS PHYSICIAN): Euvolemic on exam currently; no new SOB - continue metop, jardiance Assessment & Plan (07/26/2024 11:49 AM CDT): TTE 03/2024 with LVEF 50-55%. Pro BNP at OSH >30k. Last adm here 1012. Appears euvolemic. S/p Lasix at OSH and [place] [address] - repeat TTE 07/24: LVEF 30%, moderate [...] 1012 Assessment & Plan (11/28/2019 10:27 AM CLINICAL INFORMATICS PHYSICIAN): Closely monitor blood sugar to avoid hypoglycemia Assessment & Plan (11/27/2019 1:35 PM CLINICAL INFORMATICS PHYSICIAN): Closely monitor blood sugar to avoid hypoglycemia Assessment & Plan (11/26/2019 5:32 PM CLINICAL INFORMATICS PHYSICIAN): Closely monitor blood sugar to avoid hypoglycemia Assessment & Plan (11/25/2019 4:51 PM CLINICAL INFORMATICS PHYSICIAN): Closely monitor blood sugar to avoid hypoglycemia Assessment & Plan (11/24/2019 4:57 PM CLINICAL INFORMATICS PHYSICIAN): Closely monitor blood sugar to avoid hypoglycemia Assessment & Plan (11/23/2019 2:01 PM CLINICAL INFORMATICS PHYSICIAN): Closely monitor blood sugar to avoid hypoglycemia Assessment & Plan (11/24/2019 10:51 AM CLINICAL INFORMATICS PHYSICIAN): With diastolic dysfunction, new diagnosis. -Continue Lasix. [...] TID Assessment & Plan (11/20/2019 4:17 PM CLINICAL INFORMATICS PHYSICIAN): Continue gabapentin Tobacco abuse 11/20/2019 Assessment & Plan (06/16/2024 6:44 PM CDT): Encourage cessation Assessment & Plan (11/20/2019 4:18 PM CLINICAL INFORMATICS PHYSICIAN): Nicotine patch Depressed mood 11/24/2018 Assessment & Plan (11/24/2018 4:56 PM CLINICAL INFORMATICS PHYSICIAN): With feelings of depressed mood prior to [...] recommended pharm therapy. DVT (deep venous thrombosis) ([facility]) 9 Assessment & Plan (11/28/2024 1:53 PM CLINICAL INFORMATICS PHYSICIAN): Hx of PE in 2012, DVT IJ 2017 -Continue home xarelto 20 mg dialy Assessment & Plan (11/18/2024 10:42 AM CLINICAL INFORMATICS PHYSICIAN): DVT lower ext 2012, DVT IJ 2017, [...] Xeralto Assessment & Plan (11/20/2019 3:57 PM CLINICAL INFORMATICS PHYSICIAN): Continue xarelto Assessment & Plan (11/23/2018 11:32 AM CLINICAL INFORMATICS PHYSICIAN): Cont Xarelto. Sinusitis 11/22/2018 Assessment & Plan (11/24/2018 4:48 PM CLINICAL INFORMATICS PHYSICIAN): Chronic issue over last 2 months. -With [...] shows no PE-->no pneumonia. COPD with exacerbation ([facility]) 11/22/2018 Assessment & Plan (07/24/2024 1:00 PM [...] exertion Assessment & Plan (11/20/2019 4:16 PM CLINICAL INFORMATICS PHYSICIAN): Continue inhalers Assessment & Plan (11/23/2018 11:29 AM CLINICAL INFORMATICS PHYSICIAN): Continues to smoke >1 ppd. -Cont steroids at current dose. -Cont Advair diskus BID, cont albuterol inh QID. -Encourage smoking cessation. Cont nicotine patch. Cough 10/17/2018 Pure hypercholesterolemia 08/04/2018 Assessment & Plan (02/12/2022 6:02 AM CDT): - continue home dose atorvastatin 40 mg PO daily Assessment & Plan (01/15/2020 3:22 PM CLINICAL INFORMATICS PHYSICIAN): -LDL at goal -will continue atorvastatin 40 mg daily Assessment & Plan (11/28/2019 10:27 AM CLINICAL INFORMATICS PHYSICIAN): On atorvastatin 40 mg daily Assessment & Plan (11/27/2019 1:35 PM CLINICAL INFORMATICS PHYSICIAN): On atorvastatin 40 mg daily Assessment & Plan (11/26/2019 5:32 PM CLINICAL INFORMATICS PHYSICIAN): On atorvastatin 40 mg daily Assessment & Plan (11/25/2019 4:50 PM CLINICAL INFORMATICS PHYSICIAN): On atorvastatin 40 mg daily Assessment & Plan (11/24/2019 4:57 PM CLINICAL INFORMATICS PHYSICIAN): On atorvastatin 40 mg daily Assessment & Plan (11/23/2019 2:02 PM CLINICAL INFORMATICS PHYSICIAN): On atorvastatin 40 mg daily Assessment & Plan (11/20/2019 4:18 PM CLINICAL INFORMATICS PHYSICIAN): Continue statin Assessment & Plan (08/07/2019 1:35 [...] level Assessment & Plan (01/15/2020 3:22 PM CLINICAL INFORMATICS PHYSICIAN): -vitamin D levels still low, unclear compliance -will continue current regimen Assessment & Plan (11/28/2019 10:29 AM CLINICAL INFORMATICS PHYSICIAN): Last vitamin-D level low at 16. Continue vitamin D2 74894 units weekly and vitamin D3 2000 units daily Assessment & Plan (11/27/2019 1:35 PM CLINICAL INFORMATICS PHYSICIAN): Last vitamin-D level low at 16. Continue vitamin D2 44277 units weekly and vitamin D3 2000 units daily Assessment & Plan (11/26/2019 5:32 PM CLINICAL INFORMATICS PHYSICIAN): Last vitamin-D level low at 16. Continue vitamin D2 71844 units weekly and vitamin D3 2000 units daily Assessment & Plan (11/25/2019 4:51 PM CLINICAL INFORMATICS PHYSICIAN): Last vitamin-D level low at 16. Continue vitamin D2 90466 units weekly and vitamin D3 2000 units daily Assessment & Plan (11/24/2019 4:57 PM CLINICAL INFORMATICS PHYSICIAN): Last vitamin-D level low at 16. Continue vitamin D2 05386 units weekly and vitamin D3 2000 units daily Assessment & Plan (11/23/2019 2:02 PM CLINICAL INFORMATICS PHYSICIAN): Last vitamin-D level low at 16. Continue vitamin D2 20467 units weekly and vitamin D3 2000 units [...] 200805/06/2018 Assessment & Plan (11/28/2024 1:55 PM CLINICAL INFORMATICS PHYSICIAN): S/p 7+3 HIDAC consolidation * 3, decitabine maintenance on CALG 12880. Had relapse s/p AMD/MEC. 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 -OI ppx: acv, crsemba Assessment & Plan (11/18/2024 10:41 AM CLINICAL INFORMATICS PHYSICIAN): AML. S/p 7+3 and hidac consolidation x3, decitabine maintenance on CALG 80220 protocol. Had relapse s/p AMD/MEC. 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 -Last seen by Dr. Del Valle 06/12/23, in remission - acyclovir 400 t.i.d and antifungal ppx with voriconazole vs cresemba. Plan med rec w Automotive Parts Coordinator today Assessment & Plan (06/17/2024 3:28 PM CDT): Follows Dr. Bauman, last seen in clinic on 06/09/2023 -AML diagnosed in 2008 s/p 7+3 and HiDAC consolidation x3 followed by Decitabine maintenance on the CALGB 85423 protocol. -Followed by Relapsed disease, status post [...] followed by Decitabine maintenance on the CALGB 92709 protocol. Followed by Relapsed disease, status post alloSCT sister / match D): 11/09/2009. 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 voriconazole 200 b.i.d Assessment & Plan (09/10/2021 9:20 AM CDT): -S/p Busulfan and Cytoxan on the [facility] allogeneic study with his sister, 08/27 match; with day 0 on 11/09/2009??after induction with 7+3 and HiDAC consolidation x3.??Followed by??Decitabine maintenance on the CALGB 62124 protocol??and relapsed disease, status post AMD/MEC. -??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Most recent BMBx in our records is from 12/12/2017 with neg path and flow -OI prophylaxis, acyclovir Assessment & Plan (08/17/2021 3:45 PM CDT): S/p Busulfan and Cytoxan on the [facility] allogeneic study with his sister, 08/27 match; with day 0 on 11/09/2009 after induction with 7+3 and HiDAC consolidation x3. Followed by Decitabine maintenance on the CALGB 58492 protocol and relapsed disease, status post AMD/MEC. 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 -??Relapsed disease,??status post an allogeneic transplant with busulfan and Cytoxan on the [facility] allogeneic study with his sister, 08/27 match; with day 0 on 11/09/2009.?? - Currently in remission. Follows with Dr. Del Valle - On tacro, cellcept - OI ppx: Cont acyclovir. Added vori and bactrim (pt stated he was no longer taking at home). Assessment & Plan (11/23/2018 11:24 AM CLINICAL INFORMATICS PHYSICIAN): -s/p sibling allo SCT on 11/09/09, now in CR with no e/o recurrence. 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 -Cont OI ppx with Bactrim, acyclovir. Type 2 diabetes mellitus 05/06/2018 Assessment & Plan (11/28/2024 1:56 PM CLINICAL INFORMATICS PHYSICIAN): Last A1c 6.0 on 11/17/24 -SSI Assessment & Plan (11/18/2024 10:43 AM CLINICAL INFORMATICS PHYSICIAN): On lantus/humalog at home (he reports taking [...] steroids Assessment & Plan (01/15/2020 3:24 PM CLINICAL INFORMATICS PHYSICIAN): -poorly controlled, exacerbated by prednisone use -Hgb [...] goal Assessment & Plan (11/28/2019 10:29 AM CLINICAL INFORMATICS PHYSICIAN): Patient has uncontrolled type 2 diabetes with [...] education. Assessment & Plan (11/27/2019 1:35 PM CLINICAL INFORMATICS PHYSICIAN): Patient has uncontrolled type 2 diabetes with [...] education. Assessment & Plan (11/26/2019 5:32 PM CLINICAL INFORMATICS PHYSICIAN): Patient has uncontrolled type 2 diabetes with [...] here. Assessment & Plan (11/25/2019 4:50 PM CLINICAL INFORMATICS PHYSICIAN): Patient has uncontrolled type 2 diabetes with [...] here. Assessment & Plan (11/24/2019 4:57 PM CLINICAL INFORMATICS PHYSICIAN): Patient has uncontrolled type 2 diabetes with [...] here. Assessment & Plan (11/23/2019 2:01 PM CLINICAL INFORMATICS PHYSICIAN): Patient has uncontrolled type 2 diabetes with [...] here. Assessment & Plan (11/28/2019 9:33 AM CLINICAL INFORMATICS PHYSICIAN): On basaglar 30 units AM and novolog [...] goal Assessment & Plan (11/24/2018 4:59 PM CLINICAL INFORMATICS PHYSICIAN): -Poorly controlled, recently stopped checking glucose as [...] needles and sent e-script to [facility] in [place] on 11/24. Pt has script for glucose [...] takes acyclovir and voriconazole for medical ppx Fnehj-yxuxdf-rosk disease 07/08/2012 Assessment & Plan (11/30/2024 3:25 PM CLINICAL INFORMATICS PHYSICIAN): Probably missed 1-2 doses of tacrolimus and [...] daily Assessment & Plan (11/28/2019 10:27 AM CLINICAL INFORMATICS PHYSICIAN): Prednisone decreased to 20 mg daily Assessment & Plan (11/27/2019 1:32 PM CLINICAL INFORMATICS PHYSICIAN): Prednisone decreased to 20 mg daily Assessment & Plan (11/26/2019 5:31 PM CLINICAL INFORMATICS PHYSICIAN): Plan to taper prednisone to 20 mg daily Assessment & Plan (11/25/2019 4:49 PM CLINICAL INFORMATICS PHYSICIAN): He is on prednisone 20 mg BID Assessment & Plan (11/24/2019 4:54 PM CLINICAL INFORMATICS PHYSICIAN): He is on prednisone 20 mg BID Assessment & Plan (11/23/2019 2:01 PM CLINICAL INFORMATICS PHYSICIAN): Starting on prednisone 20 twice daily today Assessment & Plan (11/27/2019 12:13 PM CLINICAL INFORMATICS PHYSICIAN): Continue cellcept 1 g BID and tacrolimus??0.5 [...] 3x/weekly Assessment & Plan (11/24/2018 11:50 AM CLINICAL INFORMATICS PHYSICIAN): cGVHD of eyes, mouth, 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 -Cont pred 10 mg BID, MMF 1g BID, tacrolimus 0.5 mg QOD. -F/u tac trough (due 1/8 AM). Osteopenia 11/27/2011 Assessment & Plan (01/15/2020 3:23 PM CLINICAL INFORMATICS PHYSICIAN): -DEXA scan done 07/2019 revealed stable BMD -will continue vitamin D supplementation and dietary calcium Assessment & Plan (11/20/2019 3:55 PM CLINICAL INFORMATICS PHYSICIAN): Continue home vitamin D and dietary calcium [...] states tried to quit; smoking 5 cigs/wk [facility] Utilities Answer Date Recorded In [...] often do you attend chur ch or mormonism services? Never 11/30/2024 Do you belong to [...] any time in the past 12 m [facility], were you homeless or living in a fpc (including now)? No 11/30/2024 Personal Safety Answer Date Recorded Have you ever been in or are you currently in a harmful physical or emotional relationship or is someone making you feel afraid or unsafe? Denies 11/28/2024 Sex and Gender Information Value Date Recorded Sex Assigned at Not on file Legal Sex Male 10:48 AM CLINICAL INFORMATICS PHYSICIAN Gender Identity Not on file Sexual Orientation Not on file Last Filed Vital Signs Vital Sign Reading Time Taken Comments Blood Pressure 91/57 12/01/2024 12:50 PM CLINICAL INFORMATICS PHYSICIAN Pulse 62 12/01/2024 12:50 PM CLINICAL INFORMATICS PHYSICIAN Temperature 36.3 ??C (97.3 ??F) 12/01/2024 12:[address] Respiratory Rate 16 12/01/2024 12:50 PM CLINICAL INFORMATICS PHYSICIAN Oxygen Saturation 99% 12/01/2024 12:50 PM CLINICAL INFORMATICS PHYSICIAN Inhaled Oxygen Concentration - - Weight 59.5 kg (131 lb 2.8 oz) 11/28/2024 12:35 PM CLINICAL INFORMATICS PHYSICIAN Height 180.3 cm (5' 11 ) 11/28/2024 12:35 PM CLINICAL INFORMATICS PHYSICIAN Body Mass Index 18.3 11/28/2024 12:35 PM CLINICAL INFORMATICS PHYSICIAN Plan of Treatment Not on file Medical Devices Implanted Type Area Recreational Specialist Device Identifier Shelf Expiration Date Model / Serial / Lot Titanium Maynor Bone Left: Leg Description:Titanium maynor in l leg from 2001 [employer]SW [employer] [id number].170 Acrysof Iq Natural Stableforce Acrysert 6mm 13mm 1 Piece Foldable - [id number] - [id number] Implanted:Qty: 1 on 05/12/2021 by Ravi Hughes MD at [facility] Lens Right: Lens [employer] [id number] 09/13/2025 [id number].17 0 / [id number] / [employer] [id number].170 Acrysof Iq Natural Stableforce Acrysert 6mm 13mm 1 Piece Foldable - [id number] - [id number] Implanted:Qty: 1 on 08/01/2021 by Ravi Hughes MD at [facility] Lens Left: Eye [employer] [id number] 10/05/2025 SN60WF.17 0 / [id number] / 0 Explanted Type Area Recreational Specialist Device Identifier Shelf Expiration Date Model / Serial / Lot [employer] Jasmin [id number] Advanix 7fr 5cm Temporary Rapid Exchange [place] Stent - [id number] Implanted:Qty: 1 on 09/07/2021 by Tay Charlton MD at [facility] Explanted:Qty: 1 on 11/14/2021 by Tay Charlton MD at [facility] Stent N/A: Bile Duct [employer] Jasmin 01/11/2023 [id number] / / [id number] [employer] [id number] Flexi-Stent 5fr 9cm Small Pigtail Flexible .035in Stent - [id number] Implanted:Qty: 1 on 09/07/2021 by Tay Charlton MD at [facility] Explanted:Qty: 1 on 11/14/2021 by Tay Charlton MD at [facility] Stent N/A: Pancreas [employer] 06/17/2026 [id number] / / [id number] 3 Description:PD stent not pre sent during this case Procedures Procedure Name Priority Date/Time Associated Diagnosis Comments POCT GLUCOSE DEVICE Routine 12/01/2024 12:16 PM CLINICAL INFORMATICS PHYSICIAN POCT GLUCOSE DEVICE Routine 12/01/2024 8:16 AM CLINICAL INFORMATICS PHYSICIAN EGFR Routine 12/01/2024 4:28 AM CLINICAL INFORMATICS PHYSICIAN MANUAL DIFFERENTIAL Routine 12/01/2024 4:28 AM CLINICAL INFORMATICS PHYSICIAN CBC WITHOUT DIFFERENTIAL Routine 025 4:28 AM CLINICAL INFORMATICS PHYSICIAN BASIC METABOLIC PANEL Routine 12/01/2024 4:28 AM CLINICAL INFORMATICS PHYSICIAN PHOSPHORUS Routine 12/01/2024 4:28 AM CLINICAL INFORMATICS PHYSICIAN MAGNESIUM Routine 12/01/2024 4:28 AM CLINICAL INFORMATICS PHYSICIAN BMT CBC Routine 12/01/2024 4:28 AM CLINICAL INFORMATICS PHYSICIAN POCT GLUCOSE DEVICE Routine 11/30/2024 8:47 PM CLINICAL INFORMATICS PHYSICIAN POCT GLUCOSE DEVICE Routine 11/30/2024 4:47 [address] [employer] [address]ICIAN [address] BODY OUTSIDE CONSULT Routine 11/30/19 25 2:25 PM CLINICAL INFORMATICS PHYSICIAN POCT GLUCOSE DEVICE Routine 11/30/2024 11:55 AM CLINICAL INFORMATICS PHYSICIAN TACROLIMUS LEVEL, TROUGH Timed 025 8:54 AM CLINICAL INFORMATICS PHYSICIAN POCT GLUCOSE DEVICE Routine 11/30/2024 8:37 AM CLINICAL INFORMATICS PHYSICIAN EGFR Routine 11/30/2024 4:13 AM CLINICAL INFORMATICS PHYSICIAN MANUAL DIFFERENTIAL Routine 11/30/2024 4:13 AM CLINICAL INFORMATICS PHYSICIAN CBC WITHOUT DIFFERENTIAL Routine 025 4:13 AM CLINICAL INFORMATICS PHYSICIAN PROTIME-INR Routine 11/30/2024 4:13 AM CLINICAL INFORMATICS PHYSICIAN APTT Routine 11/30/2024 4:13 AM CLINICAL INFORMATICS PHYSICIAN LACTATE DEHYDROGENASE Routine 11/30/2024 4:13 AM CLINICAL INFORMATICS PHYSICIAN URIC ACID Routine 11/30/2024 4:13 AM CLINICAL INFORMATICS PHYSICIAN COMPREHENSIVE METABOLIC PANEL Routine 4:13 AM CLINICAL INFORMATICS PHYSICIAN TYPE AND SCREEN Timed 11/30/2024 4:13 AM CLINICAL INFORMATICS PHYSICIAN PHOSPHORUS Routine 11/30/2024 4:13 AM CLINICAL INFORMATICS PHYSICIAN MAGNESIUM Routine 11/30/2024 4:13 AM CLINICAL INFORMATICS PHYSICIAN BMT CBC Routine 11/30/2024 4:13 AM CLINICAL INFORMATICS PHYSICIAN POCT GLUCOSE DEVICE Routine 11/29/2024 9:06 PM CLINICAL INFORMATICS PHYSICIAN POCT GLUCOSE DEVICE Routine 11/29/2024 5:14 PM CLINICAL INFORMATICS PHYSICIAN POCT GLUCOSE DEVICE Routine 11/29/2024 1:11 PM CLINICAL INFORMATICS PHYSICIAN POCT GLUCOSE DEVICE Routine 11/29/2024 8:13 AM CLINICAL INFORMATICS PHYSICIAN EGFR Routine 11/29/2024 12:29 AM CLINICAL INFORMATICS PHYSICIAN MANUAL DIFFERENTIAL Routine 11/29/2024 12:29 AM CLINICAL INFORMATICS PHYSICIAN CBC WITHOUT DIFFERENTIAL Routine 025 12:29 AM CLINICAL INFORMATICS PHYSICIAN BASIC METABOLIC PANEL Routine 11/29/2024 12:29 AM CLINICAL INFORMATICS PHYSICIAN PHOSPHORUS Routine 11/29/2024 12:29 AM CLINICAL INFORMATICS PHYSICIAN MAGNESIUM Routine 11/29/2024 12:29 AM CLINICAL INFORMATICS PHYSICIAN BMT CBC Routine 11/29/2024 12:29 AM CLINICAL INFORMATICS PHYSICIAN POCT GLUCOSE DEVICE Routine 11/28/2024 9:30 PM CLINICAL INFORMATICS PHYSICIAN POCT GLUCOSE DEVICE Routine 11/28/2024 5:09 PM CLINICAL INFORMATICS PHYSICIAN ECG 12-LEAD STAT 11/28/2024 1:47 PM CLINICAL INFORMATICS PHYSICIAN EGFR STAT 11/28/2024 1:40 PM CLINICAL INFORMATICS PHYSICIAN MANUAL DIFFERENTIAL STAT 11/28/2024 1:40 PM CLINICAL INFORMATICS PHYSICIAN CBC WITHOUT DIFFERENTIAL STAT 025 1:40 PM CLINICAL INFORMATICS PHYSICIAN TYPE AND SCREEN STAT 11/28/2024 1:40 PM CLINICAL INFORMATICS PHYSICIAN URIC ACID STAT 11/28/2024 1:40 PM CLINICAL INFORMATICS PHYSICIAN LACTATE DEHYDROGENASE STAT 11/28/2024 1:40 PM CLINICAL INFORMATICS PHYSICIAN PHOSPHORUS STAT 11/28/2024 1:40 PM CLINICAL INFORMATICS PHYSICIAN MAGNESIUM STAT 11/28/2024 1:40 PM CLINICAL INFORMATICS PHYSICIAN COMPREHENSIVE METABOLIC PANEL STAT 1:40 PM CLINICAL INFORMATICS PHYSICIAN BMT CBC STAT 11/28/2024 1:40 PM CLINICAL INFORMATICS PHYSICIAN FIBRINOGEN STAT 11/28/2024 1:32 PM CLINICAL INFORMATICS PHYSICIAN APTT STAT 11/28/2024 1:32 PM CLINICAL INFORMATICS PHYSICIAN PROTIME-INR STAT 11/28/2024 1:32 PM CLINICAL INFORMATICS PHYSICIAN POCT GLUCOSE DEVICE Routine 11/18/2024 11:20 AM CLINICAL INFORMATICS PHYSICIAN POCT GLUCOSE DEVICE Routine 11/18/2024 7:30 AM CLINICAL INFORMATICS PHYSICIAN POCT GLUCOSE DEVICE Routine 11/18/2024 4:25 AM CLINICAL INFORMATICS PHYSICIAN EGFR Routine 11/18/2024 2:38 AM CLINICAL INFORMATICS PHYSICIAN MANUAL DIFFERENTIAL Routine 11/18/2024 2:38 AM CLINICAL INFORMATICS PHYSICIAN CBC WITHOUT DIFFERENTIAL Routine 2:38 AM CLINICAL INFORMATICS PHYSICIAN BASIC METABOLIC PANEL Routine 11/18/2024 2:38 AM CLINICAL INFORMATICS PHYSICIAN PHOSPHORUS Routine 11/18/2024 2:38 AM CLINICAL INFORMATICS PHYSICIAN MAGNESIUM Routine 11/18/2024 2:38 AM CLINICAL INFORMATICS PHYSICIAN BMT CBC Routine 11/18/2024 2:38 AM CLINICAL INFORMATICS PHYSICIAN POCT GLUCOSE DEVICE Routine 11/18/2024 12:47 AM CLINICAL INFORMATICS PHYSICIAN POCT GLUCOSE DEVICE Routine 11/17/2024 8:11 PM CLINICAL INFORMATICS PHYSICIAN POCT GLUCOSE DEVICE Routine 11/17/2024 5:32 PM CLINICAL INFORMATICS PHYSICIAN POCT GLUCOSE DEVICE Routine 11/17/2024 12:03 PM CLINICAL INFORMATICS PHYSICIAN POCT GLUCOSE DEVICE Routine 11/17/2024 11:14 AM CLINICAL INFORMATICS PHYSICIAN POCT GLUCOSE DEVICE Routine 11/17/2024 7:19 AM CLINICAL INFORMATICS PHYSICIAN POCT GLUCOSE DEVICE Routine 11/17/2024 4:32 AM CLINICAL INFORMATICS PHYSICIAN POCT GLUCOSE DEVICE Routine 11/17/2024 12:33 AM CLINICAL INFORMATICS PHYSICIAN HEMOGLOBIN A1C Routine 11/17/2024 12:31 AM CLINICAL INFORMATICS PHYSICIAN URIC ACID Routine 11/17/2024 12:31 AM CLINICAL INFORMATICS PHYSICIAN EGFR Routine 11/17/2024 12:31 AM CLINICAL INFORMATICS PHYSICIAN LACTATE DEHYDROGENASE Routine 11/17/2024 12:31 AM CLINICAL INFORMATICS PHYSICIAN MANUAL DIFFERENTIAL Routine 11/17/2024 12:31 AM CLINICAL INFORMATICS PHYSICIAN CBC WITHOUT DIFFERENTIAL Routine 024 12:31 AM CLINICAL INFORMATICS PHYSICIAN BASIC METABOLIC PANEL Routine 11/17/2024 12:31 AM CLINICAL INFORMATICS PHYSICIAN PHOSPHORUS Routine 11/17/2024 12:31 AM CLINICAL INFORMATICS PHYSICIAN MAGNESIUM Routine 11/17/2024 12:31 AM CLINICAL INFORMATICS PHYSICIAN BMT CBC Routine 11/17/2024 12:31 AM CLINICAL INFORMATICS PHYSICIAN POCT GLUCOSE DEVICE Routine 11/16/2024 8:43 PM CLINICAL INFORMATICS PHYSICIAN POCT GLUCOSE DEVICE Routine 11/16/2024 5:06 PM CLINICAL INFORMATICS PHYSICIAN SURGICAL PATHOLOGY Routine 11/16/2024 4:53 PM CLINICAL INFORMATICS PHYSICIAN Food impaction of esophagus, initial encounter ENDO ADD ON ESOPHAGOGASTRODUODENOSCOPY BIOPSY 11/16/2024 4:15 PM CLINICAL INFORMATICS PHYSICIAN Food impaction of esophagus, initial encounter ESOPHAGOGASTRODUODENOSCOPY WITH REMOVAL FOREIGN BODY 11/16/2024 4:15 PM CLINICAL INFORMATICS PHYSICIAN Food impaction of esophagus, initial encounter EGD 11/16/2024 4:05 PM CLINICAL INFORMATICS PHYSICIAN POCT GLUCOSE DEVICE Routine 11/16/2024 3:54 PM CLINICAL INFORMATICS PHYSICIAN POCT GLUCOSE DEVICE Routine 11/16/2024 11:37 [address]INICAL IN[address]ICS PHYSICIAN CT CHEST ABDOMEN W CONTRAST ED Urgent/IP Urgent 11/16/2024 10:32 AM CLINICAL INFORMATICS PHYSICIAN POCT GLUCOSE DEVICE Routine 11/16/2024 7:57 AM CLINICAL INFORMATICS PHYSICIAN POCT GLUCOSE DEVICE Routine 11/16/2024 3:55 AM CLINICAL INFORMATICS PHYSICIAN EGFR Routine 11/16/2024 3:38 AM CLINICAL INFORMATICS PHYSICIAN URIC ACID STAT 11/16/2024 3:38 AM CLINICAL INFORMATICS PHYSICIAN LACTATE DEHYDROGENASE STAT 11/16/2024 3:38 AM CLINICAL INFORMATICS PHYSICIAN PHOSPHORUS STAT 11/16/2024 3:38 AM CLINICAL INFORMATICS PHYSICIAN MAGNESIUM STAT 11/16/2024 3:38 AM CLINICAL INFORMATICS PHYSICIAN APTT Routine 11/16/2024 3:38 AM CLINICAL INFORMATICS PHYSICIAN COMPREHENSIVE METABOLIC PANEL Routine 3:38 AM CLINICAL INFORMATICS PHYSICIAN FIBRINOGEN STAT 11/16/2024 3:38 AM CLINICAL INFORMATICS PHYSICIAN TYPE AND SCREEN STAT 11/16/2024 3:38 AM CLINICAL INFORMATICS PHYSICIAN EGFR STAT 11/16/2024 12:13 AM CLINICAL INFORMATICS PHYSICIAN DIFFERENTIAL AUTO STAT 11/16/2024 12:13 AM CLINICAL INFORMATICS PHYSICIAN PROTIME-INR STAT 11/16/2024 12:13 AM CLINICAL INFORMATICS PHYSICIAN BASIC METABOLIC PANEL STAT 11/16/2024 12:13 AM CLINICAL INFORMATICS PHYSICIAN CBC WITH AUTO DIFFERENTIAL STAT 11/16 12:13 AM CLINICAL INFORMATICS PHYSICIAN POCT GLUCOSE DEVICE Routine 11/16/2024 12:12 AM CLINICAL INFORMATICS PHYSICIAN LIPID PANEL Add-On 07/14/2024 6:22 PM CDT ALBUMIN CREATININE RATIO, URINE STAT 02/28/2022 8:57 AM CDT Type 2 diabetes mellitus with hyperosmolarity without coma, with long-term current use of insulin (CMS/HCC) (HCC) Vitamin D deficiency Zuwyc-dotxvo-tssh disease (HCC) Other osteoporosis without current pathological fracture Screening for thyroid disorder HEPATITIS PANEL, ACUTE STAT 4:28 AM CDT PSA SCREEN Routine Gen Lab 02/04/2017 8:36 AM CDT from Last 3 Months or Most Recently Relevant to Health Maintenance Results * POCT glucose (12/01/2024 12:16 PM CLINICAL INFORMATICS PHYSICIAN) Glucose, POC 89 70 - 199 mg/dL Blood 12/01/2024 12:1 6 PM CLINICAL INFORMATICS PHYSICIAN 12/01/2024 12:16 PM CLINICAL INFORMATICS PHYSICIAN Josué Del Valle MD PhD LAB POCT ORDERABLES - DE VICE Final Result Performing Organization Address [facility] Co ut Phone Number [facility] [place] [address] * POCT glucose (12/01/2024 8:16 AM CLINICAL INFORMATICS PHYSICIAN) Glucose, POC 171 70 - 199 mg/dL Blood 12/01/2024 8:16 AM CLINICAL INFORMATICS PHYSICIAN 12/01/2024 8:16 AM CLINICAL INFORMATICS PHYSICIAN Josué Del Valle MD PhD LAB POCT ORDERABLES - DE VICE Final Result Performing Organization Address [facility] Phone Number [facility] [place] [address] * eGFR (12/01/2024 4:28 AM CLINICAL INFORMATICS PHYSICIAN) eGFR 74 >=60 mL/min/1. 73 m2 Comment: [...] last reviewed 2021. Blood 12/01/2024 4:28 AM CLINICAL INFORMATICS PHYSICIAN 12/01/2024 4:52 AM CLINICAL INFORMATICS PHYSICIAN us Juan A Chanel DO LAB BLOOD ORDERABLES Final Resul t [facility] Department [place] [address] * (ABNORMAL) Manual Differential (12/01/2024 4:28 AM CLINICAL INFORMATICS PHYSICIAN) Differential Manual Cells Counted 115 [facility] Neutrophil abs 5.8 1.5 - 6.5 K/cumm [facility] Imm gran abs 0.0 0.0 - 0.1 K/cumm [facility] Lymphocyte abs 3.1 0.8 - 3.3 K/cumm [facility] Monocyte abs 1.7(H) 0.2 - 0.8 K/cumm [facility] Eosinophil abs 0.2 0.0 - 0.5 K/cumm [facility] Neutrophil pct 53.9 % [facility] Comment: Interpretive Data Percent cell count reference ranges are not reported, since discordance with absolute values may lead to misinterpretation of CBC data. Current Interpretive Data was last revised on 2018. Lymphocyte pct 28.7 % [facility] Comment: Interpretive Data Percent cell count reference ranges are not reported, since discordance with absolute values may lead to misinterpretation of CBC data. Current Interpretive Data was last revised on 2018. Monocyte pct 15.7 % [facility] Comment: Interpretive Data Percent cell count reference ranges are not reported, since discordance with absolute values may lead to misinterpretation of CBC data. Current Interpretive Data was last revised on 2018. Eosinophil pct 1.7 % [facility] Comment: Interpretive Data Percent cell count reference ranges are not reported, since discordance with absolute values may lead to misinterpretation of CBC data. Current Interpretive Data was last revised on 2018. RBC morphology Present(A) [facility] Anisocytosis Marked(A) [facility] Macrocytes > 15/HPF(A) [facility] Platelet estimate Adequate [facility] Blood 12/01/2024 4:28 AM CLINICAL INFORMATICS PHYSICIAN 12/01/2024 4:52 AM CLINICAL INFORMATICS PHYSICIAN us Juan A Chanel DO LAB BLOOD ORDERABLES Final Resul t [facility] Department [place] [address] * (ABNORMAL) CBC without differential (12/01/2024 4:28 AM CLINICAL INFORMATICS PHYSICIAN) WBC 10.8(H) 3.8 - 9.9 K/cumm Hgb 10.0(L) 13.0 - 17.5 g/dL [facility] Hct 30.5(L) 38.9 - 50.3 % [facility] Plt 303 150 - 400 K/cumm [facility] MPV 9.7 9.1 - 12.3 fL [facility] RBC 2.86(L) 4.30 - 5.80 M/cumm [facility] MCV 106.6(H) 81.3 - 96.4 fL [facility] MCH 35.0(H) 27.1 - 33.3 pg [facility] MCHC 32.8 32.3 - 35.7 g/dL [facility] RDW CV 14.0 11.1 - 14.9 % [facility] RDW SD 55.2(H) 35.7 - 48.1 fL [facility] NRBC abs 0.00 0.00 - 0.01 K/cumm [facility] Blood 12/01/2024 4:28 AM CLINICAL INFORMATICS PHYSICIAN 12/01/2024 4:52 AM CLINICAL INFORMATICS PHYSICIAN [facility] LAB BLOOD ORDERABLES Final Resul t Performing Organization Address [facility] de Phone Number [facility] [place] [address] * Phosphorus (12/01/2024 4:28 AM CLINICAL INFORMATICS PHYSICIAN) Pathologist [facility] Phosphorus, pl 2.9 2.3 - 4.5 mg/dL Blood 12/01/2024 4:28 AM CLINICAL INFORMATICS PHYSICIAN 12/01/2024 4:52 AM CLINICAL INFORMATICS PHYSICIAN [facility] LAB BLOOD ORDERABLES Final Resul t Performing Organization Address [facility] de Phone Number [facility] [place] [address] * Magnesium (12/01/2024 4:28 AM CLINICAL INFORMATICS PHYSICIAN) [facility] Magnesium 2.1 1.4 - 2.5 mg/dL Blood 12/01/2024 4:28 AM CLINICAL INFORMATICS PHYSICIAN 12/01/2024 4:52 AM CLINICAL INFORMATICS PHYSICIAN [facility] LAB BLOOD ORDERABLES Final Resul t Performing Organization Address [facility] [place] [address] * (ABNORMAL) Basic metabolic panel (12/01/2024 4:28 AM CLINICAL INFORMATICS PHYSICIAN) [facility] Sodium 137 135 - 145 mmol/L Potassium, pl 4.5 3.3 - 4.9 mmol/L [facility] Chloride 101 97 - 110 mmol/L [facility] CO2 30 22 - 32 mmol/L [facility] Anion gap 6 2 - 15 mmol/L [facility] BUN 38(H) 6 - 25 mg/dL [facility] Creatinine 1.15 0.80 - 1.30 mg/dL [facility] Glucose 171 70 - 199 mg/dL [facility] [...] 2022. Calcium 9.0 8.5 - 10.3 mg/dL [facility] Blood 12/01/2024 4:28 AM CLINICAL INFORMATICS PHYSICIAN 12/01/2024 4:52 AM CLINICAL INFORMATICS PHYSICIAN Narrative [facility] - 12/01/2024 5:21 AM CLINICAL INFORMATICS PHYSICIAN Daily except Saturday and . Morning draw. us Juan A Cahnel DO LAB BLOOD ORDERABLES Final Resul t Performing Organization Address City/[facility]/ZIP Co de Phone Number [facility] [place] [address] * POCT glucose (11/30/2024 8:47 PM CLINICAL INFORMATICS PHYSICIAN) Glucose, POC 152 70 - 199 mg/dL Blood 11/30/2024 8:47 PM CLINICAL INFORMATICS PHYSICIAN 11/30/2024 8:47 PM CLINICAL INFORMATICS PHYSICIAN Josué Del Valle MD PhD LAB POCT ORDERABLES - DE VICE Final Result Performing Organization Address City/[facility]/ZIP Co de Phone Number [facility] [place] [address] * POCT glucose (11/30/2024 4:47 PM CLINICAL INFORMATICS PHYSICIAN) Glucose, POC 138 70 - 199 mg/dL Blood 11/30/2024 4:47 PM CLINICAL INFORMATICS PHYSICIAN 11/30/2024 4:47 PM CLINICAL INFORMATICS PHYSICIAN us Josué Del Valle MD PhD LAB POCT ORDERABLES - DE VICE Final Result [facility] Department [place] [address] * CT Body Outside Consult (11/30/2024 2:25 PM CLINICAL INFORMATICS PHYSICIAN) Anatomical Region Laterality Modality Body N/A Computed Tomogra phy 11/30/2024 3:50 PM CLINICAL INFORMATICS PHYSICIAN Impressions 11/30/2024 4:09 PM CLINICAL INFORMATICS PHYSICIAN 1. ??New patchy airspace opacity within the [...] images may or may not represent the [place] source data set and thus may contain changes that may lower the accuracy of this second-opinion interpretation. Dictated by: Chase Nieto MD The radiology attending physician has personally reviewed this study, and had reviewed and/or edited this written report and agrees with it. Electronically signed by: Zach Laurent M.D. Narrative 11/30/2024 4:09 PM CLINICAL INFORMATICS PHYSICIAN EXAMINATION: RADIOLOGY CONSULTATION ON OUTSIDE IMAGING STUDY STUDY INITIALLY PERFORMED: 11/23/2024 at [facility]. 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 [place] [address] * Tacrolimus level trough (11/30/2024 8:54 AM CLINICAL INFORMATICS PHYSICIAN) [facility] Tacrolimus trough <1.0 ng/mL Comment: Undetectable. ??Please verify that the correct immunosuppressant test was requested. Interpretive Data Testing performed by liquid chromatography-tandem mass spectrometry. ??Therapeutic concentrations vary depending on type of transplanted organ and time elapsed since transplant. ??Typical trough concentrations range from 5-15 ng/mL. ??This test was developed and its performance characteristics determined by the [facility] consistent with CLIA requirements. ??This test has not been cleared or approved by the [place] Food and Drug administration. ??Current interpretive data last reviewed 2020. Blood 11/30/2024 8:54 AM CLINICAL INFORMATICS PHYSICIAN 11/30/2024 9:10 AM CLINICAL INFORMATICS PHYSICIAN Juan A Chanel DO LAB BLOOD ORDERABLES Final Resul t Performing Organization Address [facility] Co de Phone Number [facility] [place] [address] * POCT glucose (11/30/2024 8:37 AM CLINICAL INFORMATICS PHYSICIAN) Glucose, POC 124 70 - 199 mg/dL Blood 11/30/2024 8:37 AM CLINICAL INFORMATICS PHYSICIAN 11/30/2024 8:37 AM CLINICAL INFORMATICS PHYSICIAN Josué Del Valle MD PhD LAB POCT ORDERABLES - DE VICE Final Result Performing Organization Address [facility] de Phone Number [facility] [place] [address] * eGFR (11/30/2024 4:13 AM CLINICAL INFORMATICS PHYSICIAN) eGFR 78 >=60 mL/min/1. 73 m2 Comment: [...] last reviewed 2021. Blood 11/30/2024 4:13 AM CLINICAL INFORMATICS PHYSICIAN 11/30/2024 4:44 AM CLINICAL INFORMATICS PHYSICIAN us Juan A Chanel DO LAB BLOOD ORDERABLES Final Resul t [facility] Department [place] [address] * (ABNORMAL) Manual Differential (11/30/2024 4:13 AM CLINICAL INFORMATICS PHYSICIAN) Differential Manual Cells Counted 117 [facility] Neutrophil abs 5.0 1.5 - 6.5 K/cumm [facility] Imm gran abs 0.0 0.0 - 0.1 K/cumm [facility] Lymphocyte abs 3.8(H) 0.8 - 3.3 K/cumm [facility] Monocyte abs 1.3(H) 0.2 - 0.8 K/cumm [facility] Eosinophil abs 0.2 0.0 - 0.5 K/cumm [facility] Neutrophil pct 48.7 % [facility] Comment: Interpretive Data Percent cell count reference ranges are not reported, since discordance with absolute values may lead to misinterpretation of CBC data. Current Interpretive Data was last revised on 2018. Lymphocyte pct 36.8 % [facility] Comment: Interpretive Data Percent cell count reference ranges are not reported, since discordance with absolute values may lead to misinterpretation of CBC data. Current Interpretive Data was last revised on 2018. Monocyte pct 12.8 % [facility] Comment: Interpretive Data Percent cell count reference ranges are not reported, since discordance with absolute values may lead to misinterpretation of CBC data. Current Interpretive Data was last revised on 2018. Eosinophil pct 1.7 % [facility] Comment: Interpretive Data Percent cell count reference ranges are not reported, since discordance with absolute values may lead to misinterpretation of CBC data. Current Interpretive Data was last revised on 2018. RBC morphology Present(A) [facility] Anisocytosis Marked(A) [facility] Macrocytes > 15/HPF(A) [facility] Platelet estimate Adequate [facility] Blood 11/30/2024 4:13 AM CLINICAL INFORMATICS PHYSICIAN 11/30/2024 4:43 AM CLINICAL INFORMATICS PHYSICIAN [employer] LAB BLOOD ORDERABLES Edited Resu lt - Final Performing Organization Address [facility] Co de Phone Number [facility] [place] [address] * (ABNORMAL) aPTT (11/30/2024 4:13 AM CLINICAL INFORMATICS PHYSICIAN) aPTT 43(H) 28 - 38 sec Comment: Interpretive Data Heparin therapeutic range: 66.0 - 100.0 seconds. Range based on correlation with therapeutic heparin activity range of 0.3 - 0.7 Units/mL. Current interpretive data was last revised on 2023. Blood 11/30/2024 4:13 AM CLINICAL INFORMATICS PHYSICIAN 11/30/2024 4:35 AM CLINICAL INFORMATICS PHYSICIAN [employer] LAB BLOOD ORDERABLES Final Resul t Performing Organization Address [facility] Co de Phone Number [facility] [place] [address] * (ABNORMAL) Protime-INR (11/30/2024 4:13 AM CLINICAL INFORMATICS PHYSICIAN) PT 15.9(H) 9.7 - 13.0 sec INR 1.46(H) 0.90 - 1.20 [facility] Comment: Interpretive data Oral anticoagulant therapeutic ranges: Venous thromboembolism prophylaxis or treatment: 2.0-3.0 CARDIOLOGY Standard range: 2.0-3.0 High-intensity range: 2.5-3.5 Refer to indication-specific guidelines for appropriate target ranges for prosthetic heart valve replacement. Current interpretive data was last revised on 2019. Blood 11/30/2024 4:13 AM CLINICAL INFORMATICS PHYSICIAN 11/30/2024 4:35 AM CLINICAL INFORMATICS PHYSICIAN Dominiquealeah Chanel DO LAB BLOOD ORDERABLES Final Resul t Performing Organization Address [facility] de Phone Number [facility] Department [place] [address] * (ABNORMAL) CBC without differential (11/30/2024 4:13 AM CLINICAL INFORMATICS PHYSICIAN) WBC 10.3(H) 3.8 - 9.9 K/cumm Hgb 10.0(L) 13.0 - 17.5 g/dL [facility] Hct 30.3(L) 38.9 - 50.3 % [facility] Plt 331 150 - 400 K/cumm [facility] MPV 10.1 9.1 - 12.3 fL [facility] RBC 2.89(L) 4.30 - 5.80 M/cumm [facility] MCV 104.8(H) 81.3 - 96.4 fL [facility] MCH 34.6(H) 27.1 - 33.3 pg [facility] MCHC 33.0 32.3 - 35.7 g/dL [facility] RDW CV 14.1 11.1 - 14.9 % [facility] RDW SD 54.3(H) 35.7 - 48.1 fL [facility] NRBC abs 0.00 0.00 - 0.01 K/cumm [facility] Blood 11/30/2024 4:13 AM CLINICAL INFORMATICS PHYSICIAN 11/30/2024 4:43 AM CLINICAL INFORMATICS PHYSICIAN Juan A Chanel DO LAB BLOOD [place] [address] * Type and screen (11/30/2024 4:13 AM CLINICAL INFORMATICS PHYSICIAN) ABO Rh A Positive Ursula, indirect Negative [facility] Blood 11/30/2024 4:13 AM CLINICAL INFORMATICS PHYSICIAN 11/30/2024 4:42 AM CLINICAL INFORMATICS PHYSICIAN Narrative [facility] - 11/30/2024 5:52 AM CLINICAL INFORMATICS PHYSICIAN Has the patient had Daratumumab or Isatuximab in the past 6 months?->Unknown Juan A Chanel DO LAB BLOOD BANK TEST ORDERABLES F inal Result Performing Organization Address [facility] [place] [address] * Uric acid (11/30/2024 4:13 AM CLINICAL INFORMATICS PHYSICIAN) Uric acid 3.4 3.0 - 8.0 mg/dL Blood 11/30/2024 4:13 AM CLINICAL INFORMATICS PHYSICIAN 11/30/2024 4:44 AM CLINICAL INFORMATICS PHYSICIAN Narrative [facility] - 11/30/2024 5:14 AM CLINICAL INFORMATICS PHYSICIAN Saturday and only. Morning draw. . us Juan A Chanel DO LAB BLOOD ORDERABLES Final Resul t Performing Organization Address [facility] de Phone Number [facility] [place] [address] * Phosphorus (11/30/2024 4:13 AM CLINICAL INFORMATICS PHYSICIAN) Phosphorus, pl 2.6 2.3 - 4.5 mg/dL Blood 11/30/2024 4:13 AM CLINICAL INFORMATICS PHYSICIAN 11/30/2024 4:44 AM CLINICAL INFORMATICS PHYSICIAN Juan A Chanel DO LAB BLOOD ORDERABLES Final Resul t Performing Organization Address [facility] de Phone Number [facility] [place] [address] * Magnesium (11/30/2024 4:13 AM CLINICAL INFORMATICS PHYSICIAN) [facility] Magnesium 2.0 1.4 - 2.5 mg/dL Blood 11/30/2024 4:13 AM CLINICAL INFORMATICS PHYSICIAN 11/30/2024 4:44 AM CLINICAL INFORMATICS PHYSICIAN [facility] Chanel LAB BLOOD ORDERABLES Final Resul t Performing Organization Address [facility] de Phone Number [facility] [place] [address] * Lactate dehydrogenase (LD) (11/30/2024 4:13 AM CLINICAL INFORMATICS PHYSICIAN) [facility] Lactate dehydrogenase (LDH) 239 100 - 250 Units/L Blood 11/30/2024 4:13 AM CLINICAL INFORMATICS PHYSICIAN 11/30/2024 4:44 AM CLINICAL INFORMATICS PHYSICIAN Narrative [facility] - 11/30/2024 5:14 AM CLINICAL INFORMATICS PHYSICIAN Saturday and only. Morning draw. [facility] LAB BLOOD ORDERABLES Final Resul t Performing Organization Address [facility] de Phone Number [facility] [place] [address] * (ABNORMAL) Comprehensive metabolic panel (11/30/2024 4:13 AM CLINICAL INFORMATICS PHYSICIAN) [facility] Sodium 137 135 - 145 mmol/L Potassium, pl 4.4 3.3 - 4.9 mmol/L [facility] Chloride 100 97 - 110 mmol/L [facility] CO2 31 22 - 32 mmol/L [facility] Anion gap 6 2 - 15 mmol/L [facility] BUN 26(H) 6 - 25 mg/dL [facility] Creatinine 1.10 0.80 - 1.30 mg/dL [facility] Glucose 154 70 - 199 mg/dL [facility] [...] 2022. Calcium 9.0 8.5 - 10.3 mg/dL [facility] Bilirubin, total 0.2 0.1 - 1.2 mg/dL [facility] Protein, pl 6.0(L) 6.5 - 8.5 g/dL [facility] Albumin 3.1(L) 3.5 - 5.0 g/dL [facility] Alk phos 132(H) 40 - 130 Units/L [facility] ALT 28 7 - 55 Units/L [facility] AST 29 10 - 50 Units/L [facility] Blood 11/30/2024 4:13 AM CLINICAL INFORMATICS PHYSICIAN 11/30/2024 4:44 AM CLINICAL INFORMATICS PHYSICIAN Narrative [facility] - 11/30/2024 5:14 AM CLINICAL INFORMATICS PHYSICIAN Saturday and only. Morning draw. us Juan A Chanel DO LAB BLOOD ORDERABLES Final Resul t Performing Organization Address City/[facility]/ZIP Co de Phone Number [facility] Department [place] [address] * POCT glucose (11/29/2024 9:06 PM CLINICAL INFORMATICS PHYSICIAN) [facility] Signature Glucose, POC 178 70 - 199 mg/dL Blood 11/29/2024 9:06 PM CLINICAL INFORMATICS PHYSICIAN 11/29/2024 9:06 PM CLINICAL INFORMATICS PHYSICIAN us Josué Del Valle MD PhD LAB POCT ORDERABLES - DE VICE Final Result Performing Organization Address City/[facility]/ZIP Co de Phone Number [facility] Department [place] [address] * POCT glucose (11/29/2024 5:14 PM CLINICAL INFORMATICS PHYSICIAN) Glucose, POC 103 70 - 199 mg/dL Blood 11/29/2024 5:14 PM CLINICAL INFORMATICS PHYSICIAN 11/29/2024 5:14 PM CLINICAL INFORMATICS PHYSICIAN Josué Del Valle MD PhD LAB POCT ORDERABLES - DE VICE Final Result Performing Organization Address City/[facility] [place] [address] * POCT glucose (11/29/2024 1:11 PM CLINICAL INFORMATICS PHYSICIAN) Glucose, POC 115 70 - 199 mg/dL Blood 11/29/2024 1:11 PM CLINICAL INFORMATICS PHYSICIAN 11/29/2024 1:11 PM CLINICAL INFORMATICS PHYSICIAN Josué Del Valle MD PhD LAB POCT ORDERABLES - DE VICE Final Result Performing Organization Address City/[facility]/[place] [address] * POCT glucose (11/29/2024 8:13 AM CLINICAL INFORMATICS PHYSICIAN) Glucose, POC 84 70 - 199 mg/dL Blood 11/29/2024 8:13 AM CLINICAL INFORMATICS PHYSICIAN 11/29/2024 8:13 AM CLINICAL INFORMATICS PHYSICIAN Josué Del Valle MD PhD LAB POCT ORDERABLES - DE VICE Final Result Performing Organization Address City/[facility] [place] [address] * eGFR (11/29/2024 12:29 AM CLINICAL INFORMATICS PHYSICIAN) eGFR >90 >=60 mL/min/1. 73 m2 Comment: [...] reviewed 2021. Blood 11/29/2024 12:2 9 AM CLINICAL INFORMATICS PHYSICIAN 11/29/2024 1:35 AM CLINICAL INFORMATICS PHYSICIAN us Juan A Chanel DO LAB BLOOD ORDERABLES Final Resul t Performing Organization Address City/State/[facility] Co de Phone Number [facility] Department [place] [address] * (ABNORMAL) Manual Differential (11/29/2024 12:29 AM CLINICAL INFORMATICS PHYSICIAN) Differential Manual Cells [facility] Neutrophil abs 4.0 1.5 - 6.5 K/cumm [facility] Imm gran abs 0.0 0.0 - 0.1 K/cumm [facility] Lymphocyte abs 3.2 0.8 - 3.3 K/cumm [facility] Monocyte abs 0.9(H) 0.2 - 0.8 K/cumm [facility] Eosinophil abs 0.2 0.0 - 0.5 K/cumm [facility] Neutrophil pct 47.8 % [facility] Comment: Interpretive Data Percent cell count reference ranges are not reported, since discordance with absolute values may lead to misinterpretation of CBC data. Current Interpretive Data was last revised on 2018. Lymphocyte pct 38.3 % [facility] Comment: Interpretive Data Percent cell count reference ranges are not reported, since discordance with absolute values may lead to misinterpretation of CBC data. Current Interpretive Data was last revised on 2018. Monocyte pct 11.3 % [facility] Comment: Interpretive Data Percent cell count reference ranges are not reported, since discordance with absolute values may lead to misinterpretation of CBC data. Current Interpretive Data was last revised on 2018. Eosinophil pct 2.6 % [facility] Comment: Interpretive Data Percent cell count reference ranges are not reported, since discordance with absolute values may lead to misinterpretation of CBC data. Current Interpretive Data was last revised on 2018. RBC morphology Present(A) [facility] Anisocytosis Marked(A) [facility] Macrocytes > 15/HPF(A) [facility] Platelet estimate Adequate [facility] Blood 11/29/2024 12:2 9 AM CLINICAL INFORMATICS PHYSICIAN 11/29/2024 1:32 AM CLINICAL INFORMATICS PHYSICIAN us Juan A Chanel DO LAB BLOOD ORDERABLES Edited Resu lt - Final [facility] Department [place] [address] * (ABNORMAL) CBC without differential (11/29/2024 12:29 AM CLINICAL INFORMATICS PHYSICIAN) WBC 8.3 3.8 - 9.9 K/cumm Hgb 9.5(L) 13.0 - 17.5 g/dL [facility] Hct 29.5(L) 38.9 - 50.3 % [facility] Plt 376 150 - 400 K/cumm [facility] MPV 10.4 9.1 - 12.3 fL [facility] RBC 2.78(L) 4.30 - 5.80 M/cumm [facility] MCV 106.1(H) 81.3 - 96.4 fL [facility] MCH 34.2(H) 27.1 - 33.3 pg [facility] MCHC 32.2(L) 32.3 - 35.7 g/dL [facility] RDW CV 14.2 11.1 - 14.9 % [facility] RDW SD 55.5(H) 35.7 - 48.1 fL [facility] NRBC abs 0.04(H) 0.00 - 0.01 K/cumm [facility] Blood 11/29/2024 12:2 9 AM CLINICAL INFORMATICS PHYSICIAN 11/29/2024 1:32 AM CLINICAL INFORMATICS PHYSICIAN Juan A Chanle DO LAB BLOOD ORDERABLES Final Resul t Performing Organization Address [facility] de Phone Number [facility] Department [place] [address] * (ABNORMAL) Phosphorus (11/29/2024 12:29 AM CLINICAL INFORMATICS PHYSICIAN) Phosphorus, pl 2.2(L) 2.3 - 4.5 mg/dL Blood 11/29/2024 12:2 9 AM CLINICAL INFORMATICS PHYSICIAN 11/29/2024 1:35 AM CLINICAL INFORMATICS PHYSICIAN Juan A Chanel DO LAB BLOOD ORDERABLES Final Resul t Performing Organization Address City/[facility] Co de Phone Number [facility] Department [place] [address] * Magnesium (11/29/2024 12:29 AM CLINICAL INFORMATICS PHYSICIAN) Magnesium 1.7 1.4 - 2.5 mg/dL Blood 11/29/2024 12:2 9 AM CLINICAL INFORMATICS PHYSICIAN 11/29/2024 1:35 AM CLINICAL INFORMATICS PHYSICIAN Juan A Chanel DO LAB BLOOD ORDERABLES Final Resul t Performing Organization Address City/[facility]/ZIP Co de Phone Number [facility] Department [place] [address] * (ABNORMAL) Basic metabolic panel (11/29/2024 12:29 AM CLINICAL INFORMATICS PHYSICIAN) Sodium 138 135 - 145 mmol/L Potassium, pl 3.7 3.3 - 4.9 mmol/L [facility] Chloride 99 97 - 110 mmol/L [facility] CO2 34(H) 22 - 32 mmol/L [facility] Anion gap 5 2 - 15 mmol/L [facility] BUN 17 6 - 25 mg/dL [facility] Creatinine 0.88 0.80 - 1.30 mg/dL [facility] Glucose 119 70 - 199 mg/dL [facility] [...] - 10.3 mg/dL [facility] Blood 11/29/2024 12:2 9 AM CLINICAL INFORMATICS PHYSICIAN 11/29/2024 1:35 AM CLINICAL INFORMATICS PHYSICIAN Narrative [facility] - 11/29/2024 1:38 AM CLINICAL INFORMATICS PHYSICIAN Daily except Saturday and . Morning draw. Juan A Chanel DO LAB BLOOD ORDERABLES Final Resul t Performing Organization Address [facility]/ZIP Co de Phone Number [facility] Daniela [facility] Department [place] [address] * (ABNORMAL) POCT glucose (11/28/2024 9:30 PM CLINICAL INFORMATICS PHYSICIAN) Glucose, POC 204(H) 70 - 199 mg/dL Blood 11/28/2024 9:30 PM CLINICAL INFORMATICS PHYSICIAN 11/28/2024 9:30 PM CLINICAL INFORMATICS PHYSICIAN us Josué Del Valle MD PhD LAB POCT ORDERABLES - DE VICE Final Result Performing Organization Address [facility] [place] [address] * POCT glucose (11/28/2024 5:09 PM CLINICAL INFORMATICS PHYSICIAN) Glucose, POC 182 70 - 199 mg/dL Blood 11/28/2024 5:09 PM CLINICAL INFORMATICS PHYSICIAN 11/28/2024 5:09 PM CLINICAL INFORMATICS PHYSICIAN us Josué Del Valle MD PhD LAB POCT ORDERABLES - DE VICE Final Result Performing Organization Address [facility] Phone Number [facility] [place] [address] * ECG 12 lead (11/28/2024 1:47 PM CLINICAL INFORMATICS PHYSICIAN) [facility] Ventricular Rate EKG/Min [address] [facility] Atrial Rate [address] [facility] WA-Interval (MSEC) [address] [facility] QRS-Interval (MSEC) [address] [facility] QT-Interval (MSEC) [address] [facility] QTc [address] [facility] P [place] [address] [facility] R [place] 88 degrees [facility] T [place] [address] [facility] Diagnosis Normal sinus rhythm Poor r wave progression associated with abnormal lead placement, obesity, pulmonary disease, anterior infarction. Borderline ECG When compared with ECG of 29-JUL-2024 09:55, ST no longer depressed in Inferior leads T wave inversion no longer evident in Inferior leads T wave inversion no longer evident in Lateral leads QT has shortened Confirmed by SOHAM WINTERS M.D ([id number]) on 11/30/2024 10:34:40 AM [facility] 11/28/2024 1:47 PM CLINICAL INFORMATICS PHYSICIAN 11/30/2024 10:34 AM CLINICAL INFORMATICS PHYSICIAN Dominiquedominga Darío DO ECG ORDERABLES Final Result [facility] * eGFR (11/28/2024 1:40 PM CLINICAL INFORMATICS PHYSICIAN) Pathologist [facility] eGFR >90 >=60 mL/min/1. 73 m2 Comment: [...] last reviewed 2021. Blood 11/28/2024 1:40 PM CLINICAL INFORMATICS PHYSICIAN 11/28/2024 1:46 PM CLINICAL INFORMATICS PHYSICIAN Dominiquedominga Darío DO LAB BLOOD ORDERABLES Final Resul t Performing Organization Address City/State/[facility] Co de Phone Number [facility] Department [place] [address] * (ABNORMAL) Manual Differential (11/28/2024 1:40 PM CLINICAL INFORMATICS PHYSICIAN) Differential Manual Cells Counted 114 [facility] Neutrophil abs 4.5 1.5 - 6.5 K/cumm [facility] Imm gran abs 0.1 0.0 - 0.1 K/cumm [facility] Lymphocyte abs 2.0 0.8 - 3.3 K/cumm [facility] Monocyte abs 0.6 0.2 - 0.8 K/cumm [facility] Eosinophil abs 0.4 0.0 - 0.5 K/cumm [facility] Neutrophil pct 58.7 % [facility] Comment: Interpretive Data Percent cell count reference ranges are not reported, since discordance with absolute values may lead to misinterpretation of CBC data. Current Interpretive Data was last revised on 2018. Lymphocyte pct 26.3 % [facility] Comment: Interpretive Data Percent cell count reference ranges are not reported, since discordance with absolute values may lead to misinterpretation of CBC data. Current Interpretive Data was last revised on 2018. Monocyte pct 7.9 % [facility] Comment: Interpretive Data Percent cell count reference ranges are not reported, since discordance with absolute values may lead to misinterpretation of CBC data. Current Interpretive Data was last revised on 2018. Eosinophil pct 5.3 % [facility] Comment: Interpretive Data Percent cell count reference ranges are not reported, since discordance with absolute values may lead to misinterpretation of CBC data. Current Interpretive Data was last revised on 2018. Myelocyte pct 1.8 % [facility] RBC morphology Present(A) [facility] Anisocytosis Slight(A) [facility] Poikilocytosis Slight(A) [facility] Macrocytes > 15/HPF(A) [facility] Platelet estimate Adequate [facility] Blood 11/28/2024 1:40 PM CLINICAL INFORMATICS PHYSICIAN 11/28/2024 1:46 PM CLINICAL INFORMATICS PHYSICIAN us Juan A Chanel DO LAB BLOOD ORDERABLES Edited Resu lt - Final [facility] Department [place] [address] * (ABNORMAL) CBC without differential (11/28/2024 1:40 PM CLINICAL INFORMATICS PHYSICIAN) WBC 7.7 3.8 - 9.9 K/cumm Hgb 11.3(L) 13.0 - 17.5 g/dL [facility] Hct 34.6(L) 38.9 - 50.3 % [facility] Plt 409(H) 150 - 400 K/cumm [facility] MPV 9.7 9.1 - 12.3 fL [facility] RBC 3.25(L) 4.30 - 5.80 M/cumm [facility] MCV 106.5(H) 81.3 - 96.4 fL [facility] MCH 34.8(H) 27.1 - 33.3 pg [facility] MCHC 32.7 32.3 - 35.7 g/dL [facility] RDW CV 14.5 11.1 - 14.9 % [facility] RDW SD 56.7(H) 35.7 - 48.1 fL [facility] NRBC abs 0.04(H) 0.00 - 0.01 K/cumm [facility] Blood 11/28/2024 1:40 PM CLINICAL INFORMATICS PHYSICIAN 11/28/2024 1:46 PM CLINICAL INFORMATICS PHYSICIAN DominiqueCityblisaleah Chanel DO LAB BLOOD ORDERABLES Final Resul t Performing Organization Address City/[facility] Co de Phone Number [facility] One [facility] Department [place] [address] * Type and screen (11/28/2024 1:40 PM CLINICAL INFORMATICS PHYSICIAN) ABO Rh A Positive Ursula, indirect Negative [facility] Blood 11/28/2024 1:40 PM CLINICAL INFORMATICS PHYSICIAN 11/28/2024 1:49 PM CLINICAL INFORMATICS PHYSICIAN Narrative [facility] - 11/28/2024 2:38 PM CLINICAL INFORMATICS PHYSICIAN Has the patient had Daratumumab or Isatuximab in the past 6 months?->Unknown Tapjoy Darío PAULA LAB BLOOD BANK TEST ORDERABLES F inal Result [facility] [place] [address] * (ABNORMAL) Uric acid (11/28/2024 1:40 PM CLINICAL INFORMATICS PHYSICIAN) Pathologist [facility] Uric acid 2.9(L) 3.0 - 8.0 mg/dL Blood 11/28/2024 1:40 PM CLINICAL INFORMATICS PHYSICIAN 11/28/2024 1:46 PM CLINICAL INFORMATICS PHYSICIAN Juan A Chanel DO LAB BLOOD ORDERABLES Final Resul t Performing Organization Address [facility] [place] [address] * Phosphorus (11/28/2024 1:40 PM CLINICAL INFORMATICS PHYSICIAN) Pathologist [facility] Phosphorus, pl 2.4 2.3 - 4.5 mg/dL Blood 11/28/2024 1:40 PM CLINICAL INFORMATICS PHYSICIAN 11/28/2024 1:46 PM CLINICAL INFORMATICS PHYSICIAN Juan A Chanel DO LAB BLOOD ORDERABLES Final Resul t Performing Organization Address [facility] Co de Phone Number [facility] [place] [address] * Magnesium (11/28/2024 1:40 PM CLINICAL INFORMATICS PHYSICIAN) Pathologist [facility] Magnesium 1.7 1.4 - 2.5 mg/dL Blood 11/28/2024 1:40 PM CLINICAL INFORMATICS PHYSICIAN 11/28/2024 1:46 PM CLINICAL INFORMATICS PHYSICIAN Juan A Chanel DO LAB BLOOD ORDERABLES Final Resul t Performing Organization Address [facility] Co de Phone Number [facility] [place] [address] * Lactate dehydrogenase (LD) (11/28/2024 1:40 PM CLINICAL INFORMATICS PHYSICIAN) Lactate dehydrogenase (LDH) 226 100 - 250 Units/L Blood 11/28/2024 1:40 PM CLINICAL INFORMATICS PHYSICIAN 11/28/2024 1:46 PM CLINICAL INFORMATICS PHYSICIAN us Dominiquedominga Darío DO LAB BLOOD ORDERABLES Final Resul t [facility] One [facility] Department [place] [address] * (ABNORMAL) Comprehensive metabolic panel (11/28/2024 1:40 PM CLINICAL INFORMATICS PHYSICIAN) Sodium 139 135 - 145 mmol/L Potassium, pl 3.8 3.3 - 4.9 mmol/L [facility] Chloride 98 97 - 110 mmol/L [facility] CO2 37(H) 22 - 32 mmol/L [facility] Anion gap 4 2 - 15 mmol/L [facility] BUN 17 6 - 25 mg/dL [facility] Creatinine 0.85 0.80 - 1.30 mg/dL [facility] Glucose 74 70 - 199 mg/dL [facility] [...] 2022. Calcium 9.1 8.5 - 10.3 mg/dL [facility] Bilirubin, total 0.2 0.1 - 1.2 mg/dL [facility] Protein, pl 6.7 6.5 - 8.5 g/dL [facility] Albumin 3.6 3.5 - 5.0 g/dL [facility] Alk phos 120 40 - 130 Units/L [facility] ALT 36 7 - 55 Units/L [facility] AST 32 10 - 50 Units/L [facility] Blood 11/28/2024 1:40 PM CLINICAL INFORMATICS PHYSICIAN 11/28/2024 1:46 PM CLINICAL INFORMATICS PHYSICIAN [facility] LAB BLOOD ORDERABLES Final Resul t Performing Organization Address [facility] de Phone Number [facility] [place] [address] * aPTT (11/28/2024 1:32 PM CLINICAL INFORMATICS PHYSICIAN) aPTT 34 28 - 38 sec Comment: Interpretive Data Heparin therapeutic range: 66.0 - 100.0 seconds. Range based on correlation with therapeutic heparin activity range of 0.3 - 0.7 Units/mL. Current interpretive data was last revised on 2023. Blood 11/28/2024 1:32 PM CLINICAL INFORMATICS PHYSICIAN 11/28/2024 1:39 PM CLINICAL INFORMATICS PHYSICIAN [facility] BLOOD ORDERABLES Final Resul t Performing Organization Address [facility] de Phone Number [facility] Department [place] [address] * Protime-INR (11/28/2024 1:32 PM CLINICAL INFORMATICS PHYSICIAN) PT 12.6 9.7 - 13.0 sec INR 1.16 0.90 - 1.20 [facility] Comment: Interpretive data Oral anticoagulant therapeutic ranges: Venous thromboembolism prophylaxis or treatment: 2.0-3.0 CARDIOLOGY Standard range: 2.0-3.0 High-intensity range: 2.5-3.5 Refer to indication-specific guidelines for appropriate target ranges for prosthetic heart valve replacement. Current interpretive data was last revised on 2019. Blood 11/28/2024 1:32 PM CLINICAL INFORMATICS PHYSICIAN 11/28/2024 1:39 PM CLINICAL INFORMATICS PHYSICIAN [facility] LAB BLOOD ORDERABLES Final Resul t Performing Organization Address City/[facility] Co de Phone Number [facility] [place] [address] * (ABNORMAL) Fibrinogen (11/28/2024 1:32 PM CLINICAL INFORMATICS PHYSICIAN) Fibrinogen 561(H) 170 - 400 mg/dL Blood 11/28/2024 1:32 PM CLINICAL INFORMATICS PHYSICIAN 11/28/2024 1:39 PM CLINICAL INFORMATICS PHYSICIAN us Juan A Chanel DO LAB BLOOD ORDERABLES Final Resul t Performing Organization Address [facility] [place] [address] * (ABNORMAL) POCT glucose (11/18/2024 11:20 AM CLINICAL INFORMATICS PHYSICIAN) Glucose, POC 201(H) 70 - 199 mg/dL Comment:Glu2: RN/MD Notified Glucose comment 1 Glu2: RN/MD Notified [facility] Blood 11/18/2024 11:2 0 AM CLINICAL INFORMATICS PHYSICIAN 11/18/2024 11:20 AM CLINICAL INFORMATICS PHYSICIAN Cruz Redding MD PhD LAB POCT ORDERABLES - DEVICE Final Result Performing Organization Address [facility] Co de Phone Number [facility] [place] [address] * POCT glucose (11/18/2024 7:30 AM CLINICAL INFORMATICS PHYSICIAN) Glucose, POC 148 70 - 199 mg/dL Blood 11/18/2024 7:30 AM CLINICAL INFORMATICS PHYSICIAN 11/18/2024 7:30 AM CLINICAL INFORMATICS PHYSICIAN us Cruz Redding MD PhD LAB POCT ORDERABLES - DEVICE Final Result Performing Organization Address [facility] Co de Phone Number [facility] [place] [address] * POCT glucose (11/18/2024 4:25 AM CLINICAL INFORMATICS PHYSICIAN) Glucose, POC 146 70 - 199 mg/dL Blood 11/18/2024 4:25 AM CLINICAL INFORMATICS PHYSICIAN 11/18/2024 4:25 AM CLINICAL INFORMATICS PHYSICIAN us Cruz Redding MD PhD LAB POCT ORDERABLES - DEVICE Final Result Performing Organization Address City/State/[facility] Co de Phone Number [facility] [facility] Department [place] [address] * eGFR (11/18/2024 2:38 AM CLINICAL INFORMATICS PHYSICIAN) eGFR >90 >=60 mL/min/1. 73 m2 Comment: [...] last reviewed 2021. Blood 11/18/2024 2:38 AM CLINICAL INFORMATICS PHYSICIAN 11/18/2024 3:24 AM CLINICAL INFORMATICS PHYSICIAN us Josué Del Valle MD PhD LAB BLOOD ORDERABLES Fin al Result ZULEMA [facility] One [facility] Department [place] [address] * (ABNORMAL) Manual Differential (11/18/2024 2:38 AM CLINICAL INFORMATICS PHYSICIAN) Differential Manual Cells Counted 116 [facility]ER [facility] Neutrophil abs 3.4 1.5 - 6.5 K/cumm [facility] Imm gran abs 0.0 0.0 - 0.1 K/cumm [facility] Lymphocyte abs 2.2 0.8 - 3.3 K/cumm [facility] Monocyte abs 0.3 0.2 - 0.8 K/cumm [facility] Eosinophil abs 0.5 0.0 - 0.5 K/cumm [facility] Basophil abs 0.1 0.0 - 0.1 K/cumm [facility] Neutrophil pct 52.6 % [facility] Comment: Interpretive Data Percent cell count reference ranges are not reported, since discordance with absolute values may lead to misinterpretation of CBC data. Current Interpretive Data was last revised on 2018. Lymphocyte pct 33.6 % [facility] Comment: Interpretive Data Percent cell count reference ranges are not reported, since discordance with absolute values may lead to misinterpretation of CBC data. Current Interpretive Data was last revised on 2018. Monocyte pct 4.3 % [facility] Comment: Interpretive Data Percent cell count reference ranges are not reported, since discordance with absolute values may lead to misinterpretation of CBC data. Current Interpretive Data was last revised on 2018. Eosinophil pct 7.8 % [facility] Comment: Interpretive Data Percent cell count reference ranges are not reported, since discordance with absolute values may lead to misinterpretation of CBC data. Current Interpretive Data was last revised on 2018. Basophil pct 1.7 % [facility] Comment: Interpretive Data Percent cell count reference ranges are not reported, since discordance with absolute values may lead to misinterpretation of CBC data. Current Interpretive Data was last revised on 2018. RBC morphology Present(A) [facility] Anisocytosis Slight(A) C[facility]ER [facility] Macrocytes 3-7/HPF(A) [facility] Platelet estimate Adequate [facility] Blood 11/18/2024 2:38 AM CLINICAL INFORMATICS PHYSICIAN 11/18/2024 3:24 AM CLINICAL INFORMATICS PHYSICIAN Josué Del Valle MD PhD LAB BLOOD ORDERABLES Fin al Result Performing Organization Address City/[facility] Co de Phone Number [facility] Department [place] [address] * (ABNORMAL) CBC without differential (11/18/2024 2:38 AM CLINICAL INFORMATICS PHYSICIAN) WBC 6.4 3.8 - 9.9 K/cumm Hgb 9.9(L) 13.0 - 17.5 g/dL [facility] Hct 30.0(L) 38.9 - 50.3 % [facility] Plt 254 150 - 400 K/cumm [facility] MPV 10.5 9.1 - 12.3 fL [facility] RBC 2.83(L) 4.30 - 5.80 M/cumm [facility] MCV 106.0(H) 81.3 - 96.4 fL [facility] MCH 35.0(H) 27.1 - 33.3 pg [facility] MCHC 33.0 32.3 - 35.7 g/dL [facility] RDW CV 14.8 11.1 - 14.9 % [facility] RDW SD 58.4(H) 35.7 - 48.1 fL [facility] NRBC abs 0.00 0.00 - 0.01 K/cumm [facility] Blood 11/18/2024 2:38 AM CLINICAL INFORMATICS PHYSICIAN 11/18/2024 3:24 AM CLINICAL INFORMATICS PHYSICIAN Josué Del Valle MD PhD LAB BLOOD ORDERABLES Fin al Result Performing Organization Address [facility]/ZIP Co de Phone Number [facility] [place] [address] * Phosphorus (11/18/2024 2:38 AM CLINICAL INFORMATICS PHYSICIAN) Pathologist [facility] Phosphorus, pl 3.2 2.3 - 4.5 mg/dL Blood 11/18/2024 2:38 AM CLINICAL INFORMATICS PHYSICIAN 11/18/2024 3:24 AM CLINICAL INFORMATICS PHYSICIAN Josué Del Valle MD PhD LAB BLOOD ORDERABLES Fin al Result Performing Organization Address [facility] de Phone Number [facility] Department [place] [address] * Magnesium (11/18/2024 2:38 AM CLINICAL INFORMATICS PHYSICIAN) [facility] Magnesium 1.9 1.4 - 2.5 mg/dL Blood 11/18/2024 2:38 AM CLINICAL INFORMATICS PHYSICIAN 11/18/2024 3:24 AM CLINICAL INFORMATICS PHYSICIAN Josué Del Valle MD PhD LAB BLOOD ORDERABLES Fin al Result Performing Organization Address [facility] de Phone Number [facility] Department [place] [address] * (ABNORMAL) Basic metabolic panel (11/18/2024 2:38 AM CLINICAL INFORMATICS PHYSICIAN) [facility] Sodium 143 135 - 145 mmol/L Potassium, pl 4.1 3.3 - 4.9 mmol/L [facility] Chloride 104 97 - 110 mmol/L [facility] CO2 32 22 - 32 mmol/L [facility] Anion gap 7 2 - 15 mmol/L [facility] BUN 20 6 - 25 mg/dL [facility] Creatinine 0.78(L) 0.80 - 1.30 mg/dL [facility] Glucose 117 70 - 199 mg/dL [facility] [...] 2022. Calcium 8.3(L) 8.5 - 10.3 mg/dL [facility] Blood 11/18/2024 2:38 AM CLINICAL INFORMATICS PHYSICIAN 11/18/2024 3:24 AM CLINICAL INFORMATICS PHYSICIAN Narrative [facility] - 11/18/2024 3:55 AM CLINICAL INFORMATICS PHYSICIAN Daily except Saturday and . Morning draw. Josué Del Valle MD PhD LAB BLOOD ORDERABLES Fin al Result Performing Organization Address [facility] Co de Phone Number [facility] [place] [address] * POCT glucose (11/18/2024 12:47 AM CLINICAL INFORMATICS PHYSICIAN) Glucose, POC 125 70 - 199 mg/dL Blood 11/18/2024 12:4 7 AM CLINICAL INFORMATICS PHYSICIAN 11/18/2024 12:47 AM CLINICAL INFORMATICS PHYSICIAN Cruz Redding MD PhD LAB POCT ORDERABLES - DEVICE Final Result Performing Organization Address [facility] Co de Phone Number [facility] [place] [address] * POCT glucose (11/17/2024 8:11 PM CLINICAL INFORMATICS PHYSICIAN) Glucose, POC 135 70 - 199 mg/dL Blood 11/17/2024 8:11 PM CLINICAL INFORMATICS PHYSICIAN 11/17/2024 8:11 PM CLINICAL INFORMATICS PHYSICIAN Cruz Redding MD PhD LAB POCT ORDERABLES - DEVICE Final Result Performing Organization Address [facility] Co de Phone Number [facility] [place] [address] * (ABNORMAL) POCT glucose (11/17/2024 5:32 PM CLINICAL INFORMATICS PHYSICIAN) Glucose, POC 229(H) 70 - 199 mg/dL Blood 11/17/2024 5:32 PM CLINICAL INFORMATICS PHYSICIAN 11/17/2024 5:32 PM CLINICAL INFORMATICS PHYSICIAN Cruz Redding MD PhD LAB POCT ORDERABLES - DEVICE Final Result Performing Organization Address [facility] de Phone Number [facility] [place] [address] * POCT glucose (11/17/2024 12:03 PM CLINICAL INFORMATICS PHYSICIAN) Glucose, POC 156 70 - 199 mg/dL Blood 11/17/2024 12:0 3 PM CLINICAL INFORMATICS PHYSICIAN 11/17/2024 12:03 PM CLINICAL INFORMATICS PHYSICIAN Cruz Redding MD PhD LAB POCT ORDERABLES - DEVICE Final Result Performing Organization Address [facility] de Phone Number [facility] [place] [address] * POCT glucose (11/17/2024 11:14 AM CLINICAL INFORMATICS PHYSICIAN) Glucose, POC 174 70 - 199 mg/dL Blood 11/17/2024 11:1 4 AM CLINICAL INFORMATICS PHYSICIAN 11/17/2024 11:14 AM CLINICAL INFORMATICS PHYSICIAN Cruz Redding MD PhD LAB POCT ORDERABLES - DEVICE Final Result Performing Organization Address [facility] de Phone Number [facility] [place] [address] * POCT glucose (11/17/2024 7:19 AM CLINICAL INFORMATICS PHYSICIAN) Glucose, POC 126 70 - 199 mg/dL Blood 11/17/2024 7:19 AM CLINICAL INFORMATICS PHYSICIAN 11/17/2024 7:19 AM CLINICAL INFORMATICS PHYSICIAN us Cruz Redding MD PhD LAB POCT ORDERABLES - DEVICE Final Result Performing Organization Address [facility] de Phone Number [facility] [place] [address] * POCT glucose (11/17/2024 4:32 AM CLINICAL INFORMATICS PHYSICIAN) Glucose, POC 159 70 - 199 mg/dL Blood 11/17/2024 4:32 AM CLINICAL INFORMATICS PHYSICIAN 11/17/2024 4:32 AM CLINICAL INFORMATICS PHYSICIAN us Cruz Redding MD PhD LAB POCT ORDERABLES - DEVICE Final Result Performing Organization Address [facility] de Phone Number ZULEMA [facility] [place] [address] * POCT glucose (11/17/2024 12:33 AM CLINICAL INFORMATICS PHYSICIAN) Glucose, POC 178 70 - 199 mg/dL Blood 11/17/2024 12:3 3 AM CLINICAL INFORMATICS PHYSICIAN 11/17/2024 12:33 AM CLINICAL INFORMATICS PHYSICIAN us Cruz Redding MD PhD LAB POCT ORDERABLES - DEVICE Final Result Performing Organization Address [facility] de Phone Number ZULEMA [facility] [place] [address] * eGFR (11/17/2024 12:31 AM CLINICAL INFORMATICS PHYSICIAN) eGFR >90 >=60 mL/min/1. 73 m2 Comment: [...] reviewed 2021. Blood 11/17/2024 12:3 1 AM CLINICAL INFORMATICS PHYSICIAN 11/17/2024 12:53 AM CLINICAL INFORMATICS PHYSICIAN Josué Del Valle MD PhD LAB BLOOD ORDERABLES Fin al Result [facility] One [facility] Department [place] [address] * (ABNORMAL) Manual Differential (11/17/2024 12:31 AM CLINICAL INFORMATICS PHYSICIAN) Differential Manual Cells Counted 114 [facility] Neutrophil abs 3.4 1.5 - 6.5 K/cumm [facility] Imm gran abs 0.1 0.0 - 0.1 K/cumm [facility] Lymphocyte abs 2.3 0.8 - 3.3 K/cumm [facility] Monocyte abs 0.6 0.2 - 0.8 K/cumm [facility] Eosinophil abs 0.2 0.0 - 0.5 K/cumm [facility] Neutrophil pct 50.9 % [facility] Comment: Interpretive Data Percent cell count reference ranges are not reported, since discordance with absolute values may lead to misinterpretation of CBC data. Current Interpretive Data was last revised on 2018. Lymphocyte pct 35.1 % [facility] Comment: Interpretive Data Percent cell count reference ranges are not reported, since discordance with absolute values may lead to misinterpretation of CBC data. Current Interpretive Data was last revised on 2018. Monocyte pct 9.6 % [facility] Comment: Interpretive Data Percent cell count reference ranges are not reported, since discordance with absolute values may lead to misinterpretation of CBC data. Current Interpretive Data was last revised on 2018. Eosinophil pct 3.5 % [facility] Comment: Interpretive Data Percent cell count reference ranges are not reported, since discordance with absolute values may lead to misinterpretation of CBC data. Current Interpretive Data was last revised on 2018. Promyelocyte pct 0.9 % [facility] RBC morphology Present(A) [facility] Anisocytosis Marked(A) [facility] Macrocytes > 15/HPF(A) [facility] Platelet estimate Adequate [facility] Blood 11/17/2024 12:3 1 AM CLINICAL INFORMATICS PHYSICIAN 11/17/2024 12:49 AM CLINICAL INFORMATICS PHYSICIAN Josué Del Valle MD PhD LAB BLOOD ORDERABLES Arun tamiko Result - Final [facility] One [facility] Department [place] [address] * (ABNORMAL) CBC without differential (11/17/2024 12:31 AM CLINICAL INFORMATICS PHYSICIAN) WBC 6.6 3.8 - 9.9 K/cumm Hgb 11.6(L) 13.0 - 17.5 g/dL [facility] Hct 35.3(L) 38.9 - 50.3 % [facility] Plt 307 150 - 400 K/cumm [facility] MPV 10.5 9.1 - 12.3 fL [facility] RBC 3.38(L) 4.30 - 5.80 M/cumm [facility] MCV 104.4(H) 81.3 - 96.4 fL [facility] MCH 34.3(H) 27.1 - 33.3 pg [facility] MCHC 32.9 32.3 - 35.7 g/dL [facility] RDW CV 14.7 11.1 - 14.9 % [facility] RDW SD 56.7(H) 35.7 - 48.1 fL [facility] NRBC abs 0.00 0.00 - 0.01 K/cumm [facility] Blood 11/17/2024 12:3 1 AM CLINICAL INFORMATICS PHYSICIAN 11/17/2024 12:49 AM CLINICAL INFORMATICS PHYSICIAN Josué Del Valle MD PhD LAB BLOOD ORDERABLES Fin al Result Performing Organization Address City/[facility] Co de Phone Number [facility] Department [place] [address] * Uric acid (11/17/2024 12:31 AM CLINICAL INFORMATICS PHYSICIAN) Uric acid 6.0 3.0 - 8.0 mg/dL Blood 11/17/2024 12:3 1 AM CLINICAL INFORMATICS PHYSICIAN 11/17/2024 12:46 AM CLINICAL INFORMATICS PHYSICIAN us Cruz Redding MD PhD LAB BLOOD ORDERABLE S Final Result Performing Organization Address [facility] de Phone Number [facility] [place] [address] * Phosphorus (11/17/2024 12:31 AM CLINICAL INFORMATICS PHYSICIAN) Phosphorus, pl 2.7 2.3 - 4.5 mg/dL Blood 11/17/2024 12:3 1 AM CLINICAL INFORMATICS PHYSICIAN 11/17/2024 12:46 AM CLINICAL INFORMATICS PHYSICIAN Josué Del Valle MD PhD LAB BLOOD ORDERABLES Fin al Result Performing Organization Address [facility] de Phone Number [facility] [place] [address] * Magnesium (11/17/2024 12:31 AM CLINICAL INFORMATICS PHYSICIAN) Magnesium 1.9 1.4 - 2.5 mg/dL Blood 11/17/2024 12:3 1 AM CLINICAL INFORMATICS PHYSICIAN 11/17/2024 12:46 AM CLINICAL INFORMATICS PHYSICIAN Josué Del Valle MD PhD LAB BLOOD ORDERABLES Fin al Result Performing Organization Address City/[facility] Co de Phone Number [facility] [place] [address] * Lactate dehydrogenase (LD) (11/17/2024 12:31 AM CLINICAL INFORMATICS PHYSICIAN) Pathologist [facility] Lactate dehydrogenase (LDH) 220 100 - 250 Units/L Blood 11/17/2024 12:3 1 AM CLINICAL INFORMATICS PHYSICIAN 11/17/2024 12:46 AM CLINICAL INFORMATICS PHYSICIAN Cruz Redding MD PhD LAB BLOOD ORDERABLE S Final Result Performing Organization Address [facility] [place] [address] * (ABNORMAL) Hemoglobin A1c (11/17/2024 12:31 AM CLINICAL INFORMATICS PHYSICIAN) Pathologist [facility] Hgb A1C 6.0(H) 4.0 - 5.6 % Estimated Average Glucose 126 mg/dL [facility] Comment: The ADA recommends reporting an estimated Average Glucose (eAG) with all Hemoglobin A1c results using the equation derived from a study of 507 normal and diabetic adults. ??Minority populations were underrepresented and children were not included. ?? (Diabetes Care 2020; 43(S1): S66-S76). ??The eAG is not equivalent to a fasting glucose. Blood 11/17/2024 12:3 1 AM CLINICAL INFORMATICS PHYSICIAN 11/17/2024 12:52 AM CLINICAL INFORMATICS PHYSICIAN Narrative [facility] - 11/17/2024 5:28 PM CLINICAL INFORMATICS PHYSICIAN Reflex Cruz Redding MD PhD LAB BLOOD ORDERABLE S Final Result Performing Organization Address [facility] [place] [address] * (ABNORMAL) Basic metabolic panel (11/17/2024 12:31 AM CLINICAL INFORMATICS PHYSICIAN) Sodium 142 135 - 145 mmol/L Potassium, pl 3.9 3.3 - 4.9 mmol/L [facility] Chloride 101 97 - 110 mmol/L [facility] CO2 33(H) 22 - 32 mmol/L [facility] Anion gap 8 2 - 15 mmol/L [facility] BUN 20 6 - 25 mg/dL [facility] Creatinine 0.66(L) 0.80 - 1.30 mg/dL [facility] Glucose 166 70 - 199 mg/dL [facility] [...] 2022. Calcium 9.4 8.5 - 10.3 mg/dL [facility] Blood 11/17/2024 12:3 1 AM CLINICAL INFORMATICS PHYSICIAN 11/17/2024 12:46 AM CLINICAL INFORMATICS PHYSICIAN Narrative [facility] - 11/17/2024 1:32 AM CLINICAL INFORMATICS PHYSICIAN Daily except Saturday and . Morning draw. Josué Del Valle MD PhD LAB BLOOD ORDERABLES Fin al Result [facility] One [facility] [place] [address] * (ABNORMAL) POCT glucose (11/16/2024 8:43 PM CLINICAL INFORMATICS PHYSICIAN) Glucose, POC 231(H) 70 - 199 mg/dL Blood 11/16/2024 8:43 PM CLINICAL INFORMATICS PHYSICIAN 11/16/2024 8:43 PM CLINICAL INFORMATICS PHYSICIAN us Cruz Redding MD PhD LAB POCT ORDERABLES - DEVICE Final Result Performing Organization Address City/[facility]/ZIP Co de Phone Number ZULEMA [facility] Department [place] [address] * POCT glucose (11/16/2024 5:06 PM CLINICAL INFORMATICS PHYSICIAN) Glucose, POC 120 70 - 199 mg/dL Blood 11/16/2024 5:06 PM CLINICAL INFORMATICS PHYSICIAN 11/16/2024 5:06 PM CLINICAL INFORMATICS PHYSICIAN Cruz Redding MD PhD LAB POCT ORDERABLES - DEVICE Final Result Performing Organization Address [facility] Co de Phone Number ZULEMA [facility] Department [place] [address] * Surgical pathology (11/16/2024 4:53 PM CLINICAL INFORMATICS PHYSICIAN) Tissue (Esophageal biopsy) 11/16/2024 4:53 PM CLINICAL INFORMATICS PHYSICIAN Narrative PATHOLOGY [facility] - 11/17/2024 3:51 PM CLINICAL INFORMATICS PHYSICIAN EPIC results best viewed via link to PDF [facility] Ramonita Jaramillo [facility] [place] [address] Note to Patients: This report may contain [...] PATHOLOGY REPORT FINAL Patient Name: ?? BRI JONESAngelito Gender: ??M : ??1965 (Age: 59) Address: ??[address] [place], [place] ??[address] [facility] #: ??[id number] Taken:11/16/2024 Received:11/16/2024 Reported: 11/17/2024 Patient Type: [facility] Inpatient ?? Service: Gastroenterology Location: [facility] ??[id number] Physician(s): ??MD Kirt Romero DO Kellie Hughes, [...] Surgical Pathology and Flow Cytometry Departments at [facility] as part of an ongoing customer quality specialist program and in compliance with federally mandated [...] Surgical Pathology and Flow Cytometry Departments of [facility]. ??It has not been cleared or approved by the U. S. Food and Drug Administration. IMAGES AND SCANNED DOCUMENTS, IF INCLUDED, ONLY VIEWABLE IN PDF VERSION OF REPORT us Hany Martinez MD LAB PATHOLOGY ORDERABLES Final Result PATHOLOGY [facility] 3rd Floor [place], [place] [phone] * EGD (11/16/2024 4:05 PM CLINICAL INFORMATICS PHYSICIAN) Anatomical Region Laterality Modality Other Narrative Procedure Note Hany Martinez MD - 11/16/2024 4:05 PM [facility] Patient Name: Bri Jones Procedure Date: 11/16/2024 4:05 PM Date of : 1965 Admit Type: Outpatient Age: 59 Gender: Male Attending MD: Hany Martinez M.D. Room: [facility] ENDOSCOPY Note Status: Finalized Procedure: Upper GI [...] passed under direct vision. The [id number] endoscope was introduced through the mouth, and [...] ult * POCT glucose (11/16/2024 3:54 PM CLINICAL INFORMATICS PHYSICIAN) Glucose, POC 118 70 - 199 mg/dL Blood 11/16/2024 3:54 PM CLINICAL INFORMATICS PHYSICIAN 11/16/2024 3:54 PM CLINICAL INFORMATICS PHYSICIAN us Cruz Redding MD PhD LAB POCT ORDERABLES - DEVICE Final Result Performing Organization Address City/[facility] Co de Phone Number ZULEMA [facility] [employer] [address] * POCT glucose (11/16/2024 11:37 AM CLINICAL INFORMATICS PHYSICIAN) Glucose, POC 129 70 - 199 mg/dL Blood 11/16/2024 11:3 7 AM CLINICAL INFORMATICS PHYSICIAN 11/16/2024 11:37 AM CLINICAL INFORMATICS PHYSICIAN Cruz Redding MD PhD LAB POCT ORDERABLES - DEVICE Final Result Performing Organization Address [facility] Co de Phone Number ZULEMA [facility] [place] [address] * CT Chest Abdomen W Contrast (11/16/2024 10:32 AM CLINICAL INFORMATICS PHYSICIAN) Anatomical Region Laterality Modality Body N/A Computed Tomogra phy 11/16/2024 11:0 1 AM CLINICAL INFORMATICS PHYSICIAN Impressions 11/16/2024 11:01 AM CLINICAL INFORMATICS PHYSICIAN 1. ??Two areas of segmental thickening of [...] Dominique Richmond M.D. 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 ??Patient has erosive esophagitis presenting with [...] post stem cell transplant in 2009 with mjesc-fpmjac-ezar disease. Patient has erosive esophagitis presenting with [...] t * POCT glucose (11/16/2024 7:57 AM CLINICAL INFORMATICS PHYSICIAN) Glucose, POC 118 70 - 199 mg/dL Blood 11/16/2024 7:57 AM CLINICAL INFORMATICS PHYSICIAN 11/16/2024 7:57 AM CLINICAL INFORMATICS PHYSICIAN us Cruz Redding MD PhD LAB POCT ORDERABLES - DEVICE Final Result [facility] One [facility] Department [place] [address] * POCT glucose (11/16/2024 3:55 AM CLINICAL INFORMATICS PHYSICIAN) Pathologist [facility] Glucose, POC 123 70 - 199 mg/dL Blood 11/16/2024 3:55 AM CLINICAL INFORMATICS PHYSICIAN 11/16/2024 3:55 AM CLINICAL INFORMATICS PHYSICIAN us Josué Del Valle MD PhD LAB POCT ORDERABLES - DE VICE Final Result ZULEMA [facility] Daniela [facility] Department [place] [address] * eGFR (11/16/2024 3:38 AM CLINICAL INFORMATICS PHYSICIAN) [facility] eGFR >90 >=60 mL/min/1. 73 m2 [...] last reviewed 2021. Blood 11/16/2024 3:38 AM CLINICAL INFORMATICS PHYSICIAN 11/16/2024 4:26 AM CLINICAL INFORMATICS PHYSICIAN Josué Del Valle MD PhD LAB BLOOD ORDERABLES Fin al Result Performing Organization Address [facility] Co de Phone Number [facility] [place] [address] * aPTT (11/16/2024 3:38 AM CLINICAL INFORMATICS PHYSICIAN) aPTT 36 28 - 38 sec Comment: Interpretive Data Heparin therapeutic range: 66.0 - 100.0 seconds. Range based on correlation with therapeutic heparin activity range of 0.3 - 0.7 Units/mL. Current interpretive data was last revised on 2023. Blood 11/16/2024 3:38 AM CLINICAL INFORMATICS PHYSICIAN 11/16/2024 4:24 AM CLINICAL INFORMATICS PHYSICIAN Josué Del Valle MD PhD LAB BLOOD ORDERABLES Fin al Result Performing Organization Address [facility] Co de Phone Number [facility] [place] [address] * (ABNORMAL) Fibrinogen (11/16/2024 3:38 AM CLINICAL INFORMATICS PHYSICIAN) Fibrinogen 771(H) 170 - 400 mg/dL Blood 11/16/2024 3:38 AM CLINICAL INFORMATICS PHYSICIAN 11/16/2024 4:24 AM CLINICAL INFORMATICS PHYSICIAN Josué Del Valle MD PhD LAB BLOOD ORDERABLES Fin al Result Performing Organization Address [facility] [place] [address] * Type and screen (11/16/2024 3:38 AM CLINICAL INFORMATICS PHYSICIAN) Ursula, indirect Negative ABO Rh A Positive [facility] Blood 11/16/2024 3:38 AM CLINICAL INFORMATICS PHYSICIAN 11/16/2024 4:18 AM CLINICAL INFORMATICS PHYSICIAN Narrative [facility] [facility] - 11/16/2024 5:10 AM CLINICAL INFORMATICS PHYSICIAN Has the patient had Daratumumab or Isatuximab in the past 6 months?->Unknown Josué Del Valle MD PhD LAB BLOOD BANK TEST ZAC VILLEGAS Final Result Performing Organization Address [facility] de Phone Number [facility] [place] [address] * Uric acid (11/16/2024 3:38 AM CLINICAL INFORMATICS PHYSICIAN) Uric acid 5.8 3.0 - 8.0 mg/dL Blood 11/16/2024 3:38 AM CLINICAL INFORMATICS PHYSICIAN 11/16/2024 4:26 AM CLINICAL INFORMATICS PHYSICIAN Josué Del Valle MD PhD LAB BLOOD ORDERABLES Fin al Result Performing Organization Address City/[facility] de Phone Number [facility] [place] [address] * Phosphorus (11/16/2024 3:38 AM CLINICAL INFORMATICS PHYSICIAN) Phosphorus, pl 2.9 2.3 - 4.5 mg/dL Blood 11/16/2024 3:38 AM CLINICAL INFORMATICS PHYSICIAN 11/16/2024 4:26 AM CLINICAL INFORMATICS PHYSICIAN Josué Del Valle MD PhD LAB BLOOD ORDERABLES Fin al Result Performing Organization Address City/[facility] [place] [address] * Magnesium (11/16/2024 3:38 AM CLINICAL INFORMATICS PHYSICIAN) Magnesium 1.9 1.4 - 2.5 mg/dL Blood 11/16/2024 3:38 AM CLINICAL INFORMATICS PHYSICIAN 11/16/2024 4:26 AM CLINICAL INFORMATICS PHYSICIAN Josué Del Valle MD PhD LAB BLOOD ORDERABLES Fin al Result Performing Organization Address City/[facility]/ZIP Co de Phone Number [facility] Department [place] [address] * Lactate dehydrogenase (LD) (11/16/2024 3:38 AM CLINICAL INFORMATICS PHYSICIAN) Pathologist [facility] Lactate dehydrogenase (LDH) 205 100 - 250 Units/L Blood 11/16/2024 3:38 AM CLINICAL INFORMATICS PHYSICIAN 11/16/2024 4:26 AM CLINICAL INFORMATICS PHYSICIAN Josué Del Valle MD PhD LAB BLOOD ORDERABLES Fin al Result Performing Organization Address [facility] de Phone Number [facility] Department [place] [address] * (ABNORMAL) Comprehensive metabolic panel (11/16/2024 3:38 AM CLINICAL INFORMATICS PHYSICIAN) [facility] Sodium 142 135 - 145 mmol/L Potassium, pl 4.1 3.3 - 4.9 mmol/L [facility] Chloride 100 97 - 110 mmol/L [facility] CO2 32 22 - 32 mmol/L [facility] Anion gap 10 2 - 15 mmol/L [facility] BUN 20 6 - 25 mg/dL [facility] Creatinine 0.67(L) 0.80 - 1.30 mg/dL [facility] Glucose 129 70 - 199 mg/dL [facility] [...] 2022. Calcium 9.9 8.5 - 10.3 mg/dL [facility] Bilirubin, total 0.4 0.1 - 1.2 mg/dL [facility] Protein, pl 7.7 6.5 - 8.5 g/dL [facility] Albumin 4.0 3.5 - 5.0 g/dL [facility] Alk phos 180(H) 40 - 130 Units/L [facility] ALT 54 7 - 55 Units/L [facility] AST 30 10 - 50 Units/L [facility] Blood 11/16/2024 3:38 AM CLINICAL INFORMATICS PHYSICIAN 11/16/2024 4:26 AM CLINICAL INFORMATICS PHYSICIAN Narrative [facility] - 11/16/2024 4:58 AM CLINICAL INFORMATICS PHYSICIAN Saturday and only. Morning draw. us Josué Del Valle MD PhD LAB BLOOD ORDERABLES Fin al Result [facility] Department [place] [address] * eGFR (11/16/2024 12:13 AM CLINICAL INFORMATICS PHYSICIAN) eGFR >90 >=60 mL/min/1. 73 m2 Comment: [...] reviewed 2021. Blood 11/16/2024 12:1 3 AM CLINICAL INFORMATICS PHYSICIAN 11/16/2024 12:32 AM CLINICAL INFORMATICS PHYSICIAN us Mark Figueroa MD PhD LAB BLOOD ORDERABLE S Final Result [facility] Department [place] [address] * Differential, auto (11/16/2024 12:13 AM CLINICAL INFORMATICS PHYSICIAN) Neutrophil abs 3.6 1.5 - 6.5 K/cumm Imm gran abs 0.0 0.0 - 0.1 K/cumm [facility] Lymphocyte abs 2.8 0.8 - 3.3 K/cumm [facility] Monocyte abs 0.7 0.2 - 0.8 K/cumm [facility] Eosinophil abs 0.2 0.0 - 0.5 K/cumm [facility] Basophil abs 0.1 0.0 - 0.1 K/cumm [facility] Neutrophil pct 49.1 % [facility] Comment: Interpretive Data [...] revised on 2018. Lymphocyte pct 37.9 % [facility] Comment: Interpretive Data Percent cell count reference ranges are not reported, since discordance with absolute values may lead to misinterpretation of CBC data. Current Interpretive Data was last revised on 2018. Monocyte pct 8.9 % [facility] Comment: Interpretive Data Percent cell count reference ranges are not reported, since discordance with absolute values may lead to misinterpretation of CBC data. Current Interpretive Data was last revised on 2018. Eosinophil pct 3.0 % [facility] Comment: Interpretive Data Percent cell count reference ranges are not reported, since discordance with absolute values may lead to misinterpretation of CBC data. Current Interpretive Data was last revised on 2018. Basophil pct 0.7 % [facility] Comment: Interpretive Data Percent cell count reference ranges are not reported, since discordance with absolute values may lead to misinterpretation of CBC data. Current Interpretive Data was last revised on 2018. Blood 11/16/2024 12:1 3 AM CLINICAL INFORMATICS PHYSICIAN 11/16/2024 12:32 AM CLINICAL INFORMATICS PHYSICIAN us Mark Figueroa MD PhD LAB BLOOD ORDERABLE S Final Result [facility] Department [place] [address] * (ABNORMAL) CBC with auto differential (11/16/2024 12:13 AM CLINICAL INFORMATICS PHYSICIAN) WBC 7.3 3.8 - 9.9 K/cumm Hgb 13.1 13.0 - 17.5 g/dL [facility] Hct 39.0 38.9 - 50.3 % [facility] Plt 314 150 - 400 K/cumm [facility] MPV 10.4 9.1 - 12.3 fL [facility] RBC 3.69(L) 4.30 - 5.80 M/cumm [facility] MCV 105.7(H) 81.3 - 96.4 fL [facility] MCH 35.5(H) 27.1 - 33.3 pg [facility] MCHC 33.6 32.3 - 35.7 g/dL [facility] RDW CV 15.1(H) 11.1 - 14.9 % [facility] RDW SD 58.9(H) 35.7 - 48.1 fL [facility] NRBC abs 0.02(H) 0.00 - 0.01 K/cumm [facility] Blood 11/16/2024 12:1 3 AM CLINICAL INFORMATICS PHYSICIAN 11/16/2024 12:32 AM CLINICAL INFORMATICS PHYSICIAN Mark Figueroa MD PhD LAB BLOOD ORDERABLE S Final Result Performing Organization Address [facility] de Phone Number [facility] [place] [address] * Protime-INR (11/16/2024 12:13 AM CLINICAL INFORMATICS PHYSICIAN) [facility] PT 10.6 9.7 - 13.0 sec INR 0.98 0.90 - 1.20 [facility] Comment: Interpretive data Oral anticoagulant therapeutic ranges: Venous thromboembolism prophylaxis or treatment: 2.0-3.0 CARDIOLOGY Standard range: 2.0-3.0 High-intensity range: 2.5-3.5 Refer to indication-specific guidelines for appropriate target ranges for prosthetic heart valve replacement. Current interpretive data was last revised on 2019. Blood 11/16/2024 12:1 3 AM CLINICAL INFORMATICS PHYSICIAN 11/16/2024 12:35 AM CLINICAL INFORMATICS PHYSICIAN Mark Figueroa MD PhD LAB BLOOD ORDERABLE S Final Result Performing Organization Address [facility] de Phone Number [facility] [place] [address] * (ABNORMAL) Basic metabolic panel (11/16/2024 12:13 AM CLINICAL INFORMATICS PHYSICIAN) [facility] Sodium 140 135 - 145 mmol/L Potassium, pl 4.8 3.3 - 4.9 mmol/L [facility] Comment:Hemolyzed; Potassium value may be falsely elevated by as much as 0.3-0.5 mmol/L. Suggest redraw and reanalysis. Chloride 100 97 - 110 mmol/L [facility] CO2 28 22 - 32 mmol/L [facility] Anion gap 12 2 - 15 mmol/L [facility] BUN 19 6 - 25 mg/dL [facility] Creatinine 0.63(L) 0.80 - 1.30 mg/dL [facility] Glucose 133 70 - 199 mg/dL [facility] [...] 2022. Calcium 9.9 8.5 - 10.3 mg/dL [facility] Blood 11/16/2024 12:1 3 AM CLINICAL INFORMATICS PHYSICIAN 11/16/2024 12:32 AM CLINICAL INFORMATICS PHYSICIAN Mark Figueroa MD PhD LAB BLOOD ORDERABLE S Final Result Performing Organization Address [facility] de Phone Number [facility] [place] [address] * POCT glucose (11/16/2024 12:12 AM CLINICAL INFORMATICS PHYSICIAN) Glucose, POC 130 70 - 199 mg/dL Blood 11/16/2024 12:1 2 AM CLINICAL INFORMATICS PHYSICIAN 11/16/2024 12:12 AM CLINICAL INFORMATICS PHYSICIAN Josué Del Valle MD PhD LAB POCT ORDERABLES - DE VICE Final Result Performing Organization Address [facility] Co de Phone Number [facility] [place] [address] * Lipid panel (07/14/2024 6:22 PM CDT) [...] 2018. LDL, calculated 23 <=129 mg/dL [facility] Comment: Interpretive Data [...] last revised on 2018. Chol/HDL ratio 2 [facility] Blood 07/14/2024 6:22 PM CDT 07/14/2024 9:07 PM CDT us Cameron BERNAL LAB BLOOD ORDERABLES Final R esult Performing Organization Address City/[facility]/ZIP Co de Phone Number [facility] [address] [facility] [place] [address] * Albumin Creatinine Ratio, Urine (02/28/2022 8:57 AM CDT) Albumin Ur <12.0 mg/L [facility] Comment: Interpretive Data No reference range established. Current interpretive data was last revised 2019. Creatinine Ur 42.0 mg/dL [facility] Comment: Interpretive Data No reference range established. Current interpretive data was last revised 2019. Albumin Creatinine Ratio, Ur <29 1 - 29 mg/g [facility] Urine 02/28/2022 8:57 AM CDT 02/28/2022 1:[address] Montejo MD LAB URINE ORDERABLES Final Resu lt Performing Organization Address [facility] Co de Phone Number [facility] Department [place] [address] * Hepatitis panel, acute (09/07/2021 4:28 AM CDT) Hep A IgM Nonreactive Nonreactive [facility] Comment: Interpretive Data: If Hep A IgM Ab is reported as Equivocal, a new sample should be drawn in two weeks for testing. Current interpretive data was last revised on 20. Hep B core IgM Nonreactive Nonreactive [facility] Comment: Interpretive Data If HepB Core IgM Ab is reported as Equivocal, a new sample should be drawn in two weeks for testing. Current interpretive data was last revised on 20. Hep C Ab Nonreactive Nonreactive [facility] Comment:Antibodies to HCV no t detected. Does NOT exclude the possibility of recent exposure to HCV. HepBsAg Nonreactive Nonreactive [facility] Blood 09/07/2021 4:28 AM CDT 09/07/2021 4:44 AM CDT Anaid Kruse MD LAB MICROBIOL OGY - GENERAL ORDERABLES Edited Result - Final Performing Organization Address [facility]/ZIP Co de Phone Number [facility] [place] [address] * PSA screen (02/04/2017 8:36 AM CDT) PSA-Total 0.7 0.1 - 4.0 ng/mL [facility] Blood specimen (specimen) 02/04/2017 8:36 AM CDT 02/04/2017 9:05 AM CDT Josué Del Valle MD PhD LAB BLOOD ORDERABLES Fin al Result Performing Organization Address [facility] de Phone Number [facility] [place] [address] from Last 3 Months or Most Recently Relevant to Health Maintenance Additional Health Concerns Infection Onset 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 Insurance MEDICARE [employer] [facility] MEDIC[facility] Address: [address] [address] [place] [address] [employer] MED[employer] [facility] MEDICARE Address: [address] [address] [place] [address] [address] [facility] MEDICARE Address: [address] [address] [place] [address] [employer] Advance Directives For more information, please contact: [phone] * Full Code (Latest Code Status on [...] 1:59 AM 07/17/2024 6:22 PM Care Teams Yardage Control Operator Forming Relationship Specialty Start Date End Date Kirt Lindsay DO PCP - General Internal Medicine 02/02/21 Josué Del Valle MD PhD Medical Oncologist/Control System Computer Scientist Medical Oncology 08/26/19 Cal Carranza DO [address] [place] [address] Networking Engineer Internal Medicine 06/12/23 Halie Khan MD [address] [place], [place] [id number] Sas Developer Analyst Critical Care Med 06/12/23 Wilfred Kinsey MD [address] [facility] [address] [address] Consulting Physician Gastroenterology 03/02/24
--- OUTSIDE RECORDS SUMMARY | 2024-12-15 16:51 | XMS_ITS | Encounter Summary ---
Author Organization [facility] Address [address] [place] [address] Phone Care Team Providers Care Excelsior Cutter Name Role Phone Josué Del Valle MD PhD Unavailable [phone] Kirt Lindsay DO Primary Care Provider [phone] Tay Charlton MD Unavailable [phone] Halie Khan MD Unavailable [phone] Ant Starks MD Unavailable [phone] Cal Carranza DO Unavailable [phone] Halie Khan MD Unavailable [phone] Wilfred Kinsey MD Unavailable Encounter Details Date Type Department Care Team (Late st Contact Info) Description 05/18/2021 Telephone [facility] Bone Marrow Transplant [address] [facility] Medicine 7th Floor, [place] [address] Melody Bolanos V. 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 Lissy Johnson RN +AFB stain 06/17/2024 06/17/2024 06/18/2024 10:45 AM CDT C. 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 07/23/2024 07/24/2024 07/24/2024 4:49 AM CDT documented as of this encounter Care Teams Excelsior Cutter Relationship Specialty Start Date End Date Kirt Lindsay DO PCP - General Internal Medicine 02/02/21 Josué Del Valle MD PhD Medical Oncologist/Digital Data Analyst Medical Oncology 08/26/19 Tay Charlton MD Consulting Physician Gastroenterology 12/03/21 06/11/23 Halie Khan MD [address] [place] [address] Consulting Physician Pulmonary Disease 12/12/21 3 Ant Starks MD [address] [facility] [address] [place] [address] Consulting Physician Transplant Hepatology 01/12/22 Cal Carranza DO [address] [place] [address] Commutator Inspector Internal Medicine 06/12/23 Halie Khan MD [address] [facility] [address] [place] [address] Gallery Host Critical Care Med 06/12/23 Wilfred Kinsey MD [address] [address] Consulting Physician Gastroenterology 03/02/24 documented as of this encounter
--- OUTSIDE RECORDS SUMMARY | 2024-12-15 16:51 | XMS_ITS | Encounter Summary ---
Author Organization [facility] Address [address] [facility] [address] [place] [address] Phone Care Team Providers Care Alterations Supervisor Name Role Phone Kirt Lindsay DO Primary Care Provider [phone] Josué Del Valle MD PhD Unavailable [phone] Halie Khan MD Primary Care Provider [phone] Kirt Lindsay DO Primary Care Provider [phone] Tay Charlton MD Unavailable [phone] Halie Khan MD Unavailable [phone] StarksAnt goldman MD Unavailable [phone] Dillon Calreed Dorado DO Unavailable [phone] Halie Khan MD Unavailable [phone] Wilfred Kinsey MD Unavailable Encounter Details Date Type Department Care Team (Latest Contact Info) Description 12/30/2017 Orders Only [facility] CONVERSION Scanning, Provider Social History Tobacco Use Types Packs/Day Years Used Date Smoking Tobacco: Every Day Sex and Gender Information Value Date Recorded Sex Assigned at Not on file 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 Gender Identity Not on file Sexual Orientation Not on file documented as of this encounter Plan of Treatment Not on file documented as of this encounter Procedures Procedure Name Priority Date/Time Associated Diagnosis Comments PULMONARY FUNCTION TEST (PFT) 12/30/2017 1:11 PM CARE MANAGER CNA documented in this encounter Results * PULMONARY FUNCTION TEST (PFT) (12/30/2017 1:11 PM CARE MANAGER CNA) Anatomical Region Laterality Modality PFT us Provider [...] documented as of this encounter Care Teams Alterations Supervisor Relationship Specialty Start Date End Date Kirt Lindsay DO PCP - General 05/02/17 11/22/20 Halie Khan MD [address] [place] [address] PCP - General Critical Care Med 11/23/20 02/01/21 Kirt Lindsay DO PCP - General Internal Medicine 02/02/21 Josué Del Valle MD PhD Medical Oncologist/Meter Reader Medical Oncology 08/26/19 Tay Charlton MD [address] [place] [address] Consulting Physician Gastroenterology 12/03/21 06/11/23 Halie Khan MD [address] [place] [address] Consulting Physician Pulmonary Disease 12/12/21 3 Ant Starks MD [address] [place] [address] Consulting Physician Transplant Hepatology 01/12/22 Cal Carranza DO [address] [address] Senior Trainer Internal Medicine 06/12/23 Halie Khan MD [address] [facility] [address] [place] [address] Feather Trimmer Critical Care Med 06/12/23 Wilfred Kinsey MD [address] [address] Consulting Physician Gastroenterology 03/02/24 documented as of this encounter
--- OUTSIDE RECORDS SUMMARY | 2024-12-15 16:51 | XMS_ITS | Encounter Summary ---
Author Organization [facility] Address [address] [place] [address] Phone Care Team Providers Care Leadership Development Instructor Name Role Phone Josué Del Valle MD PhD Unavailable [phone] Kirt Lindsay DO Primary Care Provider [phone] Tay Charlton MD Unavailable [phone] Halie Khan MD Unavailable [phone] Ant Starks MD Unavailable [phone] Cal Carranza DO Unavailable [phone] Halie Khan MD Unavailable [phone] Wilfred Kinsey MD Unavailable Encounter Details Date Type Department Care Team (Late st Contact Info) Description 12/31/2022 Telephone [facility] Oncology [address] [facility] 7th [place] [address] [place] [address] Irina Conrad Social History Tobacco [...] file 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 Gender Identity Not on file Sexual [...] documented as of this encounter Care Teams Leadership Development Instructor Relationship Specialty Start Date End Date Kirt Lindsay DO PCP - General Internal Medicine 02/02/21 Josué Del Valle MD PhD Medical Oncologist/Slip Mixer Medical Oncology 08/26/19 Tay Charlton MD Consulting Physician Gastroenterology 12/03/21 06/11/23 Halie Khan MD [address] [address] Consulting Physician Pulmonary Disease 12/12/21 3 Ant Starks MD [address] [address] Consulting Physician Transplant Hepatology 01/12/22 Cal Carranza DO [address] [address] Supervisor Hot Dip Plating Internal Medicine 06/12/23 Halie Khan MD [address] [address] Rn Or Lvn Critical Care Med 06/12/23 Wilfred Kinsey MD [address] [facility] [address] [place] [address] Consulting Physician Gastroenterology 03/02/24 documented as of this encounter
[2024-12-15] MEDS: SODIUM CHLORIDE 0.9% IV 2,000 ML 999 ML IV CONT (17:26)
[2024-12-15] MEDS: ONDANSETRON INJ 4 MG/2 ML VIAL IV PUSH (17:27)
[2024-12-15] MEDS: HYDROmorphone HCL INJ (*CRX) 1 MG/ML SYR 0.5 MG IV PUSH (17:27)
[2024-12-15 17:55] LABS: Basophils Absolute Auto 0.1 K/mm3 (0.0-0.1); Basophils Percent Auto 0.4 % (0.2-1.2); Eosinophils Absolute Auto 0.1 K/mm3 (0-0.3); Eosinophils Percent Auto 0.4 % (0-4.4); Hematocrit 37.7 % (42.0-52.0); Hemoglobin 12.2 g/dL (14.0-18.0); Immature Granulocyte Absolute 0.08 K/mm3 (0.00-0.031); Immature Granulocyte Percent A 0.6 % (0-0.5); Lymphocytes Absolute Auto 2.24 K/mm3 (0.9-3.2); Lymphocytes Percent Auto 16.8 % (18.3-44.2); Mean Corpuscular HGB Conc 32.4 g/dl (32-36); Mean Corpuscular Hemoglobin 34.1 pg (26-34); Mean Corpuscular Volume 105.3 fl (80-100); Mean Platelet Volume 10.4 fl (7.4-10.4); Monocytes Absolute Auto 1.3 K/mm3 (0.1-0.6); Monocytes Percent Auto 9.5 % (2.6-8.5); Neutrophils Absolute Auto 9.7 K/mm3 (1.3-6.7); Neutrophils Percent Auto 72.3 % (45.5-73.1); Platelet Count Result 415 k/mm3 (150-375); Red Blood Count 3.58 M/mm3 (4.6-6.20); Red Cell Distribution Width 13.7 % (11.5-14.5); White Blood Count 13.4 K/mm3 (4.5-10.0)
[2024-12-15 18:06] LABS: Lactic Acid Reflex 2.6 mmol/L (0.7-2.0)
[2024-12-15 18:08] LABS: Ethanol < 10 mg/dL (<10)
[2024-12-15 18:10] LABS: Salicylate < 1.0 mg/dL (2-20)
[2024-12-15 18:11] LABS: INR 1.9; Prothrombin Time 22.4 Seconds (11.1-14.7)
[2024-12-15 18:12] LABS: Partial Thromboplastin Time 39.9 Seconds (22.3-36.8)
[2024-12-15 18:17] LABS: Albumin Level 3.2 g/dL (3.5-5.1); Alkaline Phosphatase 191 U/L (38-126); Blood Urea Nitrogen 24 mg/dL (9-20); Calcium 8.6 mg/dL (8.4-10.2); Carbon Dioxide > 40 mmol/L (22-30); Chloride 99 mmol/L (98-107); Creatine Kinase 26 U/L (55-170); Estimated CRCL calculation 67 ml/min; Estimated Glomerular Filt Rate > 60; Glucose 164 mg/dL (65-110); Lipase 55 U/L (23-300); Magnesium 1.4 mg/dL (1.6-2.3); Phosphorus 2.7 mg/dL (2.5-4.5); Potassium 4.6 mmol/L (3.4-5.0); Sodium 142 mmol/L (137-145)
[2024-12-15 18:21] LABS: Platelet Estimate Increased (Adequate)
[2024-12-15 18:22] LABS: Hypochromasia 1+; Ovalocytes 1+; Target Cells 1+
[2024-12-15 18:23] LABS: Schistocytes None Seen
[2024-12-15 18:30] LABS: Influenza A QL RT-PCR Negative (Negative); Influenza B QL RT-PCR Negative (Negative); RSV RNA, RT-PCR Negative (Negative); SARS-CoV-2 RNA PCR Negative (Negative)
[2024-12-15 18:30] LABS: Troponin I < 0.012 ng/mL (0.000-0.034)
[2024-12-15 18:39] LABS: Alanine Aminotransferase 1203 U/L (6-50); Aspartate Amino Transferase 1375 U/L (17-59)
[2024-12-15 18:44] LABS: Thyroid Stimulating Hormone Reflex 0.237 uIU/mL (0.465-4.68)
[2024-12-15 19:22] LABS: Free T4 Free Thyroxine Reflex 2.23 ng/dL (0.78-2.19)
--- NOTE | 2024-12-15 20:45 | ED.GENADULT ---
HPI - General Adult General Chief complaint: Nausea/Vomiting/Diarrhea <Fer Elliott MD - Last Filed: 12/15/24 22:17> Stated complaint: ?sepsis <Fer Elliott MD - Last Filed: 12/15/24 22:17> Time Seen by Provider: 12/15/24 16:42 <Fer Elliott MD - Last Filed: 12/15/24 22:17> History of Present Illness HPI narrative: This is a 59-year-old male with history of leukemia and COPD presenting with abdominal pain, nausea vomiting. Symptoms started earlier today. The abdominal pain is in the epigastric area it is a sharp burning pain. Patient has poor respiratory status baseline with his is not worse than usual. He does have recurrent pneumonia. Patient was transferred out of our hospital on November 28 due to cavitary lesions concerning for MAC. He was transferred to [facility] for infectious disease evaluation. <Fer Elliott MD - Last Filed: 12/15/24 22:17> Related Data Home medications: Home Medications ?Medication ?Instructions ?Recorded ?Confirmed ?Last Taken ?Type rivaroxaban 20 mg tablet (Xarelto) 20 mg PO QAM 02/06/23 11/21/24 11/20/24 17:03 History 20 mg albuterol sulfate 90 mcg/actuation 1 puff inhalation Q4-6H PRN 10/23/24 11/21/24 11/19/24 16:00 History aerosol inhaler Shortness Of Breath Or Wheezing 1 puff ondansetron 4 mg disintegrating 4 mg PO Q8H PRN Nausea And Vomiting 10/23/24 11/21/24 11/20/24 17:04 History tablet 4 mg pantoprazole 40 mg tablet,delayed 40 mg PO Q12H 10/23/24 11/21/24 11/20/24 17:00 History release 40 mg clofazimine 50 mg capsule 100 mg PO DAILY 11/25/24 11/25/24 Unknown History ethambutol 400 mg tablet 1,200 mg PO DAILY 11/25/24 11/25/24 Unknown History isavuconazonium sulfate 186 mg 372 mg PO DAILY 11/25/24 11/25/24 Unknown History capsule (Cresemba) <Fer Elliott MD - Last Filed: 12/15/24 22:17> Allergies/adverse reactions: Allergies Allergy/AdvReac Type Severity Reaction Status Date / Time adhesive tape AdvReac Unknown PAPER Verified 12/15/24 16:24 TAPE,REDNESS AND IRRITATION <Fer Elliott MD - Last Filed: 12/15/24 22:17> [facility] Past Medical History Medical History: Medical History Pancreatitis Non-tuberculous mycobacterial pneumonia MSSA bacteremia Osteopenia Pseudomonas pneumonia Mycobacterium avium complex Chronic mdhhm-vshgfo-lkdn disease Chronic respiratory failure with hypoxia, on home oxygen therapy Coronary artery disease Pill esophagitis ST elevation (STEMI) myocardial infarction (12/30/22) Chronic anticoagulation Immunocompromised patient patient on anti rejection medications Positive nasal culture for methicillin resistant Staphylococcus aureus Deep venous thrombosis Insulin dependent type 2 diabetes mellitus Chronic obstructive pulmonary disease Sciatica Eczema Anxiety Depression Peyronie's disease Emphysema/COPD 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) History of cataract extraction with lens replacement History of heart artery stent (12/30/22) 100% occlusion mid RCA s/p drug-eluting stent, left coronary system with lfzu-fo-kbkhbefx disease History of orthopedic surgery Left tibia liz placement <Fer Elliott MD - Last Filed: 12/15/24 22:17> Family History Family History: Family History Mother Acute myocardial infarction, Onset Age: 42 Father COPD (chronic obstructive pulmonary disease) Diabetes mellitus Alcohol abuse <Fer Elliott MD - Last Filed: 12/15/24 22:17> Social History Social History: Social History Social History: Surrogate medical decision maker: Lissy Kaiser, friend/roommate. Code status: Full code. Years smoked: 44 Smoking status: Current some day smoker Tobacco type: cigarettes Smoking end date: 08/07/22 Additional smoking assessment comments: on nicotine patches, states he is currently on patches Alcohol intake: former Substance use: never Substance use type: does not use Do You Feel Safe in your Home?: Yes Lack of Transportation: No Lack of Food: Never True Current Housing: I Have Housing Concerned About Future Housing: No Difficulty Paying Gas/Electric Bills: No Difficulty Paying for Meds: No Currently Unemployed: No Education: Trade/Vocational Certificate Difficulty w/ Childcare or Family Care: No Living arrangements: with friend(s) Additional living arrangements comments: He lives with his roommate in [place]. Occupation/Education: unemployed Spiritual care concerns: No Agree to blood products: Yes <Fer Elliott MD - Last Filed: 12/15/24 22:17> Exam Narrative: APPEARANCE: Patient appears chronically unwell, Patient appears older than his stated age Head: atraumatic. EYES: EOMI, NOSE: Atraumatic NECK: Trachea midline RESPIRATORY: No increased rate of breathing, clear to auscultation CARDIOVASCULAR: RRR, ABDOMINAL: Non-distended, mild tenderness in the epigastric region no guarding rebound MUSCULOSKELETAl: No obvious deformities NEURO: Alert. Moving 4/4 extremities SKIN:: Warm, dry. Normal color PSYCHIATRIC: Normal affect <Fer Elliott MD - Last Filed: 12/15/24 22:17> Course Course Emergency Course: Patient endorsed to me by previous provider awaiting consultation with the [facility] transfer service. I spoke to Dr. Diego from the [facility]plant Service who will be the admitting service for him given his leukemia history. We went over patient's care, mycoplasma avium complex treatment plan and the current status of the patient including sepsis without shock and elevated transaminitis. His formal recommendations were for transfer to their facility, discontinue his mycoplasma avium complex medications but continuing his tacrolimus and CellCept. Continuing vancomycin cefepime and fluid hydration. He was placed on the waitlist for transfer at this time given the bed availability status. Patient was declined from admission to our hospital service secondary to his complex medical history and lack of infectious disease support. Patient will remain in the emergency department pending bed availability in transfer. Accepting physician Dr. Ayala at the [facility], bone marrow transplant service. <Damien Ludwig MD - Last Filed: 12/15/24 22:51> Vital Signs Vital signs: Vital Signs Temperature 36.3 C L 12/15/24 16:19 Pulse Rate 106 H 12/15/24 16:19 Respiratory Rate 24 H 12/15/24 16:19 Blood Pressure 89/70 L 12/15/24 16:19 Pulse Oximetry 100 12/15/24 16:19 Oxygen Delivery Nasal Cannula 12/15/24 16:19 Oxygen Flow Rate 4 12/15/24 16:19 Temperature 36.4 C 12/15/24 16:31 Pulse Rate 100 12/15/24 18:16 Respiratory Rate 151 H 12/15/24 18:16 Blood Pressure 150/83 H 12/15/24 18:16 Pulse Oximetry 100 12/15/24 18:16 Oxygen Delivery Nasal Cannula 12/15/24 16:19 Oxygen Flow Rate 4 12/15/24 16:19 <Fer Elliott MD - Last Filed: 12/15/24 22:17> Vital Signs Temperature 36.3 C L 12/15/24 16:19 Pulse Rate 106 H 12/15/24 16:19 Respiratory Rate 24 H 12/15/24 16:19 Blood Pressure 89/70 L 12/15/24 16:19 Pulse Oximetry 100 12/15/24 16:19 Oxygen Delivery Nasal Cannula 12/15/24 16:19 Oxygen Flow Rate 4 12/15/24 16:19 Temperature 36.4 C 12/15/24 16:31 Pulse Rate 100 12/15/24 18:16 Respiratory Rate 151 H 12/15/24 18:16 Blood Pressure 150/83 H 12/15/24 18:16 Pulse Oximetry 100 12/15/24 18:16 Oxygen Delivery Nasal Cannula 12/15/24 16:19 Oxygen Flow Rate 4 12/15/24 16:19 <Damien Ludwig MD - Last Filed: 12/15/24 22:51> Medical Decision Making MDM Narrative Medical decision making narrative: -Course: 59-year-old male with multiple medical comorbidities presenting for abdominal pain nausea vomiting. On arrival he was hypotensive and tachycardic. full sepsis workup was obtained. CT abdomen pelvis showed pulmonary nodules that are increasing in size. Chest x-ray shows diffuse infiltrates. Patient meets sepsis criteria. Cultures obtained. Patient given 30 cc/kilogram bolus and started on broad-spectrum antibiotics to cover pneumonia. Patient also found to have elevated liver enzymes with an AST ALT of 135/1203. Alk-phos 191. Bilirubin 1.0. TSH is slightly low with an mildly elevated free T4. Patient is on antibiotics for MAC infection and he is immunocompromised. Given his complexity of care transferred back to [facility] for infectious disease management. <Fer Elliott MD - Last Filed: 12/15/24 22:17> Vital Signs Vital Signs: Vital Signs Temperature 36.3 C L 12/15/24 16:19 Pulse Rate 106 H 12/15/24 16:19 Respiratory Rate 24 H 12/15/24 16:19 Blood Pressure 89/70 L 12/15/24 16:19 Pulse Oximetry 100 12/15/24 16:19 Oxygen Delivery Nasal Cannula 12/15/24 16:19 Oxygen Flow Rate 4 12/15/24 16:19 Temperature 36.4 C 12/15/24 16:31 Pulse Rate 100 12/15/24 18:16 Respiratory Rate 151 H 12/15/24 18:16 Blood Pressure 150/83 H 12/15/24 18:16 Pulse Oximetry 100 12/15/24 18:16 Oxygen Delivery Nasal Cannula 12/15/24 16:19 Oxygen Flow Rate 4 12/15/24 16:19 <Fer Elliott MD - Last Filed: 12/15/24 22:17> Vital Signs Temperature 36.3 C L 12/15/24 16:19 Pulse Rate 106 H 12/15/24 16:19 Respiratory Rate 24 H 12/15/24 16:19 Blood Pressure 89/70 L 12/15/24 16:19 Pulse Oximetry 100 12/15/24 16:19 Oxygen Delivery Nasal Cannula 12/15/24 16:19 Oxygen Flow Rate 4 12/15/24 16:19 Temperature 36.4 C 12/15/24 16:31 Pulse Rate 100 12/15/24 18:16 Respiratory Rate 151 H 12/15/24 18:16 Blood Pressure 150/83 H 12/15/24 18:16 Pulse Oximetry 100 12/15/24 18:16 Oxygen Delivery Nasal Cannula 12/15/24 16:19 Oxygen Flow Rate 4 12/15/24 16:19 <Damien Ludwig MD - Last Filed: 12/15/24 22:51> Lab Data Result diagrams: 12/15/24 17:40 12/15/24 17:39 <Fer Elliott MD - Last Filed: 12/15/24 22:17> Labs: Lab Results 12/15/24 12/15/24 12/15/24 Range/Units 17:39 17:40 20:57 WBC 13.4 H (4.5-10.0) K/mm3 RBC 3.58 L (4.6-6.20) M/mm3 Hgb 12.2 L (14.0-18.0) g/dL Hct 37.7 L (42.0-52.0) % MCV 105.3 H (80-100) fl MCH 34.1 H (26-34) pg MCHC 32.4 (32-36) g/dl RDW 13.7 (11.5-14.5) % Plt Count 415 H (150-375) k/mm3 MPV 10.4 (7.4-10.4) fl Immature Gran % (Auto) 0.6 H (0-0.5) % Neut % (Auto) 72.3 (45.5-73.1) % Lymph % (Auto) 16.8 L (18.3-44.2) % [place] % (Auto) 9.5 H (2.6-8.5) % Eos % (Auto) 0.4 (0-4.4) % Baso % (Auto) 0.4 (0.2-1.2) % Lymph # (Auto) 2.24 (0.9-3.2) K/mm3 [place] # (Auto) 1.3 H (0.1-0.6) K/mm3 Eos # (Auto) 0.1 (0-0.3) K/mm3 Baso # (Auto) 0.1 (0.0-0.1) K/mm3 Abs Immat Gran (auto) 0.08 H (0.00-0.031) K/mm3 Absolute Neuts (auto) 9.7 H (1.3-6.7) K/mm3 Absolute Nucleated RBC 0.000 (0.0-0.012) K/mm3 Nucleated RBC % 0.0 (0.0-0.2) % Platelet Estimate Increased (Adequate) Hypochromasia 1+ Target Cells 1+ Ovalocytes 1+ Schistocytes None seen PT 22.4 H (11.1-14.7) Seconds INR 1.9 APTT 39.9 H (22.3-36.8) Seconds Sodium 142 (137-145) mmol/L Potassium 4.6 (3.4-5.0) mmol/L Chloride 99 (98-107) mmol/L Carbon Dioxide > 40 H (22-30) mmol/L Anion Gap (4-12) mmol/L BUN 24 H (9-20) mg/dL Creatinine 0.88 (0.7-1.3) mg/dL Estim Creat Clear Calc 67 ml/min Estimated GFR > 60 (59 - ) Glucose 164 H (65-110) mg/dL Lactic Acid 2.6 H (0.7-2.0) mmol/L Calcium 8.6 (8.4-10.2) mg/dL Phosphorus 2.7 (2.5-4.5) mg/dL Magnesium 1.4 L (1.6-2.3) mg/dL Total Bilirubin 1.0 (0.2-1.3) mg/dL AST 1375 H (17-59) U/L ALT 1203 H (6-50) U/L Alkaline Phosphatase 191 H (38-126) U/L Total Creatine Kinase 26 L (55-170) U/L Troponin I < 0.012 < 0.012 (0.000-0.034) ng/mL Total Protein 7.0 (6.3-8.2) g/dL Albumin 3.2 L (3.5-5.1) g/dL Lipase 55 (23-300) U/L TSH (Reflex) 0.237 L (0.465-4.68) uIU/mL Free T4 2.23 H (0.78-2.19) ng/dL Urine Color Dark yellow (Yellow) Urine Appearance Clear (Clear) Urine pH 5.5 (5.0-9.0) Ur Specific [place] 1.022 (1.001-1.035) Urine Protein Trace (Negative) mg/dL Urine Glucose (UA) Negative (Negative) mg/dL Urine Ketones Negative (Negative) mg/dL Ur Blood (Man) Negative (Negative) Urine Nitrate Negative (Negative) Urine Bilirubin Negative (Negative) Urine Urobilinogen 1.0 (<2.0) mg/dL Add Ur Microanalysis Reviewed Leukocyte Esterase Rfl Negative (Negative) CHRISTOPHER/UL Urine RBC 0-2 (0-2) /hpf Urine WBC 0-5 (0-3) /hpf Ur Squamous Epith Cells None seen (Few) /hpf Urine Bacteria None seen /hpf Urine Casts 3-5 Hyaline Casts Present (None) /lpf Nasal MRSA (PCR) (NOT DETECTE) Salicylates < 1.0 L (2-20) mg/dL Urine Opiates Screen Negative (Negative) Urine Methadone Screen Negative (Negative) Ur Barbiturates Screen Negative (Negative) Ur Phencyclidine Scrn Negative (Negative) Ur Amphetamine Screen Negative (Negative) U Benzodiazepines Scrn Negative (Negative) Urine Cocaine Screen Negative (Negative) U Cannabinoids Screen Negative (Negative) Ethyl Alcohol < 10 (<10) mg/dL Influenza A (RT-PCR) Negative (Negative) Influenza B (RT-PCR) Negative (Negative) RSV (RT-PCR) Negative (Negative) SARS-CoV-2 RNA (RT-PCR) Negative (Negative) 12/15/24 12/15/24 Range/Units 21:22 21:49 WBC (4.5-10.0) K/mm3 RBC (4.6-6.20) M/mm3 Hgb (14.0-18.0) g/dL Hct (42.0-52.0) % MCV (80-100) fl MCH (26-34) pg MCHC (32-36) g/dl RDW (11.5-14.5) % Plt Count (150-375) k/mm3 MPV (7.4-10.4) fl Immature Gran % (Auto) (0-0.5) % Neut % (Auto) (45.5-73.1) % Lymph % (Auto) (18.3-44.2) % [place] % (Auto) (2.6-8.5) % Eos % (Auto) (0-4.4) % Baso % (Auto) (0.2-1.2) % Lymph # (Auto) (0.9-3.2) K/mm3 [place] # (Auto) (0.1-0.6) K/mm3 Eos # (Auto) (0-0.3) K/mm3 Baso # (Auto) (0.0-0.1) K/mm3 Abs Immat Gran (auto) (0.00-0.031) K/mm3 Absolute Neuts (auto) (1.3-6.7) K/mm3 Absolute Nucleated RBC (0.0-0.012) K/mm3 Nucleated RBC % (0.0-0.2) % Platelet Estimate (Adequate) Hypochromasia Target Cells Ovalocytes Schistocytes PT (11.1-14.7) Seconds INR APTT (22.3-36.8) Seconds Sodium (137-145) mmol/L Potassium (3.4-5.0) mmol/L Chloride (98-107) mmol/L Carbon Dioxide (22-30) mmol/L Anion Gap (4-12) mmol/L BUN (9-20) mg/dL Creatinine (0.7-1.3) mg/dL Estim Creat Clear Calc ml/min Estimated GFR (59 - ) Glucose (65-110) mg/dL Lactic Acid 2.0 (0.7-2.0) mmol/L Calcium (8.4-10.2) mg/dL Phosphorus (2.5-4.5) mg/dL Magnesium (1.6-2.3) mg/dL Total Bilirubin (0.2-1.3) mg/dL AST (17-59) U/L ALT (6-50) U/L Alkaline Phosphatase (38-126) U/L Total Creatine Kinase (55-170) U/L Troponin I (0.000-0.034) ng/mL Total Protein (6.3-8.2) g/dL Albumin (3.5-5.1) g/dL Lipase (23-300) U/L TSH (Reflex) (0.465-4.68) uIU/mL Free T4 (0.78-2.19) ng/dL Urine Color (Yellow) Urine Appearance (Clear) Urine pH (5.0-9.0) Ur Specific [place] (1.001-1.035) Urine Protein (Negative) mg/dL Urine Glucose (UA) (Negative) mg/dL Urine Ketones (Negative) mg/dL Ur Blood (Man) (Negative) Urine Nitrate (Negative) Urine Bilirubin (Negative) Urine Urobilinogen (<2.0) mg/dL Add Ur Microanalysis Leukocyte Esterase Rfl (Negative) CHRISTOPHER/UL Urine RBC (0-2) /hpf Urine WBC (0-3) /hpf Ur Squamous Epith Cells (Few) /hpf Urine Bacteria /hpf Urine Casts Hyaline Casts (None) /lpf Nasal MRSA (PCR) Not detected (NOT DETECTE) Salicylates (2-20) mg/dL Urine Opiates Screen (Negative) Urine Methadone Screen (Negative) Ur Barbiturates Screen (Negative) Ur Phencyclidine Scrn (Negative) Ur Amphetamine Screen (Negative) U Benzodiazepines Scrn (Negative) Urine Cocaine Screen (Negative) U Cannabinoids Screen (Negative) Ethyl Alcohol (<10) mg/dL Influenza A (RT-PCR) (Negative) Influenza B (RT-PCR) (Negative) RSV (RT-PCR) (Negative) SARS-CoV-2 RNA (RT-PCR) (Negative) <Fer Elliott MD - Last Filed: 12/15/24 22:17> Lab Results 12/15/24 12/15/24 12/15/24 Range/Units 17:39 17:40 20:57 WBC 13.4 H (4.5-10.0) K/mm3 RBC 3.58 L (4.6-6.20) M/mm3 Hgb 12.2 L (14.0-18.0) g/dL Hct 37.7 L (42.0-52.0) % MCV 105.3 H (80-100) fl MCH 34.1 H (26-34) pg MCHC 32.4 (32-36) g/dl RDW 13.7 (11.5-14.5) % Plt Count 415 H (150-375) k/mm3 MPV 10.4 (7.4-10.4) fl Immature Gran % (Auto) 0.6 H (0-0.5) % Neut % (Auto) 72.3 (45.5-73.1) % Lymph % (Auto) 16.8 L (18.3-44.2) % [place] % (Auto) 9.5 H (2.6-8.5) % Eos % (Auto) 0.4 (0-4.4) % Baso % (Auto) 0.4 (0.2-1.2) % Lymph # (Auto) 2.24 (0.9-3.2) K/mm3 [place] # (Auto) 1.3 H (0.1-0.6) K/mm3 Eos # (Auto) 0.1 (0-0.3) K/mm3 Baso # (Auto) 0.1 (0.0-0.1) K/mm3 Abs Immat Gran (auto) 0.08 H (0.00-0.031) K/mm3 Absolute Neuts (auto) 9.7 H (1.3-6.7) K/mm3 Absolute Nucleated RBC 0.000 (0.0-0.012) K/mm3 Nucleated RBC % 0.0 (0.0-0.2) % Platelet Estimate Increased (Adequate) Hypochromasia 1+ Target Cells 1+ Ovalocytes 1+ Schistocytes None seen PT 22.4 H (11.1-14.7) Seconds INR 1.9 APTT 39.9 H (22.3-36.8) Seconds Sodium 142 (137-145) mmol/L Potassium 4.6 (3.4-5.0) mmol/L Chloride 99 (98-107) mmol/L Carbon Dioxide > 40 H (22-30) mmol/L Anion Gap (4-12) mmol/L BUN 24 H (9-20) mg/dL Creatinine 0.88 (0.7-1.3) mg/dL Estim Creat Clear Calc 67 ml/min Estimated GFR > 60 (59 - ) Glucose 164 H (65-110) mg/dL Lactic Acid 2.6 H (0.7-2.0) mmol/L Calcium 8.6 (8.4-10.2) mg/dL Phosphorus 2.7 (2.5-4.5) mg/dL Magnesium 1.4 L (1.6-2.3) mg/dL Total Bilirubin 1.0 (0.2-1.3) mg/dL AST 1375 H (17-59) U/L ALT 1203 H (6-50) U/L Alkaline Phosphatase 191 H (38-126) U/L Total Creatine Kinase 26 L (55-170) U/L Troponin I < 0.012 < 0.012 (0.000-0.034) ng/mL Total Protein 7.0 (6.3-8.2) g/dL Albumin 3.2 L (3.5-5.1) g/dL Lipase 55 (23-300) U/L TSH (Reflex) 0.237 L (0.465-4.68) uIU/mL Free T4 2.23 H (0.78-2.19) ng/dL Urine Color Dark yellow (Yellow) Urine Appearance Clear (Clear) Urine pH 5.5 (5.0-9.0) Ur Specific [place] 1.022 (1.001-1.035) Urine Protein Trace (Negative) mg/dL Urine Glucose (UA) Negative (Negative) mg/dL Urine Ketones Negative (Negative) mg/dL Ur Blood (Man) Negative (Negative) Urine Nitrate Negative (Negative) Urine Bilirubin Negative (Negative) Urine Urobilinogen 1.0 (<2.0) mg/dL Add Ur Microanalysis Reviewed Leukocyte Esterase Rfl Negative (Negative) CHRISTOPHER/UL Urine RBC 0-2 (0-2) /hpf Urine WBC 0-5 (0-3) /hpf Ur Squamous Epith Cells None seen (Few) /hpf Urine Bacteria None seen /hpf Urine Casts 3-5 Hyaline Casts Present (None) /lpf Nasal MRSA (PCR) (NOT DETECTE) Salicylates < 1.0 L (2-20) mg/dL Urine Opiates Screen Negative (Negative) Urine Methadone Screen Negative (Negative) Ur Barbiturates Screen Negative (Negative) Ur Phencyclidine Scrn Negative (Negative) Ur Amphetamine Screen Negative (Negative) U Benzodiazepines Scrn Negative (Negative) Urine Cocaine Screen Negative (Negative) U Cannabinoids Screen Negative (Negative) Ethyl Alcohol < 10 (<10) mg/dL Influenza A (RT-PCR) Negative (Negative) Influenza B (RT-PCR) Negative (Negative) RSV (RT-PCR) Negative (Negative) SARS-CoV-2 RNA (RT-PCR) Negative (Negative) 12/15/24 12/15/24 Range/Units 21:22 21:49 WBC (4.5-10.0) K/mm3 RBC (4.6-6.20) M/mm3 Hgb (14.0-18.0) g/dL Hct (42.0-52.0) % MCV (80-100) fl MCH (26-34) pg MCHC (32-36) g/dl RDW (11.5-14.5) % Plt Count (150-375) k/mm3 MPV (7.4-10.4) fl Immature Gran % (Auto) (0-0.5) % Neut % (Auto) (45.5-73.1) % Lymph % (Auto) (18.3-44.2) % [place] % (Auto) (2.6-8.5) % Eos % (Auto) (0-4.4) % Baso % (Auto) (0.2-1.2) % Lymph # (Auto) (0.9-3.2) K/mm3 [place] # (Auto) (0.1-0.6) K/mm3 Eos # (Auto) (0-0.3) K/mm3 Baso # (Auto) (0.0-0.1) K/mm3 Abs Immat Gran (auto) (0.00-0.031) K/mm3 Absolute Neuts (auto) (1.3-6.7) K/mm3 Absolute Nucleated RBC (0.0-0.012) K/mm3 Nucleated RBC % (0.0-0.2) % Platelet Estimate (Adequate) Hypochromasia Target Cells Ovalocytes Schistocytes PT (11.1-14.7) Seconds INR APTT (22.3-36.8) Seconds Sodium (137-145) mmol/L Potassium (3.4-5.0) mmol/L Chloride (98-107) mmol/L Carbon Dioxide (22-30) mmol/L Anion Gap (4-12) mmol/L BUN (9-20) mg/dL Creatinine (0.7-1.3) mg/dL Estim Creat Clear Calc ml/min Estimated GFR (59 - ) Glucose (65-110) mg/dL Lactic Acid 2.0 (0.7-2.0) mmol/L Calcium (8.4-10.2) mg/dL Phosphorus (2.5-4.5) mg/dL Magnesium (1.6-2.3) mg/dL Total Bilirubin (0.2-1.3) mg/dL AST (17-59) U/L ALT (6-50) U/L Alkaline Phosphatase (38-126) U/L Total Creatine Kinase (55-170) U/L Troponin I (0.000-0.034) ng/mL Total Protein (6.3-8.2) g/dL Albumin (3.5-5.1) g/dL Lipase (23-300) U/L TSH (Reflex) (0.465-4.68) uIU/mL Free T4 (0.78-2.19) ng/dL Urine Color (Yellow) Urine Appearance (Clear) Urine pH (5.0-9.0) Ur Specific [place] (1.001-1.035) Urine Protein (Negative) mg/dL Urine Glucose (UA) (Negative) mg/dL Urine Ketones (Negative) mg/dL Ur Blood (Man) (Negative) Urine Nitrate (Negative) Urine Bilirubin (Negative) Urine Urobilinogen (<2.0) mg/dL Add Ur Microanalysis Leukocyte Esterase Rfl (Negative) CHRISTOPHER/UL Urine RBC (0-2) /hpf Urine WBC (0-3) /hpf Ur Squamous Epith Cells (Few) /hpf Urine Bacteria /hpf Urine Casts Hyaline Casts (None) /lpf Nasal MRSA (PCR) Not detected (NOT DETECTE) Salicylates (2-20) mg/dL Urine Opiates Screen (Negative) Urine Methadone Screen (Negative) Ur Barbiturates Screen (Negative) Ur Phencyclidine Scrn (Negative) Ur Amphetamine Screen (Negative) U Benzodiazepines Scrn (Negative) Urine Cocaine Screen (Negative) U Cannabinoids Screen (Negative) Ethyl Alcohol (<10) mg/dL Influenza A (RT-PCR) (Negative) Influenza B (RT-PCR) (Negative) RSV (RT-PCR) (Negative) SARS-CoV-2 RNA (RT-PCR) (Negative) <Damien Ludwig MD - Last Filed: 12/15/24 22:51> ABG Data ABG results: 12/15/24 20:59 Puncture Site Right radial ABG pH 7.404 ABG pCO2 45.2 H ABG pO2 76.8 L ABG PO2/FiO2 Ratio 3.20 ABG HCO3 27.6 H ABG O2 Saturation 95.3 ABG O2 Content 16.3 ABG Base Excess 2.4 A-a Gradient 40.5 Oxyhemoglobin 93.7 Total Hemoglobin 12.3 O2 Delivery Device Nasal cannula O2 Liters/Min 1.0 FiO2 24 <Fer Elliott MD - Last Filed: 12/15/24 22:17> 12/15/24 20:59 Puncture Site Right radial ABG pH 7.404 ABG pCO2 45.2 H ABG pO2 76.8 L ABG PO2/FiO2 Ratio 3.20 ABG HCO3 27.6 H ABG O2 Saturation 95.3 ABG O2 Content 16.3 ABG Base Excess 2.4 A-a Gradient 40.5 Oxyhemoglobin 93.7 Total Hemoglobin 12.3 O2 Delivery Device Nasal cannula O2 Liters/Min 1.0 FiO2 24 <Damien Ludwig MD - Last Filed: 12/15/24 22:51> Discharge Plan Discharge Clinical Impression: Sepsis, Mycoplasma pneumonia <Fer Elliott MD - Last Filed: 12/15/24 22:17> Patient Disposition: Acute Care Hospital <Fer Elliott MD - Last Filed: 12/15/24 22:17> Condition: Stable <Fer Elliott MD - Last Filed: 12/15/24 22:17> Patient Language: Turkmen <Fer Elliott MD - Last Filed: 12/15/24 22:17> Prescriptions: No Action Xarelto 20 mg tablet 20 mg PO QAM Rx Instructions: must administer with evening meal ethambutol 400 mg tablet 1,200 mg PO DAILY clofazimine 50 mg capsule 100 mg PO DAILY Cresemba 186 mg capsule 372 mg PO DAILY pantoprazole 40 mg tablet,delayed release (DR/EC) 40 mg PO Q12H ondansetron 4 mg tablet,disintegrating 4 mg PO Q8H PRN (Reason: Nausea And Vomiting) albuterol sulfate 90 mcg/actuation HFA aerosol inhaler 1 puff INHALATION Q4-6H PRN (Reason: Shortness Of Breath Or Wheezing) acyclovir 400 mg tablet 400 mg PO TID Qty: 90 0RF clopidogrel 75 mg tablet 75 mg PO DAILY Qty: 90 0RF montelukast [Singulair] 10 mg tablet 10 mg PO HS Qty: 30 0RF mycophenolate mofetil 500 mg tablet 1,000 mg PO Q12H Qty: 10 0RF Rx Instructions: Please call your Oncology to send prescription for this medication and adjust the dose tacrolimus [Prograf] 0.5 mg capsule 0.5 mg PO EVERY OTHER DAY Qty: 30 0RF albuterol sulfate 2.5 mg /3 mL (0.083 %) solution for nebulization 2.5 mg inhalation Q6H PRN (Reason: Shortness Of Breath) Qty: 180 0RF <Fer Elliott MD - Last Filed: 12/15/24 22:17> Follow-up/Referrals: Kirt Lindsay, DO [Primary Care Provider] - <Fer Elliott MD - Last Filed: 12/15/24 22:17> Time of Disposition: 22:51 <Fer Elliott MD - Last Filed: 12/15/24 22:17> 22:51 <Damien Ludwig MD - Last Filed: 12/15/24 22:51>
[2024-12-15 20:51] LABS: Reflex Lactic Acid Yes or No Add Lactic
[2024-12-15 21:08] LABS: Alveolar/Arterial O2 Gradient 40.5 mmHg; Base Excess ABG 2.4 mEq/l (+/-2.0); Fractional Inspired Oxygen 24 %; HCO3 ABG 27.6 mEq/l (22.0-26.0); Oxygen Content ABG 16.3 %vol (16.0-22.0); Oxygen Saturation ABG 95.3 % (95.0-100.0); Oxyhemoglobin 93.7 % THb (90.0-100.0); PCO2 ABG 45.2 mmHg (35.0-45.0); PO2 ABG 76.8 mmHg (80.0-100.0); Total Hemoglobin 12.3 g/dL (12.0-18.0); pH ABG 7.404 (7.350-7.450)
[2024-12-15 21:10] LABS: Device NASAL CANNULA; Modified Allen's Test Pass; Site Drawn RIGHT RADIAL
[2024-12-15 21:24] LABS: Amphetamine Screen Urine Negative (Negative); Barbiturate Screen Urine Negative (Negative); Benzodiazepines Screen Urine Negative (Negative); Cannabinoid Screen Urine Negative (Negative); Cocaine Screen Urine Negative (Negative); Methadone Screen Urine Negative (Negative); Opiate Screen Urine Negative (Negative); Phencyclidine Screen Urine Negative (Negative)
[2024-12-15 21:32] LABS: Troponin I < 0.012 ng/mL (0.000-0.034)
[2024-12-15 21:34] LABS: Add Urine Microscopic? YES; Appearance Urine Clear (Clear); Bacteria Urine None Seen /hpf; Bilirubin Urine Negative (Negative); Blood Urine Negative (Negative); Color Urine Dark Yellow (Yellow); Glucose Urine UA Negative (Negative); Hyaline Casts Urine Present /lpf; Ketones Urine Negative (Negative); Leukocyte Esterase Ur Negative LEU/UL (Negative); Need Manual Microscopic Reviewed; Nitrate Urine Negative (Negative); Protein Urine Trace mg/dL (Negative); RBC Urine 0-2 /hpf (0-2); Specific Grav Ur 1.022 (1.001-1.035); Squamous Epithelial Cell Urine None Seen /hpf (Few); WBC Urine 0-5 /hpf (0-3); pH Urine 5.5 (5.0-9.0)
[2024-12-15] MEDS: MAGNESIUM SULF 2 GM/WATER 50ML 2 GM/50 ML BAG IVPB (22:06)
[2024-12-15] MEDS: CEFEPIME 2 GM/NS 50 ML 2 GM/50 ML BAG IVPB (22:07)
[2024-12-15 22:37] LABS: MRSA (PCR) NOT DETECTED (NOT DETECTE)
[2024-12-16] VITALS (62 sets, daily range): BP systolic 108–160; BP diastolic 71–100; PULSE 88–126; RESP 14–36; TEMP 37; O2SAT 93–100
[2024-12-16] MEDS: VANCOMYCIN 1,500 MG/NS 500 ML 1,500 MG/500 ML BAG 250 MG IVPB (00:01)
[2024-12-16] MEDS: MORPHINE SULFATE (*CRX) 4 MG/ML INJ IV PUSH (01:25)
[2024-12-16] MEDS: FAMOTIDINE 20 MG/2 ML VIAL IV PUSH (01:25)
[2024-12-16 06:10] LABS: Estimated CRCL calculation 131 ml/min; Estimated Glomerular Filt Rate > 60
[2024-12-16] MEDS: CEFEPIME 2 GM/NS 50 ML 2 GM/50 ML BAG IVPB ×2 (06:10→17:39)
[2024-12-16] MEDS: mycophenolate mofetiL 250 MG CAPSULE 1000 MG PO (09:01)
[2024-12-16] MEDS: TACROLIMUS 0.5 MG CAPSULE PO (09:02)
--- NOTE | 2024-12-16 09:32 | PC.NURSE ---
Patient continues to take pulse ox off of finger. patient educated on importance of keeping it on his finger so we can monitor his oxygen level
--- NOTE | 2024-12-16 11:15 | PC.NURSE ---
Report given to Delmy from [facility] transfer center for update. She states no beds available at this time.
[2024-12-16 14:43] LABS: Glucose Point of Care 124 mg/dl (65-105)
--- NOTE | 2024-12-16 14:45 | PC.NURSE ---
Pt. states he is a diabetic and takes insulin at home. Bedside B.S. obtained - 124.
--- NOTE | 2024-12-16 14:48 | PC.NURSE ---
Pt. requesting pain medication for 10/10 RUQ abdominal pain. MD Lainez notified. Pt. also does not have a diet order or B.S. checks. Verbal order provided by MD Lainez for clear liquid diet and ACHS B.S. checks.
--- NOTE | 2024-12-16 14:54 | PC.NURSE ---
dietary called for clear liquid tray delivery.
[2024-12-16] MEDS: HYDROmorphone HCL INJ (*CRX) 1 MG/ML SYR 0.5 MG IV PUSH ×2 (15:00→18:32)
[2024-12-17] VITALS (48 sets, daily range): BP systolic 107–156; BP diastolic 65–90; PULSE 79–103; RESP 11–20; TEMP 36.4; O2SAT 90–100
[2024-12-17] MEDS: mycophenolate mofetiL 250 MG CAPSULE 1000 MG PO ×3 (00:07→21:20)
[2024-12-17] MEDS: CEFEPIME 2 GM/NS 50 ML 2 GM/50 ML BAG IVPB ×4 (00:07→22:30)
[2024-12-17] MEDS: HYDROmorphone HCL INJ (*CRX) 1 MG/ML SYR 0.5 MG IV PUSH ×3 (00:12→16:07)
[2024-12-17 07:44] LABS: Basophils Absolute Auto 0.1 K/mm3 (0.0-0.1); Basophils Percent Auto 0.4 % (0.2-1.2); Eosinophils Absolute Auto 0.3 K/mm3 (0-0.3); Eosinophils Percent Auto 1.4 % (0-4.4); Hematocrit 32.3 % (42.0-52.0); Hemoglobin 10.5 g/dL (14.0-18.0); Immature Granulocyte Absolute 0.08 K/mm3 (0.00-0.031); Immature Granulocyte Percent A 0.4 % (0-0.5); Lymphocytes Absolute Auto 3.16 K/mm3 (0.9-3.2); Lymphocytes Percent Auto 17.7 % (18.3-44.2); Mean Corpuscular HGB Conc 32.5 g/dl (32-36); Mean Corpuscular Hemoglobin 34.7 pg (26-34); Mean Corpuscular Volume 106.6 fl (80-100); Mean Platelet Volume 10.8 fl (7.4-10.4); Monocytes Absolute Auto 1.2 K/mm3 (0.1-0.6); Monocytes Percent Auto 6.6 % (2.6-8.5); Neutrophils Absolute Auto 13.1 K/mm3 (1.3-6.7); Neutrophils Percent Auto 73.5 % (45.5-73.1); Nucleated Red Blood Cells Perc 0.2 % (0.0-0.2); Platelet Count Result 320 k/mm3 (150-375); Red Blood Count 3.03 M/mm3 (4.6-6.20); Red Cell Distribution Width 14.4 % (11.5-14.5); White Blood Count 17.8 K/mm3 (4.5-10.0)
[2024-12-17 08:06] LABS: Macrocytosis 1+ (NORMAL); Platelet Estimate Adequate (Adequate)
[2024-12-17 08:08] LABS: Alkaline Phosphatase 191 U/L (38-126); Anion Gap 6 mmol/L (4-12); Bilirubin,Total 0.8 mg/dL (0.2-1.3); Blood Urea Nitrogen 18 mg/dL (9-20); Burr Cells 1+; Calcium 8.5 mg/dL (8.4-10.2); Carbon Dioxide 28 mmol/L (22-30); Chloride 107 mmol/L (98-107); Estimated CRCL calculation 107 ml/min; Estimated Glomerular Filt Rate > 60; Glucose 115 mg/dL (65-110); Potassium 3.6 mmol/L (3.4-5.0); Sodium 141 mmol/L (137-145); Target Cells 1+
[2024-12-17 08:43] LABS: Alanine Aminotransferase 2705 U/L (6-50); Aspartate Amino Transferase 1463 U/L (17-59)
[2024-12-17] MEDS: TACROLIMUS 0.5 MG CAPSULE PO (08:53)
--- NOTE | 2024-12-17 11:15 | PC.NURSE ---
transfer update No bed assignment at [place] - remains on waitlist
--- NOTE | 2024-12-17 11:19 | PC.NURSE ---
spoke to Delmy at [facility] transfer line. no beds at this time
--- NOTE | 2024-12-17 16:24 | ED.PROGRESS ---
Subjective Date/time seen: 12/17/24 16:24 Interval history: 51-year-old male presents emergency department for evaluation for shortness of breath. Patient is continuing to get his CellCept and Prograf. Repeat labs did show that the patient had a potential worsening hemoglobin. Patient's initial hemoglobin was 12 and his repeat hemoglobin was 10.5. 10.5 is closer to his baseline. I suspect the patient was hemoconcentrated on his initial hemoglobin. Patient was Hemoccult negative on the digital rectal exam. At time of re-evaluation patient denies any complaints and patient is resting comfortably. Patient had no complaints. Patient states he is comfortable waiting for the bed and had no request. Review of Systems Review of Systems All systems reviewed & are unremarkable except as noted in HPI and below Exam Narrative APPEARANCE: Ill-appearing, alert appropriate HEAD: normocephalic, atraumatic. EYES: PERRLA/EOMI, conjunctivae clear. NOSE: Normal no drainage EARS:TMS clear with good light reflex. THROAT: Pharynx clear, no exudate. NECK: Supple. No adenopathy, no masses. RESPIRATORY: Airway patent, respirations nonlabored. Clear to auscultation bilaterally, no rales, rhonchi, wheezing. CARDIOVASCULAR: Regular rate and rhythm without murmurs rubs or gallops. ABDOMINAL: Soft, nontender, nondistended, normal bowel sounds MUSCULOSKELETAL: Moves all extremities. Strength/ROM intact, No edema, No calf tenderness. NEURO: Alert. Cranial nerves II through XII intact. Good gait. Good coordination SKIN: Warm, dry. Normal Color Objective Data Vital Signs Vital Signs: Vital Signs - 24 hr 12/16/24 17:00 12/16/24 17:01 12/16/24 17:40 Temperature Pulse Rate 94 95 99 Respiratory Rate 16 16 14 Blood Pressure 134/85 158/90 H Pulse Oximetry 97 Oxygen Delivery Oxygen Flow Rate 12/16/24 19:33 12/16/24 19:45 12/16/24 20:12 Temperature Pulse Rate 96 97 96 Respiratory Rate 15 14 16 Blood Pressure Pulse Oximetry 100 100 Oxygen Delivery Oxygen Flow Rate 12/16/24 20:15 12/16/24 20:50 12/16/24 21:31 Temperature Pulse Rate 95 101 H 98 Respiratory Rate 16 19 17 Blood Pressure Pulse Oximetry 99 Oxygen Delivery Oxygen Flow Rate 12/16/24 21:45 12/16/24 23:26 12/16/24 23:35 Temperature Pulse Rate 95 93 96 Respiratory Rate 18 18 16 Blood Pressure Pulse Oximetry 96 99 Oxygen Delivery Oxygen Flow Rate 12/16/24 23:45 12/17/24 00:04 12/17/24 00:30 Temperature Pulse Rate 96 98 98 Respiratory Rate 14 20 12 Blood Pressure Pulse Oximetry 100 97 Oxygen Delivery Oxygen Flow Rate 12/17/24 00:31 12/17/24 00:45 12/17/24 00:46 Temperature Pulse Rate 100 98 100 Respiratory Rate 12 13 11 L Blood Pressure 137/78 107/70 Pulse Oximetry 98 Oxygen Delivery Oxygen Flow Rate 12/17/24 01:29 12/17/24 01:30 12/17/24 01:31 Temperature Pulse Rate 100 99 100 Respiratory Rate 15 15 15 Blood Pressure 126/74 Pulse Oximetry Oxygen Delivery Oxygen Flow Rate 12/17/24 02:04 12/17/24 02:15 12/17/24 02:30 Temperature Pulse Rate 103 H 98 94 Respiratory Rate 17 13 14 Blood Pressure Pulse Oximetry Oxygen Delivery Oxygen Flow Rate 12/17/24 04:30 12/17/24 04:45 12/17/24 05:00 Temperature Pulse Rate 95 92 99 Respiratory Rate 12 16 13 Blood Pressure Pulse Oximetry Oxygen Delivery Oxygen Flow Rate 12/17/24 05:15 12/17/24 05:30 12/17/24 05:45 Temperature Pulse Rate 98 101 H 100 Respiratory Rate 12 14 14 Blood Pressure Pulse Oximetry Oxygen Delivery Oxygen Flow Rate 12/17/24 05:51 12/17/24 06:00 12/17/24 06:01 Temperature Pulse Rate 98 97 97 Respiratory Rate 16 14 18 Blood Pressure 135/80 136/80 Pulse Oximetry Oxygen Delivery Oxygen Flow Rate 12/17/24 06:15 12/17/24 06:30 12/17/24 06:45 Temperature Pulse Rate 96 98 100 Respiratory Rate 17 16 18 Blood Pressure 152/87 H 150/90 H 150/81 H Pulse Oximetry 100 Oxygen Delivery Oxygen Flow Rate 12/17/24 07:00 12/17/24 07:15 12/17/24 07:30 Temperature Pulse Rate 100 93 94 Respiratory Rate 17 14 17 Blood Pressure 124/71 138/67 140/65 Pulse Oximetry 98 100 100 Oxygen Delivery Oxygen Flow Rate 12/17/24 08:00 12/17/24 08:30 12/17/24 10:08 Temperature Pulse Rate 91 94 99 Respiratory Rate 14 14 14 Blood Pressure 128/73 122/70 114/82 Pulse Oximetry 100 98 97 Oxygen Delivery Oxygen Flow Rate 12/17/24 11:00 12/17/24 11:19 12/17/24 12:00 Temperature Pulse Rate 93 95 Respiratory Rate 12 15 Blood Pressure 156/69 H 141/90 H Pulse Oximetry 100 100 Oxygen Delivery Nasal Cannula Oxygen Flow Rate 3 12/17/24 12:58 12/17/24 13:00 12/17/24 13:57 Temperature 97.6 F Pulse Rate 99 98 87 Respiratory Rate 14 14 15 Blood Pressure 141/90 H 147/85 H 147/85 H Pulse Oximetry 99 Oxygen Delivery Oxygen Flow Rate 12/17/24 14:00 12/17/24 14:12 12/17/24 15:00 Temperature Pulse Rate 90 99 89 Respiratory Rate 13 16 14 Blood Pressure 134/72 129/68 138/65 Pulse Oximetry 98 Oxygen Delivery Oxygen Flow Rate 12/17/24 16:00 Temperature Pulse Rate 94 Respiratory Rate 20 Blood Pressure 153/74 H Pulse Oximetry 90 Oxygen Delivery Oxygen Flow Rate Intake/Output Intake/Output: Intake & Output 12/14/24 12/15/24 12/16/24 12/17/24 23:59 23:59 23:59 23:59 Intake Total 2100 600 150 Output Total 150 300 625 Balance 1950 300 -475 Meds/Results Medications: Active Medications Generic Name Dose Route Start Last Admin Trade Name Freq PRN Reason Stop Dose Admin Hydromorphone HCl 0.5 mg 12/16/24 14:47 12/17/24 16:07 Hydromorphone Hcl Inj (*Crx) 1 Mg/Ml Syr IV PUSH 0.5 mg Q3H PRN Administration Pain Rated 7-10 Cefepime HCl 2 gm in 50 mls @ 100 mls/hr 12/16/24 06:00 12/17/24 14:31 Maxipime 2 Gm/Ns 50 Ml IVPB Infused Q8HR ROSA MARIA Infusion Mycophenolate Mofetil 1,000 mg 12/16/24 09:00 12/17/24 08:50 Mycophenolate Mofetil 250 Mg Capsule PO 1,000 mg Q12HR ROSA MARIA Administration Tacrolimus 0.5 mg 12/16/24 09:00 12/17/24 08:53 Tacrolimus 0.5 Mg Capsule PO 0.5 mg DAILY ROSA MARIA Administration Radiology Results: ITS Impressions Abdomen/Pelvis CT 12/15/24 19:55 IMPRESSION: 1. Pulmonary nodules with worsening on the left from 11/23/2024, consistent with pneumonia. 2. Emphysema. 3. Wall thickening of the esophagus, likely esophagitis. Chest X-Ray 12/15/24 21:11 IMPRESSION: 1. Stable chronic pneumonia. 2. Emphysema. Labs Labs: Laboratory Results - last 24 hr 12/17/24 07:38 WBC 17.8 H RBC 3.03 L Hgb 10.5 L Hct 32.3 L MCV 106.6 H MCH 34.7 H MCHC 32.5 RDW 14.4 Plt Count 320 MPV 10.8 H Immature Gran % (Auto) 0.4 Neut % (Auto) 73.5 H Lymph % (Auto) 17.7 L [place] % (Auto) 6.6 Eos % (Auto) 1.4 Baso % (Auto) 0.4 Lymph # (Auto) 3.16 [place] # (Auto) 1.2 H Eos # (Auto) 0.3 Baso # (Auto) 0.1 Abs Immat Gran (auto) 0.08 H Absolute Neuts (auto) 13.1 H Absolute Nucleated RBC 0.030 H Nucleated RBC % 0.2 Platelet Estimate Adequate Macrocytosis 1+ Target Cells 1+ [place] Cells 1+ Schistocytes Not Reportable Sodium 141 Potassium 3.6 Chloride 107 Carbon Dioxide 28 Anion Gap 6 BUN 18 Creatinine 0.53 L Estim Creat Clear Calc 107 Estimated GFR > 60 Glucose 115 H Calcium 8.5 Total Bilirubin 0.8 AST 1463 H ALT 2705 H Alkaline Phosphatase 191 H Total Protein 7.0 Albumin 3.0 L
[2024-12-18] VITALS (53 sets, daily range): BP systolic 117–148; BP diastolic 69–93; PULSE 72–108; RESP 12–26; TEMP 36.8–36.9; O2SAT 97–100
[2024-12-18] MEDS: CEFEPIME 2 GM/NS 50 ML 2 GM/50 ML BAG IVPB ×2 (06:12→15:20)
[2024-12-18] MEDS: mycophenolate mofetiL 250 MG CAPSULE 1000 MG PO (08:43)
[2024-12-18] MEDS: TACROLIMUS 0.5 MG CAPSULE PO (08:43)
--- NOTE | 2024-12-18 17:00 | PC.NURSE ---
clear liquid diet tray ordered
== END 2024-12-18 17:41 | disposition short-term general hospital (02) ==
PROVIDERS: Emergency Medicine; Emergency Provider Emergency Medicine; PCP Internal Medicine
DX: A41.9 Sepsis, unspecified organism (principal); J15.7 Pneumonia due to Mycoplasma pneumoniae; Z20.822 Contact with and (suspected) exposure to COVID-19; C92.00 Acute myeloblastic leukemia, not having achieved remission; J96.11 Chronic respiratory failure with hypoxia; Z99.81 Dependence on supplemental oxygen; J43.9 Emphysema, unspecified; I25.10 Atherosclerotic heart disease of native coronary artery without angina pectoris; I25.2 Old myocardial infarction; E11.42 Type 2 diabetes mellitus with diabetic polyneuropathy; E78.5 Hyperlipidemia, unspecified; D89.811 Chronic graft-versus-host disease; M85.80 Other specified disorders of bone density and structure, unspecified site; N48.6 Induration penis plastica; Z95.5 Presence of coronary angioplasty implant and graft; Z94.84 Stem cells transplant status; Z94.81 Bone marrow transplant status; Z86.718 Personal history of other venous thrombosis and embolism; Z86.711 Personal history of pulmonary embolism; Z87.891 Personal history of nicotine dependence; Z96.1 Presence of intraocular lens; Z98.49 Cataract extraction status, unspecified eye; Z79.01 Long term (current) use of 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; Z79.02 Long term (current) use of antithrombotics/antiplatelets; Z79.899 Other long term (current) drug therapy; R91.8 Other nonspecific abnormal finding of lung field; R93.3 Abnormal findings on diagnostic imaging of other parts of digestive tract
CPT/HCPCS: 36415; 36600; 71045; 74177; 80053; 80179; 80307; 81001; 82077; 82550; 82565; 82805; 82948; 83605; 83690; 83735; 84100; 84439; 84443; 84484; 85018; 85025; 85610; 85730; 87040; 87637; 87641; 96361; 96365; 96366; 96367; 96368; 96375; 99285; A9270; J0692; J1171; J2270; J2405; J3370; J3475; J7030; J7517; Q9967

== ENCOUNTER 2025-02-03 17:28 | Inpatient (IN) | payer MEDICARE, SELFPAY ==
[2025-02-03] VITALS (16 sets, daily range): BP systolic 80–149; BP diastolic 56–95; PULSE 94–132; RESP 14–30; TEMP 36.4–37.9; O2SAT 88–100
--- NOTE | ~2025-02-03 | XR_ITS ---
XR chest 1V portable 02/06/2025 06:17 Indication: Pneumonia Procedure: AP portable chest Comparison: Comparison to multiple prior studies sequentially, with oldest reviewed study dated 04/2024. Findings: Heart size normal. The lungs are hyperinflated which is consistent with, but not diagnostic of chronic obstructive pulmonary disease. There is chronic right apical pleural thickening/scarring. There are coarse interstitial infiltrates bilaterally unchanged. There are emphysematous changes. Impression: 1: No acute cardiopulmonary disease. Stable chronic changes. Reviewed, dictated and finalized at location B. Impression: 1: No acute cardiopulmonary disease. Stable chronic changes.
--- NOTE | ~2025-02-03 | XR_ITS ---
CHEST RADIOGRAPH CLINICAL HISTORY: SOB . COMPARISON: 12/15/2024 TECHNIQUE: Single portable view of the chest. FINDINGS The cardiomediastinal silhouette is elongated. Interstitial thickening detected bilaterally. Biapical scarring, right greater than left. Traction bronchiectasis is present. The lungs are otherwise clear. IMPRESSION: No focal infiltrate or effusion. Reviewed, dictated and finalized at location A.
--- NOTE | ~2025-02-03 | XR_ITS ---
EXAMINATION: XR chest 1V portable DATE: 02/08/2025 03:15 INDICATION: Coarse crackles in the lungs. TECHNIQUE: A single frontal view of the chest was obtained. COMPARISON: Chest single view 02/06/2025, 12/15/2024, chest CT 02/03/2025 FINDINGS: The lungs are hyperexpanded with lucencies and architectural distortion, consistent with em physema. There are airspace opacities in the upper lobes, right worse than left. There is a nodule in lateral right midlung zone. No pleural effusion or pneumothorax. The heart size is normal. IMPRESSION: 1. Chronic airspace opacities in the upper lobes and chronic nodule in lateral right midlung zone, co nsistent with chronic pneumonia. 2. Emphysema. Reviewed, dictated and finalized at location A. IMPRESSION: 1. Chronic airspace opacities in the upper lobes and chronic nodule in lateral right midlung zone, consistent with chronic pneumonia. 2. Emphysema.
--- NOTE | ~2025-02-03 | CT_ITS ---
EXAMINATION: CTA chest PE protocol DATE: 02/03/2025 23:19 CDT INDICATION: Shortness of breath TECHNIQUE: Computed tomographic angiography (CTA) of the chest was performed with 100 mL Omnipaque-35 0 intravenous contrast. The dose-length product was 205.42 mGy-cm. Maximum intensity projection 3D-re constructions of the aorta and other arteries were constructed by the technologist on a separate work station. COMPARISON: 11/23/2024 and 07/21/2024. FINDINGS/OBSERVATIONS: PULMONARY ARTERIES: No filling defect is identified within the main or proximal pulmonary artery. The main pulmonary artery is not enlarged. THORACIC AORTA: No aneurysmal dilatation or dissection is present. The great vessels are intact LUNGS: Stable right apical consolidation with cavitary change. Varicose bronchiectasis within the right apex. Pleural-based scarring within the left upper lobe, also with cavitary change, unchanged from 11/23/2024 and 07/21/2024. Scattered nodularity is redemonstrated, unchanged from examination performed 11/23/2024, not likely the cause of patient's presentation. Panlobular emphysema is also noted with bibasilar bulla. MEDIASTINUM: No morphologically suspicious or pathologically enlarged lymph nodes are identified with in the mediastinum or bilateral axilla. BONES OF THE CHEST: No acute fracture. No significant degenerative disease within the thoracic spine. No lytic or blastic lesions. HEART: The heart is of normal size, without pericardial effusion. IMPRESSION: No pulmonary embolus. No thoracic aortic dissection. Redemonstration of chronic panlobular emphysematous change with right apical consolidation with cavit luly change and pleural-based scarring within the left upper lobe with cavitary change. Reviewed, dictated and finalized at location A. IMPRESSION: No pulmonary embolus. No thoracic aortic dissection. Redemonstration of chronic panlobular emphysematous change with right apical co nsolidation with cavitary change and pleural-based scarring within the left upp er lobe with cavitary change.
--- NOTE | 2025-02-03 17:34 | ECG_ITS ---
Test Date: 2025-02-03 17:59:13 Measurements Intervals [place] Rate: 131 P: 81 [place]: 135 QRS: 105 QRSD: 93 T: 68 QT: 395 QTc: 583 Interpretive Statements SINUS TACHYCARDIA PATTERN CONSISTENT WITH PULMONARY DISEASE POSSIBLE RIGHT VENTRICULAR HYPERTROPHY [SOME/ALL OF: PROMINENT R IN V1, LATE TRANSITION, RAD, ASYA, SSS] nonspecific ST T wave abnormalities Electronically Signed On 02-04-2025 09:15:11 CDT by Jorge Rivera M.D.
--- NOTE | 2025-02-03 17:58 | ED.SOB ---
HPI - SOB/Dyspnea General Chief Complaint: Shortness of Breath/Dyspnea Stated Complaint: SOB Time Seen by Provider: 02/03/25 17:48 Source: patient Mode of arrival: EMS Limitations: no limitations History of Present Illness HPI Narrative: This is a 59-year-old male that presents to the emergency department for shortness of breath. Worsening over the last couple of days. Reports associated productive cough. Reports history of COPD. He was given a nebulizer treatment, magnesium, Decadron via EMS in route. He normally wears 3 L nasal cannula. Oxygen saturation was in the 80s on this. He is currently on non-rebreather. Denies fevers. Related Data Home Medications ?Medication ?Instructions ?Recorded ?Confirmed ?Last Taken ?Type rivaroxaban 20 mg tablet (Xarelto) 20 mg PO QAM 02/06/23 11/21/24 11/20/24 17:03 History 20 mg albuterol sulfate 90 mcg/actuation 1 puff inhalation Q4-6H PRN 10/23/24 11/21/24 11/19/24 16:00 History aerosol inhaler Shortness Of Breath Or Wheezing 1 puff ondansetron 4 mg disintegrating 4 mg PO Q8H PRN Nausea And Vomiting 10/23/24 11/21/24 11/20/24 17:04 History tablet 4 mg pantoprazole 40 mg tablet,delayed 40 mg PO Q12H 10/23/24 11/21/24 11/20/24 17:00 History release 40 mg clofazimine 50 mg capsule 100 mg PO DAILY 11/25/24 11/25/24 Unknown History ethambutol 400 mg tablet 1,200 mg PO DAILY 11/25/24 11/25/24 Unknown History isavuconazonium sulfate 186 mg 372 mg PO DAILY 11/25/24 11/25/24 Unknown History capsule (Cresemba) Allergies Allergy/AdvReac Type Severity Reaction Status Date / Time adhesive tape AdvReac Unknown PAPER Verified 02/03/25 17:34 TAPE,REDNESS AND IRRITATION Review of Systems Review of Systems: CONSTITUTIONAL: Denies fever CARDIOVASCULAR: Denies chest pain, or edema. RESPIRATORY: Reports cough and dyspnea. All systems reviewed & are unremarkable except as noted in HPI and below PMFSH Past Medical History Medical History Pancreatitis Non-tuberculous mycobacterial pneumonia MSSA bacteremia Osteopenia Pseudomonas pneumonia Mycobacterium avium complex Chronic kcqly-emswcc-fdwx disease Chronic respiratory failure with hypoxia, on home oxygen therapy Coronary artery disease Pill esophagitis ST elevation (STEMI) myocardial infarction (12/30/22) Chronic anticoagulation Immunocompromised patient patient on anti rejection medications Positive nasal culture for methicillin resistant Staphylococcus aureus Deep venous thrombosis Insulin dependent type 2 diabetes mellitus Chronic obstructive pulmonary disease Sciatica Eczema Anxiety Depression Peyronie's disease Emphysema/COPD 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 Code status: Full code. Years smoked: 44 Smoking status: Current some day smoker Tobacco type: cigarettes Smoking end date: 08/07/22 Additional smoking assessment comments: on nicotine patches, states he is currently on patches Alcohol intake: former Substance use: never Substance use type: does not use Do You Feel Safe in your Home?: Yes Lack of Transportation: No Lack of Food: Never True Current Housing: I Have Housing Concerned About Future Housing: No Difficulty Paying Gas/Electric Bills: No Difficulty Paying for Meds: No Currently Unemployed: No Education: Trade/Vocational Certificate Difficulty w/ Childcare or Family Care: No Living arrangements: with friend(s) Additional living arrangements comments: He lives with his roommate in [place]. Occupation/Education: unemployed Spiritual care concerns: No Agree to blood products: Yes Exam Narrative: GENERAL: Chronically ill-appearing, thin, in respiratory distress. HEAD: Normocephalic, atraumatic. EYES: EOMI. ENT: Nares clear, no rhinorrhea or epistaxis. Mucous membranes moist. Oropharynx without tonsillar hypertrophy exudate or other lesions. NECK: Supple. No adenopathy or masses. CHEST: Accessory muscle use. Tachypneic. Lung sounds diffusely diminished. No rales or rhonchi HEART: Regular rate and rhythm. No murmur heard. Normal peripheral pulses. EXTREMITIES: Normal range of motion. No edema. SKIN: Warm, dry, no rash. NEURO: No focal deficits. Alert and oriented x3. PSYCH: Normal mood and affect Course Course Emergency Course: Patient was updated on his workup and need for admission Consultations Consultation #1: Spoke with hospitalist about patient and workup who accepts admission Date: 02/03/25 Vital Signs Vital signs: Vital Signs Temperature 97.6 F 02/03/25 17:23 Pulse Rate 132 H 02/03/25 17:23 Respiratory Rate 29 H 02/03/25 17:23 Blood Pressure 149/95 H 02/03/25 17:23 Pulse Oximetry 96 02/03/25 17:23 Oxygen Delivery Non-Rebreather Mask 02/03/25 17:23 Oxygen Flow Rate 15 02/03/25 17:23 Temperature 100.3 F H 02/03/25 18:41 Pulse Rate 94 02/03/25 22:34 Respiratory Rate 19 02/03/25 22:34 Blood Pressure 82/58 L 02/03/25 22:34 Pulse Oximetry 99 02/03/25 22:34 Oxygen Delivery High Flow Nasal Cannula 02/03/25 22:26 Oxygen Flow Rate 7 02/03/25 22:26 Fraction of Inspired Oxygen 54 02/03/25 21:10 MDM - SOB/Dyspnea MDM Narrative Medical decision making narrative: Patient presents to the emergency department for increasing dyspnea. Tachycardic, tachypneic, in respiratory distress upon arrival. Placed on BiPAP for work of breathing. He was given Decadron, magnesium via EMS. Given hour long nebulizer treatment upon arrival. He was eventually able to be weaned down to high-flow nasal cannula. He did develop a low-grade fever in the ER. Given a dose of ibuprofen. Cbc without leukocytosis. Metabolic panel with mild hyperkalemia. Chest x-ray without acute findings. BNP 2890. Influenza, RSV and COVID screens are negative. Patient will be admitted for further management. Spoke with hospitalist about patient and workup who accepts admission Differential Diagnosis Differential diagnosis: Likely acute exacerbation of chronic obstructive airways disease, congestive heart failure, community acquired pneumonia and pulmonary embolism Lab Data Attestation: I reviewed the patient's lab results. 02/03/25 18:04 02/03/25 18:04 Labs: Lab Results 02/03/25 02/03/25 02/03/25 Range/Units 18:04 18:41 19:00 WBC 9.6 (4.5-10.0) K/mm3 RBC 3.96 L (4.6-6.20) M/mm3 Hgb 13.5 L D (14.0-18.0) g/dL Hct 40.1 L (42.0-52.0) % MCV 101.3 H (80-100) fl MCH 34.1 H (26-34) pg MCHC 33.7 (32-36) g/dl RDW 18.0 H (11.5-14.5) % Plt Count 328 (150-375) k/mm3 MPV 10.7 H (7.4-10.4) fl Immature Gran % (Auto) 0.3 (0-0.5) % Neut % (Auto) 53.0 (45.5-73.1) % Lymph % (Auto) 34.3 (18.3-44.2) % [place] % (Auto) 8.9 H (2.6-8.5) % Eos % (Auto) 2.7 (0-4.4) % Baso % (Auto) 0.8 (0.2-1.2) % Lymph # (Auto) 3.28 H (0.9-3.2) K/mm3 [place] # (Auto) 0.9 H (0.1-0.6) K/mm3 Eos # (Auto) 0.3 (0-0.3) K/mm3 Baso # (Auto) 0.1 (0.0-0.1) K/mm3 Abs Immat Gran (auto) 0.03 (0.00-0.031) K/mm3 Absolute Neuts (auto) 5.1 (1.3-6.7) K/mm3 Absolute Nucleated RBC 0.000 (0.0-0.012) K/mm3 Nucleated RBC % 0.0 (0.0-0.2) % PT 14.3 (11.1-14.7) Seconds INR 1.1 APTT 41.2 H (22.3-36.8) Seconds Methemoglobin 0.2 (0-1.5) %THb Expiratory Pressure 6 CMH2O Inspiratory Pressure 12 CMH2O Sodium 132 L (137-145) mmol/L Potassium 5.3 H (3.4-5.0) mmol/L Chloride 95 L (98-107) mmol/L Carbon Dioxide 31 H (22-30) mmol/L Anion Gap 6 (4-12) mmol/L BUN 10 D (9-20) mg/dL Creatinine 0.75 (0.7-1.3) mg/dL Estim Creat Clear Calc 87 ml/min Estimated GFR > 60 (59 - ) Glucose 103 (65-110) mg/dL POC Capillary Glucose (65-105) mg/dl Calcium 9.2 (8.4-10.2) mg/dL Total Bilirubin 0.9 (0.2-1.3) mg/dL AST 39 (17-59) U/L ALT 20 (6-50) U/L Alkaline Phosphatase 186 H (38-126) U/L NT-Pro-B Natriuret Pep 2890 H (19.9-100) pg/mL Total Protein 8.0 (6.3-8.2) g/dL Albumin 3.6 (3.5-5.1) g/dL Influenza A (RT-PCR) (Negative) Influenza B (RT-PCR) (Negative) RSV (RT-PCR) (Negative) SARS-CoV-2 RNA (RT-PCR) (Negative) 02/03/25 02/03/25 Range/Units 19:47 22:40 WBC (4.5-10.0) K/mm3 RBC (4.6-6.20) M/mm3 Hgb (14.0-18.0) g/dL Hct (42.0-52.0) % MCV (80-100) fl MCH (26-34) pg MCHC (32-36) g/dl RDW (11.5-14.5) % Plt Count (150-375) k/mm3 MPV (7.4-10.4) fl Immature Gran % (Auto) (0-0.5) % Neut % (Auto) (45.5-73.1) % Lymph % (Auto) (18.3-44.2) % Richmond % (Auto) (2.6-8.5) % Eos % (Auto) (0-4.4) % Baso % (Auto) (0.2-1.2) % Lymph # (Auto) (0.9-3.2) K/mm3 [place] # (Auto) (0.1-0.6) K/mm3 Eos # (Auto) (0-0.3) K/mm3 Baso # (Auto) (0.0-0.1) K/mm3 Abs Immat Gran (auto) (0.00-0.031) K/mm3 Absolute Neuts (auto) (1.3-6.7) K/mm3 Absolute Nucleated RBC (0.0-0.012) K/mm3 Nucleated RBC % (0.0-0.2) % PT (11.1-14.7) Seconds INR APTT (22.3-36.8) Seconds Methemoglobin (0-1.5) %THb Expiratory Pressure CMH2O Inspiratory Pressure CMH2O Sodium (137-145) mmol/L Potassium (3.4-5.0) mmol/L Chloride (98-107) mmol/L Carbon Dioxide (22-30) mmol/L Anion Gap (4-12) mmol/L BUN (9-20) mg/dL Creatinine (0.7-1.3) mg/dL Estim Creat Clear Calc ml/min Estimated GFR (59 - ) Glucose (65-110) mg/dL POC Capillary Glucose 150 H (65-105) mg/dl Calcium (8.4-10.2) mg/dL Total Bilirubin (0.2-1.3) mg/dL AST (17-59) U/L ALT (6-50) U/L Alkaline Phosphatase (38-126) U/L NT-Pro-B Natriuret Pep (19.9-100) pg/mL Total Protein (6.3-8.2) g/dL Albumin (3.5-5.1) g/dL Influenza A (RT-PCR) Negative (Negative) Influenza B (RT-PCR) Negative (Negative) RSV (RT-PCR) Negative (Negative) SARS-CoV-2 RNA (RT-PCR) Negative (Negative) ABG Data ABG results: 02/03/25 18:41 Puncture Site Left radial ABG pH 7.370 ABG pCO2 39.6 ABG pO2 435.4 H ABG PO2/FiO2 Ratio 4.35 ABG HCO3 22.4 ABG O2 Saturation 99.8 ABG O2 Content 19.0 ABG Base Excess -2.6 A-a Gradient 238.0 Oxyhemoglobin 99.1 Carboxyhemoglobin 0.4 Reduced Hemoglobin 0.3 Total Hemoglobin 12.8 O2 Delivery Device Non-invasive vent O2 Liters/Min 0.0 Vent Rate 4 FiO2 100 Imaging Data Radiologist's impression: ITS Impressions Chest X-Ray 02/03/25 18:28 IMPRESSION: No focal infiltrate or effusion. [place] [address] [place], [place] [id number] CT Scan Report Signed Patient: Brady Jones : 1965 MR#: [id number] Age: 59 Acct:[id number] Loc: [facility] ADM Date: 02/03/25Attending Dr: Ordering Physician: Delmy Smith PA-C Date of Service: 02/03/25 Procedure(s): CTA chest PE protocol Accession Number(s): [id number] cc: Delmy Smith PA-C; Kirt Lindsay DO~ EXAMINATION: CTA chest PE protocol DATE: 02/03/2025 23:19 CDT INDICATION: Shortness of breath TECHNIQUE: Computed tomographic angiography (CTA) of the chest was performed with 100 mL Omnipaque-350 intravenous contrast. The dose-length product was 205.42 mGy-cm. Maximum intensity projection 3D-reconstructions of the aorta and other arteries were constructed by the technologist on a separate workstation. COMPARISON: 11/23/2024 and 07/21/2024. FINDINGS/OBSERVATIONS: PULMONARY ARTERIES: No filling defect is identified within the main or proximal pulmonary artery. The main pulmonary artery is not enlarged. THORACIC AORTA: No aneurysmal dilatation or dissection is present. The great vessels are intact LUNGS: Stable right apical consolidation with cavitary change. Varicose bronchiectasis within the right apex. Pleural-based scarring within the left upper lobe, also with cavitary change, unchanged from 11/23/2024 and 07/21/2024. Scattered nodularity is redemonstrated, unchanged from examination performed 11/23/2024, not likely the cause of patient's presentation. Panlobular emphysema is also noted with bibasilar bulla. MEDIASTINUM: No morphologically suspicious or pathologically enlarged lymph nodes are identified within the mediastinum or bilateral axilla. BONES OF THE CHEST: No acute fracture. No significant degenerative disease within the thoracic spine. No lytic or blastic lesions. HEART: The heart is of normal size, without pericardial effusion. IMPRESSION: No pulmonary embolus. No thoracic aortic dissection. Redemonstration of chronic panlobular emphysematous change with right apical consolidation with cavitary change and pleural-based scarring within the left upper lobe with cavitary change. ECG Data EKG #1: ECG completion date: 02/03/25 EKG Interpretation: tachycardia, sinus rhythm and no ST changes Critical Care Time Critical Care Time Critical Care Time: Yes Total Critical Care Time: 35 Discharge Plan Discharge Clinical Impression: Acute on chronic respiratory failure Qualifiers: Respiratory failure complication: hypoxia Qualified Code(s): J96.21 - Acute and chronic respiratory failure with hypoxia Patient Disposition: Still a Patient Condition: Improved Patient Language: [place] Islander Prescriptions: No Action Xarelto 20 mg tablet 20 mg PO QAM Rx Instructions: must administer with evening meal ethambutol 400 mg tablet 1,200 mg PO DAILY clofazimine 50 mg capsule 100 mg PO DAILY Cresemba 186 mg capsule 372 mg PO DAILY pantoprazole 40 mg tablet,delayed release (DR/EC) 40 mg PO Q12H ondansetron 4 mg tablet,disintegrating 4 mg PO Q8H PRN (Reason: Nausea And Vomiting) albuterol sulfate 90 mcg/actuation HFA aerosol inhaler 1 puff INHALATION Q4-6H PRN (Reason: Shortness Of Breath Or Wheezing) acyclovir 400 mg tablet 400 mg PO TID Qty: 90 0RF clopidogrel 75 mg tablet 75 mg PO DAILY Qty: 90 0RF montelukast [Singulair] 10 mg tablet 10 mg PO HS Qty: 30 0RF mycophenolate mofetil 500 mg tablet 1,000 mg PO Q12H Qty: 10 0RF Rx Instructions: Please call your Oncology to send prescription for this medication and adjust the dose tacrolimus [Prograf] 0.5 mg capsule 0.5 mg PO EVERY OTHER DAY Qty: 30 0RF albuterol sulfate 2.5 mg /3 mL (0.083 %) solution for nebulization See Rx Instructions .ROUTE .COMPLEX Qty: 180 0RF Dose Instruction: INHALE 1 VIAL VIA NEBULIZER EVERY 6 HOURS NEEDED FOR SHORTNESS OF BREATH Rx Instructions: INHALE 1 VIAL VIA NEBULIZER EVERY 6 HOURS NEEDED FOR SHORTNESS OF BREATH Follow-up/Referrals: Kirt Lindsay, [Primary Care Provider] -
--- OUTSIDE RECORDS SUMMARY | 2025-02-03 18:06 | XMS_ITS | Encounter Summary ---
Author Organization [facility] Address [address] [place] [address] Phone Care Team Providers Care Formula Technician Name Role Phone Josué Del Valle MD PhD Unavailable [phone] Kirt Lindsay DO Primary Care Provider [phone] Cal Carranza DO Unavailable [phone] Halie Khan MD Unavailable [phone] Wilfred Kinsey MD Unavailable Encounter Details Date Type Department Care Team (Late st Contact Info) Description 01/15/2025 Results Follow-Up [facility] Medical Office Building [address] [place] [address] Edith Orlando LPN Social History Tobacco Use Types Packs/Day Years Used Date Smoking Tobacco: Some Days Cigarettes 0.5 40.6 Started: 1985 Smokeless Tobacco: Never Comments:pt states tried to quit; smoking 5 cigs/wk OASIS D0700: Social Isolation Answer Da te Recorded Frequency of experiencing loneliness or isolatio n Rarely 01/05/2025 OASIS A1250: Transportation Answer Date Recorded Lack of Transportation (Medical) No 01/05/2025 Lack of Transportation (Non-Medical) No 01/05/2025 Patient Unable or Declines to Respond No 01/05/2025 OASIS B1300: Health Literacy Answer [place] Recorded Frequency of needing help to read materials from doctor or pharmacy Sometimes 01/05/2025 [facility] Utilities Answer Date Recorded In the past 12 months has th e electric, gas, oil, or water company threatened to shut off services in your home? No 12/19/2024 Social Connection and Isolat ion Panel [NHANES] Answer Date Recorded In a typical week, how many times do you talk on the phone with family, friends, or neighbors? More than three times a week 12/19/2024 How often do you get togethe r with friends or relatives? More than three times a week 12/19/2024 How often do you attend chur ch or episcopalian services? Never 12/19/2024 Do you belong to any clubs o r organizations such as lutheran groups, unions, fraternal or athletic groups, or school groups? No 12/19/2024 How often do you attend meet ings of the clubs or organizations you belong to? Never 12/19/2024 Are you , , di vorced, , never , or living with a partner? 12/19/2024 AUDIT-C Answer Date Recorded Q1: How often do you have a drink containing alcohol? Never 12/31/2024 Q2: How many drinks containi ng alcohol do you have on a typical day when you are drinking? Patient does not drink Q3: How often do you have si x or more drinks on one occasion? Never 12/31/2024 Overall Financial Resource Strain (CARDIA) Answe r Date Recorded How hard is it for you to pa y for the very basics like food, housing, medical care, and heating? Not very hard 12/19/2024 PHQ-2 Answer Date Recorded PHQ-2 Total Score 0 12/19/2024 Hunger Vital Sign Answer Date Recorded Within the past 12 months, y ou worried that your food would run out before you got the money to buy more. Never true 12/19/19 25 Within the past 12 months, t he food you bought just didn't last and you didn't have money to get more. Never true 12/19/2024 PRAPARE - Transportation Answer Date Re corded In the past 12 months, has l ack of transportation kept you from medical appointments or from getting medications? No 11/2024 In the past 12 months, has l ack of transportation kept you from meetings, work, or from getting things needed for daily living? No 12/19/2024 Housing Stability Vital Sign Answer [place] e [...] the mortgage or rent on time? No 12/19/2024 In the past 12 months, how m any times have you moved where you were living? 0 12/19/2024 At any time in the past 12 m [facility], were you homeless or living in a longterm (including now)? No 12/19/2024 Personal Safety Answer Date Recorded Have you ever been in or are you currently in a harmful physical or emotional relationship or is someone making you feel afraid or unsafe? 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 Gender Identity Not on file Sexual Orientation Not on file documented as of this encounter Plan of Treatment Not on file documented as of this encounter Visit Diagnoses Not on filedocumented in this encounter Additional Health Concerns Infection Onset Date Last Indicated Resolved Time VRE Comment:Contact Precautions (gown and gloves) - Vladimir BURRELL, RN 01/06/25 12/23/2024 12/23/2024 documented as of this encounter Care Teams Formula Technician Relationship Specialty Start Date End Date Kirt Lindsay DO PCP - General Internal Medicine 02/02/21 Josué Del Valle MD PhD Medical Oncologist/Machine Repairer Medical Oncology 08/26/19 Dillon Cal DoradoDO [address] [id number] Flight Operations Manager Internal Medicine 06/12/23 Halie Khan MD [address] [facility] [address] [place] [address] Press Service Reader Critical Care Med 06/12/23 Wilfred Kinsey MD [address] [address] Consulting Physician Gastroenterology 03/02/24 documented as of this encounter
--- OUTSIDE RECORDS SUMMARY | 2025-02-03 18:06 | XMS_ITS | Encounter Summary ---
Author Organization [facility] Address [address] [place] [address] Phone Care Team Providers Care Rag Washer Name Role Phone Kirt Lindsay DO Primary Care Provider [phone] Josué Del Valle MD PhD Unavailable [phone] Halie Khan MD Primary Care Provider [phone] Kirt Lindsay DO Primary Care Provider [phone] Tay Charlton MD Unavailable [phone] Halie Khan MD Unavailable [phone] StarksAnt goldman MD Unavailable [phone] Dillon Calreed Dorado DO Unavailable [phone] Halie Khan MD Unavailable [phone] Wilfred Kinsey MD Unavailable Encounter Details Date Type Department Care Team (Latest Contact Info) Description 11/27/2017 Orders Only [facility] CONVERSION Scanning, Provider Social History Tobacco Use Types Packs/Day Years Used Date Smoking Tobacco: Never Assessed Sex and Gender Information Value Date Recorded Sex Assigned at Not on file Legal Sex Male 10:48 AM MANIFEST/ORDER ORGANIZER PRINT ORDERS Gender Identity Not on file Sexual Orientation Not on file documented as of this encounter Plan of Treatment Not on file documented as of this encounter Procedures Procedure Name Priority Date/Time Associated Diagnosis Comments VASCULAR LABORATORY REPORT 11/27/2017 4:04 PM MANIFEST/ORDER ORGANIZER PRINT ORDERS VASCULAR LABORATORY REPORT 11/27/2017 4:04 PM MANIFEST/ORDER ORGANIZER PRINT ORDERS documented in this encounter Results * VASCULAR LABORATORY REPORT (11/27/2017 4:04 PM MANIFEST/ORDER ORGANIZER PRINT ORDERS) Anatomical Region Laterality Modality Ultrasound us Provider Scanning CV VASCULAR PROCEDURES Final R esult * VASCULAR LABORATORY REPORT (11/27/2017 4:04 PM MANIFEST/ORDER ORGANIZER PRINT ORDERS) Anatomical Region Laterality Modality Ultrasound us Provider [...] Comment:06/18/2024 IP Review: case reviewed by IP [facility], ok to come off precautions. Lissy Johnson, RN +AFB stain 06/17/2024 06/17/2024 06/18/2024 10:45 AM CDT C. 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 12/16/2024 3:05 AM MANIFEST/ORDER ORGANIZER PRINT ORDERS COVID: Suspected 07/23/2024 07/24/2024 07/24/2024 4:49 AM CDT COVID: Suspected 12/18/2024 12/18/2024 12/18/2024 10:17 PM MANIFEST/ORDER ORGANIZER PRINT ORDERS C. difficile suspected 12/22/2024 12/23/202412/23 5:56 AM MANIFEST/ORDER ORGANIZER PRINT ORDERS VRE Comment:Contact Precautions (gown and gloves) - Vladimir BURRELL RN 01/06/25 12/23/2024 12/23/2024 documented as of this encounter Care Teams Rag Washer Relationship Specialty Start Date End Date Kirt Lindsay DO PCP - General 05/02/17 11/22/20 Halie Khan MD [address] [address] PCP - General Critical Care Med 11/23/20 02/01/21 Kirt Lindsay DO PCP - General Internal Medicine 02/02/21 Josué Del Valle MD PhD Medical Oncologist/Solar Thermal Installer Medical Oncology 08/26/19 Tay Charlton MD [address] [place] [id number] Consulting Physician Gastroenterology 12/03/21 06/11/23 Halie Khan MD [address] [facility] [address] [place] [phone] Consulting Physician Pulmonary Disease 12/12/21 3 Ant Starks MD [address] [facility] [address] [place] [phone] Consulting Physician Transplant Hepatology 01/12/22 Cal Carranza DO [address] [facility] [address] [place] [id number] Clay Press Operator Internal Medicine 06/12/23 Halie Khan MD [address] [facility] [address] [place] [phone] Teacher Drama Critical Care Med 06/12/23 Wilfred Kinsey MD [address] [address] Consulting Physician Gastroenterology 03/02/24 documented as of this encounter
--- OUTSIDE RECORDS SUMMARY | 2025-02-03 18:07 | XMS_ITS | Referral Summary ---
Author Organization [facility] Address [address] [place] [address] Care Team Providers Care Cancer Program Director Name Role Phone Josué Del Valle MD PhD Unavailable Kirt Lindsay DO Primary Care Provider [phone] Cal Carranza DO Unavailable [phone] Halie Khan MD Unavailable Wilfred Kinsey MD Unavailable Encounters Date Type Department Care Team Description 5 9:15 AM HEARSE DRIVER Home Care Visit [address] [place] [address] Roxy Aaron, PT PT VIRTUAL OASIS DISCHARGE 5 Home Care Visit [address] [place] [address] Júnior Lal [facility] CASE COMMUNICATION 5 Home Care Visit [address] [place] [address] Júnior Lal TABLE GAMES SUPERVISOR CASE COMMUNICATION 5 Results Follow-Up [facility] Gastroenterolo gy [address] [facility] [address] [place] [phone] Edith Orlando LPN 5 Home Care Visit [address] [place] [address] Júnior Lal, [facility] CASE COMMUNICATION 5 Home Care Visit [address] [place] [address] Roxy Aaron, PT CASE COMMUNICATION 5 Home Care Visit [address] [place] [address] Roxy Aaron, PT CARE CONFERENCE 5 9:30 AM HEARSE DRIVER Home Care Visit [address] [place] [address] Dora De Dios, RN SN INITIAL EVALUATION 5 Telephone [facility] Scheduling [address] [place] [address] Resource, Homecare Scheduling 5 Documentation Gastroententer Bony Guerrero MD 5 Telephone [facility] Gastroenter[facility] [address] [facility] 12th [place] [address] Genna Hemphill RN 5 Plan of Care Documentation [address] [place] [address] 5 Telephone [facility] Bone Marrow Transplant [address] [place] [address] Floor 6 [place] [phone] Josué Del Valle MD PhD 5 11:00 AM HEARSE DRIVER Home Care Visit [address] [place] [address] Roxy Aaron, PT PT OASIS START OF CARE 5 Orders Only [facility] Bone Marrow Transplant [address] [place] [address] 6 [place] [address] Josué Rice RN 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) (Primary Dx) [address] [place] [address] Debra Barnes, BECKI [address] [place] [address] Debra Barnes RN 5 Telephone [facility] Bone Marrow Transplant [address] [place] [address] 6 [place] [phone] Josué Del Valle MD PhD 5 6:09 PM HEARSE DRIVER - 5 5:34 PM [facility] [address] [address] Josué Del Valle MD PhD Xavier, MD Sandi Cali Neha, MD Acute myeloid leukemia in remission (HCC) (Primary Dx); AML (acute myeloid leukemia) in remission (HCC); Type 2 diabetes mellitus with hyperglycemia, with long-term current use of insulin (HCC); Pgznq-fuckuh-kgmz disease (HCC); H/O allogeneic bone marrow transplant (HCC); Pure hypercholesterolemia; Dysphagia, unspecified type; Esophageal dysphagia Discharge Disposition: Discharge to home, home health skilled care 5 8:17 AM HEARSE DRIVER Anesthesia Event [facility] [address] [place] [phone] Peter Crain MD 5 8:00 AM HEARSE DRIVER - 5 8:30 AM HEARSE DRIVER Surgery [facility] [address] [place] [phone] Gretta Stovall MD ENDO ADD ON ESOPHAGOGASTRODUODENOSCOPY BIOPSY 5 3:55 PM HEARSE DRIVER Anesthesia Event [facility] 1 [place] [address] Peter Crain MD 5 Orders Only [facility] Bone Marrow Transplant [address] [facility] Floor 6 [place] [address] Josué Del Valle MD PhD Acute myeloid leukemia in remission (HCC) (Primary Dx) 5 Documentation [facility] Oncology [address] [facility] Floor 5 [place] [phone] Josué Diego MD PhD 5 Telephone [facility] Infectious Diseases [address] [facility] [address] [place] [phone] Page Marsh 5 Telephone [facility] Gastroenterolo [facility] [address] [facility] Medicine 12th [place] [address] [place] [phone] Genna Hemphill RN 5 Telephone [facility] Bone Marrow Transplant [address] [place] [address] Floor 6 [place] [phone] Josué Del Valle MD PhD 5 Telephone [facility] Infectious Diseases [address] [facility] [address] [place] [phone] Elisa Molina RN Rescheule missed October ID appt 5 12:35 PM HEARSE DRIVER - 5 3:15 PM HEARSE DRIVER Hospital Encounter [address] [phone] Josué Del Valle MD PhD Juan A Chanel DO AML s/p Allo SCT in 2008 (Primary Dx) Discharge Disposition: Discharge to home or self care 5 Documentation Bone Marrow Transplant Josué Diego MD PhD 5 Telephone [facility] Bone Marrow Transplant [facility] 6 [place] [phone] Josué Del Valle MD PhD 4 11:27 PM HEARSE DRIVER - 5 2:47 PM HEARSE DRIVER Hospital Encounter [address] [address] Akhil Ashley MD Dipersio, John F., MD PhD Vahid, Cruz Hartman MD PhD Food impaction of esophagus, initial encounter (Primary Dx); Food bolus obstruction of intestine (HCC); Acute myeloblastic leukemia, in remission (HCC) Discharge Disposition: Discharge to home or self care 4 4:10 PM HEARSE DRIVER Anesthesia Event [facility] [address] [place] [phone] Fermin Jiang MD Dubois, Ashley Michelle, AMAYA 4 3:55 PM HEARSE DRIVER - 4 4:20 PM HEARSE DRIVER Surgery [facility] [address] [phone] Hany Martinez MD ESOPHAGOGASTRODUODENOSCOPY WITH REMOVAL FOREIGN BODY 4 Orders Only [facility] Bone Marrow Transplant [address] [facility] Floor 6 [place] [address] Josué Del Valle MD PhD AML s/p Allo SCT in 2008 (Primary Dx) 4 Telephone [facility] Infectious Diseases [address] [facility] [address] [place] [address] Anjana Waller LCSW from Last 3 Months Allergies Active Allergy Reactions Criticality Noted Date Comments Adhesive Redness Low burn Medications omega-3 fatty acids (LOVAZA) 1 gram capsuleIndications: hypertriglyceridemi a Take 1 capsule by mouth daily 02/10/20 21 Active oxygenIndications:D yspnea Administer 3 L/min into each nostril nightly Nightly and PRN Active cholecalciferol (VITAMIN D-3) 25 mcg (1,000 unit) tabletIndications:V itamin D Deficiency Take 2 tablets by mouth every morning 11/13/20 21 Active flash glucose scanning reader (FreeStyle Evaristo 2 [place]) [facility] Use to test blood glucose continuously 1 each 1 03/17/20 23 Active flash glucose sensor (FreeStyle Evaristo 2 Sensor) kitIndications:Type 2 diabetes mellitus with hyperosmolarity without coma, with long-term current use of insulin (HCC) Change sensor every 14 days 2 kit 02/10/20 24 Active cyanocobalamin (Vitamin B-12) 1,000 mcg tablet Take 1 tablet (1,000 mcg total) by mouth every morning 01/31/20 24 Active guaiFENesin ER (MUCINEX) 600 mg 12 hr tabletIndications:C ough Take 1 tablet by mouth 2 (two) times a day Active albuterol 2.5 mg /3 mL (0.083 %) nebulizer solutionIndications :Chronic Obstructive Pulmonary Disease Take 3 mL by nebulization every 6 (six) hours as needed for wheezing or shortness of breath Active tacrolimus 0.5 mg immediate-release capsuleIndications: stem cell transplant TAKE ONE CAPSULE BY MOUTH EVERY OTHER DAY 15 capsule 11 07/03/20 24 Active acyclovir (ZOVIRAX) 400 mg tabletIndications:P rophylaxis, Medical Take 1 tablet (400 mg total) by mouth 3 (three) times a day 07/31/20 24 Active empagliflozin (JARDIANCE) 10 mg tabletIndications:h eart failure associated with type 2 diabetes mellitus Take 1 tablet (10 mg total) by mouth daily 30 tablet 07/31/20 24 Active mycophenolate mofetil (CELLCEPT) 500 mg tabletIndications:G raft Versus Host Disease TAKE TWO TABLETS BY MOUTH TWICE DAILY 180 tablet 11 08/17/20 24 Active fluticasone-umeclid in-vilanter (Trelegy Ellipta) 200-62.5-25 mcg inhalerIndications: Maintenance Therapy for Asthma INHALE 1 PUFF BY MOUTH DAILY (BULK) 1 each 11 09/08/20 24 Active montelukast (SINGULAIR) 10 mg tabletIndications:M aintenance Therapy for Asthma Take 1 tablet (10 mg total) by mouth nightly 30 tablet 3 11/02/20 24 Active ondansetron ODT (ZOFRAN-ODT) 4 mg disintegrating tabletIndications:n ausea Take 1 tablet (4 mg total) by mouth every 8 (eight) hours as needed for nausea or vomiting 20 tablet 11/18/19 25 Active sucralfate (CARAFATE) 1 gram tablet Take 1 tablet (1 g total) by mouth 4 (four) times a day (with meals and nightly) 11/18/19 25 026 Active gabapentin (NEURONTIN) 300 mg capsuleIndications: Neuropathic Pain Take 1 capsule (300 mg total) by mouth 4 (four) times a day as needed (pain) 11/18/19 25 Active azithromycin (ZITHROMAX) 500 mg tabletIndications:M ycobacteriosis Take 1 tablet (500 mg total) by mouth daily 11/18/19 25 Active ethambutoL (MYAMBUTOL) 400 mg tabletIndications:M ycobacteriosis Take 3 tablets (1,200 mg total) by mouth daily 11/18/19 25 Active insulin aspart (NovoLOG) 100 unit/mL (3 mL) pen for injectionIndication s:type 2 diabetes mellitus Resume home sliding scale 11/18/19 25 Active multivitamin with folic acid 400 mcg tablet Take 1 tablet by mouth daily 30 tablet 12/01/19 25 Active clopidogreL (PLAVIX) 75 mg tabletIndications:P eripheral Arterial Thromboembolism Prevention Take 1 tablet (75 mg total) by mouth daily 30 tablet 01/02/[address] (PROTONIX) 40 mg EC tablet Take 1 tablet (40 mg total) by mouth 2 (two) times a day 112 tablet 01/02/20 25 025 Active amoxicillin-clavula robert (AUGMENTIN) 875-125 mg per tabletIndications:P neumonia, Community Acquired Take 1 tablet (875 mg of amoxicillin total) by mouth 2 (two) times a day for 4 doses 4 tablet 01/02/20 25 025 oxyCODONE (ROXICODONE) 10 mg tabletIndications:P ain Take 1 tablet (10 mg total) by mouth every 6 (six) hours as needed for pain for up to 7 days 28 tablet 01/02/20 25 025 Active Problems Patient Care Coordination No te Formatting of this note is d ifferent from the original. BMT Inpatient Care Coordination Overview Diagnosis AML Floor [id number] Treatment Plan Clinical Trial Reason for Admission From OSH for sepsis and elevated LFTs Transplant/IEC Planning BMT/IEC Plan S/p sib allo 11/09/2009- gvhd to eyes HLA typing/IDMs Insurance Approvals/Issues Discharge Planning Anticipated Discharge Date 12/23/24 Patient Education Completed Issue to be Resolved Before Discharge Discharge Disposition Home Requests Sent to Case Management and/or Medical Assistants Post-Discharge Follow-Up Living Situation/Distance from [facility] Viveros (local) - 30 min Caregiver Lab/Transfusion Frequency Phone: Fax: Venous Access & Care peripheral Local Oncologist Contact Phone: Fax: Post-Discharge Office Visit (H30) JFNimisha - 01/06 w/ TESTING 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 Jame TREJO - Sometimes no-shows for appts Miscellaneous Notes: Problem Noted Date Diagnosed Date Macrocytic anemia 01/02/2025 Assessment & Plan (01/02/2025 6:23 PM HEARSE DRIVER): Likely secondary to COPD. vitamin B12, folic acid wNL. Epigastric pain 01/02/2025 Assessment & Plan (01/02/2025 6:25 PM HEARSE DRIVER): 2/2 esophageal ulcers. PPI BID Karafate Oxycodone 10 mg q6hprn. Avoid NSAID. Chronic hypoxic respiratory failure 12/28/2024 Assessment & Plan (12/28/2024 7:07 PM HEARSE DRIVER): 2/2 copd. Stable oxygen requirement. Continue inhaled therapies and supplemental o2. Ulcer of esophagus without bleeding 12/25/2024 Assessment & Plan (01/01/2025 4:00 PM HEARSE DRIVER): EGD 01/01/25 Esophageal ulcers with no stigmata of recent bleeding. Linear ulcers had mild spontaneous oozing. Biopsied and sent for CMV, HSV and MAC. Continue BID PPI for 8 weeks, continue karafate. Needs repeat EGD in 8 weeks to confirm healing. Biopsy needs to be followed. Hb stable. Other pulmonary embolism without acute cor pulmo nale 12/19/2024 Assessment & Plan (01/01/2025 4:21 PM HEARSE DRIVER): History of DVT 2012, 2017, PE in 2012. He takes Xarelto at home which was held for EGD. Since remote h/o PE/DVT, will not discharge on xarelto due to multiple esophageal ulcers and risk of bleeding. Moderate protein-calorie malnutrition 11/30/2024 Assessment & Plan (01/01/2025 4:21 PM HEARSE DRIVER): Supplement of choice tid w meals. Assessment & Plan (11/30/2024 8:14 AM HEARSE DRIVER): Diagnosed by RD per ASPEN criteria. Malnutrition can delay patient's recover from his infection. 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 On triple regimen recommended by ID. 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 daily Check tacrolimus levels, last level on 11/30/24 <1.0. Pharmacist was consulted at that time and was advised that no change of dose was necessary. He is on MMF as well. Tacrolimus level on 01/01/25 less than 1.0. Will keep dose same and re-assess at next outpatient visit. Assessment & Plan (11/17/2024 12:20 PM HEARSE DRIVER): Involving the eyes and the lungs - MMF 1 g b.i.d., tacro 0.5 every other day, and he is on prednisone only when he has wheezing or sob- 20mg a day -Tac level M/. Coronary artery disease invo lving pauma coronary artery of pauma heart without angina pectoris 11/16/2024 Assessment & Plan (01/01/2025 4:18 PM HEARSE DRIVER): Continue Plavix (held for procedure) Holding statin due to elevated LFT 08/11- EF 30%, Global hypokinesis Resume toprol 12.5 mg from 01/02/25. Resume plavix from 01/02/25. Assessment & Plan (11/28/2024 1:53 PM HEARSE DRIVER): Hx of STEMI s/p PCI to RCA 2022 -Continue home plavix 75 mg daily, atorvastatin Assessment & Plan (11/18/2024 10:42 AM HEARSE DRIVER): S/p PCI to RCA in 2022 -cont [...] OSH stay Acute on chronic respiratory failure 07/23/2024 Assessment & Plan (07/26/2024 11:51 AM CDT): Hx Mycoplasma avium and cavitary lung disease, hx Stenotrophamonas PNA 05/2024, HFpEF, COPD on chronic O2. Presenting for 4d of worsening SOB. Presented to [facility] ED 07/19 for SOB and treated for COPD exac with pred course. Presented to [place] on 07/21 for worsening SOB. CXR and [...] 07/15/2024 Troponin level elevated 07/15/2024 Nontuberculous mycobacterial infection Assessment & Plan (12/28/2024 7:14 PM HEARSE DRIVER): Follows up with ID for history of nontuberculous mycobacterial infection. - Transplant ID consulted - restarted azithromcyin and ethambutol on 12/21. Defer clofazimine for at least 1 week following resolution of transaminitis Assessment & Plan (11/17/2024 12:22 PM HEARSE DRIVER): Follows with ID; last seen in clinic [...] now with expectation of submitting this to [facility] on ~07/13. Beginning empiric therapy [...] [facility] clinic (Dr. Pinzon) Protein-calorie malnutrition, severe 06/16/2024 Assessment & Plan (11/17/2024 12:22 PM HEARSE DRIVER): RD following Assessment & Plan (07/24/2024 1:02 [...] broad-spectrum antibiotics with vanco and Zosyn 06/16 Pulmonary emphysema 06/15/2024 Assessment & Plan (12/19/2024 12:50 AM HEARSE DRIVER): On chronic oxygen therapy with 3 L nasal cannula during daytime, 5 L nasal cannula during night time Smokes cigarettes occasionally, uses nicotine patches at home Continue montelukast, Trelegy Ellipta inhaler, DuoNebs p.r.n. Assessment & Plan (11/28/2024 4:11 PM HEARSE DRIVER): Last PFT 08/15/23: FEV1 35% predicted. Residual [...] goal O2: >90% History of leukemia 04/02/2024 MSSA bacteremia 03/28/2024 Pericardial effusion 03/28/2024 Hyponatremia 03/28/2024 Dysphagia 02/20/2024 Assessment & Plan (12/23/2024 11:51 AM HEARSE DRIVER): -History of Kovacs's esophagus next and endoscopy was on 16 of November showed food in middle 3rd of esophagus, stasis esophagitis in the mid esophagus. Path showed Cardia-type gastric mucosa with intestinal metaplasia. -Gi consulted, recommended outpatient follow up for EGD. Kovacs's esophagus without dysplasia 02/20/2024 Assessment & Plan (01/01/2025 4:01 PM HEARSE DRIVER): EGD 11/16 showed food in middle 3rd of esophagus, stasis esophagitis in the mid esophagus. 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 -Continue carafate 1g bid, PPI bid. - benign esophageal stenosis seen in EGD onn 01/01/25. Dilated to 18 mm. -Repeat EGD 2 months from 01/01. Assessment & Plan (11/28/2024 4:10 PM HEARSE DRIVER): Admitted recently due to food stuck at chest. EGD 11/16 showed food in middle 3rd of esophagus, stasis esophagitis in the mid esophagus. 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 -Continue carafate 1g bid, PPI bid. -Repeat EGD 3 months from 11/17 Assessment & Plan (11/18/2024 10:43 AM HEARSE DRIVER): After eating chicken/spaghetti on 11/14 felt pressure/stuck [...] 02/13/2022 Assessment & Plan (12/01/2024 12:17 PM HEARSE DRIVER): Patient reports symptom of chest tightness. CT at OSH showed new infiltrate at left upper lobe. Has know cavitary lung lesion from July. Previously on amikacin but was held due to elevated creatinine. Suspect that CAP is the main locomotive driver of patient's symptoms. May have some [...] disease) Assessment & Plan (11/17/2024 12:17 PM HEARSE DRIVER): He has Ventolin inhaler, Trelegy inhaler, albuterol inhaler, and Singulair 10 a day. On 3L oxygen at home Biliary sludge 12/20/2021 Overview (12/20/2021): Added automatically from request for surgery [id number] Other osteoporosis without current pathological fracture 11/23/2021 Encounter for removal of biliary stent Overview (10/03/2021): Added automatically from request for surgery [id number] History of DVT (deep vein thrombosis) 09/08/2021 [...] (09/07/2021): Added automatically from request for surgery [id number] Assessment & Plan (07/25/2024 12:01 PM CDT): - Recent hx pancreatitis admission without obvious source. Pain was slowly recurring in the last few days. Lipase was WNL at LFTs wnl at OSH and wnl on repeat here. Improving. - Pain control. - Tolerating mechanical soft diet Upper GI bleed 09/07/2021 Overview (09/07/2021): Added automatically from request for surgery [id number] Assessment & Plan (09/10/2021 9:18 AM CDT): [...] (03/30/2021): Added automatically from request for surgery [id number] Assessment & Plan (08/09/2021 10:27 AM CDT): [...] stable IOP No sig wound edema Start PF QID OD Ofloxacin QID OD [place] QID OD RTC 1 month Assessment & Plan (05/13/2021 8:28 AM CDT): POD1 s/p CE/PCIOL OD Doing well, with moderate k edema and AC cell No sig wound edema Start PF QID OD Ofloxacin QID OD [place] QID OD RTC 1 week Combined [...] of dysbiosis due to disruption of normal oscar with history of antibiotic exposure. Recommend [...] (06/16-06/20) Assessment & Plan (11/26/2019 10:45 AM HEARSE DRIVER): POA. Possibly community-acquired and/or 2/[address] Strep pneumoniae pos sputum cx. See SOB problem. Shortness of breath 11/20/2019 Assessment & Plan (11/27/2019 12:14 PM HEARSE DRIVER): Concern for poss GVHD and/or poss COPD [...] 14-day course - Continue immunosuppresives. - Pulm toilet - Walking O2 assessment CHF (congestive heart failure) 11/20/2019 Assessment & Plan (11/28/2024 3:54 PM HEARSE DRIVER): Echo 11/24 at OSH: LVEF 40-45% wit hinferior akinesis, similar to EF in 2022, mild MR -Continue home metoprolol 12.5 mg daily, jardiance 10 mg daily Assessment & Plan (11/16/2024 3:06 AM HEARSE DRIVER): Euvolemic on exam currently; no new SOB - continue metop, jardiance Assessment & Plan (07/26/2024 11:49 AM CDT): TTE 03/2024 with LVEF 50-55%. Pro BNP at OSH >30k. Last adm here 1012. Appears euvolemic. S/p Lasix at OSH and not chronically [place] [address] - repeat TTE 07/24: LVEF 30%, moderate [...] 1012 Assessment & Plan (11/28/2019 10:27 AM HEARSE DRIVER): Closely monitor blood sugar to avoid hypoglycemia Assessment & Plan (11/27/2019 1:35 PM HEARSE DRIVER): Closely monitor blood sugar to avoid hypoglycemia Assessment & Plan (11/26/2019 5:32 PM HEARSE DRIVER): Closely monitor blood sugar to avoid hypoglycemia Assessment & Plan (11/25/2019 4:51 PM HEARSE DRIVER): Closely monitor blood sugar to avoid hypoglycemia Assessment & Plan (11/24/2019 4:57 PM HEARSE DRIVER): Closely monitor blood sugar to avoid hypoglycemia Assessment & Plan (11/23/2019 2:01 PM HEARSE DRIVER): Closely monitor blood sugar to avoid hypoglycemia Assessment & Plan (11/24/2019 10:51 AM HEARSE DRIVER): With diastolic dysfunction, new diagnosis. -Continue Lasix. [...] TID Assessment & Plan (11/20/2019 4:17 PM HEARSE DRIVER): Continue gabapentin Tobacco abuse 11/20/2019 Assessment & Plan (06/16/2024 6:44 PM CDT): Encourage cessation Assessment & Plan (11/20/2019 4:18 PM HEARSE DRIVER): Nicotine patch Depressed mood 11/24/2018 Assessment & Plan (11/24/2018 4:56 PM HEARSE DRIVER): With feelings of depressed mood prior to [...] recommended pharm therapy. DVT (deep venous thrombosis) 11/23/2018 Assessment & Plan (11/28/2024 1:53 PM HEARSE DRIVER): Hx of PE in 2012, DVT IJ 2017 -Continue home xarelto 20 mg dialy Assessment & Plan (11/18/2024 10:42 AM HEARSE DRIVER): DVT lower ext 2012, DVT IJ 2017, [...] CDT): - History of DVT 2012, 2017, PE in 2012. He takes Xaralto at home - Continue to take Xaralto 20 mg Po daily. Assessment & Plan (08/17/2021 12:28 PM CDT): 2 events of PE/DVT and only DVT in 2012 and 2017 Resume home Xeralto Assessment & Plan (11/20/2019 3:57 PM HEARSE DRIVER): Continue xarelto Assessment & Plan (11/23/2018 11:32 AM HEARSE DRIVER): Cont Xarelto. Sinusitis 11/22/2018 Assessment & Plan (11/24/2018 4:48 PM HEARSE DRIVER): Chronic issue over last 2 months. -With [...] shows no PE-->no pneumonia. COPD with exacerbation ([facility]) 11/22/2018 Assessment & Plan (07/24/2024 1:00 [...] Trelegy Ellipta -continue home dose of montelukast Assessment & Plan (08/19/2021 9:48 AM CDT): [...] exertion Assessment & Plan (11/20/2019 4:16 PM HEARSE DRIVER): Continue inhalers Assessment & Plan (11/23/2018 11:29 AM HEARSE DRIVER): Continues to smoke >1 ppd. -Cont steroids at current dose. -Cont Advair diskus BID, cont albuterol inh QID. -Encourage smoking cessation. Cont nicotine patch. Cough 10/17/2018 Pure hypercholesterolemia 08/04/2018 Assessment & Plan (02/12/2022 6:02 AM CDT): - continue home dose atorvastatin 40 mg PO daily Assessment & Plan (01/15/2020 3:22 PM HEARSE DRIVER): -LDL at goal -will continue atorvastatin 40 mg daily Assessment & Plan (11/28/2019 10:27 AM HEARSE DRIVER): On atorvastatin 40 mg daily Assessment & Plan (11/27/2019 1:35 PM HEARSE DRIVER): On atorvastatin 40 mg daily Assessment & Plan (11/26/2019 5:32 PM HEARSE DRIVER): On atorvastatin 40 mg daily Assessment & Plan (11/25/2019 4:50 PM HEARSE DRIVER): On atorvastatin 40 mg daily Assessment & Plan (11/24/2019 4:57 PM HEARSE DRIVER): On atorvastatin 40 mg daily Assessment & Plan (11/23/2019 2:02 PM HEARSE DRIVER): On atorvastatin 40 mg daily Assessment & Plan (11/20/2019 4:18 PM HEARSE DRIVER): Continue statin Assessment & Plan (08/07/2019 1:35 [...] level Assessment & Plan (01/15/2020 3:22 PM HEARSE DRIVER): -vitamin D levels still low, unclear compliance -will continue current regimen Assessment & Plan (11/28/2019 10:29 AM HEARSE DRIVER): Last vitamin-D level low at 16. Continue vitamin D2 53689 units weekly and vitamin D3 2000 units daily Assessment & Plan (11/27/2019 1:35 PM HEARSE DRIVER): Last vitamin-D level low at 16. Continue vitamin D2 33305 units weekly and vitamin D3 2000 units daily Assessment & Plan (11/26/2019 5:32 PM HEARSE DRIVER): Last vitamin-D level low at 16. Continue vitamin D2 83343 units weekly and vitamin D3 2000 units daily Assessment & Plan (11/25/2019 4:51 PM HEARSE DRIVER): Last vitamin-D level low at 16. Continue vitamin D2 95905 units weekly and vitamin D3 2000 units daily Assessment & Plan (11/24/2019 4:57 PM HEARSE DRIVER): Last vitamin-D level low at 16. Continue vitamin D2 32778 units weekly and vitamin D3 2000 units daily Assessment & Plan (11/23/2019 2:02 PM HEARSE DRIVER): Last vitamin-D level low at 16. Continue vitamin D2 11374 units weekly and vitamin D3 2000 units [...] compliant with vitamin D3 1000 IU daily Acute myeloid leukemia in remission 05/06/2018 Assessment & Plan (12/30/2024 4:24 PM HEARSE DRIVER): S/p 7+3 HIDAC consolidation * 3, decitabine maintenance on CALG 13416. Had relapse s/p AMD/MEC. 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 OI ppx: acv, Hold cresemba 2/2 transaminitis. Assessment & Plan (11/28/2024 1:55 PM HEARSE DRIVER): S/p 7+3 HIDAC consolidation * 3, decitabine [place] on CALG 95508. Had relapse s/p AMD/MEC. 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 -OI ppx: acv, crsemba Assessment & Plan (11/18/2024 10:41 AM HEARSE DRIVER): AML. S/p 7+3 and hidac consolidation x3, decitabine maintenance on CALG 39405 protocol. Had relapse s/p AMD/MEC. 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 -Last seen by Dr. Del Valle 06/12/23, in remission - acyclovir 400 t.i.d and antifungal ppx with voriconazole vs cresemba. Plan med rec w Chief Of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 HISTOPLASMA ANTIBODY Routine 12/20/2024 12:41 AM HEARSE DRIVER ASPERGILLUS GALACTOMANNAN ANTIGEN Routine 12/20/2024 12:41 AM HEARSE DRIVER BLASTOMYCES ANTIBODY, EIA, S Routine 12/2024 12:41 AM HEARSE DRIVER COCCIDIOIDES ANTIBODY SCREEN W/REFLEX Routine 12/20/2024 12:41 AM HEARSE DRIVER HERPES SIMPLEX VIRUS (HSV) PCR Routine 0 12/20/2024 12:41 AM HEARSE DRIVER JOHNNY-ROTH VIRUS VCA ANTIBODY PANEL Routine 12/20/2024 12:41 AM HEARSE DRIVER CYTOMEGALOVIRUS (CMV) DNA, QUANT GEN LAB Routine 12/20/2024 12:41 AM HEARSE DRIVER HISTOPLASMA ANTIGEN Routine 12/19/2024 10:25 PM HEARSE DRIVER POCT GLUCOSE DEVICE Routine 12/19/2024 7:55 PM HEARSE DRIVER POCT GLUCOSE DEVICE Routine 12/19/2024 6:05 PM HEARSE DRIVER SPUTUM INDUCTION Routine 12/19/2024 2:52 PM HEARSE DRIVER SPUTUM INDUCTION Routine 12/19/2024 2:52 PM HEARSE DRIVER SPUTUM INDUCTION Routine 12/19/2024 2:52 PM HEARSE DRIVER POCT GLUCOSE DEVICE Routine 12/19/2024 11:[address] CHEST ABDOMEN PELVIS W CONTRAST ED Urgent/IP Urgent 12/19/2024 9:00 AM HEARSE DRIVER POCT GLUCOSE DEVICE Routine 12/19/2024 7:47 AM HEARSE DRIVER EGFR Routine 12/19/2024 4:40 AM HEARSE DRIVER MANUAL DIFFERENTIAL Routine 12/19/2024 4:40 AM HEARSE DRIVER CBC WITHOUT DIFFERENTIAL Routine 025 4:40 AM HEARSE DRIVER HEPATIC FUNCTION PANEL Routine 4:40 AM HEARSE DRIVER BASIC METABOLIC PANEL Routine 12/19/2024 4:40 AM HEARSE DRIVER PHOSPHORUS Routine 12/19/2024 4:40 AM HEARSE DRIVER MAGNESIUM Routine 12/19/2024 4:40 AM HEARSE DRIVER BMT CBC Routine 12/19/2024 4:40 AM HEARSE DRIVER HEPATITIS B SURFACE ANTIBODY (IMMUNE STATUS) Routine 12/19/2024 4:40 AM HEARSE DRIVER URINALYSIS AND REFLEX TO MICROSCOPIC AND CULTURE STAT 12/18/2024 10:01 PM HEARSE DRIVER LEGIONELLA ANTIGEN, URINE Routine 2024 10:01 PM HEARSE DRIVER XR CHEST 1 VIEW IP Routine 12/18/2024 8:55 PM HEARSE DRIVER CREATINE KINASE (CK), TOTAL STAT 11/20 8:21 PM HEARSE DRIVER EGFR STAT 12/18/2024 8:21 PM HEARSE DRIVER BILIRUBIN, DIRECT STAT 12/18/2024 8:21 PM HEARSE DRIVER MANUAL DIFFERENTIAL STAT 12/18/2024 8:21 PM HEARSE DRIVER CBC WITHOUT DIFFERENTIAL STAT 025 8:21 PM HEARSE DRIVER TROPONIN I HIGH-SENSITIVITY STAT 11/20 8:21 PM HEARSE DRIVER LACTATE STAT 12/18/2024 8:21 PM HEARSE DRIVER FIBRINOGEN STAT 12/18/2024 8:21 PM HEARSE DRIVER TYPE AND SCREEN STAT 12/18/2024 8:21 PM HEARSE DRIVER APTT STAT 12/18/2024 8:21 PM HEARSE DRIVER PROTIME-INR STAT 12/18/2024 8:21 PM HEARSE DRIVER URIC ACID STAT 12/18/2024 8:21 PM HEARSE DRIVER LACTATE DEHYDROGENASE STAT 12/18/2024 8:21 PM HEARSE DRIVER PHOSPHORUS STAT 12/18/2024 8:21 PM HEARSE DRIVER MAGNESIUM STAT 12/18/2024 8:21 PM HEARSE DRIVER COMPREHENSIVE METABOLIC PANEL STAT 8:21 PM HEARSE DRIVER BMT CBC STAT 12/18/2024 8:21 PM HEARSE DRIVER BARTONELLA ANTIBODY PANEL Routine 2024 8:21 PM HEARSE DRIVER HEPATITIS PANEL, ACUTE Routine 8:21 PM HEARSE DRIVER BLOOD CULTURE STAT 12/18/2024 8:21 PM HEARSE DRIVER INFECTION PREVENTION MRSA ON LY (STAPHYLOCOCCUS AUREUS) CULTURE Routine 12/18/2024 8:21 PM HEARSE DRIVER RESPIRATORY PATHOGEN PANEL STAT 12/18 8:21 PM HEARSE DRIVER ECG 12-LEAD STAT 12/18/2024 6:22 PM HEARSE DRIVER POCT GLUCOSE DEVICE Routine 12/01/2024 12:16 PM HEARSE DRIVER POCT GLUCOSE DEVICE Routine 12/01/2024 8:16 AM HEARSE DRIVER EGFR Routine 12/01/2024 4:28 AM HEARSE DRIVER MANUAL DIFFERENTIAL Routine 12/01/2024 4:28 AM HEARSE DRIVER CBC WITHOUT DIFFERENTIAL Routine 4:28 AM HEARSE DRIVER BASIC METABOLIC PANEL Routine 12/01/2024 4:28 AM HEARSE DRIVER PHOSPHORUS Routine 12/01/2024 4:28 AM HEARSE DRIVER MAGNESIUM Routine 12/01/2024 4:28 AM HEARSE DRIVER BMT CBC Routine 12/01/2024 4:28 AM HEARSE DRIVER POCT GLUCOSE DEVICE Routine 11/30/2024 8:47 PM HEARSE DRIVER POCT GLUCOSE DEVICE Routine 11/30/2024 4:[address] BODY OUTSIDE CONSULT Routine 11/30/19 2:25 PM HEARSE DRIVER POCT GLUCOSE DEVICE Routine 11/30/2024 11:55 AM HEARSE DRIVER TACROLIMUS LEVEL, TROUGH Timed 025 8:54 AM HEARSE DRIVER POCT GLUCOSE DEVICE Routine 11/30/2024 8:37 AM HEARSE DRIVER EGFR Routine 11/30/2024 4:13 AM HEARSE DRIVER MANUAL DIFFERENTIAL Routine 11/30/2024 4:13 AM HEARSE DRIVER CBC WITHOUT DIFFERENTIAL Routine 025 4:13 AM HEARSE DRIVER PROTIME-INR Routine 11/30/2024 4:13 AM HEARSE DRIVER APTT Routine 11/30/2024 4:13 AM HEARSE DRIVER LACTATE DEHYDROGENASE Routine 11/30/2024 4:13 AM HEARSE DRIVER URIC ACID Routine 11/30/2024 4:13 AM HEARSE DRIVER COMPREHENSIVE METABOLIC PANEL Routine 4:13 AM HEARSE DRIVER TYPE AND SCREEN Timed 11/30/2024 4:13 AM HEARSE DRIVER PHOSPHORUS Routine 11/30/2024 4:13 AM HEARSE DRIVER MAGNESIUM Routine 11/30/2024 4:13 AM HEARSE DRIVER BMT CBC Routine 11/30/2024 4:13 AM HEARSE DRIVER POCT GLUCOSE DEVICE Routine 11/29/2024 9:06 PM HEARSE DRIVER POCT GLUCOSE DEVICE Routine 11/29/2024 5:14 PM HEARSE DRIVER POCT GLUCOSE DEVICE Routine 11/29/2024 1:11 PM HEARSE DRIVER POCT GLUCOSE DEVICE Routine 11/29/2024 8:13 AM HEARSE DRIVER EGFR Routine 11/29/2024 12:29 AM HEARSE DRIVER MANUAL DIFFERENTIAL Routine 11/29/2024 12:29 AM HEARSE DRIVER CBC WITHOUT DIFFERENTIAL Routine 025 12:29 AM HEARSE DRIVER BASIC METABOLIC PANEL Routine 11/29/2024 12:29 AM HEARSE DRIVER PHOSPHORUS Routine 11/29/2024 12:29 AM HEARSE DRIVER MAGNESIUM Routine 11/29/2024 12:29 AM HEARSE DRIVER BMT CBC Routine 11/29/2024 12:29 AM HEARSE DRIVER POCT GLUCOSE DEVICE Routine 11/28/2024 9:30 PM HEARSE DRIVER POCT GLUCOSE DEVICE Routine 11/28/2024 5:09 PM HEARSE DRIVER ECG 12-LEAD STAT 11/28/2024 1:47 PM HEARSE DRIVER EGFR STAT 11/28/2024 1:40 PM HEARSE DRIVER MANUAL DIFFERENTIAL STAT 11/28/2024 1:40 PM HEARSE DRIVER CBC WITHOUT DIFFERENTIAL STAT 025 1:40 PM HEARSE DRIVER TYPE AND SCREEN STAT 11/28/2024 1:40 PM HEARSE DRIVER URIC ACID STAT 11/28/2024 1:40 PM HEARSE DRIVER LACTATE DEHYDROGENASE STAT 11/28/2024 1:40 PM HEARSE DRIVER PHOSPHORUS STAT 11/28/2024 1:40 PM HEARSE DRIVER MAGNESIUM STAT 11/28/2024 1:40 PM HEARSE DRIVER COMPREHENSIVE METABOLIC PANEL STAT 1:40 PM HEARSE DRIVER BMT CBC STAT 11/28/2024 1:40 PM HEARSE DRIVER FIBRINOGEN STAT 11/28/2024 1:32 PM HEARSE DRIVER APTT STAT 11/28/2024 1:32 PM HEARSE DRIVER PROTIME-INR STAT 11/28/2024 1:32 PM HEARSE DRIVER POCT GLUCOSE DEVICE Routine 11/18/2024 11:20 AM HEARSE DRIVER POCT GLUCOSE DEVICE Routine 11/18/2024 7:30 AM HEARSE DRIVER POCT GLUCOSE DEVICE Routine 11/18/2024 4:25 AM HEARSE DRIVER EGFR Routine 11/18/2024 2:38 AM HEARSE DRIVER MANUAL DIFFERENTIAL Routine 11/18/2024 2:38 AM HEARSE DRIVER CBC WITHOUT DIFFERENTIAL Routine 2:38 AM HEARSE DRIVER BASIC METABOLIC PANEL Routine 11/18/2024 2:38 AM HEARSE DRIVER PHOSPHORUS Routine 11/18/2024 2:38 AM HEARSE DRIVER MAGNESIUM Routine 11/18/2024 2:38 AM HEARSE DRIVER BMT CBC Routine 11/18/2024 2:38 AM HEARSE DRIVER POCT GLUCOSE DEVICE Routine 11/18/2024 12:47 AM HEARSE DRIVER POCT GLUCOSE DEVICE Routine 11/17/2024 8:11 PM HEARSE DRIVER POCT GLUCOSE DEVICE Routine 11/17/2024 5:32 PM HEARSE DRIVER POCT GLUCOSE DEVICE Routine 11/17/2024 12:03 PM HEARSE DRIVER POCT GLUCOSE DEVICE Routine 11/17/2024 11:14 AM HEARSE DRIVER POCT GLUCOSE DEVICE Routine 11/17/2024 7:19 AM HEARSE DRIVER POCT GLUCOSE DEVICE Routine 11/17/2024 4:32 AM HEARSE DRIVER POCT GLUCOSE DEVICE Routine 11/17/2024 12:33 AM HEARSE DRIVER HEMOGLOBIN A1C Routine 11/17/2024 12:31 AM HEARSE DRIVER URIC ACID Routine 11/17/2024 12:31 AM HEARSE DRIVER EGFR Routine 11/17/2024 12:31 AM HEARSE DRIVER LACTATE DEHYDROGENASE Routine 11/17/2024 12:31 AM HEARSE DRIVER MANUAL DIFFERENTIAL Routine 11/17/2024 12:31 AM HEARSE DRIVER CBC WITHOUT DIFFERENTIAL Routine 024 12:31 AM HEARSE DRIVER BASIC METABOLIC PANEL Routine 11/17/2024 12:31 AM HEARSE DRIVER PHOSPHORUS Routine 11/17/2024 12:31 AM HEARSE DRIVER MAGNESIUM Routine 11/17/2024 12:31 AM HEARSE DRIVER BMT CBC Routine 11/17/2024 12:31 AM HEARSE DRIVER POCT GLUCOSE DEVICE Routine 11/16/2024 8:43 PM HEARSE DRIVER POCT GLUCOSE DEVICE Routine 11/16/2024 5:06 PM HEARSE DRIVER SURGICAL PATHOLOGY Routine 11/16/2024 4:53 PM HEARSE DRIVER Food impaction of esophagus, initial encounter ENDO ADD ON ESOPHAGOGASTRODUODENOSCOPY BIOPSY 11/16/2024 4:15 PM HEARSE DRIVER Food impaction of esophagus, initial encounter ESOPHAGOGASTRODUODENOSCOPY WITH REMOVAL FOREIGN BODY 11/16/2024 4:15 PM HEARSE DRIVER Food impaction of esophagus, initial encounter EGD 11/16/2024 4:05 PM HEARSE DRIVER POCT GLUCOSE DEVICE Routine 11/16/2024 3:54 PM HEARSE DRIVER POCT GLUCOSE DEVICE Routine 11/16/2024 11:[address] CHEST ABDOMEN W CONTRAST ED Urgent/IP Urgent 11/16/2024 10:32 AM HEARSE DRIVER POCT GLUCOSE DEVICE Routine 11/16/2024 7:57 AM HEARSE DRIVER POCT GLUCOSE DEVICE Routine 11/16/2024 3:55 AM HEARSE DRIVER EGFR Routine 11/16/2024 3:38 AM HEARSE DRIVER URIC ACID STAT 11/16/2024 3:38 AM HEARSE DRIVER LACTATE DEHYDROGENASE STAT 11/16/2024 3:38 AM HEARSE DRIVER PHOSPHORUS STAT 11/16/2024 3:38 AM HEARSE DRIVER MAGNESIUM STAT 11/16/2024 3:38 AM HEARSE DRIVER APTT Routine 11/16/2024 3:38 AM HEARSE DRIVER COMPREHENSIVE METABOLIC PANEL Routine 3:38 AM HEARSE DRIVER FIBRINOGEN STAT 11/16/2024 3:38 AM HEARSE DRIVER TYPE AND SCREEN STAT 11/16/2024 3:38 AM HEARSE DRIVER EGFR STAT 11/16/2024 12:13 AM HEARSE DRIVER DIFFERENTIAL AUTO STAT 11/16/2024 12:13 AM HEARSE DRIVER PROTIME-INR STAT 11/16/2024 12:13 AM HEARSE DRIVER BASIC METABOLIC PANEL STAT 11/16/2024 12:13 AM HEARSE DRIVER CBC WITH AUTO DIFFERENTIAL STAT 11/16 12:13 AM HEARSE DRIVER POCT GLUCOSE DEVICE Routine 11/16/2024 12:12 AM HEARSE DRIVER LIPID PANEL Add-On 07/14/2024 6:22 PM CDT ALBUMIN CREATININE RATIO, URINE STAT 02/28/2022 8:57 AM CDT Type 2 diabetes mellitus with hyperosmolarity without coma, with long-term current use of insulin (HCC) Vitamin D deficiency [id number] disease (HCC) Other osteoporosis without current pathological fracture Screening for thyroid disorder PSA SCREEN Routine Gen Lab 02/04/2017 8:36 AM CDT from Last 3 Months or Most Recently Relevant to Health Maintenance Results * POCT glucose (01/02/2025 5:11 PM HEARSE DRIVER) Glucose, POC 82 70 - 199 mg/dL Blood 01/02/2025 5:11 PM HEARSE DRIVER 01/02/2025 5:11 PM HEARSE DRIVER Eleni Junior MD LAB POCT ORDERABLES - DEVICE Final Result Performing Organization Address City/[facility]/ZIP Co de Phone Number [facility] Department [place] [employer] [place] [address] * POCT glucose (01/02/2025 4:18 PM HEARSE DRIVER) Glucose, POC 74 70 - 199 mg/dL Blood 01/02/2025 4:18 PM HEARSE DRIVER 01/02/2025 4:18 PM HEARSE DRIVER Eleni Junior MD LAB POCT ORDERABLES - DEVICE Final Result [facility] [place] [employer] [place] [address] * POCT glucose (01/02/2025 12:14 PM HEARSE DRIVER) Glucose, POC 100 70 - 199 mg/dL Blood 01/02/2025 12:1 4 PM HEARSE DRIVER 01/02/2025 12:14 PM HEARSE DRIVER Eleni Junior MD LAB POCT ORDERABLES - DEVICE Final Result Performing Organization Address City/[facility] Co de Phone Number [facility] [place] [employer] [place] [address] * POCT glucose (01/02/2025 8:05 AM HEARSE DRIVER) Glucose, POC 106 70 - 199 mg/dL Blood 01/02/2025 8:05 AM HEARSE DRIVER 01/02/2025 8:05 AM HEARSE DRIVER Eleni Junior MD LAB POCT ORDERABLES - DEVICE Final Result Performing Organization Address [facility] de Phone Number [facility] [place] [address] * eGFR (01/02/2025 1:50 AM HEARSE DRIVER) eGFR >90 >=60 mL/min/1. 73 m2 Comment: Interpretive Data Reference Interval Normal >/= 90 mL/min/1.73m2 Mildly decreased* 60 - 89 mL/min/1.73m2 Mildly to moderately decreased 45 - 59 mL/min/1.73m2 Moderately to severely decreased 30 - 44 mL/min/1.73m2 Severely decreased 15 - 29 mL/min/1.73m2 Kidney Failure < 15 mL/min/1.73m2 *Relative to young adult level Estimated glomerular [...] interpretive data was last reviewed 2021. Blood 01/02/2025 1:50 AM HEARSE DRIVER 01/02/2025 2:14 AM HEARSE DRIVER us Jared Davis MD LAB BLOOD ORDERABLES Final R esult [facility] Department [place] [address] * (ABNORMAL) Manual Differential (01/02/2025 1:50 AM HEARSE DRIVER) Differential Manual Cells Counted [facility] Neutrophil abs 2.8 1.5 - 6.5 K/cumm [facility] Imm gran abs 0.0 0.0 - 0.1 K/cumm [facility] Lymphocyte abs 3.2 0.8 - 3.3 K/cumm [facility] Monocyte abs 0.5 0.2 - 0.8 K/cumm [facility] Eosinophil abs 0.1 0.0 - 0.5 K/cumm [facility] Basophil abs 0.4(H) 0.0 - 0.1 K/cumm [facility] Neutrophil pct 40.5 % [facility] Comment: Interpretive Data Percent cell count reference ranges are not reported, since discordance with absolute values may lead to misinterpretation of CBC data. Current Interpretive Data was last revised on 2018. Lymphocyte pct 47.1 % [facility] Comment: Interpretive Data Percent cell count reference ranges are not reported, since discordance with absolute values may lead to misinterpretation of CBC data. Current Interpretive Data was last revised on 2018. Monocyte pct 6.6 % [facility] Comment: Interpretive Data Percent cell count reference ranges are not reported, since discordance with absolute values may lead to misinterpretation of CBC data. Current Interpretive Data was last revised on 2018. Eosinophil pct 0.8 % [facility] Comment: Interpretive Data Percent cell count reference ranges are not reported, since discordance with absolute values may lead to misinterpretation of CBC data. Current Interpretive Data was last revised on 2018. Basophil pct 5.0 % [facility] Comment: Interpretive Data Percent cell count reference ranges are not reported, since discordance with absolute values may lead to misinterpretation of CBC data. Current Interpretive Data was last revised on 2018. RBC morphology Present(A) [facility] Anisocytosis Moderate(A) [facility] Macrocytes 8-15/HPF(A) [facility] Platelet estimate Adequate [facility] Blood 01/02/2025 1:50 AM HEARSE DRIVER 01/02/2025 2:14 AM HEARSE DRIVER us Jared Davis MD LAB BLOOD ORDERABLES Edited Result - Final Performing Organization Address City/[facility]/ZIP Co de Phone Number [facility] Department [place] [address] * (ABNORMAL) Reticulocyte Count (01/02/2025 1:50 AM HEARSE DRIVER) [facility] Retics, absolute 0.135(H) 0.020 - 0.087 M/cumm Retics 4.2(H) 0.4 - 2.9 % [facility] Reticulocyte Hgb 38.1(H) 30.5 - 38.0 pg [facility] Blood 01/02/2025 1:50 AM HEARSE DRIVER 01/02/2025 2:21 AM HEARSE DRIVER us Eleni Junior MD LAB BLOOD ORDERABLES Final Re sult Performing Organization Address [facility] Co de Phone Number [facility] Department [place] [address] * (ABNORMAL) CBC without differential (01/02/2025 1:50 AM HEARSE DRIVER) WBC 6.9 3.8 - 9.9 K/cumm Hgb 10.7(L) 13.0 - 17.5 g/dL [facility] Hct 32.5(L) 38.9 - 50.3 % [facility] Plt 312 150 - 400 K/cumm [facility] MPV 10.8 9.1 - 12.3 fL [facility] RBC 3.25(L) 4.30 - 5.80 M/cumm [facility] MCV 100.0(H) 81.3 - 96.4 fL [facility] MCH 32.9 27.1 - 33.3 pg [facility] MCHC 32.9 32.3 - 35.7 g/dL [facility] RDW CV 18.2(H) 11.1 - 14.9 % [facility] RDW SD 66.1(H) 35.7 - 48.1 fL [facility] NRBC abs 0.02(H) 0.00 - 0.01 K/cumm [facility] Blood 01/02/2025 1:50 AM HEARSE DRIVER 01/02/2025 2:14 AM HEARSE DRIVER us Jared Davis MD LAB BLOOD ORDERABLES Final R esult Performing Organization Address City/[facility] Co de Phone Number [facility] [place] [employer] [place] [address] * Phosphorus (01/02/2025 1:50 AM HEARSE DRIVER) Phosphorus, pl 2.9 2.3 - 4.5 mg/dL Blood 01/02/2025 1:50 AM HEARSE DRIVER 01/02/2025 2:14 AM HEARSE DRIVER Jared Davis MD LAB BLOOD ORDERABLES Final R esult Performing Organization Address [facility] Co de Phone Number [facility] [place] [employer] [place] [address] * Magnesium (01/02/2025 1:50 AM HEARSE DRIVER) Magnesium 1.4 1.4 - 2.5 mg/dL Blood 01/02/2025 1:50 AM HEARSE DRIVER 01/02/2025 2:14 AM HEARSE DRIVER us Jared Davis MD LAB BLOOD ORDERABLES Final R esult Performing Organization Address City/[facility]/ZIP Co de Phone Number [facility] [place] [address] * Folate (01/02/2025 1:50 AM HEARSE DRIVER) Pathologist [facility] Folic acid 10.5 >=5.0 ng/mL Blood 01/02/2025 1:50 AM HEARSE DRIVER 01/02/2025 2:14 AM HEARSE DRIVER Result [facility] Eleni Junior MD LAB BLOOD ORDERABLES Final Re sult Performing Organization Address [facility] Co de Phone Number [facility] Department [place] [address] * Vitamin B12 (01/02/2025 1:50 AM HEARSE DRIVER) [facility] Vitamin B12 785 230 - 1,250 pg/mL Blood 01/02/2025 1:50 AM HEARSE DRIVER 01/02/2025 2:14 AM HEARSE DRIVER Result [facility] Eleni Junior MD LAB BLOOD ORDERABLES Final Re sult Performing Organization Address [facility] de Phone Number [facility] [place] [place] [address] * (ABNORMAL) Hepatic function panel (01/02/2025 1:50 AM HEARSE DRIVER) [facility] Bilirubin, total 0.3 0.1 - 1.2 mg/dL Bilirubin, direct <0.2 0.1 - 0.3 mg/dL [facility] Protein, pl 6.8 6.5 - 8.5 g/dL [facility] Albumin 3.0(L) 3.5 - 5.0 g/dL [facility] Alk phos 166(H) 40 - 130 Units/L [facility] ALT 51 7 - 55 Units/L [facility] AST 43 10 - 50 Units/L [facility] Blood 01/02/2025 1:50 AM HEARSE DRIVER 01/02/2025 2:14 AM HEARSE DRIVER Result [facility] Kay La MD LAB BLOOD ORDERABLES Pilar l Result Performing Organization Address [facility]/ZIP Co de Phone Number [facility] Department [place] [address] * (ABNORMAL) Basic metabolic panel (01/02/2025 1:50 AM HEARSE DRIVER) Pathologist [facility] Sodium 138 135 - 145 mmol/L Potassium, pl 4.3 3.3 - 4.9 mmol/L [facility] Chloride 103 97 - 110 mmol/L [facility] CO2 30 22 - 32 mmol/L [facility] Anion gap 5 2 - 15 mmol/L [facility] BUN 8 6 - 25 mg/dL [facility] Creatinine 0.71(L) 0.80 - 1.30 mg/dL [facility] Glucose 107 70 - 199 mg/dL [facility] Comment: Interpretive Data Fasting glucose >/= 126 mg/dl is diagnostic for diabetes. Fasting is defined as no caloric intake [...] 2022. Calcium 8.5 8.5 - 10.3 mg/dL [facility] Blood 01/02/2025 1:50 AM HEARSE DRIVER 01/02/2025 2:14 AM HEARSE DRIVER Narrative [facility] - 01/02/2025 2:43 AM HEARSE DRIVER Daily except Saturday and . Morning draw. Jared Davis MD LAB BLOOD ORDERABLES Final R esult Performing Organization Address City/[facility]/ZIP Co de Phone Number [facility] Department [place] [address] * POCT glucose (01/01/2025 7:31 PM HEARSE DRIVER) Glucose, POC 100 70 - 199 mg/dL Blood 01/01/2025 7:31 PM HEARSE DRIVER 01/01/2025 7:31 PM HEARSE DRIVER Brody Park MD LAB POCT ORDERABLES - DEVICE Final Result Performing Organization Address [facility] Co de Phone Number [facility] Department [place] [address] * Tacrolimus level trough (01/01/2025 7:29 PM HEARSE DRIVER) Tacrolimus trough <1.0 ng/mL Comment: Undetectable. Please verify that the correct immunosuppressant test was requested. Interpretive Data Testing performed by liquid chromatography-tandem mass spectrometry. Therapeutic concentrations vary depending on type of transplanted organ and time elapsed since transplant. Typical trough concentrations range from 5-15 ng/mL. This test was developed and its performance characteristics determined by the [facility] consistent with CLIA requirements. This test has not been cleared or approved by the [place] Food and Drug administration. Current interpretive data last reviewed 2020. Blood 01/01/2025 7:29 PM HEARSE DRIVER 01/01/2025 7:43 PM HEARSE DRIVER Lalo Perez MD LAB BLOOD ORDERABLES Final Resu lt Performing Organization Address [facility] Co de Phone Number [facility] [place] [address] * POCT glucose (01/01/2025 5:58 PM HEARSE DRIVER) Glucose, POC 122 70 - 199 mg/dL Blood 01/01/2025 5:58 PM HEARSE DRIVER 01/01/2025 5:58 PM HEARSE DRIVER Brody Park MD LAB POCT ORDERABLES - DEVICE Final Result Performing Organization Address [facility] Co de Phone Number [facility] Department [place] [address] * POCT glucose (01/01/2025 11:59 AM HEARSE DRIVER) Glucose, POC 71 70 - 199 mg/dL Blood 01/01/2025 11:5 9 AM HEARSE DRIVER 01/01/2025 11:59 AM HEARSE DRIVER Brody Park MD LAB POCT ORDERABLES - DEVICE Final Result Performing Organization Address City/State/[facility] Co de Phone Number [facility] [place] [address] * Surgical pathology (01/01/2025 8:31 AM HEARSE DRIVER) Tissue (Esophageal biopsy) 01/01/2025 8:31 AM HEARSE DRIVER Comment:Stain for MAC (mycob acteria) Tissue (Esophageal biopsy) 01/01/2025 8:34 AM HEARSE DRIVER Comment:Stain for MAC (mycob acteria) Narrative PATHOLOGY [facility] - 01/06/2025 9:25 AM HEARSE DRIVER EPIC results best viewed via link to PDF [facility] [facility] [place] [address] Note to Patients: This report may contain [...] details. SURGICAL PATHOLOGY REPORT FINAL Patient Name: BRI JONES Gender: M : 1965 (Age: 59) Address: [address] [place] [address] Hospital #: [id number] Taken:01/01/2025 Received:01/01/2025 Reported: 01/06/2025 Patient Type: [facility] Inpatient Service: BoneMarTranspl Location: [facility] [address] Physician(s): Gretta Stovall M.D. Kirt Lindsay, Diagnosis: A. Esophagus, distal nodular mucosa, biopsy - Squamocolumnar mucosa with extensive ulceration, acute inflammation, and granulation tissue - No stainable fungal organisms (GMS stain negative) - Negative for CMV (negative immunostain) - Negative for intestinal metaplasia, dysplasia, or malignancy B. Esophagus, distal ulcerated mucosa, biopsy - Extensive acute inflammation, necrosis, and granulation tissue, consistent with ulceration - No stainable fungal organisms (GMS stain negative) - Negative for CMV or HSV (negative immunostains) - Negative for intestinal metaplasia, dysplasia, or malignancy jaro/01/03/2025 13:12 By this signature, I attest that the above diagnosis is based upon my personal examination of the slides(and/or other material indicated in the diagnosis). Erick Peña M.D. Report Electronically Reviewed and Signed Out By Erick Peña M.D. 01/06/2025 09:25:20 Diagnosis Comment Findings are non-specific, but could represent severe reflux-associated esophagitis. There is no evidence of malignancy or infectious etiology. Microscopic Description and Comment: Immunohistochemical stains and special stains (with appropriate control) were performed on parts A and B. In part A, CMV stain is negative and GMS shows no evidence of micro-organisms. In part B, CMV, HSV1, HSV2 stains are negative and GMS stains show no evidence of stainable micro-organisms. Zohaib López M.D. History: The patient is a 59-year-old man presenting for esophageal dysphagia. Operative procedure: Upper endoscopy biopsy. Specimen(s) Received: A: Cold biopsy nodular mucosa distal esophagus B: Cold biopsy ulcerated distal esophagus Gross Description: Received in two formalin jars labeled with the patient's identifiers. A. Labeled cold biopsy nodular mucosa distal esophagus and consists of multiple freed-pink fragment(s) of soft tissue with an aggregate measurement of 0.8 x 0.7 x 0.1 cm. Labeled A1. Jar 0. B. Labeled cold biopsy ulcerated distal esophagus and consists of multiple freed- pink fragment(s) of soft tissue with an aggregate measurement of 0.9 x 0.7 x 0.1 cm. Labeled B1. Jar 0. elsw/01/01/2025 10:45 PA(s): Anaid Laura By this signature, I attest that the above diagnosis is based upon my personal examination of the slides(and/or other material). Addenda/Procedures The performance characteristics of some immunohistochemical stains, fluorescence in-situ hybridization tests and immunophenotyping by flow cytometry cited in this report (if any) were determined by the Surgical Pathology and Flow Cytometry Departments at [facility] as part of an ongoing quality project manager program and in compliance with federally mandated regulations drawn from the Clinical Laboratory Improvement Act of 1988 (CLIA '88). Some of these tests rely on the use of analyte specific reagents and are subject to specific labeling requirements by the US Food and Drug Administration. Such diagnostic tests may only be performed in a facility that is certified by the Department of Health and Human Services as a high complexity laboratory under CLIA '88. The FDA has determined that such clearance or approval is not necessary. This test is used for clinical purposes. It should not be regarded as investigational or for research. Nevertheless, federal rules concerning the medical use of analyte specific reagents require that the following disclaimer be attached to the report: This test was developed and its performance characteristics determined by the Surgical Pathology and Flow Cytometry Departments of [facility]. It has not been cleared or approved by the U. S. Food and Drug Administration. IMAGES AND SCANNED DOCUMENTS, IF INCLUDED, ONLY VIEWABLE IN PDF VERSION OF REPORT Gretta Stovall MD LAB PATHOLOGY ORDERABLES Final Result PATHOLOGY [facility] 3rd Floor [place], [place] [phone] * EGD (01/01/2025 8:26 AM HEARSE DRIVER) Anatomical Region Laterality Modality Other Narrative Procedure Note Gretta Stovall MD - 01/01/2025 8:26 AM CST [facility] Patient Name: Bri Jones Procedure Date: 01/01/2025 8:26 AM Date of : 1965 Admit Type: Inpatient Age: 59 Gender: Male Attending MD: Gretta Stovall M.D. Room: [facility] ENDOSCOPY Note Status: Finalized Procedure: Upper GI endoscopy Indications: Dysphagia, Odynophagia, Follow-up of esophagitis Referring MD: Fer Elliott M.D. Providers: Gretta Stovall M.D., Bony Todd M.D. Medicines: Monitored Anesthesia Care Complications: No immediate complications. Estimated Blood Loss: Estimated blood loss was minimal. Procedure: Pre-Anesthesia Assessment: - Immediately prior to administration ofmedications, the patient was re-assessed for adequacy to receive sedatives. The benefits, risks, and alternatives to theprocedure and sedation were discussed and informed consentwas obtained. The scope was passed under direct vision. The GIF [id number] endoscope was introduced through the mouth, and advanced to the second partof duodenum. The upper GI endoscopy was accomplished without difficulty. The patient tolerated the procedure well. Findings: Esophagogastric landmarks were identified: the Z-line was found at 42 cm, the gastroesophageal junction was found at 42 cm and the site of hiatal narrowing was found at 44 cm from the incisors. Many linear, superficial esophageal ulcers with no stigmata of recent bleeding were found 28 to 42 cm from the incisors which were moresevere distally. There was spontaneous oozing (minor) of blood distally from the ulcerated mucosa. Biopsies were taken with a cold forceps for histology with request for stains for MAC. Estimated blood loss was minimal. One benign-appearing, intrinsic mild stenosis was found 42 cm fromthe incisors. The stenosis was traversed. A TTS dilator was passedthrough the scope. Dilation with a 15-16.5-18 mm balloon dilator wasperformed to 18 mm. The dilation site was examined and showed mild mucosal disruption. Estimated blood loss was minimal. Overall dysphagia ismore likely due to inflammation that structural narrowing. Localized moderate mucosal changes characterized by nodularity were found in the lower third of the esophagus/cardia. Biopsies were taken with a cold forceps for histology. Estimated blood loss wasminimal. A 2 cm hiatal hernia was present. Bilious fluid was found in the gastric body with residual staining of the mucosa. The mucosa seen was normal. The exam of the stomach was otherwise normal. The examined duodenum was normal. The gastroesophageal flap valve was visualized endoscopically and classified as Hill Grade III (minimal fold, loose to endoscope,hiatal hernia likely). No other findings on retroflexion Impression: - Esophageal ulcers with no stigmata of recent bleeding. Biopsied. - Benign-appearing esophageal stenosis. Dilated to18 mm. - Nodular mucosa in the esophagus/cardia.Biopsied. - 2 cm hiatal hernia. - Bilious gastric fluid. - Normal examined duodenum. Recommendation: - Patient has a contact number available for emergencies. The signs and symptoms of potential delayed complications were discussed with thepatient. Return to normal activities tomorrow. Written discharge instructions were provided to thepatient. - Mechanical soft diet (especially until hasdentures). - Continue present medications. - Await pathology results. - Repeat upper endoscopy in 2 months to checkhealing. - Return [facility]. Attending Participation: I was present and participated during the entire procedure, including non-feliz portions. Electronically signed by Gretta Stovall MD Gretta Stovall M.D. 01/01/2025 9:08:09 AM Number of Addenda: 0 Note Initiated On: 01/01/2025 8:26 AM us Gretta Stovall MD ENDOSCOPY PROCEDURES Pilar l Result * POCT glucose (01/01/2025 8:14 AM HEARSE DRIVER) Glucose, POC 77 70 - 199 mg/dL Blood 01/01/2025 8:14 AM HEARSE DRIVER 01/01/2025 8:14 AM HEARSE DRIVER Brody Park MD LAB POCT ORDERABLES - DEVICE Final Result Performing Organization Address [facility] de Phone Number [facility] Department [place] [employer] [place] [address] * eGFR (01/01/2025 2:18 AM HEARSE DRIVER) eGFR >90 >=60 mL/min/1. 73 m2 Comment: Interpretive Data Reference Interval Normal >/= 90 mL/min/1.73m2 Mildly decreased* 60 - 89 mL/min/1.73m2 Mildly to moderately decreased 45 - 59 mL/min/1.73m2 Moderately to severely decreased 30 - 44 mL/min/1.73m2 Severely decreased 15 - 29 mL/min/1.73m2 Kidney Failure < 15 mL/min/1.73m2 *Relative to young adult level Estimated glomerular [...] interpretive data was last reviewed 2021. Blood 01/01/2025 2:18 AM HEARSE DRIVER 01/01/2025 2:27 AM HEARSE DRIVER Jared Davis MD LAB BLOOD ORDERABLES Final R esult Performing Organization Address [facility] Co de Phone Number [facility] Department [place] [address] * (ABNORMAL) Manual Differential (01/01/2025 2:18 AM HEARSE DRIVER) Differential Manual Cells Counted 117 [facility] Neutrophil abs 2.4 1.5 - 6.5 K/cumm [facility] Imm gran abs 0.0 0.0 - 0.1 K/cumm [facility] Lymphocyte abs 2.2 0.8 - 3.3 K/cumm [facility] Monocyte abs 1.0(H) 0.2 - 0.8 K/cumm [facility] Eosinophil abs 0.2 0.0 - 0.5 K/cumm [facility] Basophil abs 0.0 0.0 - 0.1 K/cumm [facility] Neutrophil pct 40.1 % [facility] Comment: Interpretive Data Percent cell count reference ranges are not reported, since discordance with absolute values may lead to misinterpretation of CBC data. Current Interpretive Data was last revised on 2018. Lymphocyte pct 37.6 % [facility] Comment: Interpretive Data Percent cell count reference ranges are not reported, since discordance with absolute values may lead to misinterpretation of CBC data. Current Interpretive Data was last revised on 2018. Monocyte pct 17.1 % [facility] Comment: Interpretive Data Percent cell count reference ranges are not reported, since discordance with absolute values may lead to misinterpretation of CBC data. Current Interpretive Data was last revised on 2018. Eosinophil pct 4.3 % [facility] Comment: [...] RBC morphology Present(A) [facility] Anisocytosis Marked(A) [facility] Macrocytes 8-15/HPF(A) [facility] Platelet estimate Adequate [facility] Blood 01/01/2025 2:18 AM HEARSE DRIVER 01/01/2025 2:28 AM HEARSE DRIVER Jared Davis MD LAB BLOOD ORDERABLES Edited Result - Final [facility] [place] [address] * (ABNORMAL) CBC without differential (01/01/2025 2:18 AM HEARSE DRIVER) Pathologist [facility] WBC 5.9 3.8 - 9.9 K/cumm Hgb 10.6(L) 13.0 - 17.5 g/dL [facility] Hct 32.3(L) 38.9 - 50.3 % [facility] Plt 274 150 - 400 K/cumm [facility] MPV 10.7 9.1 - 12.3 fL [facility] RBC 3.25(L) 4.30 - 5.80 M/cumm [facility] MCV 99.4(H) 81.3 - 96.4 fL [facility] MCH 32.6 27.1 - 33.3 pg [facility] MCHC 32.8 32.3 - 35.7 g/dL [facility] RDW CV 18.0(H) 11.1 - 14.9 % [facility] RDW SD 65.3(H) 35.7 - 48.1 fL [facility] NRBC abs 0.02(H) 0.00 - 0.01 K/cumm [facility] Blood 01/01/2025 2:18 AM HEARSE DRIVER 01/01/2025 2:28 AM HEARSE DRIVER Jared Davis MD LAB BLOOD ORDERABLES Final R esult [facility] [place] [address] * Phosphorus (01/01/2025 2:18 AM HEARSE DRIVER) Pathologist [facility] Phosphorus, pl 2.7 2.3 - 4.5 mg/dL Blood 01/01/2025 2:18 AM HEARSE DRIVER 01/01/2025 2:27 AM HEARSE DRIVER Jared Davis MD LAB BLOOD ORDERABLES Final R esult Performing Organization Address City/[facility]/ZIP Co de Phone Number [facility] Department [place] [address] * Magnesium (01/01/2025 2:18 AM HEARSE DRIVER) Pathologist [facility] Magnesium 1.7 1.4 - 2.5 mg/dL Blood 01/01/2025 2:18 AM HEARSE DRIVER 01/01/2025 2:27 AM HEARSE DRIVER Jared Davis MD LAB BLOOD ORDERABLES Final R esult Performing Organization Address [facility] Co de Phone Number [facility] [place] [address] * (ABNORMAL) Hepatic function panel (01/01/2025 2:18 AM HEARSE DRIVER) Bilirubin, total 0.3 0.1 - 1.2 mg/dL Bilirubin, direct <0.2 0.1 - 0.3 mg/dL [facility] Protein, pl 6.6 6.5 - 8.5 g/dL [facility] Albumin 2.7(L) 3.5 - 5.0 g/dL [facility] Alk phos 164(H) 40 - 130 Units/L [facility] ALT 58(H) 7 - 55 Units/L [facility] AST 49 10 - 50 Units/L [facility] Blood 01/01/2025 2:18 AM HEARSE DRIVER 01/01/2025 2:27 AM HEARSE DRIVER Kay La MD LAB BLOOD ORDERABLES Pilar l Result Performing Organization Address City/[facility]/ZIP Co de Phone Number [facility] Department [place] [address] * (ABNORMAL) Basic metabolic panel (01/01/2025 2:18 AM HEARSE DRIVER) Sodium 136 135 - 145 mmol/L Potassium, pl 4.2 3.3 - 4.9 mmol/L [facility] Chloride 102 97 - 110 mmol/L [facility] CO2 29 22 - 32 mmol/L [facility] Anion gap 5 2 - 15 mmol/L [facility] BUN 12 6 - 25 mg/dL [facility] Creatinine 0.70(L) 0.80 - 1.30 mg/dL [facility] Glucose 165 70 - 199 mg/dL [facility] Comment: Interpretive Data Fasting glucose >/= 126 mg/dl is diagnostic for diabetes. Fasting is defined as no caloric intake [...] 2022. Calcium 8.6 8.5 - 10.3 mg/dL [facility] Blood 01/01/2025 2:18 AM HEARSE DRIVER 01/01/2025 2:27 AM HEARSE DRIVER Narrative [facility] - 01/01/2025 3:35 AM HEARSE DRIVER Daily except Saturday and . Morning draw. Jared Davis MD LAB BLOOD ORDERABLES Final R esult [facility] Department [place] [address] * POCT glucose (12/31/2024 7:31 PM HEARSE DRIVER) Glucose, POC 115 70 - 199 mg/dL Blood 12/31/2024 7:31 PM HEARSE DRIVER 12/31/2024 7:31 PM HEARSE DRIVER Brody Park MD LAB POCT ORDERABLES - DEVICE Final Result Performing Organization Address [facility] de Phone Number [facility] [place] [address] * POCT glucose (12/31/2024 3:31 PM HEARSE DRIVER) Glucose, POC 78 70 - 199 mg/dL Blood 12/31/2024 3:31 PM HEARSE DRIVER 12/31/2024 3:31 PM HEARSE DRIVER us Brody Park MD LAB POCT ORDERABLES - DEVICE Final Result Performing Organization Address [facility] de Phone Number [facility] [place] [address] * POCT glucose (12/31/2024 11:16 AM HEARSE DRIVER) Glucose, POC 90 70 - 199 mg/dL Blood 12/31/2024 11:1 6 AM HEARSE DRIVER 12/31/2024 11:16 AM HEARSE DRIVER us Brody Park MD LAB POCT ORDERABLES - DEVICE Final Result Performing Organization Address [facility] de Phone Number [facility] [place] [address] * Troponin I high-sensitivity (12/31/2024 8:28 AM HEARSE DRIVER) Trop I hs 7 <=35 ng/L Comment: Interpretive Data For further hscTnI resources including the diagnostic algorithm and an aid in interpretation, copy and paste this link: https://bjhlab.testcatalog.org/show/[email or web address] Current Interpretive Data last revised 2020. Blood 12/31/2024 8:28 AM HEARSE DRIVER 12/31/2024 8:38 AM HEARSE DRIVER us Lalo Perez MD LAB BLOOD ORDERABLES Final Resu lt Performing Organization Address [facility]/State/ZIP Co de Phone Number [facility] Department [place] [address] * POCT glucose (12/31/2024 8:26 AM HEARSE DRIVER) [facility] Glucose, POC 86 70 - 199 mg/dL Blood 12/31/2024 8:26 AM HEARSE DRIVER 12/31/2024 8:26 AM HEARSE DRIVER Brody Park MD LAB POCT ORDERABLES - DEVICE Final Result Performing Organization Address [facility] de Phone Number [facility] [place] [address] * ECG 12 lead (12/31/2024 5:14 AM HEARSE DRIVER) [facility] Ventricular Rate EKG/Min 143 BPM [facility] Atrial Rate 133 BPM [facility] QRS-Interval (MSEC) 96 ms [facility] QT-Interval (MSEC) 324 ms [facility] QTc 500 ms [facility] R Bagley 116 degrees [facility] T Bagley 47 degrees [facility] Diagnosis Supraventricular tachycardia Low voltage QRS Left posterior fascicular block Cannot rule out Anterior infarct Abnormal ECG When compared with ECG of 12/18/2024 SVT is present Confirmed by SOHAM WINTERS M.D ([id number]) on 01/01/2025 10:04:29 AM [facility] 12/31/2024 5:14 AM HEARSE DRIVER 01/01/2025 10:04 AM HEARSE DRIVER us Jared Davis MD ECG ORDERABLES Final Result Performing Organization Address [facility] Co de Phone Number [facility] * Sepsis Lactate w/ Reflex (12/31/2024 2:22 AM HEARSE DRIVER) [facility] Sepsis Lactate 1.2 0.7 - 2.0 mmol/L Blood 12/31/2024 2:22 AM HEARSE DRIVER 12/31/2024 2:37 AM HEARSE DRIVER Narrative [facility] - 12/31/2024 2:38 AM HEARSE DRIVER Obtain Lactate w/ reflex STAT. Lactate result greater than 2 mmol/L is abnormal. Call provider immediately upon receiving abnormal lactate result. If results are abnormal, Bridge will automatically activate two additional lactate levels. One to be drawn 3 hrs after the initial lactate level was drawn. If the second sample is > 2.0, a rule will fire to order an additional Lactate timed 3 hours from the second order's collection time. Jared Davis MD LAB BLOOD ORDERABLES Final R esult Performing Organization Address City/[facility]/ZIP Co de Phone Number [facility] [place] [employer] [place] [address] * eGFR (12/31/2024 2:22 AM HEARSE DRIVER) eGFR >90 >=60 mL/min/1. 73 m2 Comment: Interpretive Data Reference Interval Normal >/= 90 mL/min/1.73m2 Mildly decreased* 60 - 89 mL/min/1.73m2 Mildly to moderately decreased 45 - 59 mL/min/1.73m2 Moderately to severely decreased 30 - 44 mL/min/1.73m2 Severely decreased 15 - 29 mL/min/1.73m2 Kidney Failure < 15 mL/min/1.73m2 *Relative to young adult level Estimated glomerular [...] interpretive data was last reviewed 2021. Blood 12/31/2024 2:22 AM HEARSE DRIVER 12/31/2024 2:47 AM HEARSE DRIVER us Jared Davis MD LAB BLOOD ORDERABLES Final R esult Performing Organization Address [facility]/ZIP Co de Phone Number [facility] [place] [employer] [place] [address] * (ABNORMAL) Manual Differential (12/31/2024 2:22 AM HEARSE DRIVER) Differential Manual Cells Counted 115 [facility] Neutrophil abs 2.8 1.5 - 6.5 K/cumm [facility] Imm gran abs 0.1 0.0 - 0.1 K/cumm [facility] Lymphocyte abs 3.8(H) 0.8 - 3.3 K/cumm [facility] Monocyte abs 0.6 0.2 - 0.8 K/cumm [facility] Eosinophil abs 0.5 0.0 - 0.5 K/cumm [facility] Basophil abs 0.1 0.0 - 0.1 K/cumm [facility] Neutrophil pct 35.7 % [facility] Comment: Interpretive Data Percent cell count reference ranges are not reported, since discordance with absolute values may lead to misinterpretation of CBC data. Current Interpretive Data was last revised on 2018. Lymphocyte pct 48.6 % [facility] Comment: Interpretive Data Percent cell count reference ranges are not reported, since discordance with absolute values may lead to misinterpretation of CBC data. Current Interpretive Data was last revised on 2018. Monocyte pct 7.8 % [facility] Comment: Interpretive Data Percent cell count reference ranges are not reported, since discordance with absolute values may lead to misinterpretation of CBC data. Current Interpretive Data was last revised on 2018. Eosinophil pct 6.1 % [facility] Comment: [...] RBC morphology Present(A) [facility] Anisocytosis Marked(A) [facility] Macrocytes > 15/HPF(A) [facility] Platelet estimate Adequate [facility] Blood 12/31/2024 2:22 AM HEARSE DRIVER 12/31/2024 2:37 AM HEARSE DRIVER us Jared Davis MD LAB BLOOD ORDERABLES Final R esult Performing Organization Address [facility] Co de Phone Number [facility] [place] [address] * Protime-INR (12/31/2024 2:22 AM HEARSE DRIVER) [facility] PT 12.2 9.7 - 13.0 sec INR 1.13 0.90 - 1.20 [facility] Comment: Interpretive data Oral anticoagulant therapeutic ranges: Venous thromboembolism prophylaxis or treatment: 2.0-3.0 CARDIOLOGY Standard range: 2.0-3.0 High-intensity range: 2.5-3.5 Refer to indication-specific guidelines for appropriate target ranges for prosthetic heart valve replacement. Current interpretive data was last revised on 2019. Blood 12/31/2024 2:22 AM HEARSE DRIVER 12/31/2024 2:42 AM HEARSE DRIVER us Kalin La MD LAB BLOOD ORDERABLES Final Result Performing Organization Address [facility] de Phone Number [facility] Department [place] [address] * (ABNORMAL) CBC without differential (12/31/2024 2:22 AM HEARSE DRIVER) [facility] WBC 7.8 3.8 - 9.9 K/cumm Hgb 10.8(L) 13.0 - 17.5 g/dL [facility] Hct 32.8(L) 38.9 - 50.3 % [facility] Plt 270 150 - 400 K/cumm [facility] MPV 11.0 9.1 - 12.3 fL [facility] RBC 3.35(L) 4.30 - 5.80 M/cumm [facility] MCV 97.9(H) 81.3 - 96.4 fL [facility] MCH 32.2 27.1 - 33.3 pg [facility] MCHC 32.9 32.3 - 35.7 g/dL [facility] RDW CV 17.7(H) 11.1 - 14.9 % [facility] RDW SD 61.9(H) 35.7 - 48.1 fL [facility] NRBC abs 0.00 0.00 - 0.01 K/cumm [facility] Blood 12/31/2024 2:22 AM HEARSE DRIVER 12/31/2024 2:37 AM HEARSE DRIVER Jared Davis MD LAB BLOOD ORDERABLES Final R esult Performing Organization Address [facility]/ZIP Co de Phone Number [facility] [place] [employer] [place] [address] * Type and screen (12/31/2024 2:22 AM HEARSE DRIVER) ABO Rh A Positive Ursula, indirect Negative [facility] Blood 12/31/2024 2:22 AM HEARSE DRIVER 12/31/2024 2:54 AM HEARSE DRIVER Narrative [facility] - 12/31/2024 3:55 AM HEARSE DRIVER Has the patient had Daratumumab or Isatuximab in the past 6 months?->Unknown Jared Davis MD LAB BLOOD BANK TEST ORDERABL ES Final Result Performing Organization Address [facility] Co de Phone Number [facility] [place] [place] [address] * Uric acid (12/31/2024 2:22 AM HEARSE DRIVER) Uric acid 4.1 3.0 - 8.0 mg/dL Blood 12/31/2024 2:22 AM HEARSE DRIVER 12/31/2024 2:39 AM HEARSE DRIVER Narrative [facility] - 12/31/2024 3:23 AM HEARSE DRIVER Saturday and only. Morning draw. . Jared Davis MD LAB BLOOD ORDERABLES Final R esult Performing Organization Address City/[facility] Co de Phone Number [facility] [place] [address] * TSH (12/31/2024 2:22 AM HEARSE DRIVER) Thyroid Stimulating Hormone 0.91 0.30 - 4.20 mcIUnit/mL Blood 12/31/2024 2:22 AM HEARSE DRIVER 12/31/2024 2:39 AM HEARSE DRIVER us Brody Park MD LAB BLOOD ORDERABLES Final R esult Performing Organization Address [facility] Co de Phone Number [facility] [place] [address] * Phosphorus (12/31/2024 2:22 AM HEARSE DRIVER) Phosphorus, pl 3.1 2.3 - 4.5 mg/dL Blood 12/31/2024 2:22 AM HEARSE DRIVER 12/31/2024 2:39 AM HEARSE DRIVER Jared Davis MD LAB BLOOD ORDERABLES Final R esult Performing Organization Address [facility] Co de Phone Number [facility] [place] [address] * Magnesium (12/31/2024 2:22 AM HEARSE DRIVER) Magnesium 1.7 1.4 - 2.5 mg/dL Blood 12/31/2024 2:22 AM HEARSE DRIVER 12/31/2024 2:39 AM HEARSE DRIVER Jared Davis MD LAB BLOOD ORDERABLES Final R esult Performing Organization Address City/[facility] Co de Phone Number [facility] Department [place] [address] * Lactate dehydrogenase (LD) (12/31/2024 2:22 AM HEARSE DRIVER) [facility] Lactate dehydrogenase (LDH) 199 100 - 250 Units/L Blood 12/31/2024 2:22 AM HEARSE DRIVER 12/31/2024 2:39 AM HEARSE DRIVER Narrative [facility] - 12/31/2024 3:23 AM HEARSE DRIVER Saturday and only. Morning draw. Jared Davis MD LAB BLOOD ORDERABLES Final R esult Performing Organization Address City/[facility] Co de Phone Number [facility] Department [place] [address] * Bilirubin, direct (12/31/2024 2:22 AM HEARSE DRIVER) [facility] Bilirubin, direct <0.2 0.1 - 0.3 mg/dL Blood 12/31/2024 2:22 AM HEARSE DRIVER 12/31/2024 2:39 AM HEARSE DRIVER Jared Davis MD LAB BLOOD ORDERABLES Final R esult Performing Organization Address [facility] de Phone Number [facility] Department [place] [address] * (ABNORMAL) Comprehensive metabolic panel (12/31/2024 2:22 AM HEARSE DRIVER) [facility] Sodium 138 135 - 145 mmol/L Potassium, pl 4.6 3.3 - 4.9 mmol/L [facility] Chloride 97 97 - 110 mmol/L [facility] CO2 33(H) 22 - 32 mmol/L [facility] Anion gap 8 2 - 15 mmol/L [facility] BUN 15 6 - 25 mg/dL [facility] Creatinine 0.90 0.80 - 1.30 mg/dL [facility] Glucose 133 70 - 199 mg/dL [facility] Comment: Interpretive Data Fasting glucose >/= 126 mg/dl is diagnostic for diabetes. Fasting is defined as no caloric intake [...] 2022. Calcium 8.9 8.5 - 10.3 mg/dL [facility] Bilirubin, total 0.3 0.1 - 1.2 mg/dL [facility] Protein, pl 6.5 6.5 - 8.5 g/dL [facility] Albumin 2.9(L) 3.5 - 5.0 g/dL [facility] Alk phos 159(H) 40 - 130 Units/L [facility] ALT 63(H) 7 - 55 Units/L [facility] AST 31 10 - 50 Units/L [facility] Blood 12/31/2024 2:22 AM HEARSE DRIVER 12/31/2024 2:39 AM HEARSE DRIVER Narrative [facility] - 12/31/2024 3:23 AM HEARSE DRIVER Saturday and only. Morning draw. us Jared Davis MD LAB BLOOD ORDERABLES Final R esult Performing Organization Address City/[facility]/ZIP Co de Phone Number [facility] Department [place] [employer] [place] [address] * (ABNORMAL) POCT glucose (12/30/2024 7:57 PM HEARSE DRIVER) Glucose, POC 219(H) 70 - 199 mg/dL Blood 12/30/2024 7:57 PM HEARSE DRIVER 12/30/2024 7:57 PM HEARSE DRIVER us Brody Park MD LAB POCT ORDERABLES - DEVICE Final Result Performing Organization Address [facility]/ZIP Co de Phone Number [facility] Department [place] [address] * POCT glucose (12/30/2024 5:37 PM HEARSE DRIVER) Glucose, POC 115 70 - 199 mg/dL Blood 12/30/2024 5:37 PM HEARSE DRIVER 12/30/2024 5:37 PM HEARSE DRIVER Brody Park MD LAB POCT ORDERABLES - DEVICE Final Result Performing Organization Address [facility] Phone Number [facility] [employer] [place] [address] * POCT glucose (12/30/2024 11:25 AM HEARSE DRIVER) [facility] Glucose, POC 77 70 - 199 mg/dL Blood 12/30/2024 11:2 5 AM HEARSE DRIVER 12/30/2024 11:25 AM HEARSE DRIVER Brody Park MD LAB POCT ORDERABLES - DEVICE Final Result Performing Organization Address [facility] de Phone Number [facility] [place] [place] [address] * POCT glucose (12/30/2024 7:37 AM HEARSE DRIVER) [facility] Glucose, POC 155 70 - 199 mg/dL Blood 12/30/2024 7:37 AM HEARSE DRIVER 12/30/2024 7:37 AM HEARSE DRIVER Brody Park MD LAB POCT ORDERABLES - DEVICE Final Result Performing Organization Address [facility] de Phone Number [facility] [place] [place] [address] * eGFR (12/30/2024 2:27 AM HEARSE DRIVER) [facility] eGFR >90 >=60 mL/min/1. 73 m2 Comment: Interpretive Data Reference Interval Normal >/= 90 mL/min/1.73m2 Mildly decreased* 60 - 89 mL/min/1.73m2 Mildly to moderately decreased 45 - 59 mL/min/1.73m2 Moderately to severely decreased 30 - 44 mL/min/1.73m2 Severely decreased 15 - 29 mL/min/1.73m2 Kidney Failure < 15 mL/min/1.73m2 *Relative to young adult level Estimated glomerular [...] interpretive data was last reviewed 2021. Blood 12/30/2024 2:27 AM HEARSE DRIVER 12/30/2024 2:49 AM HEARSE DRIVER Jared Davis MD LAB BLOOD ORDERABLES Final R esult [facility] Department [place] [address] * (ABNORMAL) Manual Differential (12/30/2024 2:27 AM HEARSE DRIVER) Differential Manual [facility] Neutrophil abs 2.7 1.5 - 6.5 K/cumm [facility] Imm gran abs 0.0 0.0 - 0.1 K/cumm [facility] Lymphocyte abs 1.9 0.8 - 3.3 K/cumm [facility] Monocyte abs 0.7 0.2 - 0.8 K/cumm [facility] Eosinophil abs 0.2 0.0 - 0.5 K/cumm [facility] Basophil abs 0.1 0.0 - 0.1 K/cumm [facility] Neutrophil pct 47.5 % [facility] Comment: Interpretive Data Percent cell count reference ranges are not reported, since discordance with absolute values may lead to misinterpretation of CBC data. Current Interpretive Data was last revised on 2018. Lymphocyte pct 34.5 % [facility] Comment: Interpretive Data Percent cell count reference ranges are not reported, since discordance with absolute values may lead to misinterpretation of CBC data. Current Interpretive Data was last revised on 2018. Monocyte pct 12.9 % [facility] Comment: Interpretive Data Percent cell count reference ranges are not reported, since discordance with absolute values may lead to misinterpretation of CBC data. Current Interpretive Data was last revised on 2018. Eosinophil pct 3.4 % [facility] Comment: Interpretive Data Percent cell count reference ranges are not reported, since discordance with absolute values may lead to misinterpretation of CBC data. Current Interpretive Data was last revised on 2018. Basophil pct 1.7 % [facility] Comment: Interpretive Data Percent cell count reference ranges are not reported, since discordance with absolute values may lead to misinterpretation of CBC data. Current Interpretive Data was last revised on 2018. RBC morphology Present(A) [facility] Anisocytosis Marked(A) [facility] Macrocytes > 15/HPF(A) [facility] Platelet estimate Adequate [facility] Blood 12/30/2024 2:27 AM HEARSE DRIVER 12/30/2024 2:49 AM HEARSE DRIVER us Jared Davis MD LAB BLOOD ORDERABLES Edited Result - Final [facility] Department [place] [address] * (ABNORMAL) CBC without differential (12/30/2024 2:27 AM HEARSE DRIVER) WBC 5.6 3.8 - 9.9 K/cumm Hgb 10.1(L) 13.0 - 17.5 g/dL [facility] Hct 30.3(L) 38.9 - 50.3 % [facility] Plt 233 150 - 400 K/cumm [facility] MPV 10.9 9.1 - 12.3 fL [facility] RBC 3.11(L) 4.30 - 5.80 M/cumm [facility] MCV 97.4(H) 81.3 - 96.4 fL [facility] MCH 32.5 27.1 - 33.3 pg [facility] MCHC 33.3 32.3 - 35.7 g/dL [facility] RDW CV 17.8(H) 11.1 - 14.9 % [facility] RDW SD 61.6(H) 35.7 - 48.1 fL [facility] NRBC abs 0.02(H) 0.00 - 0.01 K/cumm [facility] Blood 12/30/2024 2:27 AM HEARSE DRIVER 12/30/2024 2:49 AM HEARSE DRIVER Jared Davis MD LAB BLOOD ORDERABLES Final R esult Performing Organization Address City/[facility] Co de Phone Number [facility] [employer] [place] [address] * Phosphorus (12/30/2024 2:27 AM HEARSE DRIVER) Phosphorus, pl 3.9 2.3 - 4.5 mg/dL Blood 12/30/2024 2:27 AM HEARSE DRIVER 12/30/2024 2:49 AM HEARSE DRIVER Jared Davis MD LAB BLOOD ORDERABLES Final R esult Performing Organization Address [facility] de Phone Number [facility] [place] [place] [address] * Magnesium (12/30/2024 2:27 AM HEARSE DRIVER) Magnesium 2.4 1.4 - 2.5 mg/dL Blood 12/30/2024 2:27 AM HEARSE DRIVER 12/30/2024 2:49 AM HEARSE DRIVER Jared Davis MD LAB BLOOD ORDERABLES Final R esult Performing Organization Address [facility] de Phone Number [facility] [employer] [place] [address] * (ABNORMAL) Hepatic function panel (12/30/2024 2:27 AM HEARSE DRIVER) Bilirubin, total 0.3 0.1 - 1.2 mg/dL Bilirubin, direct <0.2 0.1 - 0.3 mg/dL [facility] Protein, pl 6.5 6.5 - 8.5 g/dL [facility] Albumin 2.9(L) 3.5 - 5.0 g/dL [facility] Alk phos 154(H) 40 - 130 Units/L [facility] ALT 74(H) 7 - 55 Units/L [facility] AST 26 10 - 50 Units/L [facility] Blood 12/30/2024 2:27 AM HEARSE DRIVER 12/30/2024 2:49 AM HEARSE DRIVER us Kay La MD LAB BLOOD ORDERABLES Pilar armas Result [facility] Department [place] [address] * (ABNORMAL) Basic metabolic panel (12/30/2024 2:27 AM HEARSE DRIVER) [facility] Sodium 136 135 - 145 mmol/L Potassium, pl 4.1 3.3 - 4.9 mmol/L [facility] Chloride 96(L) 97 - 110 mmol/L [facility] CO2 34(H) 22 - 32 mmol/L [facility] Anion gap 6 2 - 15 mmol/L [facility] BUN 19 6 - 25 mg/dL [facility] Creatinine 0.89 0.80 - 1.30 mg/dL [facility] Glucose 199 70 - 199 mg/dL [facility] Comment: Interpretive Data Fasting glucose >/= 126 mg/dl is diagnostic for diabetes. Fasting is defined as no caloric intake [...] 2022. Calcium 8.8 8.5 - 10.3 mg/dL [facility] Blood 12/30/2024 2:27 AM HEARSE DRIVER 12/30/2024 2:49 AM HEARSE DRIVER Narrative [facility] - 12/30/2024 3:19 AM HEARSE DRIVER Daily except Saturday and . Morning draw. us Jared Davis MD LAB BLOOD ORDERABLES Final R esult Performing Organization Address City/[facility]/ZIP Co de Phone Number [facility] Department [place] [place] [address] * POCT glucose (12/29/2024 8:28 PM HEARSE DRIVER) Glucose, POC 111 70 - 199 mg/dL Blood 12/29/2024 8:28 PM HEARSE DRIVER 12/29/2024 8:28 PM HEARSE DRIVER us Brody Park MD LAB POCT ORDERABLES - DEVICE Final Result Performing Organization Address [facility] Co de Phone Number [facility] [place] [employer] [place] [address] * POCT glucose (12/29/2024 8:07 PM HEARSE DRIVER) Glucose, POC 114 70 - 199 mg/dL Blood 12/29/2024 8:07 PM HEARSE DRIVER 12/29/2024 8:07 PM HEARSE DRIVER Brody Park MD LAB POCT ORDERABLES - DEVICE Final Result Performing Organization Address [facility] Co de Phone Number [facility] [employer] [place] [address] * POCT glucose (12/29/2024 4:53 PM HEARSE DRIVER) Glucose, POC 132 70 - 199 mg/dL Blood 12/29/2024 4:53 PM HEARSE DRIVER 12/29/2024 4:53 PM HEARSE DRIVER us Brody Park MD LAB POCT ORDERABLES - DEVICE Final Result Performing Organization Address [facility] de Phone Number [facility] Department [place] [address] * eGFR (12/29/2024 3:10 PM HEARSE DRIVER) eGFR >90 >=60 mL/min/1. 73 m2 Comment: Interpretive Data Reference Interval Normal >/= 90 mL/min/1.73m2 Mildly decreased* 60 - 89 mL/min/1.73m2 Mildly to moderately decreased 45 - 59 mL/min/1.73m2 Moderately to severely decreased 30 - 44 mL/min/1.73m2 Severely decreased 15 - 29 mL/min/1.73m2 Kidney Failure < 15 mL/min/1.73m2 *Relative to young adult level Estimated glomerular [...] interpretive data was last reviewed 2021. Blood 12/29/2024 3:10 PM HEARSE DRIVER 12/29/2024 3:29 PM HEARSE DRIVER us Lalo Perez MD LAB BLOOD ORDERABLES Final Resu lt Performing Organization Address [facility] Co de Phone Number [facility] [place] [address] * (ABNORMAL) Basic metabolic panel (12/29/2024 3:10 PM HEARSE DRIVER) Pathologist [facility] Sodium 137 135 - 145 mmol/L Potassium, pl 4.3 3.3 - 4.9 mmol/L [facility] Comment:Hemolyzed; Potassium value may be falsely elevated by as much as 0.6-1.0 mmol/L. Suggest redraw and reanalysis. Chloride 95(L) 97 - 110 mmol/L [facility] CO2 36(H) 22 - 32 mmol/L [facility] Anion gap 6 2 - 15 mmol/L [facility] BUN 16 6 - 25 mg/dL [facility] Creatinine 0.78(L) 0.80 - 1.30 mg/dL [facility] Glucose 122 70 - 199 mg/dL [facility] Comment: Interpretive Data Fasting glucose >/= 126 mg/dl is diagnostic for diabetes. Fasting is defined as no caloric intake [...] 2022. Calcium 9.2 8.5 - 10.3 mg/dL [facility] Blood 12/29/2024 3:10 PM HEARSE DRIVER 12/29/2024 3:29 PM HEARSE DRIVER us Lalo Perez MD LAB BLOOD ORDERABLES Final Resu lt Performing Organization Address City/[facility]/ZIP Co de Phone Number [facility] Department [place] [place] [address] * POCT glucose (12/29/2024 12:18 PM HEARSE DRIVER) [facility] Glucose, POC 134 70 - 199 mg/dL Blood 12/29/2024 12:1 8 PM HEARSE DRIVER 12/29/2024 12:18 PM HEARSE DRIVER us Brody Park MD LAB POCT ORDERABLES - DEVICE Final Result Performing Organization Address City/[facility]/ZIP Co de Phone Number [facility] Department [place] [address] * POCT glucose (12/29/2024 7:39 AM HEARSE DRIVER) [facility] Glucose, POC 145 70 - 199 mg/dL Blood 12/29/2024 7:39 AM HEARSE DRIVER 12/29/2024 7:39 AM HEARSE DRIVER us Brody Park MD LAB POCT ORDERABLES - DEVICE Final Result Performing Organization Address City/[facility] Co de Phone Number [facility] Department [place] [address] * eGFR (12/29/2024 12:27 AM HEARSE DRIVER) [facility] eGFR >90 >=60 mL/min/1. 73 m2 Comment: Interpretive Data Reference Interval Normal >/= 90 mL/min/1.73m2 Mildly decreased* 60 - 89 mL/min/1.73m2 Mildly to moderately decreased 45 - 59 mL/min/1.73m2 Moderately to severely decreased 30 - 44 mL/min/1.73m2 Severely decreased 15 - 29 mL/min/1.73m2 Kidney Failure < 15 mL/min/1.73m2 *Relative to young adult level Estimated glomerular [...] interpretive data was last reviewed 2021. Blood 12/29/2024 12:2 7 AM HEARSE DRIVER 12/29/2024 12:40 AM HEARSE DRIVER us Jared Davis MD LAB BLOOD ORDERABLES Final R esult Performing Organization Address City/[facility]/ZIP Co de Phone Number [facility] [place] [address] * (ABNORMAL) Manual Differential (12/29/2024 12:27 AM HEARSE DRIVER) [facility] Differential Manual Cells Counted 120 [facility] Neutrophil abs 4.6 1.5 - 6.5 K/cumm [facility] Imm gran abs 0.0 0.0 - 0.1 K/cumm [facility] Lymphocyte abs 2.7 0.8 - 3.3 K/cumm [facility] Monocyte abs 0.4 0.2 - 0.8 K/cumm [facility] Eosinophil abs 0.2 0.0 - 0.5 K/cumm [facility] Neutrophil pct 58.3 % [facility] Comment: Interpretive Data Percent cell count reference ranges are not reported, since discordance with absolute values may lead to misinterpretation of CBC data. Current Interpretive Data was last revised on 2018. Lymphocyte pct 34.2 % [facility] Comment: Interpretive Data Percent cell count reference ranges are not reported, since discordance with absolute values may lead to misinterpretation of CBC data. Current Interpretive Data was last revised on 2018. Monocyte pct 5.0 % [facility] Comment: Interpretive Data Percent cell count reference ranges are not reported, since discordance with absolute values may lead to misinterpretation of CBC data. Current Interpretive Data was last revised on 2018. Eosinophil pct 2.5 % [facility] Comment: Interpretive Data Percent cell count reference ranges are not reported, since discordance with absolute values may lead to misinterpretation of CBC data. Current Interpretive Data was last revised on 2018. RBC morphology Present(A) [facility] Anisocytosis Moderate(A) [facility] Macrocytes 8-15/HPF(A) [facility] Platelet estimate Adequate [facility] Blood 12/29/2024 12:2 7 AM HEARSE DRIVER 12/29/2024 12:40 AM HEARSE DRIVER us Jared Davis MD LAB BLOOD ORDERABLES Final R esult [facility] [place] [address] * (ABNORMAL) CBC without differential (12/29/2024 12:27 AM HEARSE DRIVER) [facility] WBC 7.9 3.8 - 9.9 K/cumm Hgb 11.2(L) 13.0 - 17.5 g/dL [facility] Hct 33.8(L) 38.9 - 50.3 % [facility] Plt 225 150 - 400 K/cumm [facility] MPV 11.1 9.1 - 12.3 fL [facility] RBC 3.45(L) 4.30 - 5.80 M/cumm [facility] MCV 98.0(H) 81.3 - 96.4 fL [facility] MCH 32.5 27.1 - 33.3 pg [facility] MCHC 33.1 32.3 - 35.7 g/dL [facility] RDW CV 18.0(H) 11.1 - 14.9 % [facility] RDW SD 62.6(H) 35.7 - 48.1 fL [facility] NRBC abs 0.05(H) 0.00 - 0.01 K/cumm [facility] Blood 12/29/2024 12:2 7 AM HEARSE DRIVER 12/29/2024 12:40 AM HEARSE DRIVER Jared Davis MD LAB BLOOD ORDERABLES Final R esult [facility] Department [place] [employer] [place] [address] * Phosphorus (12/29/2024 12:27 AM HEARSE DRIVER) [facility] Phosphorus, pl 3.5 2.3 - 4.5 mg/dL Blood 12/29/2024 12:2 7 AM HEARSE DRIVER 12/29/2024 12:40 AM HEARSE DRIVER Jared Davis MD LAB BLOOD ORDERABLES Final R esult [facility] [place] [address] * Magnesium (12/29/2024 12:27 AM HEARSE DRIVER) [facility] Magnesium 1.5 1.4 - 2.5 mg/dL Blood 12/29/2024 12:2 7 AM HEARSE DRIVER 12/29/2024 12:40 AM HEARSE DRIVER Jared Davis MD LAB BLOOD ORDERABLES Final R esult Performing Organization Address [facility]/ZIP Co de Phone Number [facility] Department [place] [address] * (ABNORMAL) Hepatic function panel (12/29/2024 12:27 AM HEARSE DRIVER) [facility] Bilirubin, total 0.3 0.1 - 1.2 mg/dL Bilirubin, direct <0.2 0.1 - 0.3 mg/dL [facility] Comment:Repeated and Verifie d Protein, pl 6.9 6.5 - 8.5 g/dL [facility] Albumin 3.0(L) 3.5 - 5.0 g/dL [facility] Alk phos 164(H) 40 - 130 Units/L [facility] ALT 105(H) 7 - 55 Units/L [facility] AST 46 10 - 50 Units/L [facility] Blood 12/29/2024 12:2 7 AM HEARSE DRIVER 12/29/2024 12:40 AM HEARSE DRIVER Kay La MD LAB BLOOD ORDERABLES Pilar l Result Performing Organization Address [facility] Co de Phone Number [facility] Department [place] [address] * (ABNORMAL) Basic metabolic panel (12/29/2024 12:27 AM HEARSE DRIVER) [facility] Sodium 134(L) 135 - 145 mmol/L Potassium, pl 5.0(H) 3.3 - 4.9 mmol/L [facility] Chloride 91(L) 97 - 110 mmol/L [facility] CO2 38(H) 22 - 32 mmol/L [facility] Anion gap 5 2 - 15 mmol/L [facility] BUN 17 6 - 25 mg/dL [facility] Creatinine 0.84 0.80 - 1.30 mg/dL [facility] Glucose 163 70 - 199 mg/dL [facility] Comment: Interpretive Data Fasting glucose >/= 126 mg/dl is diagnostic for diabetes. Fasting is defined as no caloric intake [...] 2022. Calcium 9.2 8.5 - 10.3 mg/dL [facility] Blood 12/29/2024 12:2 7 AM HEARSE DRIVER 12/29/2024 12:40 AM HEARSE DRIVER Narrative [facility] - 12/29/2024 1:25 AM HEARSE DRIVER Daily except Saturday and . Morning draw. us Jared Davis MD LAB BLOOD ORDERABLES Final R esult Performing Organization Address City/[facility]/ZIP Co de Phone Number [facility] Department [place] [place] [address] * POCT glucose (12/28/2024 7:58 PM HEARSE DRIVER) Glucose, POC 177 70 - 199 mg/dL Blood 12/28/2024 7:58 PM HEARSE DRIVER 12/28/2024 7:58 PM HEARSE DRIVER us Brody Park MD LAB POCT ORDERABLES - DEVICE Final Result Performing Organization Address City/[facility]/ZIP Co de Phone Number [facility] Department [place] [place] [address] * POCT glucose (12/28/2024 5:19 PM HEARSE DRIVER) Glucose, POC 89 70 - 199 mg/dL Blood 12/28/2024 5:19 PM HEARSE DRIVER 12/28/2024 5:19 PM HEARSE DRIVER us Brody Park MD LAB POCT ORDERABLES - DEVICE Final Result Performing Organization Address [facility] de Phone Number [facility] [employer] [place] [address] * POCT glucose (12/28/2024 12:24 PM HEARSE DRIVER) Glucose, POC 99 70 - 199 mg/dL Blood 12/28/2024 12:2 4 PM HEARSE DRIVER 12/28/2024 12:24 PM HEARSE DRIVER us Brody Park MD LAB POCT ORDERABLES - DEVICE Final Result Performing Organization Address [facility] de Phone Number [facility] [place] [place] [address] * POCT glucose (12/28/2024 7:47 AM HEARSE DRIVER) [facility] Glucose, POC 112 70 - 199 mg/dL Blood 12/28/2024 7:47 AM HEARSE DRIVER 12/28/2024 7:47 AM HEARSE DRIVER Brody Park MD LAB POCT ORDERABLES - DEVICE Final Result Performing Organization Address [facility] de Phone Number [facility] [place] [place] [address] * eGFR (12/28/2024 1:52 AM HEARSE DRIVER) [facility] eGFR >90 >=60 mL/min/1. 73 m2 Comment: Interpretive Data Reference Interval Normal >/= 90 mL/min/1.73m2 Mildly decreased* 60 - 89 mL/min/1.73m2 Mildly to moderately decreased 45 - 59 mL/min/1.73m2 Moderately to severely decreased 30 - 44 mL/min/1.73m2 Severely decreased 15 - 29 mL/min/1.73m2 Kidney Failure < 15 mL/min/1.73m2 *Relative to young adult level Estimated glomerular [...] interpretive data was last reviewed 2021. Blood 12/28/2024 1:52 AM HEARSE DRIVER 12/28/2024 2:21 AM HEARSE DRIVER Jared Davis MD LAB BLOOD ORDERABLES Final R esult [facility] Department [place] [address] * (ABNORMAL) Manual Differential (12/28/2024 1:52 AM HEARSE DRIVER) Differential Manual Cells Counted 115 [facility] Neutrophil abs 4.7 1.5 - 6.5 K/cumm [facility] Imm gran abs 0.0 0.0 - 0.1 K/cumm [facility] Lymphocyte abs 3.0 0.8 - 3.3 K/cumm [facility] Monocyte abs 1.2(H) 0.2 - 0.8 K/cumm [facility] Eosinophil abs 0.1 0.0 - 0.5 K/cumm [facility] Neutrophil pct 52.2 % [facility] Comment: Interpretive Data Percent cell count reference ranges are not reported, since discordance with absolute values may lead to misinterpretation of CBC data. Current Interpretive Data was last revised on 2018. Lymphocyte pct 33.9 % [facility] Comment: Interpretive Data Percent cell count reference ranges are not reported, since discordance with absolute values may lead to misinterpretation of CBC data. Current Interpretive Data was last revised on 2018. Monocyte pct 13.0 % [facility] Comment: Interpretive Data Percent cell count reference ranges are not reported, since discordance with absolute values may lead to misinterpretation of CBC data. Current Interpretive Data was last revised on 2018. Eosinophil pct 0.9 % [facility] Comment: Interpretive Data Percent cell count reference ranges are not reported, since discordance with absolute values may lead to misinterpretation of CBC data. Current Interpretive Data was last revised on 2018. RBC morphology Normal [facility] Platelet estimate Adequate [facility] Blood 12/28/2024 1:52 AM HEARSE DRIVER 12/28/2024 2:21 AM HEARSE DRIVER us Jared Davis MD LAB BLOOD ORDERABLES Edited Result - Final Performing Organization Address [facility] Co de Phone Number [facility] [place] [employer] [place] [address] * aPTT (12/28/2024 1:52 AM HEARSE DRIVER) aPTT 36 28 - 38 sec Comment: Interpretive Data Heparin therapeutic range: 66.0 - 100.0 seconds. Range based on correlation with therapeutic heparin activity range of 0.3 - 0.7 Units/mL. Current interpretive data was last revised on 2023. Blood 12/28/2024 1:52 AM HEARSE DRIVER 12/28/2024 2:44 AM HEARSE DRIVER Jared Davis MD LAB BLOOD ORDERABLES Final R esult Performing Organization Address City/[facility] Co de Phone Number [facility] [place] [employer] [place] [address] * Protime-INR (12/28/2024 1:52 AM HEARSE DRIVER) PT 11.4 9.7 - 13.0 sec INR 1.05 0.90 - 1.20 [facility] Comment: Interpretive data Oral anticoagulant therapeutic ranges: Venous thromboembolism prophylaxis or treatment: 2.0-3.0 CARDIOLOGY Standard range: 2.0-3.0 High-intensity range: 2.5-3.5 Refer to indication-specific guidelines for appropriate target ranges for prosthetic heart valve replacement. Current interpretive data was last revised on 2019. Blood 12/28/2024 1:52 AM HEARSE DRIVER 12/28/2024 2:44 AM HEARSE DRIVER Jared Davis MD LAB BLOOD ORDERABLES Final R esult Performing Organization Address City/[facility] Co de Phone Number [facility] Department [place] [employer] [place] [address] * (ABNORMAL) CBC without differential (12/28/2024 1:52 AM HEARSE DRIVER) Pathologist [facility] WBC 9.0 3.8 - 9.9 K/cumm Hgb 10.7(L) 13.0 - 17.5 g/dL [facility] Hct 32.0(L) 38.9 - 50.3 % [facility] Plt 242 150 - 400 K/cumm [facility] MPV 11.0 9.1 - 12.3 fL [facility] RBC 3.28(L) 4.30 - 5.80 M/cumm [facility] MCV 97.6(H) 81.3 - 96.4 fL [facility] MCH 32.6 27.1 - 33.3 pg [facility] MCHC 33.4 32.3 - 35.7 g/dL [facility] RDW CV 18.0(H) 11.1 - 14.9 % [facility] RDW SD 62.2(H) 35.7 - 48.1 fL [facility] NRBC abs 0.06(H) 0.00 - 0.01 K/cumm [facility] Blood 12/28/2024 1:52 AM HEARSE DRIVER 12/28/2024 2:21 AM HEARSE DRIVER Jared Davis MD LAB BLOOD ORDERABLES Final R esult Performing Organization Address City/[facility]/ZIP Co de Phone Number [facility] [place] [employer] [place] [address] * Type and screen (12/28/2024 1:52 AM HEARSE DRIVER) ABO Rh A Positive Ursula, indirect Negative [facility] Blood 12/28/2024 1:52 AM HEARSE DRIVER 12/28/2024 2:14 AM HEARSE DRIVER Narrative [facility] - 12/28/2024 3:17 AM HEARSE DRIVER Has the patient had Daratumumab or Isatuximab in the past 6 months?->Unknown Jared Davis MD LAB BLOOD BANK TEST ORDERABL ES Final Result Performing Organization Address [facility] Co de Phone Number [facility] [employer] [place] [address] * (ABNORMAL) Uric acid (12/28/2024 1:52 AM HEARSE DRIVER) Pathologist [facility] Uric acid 2.5(L) 3.0 - 8.0 mg/dL Blood 12/28/2024 1:52 AM HEARSE DRIVER 12/28/2024 2:21 AM HEARSE DRIVER Narrative [facility] - 12/28/2024 2:54 AM HEARSE DRIVER Saturday and only. Morning draw. . us Jared Davis MD LAB BLOOD ORDERABLES Final R esult Performing Organization Address City/[facility] Co de Phone Number [facility] [place] [place] [address] * Phosphorus (12/28/2024 1:52 AM HEARSE DRIVER) Phosphorus, pl 3.0 2.3 - 4.5 mg/dL Blood 12/28/2024 1:52 AM HEARSE DRIVER 12/28/2024 2:21 AM HEARSE DRIVER Jared Davis MD LAB BLOOD ORDERABLES Final R esult Performing Organization Address City/[facility]/ZIP Co de Phone Number [facility] [place] [place] [address] * Magnesium (12/28/2024 1:52 AM HEARSE DRIVER) Magnesium 1.8 1.4 - 2.5 mg/dL Blood 12/28/2024 1:52 AM HEARSE DRIVER 12/28/2024 2:21 AM HEARSE DRIVER us Jared Davis MD LAB BLOOD ORDERABLES Final R esult Performing Organization Address City/[facility] Co de Phone Number [facility] [place] [address] * (ABNORMAL) Lactate dehydrogenase (LD) (12/28/2024 1:52 AM HEARSE DRIVER) Pathologist [facility] Lactate dehydrogenase (LDH) 304(H) 100 - 250 Units/L Blood 12/28/2024 1:52 AM HEARSE DRIVER 12/28/2024 2:21 AM HEARSE DRIVER N[facility]ative [facility] - 12/28/2024 3:57 AM HEARSE DRIVER Saturday and only. Morning draw. us Jared Davis MD LAB BLOOD ORDERABLES Final R esult Performing Organization Address [facility] Co de Phone Number [facility] [employer] [place] [address] * Bilirubin, direct (12/28/2024 1:52 AM HEARSE DRIVER) Pathologist [facility] Bilirubin, direct 0.2 0.1 - 0.3 mg/dL Comment:Reviewed Blood 12/28/2024 1:52 AM HEARSE DRIVER 12/28/2024 2:21 AM HEARSE DRIVER us Jared Davis MD LAB BLOOD ORDERABLES Final R esult Performing Organization Address City/[facility] Co de Phone Number [facility] [place] [address] * (ABNORMAL) Comprehensive metabolic panel (12/28/2024 1:52 AM HEARSE DRIVER) [facility] Sodium 139 135 - 145 mmol/L Potassium, pl 4.8 3.3 - 4.9 mmol/L [facility] Chloride 96(L) 97 - 110 mmol/L [facility] CO2 39(H) 22 - 32 mmol/L [facility] Anion gap 4 2 - 15 mmol/L [facility] BUN 13 6 - 25 mg/dL [facility] Creatinine 0.72(L) 0.80 - 1.30 mg/dL [facility] Glucose 101 70 - 199 mg/dL [facility] Comment: Interpretive Data Fasting glucose >/= 126 mg/dl is diagnostic for diabetes. Fasting is defined as no caloric intake [...] 2022. Calcium 9.4 8.5 - 10.3 mg/dL [facility] Bilirubin, total 0.4 0.1 - 1.2 mg/dL [facility] Protein, pl 7.0 6.5 - 8.5 g/dL [facility] Albumin 3.1(L) 3.5 - 5.0 g/dL [facility] Alk phos 159(H) 40 - 130 Units/L [facility] ALT 128(H) 7 - 55 Units/L [facility] AST 63(H) 10 - 50 Units/L [facility] Blood 12/28/2024 1:52 AM HEARSE DRIVER 12/28/2024 2:21 AM HEARSE DRIVER Narrative [facility] - 12/28/2024 2:54 AM HEARSE DRIVER Saturday and only. Morning draw. Jared Davis MD LAB BLOOD ORDERABLES Final R esult [facility] [place] [address] * POCT glucose (12/27/2024 9:14 PM HEARSE DRIVER) Glucose, POC 138 70 - 199 mg/dL Comment:Glu2: RN/ Notified Glucose comment 1 Glu2: RN/ Notified [facility] Blood 12/27/2024 9:14 PM HEARSE DRIVER 12/27/2024 9:14 PM HEARSE DRIVER Brody Park MD LAB POCT ORDERABLES - DEVICE Final Result Performing Organization Address City/[facility]/ZIP [place] [address] * POCT glucose (12/27/2024 4:57 PM HEARSE DRIVER) Glucose, POC 154 70 - 199 mg/dL Blood 12/27/2024 4:57 PM HEARSE DRIVER 12/27/2024 4:57 PM HEARSE DRIVER Brody Park MD LAB POCT ORDERABLES - DEVICE Final Result Performing Organization Address [facility] [place] [address] * (ABNORMAL) POCT glucose (12/27/2024 12:15 PM HEARSE DRIVER) Glucose, POC 204(H) 70 - 199 mg/dL Comment:Glu2: RN/ Notified Glucose comment 1 Glu2: RN/ Notified [facility] Blood 12/27/2024 12:1 5 PM HEARSE DRIVER 12/27/2024 12:15 PM HEARSE DRIVER Brody Park MD LAB POCT ORDERABLES - DEVICE Final Result Performing Organization Address City/[facility]/ZIP Co de Phone Number [facility] [employer] [place] [address] * POCT glucose (12/27/2024 7:41 AM HEARSE DRIVER) Glucose, POC 126 70 - 199 mg/dL Blood 12/27/2024 7:41 AM HEARSE DRIVER 12/27/2024 7:41 AM HEARSE DRIVER us Brody Park MD LAB POCT ORDERABLES - DEVICE Final Result Performing Organization Address [facility] Co de Phone Number [facility] Department [place] [employer] [place] [address] * eGFR (12/27/2024 2:02 AM HEARSE DRIVER) eGFR >90 >=60 mL/min/1. 73 m2 Comment: Interpretive Data Reference Interval Normal >/= 90 mL/min/1.73m2 Mildly decreased* 60 - 89 mL/min/1.73m2 Mildly to moderately decreased 45 - 59 mL/min/1.73m2 Moderately to severely decreased 30 - 44 mL/min/1.73m2 Severely decreased 15 - 29 mL/min/1.73m2 Kidney Failure < 15 mL/min/1.73m2 *Relative to young adult level Estimated glomerular [...] interpretive data was last reviewed 2021. Blood 12/27/2024 2:02 AM HEARSE DRIVER 12/27/2024 2:44 AM HEARSE DRIVER us Jared Davis MD LAB BLOOD ORDERABLES Final R esult Performing Organization Address City/[facility]/ZIP Co de Phone Number [facility] [place] [address] * (ABNORMAL) Manual Differential (12/27/2024 2:02 AM HEARSE DRIVER) Differential Manual Cells Counted 114 [facility] Neutrophil abs 5.8 1.5 - 6.5 K/cumm [facility] Imm gran abs 0.0 0.0 - 0.1 K/cumm [facility] Lymphocyte abs 1.7 0.8 - 3.3 K/cumm [facility] Monocyte abs 1.1(H) 0.2 - 0.8 K/cumm [facility] Eosinophil abs 0.3 0.0 - 0.5 K/cumm [facility] Neutrophil pct 64.9 % [facility] Comment: Interpretive Data Percent cell count reference ranges are not reported, since discordance with absolute values may lead to misinterpretation of CBC data. Current Interpretive Data was last revised on 2018. Lymphocyte pct 19.3 % [facility] Comment: Interpretive Data Percent cell count reference ranges are not reported, since discordance with absolute values may lead to misinterpretation of CBC data. Current Interpretive Data was last revised on 2018. Monocyte pct 12.3 % [facility] Comment: Interpretive Data Percent cell count reference ranges are not reported, since discordance with absolute values may lead to misinterpretation of CBC data. Current Interpretive Data was last revised on 2018. Eosinophil pct 3.5 % [facility] Comment: Interpretive Data Percent cell count reference ranges are not reported, since discordance with absolute values may lead to misinterpretation of CBC data. Current Interpretive Data was last revised on 2018. RBC morphology Present(A) [facility] Anisocytosis Marked(A) [facility] Macrocytes > 15/HPF(A) [facility] Platelet estimate Adequate [facility] Blood 12/27/2024 2:02 AM HEARSE DRIVER 12/27/2024 2:44 AM HEARSE DRIVER Jared Davis MD LAB BLOOD ORDERABLES Edited Result - Final [facility] Department [place] [address] * (ABNORMAL) CBC without differential (12/27/2024 2:02 AM HEARSE DRIVER) [facility] WBC 9.0 3.8 - 9.9 K/cumm Hgb 9.7(L) 13.0 - 17.5 g/dL [facility] Hct 29.7(L) 38.9 - 50.3 % [facility] Plt 218 150 - 400 K/cumm [facility] MPV 10.8 9.1 - 12.3 fL [facility] RBC 3.00(L) 4.30 - 5.80 M/cumm [facility] MCV 99.0(H) 81.3 - 96.4 fL [facility] MCH 32.3 27.1 - 33.3 pg [facility] MCHC 32.7 32.3 - 35.7 g/dL [facility] RDW CV 18.2(H) 11.1 - 14.9 % [facility] RDW SD 64.7(H) 35.7 - 48.1 fL [facility] NRBC abs 0.05(H) 0.00 - 0.01 K/cumm [facility] Blood 12/27/2024 2:02 AM HEARSE DRIVER 12/27/2024 2:44 AM HEARSE DRIVER Jared Davis MD LAB BLOOD ORDERABLES Final R esult Performing Organization Address City/[facility] Co de Phone Number [facility] [place] [place] [address] * (ABNORMAL) Phosphorus (12/27/2024 2:02 AM HEARSE DRIVER) [facility] Phosphorus, pl 2.2(L) 2.3 - 4.5 mg/dL Blood 12/27/2024 2:02 AM HEARSE DRIVER 12/27/2024 2:44 AM HEARSE DRIVER Jared Davis MD LAB BLOOD ORDERABLES Final R esult Performing Organization Address [facility] Co de Phone Number [facility] [place] [address] * (ABNORMAL) Magnesium (12/27/2024 2:02 AM HEARSE DRIVER) [facility] Magnesium 1.3(L) 1.4 - 2.5 mg/dL Blood 12/27/2024 2:02 AM HEARSE DRIVER 12/27/2024 2:44 AM HEARSE DRIVER Jared Davis MD LAB BLOOD ORDERABLES Final R esult Performing Organization Address [facility] Co de Phone Number [facility] Department [place] [address] * (ABNORMAL) Hepatic function panel (12/27/2024 2:02 AM HEARSE DRIVER) [facility] Bilirubin, total 0.3 0.1 - 1.2 mg/dL Bilirubin, direct <0.2 0.1 - 0.3 mg/dL [facility] Protein, pl 6.0(L) 6.5 - 8.5 g/dL [facility] Albumin 2.6(L) 3.5 - 5.0 g/dL [facility] Alk phos 135(H) 40 - 130 Units/L [facility] ALT 123(H) 7 - 55 Units/L [facility] AST 34 10 - 50 Units/L [facility] Blood 12/27/2024 2:02 AM HEARSE DRIVER 12/27/2024 2:44 AM HEARSE DRIVER Kay La MD LAB BLOOD ORDERABLES Pilar l Result Performing Organization Address [facility] de Phone Number [facility] Department [place] [address] * (ABNORMAL) Basic metabolic panel (12/27/2024 2:02 AM HEARSE DRIVER) [facility] Sodium 137 135 - 145 mmol/L Potassium, pl 4.1 3.3 - 4.9 mmol/L [facility] Chloride 96(L) 97 - 110 mmol/L [facility] CO2 38(H) 22 - 32 mmol/L [facility] Anion gap 3 2 - 15 mmol/L [facility] BUN 8 6 - 25 mg/dL [facility] Creatinine 0.64(L) 0.80 - 1.30 mg/dL [facility] Glucose 187 70 - 199 mg/dL [facility] Comment: Interpretive Data Fasting glucose >/= 126 mg/dl is diagnostic for diabetes. Fasting is defined as no caloric intake [...] 2022. Calcium 8.7 8.5 - 10.3 mg/dL [facility] Blood 12/27/2024 2:02 AM HEARSE DRIVER 12/27/2024 2:44 AM HEARSE DRIVER Narrative [facility] - 12/27/2024 3:11 AM HEARSE DRIVER Daily except Saturday and . Morning draw. us Jared Davis MD LAB BLOOD ORDERABLES Final R esult Performing Organization Address City/[facility]/ZIP Co de Phone Number [facility] Department [place] [address] * POCT glucose (12/26/2024 8:23 PM HEARSE DRIVER) Glucose, POC 168 70 - 199 mg/dL Blood 12/26/2024 8:23 PM HEARSE DRIVER 12/26/2024 8:23 PM HEARSE DRIVER us Brody Park MD LAB POCT ORDERABLES - DEVICE Final Result Performing Organization Address City/[facility]/ZIP Co de Phone Number [facility] Department [place] [address] * POCT glucose (12/26/2024 5:08 PM HEARSE DRIVER) Glucose, POC 151 70 - 199 mg/dL Blood 12/26/2024 5:08 PM HEARSE DRIVER 12/26/2024 5:08 PM HEARSE DRIVER Brody Park MD LAB POCT ORDERABLES - DEVICE Final Result Performing Organization Address [facility] de Phone Number [facility] [place] [address] * POCT glucose (12/26/2024 12:17 PM HEARSE DRIVER) Glucose, POC 132 70 - 199 mg/dL Blood 12/26/2024 12:1 7 PM HEARSE DRIVER 12/26/2024 12:17 PM HEARSE DRIVER Brody Park MD LAB POCT ORDERABLES - DEVICE Final Result Performing Organization Address [facility] de Phone Number [facility] [place] [place] [address] * (ABNORMAL) POCT glucose (12/26/2024 7:40 AM HEARSE DRIVER) [facility] Glucose, POC 206(H) 70 - 199 mg/dL Comment:Glu2: RN/MD Notified Glucose comment 1 Glu2: RN/MD Notified [facility] Blood 12/26/2024 7:40 AM HEARSE DRIVER 12/26/2024 7:40 AM HEARSE DRIVER Brody Park MD LAB POCT ORDERABLES - DEVICE Final Result Performing Organization Address [facility] [place] [address] * Sepsis Lactate w/ Reflex (12/26/2024 2:56 AM HEARSE DRIVER) [facility] Sepsis Lactate 1.0 0.7 - 2.0 mmol/L Blood 12/26/2024 2:56 AM HEARSE DRIVER 12/26/2024 3:09 AM HEARSE DRIVER Narrative [facility] - 12/26/2024 3:17 AM HEARSE DRIVER Obtain Lactate w/ reflex STAT. Lactate result greater than 2 mmol/L is abnormal. Call provider immediately upon receiving abnormal lactate result. If results are abnormal, Bridge will automatically activate two additional lactate levels. One to be drawn 3 hrs after the initial lactate level was drawn. If the second sample is > 2.0, a rule will fire to order an additional Lactate timed 3 hours from the second order's collection time. us Jared Davis MD LAB BLOOD ORDERABLES Final R esult [facility] Department [place] [address] * Blood culture Blood Peripheral (12/26/2024 2:56 AM HEARSE DRIVER) Report Final Report: No growth Blood (Peripheral) 12/26/2024 2:56 AM HEARSE DRIVER 12/26/2024 3:20 AM HEARSE DRIVER Narrative [facility] - 12/30/2024 7:01 AM HEARSE DRIVER Collection->Peripheral 1. Blood cultures are incubated for 4 days on [...] can result in false negative blood cultures. 4. For pediatric patients, the recommended blood volume to collect follows a weight based strategy. See the electronic test catalog for collection instructions. 5. For positive blood cultures, a rapid molecular test may be performed for organism identification using the michel ePlex blood culture identification panel for gram positive (BCID-GP) and gram negative (BCID-GN) organisms. This nucleic acid amplification test detects microbial DNA in positive blood culture broth. This assay has been cleared by the [place] Food and Drug Administration and its performance characteristics have been verified by the [facility] Microbiology Laboratory. For questions about this culture, contact the Microbiology Laboratory at [phone]. Interpretive data was last revised on 24. Jared Davis MD LAB MICROBIOLOGY - GENERAL O RDERABLES Final Result Performing Organization Address City/[facility] Co de Phone Number [facility] Department [place] [address] * eGFR (12/26/2024 1:49 AM HEARSE DRIVER) Pathologist [facility] eGFR >90 >=60 mL/min/1. 73 m2 Comment: Interpretive Data Reference Interval Normal >/= 90 mL/min/1.73m2 Mildly decreased* 60 - 89 mL/min/1.73m2 Mildly to moderately decreased 45 - 59 mL/min/1.73m2 Moderately to severely decreased 30 - 44 mL/min/1.73m2 Severely decreased 15 - 29 mL/min/1.73m2 Kidney Failure < 15 mL/min/1.73m2 *Relative to young adult level Estimated glomerular [...] interpretive data was last reviewed 2021. Blood 12/26/2024 1:49 AM HEARSE DRIVER 12/26/2024 2:09 AM HEARSE DRIVER Jared Davis MD LAB BLOOD ORDERABLES Final R esult Performing Organization Address City/[facility]/ZIP Co de Phone Number [facility] [place] [address] * (ABNORMAL) Manual Differential (12/26/2024 1:49 AM HEARSE DRIVER) Pathologist [facility] Differential Manual Cells Counted 119 [facility] Neutrophil abs 2.4 1.5 - 6.5 K/cumm [facility] Imm gran abs 0.0 0.0 - 0.1 K/cumm [facility] Lymphocyte abs 3.1 0.8 - 3.3 K/cumm [facility] Monocyte abs 1.5(H) 0.2 - 0.8 K/cumm [facility] Basophil abs 0.1 0.0 - 0.1 K/cumm [facility] Neutrophil pct 34.5 % [facility] Comment: Interpretive Data Percent cell count reference ranges are not reported, since discordance with absolute values may lead to misinterpretation of CBC data. Current Interpretive Data was last revised on 2018. Lymphocyte pct 43.7 % [facility] Comment: Interpretive Data Percent cell count reference ranges are not reported, since discordance with absolute values may lead to misinterpretation of CBC data. Current Interpretive Data was last revised on 2018. Monocyte pct 21.0 % [facility] Comment: Interpretive Data Percent cell count reference ranges are not reported, since discordance with absolute values may lead to misinterpretation of CBC data. Current Interpretive Data was last revised on 2018. Basophil pct 0.8 % [facility] Comment: Interpretive Data Percent cell count reference ranges are not reported, since discordance with absolute values may lead to misinterpretation of CBC data. Current Interpretive Data was last revised on 2018. RBC morphology Present(A) [facility] Anisocytosis Marked(A) [facility] Macrocytes > 15/HPF(A) [facility] Platelet estimate Adequate [facility] Blood 12/26/2024 1:49 AM HEARSE DRIVER 12/26/2024 2:09 AM HEARSE DRIVER Jared Davis MD LAB BLOOD ORDERABLES Edited Result - Final [facility] SYSTEM [facility] Department [place] [address] * (ABNORMAL) CBC without differential (12/26/2024 1:49 AM HEARSE DRIVER) Pathologist [facility] WBC 7.1 3.8 - 9.9 K/cumm Hgb 10.5(L) 13.0 - 17.5 g/dL [facility] Hct 30.9(L) 38.9 - 50.3 % [facility] Plt 221 150 - 400 K/cumm [facility] MPV 10.4 9.1 - 12.3 fL [facility] RBC 3.26(L) 4.30 - 5.80 M/cumm [facility] MCV 94.8 81.3 - 96.4 fL [facility] Comment:MCV delta due to mauro arent blood transfusion. MCH 32.2 27.1 - 33.3 pg [facility] MCHC 34.0 32.3 - 35.7 g/dL [facility] RDW CV 18.6(H) 11.1 - 14.9 % [facility] RDW SD 63.9(H) 35.7 - 48.1 fL [facility] NRBC abs 0.04(H) 0.00 - 0.01 K/cumm [facility] Blood 12/26/2024 1:49 AM HEARSE DRIVER 12/26/2024 2:09 AM HEARSE DRIVER Jared Davis MD LAB BLOOD ORDERABLES Final R esult [facility] [place] [employer] [place] [address] * Phosphorus (12/26/2024 1:49 AM HEARSE DRIVER) Phosphorus, pl 2.5 2.3 - 4.5 mg/dL Blood 12/26/2024 1:49 AM HEARSE DRIVER 12/26/2024 2:09 AM HEARSE DRIVER Jared Davis MD LAB BLOOD ORDERABLES Final R esult [facility] [place] [place] [address] * Magnesium (12/26/2024 1:49 AM HEARSE DRIVER) Magnesium 2.1 1.4 - 2.5 mg/dL Blood 12/26/2024 1:49 AM HEARSE DRIVER 12/26/2024 2:09 AM HEARSE DRIVER us Jared Davis MD LAB BLOOD ORDERABLES Final R esult Performing Organization Address City/[facility]/ZIP Co de Phone Number [facility] Department [place] [address] * (ABNORMAL) Hepatic function panel (12/26/2024 1:49 AM HEARSE DRIVER) Pathologist [facility] Bilirubin, total 0.3 0.1 - 1.2 mg/dL Bilirubin, direct <0.2 0.1 - 0.3 mg/dL [facility] Protein, pl 6.3(L) 6.5 - 8.5 g/dL [facility] Albumin 2.7(L) 3.5 - 5.0 g/dL [facility] Alk phos 142(H) 40 - 130 Units/L [facility] ALT 154(H) 7 - 55 Units/L [facility] AST 32 10 - 50 Units/L [facility] Blood 12/26/2024 1:49 AM HEARSE DRIVER 12/26/2024 2:09 AM HEARSE DRIVER us Kay La MD LAB BLOOD ORDERABLES Pilar l Result Performing Organization Address [facility] Co de Phone Number [facility] Department [place] [address] * (ABNORMAL) Basic metabolic panel (12/26/2024 1:49 AM HEARSE DRIVER) Sodium 142 135 - 145 mmol/L Potassium, pl 3.5 3.3 - 4.9 mmol/L [facility] Chloride 99 97 - 110 mmol/L [facility] CO2 38(H) 22 - 32 mmol/L [facility] Anion gap 5 2 - 15 mmol/L [facility] BUN 8 6 - 25 mg/dL [facility] Creatinine 0.63(L) 0.80 - 1.30 mg/dL [facility] Glucose 114 70 - 199 mg/dL [facility] Comment: Interpretive Data Fasting glucose >/= 126 mg/dl is diagnostic for diabetes. Fasting is defined as no caloric intake [...] 2022. Calcium 8.8 8.5 - 10.3 mg/dL [facility] Blood 12/26/2024 1:49 AM HEARSE DRIVER 12/26/2024 2:09 AM HEARSE DRIVER Narrative [facility] - 12/26/2024 2:39 AM HEARSE DRIVER Daily except Saturday and . Morning draw. us Jared Davis MD LAB BLOOD ORDERABLES Final R esult Performing Organization Address City/[facility] Co de Phone Number [facility] Department [place] [address] * POCT glucose (12/25/2024 8:38 PM HEARSE DRIVER) [facility] Glucose, POC 170 70 - 199 mg/dL Blood 12/25/2024 8:38 PM HEARSE DRIVER 12/25/2024 8:38 PM HEARSE DRIVER us Brody Park MD LAB POCT ORDERABLES - DEVICE Final Result [facility] Department [place] [employer] [place] [address] * Transfuse RBC (12/25/2024 6:02 PM HEARSE DRIVER) Blood us Brina Gandara MD BLOOD TRANSFUSION ORDERABLES Fin al Result Performing Organization Address [facility]/ZIP Co de Phone Number [facility] Department [place] [address] * POCT glucose (12/25/2024 4:56 PM HEARSE DRIVER) [facility] Glucose, POC 181 70 - 199 mg/dL Blood 12/25/2024 4:56 PM HEARSE DRIVER 12/25/2024 4:56 PM HEARSE DRIVER us Brody Park MD LAB POCT ORDERABLES - DEVICE Final Result Performing Organization Address [facility] Co de Phone Number [facility] [place] [address] * (ABNORMAL) CBC without differential (12/25/2024 2:40 PM HEARSE DRIVER) [facility] WBC 9.7 3.8 - 9.9 K/cumm Hgb 8.2(L) 13.0 - 17.5 g/dL [facility] Hct 24.6(L) 38.9 - 50.3 % [facility] Plt 214 150 - 400 K/cumm [facility] MPV 10.7 9.1 - 12.3 fL [facility] RBC 2.42(L) 4.30 - 5.80 M/cumm [facility] MCV 101.7(H) 81.3 - 96.4 fL [facility] MCH 33.9(H) 27.1 - 33.3 pg [facility] MCHC 33.3 32.3 - 35.7 g/dL [facility] RDW CV 14.4 11.1 - 14.9 % [facility] RDW SD 54.1(H) 35.7 - 48.1 fL [facility] NRBC abs 0.05(H) 0.00 - 0.01 K/cumm [facility] Blood 12/25/2024 2:40 PM HEARSE DRIVER 12/25/2024 3:24 PM HEARSE DRIVER us Braden Suazo MD LAB BLOOD ORDERABLES Fi nal Result Performing Organization Address City/[facility]/ZIP Co de Phone Number [facility] Department [place] [address] * Type and screen (12/25/2024 12:31 PM HEARSE DRIVER) Pathologist [facility] Ursula, indirect Negative ABO Rh A Positive [facility] Blood 12/25/2024 12:3 1 PM HEARSE DRIVER 12/25/2024 1:05 PM HEARSE DRIVER Narrative [facility] - 12/25/2024 1:50 PM HEARSE DRIVER Has the patient had Daratumumab or Isatuximab in the past 6 months?->Unknown us Braden Suazo MD LAB BLOOD BANK TEST ORD ERABLES Final Result [facility] Department [place] [address] * POCT glucose (12/25/2024 12:06 PM HEARSE DRIVER) [facility] Glucose, POC 85 70 - 199 mg/dL Blood 12/25/2024 12:0 6 PM HEARSE DRIVER 12/25/2024 12:06 PM HEARSE DRIVER us Brody Park MD LAB POCT ORDERABLES - DEVICE Final Result [facility] Department [place] [address] * Prepare RBC: 1 Units (12/25/2024 11:42 AM HEARSE DRIVER) [facility] Product code [id number] Unit Number [id number] [facility] Product Blood Type APOS [facility] Dispense Status PRESUMED TRANSFUSED [facility] Blood Venous blood specimen / Unknown 12/25/2024 11:42 AM HEARSE DRIVER 12/25/2024 11:41 AM HEARSE DRIVER Narrative [facility] - 12/26/2024 6:01 AM HEARSE DRIVER Are special requirements needed? (All products are leukoreduced and CMV- safe)- >Yes Date required:-[id number] Special Req 1:-Irradiated LRRBC # of [id number] Reasons:-BMT, Hgb <8 g/dL} Brina Gandara MD BLOOD BANK PRODUCT ORDERABLES Fi nal Result [facility] Department [place] [address] * CT Chest Abdomen Pelvis W Contrast (12/25/2024 10:16 AM HEARSE DRIVER) Anatomical Region Laterality Modality Body N/A Computed Tomogra phy 12/25/2024 10:4 0 AM HEARSE DRIVER Impressions 12/25/2024 10:40 AM HEARSE DRIVER 1. Unchanged moderate esophagitis of the mid and distal esophagus with focal impaction of an oval high attenuation object in the midesophagus likely representing a pill. There is also area secretions in the left mainstem bronchus. Slow mucosal bleeding from patient's esophagitis with aspiration may explain the patient's hemoptysis. Consider correlation with upper endoscopy as indicated. 2. Unchanged sequelae of nontuberculous mycobacterial infection as described above with numerous cavitary lesions without evidence of pseudoaneurysm. Prominent bronchial arteries are unchanged. 3. Mildly thick-walled urinary bladder, which could be seen in cystitis. Recommend correlation with urinalysis. Electronically signed by: Dominique Richmond M.D. Narrative 12/25/2024 10:40 AM HEARSE DRIVER EXAMINATION: CT CHEST ABDOMEN PELVIS W CONTRAST HISTORY: 59-year-old with hemoptysis and hematemesis and abdominal pain. 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 TECHNIQUE: Transaxial computed tomographic images of the chest, abdomen and pelvis were obtained with intravenous contrast according to the standard protocol after the uneventful administration of 68 mL Opti-Ray 350 intravenous contrast. COMPARISON: 12/19/2024 FINDINGS: Thick-walled cavities in the right lung apex are unchanged. Spiculated nodules in the right upper lobe are unchanged (series 3, image 44). There is additional tree-in-bud nodularity in the right middle lobe with chronic atelectasis and volume loss that is unchanged. Spiculated right lower lobe nodules unchanged (series 3, image 136). An additional spiculated nodule in the medial basal right lower lobe is unchanged (series 3, image 109). Scattered smaller nodules in the right lower lobe are unchanged. Scattered nodules throughout the left upper lobe with cavitary lesion in the medial left upper lobe are unchanged (series 3, image 39). A small peripheral cavitary nodule in the left upper lobe is unchanged (series 3, image 68). Cavitary nodules in the left hilum are unchanged (series 3, image 91). Multiple lingular tree-in-bud nodules are unchanged. Scattered tree-in-bud nodules in the left lower lobe are unchanged. Multiple solid nodules in the left lower lobe are unchanged. Trace left pleural effusion. No evidence of pseudoaneurysm. 1 mildly prominent right bronchial artery is seen (series 2, image 71). A mildly prominent left bronchial artery is also seen (series 2, image 69). There are secretions present in the left mainstem bronchus (series 3, image 50 with additional small secretions in the trachea, new from 12/19/2024). Normal thyroid. No supraclavicular or axillary lymphadenopathy. Gynecomastia. Left hilar lymphadenopathy is unchanged. The thoracic aorta is normal in caliber with conventional three-vessel arch. The heart size is normal without pericardial effusion. Coronary artery calcifications. There is a focal hypoattenuating lesion in the midesophagus with the configuration of an ingested pill on the sagittal (series 2, image 108 and series 5, image 74). There is diffuse esophagitis in the mid and distal esophagus with some mucosal enhancement and edema, unchanged. [Deposition but falciform ligament. No suspicious liver lesion. No biliary duct dilation. Cholecystectomy. Portal vein, superior mesenteric vein are patent. The splenic vein is atrophic. Hypoattenuating fluid collection adjacent to the pancreatic tail is unchanged and measures 3.6 x 1.3 cm. The spleen is atrophic. Normal adrenal glands. There is mild renal cortical scarring in both kidneys. No hydronephrosis or nephrolithiasis. Subcentimeter retroperitoneal lymph nodes are unchanged including a left para-aortic lymph node measuring 6 mm (series 2, image 25). There is no mesenteric lymphadenopathy. 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 Celiac, superior mesenteric, renal and inferior mesenteric arteries are patent with moderate stenosis at the superior mesenteric artery origin. There is a circumaortic left renal vein. Abdominal aorta is normal caliber with moderate calcified atherosclerosis. The urinary bladder is mildly thick-walled. Prostate is unremarkable. No pelvic lymphadenopathy or free fluid. Colonic diverticulosis. No bowel obstruction. Normal appendix. Small bowel is normal in caliber. Stomach and duodenal sweep are normal. No acute fracture or suspicious osseous lesion. Procedure Note Dominique Richmond MD - 12/25/2024 EXAMINATION: CT CHEST ABDOMEN PELVIS W CONTRAST HISTORY: 59-year-old with hemoptysis and hematemesis and abdominal pain. 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 TECHNIQUE: Transaxial computed tomographic images of the chest, abdomen and pelvis were obtained with intravenous contrast according to the standard protocol after the uneventful administration of 68 mL Opti-Ray 350 intravenous contrast. COMPARISON: 12/19/2024 FINDINGS: Thick-walled cavities in the right lung apex are unchanged. Spiculated nodules in the right upper lobe are unchanged (series 3, image 44). There is additional tree-in-bud nodularity in the right middle lobe with chronic atelectasis and volume loss that is unchanged. Spiculated right lower lobe nodules unchanged (series 3, image 136). An additional spiculated nodule in the medial basal right lower lobe is unchanged (series 3, image 109). Scattered smaller nodules in the right lower lobe are unchanged. Scattered nodules throughout the left upper lobe with cavitary lesion in the medial left upper lobe are unchanged (series 3, image 39). A small peripheral cavitary nodule in the left upper lobe is unchanged (series 3, image 68). Cavitary nodules in the left hilum are unchanged (series 3, image 91). Multiple lingular tree-in-bud nodules are unchanged. Scattered tree-in-bud nodules in the left lower lobe are unchanged. Multiple solid nodules in the left lower lobe are unchanged. Trace left pleural effusion. No evidence of pseudoaneurysm. 1 mildly prominent right bronchial artery is seen (series 2, image 71). A mildly prominent left bronchial artery is also seen (series 2, image 69). There are secretions present in the left mainstem bronchus (series 3, image 50 with additional small secretions in the trachea, new from 12/19/2024). Normal thyroid. No supraclavicular or axillary lymphadenopathy. Gynecomastia. Left hilar lymphadenopathy is unchanged. The thoracic aorta is normal in caliber with conventional three-vessel arch. The heart size is normal without pericardial effusion. Coronary artery calcifications. There is a focal hypoattenuating lesion in the midesophagus with the configuration of an ingested pill on the sagittal (series 2, image 108 and series 5, image 74). There is diffuse esophagitis in the mid and distal esophagus with some mucosal enhancement and edema, unchanged. [Deposition but falciform ligament. No suspicious liver lesion. No biliary duct dilation. Cholecystectomy. Portal vein, superior mesenteric vein are patent. The splenic vein is atrophic. Hypoattenuating fluid collection adjacent to the pancreatic tail is unchanged and measures 3.6 x 1.3 cm. The spleen is atrophic. Normal adrenal glands. There is mild renal cortical scarring in both kidneys. No hydronephrosis or nephrolithiasis. Subcentimeter retroperitoneal lymph nodes are unchanged including a left para-aortic lymph node measuring 6 mm (series 2, image 25). There is no mesenteric lymphadenopathy. 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 Celiac, superior mesenteric, renal and inferior mesenteric arteries are patent with moderate stenosis at the superior mesenteric artery origin. There is a circumaortic left renal vein. Abdominal aorta is normal caliber with moderate calcified atherosclerosis. The urinary bladder is mildly thick-walled. Prostate is unremarkable. No pelvic lymphadenopathy or free fluid. Colonic diverticulosis. No bowel obstruction. Normal appendix. Small bowel is normal in caliber. Stomach and duodenal sweep are normal. No acute fracture or suspicious osseous lesion. IMPRESSION: 1. Unchanged moderate esophagitis of the mid and distal esophagus with focal impaction of an oval high attenuation object in the midesophagus likely representing a pill. There is also area secretions in the left mainstem bronchus. Slow mucosal bleeding from patient's esophagitis with aspiration may explain the patient's hemoptysis. Consider correlation with upper endoscopy as indicated. 2. Unchanged sequelae of nontuberculous mycobacterial infection as described above with numerous cavitary lesions without evidence of pseudoaneurysm. Prominent bronchial arteries are unchanged. 3. Mildly thick-walled urinary bladder, which could be seen in cystitis. Recommend correlation with urinalysis. Electronically signed by: Dominique Richmond M.D. us Braden Suazo MD IMG CT PROCEDURES Final Result * (ABNORMAL) Aerobic culture and gram stain Sputum Sputum (12/25/2024 10:13 AM HEARSE DRIVER) Direct Specimen Exam Stain: Few polymorphonuclear leukocytes seen. Few squamous epithelial cells seen. Abundant mixed bacterial oscar seen on Gram stain. Report Final Report: Abundant Klebsiella pneumoniae For susceptibility results, refer to accession number [id number] on the Sputum culture from 12-23-2024 Plus growth of clinically insignificant bacterial oscar. (.) [facility] Organism KLEBSIELLA PNEUMONIAE [facility] Organism PLUS GROWTH OF CLINICALLY INSIGNIFICANT OSCAR. [facility] Sputum (Sputum) 12/25/2024 1 0:13 AM HEARSE DRIVER 12/25/2024 12:17 PM HEARSE DRIVER Narrative [facility] - 12/27/2024 10:10 AM HEARSE DRIVER Testing performed by [facility] ([phone]) Specimens submitted from normally sterile body sites will have all bacterial morphotypes identified. Specimens that contain grossly mixed oscar and/or are from body sites that are not normally sterile will be examined for Staphylococcus aureus, Pseudomonas aeruginosa, beta-hemolytic strep, vancomycin-resistant Enterococcus and fungus. If any of these are isolated, the organism will be reported. Current interpretive data was last revised on 2017. us Braden Suazo MD LAB MICROBIOLOGY - [facility] ORDERABLES Final Result [facility] Department [place] [address] * XR Chest 1 View (12/25/2024 8:53 AM HEARSE DRIVER) Anatomical Region Laterality Modality Body, Chest N/A Computed Radiogr aphy 12/25/2024 9:42 AM HEARSE DRIVER Impressions 12/25/2024 10:06 AM HEARSE DRIVER FINDINGS/IMPRESSION: Again noted is opacity at the right lung apex with cavitary portion that appears similar to multiple prior radiographs and is also evaluated on CT from 12/19/2024, compatible with classic Mycobacterium avium complex. Airspace opacities at the left lower lung appear similar to prior exam concerning for mycobacterial infection as seen on CT. No pleural effusion or pneumothorax. Cardiomediastinal silhouette is stable. Dictated by: Jaskaran Pan MD The radiology attending physician has personally reviewed this study, and had reviewed and/or edited this written report and agrees with it. Electronically signed by: Celso Olivera MD, PHD Narrative 12/25/2024 10:06 AM HEARSE DRIVER EXAMINATION: XR CHEST 1 VIEW HISTORY: pna COMPARISON: X-ray from 12/21/2024 Procedure Note Celso Olivera MD PhD - 12/25/2024 EXAMINATION: XR CHEST 1 VIEW HISTORY: pna COMPARISON: X-ray from 12/21/2024 IMPRESSION: FINDINGS/IMPRESSION: Again noted is opacity at the right lung apex with cavitary portion that appears similar to multiple prior radiographs and is also evaluated on CT from 12/19/2024, compatible with classic Mycobacterium avium complex. Airspace opacities at the left lower lung appear similar to prior exam concerning for mycobacterial infection as seen on CT. No pleural effusion or pneumothorax. Cardiomediastinal silhouette is stable. Dictated by: Jaskaran Pan MD The radiology attending physician has personally reviewed this study, and had reviewed and/or edited this written report and agrees with it. Electronically signed by: Celso Olivera MD, PHD us Braden Suazo MD IMG XR PROCEDURES Final Result * POCT glucose (12/25/2024 7:46 AM HEARSE DRIVER) [facility] Signature Glucose, POC 84 70 - 199 mg/dL Blood 12/25/2024 7:46 AM HEARSE DRIVER 12/25/2024 7:46 AM HEARSE DRIVER us Brody Park MD LAB POCT ORDERABLES - DEVICE Final Result [facility] Department [place] [address] * eGFR (12/25/2024 2:29 AM HEARSE DRIVER) [facility] eGFR >90 >=60 mL/min/1. 73 m2 Comment: Interpretive Data Reference Interval Normal >/= 90 mL/min/1.73m2 Mildly decreased* 60 - 89 mL/min/1.73m2 Mildly to moderately decreased 45 - 59 mL/min/1.73m2 Moderately to severely decreased 30 - 44 mL/min/1.73m2 Severely decreased 15 - 29 mL/min/1.73m2 Kidney Failure < 15 mL/min/1.73m2 *Relative to young adult level Estimated glomerular [...] interpretive data was last reviewed 2021. Blood 12/25/2024 2:29 AM HEARSE DRIVER 12/25/2024 2:44 AM HEARSE DRIVER us Jared Davis MD LAB BLOOD ORDERABLES Final R esult [facility] Department [place] [address] * (ABNORMAL) Manual Differential (12/25/2024 2:29 AM HEARSE DRIVER) [facility] Differential Manual Cells Counted 117 [facility] Neutrophil abs 4.5 1.5 - 6.5 K/cumm [facility] Imm gran abs 0.0 0.0 - 0.1 K/cumm [facility] Lymphocyte abs 2.9 0.8 - 3.3 K/cumm [facility] Monocyte abs 0.6 0.2 - 0.8 K/cumm [facility] Eosinophil abs 0.2 0.0 - 0.5 K/cumm [facility] Basophil abs 0.1 0.0 - 0.1 K/cumm [facility] Neutrophil pct 53.8 % [facility] Comment: Interpretive Data Percent cell count reference ranges are not reported, since discordance with absolute values may lead to misinterpretation of CBC data. Current Interpretive Data was last revised on 2018. Lymphocyte pct 34.2 % [facility] Comment: Interpretive Data Percent cell count reference ranges are not reported, since discordance with absolute values may lead to misinterpretation of CBC data. Current Interpretive Data was last revised on 2018. Monocyte pct 7.7 % [facility] Comment: Interpretive Data Percent cell count reference ranges are not reported, since discordance with absolute values may lead to misinterpretation of CBC data. Current Interpretive Data was last revised on 2018. Eosinophil pct 2.6 % [facility] Comment: Interpretive Data Percent cell count reference ranges are not reported, since discordance with absolute values may lead to misinterpretation of CBC data. Current Interpretive Data was last revised on 2018. Basophil pct 1.7 % [facility] Comment: Interpretive Data Percent cell count reference ranges are not reported, since discordance with absolute values may lead to misinterpretation of CBC data. Current Interpretive Data was last revised on 2018. RBC morphology Present(A) [facility] Anisocytosis Marked(A) [facility] Macrocytes > 15/HPF(A) [facility] Platelet estimate Adequate [facility] Blood 12/25/2024 2:29 AM HEARSE DRIVER 12/25/2024 2:44 AM HEARSE DRIVER Jared Davis MD LAB BLOOD ORDERABLES Edited Result - Final [facility] Department [place] [address] * (ABNORMAL) CBC without differential (12/25/2024 2:29 AM HEARSE DRIVER) WBC 8.4 3.8 - 9.9 K/cumm Hgb 8.4(L) 13.0 - 17.5 g/dL [facility] Hct 25.1(L) 38.9 - 50.3 % [facility] Plt 208 150 - 400 K/cumm [facility] MPV 10.8 9.1 - 12.3 fL [facility] RBC 2.47(L) 4.30 - 5.80 M/cumm [facility] MCV 101.6(H) 81.3 - 96.4 fL [facility] MCH 34.0(H) 27.1 - 33.3 pg [facility] MCHC 33.5 32.3 - 35.7 g/dL [facility] RDW CV 14.6 11.1 - 14.9 % [facility] RDW SD 54.4(H) 35.7 - 48.1 fL [facility] NRBC abs 0.03(H) 0.00 - 0.01 K/cumm [facility] Blood 12/25/2024 2:29 AM HEARSE DRIVER 12/25/2024 2:44 AM HEARSE DRIVER us Jared Davis MD LAB BLOOD ORDERABLES Final R esult Performing Organization Address City/[facility] Co de Phone Number [facility] Department of [place] [address] * (ABNORMAL) Phosphorus (12/25/2024 2:29 AM HEARSE DRIVER) Phosphorus, pl 2.2(L) 2.3 - 4.5 mg/dL Blood 12/25/2024 2:29 AM HEARSE DRIVER 12/25/2024 2:44 AM HEARSE DRIVER us Jared Davis MD LAB BLOOD ORDERABLES Final R esult [facility] [place] [address] * Magnesium (12/25/2024 2:29 AM HEARSE DRIVER) Magnesium 1.5 1.4 - 2.5 mg/dL Blood 12/25/2024 2:29 AM HEARSE DRIVER 12/25/2024 2:44 AM HEARSE DRIVER us Jared Davis MD LAB BLOOD ORDERABLES Final R esult Performing Organization Address [facility]/ZIP Co de Phone Number [facility] [place] [address] * (ABNORMAL) Hepatic function panel (12/25/2024 2:29 AM HEARSE DRIVER) [facility] Bilirubin, total 0.3 0.1 - 1.2 mg/dL Bilirubin, direct See Comment 0.1 - 0.3 mg/dL [facility] Comment:Credited; Hemolyzed Specimen Protein, pl 6.0(L) 6.5 - 8.5 g/dL [facility] Albumin 2.4(L) 3.5 - 5.0 g/dL [facility] Alk phos 132(H) 40 - 130 Units/L [facility] ALT 174(H) 7 - 55 Units/L [facility] AST 38 10 - 50 Units/L [facility] Comment:Hemolyzed; result ma y be falsely elevated Blood 12/25/2024 2:29 AM HEARSE DRIVER 12/25/2024 2:44 AM HEARSE DRIVER Kay La MD LAB BLOOD ORDERABLES Pilar l Result Performing Organization Address [facility] de Phone Number [facility] [place] [address] * (ABNORMAL) Basic metabolic panel (12/25/2024 2:29 AM HEARSE DRIVER) [facility] Sodium 137 135 - 145 mmol/L Potassium, pl 4.1 3.3 - 4.9 mmol/L [facility] Comment:Hemolyzed; Potassium value may be falsely elevated by as much as 0.6-1.0 mmol/L. Suggest redraw and reanalysis. Chloride 96(L) 97 - 110 mmol/L [facility] CO2 35(H) 22 - 32 mmol/L [facility] Anion gap 6 2 - 15 mmol/L [facility] BUN 8 6 - 25 mg/dL [facility] Creatinine 0.59(L) 0.80 - 1.30 mg/dL [facility] Glucose 85 70 - 199 mg/dL [facility] Comment: Interpretive Data Fasting glucose >/= 126 mg/dl is diagnostic for diabetes. Fasting is defined as no caloric intake [...] 2022. Calcium 8.2(L) 8.5 - 10.3 mg/dL [facility] Blood 12/25/2024 2:29 AM HEARSE DRIVER 12/25/2024 2:44 AM HEARSE DRIVER Narrative [facility] - 12/25/2024 4:22 AM HEARSE DRIVER Daily except Saturday and . Morning draw. us Jared Davis MD LAB BLOOD ORDERABLES Final R esult Performing Organization Address City/[facility]/ZIP Co de Phone Number [facility] Department [place] [employer] [place] [address] * (ABNORMAL) POCT glucose (12/24/2024 10:35 PM HEARSE DRIVER) Glucose, POC 214(H) 70 - 199 mg/dL Blood 12/24/2024 10:3 5 PM HEARSE DRIVER 12/24/2024 10:35 PM HEARSE DRIVER us Brody Park MD LAB POCT ORDERABLES - DEVICE Final Result [facility] [place] [employer] [place] [address] * POCT glucose (12/24/2024 10:09 PM HEARSE DRIVER) Glucose, POC 78 70 - 199 mg/dL Blood 12/24/2024 10:0 9 PM HEARSE DRIVER 12/24/2024 10:09 PM HEARSE DRIVER us Brody Park MD LAB POCT ORDERABLES - DEVICE Final Result Performing Organization Address [facility] [place] [address] * POCT glucose (12/24/2024 8:02 PM HEARSE DRIVER) Glucose, POC 86 70 - 199 mg/dL Blood 12/24/2024 8:02 PM HEARSE DRIVER 12/24/2024 8:02 PM HEARSE DRIVER us Brody Park MD LAB POCT ORDERABLES - DEVICE Final Result Performing Organization Address [facility] [place] [address] * POCT glucose (12/24/2024 5:45 PM HEARSE DRIVER) Glucose, POC 76 70 - 199 mg/dL Blood 12/24/2024 5:45 PM HEARSE DRIVER 12/24/2024 5:45 PM HEARSE DRIVER us Brody Park MD LAB POCT ORDERABLES - DEVICE Final Result Performing Organization Address [facility] [place] [address] * (ABNORMAL) POCT glucose (12/24/2024 5:19 PM HEARSE DRIVER) Glucose, POC 66(L) 70 - 199 mg/dL Comment:Glu2: RN/MD Notified Glucose comment 1 Glu2: RN/MD Notified [facility] Blood 12/24/2024 5:19 PM HEARSE DRIVER 12/24/2024 5:19 PM HEARSE DRIVER us Brody Park MD LAB POCT ORDERABLES - DEVICE Final Result Performing Organization Address [facility] Co de Phone Number [facility] [place] [employer] [place] [address] * (ABNORMAL) Protime-INR (12/24/2024 2:44 PM HEARSE DRIVER) PT 21.9(H) 9.7 - 13.0 sec INR 2.00(H) 0.90 - 1.20 [facility] Comment: Interpretive data Oral anticoagulant therapeutic ranges: Venous thromboembolism prophylaxis or treatment: 2.0-3.0 CARDIOLOGY Standard range: 2.0-3.0 High-intensity range: 2.5-3.5 Refer to indication-specific guidelines for appropriate target ranges for prosthetic heart valve replacement. Current interpretive data was last revised on 2019. Blood 12/24/2024 2:44 PM HEARSE DRIVER 12/24/2024 3:41 PM HEARSE DRIVER us Braden Suazo MD LAB BLOOD ORDERABLES Fi nal Result Performing Organization Address [facility] [place] [address] * POCT glucose (12/24/2024 12:10 PM HEARSE DRIVER) Glucose, POC 73 70 - 199 mg/dL Blood 12/24/2024 12:1 0 PM HEARSE DRIVER 12/24/2024 12:10 PM HEARSE DRIVER us Brody Park MD LAB POCT ORDERABLES - DEVICE Final Result Performing Organization Address [facility] Co de Phone Number [facility] [employer] [place] [address] * POCT glucose (12/24/2024 7:45 AM HEARSE DRIVER) Glucose, POC 72 70 - 199 mg/dL Blood 12/24/2024 7:45 AM HEARSE DRIVER 12/24/2024 7:45 AM HEARSE DRIVER Brody Park MD LAB POCT ORDERABLES - DEVICE Final Result Performing Organization Address [facility] Co de Phone Number [facility] [place] [address] * (ABNORMAL) ALT (12/24/2024 6:38 AM HEARSE DRIVER) ALT 202(H) 7 - 55 Units/L Blood 12/24/2024 6:38 AM HEARSE DRIVER 12/24/2024 6:48 AM HEARSE DRIVER us Joy Osorio MD LAB BLOOD ORDERABLES F inal Result Performing Organization Address [facility] Co de Phone Number [facility] [place] [address] * AST (12/24/2024 6:38 AM HEARSE DRIVER) AST 35 10 - 50 Units/L Blood 12/24/2024 6:38 AM HEARSE DRIVER 12/24/2024 6:48 AM HEARSE DRIVER us Joy Osorio MD LAB BLOOD ORDERABLES F inal Result Performing Organization Address [facility] Co de Phone Number [facility] [place] [address] * Potassium (12/24/2024 6:38 AM HEARSE DRIVER) Potassium, pl 3.5 3.3 - 4.9 mmol/L Blood 12/24/2024 6:38 AM HEARSE DRIVER 12/24/2024 6:48 AM HEARSE DRIVER us Joy Osorio MD LAB BLOOD ORDERABLES F inal Result Performing Organization Address [facility] Co de Phone Number [facility] [place] [address] * eGFR (12/24/2024 2:36 AM HEARSE DRIVER) [facility] eGFR >90 >=60 mL/min/1. 73 m2 Comment: Interpretive Data Reference Interval Normal >/= 90 mL/min/1.73m2 Mildly decreased* 60 - 89 mL/min/1.73m2 Mildly to moderately decreased 45 - 59 mL/min/1.73m2 Moderately to severely decreased 30 - 44 mL/min/1.73m2 Severely decreased 15 - 29 mL/min/1.73m2 Kidney Failure < 15 mL/min/1.73m2 *Relative to young adult level Estimated glomerular [...] interpretive data was last reviewed 2021. Blood 12/24/2024 2:36 AM HEARSE DRIVER 12/24/2024 2:59 AM HEARSE DRIVER Jared Davis MD LAB BLOOD ORDERABLES Final R esult [facility] [place] [address] * (ABNORMAL) Manual Differential (12/24/2024 2:36 AM HEARSE DRIVER) [facility] Differential Manual Cells Counted [facility] Neutrophil abs 3.2 1.5 - 6.5 K/cumm [facility] Imm gran abs 0.0 0.0 - 0.1 K/cumm [facility] Lymphocyte abs 6.2(H) 0.8 - 3.3 K/cumm [facility] Monocyte abs 0.7 0.2 - 0.8 K/cumm [facility] Eosinophil abs 0.1 0.0 - 0.5 K/cumm [facility] Neutrophil pct 31.6 % [facility] Comment: Interpretive Data Percent cell count reference ranges are not reported, since discordance with absolute values may lead to misinterpretation of CBC data. Current Interpretive Data was last revised on 2018. Lymphocyte pct 60.7 % [facility] Comment: Interpretive Data Percent cell count reference ranges are not reported, since discordance with absolute values may lead to misinterpretation of CBC data. Current Interpretive Data was last revised on 2018. Monocyte pct 6.8 % [facility] Comment: Interpretive Data Percent cell count reference ranges are not reported, since discordance with absolute values may lead to misinterpretation of CBC data. Current Interpretive Data was last revised on 2018. Eosinophil pct 0.9 % [facility] Comment: Interpretive Data Percent cell count reference ranges are not reported, since discordance with absolute values may lead to misinterpretation of CBC data. Current Interpretive Data was last revised on 2018. RBC morphology Present [facility] Anisocytosis MODERATE [facility] Macrocytes 8-15/HPF(A) [facility] Platelet estimate Adequate [facility] Comment:made albumin Blood 12/24/2024 2:36 AM HEARSE DRIVER 12/24/2024 2:59 AM HEARSE DRIVER Jared Davis MD LAB BLOOD ORDERABLES Final R esult [facility] [place] [address] * (ABNORMAL) CBC without differential (12/24/2024 2:36 AM HEARSE DRIVER) WBC 10.3(H) 3.8 - 9.9 K/cumm Hgb 10.4(L) 13.0 - 17.5 g/dL [facility] Hct 31.4(L) 38.9 - 50.3 % [facility] Plt 225 150 - 400 K/cumm [facility] MPV 11.3 9.1 - 12.3 fL [facility] RBC 3.08(L) 4.30 - 5.80 M/cumm [facility] MCV 101.9(H) 81.3 - 96.4 fL [facility] MCH 33.8(H) 27.1 - 33.3 pg [facility] MCHC 33.1 32.3 - 35.7 g/dL [facility] RDW CV 14.7 11.1 - 14.9 % [facility] RDW SD 54.8(H) 35.7 - 48.1 fL [facility] NRBC abs 0.03(H) 0.00 - 0.01 K/cumm [facility] Blood 12/24/2024 2:36 AM HEARSE DRIVER 12/24/2024 2:59 AM HEARSE DRIVER Jared Davis MD LAB BLOOD ORDERABLES Final R ult Performing Organization Address City/[facility] Co de Phone Number [facility] [place] [address] * Uric acid (12/24/2024 2:36 AM HEARSE DRIVER) [facility] Uric acid 3.0 3.0 - 8.0 mg/dL Blood 12/24/2024 2:36 AM HEARSE DRIVER 12/24/2024 2:59 AM HEARSE DRIVER Narrative [facility] - 12/24/2024 3:37 AM HEARSE DRIVER Saturday and only. Morning draw. . Jared Davis MD LAB BLOOD ORDERABLES Final R esult [facility] [place] [address] * (ABNORMAL) Phosphorus (12/24/2024 2:36 AM HEARSE DRIVER) Phosphorus, pl 2.2(L) 2.3 - 4.5 mg/dL Comment:Hemolyzed; result ma y be falsely elevated Blood 12/24/2024 2:36 AM HEARSE DRIVER 12/24/2024 2:59 AM HEARSE DRIVER Jared Davis MD LAB BLOOD ORDERABLES Final R esult Performing Organization Address [facility] Co de Phone Number [facility] [place] [employer] [place] [address] * (ABNORMAL) Magnesium (12/24/2024 2:36 AM HEARSE DRIVER) Magnesium 1.3(L) 1.4 - 2.5 mg/dL Blood 12/24/2024 2:36 AM HEARSE DRIVER 12/24/2024 2:59 AM HEARSE DRIVER Jared Davis MD LAB BLOOD ORDERABLES Final R esult Performing Organization Address [facility] de Phone Number [facility] [place] [place] [address] * Lactate dehydrogenase (LD) (12/24/2024 2:36 AM HEARSE DRIVER) Lactate dehydrogenase (LDH) See Comment 100 - 250 Units/L Comment: Credited; Hemolyzed Specimen Telephone report made to: JENNA CHOW RN on 12/24/2024 03:44:49 HEARSE DRIVER by EW Unable to calculate exact result. Blood 12/24/2024 2:36 AM HEARSE DRIVER 12/24/2024 2:59 AM HEARSE DRIVER Narrative [facility] - 12/24/2024 3:45 AM HEARSE DRIVER Saturday and only. Morning draw. Jared Davis MD LAB BLOOD ORDERABLES Final R esult Performing Organization Address [facility] Co de Phone Number [facility] [employer] [place] [address] * Bilirubin, direct (12/24/2024 2:36 AM HEARSE DRIVER) Bilirubin, direct See Comment 0.1 - 0.3 mg/dL Comment:Credited; Hemolyzed Specimen Blood 12/24/2024 2:36 AM HEARSE DRIVER 12/24/2024 2:59 AM HEARSE DRIVER us Jared Davis MD LAB BLOOD ORDERABLES Final R esult [facility] [place] [address] * (ABNORMAL) Comprehensive metabolic panel (12/24/2024 2:36 AM HEARSE DRIVER) Sodium 137 135 - 145 mmol/L Potassium, pl See Comment 3.3 - 4.9 mmol/L [facility] Comment:Credited; Hemolyzed Specimen Chloride 98 97 - 110 mmol/L [facility] CO2 34(H) 22 - 32 mmol/L [facility] Anion gap 5 2 - 15 mmol/L [facility] BUN 6 6 - 25 mg/dL [facility] Creatinine 0.61(L) 0.80 - 1.30 mg/dL [facility] Glucose 82 70 - 199 mg/dL [facility] Comment: Interpretive Data Fasting glucose >/= 126 mg/dl is diagnostic for diabetes. Fasting is defined as no caloric intake [...] 2022. Calcium 8.6 8.5 - 10.3 mg/dL [facility] Bilirubin, total 0.3 0.1 - 1.2 mg/dL [facility] Protein, pl 6.9 6.5 - 8.5 g/dL [facility] Albumin 3.0(L) 3.5 - 5.0 g/dL [facility] Alk phos 158(H) 40 - 130 Units/L [facility] Comment:Hemolyzed; result ma y be falsely decreased ALT See Comment 7 - 55 Units/L [facility] Comment:Credited; Hemolyzed Specimen AST See Comment 10 - 50 Units/L [facility] Comment:Credited; Hemolyzed Specimen Blood 12/24/2024 2:36 AM HEARSE DRIVER 12/24/2024 2:59 AM HEARSE DRIVER Narrative [facility] - 12/24/2024 3:37 AM HEARSE DRIVER Saturday and only. Morning draw. Jared Davis MD LAB BLOOD ORDERABLES Final R esult Performing Organization Address City/[facility] Co de Phone Number [facility] [place] [address] * (ABNORMAL) Aerobic culture and gram stain Sputum Sputum (12/23/2024 8:49 PM HEARSE DRIVER) Direct Specimen Exam Stain: Abundant polymorphonuclear leukocytes seen. Few squamous epithelial cells seen. Abundant mixed bacterial oscar seen on Gram stain. Report Final Report: Moderate Klebsiella pneumoniae (.) [facility] Organism KLEBSIELLA PNEUMONIAE [facility] Sputum (Sputum) 12/23/2024 8 :49 PM HEARSE DRIVER 12/23/2024 10:19 PM HEARSE DRIVER Narrative [facility] - 12/27/2024 10:10 AM HEARSE DRIVER Testing performed by [facility] ([phone]) Specimens submitted from normally sterile body sites will have all bacterial morphotypes identified. Specimens that contain grossly mixed oscar and/or are from body sites that are not normally sterile will be examined for Staphylococcus aureus, Pseudomonas aeruginosa, beta-hemolytic strep, vancomycin-resistant Enterococcus and fungus. If any of these are isolated, the organism will be reported. Current interpretive data was last revised on 2017. Organism Antibiotic Method Susceptibility Klebsiella pneumoniae Ampicillin INTERPRETATION Resistant Klebsiella pneumoniae Cefazolin INTERPRETATION Susceptible Klebsiella pneumoniae Gentamicin INTERPRETATION Susceptible Klebsiella pneumoniae Ampicillin with Sulbactam INTERP RETATION Susceptible Klebsiella pneumoniae Trimethoprim with Sulfamethoxazole INTERPRETATION Susceptible Klebsiella pneumoniae Meropenem INTERPRETATION Susceptible Klebsiella pneumoniae Cefepime INTERPRETATION Susceptible Klebsiella pneumoniae Ciprofloxacin INTERPRETATION Susceptible Klebsiella pneumoniae Ceftazidime INTERPRETATION Susceptible Klebsiella pneumoniae Ceftriaxone INTERPRETATION Susceptible Klebsiella pneumoniae Piperacillin/Tazobactam INTERPRE TATION Intermediate Kay La MD LAB MICROBIOLOGY - GENERA L ORDERABLES Final Result [facility] [employer] [place] [address] * POCT glucose (12/23/2024 8:11 PM HEARSE DRIVER) Glucose, POC 95 70 - 199 mg/dL Blood 12/23/2024 8:11 PM HEARSE DRIVER 12/23/2024 8:11 PM HEARSE DRIVER us Brody Park MD LAB POCT ORDERABLES - DEVICE Final Result Performing Organization Address [facility] Co de Phone Number [facility] [employer] [place] [address] * POCT glucose (12/23/2024 5:11 PM HEARSE DRIVER) Glucose, POC 97 70 - 199 mg/dL Blood 12/23/2024 5:11 PM HEARSE DRIVER 12/23/2024 5:11 PM HEARSE DRIVER us Brody Park MD LAB POCT ORDERABLES - DEVICE Final Result Performing Organization Address [facility] Co de Phone Number [facility] Department [place] [place] [address] * POCT glucose (12/23/2024 12:26 PM HEARSE DRIVER) Glucose, POC 97 70 - 199 mg/dL Blood 12/23/2024 12:2 6 PM HEARSE DRIVER 12/23/2024 12:26 PM HEARSE DRIVER us Brody Park MD LAB POCT ORDERABLES - DEVICE Final Result Performing Organization Address City/[facility] Co de Phone Number [facility] [place] [address] * eGFR (12/23/2024 9:47 AM HEARSE DRIVER) eGFR >90 >=60 mL/min/1. 73 m2 Comment: Interpretive Data Reference Interval Normal >/= 90 mL/min/1.73m2 Mildly decreased* 60 - 89 mL/min/1.73m2 Mildly to moderately decreased 45 - 59 mL/min/1.73m2 Moderately to severely decreased 30 - 44 mL/min/1.73m2 Severely decreased 15 - 29 mL/min/1.73m2 Kidney Failure < 15 mL/min/1.73m2 *Relative to young adult level Estimated glomerular [...] interpretive data was last reviewed 2021. Blood 12/23/2024 9:47 AM HEARSE DRIVER 12/23/2024 9:57 AM HEARSE DRIVER us Braden Suazo MD LAB BLOOD ORDERABLES Fi nal Result [facility] [place] [address] * (ABNORMAL) aPTT (12/23/2024 9:47 AM HEARSE DRIVER) aPTT 45(H) 28 - 38 sec Comment: Interpretive Data Heparin therapeutic range: 66.0 - 100.0 seconds. Range based on correlation with therapeutic heparin activity range of 0.3 - 0.7 Units/mL. Current interpretive data was last revised on 2023. Blood 12/23/2024 9:47 AM HEARSE DRIVER 12/23/2024 10:02 AM HEARSE DRIVER Narrative [facility] - 12/23/2024 10:25 AM HEARSE DRIVER Baseline prior to enoxaparin initiation. Braden Suazo MD LAB BLOOD ORDERABLES Fi nal Result [facility] [place] [address] * (ABNORMAL) Protime-INR (12/23/2024 9:47 AM HEARSE DRIVER) Pathologist [facility] PT 19.2(H) 9.7 - 13.0 sec INR 1.76(H) 0.90 - 1.20 [facility] Comment: Interpretive data Oral anticoagulant therapeutic ranges: Venous thromboembolism prophylaxis or treatment: 2.0-3.0 CARDIOLOGY Standard range: 2.0-3.0 High-intensity range: 2.5-3.5 Refer to indication-specific guidelines for appropriate target ranges for prosthetic heart valve replacement. Current interpretive data was last revised on 2019. Blood 12/23/2024 9:47 AM HEARSE DRIVER 12/23/2024 10:02 AM HEARSE DRIVER Narrative [facility] - 12/23/2024 10:25 AM HEARSE DRIVER Baseline prior to enoxaparin initiation. Braden Larry Suazo MD LAB BLOOD ORDERABLES nal Result Performing Organization Address [facility] Co de Phone Number [facility] [place] [address] * (ABNORMAL) CBC without differential (12/23/2024 9:47 AM HEARSE DRIVER) [facility] WBC 10.2(H) 3.8 - 9.9 K/cumm Hgb 10.5(L) 13.0 - 17.5 g/dL [facility] Hct 31.6(L) 38.9 - 50.3 % [facility] Plt 287 150 - 400 K/cumm [facility] MPV 10.7 9.1 - 12.3 fL [facility] RBC 3.14(L) 4.30 - 5.80 M/cumm [facility] MCV 100.6(H) 81.3 - 96.4 fL [facility] MCH 33.4(H) 27.1 - 33.3 pg [facility] MCHC 33.2 32.3 - 35.7 g/dL [facility] RDW CV 14.6 11.1 - 14.9 % [facility] RDW SD 53.0(H) 35.7 - 48.1 fL [facility] NRBC abs 0.03(H) 0.00 - 0.01 K/cumm [facility] Blood 12/23/2024 9:47 AM HEARSE DRIVER 12/23/2024 9:57 AM HEARSE DRIVER Narrative [facility] - 12/23/2024 10:05 AM HEARSE DRIVER Baseline prior to enoxaparin initiation. Braden Suazo MD LAB BLOOD ORDERABLES Fi nal Result Performing Organization Address City/[facility]/ZIP Co de Phone Number [facility] [place] [address] * (ABNORMAL) Creatinine (12/23/2024 9:47 AM HEARSE DRIVER) Creatinine 0.66(L) 0.80 - 1.30 mg/dL Blood 12/23/2024 9:47 AM HEARSE DRIVER 12/23/2024 9:57 AM HEARSE DRIVER Narrative [facility] - 12/23/2024 10:28 AM HEARSE DRIVER Baseline prior to enoxaparin initiation. Braden Suazo MD LAB BLOOD ORDERABLES Fi nal Result Performing Organization Address City/[facility]/ZIP Co de Phone Number [facility] [place] [address] * POCT glucose (12/23/2024 7:25 AM HEARSE DRIVER) Glucose, POC 168 70 - 199 mg/dL Blood 12/23/2024 7:25 AM HEARSE DRIVER 12/23/2024 7:25 AM HEARSE DRIVER Brody Park MD LAB POCT ORDERABLES - DEVICE Final Result Performing Organization Address City/[facility] Co de Phone Number [facility] [place] [address] * C. difficile testing Stool (12/23/2024 3:48 AM HEARSE DRIVER) [facility] Result Negative Negative Toxin Result Negative Negative [facility] C. diff result Negative, free toxin Negative, free toxin [facility] C. diff interp Negative for toxigenic Clostridioides (Clostridium) difficile. Analysis was performed using a glutamate dehydrogenase antigen detection assay combined with a C. difficile toxin detection assay. [facility] Stool 12/23/2024 3:48 AM HEARSE DRIVER 12/23/2024 4:56 AM HEARSE DRIVER us Braden Suazo MD LAB MICROBIOLOGY - GENE RAL ORDERABLES Final Result Performing Organization Address [facility]/ZIP [place] [address] * (ABNORMAL) Infection Prevention VRE Culture Stool (12/23/2024 3:47 AM HEARSE DRIVER) Pathologist [facility] Report Final Report: Enterococcus species, vancomycin resistant (.) Organism ENTEROCOCCUS SPECIES, VANCOMYCIN RESISTANT [facility] Stool 12/23/2024 3:47 AM HEARSE DRIVER 12/23/2024 5:32 AM HEARSE DRIVER Narrative [facility] - 12/25/2024 7:17 AM HEARSE DRIVER Surveillance culture for Infection Prevention purposes only; results indicate colonization, not infection requiring treatment. Testing performed by [facility] ([phone]). us Brody Park MD LAB MICROBIOLOGY - GENERAL O RDERABLES Final Result [facility] [place] [address] * eGFR (12/23/2024 3:38 AM HEARSE DRIVER) [facility] eGFR >90 >=60 mL/min/1. 73 m2 Comment: Interpretive Data Reference Interval Normal >/= 90 mL/min/1.73m2 Mildly decreased* 60 - 89 mL/min/1.73m2 Mildly to moderately decreased 45 - 59 mL/min/1.73m2 Moderately to severely decreased 30 - 44 mL/min/1.73m2 Severely decreased 15 - 29 mL/min/1.73m2 Kidney Failure < 15 mL/min/1.73m2 *Relative to young adult level Estimated glomerular [...] interpretive data was last reviewed 2021. Blood 12/23/2024 3:38 AM HEARSE DRIVER 12/23/2024 4:12 AM HEARSE DRIVER Jared Davis MD LAB BLOOD ORDERABLES Final R esult [facility] Department [place] [address] * (ABNORMAL) Manual Differential (12/23/2024 3:38 AM HEARSE DRIVER) Differential Manual Cells Counted 115 [facility] Neutrophil abs 1.0(L) 1.5 - 6.5 K/cumm [facility] Imm gran abs 0.0 0.0 - 0.1 K/cumm [facility] Lymphocyte abs 5.8(H) 0.8 - 3.3 K/cumm [facility] Monocyte abs 0.4 0.2 - 0.8 K/cumm [facility] Eosinophil abs 0.3 0.0 - 0.5 K/cumm [facility] Basophil abs 0.1 0.0 - 0.1 K/cumm [facility] Neutrophil pct 13.0 % [facility] Comment: Interpretive Data Percent cell count reference ranges are not reported, since discordance with absolute values may lead to misinterpretation of CBC data. Current Interpretive Data was last revised on 2018. Lymphocyte pct 76.6 % [facility] Comment: Interpretive Data Percent cell count reference ranges are not reported, since discordance with absolute values may lead to misinterpretation of CBC data. Current Interpretive Data was last revised on 2018. Monocyte pct 5.2 % [facility] Comment: Interpretive Data Percent cell count reference ranges are not reported, since discordance with absolute values may lead to misinterpretation of CBC data. Current Interpretive Data was last revised on 2018. Eosinophil pct 4.3 % [facility] Comment: [...] morphology Present(A) [facility] Anisocytosis Moderate(A) [facility] Macrocytes 8-15/HPF(A) [facility] Platelet estimate Adequate [facility] Blood 12/23/2024 3:38 AM HEARSE DRIVER 12/23/2024 4:12 AM HEARSE DRIVER Jared Davis MD LAB BLOOD ORDERABLES Edited Result - Final [facility] Department [place] [address] * (ABNORMAL) CBC without differential (12/23/2024 3:38 AM HEARSE DRIVER) WBC 7.6 3.8 - 9.9 K/cumm Hgb 8.0(L) 13.0 - 17.5 g/dL [facility] Hct 24.0(L) 38.9 - 50.3 % [facility] Plt 269 150 - 400 K/cumm [facility] MPV 10.7 9.1 - 12.3 fL [facility] RBC 2.36(L) 4.30 - 5.80 M/cumm [facility] MCV 101.7(H) 81.3 - 96.4 fL [facility] MCH 33.9(H) 27.1 - 33.3 pg [facility] MCHC 33.3 32.3 - 35.7 g/dL [facility] RDW CV 14.5 11.1 - 14.9 % [facility] RDW SD 53.5(H) 35.7 - 48.1 fL [facility] NRBC abs 0.03(H) 0.00 - 0.01 K/cumm [facility] Blood 12/23/2024 3:38 AM HEARSE DRIVER 12/23/2024 4:12 AM HEARSE DRIVER us Jared Davis MD LAB BLOOD ORDERABLES Final R esult Performing Organization Address [facility] de Phone Number [facility] Department [place] [address] * (ABNORMAL) Phosphorus (12/23/2024 3:38 AM HEARSE DRIVER) Phosphorus, pl 1.6(L) 2.3 - 4.5 mg/dL Blood 12/23/2024 3:38 AM HEARSE DRIVER 12/23/2024 4:12 AM HEARSE DRIVER us Jared Davis MD LAB BLOOD ORDERABLES Final R esult Performing Organization Address City/[facility] de Phone Number [facility] Department [place] [address] * Magnesium (12/23/2024 3:38 AM HEARSE DRIVER) Magnesium 1.5 1.4 - 2.5 mg/dL Blood 12/23/2024 3:38 AM HEARSE DRIVER 12/23/2024 4:12 AM HEARSE DRIVER us Jared Davis MD LAB BLOOD ORDERABLES Final R esult Performing Organization Address City/[facility] de Phone Number [facility] Department [place] [address] * (ABNORMAL) Hepatic function panel (12/23/2024 3:38 AM HEARSE DRIVER) [facility] Bilirubin, total 0.3 0.1 - 1.2 mg/dL Bilirubin, direct <0.2 0.1 - 0.3 mg/dL [facility] Protein, pl 5.5(L) 6.5 - 8.5 g/dL [facility] Albumin 2.5(L) 3.5 - 5.0 g/dL [facility] Alk phos 143(H) 40 - 130 Units/L [facility] ALT 271(H) 7 - 55 Units/L [facility] AST 32 10 - 50 Units/L [facility] Blood 12/23/2024 3:38 AM HEARSE DRIVER 12/23/2024 4:12 AM HEARSE DRIVER Kay La MD LAB BLOOD ORDERABLES Pilar l Result [facility] Department [place] [address] * (ABNORMAL) Basic metabolic panel (12/23/2024 3:38 AM HEARSE DRIVER) [facility] Sodium 137 135 - 145 mmol/L Potassium, pl 3.4 3.3 - 4.9 mmol/L [facility] Chloride 99 97 - 110 mmol/L [facility] CO2 37(H) 22 - 32 mmol/L [facility] Anion gap 1(L) 2 - 15 mmol/L [facility] BUN 7 6 - 25 mg/dL [facility] Creatinine 0.66(L) 0.80 - 1.30 mg/dL [facility] Glucose 153 70 - 199 mg/dL [facility] Comment: Interpretive Data Fasting glucose >/= 126 mg/dl is diagnostic for diabetes. Fasting is defined as no caloric intake [...] 2022. Calcium 8.1(L) 8.5 - 10.3 mg/dL [facility] Blood 12/23/2024 3:38 AM HEARSE DRIVER 12/23/2024 4:12 AM HEARSE DRIVER Narrative [facility] - 12/23/2024 4:40 AM HEARSE DRIVER Daily except Saturday and . Morning draw. us Jared Davis MD LAB BLOOD ORDERABLES Final R esult Performing Organization Address [facility] Co de Phone Number [facility] Department [place] [employer] [place] [address] * POCT glucose (12/22/2024 8:47 PM HEARSE DRIVER) Glucose, POC 125 70 - 199 mg/dL Blood 12/22/2024 8:47 PM HEARSE DRIVER 12/22/2024 8:47 PM HEARSE DRIVER us Brody Park MD LAB POCT ORDERABLES - DEVICE Final Result Performing Organization Address [facility] Co de Phone Number [facility] Department [place] [address] * POCT glucose (12/22/2024 8:18 PM HEARSE DRIVER) Glucose, POC 145 70 - 199 mg/dL Blood 12/22/2024 8:18 PM HEARSE DRIVER 12/22/2024 8:18 PM HEARSE DRIVER Brody Park MD LAB POCT ORDERABLES - DEVICE Final Result Performing Organization Address [facility] Co de Phone Number [facility] Department [place] [address] * POCT glucose (12/22/2024 5:26 PM HEARSE DRIVER) Glucose, POC 150 70 - 199 mg/dL Blood 12/22/2024 5:26 PM HEARSE DRIVER 12/22/2024 5:26 PM HEARSE DRIVER Bordy Park MD LAB POCT ORDERABLES - DEVICE Final Result Performing Organization Address [facility] Co de Phone Number [facility] [employer] [place] [address] * POCT glucose (12/22/2024 12:09 PM HEARSE DRIVER) Glucose, POC 134 70 - 199 mg/dL Blood 12/22/2024 12:0 9 PM HEARSE DRIVER 12/22/2024 12:09 PM HEARSE DRIVER Brody Park MD LAB POCT ORDERABLES - DEVICE Final Result Performing Organization Address [facility] de Phone Number [facility] [place] [place] [address] * POCT glucose (12/22/2024 7:54 AM HEARSE DRIVER) Glucose, POC 110 70 - 199 mg/dL Blood 12/22/2024 7:54 AM HEARSE DRIVER 12/22/2024 7:54 AM HEARSE DRIVER Brody Park MD LAB POCT ORDERABLES - DEVICE Final Result Performing Organization Address [facility] de Phone Number [facility] [employer] [place] [address] * eGFR (12/22/2024 12:26 AM HEARSE DRIVER) eGFR >90 >=60 mL/min/1. 73 m2 Comment: Interpretive Data Reference Interval Normal >/= 90 mL/min/1.73m2 Mildly decreased* 60 - 89 mL/min/1.73m2 Mildly to moderately decreased 45 - 59 mL/min/1.73m2 Moderately to severely decreased 30 - 44 mL/min/1.73m2 Severely decreased 15 - 29 mL/min/1.73m2 Kidney Failure < 15 mL/min/1.73m2 *Relative to young adult level Estimated glomerular [...] interpretive data was last reviewed 2021. Blood 12/22/2024 12:2 6 AM HEARSE DRIVER 12/22/2024 12:44 AM HEARSE DRIVER Jared Davis MD LAB BLOOD ORDERABLES Final R esult [facility] Department [place] [address] * (ABNORMAL) Manual Differential (12/22/2024 12:26 AM HEARSE DRIVER) Differential Manual Cells Counted 115 [facility] Neutrophil abs 8.5(H) 1.5 - 6.5 K/cumm [facility] Imm gran abs 0.0 0.0 - 0.1 K/cumm [facility] Lymphocyte abs 1.4 0.8 - 3.3 K/cumm [facility] Monocyte abs 1.0(H) 0.2 - 0.8 K/cumm [facility] Eosinophil abs 0.1 0.0 - 0.5 K/cumm [facility] Neutrophil pct 77.4 % [facility] Comment: Interpretive Data Percent cell count reference ranges are not reported, since discordance with absolute values may lead to misinterpretation of CBC data. Current Interpretive Data was last revised on 2018. Lymphocyte pct 13.0 % [facility] Comment: Interpretive Data Percent cell count reference ranges are not reported, since discordance with absolute values may lead to misinterpretation of CBC data. Current Interpretive Data was last revised on 2018. Monocyte pct 8.7 % [facility] Comment: Interpretive Data Percent cell count reference ranges are not reported, since discordance with absolute values may lead to misinterpretation of CBC data. Current Interpretive Data was last revised on 2018. Eosinophil pct 0.9 % [facility] Comment: Interpretive Data Percent cell count reference ranges are not reported, since discordance with absolute values may lead to misinterpretation of CBC data. Current Interpretive Data was last revised on 2018. RBC morphology Present(A) [facility] Anisocytosis Marked(A) [facility] Macrocytes > 15/HPF(A) [facility] Platelet estimate Adequate [facility] Blood 12/22/2024 12:2 6 AM HEARSE DRIVER 12/22/2024 12:44 AM HEARSE DRIVER Jared Davis MD LAB BLOOD ORDERABLES Edited Result - Final [facility] Department [place] [address] * (ABNORMAL) CBC without differential (12/22/2024 12:26 AM HEARSE DRIVER) WBC 11.0(H) 3.8 - 9.9 K/cumm Hgb 10.8(L) 13.0 - 17.5 g/dL [facility] Hct 31.5(L) 38.9 - 50.3 % [facility] Plt 281 150 - 400 K/cumm [facility] MPV 11.3 9.1 - 12.3 fL [facility] RBC 3.12(L) 4.30 - 5.80 M/cumm [facility] MCV 101.0(H) 81.3 - 96.4 fL [facility] MCH 34.6(H) 27.1 - 33.3 pg [facility] MCHC 34.3 32.3 - 35.7 g/dL [facility] RDW CV 14.0 11.1 - 14.9 % [facility] RDW SD 51.7(H) 35.7 - 48.1 fL [facility] NRBC abs 0.02(H) 0.00 - 0.01 K/cumm [facility] Blood 12/22/2024 12:2 6 AM HEARSE DRIVER 12/22/2024 12:44 AM HEARSE DRIVER Jared Davis MD LAB BLOOD ORDERABLES Final R esult Performing Organization Address City/[facility] Co de Phone Number [facility] [employer] [place] [address] * (ABNORMAL) Phosphorus (12/22/2024 12:26 AM HEARSE DRIVER) Phosphorus, pl 1.9(L) 2.3 - 4.5 mg/dL Blood 12/22/2024 12:2 6 AM HEARSE DRIVER 12/22/2024 12:44 AM HEARSE DRIVER Jared Davis MD LAB BLOOD ORDERABLES Final R esult Performing Organization Address [facility] de Phone Number [facility] [employer] [place] [address] * Magnesium (12/22/2024 12:26 AM HEARSE DRIVER) Magnesium 2.2 1.4 - 2.5 mg/dL Blood 12/22/2024 12:2 6 AM HEARSE DRIVER 12/22/2024 12:44 AM HEARSE DRIVER Jared Davis MD LAB BLOOD ORDERABLES Final R esult Performing Organization Address [facility] Co de Phone Number [facility] [employer] [place] [address] * (ABNORMAL) Hepatic function panel (12/22/2024 12:26 AM HEARSE DRIVER) Bilirubin, total 0.4 0.1 - 1.2 mg/dL Bilirubin, direct See Comment 0.1 - 0.3 mg/dL [facility] Comment:Credited; Hemolyzed Specimen Protein, pl 6.8 6.5 - 8.5 g/dL [facility] Albumin 2.9(L) 3.5 - 5.0 g/dL [facility] Alk phos 152(H) 40 - 130 Units/L [facility] ALT 461(H) 7 - 55 Units/L [facility] AST 55(H) 10 - 50 Units/L [facility] Comment:Hemolyzed; result ma y be falsely elevated Blood 12/22/2024 12:2 6 AM HEARSE DRIVER 12/22/2024 12:44 AM HEARSE DRIVER Kay La MD LAB BLOOD ORDERABLES Pilar armas Result [facility] Department [place] [address] * (ABNORMAL) Basic metabolic panel (12/22/2024 12:26 AM HEARSE DRIVER) Sodium 137 135 - 145 mmol/L Potassium, pl 4.1 3.3 - 4.9 mmol/L [facility] Comment:Hemolyzed; Potassium value may be falsely elevated by as much as 0.6-1.0 mmol/L. Suggest redraw and reanalysis. Chloride 96(L) 97 - 110 mmol/L [facility] CO2 34(H) 22 - 32 mmol/L [facility] Anion gap 7 2 - 15 mmol/L [facility] BUN 7 6 - 25 mg/dL [facility] Creatinine 0.62(L) 0.80 - 1.30 mg/dL [facility] Glucose 150 70 - 199 mg/dL [facility] Comment: Interpretive Data Fasting glucose >/= 126 mg/dl is diagnostic for diabetes. Fasting is defined as no caloric intake [...] 2022. Calcium 9.0 8.5 - 10.3 mg/dL [facility] Blood 12/22/2024 12:2 6 AM HEARSE DRIVER 12/22/2024 12:44 AM HEARSE DRIVER Narrative [facility] - 12/22/2024 1:18 AM HEARSE DRIVER Daily except Saturday and . Morning draw. us Jared Davis MD LAB BLOOD ORDERABLES Final R esult [facility] Department [place] [address] * POCT glucose (12/21/2024 8:49 PM HEARSE DRIVER) Glucose, POC 172 70 - 199 mg/dL Blood 12/21/2024 8:49 PM HEARSE DRIVER 12/21/2024 8:49 PM HEARSE DRIVER Brody Park MD LAB POCT ORDERABLES - DEVICE Final Result Performing Organization Address City/[facility] Co de Phone Number [facility] Department [place] [address] * XR Chest 1 View (12/21/2024 6:50 PM HEARSE DRIVER) Anatomical Region Laterality Modality Body, Chest N/A Computed Radiogr aphy 12/22/2024 7:08 AM HEARSE DRIVER Impressions 12/22/2024 7:08 AM HEARSE DRIVER The current study is compared with the prior radiograph dated 12/18/2024. The lungs are extremely well expanded. 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 Additional smaller focus of consolidation is seen again in the left upper lobe is unchanged and likely related to similar radiology. The heart is normal in size. There are no effusions. There is no pneumothorax Electronically signed by: Raul Quezada M.D. Narrative 12/22/2024 7:08 AM HEARSE DRIVER EXAMINATION: 1 view chest radiograph Procedure Note Raul Quezada MD - 12/22/2024 EXAMINATION: 1 view chest radiograph IMPRESSION: The current study is compared with the prior radiograph dated 12/18/2024. The lungs are extremely well expanded. 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 Additional smaller focus of consolidation is seen again in the left upper lobe is unchanged and likely related to similar radiology. The heart is normal in size. There are no effusions. There is no pneumothorax Electronically signed by: Raul Quezada M.D. Jared Davis MD IMG XR PROCEDURES Final Resu lt * POCT glucose (12/21/2024 5:47 PM HEARSE DRIVER) [facility] Glucose, POC 146 70 - 199 mg/dL Blood 12/21/2024 5:47 PM HEARSE DRIVER 12/21/2024 5:47 PM HEARSE DRIVER Brody Park MD LAB POCT ORDERABLES - DEVICE Final Result [facility] Department [place] [address] * Pneumonia PCR Sputum, induced (12/21/2024 11:47 AM HEARSE DRIVER) [facility] C. pneumoniae DNA Not Detected Not Detected Legionella pneumophila DNA Not Detected Not Detected [facility] M. pneumoniae DNA Not Detected Not Detected [facility] Adenovirus DNA Not Detected Not Detected [facility] Coronavirus (229E, OC43, HKU1, NL63) RNA Not Detected Not Detected [facility] Metapneumovirus RNA Not Detected Not Detected [facility] Rhinovirus/Enterov irus RNA Not Detected Not Detected [facility] Influenza A RNA Not Detected Not Detected [facility] Influenza B RNA Not Detected Not Detected [facility] Parainfluenza virus (1-4) RNA Not Detected Not Detected [facility] RSV RNA Not Detected Not Detected [facility] Sputum, induced 12/21/2024 1 1:47 AM HEARSE DRIVER 12/21/2024 1:26 PM HEARSE DRIVER N[facility]ative [facility] - 12/21/2024 3:05 PM HEARSE DRIVER The [employer] Pneumonia Panel is a multiplexed nucleic acid test capable of simultaneous detection and identification of multiple respiratory viruses and bacteria. This panel detects Adenovirus, coronaviruses (Coronavirus HKU1, Coronavirus [...] the suspicion for adenovirus infection is high. The results of this test must be considered in the clinical context of the patient and should not be used as the sole basis for diagnosis, treatment, or other management decisions. Negative results in the setting of a respiratory illness may be due to infection with pathogens that are not detected by this test. Positive results do not rule out infection/co-infection with other organisms. The [employer] Pneumonia Panel is FDA cleared for lower respiratory tract specimens. The performance characteristics of this assay have been determined by [facility]. Current interpretive data was last revised on 2024. Jared Davis MD LAB MICROBIOLOGY - GENERAL O RDERABLES Final Result [facility] Department [place] [address] * Pneumonia PCR with aerobic culture and Gram stain Sputum, induced (12/21/2024 11:47 AM HEARSE DRIVER) Direct Specimen Exam Molecular Analysis: No bacterial targets detected by molecular analysis. A negative molecular panel strongly supports discontinuation of anti-MRSA and anti-pseudomonal therapy for the treatment of pneumonia due to MRSA and P. aeruginosa (refer to interpretive data for full list of targets evaluated). Correlation of molecular analysis with culture results is recommended. Direct Specimen Exam Stain: Few polymorphonuclear leukocytes seen. Few squamous epithelial cells seen. Rare mixed bacterial oscar seen on Gram stain. [facility] Report Final Report: Growth indicates upper respiratory oscar. [facility] Organism GROWTH INDICATES UPPER RESPIRATORY OSCAR. [facility] Sputum, induced 12/21/2024 1 1:47 AM HEARSE DRIVER 12/21/2024 12:52 PM HEARSE DRIVER Narrative [facility] 12/23/2024 2:48 PM HEARSE DRIVER When rapid molecular testing results are reported, testing completed using the [employer] Pneumonia Panel. This molecular assay detects: Acinetobacter calcoaceticus-baumannii complex, Enterobacter cloacae complex, Escherichia coli, Haemophilus influenzae, Enterobacter (Klebsiella) aerogenes, Klebsiella oxytoca, Klebsiella pneumoniae group, Moraxella catarrhalis, Proteus spp., Pseudomonas aeruginosa, Serratia marcescens, Staphylococcus aureus, Streptococcus agalactiae, Streptococcus pneumoniae, and Streptococcus pyogenes. These bacteria are detected and reported semi-quantitatively with bins representing approximately 10^4, 10^5, 10^6, or greater than or equal to 10^7 genomic copies of bacterial nucleic acid per mL (copies/mL) of specimen. These quantities are reported to aid in estimating the relative abundance of organism(s) detected within the specimen and to correlate these results with culture results. For Staphylococcus aureus, mecA/C and MREJ genes are evaluated to predict methicillin resistance or susceptibility. For Gram-negative bacteria, the beta-lactamases CTX-M, IMP, KPC, NDM, VIM and OXA-48-like are evaluated and reported if detected. For Gram-negative organisms, the absence of detection of resistance markers does not exclude resistance. Correlation with final culture results and susceptibility testing is recommended. The [employer] Pneumonia Panel is cleared by the [place] Food and Drug Administration and its performance characteristics have been confirmed by the [facility]. The performance of the [employer] Pneumonia Panel has not been established for monitoring treatment of infection and bacterial nucleic acids may persist independent of organism viability. Jared Davis MD LAB MICROBIOLOGY - GENERAL O RDERABLES Final Result Performing Organization Address City/State/[facility] Co de Phone Number [facility] [place] [employer] [place] [address] * POCT glucose (12/21/2024 11:32 AM HEARSE DRIVER) Glucose, POC 175 70 - 199 mg/dL Blood 12/21/2024 11:3 2 AM HEARSE DRIVER 12/21/2024 11:32 AM HEARSE DRIVER us Brody Park MD LAB POCT ORDERABLES - DEVICE Final Result Performing Organization Address [facility] Co de Phone Number [facility] [place] [address] * POCT glucose (12/21/2024 8:50 AM HEARSE DRIVER) Glucose, POC 147 70 - 199 mg/dL Blood 12/21/2024 8:50 AM HEARSE DRIVER 12/21/2024 8:50 AM HEARSE DRIVER us Brody Park MD LAB POCT ORDERABLES - DEVICE Final Result Performing Organization Address [facility] Co de Phone Number [facility] Department [place] [employer] [place] [address] * eGFR (12/21/2024 2:37 AM HEARSE DRIVER) eGFR >90 >=60 mL/min/1. 73 m2 Comment: Interpretive Data Reference Interval Normal >/= 90 mL/min/1.73m2 Mildly decreased* 60 - 89 mL/min/1.73m2 Mildly to moderately decreased 45 - 59 mL/min/1.73m2 Moderately to severely decreased 30 - 44 mL/min/1.73m2 Severely decreased 15 - 29 mL/min/1.73m2 Kidney Failure < 15 mL/min/1.73m2 *Relative to young adult level Estimated glomerular [...] interpretive data was last reviewed 2021. Blood 12/21/2024 2:37 AM HEARSE DRIVER 12/21/2024 2:55 AM HEARSE DRIVER Jared Davis MD LAB BLOOD ORDERABLES Final R esult [facility] [place] [address] * (ABNORMAL) Manual Differential (12/21/2024 2:37 AM HEARSE DRIVER) Differential Manual Cells Counted 118 [facility] Neutrophil abs 5.4 1.5 - 6.5 K/cumm [facility] Imm gran abs 0.2(H) 0.0 - 0.1 K/cumm [facility] Lymphocyte abs 2.6 0.8 - 3.3 K/cumm [facility] Monocyte abs 1.0(H) 0.2 - 0.8 K/cumm [facility] Eosinophil abs 0.4 0.0 - 0.5 K/cumm [facility] Neutrophil pct 56.8 % [facility] Comment: Interpretive Data Percent cell count reference ranges are not reported, since discordance with absolute values may lead to misinterpretation of CBC data. Current Interpretive Data was last revised on 2018. Lymphocyte pct 27.1 % [facility] Comment: Interpretive Data Percent cell count reference ranges are not reported, since discordance with absolute values may lead to misinterpretation of CBC data. Current Interpretive Data was last revised on 2018. Monocyte pct 10.2 % [facility] Comment: Interpretive Data Percent cell count reference ranges are not reported, since discordance with absolute values may lead to misinterpretation of CBC data. Current Interpretive Data was last revised on 2018. Eosinophil pct 4.2 % [facility] Comment: Interpretive Data Percent cell count reference ranges are not reported, since discordance with absolute values may lead to misinterpretation of CBC data. Current Interpretive Data was last revised on 2018. Myelocyte pct 1.7 % [facility] RBC morphology Present(A) [facility] Anisocytosis Moderate(A) [facility] Poikilocytosis Slight(A) [facility] Macrocytes 8-15/HPF(A) [facility] Platelet estimate Adequate [facility] Blood 12/21/2024 2:37 AM HEARSE DRIVER 12/21/2024 2:55 AM HEARSE DRIVER Jared Davis MD LAB BLOOD ORDERABLES Final R esult Performing Organization Address [facility] Co de Phone Number [facility] [employer] [place] [address] * (ABNORMAL) aPTT (12/21/2024 2:37 AM HEARSE DRIVER) aPTT 41(H) 28 - 38 sec Comment: Interpretive Data Heparin therapeutic range: 66.0 - 100.0 seconds. Range based on correlation with therapeutic heparin activity range of 0.3 - 0.7 Units/mL. Current interpretive data was last revised on 2023. Blood 12/21/2024 2:37 AM HEARSE DRIVER 12/21/2024 3:03 AM HEARSE DRIVER Jared Davis MD LAB BLOOD ORDERABLES Final R esult Performing Organization Address [facility] Co de Phone Number [facility] [place] [employer] [place] [address] * (ABNORMAL) Protime-INR (12/21/2024 2:37 AM HEARSE DRIVER) PT 24.8(H) 9.7 - 13.0 sec INR 2.26(H) 0.90 - 1.20 [facility] Comment: Interpretive data Oral anticoagulant therapeutic ranges: Venous thromboembolism prophylaxis or treatment: 2.0-3.0 CARDIOLOGY Standard range: 2.0-3.0 High-intensity range: 2.5-3.5 Refer to indication-specific guidelines for appropriate target ranges for prosthetic heart valve replacement. Current interpretive data was last revised on 2019. Blood 12/21/2024 2:37 AM HEARSE DRIVER 12/21/2024 3:03 AM HEARSE DRIVER Jared Davis MD LAB BLOOD ORDERABLES Final R esult Performing Organization Address City/[facility] Co de Phone Number [facility] Department [place] [employer] [place] [address] * (ABNORMAL) CBC without differential (12/21/2024 2:37 AM HEARSE DRIVER) WBC 9.5 3.8 - 9.9 K/cumm Hgb 9.7(L) 13.0 - 17.5 g/dL [facility] Hct 29.6(L) 38.9 - 50.3 % [facility] Plt 277 150 - 400 K/cumm [facility] MPV 10.8 9.1 - 12.3 fL [facility] RBC 2.91(L) 4.30 - 5.80 M/cumm [facility] MCV 101.7(H) 81.3 - 96.4 fL [facility] MCH 33.3 27.1 - 33.3 pg [facility] MCHC 32.8 32.3 - 35.7 g/dL [facility] RDW CV 14.1 11.1 - 14.9 % [facility] RDW SD 53.0(H) 35.7 - 48.1 fL [facility] NRBC abs 0.03(H) 0.00 - 0.01 K/cumm [facility] Blood 12/21/2024 2:37 AM HEARSE DRIVER 12/21/2024 2:55 AM HEARSE DRIVER Jared Davis MD LAB BLOOD ORDERABLES Final R esult Performing Organization Address City/[facility]/ZIP Co de Phone Number [facility] Department [place] [address] * Type and screen (12/21/2024 2:37 AM HEARSE DRIVER) ABO Rh A Positive Ursula, indirect Negative [facility] Blood 12/21/2024 2:37 AM HEARSE DRIVER 12/21/2024 3:31 AM HEARSE DRIVER Narrative [facility] - 12/21/2024 4:39 AM HEARSE DRIVER Has the patient had Daratumumab or Isatuximab in the past 6 months?->Unknown Jared Davis MD LAB BLOOD BANK TEST ORDERABL ES Final Result Performing Organization Address [facility] Co de Phone Number [facility] [employer] [place] [address] * (ABNORMAL) Uric acid (12/21/2024 2:37 AM HEARSE DRIVER) Uric acid 2.9(L) 3.0 - 8.0 mg/dL Blood 12/21/2024 2:37 AM HEARSE DRIVER 12/21/2024 2:55 AM HEARSE DRIVER Narrative [facility] - 12/21/2024 3:30 AM HEARSE DRIVER Saturday and only. Morning draw. . Jared Davis MD LAB BLOOD ORDERABLES Final R esult Performing Organization Address City/[facility] Co de Phone Number [facility] [employer] [place] [address] * (ABNORMAL) Phosphorus (12/21/2024 2:37 AM HEARSE DRIVER) Phosphorus, pl 2.0(L) 2.3 - 4.5 mg/dL Blood 12/21/2024 2:37 AM HEARSE DRIVER 12/21/2024 2:55 AM HEARSE DRIVER Jared Davis MD LAB BLOOD ORDERABLES Final R esult Performing Organization Address [facility] Co de Phone Number [facility] [employer] [place] [address] * Magnesium (12/21/2024 2:37 AM HEARSE DRIVER) Pathologist [facility] Magnesium 1.5 1.4 - 2.5 mg/dL Blood 12/21/2024 2:37 AM HEARSE DRIVER 12/21/2024 2:55 AM HEARSE DRIVER Jared Davis MD LAB BLOOD ORDERABLES Final R esult Performing Organization Address [facility] [place] [address] * (ABNORMAL) Lactate dehydrogenase (LD) (12/21/2024 2:37 AM HEARSE DRIVER) Pathologist [facility] Lactate dehydrogenase (LDH) 351(H) 100 - 250 Units/L Comment:Hemolyzed; result ma y be falsely elevated Blood 12/21/2024 2:37 AM HEARSE DRIVER 12/21/2024 2:55 AM HEARSE DRIVER Narrative [facility] - 12/21/2024 3:30 AM HEARSE DRIVER Saturday and only. Morning draw. Jared Davis MD LAB BLOOD ORDERABLES Final R esult Performing Organization Address [facility] Co de Phone Number [facility] [employer] [place] [address] * Bilirubin, direct (12/21/2024 2:37 AM HEARSE DRIVER) Pathologist [facility] Bilirubin, direct <0.2 0.1 - 0.3 mg/dL Comment:Hemolyzed; result ma y be falsely decreased Blood 12/21/2024 2:37 AM HEARSE DRIVER 12/21/2024 2:55 AM HEARSE DRIVER Jared Davis MD LAB BLOOD ORDERABLES Final R esult Performing Organization Address City/[facility] Co de Phone Number [facility] [place] [address] * (ABNORMAL) Comprehensive metabolic panel (12/21/2024 2:37 AM HEARSE DRIVER) Sodium 138 135 - 145 mmol/L Potassium, pl 4.1 3.3 - 4.9 mmol/L [facility] Comment:Hemolyzed; Potassium value may be falsely elevated by as much as 0.3-0.5 mmol/L. Suggest redraw and reanalysis. Chloride 98 97 - 110 mmol/L [facility] CO2 34(H) 22 - 32 mmol/L [facility] Anion gap 6 2 - 15 mmol/L [facility] BUN 7 6 - 25 mg/dL [facility] Creatinine 0.66(L) 0.80 - 1.30 mg/dL [facility] Glucose 147 70 - 199 mg/dL [facility] Comment: Interpretive Data Fasting glucose >/= 126 mg/dl is diagnostic for diabetes. Fasting is defined as no caloric intake [...] 2022. Calcium 8.7 8.5 - 10.3 mg/dL [facility] Bilirubin, total 0.3 0.1 - 1.2 mg/dL [facility] Protein, pl 6.2(L) 6.5 - 8.5 g/dL [facility] Albumin 2.6(L) 3.5 - 5.0 g/dL [facility] Alk phos 154(H) 40 - 130 Units/L [facility] ALT 549(H) 7 - 55 Units/L [facility] AST 52(H) 10 - 50 Units/L [facility] Comment:Hemolyzed; result ma y be falsely elevated Blood 12/21/2024 2:37 AM HEARSE DRIVER 12/21/2024 2:55 AM HEARSE DRIVER Narrative [facility] - 12/21/2024 3:30 AM HEARSE DRIVER Saturday and only. Morning draw. us Jared Davis MD LAB BLOOD ORDERABLES Final R esult Performing Organization Address [facility] Co de Phone Number [facility] [place] [address] * POCT glucose (12/20/2024 10:17 PM HEARSE DRIVER) Glucose, POC 174 70 - 199 mg/dL Blood 12/20/2024 10:1 7 PM HEARSE DRIVER 12/20/2024 10:17 PM HEARSE DRIVER Brody Park MD LAB POCT ORDERABLES - DEVICE Final Result Performing Organization Address [facility] de Phone Number [facility] [place] [address] * POCT glucose (12/20/2024 5:02 PM HEARSE DRIVER) Glucose, POC 163 70 - 199 mg/dL Blood 12/20/2024 5:02 PM HEARSE DRIVER 12/20/2024 5:02 PM HEARSE DRIVER Brody Park MD LAB POCT ORDERABLES - DEVICE Final Result Performing Organization Address [facility] de Phone Number [facility] [place] [place] [address] * POCT glucose (12/20/2024 11:47 AM HEARSE DRIVER) Glucose, POC 157 70 - 199 mg/dL Blood 12/20/2024 11:4 7 AM HEARSE DRIVER 12/20/2024 11:47 AM HEARSE DRIVER Brody Park MD LAB POCT ORDERABLES - DEVICE Final Result Performing Organization Address [facility]/State/ZIP Co de Phone Number [facility] Department [place] [employer] [place] [address] * POCT glucose (12/20/2024 7:50 AM HEARSE DRIVER) Glucose, POC 172 70 - 199 mg/dL Blood 12/20/2024 7:50 AM HEARSE DRIVER 12/20/2024 7:50 AM HEARSE DRIVER us Brody Park MD LAB POCT ORDERABLES - DEVICE Final Result Performing Organization Address [facility] de Phone Number [facility] [place] [address] * Coccidioides antibody screen w/reflex Blood (12/20/2024 12:41 AM HEARSE DRIVER) Pathologist [facility] Coccidioides ab screen, ser Reactive Negative [facility] Comment: Confirmatory testing by complement fixation and immunodiffusion has been ordered. ADDITIONAL INFORMATION This test has been modified from the legislative correspondent's instructions. Its performance characteristics were determined by [facility] in a manner consistent with CLIA requirements. This test has not been cleared or approved by the U.S. Food and Drug Administration. Test Performed by: [facility] [place] [address] Supply Controller: Cayden Orellana Ph.D.; CLIA# [id number] Blood 12/20/2024 12:4 1 AM HEARSE DRIVER 12/20/2024 1:18 AM HEARSE DRIVER us Jared Davis MD LAB MICROBIOLOGY - GENERAL O RDERABLES Final Result Performing Organization Address [facility] Co de Phone Number [facility] [place] [employer] [place] [address] [facility] * Herpes Simplex Virus (HSV) PCR Blood (12/20/2024 12:41 AM HEARSE DRIVER) Pathologist [facility] HSV DNA Not Detected Not Detected [facility] Comment: Interpretive Data This assay is performed using primers specific for the DNA polymerase gene of both HSV-1 and HSV-2. The assay contains unique primer/probe sets capable of distinguishing between HSV-1 and HSV-2. This assay has been cleared by the U.S. Food and Drug Administration for performance on cerebrospinal fluid and genital swabs. The assay has been evaluated for use on alternative sample types, though it is not FDA cleared for these applications. The performance of all sample types has been validated by the performing laboratory and deemed acceptable for patient testing. Current Interpretive Data was last reviewed on 03/17/2019 Blood 12/20/2024 12:4 1 AM HEARSE DRIVER 12/20/2024 1:40 AM HEARSE DRIVER Jared Davis MD LAB MICROBIOLOGY - GENERAL O RDERABLES Final Result Performing Organization Address [facility] de Phone Number [facility] [place] [address] [facility] * Histoplasma Antibody Blood (12/20/2024 12:41 AM HEARSE DRIVER) Pathologist [facility] Histoplasma Ab, yeast CF Negative Negative [facility] Histoplasma Ab, Immunodiffusion Negative Negative [facility] Comment: A negative complement fixation and immunodiffusion (CF/ID) result does not exclude the diagnosis of histoplasmosis. Repeat testing by CF/ID in 1-2 weeks if clinically indicated. Test Performed by: [address] [address] Supply Controller: Cayden Orellana Ph.D.; CLIA# [id number] Blood 12/20/2024 12:4 1 AM HEARSE DRIVER 12/20/2024 1:18 AM HEARSE DRIVER Jared Davis MD LAB MICROBIOLOGY - GENERAL O RDERABLES Final Result Performing Organization Address [facility] Co de Phone Number [facility] [place] [address] [facility] * Cytomegalovirus (CMV) DNA PCR, quantitative Blood (12/20/2024 12:41 AM HEARSE DRIVER) CMV DNA Not Detected [facility] Comment: Interpretive Data: The quantifiable range of this assay is 34 IUnits/mL to 10,000,000 IUnits/mL (1.53 log IUnits/mL to 7.0 log IUnits/mL). Testing was performed by the MICHEL [employer]00 CMV Test ([employer] Testing performed at [facility]. Current interpretive data was last revised on 2021. Blood 12/20/2024 12:4 1 AM HEARSE DRIVER 12/20/2024 1:39 AM HEARSE DRIVER Jared Davis MD LAB MICROBIOLOGY - GENERAL O RDERABLES Final Result [facility] [place] [address] [facility] * eGFR (12/20/2024 12:41 AM HEARSE DRIVER) Pathologist [facility] eGFR >90 >=60 mL/min/1. 73 m2 Comment: Interpretive Data Reference Interval Normal >/= 90 mL/min/1.73m2 Mildly decreased* 60 - 89 mL/min/1.73m2 Mildly to moderately decreased 45 - 59 mL/min/1.73m2 Moderately to severely decreased 30 - 44 mL/min/1.73m2 Severely decreased 15 - 29 mL/min/1.73m2 Kidney Failure < 15 mL/min/1.73m2 *Relative to young adult level Estimated glomerular [...] interpretive data was last reviewed 2021. Blood 12/20/2024 12:4 1 AM HEARSE DRIVER 12/20/2024 1:18 AM HEARSE DRIVER Jared Davis MD LAB BLOOD ORDERABLES Final R esult Performing Organization Address City/[facility]/ZIP Co de Phone Number [facility] Department [place] [address] * Blastomyces antibody, EIA, serum Blood (12/20/2024 12:41 AM HEARSE DRIVER) Pathologist [facility] Blastomyces Antibody Negative Negative [facility] Comment: A single negative result does not exclude the diagnosis of blastomycosis. Repeat testing on a new sample in 7-14 days if clinically indicated. Test Performed by: [facility] [address] [place], [place] [id number] Supply Controller: Cayden Orellana Ph.D.; CLIA# [id number] Blood 12/20/2024 12:4 1 AM HEARSE DRIVER 12/20/2024 1:18 AM HEARSE DRIVER Jared Davis MD LAB MICROBIOLOGY - GENERAL O RDERABLES Final Result Performing Organization Address [facility] Co de Phone Number [facility] Department [place] [address] [facility] * (ABNORMAL) Johnyn-Roth virus (EBV) antibody panel Blood (12/20/2024 12:41 AM HEARSE DRIVER) Pathologist [facility] EBV nuclear Ab Positive(A) Negative Comment:Indicates the presen ce of detectable IgG antibody to EBV Nuclear Antigen. EBV VCA IgG Positive(A) Negative [facility] Comment:Indicates the presen ce of antibody; 90% of the adult population will have been infected with EBV sometime in the past. EBV VCA IgM Negative Negative [facility] Comment:No detectable IgM an tibody to EBV-VCA. A negative result indicates no current infection with EBV. If clinical suspicion of acute EBV infection is present, testing should be repeated after one week. EBV interp Past Infection [facility] Blood 12/20/2024 12:4 1 AM HEARSE DRIVER 12/20/2024 1:18 AM HEARSE DRIVER Jared Davis MD LAB MICROBIOLOGY - GENERAL O RDERABLES Final Result Performing Organization Address [facility] Co de Phone Number [facility] [place] [address] * Coccidioides antibodies (12/20/2024 12:41 AM HEARSE DRIVER) Pathologist [facility] Coccidioides ab comp fix Negative Negative [facility] Coccidioides IgG ImmDiff Negative Negative [facility] Coccidioides IgM ImmDiff Negative Negative [facility] Comment: The EIA may be reactive prior to complement fixation and immunodiffusion (CompF/ImmDiff), or may be falsely-reactive. Repeat testing by CompF/ImmDiff in 2-3 weeks if clinically indicated. Test Performed by: [place] [address] Supply Controller: Cayden Orellana Ph.D.; CLIA# [id number] Blood 12/20/2024 12:4 1 AM HEARSE DRIVER 12/20/2024 1:18 AM HEARSE DRIVER Jared Davis MD LAB BLOOD ORDERABLES Final R esult Performing Organization Address [facility] de Phone Number [facility] Department [place] [address] [facility] * Aspergillus galactomannan antigen Blood (12/20/2024 12:41 AM HEARSE DRIVER) Pathologist [facility] Aspergillus galactomannan Ag <0.500 <0.5 Index [facility] Comment: ADDITIONAL INFORMATION This is a qualitative test and the resulted index value is not indicative of disease severity. Serial testing is recommended for patients at high risk for invasive aspergillosis. This assay was performed using the FDA-cleared [employer] Aspergillus Galactomannan EIA. Test Performed by: [facility] [address] [place] [address] Supply Controller: Cayden Orellana Ph.D.; CLIA# [id number] Blood 12/20/2024 12:4 1 AM HEARSE DRIVER 12/20/2024 1:17 AM HEARSE DRIVER Jared Davis MD LAB MICROBIOLOGY - GENERAL O RDERABLES Final Result [facility] Department [place] [address] [facility] * (ABNORMAL) Manual Differential (12/20/2024 12:41 AM HEARSE DRIVER) Differential Manual Cells Counted 114 [facility] Neutrophil abs 5.6 1.5 - 6.5 K/cumm [facility] Imm gran abs 0.2(H) 0.0 - 0.1 K/cumm [facility] Lymphocyte abs 2.7 0.8 - 3.3 K/cumm [facility] Monocyte abs 0.8 0.2 - 0.8 K/cumm [facility] Eosinophil abs 0.2 0.0 - 0.5 K/cumm [facility] Neutrophil pct 57.9 % [facility] Comment: Interpretive Data Percent cell count reference ranges are not reported, since discordance with absolute values may lead to misinterpretation of CBC data. Current Interpretive Data was last revised on 2018. Lymphocyte pct 28.1 % [facility] Comment: Interpretive Data Percent cell count reference ranges are not reported, since discordance with absolute values may lead to misinterpretation of CBC data. Current Interpretive Data was last revised on 2018. Monocyte pct 8.8 % [facility] Comment: Interpretive Data Percent cell count reference ranges are not reported, since discordance with absolute values may lead to misinterpretation of CBC data. Current Interpretive Data was last revised on 2018. Eosinophil pct 2.6 % [facility] Comment: Interpretive Data Percent cell count reference ranges are not reported, since discordance with absolute values may lead to misinterpretation of CBC data. Current Interpretive Data was last revised on 2018. Promyelocyte pct 2.6 % [facility] RBC morphology Present(A) [facility] Anisocytosis Moderate(A) [facility] Macrocytes 8-15/HPF(A) [facility] Platelet estimate Adequate [facility] Blood 12/20/2024 12:4 1 AM HEARSE DRIVER 12/20/2024 1:18 AM HEARSE DRIVER Jared Davis MD LAB BLOOD ORDERABLES Edited Result - Final Performing Organization Address City/[facility]/ZIP Co de Phone Number [facility] Department [place] [address] * (ABNORMAL) CBC without differential (12/20/2024 12:41 AM HEARSE DRIVER) WBC 9.6 3.8 - 9.9 K/cumm Hgb 10.9(L) 13.0 - 17.5 g/dL [facility] Hct 33.3(L) 38.9 - 50.3 % [facility] Plt 343 150 - 400 K/cumm [facility] MPV 10.9 9.1 - 12.3 fL [facility] RBC 3.26(L) 4.30 - 5.80 M/cumm [facility] MCV 102.1(H) 81.3 - 96.4 fL [facility] MCH 33.4(H) 27.1 - 33.3 pg [facility] MCHC 32.7 32.3 - 35.7 g/dL [facility] RDW CV 14.0 11.1 - 14.9 % [facility] RDW SD 52.1(H) 35.7 - 48.1 fL [facility] NRBC abs 0.06(H) 0.00 - 0.01 K/cumm [facility] Blood 12/20/2024 12:4 1 AM HEARSE DRIVER 12/20/2024 1:18 AM HEARSE DRIVER Jared Davis MD LAB BLOOD ORDERABLES Final R esult [facility] [place] [address] * Phosphorus (12/20/2024 12:41 AM HEARSE DRIVER) Pathologist [facility] Phosphorus, pl 2.8 2.3 - 4.5 mg/dL Blood 12/20/2024 12:4 1 AM HEARSE DRIVER 12/20/2024 1:18 AM HEARSE DRIVER Jared Davis MD LAB BLOOD ORDERABLES Final R esult Performing Organization Address [facility] [place] [address] * Magnesium (12/20/2024 12:41 AM HEARSE DRIVER) [facility] Magnesium 1.8 1.4 - 2.5 mg/dL Blood 12/20/2024 12:4 1 AM HEARSE DRIVER 12/20/2024 1:18 AM HEARSE DRIVER Jared Davis MD LAB BLOOD ORDERABLES Final R esult Performing Organization Address [facility] de Phone Number [facility] [place] [address] * (ABNORMAL) Hepatic function panel (12/20/2024 12:41 AM HEARSE DRIVER) [facility] Bilirubin, total 0.4 0.1 - 1.2 mg/dL Bilirubin, direct 0.2 0.1 - 0.3 mg/dL [facility] Protein, pl 7.0 6.5 - 8.5 g/dL [facility] Albumin 3.3(L) 3.5 - 5.0 g/dL [facility] Alk phos 176(H) 40 - 130 Units/L [facility] ALT 858(H) 7 - 55 Units/L [facility] AST 85(H) 10 - 50 Units/L [facility] Blood 12/20/2024 12:4 1 AM HEARSE DRIVER 12/20/2024 1:18 AM HEARSE DRIVER Kay La MD LAB BLOOD ORDERABLES Pilar l Result Performing Organization Address City/[facility]/ZIP Co de Phone Number [facility] Department [place] [address] * (ABNORMAL) Basic metabolic panel (12/20/2024 12:41 AM HEARSE DRIVER) Pathologist [facility] Sodium 139 135 - 145 mmol/L Potassium, pl 3.7 3.3 - 4.9 mmol/L [facility] Chloride 99 97 - 110 mmol/L [facility] CO2 35(H) 22 - 32 mmol/L [facility] Anion gap 5 2 - 15 mmol/L [facility] BUN 8 6 - 25 mg/dL [facility] Creatinine 0.73(L) 0.80 - 1.30 mg/dL [facility] Glucose 228(H) 70 - 199 mg/dL [facility] Comment: Interpretive Data Fasting glucose >/= 126 mg/dl is diagnostic for diabetes. Fasting is defined as no caloric intake [...] 2022. Calcium 8.7 8.5 - 10.3 mg/dL [facility] Blood 12/20/2024 12:4 1 AM HEARSE DRIVER 12/20/2024 1:18 AM HEARSE DRIVER Narrative [facility] - 12/20/2024 1:49 AM HEARSE DRIVER Daily except Saturday and . Morning draw. Jared Davis MD LAB BLOOD ORDERABLES Final R esult Performing Organization Address City/[facility]/ZIP Co de Phone Number [facility] Department [place] [address] * Histoplasma Antigen Urine (12/19/2024 10:25 PM HEARSE DRIVER) Histo Ag Ur result None Detected None Detected [facility] Ag Ur interp Negative Negative [facility] Comment: Result Interpretation: Reference interval: None Detected Results reported as ng/mL in 0.20 - 20.00 ng/mL range Results above 20.00 ng/mL are reported as 'Positive, Above the Limit of Quantification' Testing Performed by: [facility], [address] [place] [address] [place] [id number]. This test was developed and its performance characteristics determined by [facility]. It has not been cleared or approved by the FDA; however, FDA clearance or approval is not currently required for clinical use. The results are not intended to be used as the sole means for clinical diagnosis or patient management decisions. Interpretative data updated 01/16/2021 Urine 12/19/2024 10:2 5 PM HEARSE DRIVER 12/19/2024 11:39 PM HEARSE DRIVER Jared Davis MD LAB MICROBIOLOGY - GENERAL O RDERABLES Final Result [facility] [place] [address] * POCT glucose (12/19/2024 7:55 PM HEARSE DRIVER) [facility] Glucose, POC 121 70 - 199 mg/dL Blood 12/19/2024 7:55 PM HEARSE DRIVER 12/19/2024 7:55 PM HEARSE DRIVER Brody Park MD LAB POCT ORDERABLES - DEVICE Final Result [facility] [place] [address] * POCT glucose (12/19/2024 6:05 PM HEARSE DRIVER) Glucose, POC 111 70 - 199 mg/dL Blood 12/19/2024 6:0 5 PM HEARSE DRIVER 12/19/2024 6:05 PM HEARSE DRIVER Brody Park MD LAB POCT ORDERABLES - DEVICE Final Result Performing Organization Address City/[facility] Co de Phone Number [facility] [place] [address] * (ABNORMAL) POCT glucose (12/19/2024 11:42 AM HEARSE DRIVER) Glucose, POC 211(H) 70 - 199 mg/dL Blood 12/19/2024 11:4 2 AM HEARSE DRIVER 12/19/2024 11:42 AM HEARSE DRIVER Brody Park MD LAB POCT ORDERABLES - DEVICE Final Result Performing Organization Address [facility] de Phone Number Z[facility]LEMA [facility] [place] [address] * CT Chest Abdomen Pelvis W Contrast (12/19/2024 9:00 AM HEARSE DRIVER) Anatomical Region Laterality Modality Body N/A Computed Tomogra phy 12/19/2024 11:1 5 AM HEARSE DRIVER Impressions 12/19/2024 12:43 PM HEARSE DRIVER 1. 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 2. No significant interval change of cavitary lesions in both lung apices, which are also compatible with sequela of nontuberculous mycobacterial infection. 3. Morphologic findings of hepatic fibrosis. Heterogeneous enhancement in the liver parenchyma that can be related to phase of contrast or hepatic fibrosis Dictated by: Chad Peralta M.D. The radiology attending physician has personally reviewed this study, and had reviewed and/or edited this written report and agrees with it. Electronically signed by: Michael Camacho M.D. Narrative 12/19/2024 12:43 PM HEARSE DRIVER EXAMINATION: Computed tomography of the chest, abdomen and pelvis with intravenous contrast HISTORY: 59-year-old with history of cavitary pneumonia. TECHNIQUE: Transaxial computed tomographic images of the chest, abdomen and pelvis were obtained with intravenous contrast according to the standard protocol after the uneventful administration of 69 mL Opti-Ray 350 intravenous contrast. COMPARISON: CT chest dated 11/23/[address] chest and abdomen dated 11/16/2024 FINDINGS: Chest: There are biapical cavitary lesions which are unchanged in size. There are scattered pulmonary nodules some of which may be cavitary and tree in bud nodularity in the lungs bilaterally. For reference there is a pulmonary nodule in the left upper lung measuring 8 mm seen on series 3 image 86 and a right lower lobe pulmonary nodule measuring 6 mm seen on series 3 image 67. There is bronchiectasis. There is diffuse centrilobular emphysema. There is soft tissue extending from the right hilum that encases the upper branch of the right pulmonary artery. No pleural effusion or pneumothorax. No new lobar consolidation. No pulmonary edema. No axillary or supraclavicular lymphadenopathy. No definite mediastinal or hilar lymphadenopathy. Heart size is normal. Coronary artery calcifications are present. Small pericardial effusion without pericardial thickening. Retained debris in the esophagus which places the patient at an increased risk of aspiration. Abdomen/Pelvis: No focal lesion in the liver. Focal fat deposition along the falciform ligament. Heterogeneous enhancement of the liver with hypertrophy of the left lateral liver and atrophy of the right hemiliver and liver segment 4A and 4B. No intrahepatic or extra hepatic biliary duct dilatation. Gallbladder surgically absent. Adrenal glands are normal. Small spleniform tissue in the left upper quadrant of the abdomen that may represent atrophic spleen are prominent splenule if there has been prior splenectomy. 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 This can represent lymphangioma or postoperative collection. Kidneys no evidence of hydronephrosis. There are areas of renal cortical scarring. Multiple areas of hypoattenuation that are too small to characterize. Bladder is normal. Prostate is present. Colonic diverticulosis without diverticulitis. Small bowel and colon are normal in course and caliber. No intraperitoneal free air or free fluid. No abdominal or pelvic lymphadenopathy. Severe atherosclerosis of the abdominal aorta. Abdominal aorta is normal in caliber. No suspicious osseous lesion. Procedure Note Michael Camacho MD - 12/19/2024 EXAMINATION: Computed tomography of the chest, abdomen and pelvis with intravenous contrast HISTORY: 59-year-old with history of cavitary pneumonia. TECHNIQUE: Transaxial computed tomographic images of the chest, abdomen and pelvis were obtained with intravenous contrast according to the standard protocol after the uneventful administration of 69 mL Opti-Ray 350 intravenous contrast. COMPARISON: CT chest dated 11/23/[address] chest and abdomen dated 11/16/2024 FINDINGS: Chest: There are biapical cavitary lesions which are unchanged in size. There are scattered pulmonary nodules some of which may be cavitary and tree in bud nodularity in the lungs bilaterally. For reference there is a pulmonary nodule in the left upper lung measuring 8 mm seen on series 3 image 86 and a right lower lobe pulmonary nodule measuring 6 mm seen on series 3 image 67. There is bronchiectasis. There is diffuse centrilobular emphysema. There is soft tissue extending from the right hilum that encases the upper branch of the right pulmonary artery. No pleural effusion or pneumothorax. No new lobar consolidation. No pulmonary edema. No axillary or supraclavicular lymphadenopathy. No definite mediastinal or hilar lymphadenopathy. Heart size is normal. Coronary artery calcifications are present. Small pericardial effusion without pericardial thickening. Retained debris in the esophagus which places the patient at an increased risk of aspiration. Abdomen/Pelvis: No focal lesion in the liver. Focal fat deposition along the falciform ligament. Heterogeneous enhancement of the liver with hypertrophy of the left lateral liver and atrophy of the right hemiliver and liver segment 4A and 4B. No intrahepatic or extra hepatic biliary duct dilatation. Gallbladder surgically absent. Adrenal glands are normal. Small spleniform tissue in the left upper quadrant of the abdomen that may represent atrophic spleen are prominent splenule if there has been prior splenectomy. 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 This can represent lymphangioma or postoperative collection. Kidneys no evidence of hydronephrosis. There are areas of renal cortical scarring. Multiple areas of hypoattenuation that are too small to characterize. Bladder is normal. Prostate is present. Colonic diverticulosis without diverticulitis. Small bowel and colon are normal in course and caliber. No intraperitoneal free air or free fluid. No abdominal or pelvic lymphadenopathy. Severe atherosclerosis of the abdominal aorta. Abdominal aorta is normal in caliber. No suspicious osseous lesion. IMPRESSION: 1. 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 2. No significant interval change of cavitary lesions in both lung apices, which are also compatible with sequela of nontuberculous mycobacterial infection. 3. Morphologic findings of hepatic fibrosis. Heterogeneous enhancement in the liver parenchyma that can be related to phase of contrast or hepatic fibrosis Dictated by: Chad Peralta M.D. The radiology attending physician has personally reviewed this study, and had reviewed and/or edited this written report and agrees with it. Electronically signed by: Michael Camacho M.D. us Jared Davis MD IMG CT PROCEDURES Final Resu lt * POCT glucose (12/19/2024 7:47 AM HEARSE DRIVER) Glucose, POC 112 70 - 199 mg/dL Blood 12/19/2024 7:47 AM HEARSE DRIVER 12/19/2024 7:47 AM HEARSE DRIVER us Brody Park MD LAB POCT ORDERABLES - DEVICE Final Result [facility] Department [place] [address] * eGFR (12/19/2024 4:40 AM HEARSE DRIVER) eGFR >90 >=60 mL/min/1. 73 m2 Comment: Interpretive Data Reference Interval Normal >/= 90 mL/min/1.73m2 Mildly decreased* 60 - 89 mL/min/1.73m2 Mildly to moderately decreased 45 - 59 mL/min/1.73m2 Moderately to severely decreased 30 - 44 mL/min/1.73m2 Severely decreased 15 - 29 mL/min/1.73m2 Kidney Failure < 15 mL/min/1.73m2 *Relative to young adult level Estimated glomerular [...] interpretive data was last reviewed 2021. Blood 12/19/2024 4:40 AM HEARSE DRIVER 12/19/2024 4:51 AM HEARSE DRIVER us Jared Davis MD LAB BLOOD ORDERABLES Final R esult [facility] Department [place] [address] * (ABNORMAL) Manual Differential (12/19/2024 4:40 AM HEARSE DRIVER) Differential Manual Cells Counted [address] [facility] Neutrophil abs 6.0 1.5 - 6.5 K/cumm [facility] Imm gran abs 0.0 0.0 - 0.1 K/cumm [facility] Lymphocyte abs 3.4(H) 0.8 - 3.3 K/cumm [facility] Monocyte abs 1.3(H) 0.2 - 0.8 K/cumm [facility] Eosinophil abs 0.2 0.0 - 0.5 K/cumm [facility] Neutrophil pct 55.5 % [facility] Comment: Interpretive Data Percent cell count reference ranges are not reported, since discordance with absolute values may lead to misinterpretation of CBC data. Current Interpretive Data was last revised on 2018. Lymphocyte pct 30.8 % [facility] Comment: Interpretive Data Percent cell count reference ranges are not reported, since discordance with absolute values may lead to misinterpretation of CBC data. Current Interpretive Data was last revised on 2018. Monocyte pct 12.0 % [facility] Comment: Interpretive Data Percent cell count reference ranges are not reported, since discordance with absolute values may lead to misinterpretation of CBC data. Current Interpretive Data was last revised on 2018. Eosinophil pct 1.7 % [facility] Comment: Interpretive Data Percent cell count reference ranges are not reported, since discordance with absolute values may lead to misinterpretation of CBC data. Current Interpretive Data was last revised on 2018. RBC morphology Present(A) [facility] Anisocytosis Moderate(A) [facility] Macrocytes 8-15/HPF(A) [facility] Platelet estimate Adequate [facility] Blood 12/19/2024 4:40 AM HEARSE DRIVER 12/19/2024 4:51 AM HEARSE DRIVER us Jared Davis MD LAB BLOOD ORDERABLES Edited Result - Final Performing Organization Address [facility] Co de Phone Number [facility] [place] [address] * Hepatitis B surface antibody (immune status) Blood (12/19/2024 4:40 AM HEARSE DRIVER) Pathologist [facility] HBsAb (immune status) Nonreactive Comment:This result is consi stent with a lack of immunity to Hepatitis B Virus when used in the setting of routine screening. Current interpretative data was last revised on 22 Blood 12/19/2024 4:40 AM HEARSE DRIVER 12/19/2024 4:51 AM HEARSE DRIVER us Brody Park MD LAB MICROBIOLOGY - GENERAL O RDERABLES Final Result Performing Organization Address [facility] Co de Phone Number [facility] Department [place] [address] * (ABNORMAL) CBC without differential (12/19/2024 4:40 AM HEARSE DRIVER) WBC 10.9(H) 3.8 - 9.9 K/cumm Hgb 10.6(L) 13.0 - 17.5 g/dL [facility] Hct 32.1(L) 38.9 - 50.3 % [facility] Plt 308 150 - 400 K/cumm [facility] MPV 11.1 9.1 - 12.3 fL [facility] RBC 3.13(L) 4.30 - 5.80 M/cumm [facility] MCV 102.6(H) 81.3 - 96.4 fL [facility] MCH 33.9(H) 27.1 - 33.3 pg [facility] MCHC 33.0 32.3 - 35.7 g/dL [facility] RDW CV 13.9 11.1 - 14.9 % [facility] RDW SD 52.9(H) 35.7 - 48.1 fL [facility] NRBC abs 0.04(H) 0.00 - 0.01 K/cumm [facility] Blood 12/19/2024 4:40 AM HEARSE DRIVER 12/19/2024 4:51 AM HEARSE DRIVER us Jared Davis MD LAB BLOOD ORDERABLES Final R esult Performing Organization Address [facility] de Phone Number [facility] Department [place] [address] * (ABNORMAL) Phosphorus (12/19/2024 4:40 AM HEARSE DRIVER) Phosphorus, pl 1.8(L) 2.3 - 4.5 mg/dL Blood 12/19/2024 4:40 AM HEARSE DRIVER 12/19/2024 4:51 AM HEARSE DRIVER us Jared Davis MD LAB BLOOD ORDERABLES Final R esult Performing Organization Address City/[facility] de Phone Number [facility] Department [place] [address] * Magnesium (12/19/2024 4:40 AM HEARSE DRIVER) Magnesium 1.8 1.4 - 2.5 mg/dL Blood 12/19/2024 4:40 AM HEARSE DRIVER 12/19/2024 4:51 AM HEARSE DRIVER us Jared Davis MD LAB BLOOD ORDERABLES Final R esult Performing Organization Address City/[facility] Co de Phone Number [facility] Department [place] [address] * (ABNORMAL) Hepatic function panel (12/19/2024 4:40 AM HEARSE DRIVER) [facility] Bilirubin, total 0.5 0.1 - 1.2 mg/dL Bilirubin, direct 0.3 0.1 - 0.3 mg/dL [facility] Protein, pl 6.2(L) 6.5 - 8.5 g/dL [facility] Albumin 2.8(L) 3.5 - 5.0 g/dL [facility] Alk phos 161(H) 40 - 130 Units/L [facility] ALT 1,003(H) 7 - 55 Units/L [facility] AST 139(H) 10 - 50 Units/L [facility] Blood 12/19/2024 4:40 AM HEARSE DRIVER 12/19/2024 4:51 AM HEARSE DRIVER Kay La MD LAB BLOOD ORDERABLES Pilar l Result [facility] Department [place] [address] * (ABNORMAL) Basic metabolic panel (12/19/2024 4:40 AM HEARSE DRIVER) [facility] Sodium 141 135 - 145 mmol/L Potassium, pl 3.7 3.3 - 4.9 mmol/L [facility] Chloride 101 97 - 110 mmol/L [facility] CO2 36(H) 22 - 32 mmol/L [facility] Anion gap 4 2 - 15 mmol/L [facility] BUN 10 6 - 25 mg/dL [facility] Creatinine 0.69(L) 0.80 - 1.30 mg/dL [facility] Glucose 136 70 - 199 mg/dL [facility] Comment: Interpretive Data Fasting glucose >/= 126 mg/dl is diagnostic for diabetes. Fasting is defined as no caloric intake [...] 2022. Calcium 8.5 8.5 - 10.3 mg/dL [facility] Blood 12/19/2024 4:40 AM HEARSE DRIVER 12/19/2024 4:51 AM HEARSE DRIVER Narrative [facility] - 12/19/2024 5:16 AM HEARSE DRIVER Daily except Saturday and . Morning draw. us Jared Davis MD LAB BLOOD ORDERABLES Final R esult [facility] Department [place] [address] * Urinalysis reflex to microscopic and culture Urine, clean voided (12/18/2024 10:01 PM HEARSE DRIVER) Color, ur Straw Yellow Clarity, ur Clear Clear [facility] Specific gravity, ur 1.021 1.003 - 1.030 [facility] pH, urine 6.5 [facility] Comment: Interpretive Data U rine pH is affected by diet, medications, systemic acid-base disturbances, and renal tubular function. pH may affect urinary stone formation. For example, urine pH below 6.0 may help reduce the tendency for calcium phosphate stones and pH greater than 6.0 may reduce the tendency for uric acid stone formation. Source: [facility] [employer] Current Interpretive Data was last revised on 2017 Protein, ur ql Trace Negative [facility] Glucose, ur ql Negative Negative [facility] Ketones, ur Trace Negative [facility] Bilirubin, ur Negative Negative [facility] Blood, ur Negative Negative [facility] Urobilinogen, ur <2.0 <2.0 mg/dL [facility] Nitrite, ur Negative Negative [facility] Leukocyte esterase, ur Negative Negative [facility] UA reflex comment Reflex conditions for microscopic UA and culture not met. [facility] Urine, clean voided 12/18/2024 10:01 PM HEARSE DRIVER 12/18/2024 10:41 PM HEARSE DRIVER Kay aL MD LAB MICROBIOLOGY - GENERA L ORDERABLES Final Result Performing Organization Address [facility] de Phone Number [facility] [place] [address] * Legionella antigen Urine (12/18/2024 10:01 PM HEARSE DRIVER) Legionella Ag Negative Negative Comment: Interpretive Data This test detects only Legionella pneumophila serogroup 1 antigen. Testing performed by [facility] ([phone]). Current interpretive data was last revised on 2020. Urine 12/18/2024 10:0 1 PM HEARSE DRIVER 12/18/2024 10:44 PM HEARSE DRIVER Kay La MD LAB MICROBIOLOGY - GENERA L ORDERABLES Final Result Performing Organization Address [facility] Co de Phone Number [facility] Department [place] [address] * XR Chest 1 View (12/18/2024 8:55 PM HEARSE DRIVER) Anatomical Region Laterality Modality Body, Chest N/A Computed Radiogr aphy 12/19/2024 7:37 AM HEARSE DRIVER Impressions 12/19/2024 7:37 AM HEARSE DRIVER The current study is compared with the prior radiograph dated 07/31/2024. The lungs are extremely well expanded. 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 There is perhaps very slight worsening of volume loss in the right upper lobe. Additional smaller focus of consolidation is seen again in the left upper lobe. Also compatible with known atypical mycobacterial infection. Findings were better assessed on recent CT from 11/23/2024. The heart is normal in size. There are no effusions. There is no pneumothorax Electronically signed by: Pearl Carvalho M.D. Narrative 12/19/2024 7:37 AM HEARSE DRIVER EXAMINATION: 1 view chest radiograph Procedure Note Pearl Carvalho MD - 12/19/2024 EXAMINATION: 1 view chest radiograph IMPRESSION: The current study is compared with the prior radiograph dated 07/31/2024. The lungs are extremely well expanded. 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 There is perhaps very slight worsening of volume loss in the right upper lobe. Additional smaller focus of consolidation is seen again in the left upper lobe. Also compatible with known atypical mycobacterial infection. Findings were better assessed on recent CT from 11/23/2024. The heart is normal in size. There are no effusions. There is no pneumothorax Electronically signed by: Pearl Carvalho M.D. us Jared Davis MD IMG XR PROCEDURES Final Resu lt * Troponin I high-sensitivity (12/18/2024 8:21 PM HEARSE DRIVER) Trop I hs 4 <=35 ng/L Comment: Interpretive Data For further hscTnI resources including the diagnostic algorithm and an aid in interpretation, copy and paste this link: https://bjhlab.testcatalog.org/show/hsTrop-1 Current Interpretive Data last revised 2020. Blood 12/18/2024 8:21 PM HEARSE DRIVER 12/18/2024 8:38 PM HEARSE DRIVER us Kay La MD LAB BLOOD ORDERABLES Pilar l Result [facility] Department [place] [address] * Lactate (12/18/2024 8:21 PM HEARSE DRIVER) Lactate 1.3 0.7 - 2.0 mmol/L Blood 12/18/2024 8:21 PM HEARSE DRIVER 12/18/2024 8:38 PM HEARSE DRIVER Kay La MD LAB BLOOD ORDERABLES Pilar l Result Performing Organization Address [facility] Co de Phone Number [facility] Department [place] [address] * eGFR (12/18/2024 8:21 PM HEARSE DRIVER) [facility] eGFR >90 >=60 mL/min/1. 73 m2 Comment: Interpretive Data Reference Interval Normal >/= 90 mL/min/1.73m2 Mildly decreased* 60 - 89 mL/min/1.73m2 Mildly to moderately decreased 45 - 59 mL/min/1.73m2 Moderately to severely decreased 30 - 44 mL/min/1.73m2 Severely decreased 15 - 29 mL/min/1.73m2 Kidney Failure < 15 mL/min/1.73m2 *Relative to young adult level Estimated glomerular [...] interpretive data was last reviewed 2021. Blood 12/18/2024 8:21 PM HEARSE DRIVER 12/18/2024 8:38 PM HEARSE DRIVER us Jared Davis MD LAB BLOOD ORDERABLES Final R esult Performing Organization Address [facility] Co de Phone Number [facility] Department [place] [address] * Respiratory pathogen panel Nasopharyngeal (12/18/2024 8:21 PM HEARSE DRIVER) [facility] Influenza A RNA Not Detected Not Detected Influenza B RNA Not Detected Not Detected [facility] RSV RNA Not Detected Not Detected [facility] COVID-19 RNA Not Detected Not Detected [facility] Coronavirus 229E RNA Not Detected Not Detected [facility] Coronavirus HKU1 RNA Not Detected Not Detected [facility] Coronavirus NL63 RNA Not Detected Not Detected [facility] Coronavirus OC43 RNA Not Detected Not Detected [facility] Adenovirus DNA Not Detected Not Detected [facility] [...] Not Detected Not Detected [facility] Nasopharyngeal 12/18/2024 8: 21 PM HEARSE DRIVER 12/18/2024 8:44 PM HEARSE DRIVER Narrative [facility] - 12/18/2024 10:16 PM HEARSE DRIVER Is the Patient experiencing symptoms consistent with COVID?->Unknown Surveillance testing for transplant patient?->No Interpretive Data [employer] Film[employer] Respiratory Panel (RP2.1) assay is a [...] cross-react with some isolates of Coronavirus HKU1. A dual positive result may be due to cross-reactivity or may indicate a co- infection. The detection and identification of specific viral and bacterial nucleic acids from individuals exhibiting signs and symptoms of a respiratory infection aids in the diagnosis of respiratory infection if used in conjunction with other clinical and epidemiological information. The results of this test should not be used as the sole basis for diagnosis, treatment, or other management decisions. Negative results in the setting of a respiratory illness may be due to infection with pathogens that are not detected by this test. Positive results do not rule out infection/co-infection with other organisms. The agent(s) detected by the FilmArray RP2.1 may not be the definite cause of disease. Additional testing (lab, imaging, etc.) may be necessary when evaluating a patient with possible respiratory tract infection. The FilmArray RP2.1 assay has FDA clearance for testing of TESTING 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 swabs. The performance of additional specimen types has been assessed by the performing laboratory. The performance characteristics of this assay have been determined by [facility]ious Disease [facility]. Current interpretive data was last revised on 22. Kay La MD LAB MICROBIOLOGY - GENERA L ORDERABLES Final Result [facility] Department [place] [address] * (ABNORMAL) Bartonella antibody panel Blood (12/18/2024 8:21 PM HEARSE DRIVER) B Henselae, IgG 1:1024(A) <1:128 titer [facility] Comment:Results suggest rece nt infection. B Henselae, IgM <1:20 <1:20 titer [facility] B. Brown, IgG <1:128 <1:128 titer [facility] B. Brown, IgM <1:20 <1:20 titer [facility] Comment: ADDITIONAL INFORMATION This test was developed and its performance characteristics determined by [facility] in a manner consistent with CLIA requirements. This test has not been cleared or approved by the U.S. Food and Drug Administration. Test Performed by: [facility] [address] [place] [address] Supply Controller: Cayden Orellana Ph.D.; CLIA# [id number] Blood 12/18/2024 8:21 PM HEARSE DRIVER 12/19/2024 1:10 PM HEARSE DRIVER us Brody Park MD LAB MICROBIOLOGY - GENERAL O RDERABLES Final Result Performing Organization Address [facility] de Phone Number [facility] [place] [address] [place] [facility] * Hepatitis panel, acute Blood (12/18/2024 8:21 PM HEARSE DRIVER) Pathologist [facility] Hep A IgM Nonreactive Nonreactive Hep B core IgM Nonreactive Nonreactive [facility] Hep C Ab Nonreactive Nonreactive [facility] Comment:Antibodies to HCV no t detected. Does NOT exclude the possibility of recent exposure to HCV. Current interpretive data was last revised on 22 HepBsAg Nonreactive Nonreactive [facility] Blood 12/18/2024 8:21 PM HEARSE DRIVER 12/18/2024 8:43 PM HEARSE DRIVER us Kay La MD LAB MICROBIOLOGY - GENERA L ORDERABLES Final Result Performing Organization Address [facility] Co de Phone Number [facility] [place] [address] * (ABNORMAL) Manual Differential (12/18/2024 8:21 PM HEARSE DRIVER) Differential Manual Cells Counted 115 [facility] Neutrophil abs 7.6(H) 1.5 - 6.5 K/cumm [facility] Imm gran abs 0.0 0.0 - 0.1 K/cumm [facility] Lymphocyte abs 4.3(H) 0.8 - 3.3 K/cumm [facility] Monocyte abs 1.3(H) 0.2 - 0.8 K/cumm [facility] Eosinophil abs 0.1 0.0 - 0.5 K/cumm [facility] Basophil abs 0.4(H) 0.0 - 0.1 K/cumm [facility] Neutrophil pct 55.6 % [facility] Comment: Interpretive Data Percent cell count reference ranges are not reported, since discordance with absolute values may lead to misinterpretation of CBC data. Current Interpretive Data was last revised on 2018. Lymphocyte pct 31.3 % [facility] Comment: Interpretive Data Percent cell count reference ranges are not reported, since discordance with absolute values may lead to misinterpretation of CBC data. Current Interpretive Data was last revised on 2018. Monocyte pct 9.6 % [facility] Comment: Interpretive Data Percent cell count reference ranges are not reported, since discordance with absolute values may lead to misinterpretation of CBC data. Current Interpretive Data was last revised on 2018. Eosinophil pct 0.9 % [facility] Comment: Interpretive Data Percent cell count reference ranges are not reported, since discordance with absolute values may lead to misinterpretation of CBC data. Current Interpretive Data was last revised on 2018. Basophil pct 2.6 % [facility] Comment: Interpretive Data Percent cell count reference ranges are not reported, since discordance with absolute values may lead to misinterpretation of CBC data. Current Interpretive Data was last revised on 2018. RBC morphology Present(A) [facility] Anisocytosis Marked(A) [facility] Macrocytes > 15/HPF(A) [facility] Platelet estimate Adequate [facility] Blood 12/18/2024 8:21 PM HEARSE DRIVER 12/18/2024 8:38 PM HEARSE DRIVER us Jared Davis MD LAB BLOOD ORDERABLES Edited Result - Final [facility] Department [place] [address] * Blood culture Blood (12/18/2024 8:21 PM HEARSE DRIVER) Report Final Report: No growth Blood 12/18/2024 8:21 PM HEARSE DRIVER 12/18/2024 8:38 PM HEARSE DRIVER Narrative [facility] - 12/23/2024 7:00 AM HEARSE DRIVER Collection->Peripheral 1. Blood cultures are incubated for 4 days on [...] can result in false negative blood cultures. 4. For pediatric patients, the recommended blood volume to collect follows a weight based strategy. See the electronic test catalog for collection instructions. 5. For positive blood cultures, a rapid molecular test may be performed for organism identification using the michel ePlex blood culture identification panel for gram positive (BCID-GP) and gram negative (BCID-GN) organisms. This nucleic acid amplification test detects microbial DNA in positive blood culture broth. This assay has been cleared by the [place] Food and Drug Administration and its performance characteristics have been verified by the [facility] Microbiology Laboratory. For questions about this culture, contact the Microbiology Laboratory at [phone]. Interpretive data was last revised on 24. Kay La MD LAB MICROBIOLOGY - GENERA L ORDERABLES Final Result [facility] Department [place] [address] * aPTT (12/18/2024 8:21 PM HEARSE DRIVER) aPTT 33 28 - 38 sec Comment: Interpretive Data Heparin therapeutic range: 66.0 - 100.0 seconds. Range based on correlation with therapeutic heparin activity range of 0.3 - 0.7 Units/mL. Current interpretive data was last revised on 2023. Blood 12/18/2024 8:21 PM HEARSE DRIVER 12/18/2024 8:42 PM HEARSE DRIVER Jared Davis MD LAB BLOOD ORDERABLES Final R esult Performing Organization Address [facility] Co de Phone Number [facility] [place] [address] * (ABNORMAL) Protime-INR (12/18/2024 8:21 PM HEARSE DRIVER) PT 16.2(H) 9.7 - 13.0 sec INR 1.49(H) 0.90 - 1.20 [facility] Comment: Interpretive data Oral anticoagulant therapeutic ranges: Venous thromboembolism prophylaxis or treatment: 2.0-3.0 CARDIOLOGY Standard range: 2.0-3.0 High-intensity range: 2.5-3.5 Refer to indication-specific guidelines for appropriate target ranges for prosthetic heart valve replacement. Current interpretive data was last revised on 2019. Blood 12/18/2024 8:21 PM HEARSE DRIVER 12/18/2024 8:42 PM HEARSE DRIVER Jared Davis MD LAB BLOOD ORDERABLES Final R esult Performing Organization Address [facility] Co de Phone Number [facility] Department [place] [employer] [place] [address] * (ABNORMAL) Fibrinogen (12/18/2024 8:21 PM HEARSE DRIVER) Pathologist [facility] Fibrinogen 457(H) 170 - 400 mg/dL Blood 12/18/2024 8:21 PM HEARSE DRIVER 12/18/2024 8:42 PM HEARSE DRIVER Jared Davis MD LAB BLOOD ORDERABLES Final R esult Performing Organization Address [facility] Co de Phone Number [facility] [employer] [place] [address] * (ABNORMAL) CBC without differential (12/18/2024 8:21 PM HEARSE DRIVER) WBC 13.6(H) 3.8 - 9.9 K/cumm Hgb 11.9(L) 13.0 - 17.5 g/dL [facility] Hct 36.2(L) 38.9 - 50.3 % [facility] Plt 357 150 - 400 K/cumm [facility] MPV 11.0 9.1 - 12.3 fL [facility] RBC 3.53(L) 4.30 - 5.80 M/cumm [facility] MCV 102.5(H) 81.3 - 96.4 fL [facility] MCH 33.7(H) 27.1 - 33.3 pg [facility] MCHC 32.9 32.3 - 35.7 g/dL [facility] RDW CV 13.9 11.1 - 14.9 % [facility] RDW SD 52.5(H) 35.7 - 48.1 fL [facility] NRBC abs 0.03(H) 0.00 - 0.01 K/cumm [facility] Blood 12/18/2024 8:21 PM HEARSE DRIVER 12/18/2024 8:38 PM HEARSE DRIVER Jared Davis MD LAB BLOOD ORDERABLES Final R esult Performing Organization Address City/[facility]/ZIP Co de Phone Number [facility] [place] [address] * Type and screen (12/18/2024 8:21 PM HEARSE DRIVER) Ursula, indirect Negative ABO Rh A Positive [facility] Blood 12/18/2024 8:21 PM HEARSE DRIVER 12/18/2024 8:33 PM HEARSE DRIVER Narrative [facility] - 12/18/2024 9:25 PM HEARSE DRIVER Has the patient had Daratumumab or Isatuximab in the past 6 months?->Unknown Jared Davis MD LAB BLOOD BANK TEST ORDERABL ES Final Result [facility] [place] [employer] [place] [address] * Infection Prevention MRSA Only (Staphylococcus aureus) Culture Nasal (12/18/2024 8:21 PM HEARSE DRIVER) Report Final Report: Negative Nasal 12/18/2024 8:21 PM HEARSE DRIVER 12/18/2024 8:39 PM HEARSE DRIVER Narrative [facility] - 12/20/2024 6:56 AM HEARSE DRIVER Testing performed by [facility] Microbiology Laboratory ([phone]). Kay La MD LAB MICROBIOLOGY - GENERA L ORDERABLES Final Result [facility] [place] [address] * Uric acid (12/18/2024 8:21 PM HEARSE DRIVER) Pathologist [facility] Uric acid 4.1 3.0 - 8.0 mg/dL Blood 12/18/2024 8:21 PM HEARSE DRIVER 12/18/2024 8:30 PM HEARSE DRIVER Jaerd Davis MD LAB BLOOD ORDERABLES Final R esult Performing Organization Address City/[facility] Co de Phone Number [facility] Department [place] [address] * (ABNORMAL) Phosphorus (12/18/2024 8:21 PM HEARSE DRIVER) Pathologist [facility] Phosphorus, pl 1.8(L) 2.3 - 4.5 mg/dL Blood 12/18/2024 8:21 PM HEARSE DRIVER 12/18/2024 8:30 PM HEARSE DRIVER Jared Davis MD LAB BLOOD ORDERABLES Final R esult Performing Organization Address City/[facility]/ZIP Co de Phone Number [facility] [place] [address] * Magnesium (12/18/2024 8:21 PM HEARSE DRIVER) Pathologist [facility] Magnesium 1.4 1.4 - 2.5 mg/dL Blood 12/18/2024 8:21 PM HEARSE DRIVER 12/18/2024 8:30 PM HEARSE DRIVER Jared Davis MD LAB BLOOD ORDERABLES Final R esult Performing Organization Address [facility] de Phone Number [facility] [place] [address] * Lactate dehydrogenase (LD) (12/18/2024 8:21 PM HEARSE DRIVER) Lactate dehydrogenase (LDH) 230 100 - 250 Units/L Blood 12/18/2024 8:21 PM HEARSE DRIVER 12/18/2024 8:30 PM HEARSE DRIVER Jared Davis MD LAB BLOOD ORDERABLES Final R esult Performing Organization Address [facility] Phone Number [facility] [place] [address] * (ABNORMAL) Creatine kinase (CK), total (12/18/2024 8:21 PM HEARSE DRIVER) CK <20(L) 40 - 300 Units/L Blood 12/18/2024 8:21 PM HEARSE DRIVER 12/18/2024 8:30 PM HEARSE DRIVER Josué Del Valle MD PhD LAB BLOOD ORDERABLES Fin al Result Performing Organization Address [facility] de Phone Number [facility] [employer] [place] [address] * Bilirubin, direct (12/18/2024 8:21 PM HEARSE DRIVER) Bilirubin, direct 0.3 0.1 - 0.3 mg/dL Blood 12/18/2024 8:21 PM HEARSE DRIVER 12/18/2024 8:30 PM HEARSE DRIVER Jared Davis MD LAB BLOOD ORDERABLES Final R esult [facility] [place] [address] * (ABNORMAL) Comprehensive metabolic panel (12/18/2024 8:21 PM HEARSE DRIVER) Sodium 142 135 - 145 mmol/L Potassium, pl 3.2(L) 3.3 - 4.9 mmol/L [facility] Chloride 100 97 - 110 mmol/L [facility] CO2 35(H) 22 - 32 mmol/L [facility] Anion gap 7 2 - 15 mmol/L [facility] BUN 12 6 - 25 mg/dL [facility] Creatinine 0.65(L) 0.80 - 1.30 mg/dL [facility] Glucose 141 70 - 199 mg/dL [facility] Comment: Interpretive Data Fasting glucose >/= 126 mg/dl is diagnostic for diabetes. Fasting is defined as no caloric intake [...] 2022. Calcium 9.3 8.5 - 10.3 mg/dL [facility] Bilirubin, total 0.6 0.1 - 1.2 mg/dL [facility] Protein, pl 7.6 6.5 - 8.5 g/dL [facility] Albumin 3.4(L) 3.5 - 5.0 g/dL [facility] Alk phos 196(H) 40 - 130 Units/L [facility] ALT 1,357(H) 7 - 55 Units/L [facility] AST 235(H) 10 - 50 Units/L [facility] Blood 12/18/2024 8:21 PM HEARSE DRIVER 12/18/2024 8:30 PM HEARSE DRIVER Jared Davis MD LAB BLOOD ORDERABLES Final R esult Performing Organization Address [facility] Co de Phone Number [facility] Department [place] [address] * ECG 12 lead (12/18/2024 6:22 PM HEARSE DRIVER) [facility] Signature Ventricular Rate EKG/Min 79 BPM [facility] Atrial Rate 79 BPM [facility] WA-Interval (MSEC) 152 ms [facility] QRS-Interval (MSEC) 88 ms [facility] QT-Interval (MSEC) 392 ms [facility] QTc 449 ms [facility] R Bagley 102 degrees [facility] T Bagley -1 degrees [facility] Diagnosis Sinus rhythm with occasional Premature ventricular complexes Rightward axis Poor R-wave progression in the precordial leads (cited on or before 18-DEC-2024) Abnormal ECG When compared with ECG of 28-NOV-2024 13:47, Premature ventricular complexes are now Present Confirmed by SOHAM WINTERS M.D ([id number]) on 12/21/2024 11:01:46 AM [facility] 12/18/2024 6:22 PM HEARSE DRIVER 12/21/2024 11:01 AM HEARSE DRIVER us Jared Davis MD ECG ORDERABLES Final Result Performing Organization Address [facility] Phone Number [facility] * POCT glucose (12/01/2024 12:16 PM HEARSE DRIVER) Glucose, POC 89 70 - 199 mg/dL Blood 12/01/2024 12:1 6 PM HEARSE DRIVER 12/01/2024 12:16 PM HEARSE DRIVER Josué Del Valle MD PhD LAB POCT ORDERABLES - DE VICE Final Result Performing Organization Address [facility] Co de Phone Number [facility] Department [place] [address] * POCT glucose (12/01/2024 8:16 AM HEARSE DRIVER) Pathologist [facility] Glucose, POC 171 70 - 199 mg/dL Blood 12/01/2024 8:16 AM HEARSE DRIVER 12/01/2024 8:16 AM HEARSE DRIVER us Josué Del Valle MD PhD LAB POCT ORDERABLES - DE VICE Final Result Performing Organization Address City/[facility]/ZIP Co de Phone Number [facility] [place] [address] * eGFR (12/01/2024 4:28 AM HEARSE DRIVER) [facility] eGFR 74 >=60 mL/min/1. 73 m2 Comment: Interpretive Data Reference Interval Normal >/= 90 mL/min/1.73m2 Mildly decreased* 60 - 89 mL/min/1.73m2 Mildly to moderately decreased 45 - 59 mL/min/1.73m2 Moderately to severely decreased 30 - 44 mL/min/1.73m2 Severely decreased 15 - 29 mL/min/1.73m2 Kidney Failure < 15 mL/min/1.73m2 *Relative to young adult level Estimated glomerular [...] last reviewed 2021. Blood 12/01/2024 4:28 AM HEARSE DRIVER 12/01/2024 4:52 AM HEARSE DRIVER us Juan A Chanel DO LAB BLOOD ORDERABLES Final Resul t Performing Organization Address City/[facility]/ZIP Co de Phone Number [facility] [place] [address] * (ABNORMAL) Manual Differential (12/01/2024 4:28 AM HEARSE DRIVER) [facility] Differential Manual Cells Counted 115 [facility] Neutrophil abs 5.8 1.5 - 6.5 K/cumm [facility] Imm gran abs 0.0 0.0 - 0.1 K/cumm [facility] Lymphocyte abs 3.1 0.8 - 3.3 K/cumm [facility] Monocyte abs 1.7(H) 0.2 - 0.8 K/cumm [facility] Eosinophil abs 0.2 0.0 - 0.5 K/cumm [facility] Neutrophil pct 53.9 % [facility] Comment: Interpretive Data Percent cell count reference ranges are not reported, since discordance with absolute values may lead to misinterpretation of CBC data. Current Interpretive Data was last revised on 2018. Lymphocyte pct 28.7 % [facility] Comment: Interpretive Data Percent cell count reference ranges are not reported, since discordance with absolute values may lead to misinterpretation of CBC data. Current Interpretive Data was last revised on 2018. Monocyte pct 15.7 % [facility] Comment: Interpretive Data Percent cell count reference ranges are not reported, since discordance with absolute values may lead to misinterpretation of CBC data. Current Interpretive Data was last revised on 2018. Eosinophil pct 1.7 % [facility] Comment: Interpretive Data Percent cell count reference ranges are not reported, since discordance with absolute values may lead to misinterpretation of CBC data. Current Interpretive Data was last revised on 2018. RBC morphology Present(A) [facility] Anisocytosis Marked(A) [facility] Macrocytes > 15/HPF(A) [facility] Platelet estimate Adequate [facility] Blood 12/01/2024 4:28 AM HEARSE DRIVER 12/01/2024 4:52 AM HEARSE DRIVER us Juan A Chanel DO LAB BLOOD ORDERABLES Final Resul t [facility] Department [place] [address] * (ABNORMAL) CBC without differential (12/01/2024 4:28 AM HEARSE DRIVER) WBC 10.8(H) 3.8 - 9.9 K/cumm Hgb 10.0(L) 13.0 - 17.5 g/dL [facility] Hct 30.5(L) 38.9 - 50.3 % [facility] Plt 303 150 - 400 K/cumm [facility] MPV 9.7 9.1 - 12.3 fL [facility] RBC 2.86(L) 4.30 - 5.80 M/cumm [facility] MCV 106.6(H) 81.3 - 96.4 fL [facility] MCH 35.0(H) 27.1 - 33.3 pg [facility] MCHC 32.8 32.3 - 35.7 g/dL [facility] RDW CV 14.0 11.1 - 14.9 % [facility] RDW SD 55.2(H) 35.7 - 48.1 fL [facility] NRBC abs 0.00 0.00 - 0.01 K/cumm [facility] Blood 12/01/2024 4:28 AM HEARSE DRIVER 12/01/2024 4:52 AM HEARSE DRIVER Juan A Chanel DO LAB BLOOD ORDERABLES Final Resul t Performing Organization Address City/[facility] Co de Phone Number [facility] Department [place] [employer] [place] [address] * Phosphorus (12/01/2024 4:28 AM HEARSE DRIVER) Pathologist [facility] Phosphorus, pl 2.9 2.3 - 4.5 mg/dL Blood 12/01/2024 4:28 AM HEARSE DRIVER 12/01/2024 4:52 AM HEARSE DRIVER Dominiquebertin Chanel DO LAB BLOOD ORDERABLES Final Resul t [facility] [place] [address] * Magnesium (12/01/2024 4:28 AM HEARSE DRIVER) Pathologist [facility] Magnesium 2.1 1.4 - 2.5 mg/dL Blood 12/01/2024 4:28 AM HEARSE DRIVER 12/01/2024 4:52 AM HEARSE DRIVER Dominiquebertin Chanel DO LAB BLOOD ORDERABLES Final Resul t [facility] Department [place] [address] * (ABNORMAL) Basic metabolic panel (12/01/2024 4:28 AM HEARSE DRIVER) Pathologist [facility] Sodium 137 135 - 145 mmol/L Potassium, pl 4.5 3.3 - 4.9 mmol/L [facility] Chloride 101 97 - 110 mmol/L [facility] CO2 30 22 - 32 mmol/L [facility] Anion gap 6 2 - 15 mmol/L [facility] BUN 38(H) 6 - 25 mg/dL [facility] Creatinine 1.15 0.80 - 1.30 mg/dL [facility] Glucose 171 70 - 199 mg/dL [facility] Comment: Interpretive Data Fasting glucose >/= 126 mg/dl is diagnostic for diabetes. Fasting is defined as no caloric intake [...] 2022. Calcium 9.0 8.5 - 10.3 mg/dL [facility] Blood 12/01/2024 4:28 AM HEARSE DRIVER 12/01/2024 4:52 AM HEARSE DRIVER Narrative [facility] - 12/01/2024 5:21 AM HEARSE DRIVER Daily except Saturday and . Morning draw. Juan A Chanel DO LAB BLOOD ORDERABLES Final Resul t Performing Organization Address City/[facility]/ZIP Co de Phone Number [facility] [place] [address] * POCT glucose (11/30/2024 8:47 PM HEARSE DRIVER) Glucose, POC 152 70 - 199 mg/dL Blood 11/30/2024 8:47 PM HEARSE DRIVER 11/30/2024 8:47 PM HEARSE DRIVER Josué Del Valle MD PhD LAB POCT ORDERABLES - DE VICE Final Result Performing Organization Address [facility] [place] [address] * POCT glucose (11/30/2024 4:47 PM HEARSE DRIVER) Glucose, POC 138 70 - 199 mg/dL Blood 11/30/2024 4:47 PM HEARSE DRIVER 11/30/2024 4:47 PM HEARSE DRIVER Josué Del Valle MD PhD LAB POCT ORDERABLES - DE VICE Final Result Performing Organization Address [facility] [place] [address] * CT Body Outside Consult (11/30/2024 2:25 PM HEARSE DRIVER) Anatomical Region Laterality Modality Body N/A Computed Tomogra phy 11/30/2024 3:50 PM HEARSE DRIVER Impressions 11/30/2024 4:09 PM HEARSE DRIVER 1. New patchy airspace opacity within the [...] images may or may not represent the pauma source data set and thus may contain changes that may lower the accuracy of this second-opinion interpretation. Dictated by: Chase iNeto MD The radiology attending physician has personally reviewed this study, and had reviewed and/or edited this written report and agrees with it. Electronically signed by: Zach Laurent M.D. Narrative 11/30/2024 4:09 PM HEARSE DRIVER EXAMINATION: RADIOLOGY CONSULTATION ON OUTSIDE IMAGING STUDY STUDY INITIALLY PERFORMED: 11/23/2024 at [facility]. 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 Unchanged scattered subcentimeter lymph nodes. Procedure Note Zach Laurent MD - 11/30/2024 EXAMINATION: RADIOLOGY CONSULTATION ON OUTSIDE IMAGING STUDY STUDY INITIALLY PERFORMED: 11/23/2024 at [facility]. 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 [id number]-mryu disease, known nontuberculous mycobacterial pulmonary infection on [...] images may or may not represent the pauma source data set and thus may contain [...] Result * POCT glucose (11/30/2024 11:55 AM HEARSE DRIVER) Glucose, POC 152 70 - 199 mg/dL Blood 11/30/2024 11:5 5 AM HEARSE DRIVER 11/30/2024 11:55 AM HEARSE DRIVER Josué Del Valle MD PhD LAB POCT ORDERABLES - DE VICE Final Result Performing Organization Address City/[facility] Co de Phone Number [facility] [place] [address] * Tacrolimus level trough (11/30/2024 8:54 AM HEARSE DRIVER) [facility] [place] Tacrolimus trough <1.0 ng/mL Comment: Undetectable. Please verify that the correct immunosuppressant test was requested. Interpretive Data Testing performed by liquid chromatography-tandem mass spectrometry. Therapeutic concentrations vary depending on type of transplanted organ and time elapsed since transplant. Typical trough concentrations range from 5-15 ng/mL. This test was developed and its performance characteristics determined by the [facility] consistent with CLIA requirements. This test has not been cleared or approved by the [place] Food and Drug administration. Current interpretive data last reviewed 2020. Blood 11/30/2024 8:54 AM HEARSE DRIVER 11/30/2024 9:10 AM HEARSE DRIVER Juan A Chanel DO LAB BLOOD ORDERABLES Final Resul t Performing Organization Address [facility] Co de Phone Number [facility] Department [place] [address] * POCT glucose (11/30/2024 8:37 AM HEARSE DRIVER) Pathologist [facility] Glucose, POC 124 70 - 199 mg/dL Blood 11/30/2024 8:37 AM HEARSE DRIVER 11/30/2024 8:37 AM HEARSE DRIVER Josué Del Valle MD PhD LAB POCT ORDERABLES - DE VICE Final Result Performing Organization Address [facility] Co me Phone Number [facility] [place] [address] * eGFR (11/30/2024 4:13 AM HEARSE DRIVER) [facility] eGFR 78 >=60 mL/min/1. 73 m2 Comment: Interpretive Data Reference Interval Normal >/= 90 mL/min/1.73m2 Mildly decreased* 60 - 89 mL/min/1.73m2 Mildly to moderately decreased 45 - 59 mL/min/1.73m2 Moderately to severely decreased 30 - 44 mL/min/1.73m2 Severely decreased 15 - 29 mL/min/1.73m2 Kidney Failure < 15 mL/min/1.73m2 *Relative to young adult level Estimated glomerular [...] last reviewed 2021. Blood 11/30/2024 4:13 AM HEARSE DRIVER 11/30/2024 4:44 AM HEARSE DRIVER us Juan A Chanel DO LAB BLOOD ORDERABLES Final Resul t [facility] Department [place] [address] * (ABNORMAL) Manual Differential (11/30/2024 4:13 AM HEARSE DRIVER) [facility] Differential Manual Cells Counted 117 [facility] Neutrophil abs 5.0 1.5 - 6.5 K/cumm [facility] Imm gran abs 0.0 0.0 - 0.1 K/cumm [facility] Lymphocyte abs 3.8(H) 0.8 - 3.3 K/cumm [facility] Monocyte abs 1.3(H) 0.2 - 0.8 K/cumm [facility] Eosinophil abs 0.2 0.0 - 0.5 K/cumm [facility] Neutrophil pct 48.7 % [facility] Comment: Interpretive Data Percent cell count reference ranges are not reported, since discordance with absolute values may lead to misinterpretation of CBC data. Current Interpretive Data was last revised on 2018. Lymphocyte pct 36.8 % [facility] Comment: Interpretive Data Percent cell count reference ranges are not reported, since discordance with absolute values may lead to misinterpretation of CBC data. Current Interpretive Data was last revised on 2018. Monocyte pct 12.8 % [facility] Comment: Interpretive Data Percent cell count reference ranges are not reported, since discordance with absolute values may lead to misinterpretation of CBC data. Current Interpretive Data was last revised on 2018. Eosinophil pct 1.7 % [facility] Comment: Interpretive Data Percent cell count reference ranges are not reported, since discordance with absolute values may lead to misinterpretation of CBC data. Current Interpretive Data was last revised on 2018. RBC morphology Present(A) [facility] Anisocytosis Marked(A) [facility] Macrocytes > 15/HPF(A) [facility] Platelet estimate Adequate [facility] Blood 11/30/2024 4:13 AM HEARSE DRIVER 11/30/2024 4:43 AM HEARSE DRIVER Juan A Chanel DO LAB BLOOD ORDERABLES Edited Resu lt - Final Performing Organization Address City/[facility]/ZIP Co de Phone Number [facility] Department [place] [employer] [place] [address] * (ABNORMAL) aPTT (11/30/2024 4:13 AM HEARSE DRIVER) aPTT 43(H) 28 - 38 sec Comment: Interpretive Data Heparin therapeutic range: 66.0 - 100.0 seconds. Range based on correlation with therapeutic heparin activity range of 0.3 - 0.7 Units/mL. Current interpretive data was last revised on 2023. Blood 11/30/2024 4:13 AM HEARSE DRIVER 11/30/2024 4:35 AM HEARSE DRIVER Juan A Chanel DO LAB BLOOD ORDERABLES Final Resul t [facility] [place] [address] * (ABNORMAL) Protime-INR (11/30/2024 4:13 AM HEARSE DRIVER) [facility] PT 15.9(H) 9.7 - 13.0 sec INR 1.46(H) 0.90 - 1.20 [facility] Comment: Interpretive data Oral anticoagulant therapeutic ranges: Venous thromboembolism prophylaxis or treatment: 2.0-3.0 CARDIOLOGY Standard range: 2.0-3.0 High-intensity range: 2.5-3.5 Refer to indication-specific guidelines for appropriate target ranges for prosthetic heart valve replacement. Current interpretive data was last revised on 2019. Blood 11/30/2024 4:13 AM HEARSE DRIVER 11/30/2024 4:35 AM HEARSE DRIVER us Juan A Chanel DO LAB BLOOD ORDERABLES Final Resul t [facility] Department [place] [address] * (ABNORMAL) CBC without differential (11/30/2024 4:13 AM HEARSE DRIVER) [facility] WBC 10.3(H) 3.8 - 9.9 K/cumm Hgb 10.0(L) 13.0 - 17.5 g/dL [facility] Hct 30.3(L) 38.9 - 50.3 % [facility] Plt 331 150 - 400 K/cumm [facility] MPV 10.1 9.1 - 12.3 fL [facility] RBC 2.89(L) 4.30 - 5.80 M/cumm [facility] MCV 104.8(H) 81.3 - 96.4 fL [facility] MCH 34.6(H) 27.1 - 33.3 pg [facility] MCHC 33.0 32.3 - 35.7 g/dL [facility] RDW CV 14.1 11.1 - 14.9 % [facility] RDW SD 54.3(H) 35.7 - 48.1 fL [facility] NRBC abs 0.00 0.00 - 0.01 K/cumm [facility] Blood 11/30/2024 4:13 AM HEARSE DRIVER 11/30/2024 4:43 AM HEARSE DRIVER [facility] BLOOD ORDERABLES Final Resul t Performing Organization Address [facility] Co de Phone Number [facility] [place] [address] * Type and screen (11/30/2024 4:13 AM HEARSE DRIVER) ABO Rh A Positive Ursula, indirect Negative [facility] Blood 11/30/2024 4:13 AM HEARSE DRIVER 11/30/2024 4:42 AM HEARSE DRIVER Narrative [facility] - 11/30/2024 5:52 AM HEARSE DRIVER Has the patient had Daratumumab or Isatuximab in the past 6 months?->Unknown Result [facility] BLOOD BANK TEST ORDERABLES F inal Result Performing Organization Address [facility] Co de Phone Number [facility] [place] [address] * Uric acid (11/30/2024 4:13 AM HEARSE DRIVER) Pathologist [facility] Uric acid 3.4 3.0 - 8.0 mg/dL Blood 11/30/2024 4:13 AM HEARSE DRIVER 11/30/2024 4:44 AM HEARSE DRIVER Narrative [facility] - 11/30/2024 5:14 AM HEARSE DRIVER Saturday and only. Morning draw. . [facility] LAB BLOOD ORDERABLES Final Resul t Performing Organization Address [facility] [place] [address] * Phosphorus (11/30/2024 4:13 AM HEARSE DRIVER) Phosphorus, pl 2.6 2.3 - 4.5 mg/dL Blood 11/30/2024 4:13 AM HEARSE DRIVER 11/30/2024 4:44 AM HEARSE DRIVER [facility] LAB BLOOD ORDERABLES Final Resul t Performing Organization Address [facility] de Phone Number [facility] [employer] [place] [address] * Magnesium (11/30/2024 4:13 AM HEARSE DRIVER) [facility] Magnesium 2.0 1.4 - 2.5 mg/dL Blood 11/30/2024 4:13 AM HEARSE DRIVER 11/30/2024 4:44 AM HEARSE DRIVER [facility] BLOOD ORDERABLES Final Resul t Performing Organization Address [facility] de Phone Number [facility] [place] [address] * Lactate dehydrogenase (LD) (11/30/2024 4:13 AM HEARSE DRIVER) [facility] Lactate dehydrogenase (LDH) 239 100 - 250 Units/L Blood 11/30/2024 4:13 AM HEARSE DRIVER 11/30/2024 4:44 AM HEARSE DRIVER Narrative [facility] - 11/30/2024 5:14 AM HEARSE DRIVER Saturday and only. Morning draw. [facility] BLOOD ORDERABLES Final Resul t Performing Organization Address [facility] [place] [address] * (ABNORMAL) Comprehensive metabolic panel (11/30/2024 4:13 AM HEARSE DRIVER) Pathologist [facility] Sodium 137 135 - 145 mmol/L Potassium, pl 4.4 3.3 - 4.9 mmol/L [facility] Chloride 100 97 - 110 mmol/L [facility] CO2 31 22 - 32 mmol/L [facility] Anion gap 6 2 - 15 mmol/L [facility] BUN 26(H) 6 - 25 mg/dL [facility] Creatinine 1.10 0.80 - 1.30 mg/dL [facility] Glucose 154 70 - 199 mg/dL [facility] Comment: Interpretive Data Fasting glucose >/= 126 mg/dl is diagnostic for diabetes. Fasting is defined as no caloric intake [...] 2022. Calcium 9.0 8.5 - 10.3 mg/dL [facility] Bilirubin, total 0.2 0.1 - 1.2 mg/dL [facility] Protein, pl 6.0(L) 6.5 - 8.5 g/dL [facility] Albumin 3.1(L) 3.5 - 5.0 g/dL [facility] Alk phos 132(H) 40 - 130 Units/L [facility] ALT 28 7 - 55 Units/L [facility] AST 29 10 - 50 Units/L [facility] Blood 11/30/2024 4:13 AM HEARSE DRIVER 11/30/2024 4:44 AM HEARSE DRIVER Narrative [facility] - 11/30/2024 5:14 AM HEARSE DRIVER Saturday and only. Morning draw. us Juan A Chanel DO LAB BLOOD ORDERABLES Final Resul t [facility] [place] [address] * POCT glucose (11/29/2024 9:06 PM HEARSE DRIVER) [facility] Signature Glucose, POC 178 70 - 199 mg/dL Blood 11/29/2024 9:06 PM HEARSE DRIVER 11/29/2024 9:06 PM HEARSE DRIVER us Josué Del Valle MD PhD LAB POCT ORDERABLES - DE VICE Final Result Performing Organization Address [facility] Phone Number [facility] [place] [address] * POCT glucose (11/29/2024 5:14 PM HEARSE DRIVER) Glucose, POC 103 70 - 199 mg/dL Blood 11/29/2024 5:14 PM HEARSE DRIVER 11/29/2024 5:14 PM HEARSE DRIVER us Josué Del Valle MD PhD LAB POCT ORDERABLES - DE VICE Final Result Performing Organization Address [facility] Phone Number [facility] [place] [address] * POCT glucose (11/29/2024 1:11 PM HEARSE DRIVER) Glucose, POC 115 70 - 199 mg/dL Blood 11/29/2024 1:11 PM HEARSE DRIVER 11/29/2024 1:11 PM HEARSE DRIVER us Josué Del Valle MD PhD LAB POCT ORDERABLES - DE VICE Final Result Performing Organization Address [facility] Phone Number [facility] [place] [address] * POCT glucose (11/29/2024 8:13 AM HEARSE DRIVER) Glucose, POC 84 70 - 199 mg/dL Blood 11/29/2024 8:13 AM HEARSE DRIVER 11/29/2024 8:13 AM HEARSE DRIVER us Josué Del Valle MD PhD LAB POCT ORDERABLES - DE VICE Final Result Performing Organization Address [facility]/ZIP Co de Phone Number CERN[facility] Department [place] [address] * eGFR (11/29/2024 12:29 AM HEARSE DRIVER) [facility] eGFR >90 >=60 mL/min/1. 73 m2 Comment: Interpretive Data Reference Interval Normal >/= 90 mL/min/1.73m2 Mildly decreased* 60 - 89 mL/min/1.73m2 Mildly to moderately decreased 45 - 59 mL/min/1.73m2 Moderately to severely decreased 30 - 44 mL/min/1.73m2 Severely decreased 15 - 29 mL/min/1.73m2 Kidney Failure < 15 mL/min/1.73m2 *Relative to young adult level Estimated glomerular [...] reviewed 2021. Blood 11/29/2024 12:2 9 AM HEARSE DRIVER 11/29/2024 1:35 AM HEARSE DRIVER Juan A Chanel DO LAB BLOOD ORDERABLES Final Resul t [facility] Department [place] [address] * (ABNORMAL) Manual Differential (11/29/2024 12:29 AM HEARSE DRIVER) [facility] Differential Manual Cells Counted 115 [facility] Neutrophil abs 4.0 1.5 - 6.5 K/cumm [facility] Imm gran abs 0.0 0.0 - 0.1 K/cumm [facility] Lymphocyte abs 3.2 0.8 - 3.3 K/cumm [facility] Monocyte abs 0.9(H) 0.2 - 0.8 K/cumm [facility] Eosinophil abs 0.2 0.0 - 0.5 K/cumm [facility] Neutrophil pct 47.8 % [facility] Comment: Interpretive Data Percent cell count reference ranges are not reported, since discordance with absolute values may lead to misinterpretation of CBC data. Current Interpretive Data was last revised on 2018. Lymphocyte pct 38.3 % [facility] Comment: Interpretive Data Percent cell count reference ranges are not reported, since discordance with absolute values may lead to misinterpretation of CBC data. Current Interpretive Data was last revised on 2018. Monocyte pct 11.3 % [facility] Comment: Interpretive Data Percent cell count reference ranges are not reported, since discordance with absolute values may lead to misinterpretation of CBC data. Current Interpretive Data was last revised on 2018. Eosinophil pct 2.6 % [facility] Comment: Interpretive Data Percent cell count reference ranges are not reported, since discordance with absolute values may lead to misinterpretation of CBC data. Current Interpretive Data was last revised on 2018. RBC morphology Present(A) [facility] Anisocytosis Marked(A) [facility] Macrocytes > 15/HPF(A) [facility] Platelet estimate Adequate [facility] Blood 11/29/2024 12:2 9 AM HEARSE DRIVER 11/29/2024 1:32 AM HEARSE DRIVER us Juan A Chanel DO LAB BLOOD ORDERABLES Edited Resu lt - Final [facility] Department [place] [address] * (ABNORMAL) CBC without differential (11/29/2024 12:29 AM HEARSE DRIVER) WBC 8.3 3.8 - 9.9 K/cumm Hgb 9.5(L) 13.0 - 17.5 g/dL [facility] Hct 29.5(L) 38.9 - 50.3 % [facility] Plt 376 150 - 400 K/cumm [facility] MPV 10.4 9.1 - 12.3 fL [facility] RBC 2.78(L) 4.30 - 5.80 M/cumm [facility] MCV 106.1(H) 81.3 - 96.4 fL [facility] MCH 34.2(H) 27.1 - 33.3 pg [facility] MCHC 32.2(L) 32.3 - 35.7 g/dL [facility] RDW CV 14.2 11.1 - 14.9 % [facility] RDW SD 55.5(H) 35.7 - 48.1 fL [facility] NRBC abs 0.04(H) 0.00 - 0.01 K/cumm [facility] Blood 11/29/2024 12:2 9 AM HEARSE DRIVER 11/29/2024 1:32 AM HEARSE DRIVER us Juan A Chanel DO LAB BLOOD ORDERABLES Final Resul t Performing Organization Address [facility] de Phone Number [facility] Department [place] [address] * (ABNORMAL) Phosphorus (11/29/2024 12:29 AM HEARSE DRIVER) Phosphorus, pl 2.2(L) 2.3 - 4.5 mg/dL Blood 11/29/2024 12:2 9 AM HEARSE DRIVER 11/29/2024 1:35 AM HEARSE DRIVER Juan A Chanel DO LAB BLOOD ORDERABLES Final Resul t Performing Organization Address [facility] de Phone Number [facility] Department [place] [address] * Magnesium (11/29/2024 12:29 AM HEARSE DRIVER) Magnesium 1.7 1.4 - 2.5 mg/dL Blood 11/29/2024 12:2 9 AM HEARSE DRIVER 11/29/2024 1:35 AM HEARSE DRIVER Juan A Chanel DO LAB BLOOD ORDERABLES Final Resul t Performing Organization Address City/[facility] de Phone Number [facility] Department [place] [address] * (ABNORMAL) Basic metabolic panel (11/29/2024 12:29 AM HEARSE DRIVER) Pathologist [facility] Sodium 138 135 - 145 mmol/L Potassium, pl 3.7 3.3 - 4.9 mmol/L [facility] Chloride 99 97 - 110 mmol/L [facility] CO2 34(H) 22 - 32 mmol/L [facility] Anion gap 5 2 - 15 mmol/L [facility] BUN 17 6 - 25 mg/dL [facility] Creatinine 0.88 0.80 - 1.30 mg/dL [facility] Glucose 119 70 - 199 mg/dL [facility] Comment: Interpretive Data Fasting glucose >/= 126 mg/dl is diagnostic for diabetes. Fasting is defined as no caloric intake [...] 2022. Calcium 8.7 8.5 - 10.3 mg/dL [facility] Blood 11/29/2024 12:2 9 AM HEARSE DRIVER 11/29/2024 1:35 AM HEARSE DRIVER Narrative [facility] - 11/29/2024 1:38 AM HEARSE DRIVER Daily except Saturday and . Morning draw. Juan A Chanel DO LAB BLOOD ORDERABLES Final Resul t ZULEMA Su[facility] Department [place] [address] * (ABNORMAL) POCT glucose (11/28/2024 9:30 PM HEARSE DRIVER) Pathologist [facility] Glucose, POC 204(H) 70 - 199 mg/dL Blood 11/28/2024 9:30 PM HEARSE DRIVER 11/28/2024 9:30 PM HEARSE DRIVER Josué Del Valle MD PhD LAB POCT ORDERABLES - DE VICE Final Result Performing Organization Address [facility] Co de Phone Number [facility] [place] [address] * POCT glucose (11/28/2024 5:09 PM HEARSE DRIVER) Pathologist [facility] Glucose, POC 182 70 - 199 mg/dL Blood 11/28/2024 5:09 PM HEARSE DRIVER 11/28/2024 5:09 PM HEARSE DRIVER Josué Del Valle MD PhD LAB POCT ORDERABLES - DE VICE Final Result Performing Organization Address [facility] Phone Number [facility] [place] [address] * ECG 12 lead (11/28/2024 1:47 PM HEARSE DRIVER) [facility] Ventricular Rate EKG/Min 63 BPM [facility] Atrial Rate 63 BPM [facility] WA-Interval (MSEC) 138 ms [facility] QRS-Interval (MSEC) 92 ms [facility] QT-Interval (MSEC) 430 ms [facility] QTc 440 ms [facility] P Bag[place] 79 degrees [facility] R [place] 88 degrees [facility] T [place] 41 degrees [facility] Diagnosis Normal sinus rhythm Poor r [...] WINTERS M.D ([id number]) on 11/30/2024 10:34:40 AM [facility] 11/28/2024 1:47 PM HEARSE DRIVER 11/30/2024 10:34 AM HEARSE DRIVER Juan A Chanel DO ECG ORDERABLES Final Result [facility] * eGFR (11/28/2024 1:40 PM HEARSE DRIVER) [facility] eGFR >90 >=60 mL/min/1. 73 m2 Comment: Interpretive Data Reference Interval Normal >/= 90 mL/min/1.73m2 Mildly decreased* 60 - 89 mL/min/1.73m2 Mildly to moderately decreased 45 - 59 mL/min/1.73m2 Moderately to severely decreased 30 - 44 mL/min/1.73m2 Severely decreased 15 - 29 mL/min/1.73m2 Kidney Failure < 15 mL/min/1.73m2 *Relative to young adult level Estimated glomerular [...] last reviewed 2021. Blood 11/28/2024 1:40 PM HEARSE DRIVER 11/28/2024 1:46 PM HEARSE DRIVER Juan A Chanel DO LAB BLOOD ORDERABLES Final Resul t [facility] Department [place] [address] * (ABNORMAL) Manual Differential (11/28/2024 1:40 PM HEARSE DRIVER) [facility] Differential Manual Cells Counted 114 [facility] Neutrophil abs 4.5 1.5 - 6.5 K/cumm [facility] Imm gran abs 0.1 0.0 - 0.1 K/cumm [facility] Lymphocyte abs 2.0 0.8 - 3.3 K/cumm [facility] Monocyte abs 0.6 0.2 - 0.8 K/cumm [facility] Eosinophil abs 0.4 0.0 - 0.5 K/cumm [facility] Neutrophil pct 58.7 % [facility] Comment: Interpretive Data Percent cell count reference ranges are not reported, since discordance with absolute values may lead to misinterpretation of CBC data. Current Interpretive Data was last revised on 2018. Lymphocyte pct 26.3 % [facility] Comment: Interpretive Data Percent cell count reference ranges are not reported, since discordance with absolute values may lead to misinterpretation of CBC data. Current Interpretive Data was last revised on 2018. Monocyte pct 7.9 % [facility] Comment: Interpretive Data Percent cell count reference ranges are not reported, since discordance with absolute values may lead to misinterpretation of CBC data. Current Interpretive Data was last revised on 2018. Eosinophil pct 5.3 % [facility] Comment: Interpretive Data Percent cell count reference ranges are not reported, since discordance with absolute values may lead to misinterpretation of CBC data. Current Interpretive Data was last revised on 2018. Myelocyte pct 1.8 % [facility] RBC morphology Present(A) [facility] Anisocytosis Slight(A) [facility] Poikilocytosis Slight(A) [facility] Macrocytes > 15/HPF(A) [facility] Platelet estimate Adequate [facility] Blood 11/28/2024 1:40 PM HEARSE DRIVER 11/28/2024 1:46 PM HEARSE DRIVER us Juan A Chanel DO LAB BLOOD ORDERABLES Edited Resu lt - Final [facility] Department [place] [address] * (ABNORMAL) CBC without differential (11/28/2024 1:40 PM HEARSE DRIVER) WBC 7.7 3.8 - 9.9 K/cumm Hgb 11.3(L) 13.0 - 17.5 g/dL [facility] Hct 34.6(L) 38.9 - 50.3 % [facility] Plt 409(H) 150 - 400 K/cumm [facility] MPV 9.7 9.1 - 12.3 fL [facility] RBC 3.25(L) 4.30 - 5.80 M/cumm [facility] MCV 106.5(H) 81.3 - 96.4 fL [facility] MCH 34.8(H) 27.1 - 33.3 pg [facility] MCHC 32.7 32.3 - 35.7 g/dL [facility] RDW CV 14.5 11.1 - 14.9 % [facility] RDW SD 56.7(H) 35.7 - 48.1 fL [facility] NRBC abs 0.04(H) 0.00 - 0.01 K/cumm [facility] Blood 11/28/2024 1:40 PM HEARSE DRIVER 11/28/2024 1:46 PM HEARSE DRIVER [employer] LAB BLOOD ORDERABLES Final Resul t Performing Organization Address City/[facility]/ZIP Co de Phone Number [facility] Department [place] [employer] [place] [address] * Type and screen (11/28/2024 1:40 PM HEARSE DRIVER) ABO Rh A Positive Ursula, indirect Negative [facility] Blood 11/28/2024 1:40 PM HEARSE DRIVER 11/28/2024 1:49 PM HEARSE DRIVER Narrative [facility] - 11/28/2024 2:38 PM HEARSE DRIVER Has the patient had Daratumumab or Isatuximab in the past 6 months?->Unknown [employer] BLOOD BANK TEST ORDERABLES F inal Result [facility] [employer] [place] [address] * (ABNORMAL) Uric acid (11/28/2024 1:40 PM HEARSE DRIVER) Uric acid 2.9(L) 3.0 - 8.0 mg/dL Blood 11/28/2024 1:40 PM HEARSE DRIVER 11/28/2024 1:46 PM HEARSE DRIVER us Juan A Chanel DO LAB BLOOD ORDERABLES Final Resul t Performing Organization Address City/[facility] Co de Phone Number [facility] [place] [address] * Phosphorus (11/28/2024 1:40 PM HEARSE DRIVER) Phosphorus, pl 2.4 2.3 - 4.5 mg/dL Blood 11/28/2024 1:40 PM HEARSE DRIVER 11/28/2024 1:46 PM HEARSE DRIVER Juan A Chanel DO LAB BLOOD ORDERABLES Final Resul t Performing Organization Address [facility] de Phone Number [place] [place] [address] * Magnesium (11/28/2024 1:40 PM HEARSE DRIVER) Magnesium 1.7 1.4 - 2.5 mg/dL Blood 11/28/2024 1:40 PM HEARSE DRIVER 11/28/2024 1:46 PM HEARSE DRIVER Juan A Chnael DO LAB BLOOD ORDERABLES Final Resul t Performing Organization Address [facility] Co de Phone Number [facility] [place] [address] * Lactate dehydrogenase (LD) (11/28/2024 1:40 PM HEARSE DRIVER) Lactate dehydrogenase (LDH) 226 100 - 250 Units/L Blood 11/28/2024 1:40 PM HEARSE DRIVER 11/28/2024 1:46 PM HEARSE DRIVER Juan A Chanel DO LAB BLOOD ORDERABLES Final Resul t Performing Organization Address [facility] Co de Phone Number [facility] Department [place] [address] * (ABNORMAL) Comprehensive metabolic panel (11/28/2024 1:40 PM HEARSE DRIVER) Sodium 139 135 - 145 mmol/L Potassium, pl 3.8 3.3 - 4.9 mmol/L [facility] Chloride 98 97 - 110 mmol/L [facility] CO2 37(H) 22 - 32 mmol/L [facility] Anion gap 4 2 - 15 mmol/L [facility] BUN 17 6 - 25 mg/dL [facility] Creatinine 0.85 0.80 - 1.30 mg/dL [facility] Glucose 74 70 - 199 mg/dL [facility] Comment: Interpretive Data Fasting glucose >/= 126 mg/dl is diagnostic for diabetes. Fasting is defined as no caloric intake [...] 2022. Calcium 9.1 8.5 - 10.3 mg/dL [facility] Bilirubin, total 0.2 0.1 - 1.2 mg/dL [facility] Protein, pl 6.7 6.5 - 8.5 g/dL [facility] Albumin 3.6 3.5 - 5.0 g/dL [facility] Alk phos 120 40 - 130 Units/L [facility] ALT 36 7 - 55 Units/L [facility] AST 32 10 - 50 Units/L [facility] Blood 11/28/2024 1:40 PM HEARSE DRIVER 11/28/2024 1:46 PM HEARSE DRIVER us Juan A Chanel DO LAB BLOOD ORDERABLES Final Resul t [facility] Department [place] [address] * aPTT (11/28/2024 1:32 PM HEARSE DRIVER) aPTT 34 28 - 38 sec Comment: Interpretive Data Heparin therapeutic range: 66.0 - 100.0 seconds. Range based on correlation with therapeutic heparin activity range of 0.3 - 0.7 Units/mL. Current interpretive data was last revised on 2023. Blood 11/28/2024 1:32 PM HEARSE DRIVER 11/28/2024 1:39 PM HEARSE DRIVER [facility] Chanel LAB BLOOD ORDERABLES Final Resul t Performing Organization Address [facility] de Phone Number [facility] [place] [address] * Protime-INR (11/28/2024 1:32 PM HEARSE DRIVER) PT 12.6 9.7 - 13.0 sec INR 1.16 0.90 - 1.20 [facility] Comment: Interpretive data Oral anticoagulant therapeutic ranges: Venous thromboembolism prophylaxis or treatment: 2.0-3.0 CARDIOLOGY Standard range: 2.0-3.0 High-intensity range: 2.5-3.5 Refer to indication-specific guidelines for appropriate target ranges for prosthetic heart valve replacement. Current interpretive data was last revised on 2019. Blood 11/28/2024 1:32 PM HEARSE DRIVER 11/28/2024 1:39 PM HEARSE DRIVER [facility] LAB BLOOD ORDERABLES Final Resul t Performing Organization Address [facility] Co de Phone Number [facility] [place] [address] * (ABNORMAL) Fibrinogen (11/28/2024 1:32 PM HEARSE DRIVER) Fibrinogen 561(H) 170 - 400 mg/dL Blood 11/28/2024 1:32 PM HEARSE DRIVER 11/28/2024 1:39 PM HEARSE DRIVER Juan A Chanel DO LAB BLOOD ORDERABLES Final Resul t Performing Organization Address [facility] de Phone Number [facility] [employer] [place] [address] * (ABNORMAL) POCT glucose (11/18/2024 11:20 AM HEARSE DRIVER) Glucose, POC 201(H) 70 - 199 mg/dL Comment:Glu2: RN/MD Notified Glucose comment 1 Glu2: RN/MD Notified [facility] Blood 11/18/2024 11:2 0 AM HEARSE DRIVER 11/18/2024 11:20 AM HEARSE DRIVER Cruz Redding MD PhD LAB POCT ORDERABLES - DEVICE Final Result Performing Organization Address [facility] de Phone Number [facility] [place] [address] * POCT glucose (11/18/2024 7:30 AM HEARSE DRIVER) Glucose, POC 148 70 - 199 mg/dL Blood 11/18/2024 7:30 AM HEARSE DRIVER 11/18/2024 7:30 AM HEARSE DRIVER Cruz Redding MD PhD LAB POCT ORDERABLES - DEVICE Final Result Performing Organization Address [facility] de Phone Number [facility] Department [place] [address] * POCT glucose (11/18/2024 4:25 AM HEARSE DRIVER) Glucose, POC 146 70 - 199 mg/dL Blood 11/18/2024 4:25 AM HEARSE DRIVER 11/18/2024 4:25 AM HEARSE DRIVER Cruz Redding MD PhD LAB POCT ORDERABLES - DEVICE Final Result Performing Organization Address [facility] de Phone Number [facility] [place] [address] * eGFR (11/18/2024 2:38 AM HEARSE DRIVER) [facility] eGFR >90 >=60 mL/min/1. 73 m2 Comment: Interpretive Data Reference Interval Normal >/= 90 mL/min/1.73m2 Mildly decreased* 60 - 89 mL/min/1.73m2 Mildly to moderately decreased 45 - 59 mL/min/1.73m2 Moderately to severely decreased 30 - 44 mL/min/1.73m2 Severely decreased 15 - 29 mL/min/1.73m2 Kidney Failure < 15 mL/min/1.73m2 *Relative to young adult level Estimated glomerular [...] last reviewed 2021. Blood 11/18/2024 2:38 AM HEARSE DRIVER 11/18/2024 3:24 AM HEARSE DRIVER Josué Del Valle MD PhD LAB BLOOD ORDERABLES Fin al Result [facility] Department [place] [address] * (ABNORMAL) Manual Differential (11/18/2024 2:38 AM HEARSE DRIVER) [facility] Differential Manual Cells Counted [address] [facility] Neutrophil abs 3.4 1.5 - 6.5 K/cumm [facility] Imm gran abs 0.0 0.0 - 0.1 K/cumm [facility] Lymphocyte abs 2.2 0.8 - 3.3 K/cumm [facility] Monocyte abs 0.3 0.2 - 0.8 K/cumm [facility] Eosinophil abs 0.5 0.0 - 0.5 K/cumm [facility] Basophil abs 0.1 0.0 - 0.1 K/cumm [facility] Neutrophil pct 52.6 % [facility] Comment: Interpretive Data Percent cell count reference ranges are not reported, since discordance with absolute values may lead to misinterpretation of CBC data. Current Interpretive Data was last revised on 2018. Lymphocyte pct 33.6 % [facility] Comment: Interpretive Data [...] revised on 2018. Eosinophil pct 7.8 % [facility] Comment: Interpretive Data Percent cell count reference ranges are not reported, since discordance with absolute values may lead to misinterpretation of CBC data. Current Interpretive Data was last revised on 2018. Basophil pct 1.7 % [facility] Comment: Interpretive Data Percent cell count reference ranges are not reported, since discordance with absolute values may lead to misinterpretation of CBC data. Current Interpretive Data was last revised on 2018. RBC morphology Present(A) [facility] Anisocytosis Slight(A) [facility] Macrocytes 3-7/HPF(A) [facility] Platelet estimate Adequate [facility] Blood 11/18/2024 2:38 AM HEARSE DRIVER 11/18/2024 3:24 AM HEARSE DRIVER us Josué Del Valle MD PhD LAB BLOOD ORDERABLES Fin al Result [facility] Department of Laboratories [place], [place] [id number] * (ABNORMAL) CBC without differential (11/18/2024 2:38 AM HEARSE DRIVER) WBC 6.4 3.8 - 9.9 K/cumm Hgb 9.9(L) 13.0 - 17.5 g/dL [facility] Hct 30.0(L) 38.9 - 50.3 % [facility] Plt 254 150 - 400 K/cumm [facility] MPV 10.5 9.1 - 12.3 fL [facility] RBC 2.83(L) 4.30 - 5.80 M/cumm [facility] MCV 106.0(H) 81.3 - 96.4 fL [facility] MCH 35.0(H) 27.1 - 33.3 pg [facility] MCHC 33.0 32.3 - 35.7 g/dL [facility] RDW CV 14.8 11.1 - 14.9 % [facility] RDW SD 58.4(H) 35.7 - 48.1 fL [facility] NRBC abs 0.00 0.00 - 0.01 K/cumm [facility] Blood 11/18/2024 2:38 AM HEARSE DRIVER 11/18/2024 3:24 AM HEARSE DRIVER Josué Del Valle MD PhD LAB BLOOD ORDERABLES Fin al Result Performing Organization Address City/[facility]/ZIP Co de Phone Number [facility] [place] [employer] [place] [address] * Phosphorus (11/18/2024 2:38 AM HEARSE DRIVER) Phosphorus, pl 3.2 2.3 - 4.5 mg/dL Blood 11/18/2024 2:38 AM HEARSE DRIVER 11/18/2024 3:24 AM HEARSE DRIVER Josué Del Valle MD PhD LAB BLOOD ORDERABLES Fin al Result [facility] [place] [place] [address] * Magnesium (11/18/2024 2:38 AM HEARSE DRIVER) Magnesium 1.9 1.4 - 2.5 mg/dL Blood 11/18/2024 2:38 AM HEARSE DRIVER 11/18/2024 3:24 AM HEARSE DRIVER Josué Del Valle MD PhD LAB BLOOD ORDERABLES Fin al Result [facility] Department [place] [address] * (ABNORMAL) Basic metabolic panel (11/18/2024 2:38 AM HEARSE DRIVER) [facility] Sodium 143 135 - 145 mmol/L Potassium, pl 4.1 3.3 - 4.9 mmol/L [facility] Chloride 104 97 - 110 mmol/L [facility] CO2 32 22 - 32 mmol/L [facility] Anion gap 7 2 - 15 mmol/L [facility] BUN 20 6 - 25 mg/dL [facility] Creatinine 0.78(L) 0.80 - 1.30 mg/dL [facility] Glucose 117 70 - 199 mg/dL [facility] Comment: Interpretive Data Fasting glucose >/= 126 mg/dl is diagnostic for diabetes. Fasting is defined as no caloric intake [...] 2022. Calcium 8.3(L) 8.5 - 10.3 mg/dL [facility] Blood 11/18/2024 2:38 AM HEARSE DRIVER 11/18/2024 3:24 AM HEARSE DRIVER Narrative [facility] - 11/18/2024 3:55 AM HEARSE DRIVER Daily except Saturday and . Morning draw. us Josué Del Valle MD PhD LAB BLOOD ORDERABLES Fin al Result Performing Organization Address City/[facility]/ZIP Co de Phone Number [facility] Department [place] [address] * POCT glucose (11/18/2024 12:47 AM HEARSE DRIVER) Glucose, POC 125 70 - 199 mg/dL Blood 11/18/2024 12:4 7 AM HEARSE DRIVER 11/18/2024 12:47 AM HEARSE DRIVER Cruz Redding MD PhD LAB POCT ORDERABLES - DEVICE Final Result Performing Organization Address City/[facility] Co de Phone Number [facility] [place] [place] [address] * POCT glucose (11/17/2024 8:11 PM HEARSE DRIVER) Glucose, POC 135 70 - 199 mg/dL Blood 11/17/2024 8:11 PM HEARSE DRIVER 11/17/2024 8:11 PM HEARSE DRIVER Cruz Redding MD PhD LAB POCT ORDERABLES - DEVICE Final Result Performing Organization Address City/[facility] Co de Phone Number [facility] [place] [place] [address] * (ABNORMAL) POCT glucose (11/17/2024 5:32 PM HEARSE DRIVER) Glucose, POC 229(H) 70 - 199 mg/dL Blood 11/17/2024 5:32 PM HEARSE DRIVER 11/17/2024 5:32 PM HEARSE DRIVER Cruz Redding MD PhD LAB POCT ORDERABLES - DEVICE Final Result Performing Organization Address City/[facility] Co de Phone Number [facility] [employer] [place] [address] * POCT glucose (11/17/2024 12:03 PM HEARSE DRIVER) Glucose, POC 156 70 - 199 mg/dL Blood 11/17/2024 12:0 3 PM HEARSE DRIVER 11/17/2024 12:03 PM HEARSE DRIVER Cruz Redding MD PhD LAB POCT ORDERABLES - DEVICE Final Result Performing Organization Address City/[facility] Co de Phone Number [facility] [employer] [place] [address] * POCT glucose (11/17/2024 11:14 AM HEARSE DRIVER) Glucose, POC 174 70 - 199 mg/dL Blood 11/17/2024 11:1 4 AM HEARSE DRIVER 11/17/2024 11:14 AM HEARSE DRIVER us Cruz Redding MD PhD LAB POCT ORDERABLES - DEVICE Final Result Performing Organization Address [facility] Co de Phone Number [facility] [employer] [place] [address] * POCT glucose (11/17/2024 7:19 AM HEARSE DRIVER) Glucose, POC 126 70 - 199 mg/dL Blood 11/17/2024 7:19 AM HEARSE DRIVER 11/17/2024 7:19 AM HEARSE DRIVER us Cruz Redding MD PhD LAB POCT ORDERABLES - DEVICE Final Result Performing Organization Address [facility] Co de Phone Number [facility] [place] [place] [address] * POCT glucose (11/17/2024 4:32 AM HEARSE DRIVER) Glucose, POC 159 70 - 199 mg/dL Blood 11/17/2024 4:32 AM HEARSE DRIVER 11/17/2024 4:32 AM HEARSE DRIVER Cruz Redding MD PhD LAB POCT ORDERABLES - DEVICE Final Result Performing Organization Address City/[facility] Co de Phone Number [facility] [employer] [place] [address] * POCT glucose (11/17/2024 12:33 AM HEARSE DRIVER) Glucose, POC 178 70 - 199 mg/dL Blood 11/17/2024 12:3 3 AM HEARSE DRIVER 11/17/2024 12:33 AM HEARSE DRIVER us Cruz Redding MD PhD LAB POCT ORDERABLES - DEVICE Final Result Performing Organization Address [facility] de Phone Number [facility] [place] [address] * eGFR (11/17/2024 12:31 AM HEARSE DRIVER) Pathologist [facility] eGFR >90 >=60 mL/min/1. 73 m2 Comment: Interpretive Data Reference Interval Normal >/= 90 mL/min/1.73m2 Mildly decreased* 60 - 89 mL/min/1.73m2 Mildly to moderately decreased 45 - 59 mL/min/1.73m2 Moderately to severely decreased 30 - 44 mL/min/1.73m2 Severely decreased 15 - 29 mL/min/1.73m2 Kidney Failure < 15 mL/min/1.73m2 *Relative to young adult level Estimated glomerular [...] reviewed 2021. Blood 11/17/2024 12:3 1 AM HEARSE DRIVER 11/17/2024 12:53 AM HEARSE DRIVER us Josué Del Valle MD PhD LAB BLOOD ORDERABLES Fin al Result Performing Organization Address [facility] Co de Phone Number [facility] Department [place] [address] * (ABNORMAL) Manual Differential (11/17/2024 12:31 AM HEARSE DRIVER) Differential Manual Cells Counted 114 [facility] Neutrophil abs 3.4 1.5 - 6.5 K/cumm [facility] Imm gran abs 0.1 0.0 - 0.1 K/cumm [facility] Lymphocyte abs 2.3 0.8 - 3.3 K/cumm [facility] Monocyte abs 0.6 0.2 - 0.8 K/cumm [facility] Eosinophil abs 0.2 0.0 - 0.5 K/cumm [facility] Neutrophil pct 50.9 % [facility] Comment: Interpretive Data Percent cell count reference ranges are not reported, since discordance with absolute values may lead to misinterpretation of CBC data. Current Interpretive Data was last revised on 2018. Lymphocyte pct 35.1 % [facility] Comment: Interpretive Data Percent cell count reference ranges are not reported, since discordance with absolute values may lead to misinterpretation of CBC data. Current Interpretive Data was last revised on 2018. Monocyte pct 9.6 % [facility] Comment: Interpretive Data Percent cell count reference ranges are not reported, since discordance with absolute values may lead to misinterpretation of CBC data. Current Interpretive Data was last revised on 2018. Eosinophil pct 3.5 % [facility] Comment: Interpretive Data Percent cell count reference ranges are not reported, since discordance with absolute values may lead to misinterpretation of CBC data. Current Interpretive Data was last revised on 2018. Promyelocyte pct 0.9 % [facility] RBC morphology Present(A) [facility] Anisocytosis Marked(A) [facility] Macrocytes > 15/HPF(A) [facility] Platelet estimate Adequate [facility] Blood 11/17/2024 12:3 1 AM HEARSE DRIVER 11/17/2024 12:49 AM HEARSE DRIVER us Josué Del Valle MD PhD LAB BLOOD ORDERABLES Arun tamiko Result - Final [facility] Department [place] [address] * (ABNORMAL) CBC without differential (11/17/2024 12:31 AM HEARSE DRIVER) Pathologist [facility] WBC 6.6 3.8 - 9.9 K/cumm Hgb 11.6(L) 13.0 - 17.5 g/dL [facility] Hct 35.3(L) 38.9 - 50.3 % [facility] Plt 307 150 - 400 K/cumm [facility] MPV 10.5 9.1 - 12.3 fL [facility] RBC 3.38(L) 4.30 - 5.80 M/cumm [facility] MCV 104.4(H) 81.3 - 96.4 fL [facility] MCH 34.3(H) 27.1 - 33.3 pg [facility] MCHC 32.9 32.3 - 35.7 g/dL [facility] RDW CV 14.7 11.1 - 14.9 % [facility] RDW SD 56.7(H) 35.7 - 48.1 fL [facility] NRBC abs 0.00 0.00 - 0.01 K/cumm [facility] Blood 11/17/2024 12:3 1 AM HEARSE DRIVER 11/17/2024 12:49 AM HEARSE DRIVER us Josué Del Valle MD PhD LAB BLOOD ORDERABLES Fin al Result Performing Organization Address City/[facility]/ZIP Co de Phone Number [facility] Department [place] [address] * Uric acid (11/17/2024 12:31 AM HEARSE DRIVER) Pathologist [facility] Uric acid 6.0 3.0 - 8.0 mg/dL Blood 11/17/2024 12:3 1 AM HEARSE DRIVER 11/17/2024 12:46 AM HEARSE DRIVER us Cruz Redding MD PhD LAB BLOOD ORDERABLE S Final Result [facility] Department [place] [address] * Phosphorus (11/17/2024 12:31 AM HEARSE DRIVER) Pathologist [facility] Phosphorus, pl 2.7 2.3 - 4.5 mg/dL Blood 11/17/2024 12:3 1 AM HEARSE DRIVER 11/17/2024 12:46 AM HEARSE DRIVER Josué Del Valle MD PhD LAB BLOOD ORDERABLES Fin al Result Performing Organization Address City/[facility] [place] [address] * Magnesium (11/17/2024 12:31 AM HEARSE DRIVER) [facility] Magnesium 1.9 1.4 - 2.5 mg/dL Blood 11/17/2024 12:3 1 AM HEARSE DRIVER 11/17/2024 12:46 AM HEARSE DRIVER us Josué Del Valle MD PhD LAB BLOOD ORDERABLES Fin al Result Performing Organization Address [facility] [place] [address] * Lactate dehydrogenase (LD) (11/17/2024 12:31 AM HEARSE DRIVER) [facility] Lactate dehydrogenase (LDH) 220 100 - 250 Units/L Blood 11/17/2024 12:3 1 AM HEARSE DRIVER 11/17/2024 12:46 AM HEARSE DRIVER Cruz Redding MD PhD LAB BLOOD ORDERABLE S Final Result Performing Organization Address [facility] [place] [address] * (ABNORMAL) Hemoglobin A1c (11/17/2024 12:31 AM HEARSE DRIVER) Pathologist [facility] Hgb A1C 6.0(H) 4.0 - 5.6 % Estimated Average Glucose 126 mg/dL [facility] Comment: The ADA recommends reporting an estimated Average Glucose (eAG) with all Hemoglobin A1c results using the equation derived from a study of 507 normal and diabetic adults. Minority populations were underrepresented and children were not included. (Diabetes Care 2020; 43(S1): S66-S76). The eAG is not equivalent to a fasting glucose. Blood 11/17/2024 12:3 1 AM HEARSE DRIVER 11/17/2024 12:52 AM HEARSE DRIVER Narrative [facility] - 11/17/2024 5:28 PM HEARSE DRIVER Reflex us Cruz Redding MD PhD LAB BLOOD ORDERABLE S Final Result [facility] Department [place] [address] * (ABNORMAL) Basic metabolic panel (11/17/2024 12:31 AM HEARSE DRIVER) Sodium 142 135 - 145 mmol/L Potassium, pl 3.9 3.3 - 4.9 mmol/L [facility] Chloride 101 97 - 110 mmol/L [facility] CO2 33(H) 22 - 32 mmol/L [facility] Anion gap 8 2 - 15 mmol/L [facility] BUN 20 6 - 25 mg/dL [facility] Creatinine 0.66(L) 0.80 - 1.30 mg/dL [facility] Glucose 166 70 - 199 mg/dL [facility] Comment: Interpretive Data Fasting glucose >/= 126 mg/dl is diagnostic for diabetes. Fasting is defined as no caloric intake [...] 2022. Calcium 9.4 8.5 - 10.3 mg/dL [facility] Blood 11/17/2024 12:3 1 AM HEARSE DRIVER 11/17/2024 12:46 AM HEARSE DRIVER Narrative [facility] - 11/17/2024 1:32 AM HEARSE DRIVER Daily except Saturday and . Morning draw. us Josué Del Valle MD PhD LAB BLOOD ORDERABLES Fin al Result Performing Organization Address [facility] Co de Phone Number [facility] [place] [place] [address] * (ABNORMAL) POCT glucose (11/16/2024 8:43 PM HEARSE DRIVER) Glucose, POC 231(H) 70 - 199 mg/dL Blood 11/16/2024 8:43 PM HEARSE DRIVER 11/16/2024 8:43 PM HEARSE DRIVER Cruz Redding MD PhD LAB POCT ORDERABLES - DEVICE Final Result Performing Organization Address City/[facility] Co de Phone Number [facility] [place] [address] * POCT glucose (11/16/2024 5:06 PM HEARSE DRIVER) Glucose, POC 120 70 - 199 mg/dL Blood 11/16/2024 5:06 PM HEARSE DRIVER 11/16/2024 5:06 PM HEARSE DRIVER Cruz Redding MD PhD LAB POCT ORDERABLES - DEVICE Final Result Performing Organization Address [facility] Co de Phone Number [facility] [employer] [place] [address] * Surgical pathology (11/16/2024 4:53 PM HEARSE DRIVER) Tissue (Esophageal biopsy) 11/16/2024 4:53 PM HEARSE DRIVER Narrative PATHOLOGY [facility] - 11/17/2024 3:51 PM HEARSE DRIVER EPIC results best viewed via link to PDF [facility] Ramon[facility] Jaramillo Laboratory of Surgical Pathology [facility], [place] [address] Note to Patients: This report may contain [...] details. SURGICAL PATHOLOGY REPORT FINAL Patient Name: BRI JONES Gender: Aris : 1965 (Age: 59) Address: [address] [place], [place] [id number] Hospital #: [id number] Taken:11/16/2024 Received:11/16/2024 Reported: 11/17/2024 Patient Type: [facility] Inpatient Service: Gastroenterology Location: [place] [address] Physician(s): MD Kirt Romero DO Kellie Hughes, M.D. Diagnosis: A. Esophagus, distal, biopsy - Cardia-type gastric mucosa with intestinal metaplasia - Negative for dysplasia clor/11/17/2024 13:31 By this signature, I attest that the above diagnosis is based upon my personal examination of the slides(and/or other material indicated in the diagnosis). Reno Redd M.D. Report Electronically Reviewed and Signed Out By Reno Redd M.D. 11/17/2024 15:51:18 Ajay Arvizu D.O. History: The patient is a 59-year-old man presenting with food impaction of esophagus, initial encounter. Operative procedure: Upper endoscopy with removal foreign body and biopsy. Specimen(s) Received: A: Distal esophageal nodule bxs Gross Description: Received in formalin, labeled with the patient s identifiers and distal esophageal nodule and consists of a single freed-pink fragment(s) of soft tissue measuring 0.6 cm in greatest dimension. Labeled A1. Jar 0. sxst/11/16/2024 18:50 PA(s): Dora Hsu By this signature, I attest that the above diagnosis is based upon my personal examination of the slides(and/or other material). Addenda/Procedures The performance characteristics of some immunohistochemical stains, fluorescence in-situ hybridization tests and immunophenotyping by flow cytometry cited in this report (if any) were determined by the Surgical Pathology and Flow Cytometry Departments at [facility] as part of an ongoing quality project manager program and in compliance with federally mandated regulations drawn from the Clinical Laboratory Improvement Act of 1988 (CLIA '88). Some of these tests rely on the use of analyte specific reagents and are subject to specific labeling requirements by the US Food and Drug Administration. Such diagnostic tests may only be performed in a facility that is certified by the Department of Health and Human Services as a high complexity laboratory under CLIA '88. The FDA has determined that such clearance or approval is not necessary. This test is used for clinical purposes. It should not be regarded as investigational or for research. Nevertheless, federal rules concerning the medical use of analyte specific reagents require that the following disclaimer be attached to the report: This test was developed and its performance characteristics determined by the Surgical Pathology and Flow Cytometry Departments of [facility]. It has not been cleared or approved by the U. S. Food and Drug Administration. IMAGES AND SCANNED DOCUMENTS, IF INCLUDED, ONLY VIEWABLE IN PDF VERSION OF REPORT Hany Martinez MD LAB PATHOLOGY ORDERABLES Final Result PATHOLOGY [facility] 3rd Floor [place], [place] [phone] * EGD (11/16/2024 4:05 PM HEARSE DRIVER) Anatomical Region Laterality Modality Other Narrative Procedure Note Hany Martinez MD - 11/16/2024 4:05 PM [facility] Patient Name: Bri Jones Procedure Date: 11/16/2024 4:05 PM Date of : 1965 Admit Type: Outpatient Age: 59 Gender: Male Attending MD: Hany Martinez M.D. Room: [facility] ENDOSCOPY Note Status: Finalized Procedure: Upper GI [...] passed under direct vision. The [id number] endoscope was introduced through the mouth, and [...] 0 Note Initiated On: 11/16/2024 4:05 PM Hany Martinez MD ENDOSCOPY PROCEDURES Final Res ult * POCT glucose (11/16/2024 3:54 PM HEARSE DRIVER) Glucose, POC 118 70 - 199 mg/dL Blood 11/16/2024 3:54 PM HEARSE DRIVER 11/16/2024 3:54 PM HEARSE DRIVER us Cruz Redding MD PhD LAB POCT ORDERABLES - DEVICE Final Result [facility] Department [place] [address] * POCT glucose (11/16/2024 11:37 AM HEARSE DRIVER) Glucose, POC 129 70 - 199 mg/dL Blood 11/16/2024 11:3 7 AM HEARSE DRIVER 11/16/2024 11:37 AM HEARSE DRIVER us Cruz Redding MD PhD LAB POCT ORDERABLES - DEVICE Final Result [facility] SOM[facility]ERS [facility] Department [place] [address] * CT Chest Abdomen W Contrast (11/16/2024 10:32 AM HEARSE DRIVER) Anatomical Region Laterality Modality Body N/A Computed Tomogra phy 11/16/2024 11:0 1 AM HEARSE DRIVER Impressions 11/16/2024 11:01 AM HEARSE DRIVER 1. Two areas of segmental thickening of [...] Dominique Richmond M.D. 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 Patient has erosive esophagitis presenting with [...] No acute fracture or suspicious osseous lesion. 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 Patient has erosive esophagitis presenting with [...] by: Dominique Richmond M.D. Ron Weinberg MD [facility] PROCEDURES Final Resul t * POCT glucose (11/16/2024 7:57 AM HEARSE DRIVER) Glucose, POC 118 70 - 199 mg/dL Blood 11/16/2024 7:57 AM HEARSE DRIVER 11/16/2024 7:57 AM HEARSE DRIVER us Cruz Redding MD PhD LAB POCT ORDERABLES - DEVICE Final Result Performing Organization Address City/[facility]/ZIP Co de Phone Number [facility] [place] [employer] [place] [address] * POCT glucose (11/16/2024 3:55 AM HEARSE DRIVER) Glucose, POC 123 70 - 199 mg/dL Blood 11/16/2024 3:55 AM HEARSE DRIVER 11/16/2024 3:55 AM HEARSE DRIVER us Josué Del Valle MD PhD LAB POCT ORDERABLES - DE VICE Final Result Performing Organization Address [facility] Co de Phone Number [facility] [place] [place] [address] * eGFR (11/16/2024 3:38 AM HEARSE DRIVER) eGFR >90 >=60 mL/min/1. 73 m2 Comment: Interpretive Data Reference Interval Normal >/= 90 mL/min/1.73m2 Mildly decreased* 60 - 89 mL/min/1.73m2 Mildly to moderately decreased 45 - 59 mL/min/1.73m2 Moderately to severely decreased 30 - 44 mL/min/1.73m2 Severely decreased 15 - 29 mL/min/1.73m2 Kidney Failure < 15 mL/min/1.73m2 *Relative to young adult level Estimated glomerular [...] last reviewed 2021. Blood 11/16/2024 3:38 AM HEARSE DRIVER 11/16/2024 4:26 AM HEARSE DRIVER Josué Del Valle MD PhD LAB BLOOD ORDERABLES Fin al Result Performing Organization Address [facility] [place] [address] * aPTT (11/16/2024 3:38 AM HEARSE DRIVER) aPTT 36 28 - 38 sec Comment: Interpretive Data Heparin therapeutic range: 66.0 - 100.0 seconds. Range based on correlation with therapeutic heparin activity range of 0.3 - 0.7 Units/mL. Current interpretive data was last revised on 2023. Blood 11/16/2024 3:38 AM HEARSE DRIVER 11/16/2024 4:24 AM HEARSE DRIVER Josué Del Valle MD PhD LAB BLOOD ORDERABLES Fin al Result Performing Organization Address [facility] de Phone Number [facility] [place] [place] [address] * (ABNORMAL) Fibrinogen (11/16/2024 3:38 AM HEARSE DRIVER) Pathologist [facility] Fibrinogen 771(H) 170 - 400 mg/dL Blood 11/16/2024 3:38 AM HEARSE DRIVER 11/16/2024 4:24 AM HEARSE DRIVER Josué Del Valle MD PhD LAB BLOOD ORDERABLES Fin al Result Performing Organization Address [facility] [place] [address] * Type and screen (11/16/2024 3:38 AM HEARSE DRIVER) Ursula, indirect Negative ABO Rh A Positive [facility] Blood 11/16/2024 3:38 AM HEARSE DRIVER 11/16/2024 4:18 AM HEARSE DRIVER Narrative [facility] - 11/16/2024 5:10 AM HEARSE DRIVER Has the patient had Daratumumab or Isatuximab in the past 6 months?->Unknown Josué Del Valle MD PhD LAB BLOOD BANK TEST ZAC VILLEGAS Final Result Performing Organization Address [facility] Phone Number [facility] [place] [address] * Uric acid (11/16/2024 3:38 AM HEARSE DRIVER) Uric acid 5.8 3.0 - 8.0 mg/dL Blood 11/16/2024 3:38 AM HEARSE DRIVER 11/16/2024 4:26 AM HEARSE DRIVER Josué Del Valle MD PhD LAB BLOOD ORDERABLES Fin al Result Performing Organization Address [facility] Phone Number [facility] [place] [address] * Phosphorus (11/16/2024 3:38 AM HEARSE DRIVER) Phosphorus, pl 2.9 2.3 - 4.5 mg/dL Blood 11/16/2024 3:38 AM HEARSE DRIVER 11/16/2024 4:26 AM HEARSE DRIVER Josué Del Valle MD PhD LAB BLOOD ORDERABLES Fin al Result Performing Organization Address [facility] Phone Number [facility] [place] [place] [address] * Magnesium (11/16/2024 3:38 AM HEARSE DRIVER) Magnesium 1.9 1.4 - 2.5 mg/dL Blood 11/16/2024 3:38 AM HEARSE DRIVER 11/16/2024 4:26 AM HEARSE DRIVER Josué Del Valle MD PhD LAB BLOOD ORDERABLES Fin al Result Performing Organization Address [facility]/State/ZIP Co de Phone Number [facility] Department [place] [address] * Lactate dehydrogenase (LD) (11/16/2024 3:38 AM HEARSE DRIVER) [facility] Lactate dehydrogenase (LDH) 205 100 - 250 Units/L Blood 11/16/2024 3:38 AM HEARSE DRIVER 11/16/2024 4:26 AM HEARSE DRIVER Josué Del Valle MD PhD LAB BLOOD ORDERABLES Fin al Result [facility] Department [place] [address] * (ABNORMAL) Comprehensive metabolic panel (11/16/2024 3:38 AM HEARSE DRIVER) [facility] Sodium 142 135 - 145 mmol/L Potassium, pl 4.1 3.3 - 4.9 mmol/L [facility] Chloride 100 97 - 110 mmol/L [facility] CO2 32 22 - 32 mmol/L [facility] Anion gap 10 2 - 15 mmol/L [facility] BUN 20 6 - 25 mg/dL [facility] Creatinine 0.67(L) 0.80 - 1.30 mg/dL [facility] Glucose 129 70 - 199 mg/dL [facility] Comment: Interpretive Data Fasting glucose >/= 126 mg/dl is diagnostic for diabetes. Fasting is defined as no caloric intake [...] 2022. Calcium 9.9 8.5 - 10.3 mg/dL [facility] Bilirubin, total 0.4 0.1 - 1.2 mg/dL [facility] Protein, pl 7.7 6.5 - 8.5 g/dL [facility] Albumin 4.0 3.5 - 5.0 g/dL [facility] Alk phos 180(H) 40 - 130 Units/L [facility] ALT 54 7 - 55 Units/L [facility] AST 30 10 - 50 Units/L [facility] Blood 11/16/2024 3:38 AM HEARSE DRIVER 11/16/2024 4:26 AM HEARSE DRIVER Narrative [facility] - 11/16/2024 4:58 AM HEARSE DRIVER Saturday and only. Morning draw. us Josué Del Valle MD PhD LAB BLOOD ORDERABLES Fin al Result [facility] Department [place] [address] * eGFR (11/16/2024 12:13 AM HEARSE DRIVER) eGFR >90 >=60 mL/min/1. 73 m2 Comment: Interpretive Data Reference Interval Normal >/= 90 mL/min/1.73m2 Mildly decreased* 60 - 89 mL/min/1.73m2 Mildly to moderately decreased 45 - 59 mL/min/1.73m2 Moderately to severely decreased 30 - 44 mL/min/1.73m2 Severely decreased 15 - 29 mL/min/1.73m2 Kidney Failure < 15 mL/min/1.73m2 *Relative to young adult level Estimated glomerular [...] reviewed 2021. Blood 11/16/2024 12:1 3 AM HEARSE DRIVER 11/16/2024 12:32 AM HEARSE DRIVER us Mark Figueroa MD PhD LAB BLOOD ORDERABLE S Final Result [facility] [place] [address] * Differential, auto (11/16/2024 12:13 AM HEARSE DRIVER) Neutrophil abs 3.6 1.5 - 6.5 K/cumm Imm gran abs 0.0 0.0 - 0.1 K/cumm [facility] Lymphocyte abs 2.8 0.8 - 3.3 K/cumm [facility] Monocyte abs 0.7 0.2 - 0.8 K/cumm [facility] Eosinophil abs 0.2 0.0 - 0.5 K/cumm [facility] Basophil abs 0.1 0.0 - 0.1 K/cumm [facility] Neutrophil pct 49.1 % [facility] Comment: Interpretive Data Percent cell count reference ranges are not reported, since discordance with absolute values may lead to misinterpretation of CBC data. Current Interpretive Data was last revised on 2018. Imm gran pct 0.4 % [facility] Comment: Interpretive Data Percent cell count reference ranges are not reported, since discordance with absolute values may lead to misinterpretation of CBC data. Current Interpretive Data was last revised on 2018. Lymphocyte pct 37.9 % [facility] Comment: Interpretive Data Percent cell count reference ranges are not reported, since discordance with absolute values may lead to misinterpretation of CBC data. Current Interpretive Data was last revised on 2018. Monocyte pct 8.9 % [facility] Comment: Interpretive Data Percent cell count reference ranges are not reported, since discordance with absolute values may lead to misinterpretation of CBC data. Current Interpretive Data was last revised on 2018. Eosinophil pct 3.0 % [facility] Comment: Interpretive Data Percent cell count reference ranges are not reported, since discordance with absolute values may lead to misinterpretation of CBC data. Current Interpretive Data was last revised on 2018. Basophil pct 0.7 % [facility] Comment: Interpretive Data Percent cell count reference ranges are not reported, since discordance with absolute values may lead to misinterpretation of CBC data. Current Interpretive Data was last revised on 2018. Blood 11/16/2024 12:1 3 AM HEARSE DRIVER 11/16/2024 12:32 AM HEARSE DRIVER Mark Figueroa MD PhD LAB BLOOD ORDERABLE S Final Result Performing Organization Address [facility] Co de Phone Number [facility] Department [place] [address] * (ABNORMAL) CBC with auto differential (11/16/2024 12:13 AM HEARSE DRIVER) Pathologist [facility] WBC 7.3 3.8 - 9.9 K/cumm Hgb 13.1 13.0 - 17.5 g/dL [facility] Hct 39.0 38.9 - 50.3 % [facility] Plt 314 150 - 400 K/cumm [facility] MPV 10.4 9.1 - 12.3 fL [facility] RBC 3.69(L) 4.30 - 5.80 M/cumm [facility] MCV 105.7(H) 81.3 - 96.4 fL [facility] MCH 35.5(H) 27.1 - 33.3 pg [facility] MCHC 33.6 32.3 - 35.7 g/dL [facility] RDW CV 15.1(H) 11.1 - 14.9 % [facility] RDW SD 58.9(H) 35.7 - 48.1 fL [facility] NRBC abs 0.02(H) 0.00 - 0.01 K/cumm [facility] Blood 11/16/2024 12:1 3 AM HEARSE DRIVER 11/16/2024 12:32 AM HEARSE DRIVER Mark Figueroa MD PhD LAB BLOOD ORDERABLE S Final Result Performing Organization Address City/[facility]/ZIP Co de Phone Number [facility] Department [place] [address] * Protime-INR (11/16/2024 12:13 AM HEARSE DRIVER) Pathologist [facility] PT 10.6 9.7 - 13.0 sec INR 0.98 0.90 - 1.20 [facility] Comment: Interpretive data Oral anticoagulant therapeutic ranges: Venous thromboembolism prophylaxis or treatment: 2.0-3.0 CARDIOLOGY Standard range: 2.0-3.0 High-intensity range: 2.5-3.5 Refer to indication-specific guidelines for appropriate target ranges for prosthetic heart valve replacement. Current interpretive data was last revised on 2019. Blood 11/16/2024 12:1 3 AM HEARSE DRIVER 11/16/2024 12:35 AM HEARSE DRIVER us Mark Figueroa MD PhD LAB BLOOD ORDERABLE S Final Result [facility] Department [place] [address] * (ABNORMAL) Basic metabolic panel (11/16/2024 12:13 AM HEARSE DRIVER) Pathologist [facility] Sodium 140 135 - 145 mmol/L Potassium, pl 4.8 3.3 - 4.9 mmol/L [facility] Comment:Hemolyzed; Potassium value may be falsely elevated by as much as 0.3-0.5 mmol/L. Suggest redraw and reanalysis. Chloride 100 97 - 110 mmol/L [facility] CO2 28 22 - 32 mmol/L [facility] Anion gap 12 2 - 15 mmol/L [facility] BUN 19 6 - 25 mg/dL [facility] Creatinine 0.63(L) 0.80 - 1.30 mg/dL [facility] Glucose 133 70 - 199 mg/dL [facility] Comment: Interpretive Data Fasting glucose >/= 126 mg/dl is diagnostic for diabetes. Fasting is defined as no caloric intake [...] 2022. Calcium 9.9 8.5 - 10.3 mg/dL [facility] Blood 11/16/2024 12:1 3 AM HEARSE DRIVER 11/16/2024 12:32 AM HEARSE DRIVER Mark Figueroa MD PhD LAB BLOOD ORDERABLE S Final Result Performing Organization Address City/[facility]/ZIP Co de Phone Number [facility] Department [place] [address] * POCT glucose (11/16/2024 12:12 AM HEARSE DRIVER) Glucose, POC 130 70 - 199 mg/dL Blood 11/16/2024 12:1 2 AM HEARSE DRIVER 11/16/2024 12:12 AM HEARSE DRIVER Josué Del Valle MD PhD LAB POCT ORDERABLES - DE VICE Final Result Performing Organization Address [facility] de Phone Number [facility] [place] [address] * Lipid panel (07/14/2024 6:22 PM CDT) Cholesterol 89 30 - 199 mg/dL Comment: Interpretive Data Ages < or = 19 years Acceptable: <170 mg/dL Borderline high: 170-199 mg/dL High: >or= 200 mg/dL Ages > or = 20 years Desirable: <200 mg/dL Borderline high: 200-239 mg/dL High: >or= 240 mg/dL Literature References: 1. Expert Panel on Integrated Guidelines for Cardiovascular Health and Risk Reduction in Children and Adolescents. Pediatrics 2011;128:S213 2. NCEP Expert Panel. Circulation 2004;110:227 Current Interpretive Data was last revised on 2018. Triglycerides 89 <=149 mg/dL [facility] Comment: Interpretive Data Ages < or = 9 years Acceptable: <75 mg/dL Borderline high: 75-99 mg/dL High: >or= 100 mg/dL Ages 10 to 20 years Acceptable: <90 mg/dL Borderline high: 90-129 mg/dL High: >or= 130 mg/dL Ages > or = 20 years Desirable: <150 mg/dL Borderline high: 150-199 mg/dL High: 200-499 mg/dL Very high: >or= 499 mg/dL Literature References: 1. Expert Panel on Integrated Guidelines for Cardiovascular Health and Risk Reduction in Children and Adolescents. Pediatrics 2011;128:S213 2. NCEP Expert Panel. Circulation 2004;110:227 Current Interpretive Data was last revised on 2018. HDL 48 >=40 mg/dL [facility] Comment: Interpretive Data Ages < or = 19 years Acceptable: >45 mg/dL Borderline low: 40-45 mg/dL Low: <40 mg/dL Ages > or = 20 years Desirable: >or= 60 mg/dL Low: <40 mg/dL Literature References: 1. Expert Panel on Integrated Guidelines for Cardiovascular Health and Risk Reduction in Children and Adolescents. Pediatrics 2011;128:S213 2. NCEP Expert Panel. Circulation 2004;110:227 Current Interpretive Data was last revised on 2018. LDL, calculated 23 <=129 mg/dL [facility] Comment: Interpretive Data Ages < or = 19 years Acceptable: <110 mg/dL Borderline high: 110-129 mg/dL High: >or= 130 mg/dL Ages > or = 20 years Optimal: <100 mg/dL Near optimal: 100-129 mg/dL Borderline high: 130-159 mg/dL High: >160 mg/dL Calculated using the Pedro Luis LDL-C estimating equation. This equation was implemented on 2024. Prior to this date LDL-C was estimated using the Friedewald equation. Literature References: 1. Expert Panel on Integrated Guidelines for Cardiovascular Health and Risk Reduction in Children and Adolescents. Pediatrics 2011;128:S213 2. NCEP Expert Panel. Circulation 2004;110:227 3. Pedro Luis Lewis al. CÉSAR Cardiol. 2020 March 18;5(5):540-548. doi: 10.1001/jamacardio.2020.0013 Current Interpretive Data was last revised on 2024. Non-HDL Cholesterol 41 mg/dL [facility] Comment: Interpretive Data Ages < or = 19 years Acceptable: <120 mg/dL Borderline high: 120-144 mg/dL High: >145 mg/dL Ages > or = 20 years When triglycerides are >200 mg/dL, Non-HDL cholesterol is a secondary target of therapy with treatment goals that are 30 mg/dL greater than the LDL cholesterol target. Literature References: 1. Expert Panel on Integrated Guidelines for Cardiovascular Health and Risk Reduction in Children and Adolescents. Pediatrics 2011;128:S213 2. NCEP Expert Panel. Circulation 2004;110:227 Current Interpretive Data was last revised on 2018. Chol/HDL ratio 2 [facility] Blood 07/14/2024 6:22 PM CDT 07/14/2024 9:07 PM CDT us Cameron BERNAL LAB BLOOD ORDERABLES Final R esult Performing Organization Address City/[facility]/ZIP Co de Phone Number [facility] [address] [place] [address] Department [place] [address] * Albumin Creatinine Ratio, Urine (02/28/2022 8:57 AM CDT) Albumin Ur <12.0 mg/L [facility] Comment: Interpretive Data No reference range established. Current interpretive data was last revised 2019. Creatinine Ur 42.0 mg/dL [facility] Comment: Interpretive Data No reference range established. Current interpretive data was last revised 2019. Albumin Creatinine Ratio, Ur <29 1 - 29 mg/g [facility] Urine 02/28/2022 8:57 AM CDT 02/28/2022 1:[address] Montejo MD LAB URINE ORDERABLES Final Resu lt [facility] [place] [address] * PSA screen (02/04/2017 8:36 AM CDT) PSA-Total 0.7 0.1 - 4.0 ng/mL [facility] Blood specimen (specimen) 02/04/2017 8:36 AM CDT 02/04/2017 9:05 AM CDT us Josué Del Valle MD PhD LAB BLOOD ORDERABLES Fin al Result [facility] [place] [address] from Last 3 Months or Most Recently Relevant to Health Maintenance 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 (gown and gloves) - Vladimir BURRELL, RN 01/06/25 12/23/2024 12/23/2024 Insurance MEDICARE [employer] [facility] [employer] MEDICARE SOLUTIONS Advance Directives For more information, please contact: [phone] * Full Code (Latest Code Status on File) Date Activated Date Inactivated Comments 12/18/2024 7:00 PM 01/02/2025 9:40 PM * Full Code Date Activated Date Inactivated Comments 11/28/2024 1:11 PM 12/01/2024 7:34 PM * Full Code Date Activated Date Inactivated Comments 11/16/2024 3:43 PM 11/18/2024 6:47 PM * Full Code Date Activated Date Inactivated Comments 11/16/2024 2:30 AM 11/16/2024 3:43 PM * Full Code Date Activated Date Inactivated Comments 07/23/2024 11:09 PM 08/02/2024 3:41 PM Care Teams Cancer Program Director Relationship Specialty Start Date End Date Kirt Lindsay DO PCP - General Internal Medicine 02/02/21 Josué Del Valle MD PhD Medical Oncologist/Correctional Sergeant Medical Oncology 08/26/19 Cal Carranza DO [address] [address] Temperature Inspector Internal Medicine 06/12/23 Halie Khan MD [address] [facility] [address] [place] [address] Blender Conveyor Operator Critical Care Med 06/12/23 Wilfred Kinsey MD [address] [address] Consulting Physician Gastroenterology 03/02/24
--- OUTSIDE RECORDS SUMMARY | 2025-02-03 18:07 | XMS_ITS ---
Author Organization [facility] Address [address] [place] [address] Care Team Providers Care Weatherization Operations Manager Name Role Phone Josué Del Valle MD PhD Unavailable [phone] Kirt Lindsay DO Primary Care Provider [phone] Cal Carranza DO Unavailable [phone] Halie Khan MD Unavailable [phone] Wilfred Kinsey MD Unavailable Active Problems Patient Care Coordination No te Formatting of this note is d ifferent from the original. BMT Inpatient Care Coordination Overview Diagnosis AML Floor [address] Treatment Plan Clinical Trial Reason for Admission From OSH for sepsis and elevated LFTs Transplant/IEC Planning BMT/IEC Plan S/p sib allo 11/09/2009- gvhd to eyes HLA typing/IDMs Insurance Approvals/Issues Discharge Planning Anticipated Discharge Date 12/23/24 Patient Education Completed Issue to be Resolved Before Discharge Discharge Disposition Home Requests Sent to Case Management and/or Medical Assistants Post-Discharge Follow-Up Living Situation/Distance from [place], [place] (local) - 30 min Caregiver Lab/Transfusion Frequency Phone: Fax: Venous Access & Care peripheral Local Oncologist Contact Phone: Fax: Post-Discharge Office Visit (H30) JFD - 01/06 w/ [employer]AG[employer] PREPARER Jame TREJO - Sometimes no-shows for appts Miscellaneous Notes: Problem Noted Date Diagnosed Date Macrocytic anemia 01/02/2025 Assessment & Plan (01/02/2025 6:23 PM INVESTIGATION CLERK): Likely secondary to COPD. vitamin B12, folic acid wNL. Epigastric pain 01/02/2025 Assessment & Plan (01/02/2025 6:25 PM INVESTIGATION CLERK): 2/2 esophageal ulcers. PPI BID Karafate Oxycodone 10 mg q6hprn. Avoid NSAID. Chronic hypoxic respiratory failure 12/28/2024 Assessment & Plan (12/28/2024 7:07 PM INVESTIGATION CLERK): 2/2 copd. Stable oxygen requirement. Continue inhaled therapies and supplemental o2. Ulcer of esophagus without bleeding 12/25/2024 Assessment & Plan (01/01/2025 4:00 PM INVESTIGATION CLERK): EGD 01/01/25 Esophageal ulcers with no stigmata of recent bleeding. Linear ulcers had mild spontaneous oozing. Biopsied and sent for CMV, HSV and MAC. Continue BID PPI for 8 weeks, continue karafate. Needs repeat EGD in 8 weeks to confirm healing. Biopsy needs to be followed. Hb stable. Other pulmonary embolism without acute cor pulmo nale 12/19/2024 Assessment & Plan (01/01/2025 4:21 PM INVESTIGATION CLERK): History of DVT 2012, 2018, PE in 2012. He takes Xarelto at home which was held for EGD. Since remote h/o PE/DVT, will not discharge on xarelto due to multiple esophageal ulcers and risk of bleeding. Moderate protein-calorie malnutrition 11/30/2024 Assessment & Plan (01/01/2025 4:21 PM INVESTIGATION CLERK): Supplement of choice tid w meals. Assessment & Plan (11/30/2024 8:14 AM INVESTIGATION CLERK): Diagnosed by RD per ASPEN criteria. Malnutrition can delay patient's recover from his infection. 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 On triple regimen recommended by ID. 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 Assessment & Plan (11/17/2024 12:20 PM INVESTIGATION CLERK): Involving the eyes and the lungs - MMF 1 g b.i.d., tacro 0.5 every other day, and he is on prednisone only when he has wheezing or sob- 20mg a day -Tac level /TH. Coronary artery disease invo lving [place] coronary artery of [place] heart without angina pectoris 11/16/2024 Assessment & Plan (01/01/2025 4:18 PM INVESTIGATION CLERK): Continue Plavix (held for procedure) Holding statin due to elevated LFT 08/11- EF 30%, Global hypokinesis Resume toprol 12.5 mg from 01/02/25. Resume plavix from 01/02/25. Assessment & Plan (11/28/2024 1:53 PM INVESTIGATION CLERK): Hx of STEMI s/p PCI to RCA 2022 -Continue home plavix 75 mg daily, atorvastatin Assessment & Plan (11/18/2024 10:42 AM INVESTIGATION CLERK): S/p PCI to RCA in 2022 -cont [...] 4d of worsening SOB. Presented to [facility] ED 07/19 for SOB and treated for COPD exac with pred course. Presented to [facility] on 07/21 for worsening SOB. CXR and [...] infection Assessment & Plan (12/28/2024 7:14 PM INVESTIGATION CLERK): Follows up with ID for history of nontuberculous mycobacterial infection. - Transplant ID consulted - restarted azithromcyin and ethambutol on 12/21. Defer clofazimine for at least 1 week following resolution of transaminitis Assessment & Plan (11/17/2024 12:22 PM INVESTIGATION CLERK): Follows with ID; last seen in clinic [...] [facility] lab on ~07/13. Beginning empiric therapy therapy [...] 06/16/2024 Assessment & Plan (11/17/2024 12:22 PM INVESTIGATION CLERK): RD following Assessment & Plan (07/24/2024 1:02 [...] 06/15/2024 Assessment & Plan (12/19/2024 12:50 AM INVESTIGATION CLERK): On chronic oxygen therapy with 3 L nasal cannula during daytime, 5 L nasal cannula during night time Smokes cigarettes occasionally, uses nicotine patches at home Continue montelukast, Trelegy Ellipta inhaler, DuoNebs p.r.n. Assessment & Plan (11/28/2024 4:11 PM INVESTIGATION CLERK): Last PFT 08/15/23: FEV1 35% predicted. Residual [...] 02/20/2024 Assessment & Plan (12/23/2024 11:51 AM INVESTIGATION CLERK): -History of Kovacs's esophagus next and endoscopy was on 16 of November showed food in middle 3rd of esophagus, stasis esophagitis in the mid esophagus. Path showed Cardia-type gastric mucosa with intestinal metaplasia. -Gi consulted, recommended outpatient follow up for EGD. Kovacs's esophagus without dysplasia 02/20/2024 Assessment & Plan (01/01/2025 4:01 PM INVESTIGATION CLERK): EGD 11/16 showed food in middle 3rd of esophagus, stasis esophagitis in the mid esophagus. 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 -Continue carafate 1g bid, PPI bid. - benign esophageal stenosis seen in EGD onn 01/01/25. Dilated to 18 mm. -Repeat EGD 2 months from 01/01. Assessment & Plan (11/28/2024 4:10 PM INVESTIGATION CLERK): Admitted recently due to food stuck at chest. EGD 11/16 showed food in middle 3rd of esophagus, stasis esophagitis in the mid esophagus. 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 -Continue carafate 1g bid, PPI bid. -Repeat EGD 3 months from 11/17 Assessment & Plan (11/18/2024 10:43 AM INVESTIGATION CLERK): After eating chicken/spaghetti on 11/14 felt pressure/stuck [...] 02/13/2022 Assessment & Plan (12/01/2024 12:17 PM INVESTIGATION CLERK): Patient reports symptom of chest tightness. CT at OSH showed new infiltrate at left upper lobe. Has know cavitary lung lesion from July. Previously on amikacin but was held due to elevated creatinine. Suspect that CAP is the main stunt driver of patient's symptoms. May have some [...] disease) Assessment & Plan (11/17/2024 12:17 PM INVESTIGATION CLERK): He has Ventolin inhaler, Trelegy inhaler, albuterol inhaler, and Singulair 10 a day. On 3L oxygen at home Biliary sludge 12/20/2021 Overview (12/20/2021): Added automatically from request for surgery [id number] Other osteoporosis without current pathological fracture 11/23/2021 Encounter for removal of biliary stent Overview (10/03/2021): Added automatically from request for surgery [id number] History of DVT (deep vein thrombosis) 09/08/2021 [...] (09/07/2021): Added automatically from request for surgery [id number] Assessment & Plan (07/25/2024 12:01 PM CDT): - Recent hx pancreatitis admission without obvious source. Pain was slowly recurring in the last few days. Lipase was WNL at LFTs wnl at OSH and wnl on repeat here. Improving. - Pain control. - Tolerating mechanical soft diet Upper GI bleed 09/07/2021 Overview (09/07/2021): Added automatically from request for surgery [id number] Assessment & Plan (09/10/2021 9:18 AM CDT): [...] (03/30/2021): Added automatically from request for surgery [id number] Assessment & Plan (08/09/2021 10:27 AM CDT): [...] (06/16-06/20) Assessment & Plan (11/26/2019 10:45 AM INVESTIGATION CLERK): POA. Possibly community-acquired and/or 2/[address] Strep pneumoniae pos sputum cx. See SOB problem. Shortness of breath 11/20/2019 Assessment & Plan (11/27/2019 12:14 PM INVESTIGATION CLERK): Concern for poss GVHD and/or poss COPD [...] 11/20/2019 Assessment & Plan (11/28/2024 3:54 PM INVESTIGATION CLERK): Echo 11/24 at OSH: LVEF 40-45% wit hinferior akinesis, similar to EF in 2022, mild MR -Continue home metoprolol 12.5 mg daily, jardiance 10 mg daily Assessment & Plan (11/16/2024 3:06 AM INVESTIGATION CLERK): Euvolemic on exam currently; no new SOB - continue metop, jardiance Assessment & Plan (07/26/2024 11:49 AM CDT): TTE 03/2024 with LVEF 50-55%. Pro BNP at OSH >30k. Last adm here 1012. Appears euvolemic. S/p Lasix at OSH and [place] [address] - repeat TTE 07/24: LVEF 30%, moderate [...] 1012 Assessment & Plan (11/28/2019 10:27 AM INVESTIGATION CLERK): Closely monitor blood sugar to avoid hypoglycemia Assessment & Plan (11/27/2019 1:35 PM INVESTIGATION CLERK): Closely monitor blood sugar to avoid hypoglycemia Assessment & Plan (11/26/2019 5:32 PM INVESTIGATION CLERK): Closely monitor blood sugar to avoid hypoglycemia Assessment & Plan (11/25/2019 4:51 PM INVESTIGATION CLERK): Closely monitor blood sugar to avoid hypoglycemia Assessment & Plan (11/24/2019 4:57 PM INVESTIGATION CLERK): Closely monitor blood sugar to avoid hypoglycemia Assessment & Plan (11/23/2019 2:01 PM INVESTIGATION CLERK): Closely monitor blood sugar to avoid hypoglycemia Assessment & Plan (11/24/2019 10:51 AM INVESTIGATION CLERK): With diastolic dysfunction, new diagnosis. -Continue Lasix. [...] TID Assessment & Plan (11/20/2019 4:17 PM INVESTIGATION CLERK): Continue gabapentin Tobacco abuse 11/20/2019 Assessment & Plan (06/16/2024 6:44 PM CDT): Encourage cessation Assessment & Plan (11/20/2019 4:18 PM INVESTIGATION CLERK): Nicotine patch Depressed mood 11/24/2018 Assessment & Plan (11/24/2018 4:56 PM INVESTIGATION CLERK): With feelings of depressed mood prior to admission. Outpt team with concerns for pt's wellbeing as he was more noncompliant and down over the phone prior to admit. -Consulted [facility] counseling 11/24, will plan to see him on AM of 11/25 at 0900. -Also consulted psychiatry, but felt that counseling service was appropriate first step and would only see him if they recommended pharm therapy. DVT (deep venous thrombosis) 11/23/2018 Assessment & Plan (11/28/2024 1:53 PM INVESTIGATION CLERK): Hx of PE in 2012, DVT IJ 2017 -Continue home xarelto 20 mg dialy Assessment & Plan (11/18/2024 10:42 AM INVESTIGATION CLERK): DVT lower ext 2012, DVT IJ 2017, [...] Xeralto Assessment & Plan (11/20/2019 3:57 PM INVESTIGATION CLERK): Continue xarelto Assessment & Plan (11/23/2018 11:32 AM INVESTIGATION CLERK): Cont Xarelto. Sinusitis 11/22/2018 Assessment & Plan (11/24/2018 4:48 PM INVESTIGATION CLERK): Chronic issue over last 2 months. -With [...] disimpaction in clinic. -To note, Sinus CT 1/5 shows maxillary, sphenoid sinusitis. Head CT 11/22 shows no PE-->no pneumonia. COPD with exacerbation ([facility]) 11/22/2018 Assessment & Plan (07/24/2024 [...] exertion Assessment & Plan (11/20/2019 4:16 PM INVESTIGATION CLERK): Continue inhalers Assessment & Plan (11/23/2018 11:29 AM INVESTIGATION CLERK): Continues to smoke >1 ppd. -Cont steroids at current dose. -Cont Advair diskus BID, cont albuterol inh QID. -Encourage smoking cessation. Cont nicotine patch. Cough 10/17/2018 Pure hypercholesterolemia 08/04/2018 Assessment & Plan (02/12/2022 6:02 AM CDT): - continue home dose atorvastatin 40 mg PO daily Assessment & Plan (01/15/2020 3:22 PM INVESTIGATION CLERK): -LDL at goal -will continue atorvastatin 40 mg daily Assessment & Plan (11/28/2019 10:27 AM INVESTIGATION CLERK): On atorvastatin 40 mg daily Assessment & Plan (11/27/2019 1:35 PM INVESTIGATION CLERK): On atorvastatin 40 mg daily Assessment & Plan (11/26/2019 5:32 PM INVESTIGATION CLERK): On atorvastatin 40 mg daily Assessment & Plan (11/25/2019 4:50 PM INVESTIGATION CLERK): On atorvastatin 40 mg daily Assessment & Plan (11/24/2019 4:57 PM INVESTIGATION CLERK): On atorvastatin 40 mg daily Assessment & Plan (11/23/2019 2:02 PM INVESTIGATION CLERK): On atorvastatin 40 mg daily Assessment & Plan (11/20/2019 4:18 PM INVESTIGATION CLERK): Continue statin Assessment & Plan (08/07/2019 1:35 [...] level Assessment & Plan (01/15/2020 3:22 PM INVESTIGATION CLERK): -vitamin D levels still low, unclear compliance -will continue current regimen Assessment & Plan (11/28/2019 10:29 AM INVESTIGATION CLERK): Last vitamin-D level low at 16. Continue vitamin D2 07504 units weekly and vitamin D3 2000 units daily Assessment & Plan (11/27/2019 1:35 PM INVESTIGATION CLERK): Last vitamin-D level low at 16. Continue vitamin D2 17237 units weekly and vitamin D3 2000 units daily Assessment & Plan (11/26/2019 5:32 PM INVESTIGATION CLERK): Last vitamin-D level low at 16. Continue vitamin D2 31132 units weekly and vitamin D3 2000 units daily Assessment & Plan (11/25/2019 4:51 PM INVESTIGATION CLERK): Last vitamin-D level low at 16. Continue vitamin D2 17073 units weekly and vitamin D3 2000 units daily Assessment & Plan (11/24/2019 4:57 PM INVESTIGATION CLERK): Last vitamin-D level low at 16. Continue vitamin D2 04837 units weekly and vitamin D3 2000 units daily Assessment & Plan (11/23/2019 2:02 PM INVESTIGATION CLERK): Last vitamin-D level low at 16. Continue vitamin D2 68197 units weekly and vitamin D3 2000 units [...] 05/06/2018 Assessment & Plan (12/30/2024 4:24 PM INVESTIGATION CLERK): S/p 7+3 HIDAC consolidation * 3, decitabine maintenance on CALG 16355. Had relapse s/p AMD/MEC. 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 OI ppx: acv, Hold cresemba 2/2 transaminitis. Assessment & Plan (11/28/2024 1:55 PM INVESTIGATION CLERK): S/p 7+3 HIDAC consolidation * 3, decitabine maintenance on CALG 91366. Had relapse s/p AMD/MEC. 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 -OI ppx: acv, crsemba Assessment & Plan (11/18/2024 10:41 AM INVESTIGATION CLERK): AML. S/p 7+3 and hidac consolidation x3, decitabine maintenance on CALG 64805 protocol. Had relapse s/p AMD/MEC. 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 -Last seen by Dr. Del Valle 06/12/23, in remission - acyclovir 400 t.i.d and antifungal ppx with voriconazole vs cresemba. Plan med rec w [facility] D[facility] today Assessment & Plan (06/17/2024 3:28 PM CDT): Follows Dr. Bauman, last seen in clinic on 06/09/2023 -AML diagnosed in 2008 s/p 7+3 and HiDAC consolidation x3 followed by Decitabine maintenance on the CALGB 70802 protocol. -Followed by Relapsed disease, status post [...] followed by Decitabine maintenance on the CALGB 30429 protocol. Followed by Relapsed disease, status post alloSCT sister 10/10 match D): 11/09/2009. 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 voriconazole 200 b.i.d Assessment & Plan (09/10/2021 9:20 AM CDT): -S/p Busulfan and Cytoxan on the [facility] allogeneic study with his sister, 10 match; with day 0 on 11/09/2009 after induction with 7+3 and HiDAC consolidation x3. Followed by Decitabine maintenance on the CALGB 30935 protocol and relapsed disease, status post AMD/MEC. - 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Most recent BMBx in our records is from 12/12/2017 with neg path and flow -OI prophylaxis, acyclovir Assessment & Plan (08/17/2021 3:45 PM CDT): S/p Busulfan and Cytoxan on the [facility] allogeneic study with his sister, 10 match; with day 0 on 11/09/2009 after induction with 7+3 and HiDAC consolidation x3. Followed by Decitabine maintenance on the CALGB 40573 protocol and relapsed disease, status post AMD/MEC. 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 - Relapsed disease, status post an [...] home). Assessment & Plan (11/23/2018 11:24 AM INVESTIGATION CLERK): -s/p sibling allo SCT on 11/09/09, now in CR with no e/o recurrence. 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 -Cont OI ppx with Bactrim, acyclovir. Controlled type 2 diabetes m darling without complication, with long-term current use of insulin 05/06/2018 Assessment & Plan (12/19/2024 12:54 AM INVESTIGATION CLERK): Continue home empagliflozin in the setting of HfrEF Sliding scale insulin Assessment & Plan (11/28/2024 1:56 PM INVESTIGATION CLERK): Last A1c 6.0 on 11/17/24 -SSI Assessment & Plan (11/18/2024 10:43 AM INVESTIGATION CLERK): On lantus/humalog at home (he reports taking [...] steroids Assessment & Plan (01/15/2020 3:24 PM INVESTIGATION CLERK): -poorly controlled, exacerbated by prednisone use -Hgb [...] goal Assessment & Plan (11/28/2019 10:29 AM INVESTIGATION CLERK): Patient has uncontrolled type 2 diabetes with [...] education. Assessment & Plan (11/27/2019 1:35 PM INVESTIGATION CLERK): Patient has uncontrolled type 2 diabetes with [...] education. Assessment & Plan (11/26/2019 5:32 PM INVESTIGATION CLERK): Patient has uncontrolled type 2 diabetes with [...] here. Assessment & Plan (11/25/2019 4:50 PM INVESTIGATION CLERK): Patient has uncontrolled type 2 diabetes with [...] here. Assessment & Plan (11/24/2019 4:57 PM INVESTIGATION CLERK): Patient has uncontrolled type 2 diabetes with [...] here. Assessment & Plan (11/23/2019 2:01 PM INVESTIGATION CLERK): Patient has uncontrolled type 2 diabetes with [...] here. Assessment & Plan (11/28/2019 9:33 AM INVESTIGATION CLERK): On basaglar 30 units AM and novolog [...] goal Assessment & Plan (11/24/2018 4:59 PM INVESTIGATION CLERK): -Poorly controlled, recently stopped checking glucose as [...] needles and sent e-script to [facility] in [place] on 11/24. Pt has script for glucose [...] takes acyclovir and voriconazole for medical ppx Qyxhz-xytfmj-psam disease 07/08/2012 Assessment & Plan (11/30/2024 3:25 PM INVESTIGATION CLERK): Probably missed 1-2 doses of tacrolimus and [...] daily Assessment & Plan (11/28/2019 10:27 AM INVESTIGATION CLERK): Prednisone decreased to 20 mg daily Assessment & Plan (11/27/2019 1:32 PM INVESTIGATION CLERK): Prednisone decreased to 20 mg daily Assessment & Plan (11/26/2019 5:31 PM INVESTIGATION CLERK): Plan to taper prednisone to 20 mg daily Assessment & Plan (11/25/2019 4:49 PM INVESTIGATION CLERK): He is on prednisone 20 mg BID Assessment & Plan (11/24/2019 4:54 PM INVESTIGATION CLERK): He is on prednisone 20 mg BID Assessment & Plan (11/23/2019 2:01 PM INVESTIGATION CLERK): Starting on prednisone 20 twice daily today Assessment & Plan (11/27/2019 12:13 PM INVESTIGATION CLERK): Continue cellcept 1 g BID and tacrolimus [...] 3x/weekly Assessment & Plan (11/24/2018 11:50 AM INVESTIGATION CLERK): cGVHD of eyes, mouth, 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 -Cont pred 10 mg BID, MMF 1g BID, tacrolimus 0.5 mg QOD. -F/u tac trough (due 1/8 AM). Osteopenia 11/27/2011 Assessment & Plan (01/15/2020 3:23 PM INVESTIGATION CLERK): -DEXA scan done 07/2019 revealed stable BMD -will continue vitamin D supplementation and dietary calcium Assessment & Plan (11/20/2019 3:55 PM INVESTIGATION CLERK): Continue home vitamin D and dietary calcium [...] importance of smoking cessation and exercise Current Treatment and Therapy Plans BMT Adult Blood and Platelet Administration for Inpatient* Plan Start Date: 12/25/2024 Plan Provider:Brina Gandara MD Linked Problems Acute myeloid leukemia in [facility] (HCC) Treatment Medications No medications scheduled. Past Treatment and Therapy Plans Line Care Plan Name Start Date Discontinue Date Treatment Medications Discontinue Reason Plan Provider IV MAINTENANCE THERAPY PLAN 08/22/2019 01/28/2024 No medications scheduled. Automatic discontinuation of dormant plans Josué Del Valle MD PhD Lifetime Dose Tracking * Chemical Lifetime Dose Automatic Entry Manual Entr y Radiation 190 mSv 190 mSv 0 mSv Fluoro Time 4.4 minutes 4.4 minutes 0 minutes Air kerma at the reference point (Ka,r) 145 mGy 1 45 mGy 0 mGy DLP 5,610 mGycm 5,610 mGycm 0 mGycm Resolved Problems Problem Noted Date Diagnosed Date Resolved Date Beltran catheter in place 07/24/2024 0905/2024 Assessment & Plan (07/24/2024 1:14 PM CDT): Noted beltran catheter in place. Unsure of reason of beltran placement overnight. Without urinary retention or incomplete emptying. No beltran cath placement order found. -remove beltran today with voiding trial Transient hypotension 04/02/20242024 Assessment & Plan (12/31/2024 5:44 PM INVESTIGATION CLERK): 12/20 decreased po intake. Resolved with fluids. Sepsis due to pneumonia 03/28/202412/19 Assessment & Plan (12/30/2024 5:09 PM INVESTIGATION CLERK): -sputum culture from (12/23) grew Klebsiella - [...] 01/02/2025 Assessment & Plan (01/02/2025 6:21 PM INVESTIGATION CLERK): Markedly elevated on 12/15 at OSH AST [...]
--- OUTSIDE RECORDS SUMMARY | 2025-02-03 18:08 | XMS_ITS | Clinical Summary ---
Author Organization [facility] Address [address] [place] [address] Care Team Providers Care Security Auditor Name Role Phone Josué Del Valle MD PhD Unavailable [phone] Kirt Lindsay DO Primary Care Provider [phone] Cal Carranza DO Unavailable Halie Khan MD Unavailable [phone] Wilfred Kinsey MD Unavailable Allergies Active Allergy [...] 11/13/20 21 Active flash glucose scanning reader (Meteo-LogicStyle Evaristo 2 [place]) [facility] Use to test blood glucose continuously 1 each 1 03/17/20 23 Active flash glucose sensor (FreeStyle Evaritso 2 Sensor) kitIndications:Type 2 diabetes mellitus with [...] Inpatient Care Coordination Overview Diagnosis AML Floor [address] Treatment Plan Clinical Trial Reason for Admission From OSH for sepsis and elevated LFTs Transplant/IEC Planning BMT/IEC Plan S/p sib allo 11/09/2009- gvhd to eyes HLA typing/IDMs Insurance Approvals/Issues Discharge Planning Anticipated Discharge Date 12/23/24 Patient Education Completed Issue to be Resolved Before Discharge Discharge Disposition Home Requests Sent to Case Management and/or Medical Assistants Post-Discharge Follow-Up Living Situation/Distance from [facility] SARAH Viveros (local) - 30 min Caregiver Lab/Transfusion Frequency Phone: Fax: Venous Access & Care peripheral Local Oncologist Contact Phone: Fax: Post-Discharge Office Visit (H30) CASSANDRA - 01/06 w/ PAINT LINE OPERATOR Jame TREJO - Sometimes no-shows for appts Miscellaneous Notes: Problem Noted Date Diagnosed Date Macrocytic anemia 01/02/2025 Assessment & Plan (01/02/2025 6:23 PM SPACE SCHEDULER): Likely secondary to COPD. vitamin B12, folic acid wNL. Epigastric pain 01/02/2025 Assessment & Plan (01/02/2025 6:25 PM SPACE SCHEDULER): 2/2 esophageal ulcers. PPI BID Karafate Oxycodone 10 mg q6hprn. Avoid NSAID. Chronic hypoxic respiratory failure 12/28/2024 Assessment & Plan (12/28/2024 7:07 PM SPACE SCHEDULER): 2/2 copd. Stable oxygen requirement. Continue inhaled therapies and supplemental o2. Ulcer of esophagus without bleeding 12/25/2024 Assessment & Plan (01/01/2025 4:00 PM SPACE SCHEDULER): EGD 01/01/25 Esophageal ulcers with no stigmata of recent bleeding. Linear ulcers had mild spontaneous oozing. Biopsied and sent for CMV, HSV and MAC. Continue BID PPI for 8 weeks, continue karafate. Needs repeat EGD in 8 weeks to confirm healing. Biopsy needs to be followed. Hb stable. Other pulmonary embolism without acute cor pulmo nale 12/19/2024 Assessment & Plan (01/01/2025 4:21 PM SPACE SCHEDULER): History of DVT 2012, 2017, PE in 2012. He takes Xarelto at home which was held for EGD. Since remote h/o PE/DVT, will not discharge on xarelto due to multiple esophageal ulcers and risk of bleeding. Moderate protein-calorie malnutrition 11/30/2024 Assessment & Plan (01/01/2025 4:21 PM SPACE SCHEDULER): Supplement of choice tid w meals. Assessment & Plan (11/30/2024 8:14 AM SPACE SCHEDULER): Diagnosed by RD per ASPEN criteria. Malnutrition can delay patient's recover from his infection. 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 On triple regimen recommended by ID. 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 Assessment & Plan (11/17/2024 12:20 PM SPACE SCHEDULER): Involving the eyes and the lungs - MMF 1 g b.i.d., tacro 0.5 every other day, and he is on prednisone only when he has wheezing or sob- 20mg a day -Tac level M/TH. Coronary artery disease invo lving hughes coronary artery of hughes heart without angina pectoris 11/16/2024 Assessment & Plan (01/01/2025 4:18 PM SPACE SCHEDULER): Continue Plavix (held for procedure) Holding statin due to elevated LFT 08/11- EF 30%, Global hypokinesis Resume toprol 12.5 mg from 01/02/25. Resume plavix from 01/02/25. Assessment & Plan (11/28/2024 1:53 PM SPACE SCHEDULER): Hx of STEMI s/p PCI to RCA 2022 -Continue home plavix 75 mg daily, atorvastatin Assessment & Plan (11/18/2024 10:42 AM SPACE SCHEDULER): S/p PCI to RCA in 2022 -cont [...] for 4d of worsening SOB. Presented to [facility] ED 07/19 for SOB and treated for COPD exac with pred course. Presented to [place] on 07/21 for worsening SOB. CXR and [...] infection Assessment & Plan (12/28/2024 7:14 PM SPACE SCHEDULER): Follows up with ID for history of nontuberculous mycobacterial infection. - Transplant ID consulted - restarted azithromcyin and ethambutol on 12/21. Defer clofazimine for at least 1 week following resolution of transaminitis Assessment & Plan (11/17/2024 12:22 PM SPACE SCHEDULER): Follows with ID; last seen in clinic [...] now with expectation of submitting this to [facility] on ~07/13. Beginning empiric therapy [...] 06/16/2024 Assessment & Plan (11/17/2024 12:22 PM SPACE SCHEDULER): RD following Assessment & Plan (07/24/2024 1:02 [...] 06/15/2024 Assessment & Plan (12/19/2024 12:50 AM SPACE SCHEDULER): On chronic oxygen therapy with 3 L nasal cannula during daytime, 5 L nasal cannula during night time Smokes cigarettes occasionally, uses nicotine patches at home Continue montelukast, Trelegy Ellipta inhaler, DuoNebs p.r.n. Assessment & Plan (11/28/2024 4:11 PM SPACE SCHEDULER): Last PFT 08/15/23: FEV1 35% predicted. Residual [...] 02/20/2024 Assessment & Plan (12/23/2024 11:51 AM SPACE SCHEDULER): -History of Kovacs's esophagus next and endoscopy was on 16 of November showed food in middle 3rd of esophagus, stasis esophagitis in the mid esophagus. Path showed Cardia-type gastric mucosa with intestinal metaplasia. -Gi consulted, recommended outpatient follow up for EGD. Kovacs's esophagus without dysplasia 02/20/2024 Assessment & Plan (01/01/2025 4:01 PM SPACE SCHEDULER): EGD 11/16 showed food in middle 3rd of esophagus, stasis esophagitis in the mid esophagus. 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 -Continue carafate 1g bid, PPI bid. - benign esophageal stenosis seen in EGD onn 01/01/25. Dilated to 18 mm. -Repeat EGD 2 months from 01/01. Assessment & Plan (11/28/2024 4:10 PM SPACE SCHEDULER): Admitted recently due to food stuck at chest. EGD 11/16 showed food in middle 3rd of esophagus, stasis esophagitis in the mid esophagus. 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 -Continue carafate 1g bid, PPI bid. -Repeat EGD 3 months from 11/17 Assessment & Plan (11/18/2024 10:43 AM SPACE SCHEDULER): After eating chicken/spaghetti on 11/14 felt pressure/stuck [...] 02/13/2022 Assessment & Plan (12/01/2024 12:17 PM SPACE SCHEDULER): Patient reports symptom of chest tightness. CT [...] disease) Assessment & Plan (11/17/2024 12:17 PM SPACE SCHEDULER): He has Ventolin inhaler, Trelegy inhaler, albuterol inhaler, and Singulair 10 a day. On 3L oxygen at home Biliary sludge 12/20/2021 Overview (12/20/2021): Added automatically from request for surgery [id number] Other osteoporosis without current pathological fracture 11/23/2021 Encounter for removal of biliary stent Overview (10/03/2021): Added automatically from request for surgery [id number] History of DVT (deep vein thrombosis) 09/08/2021 [...] (09/07/2021): Added automatically from request for surgery [id number] Assessment & Plan (07/25/2024 12:01 PM CDT): - Recent hx pancreatitis admission without obvious source. Pain was slowly recurring in the last few days. Lipase was WNL at LFTs wnl at OSH and wnl on repeat here. Improving. - Pain control. - Tolerating mechanical soft diet Upper GI bleed 09/07/2021 Overview (09/07/2021): Added automatically from request for surgery [id number] Assessment & Plan (09/10/2021 9:18 AM CDT): [...] (03/30/2021): Added automatically from request for surgery [id number] Assessment & Plan (08/09/2021 10:27 AM CDT): [...] (06/16-06/20) Assessment & Plan (11/26/2019 10:45 AM SPACE SCHEDULER): POA. Possibly community-acquired and/or 2/[address] Strep pneumoniae pos sputum cx. See SOB problem. Shortness of breath 11/20/2019 Assessment & Plan (11/27/2019 12:14 PM SPACE SCHEDULER): Concern for poss GVHD and/or poss COPD [...] 11/20/2019 Assessment & Plan (11/28/2024 3:54 PM SPACE SCHEDULER): Echo 11/24 at OSH: LVEF 40-45% wit hinferior akinesis, similar to EF in 2022, mild MR -Continue home metoprolol 12.5 mg daily, jardiance 10 mg daily Assessment & Plan (11/16/2024 3:06 AM SPACE SCHEDULER): Euvolemic on exam currently; no new SOB - continue metop, jardiance Assessment & Plan (07/26/2024 11:49 AM CDT): TTE 03/2024 with LVEF 50-55%. Pro BNP at OSH >30k. Last adm here 1012. Appears euvolemic. S/p Lasix at OSH and [place] [address] - repeat TTE 07/24: LVEF 30%, moderate [...] 1012 Assessment & Plan (11/28/2019 10:27 AM SPACE SCHEDULER): Closely monitor blood sugar to avoid hypoglycemia Assessment & Plan (11/27/2019 1:35 PM SPACE SCHEDULER): Closely monitor blood sugar to avoid hypoglycemia Assessment & Plan (11/26/2019 5:32 PM SPACE SCHEDULER): Closely monitor blood sugar to avoid hypoglycemia Assessment & Plan (11/25/2019 4:51 PM SPACE SCHEDULER): Closely monitor blood sugar to avoid hypoglycemia Assessment & Plan (11/24/2019 4:57 PM SPACE SCHEDULER): Closely monitor blood sugar to avoid hypoglycemia Assessment & Plan (11/23/2019 2:01 PM SPACE SCHEDULER): Closely monitor blood sugar to avoid hypoglycemia Assessment & Plan (11/24/2019 10:51 AM SPACE SCHEDULER): With diastolic dysfunction, new diagnosis. -Continue Lasix. [...] TID Assessment & Plan (11/20/2019 4:17 PM SPACE SCHEDULER): Continue gabapentin Tobacco abuse 11/20/2019 Assessment & Plan (06/16/2024 6:44 PM CDT): Encourage cessation Assessment & Plan (11/20/2019 4:18 PM SPACE SCHEDULER): Nicotine patch Depressed mood 11/24/2018 Assessment & Plan (11/24/2018 4:56 PM SPACE SCHEDULER): With feelings of depressed mood prior to admission. Outpt team with concerns for pt's wellbeing as he was more noncompliant and down over the phone prior to admit. -Consulted [facility] counseling 11/24, will plan to see him on AM of 11/25 at 0900. -Also consulted psychiatry, but felt that counseling service was appropriate first step and would only see him if they recommended pharm therapy. DVT (deep venous thrombosis) 11/23/2018 Assessment & Plan (11/28/2024 1:53 PM SPACE SCHEDULER): Hx of PE in 2012, DVT IJ 2017 -Continue home xarelto 20 mg dialy Assessment & Plan (11/18/2024 10:42 AM SPACE SCHEDULER): DVT lower ext 2012, DVT IJ 2017, [...] Xeralto Assessment & Plan (11/20/2019 3:57 PM SPACE SCHEDULER): Continue xarelto Assessment & Plan (11/23/2018 11:32 AM SPACE SCHEDULER): Cont Xarelto. Sinusitis 11/22/2018 Assessment & Plan (11/24/2018 4:48 PM SPACE SCHEDULER): Chronic issue over last 2 months. -With [...] no PE-->no pneumonia. COPD with exacerbation ([facility]) 11/22/2018 Assessment & Plan (07/24/2024 1:00 PM [...] exertion Assessment & Plan (11/20/2019 4:16 PM SPACE SCHEDULER): Continue inhalers Assessment & Plan (11/23/2018 11:29 AM SPACE SCHEDULER): Continues to smoke >1 ppd. -Cont steroids at current dose. -Cont Advair diskus BID, cont albuterol inh QID. -Encourage smoking cessation. Cont nicotine patch. Cough 10/17/2018 Pure hypercholesterolemia 08/04/2018 Assessment & Plan (02/12/2022 6:02 AM CDT): - continue home dose atorvastatin 40 mg PO daily Assessment & Plan (01/15/2020 3:22 PM SPACE SCHEDULER): -LDL at goal -will continue atorvastatin 40 mg daily Assessment & Plan (11/28/2019 10:27 AM SPACE SCHEDULER): On atorvastatin 40 mg daily Assessment & Plan (11/27/2019 1:35 PM SPACE SCHEDULER): On atorvastatin 40 mg daily Assessment & Plan (11/26/2019 5:32 PM SPACE SCHEDULER): On atorvastatin 40 mg daily Assessment & Plan (11/25/2019 4:50 PM SPACE SCHEDULER): On atorvastatin 40 mg daily Assessment & Plan (11/24/2019 4:57 PM SPACE SCHEDULER): On atorvastatin 40 mg daily Assessment & Plan (11/23/2019 2:02 PM SPACE SCHEDULER): On atorvastatin 40 mg daily Assessment & Plan (11/20/2019 4:18 PM SPACE SCHEDULER): Continue statin Assessment & Plan (08/07/2019 1:35 [...] level Assessment & Plan (01/15/2020 3:22 PM SPACE SCHEDULER): -vitamin D levels still low, unclear compliance -will continue current regimen Assessment & Plan (11/28/2019 10:29 AM SPACE SCHEDULER): Last vitamin-D level low at 16. Continue vitamin D2 09462 units weekly and vitamin D3 2000 units daily Assessment & Plan (11/27/2019 1:35 PM SPACE SCHEDULER): Last vitamin-D level low at 16. Continue vitamin D2 71927 units weekly and vitamin D3 2000 units daily Assessment & Plan (11/26/2019 5:32 PM SPACE SCHEDULER): Last vitamin-D level low at 16. Continue vitamin D2 63083 units weekly and vitamin D3 2000 units daily Assessment & Plan (11/25/2019 4:51 PM SPACE SCHEDULER): Last vitamin-D level low at 16. Continue vitamin D2 15438 units weekly and vitamin D3 2000 units daily Assessment & Plan (11/24/2019 4:57 PM SPACE SCHEDULER): Last vitamin-D level low at 16. Continue vitamin D2 51617 units weekly and vitamin D3 2000 units daily Assessment & Plan (11/23/2019 2:02 PM SPACE SCHEDULER): Last vitamin-D level low at 16. Continue vitamin D2 52667 units weekly and vitamin D3 2000 units [...] 05/06/2018 Assessment & Plan (12/30/2024 4:24 PM SPACE SCHEDULER): S/p 7+3 HIDAC consolidation * 3, decitabine maintenance on CALG 33510. Had relapse s/p AMD/MEC. 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 OI ppx: acv, Hold cresemba 2/2 transaminitis. Assessment & Plan (11/28/2024 1:55 PM SPACE SCHEDULER): S/p 7+3 HIDAC consolidation * 3, decitabine maintenance on CALG 58099. Had relapse s/p AMD/MEC. 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 -OI ppx: acv, crsemba Assessment & Plan (11/18/2024 10:41 AM SPACE SCHEDULER): AML. S/p 7+3 and hidac consolidation x3, decitabine maintenance on CALG 67666 protocol. Had relapse s/p AMD/MEC. 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 -Last seen by Dr. Del Valle 06/12/23, in remission - acyclovir 400 t.i.d and antifungal ppx with voriconazole vs cresemba. Plan med rec w Community Service Technician today Assessment & Plan (06/17/2024 3:28 PM CDT): Follows Dr. Bauman, last seen in clinic on 06/09/2023 -AML diagnosed in 2008 s/p 7+3 and HiDAC consolidation x3 followed by Decitabine maintenance on the CALGB 43788 protocol. -Followed by Relapsed disease, status post alloSCT sister 10 match D): 11/09/2009. -C/B GVHD of eyes [...] followed by Decitabine maintenance on the CALGB 56509 protocol. Followed by Relapsed disease, status post [...] Followed by Decitabine maintenance on the CALGB 66831 protocol and relapsed disease, status post AMD/MEC. - 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Most recent BMBx in our records is from 12/12/2017 with neg path and flow -OI prophylaxis, acyclovir Assessment & Plan (08/17/2021 3:45 PM CDT): S/p Busulfan and Cytoxan on the AMD allogeneic study with his sister, 10/10 match; with day 0 on 11/09/2009 after induction with 7+3 and HiDAC consolidation x3. Followed by Decitabine maintenance on the CALGB 72608 protocol and relapsed disease, status post AMD/MEC. 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 - Relapsed disease, status post an allogeneic transplant with busulfan and Cytoxan on the AMD allogeneic study with his sister, 10/10 match; with day 0 on 11/09/2009. - Currently in remission. Follows with Dr. Del Valle - On tacro, cellcept - OI ppx: Cont acyclovir. Added vori and bactrim (pt stated he was no longer taking at home). Assessment & Plan (11/23/2018 11:24 AM SPACE SCHEDULER): -s/p sibling allo SCT on 11/09/09, now in CR with no e/o recurrence. 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 -Cont OI ppx with Bactrim, acyclovir. Controlled type 2 diabetes aris hastings without complication, with long-term current use of insulin 05/06/2018 Assessment & Plan (12/19/2024 12:54 AM SPACE SCHEDULER): Continue home empagliflozin in the setting of HfrEF Sliding scale insulin Assessment & Plan (11/28/2024 1:56 PM SPACE SCHEDULER): Last A1c 6.0 on 11/17/24 -SSI Assessment & Plan (11/18/2024 10:43 AM SPACE SCHEDULER): On lantus/humalog at home (he reports taking [...] steroids Assessment & Plan (01/15/2020 3:24 PM SPACE SCHEDULER): -poorly controlled, exacerbated by prednisone use -Hgb [...] goal Assessment & Plan (11/28/2019 10:29 AM SPACE SCHEDULER): Patient has uncontrolled type 2 diabetes with [...] education. Assessment & Plan (11/27/2019 1:35 PM SPACE SCHEDULER): Patient has uncontrolled type 2 diabetes with [...] education. Assessment & Plan (11/26/2019 5:32 PM SPACE SCHEDULER): Patient has uncontrolled type 2 diabetes with [...] here. Assessment & Plan (11/25/2019 4:50 PM SPACE SCHEDULER): Patient has uncontrolled type 2 diabetes with [...] here. Assessment & Plan (11/24/2019 4:57 PM SPACE SCHEDULER): Patient has uncontrolled type 2 diabetes with [...] here. Assessment & Plan (11/23/2019 2:01 PM SPACE SCHEDULER): Patient has uncontrolled type 2 diabetes with [...] here. Assessment & Plan (11/28/2019 9:33 AM SPACE SCHEDULER): On basaglar 30 units AM and novolog [...] goal Assessment & Plan (11/24/2018 4:59 PM SPACE SCHEDULER): -Poorly controlled, recently stopped checking glucose as [...] needles and sent e-script to [facility] in [place] on 11/24. Pt has script for glucose [...] takes acyclovir and voriconazole for medical ppx Osnca-zqehpm-zjqw disease 07/08/2012 Assessment & Plan (11/30/2024 3:25 PM SPACE SCHEDULER): Probably missed 1-2 doses of tacrolimus and a week of cellcept dose at OSH due to medication on hold 2/ active infection. Discussed with BMT and confirmed [...] daily Assessment & Plan (11/28/2019 10:27 AM SPACE SCHEDULER): Prednisone decreased to 20 mg daily Assessment & Plan (11/27/2019 1:32 PM SPACE SCHEDULER): Prednisone decreased to 20 mg daily Assessment & Plan (11/26/2019 5:31 PM SPACE SCHEDULER): Plan to taper prednisone to 20 mg daily Assessment & Plan (11/25/2019 4:49 PM SPACE SCHEDULER): He is on prednisone 20 mg BID Assessment & Plan (11/24/2019 4:54 PM SPACE SCHEDULER): He is on prednisone 20 mg BID Assessment & Plan (11/23/2019 2:01 PM SPACE SCHEDULER): Starting on prednisone 20 twice daily today Assessment & Plan (11/27/2019 12:13 PM SPACE SCHEDULER): Continue cellcept 1 g BID and tacrolimus [...] 3x/weekly Assessment & Plan (11/24/2018 11:50 AM SPACE SCHEDULER): cGVHD of eyes, mouth, 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 -Cont pred 10 mg BID, MMF 1g BID, tacrolimus 0.5 mg QOD. -F/u tac trough (due 1/8 AM). Osteopenia 11/27/2011 Assessment & Plan (01/15/2020 3:23 PM SPACE SCHEDULER): -DEXA scan done 07/2019 revealed stable BMD -will continue vitamin D supplementation and dietary calcium Assessment & Plan (11/20/2019 3:55 PM SPACE SCHEDULER): Continue home vitamin D and dietary calcium [...] Date Resolved Date Llamas catheter in place 07/24/202405/2024 Assessment & Plan (07/24/2024 1:14 PM CDT): Noted llamas catheter in place. Unsure of reason of llamas placement overnight. Without urinary retention or incomplete emptying. No llamas cath placement order found. -remove llamas today with voiding trial Transient hypotension 04/02/20242024 Assessment & Plan (12/31/2024 5:44 PM SPACE SCHEDULER): 2/ decreased po intake. Resolved with fluids. Sepsis due to pneumonia 03/28/202412/19 Assessment & Plan (12/30/2024 5:09 PM SPACE SCHEDULER): -sputum culture from (12/23) grew Klebsiella - [...] 01/02/2025 Assessment & Plan (01/02/2025 6:21 PM SPACE SCHEDULER): Markedly elevated on 12/15 at OSH AST [...] ALT improving -trend lipase: normalized -IV fluids Encounters Date Type Department Care Team Description 5 9:15 AM SPACE SCHEDULER Home Care Visit [address] [place] [address] Roxy Aaron, PT PT VIRTUAL OASIS DISCHARGE 5 Home Care Visit [address] [place] [address] Júnior Lal, DISTRICT ADMINISTRATOR CASE COMMUNICATION 5 Home Care Visit [address] [place] [address] Júnior Lal, DISTRICT ADMINISTRATOR CASE COMMUNICATION 5 Results Follow-Up [facility] Gastroenterolo gy [address] [facility] [address] [facility] [address] [place] [address] Edith Orlando LPN 5 Home Care Visit [address] [place] [address] Júnior Lal, DISTRICT ADMINISTRATOR CASE COMMUNICATION 5 Home Care Visit [address] [place] [address] Roxy Aaron, PT CASE COMMUNICATION 5 Home Care Visit [address] [place] [address] Roxy Aaron, PT CARE CONFERENCE 5 9:30 AM SPACE SCHEDULER Home Care Visit [address] [place] [address] Dora De Dios, RN SN INITIAL EVALUATION [address] [facility] Scheduling [address] [place] [address] Resource, Homecare Scheduling 5 Documentation Gastroententer ology Perez, Bony Kirt, MD 5 Telephone [facility] Gastroenterolo [facility] [address] [facility] 12th [address] [place] [phone] Genna Hemphill RN 5 11:00 AM SPACE SCHEDULER Home Care Visit [address] [place] [address] Roxy Aaron, PT PT OASIS START OF CARE 5 Plan of Care Documentation [address] [place] [address] 5 Telephone [facility] Bone Marrow Transplant [address] [place] [address] Floor [address] [place] [phone] Josué Del Valle MD PhD 5 Orders Only [facility] Bone Marrow Transplant [address] [place] [address] Floor 6 [place] [phone] Josué Rice RN AML (acute myeloid leukemia) in remission (HCC) (Primary Dx) [address] [place] [address] Debra Barnes RN 5 Telephone [address] [place] [address] Debra Barnes RN 5 Telephone [facility] Bone Marrow Transplant [facility] [address] [place] [phone] Josué Del Valle MD PhD 5 8:17 AM SPACE SCHEDULER Anesthesia Event [facility] [address] [place] [address] Peter Crain MD 5 8:00 AM SPACE SCHEDULER - 5 8:30 AM SPACE SCHEDULER Surgery [facility] [address] [place] [phone] Gretta Stovall MD ENDO ADD ON ESOPHAGOGASTRODUODENOSCOPY BIOPSY 5 3:55 PM SPACE SCHEDULER Anesthesia Event [facility] [address] [place] [phone] Peter Crain MD 5 Orders Only [facility] Bone Marrow Transplant [facility] Floor [address] [place] [phone] Josué Del Valle MD PhD Acute myeloid leukemia in remission (HCC) (Primary Dx) 5 6:09 PM SPACE SCHEDULER - 5 5:34 PM SPACE SCHEDULER Hospital Encounter [address] [phone] Josué Del Valle MD PhD Brody Park MD Mehta-Shah, Neha, MD Acute myeloid leukemia in remission (HCC) (Primary Dx); AML (acute myeloid leukemia) in remission (HCC); Type 2 diabetes mellitus with hyperglycemia, with long-term current use of insulin (HCC); Gukdr-fmhdxg-kkus disease (HCC); H/O allogeneic bone marrow transplant (HCC); Pure hypercholesterolemia; Dysphagia, unspecified type; Esophageal dysphagia Discharge Disposition: Discharge to home, home health skilled care 5 Documentation [facility] Oncology [facility] Floor [address] [place] [phone] Josué Diego MD PhD 5 Telephone [facility] Infectious Diseases [address] [facility] [address] [place] [phone] Page Marsh 5 Telephone [facility] [facility] [address] [facility] 12th [place] [address] [place] [phone] Genna Hemphill RN 5 Telephone [facility] Bone Marrow Transplant [facility] Floor 6 [place] [phone] Josué Del Valle MD PhD 5 Telephone [facility] Infectious Diseases [address] [facility] [address] [place] [phone] Elisa Molina RN Rescheule missed October ID appt 5 12:35 PM SPACE SCHEDULER - 5 3:15 PM SPACE SCHEDULER Hospital Encounter [address] [phone] Josué Del Valle MD PhD Juan A Chanel DO AML s/p Allo SCT in 2008 (Primary Dx) Discharge Disposition: Discharge to home or self care 5 Documentation Bone Marrow Transplant Josué Diego MD PhD 5 Telephone [facility] Bone Marrow Transplant [address] [place] [phone] Josué Del Valle MD PhD 4 4:10 PM SPACE SCHEDULER Anesthesia Event [facility] [address] [place] [phone] Fermin Jiang MD Dubois, Ashley Michelle, AMAYA 4 3:55 PM SPACE SCHEDULER - 4 4:20 PM SPACE SCHEDULER Surgery [facility] [address] [place] [phone] Hany Martinez MD ESOPHAGOGASTRODUODENOSCOPY WITH REMOVAL FOREIGN BODY 4 Orders Only [facility] Bone Marrow Transplant [address] [place] [phone] Josué Del Valle MD PhD AML s/p Allo SCT in 2008 (Primary Dx) 4 11:27 PM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 SCHEDULER EGFR STAT 11/28/2024 1:40 PM SPACE SCHEDULER MANUAL DIFFERENTIAL STAT 11/28/2024 1:40 PM SPACE SCHEDULER CBC WITHOUT DIFFERENTIAL STAT 025 1:40 PM SPACE SCHEDULER TYPE AND SCREEN STAT 11/28/2024 1:40 PM SPACE SCHEDULER URIC ACID STAT 11/28/2024 1:40 PM SPACE SCHEDULER LACTATE DEHYDROGENASE STAT 11/28/2024 1:40 PM SPACE SCHEDULER PHOSPHORUS STAT 11/28/2024 1:40 PM SPACE SCHEDULER MAGNESIUM STAT 11/28/2024 1:40 PM SPACE SCHEDULER COMPREHENSIVE METABOLIC PANEL STAT 1:40 PM SPACE SCHEDULER BMT CBC STAT 11/28/2024 1:40 PM SPACE SCHEDULER FIBRINOGEN STAT 11/28/2024 1:32 PM SPACE SCHEDULER APTT STAT 11/28/2024 1:32 PM SPACE SCHEDULER PROTIME-INR STAT 11/28/2024 1:32 PM SPACE SCHEDULER POCT GLUCOSE DEVICE Routine 11/18/2024 11:20 AM SPACE SCHEDULER POCT GLUCOSE DEVICE Routine 11/18/2024 7:30 AM SPACE SCHEDULER POCT GLUCOSE DEVICE Routine 11/18/2024 4:25 AM SPACE SCHEDULER EGFR Routine 11/18/2024 2:38 AM SPACE SCHEDULER MANUAL DIFFERENTIAL Routine 11/18/2024 2:38 AM SPACE SCHEDULER CBC WITHOUT DIFFERENTIAL Routine 025 2:38 AM SPACE SCHEDULER BASIC METABOLIC PANEL Routine 11/18/2024 2:38 AM SPACE SCHEDULER PHOSPHORUS Routine 11/18/2024 2:38 AM SPACE SCHEDULER MAGNESIUM Routine 11/18/2024 2:38 AM SPACE SCHEDULER BMT CBC Routine 11/18/2024 2:38 AM SPACE SCHEDULER POCT GLUCOSE DEVICE Routine 11/18/2024 12:47 AM SPACE SCHEDULER POCT GLUCOSE DEVICE Routine 11/17/2024 8:11 PM SPACE SCHEDULER POCT GLUCOSE DEVICE Routine 11/17/2024 5:32 PM SPACE SCHEDULER POCT GLUCOSE DEVICE Routine 11/17/2024 12:03 PM SPACE SCHEDULER POCT GLUCOSE DEVICE Routine 11/17/2024 11:14 AM SPACE SCHEDULER POCT GLUCOSE DEVICE Routine 11/17/2024 7:19 AM SPACE SCHEDULER POCT GLUCOSE DEVICE Routine 11/17/2024 4:32 AM SPACE SCHEDULER POCT GLUCOSE DEVICE Routine 11/17/2024 12:33 AM SPACE SCHEDULER HEMOGLOBIN A1C Routine 11/17/2024 12:31 AM SPACE SCHEDULER URIC ACID Routine 11/17/2024 12:31 AM SPACE SCHEDULER EGFR Routine 11/17/2024 12:31 AM SPACE SCHEDULER LACTATE DEHYDROGENASE Routine 11/17/2024 12:31 AM SPACE SCHEDULER MANUAL DIFFERENTIAL Routine 11/17/2024 12:31 AM SPACE SCHEDULER CBC WITHOUT DIFFERENTIAL Routine 024 12:31 AM SPACE SCHEDULER BASIC METABOLIC PANEL Routine 11/17/2024 12:31 AM SPACE SCHEDULER PHOSPHORUS Routine 11/17/2024 12:31 AM SPACE SCHEDULER MAGNESIUM Routine 11/17/2024 12:31 AM SPACE SCHEDULER BMT CBC Routine 11/17/2024 12:31 AM SPACE SCHEDULER POCT GLUCOSE DEVICE Routine 11/16/2024 8:43 PM SPACE SCHEDULER POCT GLUCOSE DEVICE Routine 11/16/2024 5:06 PM SPACE SCHEDULER SURGICAL PATHOLOGY Routine 11/16/2024 4:53 PM SPACE SCHEDULER Food impaction of esophagus, initial encounter ENDO ADD ON ESOPHAGOGASTRODUODENOSCOPY BIOPSY 11/16/2024 4:15 PM SPACE SCHEDULER Food impaction of esophagus, initial encounter ESOPHAGOGASTRODUODENOSCOPY WITH REMOVAL FOREIGN BODY 11/16/2024 4:15 PM SPACE SCHEDULER Food impaction of esophagus, initial encounter EGD 11/16/2024 4:05 PM SPACE SCHEDULER POCT GLUCOSE DEVICE Routine 11/16/2024 3:54 PM SPACE SCHEDULER POCT GLUCOSE DEVICE Routine 11/16/2024 11:[address] CHEST ABDOMEN W CONTRAST ED Urgent/IP Urgent 11/16/2024 10:32 AM SPACE SCHEDULER POCT GLUCOSE DEVICE Routine 11/16/2024 7:57 AM SPACE SCHEDULER POCT GLUCOSE DEVICE Routine 11/16/2024 3:55 AM SPACE SCHEDULER EGFR Routine 11/16/2024 3:38 AM SPACE SCHEDULER URIC ACID STAT 11/16/2024 3:38 AM SPACE SCHEDULER LACTATE DEHYDROGENASE STAT 11/16/2024 3:38 AM SPACE SCHEDULER PHOSPHORUS STAT 11/16/2024 3:38 AM SPACE SCHEDULER MAGNESIUM STAT 11/16/2024 3:38 AM SPACE SCHEDULER APTT Routine 11/16/2024 3:38 AM SPACE SCHEDULER COMPREHENSIVE METABOLIC PANEL Routine 3:38 AM SPACE SCHEDULER FIBRINOGEN STAT 11/16/2024 3:38 AM SPACE SCHEDULER TYPE AND SCREEN STAT 11/16/2024 3:38 AM SPACE SCHEDULER EGFR STAT 11/16/2024 12:13 AM SPACE SCHEDULER DIFFERENTIAL AUTO STAT 11/16/2024 12:13 AM SPACE SCHEDULER PROTIME-INR STAT 11/16/2024 12:13 AM SPACE SCHEDULER BASIC METABOLIC PANEL STAT 11/16/2024 12:13 AM SPACE SCHEDULER CBC WITH AUTO DIFFERENTIAL STAT 11/16 12:13 AM SPACE SCHEDULER POCT GLUCOSE DEVICE Routine 11/16/2024 12:12 AM SPACE SCHEDULER LIPID PANEL Add-On 07/14/2024 6:22 PM CDT ALBUMIN CREATININE RATIO, URINE STAT 02/28/2022 8:57 AM CDT Type 2 diabetes mellitus with hyperosmolarity without coma, with long-term current use of insulin (HCC) Vitamin D deficiency Ycfxg-[id number]-[id number] disease (HCC) Other osteoporosis without current pathological fracture Screening for thyroid disorder PSA SCREEN Routine Gen Lab 02/04/2017 8:36 AM CDT from Last 3 Months or Most Recently Relevant to Health Maintenance Results * POCT glucose (01/02/2025 5:11 PM SPACE SCHEDULER) Glucose, POC 82 70 - 199 mg/dL Blood 01/02/2025 5:11 PM SPACE SCHEDULER 01/02/2025 5:11 PM SPACE SCHEDULER us Eleni Junior MD LAB POCT ORDERABLES - DEVICE [place] [address] * POCT glucose (01/02/2025 4:18 PM SPACE SCHEDULER) Glucose, POC 74 70 - 199 mg/dL Blood 01/02/2025 4:18 PM SPACE SCHEDULER 01/02/2025 4:18 PM SPACE SCHEDULER Eleni Junior MD LAB POCT ORDERABLES - DEVICE Final Result Performing Organization Address City/[facility]/ZIP Co de [place] [address] * POCT glucose (01/02/2025 12:14 PM SPACE SCHEDULER) Glucose, POC 100 70 - 199 mg/dL Blood 01/02/2025 12:1 4 PM SPACE SCHEDULER 01/02/2025 12:14 PM SPACE SCHEDULER Eleni Junior MD LAB POCT ORDERABLES - DEVICE Final Result Performing Organization Address City/[facility]/ZIP Co de [place] [address] * POCT glucose (01/02/2025 8:05 AM SPACE SCHEDULER) Glucose, POC 106 70 - 199 mg/dL Blood 01/02/2025 8:05 AM SPACE SCHEDULER 01/02/2025 8:05 AM SPACE SCHEDULER Eleni Junior MD LAB POCT ORDERABLES - DEVICE Final Result Performing Organization Address City/[facility]/ZIP Co de [place] [address] * eGFR (01/02/2025 1:50 AM SPACE SCHEDULER) eGFR >90 >=60 mL/min/1. 73 m2 Comment: [...] last reviewed 2021. Blood 01/02/2025 1:50 AM SPACE SCHEDULER 01/02/2025 2:14 AM SPACE SCHEDULER Jared Davis MD LAB BLOOD ORDERABLES Final R esult [facility] [address] Department [place] [address] * (ABNORMAL) Manual Differential (01/02/2025 1:50 AM SPACE SCHEDULER) Differential Manual Cells Counted 121 [facility] Neutrophil abs 2.8 1.5 - 6.5 K/cumm [facility] Imm gran abs 0.0 0.0 - 0.1 K/cumm [facility] Lymphocyte abs 3.2 0.8 - 3.3 K/cumm [facility] Monocyte abs 0.5 0.2 - 0.8 K/cumm [facility] Eosinophil abs 0.1 0.0 - 0.5 K/cumm [facility] Basophil abs 0.4(H) 0.0 - 0.1 K/cumm [facility] Neutrophil pct 40.5 % [facility] Comment: Interpretive Data Percent cell count reference ranges are not reported, since discordance with absolute values may lead to misinterpretation of CBC data. Current Interpretive Data was last revised on 2018. Lymphocyte pct 47.1 % [facility] Comment: Interpretive Data Percent cell count reference ranges are not reported, since discordance with absolute values may lead to misinterpretation of CBC data. Current Interpretive Data was last revised on 2018. Monocyte pct 6.6 % [facility] Comment: Interpretive Data Percent cell count reference ranges are not reported, since discordance with absolute values may lead to misinterpretation of CBC data. Current Interpretive Data was last revised on 2018. Eosinophil pct 0.8 % [facility] Comment: Interpretive Data Percent cell count reference ranges are not reported, since discordance with absolute values may lead to misinterpretation of CBC data. Current Interpretive Data was last revised on 2018. Basophil pct 5.0 % [facility] Comment: Interpretive Data Percent cell count reference ranges are not reported, since discordance with absolute values may lead to misinterpretation of CBC data. Current Interpretive Data was last revised on 2018. RBC morphology Present(A) [facility] Anisocytosis Moderate(A) [facility] Macrocytes 8-15/HPF(A) [facility] Platelet estimate Adequate [facility] Blood 01/02/2025 1:50 AM SPACE SCHEDULER 01/02/2025 2:14 AM SPACE SCHEDULER Jared Davis MD LAB BLOOD ORDERABLES Edited Result - Final [facility] [address] Department [place] [address] * (ABNORMAL) Reticulocyte Count (01/02/2025 1:50 AM SPACE SCHEDULER) Retics, absolute 0.135(H) 0.020 - 0.087 M/cumm Retics 4.2(H) 0.4 - 2.9 % [facility] Reticulocyte Hgb 38.1(H) 30.5 - 38.0 pg [facility] Blood 01/02/2025 1:50 AM SPACE SCHEDULER 01/02/2025 2:21 AM SPACE SCHEDULER Eleni Junior MD LAB BLOOD ORDERABLES Final Re sult [facility] Department [place] [address] * (ABNORMAL) CBC without differential (01/02/2025 1:50 AM SPACE SCHEDULER) Pathologist [facility] WBC 6.9 3.8 - 9.9 K/cumm Hgb 10.7(L) 13.0 - 17.5 g/dL [facility] Hct 32.5(L) 38.9 - 50.3 % [facility] Plt 312 150 - 400 K/cumm [facility] MPV 10.8 9.1 - 12.3 fL [facility] RBC 3.25(L) 4.30 - 5.80 M/cumm [facility] MCV 100.0(H) 81.3 - 96.4 fL [facility] MCH 32.9 27.1 - 33.3 pg [facility] MCHC 32.9 32.3 - 35.7 g/dL [facility] RDW CV 18.2(H) 11.1 - 14.9 % [facility] RDW SD 66.1(H) 35.7 - 48.1 fL [facility] NRBC abs 0.02(H) 0.00 - 0.01 K/cumm [facility] Blood 01/02/2025 1:50 AM SPACE SCHEDULER 01/02/2025 2:14 AM SPACE SCHEDULER us Jared Davis MD LAB BLOOD ORDERABLES Final R esult [facility] [place] [address] * Phosphorus (01/02/2025 1:50 AM SPACE SCHEDULER) Phosphorus, pl 2.9 2.3 - 4.5 mg/dL Blood 01/02/2025 1:50 AM SPACE SCHEDULER 01/02/2025 2:14 AM SPACE SCHEDULER Jared Davis MD LAB BLOOD ORDERABLES Final R esult Performing Organization Address [facility] Co de [place] [address] * Magnesium (01/02/2025 1:50 AM SPACE SCHEDULER) Magnesium 1.4 1.4 - 2.5 mg/dL Blood 01/02/2025 1:50 AM SPACE SCHEDULER 01/02/2025 2:14 AM SPACE SCHEDULER Jared Davis MD LAB BLOOD ORDERABLES Final R esult Performing Organization Address [facility] Co de [place] [address] * Folate (01/02/2025 1:50 AM SPACE SCHEDULER) Folic acid 10.5 >=5.0 ng/mL Blood 01/02/2025 1:50 AM SPACE SCHEDULER 01/02/2025 2:14 AM SPACE SCHEDULER us Eleni Junior MD LAB BLOOD ORDERABLES Final Re sult Performing Organization Address [facility] Co de Phone Number [facility] [place] [address] * Vitamin B12 (01/02/2025 1:50 AM SPACE SCHEDULER) Vitamin B12 785 230 - 1,250 pg/mL Blood 01/02/2025 1:50 AM SPACE SCHEDULER 01/02/2025 2:14 AM SPACE SCHEDULER Eleni Junior MD LAB BLOOD ORDERABLES Final Re sult Performing Organization Address City/[facility] Co de Phone Number [facility] [place] [address] * (ABNORMAL) Hepatic function panel (01/02/2025 1:50 AM SPACE SCHEDULER) [facility] Bilirubin, total 0.3 0.1 - 1.2 mg/dL Bilirubin, direct <0.2 0.1 - 0.3 mg/dL [facility] Protein, pl 6.8 6.5 - 8.5 g/dL [facility] Albumin 3.0(L) 3.5 - 5.0 g/dL [facility] Alk phos 166(H) 40 - 130 Units/L [facility] ALT 51 7 - 55 Units/L [facility] AST 43 10 - 50 Units/L [facility] Blood 01/02/2025 1:50 AM SPACE SCHEDULER 01/02/2025 2:14 AM SPACE SCHEDULER Kay La MD LAB BLOOD ORDERABLES Pilar l Result [facility] [address] Department [place] [address] * (ABNORMAL) Basic metabolic panel (01/02/2025 1:50 AM SPACE SCHEDULER) [facility] Sodium 138 135 - 145 mmol/L Potassium, pl 4.3 3.3 - 4.9 mmol/L [facility] Chloride 103 97 - 110 mmol/L [facility] CO2 30 22 - 32 mmol/L [facility] Anion gap 5 2 - 15 mmol/L [facility] BUN 8 6 - 25 mg/dL [facility] Creatinine 0.71(L) 0.80 - 1.30 mg/dL [facility] Glucose 107 70 - 199 mg/dL [facility] Comment: Interpretive Data Fasting glucose [...] 2022. Calcium 8.5 8.5 - 10.3 mg/dL [facility] Blood 01/02/2025 1:50 AM SPACE SCHEDULER 01/02/2025 2:14 AM SPACE SCHEDULER Narrative [facility] - 01/02/2025 2:43 AM SPACE SCHEDULER Daily except Saturday and . Morning draw. Jared Davis MD LAB BLOOD ORDERABLES Final R esult Performing Organization Address City/[facility]/ZIP Co de Phone Number [facility] Department [place] [address] * POCT glucose (01/01/2025 7:31 PM SPACE SCHEDULER) Glucose, POC 100 70 - 199 mg/dL Blood 01/01/2025 7:31 PM SPACE SCHEDULER 01/01/2025 7:31 PM SPACE SCHEDULER Brody Park MD LAB POCT ORDERABLES - DEVICE Final Result Performing Organization Address [facility] Co de Phone Number [facility] Department [place] [address] * Tacrolimus level trough (01/01/2025 7:29 PM SPACE SCHEDULER) Pathologist [facility] Tacrolimus trough <1.0 ng/mL Comment: Undetectable. Please verify that the correct immunosuppressant test was requested. Interpretive Data Testing performed by liquid chromatography-tandem mass spectrometry. Therapeutic concentrations vary depending on type of transplanted organ and time elapsed since transplant. Typical trough concentrations range from 5-15 ng/mL. This test was developed and its performance characteristics determined by the [facility] consistent with CLIA requirements. This test has not been cleared or approved by the [place] Food and Drug administration. Current interpretive data last reviewed 2020. Blood 01/01/2025 7:29 PM SPACE SCHEDULER 01/01/2025 7:43 PM SPACE SCHEDULER us Lalo Perez MD LAB BLOOD ORDERABLES Final Resu lt Performing Organization Address [facility] Co de Phone Number [facility] [place] [address] * POCT glucose (01/01/2025 5:58 PM SPACE SCHEDULER) Glucose, POC 122 70 - 199 mg/dL Blood 01/01/2025 5:58 PM SPACE SCHEDULER 01/01/2025 5:58 PM SPACE SCHEDULER us Brody Park MD LAB POCT ORDERABLES - DEVICE Final Result Performing Organization Address [facility] Co de Phone Number [facility] [place] [address] * POCT glucose (01/01/2025 11:59 AM SPACE SCHEDULER) Glucose, POC 71 70 - 199 mg/dL Blood 01/01/2025 11:5 9 AM SPACE SCHEDULER 01/01/2025 11:59 AM SPACE SCHEDULER us Brody Park MD LAB POCT ORDERABLES - DEVICE Final Result Performing Organization Address [facility] de Phone Number [facility] [place] [address] * Surgical pathology (01/01/2025 8:31 AM SPACE SCHEDULER) Tissue (Esophageal biopsy) 01/01/2025 8:31 AM SPACE SCHEDULER Comment:Stain for MAC (mycob acteria) Tissue (Esophageal biopsy) 01/01/2025 8:34 AM SPACE SCHEDULER Comment:Stain for MAC (mycob acteria) Narrative PATHOLOGY [facility] - 01/06/2025 9:25 AM SPACE SCHEDULER EPIC results best viewed via link to PDF [facility] [place] [address] Note to Patients: This report may contain [...] details. SURGICAL PATHOLOGY REPORT FINAL Patient Name: BIR JONES Gender: Aris : 1965 (Age: 59) Address: [address] [place], [place] [id number] Hospital #: [id number] Taken:01/01/2025 Received:01/01/2025 Reported: 01/06/2025 Patient Type: [facility] Inpatient Service: BoneMarTranspl Location: [place] [address] Physician(s): Toño Gonzalez DO Diagnosis: A. Esophagus, distal nodular mucosa, biopsy [...] x 0.1 cm. Labeled B1. Jar 0. 01/01/2025 10:45 PA(s): Anaid Laura By this signature, I attest that the above diagnosis is based upon my personal examination of the slides(and/or other material). Addenda/Procedures The performance characteristics of some immunohistochemical stains, fluorescence in-situ hybridization tests and immunophenotyping by flow cytometry cited in this report (if any) were determined by the Surgical Pathology and Flow Cytometry Departments at [facility] as part of an ongoing quality control tester program and in compliance with federally mandated [...] Surgical Pathology and Flow Cytometry Departments of [facility]. It has not been cleared or approved by the U. S. Food and Drug Administration. IMAGES AND SCANNED DOCUMENTS, IF INCLUDED, ONLY VIEWABLE IN PDF VERSION OF REPORT us Gretta Stovall MD LAB PATHOLOGY ORDERABLES Final Result PATHOLOGY [facility] 3rd Floor [place], [place] [phone] * EGD (01/01/2025 8:26 AM SPACE SCHEDULER) Anatomical Region Laterality Modality Other Narrative Procedure Note Gretta Stovall MD - 01/01/2025 8:26 AM CST [facility] Patient Name: Bri Jones Procedure Date: 01/01/2025 8:26 AM Date of : 1965 Admit Type: Inpatient Age: 59 Gender: Male Attending MD: Gretta Stovall M.D. Room: [facility] ENDOSCOPY Note Status: Finalized Procedure: Upper [...] passed under direct vision. The [id number] [id number] endoscope was introduced through the mouth, and [...] 0 Note Initiated On: 01/01/2025 8:26 AM Gretta Stovall MD ENDOSCOPY PROCEDURES Pilar l Result * POCT glucose (01/01/2025 8:14 AM SPACE SCHEDULER) Glucose, POC 77 70 - 199 mg/dL Blood 01/01/2025 8:14 AM SPACE SCHEDULER 01/01/2025 8:14 AM SPACE SCHEDULER Brody Park MD LAB POCT ORDERABLES - DEVICE Final Result [facility] [address] Department [place] [address] * eGFR (01/01/2025 2:18 AM SPACE SCHEDULER) eGFR >90 >=60 mL/min/1. 73 m2 Comment: [...] last reviewed 2021. Blood 01/01/2025 2:18 AM SPACE SCHEDULER 01/01/2025 2:27 AM SPACE SCHEDULER Jared Davis MD LAB BLOOD ORDERABLES Final R esult [facility] [address] Department [place] [address] * (ABNORMAL) Manual Differential (01/01/2025 2:18 AM SPACE SCHEDULER) Differential Manual [facility] Neutrophil abs 2.4 1.5 - 6.5 K/cumm [facility] Imm gran abs 0.0 0.0 - 0.1 K/cumm [facility] Lymphocyte abs 2.2 0.8 - 3.3 K/cumm [facility] Monocyte abs 1.0(H) 0.2 - 0.8 K/cumm [facility] Eosinophil abs 0.2 0.0 - 0.5 K/cumm [facility] Basophil abs 0.0 0.0 - 0.1 K/cumm [facility] Neutrophil pct 40.1 % [facility] Comment: Interpretive Data Percent cell count reference ranges are not reported, since discordance with absolute values may lead to misinterpretation of CBC data. Current Interpretive Data was last revised on 2018. Lymphocyte pct 37.6 % [facility] Comment: Interpretive Data Percent cell count reference ranges are not reported, since discordance with absolute values may lead to misinterpretation of CBC data. Current Interpretive Data was last revised on 2018. Monocyte pct 17.1 % [facility] Comment: Interpretive Data Percent cell count reference ranges are not reported, since discordance with absolute values may lead to misinterpretation of CBC data. Current Interpretive Data was last revised on 2018. Eosinophil pct 4.3 % [facility] Comment: Interpretive Data Percent cell count reference ranges are not reported, since discordance with absolute values may lead to misinterpretation of CBC data. Current Interpretive Data was last revised on 2018. Basophil pct 0.9 % [facility] Comment: Interpretive Data Percent cell count reference ranges are not reported, since discordance with absolute values may lead to misinterpretation of CBC data. Current Interpretive Data was last revised on 2018. RBC morphology Present(A) [facility] Anisocytosis Marked(A) [facility] Macrocytes 8-15/HPF(A) [facility] Platelet estimate Adequate [facility] Blood 01/01/2025 2:18 AM SPACE SCHEDULER 01/01/2025 2:28 AM SPACE SCHEDULER Jared Davis MD LAB BLOOD ORDERABLES Edited Result - Final [facility] [address] Department [place] [address] * (ABNORMAL) CBC without differential (01/01/2025 2:18 AM SPACE SCHEDULER) WBC 5.9 3.8 - 9.9 K/cumm Hgb 10.6(L) 13.0 - 17.5 g/dL [facility] Hct 32.3(L) 38.9 - 50.3 % [facility] Plt 274 150 - 400 K/cumm [facility] MPV 10.7 9.1 - 12.3 fL [facility] RBC 3.25(L) 4.30 - 5.80 M/cumm [facility] MCV 99.4(H) 81.3 - 96.4 fL [facility] MCH 32.6 27.1 - 33.3 pg [facility] MCHC 32.8 32.3 - 35.7 g/dL [facility] RDW CV 18.0(H) 11.1 - 14.9 % [facility] RDW SD 65.3(H) 35.7 - 48.1 fL [facility] NRBC abs 0.02(H) 0.00 - 0.01 K/cumm [facility] Blood 01/01/2025 2:18 AM SPACE SCHEDULER 01/01/2025 2:28 AM SPACE SCHEDULER Jared Davis MD LAB BLOOD ORDERABLES Final R esult Performing Organization Address City/[facility] Co de Phone Number [facility] [email or web address] [address] * Phosphorus (01/01/2025 2:18 AM SPACE SCHEDULER) Phosphorus, pl 2.7 2.3 - 4.5 mg/dL Blood 01/01/2025 2:18 AM SPACE SCHEDULER 01/01/2025 2:27 AM SPACE SCHEDULER Jared Davis MD LAB BLOOD ORDERABLES Final R esult Performing Organization Address [facility] de Phone Number [facility] [email or web address] [address] * Magnesium (01/01/2025 2:18 AM SPACE SCHEDULER) Magnesium 1.7 1.4 - 2.5 mg/dL Blood 01/01/2025 2:18 AM SPACE SCHEDULER 01/01/2025 2:27 AM SPACE SCHEDULER Jared Davis MD LAB BLOOD ORDERABLES Final R esult Performing Organization Address [facility] de Phone Number [facility] [email or web address] [address] * (ABNORMAL) Hepatic function panel (01/01/2025 2:18 AM SPACE SCHEDULER) Bilirubin, total 0.3 0.1 - 1.2 mg/dL Bilirubin, direct <0.2 0.1 - 0.3 mg/dL [facility] Protein, pl 6.6 6.5 - 8.5 g/dL [facility] Albumin 2.7(L) 3.5 - 5.0 g/dL [facility] Alk phos 164(H) 40 - 130 Units/L [facility] ALT 58(H) 7 - 55 Units/L [facility] AST 49 10 - 50 Units/L [facility] Blood 01/01/2025 2:18 AM SPACE SCHEDULER 01/01/2025 2:27 AM SPACE SCHEDULER us Kay La MD LAB BLOOD ORDERABLES Pilar armas Result [facility] [address] [place] [address] * (ABNORMAL) Basic metabolic panel (01/01/2025 2:18 AM SPACE SCHEDULER) Pathologist [facility] Sodium 136 135 - 145 mmol/L Potassium, pl 4.2 3.3 - 4.9 mmol/L [facility] Chloride 102 97 - 110 mmol/L [facility] CO2 29 22 - 32 mmol/L [facility] Anion gap 5 2 - 15 mmol/L [facility] BUN 12 6 - 25 mg/dL [facility] Creatinine 0.70(L) 0.80 - 1.30 mg/dL [facility] Glucose 165 70 - 199 mg/dL [facility] Comment: Interpretive Data Fasting glucose [...] 2022. Calcium 8.6 8.5 - 10.3 mg/dL [facility] Blood 01/01/2025 2:18 AM SPACE SCHEDULER 01/01/2025 2:27 AM SPACE SCHEDULER Narrative [facility] - 01/01/2025 3:35 AM SPACE SCHEDULER Daily except Saturday and . Morning draw. us Jared Davis MD LAB BLOOD ORDERABLES Final R esult Performing Organization Address [facility] Co de Phone Number [facility] [place] [address] * POCT glucose (12/31/2024 7:31 PM SPACE SCHEDULER) Glucose, POC 115 70 - 199 mg/dL Blood 12/31/2024 7:31 PM SPACE SCHEDULER 12/31/2024 7:31 PM SPACE SCHEDULER us Brody Park MD LAB POCT ORDERABLES - DEVICE Final Result Performing Organization Address [facility] de Phone Number [facility] [email or web address] [address] * POCT glucose (12/31/2024 3:31 PM SPACE SCHEDULER) Glucose, POC 78 70 - 199 mg/dL Blood 12/31/2024 3:31 PM SPACE SCHEDULER 12/31/2024 3:31 PM SPACE SCHEDULER us Brody Park MD LAB POCT ORDERABLES - DEVICE Final Result Performing Organization Address [facility] de Phone Number [facility] [email or web address] [address] * POCT glucose (12/31/2024 11:16 AM SPACE SCHEDULER) Glucose, POC 90 70 - 199 mg/dL Blood 12/31/2024 11:1 6 AM SPACE SCHEDULER 12/31/2024 11:16 AM SPACE SCHEDULER us Brody Park MD LAB POCT ORDERABLES - DEVICE Final Result Performing Organization Address [facility] de Phone Number [email or web address] [address] * Troponin I high-sensitivity (12/31/2024 8:28 AM SPACE SCHEDULER) [facility] Trop I hs 7 <=35 ng/L Comment: Interpretive Data For further hscTnI resources including the diagnostic algorithm and an aid in interpretation, copy and paste this link: [email or web address]/[email or web address] Current Interpretive Data last revised 2020. Blood 12/31/2024 8:28 AM SPACE SCHEDULER 12/31/2024 8:38 AM SPACE SCHEDULER us Lalo Perez MD LAB BLOOD ORDERABLES Final Resu lt Performing Organization Address [facility] Co de Phone Number [facility] Department [place] [address] * POCT glucose (12/31/2024 8:26 AM SPACE SCHEDULER) [facility] Glucose, POC 86 70 - 199 mg/dL Blood 12/31/2024 8:26 AM SPACE SCHEDULER 12/31/2024 8:26 AM SPACE SCHEDULER Brody Park MD LAB POCT ORDERABLES - DEVICE Final Result Performing Organization Address [facility] de Phone Number ZULEMA [facility] [place] [address] * ECG 12 lead (12/31/2024 5:14 AM SPACE SCHEDULER) [facility] Ventricular Rate EKG/Min 143 BPM [facility] Atrial Rate 133 BPM [facility] QRS-Interval (MSEC) 96 ms [facility] QT-Interval (MSEC) 324 ms [facility] QTc 500 ms [facility] R [place] 116 degrees [facility] T [place] 47 degrees [facility] Diagnosis Supraventricular tachycardia Low voltage QRS Left posterior fascicular block Cannot rule out Anterior infarct Abnormal ECG When compared with ECG of 12/18/2024 SVT is present Confirmed by SOHAM WINTERS M.D ([id number]) on 01/01/2025 10:04:29 AM [facility] 12/31/2024 5:14 AM SPACE SCHEDULER 01/01/2025 10:04 AM SPACE SCHEDULER Jared Davis MD ECG ORDERABLES Final Result Performing Organization Address [facility]/ZIP Co de Phone Number [facility] * Sepsis Lactate w/ Reflex (12/31/2024 2:22 AM SPACE SCHEDULER) [facility] Sepsis Lactate 1.2 0.7 - 2.0 mmol/L Blood 12/31/2024 2:22 AM SPACE SCHEDULER 12/31/2024 2:37 AM SPACE SCHEDULER [facility]ative [facility] - 12/31/2024 2:38 AM SPACE SCHEDULER Obtain Lactate w/ reflex STAT. Lactate result [...] esult Performing Organization Address [facility]/ZIP Co de Phone Number [facility] [address] [place] [address] * eGFR (12/31/2024 2:22 AM SPACE SCHEDULER) [facility] eGFR >90 >=60 mL/min/1. 73 m2 Comment: [...] last reviewed 2021. Blood 12/31/2024 2:22 AM SPACE SCHEDULER 12/31/2024 2:47 AM SPACE SCHEDULER Jared Davis MD LAB BLOOD ORDERABLES Final R esult [facility] [address] [place] [address] * (ABNORMAL) Manual Differential (12/31/2024 2:22 AM SPACE SCHEDULER) Differential Manual Cells Counted 115 [facility] Neutrophil abs 2.8 1.5 - 6.5 K/cumm [facility] Imm gran abs 0.1 0.0 - 0.1 K/cumm [facility] Lymphocyte abs 3.8(H) 0.8 - 3.3 K/cumm [facility] Monocyte abs 0.6 0.2 - 0.8 K/cumm [facility] Eosinophil abs 0.5 0.0 - 0.5 K/cumm [facility] Basophil abs 0.1 0.0 - 0.1 K/cumm [facility] Neutrophil pct 35.7 % [facility] Comment: Interpretive Data Percent cell count reference ranges are not reported, since discordance with absolute values may lead to misinterpretation of CBC data. Current Interpretive Data was last revised on 2018. Lymphocyte pct 48.6 % [facility] Comment: Interpretive Data Percent cell count reference ranges are not reported, since discordance with absolute values may lead to misinterpretation of CBC data. Current Interpretive Data was last revised on 2018. Monocyte pct 7.8 % [facility] Comment: Interpretive Data Percent cell count reference ranges are not reported, since discordance with absolute values may lead to misinterpretation of CBC data. Current Interpretive Data was last revised on 2018. Eosinophil pct 6.1 % [facility] Comment: Interpretive Data Percent cell count reference ranges are not reported, since discordance with absolute values may lead to misinterpretation of CBC data. Current Interpretive Data was last revised on 2018. Basophil pct 0.9 % [facility] Comment: Interpretive Data Percent cell count reference ranges are not reported, since discordance with absolute values may lead to misinterpretation of CBC data. Current Interpretive Data was last revised on 2018. Metamyelocyte pct 0.9 % [facility] RBC morphology Present(A) [facility] Anisocytosis Marked(A) [facility] Macrocytes > 15/HPF(A) [facility] Platelet estimate Adequate [facility] Blood 12/31/2024 2:22 AM SPACE SCHEDULER 12/31/2024 2:37 AM SPACE SCHEDULER us Jared Davis MD LAB BLOOD ORDERABLES Final R esult [facility] [address] [place] [address] * Protime-INR (12/31/2024 2:22 AM SPACE SCHEDULER) PT 12.2 9.7 - 13.0 sec INR 1.13 0.90 - 1.20 [facility] Comment: Interpretive data Oral anticoagulant therapeutic ranges: Venous thromboembolism prophylaxis or treatment: 2.0-3.0 CARDIOLOGY Standard range: 2.0-3.0 High-intensity range: 2.5-3.5 Refer to indication-specific guidelines for appropriate target ranges for prosthetic heart valve replacement. Current interpretive data was last revised on 2019. Blood 12/31/2024 2:22 AM SPACE SCHEDULER 12/31/2024 2:42 AM SPACE SCHEDULER us Kalin La MD LAB BLOOD ORDERABLES Final Result Performing Organization Address [facility] Co de Phone Number [facility] [email or web address] [address] * (ABNORMAL) CBC without differential (12/31/2024 2:22 AM SPACE SCHEDULER) Pathologist [facility] WBC 7.8 3.8 - 9.9 K/cumm Hgb 10.8(L) 13.0 - 17.5 g/dL [facility] Hct 32.8(L) 38.9 - 50.3 % [facility] Plt 270 150 - 400 K/cumm [facility] MPV 11.0 9.1 - 12.3 fL [facility] RBC 3.35(L) 4.30 - 5.80 M/cumm [facility] MCV 97.9(H) 81.3 - 96.4 fL [facility] MCH 32.2 27.1 - 33.3 pg [facility] MCHC 32.9 32.3 - 35.7 g/dL [facility] RDW CV 17.7(H) 11.1 - 14.9 % [facility] RDW SD 61.9(H) 35.7 - 48.1 fL [facility] NRBC abs 0.00 0.00 - 0.01 K/cumm [facility] Blood 12/31/2024 2:22 AM SPACE SCHEDULER 12/31/2024 2:37 AM SPACE SCHEDULER Jared Davis MD LAB BLOOD ORDERABLES Final R esult [facility] [email or web address] [address] * Type and screen (12/31/2024 2:22 AM SPACE SCHEDULER) Pathologist [facility] ABO Rh A Positive Ursula, indirect Negative [facility] Blood 12/31/2024 2:22 AM SPACE SCHEDULER 12/31/2024 2:54 AM SPACE SCHEDULER Narrative [facility] - 12/31/2024 3:55 AM SPACE SCHEDULER Has the patient had Daratumumab or Isatuximab in the past 6 months?->Unknown Jared Davis MD LAB BLOOD BANK TEST ORDERABL ES Final Result Performing Organization Address [facility] Co de Phone Number [facility] [place] [address] * Uric acid (12/31/2024 2:22 AM SPACE SCHEDULER) Pathologist [facility] Uric acid 4.1 3.0 - 8.0 mg/dL Blood 12/31/2024 2:22 AM SPACE SCHEDULER 12/31/2024 2:39 AM SPACE SCHEDULER Narrative [facility] - 12/31/2024 3:23 AM SPACE SCHEDULER Saturday and only. Morning draw. . Jared Davis MD LAB BLOOD ORDERABLES Final R esult Performing Organization Address [facility] Co de Phone Number [facility] [place] [address] * TSH (12/31/2024 2:22 AM SPACE SCHEDULER) [facility] Thyroid Stimulating Hormone 0.91 0.30 - 4.20 mcIUnit/mL Blood 12/31/2024 2:22 AM SPACE SCHEDULER 12/31/2024 2:39 AM SPACE SCHEDULER Brody Park MD LAB BLOOD ORDERABLES Final R esult Performing Organization Address [facility] Co de Phone Number [facility] [place] [address] * Phosphorus (12/31/2024 2:22 AM SPACE SCHEDULER) Phosphorus, pl 3.1 2.3 - 4.5 mg/dL Blood 12/31/2024 2:22 AM SPACE SCHEDULER 12/31/2024 2:39 AM SPACE SCHEDULER us Jared Davis MD LAB BLOOD ORDERABLES Final R esult Performing Organization Address [facility] de Phone Number [facility] [place] [address] * Magnesium (12/31/2024 2:22 AM SPACE SCHEDULER) Magnesium 1.7 1.4 - 2.5 mg/dL Blood 12/31/2024 2:22 AM SPACE SCHEDULER 12/31/2024 2:39 AM SPACE SCHEDULER Jared Davis MD LAB BLOOD ORDERABLES Final R esult Performing Organization Address [facility] de Phone Number [facility] [place] [address] * Lactate dehydrogenase (LD) (12/31/2024 2:22 AM SPACE SCHEDULER) Lactate dehydrogenase (LDH) 199 100 - 250 Units/L Blood 12/31/2024 2:22 AM SPACE SCHEDULER 12/31/2024 2:39 AM SPACE SCHEDULER Narrative [facility] - 12/31/2024 3:23 AM SPACE SCHEDULER Saturday and only. Morning draw. us Jared Davis MD LAB BLOOD ORDERABLES Final R esult Performing Organization Address [facility] Co de Phone Number [facility] [place] [address] * Bilirubin, direct (12/31/2024 2:22 AM SPACE SCHEDULER) Bilirubin, direct <0.2 0.1 - 0.3 mg/dL Blood 12/31/2024 2:22 AM SPACE SCHEDULER 12/31/2024 2:39 AM SPACE SCHEDULER us Jared Davis MD LAB BLOOD ORDERABLES Final R esult Performing Organization Address [facility]/ZIP Co de Phone Number [facility] [address] [place] [address] * (ABNORMAL) Comprehensive metabolic panel (12/31/2024 2:22 AM SPACE SCHEDULER) Sodium 138 135 - 145 mmol/L Potassium, pl 4.6 3.3 - 4.9 mmol/L [facility] Chloride 97 97 - 110 mmol/L [facility] CO2 33(H) 22 - 32 mmol/L [facility] Anion gap 8 2 - 15 mmol/L [facility] BUN 15 6 - 25 mg/dL [facility] Creatinine 0.90 0.80 - 1.30 mg/dL [facility] Glucose 133 70 - 199 mg/dL [facility] Comment: Interpretive Data Fasting glucose [...] 2022. Calcium 8.9 8.5 - 10.3 mg/dL [facility] Bilirubin, total 0.3 0.1 - 1.2 mg/dL [facility] Protein, pl 6.5 6.5 - 8.5 g/dL [facility] Albumin 2.9(L) 3.5 - 5.0 g/dL [facility] Alk phos 159(H) 40 - 130 Units/L [facility] ALT 63(H) 7 - 55 Units/L [facility] AST 31 10 - 50 Units/L [facility] Blood 12/31/2024 2:22 AM SPACE SCHEDULER 12/31/2024 2:39 AM SPACE SCHEDULER Narrative [facility] - 12/31/2024 3:23 AM SPACE SCHEDULER Saturday and only. Morning draw. Jared Davis MD LAB BLOOD ORDERABLES Final R esult Performing Organization Address [facility] Co de Phone Number [facility] [email or web address] [address] * (ABNORMAL) POCT glucose (12/30/2024 7:57 PM SPACE SCHEDULER) Glucose, POC 219(H) 70 - 199 mg/dL Blood 12/30/2024 7:57 PM SPACE SCHEDULER 12/30/2024 7:57 PM SPACE SCHEDULER Brody Park MD LAB POCT ORDERABLES - DEVICE Final Result Performing Organization Address [facility] Co de Phone Number [facility] [email or web address] [address] * POCT glucose (12/30/2024 5:37 PM SPACE SCHEDULER) Glucose, POC 115 70 - 199 mg/dL Blood 12/30/2024 5:37 PM SPACE SCHEDULER 12/30/2024 5:37 PM SPACE SCHEDULER Brody Park MD LAB POCT ORDERABLES - DEVICE Final Result Performing Organization Address [facility] Co de Phone Number [facility] [email or web address] [address] * POCT glucose (12/30/2024 11:25 AM SPACE SCHEDULER) Glucose, POC 77 70 - 199 mg/dL Blood 12/30/2024 11:2 5 AM SPACE SCHEDULER 12/30/2024 11:25 AM SPACE SCHEDULER Brody Park MD LAB POCT ORDERABLES - DEVICE Final Result Performing Organization Address [facility] Co de Phone Number [facility] [email or web address] [address] * POCT glucose (12/30/2024 7:37 AM SPACE SCHEDULER) [facility] Glucose, POC 155 70 - 199 mg/dL Blood 12/30/2024 7:37 AM SPACE SCHEDULER 12/30/2024 7:37 AM SPACE SCHEDULER us Brody Park MD LAB POCT ORDERABLES - DEVICE Final Result Performing Organization Address [facility] Co de Phone Number [facility] [place] [address] * eGFR (12/30/2024 2:27 AM SPACE SCHEDULER) [facility] eGFR >90 >=60 mL/min/1. 73 m2 Comment: [...] last reviewed 2021. Blood 12/30/2024 2:27 AM SPACE SCHEDULER 12/30/2024 2:49 AM SPACE SCHEDULER us Jared Davis MD LAB BLOOD ORDERABLES Final R esult Performing Organization Address City/[facility]/ZIP Co de Phone Number [facility] [place] [address] * (ABNORMAL) Manual Differential (12/30/2024 2:27 AM SPACE SCHEDULER) [facility] Differential Manual Cells Counted 116 [facility] Neutrophil abs 2.7 1.5 - 6.5 K/cumm [facility] Imm gran abs 0.0 0.0 - 0.1 K/cumm [facility] Lymphocyte abs 1.9 0.8 - 3.3 K/cumm [facility] Monocyte abs 0.7 0.2 - 0.8 K/cumm [facility] Eosinophil abs 0.2 0.0 - 0.5 K/cumm [facility] Basophil abs 0.1 0.0 - 0.1 K/cumm [facility] Neutrophil pct 47.5 % [facility] Comment: Interpretive Data Percent cell count reference ranges are not reported, since discordance with absolute values may lead to misinterpretation of CBC data. Current Interpretive Data was last revised on 2018. Lymphocyte pct 34.5 % [facility] Comment: Interpretive Data Percent cell count reference ranges are not reported, since discordance with absolute values may lead to misinterpretation of CBC data. Current Interpretive Data was last revised on 2018. Monocyte pct 12.9 % [facility] Comment: Interpretive Data Percent cell count reference ranges are not reported, since discordance with absolute values may lead to misinterpretation of CBC data. Current Interpretive Data was last revised on 2018. Eosinophil pct 3.4 % [facility] Comment: Interpretive Data Percent cell count reference ranges are not reported, since discordance with absolute values may lead to misinterpretation of CBC data. Current Interpretive Data was last revised on 2018. Basophil pct 1.7 % [facility] Comment: Interpretive Data Percent cell count reference ranges are not reported, since discordance with absolute values may lead to misinterpretation of CBC data. Current Interpretive Data was last revised on 2018. RBC morphology Present(A) [facility] Anisocytosis Marked(A) [facility] Macrocytes > 15/HPF(A) [facility] Platelet estimate Adequate [facility] Blood 12/30/2024 2:27 AM SPACE SCHEDULER 12/30/2024 2:49 AM SPACE SCHEDULER Jared Davis MD LAB BLOOD ORDERABLES Edited Result - Final [facility] [place] [address] * (ABNORMAL) CBC without differential (12/30/2024 2:27 AM SPACE SCHEDULER) [facility] WBC 5.6 3.8 - 9.9 K/cumm Hgb 10.1(L) 13.0 - 17.5 g/dL [facility] Hct 30.3(L) 38.9 - 50.3 % [facility] Plt 233 150 - 400 K/cumm [facility] MPV 10.9 9.1 - 12.3 fL [facility] RBC 3.11(L) 4.30 - 5.80 M/cumm [facility] MCV 97.4(H) 81.3 - 96.4 fL [facility] MCH 32.5 27.1 - 33.3 pg [facility] MCHC 33.3 32.3 - 35.7 g/dL [facility] RDW CV 17.8(H) 11.1 - 14.9 % [facility] RDW SD 61.6(H) 35.7 - 48.1 fL [facility] NRBC abs 0.02(H) 0.00 - 0.01 K/cumm [facility] Blood 12/30/2024 2:27 AM SPACE SCHEDULER 12/30/2024 2:49 AM SPACE SCHEDULER us Jared Davis MD LAB BLOOD ORDERABLES Final R esult Performing Organization Address City/[facility] Co de Phone Number [facility] [place] [address] * Phosphorus (12/30/2024 2:27 AM SPACE SCHEDULER) [facility] Phosphorus, pl 3.9 2.3 - 4.5 mg/dL Blood 12/30/2024 2:27 AM SPACE SCHEDULER 12/30/2024 2:49 AM SPACE SCHEDULER us Jared Davis MD LAB BLOOD ORDERABLES Final R esult [facility] [place] [address] * Magnesium (12/30/2024 2:27 AM SPACE SCHEDULER) Pathologist [facility] Magnesium 2.4 1.4 - 2.5 mg/dL Blood 12/30/2024 2:27 AM SPACE SCHEDULER 12/30/2024 2:49 AM SPACE SCHEDULER us Jared Davis MD LAB BLOOD ORDERABLES Final R esult Performing Organization Address [facility] Co de Phone Number [facility] [place] [address] * (ABNORMAL) Hepatic function panel (12/30/2024 2:27 AM SPACE SCHEDULER) [facility] Bilirubin, total 0.3 0.1 - 1.2 mg/dL Bilirubin, direct <0.2 0.1 - 0.3 mg/dL [facility] Protein, pl 6.5 6.5 - 8.5 g/dL [facility] Albumin 2.9(L) 3.5 - 5.0 g/dL [facility] Alk phos 154(H) 40 - 130 Units/L [facility] ALT 74(H) 7 - 55 Units/L [facility] AST 26 10 - 50 Units/L [facility] Blood 12/30/2024 2:27 AM SPACE SCHEDULER 12/30/2024 2:49 AM SPACE SCHEDULER Kay La MD LAB BLOOD ORDERABLES Pilar l Result Performing Organization Address City/[facility]/ZIP Co de Phone Number [facility] [place] [address] * (ABNORMAL) Basic metabolic panel (12/30/2024 2:27 AM SPACE SCHEDULER) Pathologist [facility] Sodium 136 135 - 145 mmol/L Potassium, pl 4.1 3.3 - 4.9 mmol/L [facility] Chloride 96(L) 97 - 110 mmol/L [facility] CO2 34(H) 22 - 32 mmol/L [facility] Anion gap 6 2 - 15 mmol/L [facility] BUN 19 6 - 25 mg/dL [facility] Creatinine 0.89 0.80 - 1.30 mg/dL [facility] Glucose 199 70 - 199 mg/dL [facility] Comment: Interpretive Data Fasting glucose [...] 2022. Calcium 8.8 8.5 - 10.3 mg/dL [facility] Blood 12/30/2024 2:27 AM SPACE SCHEDULER 12/30/2024 2:49 AM SPACE SCHEDULER Narrative [facility] - 12/30/2024 3:19 AM SPACE SCHEDULER Daily except Saturday and . Morning draw. us Jared Davis MD LAB BLOOD ORDERABLES Final R esult Performing Organization Address City/[facility]/ZIP Co de Phone Number [facility] [place] [address] * POCT glucose (12/29/2024 8:28 PM SPACE SCHEDULER) Pathologist [facility] Glucose, POC 111 70 - 199 mg/dL Blood 12/29/2024 8:28 PM SPACE SCHEDULER 12/29/2024 8:28 PM SPACE SCHEDULER us Brody Park MD LAB POCT ORDERABLES - DEVICE Final Result Performing Organization Address City/[facility]/ZIP Co de Phone Number [facility] [place] [address] * POCT glucose (12/29/2024 8:07 PM SPACE SCHEDULER) Glucose, POC 114 70 - 199 mg/dL Blood 12/29/2024 8:07 PM SPACE SCHEDULER 12/29/2024 8:07 PM SPACE SCHEDULER Brody Park MD LAB POCT ORDERABLES - DEVICE Final Result [facility] [place] [address] * POCT glucose (12/29/2024 4:53 PM SPACE SCHEDULER) Glucose, POC 132 70 - 199 mg/dL Blood 12/29/2024 4:53 PM SPACE SCHEDULER 12/29/2024 4:53 PM SPACE SCHEDULER Brody Park MD LAB POCT ORDERABLES - DEVICE Final Result Performing Organization Address City/[facility] Co de Phone Number ZULEMA [facility] [place] [address] * eGFR (12/29/2024 3:10 PM SPACE SCHEDULER) eGFR >90 >=60 mL/min/1. 73 m2 Comment: [...] last reviewed 2021. Blood 12/29/2024 3:10 PM SPACE SCHEDULER 12/29/2024 3:29 PM SPACE SCHEDULER us Lalo Perez MD LAB BLOOD ORDERABLES Final Resu lt [facility] [address] [place] [address] * (ABNORMAL) Basic metabolic panel (12/29/2024 3:10 PM SPACE SCHEDULER) Sodium 137 135 - 145 mmol/L Potassium, pl 4.3 3.3 - 4.9 mmol/L [facility] Comment:Hemolyzed; Potassium value may be falsely elevated by as much as 0.6-1.0 mmol/L. Suggest redraw and reanalysis. Chloride 95(L) 97 - 110 mmol/L [facility] CO2 36(H) 22 - 32 mmol/L [facility] Anion gap 6 2 - 15 mmol/L [facility] BUN 16 6 - 25 mg/dL [facility] Creatinine 0.78(L) 0.80 - 1.30 mg/dL [facility] Glucose 122 70 - 199 mg/dL [facility] Comment: Interpretive Data Fasting glucose [...] 2022. Calcium 9.2 8.5 - 10.3 mg/dL [facility] Blood 12/29/2024 3:10 PM SPACE SCHEDULER 12/29/2024 3:29 PM SPACE SCHEDULER us Lalo Perez MD LAB BLOOD ORDERABLES Final Resu lt Performing Organization Address City/[facility] Co de Phone Number [facility] Department [place] [address] * POCT glucose (12/29/2024 12:18 PM SPACE SCHEDULER) Glucose, POC 134 70 - 199 mg/dL Blood 12/29/2024 12:1 8 PM SPACE SCHEDULER 12/29/2024 12:18 PM SPACE SCHEDULER us Brody Park MD LAB POCT ORDERABLES - DEVICE Final Result Performing Organization Address [facility] Co de Phone Number [facility] Department [place] [address] * POCT glucose (12/29/2024 7:39 AM SPACE SCHEDULER) Glucose, POC 145 70 - 199 mg/dL Blood 12/29/2024 7:39 AM SPACE SCHEDULER 12/29/2024 7:39 AM SPACE SCHEDULER us Brody Park MD LAB POCT ORDERABLES - DEVICE Final Result Performing Organization Address [facility] Co de Phone Number [facility] Department [place] [address] * eGFR (12/29/2024 12:27 AM SPACE SCHEDULER) eGFR >90 >=60 mL/min/1. 73 m2 Comment: [...] reviewed 2021. Blood 12/29/2024 12:2 7 AM SPACE SCHEDULER 12/29/2024 12:40 AM SPACE SCHEDULER us Jared Davis MD LAB BLOOD ORDERABLES Final R esult [facility] [address] [place] [address] * (ABNORMAL) Manual Differential (12/29/2024 12:27 AM SPACE SCHEDULER) Differential Manual Cells Counted 120 [facility] Neutrophil abs 4.6 1.5 - 6.5 K/cumm [facility] Imm gran abs 0.0 0.0 - 0.1 K/cumm [facility] Lymphocyte abs 2.7 0.8 - 3.3 K/cumm [facility] Monocyte abs 0.4 0.2 - 0.8 K/cumm [facility] Eosinophil abs 0.2 0.0 - 0.5 K/cumm [facility] Neutrophil pct 58.3 % [facility] Comment: Interpretive Data Percent cell count reference ranges are not reported, since discordance with absolute values may lead to misinterpretation of CBC data. Current Interpretive Data was last revised on 2018. Lymphocyte pct 34.2 % [facility] Comment: Interpretive Data Percent cell count reference ranges are not reported, since discordance with absolute values may lead to misinterpretation of CBC data. Current Interpretive Data was last revised on 2018. Monocyte pct 5.0 % [facility] Comment: Interpretive Data Percent cell count reference ranges are not reported, since discordance with absolute values may lead to misinterpretation of CBC data. Current Interpretive Data was last revised on 2018. Eosinophil pct 2.5 % [facility] Comment: Interpretive Data Percent cell count reference ranges are not reported, since discordance with absolute values may lead to misinterpretation of CBC data. Current Interpretive Data was last revised on 2018. RBC morphology Present(A) [facility] Anisocytosis Moderate(A) [facility] Macrocytes 8-15/HPF(A) [facility] Platelet estimate Adequate [facility] Blood 12/29/2024 12:2 7 AM SPACE SCHEDULER 12/29/2024 12:40 AM SPACE SCHEDULER us Jared Davis MD LAB BLOOD ORDERABLES Final R esult [facility] [address] [place] [address] * (ABNORMAL) CBC without differential (12/29/2024 12:27 AM SPACE SCHEDULER) WBC 7.9 3.8 - 9.9 K/cumm Hgb 11.2(L) 13.0 - 17.5 g/dL [facility] Hct 33.8(L) 38.9 - 50.3 % [facility] Plt 225 150 - 400 K/cumm [facility] MPV 11.1 9.1 - 12.3 fL [facility] RBC 3.45(L) 4.30 - 5.80 M/cumm [facility] MCV 98.0(H) 81.3 - 96.4 fL [facility] MCH 32.5 27.1 - 33.3 pg [facility] MCHC 33.1 32.3 - 35.7 g/dL [facility] RDW CV 18.0(H) 11.1 - 14.9 % [facility] RDW SD 62.6(H) 35.7 - 48.1 fL [facility] NRBC abs 0.05(H) 0.00 - 0.01 K/cumm [facility] Blood 12/29/2024 12:2 7 AM SPACE SCHEDULER 12/29/2024 12:40 AM SPACE SCHEDULER us Jared J. Atkins MD LAB BLOOD ORDERABLES Final R esult Performing Organization Address City/[facility] Co de [place] [address] * Phosphorus (12/29/2024 12:27 AM SPACE SCHEDULER) Phosphorus, pl 3.5 2.3 - 4.5 mg/dL Blood 12/29/2024 12:2 7 AM SPACE SCHEDULER 12/29/2024 12:40 AM SPACE SCHEDULER Jared Davis MD LAB BLOOD ORDERABLES Final R esult Performing Organization Address [facility] Co de [place] [address] * Magnesium (12/29/2024 12:27 AM SPACE SCHEDULER) Pathologist [facility] Magnesium 1.5 1.4 - 2.5 mg/dL Blood 12/29/2024 12:2 7 AM SPACE SCHEDULER 12/29/2024 12:40 AM SPACE SCHEDULER Jared Davis MD LAB BLOOD ORDERABLES Final R esult Performing Organization Address [facility] Co de Phone Number [facility] [place] [address] * (ABNORMAL) Hepatic function panel (12/29/2024 12:27 AM SPACE SCHEDULER) Bilirubin, total 0.3 0.1 - 1.2 mg/dL Bilirubin, direct <0.2 0.1 - 0.3 mg/dL [facility] Comment:Repeated and Verifie d Protein, pl 6.9 6.5 - 8.5 g/dL [facility] Albumin 3.0(L) 3.5 - 5.0 g/dL [facility] Alk phos 164(H) 40 - 130 Units/L [facility] ALT 105(H) 7 - 55 Units/L [facility] AST 46 10 - 50 Units/L [facility] Blood 12/29/2024 12:2 7 AM SPACE SCHEDULER 12/29/2024 12:40 AM SPACE SCHEDULER Kay La MD LAB BLOOD ORDERABLES Pilar l Result [facility] [address] [place] [address] * (ABNORMAL) Basic metabolic panel (12/29/2024 12:27 AM SPACE SCHEDULER) Sodium 134(L) 135 - 145 mmol/L Potassium, pl 5.0(H) 3.3 - 4.9 mmol/L [facility] Chloride 91(L) 97 - 110 mmol/L [facility] CO2 38(H) 22 - 32 mmol/L [facility] Anion gap 5 2 - 15 mmol/L [facility] BUN 17 6 - 25 mg/dL [facility] Creatinine 0.84 0.80 - 1.30 mg/dL [facility] Glucose 163 70 - 199 mg/dL [facility] Comment: Interpretive Data Fasting glucose [...] 2022. Calcium 9.2 8.5 - 10.3 mg/dL [facility] Blood 12/29/2024 12:2 7 AM SPACE SCHEDULER 12/29/2024 12:40 AM SPACE SCHEDULER Narrative [facility] - 12/29/2024 1:25 AM SPACE SCHEDULER Daily except Saturday and . Morning draw. Jared Davis MD LAB BLOOD ORDERABLES Final R esult Performing Organization Address City/[facility]/ZIP Co de Phone Number [facility] [place] [address] * POCT glucose (12/28/2024 7:58 PM SPACE SCHEDULER) Glucose, POC 177 70 - 199 mg/dL Blood 12/28/2024 7:58 PM SPACE SCHEDULER 12/28/2024 7:58 PM SPACE SCHEDULER us Brody Park MD LAB POCT ORDERABLES - DEVICE Final Result Performing Organization Address [facility] Co de Phone Number [facility] [place] [address] * POCT glucose (12/28/2024 5:19 PM SPACE SCHEDULER) Glucose, POC 89 70 - 199 mg/dL Blood 12/28/2024 5:19 PM SPACE SCHEDULER 12/28/2024 5:19 PM SPACE SCHEDULER us Brody Park MD LAB POCT ORDERABLES - DEVICE Final Result Performing Organization Address [facility] Co de Phone Number [facility] Department [place] [address] * POCT glucose (12/28/2024 12:24 PM SPACE SCHEDULER) Glucose, POC 99 70 - 199 mg/dL Blood 12/28/2024 12:2 4 PM SPACE SCHEDULER 12/28/2024 12:24 PM SPACE SCHEDULER us Brody Park MD LAB POCT ORDERABLES - DEVICE Final Result Performing Organization Address [facility] Co de Phone Number [facility] Department [place] [address] * POCT glucose (12/28/2024 7:47 AM SPACE SCHEDULER) [facility] Glucose, POC 112 70 - 199 mg/dL Blood 12/28/2024 7:47 AM SPACE SCHEDULER 12/28/2024 7:47 AM SPACE SCHEDULER Brody Park MD LAB POCT ORDERABLES - DEVICE Final Result Performing Organization Address [facility] Co de Phone Number ZULEMA [email or web address] [address] * eGFR (12/28/2024 1:52 AM SPACE SCHEDULER) [facility] eGFR >90 >=60 mL/min/1. 73 m2 Comment: [...] last reviewed 2021. Blood 12/28/2024 1:52 AM SPACE SCHEDULER 12/28/2024 2:21 AM SPACE SCHEDULER us Jared Davis MD LAB BLOOD ORDERABLES Final R esult Performing Organization Address [facility]/ZIP Co de Phone Number [facility] [email or web address] [address] * (ABNORMAL) Manual Differential (12/28/2024 1:52 AM SPACE SCHEDULER) [facility] Differential Manual Cells Counted 115 [facility] Neutrophil abs 4.7 1.5 - 6.5 K/cumm [facility] Imm gran abs 0.0 0.0 - 0.1 K/cumm [facility] Lymphocyte abs 3.0 0.8 - 3.3 K/cumm [facility] Monocyte abs 1.2(H) 0.2 - 0.8 K/cumm [facility] Eosinophil abs 0.1 0.0 - 0.5 K/cumm [facility] Neutrophil pct 52.2 % [facility] Comment: Interpretive Data Percent cell count reference ranges are not reported, since discordance with absolute values may lead to misinterpretation of CBC data. Current Interpretive Data was last revised on 2018. Lymphocyte pct 33.9 % [facility] Comment: Interpretive Data Percent cell count reference ranges are not reported, since discordance with absolute values may lead to misinterpretation of CBC data. Current Interpretive Data was last revised on 2018. Monocyte pct 13.0 % [facility] Comment: Interpretive Data Percent cell count reference ranges are not reported, since discordance with absolute values may lead to misinterpretation of CBC data. Current Interpretive Data was last revised on 2018. Eosinophil pct 0.9 % [facility] Comment: Interpretive Data Percent cell count reference ranges are not reported, since discordance with absolute values may lead to misinterpretation of CBC data. Current Interpretive Data was last revised on 2018. RBC morphology Normal [facility] Platelet estimate Adequate [facility] Blood 12/28/2024 1:52 AM SPACE SCHEDULER 12/28/2024 2:21 AM SPACE SCHEDULER us Jared Davis MD LAB BLOOD ORDERABLES Edited Result - Final [facility] [address] [place] [address] * aPTT (12/28/2024 1:52 AM SPACE SCHEDULER) aPTT 36 28 - 38 sec Comment: Interpretive Data Heparin therapeutic range: 66.0 - 100.0 seconds. Range based on correlation with therapeutic heparin activity range of 0.3 - 0.7 Units/mL. Current interpretive data was last revised on 2023. Blood 12/28/2024 1:52 AM SPACE SCHEDULER 12/28/2024 2:44 AM SPACE SCHEDULER Jared Davis MD LAB BLOOD ORDERABLES [facility] Performing Organization Address [facility] de [place] [address] * Protime-INR (12/28/2024 1:52 AM SPACE SCHEDULER) Pathologist [facility] PT 11.4 9.7 - 13.0 sec INR 1.05 0.90 - 1.20 [facility] Comment: Interpretive data Oral anticoagulant therapeutic ranges: Venous thromboembolism prophylaxis or treatment: 2.0-3.0 CARDIOLOGY Standard range: 2.0-3.0 High-intensity range: 2.5-3.5 Refer to indication-specific guidelines for appropriate target ranges for prosthetic heart valve replacement. Current interpretive data was last revised on 2019. Blood 12/28/2024 1:52 AM SPACE SCHEDULER 12/28/2024 2:44 AM SPACE SCHEDULER Jared Davis MD LAB BLOOD ORDERABLES Final R esult Performing Organization Address [facility] de [place] [address] * (ABNORMAL) CBC without differential (12/28/2024 1:52 AM SPACE SCHEDULER) Pathologist [facility] WBC 9.0 3.8 - 9.9 K/cumm Hgb 10.7(L) 13.0 - 17.5 g/dL [facility] Hct 32.0(L) 38.9 - 50.3 % [facility] Plt 242 150 - 400 K/cumm [facility] MPV 11.0 9.1 - 12.3 fL [facility] RBC 3.28(L) 4.30 - 5.80 M/cumm [facility] MCV 97.6(H) 81.3 - 96.4 fL [facility] MCH 32.6 27.1 - 33.3 pg [facility] MCHC 33.4 32.3 - 35.7 g/dL [facility] RDW CV 18.0(H) 11.1 - 14.9 % [facility] RDW SD 62.2(H) 35.7 - 48.1 fL [facility] NRBC abs 0.06(H) 0.00 - 0.01 K/cumm [facility] Blood 12/28/2024 1:52 AM SPACE SCHEDULER 12/28/2024 2:21 AM SPACE SCHEDULER Jared Davis MD LAB BLOOD ORDERABLES Final R esult Performing Organization Address City/[facility]/ZIP Co de Phone Number [facility] [email or web address] [address] * Type and screen (12/28/2024 1:52 AM SPACE SCHEDULER) ABO Rh A Positive Ursula, indirect Negative [facility] Blood 12/28/2024 1:52 AM SPACE SCHEDULER 12/28/2024 2:14 AM SPACE SCHEDULER Narrative [facility] - 12/28/2024 3:17 AM SPACE SCHEDULER Has the patient had Daratumumab or Isatuximab in the past 6 months?->Unknown Jared Davis MD LAB BLOOD BANK TEST ORDERABL ES Final Result [facility] [email or web address] [address] * (ABNORMAL) Uric acid (12/28/2024 1:52 AM SPACE SCHEDULER) Uric acid 2.5(L) 3.0 - 8.0 mg/dL Blood 12/28/2024 1:52 AM SPACE SCHEDULER 12/28/2024 2:21 AM SPACE SCHEDULER Narrative [facility] - 12/28/2024 2:54 AM SPACE SCHEDULER Saturday and only. Morning draw. . us Jared Davis MD LAB BLOOD ORDERABLES Final R esult Performing Organization Address [facility] de Phone Number [facility] [place] [address] * Phosphorus (12/28/2024 1:52 AM SPACE SCHEDULER) Phosphorus, pl 3.0 2.3 - 4.5 mg/dL Blood 12/28/2024 1:52 AM SPACE SCHEDULER 12/28/2024 2:21 AM SPACE SCHEDULER us Jared Davis MD LAB BLOOD ORDERABLES Final R esult Performing Organization Address [facility] de [place] [address] * Magnesium (12/28/2024 1:52 AM SPACE SCHEDULER) Magnesium 1.8 1.4 - 2.5 mg/dL Blood 12/28/2024 1:52 AM SPACE SCHEDULER 12/28/2024 2:21 AM SPACE SCHEDULER us Jared Davis MD LAB BLOOD ORDERABLES Final R esult Performing Organization Address [facility] de Phone Number [facility] [place] [address] * (ABNORMAL) Lactate dehydrogenase (LD) (12/28/2024 1:52 AM SPACE SCHEDULER) Lactate dehydrogenase (LDH) 304(H) 100 - 250 Units/L Blood 12/28/2024 1:52 AM SPACE SCHEDULER 12/28/2024 2:21 AM SPACE SCHEDULER Narrative [facility] - 12/28/2024 3:57 AM SPACE SCHEDULER Saturday and only. Morning draw. us Jared Davis MD LAB BLOOD ORDERABLES Final R esult Performing Organization Address City/[facility]/ZIP Co de Phone Number ZULEMA DENT [facility] [address] [email or web address] [address] * Bilirubin, direct (12/28/2024 1:52 AM SPACE SCHEDULER) Pathologist [facility] Bilirubin, direct 0.2 0.1 - 0.3 mg/dL Comment:Reviewed Blood 12/28/2024 1:52 AM SPACE SCHEDULER 12/28/2024 2:21 AM SPACE SCHEDULER Jared Davis MD LAB BLOOD ORDERABLES Final R [facility] Performing Organization Address [facility] Co de Phone Number [facility] [place] [address] * (ABNORMAL) Comprehensive metabolic panel (12/28/2024 1:52 AM SPACE SCHEDULER) [facility] Sodium 139 135 - 145 mmol/L Potassium, pl 4.8 3.3 - 4.9 mmol/L [facility] Chloride 96(L) 97 - 110 mmol/L [facility] CO2 39(H) 22 - 32 mmol/L [facility] Anion gap 4 2 - 15 mmol/L [facility] BUN 13 6 - 25 mg/dL [facility] Creatinine 0.72(L) 0.80 - 1.30 mg/dL [facility] Glucose 101 70 - 199 mg/dL [facility] Comment: Interpretive Data Fasting glucose [...] 2022. Calcium 9.4 8.5 - 10.3 mg/dL [facility] Bilirubin, total 0.4 0.1 - 1.2 mg/dL [facility] Protein, pl 7.0 6.5 - 8.5 g/dL [facility] Albumin 3.1(L) 3.5 - 5.0 g/dL [facility] Alk phos 159(H) 40 - 130 Units/L [facility] ALT 128(H) 7 - 55 Units/L [facility] AST 63(H) 10 - 50 Units/L [facility] Blood 12/28/2024 1:52 AM SPACE SCHEDULER 12/28/2024 2:21 AM SPACE SCHEDULER Narrative [facility] - 12/28/2024 2:54 AM SPACE SCHEDULER Saturday and only. Morning draw. us Jared Davis MD LAB BLOOD ORDERABLES Final R esult Performing Organization Address [facility] Co de Phone Number [facility] [place] [address] * POCT glucose (12/27/2024 9:14 PM SPACE SCHEDULER) Glucose, POC 138 70 - 199 mg/dL Comment:Glu2: RN/MD Notified Glucose comment 1 Glu2: RN/MD Notified [facility] Blood 12/27/2024 9:14 PM SPACE SCHEDULER 12/27/2024 9:14 PM SPACE SCHEDULER us Brody Park MD LAB POCT ORDERABLES - DEVICE Final Result Performing Organization Address City/[facility]/ZIP Co de Phone Number [facility] [place] [address] * POCT glucose (12/27/2024 4:57 PM SPACE SCHEDULER) Glucose, POC 154 70 - 199 mg/dL Blood 12/27/2024 4:57 PM SPACE SCHEDULER 12/27/2024 4:57 PM SPACE SCHEDULER us Brody Park MD LAB POCT ORDERABLES - DEVICE Final Result Performing Organization Address [facility] de Phone Number [facility] [email or web address] [address] * (ABNORMAL) POCT glucose (12/27/2024 12:15 PM SPACE SCHEDULER) Glucose, POC 204(H) 70 - 199 mg/dL Comment:Glu2: RN/MD Notified Glucose comment 1 Glu2: RN/MD Notified [facility] Blood 12/27/2024 12:1 5 PM SPACE SCHEDULER 12/27/2024 12:15 PM SPACE SCHEDULER Brody Park MD LAB POCT ORDERABLES - DEVICE Final Result Performing Organization Address [facility] Co de Phone Number [facility] [email or web address] [address] * POCT glucose (12/27/2024 7:41 AM SPACE SCHEDULER) [facility] Glucose, POC 126 70 - 199 mg/dL Blood 12/27/2024 7:41 AM SPACE SCHEDULER 12/27/2024 7:41 AM SPACE SCHEDULER us Brody Park MD LAB POCT ORDERABLES - DEVICE Final Result Performing Organization Address [facility] de Phone Number [facility] [email or web address] [address] * eGFR (12/27/2024 2:02 AM SPACE SCHEDULER) eGFR >90 >=60 mL/min/1. 73 m2 Comment: [...] last reviewed 2021. Blood 12/27/2024 2:02 AM SPACE SCHEDULER 12/27/2024 2:44 AM SPACE SCHEDULER us Jared Davis MD LAB BLOOD ORDERABLES Final R esult [facility] [address] [place] [address] * (ABNORMAL) Manual Differential (12/27/2024 2:02 AM SPACE SCHEDULER) Differential Manual Cells Counted 114 [facility] Neutrophil abs 5.8 1.5 - 6.5 K/cumm [facility] Imm gran abs 0.0 0.0 - 0.1 K/cumm [facility] Lymphocyte abs 1.7 0.8 - 3.3 K/cumm [facility] Monocyte abs 1.1(H) 0.2 - 0.8 K/cumm [facility] Eosinophil abs 0.3 0.0 - 0.5 K/cumm [facility] Neutrophil pct 64.9 % [facility] Comment: Interpretive Data Percent cell count reference ranges are not reported, since discordance with absolute values may lead to misinterpretation of CBC data. Current Interpretive Data was last revised on 2018. Lymphocyte pct 19.3 % [facility] Comment: Interpretive Data Percent cell count reference ranges are not reported, since discordance with absolute values may lead to misinterpretation of CBC data. Current Interpretive Data was last revised on 2018. Monocyte pct 12.3 % [facility] Comment: Interpretive Data Percent cell count reference ranges are not reported, since discordance with absolute values may lead to misinterpretation of CBC data. Current Interpretive Data was last revised on 2018. Eosinophil pct 3.5 % [facility] Comment: Interpretive Data Percent cell count reference ranges are not reported, since discordance with absolute values may lead to misinterpretation of CBC data. Current Interpretive Data was last revised on 2018. RBC morphology Present(A) [facility] Anisocytosis Marked(A) [facility] Macrocytes > 15/HPF(A) [facility] Platelet estimate Adequate [facility] Blood 12/27/2024 2:02 AM SPACE SCHEDULER 12/27/2024 2:44 AM SPACE SCHEDULER us Jared Davis MD LAB BLOOD ORDERABLES Edited Result - Final [facility] [address] [place] [address] * (ABNORMAL) CBC without differential (12/27/2024 2:02 AM SPACE SCHEDULER) WBC 9.0 3.8 - 9.9 K/cumm Hgb 9.7(L) 13.0 - 17.5 g/dL [facility] Hct 29.7(L) 38.9 - 50.3 % [facility] Plt 218 150 - 400 K/cumm [facility] MPV 10.8 9.1 - 12.3 fL [facility] RBC 3.00(L) 4.30 - 5.80 M/cumm [facility] MCV 99.0(H) 81.3 - 96.4 fL [facility] MCH 32.3 27.1 - 33.3 pg [facility] MCHC 32.7 32.3 - 35.7 g/dL [facility] RDW CV 18.2(H) 11.1 - 14.9 % [facility] RDW SD 64.7(H) 35.7 - 48.1 fL [facility] NRBC abs 0.05(H) 0.00 - 0.01 K/cumm [facility] Blood 12/27/2024 2:02 AM SPACE SCHEDULER 12/27/2024 2:44 AM SPACE SCHEDULER us Jared Davis MD LAB BLOOD ORDERABLES Final R esult Performing Organization Address [facility] Co de Phone Number [email or web address] [address] * (ABNORMAL) Phosphorus (12/27/2024 2:02 AM SPACE SCHEDULER) Phosphorus, pl 2.2(L) 2.3 - 4.5 mg/dL Blood 12/27/2024 2:02 AM SPACE SCHEDULER 12/27/2024 2:44 AM SPACE SCHEDULER Jared Davis MD LAB BLOOD ORDERABLES Final R esult Performing Organization Address [facility] de Phone Number [facility] [place] [address] * (ABNORMAL) Magnesium (12/27/2024 2:02 AM SPACE SCHEDULER) Pathologist [facility] Magnesium 1.3(L) 1.4 - 2.5 mg/dL Blood 12/27/2024 2:02 AM SPACE SCHEDULER 12/27/2024 2:44 AM SPACE SCHEDULER Jared Davis MD LAB BLOOD ORDERABLES [facility] Performing Organization Address [facility] Co de Phone Number [facility] [email or web address] [address] * (ABNORMAL) Hepatic function panel (12/27/2024 2:02 AM SPACE SCHEDULER) Bilirubin, total 0.3 0.1 - 1.2 mg/dL Bilirubin, direct <0.2 0.1 - 0.3 mg/dL [facility] Protein, pl 6.0(L) 6.5 - 8.5 g/dL [facility] Albumin 2.6(L) 3.5 - 5.0 g/dL [facility] Alk phos 135(H) 40 - 130 Units/L [facility] ALT 123(H) 7 - 55 Units/L [facility] AST 34 10 - 50 Units/L [facility] Blood 12/27/2024 2:02 AM SPACE SCHEDULER 12/27/2024 2:44 AM SPACE SCHEDULER Kay La MD LAB BLOOD ORDERABLES Pilar l Result [facility] [address] [place] [address] * (ABNORMAL) Basic metabolic panel (12/27/2024 2:02 AM SPACE SCHEDULER) Pathologist [facility] Sodium 137 135 - 145 mmol/L Potassium, pl 4.1 3.3 - 4.9 mmol/L [facility] Chloride 96(L) 97 - 110 mmol/L [facility] CO2 38(H) 22 - 32 mmol/L [facility] Anion gap 3 2 - 15 mmol/L [facility] BUN 8 6 - 25 mg/dL [facility] Creatinine 0.64(L) 0.80 - 1.30 mg/dL [facility] Glucose 187 70 - 199 mg/dL [facility] Comment: Interpretive Data Fasting glucose [...] 2022. Calcium 8.7 8.5 - 10.3 mg/dL [facility] Blood 12/27/2024 2:02 AM SPACE SCHEDULER 12/27/2024 2:44 AM SPACE SCHEDULER Narrative [facility] - 12/27/2024 3:11 AM SPACE SCHEDULER Daily except Saturday and . Morning draw. us Jared Davis MD LAB BLOOD ORDERABLES Final R esult Performing Organization Address [facility] Co de Phone Number [facility] [email or web address] [address] * POCT glucose (12/26/2024 8:23 PM SPACE SCHEDULER) Glucose, POC 168 70 - 199 mg/dL Blood 12/26/2024 8:23 PM SPACE SCHEDULER 12/26/2024 8:23 PM SPACE SCHEDULER Brody Park MD LAB POCT ORDERABLES - DEVICE Final Result Performing Organization Address [facility] de Phone Number [facility] [place] [address] * POCT glucose (12/26/2024 5:08 PM SPACE SCHEDULER) Glucose, POC 151 70 - 199 mg/dL Blood 12/26/2024 5:08 PM SPACE SCHEDULER 12/26/2024 5:08 PM SPACE SCHEDULER Brody Park MD LAB POCT ORDERABLES - DEVICE Final Result Performing Organization Address [facility] de Phone Number [facility] [email or web address] [address] * POCT glucose (12/26/2024 12:17 PM SPACE SCHEDULER) Glucose, POC 132 70 - 199 mg/dL Blood 12/26/2024 12:1 7 PM SPACE SCHEDULER 12/26/2024 12:17 PM SPACE SCHEDULER us Brody Park MD LAB POCT ORDERABLES - DEVICE Final Result Performing Organization Address [facility] Co de Phone Number [facility] [place] [address] * (ABNORMAL) POCT glucose (12/26/2024 7:40 AM SPACE SCHEDULER) [facility] Glucose, POC 206(H) 70 - 199 mg/dL Comment:Glu2: RN/MD Notified Glucose comment 1 Glu2: RN/MD [facility]ified [facility] Blood 12/26/2024 7:40 AM SPACE SCHEDULER 12/26/2024 7:40 AM SPACE SCHEDULER us Brody Park MD LAB POCT ORDERABLES - DEVICE Final Result Performing Organization Address City/[facility]/ZIP Co de Phone Number [facility] Department [place] [address] * Sepsis Lactate w/ Reflex (12/26/2024 2:56 AM SPACE SCHEDULER) [facility] Sepsis Lactate 1.0 0.7 - 2.0 mmol/L Blood 12/26/2024 2:56 AM SPACE SCHEDULER 12/26/2024 3:09 AM SPACE SCHEDULER Narrative [facility] - 12/26/2024 3:17 AM SPACE SCHEDULER Obtain Lactate w/ reflex STAT. Lactate result [...] Performing Organization Address City/[facility]/ZIP Co de Phone Number [facility] Department [place] [address] * Blood culture Blood Peripheral (12/26/2024 2:56 AM SPACE SCHEDULER) [facility] Report Final Report: No growth Blood (Peripheral) 12/26/2024 2:56 AM SPACE SCHEDULER 12/26/2024 3:20 AM SPACE SCHEDULER Narrative [facility] - 12/30/2024 7:01 AM SPACE SCHEDULER Collection->Peripheral 1. Blood cultures are incubated for [...] performance characteristics have been verified by the [facility]. For questions about this culture, contact the Microbiology Laboratory at [phone]. Interpretive data was last revised on 24. Jared Davis MD LAB MICROBIOLOGY - GENERAL O RDERABLES Final Result [facility] [address] [place] [address] * eGFR (12/26/2024 1:49 AM SPACE SCHEDULER) eGFR >90 >=60 mL/min/1. 73 m2 Comment: [...] last reviewed 2021. Blood 12/26/2024 1:49 AM SPACE SCHEDULER 12/26/2024 2:09 AM SPACE SCHEDULER Jared Davis MD LAB BLOOD ORDERABLES Final R esult [facility] [address] [place] [address] * (ABNORMAL) Manual Differential (12/26/2024 1:49 AM SPACE SCHEDULER) Differential Manual Cells Counted 119 [facility] Neutrophil abs 2.4 1.5 - 6.5 K/cumm [facility] Imm gran abs 0.0 0.0 - 0.1 K/cumm [facility] Lymphocyte abs 3.1 0.8 - 3.3 K/cumm [facility] Monocyte abs 1.5(H) 0.2 - 0.8 K/cumm [facility] Basophil abs 0.1 0.0 - 0.1 K/cumm [facility] Neutrophil pct 34.5 % [facility] Comment: Interpretive Data Percent cell count reference ranges are not reported, since discordance with absolute values may lead to misinterpretation of CBC data. Current Interpretive Data was last revised on 2018. Lymphocyte pct 43.7 % [facility] Comment: Interpretive Data Percent cell count reference ranges are not reported, since discordance with absolute values may lead to misinterpretation of CBC data. Current Interpretive Data was last revised on 2018. Monocyte pct 21.0 % [facility] Comment: Interpretive Data Percent cell count reference ranges are not reported, since discordance with absolute values may lead to misinterpretation of CBC data. Current Interpretive Data was last revised on 2018. Basophil pct 0.8 % [facility] Comment: Interpretive Data Percent cell count reference ranges are not reported, since discordance with absolute values may lead to misinterpretation of CBC data. Current Interpretive Data was last revised on 2018. RBC morphology Present(A) [facility] Anisocytosis Marked(A) [facility] Macrocytes > 15/HPF(A) [facility] Platelet estimate Adequate [facility] Blood 12/26/2024 1:49 AM SPACE SCHEDULER 12/26/2024 2:09 AM SPACE SCHEDULER Jared Davis MD LAB BLOOD ORDERABLES Edited Result - Final Performing Organization Address City/[facility] Co de Phone Number [facility] Department [place] [address] * (ABNORMAL) CBC without differential (12/26/2024 1:49 AM SPACE SCHEDULER) WBC 7.1 3.8 - 9.9 K/cumm Hgb 10.5(L) 13.0 - 17.5 g/dL [facility] Hct 30.9(L) 38.9 - 50.3 % [facility] Plt 221 150 - 400 K/cumm [facility] MPV 10.4 9.1 - 12.3 fL [facility] RBC 3.26(L) 4.30 - 5.80 M/cumm [facility] MCV 94.8 81.3 - 96.4 fL [facility] Comment:MCV delta due to mauro arent blood transfusion. MCH 32.2 27.1 - 33.3 pg [facility] MCHC 34.0 32.3 - 35.7 g/dL [facility] RDW CV 18.6(H) 11.1 - 14.9 % [facility] RDW SD 63.9(H) 35.7 - 48.1 fL [facility] NRBC abs 0.04(H) 0.00 - 0.01 K/cumm [facility] Blood 12/26/2024 1:49 AM SPACE SCHEDULER 12/26/2024 2:09 AM SPACE SCHEDULER Jared Davis MD LAB BLOOD ORDERABLES Final R esult Performing Organization Address City/[facility]/ZIP Co de Phone Number [facility] [place] [address] * Phosphorus (12/26/2024 1:49 AM SPACE SCHEDULER) Phosphorus, pl 2.5 2.3 - 4.5 mg/dL Blood 12/26/2024 1:49 AM SPACE SCHEDULER 12/26/2024 2:09 AM SPACE SCHEDULER Jared Davis MD LAB BLOOD ORDERABLES Final R esult Performing Organization Address [facility] Co de Phone [place] [address] * Magnesium (12/26/2024 1:49 AM SPACE SCHEDULER) Magnesium 2.1 1.4 - 2.5 mg/dL Blood 12/26/2024 1:49 AM SPACE SCHEDULER 12/26/2024 2:09 AM SPACE SCHEDULER Jared Davis MD LAB BLOOD ORDERABLES Final R esult Performing Organization Address [facility] de Phone Number [facility] [place] [address] * (ABNORMAL) Hepatic function panel (12/26/2024 1:49 AM SPACE SCHEDULER) Bilirubin, total 0.3 0.1 - 1.2 mg/dL Bilirubin, direct <0.2 0.1 - 0.3 mg/dL [facility] Protein, pl 6.3(L) 6.5 - 8.5 g/dL [facility] Albumin 2.7(L) 3.5 - 5.0 g/dL [facility] Alk phos 142(H) 40 - 130 Units/L [facility] ALT 154(H) 7 - 55 Units/L [facility] AST 32 10 - 50 Units/L [facility] Blood 12/26/2024 1:49 AM SPACE SCHEDULER 12/26/2024 2:09 AM SPACE SCHEDULER Kay La MD LAB BLOOD ORDERABLES Pilar l Result Performing Organization Address City/[facility]/ZIP Co de Phone Number [facility] Department [place] [address] * (ABNORMAL) Basic metabolic panel (12/26/2024 1:49 AM SPACE SCHEDULER) Sodium 142 135 - 145 mmol/L Potassium, pl 3.5 3.3 - 4.9 mmol/L [facility] Chloride 99 97 - 110 mmol/L [facility] CO2 38(H) 22 - 32 mmol/L [facility] Anion gap 5 2 - 15 mmol/L [facility] BUN 8 6 - 25 mg/dL [facility] Creatinine 0.63(L) 0.80 - 1.30 mg/dL [facility] Glucose 114 70 - 199 mg/dL [facility] Comment: Interpretive Data Fasting glucose [...] 2022. Calcium 8.8 8.5 - 10.3 mg/dL [facility] Blood 12/26/2024 1:49 AM SPACE SCHEDULER 12/26/2024 2:09 AM SPACE SCHEDULER Narrative [facility] - 12/26/2024 2:39 AM SPACE SCHEDULER Daily except Saturday and . Morning draw. Jared Davis MD LAB BLOOD ORDERABLES Final R esult Performing Organization Address [facility]/ZIP Co de Phone Number [facility] Department [place] [address] * POCT glucose (12/25/2024 8:38 PM SPACE SCHEDULER) Glucose, POC 170 70 - 199 mg/dL Blood 12/25/2024 8:38 PM SPACE SCHEDULER 12/25/2024 8:38 PM SPACE SCHEDULER Brody Park MD LAB POCT ORDERABLES - DEVICE Final Result Performing Organization Address [facility] de Phone Number [facility] [email or web address] [address] * Transfuse RBC (12/25/2024 6:02 PM SPACE SCHEDULER) Blood Brina Gandara MD BLOOD TRANSFUSION ORDERABLES Fin al Result Performing Organization Address [facility] de Phone Number [facility] [email or web address] [address] * POCT glucose (12/25/2024 4:56 PM SPACE SCHEDULER) [facility] Glucose, POC 181 70 - 199 mg/dL Blood 12/25/2024 4:56 PM SPACE SCHEDULER 12/25/2024 4:56 PM SPACE SCHEDULER Brody Park MD LAB POCT ORDERABLES - DEVICE Final Result Performing Organization Address [facility] de Phone Number [facility] [email or web address] [address] * (ABNORMAL) CBC without differential (12/25/2024 2:40 PM SPACE SCHEDULER) [facility] WBC 9.7 3.8 - 9.9 K/cumm Hgb 8.2(L) 13.0 - 17.5 g/dL [facility] Hct 24.6(L) 38.9 - 50.3 % [facility] Plt 214 150 - 400 K/cumm [facility] MPV 10.7 9.1 - 12.3 fL [facility] RBC 2.42(L) 4.30 - 5.80 M/cumm [facility] MCV 101.7(H) 81.3 - 96.4 fL [facility] MCH 33.9(H) 27.1 - 33.3 pg [facility] MCHC 33.3 32.3 - 35.7 g/dL [facility] RDW CV 14.4 11.1 - 14.9 % [facility] RDW SD 54.1(H) 35.7 - 48.1 fL [facility] NRBC abs 0.05(H) 0.00 - 0.01 K/cumm [facility] Blood 12/25/2024 2:40 PM SPACE SCHEDULER 12/25/2024 3:24 PM SPACE SCHEDULER Braden Suazo MD LAB BLOOD ORDERABLES Fi nal Result Performing Organization Address City/[facility]/ZIP Co de Phone Number [facility] [email or web address] [address] * Type and screen (12/25/2024 12:31 PM SPACE SCHEDULER) Ursula, indirect Negative ABO Rh A Positive [facility] Blood 12/25/2024 12:3 1 PM SPACE SCHEDULER 12/25/2024 1:05 PM SPACE SCHEDULER Narrative [facility] - 12/25/2024 1:50 PM SPACE SCHEDULER Has the patient had Daratumumab or Isatuximab in the past 6 months?->Unknown Braden Suazo MD LAB BLOOD BANK TEST ORD ERABLES Final Result [facility] [email or web address] [address] * POCT glucose (12/25/2024 12:06 PM SPACE SCHEDULER) Glucose, POC 85 70 - 199 mg/dL Blood 12/25/2024 12:0 6 PM SPACE SCHEDULER 12/25/2024 12:06 PM SPACE SCHEDULER Brody Park MD LAB POCT ORDERABLES - DEVICE Final Result Performing Organization Address [facility] Co de Phone Number [facility] Department [place] [address] * Prepare RBC: 1 Units (12/25/2024 11:42 AM SPACE SCHEDULER) Product code [id number] Unit Number [id number] [facility] Product Blood Type APOS [facility] Dispense Status PRESUMED TRANSFUSED [facility] Blood Venous blood specimen / Unknown 12/25/2024 11:42 AM SPACE SCHEDULER 12/25/2024 11:41 AM SPACE SCHEDULER Narrative [facility] - 12/26/2024 6:01 AM SPACE SCHEDULER Are special requirements needed? (All products are leukoreduced and CMV- safe)- >Yes Date required:-[id number] Special Req 1:-Irradiated LRRBC # of [id number] Reasons:-BMT, Hgb <8 g/dL} Brina Gandara MD BLOOD BANK PRODUCT ORDERABLES Fi nal Result Performing Organization Address [facility] Co de Phone Number [facility] [place] [address] * CT Chest Abdomen Pelvis W Contrast (12/25/2024 10:16 AM SPACE SCHEDULER) Anatomical Region Laterality Modality Body N/A Computed Tomogra phy 12/25/2024 10:4 0 AM SPACE SCHEDULER Impressions 12/25/2024 10:40 AM SPACE SCHEDULER 1. Unchanged moderate esophagitis of the mid [...] Dominique Richmond M.D. Narrative 12/25/2024 10:40 AM SPACE SCHEDULER EXAMINATION: CT CHEST ABDOMEN PELVIS W CONTRAST [...] status post stem cell transplant in 2008 and currently on maintenance.. TECHNIQUE: Transaxial computed [...] urinalysis. Electronically signed by: Dominique Richmond M.D. [facility] Larry Suazo MD IM CT PROCEDURES Final Result * (ABNORMAL) Aerobic culture and gram stain Sputum Sputum (12/25/2024 10:13 AM SPACE SCHEDULER) Direct Specimen Exam Stain: Few polymorphonuclear leukocytes seen. Few squamous epithelial cells seen. Abundant mixed bacterial oscar seen on Gram stain. Report Final Report: Abundant Klebsiella pneumoniae For susceptibility results, refer to accession number [id number] on the Sputum culture from 12-23-2024 Plus growth of clinically insignificant bacterial oscar. (.) [facility] Organism KLEBSIELLA PNEUMONIAE [facility] Organism PLUS GROWTH OF CLINICALLY INSIGNIFICANT OSCAR. [facility] Sputum (Sputum) 12/25/2024 1 0:13 AM SPACE SCHEDULER 12/25/2024 12:17 PM SPACE SCHEDULER Narrative [facility] - 12/27/2024 10:10 AM SPACE SCHEDULER Testing performed by [facility] ([phone]) Specimens submitted from normally sterile body sites [...] - GENE RAL ORDERABLES Final Result [facility] [address] [place] [address] * XR Chest 1 View (12/25/2024 8:53 AM SPACE SCHEDULER) Anatomical Region Laterality Modality Body, Chest N/A Computed Radiogr aphy 12/25/2024 9:42 AM SPACE SCHEDULER Impressions 12/25/2024 10:06 AM SPACE SCHEDULER FINDINGS/IMPRESSION: Again noted is opacity at the [...] Olivera MD, PHD Narrative 12/25/2024 10:06 AM SPACE SCHEDULER EXAMINATION: XR CHEST 1 VIEW HISTORY: pna [...] Result * POCT glucose (12/25/2024 7:46 AM SPACE SCHEDULER) Glucose, POC 84 70 - 199 mg/dL Blood 12/25/2024 7:46 AM SPACE SCHEDULER 12/25/2024 7:46 AM SPACE SCHEDULER us Brody Park MD LAB POCT ORDERABLES - DEVICE Final Result [facility] [address] [place] [address] * eGFR (12/25/2024 2:29 AM SPACE SCHEDULER) eGFR >90 >=60 mL/min/1. 73 m2 Comment: [...] last reviewed 2021. Blood 12/25/2024 2:29 AM SPACE SCHEDULER 12/25/2024 2:44 AM SPACE SCHEDULER us Jared Davis MD LAB BLOOD ORDERABLES Final R esult [facility] [address] [place] [address] * (ABNORMAL) Manual Differential (12/25/2024 2:29 AM SPACE SCHEDULER) Differential Manual Cells Counted [address] [facility] Neutrophil abs 4.5 1.5 - 6.5 K/cumm [facility] Imm gran abs 0.0 0.0 - 0.1 K/cumm [facility] Lymphocyte abs 2.9 0.8 - 3.3 K/cumm [facility] Monocyte abs 0.6 0.2 - 0.8 K/cumm [facility] Eosinophil abs 0.2 0.0 - 0.5 K/cumm [facility] Basophil abs 0.1 0.0 - 0.1 K/cumm [facility] Neutrophil pct 53.8 % [facility] Comment: Interpretive Data Percent cell count reference ranges are not reported, since discordance with absolute values may lead to misinterpretation of CBC data. Current Interpretive Data was last revised on 2018. Lymphocyte pct 34.2 % [facility] Comment: Interpretive Data Percent cell count reference ranges are not reported, since discordance with absolute values may lead to misinterpretation of CBC data. Current Interpretive Data was last revised on 2018. Monocyte pct 7.7 % [facility] Comment: Interpretive Data Percent cell count reference ranges are not reported, since discordance with absolute values may lead to misinterpretation of CBC data. Current Interpretive Data was last revised on 2018. Eosinophil pct 2.6 % [facility] Comment: Interpretive Data Percent cell count reference ranges are not reported, since discordance with absolute values may lead to misinterpretation of CBC data. Current Interpretive Data was last revised on 2018. Basophil pct 1.7 % [facility] Comment: Interpretive Data Percent cell count reference ranges are not reported, since discordance with absolute values may lead to misinterpretation of CBC data. Current Interpretive Data was last revised on 2018. RBC morphology Present(A) [facility] Anisocytosis Marked(A) [facility] Macrocytes > 15/HPF(A) [facility] Platelet estimate Adequate [facility] Blood 12/25/2024 2:29 AM SPACE SCHEDULER 12/25/2024 2:44 AM SPACE SCHEDULER Jared Davis MD LAB BLOOD ORDERABLES Edited Result - Final Performing Organization Address [facility] de Phone Number [facility] [place] [address] * (ABNORMAL) CBC without differential (12/25/2024 2:29 AM SPACE SCHEDULER) WBC 8.4 3.8 - 9.9 K/cumm Hgb 8.4(L) 13.0 - 17.5 g/dL [facility] Hct 25.1(L) 38.9 - 50.3 % [facility] Plt 208 150 - 400 K/cumm [facility] MPV 10.8 9.1 - 12.3 fL [facility] RBC 2.47(L) 4.30 - 5.80 M/cumm [facility] MCV 101.6(H) 81.3 - 96.4 fL [facility] MCH 34.0(H) 27.1 - 33.3 pg [facility] MCHC 33.5 32.3 - 35.7 g/dL [facility] RDW CV 14.6 11.1 - 14.9 % [facility] RDW SD 54.4(H) 35.7 - 48.1 fL [facility] NRBC abs 0.03(H) 0.00 - 0.01 K/cumm [facility] Blood 12/25/2024 2:29 AM SPACE SCHEDULER 12/25/2024 2:44 AM SPACE SCHEDULER Jared Davis MD LAB BLOOD ORDERABLES Final R esult Performing Organization Address City/[facility]/ZIP Co de Phone Number [facility] [place] [address] * (ABNORMAL) Phosphorus (12/25/2024 2:29 AM SPACE SCHEDULER) Pathologist [facility] Phosphorus, pl 2.2(L) 2.3 - 4.5 mg/dL Blood 12/25/2024 2:29 AM SPACE SCHEDULER 12/25/2024 2:44 AM SPACE SCHEDULER Jared Davis MD LAB BLOOD ORDERABLES Final R esult Performing Organization Address [facility] Co de Phone Number [facility] [place] [address] * Magnesium (12/25/2024 2:29 AM SPACE SCHEDULER) Pathologist [facility] Magnesium 1.5 1.4 - 2.5 mg/dL Blood 12/25/2024 2:29 AM SPACE SCHEDULER 12/25/2024 2:44 AM SPACE SCHEDULER Jared Davis MD LAB BLOOD ORDERABLES Final R esult Performing Organization Address [facility] de Phone Number [facility] [place] [address] * (ABNORMAL) Hepatic function panel (12/25/2024 2:29 AM SPACE SCHEDULER) [facility] Bilirubin, total 0.3 0.1 - 1.2 mg/dL Bilirubin, direct See Comment 0.1 - 0.3 mg/dL [facility] Comment:Credited; Hemolyzed Specimen Protein, pl 6.0(L) 6.5 - 8.5 g/dL [facility] Albumin 2.4(L) 3.5 - 5.0 g/dL [facility] Alk phos 132(H) 40 - 130 Units/L [facility] ALT 174(H) 7 - 55 Units/L [facility] AST 38 10 - 50 Units/L [facility] Comment:Hemolyzed; result ma y be falsely elevated Blood 12/25/2024 2:29 AM SPACE SCHEDULER 12/25/2024 2:44 AM SPACE SCHEDULER Kay La MD LAB BLOOD ORDERABLES Pilar l Result Performing Organization Address [facility]/ZIP Co de Phone Number [facility] [place] [address] * (ABNORMAL) Basic metabolic panel (12/25/2024 2:29 AM SPACE SCHEDULER) Sodium 137 135 - 145 mmol/L Potassium, pl 4.1 3.3 - 4.9 mmol/L [facility] Comment:Hemolyzed; Potassium value may be falsely elevated by as much as 0.6-1.0 mmol/L. Suggest redraw and reanalysis. Chloride 96(L) 97 - 110 mmol/L [facility] CO2 35(H) 22 - 32 mmol/L [facility] Anion gap 6 2 - 15 mmol/L [facility] BUN 8 6 - 25 mg/dL [facility] Creatinine 0.59(L) 0.80 - 1.30 mg/dL [facility] Glucose 85 70 - 199 mg/dL [facility] Comment: Interpretive Data Fasting glucose [...] 2022. Calcium 8.2(L) 8.5 - 10.3 mg/dL [facility] Blood 12/25/2024 2:29 AM SPACE SCHEDULER 12/25/2024 2:44 AM SPACE SCHEDULER Narrative [facility] - 12/25/2024 4:22 AM SPACE SCHEDULER Daily except Saturday and . Morning draw. Jared Davis MD LAB BLOOD ORDERABLES Final R esult Performing Organization Address City/[facility]/ZIP [place] [address] * (ABNORMAL) POCT glucose (12/24/2024 10:35 PM SPACE SCHEDULER) Glucose, POC 214(H) 70 - 199 mg/dL Blood 12/24/2024 10:3 5 PM SPACE SCHEDULER 12/24/2024 10:35 PM SPACE SCHEDULER us Brody Park MD LAB POCT ORDERABLES - DEVICE Final [place] [address] * POCT glucose (12/24/2024 10:09 PM SPACE SCHEDULER) Glucose, POC 78 70 - 199 mg/dL Blood 12/24/2024 10:0 9 PM SPACE SCHEDULER 12/24/2024 10:09 PM SPACE SCHEDULER us Brody Park MD LAB POCT ORDERABLES - DEVICE Final Result Performing Organization Address City/[facility]/ZIP Co de Phone Number [facility] [place] [address] * POCT glucose (12/24/2024 8:02 PM SPACE SCHEDULER) Glucose, POC 86 70 - 199 mg/dL Blood 12/24/2024 8:02 PM SPACE SCHEDULER 12/24/2024 8:02 PM SPACE SCHEDULER Brody Park MD LAB POCT ORDERABLES - DEVICE Final Result Performing Organization Address City/[facility]/ZIP Co [place] [address] * POCT glucose (12/24/2024 5:45 PM SPACE SCHEDULER) Glucose, POC 76 70 - 199 mg/dL Blood 12/24/2024 5:45 PM SPACE SCHEDULER 12/24/2024 5:45 PM SPACE SCHEDULER Brody Park MD LAB POCT ORDERABLES - DEVICE Final Result Performing Organization Address [facility] de Phone Number [facility] Department [place] [address] * (ABNORMAL) POCT glucose (12/24/2024 5:19 PM SPACE SCHEDULER) Pathologist [facility] Glucose, POC 66(L) 70 - 199 mg/dL Comment:Glu2: RN/MD Notified Glucose comment 1 Glu2: RN/MD Notified [facility] Blood 12/24/2024 5:19 PM SPACE SCHEDULER 12/24/2024 5:19 PM SPACE SCHEDULER Brody Park MD LAB POCT ORDERABLES - DEVICE Final Result Performing Organization Address [facility] Phone Number [facility] Department [place] [address] * (ABNORMAL) Protime-INR (12/24/2024 2:44 PM SPACE SCHEDULER) [facility] PT 21.9(H) 9.7 - 13.0 sec INR 2.00(H) 0.90 - 1.20 [facility] Comment: Interpretive data Oral anticoagulant therapeutic ranges: Venous thromboembolism prophylaxis or treatment: 2.0-3.0 CARDIOLOGY Standard range: 2.0-3.0 High-intensity range: 2.5-3.5 Refer to indication-specific guidelines for appropriate target ranges for prosthetic heart valve replacement. Current interpretive data was last revised on 2019. Blood 12/24/2024 2:44 PM SPACE SCHEDULER 12/24/2024 3:41 PM SPACE SCHEDULER Braden Suazo MD LAB BLOOD ORDERABLES Fi nal Result Performing Organization Address [facility] [place] [address] * POCT glucose (12/24/2024 12:10 PM SPACE SCHEDULER) Glucose, POC 73 70 - 199 mg/dL Blood 12/24/2024 12:1 0 PM SPACE SCHEDULER 12/24/2024 12:10 PM SPACE SCHEDULER us Brody Park MD LAB POCT ORDERABLES - DEVICE Final [place] [address] * POCT glucose (12/24/2024 7:45 AM SPACE SCHEDULER) [facility] Signature Glucose, POC 72 70 - 199 mg/dL Blood 12/24/2024 7:45 AM SPACE SCHEDULER 12/24/2024 7:45 AM SPACE SCHEDULER us Brody Park MD LAB POCT ORDERABLES - DEVICE Final [place] [address] * (ABNORMAL) ALT (12/24/2024 6:38 AM SPACE SCHEDULER) [facility] ALT 202(H) 7 - 55 Units/L Blood 12/24/2024 6:38 AM SPACE SCHEDULER 12/24/2024 6:48 AM SPACE SCHEDULER us Joy Osorio MD LAB BLOOD ORDERABLES F inal [place] [address] * AST (12/24/2024 6:38 AM SPACE SCHEDULER) [facility] AST 35 10 - 50 Units/L Blood 12/24/2024 6:38 AM SPACE SCHEDULER 12/24/2024 6:48 AM SPACE SCHEDULER Joy Osorio MD LAB BLOOD ORDERABLES F inal Result ZULE[facility] [place] [address] * Potassium (12/24/2024 6:38 AM SPACE SCHEDULER) Potassium, pl 3.5 3.3 - 4.9 mmol/L Blood 12/24/2024 6:38 AM SPACE SCHEDULER 12/24/2024 6:48 AM SPACE SCHEDULER Joy Osorio MD LAB BLOOD ORDERABLES F inal Result Performing Organization Address City/[facility] Co de Phone Number [facility] Department [place] [address] * eGFR (12/24/2024 2:36 AM SPACE SCHEDULER) eGFR >90 >=60 mL/min/1. 73 m2 Comment: [...] last reviewed 2021. Blood 12/24/2024 2:36 AM SPACE SCHEDULER 12/24/2024 2:59 AM SPACE SCHEDULER us Jared Davis MD LAB BLOOD ORDERABLES Final R esult [facility] [address] [place] [address] * (ABNORMAL) Manual Differential (12/24/2024 2:36 AM SPACE SCHEDULER) Differential Manual Cells Counted 117 [facility] Neutrophil abs 3.2 1.5 - 6.5 K/cumm [facility] Imm gran abs 0.0 0.0 - 0.1 K/cumm [facility] Lymphocyte abs 6.2(H) 0.8 - 3.3 K/cumm [facility] Monocyte abs 0.7 0.2 - 0.8 K/cumm [facility] Eosinophil abs 0.1 0.0 - 0.5 K/cumm [facility] Neutrophil pct 31.6 % [facility] Comment: Interpretive Data Percent cell count reference ranges are not reported, since discordance with absolute values may lead to misinterpretation of CBC data. Current Interpretive Data was last revised on 2018. Lymphocyte pct 60.7 % [facility] Comment: Interpretive Data Percent cell count reference ranges are not reported, since discordance with absolute values may lead to misinterpretation of CBC data. Current Interpretive Data was last revised on 2018. Monocyte pct 6.8 % [facility] Comment: Interpretive Data Percent cell count reference ranges are not reported, since discordance with absolute values may lead to misinterpretation of CBC data. Current Interpretive Data was last revised on 2018. Eosinophil pct 0.9 % [facility] Comment: Interpretive Data Percent cell count reference ranges are not reported, since discordance with absolute values may lead to misinterpretation of CBC data. Current Interpretive Data was last revised on 2018. RBC morphology Present [facility] Anisocytosis MODERATE [facility] Macrocytes 8-15/HPF(A) [facility] Platelet estimate Adequate [facility] Comment:made albumin Blood 12/24/2024 2:36 AM SPACE SCHEDULER 12/24/2024 2:59 AM SPACE SCHEDULER Jared Davis MD LAB BLOOD ORDERABLES Final R esult [facility] Department [place] [address] * (ABNORMAL) CBC without differential (12/24/2024 2:36 AM SPACE SCHEDULER) Pathologist [facility] WBC 10.3(H) 3.8 - 9.9 K/cumm Hgb 10.4(L) 13.0 - 17.5 g/dL [facility] Hct 31.4(L) 38.9 - 50.3 % [facility] Plt 225 150 - 400 K/cumm [facility] MPV 11.3 9.1 - 12.3 fL [facility] RBC 3.08(L) 4.30 - 5.80 M/cumm [facility] MCV 101.9(H) 81.3 - 96.4 fL [facility] MCH 33.8(H) 27.1 - 33.3 pg [facility] MCHC 33.1 32.3 - 35.7 g/dL [facility] RDW CV 14.7 11.1 - 14.9 % [facility] RDW SD 54.8(H) 35.7 - 48.1 fL [facility] NRBC abs 0.03(H) 0.00 - 0.01 K/cumm [facility] Blood 12/24/2024 2:36 AM SPACE SCHEDULER 12/24/2024 2:59 AM SPACE SCHEDULER Jared Davis MD LAB BLOOD ORDERABLES Final R esult [facility] [place] [address] * Uric acid (12/24/2024 2:36 AM SPACE SCHEDULER) Pathologist [facility] Uric acid 3.0 3.0 - 8.0 mg/dL Blood 12/24/2024 2:36 AM SPACE SCHEDULER 12/24/2024 2:59 AM SPACE SCHEDULER Narrative [facility] - 12/24/2024 3:37 AM SPACE SCHEDULER Saturday and only. Morning draw. . Jared Davis MD LAB BLOOD ORDERABLES Final R esult Performing Organization Address City/[facility] Co de Phone Number [facility] [email or web address] [address] * (ABNORMAL) Phosphorus (12/24/2024 2:36 AM SPACE SCHEDULER) Phosphorus, pl 2.2(L) 2.3 - 4.5 mg/dL Comment:Hemolyzed; result ma y be falsely elevated Blood 12/24/2024 2:36 AM SPACE SCHEDULER 12/24/2024 2:59 AM SPACE SCHEDULER Jared Davis MD LAB BLOOD ORDERABLES Final R esult Performing Organization Address [facility] Co de Phone Number [facility] [email or web address] [address] * (ABNORMAL) Magnesium (12/24/2024 2:36 AM SPACE SCHEDULER) Magnesium 1.3(L) 1.4 - 2.5 mg/dL Blood 12/24/2024 2:36 AM SPACE SCHEDULER 12/24/2024 2:59 AM SPACE SCHEDULER Jared Davis MD LAB BLOOD ORDERABLES Final R esult Performing Organization Address [facility] Co de Phone Number [facility] [email or web address] [address] * Lactate dehydrogenase (LD) (12/24/2024 2:36 AM SPACE SCHEDULER) Lactate dehydrogenase (LDH) See Comment 100 - 250 Units/L Comment: Credited; Hemolyzed Specimen Telephone report made to: JENNA CHOW RN on 12/24/2024 03:44:49 SPACE SCHEDULER by EW Unable to calculate exact result. Blood 12/24/2024 2:36 AM SPACE SCHEDULER 12/24/2024 2:59 AM SPACE SCHEDULER Narrative [facility] - 12/24/2024 3:45 AM SPACE SCHEDULER Saturday and only. Morning draw. Jared Davis MD LAB BLOOD ORDERABLES Final R esult Performing Organization Address City/[facility] Co de Phone Number [facility] Department [place] [address] * Bilirubin, direct (12/24/2024 2:36 AM SPACE SCHEDULER) Pathologist [facility] Bilirubin, direct See Comment 0.1 - 0.3 mg/dL Comment:Credited; Hemolyzed Specimen Blood 12/24/2024 2:36 AM SPACE SCHEDULER 12/24/2024 2:59 AM SPACE SCHEDULER Jared Davis MD LAB BLOOD ORDERABLES Final [facility] Performing Organization Address [facility] de Phone Number [facility] Department [place] [address] * (ABNORMAL) Comprehensive metabolic panel (12/24/2024 2:36 AM SPACE SCHEDULER) Sodium 137 135 - 145 mmol/L Potassium, pl See Comment 3.3 - 4.9 mmol/L [facility] Comment:Credited; Hemolyzed Specimen Chloride 98 97 - 110 mmol/L [facility] CO2 34(H) 22 - 32 mmol/L [facility] Anion gap 5 2 - 15 mmol/L [facility] BUN 6 6 - 25 mg/dL [facility] Creatinine 0.61(L) 0.80 - 1.30 mg/dL [facility] Glucose 82 70 - 199 mg/dL [facility] Comment: Interpretive Data Fasting glucose [...] 2022. Calcium 8.6 8.5 - 10.3 mg/dL [facility] Bilirubin, total 0.3 0.1 - 1.2 mg/dL [facility] Protein, pl 6.9 6.5 - 8.5 g/dL [facility] Albumin 3.0(L) 3.5 - 5.0 g/dL [facility] Alk phos 158(H) 40 - 130 Units/L [facility] Comment:Hemolyzed; result ma y be falsely decreased ALT See Comment 7 - 55 Units/L [facility] Comment:Credited; Hemolyzed Specimen AST See Comment 10 - 50 Units/L [facility] Comment:Credited; Hemolyzed Specimen Blood 12/24/2024 2:36 AM SPACE SCHEDULER 12/24/2024 2:59 AM SPACE SCHEDULER Narrative [facility] - 12/24/2024 3:37 AM SPACE SCHEDULER Saturday and only. Morning draw. Jared Davis MD LAB BLOOD ORDERABLES Final R esult [facility] [address] [place] [address] * (ABNORMAL) Aerobic culture and gram stain Sputum Sputum (12/23/2024 8:49 PM SPACE SCHEDULER) Direct Specimen Exam Stain: Abundant polymorphonuclear leukocytes seen. Few squamous epithelial cells seen. Abundant mixed bacterial oscar seen on Gram stain. Report Final Report: Moderate Klebsiella pneumoniae (.) [facility] Organism KLEBSIELLA PNEUMONIAE [facility] Sputum (Sputum) 12/23/2024 8 :49 PM SPACE SCHEDULER 12/23/2024 10:19 PM SPACE SCHEDULER Narrative [facility] - 12/27/2024 10:10 AM SPACE SCHEDULER Testing performed by [facility] ([phone]) Specimens submitted from normally sterile body sites [...] Result Performing Organization Address [facility]/ZIP Co de Phone Number [facility] Department [place] [address] * POCT glucose (12/23/2024 8:11 PM SPACE SCHEDULER) Glucose, POC 95 70 - 199 mg/dL Blood 12/23/2024 8:11 PM SPACE SCHEDULER 12/23/2024 8:11 PM SPACE SCHEDULER Brody Park MD LAB POCT ORDERABLES - DEVICE Final Result Performing Organization Address [facility] Co de Phone Number [facility] [email or web address] [address] * POCT glucose (12/23/2024 5:11 PM SPACE SCHEDULER) Glucose, POC 97 70 - 199 mg/dL Blood 12/23/2024 5:11 PM SPACE SCHEDULER 12/23/2024 5:11 PM SPACE SCHEDULER Brody Park MD LAB POCT ORDERABLES - DEVICE Final Result Performing Organization Address [facility] Co de Phone Number ZULEMA DENT [email or web address] [address] * POCT glucose (12/23/2024 12:26 PM SPACE SCHEDULER) Glucose, POC 97 70 - 199 mg/dL Blood 12/23/2024 12:2 6 PM SPACE SCHEDULER 12/23/2024 12:26 PM SPACE SCHEDULER Brody Park MD LAB POCT ORDERABLES - DEVICE Final Result Performing Organization Address [facility] de Phone Number [facility] [email or web address] [address] * eGFR (12/23/2024 9:47 AM SPACE SCHEDULER) eGFR >90 >=60 mL/min/1. 73 m2 Comment: [...] last reviewed 2021. Blood 12/23/2024 9:47 AM SPACE SCHEDULER 12/23/2024 9:57 AM SPACE SCHEDULER Braden Suazo MD LAB BLOOD ORDERABLES Fi nal Result Performing Organization Address City/[facility] de Phone Number [facility] [place] [address] * (ABNORMAL) aPTT (12/23/2024 9:47 AM SPACE SCHEDULER) aPTT 45(H) 28 - 38 sec Comment: Interpretive Data Heparin therapeutic range: 66.0 - 100.0 seconds. Range based on correlation with therapeutic heparin activity range of 0.3 - 0.7 Units/mL. Current interpretive data was last revised on 2023. Blood 12/23/2024 9:47 AM SPACE SCHEDULER 12/23/2024 10:02 AM SPACE SCHEDULER Narrative [facility] - 12/23/2024 10:25 AM SPACE SCHEDULER Baseline prior to enoxaparin initiation. Braden Suazo MD LAB BLOOD ORDERABLES Fi nal Result Performing Organization Address [facility] de Phone Number [facility] [place] [address] * (ABNORMAL) Protime-INR (12/23/2024 9:47 AM SPACE SCHEDULER) PT 19.2(H) 9.7 - 13.0 sec INR 1.76(H) 0.90 - 1.20 [facility] Comment: Interpretive data Oral anticoagulant therapeutic ranges: Venous thromboembolism prophylaxis or treatment: 2.0-3.0 CARDIOLOGY Standard range: 2.0-3.0 High-intensity range: 2.5-3.5 Refer to indication-specific guidelines for appropriate target ranges for prosthetic heart valve replacement. Current interpretive data was last revised on 2019. Blood 12/23/2024 9:47 AM SPACE SCHEDULER 12/23/2024 10:02 AM SPACE SCHEDULER Narrative ZULEMA [facility] - 12/23/2024 10:25 AM SPACE SCHEDULER Baseline prior to enoxaparin initiation. us Braden Suazo MD LAB BLOOD ORDERABLES Fi nal Result [facility] Department [place] [address] * (ABNORMAL) CBC without differential (12/23/2024 9:47 AM SPACE SCHEDULER) WBC 10.2(H) 3.8 - 9.9 K/cumm Hgb 10.5(L) 13.0 - 17.5 g/dL [facility] Hct 31.6(L) 38.9 - 50.3 % [facility] Plt 287 150 - 400 K/cumm [facility] MPV 10.7 9.1 - 12.3 fL [facility] RBC 3.14(L) 4.30 - 5.80 M/cumm [facility] MCV 100.6(H) 81.3 - 96.4 fL [facility] MCH 33.4(H) 27.1 - 33.3 pg [facility] MCHC 33.2 32.3 - 35.7 g/dL [facility] RDW CV 14.6 11.1 - 14.9 % [facility] RDW SD 53.0(H) 35.7 - 48.1 fL [facility] NRBC abs 0.03(H) 0.00 - 0.01 K/cumm [facility] Blood 12/23/2024 9:47 AM SPACE SCHEDULER 12/23/2024 9:57 AM SPACE SCHEDULER Narrative [facility] - 12/23/2024 10:05 AM SPACE SCHEDULER Baseline prior to enoxaparin initiation. us Braden Larry Suazo MD LAB BLOOD ORDERABLES Fi nal Result [facility] Department [place] [address] * (ABNORMAL) Creatinine (12/23/2024 9:47 AM SPACE SCHEDULER) Creatinine 0.66(L) 0.80 - 1.30 mg/dL Blood 12/23/2024 9:47 AM SPACE SCHEDULER 12/23/2024 9:57 AM SPACE SCHEDULER Narrative [facility] - 12/23/2024 10:28 AM SPACE SCHEDULER Baseline prior to enoxaparin initiation. us Braden Suazo MD LAB BLOOD ORDERABLES Fi nal Result Performing Organization Address [facility] Co de Phone Number [facility] [email or web address] [address] * POCT glucose (12/23/2024 7:25 AM SPACE SCHEDULER) Pathologist [facility] Glucose, POC 168 70 - 199 mg/dL Blood 12/23/2024 7:25 AM SPACE SCHEDULER 12/23/2024 7:25 AM SPACE SCHEDULER us Brody Park MD LAB POCT ORDERABLES - DEVICE Final Result Performing Organization Address [facility] [place] [address] * C. difficile testing Stool (12/23/2024 3:48 AM SPACE SCHEDULER) Pathologist [facility] Result Negative Negative Toxin Result Negative Negative [facility] C. diff result Negative, free toxin Negative, free toxin [facility] C. diff interp Negative for toxigenic Clostridioides (Clostridium) difficile. Analysis was performed using a glutamate dehydrogenase antigen detection assay combined with a C. difficile toxin detection assay. [facility] Stool 12/23/2024 3:48 AM SPACE SCHEDULER 12/23/2024 4:56 AM SPACE SCHEDULER us Braden Suazo MD LAB MICROBIOLOGY - GENE RAL ORDERABLES Final Result Performing Organization Address [facility] Co de [place] [address] * (ABNORMAL) Infection Prevention VRE Culture Stool (12/23/2024 3:47 AM SPACE SCHEDULER) Report Final Report: Enterococcus species, vancomycin resistant (.) Organism ENTEROCOCCUS SPECIES, VANCOMYCIN RESISTANT [facility] Stool 12/23/2024 3:47 AM SPACE SCHEDULER 12/23/2024 5:32 AM SPACE SCHEDULER Narrative [facility] - 12/25/2024 7:17 AM SPACE SCHEDULER Surveillance culture for Infection Prevention purposes only; results indicate colonization, not infection requiring treatment. Testing performed by [facility] ([phone]). us Brody Park MD LAB MICROBIOLOGY - GENERAL O RDERABLES Final Result Performing Organization Address [facility] Co de Phone Number [facility] Department [place] [address] * eGFR (12/23/2024 3:38 AM SPACE SCHEDULER) eGFR >90 >=60 mL/min/1. 73 m2 Comment: [...] last reviewed 2021. Blood 12/23/2024 3:38 AM SPACE SCHEDULER 12/23/2024 4:12 AM SPACE SCHEDULER us Jared Davis MD LAB BLOOD ORDERABLES Final R esult Performing Organization Address City/[facility]/ZIP Co de Phone Number [facility] Department [place] [address] * (ABNORMAL) Manual Differential (12/23/2024 3:38 AM SPACE SCHEDULER) Differential Manual Cells Counted 115 [facility] Neutrophil abs 1.0(L) 1.5 - 6.5 K/cumm [facility] Imm gran abs 0.0 0.0 - 0.1 K/cumm [facility] Lymphocyte abs 5.8(H) 0.8 - 3.3 K/cumm [facility] Monocyte abs 0.4 0.2 - 0.8 K/cumm [facility] Eosinophil abs 0.3 0.0 - 0.5 K/cumm [facility] Basophil abs 0.1 0.0 - 0.1 K/cumm [facility] Neutrophil pct 13.0 % [facility] Comment: Interpretive Data Percent cell count reference ranges are not reported, since discordance with absolute values may lead to misinterpretation of CBC data. Current Interpretive Data was last revised on 2018. Lymphocyte pct 76.6 % [facility] Comment: Interpretive Data Percent cell count reference ranges are not reported, since discordance with absolute values may lead to misinterpretation of CBC data. Current Interpretive Data was last revised on 2018. Monocyte pct 5.2 % [facility] Comment: Interpretive Data Percent cell count reference ranges are not reported, since discordance with absolute values may lead to misinterpretation of CBC data. Current Interpretive Data was last revised on 2018. Eosinophil pct 4.3 % [facility] Comment: Interpretive Data Percent cell count reference ranges are not reported, since discordance with absolute values may lead to misinterpretation of CBC data. Current Interpretive Data was last revised on 2018. Basophil pct 0.9 % [facility] Comment: Interpretive Data Percent cell count reference ranges are not reported, since discordance with absolute values may lead to misinterpretation of CBC data. Current Interpretive Data was last revised on 2018. RBC morphology Present(A) [facility] Anisocytosis Moderate(A) [facility] Macrocytes 8-15/HPF(A) [facility] Platelet estimate Adequate [facility] Blood 12/23/2024 3:38 AM SPACE SCHEDULER 12/23/2024 4:12 AM SPACE SCHEDULER Jared Davis MD LAB BLOOD ORDERABLES Edited Result - Final Performing Organization Address [facility] Co de Phone Number [facility] Department [place] [address] * (ABNORMAL) CBC without differential (12/23/2024 3:38 AM SPACE SCHEDULER) Pathologist [facility] WBC 7.6 3.8 - 9.9 K/cumm Hgb 8.0(L) 13.0 - 17.5 g/dL [facility] Hct 24.0(L) 38.9 - 50.3 % [facility] Plt 269 150 - 400 K/cumm [facility] MPV 10.7 9.1 - 12.3 fL [facility] RBC 2.36(L) 4.30 - 5.80 M/cumm [facility] MCV 101.7(H) 81.3 - 96.4 fL [facility] MCH 33.9(H) 27.1 - 33.3 pg [facility] MCHC 33.3 32.3 - 35.7 g/dL [facility] RDW CV 14.5 11.1 - 14.9 % [facility] RDW SD 53.5(H) 35.7 - 48.1 fL [facility] NRBC abs 0.03(H) 0.00 - 0.01 K/cumm [facility] Blood 12/23/2024 3:38 AM SPACE SCHEDULER 12/23/2024 4:12 AM SPACE SCHEDULER Jared Davis MD LAB BLOOD ORDERABLES Final R esult Performing Organization Address [facility]/ZIP Co de Phone Number [facility] [place] [address] * (ABNORMAL) Phosphorus (12/23/2024 3:38 AM SPACE SCHEDULER) Pathologist [facility] Phosphorus, pl 1.6(L) 2.3 - 4.5 mg/dL Blood 12/23/2024 3:38 AM SPACE SCHEDULER 12/23/2024 4:12 AM SPACE SCHEDULER Jared Davis MD LAB BLOOD ORDERABLES Final R esult Performing Organization Address City/[facility] Co de Phone Number [facility] [place] [address] * Magnesium (12/23/2024 3:38 AM SPACE SCHEDULER) Magnesium 1.5 1.4 - 2.5 mg/dL Blood 12/23/2024 3:38 AM SPACE SCHEDULER 12/23/2024 4:12 AM SPACE SCHEDULER Jared Davis MD LAB BLOOD ORDERABLES Final R esult Performing Organization Address [facility] Co de Phone Number [facility] [place] [address] * (ABNORMAL) Hepatic function panel (12/23/2024 3:38 AM SPACE SCHEDULER) Bilirubin, total 0.3 0.1 - 1.2 mg/dL Bilirubin, direct <0.2 0.1 - 0.3 mg/dL [facility] Protein, pl 5.5(L) 6.5 - 8.5 g/dL [facility] Albumin 2.5(L) 3.5 - 5.0 g/dL [facility] Alk phos 143(H) 40 - 130 Units/L [facility] ALT 271(H) 7 - 55 Units/L [facility] AST 32 10 - 50 Units/L [facility] Blood 12/23/2024 3:38 AM SPACE SCHEDULER 12/23/2024 4:12 AM SPACE SCHEDULER Kay La MD LAB BLOOD ORDERABLES Pilar l Result Performing Organization Address City/[facility] Co de Phone Number [facility] [place] [address] * (ABNORMAL) Basic metabolic panel (12/23/2024 3:38 AM SPACE SCHEDULER) Sodium 137 135 - 145 mmol/L Potassium, pl 3.4 3.3 - 4.9 mmol/L [facility] Chloride 99 97 - 110 mmol/L [facility] CO2 37(H) 22 - 32 mmol/L [facility] Anion gap 1(L) 2 - 15 mmol/L [facility] BUN 7 6 - 25 mg/dL [facility] Creatinine 0.66(L) 0.80 - 1.30 mg/dL [facility] Glucose 153 70 - 199 mg/dL [facility] Comment: Interpretive Data Fasting glucose [...] 2022. Calcium 8.1(L) 8.5 - 10.3 mg/dL [facility] Blood 12/23/2024 3:38 AM SPACE SCHEDULER 12/23/2024 4:12 AM SPACE SCHEDULER Narrative [facility] - 12/23/2024 4:40 AM SPACE SCHEDULER Daily except Saturday and . Morning draw. us Jared Davis MD LAB BLOOD ORDERABLES Final R esult [facility] [address] [place] [address] * POCT glucose (12/22/2024 8:47 PM SPACE SCHEDULER) Glucose, POC 125 70 - 199 mg/dL Blood 12/22/2024 8:47 PM SPACE SCHEDULER 12/22/2024 8:47 PM SPACE SCHEDULER us Brody Park MD LAB POCT ORDERABLES - DEVICE Final Result Performing Organization Address [facility] Co [place] [address] * POCT glucose (12/22/2024 8:18 PM SPACE SCHEDULER) Glucose, POC 145 70 - 199 mg/dL Blood 12/22/2024 8:18 PM SPACE SCHEDULER 12/22/2024 8:18 PM SPACE SCHEDULER us Brody Park MD LAB POCT ORDERABLES - DEVICE Final Result Performing Organization Address [facility] Co de [place] [address] * POCT glucose (12/22/2024 5:26 PM SPACE SCHEDULER) Glucose, POC 150 70 - 199 mg/dL Blood 12/22/2024 5:26 PM SPACE SCHEDULER 12/22/2024 5:26 PM SPACE SCHEDULER us Brody Park MD LAB POCT ORDERABLES - DEVICE Final Result Performing Organization Address [facility] Co de Phone Number [facility] [place] [address] * POCT glucose (12/22/2024 12:09 PM SPACE SCHEDULER) Glucose, POC 134 70 - 199 mg/dL Blood 12/22/2024 12:0 9 PM SPACE SCHEDULER 12/22/2024 12:09 PM SPACE SCHEDULER us Brody Park MD LAB POCT ORDERABLES - DEVICE Final Result Performing Organization Address [facility] Co de Phone Number ZULEMA [facility] [address] * POCT glucose (12/22/2024 7:54 AM SPACE SCHEDULER) Glucose, POC 110 70 - 199 mg/dL Blood 12/22/2024 7:54 AM SPACE SCHEDULER 12/22/2024 7:54 AM SPACE SCHEDULER Brody Park MD LAB POCT ORDERABLES - DEVICE Final Result Performing Organization Address [facility] de Phone Number [facility] [place] [address] * eGFR (12/22/2024 12:26 AM SPACE SCHEDULER) eGFR >90 >=60 mL/min/1. 73 m2 Comment: [...] reviewed 2021. Blood 12/22/2024 12:2 6 AM SPACE SCHEDULER 12/22/2024 12:44 AM SPACE SCHEDULER us Jared Davis MD LAB BLOOD ORDERABLES Final R esult Performing Organization Address [facility]/ZIP Co de Phone Number ZULEMA [facility] [place] [address] * (ABNORMAL) Manual Differential (12/22/2024 12:26 AM SPACE SCHEDULER) Differential Manual Cells Counted [address] [facility] Neutrophil abs 8.5(H) 1.5 - 6.5 K/cumm [facility] Imm gran abs 0.0 0.0 - 0.1 K/cumm [facility] Lymphocyte abs 1.4 0.8 - 3.3 K/cumm [facility] Monocyte abs 1.0(H) 0.2 - 0.8 K/cumm [facility] Eosinophil abs 0.1 0.0 - 0.5 K/cumm [facility] Neutrophil pct 77.4 % [facility] Comment: Interpretive Data Percent cell count reference ranges are not reported, since discordance with absolute values may lead to misinterpretation of CBC data. Current Interpretive Data was last revised on 2018. Lymphocyte pct 13.0 % [facility] Comment: Interpretive Data Percent cell count reference ranges are not reported, since discordance with absolute values may lead to misinterpretation of CBC data. Current Interpretive Data was last revised on 2018. Monocyte pct 8.7 % [facility] Comment: Interpretive Data Percent cell count reference ranges are not reported, since discordance with absolute values may lead to misinterpretation of CBC data. Current Interpretive Data was last revised on 2018. Eosinophil pct 0.9 % [facility] Comment: Interpretive Data Percent cell count reference ranges are not reported, since discordance with absolute values may lead to misinterpretation of CBC data. Current Interpretive Data was last revised on 2018. RBC morphology Present(A) [facility] Anisocytosis Marked(A) [facility] Macrocytes > 15/HPF(A) [facility] Platelet estimate Adequate [facility] Blood 12/22/2024 12:2 6 AM SPACE SCHEDULER 12/22/2024 12:44 AM SPACE SCHEDULER Jared Davis MD LAB BLOOD ORDERABLES Edited Result - Final [facility] [address] [place] [address] * (ABNORMAL) CBC without differential (12/22/2024 12:26 AM SPACE SCHEDULER) Pathologist [facility] WBC 11.0(H) 3.8 - 9.9 K/cumm Hgb 10.8(L) 13.0 - 17.5 g/dL [facility] Hct 31.5(L) 38.9 - 50.3 % [facility] Plt 281 150 - 400 K/cumm [facility] MPV 11.3 9.1 - 12.3 fL [facility] RBC 3.12(L) 4.30 - 5.80 M/cumm [facility] MCV 101.0(H) 81.3 - 96.4 fL [facility] MCH 34.6(H) 27.1 - 33.3 pg [facility] MCHC 34.3 32.3 - 35.7 g/dL [facility] RDW CV 14.0 11.1 - 14.9 % [facility] RDW SD 51.7(H) 35.7 - 48.1 fL [facility] NRBC abs 0.02(H) 0.00 - 0.01 K/cumm [facility] Blood 12/22/2024 12:2 6 AM SPACE SCHEDULER 12/22/2024 12:44 AM SPACE SCHEDULER Jared Davis MD LAB BLOOD ORDERABLES Final R esult Performing Organization Address [facility] Co de Phone Number [facility] Department [place] [address] * (ABNORMAL) Phosphorus (12/22/2024 12:26 AM SPACE SCHEDULER) [facility] Phosphorus, pl 1.9(L) 2.3 - 4.5 mg/dL Blood 12/22/2024 12:2 6 AM SPACE SCHEDULER 12/22/2024 12:44 AM SPACE SCHEDULER Jared Davis MD LAB BLOOD ORDERABLES Final R esult Performing Organization Address City/[facility] Co de Phone Number [facility] Department [place] [address] * Magnesium (12/22/2024 12:26 AM SPACE SCHEDULER) [facility] Magnesium 2.2 1.4 - 2.5 mg/dL Blood 12/22/2024 12:2 6 AM SPACE SCHEDULER 12/22/2024 12:44 AM SPACE SCHEDULER Jared Davis MD LAB BLOOD ORDERABLES Final R [place] [address] * (ABNORMAL) Hepatic function panel (12/22/2024 12:26 AM SPACE SCHEDULER) [facility] Bilirubin, total 0.4 0.1 - 1.2 mg/dL Bilirubin, direct See Comment 0.1 - 0.3 mg/dL [facility] Comment:Credited; Hemolyzed Specimen Protein, pl 6.8 6.5 - 8.5 g/dL [facility] Albumin 2.9(L) 3.5 - 5.0 g/dL [facility] Alk phos 152(H) 40 - 130 Units/L [facility] ALT 461(H) 7 - 55 Units/L [facility] AST 55(H) 10 - 50 Units/L [facility] Comment:Hemolyzed; result ma y be falsely elevated Blood 12/22/2024 12:2 6 AM SPACE SCHEDULER 12/22/2024 12:44 AM SPACE SCHEDULER us Kay La MD LAB BLOOD ORDERABLES Pilar l [place] [address] * (ABNORMAL) Basic metabolic panel (12/22/2024 12:26 AM SPACE SCHEDULER) [facility] Sodium 137 135 - 145 mmol/L Potassium, pl 4.1 3.3 - 4.9 mmol/L [facility] Comment:Hemolyzed; Potassium value may be falsely elevated by as much as 0.6-1.0 mmol/L. Suggest redraw and reanalysis. Chloride 96(L) 97 - 110 mmol/L [facility] CO2 34(H) 22 - 32 mmol/L [facility] Anion gap 7 2 - 15 mmol/L [facility] BUN 7 6 - 25 mg/dL [facility] Creatinine 0.62(L) 0.80 - 1.30 mg/dL [facility] Glucose 150 70 - 199 mg/dL [facility] Comment: Interpretive Data Fasting glucose [...] 2022. Calcium 9.0 8.5 - 10.3 mg/dL [facility] Blood 12/22/2024 12:2 6 AM SPACE SCHEDULER 12/22/2024 12:44 AM SPACE SCHEDULER Narrative [facility] - 12/22/2024 1:18 AM SPACE SCHEDULER Daily except Saturday and . Morning draw. us Jared Davis MD LAB BLOOD ORDERABLES Final R esult [facility] [address] [place] [address] * POCT glucose (12/21/2024 8:49 PM SPACE SCHEDULER) [facility] Signature Glucose, POC 172 70 - 199 mg/dL Blood 12/21/2024 8:49 PM SPACE SCHEDULER 12/21/2024 8:49 PM SPACE SCHEDULER us Brody Park MD LAB POCT ORDERABLES - DEVICE Final Result [facility] [address] Department [place] [address] * XR Chest 1 View (12/21/2024 6:50 PM SPACE SCHEDULER) Anatomical Region Laterality Modality Body, Chest N/A Computed Radiogr aphy 12/22/2024 7:08 AM SPACE SCHEDULER Impressions 12/22/2024 7:08 AM SPACE SCHEDULER The current study is compared with the [...] Raul Quezada M.D. Narrative 12/22/2024 7:08 AM SPACE SCHEDULER EXAMINATION: 1 view chest radiograph Procedure Note [...] pneumothorax Electronically signed by: Raul Quezada M.D. us Jared Davis MD IMG XR PROCEDURES Final Resu lt * POCT glucose (12/21/2024 5:47 PM SPACE SCHEDULER) Glucose, POC 146 70 - 199 mg/dL Blood 12/21/2024 5:47 PM SPACE SCHEDULER 12/21/2024 5:47 PM SPACE SCHEDULER [facility] Sebastian Park MD LAB POCT ORDERABLES - DEVICE Final Result [facility] [address] [place] [address] * Pneumonia PCR Sputum, induced (12/21/2024 11:47 AM SPACE SCHEDULER) C. pneumoniae DNA Not Detected Not Detected Legionella pneumophila DNA Not Detected Not Detected [facility] M. pneumoniae DNA Not Detected Not Detected [facility] Adenovirus DNA Not Detected Not Detected [facility] Coronavirus (229E, OC43, HKU1, NL63) RNA Not Detected Not Detected [facility] Metapneumovirus RNA Not Detected Not Detected [facility] Rhinovirus/Enterov irus RNA Not Detected Not Detected [facility] Influenza A RNA Not Detected Not Detected [facility] Influenza B RNA Not Detected Not Detected [facility] Parainfluenza virus (1-4) RNA Not Detected Not Detected [facility] RSV RNA Not Detected Not Detected [facility] Sputum, induced 12/21/2024 1 1:47 AM SPACE SCHEDULER 12/21/2024 1:26 PM SPACE SCHEDULER Narrative [facility] - 12/21/2024 3:05 PM SPACE SCHEDULER The BioFire Pneumonia Panel is a multiplexed [...] rule out infection/co-infection with other organisms. The [employer] Pneumonia Panel is FDA cleared for lower respiratory tract specimens. The performance characteristics of this assay have been determined by [facility]. Current interpretive data was last revised on 2024. Jared Davis MD LAB MICROBIOLOGY - GENERAL O RDERABLES Final Result [facility] [address] [place] [address] * Pneumonia PCR with aerobic culture and Gram stain Sputum, induced (12/21/2024 11:47 AM SPACE SCHEDULER) Direct Specimen Exam Molecular Analysis: No bacterial [...] mixed bacterial oscar seen on Gram stain. [facility] Report Final Report: Growth indicates upper respiratory oscar. [facility] Organism GROWTH INDICATES UPPER RESPIRATORY OSCAR. [facility] Sputum, induced 12/21/2024 1 1:47 AM SPACE SCHEDULER 12/21/2024 12:52 PM SPACE SCHEDULER Narrative [facility] - 12/23/2024 2:48 PM SPACE SCHEDULER When rapid molecular testing results are reported, testing completed using the [employer] Pneumonia Panel. This molecular assay detects: Acinetobacter [...] performance characteristics have been confirmed by the [facility]. The performance of the [employer] Pneumonia Panel has not been established for monitoring treatment of infection and bacterial nucleic acids may persist independent of organism viability. Jared Davis MD LAB MICROBIOLOGY - GENERAL O RDERABLES Final Result Performing Organization Address City/[facility]/ZIP Co de Phone Number [facility] Department [place] [address] * POCT glucose (12/21/2024 11:32 AM SPACE SCHEDULER) Glucose, POC 175 70 - 199 mg/dL Blood 12/21/2024 11:3 2 AM SPACE SCHEDULER 12/21/2024 11:32 AM SPACE SCHEDULER Brody Park MD LAB POCT ORDERABLES - DEVICE Final Result Performing Organization Address [facility]/ZIP Co de Phone Number [facility] Department [place] [address] * POCT glucose (12/21/2024 8:50 AM SPACE SCHEDULER) Glucose, POC 147 70 - 199 mg/dL Blood 12/21/2024 8:50 AM SPACE SCHEDULER 12/21/2024 8:50 AM SPACE SCHEDULER Brody Park MD LAB POCT ORDERABLES - DEVICE Final Result Performing Organization Address [facility] de Phone Number ZULEMA [facility] [place] [address] * eGFR (12/21/2024 2:37 AM SPACE SCHEDULER) [facility] eGFR >90 >=60 mL/min/1. 73 m2 Comment: [...] last reviewed 2021. Blood 12/21/2024 2:37 AM SPACE SCHEDULER 12/21/2024 2:55 AM SPACE SCHEDULER us Jared Davis MD LAB BLOOD ORDERABLES Final R esult Performing Organization Address [facility]/ZIP Co de Phone Number [facility] [place] [address] * (ABNORMAL) Manual Differential (12/21/2024 2:37 AM SPACE SCHEDULER) [facility] Differential Manual Cells Counted 118 [facility] Neutrophil abs 5.4 1.5 - 6.5 K/cumm [facility] Imm gran abs 0.2(H) 0.0 - 0.1 K/cumm [facility] Lymphocyte abs 2.6 0.8 - 3.3 K/cumm [facility] Monocyte abs 1.0(H) 0.2 - 0.8 K/cumm [facility] Eosinophil abs 0.4 0.0 - 0.5 K/cumm [facility] Neutrophil pct 56.8 % [facility] Comment: Interpretive Data Percent cell count reference ranges are not reported, since discordance with absolute values may lead to misinterpretation of CBC data. Current Interpretive Data was last revised on 2018. Lymphocyte pct 27.1 % [facility] Comment: Interpretive Data Percent cell count reference ranges are not reported, since discordance with absolute values may lead to misinterpretation of CBC data. Current Interpretive Data was last revised on 2018. Monocyte pct 10.2 % [facility] Comment: Interpretive Data Percent cell count reference ranges are not reported, since discordance with absolute values may lead to misinterpretation of CBC data. Current Interpretive Data was last revised on 2018. Eosinophil pct 4.2 % [facility] Comment: Interpretive Data Percent cell count reference ranges are not reported, since discordance with absolute values may lead to misinterpretation of CBC data. Current Interpretive Data was last revised on 2018. Myelocyte pct 1.7 % [facility] RBC morphology Present(A) [facility] Anisocytosis Moderate(A) [facility] Poikilocytosis Slight(A) [facility] Macrocytes 8-15/HPF(A) [facility] Platelet estimate Adequate [facility] Blood 12/21/2024 2:37 AM SPACE SCHEDULER 12/21/2024 2:55 AM SPACE SCHEDULER Jared Davis MD LAB BLOOD ORDERABLES Final R esult [facility] [address] [place] [address] * (ABNORMAL) aPTT (12/21/2024 2:37 AM SPACE SCHEDULER) aPTT 41(H) 28 - 38 sec Comment: Interpretive Data Heparin therapeutic range: 66.0 - 100.0 seconds. Range based on correlation with therapeutic heparin activity range of 0.3 - 0.7 Units/mL. Current interpretive data was last revised on 2023. Blood 12/21/2024 2:37 AM SPACE SCHEDULER 12/21/2024 3:03 AM SPACE SCHEDULER Jared Davis MD LAB BLOOD ORDERABLES Final R esult Performing Organization Address [facility] de Phone Number [facility] [place] [address] * (ABNORMAL) Protime-INR (12/21/2024 2:37 AM SPACE SCHEDULER) Pathologist [facility] PT 24.8(H) 9.7 - 13.0 sec INR 2.26(H) 0.90 - 1.20 [facility] Comment: Interpretive data Oral anticoagulant therapeutic ranges: Venous thromboembolism prophylaxis or treatment: 2.0-3.0 CARDIOLOGY Standard range: 2.0-3.0 High-intensity range: 2.5-3.5 Refer to indication-specific guidelines for appropriate target ranges for prosthetic heart valve replacement. Current interpretive data was last revised on 2019. Blood 12/21/2024 2:37 AM SPACE SCHEDULER 12/21/2024 3:03 AM SPACE SCHEDULER Jared Davis MD LAB BLOOD ORDERABLES Final R esult Performing Organization Address [facility] de Phone Number [facility] [place] [address] * (ABNORMAL) CBC without differential (12/21/2024 2:37 AM SPACE SCHEDULER) WBC 9.5 3.8 - 9.9 K/cumm Hgb 9.7(L) 13.0 - 17.5 g/dL [facility] Hct 29.6(L) 38.9 - 50.3 % [facility] Plt 277 150 - 400 K/cumm [facility] MPV 10.8 9.1 - 12.3 fL [facility] RBC 2.91(L) 4.30 - 5.80 M/cumm [facility] MCV 101.7(H) 81.3 - 96.4 fL [facility] MCH 33.3 27.1 - 33.3 pg [facility] MCHC 32.8 32.3 - 35.7 g/dL [facility] RDW CV 14.1 11.1 - 14.9 % [facility] RDW SD 53.0(H) 35.7 - 48.1 fL [facility] NRBC abs 0.03(H) 0.00 - 0.01 K/cumm [facility] Blood 12/21/2024 2:37 AM SPACE SCHEDULER 12/21/2024 2:55 AM SPACE SCHEDULER Jared Davis MD LAB BLOOD ORDERABLES Final R esult Performing Organization Address City/[facility]/ZIP Co de Phone Number [facility] [place] [address] * Type and screen (12/21/2024 2:37 AM SPACE SCHEDULER) ABO Rh A Positive Ursula, indirect Negative [facility] Blood 12/21/2024 2:37 AM SPACE SCHEDULER 12/21/2024 3:31 AM SPACE SCHEDULER Narrative [facility] - 12/21/2024 4:39 AM SPACE SCHEDULER Has the patient had Daratumumab or Isatuximab in the past 6 months?->Unknown Jared Davis MD LAB BLOOD BANK TEST ORDERABL ES Final Result [facility] [place] [address] * (ABNORMAL) Uric acid (12/21/2024 2:37 AM SPACE SCHEDULER) Uric acid 2.9(L) 3.0 - 8.0 mg/dL Blood 12/21/2024 2:37 AM SPACE SCHEDULER 12/21/2024 2:55 AM SPACE SCHEDULER Narrative [facility] - 12/21/2024 3:30 AM SPACE SCHEDULER Saturday and only. Morning draw. . Jared Davis MD LAB BLOOD ORDERABLES Final R esult Performing Organization Address [facility] de [place] [address] * (ABNORMAL) Phosphorus (12/21/2024 2:37 AM SPACE SCHEDULER) Phosphorus, pl 2.0(L) 2.3 - 4.5 mg/dL Blood 12/21/2024 2:37 AM SPACE SCHEDULER 12/21/2024 2:55 AM SPACE SCHEDULER Jared Davis MD LAB BLOOD ORDERABLES Final R esult Performing Organization Address [facility] de [place] [address] * Magnesium (12/21/2024 2:37 AM SPACE SCHEDULER) Magnesium 1.5 1.4 - 2.5 mg/dL Blood 12/21/2024 2:37 AM SPACE SCHEDULER 12/21/2024 2:55 AM SPACE SCHEDULER Jared Davis MD LAB BLOOD ORDERABLES [facility] Performing Organization Address [facility] de [place] [address] * (ABNORMAL) Lactate dehydrogenase (LD) (12/21/2024 2:37 AM SPACE SCHEDULER) Lactate dehydrogenase (LDH) 351(H) 100 - 250 Units/L Comment:Hemolyzed; result ma y be falsely elevated Blood 12/21/2024 2:37 AM SPACE SCHEDULER 12/21/2024 2:55 AM SPACE SCHEDULER Narrative [facility] - 12/21/2024 3:30 AM SPACE SCHEDULER Saturday and only. Morning draw. Jared Davis MD LAB BLOOD ORDERABLES Final R esult Performing Organization Address City/[facility] Co de Phone Number [facility] [place] [address] * Bilirubin, direct (12/21/2024 2:37 AM SPACE SCHEDULER) Pathologist [facility] Bilirubin, direct <0.2 0.1 - 0.3 mg/dL Comment:Hemolyzed; result ma y be falsely decreased Blood 12/21/2024 2:37 AM SPACE SCHEDULER 12/21/2024 2:55 AM SPACE SCHEDULER Jared Davis MD LAB BLOOD ORDERABLES Final R esult Performing Organization Address [facility] Co de Phone Number [facility] Department [place] [address] * (ABNORMAL) Comprehensive metabolic panel (12/21/2024 2:37 AM SPACE SCHEDULER) [facility] Sodium 138 135 - 145 mmol/L Potassium, pl 4.1 3.3 - 4.9 mmol/L [facility] Comment:Hemolyzed; Potassium value may be falsely elevated by as much as 0.3-0.5 mmol/L. Suggest redraw and reanalysis. Chloride 98 97 - 110 mmol/L [facility] CO2 34(H) 22 - 32 mmol/L [facility] Anion gap 6 2 - 15 mmol/L [facility] BUN 7 6 - 25 mg/dL [facility] Creatinine 0.66(L) 0.80 - 1.30 mg/dL [facility] Glucose 147 70 - 199 mg/dL [facility] Comment: Interpretive Data Fasting glucose [...] 2022. Calcium 8.7 8.5 - 10.3 mg/dL [facility] Bilirubin, total 0.3 0.1 - 1.2 mg/dL [facility] Protein, pl 6.2(L) 6.5 - 8.5 g/dL [facility] Albumin 2.6(L) 3.5 - 5.0 g/dL [facility] Alk phos 154(H) 40 - 130 Units/L [facility] ALT 549(H) 7 - 55 Units/L [facility] [facility] AST 52(H) 10 - 50 Units/L [facility] Comment:Hemolyzed; result ma y be falsely elevated Blood 12/21/2024 2:37 AM SPACE SCHEDULER 12/21/2024 2:55 AM SPACE SCHEDULER Narrative [facility] - 12/21/2024 3:30 AM SPACE SCHEDULER Saturday and only. Morning draw. us Jared Davis MD LAB BLOOD ORDERABLES Final R esult Performing Organization Address City/[facility]/ZIP Co de Phone Number [facility] [place] [address] * POCT glucose (12/20/2024 10:17 PM SPACE SCHEDULER) Glucose, POC 174 70 - 199 mg/dL Blood 12/20/2024 10:1 7 PM SPACE SCHEDULER 12/20/2024 10:17 PM SPACE SCHEDULER us Brody Park MD LAB POCT ORDERABLES - DEVICE Final Result Performing Organization Address City/[facility]/ZIP Co de Phone Number [facility] [place] [address] * POCT glucose (12/20/2024 5:02 PM SPACE SCHEDULER) Glucose, POC 163 70 - 199 mg/dL Blood 12/20/2024 5:02 PM SPACE SCHEDULER 12/20/2024 5:02 PM SPACE SCHEDULER Brody Park MD LAB POCT ORDERABLES - DEVICE Final Result Performing Organization Address [facility] de Phone Number [facility] [email or web address] [address] * POCT glucose (12/20/2024 11:47 AM SPACE SCHEDULER) [facility] Glucose, POC 157 70 - 199 mg/dL Blood 12/20/2024 11:4 7 AM SPACE SCHEDULER 12/20/2024 11:47 AM SPACE SCHEDULER Brody Park MD LAB POCT ORDERABLES - DEVICE Final Result Performing Organization Address [facility] Phone Number [facility] [email or web address] [address] * POCT glucose (12/20/2024 7:50 AM SPACE SCHEDULER) [facility] Glucose, POC 172 70 - 199 mg/dL Blood 12/20/2024 7:50 AM SPACE SCHEDULER 12/20/2024 7:50 AM SPACE SCHEDULER Brody Park MD LAB POCT ORDERABLES - DEVICE Final Result Performing Organization Address [facility] de Phone Number [facility] [email or web address] [address] * Coccidioides antibody screen w/reflex Blood (12/20/2024 12:41 AM SPACE SCHEDULER) [facility] Coccidioides ab screen, ser Reactive Negative [facility] Comment: Confirmatory testing by complement fixation and immunodiffusion has been ordered. ADDITIONAL INFORMATION This test has been modified from the warehouse representative's instructions. Its performance characteristics were determined by [facility] in a manner consistent with CLIA requirements. This test has not been cleared or approved by the U.S. Food and Drug Administration. Test Performed by: [facility] [address] [place] [address] Commodity Manager: Cayden Orellana Ph.D.; CLIA# [id number] Blood 12/20/2024 12:4 1 AM SPACE SCHEDULER 12/20/2024 1:18 AM SPACE SCHEDULER Jared Davis MD LAB MICROBIOLOGY - GENERAL O RDERABLES Final Result Performing Organization Address City/[facility]/ZIP Co de Phone Number ZULE[facility] [address] [facility] * Herpes Simplex Virus (HSV) PCR Blood (12/20/2024 12:41 AM SPACE SCHEDULER) [facility] HSV DNA Not Detected Not Detected [facility] Comment: Interpretive Data This assay [...] on 03/17/2019 Blood 12/20/2024 12:4 1 AM SPACE SCHEDULER 12/20/2024 1:40 AM SPACE SCHEDULER Jared Davis MD LAB MICROBIOLOGY - GENERAL O RDERABLES Final Result [facility] [address] [facility] * Histoplasma Antibody Blood (12/20/2024 12:41 AM SPACE SCHEDULER) [facility] Histoplasma Ab, yeast CF Negative Negative [facility] Histoplasma Ab, Immunodiffusion Negative Negative [facility] Comment: A negative complement fixation and immunodiffusion (CF/ID) result does not exclude the diagnosis of histoplasmosis. Repeat testing by CF/ID in 1-2 weeks if clinically indicated. Test Performed by: [facility] [address] [place] [address] Commodity Manager: Cayden Orellana Ph.D.; CLIA# [id number] Blood 12/20/2024 12:4 1 AM SPACE SCHEDULER 12/20/2024 1:18 AM SPACE SCHEDULER Jared Davis MD LAB MICROBIOLOGY - GENERAL O RDERADORIAN Final Result Performing Organization Address [facility] de Phone Number [facility] [email or web address] [address] [facility] * Cytomegalovirus (CMV) DNA PCR, quantitative Blood (12/20/2024 12:41 AM SPACE SCHEDULER) [facility] CMV DNA Not Detected [facility] Comment: Interpretive Data: The quantifiable range of this assay is 34 IUnits/mL to 10,000,000 IUnits/mL (1.53 log IUnits/mL to 7.0 log IUnits/mL). Testing was performed by the MICHEL 6800 CMV Test ([employer] Testing performed at [facility]. Current interpretive data was last revised on 2021. Blood 12/20/2024 12:4 1 AM SPACE SCHEDULER 12/20/2024 1:39 AM SPACE SCHEDULER Jared Davis MD LAB MICROBIOLOGY - GENERAL O MARIELLA Final Result Performing Organization Address [facility] Co de Phone [place] [address] [facility] * eGFR (12/20/2024 12:41 AM SPACE SCHEDULER) eGFR >90 >=60 mL/min/1. 73 m2 Comment: [...] reviewed 2021. Blood 12/20/2024 12:4 1 AM SPACE SCHEDULER 12/20/2024 1:18 AM SPACE SCHEDULER Jared Davis MD LAB BLOOD ORDERABLES Final R esult Performing Organization Address City/State/[facility] de Phone Number [facility] [address] [place] [address] * Blastomyces antibody, EIA, serum Blood (12/20/2024 12:41 AM SPACE SCHEDULER) Pathologist [facility] Blastomyces Antibody Negative Negative [facility] Comment: A single negative result does not exclude the diagnosis of blastomycosis. Repeat testing on a new sample in 7-14 days if clinically indicated. Test Performed by: [place] [id number] Commodity Manager: Cayden Orellana Ph.D.; CLIA# [id number] Blood 12/20/2024 12:4 1 AM SPACE SCHEDULER 12/20/2024 1:18 AM SPACE SCHEDULER Jared Davis MD LAB MICROBIOLOGY - GENERAL O RDERABLES Final Result Performing Organization Address City/State/[facility] Co de Phone Number ZULEMA [facility] [place] [address] [facility] * (ABNORMAL) Johnny-Roth virus (EBV) antibody panel Blood (12/20/2024 12:41 AM SPACE SCHEDULER) Pathologist [facility] EBV nuclear Ab Positive(A) Negative Comment:Indicates the presen ce of detectable IgG antibody to EBV Nuclear Antigen. EBV VCA IgG Positive(A) Negative [facility] Comment:Indicates the presen ce of antibody; 90% of the adult population will have been infected with EBV sometime in the past. EBV VCA IgM Negative Negative [facility] Comment:No detectable IgM an tibody to EBV-VCA. A negative result indicates no current infection with EBV. If clinical suspicion of acute EBV infection is present, testing should be repeated after one week. EBV interp Past Infection [facility] Blood 12/20/2024 12:4 1 AM SPACE SCHEDULER 12/20/2024 1:18 AM SPACE SCHEDULER Jared Davis MD LAB MICROBIOLOGY - GENERAL O RDERABLES Final Result Performing Organization Address [facility] Co de Phone Number ZULEMA [facility] [place] [address] * Coccidioides antibodies (12/20/2024 12:41 AM SPACE SCHEDULER) Coccidioides ab comp fix Negative Negative [facility] Coccidioides IgG ImmDiff Negative Negative [facility] Coccidioides IgM ImmDiff Negative Negative [facility] Comment: The EIA may be reactive prior to complement fixation and immunodiffusion (CompF/ImmDiff), or may be falsely-reactive. Repeat testing by CompF/ImmDiff in 2-3 weeks if clinically indicated. Test Performed by: [facility] [address] [place] [address] Commodity Manager: Cayden Orellana Ph.D.; CLIA# [id number] Blood 12/20/2024 12:4 1 AM SPACE SCHEDULER 12/20/2024 1:18 AM SPACE SCHEDULER Jared Davis MD LAB BLOOD ORDERABLES Final R esult Performing Organization Address [facility] Co de Phone Number [facility] [place] [address] [facility] * Aspergillus galactomannan antigen Blood (12/20/2024 12:41 AM SPACE SCHEDULER) Pathologist [facility] Aspergillus galactomannan Ag <0.500 <0.5 Index [facility] Comment: ADDITIONAL INFORMATION This is a qualitative test and the resulted index value is not indicative of disease severity. Serial testing is recommended for patients at high risk for invasive aspergillosis. This assay was performed using the FDA-cleared [employer] Aspergillus Galactomannan EIA. Test Performed by: [place] [address] Commodity Manager: Cayden Orellana Ph.D.; CLIA# [id number] Blood 12/20/2024 12:4 1 AM SPACE SCHEDULER 12/20/2024 1:17 AM SPACE SCHEDULER Jared Davis MD LAB MICROBIOLOGY - GENERAL O RDERABLES Final Result Performing Organization Address [facility] de Phone Number [facility]MA [facility] Department [place] [address] [facility] * (ABNORMAL) Manual Differential (12/20/2024 12:41 AM SPACE SCHEDULER) Pathologist [facility] Differential Manual Cells Counted 114 [facility] Neutrophil abs 5.6 1.5 - 6.5 K/cumm [facility] Imm gran abs 0.2(H) 0.0 - 0.1 K/cumm [facility] Lymphocyte abs 2.7 0.8 - 3.3 K/cumm [facility] Monocyte abs 0.8 0.2 - 0.8 K/cumm [facility] Eosinophil abs 0.2 0.0 - 0.5 K/cumm [facility] Neutrophil pct 57.9 % [facility] Comment: Interpretive Data Percent cell count reference ranges are not reported, since discordance with absolute values may lead to misinterpretation of CBC data. Current Interpretive Data was last revised on 2018. Lymphocyte pct 28.1 % [facility] Comment: Interpretive Data Percent cell count reference ranges are not reported, since discordance with absolute values may lead to misinterpretation of CBC data. Current Interpretive Data was last revised on 2018. Monocyte pct 8.8 % [facility] Comment: Interpretive Data Percent cell count reference ranges are not reported, since discordance with absolute values may lead to misinterpretation of CBC data. Current Interpretive Data was last revised on 2018. Eosinophil pct 2.6 % [facility] Comment: Interpretive Data Percent cell count reference ranges are not reported, since discordance with absolute values may lead to misinterpretation of CBC data. Current Interpretive Data was last revised on 2018. Promyelocyte pct 2.6 % [facility] RBC morphology Present(A) [facility] Anisocytosis Moderate(A) [facility] Macrocytes 8-15/HPF(A) [facility] Platelet estimate Adequate [facility] Blood 12/20/2024 12:4 1 AM SPACE SCHEDULER 12/20/2024 1:18 AM SPACE SCHEDULER Jared Davis MD LAB BLOOD ORDERABLES Edited Result - Final [facility] [address] [place] [address] * (ABNORMAL) CBC without differential (12/20/2024 12:41 AM SPACE SCHEDULER) WBC 9.6 3.8 - 9.9 K/cumm Hgb 10.9(L) 13.0 - 17.5 g/dL [facility] Hct 33.3(L) 38.9 - 50.3 % [facility] Plt 343 150 - 400 K/cumm [facility] MPV 10.9 9.1 - 12.3 fL [facility] RBC 3.26(L) 4.30 - 5.80 M/cumm [facility] MCV 102.1(H) 81.3 - 96.4 fL [facility] MCH 33.4(H) 27.1 - 33.3 pg [facility] MCHC 32.7 32.3 - 35.7 g/dL [facility] RDW CV 14.0 11.1 - 14.9 % [facility] RDW SD 52.1(H) 35.7 - 48.1 fL [facility] NRBC abs 0.06(H) 0.00 - 0.01 K/cumm [facility] Blood 12/20/2024 12:4 1 AM SPACE SCHEDULER 12/20/2024 1:18 AM SPACE SCHEDULER us Jared Davis MD LAB BLOOD ORDERABLES Final R esult Performing Organization Address City/[facility] Co de Phone Number [facility] [place] [address] * Phosphorus (12/20/2024 12:41 AM SPACE SCHEDULER) Phosphorus, pl 2.8 2.3 - 4.5 mg/dL Blood 12/20/2024 12:4 1 AM SPACE SCHEDULER 12/20/2024 1:18 AM SPACE SCHEDULER us Jared Davis MD LAB BLOOD ORDERABLES Final R esult [facility] [place] [address] * Magnesium (12/20/2024 12:41 AM SPACE SCHEDULER) Magnesium 1.8 1.4 - 2.5 mg/dL Blood 12/20/2024 12:4 1 AM SPACE SCHEDULER 12/20/2024 1:18 AM SPACE SCHEDULER us Jared Davis MD LAB BLOOD ORDERABLES Final R esult Performing Organization Address City/[facility]/ZIP Co de Phone Number [facility] [place] [address] * (ABNORMAL) Hepatic function panel (12/20/2024 12:41 AM SPACE SCHEDULER) [facility] Bilirubin, total 0.4 0.1 - 1.2 mg/dL Bilirubin, direct 0.2 0.1 - 0.3 mg/dL [facility] Protein, pl 7.0 6.5 - 8.5 g/dL [facility] Albumin 3.3(L) 3.5 - 5.0 g/dL [facility] Alk phos 176(H) 40 - 130 Units/L [facility] ALT 858(H) 7 - 55 Units/L [facility] AST 85(H) 10 - 50 Units/L [facility] Blood 12/20/2024 12:4 1 AM SPACE SCHEDULER 12/20/2024 1:18 AM SPACE SCHEDULER Kay La MD LAB BLOOD ORDERABLES Pilar l Result Performing Organization Address [facility] Co de Phone Number [facility] Department [place] [address] * (ABNORMAL) Basic metabolic panel (12/20/2024 12:41 AM SPACE SCHEDULER) [facility] Sodium 139 135 - 145 mmol/L Potassium, pl 3.7 3.3 - 4.9 mmol/L [facility] Chloride 99 97 - 110 mmol/L [facility] CO2 35(H) 22 - 32 mmol/L [facility] Anion gap 5 2 - 15 mmol/L [facility] BUN 8 6 - 25 mg/dL [facility] Creatinine 0.73(L) 0.80 - 1.30 mg/dL [facility] Glucose 228(H) 70 - 199 mg/dL [facility] Comment: Interpretive Data Fasting glucose [...] 2022. Calcium 8.7 8.5 - 10.3 mg/dL [facility] Blood 12/20/2024 12:4 1 AM SPACE SCHEDULER 12/20/2024 1:18 AM SPACE SCHEDULER [facility]ative [facility] - 12/20/2024 1:49 AM SPACE SCHEDULER Daily except Saturday and . Morning draw. Jared Davis MD LAB BLOOD ORDERABLES Final R esult Performing Organization Address City/[facility] Co de Phone Number [facility] [address] [place] [address] * Histoplasma Antigen Urine (12/19/2024 10:25 PM SPACE SCHEDULER) Histo Ag Ur result None Detected None Detected Histo Ag Ur interp Negative Negative [facility] Comment: Result Interpretation: Reference interval: None Detected Results reported as ng/mL in 0.20 - 20.00 ng/mL range Results above 20.00 ng/mL are reported as 'Positive, Above the Limit of Quantification' Testing Performed by: [facility], [address] [place] [address] [place] [address]. This test was developed and its performance characteristics determined by [facility]. It has not been cleared or approved by the FDA; however, FDA clearance or approval is not currently required for clinical use. The results are not intended to be used as the sole means for clinical diagnosis or patient management decisions. Interpretative data updated 01/16/2021 Urine 12/19/2024 10:2 5 PM SPACE SCHEDULER 12/19/2024 11:39 PM SPACE SCHEDULER Jared Davis MD LAB MICROBIOLOGY - GENERAL O RDERABLES Final Result [facility] [email or web address] [address] * POCT glucose (12/19/2024 7:55 PM SPACE SCHEDULER) Glucose, POC 121 70 - 199 mg/dL Blood 12/19/2024 7:55 PM SPACE SCHEDULER 12/19/2024 7:55 PM SPACE SCHEDULER us Brody Park MD LAB POCT ORDERABLES - DEVICE Final Result Performing Organization Address [facility] de [place] [address] * POCT glucose (12/19/2024 6:05 PM SPACE SCHEDULER) Glucose, POC 111 70 - 199 mg/dL Blood 12/19/2024 6:05 PM SPACE SCHEDULER 12/19/2024 6:05 PM SPACE SCHEDULER us Brody Park MD LAB POCT ORDERABLES - DEVICE Final Result Performing Organization Address [facility] Co de Phone Number [facility] [email or web address] [address] * (ABNORMAL) POCT glucose (12/19/2024 11:42 AM SPACE SCHEDULER) Glucose, POC 211(H) 70 - 199 mg/dL Blood 12/19/2024 11:4 2 AM SPACE SCHEDULER 12/19/2024 11:42 AM SPACE SCHEDULER Brody Park MD LAB POCT ORDERABLES - DEVICE Final Result Performing Organization Address [facility] Co de [place] [address] * CT Chest Abdomen Pelvis W Contrast (12/19/2024 9:00 AM SPACE SCHEDULER) Anatomical Region Laterality Modality Body N/A Computed Tomogra phy 12/19/2024 11:1 5 AM SPACE SCHEDULER Impressions 12/19/2024 12:43 PM SPACE SCHEDULER 1. Interval increase in the extent of [...] Michael Camacho M.D. Narrative 12/19/2024 12:43 PM SPACE SCHEDULER EXAMINATION: Computed tomography of the chest, abdomen [...] it. Electronically signed by: Michael Camacho M.D. Jared Davis MD IMG CT PROCEDURES Final Resu lt * POCT glucose (12/19/2024 7:47 AM SPACE SCHEDULER) Glucose, POC 112 70 - 199 mg/dL Blood 12/19/2024 7:47 AM SPACE SCHEDULER 12/19/2024 7:47 AM SPACE SCHEDULER us Brody Park MD LAB POCT ORDERABLES - DEVICE Final Result Performing Organization Address [facility] Co de Phone Number ZULEMA [facility] [place] [address] * eGFR (12/19/2024 4:40 AM SPACE SCHEDULER) [facility] eGFR >90 >=60 mL/min/1. 73 m2 Comment: [...] last reviewed 2021. Blood 12/19/2024 4:40 AM SPACE SCHEDULER 12/19/2024 4:51 AM SPACE SCHEDULER us Jared Davis MD LAB BLOOD ORDERABLES Final R esult Performing Organization Address City/[facility]/ZIP Co de Phone Number [facility] [place] [address] * (ABNORMAL) Manual Differential (12/19/2024 4:40 AM SPACE SCHEDULER) [facility] Differential Manual Cells Counted 117 [facility] Neutrophil abs 6.0 1.5 - 6.5 K/cumm [facility] Imm gran abs 0.0 0.0 - 0.1 K/cumm [facility] Lymphocyte abs 3.4(H) 0.8 - 3.3 K/cumm [facility] Monocyte abs 1.3(H) 0.2 - 0.8 K/cumm [facility] Eosinophil abs 0.2 0.0 - 0.5 K/cumm [facility] Neutrophil pct 55.5 % [facility] Comment: Interpretive Data Percent cell count reference ranges are not reported, since discordance with absolute values may lead to misinterpretation of CBC data. Current Interpretive Data was last revised on 2018. Lymphocyte pct 30.8 % [facility] Comment: Interpretive Data Percent cell count reference ranges are not reported, since discordance with absolute values may lead to misinterpretation of CBC data. Current Interpretive Data was last revised on 2018. Monocyte pct 12.0 % [facility] Comment: Interpretive Data Percent cell count reference ranges are not reported, since discordance with absolute values may lead to misinterpretation of CBC data. Current Interpretive Data was last revised on 2018. Eosinophil pct 1.7 % [facility] Comment: Interpretive Data Percent cell count reference ranges are not reported, since discordance with absolute values may lead to misinterpretation of CBC data. Current Interpretive Data was last revised on 2018. RBC morphology Present(A) [facility] Anisocytosis Moderate(A) [facility] Macrocytes 8-15/HPF(A) [facility] Platelet estimate Adequate [facility] Blood 12/19/2024 4:40 AM SPACE SCHEDULER 12/19/2024 4:51 AM SPACE SCHEDULER Jared Davis MD LAB BLOOD ORDERABLES Edited Result - Final [facility] [address] [place] [address] * Hepatitis B surface antibody (immune status) Blood (12/19/2024 4:40 AM SPACE SCHEDULER) HBsAb (immune status) Nonreactive Comment:This result is consi stent with a lack of immunity to Hepatitis B Virus when used in the setting of routine screening. Current interpretative data was last revised on 22 Blood 12/19/2024 4:40 AM SPACE SCHEDULER 12/19/2024 4:51 AM SPACE SCHEDULER us Brody Park MD LAB MICROBIOLOGY - GENERAL O RDERABLES Final Result Performing Organization Address [facility]/ZIP Co de Phone Number [facility] Department [place] [address] * (ABNORMAL) CBC without differential (12/19/2024 4:40 AM SPACE SCHEDULER) Pathologist [facility] WBC 10.9(H) 3.8 - 9.9 K/cumm Hgb 10.6(L) 13.0 - 17.5 g/dL [facility] Hct 32.1(L) 38.9 - 50.3 % [facility] Plt 308 150 - 400 K/cumm [facility] MPV 11.1 9.1 - 12.3 fL [facility] RBC 3.13(L) 4.30 - 5.80 M/cumm [facility] MCV 102.6(H) 81.3 - 96.4 fL [facility] MCH 33.9(H) 27.1 - 33.3 pg [facility] MCHC 33.0 32.3 - 35.7 g/dL [facility] RDW CV 13.9 11.1 - 14.9 % [facility] RDW SD 52.9(H) 35.7 - 48.1 fL [facility] NRBC abs 0.04(H) 0.00 - 0.01 K/cumm [facility] Blood 12/19/2024 4:40 AM SPACE SCHEDULER 12/19/2024 4:51 AM SPACE SCHEDULER us Jared Davis MD LAB BLOOD ORDERABLES Final R esult [facility] [place] [address] * (ABNORMAL) Phosphorus (12/19/2024 4:40 AM SPACE SCHEDULER) Pathologist [facility] Phosphorus, pl 1.8(L) 2.3 - 4.5 mg/dL Blood 12/19/2024 4:40 AM SPACE SCHEDULER 12/19/2024 4:51 AM SPACE SCHEDULER Jared Davis MD LAB BLOOD ORDERABLES Final R esult Performing Organization Address City/[facility] Co de Phone Number [facility] [place] [address] * Magnesium (12/19/2024 4:40 AM SPACE SCHEDULER) Magnesium 1.8 1.4 - 2.5 mg/dL Blood 12/19/2024 4:40 AM SPACE SCHEDULER 12/19/2024 4:51 AM SPACE SCHEDULER Jared Davis MD LAB BLOOD ORDERABLES Final R esult Performing Organization Address [facility] de Phone Number [facility] [place] [address] * (ABNORMAL) Hepatic function panel (12/19/2024 4:40 AM SPACE SCHEDULER) Bilirubin, total 0.5 0.1 - 1.2 mg/dL Bilirubin, direct 0.3 0.1 - 0.3 mg/dL [facility] Protein, pl 6.2(L) 6.5 - 8.5 g/dL [facility] Albumin 2.8(L) 3.5 - 5.0 g/dL [facility] Alk phos 161(H) 40 - 130 Units/L [facility] ALT 1,003(H) 7 - 55 Units/L [facility] AST 139(H) 10 - 50 Units/L [facility] Blood 12/19/2024 4:40 AM SPACE SCHEDULER 12/19/2024 4:51 AM SPACE SCHEDULER Kay La MD LAB BLOOD ORDERABLES Pilar l Result Performing Organization Address City/[facility] [facility] Co de Phone Number [facility] [place] [address] * (ABNORMAL) Basic metabolic panel (12/19/2024 4:40 AM SPACE SCHEDULER) Pathologist [facility] Sodium 141 135 - 145 mmol/L Potassium, pl 3.7 3.3 - 4.9 mmol/L [facility] Chloride 101 97 - 110 mmol/L [facility] CO2 36(H) 22 - 32 mmol/L [facility] Anion gap 4 2 - 15 mmol/L [facility] BUN 10 6 - 25 mg/dL [facility] Creatinine 0.69(L) 0.80 - 1.30 mg/dL [facility] Glucose 136 70 - 199 mg/dL [facility] Comment: Interpretive Data Fasting glucose [...] 2022. Calcium 8.5 8.5 - 10.3 mg/dL [facility] Blood 12/19/2024 4:40 AM SPACE SCHEDULER 12/19/2024 4:51 AM SPACE SCHEDULER Narrative [facility] - 12/19/2024 5:16 AM SPACE SCHEDULER Daily except Saturday and . Morning draw. Jared Davis MD LAB BLOOD ORDERABLES Final R esult [facility] [address] [place] [address] * Urinalysis reflex to microscopic and culture Urine, clean voided (12/18/2024 10:01 PM SPACE SCHEDULER) [facility] Color, ur Straw Yellow Clarity, ur Clear Clear [facility] Specific gravity, ur 1.021 1.003 - 1.[address] [facility] pH, urine 6.5 [facility] Comment: Interpretive Data U rine pH is affected by diet, medications, systemic acid-base disturbances, and renal tubular function. pH may affect urinary stone formation. For example, urine pH below 6.0 may help reduce the tendency for calcium phosphate stones and pH greater than 6.0 may reduce the tendency for uric acid stone formation. Source: [facility] Current Interpretive Data was last revised on 2017 Protein, ur ql Trace Negative [facility] Glucose, ur ql Negative Negative [facility] Ketones, ur Trace Negative [facility] Bilirubin, ur Negative Negative [facility] Blood, ur Negative Negative [facility] Urobilinogen, ur <2.0 <2.0 mg/dL [facility] Nitrite, ur Negative Negative [facility] Leukocyte esterase, ur Negative Negative [facility] UA reflex comment Reflex conditions for microscopic UA and culture not met. [facility] Urine, clean voided 12/18/2024 10:01 PM SPACE SCHEDULER 12/18/2024 10:41 PM SPACE SCHEDULER Kay La MD LAB MICROBIOLOGY - GENERA L ORDERABLES Final Result Performing Organization Address City/[facility] Co de Phone Number [facility] Department [place] [address] * Legionella antigen Urine (12/18/2024 10:01 PM SPACE SCHEDULER) Legionella Ag Negative Negative Comment: Interpretive Data This test detects only Legionella pneumophila serogroup 1 antigen. Testing performed by [facility] ([phone]). Current interpretive data was last revised on 2020. Urine 12/18/2024 10:0 1 PM SPACE SCHEDULER 12/18/2024 10:44 PM SPACE SCHEDULER Kay La MD LAB MICROBIOLOGY - GENERA L ORDERABLES Final Result Performing Organization Address City/[facility]/ZIP Co de Phone Number [facility] [place] [address] * XR Chest 1 View (12/18/2024 8:55 PM SPACE SCHEDULER) Anatomical Region Laterality Modality Body, Chest N/A Computed Radiogr aphy 12/19/2024 7:37 AM SPACE SCHEDULER Impressions 12/19/2024 7:37 AM SPACE SCHEDULER The current study is compared with the [...] Pearl Carvalho M.D. Narrative 12/19/2024 7:37 AM SPACE SCHEDULER EXAMINATION: 1 view chest radiograph Procedure Note [...] pneumothorax Electronically signed by: Pearl Carvalho M.D. Jared Davis MD IMG XR PROCEDURES Final Resu lt * Troponin I high-sensitivity (12/18/2024 8:21 PM SPACE SCHEDULER) Trop I hs 4 <=35 ng/L Comment: Interpretive Data For further hscTnI resources including the diagnostic algorithm and an aid in interpretation, copy and paste this link: [email or web address].testcatalog.org/[email or web address] Current Interpretive Data last revised 2020. Blood 12/18/2024 8:21 PM SPACE SCHEDULER 12/18/2024 8:38 PM SPACE SCHEDULER Kay La MD LAB BLOOD ORDERABLES Pilar l Result Performing Organization Address City/[facility] Co de Phone Number [facility] [place] [address] * Lactate (12/18/2024 8:21 PM SPACE SCHEDULER) Lactate 1.3 0.7 - 2.0 mmol/L Blood 12/18/2024 8:21 PM SPACE SCHEDULER 12/18/2024 8:38 PM SPACE SCHEDULER Kay La MD LAB BLOOD ORDERABLES Pilar l Result Performing Organization Address [facility] de Phone Number [facility] [place] [address] * eGFR (12/18/2024 8:21 PM SPACE SCHEDULER) eGFR >90 >=60 mL/min/1. 73 m2 Comment: [...] last reviewed 2021. Blood 12/18/2024 8:21 PM SPACE SCHEDULER 12/18/2024 8:38 PM SPACE SCHEDULER Jared Davis MD LAB BLOOD ORDERABLES Final R esult [facility] [address] [place] [address] * Respiratory pathogen panel Nasopharyngeal (12/18/2024 8:21 PM SPACE SCHEDULER) Pathologist [facility] Influenza A RNA Not Detected Not Detected Influenza B RNA Not Detected Not Detected [facility] RSV RNA Not Detected Not Detected [facility] COVID-19 RNA Not Detected Not Detected [facility] Coronavirus 229E RNA Not Detected Not Detected [facility] Coronavirus HKU1 RNA Not Detected Not Detected [facility] Coronavirus NL63 RNA Not Detected Not Detected [facility] Coronavirus OC43 RNA Not Detected Not Detected [facility] Adenovirus DNA Not Detected Not Detected [facility] Metapneumovirus RNA Not Detected Not Detected [facility] Rhinovirus/Enterov irus RNA Not Detected Not Detected [facility] Parainfluenza 1 RNA Not Detected Not Detected [facility] Parainfluenza 2 RNA Not Detected Not Detected [facility] Parainfluenza 3 RNA Not Detected Not Detected [facility] Parainfluenza 4 RNA Not Detected Not Detected [facility] B. pertussis DNA Not Detected Not Detected [facility] B. parapertussis DNA Not Detected Not Detected [facility] C. pneumoniae DNA Not Detected Not Detected [facility] M. pneumoniae DNA Not Detected Not Detected [facility] Nasopharyngeal 12/18/2024 8: 21 PM SPACE SCHEDULER 12/18/2024 8:44 PM SPACE SCHEDULER Narrative [facility] - 12/18/2024 10:16 PM SPACE SCHEDULER Is the Patient experiencing symptoms consistent with COVID?->Unknown Surveillance testing for transplant patient?->No Interpretive Data The [employer] FilmArray Respiratory Panel (RP2.1) assay is a [...] assay has FDA clearance for testing of PAINT LINE [employer] swabs. The performance of additional specimen types has been assessed by the performing laboratory. The performance characteristics of this assay have been determined by [facility] Molecular Infectious Disease Laboratory. Current interpretive data was last revised on 22. Kay La MD LAB MICROBIOLOGY - GENERA L ORDERABLES Final Result [facility] [place] [address] * (ABNORMAL) Bartonella antibody panel Blood (12/18/2024 8:21 PM SPACE SCHEDULER) Pathologist [facility] B Henselae, IgG 1:1024(A) <1:128 titer [facility] Comment:Results suggest rece nt infection. B Henselae, IgM <1:20 <1:20 titer [facility] B. Brown, IgG <1:128 <1:128 titer [facility] B. Brown, IgM <1:20 <1:20 titer [facility] Comment: ADDITIONAL INFORMATION This test was developed and its performance characteristics determined by [facility] in a manner consistent with CLIA requirements. This test has not been cleared or approved by the U.S. Food and Drug Administration. Test Performed by: [facility] - [facility] [address] [place] [address] Commodity Manager: Cayden Orellana Ph.D.; CLIA# [id number] Blood 12/18/2024 8:21 PM SPACE SCHEDULER 12/19/2024 1:10 PM SPACE SCHEDULER Brody Park MD LAB MICROBIOLOGY - GENERAL O RDERABLES Final Result [facility] [place] [address] [facility] * Hepatitis panel, acute Blood (12/18/2024 8:21 PM SPACE SCHEDULER) Pathologist [facility] Hep A IgM Nonreactive Nonreactive Hep B core IgM Nonreactive Nonreactive [facility] Hep C Ab Nonreactive Nonreactive [facility] Comment:Antibodies to HCV no t detected. Does NOT exclude the possibility of recent exposure to HCV. Current interpretive data was last revised on 22 HepBsAg Nonreactive Nonreactive [facility] Blood 12/18/2024 8:21 PM SPACE SCHEDULER 12/18/2024 8:43 PM SPACE SCHEDULER Kay La MD LAB MICROBIOLOGY - GENERA L ORDERABLES Final Result [facility] [address] Department [place] [address] * (ABNORMAL) Manual Differential (12/18/2024 8:21 PM SPACE SCHEDULER) Differential Manual Cells Counted 115 [facility] Neutrophil abs 7.6(H) 1.5 - 6.5 K/cumm [facility] Imm gran abs 0.0 0.0 - 0.1 K/cumm [facility] Lymphocyte abs 4.3(H) 0.8 - 3.3 K/cumm [facility] Monocyte abs 1.3(H) 0.2 - 0.8 K/cumm [facility] Eosinophil abs 0.1 0.0 - 0.5 K/cumm [facility] Basophil abs 0.4(H) 0.0 - 0.1 K/cumm [facility] Neutrophil pct 55.6 % [facility] Comment: Interpretive Data Percent cell count reference ranges are not reported, since discordance with absolute values may lead to misinterpretation of CBC data. Current Interpretive Data was last revised on 2018. Lymphocyte pct 31.3 % [facility] Comment: Interpretive Data Percent cell count reference ranges are not reported, since discordance with absolute values may lead to misinterpretation of CBC data. Current Interpretive Data was last revised on 2018. Monocyte pct 9.6 % [facility] Comment: Interpretive Data Percent cell count reference ranges are not reported, since discordance with absolute values may lead to misinterpretation of CBC data. Current Interpretive Data was last revised on 2018. Eosinophil pct 0.9 % [facility] Comment: Interpretive Data Percent cell count reference ranges are not reported, since discordance with absolute values may lead to misinterpretation of CBC data. Current Interpretive Data was last revised on 2018. Basophil pct 2.6 % [facility] Comment: Interpretive Data Percent cell count reference ranges are not reported, since discordance with absolute values may lead to misinterpretation of CBC data. Current Interpretive Data was last revised on 2018. RBC morphology Present(A) [facility] Anisocytosis Marked(A) [facility] Macrocytes > 15/HPF(A) [facility] Platelet estimate Adequate [facility] Blood 12/18/2024 8:21 PM SPACE SCHEDULER 12/18/2024 8:38 PM SPACE SCHEDULER Jared Davis MD LAB BLOOD ORDERABLES Edited Result - Final [facility] [address] [place] [address] * Blood culture Blood (12/18/2024 8:21 PM SPACE SCHEDULER) Report Final Report: No growth Blood 12/18/2024 8:21 PM SPACE SCHEDULER 12/18/2024 8:38 PM SPACE SCHEDULER Narrative [facility] - 12/23/2024 7:00 AM SPACE SCHEDULER Collection->Peripheral 1. Blood cultures are incubated for [...] performance characteristics have been verified by the [facility]. For questions about this culture, contact the Microbiology Laboratory at [phone]. Interpretive data was last revised on 24. Kay La MD LAB MICROBIOLOGY - GENERA L ORDERABLES Final Result Performing Organization Address [facility] de [place] [address] * aPTT (12/18/2024 8:21 PM SPACE SCHEDULER) aPTT 33 28 - 38 sec Comment: Interpretive Data Heparin therapeutic range: 66.0 - 100.0 seconds. Range based on correlation with therapeutic heparin activity range of 0.3 - 0.7 Units/mL. Current interpretive data was last revised on 2023. Blood 12/18/2024 8:21 PM SPACE SCHEDULER 12/18/2024 8:42 PM SPACE SCHEDULER Jared Davis MD LAB BLOOD ORDERABLES Final R esult Performing Organization Address [facility] de Phone Number [facility] [place] [address] * (ABNORMAL) Protime-INR (12/18/2024 8:21 PM SPACE SCHEDULER) PT 16.2(H) 9.7 - 13.0 sec INR 1.49(H) 0.90 - 1.20 [facility] Comment: Interpretive data Oral anticoagulant therapeutic ranges: Venous thromboembolism prophylaxis or treatment: 2.0-3.0 CARDIOLOGY Standard range: 2.0-3.0 High-intensity range: 2.5-3.5 Refer to indication-specific guidelines for appropriate target ranges for prosthetic heart valve replacement. Current interpretive data was last revised on 2019. Blood 12/18/2024 8:21 PM SPACE SCHEDULER 12/18/2024 8:42 PM SPACE SCHEDULER Jared Davis MD LAB BLOOD ORDERABLES Final R esult Performing Organization Address [facility] de Phone Number [facility] [place] [address] * (ABNORMAL) Fibrinogen (12/18/2024 8:21 PM SPACE SCHEDULER) [facility] Fibrinogen 457(H) 170 - 400 mg/dL Blood 12/18/2024 8:21 PM SPACE SCHEDULER 12/18/2024 8:42 PM SPACE SCHEDULER Jared Davis MD LAB BLOOD ORDERABLES Final R esult [facility] [address] [facility] [place] [address] * (ABNORMAL) CBC without differential (12/18/2024 8:21 PM SPACE SCHEDULER) [facility] WBC 13.6(H) 3.8 - 9.9 K/cumm Hgb 11.9(L) 13.0 - 17.5 g/dL [facility] Hct 36.2(L) 38.9 - 50.3 % [facility] Plt 357 150 - 400 K/cumm [facility] MPV 11.0 9.1 - 12.3 fL [facility] RBC 3.53(L) 4.30 - 5.80 M/cumm [facility] MCV 102.5(H) 81.3 - 96.4 fL [facility] MCH 33.7(H) 27.1 - 33.3 pg [facility] MCHC 32.9 32.3 - 35.7 g/dL [facility] RDW CV 13.9 11.1 - 14.9 % [facility] RDW SD 52.5(H) 35.7 - 48.1 fL [facility] NRBC abs 0.03(H) 0.00 - 0.01 K/cumm [facility] Blood 12/18/2024 8:21 PM SPACE SCHEDULER 12/18/2024 8:38 PM SPACE SCHEDULER Jared Davis MD LAB BLOOD ORDERABLES Final R esult [facility] [place] [address] * Type and screen (12/18/2024 8:21 PM SPACE SCHEDULER) Ursula, indirect Negative ABO Rh A Positive [facility] Blood 12/18/2024 8:21 PM SPACE SCHEDULER 12/18/2024 8:33 PM SPACE SCHEDULER Narrative [facility] - 12/18/2024 9:25 PM SPACE SCHEDULER Has the patient had Daratumumab or Isatuximab in the past 6 months?->Unknown Jared Davis MD LAB BLOOD BANK TEST ORDERABL ES Final Result Performing Organization Address [facility] Co de Phone Number [facility] [place] [address] * Infection Prevention MRSA Only (Staphylococcus aureus) Culture Nasal (12/18/2024 8:21 PM SPACE SCHEDULER) Report Final Report: Negative Nasal 12/18/2024 8:21 PM SPACE SCHEDULER 12/18/2024 8:39 PM SPACE SCHEDULER Narrative [facility] - 12/20/2024 6:56 AM SPACE SCHEDULER Testing performed by [facility] ([phone]). Kay La MD LAB MICROBIOLOGY - GENERA L ORDERABLES Final Result Performing Organization Address City/[facility]/ZIP Co de Phone Number [facility] [place] [address] * Uric acid (12/18/2024 8:21 PM SPACE SCHEDULER) Uric acid 4.1 3.0 - 8.0 mg/dL Blood 12/18/2024 8:21 PM SPACE SCHEDULER 12/18/2024 8:30 PM SPACE SCHEDULER Jared Davis MD LAB BLOOD ORDERABLES Final R esult Performing Organization Address City/[facility] Co de Phone Number [facility] [place] [address] * (ABNORMAL) Phosphorus (12/18/2024 8:21 PM SPACE SCHEDULER) Phosphorus, pl 1.8(L) 2.3 - 4.5 mg/dL Blood 12/18/2024 8:21 PM SPACE SCHEDULER 12/18/2024 8:30 PM SPACE SCHEDULER Jared Davis MD LAB BLOOD ORDERABLES Final R esult Performing Organization Address [facility] Co de [place] [address] * Magnesium (12/18/2024 8:21 PM SPACE SCHEDULER) Magnesium 1.4 1.4 - 2.5 mg/dL Blood 12/18/2024 8:21 PM SPACE SCHEDULER 12/18/2024 8:30 PM SPACE SCHEDULER Jared Davis MD LAB BLOOD ORDERABLES Final R esult Performing Organization Address [facility] Co de Phone Number [facility] [place] [address] * Lactate dehydrogenase (LD) (12/18/2024 8:21 PM SPACE SCHEDULER) Lactate dehydrogenase (LDH) 230 100 - 250 Units/L Blood 12/18/2024 8:21 PM SPACE SCHEDULER 12/18/2024 8:30 PM SPACE SCHEDULER Jared Davis MD LAB BLOOD ORDERABLES Final R esult Performing Organization Address [facility] Co de Phone Number [facility] [place] [address] * (ABNORMAL) Creatine kinase (CK), total (12/18/2024 8:21 PM SPACE SCHEDULER) [facility] CK <20(L) 40 - 300 Units/L Blood 12/18/2024 8:21 PM SPACE SCHEDULER 12/18/2024 8:30 PM SPACE SCHEDULER Josué Del Valle MD PhD LAB BLOOD ORDERABLES Fin al Result Performing Organization Address [facility]/ZIP Co de Phone Number [facility] [place] [address] * Bilirubin, direct (12/18/2024 8:21 PM SPACE SCHEDULER) [facility] Bilirubin, direct 0.3 0.1 - 0.3 mg/dL Blood 12/18/2024 8:21 PM SPACE SCHEDULER 12/18/2024 8:30 PM SPACE SCHEDULER Jared Davis MD LAB BLOOD ORDERABLES Final R esult Performing Organization Address [facility] de Phone Number [facility] [place] [address] * (ABNORMAL) Comprehensive metabolic panel (12/18/2024 8:21 PM SPACE SCHEDULER) [facility] Sodium 142 135 - 145 mmol/L Potassium, pl 3.2(L) 3.3 - 4.9 mmol/L [facility] Chloride 100 97 - 110 mmol/L [facility] CO2 35(H) 22 - 32 mmol/L [facility] Anion gap 7 2 - 15 mmol/L [facility] BUN 12 6 - 25 mg/dL [facility] Creatinine 0.65(L) 0.80 - 1.30 mg/dL [facility] Glucose 141 70 - 199 mg/dL [facility] Comment: Interpretive Data Fasting glucose [...] 2022. Calcium 9.3 8.5 - 10.3 mg/dL [facility] Bilirubin, total 0.6 0.1 - 1.2 mg/dL [facility] Protein, pl 7.6 6.5 - 8.5 g/dL [facility] Albumin 3.4(L) 3.5 - 5.0 g/dL [facility] Alk phos 196(H) 40 - 130 Units/L [facility] ALT 1,357(H) 7 - 55 Units/L [facility] AST 235(H) 10 - 50 Units/L [facility] Blood 12/18/2024 8:21 PM SPACE SCHEDULER 12/18/2024 8:30 PM SPACE SCHEDULER Jared Davis MD LAB BLOOD ORDERABLES Final R esult [facility] [address] [place] [address] * ECG 12 lead (12/18/2024 6:22 PM SPACE SCHEDULER) Ventricular Rate EKG/Min 79 BPM [facility] Atrial Rate 79 BPM [facility] HI-Interval (MSEC) 152 ms [facility] QRS-Interval (MSEC) 88 ms [facility] QT-Interval (MSEC) 392 ms [facility] QTc 449 ms [facility] R [place] 102 degrees [facility] T [place] -1 degrees [facility] Diagnosis Sinus rhythm with occasional Premature ventricular complexes Rightward axis Poor R-wave progression in the precordial leads (cited on or before 18-DEC-2024) Abnormal ECG When compared with ECG of 28-NOV-2024 13:47, Premature ventricular complexes are now Present Confirmed by SOHAM WINTERS M.D ([id number]) on 12/21/2024 11:01:46 AM [facility] 12/18/2024 6:22 PM SPACE SCHEDULER 12/21/2024 11:01 AM SPACE SCHEDULER us Jared Davis MD ECG ORDERABLES Final Result Performing Organization Address City/[facility]/ZIP Co de Phone Number [facility] * POCT glucose (12/01/2024 12:16 PM SPACE SCHEDULER) Glucose, POC 89 70 - 199 mg/dL Blood 12/01/2024 12:1 6 PM SPACE SCHEDULER 12/01/2024 12:16 PM SPACE SCHEDULER us Josué Del Valle MD PhD LAB POCT ORDERABLES - DE VICE Final Result Performing Organization Address [facility] [place] Phone Number [facility] [place] [address] * POCT glucose (12/01/2024 8:16 AM SPACE SCHEDULER) Glucose, POC 171 70 - 199 mg/dL Blood 12/01/2024 8:16 AM SPACE SCHEDULER 12/01/2024 8:16 AM SPACE SCHEDULER us Josué Del Valle MD PhD LAB POCT ORDERABLES - DE VICE Final Result Performing Organization Address [facility] Phone Number [facility] [place] [address] * eGFR (12/01/2024 4:28 AM SPACE SCHEDULER) eGFR 74 >=60 mL/min/1. 73 m2 Comment: [...] last reviewed 2021. Blood 12/01/2024 4:28 AM SPACE SCHEDULER 12/01/2024 4:52 AM SPACE SCHEDULER us Juan A Chanel DO LAB BLOOD ORDERABLES Final Resul t [facility] [address] [place] [address] * (ABNORMAL) Manual Differential (12/01/2024 4:28 AM SPACE SCHEDULER) Differential Manual Cells Counted 115 [facility] Neutrophil abs 5.8 1.5 - 6.5 K/cumm [facility] Imm gran abs 0.0 0.0 - 0.1 K/cumm [facility] Lymphocyte abs 3.1 0.8 - 3.3 K/cumm [facility] Monocyte abs 1.7(H) 0.2 - 0.8 K/cumm [facility] Eosinophil abs 0.2 0.0 - 0.5 K/cumm [facility] Neutrophil pct 53.9 % [facility] Comment: Interpretive Data Percent cell count reference ranges are not reported, since discordance with absolute values may lead to misinterpretation of CBC data. Current Interpretive Data was last revised on 2018. Lymphocyte pct 28.7 % [facility] Comment: Interpretive Data Percent cell count reference ranges are not reported, since discordance with absolute values may lead to misinterpretation of CBC data. Current Interpretive Data was last revised on 2018. Monocyte pct 15.7 % [facility] Comment: Interpretive Data Percent cell count reference ranges are not reported, since discordance with absolute values may lead to misinterpretation of CBC data. Current Interpretive Data was last revised on 2018. Eosinophil pct 1.7 % [facility] Comment: Interpretive Data Percent cell count reference ranges are not reported, since discordance with absolute values may lead to misinterpretation of CBC data. Current Interpretive Data was last revised on 2018. RBC morphology Present(A) [facility] Anisocytosis Marked(A) [facility] Macrocytes > 15/HPF(A) [facility] Platelet estimate Adequate [facility] Blood 12/01/2024 4:28 AM SPACE SCHEDULER 12/01/2024 4:52 AM SPACE SCHEDULER Juan A Chanel DO LAB BLOOD ORDERABLES Final Resul t [facility] [address] [place] [address] * (ABNORMAL) CBC without differential (12/01/2024 4:28 AM SPACE SCHEDULER) WBC 10.8(H) 3.8 - 9.9 K/cumm Hgb 10.0(L) 13.0 - 17.5 g/dL [facility] Hct 30.5(L) 38.9 - 50.3 % [facility] Plt 303 150 - 400 K/cumm [facility] MPV 9.7 9.1 - 12.3 fL [facility] RBC 2.86(L) 4.30 - 5.80 M/cumm [facility] MCV 106.6(H) 81.3 - 96.4 fL [facility] MCH 35.0(H) 27.1 - 33.3 pg [facility] MCHC 32.8 32.3 - 35.7 g/dL [facility] RDW CV 14.0 11.1 - 14.9 % [facility] RDW SD 55.2(H) 35.7 - 48.1 fL [facility] NRBC abs 0.00 0.00 - 0.01 K/cumm [facility] Blood 12/01/2024 4:28 AM SPACE SCHEDULER 12/01/2024 4:52 AM SPACE SCHEDULER Juan A Chanel DO LAB BLOOD ORDERABLES Final Resul t Performing Organization Address City/[facility] Co de Phone Number [facility] [place] [address] * Phosphorus (12/01/2024 4:28 AM SPACE SCHEDULER) [facility] Phosphorus, pl 2.9 2.3 - 4.5 mg/dL Blood 12/01/2024 4:28 AM SPACE SCHEDULER 12/01/2024 4:52 AM SPACE SCHEDULER [facility] LAB BLOOD ORDERABLES Final Resul t Performing Organization Address [facility] de Phone Number [facility] Department [place] [address] * Magnesium (12/01/2024 4:28 AM SPACE SCHEDULER) [facility] Magnesium 2.1 1.4 - 2.5 mg/dL Blood 12/01/2024 4:28 AM SPACE SCHEDULER 12/01/2024 4:52 AM SPACE SCHEDULER Juan A Chanel LAB BLOOD ORDERABLES Final Resul t Performing Organization Address [facility] de Phone Number [facility] Department [place] [address] * (ABNORMAL) Basic metabolic panel (12/01/2024 4:28 AM SPACE SCHEDULER) [facility] Sodium 137 135 - 145 mmol/L Potassium, pl 4.5 3.3 - 4.9 mmol/L [facility] Chloride 101 97 - 110 mmol/L [facility] CO2 30 22 - 32 mmol/L [facility] Anion gap 6 2 - 15 mmol/L [facility] BUN 38(H) 6 - 25 mg/dL [facility] Creatinine 1.15 0.80 - 1.30 mg/dL [facility] Glucose 171 70 - 199 mg/dL [facility] Comment: Interpretive Data Fasting glucose [...] 2022. Calcium 9.0 8.5 - 10.3 mg/dL [facility] Blood 12/01/2024 4:28 AM SPACE SCHEDULER 12/01/2024 4:52 AM SPACE SCHEDULER Narrative [facility] - 12/01/2024 5:21 AM SPACE SCHEDULER Daily except Saturday and . Morning draw. Juan A Chanel DO LAB BLOOD ORDERABLES Final Resul t Performing Organization Address [facility] de Phone Number [facility] Department [place] [address] * POCT glucose (11/30/2024 8:47 PM SPACE SCHEDULER) Glucose, POC 152 70 - 199 mg/dL Blood 11/30/2024 8:47 PM SPACE SCHEDULER 11/30/2024 8:47 PM SPACE SCHEDULER Josué Del Valle MD PhD LAB POCT ORDERABLES - DE VICE Final Result Performing Organization Address [facility] Co de Phone Number [facility] [place] [address] * POCT glucose (11/30/2024 4:47 PM SPACE SCHEDULER) Glucose, POC 138 70 - 199 mg/dL Blood 11/30/2024 4:47 PM SPACE SCHEDULER 11/30/2024 4:47 PM SPACE SCHEDULER Josué Del Valle MD PhD LAB POCT ORDERABLES - DE VICE Final Result [facility] [address] [place] [address] * CT Body Outside Consult (11/30/2024 2:25 PM SPACE SCHEDULER) Anatomical Region Laterality Modality Body N/A Computed Tomogra phy 11/30/2024 3:50 PM SPACE SCHEDULER Impressions 11/30/2024 4:09 PM SPACE SCHEDULER 1. New patchy airspace opacity within the [...] images may or may not represent the hughes source data set and thus may contain changes that may lower the accuracy of this second-opinion interpretation. Dictated by: Chase Nieto MD The radiology attending physician has personally reviewed this study, and had reviewed and/or edited this written report and agrees with it. Electronically signed by: Zach Laurent M.D. 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-tblnts-dlpo disease, known nontuberculous mycobacterial pulmonary infection on [...] images may or may not represent the hughes source data set and thus may contain [...] Result * POCT glucose (11/30/2024 11:55 AM SPACE SCHEDULER) Glucose, POC 152 70 - 199 mg/dL Blood 11/30/2024 11:5 5 AM SPACE SCHEDULER 11/30/2024 11:55 AM SPACE SCHEDULER Josué Del Valle MD PhD LAB POCT ORDERABLES - DE VICE Final Result [facility] [address] [place] [address] * Tacrolimus level trough (11/30/2024 8:54 AM SPACE SCHEDULER) Tacrolimus trough <1.0 ng/mL Comment: Undetectable. Please verify that the correct immunosuppressant test was requested. Interpretive Data Testing performed by liquid chromatography-tandem mass spectrometry. Therapeutic concentrations vary depending on type of transplanted organ and time elapsed since transplant. Typical trough concentrations range from 5-15 ng/mL. This test was developed and its performance characteristics determined by the [facility] consistent with CLIA requirements. This test has not been cleared or approved by the [place] Food and Drug administration. Current interpretive data last reviewed 2020. Blood 11/30/2024 8:54 AM SPACE SCHEDULER 11/30/2024 9:10 AM SPACE SCHEDULER Juan A Chanel DO LAB BLOOD ORDERABLES Final Resul t Performing Organization Address [facility] Co de Phone Number [facility] [place] [address] * POCT glucose (11/30/2024 8:37 AM SPACE SCHEDULER) Glucose, POC 124 70 - 199 mg/dL Blood 11/30/2024 8:37 AM SPACE SCHEDULER 11/30/2024 8:37 AM SPACE SCHEDULER Josué Del Valle MD PhD LAB POCT ORDERABLES - DE VICE Final Result Performing Organization Address [facility] Phone Number ZULEMA [facility] [place] [address] * eGFR (11/30/2024 4:13 AM SPACE SCHEDULER) eGFR 78 >=60 mL/min/1. 73 m2 Comment: [...] last reviewed 2021. Blood 11/30/2024 4:13 AM SPACE SCHEDULER 11/30/2024 4:44 AM SPACE SCHEDULER Juan A Chanel DO LAB BLOOD ORDERABLES Final Resul t Performing Organization Address City/[facility] Co de Phone Number [facility]LEMA [facility] [address] Department [place] [address] * (ABNORMAL) Manual Differential (11/30/2024 4:13 AM SPACE SCHEDULER) Differential Manual Cells Counted 117 [facility] Neutrophil abs 5.0 1.5 - 6.5 K/cumm [facility] Imm gran abs 0.0 0.0 - 0.1 K/cumm [facility] Lymphocyte abs 3.8(H) 0.8 - 3.3 K/cumm [facility] Monocyte abs 1.3(H) 0.2 - 0.8 K/cumm [facility] Eosinophil abs 0.2 0.0 - 0.5 K/cumm [facility] Neutrophil pct 48.7 % [facility] Comment: Interpretive Data Percent cell count reference ranges are not reported, since discordance with absolute values may lead to misinterpretation of CBC data. Current Interpretive Data was last revised on 2018. Lymphocyte pct 36.8 % [facility] Comment: Interpretive Data Percent cell count reference ranges are not reported, since discordance with absolute values may lead to misinterpretation of CBC data. Current Interpretive Data was last revised on 2018. Monocyte pct 12.8 % [facility] Comment: Interpretive Data Percent cell count reference ranges are not reported, since discordance with absolute values may lead to misinterpretation of CBC data. Current Interpretive Data was last revised on 2018. Eosinophil pct 1.7 % [facility] Comment: Interpretive Data Percent cell count reference ranges are not reported, since discordance with absolute values may lead to misinterpretation of CBC data. Current Interpretive Data was last revised on 2018. RBC morphology Present(A) [facility] Anisocytosis Marked(A) [facility] Macrocytes > 15/HPF(A) [facility] Platelet estimate Adequate [facility] Blood 11/30/2024 4:13 AM SPACE SCHEDULER 11/30/2024 4:43 AM SPACE SCHEDULER Juan A Chanel DO LAB BLOOD ORDERABLES Edited Resu lt - Final Performing Organization Address City/State/[facility] de Phone Number [facility] [place] [address] * (ABNORMAL) aPTT (11/30/2024 4:13 AM SPACE SCHEDULER) aPTT 43(H) 28 - 38 sec Comment: Interpretive Data Heparin therapeutic range: 66.0 - 100.0 seconds. Range based on correlation with therapeutic heparin activity range of 0.3 - 0.7 Units/mL. Current interpretive data was last revised on 2023. Blood 11/30/2024 4:13 AM SPACE SCHEDULER 11/30/2024 4:35 AM SPACE SCHEDULER [employer] Chanel [facility] BLOOD ORDERABLES Final Resul t Performing Organization Address [facility] de Phone Number [facility] [email or web address] [address] * (ABNORMAL) Protime-INR (11/30/2024 4:13 AM SPACE SCHEDULER) PT 15.9(H) 9.7 - 13.0 sec INR 1.46(H) 0.90 - 1.20 [facility] Comment: Interpretive data Oral anticoagulant therapeutic ranges: Venous thromboembolism prophylaxis or treatment: 2.0-3.0 CARDIOLOGY Standard range: 2.0-3.0 High-intensity range: 2.5-3.5 Refer to indication-specific guidelines for appropriate target ranges for prosthetic heart valve replacement. Current interpretive data was last revised on 2019. Blood 11/30/2024 4:13 AM SPACE SCHEDULER 11/30/2024 4:35 AM SPACE SCHEDULER [employer] LAB BLOOD ORDERABLES Final Resul t Performing Organization Address [facility] de Phone Number ZULEMA [facility] [address] * (ABNORMAL) CBC without differential (11/30/2024 4:13 AM SPACE SCHEDULER) WBC 10.3(H) 3.8 - 9.9 K/cumm Hgb 10.0(L) 13.0 - 17.5 g/dL [facility] Hct 30.3(L) 38.9 - 50.3 % [facility] Plt 331 150 - 400 K/cumm [facility] MPV 10.1 9.1 - 12.3 fL [facility] RBC 2.89(L) 4.30 - 5.80 M/cumm [facility] MCV 104.8(H) 81.3 - 96.4 fL [facility] MCH 34.6(H) 27.1 - 33.3 pg [facility] MCHC 33.0 32.3 - 35.7 g/dL [facility] RDW CV 14.1 11.1 - 14.9 % [facility] RDW SD 54.3(H) 35.7 - 48.1 fL [facility] NRBC abs 0.00 0.00 - 0.01 K/cumm [facility] Blood 11/30/2024 4:13 AM SPACE SCHEDULER 11/30/2024 4:43 AM SPACE SCHEDULER Juan A Chanel DO LAB BLOOD ORDERABLES Final Resul t Performing Organization Address [facility] de Phone Number [facility] Department [place] [address] * Type and screen (11/30/2024 4:13 AM SPACE SCHEDULER) Pathologist [facility] ABO Rh A Positive Ursula, indirect Negative [facility] Blood 11/30/2024 4:13 AM SPACE SCHEDULER 11/30/2024 4:42 AM SPACE SCHEDULER Narrative [facility] - 11/30/2024 5:52 AM SPACE SCHEDULER Has the patient had Daratumumab or Isatuximab in the past 6 months?->Unknown Juan A Chanel DO LAB BLOOD BANK TEST ORDERABLES F inal Result Performing Organization Address City/[facility]/ZIP [place] [address] * Uric acid (11/30/2024 4:13 AM SPACE SCHEDULER) Uric acid 3.4 3.0 - 8.0 mg/dL Blood 11/30/2024 4:13 AM SPACE SCHEDULER 11/30/2024 4:44 AM SPACE SCHEDULER Narrative [facility] 11/30/2024 5:14 AM SPACE SCHEDULER Saturday and only. Morning draw. . us Juan A Chanel DO LAB BLOOD ORDERABLES Final Resul t Performing Organization Address City/[facility] Co de [place] [address] * Phosphorus (11/30/2024 4:13 AM SPACE SCHEDULER) Phosphorus, pl 2.6 2.3 - 4.5 mg/dL Blood 11/30/2024 4:13 AM SPACE SCHEDULER 11/30/2024 4:44 AM SPACE SCHEDULER us Juan A Chanel DO LAB BLOOD ORDERABLES Final Resul t Performing Organization Address [facility] Co de [place] [address] * Magnesium (11/30/2024 4:13 AM SPACE SCHEDULER) Magnesium 2.0 1.4 - 2.5 mg/dL Blood 11/30/2024 4:13 AM SPACE SCHEDULER 11/30/2024 4:44 AM SPACE SCHEDULER Juan A Chanel DO LAB BLOOD ORDERABLES Final Resul t Performing Organization Address City/[facility] Co de Phone Number [facility] [place] [address] * Lactate dehydrogenase (LD) (11/30/2024 4:13 AM SPACE SCHEDULER) Pathologist [facility] Lactate dehydrogenase (LDH) 239 100 - 250 Units/L Blood 11/30/2024 4:13 AM SPACE SCHEDULER 11/30/2024 4:44 AM SPACE SCHEDULER Narrative [facility] - 11/30/2024 5:14 AM SPACE SCHEDULER Saturday and only. Morning draw. Juan A Chanel DO LAB BLOOD ORDERABLES Final Resul t [facility] [address] [place] [address] * (ABNORMAL) Comprehensive metabolic panel (11/30/2024 4:13 AM SPACE SCHEDULER) [facility] Sodium 137 135 - 145 mmol/L Potassium, pl 4.4 3.3 - 4.9 mmol/L [facility] Chloride 100 97 - 110 mmol/L [facility] CO2 31 22 - 32 mmol/L [facility] Anion gap 6 2 - 15 mmol/L [facility] BUN 26(H) 6 - 25 mg/dL [facility] Creatinine 1.10 0.80 - 1.30 mg/dL [facility] Glucose 154 70 - 199 mg/dL [facility] Comment: Interpretive Data Fasting glucose [...] 2022. Calcium 9.0 8.5 - 10.3 mg/dL [facility] Bilirubin, total 0.2 0.1 - 1.2 mg/dL [facility] Protein, pl 6.0(L) 6.5 - 8.5 g/dL [facility] Albumin 3.1(L) 3.5 - 5.0 g/dL [facility] Alk phos 132(H) 40 - 130 Units/L [facility] ALT 28 7 - 55 Units/L [facility] AST 29 10 - 50 Units/L [facility] Blood 11/30/2024 4:13 AM SPACE SCHEDULER 11/30/2024 4:44 AM SPACE SCHEDULER Narrative [facility] - 11/30/2024 5:14 AM SPACE SCHEDULER Saturday and only. Morning draw. Juan A Chanel DO LAB BLOOD ORDERABLES Final Resul t Performing Organization Address [facility] Co de Phone Number [facility] [email or web address] [address] * POCT glucose (11/29/2024 9:06 PM SPACE SCHEDULER) Glucose, POC 178 70 - 199 mg/dL Blood 11/29/2024 9:06 PM SPACE SCHEDULER 11/29/2024 9:06 PM SPACE SCHEDULER us Josué Del Valle MD PhD LAB POCT ORDERABLES - DE VICE Final Result Performing Organization Address City/[facility] Co de Phone Number [facility] [place] [address] * POCT glucose (11/29/2024 5:14 PM SPACE SCHEDULER) Glucose, POC 103 70 - 199 mg/dL Blood 11/29/2024 5:14 PM SPACE SCHEDULER 11/29/2024 5:14 PM SPACE SCHEDULER Josué Del Valle MD PhD LAB POCT ORDERABLES - DE VICE Final Result Performing Organization Address [facility] Co de Phone Number [facility] [email or web address] [address] * POCT glucose (11/29/2024 1:11 PM SPACE SCHEDULER) Glucose, POC 115 70 - 199 mg/dL Blood 11/29/2024 1:11 PM SPACE SCHEDULER 11/29/2024 1:11 PM SPACE SCHEDULER Josué Del Valle MD PhD LAB POCT ORDERABLES - DE VICE Final Result Performing Organization Address City/[facility] Co de Phone Number [facility] [place] [address] * POCT glucose (11/29/2024 8:13 AM SPACE SCHEDULER) Glucose, POC 84 70 - 199 mg/dL Blood 11/29/2024 8:13 AM SPACE SCHEDULER 11/29/2024 8:13 AM SPACE SCHEDULER us Josué Del Valle MD PhD LAB POCT ORDERABLES - DE VICE Final Result Performing Organization Address [facility] Phone Number [facility] [place] [address] * eGFR (11/29/2024 12:29 AM SPACE SCHEDULER) eGFR >90 >=60 mL/min/1. 73 m2 Comment: [...] reviewed 2021. Blood 11/29/2024 12:2 9 AM SPACE SCHEDULER 11/29/2024 1:35 AM SPACE SCHEDULER us Juan A Chanel DO LAB BLOOD ORDERABLES Final Resul t [facility] [address] Department [place] [address] * (ABNORMAL) Manual Differential (11/29/2024 12:29 AM SPACE SCHEDULER) Differential Manual Cells Counted 115 [facility] Neutrophil abs 4.0 1.5 - 6.5 K/cumm [facility] Imm gran abs 0.0 0.0 - 0.1 K/cumm [facility] Lymphocyte abs 3.2 0.8 - 3.3 K/cumm [facility] Monocyte abs 0.9(H) 0.2 - 0.8 K/cumm [facility] Eosinophil abs 0.2 0.0 - 0.5 K/cumm [facility] Neutrophil pct 47.8 % [facility] Comment: Interpretive Data Percent cell count reference ranges are not reported, since discordance with absolute values may lead to misinterpretation of CBC data. Current Interpretive Data was last revised on 2018. Lymphocyte pct 38.3 % [facility] Comment: Interpretive Data Percent cell count reference ranges are not reported, since discordance with absolute values may lead to misinterpretation of CBC data. Current Interpretive Data was last revised on 2018. Monocyte pct 11.3 % [facility] Comment: Interpretive Data Percent cell count reference ranges are not reported, since discordance with absolute values may lead to misinterpretation of CBC data. Current Interpretive Data was last revised on 2018. Eosinophil pct 2.6 % [facility] Comment: Interpretive Data Percent cell count reference ranges are not reported, since discordance with absolute values may lead to misinterpretation of CBC data. Current Interpretive Data was last revised on 2018. RBC morphology Present(A) [facility] Anisocytosis Marked(A) [facility] Macrocytes > 15/HPF(A) [facility] Platelet estimate Adequate [facility] Blood 11/29/2024 12:2 9 AM SPACE SCHEDULER 11/29/2024 1:32 AM SPACE SCHEDULER Juan A Chanel LAB BLOOD ORDERABLES Edited Resu lt - Final Performing Organization Address City/State/[facility] Co de Phone Number [facility] Department [place] [address] * (ABNORMAL) CBC without differential (11/29/2024 12:29 AM SPACE SCHEDULER) WBC 8.3 3.8 - 9.9 K/cumm Hgb 9.5(L) 13.0 - 17.5 g/dL [facility] Hct 29.5(L) 38.9 - 50.3 % [facility] Plt 376 150 - 400 K/cumm [facility] MPV 10.4 9.1 - 12.3 fL [facility] RBC 2.78(L) 4.30 - 5.80 M/cumm [facility] MCV 106.1(H) 81.3 - 96.4 fL [facility] MCH 34.2(H) 27.1 - 33.3 pg [facility] MCHC 32.2(L) 32.3 - 35.7 g/dL [facility] RDW CV 14.2 11.1 - 14.9 % [facility] RDW SD 55.5(H) 35.7 - 48.1 fL [facility] NRBC abs 0.04(H) 0.00 - 0.01 K/cumm [facility] Blood 11/29/2024 12:2 9 AM SPACE SCHEDULER 11/29/2024 1:32 AM SPACE SCHEDULER Juan A Chanel DO LAB BLOOD ORDERABLES Final Resul t [facility] [place] [address] * (ABNORMAL) Phosphorus (11/29/2024 12:29 AM SPACE SCHEDULER) Phosphorus, pl 2.2(L) 2.3 - 4.5 mg/dL Blood 11/29/2024 12:2 9 AM SPACE SCHEDULER 11/29/2024 1:35 AM SPACE SCHEDULER [facility] LAB BLOOD ORDERABLES Final Resul t Performing Organization Address City/[facility] de Phone Number [facility] [place] [address] * Magnesium (11/29/2024 12:29 AM SPACE SCHEDULER) Pathologist [facility] Magnesium 1.7 1.4 - 2.5 mg/dL Blood 11/29/2024 12:2 9 AM SPACE SCHEDULER 11/29/2024 1:35 AM SPACE SCHEDULER [facility] LAB BLOOD ORDERABLES Final Resul t Performing Organization Address [facility] de Phone Number [facility] [place] [address] * (ABNORMAL) Basic metabolic panel (11/29/2024 12:29 AM SPACE SCHEDULER) Pathologist [facility] Sodium 138 135 - 145 mmol/L Potassium, pl 3.7 3.3 - 4.9 mmol/L [facility] Chloride 99 97 - 110 mmol/L [facility] CO2 34(H) 22 - 32 mmol/L [facility] Anion gap 5 2 - 15 mmol/L [facility] BUN 17 6 - 25 mg/dL [facility] Creatinine 0.88 0.80 - 1.30 mg/dL [facility] Glucose 119 70 - 199 mg/dL [facility] Comment: Interpretive Data Fasting glucose [...] 2022. Calcium 8.7 8.5 - 10.3 mg/dL [facility] Blood 11/29/2024 12:2 9 AM SPACE SCHEDULER 11/29/2024 1:35 AM SPACE SCHEDULER Narrative [facility] - 11/29/2024 1:38 AM SPACE SCHEDULER Daily except Saturday and . Morning draw. us Juan A Chanel DO LAB BLOOD ORDERABLES Final Resul t Performing Organization Address City/[facility] Co de Phone Number [facility] [place] [address] * (ABNORMAL) POCT glucose (11/28/2024 9:30 PM SPACE SCHEDULER) Glucose, POC 204(H) 70 - 199 mg/dL Blood 11/28/2024 9:30 PM SPACE SCHEDULER 11/28/2024 9:30 PM SPACE SCHEDULER us Josué Del Valle MD PhD LAB POCT ORDERABLES - DE VICE Final Result Performing Organization Address City/[facility] Co de Phone Number [facility] [place] [address] * POCT glucose (11/28/2024 5:09 PM SPACE SCHEDULER) Glucose, POC 182 70 - 199 mg/dL Blood 11/28/2024 5:09 PM SPACE SCHEDULER 11/28/2024 5:09 PM SPACE SCHEDULER Josué Del Valle MD PhD LAB POCT ORDERABLES - DE VICE Final Result Performing Organization Address City/[facility] Co de Phone Number [facility] [email or web address] [address] * ECG 12 lead (11/28/2024 1:47 PM SPACE SCHEDULER) Ventricular Rate EKG/Min 63 BPM [facility] Atrial Rate 63 BPM [facility] HI-Interval (MSEC) 138 ms [facility] QRS-Interval (MSEC) 92 ms [facility] QT-Interval (MSEC) 430 ms [facility] QTc 440 ms [facility] P [place] 79 degrees [facility] R [place] 88 degrees [facility] T [place] 41 degrees [facility] Diagnosis Normal sinus rhythm Poor r wave progression associated with abnormal lead placement, obesity, pulmonary disease, anterior infarction. Borderline ECG When compared with ECG of 29-JUL-2024 09:55, ST no longer depressed in Inferior leads T wave inversion no longer evident in Inferior leads T wave inversion no longer evident in Lateral leads QT has shortened Confirmed by SOHAM WINTERS M.D ([id number]) on 11/30/2024 10:34:40 AM [facility] 11/28/2024 1:47 PM SPACE SCHEDULER 11/30/2024 10:34 AM SPACE SCHEDULER Juan A Chanel DO ECG ORDERABLES Final Result [facility] * eGFR (11/28/2024 1:40 PM SPACE SCHEDULER) eGFR >90 >=60 mL/min/1. 73 m2 Comment: [...] last reviewed 2021. Blood 11/28/2024 1:40 PM SPACE SCHEDULER 11/28/2024 1:46 PM SPACE SCHEDULER us Juan A hCanel DO LAB BLOOD ORDERABLES Final [facility] t [facility] [address] [place] [address] * (ABNORMAL) Manual Differential (11/28/2024 1:40 PM SPACE SCHEDULER) Differential Manual Cells [facility] 114 [facility] Neutrophil abs 4.5 1.5 - 6.5 K/cumm [facility] Imm gran abs 0.1 0.0 - 0.1 K/cumm [facility] Lymphocyte abs 2.0 0.8 - 3.3 K/cumm [facility] Monocyte abs 0.6 0.2 - 0.8 K/cumm [facility] Eosinophil abs 0.4 0.0 - 0.5 K/cumm [facility] Neutrophil pct 58.7 % [facility] Comment: Interpretive Data Percent cell count reference ranges are not reported, since discordance with absolute values may lead to misinterpretation of CBC data. Current Interpretive Data was last revised on 2018. Lymphocyte pct 26.3 % [facility] Comment: Interpretive Data Percent cell count reference ranges are not reported, since discordance with absolute values may lead to misinterpretation of CBC data. Current Interpretive Data was last revised on 2018. Monocyte pct 7.9 % [facility] Comment: Interpretive Data Percent cell count reference ranges are not reported, since discordance with absolute values may lead to misinterpretation of CBC data. Current Interpretive Data was last revised on 2018. Eosinophil pct 5.3 % [facility] Comment: Interpretive Data Percent cell count reference ranges are not reported, since discordance with absolute values may lead to misinterpretation of CBC data. Current Interpretive Data was last revised on 2018. Myelocyte pct 1.8 % [facility] RBC morphology Present(A) [facility] Anisocytosis Slight(A) [facility] Poikilocytosis Slight(A) [facility] Macrocytes > 15/HPF(A) [facility] Platelet estimate Adequate [facility] Blood 11/28/2024 1:40 PM SPACE SCHEDULER 11/28/2024 1:46 PM SPACE SCHEDULER Juan A Chanel DO LAB BLOOD ORDERABLES Edited Resu lt - Final Performing Organization Address City/[facility] Co de Phone Number [facility] [place] [address] * (ABNORMAL) CBC without differential (11/28/2024 1:40 PM SPACE SCHEDULER) Pathologist [facility] WBC 7.7 3.8 - 9.9 K/cumm Hgb 11.3(L) 13.0 - 17.5 g/dL [facility] Hct 34.6(L) 38.9 - 50.3 % [facility] Plt 409(H) 150 - 400 K/cumm [facility] MPV 9.7 9.1 - 12.3 fL [facility] RBC 3.25(L) 4.30 - 5.80 M/cumm [facility] MCV 106.5(H) 81.3 - 96.4 fL [facility] MCH 34.8(H) 27.1 - 33.3 pg [facility] MCHC 32.7 32.3 - 35.7 g/dL [facility] RDW CV 14.5 11.1 - 14.9 % [facility] RDW SD 56.7(H) 35.7 - 48.1 fL [facility] NRBC abs 0.04(H) 0.00 - 0.01 K/cumm [facility] Blood 11/28/2024 1:40 PM SPACE SCHEDULER 11/28/2024 1:46 PM SPACE SCHEDULER us Juan A Chanel DO LAB BLOOD ORDERABLES Final Resul t Performing Organization Address City/[facility]/ZIP Co de Phone Number [facility] [place] [address] * Type and screen (11/28/2024 1:40 PM SPACE SCHEDULER) Pathologist [facility] ABO Rh A Positive Ursula, indirect Negative [facility] Blood 11/28/2024 1:40 PM SPACE SCHEDULER 11/28/2024 1:49 PM SPACE SCHEDULER Narrative [facility] - 11/28/2024 2:38 PM SPACE SCHEDULER Has the patient had Daratumumab or Isatuximab in the past 6 months?->Unknown [facility] LAB BLOOD BANK TEST ORDERABLES F inal Result [facility] [place] [address] * (ABNORMAL) Uric acid (11/28/2024 1:40 PM SPACE SCHEDULER) [facility] Uric acid 2.9(L) 3.0 - 8.0 mg/dL Blood 11/28/2024 1:40 PM SPACE SCHEDULER 11/28/2024 1:46 PM SPACE SCHEDULER [facility] LAB BLOOD ORDERABLES Final Resul t Performing Organization Address [facility]/ZIP Co de Phone Number [facility] Department [place] [address] * Phosphorus (11/28/2024 1:40 PM SPACE SCHEDULER) Pathologist [facility] Phosphorus, pl 2.4 2.3 - 4.5 mg/dL Blood 11/28/2024 1:40 PM SPACE SCHEDULER 11/28/2024 1:46 PM SPACE SCHEDULER [facility] LAB BLOOD ORDERABLES Final Resul t Performing Organization Address [facility] Co de Phone Number [facility] Department [place] [address] * Magnesium (11/28/2024 1:40 PM SPACE SCHEDULER) Pathologist [facility] Magnesium 1.7 1.4 - 2.5 mg/dL Blood 11/28/2024 1:40 PM SPACE SCHEDULER 11/28/2024 1:46 PM SPACE SCHEDULER Juan A Chanel DO LAB BLOOD ORDERABLES Final Resul t Performing Organization Address City/[facility] Co de Phone Number [facility] [place] [address] * Lactate dehydrogenase (LD) (11/28/2024 1:40 PM SPACE SCHEDULER) Lactate dehydrogenase (LDH) 226 100 - 250 Units/L Blood 11/28/2024 1:40 PM SPACE SCHEDULER 11/28/2024 1:46 PM SPACE SCHEDULER Dominiquealeah Chanel DO LAB BLOOD ORDERABLES Final Resul t Performing Organization Address [facility] de Phone Number [facility] [place] [address] * (ABNORMAL) Comprehensive metabolic panel (11/28/2024 1:40 PM SPACE SCHEDULER) Pathologist [facility] Sodium 139 135 - 145 mmol/L Potassium, pl 3.8 3.3 - 4.9 mmol/L [facility] Chloride 98 97 - 110 mmol/L [facility] CO2 37(H) 22 - 32 mmol/L [facility] Anion gap 4 2 - 15 mmol/L [facility] BUN 17 6 - 25 mg/dL [facility] Creatinine 0.85 0.80 - 1.30 mg/dL [facility] Glucose 74 70 - 199 mg/dL [facility] Comment: Interpretive Data Fasting glucose [...] 2022. Calcium 9.1 8.5 - 10.3 mg/dL [facility] Bilirubin, total 0.2 0.1 - 1.2 mg/dL [facility] Protein, pl 6.7 6.5 - 8.5 g/dL [facility] Albumin 3.6 3.5 - 5.0 g/dL [facility] Alk phos 120 40 - 130 Units/L [facility] ALT 36 7 - 55 Units/L [facility] AST 32 10 - 50 Units/L [facility] Blood 11/28/2024 1:40 PM SPACE SCHEDULER 11/28/2024 1:46 PM SPACE SCHEDULER [facility] LAB BLOOD ORDERABLES Final Resul t Performing Organization Address City/[facility] de Phone Number [facility] [place] [place] [address] * aPTT (11/28/2024 1:32 PM SPACE SCHEDULER) aPTT 34 28 - 38 sec Comment: Interpretive Data Heparin therapeutic range: 66.0 - 100.0 seconds. Range based on correlation with therapeutic heparin activity range of 0.3 - 0.7 Units/mL. Current interpretive data was last revised on 2023. Blood 11/28/2024 1:32 PM SPACE SCHEDULER 11/28/2024 1:39 PM SPACE SCHEDULER [facility] LAB BLOOD ORDERABLES Final Resul t [facility] [place] [address] * Protime-INR (11/28/2024 1:32 PM SPACE SCHEDULER) PT 12.6 9.7 - 13.0 sec INR 1.16 0.90 - 1.20 [facility] Comment: Interpretive data Oral anticoagulant therapeutic ranges: Venous thromboembolism prophylaxis or treatment: 2.0-3.0 CARDIOLOGY Standard range: 2.0-3.0 High-intensity range: 2.5-3.5 Refer to indication-specific guidelines for appropriate target ranges for prosthetic heart valve replacement. Current interpretive data was last revised on 2019. Blood 11/28/2024 1:32 PM SPACE SCHEDULER 11/28/2024 1:39 PM SPACE SCHEDULER Juan A Chanel DO LAB BLOOD ORDERABLES Final Resul t Performing Organization Address [facility] de Phone Number [facility] Department [place] [address] * (ABNORMAL) Fibrinogen (11/28/2024 1:32 PM SPACE SCHEDULER) Fibrinogen 561(H) 170 - 400 mg/dL Blood 11/28/2024 1:32 PM SPACE SCHEDULER 11/28/2024 1:39 PM SPACE SCHEDULER Juan A Chanel DO LAB BLOOD ORDERABLES Final Resul t Performing Organization Address [facility] de Phone Number [facility] [email or web address] [address] * (ABNORMAL) POCT glucose (11/18/2024 11:20 AM SPACE SCHEDULER) Glucose, POC 201(H) 70 - 199 mg/dL Comment:Glu2: RN/MD Notified Glucose comment 1 Glu2: RN/MD Notified [facility] Blood 11/18/2024 11:2 0 AM SPACE SCHEDULER 11/18/2024 11:20 AM SPACE SCHEDULER Cruz Redding MD PhD LAB POCT ORDERABLES - DEVICE Final Result Performing Organization Address [facility] de Phone Number [facility] [email or web address] [address] * POCT glucose (11/18/2024 7:30 AM SPACE SCHEDULER) Glucose, POC 148 70 - 199 mg/dL Blood 11/18/2024 7:30 AM SPACE SCHEDULER 11/18/2024 7:30 AM SPACE SCHEDULER Cruz Redding MD PhD LAB POCT ORDERABLES - DEVICE Final Result [facility] [place] [address] * POCT glucose (11/18/2024 4:25 AM SPACE SCHEDULER) Glucose, POC 146 70 - 199 mg/dL Blood 11/18/2024 4:25 AM SPACE SCHEDULER 11/18/2024 4:25 AM SPACE SCHEDULER Cruz Redding MD PhD LAB POCT ORDERABLES - DEVICE Final Result Performing Organization Address [facility] Co de Phone Number [facility] [place] [address] * eGFR (11/18/2024 2:38 AM SPACE SCHEDULER) eGFR >90 >=60 mL/min/1. 73 m2 Comment: [...] last reviewed 2021. Blood 11/18/2024 2:38 AM SPACE SCHEDULER 11/18/2024 3:24 AM SPACE SCHEDULER us Josué Del Valle MD PhD LAB BLOOD ORDERABLES Fin al Result [facility] [address] Department [place] [address] * (ABNORMAL) Manual Differential (11/18/2024 2:38 AM SPACE SCHEDULER) Differential Manual Cells Counted 116 [facility] Neutrophil abs 3.4 1.5 - 6.5 K/cumm [facility] Imm gran abs 0.0 0.0 - 0.1 K/cumm [facility] Lymphocyte abs 2.2 0.8 - 3.3 K/cumm [facility] Monocyte abs 0.3 0.2 - 0.8 K/cumm [facility] Eosinophil abs 0.5 0.0 - 0.5 K/cumm [facility] Basophil abs 0.1 0.0 - 0.1 K/cumm [facility] Neutrophil pct 52.6 % [facility] Comment: Interpretive Data Percent cell count reference ranges are not reported, since discordance with absolute values may lead to misinterpretation of CBC data. Current Interpretive Data was last revised on 2018. Lymphocyte pct 33.6 % [facility] Comment: Interpretive Data Percent cell count reference ranges are not reported, since discordance with absolute values may lead to misinterpretation of CBC data. Current Interpretive Data was last revised on 2018. Monocyte pct 4.3 % [facility] Comment: Interpretive Data Percent cell count reference ranges are not reported, since discordance with absolute values may lead to misinterpretation of CBC data. Current Interpretive Data was last revised on 2018. Eosinophil pct 7.8 % [facility] Comment: Interpretive Data Percent cell count reference ranges are not reported, since discordance with absolute values may lead to misinterpretation of CBC data. Current Interpretive Data was last revised on 2018. Basophil pct 1.7 % [facility] Comment: Interpretive Data Percent cell count reference ranges are not reported, since discordance with absolute values may lead to misinterpretation of CBC data. Current Interpretive Data was last revised on 2018. RBC morphology Present(A) [facility] Anisocytosis Slight(A) [facility] Macrocytes 3-7/HPF(A) [facility] Platelet estimate Adequate [facility] Blood 11/18/2024 2:38 AM SPACE SCHEDULER 11/18/2024 3:24 AM SPACE SCHEDULER Jousé Del Valle MD PhD LAB BLOOD ORDERABLES Fin al Result Performing Organization Address [facility] de Phone Number [facility] Department [place] [address] * (ABNORMAL) CBC without differential (11/18/2024 2:38 AM SPACE SCHEDULER) WBC 6.4 3.8 - 9.9 K/cumm Hgb 9.9(L) 13.0 - 17.5 g/dL [facility] Hct 30.0(L) 38.9 - 50.3 % [facility] Plt 254 150 - 400 K/cumm [facility] MPV 10.5 9.1 - 12.3 fL [facility] RBC 2.83(L) 4.30 - 5.80 M/cumm [facility] MCV 106.0(H) 81.3 - 96.4 fL [facility] MCH 35.0(H) 27.1 - 33.3 pg [facility] MCHC 33.0 32.3 - 35.7 g/dL [facility] RDW CV 14.8 11.1 - 14.9 % [facility] RDW SD 58.4(H) 35.7 - 48.1 fL [facility] NRBC abs 0.00 0.00 - 0.01 K/cumm [facility] Blood 11/18/2024 2:38 AM SPACE SCHEDULER 11/18/2024 3:24 AM SPACE SCHEDULER Josué Del Valle MD PhD LAB BLOOD ORDERABLES Fin al Result Performing Organization Address [facility]/ZIP Co de Phone Number [facility] Department [place] [address] * Phosphorus (11/18/2024 2:38 AM SPACE SCHEDULER) [facility] Phosphorus, pl 3.2 2.3 - 4.5 mg/dL Blood 11/18/2024 2:38 AM SPACE SCHEDULER 11/18/2024 3:24 AM SPACE SCHEDULER Josué Del Valle MD PhD LAB BLOOD ORDERABLES Fin al Result Performing Organization Address City/[facility]/ZIP Co de Phone Number [facility] [place] [address] * Magnesium (11/18/2024 2:38 AM SPACE SCHEDULER) [facility] Magnesium 1.9 1.4 - 2.5 mg/dL Blood 11/18/2024 2:38 AM SPACE SCHEDULER 11/18/2024 3:24 AM SPACE SCHEDULER Josué Del Valle MD PhD LAB BLOOD ORDERABLES Fin al Result Performing Organization Address City/[facility] de [place] [address] * (ABNORMAL) Basic metabolic panel (11/18/2024 2:38 AM SPACE SCHEDULER) [facility] Sodium 143 135 - 145 mmol/L Potassium, pl 4.1 3.3 - 4.9 mmol/L [facility] Chloride 104 97 - 110 mmol/L [facility] CO2 32 22 - 32 mmol/L [facility] Anion gap 7 2 - 15 mmol/L [facility] BUN 20 6 - 25 mg/dL [facility] Creatinine 0.78(L) 0.80 - 1.30 mg/dL [facility] Glucose 117 70 - 199 mg/dL [facility] Comment: Interpretive Data Fasting glucose [...] 2022. Calcium 8.3(L) 8.5 - 10.3 mg/dL [facility] Blood 11/18/2024 2:38 AM SPACE SCHEDULER 11/18/2024 3:24 AM SPACE SCHEDULER Narrative [facility] - 11/18/2024 3:55 AM SPACE SCHEDULER Daily except Saturday and . Morning draw. us Josué Del Valle MD PhD LAB BLOOD ORDERABLES Fin al Result Performing Organization Address [facility] Co de Phone Number [facility] Department [place] [address] * POCT glucose (11/18/2024 12:47 AM SPACE SCHEDULER) Glucose, POC 125 70 - 199 mg/dL Blood 11/18/2024 12:4 7 AM SPACE SCHEDULER 11/18/2024 12:47 AM SPACE SCHEDULER us Cruz Redding MD PhD LAB POCT ORDERABLES - DEVICE Final Result Performing Organization Address [facility] de Phone Number [facility] Department [place] [address] * POCT glucose (11/17/2024 8:11 PM SPACE SCHEDULER) Glucose, POC 135 70 - 199 mg/dL Blood 11/17/2024 8:11 PM SPACE SCHEDULER 11/17/2024 8:11 PM SPACE SCHEDULER Cruz Redding MD PhD LAB POCT ORDERABLES - DEVICE Final Result Performing Organization Address [facility] de Phone Number [facility] Department [place] [address] * (ABNORMAL) POCT glucose (11/17/2024 5:32 PM SPACE SCHEDULER) Glucose, POC 229(H) 70 - 199 mg/dL Blood 11/17/2024 5:32 PM SPACE SCHEDULER 11/17/2024 5:32 PM SPACE SCHEDULER us Cruz Redding MD PhD LAB POCT ORDERABLES - DEVICE Final Result Performing Organization Address City/[facility]/ZIP Co [place] [address] * POCT glucose (11/17/2024 12:03 PM SPACE SCHEDULER) Glucose, POC 156 70 - 199 mg/dL Blood 11/17/2024 12:0 3 PM SPACE SCHEDULER 11/17/2024 12:03 PM SPACE SCHEDULER us Cruz Redding MD PhD LAB POCT ORDERABLES - DEVICE Final Result Performing Organization Address City/[facility]/ZIP Co [place] [address] * POCT glucose (11/17/2024 11:14 AM SPACE SCHEDULER) Glucose, POC 174 70 - 199 mg/dL Blood 11/17/2024 11:1 4 AM SPACE SCHEDULER 11/17/2024 11:14 AM SPACE SCHEDULER Cruz Redding MD PhD LAB POCT ORDERABLES - DEVICE Final Result Performing Organization Address City/[facility]/ZIP Co [place] [address] * POCT glucose (11/17/2024 7:19 AM SPACE SCHEDULER) Glucose, POC 126 70 - 199 mg/dL Blood 11/17/2024 7:19 AM SPACE SCHEDULER 11/17/2024 7:19 AM SPACE SCHEDULER Cruz Redding MD PhD LAB POCT ORDERABLES - DEVICE Final Result Performing Organization Address [facility] de Phone Number [facility] [email or web address] [address] * POCT glucose (11/17/2024 4:32 AM SPACE SCHEDULER) Glucose, POC 159 70 - 199 mg/dL Blood 11/17/2024 4:32 AM SPACE SCHEDULER 11/17/2024 4:32 AM SPACE SCHEDULER Cruz Redding MD PhD LAB POCT ORDERABLES - DEVICE Final Result Performing Organization Address [facility] de Phone Number [facility] [email or web address] [address] * POCT glucose (11/17/2024 12:33 AM SPACE SCHEDULER) Glucose, POC 178 70 - 199 mg/dL Blood 11/17/2024 12:3 3 AM SPACE SCHEDULER 11/17/2024 12:33 AM SPACE SCHEDULER Cruz Redding MD PhD LAB POCT ORDERABLES - DEVICE Final Result Performing Organization Address [facility] de Phone Number [facility] [email or web address] [address] * eGFR (11/17/2024 12:31 AM SPACE SCHEDULER) eGFR >90 >=60 mL/min/1. 73 m2 Comment: [...] reviewed 2021. Blood 11/17/2024 12:3 1 AM SPACE SCHEDULER 11/17/2024 12:53 AM SPACE SCHEDULER us Josué Del Valle MD PhD LAB BLOOD ORDERABLES Fin al Result [facility] [address] [place] [address] * (ABNORMAL) Manual Differential (11/17/2024 12:31 AM SPACE SCHEDULER) Differential Manual Cells Counted 114 [facility] Neutrophil abs 3.4 1.5 - 6.5 K/cumm [facility] Imm gran abs 0.1 0.0 - 0.1 K/cumm [facility] Lymphocyte abs 2.3 0.8 - 3.3 K/cumm [facility] Monocyte abs 0.6 0.2 - 0.8 K/cumm [facility] Eosinophil abs 0.2 0.0 - 0.5 K/cumm [facility] Neutrophil pct 50.9 % [facility] Comment: Interpretive Data Percent cell count reference ranges are not reported, since discordance with absolute values may lead to misinterpretation of CBC data. Current Interpretive Data was last revised on 2018. Lymphocyte pct 35.1 % [facility] Comment: Interpretive Data Percent cell count reference ranges are not reported, since discordance with absolute values may lead to misinterpretation of CBC data. Current Interpretive Data was last revised on 2018. Monocyte pct 9.6 % [facility] Comment: Interpretive Data Percent cell count reference ranges are not reported, since discordance with absolute values may lead to misinterpretation of CBC data. Current Interpretive Data was last revised on 2018. Eosinophil pct 3.5 % [facility] Comment: Interpretive Data Percent cell count reference ranges are not reported, since discordance with absolute values may lead to misinterpretation of CBC data. Current Interpretive Data was last revised on 2018. Promyelocyte pct 0.9 % [facility] RBC morphology Present(A) [facility] Anisocytosis Marked(A) [facility] Macrocytes > 15/HPF(A) [facility] Platelet estimate Adequate [facility] Blood 11/17/2024 12:3 1 AM SPACE SCHEDULER 11/17/2024 12:49 AM SPACE SCHEDULER us Josué Del Valle MD PhD LAB BLOOD ORDERABLES Arun tamiko Result - Final [facility] [address] [place] [address] * (ABNORMAL) CBC without differential (11/17/2024 12:31 AM SPACE SCHEDULER) WBC 6.6 3.8 - 9.9 K/cumm Hgb 11.6(L) 13.0 - 17.5 g/dL [facility] Hct 35.3(L) 38.9 - 50.3 % [facility] Plt 307 150 - 400 K/cumm [facility] MPV 10.5 9.1 - 12.3 fL [facility] RBC 3.38(L) 4.30 - 5.80 M/cumm [facility] MCV 104.4(H) 81.3 - 96.4 fL [facility] MCH 34.3(H) 27.1 - 33.3 pg [facility] MCHC 32.9 32.3 - 35.7 g/dL [facility] RDW CV 14.7 11.1 - 14.9 % [facility] RDW SD 56.7(H) 35.7 - 48.1 fL [facility] NRBC abs 0.00 0.00 - 0.01 K/cumm [facility] Blood 11/17/2024 12:3 1 AM SPACE SCHEDULER 11/17/2024 12:49 AM SPACE SCHEDULER Josué Del Valle MD PhD LAB BLOOD ORDERABLES Fin al Result Performing Organization Address [facility] de Phone Number [facility] [email or web address] [address] * Uric acid (11/17/2024 12:31 AM SPACE SCHEDULER) Uric acid 6.0 3.0 - 8.0 mg/dL Blood 11/17/2024 12:3 1 AM SPACE SCHEDULER 11/17/2024 12:46 AM SPACE SCHEDULER us Cruz Redding MD PhD LAB BLOOD ORDERABLE S Final Result Performing Organization Address [facility] [place] [address] * Phosphorus (11/17/2024 12:31 AM SPACE SCHEDULER) Phosphorus, pl 2.7 2.3 - 4.5 mg/dL Blood 11/17/2024 12:3 1 AM SPACE SCHEDULER 11/17/2024 12:46 AM SPACE SCHEDULER Josué Del Valle MD PhD LAB BLOOD ORDERABLES Fin al Result Performing Organization Address [facility] Phone Number [facility] [email or web address] [address] * Magnesium (11/17/2024 12:31 AM SPACE SCHEDULER) Magnesium 1.9 1.4 - 2.5 mg/dL Blood 11/17/2024 12:3 1 AM SPACE SCHEDULER 11/17/2024 12:46 AM SPACE SCHEDULER Josué Del Valle MD PhD LAB BLOOD ORDERABLES Fin al Result Performing Organization Address [facility] de Phone Number [facility] [email or web address] [address] * Lactate dehydrogenase (LD) (11/17/2024 12:31 AM SPACE SCHEDULER) [facility] Lactate dehydrogenase (LDH) 220 100 - 250 Units/L Blood 11/17/2024 12:3 1 AM SPACE SCHEDULER 11/17/2024 12:46 AM SPACE SCHEDULER Cruz Redding MD PhD LAB BLOOD ORDERABLE S Final Result Performing Organization Address [facility] de [place] Number [place] [address] * (ABNORMAL) Hemoglobin A1c (11/17/2024 12:31 AM SPACE SCHEDULER) [facility] Hgb A1C 6.0(H) 4.0 - 5.6 % Estimated Average Glucose 126 mg/dL [facility] Comment: The ADA recommends reporting an estimated Average Glucose (eAG) with all Hemoglobin A1c results using the equation derived from a study of 507 normal and diabetic adults. Minority populations were underrepresented and children were not included. (Diabetes Care 2020; 43(S1): S66-S76). The eAG is not equivalent to a fasting glucose. Blood 11/17/2024 12:3 1 AM SPACE SCHEDULER 11/17/2024 12:52 AM SPACE SCHEDULER Narrative [facility] - 11/17/2024 5:28 PM SPACE SCHEDULER Reflex Cruz Redding MD PhD LAB BLOOD ORDERABLE S Final Result Performing Organization Address [facility] Co de Phone Number [facility] [email or web address] [address] * (ABNORMAL) Basic metabolic panel (11/17/2024 12:31 AM SPACE SCHEDULER) [facility] Sodium 142 135 - 145 mmol/L Potassium, pl 3.9 3.3 - 4.9 mmol/L [facility] Chloride 101 97 - 110 mmol/L [facility] CO2 33(H) 22 - 32 mmol/L [facility] Anion gap 8 2 - 15 mmol/L [facility] BUN 20 6 - 25 mg/dL [facility] Creatinine 0.66(L) 0.80 - 1.30 mg/dL [facility] Glucose 166 70 - 199 mg/dL [facility] Comment: Interpretive Data Fasting glucose [...] 2022. Calcium 9.4 8.5 - 10.3 mg/dL [facility] Blood 11/17/2024 12:3 1 AM SPACE SCHEDULER 11/17/2024 12:46 AM SPACE SCHEDULER Narrative [facility] - 11/17/2024 1:32 AM SPACE SCHEDULER Daily except Saturday and . Morning draw. us Josué Del Valle MD PhD LAB BLOOD ORDERABLES Fin al Result Performing Organization Address City/[facility]/ZIP Co de Phone Number [facility] [email or web address] [address] * (ABNORMAL) POCT glucose (11/16/2024 8:43 PM SPACE SCHEDULER) [facility] Glucose, POC 231(H) 70 - 199 mg/dL Blood 11/16/2024 8:43 PM SPACE SCHEDULER 11/16/2024 8:43 PM SPACE SCHEDULER us Cruz Redding MD PhD LAB POCT ORDERABLES - DEVICE Final Result Performing Organization Address City/[facility]/ZIP Co de Phone Number [facility] Department [place] [address] * POCT glucose (11/16/2024 5:06 PM SPACE SCHEDULER) Glucose, POC 120 70 - 199 mg/dL Blood 11/16/2024 5:06 PM SPACE SCHEDULER 11/16/2024 5:06 PM SPACE SCHEDULER us Cruz Redding MD PhD LAB POCT ORDERABLES - DEVICE Final Result [facility] Department [place] [address] * Surgical pathology (11/16/2024 4:53 PM SPACE SCHEDULER) Tissue (Esophageal biopsy) 11/16/2024 4:53 PM SPACE SCHEDULER Narrative PATHOLOGY [facility] - 11/17/2024 3:51 PM SPACE SCHEDULER EPIC results best viewed via link to PDF [facility] Ramonita Jaramillo Laboratory [place] [address] Note to Patients: This report may contain [...] Gender: Aris : 1965 (Age: 59) Address: [address] [place] [id number] Hospital #: [id number] Taken:11/16/2024 Received:11/16/2024 Reported: 11/17/2024 Patient Type: [facility] Inpatient Service: Gastroenterology Location: [facility] [address] Physician(s): MD Kirt Romero DO Kellie Hughes, M.D. Diagnosis: A. Esophagus, distal, biopsy - Cardia-type gastric mucosa with intestinal metaplasia - Negative for dysplasia clma/11/17/2024 13:31 By [...] Surgical Pathology and Flow Cytometry Departments at [facility] as part of an ongoing quality control tester program and in compliance with federally mandated [...] Surgical Pathology and Flow Cytometry Departments of [facility]. It has not been cleared or approved by the U. S. Food and Drug Administration. IMAGES AND SCANNED DOCUMENTS, IF INCLUDED, ONLY VIEWABLE IN PDF VERSION OF REPORT us Hany Martinez MD LAB PATHOLOGY ORDERABLES Final Result PATHOLOGY [facility] [address] [place] [phone] * EGD (11/16/2024 4:05 PM SPACE SCHEDULER) Anatomical Region Laterality Modality Other Narrative Procedure Note Hany Martinez MD - 11/16/2024 4:05 PM [facility] Patient Name: Bri Jones Procedure Date: 11/16/2024 4:05 PM Date of : 1965 Admit Type: Outpatient Age: 59 Gender: Male Attending MD: Hany Martinez M.D. Room: [facility] Note Status: Finalized Procedure: Upper [...] passed under direct vision. The [id number] [id number] endoscope was introduced through the mouth, and [...] ult * POCT glucose (11/16/2024 3:54 PM SPACE SCHEDULER) Glucose, POC 118 70 - 199 mg/dL Blood 11/16/2024 3:54 PM SPACE SCHEDULER 11/16/2024 3:54 PM SPACE SCHEDULER us Cruz Redding MD PhD LAB POCT ORDERABLES - DEVICE Final Result Performing Organization Address [facility] Co de Phone Number [facility] Department [place] [address] * POCT glucose (11/16/2024 11:37 AM SPACE SCHEDULER) Glucose, POC 129 70 - 199 mg/dL Blood 11/16/2024 11:3 7 AM SPACE SCHEDULER 11/16/2024 11:37 AM SPACE SCHEDULER us Cruz Redding MD PhD LAB POCT ORDERABLES - DEVICE Final Result Performing Organization Address [facility] de Phone Number [facility] Department [place] [address] * CT Chest Abdomen W Contrast (11/16/2024 10:32 AM SPACE SCHEDULER) Anatomical Region Laterality Modality Body N/A Computed Tomogra phy 11/16/2024 11:0 1 AM SPACE SCHEDULER Impressions 11/16/2024 11:01 AM SPACE SCHEDULER 1. Two areas of segmental thickening of [...] Dominique Richmond M.D. 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 Patient has erosive esophagitis presenting with [...] post stem cell transplant in 2009 with [id number] disease. Patient has erosive esophagitis presenting with [...] t * POCT glucose (11/16/2024 7:57 AM SPACE SCHEDULER) Glucose, POC 118 70 - 199 mg/dL Blood 11/16/2024 7:57 AM SPACE SCHEDULER 11/16/2024 7:57 AM SPACE SCHEDULER us Cruz Redding MD PhD LAB POCT ORDERABLES - DEVICE Final Result Performing Organization Address [facility]/ZIP Co de Phone Number [facility] [email or web address] [address] * POCT glucose (11/16/2024 3:55 AM SPACE SCHEDULER) [facility] Signature Glucose, POC 123 70 - 199 mg/dL Blood 11/16/2024 3:55 AM SPACE SCHEDULER 11/16/2024 3:55 AM SPACE SCHEDULER us Josué Del Valle MD PhD LAB POCT ORDERABLES - DE VICE Final Result Performing Organization Address City/[facility]/ZIP Co de Phone Number [facility] [email or web address] [address] * eGFR (11/16/2024 3:38 AM SPACE SCHEDULER) [facility] eGFR >90 >=60 mL/min/1. 73 m2 Comment: [...] last reviewed 2021. Blood 11/16/2024 3:38 AM SPACE SCHEDULER 11/16/2024 4:26 AM SPACE SCHEDULER Josué Del Valle MD PhD LAB BLOOD ORDERABLES Fin al Result Performing Organization Address [facility] de Phone Number [facility] [email or web address] [address] * aPTT (11/16/2024 3:38 AM SPACE SCHEDULER) aPTT 36 28 - 38 sec Comment: Interpretive Data Heparin therapeutic range: 66.0 - 100.0 seconds. Range based on correlation with therapeutic heparin activity range of 0.3 - 0.7 Units/mL. Current interpretive data was last revised on 2023. Blood 11/16/2024 3:38 AM SPACE SCHEDULER 11/16/2024 4:24 AM SPACE SCHEDULER Josué Del Valle MD PhD LAB BLOOD ORDERABLES Fin al Result Performing Organization Address City/[facility] Co de Phone Number [facility] [email or web address] [address] * (ABNORMAL) Fibrinogen (11/16/2024 3:38 AM SPACE SCHEDULER) Pathologist [facility] Fibrinogen 771(H) 170 - 400 mg/dL Blood 11/16/2024 3:38 AM SPACE SCHEDULER 11/16/2024 4:24 AM SPACE SCHEDULER Josué Del Valle MD PhD LAB BLOOD ORDERABLES Fin al Result Performing Organization Address City/[facility]/ZIP Co de Phone Number [facility] Department [place] [address] * Type and screen (11/16/2024 3:38 AM SPACE SCHEDULER) [facility] Ursula, indirect Negative ABO Rh A Positive [facility] Blood 11/16/2024 3:38 AM SPACE SCHEDULER 11/16/2024 4:18 AM SPACE SCHEDULER Narrative [facility] - 11/16/2024 5:10 AM SPACE SCHEDULER Has the patient had Daratumumab or Isatuximab in the past 6 months?->Unknown Josué Del Valle MD PhD LAB BLOOD BANK TEST ORDE RABLES Final Result Performing Organization Address [facility] Co de Phone Number [facility] [place] [address] * Uric acid (11/16/2024 3:38 AM SPACE SCHEDULER) [facility] Uric acid 5.8 3.0 - 8.0 mg/dL Blood 11/16/2024 3:38 AM SPACE SCHEDULER 11/16/2024 4:26 AM SPACE SCHEDULER Josué Del Valle MD PhD LAB BLOOD ORDERABLES Fin al Result Performing Organization Address City/[facility] Co de [place] [address] * Phosphorus (11/16/2024 3:38 AM SPACE SCHEDULER) Pathologist [facility] Phosphorus, pl 2.9 2.3 - 4.5 mg/dL Blood 11/16/2024 3:38 AM SPACE SCHEDULER 11/16/2024 4:26 AM SPACE SCHEDULER Josué Del Valle MD PhD LAB BLOOD ORDERABLES Fin al Result Performing Organization Address [facility] de Phone Number [facility] [email or web address] [address] * Magnesium (11/16/2024 3:38 AM SPACE SCHEDULER) [facility] Magnesium 1.9 1.4 - 2.5 mg/dL Blood 11/16/2024 3:38 AM SPACE SCHEDULER 11/16/2024 4:26 AM SPACE SCHEDULER Josué Del Valle MD PhD LAB BLOOD ORDERABLES Fin al Result Performing Organization Address [facility] de Phone Number [facility] [email or web address] [address] * Lactate dehydrogenase (LD) (11/16/2024 3:38 AM SPACE SCHEDULER) [facility] Lactate dehydrogenase (LDH) 205 100 - 250 Units/L Blood 11/16/2024 3:38 AM SPACE SCHEDULER 11/16/2024 4:26 AM SPACE SCHEDULER Josué Del Valle MD PhD LAB BLOOD ORDERABLES Fin al Result Performing Organization Address [facility] de [place] [address] * (ABNORMAL) Comprehensive metabolic panel (11/16/2024 3:38 AM SPACE SCHEDULER) [facility] Sodium 142 135 - 145 mmol/L Potassium, pl 4.1 3.3 - 4.9 mmol/L [facility] Chloride 100 97 - 110 mmol/L [facility] CO2 32 22 - 32 mmol/L [facility] Anion gap 10 2 - 15 mmol/L [facility] BUN 20 6 - 25 mg/dL [facility] Creatinine 0.67(L) 0.80 - 1.30 mg/dL [facility] Glucose 129 70 - 199 mg/dL [facility] Comment: Interpretive Data Fasting glucose [...] 2022. Calcium 9.9 8.5 - 10.3 mg/dL [facility] Bilirubin, total 0.4 0.1 - 1.2 mg/dL [facility] Protein, pl 7.7 6.5 - 8.5 g/dL [facility] Albumin 4.0 3.5 - 5.0 g/dL [facility] Alk phos 180(H) 40 - 130 Units/L [facility] ALT 54 7 - 55 Units/L [facility] AST 30 10 - 50 Units/L [facility] Blood 11/16/2024 3:38 AM SPACE SCHEDULER 11/16/2024 4:26 AM SPACE SCHEDULER Narrative [facility] - 11/16/2024 4:58 AM SPACE SCHEDULER Saturday and only. Morning draw. us Josué Del Valle MD PhD LAB BLOOD ORDERABLES Fin al Result [facility] [address] [place] [address] * eGFR (11/16/2024 12:13 AM SPACE SCHEDULER) eGFR >90 >=60 mL/min/1. 73 m2 Comment: [...] reviewed 2021. Blood 11/16/2024 12:1 3 AM SPACE SCHEDULER 11/16/2024 12:32 AM SPACE SCHEDULER us Mark Figueroa MD PhD LAB BLOOD ORDERABLE S Final Result [facility] [address] [place] [address] * Differential, auto (11/16/2024 12:13 AM SPACE SCHEDULER) Neutrophil abs 3.6 1.5 - 6.5 K/cumm Imm gran abs 0.0 0.0 - 0.1 K/cumm [facility] Lymphocyte abs 2.8 0.8 - 3.3 K/cumm [facility] Monocyte abs 0.7 0.2 - 0.8 K/cumm [facility] Eosinophil abs 0.2 0.0 - 0.5 K/cumm [facility] Basophil abs 0.1 0.0 - 0.1 K/cumm [facility] Neutrophil pct 49.1 % [facility] Comment: Interpretive Data Percent cell count reference ranges are not reported, since discordance with absolute values may lead to misinterpretation of CBC data. Current Interpretive Data was last revised on 2018. Imm gran pct 0.4 % [facility] Comment: Interpretive Data Percent cell count reference ranges are not reported, since discordance with absolute values may lead to misinterpretation of CBC data. Current Interpretive Data was last revised on 2018. Lymphocyte pct 37.9 % [facility] Comment: Interpretive Data Percent cell count reference ranges are not reported, since discordance with absolute values may lead to misinterpretation of CBC data. Current Interpretive Data was last revised on 2018. Monocyte pct 8.9 % [facility] Comment: Interpretive Data Percent cell count reference ranges are not reported, since discordance with absolute values may lead to misinterpretation of CBC data. Current Interpretive Data was last revised on 2018. Eosinophil pct 3.0 % [facility] Comment: Interpretive Data Percent cell count reference ranges are not reported, since discordance with absolute values may lead to misinterpretation of CBC data. Current Interpretive Data was last revised on 2018. Basophil pct 0.7 % [facility] Comment: Interpretive Data Percent cell count reference ranges are not reported, since discordance with absolute values may lead to misinterpretation of CBC data. Current Interpretive Data was last revised on 2018. Blood 11/16/2024 12:1 3 AM SPACE SCHEDULER 11/16/2024 12:32 AM SPACE SCHEDULER us Mark Figueroa MD PhD LAB BLOOD ORDERABLE S Final Result [facility] [address] [place] [address] * (ABNORMAL) CBC with auto differential (11/16/2024 12:13 AM SPACE SCHEDULER) WBC 7.3 3.8 - 9.9 K/cumm Hgb 13.1 13.0 - 17.5 g/dL [facility] Hct 39.0 38.9 - 50.3 % [facility] Plt 314 150 - 400 K/cumm [facility] MPV 10.4 9.1 - 12.3 fL [facility] RBC 3.69(L) 4.30 - 5.80 M/cumm [facility] MCV 105.7(H) 81.3 - 96.4 fL [facility] MCH 35.5(H) 27.1 - 33.3 pg [facility] MCHC 33.6 32.3 - 35.7 g/dL [facility] RDW CV 15.1(H) 11.1 - 14.9 % [facility] RDW SD 58.9(H) 35.7 - 48.1 fL [facility] NRBC abs 0.02(H) 0.00 - 0.01 K/cumm [facility] Blood 11/16/2024 12:1 3 AM SPACE SCHEDULER 11/16/2024 12:32 AM SPACE SCHEDULER Mark Figueroa MD PhD LAB BLOOD ORDERABLE S Final Result Performing Organization Address [facility] de Phone Number [facility] [place] [address] * Protime-INR (11/16/2024 12:13 AM SPACE SCHEDULER) Pathologist [facility] PT 10.6 9.7 - 13.0 sec INR 0.98 0.90 - 1.20 [facility] Comment: Interpretive data Oral anticoagulant therapeutic ranges: Venous thromboembolism prophylaxis or treatment: 2.0-3.0 CARDIOLOGY Standard range: 2.0-3.0 High-intensity range: 2.5-3.5 Refer to indication-specific guidelines for appropriate target ranges for prosthetic heart valve replacement. Current interpretive data was last revised on 2019. Blood 11/16/2024 12:1 3 AM SPACE SCHEDULER 11/16/2024 12:35 AM SPACE SCHEDULER Mark Figueroa MD PhD LAB BLOOD ORDERABLE S Final Result Performing Organization Address [facility] Co de Phone Number [facility] [place] [place] [address] * (ABNORMAL) Basic metabolic panel (11/16/2024 12:13 AM SPACE SCHEDULER) Sodium 140 135 - 145 mmol/L Potassium, pl 4.8 3.3 - 4.9 mmol/L [facility] Comment:Hemolyzed; Potassium value may be falsely elevated by as much as 0.3-0.5 mmol/L. Suggest redraw and reanalysis. Chloride 100 97 - 110 mmol/L [facility] CO2 28 22 - 32 mmol/L [facility] Anion gap 12 2 - 15 mmol/L [facility] BUN 19 6 - 25 mg/dL [facility] Creatinine 0.63(L) 0.80 - 1.30 mg/dL [facility] Glucose 133 70 - 199 mg/dL [facility] Comment: Interpretive Data Fasting glucose [...] 2022. Calcium 9.9 8.5 - 10.3 mg/dL [facility] Blood 11/16/2024 12:1 3 AM SPACE SCHEDULER 11/16/2024 12:32 AM SPACE SCHEDULER us Mark Figueroa MD PhD LAB BLOOD ORDERABLE S Final Result [facility] [email or web address] [address] * POCT glucose (11/16/2024 12:12 AM SPACE SCHEDULER) [facility] Signature Glucose, POC 130 70 - 199 mg/dL Blood 11/16/2024 12:1 2 AM SPACE SCHEDULER 11/16/2024 12:12 AM SPACE SCHEDULER us Josué Del Valle MD PhD LAB POCT ORDERABLES - DE VICE Final Result Performing Organization Address City/[facility]/ZIP Co de Phone Number [facility] [email or web address] [address] * Lipid panel (07/14/2024 6:22 PM CDT) [...] Pedro Luis Lance et al. CÉSAR Cardiol. 2019March 18;5(5):540-548. doi: [email or web address] Current Interpretive Data was [...] LAB BLOOD ORDERABLES Final R esult [facility] [address] [facility] [place] [address] * Albumin Creatinine Ratio, Urine (02/28/2022 8:57 AM CDT) Albumin Ur <12.0 mg/L [facility] Comment: Interpretive Data No reference range established. Current interpretive data was last revised 2019. Creatinine Ur 42.0 mg/dL [facility] Comment: Interpretive Data No reference range established. Current interpretive data was last revised 2019. Albumin Creatinine Ratio, Ur <29 1 - 29 mg/g [facility] Urine 02/28/2022 8:57 AM CDT 02/28/2022 1:[address] Montejo MD LAB URINE ORDERABLES Final Resu lt Performing Organization Address City/[facility] Co de Phone Number [facility] [place] [address] * PSA screen (02/04/2017 8:36 AM CDT) PSA-Total 0.7 0.1 - 4.0 ng/mL [facility] Blood specimen (specimen) 02/04/2017 8:36 AM CDT 02/04/2017 9:05 AM CDT us Josué Del Valle MD PhD LAB BLOOD ORDERABLES Fin al Result Performing Organization Address [facility] de Phone Number [facility] [place] [address] from Last 3 Months or Most Recently Relevant to Health Maintenance 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 (gown and gloves) - Vladimir BURRELL, RN 01/06/25 12/23/2024 12/23/2024 Insurance MEDICARE [employer] MEDICARE SOL[employer]IONS [facility] MEDICARE SOLUTIONS MEDICARE SOLUTIONS Advance Directives For more information, please contact: [phone] * Full Code (Latest Code Status on [...] 11:09 PM 08/02/2024 3:41 PM Care Teams Security Auditor Relationship Specialty Start Date End Date Kirt Lindsay DO PCP - General Internal Medicine 02/02/21 Josué Del Valle MD PhD Medical Oncologist/Sustainability Specialist Medical Oncology 08/26/19 Cal Carranza DO [address] [place] [address] Erp Programmer Internal Medicine 06/12/23 Halie Khan MD [address] [address] Game Moderator Critical Care Med 06/12/23 Wilfred Kinsey MD [address] [address] Consulting Physician Gastroenterology 03/02/24
--- OUTSIDE RECORDS SUMMARY | 2025-02-03 18:09 | XMS_ITS | CONTINUITY OF CARE DOCUMENT ---
Author Name arturo morris Address Unknown Organization [facility] Address [address] [facility] [address] [facility] [address] [place] [address] Phone [phone] Care Team Providers Care Flat Optical Element Maker Name Role Phone Thuy Daugherty MD Unavailable [phone] Thuy Daugherty MD Unavailable [phone] INSURANCE PROVIDERS Payer name Policy type / Coverage type [place] red green party ID [facility] DUAL COMPLETE [place]HMO-POS[place] [facility] [id number]
--- OUTSIDE RECORDS SUMMARY | 2025-02-03 18:09 | XMS_ITS | Encounter Summary ---
Author Organization [facility] Address [address] [place] [address] Phone Care Team Providers Care Computer Architect Name Role Phone Kirt Lindsay DO Primary Care Provider +- [phone] Josué Del Valle MD PhD Unavailable +[phone] Halie Khan MD Primary Care Provider [phone] Kirt Lindsay DO Primary Care Provider + [phone] Tay Charlton MD Unavailable [phone] Halie Khan MD Unavailable [phone] StarksAnt goldman MD Unavailable +- [phone] Dillon Calreed Dorado DO Unavailable [phone] Halie Khan MD Unavailable [phone] Wilfred Kinsey MD Unavailable Encounter Details Date Type Department Care Team (Latest Contact Info) Description 12/30/2017 Orders Only [facility] CONVERSION Scanning, Provider Social History Tobacco Use Types Packs/Day Years Used Date Smoking Tobacco: Every Day Sex and Gender Information Value Date Recorded Sex Assigned at Not on file Legal Sex Male 10:48 AM SUPERVISOR ASSEMBLY DEPARTMENT Gender Identity Not on file Sexual Orientation Not on file documented as of this encounter Plan of Treatment Not on file documented as of this encounter Procedures Procedure Name Priority Date/Time Associated Diagnosis Comments PULMONARY FUNCTION TEST (PFT) 12/30/2017 1:11 PM SUPERVISOR ASSEMBLY DEPARTMENT documented in this encounter Results * PULMONARY FUNCTION TEST (PFT) (12/30/2017 1:11 PM SUPERVISOR ASSEMBLY DEPARTMENT) Anatomical Region Laterality Modality PFT us Provider [...] out) Comment:06/18/2024 IP Review: case reviewed by nihkil Lizarraga to come off precautions. Lissy Johnson RN +AFB stain 06/17/2024 06/17/2024 06/18/2024 10:45 AM CDT C. 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 12/16/2024 3:05 AM SUPERVISOR ASSEMBLY DEPARTMENT COVID: Suspected 07/23/2024 07/24/2024 07/24/2024 4:49 AM CDT COVID: Suspected 12/18/2024 12/18/2024 12/18/2024 10:17 PM SUPERVISOR ASSEMBLY DEPARTMENT C. difficile suspected 12/22/2024 12/23/202412/23 5:56 AM SUPERVISOR ASSEMBLY DEPARTMENT VRE Comment:Contact Precautions (gown and gloves) - Vladimir BURRELL, RN 01/06/25 12/23/2024 12/23/2024 documented as of this encounter Care Teams Computer Architect Relationship Specialty Start Date End Date Kirt Lindsay DO PCP - General 05/02/17 11/22/20 Halie Khan MD [address] [address] PCP - General Critical Care Med 11/23/20 02/01/21 Kirt Lindsay DO PCP - General Internal Medicine 02/02/21 Josué Del Valle MD PhD Medical Oncologist/Singing Waiter Or Waitress Medical Oncology 08/26/19 Tay Charlton MD [address] [address] Consulting Physician Gastroenterology 12/03/21 06/11/23 Halie Khan MD [address] [address] Consulting Physician Pulmonary Disease 12/12/21 3 Ant Starks MD [address] [address] Consulting Physician Transplant Hepatology 01/12/22 Cal Carranza DO [address] [address] Continuity Coordinator Internal Medicine 06/12/23 Halie Khan MD [address] [facility] [address] [place] [id number] Instructor Private Critical Care Med 06/12/23 Wilfred Kinsey MD [address] [address] Consulting Physician Gastroenterology 03/02/24 documented as of this encounter
--- OUTSIDE RECORDS SUMMARY | 2025-02-03 18:09 | XMS_ITS | Encounter Summary ---
Author Organization [facility] Address [address] [place] [address] Phone Care Team Providers Care Forestry Worker Name Role Phone Josué Del Valle MD PhD Unavailable [phone] Kirt Lindsay DO Primary Care Provider [phone] Tay Charlton MD Unavailable [phone] Halie Khan MD Unavailable [phone] Ant Starks MD Unavailable [phone] Cal Carranza DO Unavailable [phone] Halie Khan MD Unavailable [phone] Wilfred Kinsey MD Unavailable Encounter Details Date Type Department Care Team (Late st Contact Info) Description 05/18/2021 Telephone [facility] Marrow Transplant [address] [facility] Advanced Medicine 7th Floor, [place] [address] Melody Bolanos V. Social History Tobacco Use Types Packs/Day Years Used Date Smoking Tobacco: Every Day Cigarettes 0.3 39.2 Started: 1984 Smokeless Tobacco: Never Sex and Gender Information Value Date Recorded Sex Assigned at Not on file Legal Sex Male 10:[address] DRIVER Gender Identity Not on file Sexual [...] Review: case reviewed by IP [facility] to come off precautions. Lissy Johnson RN +AFB stain 06/17/2024 06/17/2024 06/18/2024 10:45 AM CDT C. 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 12/16/2024 3:[address] DRIVER COVID: Suspected 07/23/2024 07/24/2024 07/24/2024 4:49 AM CDT COVID: Suspected 12/18/2024 12/18/2024 12/18/2024 10:[address] DRIVER C. difficile suspected 12/22/2024 12/23/202412/23 5:[address] DRIVER VRE Comment:Contact Precautions (gown and gloves) - Vladimir BURRELL, RN 01/06/25 12/23/2024 12/23/2024 documented as of this encounter Care Teams Forestry Worker Relationship Specialty Start Date End Date Kirt Lindsay DO PCP - General Internal Medicine 02/02/21 Josué Del Valle MD PhD Medical Oncologist/Merchandise Adjustment Clerk Medical Oncology 08/26/19 Tay Charlton MD Consulting Physician Gastroenterology 12/03/21 06/11/23 Halie Khan MD [address] [address] Consulting Physician Pulmonary Disease 12/12/21 3 Ant Starks MD [address] [address] Consulting Physician Transplant Hepatology 01/12/22 Cal Carranza DO [address] [address] Classification Clerk Internal Medicine 06/12/23 Halie Khan MD [address] [address] Circulation Sales Representative Critical Care Med 06/12/23 Wilfred Kinsey MD [address] [address] Consulting Physician Gastroenterology 03/02/24 documented as of this encounter
--- OUTSIDE RECORDS SUMMARY | 2025-02-03 18:09 | XMS_ITS | Encounter Summary ---
Author Organization [facility] Address [address] [place] [address] Phone Care Team Providers Care Lotus Notes Developer Name Role Phone Josué Del Valle MD PhD Unavailable [phone] Kirt Lindsay DO Primary Care Provider [phone] Cal Carranza DO Unavailable [phone] Halie Khan MD Unavailable [phone] Wilfred Kinsey MD Unavailable Encounter Details Date Type Department Care Team (Late st Contact Info) Description 03/06/2024 Telephone [facility] Oncology [address] [facility] Advanced Medicine 7th [place] [address] Irina Conrad Social History Tobacco Use Types Packs/Day Years Used Date Smoking Tobacco: Some Days Cigarettes 0.5 40 Started: 1984 Smokeless Tobacco: Never Comments:pt states tried to quit [facility] Utilities Answer Date Recorded In the [...] any clubs o r organizations such as religious groups, unions, fraternal or athletic groups, or [...] slept in a chcf (including now)? No 02/20/2024 Personal Safety Answer Date Recorded Have you ever been in or are you currently in a harmful physical or emotional relationship or is someone making you feel afraid or unsafe? 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 Male 10:48 AM MEDIA INTERN Gender Identity Not on file Sexual [...] CDT 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 12/16/2024 3:05 AM MEDIA INTERN COVID: Suspected 07/23/2024 07/24/2024 07/24/2024 4:49 AM CDT COVID: Suspected 12/18/2024 12/18/2024 12/18/2024 10:17 PM MEDIA INTERN C. difficile suspected 12/22/2024 12/23/202412/23 5:56 AM MEDIA INTERN VRE Comment:Contact Precautions (gown and gloves) - Vladimir BURRELL, RN 01/06/25 12/23/2024 12/23/2024 documented as of this encounter Care Teams Lotus Notes Developer Relationship Specialty Start Date End Date Krit Lindsay DO PCP - General Internal Medicine 02/02/21 Josué Del Valle MD PhD Medical Oncologist/Inductor Tester Medical Oncology 08/26/19 Cal Carranza DO [address] [address] Mounted Police Officer Internal Medicine 06/12/23 Halie Khan MD [address] [address] Clam Bed Worker Critical Care Med 06/12/23 Wilfred Kinsey MD [address] [address] Consulting Physician Gastroenterology 03/02/24 documented as of this encounter
--- OUTSIDE RECORDS SUMMARY | 2025-02-03 18:09 | XMS_ITS | Encounter Summary ---
Author Organization [facility] Address [address] [facility] [address] [place] [address] Phone Care Team Providers Care Multimedia Instructional Designer Name Role Phone Josué Del Valle MD PhD Unavailable [phone] Kirt Lindsay DO Primary Care Provider [phone] Cal Carranza DO Unavailable [phone] Halie Khan MD Unavailable [phone] Wilfred Kinsey MD Unavailable Encounter Details Date Type Department Care Team (Late st Contact Info) Description 08/12/2024 Telephone [facility] Scheduling [address] [place] [address] Irina Conrad Social History Tobacco Use Types Packs/Day Years Used Date Smoking Tobacco: Some Days Cigarettes 0.5 40.6 Started: 1984 Smokeless Tobacco: Never Comments:pt states tried to quit; smoking 5 cigs/wk [facility] Utilities Answer Date Recorded In [...] How often do you attend catholic or spiritism serv ices? Never 07/24/2024 Do [...] time in the past 12 m [facility], were you homeless or living in a correction (including now)? No 07/24/2024 Personal Safety Answer Date Recorded Have you ever been in or are you currently in a harmful physical or emotional relationship or is someone making you feel afraid or unsafe? 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 Male 10:48 AM DERMATOLOGIST AND DERMATOPATHOLOGIST Gender Identity Not on file Sexual Orientation Not on file documented as of this encounter Plan of Treatment Not on file documented as of this encounter Visit Diagnoses Not on filedocumented in this encounter Additional Health Concerns Infection Onset Date 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 12/16/2024 3:05 AM DERMATOLOGIST AND DERMATOPATHOLOGIST COVID: Suspected 12/18/2024 12/18/2024 12/18/2024 10:17 PM DERMATOLOGIST AND DERMATOPATHOLOGIST C. difficile suspected 12/22/2024 12/23/202412/23 5:56 AM DERMATOLOGIST AND DERMATOPATHOLOGIST VRE Comment:Contact Precautions (gown and gloves) - Vladimir HAMILTONN, RN 01/06/25 12/23/2024 12/23/2024 documented as of this encounter Care Teams Multimedia Instructional Designer Relationship Specialty Start Date End Date Kirt Lindsay DO PCP - General Internal Medicine 02/02/21 Josué Del Valle MD PhD Medical Oncologist/Computer Programmer Chief Medical Oncology 08/26/19 Cal Carranza DO [address] [facility] [address] [place] [address] Commercial Finance Analyst Internal Medicine 06/12/23 Halie Khan MD [address] [facility] [address] [place] [address] Oil Burner Journeyman Critical Care Med 06/12/23 Wilfred Kinsey MD [address] [address] Consulting Physician Gastroenterology 03/02/24 documented as of this encounter
--- OUTSIDE RECORDS SUMMARY | 2025-02-03 18:09 | XMS_ITS | Encounter Summary ---
Author Organization [facility] Address [address] [place] [address] Phone Care Team Providers Care Hydro Generation Supervisor Name Role Phone Josué Del Valle MD PhD Unavailable [phone] Kirt Lindsay DO Primary Care Provider [phone] Tay Charlton MD Unavailable [phone] Halie Khan MD Unavailable [phone] Ant Starks MD Unavailable [phone] Cal Carranza DO Unavailable [phone] Halie Khan MD Unavailable [phone] Wilfred Kinsey MD Unavailable Encounter Details Date Type Department Care Team (Late st Contact Info) Description 12/31/2022 Telephone [facility] Oncology [address] [facility] 7th [place] [address] [place] [address] Irina Conrad Social History Tobacco [...] on file Legal Sex Male 10:48 AM ESTIMATOR JEWELRY Gender Identity Not on file Sexual Orientation [...] CDT 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 12/16/2024 3:05 AM ESTIMATOR JEWELRY COVID: Suspected 07/23/2024 07/24/2024 07/24/2024 4:49 AM CDT COVID: Suspected 12/18/2024 12/18/2024 12/18/2024 10:17 PM ESTIMATOR JEWELRY C. difficile suspected 12/22/2024 12/23/202412/23 5:56 AM ESTIMATOR JEWELRY VRE Comment:Contact Precautions (gown and gloves) - Vladimir BURRELL, RN 01/06/25 12/23/2024 12/23/2024 documented as of this encounter Care Teams Hydro Generation Supervisor Relationship Specialty Start Date End Date Kirt Lindsay DO PCP - General Internal Medicine 02/02/21 Josué Del Valle MD PhD Medical Oncologist/Medical Device Sales Medical Oncology 08/26/19 Tay Charlton MD Consulting Physician Gastroenterology 12/03/21 06/11/23 Halie Khan MD [address] [address] Consulting Physician Pulmonary Disease 12/12/21 3 Ant Starks MD [address] [facility] [address] [place] [address] Consulting Physician Transplant Hepatology 01/12/22 Cal Carranza DO [address] [place] [address] Electrician Assistant Internal Medicine 06/12/23 Halie Khan MD [address] [facility] [address] [place] [address] Director Talent Management Critical Care Med 06/12/23 Wilfred Kinsey MD [address] [address] Consulting Physician Gastroenterology 03/02/24 documented as of this encounter
--- OUTSIDE RECORDS SUMMARY | 2025-02-03 18:09 | XMS_ITS | Encounter Summary ---
Author Organization [facility] Address [address] [place] [address] Phone Care Team Providers Care Dramatic Art Teacher Name Role Phone Kirt Lindsay DO Primary Care Provider [phone]- [phone] Josué Del Valle MD PhD Unavailable [phone] Halie Khan MD Primary Care Provider [phone] Kirt Lindsay DO Primary Care Provider + [phone] Tay Charlton MD Unavailable [phone] Halie Khan MD Unavailable [phone] StarksAnt goldman MD Unavailable [phone]- [phone] Dillon Calreed Dorado DO Unavailable [phone] Halie Khan MD Unavailable [phone] Wilfred Kinsey MD Unavailable Encounter Details Date [...] on file Legal Sex Male 10:48 AM SOUND EDITOR Gender Identity Not on file Sexual [...] Comment:06/18/2024 IP Review: case reviewed by IP [facility], [place] to come off precautions. Lissy Johnson RN +AFB stain 06/17/2024 06/17/2024 06/18/2024 10:45 AM CDT C. 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 12/16/2024 3:05 AM SOUND EDITOR COVID: Suspected 07/23/2024 07/24/2024 07/24/2024 4:49 AM CDT COVID: Suspected 12/18/2024 12/18/2024 12/18/2024 10:17 PM SOUND EDITOR C. difficile suspected 12/22/2024 12/23/202412/23 5:56 AM SOUND EDITOR VRE Comment:Contact Precautions (gown and gloves) - Vladimir BURRELL, RN 01/06/25 12/23/2024 12/23/2024 documented as of this encounter Care Teams Dramatic Art Teacher Relationship Specialty Start Date End Date Kirt Lindsay DO PCP - General 05/02/17 11/22/20 Halie Khan MD [address] [place] [address] PCP - General Critical Care Med 11/23/20 02/01/21 Kirt Lindsay DO PCP - General Internal Medicine 02/02/21 Josué Del Valle MD PhD Medical Oncologist/Ship Captain Medical Oncology 08/26/19 Tay Charlton MD [address] [address] Consulting Physician Gastroenterology 12/03/21 06/11/23 Halie Khan MD [address] [address] Consulting Physician Pulmonary Disease 12/12/21 3 Ant Starks MD [address] [place] [address] Consulting Physician Transplant Hepatology 01/12/22 Cal Carranza DO [address] [address] Ruffling Machine Operator Internal Medicine 06/12/23 Halie Khan MD [address] [address] Treating Plant Operator Critical Care Med 06/12/23 Wilfred Kinsey MD [address] [address] Consulting Physician Gastroenterology 03/02/24 documented as of this encounter
[2025-02-03 18:13] LABS: Basophils Absolute Auto 0.1 K/mm3 (0.0-0.1); Basophils Percent Auto 0.8 % (0.2-1.2); Eosinophils Absolute Auto 0.3 K/mm3 (0-0.3); Eosinophils Percent Auto 2.7 % (0-4.4); Hematocrit 40.1 % (42.0-52.0); Hemoglobin 13.5 g/dL (14.0-18.0); Immature Granulocyte Absolute 0.03 K/mm3 (0.00-0.031); Immature Granulocyte Percent A 0.3 % (0-0.5); Lymphocytes Absolute Auto 3.28 K/mm3 (0.9-3.2); Lymphocytes Percent Auto 34.3 % (18.3-44.2); Mean Corpuscular HGB Conc 33.7 g/dl (32-36); Mean Corpuscular Hemoglobin 34.1 pg (26-34); Mean Corpuscular Volume 101.3 fl (80-100); Mean Platelet Volume 10.7 fl (7.4-10.4); Monocytes Absolute Auto 0.9 K/mm3 (0.1-0.6); Monocytes Percent Auto 8.9 % (2.6-8.5); Neutrophils Absolute Auto 5.1 K/mm3 (1.3-6.7); Platelet Count Result 328 k/mm3 (150-375); Red Blood Count 3.96 M/mm3 (4.6-6.20); White Blood Count 9.6 K/mm3 (4.5-10.0)
[2025-02-03] MEDS: IPRATROPIUM BR 0.02% INH SOLN 0.5 MG/2.5 ML VIAL 1.5 MG INHALATION (18:17)
[2025-02-03] MEDS: ALBUTEROL SULFATE NEB 2.5 MG/3 ML INH 15 MG INHALATION (18:18)
[2025-02-03] MEDS: IBUPROFEN IV 400 MG in SODIUM CHLORIDE 0.9% IV 100 ML 208 MG IVPB (18:41)
[2025-02-03 18:46] LABS: Base Excess ABG -2.6 mEq/l (+/-2.0); Carboxyhemoglobin 0.4 % THb (0-2.0); Fractional Inspired Oxygen 100 %; HCO3 ABG 22.4 mEq/l (22.0-26.0); Methemoglobin ABG 0.2 %THb (0-1.5); Oxygen Saturation ABG 99.8 % (95.0-100.0); Oxyhemoglobin 99.1 % THb (90.0-100.0); PCO2 ABG 39.6 mmHg (35.0-45.0); PO2 ABG 435.4 mmHg (80.0-100.0); PO2 FiO2 Ratio Arterial Blood 4.35 %; Reduced Hemoglobin 0.3 %THb (0-5.0); Total Hemoglobin 12.8 g/dL (12.0-18.0)
[2025-02-03 18:48] LABS: Alanine Aminotransferase 20 U/L (6-50); Albumin Level 3.6 g/dL (3.5-5.1); Alkaline Phosphatase 186 U/L (38-126); Anion Gap 6 mmol/L (4-12); Aspartate Amino Transferase 39 U/L (17-59); Bilirubin,Total 0.9 mg/dL (0.2-1.3); Blood Urea Nitrogen 10 mg/dL (9-20); Calcium 9.2 mg/dL (8.4-10.2); Carbon Dioxide 31 mmol/L (22-30); Chloride 95 mmol/L (98-107); Estimated CRCL calculation 87 ml/min; Estimated Glomerular Filt Rate > 60; Glucose 103 mg/dL (65-110); Potassium 5.3 mmol/L (3.4-5.0); Sodium 132 mmol/L (137-145)
[2025-02-03 18:49] LABS: Device NON-INVASIVE VENT; Modified Allen's Test Pass; Site Drawn LEFT RADIAL
[2025-02-03 18:51] LABS: Non-Invasive Expiratory Pressure 6 CMH2O; Non-Invasive Inspiratory Pressure 12 CMH2O; Non-Invasive Vent Rate 4 /MIN
[2025-02-03 19:26] LABS: NT Pro B Type Natriuretic Pept 2890 pg/mL (19.9-100)
[2025-02-03 19:37] LABS: INR 1.1; Prothrombin Time 14.3 Seconds (11.1-14.7)
[2025-02-03 19:38] LABS: Partial Thromboplastin Time 41.2 Seconds (22.3-36.8)
[2025-02-03 20:32] LABS: Influenza A QL RT-PCR Negative (Negative); Influenza B QL RT-PCR Negative (Negative); RSV RNA, RT-PCR Negative (Negative); SARS-CoV-2 RNA PCR Negative (Negative)
--- NOTE | 2025-02-03 21:05 | P.HP_ITS ---
H&P: HPI History of Present Illness Date/Time: 02/03/25 22:00 Chief Complaint: Shortness of breath. 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 The patient provides the following history. He is chronically short of breath at baseline however reports worsening dyspnea on lesser and lesser exertion over the past several days. He has a productive cough which is unchanged. He has been using his inhalers and nebulizers at home without much benefit. He denies fever, chills, sweats, chest pain, pleuritic pain, nausea, vomiting, edema, and calf pain. He has no known sick contacts. EMS administered a nebulizer treatment, magnesium, and Decadron in route to the hospital. In the ED: Vital signs on arrival include a temperature of 100.3? F, blood pressure 108/56, pulse 125, respiratory rate 30, SpO2 90% on 6 L. labs were significant for a hemoglobin of 13.5, MCV 101.3, sodium 132, potassium 5.3, carbon dioxide 31, glucose 150, proBNP 2890. Respiratory panel was negative. Chest CTA was negative for pulmonary embolism and dissection and showed chronic findings. He received another nebulizer treatment and is being admitted in this setting for further treatment. Review of Systems Review of Systems: 12 systems were reviewed and are negativ e except for as per HPI. [facility] Past Medical History Medical History (Updated 02/04/25 @ 01:46 by Leyda Davila PA-C) Type 2 diabetes mellitus Chronic obstructive pulmonary disease Systolic congestive heart failure Pancreatitis Non-tuberculous mycobacterial pneumonia MSSA bacteremia Osteopenia Pseudomonas pneumonia Mycobacterium avium complex Chronic xffij-cyenhl-tcru disease Chronic respiratory failure with hypoxia, on home oxygen therapy Coronary artery disease Pill esophagitis ST elevation (STEMI) myocardial infarction (12/30/22) Chronic anticoagulation Immunocompromised patient patient on anti rejection medications Positive nasal culture for methicillin resistant Staphylococcus aureus Deep venous thrombosis Chronic obstructive pulmonary disease Sciatica Eczema Anxiety Depression Peyronie's disease Emphysema/COPD Acute myeloid leukemia (2008) status post hematopoietic stem cell transplantation with resultant chronic rghys-hvphfn-gqyj disease. 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 Code status: Full code. Years smoked: 44 Smoking status: Current some day smoker Tobacco type: cigarettes Smoking end date: 08/07/22 Additional smoking assessment comments: on nicotine patches, states he is currently on patches Alcohol intake: former Substance use: never Substance use type: does not use Do You Feel Safe in your Home?: Yes Lack of Transportation: No Lack of Food: Never True Current Housing: I Have Housing Concerned About Future Housing: No Difficulty Paying Gas/Electric Bills: No Difficulty Paying for Meds: No Currently Unemployed: No Education: Trade/Vocational Certificate Difficulty w/ Childcare or Family Care: No Living arrangements: with friend(s) Additional living arrangements comments: He lives with his roommate in [place]. Occupation/Education: unemployed Spiritual care concerns: No Agree to blood products: Yes Meds Home Medications and Allergies Home Medications ?Medication ?Instructions ?Recorded ?Confirmed ?Type rivaroxaban 20 mg tablet (Xarelto) 20 mg PO QAM 02/06/23 11/21/24 History acyclovir 400 mg tablet 400 mg PO TID #90 tabs 01/28/24 11/21/24 Rx clopidogrel 75 mg tablet 75 mg PO DAILY #90 tabs 01/28/24 11/21/24 Rx montelukast 10 mg tablet 10 mg PO HS #30 tabs 01/28/24 11/21/24 Rx (Singulair) mycophenolate mofetil 500 mg tablet 1,000 mg (2 x 500 mg) PO Q12H #10 01/28/24 11/21/24 Rx tabs tacrolimus 0.5 mg capsule, 0.5 mg PO EVERY OTHER DAY #30 caps 01/28/24 11/21/24 Rx immediate-release (Prograf) albuterol sulfate 90 mcg/actuation 1 puff inhalation Q4-6H PRN 10/23/24 11/21/24 History aerosol inhaler Shortness Of Breath Or Wheezing ondansetron 4 mg disintegrating 4 mg PO Q8H PRN Nausea And Vomiting 10/23/24 11/21/24 History tablet pantoprazole 40 mg tablet,delayed 40 mg PO Q12H 10/23/24 11/21/24 History release clofazimine 50 mg capsule 100 mg PO DAILY 11/25/24 11/25/24 History ethambutol 400 mg tablet 1,200 mg PO DAILY 11/25/24 11/25/24 History isavuconazonium sulfate 186 mg 372 mg PO DAILY 11/25/24 11/25/24 History capsule (Cresemba) albuterol sulfate 2.5 mg/3 mL See Rx Instructions .Route 01/27/25 Rx (0.083 %) solution for nebulization .COMPLEX #180 mL Allergies Allergy/AdvReac Type Severity Reaction Status Date / Time adhesive tape AdvReac Unknown PAPER Verified 02/03/25 17:34 TAPE,REDNESS AND IRRITATION Vital Signs Vital Signs - 24 hr 02/03/25 17:23 02/03/25 18:01 02/03/25 18:10 Temperature 97.6 F Pulse Rate 132 H 127 H Respiratory Rate 29 H 27 H Blood Pressure 149/95 H Pulse Oximetry 96 88 L 93 Oxygen Delivery Non-Rebreather Mask Non-Rebreather Mask BiPAP Oxygen Flow Rate 15 15 02/03/25 18:12 02/03/25 18:14 02/03/25 18:20 Temperature 100.3 F H Pulse Rate 126 H 125 H 123 H Respiratory Rate 30 H 26 H Blood Pressure 108/56 L Pulse Oximetry 90 Oxygen Delivery Oxygen Flow Rate 02/03/25 18:41 02/03/25 18:42 02/03/25 18:46 Temperature 100.3 F H Pulse Rate 123 H Respiratory Rate 30 H Blood Pressure 80/58 L Pulse Oximetry 98 Oxygen Delivery BiPAP Oxygen Flow Rate 02/03/25 18:51 02/03/25 19:56 02/03/25 19:56 Temperature Pulse Rate 119 H 117 H 117 H Respiratory Rate 28 H 27 H 27 H Blood Pressure 85/67 L Pulse Oximetry 99 100 Oxygen Delivery BiPAP Oxygen Flow Rate 02/03/25 20:53 Temperature Pulse Rate 107 H Respiratory Rate 14 Blood Pressure 148/95 H Pulse Oximetry 94 Oxygen Delivery Oxygen Flow Rate Exam Narrative: General: Thin, chronically ill-appearing male in the semi-Grider position in bed in no acute distress. Weight: 65.9 kg. BMI: 20.8. HEENT: PERRL, EOMI. Sclera anicteric. Oral mucosa is tacky. Neck: Supple. No JVD or lymphadenopathy. Respiratory: Currently on 6 L nasal cannula. Lung sounds are diminished throughout with occasional rhonchi. No significant wheezing. Cardiovascular: Regular rate and rhythm with S1-S2. Gastrointestinal: Abdomen is soft, flat, nontender, and nondistended with positive bowel sounds. Skin: Warm and dry. No rash or lesions on limited exam. Extremities: No cyanosis, clubbing, or edema. Radial and pedal pulses intact. No palpable knots or cords. Neurological: Alert. Cranial nerves 2-12 are grossly intact. No gross focal deficits to casual conversation. Psychiatric: Pleasant and cooperative with appropriate mood and affect. He is in good spirits. H&P: Results Labs Labs: Short CBC 02/03/25 Range/Units 18:04 WBC 9.6 (4.5-10.0) K/mm3 Hgb 13.5 L D (14.0-18.0) g/dL Hct 40.1 L (42.0-52.0) % Plt Count 328 (150-375) k/mm3 BMP 02/03/25 18:04 Sodium 132 L Potassium 5.3 H Chloride 95 L Carbon Dioxide 31 H BUN 10 D Creatinine 0.75 Glucose 103 Calcium 9.2 Liver Function 02/03/25 Range/Units 18:04 Total Bilirubin 0.9 (0.2-1.3) mg/dL AST 39 (17-59) U/L ALT 20 (6-50) U/L Alkaline Phosphatase 186 H (38-126) U/L Albumin 3.6 (3.5-5.1) g/dL Impressions Chest X-Ray 02/03/25 18:28 IMPRESSION: No focal infiltrate or effusion. Chest CTA 02/03/25 23:18 IMPRESSION: No pulmonary embolus. No thoracic aortic dissection. Redemonstration of chronic panlobular emphysematous change with right apical consolidation with cavitary change and pleural-based scarring within the left upper lobe with cavitary change. Assessment and Plan Assessment and plan (1) Acute and chronic respiratory failure with hypoxia: Code(s): J96.21 - Acute and chronic respiratory failure with hypoxia Status: Acute (2) Chronic obstructive pulmonary disease: Code(s): J44.9 - Chronic obstructive pulmonary disease, unspecified Status: Acute (3) Chronic vmtze-vssqnn-dybe disease: Code(s): D89.811 - Chronic olnpe-adenyc-bnxt disease Status: Acute (4) Type 2 diabetes mellitus: Code(s): E11.9 - Type 2 diabetes mellitus without complications Status: Acute (5) Coronary artery disease: Code(s): I25.10 - Atherosclerotic heart disease of [place] coronary artery without angina pectoris Status: Acute (6) Systolic congestive heart failure: Code(s): I50.20 - Unspecified systolic (congestive) heart failure Status: Acute Plan The patient presented to the emergency department for increasing shortness of breath over the last several days as detailed in HPI. Labs, imaging, EKG, and all reports were personally reviewed. He was reportedly not moving much air at all on arrival to the ED and seems to have improved with the nebulizer treatment. We will continue scheduled bronchodilators. Hold on starting steroids as he is already immunocompromised and he does not have any significant wheezing on exam. Given his extensive history (Pseudomonas, MAC) he has been started on antibiotics to cover for possible developing pneumonia as he had a low-grade temperature on arrival. Blood pressures have been variable and I suspect that they are at times inaccurate due to positioning and we will continue to monitor those closely. He looks a bit dry on exam and he will be given fluids overnight as his sodium and chloride are a bit low and potassium is a little high. Diabetes is well controlled with recent A1c less than 6.5%. Initiate sliding scale insulin, Accu-Cheks, and hypoglycemic protocol. No acute issues with regards to his congestive heart failure or coronary artery disease. His home medications will be reviewed and resumed as appropriate. Findings and treatment plan were discussed with the patient. Questions were solicited and answered to satisfaction. The patient's medical management will be taken over by the hospitalist team in a.m. Quality VTE Prophylaxis VTE prophylaxis: pharmacologic ordered (On rivaroxaban) The patient has been admitted under observation status. Hospitalist MIPS Advance Care Plan I have confirmed that the patient's Advanced Care Plan is present, code status is documented, or surrogate decision maker is listed in patient medical record.: Yes Medication Reconciliation I have utilized all available resources to obtain, update and review the patients current medications (includes all prescriptions, OTC, herbals, cannabis, and nutritional supplements).: Yes
[2025-02-03 22:44] LABS: Glucose Point of Care 150 mg/dl (65-105)
[2025-02-04] VITALS (19 sets, daily range): BP systolic 89–114; BP diastolic 53–67; PULSE 80–107; RESP 18–22; TEMP 36.5–36.8; O2SAT 91–100; BMI 67.3; BMI 16.3
[2025-02-04] MEDS: IPRATROPIUM 0.5 MG/ALBUTEROL SULFATE 2.5 MG AMPUL.NEB 3 ML INHALATION ×4 (02:07→21:49)
--- NOTE | 2025-02-04 03:10 | ADMGEN ---
This patient, Brady Jones, was admitted to IMU Room 205-02. Patient/family oriented to hospital policies and general routines including ID bracelet, bed and alarms, visiting hours, pain management, procedures, bathroom and other care routines, personal items, smoking policy, room service/diet, and visiting hours. Information on how to activate the Rapid Response Team has been discussed. Patient/Family are encouraged to report perceived risks to care and to ask questions if they do not understand what they are told or what they should do.
[2025-02-04] MEDS: SODIUM CHLORIDE 0.9% IV 500 ML 75 ML IV CONT (03:32)
[2025-02-04] MEDS: VANCOMYCIN 1,750 MG/NS 500 ML 1,750 MG/500 ML BAG 250 MG IVPB (04:30)
[2025-02-04 04:36] LABS: Hemoglobin 11.4 g/dL (14.0-18.0); Mean Corpuscular HGB Conc 34.5 g/dl (32-36); Mean Corpuscular Hemoglobin 34.3 pg (26-34); Mean Corpuscular Volume 99.4 fl (80-100); Mean Platelet Volume 10.5 fl (7.4-10.4); Platelet Count Result 308 k/mm3 (150-375); Red Blood Count 3.32 M/mm3 (4.6-6.20); White Blood Count 4.3 K/mm3 (4.5-10.0)
[2025-02-04 04:47] LABS: Anion Gap 9 mmol/L (4-12); Blood Urea Nitrogen 18 mg/dL (9-20); Calcium 8.9 mg/dL (8.4-10.2); Carbon Dioxide 26 mmol/L (22-30); Chloride 98 mmol/L (98-107); Estimated Glomerular Filt Rate > 60; Glucose 310 mg/dL (65-110); Magnesium 2.1 mg/dL (1.6-2.3); Potassium 4.1 mmol/L (3.4-5.0); Sodium 133 mmol/L (137-145)
[2025-02-04 04:57] LABS: MRSA (PCR) NOT DETECTED (NOT DETECTE)
[2025-02-04] MEDS: CEFEPIME 2 GM/NS 50 ML 2 GM/50 ML BAG IVPB ×3 (05:29→21:58)
[2025-02-04] MEDS: GABAPENTIN 300 MG CAPSULE PO ×5 (06:14→19:56)
[2025-02-04 07:16] LABS: Glucose Point of Care 319 mg/dl (65-105)
[2025-02-04] MEDS: AZITHROMYCIN 500 MG/NS 250 ML 500 MG/250 ML BAG 250 MG IVPB (07:29)
[2025-02-04] MEDS: INSULIN ASPART (*BKC) 100 UNITS/ML SUB-Q ×4 (07:31→22:00)
[2025-02-04] MEDS: FLUTICASONE/UMECLIDIN/VILANTER 200-62.5-25 MCG ELLIPTA 1 PUFF INHALATION (07:48)
[2025-02-04] MEDS: CLOPIDOGREL BISULFATE 75 MG TABLET PO (09:04)
[2025-02-04] MEDS: PANTOPRAZOLE 40 MG TABLET PO ×2 (09:05→16:30)
[2025-02-04] MEDS: guaiFENesin 12 HR 600 MG TABCR PO ×2 (09:06→19:56)
[2025-02-04] MEDS: ETHAMBUTOL HCL 400 MG TABLET 800 MG PO (09:09)
[2025-02-04] MEDS: mycophenolate mofetiL 250 MG CAPSULE 1000 MG PO ×2 (09:10→21:59)
[2025-02-04] MEDS: ACYCLOVIR 400 MG TABLET PO ×3 (09:12→16:30)
[2025-02-04 11:09] LABS: Glucose Point of Care 253 mg/dl (65-105)
--- NOTE | 2025-02-04 12:15 | PM.CNPUL ---
Assessment and Plan Assessment and plan (1) COPD (chronic obstructive pulmonary disease): Qualifiers: COPD type: COPD with acute exacerbation Qualified Code(s): J44.1 - Chronic obstructive pulmonary disease with (acute) exacerbation Code(s): J44.9 - Chronic obstructive pulmonary disease, unspecified Status: Acute (2) Tobacco dependence: Code(s): F17.200 - Nicotine dependence, unspecified, uncomplicated Status: Acute (3) Hypoxemic respiratory failure, chronic: Code(s): J96.11 - Chronic respiratory failure with hypoxia Status: Acute (4) Chronic anticoagulation: Code(s): Z79.01 - 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) use of 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 Status: Acute (5) COPD exacerbation: Code(s): J44.1 - Chronic obstructive pulmonary disease with (acute) exacerbation Status: Acute Assessment and Plan: This 59-year-old man, with a history of advanced COPD and treatment for atypical mycobacterial infection, presented with a few days of increasing shortness of breath, wheezing, and hypoxemia. Chest imaging studies showed no new infiltrates that would suggest a lower respiratory tract infection or congestive heart failure. His hypoxemia and wheezing responded to treatment with a single dose of Decadron administered by EMS en route to the emergency room, along with short-acting bronchodilators and a new antibiotic regimen. Currently, his respiratory status has improved, and the patient reports feeling much better, though not yet back to baseline. He has not been able to produce any sputum for culture. His chronic cough and sputum production have subsided following treatment for his atypical mycobacterial infection. He exhibited no hypercapnia on arterial blood gases, and his FiO2 requirement has decreased following treatment for his wheezing. Plan: We will continue with the current regimen, utilizing nebulized short-acting bronchodilators and prescribed antibiotics. Steroids will be avoided due to his immunosuppressive status and history of atypical mycobacterial infection. We will repeat PCR testing for common viruses and continue to monitor the patient in collaboration with you. History of Present Illness History of Present Illness Consult date: 02/04/25 Chief complaint: Acute on chronic respiratory failure Narrative: This consultation concerns a patient with COPD who is experiencing worsening respiratory failure while undergoing treatment for an atypical mycobacterial infection. The patient is well-known to Pulmonary Services from previous hospitalizations. 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 He also has a history of coronary artery disease and type 2 diabetes mellitus. The patient has been on chronic supplemental oxygen at 3 liters per minute during the day and 5 liters per minute at night. He was in his usual state of health until approximately two days prior to this admission when he began experiencing increased shortness of breath and a higher oxygen requirement. He also reported wheezing but did not have fever, chills, or cough. He was brought in by EMS and received Decadron en route to the emergency room. In the emergency room, he was found to be hypoxemic and required high FiO2 via a high-flow nasal cannula. He received treatment with nebulized bronchodilators, BiPAP support and was transferred to the floor. An initial CT pulmonary angiogram showed known chronic changes, particularly necrotic consolidation in the right upper lobe and a smaller area in the left upper lobe, but no new infiltrates or pulmonary embolism. PCR for common viruses negative. Urine antigen for common bacteria infections pending. Currently, the patient is improving. He has a mild cough with no sputum production and is receiving antibiotics, including cefepime and Zithromax. He is also on his standard antibiotic treatment for his atypical mycobacterial infection, including clofazimine. Regarding his atypical mycobacterial infection, diagnosed approximately four months ago, he has been on multiple antibiotics and is followed by the [facility] at [facility]. Upon questioning, the patient stated that his chronic productive cough has significantly improved while on treatment. He has no daily cough, fever, or night sweats. His last pulmonary function test showed an FEV1 of approximately 1.3 L, with severe air trapping and lung hyperinflation. He is on Trelegy as a maintenance bronchodilator, along with short-acting bronchodilators for use as needed. [facility] Past Medical History Medical History (Updated 02/04/25 @ 01:46 by Leyda Davila PA-C) Type 2 diabetes mellitus Chronic obstructive pulmonary disease Systolic congestive heart failure Pancreatitis Non-tuberculous mycobacterial pneumonia MSSA bacteremia Osteopenia Pseudomonas pneumonia Mycobacterium avium complex Chronic zbgks-afffbe-fxxq disease Chronic respiratory failure with hypoxia, on home oxygen therapy Coronary artery disease Pill esophagitis ST elevation (STEMI) myocardial infarction (12/30/22) Chronic anticoagulation Immunocompromised patient patient on anti rejection medications Positive nasal culture for methicillin resistant Staphylococcus aureus Deep venous thrombosis Chronic obstructive pulmonary disease Sciatica Eczema Anxiety Depression Peyronie's disease Emphysema/COPD Acute myeloid leukemia (2008) status post hematopoietic stem cell transplantation with resultant chronic xvnih-syhvwo-bawn disease. 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 Code status: Full code. Years smoked: 44 Smoking status: Light tobacco smoker Tobacco type: cigarettes Smoking end date: 08/07/22 Additional smoking assessment comments: on nicotine patches, states he is currently on patches Alcohol intake: never Substance use: never Substance use type: does not use Do You Feel Safe in your Home?: Yes Lack of Transportation: No Lack of Food: Never True Current Housing: I Have Housing Concerned About Future Housing: No Difficulty Paying Gas/Electric Bills: No Difficulty Paying for Meds: No Currently Unemployed: No Education: High School Diploma/GED Difficulty w/ Childcare or Family Care: No Living arrangements: with friend(s) Additional living arrangements comments: He lives with his roommate in [place]. Occupation/Education: unemployed Spiritual care concerns: No Agree to blood products: Yes Meds Home Medications and Allergies Home Medications ?Medication ?Instructions ?Recorded ?Confirmed ?Type rivaroxaban 20 mg tablet (Xarelto) 20 mg PO QAM 02/06/23 02/04/25 History acyclovir 400 mg tablet 400 mg PO TID #90 tabs 01/28/24 02/04/25 Rx clopidogrel 75 mg tablet 75 mg PO DAILY #90 tabs 01/28/24 02/04/25 Rx montelukast 10 mg tablet 10 mg PO HS #30 tabs 01/28/24 02/04/25 Rx (Singulair) mycophenolate mofetil 500 mg tablet 1,000 mg (2 x 500 mg) PO Q12H #10 01/28/24 02/04/25 Rx tabs tacrolimus 0.5 mg capsule, 0.5 mg PO EVERY OTHER DAY #30 caps 01/28/24 02/04/25 Rx immediate-release (Prograf) albuterol sulfate 90 mcg/actuation 1 puff inhalation Q4-6H PRN 10/23/24 02/04/25 History aerosol inhaler Shortness Of Breath Or Wheezing ondansetron 4 mg disintegrating 4 mg PO Q8H PRN Nausea And Vomiting 10/23/24 02/04/25 History tablet pantoprazole 40 mg tablet,delayed 40 mg PO Q12H 10/23/24 02/04/25 History release clofazimine 50 mg capsule 100 mg PO DAILY 11/25/24 02/04/25 History ethambutol 400 mg tablet 1,200 mg PO DAILY 11/25/24 02/04/25 History isavuconazonium sulfate 186 mg 372 mg PO DAILY 11/25/24 02/04/25 History capsule (Cresemba) albuterol sulfate 2.5 mg/3 mL See Rx Instructions .Route 01/27/25 02/04/25 Rx (0.083 %) solution for nebulization .COMPLEX #180 mL azithromycin 250 mg tablet 250 mg PO DAILY 02/04/25 02/04/25 History fluticasone fur. 200 mcg-umeclid 1 inh inhalation DAILY 02/04/25 02/04/25 History 62.5 mcg-vilant 25 mcg inhalat.powder (Trelegy Ellipta) gabapentin 300 mg capsule 300 mg PO QID 02/04/25 02/04/25 History Allergies Allergy/AdvReac Type Severity Reaction Status Date / Time adhesive tape AdvReac Unknown PAPER Verified 02/03/25 17:34 TAPE,REDNESS AND IRRITATION Vital Signs Vital Signs - 24 hr 02/03/25 17:23 02/03/25 18:01 02/03/25 18:10 Temperature 36.4 C Pulse Rate 132 H 127 H Respiratory Rate 29 H 27 H Blood Pressure 149/95 H Pulse Oximetry 96 88 L 93 Oxygen Delivery Non-Rebreather Mask Non-Rebreather Mask BiPAP Oxygen Flow Rate 15 15 Fraction of Inspired Oxygen 02/03/25 18:12 02/03/25 18:14 02/03/25 18:20 Temperature 37.9 C H Pulse Rate 126 H 125 H 123 H Respiratory Rate 30 H 26 H Blood Pressure 108/56 L Pulse Oximetry 90 Oxygen Delivery Oxygen Flow Rate Fraction of Inspired Oxygen 02/03/25 18:41 02/03/25 18:42 02/03/25 18:46 Temperature 37.9 C H Pulse Rate 123 H Respiratory Rate 30 H Blood Pressure 80/58 L Pulse Oximetry 98 Oxygen Delivery BiPAP Oxygen Flow Rate Fraction of Inspired Oxygen 02/03/25 18:51 02/03/25 19:56 02/03/25 19:56 Temperature Pulse Rate 119 H 117 H 117 H Respiratory Rate 28 H 27 H 27 H Blood Pressure 85/67 L Pulse Oximetry 99 100 Oxygen Delivery BiPAP Oxygen Flow Rate Fraction of Inspired Oxygen 02/03/25 20:00 02/03/25 20:53 02/03/25 21:10 Temperature Pulse Rate 107 H Respiratory Rate 14 Blood Pressure 148/95 H Pulse Oximetry 98 94 100 Oxygen Delivery High Flow Therapy with Na High Flow Therapy with Na Oxygen Flow Rate 60 45 Fraction of Inspired Oxygen 63 54 02/03/25 22:26 02/03/25 22:34 02/04/25 01:14 Temperature Pulse Rate 94 95 Respiratory Rate 19 20 Blood Pressure 82/58 L 89/61 L Pulse Oximetry 100 99 97 Oxygen Delivery High Flow Nasal Cannula Oxygen Flow Rate 7 Fraction of Inspired Oxygen 02/04/25 02:07 02/04/25 02:41 02/04/25 03:10 Temperature Pulse Rate 95 101 H 101 H Respiratory Rate 22 H 18 18 Blood Pressure 93/56 L 93/56 L Pulse Oximetry 95 95 Oxygen Delivery Oxygen Flow Rate Fraction of Inspired Oxygen 02/04/25 03:29 02/04/25 04:00 02/04/25 04:00 Temperature 36.8 C 36.7 C Pulse Rate 98 107 H Respiratory Rate 18 Blood Pressure 102/54 L Pulse Oximetry 100 Oxygen Delivery Oxygen Flow Rate Fraction of Inspired Oxygen 02/04/25 06:00 02/04/25 07:37 02/04/25 07:51 Temperature 36.7 C Pulse Rate 84 80 Respiratory Rate 20 Blood Pressure 109/67 Pulse Oximetry 100 91 Oxygen Delivery Nasal Cannula Oxygen Flow Rate 4 Fraction of Inspired Oxygen 02/04/25 07:51 02/04/25 08:00 02/04/25 08:30 Temperature Pulse Rate 92 100 92 Respiratory Rate 20 20 Blood Pressure Pulse Oximetry Oxygen Delivery Oxygen Flow Rate Fraction of Inspired Oxygen 02/04/25 11:28 Temperature 36.5 C Pulse Rate 92 Respiratory Rate 18 Blood Pressure 105/57 L Pulse Oximetry 100 Oxygen Delivery Oxygen Flow Rate Fraction of Inspired Oxygen Exam Narrative: GENERAL APPEARANCE: Well developed, well nourished, alert and cooperative, and appears to be in no acute distress while on supplemental oxygen via nasal cannula SKIN: Inspection of the skin reveals no rashes, ulcerations or petechiae. HEENT: Sclerae anicteric and conjunctivae pink and moist. Extraocular movements were intact and pupils were equal, round. Dry oral mucosa NECK: Supple. There was no thyroid enlargement, and no tenderness, or masses were felt. CHEST: Normal AP diameter and normal contour without any kyphoscoliosis. LUNGS: Hyperinflated lungs, distant breath sounds no wheezing CARDIAC: There was a regular rate and rhythm without any murmurs, gallops, rubs. ABDOMEN: Soft and nontender with normal bowel sounds. There was no organomegaly. LYMPH NODES: No lymphadenopathy was appreciated in the neck. EXTREMITIES: No cyanosis, clubbing or edema. NEUROLOGIC: Alert and oriented x 3. Normal affect. Results Laboratory Findings 02/04/25 04:18 02/04/25 04:18 ABG, PT/INR, D-dimer: ABG ABG pH 7.370 (7.350-7.450) 02/03/25 18:41 ABG pCO2 39.6 mmHg (35.0-45.0) 02/03/25 18:41 ABG pO2 435.4 mmHg (80.0-100.0) H 02/03/25 18:41 ABG O2 Saturation 99.8 % (95.0-100.0) 02/03/25 18:41 PT/INR, D-dimer PT 14.3 Seconds (11.1-14.7) 02/03/25 19:00 INR 1.1 02/03/25 19:00 Abnormal lab findings: Abnormal Labs 02/03/25 02/03/25 02/03/25 18:04 18:41 19:00 WBC RBC 3.96 L Hgb 13.5 L D Hct 40.1 L MCV 101.3 H MCH 34.1 H RDW 18.0 H MPV 10.7 H [place] % (Auto) 8.9 H Lymph # (Auto) 3.28 H [place] # (Auto) 0.9 H APTT 41.2 H ABG pO2 435.4 H Sodium 132 L Potassium 5.3 H Chloride 95 L Carbon Dioxide 31 H Glucose POC Capillary Glucose Alkaline Phosphatase 186 H NT-Pro-B Natriuret Pep 2890 H 02/03/25 02/04/25 02/04/25 22:40 04:18 07:14 WBC 4.3 L RBC 3.32 L Hgb 11.4 L Hct 33.0 L MCV MCH 34.3 H RDW 18.0 H MPV 10.5 H [place] % (Auto) Lymph # (Auto) [place] # (Auto) APTT ABG pO2 Sodium 133 L Potassium Chloride Carbon Dioxide Glucose 310 H POC Capillary Glucose 150 H 319 H Alkaline Phosphatase NT-Pro-B Natriuret Pep 02/04/25 11:04 WBC RBC Hgb Hct MCV MCH RDW MPV [place] % (Auto) Lymph # (Auto) [place] # (Auto) APTT ABG pO2 Sodium Potassium Chloride Carbon Dioxide Glucose POC Capillary Glucose 253 H Alkaline Phosphatase NT-Pro-B Natriuret Pep
[2025-02-04 16:15] LABS: Glucose Point of Care 263 mg/dl (65-105)
[2025-02-04] MEDS: RIVAROXABAN 20 MG TABLET PO (16:30)
--- NOTE | 2025-02-04 18:22 | PC.NURSE ---
1720-to room 253 via bed accompanied by staff-report was given to Grecia RN- belongings with pt
--- NOTE | 2025-02-04 18:23 | P.PNIM_ITS ---
Progress Note: A&P Assessment and Plan (1) Acute and chronic respiratory failure with hypoxia: Code(s): J96.21 - Acute and chronic respiratory failure with hypoxia Status: Acute (2) Chronic obstructive pulmonary disease: Code(s): J44.9 - Chronic obstructive pulmonary disease, unspecified Status: Acute (3) Chronic omxkl-xtvldu-wjht disease: Code(s): D89.811 - Chronic ynxqw-sesqgl-bqxo disease Status: Acute (4) Type 2 diabetes mellitus: Code(s): E11.9 - Type 2 diabetes mellitus without complications Status: Acute (5) Coronary artery disease: Code(s): I25.10 - Atherosclerotic heart disease of [place] coronary artery without angina pectoris Status: Acute (6) Systolic congestive heart failure: Code(s): I50.20 - Unspecified systolic (congestive) heart failure Status: Acute Plan Acute on chronic respiratory failure Continue titrating oxygen. COPD exacerbation Continue bronchodilators, antibiotics, no steroid due to immunosuppressed status a history of atypical mycobacteria infection. Monitor Chronic ajilv-zlahqi-lfnx disease Continue home medications. History of Mycobacterium avium complex Continue ethambutol CHF, systolic Continue medications. DVT prophylaxis on Xarelto. Subjective Date/time seen: 02/04/25 18:23 Interval history: Comfortable at bedside and 3 liters oxygen Review of Systems Review of Systems: 12 systems were reviewed and are negativ e except for as per HPI. Exam Narrative: General: Thin, chronically ill-appearing male in the semi-Grider position in bed in no acute distress. Weight: 65.9 kg. BMI: 20.8. HEENT: PERRL, EOMI. Sclera anicteric. Oral mucosa is tacky. Neck: Supple. No JVD or lymphadenopathy. Respiratory: Currently on 6 L nasal cannula. Lung sounds are diminished throughout with occasional rhonchi. No significant wheezing. Cardiovascular: Regular rate and rhythm with S1-S2. Gastrointestinal: Abdomen is soft, flat, nontender, and nondistended with positive bowel sounds. Skin: Warm and dry. No rash or lesions on limited exam. Extremities: No cyanosis, clubbing, or edema. Radial and pedal pulses intact. No palpable knots or cords. Neurological: Alert. Cranial nerves 2-12 are grossly intact. No gross focal deficits to casual conversation. Psychiatric: Pleasant and cooperative with appropriate mood and affect. He is in good spirits. Objective Data Vital Signs Vital Signs: Vital Signs - 24 hr 02/03/25 18:41 02/03/25 18:42 02/03/25 18:46 Temperature 100.3 F H Pulse Rate 123 H Respiratory Rate 30 H Blood Pressure 80/58 L Pulse Oximetry 98 Oxygen Delivery BiPAP Oxygen Flow Rate Fraction of Inspired Oxygen 02/03/25 18:51 02/03/25 19:56 02/03/25 19:56 Temperature Pulse Rate 119 H 117 H 117 H Respiratory Rate 28 H 27 H 27 H Blood Pressure 85/67 L Pulse Oximetry 99 100 Oxygen Delivery BiPAP Oxygen Flow Rate Fraction of Inspired Oxygen 02/03/25 20:00 02/03/25 20:53 02/03/25 21:10 Temperature Pulse Rate 107 H Respiratory Rate 14 Blood Pressure 148/95 H Pulse Oximetry 98 94 100 Oxygen Delivery High Flow Therapy with Na High Flow Therapy with Na Oxygen Flow Rate 60 45 Fraction of Inspired Oxygen 63 54 02/03/25 22:26 02/03/25 22:34 02/04/25 01:14 Temperature Pulse Rate 94 95 Respiratory Rate 19 20 Blood Pressure 82/58 L 89/61 L Pulse Oximetry 100 99 97 Oxygen Delivery High Flow Nasal Cannula Oxygen Flow Rate 7 Fraction of Inspired Oxygen 02/04/25 02:07 02/04/25 02:41 02/04/25 03:10 Temperature Pulse Rate 95 101 H 101 H Respiratory Rate 22 H 18 18 Blood Pressure 93/56 L 93/56 L Pulse Oximetry 95 95 Oxygen Delivery Oxygen Flow Rate Fraction of Inspired Oxygen 02/04/25 03:29 02/04/25 04:00 02/04/25 04:00 Temperature 98.3 F 98.1 F Pulse Rate 98 107 H Respiratory Rate 18 Blood Pressure 102/54 L Pulse Oximetry 100 Oxygen Delivery Oxygen Flow Rate Fraction of Inspired Oxygen 02/04/25 06:00 02/04/25 07:37 02/04/25 07:51 Temperature 98.1 F Pulse Rate 84 80 Respiratory Rate 20 Blood Pressure 109/67 Pulse Oximetry 100 91 Oxygen Delivery Nasal Cannula Oxygen Flow Rate 4 Fraction of Inspired Oxygen 02/04/25 07:51 02/04/25 08:00 02/04/25 08:30 Temperature Pulse Rate 92 100 92 Respiratory Rate 20 20 Blood Pressure Pulse Oximetry Oxygen Delivery Oxygen Flow Rate Fraction of Inspired Oxygen 02/04/25 10:00 02/04/25 11:28 02/04/25 13:45 Temperature 97.7 F Pulse Rate 90 92 88 Respiratory Rate 18 20 Blood Pressure 105/57 L Pulse Oximetry 100 Oxygen Delivery Oxygen Flow Rate Fraction of Inspired Oxygen 02/04/25 13:55 02/04/25 16:00 Temperature 98.0 F Pulse Rate 92 89 Respiratory Rate 20 20 Blood Pressure 114/53 L Pulse Oximetry 100 Oxygen Delivery Oxygen Flow Rate Fraction of Inspired Oxygen Intake/Output Intake/Output: Intake & Output 02/01/25 02/02/25 02/03/25 02/04/25 23:59 23:59 23:59 23:59 Intake Total 104 3684 Output Total 1275 Balance 104 2409 Meds/Results Medications: Active Medications Generic Name Dose Route Start Last Admin Trade Name Freq PRN Reason Stop Dose Admin Acetaminophen 650 mg 02/04/25 01:51 Acetaminophen 325 Mg Tablet PO Q6H PRN Mild Pain (1-3) or Fever Acyclovir 400 mg 02/04/25 09:00 02/04/25 16:30 Acyclovir 400 Mg Tablet PO 400 mg TID ROSA MARIA Administration Albuterol/Ipratropium 3 ml 02/04/25 02:00 02/04/25 13:44 Ipratropium 0.5 Mg/Albuterol Sulfate 2.5 Mg Ampul.Neb 3 Ml INHALATION 3 ml Q6HRT ROSA MARIA Administration Clopidogrel Bisulfate 75 mg 02/04/25 09:00 02/04/25 09:04 Clopidogrel Bisulfate 75 Mg Tablet PO 75 mg DAILY ROSA MARIA Administration Dextrose 12.5 gm 02/04/25 01:51 Dextrose 50% 25 Gm/50 Ml Syringe IV PUSH PRN PRN Hypoglycemia Protocol Ethambutol HCl 800 mg 02/04/25 09:00 02/04/25 09:09 Ethambutol Hcl 400 Mg Tablet PO 800 mg DAILY ROSA MARIA Administration Fluticasone/Umeclidinium/Vilanterol 1 puff 02/04/25 08:00 02/04/25 07:48 Fluticasone/Umeclidin/Vilanter 200-62.5-25 Mcg Ellipta INHALATION 1 puff DAILYRT ROSA MARIA Administration Gabapentin 300 mg 02/04/25 09:00 02/04/25 16:30 Gabapentin 300 Mg Capsule PO 300 mg QID ROSA MARIA Administration Glucagon 1 mg 02/04/25 01:51 Glucagon For Inj 1 Mg Vial IM PRN PRN Hypoglycemia Protocol Glucose 15 gm 02/04/25 01:51 Glucose Oral Gel 15 Gm Of Glucse In 37.5 Gm Tube PO PRN PRN Hypoglycemia Protocol Guaifenesin 600 mg 02/04/25 09:00 02/04/25 09:06 Guaifenesin 12 Hr 600 Mg Tabcr PO 600 mg Q12HR ROSA MARIA Administration Dextrose 1,000 mls @ 100 mls/hr 02/04/25 01:51 Dextrose 5% 1,000 Ml IVPB PRN PRN Hypoglycemia Protocol Cefepime HCl 2 gm in 50 mls @ 100 mls/hr 02/04/25 06:00 02/04/25 14:01 Maxipime 2 Gm/Ns 50 Ml IVPB 100 mls/hr Q8H ROSA MARIA Administration Azithromycin 500 mg in 250 mls @ 250 mls/hr 02/04/25 08:00 02/04/25 08:30 Zithromax IVPB Infused Q24H ROSA MARIA Infusion Insulin Aspart 2 - 5 units 02/04/25 08:00 02/04/25 16:31 Insulin Aspart (*Bkc) 100 Units/Ml SUB-Q 3 units TIDWM ROSA MARIA Administration Protocol Insulin Aspart 1 - 2 units 02/04/25 21:00 Insulin Aspart (*Bkc) 100 Units/Ml SUB-Q HS ROSA MARIA Protocol Miscellaneous Information 0 each 02/04/25 06:45 02/04/25 14:03 Clofazimine 50 Mg Capsule- Nonformulary. Please Obtain A Home Supply If Possible. XX 03/06/25 06:44 Not Given CLARIFY ROSA MARIA Miscellaneous Information 0 each 02/04/25 06:45 02/04/25 14:03 Isavuconazonium- Nonformulary. Please Obtain A Home Supply If Possible. XX 03/06/25 06:44 Not Given CLARIFY ROSA MARIA Montelukast Sodium 10 mg 02/04/25 21:00 Montelukast Sodium 10 Mg Tablet PO HS ROSA MARIA Mycophenolate Mofetil 1,000 mg 02/04/25 09:00 02/04/25 09:10 Mycophenolate Mofetil 250 Mg Capsule PO 1,000 mg Q12HR ROSA MARIA Administration Non-Formulary Medication 100 mg 02/04/25 09:00 Clofazimine PO 03/06/25 08:59 DAILY [facility] Non-Formulary Medication 372 mg 02/04/25 09:00 Isavuconazonium Sulfate [Cresemba] PO 03/06/25 08:59 DAILY [facility] Pantoprazole Sodium 40 mg 02/04/25 09:00 02/04/25 16:30 Pantoprazole 40 Mg Tablet PO 40 mg BID ROSA MARIA Administration Rivaroxaban 20 mg 02/04/25 17:00 02/04/25 16:30 Rivaroxaban 20 Mg Tablet PO 20 mg DAILY@1700 [facility] Administration Tacrolimus 0.5 mg 02/05/25 09:00 Tacrolimus 0.5 Mg Capsule PO Q48H [facility] Radiology Results: ITS Impressions Chest X-Ray 02/03/25 18:28 IMPRESSION: No focal infiltrate or effusion. Chest CTA 02/03/25 23:18 IMPRESSION: No pulmonary embolus. No thoracic aortic dissection. Redemonstration of chronic panlobular emphysematous change with right apical consolidation with cavitary change and pleural-based scarring within the left upper lobe with cavitary change. Labs Labs: Laboratory Results - last 24 hr 02/03/25 02/03/25 02/03/25 18:04 18:41 19:00 WBC RBC Hgb Hct MCV MCH MCHC RDW Plt Count MPV PT 14.3 INR 1.1 APTT 41.2 H Puncture Site Left radial ABG pH 7.370 ABG pCO2 39.6 ABG pO2 435.4 H ABG PO2/FiO2 Ratio 4.35 ABG HCO3 22.4 ABG O2 Saturation 99.8 ABG O2 Content 19.0 ABG Base Excess -2.6 A-a Gradient 238.0 Oxyhemoglobin 99.1 Carboxyhemoglobin 0.4 Methemoglobin 0.2 Reduced Hemoglobin 0.3 Total Hemoglobin 12.8 O2 Delivery Device Non-invasive vent O2 Liters/Min 0.0 Vent Rate 4 FiO2 100 Expiratory Pressure 6 Inspiratory Pressure 12 Sodium 132 L Potassium 5.3 H Chloride 95 L Carbon Dioxide 31 H Anion Gap 6 BUN 10 D Creatinine 0.75 Estim Creat Clear Calc 87 Estimated GFR > 60 Glucose 103 POC Capillary Glucose Calcium 9.2 Magnesium Total Bilirubin 0.9 AST 39 ALT 20 Alkaline Phosphatase 186 H NT-Pro-B Natriuret Pep 2890 H Total Protein 8.0 Albumin 3.6 Nasal MRSA (PCR) Influenza A (RT-PCR) Influenza B (RT-PCR) RSV (RT-PCR) SARS-CoV-2 RNA (RT-PCR) 02/03/25 02/03/25 02/04/25 19:47 22:40 03:28 WBC RBC Hgb Hct MCV MCH MCHC RDW Plt Count MPV PT INR APTT Puncture Site ABG pH ABG pCO2 ABG pO2 ABG PO2/FiO2 Ratio ABG HCO3 ABG O2 Saturation ABG O2 Content ABG Base Excess A-a Gradient Oxyhemoglobin Carboxyhemoglobin Methemoglobin Reduced Hemoglobin Total Hemoglobin O2 Delivery Device O2 Liters/Min Vent Rate FiO2 Expiratory Pressure Inspiratory Pressure Sodium Potassium Chloride Carbon Dioxide Anion Gap BUN Creatinine Estim Creat Clear Calc Estimated GFR Glucose POC Capillary Glucose 150 H Calcium Magnesium Total Bilirubin AST ALT Alkaline Phosphatase NT-Pro-B Natriuret Pep Total Protein Albumin Nasal MRSA (PCR) Not detected Influenza A (RT-PCR) Negative Influenza B (RT-PCR) Negative RSV (RT-PCR) Negative SARS-CoV-2 RNA (RT-PCR) Negative 02/04/25 02/04/25 02/04/25 04:18 07:14 11:04 WBC 4.3 L RBC 3.32 L Hgb 11.4 L Hct 33.0 L MCV 99.4 MCH 34.3 H MCHC 34.5 RDW 18.0 H Plt Count 308 MPV 10.5 H PT INR APTT Puncture Site ABG pH ABG pCO2 ABG pO2 ABG PO2/FiO2 Ratio ABG HCO3 ABG O2 Saturation ABG O2 Content ABG Base Excess A-a Gradient Oxyhemoglobin Carboxyhemoglobin Methemoglobin Reduced Hemoglobin Total Hemoglobin O2 Delivery Device O2 Liters/Min Vent Rate FiO2 Expiratory Pressure Inspiratory Pressure Sodium 133 L Potassium 4.1 Chloride 98 Carbon Dioxide 26 Anion Gap 9 BUN 18 Creatinine 0.90 Estim Creat Clear Calc Not Reportable Estimated GFR > 60 Glucose 310 H POC Capillary Glucose 319 H 253 H Calcium 8.9 Magnesium 2.1 Total Bilirubin AST ALT Alkaline Phosphatase NT-Pro-B Natriuret Pep Total Protein Albumin Nasal MRSA (PCR) Influenza A (RT-PCR) Influenza B (RT-PCR) RSV (RT-PCR) SARS-CoV-2 RNA (RT-PCR) 02/04/25 16:12 WBC RBC Hgb Hct MCV MCH MCHC RDW Plt Count MPV PT INR APTT Puncture Site ABG pH ABG pCO2 ABG pO2 ABG PO2/FiO2 Ratio ABG HCO3 ABG O2 Saturation ABG O2 Content ABG Base Excess A-a Gradient Oxyhemoglobin Carboxyhemoglobin Methemoglobin Reduced Hemoglobin Total Hemoglobin O2 Delivery Device O2 Liters/Min Vent Rate FiO2 Expiratory Pressure Inspiratory Pressure Sodium Potassium Chloride Carbon Dioxide Anion Gap BUN Creatinine Estim Creat Clear Calc Estimated GFR Glucose POC Capillary Glucose 263 H Calcium Magnesium Total Bilirubin AST ALT Alkaline Phosphatase NT-Pro-B Natriuret Pep Total Protein Albumin Nasal MRSA (PCR) Influenza A (RT-PCR) Influenza B (RT-PCR) RSV (RT-PCR) SARS-CoV-2 RNA (RT-PCR) Quality VTE Prophylaxis VTE prophylaxis: pharmacologic ordered (On rivaroxaban)
[2025-02-04] MEDS: MONTELUKAST SODIUM 10 MG TABLET PO (19:56)
[2025-02-04 22:01] LABS: Glucose Point of Care 256 mg/dl (65-105)
[2025-02-04] MEDS: ACETAMINOPHEN 325 MG TABLET 650 MG PO (22:33)
[2025-02-04] MEDS: MELATONIN 5 MG TABLET PO (23:37)
[2025-02-05] VITALS (14 sets, daily range): BP systolic 93–98; BP diastolic 55–65; PULSE 84–126; RESP 18–24; TEMP 36.1–36.5; O2SAT 95–100
[2025-02-05 02:38] LABS: Glucose Point of Care 259 mg/dl (65-105)
[2025-02-05 05:12] LABS: Basophils Absolute Auto 0.1 K/mm3 (0.0-0.1); Basophils Percent Auto 0.2 % (0.2-1.2); Hematocrit 28.4 % (42.0-52.0); Hemoglobin 9.5 g/dL (14.0-18.0); Immature Granulocyte Absolute 0.77 K/mm3 (0.00-0.031); Immature Granulocyte Percent A 3.1 % (0-0.5); Lymphocytes Absolute Auto 1.26 K/mm3 (0.9-3.2); Lymphocytes Percent Auto 5.1 % (18.3-44.2); Mean Corpuscular HGB Conc 33.5 g/dl (32-36); Mean Corpuscular Hemoglobin 34.3 pg (26-34); Mean Corpuscular Volume 102.5 fl (80-100); Mean Platelet Volume 10.2 fl (7.4-10.4); Monocytes Absolute Auto 1.1 K/mm3 (0.1-0.6); Monocytes Percent Auto 4.3 % (2.6-8.5); Neutrophils Absolute Auto 21.6 K/mm3 (1.3-6.7); Neutrophils Percent Auto 87.3 % (45.5-73.1); Platelet Count Result 262 k/mm3 (150-375); Red Blood Count 2.77 M/mm3 (4.6-6.20); Red Cell Distribution Width 18.7 % (11.5-14.5); White Blood Count 24.8 K/mm3 (4.5-10.0)
[2025-02-05 05:29] LABS: Alanine Aminotransferase 16 U/L (6-50); Albumin Level 2.9 g/dL (3.5-5.1); Alkaline Phosphatase 118 U/L (38-126); Anion Gap 5 mmol/L (4-12); Aspartate Amino Transferase 24 U/L (17-59); Bilirubin,Total 0.3 mg/dL (0.2-1.3); Blood Urea Nitrogen 23 mg/dL (9-20); Calcium 8.3 mg/dL (8.4-10.2); Carbon Dioxide 28 mmol/L (22-30); Chloride 103 mmol/L (98-107); Estimated CRCL calculation 73 ml/min; Estimated Glomerular Filt Rate > 60; Glucose 271 mg/dL (65-110); Magnesium 1.9 mg/dL (1.6-2.3); Potassium 4.8 mmol/L (3.4-5.0); Sodium 136 mmol/L (137-145)
[2025-02-05 05:37] LABS: Band Neutrophils Percent 7 % (0-6); Lymphocytes Absolute Manual 1.24 K/mm3 (1.1-4.5); Monocytes Absolute Manual 0.49 K/mm3 (0.1-0.90); Monocytes Percent Manual 2 % (3-9); Neutrophils Absolute Manual 23.06 K/mm3 (1.3-6.7); Neutrophils Percent Manual 86 % (46-73); Total Cells Counted 100
[2025-02-05 05:38] LABS: Anisocytosis 1+; Platelet Estimate Adequate (Adequate); Schistocytes None Seen; Target Cells 1+
[2025-02-05] MEDS: CEFEPIME 2 GM/NS 50 ML 2 GM/50 ML BAG IVPB ×3 (05:44→20:51)
--- NOTE | 2025-02-05 07:28 | P.CDI_ITS ---
CDI Query Clarification Request BMI: 16.9 Nutritional Diagnostic Statement: Please refer to the comprehensive nutrition assessment for further information. If you agree with diagnosis of 1. Severe malnutrition related to chronic swallowing issues as evidenced by weight loss 14%/2 months; intakes <75% needs >1 month; severe muscle wasting and fat loss. 2. Altered nutrition related lab values related to type 2 diabetes as evidenced by BG 310. Please specify severity if known: * Mild * Moderate * Severe * Other/Unknown <Silva Tovar RN - Last Filed: 02/05/25 07:34> Clarified Diagnosis Clarified Diagnosis: * Severe <Diya Michelle MD - Last Filed: 02/05/25 08:11>
[2025-02-05 07:55] LABS: Glucose Point of Care 171 mg/dl (65-105)
[2025-02-05] MEDS: PANTOPRAZOLE 40 MG TABLET PO ×2 (09:16→17:09)
[2025-02-05] MEDS: ACYCLOVIR 400 MG TABLET PO ×3 (09:17→17:09)
[2025-02-05] MEDS: GABAPENTIN 300 MG CAPSULE PO ×4 (09:17→20:40)
[2025-02-05] MEDS: mycophenolate mofetiL 250 MG CAPSULE 1000 MG PO ×2 (09:17→20:40)
[2025-02-05] MEDS: CLOPIDOGREL BISULFATE 75 MG TABLET PO (09:17)
[2025-02-05] MEDS: TACROLIMUS 0.5 MG CAPSULE PO (09:17)
[2025-02-05] MEDS: guaiFENesin 12 HR 600 MG TABCR PO ×2 (09:17→20:40)
[2025-02-05] MEDS: ETHAMBUTOL HCL 400 MG TABLET 800 MG PO (09:18)
[2025-02-05] MEDS: AZITHROMYCIN 500 MG/NS 250 ML 500 MG/250 ML BAG 250 MG IVPB (09:19)
[2025-02-05] MEDS: IPRATROPIUM 0.5 MG/ALBUTEROL SULFATE 2.5 MG AMPUL.NEB 3 ML INHALATION ×3 (09:32→20:25)
[2025-02-05] MEDS: FLUTICASONE/UMECLIDIN/VILANTER 200-62.5-25 MCG ELLIPTA 1 PUFF INHALATION (09:53)
--- NOTE | 2025-02-05 10:01 | P.PNPL_ITS ---
Progress Note: A&P Assessment and Plan (1) Acute exacerbation of chronic obstructive airways disease: Code(s): J44.1 - Chronic obstructive pulmonary disease with (acute) exacerbation Status: Acute Assessment and Plan: This 59-year-old man, with a history of advanced COPD and treatment for atypical mycobacterial infection, presented with a few days of increasing shortness of breath, wheezing, and hypoxemia. Chest imaging studies showed no new infiltrates that would suggest a lower respiratory tract infection or congestive heart failure. His hypoxemia and wheezing responded to treatment with a single dose of Decadron administered by EMS en route to the emergency room, along with short- acting bronchodilators and a new antibiotic regimen. Currently, his respiratory status has improved, and the patient reports feeling much better, though not yet back to baseline. He has not been able to produce any sputum for culture. His chronic cough and sputum production have subsided following treatment for his atypical mycobacterial infection. He exhibited no hypercapnia on arterial blood gases, and his FiO2 requirement has decreased following treatment for his wheezing. On today's laboratory testing his WBC is elevated. Physical exam he has mild expiratory wheezing but patient does not look septic and is not complaining of any new symptoms suggestive of lower respiratory tract infection. His only complain is bilateral ear fullness, which is most likely related to impacted cerumen. Plan: We will continue with the current regimen, utilizing nebulized short- acting bronchodilators and prescribed antibiotics. Steroids will be avoided due to his immunosuppressive status and history of atypical mycobacterial infection. Repeat CBC and chest x-ray in a.m. will continue to follow the patient along rodríguez xavier. 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 He denied fever chills hemoptysis chest pain. He stated his breathing is much improved. Anxious to go home. His only complaint is ear fullness. Review of Systems Review of Systems: All systems reviewed & are unremarkable except as noted in HPI and below (HPI and below) Exam Narrative: GENERAL APPEARANCE: Well developed, well nourished, alert and cooperative, and appears to be in no acute distress while on supplemental oxygen via nasal cannula SKIN: Inspection of the skin reveals no rashes, ulcerations or petechiae. HEENT: Sclerae anicteric and conjunctivae pink and moist. Extraocular movements were intact and pupils were equal, round. Ears cerumen impaction bilaterally. NECK: Supple. There was no thyroid enlargement, and no tenderness, or masses were felt. CHEST: Normal AP diameter and normal contour without any kyphoscoliosis. LUNGS: Hyperinflated lungs, distant breath sounds no wheezing CARDIAC: There was a regular rate and rhythm without any murmurs, gallops, rubs. ABDOMEN: Soft and nontender with normal bowel sounds. There was no organomegaly. LYMPH NODES: No lymphadenopathy was appreciated in the neck. EXTREMITIES: No cyanosis, clubbing or edema. NEUROLOGIC: Alert and oriented x 3. Normal affect. Objective Data Vital Signs Vital Signs: Vital Signs - 24 hr 02/04/25 11:28 02/04/25 13:45 02/04/25 13:55 Temperature 36.5 C Pulse Rate 92 88 92 Respiratory Rate 18 20 20 Blood Pressure 105/57 L Pulse Oximetry 100 Oxygen Delivery Oxygen Flow Rate 02/04/25 16:00 02/04/25 20:00 02/04/25 21:35 Temperature 36.7 C 36.6 C Pulse Rate 89 87 Respiratory Rate 20 18 Blood Pressure 114/53 L 105/63 Pulse Oximetry 100 100 100 Oxygen Delivery Nasal Cannula Oxygen Flow Rate 4 02/04/25 21:53 02/05/25 03:15 02/05/25 03:25 Temperature Pulse Rate 88 91 Respiratory Rate 18 18 Blood Pressure Pulse Oximetry 100 Oxygen Delivery Nasal Cannula Oxygen Flow Rate 4 02/05/25 04:29 02/05/25 09:34 02/05/25 09:34 Temperature 36.5 C Pulse Rate 86 84 84 Respiratory Rate 18 20 20 Blood Pressure 98/65 L Pulse Oximetry 99 96 Oxygen Delivery Nasal Cannula Oxygen Flow Rate 4 02/05/25 09:55 02/05/25 09:56 Temperature Pulse Rate 120 H 126 H Respiratory Rate 24 H Blood Pressure Pulse Oximetry 100 Oxygen Delivery Oxygen Flow Rate Intake/Output Intake/Output: Intake & Output 02/02/25 02/03/25 02/04/25 02/05/25 23:59 23:59 23:59 23:59 Intake Total 104 4024 630 Output Total 1275 600 Balance 104 5199 30 Meds/Results Medications: Active Medications Generic Name Dose Route Start Last Admin Trade Name Freq PRN Reason Stop Dose Admin Acetaminophen 650 mg 02/04/25 01:51 02/04/25 22:33 Acetaminophen 325 Mg Tablet PO 650 mg Q6H PRN Administration Mild Pain (1-3) or Fever Acyclovir 400 mg 02/04/25 09:00 02/05/25 09:17 Acyclovir 400 Mg Tablet PO 400 mg TID ROSA MARIA Administration Albuterol/Ipratropium 3 ml 02/04/25 02:00 02/05/25 09:32 Ipratropium 0.5 Mg/Albuterol Sulfate 2.5 Mg Ampul.Neb 3 Ml INHALATION 3 ml Q6HRT ROSA MARIA Administration Clopidogrel Bisulfate 75 mg 02/04/25 09:00 02/05/25 09:17 Clopidogrel Bisulfate 75 Mg Tablet PO 75 mg DAILY ROSA MARIA Administration Dextrose 12.5 gm 02/04/25 01:51 Dextrose 50% 25 Gm/50 Ml Syringe IV PUSH PRN PRN Hypoglycemia Protocol Ethambutol HCl 800 mg 02/04/25 09:00 02/05/25 09:18 Ethambutol Hcl 400 Mg Tablet PO 800 mg DAILY ROSA MARIA Administration Fluticasone/Umeclidinium/Vilanterol 1 puff 02/04/25 08:00 02/05/25 09:53 Fluticasone/Umeclidin/Vilanter 200-62.5-25 Mcg Ellipta INHALATION 1 puff DAILYRT ROSA MARIA Administration Gabapentin 300 mg 02/04/25 09:00 02/05/25 09:17 Gabapentin 300 Mg Capsule PO 300 mg QID ROSA MARIA Administration Glucagon 1 mg 02/04/25 01:51 Glucagon For Inj 1 Mg Vial IM PRN PRN Hypoglycemia Protocol Glucose 15 gm 02/04/25 01:51 Glucose Oral Gel 15 Gm Of Glucse In 37.5 Gm Tube PO PRN PRN Hypoglycemia Protocol Guaifenesin 600 mg 02/04/25 09:00 02/05/25 09:17 Guaifenesin 12 Hr 600 Mg Tabcr PO 600 mg Q12HR ROSA MARIA Administration Dextrose 1,000 mls @ 100 mls/hr 02/04/25 01:51 Dextrose 5% 1,000 Ml IVPB PRN PRN Hypoglycemia Protocol Cefepime HCl 2 gm in 50 mls @ 100 mls/hr 02/04/25 06:00 02/05/25 05:44 Maxipime 2 Gm/Ns 50 Ml IVPB 100 mls/hr Q8H ROSA MARIA Administration Azithromycin 500 mg in 250 mls @ 250 mls/hr 02/04/25 08:00 02/05/25 09:19 Zithromax IVPB 250 mls/hr Q24H ROSA MARIA Administration Insulin Aspart 2 - 5 units 02/04/25 08:00 02/05/25 09:18 Insulin Aspart (*Bkc) 100 Units/Ml SUB-Q Not Given TIDWM ROSA MARIA Protocol Insulin Aspart 1 - 2 units 02/04/25 21:00 02/04/25 22:00 Insulin Aspart (*Bkc) 100 Units/Ml SUB-Q 1 units HS ROSA MARIA Administration Protocol Melatonin 5 mg 02/04/25 23:28 02/04/25 23:37 Melatonin 5 Mg Tablet PO 5 mg HS PRN Administration Sleep Miscellaneous Information 0 each 02/04/25 06:45 02/04/25 14:03 Clofazimine 50 Mg Capsule- Nonformulary. Please Obtain A Home Supply If Possible. XX 03/06/25 06:44 Not Given CLARIFY ROSA MARIA Miscellaneous Information 0 each 02/04/25 06:45 02/04/25 14:03 Isavuconazonium- Nonformulary. Please Obtain A Home Supply If Possible. XX 03/06/25 06:44 Not Given CLARIFY ROSA MARIA Montelukast Sodium 10 mg 02/04/25 21:00 02/04/25 19:56 Montelukast Sodium 10 Mg Tablet PO 10 mg HS ROSA MARIA Administration Mycophenolate Mofetil 1,000 mg 02/04/25 09:00 02/05/25 09:17 Mycophenolate Mofetil 250 Mg Capsule PO 1,000 mg Q12HR ROSA MARIA Administration Non-Formulary Medication 100 mg 02/04/25 09:00 Clofazimine PO 03/06/25 08:59 DAILY ROSA MARIA Non-Formulary Medication 372 mg 02/04/25 09:00 Isavuconazonium Sulfate [Cresemba] PO 03/06/25 08:59 DAILY ROSA MARIA Pantoprazole Sodium 40 mg 02/04/25 09:00 02/05/25 09:16 Pantoprazole 40 Mg Tablet PO 40 mg BID ROSA MARIA Administration Rivaroxaban 20 mg 02/04/25 17:00 02/04/25 16:30 Rivaroxaban 20 Mg Tablet PO 20 mg DAILY@1700 ROSA MARIA Administration Tacrolimus 0.5 mg 02/05/25 09:00 02/05/25 09:17 Tacrolimus 0.5 Mg Capsule PO 0.5 mg Q48H ROSA MARIA Administration Radiology Results: ITS Impressions Chest X-Ray 02/03/25 18:28 IMPRESSION: No focal infiltrate or effusion. Chest CTA 02/03/25 23:18 IMPRESSION: No pulmonary embolus. No thoracic aortic dissection. Redemonstration of chronic panlobular emphysematous change with right apical consolidation with cavitary change and pleural-based scarring within the left upper lobe with cavitary change. Labs Labs: Laboratory Results - last 24 hr 02/04/25 02/04/25 02/04/25 11:04 16:12 21:39 WBC RBC Hgb Hct MCV MCH MCHC RDW Plt Count MPV Immature Gran % (Auto) Neut % (Auto) Lymph % (Auto) [place] % (Auto) Eos % (Auto) Baso % (Auto) Lymph # (Auto) [place] # (Auto) Eos # (Auto) Baso # (Auto) Abs Immat Gran (auto) Absolute Neuts (auto) Absolute Nucleated RBC Total Counted Neutrophils % (Manual) Band Neutrophils % Lymphocytes % (Manual) Monocytes % (Manual) Nucleated RBC % Abs Neuts (Manual) Abs Lymphs (Manual) Abs Monocytes (Manual) Platelet Estimate Anisocytosis Target Cells Schistocytes Sodium Potassium Chloride Carbon Dioxide Anion Gap BUN Creatinine Estim Creat Clear Calc Estimated GFR Glucose POC Capillary Glucose 253 H 263 H 256 H Calcium Magnesium Total Bilirubin AST ALT Alkaline Phosphatase Total Protein Albumin 02/05/25 02/05/25 02/05/25 01:22 04:47 07:51 WBC 24.8 H RBC 2.77 L Hgb 9.5 L Hct 28.4 L MCV 102.5 H MCH 34.3 H MCHC 33.5 RDW 18.7 H Plt Count 262 MPV 10.2 Immature Gran % (Auto) 3.1 H Neut % (Auto) 87.3 H Lymph % (Auto) 5.1 L [place] % (Auto) 4.3 Eos % (Auto) 0.0 Baso % (Auto) 0.2 Lymph # (Auto) 1.26 [place] # (Auto) 1.1 H Eos # (Auto) 0.0 Baso # (Auto) 0.1 Abs Immat Gran (auto) 0.77 H Absolute Neuts (auto) 21.6 H Absolute Nucleated RBC 0.000 Total Counted 100 Neutrophils % (Manual) 86 H Band Neutrophils % 7 H Lymphocytes % (Manual) 5.0 L Monocytes % (Manual) 2 L Nucleated RBC % 0.0 Abs Neuts (Manual) 23.06 H Abs Lymphs (Manual) 1.24 Abs Monocytes (Manual) 0.49 Platelet Estimate Adequate Anisocytosis 1+ Target Cells 1+ Schistocytes None seen Sodium 136 L Potassium 4.8 Chloride 103 Carbon Dioxide 28 Anion Gap 5 BUN 23 H Creatinine 0.74 Estim Creat Clear Calc 73 Estimated GFR > 60 Glucose 271 H POC Capillary Glucose 259 H 171 H Calcium 8.3 L Magnesium 1.9 Total Bilirubin 0.3 AST 24 ALT 16 Alkaline Phosphatase 118 Total Protein 7.0 Albumin 2.9 L
[2025-02-05 10:29] LABS: Folic Acid 4.9 ng/mL (2.76->20)
[2025-02-05 11:25] LABS: Glucose Point of Care 216 mg/dl (65-105)
[2025-02-05] MEDS: INSULIN ASPART (*BKC) 100 UNITS/ML SUB-Q ×2 (12:18→20:43)
--- NOTE | 2025-02-05 12:22 | PM.IMPN ---
Progress Note: A&P Assessment and Plan (1) Acute and chronic respiratory failure with hypoxia: Code(s): J96.21 - Acute and chronic respiratory failure with hypoxia Status: Acute (2) Chronic obstructive pulmonary disease: Code(s): J44.9 - Chronic obstructive pulmonary disease, unspecified Status: Acute (3) Chronic impju-yqiuqh-zllu disease: Code(s): D89.811 - Chronic lvytq-micpsc-yulk disease Status: Acute (4) Type 2 diabetes mellitus: Code(s): E11.9 - Type 2 diabetes mellitus without complications Status: Acute (5) Coronary artery disease: Code(s): I25.10 - Atherosclerotic heart disease of [place] coronary artery without angina pectoris Status: Acute (6) Systolic congestive heart failure: Code(s): I50.20 - Unspecified systolic (congestive) heart failure Status: Acute Plan Acute on chronic respiratory failure Continue titrating oxygen. COPD exacerbation Continue bronchodilators, antibiotics, no steroid due to immunosuppressed status a history of atypical mycobacteria infection. repeat CXR in the am Pulmonology following Monitor Chronic lpdfz-qjiequ-wtft disease Continue home medications. History of Mycobacterium avium complex Continue ethambutol CHF, systolic Continue medications. DVT prophylaxis on Xarelto. Subjective Date/time seen: 02/05/25 12:22 Interval history: Comfortable at bedside Pulmonology eval noted Review of Systems Review of Systems: 12 systems were reviewed and are negative except for as per HPI. Exam Narrative: General: Thin, chronically ill-appearing male in the semi-Grider position in bed in no acute distress. Weight: 65.9 kg. BMI: 20.8. HEENT: PERRL, EOMI. Sclera anicteric. Oral mucosa is tacky. Neck: Supple. No JVD or lymphadenopathy. Respiratory: Currently on 6 L nasal cannula. Lung sounds are diminished throughout with occasional rhonchi. No significant wheezing. Cardiovascular: Regular rate and rhythm with S1-S2. Gastrointestinal: Abdomen is soft, flat, nontender, and nondistended with positive bowel sounds. Skin: Warm and dry. No rash or lesions on limited exam. Extremities: No cyanosis, clubbing, or edema. Radial and pedal pulses intact. No palpable knots or cords. Neurological: Alert. Cranial nerves 2-12 are grossly intact. No gross focal deficits to casual conversation. Psychiatric: Pleasant and cooperative with appropriate mood and affect. He is in good spirits. Objective Data Vital Signs Vital Signs: Vital Signs - 24 hr 02/04/25 13:45 02/04/25 13:55 02/04/25 16:00 Temperature 98.0 F Pulse Rate 88 92 89 Respiratory Rate 20 20 20 Blood Pressure 114/53 L Pulse Oximetry 100 Oxygen Delivery Oxygen Flow Rate 02/04/25 20:00 02/04/25 21:35 02/04/25 21:53 Temperature 97.9 F Pulse Rate 87 Respiratory Rate 18 Blood Pressure 105/63 Pulse Oximetry 100 100 100 Oxygen Delivery Nasal Cannula Nasal Cannula Oxygen Flow Rate 4 4 02/05/25 03:15 02/05/25 03:25 02/05/25 04:29 Temperature 97.7 F Pulse Rate 88 91 86 Respiratory Rate 18 18 18 Blood Pressure 98/65 L Pulse Oximetry 99 Oxygen Delivery Oxygen Flow Rate 02/05/25 09:34 02/05/25 09:34 02/05/25 09:55 Temperature Pulse Rate 84 84 120 H Respiratory Rate 20 20 24 H Blood Pressure Pulse Oximetry 96 Oxygen Delivery Nasal Cannula Oxygen Flow Rate 4 02/05/25 09:56 Temperature Pulse Rate 126 H Respiratory Rate Blood Pressure Pulse Oximetry 100 Oxygen Delivery Oxygen Flow Rate Intake/Output Intake/Output: Intake & Output 02/02/25 02/03/25 02/04/25 02/05/25 23:59 23:59 23:59 23:59 Intake Total 104 4024 630 Output Total 1275 600 Balance 104 2749 30 Meds/Results Medications: Active Medications Generic Name Dose Route Start Last Admin Trade Name Freq PRN Reason Stop Dose Admin Acetaminophen 650 mg 02/04/25 01:51 02/04/25 22:33 Acetaminophen 325 Mg Tablet PO 650 mg Q6H PRN Administration Mild Pain (1-3) or Fever Acyclovir 400 mg 02/04/25 09:00 02/05/25 12:17 Acyclovir 400 Mg Tablet PO 400 mg TID ROSA MARIA Administration Albuterol/Ipratropium 3 ml 02/04/25 02:00 02/05/25 09:32 Ipratropium 0.5 Mg/Albuterol Sulfate 2.5 Mg Ampul.Neb 3 Ml INHALATION 3 ml Q6HRT ROSA MARIA Administration Clopidogrel Bisulfate 75 mg 02/04/25 09:00 02/05/25 09:17 Clopidogrel Bisulfate 75 Mg Tablet PO 75 mg DAILY ROSA MARIA Administration Dextrose 12.5 gm 02/04/25 01:51 Dextrose 50% 25 Gm/50 Ml Syringe IV PUSH PRN PRN Hypoglycemia Protocol Ethambutol HCl 800 mg 02/04/25 09:00 02/05/25 09:18 Ethambutol Hcl 400 Mg Tablet PO 800 mg DAILY ROSA MARIA Administration Fluticasone/Umeclidinium/Vilanterol 1 puff 02/04/25 08:00 02/05/25 09:53 Fluticasone/Umeclidin/Vilanter 200-62.5-25 Mcg Ellipta INHALATION 1 puff DAILYRT ROSA MARIA Administration Gabapentin 300 mg 02/04/25 09:00 02/05/25 12:17 Gabapentin 300 Mg Capsule PO 300 mg QID ROSA MARIA Administration Glucagon 1 mg 02/04/25 01:51 Glucagon For Inj 1 Mg Vial IM PRN PRN Hypoglycemia Protocol Glucose 15 gm 02/04/25 01:51 Glucose Oral Gel 15 Gm Of Glucse In 37.5 Gm Tube PO PRN PRN Hypoglycemia Protocol Guaifenesin 600 mg 02/04/25 09:00 02/05/25 09:17 Guaifenesin 12 Hr 600 Mg Tabcr PO 600 mg Q12HR ROSA MARIA Administration Dextrose 1,000 mls @ 100 mls/hr 02/04/25 01:51 Dextrose 5% 1,000 Ml IVPB PRN PRN Hypoglycemia Protocol Cefepime HCl 2 gm in 50 mls @ 100 mls/hr 02/04/25 06:00 02/05/25 05:44 Maxipime 2 Gm/Ns 50 Ml IVPB 100 mls/hr Q8H ROSA MARIA Administration Azithromycin 500 mg in 250 mls @ 250 mls/hr 02/04/25 08:00 02/05/25 09:19 Zithromax IVPB 250 mls/hr Q24H ROSA MARIA Administration Insulin Aspart 2 - 5 units 02/04/25 08:00 02/05/25 12:18 Insulin Aspart (*Bkc) 100 Units/Ml SUB-Q 2 units TIDWM ROSA MARIA Administration Protocol Insulin Aspart 1 - 2 units 02/04/25 21:00 02/04/25 22:00 Insulin Aspart (*Bkc) 100 Units/Ml SUB-Q 1 units HS ROSA MARIA Administration Protocol Melatonin 5 mg 02/04/25 23:28 02/04/25 23:37 Melatonin 5 Mg Tablet PO 5 mg HS PRN Administration Sleep Miscellaneous Information 0 each 02/04/25 06:45 02/04/25 14:03 Clofazimine 50 Mg Capsule- Nonformulary. Please Obtain A Home Supply If Possible. XX 03/06/25 06:44 Not Given CLARIFY ROSA MARIA Miscellaneous Information 0 each 02/04/25 06:45 02/04/25 14:03 Isavuconazonium- Nonformulary. Please Obtain A Home Supply If Possible. XX 03/06/25 06:44 Not Given CLARIFY ROSA MARIA Montelukast Sodium 10 mg 02/04/25 21:00 02/04/25 19:56 Montelukast Sodium 10 Mg Tablet PO 10 mg HS ROSA MARIA Administration Mycophenolate Mofetil 1,000 mg 02/04/25 09:00 02/05/25 09:17 Mycophenolate Mofetil 250 Mg Capsule PO 1,000 mg Q12HR ROSA MARIA Administration Non-Formulary Medication 100 mg 02/04/25 09:00 Clofazimine PO 03/06/25 08:59 DAILY ROSA MARIA Non-Formulary Medication 372 mg 02/04/25 09:00 Isavuconazonium Sulfate [Cresemba] PO 03/06/25 08:59 DAILY ROSA MARIA Pantoprazole Sodium 40 mg 02/04/25 09:00 02/05/25 09:16 Pantoprazole 40 Mg Tablet PO 40 mg BID ROSA MARIA Administration Rivaroxaban 20 mg 02/04/25 17:00 02/04/25 16:30 Rivaroxaban 20 Mg Tablet PO 20 mg DAILY@1700 ROSA MARIA Administration Tacrolimus 0.5 mg 02/05/25 09:00 02/05/25 09:17 Tacrolimus 0.5 Mg Capsule PO 0.5 mg Q48H ROSA MARIA Administration Radiology Results: ITS Impressions Chest X-Ray 02/03/25 18:28 IMPRESSION: No focal infiltrate or effusion. Chest CTA 02/03/25 23:18 IMPRESSION: No pulmonary embolus. No thoracic aortic dissection. Redemonstration of chronic panlobular emphysematous change with right apical consolidation with cavitary change and pleural-based scarring within the left upper lobe with cavitary change. Labs Labs: Laboratory Results - last 24 hr 02/04/25 02/04/25 02/05/25 16:12 21:39 01:22 WBC RBC Hgb Hct MCV MCH MCHC RDW Plt Count MPV Immature Gran % (Auto) Neut % (Auto) Lymph % (Auto) [place] % (Auto) Eos % (Auto) Baso % (Auto) Lymph # (Auto) [place] # (Auto) Eos # (Auto) Baso # (Auto) Abs Immat Gran (auto) Absolute Neuts (auto) Absolute Nucleated RBC Total Counted Neutrophils % (Manual) Band Neutrophils % Lymphocytes % (Manual) Monocytes % (Manual) Nucleated RBC % Abs Neuts (Manual) Abs Lymphs (Manual) Abs Monocytes (Manual) Platelet Estimate Anisocytosis Target Cells Schistocytes Sodium Potassium Chloride Carbon Dioxide Anion Gap BUN Creatinine Estim Creat Clear Calc Estimated GFR Glucose POC Capillary Glucose 263 H 256 H 259 H Calcium Magnesium Total Bilirubin AST ALT Alkaline Phosphatase Total Protein Albumin Vitamin B12 Folate 02/05/25 02/05/25 02/05/25 04:47 07:51 11:23 WBC 24.8 H RBC 2.77 L Hgb 9.5 L Hct 28.4 L MCV 102.5 H MCH 34.3 H MCHC 33.5 RDW 18.7 H Plt Count 262 MPV 10.2 Immature Gran % (Auto) 3.1 H Neut % (Auto) 87.3 H Lymph % (Auto) 5.1 L [place] % (Auto) 4.3 Eos % (Auto) 0.0 Baso % (Auto) 0.2 Lymph # (Auto) 1.26 [place] # (Auto) 1.1 H Eos # (Auto) 0.0 Baso # (Auto) 0.1 Abs Immat Gran (auto) 0.77 H Absolute Neuts (auto) 21.6 H Absolute Nucleated RBC 0.000 Total Counted 100 Neutrophils % (Manual) 86 H Band Neutrophils % 7 H Lymphocytes % (Manual) 5.0 L Monocytes % (Manual) 2 L Nucleated RBC % 0.0 Abs Neuts (Manual) 23.06 H Abs Lymphs (Manual) 1.24 Abs Monocytes (Manual) 0.49 Platelet Estimate Adequate Anisocytosis 1+ Target Cells 1+ Schistocytes None seen Sodium 136 L Potassium 4.8 Chloride 103 Carbon Dioxide 28 Anion Gap 5 BUN 23 H Creatinine 0.74 Estim Creat Clear Calc 73 Estimated GFR > 60 Glucose 271 H POC Capillary Glucose 171 H 216 H Calcium 8.3 L Magnesium 1.9 Total Bilirubin 0.3 AST 24 ALT 16 Alkaline Phosphatase 118 Total Protein 7.0 Albumin 2.9 L Vitamin B12 626.0 Folate 4.9 Quality VTE Prophylaxis VTE prophylaxis: pharmacologic ordered (On rivaroxaban)
[2025-02-05] MEDS: ACETAMINOPHEN 325 MG TABLET 650 MG PO ×2 (13:22→18:35)
[2025-02-05 16:17] LABS: Glucose Point of Care 165 mg/dl (65-105)
[2025-02-05] MEDS: RIVAROXABAN 20 MG TABLET PO (17:09)
[2025-02-05 20:39] LABS: Glucose Point of Care 248 mg/dl (65-105)
[2025-02-05] MEDS: MONTELUKAST SODIUM 10 MG TABLET PO (20:40)
[2025-02-05] MEDS: MELATONIN 5 MG TABLET PO (20:40)
[2025-02-05 20:54] LABS: Glucose Point of Care 231 mg/dl (65-105)
[2025-02-06] VITALS (14 sets, daily range): BP systolic 105–139; BP diastolic 68–82; PULSE 76–95; RESP 17–20; TEMP 36.3–36.8; O2SAT 97–100
[2025-02-06] MEDS: IPRATROPIUM 0.5 MG/ALBUTEROL SULFATE 2.5 MG AMPUL.NEB 3 ML INHALATION ×4 (01:32→20:05)
[2025-02-06 05:43] LABS: Basophils Percent Auto 0.2 % (0.2-1.2); Eosinophils Percent Auto 0.1 % (0-4.4); Hematocrit 31.4 % (42.0-52.0); Hemoglobin 10.4 g/dL (14.0-18.0); Immature Granulocyte Absolute 0.24 K/mm3 (0.00-0.031); Immature Granulocyte Percent A 1.3 % (0-0.5); Lymphocytes Absolute Auto 3.35 K/mm3 (0.9-3.2); Lymphocytes Percent Auto 17.8 % (18.3-44.2); Mean Corpuscular HGB Conc 33.1 g/dl (32-36); Mean Corpuscular Hemoglobin 33.9 pg (26-34); Mean Corpuscular Volume 102.3 fl (80-100); Mean Platelet Volume 9.9 fl (7.4-10.4); Monocytes Percent Auto 5.5 % (2.6-8.5); Neutrophils Absolute Auto 14.2 K/mm3 (1.3-6.7); Neutrophils Percent Auto 75.1 % (45.5-73.1); Nucleated Red Blood Cells Perc 0.1 % (0.0-0.2); Platelet Count Result 288 k/mm3 (150-375); Red Blood Count 3.07 M/mm3 (4.6-6.20); Red Cell Distribution Width 19.1 % (11.5-14.5); White Blood Count 18.8 K/mm3 (4.5-10.0)
[2025-02-06] MEDS: CEFEPIME 2 GM/NS 50 ML 2 GM/50 ML BAG IVPB ×3 (05:51→22:53)
[2025-02-06 05:56] LABS: Alanine Aminotransferase 15 U/L (6-50); Albumin Level 3.2 g/dL (3.5-5.1); Alkaline Phosphatase 135 U/L (38-126); Anion Gap 4 mmol/L (4-12); Aspartate Amino Transferase 27 U/L (17-59); Bilirubin,Total 0.5 mg/dL (0.2-1.3); Blood Urea Nitrogen 23 mg/dL (9-20); Carbon Dioxide 34 mmol/L (22-30); Chloride 102 mmol/L (98-107); Estimated CRCL calculation 75 ml/min; Estimated Glomerular Filt Rate > 60; Glucose 141 mg/dL (65-110); Magnesium 1.9 mg/dL (1.6-2.3); Potassium 4.6 mmol/L (3.4-5.0); Sodium 140 mmol/L (137-145)
[2025-02-06] MEDS: ACETAMINOPHEN 325 MG TABLET 650 MG PO ×2 (06:10→19:58)
[2025-02-06] MEDS: FLUTICASONE/UMECLIDIN/VILANTER 200-62.5-25 MCG ELLIPTA 1 PUFF INHALATION (08:00)
--- NOTE | 2025-02-06 08:06 | ECG_ITS ---
Test Date: 2025-02-06 11:00:52 Measurements Intervals [place] Rate: 95 P: 85 LA: 136 QRS: 94 QRSD: 93 T: 133 QT: 346 QTc: 435 Interpretive Statements SINUS RHYTHM BORDERLINE RIGHT AXIS DEVIATION [QRS AXIS > 90] MODERATE T-WAVE ABNORMALITY, CONSIDER LATERAL ISCHEMIA [-0.1+ mV T-WAVE IN I/aVL/V5/V6] Compared to ECG 02/03/2025 17:59:13 TACHYCARDIA NO LONGER PRESENT Electronically Signed On 02-06-2025 17:38:49 CDT by Chin La M.D.
[2025-02-06 08:11] LABS: Glucose Point of Care 137 mg/dl (65-105)
[2025-02-06] MEDS: NITROGLYCERIN OINTMENT 1 INCH DOSE 0.5 INCH TRANSDERM (09:01)
[2025-02-06] MEDS: AZITHROMYCIN 500 MG/NS 250 ML 500 MG/250 ML BAG 250 MG IVPB (09:01)
[2025-02-06] MEDS: ETHAMBUTOL HCL 400 MG TABLET 800 MG PO (09:02)
[2025-02-06] MEDS: ACYCLOVIR 400 MG TABLET PO ×3 (09:02→16:21)
[2025-02-06] MEDS: CLOPIDOGREL BISULFATE 75 MG TABLET PO (09:02)
[2025-02-06] MEDS: mycophenolate mofetiL 250 MG CAPSULE 1000 MG PO ×2 (09:03→19:58)
[2025-02-06] MEDS: guaiFENesin 12 HR 600 MG TABCR PO ×2 (09:03→19:58)
[2025-02-06] MEDS: GABAPENTIN 400 MG CAPSULE PO ×4 (09:03→19:58)
[2025-02-06] MEDS: PANTOPRAZOLE 40 MG TABLET PO ×2 (09:03→16:21)
--- NOTE | 2025-02-06 09:43 | PM.PNPUL ---
Progress Note: A&P Assessment and Plan (1) Acute exacerbation of chronic obstructive airways disease: Code(s): J44.1 - Chronic obstructive pulmonary disease with (acute) exacerbation Status: Acute Assessment and Plan: This 59-year-old man, with a history of advanced COPD and treatment for atypical mycobacterial infection, presented with a few days of increasing shortness of breath, wheezing, and hypoxemia. Chest imaging studies showed no new infiltrates that would suggest a lower respiratory tract infection or congestive heart failure. His hypoxemia and wheezing responded to treatment with a single dose of Decadron administered by EMS en route to the emergency room, along with short-acting bronchodilators and a new antibiotic regimen. Currently, his respiratory status has improved, and the patient reports feeling much better, though not yet back to baseline. He has not been able to produce any sputum for culture. His chronic cough and sputum production have subsided following treatment for his atypical mycobacterial infection. He exhibited no hypercapnia on arterial blood gases, and his FiO2 requirement has decreased following treatment for his wheezing. Over the last 24 hours while the patient on antibiotics his respiratory status is stable. He has mild expiratory wheezing. White cell count is trending down. Chest x-ray showed no active lung disease. Plan: We will continue with the current regimen, utilizing nebulized short-acting bronchodilators and prescribed antibiotics. Steroids will be avoided due to his immunosuppressive status and history of atypical mycobacterial infection. Repeat CBC in a.m. will continue to follow the patient along with you. (2) Hypoxemic respiratory failure, chronic: Code(s): J96.11 - Chronic respiratory failure with hypoxia Status: Acute (3) Chronic anticoagulation: Code(s): Z79.01 - halfway (current) use of 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 Status: Acute (4) Diabetes 1.5, managed as type 2: Code(s): E13.9 - Other specified diabetes mellitus without complications Status: Acute (5) Acute myeloblastic leukemia, in remission: Code(s): C92.01 - Acute myeloblastic leukemia, in remission Status: Acute (6) Immunocompromised patient: Code(s): D84.9 - Immunodeficiency, unspecified Status: Acute (7) Mycobacterium avium complex: Code(s): A31.0 - Pulmonary mycobacterial infection Status: Acute Subjective Date/time seen: 02/06/25 09:43 Interval history: Patient has no new respiratory symptoms. Receiving antibiotics for lower respiratory tract infection, WBC initially low but currently higher. Over the last 24 hours WBC trending down Review of Systems Review of Systems: All systems reviewed & are unremarkable except as noted in HPI and below (HPI and below) Exam Narrative: GENERAL APPEARANCE: Well developed, well nourished, alert and cooperative, and appears to be in no acute distress while on supplemental oxygen via nasal cannula SKIN: Inspection of the skin reveals no rashes, ulcerations or petechiae. HEENT: Sclerae anicteric and conjunctivae pink and moist. Extraocular movements were intact and pupils were equal, round. Ears cerumen impaction bilaterally. NECK: Supple. There was no thyroid enlargement, and no tenderness, or masses were felt. CHEST: Normal AP diameter and normal contour without any kyphoscoliosis. LUNGS: Hyperinflated lungs, distant breath sounds no wheezing CARDIAC: There was a regular rate and rhythm without any murmurs, gallops, rubs. ABDOMEN: Soft and nontender with normal bowel sounds. There was no organomegaly. LYMPH NODES: No lymphadenopathy was appreciated in the neck. EXTREMITIES: No cyanosis, clubbing or edema. NEUROLOGIC: Alert and oriented x 3. Normal affect. Objective Data Vital Signs Vital Signs: Vital Signs - 24 hr 02/05/25 09:55 02/05/25 09:56 02/05/25 13:52 Temperature Pulse Rate 120 H 126 H 91 Respiratory Rate 24 H 20 Blood Pressure Pulse Oximetry 100 99 Oxygen Delivery Nasal Cannula Oxygen Flow Rate 4 02/05/25 13:52 02/05/25 13:53 02/05/25 14:01 Temperature 36.1 C L Pulse Rate 91 93 92 Respiratory Rate 20 18 20 Blood Pressure 93/55 L Pulse Oximetry 95 Oxygen Delivery Oxygen Flow Rate 02/05/25 20:00 02/05/25 20:24 02/05/25 20:35 Temperature Pulse Rate 84 84 Respiratory Rate 18 18 Blood Pressure Pulse Oximetry 99 Oxygen Delivery Nasal Cannula Oxygen Flow Rate 4 02/05/25 21:06 02/06/25 00:00 02/06/25 01:32 Temperature 36.4 C L Pulse Rate 84 85 85 Respiratory Rate 18 18 18 Blood Pressure 105/68 Pulse Oximetry 96 99 Oxygen Delivery Nasal Cannula Oxygen Flow Rate 4 02/06/25 01:44 02/06/25 06:14 02/06/25 08:02 Temperature 36.3 C L Pulse Rate 85 84 76 Respiratory Rate 18 18 20 Blood Pressure 139/82 Pulse Oximetry 100 Oxygen Delivery Oxygen Flow Rate 02/06/25 08:16 Temperature Pulse Rate 80 Respiratory Rate 20 Blood Pressure Pulse Oximetry Oxygen Delivery Oxygen Flow Rate Intake/Output Intake/Output: Intake & Output 02/03/25 02/04/25 02/05/25 02/06/25 23:59 23:59 23:59 23:59 Intake Total 104 4024 2130 Output Total 1275 2400 3 Balance 104 2749 -270 -3 Meds/Results Medications: Active Medications Generic Name Dose Route Start Last Admin Trade Name Freq PRN Reason Stop Dose Admin Acetaminophen 650 mg 02/04/25 01:51 02/06/25 06:10 Acetaminophen 325 Mg Tablet PO 650 mg Q6H PRN Administration Mild Pain (1-3) or Fever Acyclovir 400 mg 02/04/25 09:00 02/06/25 09:02 Acyclovir 400 Mg Tablet PO 400 mg TID ROSA MARIA Administration Albuterol/Ipratropium 3 ml 02/04/25 02:00 02/06/25 08:00 Ipratropium 0.5 Mg/Albuterol Sulfate 2.5 Mg Ampul.Neb 3 Ml INHALATION 3 ml Q6HRT ROSA MARIA Administration Clopidogrel Bisulfate 75 mg 02/04/25 09:00 02/06/25 09:02 Clopidogrel Bisulfate 75 Mg Tablet PO 75 mg DAILY ROSA MARIA Administration Dextrose 12.5 gm 02/04/25 01:51 Dextrose 50% 25 Gm/50 Ml Syringe IV PUSH PRN PRN Hypoglycemia Protocol Ethambutol HCl 800 mg 02/04/25 09:00 02/06/25 09:02 Ethambutol Hcl 400 Mg Tablet PO 800 mg DAILY ROSA MARIA Administration Fluticasone/Umeclidinium/Vilanterol 1 puff 02/04/25 08:00 02/06/25 08:00 Fluticasone/Umeclidin/Vilanter 200-62.5-25 Mcg Ellipta INHALATION 1 puff DAILYRT ROSA MARIA Administration Gabapentin 400 mg 02/06/25 09:00 02/06/25 09:03 Gabapentin 400 Mg Capsule PO 400 mg QID ROSA MARIA Administration Glucagon 1 mg 02/04/25 01:51 Glucagon For Inj 1 Mg Vial IM PRN PRN Hypoglycemia Protocol Glucose 15 gm 02/04/25 01:51 Glucose Oral Gel 15 Gm Of Glucse In 37.5 Gm Tube PO PRN PRN Hypoglycemia Protocol Guaifenesin 600 mg 02/04/25 09:00 02/06/25 09:03 Guaifenesin 12 Hr 600 Mg Tabcr PO 600 mg Q12HR ROSA MARIA Administration Dextrose 1,000 mls @ 100 mls/hr 02/04/25 01:51 Dextrose 5% 1,000 Ml IVPB PRN PRN Hypoglycemia Protocol Cefepime HCl 2 gm in 50 mls @ 100 mls/hr 02/04/25 06:00 02/06/25 05:51 Maxipime 2 Gm/Ns 50 Ml IVPB 100 mls/hr Q8H ROSA AMRIA Administration Azithromycin 500 mg in 250 mls @ 250 mls/hr 02/04/25 08:00 02/06/25 09:01 Zithromax IVPB 250 mls/hr Q24H ROSA MARIA Administration Insulin Aspart 2 - 5 units 02/04/25 08:00 02/06/25 08:40 Insulin Aspart (*Bkc) 100 Units/Ml SUB-Q Not Given TIDWM ROSA MARIA Protocol Insulin Aspart 1 - 2 units 02/04/25 21:00 02/05/25 20:43 Insulin Aspart (*Bkc) 100 Units/Ml SUB-Q 1 units HS ROSA MARIA Administration Protocol Melatonin 5 mg 02/04/25 23:28 02/05/25 20:40 Melatonin 5 Mg Tablet PO 5 mg HS PRN Administration Sleep Miscellaneous Information 0 each 02/04/25 06:45 02/06/25 08:39 Clofazimine 50 Mg Capsule- Nonformulary. Please Obtain A Home Supply If Possible. XX 03/06/25 06:44 Not Given CLARIFY ROAS MARIA Miscellaneous Information 0 each 02/04/25 06:45 02/06/25 08:39 Isavuconazonium- Nonformulary. Please Obtain A Home Supply If Possible. XX 03/06/25 06:44 Not Given CLARIFY ROSA MARIA Montelukast Sodium 10 mg 02/04/25 21:00 02/05/25 20:40 Montelukast Sodium 10 Mg Tablet PO 10 mg HS ROSA MARIA Administration Mycophenolate Mofetil 1,000 mg 02/04/25 09:00 02/06/25 09:03 Mycophenolate Mofetil 250 Mg Capsule PO 1,000 mg Q12HR ROSA MARIA Administration Non-Formulary Medication 100 mg 02/04/25 09:00 Clofazimine PO 03/06/25 08:59 DAILY ROSA MARIA Non-Formulary Medication 372 mg 02/04/25 09:00 Isavuconazonium Sulfate [Cresemba] PO 03/06/25 08:59 DAILY ROSA MARIA Pantoprazole Sodium 40 mg 02/04/25 09:00 02/06/25 09:03 Pantoprazole 40 Mg Tablet PO 40 mg BID ROSA MARIA Administration Rivaroxaban 20 mg 02/04/25 17:00 02/05/25 17:09 Rivaroxaban 20 Mg Tablet PO 20 mg DAILY@1700 ROSA MARIA Administration Tacrolimus 0.5 mg 02/05/25 09:00 02/05/25 09:17 Tacrolimus 0.5 Mg Capsule PO 0.5 mg Q48H ROSA MARIA Administration Radiology Results: ITS Impressions Chest CTA 02/03/25 23:18 IMPRESSION: No pulmonary embolus. No thoracic aortic dissection. Redemonstration of chronic panlobular emphysematous change with right apical consolidation with cavitary change and pleural-based scarring within the left upper lobe with cavitary change. Chest X-Ray 02/06/25 06:18 Impression: 1: No acute cardiopulmonary disease. Stable chronic changes. Labs Labs: Laboratory Results - last 24 hr 02/05/25 02/05/25 02/05/25 04:47 11:23 16:14 WBC RBC Hgb Hct MCV MCH MCHC RDW Plt Count MPV Immature Gran % (Auto) Neut % (Auto) Lymph % (Auto) [place] % (Auto) Eos % (Auto) Baso % (Auto) Lymph # (Auto) [place] # (Auto) Eos # (Auto) Baso # (Auto) Abs Immat Gran (auto) Absolute Neuts (auto) Absolute Nucleated RBC Nucleated RBC % Sodium Potassium Chloride Carbon Dioxide Anion Gap BUN Creatinine Estim Creat Clear Calc Estimated GFR Glucose POC Capillary Glucose 216 H 165 H Calcium Magnesium Total Bilirubin AST ALT Alkaline Phosphatase Total Protein Albumin Vitamin B12 626.0 Folate 4.9 02/05/25 02/05/25 02/06/25 20:18 20:39 05:22 WBC 18.8 H RBC 3.07 L Hgb 10.4 L Hct 31.4 L MCV 102.3 H MCH 33.9 MCHC 33.1 RDW 19.1 H Plt Count 288 MPV 9.9 Immature Gran % (Auto) 1.3 H Neut % (Auto) 75.1 H Lymph % (Auto) 17.8 L [place] % (Auto) 5.5 Eos % (Auto) 0.1 Baso % (Auto) 0.2 Lymph # (Auto) 3.35 H [place] # (Auto) 1.0 H Eos # (Auto) 0.0 Baso # (Auto) 0.0 Abs Immat Gran (auto) 0.24 H Absolute Neuts (auto) 14.2 H Absolute Nucleated RBC 0.020 H Nucleated RBC % 0.1 Sodium 140 Potassium 4.6 Chloride 102 Carbon Dioxide 34 H Anion Gap 4 BUN 23 H Creatinine 0.73 Estim Creat Clear Calc 75 Estimated GFR > 60 Glucose 141 H POC Capillary Glucose 248 H 231 H Calcium 9.0 Magnesium 1.9 Total Bilirubin 0.5 AST 27 ALT 15 Alkaline Phosphatase 135 H Total Protein 7.0 Albumin 3.2 L Vitamin B12 Folate 02/06/25 08:08 WBC RBC Hgb Hct MCV MCH MCHC RDW Plt Count MPV Immature Gran % (Auto) Neut % (Auto) Lymph % (Auto) [place] % (Auto) Eos % (Auto) Baso % (Auto) Lymph # (Auto) [place] # (Auto) Eos # (Auto) Baso # (Auto) Abs Immat Gran (auto) Absolute Neuts (auto) Absolute Nucleated RBC Nucleated RBC % Sodium Potassium Chloride Carbon Dioxide Anion Gap BUN Creatinine Estim Creat Clear Calc Estimated GFR Glucose POC Capillary Glucose 137 H Calcium Magnesium Total Bilirubin AST ALT Alkaline Phosphatase Total Protein Albumin Vitamin B12 Folate
--- NOTE | 2025-02-06 10:06 | PM.DS ---
DS: Admitting Diagnosis Discharge Date 02/06/25 Admitting Diagnosis Shortness of breath. DS: Discharge Diagnosis Discharge Diagnosis (1) Acute exacerbation of chronic obstructive pulmonary disease: Code(s): J44.1 - Chronic obstructive pulmonary disease with (acute) exacerbation Status: Acute DS: Summary Hospital Course Hospital Course: This is a 59-year-old male with a complicated medical history which includes chronic respiratory failure on home oxygen, chronic obstructive pulmonary disease, pulmonary embolism, Pseudomonas pneumonia, cavitary pulmonary mycobacterium avium complex, acute myeloid leukemia in remission status post hematopoietic stem cell transplantation in 2008 with resultant chronic iekop-gbxkkn-okfg disease on anti rejection medications and antifungal prophylaxis, coronary artery disease, congestive heart failure with reduced ejection fraction, and type 2 diabetes mellitus who presented to the emergency department via EMS for evaluation of shortness of breath. The patient provides the following history. He is chronically short of breath at baseline however reports worsening dyspnea on lesser and lesser exertion over the past several days. He has a productive cough which is unchanged. He has been using his inhalers and nebulizers at home without much benefit. He denies fever, chills, sweats, chest pain, pleuritic pain, nausea, vomiting, edema, and calf pain. He has no known sick contacts. EMS administered a nebulizer treatment, magnesium, and Decadron in route to the hospital. In the ED: Vital signs on arrival include a temperature of 100.3? F, blood pressure 108/56, pulse 125, respiratory rate 30, SpO2 90% on 6 L. labs were significant for a hemoglobin of 13.5, MCV 101.3, sodium 132, potassium 5.3, carbon dioxide 31, glucose 150, proBNP 2890. Respiratory panel was negative. Chest CTA was negative for pulmonary embolism and dissection and showed chronic findings. He received another nebulizer treatment and is being admitted in this setting for further treatment. Patient was placed on bronchodilators, antibiotics. he receveid Steroid from EMS and it was not continued due to paitnet immunosuppresed state. Pulmonology was involved in his care. WBC went up to 24 however eosinophil was 00 which mean this is likely from steroid. He was treated with CEfepime and azithromycin and discharged today on 8 more days of Augmentin and 3 more days of Azithromycin. Patient is currently on home oxygen baseline and was discharged today to continue follow up pulmonology outpatient. Continue other home meds and follow up with PCP in 3-5 days F/u with Pulmonology in 3-4 weeks Time Spent with Patient Time attestation: Total time spent providing and/or coordinating discharge services: DS: Data Data Completed and Pending Labs on day of discharge: Labs from last 24 hours 02/06/25 02/06/25 02/05/25 08:08 05:22 20:39 WBC 18.8 H RBC 3.07 L Hgb 10.4 L Hct 31.4 L MCV 102.3 H MCH 33.9 MCHC 33.1 RDW 19.1 H Plt Count 288 MPV 9.9 Immature Gran % (Auto) 1.3 H Neut % (Auto) 75.1 H Lymph % (Auto) 17.8 L [place] % (Auto) 5.5 Eos % (Auto) 0.1 Baso % (Auto) 0.2 Lymph # (Auto) 3.35 H [place] # (Auto) 1.0 H Eos # (Auto) 0.0 Baso # (Auto) 0.0 Abs Immat Gran (auto) 0.24 H Absolute Neuts (auto) 14.2 H Absolute Nucleated RBC 0.020 H Nucleated RBC % 0.1 Sodium 140 Potassium 4.6 Chloride 102 Carbon Dioxide 34 H Anion Gap 4 BUN 23 H Creatinine 0.73 Estim Creat Clear Calc 75 Estimated GFR > 60 Glucose 141 H POC Capillary Glucose 137 H 231 H Calcium 9.0 Magnesium 1.9 Total Bilirubin 0.5 AST 27 ALT 15 Alkaline Phosphatase 135 H Total Protein 7.0 Albumin 3.2 L Vitamin B12 Folate 02/05/25 02/05/25 02/05/25 20:18 16:14 11:23 WBC RBC Hgb Hct MCV MCH MCHC RDW Plt Count MPV Immature Gran % (Auto) Neut % (Auto) Lymph % (Auto) [place] % (Auto) Eos % (Auto) Baso % (Auto) Lymph # (Auto) [place] # (Auto) Eos # (Auto) Baso # (Auto) Abs Immat Gran (auto) Absolute Neuts (auto) Absolute Nucleated RBC Nucleated RBC % Sodium Potassium Chloride Carbon Dioxide Anion Gap BUN Creatinine Estim Creat Clear Calc Estimated GFR Glucose POC Capillary Glucose 248 H 165 H 216 H Calcium Magnesium Total Bilirubin AST ALT Alkaline Phosphatase Total Protein Albumin Vitamin B12 Folate 02/05/25 04:47 WBC RBC Hgb Hct MCV MCH MCHC RDW Plt Count MPV Immature Gran % (Auto) Neut % (Auto) Lymph % (Auto) [place] % (Auto) Eos % (Auto) Baso % (Auto) Lymph # (Auto) [place] # (Auto) Eos # (Auto) Baso # (Auto) Abs Immat Gran (auto) Absolute Neuts (auto) Absolute Nucleated RBC Nucleated RBC % Sodium Potassium Chloride Carbon Dioxide Anion Gap BUN Creatinine Estim Creat Clear Calc Estimated GFR Glucose POC Capillary Glucose Calcium Magnesium Total Bilirubin AST ALT Alkaline Phosphatase Total Protein Albumin Vitamin B12 626.0 Folate 4.9 Preliminary micro results at discharge 02/04/25 04:18 Blood Culture - Preliminary Blood 02/04/25 04:18 Blood Culture - Preliminary Blood Discharge Plan Discharge Attending physician on discharge: Diya Michelle Consulting providers: Kranthi Fatima Discharging Clinician: Diya Michelle Anticipated Discharge Date/Time: 02/06/25 10:00 Patient Disposition: Home, Self-Care Activity: as tolerated Diet: regular Discharge Instructions: Follow up [facility] Pulmonology in 3-5 weeks please get the office number from the nurse Patient Instructions: Antibiotic Form Patient Language: Icelandic Stand Alone Forms: General Discharge Information Follow-up/Referrals: Kranthi Fatima MD [Physician] - (F/u with Pulmonology as instructed ) Kirt Lindsay DO [Primary Care Provider] - (F/u with PCP in 3-5 days ) Discharge Medications: New amoxicillin-pot clavulanate 875-125 mg tablet 1 tablet PO Q12H 8 Days Qty: 16 0RF azithromycin 250 mg tablet 250 mg PO DAILY 3 Days Qty: 3 0RF Rx Instructions: start on day 2 of therapy Continued Xarelto 20 mg tablet 20 mg PO QAM Rx Instructions: must administer with evening meal ethambutol 400 mg tablet 1,200 mg PO DAILY clofazimine 50 mg capsule 100 mg PO DAILY Cresemba 186 mg capsule 372 mg PO DAILY pantoprazole 40 mg tablet,delayed release (DR/EC) 40 mg PO Q12H ondansetron 4 mg tablet,disintegrating 4 mg PO Q8H PRN (Reason: Nausea And Vomiting) albuterol sulfate 90 mcg/actuation HFA aerosol inhaler 1 puff INHALATION Q4-6H PRN (Reason: Shortness Of Breath Or Wheezing) gabapentin 300 mg capsule 300 mg PO QID Rx Instructions: takes at 0900/1300/1700/2100 Treleervin Ellipta 200-62.5-25 mcg blister with device 1 inh inhalation DAILY acyclovir 400 mg tablet 400 mg PO TID Qty: 90 0RF clopidogrel 75 mg tablet 75 mg PO DAILY Qty: 90 0RF montelukast [Singulair] 10 mg tablet 10 mg PO HS Qty: 30 0RF mycophenolate mofetil 500 mg tablet 1,000 mg PO Q12H Qty: 10 0RF Rx Instructions: Please call your Oncology to send prescription for this medication and adjust the dose tacrolimus [Prograf] 0.5 mg capsule 0.5 mg PO EVERY OTHER DAY Qty: 30 0RF albuterol sulfate 2.5 mg /3 mL (0.083 %) solution for nebulization See Rx Instructions .ROUTE .COMPLEX Qty: 180 0RF Dose Instruction: INHALE 1 VIAL VIA NEBULIZER EVERY 6 HOURS NEEDED FOR SHORTNESS OF BREATH Rx Instructions: INHALE 1 VIAL VIA NEBULIZER EVERY 6 HOURS NEEDED FOR SHORTNESS OF BREATH No Action azithromycin 250 mg tablet 250 mg PO DAILY Date of admission: 02/04/25 10:34 Primary Care Provider: Kirt Lindsay Admitting Provider: Marcos Sutherland Attending physician on admission: Marcos Sutherland Condition: Improved
[2025-02-06 11:52] LABS: Glucose Point of Care 177 mg/dl (65-105)
[2025-02-06 13:38] LABS: Pneumococcal Antigen Urine NOT DETECTED
--- NOTE | 2025-02-06 15:02 | P.CONCA_ITS ---
Assessment and Plan Assessment and plan (1) Chest pain: Code(s): R07.9 - Chest pain, unspecified Status: Acute Assessment and Plan: Chest tightness commonly associated with COPD. Reviewed EKG showing borderline T wave abnormality. Check troponin. If troponin negative, no further cardiac workup is needed. May need lexiscan stress test as outpatient. (2) Coronary artery disease: Code(s): I25.10 - Atherosclerotic heart disease of [place] coronary artery without angina pectoris Status: Acute Assessment and Plan: Stable. (3) Systolic dysfunction: Code(s): I51.9 - Heart disease, unspecified Status: Acute Assessment and Plan: Mild. Stable. (4) Hyperlipidemia: Code(s): E78.5 - Hyperlipidemia, unspecified Status: Chronic (5) Hypertension: Qualifiers: Hypertension type: primary hypertension Qualified Code(s): I10 - Essential (primary) hypertension Code(s): I10 - Essential (primary) hypertension Status: Acute Assessment and Plan: Stable. (6) Pneumonia: Code(s): J18.9 - Pneumonia, unspecified organism Status: Acute Assessment and Plan: On antibiotics. (7) Chronic obstructive pulmonary disease: Code(s): J44.9 - Chronic obstructive pulmonary disease, unspecified Status: Acute Assessment and Plan: Managed by Pulmonology. History of Present Illness History of Present Illness Consult date/time: 02/06/25 15:02 Reason For Visit: Acute on chronic respiratory failure Narrative: 59 yr old man presents to ER with sob 4 days ago. He has a history of CAD, HI, systolic dysfunction, DM, hypertension, dyslipidemia, smoking, COPD, DVT (followed by Dr. Mcqueen, on Xarelto), leukemia treated with stem cell transplant, esophageal stricture treated with dilatation, anxiety. Reports he was more sob than his usual with coughing and sputum production. He was diagnosed with atypical pneumonia and COPD and reports his breathing was better until steroids were stopped. He has chest tightness in his chest, different than the chest pressure he had with STEMI. He had STEMI on 01/24/23 and [place] [facility] [place] Reports no longer having chest pains. He quit smoking in 2022. He is on oxygen at 4 l/m at night and 5 l/m during the day for walking. He is limited at walking 10 feet due to MILLER. When he swallows food it gets stuck and he may vomit it back up. Denies orthopnea, PND, edema, dizziness, palpitations. Cardiovascular Procedures Head Of Housekeeping:: 12/30/22 Dr. La cath: LAD mild-mod diffuse disease in prox-mid vessel, LCx mid 30-40%, RCA 100% thrombotic mid occlusion; PCI with RACHEL to RCA. Echo/MUGA:: 12/31/22 Echo: EF 45-50%, mild LVE, grade I diastolic dysfunction, inferior akinesis, inferoseptal hypokinesis. Electrophysiology:: 12/30/22 EKG: Sinus bradycardia at 56 bpm, acute inferior STEMI. Review of Systems 2 Review of Systems: All systems reviewed & are unremarkable except as noted in HPI and below Constitutional: Constitutional: Reports as per HPI, Denies chills and Denies fever(s) Cardiovascular: Cardiovascular: Reports as per HPI, Reports chest pain and Denies irregular heart rhythm Respiratory: Respiratory: Reports as per HPI, Reports cough and Reports dyspnea Gastrointestinal: Gastrointestinal: Reports as per HPI, Denies abdominal pain, Reports dysphagia and Reports vomiting Genitourinary: Genitourinary: Reports as per HPI and Denies dysuria Musculoskeletal: Musculoskeletal: Reports as per HPI Neurologic: Reports as per HPI, Denies dizziness and Denies syncope [facility] Past Medical History Medical History (Updated 02/06/25 @ 15:09 by Cal Carranza DO) Type 2 diabetes mellitus Chronic obstructive pulmonary disease Systolic congestive heart failure Pancreatitis Non-tuberculous mycobacterial pneumonia MSSA bacteremia Osteopenia Pseudomonas pneumonia Mycobacterium avium complex Chronic mezoj-xvuqye-jiid disease Chronic respiratory failure with hypoxia, on home oxygen therapy Coronary artery disease Pill esophagitis ST elevation (STEMI) myocardial infarction (12/30/22) Chronic anticoagulation Immunocompromised patient patient on anti rejection medications Positive nasal culture for methicillin resistant Staphylococcus aureus Deep venous thrombosis Chronic obstructive pulmonary disease Sciatica Eczema Anxiety Depression Peyronie's disease Emphysema/COPD Acute myeloid leukemia (2008) status post hematopoietic stem cell transplantation with resultant chronic vythb-nodtsi-dkxj disease. 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 Code status: Full code. Years smoked: 44 Smoking status: Light tobacco smoker Tobacco type: cigarettes Smoking end date: 08/07/22 Additional smoking assessment comments: on nicotine patches, states he is currently on patches Alcohol intake: never Substance use: never Substance use type: does not use Do You Feel Safe in your Home?: Yes Lack of Transportation: No Lack of Food: Never True Current Housing: I Have Housing Concerned About Future Housing: No Difficulty Paying Gas/Electric Bills: No Difficulty Paying for Meds: No Currently Unemployed: No Education: High School Diploma/GED Difficulty w/ Childcare or Family Care: No Living arrangements: with friend(s) Additional living arrangements comments: He lives with his roommate in [place]. Occupation/Education: unemployed Spiritual care concerns: No Agree to blood products: Yes Meds Home Medications and Allergies Home Medications ?Medication ?Instructions ?Recorded ?Confirmed ?Type rivaroxaban 20 mg tablet (Xarelto) 20 mg PO QAM 02/06/23 02/04/25 History acyclovir 400 mg tablet 400 mg PO TID #90 tabs 01/28/24 02/04/25 Rx clopidogrel 75 mg tablet 75 mg PO DAILY #90 tabs 01/28/24 02/04/25 Rx montelukast 10 mg tablet 10 mg PO HS #30 tabs 01/28/24 02/04/25 Rx (Singulair) mycophenolate mofetil 500 mg tablet 1,000 mg (2 x 500 mg) PO Q12H #10 01/28/24 02/04/25 Rx tabs tacrolimus 0.5 mg capsule, 0.5 mg PO EVERY OTHER DAY #30 caps 01/28/24 02/04/25 Rx immediate-release (Prograf) albuterol sulfate 90 mcg/actuation 1 puff inhalation Q4-6H PRN 10/23/24 02/04/25 History aerosol inhaler Shortness Of Breath Or Wheezing ondansetron 4 mg disintegrating 4 mg PO Q8H PRN Nausea And Vomiting 10/23/24 02/04/25 History tablet pantoprazole 40 mg tablet,delayed 40 mg PO Q12H 10/23/24 02/04/25 History release clofazimine 50 mg capsule 100 mg PO DAILY 11/25/24 02/04/25 History ethambutol 400 mg tablet 1,200 mg PO DAILY 11/25/24 02/04/25 History isavuconazonium sulfate 186 mg 372 mg PO DAILY 11/25/24 02/04/25 History capsule (Cresemba) albuterol sulfate 2.5 mg/3 mL See Rx Instructions .Route 01/27/25 02/04/25 Rx (0.083 %) solution for nebulization .COMPLEX #180 mL azithromycin 250 mg tablet 250 mg PO DAILY 02/04/25 02/04/25 History fluticasone fur. 200 mcg-umeclid 1 inh inhalation DAILY 02/04/25 02/04/25 History 62.5 mcg-vilant 25 mcg inhalat.powder (Trelegy Ellipta) gabapentin 300 mg capsule 300 mg PO QID 02/04/25 02/04/25 History Allergies Allergy/AdvReac Type Severity Reaction Status Date / Time adhesive tape AdvReac Unknown PAPER Verified 02/03/25 17:34 TAPE,REDNESS AND IRRITATION Vital Signs Vital Signs - 24 hr 02/05/25 20:00 02/05/25 20:24 02/05/25 20:35 Temperature Pulse Rate 84 84 Respiratory Rate 18 18 Blood Pressure Pulse Oximetry 99 Oxygen Delivery Nasal Cannula Oxygen Flow Rate 4 02/05/25 21:06 02/06/25 00:00 02/06/25 01:32 Temperature 97.5 F L Pulse Rate 84 85 85 Respiratory Rate 18 18 18 Blood Pressure 105/68 Pulse Oximetry 96 99 Oxygen Delivery Nasal Cannula Oxygen Flow Rate 4 02/06/25 01:44 02/06/25 06:14 02/06/25 08:02 Temperature 97.4 F L Pulse Rate 85 84 76 Respiratory Rate 18 18 20 Blood Pressure 139/82 Pulse Oximetry 100 Oxygen Delivery Oxygen Flow Rate 02/06/25 08:16 02/06/25 09:00 Temperature Pulse Rate 80 Respiratory Rate 20 Blood Pressure Pulse Oximetry 100 Oxygen Delivery Nasal Cannula Oxygen Flow Rate 4 Exam 2 Const: General: cooperative, healthy appearing and comfortable Resp: Auscultation: no crackles, no wheezes and diminished lung sounds Cardio: Rate: regular rate Rhythm: regular rhythm Heart sounds: no murmurs Peripheral pulses: dorsalis pedis present GI: GI Palp: No abdominal tenderness and Yes Soft to palpation Neuro: General: oriented to person, oriented to place and oriented to time Extrem: Right lower extremity: no edema Left lower extremity: no edema Results Labs and Meds 02/06/25 05:22 02/06/25 05:22 Lab results: Cardiac Enzymes 02/06/25 Range/Units 05:22 AST 27 (17-59) U/L CBC 02/06/25 Range/Units 05:22 WBC 18.8 H (4.5-10.0) K/mm3 RBC 3.07 L (4.6-6.20) M/mm3 Hgb 10.4 L (14.0-18.0) g/dL Hct 31.4 L (42.0-52.0) % Plt Count 288 (150-375) k/mm3 Lymph # (Auto) 3.35 H (0.9-3.2) K/mm3 [place] # (Auto) 1.0 H (0.1-0.6) K/mm3 Eos # (Auto) 0.0 (0-0.3) K/mm3 Baso # (Auto) 0.0 (0.0-0.1) K/mm3 Comprehensive Metabolic Panel 02/06/25 Range/Units 05:22 Sodium 140 (137-145) mmol/L Potassium 4.6 (3.4-5.0) mmol/L Chloride 102 (98-107) mmol/L Carbon Dioxide 34 H (22-30) mmol/L BUN 23 H (9-20) mg/dL Creatinine 0.73 (0.7-1.3) mg/dL Glucose 141 H (65-110) mg/dL Calcium 9.0 (8.4-10.2) mg/dL AST 27 (17-59) U/L ALT 15 (6-50) U/L Alkaline Phosphatase 135 H (38-126) U/L Total Protein 7.0 (6.3-8.2) g/dL Albumin 3.2 L (3.5-5.1) g/dL Intake and Output 02/05/25 02/06/25 02/06/25 23:59 07:59 15:59 Intake Total 1150 50 480 Output Total 850 3 Balance 300 47 480 Intake: IV 50 50 Cefepime 2 gm/Ns 50 ml 2 gm In 50 50 50 ml @ 100 mls/hr IVPB Q8H [facility] Rx#:[id number] Oral 1100 480 Output: Urine 850 3 Other: # Unmeasured Voids 3 Patient Weight 02/06/25 23:59 Weight 55.8 kg
[2025-02-06 15:53] LABS: Troponin I < 0.012 ng/mL (0.000-0.034)
[2025-02-06] MEDS: RIVAROXABAN 20 MG TABLET PO (16:21)
[2025-02-06 17:14] LABS: Mycoplasma IgM Antibody Titer 168 U/mL
[2025-02-06 17:33] LABS: Glucose Point of Care 103 mg/dl (65-105)
[2025-02-06] MEDS: MONTELUKAST SODIUM 10 MG TABLET PO (19:58)
[2025-02-06] MEDS: MELATONIN 5 MG TABLET PO (19:59)
[2025-02-06 20:17] LABS: Glucose Point of Care 197 mg/dl (65-105)
[2025-02-06 22:13] LABS: Legionella pneumophila Ag Ur NOT DETECTED
[2025-02-06] MEDS: GABAPENTIN 100 MG CAPSULE 200 MG PO (23:31)
[2025-02-07] VITALS (15 sets, daily range): BP systolic 102–114; BP diastolic 63–73; PULSE 81–115; RESP 17–20; TEMP 36.6–36.8; O2SAT 93–100
[2025-02-07] MEDS: IPRATROPIUM 0.5 MG/ALBUTEROL SULFATE 2.5 MG AMPUL.NEB 3 ML INHALATION ×4 (02:02→19:48)
[2025-02-07] MEDS: HYDROcodone/acetaminophen (*CRX) 5-325 MG TABLET 1 TAB PO (05:29)
[2025-02-07] MEDS: CEFEPIME 2 GM/NS 50 ML 2 GM/50 ML BAG IVPB ×3 (05:29→21:16)
[2025-02-07 08:06] LABS: Glucose Point of Care 114 mg/dl (65-105)
[2025-02-07] MEDS: FLUTICASONE/UMECLIDIN/VILANTER 200-62.5-25 MCG ELLIPTA 1 PUFF INHALATION (08:28)
[2025-02-07] MEDS: ETHAMBUTOL HCL 400 MG TABLET 800 MG PO (09:09)
[2025-02-07] MEDS: GABAPENTIN 400 MG CAPSULE PO ×3 (09:09→17:56)
[2025-02-07] MEDS: TACROLIMUS 0.5 MG CAPSULE PO (09:09)
[2025-02-07] MEDS: PANTOPRAZOLE 40 MG TABLET PO ×2 (09:09→17:56)
[2025-02-07] MEDS: guaiFENesin 12 HR 600 MG TABCR PO (09:09)
[2025-02-07] MEDS: mycophenolate mofetiL 250 MG CAPSULE 1000 MG PO (09:09)
[2025-02-07] MEDS: CLOPIDOGREL BISULFATE 75 MG TABLET PO (09:09)
[2025-02-07] MEDS: ACYCLOVIR 400 MG TABLET PO ×3 (09:10→17:56)
[2025-02-07] MEDS: AZITHROMYCIN 500 MG/NS 250 ML 500 MG/250 ML BAG 250 MG IVPB (09:11)
--- NOTE | 2025-02-07 10:21 | P.PNPL_ITS ---
Progress Note: A&P Assessment and Plan (1) Acute exacerbation of chronic obstructive airways disease: Code(s): J44.1 - Chronic obstructive pulmonary disease with (acute) exacerbation Status: Acute Assessment and Plan: This 59-year-old man, with a history of advanced COPD and treatment for atypical mycobacterial infection, presented with a few days of increasing shortness of breath, wheezing, and hypoxemia. Chest imaging studies showed no new infiltrates that would suggest a lower respiratory tract infection or congestive heart failure. His hypoxemia and wheezing responded to treatment with a single dose of Decadron administered by EMS en route to the emergency room, along with short- acting bronchodilators and a new antibiotic regimen. Currently, his respiratory status has improved, and the patient reports feeling much better, though not yet back to baseline. He has not been able to produce any sputum for culture. His chronic cough and sputum production have subsided following treatment for his atypical mycobacterial infection. He exhibited no hypercapnia on arterial blood gases, and his FiO2 requirement has decreased following treatment for his wheezing. Over the last 24 hours while the patient on antibiotics his respiratory status is stable. Distant breath sounds with no wheezing on today's exam. White cell count was trending down couple days ago. Plan: We will continue with the current regimen, utilizing nebulized short- acting bronchodilators and prescribed antibiotics. Steroids will be avoided due to his immunosuppressive status and history of atypical mycobacterial infection. Repeat CBC in a.m. will continue to follow the patient along with you. (2) Hypoxemic respiratory failure, chronic: Code(s): J96.11 - Chronic respiratory failure with hypoxia Status: Acute (3) Chronic anticoagulation: Code(s): Z79.01 - [employer] (current) use of 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 Status: Acute (4) Diabetes 1.5, managed as type 2: Code(s): E13.9 - Other specified diabetes mellitus without complications Status: Acute (5) Acute myeloblastic leukemia, in remission: Code(s): C92.01 - Acute myeloblastic leukemia, in remission Status: Acute (6) Immunocompromised patient: Code(s): D84.9 - Immunodeficiency, unspecified Status: Acute (7) Mycobacterium avium complex: Code(s): A31.0 - Pulmonary mycobacterial infection Status: Acute Subjective Date/time seen: 02/07/25 10:21 Interval history: Patient state he is doing better but not back at baseline as yet. Mild chest congestion as before. Was evaluated by Cardiology Services. The last chest x- ray showed no active lung disease. Review of Systems Review of Systems: All systems reviewed & are unremarkable except as noted in HPI and below (HPI and below) Exam Narrative: GENERAL APPEARANCE: Well developed, well nourished, alert and cooperative, and appears to be in no acute distress while on supplemental oxygen via nasal cannula SKIN: Inspection of the skin reveals no rashes, ulcerations or petechiae. HEENT: Sclerae anicteric and conjunctivae pink and moist. Extraocular movements were intact and pupils were equal, round. Ears cerumen impaction bilaterally. NECK: Supple. There was no thyroid enlargement, and no tenderness, or masses we re felt. CHEST: Normal AP diameter and normal contour without any kyphoscoliosis. LUNGS: Hyperinflated lungs, distant breath sounds no wheezing CARDIAC: There was a regular rate and rhythm without any murmurs, gallops, rubs. ABDOMEN: Soft and nontender with normal bowel sounds. There was no organomegaly. LYMPH NODES: No lymphadenopathy was appreciated in the neck. EXTREMITIES: No cyanosis, clubbing or edema. NEUROLOGIC: Alert and oriented x 3. Normal affect. Objective Data Vital Signs Vital Signs: Vital Signs - 24 hr 02/06/25 15:22 02/06/25 16:00 02/06/25 20:00 Temperature 36.4 C L Pulse Rate 95 78 Respiratory Rate 20 18 Blood Pressure 129/75 Pulse Oximetry 100 97 Oxygen Delivery Nasal Cannula Oxygen Flow Rate 4 Fraction of Inspired Oxygen 02/06/25 20:04 02/06/25 20:05 02/06/25 20:12 Temperature 36.8 C Pulse Rate 89 90 Respiratory Rate 17 20 Blood Pressure 133/76 Pulse Oximetry 100 97 Oxygen Delivery Nasal Cannula Oxygen Flow Rate 4 Fraction of Inspired Oxygen 02/06/25 20:13 02/07/25 02:02 02/07/25 02:10 Temperature Pulse Rate 93 86 84 Respiratory Rate 20 20 20 Blood Pressure Pulse Oximetry Oxygen Delivery Oxygen Flow Rate Fraction of Inspired Oxygen 02/07/25 04:51 02/07/25 08:00 02/07/25 08:18 Temperature 36.8 C Pulse Rate 92 Respiratory Rate 17 Blood Pressure 104/63 Pulse Oximetry 100 95 95 Oxygen Delivery Nasal Cannula Nasal Cannula Oxygen Flow Rate 4 4 Fraction of Inspired Oxygen 36 02/07/25 08:18 02/07/25 08:29 Temperature Pulse Rate 87 91 Respiratory Rate 20 20 Blood Pressure Pulse Oximetry Oxygen Delivery Oxygen Flow Rate Fraction of Inspired Oxygen Intake/Output Intake/Output: Intake & Output 02/04/25 02/05/25 02/06/25 02/07/25 23:59 23:59 23:59 23:59 Intake Total 4024 2130 1720 100 Output Total 1275 2400 2053 800 Balance 5417 -908 -333 -125 Meds/Results Medications: Active Medications Generic Name Dose Route Start Last Admin Trade Name Freq PRN Reason Stop Dose Admin Acetaminophen 650 mg 02/04/25 01:51 02/06/25 19:58 Acetaminophen 325 Mg Tablet PO 650 mg Q6H PRN Administration Mild Pain (1-3) or Fever Acyclovir 400 mg 02/04/25 09:00 02/07/25 09:10 Acyclovir 400 Mg Tablet PO 400 mg TID ROSA MARIA Administration Albuterol/Ipratropium 3 ml 02/04/25 02:00 02/07/25 08:18 Ipratropium 0.5 Mg/Albuterol Sulfate 2.5 Mg Ampul.Neb 3 Ml INHALATION 3 ml Q6HRT ROSA MARIA Administration Clopidogrel Bisulfate 75 mg 02/04/25 09:00 02/07/25 09:09 Clopidogrel Bisulfate 75 Mg Tablet PO 75 mg DAILY ROSA MARIA Administration Dextrose 12.5 gm 02/04/25 01:51 Dextrose 50% 25 Gm/50 Ml Syringe IV PUSH PRN PRN Hypoglycemia Protocol Ethambutol HCl 800 mg 02/04/25 09:00 02/07/25 09:09 Ethambutol Hcl 400 Mg Tablet PO 800 mg DAILY ROSA MARIA Administration Fluticasone/Umeclidinium/Vilanterol 1 puff 02/04/25 08:00 02/07/25 08:28 Fluticasone/Umeclidin/Vilanter 200-62.5-25 Mcg Ellipta INHALATION 1 puff DAILYRT ROSA MARIA Administration Gabapentin 400 mg 02/06/25 09:00 02/07/25 09:09 Gabapentin 400 Mg Capsule PO 400 mg QID ROSA MARIA Administration Glucagon 1 mg 02/04/25 01:51 Glucagon For Inj 1 Mg Vial IM PRN PRN Hypoglycemia Protocol Glucose 15 gm 02/04/25 01:51 Glucose Oral Gel 15 Gm Of Glucse In 37.5 Gm Tube PO PRN PRN Hypoglycemia Protocol Guaifenesin 600 mg 02/04/25 09:00 02/07/25 09:09 Guaifenesin 12 Hr 600 Mg Tabcr PO 600 mg Q12HR ROSA MARIA Administration Dextrose 1,000 mls @ 100 mls/hr 02/04/25 01:51 Dextrose 5% 1,000 Ml IVPB PRN PRN Hypoglycemia Protocol Cefepime HCl 2 gm in 50 mls @ 100 mls/hr 02/04/25 06:00 02/07/25 05:29 Maxipime 2 Gm/Ns 50 Ml IVPB 100 mls/hr Q8H ROSA MARIA Administration Azithromycin 500 mg in 250 mls @ 250 mls/hr 02/04/25 08:00 02/07/25 09:11 Zithromax IVPB 250 mls/hr Q24H ROSA MARIA Administration Insulin Aspart 2 - 5 units 02/04/25 08:00 02/07/25 09:05 Insulin Aspart (*Bkc) 100 Units/Ml SUB-Q Not Given TIDWM ROSA MARIA Protocol Insulin Aspart 1 - 2 units 02/04/25 21:00 02/06/25 20:03 Insulin Aspart (*Bkc) 100 Units/Ml SUB-Q Not Given HS ROSA MARIA Protocol Melatonin 5 mg 02/04/25 23:28 02/06/25 19:59 Melatonin 5 Mg Tablet PO 5 mg HS PRN Administration Sleep Miscellaneous Information 0 each 02/04/25 06:45 02/06/25 08:39 Clofazimine 50 Mg Capsule- Nonformulary. Please Obtain A Home Supply If Possible. XX 03/06/25 06:44 Not Given CLARIFY ROSA MARIA Montelukast Sodium 10 mg 02/04/25 21:00 02/06/25 19:58 Montelukast Sodium 10 Mg Tablet PO 10 mg HS ROSA MARIA Administration Mycophenolate Mofetil 1,000 mg 02/04/25 09:00 02/07/25 09:09 Mycophenolate Mofetil 250 Mg Capsule PO 1,000 mg Q12HR ROSA MARIA Administration Non-Formulary Medication 100 mg 02/04/25 09:00 Clofazimine PO 03/06/25 08:59 DAILY ROSA MARIA Ondansetron HCl 4 mg 02/06/25 16:09 Ondansetron Inj 4 Mg/2 Ml Vial IV PUSH Q6H PRN Nausea And Vomiting Pantoprazole Sodium 40 mg 02/04/25 09:00 02/07/25 09:09 Pantoprazole 40 Mg Tablet PO 40 mg BID ROSA MARIA Administration Rivaroxaban 20 mg 02/04/25 17:00 02/06/25 16:21 Rivaroxaban 20 Mg Tablet PO 20 mg DAILY@1700 ROSA MARIA Administration Tacrolimus 0.5 mg 02/05/25 09:00 02/07/25 09:09 Tacrolimus 0.5 Mg Capsule PO 0.5 mg Q48H ROSA MARIA Administration Radiology Results: ITS Impressions Chest CTA 02/03/25 23:18 IMPRESSION: No pulmonary embolus. No thoracic aortic dissection. Redemonstration of chronic panlobular emphysematous change with right apical consolidation with cavitary change and pleural-based scarring within the left upper lobe with cavitary change. Chest X-Ray 02/06/25 06:18 Impression: 1: No acute cardiopulmonary disease. Stable chronic changes. Labs Labs: Laboratory Results - last 24 hr 02/04/25 02/04/25 02/06/25 04:18 08:04 11:37 POC Capillary Glucose 177 H Troponin I Ur L.pneumophila Ag Not detected Mycoplasma pneumon IgM 168 Urine Pneumococcal Ag Not detected 02/06/25 02/06/25 02/06/25 15:27 17:01 20:02 POC Capillary Glucose 103 197 H Troponin I < 0.012 Ur L.pneumophila Ag Mycoplasma pneumon IgM Urine Pneumococcal Ag 02/07/25 08:00 POC Capillary Glucose 114 H Troponin I Ur L.pneumophila Ag Mycoplasma pneumon IgM Urine Pneumococcal Ag
--- NOTE | 2025-02-07 11:41 | P.PNIM_ITS ---
Progress Note: A&P Assessment and Plan (1) Acute exacerbation of chronic obstructive pulmonary disease: Code(s): J44.1 - Chronic obstructive pulmonary disease with (acute) exacerbation Status: Acute Plan Acute on chronic respiratory failure Continue titrating oxygen. COPD exacerbation Continue bronchodilators, antibiotics, no steroid due to immunosuppressed status a history of atypical mycobacteria infection. repeat CXR in the am Pulmonology following Monitor Chronic [id number]-fnza disease Continue home medications. History of Mycobacterium avium complex Continue ethambutol CHF, systolic Continue medications. DVT prophylaxis on Xarelto. Code status Full Subjective Date/time seen: 02/07/25 11:41 Interval history: Patient was seen during the morning rounds today. Patient has mild shortness of breath. Patient is feeling slightly better. No chest pain. No abdominal pain, no nausea, no vomiting. Mood stable. Review of Systems Review of Systems: 12 systems were reviewed and are negativ e except for as per HPI. Exam Narrative: General: Thin, chronically ill-appearing male in the semi-Grider position in bed in no acute distress. Weight: 65.9 kg. BMI: 20.8. HEENT: PERRL, EOMI. Sclera anicteric. Oral mucosa is tacky. Neck: Supple. No JVD or lymphadenopathy. Respiratory: Air entry is better. Scattered expiratory wheezing. Cardiovascular: Regular rate and rhythm with S1-S2. Gastrointestinal: Abdomen is soft, flat, nontender, and nondistended with positive bowel sounds. Skin: Warm and dry. No rash or lesions on limited exam. Extremities: No cyanosis, clubbing, or edema. Radial and pedal pulses intact. No palpable knots or cords. Neurological: Alert. Cranial nerves 2-12 are grossly intact. No gross focal deficits to casual conversation. Psychiatric: Pleasant and cooperative with appropriate mood and affect. He is in good spirits. Objective Data Vital Signs Vital Signs: Vital Signs - 24 hr 02/06/25 15:22 02/06/25 16:00 02/06/25 20:00 Temperature 36.4 C L Pulse Rate 95 78 Respiratory Rate 20 18 Blood Pressure 129/75 Pulse Oximetry 100 97 Oxygen Delivery Nasal Cannula Oxygen Flow Rate 4 Fraction of Inspired Oxygen 02/06/25 20:04 02/06/25 20:05 02/06/25 20:12 Temperature 36.8 C Pulse Rate 89 90 Respiratory Rate 17 20 Blood Pressure 133/76 Pulse Oximetry 100 97 Oxygen Delivery Nasal Cannula Oxygen Flow Rate 4 Fraction of Inspired Oxygen 02/06/25 20:13 02/07/25 02:02 02/07/25 02:10 Temperature Pulse Rate 93 86 84 Respiratory Rate 20 20 20 Blood Pressure Pulse Oximetry Oxygen Delivery Oxygen Flow Rate Fraction of Inspired Oxygen 02/07/25 04:51 02/07/25 08:00 02/07/25 08:18 Temperature 36.8 C Pulse Rate 92 Respiratory Rate 17 Blood Pressure 104/63 Pulse Oximetry 100 95 95 Oxygen Delivery Nasal Cannula Nasal Cannula Oxygen Flow Rate 4 4 Fraction of Inspired Oxygen 36 02/07/25 08:18 02/07/25 08:29 Temperature Pulse Rate 87 91 Respiratory Rate 20 20 Blood Pressure Pulse Oximetry Oxygen Delivery Oxygen Flow Rate Fraction of Inspired Oxygen Intake/Output Intake/Output: Intake & Output 02/04/25 02/05/25 02/06/25 02/07/25 23:59 23:59 23:59 23:59 Intake Total 4024 2130 1720 200 Output Total 1275 2400 2052 800 Balance 5227 -729 -333 -600 Meds/Results Medications: Active Medications Generic Name Dose Route Start Last Admin Trade Name Freq PRN Reason Stop Dose Admin Acetaminophen 650 mg 02/04/25 01:51 02/06/25 19:58 Acetaminophen 325 Mg Tablet PO 650 mg Q6H PRN Administration Mild Pain (1-3) or Fever Acyclovir 400 mg 02/04/25 09:00 02/07/25 09:10 Acyclovir 400 Mg Tablet PO 400 mg TID ROSA MARIA Administration Albuterol/Ipratropium 3 ml 02/04/25 02:00 02/07/25 08:18 Ipratropium 0.5 Mg/Albuterol Sulfate 2.5 Mg Ampul.Neb 3 Ml INHALATION 3 ml Q6HRT ROSA MARIA Administration Clopidogrel Bisulfate 75 mg 02/04/25 09:00 02/07/25 09:09 Clopidogrel Bisulfate 75 Mg Tablet PO 75 mg DAILY ROSA MARIA Administration Dextrose 12.5 gm 02/04/25 01:51 Dextrose 50% 25 Gm/50 Ml Syringe IV PUSH PRN PRN Hypoglycemia Protocol Ethambutol HCl 800 mg 02/04/25 09:00 02/07/25 09:09 Ethambutol Hcl 400 Mg Tablet PO 800 mg DAILY ROSA MARIA Administration Fluticasone/Umeclidinium/Vilanterol 1 puff 02/04/25 08:00 02/07/25 08:28 Fluticasone/Umeclidin/Vilanter 200-62.5-25 Mcg Ellipta INHALATION 1 puff DAILYRT ROSA MARIA Administration Gabapentin 400 mg 02/06/25 09:00 02/07/25 09:09 Gabapentin 400 Mg Capsule PO 400 mg QID ROSA MARIA Administration Glucagon 1 mg 02/04/25 01:51 Glucagon For Inj 1 Mg Vial IM PRN PRN Hypoglycemia Protocol Glucose 15 gm 02/04/25 01:51 Glucose Oral Gel 15 Gm Of Glucse In 37.5 Gm Tube PO PRN PRN Hypoglycemia Protocol Guaifenesin 600 mg 02/04/25 09:00 02/07/25 09:09 Guaifenesin 12 Hr 600 Mg Tabcr PO 600 mg Q12HR ROSA MARIA Administration Dextrose 1,000 mls @ 100 mls/hr 02/04/25 01:51 Dextrose 5% 1,000 Ml IVPB PRN PRN Hypoglycemia Protocol Cefepime HCl 2 gm in 50 mls @ 100 mls/hr 02/04/25 06:00 02/07/25 05:29 Maxipime 2 Gm/Ns 50 Ml IVPB 100 mls/hr Q8H ROSA MARIA Administration Azithromycin 500 mg in 250 mls @ 250 mls/hr 02/04/25 08:00 02/07/25 09:11 Zithromax IVPB 250 mls/hr Q24H ROSA MARIA Administration Insulin Aspart 2 - 5 units 02/04/25 08:00 02/07/25 09:05 Insulin Aspart (*Bkc) 100 Units/Ml SUB-Q Not Given TIDWM ROSA MARIA Protocol Insulin Aspart 1 - 2 units 02/04/25 21:00 02/06/25 20:03 Insulin Aspart (*Bkc) 100 Units/Ml SUB-Q Not Given HS ROSA MARIA Protocol Melatonin 5 mg 02/04/25 23:28 02/06/25 19:59 Melatonin 5 Mg Tablet PO 5 mg HS PRN Administration Sleep Miscellaneous Information 0 each 02/04/25 06:45 02/06/25 08:39 Clofazimine 50 Mg Capsule- Nonformulary. Please Obtain A Home Supply If Possible. XX 03/06/25 06:44 Not Given CLARIFY ROSA MARIA Montelukast Sodium 10 mg 02/04/25 21:00 02/06/25 19:58 Montelukast Sodium 10 Mg Tablet PO 10 mg HS ROSA MARIA Administration Mycophenolate Mofetil 1,000 mg 02/04/25 09:00 02/07/25 09:09 Mycophenolate Mofetil 250 Mg Capsule PO 1,000 mg Q12HR ROSA MARIA Administration Non-Formulary Medication 100 mg 02/04/25 09:00 Clofazimine PO 03/06/25 08:59 DAILY ROSA MARIA Ondansetron HCl 4 mg 02/06/25 16:09 Ondansetron Inj 4 Mg/2 Ml Vial IV PUSH Q6H PRN Nausea And Vomiting Pantoprazole Sodium 40 mg 02/04/25 09:00 02/07/25 09:09 Pantoprazole 40 Mg Tablet PO 40 mg BID ROSA MARIA Administration Rivaroxaban 20 mg 02/04/25 17:00 02/06/25 16:21 Rivaroxaban 20 Mg Tablet PO 20 mg DAILY@1700 ROSA MARIA Administration Tacrolimus 0.5 mg 02/05/25 09:00 02/07/25 09:09 Tacrolimus 0.5 Mg Capsule PO 0.5 mg Q48H ROSA MARIA Administration Radiology Results: ITS Impressions Chest CTA 02/03/25 23:18 IMPRESSION: No pulmonary embolus. No thoracic aortic dissection. Redemonstration of chronic panlobular emphysematous change with right apical consolidation with cavitary change and pleural-based scarring within the left upper lobe with cavitary change. Chest X-Ray 02/06/25 06:18 Impression: 1: No acute cardiopulmonary disease. Stable chronic changes. Labs Labs: Laboratory Results - last 24 hr 02/04/25 02/04/25 02/06/25 04:18 08:04 11:37 POC Capillary Glucose 177 H Troponin I Ur L.pneumophila Ag Not detected Mycoplasma pneumon IgM 168 Urine Pneumococcal Ag Not detected 02/06/25 02/06/25 02/06/25 15:27 17:01 20:02 POC Capillary Glucose 103 197 H Troponin I < 0.012 Ur L.pneumophila Ag Mycoplasma pneumon IgM Urine Pneumococcal Ag 02/07/25 08:00 POC Capillary Glucose 114 H Troponin I Ur L.pneumophila Ag Mycoplasma pneumon IgM Urine Pneumococcal Ag Quality VTE Prophylaxis VTE prophylaxis: pharmacologic ordered (On rivaroxaban)
[2025-02-07 11:58] LABS: Glucose Point of Care 147 mg/dl (65-105)
[2025-02-07 16:59] LABS: Glucose Point of Care 143 mg/dl (65-105)
[2025-02-07] MEDS: RIVAROXABAN 20 MG TABLET PO (17:55)
--- NOTE | 2025-02-07 19:51 | PCRCNOTE ---
Patient wears 4L O2 at home; patient has an oxygen sat of 100% and has copd,RT decreased O2 to 3L
--- NOTE | 2025-02-07 20:34 | ECG_ITS ---
Test Date: 2025-02-07 20:56:25 Measurements Intervals [place] Rate: 111 P: 85 VT: 132 QRS: 96 QRSD: 96 T: 205 QT: 323 QTc: 439 Interpretive Statements SINUS TACHYCARDIA POSSIBLE RIGHT ATRIAL ENLARGEMENT [0.25mV P-WAVE] BORDERLINE RIGHT AXIS DEVIATION [QRS AXIS > 90] ST DEVIATION AND MODERATE T-WAVE ABNORMALITY, CONSIDER LATERAL ISCHEMIA ST DEVIATION AND MODERATE T-WAVE ABNORMALITY, CONSIDER INFERIOR ISCHEMIA [-0.1+ mV T-WAVE IN II/aVF] Compared to ECG 02/06/2025 11:00:52 NO SIGNIFICANT CHANGES Electronically Signed On 02-09-2025 15:21:13 CDT by Chin La M.D.
[2025-02-07 20:39] LABS: Glucose Point of Care 147 mg/dl (65-105)
[2025-02-08] VITALS (15 sets, daily range): BP systolic 104–112; BP diastolic 64–68; PULSE 70–111; RESP 18–24; TEMP 36.5–37; O2SAT 94–98
[2025-02-08] MEDS: SODIUM CHLORIDE 0.9% IV 1,000 ML 75 ML IV CONT ×2 (00:12→17:39)
[2025-02-08] MEDS: IPRATROPIUM 0.5 MG/ALBUTEROL SULFATE 2.5 MG AMPUL.NEB 3 ML INHALATION (01:56)
--- NOTE | 2025-02-08 02:00 | PCRCNOTE ---
Patient could possibly benefit from a new home O2 study. Pt has copd, satting 98% on 3L. Pt states he wears 4L at home.
[2025-02-08] MEDS: CEFEPIME 2 GM/NS 50 ML 2 GM/50 ML BAG IVPB ×3 (05:25→21:00)
[2025-02-08 05:36] LABS: Basophils Percent Auto 0.2 % (0.2-1.2); Eosinophils Absolute Auto 0.1 K/mm3 (0-0.3); Eosinophils Percent Auto 0.8 % (0-4.4); Hematocrit 33.7 % (42.0-52.0); Hemoglobin 11.3 g/dL (14.0-18.0); Immature Granulocyte Percent A 0.7 % (0-0.5); Lymphocytes Absolute Auto 3.42 K/mm3 (0.9-3.2); Mean Corpuscular HGB Conc 33.5 g/dl (32-36); Mean Corpuscular Hemoglobin 33.7 pg (26-34); Mean Corpuscular Volume 100.6 fl (80-100); Mean Platelet Volume 9.5 fl (7.4-10.4); Monocytes Absolute Auto 1.3 K/mm3 (0.1-0.6); Monocytes Percent Auto 8.7 % (2.6-8.5); Neutrophils Absolute Auto 9.9 K/mm3 (1.3-6.7); Neutrophils Percent Auto 66.6 % (45.5-73.1); Nucleated Red Blood Cells Perc 0.3 % (0.0-0.2); Platelet Count Result 314 k/mm3 (150-375); Red Blood Count 3.35 M/mm3 (4.6-6.20); Red Cell Distribution Width 18.4 % (11.5-14.5); White Blood Count 14.9 K/mm3 (4.5-10.0)
[2025-02-08] MEDS: FLUTICASONE/UMECLIDIN/VILANTER 200-62.5-25 MCG ELLIPTA 1 PUFF INHALATION (07:34)
[2025-02-08] MEDS: LEVALBUTEROL NEB 1.25 MG/3 ML INHALATION ×4 (07:34→21:16)
[2025-02-08 08:17] LABS: Glucose Point of Care 125 mg/dl (65-105)
[2025-02-08] MEDS: AZITHROMYCIN 500 MG/NS 250 ML 500 MG/250 ML BAG 250 MG IVPB (08:48)
[2025-02-08 11:32] LABS: Glucose Point of Care 122 mg/dl (65-105)
--- NOTE | 2025-02-08 14:49 | P.PNPL_ITS ---
Progress Note: A&P Assessment and Plan (1) Acute exacerbation of chronic obstructive airways disease: Code(s): J44.1 - Chronic obstructive pulmonary disease with (acute) exacerbation Status: Acute Assessment and Plan: This 59-year-old man, with a history of advanced COPD and treatment for atypical mycobacterial infection, presented with a few days of increasing shortness of breath, wheezing, and hypoxemia. Chest imaging studies showed no new infiltrates that would suggest a lower respiratory tract infection or congestive heart failure. His hypoxemia and wheezing responded to treatment with a single dose of Decadron administered by EMS en route to the emergency room, along with short- acting bronchodilators and a new antibiotic regimen. Currently, his respiratory status has improved, and the patient reports feeling much better, though not yet back to baseline. He has not been able to produce any sputum for culture. His chronic cough and sputum production have subsided following treatment for his atypical mycobacterial infection. He exhibited no hypercapnia on arterial blood gases, and his FiO2 requirement has decreased following treatment for his wheezing. Over the last 24 hours while the patient on antibiotics his respiratory status is stable. Distant breath sounds with no wheezing on today's exam. White cell count still elevated but trending down. Plan: We will continue with the current regimen, utilizing nebulized short- acting bronchodilators and prescribed antibiotics. Steroids will be avoided due to his immunosuppressive status and history of atypical mycobacterial infection. Repeat CBC in a.m. will continue to follow the patient along with you. Anticipate discharge home in a.m. (2) Hypoxemic respiratory failure, chronic: Code(s): J96.11 - Chronic respiratory failure with hypoxia Status: Acute (3) Chronic anticoagulation: Code(s): Z79.01 - intermediate frame tender (current) use of 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 Status: Acute (4) Diabetes 1.5, managed as type 2: Code(s): E13.9 - Other specified diabetes mellitus without complications Status: Acute (5) Acute myeloblastic leukemia, in remission: Code(s): C92.01 - Acute myeloblastic leukemia, in remission Status: Acute (6) Immunocompromised patient: Code(s): D84.9 - Immunodeficiency, unspecified Status: Acute (7) Mycobacterium avium complex: Code(s): A31.0 - Pulmonary mycobacterial infection Status: Acute Subjective Date/time seen: 02/08/25 14:49 Interval history: Patient has no new respiratory symptoms. He is still on antibiotics with WBC elevated but trending down. He has no fever chills hemoptysis or wheezing. Review of Systems Review of Systems: All systems reviewed & are unremarkable except as noted in HPI and below (HPI and below) Exam Narrative: GENERAL APPEARANCE: Well developed, well nourished, alert and cooperative, and appears to be in no acute distress while on supplemental oxygen via nasal cannula SKIN: Inspection of the skin reveals no rashes, ulcerations or petechiae. HEENT: Sclerae anicteric and conjunctivae pink and moist. Extraocular movements were intact and pupils were equal, round. Ears cerumen impaction bilaterally. NECK: Supple. There was no thyroid enlargement, and no tenderness, or masses were felt. CHEST: Normal AP diameter and normal contour without any kyphoscoliosis. LUNGS: Hyperinflated lungs, distant breath sounds no wheezing CARDIAC: There was a regular rate and rhythm without any murmurs, gallops, rubs. ABDOMEN: Soft and nontender with normal bowel sounds. There was no organomegaly. LYMPH NODES: No lymphadenopathy was appreciated in the neck. EXTREMITIES: No cyanosis, clubbing or edema. NEUROLOGIC: Alert and oriented x 3. Normal affect. Objective Data Vital Signs Vital Signs: Vital Signs - 24 hr 02/07/25 19:48 02/07/25 19:50 02/07/25 19:57 Temperature Pulse Rate 83 83 85 Respiratory Rate 20 20 Blood Pressure Pulse Oximetry 100 Oxygen Delivery Nasal Cannula Oxygen Flow Rate 4 02/07/25 20:00 02/07/25 20:25 02/07/25 21:30 Temperature 36.6 C Pulse Rate 115 H Respiratory Rate 20 Blood Pressure 102/73 Pulse Oximetry 93 99 98 Oxygen Delivery Nasal Cannula Nasal Cannula Oxygen Flow Rate 3 3 02/08/25 00:25 02/08/25 01:56 02/08/25 02:04 Temperature Pulse Rate 100 111 H 108 H Respiratory Rate 20 20 Blood Pressure Pulse Oximetry Oxygen Delivery Oxygen Flow Rate 02/08/25 04:44 02/08/25 07:34 02/08/25 07:34 Temperature 37.0 C Pulse Rate 98 106 H Respiratory Rate 20 24 H Blood Pressure 112/67 Pulse Oximetry 94 98 Oxygen Delivery Nasal Cannula Oxygen Flow Rate 3 02/08/25 07:57 02/08/25 08:00 02/08/25 14:10 Temperature Pulse Rate 107 H 89 Respiratory Rate 24 H 20 Blood Pressure Pulse Oximetry 98 Oxygen Delivery Nasal Cannula Oxygen Flow Rate 3 02/08/25 14:27 Temperature Pulse Rate 89 Respiratory Rate 20 Blood Pressure Pulse Oximetry Oxygen Delivery Oxygen Flow Rate Intake/Output Intake/Output: Intake & Output 02/05/25 02/06/25 02/07/25 02/08/25 23:59 23:59 23:59 23:59 Intake Total 2130 1720 1330 331.2 Output Total 2400 2053 2100 650 Balance -270 -333 -770 -318.8 Meds/Results Medications: Active Medications Generic Name Dose Route Start Last Admin Trade Name Freq PRN Reason Stop Dose Admin Acetaminophen 650 mg 02/04/25 01:51 02/06/25 19:58 Acetaminophen 325 Mg Tablet PO 650 mg Q6H PRN Administration Mild Pain (1-3) or Fever Acyclovir 400 mg 02/04/25 09:00 02/08/25 10:46 Acyclovir 400 Mg Tablet PO Not Given TID [facility] Azithromycin 500 mg 02/09/25 09:00 Azithromycin 250 Mg Tablet PO DAILY ROSA MARIA Clopidogrel Bisulfate 75 mg 02/04/25 09:00 02/08/25 10:46 Clopidogrel Bisulfate 75 Mg Tablet PO Not Given DAILY ROSA MARIA Dextrose 12.5 gm 02/04/25 01:51 Dextrose 50% 25 Gm/50 Ml Syringe IV PUSH PRN PRN Hypoglycemia Protocol Ethambutol HCl 800 mg 02/04/25 09:00 02/08/25 10:46 Ethambutol Hcl 400 Mg Tablet PO Not Given DAILY RSOA MARIA Fluticasone/Umeclidinium/Vilanterol 1 puff 02/04/25 08:00 02/08/25 07:34 Fluticasone/Umeclidin/Vilanter 200-62.5-25 Mcg Ellipta INHALATION 1 puff DAILYRT ROSA MARIA Administration Gabapentin 400 mg 02/06/25 09:00 02/08/25 10:46 Gabapentin 400 Mg Capsule PO Not Given QID ROSA MARIA Glucagon 1 mg 02/04/25 01:51 Glucagon For Inj 1 Mg Vial IM PRN PRN Hypoglycemia Protocol Glucose 15 gm 02/04/25 01:51 Glucose Oral Gel 15 Gm Of Glucse In 37.5 Gm Tube PO PRN PRN Hypoglycemia Protocol Guaifenesin 600 mg 02/04/25 09:00 02/08/25 10:46 Guaifenesin 12 Hr 600 Mg Tabcr PO Not Given Q12HR ROSA MARIA Dextrose 1,000 mls @ 100 mls/hr 02/04/25 01:51 Dextrose 5% 1,000 Ml IVPB PRN PRN Hypoglycemia Protocol Cefepime HCl 2 gm in 50 mls @ 100 mls/hr 02/04/25 06:00 02/08/25 05:55 Maxipime 2 Gm/Ns 50 Ml IVPB 02/08/25 23:59 Infused Q8H ROSA MARIA Infusion Sodium Chloride 1,000 mls @ 75 mls/hr 02/07/25 23:50 02/08/25 05:25 Normal Saline Iv IV CONT 75 mls/hr .[id number] ROSA MARIA Infusion Insulin Aspart 2 - 5 units 02/04/25 08:00 02/08/25 12:33 Insulin Aspart (*Bkc) 100 Units/Ml SUB-Q Not Given TIDWM ROSA MARIA Protocol Insulin Aspart 1 - 2 units 02/04/25 21:00 02/07/25 20:36 Insulin Aspart (*Bkc) 100 Units/Ml SUB-Q Not Given HS ROSA MARIA Protocol Levalbuterol HCl 1.25 mg 02/08/25 08:00 02/08/25 14:10 Levalbuterol Neb 1.25 Mg/3 Ml INHALATION 1.25 mg Q6HRT ROSA MARIA Administration Melatonin 5 mg 02/04/25 23:28 02/06/25 19:59 Melatonin 5 Mg Tablet PO 5 mg HS PRN Administration Sleep Miscellaneous Information 0 each 02/04/25 06:45 02/06/25 08:39 Clofazimine 50 Mg Capsule- Nonformulary. Please Obtain A Home Supply If Possible. XX 03/06/25 06:44 Not Given CLARIFY ROSA MARIA Montelukast Sodium 10 mg 02/04/25 21:00 02/07/25 20:36 Montelukast Sodium 10 Mg Tablet PO Not Given HS ROSA MARIA Mycophenolate Mofetil 1,000 mg 02/04/25 09:00 02/08/25 10:46 Mycophenolate Mofetil 250 Mg Capsule PO Not Given Q12HR ROSA MARIA Non-Formulary Medication 100 mg 02/04/25 09:00 Clofazimine PO 03/06/25 08:59 DAILY ROSA MARIA Ondansetron HCl 4 mg 02/06/25 16:09 Ondansetron Inj 4 Mg/2 Ml Vial IV PUSH Q6H PRN Nausea And Vomiting Pantoprazole Sodium 40 mg 02/04/25 09:00 02/08/25 10:46 Pantoprazole 40 Mg Tablet PO Not Given BID ROSA MARIA Rivaroxaban 20 mg 02/04/25 17:00 02/07/25 17:55 Rivaroxaban 20 Mg Tablet PO 20 mg DAILY@1700 ROSA MARIA Administration Tacrolimus 0.5 mg 02/05/25 09:00 02/07/25 09:09 Tacrolimus 0.5 Mg Capsule PO 0.5 mg Q48H ROSA MARIA Administration Radiology Results: ITS Impressions Chest CTA 02/03/25 23:18 IMPRESSION: No pulmonary embolus. No thoracic aortic dissection. Redemonstration of chronic panlobular emphysematous change with right apical consolidation with cavitary change and pleural-based scarring within the left upper lobe with cavitary change. Chest X-Ray 02/08/25 05:20 IMPRESSION: 1. Chronic airspace opacities in the upper lobes and chronic nodule in lateral right midlung zone, consistent with chronic pneumonia. 2. Emphysema. Labs Labs: Laboratory Results - last 24 hr 02/07/25 02/07/25 02/08/25 16:56 20:29 05:19 WBC 14.9 H RBC 3.35 L Hgb 11.3 L Hct 33.7 L MCV 100.6 H MCH 33.7 MCHC 33.5 RDW 18.4 H Plt Count 314 MPV 9.5 Immature Gran % (Auto) 0.7 H Neut % (Auto) 66.6 Lymph % (Auto) 23.0 [place] % (Auto) 8.7 H Eos % (Auto) 0.8 Baso % (Auto) 0.2 Lymph # (Auto) 3.42 H [place] # (Auto) 1.3 H Eos # (Auto) 0.1 Baso # (Auto) 0.0 Abs Immat Gran (auto) 0.10 H Absolute Neuts (auto) 9.9 H Absolute Nucleated RBC 0.040 H Nucleated RBC % 0.3 H POC Capillary Glucose 143 H 147 H 02/08/25 02/08/25 08:13 11:25 WBC RBC Hgb Hct MCV MCH MCHC RDW Plt Count MPV Immature Gran % (Auto) Neut % (Auto) Lymph % (Auto) [place] % (Auto) Eos % (Auto) Baso % (Auto) Lymph # (Auto) [place] # (Auto) Eos # (Auto) Baso # (Auto) Abs Immat Gran (auto) Absolute Neuts (auto) Absolute Nucleated RBC Nucleated RBC % POC Capillary Glucose 125 H 122 H
[2025-02-08 17:05] LABS: Glucose Point of Care 154 mg/dl (65-105)
--- NOTE | 2025-02-08 17:52 | P.PNIM_ITS ---
Progress Note: A&P Assessment and Plan (1) Acute exacerbation of chronic obstructive pulmonary disease: Code(s): J44.1 - Chronic obstructive pulmonary disease with (acute) exacerbation Status: Acute Plan Acute on chronic respiratory failure Continue titrating oxygen. COPD exacerbation Continue bronchodilators, antibiotics, no steroid due to immunosuppressed status a history of atypical mycobacteria infection. repeat CXR in the am Pulmonology following Monitor Chronic azisl-jzeggw-hprp disease Continue home medications. History of Mycobacterium avium complex Continue ethambutol CHF, systolic Continue medications. DVT prophylaxis on Xarelto. Code status Full Subjective Date/time seen: 02/08/25 17:52 Interval history: Patient complaints of chest pressure, given Xopenex x 1. Patient was already by Cardiology and advised to follow-up as an outpatient. Patient has some swelling issues if continues will consult GI Review of Systems Review of Systems: 12 systems were reviewed and are negativ e except for as per HPI. Exam Narrative: General: Thin, chronically ill-appearing male in the semi-Grider position in bed in no acute distress. Weight: 65.9 kg. BMI: 20.8. HEENT: PERRL, EOMI. Sclera anicteric. Oral mucosa is tacky. Neck: Supple. No JVD or lymphadenopathy. Respiratory: Air entry is better. Scattered expiratory wheezing. Cardiovascular: Regular rate and rhythm with S1-S2. Gastrointestinal: Abdomen is soft, flat, nontender, and nondistended with positive bowel sounds. Skin: Warm and dry. No rash or lesions on limited exam. Extremities: No cyanosis, clubbing, or edema. Radial and pedal pulses intact. No palpable knots or cords. Neurological: Alert. Cranial nerves 2-12 are grossly intact. No gross focal deficits to casual conversation. Psychiatric: Pleasant and cooperative with appropriate mood and affect. He is in good spirits. Objective Data Vital Signs Vital Signs: Vital Signs - 24 hr 02/07/25 19:48 02/07/25 19:50 02/07/25 19:57 Temperature Pulse Rate 83 83 85 Respiratory Rate 20 20 Blood Pressure Pulse Oximetry 100 Oxygen Delivery Nasal Cannula Oxygen Flow Rate 4 02/07/25 20:00 02/07/25 20:25 02/07/25 21:30 Temperature 97.9 F Pulse Rate 115 H Respiratory Rate 20 Blood Pressure 102/73 Pulse Oximetry 93 99 98 Oxygen Delivery Nasal Cannula Nasal Cannula Oxygen Flow Rate 3 3 02/08/25 00:25 02/08/25 01:56 02/08/25 02:04 Temperature Pulse Rate 100 111 H 108 H Respiratory Rate 20 20 Blood Pressure Pulse Oximetry Oxygen Delivery Oxygen Flow Rate 02/08/25 04:44 02/08/25 07:34 02/08/25 07:34 Temperature 98.6 F Pulse Rate 98 106 H Respiratory Rate 20 24 H Blood Pressure 112/67 Pulse Oximetry 94 98 Oxygen Delivery Nasal Cannula Oxygen Flow Rate 3 02/08/25 07:57 02/08/25 08:00 02/08/25 14:10 Temperature Pulse Rate 107 H 89 Respiratory Rate 24 H 20 Blood Pressure Pulse Oximetry 98 Oxygen Delivery Nasal Cannula Oxygen Flow Rate 3 02/08/25 14:27 02/08/25 16:00 02/08/25 16:40 Temperature 97.7 F Pulse Rate 89 70 94 Respiratory Rate 20 20 24 H Blood Pressure 109/68 Pulse Oximetry 95 Oxygen Delivery Oxygen Flow Rate Intake/Output Intake/Output: Intake & Output 02/05/25 02/06/25 02/07/25 02/08/25 23:59 23:59 23:59 23:59 Intake Total 2130 1720 1330 1100.0 Output Total 2400 2053 2100 650 Balance -270 -333 -770 450.0 Meds/Results Medications: Active Medications Generic Name Dose Route Start Last Admin Trade Name Freq PRN Reason Stop Dose Admin Acetaminophen 650 mg 02/04/25 01:51 02/06/25 19:58 Acetaminophen 325 Mg Tablet PO 650 mg Q6H PRN Administration Mild Pain (1-3) or Fever Acyclovir 400 mg 02/04/25 09:00 02/08/25 17:40 Acyclovir 400 Mg Tablet PO Not Given TID ROSA MARIA Azithromycin 500 mg 02/09/25 09:00 Azithromycin 250 Mg Tablet PO DAILY ROSA MARIA Clopidogrel Bisulfate 75 mg 02/04/25 09:00 02/08/25 10:46 Clopidogrel Bisulfate 75 Mg Tablet PO Not Given DAILY ROSA MARIA Dextrose 12.5 gm 02/04/25 01:51 Dextrose 50% 25 Gm/50 Ml Syringe IV PUSH PRN PRN Hypoglycemia Protocol Ethambutol HCl 800 mg 02/04/25 09:00 02/08/25 10:46 Ethambutol Hcl 400 Mg Tablet PO Not Given DAILY ROSA MARIA Fluticasone/Umeclidinium/Vilanterol 1 puff 02/04/25 08:00 02/08/25 07:34 Fluticasone/Umeclidin/Vilanter 200-62.5-25 Mcg Ellipta INHALATION 1 puff DAILYRT ROSA MARIA Administration Gabapentin 400 mg 02/06/25 09:00 02/08/25 17:40 Gabapentin 400 Mg Capsule PO Not Given QID ROSA MARIA Glucagon 1 mg 02/04/25 01:51 Glucagon For Inj 1 Mg Vial IM PRN PRN Hypoglycemia Protocol Glucose 15 gm 02/04/25 01:51 Glucose Oral Gel 15 Gm Of Glucse In 37.5 Gm Tube PO PRN PRN Hypoglycemia Protocol Guaifenesin 600 mg 02/04/25 09:00 02/08/25 10:46 Guaifenesin 12 Hr 600 Mg Tabcr PO Not Given Q12HR ROSA MARIA Dextrose 1,000 mls @ 100 mls/hr 02/04/25 01:51 Dextrose 5% 1,000 Ml IVPB PRN PRN Hypoglycemia Protocol Cefepime HCl 2 gm in 50 mls @ 100 mls/hr 02/04/25 06:00 02/08/25 14:59 Maxipime 2 Gm/Ns 50 Ml IVPB 02/08/25 23:59 100 mls/hr Q8H ROSA MARIA Administration Sodium Chloride 1,000 mls @ 75 mls/hr 02/07/25 23:50 02/08/25 17:39 Normal Saline Iv IV CONT 75 mls/hr .[id number] ROSA MARIA Administration Insulin Aspart 2 - 5 units 02/04/25 08:00 02/08/25 16:11 Insulin Aspart (*Bkc) 100 Units/Ml SUB-Q Not Given TIDWM ROSA MARIA Protocol Insulin Aspart 1 - 2 units 02/04/25 21:00 02/07/25 20:36 Insulin Aspart (*Bkc) 100 Units/Ml SUB-Q Not Given HS ROSA MARIA Protocol Levalbuterol HCl 1.25 mg 02/08/25 08:00 02/08/25 14:10 Levalbuterol Neb 1.25 Mg/3 Ml INHALATION 1.25 mg Q6HRT ROSA MARIA Administration Melatonin 5 mg 02/04/25 23:28 02/06/25 19:59 Melatonin 5 Mg Tablet PO 5 mg HS PRN Administration Sleep Miscellaneous Information 0 each 02/04/25 06:45 02/06/25 08:39 Clofazimine 50 Mg Capsule- Nonformulary. Please Obtain A Home Supply If Possible. XX 03/06/25 06:44 Not Given CLARIFY ROSA MARIA Montelukast Sodium 10 mg 02/04/25 21:00 02/07/25 20:36 Montelukast Sodium 10 Mg Tablet PO Not Given HS ROSA MARIA Mycophenolate Mofetil 1,000 mg 02/04/25 09:00 02/08/25 10:46 Mycophenolate Mofetil 250 Mg Capsule PO Not Given Q12HR ROSA MARIA Non-Formulary Medication 100 mg 02/04/25 09:00 Clofazimine PO 03/06/25 08:59 DAILY [facility] Ondansetron HCl 4 mg 02/06/25 16:09 Ondansetron Inj 4 Mg/2 Ml Vial IV PUSH Q6H PRN Nausea And Vomiting Pantoprazole Sodium 40 mg 02/04/25 09:00 02/08/25 17:40 Pantoprazole 40 Mg Tablet PO Not Given BID ROSA MARIA Rivaroxaban 20 mg 02/04/25 17:00 02/08/25 17:40 Rivaroxaban 20 Mg Tablet PO Not Given DAILY@1700 [facility] Tacrolimus 0.5 mg 02/05/25 09:00 02/07/25 09:09 Tacrolimus 0.5 Mg Capsule PO 0.5 mg Q48H ROSA MARIA Administration Radiology Results: ITS Impressions Chest CTA 02/03/25 23:18 IMPRESSION: No pulmonary embolus. No thoracic aortic dissection. Redemonstration of chronic panlobular emphysematous change with right apical consolidation with cavitary change and pleural-based scarring within the left upper lobe with cavitary change. Chest X-Ray 02/08/25 05:20 IMPRESSION: 1. Chronic airspace opacities in the upper lobes and chronic nodule in lateral right midlung zone, consistent with chronic pneumonia. 2. Emphysema. Labs Labs: Laboratory Results - last 24 hr 02/07/25 02/08/25 02/08/25 20:29 05:19 08:13 WBC 14.9 H RBC 3.35 L Hgb 11.3 L Hct 33.7 L MCV 100.6 H MCH 33.7 MCHC 33.5 RDW 18.4 H Plt Count 314 MPV 9.5 Immature Gran % (Auto) 0.7 H Neut % (Auto) 66.6 Lymph % (Auto) 23.0 [place] % (Auto) 8.7 H Eos % (Auto) 0.8 Baso % (Auto) 0.2 Lymph # (Auto) 3.42 H [place] # (Auto) 1.3 H Eos # (Auto) 0.1 Baso # (Auto) 0.0 Abs Immat Gran (auto) 0.10 H Absolute Neuts (auto) 9.9 H Absolute Nucleated RBC 0.040 H Nucleated RBC % 0.3 H POC Capillary Glucose 147 H 125 H 02/08/25 02/08/25 11:25 17:00 WBC RBC Hgb Hct MCV MCH MCHC RDW Plt Count MPV Immature Gran % (Auto) Neut % (Auto) Lymph % (Auto) [place] % (Auto) Eos % (Auto) Baso % (Auto) Lymph # (Auto) [place] # (Auto) Eos # (Auto) Baso # (Auto) Abs Immat Gran (auto) Absolute Neuts (auto) Absolute Nucleated RBC Nucleated RBC % POC Capillary Glucose 122 H 154 H Quality VTE Prophylaxis VTE prophylaxis: pharmacologic ordered (On rivaroxaban) Hospitalist MIPS Advance Care Plan I have confirmed that the patient's Advanced Care Plan is present, code status is documented, or surrogate decision maker is listed in patient medical record.: Yes Medication Reconciliation I have utilized all available resources to obtain, update and review the patients current medications (includes all prescriptions, OTC, herbals, cannabis, and nutritional supplements).: Yes
--- NOTE | 2025-02-08 18:23 | PC.NURSE ---
Made Dr. JEREZ aware of patient not swallowing medications, refusing to try or eat any meals today. Patient not wanting GI intervention at this time, states that it will just make it worse . Pt states he does have history of esophageal stricture and dilation, but does not want any dilation or stretching done. Pt stated to Dr. JEREZ he wants to live and be a full code Patient has not taken any medications during this shift besides IV medications, Dr. rubio.
[2025-02-08] MEDS: MONTELUKAST SODIUM 10 MG TABLET PO (20:58)
[2025-02-08] MEDS: mycophenolate mofetiL 250 MG CAPSULE 1000 MG PO (20:58)
[2025-02-08] MEDS: GABAPENTIN 400 MG CAPSULE PO (20:58)
[2025-02-08] MEDS: guaiFENesin 12 HR 600 MG TABCR PO (20:58)
[2025-02-08 21:06] LABS: Glucose Point of Care 138 mg/dl (65-105)
[2025-02-08] MEDS: ACETAMINOPHEN 325 MG TABLET 650 MG PO (23:13)
[2025-02-08] MEDS: MELATONIN 5 MG TABLET PO (23:13)
[2025-02-09] VITALS (15 sets, daily range): BP systolic 97–130; BP diastolic 44–70; PULSE 67–93; RESP 18–20; TEMP 36.5–36.7; O2SAT 97–100
[2025-02-09] MEDS: LEVALBUTEROL NEB 1.25 MG/3 ML INHALATION ×4 (02:21→19:38)
[2025-02-09] MEDS: SODIUM CHLORIDE 0.9% IV 1,000 ML 75 ML IV CONT ×2 (05:18→18:18)
[2025-02-09 05:29] LABS: Hematocrit 28.5 % (42.0-52.0); Hemoglobin 9.4 g/dL (14.0-18.0); Mean Corpuscular Hemoglobin 33.7 pg (26-34); Mean Corpuscular Volume 102.2 fl (80-100); Mean Platelet Volume 9.8 fl (7.4-10.4); Platelet Count Result 292 k/mm3 (150-375); Red Blood Count 2.79 M/mm3 (4.6-6.20); Red Cell Distribution Width 18.1 % (11.5-14.5); White Blood Count 11.6 K/mm3 (4.5-10.0)
[2025-02-09 05:46] LABS: Alanine Aminotransferase 22 U/L (6-50); Alkaline Phosphatase 111 U/L (38-126); Anion Gap 2 mmol/L (4-12); Aspartate Amino Transferase 35 U/L (17-59); Bilirubin,Total 0.8 mg/dL (0.2-1.3); Blood Urea Nitrogen 18 mg/dL (9-20); Calcium 8.5 mg/dL (8.4-10.2); Carbon Dioxide 31 mmol/L (22-30); Chloride 104 mmol/L (98-107); Estimated CRCL calculation 93 ml/min; Estimated Glomerular Filt Rate > 60; Glucose 102 mg/dL (65-110); Sodium 137 mmol/L (137-145)
[2025-02-09 08:03] LABS: Glucose Point of Care 81 mg/dl (65-105)
[2025-02-09] MEDS: CLOPIDOGREL BISULFATE 75 MG TABLET PO (08:53)
[2025-02-09] MEDS: AZITHROMYCIN 250 MG TABLET 500 MG PO (08:54)
[2025-02-09] MEDS: ETHAMBUTOL HCL 400 MG TABLET 800 MG PO (08:54)
[2025-02-09] MEDS: TACROLIMUS 0.5 MG CAPSULE PO (08:54)
[2025-02-09] MEDS: PANTOPRAZOLE 40 MG TABLET PO ×2 (08:54→16:54)
[2025-02-09] MEDS: TAMSULOSIN HCL 0.4 MG CAPSULE PO (08:54)
[2025-02-09] MEDS: guaiFENesin 12 HR 600 MG TABCR PO ×2 (08:54→21:11)
[2025-02-09] MEDS: GABAPENTIN 400 MG CAPSULE PO ×4 (08:54→21:11)
[2025-02-09] MEDS: ACYCLOVIR 400 MG TABLET PO ×3 (08:54→16:53)
--- NOTE | 2025-02-09 09:24 | P.PNIM_ITS ---
Progress Note: A&P Assessment and Plan (1) Acute exacerbation of chronic obstructive pulmonary disease: Code(s): J44.1 - Chronic obstructive pulmonary disease with (acute) exacerbation Status: Acute Plan Pill Esophagitis 10/26 EGD shows PE esophagitis and no evidence of strictures Exacerbation of esophagitis Pantoprazole 40 b.i.d. Consulted GI Acute on chronic respiratory failure Continue titrating oxygen. COPD exacerbation Continue bronchodilators, antibiotics, no steroid due to immunosuppressed status a history of atypical mycobacteria infection. repeat CXR in the am Pulmonology following Monitor Chronic oqizk-dymmja-odov disease Continue home medications. History of Mycobacterium avium complex Continue ethambutol CHF, systolic Continue medications. DVT prophylaxis on Xarelto. Code status Full Subjective Date/time seen: 02/09/25 09:24 Interval history: Patient reports irritation while eating. Unable to swallow associated with naus ea. Patient underwent EGD 10/26/2024 which shows Pill esophagitis but no evidence of stricture. Review of Systems Review of Systems: 12 systems were reviewed and are negativ e except for as per HPI. Exam Narrative: General: Thin, chronically ill-appearing male in the semi-Grider position in bed in no acute distress. Weight: 65.9 kg. BMI: 20.8. HEENT: PERRL, EOMI. Sclera anicteric. Oral mucosa is tacky. Neck: Supple. No JVD or lymphadenopathy. Respiratory: Air entry is better. Scattered expiratory wheezing. Cardiovascular: Regular rate and rhythm with S1-S2. Gastrointestinal: Abdomen is soft, flat, nontender, and nondistended with positive bowel sounds. Skin: Warm and dry. No rash or lesions on limited exam. Extremities: No cyanosis, clubbing, or edema. Radial and pedal pulses intact. No palpable knots or cords. Neurological: Alert. Cranial nerves 2-12 are grossly intact. No gross focal deficits to casual conversation. Psychiatric: Pleasant and cooperative with appropriate mood and affect. He is in good spirits. Objective Data Vital Signs Vital Signs: Vital Signs - 24 hr 02/08/25 14:10 02/08/25 14:27 02/08/25 16:00 Temperature 97.7 F Pulse Rate 89 89 70 Respiratory Rate 20 20 20 Blood Pressure 109/68 Pulse Oximetry 95 Oxygen Delivery Oxygen Flow Rate 02/08/25 16:40 02/08/25 19:45 02/08/25 20:00 Temperature 97.7 F Pulse Rate 94 79 Respiratory Rate 24 H 18 Blood Pressure 104/64 Pulse Oximetry 97 97 Oxygen Delivery Nasal Cannula Oxygen Flow Rate 4 02/08/25 21:15 02/08/25 21:15 02/08/25 21:25 Temperature Pulse Rate 79 79 Respiratory Rate 20 20 Blood Pressure Pulse Oximetry 97 Oxygen Delivery Nasal Cannula Oxygen Flow Rate 4 02/09/25 02:21 02/09/25 02:31 02/09/25 04:38 Temperature 97.7 F Pulse Rate 79 79 67 Respiratory Rate 18 18 18 Blood Pressure 97/44 L Pulse Oximetry 100 Oxygen Delivery Oxygen Flow Rate Intake/Output Intake/Output: Intake & Output 02/06/25 02/07/25 02/08/25 02/09/25 23:59 23:59 23:59 23:59 Intake Total 1720 1330 1200.0 873.8 Output Total 2053 2100 1300 750 Balance -333 -770 -100.0 123.8 Meds/Results Medications: Active Medications Generic Name Dose Route Start Last Admin Trade Name Freq PRN Reason Stop Dose Admin Acetaminophen 650 mg 02/04/25 01:51 02/08/25 23:13 Acetaminophen 325 Mg Tablet PO 650 mg Q6H PRN Administration Mild Pain (1-3) or Fever Acyclovir 400 mg 02/04/25 09:00 02/09/25 08:54 Acyclovir 400 Mg Tablet PO 400 mg TID ROSA MARIA Administration Azithromycin 500 mg 02/09/25 09:00 02/09/25 08:54 Azithromycin 250 Mg Tablet PO 500 mg DAILY ROSA MARIA Administration Clopidogrel Bisulfate 75 mg 02/04/25 09:00 02/09/25 08:53 Clopidogrel Bisulfate 75 Mg Tablet PO 75 mg DAILY ROSA MARIA Administration Dextrose 12.5 gm 02/04/25 01:51 Dextrose 50% 25 Gm/50 Ml Syringe IV PUSH PRN PRN Hypoglycemia Protocol Ethambutol HCl 800 mg 02/04/25 09:00 02/09/25 08:54 Ethambutol Hcl 400 Mg Tablet PO 800 mg DAILY ROSA MARIA Administration Fluticasone/Umeclidinium/Vilanterol 1 puff 02/04/25 08:00 02/08/25 07:34 Fluticasone/Umeclidin/Vilanter 200-62.5-25 Mcg Ellipta INHALATION 1 puff DAILYRT ROSA MARIA Administration Gabapentin 400 mg 02/06/25 09:00 02/09/25 08:54 Gabapentin 400 Mg Capsule PO 400 mg QID ROSA MARIA Administration Glucagon 1 mg 02/04/25 01:51 Glucagon For Inj 1 Mg Vial IM PRN PRN Hypoglycemia Protocol Glucose 15 gm 02/04/25 01:51 Glucose Oral Gel 15 Gm Of Glucse In 37.5 Gm Tube PO PRN PRN Hypoglycemia Protocol Guaifenesin 600 mg 02/04/25 09:00 02/09/25 08:54 Guaifenesin 12 Hr 600 Mg Tabcr PO 600 mg Q12HR ROSA MARIA Administration Dextrose 1,000 mls @ 100 mls/hr 02/04/25 01:51 Dextrose 5% 1,000 Ml IVPB PRN PRN Hypoglycemia Protocol Sodium Chloride 1,000 mls @ 75 mls/hr 02/07/25 23:50 02/09/25 05:18 Normal Saline Iv IV CONT 75 mls/hr .[id number] ROSA MARIA Administration Insulin Aspart 2 - 5 units 02/04/25 08:00 02/09/25 08:00 Insulin Aspart (*Bkc) 100 Units/Ml SUB-Q Not Given TIDWM ROSA MARIA Protocol Insulin Aspart 1 - 2 units 02/04/25 21:00 02/08/25 21:53 Insulin Aspart (*Bkc) 100 Units/Ml SUB-Q Not Given HS ROSA MARIA Protocol Levalbuterol HCl 1.25 mg 02/08/25 08:00 02/09/25 08:16 Levalbuterol Neb 1.25 Mg/3 Ml INHALATION 1.25 mg Q6HRT ROSA MARIA Administration Melatonin 5 mg 02/04/25 23:28 02/08/25 23:13 Melatonin 5 Mg Tablet PO 5 mg HS PRN Administration Sleep Miscellaneous Information 0 each 02/04/25 06:45 02/06/25 08:39 Clofazimine 50 Mg Capsule- Nonformulary. Please Obtain A Home Supply If Possible. XX 03/06/25 06:44 Not Given CLARIFY ROSA MARIA Montelukast Sodium 10 mg 02/04/25 21:00 02/08/25 20:58 Montelukast Sodium 10 Mg Tablet PO 10 mg HS ROSA MARIA Administration Mycophenolate Mofetil 1,000 mg 02/04/25 09:00 02/08/25 20:58 Mycophenolate Mofetil 250 Mg Capsule PO 1,000 mg Q12HR ROSA MARIA Administration Non-Formulary Medication 100 mg 02/04/25 09:00 Clofazimine PO 03/06/25 08:59 DAILY ROSA MARIA Ondansetron HCl 4 mg 02/06/25 16:09 Ondansetron Inj 4 Mg/2 Ml Vial IV PUSH Q6H PRN Nausea And Vomiting Pantoprazole Sodium 40 mg 02/04/25 09:00 02/09/25 08:54 Pantoprazole 40 Mg Tablet PO 40 mg BID ROSA MARIA Administration Rivaroxaban 20 mg 02/04/25 17:00 02/08/25 17:40 Rivaroxaban 20 Mg Tablet PO Not Given DAILY@1700 ROSA MARIA Tacrolimus 0.5 mg 02/05/25 09:00 02/09/25 08:54 Tacrolimus 0.5 Mg Capsule PO 0.5 mg Q48H ROSA MARIA Administration Tamsulosin HCl 0.4 mg 02/09/25 09:00 02/09/25 08:54 Tamsulosin Hcl 0.4 Mg Capsule PO 0.4 mg QAM ROSA MARIA Administration Radiology Results: ITS Impressions Chest CTA 02/03/25 23:18 IMPRESSION: No pulmonary embolus. No thoracic aortic dissection. Redemonstration of chronic panlobular emphysematous change with right apical consolidation with cavitary change and pleural-based scarring within the left upper lobe with cavitary change. Chest X-Ray 02/08/25 05:20 IMPRESSION: 1. Chronic airspace opacities in the upper lobes and chronic nodule in lateral right midlung zone, consistent with chronic pneumonia. 2. Emphysema. Labs Labs: Laboratory Results - last 24 hr 02/08/25 02/08/25 02/08/25 11:25 17:00 19:50 WBC RBC Hgb Hct MCV MCH MCHC RDW Plt Count MPV Sodium Potassium Chloride Carbon Dioxide Anion Gap BUN Creatinine Estim Creat Clear Calc Estimated GFR Glucose POC Capillary Glucose 122 H 154 H 138 H Calcium Total Bilirubin AST ALT Alkaline Phosphatase Total Protein Albumin 02/09/25 02/09/25 05:18 07:57 WBC 11.6 H RBC 2.79 L Hgb 9.4 L Hct 28.5 L MCV 102.2 H MCH 33.7 MCHC 33.0 RDW 18.1 H Plt Count 292 MPV 9.8 Sodium 137 Potassium 4.0 Chloride 104 Carbon Dioxide 31 H Anion Gap 2 L BUN 18 Creatinine 0.57 L Estim Creat Clear Calc 93 Estimated GFR > 60 Glucose 102 POC Capillary Glucose 81 Calcium 8.5 Total Bilirubin 0.8 AST 35 ALT 22 Alkaline Phosphatase 111 Total Protein 7.0 Albumin 3.0 L Quality VTE Prophylaxis VTE prophylaxis: pharmacologic ordered (On rivaroxaban) Hospitalist MIPS Advance Care Plan I have confirmed that the patient's Advanced Care Plan is present, code status is documented, or surrogate decision maker is listed in patient medical record.: Yes Medication Reconciliation I have utilized all available resources to obtain, update and review the patients current medications (includes all prescriptions, OTC, herbals, cannabis, and nutritional supplements).: Yes
[2025-02-09] MEDS: mycophenolate mofetiL 250 MG CAPSULE 1000 MG PO ×2 (09:46→21:11)
--- NOTE | 2025-02-09 10:20 | P.PNPL_ITS ---
Progress Note: A&P Assessment and Plan (1) Acute exacerbation of chronic obstructive airways disease: Code(s): J44.1 - Chronic obstructive pulmonary disease with (acute) exacerbation Status: Acute Assessment and Plan: This 59-year-old male patient, with a medical history of advanced COPD and ongoing treatment for atypical mycobacterial infection, presented with a few days of worsening shortness of breath, wheezing, and hypoxemia. Chest imaging revealed no new infiltrates indicative of a lower respiratory tract infection or congestive heart failure. His hypoxemia and wheezing improved following treatment with a single dose of Decadron administered by EMS on the way to the emergency room, along with short-acting bronchodilators and initiation of a new antibiotic regimen. Presently, his respiratory condition has improved significantly, and he reports feeling better, although not yet at his baseline health level. He has been unable to produce sputum for culture. Respiratory status has been stable over the last 72 hours. The patient has been taken off cephalosporin for a lower respiratory tract infection and is currently on Zithromax 500 mg daily, which is a double dose compared to what he was receiving for his atypical mycobacterial infection. His W BC has significantly decreased over the last 48 hours Plan: From a respiratory standpoint, the patient is stable for discharge. The higher dose of Zithromax administered during hospitalization is no longer necessary; he should resume his previous antibiotic regimen for atypical mycobacterial infection, including Zithromax 250 mg daily.. He will continue using Trelegy as a maintenance bronchodilator and short-acting bronchodilators as needed. Supplemental oxygen should be continued at the prior rate used before hospitalization. The patient is advised to schedule an appointment with his case assembler in approximately 3-4 weeks. I will be signing off on this case; please feel free to contact me with any questions. 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 Review of Systems Review of Systems: All systems reviewed & are unremarkable except as noted in HPI and below (HPI and below) Exam Narrative: GENERAL APPEARANCE: Well developed, well nourished, alert and cooperative, and appears to be in no acute distress while on supplemental oxygen via nasal cannula SKIN: Inspection of the skin reveals no rashes, ulcerations or petechiae. HEENT: Sclerae anicteric and conjunctivae pink and moist. Extraocular movements were intact and pupils were equal, round. NECK: Supple. There was no thyroid enlargement, and no tenderness, or masses were felt. CHEST: Normal AP diameter and normal contour without any kyphoscoliosis. LUNGS: Hyperinflated lungs, distant breath sounds no wheezing CARDIAC: There was a regular rate and rhythm without any murmurs, gallops, rubs. ABDOMEN: Soft and nontender with normal bowel sounds. There was no organomegaly. LYMPH NODES: No lymphadenopathy was appreciated in the neck. EXTREMITIES: No cyanosis, clubbing or edema. NEUROLOGIC: Alert and oriented x 3. Normal affect. Objective Data Vital Signs Vital Signs: Vital Signs - 24 hr 02/08/25 14:10 02/08/25 14:27 02/08/25 16:00 Temperature 36.5 C Pulse Rate 89 89 70 Respiratory Rate 20 20 20 Blood Pressure 109/68 Pulse Oximetry 95 Oxygen Delivery Oxygen Flow Rate 02/08/25 16:40 02/08/25 19:45 02/08/25 20:00 Temperature 36.5 C Pulse Rate 94 79 Respiratory Rate 24 H 18 Blood Pressure 104/64 Pulse Oximetry 97 97 Oxygen Delivery Nasal Cannula Oxygen Flow Rate 4 02/08/25 21:15 02/08/25 21:15 02/08/25 21:25 Temperature Pulse Rate 79 79 Respiratory Rate 20 20 Blood Pressure Pulse Oximetry 97 Oxygen Delivery Nasal Cannula Oxygen Flow Rate 4 02/09/25 02:21 02/09/25 02:31 02/09/25 04:38 Temperature 36.5 C Pulse Rate 79 79 67 Respiratory Rate 18 18 18 Blood Pressure 97/44 L Pulse Oximetry 100 Oxygen Delivery Oxygen Flow Rate Intake/Output Intake/Output: Intake & Output 02/06/25 02/07/25 02/08/25 02/09/25 23:59 23:59 23:59 23:59 Intake Total 1720 1330 1200.0 873.8 Output Total 2053 2100 1300 750 Balance -333 -770 -100.0 123.8 Meds/Results Medications: Active Medications Generic Name Dose Route Start Last Admin Trade Name Freq PRN Reason Stop Dose Admin Acetaminophen 650 mg 02/04/25 01:51 02/08/25 23:13 Acetaminophen 325 Mg Tablet PO 650 mg Q6H PRN Administration Mild Pain (1-3) or Fever Acyclovir 400 mg 02/04/25 09:00 02/09/25 08:54 Acyclovir 400 Mg Tablet PO 400 mg TID ROSA MARIA Administration Azithromycin 500 mg 02/09/25 09:00 02/09/25 08:54 Azithromycin 250 Mg Tablet PO 500 mg DAILY ROSA MARIA Administration Clopidogrel Bisulfate 75 mg 02/04/25 09:00 02/09/25 08:53 Clopidogrel Bisulfate 75 Mg Tablet PO 75 mg DAILY ROSA MARIA Administration Dextrose 12.5 gm 02/04/25 01:51 Dextrose 50% 25 Gm/50 Ml Syringe IV PUSH PRN PRN Hypoglycemia Protocol Ethambutol HCl 800 mg 02/04/25 09:00 02/09/25 08:54 Ethambutol Hcl 400 Mg Tablet PO 800 mg DAILY ROSA MARIA Administration Fluticasone/Umeclidinium/Vilanterol 1 puff 02/04/25 08:00 02/08/25 07:34 Fluticasone/Umeclidin/Vilanter 200-62.5-25 Mcg Ellipta INHALATION 1 puff DAILYRT ROSA MARIA Administration Gabapentin 400 mg 02/06/25 09:00 02/09/25 08:54 Gabapentin 400 Mg Capsule PO 400 mg QID ROSA MARIA Administration Glucagon 1 mg 02/04/25 01:51 Glucagon For Inj 1 Mg Vial IM PRN PRN Hypoglycemia Protocol Glucose 15 gm 02/04/25 01:51 Glucose Oral Gel 15 Gm Of Glucse In 37.5 Gm Tube PO PRN PRN Hypoglycemia Protocol Guaifenesin 600 mg 02/04/25 09:00 02/09/25 08:54 Guaifenesin 12 Hr 600 Mg Tabcr PO 600 mg Q12HR ROSA MARIA Administration Dextrose 1,000 mls @ 100 mls/hr 02/04/25 01:51 Dextrose 5% 1,000 Ml IVPB PRN PRN Hypoglycemia Protocol Sodium Chloride 1,000 mls @ 75 mls/hr 02/07/25 23:50 02/09/25 05:18 Normal Saline Iv IV CONT 75 mls/hr .[id number] ROSA MARIA Administration Insulin Aspart 2 - 5 units 02/04/25 08:00 02/09/25 08:00 Insulin Aspart (*Bkc) 100 Units/Ml SUB-Q Not Given TIDWM ROSA MARIA Protocol Insulin Aspart 1 - 2 units 02/04/25 21:00 02/08/25 21:53 Insulin Aspart (*Bkc) 100 Units/Ml SUB-Q Not Given HS ROSA MARIA Protocol Levalbuterol HCl 1.25 mg 02/08/25 08:00 02/09/25 08:16 Levalbuterol Neb 1.25 Mg/3 Ml INHALATION 1.25 mg Q6HRT ROSA MARIA Administration Melatonin 5 mg 02/04/25 23:28 02/08/25 23:13 Melatonin 5 Mg Tablet PO 5 mg HS PRN Administration Sleep Miscellaneous Information 0 each 02/04/25 06:45 02/06/25 08:39 Clofazimine 50 Mg Capsule- Nonformulary. Please Obtain A Home Supply If Possible. XX 03/06/25 06:44 Not Given CLARIFY ROSA MARIA Montelukast Sodium 10 mg 02/04/25 21:00 02/08/25 20:58 Montelukast Sodium 10 Mg Tablet PO 10 mg HS ROSA MARIA Administration Mycophenolate Mofetil 1,000 mg 02/04/25 09:00 02/09/25 09:46 Mycophenolate Mofetil 250 Mg Capsule PO 1,000 mg Q12HR ROSA MARIA Administration Non-Formulary Medication 100 mg 02/04/25 09:00 Clofazimine PO 03/06/25 08:59 DAILY ROSA MARIA Ondansetron HCl 4 mg 02/06/25 16:09 Ondansetron Inj 4 Mg/2 Ml Vial IV PUSH Q6H PRN Nausea And Vomiting Pantoprazole Sodium 40 mg 02/04/25 09:00 02/09/25 08:54 Pantoprazole 40 Mg Tablet PO 40 mg BID ROSA MARIA Administration Rivaroxaban 20 mg 02/04/25 17:00 02/08/25 17:40 Rivaroxaban 20 Mg Tablet PO Not Given DAILY@1700 [facility] Tacrolimus 0.5 mg 02/05/25 09:00 02/09/25 08:54 Tacrolimus 0.5 Mg Capsule PO 0.5 mg Q48H ROSA MARIA Administration Tamsulosin HCl 0.4 mg 02/09/25 09:00 02/09/25 08:54 Tamsulosin Hcl 0.4 Mg Capsule PO 0.4 mg QAM ROSA MARIA Administration Radiology Results: ITS Impressions Chest CTA 02/03/25 23:18 IMPRESSION: No pulmonary embolus. No thoracic aortic dissection. Redemonstration of chronic panlobular emphysematous change with right apical consolidation with cavitary change and pleural-based scarring within the left upper lobe with cavitary change. Chest X-Ray 02/08/25 05:20 IMPRESSION: 1. Chronic airspace opacities in the upper lobes and chronic nodule in lateral right midlung zone, consistent with chronic pneumonia. 2. Emphysema. Labs Labs: Laboratory Results - last 24 hr 02/08/25 02/08/25 02/08/25 11:25 17:00 19:50 WBC RBC Hgb Hct MCV MCH MCHC RDW Plt Count MPV Sodium Potassium Chloride Carbon Dioxide Anion Gap BUN Creatinine Estim Creat Clear Calc Estimated GFR Glucose POC Capillary Glucose 122 H 154 H 138 H Calcium Total Bilirubin AST ALT Alkaline Phosphatase Total Protein Albumin 02/09/25 02/09/25 05:18 07:57 WBC 11.6 H RBC 2.79 L Hgb 9.4 L Hct 28.5 L MCV 102.2 H MCH 33.7 MCHC 33.0 RDW 18.1 H Plt Count 292 MPV 9.8 Sodium 137 Potassium 4.0 Chloride 104 Carbon Dioxide 31 H Anion Gap 2 L BUN 18 Creatinine 0.57 L Estim Creat Clear Calc 93 Estimated GFR > 60 Glucose 102 POC Capillary Glucose 81 Calcium 8.5 Total Bilirubin 0.8 AST 35 ALT 22 Alkaline Phosphatase 111 Total Protein 7.0 Albumin 3.0 L
--- NOTE | 2025-02-09 11:49 | PCNFU ---
Nutrition Follow-Up Complete: 1. Severe malnutrition related to chronic swallowing issues as evidenced by weight loss 14%/2 months; intakes <75% needs >1 month; severe muscle wasting and fat loss. 2. Altered nutrition related lab values related to type 2 diabetes as evidenced by BG 310 Goal: Adequate PO intakes at least 75% meals and supplements Textures appropriate for patient needs Patient is progressing towards goal. We will continue current goal. Pt current nutrition is Minced and Moist, Level 5/DBCC with Glucerna shakes TID.. Last recorded weight is 55.1 kg, up from 53.2 kg on admit. Bowel Motility:+BM reported 02/08 Labs Reviewed:Cr 0.57, Alb 3.0, Hct 28.5, Hgb 9.4 Meds Noted: Plavix, NovoLog, Protonix, NS, Singular, Mucinex. Skin: WNL Additional Notes: Patient is tolerating Minced and Moist, Level 5/DBCC diet. Oral Intake > 75% of meals. Diet supplements are providing an additional 220 kcal and 10 gm protein. Agree with diet orders. Monitoring intakes, weights, labs, supplement tolerance, swallowing ability, plan of care Follow up in 5 days
[2025-02-09 11:50] LABS: Glucose Point of Care 141 mg/dl (65-105)
[2025-02-09] MEDS: RIVAROXABAN 20 MG TABLET PO (16:54)
[2025-02-09 17:02] LABS: Glucose Point of Care 159 mg/dl (65-105)
--- NOTE | 2025-02-09 18:42 | P.CONGI_ITS ---
Assessment and Plan Assessment and plan (1) Dysphagia: Code(s): R13.10 - Dysphagia, unspecified Status: Acute Assessment and Plan: The patient's presentation of dysphagia and chest pain is consistent with chronic esophageal stenosis. While pill-induced esophagitis was a possible etiology three months prior, its persistence suggests the development of stenotic sequelae. Encsl-vgdlpf-lvqr disease (GVHD), a known complication post- bone marrow transplantation, remains a crucial differential diagnosis, as its endoscopic and histological features can mimic other causes of esophageal stenosis. To differentiate between these possibilities, I will schedule an esophagogastroduodenoscopy (EGD) with biopsies. I will specifically request the pathologist's expertise in identifying the underlying etiology. If dilation is indicated, it will be performed during the same procedure tomorrow. 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. He was admitted on January 24 due to shortness of breath and exacerbation of his underlying condition. On October 26, he underwent an EGD for dysphagia, and a presumptive diagnosis of pill induced esophagitis was made, and biopsies were compatible. However, the patient continues to have dysphagia mainly to solids associated with moderate to severe chest pain episodes. Review of Systems 2 Review of Systems: All systems reviewed & are unremarkable except as noted in HPI and below [facility] Past Medical History Medical History (Updated 02/09/25 @ 18:44 by Gianfranco Rogers MD) Type 2 diabetes mellitus Chronic obstructive pulmonary disease Systolic congestive heart failure Pancreatitis Non-tuberculous mycobacterial pneumonia MSSA bacteremia Osteopenia Pseudomonas pneumonia Mycobacterium avium complex Chronic dsxws-jntuyq-byck disease Chronic respiratory failure with hypoxia, on home oxygen therapy Coronary artery disease Pill esophagitis ST elevation (STEMI) myocardial infarction (12/30/22) Chronic anticoagulation Immunocompromised patient patient on anti rejection medications Positive nasal culture for methicillin resistant Staphylococcus aureus Deep venous thrombosis Chronic obstructive pulmonary disease Sciatica Eczema Anxiety Depression Peyronie's disease Emphysema/COPD Acute myeloid leukemia (2008) status post hematopoietic stem cell transplantation with resultant chronic lydkw-ebrlyv-wqov disease. Peripheral neuropathy Pulmonary emboli Hyperlipidemia Surgical History Surgical History History of allogeneic hematopoietic stem cell transplant History of bone marrow transplant (2008) History of cataract extraction with lens replacement History of heart artery stent (12/30/22) 100% occlusion mid RCA s/p drug-eluting stent, left coronary system with kjkd-rn-xeaecutg disease History of orthopedic surgery Left tibia liz placement Family History Family History Mother Acute myocardial infarction, Onset Age: 42 Father COPD (chronic obstructive pulmonary disease) Diabetes mellitus Alcohol abuse Social History Social History Social History: Surrogate medical decision maker: Lissy Kaiser, friend/roommate. Code status: Full code. Years smoked: 44 Smoking status: Light tobacco smoker Tobacco type: cigarettes Smoking end date: 08/07/22 Additional smoking assessment comments: on nicotine patches, states he is currently on patches Alcohol intake: never Substance use: never Substance use type: does not use Do You Feel Safe in your Home?: Yes Lack of Transportation: No Lack of Food: Never True Current Housing: I Have Housing Concerned About Future Housing: No Difficulty Paying Gas/Electric Bills: No Difficulty Paying for Meds: No Currently Unemployed: No Education: High School Diploma/GED Difficulty w/ Childcare or Family Care: No Living arrangements: with friend(s) Additional living arrangements comments: He lives with his roommate in [place]. Occupation/Education: unemployed Spiritual care concerns: No Agree to blood products: Yes Meds Home Medications and Allergies Home Medications ?Medication ?Instructions ?Recorded ?Confirmed ?Type rivaroxaban 20 mg tablet (Xarelto) 20 mg PO QAM 02/06/23 02/04/25 History acyclovir 400 mg tablet 400 mg PO TID #90 tabs 01/28/24 02/04/25 Rx clopidogrel 75 mg tablet 75 mg PO DAILY #90 tabs 01/28/24 02/04/25 Rx montelukast 10 mg tablet 10 mg PO HS #30 tabs 01/28/24 02/04/25 Rx (Singulair) mycophenolate mofetil 500 mg tablet 1,000 mg (2 x 500 mg) PO Q12H #10 01/28/24 02/04/25 Rx tabs tacrolimus 0.5 mg capsule, 0.5 mg PO EVERY OTHER DAY #30 caps 01/28/24 02/04/25 Rx immediate-release (Prograf) albuterol sulfate 90 mcg/actuation 1 puff inhalation Q4-6H PRN 10/23/24 02/04/25 History aerosol inhaler Shortness Of Breath Or Wheezing ondansetron 4 mg disintegrating 4 mg PO Q8H PRN Nausea And Vomiting 10/23/24 02/04/25 History tablet pantoprazole 40 mg tablet,delayed 40 mg PO Q12H 10/23/24 02/04/25 History release clofazimine 50 mg capsule 100 mg PO DAILY 11/25/24 02/04/25 History ethambutol 400 mg tablet 1,200 mg PO DAILY 11/25/24 02/04/25 History isavuconazonium sulfate 186 mg 372 mg PO DAILY 11/25/24 02/04/25 History capsule (Cresemba) albuterol sulfate 2.5 mg/3 mL See Rx Instructions .Route 01/27/25 02/04/25 Rx (0.083 %) solution for nebulization .COMPLEX #180 mL azithromycin 250 mg tablet 250 mg PO DAILY 02/04/25 02/04/25 History fluticasone fur. 200 mcg-umeclid 1 inh inhalation DAILY 02/04/25 02/04/25 History 62.5 mcg-vilant 25 mcg inhalat.powder (Trelegy Ellipta) gabapentin 300 mg capsule 300 mg PO QID 02/04/25 02/04/25 History Allergies Allergy/AdvReac Type Severity Reaction Status Date / Time adhesive tape AdvReac Unknown PAPER Verified 02/03/25 17:34 TAPE,REDNESS AND IRRITATION Vital Signs Vital Signs - 24 hr 02/08/25 19:45 02/08/25 20:00 02/08/25 21:15 Temperature 97.7 F Pulse Rate 79 79 Respiratory Rate 18 20 Blood Pressure 104/64 Pulse Oximetry 97 97 Oxygen Delivery Nasal Cannula Oxygen Flow Rate 4 02/08/25 21:15 02/08/25 21:25 02/09/25 02:21 Temperature Pulse Rate 79 79 Respiratory Rate 20 18 Blood Pressure Pulse Oximetry 97 Oxygen Delivery Nasal Cannula Oxygen Flow Rate 4 02/09/25 02:31 02/09/25 04:38 02/09/25 08:00 Temperature 97.7 F 97.9 F Pulse Rate 79 67 93 Respiratory Rate 18 18 20 Blood Pressure 97/44 L 130/58 L Pulse Oximetry 100 97 Oxygen Delivery Oxygen Flow Rate 02/09/25 08:03 02/09/25 08:15 02/09/25 08:54 Temperature Pulse Rate 78 79 Respiratory Rate 18 18 18 Blood Pressure Pulse Oximetry 100 Oxygen Delivery Nasal Cannula Oxygen Flow Rate 4 02/09/25 13:50 02/09/25 14:03 02/09/25 14:04 Temperature Pulse Rate 78 78 Respiratory Rate 18 18 Blood Pressure Pulse Oximetry 97 Oxygen Delivery Nasal Cannula Oxygen Flow Rate 4 02/09/25 16:00 Temperature 98.0 F Pulse Rate 88 Respiratory Rate 20 Blood Pressure 119/70 Pulse Oximetry 100 Oxygen Delivery Oxygen Flow Rate Exam 2 Narrative: GENERAL APPEARANCE: Well developed, well nourished, alert and cooperative, and appears to be in no acute distress while on supplemental oxygen via nasal cannula SKIN: Inspection of the skin reveals no rashes, ulcerations or petechiae. HEENT: Sclerae anicteric and conjunctivae pink and moist. Extraocular movements were intact and pupils were equal, round. NECK: Supple. There was no thyroid enlargement, and no tenderness, or masses were felt. CHEST: Normal AP diameter and normal contour without any kyphoscoliosis. LUNGS: Hyperinflated lungs, distant breath sounds no wheezing CARDIAC: There was a regular rate and rhythm without any murmurs, gallops, rubs. ABDOMEN: Soft and nontender with normal bowel sounds. There was no organomegaly. LYMPH NODES: No lymphadenopathy was appreciated in the neck. EXTREMITIES: No cyanosis, clubbing or edema. NEUROLOGIC: Alert and oriented x 3. Normal affect. Results Labs 02/09/25 05:18 02/09/25 05:18 Labs: Short CBC 02/09/25 Range/Units 05:18 WBC 11.6 H (4.5-10.0) K/mm3 Hgb 9.4 L (14.0-18.0) g/dL Hct 28.5 L (42.0-52.0) % Plt Count 292 (150-375) k/mm3 BMP 02/09/25 05:18 Sodium 137 Potassium 4.0 Chloride 104 Carbon Dioxide 31 H BUN 18 Creatinine 0.57 L Glucose 102 Calcium 8.5 Liver Function 02/09/ Range/Units 05:18 Total Bilirubin 0.8 (0.2-1.3) mg/dL AST 35 (17-59) U/L ALT 22 (6-50) U/L Alkaline Phosphatase 111 (38-126) U/L Albumin 3.0 L (3.5-5.1) g/dL
[2025-02-09 21:01] LABS: Glucose Point of Care 183 mg/dl (65-105)
[2025-02-09] MEDS: MONTELUKAST SODIUM 10 MG TABLET PO (21:11)
[2025-02-10] VITALS (17 sets, daily range): BP systolic 89–137; BP diastolic 54–104; PULSE 82–110; RESP 18–24; TEMP 35.9–37.1; O2SAT 94–100
[2025-02-10] MEDS: LEVALBUTEROL NEB 1.25 MG/3 ML INHALATION ×4 (01:52→19:55)
[2025-02-10] MEDS: ACETAMINOPHEN 325 MG TABLET 650 MG PO (02:26)
[2025-02-10] MEDS: SODIUM CHLORIDE 0.9% IV 1,000 ML 75 ML IV CONT ×2 (05:06→21:30)
[2025-02-10 07:49] LABS: Glucose Point of Care 102 mg/dl (65-105)
[2025-02-10] MEDS: FLUTICASONE/UMECLIDIN/VILANTER 200-62.5-25 MCG ELLIPTA 1 PUFF INHALATION (07:58)
[2025-02-10] MEDS: AZITHROMYCIN 250 MG TABLET 500 MG PO (09:20)
[2025-02-10] MEDS: PANTOPRAZOLE 40 MG TABLET PO ×2 (09:21→17:02)
[2025-02-10] MEDS: ACYCLOVIR 400 MG TABLET PO ×2 (09:22→17:02)
[2025-02-10] MEDS: TAMSULOSIN HCL 0.4 MG CAPSULE PO (09:24)
[2025-02-10] MEDS: GABAPENTIN 400 MG CAPSULE PO ×3 (09:24→22:23)
[2025-02-10] MEDS: ETHAMBUTOL HCL 400 MG TABLET 800 MG PO (09:24)
[2025-02-10] MEDS: guaiFENesin 12 HR 600 MG TABCR PO ×2 (09:25→22:23)
[2025-02-10] MEDS: mycophenolate mofetiL 250 MG CAPSULE 1000 MG PO ×2 (09:26→22:22)
[2025-02-10 12:00] LABS: Glucose Point of Care 129 mg/dl (65-105)
--- NOTE | 2025-02-10 13:59 | PC.NURSE ---
To GI lab via [facility].
--- NOTE | 2025-02-10 14:00 | PC.NURSE ---
To GI Lab via [facility].
[2025-02-10] MEDS: LACTATED RINGERS 1,000 ML 150 ML IV CONT (14:20)
[2025-02-10 14:26] LABS: Glucose Point of Care 101 mg/dl (65-105)
--- NOTE | 2025-02-10 14:35 | SUR.PREOP ---
This patients last dose of plavix was on saturday02/09/25 and his last dose of xarelto was on saturday02/09/25. Dr. Cool was made aware and he is okay to proceed with procedure.
--- NOTE | 2025-02-10 15:24 | WPDANESEPPF ---
Anes - Initial Pre Proc Eval Procedure: Operation Date: 02/10/25 14:30 Proposed Procedures p Esophagogastroduodenoscopy - Gianfranco Rogers MD Date/Time: 02/10/25 15:24 Surgeon: Alex Sutherland MD Pre Op Diagnosis: Acute on chronic respiratory failure Patient Data Age: 59 Gender: M Height: 1.8 m Weight: 57.9 kg Last Vital Signs Temp 96.7 F L 02/10/25 14:15 Pulse 100 02/10/25 14:15 Resp 24 H 02/10/25 14:15 BP 137/104 H 02/10/25 14:15 Pulse Ox 100 02/10/25 14:15 O2 Del Method Room Air 02/10/25 14:15 O2 Flow Rate 4 02/10/25 08:18 FiO2 36 02/07/25 14:17 Allergies Allergy/AdvReac Type Severity Reaction Status Date / Time adhesive tape AdvReac Unknown PAPER Verified 02/03/25 17:34 TAPE,REDNESS AND IRRITATION Home Medications ?Medication ?Instructions ?Recorded ?Confirmed ?Type rivaroxaban 20 mg tablet (Xarelto) 20 mg PO QAM 02/06/23 02/04/25 History acyclovir 400 mg tablet 400 mg PO TID #90 tabs 01/28/24 02/04/25 Rx clopidogrel 75 mg tablet 75 mg PO DAILY #90 tabs 01/28/24 02/04/25 Rx montelukast 10 mg tablet 10 mg PO HS #30 tabs 01/28/24 02/04/25 Rx (Singulair) mycophenolate mofetil 500 mg tablet 1,000 mg (2 x 500 mg) PO Q12H #10 01/28/24 02/04/25 Rx tabs tacrolimus 0.5 mg capsule, 0.5 mg PO EVERY OTHER DAY #30 caps 01/28/24 02/04/25 Rx immediate-release (Prograf) albuterol sulfate 90 mcg/actuation 1 puff inhalation Q4-6H PRN 10/23/24 02/04/25 History aerosol inhaler Shortness Of Breath Or Wheezing ondansetron 4 mg disintegrating 4 mg PO Q8H PRN Nausea And Vomiting 10/23/24 02/04/25 History tablet pantoprazole 40 mg tablet,delayed 40 mg PO Q12H 10/23/24 02/04/25 History release clofazimine 50 mg capsule 100 mg PO DAILY 11/25/24 02/04/25 History ethambutol 400 mg tablet 1,200 mg PO DAILY 11/25/24 02/04/25 History isavuconazonium sulfate 186 mg 372 mg PO DAILY 11/25/24 02/04/25 History capsule (Cresemba) albuterol sulfate 2.5 mg/3 mL See Rx Instructions .Route 01/27/25 02/04/25 Rx (0.083 %) solution for nebulization .COMPLEX #180 mL azithromycin 250 mg tablet 250 mg PO DAILY 02/04/25 02/04/25 History fluticasone fur. 200 mcg-umeclid 1 inh inhalation DAILY 02/04/25 02/04/25 History 62.5 mcg-vilant 25 mcg inhalat.powder (Trelegy Ellipta) gabapentin 300 mg capsule 300 mg PO QID 02/04/25 02/04/25 History Laboratory Tests 02/09/25 02/09/25 02/10/25 16:59 20:58 07:41 POC Capillary Glucose 159 H mg/dl 183 H mg/dl 102 mg/dl (65-105) (65-105) (65-105) 02/10/25 02/10/25 11:46 14:24 POC Capillary Glucose 129 H mg/dl 101 mg/dl (65-105) (65-105) Patient hx anesthesia problems: none Family hx anesthesia problems: none Results Review: All pre-operative results and documents have been reviewed as part of the pre-operative evaluation. [facility] Past Medical History Medical History Type 2 diabetes mellitus Chronic obstructive pulmonary disease Systolic congestive heart failure Pancreatitis Non-tuberculous mycobacterial pneumonia MSSA bacteremia Osteopenia Pseudomonas pneumonia Mycobacterium avium complex Chronic onuow-hxybvf-gvdx disease Chronic respiratory failure with hypoxia, on home oxygen therapy Coronary artery disease Pill esophagitis ST elevation (STEMI) myocardial infarction (12/30/22) Chronic anticoagulation Immunocompromised patient patient on anti rejection medications Positive nasal culture for methicillin resistant Staphylococcus aureus Deep venous thrombosis Chronic obstructive pulmonary disease Sciatica Eczema Anxiety Depression Peyronie's disease Emphysema/COPD Acute myeloid leukemia (2008) status post hematopoietic stem cell transplantation with resultant chronic aslwr-dzagcf-xoth disease. Peripheral neuropathy Pulmonary emboli Hyperlipidemia Surgical History Surgical History History of allogeneic hematopoietic stem cell transplant History of bone marrow transplant (2008) History of cataract extraction with lens replacement History of heart artery stent (12/30/22) 100% occlusion mid RCA s/p drug-eluting stent, left coronary system with jkdr-ih-rmgktydp disease History of orthopedic surgery Left tibia liz placement Family History Family History Mother Acute myocardial infarction, Onset Age: 42 Father COPD (chronic obstructive pulmonary disease) Diabetes mellitus Alcohol abuse Social History Social History Social History: Surrogate medical decision maker: Lissy Kaiser, friend/roommate. Code status: Full code. Years smoked: 44 Smoking status: Light tobacco smoker Tobacco type: cigarettes Smoking end date: 08/07/22 Additional smoking assessment comments: on nicotine patches, states he is currently on patches Alcohol intake: never Substance use: never Substance use type: does not use Do You Feel Safe in your Home?: Yes Lack of Transportation: No Lack of Food: Never True Current Housing: I Have Housing Concerned About Future Housing: No Difficulty Paying Gas/Electric Bills: No Difficulty Paying for Meds: No Currently Unemployed: No Education: High School Diploma/GED Difficulty w/ Childcare or Family Care: No Living arrangements: with friend(s) Additional living arrangements comments: He lives with his roommate in [place]. Occupation/Education: unemployed Spiritual care concerns: No Agree to blood products: Yes Anes - Eval Final PreProcedure Day of Procedure 02/10/25 15:24 Patient weight: cachectic Heart: regular rate and rhythm Lungs: normal air movement and decreased breath sounds Airway: Mallampati scale and special considerations (Edentulous. ) Neurological: alert and oriented Last oral intake: >/= 8 hours ASA classification: IV Emergent: no Anesthetic plan: proceed Anesthesia type and monitoring: general GIVS and standard monitoring Results Review: All pre-operative results and documents have been reviewed as part of the pre-operative evaluation. Complicated pt w many comorbid conditions, COPD exacerbation now w pneumonia that has been treated and somewhat improved. Has dysphagia which is sig and EGD today for bx to r/o graft vs host disease which could dictate therapy. Full discussion w Dr Rogers and GI staff and [employer]. Will proceed as pt and staff think this test will help dictate pts further care. Informed Consent: The patient's anesthetic plan and its attendant risks and benefits were discussed with the patient/family/POA. Questions were solicited and answers provided to the satisfaction of the patient/family/POA.
--- NOTE | 2025-02-10 15:28 | WPDANESEPPF ---
Anes - Initial Pre Proc Eval Procedure: Operation Date: 02/10/25 14:30 Proposed Procedures p Esophagogastroduodenoscopy - Gianfranco Rogers MD Date/Time: 02/10/25 15:28 Surgeon: Alex Sutherland MD Pre Op Diagnosis: Acute on chronic respiratory failure Patient Data Age: 59 Gender: M Height: 1.8 m Weight: 57.9 kg Last Vital Signs Temp 35.9 C L 02/10/25 14:15 Pulse 100 02/10/25 14:15 Resp 24 H 02/10/25 14:15 BP 137/104 H 02/10/25 14:15 Pulse Ox 100 02/10/25 14:15 O2 Del Method Room Air 02/10/25 14:15 O2 Flow Rate 4 02/10/25 08:18 FiO2 36 02/07/25 14:17 Allergies Allergy/AdvReac Type Severity Reaction Status Date / Time adhesive tape AdvReac Unknown PAPER Verified 02/03/25 17:34 TAPE,REDNESS AND IRRITATION Home Medications ?Medication ?Instructions ?Recorded ?Confirmed ?Type rivaroxaban 20 mg tablet (Xarelto) 20 mg PO QAM 02/06/23 02/04/25 History acyclovir 400 mg tablet 400 mg PO TID #90 tabs 01/28/24 02/04/25 Rx clopidogrel 75 mg tablet 75 mg PO DAILY #90 tabs 01/28/24 02/04/25 Rx montelukast 10 mg tablet 10 mg PO HS #30 tabs 01/28/24 02/04/25 Rx (Singulair) mycophenolate mofetil 500 mg tablet 1,000 mg (2 x 500 mg) PO Q12H #10 01/28/24 02/04/25 Rx tabs tacrolimus 0.5 mg capsule, 0.5 mg PO EVERY OTHER DAY #30 caps 01/28/24 02/04/25 Rx immediate-release (Prograf) albuterol sulfate 90 mcg/actuation 1 puff inhalation Q4-6H PRN 10/23/24 02/04/25 History aerosol inhaler Shortness Of Breath Or Wheezing ondansetron 4 mg disintegrating 4 mg PO Q8H PRN Nausea And Vomiting 10/23/24 02/04/25 History tablet pantoprazole 40 mg tablet,delayed 40 mg PO Q12H 10/23/24 02/04/25 History release clofazimine 50 mg capsule 100 mg PO DAILY 11/25/24 02/04/25 History ethambutol 400 mg tablet 1,200 mg PO DAILY 11/25/24 02/04/25 History isavuconazonium sulfate 186 mg 372 mg PO DAILY 11/25/24 02/04/25 History capsule (Cresemba) albuterol sulfate 2.5 mg/3 mL See Rx Instructions .Route 01/27/25 02/04/25 Rx (0.083 %) solution for nebulization .COMPLEX #180 mL azithromycin 250 mg tablet 250 mg PO DAILY 02/04/25 02/04/25 History fluticasone fur. 200 mcg-umeclid 1 inh inhalation DAILY 02/04/25 02/04/25 History 62.5 mcg-vilant 25 mcg inhalat.powder (Trelegy Ellipta) gabapentin 300 mg capsule 300 mg PO QID 02/04/25 02/04/25 History Laboratory Tests 02/09/25 02/09/25 02/10/25 16:59 20:58 07:41 POC Capillary Glucose 159 H mg/dl 183 H mg/dl 102 mg/dl (65-105) (65-105) (65-105) 02/10/25 02/10/25 11:46 14:24 POC Capillary Glucose 129 H mg/dl 101 mg/dl (65-105) (65-105) Patient hx anesthesia problems: none Family hx anesthesia problems: none Results Review: All pre-operative results and documents have been reviewed as part of the pre-operative evaluation. [facility] Past Medical History Medical History Type 2 diabetes mellitus Chronic obstructive pulmonary disease Systolic congestive heart failure Pancreatitis Non-tuberculous mycobacterial pneumonia MSSA bacteremia Osteopenia Pseudomonas pneumonia Mycobacterium avium complex Chronic psrnp-qqhdud-qxtg disease Chronic respiratory failure with hypoxia, on home oxygen therapy Coronary artery disease Pill esophagitis ST elevation (STEMI) myocardial infarction (12/30/22) Chronic anticoagulation Immunocompromised patient patient on anti rejection medications Positive nasal culture for methicillin resistant Staphylococcus aureus Deep venous thrombosis Chronic obstructive pulmonary disease Sciatica Eczema Anxiety Depression Peyronie's disease Emphysema/COPD Acute myeloid leukemia (2008) status post hematopoietic stem cell transplantation with resultant chronic jrcsq-njjbqy-hefl disease. Peripheral neuropathy Pulmonary emboli Hyperlipidemia Surgical History Surgical History History of allogeneic hematopoietic stem cell transplant History of bone marrow transplant (2008) History of cataract extraction with lens replacement History of heart artery stent (12/30/22) 100% occlusion mid RCA s/p drug-eluting stent, left coronary system with dnaz-wb-dzxwfnuh disease History of orthopedic surgery Left tibia liz placement Family History Family History Mother Acute myocardial infarction, Onset Age: 42 Father COPD (chronic obstructive pulmonary disease) Diabetes mellitus Alcohol abuse Social History Social History Social History: Surrogate medical decision maker: Lissy Kaiser, friend/roommate. Code status: Full code. Years smoked: 44 Smoking status: Light tobacco smoker Tobacco type: cigarettes Smoking end date: 08/07/22 Additional smoking assessment comments: on nicotine patches, states he is currently on patches Alcohol intake: never Substance use: never Substance use type: does not use Do You Feel Safe in your Home?: Yes Lack of Transportation: No Lack of Food: Never True Current Housing: I Have Housing Concerned About Future Housing: No Difficulty Paying Gas/Electric Bills: No Difficulty Paying for Meds: No Currently Unemployed: No Education: High School Diploma/GED Difficulty w/ Childcare or Family Care: No Living arrangements: with friend(s) Additional living arrangements comments: He lives with his roommate in [place]. Occupation/Education: unemployed Spiritual care concerns: No Agree to blood products: Yes Anes - Eval Final PreProcedure Day of Procedure 02/10/25 15:28 Patient weight: cachectic Heart: regular rate and rhythm Lungs: clear to auscultation and rhonchi Airway: Mallampati scale class II Neurological: alert and oriented Last oral intake: >/= 8 hours ASA classification: IV Emergent: no Anesthetic plan: proceed Anesthesia type and monitoring: general GIVS and standard monitoring Results Review: All pre-operative results and documents have been reviewed as part of the pre-operative evaluation. Informed Consent: The patient's anesthetic plan and its attendant risks and benefits were discussed with the patient/family/POA. Questions were solicited and answers provided to the satisfaction of the patient/family/POA.
[2025-02-10] MEDS: BENZOCAINE (*SP) 60 ML SPRAY CAN (HURRICAINE) 1 SPRAY MUCOUS MEM (15:34)
[2025-02-10 16:01] LABS: Glucose Point of Care 114 mg/dl (65-105)
--- NOTE | 2025-02-10 16:06 | P.PNGI_ITS ---
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 Although pending biopsies may offer additional diagnostic support, the assessment is largely based on clinical and endoscopic criteria. While systemic corticosteroids are the preferred treatment, they are relatively contraindicated in this case due to the patient's active pneumonia and chronic non-tuberculous mycobacterial infection. Therefore, budesonide slurry 2 mg orally twice daily is a recommended alternative. No critical esophageal stenosis requiring balloon or bougie dilation was identified; however, medical therapy is crucial for improving the patient's dysphagia. the dose should be adjusted according to clinical response, and we can follow him in our clinic as an outpatient. 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 Objective Data Vital Signs Vital Signs: Vital Signs - 24 hr 02/09/25 19:38 02/09/25 19:38 02/09/25 19:45 Temperature Pulse Rate 88 88 90 Respiratory Rate 20 20 20 Blood Pressure Pulse Oximetry 100 Oxygen Delivery Nasal Cannula Oxygen Flow Rate 4 02/09/25 20:00 02/09/25 21:59 02/10/25 01:52 Temperature 98 F Pulse Rate 89 90 Respiratory Rate 20 18 Blood Pressure 109/60 Pulse Oximetry 100 100 Oxygen Delivery Nasal Cannula Oxygen Flow Rate 4 02/10/25 02:05 02/10/25 05:22 02/10/25 08:00 Temperature 98.7 F Pulse Rate 94 82 86 Respiratory Rate 18 20 20 Blood Pressure 105/54 L Pulse Oximetry 100 Oxygen Delivery Oxygen Flow Rate 02/10/25 08:02 02/10/25 08:11 02/10/25 08:18 Temperature Pulse Rate 97 Respiratory Rate 24 H 24 H Blood Pressure Pulse Oximetry 97 97 Oxygen Delivery Nasal Cannula Nasal Cannula Oxygen Flow Rate 4 4 02/10/25 13:50 02/10/25 13:57 02/10/25 14:15 Temperature 96.7 F L Pulse Rate 97 100 Respiratory Rate 20 20 24 H Blood Pressure 137/104 H Pulse Oximetry 100 Oxygen Delivery Room Air Oxygen Flow Rate 02/10/25 15:49 02/10/25 15:59 Temperature Pulse Rate 95 92 Respiratory Rate 19 20 Blood Pressure 89/57 L 110/66 Pulse Oximetry 100 100 Oxygen Delivery Simple Face Mask Simple Face Mask Oxygen Flow Rate 6 6 Intake/Output Intake/Output: Intake & Output 02/07/25 02/08/25 02/09/25 02/10/25 23:59 23:59 23:59 23:59 Intake Total 1330 1200.0 2688.8 1573.8 Output Total 2100 1300 1950 1250 Balance -770 -100.0 738.8 323.8 Meds/Results Medications: Active Medications Generic Name Dose Route Start Last Admin Trade Name Freq PRN Reason Stop Dose Admin Acetaminophen 650 mg 02/04/25 01:51 02/10/25 02:26 Acetaminophen 325 Mg Tablet PO 650 mg Q6H PRN Administration Mild Pain (1-3) or Fever Acyclovir 400 mg 02/04/25 09:00 02/10/25 13:23 Acyclovir 400 Mg Tablet PO Not Given TID ROSA MARIA Azithromycin 500 mg 02/09/25 09:00 02/10/25 09:20 Azithromycin 250 Mg Tablet PO 500 mg DAILY ROSA MARIA Administration Clopidogrel Bisulfate 75 mg 02/04/25 09:00 02/10/25 09:31 Clopidogrel Bisulfate 75 Mg Tablet PO Not Given DAILY ROSA MARIA Dextrose 12.5 gm 02/04/25 01:51 Dextrose 50% 25 Gm/50 Ml Syringe IV PUSH PRN PRN Hypoglycemia Protocol Ethambutol HCl 800 mg 02/04/25 09:00 02/10/25 09:24 Ethambutol Hcl 400 Mg Tablet PO 800 mg DAILY ROSA MARIA Administration Fluticasone/Umeclidinium/Vilanterol 1 puff 02/04/25 08:00 02/10/25 07:58 Fluticasone/Umeclidin/Vilanter 200-62.5-25 Mcg Ellipta INHALATION 1 puff DAILYRT ROSA MARIA Administration Gabapentin 400 mg 02/06/25 09:00 02/10/25 13:23 Gabapentin 400 Mg Capsule PO Not Given QID ROSA MARIA Glucagon 1 mg 02/04/25 01:51 Glucagon For Inj 1 Mg Vial IM PRN PRN Hypoglycemia Protocol Glucose 15 gm 02/04/25 01:51 Glucose Oral Gel 15 Gm Of Glucse In 37.5 Gm Tube PO PRN PRN Hypoglycemia Protocol Guaifenesin 600 mg 02/04/25 09:00 02/10/25 09:25 Guaifenesin 12 Hr 600 Mg Tabcr PO 600 mg Q12HR ROSA MARIA Administration Dextrose 1,000 mls @ 100 mls/hr 02/04/25 01:51 Dextrose 5% 1,000 Ml IVPB PRN PRN Hypoglycemia Protocol Sodium Chloride 1,000 mls @ 75 mls/hr 02/07/25 23:50 02/10/25 13:57 Normal Saline Iv IV CONT 0 mls/hr .[id number] ROSA MARIA Infusion Lactated Ringer's 1,000 mls @ 150 mls/hr 02/10/25 14:15 02/10/25 15:44 Lr - Lactated Ringers Iv IV CONT 150 mls/hr .[id number] ROSA MARIA Infusion Insulin Aspart 2 - 5 units 02/04/25 08:00 02/10/25 12:03 Insulin Aspart (*Bkc) 100 Units/Ml SUB-Q Not Given TIDWM ROSA MARIA Protocol Insulin Aspart 1 - 2 units 02/04/25 21:00 02/09/25 21:17 Insulin Aspart (*Bkc) 100 Units/Ml SUB-Q Not Given HS ROSA MARIA Protocol Levalbuterol HCl 1.25 mg 02/08/25 08:00 02/10/25 13:49 Levalbuterol Neb 1.25 Mg/3 Ml INHALATION 1.25 mg Q6HRT ROSA MARIA Administration Melatonin 5 mg 02/04/25 23:28 02/08/25 23:13 Melatonin 5 Mg Tablet PO 5 mg HS PRN Administration Sleep Miscellaneous Information 0 each 02/04/25 06:45 02/06/25 08:39 Clofazimine 50 Mg Capsule- Nonformulary. Please Obtain A Home Supply If Possible. XX 03/06/25 06:44 Not Given CLARIFY ROSA MARIA Montelukast Sodium 10 mg 02/04/25 21:00 02/09/25 21:11 Montelukast Sodium 10 Mg Tablet PO 10 mg HS ROSA MARIA Administration Mycophenolate Mofetil 1,000 mg 02/04/25 09:00 02/10/25 09:26 Mycophenolate Mofetil 250 Mg Capsule PO 1,000 mg Q12HR ROSA MARIA Administration Non-Formulary Medication 100 mg 02/04/25 09:00 Clofazimine PO 03/06/25 08:59 DAILY ROSA MARIA Ondansetron HCl 4 mg 02/06/25 16:09 Ondansetron Inj 4 Mg/2 Ml Vial IV PUSH Q6H PRN Nausea And Vomiting Pantoprazole Sodium 40 mg 02/04/25 09:00 02/10/25 09:21 Pantoprazole 40 Mg Tablet PO 40 mg BID ROSA MARIA Administration Rivaroxaban 20 mg 02/04/25 17:00 02/09/25 16:54 Rivaroxaban 20 Mg Tablet PO 20 mg DAILY@1700 ROSA MARIA Administration Tacrolimus 0.5 mg 02/05/25 09:00 02/09/25 08:54 Tacrolimus 0.5 Mg Capsule PO 0.5 mg Q48H ROSA MARIA Administration Tamsulosin HCl 0.4 mg 02/09/25 09:00 02/10/25 09:24 Tamsulosin Hcl 0.4 Mg Capsule PO 0.4 mg QAM ROSA MARIA Administration Radiology Results: ITS Impressions Chest CTA 02/03/25 23:18 IMPRESSION: No pulmonary embolus. No thoracic aortic dissection. Redemonstration of chronic panlobular emphysematous change with right apical consolidation with cavitary change and pleural-based scarring within the left upper lobe with cavitary change. Chest X-Ray 02/08/25 05:20 IMPRESSION: 1. Chronic airspace opacities in the upper lobes and chronic nodule in lateral right midlung zone, consistent with chronic pneumonia. 2. Emphysema. Labs Labs: Laboratory Results - last 24 hr 02/09/25 02/09/25 02/10/25 16:59 20:58 07:41 POC Capillary Glucose 159 H 183 H 102 02/10/25 02/10/25 02/10/25 11:46 14:24 15:58 POC Capillary Glucose 129 H 101 114 H
--- NOTE | 2025-02-10 16:33 | WPDGIPROGNO ---
Progress Note: A&P Assessment and Plan (1) Dysphagia: Code(s): R13.10 - Dysphagia, unspecified Status: Acute Plan Budesonide slurry is not available in the hospital. I will prescribe it to his pharmacy and if is not approved by his insurance company, he should call our office to obtain prior authorization. Subjective Date/time seen: 02/10/25 16:33 Objective Data Vital Signs Vital Signs: Vital Signs - 24 hr 02/09/25 19:38 02/09/25 19:38 02/09/25 19:45 Temperature Pulse Rate 88 88 90 Respiratory Rate 20 20 20 Blood Pressure Pulse Oximetry 100 Oxygen Delivery Nasal Cannula Oxygen Flow Rate 4 02/09/25 20:00 02/09/25 21:59 02/10/25 01:52 Temperature 98 F Pulse Rate 89 90 Respiratory Rate 20 18 Blood Pressure 109/60 Pulse Oximetry 100 100 Oxygen Delivery Nasal Cannula Oxygen Flow Rate 4 02/10/25 02:05 02/10/25 05:22 02/10/25 08:00 Temperature 98.7 F Pulse Rate 94 82 86 Respiratory Rate 18 20 20 Blood Pressure 105/54 L Pulse Oximetry 100 Oxygen Delivery Oxygen Flow Rate 02/10/25 08:02 02/10/25 08:11 02/10/25 08:18 Temperature Pulse Rate 97 Respiratory Rate 24 H 24 H Blood Pressure Pulse Oximetry 97 97 Oxygen Delivery Nasal Cannula Nasal Cannula Oxygen Flow Rate 4 4 02/10/25 13:50 02/10/25 13:57 02/10/25 14:15 Temperature 96.7 F L Pulse Rate 97 100 Respiratory Rate 20 20 24 H Blood Pressure 137/104 H Pulse Oximetry 100 Oxygen Delivery Room Air Oxygen Flow Rate 02/10/25 15:49 02/10/25 15:59 02/10/25 16:09 Temperature Pulse Rate 95 92 94 Respiratory Rate 19 20 20 Blood Pressure 89/57 L 110/66 102/67 Pulse Oximetry 100 100 100 Oxygen Delivery Simple Face Mask Simple Face Mask Nasal Cannula Oxygen Flow Rate 6 6 4 Intake/Output Intake/Output: Intake & Output 02/07/25 02/08/25 02/09/25 02/10/25 23:59 23:59 23:59 23:59 Intake Total 1330 1200.0 2688.8 2123.8 Output Total 2100 1300 1950 1250 Balance -770 -100.0 738.8 873.8 Meds/Results Medications: Active Medications Generic Name Dose Route Start Last Admin Trade Name Freq PRN Reason Stop Dose Admin Acetaminophen 650 mg 02/04/25 01:51 02/10/25 02:26 Acetaminophen 325 Mg Tablet PO 650 mg Q6H PRN Administration Mild Pain (1-3) or Fever Acyclovir 400 mg 02/04/25 09:00 02/10/25 13:23 Acyclovir 400 Mg Tablet PO Not Given TID ROSA MARIA Azithromycin 500 mg 02/09/25 09:00 02/10/25 09:20 Azithromycin 250 Mg Tablet PO 500 mg DAILY ROSA MARIA Administration Clopidogrel Bisulfate 75 mg 02/04/25 09:00 02/10/25 09:31 Clopidogrel Bisulfate 75 Mg Tablet PO Not Given DAILY ROSA MARIA Dextrose 12.5 gm 02/04/25 01:51 Dextrose 50% 25 Gm/50 Ml Syringe IV PUSH PRN PRN Hypoglycemia Protocol Ethambutol HCl 800 mg 02/04/25 09:00 02/10/25 09:24 Ethambutol Hcl 400 Mg Tablet PO 800 mg DAILY ROSA MARIA Administration Fluticasone/Umeclidinium/Vilanterol 1 puff 02/04/25 08:00 02/10/25 07:58 Fluticasone/Umeclidin/Vilanter 200-62.5-25 Mcg Ellipta INHALATION 1 puff DAILYRT ROSA MARIA Administration Gabapentin 400 mg 02/06/25 09:00 02/10/25 13:23 Gabapentin 400 Mg Capsule PO Not Given QID ROSA MARIA Glucagon 1 mg 02/04/25 01:51 Glucagon For Inj 1 Mg Vial IM PRN PRN Hypoglycemia Protocol Glucose 15 gm 02/04/25 01:51 Glucose Oral Gel 15 Gm Of Glucse In 37.5 Gm Tube PO PRN PRN Hypoglycemia Protocol Guaifenesin 600 mg 02/04/25 09:00 02/10/25 09:25 Guaifenesin 12 Hr 600 Mg Tabcr PO 600 mg Q12HR ROSA MARIA Administration Dextrose 1,000 mls @ 100 mls/hr 02/04/25 01:51 Dextrose 5% 1,000 Ml IVPB PRN PRN Hypoglycemia Protocol Sodium Chloride 1,000 mls @ 75 mls/hr 02/07/25 23:50 02/10/25 13:57 Normal Saline Iv IV CONT 0 mls/hr .[id number] ROSA MARIA Infusion Insulin Aspart 2 - 5 units 02/04/25 08:00 02/10/25 16:20 Insulin Aspart (*Bkc) 100 Units/Ml SUB-Q Not Given TIDWM ROSA MARIA Protocol Insulin Aspart 1 - 2 units 02/04/25 21:00 02/09/25 21:17 Insulin Aspart (*Bkc) 100 Units/Ml SUB-Q Not Given HS ROSA MARIA Protocol Levalbuterol HCl 1.25 mg 02/08/25 08:00 02/10/25 13:49 Levalbuterol Neb 1.25 Mg/3 Ml INHALATION 1.25 mg Q6HRT ROSA MARIA Administration Melatonin 5 mg 02/04/25 23:28 02/08/25 23:13 Melatonin 5 Mg Tablet PO 5 mg HS PRN Administration Sleep Miscellaneous Information 0 each 02/04/25 06:45 02/06/25 08:39 Clofazimine 50 Mg Capsule- Nonformulary. Please Obtain A Home Supply If Possible. XX 03/06/25 06:44 Not Given CLARIFY ROSA MARIA Montelukast Sodium 10 mg 02/04/25 21:00 02/09/25 21:11 Montelukast Sodium 10 Mg Tablet PO 10 mg HS ROSA MARIA Administration Mycophenolate Mofetil 1,000 mg 02/04/25 09:00 02/10/25 09:26 Mycophenolate Mofetil 250 Mg Capsule PO 1,000 mg Q12HR ROSA MARIA Administration Non-Formulary Medication 100 mg 02/04/25 09:00 Clofazimine PO 03/06/25 08:59 DAILY ROSA MARIA Ondansetron HCl 4 mg 02/06/25 16:09 Ondansetron Inj 4 Mg/2 Ml Vial IV PUSH Q6H PRN Nausea And Vomiting Pantoprazole Sodium 40 mg 02/04/25 09:00 02/10/25 09:21 Pantoprazole 40 Mg Tablet PO 40 mg BID ROSA MARIA Administration Rivaroxaban 20 mg 02/04/25 17:00 02/09/25 16:54 Rivaroxaban 20 Mg Tablet PO 20 mg DAILY@1700 ROSA MARIA Administration Tacrolimus 0.5 mg 02/05/25 09:00 02/09/25 08:54 Tacrolimus 0.5 Mg Capsule PO 0.5 mg Q48H ROSA MARIA Administration Tamsulosin HCl 0.4 mg 02/09/25 09:00 02/10/25 09:24 Tamsulosin Hcl 0.4 Mg Capsule PO 0.4 mg QAM ROSA MARIA Administration Radiology Results: ITS Impressions Chest CTA 02/03/25 23:18 IMPRESSION: No pulmonary embolus. No thoracic aortic dissection. Redemonstration of chronic panlobular emphysematous change with right apical consolidation with cavitary change and pleural-based scarring within the left upper lobe with cavitary change. Chest X-Ray 02/08/25 05:20 IMPRESSION: 1. Chronic airspace opacities in the upper lobes and chronic nodule in lateral right midlung zone, consistent with chronic pneumonia. 2. Emphysema. Labs Labs: Laboratory Results - last 24 hr 02/09/25 02/09/25 02/10/25 16:59 20:58 07:41 POC Capillary Glucose 159 H 183 H 102 02/10/25 02/10/25 02/10/25 11:46 14:24 15:58 POC Capillary Glucose 129 H 101 114 H
--- NOTE | 2025-02-10 16:40 | P.PNIM_ITS ---
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 Consulted GI Acute on chronic respiratory failure Continue titrating oxygen. COPD exacerbation Continue bronchodilators, antibiotics, no steroid due to immunosuppressed status a history of atypical mycobacteria infection. repeat CXR in the am Pulmonology following Monitor Chronic sxdul-ypdohq-dmwv disease Continue home medications. History of Mycobacterium avium complex Continue ethambutol CHF, systolic Continue medications. DVT prophylaxis on Xarelto. 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 Exam Narrative: General: Thin, chronically ill-appearing male in the semi-Grider position in bed in no acute distress. Weight: 65.9 kg. BMI: 20.8. HEENT: PERRL, EOMI. Sclera anicteric. Oral mucosa is tacky. Neck: Supple. No JVD or lymphadenopathy. Respiratory: Air entry is better. Scattered expiratory wheezing. Cardiovascular: Regular rate and rhythm with S1-S2. Gastrointestinal: Abdomen is soft, flat, nontender, and nondistended with positive bowel sounds. Skin: Warm and dry. No rash or lesions on limited exam. Extremities: No cyanosis, clubbing, or edema. Radial and pedal pulses intact. No palpable knots or cords. Neurological: Alert. Cranial nerves 2-12 are grossly intact. No gross focal deficits to casual conversation. Psychiatric: Pleasant and cooperative with appropriate mood and affect. He is in good spirits. Objective Data Vital Signs Vital Signs: Vital Signs - 24 hr 02/09/25 19:38 02/09/25 19:38 02/09/25 19:45 Temperature Pulse Rate 88 88 90 Respiratory Rate 20 20 20 Blood Pressure Pulse Oximetry 100 Oxygen Delivery Nasal Cannula Oxygen Flow Rate 4 02/09/25 20:00 02/09/25 21:59 02/10/25 01:52 Temperature 98 F Pulse Rate 89 90 Respiratory Rate 20 18 Blood Pressure 109/60 Pulse Oximetry 100 100 Oxygen Delivery Nasal Cannula Oxygen Flow Rate 4 02/10/25 02:05 02/10/25 05:22 02/10/25 08:00 Temperature 98.7 F Pulse Rate 94 82 86 Respiratory Rate 18 20 20 Blood Pressure 105/54 L Pulse Oximetry 100 Oxygen Delivery Oxygen Flow Rate 02/10/25 08:02 02/10/25 08:11 02/10/25 08:18 Temperature Pulse Rate 97 Respiratory Rate 24 H 24 H Blood Pressure Pulse Oximetry 97 97 Oxygen Delivery Nasal Cannula Nasal Cannula Oxygen Flow Rate 4 4 02/10/25 13:50 02/10/25 13:57 02/10/25 14:15 Temperature 96.7 F L Pulse Rate 97 100 Respiratory Rate 20 20 24 H Blood Pressure 137/104 H Pulse Oximetry 100 Oxygen Delivery Room Air Oxygen Flow Rate 02/10/25 15:49 02/10/25 15:59 02/10/25 16:09 Temperature Pulse Rate 95 92 94 Respiratory Rate 19 20 20 Blood Pressure 89/57 L 110/66 102/67 Pulse Oximetry 100 100 100 Oxygen Delivery Simple Face Mask Simple Face Mask Nasal Cannula Oxygen Flow Rate 6 6 4 Intake/Output Intake/Output: Intake & Output 02/07/25 02/08/25 02/09/25 02/10/25 23:59 23:59 23:59 23:59 Intake Total 1330 1200.0 2688.8 2123.8 Output Total 2100 1300 1950 1250 Balance -770 -100.0 738.8 873.8 Meds/Results Medications: Active Medications Generic Name Dose Route Start Last Admin Trade Name Freq PRN Reason Stop Dose Admin Acetaminophen 650 mg 02/04/25 01:51 02/10/25 02:26 Acetaminophen 325 Mg Tablet PO 650 mg Q6H PRN Administration Mild Pain (1-3) or Fever Acyclovir 400 mg 02/04/25 09:00 02/10/25 13:23 Acyclovir 400 Mg Tablet PO Not Given TID ROSA MARIA Azithromycin 500 mg 02/09/25 09:00 02/10/25 09:20 Azithromycin 250 Mg Tablet PO 500 mg DAILY ROSA MARIA Administration Clopidogrel Bisulfate 75 mg 02/04/25 09:00 02/10/25 09:31 Clopidogrel Bisulfate 75 Mg Tablet PO Not Given DAILY ROSA MARIA Dextrose 12.5 gm 02/04/25 01:51 Dextrose 50% 25 Gm/50 Ml Syringe IV PUSH PRN PRN Hypoglycemia Protocol Ethambutol HCl 800 mg 02/04/25 09:00 02/10/25 09:24 Ethambutol Hcl 400 Mg Tablet PO 800 mg DAILY ROSA MARIA Administration Fluticasone/Umeclidinium/Vilanterol 1 puff 02/04/25 08:00 02/10/25 07:58 Fluticasone/Umeclidin/Vilanter 200-62.5-25 Mcg Ellipta INHALATION 1 puff DAILYRT ROSA MARIA Administration Gabapentin 400 mg 02/06/25 09:00 02/10/25 13:23 Gabapentin 400 Mg Capsule PO Not Given QID ROSA MARIA Glucagon 1 mg 02/04/25 01:51 Glucagon For Inj 1 Mg Vial IM PRN PRN Hypoglycemia Protocol Glucose 15 gm 02/04/25 01:51 Glucose Oral Gel 15 Gm Of Glucse In 37.5 Gm Tube PO PRN PRN Hypoglycemia Protocol Guaifenesin 600 mg 02/04/25 09:00 02/10/25 09:25 Guaifenesin 12 Hr 600 Mg Tabcr PO 600 mg Q12HR ROSA MARIA Administration Dextrose 1,000 mls @ 100 mls/hr 02/04/25 01:51 Dextrose 5% 1,000 Ml IVPB PRN PRN Hypoglycemia Protocol Sodium Chloride 1,000 mls @ 75 mls/hr 02/07/25 23:50 02/10/25 13:57 Normal Saline Iv IV CONT 0 mls/hr .[id number] ROSA MARIA Infusion Insulin Aspart 2 - 5 units 02/04/25 08:00 02/10/25 16:20 Insulin Aspart (*Bkc) 100 Units/Ml SUB-Q Not Given TIDWM ROSA MARIA Protocol Insulin Aspart 1 - 2 units 02/04/25 21:00 02/09/25 21:17 Insulin Aspart (*Bkc) 100 Units/Ml SUB-Q Not Given HS ROSA MARIA Protocol Levalbuterol HCl 1.25 mg 02/08/25 08:00 02/10/25 13:49 Levalbuterol Neb 1.25 Mg/3 Ml INHALATION 1.25 mg Q6HRT ROSA MARIA Administration Melatonin 5 mg 02/04/25 23:28 02/08/25 23:13 Melatonin 5 Mg Tablet PO 5 mg HS PRN Administration Sleep Miscellaneous Information 0 each 02/04/25 06:45 02/06/25 08:39 Clofazimine 50 Mg Capsule- Nonformulary. Please Obtain A Home Supply If Possible. XX 03/06/25 06:44 Not Given CLARIFY ROSA MARIA Montelukast Sodium 10 mg 02/04/25 21:00 02/09/25 21:11 Montelukast Sodium 10 Mg Tablet PO 10 mg HS ROSA MARIA Administration Mycophenolate Mofetil 1,000 mg 02/04/25 09:00 02/10/25 09:26 Mycophenolate Mofetil 250 Mg Capsule PO 1,000 mg Q12HR ROSA MARIA Administration Non-Formulary Medication 100 mg 02/04/25 09:00 Clofazimine PO 03/06/25 08:59 DAILY ROSA MARIA Ondansetron HCl 4 mg 02/06/25 16:09 Ondansetron Inj 4 Mg/2 Ml Vial IV PUSH Q6H PRN Nausea And Vomiting Pantoprazole Sodium 40 mg 02/04/25 09:00 02/10/25 09:21 Pantoprazole 40 Mg Tablet PO 40 mg BID ROSA MARIA Administration Rivaroxaban 20 mg 02/04/25 17:00 02/09/25 16:54 Rivaroxaban 20 Mg Tablet PO 20 mg DAILY@1700 ROSA MARIA Administration Tacrolimus 0.5 mg 02/05/25 09:00 02/09/25 08:54 Tacrolimus 0.5 Mg Capsule PO 0.5 mg Q48H ROSA MARIA Administration Tamsulosin HCl 0.4 mg 02/09/25 09:00 02/10/25 09:24 Tamsulosin Hcl 0.4 Mg Capsule PO 0.4 mg QAM ROSA MARIA Administration Radiology Results: ITS Impressions Chest CTA 02/03/25 23:18 IMPRESSION: No pulmonary embolus. No thoracic aortic dissection. Redemonstration of chronic panlobular emphysematous change with right apical consolidation with cavitary change and pleural-based scarring within the left upper lobe with cavitary change. Chest X-Ray 02/08/25 05:20 IMPRESSION: 1. Chronic airspace opacities in the upper lobes and chronic nodule in lateral right midlung zone, consistent with chronic pneumonia. 2. Emphysema. Labs Labs: Laboratory Results - last 24 hr 02/09/25 02/09/25 02/10/25 16:59 20:58 07:41 POC Capillary Glucose 159 H 183 H 102 02/10/25 02/10/25 02/10/25 11:46 14:24 15:58 POC Capillary Glucose 129 H 101 114 H Quality VTE Prophylaxis VTE prophylaxis: pharmacologic ordered (On rivaroxaban) Hospitalist MIPS Advance Care Plan I have confirmed that the patient's Advanced Care Plan is present, code status is documented, or surrogate decision maker is listed in patient medical record.: Yes Medication Reconciliation I have utilized all available resources to obtain, update and review the patients current medications (includes all prescriptions, OTC, herbals, cannabis, and nutritional supplements).: Yes
[2025-02-10 16:44] LABS: Glucose Point of Care 123 mg/dl (65-105)
[2025-02-10 21:57] LABS: Glucose Point of Care 166 mg/dl (65-105)
[2025-02-10] MEDS: MELATONIN 5 MG TABLET PO (22:23)
[2025-02-10] MEDS: MONTELUKAST SODIUM 10 MG TABLET PO (22:23)
[2025-02-11] VITALS (7 sets, daily range): BP systolic 105; BP diastolic 64; PULSE 81–92; RESP 20; TEMP 36.2; O2SAT 95–100
[2025-02-11] MEDS: HYDROcodone/acetaminophen (*CRX) 5-325 MG TABLET 1 TAB PO ×2 (00:25→09:00)
[2025-02-11] MEDS: LEVALBUTEROL NEB 1.25 MG/3 ML INHALATION ×3 (02:09→14:54)
[2025-02-11 08:20] LABS: Glucose Point of Care 81 mg/dl (65-105)
[2025-02-11] MEDS: FLUTICASONE/UMECLIDIN/VILANTER 200-62.5-25 MCG ELLIPTA 1 PUFF INHALATION (08:21)
[2025-02-11] MEDS: CLOPIDOGREL BISULFATE 75 MG TABLET PO (08:49)
[2025-02-11] MEDS: ACYCLOVIR 400 MG TABLET PO ×2 (08:49→12:46)
[2025-02-11] MEDS: mycophenolate mofetiL 250 MG CAPSULE 1000 MG PO (08:49)
[2025-02-11] MEDS: ETHAMBUTOL HCL 400 MG TABLET 800 MG PO (08:49)
[2025-02-11] MEDS: AZITHROMYCIN 250 MG TABLET 500 MG PO (08:50)
[2025-02-11] MEDS: GABAPENTIN 400 MG CAPSULE PO ×2 (08:50→12:46)
[2025-02-11] MEDS: guaiFENesin 12 HR 600 MG TABCR PO (08:50)
[2025-02-11] MEDS: TACROLIMUS 0.5 MG CAPSULE PO (08:50)
[2025-02-11] MEDS: PANTOPRAZOLE 40 MG TABLET PO (08:50)
[2025-02-11] MEDS: TAMSULOSIN HCL 0.4 MG CAPSULE PO (08:51)
[2025-02-11 09:20] LABS: Hematocrit 27.8 % (42.0-52.0); Hemoglobin 9.3 g/dL (14.0-18.0); Mean Corpuscular HGB Conc 33.5 g/dl (32-36); Mean Corpuscular Hemoglobin 35.1 pg (26-34); Mean Corpuscular Volume 104.9 fl (80-100); Mean Platelet Volume 9.9 fl (7.4-10.4); Platelet Count Result 286 k/mm3 (150-375); Red Blood Count 2.65 M/mm3 (4.6-6.20); Red Cell Distribution Width 18.6 % (11.5-14.5); White Blood Count 9.6 K/mm3 (4.5-10.0)
[2025-02-11 09:35] LABS: Alanine Aminotransferase 30 U/L (6-50); Alkaline Phosphatase 146 U/L (38-126); Anion Gap 5 mmol/L (4-12); Aspartate Amino Transferase 38 U/L (17-59); Bilirubin,Total 0.4 mg/dL (0.2-1.3); Blood Urea Nitrogen 11 mg/dL (9-20); Calcium 8.5 mg/dL (8.4-10.2); Carbon Dioxide 32 mmol/L (22-30); Chloride 101 mmol/L (98-107); Estimated CRCL calculation 105 ml/min; Estimated Glomerular Filt Rate > 60; Glucose 90 mg/dL (65-110); Potassium 4.3 mmol/L (3.4-5.0); Sodium 138 mmol/L (137-145)
[2025-02-11] MEDS: SODIUM CHLORIDE 0.9% IV 1,000 ML 75 ML IV CONT (10:13)
[2025-02-11 11:40] LABS: Glucose Point of Care 133 mg/dl (65-105)
--- NOTE | 2025-02-11 12:16 | P.DS_ITS ---
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 Consulted GI Acute on chronic respiratory failure Continue titrating oxygen. COPD exacerbation Continue bronchodilators, antibiotics, no steroid due to immunosuppressed status a history of atypical mycobacteria infection. CXR reviewed Pulmonology following Monitor Chronic gnhzi-rtejdh-zejl disease Continue home medications. History of Mycobacterium avium complex Continue ethambutol CHF, systolic Continue medications. DVT prophylaxis on Xarelto. 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 The patient provides the following history. He is chronically short of breath at baseline however reports worsening dyspnea on lesser and lesser exertion over the past several days. He has a productive cough which is unchanged. He has been using his inhalers and nebulizers at home without much benefit. He denies fever, chills, sweats, chest pain, pleuritic pain, nausea, vomiting, edema, and calf pain. He has no known sick contacts. EMS administered a nebulizer treatment, magnesium, and Decadron in route to the hospital. In the ED: Vital signs on arrival include a temperature of 100.3? F, blood pressure 108/56, pulse 125, respiratory rate 30, SpO2 90% on 6 L. labs were significant for a hemoglobin of 13.5, MCV 101.3, sodium 132, potassium 5.3, carbon dioxide 31, glucose 150, proBNP 2890. Respiratory panel was negative. Chest CTA was negative for pulmonary embolism and dissection and showed chronic findings. He received another nebulizer treatment and is being admitted in this setting for further treatment. I assumed care on 02/08-02/11: The patient had chest tightness intermittently and cardiac work up was negative. Cardiology reported Chest tightness commonly associated with COPD. Reviewed EKG showing borderline T wave abnormality.Check troponin. If troponin negative, no further cardiac workup is needed. May need lexiscan stress test as outpatient . As mentioned above his cardiac workup was negative. Patient continues to have irritation and chest tightness while eating. Unable to swallow associated with nausea. Patient underwent EGD 10/26/2024 which shows Pill esophagitis but no evidence of stricture. I consulted GI and discussed with GI who reported patient might have GVHD and recommended upper endoscopy. 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 Although pending biopsies may offer additional diagnostic support, the assessment is largely based on clinical and endoscopic criteria. While systemic corticosteroids are the preferred treatment, they are relatively contraindicated in this case due to the patient's active pneumonia and chronic non-tuberculous mycobacterial infection. Therefore, budesonide slurry 2 mg orally twice daily is a recommended alternative. No critical esophageal stenosis requiring balloon or bougie dilation was identified . Please refer to full EGD report Patient will be discharged with budesonide slurry and close follow up with GI and cardiology and oncology. In regards to MAC patient will continue ethambutol 800 mg p.o. q.d., azithromycin 250 mg p.o. q.d.. Patient will continue antifungals clofazimine 100 mg p.o. q.d., anti rejection drugs Cresemba and tacrolimus. Status at Discharge Cognitive/behavioral status at discharge: Stable Time Spent with Patient Time attestation: Total time spent providing and/or coordinating discharge services:45 minutes Exam Narrative: General: Thin, chronically ill-appearing male in the semi-Grider position in bed in no acute distress. Weight: 65.9 kg. BMI: 20.8. HEENT: PERRL, EOMI. Sclera anicteric. Oral mucosa is tacky. Neck: Supple. No JVD or lymphadenopathy. Respiratory: Air entry is better. Scattered expiratory wheezing. Cardiovascular: Regular rate and rhythm with S1-S2. Gastrointestinal: Abdomen is soft, flat, nontender, and nondistended with positive bowel sounds. Skin: Warm and dry. No rash or lesions on limited exam. Extremities: No cyanosis, clubbing, or edema. Radial and pedal pulses intact. No palpable knots or cords. Neurological: Alert. Cranial nerves 2-12 are grossly intact. No gross focal deficits to casual conversation. Psychiatric: Pleasant and cooperative with appropriate mood and affect. He is in good spirits. DS: Data Data Completed and Pending Pending studies at discharge: Pending at discharge 02/10/25 15:43 Surgical [PTH] Routine Labs on day of discharge: Labs from last 24 hours 02/11/25 02/11/25 02/11/25 11:37 09:14 08:17 WBC 9.6 RBC 2.65 L Hgb 9.3 L Hct 27.8 L MCV 104.9 H MCH 35.1 H MCHC 33.5 RDW 18.6 H Plt Count 286 MPV 9.9 Sodium 138 Potassium 4.3 Chloride 101 Carbon Dioxide 32 H Anion Gap 5 BUN 11 D Creatinine 0.53 L Estim Creat Clear Calc 105 Estimated GFR > 60 Glucose 90 POC Capillary Glucose 133 H 81 Calcium 8.5 Total Bilirubin 0.4 AST 38 ALT 30 Alkaline Phosphatase 146 H Total Protein 7.0 Albumin 3.0 L 02/10/25 02/10/25 02/10/25 20:44 16:37 15:58 WBC RBC Hgb Hct MCV MCH MCHC RDW Plt Count MPV Sodium Potassium Chloride Carbon Dioxide Anion Gap BUN Creatinine Estim Creat Clear Calc Estimated GFR Glucose POC Capillary Glucose 166 H 123 H 114 H Calcium Total Bilirubin AST ALT Alkaline Phosphatase Total Protein Albumin 02/10/25 14:24 WBC RBC Hgb Hct MCV MCH MCHC RDW Plt Count MPV Sodium Potassium Chloride Carbon Dioxide Anion Gap BUN Creatinine Estim Creat Clear Calc Estimated GFR Glucose POC Capillary Glucose 101 Calcium Total Bilirubin AST ALT Alkaline Phosphatase Total Protein Albumin Preliminary micro results at discharge 02/10/25 17:37 Sputum Culture - Preliminary Sputum Imaging Radiologist's impression: ITS Impressions Chest X-Ray 02/03/25 18:28 IMPRESSION: No focal infiltrate or effusion. Chest CTA 02/03/25 23:18 IMPRESSION: No pulmonary embolus. No thoracic aortic dissection. Redemonstration of chronic panlobular emphysematous change with right apical consolidation with cavitary change and pleural-based scarring within the left upper lobe with cavitary change. Chest X-Ray 02/06/25 06:18 Impression: 1: No acute cardiopulmonary disease. Stable chronic changes. Chest X-Ray 02/08/25 05:20 IMPRESSION: 1. Chronic airspace opacities in the upper lobes and chronic nodule in lateral right midlung zone, consistent with chronic pneumonia. 2. Emphysema. Discharge Plan Discharge Attending physician on discharge: Camilo Friedman Consulting providers: Kranthi Fatima; Cal Carranza Discharging Clinician: Camilo Friedman Anticipated Discharge Date/Time: 02/06/25 10:00 Patient Disposition: Home, Self-Care Activity: as tolerated Diet: regular Discharge Instructions: Needs to take budesonide slurry and close follow up with GI and cardiology and oncology. Patient will be discharged with budesonide slurry and needs close follow up with GI and cardiology and oncology. In regards to MAC patient will continue ethambutol 800 mg p.o. q.d., azithromycin 250 mg p.o. q.d.. Patient will continue antifungals clofazimine 100 mg p.o. q.d., anti rejection drugs Cresemba and tacrolimus. Check blood pressure 1 to 2 times a day. Record and bring into your doctor for review. Call your doctor if your blood pressure is greater than 180/110 or less than 90/45. Walk with cane or other assist device. Take precautions to avoid falls. Rise slowly from a lying or sitting position. Pause before standing or walking. Contact your doctor or call 911 and come to the Emergency Room if you have any type of trauma, lightheadedness with standing or other worrisome symptoms. Avoid NSAIDs (ibuprofen, naproxen, Aleve). Tylenol is safe to take. Follow-up with your primary care provider in 1-2 weeks. Please call for appointment. Follow-up with Cardiology, Gastroenterology, Oncology in 2-4 weeks. Please call for an appointment. Thank you for using [facility] for your health care needs. Patient Instructions: Antibiotic Form Patient Language: Danish Stand Alone Forms: General Discharge Information Follow-up/Referrals: Kranthi Fatima MD [Physician] - (F/u with Pulmonology as instructed ) Kirt Lindsay DO [Primary Care Provider] - (F/u with PCP in 3-5 days ) Discharge Medications: New tamsulosin 0.4 mg Capsule 0.4 mg PO QAM Qty: 30 0RF ethambutol 400 mg tablet 800 mg PO DAILY 60 Days Qty: 120 0RF Continued Xarelto 20 mg tablet 20 mg PO QAM Rx Instructions: must administer with evening meal clofazimine 50 mg capsule 100 mg PO DAILY Cresemba 186 mg capsule 372 mg PO DAILY pantoprazole 40 mg tablet,delayed release (DR/EC) 40 mg PO Q12H ondansetron 4 mg tablet,disintegrating 4 mg PO Q8H PRN (Reason: Nausea And Vomiting) albuterol sulfate 90 mcg/actuation HFA aerosol inhaler 1 puff INHALATION Q4-6H PRN (Reason: Shortness Of Breath Or Wheezing) gabapentin 300 mg capsule 300 mg PO QID Rx Instructions: takes at 0900/1300/1700/2100 azithromycin 250 mg tablet 250 mg PO DAILY Trelegy Ellipta 200-62.5-25 mcg blister with device 1 inh inhalation DAILY acyclovir 400 mg tablet 400 mg PO TID Qty: 90 0RF clopidogrel 75 mg tablet 75 mg PO DAILY Qty: 90 0RF montelukast [Singulair] 10 mg tablet 10 mg PO HS Qty: 30 0RF mycophenolate mofetil 500 mg tablet 1,000 mg PO Q12H Qty: 10 0RF Rx Instructions: Please call your Oncology to send prescription for this medication and adjust the dose tacrolimus [Prograf] 0.5 mg capsule 0.5 mg PO EVERY OTHER DAY Qty: 30 0RF albuterol sulfate 2.5 mg /3 mL (0.083 %) solution for nebulization See Rx Instructions .ROUTE .COMPLEX Qty: 180 0RF Dose Instruction: INHALE 1 VIAL VIA NEBULIZER EVERY 6 HOURS NEEDED FOR SHORTNESS OF BREATH Rx Instructions: INHALE 1 VIAL VIA NEBULIZER EVERY 6 HOURS NEEDED FOR SHORTNESS OF BREATH Eohilia 2 mg/10 mL suspension in packet 10 ml PO QAM AND QPM 60 Days Qty: 1200 2RF Discontinued ethambutol 400 mg tablet 1,200 mg PO DAILY Date of admission: 02/04/25 10:34 Primary Care Provider: Kirt Lindsay Admitting Provider: Marcos Sutherland Attending physician on admission: Marcos Sutherland Condition: Stable
== END 2025-02-11 16:35 | disposition home or self-care (01) | DRG 190 ==
LOC: ANHED 21:34 → ANHIMU 02-04 00:36 → ANH2MED 02-05 09:24 → ANHIMU 02-12 15:36
PROVIDERS: Emergency Medicine; Internal Medicine; Internal Medicine Cardiovascular Disease; Internal Medicine Gastroenterology; Physician Assistant; Admitting Provider Internal Medicine; Emergency Provider Physician Assistant; PCP Internal Medicine; Visit Provider General Practice
PROC: 0DJ08ZZ Inspection of Upper Intestinal Tract, Via Natural or Artificial Opening Endoscopic (ICD-10-PCS; principal; 2025-02-10 14:30)
DX: J44.1 Chronic obstructive pulmonary disease with (acute) exacerbation (principal); E43 Unspecified severe protein-calorie malnutrition; J96.21 Acute and chronic respiratory failure with hypoxia; D84.821 Immunodeficiency due to drugs; C92.01 Acute myeloblastic leukemia, in remission; T86.09 Other complications of bone marrow transplant; D89.811 Chronic graft-versus-host disease; Z94.84 Stem cells transplant status; Z94.81 Bone marrow transplant status; A31.0 Pulmonary mycobacterial infection; I50.22 Chronic systolic (congestive) heart failure; E87.1 Hypo-osmolality and hyponatremia; E87.5 Hyperkalemia; I25.10 Atherosclerotic heart disease of native coronary artery without angina pectoris; K20.80 Other esophagitis without bleeding; K22.2 Esophageal obstruction; E78.5 Hyperlipidemia, unspecified; E11.9 Type 2 diabetes mellitus without complications; M85.80 Other specified disorders of bone density and structure, unspecified site; F41.9 Anxiety disorder, unspecified; F32.A Depression, unspecified; Z20.822 Contact with and (suspected) exposure to COVID-19; I25.2 Old myocardial infarction; Z86.711 Personal history of pulmonary embolism; Z86.718 Personal history of other venous thrombosis and embolism; Z79.01 Long term (current) use of 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; Z99.81 Dependence on supplemental oxygen; Z95.5 Presence of coronary angioplasty implant and graft; Z72.0 Tobacco use; Z79.899 Other long term (current) drug therapy
CPT/HCPCS: 36415; 36600; 71045; 71275; 80048; 80053; 82375; 82607; 82746; 82805; 82948; 83050; 83735; 83880; 84484; 85018; 85025; 85027; 85610; 85730; 86738; 87040; 87070; 87186; 87205; 87449; 87637; 87641; 87899; 88305; 88312; 88342; 93005; 94002; 94640; 96361; 96365; 96366; 96367; 96368; 96375; 99291; A9270; G0378; J0456; J0692; J1741; J1815; J2003; J2704; J3370; J7030; J7040; J7120; J7517; Q9967

== ENCOUNTER 2025-04-20 20:41 | Observation (INO) | payer MEDICARE, MEDICAID, SELFPAY ==
[2025-04-20] VITALS (14 sets, daily range): BP systolic 91–139; BP diastolic 68–85; PULSE 79–109; RESP 12–21; TEMP 36.8; O2SAT 92–100
--- NOTE | ~2025-04-20 | XR_ITS ---
XR chest 1V portable Ordering provider: Myla Gilbert MD History: 59 years Male with . sob . Comparison: February 08, 2025 FINDINGS: MEDIASTINUM: The cardiac silhouette is not enlarged. LUNGS: No infiltrates, effusions or pneumothorax. Right apical fibrotic changes. Bilateral lung emphy sematous changes. Small opacity in the right midzone laterally unchanged. Tiny nodule in the left api shaina area also unchanged. Emphysematous bulla is seen in the right upper lobe. OTHER: No free air under the diaphragm. IMPRESSION: No acute cardiopulmonary pathology. Reviewed, dictated and finalized at location A.
--- NOTE | ~2025-04-20 | CT_ITS ---
CTA chest PE protocol, CT soft tissue neck w con Ordering provider: Myla Gilbert MD History: 59 years Male with . SOB, hx COPD; also diff swallowing . Comparison: February 03, 2025 Technique: CT angiogram chest was performed following timed intravenous injection of contrast. Thin s lice axial images and reformatted coronal images were obtained. Three dimensional reformatted images of the chest were also obtained using a [employer] workstation. . Automated exposure control and iterati ve reconstruction technique were employed. The dose-length product was 203.64 (accession [id number]), 349.26 (accession [id number]) mGy-cm. 100 mL Omnipaque 350 was given IV. Findings: PULMONARY ARTERIES: No pulmonary embolus. VISUALIZED THORACIC INLET: Normal. MEDIASTINUM: Aorta/coronary arteries: Mild atheromatous disease. Heart/other: The heart is not enlarged. Lymph nodes: No mediastinal or hilar adenopathy. Soft tissue density is seen in the mid esophagus measuring 1.1 cm. Air-fluid level is seen in the upp er esophagus. Esophagoscopy is advised. LUNGS: Right apical cavitary changes seen with surrounding consolidation and bronchiectasis unchanged from p revious examination. Calcifications are seen in the trachea. Scarring with calcification also seen in theleft upper lobemedially. Underlying emphysematous changes are seen.Atelectatic changes in the rig ht and left lung base. Tiny nodules are seen in the left lung base.. 3 months Follow-up advised. No p ulmonary masses. No effusions. No pneumothorax. VISUALIZED UPPER ABDOMEN: Tiny stones in the left kidney upper and lower pole. Splenule is seen in th e area of the spleen. Otherwise, the visualized upper abdomen is normal. MUSCULOSKELETAL: Soft tissues: The superficial soft tissues are normal. Bones: Age appropriate degenerative changes of the spine. IMPRESSION: 1. No pulmonary embolism. 2. Cavitary changes in the right apical area unchanged. 3. Soft tissue density in the mid esophagus. Esophagoscopy is advised to exclude a mass. Dilated upp er esophagus is seen proximal to this area 4. Atelectatic changes in the lung bases posteriorly. 5. Underlying emphysematous changes. CTA chest PE protocol, CT soft tissue neck w con Ordering provider: Myla Gilbert MD History: 59 years Male with . SOB, hx COPD; also diff swallowing . Comparison: None. Technique: CT soft tissues neck was performed with contrast. . Automated exposure control and iterat libra reconstruction technique were employed. The dose-length product was 203.64 (accession [id number] [facility]), 349.26 (accession [id number]) mGy-cm. 100 mL Omnipaque 350 was given IV. Findings: LOWER HEAD: The visualized brain parenchyma, optic globes/orbits and mastoids are normal. Bilateral mastoid air cell effusion. Bilateral sphenoid sinus disease. Dilated upper esophagus is noted with soft tissue density seen in the mid esophagus better seen with the chest study. SALIVARY GLANDS: Normal. THYROID: Normal. SUPRAHYOID DEEP SPACES: Normal. CAROTID ARTERIES: Atherosclerotic changes. The right is severely narrowed at the bifurcation of about 90%. JUGULAR VEINS: Normal. The right is smaller in size. TONSILS: Normal. ORAL CAVITY: normal as visualized. PHARYNX, LARYNX AND TRACHEA: Patent and normal. No prevertebral soft tissue swelling. SUPERFICIAL SOFT TISSUES: Normal. No lymphadenopathy or neck mass. SKELETAL: Normal. IMPRESSION: Dilated esophagus with soft tissue density seen in the mid esophagus. Severe narrowing of the right carotid artery of about 75-90%. Other appearances as described above. Dr. Gilbert was notified with the result of the patient at 11:30 PM on April 20, 2020 Reviewed, dictated and finalized at location A. IMPRESSION: 1. No pulmonary embolism. 2. Cavitary changes in the right apical area unchanged. 3. Soft tissue density in the mid esophagus. Esophagoscopy is advised to exclu de a mass. Dilated upper esophagus is seen proximal to this area 4. Atelectatic changes in the lung bases posteriorly. 5. Underlying emphysematous changes. CTA chest PE protocol, CT soft tissue neck w con Ordering provider: Myla Gilbert MD History: 59 years Male with . SOB, hx COPD; also diff swallowing . Comparison: None. Technique: CT soft tissues neck was performed with contrast. . Automated expos ure control and iterative reconstruction technique were employed. The dose-phill th product was 203.64 (accession [id number]), 349.26 (accession [id number] [facility]) mGy-cm. 100 mL Omnipaque 350 was given IV. Findings: LOWER HEAD: The visualized brain parenchyma, optic globes/orbits and mastoids are normal. Bilateral mastoid air cell effusion. Bilateral sphenoid sinus dise ase. Dilated upper esophagus is noted with soft tissue density seen in the mid esoph leonel better seen with the chest study. SALIVARY GLANDS: Normal. THYROID: Normal. SUPRAHYOID DEEP SPACES: Normal. CAROTID ARTERIES: Atherosclerotic changes. The right is severely narrowed at th e bifurcation of about 90%. JUGULAR VEINS: Normal. The right is smaller in size. TONSILS: Normal. ORAL CAVITY: normal as visualized. PHARYNX, LARYNX AND TRACHEA: Patent and normal. No prevertebral soft tissue swe lling. SUPERFICIAL SOFT TISSUES: Normal. No lymphadenopathy or neck mass. SKELETAL: Normal. IMPRESSION: Dilated esophagus with soft tissue density seen in the mid esophagus. Severe narrowing of the right carotid artery of about 75-90%. Other appearances as described above. Dr. Gilbert was notified with the result of the patient at 11:30 PM on April 20 020 IMPRESSION: 1. No pulmonary embolism. 2. Cavitary changes in the right apical area unchanged. 3. Soft tissue density in the mid esophagus. Esophagoscopy is advised to exclu de a mass. Dilated upper esophagus is seen proximal to this area 4. Atelectatic changes in the lung bases posteriorly. 5. Underlying emphysematous changes. CTA chest PE protocol, CT soft tissue neck w con Ordering provider: Myla Gilbert MD History: 59 years Male with . SOB, hx COPD; also diff swallowing . Comparison: None. Technique: CT soft tissues neck was performed with contrast. . Automated expos ure control and iterative reconstruction technique were employed. The dose-phill th product was 203.64 (accession [id number]), 349.26 (accession [id number] [facility]) mGy-cm. 100 mL Omnipaque 350 was given IV. Findings: LOWER HEAD: The visualized brain parenchyma, optic globes/orbits and mastoids are normal. Bilateral mastoid air cell effusion. Bilateral sphenoid sinus dise ase. Dilated upper esophagus is noted with soft tissue density seen in the mid esoph leonel better seen with the chest study. SALIVARY GLANDS: Normal. THYROID: Normal. SUPRAHYOID DEEP SPACES: Normal. CAROTID ARTERIES: Atherosclerotic changes. The right is severely narrowed at th e bifurcation of about 90%. JUGULAR VEINS: Normal. The right is smaller in size. TONSILS: Normal. ORAL CAVITY: normal as visualized. PHARYNX, LARYNX AND TRACHEA: Patent and normal. No prevertebral soft tissue swe lling. SUPERFICIAL SOFT TISSUES: Normal. No lymphadenopathy or neck mass. SKELETAL: Normal.
--- NOTE | 2025-04-20 20:52 | ECG_ITS ---
Test Date: 2025-04-20 21:08:37 Measurements Intervals [place] Rate: 105 P: 80 CA: 146 QRS: 154 QRSD: 83 T: 31 QT: 271 QTc: 358 Interpretive Statements SINUS TACHYCARDIA WITH OCCASIONAL ECTOPIC PREMATURE COMPLEXES RIGHT AXIS DEVIATION POSSIBLE LEFT ATRIAL ENLARGEMENT POSSIBLE ANTERIOR MYOCARDIAL INFARCTION , PROBABLY OLD BORDERLINE ST-T WAVE ABNORMALITY- INF/LAT LEADS BASELINE ARTIFACT- I, II, III, AVR, AVL, AVF, V4-V6 ABNORMAL ECG Compared to ECG 02/07/2025 20:56:25 POSSIBLE ISCHEMIA NO LONGER PRESENT Electronically Signed On 04-21-2025 06:22:08 CDT by Cal Carranza D.O.
[2025-04-20 21:08] LABS: Basophils Absolute Auto 0.1 K/mm3 (0.0-0.1); Basophils Percent Auto 0.6 % (0.2-1.2); Eosinophils Absolute Auto 0.1 K/mm3 (0-0.3); Eosinophils Percent Auto 1.2 % (0-4.4); Hematocrit 32.5 % (42.0-52.0); Hemoglobin 10.6 g/dL (14.0-18.0); Immature Granulocyte Absolute 0.08 K/mm3 (0.00-0.031); Immature Granulocyte Percent A 0.8 % (0-0.5); Lymphocytes Absolute Auto 3.24 K/mm3 (0.9-3.2); Lymphocytes Percent Auto 30.6 % (18.3-44.2); Mean Corpuscular HGB Conc 32.6 g/dl (32-36); Mean Corpuscular Hemoglobin 34.5 pg (26-34); Mean Corpuscular Volume 105.9 fl (80-100); Mean Platelet Volume 10.6 fl (7.4-10.4); Monocytes Percent Auto 9.1 % (2.6-8.5); Neutrophils Absolute Auto 6.1 K/mm3 (1.3-6.7); Neutrophils Percent Auto 57.7 % (45.5-73.1); Platelet Count Result 362 k/mm3 (150-375); Red Blood Count 3.07 M/mm3 (4.6-6.20); Red Cell Distribution Width 13.2 % (11.5-14.5); White Blood Count 10.6 K/mm3 (4.5-10.0)
--- OUTSIDE RECORDS SUMMARY | 2025-04-20 21:13 | XMS_ITS | Clinical Summary ---
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 [facility] Lens Left: Eye [employer] [id number] 10/05/2025 SN60WF.17 0 / [id number] / 0 Explanted Type Area Float Tender Device Identifier Shelf Expiration Date Model / Serial / Lot [place] [employer] Jasmin [id number] Advanix 7fr 5cm Temporary Rapid Exchange [place] Stent - [id number] Implanted:Qty: 1 on 09/07/2021 by Tay Charlton MD at [facility] Explanted:Qty: 1 on 11/14/2021 by Tay Charlton MD at [facility] Stent N/A: Bile Duct [place] [employer] Jasmin 01/11/2023 [id number] / / [id number] [employer] 6555 Salazar Flexi-Stent 5fr 9cm Small Pigtail Flexible .035in Stent - [id number] Implanted:Qty: 1 on 09/07/2021 by Tay Charlton MD at [facility] Explanted:Qty: 1 on 11/14/2021 by Tay Charlton MD at [facility] Stent N/A: Pancreas ITM Power 06/17/2026 [id number] / / [id number] Description:PD stent not pre sent during this case Procedures Procedure Name Priority Date/Time Associated Diagnosis Comments EGFR Routine 01/02/2025 1:50 AM MANAGER EXPORT HEPATITIS PANEL, ACUTE Routine 12/18/2024 8:21 PM MANAGER EXPORT HEMOGLOBIN A1C Routine 11/17/2024 12:31 AM MANAGER EXPORT LIPID PANEL Add-On 07/14/2024 6:22 PM CDT ALBUMIN CREATININE RATIO, URINE STAT 02/28/2022 8:57 AM CDT Type 2 diabetes mellitus with hyperosmolarity without coma, with long-term current use of insulin (HCC) Vitamin D deficiency Vicss-xkqamt-jqnb disease (HCC) Other osteoporosis without current pathological fracture Screening for thyroid disorder PSA SCREEN Routine Gen Lab 02/04/2017 8:36 AM CDT from Last 3 Months or Most Recently Relevant to Health Maintenance Results * eGFR (01/02/2025 1:50 AM MANAGER EXPORT) eGFR >90 >=60 mL/min/1. 73 m2 Comment: [...] last reviewed 2021. Blood 01/02/2025 1:50 AM MANAGER EXPORT 01/02/2025 2:14 AM MANAGER EXPORT us Jared Davis MD LAB BLOOD ORDERABLES Final R esult [facility] Department [place] [address] * Hepatitis panel, acute Blood (12/18/2024 8:21 PM MANAGER EXPORT) Pathologist [facility] Hep A IgM Nonreactive Nonreactive Hep B core IgM Nonreactive Nonreactive [facility] Hep C Ab Nonreactive Nonreactive [facility] Comment:Antibodies to HCV no t detected. Does NOT exclude the possibility of recent exposure to HCV. Current interpretive data was last revised on 22 HepBsAg Nonreactive Nonreactive [facility] Blood 12/18/2024 8:21 PM MANAGER EXPORT 12/18/2024 8:43 PM MANAGER EXPORT us Kay La MD LAB MICROBIOLOGY - GENERA L ORDERABLES Final Result Performing Organization Address [facility] Co de Phone Number [facility] [place] [address] * (ABNORMAL) Hemoglobin A1c (11/17/2024 12:31 AM MANAGER EXPORT) Hgb A1C 6.0(H) 4.0 - 5.6 % Estimated Average Glucose 126 mg/dL [facility] Comment: The ADA recommends reporting an estimated Average Glucose (eAG) with all Hemoglobin A1c results using the equation derived from a study of 507 normal and diabetic adults. Minority populations were underrepresented and children were not included. (Diabetes Care 2020; 43(S1): S66-S76). The eAG is not equivalent to a fasting glucose. Blood 11/17/2024 12:3 1 AM MANAGER EXPORT 11/17/2024 12:52 AM MANAGER EXPORT Narrative [facility] - 11/17/2024 5:28 PM MANAGER EXPORT Reflex Cruz Redding MD PhD LAB BLOOD ORDERABLE S Final Result Performing Organization Address [facility] Co de Phone Number [facility] Department [place] [address] * Lipid panel (07/14/2024 6:22 PM CDT) [...] last revised on 2018. Chol/HDL ratio 2 [facility] Blood 07/14/2024 6:22 PM CDT 07/14/2024 9:07 PM CDT us Cameron BERNAL LAB BLOOD ORDERABLES Final R esult Performing Organization Address City/[facility]/ZIP Co de Phone Number [facility] [address] [facility] Department [place] [address] * Albumin Creatinine Ratio, Urine (02/28/2022 8:57 AM CDT) Albumin Ur <12.0 mg/L [facility] Comment: Interpretive Data No reference range established. Current interpretive data was last revised 2019. Creatinine Ur 42.0 mg/dL [facility] Comment: Interpretive Data No reference range established. Current interpretive data was last revised 2019. Albumin Creatinine Ratio, Ur <29 1 - 29 mg/g [facility] Urine 02/28/2022 8:57 AM CDT 02/28/2022 1:[address] Montejo MD LAB URINE ORDERABLES Final Resu lt [facility] [place] [address] * PSA screen (02/04/2017 8:36 AM CDT) PSA-Total 0.7 0.1 - 4.0 ng/mL [facility] Blood specimen (specimen) 02/04/2017 8:36 AM CDT 02/04/2017 9:05 AM CDT us Josué Del Valle MD PhD LAB BLOOD ORDERABLES Fin al Result [facility] [place] [address] from Last 3 Months or Most Recently Relevant to Health Maintenance 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 (gown and gloves) - Vladimir BURRELL RN 01/06/25 12/23/2024 12/23/2024 Insurance MEDICARE [employer] MEDICARE ADVANTAGE [facility] MEDICARE ADVANTAGE [facility] MEDICARE ADVANTAGE Advance Directives For more information, please contact: [phone] * Full Code (Latest Code Status on [...] 11:09 PM 08/02/2024 3:41 PM Care Teams Rounding Machine Operator Relationship Specialty Start Date End Date Kirt Lindsay DO PCP - General Internal Medicine 02/02/21 Josué Del Valle MD PhD Medical Oncologist/Spool Cleaner Hand Medical Oncology 08/26/19 Cal Carranza DO [address] [place] [address] Car Pincher Internal Medicine 06/12/23 Halie Khan MD [address] [place], [place] [id number] Director [employer] [facility] Critical Care Med 06/12/23 Wilfred Kinsey MD [address] [address] Consulting Physician Gastroenterology 03/02/24
--- OUTSIDE RECORDS SUMMARY | 2025-04-20 21:13 | XMS_ITS | Encounter Summary ---
Author Organization [facility] Address [address] [place] [address] Phone Care Team Providers Care Biomass Production Manager Name Role Phone Josué Del Valle MD PhD Unavailable [phone] Kirt Lindsay DO Primary Care Provider [phone] Tay Charlton MD Unavailable [phone] Halie Khan MD Unavailable [phone] Ant Starks MD Unavailable [phone] Cal Carranza DO Unavailable Halie Khan MD Unavailable [phone] Wilfred Kinsey MD Unavailable Encounter Details Date Type Department Care Team (Late st Contact Info) Description 12/31/2022 Telephone [facility] Oncology [address] [facility] 7[address] [place] [address] [place] [address] Irina Conrad Social History Tobacco [...] Legal Sex Male 10:48 AM DIRECTOR OF MATERIALS MANAGEMENT Gender Identity Not on file [...] CDT 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 12/16/2024 3:05 AM DIRECTOR OF MATERIALS MANAGEMENT COVID: Suspected 07/23/2024 07/24/2024 07/24/2024 4:49 AM CDT COVID: Suspected 12/18/2024 12/18/2024 12/18/2024 10:17 PM DIRECTOR OF MATERIALS MANAGEMENT C. difficile suspected 12/22/2024 12/23/202412/23 5:56 AM DIRECTOR OF MATERIALS MANAGEMENT VRE Comment:Contact Precautions (gown and gloves) - Vladimir BURRELL, RN 01/06/25 12/23/2024 12/23/2024 documented as of this encounter Care Teams Biomass Production Manager Relationship Specialty Start Date End Date Kirt Lindsay DO PCP - General Internal Medicine 02/02/21 Josué Del Valle MD PhD Medical Oncologist/Folder Machine Medical Oncology 08/26/19 Tay Charlton MD Consulting Physician Gastroenterology 12/03/21 06/11/23 Halie Khan MD [address] [address] Consulting Physician Pulmonary Disease 12/12/21 3 Ant Starks MD [address] [facility] [address] [place] [address] Consulting Physician Transplant Hepatology 01/12/22 Cal Carranza DO [address] [place] [address] Life Science Teacher Internal Medicine 06/12/23 Halie Khan MD [address] [facility] [address] [place] [address] Tobacco Wetter Critical Care Med 06/12/23 Wilfred Kinsey MD [address] [address] Consulting Physician Gastroenterology 03/02/24 documented as of this encounter
--- OUTSIDE RECORDS SUMMARY | 2025-04-20 21:13 | XMS_ITS | Encounter Summary ---
Author Organization [facility] Address [address] [place] [address] Phone Care Team Providers Care Testing And Regulating Technician Name Role Phone Kirt Lindsay DO Primary Care Provider [phone] Josué Del Valle MD PhD Unavailable [phone] Halie Khan MD Primary Care Provider [phone] Kirt Lindsay DO Primary Care Provider + [phone] Tay Charlton MD Unavailable [phone] Halie Khan MD Unavailable [phone] StarksAnt goldman MD Unavailable [phone] Dillon Calreed Dorado DO Unavailable [phone] Halie Khan MD Unavailable [phone] Wilfred Kinsey MD Unavailable Encounter Details Date Type Department Care Team (Latest Contact Info) Description 12/30/2017 Orders Only [facility] CONVERSION Scanning, Provider Social History Tobacco Use Types Packs/Day Years Used Date Smoking Tobacco: Every Day Sex and Gender Information Value Date Recorded Sex Assigned at Not on file Legal Sex Male 10:48 AM MANAGER EMPLOYEE RELATIONS Gender Identity Not on file Sexual Orientation Not on file documented as of this encounter Plan of Treatment Not on file documented as of this encounter Procedures Procedure Name Priority Date/Time Associated Diagnosis Comments PULMONARY FUNCTION TEST (PFT) 12/30/2017 1:11 PM MANAGER EMPLOYEE RELATIONS documented in this encounter Results * PULMONARY FUNCTION TEST (PFT) (12/30/2017 1:11 PM MANAGER EMPLOYEE RELATIONS) Anatomical Region Laterality Modality PFT us Provider [...] CDT 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 12/16/2024 3:05 AM MANAGER EMPLOYEE RELATIONS COVID: Suspected 07/23/2024 07/24/2024 07/24/2024 4:49 AM CDT COVID: Suspected 12/18/2024 12/18/2024 12/18/2024 10:17 PM MANAGER EMPLOYEE RELATIONS C. difficile suspected 12/22/2024 12/23/202412/23 5:56 AM MANAGER EMPLOYEE RELATIONS VRE Comment:Contact Precautions (gown and gloves) - Vladimir BURRELL, RN 01/06/25 12/23/2024 12/23/2024 documented as of this encounter Care Teams Testing And Regulating Technician Relationship Specialty Start Date End Date Kirt Lindsay DO PCP - General 05/02/17 11/22/20 Halie Khan MD [address] [address] PCP - General Critical Care Med 11/23/20 02/01/21 Kirt Lindsay DO PCP - General Internal Medicine 02/02/21 Josué Del Valle MD PhD Medical Oncologist/Channel Process Plant Operator Medical Oncology 08/26/19 Tay Charlton MD [address] [address] Consulting Physician Gastroenterology 12/03/21 06/11/23 Halie Khan MD [address] [address] Consulting Physician Pulmonary Disease 12/12/21 3 Ant Starks MD [address] [address] Consulting Physician Transplant Hepatology 01/12/22 Cal Carranza DO [address] [address] Heading Maker Internal Medicine 06/12/23 Halie Khan MD [address] [facility] [address] [place] [id number] Heel Seam Rubber Critical Care Med 06/12/23 Wilfred Kinsey MD [address] [address] Consulting Physician Gastroenterology 03/02/24 documented as of this encounter
--- OUTSIDE RECORDS SUMMARY | 2025-04-20 21:13 | XMS_ITS | Referral Summary ---
Author Organization [facility] Address [address] [place] [address] Care Team Providers Care Lan Support Specialist Name Role Phone Josué Del Valle MD PhD Unavailable Kirt Lindsay DO Primary Care Provider [phone] Cal Carranza DO Unavailable [phone] Halie Khan MD Unavailable [phone] Wilfred Kinsey MD Unavailable Encounters Date Type Department Care Team Description 02/15/2025 Orders Only [facility] Endocrinology Metabolism and Lipid [address] [facility] 13th [place] [address] [place] [id number] Bela Orellana, RN Type 2 diabetes mellitus with hyperosmolarity without coma, with long-term current use of insulin (HCC) 02/15/2025 Orders Only [facility] [address] [place] [phone] Josué Del Valle MD PhD Acute myeloblastic leukemia, in remission (HCC) 02/15/2025 Telephone [facility] [address] [place] [phone] Josué Del Valle MD PhD 01/22/2025 9:15 AM POSTAL SORTING OFFICER Home Care Visit [address] [place] [address] Roxy Aaron, PT PT VIRTUAL OASIS DISCHARGE 01/18/2025 Home Care Visit [address] [place] [address] Júnior Lal, [facility] CASE COMMUNICATION from Last 3 Months Allergies Active Allergy [...] (BULK) 1 each 11 09/08/20 24 Active ondansetron ODT (ZOFRAN-ODT) 4 [...] flash glucose scanning reader (FreeStyle Evaristo 2 Angier) miscIndications:Typ e 2 diabetes mellitus with hyperosmolarity without coma, with long-term current use of insulin (HCC) Use to test blood glucose continuously 1 each 02/16/20 Active flash glucose sensor (FreeStyle Evaristo 2 Sensor) kitIndications:Type 2 diabetes mellitus with hyperosmolarity without coma, with long-term current use of insulin (HCC) Change sensor every 14 days 2 kit 2 02/16/20 25 Active Active Problems Patient Care Coordination No te Formatting of this note is d ifferent from the original. BMT Inpatient Care Coordination Overview Diagnosis AML Floor [address] Treatment Plan Clinical Trial Reason for Admission From OSH for sepsis and elevated LFTs Transplant/IEC Planning BMT/IEC Plan S/p sib allo 11/09/2009- gvhd to eyes HLA typing/IDMs Insurance Approvals/Issues Discharge Planning Anticipated Discharge Date 12/23/24 Patient Education Completed Issue to be Resolved Before Discharge Discharge Disposition Home Requests Sent to Case Management and/or Medical Assistants Post-Discharge Follow-Up Living Situation/Distance from [facility] [place] (local) - 30 min Caregiver Lab/Transfusion Frequency Phone: Fax: Venous Access & Care peripheral Local Oncologist Contact Phone: Fax: Post-Discharge Office Visit (H30) CASSANDRA - 01/06 w/ DOFFER Jame TREJO - Sometimes no-shows for appts Miscellaneous Notes: Problem Noted Date Diagnosed Date Macrocytic anemia 01/02/2025 Assessment & Plan (01/02/2025 6:23 PM POSTAL SORTING OFFICER): Likely secondary to COPD. vitamin B12, folic acid wNL. Epigastric pain 01/02/2025 Assessment & Plan (01/02/2025 6:25 PM POSTAL SORTING OFFICER): 2/2 esophageal ulcers. PPI BID Karafate Oxycodone 10 mg q6hprn. Avoid NSAID. Chronic hypoxic respiratory failure 12/28/2024 Assessment & Plan (12/28/2024 7:07 PM POSTAL SORTING OFFICER): 2/2 copd. Stable oxygen requirement. Continue inhaled therapies and supplemental o2. Ulcer of esophagus without bleeding 12/25/2024 Assessment & Plan (01/01/2025 4:00 PM POSTAL SORTING OFFICER): EGD 01/01/25 Esophageal ulcers with no stigmata of recent bleeding. Linear ulcers had mild spontaneous oozing. Biopsied and sent for CMV, HSV and MAC. Continue BID PPI for 8 weeks, continue karafate. Needs repeat EGD in 8 weeks to confirm healing. Biopsy needs to be followed. Hb stable. Other pulmonary embolism without acute cor pulmo nale 12/19/2024 Assessment & Plan (01/01/2025 4:21 PM POSTAL SORTING OFFICER): History of DVT 2012, 2017, PE in 2012. He takes Xarelto at home which was held for EGD. Since remote h/o PE/DVT, will not discharge on xarelto due to multiple esophageal ulcers and risk of bleeding. Moderate protein-calorie malnutrition 11/30/2024 Assessment & Plan (01/01/2025 4:21 PM POSTAL SORTING OFFICER): Supplement of choice tid w meals. Assessment & Plan (11/30/2024 8:14 AM POSTAL SORTING OFFICER): Diagnosed by RD per ASPEN criteria. Malnutrition can delay patient's recover from his infection. 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 On triple regimen recommended by ID. 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 Assessment & Plan (11/17/2024 12:20 PM POSTAL SORTING OFFICER): Involving the eyes and the lungs - MMF 1 g b.i.d., tacro 0.5 every other day, and he is on prednisone only when he has wheezing or sob- 20mg a day -Tac level . Coronary artery disease invo lving [place] coronary artery of [place] heart without angina pectoris 11/16/2024 Assessment & Plan (01/01/2025 4:18 PM POSTAL SORTING OFFICER): Continue Plavix (held for procedure) Holding statin due to elevated LFT 08/11- EF 30%, Global hypokinesis Resume toprol 12.5 mg from 01/02/25. Resume plavix from 01/02/25. Assessment & Plan (11/28/2024 1:53 PM POSTAL SORTING OFFICER): Hx of STEMI s/p PCI to RCA 2022 -Continue home plavix 75 mg daily, atorvastatin Assessment & Plan (11/18/2024 10:42 AM POSTAL SORTING OFFICER): S/p PCI to RCA in 2022 -cont plavix, atorvastatin Food bolus obstruction of intestine 11/15/2024 Hypocalcemia 07/25/2024 Assessment & Plan (07/25/2024 12:05 PM CDT): Ca 8.1. Due to hypoalbumin, Ca is wnl with hypoalbuminemia correction. -continue to monitor and treat as indicated History of esophagitis 07/24/2024 Assessment & Plan (07/24/2024 12:18 AM CDT): - Continue protonix. Has a chronic globus sensation [facility]. Appears was seen by speech during last OSH stay Acute on chronic respiratory failure 07/23/2024 Assessment & Plan (07/26/2024 11:51 AM CDT): Hx Mycoplasma avium and cavitary lung disease, hx Stenotrophamonas PNA 05/2024, HFpEF, COPD on chronic O2. Presenting for 4d of worsening SOB. Presented to [facility] ED 07/19 for SOB and treated for COPD exac with pred course. Presented to [facility] on 07/21 for worsening SOB. CXR and [...] okmelania for soft diet - sputum culture ordered, [...] infection Assessment & Plan (12/28/2024 7:14 PM POSTAL SORTING OFFICER): Follows up with ID for history of nontuberculous mycobacterial infection. - Transplant ID consulted - restarted azithromcyin and ethambutol on 12/21. Defer clofazimine for at least 1 week following resolution of transaminitis Assessment & Plan (11/17/2024 12:22 PM POSTAL SORTING OFFICER): Follows with ID; last seen in clinic [...] now with expectation of submitting this to [place] [facility] on ~07/13. Beginning empiric therapy [...] 06/16/2024 Assessment & Plan (11/17/2024 12:22 PM POSTAL SORTING OFFICER): RD following Assessment & Plan (07/24/2024 1:02 [...] 06/15/2024 Assessment & Plan (12/19/2024 12:50 AM POSTAL SORTING OFFICER): On chronic oxygen therapy with 3 L nasal cannula during daytime, 5 L nasal cannula during night time Smokes cigarettes occasionally, uses nicotine patches at home Continue montelukast, Trelegy Ellipta inhaler, DuoNebs p.r.n. Assessment & Plan (11/28/2024 4:11 PM POSTAL SORTING OFFICER): Last PFT 08/15/23: FEV1 35% predicted. Residual [...] 02/20/2024 Assessment & Plan (12/23/2024 11:51 AM POSTAL SORTING OFFICER): -History of Kovacs's esophagus next and endoscopy was on 16 of November showed food in middle 3rd of esophagus, stasis esophagitis in the mid esophagus. Path showed Cardia-type gastric mucosa with intestinal metaplasia. -Gi consulted, recommended outpatient follow up for EGD. Kovacs's esophagus without dysplasia 02/20/2024 Assessment & Plan (01/01/2025 4:01 PM POSTAL SORTING OFFICER): EGD 11/16 showed food in middle 3rd of esophagus, stasis esophagitis in the mid esophagus. 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 -Continue carafate 1g bid, PPI bid. - benign esophageal stenosis seen in EGD onn 01/01/25. Dilated to 18 mm. -Repeat EGD 2 months from 01/01. Assessment & Plan (11/28/2024 4:10 PM POSTAL SORTING OFFICER): Admitted recently due to food stuck at chest. EGD 11/16 showed food in middle 3rd of esophagus, stasis esophagitis in the mid esophagus. 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 -Continue carafate 1g bid, PPI bid. -Repeat EGD 3 months from 11/17 Assessment & Plan (11/18/2024 10:43 AM POSTAL SORTING OFFICER): After eating chicken/spaghetti on 11/14 felt pressure/stuck [...] 02/13/2022 Assessment & Plan (12/01/2024 12:17 PM POSTAL SORTING OFFICER): Patient reports symptom of chest tightness. CT at OSH showed new infiltrate at left upper lobe. Has know cavitary lung lesion from July. Previously on amikacin but was held due to elevated creatinine. Suspect that CAP is the main hook up driver of patient's symptoms. May have some [...] disease) Assessment & Plan (11/17/2024 12:17 PM POSTAL SORTING OFFICER): He has Ventolin inhaler, Trelegy inhaler, albuterol inhaler, and Singulair 10 a day. On 3L oxygen at home Biliary sludge 12/20/2021 Overview (12/20/2021): Added automatically from request for surgery [id number] Other osteoporosis without current pathological fracture 11/23/2021 Encounter for removal of biliary stent Overview (10/03/2021): Added automatically from request for surgery [id number] History of DVT (deep vein thrombosis) 09/08/2021 [...] (09/07/2021): Added automatically from request for surgery [id number] Assessment & Plan (07/25/2024 12:01 PM CDT): - Recent hx pancreatitis admission without obvious source. Pain was slowly recurring in the last few days. Lipase was WNL at LFTs wnl at OSH and wnl on repeat here. Improving. - Pain control. - Tolerating mechanical soft diet Upper GI bleed 09/07/2021 Overview (09/07/2021): Added automatically from request for surgery [id number] Assessment & Plan (09/10/2021 9:18 AM CDT): [...] (03/30/2021): Added automatically from request for surgery [id number] Assessment & Plan (08/09/2021 10:27 AM CDT): [...] (06/16-06/20) Assessment & Plan (11/26/2019 10:45 AM POSTAL SORTING OFFICER): POA. Possibly community-acquired and/or 2/[address] Strep pneumoniae pos sputum cx. See SOB problem. Shortness of breath 11/20/2019 Assessment & Plan (11/27/2019 12:14 PM POSTAL SORTING OFFICER): Concern for poss GVHD and/or poss COPD [...] 11/20/2019 Assessment & Plan (11/28/2024 3:54 PM POSTAL SORTING OFFICER): Echo 11/24 at OSH: LVEF 40-45% wit hinferior akinesis, similar to EF in 2022, mild MR -Continue home metoprolol 12.5 mg daily, jardiance 10 mg daily Assessment & Plan (11/16/2024 3:06 AM POSTAL SORTING OFFICER): Euvolemic on exam currently; no new SOB - continue metop, jardiance Assessment & Plan (07/26/2024 11:49 AM CDT): TTE 03/2024 with LVEF 50-55%. Pro BNP at OSH >30k. Last adm here 1012. Appears euvolemic. S/p Lasix at OSH and [place] [address] - repeat TTE 07/24: LVEF 30%, moderate [...] 1012 Assessment & Plan (11/28/2019 10:27 AM POSTAL SORTING OFFICER): Closely monitor blood sugar to avoid hypoglycemia Assessment & Plan (11/27/2019 1:35 PM POSTAL SORTING OFFICER): Closely monitor blood sugar to avoid hypoglycemia Assessment & Plan (11/26/2019 5:32 PM POSTAL SORTING OFFICER): Closely monitor blood sugar to avoid hypoglycemia Assessment & Plan (11/25/2019 4:51 PM POSTAL SORTING OFFICER): Closely monitor blood sugar to avoid hypoglycemia Assessment & Plan (11/24/2019 4:57 PM POSTAL SORTING OFFICER): Closely monitor blood sugar to avoid hypoglycemia Assessment & Plan (11/23/2019 2:01 PM POSTAL SORTING OFFICER): Closely monitor blood sugar to avoid hypoglycemia Assessment & Plan (11/24/2019 10:51 AM POSTAL SORTING OFFICER): With diastolic dysfunction, new diagnosis. -Continue Lasix. [...] TID Assessment & Plan (11/20/2019 4:17 PM POSTAL SORTING OFFICER): Continue gabapentin Tobacco abuse 11/20/2019 Assessment & Plan (06/16/2024 6:44 PM CDT): Encourage cessation Assessment & Plan (11/20/2019 4:18 PM POSTAL SORTING OFFICER): Nicotine patch Depressed mood 11/24/2018 Assessment & Plan (11/24/2018 4:56 PM POSTAL SORTING OFFICER): With feelings of depressed mood prior to admission. Outpt team with concerns for pt's wellbeing as he was more noncompliant and down over the phone prior to admit. -Consulted [facility] counseling 11/24, will plan to see him on AM of 11/25 at 0900. -Also consulted psychiatry, but felt that counseling service was appropriate first step and would only see him if they recommended pharm therapy. DVT (deep venous thrombosis) 11/23/2018 Assessment & Plan (11/28/2024 1:53 PM POSTAL SORTING OFFICER): Hx of PE in 2012, DVT IJ 2017 -Continue home xarelto 20 mg dialy Assessment & Plan (11/18/2024 10:42 AM POSTAL SORTING OFFICER): DVT lower ext 2012, DVT IJ 2018, PE 02/02/2013. - He is on Xarelto 20 mg a day Assessment & Plan (06/18/2024 12:57 PM CDT): DVT lower ext 2012, DVT IJ 2018, PE 02/02/2013. -Continue Xarelto 20 mg a day Assessment & Plan (06/16/2024 2:52 PM CDT): DVT lower ext 2012, DVT IJ 2018, PE 02/02/2013. He remains on Xarelto 20 mg a day (Last dose 06/14). On hold for bronch. Distant hx of DVT/PE. Continue to hold for now till no procedure anticipated Assessment & Plan (02/12/2022 6:46 AM CDT): - History of DVT 2012, 2018, PE in 2012. He takes Xaralto at home - Continue to take Xaralto 20 mg Po daily. Assessment & Plan (08/17/2021 12:28 PM CDT): 2 events of PE/DVT and only DVT in 2012 and 2017 Resume home Xeralto Assessment & Plan (11/20/2019 3:57 PM POSTAL SORTING OFFICER): Continue xarelto Assessment & Plan (11/23/2018 11:32 AM POSTAL SORTING OFFICER): Cont Xarelto. Sinusitis 11/22/2018 Assessment & Plan (11/24/2018 4:48 PM POSTAL SORTING OFFICER): Chronic issue over last 2 months. -With [...] with exacerbation ([facility]) 11/22/2018 Assessment & Plan (07/24/2024 1:00 [...] exertion Assessment & Plan (11/20/2019 4:16 PM POSTAL SORTING OFFICER): Continue inhalers Assessment & Plan (11/23/2018 11:29 AM POSTAL SORTING OFFICER): Continues to smoke >1 ppd. -Cont steroids at current dose. -Cont Advair diskus BID, cont albuterol inh QID. -Encourage smoking cessation. Cont nicotine patch. Cough 10/17/2018 Pure hypercholesterolemia 08/04/2018 Assessment & Plan (02/12/2022 6:02 AM CDT): - continue home dose atorvastatin 40 mg PO daily Assessment & Plan (01/15/2020 3:22 PM POSTAL SORTING OFFICER): -LDL at goal -will continue atorvastatin 40 mg daily Assessment & Plan (11/28/2019 10:27 AM POSTAL SORTING OFFICER): On atorvastatin 40 mg daily Assessment & Plan (11/27/2019 1:35 PM POSTAL SORTING OFFICER): On atorvastatin 40 mg daily Assessment & Plan (11/26/2019 5:32 PM POSTAL SORTING OFFICER): On atorvastatin 40 mg daily Assessment & Plan (11/25/2019 4:50 PM POSTAL SORTING OFFICER): On atorvastatin 40 mg daily Assessment & Plan (11/24/2019 4:57 PM POSTAL SORTING OFFICER): On atorvastatin 40 mg daily Assessment & Plan (11/23/2019 2:02 PM POSTAL SORTING OFFICER): On atorvastatin 40 mg daily Assessment & Plan (11/20/2019 4:18 PM POSTAL SORTING OFFICER): Continue statin Assessment & Plan (08/07/2019 1:35 [...] level Assessment & Plan (01/15/2020 3:22 PM POSTAL SORTING OFFICER): -vitamin D levels still low, unclear compliance -will continue current regimen Assessment & Plan (11/28/2019 10:29 AM POSTAL SORTING OFFICER): Last vitamin-D level low at 16. Continue vitamin D2 57989 units weekly and vitamin D3 2000 units daily Assessment & Plan (11/27/2019 1:35 PM POSTAL SORTING OFFICER): Last vitamin-D level low at 16. Continue vitamin D2 21683 units weekly and vitamin D3 2000 units daily Assessment & Plan (11/26/2019 5:32 PM POSTAL SORTING OFFICER): Last vitamin-D level low at 16. Continue vitamin D2 94596 units weekly and vitamin D3 2000 units daily Assessment & Plan (11/25/2019 4:51 PM POSTAL SORTING OFFICER): Last vitamin-D level low at 16. Continue vitamin D2 75811 units weekly and vitamin D3 2000 units daily Assessment & Plan (11/24/2019 4:57 PM POSTAL SORTING OFFICER): Last vitamin-D level low at 16. Continue vitamin D2 09069 units weekly and vitamin D3 2000 units daily Assessment & Plan (11/23/2019 2:02 PM POSTAL SORTING OFFICER): Last vitamin-D level low at 16. Continue vitamin D2 48770 units weekly and vitamin D3 2000 units [...] 05/06/2018 Assessment & Plan (12/30/2024 4:24 PM POSTAL SORTING OFFICER): S/p 7+3 HIDAC consolidation * 3, decitabine maintenance on CALG 69002. Had relapse s/p AMD/MEC. 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 OI ppx: acv, Hold cresemba 2/2 transaminitis. Assessment & Plan (11/28/2024 1:55 PM POSTAL SORTING OFFICER): S/p 7+3 HIDAC consolidation * 3, decitabine maintenance on CALG 89770. Had relapse s/p AMD/MEC. 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 -OI ppx: acv, crsemba Assessment & Plan (11/18/2024 10:41 AM POSTAL SORTING OFFICER): AML. S/p 7+3 and hidac consolidation x3, decitabine maintenance on CALG 48589 protocol. Had relapse s/p AMD/MEC. 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 -Last seen by Dr. Del Valle 06/12/23, in remission - acyclovir 400 t.i.d and antifungal ppx with voriconazole vs cresemba. Plan med rec w [employer] [facility] today Assessment & Plan (06/17/2024 3:28 PM CDT): Follows Dr. Bauman, last seen in clinic on 06/09/2023 -AML diagnosed in 2008 s/p 7+3 and HiDAC consolidation x3 followed by Decitabine maintenance on the CALGB 36389 protocol. -Followed by Relapsed disease, status post [...] followed by Decitabine maintenance on the CALGB 38314 protocol. 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 voriconazole 200 b.i.d Assessment & Plan (09/10/2021 9:20 AM CDT): -S/p Busulfan and Cytoxan on the [facility] allogeneic study with his sister, 10/10 match; with day 0 on 11/09/2009 after induction with 7+3 and HiDAC consolidation x3. Followed by Decitabine maintenance on the CALGB 23826 protocol and relapsed disease, status post AMD/MEC. - 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Most recent BMBx in our records is from 12/12/2017 with neg path and flow -OI prophylaxis, acyclovir Assessment & Plan (08/17/2021 3:45 PM CDT): S/p Busulfan and Cytoxan on the [facility] allogeneic study with his sister, 08/27 match; with day 0 on 11/09/2009 after induction with 7+3 and HiDAC consolidation x3. Followed by Decitabine maintenance on the CALGB 91298 protocol and relapsed disease, status post AMD/MEC. 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 - Relapsed disease, status post an allogeneic transplant with busulfan and Cytoxan on the [facility] allogeneic study with his sister, 08/27 match; with day 0 on 11/09/2009. - Currently in remission. Follows with Dr. Del Valle - On tacro, cellcept - OI ppx: Cont acyclovir. Added vori and bactrim (pt stated he was no longer taking at home). Assessment & Plan (11/23/2018 11:24 AM POSTAL SORTING OFFICER): -s/p sibling allo SCT on 11/09/09, now in CR with no e/o recurrence. 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 -Cont OI ppx with Bactrim, acyclovir. Controlled type 2 diabetes m ellitus without complication, with long-term current use of insulin 05/06/2018 Assessment & Plan (12/19/2024 12:54 AM POSTAL SORTING OFFICER): Continue home empagliflozin in the setting of HfrEF Sliding scale insulin Assessment & Plan (11/28/2024 1:56 PM POSTAL SORTING OFFICER): Last A1c 6.0 on 11/17/24 -SSI Assessment & Plan (11/18/2024 10:43 AM POSTAL SORTING OFFICER): On lantus/humalog at home (he reports taking [...] steroids Assessment & Plan (01/15/2020 3:24 PM POSTAL SORTING OFFICER): -poorly controlled, exacerbated by prednisone use -Hgb [...] goal Assessment & Plan (11/28/2019 10:29 AM POSTAL SORTING OFFICER): Patient has uncontrolled type 2 diabetes with [...] education. Assessment & Plan (11/27/2019 1:35 PM POSTAL SORTING OFFICER): Patient has uncontrolled type 2 diabetes with [...] education. Assessment & Plan (11/26/2019 5:32 PM POSTAL SORTING OFFICER): Patient has uncontrolled type 2 diabetes with [...] here. Assessment & Plan (11/25/2019 4:50 PM POSTAL SORTING OFFICER): Patient has uncontrolled type 2 diabetes with [...] here. Assessment & Plan (11/24/2019 4:57 PM POSTAL SORTING OFFICER): Patient has uncontrolled type 2 diabetes with [...] here. Assessment & Plan (11/23/2019 2:01 PM POSTAL SORTING OFFICER): Patient has uncontrolled type 2 diabetes with [...] here. Assessment & Plan (11/28/2019 9:33 AM POSTAL SORTING OFFICER): On basaglar 30 units AM and novolog [...] goal Assessment & Plan (11/24/2018 4:59 PM POSTAL SORTING OFFICER): -Poorly controlled, recently stopped checking glucose as [...] needles and sent e-script to [facility] in [place] on 11/24. Pt has script for glucose [...] takes acyclovir and voriconazole for medical ppx Xligs-ibziog-pbex disease 07/08/2012 Assessment & Plan (11/30/2024 3:25 PM POSTAL SORTING OFFICER): Probably missed 1-2 doses of tacrolimus and [...] daily Assessment & Plan (11/28/2019 10:27 AM POSTAL SORTING OFFICER): Prednisone decreased to 20 mg daily Assessment & Plan (11/27/2019 1:32 PM POSTAL SORTING OFFICER): Prednisone decreased to 20 mg daily Assessment & Plan (11/26/2019 5:31 PM POSTAL SORTING OFFICER): Plan to taper prednisone to 20 mg daily Assessment & Plan (11/25/2019 4:49 PM POSTAL SORTING OFFICER): He is on prednisone 20 mg BID Assessment & Plan (11/24/2019 4:54 PM POSTAL SORTING OFFICER): He is on prednisone 20 mg BID Assessment & Plan (11/23/2019 2:01 PM POSTAL SORTING OFFICER): Starting on prednisone 20 twice daily today Assessment & Plan (11/27/2019 12:13 PM POSTAL SORTING OFFICER): Continue cellcept 1 g BID and tacrolimus [...] 3x/weekly Assessment & Plan (11/24/2018 11:50 AM POSTAL SORTING OFFICER): cGVHD of eyes, mouth, 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 -Cont pred 10 mg BID, MMF 1g BID, tacrolimus 0.5 mg QOD. -F/u tac trough (due 1/8 AM). Osteopenia 11/27/2011 Assessment & Plan (01/15/2020 3:23 PM POSTAL SORTING OFFICER): -DEXA scan done 07/2019 revealed stable BMD -will continue vitamin D supplementation and dietary calcium Assessment & Plan (11/20/2019 3:55 PM POSTAL SORTING OFFICER): Continue home vitamin D and dietary calcium [...] 04/02/20242024 Assessment & Plan (12/31/2024 5:44 PM POSTAL SORTING OFFICER): 2/ decreased po intake. Resolved with fluids. Sepsis due to pneumonia 03/28/202412/19 Assessment & Plan (12/30/2024 5:09 PM POSTAL SORTING OFFICER): -sputum culture from (12/23) grew Klebsiella - [...] 01/02/2025 Assessment & Plan (01/02/2025 6:21 PM POSTAL SORTING OFFICER): Markedly elevated on 12/15 at OSH AST [...] materials from doctor or pharmacy Sometimes 01/22/2025 [facility] Utilities Answer Date Recorded In the [...] often do you attend chur ch or islam services? Never 12/19/2024 Do you belong to [...] any time in the past 12 m [facility], were you homeless or living in a alf (including now)? No 12/19/2024 Personal Safety Answer Date Recorded Have you ever been in or are you currently in a harmful physical or emotional relationship or is someone making you feel afraid or unsafe? Denies 12/18/2024 Sex and Gender Information Value Date Recorded Sex Assigned at Not on file Legal Sex Male 10:48 AM POSTAL SORTING OFFICER Gender Identity Not on file Sexual Orientation Not on file Last Filed Vital Signs Vital Sign Reading Time Taken Comments Blood Pressure 102/66 01/10/2025 9:35 AM POSTAL SORTING OFFICER Pulse 55 01/10/2025 9:35 AM POSTAL SORTING OFFICER Temperature 36.8 C (98.2 F) 01/10/2025 9:35 AM POSTAL SORTING OFFICER Respiratory Rate 18 01/10/2025 9:35 AM POSTAL SORTING OFFICER Oxygen Saturation 94% 01/10/2025 9:35 AM POSTAL SORTING OFFICER 5L Inhaled Oxygen Concentration - - Weight 60.7 kg (133 lb 13.1 oz) 01/01/2025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
--- OUTSIDE RECORDS SUMMARY | 2025-04-20 21:13 | XMS_ITS | Encounter Summary ---
Author Organization [facility] Address [address] [place] [address] Phone Care Team Providers Care Principal Software Engineer Name Role Phone Josué Del Valle MD PhD Unavailable [phone] Kirt Lindsay DO Primary Care Provider [phone] Cal Carranza DO Unavailable [phone] Halie Khan MD Unavailable [phone] Wilfred Kinsey MD Unavailable Encounter Details Date Type Department Care Team (Late st Contact Info) Description 03/06/2024 Telephone [facility] Oncology [address] [facility] 7th [place] [address] Irina Conrad Social History Tobacco [...] any clubs o r organizations such as episcopalian groups, unions, fraternal or athletic groups, or [...] slept in a residential (including now)? No 02/20/2024 Personal Safety Answer Date Recorded Have you ever been in or are you currently in a harmful physical or emotional relationship or is someone making you feel afraid or unsafe? 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 Male 10:48 AM PILATES INSTRUCTOR Gender Identity Not on file Sexual [...] CDT 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 12/16/2024 3:05 AM PILATES INSTRUCTOR COVID: Suspected 07/23/2024 07/24/2024 07/24/2024 4:49 AM CDT COVID: Suspected 12/18/2024 12/18/2024 12/18/2024 10:17 PM PILATES INSTRUCTOR C. difficile suspected 12/22/2024 12/23/202412/23 5:56 AM PILATES INSTRUCTOR VRE Comment:Contact Precautions (gown and gloves) - Vladimir BURRELL, RN 01/06/25 12/23/2024 12/23/2024 documented as of this encounter Care Teams Principal Software Engineer Relationship Specialty Start Date End Date Kirt Lindsay DO PCP - General Internal Medicine 02/02/21 Josué Del Valle MD PhD Medical Oncologist/Freight Handler Medical Oncology 08/26/19 Cal Carranza DO [address] [address] Inward Toll Operator Internal Medicine 06/12/23 Halie Khan MD [address] [address] Lobby Porter Critical Care Med 06/12/23 Wilfred Kinsey MD [address] [address] Consulting Physician Gastroenterology 03/02/24 documented as of this encounter
--- OUTSIDE RECORDS SUMMARY | 2025-04-20 21:13 | XMS_ITS | Clinical Summary ---
Author Organization [facility] Address [address] [facility] [place] [address] Care Team Providers Care Convenience Recycle Center Tech Name Role Phone Fiorella Moyer MD Primary Care Provider [phone] Source Comments [facility] Conjecta,non-owned Affiliates and Associated Physician Practices is amultiple site organization consisting of ambulatory clinics and hospital sitesin [place], [place], [place] and [place]. This disclosure is being madepursuant to the Care Everywhere program and may not contain all information available regarding this patient. Last updated 18.[facility] Conjecta Encounters Date Type Department Care Team Description 02/16/[address] [facility] - Pathology Lab [address] [place] [address] Martín Hawkins MD Illness, unspecified from Last 3 Months Social History Tobacco Use Types Packs/Day Years Used Date Smoking Tobacco: Never Assessed Sex and Gender Information Value Date Recorded Sex Assigned at Not on file Legal Sex Male 10:29 AM RECOVERY ROOM NURSE Gender Identity Not on file Sexual Orientation Not on file Plan of Treatment Health Maintenance Due Date Last Done Comments COLOGUARD (AGES 45-75) - COL ON CA SCREENING 1966 COLON MONITORING 1966 COLONOSCOPY - COLON CA SCREENING 1966 CT COLONOGRAPHY - COLON CA SCREENING 1966 Colorectal Cancer Screening 1966 FIT - COLON CA SCREENING 1966 FLEX SIG - COLON CA SCREENING 1966 LIPID TESTING 1966 HIV SCREENING 1981 HEPATITIS C SCREENING 10/22/1984 DTAP/TDAP/TD VACCINES (1 - Tdap) 1985 HEPATITIS B VACCINE (1 of 3 - 19+ 3-dose series) 1985 PNEUMOCOCCAL VACCINE 50+ (1 of 1 - PCV) 2016 ZOSTER VACCINE (1 of 2) 2016 COVID-19 VACCINE (2023-2 5 season) 2024 DEPRESSION SCREENING 11/18/2024 MEDICARE AWV CALENDAR YEAR 2024 INFLUENZA VACCINE (Season Ended) 2025 HIB VACCINE Aged Out No longer eligi ble based on patient's age to complete this topic HPV VACCINE Aged Out No longer eligi ble based on patient's age to complete this topic MENINGOCOCCAL (Group B) VACC INE SHARED DECISION-MAKING Aged Out No longer eligibl e based on patient's age to complete this topic MENINGOCOCCAL GROUPS A/C/Y/W VACCINE Aged Out No longer eligible b ased on patient's age to complete this topic Insurance MEDICARE MEDICAID - OUT OF STATE [employer] MANAGED MEDICARE ADV SELF PAY NO INSURANCE Member Subscriber Plan / Payer (Ef fective for All Dates) Name:Brady Jones Member ID:Not on file Relation to Subscriber:Not on file Name:BRADY JONES Subscriber ID:Not on file (Home) Address: [address] [place] [address] Payer ID:Not on file Group ID:Not on file Type:Self Pay Address: [facility] MANAGED MEDICARE ADV Care Teams Convenience Recycle Center Tech Relationship Specialty Start Date End Date Fiorella Moyer MD [address] [facility] [address] [place] [address] PCP - General 01/04/20
--- OUTSIDE RECORDS SUMMARY | 2025-04-20 21:13 | XMS_ITS | Encounter Summary ---
Author Organization [facility] Address [address] [facility] [address] [place] [address] Phone Care Team Providers Care Data Abstractor Name Role Phone Josué Del Valle MD PhD Unavailable [phone] Kirt Lindsay DO Primary Care Provider [phone] Cal Carranza DO Unavailable [phone] Halie Khan MD Unavailable [phone] Wilfred Kinsey MD Unavailable Encounter Details Date Type Department Care Team (Late st Contact Info) Description 08/12/2024 Telephone [facility] Care Scheduling [address] [place] [address] Irina Conrad Social History Tobacco Use Types Packs/Day Years Used Date Smoking Tobacco: Some Days Cigarettes 0.5 40.8 Started: 1985 Smokeless Tobacco: Never Comments:pt states tried to quit; smoking 5 cigs/wk [facility] Utilities Answer Date Recorded In [...] week 07/24/2024 How often do you attend baptist or tenriism serv ices? Never 07/24/2024 Do you belong to any clubs o r organizations such as baptist groups, unions, fraternal or athletic groups, or [...] any time in the past 12 m [facility], were you homeless or [...] on file Legal Sex Male 10:48 AM X RAY EQUIPMENT MECHANIC Gender Identity Not on file Sexual Orientation Not on file documented as of this encounter Plan of Treatment Not on file documented as of this encounter Visit Diagnoses Not on filedocumented in this encounter Additional Health Concerns Infection Onset Date 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 12/16/2024 3:05 AM X RAY EQUIPMENT MECHANIC COVID: Suspected 12/18/2024 12/18/2024 12/18/2024 10:17 PM X RAY EQUIPMENT MECHANIC C. difficile suspected 12/22/2024 12/23/202412/23 5:56 AM X RAY EQUIPMENT MECHANIC VRE Comment:Contact Precautions (gown and gloves) - Vladimir HAMILTONN, RN 01/06/25 12/23/2024 12/23/2024 documented as of this encounter Care Teams Data Abstractor Relationship Specialty Start Date End Date Kirt Lindsay DO PCP - General Internal Medicine 02/02/21 Josué Del Valle MD PhD Medical Oncologist/Grommet Machine Operator Medical Oncology 08/26/19 Cal Carranza DO [address] [facility] [address] [place] [address] Build Manager Internal Medicine 06/12/23 Halie Khan MD [address] [facility] [address] [place] [address] Medical Insurance Coding Specialist Critical Care Med 06/12/23 Wilfred Kinsey MD [address] [address] Consulting Physician Gastroenterology 03/02/24 documented as of this encounter
--- OUTSIDE RECORDS SUMMARY | 2025-04-20 21:13 | XMS_ITS | Encounter Summary ---
Author Organization [facility] Address [address] [place] [address] Phone Care Team Providers Care Nuclear Instructor Name Role Phone Kirt Lindsay DO Primary Care Provider [phone] Josué Del Valle MD PhD Unavailable [phone] Halie Khan MD Primary Care Provider [phone] Kirt Lindsay DO Primary Care Provider + [phone] Tay Charlton MD Unavailable [phone] Halie Khan MD Unavailable [phone] StarksAnt goldman MD Unavailable [phone] Dillon Calreed Dorado DO Unavailable [phone] Halie Khan MD Unavailable [phone] Wilfred Kinsey MD Unavailable Encounter Details Date Type Department Care Team (Latest Contact Info) Description 11/27/2017 Orders Only [facility] CONVERSION Scanning, Provider Social History Tobacco Use Types Packs/Day Years Used Date Smoking Tobacco: Never Assessed Sex and Gender Information Value Date Recorded Sex Assigned at Not on file Legal Sex Male 10:48 AM INDOOR LANDSCAPE ARCHITECT Gender Identity Not on file Sexual Orientation Not on file documented as of this encounter Plan of Treatment Not on file documented as of this encounter Procedures Procedure Name Priority Date/Time Associated Diagnosis Comments VASCULAR LABORATORY REPORT 11/27/2017 4:04 PM INDOOR LANDSCAPE ARCHITECT VASCULAR LABORATORY REPORT 11/27/2017 4:04 PM INDOOR LANDSCAPE ARCHITECT documented in this encounter Results * VASCULAR LABORATORY REPORT (11/27/2017 4:04 PM INDOOR LANDSCAPE ARCHITECT) Anatomical Region Laterality Modality Ultrasound us Provider Scanning CV VASCULAR PROCEDURES Final R esult * VASCULAR LABORATORY REPORT (11/27/2017 4:04 PM INDOOR LANDSCAPE ARCHITECT) Anatomical Region Laterality Modality Ultrasound us Provider [...] Comment:06/18/2024 IP Review: case reviewed by IP [facility], ok to come off precautions. Lissy Johnson, RN +AFB stain 06/17/2024 06/17/2024 06/18/2024 10:45 AM CDT C. 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 12/16/2024 3:05 AM INDOOR LANDSCAPE ARCHITECT COVID: Suspected 07/23/2024 07/24/2024 07/24/2024 4:49 AM CDT COVID: Suspected 12/18/2024 12/18/2024 12/18/2024 10:17 PM INDOOR LANDSCAPE ARCHITECT C. difficile suspected 12/22/2024 12/23/202412/23 5:56 AM INDOOR LANDSCAPE ARCHITECT VRE Comment:Contact Precautions (gown and gloves) - Vladimir BURRELL RN 01/06/25 12/23/2024 12/23/2024 documented as of this encounter Care Teams Nuclear Instructor Relationship Specialty Start Date End Date Kirt Lindsay DO PCP - General 05/02/17 11/22/20 Halie Khan MD [address] [address] PCP - General Critical Care Med 11/23/20 02/01/21 Kirt Lindsay DO PCP - General Internal Medicine 02/02/21 Josué Del Valle MD PhD Medical Oncologist/Car Usher Medical Oncology 08/26/19 Tay Charlton MD [address] [place] [id number] Consulting Physician Gastroenterology 12/03/21 06/11/23 Halie Khan MD [address] [facility] [address] [place] [address] Consulting Physician Pulmonary Disease 12/12/21 3 Ant Starks MD [address] [facility] [address] [place] [address] Consulting Physician Transplant Hepatology 01/12/22 Cal Carranza DO [address] [facility] [address] [place] [address] Wastewater Superintendent Internal Medicine 06/12/23 Halie Khan MD [address] [facility] [address] [place] [address] Adolescent Specialist Critical Care Med 06/12/23 Wilfred Kinsey MD [address] [address] Consulting Physician Gastroenterology 03/02/24 documented as of this encounter
--- OUTSIDE RECORDS SUMMARY | 2025-04-20 21:13 | XMS_ITS | Encounter Summary ---
Author Organization [facility] Address [address] [facility] [place] [address] Care Team Providers Care Tobacco Hanger Name Role Phone Fiorella Moyer MD Primary Care Provider [phone] Encounter Details Date Type Department Care Team (Late st Contact Info) Description 02/16/2025 Lab Requisition [facility] - Pathology Lab [address] [place] [address] Martín Hawkins MD [address] [address] Illness, unspecified Social History Tobacco Use Types Packs/Day Years Used Date Smoking Tobacco: Never Assessed Sex and Gender Information Value Date Recorded Sex Assigned at Not on file Legal Sex Male 10:29 AM OPTIMIZATION SPECIALIST Gender Identity Not on file Sexual Orientation Not on file documented as of this encounter Plan of Treatment Pending Results Name Type Priority Associated Diagnoses Date /Time SLIDE PREP HISTOLOGY Pathology Cytology Routine Illness, unspecified 02/10/2025 documented as of this encounter Visit Diagnoses Diagnosis Illness, unspecified documented in this encounter Care Teams Tobacco Hanger Relationship Specialty Start Date End Date Fiorella Moyer MD [address] [place] [address] [address] [place] [address] PCP - General 01/04/20 documented as of this encounter
--- OUTSIDE RECORDS SUMMARY | 2025-04-20 21:13 | XMS_ITS | CONTINUITY OF CARE DOCUMENT ---
Author Name arturo morris Address Unknown Organization [facility] Address [address] [facility] [address] [place] [address] Phone [phone] Care Team Providers Care Scourer Name Role Phone Thuy Daugherty MD Unavailable Thuy Daugherty MD Unavailable [phone] INSURANCE PROVIDERS Payer name Policy type / Coverage type [place] red green party ID [facility] DUAL COMPLETE (HMO-POS) [facility] [id number]
--- OUTSIDE RECORDS SUMMARY | 2025-04-20 21:13 | XMS_ITS | Encounter Summary ---
Author Organization [facility] Address [address] [place] [address] Phone Care Team Providers Care Automobile Painter Name Role Phone Kirt Lindsay DO Primary Care Provider +- [phone] Josué Del Valle MD PhD Unavailable [phone] Halie Khan MD Primary Care Provider [phone] Kirt Lindsay DO Primary Care Provider + [phone] Tay Charlton MD Unavailable [phone] Halie Khan MD Unavailable [phone] StarksAnt goldman MD Unavailable [phone]- [phone] Dillon Calreed Dorado DO Unavailable [phone] Halie Khan MD Unavailable [phone] Wilfred Kinsey MD Unavailable Encounter Details Date [...] file Legal Sex Male 10:48 AM WIRE DRAWING DIE MAKER Gender Identity Not on file [...] Comment:06/18/2024 IP Review: case reviewed by IP [facility], ok to come off precautions. Lissy Johnson RN +AFB stain 06/17/2024 06/17/2024 06/18/2024 10:45 AM CDT C. 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 12/16/2024 3:05 AM WIRE DRAWING DIE MAKER COVID: Suspected 07/23/2024 07/24/2024 07/24/2024 4:49 AM CDT COVID: Suspected 12/18/2024 12/18/2024 12/18/2024 10:17 PM WIRE DRAWING DIE MAKER C. difficile suspected 12/22/2024 12/23/202412/23 5:56 AM WIRE DRAWING DIE MAKER VRE Comment:Contact Precautions (gown and gloves) - Vladimir BURRELL, RN 01/06/25 12/23/2024 12/23/2024 documented as of this encounter Care Teams Automobile Painter Relationship Specialty Start Date End Date Kirt Lindsay DO PCP - General 05/02/17 11/22/20 Halie Khan MD [address] [place] [address] PCP - General Critical Care Med 11/23/20 02/01/21 Kirt Lindsay DO PCP - General Internal Medicine 02/02/21 Josué Del Valle MD PhD Medical Oncologist/Customer Experience Specialist Medical Oncology 08/26/19 Tay Charlton MD [address] [address] Consulting Physician Gastroenterology 12/03/21 06/11/23 Halie Khan MD [address] [address] Consulting Physician Pulmonary Disease 12/12/21 3 Ant Starks MD [address] [place] [address] Consulting Physician Transplant Hepatology 01/12/22 Cal Carranza DO [address] [address] Frame Coverer Internal Medicine 06/12/23 Halie Khan MD [address] [address] Magneto Specialist Critical Care Med 06/12/23 Wilfred Kinsey MD [address] [address] Consulting Physician Gastroenterology 03/02/24 documented as of this encounter
--- OUTSIDE RECORDS SUMMARY | 2025-04-20 21:13 | XMS_ITS | Encounter Summary ---
Author Organization [facility] Address [address] [place] [address] Phone Care Team Providers Care Cooling Tower Technician Name Role Phone Josué Del Valle MD PhD Unavailable [phone] Kirt Lindsay DO Primary Care Provider [phone] Tay Charlton MD Unavailable [phone] Halie Khan MD Unavailable [phone] Ant Starks MD Unavailable [phone] Cal Carranza DO Unavailable [phone] Halie Khan MD Unavailable [phone] Wilfred Kinsey MD Unavailable Encounter Details Date Type Department Care Team (Late st Contact Info) Description 05/18/2021 Telephone [facility] Transplant [address] 7th Floor, [place] [address] Melody Bolanos V. Social History Tobacco Use Types Packs/Day Years Used Date Smoking Tobacco: Every Day Cigarettes 0.3 39.4 Started: 1985 Smokeless Tobacco: Never Sex and Gender Information Value Date Recorded Sex Assigned at Not on file Legal Sex Male 10:48 AM FACILITY EXAMINER Gender Identity Not on file Sexual [...] Review: case reviewed by IP [facility], md to come off precautions. Lissy Johnson RN +AFB stain 06/17/2024 06/17/2024 06/18/2024 10:45 AM CDT C. 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 12/16/2024 3:05 AM FACILITY EXAMINER COVID: Suspected 07/23/2024 07/24/2024 07/24/2024 4:49 AM CDT COVID: Suspected 12/18/2024 12/18/2024 12/18/2024 10:17 PM FACILITY EXAMINER C. difficile suspected 12/22/2024 12/23/202412/23 5:56 AM FACILITY EXAMINER VRE Comment:Contact Precautions (gown and gloves) - Vladimir BURRELL, RN 01/06/25 12/23/2024 12/23/2024 documented as of this encounter Care Teams Cooling Tower Technician Relationship Specialty Start Date End Date Kirt Lindsay DO PCP - General Internal Medicine 02/02/21 Josué Del Valle MD PhD Medical Oncologist/Special Agent Medical Oncology 08/26/19 Tay Charlton MD Consulting Physician Gastroenterology 12/03/21 06/11/23 Halie Khan MD [address] [address] Consulting Physician Pulmonary Disease 12/12/21 3 Ant Starks MD [address] [address] Consulting Physician Transplant Hepatology 01/12/22 Cal Carranza DO [address] [address] Refining Supervisor Internal Medicine 06/12/23 Halie Khan MD [address] [address] Retail Seasonal Specialist Critical Care Med 06/12/23 Wilfred Kinsey MD [address] [address] Consulting Physician Gastroenterology 03/02/24 documented as of this encounter
--- OUTSIDE RECORDS SUMMARY | 2025-04-20 21:13 | XMS_ITS ---
Author Organization [facility] Address [address] [place] [address] Care Team Providers Care Foundry Patternmaker Name Role Phone Josué Del Valle MD PhD Unavailable [phone] Kirt Lindsay DO Primary Care Provider [phone] Cal Carranza DO Unavailable [phone] Halie Khan MD Unavailable [phone] Wilfred Kinsey MD Unavailable Active Problems Patient Care Coordination No te Formatting of this note is d ifferent from the original. BMT Inpatient Care Coordination Overview Diagnosis AML Floor [address] Treatment Plan Clinical Trial Reason for Admission From OSH for sepsis and elevated LFTs Transplant/IEC Planning BMT/IEC Plan S/p sib allo 11/09/2009- gvhd to eyes HLA typing/IDMs Insurance Approvals/Issues Discharge Planning Anticipated Discharge Date 12/23/24 Patient Education Completed Issue to be Resolved Before Discharge Discharge Disposition Home Requests Sent to Case Management and/or Medical Assistants Post-Discharge Follow-Up Living Situation/Distance from [place], [place] (local) - 30 min Caregiver Lab/Transfusion Frequency Phone: Fax: Venous Access & Care peripheral Local Oncologist Contact Phone: Fax: Post-Discharge Office Visit (H30) JFD - 01/06 w/ PRINTING EQUIPMENT MECHANIC APPRENTICE Jame TREJO - Sometimes no-shows for appts Miscellaneous Notes: Problem Noted Date Diagnosed Date Macrocytic anemia 01/02/2025 Assessment & Plan (01/02/2025 6:23 PM TINWARE LITHOGRAPH PRESS OPERATOR): Likely secondary to COPD. vitamin B12, folic acid wNL. Epigastric pain 01/02/2025 Assessment & Plan (01/02/2025 6:25 PM TINWARE LITHOGRAPH PRESS OPERATOR): 2/2 esophageal ulcers. PPI BID Karafate Oxycodone 10 mg q6hprn. Avoid NSAID. Chronic hypoxic respiratory failure 12/28/2024 Assessment & Plan (12/28/2024 7:07 PM TINWARE LITHOGRAPH PRESS OPERATOR): 2/2 copd. Stable oxygen requirement. Continue inhaled therapies and supplemental o2. Ulcer of esophagus without bleeding 12/25/2024 Assessment & Plan (01/01/2025 4:00 PM TINWARE LITHOGRAPH PRESS OPERATOR): EGD 01/01/25 Esophageal ulcers with no stigmata of recent bleeding. Linear ulcers had mild spontaneous oozing. Biopsied and sent for CMV, HSV and MAC. Continue BID PPI for 8 weeks, continue karafate. Needs repeat EGD in 8 weeks to confirm healing. Biopsy needs to be followed. Hb stable. Other pulmonary embolism without acute cor pulmo nale 12/19/2024 Assessment & Plan (01/01/2025 4:21 PM TINWARE LITHOGRAPH PRESS OPERATOR): History of DVT 2012, 2018, PE in 2012. He takes Xarelto at home which was held for EGD. Since remote h/o PE/DVT, will not discharge on xarelto due to multiple esophageal ulcers and risk of bleeding. Moderate protein-calorie malnutrition 11/30/2024 Assessment & Plan (01/01/2025 4:21 PM TINWARE LITHOGRAPH PRESS OPERATOR): Supplement of choice tid w meals. Assessment & Plan (11/30/2024 8:14 AM TINWARE LITHOGRAPH PRESS OPERATOR): Diagnosed by RD per ASPEN criteria. Malnutrition can delay patient's recover from his infection. 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 On triple regimen recommended by ID. 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 Assessment & Plan (11/17/2024 12:20 PM TINWARE LITHOGRAPH PRESS OPERATOR): Involving the eyes and the lungs - MMF 1 g b.i.d., tacro 0.5 every other day, and he is on prednisone only when he has wheezing or sob- 20mg a day -Tac level /TH. Coronary artery disease invo lving mary's igloo coronary artery of mary's igloo heart without angina pectoris 11/16/2024 Assessment & Plan (01/01/2025 4:18 PM TINWARE LITHOGRAPH PRESS OPERATOR): Continue Plavix (held for procedure) Holding statin due to elevated LFT 08/11- EF 30%, Global hypokinesis Resume toprol 12.5 mg from 01/02/25. Resume plavix from 01/02/25. Assessment & Plan (11/28/2024 1:53 PM TINWARE LITHOGRAPH PRESS OPERATOR): Hx of STEMI s/p PCI to RCA 2022 -Continue home plavix 75 mg daily, atorvastatin Assessment & Plan (11/18/2024 10:42 AM TINWARE LITHOGRAPH PRESS OPERATOR): S/p PCI to RCA in 2022 [...] for 4d of worsening SOB. Presented to [facility] ED 07/19 for SOB and treated for COPD exac with pred course. Presented to [place] on 07/21 for worsening SOB. CXR and [...] infection Assessment & Plan (12/28/2024 7:14 PM TINWARE LITHOGRAPH PRESS OPERATOR): Follows up with ID for history of nontuberculous mycobacterial infection. - Transplant ID consulted - restarted azithromcyin and ethambutol on 12/21. Defer clofazimine for at least 1 week following resolution of transaminitis Assessment & Plan (11/17/2024 12:22 PM TINWARE LITHOGRAPH PRESS OPERATOR): Follows with ID; last seen in [...] now with expectation of submitting this to [facility] lab on ~07/13. Beginning empiric [...] 06/16/2024 Assessment & Plan (11/17/2024 12:22 PM TINWARE LITHOGRAPH PRESS OPERATOR): RD following Assessment & Plan (07/24/2024 [...] 06/15/2024 Assessment & Plan (12/19/2024 12:50 AM TINWARE LITHOGRAPH PRESS OPERATOR): On chronic oxygen therapy with 3 L nasal cannula during daytime, 5 L nasal cannula during night time Smokes cigarettes occasionally, uses nicotine patches at home Continue montelukast, Trelegy Ellipta inhaler, DuoNebs p.r.n. Assessment & Plan (11/28/2024 4:11 PM TINWARE LITHOGRAPH PRESS OPERATOR): Last PFT 08/15/23: FEV1 35% predicted. [...] 02/20/2024 Assessment & Plan (12/23/2024 11:51 AM TINWARE LITHOGRAPH PRESS OPERATOR): -History of Kovacs's esophagus next and endoscopy was on 16 of November showed food in middle 3rd of esophagus, stasis esophagitis in the mid esophagus. Path showed Cardia-type gastric mucosa with intestinal metaplasia. -Gi consulted, recommended outpatient follow up for EGD. Kovacs's esophagus without dysplasia 02/20/2024 Assessment & Plan (01/01/2025 4:01 PM TINWARE LITHOGRAPH PRESS OPERATOR): EGD 11/16 showed food in middle 3rd of esophagus, stasis esophagitis in the mid esophagus. 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 -Continue carafate 1g bid, PPI bid. - benign esophageal stenosis seen in EGD onn 01/01/25. Dilated to 18 mm. -Repeat EGD 2 months from 01/01. Assessment & Plan (11/28/2024 4:10 PM TINWARE LITHOGRAPH PRESS OPERATOR): Admitted recently due to food stuck at chest. EGD 11/16 showed food in middle 3rd of esophagus, stasis esophagitis in the mid esophagus. 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 -Continue carafate 1g bid, PPI bid. -Repeat EGD 3 months from 11/17 Assessment & Plan (11/18/2024 10:43 AM TINWARE LITHOGRAPH PRESS OPERATOR): After eating chicken/spaghetti on 11/14 felt [...] 02/13/2022 Assessment & Plan (12/01/2024 12:17 PM TINWARE LITHOGRAPH PRESS OPERATOR): Patient reports symptom of chest tightness. CT at OSH showed new infiltrate at left upper lobe. Has know cavitary lung lesion from July. Previously on amikacin but was held due to elevated creatinine. Suspect that CAP is the main refuse driver of patient's symptoms. May have some [...] disease) Assessment & Plan (11/17/2024 12:17 PM TINWARE LITHOGRAPH PRESS OPERATOR): He has Ventolin inhaler, Trelegy inhaler, albuterol inhaler, and Singulair 10 a day. On 3L oxygen at home Biliary sludge 12/20/2021 Overview (12/20/2021): Added automatically from request for surgery [id number] Other osteoporosis without current pathological fracture 11/23/2021 Encounter for removal of biliary stent Overview (10/03/2021): Added automatically from request for surgery [id number] History of DVT (deep vein thrombosis) 09/08/2021 [...] (09/07/2021): Added automatically from request for surgery [id number] Assessment & Plan (07/25/2024 12:01 PM CDT): - Recent hx pancreatitis admission without obvious source. Pain was slowly recurring in the last few days. Lipase was WNL at LFTs wnl at OSH and wnl on repeat here. Improving. - Pain control. - Tolerating mechanical soft diet Upper GI bleed 09/07/2021 Overview (09/07/2021): Added automatically from request for surgery [id number] Assessment & Plan (09/10/2021 9:18 AM CDT): [...] (03/30/2021): Added automatically from request for surgery [id number] Assessment & Plan (08/09/2021 10:27 AM CDT): [...] (06/16-06/20) Assessment & Plan (11/26/2019 10:45 AM TINWARE LITHOGRAPH PRESS OPERATOR): POA. Possibly community-acquired and/or 2/[address] Strep pneumoniae pos sputum cx. See SOB problem. Shortness of breath 11/20/2019 Assessment & Plan (11/27/2019 12:14 PM TINWARE LITHOGRAPH PRESS OPERATOR): Concern for poss GVHD and/or poss [...] 11/20/2019 Assessment & Plan (11/28/2024 3:54 PM TINWARE LITHOGRAPH PRESS OPERATOR): Echo 11/24 at OSH: LVEF 40-45% wit hinferior akinesis, similar to EF in 2022, mild MR -Continue home metoprolol 12.5 mg daily, jardiance 10 mg daily Assessment & Plan (11/16/2024 3:06 AM TINWARE LITHOGRAPH PRESS OPERATOR): Euvolemic on exam currently; no new SOB - continue metop, jardiance Assessment & Plan (07/26/2024 11:49 AM CDT): TTE 03/2024 with LVEF 50-55%. Pro BNP at OSH >30k. Last adm here 1012. Appears euvolemic. S/p Lasix at OSH and [place] [address] - repeat TTE 07/24: LVEF 30%, moderate [...] 1012 Assessment & Plan (11/28/2019 10:27 AM TINWARE LITHOGRAPH PRESS OPERATOR): Closely monitor blood sugar to avoid hypoglycemia Assessment & Plan (11/27/2019 1:35 PM TINWARE LITHOGRAPH PRESS OPERATOR): Closely monitor blood sugar to avoid hypoglycemia Assessment & Plan (11/26/2019 5:32 PM TINWARE LITHOGRAPH PRESS OPERATOR): Closely monitor blood sugar to avoid hypoglycemia Assessment & Plan (11/25/2019 4:51 PM TINWARE LITHOGRAPH PRESS OPERATOR): Closely monitor blood sugar to avoid hypoglycemia Assessment & Plan (11/24/2019 4:57 PM TINWARE LITHOGRAPH PRESS OPERATOR): Closely monitor blood sugar to avoid hypoglycemia Assessment & Plan (11/23/2019 2:01 PM TINWARE LITHOGRAPH PRESS OPERATOR): Closely monitor blood sugar to avoid hypoglycemia Assessment & Plan (11/24/2019 10:51 AM TINWARE LITHOGRAPH PRESS OPERATOR): With diastolic dysfunction, new diagnosis. -Continue [...] TID Assessment & Plan (11/20/2019 4:17 PM TINWARE LITHOGRAPH PRESS OPERATOR): Continue gabapentin Tobacco abuse 11/20/2019 Assessment & Plan (06/16/2024 6:44 PM CDT): Encourage cessation Assessment & Plan (11/20/2019 4:18 PM TINWARE LITHOGRAPH PRESS OPERATOR): Nicotine patch Depressed mood 11/24/2018 Assessment & Plan (11/24/2018 4:56 PM TINWARE LITHOGRAPH PRESS OPERATOR): With feelings of depressed mood prior to admission. Outpt team with concerns for pt's wellbeing as he was more noncompliant and down over the phone prior to admit. -Consulted [facility] counseling 11/24, will plan to see him on AM of 11/25 at 0900. -Also consulted psychiatry, but felt that counseling service was appropriate first step and would only see him if they recommended pharm therapy. DVT (deep venous thrombosis) 11/23/2018 Assessment & Plan (11/28/2024 1:53 PM TINWARE LITHOGRAPH PRESS OPERATOR): Hx of PE in 2012, DVT IJ 2017 -Continue home xarelto 20 mg dialy Assessment & Plan (11/18/2024 10:42 AM TINWARE LITHOGRAPH PRESS OPERATOR): DVT lower ext 2012, DVT IJ [...] Xeralto Assessment & Plan (11/20/2019 3:57 PM TINWARE LITHOGRAPH PRESS OPERATOR): Continue xarelto Assessment & Plan (11/23/2018 11:32 AM TINWARE LITHOGRAPH PRESS OPERATOR): Cont Xarelto. Sinusitis 11/22/2018 Assessment & Plan (11/24/2018 4:48 PM TINWARE LITHOGRAPH PRESS OPERATOR): Chronic issue over last 2 months. [...] shows no PE-->no pneumonia. COPD with exacerbation ([facility]) 11/22/2018 Assessment & Plan (07/24/2024 1:00 PM [...] exertion Assessment & Plan (11/20/2019 4:16 PM TINWARE LITHOGRAPH PRESS OPERATOR): Continue inhalers Assessment & Plan (11/23/2018 11:29 AM TINWARE LITHOGRAPH PRESS OPERATOR): Continues to smoke >1 ppd. -Cont steroids at current dose. -Cont Advair diskus BID, cont albuterol inh QID. -Encourage smoking cessation. Cont nicotine patch. Cough 10/17/2018 Pure hypercholesterolemia 08/04/2018 Assessment & Plan (02/12/2022 6:02 AM CDT): - continue home dose atorvastatin 40 mg PO daily Assessment & Plan (01/15/2020 3:22 PM TINWARE LITHOGRAPH PRESS OPERATOR): -LDL at goal -will continue atorvastatin 40 mg daily Assessment & Plan (11/28/2019 10:27 AM TINWARE LITHOGRAPH PRESS OPERATOR): On atorvastatin 40 mg daily Assessment & Plan (11/27/2019 1:35 PM TINWARE LITHOGRAPH PRESS OPERATOR): On atorvastatin 40 mg daily Assessment & Plan (11/26/2019 5:32 PM TINWARE LITHOGRAPH PRESS OPERATOR): On atorvastatin 40 mg daily Assessment & Plan (11/25/2019 4:50 PM TINWARE LITHOGRAPH PRESS OPERATOR): On atorvastatin 40 mg daily Assessment & Plan (11/24/2019 4:57 PM TINWARE LITHOGRAPH PRESS OPERATOR): On atorvastatin 40 mg daily Assessment & Plan (11/23/2019 2:02 PM TINWARE LITHOGRAPH PRESS OPERATOR): On atorvastatin 40 mg daily Assessment & Plan (11/20/2019 4:18 PM TINWARE LITHOGRAPH PRESS OPERATOR): Continue statin Assessment & Plan (08/07/2019 [...] level Assessment & Plan (01/15/2020 3:22 PM TINWARE LITHOGRAPH PRESS OPERATOR): -vitamin D levels still low, unclear compliance -will continue current regimen Assessment & Plan (11/28/2019 10:29 AM TINWARE LITHOGRAPH PRESS OPERATOR): Last vitamin-D level low at 16. Continue vitamin D2 94550 units weekly and vitamin D3 2000 units daily Assessment & Plan (11/27/2019 1:35 PM TINWARE LITHOGRAPH PRESS OPERATOR): Last vitamin-D level low at 16. Continue vitamin D2 90297 units weekly and vitamin D3 2000 units daily Assessment & Plan (11/26/2019 5:32 PM TINWARE LITHOGRAPH PRESS OPERATOR): Last vitamin-D level low at 16. Continue vitamin D2 21546 units weekly and vitamin D3 2000 units daily Assessment & Plan (11/25/2019 4:51 PM TINWARE LITHOGRAPH PRESS OPERATOR): Last vitamin-D level low at 16. Continue vitamin D2 17708 units weekly and vitamin D3 2000 units daily Assessment & Plan (11/24/2019 4:57 PM TINWARE LITHOGRAPH PRESS OPERATOR): Last vitamin-D level low at 16. Continue vitamin D2 25298 units weekly and vitamin D3 2000 units daily Assessment & Plan (11/23/2019 2:02 PM TINWARE LITHOGRAPH PRESS OPERATOR): Last vitamin-D level low at 16. Continue vitamin D2 48245 units weekly and vitamin D3 2000 units [...] 05/06/2018 Assessment & Plan (12/30/2024 4:24 PM TINWARE LITHOGRAPH PRESS OPERATOR): S/p 7+3 HIDAC consolidation * 3, decitabine maintenance on CALG 55195. Had relapse s/p AMD/MEC. 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 OI ppx: acv, Hold cresemba 2/2 transaminitis. Assessment & Plan (11/28/2024 1:55 PM TINWARE LITHOGRAPH PRESS OPERATOR): S/p 7+3 HIDAC consolidation * 3, decitabine maintenance on CALG 15[address]. Had relapse s/p AMD/MEC. 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 -OI ppx: acv, crsemba Assessment & Plan (11/18/2024 10:41 AM TINWARE LITHOGRAPH PRESS OPERATOR): AML. S/p 7+3 and hidac consolidation x3, decitabine maintenance on CALG 34023 protocol. Had relapse s/p AMD/MEC. 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 -Last seen by Dr. Del Valle 06/12/23, in remission - acyclovir 400 t.i.d and antifungal ppx with voriconazole vs cresemba. Plan med rec w Residential Aide today Assessment & Plan (06/17/2024 3:28 PM CDT): Follows Dr. Bauman, last seen in clinic on 06/09/2023 -AML diagnosed in 2008 s/p 7+3 and HiDAC consolidation x3 followed by Decitabine maintenance on the CALGB 95010 protocol. -Followed by Relapsed disease, status post [...] followed by Decitabine maintenance on the CALGB 62200 protocol. Followed by Relapsed disease, status post alloSCT sister 10/10 match D): 11/09/2009. 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 voriconazole 200 b.i.d Assessment & Plan (09/10/2021 9:20 AM CDT): -S/p Busulfan and Cytoxan on the [facility] allogeneic study with his sister, 10 match; with day 0 on 11/09/2009 after induction with 7+3 and HiDAC consolidation x3. Followed by Decitabine maintenance on the CALGB 88084 protocol and relapsed disease, status post AMD/MEC. - 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Most recent BMBx in our records is from 12/12/2017 with neg path and flow -OI prophylaxis, acyclovir Assessment & Plan (08/17/2021 3:45 PM CDT): S/p Busulfan and Cytoxan on the [facility] allogeneic study with his sister, 10 match; with day 0 on 11/09/2009 after induction with 7+3 and HiDAC consolidation x3. Followed by Decitabine maintenance on the CALGB 80670 protocol and relapsed disease, status post AMD/MEC. 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 - Relapsed disease, status post an [...] home). Assessment & Plan (11/23/2018 11:24 AM TINWARE LITHOGRAPH PRESS OPERATOR): -s/p sibling allo SCT on 11/09/09, now in CR with no e/o recurrence. 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 -Cont OI ppx with Bactrim, acyclovir. Controlled type 2 diabetes m darling without complication, with long-term current use of insulin 05/06/2018 Assessment & Plan (12/19/2024 12:54 AM TINWARE LITHOGRAPH PRESS OPERATOR): Continue home empagliflozin in the setting of HfrEF Sliding scale insulin Assessment & Plan (11/28/2024 1:56 PM TINWARE LITHOGRAPH PRESS OPERATOR): Last A1c 6.0 on 11/17/24 -SSI Assessment & Plan (11/18/2024 10:43 AM TINWARE LITHOGRAPH PRESS OPERATOR): On lantus/humalog at home (he reports [...] steroids Assessment & Plan (01/15/2020 3:24 PM TINWARE LITHOGRAPH PRESS OPERATOR): -poorly controlled, exacerbated by prednisone use [...] goal Assessment & Plan (11/28/2019 10:29 AM TINWARE LITHOGRAPH PRESS OPERATOR): Patient has uncontrolled type 2 diabetes [...] education. Assessment & Plan (11/27/2019 1:35 PM TINWARE LITHOGRAPH PRESS OPERATOR): Patient has uncontrolled type 2 diabetes [...] education. Assessment & Plan (11/26/2019 5:32 PM TINWARE LITHOGRAPH PRESS OPERATOR): Patient has uncontrolled type 2 diabetes [...] here. Assessment & Plan (11/25/2019 4:50 PM TINWARE LITHOGRAPH PRESS OPERATOR): Patient has uncontrolled type 2 diabetes [...] here. Assessment & Plan (11/24/2019 4:57 PM TINWARE LITHOGRAPH PRESS OPERATOR): Patient has uncontrolled type 2 diabetes [...] here. Assessment & Plan (11/23/2019 2:01 PM TINWARE LITHOGRAPH PRESS OPERATOR): Patient has uncontrolled type 2 diabetes [...] here. Assessment & Plan (11/28/2019 9:33 AM TINWARE LITHOGRAPH PRESS OPERATOR): On basaglar 30 units AM and [...] goal Assessment & Plan (11/24/2018 4:59 PM TINWARE LITHOGRAPH PRESS OPERATOR): -Poorly controlled, recently stopped checking glucose [...] needles and sent e-script to [facility] in [place] on 11/24. Pt has script for glucose [...] takes acyclovir and voriconazole for medical ppx Upqln-idllbh-dfwx disease 07/08/2012 Assessment & Plan (11/30/2024 3:25 PM TINWARE LITHOGRAPH PRESS OPERATOR): Probably missed 1-2 doses of tacrolimus [...] daily Assessment & Plan (11/28/2019 10:27 AM TINWARE LITHOGRAPH PRESS OPERATOR): Prednisone decreased to 20 mg daily Assessment & Plan (11/27/2019 1:32 PM TINWARE LITHOGRAPH PRESS OPERATOR): Prednisone decreased to 20 mg daily Assessment & Plan (11/26/2019 5:31 PM TINWARE LITHOGRAPH PRESS OPERATOR): Plan to taper prednisone to 20 mg daily Assessment & Plan (11/25/2019 4:49 PM TINWARE LITHOGRAPH PRESS OPERATOR): He is on prednisone 20 mg BID Assessment & Plan (11/24/2019 4:54 PM TINWARE LITHOGRAPH PRESS OPERATOR): He is on prednisone 20 mg BID Assessment & Plan (11/23/2019 2:01 PM TINWARE LITHOGRAPH PRESS OPERATOR): Starting on prednisone 20 twice daily today Assessment & Plan (11/27/2019 12:13 PM TINWARE LITHOGRAPH PRESS OPERATOR): Continue cellcept 1 g BID and tacrolimus [...] 3x/weekly Assessment & Plan (11/24/2018 11:50 AM TINWARE LITHOGRAPH PRESS OPERATOR): cGVHD of eyes, mouth, 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 -Cont pred 10 mg BID, MMF 1g BID, tacrolimus 0.5 mg QOD. -F/u tac trough (due 1/8 AM). Osteopenia 11/27/2011 Assessment & Plan (01/15/2020 3:23 PM TINWARE LITHOGRAPH PRESS OPERATOR): -DEXA scan done 07/2019 revealed stable BMD -will continue vitamin D supplementation and dietary calcium Assessment & Plan (11/20/2019 3:55 PM TINWARE LITHOGRAPH PRESS OPERATOR): Continue home vitamin D and dietary [...] MD Linked Problems Acute myeloid leukemia in [facility] (HCC) Treatment Medications No medications scheduled. Past [...] 04/02/20242024 Assessment & Plan (12/31/2024 5:44 PM TINWARE LITHOGRAPH PRESS OPERATOR): 12/20 decreased po intake. Resolved with fluids. Sepsis due to pneumonia 03/28/202412/19 Assessment & Plan (12/30/2024 5:09 PM TINWARE LITHOGRAPH PRESS OPERATOR): -sputum culture from (12/23) grew Klebsiella - [...] 01/02/2025 Assessment & Plan (01/02/2025 6:21 PM TINWARE LITHOGRAPH PRESS OPERATOR): Markedly elevated on 12/15 at OSH AST [...]
--- NOTE | 2025-04-20 21:22 | ED.SOB ---
HPI - SOB/Dyspnea General Chief Complaint: Shortness of Breath/Dyspnea Stated Complaint: SOB since 1100 Time Seen by Provider: 04/20/25 20:53 Source: patient and RN notes reviewed Mode of arrival: EMS Limitations: no limitations History of Present Illness HPI Narrative: Patient presents with report of shortness of breath starting at 11:00. Also complaining of difficulty swallowing which he states is new. Feels like the issue is under his sternum, not in neck. History of leukemia and COPD for which he is chronically on 5LPM O2. Having difficulty with solids and liquids, can't eat/drink. No new meds/foods/soap, no recent travel. Essentially bedridden at baseline. Took 2 albuterol nebulized treatments [employer] and with EMS 1 [facility]. Previously on anticoagulation due to platelets sticking together but not currently. Has had a little cough but deneis hemoptysis. No chest pain. No chronic cough. Denies fever but feels chilled. No edema. Smokes 1/4 PPD. No history of bipap or intubation for respiratory issues. Related Data Home Medications ?Medication ?Instructions ?Recorded ?Confirmed ?Last Taken ?Type rivaroxaban 20 mg tablet (Xarelto) 20 mg PO QAM 02/06/23 04/21/25 11/20/24 17:03 History 20 mg albuterol sulfate 90 mcg/actuation 1 puff inhalation Q4-6H PRN 10/23/24 04/21/25 11/19/24 16:00 History aerosol inhaler Shortness Of Breath Or Wheezing 1 puff ondansetron 4 mg disintegrating 4 mg PO Q8H PRN Nausea And Vomiting 10/23/24 04/21/25 11/20/24 17:04 History tablet 4 mg pantoprazole 40 mg tablet,delayed 40 mg PO Q12H 10/23/24 04/21/25 11/20/24 17:00 History release 40 mg isavuconazonium sulfate 186 mg 372 mg PO DAILY 11/25/24 04/21/25 Unknown History capsule (Cresemba) fluticasone fur. 200 mcg-umeclid 1 inh inhalation DAILY 02/04/25 04/21/25 Unknown History 62.5 mcg-vilant 25 mcg inhalat.powder (Trelegy Ellipta) gabapentin 300 mg capsule 300 mg PO QID 02/04/25 04/21/25 Unknown History atorvastatin 40 mg tablet 40 mg PO QPM 04/21/25 04/21/25 04/20/25 History Allergies Allergy/AdvReac Type Severity Reaction Status Date / Time adhesive tape AdvReac Unknown PAPER Verified 04/21/25 11:35 TAPE,REDNESS AND IRRITATION PMF Past Medical History Medical History Stenosis of right carotid artery 75 to 90% Type 2 diabetes mellitus Chronic obstructive pulmonary disease Systolic congestive heart failure Pancreatitis Non-tuberculous mycobacterial pneumonia MSSA bacteremia Osteopenia Pseudomonas pneumonia 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 Code status: Full code. Smoking packs per day: 0.25 Smoking cigarettes per day: 5.0 Years smoked: 44 Smoking pack-years: 11.00 Smoking status: Current some day smoker Tobacco type: cigarettes Additional smoking assessment comments: uses nicotine patches Alcohol intake: never Substance use: never Substance use type: does not use Do You Feel Safe in your Home?: Yes Lack of Transportation: No Lack of Food: Never True Current Housing: I Have Housing Concerned About Future Housing: No Difficulty Paying Gas/Electric Bills: No Difficulty Paying for Meds: No Currently Unemployed: No Education: High School Diploma/GED Difficulty w/ Childcare or Family Care: No Living arrangements: with family Additional living arrangements comments: He lives with his roommate in [place]. Occupation/Education: unemployed Spiritual care concerns: No Agree to blood products: Yes Exam Narrative: GENERAL: Thin, in no acute distress. HEAD: Normocephalic, atraumatic. EYES: Non injected, non icteric ENT: Nares clear, no rhinorrhea or epistaxis. Gross auditory acuity intact. Tacky mucous membranes. NECK: Supple. No meningismus. CHEST: Speaking in full sentences. No respiratory distress. On 4-5LPM NC. HEART: Regular rate and rhythm. . ABDOMEN: Soft, nondistended. No rigidity or guarding. Not peritoneal EXTREMITIES: Normal range of motion. No lower extremity edema. SKIN: Warm, dry, no rash. NEURO: No focal deficits. Alert and oriented. Answering questions. Following commands. Normal speech without aphasia or dysarthria. PSYCH: Normal mood and affect. Course Vital Signs Vital signs: Vital Signs Temperature 98.2 F 04/20/25 20:45 Pulse Rate 104 H 04/20/25 20:45 Respiratory Rate 20 04/20/25 20:45 Blood Pressure 105/85 04/20/25 20:45 Pulse Oximetry 92 04/20/25 20:45 Oxygen Delivery Nasal Cannula 04/20/25 20:45 Oxygen Flow Rate 04/20/25 20:45 Temperature 97.7 F 04/22/25 14:00 Pulse Rate 86 04/22/25 14:51 Respiratory Rate 20 04/22/25 14:51 Blood Pressure 100/62 04/22/25 14:00 Pulse Oximetry 94 04/22/25 14:38 Oxygen Delivery Nasal Cannula 04/22/25 14:38 Oxygen Flow Rate 5 04/22/25 14:38 MDM - SOB/Dyspnea MDM Narrative Medical decision making narrative: Patient presents with SOB and difficulty swallowing. History of leukemia and COPD, chronically on O2. In the emergency department he is afebrile with vital signs notable for mild tachycardia as well as mild hypoxia. Given the history of malignancy and the difficulty swallowing, will proceed with CTA imaging to assess for PE as well as assessing soft tissue neck. In the interim, will treat as a COPD exacerbation with steroid and magnesium. Mild leukocytosis. Patient also has a macrocytic anemia that has been stable. He has a mild hyperglycemia but without anion gap acidosis. Radiologist Dr Gray called regarding the finding of : Soft tissue swelling in esophagus, possibly a mass. Severe narrowing R carotid artery. The mass in the esophagus is presenting patient from being able to tolerate liquids or solids and maintain his hydration and nutrition. For this reason, I do believe it is appropriate to admit for further workup in hospital rather than pursuing outpatient evaluation. Discussed with on-call digital solution architect Dr Lambert who concurs. Discussed with patient who is amenable. Discuss code status and he confirms full code in the event of cardiopulmonary arrest. Spoke with on-call hospitalist GABE Crabtree who accepts admission. 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 Differential Diagnosis Differential diagnosis: Likely acute exacerbation of chronic obstructive airways disease, congestive heart failure, community acquired pneumonia, pulmonary embolism and other (pill esophagitis; head/neck cancer; mediastinal mass; allergic reaction/anaphylaxis) Lab Data Attestation: I reviewed the patient's lab results. 04/22/25 07:35 04/22/25 07:35 Labs: Lab Results 04/20/25 Range/Units 21:00 WBC 10.6 H (4.5-10.0) K/mm3 RBC 3.07 L (4.6-6.20) M/mm3 Hgb 10.6 L (14.0-18.0) g/dL Hct 32.5 L (42.0-52.0) % MCV 105.9 H (80-100) fl MCH 34.5 H (26-34) pg MCHC 32.6 (32-36) g/dl RDW 13.2 (11.5-14.5) % Plt Count 362 (150-375) k/mm3 MPV 10.6 H (7.4-10.4) fl Immature Gran % (Auto) 0.8 H (0-0.5) % Neut % (Auto) 57.7 (45.5-73.1) % Lymph % (Auto) 30.6 (18.3-44.2) % Walsh % (Auto) 9.1 H (2.6-8.5) % Eos % (Auto) 1.2 (0-4.4) % Baso % (Auto) 0.6 (0.2-1.2) % Lymph # (Auto) 3.24 H (0.9-3.2) K/mm3 Walsh # (Auto) 1.0 H (0.1-0.6) K/mm3 Eos # (Auto) 0.1 (0-0.3) K/mm3 Baso # (Auto) 0.1 (0.0-0.1) K/mm3 Abs Immat Gran (auto) 0.08 H (0.00-0.031) K/mm3 Absolute Neuts (auto) 6.1 (1.3-6.7) K/mm3 Absolute Nucleated RBC 0.000 (0.0-0.012) K/mm3 Band Neutrophils % 0 (0-6) % Nucleated RBC % 0.0 (0.0-0.2) % Platelet Estimate Adequate (Adequate) Macrocytosis 1+ (NORMAL) Schistocytes None seen Sodium 137 (137-145) mmol/L Potassium 3.8 (3.4-5.0) mmol/L Chloride 95 L (98-107) mmol/L Carbon Dioxide 33 H (22-30) mmol/L Anion Gap 9 (4-12) mmol/L BUN 18 (9-20) mg/dL Creatinine 0.73 (0.7-1.3) mg/dL Estim Creat Clear Calc 65 ml/min Estimated GFR > 60 (59 - ) Glucose 149 H (65-110) mg/dL Calcium 9.6 (8.4-10.2) mg/dL Magnesium 1.6 (1.6-2.3) mg/dL Total Bilirubin 1.1 (0.2-1.3) mg/dL AST 31 (17-59) U/L ALT 19 (6-50) U/L Alkaline Phosphatase 115 (38-126) U/L Total Protein 8.6 H (6.3-8.2) g/dL Albumin 3.6 (3.5-5.1) g/dL Influenza A (RT-PCR) Negative (Negative) Influenza B (RT-PCR) Negative (Negative) RSV (RT-PCR) Negative (Negative) SARS-CoV-2 RNA (RT-PCR) Negative (Negative) Imaging Data Attestation: I personally reviewed and interpreted this imaging study as follows: My impression: Very hyperinflated lungs consistent with patient's known COPD on my independent interpretation of chest x-ray Radiologist's impression: IMPRESSION: Dilated esophagus with soft tissue density seen in the mid esophagus. Severe narrowing of the right carotid artery of about 75-90%. Other appearances as described above. Dr. Gilbert was notified with the result of the patient at 11:30 PM ECG Data EKG #1: Attestation: I personally reviewed and interpreted this ECG as follows: ECG completion date: 04/20/25 ECG completion time: 21:08 Interpretation: Sinus tachycardia at a rate of 105 beats per minute. MI interval 146. QRS 83. QT/QTC 271/332. Ectopic premature complex. Left atrial enlargement suspected and signs of pulmonary disease. Baseline tracing is poor and limits full interpretation. Discharge Plan Discharge Clinical Impression: Anemia, macrocytic, Shortness of breath, Dysphagia, Esophageal mass, History of COPD Carotid artery narrowing Qualifiers: Laterality: right Qualified Code(s): I65.21 - Occlusion and stenosis of right carotid artery Patient Disposition: Still a Patient Condition: Stable
[2025-04-20 21:28] LABS: Alanine Aminotransferase 19 U/L (6-50); Albumin Level 3.6 g/dL (3.5-5.1); Alkaline Phosphatase 115 U/L (38-126); Anion Gap 9 mmol/L (4-12); Aspartate Amino Transferase 31 U/L (17-59); Bilirubin,Total 1.1 mg/dL (0.2-1.3); Blood Urea Nitrogen 18 mg/dL (9-20); Calcium 9.6 mg/dL (8.4-10.2); Carbon Dioxide 33 mmol/L (22-30); Chloride 95 mmol/L (98-107); Estimated CRCL calculation 65 ml/min; Estimated Glomerular Filt Rate > 60; Glucose 149 mg/dL (65-110); Potassium 3.8 mmol/L (3.4-5.0); Sodium 137 mmol/L (137-145); Total Protein 8.6 g/dL (6.3-8.2)
[2025-04-20 21:45] LABS: Platelet Estimate Adequate (Adequate)
[2025-04-20 21:46] LABS: Band Neutrophils Percent 0 % (0-6); Macrocytosis 1+ (NORMAL); Schistocytes None Seen
[2025-04-20 21:58] LABS: Magnesium 1.6 mg/dL (1.6-2.3)
[2025-04-20 22:01] LABS: Influenza A QL RT-PCR Negative (Negative); Influenza B QL RT-PCR Negative (Negative); RSV RNA, RT-PCR Negative (Negative); SARS-CoV-2 RNA PCR Negative (Negative)
[2025-04-20] MEDS: SODIUM CHLORIDE 0.9% IV 1,000 ML 999 ML IV CONT (22:22)
[2025-04-20] MEDS: MAGNESIUM SULF 2 GM/WATER 50ML 2 GM/50 ML BAG IVPB (22:23)
[2025-04-20] MEDS: methylPREDNISolone SOD SUCC 125 MG VIAL IV PUSH (22:24)
[2025-04-21] VITALS (20 sets, daily range): BP systolic 90–131; BP diastolic 53–89; PULSE 41–96; RESP 14–30; TEMP 35.2–36.7; O2SAT 91–100; BMI 15.3
--- NOTE | 2025-04-21 00:25 | PC.NURSE ---
Attempted to go over home medications with pt. Pt verbalized yes to all. Although, pt kept intermittently falling back asleep.
[2025-04-21] MEDS: DEXTROSE 5%/0.9% SOD CHL 1,000 ML 100 ML IV CONT ×2 (00:26→09:36)
--- NOTE | 2025-04-21 00:55 | PM.IMHP ---
H&P: HPI History of Present Illness Date/Time: 04/21/25 04:30 Chief Complaint: Shortness of breath and difficulty swallowing. 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 Yesterday morning at about 11:00 he noticed that he was having difficulty swallowing and was feeling increasingly short of breath from baseline. He came in last evening as he has not been able to tolerate liquids or solids the last 24 hours or so. He has had similar symptoms in the past and last EGD showed changes of the esophagus consistent with chronic hvwao-kiyvjb-cahx disease. He denies fever, chills, sweats, vomiting, chest pain, pleuritic pain, and productive cough. He also denies syncope, near syncope, pleuritic pain, palpitations, edema, and calf pain. In the ED: Vital signs on arrival include a temperature of 98.2?, blood pressure 105/85, pulse 104, respiratory 20, SpO2 92% on his usual 5 L. Labs are significant for WBC count 10.6, hemoglobin 10.6, BUN 18, creatinine 0.73, glucose 149. He was negative for influenza, RSV, and COVID. Chest CTA was negative for pulmonary embolism but showed a soft tissue density in the mid esophagus with dilated esophagus proximal to that area. Soft tissue neck CT showed similar findings in addition to severe narrowing of the right carotid artery about 75 to 90%. He was given a nebulizer treatment and a dose of Solu-Medrol. He is being admitted in this setting for GI consultation for probable EGD later this morning. Review of Systems Review of Systems: 12 systems were reviewed and are negative except for as per HPI. [facility] Past Medical History Medical History Stenosis of right carotid artery 75 to 90% Type 2 diabetes mellitus Chronic obstructive pulmonary disease Systolic congestive heart failure Pancreatitis Non-tuberculous mycobacterial pneumonia MSSA bacteremia Osteopenia Pseudomonas pneumonia Mycobacterium avium complex Chronic kdfbb-pcusne-qmlh disease Chronic respiratory failure with hypoxia, on home oxygen therapy Coronary artery disease Pill esophagitis ST elevation (STEMI) myocardial infarction (12/30/22) Chronic anticoagulation Immunocompromised patient patient on anti rejection medications Positive nasal culture for methicillin resistant Staphylococcus aureus Deep venous thrombosis Chronic obstructive pulmonary disease Sciatica Eczema Anxiety Depression Peyronie's disease Emphysema/COPD Acute myeloid leukemia (2008) status post hematopoietic stem cell transplantation with resultant chronic zwfvs-ekkxwc-bpnd disease. 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 Code status: Full code. Years smoked: 44 Smoking status: Current some day smoker Tobacco type: cigarettes Additional smoking assessment comments: uses nicotine patches Alcohol intake: never Substance use: never Substance use type: does not use Do You Feel Safe in your Home?: Yes Lack of Transportation: No Lack of Food: Never True Current Housing: I Have Housing Concerned About Future Housing: No Difficulty Paying Gas/Electric Bills: No Difficulty Paying for Meds: No Currently Unemployed: No Education: High School Diploma/GED Difficulty w/ Childcare or Family Care: No Living arrangements: with family Additional living arrangements comments: He lives with his roommate in [place]. Occupation/Education: unemployed Spiritual care concerns: No Agree to blood products: Yes Meds Home Medications and Allergies Home Medications ?Medication ?Instructions ?Recorded ?Confirmed ?Type rivaroxaban 20 mg tablet (Xarelto) 20 mg PO QAM 02/06/23 04/21/25 History acyclovir 400 mg tablet 400 mg PO TID #90 tabs 01/28/24 04/21/25 Rx montelukast 10 mg tablet 10 mg PO HS #30 tabs 01/28/24 04/21/25 Rx (Singulair) mycophenolate mofetil 500 mg tablet 1,000 mg (2 x 500 mg) PO Q12H #10 01/28/24 04/21/25 Rx tabs tacrolimus 0.5 mg capsule, 0.5 mg PO EVERY OTHER DAY #30 caps 01/28/24 04/21/25 Rx immediate-release (Prograf) albuterol sulfate 90 mcg/actuation 1 puff inhalation Q4-6H PRN 10/23/24 04/21/25 History aerosol inhaler Shortness Of Breath Or Wheezing ondansetron 4 mg disintegrating 4 mg PO Q8H PRN Nausea And Vomiting 10/23/24 04/21/25 History tablet pantoprazole 40 mg tablet,delayed 40 mg PO Q12H 10/23/24 04/21/25 History release isavuconazonium sulfate 186 mg 372 mg PO DAILY 11/25/24 04/21/25 History capsule (Cresemba) fluticasone fur. 200 mcg-umeclid 1 inh inhalation DAILY 02/04/25 04/21/25 History 62.5 mcg-vilant 25 mcg inhalat.powder (Trelegy Ellipta) gabapentin 300 mg capsule 300 mg PO QID 02/04/25 04/21/25 History budesonide 2 mg/10 mL oral 10 ml PO QAM AND QPM 60 days 02/10/25 04/21/25 Rx suspension in packet (Eohilia) #1,200 mL ethambutol 400 mg tablet 800 mg (2 x 400 mg) PO DAILY 60 02/11/25 04/21/25 Rx days #120 tabs tamsulosin 0.4 mg capsule 0.4 mg PO QAM #30 caps 02/11/25 04/21/25 Rx albuterol sulfate 2.5 mg/3 mL See Rx Instructions .Route 04/16/25 04/21/25 Rx (0.083 %) solution for nebulization .COMPLEX #180 mL atorvastatin 40 mg tablet 40 mg PO QPM 04/21/25 04/21/25 History Allergies Allergy/AdvReac Type Severity Reaction Status Date / Time adhesive tape AdvReac Unknown PAPER Verified 04/21/25 00:17 TAPE,REDNESS AND IRRITATION Vital Signs Vital Signs - 24 hr 04/20/25 20:45 04/20/25 20:52 04/20/25 20:52 Temperature 98.2 F Pulse Rate 104 H 109 H 108 H Respiratory Rate 20 15 Blood Pressure 105/85 105/85 Pulse Oximetry 92 Oxygen Delivery Nasal Cannula Oxygen Flow Rate 5 04/20/25 21:01 04/20/25 21:07 04/20/25 21:16 Temperature Pulse Rate 104 H 108 H Respiratory Rate 19 20 Blood Pressure 97/77 L 94/78 L Pulse Oximetry 92 Oxygen Delivery Nasal Cannula Oxygen Flow Rate 5 04/20/25 21:31 04/20/25 21:46 04/20/25 22:17 Temperature Pulse Rate 104 H 93 94 Respiratory Rate 15 20 21 H Blood Pressure 91/76 L 116/77 125/78 Pulse Oximetry 96 100 Oxygen Delivery Oxygen Flow Rate 04/20/25 22:31 04/20/25 22:46 04/20/25 22:46 Temperature Pulse Rate 89 87 Respiratory Rate 12 19 Blood Pressure 133/80 139/83 Pulse Oximetry 100 100 100 Oxygen Delivery Nasal Cannula Oxygen Flow Rate 5 04/20/25 23:01 04/20/25 23:16 04/20/25 23:31 Temperature Pulse Rate 88 88 81 Respiratory Rate 18 18 16 Blood Pressure 125/76 101/68 110/68 Pulse Oximetry 100 100 100 Oxygen Delivery Oxygen Flow Rate 04/20/25 23:46 Temperature Pulse Rate 79 Respiratory Rate 14 Blood Pressure 116/78 Pulse Oximetry 100 Oxygen Delivery Oxygen Flow Rate Exam Narrative: General: Cachectic, chronically ill-appearing male in the semi-Grider position in bed. Weight: 50 kg. BMI: 15.4. HEENT: Slightly hard of hearing. PERRL, EOMI. Sclera anicteric. Oral mucosa is tacky. Neck: Supple. No JVD or lymphadenopathy. Full ornelas. Respiratory: Currently on 5 L nasal cannula. Lung sounds are diminished throughout with occasional rhonchi. Cardiovascular: Regular rate and rhythm with S1-S2. Gastrointestinal: Abdomen is soft, scaphoid, nontender, and nondistended with positive bowel sounds. Skin: Warm and dry. No rash or lesions on limited exam. Extremities: No cyanosis, clubbing, or edema. Palpable pulses. Neurological: Alert. Cranial nerves 2-12 are grossly intact. No gross focal deficits to casual conversation. Psychiatric: Pleasant and cooperative with appropriate mood and affect. He is in good spirits. H&P: Results Labs Labs: Short CBC 04/20/25 Range/Units 21:00 WBC 10.6 H (4.5-10.0) K/mm3 Hgb 10.6 L (14.0-18.0) g/dL Hct 32.5 L (42.0-52.0) % Plt Count 362 (150-375) k/mm3 BMP 04/20/25 21:00 Sodium 137 Potassium 3.8 Chloride 95 L Carbon Dioxide 33 H BUN 18 Creatinine 0.73 Glucose 149 H Calcium 9.6 Liver Function 04/20/25 Range/Units 21:00 Total Bilirubin 1.1 (0.2-1.3) mg/dL AST 31 (17-59) U/L ALT 19 (6-50) U/L Alkaline Phosphatase 115 (38-126) U/L Albumin 3.6 (3.5-5.1) g/dL Imaging Chest X-Ray 04/20/25 21:24 IMPRESSION: No acute cardiopulmonary pathology. Chest CTA 04/20/25 23:01 IMPRESSION: 1. No pulmonary embolism. 2. Cavitary changes in the right apical area unchanged. 3. Soft tissue density in the mid esophagus. Esophagoscopy is advised to exclude a mass. Dilated upper esophagus is seen proximal to this area 4. Atelectatic changes in the lung bases posteriorly. 5. Underlying emphysematous changes. CTA chest PE protocol, CT soft tissue neck w con Ordering provider: Myla Gilbert MD History: 59 years Male with . SOB, hx COPD; also diff swallowing . Comparison: None. Technique: CT soft tissues neck was performed with contrast. . Automated exposure control and iterative reconstruction technique were employed. The dose-length product was 203.64 (accession [id number]), 349.26 (accession [id number]) mGy-cm. 100 mL Omnipaque 350 was given IV. Findings: LOWER HEAD: The visualized brain parenchyma, optic globes/orbits and mastoids are normal. Bilateral mastoid air cell effusion. Bilateral sphenoid sinus disease. Dilated upper esophagus is noted with soft tissue density seen in the mid esophagus better seen with the chest study. SALIVARY GLANDS: Normal. THYROID: Normal. SUPRAHYOID DEEP SPACES: Normal. CAROTID ARTERIES: Atherosclerotic changes. The right is severely narrowed at the bifurcation of about 90%. JUGULAR VEINS: Normal. The right is smaller in size. TONSILS: Normal. ORAL CAVITY: normal as visualized. PHARYNX, LARYNX AND TRACHEA: Patent and normal. No prevertebral soft tissue swelling. SUPERFICIAL SOFT TISSUES: Normal. No lymphadenopathy or neck mass. SKELETAL: Normal. IMPRESSION: Dilated esophagus with soft tissue density seen in the mid esophagus. Severe narrowing of the right carotid artery of about 75-90%. Other appearances as described above. Dr. Gilbert was notified with the result of the patient at 11:30 PM on April 20, [address] 04/20/25 23:01 IMPRESSION: 1. No pulmonary embolism. 2. Cavitary changes in the right apical area unchanged. 3. Soft tissue density in the mid esophagus. Esophagoscopy is advised to exclude a mass. Dilated upper esophagus is seen proximal to this area 4. Atelectatic changes in the lung bases posteriorly. 5. Underlying emphysematous changes. CTA chest PE protocol, CT soft tissue neck w con Ordering provider: Myla Gilbert MD History: 59 years Male with . SOB, hx COPD; also diff swallowing . Comparison: None. Technique: CT soft tissues neck was performed with contrast. . Automated exposure control and iterative reconstruction technique were employed. The dose-length product was 203.64 (accession [id number]), 349.26 (accession [id number]) mGy-cm. 100 mL Omnipaque 350 was given IV. Findings: LOWER HEAD: The visualized brain parenchyma, optic globes/orbits and mastoids are normal. Bilateral mastoid air cell effusion. Bilateral sphenoid sinus disease. Dilated upper esophagus is noted with soft tissue density seen in the mid esophagus better seen with the chest study. SALIVARY GLANDS: Normal. THYROID: Normal. SUPRAHYOID DEEP SPACES: Normal. CAROTID ARTERIES: Atherosclerotic changes. The right is severely narrowed at the bifurcation of about 90%. JUGULAR VEINS: Normal. The right is smaller in size. TONSILS: Normal. ORAL CAVITY: normal as visualized. PHARYNX, LARYNX AND TRACHEA: Patent and normal. No prevertebral soft tissue swelling. SUPERFICIAL SOFT TISSUES: Normal. No lymphadenopathy or neck mass. SKELETAL: Normal. IMPRESSION: Dilated esophagus with soft tissue density seen in the mid esophagus. Severe narrowing of the right carotid artery of about 75-90%. Other appearances as described above. Dr. Gilbert was notified with the result of the patient at 11:30 PM on April 20, 2020 Assessment and Plan Assessment and plan (1) Dysphagia: Code(s): R13.10 - Dysphagia, unspecified Status: Acute (2) Chronic agxox-wlsvfq-tabj disease: Code(s): D89.811 - Chronic gwsug-kozsnb-hyjc disease Status: Acute (3) Type 2 diabetes mellitus: Code(s): E11.9 - Type 2 diabetes mellitus without complications Status: Acute (4) Systolic congestive heart failure: Code(s): I50.20 - Unspecified systolic (congestive) heart failure Status: Acute (5) Hypertension: Qualifiers: Hypertension type: primary hypertension Qualified Code(s): I10 - Essential (primary) hypertension Code(s): I10 - Essential (primary) hypertension Status: Acute (6) Anemia: Code(s): D64.9 - Anemia, unspecified Status: Acute (7) Stenosis of right carotid artery: Code(s): I65.21 - Occlusion and stenosis of right carotid artery Status: Acute Plan The patient presented to the emergency department with complaints of shortness of breath and difficulty swallowing since yesterday morning as detailed in HPI. Labs, imaging, EKG, and all reports were personally reviewed. Imaging showed a soft tissue density in the mid esophagus with a dilated upper esophagus proximal to this area. Dr. Lambert was consulted by the ED physician and the patient will be NPO for an EGD later today. He was hydrated in the ED; avoid over-hydration given history of congestive heart failure. He does not have any critical electrolyte abnormalities and his chronic anemia stable on review of previous labs. Initiate sliding scale insulin, Accu-Cheks, and hypoglycemic protocol. Continue anti rejection medications and fungal and viral prophylactic medications. He will need outpatient follow-up regarding the significant right carotid artery stenosis seen on imaging. The rest of his home medications will be reviewed and resumed as appropriate. Findings and treatment plan were discussed with the patient. Questions were solicited and answered to satisfaction. The patient's medical management will be taken over by the hospitalist team in a.m. Quality VTE Prophylaxis VTE prophylaxis: mechanical ordered If No VTE Prophylaxis Answer both mechanical and pharmacologic: Reason no pharmacologic proph: medical contraindication (will likely have EGD later today) The patient has been admitted under observation status. Hospitalist [facility] Advance Care Plan I have confirmed that the patient's Advanced Care Plan is present, code status is documented, or surrogate decision maker is listed in patient medical record.: Yes Medication Reconciliation I have utilized all available resources to obtain, update and review the patients current medications (includes all prescriptions, OTC, herbals, cannabis, and nutritional supplements).: Yes
--- NOTE | 2025-04-21 02:36 | ADMGEN ---
This patient, Brady Jones, was admitted to [address] [facility] Surg Room 323-02. Patient/family oriented to hospital policies and general routines including ID bracelet, bed and alarms, visiting hours, pain management, procedures, bathroom and other care routines, personal items, smoking policy, room service/diet, and visiting hours. Information on how to activate the Rapid Response Team has been discussed. Patient/Family are encouraged to report perceived risks to care and to ask questions if they do not understand what they are told or what they should do.
[2025-04-21 06:32] LABS: Hematocrit 30.5 % (42.0-52.0); Hemoglobin 9.8 g/dL (14.0-18.0); Mean Corpuscular HGB Conc 32.1 g/dl (32-36); Mean Corpuscular Hemoglobin 34.3 pg (26-34); Mean Corpuscular Volume 106.6 fl (80-100); Mean Platelet Volume 10.7 fl (7.4-10.4); Platelet Count Result 343 k/mm3 (150-375); Red Blood Count 2.86 M/mm3 (4.6-6.20); Red Cell Distribution Width 13.3 % (11.5-14.5); White Blood Count 5.1 K/mm3 (4.5-10.0)
[2025-04-21 06:59] LABS: Anion Gap 5 mmol/L (4-12); Blood Urea Nitrogen 16 mg/dL (9-20); Calcium 8.6 mg/dL (8.4-10.2); Carbon Dioxide 32 mmol/L (22-30); Chloride 101 mmol/L (98-107); Estimated CRCL calculation 83 ml/min; Estimated Glomerular Filt Rate > 60; Glucose 260 mg/dL (65-110); Magnesium 2.2 mg/dL (1.6-2.3); Potassium 3.9 mmol/L (3.4-5.0); Sodium 138 mmol/L (137-145)
[2025-04-21 07:07] LABS: Glucose Point of Care 246 mg/dl (65-105)
[2025-04-21] MEDS: INSULIN ASPART (*BKC) 100 UNITS/ML SUB-Q ×4 (07:08→20:34)
--- NOTE | 2025-04-21 07:37 | PM.IMPN ---
Progress Note: A&P Assessment and Plan (1) Dysphagia: Code(s): R13.10 - Dysphagia, unspecified Status: Acute Assessment and Plan: Chest CTA: Dilated esophagus with soft tissue density seen in the mid esophagus. Severe narrowing of the right carotid artery of about 75-90%. Soft tissue neck CT: No PE, cavitary changes right apical area unchanged, soft tissue density and midesophagus. Atelectatic changes in lung bases posteriorly, underlying emphysematous changes GI consulted EGD today Normal EGD to depth of insertion Food bolus seen in mid esophagus, removed Intrinsic stenosis noted in mid esophagus after bolus removed, depth 35 cm from incisors Recommend follow-up appointment with GI, continue present medications and clear liquid diet Appreciate further recommendations from GI standpoint (2) Type 2 diabetes mellitus: Code(s): E11.9 - Type 2 diabetes mellitus without complications Status: Acute Assessment and Plan: Hypoglycemia protocol POC blood glucose ACHS Correct regimen ordered - low dose TIDWM and HS (3) Systolic congestive heart failure: Code(s): I50.20 - Unspecified systolic (congestive) heart failure Status: Acute Assessment and Plan: Symptoms: SOB EKG: Sinus Tachicardia, RAD Chest XR: No acute cardiopulmonary pathology. Monitor vital signs, I&Os, BUN/creatinine, daily weights, neuro status and patient is a fall risk Monitor serum electrolytes, Keep serum Potassium>4 and serum Magnesium>2 and CBC Monitor volume status (4) Hypertension: Qualifiers: Hypertension type: primary hypertension Qualified Code(s): I10 - Essential (primary) hypertension Code(s): I10 - Essential (primary) hypertension Status: Acute Assessment and Plan: Patient's blood pressure was reviewed on 04/21 Blood pressure remains well controlled. Will continue current medications. (5) Anemia: Code(s): D64.9 - Anemia, unspecified Status: Acute Assessment and Plan: Hgb: 9.8 Hx: Chronic anemia transfuse if <7 trend H&H Stable (6) Stenosis of right carotid artery: Code(s): I65.21 - Occlusion and stenosis of right carotid artery Status: Acute Assessment and Plan: Soft tissue neck CT Dilated esophagus with soft tissue density seen in the mid esophagus. Severe narrowing of the right carotid artery of about 75-90%. 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 04/21/2025 Pt sitting comfortably in bed at time of examination. Patient had an EGD done today to assess for possible esophageal mass, and dysphagia. GI following at this time. Patient has no complaints or concerns. Patient on 4 L nasal cannula baseline. Vital signs remained stable. Review of Systems Review of Systems: 12 systems were reviewed and are negative except for as per HPI. Exam Narrative: General: Cachectic, chronically ill-appearing male in the semi-Grider position in bed. Weight: 50 kg. BMI: 15.4. HEENT: Slightly hard of hearing. PERRL, EOMI. Sclera anicteric. Oral mucosa is tacky. Neck: Supple. No JVD or lymphadenopathy. Full ornelas. Respiratory: Currently on 5 L nasal cannula. Lung sounds are diminished throughout with occasional rhonchi. Cardiovascular: Regular rate and rhythm with S1-S2. Gastrointestinal: Abdomen is soft, scaphoid, nontender, and nondistended with positive bowel sounds. Skin: Warm and dry. No rash or lesions on limited exam. Extremities: No cyanosis, clubbing, or edema. Palpable pulses. Neurological: Alert. Cranial nerves 2-12 are grossly intact. No gross focal deficits to casual conversation. Psychiatric: Pleasant and cooperative with appropriate mood and affect. He is in good spirits. Objective Data Vital Signs Vital Signs: Vital Signs - 24 hr 04/20/25 20:45 04/20/25 20:52 04/20/25 20:52 Temperature 98.2 F Pulse Rate 104 H 109 H 108 H Respiratory Rate 20 15 Blood Pressure 105/85 105/85 Pulse Oximetry 92 Oxygen Delivery Nasal Cannula Oxygen Flow Rate 5 04/20/25 21:01 04/20/25 21:07 04/20/25 21:16 Temperature Pulse Rate 104 H 108 H Respiratory Rate 19 20 Blood Pressure 97/77 L 94/78 L Pulse Oximetry 92 Oxygen Delivery Nasal Cannula Oxygen Flow Rate 04/20/25 21:31 04/20/25 21:46 04/20/25 22:17 Temperature Pulse Rate 104 H 93 94 Respiratory Rate 15 20 21 H Blood Pressure 91/76 L 116/77 125/78 Pulse Oximetry 96 100 Oxygen Delivery Oxygen Flow Rate 04/20/25 22:31 04/20/25 22:46 04/20/25 22:46 Temperature Pulse Rate 89 87 Respiratory Rate 12 19 Blood Pressure 133/80 139/83 Pulse Oximetry 100 100 100 Oxygen Delivery Nasal Cannula Oxygen Flow Rate 5 04/20/25 23:01 04/20/25 23:16 04/20/25 23:31 Temperature Pulse Rate 88 88 81 Respiratory Rate 18 18 16 Blood Pressure 125/76 101/68 110/68 Pulse Oximetry 100 100 100 Oxygen Delivery Oxygen Flow Rate 04/20/25 23:46 04/21/25 00:01 04/21/25 00:16 Temperature Pulse Rate 79 82 82 Respiratory Rate 14 16 17 Blood Pressure 116/78 107/72 110/68 Pulse Oximetry 100 100 100 Oxygen Delivery Oxygen Flow Rate 04/21/25 00:31 04/21/25 00:46 04/21/25 01:00 Temperature Pulse Rate 78 78 80 Respiratory Rate 16 16 16 Blood Pressure 124/75 123/75 122/78 Pulse Oximetry 100 100 100 Oxygen Delivery Oxygen Flow Rate 04/21/25 02:47 04/21/25 03:13 04/21/25 06:00 Temperature 96.9 F L Pulse Rate 75 41 L Respiratory Rate 14 18 Blood Pressure 121/77 131/89 Pulse Oximetry 100 100 97 Oxygen Delivery Nasal Cannula Oxygen Flow Rate 5 Intake/Output Intake/Output: Intake & Output 04/18/25 04/19/25 04/20/25 04/21/25 23:59 23:59 23:59 23:59 Intake Total 1000 50 Output Total 200 Balance 1000 -150 Meds/Results Medications: Active Medications Generic Name Dose Route Start Last Admin Trade Name Freq PRN Reason Stop Dose Admin Acyclovir 400 mg 04/21/25 09:00 Acyclovir 400 Mg Tablet PO Q8HR ROSA MARIA Albuterol 2.5 mg 04/21/25 08:00 Albuterol Sulfate Neb 2.5 Mg/3 Ml Inh INHALATION Q6HRT ROSA MARIA Albuterol 1 puff 04/21/25 04:43 Albuterol Sulfate (*Sp) Aerosol 1 Puff INHALATION Q4HRT PRN Shortness Of Breath Or Wheezing Atorvastatin Calcium 40 mg 04/21/25 18:00 Atorvastatin 40 Mg Tablet PO QPM ROSA MARIA Dextrose 12.5 gm 04/21/25 04:45 Dextrose 50% 25 Gm/50 Ml Syringe IV PUSH PRN PRN Hypoglycemia Protocol Ethambutol HCl 800 mg 04/21/25 09:00 Ethambutol Hcl 400 Mg Tablet PO DAILY ROSA MARIA Fluticasone/Umeclidinium/Vilanterol 1 puff 04/21/25 08:00 Fluticasone/Umeclidin/Vilanter 200-62.5-25 Mcg Ellipta INHALATION DAILYRT ROSA MARIA Gabapentin 300 mg 04/21/25 09:00 Gabapentin 300 Mg Capsule PO QID ROSA MARIA Glucagon 1 mg 04/21/25 04:45 Glucagon For Inj 1 Mg Vial IM PRN PRN Hypoglycemia Protocol Glucose 15 gm 04/21/25 04:45 Glucose Oral Gel 15 Gm Of Glucse In 37.5 Gm Tube PO PRN PRN Hypoglycemia Protocol Dextrose/Sodium Chloride 1,000 mls @ 100 mls/hr 04/21/25 00:10 04/21/25 00:26 Dextrose 5% Sodium Chloride 0.9% IV CONT 100 mls/hr .Q10H ROSA MARIA Administration Dextrose 1,000 mls @ 100 mls/hr 04/21/25 04:45 Dextrose 5% 1,000 Ml IVPB PRN PRN Hypoglycemia Protocol Insulin Aspart 2 - 5 units 04/21/25 06:00 04/21/25 07:08 Insulin Aspart (*Bkc) 100 Units/Ml SUB-Q 2 units Q6HR ROSA MARIA Administration Protocol Miscellaneous Information 1 each 04/21/25 00:01 Isavuconazonium Sulfate [Cresemba] 186 Mg Capsule) Is Nonformulary, Can Patient Bring From XX 05/21/25 00:00 CLARIFY ROSA MARIA Miscellaneous Information 1 each 04/21/25 00:01 Budesonide [Eohilia] 2 Mg/10 Ml Suspension In Packet) Is Nonformulary, Can Patient Bring F XX 05/21/25 00:00 CLARIFY ROSA MARIA Montelukast Sodium 10 mg 04/21/25 21:00 Montelukast Sodium 10 Mg Tablet PO HS [facility] Mycophenolate Mofetil 1,000 mg 04/21/25 09:00 Mycophenolate Mofetil 250 Mg Capsule PO Q12HR [facility] Non-Formulary Medication 10 ml 04/21/25 04:45 Budesonide [Eohilia] PO 05/21/25 04:44 QAM AND QPM [facility] Non-Formulary Medication 372 mg 04/21/25 09:00 Isavuconazonium Sulfate [Cresemba] PO 05/21/25 08:59 DAILY ROSA MARIA Ondansetron HCl 4 mg 04/21/25 00:06 Ondansetron Inj 4 Mg/2 Ml Vial IV PUSH Q4H PRN Nausea Pantoprazole Sodium 40 mg 04/21/25 09:00 Pantoprazole 40 Mg Tablet PO Q12HR ROSA MARIA Tacrolimus 0.5 mg 04/21/25 09:00 Tacrolimus 0.5 Mg Capsule PO Q48H ROSA MARIA Tamsulosin HCl 0.4 mg 04/21/25 09:00 Tamsulosin Hcl 0.4 Mg Capsule PO QAM [facility] Radiology Results: ITS Impressions Chest X-Ray 04/20/25 21:24 IMPRESSION: No acute cardiopulmonary pathology. Chest CTA 04/20/25 23:01 IMPRESSION: 1. No pulmonary embolism. 2. Cavitary changes in the right apical area unchanged. 3. Soft tissue density in the mid esophagus. Esophagoscopy is advised to exclude a mass. Dilated upper esophagus is seen proximal to this area 4. Atelectatic changes in the lung bases posteriorly. 5. Underlying emphysematous changes. CTA chest PE protocol, CT soft tissue neck w con Ordering provider: Myla Gilbert MD History: 59 years Male with . SOB, hx COPD; also diff swallowing . Comparison: None. Technique: CT soft tissues neck was performed with contrast. . Automated exposure control and iterative reconstruction technique were employed. The dose-length product was 203.64 (accession [id number]), 349.26 (accession [id number]) mGy-cm. 100 mL Omnipaque 350 was given IV. Findings: LOWER HEAD: The visualized brain parenchyma, optic globes/orbits and mastoids are normal. Bilateral mastoid air cell effusion. Bilateral sphenoid sinus disease. Dilated upper esophagus is noted with soft tissue density seen in the mid esophagus better seen with the chest study. SALIVARY GLANDS: Normal. THYROID: Normal. SUPRAHYOID DEEP SPACES: Normal. CAROTID ARTERIES: Atherosclerotic changes. The right is severely narrowed at the bifurcation of about 90%. JUGULAR VEINS: Normal. The right is smaller in size. TONSILS: Normal. ORAL CAVITY: normal as visualized. PHARYNX, LARYNX AND TRACHEA: Patent and normal. No prevertebral soft tissue swelling. SUPERFICIAL SOFT TISSUES: Normal. No lymphadenopathy or neck mass. SKELETAL: Normal. IMPRESSION: Dilated esophagus with soft tissue density seen in the mid esophagus. Severe narrowing of the right carotid artery of about 75-90%. Other appearances as described above. Dr. Gilbert was notified with the result of the patient at 11:30 PM on April 20, [address] 04/20/25 23:01 IMPRESSION: 1. No pulmonary embolism. 2. Cavitary changes in the right apical area unchanged. 3. Soft tissue density in the mid esophagus. Esophagoscopy is advised to exclude a mass. Dilated upper esophagus is seen proximal to this area 4. Atelectatic changes in the lung bases posteriorly. 5. Underlying emphysematous changes. CTA chest PE protocol, CT soft tissue neck w con Ordering provider: Myla Gilbert MD History: 59 years Male with . SOB, hx COPD; also diff swallowing . Comparison: None. Technique: CT soft tissues neck was performed with contrast. . Automated exposure control and iterative reconstruction technique were employed. The dose-length product was 203.64 (accession [id number]), 349.26 (accession [id number]) mGy-cm. 100 mL Omnipaque 350 was given IV. Findings: LOWER HEAD: The visualized brain parenchyma, optic globes/orbits and mastoids are normal. Bilateral mastoid air cell effusion. Bilateral sphenoid sinus disease. Dilated upper esophagus is noted with soft tissue density seen in the mid esophagus better seen with the chest study. SALIVARY GLANDS: Normal. THYROID: Normal. SUPRAHYOID DEEP SPACES: Normal. CAROTID ARTERIES: Atherosclerotic changes. The right is severely narrowed at the bifurcation of about 90%. JUGULAR VEINS: Normal. The right is smaller in size. TONSILS: Normal. ORAL CAVITY: normal as visualized. PHARYNX, LARYNX AND TRACHEA: Patent and normal. No prevertebral soft tissue swelling. SUPERFICIAL SOFT TISSUES: Normal. No lymphadenopathy or neck mass. SKELETAL: Normal. IMPRESSION: Dilated esophagus with soft tissue density seen in the mid esophagus. Severe narrowing of the right carotid artery of about 75-90%. Other appearances as described above. Dr. Gilbert was notified with the result of the patient at 11:30 PM on April 20, 2020 Labs Labs: Laboratory Results - last 24 hr 04/20/25 04/21/25 04/21/25 21:00 05:59 07:05 WBC 10.6 H 5.1 RBC 3.07 L 2.86 L Hgb 10.6 L 9.8 L Hct 32.5 L 30.5 L MCV 105.9 H 106.6 H MCH 34.5 H 34.3 H MCHC 32.6 32.1 RDW 13.2 13.3 Plt Count 362 343 MPV 10.6 H 10.7 H Immature Gran % (Auto) 0.8 H Neut % (Auto) 57.7 Lymph % (Auto) 30.6 [place] % (Auto) 9.1 H Eos % (Auto) 1.2 Baso % (Auto) 0.6 Lymph # (Auto) 3.24 H [place] # (Auto) 1.0 H Eos # (Auto) 0.1 Baso # (Auto) 0.1 Abs Immat Gran (auto) 0.08 H Absolute Neuts (auto) 6.1 Absolute Nucleated RBC 0.000 Band Neutrophils % 0 Nucleated RBC % 0.0 Platelet Estimate Adequate Macrocytosis 1+ Schistocytes None seen Sodium 137 138 Potassium 3.8 3.9 Chloride 95 L 101 Carbon Dioxide 33 H 32 H Anion Gap 9 5 BUN 18 16 Creatinine 0.73 0.58 L Estim Creat Clear Calc 65 83 Estimated GFR > 60 > 60 Glucose 149 H 260 H POC Capillary Glucose 246 H Calcium 9.6 8.6 Magnesium 1.6 2.2 Total Bilirubin 1.1 AST 31 ALT 19 Alkaline Phosphatase 115 Total Protein 8.6 H Albumin 3.6 Influenza A (RT-PCR) Negative Influenza B (RT-PCR) Negative RSV (RT-PCR) Negative SARS-CoV-2 RNA (RT-PCR) Negative Quality VTE Prophylaxis VTE prophylaxis: mechanical ordered
[2025-04-21] MEDS: ALBUTEROL SULFATE NEB 2.5 MG/3 ML INH INHALATION ×3 (07:58→20:30)
[2025-04-21] MEDS: FLUTICASONE/UMECLIDIN/VILANTER 200-62.5-25 MCG ELLIPTA 1 PUFF INHALATION (07:58)
--- NOTE | 2025-04-21 09:18 | WPDGICN ---
Assessment and Plan Assessment and plan (1) Dysphagia: Code(s): R13.10 - Dysphagia, unspecified Status: Acute (2) Esophageal mass: Code(s): K22.89 - Other specified disease of esophagus Status: Acute (3) Chronic rqjiq-wawlsk-ojoz disease: Code(s): D89.811 - Chronic zqabe-vguvof-cijo disease Status: Acute (4) Anemia: Code(s): D64.9 - Anemia, unspecified Status: Acute Plan Dysphagia/Esophageal mass/Graft versus host disease/esophagitis: CTA of soft tissue of neck revealed soft tissue density in mid esophagus with dilated upper esophagus proximal to this area. Concerning for esophageal mass. Previous EGD 02/10/202502/10 for c/o of dysphagia. 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 - EGD today to evaluate and reassess for esophageal mass. - NPO status until after procedure - Further recommendation pending EGD. GI Consult Note Consult date/time: 04/21/25 09:18 Reason for consult: esophageal mass, need esophagogoscopy/EGD. 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 He presented to [place] [facility] yesterday for SOB/dyspnea and trouble swallowing. He reports that he was eating a chicken ryann with gravy, cut it into what he thought was a small piece, and after swallowing it felt that his esophagus became obstructed. CTA of soft tissue of neck revealed soft tissue density in the mid esophagus measuring 1.1 cm with air-fluid level above the esophagus. Previously admitted to [place] 02/03-02/11 acute COPD exacerbation underwent 02/10 for c/o of dysphagia. 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 and and prescribed budesonide slurry 2 mg BID and pantoprazole 40 mg BID, he is uncertain if he continue the pantoprazole 40 mg BID after last discharge. Previous history of pill esophagitis per EGD 10/26/2024. He reports his bowel movements were regular at home with last bowel movement 1-2 days prior to admission. He denies taking any medications such as omeprazole or pantoprazole at home. He is currently maintained on Zofran. ENDOSCOPY HISTORY: EGD: 02/10/2025 (Dr. Rogers) for dysphagia Chronic severe localized superficial esophagitis was seen in the mid esophagus between 30 and 35 cm from the incisors. The esophagitis had erosive and exudative changes, friability and loss of vascular pattern. The stomach in the body, cardia and fundus was examined and was normal with no ulcers or masses. The bulb and 2nd portion of the duodenum was normal with no ulcers or masses. Endoscopic diagnosis unspecified esophagitis - Endoscopically and clinically compatible with sghyo-yifbap-dlbf disease, Esophagus biopsy: Nonspecific superficial sampling of necrotic material. Immunostatins: CMV and HSV negative, AFB and GMS negative. EGD: 10/26/2024 for dysphagia Presumptive diagnosis of pill induced esophagitis was made, and biopsies were compatible. IMAGING: CTA soft tissue of neck revealed soft tissue density in the mid esophagus. Dilated upper esophagus seen proximal to this area. Review of Systems Constitutional: Constitutional: Reports as per HPI Eyes: Eyes: Denies blurry vision ENT: Reports dysphagia Cardiovascular: Cardiovascular: Reports no additional cardiovascular complaints Respiratory: Respiratory: Denies hemoptysis and Reports dyspnea Gastrointestinal: Gastrointestinal: Reports as per HPI and Denies melena Genitourinary: Genitourinary: Denies urinary frequency Musculoskeletal: Musculoskeletal: Reports no additional musculoskeletal complaints Integumentary/Breasts: Skin/Breast: Reports system reviewed and no additional complaints, except as docu Neurologic: Denies confusion Psychiatric: Psychiatric: Reports no additional psychiatric complaints PMFSH Past Medical History Medical History Stenosis of right carotid artery 75 to 90% Type 2 diabetes mellitus Chronic obstructive pulmonary disease Systolic congestive heart failure Pancreatitis Non-tuberculous mycobacterial pneumonia MSSA bacteremia Osteopenia Pseudomonas pneumonia Mycobacterium avium complex Chronic jzzsm-hchhmp-xpiu disease Chronic respiratory failure with hypoxia, on home oxygen therapy Coronary artery disease Pill esophagitis ST elevation (STEMI) myocardial infarction (12/30/22) Chronic anticoagulation Immunocompromised patient patient on anti rejection medications Positive nasal culture for methicillin resistant Staphylococcus aureus Deep venous thrombosis Chronic obstructive pulmonary disease Sciatica Eczema Anxiety Depression Peyronie's disease Emphysema/COPD Acute myeloid leukemia (2008) status post hematopoietic stem cell transplantation with resultant chronic rbmly-izqjkp-wgiu disease. 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 Code status: Full code. Years smoked: 44 Smoking status: Current some day smoker Tobacco type: cigarettes Additional smoking assessment comments: uses nicotine patches Alcohol intake: never Substance use: never Substance use type: does not use Do You Feel Safe in your Home?: Yes Lack of Transportation: No Lack of Food: Never True Current Housing: I Have Housing Concerned About Future Housing: No Difficulty Paying Gas/Electric Bills: No Difficulty Paying for Meds: No Currently Unemployed: No Education: High School Diploma/GED Difficulty w/ Childcare or Family Care: No Living arrangements: with family Additional living arrangements comments: He lives with his roommate in [place]. Occupation/Education: unemployed Spiritual care concerns: No Agree to blood products: Yes Meds Home Medications and Allergies Home Medications ?Medication ?Instructions ?Recorded ?Confirmed ?Type rivaroxaban 20 mg tablet (Xarelto) 20 mg PO QAM 02/06/23 04/21/25 History acyclovir 400 mg tablet 400 mg PO TID #90 tabs 01/28/24 04/21/25 Rx montelukast 10 mg tablet 10 mg PO HS #30 tabs 01/28/24 04/21/25 Rx (Singulair) mycophenolate mofetil 500 mg tablet 1,000 mg (2 x 500 mg) PO Q12H #10 01/28/24 04/21/25 Rx tabs tacrolimus 0.5 mg capsule, 0.5 mg PO EVERY OTHER DAY #30 caps 01/28/24 04/21/25 Rx immediate-release (Prograf) albuterol sulfate 90 mcg/actuation 1 puff inhalation Q4-6H PRN 10/23/24 04/21/25 History aerosol inhaler Shortness Of Breath Or Wheezing ondansetron 4 mg disintegrating 4 mg PO Q8H PRN Nausea And Vomiting 10/23/24 04/21/25 History tablet pantoprazole 40 mg tablet,delayed 40 mg PO Q12H 10/23/24 04/21/25 History release isavuconazonium sulfate 186 mg 372 mg PO DAILY 11/25/24 04/21/25 History capsule (Cresemba) fluticasone fur. 200 mcg-umeclid 1 inh inhalation DAILY 02/04/25 04/21/25 History 62.5 mcg-vilant 25 mcg inhalat.powder (Trelegy Ellipta) gabapentin 300 mg capsule 300 mg PO QID 02/04/25 04/21/25 History budesonide 2 mg/10 mL oral 10 ml PO QAM AND QPM 60 days 02/10/25 04/21/25 Rx suspension in packet (Eohilia) #1,200 mL ethambutol 400 mg tablet 800 mg (2 x 400 mg) PO DAILY 60 02/11/25 04/21/25 Rx days #120 tabs tamsulosin 0.4 mg capsule 0.4 mg PO QAM #30 caps 02/11/25 04/21/25 Rx albuterol sulfate 2.5 mg/3 mL See Rx Instructions .Route 04/16/25 04/21/25 Rx (0.083 %) solution for nebulization .COMPLEX #180 mL atorvastatin 40 mg tablet 40 mg PO QPM 04/21/25 04/21/25 History Allergies Allergy/AdvReac Type Severity Reaction Status Date / Time adhesive tape AdvReac Unknown PAPER Verified 04/21/25 00:17 TAPE,REDNESS AND IRRITATION Vital Signs Vital Signs - 24 hr 04/20/25 20:45 04/20/25 20:52 04/20/25 20:52 Temperature 98.2 F Pulse Rate 104 H 109 H 108 H Respiratory Rate 20 15 Blood Pressure 105/85 105/85 Pulse Oximetry 92 Oxygen Delivery Nasal Cannula Oxygen Flow Rate 5 04/20/25 21:01 04/20/25 21:07 04/20/25 21:16 Temperature Pulse Rate 104 H 108 H Respiratory Rate 19 20 Blood Pressure 97/77 L 94/78 L Pulse Oximetry 92 Oxygen Delivery Nasal Cannula Oxygen Flow Rate 5 04/20/25 21:31 04/20/25 21:46 04/20/25 22:17 Temperature Pulse Rate 104 H 93 94 Respiratory Rate 15 20 21 H Blood Pressure 91/76 L 116/77 125/78 Pulse Oximetry 96 100 Oxygen Delivery Oxygen Flow Rate 04/20/25 22:31 04/20/25 22:46 04/20/25 22:46 Temperature Pulse Rate 89 87 Respiratory Rate 12 19 Blood Pressure 133/80 139/83 Pulse Oximetry 100 100 100 Oxygen Delivery Nasal Cannula Oxygen Flow Rate 5 04/20/25 23:01 04/20/25 23:16 04/20/25 23:31 Temperature Pulse Rate 88 88 81 Respiratory Rate 18 18 16 Blood Pressure 125/76 101/68 110/68 Pulse Oximetry 100 100 100 Oxygen Delivery Oxygen Flow Rate 04/20/25 23:46 04/21/25 00:01 04/21/25 00:16 Temperature Pulse Rate 79 82 82 Respiratory Rate 14 16 17 Blood Pressure 116/78 107/72 110/68 Pulse Oximetry 100 100 100 Oxygen Delivery Oxygen Flow Rate 04/21/25 00:31 04/21/25 00:46 04/21/25 01:00 Temperature Pulse Rate 78 78 80 Respiratory Rate 16 16 16 Blood Pressure 124/75 123/75 122/78 Pulse Oximetry 100 100 100 Oxygen Delivery Oxygen Flow Rate 04/21/25 02:47 04/21/25 03:13 04/21/25 06:00 Temperature 96.9 F L Pulse Rate 75 41 L Respiratory Rate 14 18 Blood Pressure 121/77 131/89 Pulse Oximetry 100 100 97 Oxygen Delivery Nasal Cannula Oxygen Flow Rate 5 04/21/25 07:59 04/21/25 07:59 04/21/25 08:00 Temperature Pulse Rate 96 Respiratory Rate 14 Blood Pressure Pulse Oximetry 98 98 Oxygen Delivery Nasal Cannula Nasal Cannula Oxygen Flow Rate 5 5 Exam Const: General: comfortable and no acute distress HENMT: Face/Nose/Sinus: Normal nares present Eyes: General: appearance normal, both eyes and all related structures Neck: Neck: supple Resp: Effort & Inspection: normal respiratory effort Cardio: Rate: regular rate Rhythm: regular rhythm GI: Auscultation: normal bowel sounds : General: Yes bladder normal to palpation Skin: General skin exam: normal color Neuro: Speech: normal speech Extrem: General: no pedal edema Psych: Mental Status: mental status grossly normal Results Labs 04/21/25 05:59 04/21/25 05:59 Labs: Short CBC 04/20/25 04/21/25 Range/Units 21:00 05:59 WBC 10.6 H 5.1 (4.5-10.0) K/mm3 Hgb 10.6 L 9.8 L (14.0-18.0) g/dL Hct 32.5 L 30.5 L (42.0-52.0) % Plt Count 362 343 (150-375) k/mm3 BMP 04/20/25 04/21/25 21:00 05:59 Sodium 137 138 Potassium 3.8 3.9 Chloride 95 L 101 Carbon Dioxide 33 H 32 H BUN 18 16 Creatinine 0.73 0.58 L Glucose 149 H 260 H Calcium 9.6 8.6 Liver Function 04/20/25 Range/Units 21:00 Total Bilirubin 1.1 (0.2-1.3) mg/dL AST 31 (17-59) U/L ALT 19 (6-50) U/L Alkaline Phosphatase 115 (38-126) U/L Albumin 3.6 (3.5-5.1) g/dL
--- NOTE | 2025-04-21 10:52 | P.PNAN_ITS ---
Anes - Initial Pre Proc Eval Procedure: Operation Date: 04/21/25 15:00 Proposed Procedures p Esophagogastroduodenoscopy - Gianfranco Rogers MD Date/Time: 04/21/25 10:52 Surgeon: Osito Carlos MD Pre Op Diagnosis: esophageal mass needs EGD Patient Data Age: 59 Gender: M Height: 1.8 m Weight: 50 kg Last Vital Signs Temp 36.1 C L 04/21/25 06:00 Pulse 96 04/21/25 07:59 Resp 14 04/21/25 07:59 BP 131/89 04/21/25 06:00 Pulse Ox 98 04/21/25 08:00 O2 Del Method Nasal Cannula 04/21/25 08:00 O2 Flow Rate 5 04/21/25 08:00 Allergies Allergy/AdvReac Type Severity Reaction Status Date / Time adhesive tape AdvReac Unknown PAPER Verified 04/21/25 00:17 TAPE,REDNESS AND IRRITATION Home Medications ?Medication ?Instructions ?Recorded ?Confirmed ?Type rivaroxaban 20 mg tablet (Xarelto) 20 mg PO QAM 02/06/23 04/21/25 History acyclovir 400 mg tablet 400 mg PO TID #90 tabs 01/28/24 04/21/25 Rx montelukast 10 mg tablet 10 mg PO HS #30 tabs 01/28/24 04/21/25 Rx (Singulair) mycophenolate mofetil 500 mg tablet 1,000 mg (2 x 500 mg) PO Q12H #10 01/28/24 04/21/25 Rx tabs tacrolimus 0.5 mg capsule, 0.5 mg PO EVERY OTHER DAY #30 caps 01/28/24 04/21/25 Rx immediate-release (Prograf) albuterol sulfate 90 mcg/actuation 1 puff inhalation Q4-6H PRN 10/23/24 04/21/25 History aerosol inhaler Shortness Of Breath Or Wheezing ondansetron 4 mg disintegrating 4 mg PO Q8H PRN Nausea And Vomiting 10/23/24 04/21/25 History tablet pantoprazole 40 mg tablet,delayed 40 mg PO Q12H 10/23/24 04/21/25 History release isavuconazonium sulfate 186 mg 372 mg PO DAILY 11/25/24 04/21/25 History capsule (Cresemba) fluticasone fur. 200 mcg-umeclid 1 inh inhalation DAILY 02/04/25 04/21/25 History 62.5 mcg-vilant 25 mcg inhalat.powder (Trelegy Ellipta) gabapentin 300 mg capsule 300 mg PO QID 02/04/25 04/21/25 History budesonide 2 mg/10 mL oral 10 ml PO QAM AND QPM 60 days 02/10/25 04/21/25 Rx suspension in packet (Eohilia) #1,200 mL ethambutol 400 mg tablet 800 mg (2 x 400 mg) PO DAILY 60 02/11/25 04/21/25 Rx days #120 tabs tamsulosin 0.4 mg capsule 0.4 mg PO QAM #30 caps 02/11/25 04/21/25 Rx albuterol sulfate 2.5 mg/3 mL See Rx Instructions .Route 04/16/25 04/21/25 Rx (0.083 %) solution for nebulization .COMPLEX #180 mL atorvastatin 40 mg tablet 40 mg PO QPM 04/21/25 04/21/25 History Laboratory Tests 04/20/25 04/21/25 04/21/25 21:00 05:59 07:05 WBC 10.6 H K/mm3 5.1 K/mm3 (4.5-10.0) (4.5-10.0) RBC 3.07 L M/mm3 2.86 L M/mm3 (4.6-6.20) (4.6-6.20) Hgb 10.6 L g/dL 9.8 L g/dL (14.0-18.0) (14.0-18.0) Hct 32.5 L % 30.5 L % (42.0-52.0) (42.0-52.0) MCV 105.9 H fl 106.6 H fl (80-100) (80-100) MCH 34.5 H pg 34.3 H pg (26-34) (26-34) MCHC 32.6 g/dl 32.1 g/dl (32-36) (32-36) RDW 13.2 % 13.3 % (11.5-14.5) (11.5-14.5) Plt Count 362 k/mm3 343 k/mm3 (150-375) (150-375) MPV 10.6 H fl 10.7 H fl (7.4-10.4) (7.4-10.4) Immature Gran % (Auto) 0.8 H % (0-0.5) Neut % (Auto) 57.7 % (45.5-73.1) Lymph % (Auto) 30.6 % (18.3-44.2) Hickman % (Auto) 9.1 H % (2.6-8.5) Eos % (Auto) 1.2 % (0-4.4) Baso % (Auto) 0.6 % (0.2-1.2) Lymph # (Auto) 3.24 H K/mm3 (0.9-3.2) Hickman # (Auto) 1.0 H K/mm3 (0.1-0.6) Eos # (Auto) 0.1 K/mm3 (0-0.3) Baso # (Auto) 0.1 K/mm3 (0.0-0.1) Abs Immat Gran (auto) 0.08 H K/mm3 (0.00-0.031) Absolute Neuts (auto) 6.1 K/mm3 (1.3-6.7) Absolute Nucleated RBC 0.000 K/mm3 (0.0-0.012) Band Neutrophils % 0 % (0-6) Nucleated RBC % 0.0 % (0.0-0.2) Platelet Estimate Adequate (Adequate) Macrocytosis 1+ (NORMAL) Schistocytes None seen Sodium 137 mmol/L 138 mmol/L (137-145) (137-145) Potassium 3.8 mmol/L 3.9 mmol/L (3.4-5.0) (3.4-5.0) Chloride 95 L mmol/L 101 mmol/L (98-107) (98-107) Carbon Dioxide 33 H mmol/L 32 H mmol/L (22-30) (22-30) Anion Gap 9 mmol/L 5 mmol/L (4-12) (4-12) BUN 18 mg/dL 16 mg/dL (9-20) (9-20) Creatinine 0.73 mg/dL 0.58 L mg/dL (0.7-1.3) (0.7-1.3) Estim Creat Clear Calc 65 ml/min 83 ml/min Estimated GFR > 60 > 60 (59 - ) (59 - ) Glucose 149 H mg/dL 260 H mg/dL (65-110) (65-110) POC Capillary Glucose 246 H mg/dl (65-105) Calcium 9.6 mg/dL 8.6 mg/dL (8.4-10.2) (8.4-10.2) Magnesium 1.6 mg/dL 2.2 mg/dL (1.6-2.3) (1.6-2.3) Total Bilirubin 1.1 mg/dL (0.2-1.3) AST 31 U/L (17-59) ALT 19 U/L (6-50) Alkaline Phosphatase 115 U/L (38-126) Total Protein 8.6 H g/dL (6.3-8.2) Albumin 3.6 g/dL (3.5-5.1) Influenza A (RT-PCR) Negative (Negative) Influenza B (RT-PCR) Negative (Negative) RSV (RT-PCR) Negative (Negative) SARS-CoV-2 RNA (RT-PCR) Negative (Negative) Patient hx anesthesia problems: none Family hx anesthesia problems: none Results Review: All pre-operative results and documents have been reviewed as part of the pre- operative evaluation. [facility] Past Medical History Medical History Stenosis of right carotid artery 75 to 90% Type 2 diabetes mellitus Chronic obstructive pulmonary disease Systolic congestive heart failure Pancreatitis Non-tuberculous mycobacterial pneumonia MSSA bacteremia Osteopenia Pseudomonas pneumonia Mycobacterium avium complex Chronic ltsmc-pmabpd-jbhy disease Chronic respiratory failure with hypoxia, on home oxygen therapy Coronary artery disease Pill esophagitis ST elevation (STEMI) myocardial infarction (12/30/22) Chronic anticoagulation Immunocompromised patient patient on anti rejection medications Positive nasal culture for methicillin resistant Staphylococcus aureus Deep venous thrombosis Chronic obstructive pulmonary disease Sciatica Eczema Anxiety Depression Peyronie's disease Emphysema/COPD Acute myeloid leukemia (2008) status post hematopoietic stem cell transplantation with resultant chronic blgio-kzimtp-itmv disease. 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 Code status: Full code. Years smoked: 44 Smoking status: Current some day smoker Tobacco type: cigarettes Additional smoking assessment comments: uses nicotine patches Alcohol intake: never Substance use: never Substance use type: does not use Do You Feel Safe in your Home?: Yes Lack of Transportation: No Lack of Food: Never True Current Housing: I Have Housing Concerned About Future Housing: No Difficulty Paying Gas/Electric Bills: No Difficulty Paying for Meds: No Currently Unemployed: No Education: High School Diploma/GED Difficulty w/ Childcare or Family Care: No Living arrangements: with family Additional living arrangements comments: He lives with his roommate in [place]. Occupation/Education: unemployed Spiritual care concerns: No Agree to blood products: Yes Anes - Eval Final PreProcedure Day of Procedure 04/21/25 10:52 Patient weight: thin Heart: regular rate and rhythm Lungs: clear to auscultation Airway: Mallampati scale class II Neurological: alert and oriented Last oral intake: >/= 8 hours ASA classification: IV Emergent: no Anesthetic plan: proceed Anesthesia type and monitoring: general GIVS and standard monitoring Results Review: All pre-operative results and documents have been reviewed as part of the pre- operative evaluation. Informed Consent: The patient's anesthetic plan and its attendant risks and benefits were discussed with the patient/family/POA. Questions were solicited and answers provided to the satisfaction of the patient/family/POA.
--- NOTE | 2025-04-21 11:04 | SUR.PREOP ---
Spoke with Dr. Palmer regarding patient last POC glucose check. No orders for insulin treatment at this time.
[2025-04-21] MEDS: LACTATED RINGERS 1,000 ML 150 ML IV CONT (11:07)
[2025-04-21 11:13] LABS: Glucose Point of Care 250 mg/dl (65-105)
--- NOTE | 2025-04-21 11:30 | P.CONGI_ITS ---
Assessment and Plan Assessment and plan (1) Dysphagia: Code(s): R13.10 - Dysphagia, unspecified Status: Acute Assessment and Plan: patient with severe dysphagia, worsened in comparison to last evaluation in January this year. Will proceed with EGD. If narrowing is very critical, we will consider referring him to a tertiary care unit for esophageal stent placement. GI Consult Note Consult date/time: 04/21/25 11:30 HPI: Mr. Brady Jones is a 59-year-old male with a complex medical history, notably a prior bone marrow transplant. He initially presented in January with severe dysphagia. AnEGD at that time demonstrated significant inflammation in the upper third of the esophagus. While biopsies were nonspecific, showing significant necrosis, esophageal eqgjq-jsxcli-cnzc disease was considered a hypothesis. Unfortunately, he was lost to follow-up from our service. He now returns with markedly exacerbated dysphagia, unable to tolerate even sips of water. 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% Type 2 diabetes mellitus Chronic obstructive pulmonary disease Systolic congestive heart failure Pancreatitis Non-tuberculous mycobacterial pneumonia MSSA bacteremia Osteopenia Pseudomonas pneumonia Mycobacterium avium complex Chronic iiciw-icjfvg-gbep disease Chronic respiratory failure with hypoxia, on home oxygen therapy Coronary artery disease Pill esophagitis ST elevation (STEMI) myocardial infarction (12/30/22) Chronic anticoagulation Immunocompromised patient patient on anti rejection medications Positive nasal culture for methicillin resistant Staphylococcus aureus Deep venous thrombosis Chronic obstructive pulmonary disease Sciatica Eczema Anxiety Depression Peyronie's disease Emphysema/COPD 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 Code status: Full code. Years smoked: 44 Smoking status: Current some day smoker Tobacco type: cigarettes Additional smoking assessment comments: uses nicotine patches Alcohol intake: never Substance use: never Substance use type: does not use Do You Feel Safe in your Home?: Yes Lack of Transportation: No Lack of Food: Never True Current Housing: I Have Housing Concerned About Future Housing: No Difficulty Paying Gas/Electric Bills: No Difficulty Paying for Meds: No Currently Unemployed: No Education: High School Diploma/GED Difficulty w/ Childcare or Family Care: No Living arrangements: with family Additional living arrangements comments: He lives with his roommate in [place]. Occupation/Education: unemployed Spiritual care concerns: No Agree to blood products: Yes Meds Home Medications and Allergies Home Medications ?Medication ?Instructions ?Recorded ?Confirmed ?Type rivaroxaban 20 mg tablet (Xarelto) 20 mg PO QAM 02/06/23 04/21/25 History acyclovir 400 mg tablet 400 mg PO TID #90 tabs 01/28/24 04/21/25 Rx montelukast 10 mg tablet 10 mg PO HS #30 tabs 01/28/24 04/21/25 Rx (Singulair) mycophenolate mofetil 500 mg tablet 1,000 mg (2 x 500 mg) PO Q12H #10 01/28/24 04/21/25 Rx tabs tacrolimus 0.5 mg capsule, 0.5 mg PO EVERY OTHER DAY #30 caps 01/28/24 04/21/25 Rx immediate-release (Prograf) albuterol sulfate 90 mcg/actuation 1 puff inhalation Q4-6H PRN 10/23/24 04/21/25 History aerosol inhaler Shortness Of Breath Or Wheezing ondansetron 4 mg disintegrating 4 mg PO Q8H PRN Nausea And Vomiting 10/23/24 04/21/25 History tablet pantoprazole 40 mg tablet,delayed 40 mg PO Q12H 10/23/24 04/21/25 History release isavuconazonium sulfate 186 mg 372 mg PO DAILY 11/25/24 04/21/25 History capsule (Cresemba) fluticasone fur. 200 mcg-umeclid 1 inh inhalation DAILY 02/04/25 04/21/25 History 62.5 mcg-vilant 25 mcg inhalat.powder (Trelegy Ellipta) gabapentin 300 mg capsule 300 mg PO QID 02/04/25 04/21/25 History budesonide 2 mg/10 mL oral 10 ml PO QAM AND QPM 60 days 02/10/25 04/21/25 Rx suspension in packet (Eohilia) #1,200 mL ethambutol 400 mg tablet 800 mg (2 x 400 mg) PO DAILY 60 02/11/25 04/21/25 Rx days #120 tabs tamsulosin 0.4 mg capsule 0.4 mg PO QAM #30 caps 02/11/25 04/21/25 Rx albuterol sulfate 2.5 mg/3 mL See Rx Instructions .Route 04/16/25 04/21/25 Rx (0.083 %) solution for nebulization .COMPLEX #180 mL atorvastatin 40 mg tablet 40 mg PO QPM 04/21/25 04/21/25 History Allergies Allergy/AdvReac Type Severity Reaction Status Date / Time adhesive tape AdvReac Unknown PAPER Verified 04/21/25 00:17 TAPE,REDNESS AND IRRITATION Vital Signs Vital Signs - 24 hr 04/20/25 20:45 04/20/25 20:52 04/20/25 20:52 Temperature 98.2 F Pulse Rate 104 H 109 H 108 H Respiratory Rate 20 15 Blood Pressure 105/85 105/85 Pulse Oximetry 92 Oxygen Delivery Nasal Cannula Oxygen Flow Rate 04/20/25 21:01 04/20/25 21:07 04/20/25 21:16 Temperature Pulse Rate 104 H 108 H Respiratory Rate 19 20 Blood Pressure 97/77 L 94/78 L Pulse Oximetry 92 Oxygen Delivery Nasal Cannula Oxygen Flow Rate 5 04/20/25 21:31 04/20/25 21:46 04/20/25 22:17 Temperature Pulse Rate 104 H 93 94 Respiratory Rate 15 20 21 H Blood Pressure 91/76 L 116/77 125/78 Pulse Oximetry 96 100 Oxygen Delivery Oxygen Flow Rate 04/20/25 22:31 04/20/25 22:46 04/20/25 22:46 Temperature Pulse Rate 89 87 Respiratory Rate 12 19 Blood Pressure 133/80 139/83 Pulse Oximetry 100 100 100 Oxygen Delivery Nasal Cannula Oxygen Flow Rate 5 04/20/25 23:01 04/20/25 23:16 04/20/25 23:31 Temperature Pulse Rate 88 88 81 Respiratory Rate 18 18 16 Blood Pressure 125/76 101/68 110/68 Pulse Oximetry 100 100 100 Oxygen Delivery Oxygen Flow Rate 04/20/25 23:46 04/21/25 00:01 04/21/25 00:16 Temperature Pulse Rate 79 82 82 Respiratory Rate 14 16 17 Blood Pressure 116/78 107/72 110/68 Pulse Oximetry 100 100 100 Oxygen Delivery Oxygen Flow Rate 04/21/25 00:31 04/21/25 00:46 04/21/25 01:00 Temperature Pulse Rate 78 78 80 Respiratory Rate 16 16 16 Blood Pressure 124/75 123/75 122/78 Pulse Oximetry 100 100 100 Oxygen Delivery Oxygen Flow Rate 04/21/25 02:47 04/21/25 03:13 04/21/25 06:00 Temperature 96.9 F L Pulse Rate 75 41 L Respiratory Rate 14 18 Blood Pressure 121/77 131/89 Pulse Oximetry 100 100 97 Oxygen Delivery Nasal Cannula Oxygen Flow Rate 5 04/21/25 07:59 04/21/25 07:59 04/21/25 08:00 Temperature Pulse Rate 96 Respiratory Rate 14 Blood Pressure Pulse Oximetry 98 98 Oxygen Delivery Nasal Cannula Nasal Cannula Oxygen Flow Rate 5 5 04/21/25 11:09 Temperature 98.1 F Pulse Rate 81 Respiratory Rate 17 Blood Pressure 108/60 Pulse Oximetry 100 Oxygen Delivery Nasal Cannula Oxygen Flow Rate 4 Exam 2 Narrative: Very cachectic aspect, cooperative, oriented x3. No palpable cervical lymph nodes. Abdomen: Soft, nontender, no hepatosplenomegaly. Rest of the exam within normal limits. Results Labs 04/21/25 05:59 04/21/25 05:59 Labs: Short CBC 04/20/25 04/21/25 Range/Units 21:00 05:59 WBC 10.6 H 5.1 (4.5-10.0) K/mm3 Hgb 10.6 L 9.8 L (14.0-18.0) g/dL Hct 32.5 L 30.5 L (42.0-52.0) % Plt Count 362 343 (150-375) k/mm3 [facility] 04/20/25 04/21/25 21:00 05:59 Sodium 137 138 Potassium 3.8 3.9 Chloride 95 L 101 Carbon Dioxide 33 H 32 H BUN 18 16 Creatinine 0.73 0.58 L Glucose 149 H 260 H Calcium 9.6 8.6 Liver Function 04/20/25 Range/Units 21:00 Total Bilirubin 1.1 (0.2-1.3) mg/dL AST 31 (17-59) U/L ALT 19 (6-50) U/L Alkaline Phosphatase 115 (38-126) U/L Albumin 3.6 (3.5-5.1) g/dL
[2025-04-21] MEDS: BENZOCAINE (*SP) 60 ML SPRAY CAN (HURRICAINE) 1 SPRAY MUCOUS MEM (11:43)
[2025-04-21 12:10] LABS: Glucose Point of Care 211 mg/dl (65-105)
[2025-04-21] MEDS: ETHAMBUTOL HCL 400 MG TABLET 800 MG PO (13:12)
[2025-04-21] MEDS: TACROLIMUS 0.5 MG CAPSULE PO (13:12)
[2025-04-21] MEDS: ACYCLOVIR 400 MG TABLET PO ×2 (13:13→20:36)
[2025-04-21] MEDS: GABAPENTIN 300 MG CAPSULE PO ×3 (13:16→20:35)
[2025-04-21] MEDS: TAMSULOSIN HCL 0.4 MG CAPSULE PO (13:16)
[2025-04-21] MEDS: oxyCODONE HCL (*CRX) 2.5 MG TAB IR PO (14:47)
[2025-04-21 17:05] LABS: Glucose Point of Care 349 mg/dl (65-105)
[2025-04-21] MEDS: ATORVASTATIN 40 MG TABLET PO (17:10)
[2025-04-21 20:12] LABS: Glucose Point of Care 309 mg/dl (65-105)
[2025-04-21] MEDS: PANTOPRAZOLE 40 MG TABLET PO (20:35)
[2025-04-21] MEDS: MONTELUKAST SODIUM 10 MG TABLET PO (20:35)
[2025-04-21] MEDS: mycophenolate mofetiL 250 MG CAPSULE 1000 MG PO (20:36)
[2025-04-22] VITALS (7 sets, daily range): BP systolic 93–100; BP diastolic 55–62; PULSE 77–88; RESP 14–20; TEMP 36.1–36.5; O2SAT 94–100
[2025-04-22] MEDS: oxyCODONE HCL (*CRX) 2.5 MG TAB IR PO (00:31)
[2025-04-22] MEDS: ACYCLOVIR 400 MG TABLET PO ×2 (05:27→12:17)
--- NOTE | 2025-04-22 06:49 | P.CDI_ITS ---
CDI Query Clarification Request BMI: 17.7 Nutritional Diagnostic Statement: Please refer to the comprehensive nutrition assessment for further information. If you agree with diagnosis of Severe protein calorie malnutrition related to chronic loss of appetite as evidenced by inakes <75% needs >1 month; weight loss 16%/6 months, 14%/3 months; severe muscle wasting and fat loss. Please specify severity if known: * Mild * Moderate * Severe * Other/Unknown <Silva Tovar RN - Last Filed: 04/22/25 06:51> Clarified Diagnosis Clarified Diagnosis: Agree with diagnosis of severe protein calorie malnutrition, appreciate further recommendations <Brandt Ferguson PA-C - Last Filed: 04/22/25 06:56>
[2025-04-22 07:46] LABS: Basophils Percent Auto 0.2 % (0.2-1.2); Eosinophils Percent Auto 0.1 % (0-4.4); Hematocrit 25.8 % (42.0-52.0); Hemoglobin 8.3 g/dL (14.0-18.0); Immature Granulocyte Absolute 0.14 K/mm3 (0.00-0.031); Immature Granulocyte Percent A 0.9 % (0-0.5); Lymphocytes Absolute Auto 1.98 K/mm3 (0.9-3.2); Lymphocytes Percent Auto 12.6 % (18.3-44.2); Mean Corpuscular HGB Conc 32.2 g/dl (32-36); Mean Corpuscular Hemoglobin 34.4 pg (26-34); Mean Corpuscular Volume 107.1 fl (80-100); Mean Platelet Volume 10.7 fl (7.4-10.4); Monocytes Absolute Auto 0.7 K/mm3 (0.1-0.6); Monocytes Percent Auto 4.4 % (2.6-8.5); Neutrophils Absolute Auto 12.9 K/mm3 (1.3-6.7); Neutrophils Percent Auto 81.8 % (45.5-73.1); Nucleated Red Blood Cells Perc 0.2 % (0.0-0.2); Platelet Count Result 311 k/mm3 (150-375); Red Blood Count 2.41 M/mm3 (4.6-6.20); Red Cell Distribution Width 13.1 % (11.5-14.5); White Blood Count 15.7 K/mm3 (4.5-10.0)
[2025-04-22 07:47] LABS: Glucose Point of Care 122 mg/dl (65-105)
[2025-04-22 08:23] LABS: Hypochromasia 1+; Macrocytosis 1+ (NORMAL); Ovalocytes 1+; Platelet Estimate Adequate (Adequate); Schistocytes Rare
[2025-04-22 08:27] LABS: Alanine Aminotransferase 10 U/L (6-50); Albumin Level 2.7 g/dL (3.5-5.1); Alkaline Phosphatase 80 U/L (38-126); Anion Gap 4 mmol/L (4-12); Aspartate Amino Transferase 22 U/L (17-59); Bilirubin,Total 0.5 mg/dL (0.2-1.3); Blood Urea Nitrogen 12 mg/dL (9-20); Calcium 8.3 mg/dL (8.4-10.2); Carbon Dioxide 30 mmol/L (22-30); Chloride 100 mmol/L (98-107); Estimated CRCL calculation 94 ml/min; Estimated Glomerular Filt Rate > 60; Glucose 106 mg/dL (65-110); Potassium 3.4 mmol/L (3.4-5.0); Sodium 134 mmol/L (137-145); Total Protein 6.5 g/dL (6.3-8.2)
[2025-04-22] MEDS: ALBUTEROL SULFATE NEB 2.5 MG/3 ML INH INHALATION ×2 (08:50→14:38)
[2025-04-22] MEDS: FLUTICASONE/UMECLIDIN/VILANTER 200-62.5-25 MCG ELLIPTA 1 PUFF INHALATION (08:50)
[2025-04-22] MEDS: TAMSULOSIN HCL 0.4 MG CAPSULE PO (09:42)
[2025-04-22] MEDS: ETHAMBUTOL HCL 400 MG TABLET 800 MG PO (09:42)
[2025-04-22] MEDS: mycophenolate mofetiL 250 MG CAPSULE 1000 MG PO (09:42)
[2025-04-22] MEDS: GABAPENTIN 300 MG CAPSULE PO ×2 (09:42→12:17)
[2025-04-22] MEDS: PANTOPRAZOLE 40 MG TABLET PO (09:42)
--- NOTE | 2025-04-22 10:12 | WPDANESPN ---
Anes - Prog Note Post-Op Date/Time: 04/22/25 10:12 Cardiovascular status: normal Respiratory status: normal Airway patency: baseline Mental status: baseline Post-Op hydration status: normal Vital Signs: Last Vital Signs Temp 96.9 F L 04/22/25 05:04 Pulse 77 04/22/25 05:04 Resp 14 04/22/25 05:04 BP 93/55 L 04/22/25 05:04 Pulse Ox 99 04/22/25 05:04 O2 Del Method Nasal Cannula 04/21/25 20:20 O2 Flow Rate 5 04/21/25 20:20 Pain Score (VAS): 0/10 I/O: Intake & Output 04/21/25 04/22/25 04/22/25 23:59 07:59 15:59 Intake Total 400 620 240 Output Total 900 200 Balance 400 -280 40 Laboratory Tests 04/22/25 07:35 04/22/25 07:35 04/21/25 04/21/25 04/21/25 10:48 12:06 17:02 WBC RBC Hgb Hct MCV MCH MCHC RDW Plt Count MPV Immature Gran % (Auto) Neut % (Auto) Lymph % (Auto) Pender % (Auto) Eos % (Auto) Baso % (Auto) Lymph # (Auto) Pender # (Auto) Eos # (Auto) Baso # (Auto) Abs Immat Gran (auto) Absolute Neuts (auto) Absolute Nucleated RBC Band Neutrophils % Nucleated RBC % Platelet Estimate Hypochromasia Macrocytosis Ovalocytes Schistocytes Sodium Potassium Chloride Carbon Dioxide Anion Gap BUN Creatinine Estim Creat Clear Calc Estimated GFR Glucose POC Capillary Glucose 250 H 211 H 349 H Calcium Total Bilirubin AST ALT Alkaline Phosphatase Total Protein Albumin 04/21/25 04/22/25 04/22/25 19:33 07:21 07:35 WBC 15.7 H RBC 2.41 L Hgb 8.3 L Hct 25.8 L MCV 107.1 H MCH 34.4 H MCHC 32.2 RDW 13.1 Plt Count 311 MPV 10.7 H Immature Gran % (Auto) 0.9 H Neut % (Auto) 81.8 H Lymph % (Auto) 12.6 L Pender % (Auto) 4.4 Eos % (Auto) 0.1 Baso % (Auto) 0.2 Lymph # (Auto) 1.98 Pender # (Auto) 0.7 H Eos # (Auto) 0.0 Baso # (Auto) 0.0 Abs Immat Gran (auto) 0.14 H Absolute Neuts (auto) 12.9 H Absolute Nucleated RBC 0.030 H Band Neutrophils % Not Reportable Nucleated RBC % 0.2 Platelet Estimate Adequate Hypochromasia 1+ Macrocytosis 1+ Ovalocytes 1+ Schistocytes Rare Sodium 134 L Potassium 3.4 Chloride 100 Carbon Dioxide 30 Anion Gap 4 BUN 12 Creatinine 0.59 L Estim Creat Clear Calc 94 Estimated GFR > 60 Glucose 106 POC Capillary Glucose 309 H 122 H Calcium 8.3 L Total Bilirubin 0.5 AST 22 ALT 10 Alkaline Phosphatase 80 Total Protein 6.5 Albumin 2.7 L Post-procedural complaints: none Patient Feedback: Patient satisfied with anesthetic care.
[2025-04-22 11:22] LABS: Glucose Point of Care 256 mg/dl (65-105)
--- NOTE | 2025-04-22 11:26 | PM.DS ---
DS: Admitting Diagnosis Discharge Date 04/22/2025 Admitting Diagnosis Dysphagia DS: Discharge Diagnosis Discharge Diagnosis (1) Dysphagia: Code(s): R13.10 - Dysphagia, unspecified Status: Acute (2) Type 2 diabetes mellitus: Code(s): E11.9 - Type 2 diabetes mellitus without complications Status: Acute (3) Systolic congestive heart failure: Code(s): I50.20 - Unspecified systolic (congestive) heart failure Status: Acute (4) Hypertension: Qualifiers: Hypertension type: primary hypertension Qualified Code(s): I10 - Essential (primary) hypertension Code(s): I10 - Essential (primary) hypertension Status: Acute (5) Anemia: Code(s): D64.9 - Anemia, unspecified Status: Acute (6) Stenosis of right carotid artery: Code(s): I65.21 - Occlusion and stenosis of right carotid artery Status: Acute DS: Summary Hospital Course Reason for hospitalization: Dysphagia Hospital Course: This is a pleasant 59-year-old male with a complicated medical history which includes chronic respiratory failure on home oxygen, chronic obstructive pulmonary disease, pulmonary embolism, Pseudomonas pneumonia, cavitary pulmonary mycobacterium avium complex, acute myeloid leukemia in remission status post hematopoietic stem cell transplantation in 2008 with resultant chronic nozjh-uyrdka-fzho disease on anti rejection medications and antifungal prophylaxis, coronary artery disease, congestive heart failure with reduced ejection fraction, and type 2 diabetes mellitus who presented to the emergency department via EMS for evaluation of shortness of breath and difficulty swallowing. Yesterday morning at about 11:00 he noticed that he was having difficulty swallowing and was feeling increasingly short of breath from baseline. He came in last evening as he has not been able to tolerate liquids or solids the last 24 hours or so. He has had similar symptoms in the past and last EGD showed changes of the esophagus consistent with chronic cxsgo-qzglxr-kjna disease. He denies fever, chills, sweats, vomiting, chest pain, pleuritic pain, and productive cough. He also denies syncope, near syncope, pleuritic pain, palpitations, edema, and calf pain. In the ED: Vital signs on arrival include a temperature of 98.2?, blood pressure 105/85, pulse 104, respiratory 20, SpO2 92% on his usual 5 L. Labs are significant for WBC count 10.6, hemoglobin 10.6, BUN 18, creatinine 0.73, glucose 149. He was negative for influenza, RSV, and COVID. Chest CTA was negative for pulmonary embolism but showed a soft tissue density in the mid esophagus with dilated esophagus proximal to that area. Soft tissue neck CT showed similar findings in addition to severe narrowing of the right carotid artery about 75 to 90%. He was given a nebulizer treatment and a dose of Solu-Medrol. He is being admitted in this setting for GI consultation for probable EGD later this morning. GI was consulted regarding dysphagia/esophageal mass/graft vs host disease/esophagitis, who recommended an EGD given CTA of soft tissue of neck revealing soft tissue density midesophagus with dilated upper esophageal proximal to this area. Given the concern for esophageal mass, EGD was performed on 04/21 which showed a food bolus which appeared at the depth 35 cm from incisors. This bolus was cleared and the stenosis was traversed and dilation was performed. Patient overall tolerated the procedure well and when discussed with GI regarding follow-up, Dr. Ledesma is cleared the patient for discharge with appropriate GI follow-up in the outpatient setting. Patient is otherwise hemodynamically stable and was able to tolerate clear liquids after the procedure and was given solid foods and was able to pass with some mild discomfort but overall patient was okay with discharge home at this point. Further injections clear regarding careful advancement of diet and importance of maintaining an upright position during meals. He will be given the followup information for GI and instructed to follow up with their office. No gross Electrolyte abnormalities were appreciated, although he did have some mild leukocytosis, this is likely secondary to procedure. Patient otherwise hemodynamically stable for discharge at this time. Status at Discharge Overall status at discharge: patient is progressing back to baseline Time Spent with Patient Time attestation: Total time spent providing and/or coordinating discharge services:35 Exam Narrative: General: Cachectic, chronically ill-appearing male in the semi-Grider position in bed. Weight: 50 kg. BMI: 15.4. HEENT: Slightly hard of hearing. PERRL, EOMI. Sclera anicteric. Oral mucosa is tacky. Neck: Supple. No JVD or lymphadenopathy. Full ornelas. Respiratory: Currently on 5 L nasal cannula. Lung sounds are diminished throughout with occasional rhonchi. Cardiovascular: Regular rate and rhythm with S1-S2. Gastrointestinal: Abdomen is soft, scaphoid, nontender, and nondistended with positive bowel sounds. Skin: Warm and dry. No rash or lesions on limited exam. Extremities: No cyanosis, clubbing, or edema. Palpable pulses. Neurological: Alert. Cranial nerves 2-12 are grossly intact. No gross focal deficits to casual conversation. Psychiatric: Pleasant and cooperative with appropriate mood and affect. He is in good spirits. DS: Data Data Completed and Pending Labs on day of discharge: Labs from last 24 hours 04/22/25 04/22/25 04/22/25 11:19 07:35 07:21 WBC 15.7 H RBC 2.41 L Hgb 8.3 L Hct 25.8 L MCV 107.1 H MCH 34.4 H MCHC 32.2 RDW 13.1 Plt Count 311 MPV 10.7 H Immature Gran % (Auto) 0.9 H Neut % (Auto) 81.8 H Lymph % (Auto) 12.6 L Pine % (Auto) 4.4 Eos % (Auto) 0.1 Baso % (Auto) 0.2 Lymph # (Auto) 1.98 [place] # (Auto) 0.7 H Eos # (Auto) 0.0 Baso # (Auto) 0.0 Abs Immat Gran (auto) 0.14 H Absolute Neuts (auto) 12.9 H Absolute Nucleated RBC 0.030 H Band Neutrophils % Not Reportable Nucleated RBC % 0.2 Platelet Estimate Adequate Hypochromasia 1+ Macrocytosis 1+ Ovalocytes 1+ Schistocytes Rare Sodium 134 L Potassium 3.4 Chloride 100 Carbon Dioxide 30 Anion Gap 4 BUN 12 Creatinine 0.59 L Estim Creat Clear Calc 94 Estimated GFR > 60 Glucose 106 POC Capillary Glucose 256 H 122 H Calcium 8.3 L Total Bilirubin 0.5 AST 22 ALT 10 Alkaline Phosphatase 80 Total Protein 6.5 Albumin 2.7 L 04/21/25 04/21/25 04/21/25 19:33 17:02 12:06 WBC RBC Hgb Hct MCV MCH MCHC RDW Plt Count MPV Immature Gran % (Auto) Neut % (Auto) Lymph % (Auto) Pine % (Auto) Eos % (Auto) Baso % (Auto) Lymph # (Auto) [place] # (Auto) Eos # (Auto) Baso # (Auto) Abs Immat Gran (auto) Absolute Neuts (auto) Absolute Nucleated RBC Band Neutrophils % Nucleated RBC % Platelet Estimate Hypochromasia Macrocytosis Ovalocytes Schistocytes Sodium Potassium Chloride Carbon Dioxide Anion Gap BUN Creatinine Estim Creat Clear Calc Estimated GFR Glucose POC Capillary Glucose 309 H 349 H 211 H Calcium Total Bilirubin AST ALT Alkaline Phosphatase Total Protein Albumin Discharge Plan Discharge Attending physician on discharge: Regina Marino Consulting providers: Brandt Ferguson; Raymon Lambert Discharging Clinician: Brandt Ferguson Anticipated Discharge Date/Time: 04/22/25 11:23 Patient Disposition: Home Activity: as tolerated Diet: as tolerated Discharge Instructions: Discharge disposition: Stable Take medications as prescribed Monitor blood pressures Take caution while standing, rising, or moving Change positions slowly taking a break between each position change If you standing feel dizzy sit back down and take a break Encouraged to continue with yearly vaccinations Return to the emergency department if he developed sudden shortness of breath, chest pain, nausea, vomiting, upset stomach or intractable diarrhea Return to the emergency department if you develop fever greater than 101.5 Follow-up with the primary care physician within 1-2 weeks Thank you for choosing [facility] for your healthcare needs Patient Instructions: Antibiotic Form, Rivaroxaban (By mouth), Heart Failure (GEN) Patient Language: Zambian Stand Alone Forms: General Discharge Information Follow-up/Referrals: Raymon Lambert MD [Physician] - Kirt Lindsay DO [Primary Care Provider] - Discharge Medications: Continued Xarelto 20 mg tablet 20 mg PO QAM Rx Instructions: must administer with evening meal Cresemba 186 mg capsule 372 mg PO DAILY atorvastatin 40 mg tablet 40 mg PO QPM pantoprazole 40 mg tablet,delayed release (DR/EC) 40 mg PO Q12H ondansetron 4 mg tablet,disintegrating 4 mg PO Q8H PRN (Reason: Nausea And Vomiting) albuterol sulfate 90 mcg/actuation HFA aerosol inhaler 1 puff INHALATION Q4-6H PRN (Reason: Shortness Of Breath Or Wheezing) gabapentin 300 mg capsule 300 mg PO QID Rx Instructions: takes at 0900/1300/1700/2100 Trelegy Ellipta 200-62.5-25 mcg blister with device 1 inh inhalation DAILY tamsulosin 0.4 mg Capsule 0.4 mg PO QAM Qty: 30 0RF ethambutol 400 mg tablet 800 mg PO DAILY 60 Days Qty: 120 0RF acyclovir 400 mg tablet 400 mg PO TID Qty: 90 0RF montelukast [Singulair] 10 mg tablet 10 mg PO HS Qty: 30 0RF mycophenolate mofetil 500 mg tablet 1,000 mg PO Q12H Qty: 10 0RF Rx Instructions: Please call your Oncology to send prescription for this medication and adjust the dose tacrolimus [Prograf] 0.5 mg capsule 0.5 mg PO EVERY OTHER DAY Qty: 30 0RF Eohilia 2 mg/10 mL suspension in packet 10 ml PO QAM AND QPM 60 Days Qty: 1200 2RF albuterol sulfate 2.5 mg /3 mL (0.083 %) solution for nebulization See Rx Instructions .ROUTE .COMPLEX Qty: 180 0RF Dose Instruction: INHALE 1 VIAL VIA NEBULIZER EVERY 6 HOURS NEEDED FOR SHORTNESS OF BREATH Rx Instructions: INHALE 1 VIAL VIA NEBULIZER EVERY 6 HOURS NEEDED FOR SHORTNESS OF BREATH Date of admission: 04/21/25 00:06 Primary Care Provider: Kirt Lindsay Admitting Provider: Osito Carlos Attending physician on admission: Osito Carlos Condition: Stable Quality VTE Prophylaxis VTE prophylaxis: mechanical ordered
[2025-04-22] MEDS: INSULIN ASPART (*BKC) 100 UNITS/ML SUB-Q (12:15)
[2025-04-22] MEDS: LOPERAMIDE HCL 2 MG CAPSULE 4 MG PO (12:39)
--- NOTE | 2025-04-22 15:49 | P.PNGI_ITS ---
Progress Note: A&P Assessment and Plan (1) Dysphagia: Code(s): R13.10 - Dysphagia, unspecified Status: Acute Assessment and Plan: egd yesterday with food bolus and then dilated he understands that only can eat small pieces at time and soft/pureed diet will set up egd in 4-6 weeks to reassess and consider further dilation (2) Food impaction of esophagus: Code(s): T18.128A - Food in esophagus causing other injury, initial encounter; [id number].F3XA - Food entering into or through a natural orifice, initial encounter Status: Inactive (3) Chronic respiratory failure with hypoxia, on home O2 therapy: Code(s): J96.11 - Chronic respiratory failure with hypoxia; Z99.81 - Dependence on supplemental oxygen Status: Inactive (4) Chronic ckmso-rhdlmi-lwcm disease: Code(s): D89.811 - Chronic bzzpw-nfqriw-kiml disease Status: Acute (5) Immunocompromised patient: Code(s): D84.9 - Immunodeficiency, unspecified Status: Acute Subjective Date/time seen: 04/22/25 15:49 Interval history: had food bolus that was removed and then esophageal stenosis dilated yesterday, earlier today had sandwich that got stuck but then passed down and he is doing great now, ready to go home Review of Systems Review of Systems: All systems reviewed & are unremarkable except as noted in HPI and below Exam Const: General: no acute distress Other: cachectic, in good spirits HENMT: Face/Nose/Sinus: Normal nares present Eyes: General: appearance normal, both eyes and all related structures Neck: Neck: supple Resp: Effort & Inspection: normal respiratory effort Cardio: Rate: regular rate Rhythm: regular rhythm GI: GI Palp: Yes Soft to palpation Auscultation: normal bowel sounds : General: Yes bladder normal to palpation Skin: General skin exam: normal color Neuro: Speech: normal speech Extrem: General: no pedal edema Psych: Mental Status: mental status grossly normal Objective Data Vital Signs Vital Signs: Vital Signs - 24 hr 04/21/25 20:15 04/21/25 20:20 04/21/25 20:25 Temperature Pulse Rate 84 86 Respiratory Rate 16 16 Blood Pressure Pulse Oximetry 97 Oxygen Delivery Nasal Cannula Oxygen Flow Rate 5 04/21/25 20:41 04/22/25 05:04 04/22/25 08:00 Temperature 97.1 F L 96.9 F L Pulse Rate 87 77 Respiratory Rate 16 14 Blood Pressure 108/60 93/55 L Pulse Oximetry 91 99 97 Oxygen Delivery Nasal Cannula Oxygen Flow Rate 5 04/22/25 08:50 04/22/25 08:50 04/22/25 09:00 Temperature Pulse Rate 86 82 Respiratory Rate 20 20 Blood Pressure Pulse Oximetry 97 Oxygen Delivery Nasal Cannula Oxygen Flow Rate 5 04/22/25 14:00 04/22/25 14:38 04/22/25 14:38 Temperature 97.7 F Pulse Rate 84 88 Respiratory Rate 16 20 Blood Pressure 100/62 Pulse Oximetry 100 94 Oxygen Delivery Nasal Cannula Oxygen Flow Rate 5 04/22/25 14:51 Temperature Pulse Rate 86 Respiratory Rate 20 Blood Pressure Pulse Oximetry Oxygen Delivery Oxygen Flow Rate Intake/Output Intake/Output: Intake & Output 04/19/25 04/20/25 04/21/25 04/22/25 23:59 23:59 23:59 23:59 Intake Total 1000 1566.7 860 Output Total 200 1100 Balance 1000 1366.7 -240 Meds/Results Medications: Active Medications Generic Name Dose Route Start Last Admin Trade Name Freq PRN Reason Stop Dose Admin Acyclovir 400 mg 04/21/25 09:00 04/22/25 12:17 Acyclovir 400 Mg Tablet PO 400 mg Q8HR ROSA MARIA Administration Albuterol 2.5 mg 04/21/25 08:00 04/22/25 14:38 Albuterol Sulfate Neb 2.5 Mg/3 Ml Inh INHALATION 2.5 mg Q6HRT ROSA MARIA Administration Albuterol 1 puff 04/21/25 04:43 Albuterol Sulfate (*Sp) Aerosol 1 Puff INHALATION Q4HRT PRN Shortness Of Breath Or Wheezing Atorvastatin Calcium 40 mg 04/21/25 18:00 04/21/25 17:10 Atorvastatin 40 Mg Tablet PO 40 mg QPM ROSA MARIA Administration Dextrose 12.5 gm 04/21/25 04:45 Dextrose 50% 25 Gm/50 Ml Syringe IV PUSH PRN PRN Hypoglycemia Protocol Ethambutol HCl 800 mg 04/21/25 09:00 04/22/25 09:42 Ethambutol Hcl 400 Mg Tablet PO 800 mg DAILY ROSA MARIA Administration Fluticasone/Umeclidinium/Vilanterol 1 puff 04/21/25 08:00 04/22/25 08:50 Fluticasone/Umeclidin/Vilanter 200-62.5-25 Mcg Ellipta INHALATION 1 puff DAILYRT ROSA MARIA Administration Gabapentin 300 mg 04/21/25 09:00 04/22/25 12:17 Gabapentin 300 Mg Capsule PO 300 mg QID ROSA MARIA Administration Glucagon 1 mg 04/21/25 04:45 Glucagon For Inj 1 Mg Vial IM PRN PRN Hypoglycemia Protocol Glucose 15 gm 04/21/25 04:45 Glucose Oral Gel 15 Gm Of Glucse In 37.5 Gm Tube PO PRN PRN Hypoglycemia Protocol Dextrose 1,000 mls @ 100 mls/hr 04/21/25 04:45 Dextrose 5% 1,000 Ml IVPB PRN PRN Hypoglycemia Protocol Insulin Aspart 1 - 2 units 04/21/25 21:00 04/21/25 20:34 Insulin Aspart (*Bkc) 100 Units/Ml SUB-Q 2 units HS ROSA MARIA Administration Protocol Insulin Aspart 2 - 5 units 04/21/25 17:00 04/22/25 12:15 Insulin Aspart (*Bkc) 100 Units/Ml SUB-Q 3 units TIDWM ROSA MARIA Administration Protocol Miscellaneous Information 1 each 04/21/25 00:01 Isavuconazonium Sulfate [Cresemba] 186 Mg Capsule) Is Nonformulary, Can Patient Bring From XX 05/21/25 00:00 CLARIFY [facility] Miscellaneous Information 1 each 04/21/25 00:01 Budesonide [Eohilia] 2 Mg/10 Ml Suspension In Packet) Is Nonformulary, Can Patient Bring F XX 05/21/25 00:00 CLARIFY ROSA MARIA Montelukast Sodium 10 mg 04/21/25 21:00 04/21/25 20:35 Montelukast Sodium 10 Mg Tablet PO 10 mg HS ROSA MARIA Administration Mycophenolate Mofetil 1,000 mg 04/21/25 09:00 04/22/25 09:42 Mycophenolate Mofetil 250 Mg Capsule PO 1,000 mg Q12HR ROSA MARIA Administration Non-Formulary Medication 10 ml 04/21/25 04:45 Budesonide [Eohilia] PO 05/21/25 04:44 QAM AND QPM ROSA MARIA Non-Formulary Medication 372 mg 04/21/25 09:00 Isavuconazonium Sulfate [Cresemba] PO 05/21/25 08:59 DAILY ROSA MARIA Ondansetron HCl 4 mg 04/21/25 00:06 Ondansetron Inj 4 Mg/2 Ml Vial IV PUSH Q4H PRN Nausea Oxycodone HCl 2.5 mg 04/21/25 14:11 04/22/25 00:31 Oxycodone Hcl (*Crx) 2.5 Mg Tab Ir PO 2.5 mg Q4H PRN Administration Pain Rated 7-10 Pantoprazole Sodium 40 mg 04/21/25 09:00 04/22/25 09:42 Pantoprazole 40 Mg Tablet PO 40 mg Q12HR ROSA MARIA Administration Tacrolimus 0.5 mg 04/21/25 09:00 04/21/25 13:12 Tacrolimus 0.5 Mg Capsule PO 0.5 mg Q48H ROSA MARIA Administration Tamsulosin HCl 0.4 mg 04/21/25 09:00 04/22/25 09:42 Tamsulosin Hcl 0.4 Mg Capsule PO 0.4 mg QAM ROSA MARIA Administration Radiology Results: ITS Impressions Chest X-Ray 04/20/25 21:24 IMPRESSION: No acute cardiopulmonary pathology. Chest CTA 04/20/25 23:01 IMPRESSION: 1. No pulmonary embolism. 2. Cavitary changes in the right apical area unchanged. 3. Soft tissue density in the mid esophagus. Esophagoscopy is advised to exclude a mass. Dilated upper esophagus is seen proximal to this area 4. Atelectatic changes in the lung bases posteriorly. 5. Underlying emphysematous changes. CTA chest PE protocol, CT soft tissue neck w con Ordering provider: Myla Gilbert MD History: 59 years Male with . SOB, hx COPD; also diff swallowing . Comparison: None. Technique: CT soft tissues neck was performed with contrast. . Automated exposure control and iterative reconstruction technique were employed. The dose- length product was 203.64 (accession [id number]), 349.26 (accession [id number]) mGy-cm. 100 mL Omnipaque 350 was given IV. Findings: LOWER HEAD: The visualized brain parenchyma, optic globes/orbits and mastoids are normal. Bilateral mastoid air cell effusion. Bilateral sphenoid sinus disease. Dilated upper esophagus is noted with soft tissue density seen in the mid esophagus better seen with the chest study. SALIVARY GLANDS: Normal. THYROID: Normal. SUPRAHYOID DEEP SPACES: Normal. CAROTID ARTERIES: Atherosclerotic changes. The right is severely narrowed at the bifurcation of about 90%. JUGULAR VEINS: Normal. The right is smaller in size. TONSILS: Normal. ORAL CAVITY: normal as visualized. PHARYNX, LARYNX AND TRACHEA: Patent and normal. No prevertebral soft tissue swelling. SUPERFICIAL SOFT TISSUES: Normal. No lymphadenopathy or neck mass. SKELETAL: Normal. IMPRESSION: Dilated esophagus with soft tissue density seen in the mid esophagus. Severe narrowing of the right carotid artery of about 75-90%. Other appearances as described above. Dr. Gilbert was notified with the result of the patient at 11:30 PM on April 20, [address] 04/20/25 23:01 IMPRESSION: 1. No pulmonary embolism. 2. Cavitary changes in the right apical area unchanged. 3. Soft tissue density in the mid esophagus. Esophagoscopy is advised to exclude a mass. Dilated upper esophagus is seen proximal to this area 4. Atelectatic changes in the lung bases posteriorly. 5. Underlying emphysematous changes. CTA chest PE protocol, CT soft tissue neck w con Ordering provider: Myla Gilbert MD History: 59 years Male with . SOB, hx COPD; also diff swallowing . Comparison: None. Technique: CT soft tissues neck was performed with contrast. . Automated exposure control and iterative reconstruction technique were employed. The dose- length product was 203.64 (accession [id number]), 349.26 (accession [id number]) mGy-cm. 100 mL Omnipaque 350 was given IV. Findings: LOWER HEAD: The visualized brain parenchyma, optic globes/orbits and mastoids are normal. Bilateral mastoid air cell effusion. Bilateral sphenoid sinus disease. Dilated upper esophagus is noted with soft tissue density seen in the mid esophagus better seen with the chest study. SALIVARY GLANDS: Normal. THYROID: Normal. SUPRAHYOID DEEP SPACES: Normal. CAROTID ARTERIES: Atherosclerotic changes. The right is severely narrowed at the bifurcation of about 90%. JUGULAR VEINS: Normal. The right is smaller in size. TONSILS: Normal. ORAL CAVITY: normal as visualized. PHARYNX, LARYNX AND TRACHEA: Patent and normal. No prevertebral soft tissue swelling. SUPERFICIAL SOFT TISSUES: Normal. No lymphadenopathy or neck mass. SKELETAL: Normal. IMPRESSION: Dilated esophagus with soft tissue density seen in the mid esophagus. Severe narrowing of the right carotid artery of about 75-90%. Other appearances as described above. Dr. Gilbert was notified with the result of the patient at 11:30 PM on April 20, 2020 Labs Labs: Laboratory Results - last 24 hr 04/21/25 04/21/25 04/22/25 17:02 19:33 07:21 WBC RBC Hgb Hct MCV MCH MCHC RDW Plt Count MPV Immature Gran % (Auto) Neut % (Auto) Lymph % (Auto) [place] % (Auto) Eos % (Auto) Baso % (Auto) Lymph # (Auto) [place] # (Auto) Eos # (Auto) Baso # (Auto) Abs Immat Gran (auto) Absolute Neuts (auto) Absolute Nucleated RBC Band Neutrophils % Nucleated RBC % Platelet Estimate Hypochromasia Macrocytosis Ovalocytes Schistocytes Sodium Potassium Chloride Carbon Dioxide Anion Gap BUN Creatinine Estim Creat Clear Calc Estimated GFR Glucose POC Capillary Glucose 349 H 309 H 122 H Calcium Total Bilirubin AST ALT Alkaline Phosphatase Total Protein Albumin 04/22/25 04/22/25 07:35 11:19 WBC 15.7 H RBC 2.41 L Hgb 8.3 L Hct 25.8 L MCV 107.1 H MCH 34.4 H MCHC 32.2 RDW 13.1 Plt Count 311 MPV 10.7 H Immature Gran % (Auto) 0.9 H Neut % (Auto) 81.8 H Lymph % (Auto) 12.6 L [place] % (Auto) 4.4 Eos % (Auto) 0.1 Baso % (Auto) 0.2 Lymph # (Auto) 1.98 [place] # (Auto) 0.7 H Eos # (Auto) 0.0 Baso # (Auto) 0.0 Abs Immat Gran (auto) 0.14 H Absolute Neuts (auto) 12.9 H Absolute Nucleated RBC 0.030 H Band Neutrophils % Not Reportable Nucleated RBC % 0.2 Platelet Estimate Adequate Hypochromasia 1+ Macrocytosis 1+ Ovalocytes 1+ Schistocytes Rare Sodium 134 L Potassium 3.4 Chloride 100 Carbon Dioxide 30 Anion Gap 4 BUN 12 Creatinine 0.59 L Estim Creat Clear Calc 94 Estimated GFR > 60 Glucose 106 POC Capillary Glucose 256 H Calcium 8.3 L Total Bilirubin 0.5 AST 22 ALT 10 Alkaline Phosphatase 80 Total Protein 6.5 Albumin 2.7 L
== END 2025-04-22 16:10 | disposition home or self-care (01) ==
LOC: ANHED 04-21 00:08 → ANH3MEDSUR 04-21 00:43
PROVIDERS: Internal Medicine Gastroenterology; Physician Assistant; Admitting Provider Internal Medicine; Emergency Provider Student in an Organized Health Care Education/Training Program; PCP Internal Medicine; Visit Provider Physician Assistant
PROC: 0DJ08ZZ Inspection of Upper Intestinal Tract, Via Natural or Artificial Opening Endoscopic (ICD-10-PCS; CPT 43247; principal; 2025-04-21 15:00)
DX: T18.128A Food in esophagus causing other injury, initial encounter (principal); W44.F3XA Food entering into or through a natural orifice, initial encounter; K22.2 Esophageal obstruction; D84.9 Immunodeficiency, unspecified; D89.811 Chronic graft-versus-host disease; E43 Unspecified severe protein-calorie malnutrition; Z68.1 Body mass index [BMI] 19.9 or less, adult; E11.42 Type 2 diabetes mellitus with diabetic polyneuropathy; F17.210 Nicotine dependence, cigarettes, uncomplicated; I65.21 Occlusion and stenosis of right carotid artery; J96.11 Chronic respiratory failure with hypoxia; C92.01 Acute myeloblastic leukemia, in remission; I25.10 Atherosclerotic heart disease of native coronary artery without angina pectoris; I11.0 Hypertensive heart disease with heart failure; I50.22 Chronic systolic (congestive) heart failure; J43.9 Emphysema, unspecified; M85.80 Other specified disorders of bone density and structure, unspecified site; E78.5 Hyperlipidemia, unspecified; Z20.822 Contact with and (suspected) exposure to COVID-19; Z79.01 Long term (current) use of 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; Z79.51 Long term (current) use of inhaled steroids; Z79.899 Other long term (current) drug therapy; Z86.711 Personal history of pulmonary embolism; Z86.718 Personal history of other venous thrombosis and embolism; Z87.01 Personal history of pneumonia (recurrent); Z99.81 Dependence on supplemental oxygen
CPT/HCPCS: 43247; 43249; 36415; 70491; 71045; 71275; 80048; 80053; 82948; 83735; 85025; 85027; 87637; 93005; 94640; 96361; 96365; 96375; 99285; A9270; C1726; G0378; J1815; J2003; J2704; J2919; J3475; J7030; J7042; J7120; J7517; Q9967

== ENCOUNTER 2025-06-29 22:54 | Inpatient (IN) | payer MEDICARE, MEDICAID, SELFPAY ==
--- NOTE | ~2025-06-29 | XR_ITS ---
CHEST RADIOGRAPH CLINICAL HISTORY: ET TUBE PLACEMENT . COMPARISON: 06/20/2025 TECHNIQUE: Single portable view of the chest. FINDINGS Endotracheal tube is identified with its tip projecting approximately 3cm above the base of the harmony a. The remainder of the cardiomediastinal silhouette is otherwise unremarkable. Redemonstration of right apical scarring and volume loss within the right hemithorax. Right-sided pleural effusion. The remainder of the lungs are clear. IMPRESSION: Right apical scarring and volume loss within the right hemithorax with a right-sided effusion Endotracheal tube in good radiographic position Reviewed, dictated and finalized at location A. IMPRESSION: Right apical scarring and volume loss within the right hemithorax with a right- sided effusion Endotracheal tube in good radiographic position
--- NOTE | ~2025-06-29 | XR_ITS ---
XR chest 1V portable 06/30/2025 05:38 Indication: Mechanical ventilation. Respiratory distress. Procedure: AP portable chest Comparison: Comparison to multiple prior studies sequentially, with oldest reviewed study dated 02/08. Findings: Endotracheal tube tip approximately 3.6 cm above the katheryn. NG tube passes into the stomac h, tip not evaluated. Central line tip in the SVC. No pneumothorax. Stable chronic right apical pleur al thickening/scarring. Stable right pleural effusion. Focal scarring/pleural thickening right mid th orax unchanged. No acute focal pneumonia, edema or effusion. The lungs are hyperinflated which is con sistent with, but not diagnostic of chronic obstructive pulmonary disease. Impression: 1: No significant interval change. Reviewed, dictated and finalized at location A. Impression: 1: No significant interval change.
--- NOTE | ~2025-06-29 | CT_ITS ---
EXAMINATION: CTA chest PE abdomen pel DATE: 06/30/2025 09:01 INDICATION: Respiratory failure. Elevated lipase. TECHNIQUE: Computed tomography (CT) pulmonary angiogram of the chest was performed with 100 mL Omnipa que-350 intravenous contrast. Additional 3D reconstructions utilizing coronal maximum intensity proje ction (MIP) were performed. CT of the abdomen and pelvis was performed with intravenous contrast util izing the same contrast bolus following a short delay. Iterative reconstruction technique was employe d. The dose-length product was 397.98 mGy-cm. COMPARISON: Multiple chest CT studies dated between 04/20/2025 and 05/28/[address] abdomen and pelvis dated 12/15/2024, 01/16/2024 and 11/23/2017. FINDINGS: Chest: Endotracheal tube tip 2.4 cm above the katheryn. There is some bubbly mucus in the distal trachea and r ight mainstem bronchus. Nasogastric tube with distal tip in proximal side port in the body the stomac h. Left subclavian central venous catheter with distal tip at the cephalad superior vena cava. No pulmonary embolism. Enlargement of the central pulmonary arteries consistent with pulmonary arteri al hypertension. Severe emphysema. Small dependently layering right pleural effusion with mild depend ent compressive atelectasis in the right lower lobe. Contrast-enhanced vessels extending through a ne w wedge-shaped region of consolidation in the dependent right lower lobe which could represent pneumo tanya or additional atelectasis. Bronchiectasis and thick-walled cavitary lung disease in the apical ri ght upper lobe which is unchanged since the most recent study, decreased in the degree of wall thicke ceasar consolidation compared with study dated 07/21/2024 consistent with sequela of chronic pneumonia. S imilar there is been no recent change and slight improvement since 08/07/2024 in a second small region of focal bronchiectasis and thick-walled cavitary lung disease at the posterior left upper lobe. No significant change in multiple small centrilobular nodules scattered primarily peripherally in the bi lateral lower lungs, the largest at the left lung base measuring 1.5 x 0.9 cm which is decreased in s ize compared with study dated 10/23/2024 also sequela chronic pneumonia. Heart size is normal. No chris cardial effusion. Thoracic aorta is normal in caliber with no dissection. No pathologically enlarged thoracic lymphadenopathy. Mild bilateral gynecomastia. Mild upper thoracic levoscoliosis with mild sp ondylosis. Abdomen/pelvis: Status post cholecystectomy. Unchanged focal hepatic steatosis along the ligamentum teres. Spleen is chronically small. No significant interval change since 01/16/2024 in a chronic hypodense lesion along the tail of the pancreas currently measuring 2.5 x 1.3 cm. Also unchanged is a 1.6 x 1.1 cm lesion w ith peripheral curvilinear calcifications along the anterior margin of the head of the pancreas. Mild chronic haziness to the fat at the root of the mesentery. No new peripancreatic stranding to suggest acute pancreatitis. Bilateral adrenal glands are normal. Small regions of mild cortical scarring at both kidneys likely sequela prior infection or infarction. There are few scattered clonic diverticula without adjacent from trace stranding to suggest diverticulitis. Small bowel and appendix are normal . Small focus of gas and a Llamas catheter within the otherwise unremarkable bladder. Minimal ascites in the deep pelvis. No abscess or free intraperitoneal gas. No pathologically enlarged abdominal or p elvic lymphadenopathy. Moderate lumbosacral and mild lumbar spondylosis. IMPRESSION: 1. No pulmonary embolism. 2. Severe emphysema with new small right pleural effusion and posterior wedge-shaped region of consol idation in the right lower lobe which could represent pneumonia or atelectasis. 3. Stable appearance of additional chronic bilateral lung disease including thick-walled cavitary anne g disease with bronchiectasis in the bilateral upper lungs which likely sequela of chronic pneumonia. 4. No interval change in hypodense lesion at the tail the pancreas and rim calcified lesion along the anterior margin of the head of the pancreas which have both been present since 2018. Likely sequela of chronic pancreatitis. 5. Minimal ascites in the deep pelvis. No other acute intra-abdominal/pelvic process. Reviewed, dictated and finalized at location A. IMPRESSION: 1. No pulmonary embolism. 2. Severe emphysema with new small right pleural effusion and posterior wedge-s haped region of consolidation in the right lower lobe which could represent pne umonia or atelectasis. 3. Stable appearance of additional chronic bilateral lung disease including thi ck-walled cavitary lung disease with bronchiectasis in the bilateral upper lung s which likely sequela of chronic pneumonia. 4. No interval change in hypodense lesion at the tail the pancreas and rim calc ified lesion along the anterior margin of the head of the pancreas which have b oth been present since 2018. Likely sequela of chronic pancreatitis. 5. Minimal ascites in the deep pelvis. No other acute intra-abdominal/pelvic pr ocess.
--- NOTE | ~2025-06-29 | XR_ITS ---
Exam: Abdomen 1V HISTORY: OG TUBE PLACEMENT COMPARISON: None. TECHNIQUE: Supine images of the lower chest and upper abdomen FINDINGS: Nasogastric tube extends into the left upper quadrant, presumably within the stomach. IMPRESSION: Nasogastric tube in good position and ready for immediate use. Reviewed, dictated and finalized at location A.
--- NOTE | ~2025-06-29 | XR_ITS ---
CHEST RADIOGRAPH CLINICAL HISTORY: CENTRAL LINE PLACEMENT . COMPARISON: Previous examination performed 15 minutes earlier TECHNIQUE: Single portable view of the chest. FINDINGS Left subclavian central venous catheter with its tip projecting over the left brachiocephalic vein/SV C confluence. Endotracheal tube is identified with its tip projecting approximately 3cm above the base of the harmony a. Orogastric tube identified with its tip extending below the left hemidiaphragm, presumably within the stomach. The remainder of the cardiomediastinal silhouette is otherwise unremarkable. Right-sided pleural effusion. Right apical scarring with volume loss in the right hemithorax. IMPRESSION: Right-sided pleural effusion with right apical scarring and volume loss. The left hemithorax is clear. The visualized portion of the left lung is inflated. Supportive lines and tubes in good position. Reviewed, dictated and finalized at location A.
[2025-06-29 22:53] VITALS: O2SAT 76
--- NOTE | 2025-06-29 22:58 | ECG_ITS ---
Test Date: 2025-06-29 23:52:19 Measurements Intervals [place] Rate: 106 P: 87 SC: 141 QRS: 103 QRSD: 97 T: 60 QT: 351 QTc: 468 Interpretive Statements SINUS TACHYCARDIA WITH OCCASIONAL VENTRICULAR PREMATURE COMPLEXES RIGHT AXIS DEVIATION POSSIBLE LEFT ATRIAL ENLARGEMENT LOW QRS VOLTAGE IN LIMB LEADS POSSIBLE ANTERIOR MYOCARDIAL INFARCTION , OF INDETERMINATE AGE BORDERLINE T WAVE ABNORMALITY- HIGH LATERAL LEADS ABNORMAL ECG Compared to ECG 04/20/2025 21:08:37 NO SIGNIFICANT CHANGE Electronically Signed On 06-30-2025 06:16:51 CDT by Cal Carranza D.O.
[2025-06-29] MEDS: LACTATED RINGERS 1,000 ML 999 ML IV CONT (23:02)
[2025-06-29] MEDS: TERBUTALINE SULFATE 1 MG/ML VIAL 0.25 MG SUB-Q (23:05)
[2025-06-29] MEDS: KETAMINE HCL (*CRX) 500 MG/10 ML VIAL 200 MG IV PUSH (23:08)
[2025-06-29] MEDS: ROCURONIUM BROMIDE 50 MG/5 ML VIAL 70 MG IV PUSH (23:09)
[2025-06-29 23:11] VITALS: PULSE 114; O2SAT 100
[2025-06-29 23:15] VITALS: PULSE 118; RESP 38
[2025-06-29] MEDS: MIDAZOLAM 100MG/NS 100ML(*CRX) 100 MG/100 ML BAG IV CONT (23:15)
[2025-06-29] MEDS: SODIUM CHLORIDE 0.9% IV 1,000 ML 999 ML IV CONT (23:19)
--- NOTE | 2025-06-29 23:39 | PCRCNOTE ---
Delay on obtaining abg due to Dr. Olmos inserting a central line.
[2025-06-29 23:56] LABS: Alveolar/Arterial O2 Gradient 205.7 mmHg; Fractional Inspired Oxygen 100 %; HCO3 ABG 27.1 mEq/l (22.0-26.0); Oxygen Content ABG 14.7 %vol (16.0-22.0); Oxygen Saturation ABG 99.9 % (95.0-100.0); PCO2 ABG 42.3 mmHg (35.0-45.0); PO2 ABG 465.0 mmHg (80.0-100.0); PO2 FiO2 Ratio Arterial Blood 4.65 %
[2025-06-29 23:57] LABS: Arterial Blood Gas Tidal Volume 400 ml; Arterial Blood Gas Ventilator rate 16 /MIN; Site Drawn RIGHT BRACHIAL
[2025-06-30] VITALS (89 sets, daily range): BP systolic 68–150; BP diastolic 49–97; PULSE 74–112; RESP 12–26; TEMP 35.3–37.1; O2SAT 83–99; BMI 16.5
--- NOTE | 2025-06-30 | ECHO_ITS ---
Patient Info Name: Brady Jones Age: 59 years : 1965 Gender: Male Ht: 68 in Wt: 108 lbs BSA: 1.52 m2 HR: 81 bpm BP: 116 / 75 mmHg Heart Rhythm: Sinus Rhythm Technical Quality: Fair Exam Date: 06/30/2025 1:31 PM Patient Status: I Admit Date: 06/30/2025 Exam Type: CA echo doppler color flow Complete two-dimensional, color flow and Doppler transthoracic echocardiogram is performed. Staff Referring Physician: Ivelisse Webber MD Dress Cutter: Taina Jefferson Attending Provider: Camilo Friedman Summary 1. Complete two-dimensional, color flow and Doppler transthoracic echocardiogram is performed. 2. Left ventricular chamber dimension is normal. 3. Left ventricular systolic function is normal, estimated at 55-60. 4. The left ventricular diastolic function is abnormal. 5. E/e' 13 is mildly elevated. 6. Right atrial chamber dimension is mildly enlarged. 7. There is trace tricuspid valve regurgitation. 8. Mild pulmonary hypertension, estimated pulmonary arterial systolic pressure is 40 mmHg. 9. Dilated inferior vena cava with >50% collapse upon inspiration consistent with elevated right atrial pressure, 10 mmHg. 10. There is trivial pericardial effusion. Left Ventricle E/e' 13 is mildly elevated. Left ventricular chamber dimension is normal. Left ventricular systolic function is normal, estimated at 55-60. The left ventricular diastolic function is abnormal. Right Ventricle Right ventricular chamber dimension is normal. Right ventricular systolic function is normal and with normal TAPSE 1.8 cm. Left Atria Left atrial chamber dimension is normal. Right Atria Right atrial chamber dimension is mildly enlarged. Aortic Valve The aortic valve is trileaflet. There is no aortic valve stenosis. There is no aortic valve regurgitation. Pulmonic Valve There is no pulmonic regurgitation. Mitral Valve There is no mitral valve stenosis. There is no mitral valve regurgitation. Tricuspid Valve There is trace tricuspid valve regurgitation. Mild pulmonary hypertension, estimated pulmonary arterial systolic pressure is 40 mmHg. Pericardium/Pleural There is trivial pericardial effusion. Inferior Vena Cava Dilated inferior vena cava with >50% collapse upon inspiration consistent with elevated right atrial pressure, 10 mmHg. Aorta The aortic root size at the sinus of Valsalva is not well visualized. Left Ventricular Outflow Tract Name Value Normal LVOT 2D LVOT Diameter 1.9 cm LVOT Doppler LVOT Peak Velocity 67 cm/s LVOT Peak Gradient 2 mmHg LVOT Mean Gradient 1 mmHg LVOT VTI 15 cm LVOT VTI/AV VTI Ratio 0.8 LVOT Stroke Volume 43 ml LVOT CO 3.5 l/min LVOT CI 2.3 l/min/m2 Pulmonic Valve Name Value Normal RVOT Doppler RVOT Peak Velocity 62 cm/s RVOT Peak Gradient 2 mmHg PV Doppler PV Peak Velocity 95 cm/s PV Peak Gradient 4 mmHg Mitral Valve Name Value Normal MV Diastolic Function MV E Peak Velocity 102 cm/s MV A Peak Velocity 97 cm/s MV E/A 1.0 MV Decel Time (PW) 181 ms MV Annular TDI MV E/e' (Septal) 12.1 MV E/e' (Lateral) 15.6 MV E/e' (Average) 13.8 Tricuspid Valve Name Value Normal TV Regurgitation Doppler TR Peak Velocity 274 cm/s TR Peak Gradient 18 mmHg Estimated PAP/RSVP RA Pressure 10 mmHg <=5 PA Systolic Pressure 40 mmHg <36 RV Systolic Pressure 40 mmHg <36 TV Annular TDI TV Lateral Jami s' Velocity 14.2 cm/s >=9.5 Aortic Valve Name Value Normal AV Doppler AV Peak Velocity 109 cm/s AV Peak Gradient 5 mmHg AV Mean Gradient 2 mmHg AV VTI 20 cm AV Area (Cont Eq VTI) 2.2 cm2 >=3.0 AV Area (Cont Eq Ede) 1.8 cm2 AV DI (Ede) 0.62 AV Regurgitation 2D LVOT Area 2.9 cm2 Ventricles Name Value Normal LV Dimensions 2D/MM IVS Diastolic Thickness (2D) 1.0 cm 0.6-1.0 LVID Diastole (2D) 3.8 cm 4.2-5.8 LVIW Diastolic Thickness (2D) 1.0 cm 0.6-1.0 LVID Systole (2D) 3.2 cm 2.5-4.0 LVOT Diameter 1.9 cm LV Mass (2D Cubed) 113.23 g 88.00-224.00 LV Mass Index (2D Cubed) 75 g/m2 49-115 Relative Wall Thickness (2D) 0.52 <=0.42 LV Fractional Shortening/Ejection Fraction 2D/MM LV Fractional Shortening (2D) 16 % 25-43 LV EF (2D Teichholz) 34 % LV Diastolic Volume (4C MOD) 64 ml LV EF (4C MOD) 45 % LV Diastolic Volume (2C MOD) 63 ml LV EF (2C MOD) 45 % LV Diastolic Volume (BP MOD) 64 ml 62-150 LV Diastolic Volume Index (BP MOD) 42 ml/m2 34-74 LV Systolic Volume (BP MOD) 35 ml 21-61 LV Systolic Volume Index (BP MOD) 23 ml/m2 11-31 LV EF (BP MOD) 45 % 52-72 LV Diastolic Length (4C) 7.5 cm LV Systolic Length (4C) 6.2 cm LV Stroke Volume (4C MOD) 28 ml Atria Name Value Normal LA Dimensions LA Volume (4C A-L) 32 ml LA Volume (BP A-L) 27 ml RA Dimensions RA Area (4C) 21.4 cm2 <=18.0 Report Signatures
[2025-06-30 00:26] LABS: Hematocrit 26.4 % (42.0-52.0); Hemoglobin 8.6 g/dL (14.0-18.0); Immature Granulocyte Percent A 1.1 % (0-0.5); Lymphocytes Absolute Auto 1.46 K/mm3 (0.9-3.2); Mean Corpuscular HGB Conc 32.6 g/dl (32-36); Mean Corpuscular Hemoglobin 32.8 pg (26-34); Mean Corpuscular Volume 100.8 fl (80-100); Nucleated Red Blood Cells Absolute Auto 0.000 K/mm3 (0.0-0.012); Nucleated Red Blood Cells Perc 0.0 % (0.0-0.2); Platelet Count Result 298 k/mm3 (150-375); Red Blood Count 2.62 M/mm3 (4.6-6.20); White Blood Count 11.8 K/mm3 (4.5-10.0)
[2025-06-30 00:29] LABS: Alanine Aminotransferase 19 U/L (6-50); Albumin Level 2.4 g/dL (3.5-5.1); Alkaline Phosphatase 162 U/L (38-126); Anion Gap 8 mmol/L (4-12); Aspartate Amino Transferase 35 U/L (17-59); Bilirubin,Total 0.4 mg/dL (0.2-1.3); Blood Urea Nitrogen 13 mg/dL (9-20); Calcium 8.1 mg/dL (8.4-10.2); Carbon Dioxide 30 mmol/L (22-30); Chloride 99 mmol/L (98-107); Estimated Glomerular Filt Rate > 60; Glucose 138 mg/dL (65-110); Potassium 3.2 mmol/L (3.4-5.0); Sodium 137 mmol/L (137-145); Total Protein 6.7 g/dL (6.3-8.2)
--- NOTE | 2025-06-30 00:29 | ED_ITS ---
HPI - SOB/Dyspnea General Chief Complaint: Shortness of Breath/Dyspnea Stated Complaint: RESPIRATORY DISTRESS History of Present Illness HPI Narrative: 59-year-old male with a history of significant COPD on home oxygen, leukemia, chronic oxygen dependence with 5 L per minute nasal cannula at home. Patient presents to the emergency department in respiratory extremis requiring emergent interventions and intubation. Patient states that this evening he was having progressively worse shortness of breath despite using his inhalers and nasal cannula with condenser at home. Patient called EMS and found him in respiratory extremis and placed him on CPAP therapy with maximal medical interventions including intravenous Decadron 10 mg, nebulization treatments, bolus of 2 g magnesium sulfate IV and fluids. Patient presents and placed into room 10 for resuscitation. Respiratory therapy called to bedside for emergent respiratory management with intubation impending. Patient is awake, very conversationally dyspneic, moving no air on auscultation scattered wheezing, he is able to verbalize chest discomfort as well as shortness of breath and wishes to be intubated as he has a history of intubations. Related Data Home Medications ?Medication ?Instructions ?Recorded ?Confirmed ?Last Taken ?Type rivaroxaban 20 mg tablet (Xarelto) 20 mg PO QAM 02/06/23 06/30/25 11/20/24 17:03 History 20 mg albuterol sulfate 90 mcg/actuation 1 puff inhalation Q4-6H PRN 10/23/24 04/21/25 11/19/24 16:00 History aerosol inhaler Shortness Of Breath Or Wheezing 1 puff ondansetron 4 mg disintegrating 4 mg PO Q8H PRN Nausea And Vomiting 10/23/24 04/21/25 11/20/24 17:04 History tablet 4 mg pantoprazole 40 mg tablet,delayed 40 mg PO Q12H 10/23/24 04/21/25 11/20/24 17:00 History release 40 mg isavuconazonium sulfate 186 mg 372 mg PO DAILY 11/25/24 04/21/25 Unknown History capsule (Cresemba) fluticasone fur. 200 mcg-umeclid 1 inh inhalation DAILY 02/04/25 06/30/25 Unknown History 62.5 mcg-vilant 25 mcg inhalat.powder (Trelegy Ellipta) gabapentin 300 mg capsule 300 mg PO QID 02/04/25 06/30/25 Unknown History atorvastatin 40 mg tablet 40 mg PO QPM 04/21/25 06/30/25 04/20/25 History Allergies Allergy/AdvReac Type Severity Reaction Status Date / Time adhesive tape AdvReac Unknown PAPER Verified 04/21/25 11:35 TAPE,REDNESS AND IRRITATION Review of Systems 2 Review of Systems: As reviewed above in HPI [facility] Past Medical History Medical History Stenosis of right carotid artery 75 to 90% Type 2 diabetes mellitus Chronic obstructive pulmonary disease Systolic congestive heart failure Pancreatitis Non-tuberculous mycobacterial pneumonia MSSA bacteremia Osteopenia Pseudomonas pneumonia Mycobacterium avium complex Chronic bswxu-iiuvoo-bxtl disease Chronic respiratory failure with hypoxia, on home oxygen therapy Coronary artery disease Pill esophagitis ST elevation (STEMI) myocardial infarction (12/30/22) Chronic anticoagulation Immunocompromised patient patient on anti rejection medications Positive nasal culture for methicillin resistant Staphylococcus aureus Deep venous thrombosis Chronic obstructive pulmonary disease Sciatica Eczema Anxiety Depression Peyronie's disease Emphysema/COPD 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 Code status: Full code. Smoking packs per day: 0.25 Smoking cigarettes per day: 5.0 Years smoked: 44 Smoking pack-years: 11.00 Smoking status: Current some day smoker Alcohol intake: unknown Substance use: unknown Do You Feel Safe in your Home?: Yes Lack of Transportation: No Lack of Food: Never True Current Housing: I Have Housing Concerned About Future Housing: No Difficulty Paying Gas/Electric Bills: No Difficulty Paying for Meds: No Currently Unemployed: No Education: High School Diploma/GED Difficulty w/ Childcare or Family Care: No Living arrangements: with family Additional living arrangements comments: He lives with his roommate in [place]. Occupation/Education: unemployed Spiritual care concerns: No (sedated) Agree to blood products: Yes Exam 2 Narrative: GENERAL: Critical appearing, cachectic appearing, respiratory distress, awake and able to verbalize although very dyspneic HEAD: Atraumatic head neck EYES: And sunken and eyes pupils are equal reactive ENT: Nares clear, no rhinorrhea or epistaxis. Mucous membranes dry, missing dentition. NECK: Supple. CHEST: Silent chest, restricted chest rise with CPAP, scattered wheezing, severe respiratory distress HEART: Tachycardic rate, regular rhythm with minimal ectopy. No murmur heard. Normal pulses ABDOMEN: [Soft, nondistended], [nontender], [No rigidity or guarding] EXTREMITIES: Normal range of motion. [No edema.] SKIN: Warm, dry, no rash. NEURO: [No focal deficits]. Alert and oriented [x3.] PSYCH: [Normal mood and affect.] Course Vital Signs Vital signs: Vital Signs Pulse Oximetry 76 L 06/29/25 22:53 Oxygen Delivery EMS-CPAP 06/29/25 22:53 Oxygen Flow Rate 15 06/29/25 22:53 Temperature 36.3 C L 06/30/25 04:36 Pulse Rate 94 06/30/25 04:54 Respiratory Rate 18 06/30/25 04:36 Blood Pressure 116/75 06/30/25 04:36 Pulse Oximetry 96 06/30/25 04:54 Oxygen Delivery Mechanical Ventilation 06/30/25 04:54 Oxygen Flow Rate 15 06/29/25 22:53 Fraction of Inspired Oxygen 30 06/30/25 04:54 Procedures Central Line Placement Left SC: Central Line Date: 06/30/25 Central Line Time: 23:05 Performed Emergently - Given emergent patient condition, temporal constraints may have precluded informed consent.: Yes Time Out Performed: Yes Patient Placed on Monitor/Pulse Ox: Yes Max. Sterile Barrier Technique: Caps, large sterile sheet and hand hygiene Central Line Prep: 2% chlorhexidine scrub and sterile drapes applied Technique: seldinger Local Anesthetic: none Ultrasound Used for Placement: No Central Line Lumen Inserted: triple Post Procedure: sutured in place, good blood return, all ports aspirated, flushed, capped and sterile dressing applied Post Procedure X-Ray: tip of catheter in good position and no pneumothorax seen Patient Tolerated Procedure: well and no complications Complications: none Intubation Intubation #1: Intubation Date: 06/29/25 Intubation Time: 22:58 Time out performed: Yes sedative: Ketamine Mg Given: 100 paralytic: Rocuronium Mg Given: 70 Laryngoscope: fiber optic video scope Tube Size (cm): 8.0 Method of Intubation: orotracheal Number of Attempts: 1 Tube Secured Depth (cm): 24 Tube Secured Location: teeth Tube Placement Confirmation: visualized tube passing through cords, equal breath sounds bilaterally, no breath sounds over epigastrium and confirmation by capnometry Patient Tolerated Procedure: well and no complications Intubation Complications: none MDM - SOB/Dyspnea MDM Narrative Medical decision making narrative: 59-year-old male with a history of significant COPD on home oxygen, leukemia, chronic oxygen dependence with 5 L per minute nasal cannula at home. Patient presents to the emergency department in respiratory extremis requiring emergent interventions and intubation. Patient states that this evening he was having progressively worse shortness of breath despite using his inhalers and nasal cannula with condenser at home. Patient called EMS and found him in respiratory extremis and placed him on CPAP therapy with maximal medical interventions including intravenous Decadron 10 mg, nebulization treatments, bolus of 2 g magnesium sulfate IV and fluids. Patient presents and placed into room 10 for resuscitation. Respiratory therapy called to bedside for emergent respiratory management with intubation impending. Patient is awake, very conversationally dyspneic, moving no air on auscultation scattered wheezing, he is able to verbalize chest discomfort as well as shortness of breath and wishes to be intubated as he has a history of intubations. Patient presents in respiratory extremis, respiratory therapy called to bedside, patient administered 0.25 mg subcutaneous terbutaline for bronchodilation. Vital signs show systolics of 70/40, tachycardia in the 120s, tachypnea in the 40s, pulse ox in the 70s despite CPAP with PEEP of 10. Patient is already see maximal medical therapy at this time, terbutaline did help with some volume expansion with better tidal volumes with patient is chris arrest at this time with hypotension requiring peripheral administration of push dose epinephrine. Patient was administered a total of 60 mcg of push dose epinephrine with improvement in systolic blood pressures enough to temporize him for endotracheal intubation. Induced with ketamine with good effect with both hemodynamic stability and lack of any respiratory compromise further. Intubated 1st pass success and orogastric tube inserted shortly thereafter. Confirmed on chest x- ray with retraction 3 cm to appropriate positioning. Patient's pressures responded well to current treatment regimen he has received 2 L of fluid bolused. Left subclavian central venous catheter was placed without difficulty. Post chest x-ray confirms appropriate position without any pneumothorax or complication. Patient started on continuous nebulization with albuterol and Atrovent, ABG obtained, already received steroids in route by EMS, scheduled steroids will be given q.6. Vent settings ordered including tidal volumes of 400, rate of 16, peep of 5, 100% FiO2. Chest x-ray ordered, laboratory studies troponin EKG obtained. Spoke to the ICU physician Dr. Webber who accepted the patient to the ICU upon completion of workup. Patient started on Rocephin and azithromycin for COPD exacerbation and potential pneumonia based on chest x-ray findings. ABG interpreted with normal pH, hyper oxygenating now with decrease in his vent settings to 50% FiO2. Slightly elevated bicarb chronically. Electrolytes show some mild hypokalemia 3.2, normal creatinine, unremarkable glucose. Negative troponin. LFTs without any significant elevation. Low albumin 2.4 likely malnourished but given his cachectic appearance. Patient given albumin bolus for better blood pressure control in addition to volume resuscitation. EKG shows sinus tachycardia, occasional PVC but otherwise no ST segment elevations or depressions. Patient remains currently sedated on a Versed infusion after paralytic and ketamine has worn off. Patient's blood pressures have been persistently soft and decreasing after treatment regimen. He was given appropriate fluid resuscitation and maintenance fluids started. Norepinephrine infusing through his left-sided subclavian catheter. No signs of pneumonia. His antibiotics infusing at this time, blood cultures lactic acid ordered. Urinalysis ordered. Patient re-evaluated several times after initiation of norepinephrine and blood pressures have been holding in the 110s to 120s range. Mechanically improved and doing well with the ventilator. Discussed with the hospitalist who accepted the patient to the ICU at this time. Patient transport upstairs without any further incident. Lab Data 06/30/25 00:06 06/30/25 00:06 Labs: Lab Results 06/29/25 06/30/25 06/30/25 Range/Units 23:36 00:06 01:59 WBC 11.8 H (4.5-10.0) K/mm3 RBC 2.62 L (4.6-6.20) M/mm3 Hgb 8.6 L (14.0-18.0) g/dL Hct 26.4 L (42.0-52.0) % MCV 100.8 H (80-100) fl MCH 32.8 (26-34) pg MCHC 32.6 (32-36) g/dl RDW 20.7 H (11.5-14.5) % Plt Count 298 (150-375) k/mm3 MPV 11.0 H (7.4-10.4) fl Immature Gran % (Auto) 1.1 H (0-0.5) % Neut % (Auto) 78.9 H (45.5-73.1) % Lymph % (Auto) 12.4 L (18.3-44.2) % [place] % (Auto) 3.9 (2.6-8.5) % Eos % (Auto) 2.8 (0-4.4) % Baso % (Auto) 0.9 (0.2-1.2) % Lymph # (Auto) 1.46 (0.9-3.2) K/mm3 [place] # (Auto) 0.5 (0.1-0.6) K/mm3 Eos # (Auto) 0.3 (0-0.3) K/mm3 Baso # (Auto) 0.1 (0.0-0.1) K/mm3 Abs Immat Gran (auto) 0.13 H (0.00-0.031) K/mm3 Absolute Neuts (auto) 9.3 H (1.3-6.7) K/mm3 Absolute Nucleated RBC 0.000 (0.0-0.012) K/mm3 Nucleated RBC % 0.0 (0.0-0.2) % PT 15.0 H (11.1-14.7) Seconds INR 1.2 APTT 37.4 H (22.3-36.8) Seconds Minute Volume Not Reportable Vent Mode Cmv Tidal Volume 400 ml PEEP 5 cmH2O Peak Inspir Pressure Not Reportable Pressure Support Not Reportable Sodium 137 (137-145) mmol/L Potassium 3.2 L (3.4-5.0) mmol/L Chloride 99 (98-107) mmol/L Carbon Dioxide 30 (22-30) mmol/L Anion Gap 8 (4-12) mmol/L BUN 13 (9-20) mg/dL Creatinine 0.57 L (0.7-1.3) mg/dL Estim Creat Clear Calc Not Reportable Estimated GFR > 60 (59 - ) Glucose 138 H (65-110) mg/dL Lactic Acid 3.6 H (0.7-2.0) mmol/L Calcium 8.1 L (8.4-10.2) mg/dL Total Bilirubin 0.4 (0.2-1.3) mg/dL AST 35 (17-59) U/L ALT 19 (6-50) U/L Alkaline Phosphatase 162 H (38-126) U/L Troponin I < 0.012 (0.000-0.034) ng/mL Total Protein 6.7 (6.3-8.2) g/dL Albumin 2.4 L (3.5-5.1) g/dL Urine Color (Yellow) Urine Appearance (Clear) Urine pH (5.0-9.0) Ur Specific [place] (1.001-1.035) Urine Protein (Negative) mg/dL Urine Glucose (UA) (Negative) mg/dL Urine Ketones (Negative) mg/dL Ur Blood (Man) (Negative) Urine Nitrate (Negative) Urine Bilirubin (Negative) Urine Urobilinogen (<2.0) mg/dL Add Ur Microanalysis Leukocyte Esterase Rfl (Negative) CHRISTOPHER/UL Urine RBC (0-2) /hpf Urine WBC (0-3) /hpf Ur Squamous Epith Cells (Few) /hpf Urine Bacteria /hpf Urine Casts Hyaline Casts (None) /lpf 06/30/25 Range/Units 02:00 WBC (4.5-10.0) K/mm3 RBC (4.6-6.20) M/mm3 Hgb (14.0-18.0) g/dL Hct (42.0-52.0) % MCV (80-100) fl MCH (26-34) pg MCHC (32-36) g/dl RDW (11.5-14.5) % Plt Count (150-375) k/mm3 MPV (7.4-10.4) fl Immature Gran % (Auto) (0-0.5) % Neut % (Auto) (45.5-73.1) % Lymph % (Auto) (18.3-44.2) % [place] % (Auto) (2.6-8.5) % Eos % (Auto) (0-4.4) % Baso % (Auto) (0.2-1.2) % Lymph # (Auto) (0.9-3.2) K/mm3 [place] # (Auto) (0.1-0.6) K/mm3 Eos # (Auto) (0-0.3) K/mm3 Baso # (Auto) (0.0-0.1) K/mm3 Abs Immat Gran (auto) (0.00-0.031) K/mm3 Absolute Neuts (auto) (1.3-6.7) K/mm3 Absolute Nucleated RBC (0.0-0.012) K/mm3 Nucleated RBC % (0.0-0.2) % PT (11.1-14.7) Seconds INR APTT (22.3-36.8) Seconds Minute Volume Vent Mode Tidal Volume ml PEEP cmH2O Peak Inspir Pressure Pressure Support Sodium (137-145) mmol/L Potassium (3.4-5.0) mmol/L Chloride (98-107) mmol/L Carbon Dioxide (22-30) mmol/L Anion Gap (4-12) mmol/L BUN (9-20) mg/dL Creatinine (0.7-1.3) mg/dL Estim Creat Clear Calc Estimated GFR (59 - ) Glucose (65-110) mg/dL Lactic Acid (0.7-2.0) mmol/L Calcium (8.4-10.2) mg/dL Total Bilirubin (0.2-1.3) mg/dL AST (17-59) U/L ALT (6-50) U/L Alkaline Phosphatase (38-126) U/L Troponin I (0.000-0.034) ng/mL Total Protein (6.3-8.2) g/dL Albumin (3.5-5.1) g/dL Urine Color Yellow (Yellow) Urine Appearance Clear (Clear) Urine pH 7.0 (5.0-9.0) Ur Specific [place] 1.010 (1.001-1.035) Urine Protein Trace (Negative) mg/dL Urine Glucose (UA) Negative (Negative) mg/dL Urine Ketones Negative (Negative) mg/dL Ur Blood (Man) Negative (Negative) Urine Nitrate Negative (Negative) Urine Bilirubin Negative (Negative) Urine Urobilinogen 0.2 (<2.0) mg/dL Add Ur Microanalysis Reviewed Leukocyte Esterase Rfl Negative (Negative) CHRISTOPHER/UL Urine RBC 0-2 (0-2) /hpf Urine WBC 0-5 (0-3) /hpf Ur Squamous Epith Cells None seen (Few) /hpf Urine Bacteria None seen /hpf Urine Casts 6-10 Hyaline Casts Present (None) /lpf ABG Data ABG results: 06/29/25 23:36 Puncture Site Right brachial ABG pH 7.424 ABG pCO2 42.3 ABG pO2 465.0 H ABG PO2/FiO2 Ratio 4.65 ABG HCO3 27.1 H ABG O2 Saturation 99.9 ABG O2 Content 14.7 L ABG Base Excess 2.4 A-a Gradient 205.7 Oxyhemoglobin 99.4 Total Hemoglobin 9.6 L O2 Delivery Device Ventilator O2 Liters/Min Not Reportable Vent Rate 16 FiO2 100 Critical Care Time Critical Care Time Critical Care Time: Yes Total Critical Care Time: 105 (Critical care time is exclusive of the separately billable procedures above.) Discharge Plan Discharge Clinical Impression: Respiratory failure requiring intubation, Acute exacerbation of chronic obstructive pulmonary disease, Chronic respiratory failure with hypoxia, on home oxygen therapy Patient Disposition: Still a Patient Condition: Critical Time of Disposition: 02:27
[2025-06-30 00:37] LABS: Troponin I < 0.012 ng/mL (0.000-0.034)
[2025-06-30 00:43] LABS: INR 1.2; Prothrombin Time 15.0 Seconds (11.1-14.7)
[2025-06-30 00:44] LABS: Partial Thromboplastin Time 37.4 Seconds (22.3-36.8)
[2025-06-30] MEDS: cefTRIAXone 1 GM in SODIUM CHLORIDE 0.9% IV 50 ML 100 ML IVPB (00:49)
[2025-06-30] MEDS: AZITHROMYCIN IV 500 MG in SODIUM CHLORIDE 0.9% IV 250 ML IVPB (00:50)
[2025-06-30] MEDS: NOREPINEPHRINE 8 MG/D5W 250 ML 8 MG/250 ML BAG 9.38 MG IV CONT (01:11)
[2025-06-30] MEDS: LACTATED RINGERS 1,000 ML 100 ML IV CONT ×2 (01:15→11:24)
[2025-06-30] MEDS: Please enter patient height and weight for medication dosing 1 EACH XX (01:17)
[2025-06-30] MEDS: ALBUMIN HUMAN 25% 25 GM/100 ML 100 ML IVPB ×3 (01:30→11:25)
[2025-06-30 02:20] LABS: Add Urine Microscopic? YES; Appearance Urine Clear (Clear); Glucose Urine UA Negative (Negative); Leukocyte Esterase Ur Negative LEU/UL (Negative); Need Manual Microscopic Reviewed; Nitrate Urine Negative (Negative); Specific Grav Ur 1.010 (1.001-1.035)
[2025-06-30] MEDS: ALBUTEROL SULFATE NEB 2.5 MG/3 ML INH INHALATION ×3 (02:37→14:33)
[2025-06-30] MEDS: IPRATROPIUM BR 0.02% INH SOLN 0.5 MG/2.5 ML VIAL INHALATION ×3 (02:37→14:33)
--- NOTE | 2025-06-30 03:05 | PC.NURSE ---
0302 report received from BECKI Harris.
[2025-06-30] MEDS: MIDAZOLAM HCL (*CRX) 2 MG/2 ML VIAL IV PUSH (03:15)
--- NOTE | 2025-06-30 03:51 | ADMGEN ---
This patient, Brady Jones, was admitted to Intensive Care Unit-1. Patient/family oriented to hospital policies and general routines including ID bracelet, bed and alarms, visiting hours, pain management, procedures, bathroom and other care routines, personal items, smoking policy, room service/diet, and visiting hours. Information on how to activate the Rapid Response Team has been discussed. Patient/Family are encouraged to report perceived risks to care and to ask questions if they do not understand what they are told or what they should do.
[2025-06-30 03:54] LABS: MRSA (PCR) NOT DETECTED (NOT DETECTE)
--- NOTE | 2025-06-30 04:11 | PM.IMHP ---
H&P: HPI History of Present Illness Date/Time: 06/30/25 04:11 Chief Complaint: Respiratory failure due to COPD exacerbation Narrative: This is a 59-year-old male patient with a past medical history that is very extensive including bone marrow transplant, COPD with chronic respiratory failure, MAC pneumonia, Pseudomonas pneumonia type 2 diabetes with recent admission for DKA, she CAD, anxiety and depression, AML, hyperlipidemia, pulmonary emboli and peripheral neuropathy who presented in respiratory distress to the emergency department. Severe COPD exacerbation with silent chest. Patient received terbutaline and ketamine then underwent RSI. Blood pressure noted to be hypotensive in the 60s requiring push dose epinephrine until stabilized then CVC inserted and norepinephrine drip started. Labs noted with white blood cell count of 11.8 chronic anemia with hemoglobin of 8.6 and hematocrit 26.4. Potassium decreased to 3.2 and lactic acid elevated at 3.6. Albumin also noted to be low at 2.4 and he receive some albumin in the emergency department to assist with blood pressure. Catheter placed and urinalysis does not appear to be infected. Nasal MRSA PCR was negative. Patient received Rocephin and azithromycin in the emergency department. ABG post intubation was balanced with significant hyperoxygenation so FiO2 was titrated down to 30% where repeat ABG now yields a slight metabolic alkalosis with normal PO2. PH 7.5 pCO2 36 PO2 97.2 HC03 27.4 On morning labs lactic acid had risen to 5.8. Ordered a liter of normal saline IV bolus. Albumin is still infusing and norepinephrine drip is at 5 mcg/min. Review of Systems Review of Systems: ROS unobtainable: Yes unobtainable due to endotracheal tube and unobtainable due to medical condition [facility] Past Medical History Medical History Stenosis of right carotid artery 75 to 90% Type 2 diabetes mellitus Chronic obstructive pulmonary disease Systolic congestive heart failure Pancreatitis Non-tuberculous mycobacterial pneumonia MSSA bacteremia Osteopenia Pseudomonas pneumonia Mycobacterium avium complex Chronic rusym-jawilt-xwwa disease Chronic respiratory failure with hypoxia, on home oxygen therapy Coronary artery disease Pill esophagitis ST elevation (STEMI) myocardial infarction (12/30/22) Chronic anticoagulation Immunocompromised patient patient on anti rejection medications Positive nasal culture for methicillin resistant Staphylococcus aureus Deep venous thrombosis Chronic obstructive pulmonary disease Sciatica Eczema Anxiety Depression Peyronie's disease Emphysema/COPD 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 Peripheral neuropathy Pulmonary emboli Hyperlipidemia Surgical History Surgical History History of allogeneic hematopoietic stem cell transplant History of bone marrow transplant (2008) History of cataract extraction with lens replacement History of heart artery stent (12/30/22) 100% occlusion mid RCA s/p drug-eluting stent, left coronary system with [id number] disease History of orthopedic surgery Left tibia liz placement Family History Family History Mother Acute myocardial infarction, Onset Age: 42 Father COPD (chronic obstructive pulmonary disease) Diabetes mellitus Alcohol abuse Social History Social History Social History: Surrogate medical decision maker: Lissy Kaiser, friend/roommate. Code status: Full code. Smoking packs per day: 0.25 Smoking cigarettes per day: 5.0 Years smoked: 44 Smoking pack-years: 11.00 Smoking status: Current some day smoker Alcohol intake: unknown Substance use: unknown Do You Feel Safe in your Home?: Yes Lack of Transportation: No Lack of Food: Never True Current Housing: I Have Housing Concerned About Future Housing: No Difficulty Paying Gas/Electric Bills: No Difficulty Paying for Meds: No Currently Unemployed: No Education: High School Diploma/GED Difficulty w/ Childcare or Family Care: No Living arrangements: with family Additional living arrangements comments: He lives with his roommate in [place]. Occupation/Education: unemployed Spiritual care concerns: No (sedated) Agree to blood products: Yes Meds Home Medications and Allergies Home Medications ?Medication ?Instructions ?Recorded ?Confirmed ?Type rivaroxaban 20 mg tablet (Xarelto) 20 mg PO QAM 02/06/23 06/30/25 History acyclovir 400 mg tablet 400 mg PO TID #90 tabs 01/28/24 04/21/25 Rx montelukast 10 mg tablet 10 mg PO HS #30 tabs 01/28/24 04/21/25 Rx (Singulair) mycophenolate mofetil 500 mg tablet 1,000 mg (2 x 500 mg) PO Q12H #10 01/28/24 06/30/25 Rx tabs tacrolimus 0.5 mg capsule, 0.5 mg PO EVERY OTHER DAY #30 caps 01/28/24 06/30/25 Rx immediate-release (Prograf) albuterol sulfate 90 mcg/actuation 1 puff inhalation Q4-6H PRN 10/23/24 04/21/25 History aerosol inhaler Shortness Of Breath Or Wheezing ondansetron 4 mg disintegrating 4 mg PO Q8H PRN Nausea And Vomiting 10/23/24 04/21/25 History tablet pantoprazole 40 mg tablet,delayed 40 mg PO Q12H 10/23/24 04/21/25 History release isavuconazonium sulfate 186 mg 372 mg PO DAILY 11/25/24 04/21/25 History capsule (Cresemba) fluticasone fur. 200 mcg-umeclid 1 inh inhalation DAILY 02/04/25 06/30/25 History 62.5 mcg-vilant 25 mcg inhalat.powder (Trelegy Ellipta) gabapentin 300 mg capsule 300 mg PO QID 02/04/25 06/30/25 History budesonide 2 mg/10 mL oral 10 ml PO QAM AND QPM 60 days 02/10/25 04/21/25 Rx suspension in packet (Eohilia) #1,200 mL ethambutol 400 mg tablet 800 mg (2 x 400 mg) PO DAILY 60 02/11/25 04/21/25 Rx days #120 tabs tamsulosin 0.4 mg capsule 0.4 mg PO QAM #30 caps 02/11/25 04/21/25 Rx atorvastatin 40 mg tablet 40 mg PO QPM 04/21/25 06/30/25 History albuterol sulfate 2.5 mg/3 mL See Rx Instructions .Route 05/24/25 06/30/25 Rx (0.083 %) solution for nebulization .COMPLEX #180 mL Allergies Allergy/AdvReac Type Severity Reaction Status Date / Time adhesive tape AdvReac Unknown PAPER Verified 04/21/25 11:35 TAPE,REDNESS AND IRRITATION Vital Signs Vital Signs - 24 hr 06/29/25 22:53 06/29/25 23:11 06/29/25 23:15 Temperature Pulse Rate 114 H 118 H Respiratory Rate 38 H Blood Pressure Pulse Oximetry 76 L 100 Oxygen Delivery EMS-CPAP Mechanical Ventilation Oxygen Flow Rate 15 Fraction of Inspired Oxygen 100 06/30/25 00:41 06/30/25 00:42 06/30/25 00:43 Temperature 36.5 C 36.5 C 36.5 C Pulse Rate 107 H 107 H 107 H Respiratory Rate 16 16 16 Blood Pressure 73/49 L 73/56 L Pulse Oximetry Oxygen Delivery Oxygen Flow Rate Fraction of Inspired Oxygen 06/30/25 00:45 06/30/25 00:46 06/30/25 00:47 Temperature 36.5 C 36.5 C 36.6 C Pulse Rate 106 H 107 H 112 H Respiratory Rate 16 16 12 Blood Pressure 73/52 L 91/76 L Pulse Oximetry Oxygen Delivery Oxygen Flow Rate Fraction of Inspired Oxygen 06/30/25 00:48 06/30/25 00:51 06/30/25 00:53 Temperature 36.6 C 36.6 C 36.6 C Pulse Rate 107 H 105 H 110 H Respiratory Rate 16 16 16 Blood Pressure 97/75 L 94/71 L 95/82 L Pulse Oximetry 98 Oxygen Delivery Oxygen Flow Rate Fraction of Inspired Oxygen 06/30/25 00:56 06/30/25 01:00 06/30/25 01:01 Temperature 36.6 C 36.6 C 36.6 C Pulse Rate 104 H 104 H 105 H Respiratory Rate 16 16 16 Blood Pressure 94/70 L 71/56 L Pulse Oximetry 98 Oxygen Delivery Oxygen Flow Rate Fraction of Inspired Oxygen 06/30/25 01:03 06/30/25 01:06 06/30/25 01:08 Temperature 36.6 C 36.6 C 36.6 C Pulse Rate 105 H 104 H 103 H Respiratory Rate 16 16 16 Blood Pressure 68/56 L 71/57 L 82/68 L Pulse Oximetry Oxygen Delivery Oxygen Flow Rate Fraction of Inspired Oxygen 06/30/25 01:11 06/30/25 01:11 06/30/25 01:13 Temperature 36.7 C 36.6 C Pulse Rate 107 H 107 H 105 H Respiratory Rate 16 16 Blood Pressure 68/50 L 96/69 L 86/73 L Pulse Oximetry Oxygen Delivery Oxygen Flow Rate Fraction of Inspired Oxygen 06/30/25 01:15 06/30/25 01:16 06/30/25 01:18 Temperature 36.6 C 36.6 C 36.6 C Pulse Rate 105 H 107 H 103 H Respiratory Rate 16 16 16 Blood Pressure 84/65 L 80/67 L Pulse Oximetry Oxygen Delivery Oxygen Flow Rate Fraction of Inspired Oxygen 06/30/25 01:21 06/30/25 01:23 06/30/25 01:50 Temperature 36.7 C 36.7 C Pulse Rate 104 H 102 H 103 H Respiratory Rate 16 16 Blood Pressure 89/68 L 93/72 L Pulse Oximetry 98 Oxygen Delivery Mechanical Ventilation Oxygen Flow Rate Fraction of Inspired Oxygen 40 06/30/25 02:00 06/30/25 02:07 06/30/25 02:08 Temperature 36.8 C 36.8 C Pulse Rate 100 97 97 Respiratory Rate 18 16 16 Blood Pressure 109/72 Pulse Oximetry Oxygen Delivery Oxygen Flow Rate Fraction of Inspired Oxygen 06/30/25 02:10 06/30/25 02:12 06/30/25 02:15 Temperature 36.8 C 36.8 C 36.8 C Pulse Rate 97 97 98 Respiratory Rate 16 16 18 Blood Pressure 106/80 105/77 110/80 Pulse Oximetry Oxygen Delivery Oxygen Flow Rate Fraction of Inspired Oxygen 06/30/25 02:16 06/30/25 02:17 06/30/25 02:20 Temperature 36.8 C 36.8 C 36.8 C Pulse Rate 98 99 97 Respiratory Rate 16 18 21 H Blood Pressure 150/94 H 100/88 Pulse Oximetry 83 L 85 L 92 Oxygen Delivery Oxygen Flow Rate Fraction of Inspired Oxygen 06/30/25 02:21 06/30/25 02:22 06/30/25 02:25 Temperature 36.8 C 36.8 C Pulse Rate 95 97 104 H Respiratory Rate 18 16 26 H Blood Pressure 121/80 123/76 Pulse Oximetry Oxygen Delivery Oxygen Flow Rate Fraction of Inspired Oxygen 06/30/25 02:28 06/30/25 02:30 06/30/25 02:31 Temperature 36.8 C 36.8 C 36.9 C Pulse Rate 96 95 95 Respiratory Rate 16 16 14 Blood Pressure 130/82 117/77 Pulse Oximetry Oxygen Delivery Oxygen Flow Rate Fraction of Inspired Oxygen 06/30/25 02:32 06/30/25 02:35 06/30/25 02:37 Temperature 36.9 C 36.9 C Pulse Rate 95 94 94 Respiratory Rate 16 16 16 Blood Pressure 108/75 114/75 Pulse Oximetry Oxygen Delivery Oxygen Flow Rate Fraction of Inspired Oxygen 06/30/25 02:37 06/30/25 02:40 06/30/25 02:42 Temperature 36.9 C 36.9 C 36.9 C Pulse Rate 94 93 93 Respiratory Rate 16 16 16 Blood Pressure 117/79 112/74 116/72 Pulse Oximetry Oxygen Delivery Oxygen Flow Rate Fraction of Inspired Oxygen 06/30/25 02:45 06/30/25 02:46 06/30/25 02:47 Temperature 36.9 C 36.9 C 36.9 C Pulse Rate 93 92 93 Respiratory Rate 16 16 16 Blood Pressure 110/71 108/72 Pulse Oximetry Oxygen Delivery Oxygen Flow Rate Fraction of Inspired Oxygen 06/30/25 02:50 06/30/25 02:52 06/30/25 02:55 Temperature 36.9 C 36.8 C 36.9 C Pulse Rate 92 93 91 Respiratory Rate 17 14 16 Blood Pressure 106/71 116/72 108/70 Pulse Oximetry 94 Oxygen Delivery Oxygen Flow Rate Fraction of Inspired Oxygen 06/30/25 02:57 06/30/25 03:00 06/30/25 03:01 Temperature 36.8 C 36.8 C Pulse Rate 92 91 Respiratory Rate 16 16 Blood Pressure 109/72 107/72 Pulse Oximetry 99 Oxygen Delivery Mechanical Ventilation Oxygen Flow Rate Fraction of Inspired Oxygen 06/30/25 03:01 06/30/25 03:02 06/30/25 03:28 Temperature 36.9 C 36.9 C Pulse Rate 91 91 89 Respiratory Rate 16 16 18 Blood Pressure 111/70 Pulse Oximetry 98 98 Oxygen Delivery Oxygen Flow Rate Fraction of Inspired Oxygen Exam Narrative: GENERAL: Critically ill 59-year-old male appears older than stated age intubated and sedated HEAD: Normocephalic, atraumatic. ENT:? Mucous membranes moist. OG tube in place. CHEST: Diminished lung sounds throughout, intubated and ventilated HEART: Regular rate and rhythm. ? ABDOMEN: Soft, nontender, nondistended. EXTREMITIES: No peripheral edema. SKIN: Warm dry normal color NEURO: Sedated, reported to be alert without focal deficit prior to intubation H&P: Results Labs Labs: Short CBC 06/30/25 Range/Units 00:06 WBC 11.8 H (4.5-10.0) K/mm3 Hgb 8.6 L (14.0-18.0) g/dL Hct 26.4 L (42.0-52.0) % Plt Count 298 (150-375) k/mm3 BMP 06/30/25 00:06 Sodium 137 Potassium 3.2 L Chloride 99 Carbon Dioxide 30 BUN 13 Creatinine 0.57 L Glucose 138 H Calcium 8.1 L Cardiac Enzymes 06/30/25 Range/Units 00:06 Troponin I < 0.012 (0.000-0.034) ng/mL Liver Function 06/30/25 Range/Units 00:06 Total Bilirubin 0.4 (0.2-1.3) mg/dL AST 35 (17-59) U/L ALT 19 (6-50) U/L Alkaline Phosphatase 162 H (38-126) U/L Albumin 2.4 L (3.5-5.1) g/dL Urine 06/30/25 Range/Units 02:00 Urine Color Yellow (Yellow) Urine Appearance Clear (Clear) Urine pH 7.0 (5.0-9.0) Ur Specific [place] 1.010 (1.001-1.035) Urine Protein Trace (Negative) mg/dL Urine Glucose (UA) Negative (Negative) mg/dL ABG ABG results: PH 7.424 pCO2 42.3 PO2 465.0 HC03 27.1 Attestation: I personally reviewed and interpreted this ABG as follows: Interpretation: balanced gas with hyper oxygenation this was on 100%, titrate down oxygen Pulse Oximetry SpO2 results: 96% sat on 30% oxygen by vent Attestation: I personally reviewed and interpreted this pulse oximetry as follows: Interpretation: Patient requires oxygen on vent Imaging Chest x-ray: My impression: ETT in proper place, CVC in place Radiologist's impression: CHEST RADIOGRAPH CLINICAL HISTORY: CENTRAL LINE PLACEMENT . COMPARISON: Previous examination performed 15 minutes earlier TECHNIQUE: Single portable view of the chest. FINDINGS Left subclavian central venous catheter with its tip projecting over the left brachiocephalic vein/SVC confluence. Endotracheal tube is identified with its tip projecting approximately 3cm above the base of the katheryn. Orogastric tube identified with its tip extending below the left hemidiaphragm, presumably within the stomach. The remainder of the cardiomediastinal silhouette is otherwise unremarkable. Right-sided pleural effusion. Right apical scarring with volume loss in the right hemithorax. IMPRESSION: Right-sided pleural effusion with right apical scarring and volume loss. The left hemithorax is clear. The visualized portion of the left lung is inflated. Supportive lines and tubes in good position. Reviewed, dictated and finalized at location A. Abdominal x-ray: My impression: Gastric tube in place Radiologist's impression: Exam: Abdomen 1V HISTORY: OG TUBE PLACEMENT COMPARISON: None. TECHNIQUE: Supine images of the lower chest and upper abdomen FINDINGS: Nasogastric tube extends into the left upper quadrant, presumably within the stomach. IMPRESSION: Nasogastric tube in good position and ready for immediate use. Reviewed, dictated and finalized at location A. Assessment and Plan Assessment and plan (1) Acute on chronic respiratory failure: Qualifiers: Respiratory failure complication: hypoxia Qualified Code(s): J96.21 - Acute and chronic respiratory failure with hypoxia Code(s): J96.20 - Acute and chronic respiratory failure, unspecified whether with hypoxia or hypercapnia Status: Acute Assessment and Plan: Severe COPD exacerbation with silent chest in ER Intubation with terbutaline and ketamine given to ease bronchoconstriction -Midazolam and Fentanyl drips ordered for sedation (2) Acute exacerbation of chronic obstructive pulmonary disease: Code(s): J44.1 - Chronic obstructive pulmonary disease with (acute) exacerbation Status: Acute Assessment and Plan: See above Cefepime and azithromycin ordered due to prior Pseudomonas pneumonia and MAC pneumonia -Infectious disease consult suggested -Pulmonary consult ordered (3) Tobacco dependence: Code(s): F17.200 - Nicotine dependence, unspecified, uncomplicated Status: Acute Assessment and Plan: Nicotine patch ordered (4) Mycobacterium avium complex: Code(s): A31.0 - Pulmonary mycobacterial infection Status: Acute Assessment and Plan: Sputum Culture x3 ordered for AFB (5) Hyperglycemia due to type 2 diabetes mellitus: Qualifiers: Diabetes mellitus watermelon inspector insulin use: with watermelon inspector use Qualified Code(s): E11.65 - Type 2 diabetes mellitus with hyperglycemia; Z79.4 - medical terminologist (current) use of insulin Code(s): E11.65 - Type 2 diabetes mellitus with hyperglycemia Status: Acute Assessment and Plan: -Still significantly elevated glucose present -Q4H glucose check with high dose SSI -Not in DKA (6) Chronic anticoagulation: Code(s): Z79.01 - MCFP (current) use of 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 Status: Acute Assessment and Plan: -Continue Xarelto unless changed by ICU (7) Acute hypotension: Code(s): I95.9 - Hypotension, unspecified Status: Acute Assessment and Plan: -Hypotensive in ER, CVC inserted and norepinephrine drip used for BP management (8) Anxiety and depression: Code(s): F41.9 - Anxiety disorder, unspecified; F32.9 - Major depressive disorder, single episode, unspecified Status: Chronic Assessment and Plan: -History noted (9) Chronic anemia: Code(s): D64.9 - Anemia, unspecified Status: Chronic Assessment and Plan: -History noted (10) Hyperlipidemia associated with type 2 diabetes mellitus: Code(s): E11.69 - Type 2 diabetes mellitus with other specified complication; E78.5 - Hyperlipidemia, unspecified Status: Chronic Assessment and Plan: -History noted (11) Coronary artery disease: Code(s): I25.10 - Atherosclerotic heart disease of [place] coronary artery without angina pectoris Status: Chronic Assessment and Plan: -History noted -Echo ordered (12) Acute lactic acidosis: Code(s): E87.21 - Acute metabolic acidosis Status: Acute Assessment and Plan: -Broad spectrum ABX ordered -Additional IV fluids ordered -Hypotension likely worsened lactic acid -ABG slightly alkalotic at 0520 Quality VTE Prophylaxis VTE prophylaxis: pharmacologic ordered (Xarelto) Due to a high probability of clinically significant, life threatening deterioration, the patient required my highest level of preparedness to intervene emergently and I personally spent this critical care time directly and personally managing the patient. This critical care time included obtaining a history; examining the patient; pulse oximetry; ordering and review of studies; arranging urgent treatment with development of a management plan; evaluation of patient's response to treatment; frequent reassessment; and discussions with other providers. It was exclusive of separately billable procedures and treating other patients and teaching time. Please see Assessment and Plan section and the rest of the note for further information on patient assessment and treatment. Critical Care time: 55 minutes Hospitalist MIPS Advance Care Plan I have confirmed that the patient's Advanced Care Plan is present, code status is documented, or surrogate decision maker is listed in patient medical record.: Yes Medication Reconciliation I have utilized all available resources to obtain, update and review the patients current medications (includes all prescriptions, OTC, herbals, cannabis, and nutritional supplements).: No The patient is not eligible for med reconciliation; the patient is in a emergent medical situation where delaying treatment would jeopardize the patients health.: Yes
[2025-06-30 05:31] LABS: Alveolar/Arterial O2 Gradient 74.4 mmHg; Fractional Inspired Oxygen 30 %; HCO3 ABG 27.4 mEq/l (22.0-26.0); Oxygen Content ABG 12.2 %vol (16.0-22.0); Oxygen Saturation ABG 97.9 % (95.0-100.0); PCO2 ABG 36.0 mmHg (35.0-45.0); PO2 ABG 97.2 mmHg (80.0-100.0); PO2 FiO2 Ratio Arterial Blood 3.24 %
[2025-06-30 05:37] LABS: Modified Allen's Test Pass; Site Drawn LEFT RADIAL
[2025-06-30 05:38] LABS: Arterial Blood Gas Tidal Volume 400 ml; Arterial Blood Gas Ventilator rate 16 /MIN
[2025-06-30] MEDS: CEFEPIME 2 GM in SODIUM CHLORIDE 0.9% IV 50 ML 100 ML IVPB ×2 (06:00→13:50)
[2025-06-30 06:19] LABS: Hematocrit 23.7 % (42.0-52.0); Hemoglobin 7.7 g/dL (14.0-18.0); Immature Granulocyte Percent A 0.4 % (0-0.5); Lymphocytes Absolute Auto 0.37 K/mm3 (0.9-3.2); Mean Corpuscular HGB Conc 32.5 g/dl (32-36); Mean Corpuscular Hemoglobin 32.6 pg (26-34); Mean Corpuscular Volume 100.4 fl (80-100); Nucleated Red Blood Cells Absolute Auto 0.000 K/mm3 (0.0-0.012); Nucleated Red Blood Cells Perc 0.0 % (0.0-0.2); Platelet Count Result 270 k/mm3 (150-375); Red Blood Count 2.36 M/mm3 (4.6-6.20); White Blood Count 4.9 K/mm3 (4.5-10.0)
[2025-06-30] MEDS: INSULIN ASPART (*BKC) 100 UNITS/ML SUB-Q (06:23)
[2025-06-30] MEDS: FENTANYL 2,500MCG/NS250ML(*CRX 2,500 MCG/250 ML BAG IV CONT (06:26)
[2025-06-30 06:40] LABS: NT Pro B Type Natriuretic Pept 3820 pg/mL (19.9-100); Troponin I < 0.012 ng/mL (0.000-0.034)
[2025-06-30 06:42] LABS: Alanine Aminotransferase 22 U/L (6-50); Albumin Level 2.7 g/dL (3.5-5.1); Alkaline Phosphatase 130 U/L (38-126); Anion Gap 7 mmol/L (4-12); Anisocytosis 1+; Aspartate Amino Transferase 33 U/L (17-59); Bilirubin,Total 0.5 mg/dL (0.2-1.3); Blood Urea Nitrogen 14 mg/dL (9-20); Calcium 8.5 mg/dL (8.4-10.2); Carbon Dioxide 28 mmol/L (22-30); Chloride 99 mmol/L (98-107); Estimated CRCL calculation 93 ml/min; Estimated Glomerular Filt Rate > 60; Glucose 254 mg/dL (65-110); Hypochromasia 1+; Magnesium 1.8 mg/dL (1.6-2.3); Potassium 3.8 mmol/L (3.4-5.0); Schistocytes None Seen; Sodium 134 mmol/L (137-145); Target Cells 1+; Total Protein 6.8 g/dL (6.3-8.2)
[2025-06-30 06:55] LABS: Hemoglobin A1C 4.9 % (<5.7)
[2025-06-30] MEDS: SODIUM CHLORIDE 0.9% IV 1,000 ML 999 ML IV CONT (07:54)
[2025-06-30] MEDS: PANTOPRAZOLE SODIUM IV 40 MG VIAL IV PUSH (07:55)
--- NOTE | 2025-06-30 08:28 | WPDCNINT ---
Assessment and Plan Assessment and plan (1) Respiratory failure requiring intubation: Code(s): J96.90 - Respiratory failure, unspecified, unspecified whether with hypoxia or hypercapnia Status: Acute Assessment and Plan: 06/30: Patient presented in the early hours of 06/30 with respiratory extremis, possible COPD exacerbation, ?pneumonia, has a history of PE -06/30: Intubated in the ED upon arrival -currently on CMV mode of ventilation, peep of 5, 30% FiO2, maintain O2 sats greater than 90-92% -ABGs and chest x-ray reviewed, ventilator adjusted -continue bronchodilators and home Trelegy Ellipta -continue Solu-Medrol -sedated with fentanyl and Versed infusion, maintain RASS of 0 to -2, daily SBT and SAT (2) COPD exacerbation: Code(s): J44.1 - Chronic obstructive pulmonary disease with (acute) exacerbation Status: Acute Assessment and Plan: Acute respiratory failure likely related to COPD exacerbation -continue steroids, mechanical ventilation, bronchodilators (3) Shock: Code(s): R57.9 - Shock, unspecified Status: Acute Assessment and Plan: Patient presented with shock on likely multifactorial hypovolemia, septic -patient was given 2 L IV fluid bolus in the ER, central line was inserted in the left subclavian started on Levophed -currently on Levophed, maintain MAP > 65 mmHg or SBP > 100 mmHg for adequate end organ perfusion -06/30: Blood cultures have been obtained and pending -812: Urine cultures obtained and pending -06/30: Sputum cultures have been ordered along with AFB culture and smear -patient started on cefepime and azithromycin (06/30) -MRSA screen is negative -lactic acid levels elevated this morning, received ended 1 L IV fluid bolus -monitor lactic acid levels -continue maintenance IV fluids, (4) Diabetes mellitus: Qualifiers: Diabetes mellitus type: type 2 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: with senior care use Diabetes mellitus complication status: with other specified complication Qualified Code(s): E11.69 - Type 2 diabetes mellitus with other specified complication; Z79.4 - skilled nursing (current) use of insulin Code(s): E11.9 - Type 2 diabetes mellitus without complications Status: Acute Assessment and Plan: Sliding scale insulin Accu-Cheks (5) Systolic congestive heart failure: Code(s): I50.20 - Unspecified systolic (congestive) heart failure Status: Acute Assessment and Plan: Patient has a history of coronary artery disease, CHF with EF of 40% on echocardiogram 12/04/2024 -proBNP was 3820 -chest x-ray did not show any pulmonary edema -repeat echocardiogram has been ordered (6) Tobacco dependence: Code(s): F17.200 - Nicotine dependence, unspecified, uncomplicated Status: Acute Assessment and Plan: Nicotine patch was placed by hospitalist (7) Chronic anemia: Code(s): D64.9 - Anemia, unspecified Status: Chronic Assessment and Plan: Patient has a history of AML status post bone marrow transplant -continue tacrolimus and mycophenolate Mofetil -check tacrolimus level -hemoglobin 7.7 this morning, continue to monitor, will transfuse for Hb < 7.0 (8) Chronic anticoagulation: Code(s): Z79.01 - skilled nursing (current) use of 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 Status: Acute Assessment and Plan: Patient has a history of PE, on rivaroxaban, will continue Plan DVT prophylaxis: Rivaroxaban Stress ulcer prophylaxis: Protonix Nutrition: Will start tube feeds Code Status: Full code Critical Care Time Spent: 51 minutes Due to a high probability of clinically significant, life threatening deterioration, the patient required my highest level of preparedness to intervene emergently and I personally spent this critical care time directly and personally managing the patient. This critical care time included obtaining a history; examining the patient; pulse oximetry; ordering and review of studies; arranging urgent treatment with development of a management plan; evaluation of patient's response to treatment; frequent reassessment; and discussions with other providers. It was exclusive of separately billable procedures and treating other patients and teaching time. Please see Assessment and Plan section and the rest of the note for further information on patient assessment and treatment This dictation may have been done utilizing a voice recognition system. Attempts have been made to correct errors. However, there may be uncorrected grammatical, spelling, and recognitions errors present. Yarn Washer Consult Note Consult date: 06/30/25 Reason for consult: Acute respiratory failure, COPD exacerbation, hypoxia, respiratory extremis HPI: Brady Jones is a 59 year old male with significant past medical history of bone marrow transplant, COPD with chronic respiratory failure on 5 L home O2, Mac pneumonia, Pseudomonas pneumonia, type 2 diabetes with recent admission for DKA, coronary artery disease status post stents in RCA, depression, AML, hyperlipidemia, pulmonary embolism, peripheral neuropathy, CHF presented to the ED in the early hours of 06/30/2025 with complains of respiratory distress which has been progressively worsening since yesterday (06/29) evening. EMS was called upon arrival patient was found to be in respiratory extremis and placed him on BiPAP, Decadron IV was given, nebulizer treatments along with magnesium sulfate in IV fluids. Patient was requesting for intubation as he could not move any air breathe. He was successfully intubated in the ER, did have some low blood pressures, was given 2 L IV fluid bolus, left subclavian central line was inserted, patient started on Levophed. Patient was started on cefepime, and azithromycin and transferred to the ICU for further management. Labs in the ER: WBC 11.8, hemoglobin 8.6, platelets 298, INR 1.2, ABGs post extubation load pretty good. Sodium 137, potassium 3.2, CO2 30, anion gap 8, BUN 13, creatinine 0.57, lactic acid 3.6, LFTs within normal limits, troponin negative x2. UA was negative. MRSA screen was negative Chest x-ray showed right apical scarring and volume loss with right hemithorax with a right-sided pleural effusion Patient seen and examined the ICU this morning, remains intubated on CMV mode of ventilation, peep of 5, 30% FiO2. Sedated with fentanyl and Versed infusion, does not open of follows simple commands, withdraws to pain. Patient remains on Levophed at 5 mcg/min. Lactic acid is elevated this morning to 5.8. Afebrile, low urine out Review of Systems Review of Systems: ROS unobtainable: Yes unobtainable due to endotracheal tube, unobtainable due to medical condition and unobtainable due to mental status PMFSH Past Medical History Medical History Stenosis of right carotid artery 75 to 90% Type 2 diabetes mellitus Chronic obstructive pulmonary disease Systolic congestive heart failure Pancreatitis Non-tuberculous mycobacterial pneumonia MSSA bacteremia Osteopenia Pseudomonas pneumonia Mycobacterium avium complex Chronic wyrdg-ugqcak-edyg disease Chronic respiratory failure with hypoxia, on home oxygen therapy Coronary artery disease Pill esophagitis ST elevation (STEMI) myocardial infarction (12/30/22) Chronic anticoagulation Immunocompromised patient patient on anti rejection medications Positive nasal culture for methicillin resistant Staphylococcus aureus Deep venous thrombosis Chronic obstructive pulmonary disease Sciatica Eczema Anxiety Depression Peyronie's disease Emphysema/COPD 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 Peripheral neuropathy Pulmonary emboli Hyperlipidemia Surgical History Surgical History History of allogeneic hematopoietic stem cell transplant History of bone marrow transplant (2008) History of cataract extraction with lens replacement History of heart artery stent (12/30/22) 100% occlusion mid RCA s/p drug-eluting stent, left coronary system with hyrc-op-mjihmknp disease History of orthopedic surgery Left tibia liz placement Family History Family History Mother Acute myocardial infarction, Onset Age: 42 Father COPD (chronic obstructive pulmonary disease) Diabetes mellitus Alcohol abuse Social History Social History Social History: Surrogate medical decision maker: Lissy Kaiser, friend/roommate. Code status: Full code. Smoking packs per day: 0.25 Smoking cigarettes per day: 5.0 Years smoked: 44 Smoking pack-years: 11.00 Smoking status: Current some day smoker Alcohol intake: unknown Substance use: unknown Do You Feel Safe in your Home?: Yes Lack of Transportation: No Lack of Food: Never True Current Housing: I Have Housing Concerned About Future Housing: No Difficulty Paying Gas/Electric Bills: No Difficulty Paying for Meds: No Currently Unemployed: No Education: High School Diploma/GED Difficulty w/ Childcare or Family Care: No Living arrangements: with family Additional living arrangements comments: He lives with his roommate in [place]. Occupation/Education: unemployed Spiritual care concerns: No (sedated) Agree to blood products: Yes Meds Home Medications and Allergies Home Medications ?Medication ?Instructions ?Recorded ?Confirmed ?Type rivaroxaban 20 mg tablet (Xarelto) 20 mg PO QAM 02/06/23 06/30/25 History acyclovir 400 mg tablet 400 mg PO TID #90 tabs 01/28/24 04/21/25 Rx montelukast 10 mg tablet 10 mg PO HS #30 tabs 01/28/24 04/21/25 Rx (Singulair) mycophenolate mofetil 500 mg tablet 1,000 mg (2 x 500 mg) PO Q12H #10 01/28/24 06/30/25 Rx tabs tacrolimus 0.5 mg capsule, 0.5 mg PO EVERY OTHER DAY #30 caps 01/28/24 06/30/25 Rx immediate-release (Prograf) albuterol sulfate 90 mcg/actuation 1 puff inhalation Q4-6H PRN 10/23/24 04/21/25 History aerosol inhaler Shortness Of Breath Or Wheezing ondansetron 4 mg disintegrating 4 mg PO Q8H PRN Nausea And Vomiting 10/23/24 04/21/25 History tablet pantoprazole 40 mg tablet,delayed 40 mg PO Q12H 10/23/24 04/21/25 History release isavuconazonium sulfate 186 mg 372 mg PO DAILY 11/25/24 04/21/25 History capsule (Cresemba) fluticasone fur. 200 mcg-umeclid 1 inh inhalation DAILY 02/04/25 06/30/25 History 62.5 mcg-vilant 25 mcg inhalat.powder (Trelegy Ellipta) gabapentin 300 mg capsule 300 mg PO QID 02/04/25 06/30/25 History budesonide 2 mg/10 mL oral 10 ml PO QAM AND QPM 60 days 02/10/25 04/21/25 Rx suspension in packet (Eohilia) #1,200 mL ethambutol 400 mg tablet 800 mg (2 x 400 mg) PO DAILY 60 02/11/25 04/21/25 Rx days #120 tabs tamsulosin 0.4 mg capsule 0.4 mg PO QAM #30 caps 02/11/25 04/21/25 Rx atorvastatin 40 mg tablet 40 mg PO QPM 04/21/25 06/30/25 History albuterol sulfate 2.5 mg/3 mL See Rx Instructions .Route 05/24/25 06/30/25 Rx (0.083 %) solution for nebulization .COMPLEX #180 mL Allergies Allergy/AdvReac Type Severity Reaction Status Date / Time adhesive tape AdvReac Unknown PAPER Verified 04/21/25 11:35 TAPE,REDNESS AND IRRITATION Vital Signs Vital Signs - 24 hr 06/29/25 22:53 06/29/25 23:11 06/29/25 23:15 Temperature Pulse Rate 114 H 118 H Respiratory Rate 38 H Blood Pressure Pulse Oximetry 76 L 100 Oxygen Delivery EMS-CPAP Mechanical Ventilation Oxygen Flow Rate 15 Fraction of Inspired Oxygen 100 06/30/25 00:41 06/30/25 00:42 06/30/25 00:43 Temperature 97.7 F 97.7 F 97.7 F Pulse Rate 107 H 107 H 107 H Respiratory Rate 16 16 16 Blood Pressure 73/49 L 73/56 L Pulse Oximetry Oxygen Delivery Oxygen Flow Rate Fraction of Inspired Oxygen 06/30/25 00:45 06/30/25 00:46 06/30/25 00:47 Temperature 97.7 F 97.7 F 97.8 F Pulse Rate 106 H 107 H 112 H Respiratory Rate 16 16 12 Blood Pressure 73/52 L 91/76 L Pulse Oximetry Oxygen Delivery Oxygen Flow Rate Fraction of Inspired Oxygen 06/30/25 00:48 06/30/25 00:51 06/30/25 00:53 Temperature 97.8 F 97.8 F 97.8 F Pulse Rate 107 H 105 H 110 H Respiratory Rate 16 16 16 Blood Pressure 97/75 L 94/71 L 95/82 L Pulse Oximetry 98 Oxygen Delivery Oxygen Flow Rate Fraction of Inspired Oxygen 06/30/25 00:56 06/30/25 01:00 06/30/25 01:01 Temperature 97.8 F 97.8 F 97.8 F Pulse Rate 104 H 104 H 105 H Respiratory Rate 16 16 16 Blood Pressure 94/70 L 71/56 L Pulse Oximetry 98 Oxygen Delivery Oxygen Flow Rate Fraction of Inspired Oxygen 06/30/25 01:03 06/30/25 01:06 06/30/25 01:08 Temperature 97.9 F 97.9 F 97.9 F Pulse Rate 105 H 104 H 103 H Respiratory Rate 16 16 16 Blood Pressure 68/56 L 71/57 L 82/68 L Pulse Oximetry Oxygen Delivery Oxygen Flow Rate Fraction of Inspired Oxygen 06/30/25 01:11 06/30/25 01:11 06/30/25 01:13 Temperature 98.0 F 97.9 F Pulse Rate 107 H 107 H 105 H Respiratory Rate 16 16 Blood Pressure 68/50 L 96/69 L 86/73 L Pulse Oximetry Oxygen Delivery Oxygen Flow Rate Fraction of Inspired Oxygen 06/30/25 01:15 06/30/25 01:16 06/30/25 01:18 Temperature 97.9 F 97.9 F 97.9 F Pulse Rate 105 H 107 H 103 H Respiratory Rate 16 16 16 Blood Pressure 84/65 L 80/67 L Pulse Oximetry Oxygen Delivery Oxygen Flow Rate Fraction of Inspired Oxygen 06/30/25 01:21 06/30/25 01:23 06/30/25 01:50 Temperature 98.0 F 98.0 F Pulse Rate 104 H 102 H 103 H Respiratory Rate 16 16 Blood Pressure 89/68 L 93/72 L Pulse Oximetry 98 Oxygen Delivery Mechanical Ventilation Oxygen Flow Rate Fraction of Inspired Oxygen 40 06/30/25 02:00 06/30/25 02:07 06/30/25 02:08 Temperature 98.2 F 98.2 F Pulse Rate 100 97 97 Respiratory Rate 18 16 16 Blood Pressure 109/72 Pulse Oximetry Oxygen Delivery Oxygen Flow Rate Fraction of Inspired Oxygen 06/30/25 02:10 06/30/25 02:12 06/30/25 02:15 Temperature 98.2 F 98.2 F 98.2 F Pulse Rate 97 97 98 Respiratory Rate 16 16 18 Blood Pressure 106/80 105/77 110/80 Pulse Oximetry Oxygen Delivery Oxygen Flow Rate Fraction of Inspired Oxygen 06/30/25 02:16 06/30/25 02:17 06/30/25 02:20 Temperature 98.2 F 98.2 F 98.2 F Pulse Rate 98 99 97 Respiratory Rate 16 18 21 H Blood Pressure 150/94 H 100/88 Pulse Oximetry 83 L 85 L 92 Oxygen Delivery Oxygen Flow Rate Fraction of Inspired Oxygen 06/30/25 02:21 06/30/25 02:22 06/30/25 02:25 Temperature 98.3 F 98.3 F Pulse Rate 95 97 104 H Respiratory Rate 18 16 26 H Blood Pressure 121/80 123/76 Pulse Oximetry Oxygen Delivery Oxygen Flow Rate Fraction of Inspired Oxygen 06/30/25 02:28 06/30/25 02:30 06/30/25 02:31 Temperature 98.3 F 98.3 F 98.4 F Pulse Rate 96 95 95 Respiratory Rate 16 16 14 Blood Pressure 130/82 117/77 Pulse Oximetry Oxygen Delivery Oxygen Flow Rate Fraction of Inspired Oxygen 06/30/25 02:32 06/30/25 02:35 06/30/25 02:37 Temperature 98.4 F 98.4 F Pulse Rate 95 94 94 Respiratory Rate 16 16 16 Blood Pressure 108/75 114/75 Pulse Oximetry Oxygen Delivery Oxygen Flow Rate Fraction of Inspired Oxygen 06/30/25 02:37 06/30/25 02:40 06/30/25 02:42 Temperature 98.4 F 98.4 F 98.4 F Pulse Rate 94 93 93 Respiratory Rate 16 16 16 Blood Pressure 117/79 112/74 116/72 Pulse Oximetry Oxygen Delivery Oxygen Flow Rate Fraction of Inspired Oxygen 06/30/25 02:45 06/30/25 02:46 06/30/25 02:47 Temperature 98.4 F 98.4 F 98.4 F Pulse Rate 93 92 93 Respiratory Rate 16 16 16 Blood Pressure 110/71 108/72 Pulse Oximetry Oxygen Delivery Oxygen Flow Rate Fraction of Inspired Oxygen 06/30/25 02:50 06/30/25 02:52 06/30/25 02:55 Temperature 98.4 F 98.3 F 98.4 F Pulse Rate 92 93 91 Respiratory Rate 17 14 16 Blood Pressure 106/71 116/72 108/70 Pulse Oximetry 94 Oxygen Delivery Oxygen Flow Rate Fraction of Inspired Oxygen 06/30/25 02:57 06/30/25 03:00 06/30/25 03:01 Temperature 98.3 F 98.3 F Pulse Rate 92 91 Respiratory Rate 16 16 Blood Pressure 109/72 107/72 Pulse Oximetry 99 Oxygen Delivery Mechanical Ventilation Oxygen Flow Rate Fraction of Inspired Oxygen 06/30/25 03:01 06/30/25 03:02 06/30/25 03:28 Temperature 98.4 F 98.4 F Pulse Rate 91 91 89 Respiratory Rate 16 16 18 Blood Pressure 111/70 Pulse Oximetry 98 98 Oxygen Delivery Oxygen Flow Rate Fraction of Inspired Oxygen 06/30/25 04:00 06/30/25 04:00 06/30/25 04:13 Temperature Pulse Rate 97 97 88 Respiratory Rate 22 H Blood Pressure Pulse Oximetry 98 98 Oxygen Delivery Mechanical Ventilation Mechanical Ventilation Oxygen Flow Rate Fraction of Inspired Oxygen 30 30 06/30/25 04:15 06/30/25 04:15 06/30/25 04:15 Temperature Pulse Rate 90 90 Respiratory Rate 16 Blood Pressure 98/70 L Pulse Oximetry Oxygen Delivery Oxygen Flow Rate Fraction of Inspired Oxygen 30 06/30/25 04:36 06/30/25 04:54 06/30/25 06:00 Temperature 97.4 F L Pulse Rate 96 94 76 Respiratory Rate 18 Blood Pressure 116/75 Pulse Oximetry 97 96 Oxygen Delivery Mechanical Ventilation Oxygen Flow Rate Fraction of Inspired Oxygen 30 06/30/25 06:00 06/30/25 06:26 06/30/25 07:00 Temperature 97.6 F 96.2 F L Pulse Rate 86 81 79 Respiratory Rate 16 16 16 Blood Pressure 111/75 136/85 Pulse Oximetry 96 96 Oxygen Delivery Oxygen Flow Rate Fraction of Inspired Oxygen 06/30/25 08:00 06/30/25 08:15 06/30/25 08:17 Temperature 95.5 F L Pulse Rate 76 76 76 Respiratory Rate 16 14 Blood Pressure 136/97 H Pulse Oximetry 97 96 Oxygen Delivery Mechanical Ventilation Oxygen Flow Rate Fraction of Inspired Oxygen 30 Exam Narrative: General: Emaciated, in the appearing gentleman, intubated and sedated, in no acute distress HEENT:? Sunken eyes, pupils equal and reactive sclera is clear, ETT in place Neck:? Supple Respiratory:? Clear to auscultation bilaterally, coarse breath sounds at bases and right upper lobe, no wheezing, adequate air entry Cardiac:? S1-S2 normal, regular rate and rhythm Abdomen:? Soft, nontender, nondistended, hypoactive bowel sounds Extremities:? No edema, palpable pedal pulse Neuro:? Intubated, sedated, does not open his eyes or follow simple commands Skin:? Warm and dry Psych:? Unable to assess at this time Results Labs 06/30/25 06:13 06/30/25 06:13 Labs: Short CBC 06/30/25 06/30/25 Range/Units 00:06 06:13 WBC 11.8 H 4.9 (4.5-10.0) K/mm3 Hgb 8.6 L 7.7 L (14.0-18.0) g/dL Hct 26.4 L 23.7 L (42.0-52.0) % Plt Count 298 270 (150-375) k/mm3 BMP 06/30/25 06/30/25 00:06 06:13 Sodium 137 134 L Potassium 3.2 L 3.8 Chloride 99 99 Carbon Dioxide 30 28 BUN 13 14 Creatinine 0.57 L 0.50 L Glucose 138 H 254 H Calcium 8.1 L 8.5 Cardiac Enzymes 06/30/25 06/30/25 Range/Units 00:06 06:13 Troponin I < 0.012 < 0.012 (0.000-0.034) ng/mL Liver Function 06/30/25 06/30/25 Range/Units 00:06 06:13 Total Bilirubin 0.4 0.5 (0.2-1.3) mg/dL AST 35 33 (17-59) U/L ALT 19 22 (6-50) U/L Alkaline Phosphatase 162 H 130 H (38-126) U/L Albumin 2.4 L 2.7 L (3.5-5.1) g/dL Urine 06/30/25 Range/Units 02:00 Urine Color Yellow (Yellow) Urine Appearance Clear (Clear) Urine pH 7.0 (5.0-9.0) Ur Specific Odd 1.010 (1.001-1.035) Urine Protein Trace (Negative) mg/dL Urine Glucose (UA) Negative (Negative) mg/dL Quality VTE Prophylaxis VTE prophylaxis: pharmacologic ordered Hospitalist MIPS Advance Care Plan I have confirmed that the patient's Advanced Care Plan is present, code status is documented, or surrogate decision maker is listed in patient medical record.: Yes Medication Reconciliation I have utilized all available resources to obtain, update and review the patients current medications (includes all prescriptions, OTC, herbals, cannabis, and nutritional supplements).: Yes
[2025-06-30 08:32] LABS: Influenza A QL RT-PCR Negative (Negative); Influenza B QL RT-PCR Negative (Negative); RSV RNA, RT-PCR Negative (Negative); SARS-CoV-2 RNA PCR Negative (Negative)
[2025-06-30 09:00] LABS: Cannabinoid Screen Urine Negative (Negative)
[2025-06-30 09:07] LABS: MRSA (PCR) NOT DETECTED (NOT DETECTE)
[2025-06-30] MEDS: NICOTINE (*PBKC) 21 MG PATCH 1 PATCH TRANSDERM (09:17)
[2025-06-30] MEDS: TACROLIMUS 0.5 MG CAPSULE PO (09:17)
[2025-06-30] MEDS: MINERAL OIL/WHITE PETROLATUM OINTMENT 1 APPLIC EACH EYE (09:17)
--- NOTE | 2025-06-30 12:47 | P.CDI_ITS ---
CDI Query Clarification Request BMI: 16.5 Nutritional Diagnostic Statement: Please refer to the comprehensive nutrition assessment for further information. If you agree with diagnosis of Severe Protein Calorie Malnutrition as related to inadequate protein energy intake with increased protein-energy needs in setting of chronic disease as evidenced by significant with loss of 15%(19 ibs) in 5 months; severe muscle wasting (temporalis/clavicle) and severe subcutaneous fat loss (orbital fat pads). Please specify severity if known: * Mild * Moderate * Severe * Other/Unknown <Silva Tovar RN - Last Filed: 06/30/25 12:48> Clarified Diagnosis Clarified Diagnosis: Severe protein malnutrition <Camilo Friedman MD - Last Filed: 07/01/25 07:15>
[2025-06-30] MEDS: FLUCONAZOLE 400 MG/NACL 200 ML 400 MG/200 ML BAG 100 MG IVPB (13:51)
[2025-06-30] MEDS: CENTRAL LINE FLUSH 10 ML IV PUSH (13:51)
[2025-06-30] MEDS: metroNIDAZOLE 500 MG/ISO 100ML 500 MG/100 ML BAG 100 MG IVPB (14:32)
--- NOTE | 2025-06-30 15:34 | PC.NURSE ---
Attempted to get consent for patient transfer to [facility] from roommate Lissy Job at [phone]. Left message telling her patient being transfered for higher level of care.
--- NOTE | 2025-06-30 16:46 | P.PNIM_ITS ---
Progress Note: A&P Assessment and Plan (1) Respiratory failure requiring intubation: Code(s): J96.90 - Respiratory failure, unspecified, unspecified whether with hypoxia or hypercapnia Status: Acute Assessment and Plan: 06/30: Patient presented in the early hours of 06/30 with respiratory extremis, possible COPD exacerbation, ?pneumonia, has a history of PE -06/30: Intubated in the ED upon arrival -currently on CMV mode of ventilation, peep of 5, 30% FiO2, maintain O2 sats greater than 90-92% -ABGs and chest x-ray reviewed, ventilator adjusted -continue bronchodilators and home Trelegy Ellipta -continue Solu-Medrol -sedated with fentanyl and Versed infusion, maintain RASS of 0 to -2, daily SBT and SAT (2) COPD exacerbation: Code(s): J44.1 - Chronic obstructive pulmonary disease with (acute) exacerbation Status: Acute Assessment and Plan: Acute respiratory failure likely related to COPD exacerbation -continue steroids, mechanical ventilation, bronchodilators (3) Shock: Code(s): R57.9 - Shock, unspecified Status: Acute Assessment and Plan: Patient presented with shock on likely multifactorial hypovolemia, septic -patient was given 2 L IV fluid bolus in the ER, central line was inserted in the left subclavian started on Levophed -currently on Levophed, maintain MAP > 65 mmHg or SBP > 100 mmHg for adequate end organ perfusion -06/30: Blood cultures have been obtained and pending -812: Urine cultures obtained and pending -06/30: Sputum cultures have been ordered along with AFB culture and smear -patient started on cefepime and azithromycin (06/30) -MRSA screen is negative -lactic acid levels elevated this morning, received ended 1 L IV fluid bolus -monitor lactic acid levels -continue maintenance IV fluids, (4) Diabetes mellitus: Qualifiers: Diabetes mellitus type: type 2 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: with 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 Diabetes mellitus complication status: with other specified complication Qualified Code(s): E11.69 - Type 2 diabetes mellitus with other specified complication; Z79.4 - 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 Code(s): E11.9 - Type 2 diabetes mellitus without complications Status: Acute Assessment and Plan: Sliding scale insulin Accu-Cheks (5) Systolic congestive heart failure: Code(s): I50.20 - Unspecified systolic (congestive) heart failure Status: Acute Assessment and Plan: Patient has a history of coronary artery disease, CHF with EF of 40% on echocardiogram 12/04/2024 -proBNP was 3820 -chest x-ray did not show any pulmonary edema -repeat echocardiogram has been ordered (6) Tobacco dependence: Code(s): F17.200 - Nicotine dependence, unspecified, uncomplicated Status: Acute Assessment and Plan: Nicotine patch was placed by hospitalist (7) Chronic anemia: Code(s): D64.9 - Anemia, unspecified Status: Chronic Assessment and Plan: Patient has a history of AML status post bone marrow transplant -continue tacrolimus and mycophenolate Mofetil -check tacrolimus level -hemoglobin 7.7 this morning, continue to monitor, will transfuse for Hb < 7.0 (8) Chronic anticoagulation: Code(s): Z79.01 - [facility]FP (current) use of 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 Status: Acute Assessment and Plan: Patient has a history of PE, on rivaroxaban, will continue Plan DVT prophylaxis: Rivaroxaban Stress ulcer prophylaxis: Protonix Nutrition: Will start tube feeds Code Status: Full code Subjective Date/time seen: 06/30/25 16:46 Interval history: Patient has multiple comorbid conditions including MAC.Pending transfer to [facility]. Review of Systems Review of Systems: ROS unobtainable: Yes unobtainable due to endotracheal tube, unobtainable due to medical condition and unobtainable due to mental status Exam Narrative: General: Emaciated, in the appearing gentleman, intubated and sedated, in no acute distress HEENT:? Sunken eyes, pupils equal and reactive sclera is clear, ETT in place Neck:? Supple Respiratory:? Clear to auscultation bilaterally, coarse breath sounds at bases and right upper lobe, no wheezing, adequate air entry Cardiac:? S1-S2 normal, regular rate and rhythm Abdomen:? Soft, nontender, nondistended, hypoactive bowel sounds Extremities:? No edema, palpable pedal pulse Neuro:? Intubated, sedated, does not open his eyes or follow simple commands Skin:? Warm and dry Psych:? Unable to assess at this time Objective Data Vital Signs Vital Signs: Vital Signs - 24 hr 06/29/25 22:53 06/29/25 23:11 06/29/25 23:15 Temperature Pulse Rate 114 H 118 H Respiratory Rate 38 H Blood Pressure Pulse Oximetry 76 L 100 Oxygen Delivery EMS-CPAP Mechanical Ventilation Oxygen Flow Rate 15 Fraction of Inspired Oxygen 100 06/30/25 00:41 06/30/25 00:42 06/30/25 00:43 Temperature 97.7 F 97.7 F 97.7 F Pulse Rate 107 H 107 H 107 H Respiratory Rate 16 16 16 Blood Pressure 73/49 L 73/56 L Pulse Oximetry Oxygen Delivery Oxygen Flow Rate Fraction of Inspired Oxygen 06/30/25 00:45 06/30/25 00:46 06/30/25 00:47 Temperature 97.7 F 97.7 F 97.8 F Pulse Rate 106 H 107 H 112 H Respiratory Rate 16 16 12 Blood Pressure 73/52 L 91/76 L Pulse Oximetry Oxygen Delivery Oxygen Flow Rate Fraction of Inspired Oxygen 06/30/25 00:48 06/30/25 00:51 06/30/25 00:53 Temperature 97.8 F 97.8 F 97.8 F Pulse Rate 107 H 105 H 110 H Respiratory Rate 16 16 16 Blood Pressure 97/75 L 94/71 L 95/82 L Pulse Oximetry 98 Oxygen Delivery Oxygen Flow Rate Fraction of Inspired Oxygen 06/30/25 00:56 06/30/25 01:00 06/30/25 01:01 Temperature 97.8 F 97.8 F 97.8 F Pulse Rate 104 H 104 H 105 H Respiratory Rate 16 16 16 Blood Pressure 94/70 L 71/56 L Pulse Oximetry 98 Oxygen Delivery Oxygen Flow Rate Fraction of Inspired Oxygen 06/30/25 01:03 06/30/25 01:06 06/30/25 01:08 Temperature 97.9 F 97.9 F 97.9 F Pulse Rate 105 H 104 H 103 H Respiratory Rate 16 16 16 Blood Pressure 68/56 L 71/57 L 82/68 L Pulse Oximetry Oxygen Delivery Oxygen Flow Rate Fraction of Inspired Oxygen 06/30/25 01:11 06/30/25 01:11 06/30/25 01:13 Temperature 98.0 F 97.9 F Pulse Rate 107 H 107 H 105 H Respiratory Rate 16 16 Blood Pressure 68/50 L 96/69 L 86/73 L Pulse Oximetry Oxygen Delivery Oxygen Flow Rate Fraction of Inspired Oxygen 06/30/25 01:15 06/30/25 01:16 06/30/25 01:18 Temperature 97.9 F 97.9 F 97.9 F Pulse Rate 105 H 107 H 103 H Respiratory Rate 16 16 16 Blood Pressure 84/65 L 80/67 L Pulse Oximetry Oxygen Delivery Oxygen Flow Rate Fraction of Inspired Oxygen 06/30/25 01:21 06/30/25 01:23 06/30/25 01:50 Temperature 98.0 F 98.0 F Pulse Rate 104 H 102 H 103 H Respiratory Rate 16 16 Blood Pressure 89/68 L 93/72 L Pulse Oximetry 98 Oxygen Delivery Mechanical Ventilation Oxygen Flow Rate Fraction of Inspired Oxygen 40 06/30/25 02:00 06/30/25 02:07 06/30/25 02:08 Temperature 98.2 F 98.2 F Pulse Rate 100 97 97 Respiratory Rate 18 16 16 Blood Pressure 109/72 Pulse Oximetry Oxygen Delivery Oxygen Flow Rate Fraction of Inspired Oxygen 06/30/25 02:10 06/30/25 02:12 06/30/25 02:15 Temperature 98.2 F 98.2 F 98.2 F Pulse Rate 97 97 98 Respiratory Rate 16 16 18 Blood Pressure 106/80 105/77 110/80 Pulse Oximetry Oxygen Delivery Oxygen Flow Rate Fraction of Inspired Oxygen 06/30/25 02:16 06/30/25 02:17 06/30/25 02:20 Temperature 98.2 F 98.2 F 98.2 F Pulse Rate 98 99 97 Respiratory Rate 16 18 21 H Blood Pressure 150/94 H 100/88 Pulse Oximetry 83 L 85 L 92 Oxygen Delivery Oxygen Flow Rate Fraction of Inspired Oxygen 06/30/25 02:21 06/30/25 02:22 06/30/25 02:25 Temperature 98.3 F 98.3 F Pulse Rate 95 97 104 H Respiratory Rate 18 16 26 H Blood Pressure 121/80 123/76 Pulse Oximetry Oxygen Delivery Oxygen Flow Rate Fraction of Inspired Oxygen 06/30/25 02:28 06/30/25 02:30 06/30/25 02:31 Temperature 98.3 F 98.3 F 98.4 F Pulse Rate 96 95 95 Respiratory Rate 16 16 14 Blood Pressure 130/82 117/77 Pulse Oximetry Oxygen Delivery Oxygen Flow Rate Fraction of Inspired Oxygen 06/30/25 02:32 06/30/25 02:35 06/30/25 02:37 Temperature 98.4 F 98.4 F Pulse Rate 95 94 94 Respiratory Rate 16 16 16 Blood Pressure 108/75 114/75 Pulse Oximetry Oxygen Delivery Oxygen Flow Rate Fraction of Inspired Oxygen 06/30/25 02:37 06/30/25 02:40 06/30/25 02:42 Temperature 98.4 F 98.4 F 98.4 F Pulse Rate 94 93 93 Respiratory Rate 16 16 16 Blood Pressure 117/79 112/74 116/72 Pulse Oximetry Oxygen Delivery Oxygen Flow Rate Fraction of Inspired Oxygen 06/30/25 02:45 06/30/25 02:46 06/30/25 02:47 Temperature 98.4 F 98.4 F 98.4 F Pulse Rate 93 92 93 Respiratory Rate 16 16 16 Blood Pressure 110/71 108/72 Pulse Oximetry Oxygen Delivery Oxygen Flow Rate Fraction of Inspired Oxygen 06/30/25 02:50 06/30/25 02:52 06/30/25 02:55 Temperature 98.4 F 98.3 F 98.4 F Pulse Rate 92 93 91 Respiratory Rate 17 14 16 Blood Pressure 106/71 116/72 108/70 Pulse Oximetry 94 Oxygen Delivery Oxygen Flow Rate Fraction of Inspired Oxygen 06/30/25 02:57 06/30/25 03:00 06/30/25 03:01 Temperature 98.3 F 98.3 F Pulse Rate 92 91 Respiratory Rate 16 16 Blood Pressure 109/72 107/72 Pulse Oximetry 99 Oxygen Delivery Mechanical Ventilation Oxygen Flow Rate Fraction of Inspired Oxygen 06/30/25 03:01 06/30/25 03:02 06/30/25 03:28 Temperature 98.4 F 98.4 F Pulse Rate 91 91 89 Respiratory Rate 16 16 18 Blood Pressure 111/70 Pulse Oximetry 98 98 Oxygen Delivery Oxygen Flow Rate Fraction of Inspired Oxygen 06/30/25 04:00 06/30/25 04:00 06/30/25 04:13 Temperature Pulse Rate 97 97 88 Respiratory Rate 22 H Blood Pressure Pulse Oximetry 98 98 Oxygen Delivery Mechanical Ventilation Mechanical Ventilation Oxygen Flow Rate Fraction of Inspired Oxygen 30 30 06/30/25 04:15 06/30/25 04:15 06/30/25 04:15 Temperature Pulse Rate 90 90 Respiratory Rate 16 Blood Pressure 98/70 L Pulse Oximetry Oxygen Delivery Oxygen Flow Rate Fraction of Inspired Oxygen 30 06/30/25 04:36 06/30/25 04:54 06/30/25 06:00 Temperature 97.4 F L Pulse Rate 96 94 76 Respiratory Rate 18 Blood Pressure 116/75 Pulse Oximetry 97 96 Oxygen Delivery Mechanical Ventilation Oxygen Flow Rate Fraction of Inspired Oxygen 30 06/30/25 06:00 06/30/25 06:00 06/30/25 06:00 Temperature 97.6 F 97.6 F Pulse Rate 86 86 86 Respiratory Rate 16 16 16 Blood Pressure 111/75 111/75 Pulse Oximetry 96 96 Oxygen Delivery Oxygen Flow Rate Fraction of Inspired Oxygen 06/30/25 06:00 06/30/25 06:26 06/30/25 07:00 Temperature 96.2 F L Pulse Rate 86 81 79 Respiratory Rate 16 16 Blood Pressure 111/75 136/85 Pulse Oximetry 96 Oxygen Delivery Oxygen Flow Rate Fraction of Inspired Oxygen 06/30/25 08:00 06/30/25 08:00 06/30/25 08:00 Temperature 95.5 F L Pulse Rate 76 76 74 Respiratory Rate 16 16 Blood Pressure 136/97 H 136/97 H Pulse Oximetry 97 Oxygen Delivery Oxygen Flow Rate Fraction of Inspired Oxygen 06/30/25 08:00 06/30/25 08:00 06/30/25 08:00 Temperature Pulse Rate 95 93 Respiratory Rate 16 Blood Pressure Pulse Oximetry 95 Oxygen Delivery Mechanical Ventilation Oxygen Flow Rate Fraction of Inspired Oxygen 30 30 06/30/25 08:00 06/30/25 08:15 06/30/25 08:15 Temperature Pulse Rate 81 76 74 Respiratory Rate 16 14 Blood Pressure 143/83 H Pulse Oximetry Oxygen Delivery Oxygen Flow Rate Fraction of Inspired Oxygen 06/30/25 08:17 06/30/25 08:30 06/30/25 08:45 Temperature Pulse Rate 76 74 84 Respiratory Rate Blood Pressure 128/78 116/66 Pulse Oximetry 96 Oxygen Delivery Mechanical Ventilation Oxygen Flow Rate Fraction of Inspired Oxygen 30 06/30/25 09:00 06/30/25 09:30 06/30/25 09:39 Temperature 95.5 F L 95.5 F L Pulse Rate 85 93 Respiratory Rate 14 Blood Pressure 125/79 125/79 Pulse Oximetry 97 Oxygen Delivery Oxygen Flow Rate Fraction of Inspired Oxygen 06/30/25 09:42 06/30/25 09:45 06/30/25 10:00 Temperature 95.5 F L 95.5 F L Pulse Rate 82 82 Respiratory Rate 14 14 Blood Pressure 112/71 Pulse Oximetry 96 Oxygen Delivery Oxygen Flow Rate Fraction of Inspired Oxygen 06/30/25 10:00 06/30/25 10:00 06/30/25 10:00 Temperature 95.6 F L Pulse Rate 82 76 Respiratory Rate 16 Blood Pressure Pulse Oximetry Oxygen Delivery Oxygen Flow Rate Fraction of Inspired Oxygen 06/30/25 10:00 06/30/25 10:00 06/30/25 10:15 Temperature 95.8 F L Pulse Rate 76 81 Respiratory Rate 16 Blood Pressure 116/70 Pulse Oximetry Oxygen Delivery Oxygen Flow Rate Fraction of Inspired Oxygen 06/30/25 10:30 06/30/25 10:59 06/30/25 10:59 Temperature 95.8 F L 96.4 F L 96.4 F L Pulse Rate 81 Respiratory Rate 14 Blood Pressure 116/70 Pulse Oximetry 96 Oxygen Delivery Oxygen Flow Rate Fraction of Inspired Oxygen 06/30/25 11:00 06/30/25 11:00 06/30/25 11:00 Temperature 95.8 F L 95.8 F L Pulse Rate 82 82 Respiratory Rate 16 Blood Pressure 116/70 116/70 Pulse Oximetry 96 Oxygen Delivery Oxygen Flow Rate Fraction of Inspired Oxygen 06/30/25 11:30 06/30/25 11:30 06/30/25 11:40 Temperature 97.1 F L Pulse Rate 83 76 Respiratory Rate Blood Pressure 98/61 L Pulse Oximetry 96 Oxygen Delivery Mechanical Ventilation Oxygen Flow Rate Fraction of Inspired Oxygen 30 06/30/25 12:00 06/30/25 12:00 06/30/25 12:00 Temperature 97.7 F Pulse Rate 85 85 85 Respiratory Rate 14 14 Blood Pressure 107/64 Pulse Oximetry 96 96 Oxygen Delivery Mechanical Ventilation Oxygen Flow Rate Fraction of Inspired Oxygen 30 06/30/25 12:00 06/30/25 12:00 06/30/25 12:00 Temperature Pulse Rate 86 86 Respiratory Rate 14 Blood Pressure 107/64 Pulse Oximetry Oxygen Delivery Oxygen Flow Rate Fraction of Inspired Oxygen 30 06/30/25 12:00 06/30/25 13:00 06/30/25 14:00 Temperature 98.4 F 98.7 F Pulse Rate 86 87 85 Respiratory Rate 14 14 14 Blood Pressure 121/70 124/73 Pulse Oximetry 96 96 Oxygen Delivery Oxygen Flow Rate Fraction of Inspired Oxygen 06/30/25 14:00 06/30/25 14:00 06/30/25 14:00 Temperature Pulse Rate 85 96 96 Respiratory Rate 14 Blood Pressure 113/67 Pulse Oximetry Oxygen Delivery Oxygen Flow Rate Fraction of Inspired Oxygen 06/30/25 14:00 06/30/25 14:34 06/30/25 14:40 Temperature Pulse Rate 96 87 91 Respiratory Rate 14 14 Blood Pressure Pulse Oximetry 94 Oxygen Delivery Mechanical Ventilation Oxygen Flow Rate Fraction of Inspired Oxygen 30 06/30/25 14:43 06/30/25 15:00 06/30/25 16:00 Temperature 98.5 F 98.4 F Pulse Rate 94 96 93 Respiratory Rate 14 14 14 Blood Pressure 122/71 122/72 Pulse Oximetry 94 95 Oxygen Delivery Oxygen Flow Rate Fraction of Inspired Oxygen 06/30/25 16:00 06/30/25 16:00 06/30/25 16:00 Temperature Pulse Rate 90 91 91 Respiratory Rate 14 14 14 Blood Pressure Pulse Oximetry 95 Oxygen Delivery Mechanical Ventilation Oxygen Flow Rate Fraction of Inspired Oxygen 30 06/30/25 16:00 06/30/25 16:00 Temperature Pulse Rate 91 Respiratory Rate Blood Pressure Pulse Oximetry Oxygen Delivery Oxygen Flow Rate Fraction of Inspired Oxygen 30 Intake/Output Intake/Output: Intake & Output 06/27/25 06/28/25 06/29/25 06/30/25 23:59 23:59 23:59 23:59 Intake Total 1000 2178.5 Output Total 375 Balance 1000 1803.5 Meds/Results Medications: Active Medications Generic Name Dose Route Start Last Admin Trade Name Freq PRN Reason Stop Dose Admin Acetaminophen 650 mg 06/30/25 02:27 Acetaminophen 325 Mg Tablet PO Q4H PRN Mild Pain (1-3) or Fever Albuterol 2.5 mg 06/30/25 02:10 06/30/25 14:33 Albuterol Sulfate Neb 2.5 Mg/3 Ml Inh INHALATION 2.5 mg Q6HRT [facility] Administration Atorvastatin Calcium 40 mg 06/30/25 21:00 Atorvastatin 40 Mg Tablet PO QHS [facility] Dextrose 12.5 gm 06/30/25 05:15 Dextrose 50% 25 Gm/50 Ml Syringe IV PUSH PRN PRN Hypoglycemia Protocol Fluticasone/Umeclidinium/Vilanterol 1 puff 06/30/25 08:00 06/30/25 08:14 Fluticasone/Umeclidin/Vilanter 200-62.5-25 Mcg Ellipta INHALATION Not Given DAILYRT [facility] Glucagon 1 mg 06/30/25 05:15 Glucagon For Inj 1 Mg Vial IM PRN PRN Hypoglycemia Protocol Glucose 15 gm 06/30/25 05:15 Glucose Oral Gel 15 Gm Of Glucse In 37.5 Gm Tube PO PRN PRN Hypoglycemia Protocol Midazolam HCl 100 mg in 100 mls @ 5 mls/hr 06/29/25 23:05 06/30/25 16:00 Versed 100 Mg/Ns 100 Ml IV CONT 5 mg/hr .Q20H [facility] 5 mls/hr Titration Protocol 5 MG/HR Albumin Human 100 mls @ 60 mls/hr 06/30/25 01:05 06/30/25 13:06 Albutein IVPB 06/30/25 19:39 Infused Q6HR [facility] Infusion Dextrose 1,000 mls @ 100 mls/hr 06/30/25 05:15 Dextrose 5% 1,000 Ml IVPB PRN PRN Hypoglycemia Protocol Fentanyl Citrate 2,500 mcg in 250 mls @ 2.5 mls/hr 06/30/25 05:25 06/30/25 16:00 Fentanyl 2,500 Mcg/Ns 250 Ml IV CONT 25 mcg/hr .Q72H [facility] 2.5 mls/hr Titration Protocol 25 MCG/HR Cefepime HCl 2 gm/ Sodium 50 mls @ 100 mls/hr 06/30/25 06:00 06/30/25 14:20 Chloride IVPB Infused Q8HR [facility] Infusion Azithromycin 500 mg/ Sodium 250 mls @ 250 mls/hr 07/01/25 00:00 Chloride IVPB Q24H [facility] Lactated Ringer's 1,000 mls @ 100 mls/hr 06/30/25 11:05 06/30/25 11:24 Lr - Lactated Ringers Iv IV CONT 06/30/25 21:04 100 mls/hr .Q10H [facility] Administration Metronidazole 500 mg in 100 mls @ 100 mls/hr 06/30/25 14:00 06/30/25 15:32 Flagyl 500 Mg/Iso Soln 100 Ml IVPB Infused Q8HR [facility] Infusion Fluconazole 400 mg in 200 mls @ 100 mls/hr 06/30/25 14:00 06/30/25 15:50 Diflucan 400 Mg/Nacl 200 Ml IVPB Infused Q24H [facility] Infusion Insulin Aspart 2 - 5 units 06/30/25 12:00 06/30/25 11:35 Insulin Aspart (*Bkc) 100 Units/Ml SUB-Q Not Given Q6HR [facility] Protocol Ipratropium [place] 0.5 mg 06/30/25 02:10 06/30/25 14:33 Ipratropium Br 0.02% Inh Soln 0.5 Mg/2.5 Ml Vial INHALATION 0.5 mg Q6HRT [facility] Administration Methylprednisolone Sodium Succinate 40 mg 06/30/25 02:00 06/30/25 13:51 Methylprednisolone Sod Succ 40 Mg Vial IV PUSH 40 mg Q6H [facility] Administration Multi-Ingred Cream/Lotion/Oil/Oint 1 applic 06/30/25 09:00 06/30/25 09:17 Mineral Oil/White Petrolatum Ointment EACH EYE 1 applic Q12HR [facility] Administration Mycophenolate Mofetil 1,000 mg 06/30/25 09:00 06/30/25 09:16 Mycophenolate Mofetil 250 Mg Capsule PO 1,000 mg Q12HR [facility] Administration Nicotine 1 patch 06/30/25 09:00 06/30/25 09:17 Nicotine (*Lesly) 21 Mg Patch TRANSDERM 1 patch DAILY [facility] Administration Ondansetron HCl 4 mg 06/30/25 02:27 Ondansetron Inj 4 Mg/2 Ml Vial IV PUSH Q4H PRN Nausea Pantoprazole Sodium 40 mg 06/30/25 09:00 06/30/25 07:55 Pantoprazole Sodium Iv 40 Mg Vial IV PUSH 40 mg DAILY [facility] Administration Perflutren Lipid Microsphere 0 ml 06/30/25 05:12 Perflutren Lipid Microspheres 1.5 Ml Vial Diluted To 10 Ml Total Volume IV PUSH 07/03/25 05:13 ONCE PRN adequate visualization Protocol Rivaroxaban 20 mg 06/30/25 17:00 Rivaroxaban 20 Mg Tablet PO DAILY@1700 [facility] Sodium Chloride 6 ml 07/01/25 05:00 Sodium Chlor 3% 15 Ml Neb (Respiratory Therapy) INHALATION 07/03/25 05:01 DAILY@0500 [facility] Sodium Chloride 10 ml 06/30/25 14:00 06/30/25 13:51 Central Line Flush IV PUSH 10 ml Q8HR [facility] Administration Sodium Chloride 20 ml 06/30/25 06:39 Central Line Flush IV PUSH PRN PRN after blood draws Tacrolimus 0.5 mg 06/30/25 09:00 06/30/25 09:17 Tacrolimus 0.5 Mg Capsule PO 0.5 mg Q48H [facility] Administration Radiology Results: ITS Impressions Abdomen X-Ray 06/30/25 00:00 IMPRESSION: Nasogastric tube in good position and ready for immediate use. Chest X-Ray 06/30/25 06:31 Impression: 1: No significant interval change. Chest/Abdomen/Pelvis CTA 06/30/25 09:10 IMPRESSION: 1. No pulmonary embolism. 2. Severe emphysema with new small right pleural effusion and posterior wedge- shaped region of consolidation in the right lower lobe which could represent pneumonia or atelectasis. 3. Stable appearance of additional chronic bilateral lung disease including thick-walled cavitary lung disease with bronchiectasis in the bilateral upper lungs which likely sequela of chronic pneumonia. 4. No interval change in hypodense lesion at the tail the pancreas and rim calcified lesion along the anterior margin of the head of the pancreas which have both been present since 2018. Likely sequela of chronic pancreatitis. 5. Minimal ascites in the deep pelvis. No other acute intra-abdominal/pelvic process. Labs Labs: Laboratory Results - last 24 hr 06/29/25 06/30/25 06/30/25 23:36 00:06 01:59 WBC 11.8 H RBC 2.62 L Hgb 8.6 L Hct 26.4 L MCV 100.8 H MCH 32.8 MCHC 32.6 RDW 20.7 H Plt Count 298 MPV 11.0 H Immature Gran % (Auto) 1.1 H Neut % (Auto) 78.9 H Lymph % (Auto) 12.4 L [place] % (Auto) 3.9 Eos % (Auto) 2.8 Baso % (Auto) 0.9 Lymph # (Auto) 1.46 [place] # (Auto) 0.5 Eos # (Auto) 0.3 Baso # (Auto) 0.1 Abs Immat Gran (auto) 0.13 H Absolute Neuts (auto) 9.3 H Absolute Nucleated RBC 0.000 Band Neutrophils % Nucleated RBC % 0.0 Platelet Estimate Hypochromasia Anisocytosis Target Cells Schistocytes PT 15.0 H INR 1.2 APTT 37.4 H Puncture Site Right brachial ABG pH 7.424 ABG pCO2 42.3 ABG pO2 465.0 H ABG PO2/FiO2 Ratio 4.65 ABG HCO3 27.1 H ABG O2 Saturation 99.9 ABG O2 Content 14.7 L ABG Base Excess 2.4 A-a Gradient 205.7 Oxyhemoglobin 99.4 Total Hemoglobin 9.6 L O2 Delivery Device Ventilator O2 Liters/Min Not Reportable Minute Volume Not Reportable Vent Rate 16 Vent Mode Cmv FiO2 100 Tidal Volume 400 PEEP 5 Peak Inspir Pressure Not Reportable Pressure Support Not Reportable Sodium 137 Potassium 3.2 L Chloride 99 Carbon Dioxide 30 Anion Gap 8 BUN 13 Creatinine 0.57 L Estim Creat Clear Calc Not Reportable Estimated GFR > 60 Glucose 138 H POC Capillary Glucose Hemoglobin A1c Lactic Acid 3.6 H Calcium 8.1 L Magnesium Total Bilirubin 0.4 AST 35 ALT 19 Alkaline Phosphatase 162 H Troponin I < 0.012 NT-Pro-B Natriuret Pep Total Protein 6.7 Albumin 2.4 L Urine Color Urine Appearance Urine pH Ur Specific [place] Urine Protein Urine Glucose (UA) Urine Ketones Ur Blood (Man) Urine Nitrate Urine Bilirubin Urine Urobilinogen Add Ur Microanalysis Leukocyte Esterase Rfl Urine RBC Urine WBC Ur Squamous Epith Cells Urine Bacteria Urine Casts Hyaline Casts Nasal MRSA (PCR) Urine Opiates Screen Urine Methadone Screen Ur Barbiturates Screen Ur Phencyclidine Scrn Ur Amphetamine Screen U Benzodiazepines Scrn Urine Cocaine Screen U Cannabinoids Screen Influenza A (RT-PCR) Influenza B (RT-PCR) RSV (RT-PCR) SARS-CoV-2 RNA (RT-PCR) Urine Pneumococcal Ag 06/30/25 06/30/25 06/30/25 02:00 02:39 05:20 WBC RBC Hgb Hct MCV MCH MCHC RDW Plt Count MPV Immature Gran % (Auto) Neut % (Auto) Lymph % (Auto) [place] % (Auto) Eos % (Auto) Baso % (Auto) Lymph # (Auto) [place] # (Auto) Eos # (Auto) Baso # (Auto) Abs Immat Gran (auto) Absolute Neuts (auto) Absolute Nucleated RBC Band Neutrophils % Nucleated RBC % Platelet Estimate Hypochromasia Anisocytosis Target Cells Schistocytes PT INR APTT Puncture Site Left radial ABG pH 7.500 H ABG pCO2 36.0 ABG pO2 97.2 ABG PO2/FiO2 Ratio 3.24 ABG HCO3 27.4 H ABG O2 Saturation 97.9 ABG O2 Content 12.2 L ABG Base Excess 4.1 A-a Gradient 74.4 Oxyhemoglobin 97.3 Total Hemoglobin 8.8 L O2 Delivery Device Ventilator O2 Liters/Min Not Reportable Minute Volume Not Reportable Vent Rate 16 Vent Mode Cmv FiO2 30 Tidal Volume 400 PEEP 5 Peak Inspir Pressure Not Reportable Pressure Support Not Reportable Sodium Potassium Chloride Carbon Dioxide Anion Gap BUN Creatinine Estim Creat Clear Calc Estimated GFR Glucose POC Capillary Glucose Hemoglobin A1c Lactic Acid Calcium Magnesium Total Bilirubin AST ALT Alkaline Phosphatase Troponin I NT-Pro-B Natriuret Pep Total Protein Albumin Urine Color Yellow Urine Appearance Clear Urine pH 7.0 Ur Specific [place] 1.010 Urine Protein Trace Urine Glucose (UA) Negative Urine Ketones Negative Ur Blood (Man) Negative Urine Nitrate Negative Urine Bilirubin Negative Urine Urobilinogen 0.2 Add Ur Microanalysis Reviewed Leukocyte Esterase Rfl Negative Urine RBC 0-2 Urine WBC 0-5 Ur Squamous Epith Cells None seen Urine Bacteria None seen Urine Casts 6-10 Hyaline Casts Present Nasal MRSA (PCR) Not detected Urine Opiates Screen Urine Methadone Screen Ur Barbiturates Screen Ur Phencyclidine Scrn Ur Amphetamine Screen U Benzodiazepines Scrn Urine Cocaine Screen U Cannabinoids Screen Influenza A (RT-PCR) Influenza B (RT-PCR) RSV (RT-PCR) SARS-CoV-2 RNA (RT-PCR) Urine Pneumococcal Ag 06/30/25 06/30/25 06/30/25 06:13 06:20 07:50 WBC 4.9 RBC 2.36 L Hgb 7.7 L Hct 23.7 L MCV 100.4 H MCH 32.6 MCHC 32.5 RDW 20.6 H Plt Count 270 MPV 10.5 H Immature Gran % (Auto) 0.4 Neut % (Auto) 90.8 H Lymph % (Auto) 7.6 L [place] % (Auto) 0.8 L Eos % (Auto) 0.0 Baso % (Auto) 0.4 Lymph # (Auto) 0.37 L [place] # (Auto) 0.0 L Eos # (Auto) 0.0 Baso # (Auto) 0.0 Abs Immat Gran (auto) 0.02 Absolute Neuts (auto) 4.5 Absolute Nucleated RBC 0.000 Band Neutrophils % Not Reportable Nucleated RBC % 0.0 Platelet Estimate Adequate Hypochromasia 1+ Anisocytosis 1+ Target Cells 1+ Schistocytes None seen PT INR APTT Puncture Site ABG pH ABG pCO2 ABG pO2 ABG PO2/FiO2 Ratio ABG HCO3 ABG O2 Saturation ABG O2 Content ABG Base Excess A-a Gradient Oxyhemoglobin Total Hemoglobin O2 Delivery Device O2 Liters/Min Minute Volume Vent Rate Vent Mode FiO2 Tidal Volume PEEP Peak Inspir Pressure Pressure Support Sodium 134 L Potassium 3.8 Chloride 99 Carbon Dioxide 28 Anion Gap 7 BUN 14 Creatinine 0.50 L Estim Creat Clear Calc 93 Estimated GFR > 60 Glucose 254 H POC Capillary Glucose 249 H Hemoglobin A1c 4.9 Lactic Acid 5.8 H* Calcium 8.5 Magnesium 1.8 Total Bilirubin 0.5 AST 33 ALT 22 Alkaline Phosphatase 130 H Troponin I < 0.012 NT-Pro-B Natriuret Pep 3820 H Total Protein 6.8 Albumin 2.7 L Urine Color Urine Appearance Urine pH Ur Specific [place] Urine Protein Urine Glucose (UA) Urine Ketones Ur Blood (Man) Urine Nitrate Urine Bilirubin Urine Urobilinogen Add Ur Microanalysis Leukocyte Esterase Rfl Urine RBC Urine WBC Ur Squamous Epith Cells Urine Bacteria Urine Casts Hyaline Casts Nasal MRSA (PCR) Not detected Urine Opiates Screen Urine Methadone Screen Ur Barbiturates Screen Ur Phencyclidine Scrn Ur Amphetamine Screen U Benzodiazepines Scrn Urine Cocaine Screen U Cannabinoids Screen Influenza A (RT-PCR) Negative Influenza B (RT-PCR) Negative RSV (RT-PCR) Negative SARS-CoV-2 RNA (RT-PCR) Negative Urine Pneumococcal Ag 06/30/25 06/30/25 06/30/25 08:00 10:39 11:23 WBC RBC Hgb Hct MCV MCH MCHC RDW Plt Count MPV Immature Gran % (Auto) Neut % (Auto) Lymph % (Auto) [place] % (Auto) Eos % (Auto) Baso % (Auto) Lymph # (Auto) [place] # (Auto) Eos # (Auto) Baso # (Auto) Abs Immat Gran (auto) Absolute Neuts (auto) Absolute Nucleated RBC Band Neutrophils % Nucleated RBC % Platelet Estimate Hypochromasia Anisocytosis Target Cells Schistocytes PT INR APTT Puncture Site ABG pH ABG pCO2 ABG pO2 ABG PO2/FiO2 Ratio ABG HCO3 ABG O2 Saturation ABG O2 Content ABG Base Excess A-a Gradient Oxyhemoglobin Total Hemoglobin O2 Delivery Device O2 Liters/Min Minute Volume Vent Rate Vent Mode FiO2 Tidal Volume PEEP Peak Inspir Pressure Pressure Support Sodium Potassium Chloride Carbon Dioxide Anion Gap BUN Creatinine Estim Creat Clear Calc Estimated GFR Glucose POC Capillary Glucose 183 H Hemoglobin A1c Lactic Acid 5.5 H* Calcium Magnesium Total Bilirubin AST ALT Alkaline Phosphatase Troponin I NT-Pro-B Natriuret Pep Total Protein Albumin Urine Color Urine Appearance Urine pH Ur Specific [place] Urine Protein Urine Glucose (UA) Urine Ketones Ur Blood (Man) Urine Nitrate Urine Bilirubin Urine Urobilinogen Add Ur Microanalysis Leukocyte Esterase Rfl Urine RBC Urine WBC Ur Squamous Epith Cells Urine Bacteria Urine Casts Hyaline Casts Nasal MRSA (PCR) Urine Opiates Screen Negative Urine Methadone Screen Negative Ur Barbiturates Screen Negative Ur Phencyclidine Scrn Negative Ur Amphetamine Screen Negative U Benzodiazepines Scrn Positive A Urine Cocaine Screen Negative U Cannabinoids Screen Negative Influenza A (RT-PCR) Influenza B (RT-PCR) RSV (RT-PCR) SARS-CoV-2 RNA (RT-PCR) Urine Pneumococcal Ag Cancelled Quality VTE Prophylaxis VTE prophylaxis: pharmacologic ordered Hospitalist [facility] Advance Care Plan I have confirmed that the patient's Advanced Care Plan is present, code status is documented, or surrogate decision maker is listed in patient medical record.: Yes Medication Reconciliation I have utilized all available resources to obtain, update and review the patients current medications (includes all prescriptions, OTC, herbals, cannabis, and nutritional supplements).: Yes
[2025-06-30] MEDS: MIDAZOLAM 100MG/NS 100ML(*CRX) 100 MG/100 ML BAG IV CONT (17:04)
--- NOTE | 2025-06-30 21:02 | P.CONINF_ITS ---
Assessment and Plan Assessment and plan (1) Shock: Code(s): R57.9 - Shock, unspecified Status: Acute (2) Acute lactic acidosis: Code(s): E87.21 - Acute metabolic acidosis Status: Acute (3) Acute exacerbation of chronic obstructive pulmonary disease: Code(s): J44.1 - Chronic obstructive pulmonary disease with (acute) exacerbation Status: Acute Plan # respiratory failure. No signs of early pneumonia. 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 With lactic acidemia and hypothermia episode. Can not rule out the possibility of sepsis. No obvious intra-abdominal source. With underlying COPD. #Possible COPD exacerbation. #History of AML. Transplant 2008. Complicated by GVHD. Listed as taking Cresemba for presumed prophylaxis. #History of cavitary MAC. Potentially as early as 2019. Treated at [place], infectious Disease. Listed at [facility] as his lawn drug but not clear he is taking this. Plan: Broad-spectrum to cefepime Flagyl plus vancomycin. Consider azithromycin. Holding antifungal therapy although may need to consider voriconazole versus AmBisome if respiratory status worsens. Patient is being transferred to [place]. If he remains here with plan to continue to see him. Patient exam done with the aid of audio and visual HIPPA protected telemedicine. I examined the patient while in [place], [place] with the aid of telemedicine. Patient was in [facility] in [facility]. HPI Data of Consult Date/Time: 06/30/25 21:02 Requesting Physician: Camilo Friedman MD Primary Care Provider: Kirt Lindsay DO Consult Narrative Reason for consult: sepsis. Hypothermia. Respiratory failure Narrative: Brady Jones is a 59 year old male with a complicated past medical history. 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 More recently, he has had treatment for MAC. [place] [address] with tree-in-bud. Treated at [facility] for cavitary MAC. He presented with increased onset shortness of breath. Was intubated. Chest x-ray not indicative of lobar pneumonia. However he became more hypothermic. Blood cultures no growth to date. Was started on cefepime and azithromycin due to concern for possibility of early pneumonia. Previous Pseudomonas sputum culture. No MDRO. Increased lactic acidemia. Chest CT was just performed. Also chest abdomen and pelvis. No obvious intra-abdominal process was noted. No lobar process. Flagyl plus fluconazole added by me to the concerns for sepsis based on patient's clinical status. At time of exam, patient's hypothermia had improved. Plan was to transfer to [facility] to respiratory failure and their familiarity with patient's case. 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% Type 2 diabetes mellitus Chronic obstructive pulmonary disease Systolic congestive heart failure Pancreatitis Non-tuberculous mycobacterial pneumonia MSSA bacteremia Osteopenia Pseudomonas pneumonia Mycobacterium avium complex Chronic qkvap-[id number] disease Chronic respiratory failure with hypoxia, on home oxygen therapy Coronary artery disease Pill esophagitis ST elevation (STEMI) myocardial infarction (12/30/22) Chronic anticoagulation Immunocompromised patient patient on anti rejection medications Positive nasal culture for methicillin resistant Staphylococcus aureus Deep venous thrombosis Chronic obstructive pulmonary disease Sciatica Eczema Anxiety Depression Peyronie's disease Emphysema/COPD 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 Peripheral neuropathy Pulmonary emboli Hyperlipidemia Surgical History Surgical History History of allogeneic hematopoietic stem cell transplant History of bone marrow transplant (2008) History of cataract extraction with lens replacement History of heart artery stent (12/30/22) 100% occlusion mid RCA s/p drug-eluting stent, left coronary system with [id number] disease History of orthopedic surgery Left tibia liz placement Family History Family History Mother Acute myocardial infarction, Onset Age: 42 Father COPD (chronic obstructive pulmonary disease) Diabetes mellitus Alcohol abuse Social History Social History Social History: Surrogate medical decision maker: Lissy Kaiser, friend/roommate. Code status: Full code. Smoking packs per day: 0.25 Smoking cigarettes per day: 5.0 Years smoked: 44 Smoking pack-years: 11.00 Smoking status: Current some day smoker Alcohol intake: unknown Substance use: unknown Do You Feel Safe in your Home?: Yes Lack of Transportation: No Lack of Food: Never True Current Housing: I Have Housing Concerned About Future Housing: No Difficulty Paying Gas/Electric Bills: No Difficulty Paying for Meds: No Currently Unemployed: No Education: High School Diploma/GED Difficulty w/ Childcare or Family Care: No Living arrangements: with family Additional living arrangements comments: He lives with his roommate in [place]. Occupation/Education: unemployed Spiritual care concerns: No Agree to blood products: Yes Meds Home Medications and Allergies Home Medications ?Medication ?Instructions ?Recorded ?Confirmed ?Type rivaroxaban 20 mg tablet (Xarelto) 20 mg PO QAM 02/06/23 06/30/25 History acyclovir 400 mg tablet 400 mg PO TID #90 tabs 01/28/24 04/21/25 Rx montelukast 10 mg tablet 10 mg PO HS #30 tabs 01/28/24 04/21/25 Rx (Singulair) mycophenolate mofetil 500 mg tablet 1,000 mg (2 x 500 mg) PO Q12H #10 01/28/24 06/30/25 Rx tabs tacrolimus 0.5 mg capsule, 0.5 mg PO EVERY OTHER DAY #30 caps 01/28/24 06/30/25 Rx immediate-release (Prograf) albuterol sulfate 90 mcg/actuation 1 puff inhalation Q4-6H PRN 10/23/24 04/21/25 History aerosol inhaler Shortness Of Breath Or Wheezing ondansetron 4 mg disintegrating 4 mg PO Q8H PRN Nausea And Vomiting 10/23/24 04/21/25 History tablet pantoprazole 40 mg tablet,delayed 40 mg PO Q12H 10/23/24 04/21/25 History release isavuconazonium sulfate 186 mg 372 mg PO DAILY 11/25/24 04/21/25 History capsule (Cresemba) fluticasone fur. 200 mcg-umeclid 1 inh inhalation DAILY 02/04/25 06/30/25 History 62.5 mcg-vilant 25 mcg inhalat.powder (Trelegy Ellipta) gabapentin 300 mg capsule 300 mg PO QID 02/04/25 06/30/25 History budesonide 2 mg/10 mL oral 10 ml PO QAM AND QPM 60 days 02/10/25 04/21/25 Rx suspension in packet (Eohilia) #1,200 mL ethambutol 400 mg tablet 800 mg (2 x 400 mg) PO DAILY 60 02/11/25 04/21/25 Rx days #120 tabs tamsulosin 0.4 mg capsule 0.4 mg PO QAM #30 caps 02/11/25 04/21/25 Rx atorvastatin 40 mg tablet 40 mg PO QPM 04/21/25 06/30/25 History albuterol sulfate 2.5 mg/3 mL See Rx Instructions .Route 05/24/25 06/30/25 Rx (0.083 %) solution for nebulization .COMPLEX #180 mL Allergies Allergy/AdvReac Type Severity Reaction Status Date / Time adhesive tape AdvReac Unknown PAPER Verified 04/21/25 11:35 TAPE,REDNESS AND IRRITATION Vital Signs Vital Signs - 24 hr 06/29/25 22:53 06/29/25 23:11 06/29/25 23:15 Temperature Pulse Rate 114 H 118 H Respiratory Rate 38 H Blood Pressure Pulse Oximetry 76 L 100 Oxygen Delivery EMS-CPAP Mechanical Ventilation Oxygen Flow Rate 15 Fraction of Inspired Oxygen 100 06/30/25 00:41 06/30/25 00:42 06/30/25 00:43 Temperature 36.5 C 36.5 C 36.5 C Pulse Rate 107 H 107 H 107 H Respiratory Rate 16 16 16 Blood Pressure 73/49 L 73/56 L Pulse Oximetry Oxygen Delivery Oxygen Flow Rate Fraction of Inspired Oxygen 06/30/25 00:45 06/30/25 00:46 06/30/25 00:47 Temperature 36.5 C 36.5 C 36.6 C Pulse Rate 106 H 107 H 112 H Respiratory Rate 16 16 12 Blood Pressure 73/52 L 91/76 L Pulse Oximetry Oxygen Delivery Oxygen Flow Rate Fraction of Inspired Oxygen 06/30/25 00:48 06/30/25 00:51 06/30/25 00:53 Temperature 36.6 C 36.6 C 36.6 C Pulse Rate 107 H 105 H 110 H Respiratory Rate 16 16 16 Blood Pressure 97/75 L 94/71 L 95/82 L Pulse Oximetry 98 Oxygen Delivery Oxygen Flow Rate Fraction of Inspired Oxygen 06/30/25 00:56 06/30/25 01:00 06/30/25 01:01 Temperature 36.6 C 36.6 C 36.6 C Pulse Rate 104 H 104 H 105 H Respiratory Rate 16 16 16 Blood Pressure 94/70 L 71/56 L Pulse Oximetry 98 Oxygen Delivery Oxygen Flow Rate Fraction of Inspired Oxygen 06/30/25 01:03 06/30/25 01:06 06/30/25 01:08 Temperature 36.6 C 36.6 C 36.6 C Pulse Rate 105 H 104 H 103 H Respiratory Rate 16 16 16 Blood Pressure 68/56 L 71/57 L 82/68 L Pulse Oximetry Oxygen Delivery Oxygen Flow Rate Fraction of Inspired Oxygen 06/30/25 01:11 06/30/25 01:11 06/30/25 01:13 Temperature 36.7 C 36.6 C Pulse Rate 107 H 107 H 105 H Respiratory Rate 16 16 Blood Pressure 68/50 L 96/69 L 86/73 L Pulse Oximetry Oxygen Delivery Oxygen Flow Rate Fraction of Inspired Oxygen 06/30/25 01:15 06/30/25 01:16 06/30/25 01:18 Temperature 36.6 C 36.6 C 36.6 C Pulse Rate 105 H 107 H 103 H Respiratory Rate 16 16 16 Blood Pressure 84/65 L 80/67 L Pulse Oximetry Oxygen Delivery Oxygen Flow Rate Fraction of Inspired Oxygen 06/30/25 01:21 06/30/25 01:23 06/30/25 01:50 Temperature 36.7 C 36.7 C Pulse Rate 104 H 102 H 103 H Respiratory Rate 16 16 Blood Pressure 89/68 L 93/72 L Pulse Oximetry 98 Oxygen Delivery Mechanical Ventilation Oxygen Flow Rate Fraction of Inspired Oxygen 40 06/30/25 02:00 06/30/25 02:07 06/30/25 02:08 Temperature 36.8 C 36.8 C Pulse Rate 100 97 97 Respiratory Rate 18 16 16 Blood Pressure 109/72 Pulse Oximetry Oxygen Delivery Oxygen Flow Rate Fraction of Inspired Oxygen 06/30/25 02:10 06/30/25 02:12 06/30/25 02:15 Temperature 36.8 C 36.8 C 36.8 C Pulse Rate 97 97 98 Respiratory Rate 16 16 18 Blood Pressure 106/80 105/77 110/80 Pulse Oximetry Oxygen Delivery Oxygen Flow Rate Fraction of Inspired Oxygen 06/30/25 02:16 06/30/25 02:17 06/30/25 02:20 Temperature 36.8 C 36.8 C 36.8 C Pulse Rate 98 99 97 Respiratory Rate 16 18 21 H Blood Pressure 150/94 H 100/88 Pulse Oximetry 83 L 85 L 92 Oxygen Delivery Oxygen Flow Rate Fraction of Inspired Oxygen 06/30/25 02:21 06/30/25 02:22 06/30/25 02:25 Temperature 36.8 C 36.8 C Pulse Rate 95 97 104 H Respiratory Rate 18 16 26 H Blood Pressure 121/80 123/76 Pulse Oximetry Oxygen Delivery Oxygen Flow Rate Fraction of Inspired Oxygen 06/30/25 02:28 06/30/25 02:30 06/30/25 02:31 Temperature 36.8 C 36.8 C 36.9 C Pulse Rate 96 95 95 Respiratory Rate 16 16 14 Blood Pressure 130/82 117/77 Pulse Oximetry Oxygen Delivery Oxygen Flow Rate Fraction of Inspired Oxygen 06/30/25 02:32 06/30/25 02:35 06/30/25 02:37 Temperature 36.9 C 36.9 C Pulse Rate 95 94 94 Respiratory Rate 16 16 16 Blood Pressure 108/75 114/75 Pulse Oximetry Oxygen Delivery Oxygen Flow Rate Fraction of Inspired Oxygen 06/30/25 02:37 06/30/25 02:40 06/30/25 02:42 Temperature 36.9 C 36.9 C 36.9 C Pulse Rate 94 93 93 Respiratory Rate 16 16 16 Blood Pressure 117/79 112/74 116/72 Pulse Oximetry Oxygen Delivery Oxygen Flow Rate Fraction of Inspired Oxygen 06/30/25 02:45 06/30/25 02:46 06/30/25 02:47 Temperature 36.9 C 36.9 C 36.9 C Pulse Rate 93 92 93 Respiratory Rate 16 16 16 Blood Pressure 110/71 108/72 Pulse Oximetry Oxygen Delivery Oxygen Flow Rate Fraction of Inspired Oxygen 06/30/25 02:50 06/30/25 02:52 06/30/25 02:55 Temperature 36.9 C 36.8 C 36.9 C Pulse Rate 92 93 91 Respiratory Rate 17 14 16 Blood Pressure 106/71 116/72 108/70 Pulse Oximetry 94 Oxygen Delivery Oxygen Flow Rate Fraction of Inspired Oxygen 06/30/25 02:57 06/30/25 03:00 06/30/25 03:01 Temperature 36.8 C 36.8 C Pulse Rate 92 91 Respiratory Rate 16 16 Blood Pressure 109/72 107/72 Pulse Oximetry 99 Oxygen Delivery Mechanical Ventilation Oxygen Flow Rate Fraction of Inspired Oxygen 06/30/25 03:01 06/30/25 03:02 06/30/25 03:28 Temperature 36.9 C 36.9 C Pulse Rate 91 91 89 Respiratory Rate 16 16 18 Blood Pressure 111/70 Pulse Oximetry 98 98 Oxygen Delivery Oxygen Flow Rate Fraction of Inspired Oxygen 06/30/25 04:00 06/30/25 04:00 06/30/25 04:13 Temperature Pulse Rate 97 97 88 Respiratory Rate 22 H Blood Pressure Pulse Oximetry 98 98 Oxygen Delivery Mechanical Ventilation Mechanical Ventilation Oxygen Flow Rate Fraction of Inspired Oxygen 30 30 06/30/25 04:15 06/30/25 04:15 06/30/25 04:15 Temperature Pulse Rate 90 90 Respiratory Rate 16 Blood Pressure 98/70 L Pulse Oximetry Oxygen Delivery Oxygen Flow Rate Fraction of Inspired Oxygen 30 06/30/25 04:36 06/30/25 04:54 06/30/25 06:00 Temperature 36.3 C L Pulse Rate 96 94 76 Respiratory Rate 18 Blood Pressure 116/75 Pulse Oximetry 97 96 Oxygen Delivery Mechanical Ventilation Oxygen Flow Rate Fraction of Inspired Oxygen 30 06/30/25 06:00 06/30/25 06:00 06/30/25 06:00 Temperature 36.4 C 36.4 C Pulse Rate 86 86 86 Respiratory Rate 16 16 16 Blood Pressure 111/75 111/75 Pulse Oximetry 96 96 Oxygen Delivery Oxygen Flow Rate Fraction of Inspired Oxygen 06/30/25 06:00 06/30/25 06:26 06/30/25 07:00 Temperature 35.7 C L Pulse Rate 86 81 79 Respiratory Rate 16 16 Blood Pressure 111/75 136/85 Pulse Oximetry 96 Oxygen Delivery Oxygen Flow Rate Fraction of Inspired Oxygen 06/30/25 08:00 06/30/25 08:00 06/30/25 08:00 Temperature 35.3 C L Pulse Rate 76 76 74 Respiratory Rate 16 16 Blood Pressure 136/97 H 136/97 H Pulse Oximetry 97 Oxygen Delivery Oxygen Flow Rate Fraction of Inspired Oxygen 06/30/25 08:00 06/30/25 08:00 06/30/25 08:00 Temperature Pulse Rate 95 93 Respiratory Rate 16 Blood Pressure Pulse Oximetry 95 Oxygen Delivery Mechanical Ventilation Oxygen Flow Rate Fraction of Inspired Oxygen 30 30 06/30/25 08:00 06/30/25 08:15 06/30/25 08:15 Temperature Pulse Rate 81 76 74 Respiratory Rate 16 14 Blood Pressure 143/83 H Pulse Oximetry Oxygen Delivery Oxygen Flow Rate Fraction of Inspired Oxygen 06/30/25 08:17 06/30/25 08:30 06/30/25 08:45 Temperature Pulse Rate 76 74 84 Respiratory Rate Blood Pressure 128/78 116/66 Pulse Oximetry 96 Oxygen Delivery Mechanical Ventilation Oxygen Flow Rate Fraction of Inspired Oxygen 30 06/30/25 09:00 06/30/25 09:30 06/30/25 09:39 Temperature 35.3 C L 35.3 C L Pulse Rate 85 93 Respiratory Rate 14 Blood Pressure 125/79 125/79 Pulse Oximetry 97 Oxygen Delivery Oxygen Flow Rate Fraction of Inspired Oxygen 06/30/25 09:42 06/30/25 09:45 06/30/25 10:00 Temperature 35.3 C L 35.3 C L Pulse Rate 82 82 Respiratory Rate 14 14 Blood Pressure 112/71 Pulse Oximetry 96 Oxygen Delivery Oxygen Flow Rate Fraction of Inspired Oxygen 06/30/25 10:00 06/30/25 10:00 06/30/25 10:00 Temperature 35.3 C L Pulse Rate 82 76 Respiratory Rate 16 Blood Pressure Pulse Oximetry Oxygen Delivery Oxygen Flow Rate Fraction of Inspired Oxygen 06/30/25 10:00 06/30/25 10:00 06/30/25 10:15 Temperature 35.4 C L Pulse Rate 76 81 Respiratory Rate 16 Blood Pressure 116/70 Pulse Oximetry Oxygen Delivery Oxygen Flow Rate Fraction of Inspired Oxygen 06/30/25 10:30 06/30/25 10:59 06/30/25 10:59 Temperature 35.4 C L 35.8 C L 35.8 C L Pulse Rate 81 Respiratory Rate 14 Blood Pressure 116/70 Pulse Oximetry 96 Oxygen Delivery Oxygen Flow Rate Fraction of Inspired Oxygen 06/30/25 11:00 06/30/25 11:00 06/30/25 11:00 Temperature 35.4 C L 35.4 C L Pulse Rate 82 82 Respiratory Rate 16 Blood Pressure 116/70 116/70 Pulse Oximetry 96 Oxygen Delivery Oxygen Flow Rate Fraction of Inspired Oxygen 06/30/25 11:30 06/30/25 11:30 06/30/25 11:40 Temperature 36.2 C L Pulse Rate 83 76 Respiratory Rate Blood Pressure 98/61 L Pulse Oximetry 96 Oxygen Delivery Mechanical Ventilation Oxygen Flow Rate Fraction of Inspired Oxygen 06/30/25 12:00 06/30/25 12:00 06/30/25 12:00 Temperature 36.5 C Pulse Rate 85 85 85 Respiratory Rate 14 14 Blood Pressure 107/64 Pulse Oximetry 96 96 Oxygen Delivery Mechanical Ventilation Oxygen Flow Rate Fraction of Inspired Oxygen 30 06/30/25 12:00 06/30/25 12:00 06/30/25 12:00 Temperature Pulse Rate 86 86 Respiratory Rate 14 Blood Pressure 107/64 Pulse Oximetry Oxygen Delivery Oxygen Flow Rate Fraction of Inspired Oxygen 30 06/30/25 12:00 06/30/25 13:00 06/30/25 14:00 Temperature 36.9 C 37.1 C Pulse Rate 86 87 85 Respiratory Rate 14 14 14 Blood Pressure 121/70 124/73 Pulse Oximetry 96 96 Oxygen Delivery Oxygen Flow Rate Fraction of Inspired Oxygen 06/30/25 14:00 06/30/25 14:00 06/30/25 14:00 Temperature Pulse Rate 85 96 96 Respiratory Rate 14 Blood Pressure 113/67 Pulse Oximetry Oxygen Delivery Oxygen Flow Rate Fraction of Inspired Oxygen 06/30/25 14:00 06/30/25 14:34 06/30/25 14:40 Temperature Pulse Rate 96 87 91 Respiratory Rate 14 14 Blood Pressure Pulse Oximetry 94 Oxygen Delivery Mechanical Ventilation Oxygen Flow Rate Fraction of Inspired Oxygen 30 06/30/25 14:43 06/30/25 15:00 06/30/25 16:00 Temperature 36.9 C 36.9 C Pulse Rate 94 96 93 Respiratory Rate 14 14 14 Blood Pressure 122/71 122/72 Pulse Oximetry 94 95 Oxygen Delivery Oxygen Flow Rate Fraction of Inspired Oxygen 06/30/25 16:00 06/30/25 16:00 06/30/25 16:00 Temperature Pulse Rate 90 91 91 Respiratory Rate 14 14 14 Blood Pressure Pulse Oximetry 95 Oxygen Delivery Mechanical Ventilation Oxygen Flow Rate Fraction of Inspired Oxygen 30 06/30/25 16:00 06/30/25 16:00 06/30/25 17:00 Temperature 36.8 C Pulse Rate 91 88 Respiratory Rate 14 Blood Pressure 125/78 Pulse Oximetry 95 Oxygen Delivery Oxygen Flow Rate Fraction of Inspired Oxygen 30 06/30/25 17:04 06/30/25 17:04 Temperature Pulse Rate 91 91 Respiratory Rate 14 14 Blood Pressure Pulse Oximetry Oxygen Delivery Oxygen Flow Rate Fraction of Inspired Oxygen Exam 2 Narrative: He was seen with the aid of telemedicine with audio and visual aid. Patient intubated. PE feet. If it is 0.35. Inflated. Some grimace with abdominal palpation by the present. Diffuse. No obvious phlebitis. His left subclavian PICC line/ central line. No other ports. NoObvious rash. Results Labs 06/30/25 06:13 06/30/25 06:13 Labs: Short CBC 06/30/25 06/30/25 Range/Units 00:06 06:13 WBC 11.8 H 4.9 (4.5-10.0) K/mm3 Hgb 8.6 L 7.7 L (14.0-18.0) g/dL Hct 26.4 L 23.7 L (42.0-52.0) % Plt Count 298 270 (150-375) k/mm3 BMP 06/30/25 06/30/25 00:06 06:13 Sodium 137 134 L Potassium 3.2 L 3.8 Chloride 99 99 Carbon Dioxide 30 28 BUN 13 14 Creatinine 0.57 L 0.50 L Glucose 138 H 254 H Calcium 8.1 L 8.5 Cardiac Enzymes 06/30/25 06/30/25 Range/Units 00:06 06:13 Troponin I < 0.012 < 0.012 (0.000-0.034) ng/mL Liver Function 06/30/25 06/30/25 Range/Units 00:06 06:13 Total Bilirubin 0.4 0.5 (0.2-1.3) mg/dL AST 35 33 (17-59) U/L ALT 19 22 (6-50) U/L Alkaline Phosphatase 162 H 130 H (38-126) U/L Albumin 2.4 L 2.7 L (3.5-5.1) g/dL Urine 06/30/25 Range/Units 02:00 Urine Color Yellow (Yellow) Urine Appearance Clear (Clear) Urine pH 7.0 (5.0-9.0) Ur Specific Rosie 1.010 (1.001-1.035) Urine Protein Trace (Negative) mg/dL Urine Glucose (UA) Negative (Negative) mg/dL
--- NOTE | 2025-07-02 17:05 | P.TS_ITS ---
Transfer Discharge Sum: Prov Provider Date of admission: 06/30/25 02:27 Primary care physician: Kirt Lindsay DO Admitting clinician: Camilo Friedman MD Consults: 06/30/25 Consult to Physician Routine Comment: Consulting Provider: Darell Pacheco manager call center/MD group to consult: Infectious Disease Reason for consultation: Hx of PSA in sputum and Hx of MAC - unsure of actual original provider need Has provider been notified: Yes Consult to Physician Routine Comment: Consulting Provider: Ivelisse Webber Reason for consultation: respiratory failure, intubaton, COPD, hypotension Has provider been notified: Yes 06/30/25 05:19 Consult Infectious Disease Pharmacist Routine Comment: 06/30/25 08:41 Consult Infectious Disease Pharmacist Routine Comment: Initiate coordination of ID Physician consult. DS: Admitting Diagnosis Discharge Date 06/30/25 Admitting Diagnosis Acute respiratory failure DS: Discharge Diagnosis Discharge Diagnosis (1) Respiratory failure requiring intubation: Code(s): J96.90 - Respiratory failure, unspecified, unspecified whether with hypoxia or hypercapnia Status: Acute Assessment and Plan: 06/30: Patient presented in the early hours of 06/30 with respiratory extremis, possible COPD exacerbation, ?pneumonia, has a history of PE -06/30: Intubated in the ED upon arrival -currently on CMV mode of ventilation, peep of 5, 30% FiO2, maintain O2 sats greater than 90-92% -ABGs and chest x-ray reviewed, ventilator adjusted -continue bronchodilators and home Trelegy Ellipta -continue Solu-Medrol -sedated with fentanyl and Versed infusion, maintain RASS of 0 to -2, daily SBT and SAT (2) COPD exacerbation: Code(s): J44.1 - Chronic obstructive pulmonary disease with (acute) exacerbation Status: Acute Assessment and Plan: Acute respiratory failure likely related to COPD exacerbation -continue steroids, mechanical ventilation, bronchodilators (3) Shock: Code(s): R57.9 - Shock, unspecified Status: Acute Assessment and Plan: Patient presented with shock on likely multifactorial hypovolemia, septic -patient was given 2 L IV fluid bolus in the ER, central line was inserted in the left subclavian started on Levophed -currently on Levophed, maintain MAP > 65 mmHg or SBP > 100 mmHg for adequate end organ perfusion -06/30: Blood cultures have been obtained and pending -812: Urine cultures obtained and pending -06/30: Sputum cultures have been ordered along with AFB culture and smear -patient started on cefepime and azithromycin (06/30) -MRSA screen is negative -lactic acid levels elevated this morning, received ended 1 L IV fluid bolus -monitor lactic acid levels -continue maintenance IV fluids, (4) Diabetes mellitus: Qualifiers: Diabetes mellitus type: type 2 Diabetes mellitus terminal computer operator insulin use: with halfway use Diabetes mellitus complication status: with other specified complication Qualified Code(s): E11.69 - Type 2 diabetes mellitus with other specified complication; Z79.4 - emt intermediate (current) use of insulin Code(s): E11.9 - Type 2 diabetes mellitus without complications Status: Acute Assessment and Plan: Sliding scale insulin Accu-Cheks (5) Systolic congestive heart failure: Code(s): I50.20 - Unspecified systolic (congestive) heart failure Status: Acute Assessment and Plan: Patient has a history of coronary artery disease, CHF with EF of 40% on echocardiogram 12/04/2024 -proBNP was 3820 -chest x-ray did not show any pulmonary edema -repeat echocardiogram has been ordered (6) Tobacco dependence: Code(s): F17.200 - Nicotine dependence, unspecified, uncomplicated Status: Acute Assessment and Plan: Nicotine patch was placed by hospitalist (7) Chronic anemia: Code(s): D64.9 - Anemia, unspecified Status: Chronic Assessment and Plan: Patient has a history of AML status post bone marrow transplant -continue tacrolimus and mycophenolate Mofetil -check tacrolimus level -hemoglobin 7.7 this morning, continue to monitor, will transfuse for Hb < 7.0 (8) Chronic anticoagulation: Code(s): Z79.01 - emt intermediate (current) use of 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 Status: Acute Assessment and Plan: Patient has a history of PE, on rivaroxaban, will continue Transfer Discharge Sum: Med Medications Active and Home Medications: Home Medications rivaroxaban 20 mg tablet (Xarelto) 20 mg PO QAM 02/06/23 [History Confirmed 06/30/25] acyclovir 400 mg tablet 400 mg PO TID #90 tabs 01/28/24 [Rx Confirmed 04/21/25] montelukast 10 mg tablet (Singulair) 10 mg PO HS #30 tabs 01/28/24 [Rx Confirmed 04/21/25] mycophenolate mofetil 500 mg tablet 1,000 mg (2 x 500 mg) PO Q12H #10 tabs 01/28/24 [Rx Confirmed 06/30/25] tacrolimus 0.5 mg capsule, immediate-release (Prograf) 0.5 mg PO EVERY OTHER DAY #30 caps 01/28/24 [Rx Confirmed 06/30/25] albuterol sulfate 90 mcg/actuation aerosol inhaler 1 puff inhalation Q4-6H PRN Shortness Of Breath Or Wheezing 10/23/24 [History Confirmed 04/21/25] ondansetron 4 mg disintegrating tablet 4 mg PO Q8H PRN Nausea And Vomiting 10/23/24 [History Confirmed 04/21/25] pantoprazole 40 mg tablet,delayed release 40 mg PO Q12H 10/23/24 [History Confirmed 04/21/25] isavuconazonium sulfate 186 mg capsule (Cresemba) 372 mg PO DAILY 11/25/24 [History Confirmed 04/21/25] fluticasone fur. 200 mcg-umeclid 62.5 mcg-vilant 25 mcg inhalat.powder (Trelegy Ellipta) 1 inh inhalation DAILY 02/04/25 [History Confirmed 06/30/25] gabapentin 300 mg capsule 300 mg PO QID 02/04/25 [History Confirmed 06/30/25] budesonide 2 mg/10 mL oral suspension in packet (Eohilia) 10 ml PO QAM AND QPM 60 days #1,200 mL 02/10/25 [Rx Confirmed 04/21/25] ethambutol 400 mg tablet 800 mg (2 x 400 mg) PO DAILY 60 days #120 tabs 02/11/25 [Rx Confirmed 04/21/25] tamsulosin 0.4 mg capsule 0.4 mg PO QAM #30 caps 02/11/25 [Rx Confirmed 04/21/25] atorvastatin 40 mg tablet 40 mg PO QPM 04/21/25 [History Confirmed 06/30/25] albuterol sulfate 2.5 mg/3 mL (0.083 %) solution for nebulization See Rx Instructions .Route .COMPLEX #180 mL 05/24/25 [Rx Confirmed 06/30/25] Transfer Discharge Sum: Hosp Hospital Course Hospital course: Brady Jones is a 59 year old male with significant past medical history of bone marrow transplant, COPD with chronic respiratory failure on 5 L home O2, Mac pneumonia, Pseudomonas pneumonia, type 2 diabetes with recent admission for DKA, coronary artery disease status post stents in RCA, depression, AML, hyperlipidemia, pulmonary embolism, peripheral neuropathy, CHF presented to the ED in the early hours of 06/30/2025 with complains of respiratory distress which has been progressively worsening since yesterday (06/29) evening. EMS was called upon arrival patient was found to be in respiratory extremis and placed him on BiPAP, Decadron IV was given, nebulizer treatments along with magnesium sulfate in IV fluids. Patient was requesting for intubation as he could not move any air breathe. He was successfully intubated in the ER, did have some low blood pressures, was given 2 L IV fluid bolus, left subclavian central line was inserted, patient started on Levophed. Patient was started on cefepime, and azithromycin and transferred to the ICU for further management. Labs in the ER: WBC 11.8, hemoglobin 8.6, platelets 298, INR 1.2, ABGs post extubation load pretty good. Sodium 137, potassium 3.2, CO2 30, anion gap 8, BUN 13, creatinine 0.57, lactic acid 3.6, LFTs within normal limits, troponin negative x2. UA was negative. MRSA screen was negative Chest x-ray showed right apical scarring and volume loss with right hemithorax with a right-sided pleural effusion Patient seen and examined the ICU this morning, remains intubated on CMV mode of ventilation, peep of 5, 30% FiO2. Sedated with fentanyl and Versed infusion, does not open of follows simple commands, withdraws to pain. Patient remains on Levophed at 5 mcg/min. Lactic acid is elevated this morning to 5.8. Afebrile, low urine out.Due to multiple comorbid conditions patient was transferred to tertiary hospital. Patient Condition: Gaurded Prognosis Time Spent with Patient Time attestation: Total time spent providing and/or coordinating transfer services: 45 minute Exam Narrative: General: Emaciated, in the appearing gentleman, intubated and sedated, in no acute distress HEENT:? Sunken eyes, pupils equal and reactive sclera is clear, ETT in place Neck:? Supple Respiratory:? Clear to auscultation bilaterally, coarse breath sounds at bases and right upper lobe, no wheezing, adequate air entry Cardiac:? S1-S2 normal, regular rate and rhythm Abdomen:? Soft, nontender, nondistended, hypoactive bowel sounds Extremities:? No edema, palpable pedal pulse Neuro:? Intubated, sedated, does not open his eyes or follow simple commands Skin:? Warm and dry Psych:? Unable to assess at this time DS: Data Data Completed and Pending Labs on day of discharge: Preliminary micro results at discharge 06/30/25 01:59 Blood Culture - Preliminary Blood 06/30/25 02:18 Blood Culture - Preliminary Blood
[2025-07-04 13:08] LABS: Tacrolimus (FK506), Blood <0.5 ng/mL (5.0-20.0)
== END 2025-06-30 17:16 | disposition short-term general hospital (02) | DRG 871 ==
LOC: ANHED 06-30 02:04 → ANHICU 06-30 02:36
PROVIDERS: Internal Medicine; Nurse Practitioner; Admitting Provider General Practice; Emergency Provider Student in an Organized Health Care Education/Training Program; PCP Internal Medicine; Visit Provider General Practice
DX: A41.9 Sepsis, unspecified organism (principal); E43 Unspecified severe protein-calorie malnutrition; J96.21 Acute and chronic respiratory failure with hypoxia; J44.1 Chronic obstructive pulmonary disease with (acute) exacerbation; I50.22 Chronic systolic (congestive) heart failure; Z94.81 Bone marrow transplant status; A31.0 Pulmonary mycobacterial infection; E87.21 Acute metabolic acidosis; R57.9 Shock, unspecified; Z68.1 Body mass index [BMI] 19.9 or less, adult; D64.9 Anemia, unspecified; E78.5 Hyperlipidemia, unspecified; E11.65 Type 2 diabetes mellitus with hyperglycemia; F32.A Depression, unspecified; F17.210 Nicotine dependence, cigarettes, uncomplicated; F41.9 Anxiety disorder, unspecified; I25.10 Atherosclerotic heart disease of native coronary artery without angina pectoris; I25.2 Old myocardial infarction; J43.9 Emphysema, unspecified; R68.0 Hypothermia, not associated with low environmental temperature; Z99.81 Dependence on supplemental oxygen; Z79.01 Long term (current) use of 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; Z20.822 Contact with and (suspected) exposure to COVID-19; Z86.718 Personal history of other venous thrombosis and embolism; Z85.6 Personal history of leukemia; Z86.711 Personal history of pulmonary embolism; Z95.5 Presence of coronary angioplasty implant and graft; Z87.01 Personal history of pneumonia (recurrent)
CPT/HCPCS: 31500; 36415; 36556; 36600; 71045; 71275; 74177; 80053; 80197; 80307; 81001; 82805; 82948; 83036; 83605; 83735; 83880; 84484; 85018; 85025; 85610; 85730; 87040; 87449; 87637; 87641; 87899; 93005; 93306; 94002; 94640; 96365; 96367; 96372; 96375; 99291; A9270; C1751; J0168; J0456; J0692; J0696; J1450; J1815; J1836; J2250; J2470; J2919; J3010; J3105; J7030; J7050; J7120; J7517; P9047; Q9967